=== PATIENT | male | born 1935 | race Caucasian/White ===

== ENCOUNTER 2020-04-18 10:30 | Inpatient (IN) | payer MEDICARE, SELFPAY ==
[2019-05-18 09:24] VITALS: BMI 32.9
[2020-04-18] VITALS (10 sets, daily range): BP systolic 137–149; BP diastolic 64–72; PULSE 61–100; RESP 16–27; TEMP 36.2–36.6; O2SAT 94–97; BMI 31.5; BMI 36.4
--- NOTE | 2020-04-18 10:53 | EKG12_ITS ---
Test Reason : GEN ILLNESS Blood Pressure : / mmHG Vent. Rate : 071 BPM Atrial Rate : 081 BPM P-R Int : 000 ms QRS Dur : 110 ms QT Int : 406 ms P-R-T Axes : 000 -23 107 degrees QTc Int : 441 ms Atrial Fibrillation with controlled rate Incomplete left bundle branch block T wave abnormality, consider lateral ischemia Abnormal ECG Confirmed by ADRI AVILA, PALMA ([id number]), news video editor GEE DUNCAN ([id number]) on 04/22/2020 9:07:53 AM Referred By: [facility] Confirmed By:PALMA RUSH MD
--- NOTE | 2020-04-18 10:55 | ED.DCSUM_ITS ---
History of Present Illness Informant: Patient Onset: Weeks Narrative: 84-year-old male with past medical history of hypertension, hyperlipidemia, Mobitz type I heart block, stage III chronic kidney disease presents with increased lower extremity swelling and shortness of breath. He states his legs have been swelling progressively over the last 3 weeks. Over the last several days he felt short of breath at rest and dyspneic on exertion. Denies orthopnea. States he has a mild dry cough. According to his medication list he stopped taking HCTZ in October 2019 and there are no other diuretics listed. Denies fevers, chills, nausea, vomiting, abdominal pain, diarrhea, or urinary symptoms. Denies chest, arm, jaw, or neck discomfort. Denies orthopnea, palpitations, lightheadedness, dizziness, near syncope, or syncopal episodes. <Xena Zimmer - Last Filed: 04/18/20 12:32> <Eric Franklin - Last Filed: 04/18/20 12:43> Chief Complaint: General Illness Past Medical History Past Medical History: - - Hypertension, hyperlipidemia, stage III chronic kidney disease Smoking Status: Never smoker <Xena Zimmer - Last Filed: 04/18/20 12:32> <rEic Franklin - Last Filed: 04/18/20 12:43> - Allergies and Home Meds Allergies/Adverse Reactions: Allergies pioglitazone [From Actos] Allergy (Verified 05/18/19 09:24) fatigue simvastatin [From Zocor] Allergy (Verified 05/18/19 09:24) myalgia sitagliptin [From Januvia] Allergy (Verified 05/18/19 09:24) unknown Review of Systems General: Denies: Chills, Fever, Sweats Eyes: Denies: Visual changes - bilaterally, Diplopia ENT: Denies: Rhinorrhea, Sore throat Cardiovascular: Denies: Chest pain, Palpitations Respiratory: Reports: Dyspnea, Cough, Dyspnea on exertion. Denies: Sputum, Orthopnea, Paroxysmal nocturnal dyspnea Gastrointestinal: Denies: Abdominal pain, Nausea, Vomiting, Diarrhea, Melena, Hematochezia Genitourinary: Denies: Dysuria, Hematuria, Frequency Musculoskeletal: Reports: Swelling. Denies: Back pain, Extremity Pain Skin: Denies: Rash, Wounds Neurological: Denies: Headache, Weakness, Numbness <Xena Zimmer - Last Filed: 04/18/20 12:32> Physical Exam Vital Signs/Narrative: Vital Signs Temp Pulse Resp BP Pulse Ox 04/18/20 10:31 97.1 F L 76 16 139/64 H 97 Inital Vital Signs reviewed: Yes General: Well nourished, Well developed, No Acute Distress Head: Normocephalic, Atraumatic Eyes: Perrl, EOMI ENT: Moist mucous membranes, No rhinorrhea Neck: Supple, Nontender Cardiovascular: Regular rate, Regular rhythm, No murmurs Respiratory: No distress, Chest nontender, - - crackles throughout lung meyers Abdomen: Soft, Nontender, Normal bowel sounds, - - Mild abdominal distention, soft with no guarding or rebound Back: Nontender, Normal Inspection Extremities: Nontender, - - 3+ pitting edema in bilateral lower extremities to the thighs, significant swelling of the scrotum. No overlying skin changes or warmth. Skin: Normal color, No rash Neurological: Alert, Oriented x3, Cranial nerves II-XII grossly intact, Normal Strength, Normal Sensation Psychological: Normal affect, Normal Mood <Xena Zimmer - Last Filed: 04/18/20 12:32> Vital Signs/Narrative: Vital Signs Temp Pulse Resp BP Pulse Ox 04/18/20 10:31 97.1 F L 76 16 139/64 H 97 <Eric Franklin - Last Filed: 04/18/20 12:43> Diagnostic/Tx/Re-eval Clinical Impression(s) from Imaging Studies Chest X-Ray 04/18/20 11:35 IMPRESSION: Pulmonary congestion/vascular crowding Mild atelectasis/scarring Electronically Signed: Earl Flynn DO at 11:48 EST Tel , Service support , Laboratory Data 04/18/20 04/18/20 11:20 11:20 WBC 12.8 H RBC 4.17 L Hgb 12.0 L Hct 36.8 L MCV 88.2 MCH 28.8 MCHC 32.6 RDW Std Deviation 49.7 H RDW Coeff of Frances 15.4 H Plt Count 153 MPV 12.6 H Immature Gran % (Auto) 0.600 Neut % (Auto) 86.7 H Lymph % (Auto) 3.0 L [place] % (Auto) 8.7 Eos % (Auto) 0.8 Baso % (Auto) 0.2 Absolute Neuts (auto) 11.1 H Absolute Lymphs (auto) 0.39 L Nucleated RBC % 0 Differential Comment SCANNED Sodium 136 Potassium 5.2 H Chloride 109 H Carbon Dioxide 18.0 L Anion Gap 9 BUN 88 H Creatinine 5.71 H Estim Creat Clear Calc 10.30 Est GFR (MDRD) Af Amer 12 L Est GFR (MDRD) Non-Af 10 L BUN/Creatinine Ratio 15.4 Glucose 83 Calcium 8.4 L Total Bilirubin 0.90 AST 30 ALT 67 H Alkaline Phosphatase 169 H Total Protein 6.9 Albumin 2.6 L Globulin 4.3 H Albumin/Globulin Ratio 0.6 L - Rhythm Strip Rhythm Strip: Sinus Rhythm Rate: 71 - 2nd degree AV block Ectopy: None - Medical Decision Making Patient presented with increased lower extremity swelling and shortness of breath x3 weeks. He appears well nontoxic. Vital signs within normal limits. O2 sat 97% on room air. He is in no respiratory distress. Heart is regular rate and rhythm. Lungs have diffuse crackles. He does have 3+ pitting edema in bilateral legs up both thighs with significant scrotal swelling and abdominal distention. Labs show mild leukocytosis and anemia. BUN/creatinine is 88/5.71. No previous labs for comparison. Mild hyperkalemia of 5.2. BNP unable to be obtained because machine is being repaired. EKG shows sinus rhythm with Mobitz 1 which is chronic and asymptomatic. No hyperkalemic changes. Chest x-ray shows pulmonary congestion. Echo from 11/17/2016 shows EF of 55% and no significant valvular abnormalities. He was given IV Lasix 20 mg. Case discussed with hospitalist who was agreeable to admission and he was transferred to the floor in stable condition. <Xena Zimmer - Last Filed: 04/18/20 12:32> - Medical Decision Making Independent history and physical was performed. Patient presents because of dyspnea, dyspnea on exertion, swelling of his extremities. He denies fever, chills night sweats. Patient reported no renal disease to me. 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 Patient has difficulty lying flat. He does report dyspnea on exertion. He denies chest discomfort with exertion. He denies black or maroon-colored stool. Vital signs noted. He appears tachypneic. He is not hypoxic. He has rales noted bilaterally. Heart is regular without murmur, gallop or rub. He has significant pitting edema/anasarca. EKG was obtained to rule out acute cardiac ischemia, appropriate labs. EKG reveals a Mobitz type I second-degree heart block. Chest x-ray reveals co ngestive heart failure/fluid overload state. Creatinine is elevated. Plan is admission to the hospital. <Eric Franklin - Last Filed: 04/18/20 12:43> ED Disposition <Xena Zimmer - Last Filed: 04/18/20 12:32> <Eric Franklin - Last Filed: 04/18/20 12:43> - Plan for ED Patient: Disposition: Acute Care Hospital [facility] Diagnosis: Acute on chronic renal failure, Swelling of both lower extremities, Hyperkalemia, Chronic kidney disease, stage III (moderate), Dyspnea
[2020-04-18 11:32] LABS: Absolute Lymphocyte Count 0.39 X10^3/uL (0.83-4.51); Absolute Neutrophil Count 11.1 X10^3/uL (2.0-7.7); Basophil# 0.02 X10^3/uL; Basophil% 0.2 % (0-1); Eosinophils% 0.8 % (0-5); Hematocrit 36.8 % (40-54); Lymphocyte # 0.39 X10^3/ul (4.0); Mean Corp Hgb Conc 32.6 g/dL (32-36); Mean Corpuscular Hgb 28.8 pg (27.0-32.0); Mean Corpuscular Volume 88.2 fL (80-94); Mean Platelet Vol. 12.6 fl (6.2-12.0); Monocyte# 1.11 X10^3/uL; Monocyte% 8.7 % (0-10); NRBC Flagged by Analyzer 0 % (0-5); Neutrophil # 11.13 X10^3/uL (2.7-7.7); Neutrophil % 86.7 % (47-70); POSITIVE DIFFERENTIAL YES; Platelet Count 153 K/mm3 (150-450); RBC Distribution Width CV 15.4 % (11.6-14.6); RBC Distribution Width SD 49.7 fl (35.1-43.9); Red Blood Count 4.17 M/mm3 (4.6-6.2); White Blood Count 12.8 K/mm3 (4.4-11.0)
[2020-04-18 11:34] LABS: Differential Indicated SCAN CRITERIA MET
--- NOTE | 2020-04-18 11:35 | RAD_ITS ---
STUDY: X-RAY CHEST REASON FOR EXAM: Male, 84 years old. CONCERNED FOR KIDENY AND HEART FAILURE. PT VAGUE ON SX OR DETAILS TECHNIQUE: Single AP portable view of the chest. COMPARISON: None. FINDINGS: Low lung volumes. Cardiac silhouette unremarkable. Pulmonary congestion/vascular crowding. Aorta unremarkable. No focal patchy airspace opacities. No pleural effusions. Mild atelectasis/scarring. Upper abdomen unremarkable. Osseous structures intact with degenerative changes. No pneumothorax. RAD/Chest 1 View (Portable) IMPRESSION: Pulmonary congestion/vascular crowding Mild atelectasis/scarring Electronically Signed: Earl Flynn DO at 11:48 EST Tel , Service support ,
[2020-04-18 11:47] LABS: ALB/GLOB Ratio 0.6 RATIO (0.9-2.4); AST(SGOT) 30 U/L (15-37); Alanine Aminotransfer ALT/SGPT 67 U/L (16-61); Albumin, Serum 2.6 g/dL (3.2-5.0); Alkaline Phosphatase 169 U/L (45-117); Anion Gap 9 (5-15); BUN 88 mg/dL (7-18); BUN/Creat Ratio 15.4 RATIO (10-20); Calcium,Total 8.4 mg/dL (8.5-10.1); Chloride 109 mmol/L (98-107); Creatinine, Serum 5.71 mg/dL (0.70-1.30); Differential Comment SCANNED; EST Glomerular Filtration Rate 10 mL/min (>60); Est Glom Filt Rate - Afr Amer 12 mL/min (>60); Globulin 4.3 g/dL (2.2-4.2); Glucose 83 mg/dL (74-106); Potassium 5.2 mmol/L (3.5-5.1); Protein, Total 6.9 g/dL (6.4-8.2); Sodium Level 136 mmol/L (136-145)
[2020-04-18 12:06] LABS: Mucous, Urine 0 SEEN /hpf (<or=2+); Red Blood Cells-Urine 0 SEEN /hpf (0-5); Squamous Epithelial Cells - UA 0 SEEN /hpf (0-5)
[2020-04-18 12:09] LABS: Color, Urine Straw (Yellow); Glucose, Dipstick Normal (Normal); Ketone-Dipstick Negative (Negative); Leukocyte Esterase-Dipstick 500 /ul (Negative); Nitrite-Dipstick Negative (Negative); Occult Blood-Urine 25 /ul (Negative); Protein-Dipstick 30 mg/dl (Negative); Urine Bilirubin Dipstick Negative (Negative); Urine Clarity Sl. Cloudy (Clear); Urine Urobilinogen Normal (Normal)
[2020-04-18 12:21] LABS: BNP,B-Type NATRIURETIC PEPTIDE 306.8 pg/mL (0-100)
[2020-04-18 12:31] LABS: White Blood Cells 10-25 SEEN /hpf (0-5)
[2020-04-18 12:32] LABS: Bacteria 3+ /hpf (None Seen)
--- NOTE | 2020-04-18 12:32 | HP.PCM_ITS ---
History of Present Illness Date of Admission: 04/18/20 Chief Complaint: generalised edema The patient is a 84 year old M with a PMH as outlined who was at the ED on 04/18/2020 with a complaint of generalized edema. Patient states he is noticed that his legs have been swollen for several days and was also short of breath. He said he could not lay flat and lay on his side. He denied any PND. He states he is making urine and he has not noticed any decrease in quantity of his urine. He denies any chest pain or pressure, palpitations, dizziness, nausea vomiting or diarrhea. He denied any fever or chills. Review of systems otherwise negative. Denies any previous history of heart disease or heart fail ure. In the ED, vitals show temperature of 91.1 with blood pressure of 137/70, pulse rate of 83 respiratory rate of 21. He was saturating at 95% on room air. Chemistry showed sodium of 136 with potassium of 5.2, bicarb of 18 and anion gap of 9. Creatinine was 5.71. BNP was 306.8 and ALP was 169. Troopnin was not checked. Chemistry showed hemoglobin of 12 with WBC of 12.8 and platelets of 15 3. X-ray showed pulmonary congestion and mild atelectasis and EKG showed no acute ST changes. He has been admitted to be managed for KITTY on CKD, and acute heart failure of unknown EF. [] Past Medical History Past Medical History (Chronic Problems): Chronic Problems (Last Reviewed 05/04/18 @ 09:[address] 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 Laron Bacon MD) High risk medication use (Chronic) Z79.899 HLD (hyperlipidemia) (Chronic) E78.5 HTN (hypertension) (Chronic) I10 Chronic kidney disease, stage III (moderate) (Chronic) N18.3 Left bundle-branch block (Chronic) I44.7 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 (Chronic) I44.1 Abnormal electrocardiogram (Chronic) R94.31 Allergies pioglitazone [From Actos] Allergy (Verified 05/18/19 09:24) fatigue simvastatin [From Zocor] Allergy (Verified 05/18/19 09:24) myalgia sitagliptin [From Januvia] Allergy (Verified 05/18/19 09:24) unknown Home Medications: Ambulatory Orders Medication Instructions Recorded amlodipine 10 mg tablet 10 mg PO QDAY 05/12/17 aspirin 81 mg tablet,delayed 81 mg PO QDAY 05/12/17 release insulin glargine 100 unit/mL (3 SC 75 Days #15 05/12/17 mL) subcutaneous pen lisinopril 40 mg tablet 40 mg PO QDAY 05/12/17 cholecalciferol (vitamin D3) 125 5,000 unit PO DAILY 05/04/18 mcg (5,000 unit) capsule glipizide 10 mg tablet 10 mg PO BID tab 05/18/19 Surgical History: Surgical History (Last Reviewed 05/04/18 @ 09:[address] Laron Bacon MD) History of appendectomy Z98.890, Z90.49 History of inguinal hernia repair Z98.890, Z87.19 1970s Psychiatric History: No pertinent psych hx Lives: Spouse/ Significant Other Smoking Status: Never smoker Tobacco Use: Non-smoker Alcohol: None Drugs: None - *Family History Maternal Family History: Family History (Last Reviewed 05/04/18 @ 09:[address] Laron Bacon MD) Mother Hypertension Father Diabetes Review of Systems Constitutional: Denies: Chills, Fever, Malaise, Weakness, Weight Change Eyes: Denies: Blurred vision HEENT: Denies: Head Aches, Sinus Congestion, Sinus Drainage Cardiovascular: Reports: Edema, Orthopnea, - - generalised edema. Denies: Chest Pain, Chest Pressure, Chest Tightness, Heaviness, Light Headedness, Palpitations, Paroxysmal Noc. Dyspnea, Syncope Respiratory: Reports: Shortness of Breath, Shortness of breath at rest, Shortness of breath upon exertion. Denies: Cough, Sputum production Gastrointestinal: Denies: Abdominal Pain, Nausea, Vomiting Genitourinary: Denies: Dysuria Musculoskeletal: Denies: Joint Pain, Joint Tenderness Skin: Denies: Rash, Wounds Neurological: Denies: Numbness, Tingling, Focal weakness Psychiatric: Denies: Anxiety, Depression, Homicidal Ideations, Suicidal Ideations Hematologic/ Lymphatic: Denies: Easy Bruising, Easy Bleeding VTE Information - Inpt Only VTE Present on Admission: No VTE Pharm Prophylaxis ordered?: Yes Patient Problems: Active and Suspected Problems (Last Reviewed 05/04/18 @ 09:[address] Laron Bacon MD) Swelling of both lower extremities (Acute) Hyperkalemia (Acute) Dyspnea (Acute) - Physical Exam Vitals/I&O's: Vital Signs Temp Pulse Resp BP Pulse Ox 97.1 F L 76 16 139/64 H 97 04/18/20 10:31 04/18/20 10:31 04/18/20 10:31 04/18/20 10:31 04/18/20 10:31 Oxygen Delivery Method Room Air Weight: 220 lb Body Mass Index (BMI) 31.5 General: Alert, Oriented x3, Cooperative, No apparent distress HEENT: Atraumatic, PERRLA, EOMI, Normocephalic Oral: Dry Mucosa Neck: Supple, No JVD, Negative Carotid Bruits Lungs: - - diminished breath sounds bibasally. Cardiovascular: Regular rate, Regular Rhythm, Normal S1, Normal S2, No murmurs Abdomen: Bowel Sounds Present, Soft, Non Tender, Non-Distended, No Hepato- splenomegaly, Obese Extremities: No clubbing, No cyanosis, Edema - 3+ pitting edema of both extremities Skin: No rashes, No breakdown Musculoskeletal: No Tenderness to Palpation of Joints or Extremities Lymphatic: No Cervical, Supraclavicular, or Inguinal Adenopathy Neurological: Cranial nerves II-XII grossly intact, Neuro grossly intact, Motor Exam 5/5 strength throughout Psych/Mental Status: Normal Affect, Appropriate, Alert and oriented to time, place, person, mood and affect Laboratory Results 04/18/20 11:20: WBC 12.8 H, RBC 4.17 L, Hgb 12.0 L, Hct 36.8 L, MCV 88.2, MCH 28.8, MCHC 32.6, RDW Std Deviation 49.7 H, RDW Coeff of Frances 15.4 H, Plt Count 153, MPV 12.6 H, Immature Gran % (Auto) 0.600, Neut % (Auto) 86.7 H, Lymph % (Auto) 3.0 L, [place] % (Auto) 8.7, Eos % (Auto) 0.8, Baso % (Auto) 0.2, Absolute Neuts (auto) 11.1 H, Absolute Lymphs (auto) 0.39 L, Nucleated RBC % 0, Differential Comment SCANNED 04/18/20 11:20: Sodium 136, Potassium 5.2 H, Chloride 109 H, Carbon Dioxide 18.0 L, Anion Gap 9, BUN 88 H, Creatinine 5.71 H, Estim Creat Clear Calc 10.30, Est GFR (MDRD) Af Amer 12 L, Est GFR (MDRD) Non-Af 10 L, BUN/Creatinine Ratio 15.4, Glucose 83, Calcium 8.4 L, Total Bilirubin 0.90, AST 30, ALT 67 H, Alkaline Phosphatase 169 H, Total Protein 6.9, Albumin 2.6 L, Globulin 4.3 H, Albumin/Globulin Ratio 0.6 L 04/18/20 11:20: B-Natriuretic Peptide 306.8 H 04/18/20 11:50: Urine Color Straw, Urine Clarity Sl. Cloudy, Urine pH 5.0, Ur Specific [place] 1.010, Urine Protein 30 H, Urine Glucose (UA) Normal, Urine Ketones Negative, Urine Occult Blood 25 H, Urine Nitrite Negative, Urine Bilirubin Negative, Urine Urobilinogen Normal, Ur Leukocyte Esterase 500 H, Urine RBC 0 SEEN, Urine WBC 10-25 SEEN, Ur Squamous Epith Cells 0 SEEN, Urine Bacteria 3+, Urine Mucus 0 SEEN Diagnostic Data Chest X-Ray 04/18/20 11:35 IMPRESSION: Pulmonary congestion/vascular crowding Mild atelectasis/scarring Electronically Signed: Earl Flynn DO at 11:48 EST Tel , Service support , Assessment/Plan All Active Problems (Last Reviewed 05/04/18 @ 09:[address] Laron Bacon MD) Swelling of both lower extremities (Acute) Hyperkalemia (Acute) Dyspnea (Acute) 84 y/o admitted with a complaint of shortness of breath and generalised edema # Acute heart failure with unknown EF * BNP is ~ 300 * CXR shows pulmonary vascular congestion. No 2D echo on file. * Patient given a dose of Lasix 20 mg in the ED. * Will start on Lasix drip on account of severe KITTY on CKD. Patient still making good urine. * Titrate oxygen to maintain saturation above 90%. * Intake and output chart. Fluid restriction thousand 500 cc daily. * 2D echo. * Check troponins and cycle. * covid test pending * #KITTY on CKD 3 * Creatinine is 5.71. No baseline creatinine in EMR although it is documented in the EMR that patient has CKD stage III. * Will check urine electrolytes. Check renal ultrasound * Consult nephrology. * #UTI: UA showed 3+ bacteria. Will start on IV ceftriaxone. WBC is 12.8. Get urine culture. #Hyperkalemia * Potassium is 5.2. This likely due to KITTY on CKD. Give Kayexalate and monitor. * #Non anion gap metabolic acidosis * Creatinine is 18. Anion gap is 9. This likely due to KITTY on CKD. Will monitor. * Should improve with improvement in kidney function. #Diabetes mellitus: ISS. Accuchecks ACHS and glipizide 10 mg twice daily. Also on lantus #Hypertension: Hold lisinopril on account of KITTY on CKD and hyperkalemia. IV hydralazine as needed DVT prophylaxis: Lovenox renally dosed CODE STATUS: Full code * Patient counseled extensively about different types of CODE STATUS including full code, DNR CCA and DNR CCA. Patient elects to be full code. Total rnir-do-rcys time 16 minutes. Inpatient E&M: 40334 Init Hosp L3 Procedures: 62462 Advncd Care Plan 30 Min
[2020-04-18] MEDS: Furosemide 20 MG/2 ML VIAL IV (12:56)
--- NOTE | 2020-04-18 13:52 | ED.RN ---
called pharmacy for an update on rocephin.
[2020-04-18] MEDS: Ceftriaxone 1 GM/50 ML BAG IV (13:56)
--- NOTE | 2020-04-18 15:20 | US_ITS ---
STUDY: RENAL ULTRASOUND - COMPLETE REASON FOR EXAM: Male, 84 years old. KITTY TECHNIQUE: Ultrasound evaluation of the kidneys was performed with real-time and static jackson-scale imaging. COMPARISON: None. FINDINGS: RIGHT KIDNEY: Normal location of the right kidney, which is normal in size. The right kidney measures 12.1 x 5.1 x 6.1 cm. There is a normal cortex of the right kidney. The renal cortex measures 2.1 cm. There is no right renal mass or cyst. There are no right renal calculi. There is no right hydronephrosis. DISTAL RIGHT URETER: There is non-visualization of the distal right ureter. There is no demonstrated right ureterovesical junction calculus. There is a visualized right ureteral jet. LEFT KIDNEY: Normal location of the left kidney, which is normal in size. The left kidney measures 11.9 x 5.6 x 6.8 cm. There is a normal cortex of the left kidney. The renal cortex measures 1.6 cm. There is a cyst measuring 2.6 x 2.5 x 2.1 cm. There are no left renal calculi. There is no left hydronephrosis. DISTAL LEFT URETER: There is non-visualization of the distal left ureter. There is no demonstrated left ureterovesical junction calculus. There is a visualized left ureteral jet. Diffusely increased cortical echoes consistent with nonspecific renal parenchymal disease BLADDER: The bladder is empty containing CHAMORRO catheter. US/Kidney and Bladder IMPRESSION: Nonspecific renal parenchymal disease. Small left renal cyst. Electronically Signed: Abhijeet Moya MD at 20:36 EST , Service support ,
--- NOTE | 2020-04-18 15:59 | PCM.HP.ID ---
Reason for Consult: covid Ag (+) Consulted by: Dr. Orozco History of Present Illness: The patient is a 84 year old M presented with several weeks of BLE edema, orthopnea, PND. Some back aches, but not out of the ordinary. Occasionally takes Aleve. No fever, no change in taste or smell, no headache, no n/v/d. No sick contacts, lives alone, does not go out. Came to ED, found to have KITTY, given ceftriaxone x1 and lasix. Covid Ag (+). Full ROS performed and neg except as noted above. - Medical History Past Medical History (Chronic Problems): Chronic Problems (Last Reviewed 05/04/18 @ 09:[address] Laron Bacon MD) Acute on chronic renal failure (Chronic) High risk medication use (Chronic) HLD (hyperlipidemia) (Chronic) HTN (hypertension) (Chronic) Chronic kidney disease, stage III (moderate) (Chronic) Left bundle-branch block (Chronic) 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 (Chronic) Abnormal electrocardiogram (Chronic) Allergies/Adverse Reactions: Allergies pioglitazone [From Actos] Allergy (Verified 05/18/19 09:24) fatigue simvastatin [From Zocor] Allergy (Verified 05/18/19 09:24) myalgia sitagliptin [From Januvia] Allergy (Verified 05/18/19 09:24) unknown Home Medications: Ambulatory Orders Medication Instructions Recorded amlodipine 10 mg tablet 10 mg PO QDAY 05/12/17 aspirin 81 mg tablet,delayed 81 mg PO QDAY 05/12/17 release lisinopril 40 mg tablet 40 mg PO QDAY 05/12/17 glipizide 10 mg tablet 10 mg PO BID tab 05/18/19 Insulin Glargine [Lantus (BKC)] 30 units SC DINNER 04/18/20 Metoprolol Tartrate 12.5 mg PO BID 04/18/20 - Social History Tobacco Use: non-smoker Vital Signs Temp Pulse Resp BP Pulse Ox 97.8 F 82 16 137/72 H 95 04/18/20 15:56 04/18/20 15:56 04/18/20 15:56 04/18/20 15:56 04/18/20 15:56 Oxygen Delivery Method Room Air Weight: 115.212 kg Body Mass Index (BMI) 36.4 Microbiology Past 72 Hours 04/18/20 13:05 SARS-CoV-2 Antigen (Rapid) - Final Mucosa - Nose SARS-CoV-2 (COVID 19) Laboratory Tests Past 24 Hrs 04/18/20 04/18/20 04/18/20 11:20 11:20 11:20 WBC 12.8 H RBC 4.17 L Hgb 12.0 L Hct 36.8 L MCV 88.2 MCH 28.8 MCHC 32.6 RDW Std Deviation 49.7 H RDW Coeff of Frances 15.4 H Plt Count 153 MPV 12.6 H Immature Gran % (Auto) 0.600 Neut % (Auto) 86.7 H Lymph % (Auto) 3.0 L [place] % (Auto) 8.7 Eos % (Auto) 0.8 Baso % (Auto) 0.2 Absolute Neuts (auto) 11.1 H Absolute Lymphs (auto) 0.39 L Nucleated RBC % 0 Differential Comment SCANNED Sodium 136 Potassium 5.2 H Chloride 109 H Carbon Dioxide 18.0 L Anion Gap 9 BUN 88 H Creatinine 5.71 H Estim Creat Clear Calc 10.30 Est GFR (MDRD) Af Amer 12 L Est GFR (MDRD) Non-Af 10 L BUN/Creatinine Ratio 15.4 Glucose 83 Calcium 8.4 L Total Bilirubin 0.90 AST 30 ALT 67 H Alkaline Phosphatase 169 H B-Natriuretic Peptide 306.8 H Total Protein 6.9 Albumin 2.6 L Globulin 4.3 H Albumin/Globulin Ratio 0.6 L Urine Color Urine Clarity Urine pH Ur Specific [place] Urine Protein Urine Glucose (UA) Urine Ketones Urine Occult Blood Urine Nitrite Urine Bilirubin Urine Urobilinogen Ur Leukocyte Esterase Urine RBC Urine WBC Ur Squamous Epith Cells Urine Bacteria Urine Mucus 04/18/20 11:50 WBC RBC Hgb Hct MCV MCH MCHC RDW Std Deviation RDW Coeff of Frances Plt Count MPV Immature Gran % (Auto) Neut % (Auto) Lymph % (Auto) [place] % (Auto) Eos % (Auto) Baso % (Auto) Absolute Neuts (auto) Absolute Lymphs (auto) Nucleated RBC % Differential Comment Sodium Potassium Chloride Carbon Dioxide Anion Gap BUN Creatinine Estim Creat Clear Calc Est GFR (MDRD) Af Amer Est GFR (MDRD) Non-Af BUN/Creatinine Ratio Glucose Calcium Total Bilirubin AST ALT Alkaline Phosphatase B-Natriuretic Peptide Total Protein Albumin Globulin Albumin/Globulin Ratio Urine Color Straw Urine Clarity Sl. Cloudy Urine pH 5.0 Ur Specific [place] 1.010 Urine Protein 30 H Urine Glucose (UA) Normal Urine Ketones Negative Urine Occult Blood 25 H Urine Nitrite Negative Urine Bilirubin Negative Urine Urobilinogen Normal Ur Leukocyte Esterase 500 H Urine RBC 0 SEEN Urine WBC 10-25 SEEN Ur Squamous Epith Cells 0 SEEN Urine Bacteria 3+ Urine Mucus 0 SEEN - Other Studies Radiology: [] reviewed Other Studies: [] Route of nutrition/ use of supplements: [] Nutritional Intake: [] IV Site: [] Lozano Catheter: [] - Physical Exam General: Alert, Oriented x3, Cooperative, No apparent distress HEENT: Atraumatic, PERRLA, EOMI Neck: Supple, No Nodes Lungs: Rales - dull in bases Cardiovascular: Regular rate, Regular Rhythm Abdomen: Soft, Non Tender, Non-Distended - edema Extremities: Edema Skin: No rashes IV Site: Peripheral, without redness Musculoskeletal: No Tenderness to Palpation of Joints or Extremities Neurological: Cranial nerves II-XII grossly intact - Assessment/Plan Antibiotics: [] Assessment/Plan: [] Active and Suspected Problems (Last Reviewed 05/04/18 @ 09:[address] Laron Bacon MD) Swelling of both lower extremities (Acute) Hyperkalemia (Acute) Dyspnea (Acute) KITTY, BLE edema, orthopnea - covid Ag (+), no clear exposure, no associated symptoms. Does have lymphopenia. Will check covid pcr; if neg, ok to stop isolation. Minimal wbc on UA, ucx pending, will monitor off of abx. Will follow, thank you, aidan Orozco.
[2020-04-18] MEDS: Furosemide 500 MG in Empty Viaflex 50 mL 1 EACH CONT INF (16:18)
--- NOTE | 2020-04-18 16:35 | NURSING ---
CHRISTIAN wraps applied.
--- NOTE | 2020-04-18 16:42 | NURSING ---
about 15 minutes ago blood glucose was 50 gave 2 containers of apple juice, blood glucose now is 82.
--- NOTE | 2020-04-18 16:44 | NURSING ---
dustin legs elevated on pillow
[2020-04-18 17:01] LABS: Bedside Glucose 50 mg/dL (70-110)
[2020-04-18 17:01] LABS: Bedside Glucose 82 mg/dL (70-110)
[2020-04-18 17:34] LABS: Urea Nitrogen, Urine 230 mg/dL (NO RANGE EST.)
[2020-04-18 18:06] LABS: Protein, Urine (Random) 23.9 mg/dL (<11.9); Protein:Creat Ratio 779 mg/g CRE (0-200)
[2020-04-18] MEDS: Sodium Polystyrene Sulfonate 15 GM/60 ML UDC PO (18:42)
--- NOTE | 2020-04-18 19:20 | NURSING ---
Pt denies taking Viagra or any other ED meds in the last 48 to 72 hours.
[2020-04-18 22:21] LABS: Bedside Glucose 103 mg/dL (70-110)
--- NOTE | 2020-04-18 22:53 | CON.PCM_ITS ---
Consultation - Renal 04/18/20 PCP/ Referring MD: Requesting physician: Dr. Orozco Primary care physician: Dr. Jean Yan MD Reason for Consultation:: KITTY on CKD - History of Present Illness History of Present Illness: The patient is a 84 year old M with past history of HTN, hyperlipidemia, and T2DM. The patient also has a history of CKD stage 3 although he is not followed by nephrology. The patient presents with a 2 weeks history of progressive SOB and LE edema. There is no chest pain, orthopnea, and PND. He denies urinary frequency, urgency or hesitancy. He denies gross hematuria. There is no incontinence. The patient denies diarrhea. He denies chronic nausea but has occasional dry heave. He denies chronic use of NSAID. The patient was on lisinopril prior to admission. The patient was found to have SCr of 5.71 mg/dL. There is no prior SCr on [facility] for comparison. - Allergies Allergies: Allergies pioglitazone [From Actos] Allergy (Verified 05/18/19 09:24) fatigue simvastatin [From Zocor] Allergy (Verified 05/18/19 09:24) myalgia sitagliptin [From Januvia] Allergy (Verified 05/18/19 09:24) unknown - Current Medications Current Medications: Current Medications Amlodipine Besylate (Amlodipine 10 Mg Tablet) 10 mg PO DAILY [facility] Aspirin (Aspirin E.C. 81 Mg Tablet) 81 mg PO DAILY [facility] Cholecalciferol (Cholecalciferol (Vit D3) 1,000 Unit (25mcg)) 5,000 unit PO DAILY [facility] Enoxaparin Sodium (Enoxaparin 30 Mg/0.3 Ml Syringe) 30 mg SC DAILY [facility] Glipizide (Glipizide 10 Mg Tablet) 10 mg PO BIDAC [facility] Last Admin: 04/18/20 16:19 Dose: Not Given Documented by: Furosemide 500 mg/ N/A 50 mls @ 1 mls/hr CONT INF .Q50H [facility] Last Admin: 04/18/20 16:18 Dose: 10 mg/hr, 1 mls/hr Documented by: Sodium Chloride () 250 mls @ 15 mls/hr IV .[id number] PRN PRN Reason: Saline Flush Last Infusion: 04/18/20 16:52 Dose: 0 mls/hr Documented by: Sodium Chloride () 250 mls @ 15 mls/hr IV .[id number] PRN PRN Reason: Additional IVPB Infusion Influenza Virus Vaccine Quadrival (Influenza Vaccine (6mos+)/Pf 0.5 Ml Syringe) 0.5 ml IM .ONCE ONE Stop: 04/19/20 10:01 Insulin Human Lispro (Insulin Lispro 100 Unit/Ml Insuln.Pen) 0 unit SC [facility]; Protocol Last Admin: 04/18/20 21:58 Dose: Not Given Documented by: Nitroglycerin (Nitroglycerin (Inpatient Use) 0.4 Mg Tab.Subl) 0.4 mg SUBLINGUAL Q5M PRN PRN Reason: CARDIAC/CHEST PAIN Ondansetron HCl (Ondansetron 4 Mg/2 Ml Vial) 4 mg IV Q8H PRN PRN PRN Reason: NAUSEA/VOMITING Sodium Chloride (0.9% Saline Lock 10 Ml Syringe) 2 - 6 ml IV UD PRN PRN Reason: Pediatric Saline Flush - Past Medical History Past Medical History (Chronic Problems): Chronic Problems (Last Reviewed 05/04/18 @ 09:[address] 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 Laron Bacon MD) Mother Hypertension Father Diabetes Review of Systems Constitutional: Reports: Malaise, Weakness. Denies: Anorexia, Chills, Fever Eyes: Denies: Blurred vision, Double vision, Pain, Redness, Vision Change HEENT: Denies: Difficulty Hearing, Difficulty Swallowing, Ear Pain, Eye Pain, Head Aches, Sinus Drainage, Sore Throat Cardiovascular: Reports: Edema. Denies: Chest Pain, Orthopnea, Palpitations, Paroxysmal Noc. Dyspnea Respiratory: Reports: Shortness of Breath, Shortness of breath at rest, Shortness of breath upon exertion. Denies: Cough, Hemoptysis Gastrointestinal: Reports: Constipation. Denies: Abdominal Pain, Diarrhea, Hematemesis, Hematochezia, Nausea, Melena, Vomiting Genitourinary: Denies: Dysuria, Frequency, Hematuria, Hesitancy, Incontinence, Retention, Urgency Musculoskeletal: Denies: Arm Pain, Joint Pain, Joint swelling, Joint Tenderness Skin: Denies: Rash, Wounds Neurological: Denies: Numbness, Tingling, Focal weakness Psychiatric: Denies: Anxiety, Depression, Homicidal Ideations, Suicidal Ideations Hematologic/ Lymphatic: Denies: Easy Bruising, Easy Bleeding Patient Problems: Active and Suspected Problems (Last Reviewed 05/04/18 @ 09:[address] Laron Bacon MD) Swelling of both lower extremities (Acute) Hyperkalemia (Acute) Dyspnea (Acute) - Physical Exam Vitals/I&O's: Vital Signs Temp Pulse Resp BP Pulse Ox 97.9 F 83 18 144/64 H 94 04/18/20 21:47 04/18/20 21:47 04/18/20 21:47 04/18/20 21:47 04/18/20 21:47 Oxygen Delivery Method Room Air Weight: 115.212 kg Body Mass Index (BMI) 36.4 Intake and Output for Last 24 Hours 04/16/20 04/17/20 04/18/20 23:59 23:59 23:59 Intake Total 358.75 / 358.75 Output Total 700 / 700 Balance -341.25 / -341.25 General: Alert, Oriented x3, Cooperative HEENT: Atraumatic, PERRLA, EOMI, Normocephalic Oral: Moist Mucosa Neck: Supple, No JVD Lungs: Diminished - breath sound at bases Cardiovascular: Regular rate, Normal S1, Normal S2 Abdomen: Bowel Sounds Present, Soft, Non Tender Extremities: No clubbing, No cyanosis, Edema - 3+ Skin: No rashes, No breakdown Musculoskeletal: No Tenderness to Palpation of Joints or Extremities Lymphatic: No Cervical, Supraclavicular, or Inguinal Adenopathy Neurological: Cranial nerves II-XII grossly intact Psych/Mental Status: Normal Affect Microbiology Past 72 Hours 04/18/20 13:05 Mucosa - Nose SARS-CoV-2 Antigen (Rapid) - Final SARS-CoV-2 (COVID 19) Laboratory Results 04/18/20 11:20: WBC 12.8 H, RBC 4.17 L, Hgb 12.0 L, Hct 36.8 L, MCV 88.2, MCH 28.8, MCHC 32.6, RDW Std Deviation 49.7 H, RDW Coeff of Frances 15.4 H, Plt Count 153, MPV 12.6 H, Immature Gran % (Auto) 0.600, Neut % (Auto) 86.7 H, Lymph % (Auto) 3.0 L, [place] % (Auto) 8.7, Eos % (Auto) 0.8, Baso % (Auto) 0.2, Absolute Neuts (auto) 11.1 H, Absolute Lymphs (auto) 0.39 L, Nucleated RBC % 0, Differential Comment SCANNED 04/18/20 11:20: Sodium 136, Potassium 5.2 H, Chloride 109 H, Carbon Dioxide 18.0 L, Anion Gap 9, BUN 88 H, Creatinine 5.71 H, Estim Creat Clear Calc 10.30, Est GFR (MDRD) Af Amer 12 L, Est GFR (MDRD) Non-Af 10 L, BUN/Creatinine Ratio 15.4, Glucose 83, Calcium 8.4 L, Total Bilirubin 0.90, AST 30, ALT 67 H, Alkaline Phosphatase 169 H, Total Protein 6.9, Albumin 2.6 L, Globulin 4.3 H, Albumin/Globulin Ratio 0.6 L 04/18/20 11:20: B-Natriuretic Peptide 306.8 H 04/18/20 11:50: Urine Color Straw, Urine Clarity Sl. Cloudy, Urine pH 5.0, Ur Specific [place] 1.010, Urine Protein 30 H, Urine Glucose (UA) Normal, Urine Ketones Negative, Urine Occult Blood 25 H, Urine Nitrite Negative, Urine Bilirubin Negative, Urine Urobilinogen Normal, Ur Leukocyte Esterase 500 H, Urine RBC 0 SEEN, Urine WBC 10-25 SEEN, Ur Squamous Epith Cells 0 SEEN, Urine Bacteria 3+, Urine Mucus 0 SEEN 04/18/20 16:00: Urine Creatinine 28.60, Urine Urea Nitrogen 230 04/18/20 16:00: U Random Total Protein 23.9 H, Urine Creatinine 30.70, Protein/Creatinin Ratio 779 H 04/18/20 16:10: COVID-19 (EZEKIEL) Not Detected 04/18/20 16:13: POC Glucose 50 L 04/18/20 16:39: POC Glucose 82 04/18/20 17:37: Troponin I 0.016 04/18/20 20:42: Troponin I 0.016 04/18/20 21:56: POC Glucose 103 Current Medications Amlodipine Besylate (Amlodipine 10 Mg Tablet) 10 mg PO DAILY [facility] Aspirin (Aspirin E.C. 81 Mg Tablet) 81 mg PO DAILY [facility] Cholecalciferol (Cholecalciferol (Vit D3) 1,000 Unit (25mcg)) 5,000 unit PO DAILY [facility] Enoxaparin Sodium (Enoxaparin 30 Mg/0.3 Ml Syringe) 30 mg SC DAILY [facility] Glipizide (Glipizide 10 Mg Tablet) 10 mg PO BIDAC [facility] Last Admin: 04/18/20 16:19 Dose: Not Given Documented by: Furosemide 500 mg/ N/A 50 mls @ 1 mls/hr CONT INF .Q50H [facility] Last Admin: 04/18/20 16:18 Dose: 10 mg/hr, 1 mls/hr Documented by: Sodium Chloride () 250 mls @ 15 mls/hr IV .[id number] PRN PRN Reason: Saline Flush Last Infusion: 04/18/20 16:52 Dose: 0 mls/hr Documented by: Sodium Chloride () 250 mls @ 15 mls/hr IV .[id number] PRN PRN Reason: Additional IVPB Infusion Influenza Virus Vaccine Quadrival (Influenza Vaccine (6mos+)/Pf 0.5 Ml Syringe) 0.5 ml IM .ONCE ONE Stop: 04/19/20 10:01 Insulin Human Lispro (Insulin Lispro 100 Unit/Ml Insuln.Pen) 0 unit SC [facility]; Protocol Last Admin: 04/18/20 21:58 Dose: Not Given Documented by: Nitroglycerin (Nitroglycerin (Inpatient Use) 0.4 Mg Tab.Subl) 0.4 mg SUBLINGUAL Q5M PRN PRN Reason: CARDIAC/CHEST PAIN Ondansetron HCl (Ondansetron 4 Mg/2 Ml Vial) 4 mg IV Q8H PRN PRN PRN Reason: NAUSEA/VOMITING Sodium Chloride (0.9% Saline Lock 10 Ml Syringe) 2 - 6 ml IV UD PRN PRN Reason: Pediatric Saline Flush Assessment/Plan All Active Problems (Last Reviewed 05/04/18 @ 09:[address] Laron Bacon MD) Swelling of both lower extremities (Acute) Hyperkalemia (Acute) Dyspnea (Acute) 1. Acute kidney injury on chronic kidney disease. The pt has CK stage 3 on history. Possible CKD from diabetic nephropathy. However, there is no older/recent SCr for comparison. Will try to get more recent SCr from Dr. Nielsen office on Tuesday. KITTY is likely due to cardiorenal syndrome. UA showed 1+ protein but no RBC. Will check UPCR. Agree with diuresing the pt since he is volume overloaded (edema, pulmonary vascular congestion on Xray, and diminished breath sound on exam). Await echocardiogram Will check renal ultrasound, urine indices. No urgent need for dialysis tonight. Recheck renal function in am. 2. Hyperkalemia. Mildly increased K at 5.2. Hyperkalemia is due to KITTY and prior use of ACEI. Agree with holding lisinopril. Recheck K in am. Renal diet. 3. Metabolic acidosis. Serum HCO3 is 18. Recheck in am. No need for naHCO3 at this point. 4. Volume overload. May be due to KITTY/CKD. owever, would check echocardiogram as well. Agree with diuresis. D/w Dr. Orozco.
[2020-04-19] VITALS (17 sets, daily range): BP systolic 96–142; BP diastolic 52–83; PULSE 48–115; RESP 17–24; TEMP 36.6–37.4; O2SAT 83–97
[2020-04-19 06:31] LABS: Bedside Glucose 91 mg/dL (70-110)
[2020-04-19 06:31] LABS: Bedside Glucose 95 mg/dL (70-110)
--- NOTE | 2020-04-19 07:43 | PCM.PN.HOSP ---
Patient Problems: Active and Suspected Problems (Last Reviewed 05/04/18 @ 09:[address] Laron Bacon MD) Swelling of both lower extremities (Acute) Hyperkalemia (Acute) Dyspnea (Acute) Subjective: Patient seen and examined. He was admitted with a complaint of shortness of breath and lower extremity edema. He is being managed for acute heart failure of unknown EF, and KITTY on CKD. COVID antigen test was initially positive; however, ID reviewed patient and felt there was low suspicion for COVID; COVID pcr was therefore ordered which was negative. Patient, per ID recommendations, will therefore be taken out of isolation. He has no complaints this morning. Shortness of breath is improving. Review of systems is otherwise negative. Vitals/I&O's: Vital Signs Temp Pulse Resp BP Pulse Ox 98.3 F 72 20 H 134/58 H 95 04/19/20 06:10 04/19/20 07:00 04/19/20 06:10 04/19/20 06:10 04/19/20 06:10 Oxygen Flow Rate (L/min) 2 Oxygen Delivery Method Nasal Cannula Weight: 254 lb Body Mass Index (BMI) 36.4 Intake and Output for Last 24 Hours 04/17/20 04/18/20 04/19/20 23:59 23:59 23:59 Intake Total 358.75 / 358.75 240 / 240 Output Total 700 / 700 425 / 425 Balance -341.25 / -341.25 -185 / -185 General: Alert, Oriented x3, Cooperative, No apparent distress HEENT: Atraumatic, PERRLA, EOMI, Normocephalic Oral: Dry Mucosa Neck: Supple, No JVD, Negative Carotid Bruits Lungs: - - diminished breath sounds bibasally. Cardiovascular: Regular rate, Regular Rhythm, Normal S1, Normal S2, No murmurs Abdomen: Bowel Sounds Present, Soft, Non Tender, Non-Distended, No Hepato-splenomegaly, Obese Extremities: No clubbing, No cyanosis, Edema - 3+ pitting edema of both extremities Skin: No rashes, No breakdown Musculoskeletal: No Tenderness to Palpation of Joints or Extremities Lymphatic: No Cervical, Supraclavicular, or Inguinal Adenopathy Neurological: Cranial nerves II-XII grossly intact, Neuro grossly intact, Motor Exam 5/5 strength throughout Psych/Mental Status: Normal Affect, Appropriate, Alert and oriented to time, place, person, mood and affect Microbiology Past 72 Hours 04/18/20 13:05 Mucosa - Nose SARS-CoV-2 Antigen (Rapid) - Final SARS-CoV-2 (COVID 19) Laboratory Results 04/18/20 11:20: WBC 12.8 H, RBC 4.17 L, Hgb 12.0 L, Hct 36.8 L, MCV 88.2, MCH 28.8, MCHC 32.6, RDW Std Deviation 49.7 H, RDW Coeff of Frances 15.4 H, Plt Count 153, MPV 12.6 H, Immature Gran % (Auto) 0.600, Neut % (Auto) 86.7 H, Lymph % (Auto) 3.0 L, [place] % (Auto) 8.7, Eos % (Auto) 0.8, Baso % (Auto) 0.2, Absolute Neuts (auto) 11.1 H, Absolute Lymphs (auto) 0.39 L, Nucleated RBC % 0, Differential Comment SCANNED 04/18/20 11:20: Sodium 136, Potassium 5.2 H, Chloride 109 H, Carbon Dioxide 18.0 L, Anion Gap 9, BUN 88 H, Creatinine 5.71 H, Estim Creat Clear Calc 10.30, Est GFR (MDRD) Af Amer 12 L, Est GFR (MDRD) Non-Af 10 L, BUN/Creatinine Ratio 15.4, Glucose 83, Calcium 8.4 L, Total Bilirubin 0.90, AST 30, ALT 67 H, Alkaline Phosphatase 169 H, Total Protein 6.9, Albumin 2.6 L, Globulin 4.3 H, Albumin/Globulin Ratio 0.6 L 04/18/20 11:20: B-Natriuretic Peptide 306.8 H 04/18/20 11:50: Urine Color Straw, Urine Clarity Sl. Cloudy, Urine pH 5.0, Ur Specific [place] 1.010, Urine Protein 30 H, Urine Glucose (UA) Normal, Urine Ketones Negative, Urine Occult Blood 25 H, Urine Nitrite Negative, Urine Bilirubin Negative, Urine Urobilinogen Normal, Ur Leukocyte Esterase 500 H, Urine RBC 0 SEEN, Urine WBC 10-25 SEEN, Ur Squamous Epith Cells 0 SEEN, Urine Bacteria 3+, Urine Mucus 0 SEEN 04/18/20 16:00: Urine Creatinine 28.60, Urine Urea Nitrogen 230 04/18/20 16:00: U Random Total Protein 23.9 H, Urine Creatinine 30.70, Protein/Creatinin Ratio 779 H 04/18/20 16:10: COVID-19 (EZEKIEL) Not Detected 04/18/20 16:13: POC Glucose 50 L 04/18/20 16:39: POC Glucose 82 04/18/20 17:37: Troponin I 0.016 04/18/20 20:42: Troponin I 0.016 04/18/20 21:56: POC Glucose 103 04/18/20 23:29: Troponin I 0.020 04/19/20 04:54: POC Glucose 95 04/19/20 05:31: POC Glucose 91 04/19/20 07:22: WBC Pending, RBC Pending, Hgb Pending, Hct Pending, MCV Pending, MCH Pending, MCHC Pending, RDW Std Deviation Pending, RDW Coeff of Frances Pending, Plt Count Pending, Neut % (Auto) Pending, Absolute Neuts (auto) Pending 04/19/20 07:22: Sodium Pending, Potassium Pending, Chloride Pending, Carbon Dioxide Pending, Anion Gap Pending, BUN Pending, Creatinine Pending, Est GFR (MDRD) Af Amer Pending, Est GFR (MDRD) Non-Af Pending, BUN/Creatinine Ratio Pending, Glucose Pending, Calcium Pending, TSH Pending Diagnostic Data Chest X-Ray 04/18/20 11:35 IMPRESSION: Pulmonary congestion/vascular crowding Mild atelectasis/scarring Electronically Signed: Earl Flynn DO at 11:48 EST Tel , Service support , Renal Ultrasound 04/18/20 15:20 IMPRESSION: Nonspecific renal parenchymal disease. Small left renal cyst. Electronically Signed: Abhijeet Moya MD at 20:36 EST , Service support , Current Medications Amlodipine Besylate (Amlodipine 10 Mg Tablet) 10 mg PO DAILY [facility] Aspirin (Aspirin E.C. 81 Mg Tablet) 81 mg PO DAILY [facility] Cholecalciferol (Cholecalciferol (Vit D3) 1,000 Unit (25mcg)) 5,000 unit PO DAILY [facility] Enoxaparin Sodium (Enoxaparin 30 Mg/0.3 Ml Syringe) 30 mg SC DAILY [facility] Glipizide (Glipizide 10 Mg Tablet) 10 mg PO BIDAC [facility] Last Admin: 04/18/20 16:19 Dose: Not Given Documented by: Furosemide 500 mg/ N/A 50 mls @ 1 mls/hr CONT INF .Q50H [facility] Last Admin: 04/18/20 16:18 Dose: 10 mg/hr, 1 mls/hr Documented by: Sodium Chloride () 250 mls @ 15 mls/hr IV .[id number] PRN PRN Reason: Saline Flush Last Infusion: 04/18/20 16:52 Dose: 0 mls/hr Documented by: Sodium Chloride () 250 mls @ 15 mls/hr IV .[id number] PRN PRN Reason: Additional IVPB Infusion Influenza Virus Vaccine Quadrival (Influenza Vaccine (6mos+)/Pf 0.5 Ml Syringe) 0.5 ml IM .ONCE ONE Stop: 04/19/20 10:01 Insulin Human Lispro (Insulin Lispro 100 Unit/Ml Insuln.Pen) 0 unit SC [facility]; Protocol Last Admin: 04/19/20 06:06 Dose: Not Given Documented by: Nitroglycerin (Nitroglycerin (Inpatient Use) 0.4 Mg Tab.Subl) 0.4 mg SUBLINGUAL Q5M PRN PRN Reason: CARDIAC/CHEST PAIN Ondansetron HCl (Ondansetron 4 Mg/2 Ml Vial) 4 mg IV Q8H PRN PRN PRN Reason: NAUSEA/VOMITING Sodium Chloride (0.9% Saline Lock 10 Ml Syringe) 2 - 6 ml IV UD PRN PRN Reason: Pediatric Saline Flush STROKE Vital Signs/Narrative: Vital Signs Temp Pulse Resp BP Pulse Ox 04/19/20 07:00 72 04/19/20 06:10 98.3 F 88 20 H 134/58 H 95 04/19/20 06:00 85 04/19/20 05:28 99.3 F H 98 24 H 138/83 H 94 04/19/20 05:14 98.3 F 97 24 H 142/78 H 95 04/19/20 05:01 98.0 F 109 H 22 H 123/52 H 94 04/19/20 04:45 98.5 F 115 H 83 Medical Necessity - Tobacco Use Smoking Status: Never smoker Tobacco Use: Non-smoker Assessment/Plan All Active Problems (Last Reviewed 05/04/18 @ 09:[address] Laron Bacon MD) Swelling of both lower extremities (Acute) Hyperkalemia (Acute) Dyspnea (Acute) # Acute heart failure with unknown EF BNP is ~ 300 CXR shows pulmonary vascular congestion. No 2D echo on file. on IV lasix drip o/a of severe KITTY on CKD 2D echo pending covid antigen was positive, but PCR was negative. troponins x 3 are negative. will consult cardiology fluid restriction to 1500cc daily. monitor intake and output #KITTY on CKD 3 Creatinine was 5.71 on admission. Cr is up to 5.85 today renal USG showed nonspecific renal parenchymal disese and small left renal cyst. . Will check urine electrolytes. nephrology on board; feel IKTTY is likely due to cardiorenal syndrome. #UTI: UA showed 3+ bacteria. ID recommends holding off on on bacteria o/a of minimal wbc on UA. Await urine culture. #Hyperkalemia Potassium is 5.2. This likely due to KITTY on CKD and CHRISTIAN inhibitor use. potassium is 4.9 todya #Non anion gap metabolic acidosis bicarb is 16 today. Likely due to worsening kidney disease. #Diabetes mellitus: ISS. Accuchecks ACHS and glipizide 10 mg twice daily. Also on lantus #Hypertension: Hold lisinopril on account of KITTY on CKD and hyperkalemia. IV hydralazine as needed DVT prophylaxis: Lovenox renally dosed CODE STATUS: Full code Inpatient E&M: 00402 Subs Hosp L3
[2020-04-19] MEDS: amLODIPine 10 MG Tablet PO (08:09)
[2020-04-19] MEDS: glipiZIDE 10 MG Tablet PO ×2 (08:09→15:50)
[2020-04-19] MEDS: Aspirin E.C. 81 MG Tablet PO (08:09)
[2020-04-19] MEDS: Enoxaparin 30 MG/0.3 ML Syringe SC (08:09)
[2020-04-19 08:26] LABS: Anion Gap 13 (5-15); BUN 98 mg/dL (7-18); BUN/Creat Ratio 16.8 RATIO (10-20); Calcium,Total 7.9 mg/dL (8.5-10.1); Chloride 106 mmol/L (98-107); Creatinine, Serum 5.85 mg/dL (0.70-1.30); EST Glomerular Filtration Rate 10 mL/min (>60); Est Glom Filt Rate - Afr Amer 12 mL/min (>60); Estimated Creatinine Clearance 10.05 ml/min; Glucose 140 mg/dL (74-106); Potassium 4.9 mmol/L (3.5-5.1); Sodium Level 135 mmol/L (136-145); Thyroid Stim Hormone (TSH) 0.34 uIU/mL (0.358-3.74)
--- NOTE | 2020-04-19 08:42 | NURSING ---
GLASSES BROUGHT IN FROM HOME PLACED IN PTS ROOM
[2020-04-19 08:43] LABS: Absolute Lymphocyte Count 0.12 X10^3/uL (0.83-4.51); Absolute Neutrophil Count 8.5 X10^3/uL (2.0-7.7); Basophil# 0.02 X10^3/uL; Basophil% 0.2 % (0-1); Eosinophil# 0.03 X10^3/uL; Eosinophils% 0.3 % (0-5); Hematocrit 33.9 % (40-54); Hemoglobin 10.7 g/dL (13.0-16.5); Lymphocyte # 0.12 X10^3/ul (4.0); Lymphocyte % 1.4 % (19-41); Mean Corp Hgb Conc 31.6 g/dL (32-36); Mean Corpuscular Hgb 28.2 pg (27.0-32.0); Mean Corpuscular Volume 89.2 fL (80-94); Mean Platelet Vol. 12.1 fl (6.2-12.0); Monocyte# 0.08 X10^3/uL; Monocyte% 0.9 % (0-10); NRBC Flagged by Analyzer 0 % (0-5); Neutrophil % 95.8 % (47-70); POSITIVE DIFFERENTIAL YES; Platelet Count 140 K/mm3 (150-450); RBC Distribution Width CV 15.6 % (11.6-14.6); RBC Distribution Width SD 51.3 fl (35.1-43.9); White Blood Count 8.9 K/mm3 (4.4-11.0)
[2020-04-19 09:08] LABS: Differential Indicated SCAN CRITERIA MET
[2020-04-19 09:53] LABS: Hypochromasia 1+; Platelet Estimate SLT DEC (ADEQ)
--- NOTE | 2020-04-19 10:10 | CASEMGMT ---
RN CM Face to Face with patient for initial transition planning/care coordination assessment. RN CM introduced self and role at [facility]. Patient lying in bed, alert and oriented. Patient willing to participate in assessment and is able to answer all questions appropriately. Care providers, pharmacy, and demographics verified. Patient wishes to discharge home, denies need for home health at this time. Patient states he has no further needs or concerns at this time. CM to follow for discharge planning needs that may arise. PCP: Yuriy Specialists: Arleen nurse specialist Preferred Pharmacy: [facility] Insurance: [employer] Prescription Benefit: yes Living Will/HPOA: none LNOK: daughter Living Arrangements: Patient lives alone in a single story home with ramp to enter the home. Patient states he is independent at home. Transportation: self/ son or daughter DME/HHC: Patient states he has cane, walker, and raised toilet at home. Patient would like [employer] if needs home oxygen. Disposition Plan: Patient to discharge home with family support and follow-up plans in place. Anne-Marie GARRISON, RN, CM
[2020-04-19 12:05] LABS: Bedside Glucose 145 mg/dL (70-110)
--- NOTE | 2020-04-19 14:41 | PN.RENAL_ITS ---
Patient Problems: Active and Suspected Problems (Last Reviewed 05/04/18 @ 09:[address] Laron Bacon MD) Swelling of both lower extremities (Acute) Hyperkalemia (Acute) Dyspnea (Acute) Subjective: SOB. No N/V/D - Physical Exam Vitals/I&O's: Vital Signs Temp Pulse Resp BP Pulse Ox 97.9 F 73 17 134/62 H 97 04/19/20 14:03 04/19/20 14:03 04/19/20 14:03 04/19/20 14:03 04/19/20 14:03 Oxygen Flow Rate (L/min) 2 Oxygen Delivery Method Nasal Cannula Weight: 115.212 kg Body Mass Index (BMI) 36.4 Intake and Output for Last 24 Hours 04/17/20 04/18/20 04/19/20 23:59 23:59 23:59 Intake Total 358.75 / 358.75 480 / 480 Output Total 700 / 700 575 / 575 Balance -341.25 / -341.25 -95 / -95 General: Alert, Oriented x3 HEENT: Atraumatic Oral: Moist Mucosa Neck: Supple, No JVD Lungs: - - decreased BS over both lungs baes Cardiovascular: Regular rate, Regular Rhythm, Normal S1, Normal S2 Abdomen: Bowel Sounds Present, Soft, Non Tender, Non-Distended Extremities: No clubbing, Edema - +3 edema of LE Musculoskeletal: No Tenderness to Palpation of Joints or Extremities Lymphatic: No Cervical, Supraclavicular, or Inguinal Adenopathy Neurological: Cranial nerves II-XII grossly intact, Neuro grossly intact Microbiology Past 72 Hours 04/18/20 11:50 Urine, Clean Catch Urine Culture - Preliminary GNR lactose side boss 04/18/20 13:05 Mucosa - Nose SARS-CoV-2 Antigen (Rapid) - Final SARS-CoV-2 (COVID 19) Laboratory Results 04/18/20 16:00: Urine Creatinine 28.60, Urine Urea Nitrogen 230 04/18/20 16:00: U Random Total Protein 23.9 H, Urine Creatinine 30.70, Protein/Creatinin Ratio 779 H 04/18/20 16:10: COVID-19 (EZEKIEL) Not Detected 04/18/20 16:13: POC Glucose 50 L 04/18/20 16:39: POC Glucose 82 04/18/20 17:37: Troponin I 0.016 04/18/20 20:42: Troponin I 0.016 04/18/20 21:56: POC Glucose 103 04/18/20 23:29: Troponin I 0.020 04/19/20 04:54: POC Glucose 95 04/19/20 05:31: POC Glucose 91 04/19/20 07:22: WBC 8.9, RBC 3.80 L, Hgb 10.7 L, Hct 33.9 L, MCV 89.2, MCH 28.2, MCHC 31.6 L, RDW Std Deviation 51.3 H, RDW Coeff of Frances 15.6 H, Plt Count 140 L, MPV 12.1 H, Immature Gran % (Auto) 1.400 H, Neut % (Auto) 95.8 H, Lymph % (Auto) 1.4 L, [place] % (Auto) 0.9, Eos % (Auto) 0.3, Baso % (Auto) 0.2, Absolute Neuts (auto) 8.5 H, Absolute Lymphs (auto) 0.12 L, Nucleated RBC % 0, Platelet Estimate SLT DEC, Hypochromasia 1+ 04/19/20 07:22: Sodium 135 L, Potassium 4.9, Chloride 106, Carbon Dioxide 16.0 L , Anion Gap 13, BUN 98 H, Creatinine 5.85 H, Estim Creat Clear Calc 10.05, Est GFR (MDRD) Af Amer 12 L, Est GFR (MDRD) Non-Af 10 L, BUN/Creatinine Ratio 16.8, Glucose 140 H, Calcium 7.9 L, TSH 0.34 L 04/19/20 11:03: POC Glucose 145 H Current Medications Amlodipine Besylate (Amlodipine 10 Mg Tablet) 10 mg PO DAILY [facility] Last Admin: 04/19/20 08:09 Dose: 10 mg Documented by: Aspirin (Aspirin E.C. 81 Mg Tablet) 81 mg PO DAILY [facility] Last Admin: 04/19/20 08:09 Dose: 81 mg Documented by: Cholecalciferol (Cholecalciferol (Vit D3) 1,000 Unit (25mcg)) 5,000 unit PO DAILY [facility] Last Admin: 04/19/20 08:09 Dose: 5,000 unit Documented by: Enoxaparin Sodium (Enoxaparin 30 Mg/0.3 Ml Syringe) 30 mg SC DAILY [facility] Last Admin: 04/19/20 08:09 Dose: 30 mg Documented by: Glipizide (Glipizide 10 Mg Tablet) 10 mg PO BIDAC [facility] Last Admin: 04/19/20 08:09 Dose: 10 mg Documented by: Furosemide 500 mg/ N/A 50 mls @ 1 mls/hr CONT INF .Q50H [facility] Last Admin: 04/18/20 16:18 Dose: 10 mg/hr, 1 mls/hr Documented by: Sodium Chloride () 250 mls @ 15 mls/hr IV .[id number] PRN PRN Reason: Saline Flush Last Infusion: 04/18/20 16:52 Dose: 0 mls/hr Documented by: Sodium Chloride () 250 mls @ 15 mls/hr IV .[id number] PRN PRN Reason: Additional IVPB Infusion Insulin Human Lispro (Insulin Lispro 100 Unit/Ml Insuln.Pen) [address] [facility]; Protocol Last Admin: 04/19/20 11:03 Dose: Not Given Documented by: Nitroglycerin (Nitroglycerin (Inpatient Use) 0.4 Mg Tab.Subl) 0.4 mg SUBLINGUAL Q5M PRN PRN Reason: CARDIAC/CHEST PAIN Ondansetron HCl (Ondansetron 4 Mg/2 Ml Vial) 4 mg IV Q8H PRN PRN PRN Reason: NAUSEA/VOMITING Sodium Chloride (0.9% Saline Lock 10 Ml Syringe) 2 - 6 ml IV UD PRN PRN Reason: Pediatric Saline Flush Medical Necessity - Tobacco Use Smoking Status: Never smoker Tobacco Use: Non-smoker Assessment/Plan All Active Problems (Last Reviewed 05/04/18 @ 09:[address] Laron Bacon MD) Swelling of both lower extremities (Acute) Hyperkalemia (Acute) Dyspnea (Acute) 1. Acute kidney injury on chronic kidney disease. The pt has CK stage 3 on history. Possible CKD from diabetic nephropathy. However, there is no recent SCr for comparison. W KITTY is likely due to cardiorenal syndrome. UA showed 1+ protein but no RBC. UPCR is 790 mg/g Cr is stable at 5.8 mg/dl Agree with diuresing the pt since he is volume overloaded . Will increase lasix dose to 20 mg /hour Await echocardiogram renal US showed no hydro No urgent need for dialysis tonight. Recheck renal function in am. 2. Hyperkalemia. Improved with diuresis Hyperkalemia is due to KITTY and prior use of ACEI. Agree with holding lisinopril. Recheck K in am. Renal diet. 3. Metabolic acidosis. Serum HCO3 is 16. Recheck in am. No need for naHCO3 at this point. 4. Volume overload. May be due to KITTY/CKD and also CHf, would check echocardiogram as well. Will increase lasix drip dose to 20 mg /hour. D/w Dr. Orozco.
[2020-04-19] MEDS: Furosemide 500 MG in Empty Viaflex 50 mL 1 EACH CONT INF (15:41)
[2020-04-19] MEDS: Insulin Lispro 100 UNIT/ML INSULN.PEN SC ×2 (15:49→21:34)
[2020-04-19 16:40] LABS: Bedside Glucose 172 mg/dL (70-110)
--- NOTE | 2020-04-19 19:13 | PCM.CONS.C ---
Reason for Consult Date of Consultation: 04/19/20 Reason for Consultation: Marked swelling of the lower extremities and possibly ascites History of Present Illness: The patient is a 84 year old M has been getting progressive swelling of the abdomen and lower extremities over for 3 weeks time. He denies any PND or orthopnea. He is more weaker than normal. He denies any chest pain. On admission patient was found to be in stage IV renal failure. The last echocardiogram was 2016 at that time there was mild concentric hypertrophy of the left ventricle. Ejection fraction of both left and right ventricles were normal. He is known to have hypertension, diabetes and hyperlipidemia. He is a non-smoker and nondrinker. He is not an excessive water compulsive drinker. There has been no history of myocardial infarct or CVA. He is known to have chronic left bundle branch block [] Past Medical History Allergies/Adverse Reactions: Allergies pioglitazone [From Actos] Allergy (Verified 05/18/19 09:24) fatigue simvastatin [From Zocor] Allergy (Verified 05/18/19 09:24) myalgia sitagliptin [From Januvia] Allergy (Verified 05/18/19 09:24) unknown Home Medications: Ambulatory Orders Medication Instructions Recorded amlodipine 10 mg tablet 10 mg PO QDAY 05/12/17 aspirin 81 mg tablet,delayed 81 mg PO QDAY 05/12/17 release lisinopril 40 mg tablet 40 mg PO QDAY 05/12/17 glipizide 10 mg tablet 10 mg PO BID tab 05/18/19 Insulin Glargine [Lantus (BKC)] 30 units SC DINNER 04/18/20 Metoprolol Tartrate 12.5 mg PO BID 04/18/20 Past Medical History (Chronic Problems): Chronic Problems (Last Reviewed 05/04/18 @ 09:[address] 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 Laron Bacon MD) Mother Hypertension Father Diabetes Lives: Spouse/ Significant Other Smoking Status: Never smoker Tobacco Use: Non-smoker Alcohol: None Drugs: None Review of Systems - Review of Systems General: Reports: Fatigue Cardiovascular: Reports: Shortness of Breath with Exertion. Denies: Chest Discomfort, Orthopnea, PND Respiratory: Reports: Shortness of Breath Gastrointestinal: Reports: - - Swelling of the abdomen Genitourinary: Denies: Dysuria, Hematuria Neurological: Denies: Dizziness Objective: Vital Signs Temp Pulse Resp BP Pulse Ox 97.9 F 48 L 17 134/62 H 97 04/19/20 14:03 04/19/20 14:59 04/19/20 14:03 04/19/20 14:03 04/19/20 14:03 Oxygen Flow Rate (L/min) 2 Oxygen Delivery Method Nasal Cannula Weight: 253 lb 15.983 oz Body Mass Index (BMI) 36.4 Intake and Output for Last 24 Hours 04/17/20 04/18/20 04/19/20 23:59 23:59 23:59 Intake Total 358.75 / 358.75 890 / 890 Output Total 700 / 700 825 / 825 Balance -341.25 / -341.25 65 / 65 General: Awake, Alert, Oriented x 3, Cooperative, No Acute Distress Neck: Supple, No JVD Lungs: Clear to auscultation Cardiovascular: Regular Rhythm, No Murmurs Abdomen: Non Tender, Distended, - - Possibly ascites Extremities: Bilaterel Edema +4 Neurological: No Focal Motor or Sensory Deficit Psych/Mental Status: Appropriate, Normal Affect 04/18/20 20:42: Troponin I 0.016 04/18/20 23:29: Troponin I 0.020 04/19/20 07:22: WBC 8.9, RBC 3.80 L, Hgb 10.7 L, Hct 33.9 L, MCV 89.2, MCH 28.2, MCHC 31.6 L, Plt Count 140 L, MPV 12.1 H, Immature Gran % (Auto) 1.400 H, Neut % (Auto) 95.8 H, Lymph % (Auto) 1.4 L, [place] % (Auto) 0.9, Eos % (Auto) 0.3, Baso % (Auto) 0.2, Absolute Neuts (auto) 8.5 H, Nucleated RBC % 0 04/19/20 07:22: Sodium 135 L, Potassium 4.9, Chloride 106, Carbon Dioxide 16.0 L, Anion Gap 13, BUN 98 H, Creatinine 5.85 H, Est GFR (MDRD) Af Amer 12 L, Est GFR (MDRD) Non-Af 10 L, BUN/Creatinine Ratio 16.8, Glucose 140 H, Calcium 7.9 L Rhythm: EKG: ECHO: Stress Test: Cardiac Cath: PCI: CT Surgery: Holter monitor: EPS: PPM: CXR: Chest CT Scan: Assessment/Plan #1 progressive swelling of the lower extremities with possibly ascites, differential diagnoses include biventricular failure especially right heart failure, liver disease, low albumin. Echocardiogram done 2017 with stress test were reported to be normal. Clinically there is no evidence of right heart failure. Echocardiogram will be performed. Ultrasound of the abdomen is recommended to assess the amount of ascites. Diureses is recommended with fluid restriction. Renal function is being followed carefully. #2 chronic left bundle branch block #3 stage IV renal insufficiency, being managed by [employer] source operations specialist #4 hypertension, diabetes and hyperlipidemia
[2020-04-19 22:06] LABS: Bedside Glucose 190 mg/dL (70-110)
[2020-04-20] VITALS (15 sets, daily range): BP systolic 106–128; BP diastolic 48–72; PULSE 50–101; RESP 15–24; TEMP 36.2–37.1; O2SAT 93–99
[2020-04-20] MEDS: Insulin Lispro 100 UNIT/ML INSULN.PEN SC ×2 (07:10→12:37)
[2020-04-20 07:26] LABS: Bedside Glucose 178 mg/dL (70-110)
--- NOTE | 2020-04-20 07:52 | PCM.PN.HOSP ---
Patient Problems: Active and Suspected Problems (Last Reviewed 05/04/18 @ 09:[address] Laron Bacon MD) Swelling of both lower extremities (Acute) Hyperkalemia (Acute) Dyspnea (Acute) Subjective: Patient seen and examined. He has no complaints this morning. He remains on lasix drip. Dose was increased yesterday. His urine output so far has only been about 825 mils yesterday and 450 mils of 5 today. He is in cumulative negative balance by 5 7 6 mL. Cardiology on board and nephrology also on board. Vitals/I&O's: Vital Signs Temp Pulse Resp BP Pulse Ox 97.2 F L 51 L 16 128/55 H 97 04/20/20 06:00 04/20/20 07:05 04/20/20 06:00 04/20/20 06:00 04/20/20 06:00 Oxygen Flow Rate (L/min) 2 Oxygen Delivery Method Nasal Cannula Weight: 253 lb 15.983 oz Body Mass Index (BMI) 36.4 Intake and Output for Last 24 Hours 04/18/20 04/19/20 04/20/20 23:59 23:59 23:59 Intake Total 358.75 / 358.75 890 / 940 150 / 150 Output Total 700 / 700 825 / 1075 450 / 450 Balance -341.25 / -341.25 65 / -135 -300 / -300 General: Alert, Oriented x3, Cooperative, No apparent distress HEENT: Atraumatic, PERRLA, EOMI, Normocephalic Oral: moist Mucosa Neck: Supple, No JVD, Negative Carotid Bruits Lungs: - - diminished breath sounds bibasally. Cardiovascular: Regular rate, Regular Rhythm, Normal S1, Normal S2, No murmurs Abdomen: Bowel Sounds Present, Soft, Non Tender, Non-Distended, No Hepato-splenomegaly, Obese Extremities: No clubbing, No cyanosis, Edema - 3+ pitting edema of both extremities Skin: No rashes, No breakdown Musculoskeletal: No Tenderness to Palpation of Joints or Extremities Lymphatic: No Cervical, Supraclavicular, or Inguinal Adenopathy Neurological: Cranial nerves II-XII grossly intact, Neuro grossly intact, Motor Exam 5/5 strength throughout Psych/Mental Status: Normal Affect, Appropriate, Alert and oriented to time, place, person, mood and affect Microbiology Past 72 Hours 04/18/20 11:50 Urine, Clean Catch Urine Culture - Final Escherichia coli 04/18/20 13:05 Mucosa - Nose SARS-CoV-2 Antigen (Rapid) - Final SARS-CoV-2 (COVID 19) Laboratory Results 04/19/20 07:22: WBC 8.9, RBC 3.80 L, Hgb 10.7 L, Hct 33.9 L, MCV 89.2, MCH 28.2, MCHC 31.6 L, RDW Std Deviation 51.3 H, RDW Coeff of Frances 15.6 H, Plt Count 140 L, MPV 12.1 H, Immature Gran % (Auto) 1.400 H, Neut % (Auto) 95.8 H, Lymph % (Auto) 1.4 L, [place] % (Auto) 0.9, Eos % (Auto) 0.3, Baso % (Auto) 0.2, Absolute Neuts (auto) 8.5 H, Absolute Lymphs (auto) 0.12 L, Nucleated RBC % 0, Platelet Estimate SLT DEC, Hypochromasia 1+ 04/19/20 07:22: Sodium 135 L, Potassium 4.9, Chloride 106, Carbon Dioxide 16.0 L, Anion Gap 13, BUN 98 H, Creatinine 5.85 H, Estim Creat Clear Calc 10.05, Est GFR (MDRD) Af Amer 12 L, Est GFR (MDRD) Non-Af 10 L, BUN/Creatinine Ratio 16.8, Glucose 140 H, Calcium 7.9 L, TSH 0.34 L 04/19/20 11:03: POC Glucose 145 H 04/19/20 15:45: POC Glucose 172 H 04/19/20 21:32: POC Glucose 190 H 04/20/20 07:06: POC Glucose 178 H Diagnostic Data Chest X-Ray 04/18/20 11:35 IMPRESSION: Pulmonary congestion/vascular crowding Mild atelectasis/scarring Electronically Signed: Earl Flynn DO at 11:48 EST Tel , Service support , Renal Ultrasound 04/18/20 15:20 IMPRESSION: Nonspecific renal parenchymal disease. Small left renal cyst. Electronically Signed: Abhijeet Moya MD at 20:36 EST , Service support , Current Medications Amlodipine Besylate (Amlodipine 10 Mg Tablet) 10 mg PO DAILY [facility] Last Admin: 04/19/20 08:09 Dose: 10 mg Documented by: Aspirin (Aspirin E.C. 81 Mg Tablet) 81 mg PO DAILY [facility] Last Admin: 04/19/20 08:09 Dose: 81 mg Documented by: Cholecalciferol (Cholecalciferol (Vit D3) 1,000 Unit (25mcg)) 5,000 unit PO DAILY [facility] Last Admin: 04/19/20 08:09 Dose: 5,000 unit Documented by: Enoxaparin Sodium (Enoxaparin 30 Mg/0.3 Ml Syringe) 30 mg SC DAILY [facility] Last Admin: 04/19/20 08:09 Dose: 30 mg Documented by: Glipizide (Glipizide 10 Mg Tablet) 10 mg PO BIDAC [facility] Last Admin: 04/19/20 15:50 Dose: 10 mg Documented by: Sodium Chloride () 250 mls @ 15 mls/hr IV .[id number] PRN PRN Reason: Saline Flush Last Infusion: 04/18/20 16:52 Dose: 0 mls/hr Documented by: Sodium Chloride () 250 mls @ 15 mls/hr IV .[id number] PRN PRN Reason: Additional IVPB Infusion Furosemide 500 mg/ N/A 50 mls @ 2 mls/hr CONT INF .Q25H [facility] Last Admin: 04/19/20 15:41 Dose: 20 mg/hr, 2 mls/hr Documented by: Insulin Human Lispro (Insulin Lispro 100 Unit/Ml Insuln.Pen) 0 unit SC ACHS [facility]; Protocol Last Admin: 04/20/20 07:10 Dose: 1 units Documented by: Nitroglycerin (Nitroglycerin (Inpatient Use) 0.4 Mg Tab.Subl) 0.4 mg SUBLINGUAL Q5M PRN PRN Reason: CARDIAC/CHEST PAIN Ondansetron HCl (Ondansetron 4 Mg/2 Ml Vial) 4 mg IV Q8H PRN PRN PRN Reason: NAUSEA/VOMITING Sodium Chloride (0.9% Saline Lock 10 Ml Syringe) 2 - 6 ml IV UD PRN PRN Reason: Pediatric Saline Flush STROKE Vital Signs/Narrative: Vital Signs Temp Pulse Resp BP Pulse Ox 04/20/20 07:05 51 L 04/20/20 06:00 97.2 F L 59 L 16 128/55 H 97 Medical Necessity - Tobacco Use Smoking Status: Never smoker Tobacco Use: Non-smoker Assessment/Plan All Active Problems (Last Reviewed 05/04/18 @ 09:[address] Laron Bacon MD) Swelling of both lower extremities (Acute) Hyperkalemia (Acute) Dyspnea (Acute) # Acute heart failure with unknown EF BNP is ~ 300 CXR shows pulmonary vascular congestion. No 2D echo on file. on IV lasix drip o/a of severe KITTY on CKD 2D echo still pending covid antigen was positive, but PCR was negative. troponins x 3 are negative. cardiology on board fluid restriction to 1500cc daily. monitor intake and output #KITTY on CKD 3 Cr up to 6.47 today. nephrology feels it is due to cardiorenal syndrome. renal USG showed nonspecific renal parenchymal disese and small left renal cyst. . discussed with nephrology; patient';s urine output is also not very impressive. consult general surgery for placement of dialysis catheter, so patient gets dialysis today. #UTI: UA showed 3+ bacteria. urine cultured E coli. Start on IV ceftriaxone #Hyperkalemia resolved #Non anion gap metabolic acidosis bicarb is still 16 today. Likely due to worsening kidney disease. #Diabetes mellitus: ISS. Accuchecks ACHS and glipizide 10 mg twice daily. Also on lantus #Hypertension: Hold lisinopril on account of KITTY on CKD and hyperkalemia. IV hydralazine as needed. BP has been well controlled. DVT prophylaxis: Lovenox renally dosed CODE STATUS: Full code Inpatient E&M: 16612 Subs Hosp L3
[2020-04-20 07:58] LABS: Absolute Lymphocyte Count 0.78 X10^3/uL (0.83-4.51); Absolute Neutrophil Count 10.9 X10^3/uL (2.0-7.7); Basophil# 0.03 X10^3/uL; Basophil% 0.2 % (0-1); Eosinophil# 0.06 X10^3/uL; Eosinophils% 0.5 % (0-5); Hematocrit 33.4 % (40-54); Hemoglobin 10.4 g/dL (13.0-16.5); Lymphocyte # 0.78 X10^3/ul (4.0); Lymphocyte % 6.1 % (19-41); Mean Corp Hgb Conc 31.1 g/dL (32-36); Mean Corpuscular Hgb 28.1 pg (27.0-32.0); Mean Corpuscular Volume 90.3 fL (80-94); Mean Platelet Vol. 12.4 fl (6.2-12.0); Monocyte# 0.92 X10^3/uL; Monocyte% 7.2 % (0-10); NRBC Flagged by Analyzer 0 % (0-5); Neutrophil # 10.93 X10^3/uL (2.7-7.7); Neutrophil % 85.1 % (47-70); Platelet Count 129 K/mm3 (150-450); RBC Distribution Width SD 53.1 fl (35.1-43.9); White Blood Count 12.8 K/mm3 (4.4-11.0)
[2020-04-20 08:24] LABS: Anion Gap 10 (5-15); BUN 105 mg/dL (7-18); BUN/Creat Ratio 16.2 RATIO (10-20); Chloride 106 mmol/L (98-107); Creatinine, Serum 6.49 mg/dL (0.70-1.30); EST Glomerular Filtration Rate 9 mL/min (>60); Est Glom Filt Rate - Afr Amer 11 mL/min (>60); Estimated Creatinine Clearance 9.06 ml/min; Glucose 186 mg/dL (74-106); Sodium Level 132 mmol/L (136-145)
[2020-04-20] MEDS: Enoxaparin 30 MG/0.3 ML Syringe SC (08:41)
[2020-04-20] MEDS: amLODIPine 10 MG Tablet PO (08:41)
[2020-04-20] MEDS: glipiZIDE 10 MG Tablet PO (08:41)
[2020-04-20] MEDS: Aspirin E.C. 81 MG Tablet PO (08:41)
--- NOTE | 2020-04-20 09:20 | PCM.CONS.GEN ---
Reason for Consult Date of Consultation: 04/20/20 History of Present Illness: The patient is a 84 year old M actually presented due to swelling in his arms and legs to the ER. Patient was found to be in acute on chronic kidney disease with a creatinine of 5 which did increase to 6 today. Request placed for temporary dialysis catheter. Patient was initially positive for the Covid antigen however patient's PCR for Covid was negative. Patient is currently getting Lasix IV. Past Medical History Past Medical History (Chronic Problems): Chronic Problems (Last Reviewed 05/04/18 @ 09:[address] 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 Laron Bacon MD) High risk medication use (Chronic) Z79.899 HLD (hyperlipidemia) (Chronic) E78.5 HTN (hypertension) (Chronic) I10 Chronic kidney disease, stage III (moderate) (Chronic) N18.3 Left bundle-branch block (Chronic) I44.7 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 (Chronic) I44.1 Abnormal electrocardiogram (Chronic) R94.31 Allergies pioglitazone [From Actos] Allergy (Verified 05/18/19 09:24) fatigue simvastatin [From Zocor] Allergy (Verified 05/18/19 09:24) myalgia sitagliptin [From Januvia] Allergy (Verified 05/18/19 09:24) unknown Home Medications: Ambulatory Orders Medication Instructions Recorded amlodipine 10 mg tablet 10 mg PO QDAY 05/12/17 aspirin 81 mg tablet,delayed 81 mg PO QDAY 05/12/17 release lisinopril 40 mg tablet 40 mg PO QDAY 05/12/17 glipizide 10 mg tablet 10 mg PO BID tab 05/18/19 Insulin Glargine [Lantus (BKC)] 30 units SC DINNER 04/18/20 Metoprolol Tartrate 12.5 mg PO BID 04/18/20 Surgical History: Surgical History (Last Reviewed 05/04/18 @ 09:[address] Laron Bacon MD) History of appendectomy Z98.890, Z90.49 History of inguinal hernia repair Z98.890, Z87.19 1970s Psychiatric History: No pertinent psych hx Lives: Spouse/ Significant Other Smoking Status: Never smoker Tobacco Use: Non-smoker Alcohol: None Drugs: None - *Family History Maternal Family History: Family History (Last Reviewed 05/04/18 @ 09:[address] Laron Bacon MD) Mother Hypertension Father Diabetes Review of Systems Constitutional: Denies: Fever Eyes: Denies: Blurred vision HEENT: Denies: Difficulty Swallowing Cardiovascular: Denies: Chest Pain Respiratory: Denies: Shortness of Breath Gastrointestinal: Denies: Abdominal Pain, Nausea, Vomiting Musculoskeletal: Reports: - - Swelling of extremities Skin: Denies: Rash Neurological: Denies: Slurred speech Psychiatric: Denies: Depression Hematologic/ Lymphatic: Denies: Easy Bleeding Patient Problems: Active and Suspected Problems (Last Reviewed 05/04/18 @ 09:[address] Laron Bacon MD) Swelling of both lower extremities (Acute) Hyperkalemia (Acute) Dyspnea (Acute) - Physical Exam Vitals/I&O's: Vital Signs Temp Pulse Resp BP Pulse Ox 97.4 F L 57 L 16 117/50 L 97 04/20/20 08:30 04/20/20 08:30 04/20/20 08:30 04/20/20 08:30 04/20/20 08:30 Oxygen Flow Rate (L/min) 2 Oxygen Delivery Method Nasal Cannula Weight: 253 lb 15.983 oz Body Mass Index (BMI) 36.4 Intake and Output for Last 24 Hours 04/18/20 04/19/20 04/20/20 23:59 23:59 23:59 Intake Total 358.75 / 358.75 890 / 940 150 / 150 Output Total 700 / 700 825 / 1075 450 / 450 Balance -341.25 / -341.25 65 / -135 -300 / -300 General: Alert, Oriented x3, Cooperative, No apparent distress HEENT: Atraumatic Lungs: Normal air movement Cardiovascular: Regular rate Abdomen: Soft, Non Tender, Non-Distended Extremities: Edema Neurological: Cranial nerves II-XII grossly intact Psych/Mental Status: Normal Affect Microbiology Past 72 Hours 04/18/20 11:50 Urine, Clean Catch Urine Culture - Final Escherichia coli 04/18/20 13:05 Mucosa - Nose SARS-CoV-2 Antigen (Rapid) - Final SARS-CoV-2 (COVID 19) Laboratory Results 04/19/20 07:22: Platelet Estimate SLT DEC, Hypochromasia 1+ 04/19/20 11:03: POC Glucose 145 H 04/19/20 15:45: POC Glucose 172 H 04/19/20 21:32: POC Glucose 190 H 04/20/20 07:06: POC Glucose 178 H 04/20/20 07:46: WBC 12.8 H, RBC 3.70 L, Hgb 10.4 L, Hct 33.4 L, MCV 90.3, MCH 28.1, MCHC 31.1 L, RDW Std Deviation 53.1 H, RDW Coeff of Frances 16.0 H, Plt Count 129 L, MPV 12.4 H, Immature Gran % (Auto) 0.900, Neut % (Auto) 85.1 H, Lymph % (Auto) 6.1 L, [place] % (Auto) 7.2, Eos % (Auto) 0.5, Baso % (Auto) 0.2, Absolute Neuts (auto) 10.9 H, Absolute Lymphs (auto) 0.78 L, Nucleated RBC % 0 04/20/20 07:46: Sodium 132 L, Potassium 5.0, Chloride 106, Carbon Dioxide 16.0 L, Anion Gap 10, BUN 105 H*, Creatinine 6.49 H, Estim Creat Clear Calc 9.06, Est GFR (MDRD) Af Amer 11 L, Est GFR (MDRD) Non-Af 9 L, BUN/Creatinine Ratio 16.2, Glucose 186 H, Calcium 8.0 L Current Medications Amlodipine Besylate (Amlodipine 10 Mg Tablet) 10 mg PO DAILY [facility] Last Admin: 04/20/20 08:41 Dose: 10 mg Documented by: Aspirin (Aspirin E.C. 81 Mg Tablet) 81 mg PO DAILY [facility] Last Admin: 04/20/20 08:41 Dose: 81 mg Documented by: Cholecalciferol (Cholecalciferol (Vit D3) 1,000 Unit (25mcg)) 5,000 unit PO DAILY [facility] Last Admin: 04/20/20 08:41 Dose: 5,000 unit Documented by: Glipizide (Glipizide 10 Mg Tablet) 10 mg PO BIDAC [facility] Last Admin: 04/20/20 08:41 Dose: 10 mg Documented by: Heparin Sodium (Porcine) (Heparin 10,000 Units/10 Ml Vial) 0 units IV X1 ONE Stop: 04/20/20 09:21 Sodium Chloride () 250 mls @ 15 mls/hr IV .[id number] PRN PRN Reason: Saline Flush Last Infusion: 04/18/20 16:52 Dose: 0 mls/hr Documented by: Sodium Chloride () 250 mls @ 15 mls/hr IV .[id number] PRN PRN Reason: Additional IVPB Infusion Furosemide 500 mg/ N/A 50 mls @ 2 mls/hr CONT INF .Q25H [facility] Last Admin: 04/19/20 15:41 Dose: 20 mg/hr, 2 mls/hr Documented by: Ceftriaxone Sodium (Rocephin) 1 gm in 50 mls @ 100 mls/hr IV Q24 [facility] Insulin Human Lispro (Insulin Lispro 100 Unit/Ml Insuln.Pen) 0 unit SC ACHS [facility]; Protocol Last Admin: 04/20/20 07:10 Dose: 1 units Documented by: Nitroglycerin (Nitroglycerin (Inpatient Use) 0.4 Mg Tab.Subl) 0.4 mg SUBLINGUAL Q5M PRN PRN Reason: CARDIAC/CHEST PAIN Ondansetron HCl (Ondansetron 4 Mg/2 Ml Vial) 4 mg IV Q8H PRN PRN PRN Reason: NAUSEA/VOMITING Sodium Chloride (0.9% Saline Lock 10 Ml Syringe) 2 - 6 ml IV UD PRN PRN Reason: Pediatric Saline Flush Sodium Chloride (0.9 % Nacl (Sterile) Posiflush 10 Ml) 30 ml IV X1 ONE Stop: 04/20/20 09:31 Assessment/Plan All Active Problems (Last Reviewed 05/04/18 @ 09:[address] Laron Bacon MD) Swelling of both lower extremities (Acute) Hyperkalemia (Acute) Dyspnea (Acute) 84-year-old male with acute on chronic kidney disease request for dialysis catheter Discussed with patient who is agreeable for placement of a temporary dialysis catheter. Discussed risk and benefits with patient and he elected to proceed. Patient also understands that he will need to get a tunneled dialysis catheter placed prior to discharge and is also agreeable currently. Patient no further questions this time. Tootie Franklin M.D. Pager: [phone] [facility] [address] [place] [address] [address] [place] [address] Office: [phone] Procedure Criteria Procedure Type: Elective COVID Risk Discussion: The surgeon/proceduralist and patient have discussed in detail the risk of exposure to and/or potential harm posed by the COVID-19 virus with having a surgery/procedure at this time versus the risk of delaying the surgery/procedure. It is not possible to know either the risk of delaying the surgery or procedure or chance of getting an infection with perfect accuracy, but a joint decision was made between the patient and the surgeon/proceduralist to proceed at this time with the scheduled surgery/procedure as indicated on the consent form. Inpatient E&M: 90695 Subs Hosp L2
[2020-04-20] MEDS: Heparin 10,000 UNITS/10 ML Vial IV ×2 (10:00→17:00)
[2020-04-20] MEDS: 0.9 % NaCl (Sterile) Posiflush 10 mL 30 ML IV (10:00)
--- NOTE | 2020-04-20 10:35 | CT_ITS ---
STUDY: CT CHEST WITHOUT CONTRAST REASON FOR EXAM: Male, 84 years old. ASSESS FOR ASCITES VOLUME/SOB/ASSESS PERICARDIAL THICKNESS. Hx of appendectomy, inguinal hernia repair, HLD, HTN and CKD stage 3. RADIATION DOSAGE (If Supplied By Facility): CTDIvol = ( 23.84 ) mGy, DLP = ( 2585.36 ) mGycm TECHNIQUE: Transaxial imaging was performed without the administration of intravenous contrast material. Individualized dose optimization techniques were used for this CT. COMPARISON: None. FINDINGS: Peripheral chronic interstitial markings are present predominantly within the right lung. Focal area of scarring within the right upper lobe anterior lateral segment abutting the pleura is noted. Similar appearance is noted within the right lower lobe abutting the pleura with likely a chronic appearing nodule measuring 7 mm abutting the fissure surface. There is no demonstrated pleural abnormality. There are calcifications of the coronary arteries. Scattered subcentimeter lymph nodes are noted within the paratracheal and subcarinal region none of which are pathologically enlarged. Normal hilar regions. Normal unenhanced pulmonary arteries. Normal aorta arch and descending thoracic aorta. There are multi-level degenerative changes of the thoracic spine. There is no demonstrated abnormality of the visualized upper abdomen. CT/Chest without Contrast IMPRESSION: 1. Chronic appearing right greater than left peripheral interstitial markings with peripheral areas of likely scarring changes with likely right main fissure 7 mm chronic appearing nodule adjacent to the pleural based scarring is noted. Recommend follow-up imaging in 6-12 months to document stability. Otherwise no evidence of acute focal airspace disease or acute process. Electronically Signed: [place] DO at 11:51 EST , Service support ,
--- NOTE | 2020-04-20 10:35 | CT_ITS ---
STUDY: CT ABDOMEN AND PELVIS WITHOUT CONTRAST REASON FOR EXAM: Male, 84 years old. ASSESS FOR ASCITES VOLUME/SOB/ASSESS PERICARDIAL THICKNESS. Hx of appendectomy, inguinal hernia repair, HLD, HTN and CKD stage 3. Additional axial images included through scrotum RADIATION DOSAGE (If Supplied By Facility): CTDIvol = ( 23.84 ) mGy, DLP = ( 2585.36 ) mGycm TECHNIQUE: Transaxial images were obtained from the dome of the diaphragm to the symphysis pubis without oral contrast, and without intravenous contrast. Sagittal and coronal images were reconstructed. Individualized dose optimization techniques were used for this CT. COMPARISON: None. FINDINGS: The visualized lung bases are unremarkable. The visualized portions of the heart are within normal limits. No evidence of pericardial effusion. Normal liver. Normal gallbladder and extrahepatic biliary system. Normal spleen. Normal pancreas. Normal bilateral adrenal glands. Chronic appearing right renal perinephric stranding is present. Left kidney demonstrates mild hydronephrosis and dilatation of the ureter with noted likely worsened perinephric stranding. Within the cortex of the left kidney is a ill-defined hypodensity laterally. Normal visualized stomach. Normal small intestine. Normal colon. There is non-visualization of the appendix. Normal abdominal aorta. Normal inferior vena cava. Normal retroperitoneum. There is contracted with CHAMORRO catheter in place. There is a right-sided inguinal hernia containing adipose tissue. There are diffuse degenerative changes of the visualized lumbar spine. CT/Abdomen/Pelvis without Cont IMPRESSION: 1. Left renal mild hydronephrosis and ureteral dilatation with perinephric stranding concerning for underlying pyelonephritis in the appropriate clinical setting. No definitive ureteral stone is evident. There is compounding chronic bilateral echogenic stranding. Ill-defined hypodensity of the left kidney is also noted likely consistent with cysts though too small to fully characterize. 2. No evidence of pericardial effusion or large intra-abdominal ascites. Electronically Signed: Javan Park DO at 11:46 EST , Service support ,
--- NOTE | 2020-04-20 10:35 | RAD_ITS ---
STUDY: X-RAY CHEST REASON FOR EXAM: Male, 84 years old. Dialysis catheter placement confirmation. TECHNIQUE: Single frontal view of the chest. COMPARISON: 04/18/2020 FINDINGS: Insertion of right internal jugular dialysis catheter with tip projected over the lower SVC. No complications. Low-volume inspiration with vascular crowding and atelectasis, relatively unchanged. There is no demonstrated pleural abnormality. Stable cardiomegaly. Normal mediastinum and tanya. Normal visualized pulmonary arteries. Normal visualized aortic arch and descending thoracic aorta. Normal visualized thoracic spine. Normal visualized ribs, clavicles, and shoulders. There is no demonstrated abnormality of the visualized soft tissue structures of the upper abdomen. RAD/Chest 1 View (Portable) IMPRESSION: Cardiomegaly with low volume inspiration is unchanged. Insertion of dialysis catheter with no complications. Electronically Signed: Ronnell Srivastava MD at 12:11 EST , Service support ,
--- NOTE | 2020-04-20 10:51 | PCM.OPRPT ---
Report of Operation Date of Procedure: 04/20/20 Pre-Operative Diagnosis: Acute on chronic kidney disease, need for dialysis catheter Post-Operative Diagnosis: Same Surgery/Procedure Performed:: Placement of right IJ temporary dialysis catheter. Use of the ultrasound Type of Anesthesia:: Local Estimated Blood Loss (mL): Normal Description of Procedure: Procedure: A time-out was completed to verify correct patient, indication, medication allergies, procedure, coagulation studies, informed consent signed, and equipment needed. The patient was placed in the supine position for a central line placement to the right IJ vein. The patients right neck was prepped using chlorhexidine and a full body sterile drape was applied. 1% lidocaine was used to anesthetize the surrounding skin. A Mahurkar Elite 12 [place] x16 cm (ref [id number] lot [id number]) introduced into the internal jugular vein using the modified Seldinger technique with the assistance of ultrasound. The site was dilated up twice in a stepwise fashion. The catheter was threaded smoothly over the guidewire, the guidewire was removed easily, nonpulsatile blood returned. All ports were aspirated of air and flushed with sterile saline Then flushed with 1:10,000 heparin 1.3 mL to each port. The catheter was sutured in place and covered with an occlusive dressing impregnated with chlorhexidine. Patient tolerated procedure well. Post procedure chest x-ray ordered. Chest x-ray showed good positioning of the catheter no pneumothorax Complications none Grafts/Implants Used: Mahurkar Elite 12 [place] x16 cm (ref [id number] lot [id number]) - Complications none
--- NOTE | 2020-04-20 10:57 | PCM.PN.CARD ---
Subjectve: Continuous deteriorations of renal function. Dialysis catheter inserted from the IJ today. Patient is ready for dialysis. Patient is known to have marked swelling of the lower extremities and possible ascites over 30 days time. Etiologies of this is unknown. Echocardiogram still pending Objective: Vital Signs Temp Pulse Resp BP Pulse Ox 97.4 F L 57 L 16 117/50 L 97 04/20/20 08:30 04/20/20 08:30 04/20/20 08:30 04/20/20 08:30 04/20/20 08:30 Oxygen Flow Rate (L/min) 2 Oxygen Delivery Method Nasal Cannula Weight: 253 lb 15.983 oz Body Mass Index (BMI) 36.4 Intake and Output for Last 24 Hours 04/18/20 04/19/20 04/20/20 23:59 23:59 23:59 Intake Total 358.75 / 358.75 890 / 940 150 / 150 Output Total 700 / 700 825 / 1075 450 / 450 Balance -341.25 / -341.25 65 / -135 -300 / -300 General: Awake, Alert, Oriented x 3, No Acute Distress Neck: Supple Lungs: Clear to auscultation Cardiovascular: Regular Rhythm, No Murmurs Abdomen: Distended, Ascites Extremities: Bilaterel Edema +4 Neurological: No Focal Motor or Sensory Deficit 04/20/20 07:46: WBC 12.8 H, RBC 3.70 L, Hgb 10.4 L, Hct 33.4 L, MCV 90.3, MCH 28.1, MCHC 31.1 L, Plt Count 129 L, MPV 12.4 H, Immature Gran % (Auto) 0.900, Neut % (Auto) 85.1 H, Lymph % (Auto) 6.1 L, [place] % (Auto) 7.2, Eos % (Auto) 0.5, Baso % (Auto) 0.2, Absolute Neuts (auto) 10.9 H, Nucleated RBC % 0 04/20/20 07:46: Sodium 132 L, Potassium 5.0, Chloride 106, Carbon Dioxide 16.0 L, Anion Gap 10, BUN 105 H*, Creatinine 6.49 H, Est GFR (MDRD) Af Amer 11 L, Est GFR (MDRD) Non-Af 9 L, BUN/Creatinine Ratio 16.2, Glucose 186 H, Calcium 8.0 L Rhythm: EKG: ECHO: Stress Test: Cardiac Cath: PCI: CT Surgery: Holter monitor: EPS: PPM: CXR: Chest CT Scan: Medical Necessity - Tobacco Use Smoking Status: Never smoker Tobacco Use: Non-smoker Assessment/Plan #1 progressive swelling of the lower extremities with possibly ascites, differential diagnoses include biventricular failure especially right heart failure, valvular heart disease, constrictive physiology, liver disease, low albumin. Echocardiogram done 2016 with stress test were reported to be normal. Clinically there is no evidence of right heart failure. Echocardiogram will be performed. CT of the chest without contrast and abdomen will be performed to assess thickness of the pericardium and intra-abdominal pathology and to assess ascites #2 chronic left bundle branch block #3 stage V renal insufficiency, being managed by lodging facilities attendant, for dialysis today #4 hypertension, diabetes and hyperlipidemia
--- NOTE | 2020-04-20 11:08 | ECHOD_ITS ---
Version 2 Reason For Study: HEART FAILURE Procedure This was a 2D Doppler, Color Flow transthoracic echocardiogram. Exam performed portable in patient room. Left Ventricle Normal LV size. Left ventricular systolic function is lower limits of normal. The estimated ejection fraction is 53 %. Stage 2 diastolic dysfunction. No regional wall motion abnormalities noted. Right Ventricle Normal RV size. Normal systolic function. Atria The left atrium is moderately enlarged. Normal right atrium. Mitral Valve Normal mitral valve. Tricuspid Valve Normal tricuspid valve. Unable to estimate RV systolic pressure due to inadequate jet, pulmonary artery pressure probably normal. Aortic Valve Trisinus/trileaflet aortic valve. Mild focal aortic valve calcification. Pulmonic Valve Normal pulmonic valve. Great Vessels Normal aortic root. The pulmonary artery is normal size. Normal inferior vena cava. Pericardium/Pleural No pericardial effusion. MMode/2D Measurements & Calculations LVIDd: 5.5 cm IVSd: 0.98 cm Ao root diam: 2.7 cm LVIDs: 3.9 cm LVPWd: 1.1 cm FS: 29.3 % LAV(MOD-bp): 78.9 ml LA A4 area: 23.7 cm2 LA dimension(2D): 3.9 cm LAV(MOD-bp) Indexed: 34.0 ml/m2 LAV(MOD-sp2): 77.6 ml LAV(MOD-sp4): 77.6 ml Doppler Measurements & Calculations MV E max dominique: 118.7 cm/sec Ao V2 max: 173.0 cm/sec LV V1 max: 103.2 cm/sec MV A max dominique: 62.3 cm/sec Ao max P.0 mmHg LV V1 max P.3 mmHg MV E/A: 1.9 PA V2 max: 124.0 cm/sec Interpretation Summary Normal LV size. Left ventricular systolic function is lower limits of normal. The estimated ejection fraction is 53 %. The left atrium is moderately enlarged. Stage 2 diastolic dysfunction. Unable to estimate RV systolic pressure due to inadequate jet, pulmonary artery pressure probably normal. Compared to previous study, the left ventricular systolic function is the same.. Ordering Physician: Earl Stahl Referring Physician: Umang Yan Performed By: Silvia Hernandez, SKY, RVT
[2020-04-20] MEDS: Ceftriaxone 1 GM/50 ML BAG IV (12:51)
[2020-04-20 13:11] LABS: Bedside Glucose 161 mg/dL (70-110)
--- NOTE | 2020-04-20 15:12 | PCM.PN.REN ---
Patient Problems: Active and Suspected Problems (Last Reviewed 05/04/18 @ 09:[address] Laron Bacon MD) Swelling of both lower extremities (Acute) Hyperkalemia (Acute) Dyspnea (Acute) Subjective: patient is complaining of more body tremor and no appetite No worsening breathing. No N/V Still with legs edema - Physical Exam Vitals/I&O's: Vital Signs Temp Pulse Resp BP Pulse Ox 97.4 F L 57 L 16 117/50 L 97 04/20/20 08:30 04/20/20 08:30 04/20/20 08:30 04/20/20 08:30 04/20/20 08:30 Oxygen Flow Rate (L/min) 2 Oxygen Delivery Method Nasal Cannula Weight: 115.212 kg Body Mass Index (BMI) 36.4 Intake and Output for Last 24 Hours 04/18/20 04/19/20 04/20/20 23:59 23:59 23:59 Intake Total 358.75 / 358.75 890 / 940 390 / 390 Output Total 700 / 700 825 / 1075 550 / 550 Balance -341.25 / -341.25 65 / -135 -160 / -160 General: Alert, Oriented x3 HEENT: Atraumatic Oral: Moist Mucosa Neck: Supple, No JVD Lungs: Normal air movement, - - decreased BS over lungs bases Cardiovascular: Regular rate, Regular Rhythm, Normal S1, Normal S2 Abdomen: Bowel Sounds Present, Soft, Non Tender, Non-Distended Extremities: No clubbing, No cyanosis, Edema - +2 edema Skin: No rashes Musculoskeletal: No Tenderness to Palpation of Joints or Extremities Lymphatic: Cervical Adenopathy Neurological: Cranial nerves II-XII grossly intact, Neuro grossly intact Psych/Mental Status: Appropriate Microbiology Past 72 Hours 04/18/20 11:50 Urine, Clean Catch Urine Culture - Final Escherichia coli 04/18/20 13:05 Mucosa - Nose SARS-CoV-2 Antigen (Rapid) - Final SARS-CoV-2 (COVID 19) Laboratory Results 04/19/20 15:45: POC Glucose 172 H 04/19/20 21:32: POC Glucose 190 H 04/20/20 07:06: POC Glucose 178 H 04/20/20 07:46: WBC 12.8 H, RBC 3.70 L, Hgb 10.4 L, Hct 33.4 L, MCV 90.3, MCH 28.1, MCHC 31.1 L, RDW Std Deviation 53.1 H, RDW Coeff of Frances 16.0 H, Plt Count 129 L, MPV 12.4 H, Immature Gran % (Auto) 0.900, Neut % (Auto) 85.1 H, Lymph % (Auto) 6.1 L, [place] % (Auto) 7.2, Eos % (Auto) 0.5, Baso % (Auto) 0.2, Absolute Neuts (auto) 10.9 H, Absolute Lymphs (auto) 0.78 L, Nucleated RBC % 0 04/20/20 07:46: Sodium 132 L, Potassium 5.0, Chloride 106, Carbon Dioxide 16.0 L, Anion Gap 10, BUN 105 H*, Creatinine 6.49 H, Estim Creat Clear Calc 9.06, Est GFR (MDRD) Af Amer 11 L, Est GFR (MDRD) Non-Af 9 L, BUN/Creatinine Ratio 16.2, Glucose 186 H, Calcium 8.0 L 04/20/20 11:55: POC Glucose 161 H Current Medications Amlodipine Besylate (Amlodipine 10 Mg Tablet) 10 mg PO DAILY [facility] Last Admin: 04/20/20 08:41 Dose: 10 mg Documented by: Aspirin (Aspirin E.C. 81 Mg Tablet) 81 mg PO DAILY [facility] Last Admin: 04/20/20 08:41 Dose: 81 mg Documented by: Cholecalciferol (Cholecalciferol (Vit D3) 1,000 Unit (25mcg)) 5,000 unit PO DAILY [facility] Last Admin: 04/20/20 08:41 Dose: 5,000 unit Documented by: Glipizide (Glipizide 10 Mg Tablet) 10 mg PO BIDAC [facility] Last Admin: 04/20/20 08:41 Dose: 10 mg Documented by: Sodium Chloride () 250 mls @ 15 mls/hr IV .[id number] PRN PRN Reason: Saline Flush Last Infusion: 04/18/20 16:52 Dose: 0 mls/hr Documented by: Sodium Chloride () 250 mls @ 15 mls/hr IV .[id number] PRN PRN Reason: Additional IVPB Infusion Furosemide 500 mg/ N/A 50 mls @ 2 mls/hr CONT INF .Q25H [facility] Last Admin: 04/19/20 15:41 Dose: 20 mg/hr, 2 mls/hr Documented by: Ceftriaxone Sodium (Rocephin) 1 gm in 50 mls @ 100 mls/hr IV Q24 [facility] Last Admin: 04/20/20 12:51 Dose: 100 mls/hr Documented by: Insulin Human Lispro (Insulin Lispro 100 Unit/Ml Insuln.Pen) 0 unit SC ACHS [facility]; Protocol Last Admin: 04/20/20 12:37 Dose: 1 units Documented by: Nitroglycerin (Nitroglycerin (Inpatient Use) 0.4 Mg Tab.Subl) 0.4 mg SUBLINGUAL Q5M PRN PRN Reason: CARDIAC/CHEST PAIN Ondansetron HCl (Ondansetron 4 Mg/2 Ml Vial) 4 mg IV Q8H PRN PRN PRN Reason: NAUSEA/VOMITING Sodium Chloride (0.9% Saline Lock 10 Ml Syringe) 2 - 6 ml IV UD PRN PRN Reason: Pediatric Saline Flush Medical Necessity - Tobacco Use Smoking Status: Never smoker Tobacco Use: Non-smoker Assessment/Plan All Active Problems (Last Reviewed 05/04/18 @ 09:[address] Laron Bacon MD) Swelling of both lower extremities (Acute) Hyperkalemia (Acute) Dyspnea (Acute) 1. Acute kidney injury on chronic kidney disease. The pt has CK stage 3 on history. Possible CKD from diabetic nephropathy. However, there is no recent SCr for comparison KITTY is likely due to cardiorenal syndrome.renal US showed no hydro UA showed 1+ protein but no RBC. UPCR is 790 mg/g Patient is not producing enough urine despite being on 20 mg/hour lasix drip Cr is ip up > 6 mg/dl and BUN > 100 Patient seems having uremia manifestation with body tremor and poor appetite [employer] is indicated. temp HD access placed today 1st HD session is arrange for today . BQ 250 DQ 500 UF 2L d/c lasix drip 2. Hyperkalemia. Improved with diuresis Hyperkalemia is due to KITTY and prior use of ACEI. Agree with holding lisinopril. should stabilized with HD Recheck K in am. Renal diet. 3. Metabolic acidosis. Serum HCO3 is 16.Likely from KITTY Should improve with HD 4. Volume overload. May be due to KITTY/CKD and also CHf, would check echocardiogram as well. HD session with with 2L D/w Dr. Orozco. Renal team will continue to follow. Please call if any question at [phone] Jamal Mcpherson MD
[2020-04-20 15:51] LABS: Bedside Glucose 135 mg/dL (70-110)
--- NOTE | 2020-04-20 17:07 | DIALYSIS ---
first hemodialysis tx completed x 2 hrs. Access via right neck temp HD cath. net fluid removal 2000ml. Pt laya well. See HD flowsheet on chart.
[2020-04-20 23:01] LABS: Bedside Glucose 138 mg/dL (70-110)
[2020-04-21] VITALS (12 sets, daily range): BP systolic 107–129; BP diastolic 48–69; PULSE 61–79; RESP 16–18; TEMP 36.4–36.9; O2SAT 95–97
[2020-04-21 05:03] LABS: Absolute Lymphocyte Count 0.59 X10^3/uL (0.83-4.51); Basophil# 0.03 X10^3/uL; Basophil% 0.2 % (0-1); Eosinophil# 0.02 X10^3/uL; Eosinophils% 0.1 % (0-5); Hematocrit 33.5 % (40-54); Hemoglobin 10.8 g/dL (13.0-16.5); Lymphocyte # 0.59 X10^3/ul (4.0); Lymphocyte % 3.1 % (19-41); Mean Corp Hgb Conc 32.2 g/dL (32-36); Mean Corpuscular Hgb 28.1 pg (27.0-32.0); Mean Platelet Vol. 12.2 fl (6.2-12.0); Monocyte# 1.06 X10^3/uL; Monocyte% 5.6 % (0-10); NRBC Flagged by Analyzer 0 % (0-5); Neutrophil # 17.02 X10^3/uL (2.7-7.7); POSITIVE DIFFERENTIAL YES; Platelet Count 124 K/mm3 (150-450); Red Blood Count 3.85 M/mm3 (4.6-6.2); White Blood Count 18.9 K/mm3 (4.4-11.0)
[2020-04-21 05:13] LABS: Differential Indicated SCAN CRITERIA MET
[2020-04-21 05:19] LABS: Anion Gap 11 (5-15); BUN 89 mg/dL (7-18); BUN/Creat Ratio 15.5 RATIO (10-20); Calcium,Total 7.9 mg/dL (8.5-10.1); Chloride 101 mmol/L (98-107); Creatinine, Serum 5.74 mg/dL (0.70-1.30); EST Glomerular Filtration Rate 10 mL/min (>60); Est Glom Filt Rate - Afr Amer 12 mL/min (>60); Estimated Creatinine Clearance 10.24 ml/min; Glucose 232 mg/dL (74-106); Potassium 4.9 mmol/L (3.5-5.1); Sodium Level 131 mmol/L (136-145)
[2020-04-21] MEDS: Insulin Lispro 100 UNIT/ML INSULN.PEN SC ×3 (06:37→21:33)
[2020-04-21 06:55] LABS: Bedside Glucose 205 mg/dL (70-110)
[2020-04-21] MEDS: glipiZIDE 10 MG Tablet PO ×2 (07:46→17:57)
[2020-04-21 07:51] LABS: T4 Free Direct 0.98 ng/dL (0.76-1.46)
--- NOTE | 2020-04-21 07:52 | PN_ITS ---
Patient Problems: Active and Suspected Problems (Last Reviewed 05/04/18 @ 09:[address] Laron Bacon MD) Swelling of both lower extremities (Acute) Hyperkalemia (Acute) Dyspnea (Acute) Subjective: Patient seen and examined. He has no complaints today. He had dialysis catheter inserted and he had dialysis yesterday with removal of 4 L of fluid. He has no other complaints today. He is on 2 L of oxygen. Creatinine is down to 5.74 today. Sodium is 131. Is up to 18.9. Vitals/I&O's: Vital Signs Temp Pulse Resp BP Pulse Ox 98.4 F 76 16 107/48 L 95 04/21/20 02:46 04/21/20 06:59 04/21/20 02:46 04/21/20 02:46 04/21/20 02:46 Oxygen Flow Rate (L/min) 2 Oxygen Delivery Method Nasal Cannula Weight: 253 lb 15.983 oz Body Mass Index (BMI) 36.4 Intake and Output for Last 24 Hours 04/19/20 04/20/20 04/21/20 23:59 23:59 23:59 Intake Total 890 / 940 730 / 730 Output Total 825 / 1075 4650 / 4700 50 / 50 Balance 65 / -135 -3920 / -3970 -50 / -50 General: Alert, Oriented x3, Cooperative, No apparent distress HEENT: Atraumatic, PERRLA, EOMI, Normocephalic Oral: moist Mucosa Neck: Supple, No JVD, Negative Carotid Bruits Lungs: - - diminished breath sounds bibasally. Cardiovascular: Regular rate, Regular Rhythm, Normal S1, Normal S2, No murmurs Abdomen: Bowel Sounds Present, Soft, Non Tender, Non-Distended, No Hepato- splenomegaly, Obese Extremities: No clubbing, No cyanosis, Edema - 3+ pitting edema of both extremities Skin: No rashes, No breakdown Musculoskeletal: No Tenderness to Palpation of Joints or Extremities Lymphatic: No Cervical, Supraclavicular, or Inguinal Adenopathy Neurological: Cranial nerves II-XII grossly intact, Neuro grossly intact, Motor Exam 5/5 strength throughout Psych/Mental Status: Normal Affect, Appropriate, Alert and oriented to time, place, person, mood and affect Microbiology Past 72 Hours 04/18/20 11:50 Urine, Clean Catch Urine Culture - Final Escherichia coli 04/18/20 13:05 Mucosa - Nose SARS-CoV-2 Antigen (Rapid) - Final SARS-CoV-2 (COVID 19) Laboratory Results 04/20/20 07:46: WBC 12.8 H, RBC 3.70 L, Hgb 10.4 L, Hct 33.4 L, MCV 90.3, MCH 28.1, MCHC 31.1 L, RDW Std Deviation 53.1 H, RDW Coeff of Frances 16.0 H, Plt Count 129 L, MPV 12.4 H, Immature Gran % (Auto) 0.900, Neut % (Auto) 85.1 H, Lymph % (Auto) 6.1 L, [place] % (Auto) 7.2, Eos % (Auto) 0.5, Baso % (Auto) 0.2, Absolute Neuts (auto) 10.9 H, Absolute Lymphs (auto) 0.78 L, Nucleated RBC % 0 04/20/20 07:46: Sodium 132 L, Potassium 5.0, Chloride 106, Carbon Dioxide 16.0 L , Anion Gap 10, BUN 105 H*, Creatinine 6.49 H, Estim Creat Clear Calc 9.06, Est GFR (MDRD) Af Amer 11 L, Est GFR (MDRD) Non-Af 9 L, BUN/Creatinine Ratio 16.2, Glucose 186 H, Calcium 8.0 L 04/20/20 11:55: POC Glucose 161 H 04/20/20 15:39: POC Glucose 135 H 04/20/20 16:00: Hep B Core Total Ab Pending 04/20/20 16:00: Hep Bs Antigen Pending, Hep Bs Antibody Pending 04/20/20 21:43: POC Glucose 138 H 04/21/20 04:50: WBC 18.9 H, RBC 3.85 L, Hgb 10.8 L, Hct 33.5 L, MCV 87.0, MCH 28.1, MCHC 32.2, RDW Std Deviation 51.0 H, RDW Coeff of Frances 16.0 H, Plt Count 124 L, MPV 12.2 H, Immature Gran % (Auto) 1.000 H, Neut % (Auto) 90.0 H, Lymph % (Auto) 3.1 L, [place] % (Auto) 5.6, Eos % (Auto) 0.1, Baso % (Auto) 0.2, Absolute Neuts (auto) 17.0 H, Absolute Lymphs (auto) 0.59 L, Nucleated RBC % 0 04/21/20 04:50: Sodium 131 L, Potassium 4.9, Chloride 101, Carbon Dioxide 19.0 L , Anion Gap 11, BUN 89 H, Creatinine 5.74 H, Estim Creat Clear Calc 10.24, Est GFR (MDRD) Af Amer 12 L, Est GFR (MDRD) Non-Af 10 L, BUN/Creatinine Ratio 15.5, Glucose 232 H, Calcium 7.9 L 04/21/20 04:50: Free T4 0.98 04/21/20 06:35: POC Glucose 205 H Diagnostic Data Renal Ultrasound 04/18/20 15:20 IMPRESSION: Nonspecific renal parenchymal disease. Small left renal cyst. Electronically Signed: Abhijeet Moya MD at 20:36 EST , Service support , Abdomen/Pelvis CT 04/20/20 10:35 IMPRESSION: 1. Left renal mild hydronephrosis and ureteral dilatation with perinephric stranding concerning for underlying pyelonephritis in the appropriate clinical setting. No definitive ureteral stone is evident. There is compounding chronic bilateral echogenic stranding. Ill-defined hypodensity of the left kidney is also noted likely consistent with cysts though too small to fully characterize. 2. No evidence of pericardial effusion or large intra-abdominal ascites. Electronically Signed: J[place] Park DO at 11:46 EST , Service support , Chest CT 04/20/20 10:35 IMPRESSION: 1. Chronic appearing right greater than left peripheral interstitial markings with peripheral areas of likely scarring changes with likely right main fissure 7 mm chronic appearing nodule adjacent to the pleural based scarring is noted. Recommend follow-up imaging in 6-12 months to document stability. Otherwise no evidence of acute focal airspace disease or acute process. Electronically Signed: Javan Park DO at 11:51 EST , Service support , Chest X-Ray 04/20/20 10:35 IMPRESSION: Cardiomegaly with low volume inspiration is unchanged. Insertion of dialysis catheter with no complications. Electronically Signed: Ronnell Srivastava MD at 12:11 EST , Service support , Current Medications Amlodipine Besylate (Amlodipine 10 Mg Tablet) 10 mg PO DAILY [facility] Last Admin: 04/20/20 08:41 Dose: 10 mg Documented by: Aspirin (Aspirin E.C. 81 Mg Tablet) 81 mg PO DAILY [facility] Last Admin: 04/20/20 08:41 Dose: 81 mg Documented by: Cholecalciferol (Cholecalciferol (Vit D3) 1,000 Unit (25mcg)) 5,000 unit PO DAILY [facility] Last Admin: 04/20/20 08:41 Dose: 5,000 unit Documented by: Glipizide (Glipizide 10 Mg Tablet) 10 mg PO BIDAC [facility] Last Admin: 04/21/20 07:46 Dose: 10 mg Documented by: Sodium Chloride () 250 mls @ 15 mls/hr IV .[id number] PRN PRN Reason: Saline Flush Last Infusion: 04/18/20 16:52 Dose: 0 mls/hr Documented by: Sodium Chloride () 250 mls @ 15 mls/hr IV .[id number] PRN PRN Reason: Additional IVPB Infusion Ceftriaxone Sodium (Rocephin) 1 gm in 50 mls @ 100 mls/hr IV Q24 [facility] Last Infusion: 04/20/20 13:25 Dose: Infused Documented by: Insulin Human Lispro (Insulin Lispro 100 Unit/Ml Insuln.Pen) 0 unit SC ACHS [facility]; Protocol Last Admin: 04/21/20 06:37 Dose: 2 units Documented by: Nitroglycerin (Nitroglycerin (Inpatient Use) 0.4 Mg Tab.Subl) 0.4 mg SUBLINGUAL Q5M PRN PRN Reason: CARDIAC/CHEST PAIN Ondansetron HCl (Ondansetron 4 Mg/2 Ml Vial) 4 mg IV Q8H PRN PRN PRN Reason: NAUSEA/VOMITING Sodium Chloride (0.9% Saline Lock 10 Ml Syringe) 2 - 6 ml IV UD PRN PRN Reason: Pediatric Saline Flush STROKE Vital Signs/Narrative: Vital Signs Pulse 04/21/20 06:59 76 04/21/20 04:37 71 Medical Necessity - Tobacco Use Smoking Status: Never smoker Tobacco Use: Non-smoker Assessment/Plan All Active Problems (Last Reviewed 05/04/18 @ 09:[address] Laron Bacon MD) Swelling of both lower extremities (Acute) Hyperkalemia (Acute) Dyspnea (Acute) # Acute heart failure with preserved EF * BNP is ~ 300 * CXR shows pulmonary vascular congestion. * 2D echo showed EF of 53%, with stage 2 diastolic dysfunction and no regional wall motion abnormalities. left atrium moderately enlarged * on IV lasix drip o/a of severe KITTY on CKD * had dialysis catheter inserted yesterday, with removal of 4L of fluid via dialysis * CT chest and abdomen requested per cardiology didnt show any evidence of constrictive pericarditis * covid antigen was positive, but PCR was negative. * troponins x 3 are negative. * cardiology on board * fluid restriction to 1500cc daily. * monitor intake and output * #KITTY on CKD 3 * renal USG showed nonspecific renal parenchymal disese and small left renal cyst. . * had dialysis with removal of 4L of fluid yesterday * nephrology on board * #UTI: UA showed 3+ bacteria. urine cultured E coli. on IV ceftriaxone #Hyperkalemia * resolved * #Non anion gap metabolic acidosis * bicarb is up to 19 today. due to KITTY on CKD 3 * #Diabetes mellitus: ISS. Accuchecks ACHS and glipizide 10 mg twice daily. Also on lantus #Hypertension: Hold lisinopril on account of KITTY on CKD and hyperkalemia. IV hydralazine as needed. BP has been well controlled. DVT prophylaxis: Lovenox renally dosed CODE STATUS: Full code * Inpatient E&M: 06551 Subs Hosp L3
--- NOTE | 2020-04-21 08:17 | PN.CARD_ITS ---
Subjectve: Patient seen and evaluated. Appears to be doing better. Underwent dialysis yesterday. Objective: Vital Signs Temp Pulse Resp BP Pulse Ox 98.4 F 76 16 107/48 L 95 04/21/20 02:46 04/21/20 06:59 04/21/20 02:46 04/21/20 02:46 04/21/20 02:46 Oxygen Flow Rate (L/min) 2 Oxygen Delivery Method Nasal Cannula Weight: 253 lb 15.983 oz Body Mass Index (BMI) 36.4 Intake and Output for Last 24 Hours 04/19/20 04/20/20 04/21/20 23:59 23:59 23:59 Intake Total 890 / 940 730 / 730 Output Total 825 / 1075 4650 / 4700 50 / 50 Balance 65 / -135 -3920 / -3970 -50 / -50 General: Awake, Alert, Oriented x 3 HEENT: PERRL, EOMI, Sclera Non Icteric Neck: Supple, Good ROM, No Lymph Node Enlargement Lungs: Diminished Wilfredo Bases Cardiovascular: Regular Rhythm, Normal S1, Normal S2, No Murmurs, No Rubs, No Gallops Vascular: No Carotid Bruits, Normal Femoral Pulses, Normal Radial Pulses, Normal Dorsalis Pedal Pulse, Normal Posterior Tibial Pulses Abdomen: Bowel Sounds Present, Soft, Non Tender, No HSM, No Organomegaly Extremities: No Cyanosis, No Clubbing, Bilateral Edema +2 Neurological: No Focal Motor or Sensory Deficit Psych/Mental Status: Appropriate 04/20/20 07:46: Sodium 132 L, Potassium 5.0, Chloride 106, Carbon Dioxide 16.0 L , Anion Gap 10, BUN 105 H*, Creatinine 6.49 H, Est GFR (MDRD) Af Amer 11 L, Est GFR (MDRD) Non-Af 9 L, BUN/Creatinine Ratio 16.2, Glucose 186 H, Calcium 8.0 L 04/21/20 04:50: WBC 18.9 H, RBC 3.85 L, Hgb 10.8 L, Hct 33.5 L, MCV 87.0, MCH 28.1, MCHC 32.2, Plt Count 124 L, MPV 12.2 H, Immature Gran % (Auto) 1.000 H, Neut % (Auto) 90.0 H, Lymph % (Auto) 3.1 L, [place] % (Auto) 5.6, Eos % (Auto) 0.1, Baso % (Auto) 0.2, Absolute Neuts (auto) 17.0 H, Nucleated RBC % 0 04/21/20 04:50: Sodium 131 L, Potassium 4.9, Chloride 101, Carbon Dioxide 19.0 L , Anion Gap 11, BUN 89 H, Creatinine 5.74 H, Est GFR (MDRD) Af Amer 12 L, Est GFR (MDRD) Non-Af 10 L, BUN/Creatinine Ratio 15.5, Glucose 232 H, Calcium 7.9 L Rhythm: EKG: ECHO: Stress Test: Cardiac Cath: PCI: CT Surgery: Holter monitor: EPS: PPM: CXR: Chest CT Scan: Medical Necessity - Tobacco Use Smoking Status: Never smoker Tobacco Use: Non-smoker Assessment/Plan 1. Congestive heart failure with preserved ejection fraction * His ejection fraction by echocardiographic yesterday was noted to be normal. Compared to the previous echocardiogram from 2017. He does not have any evidence of constrictive physiology and his CAT scan did not demonstrate any pericardial thickening. * My suspicion is that the fluid overload status is secondary to his worsening renal function. * He will continue with fluid removal through his renal dialysis. * 2. Hypertension * Good control continue current medical therapy * Would not recommend any other major changes * * Thank you for allowing me to participate in the care of your patient. Please don't hesitate to call if any issues arise.
[2020-04-21 09:05] LABS: Hepatitis B Surface Antibody Non-Reactive; Hepatitis B Surface Antigen Non-Reactive (Nonreactive)
[2020-04-21] MEDS: Ceftriaxone 1 GM/50 ML BAG IV (09:09)
[2020-04-21] MEDS: Acetaminophen 325 MG Tablet 650 MG PO (09:09)
[2020-04-21] MEDS: Aspirin E.C. 81 MG Tablet PO (09:10)
--- NOTE | 2020-04-21 11:04 | PCM.PN.SRG ---
Patient Problems: Active and Suspected Problems (Last Reviewed 05/04/18 @ 09:[address] Laron Bacon MD) Swelling of both lower extremities (Acute) Hyperkalemia (Acute) Dyspnea (Acute) Subjective: Patient tolerated dialysis with a temporary right IJ catheter, current white blood count is 18.9 he is on antibiotics for UTI - Physical Exam Vitals/I&O's: Vital Signs Temp Pulse Resp BP Pulse Ox 97.7 F L 76 18 111/54 L 97 04/21/20 08:45 04/21/20 08:45 04/21/20 08:45 04/21/20 08:45 04/21/20 08:45 Oxygen Flow Rate (L/min) 2 Oxygen Delivery Method Nasal Cannula Weight: 253 lb 15.983 oz Body Mass Index (BMI) 36.4 Intake and Output for Last 24 Hours 04/19/20 04/20/20 04/21/20 23:59 23:59 23:59 Intake Total 890 / 940 730 / 730 50 / 50 Output Total 825 / 1075 4650 / 4700 50 / 50 Balance 65 / -135 -3920 / -3970 0 / 0 General: Alert, Oriented x3, Cooperative, No apparent distress HEENT: Atraumatic, - - Right IJ dialysis catheter in place Lungs: Normal air movement Cardiovascular: Regular rate Abdomen: Soft, Non Tender, Non-Distended Extremities: Edema - With CHRISTIAN wraps on bilateral lower extremities Microbiology Past 72 Hours 04/18/20 11:50 Urine, Clean Catch Urine Culture - Final Escherichia coli 04/18/20 13:05 Mucosa - Nose SARS-CoV-2 Antigen (Rapid) - Final SARS-CoV-2 (COVID 19) Laboratory Results 04/20/20 11:55: POC Glucose 161 H 04/20/20 15:39: POC Glucose 135 H 04/20/20 16:00: Hep B Core Total Ab Pending 04/20/20 16:00: Hep Bs Antigen Non-Reactive, Hep Bs Antibody Non-Reactive 04/20/20 21:43: POC Glucose 138 H 04/21/20 04:50: WBC 18.9 H, RBC 3.85 L, Hgb 10.8 L, Hct 33.5 L, MCV 87.0, MCH 28.1, MCHC 32.2, RDW Std Deviation 51.0 H, RDW Coeff of Frances 16.0 H, Plt Count 124 L, MPV 12.2 H, Immature Gran % (Auto) 1.000 H, Neut % (Auto) 90.0 H, Lymph % (Auto) 3.1 L, [place] % (Auto) 5.6, Eos % (Auto) 0.1, Baso % (Auto) 0.2, Absolute Neuts (auto) 17.0 H, Absolute Lymphs (auto) 0.59 L, Nucleated RBC % 0 04/21/20 04:50: Sodium 131 L, Potassium 4.9, Chloride 101, Carbon Dioxide 19.0 L, Anion Gap 11, BUN 89 H, Creatinine 5.74 H, Estim Creat Clear Calc 10.24, Est GFR (MDRD) Af Amer 12 L, Est GFR (MDRD) Non-Af 10 L, BUN/Creatinine Ratio 15.5, Glucose 232 H, Calcium 7.9 L 04/21/20 04:50: Free T4 0.98 04/21/20 06:35: POC Glucose 205 H Current Medications Acetaminophen (Acetaminophen 325 Mg Tablet) 650 mg PO Q6H PRN PRN PRN Reason: Pain Score 1-10 Last Admin: 04/21/20 09:09 Dose: 650 mg Documented by: Amlodipine Besylate (Amlodipine 10 Mg Tablet) 10 mg PO DAILY [facility] Last Admin: 04/20/20 08:41 Dose: 10 mg Documented by: Aspirin (Aspirin E.C. 81 Mg Tablet) 81 mg PO DAILY [facility] Last Admin: 04/21/20 09:10 Dose: 81 mg Documented by: Cholecalciferol (Cholecalciferol (Vit D3) 1,000 Unit (25mcg)) 5,000 unit PO DAILY [facility] Last Admin: 04/21/20 09:10 Dose: 5,000 unit Documented by: Glipizide (Glipizide 10 Mg Tablet) 10 mg PO BIDAC [facility] Last Admin: 04/21/20 07:46 Dose: 10 mg Documented by: Sodium Chloride () 250 mls @ 15 mls/hr IV .[id number] PRN PRN Reason: Saline Flush Last Infusion: 04/18/20 16:52 Dose: 0 mls/hr Documented by: Sodium Chloride () 250 mls @ 15 mls/hr IV .[id number] PRN PRN Reason: Additional IVPB Infusion Ceftriaxone Sodium (Rocephin) 1 gm in 50 mls @ 100 mls/hr IV Q24 [facility] Last Infusion: 04/21/20 09:45 Dose: Infused Documented by: Insulin Human Lispro (Insulin Lispro 100 Unit/Ml Insuln.Pen) 0 unit SC ACHS [facility]; Protocol Last Admin: 04/21/20 10:59 Dose: 3 units Documented by: Nitroglycerin (Nitroglycerin (Inpatient Use) 0.4 Mg Tab.Subl) 0.4 mg SUBLINGUAL Q5M PRN PRN Reason: CARDIAC/CHEST PAIN Ondansetron HCl (Ondansetron 4 Mg/2 Ml Vial) 4 mg IV Q8H PRN PRN PRN Reason: NAUSEA/VOMITING Sodium Chloride (0.9% Saline Lock 10 Ml Syringe) 2 - 6 ml IV UD PRN PRN Reason: Pediatric Saline Flush Medical Necessity - Tobacco Use Smoking Status: Never smoker Tobacco Use: Non-smoker Assessment/Plan All Active Problems (Last Reviewed 05/04/18 @ 09:[address] Laron Bacon MD) Swelling of both lower extremities (Acute) Hyperkalemia (Acute) Dyspnea (Acute) 84-year-old male with acute on chronic kidney disease request for dialysis catheter We will plan to place tunneled dialysis catheter prior to patient discharge. Currently white blood count 18.9 we will continue to monitor possible schedule for Tuesday. Discussed with patient he had no further questions about the catheter. Tootie Franklin M.D. Pager: [phone] [facility] [address] [place] [address], [facility] [address] [place] [id number] Office: [phone] Inpatient E&M: 94724 [facility] Hosp L1
[2020-04-21 11:06] LABS: Bedside Glucose 244 mg/dL (70-110)
--- NOTE | 2020-04-21 16:18 | PN.RENAL_ITS ---
Patient Problems: Active and Suspected Problems (Last Reviewed 05/04/18 @ 09:[address] Laron Bacon MD) Swelling of both lower extremities (Acute) Hyperkalemia (Acute) Dyspnea (Acute) - Physical Exam Vitals/I&O's: Vital Signs Temp Pulse Resp BP Pulse Ox 97.6 F L 79 18 129/69 H 96 04/21/20 14:45 04/21/20 14:59 04/21/20 14:45 04/21/20 14:45 04/21/20 14:45 Oxygen Flow Rate (L/min) 2 Oxygen Delivery Method Nasal Cannula Weight: 115.212 kg Body Mass Index (BMI) 36.4 Intake and Output for Last 24 Hours 04/19/20 04/20/20 04/21/20 23:59 23:59 23:59 Intake Total 890 / 940 730 / 730 530 / 530 Output Total 825 / 1075 4650 / 4700 625 / 625 Balance 65 / -135 -3920 / -3970 -95 / -95 General: Alert, Cooperative HEENT: Atraumatic, Normocephalic Neck: Supple Lungs: Clear to auscultation, Normal air movement Cardiovascular: Regular rate, Regular Rhythm, Normal S1, Normal S2 Microbiology Past 72 Hours 04/18/20 11:50 Urine, Clean Catch Urine Culture - Final Escherichia coli 04/18/20 13:05 Mucosa - Nose SARS-CoV-2 Antigen (Rapid) - Final SARS-CoV-2 (COVID 19) Laboratory Results 04/20/20 16:00: Hep Bs Antigen Non-Reactive, Hep Bs Antibody Non-Reactive 04/20/20 21:43: POC Glucose 138 H 04/21/20 04:50: WBC 18.9 H, RBC 3.85 L, Hgb 10.8 L, Hct 33.5 L, MCV 87.0, MCH 28.1, MCHC 32.2, RDW Std Deviation 51.0 H, RDW Coeff of Frances 16.0 H, Plt Count 124 L, MPV 12.2 H, Immature Gran % (Auto) 1.000 H, Neut % (Auto) 90.0 H, Lymph % (Auto) 3.1 L, [place] % (Auto) 5.6, Eos % (Auto) 0.1, Baso % (Auto) 0.2, Absolute Neuts (auto) 17.0 H, Absolute Lymphs (auto) 0.59 L, Nucleated RBC % 0 04/21/20 04:50: Sodium 131 L, Potassium 4.9, Chloride 101, Carbon Dioxide 19.0 L , Anion Gap 11, BUN 89 H, Creatinine 5.74 H, Estim Creat Clear Calc 10.24, Est GFR (MDRD) Af Amer 12 L, Est GFR (MDRD) Non-Af 10 L, BUN/Creatinine Ratio 15.5, Glucose 232 H, Calcium 7.9 L 04/21/20 04:50: Free T4 0.98 04/21/20 06:35: POC Glucose 205 H 04/21/20 10:58: POC Glucose 244 H Current Medications Acetaminophen (Acetaminophen 325 Mg Tablet) 650 mg PO Q6H PRN PRN PRN Reason: Pain Score 1-10 Last Admin: 04/21/20 09:09 Dose: 650 mg Documented by: Amlodipine Besylate (Amlodipine 10 Mg Tablet) 10 mg PO DAILY [facility] Last Admin: 04/20/20 08:41 Dose: 10 mg Documented by: Aspirin (Aspirin E.C. 81 Mg Tablet) 81 mg PO DAILY [facility] Last Admin: 04/21/20 09:10 Dose: 81 mg Documented by: Cholecalciferol (Cholecalciferol (Vit D3) 1,000 Unit (25mcg)) 5,000 unit PO DAILY [facility] Last Admin: 04/21/20 09:10 Dose: 5,000 unit Documented by: Glipizide (Glipizide 10 Mg Tablet) 10 mg PO BIDAC [facility] Last Admin: 04/21/20 07:46 Dose: 10 mg Documented by: Sodium Chloride () 250 mls @ 15 mls/hr IV .[id number] PRN PRN Reason: Saline Flush Last Infusion: 04/18/20 16:52 Dose: 0 mls/hr Documented by: Sodium Chloride () 250 mls @ 15 mls/hr IV .[id number] PRN PRN Reason: Additional IVPB Infusion Ceftriaxone Sodium (Rocephin) 1 gm in 50 mls @ 100 mls/hr IV Q24 [facility] Last Infusion: 04/21/20 09:45 Dose: Infused Documented by: Insulin Glargine (Insulin Glargine 100 Units/Ml Pen) 30 units SC DINNER [facility] Insulin Human Lispro (Insulin Lispro 100 Unit/Ml Insuln.Pen) 0 unit SC ACHS [facility]; Protocol Last Admin: 04/21/20 10:59 Dose: 3 units Documented by: Metoprolol Tartrate (Metoprolol Tartrate 25 Mg Tablet) 12.5 mg PO BID [facility] Nitroglycerin (Nitroglycerin (Inpatient Use) 0.4 Mg Tab.Subl) 0.4 mg SUBLINGUAL Q5M PRN PRN Reason: CARDIAC/CHEST PAIN Ondansetron HCl (Ondansetron 4 Mg/2 Ml Vial) 4 mg IV Q8H PRN PRN PRN Reason: NAUSEA/VOMITING Sodium Chloride (0.9% Saline Lock 10 Ml Syringe) 2 - 6 ml IV UD PRN PRN Reason: Pediatric Saline Flush Medical Necessity - Tobacco Use Smoking Status: Never smoker Tobacco Use: Non-smoker Assessment/Plan All Active Problems (Last Reviewed 05/04/18 @ 09:[address] Laron Bacon MD) Swelling of both lower extremities (Acute) Hyperkalemia (Acute) Dyspnea (Acute) KITTY likely CRS CKD 3 Hypervolemia HFpEF HTN seen on HD tolerating well surgery f/u for TDC prior to d/c Has rij temporary catheter HD tomorrow bp ok monitor d/w CM for placement in HD unit
[2020-04-21 17:05] LABS: Bedside Glucose 140 mg/dL (70-110)
--- NOTE | 2020-04-21 17:43 | DIALYSIS ---
HD x 3 hours complete. Tolerated tx well. UF of 2000ml. Used right IJ catheter. Catheter closed with heparin per fill volume. Caps placed. Dressing is dry and intact. Report was given to ISABEL Yu.
[2020-04-21] MEDS: Heparin 10,000 UNITS/10 ML Vial IV (17:45)
[2020-04-21] MEDS: Metoprolol Tartrate 25 MG Tablet 12.5 MG PO (21:33)
[2020-04-21 22:05] LABS: Bedside Glucose 222 mg/dL (70-110)
[2020-04-22] VITALS (14 sets, daily range): BP systolic 92–124; BP diastolic 41–58; PULSE 53–97; RESP 16–20; TEMP 35.7–37.1; O2SAT 94–96
[2020-04-22 06:16] LABS: Bedside Glucose 166 mg/dL (70-110)
[2020-04-22] MEDS: Insulin Lispro 100 UNIT/ML INSULN.PEN SC ×3 (06:34→20:36)
--- NOTE | 2020-04-22 07:49 | PN_ITS ---
Patient Problems: Active and Suspected Problems (Last Reviewed 05/04/18 @ 09:[address] Laron Bacon MD) Swelling of both lower extremities (Acute) Hyperkalemia (Acute) Dyspnea (Acute) Subjective: Patient seen and examined. He complains of feeling dizzy and lightheaded this morning, and was also having some retching. He had dialysis yesterday with removal of 2 L of fluid. He has remained hemodynamically stable. Orthostatics checked today is negative. Vitals/I&O's: Vital Signs Temp Pulse Resp BP Pulse Ox 98.3 F 97 18 112/58 L 96 04/22/20 03:13 04/22/20 07:00 04/22/20 03:13 04/22/20 03:13 04/22/20 03:13 Oxygen Flow Rate (L/min) 2 Oxygen Delivery Method Nasal Cannula Weight: 253 lb 15.983 oz Body Mass Index (BMI) 36.4 Intake and Output for Last 24 Hours 04/20/20 04/21/20 04/22/20 23:59 23:59 23:59 Intake Total 730 / 730 890 / 990 300 / 300 Output Total 4650 / 4700 2675 / 2750 150 / 150 Balance -3920 / -3970 -1785 / -1760 150 / 150 General: Alert, Oriented x3, Cooperative, lethargic HEENT: Atraumatic, PERRLA, EOMI, Normocephalic Oral: moist Mucosa Neck: Supple, No JVD, Negative Carotid Bruits Lungs: - - diminished breath sounds bibasally. Cardiovascular: Regular rate, Regular Rhythm, Normal S1, Normal S2, No murmurs Abdomen: Bowel Sounds Present, Soft, Non Tender, Non-Distended, No Hepato- splenomegaly, Obese Extremities: No clubbing, No cyanosis, Edema - 3+ pitting edema of both extremities Skin: No rashes, No breakdown Musculoskeletal: No Tenderness to Palpation of Joints or Extremities; dialysis catheter in chest Lymphatic: No Cervical, Supraclavicular, or Inguinal Adenopathy Neurological: Cranial nerves II-XII grossly intact, Neuro grossly intact, Motor Exam 5/5 strength throughout Psych/Mental Status: Normal Affect, Appropriate, Alert and oriented to time, place, person, mood and affect Microbiology Past 72 Hours 04/18/20 11:50 Urine, Clean Catch Urine Culture - Final Escherichia coli Laboratory Results 04/20/20 16:00: Hep Bs Antigen Non-Reactive, Hep Bs Antibody Non-Reactive 04/21/20 04:50: Free T4 0.98 04/21/20 10:58: POC Glucose 244 H 04/21/20 17:03: POC Glucose 140 H 04/21/20 21:30: POC Glucose 222 H 04/22/20 06:08: POC Glucose 166 H Current Medications Acetaminophen (Acetaminophen 325 Mg Tablet) 650 mg PO Q6H PRN PRN PRN Reason: Pain Score 1-10 Last Admin: 04/21/20 09:09 Dose: 650 mg Documented by: Amlodipine Besylate (Amlodipine 10 Mg Tablet) 10 mg PO DAILY [facility] Last Admin: 04/21/20 17:56 Dose: Not Given Documented by: Aspirin (Aspirin E.C. 81 Mg Tablet) 81 mg PO DAILY [facility] Last Admin: 04/21/20 09:10 Dose: 81 mg Documented by: Cholecalciferol (Cholecalciferol (Vit D3) 1,000 Unit (25mcg)) 5,000 unit PO DAILY [facility] Last Admin: 04/21/20 09:10 Dose: 5,000 unit Documented by: Glipizide (Glipizide 10 Mg Tablet) 10 mg PO BIDAC [facility] Last Admin: 04/21/20 17:57 Dose: 10 mg Documented by: Sodium Chloride () 250 mls @ 15 mls/hr IV .[id number] PRN PRN Reason: Saline Flush Last Infusion: 04/18/20 16:52 Dose: 0 mls/hr Documented by: Sodium Chloride () 250 mls @ 15 mls/hr IV .[id number] PRN PRN Reason: Additional IVPB Infusion Ceftriaxone Sodium (Rocephin) 1 gm in 50 mls @ 100 mls/hr IV Q24 [facility] Last Infusion: 04/21/20 09:45 Dose: Infused Documented by: Insulin Glargine (Insulin Glargine 100 Units/Ml Pen) 30 units SC DINNER [facility] Last Admin: 04/21/20 17:58 Dose: 30 u Documented by: Insulin Human Lispro (Insulin Lispro 100 Unit/Ml Insuln.Pen) 0 unit SC ACHS [facility]; Protocol Last Admin: 04/22/20 06:34 Dose: 1 units Documented by: Metoprolol Tartrate (Metoprolol Tartrate 25 Mg Tablet) 12.5 mg PO BID [facility] Last Admin: 04/21/20 21:33 Dose: 12.5 mg Documented by: Nitroglycerin (Nitroglycerin (Inpatient Use) 0.4 Mg Tab.Subl) 0.4 mg SUBLINGUAL Q5M PRN PRN Reason: CARDIAC/CHEST PAIN Ondansetron HCl (Ondansetron 4 Mg/2 Ml Vial) 4 mg IV Q8H PRN PRN PRN Reason: NAUSEA/VOMITING Sodium Chloride (0.9% Saline Lock 10 Ml Syringe) 2 - 6 ml IV UD PRN PRN Reason: Pediatric Saline Flush STROKE Vital Signs/Narrative: Vital Signs Pulse 04/22/20 07:00 97 04/22/20 03:59 72 Medical Necessity - Tobacco Use Smoking Status: Never smoker Tobacco Use: Non-smoker Assessment/Plan All Active Problems (Last Reviewed 05/04/18 @ 09:[address] Laron Bacon MD) Swelling of both lower extremities (Acute) Hyperkalemia (Acute) Dyspnea (Acute) # Acute heart failure with preserved EF * CXR shows pulmonary vascular congestion. * 2D echo showed EF of 53%, with stage 2 diastolic dysfunction and no regional wall motion abnormalities. left atrium moderately enlarged * off lasix drip. has had 2 sessions of dialysis to help with removal of fluids * CT chest and abdomen requested per cardiology didnt show any evidence of constrictive pericarditis * covid antigen was positive, but PCR was negative., Patient not in isolation. * troponins x 3 are negative. * cardiology on board * fluid restriction to 1500cc daily. * monitor intake and output * For dialysis today. * #KITTY on CKD 3 * renal USG showed nonspecific renal parenchymal disese and small left renal cyst. . * had temporary dialysis catheter placed for dialysis. * has had 2 sessions of dialysis; for another session of dialysis today * nephrology on board * CR is down to 4.45 * #UTI: UA showed 3+ bacteria. urine cultured E coli. on IV ceftriaxone #Hyperkalemia * potassium today is 5.4. For dialysis today * #Non anion gap metabolic acidosis * stable.bicarb is up to 20 today * #Diabetes mellitus: ISS. Accuchecks ACHS and glipizide 10 mg twice daily. Also on lantus #Hypertension: Hold lisinopril on account of KITTY on CKD and hyperkalemia. IV hydralazine as needed. BP has been well controlled. DVT prophylaxis: Lovenox renally dosed CODE STATUS: Full code * Inpatient E&M: 72455 Subs Hosp L2
--- NOTE | 2020-04-22 08:07 | PN.CARD_ITS ---
Subjectve: Patient seen and evaluated. He says that he feels so-so. Not sure whether he feels any better. Objective: Vital Signs Temp Pulse Resp BP Pulse Ox 98.3 F 97 18 112/58 L 96 04/22/20 03:13 04/22/20 07:00 04/22/20 03:13 04/22/20 03:13 04/22/20 03:13 Oxygen Flow Rate (L/min) 2 Oxygen Delivery Method Nasal Cannula Weight: 253 lb 15.983 oz Body Mass Index (BMI) 36.4 Intake and Output for Last 24 Hours 04/20/20 04/21/20 04/22/20 23:59 23:59 23:59 Intake Total 730 / 730 890 / 990 300 / 300 Output Total 4650 / 4700 2675 / 2750 150 / 150 Balance -3920 / -3970 -1785 / -1760 150 / 150 General: Awake, Alert, Oriented x 3 HEENT: PERRL, EOMI, Sclera Non Icteric Neck: Supple, Good ROM, No Lymph Node Enlargement Lungs: Clear to auscultation Cardiovascular: Regular Rhythm, Normal S1, Normal S2, No Murmurs, No Rubs, No Gallops Vascular: No Carotid Bruits, Normal Femoral Pulses, Normal Radial Pulses, Normal Dorsalis Pedal Pulse, Normal Posterior Tibial Pulses Abdomen: Bowel Sounds Present, Soft, Non Tender, No HSM, No Organomegaly Extremities: No Cyanosis, No Clubbing Musculoskeletal: No Erythema Skin: No Rashes Neurological: No Focal Motor or Sensory Deficit Psych/Mental Status: Appropriate Rhythm: EKG: ECHO: Stress Test: Cardiac Cath: PCI: CT Surgery: Holter monitor: EPS: PPM: CXR: Chest CT Scan: Medical Necessity - Tobacco Use Smoking Status: Never smoker Tobacco Use: Non-smoker Assessment/Plan 1. Congestive heart failure with preserved ejection fraction * His ejection fraction by echocardiographic yesterday was noted to be normal. Compared to the previous echocardiogram from 2017. He does not have any evidence of constrictive physiology and his CAT scan did not demonstrate any pericardial thickening. * My suspicion is that the fluid overload status is secondary to his worsening renal function. * He will continue with fluid removal through his renal dialysis. * Probably made mild improvement overnight. * 2. Hypertension * Good control continue current medical therapy * Would not recommend any other major changes * * Thank you for allowing me to participate in the care of your patient. Please don't hesitate to call if any issues arise.
[2020-04-22 08:08] LABS: Absolute Lymphocyte Count 0.23 X10^3/uL (0.83-4.51); Absolute Neutrophil Count 8.7 X10^3/uL (2.0-7.7); Basophil# 0.04 X10^3/uL; Basophil% 0.4 % (0-1); Eosinophil# 0.15 X10^3/uL; Eosinophils% 1.6 % (0-5); Hematocrit 36.8 % (40-54); Hemoglobin 11.4 g/dL (13.0-16.5); Lymphocyte # 0.23 X10^3/ul (4.0); Lymphocyte % 2.5 % (19-41); Mean Corpuscular Hgb 27.6 pg (27.0-32.0); Mean Corpuscular Volume 89.1 fL (80-94); Mean Platelet Vol. 12.4 fl (6.2-12.0); Monocyte# 0.05 X10^3/uL; Monocyte% 0.5 % (0-10); NRBC Flagged by Analyzer 0 % (0-5); Neutrophil # 8.65 X10^3/uL (2.7-7.7); Neutrophil % 92.6 % (47-70); POSITIVE DIFFERENTIAL YES; Platelet Count 123 K/mm3 (150-450); RBC Distribution Width CV 15.9 % (11.6-14.6); RBC Distribution Width SD 52.3 fl (35.1-43.9); Red Blood Count 4.13 M/mm3 (4.6-6.2); White Blood Count 9.3 K/mm3 (4.4-11.0)
[2020-04-22 08:10] LABS: Differential Indicated SCAN CRITERIA MET
[2020-04-22 08:28] LABS: Anion Gap 8 (5-15); BUN 61 mg/dL (7-18); BUN/Creat Ratio 13.7 RATIO (10-20); Calcium,Total 7.8 mg/dL (8.5-10.1); Chloride 104 mmol/L (98-107); Creatinine, Serum 4.45 mg/dL (0.70-1.30); EST Glomerular Filtration Rate 14 mL/min (>60); Est Glom Filt Rate - Afr Amer 16 mL/min (>60); Estimated Creatinine Clearance 13.21 ml/min; Glucose 181 mg/dL (74-106); Potassium 5.4 mmol/L (3.5-5.1); Sodium Level 132 mmol/L (136-145)
[2020-04-22 08:34] LABS: Hepatitis B Core Ab Total Negative (Negative)
[2020-04-22] MEDS: Ondansetron 4 MG/2 ML Vial IV (08:45)
[2020-04-22] MEDS: 0.9% Saline Lock 10 ML Syringe IV (08:45)
[2020-04-22] MEDS: Acetaminophen 325 MG Tablet 650 MG PO (08:49)
--- NOTE | 2020-04-22 11:27 | PN.SURG_ITS ---
Patient Problems: Active and Suspected Problems (Last Reviewed 05/04/18 @ 09:[address] Laron Bacon MD) Swelling of both lower extremities (Acute) Hyperkalemia (Acute) Dyspnea (Acute) Subjective: Patient currently getting dialysis, 3rd day in a row?Patient tolerating - Physical Exam Vitals/I&O's: Vital Signs Temp Pulse Resp BP Pulse Ox 98.8 F 77 18 120/58 L 94 04/22/20 08:54 04/22/20 08:54 04/22/20 08:54 04/22/20 08:54 04/22/20 08:54 Oxygen Flow Rate (L/min) 2 Oxygen Delivery Method Nasal Cannula Weight: 253 lb 15.983 oz Body Mass Index (BMI) 36.4 Orthostatic Vital Signs Start: 04/22/20 09:19 Freq: q24h Status: Active Protocol: Activity Type Activity Date Activity User E-Sign Co-Sign Detail Recorded Client Recorded Date Recorded By Document 04/22/20 08:30 AMG [id number] 04/22/20 09:20 AMG 04/22/20 08:30 Orthostatic Vitals Standing -Blood Pressure (90/60-120/80) 107/53 L -Extremity Use Right Arm -Pulse Rate (60-100) 92 Sitting -Blood Pressure (90/60-120/80) 124/52 H -Extremity Use Right Arm -Pulse Rate (60-100) 90 Lying -Blood Pressure (90/60-120/80) 116/55 L -Extremity Use Right Arm -Pulse Rate (60-100) 88 Intake and Output for Last 24 Hours 04/20/20 04/21/20 04/22/20 23:59 23:59 23:59 Intake Total 730 / 730 890 / 990 300 / 300 Output Total 4650 / 4700 2675 / 2750 150 / 150 Balance -3920 / -3970 -1785 / -1760 150 / 150 General: Alert, Oriented x3, Cooperative, No apparent distress HEENT: Atraumatic Lungs: Normal air movement Cardiovascular: Regular rate Abdomen: Soft, Non Tender, Non-Distended Microbiology Past 72 Hours 04/18/20 11:50 Urine, Clean Catch Urine Culture - Final Escherichia coli Laboratory Results 04/20/20 16:00: Hep B Core Total Ab Negative 04/21/20 17:03: POC Glucose 140 H 04/21/20 21:30: POC Glucose 222 H 04/22/20 06:08: POC Glucose 166 H 04/22/20 07:15: WBC 9.3, RBC 4.13 L, Hgb 11.4 L, Hct 36.8 L, MCV 89.1, MCH 27.6, MCHC 31.0 L, RDW Std Deviation 52.3 H, RDW Coeff of Frances 15.9 H, Plt Count 123 L, MPV 12.4 H, Immature Gran % (Auto) 2.400 H, Neut % (Auto) 92.6 H, Lymph % (Auto) 2.5 L, Long % (Auto) 0.5, Eos % (Auto) 1.6, Baso % (Auto) 0.4, Absolute Neuts (auto) 8.7 H, Absolute Lymphs (auto) 0.23 L, Nucleated RBC % 0, Differential Comment COMMENT 04/22/20 07:15: Sodium 132 L, Potassium 5.4 H, Chloride 104, Carbon Dioxide 20.0 L, Anion Gap 8, BUN 61 H, Creatinine 4.45 H, Estim Creat Clear Calc 13.21, Est GFR (MDRD) Af Amer 16 L, Est GFR (MDRD) Non-Af 14 L, BUN/Creatinine Ratio 13.7, Glucose 181 H, Calcium 7.8 L Current Medications Acetaminophen (Acetaminophen 325 Mg Tablet) 650 mg PO Q6H PRN PRN PRN Reason: Pain Score 1-10 Last Admin: 04/22/20 08:49 Dose: 650 mg Documented by: Amlodipine Besylate (Amlodipine 10 Mg Tablet) 10 mg PO DAILY [facility] Last Admin: 04/21/20 17:56 Dose: Not Given Documented by: Aspirin (Aspirin E.C. 81 Mg Tablet) 81 mg PO DAILY [facility] Last Admin: 04/21/20 09:10 Dose: 81 mg Documented by: Cholecalciferol (Cholecalciferol (Vit D3) 1,000 Unit (25mcg)) 5,000 unit PO DAILY [facility] Last Admin: 04/21/20 09:10 Dose: 5,000 unit Documented by: Glipizide (Glipizide 10 Mg Tablet) 10 mg PO BIDAC [facility] Last Admin: 04/21/20 17:57 Dose: 10 mg Documented by: Sodium Chloride () 250 mls @ 15 mls/hr IV .[id number] PRN PRN Reason: Saline Flush Last Infusion: 04/18/20 16:52 Dose: 0 mls/hr Documented by: Sodium Chloride () 250 mls @ 15 mls/hr IV .[id number] PRN PRN Reason: Additional IVPB Infusion Ceftriaxone Sodium (Rocephin) 1 gm in 50 mls @ 100 mls/hr IV Q24 [facility] Last Infusion: 04/21/20 09:45 Dose: Infused Documented by: Insulin Glargine (Insulin Glargine 100 Units/Ml Pen) 30 units SC DINNER [facility] Last Admin: 04/21/20 17:58 Dose: 30 u Documented by: Insulin Human Lispro (Insulin Lispro 100 Unit/Ml Insuln.Pen) 0 unit SC ACHS [facility]; Protocol Last Admin: 04/22/20 06:34 Dose: 1 units Documented by: Metoprolol Tartrate (Metoprolol Tartrate 25 Mg Tablet) 12.5 mg PO BID [facility] Last Admin: 04/21/20 21:33 Dose: 12.5 mg Documented by: Nitroglycerin (Nitroglycerin (Inpatient Use) 0.4 Mg Tab.Subl) 0.4 mg SUBLINGUAL Q5M PRN PRN Reason: CARDIAC/CHEST PAIN Ondansetron HCl (Ondansetron 4 Mg/2 Ml Vial) 4 mg IV Q6H PRN PRN PRN Reason: NAUSEA/VOMITING Last Admin: 04/22/20 08:45 Dose: 4 mg Documented by: Sodium Chloride (0.9% Saline Lock 10 Ml Syringe) 10 - 40 ml IV UD PRN PRN Reason: SALINE FLUSH Last Admin: 04/22/20 08:45 Dose: 10 ml Documented by: Medical Necessity - Tobacco Use Smoking Status: Never smoker Tobacco Use: Non-smoker Assessment/Plan All Active Problems (Last Reviewed 05/04/18 @ 09:[address] Laron Bacon MD) Swelling of both lower extremities (Acute) Hyperkalemia (Acute) Dyspnea (Acute) 84-year-old male with acute on chronic kidney disease request for dialysis catheter We will tentatively plan to place a tunneled dialysis catheter on depending on patient's next dialysis will be Tootie Franklin M.D. Pager: [phone] [facility] [address] [place] [address], [facility], [address] [place] [address] Office: [phone] Inpatient E&M: 69054 Subs Hosp L1
[2020-04-22 12:06] LABS: Bedside Glucose 101 mg/dL (70-110)
--- NOTE | 2020-04-22 12:31 | PN.RENAL_ITS ---
Patient Problems: Active and Suspected Problems (Last Reviewed 05/04/18 @ 09:[address] Laron Bacon MD) Swelling of both lower extremities (Acute) Hyperkalemia (Acute) Dyspnea (Acute) Subjective: Denies shortness of breath or chest pain states he feels better. - Physical Exam Vitals/I&O's: Vital Signs Temp Pulse Resp BP Pulse Ox 97.3 F L 55 L 18 122/45 H 96 04/22/20 12:00 04/22/20 12:00 04/22/20 12:00 04/22/20 12:00 04/22/20 12:00 Oxygen Flow Rate (L/min) 2 Oxygen Delivery Method Nasal Cannula Weight: 115.212 kg Body Mass Index (BMI) 36.4 Orthostatic Vital Signs Start: 04/22/20 09:19 Freq: q24h Status: Active Protocol: Activity Type Activity Date Activity User E-Sign Co-Sign Detail Recorded Client Recorded Date Recorded By Document 04/22/20 08:30 AMG [id number] 04/22/20 09:20 AMG 04/22/20 08:30 Orthostatic Vitals Standing -Blood Pressure (90/60-120/80) 107/53 L -Extremity Use Right Arm -Pulse Rate (60-100) 92 Sitting -Blood Pressure (90/60-120/80) 124/52 H -Extremity Use Right Arm -Pulse Rate (60-100) 90 Lying -Blood Pressure (90/60-120/80) 116/55 L -Extremity Use Right Arm -Pulse Rate (60-100) 88 Intake and Output for Last 24 Hours 04/20/20 04/21/20 04/22/20 23:59 23:59 23:59 Intake Total 730 / 730 890 / 990 540 / 540 Output Total 4650 / 4700 2675 / 2750 175 / 175 Balance -3920 / -3970 -1785 / -1760 365 / 365 General: Alert, Cooperative HEENT: Normocephalic Oral: Moist Mucosa Neck: Supple, Trachea Midline Lungs: Clear to auscultation, Normal air movement, Rales Cardiovascular: Regular rate, Regular Rhythm, Normal S1, Normal S2 Abdomen: Bowel Sounds Present, Soft, Non Tender Extremities: No clubbing, No cyanosis Microbiology Past 72 Hours 04/18/20 11:50 Urine, Clean Catch Urine Culture - Final Escherichia coli Laboratory Results 04/20/20 16:00: Hep B Core Total Ab Negative 04/21/20 17:03: POC Glucose 140 H 04/21/20 21:30: POC Glucose 222 H 04/22/20 06:08: POC Glucose 166 H 04/22/20 07:15: WBC 9.3, RBC 4.13 L, Hgb 11.4 L, Hct 36.8 L, MCV 89.1, MCH 27.6, MCHC 31.0 L, RDW Std Deviation 52.3 H, RDW Coeff of Frances 15.9 H, Plt Count 123 L, MPV 12.4 H, Immature Gran % (Auto) 2.400 H, Neut % (Auto) 92.6 H, Lymph % (Auto) 2.5 L, Amelia % (Auto) 0.5, Eos % (Auto) 1.6, Baso % (Auto) 0.4, Absolute Neuts (auto) 8.7 H, Absolute Lymphs (auto) 0.23 L, Nucleated RBC % 0, Differential Comment COMMENT 04/22/20 07:15: Sodium 132 L, Potassium 5.4 H, Chloride 104, Carbon Dioxide 20.0 L, Anion Gap 8, BUN 61 H, Creatinine 4.45 H, Estim Creat Clear Calc 13.21, Est GFR (MDRD) Af Amer 16 L, Est GFR (MDRD) Non-Af 14 L, BUN/Creatinine Ratio 13.7, Glucose 181 H, Calcium 7.8 L 04/22/20 11:55: POC Glucose 101 Current Medications Acetaminophen (Acetaminophen 325 Mg Tablet) 650 mg PO Q6H PRN PRN PRN Reason: Pain Score 1-10 Last Admin: 04/22/20 08:49 Dose: 650 mg Documented by: Amlodipine Besylate (Amlodipine 10 Mg Tablet) 10 mg PO DAILY [facility] Last Admin: 04/21/20 17:56 Dose: Not Given Documented by: Aspirin (Aspirin E.C. 81 Mg Tablet) 81 mg PO DAILY [facility] Last Admin: 04/21/20 09:10 Dose: 81 mg Documented by: Cholecalciferol (Cholecalciferol (Vit D3) 1,000 Unit (25mcg)) 5,000 unit PO DAILY [facility] Last Admin: 04/21/20 09:10 Dose: 5,000 unit Documented by: Glipizide (Glipizide 10 Mg Tablet) 10 mg PO BIDAC [facility] Last Admin: 04/22/20 12:08 Dose: Not Given Documented by: Sodium Chloride () 250 mls @ 15 mls/hr IV .[id number] PRN PRN Reason: Saline Flush Last Infusion: 04/18/20 16:52 Dose: 0 mls/hr Documented by: Sodium Chloride () 250 mls @ 15 mls/hr IV .[id number] PRN PRN Reason: Additional IVPB Infusion Ceftriaxone Sodium (Rocephin) 1 gm in 50 mls @ 100 mls/hr IV Q24 [facility] Last Infusion: 04/21/20 09:45 Dose: Infused Documented by: Insulin Glargine (Insulin Glargine 100 Units/Ml Pen) 30 units SC DINNER [facility] Last Admin: 04/21/20 17:58 Dose: 30 u Documented by: Insulin Human Lispro (Insulin Lispro 100 Unit/Ml Insuln.Pen) 0 unit SC ACHS [facility]; Protocol Last Admin: 04/22/20 12:08 Dose: Not Given Documented by: Metoprolol Tartrate (Metoprolol Tartrate 25 Mg Tablet) 12.5 mg PO BID [facility] Last Admin: 04/21/20 21:33 Dose: 12.5 mg Documented by: Nitroglycerin (Nitroglycerin (Inpatient Use) 0.4 Mg Tab.Subl) 0.4 mg SUBLINGUAL Q5M PRN PRN Reason: CARDIAC/CHEST PAIN Ondansetron HCl (Ondansetron 4 Mg/2 Ml Vial) 4 mg IV Q6H PRN PRN PRN Reason: NAUSEA/VOMITING Last Admin: 04/22/20 08:45 Dose: 4 mg Documented by: Sodium Chloride (0.9% Saline Lock 10 Ml Syringe) 10 - 40 ml IV UD PRN PRN Reason: SALINE FLUSH Last Admin: 04/22/20 08:45 Dose: 10 ml Documented by: Medical Necessity - Tobacco Use Smoking Status: Never smoker Tobacco Use: Non-smoker Assessment/Plan All Active Problems (Last Reviewed 05/04/18 @ 09:[address] 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
--- NOTE | 2020-04-22 12:36 | DIALYSIS ---
Pt completed 4 hours hemodialysis via RIJ temporary CVC with 2.5 liters fluid removed. CVC lumens flushed with NS and locked with heparin per order. Pt tolerated dialysis without difficulty.
[2020-04-22] MEDS: Heparin 10,000 UNITS/10 ML Vial IV (12:45)
[2020-04-22] MEDS: Ceftriaxone 1 GM/50 ML BAG IV (12:49)
[2020-04-22] MEDS: Aspirin E.C. 81 MG Tablet PO (12:51)
[2020-04-22] MEDS: amLODIPine 10 MG Tablet PO (12:51)
--- NOTE | 2020-04-22 12:57 | NURSING ---
AM meds given late at this time due to dialysis treatment
--- NOTE | 2020-04-22 14:56 | CASEMGMT ---
RN CM Note: Referral entered into [facility] website and clinical information faxed. Letter received that first outpt dialysis in [place] would be Tuesday @ 6:30, so would need dialysis @ [facility] on . Schedule will be @ 6:30 am. - Per physicial therapist, patient may need SNF on discharge. He ambulated 5' with walker. SAURAV Easley updated that pt may need SNF referral. Will have PT/OT see pt in am and re-evaluate. If homegoing- will need to discuss HHC with pt. Maye GARRISON RN ACM
--- NOTE | 2020-04-22 15:47 | CASEMGMT ---
ISABEL Note: Call received from Javan @ [facility] [phone]. Referral reviewed with Javan. Date of first dialysis 04.20.20 corrected. No further information is needed. They are working on insurance approval and financial information. Chair time for Tuesday is dependent on approval. Maye GARRISON RN AC
[2020-04-22] MEDS: glipiZIDE 10 MG Tablet PO (16:32)
[2020-04-22 16:35] LABS: Bedside Glucose 263 mg/dL (70-110)
[2020-04-22 20:21] LABS: Bedside Glucose 239 mg/dL (70-110)
--- NOTE | 2020-04-22 23:09 | EKG12_ITS ---
Test Reason : BRADYCARDIA Blood Pressure : / mmHG Vent. Rate : 047 BPM Atrial Rate : 241 BPM P-R Int : 000 ms QRS Dur : 118 ms QT Int : 502 ms P-R-T Axes : 000 -11 077 degrees QTc Int : 444 ms Atrial fibrillation Incomplete left bundle branch block Abnormal ECG When compared with ECG of 18-APR-2020 11:15, Previous ECG has undetermined rhythm, needs review Confirmed by DAVID AVILA, BRADY ([id number]), production editor BYRON MACKAY ([id number]) on 04/25/2020 2:24:37 PM Referred By: ANNI Confirmed By:DIANE HERNANDEZ MD
--- NOTE | 2020-04-22 23:10 | PCM.PN.BLA ---
Progress Note Nurse reports that patient has bradycardia with heart rate in the 40s. Nurse report that patient was dizzy. Per nurse patient is sleeping at this time. Will get a stat EKG. Parameters placed on patient's beta-nicole. STROKE Vital Signs/Narrative: Vital Signs Temp Pulse Resp BP Pulse Ox 04/22/20 20:45 97.5 F L 53 L 16 93/42 L 96 04/22/20 20:39 53 L
[2020-04-23] VITALS (10 sets, daily range): BP systolic 91–113; BP diastolic 43–57; PULSE 43–59; RESP 16–18; TEMP 36.2–36.8; O2SAT 94–96
[2020-04-23 06:46] LABS: Bedside Glucose 126 mg/dL (70-110)
[2020-04-23 07:08] LABS: Absolute Lymphocyte Count 1.17 X10^3/uL (0.83-4.51); Absolute Neutrophil Count 21.3 X10^3/uL (2.0-7.7); Basophil# 0.07 X10^3/uL; Basophil% 0.3 % (0-1); Eosinophil# 0.15 X10^3/uL; Eosinophils% 0.6 % (0-5); Hematocrit 34.1 % (40-54); Hemoglobin 11.3 g/dL (13.0-16.5); Lymphocyte # 1.17 X10^3/ul (4.0); Lymphocyte % 4.7 % (19-41); Mean Corp Hgb Conc 33.1 g/dL (32-36); Mean Corpuscular Hgb 28.9 pg (27.0-32.0); Mean Corpuscular Volume 87.2 fL (80-94); Mean Platelet Vol. 13.2 fl (6.2-12.0); Monocyte# 1.69 X10^3/uL; Monocyte% 6.8 % (0-10); NRBC Flagged by Analyzer 0 % (0-5); Neutrophil # 21.34 X10^3/uL (2.7-7.7); Neutrophil % 85.8 % (47-70); POSITIVE DIFFERENTIAL YES; Platelet Count 113 K/mm3 (150-450); RBC Distribution Width CV 15.7 % (11.6-14.6); RBC Distribution Width SD 50.1 fl (35.1-43.9); Red Blood Count 3.91 M/mm3 (4.6-6.2); White Blood Count 24.9 K/mm3 (4.4-11.0)
[2020-04-23 07:09] LABS: Differential Indicated SCAN CRITERIA MET
[2020-04-23 07:31] LABS: Anion Gap 7 (5-15); BUN 43 mg/dL (7-18); BUN/Creat Ratio 12.1 RATIO (10-20); Calcium,Total 8.1 mg/dL (8.5-10.1); Chloride 99 mmol/L (98-107); Creatinine, Serum 3.54 mg/dL (0.70-1.30); EST Glomerular Filtration Rate 18 mL/min (>60); Est Glom Filt Rate - Afr Amer 21 mL/min (>60); Estimated Creatinine Clearance 16.61 ml/min; Glucose 121 mg/dL (74-106); Potassium 4.2 mmol/L (3.5-5.1); Sodium Level 133 mmol/L (136-145)
--- NOTE | 2020-04-23 08:49 | CASEMGMT ---
SW attempted to talk with patient about a d/c plan. He was sitting up in his chair and did not look like he was feeling well. When SW asked he said he is not doing well. SW introduced self and role at [facility] and he responded Whatever with his eyes closed. SW told him SW will leave him alone for now since he is not feeling well, but SW wanted him to know SW will help him with making plans for discharge. Amy VALDERRAMA MSW
--- NOTE | 2020-04-23 09:10 | PN.CARD_ITS ---
Subjectve: Patient seen and evaluated. Appears to be somewhat lethargic Objective: Vital Signs Temp Pulse Resp BP Pulse Ox 97.1 F L 43 L 16 99/47 L 94 04/23/20 05:35 04/23/20 06:48 04/23/20 05:35 04/23/20 05:35 04/23/20 05:35 Oxygen Flow Rate (L/min) 2 Oxygen Delivery Method Room Air Weight: 253 lb 15.983 oz Body Mass Index (BMI) 36.4 Orthostatic Vital Signs Start: 04/22/20 09:19 Freq: q24h Status: Active Protocol: Activity Type Activity Date Activity User E-Sign Co-Sign Detail Recorded Client Recorded Date Recorded By Document 04/22/20 08:30 AMG [id number] 04/22/20 09:20 AMG 04/22/20 08:30 Orthostatic Vitals Standing -Blood Pressure (90/60-120/80) 107/53 L -Extremity Use Right Arm -Pulse Rate (60-100) 92 Sitting -Blood Pressure (90/60-120/80) 124/52 H -Extremity Use Right Arm -Pulse Rate (60-100) 90 Lying -Blood Pressure (90/60-120/80) 116/55 L -Extremity Use Right Arm -Pulse Rate (60-100) 88 Intake and Output for Last 24 Hours 04/21/20 04/22/20 04/23/20 23:59 23:59 23:59 Intake Total 890 / 990 710 / 810 100 / 100 Output Total 2675 / 2750 5175 / 5200 45 / 45 Balance -1785 / -1760 -4465 / -4390 55 / 55 General: Awake, Alert, Oriented x 3 HEENT: PERRL, EOMI, Sclera Non Icteric Neck: Supple, Good ROM, No Lymph Node Enlargement Lungs: Clear to auscultation Cardiovascular: Regular Rhythm, Normal S1, Normal S2, No Murmurs, No Rubs, No Gallops Vascular: No Carotid Bruits, Normal Femoral Pulses, Normal Radial Pulses, Normal Dorsalis Pedal Pulse, Normal Posterior Tibial Pulses Abdomen: Bowel Sounds Present, Soft, Non Tender, No HSM, No Organomegaly Extremities: No Cyanosis, No Clubbing, No edema Neurological: No Focal Motor or Sensory Deficit 04/23/20 05:40: WBC 24.9 H, RBC 3.91 L, Hgb 11.3 L, Hct 34.1 L, MCV 87.2, MCH 28.9, MCHC 33.1 D, Plt Count 113 L, MPV 13.2 H, Immature Gran % (Auto) 1.800 H, Neut % (Auto) 85.8 H, Lymph % (Auto) 4.7 L, Owen % (Auto) 6.8, Eos % (Auto) 0.6, Baso % (Auto) 0.3, Absolute Neuts (auto) 21.3 H, Nucleated RBC % 0 04/23/20 05:40: Sodium 133 L, Potassium 4.2, Chloride 99, Carbon Dioxide 27.0, Anion Gap 7, BUN 43 H, Creatinine 3.54 H, Est GFR (MDRD) Af Amer 21 L, Est GFR (MDRD) Non-Af 18 L, BUN/Creatinine Ratio 12.1, Glucose 121 H, Calcium 8.1 L Rhythm: EKG: ECHO: Stress Test: Cardiac Cath: PCI: CT Surgery: Holter monitor: EPS: PPM: CXR: Chest CT Scan: Medical Necessity - Tobacco Use Smoking Status: Never smoker Tobacco Use: Non-smoker Assessment/Plan 1. Congestive heart failure with preserved ejection fraction * His ejection fraction by echocardiographic yesterday was noted to be normal. Compared to the previous echocardiogram from 2017. He does not have any evidence of constrictive physiology and his CAT scan did not demonstrate any pericardial thickening. * My suspicion is that the fluid overload status is secondary to his worsening renal function. * He will continue with fluid removal through his renal dialysis. * Probably made mild improvement overnight. * 2. Hypertension * Good control continue current medical therapy * Would not recommend any other major changes * * * Patient did experience some bradycardia last night. Would reduce the dose of the beta-nicole. * Thank you for allowing me to participate in the care of your patient. Please don't hesitate to call if any issues arise.
[2020-04-23] MEDS: Ceftriaxone 1 GM/50 ML BAG IV (09:33)
[2020-04-23] MEDS: Aspirin E.C. 81 MG Tablet PO (09:34)
[2020-04-23] MEDS: amLODIPine 10 MG Tablet PO (09:34)
[2020-04-23] MEDS: 0.9% Saline Lock 10 ML Syringe IV (09:34)
[2020-04-23] MEDS: Acetaminophen 325 MG Tablet 650 MG PO (09:40)
--- NOTE | 2020-04-23 09:41 | NURSING ---
Patient refused to do orthostatic vitals. Patient refusing to wear CHRISTIAN wraps and elevate extremities. Provided education and explanation to patient but he remains noncompliant
[2020-04-23 11:20] LABS: Bedside Glucose 139 mg/dL (70-110)
--- NOTE | 2020-04-23 12:16 | CASEMGMT ---
RN told SAURAV that patient's daughter would like a call from SAURAV regarding discharge planning. SAURAV went to patient's room and obtained his consent to talk with his daughter regarding discharge planning. SAURAV called patient's daughter and left her a voice mail with SAURAV's return number. Amy VALDERRAMA MSW
--- NOTE | 2020-04-23 12:33 | CASEMGMT ---
SAURAV received a return call from patient's daughter, Norah. SAURAV told her therapy is recommending he go somewhere fore rehab. SAURAV explained that him being on dialysis can make it a little more difficult to find a place as transportation is often an issue. SW went over the [facility], and [facility] facilities. She asked how long he would need to go to rehab. SAURAV told her it depends on how long he takes to bounce back. SAURAV told her generally speaking patient's are in rehab for 2-3 weeks. She said she wants to talk with her family and patient. SW gave her SW's number for her to call SAURAV back. Amy VALDERRAMA MSW
--- NOTE | 2020-04-23 12:52 | PCM.PN.REN ---
Patient Problems: Active and Suspected Problems (Last Reviewed 05/04/18 @ 09:[address] Laron Bacon MD) Swelling of both lower extremities (Acute) Hyperkalemia (Acute) Dyspnea (Acute) Subjective: no cp/sob still decreased appetite - Physical Exam Vitals/I&O's: Vital Signs Temp Pulse Resp BP Pulse Ox 97.7 F L 55 L 18 101/43 L 95 04/23/20 09:22 04/23/20 09:29 04/23/20 09:22 04/23/20 09:22 04/23/20 09:22 Oxygen Flow Rate (L/min) 2 Oxygen Delivery Method Room Air Weight: 115.212 kg Body Mass Index (BMI) 36.4 Orthostatic Vital Signs Start: 04/22/20 09:19 Freq: q24h Status: Active Protocol: Activity Type Activity Date Activity User E-Sign Co-Sign Detail Recorded Client Recorded Date Recorded By Document 04/22/20 08:30 AMG [id number] 04/22/20 09:20 AMG 04/22/20 08:30 Orthostatic Vitals Standing -Blood Pressure (90/60-120/80) 107/53 L -Extremity Use Right Arm -Pulse Rate (60-100) 92 Sitting -Blood Pressure (90/60-120/80) 124/52 H -Extremity Use Right Arm -Pulse Rate (60-100) 90 Lying -Blood Pressure (90/60-120/80) 116/55 L -Extremity Use Right Arm -Pulse Rate (60-100) 88 Intake and Output for Last 24 Hours 04/21/20 04/22/20 04/23/20 23:59 23:59 23:59 Intake Total 890 / 990 710 / 810 473.25 / 473.25 Output Total 2675 / 2750 5175 / 5200 45 / 45 Balance -1785 / -1760 -4465 / -4390 428.25 / 428.25 General: Alert, Cooperative HEENT: Atraumatic, Normocephalic Oral: Moist Mucosa Neck: Supple, Trachea Midline Lungs: Clear to auscultation, Normal air movement Cardiovascular: Regular rate, Regular Rhythm Abdomen: Bowel Sounds Present, Soft, Obese Extremities: Edema Laboratory Results 04/22/20 16:30: POC Glucose 263 H 04/22/20 19:57: POC Glucose 239 H 04/23/20 05:40: WBC 24.9 H, RBC 3.91 L, Hgb 11.3 L, Hct 34.1 L, MCV 87.2, MCH 28.9, MCHC 33.1 D, RDW Std Deviation 50.1 H, RDW Coeff of Frances 15.7 H, Plt Count 113 L, MPV 13.2 H, Immature Gran % (Auto) 1.800 H, Neut % (Auto) 85.8 H, Lymph % (Auto) 4.7 L, Laporte % (Auto) 6.8, Eos % (Auto) 0.6, Baso % (Auto) 0.3, Absolute Neuts (auto) 21.3 H, Absolute Lymphs (auto) 1.17, Nucleated RBC % 0, Diff Path Review September04/23/20 05:40: Sodium 133 L, Potassium 4.2, Chloride 99, Carbon Dioxide 27.0, Anion Gap 7, BUN 43 H, Creatinine 3.54 H, Estim Creat Clear Calc 16.61, Est GFR (MDRD) Af Amer 21 L, Est GFR (MDRD) Non-Af 18 L, BUN/Creatinine Ratio 12.1, Glucose 121 H, Calcium 8.1 L 04/23/20 06:41: POC Glucose 126 H 04/23/20 11:04: POC Glucose 139 H Current Medications Acetaminophen (Acetaminophen 325 Mg Tablet) 650 mg PO Q6H PRN PRN PRN Reason: Pain Score 1-10 Last Admin: 04/23/20 09:40 Dose: 650 mg Documented by: Amlodipine Besylate (Amlodipine 10 Mg Tablet) 10 mg PO DAILY [facility] Last Admin: 04/23/20 09:34 Dose: 10 mg Documented by: Aspirin (Aspirin E.C. 81 Mg Tablet) 81 mg PO DAILY [facility] Last Admin: 04/23/20 09:34 Dose: 81 mg Documented by: Cholecalciferol (Cholecalciferol (Vit D3) 1,000 Unit (25mcg)) 5,000 unit PO DAILY [facility] Last Admin: 04/23/20 09:34 Dose: 5,000 unit Documented by: Glipizide (Glipizide 10 Mg Tablet) 10 mg PO BIDAC [facility] Last Admin: 04/23/20 09:21 Dose: Not Given Documented by: Sodium Chloride () 250 mls @ 15 mls/hr IV .[id number] PRN PRN Reason: Saline Flush Last Infusion: 04/23/20 11:07 Dose: 0 mls/hr Documented by: Sodium Chloride () 250 mls @ 15 mls/hr IV .[id number] PRN PRN Reason: Additional IVPB Infusion Ceftriaxone Sodium (Rocephin) 1 gm in 50 mls @ 100 mls/hr IV Q24 CIRO Last Infusion: 04/23/20 10:03 Dose: Infused Documented by: Insulin Glargine (Insulin Glargine 100 Units/Ml Pen) 30 units SC DINNER [facility] Last Admin: 04/22/20 16:32 Dose: 30 u Documented by: Insulin Human Lispro (Insulin Lispro 100 Unit/Ml Insuln.Pen) 0 unit SC ACHS [facility]; Protocol Last Admin: 04/23/20 11:07 Dose: Not Given Documented by: Metoprolol Tartrate (Metoprolol Tartrate 25 Mg Tablet) 12.5 mg PO BID [facility] Last Admin: 04/23/20 09:29 Dose: Not Given Documented by: Nitroglycerin (Nitroglycerin (Inpatient Use) 0.4 Mg Tab.Subl) 0.4 mg SUBLINGUAL Q5M PRN PRN Reason: CARDIAC/CHEST PAIN Ondansetron HCl (Ondansetron 4 Mg/2 Ml Vial) 4 mg IV Q6H PRN PRN PRN Reason: NAUSEA/VOMITING Last Admin: 04/22/20 08:45 Dose: 4 mg Documented by: Sodium Chloride (0.9% Saline Lock 10 Ml Syringe) 10 - 40 ml IV UD PRN PRN Reason: SALINE FLUSH Last Admin: 04/23/20 09:34 Dose: 10 ml Documented by: Medical Necessity - Tobacco Use Smoking Status: Never smoker Tobacco Use: Non-smoker Assessment/Plan All Active Problems (Last Reviewed 05/04/18 @ 09:[address] Laron Bacon MD) Swelling of both lower extremities (Acute) Hyperkalemia (Acute) Dyspnea (Acute) KITTY likely CRS CKD 3 Hypervolemia HFpEF HTN for HD tomorrow.UF as tolerated surgery f/u for TDC prior to d/c Has rij temporary catheter bp ok monitor CM for placement in HD unit
--- NOTE | 2020-04-23 13:27 | PN_ITS ---
Progress Note Patient has dialysis is scheduled for tomorrow. We will plan to tentatively place tunneled dialysis catheter Tuesday morning in the OR depending on work-up for leukocytosis. Tootie Franklin M.D. Pager: [phone] [facility] [address] [place] [address], [address] [place] [id number] Office: [phone] STROKE Vital Signs/Narrative: Vital Signs Pulse 04/23/20 09:29 55 L
--- NOTE | 2020-04-23 13:27 | PCM.PN.BLA ---
Progress Note Patient has dialysis is scheduled for tomorrow. We will plan to tentatively place tunneled dialysis catheter Tuesday morning in the OR depending on work-up for leukocytosis. Tootie Franklin M.D. Pager: [phone] [facility] [address] [place] [address], [address] [place] [id number] Office: [phone] STROKE Vital Signs/Narrative: Vital Signs Pulse 04/23/20 09:29 55 L
[2020-04-23 13:50] LABS: Pathologist Review Reviewed
--- NOTE | 2020-04-23 14:08 | PN_ITS ---
Patient Problems: Active and Suspected Problems (Last Reviewed 05/04/18 @ 09:[address] Laron Bacon MD) Swelling of both lower extremities (Acute) Hyperkalemia (Acute) Dyspnea (Acute) Subjective: Patient seen and examined. He complained of feeling weak today. He denied any fever, chills, shortness of breath, chest pain, pain at site of dialysis catheter. He had no other complaints and review of systems otherwise negative. Patient noted to be bradycardic this morning. WBC has jumped to 24.9. Creatinine is down to 3.54. He is on 2 L of oxygen. Vitals/I&O's: Vital Signs Temp Pulse Resp BP Pulse Ox 97.7 F L 55 L 18 101/43 L 95 04/23/20 09:22 04/23/20 09:29 04/23/20 09:22 04/23/20 09:22 04/23/20 09:22 Oxygen Flow Rate (L/min) 2 Oxygen Delivery Method Room Air Weight: 253 lb 15.983 oz Body Mass Index (BMI) 36.4 Orthostatic Vital Signs Start: 04/22/20 09:19 Freq: q24h Status: Active Protocol: Activity Type Activity Date Activity User E-Sign Co-Sign Detail Recorded Client Recorded Date Recorded By Document 04/22/20 08:30 AMG [id number] 04/22/20 09:20 AMG 04/22/20 08:30 Orthostatic Vitals Standing -Blood Pressure (90/60-120/80 mm Hg) 107/53 L -Extremity Use Right Arm -Pulse Rate (60-100 beats/min) 92 Sitting -Blood Pressure (90/60-120/80 mm Hg) 124/52 H -Extremity Use Right Arm -Pulse Rate (60-100 beats/min) 90 Lying -Blood Pressure (90/60-120/80 mm Hg) 116/55 L -Extremity Use Right Arm -Pulse Rate (60-100 beats/min) 88 Intake and Output for Last 24 Hours 04/21/20 04/22/20 04/23/20 23:59 23:59 23:59 Intake Total 890 / 990 710 / 810 473.25 / 473.25 Output Total 2675 / 2750 5175 / 5200 45 / 45 Balance -1785 / -1760 -4465 / -4390 428.25 / 428.25 General: Alert, Oriented x3, Cooperative, lethargic HEENT: Atraumatic, PERRLA, EOMI, Normocephalic Oral: moist Mucosa Neck: Supple, No JVD, Negative Carotid Bruits Lungs: - - diminished breath sounds bibasally; on 2L of oxygen. Cardiovascular: Regular rate, Regular Rhythm, Normal S1, Normal S2, No murmurs Abdomen: Bowel Sounds Present, Soft, Non Tender, Non-Distended, No Hepato- splenomegaly, Obese Extremities: No clubbing, No cyanosis, Edema - 3+ pitting edema of both extremities Skin: No rashes, No breakdown Musculoskeletal: No Tenderness to Palpation of Joints or Extremities; dialysis catheter in chest Lymphatic: No Cervical, Supraclavicular, or Inguinal Adenopathy Neurological: Cranial nerves II-XII grossly intact, Neuro grossly intact, Motor Exam 5/5 strength throughout Psych/Mental Status: Normal Affect, Appropriate, Alert and oriented to time, place, person, mood and affect Laboratory Results 04/22/20 16:30: POC Glucose 263 H 04/22/20 19:57: POC Glucose 239 H 04/23/20 05:40: WBC 24.9 H, RBC 3.91 L, Hgb 11.3 L, Hct 34.1 L, MCV 87.2, MCH 28.9, MCHC 33.1 D, RDW Std Deviation 50.1 H, RDW Coeff of Frances 15.7 H, Plt Count 113 L, MPV 13.2 H, Immature Gran % (Auto) 1.800 H, Neut % (Auto) 85.8 H, Lymph % (Auto) 4.7 L, Robertson % (Auto) 6.8, Eos % (Auto) 0.6, Baso % (Auto) 0.3, Absolute Neuts (auto) 21.3 H, Absolute Lymphs (auto) 1.17, Nucleated RBC % 0, Diff Path Review Reviewed 04/23/20 05:40: Sodium 133 L, Potassium 4.2, Chloride 99, Carbon Dioxide 27.0, Anion Gap 7, BUN 43 H, Creatinine 3.54 H, Estim Creat Clear Calc 16.61, Est GFR (MDRD) Af Amer 21 L, Est GFR (MDRD) Non-Af 18 L, BUN/Creatinine Ratio 12.1, Glucose 121 H, Calcium 8.1 L 04/23/20 06:41: POC Glucose 126 H 04/23/20 11:04: POC Glucose 139 H Current Medications Acetaminophen (Acetaminophen 325 Mg Tablet) 650 mg PO Q6H PRN PRN PRN Reason: Pain Score 1-10 Last Admin: 04/23/20 09:40 Dose: 650 mg Documented by: Amlodipine Besylate (Amlodipine 10 Mg Tablet) 10 mg PO DAILY [facility] Last Admin: 04/23/20 09:34 Dose: 10 mg Documented by: Aspirin (Aspirin E.C. 81 Mg Tablet) 81 mg PO DAILY [facility] Last Admin: 04/23/20 09:34 Dose: 81 mg Documented by: Cholecalciferol (Cholecalciferol (Vit D3) 1,000 Unit (25mcg)) 5,000 unit PO DAILY [facility] Last Admin: 04/23/20 09:34 Dose: 5,000 unit Documented by: Glipizide (Glipizide 10 Mg Tablet) 10 mg PO BIDAC [facility] Last Admin: 04/23/20 09:21 Dose: Not Given Documented by: Sodium Chloride () 250 mls @ 15 mls/hr IV .[id number] PRN PRN Reason: Saline Flush Last Infusion: 04/23/20 11:07 Dose: 0 mls/hr Documented by: Sodium Chloride () 250 mls @ 15 mls/hr IV .[id number] PRN PRN Reason: Additional IVPB Infusion Ceftriaxone Sodium (Rocephin) 1 gm in 50 mls @ 100 mls/hr IV Q24 [facility] Last Infusion: 04/23/20 10:03 Dose: Infused Documented by: Insulin Glargine (Insulin Glargine 100 Units/Ml Pen) 30 units SC DINNER [facility] Last Admin: 04/22/20 16:32 Dose: 30 u Documented by: Insulin Human Lispro (Insulin Lispro 100 Unit/Ml Insuln.Pen) 0 unit SC ACHS [facility]; Protocol Last Admin: 04/23/20 11:07 Dose: Not Given Documented by: Metoprolol Tartrate (Metoprolol Tartrate 25 Mg Tablet) 12.5 mg PO BID [facility] Last Admin: 04/23/20 09:29 Dose: Not Given Documented by: Nitroglycerin (Nitroglycerin (Inpatient Use) 0.4 Mg Tab.Subl) 0.4 mg SUBLINGUAL Q5M PRN PRN Reason: CARDIAC/CHEST PAIN Ondansetron HCl (Ondansetron 4 Mg/2 Ml Vial) 4 mg IV Q6H PRN PRN PRN Reason: NAUSEA/VOMITING Last Admin: 04/22/20 08:45 Dose: 4 mg Documented by: Sodium Chloride (0.9% Saline Lock 10 Ml Syringe) 10 - 40 ml IV UD PRN PRN Reason: SALINE FLUSH Last Admin: 04/23/20 09:34 Dose: 10 ml Documented by: Medical Necessity - Tobacco Use Smoking Status: Never smoker Tobacco Use: Non-smoker Assessment/Plan All Active Problems (Last Reviewed 05/04/18 @ 09:[address] Laron Bacon MD) Swelling of both lower extremities (Acute) Hyperkalemia (Acute) Dyspnea (Acute) # Acute heart failure with preserved EF * CXR shows pulmonary vascular congestion. * 2D echo showed EF of 53%, with stage 2 diastolic dysfunction and no regional wall motion abnormalities. left atrium moderately enlarged * now on dialysis to help with removal of fluids. having dialysis today * CT chest and abdomen requested per cardiology didnt show any evidence of constrictive pericarditis * covid antigen was positive, but PCR was negative., Patient not in isolation. * troponins x 3 are negative. * cardiology on board * fluid restriction to 1500cc daily. * monitor intake and output * #KITTY on CKD 3 * renal USG showed nonspecific renal parenchymal disease and small left renal cyst. * had temporary dialysis catheter placed for dialysis. * has had 3 sessions of dialysis so far. For dialysis today too * nephrology on board * CR is down to 3.54 today * to have tunneled dialysis catheter placed on Tuesday, per general surgery #UTI: * UA showed 3+ bacteria. urine cultured E coli. on IV ceftriaxone * wbc is up to 24.9 today. Blood cultures ordered * continue IV ceftriaxone for now #Hyperkalemia * resolved. * #Non anion gap metabolic acidosis * resolved. * #Diabetes mellitus: ISS. Accuchecks ACHS and glipizide 10 mg twice daily. Also on lantus #Hypertension: Hold lisinopril on account of KITTY on CKD and hyperkalemia. IV hydralazine as needed. BP has been well controlled. DVT prophylaxis: Lovenox renally dosed CODE STATUS: Full code Disposition: will need placement * Inpatient E&M: 76479 Subs Hosp L2
[2020-04-23] MEDS: glipiZIDE 10 MG Tablet PO (16:46)
[2020-04-23 17:05] LABS: Bedside Glucose 149 mg/dL (70-110)
[2020-04-23] MEDS: Insulin Lispro 100 UNIT/ML INSULN.PEN SC (21:17)
[2020-04-23 22:31] LABS: Bedside Glucose 278 mg/dL (70-110)
[2020-04-24] VITALS (11 sets, daily range): BP systolic 120–135; BP diastolic 54–73; PULSE 51–63; RESP 14–18; TEMP 35.6–36.7; O2SAT 95–96
[2020-04-24 07:30] LABS: Bedside Glucose 226 mg/dL (70-110)
[2020-04-24 07:52] LABS: Absolute Lymphocyte Count 1.14 X10^3/uL (0.83-4.51); Absolute Neutrophil Count 22.7 X10^3/uL (2.0-7.7); Basophil# 0.12 X10^3/uL; Basophil% 0.5 % (0-1); Eosinophil# 0.21 X10^3/uL; Eosinophils% 0.8 % (0-5); Hematocrit 34.9 % (40-54); Hemoglobin 11.5 g/dL (13.0-16.5); Lymphocyte # 1.14 X10^3/ul (4.0); Lymphocyte % 4.3 % (19-41); Mean Corpuscular Hgb 28.6 pg (27.0-32.0); Mean Corpuscular Volume 86.8 fL (80-94); Mean Platelet Vol. 12.9 fl (6.2-12.0); Monocyte# 1.35 X10^3/uL; Monocyte% 5.1 % (0-10); NRBC Flagged by Analyzer 0 % (0-5); POSITIVE DIFFERENTIAL YES; Platelet Count 160 K/mm3 (150-450); RBC Distribution Width CV 15.3 % (11.6-14.6); RBC Distribution Width SD 49.1 fl (35.1-43.9); Red Blood Count 4.02 M/mm3 (4.6-6.2); White Blood Count 26.4 K/mm3 (4.4-11.0)
[2020-04-24 07:58] LABS: Differential Indicated SCAN CRITERIA MET
[2020-04-24] MEDS: glipiZIDE 10 MG Tablet PO ×2 (08:00→16:00)
[2020-04-24 08:17] LABS: ALB/GLOB Ratio 0.7 RATIO (0.9-2.4); AST(SGOT) 46 U/L (15-37); Alanine Aminotransfer ALT/SGPT 70 U/L (16-61); Albumin, Serum 2.3 g/dL (3.2-5.0); Alkaline Phosphatase 167 U/L (45-117); Anion Gap 11 (5-15); BUN 59 mg/dL (7-18); BUN/Creat Ratio 12.6 RATIO (10-20); Calcium,Total 7.5 mg/dL (8.5-10.1); Chloride 98 mmol/L (98-107); Creatinine, Serum 4.67 mg/dL (0.70-1.30); EST Glomerular Filtration Rate 13 mL/min (>60); Est Glom Filt Rate - Afr Amer 16 mL/min (>60); Estimated Creatinine Clearance 12.59 ml/min; Globulin 3.4 g/dL (2.2-4.2); Glucose 248 mg/dL (74-106); Potassium 4.1 mmol/L (3.5-5.1); Protein, Total 5.7 g/dL (6.4-8.2); Sodium Level 132 mmol/L (136-145)
[2020-04-24 08:29] LABS: Platelet Estimate ADEQUATE (ADEQ); Red Cell Morphology NORM C+C NORMAL (NORM C&C); Toxic Granulation 1+
[2020-04-24] MEDS: Aspirin E.C. 81 MG Tablet PO (09:00)
[2020-04-24] MEDS: amLODIPine 10 MG Tablet PO (09:00)
--- NOTE | 2020-04-24 09:02 | CASEMGMT ---
Addendum entered by Brennen Reeves 04/24/20 16:23: Call received back from Javan @ [facility]. He states medical clearance will be obtained once discharge date is known. ISABEL CHENG to fax discharge information to [facility] once it is available. Addendum entered by Brennen Reeves 04/24/20 12:10: Correction: Call placed back to [facility]. Tentative schedule is for //Tue, so tentative 1st OP dialysis treatment/start date would be : 04-29-20 @ 0630. Original Note: ISABEL CHENG NOTE: Call placed to [facility] and spoke w/Javan. He states they have received financial clearance, but medical clearance is still pending. Javan was notified that pt will not be ready for discharge until next week at the earliest. He states will move tentative start of 1st OP dialysis to Tue04-30-20. Layla GARRISON RN, CM
--- NOTE | 2020-04-24 09:41 | PCM.PN.SRG ---
Patient Problems: Active and Suspected Problems (Last Reviewed 05/04/18 @ 09:[address] Laron Bacon MD) Swelling of both lower extremities (Acute) Hyperkalemia (Acute) Dyspnea (Acute) Subjective: Pt getting dialysis, c/o some abd bloating-denies other pain, but is passing gas, WBC still elevated. - Physical Exam Vitals/I&O's: Vital Signs Temp Pulse Resp BP Pulse Ox 97.8 F 60 16 120/58 L 96 04/24/20 03:20 04/24/20 03:20 04/24/20 03:20 04/24/20 03:20 04/24/20 03:20 Oxygen Flow Rate (L/min) 2 Oxygen Delivery Method Room Air Weight: 253 lb 15.983 oz Body Mass Index (BMI) 36.4 Orthostatic Vital Signs Start: 04/22/20 09:19 Freq: q24h Status: Active Protocol: Activity Type Activity Date Activity User E-Sign Co-Sign Detail Recorded Client Recorded Date Recorded By Document 04/22/20 08:30 AMG [id number] 04/22/20 09:20 AMG 04/22/20 08:30 Orthostatic Vitals Standing -Blood Pressure (90/60-120/80) 107/53 L -Extremity Use Right Arm -Pulse Rate (60-100) 92 Sitting -Blood Pressure (90/60-120/80) 124/52 H -Extremity Use Right Arm -Pulse Rate (60-100) 90 Lying -Blood Pressure (90/60-120/80) 116/55 L -Extremity Use Right Arm -Pulse Rate (60-100) 88 Intake and Output for Last 24 Hours 04/22/20 04/23/20 04/24/20 23:59 23:59 23:59 Intake Total 710 / 810 1253.25 / 1253.25 240 / 240 Output Total 5175 / 5200 95 / 95 25 / 25 Balance -4465 / -4390 1158.25 / 1158.25 215 / 215 General: Alert, Oriented x3, Cooperative, No apparent distress Cardiovascular: Regular rate Abdomen: Soft, Non Tender, Non-Distended Extremities: Edema Laboratory Results 04/23/20 05:40: Diff Path Review Reviewed 04/23/20 11:04: POC Glucose 139 H 04/23/20 16:46: POC Glucose 149 H 04/23/20 21:11: POC Glucose 278 H 04/24/20 07:27: POC Glucose 226 H 04/24/20 07:45: WBC 26.4 H, RBC 4.02 L, Hgb 11.5 L, Hct 34.9 L, MCV 86.8, MCH 28.6, MCHC 33.0, RDW Std Deviation 49.1 H, RDW Coeff of Frances 15.3 H, Plt Count 160, MPV 12.9 H, Immature Gran % (Auto) 3.300 H, Neut % (Auto) 86.0 H, Lymph % (Auto) 4.3 L, [place] % (Auto) 5.1, Eos % (Auto) 0.8, Baso % (Auto) 0.5, Absolute Neuts (auto) 22.7 H, Absolute Lymphs (auto) 1.14, Nucleated RBC % 0, Toxic Granulation 1+, Platelet Estimate ADEQUATE, RBC Morphology NORM C+C 04/24/20 07:45: Sodium 132 L, Potassium 4.1, Chloride 98, Carbon Dioxide 23.0, Anion Gap 11, BUN 59 H, Creatinine 4.67 H, Estim Creat Clear Calc 12.59, Est GFR (MDRD) Af Amer 16 L, Est GFR (MDRD) Non-Af 13 L, BUN/Creatinine Ratio 12.6, Glucose 248 H, Calcium 7.5 L, Total Bilirubin 0.60, AST 46 H, ALT 70 H, Alkaline Phosphatase 167 H, Total Protein 5.7 L, Albumin 2.3 L, Globulin 3.4, Albumin/Globulin Ratio 0.7 L Current Medications Acetaminophen (Acetaminophen 325 Mg Tablet) 650 mg PO Q6H PRN PRN PRN Reason: Pain Score 1-10 Last Admin: 04/23/20 09:40 Dose: 650 mg Documented by: Amlodipine Besylate (Amlodipine 10 Mg Tablet) 10 mg PO DAILY [facility] Last Admin: 04/23/20 09:34 Dose: 10 mg Documented by: Aspirin (Aspirin E.C. 81 Mg Tablet) 81 mg PO DAILY [facility] Last Admin: 04/23/20 09:34 Dose: 81 mg Documented by: Cholecalciferol (Cholecalciferol (Vit D3) 1,000 Unit (25mcg)) 5,000 unit PO DAILY [facility] Last Admin: 04/23/20 09:34 Dose: 5,000 unit Documented by: Glipizide (Glipizide 10 Mg Tablet) 10 mg PO BIDAC [facility] Last Admin: 04/23/20 16:46 Dose: 10 mg Documented by: Sodium Chloride () 250 mls @ 15 mls/hr IV .[id number] PRN PRN Reason: Saline Flush Last Infusion: 04/23/20 11:07 Dose: 0 mls/hr Documented by: Sodium Chloride () 250 mls @ 15 mls/hr IV .[id number] PRN PRN Reason: Additional IVPB Infusion Ceftriaxone Sodium (Rocephin) 1 gm in 50 mls @ 100 mls/hr IV Q24 CIRO Last Infusion: 04/23/20 10:03 Dose: Infused Documented by: Insulin Glargine (Insulin Glargine 100 Units/Ml Pen) 30 units SC DINNER [facility] Last Admin: 04/23/20 17:16 Dose: Not Given Documented by: Insulin Human Lispro (Insulin Lispro 100 Unit/Ml Insuln.Pen) 0 unit SC ACHS [facility]; Protocol Last Admin: 04/23/20 21:17 Dose: 4 units Documented by: Metoprolol Tartrate (Metoprolol Tartrate 25 Mg Tablet) 12.5 mg PO BID [facility] Last Admin: 04/23/20 21:17 Dose: Not Given Documented by: Nitroglycerin (Nitroglycerin (Inpatient Use) 0.4 Mg Tab.Subl) 0.4 mg SUBLINGUAL Q5M PRN PRN Reason: CARDIAC/CHEST PAIN Ondansetron HCl (Ondansetron 4 Mg/2 Ml Vial) 4 mg IV Q6H PRN PRN PRN Reason: NAUSEA/VOMITING Last Admin: 04/22/20 08:45 Dose: 4 mg Documented by: Sodium Chloride (0.9% Saline Lock 10 Ml Syringe) 10 - 40 ml IV UD PRN PRN Reason: SALINE FLUSH Last Admin: 04/23/20 09:34 Dose: 10 ml Documented by: Medical Necessity - Tobacco Use Smoking Status: Never smoker Tobacco Use: Non-smoker Assessment/Plan All Active Problems (Last Reviewed 05/04/18 @ 09:[address] Laron Bacon MD) Swelling of both lower extremities (Acute) Hyperkalemia (Acute) Dyspnea (Acute) 84-year-old male with acute on chronic kidney disease request for dialysis catheter Canceled tunneled catheter for tomorrow due to WBC. Pt getting CT a/p today-look for possible source. Will continue to follow and plan to place prior to d/c Tootie Franklin M.D. Pager: [phone] [facility] [address] [place] [address], Outpatient [place], [address] [place] [address] Office: [phone] Inpatient E&M: 60303 Subs Hosp L2
--- NOTE | 2020-04-24 10:04 | PCM.PN.SRG ---
Patient Problems: Active and Suspected Problems (Last Reviewed 05/04/18 @ 09:[address] Laron Bacon MD) Swelling of both lower extremities (Acute) Hyperkalemia (Acute) Dyspnea (Acute) - Physical Exam Vitals/I&O's: Vital Signs Temp Pulse Resp BP Pulse Ox 97.8 F 60 16 120/58 L 96 04/24/20 03:20 04/24/20 03:20 04/24/20 03:20 04/24/20 03:20 04/24/20 03:20 Oxygen Flow Rate (L/min) 2 Oxygen Delivery Method Room Air Weight: 253 lb 15.983 oz Body Mass Index (BMI) 36.4 Orthostatic Vital Signs Start: 04/22/20 09:19 Freq: q24h Status: Active Protocol: Activity Type Activity Date Activity User E-Sign Co-Sign Detail Recorded Client Recorded Date Recorded By Document 04/22/20 08:30 AMG [id number] 04/22/20 09:20 AMG 04/22/20 08:30 Orthostatic Vitals Standing -Blood Pressure (90/60-120/80) 107/53 L -Extremity Use Right Arm -Pulse Rate (60-100) 92 Sitting -Blood Pressure (90/60-120/80) 124/52 H -Extremity Use Right Arm -Pulse Rate (60-100) 90 Lying -Blood Pressure (90/60-120/80) 116/55 L -Extremity Use Right Arm -Pulse Rate (60-100) 88 Intake and Output for Last 24 Hours 04/22/20 04/23/20 04/24/20 23:59 23:59 23:59 Intake Total 710 / 810 1253.25 / 1253.25 240 / 240 Output Total 5175 / 5200 95 / 95 25 / 25 Balance -4465 / -4390 1158.25 / 1158.25 215 / 215 Laboratory Results 04/23/20 05:40: Diff Path Review Reviewed 04/23/20 11:04: POC Glucose 139 H 04/23/20 16:46: POC Glucose 149 H 04/23/20 21:11: POC Glucose 278 H 04/24/20 07:27: POC Glucose 226 H 04/24/20 07:45: WBC 26.4 H, RBC 4.02 L, Hgb 11.5 L, Hct 34.9 L, MCV 86.8, MCH 28.6, MCHC 33.0, RDW Std Deviation 49.1 H, RDW Coeff of Frances 15.3 H, Plt Count 160, MPV 12.9 H, Immature Gran % (Auto) 3.300 H, Neut % (Auto) 86.0 H, Lymph % (Auto) 4.3 L, [place] % (Auto) 5.1, Eos % (Auto) 0.8, Baso % (Auto) 0.5, Absolute Neuts (auto) 22.7 H, Absolute Lymphs (auto) 1.14, Nucleated RBC % 0, Toxic Granulation 1+, Platelet Estimate ADEQUATE, RBC Morphology NORM C+C 04/24/20 07:45: Sodium 132 L, Potassium 4.1, Chloride 98, Carbon Dioxide 23.0, Anion Gap 11, BUN 59 H, Creatinine 4.67 H, Estim Creat Clear Calc 12.59, Est GFR (MDRD) Af Amer 16 L, Est GFR (MDRD) Non-Af 13 L, BUN/Creatinine Ratio 12.6, Glucose 248 H, Calcium 7.5 L, Total Bilirubin 0.60, AST 46 H, ALT 70 H, Alkaline Phosphatase 167 H, Total Protein 5.7 L, Albumin 2.3 L, Globulin 3.4, Albumin/Globulin Ratio 0.7 L Current Medications Acetaminophen (Acetaminophen 325 Mg Tablet) 650 mg PO Q6H PRN PRN PRN Reason: Pain Score 1-10 Last Admin: 04/23/20 09:40 Dose: 650 mg Documented by: Amlodipine Besylate (Amlodipine 10 Mg Tablet) 10 mg PO DAILY [facility] Last Admin: 04/23/20 09:34 Dose: 10 mg Documented by: Aspirin (Aspirin E.C. 81 Mg Tablet) 81 mg PO DAILY [facility] Last Admin: 04/23/20 09:34 Dose: 81 mg Documented by: Cholecalciferol (Cholecalciferol (Vit D3) 1,000 Unit (25mcg)) 5,000 unit PO DAILY [facility] Last Admin: 04/23/20 09:34 Dose: 5,000 unit Documented by: Glipizide (Glipizide 10 Mg Tablet) 10 mg PO BIDAC [facility] Last Admin: 04/23/20 16:46 Dose: 10 mg Documented by: Sodium Chloride () 250 mls @ 15 mls/hr IV .[id number] PRN PRN Reason: Saline Flush Last Infusion: 04/23/20 11:07 Dose: 0 mls/hr Documented by: Sodium Chloride () 250 mls @ 15 mls/hr IV .[id number] PRN PRN Reason: Additional IVPB Infusion Ceftriaxone Sodium (Rocephin) 1 gm in 50 mls @ 100 mls/hr IV Q24 CIRO Last Infusion: 04/23/20 10:03 Dose: Infused Documented by: Insulin Glargine (Insulin Glargine 100 Units/Ml Pen) 30 units SC DINNER [facility] Last Admin: 04/23/20 17:16 Dose: Not Given Documented by: Insulin Human Lispro (Insulin Lispro 100 Unit/Ml Insuln.Pen) 0 unit SC ACHS [facility]; Protocol Last Admin: 04/23/20 21:17 Dose: 4 units Documented by: Metoprolol Tartrate (Metoprolol Tartrate 25 Mg Tablet) 12.5 mg PO BID [facility] Last Admin: 04/23/20 21:17 Dose: Not Given Documented by: Nitroglycerin (Nitroglycerin (Inpatient Use) 0.4 Mg Tab.Subl) 0.4 mg SUBLINGUAL Q5M PRN PRN Reason: CARDIAC/CHEST PAIN Ondansetron HCl (Ondansetron 4 Mg/2 Ml Vial) 4 mg IV Q6H PRN PRN PRN Reason: NAUSEA/VOMITING Last Admin: 04/22/20 08:45 Dose: 4 mg Documented by: Sodium Chloride (0.9% Saline Lock 10 Ml Syringe) 10 - 40 ml IV UD PRN PRN Reason: SALINE FLUSH Last Admin: 04/23/20 09:34 Dose: 10 ml Documented by: Medical Necessity - Tobacco Use Smoking Status: Never smoker Tobacco Use: Non-smoker Assessment/Plan All Active Problems (Last Reviewed 05/04/18 @ 09:[address] Laron Bacon MD) Swelling of both lower extremities (Acute) Hyperkalemia (Acute) Dyspnea (Acute)
--- NOTE | 2020-04-24 10:51 | CT_ITS ---
STUDY: CT ABDOMEN AND PELVIS WITHOUT CONTRAST REASON FOR EXAM: Male, 84 years old. ABDOMINAL DISTENSION, ELEVATED WBC RADIATION DOSAGE (If Supplied By Facility): CTDIvol = ( 20.40 ) mGy, DLP = ( 1116.32 ) mGycm TECHNIQUE: Transaxial images were obtained from the dome of the diaphragm to the symphysis pubis without oral contrast, and without intravenous contrast. Sagittal and coronal images were reconstructed. Individualized dose optimization techniques were used for this CT. COMPARISON: Comparison is made with prior examination dated 04/20/2020. FINDINGS: Stable mild increased linear markings at the lung bases suggestive of linear scarring. Coronary artery calcification. Stable 1 cm ossified granuloma in the medial aspect of the right lobe of the liver at the level of the dome. Minimally dilated gallbladder. Normal spleen. Normal pancreas. There is a small, circumscribed, smooth, low attenuation right adrenal mass, consistent with an adrenal adenoma. This measures 2.2 cm. Normal left adrenal gland. Persistent increased bilateral perinephric stranding worse on the left side. There is mild degree of left hydronephrosis and left hydroureter down to the level of the urinary bladder. Normal visualized stomach. Normal small intestine. Normal colon. The appendix is visualized and appears normal. There is scattered atherosclerotic calcification of the abdominal aorta, without a demonstrated aneurysm. Normal inferior vena cava. Normal retroperitoneum. A CHAMORRO catheter is seen within the urinary bladder. There is diffuse thickening of the bladder wall. There is a right-sided inguinal hernia containing adipose tissue. There are diffuse degenerative changes of the visualized lumbar spine. CT/Abdomen/Pel W ORAL Cont Only IMPRESSION: Stable bilateral perinephric stranding worse on the left side with severe left hydronephrosis and hydroureter down to the insertion into the left side of bladder. There is diffuse bladder wall thickening although the bladder is empty. A CHAMORRO catheter is seen within the urinary bladder. Electronically Signed: Kareem Yao, at 14:27 EST , Service support ,
[2020-04-24] MEDS: Ceftriaxone 1 GM/50 ML BAG IV (11:00)
--- NOTE | 2020-04-24 11:21 | PN_ITS ---
Patient Problems: Active and Suspected Problems (Last Reviewed 05/04/18 @ 09:[address] Laron Bacon MD) Swelling of both lower extremities (Acute) Hyperkalemia (Acute) Dyspnea (Acute) Subjective: Patient seen and examined. He still complains of feeling weak and tired and just did not feel well. He denied any shortness of breath and was concerned that his legs were still swollen. He denied any chest pain, palpitations, dizziness, nausea or vomiting. Review of systems otherwise negative. Has remained hemodynamically stable. However WBC has trended up to 26 today. Creatinine is also up to 4.67. Vitals/I&O's: Vital Signs Temp Pulse Resp BP Pulse Ox 98.1 F 60 16 121/60 H 95 04/24/20 08:00 04/24/20 08:00 04/24/20 08:00 04/24/20 08:00 04/24/20 08:00 General: Alert, Oriented x3, Cooperative, lethargic HEENT: Atraumatic, PERRLA, EOMI, Normocephalic Oral: moist Mucosa Neck: Supple, No JVD, Negative Carotid Bruits Lungs: - - diminished breath sounds bibasally; on 2L of oxygen. Cardiovascular: Regular rate, Regular Rhythm, Normal S1, Normal S2, No murmurs Abdomen: Bowel Sounds Present, Soft, Non Tender, Non-Distended, No Hepato- splenomegaly, Obese Extremities: No clubbing, No cyanosis, Edema - 2+ pitting edema of both extremities Skin: No rashes, No breakdown Musculoskeletal: No Tenderness to Palpation of Joints or Extremities; dialysis catheter in chest Lymphatic: No Cervical, Supraclavicular, or Inguinal Adenopathy Neurological: Cranial nerves II-XII grossly intact, Neuro grossly intact, Motor Exam 5/5 strength throughout Psych/Mental Status: Normal Affect, Appropriate, Alert and oriented to time, place, person, mood and affect Laboratory Results 04/23/20 05:40: Diff Path Review Reviewed 04/23/20 16:46: POC Glucose 149 H 04/23/20 21:11: POC Glucose 278 H 04/24/20 07:27: POC Glucose 226 H 04/24/20 07:45: WBC 26.4 H, RBC 4.02 L, Hgb 11.5 L, Hct 34.9 L, MCV 86.8, MCH 28.6, MCHC 33.0, RDW Std Deviation 49.1 H, RDW Coeff of Frances 15.3 H, Plt Count 160, MPV 12.9 H, Immature Gran % (Auto) 3.300 H, Neut % (Auto) 86.0 H, Lymph % (Auto) 4.3 L, [place] % (Auto) 5.1, Eos % (Auto) 0.8, Baso % (Auto) 0.5, Absolute Neuts (auto) 22.7 H, Absolute Lymphs (auto) 1.14, Nucleated RBC % 0, Toxic Granulation 1+, Platelet Estimate ADEQUATE, RBC Morphology NORM C+C 04/24/20 07:45: Sodium 132 L, Potassium 4.1, Chloride 98, Carbon Dioxide 23.0, Anion Gap 11, BUN 59 H, Creatinine 4.67 H, Estim Creat Clear Calc 12.59, Est GFR (MDRD) Af Amer 16 L, Est GFR (MDRD) Non-Af 13 L, BUN/Creatinine Ratio 12.6, Glucose 248 H, Calcium 7.5 L, Total Bilirubin 0.60, AST 46 H, ALT 70 H, Alkaline Phosphatase 167 H, Total Protein 5.7 L, Albumin 2.3 L, Globulin 3.4, Albumin/Globulin Ratio 0.7 L Current Medications Acetaminophen (Acetaminophen 325 Mg Tablet) 650 mg PO Q6H PRN PRN PRN Reason: Pain Score 1-10 Last Admin: 04/23/20 09:40 Dose: 650 mg Documented by: Amlodipine Besylate (Amlodipine 10 Mg Tablet) 10 mg PO DAILY [facility] Last Admin: 04/23/20 09:34 Dose: 10 mg Documented by: Aspirin (Aspirin E.C. 81 Mg Tablet) 81 mg PO DAILY [facility] Last Admin: 04/23/20 09:34 Dose: 81 mg Documented by: Cholecalciferol (Cholecalciferol (Vit D3) 1,000 Unit (25mcg)) 5,000 unit PO DAILY [facility] Last Admin: 04/23/20 09:34 Dose: 5,000 unit Documented by: Glipizide (Glipizide 10 Mg Tablet) 10 mg PO BIDAC [facility] Last Admin: 04/23/20 16:46 Dose: 10 mg Documented by: Sodium Chloride () 250 mls @ 15 mls/hr IV .[id number] PRN PRN Reason: Saline Flush Last Infusion: 04/23/20 11:07 Dose: 0 mls/hr Documented by: Sodium Chloride () 250 mls @ 15 mls/hr IV .[id number] PRN PRN Reason: Additional IVPB Infusion Ceftriaxone Sodium (Rocephin) 1 gm in 50 mls @ 100 mls/hr IV Q24 CIRO Last Infusion: 04/23/20 10:03 Dose: Infused Documented by: Insulin Glargine (Insulin Glargine 100 Units/Ml Pen) 30 units SC DINNER [facility] Last Admin: 04/23/20 17:16 Dose: Not Given Documented by: Insulin Human Lispro (Insulin Lispro 100 Unit/Ml Insuln.Pen) 0 unit SC ACHS [facility]; Protocol Last Admin: 04/23/20 21:17 Dose: 4 units Documented by: Metoprolol Tartrate (Metoprolol Tartrate 25 Mg Tablet) 12.5 mg PO BID [facility] Last Admin: 04/23/20 21:17 Dose: Not Given Documented by: Nitroglycerin (Nitroglycerin (Inpatient Use) 0.4 Mg Tab.Subl) 0.4 mg SUBLINGUAL Q5M PRN PRN Reason: CARDIAC/CHEST PAIN Ondansetron HCl (Ondansetron 4 Mg/2 Ml Vial) 4 mg IV Q6H PRN PRN PRN Reason: NAUSEA/VOMITING Last Admin: 04/22/20 08:45 Dose: 4 mg Documented by: Sodium Chloride (0.9% Saline Lock 10 Ml Syringe) 10 - 40 ml IV UD PRN PRN Reason: SALINE FLUSH Last Admin: 04/23/20 09:34 Dose: 10 ml Documented by: STROKE Vital Signs/Narrative: Vital Signs Temp Pulse Resp BP Pulse Ox 04/24/20 08:00 98.1 F 60 16 121/60 H 95 Medical Necessity - Tobacco Use Smoking Status: Never smoker Tobacco Use: Non-smoker Assessment/Plan All Active Problems (Last Reviewed 05/04/18 @ 09:[address] Laron Bacon MD) Swelling of both lower extremities (Acute) Hyperkalemia (Acute) Dyspnea (Acute) # Acute heart failure with preserved EF. * 2D echo showed EF of 53%, with stage 2 diastolic dysfunction and no regional wall motion abnormalities. left atrium moderately enlarged * now on dialysis to help with removal of fluids. * CT chest and abdomen requested per cardiology didnt show any evidence of constrictive pericarditis * covid antigen was positive, but PCR was negative., Patient not in isolation. * troponins x 3 are negative. * cardiology on board * fluid restriction to 1500cc daily. * monitor intake and output * #KITTY on CKD 3 * renal USG showed nonspecific renal parenchymal disease and small left renal cyst. * had temporary dialysis catheter placed for dialysis. * having dialysis today. Cr has trended upwards to 4.57 * nephrology on board * placement of tunneled catheter on hold for now, as leucocytosis is being worked up * #Leucocytosis * wbc is up to 26 today. On IV ceftriaxone for UTI. * patient still feels weak * blood cultures pending; he did have a dialysis catheter inserted recently * CT of the abdomen and pelvis with oral contrast ordered to assess for any intraabdominal pathology\ * consult infectious diseases * #UTI: * UA showed 3+ bacteria. urine cultured E coli. on IV ceftriaxone; today is day 5 * wbc up to 26 today. * ID consulted in light of persistent leucocytosis * #Hyperkalemia * resolved. * #Non anion gap metabolic acidosis * resolved. * #Diabetes mellitus: ISS. Accuchecks ACHS and glipizide 10 mg twice daily. Also on lantus #Hypertension: Hold lisinopril on account of KITTY on CKD and hyperkalemia. IV hydralazine as needed. BP has been well controlled. DVT prophylaxis: Lovenox renally dosed CODE STATUS: Full code Disposition: will need placement * Inpatient E&M: [id number] [facility] L[facility]
[2020-04-24] MEDS: Insulin Lispro 100 UNIT/ML INSULN.PEN SC ×3 (12:00→22:05)
[2020-04-24] MEDS: Heparin 10,000 UNITS/10 ML Vial IV (12:06)
--- NOTE | 2020-04-24 12:26 | DIALYSIS ---
HD x 4 hours complete. Tolerated tx well. UF of 3000ml. Used Right IJ catheter. Catheter closed with heparin per fill volume. Caps placed. Dressing is intact. Report was given to ISABEL Magallanes.
--- NOTE | 2020-04-24 12:46 | CASEMGMT ---
Addendum entered by Amy Desir 04/24/20 14:59: SW received a call from Grecia at [facility] and they can take patient when he is ready. Patient's daughter said she was going to talk with patient about this. SW will also talk with patient to make sure he too is in agreement with plan. He did give SW permission yesterday to talk with his daughter about making d/c plans. Amy BERGMAN Original Note: SW received a call from patient's daughter. She said she spoke with the family and if patient is not able to walk he cannot go home by himself so he will need to go to a senior living. She said they would like SW to start the process to get him into [facility]. SAURAV told her SAURAV will start working on this and thank you for the return call. SAURAV faxed referral and will follow up with a phone call in a little bit. Amy BERGMAN
--- NOTE | 2020-04-24 13:36 | PN.RENAL_ITS ---
Patient Problems: Active and Suspected Problems (Last Reviewed 05/04/18 @ 09:[address] Laron Bacon MD) Swelling of both lower extremities (Acute) Hyperkalemia (Acute) Dyspnea (Acute) Subjective: no cp/sob no c/o - Physical Exam Vitals/I&O's: Vital Signs Temp Pulse Resp BP Pulse Ox 96.1 F L 51 L 18 122/54 H 96 04/24/20 12:25 04/24/20 12:25 04/24/20 12:25 04/24/20 12:25 04/24/20 12:25 Oxygen Flow Rate (L/min) 2 Oxygen Delivery Method Room Air Weight: 115.212 kg Body Mass Index (BMI) 36.4 Orthostatic Vital Signs Start: 04/22/20 09:19 Freq: q24h Status: Active Protocol: Activity Type Activity Date Activity User E-Sign Co-Sign Detail Recorded Client Recorded Date Recorded By Document 04/22/20 08:30 AMG [id number] 04/22/20 09:20 AMG 04/22/20 08:30 Orthostatic Vitals Standing -Blood Pressure (90/60-120/80) 107/53 L -Extremity Use Right Arm -Pulse Rate (60-100) 92 Sitting -Blood Pressure (90/60-120/80) 124/52 H -Extremity Use Right Arm -Pulse Rate (60-100) 90 Lying -Blood Pressure (90/60-120/80) 116/55 L -Extremity Use Right Arm -Pulse Rate (60-100) 88 Intake and Output for Last 24 Hours 04/22/20 04/23/20 04/24/20 23:59 23:59 23:59 Intake Total 710 / 810 1253.25 / 1253.25 240 / 240 Output Total 5175 / 5200 95 / 95 25 / 25 Balance -4465 / -4390 1158.25 / 1158.25 215 / 215 General: Alert, Cooperative HEENT: Atraumatic, Normocephalic Oral: Moist Mucosa Neck: Supple, Trachea Midline Lungs: Clear to auscultation, Normal air movement Cardiovascular: Regular rate, Regular Rhythm, Normal S1, Normal S2 Abdomen: Bowel Sounds Present, Soft, Non Tender Extremities: No edema Laboratory Results 04/23/20 05:40: Diff Path Review Reviewed 04/23/20 16:46: POC Glucose 149 H 04/23/20 21:11: POC Glucose 278 H 04/24/20 07:27: POC Glucose 226 H 04/24/20 07:45: WBC 26.4 H, RBC 4.02 L, Hgb 11.5 L, Hct 34.9 L, MCV 86.8, MCH 28.6, MCHC 33.0, RDW Std Deviation 49.1 H, RDW Coeff of Frances 15.3 H, Plt Count 160, MPV 12.9 H, Immature Gran % (Auto) 3.300 H, Neut % (Auto) 86.0 H, Lymph % (Auto) 4.3 L, Long % (Auto) 5.1, Eos % (Auto) 0.8, Baso % (Auto) 0.5, Absolute Neuts (auto) 22.7 H, Absolute Lymphs (auto) 1.14, Nucleated RBC % 0, Toxic Granulation 1+, Platelet Estimate ADEQUATE, RBC Morphology NORM C+C 04/24/20 07:45: Sodium 132 L, Potassium 4.1, Chloride 98, Carbon Dioxide 23.0, Anion Gap 11, BUN 59 H, Creatinine 4.67 H, Estim Creat Clear Calc 12.59, Est GFR (MDRD) Af Amer 16 L, Est GFR (MDRD) Non-Af 13 L, BUN/Creatinine Ratio 12.6, Glucose 248 H, Calcium 7.5 L, Total Bilirubin 0.60, AST 46 H, ALT 70 H, Alkaline Phosphatase 167 H, Total Protein 5.7 L, Albumin 2.3 L, Globulin 3.4, Albumin/Globulin Ratio 0.7 L Current Medications Acetaminophen (Acetaminophen 325 Mg Tablet) 650 mg PO Q6H PRN PRN PRN Reason: Pain Score 1-10 Last Admin: 04/23/20 09:40 Dose: 650 mg Documented by: Amlodipine Besylate (Amlodipine 10 Mg Tablet) 10 mg PO DAILY COUNT INCLUDES THE [facility] Last Admin: 04/24/20 09:00 Dose: 10 mg Documented by: Aspirin (Aspirin E.C. 81 Mg Tablet) 81 mg PO DAILY COUNT INCLUDES THE [facility] Last Admin: 04/24/20 09:00 Dose: 81 mg Documented by: Cholecalciferol (Cholecalciferol (Vit D3) 1,000 Unit (25mcg)) 5,000 unit PO DAILY COUNT INCLUDES THE [facility] Last Admin: 04/23/20 09:34 Dose: 5,000 unit Documented by: Glipizide (Glipizide 10 Mg Tablet) 10 mg PO BIDAC COUNT INCLUDES THE [facility] Last Admin: 04/24/20 08:00 Dose: 10 mg Documented by: Sodium Chloride () 250 mls @ 15 mls/hr IV .[id number] PRN PRN Reason: Saline Flush Last Infusion: 04/23/20 11:07 Dose: 0 mls/hr Documented by: Sodium Chloride () 250 mls @ 15 mls/hr IV .[id number] PRN PRN Reason: Additional IVPB Infusion Ceftriaxone Sodium (Rocephin) 1 gm in 50 mls @ 100 mls/hr IV Q24 COUNT INCLUDES THE [facility] Last Infusion: 04/23/20 10:03 Dose: Infused Documented by: Insulin Glargine (Insulin Glargine 100 Units/Ml Pen) 30 units SC DINNER COUNT INCLUDES THE [facility] Last Admin: 04/23/20 17:16 Dose: Not Given Documented by: Insulin Human Lispro (Insulin Lispro 100 Unit/Ml Insuln.Pen) 0 unit SC ACHS COUNT INCLUDES THE [facility]; Protocol Last Admin: 04/24/20 12:06 Dose: Not Given Documented by: Metoprolol Tartrate (Metoprolol Tartrate 25 Mg Tablet) 12.5 mg PO BID COUNT INCLUDES THE [facility] Last Admin: 04/24/20 12:08 Dose: Not Given Documented by: Nitroglycerin (Nitroglycerin (Inpatient Use) 0.4 Mg Tab.Subl) 0.4 mg SUBLINGUAL Q5M PRN PRN Reason: CARDIAC/CHEST PAIN Ondansetron HCl (Ondansetron 4 Mg/2 Ml Vial) 4 mg IV Q6H PRN PRN PRN Reason: NAUSEA/VOMITING Last Admin: 04/22/20 08:45 Dose: 4 mg Documented by: Sodium Chloride (0.9% Saline Lock 10 Ml Syringe) 10 - 40 ml IV UD PRN PRN Reason: SALINE FLUSH Last Admin: 04/23/20 09:34 Dose: 10 ml Documented by: Medical Necessity - Tobacco Use Smoking Status: Never smoker Tobacco Use: Non-smoker Assessment/Plan All Active Problems (Last Reviewed 05/04/18 @ 09:[address] Laron Bacon MD) Swelling of both lower extremities (Acute) Hyperkalemia (Acute) Dyspnea (Acute) KITTY likely CRS CKD 3 Hypervolemia HFpEF HTN for CT today with po contrast 3 L net UF isolated UF tomorrow still significant edema surgery f/u for TDC prior to d/c Has rij temporary catheter bp ok monitor CM for placement in HD unit
--- NOTE | 2020-04-24 13:39 | CON.PCM_ITS ---
Consultation - Renal 04/24/20 PCP/ Referring MD: Requesting physician: [] Primary care physician: Dr. Jean Yan MD Reason for Consultation:: esrd - History of Present Illness History of Present Illness: The patient is a 84 year old M with past medical history of uncontrolled hypertension ESRD on hemodialysis who presented to the emergency room with chief complaint of shortness of breath that started last night. His weight is 61 kg and his dry weight is 57 kg. Initially his pulse ox was 93% on room air but he developed worsening shortness of breath and his oxygen saturation dropped to 88% on 2 L of oxygen. He was given Lasix 60 mg IV in the emergency room. He has some dry cough with occasional clear sputum. There is no change in the cough pattern recently. He denies any chest pain fever chills hemoptysis nausea vomiting diarrhea abdominal pain discharge from the right IJ tunneled dialysis catheter. He was found to have pulmonary edema on the chest x-ray done in the emergency room. He has no other complaints. 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 - Allergies Allergies: Allergies pioglitazone [From Actos] Allergy (Verified 05/18/19 09:24) fatigue simvastatin [From Zocor] Allergy (Verified 05/18/19 09:24) myalgia sitagliptin [From Januvia] Allergy (Verified 05/18/19 09:24) unknown - Current Medications Current Medications: Current Medications Acetaminophen (Acetaminophen 325 Mg Tablet) 650 mg PO Q6H PRN PRN PRN Reason: Pain Score 1-10 Last Admin: 04/23/20 09:40 Dose: 650 mg Documented by: Amlodipine Besylate (Amlodipine 10 Mg Tablet) 10 mg PO DAILY [facility] Last Admin: 04/24/20 09:00 Dose: 10 mg Documented by: Aspirin (Aspirin E.C. 81 Mg Tablet) 81 mg PO DAILY [facility] Last Admin: 04/24/20 09:00 Dose: 81 mg Documented by: Cholecalciferol (Cholecalciferol (Vit D3) 1,000 Unit (25mcg)) 5,000 unit PO DAILY [facility] Last Admin: 04/23/20 09:34 Dose: 5,000 unit Documented by: Glipizide (Glipizide 10 Mg Tablet) 10 mg PO BIDAC [facility] Last Admin: 04/24/20 08:00 Dose: 10 mg Documented by: Sodium Chloride () 250 mls @ 15 mls/hr IV .[id number] PRN PRN Reason: Saline Flush Last Infusion: 04/23/20 11:07 Dose: 0 mls/hr Documented by: Sodium Chloride () 250 mls @ 15 mls/hr IV .[id number] PRN PRN Reason: Additional IVPB Infusion Ceftriaxone Sodium (Rocephin) 1 gm in 50 mls @ 100 mls/hr IV Q24 CIRO Last Infusion: 04/23/20 10:03 Dose: Infused Documented by: Insulin Glargine (Insulin Glargine 100 Units/Ml Pen) 30 units SC DINNER [facility] Last Admin: 04/23/20 17:16 Dose: Not Given Documented by: Insulin Human Lispro (Insulin Lispro 100 Unit/Ml Insuln.Pen) 0 unit SC ACHS [facility]; Protocol Last Admin: 04/24/20 12:06 Dose: Not Given Documented by: Metoprolol Tartrate (Metoprolol Tartrate 25 Mg Tablet) 12.5 mg PO BID [facility] Last Admin: 04/24/20 12:08 Dose: Not Given Documented by: Nitroglycerin (Nitroglycerin (Inpatient Use) 0.4 Mg Tab.Subl) 0.4 mg SUBLINGUAL Q5M PRN PRN Reason: CARDIAC/CHEST PAIN Ondansetron HCl (Ondansetron 4 Mg/2 Ml Vial) 4 mg IV Q6H PRN PRN PRN Reason: NAUSEA/VOMITING Last Admin: 04/22/20 08:45 Dose: 4 mg Documented by: Sodium Chloride (0.9% Saline Lock 10 Ml Syringe) 10 - 40 ml IV UD PRN PRN Reason: SALINE FLUSH Last Admin: 04/23/20 09:34 Dose: 10 ml Documented by: - Past Medical History Past Medical History (Chronic Problems): Chronic Problems (Last Reviewed 05/04/18 @ 09:[address] 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 Laron Bacon MD) Mother Hypertension Father Diabetes Review of Systems Eyes: Reports: - - The review of systems is otherwise negative unless noted in the HPI. Patient Problems: Active and Suspected Problems (Last Reviewed 05/04/18 @ 09:[address] Laron Bacon MD) Swelling of both lower extremities (Acute) Hyperkalemia (Acute) Dyspnea (Acute) - Physical Exam Vitals/I&O's: Vital Signs Temp Pulse Resp BP Pulse Ox 96.1 F L 51 L 18 122/54 H 96 04/24/20 12:25 04/24/20 12:25 04/24/20 12:25 04/24/20 12:25 04/24/20 12:25 Oxygen Flow Rate (L/min) 2 Oxygen Delivery Method Room Air Weight: 115.212 kg Body Mass Index (BMI) 36.4 Orthostatic Vital Signs Start: 04/22/20 09:19 Freq: q24h Status: Active Protocol: Activity Type Activity Date Activity User E-Sign Co-Sign Detail Recorded Client Recorded Date Recorded By Document 04/22/20 08:30 AMG [id number] 04/22/20 09:20 AMG 04/22/20 08:30 Orthostatic Vitals Standing -Blood Pressure (90/60-120/80) 107/53 L -Extremity Use Right Arm -Pulse Rate (60-100) 92 Sitting -Blood Pressure (90/60-120/80) 124/52 H -Extremity Use Right Arm -Pulse Rate (60-100) 90 Lying -Blood Pressure (90/60-120/80) 116/55 L -Extremity Use Right Arm -Pulse Rate (60-100) 88 Intake and Output for Last 24 Hours 04/22/20 04/23/20 04/24/20 23:59 23:59 23:59 Intake Total 710 / 810 1253.25 / 1253.25 240 / 240 Output Total 5175 / 5200 95 / 95 25 / 25 Balance -4465 / -4390 1158.25 / 1158.25 215 / 215 General: Alert, Cooperative HEENT: Atraumatic, Normocephalic Neck: Supple, Trachea Midline Lungs: Clear to auscultation, Normal air movement Cardiovascular: Regular rate, Regular Rhythm Abdomen: Bowel Sounds Present, Soft, Non Tender Extremities: No clubbing, No edema Laboratory Results 04/23/20 05:40: Diff Path Review Reviewed 04/23/20 16:46: POC Glucose 149 H 04/23/20 21:11: POC Glucose 278 H 04/24/20 07:27: POC Glucose 226 H 04/24/20 07:45: WBC 26.4 H, RBC 4.02 L, Hgb 11.5 L, Hct 34.9 L, MCV 86.8, MCH 28.6, MCHC 33.0, RDW Std Deviation 49.1 H, RDW Coeff of Frances 15.3 H, Plt Count 160, MPV 12.9 H, Immature Gran % (Auto) 3.300 H, Neut % (Auto) 86.0 H, Lymph % (Auto) 4.3 L, Petroleum % (Auto) 5.1, Eos % (Auto) 0.8, Baso % (Auto) 0.5, Absolute Neuts (auto) 22.7 H, Absolute Lymphs (auto) 1.14, Nucleated RBC % 0, Toxic Granulation 1+, Platelet Estimate ADEQUATE, RBC Morphology NORM C+C 04/24/20 07:45: Sodium 132 L, Potassium 4.1, Chloride 98, Carbon Dioxide 23.0, Anion Gap 11, BUN 59 H, Creatinine 4.67 H, Estim Creat Clear Calc 12.59, Est GFR (MDRD) Af Amer 16 L, Est GFR (MDRD) Non-Af 13 L, BUN/Creatinine Ratio 12.6, Glucose 248 H, Calcium 7.5 L, Total Bilirubin 0.60, AST 46 H, ALT 70 H, Alkaline Phosphatase 167 H, Total Protein 5.7 L, Albumin 2.3 L, Globulin 3.4, Albumin/Globulin Ratio 0.7 L Current Medications Acetaminophen (Acetaminophen 325 Mg Tablet) 650 mg PO Q6H PRN PRN PRN Reason: Pain Score 1-10 Last Admin: 04/23/20 09:40 Dose: 650 mg Documented by: Amlodipine Besylate (Amlodipine 10 Mg Tablet) 10 mg PO DAILY [facility] Last Admin: 04/24/20 09:00 Dose: 10 mg Documented by: Aspirin (Aspirin E.C. 81 Mg Tablet) 81 mg PO DAILY [facility] Last Admin: 04/24/20 09:00 Dose: 81 mg Documented by: Cholecalciferol (Cholecalciferol (Vit D3) 1,000 Unit (25mcg)) 5,000 unit PO DAILY [facility] Last Admin: 04/23/20 09:34 Dose: 5,000 unit Documented by: Glipizide (Glipizide 10 Mg Tablet) 10 mg PO BIDAC [facility] Last Admin: 04/24/20 08:00 Dose: 10 mg Documented by: Sodium Chloride () 250 mls @ 15 mls/hr IV .[id number] PRN PRN Reason: Saline Flush Last Infusion: 04/23/20 11:07 Dose: 0 mls/hr Documented by: Sodium Chloride () 250 mls @ 15 mls/hr IV .[id number] PRN PRN Reason: Additional IVPB Infusion Ceftriaxone Sodium (Rocephin) 1 gm in 50 mls @ 100 mls/hr IV Q24 [facility] Last Infusion: 04/23/20 10:03 Dose: Infused Documented by: Insulin Glargine (Insulin Glargine 100 Units/Ml Pen) 30 units SC DINNER [facility] Last Admin: 04/23/20 17:16 Dose: Not Given Documented by: Insulin Human Lispro (Insulin Lispro 100 Unit/Ml Insuln.Pen) 0 unit SC ACHS [facility]; Protocol Last Admin: 04/24/20 12:06 Dose: Not Given Documented by: Metoprolol Tartrate (Metoprolol Tartrate 25 Mg Tablet) 12.5 mg PO BID [facility] Last Admin: 04/24/20 12:08 Dose: Not Given Documented by: Nitroglycerin (Nitroglycerin (Inpatient Use) 0.4 Mg Tab.Subl) 0.4 mg SUBLINGUAL Q5M PRN PRN Reason: CARDIAC/CHEST PAIN Ondansetron HCl (Ondansetron 4 Mg/2 Ml Vial) 4 mg IV Q6H PRN PRN PRN Reason: NAUSEA/VOMITING Last Admin: 04/22/20 08:45 Dose: 4 mg Documented by: Sodium Chloride (0.9% Saline Lock 10 Ml Syringe) 10 - 40 ml IV UD PRN PRN Reason: SALINE FLUSH Last Admin: 04/23/20 09:34 Dose: 10 ml Documented by: Assessment/Plan All Active Problems (Last Reviewed 05/04/18 @ 09:[address] Laron Bacon MD) Swelling of both lower extremities (Acute) Hyperkalemia (Acute) Dyspnea (Acute) ESRD for dialysis today and tomorrow. UF as maximally tolerated. Dry weight is 57 kg.RIJ TDC. HTN resume home blood pressure meds UF as tolerated reevaluate after dialysis. Anemia of CKD start Epogen if prolonged hospital stay. Pulmonary edema UF as tolerated low-salt diet and fluid restriction reinforced. Above assessment and plan was discussed at length with the patient who voiced understanding and agrees to proceed with the plan as outlined above. He was given the opportunity to ask questions and stated that those were answered to his satisfaction. Thank you very much for allowing me to participate in the care of this patient. Please do not hesitate to call if you have any questions or concerns.
--- NOTE | 2020-04-24 15:31 | PCM.PN.ID ---
Patient Problems: Active and Suspected Problems (Last Reviewed 05/04/18 @ 09:[address] Laron Bacon MD) Swelling of both lower extremities (Acute) Hyperkalemia (Acute) Dyspnea (Acute) Subjective: Feeling ok this afternoon, just back from CT scan. No fever, no cough or SOB, no n/v/d, no abd pain. - Physical Exam Vitals/I&O's: Vital Signs Temp Pulse Resp BP Pulse Ox 97.8 F 53 L 14 135/73 H 96 04/24/20 16:34 04/24/20 15:00 04/24/20 14:35 04/24/20 14:35 04/24/20 16:09 Oxygen Flow Rate (L/min) 2 Oxygen Delivery Method Room Air Weight: 115.212 kg Body Mass Index (BMI) 36.4 Orthostatic Vital Signs Start: 04/22/20 09:19 Freq: q24h Status: Active Protocol: Activity Type Activity Date Activity User E-Sign Co-Sign Detail Recorded Client Recorded Date Recorded By Document 04/22/20 08:30 AMG [id number] 04/22/20 09:20 AMG 04/22/20 08:30 Orthostatic Vitals Standing -Blood Pressure (90/60-120/80) 107/53 L -Extremity Use Right Arm -Pulse Rate (60-100) 92 Sitting -Blood Pressure (90/60-120/80) 124/52 H -Extremity Use Right Arm -Pulse Rate (60-100) 90 Lying -Blood Pressure (90/60-120/80) 116/55 L -Extremity Use Right Arm -Pulse Rate (60-100) 88 Intake and Output for Last 24 Hours 04/22/20 04/23/20 04/24/20 23:59 23:59 23:59 Intake Total 710 / 810 1253.25 / 1253.25 390 / 390 Output Total 5175 / 5200 95 / 95 25 / 25 Balance -4465 / -4390 1158.25 / 1158.25 365 / 365 General: Alert, Cooperative, No apparent distress Lungs: Clear to auscultation, Normal air movement Cardiovascular: Regular rate, Regular Rhythm Abdomen: Soft, Non Tender, Non-Distended Skin: No rashes Laboratory Results 04/23/20 21:11: POC Glucose 278 H 04/24/20 07:27: POC Glucose 226 H 04/24/20 07:45: WBC 26.4 H, RBC 4.02 L, Hgb 11.5 L, Hct 34.9 L, MCV 86.8, MCH 28.6, MCHC 33.0, RDW Std Deviation 49.1 H, RDW Coeff of Frances 15.3 H, Plt Count 160, MPV 12.9 H, Immature Gran % (Auto) 3.300 H, Neut % (Auto) 86.0 H, Lymph % (Auto) 4.3 L, Mccracken % (Auto) 5.1, Eos % (Auto) 0.8, Baso % (Auto) 0.5, Absolute Neuts (auto) 22.7 H, Absolute Lymphs (auto) 1.14, Nucleated RBC % 0, Toxic Granulation 1+, Platelet Estimate ADEQUATE, RBC Morphology NORM C+C 04/24/20 07:45: Sodium 132 L, Potassium 4.1, Chloride 98, Carbon Dioxide 23.0, Anion Gap 11, BUN 59 H, Creatinine 4.67 H, Estim Creat Clear Calc 12.59, Est GFR (MDRD) Af Amer 16 L, Est GFR (MDRD) Non-Af 13 L, BUN/Creatinine Ratio 12.6, Glucose 248 H, Calcium 7.5 L, Total Bilirubin 0.60, AST 46 H, ALT 70 H, Alkaline Phosphatase 167 H, Total Protein 5.7 L, Albumin 2.3 L, Globulin 3.4, Albumin/Globulin Ratio 0.7 L Current Medications Acetaminophen (Acetaminophen 325 Mg Tablet) 650 mg PO Q6H PRN PRN PRN Reason: Pain Score 1-10 Last Admin: 04/23/20 09:40 Dose: 650 mg Documented by: Amlodipine Besylate (Amlodipine 10 Mg Tablet) 10 mg PO DAILY [facility] Last Admin: 04/24/20 09:00 Dose: 10 mg Documented by: Aspirin (Aspirin E.C. 81 Mg Tablet) 81 mg PO DAILY [facility] Last Admin: 04/24/20 09:00 Dose: 81 mg Documented by: Cholecalciferol (Cholecalciferol (Vit D3) 1,000 Unit (25mcg)) 5,000 unit PO DAILY [facility] Last Admin: 04/24/20 11:00 Dose: 5,000 unit Documented by: Glipizide (Glipizide 10 Mg Tablet) 10 mg PO BIDAC [facility] Last Admin: 04/24/20 16:00 Dose: 10 mg Documented by: Sodium Chloride () 250 mls @ 15 mls/hr IV .[id number] PRN PRN Reason: Saline Flush Last Infusion: 04/23/20 11:07 Dose: 0 mls/hr Documented by: Sodium Chloride () 250 mls @ 15 mls/hr IV .[id number] PRN PRN Reason: Additional IVPB Infusion Ceftriaxone Sodium (Rocephin) 1 gm in 50 mls @ 100 mls/hr IV Q24 CIRO Last Infusion: 04/24/20 15:56 Dose: Infused Documented by: Insulin Glargine (Insulin Glargine 100 Units/Ml Pen) 30 units SC DINNER [facility] Last Admin: 04/24/20 16:00 Dose: 30 u Documented by: Insulin Human Lispro (Insulin Lispro 100 Unit/Ml Insuln.Pen) 0 unit SC ACHS [facility]; Protocol Last Admin: 04/24/20 15:59 Dose: 1 units Documented by: Metoprolol Tartrate (Metoprolol Tartrate 25 Mg Tablet) 12.5 mg PO BID [facility] Last Admin: 04/24/20 12:08 Dose: Not Given Documented by: Nitroglycerin (Nitroglycerin (Inpatient Use) 0.4 Mg Tab.Subl) 0.4 mg SUBLINGUAL Q5M PRN PRN Reason: CARDIAC/CHEST PAIN Ondansetron HCl (Ondansetron 4 Mg/2 Ml Vial) 4 mg IV Q6H PRN PRN PRN Reason: NAUSEA/VOMITING Last Admin: 04/22/20 08:45 Dose: 4 mg Documented by: Sodium Chloride (0.9% Saline Lock 10 Ml Syringe) 10 - 40 ml IV UD PRN PRN Reason: SALINE FLUSH Last Admin: 04/23/20 09:34 Dose: 10 ml Documented by: Medical Necessity - Tobacco Use Smoking Status: Never smoker Tobacco Use: Non-smoker Route of nutrition/ use of supplements: [] Nutritional Intake: [] IV Site: [] Lozano Catheter: [] - Assessment/Plan Antibiotics: [] Assessment/Plan: [] Active and Suspected Problems (Last Reviewed 05/04/18 @ 09:[address] Laron Bacon MD) Swelling of both lower extremities (Acute) Hyperkalemia (Acute) Dyspnea (Acute) KITTY, BLE edema - now on HD. Had false (+) covid Ag on admit, pcr neg. Now with rising wbc, otherwise asymptomatic. Has been on ceftriaxone since admit 04/20, ucx with ecoli. CT with hydronephrosis, urology to see. Will follow, aidan Orozco.
--- NOTE | 2020-04-24 17:35 | PCM.CONS.U ---
Problem List (1) Acute on chronic renal failure Status: Chronic Qualifiers: Acute renal failure type: unspecified Reason for Consult Date of Consultation: 04/24/20 Reason for Consultation: Hydronephrosis on CAT scan History of Present Illness: The patient is a 84 year old male who presented to the hospital in acute renal failure with very low urine output initial ultrasound was done demonstrated no hydronephrosis in the left and right kidney. He denies having any prostate surgeries or procedures in the past denies having prostate cancer. No gross hematuria. No urinary tract infections. Just presented to the hospital with swollen legs. He was found to have renal insufficiency and acute kidney failure. Apparently has been started on dialysis he has a tunneled catheter in place at this point. Repeat CAT scan was done just recently I looked at the images right kidney is looks okay with no hydronephrosis the left kidney there is some mild stranding and some mild hydronephrosis of the left kidney and ureter but no blockage in the ureter. He has a catheter in place. Prostate is small. He denies any history of prostate cancer. No recent PSA on file. Past Medical History Past Medical History (Chronic Problems): Chronic Problems (Last Reviewed 05/04/18 @ 09:[address] 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 Laron Bacon MD) High risk medication use (Chronic) Z79.899 HLD (hyperlipidemia) (Chronic) E78.5 HTN (hypertension) (Chronic) I10 Chronic kidney disease, stage III (moderate) (Chronic) N18.3 Left bundle-branch block (Chronic) I44.7 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 (Chronic) I44.1 Abnormal electrocardiogram (Chronic) R94.31 Allergies pioglitazone [From Actos] Allergy (Verified 05/18/19 09:24) fatigue simvastatin [From Zocor] Allergy (Verified 05/18/19 09:24) myalgia sitagliptin [From Januvia] Allergy (Verified 05/18/19 09:24) unknown Home Medications: Ambulatory Orders Medication Instructions Recorded amlodipine 10 mg tablet 10 mg PO QDAY 05/12/17 aspirin 81 mg tablet,delayed 81 mg PO QDAY 05/12/17 release lisinopril 40 mg tablet 40 mg PO QDAY 05/12/17 glipizide 10 mg tablet 10 mg PO BID tab 05/18/19 Insulin Glargine [Lantus (BKC)] 30 units SC DINNER 04/18/20 Metoprolol Tartrate 12.5 mg PO BID 04/18/20 Surgical History: Surgical History (Last Reviewed 05/04/18 @ 09:[address] Laron Bacon MD) History of appendectomy Z98.890, Z90.49 History of inguinal hernia repair Z98.890, Z87.19 1970s Surgical History: no surgical history Psychiatric History: No pertinent psych hx Lives: Spouse/ Significant Other Smoking Status: Never smoker Tobacco Use: Non-smoker Alcohol: None Drugs: None - *Family History Maternal Family History: Family History (Last Reviewed 05/04/18 @ 09:[address] Laron Bacon MD) Mother Hypertension Father Diabetes Review of Systems Constitutional: Denies: Chills, Fever, Weight Change HEENT: Denies: Head Aches, Sinus Congestion, Sinus Drainage Cardiovascular: Denies: Chest Pain, Palpitations Respiratory: Denies: Cough, Shortness of breath at rest, Sputum production Gastrointestinal: Denies: Abdominal Pain, Nausea, Vomiting Genitourinary: Denies: Dysuria Musculoskeletal: Denies: Joint Pain, Joint Tenderness Skin: Denies: Rash, Wounds Neurological: Denies: Numbness, Tingling, Focal weakness Psychiatric: Denies: Anxiety, Depression, Homicidal Ideations, Suicidal Ideations Hematologic/ Lymphatic: Denies: Easy Bruising, Easy Bleeding Physical Exam - Physical Exam Vital Signs Temp 97.8 F 04/24/20 16:34 Pulse 53 L 04/24/20 15:00 Resp 14 04/24/20 14:35 BP 135/73 H 04/24/20 14:35 Pulse Ox 96 04/24/20 16:09 Intake & Output 04/22/20 04/23/20 04/24/20 23:59 23:59 23:59 Intake Total 710 / 810 1253.25 / 1253.25 290 / 290 Output Total 5175 / 5200 95 / 95 25 / 25 Balance -4465 / -4390 1158.25 / 1158.25 265 / 265 Weight: 115.212 kg 115.212 kg Intake: Oral 660 / 760 1180 / 1180 240 / 240 Intake, IV Amount 50 / 50 73.25 / 73.25 50 / 50 0.9% Normal Saline 250 ML @ 15 23.25 / 23.25 mls/hr IV .[id number] PRN Rx#: [id number] Rocephin 1 gm In 50 ml @ 100 50 / 50 50 / 50 50 / 50 mls/hr IV Q24 CIRO Rx#:[id number] Output: Urine 175 / 200 95 / 95 25 / 25 Dialysate 5000 / 5000 General: Alert HEENT: Atraumatic Oral: Moist Mucosa Neck: Supple Lungs: Normal air movement Cardiovascular: Regular rate Laboratory Tests Past 24 Hrs 04/24/20 04/24/20 07:45 07:45 WBC 26.4 H RBC 4.02 L Hgb 11.5 L Hct 34.9 L MCV 86.8 MCH 28.6 MCHC 33.0 RDW Std Deviation 49.1 H RDW Coeff of Frances 15.3 H Plt Count 160 MPV 12.9 H Immature Gran % (Auto) 3.300 H Neut % (Auto) 86.0 H Lymph % (Auto) 4.3 L [place] % (Auto) 5.1 Eos % (Auto) 0.8 Baso % (Auto) 0.5 Absolute Neuts (auto) 22.7 H Absolute Lymphs (auto) 1.14 Nucleated RBC % 0 Toxic Granulation 1+ Platelet Estimate ADEQUATE RBC Morphology NORM C+C Sodium 132 L Potassium 4.1 Chloride 98 Carbon Dioxide 23.0 Anion Gap 11 BUN 59 H Creatinine 4.67 H Estim Creat Clear Calc 12.59 Est GFR (MDRD) Af Amer 16 L Est GFR (MDRD) Non-Af 13 L BUN/Creatinine Ratio 12.6 Glucose 248 H Calcium 7.5 L Total Bilirubin 0.60 AST 46 H ALT 70 H Alkaline Phosphatase 167 H Total Protein 5.7 L Albumin 2.3 L Globulin 3.4 Albumin/Globulin Ratio 0.7 L Assessment/Plan All Active Problems (Last Reviewed 05/04/18 @ 09:[address] Laron Bacon MD) Swelling of both lower extremities (Acute) Hyperkalemia (Acute) Dyspnea (Acute) Pleasant elderly male with multiple medical problems whose recently started on dialysis for acute kidney failure. He has some mild hydronephrosis in the left side but I do not think this is enough to explain was causing his his kidney failure I do not think any intervention or stent or any procedures are necessary. Prostate feels small catheter is in place urine output is very low. My only question would be when to remove his catheter unless urine output to be monitored to see if it will improve. Prior to discharge I would remove the catheter. He did not have any problems urinating for he came in just had a low urine output from kidney failure. Only mild left hydronephrosis I think for now this does not explain his kidney failure recommend outpatient follow-up in my office once discharged from the hospital we could do another CAT scan to follow-up in the hydronephrosis possible retrograde pyelogram or intervention to further evaluate it but given the acuity situation and I can recommend any procedures at this point. Call me with questions.
[2020-04-24 22:15] LABS: Bedside Glucose 250 mg/dL (70-110)
[2020-04-24 23:41] LABS: Bacteria 0 SEEN /hpf (None Seen); Mucous, Urine 0 SEEN /hpf (<or=2+)
[2020-04-24 23:49] LABS: Color, Urine Yellow (Yellow); Glucose, Dipstick Normal (Normal); Ketone-Dipstick 5 mg/dl (Negative); Leukocyte Esterase-Dipstick 500 /ul (Negative); Nitrite-Dipstick Negative (Negative); Occult Blood-Urine 25 /ul (Negative); Protein-Dipstick 30 mg/dl (Negative); Urine Bilirubin Dipstick Negative (Negative); Urine Clarity Sl. Cloudy (Clear); Urine Urobilinogen 1 mg/dl (Normal)
[2020-04-25] VITALS (12 sets, daily range): BP systolic 125–142; BP diastolic 49–82; PULSE 42–71; RESP 16–18; TEMP 36.4–37; O2SAT 91–93
[2020-04-25 00:16] LABS: Red Blood Cells-Urine 5-10 SEEN /hpf (0-5); White Blood Cells >100 SEEN /hpf (0-5)
[2020-04-25 00:17] LABS: Squamous Epithelial Cells - UA 5-10 SEEN /hpf (0-5)
[2020-04-25 05:45] LABS: Hematocrit 33.6 % (40-54); Hemoglobin 10.8 g/dL (13.0-16.5); Mean Corp Hgb Conc 32.1 g/dL (32-36); Mean Corpuscular Hgb 28.1 pg (27.0-32.0); Mean Corpuscular Volume 87.3 fL (80-94); Mean Platelet Vol. 12.5 fl (6.2-12.0); Platelet Count 174 K/mm3 (150-450); RBC Distribution Width CV 14.8 % (11.6-14.6); RBC Distribution Width SD 47.8 fl (35.1-43.9); Red Blood Count 3.85 M/mm3 (4.6-6.2); White Blood Count 21.7 K/mm3 (4.4-11.0)
[2020-04-25 06:06] LABS: Anion Gap 8 (5-15); BUN 36 mg/dL (7-18); BUN/Creat Ratio 10.7 RATIO (10-20); Calcium,Total 7.8 mg/dL (8.5-10.1); Chloride 98 mmol/L (98-107); Creatinine, Serum 3.36 mg/dL (0.70-1.30); EST Glomerular Filtration Rate 19 mL/min (>60); Est Glom Filt Rate - Afr Amer 23 mL/min (>60); Glucose 195 mg/dL (74-106); Sodium Level 133 mmol/L (136-145)
[2020-04-25] MEDS: Insulin Lispro 100 UNIT/ML INSULN.PEN SC ×3 (06:45→17:36)
--- NOTE | 2020-04-25 06:46 | NURSING ---
Pt. declines 0730 glipizide at this time d/t it makes me thirsty and I can't drink, pt. is on FR 1500ml/day. Accepts SQ Humalog, see MAR. Pt. also refuses to have johnson removed at this time. Education regarding infection discussed.
[2020-04-25 07:00] LABS: Bedside Glucose 200 mg/dL (70-110)
[2020-04-25] MEDS: amLODIPine 10 MG Tablet PO (09:31)
[2020-04-25] MEDS: Aspirin E.C. 81 MG Tablet PO (09:31)
[2020-04-25] MEDS: 0.9% Saline Lock 10 ML Syringe IV (09:32)
--- NOTE | 2020-04-25 10:36 | CASEMGMT ---
SAURAV called [facility] and let them know patient will be here through the weekend. SAURAV asked if it is okay if he comes with a temporary dialysis cath and gets permanent one as an outpatient. They said that should not be a problem. SAURAV told them SW can touch base with them on Tuesday. SW will fax updates. Amy BERGMAN
--- NOTE | 2020-04-25 10:38 | CASEMGMT ---
ISABEL CHENG NOTE: Call received from Santos @ [facility]. Per Santos, he did not receive clinical info on pt and asked for H/P, labs/updated clinical info be faxed to him. He states once they receive this info, pt will have medical clearance. Faxed H/P, updated progress notes, and labs to him at this time. Santos confirms tentative start of OP dialysis @ [facility] is 04/29 @ 7200. Layla ROBLESN ISABEL CM
--- NOTE | 2020-04-25 10:42 | CASEMGMT ---
SW spoke with patient about a d/c plan. He seemed surprised that we feel he is too weak to go home at this time. SW told him that it is recommended he go to a custodial facility short term. He said, I don't know about that. He said his ex- usually makes meals for him and she can be there all the time if he prefers. He said he can walk around with the walker. SW told him that thinks can change and he will be here through the weekend. SW told him he will need to continue to work with therapy and show us he is stronger than what it appears. He thanked SAURAV for the update. SW to follow up on Tuesday. Amy VALDERRAMA MSW
--- NOTE | 2020-04-25 10:56 | PN_ITS ---
Patient Problems: Active and Suspected Problems (Last Reviewed 05/04/18 @ 09:[address] Laron Bacon MD) Swelling of both lower extremities (Acute) Hyperkalemia (Acute) Dyspnea (Acute) Subjective: Follow-up to consultation, CT scan reviewed, white count is elevated 26 coming down to 21 today consultation he does have a lot of stranding around his left kidney some mild hydronephrosis probably has pyelonephritis on the left side but there is no obstruction no stone no definite obstruction so I think conservative measures with IV antibiotics may be is all that is necessary however if it does not resolve we could consider placing a stent in the left side. Given all his comorbidities we will see if IV antibiotics will be sufficient we will follow with you. - Physical Exam Vitals/I&O's: Vital Signs Temp Pulse Resp BP Pulse Ox 97.5 F L 66 16 142/71 H 93 04/25/20 09:14 04/25/20 09:14 04/25/20 09:14 04/25/20 09:14 04/25/20 09:14 Oxygen Flow Rate (L/min) 2 Oxygen Delivery Method Room Air Weight: 115.212 kg Body Mass Index (BMI) 36.4 Orthostatic Vital Signs Start: 04/22/20 09:19 Freq: q24h Status: Active Protocol: Activity Type Activity Date Activity User E-Sign Co-Sign Detail Recorded Client Recorded Date Recorded By Document 04/25/20 06:26 [id number] 04/25/20 06:36 KK 04/25/20 06:26 Orthostatic Vitals Standing -Blood Pressure (90/60-120/80) 130/56 H -Extremity Use Left Arm -Pulse Rate (60-100) 71 Sitting -Blood Pressure (90/60-120/80) 141/82 H -Extremity Use Left Arm -Pulse Rate (60-100) 66 Lying -Blood Pressure (90/60-120/80) 137/67 H -Extremity Use Left Arm -Pulse Rate (60-100) 61 Intake and Output for Last 24 Hours 04/23/20 04/24/20 04/25/20 23:59 23:59 23:59 Intake Total 1253.25 / 1253.25 510 / 510 120 / 120 Output Total 95 / 95 225 / 225 175 / 175 Balance 1158.25 / 1158.25 285 / 285 -55 / -55 General: Alert, Oriented x3, Cooperative HEENT: Atraumatic, PERRLA, EOMI, Normocephalic Neck: Supple, No JVD, Negative Carotid Bruits Lungs: Clear to auscultation, Normal air movement Cardiovascular: Regular rate, No murmurs Abdomen: Bowel Sounds Present, Soft, Non Tender Extremities: No edema, Capillary Refill Less than 3 Seconds Skin: No rashes, No breakdown Musculoskeletal: No Tenderness to Palpation of Joints or Extremities Neurological: Cranial nerves II-XII grossly intact Psych/Mental Status: Normal Affect, Appropriate Microbiology Past 72 Hours 04/23/20 09:00 Blood Culture (Wb) - Left Hand Blood Culture - Preliminary No growth in 48 hours. 04/23/20 08:55 Blood Culture (Wb) - Left Forearm Blood Culture - Preliminary No growth in 48 hours. Laboratory Results 04/24/20 22:03: POC Glucose 250 H 04/24/20 23:36: Urine Color Yellow, Urine Clarity Sl. Cloudy, Urine pH 5.0, Ur Specific [place] 1.020, Urine Protein 30 H, Urine Glucose (UA) Normal, Urine Ketones 5 H, Urine Occult Blood 25 H, Urine Nitrite Negative, Urine Bilirubin Negative, Urine Urobilinogen 1 H, Ur Leukocyte Esterase 500 H, Urine RBC 5-10 SEEN, Urine WBC >100 SEEN, Ur Squamous Epith Cells 5-10 SEEN, Urine Bacteria 0 SEEN, Urine Mucus 0 SEEN 04/25/20 05:20: WBC 21.7 H, RBC 3.85 L, Hgb 10.8 L, Hct 33.6 L, MCV 87.3, MCH 28.1, MCHC 32.1, RDW Std Deviation 47.8 H, RDW Coeff of Frances 14.8 H, Plt Count 174, MPV 12.5 H 04/25/20 05:20: Sodium 133 L, Potassium 4.0, Chloride 98, Carbon Dioxide 27.0, Anion Gap 8, BUN 36 H, Creatinine 3.36 H, Estim Creat Clear Calc 17.50, Est GFR (MDRD) Af Amer 23 L, Est GFR (MDRD) Non-Af 19 L, BUN/Creatinine Ratio 10.7, Glucose 195 H, Calcium 7.8 L 04/25/20 06:43: POC Glucose 200 H Current Medications Acetaminophen (Acetaminophen 325 Mg Tablet) 650 mg PO Q6H PRN PRN PRN Reason: Pain Score 1-10 Last Admin: 04/23/20 09:40 Dose: 650 mg Documented by: Amlodipine Besylate (Amlodipine 10 Mg Tablet) 10 mg PO DAILY [facility] Last Admin: 04/25/20 09:31 Dose: 10 mg Documented by: Aspirin (Aspirin E.C. 81 Mg Tablet) 81 mg PO DAILY [facility] Last Admin: 04/25/20 09:31 Dose: 81 mg Documented by: Cholecalciferol (Cholecalciferol (Vit D3) 1,000 Unit (25mcg)) 5,000 unit PO DAILY [facility] Last Admin: 04/25/20 09:30 Dose: 5,000 unit Documented by: Glipizide (Glipizide 10 Mg Tablet) 10 mg PO BIDAC [facility] Last Admin: 04/25/20 06:46 Dose: Not Given Documented by: Sodium Chloride () 250 mls @ 15 mls/hr IV .[id number] PRN PRN Reason: Saline Flush Last Infusion: 04/23/20 11:07 Dose: 0 mls/hr Documented by: Sodium Chloride () 250 mls @ 15 mls/hr IV .[id number] PRN PRN Reason: Additional IVPB Infusion Ceftriaxone Sodium (Rocephin) 1 gm in 50 mls @ 100 mls/hr IV Q24 [facility] Last Infusion: 04/24/20 15:56 Dose: Infused Documented by: Insulin Glargine (Insulin Glargine 100 Units/Ml Pen) 30 units SC DINNER [facility] Last Admin: 04/24/20 16:00 Dose: 30 u Documented by: Insulin Human Lispro (Insulin Lispro 100 Unit/Ml Insuln.Pen) 0 unit SC ACHS [facility]; Protocol Last Admin: 04/25/20 06:45 Dose: 2 units Documented by: Metoprolol Tartrate (Metoprolol Tartrate 25 Mg Tablet) 12.5 mg PO BID [facility] Last Admin: 04/24/20 22:04 Dose: Not Given Documented by: Nitroglycerin (Nitroglycerin (Inpatient Use) 0.4 Mg Tab.Subl) 0.4 mg SUBLINGUAL Q5M PRN PRN Reason: CARDIAC/CHEST PAIN Ondansetron HCl (Ondansetron 4 Mg/2 Ml Vial) 4 mg IV Q6H PRN PRN PRN Reason: NAUSEA/VOMITING Last Admin: 04/22/20 08:45 Dose: 4 mg Documented by: Sodium Chloride (0.9% Saline Lock 10 Ml Syringe) 10 - 40 ml IV UD PRN PRN Reason: SALINE FLUSH Last Admin: 04/25/20 09:32 Dose: 10 ml Documented by: Medical Necessity - Tobacco Use Smoking Status: Never smoker Tobacco Use: Non-smoker Assessment/Plan All Active Problems (Last Reviewed 05/04/18 @ 09:[address] Laron Bacon MD) Swelling of both lower extremities (Acute) Hyperkalemia (Acute) Dyspnea (Acute) Continue to follow the patient he does have some mild left hydronephrosis some straining on the left kidney possible pyelonephritis continue with IV antibiotics cultures pending on the urine.
--- NOTE | 2020-04-25 12:27 | PCM.PN.REN ---
Patient Problems: Active and Suspected Problems (Last Reviewed 05/04/18 @ 09:[address] Laron Bacon MD) Swelling of both lower extremities (Acute) Hyperkalemia (Acute) Dyspnea (Acute) Subjective: no cp/sob no c/o today - Physical Exam Vitals/I&O's: Vital Signs Temp Pulse Resp BP Pulse Ox 97.5 F L 66 16 142/71 H 93 04/25/20 09:14 04/25/20 09:14 04/25/20 09:14 04/25/20 09:14 04/25/20 09:14 Oxygen Flow Rate (L/min) 2 Oxygen Delivery Method Room Air Weight: 115.212 kg Body Mass Index (BMI) 36.4 Orthostatic Vital Signs Start: 04/22/20 09:19 Freq: q24h Status: Active Protocol: Activity Type Activity Date Activity User E-Sign Co-Sign Detail Recorded Client Recorded Date Recorded By Document 04/25/20 06:26 MARQUISE [id number] 04/25/20 06:36 KK 04/25/20 06:26 Orthostatic Vitals Standing -Blood Pressure (90/60-120/80) 130/56 H -Extremity Use Left Arm -Pulse Rate (60-100) 71 Sitting -Blood Pressure (90/60-120/80) 141/82 H -Extremity Use Left Arm -Pulse Rate (60-100) 66 Lying -Blood Pressure (90/60-120/80) 137/67 H -Extremity Use Left Arm -Pulse Rate (60-100) 61 Intake and Output for Last 24 Hours 04/23/20 04/24/20 04/25/20 23:59 23:59 23:59 Intake Total 1253.25 / 1253.25 510 / 510 120 / 120 Output Total 95 / 95 225 / 225 175 / 175 Balance 1158.25 / 1158.25 285 / 285 -55 / -55 General: Alert, Cooperative HEENT: Atraumatic, Normocephalic Oral: Moist Mucosa Neck: Supple, Trachea Midline Lungs: Clear to auscultation, Normal air movement Cardiovascular: Regular rate, Regular Rhythm, Normal S1, Normal S2 Abdomen: Bowel Sounds Present, Soft, Obese Extremities: Edema Microbiology Past 72 Hours 04/23/20 09:00 Blood Culture (Wb) - Left Hand Blood Culture - Preliminary No growth in 48 hours. 04/23/20 08:55 Blood Culture (Wb) - Left Forearm Blood Culture - Preliminary No growth in 48 hours. Laboratory Results 04/24/20 22:03: POC Glucose 250 H 04/24/20 23:36: Urine Color Yellow, Urine Clarity Sl. Cloudy, Urine pH 5.0, Ur Specific [place] 1.020, Urine Protein 30 H, Urine Glucose (UA) Normal, Urine Ketones 5 H, Urine Occult Blood 25 H, Urine Nitrite Negative, Urine Bilirubin Negative, Urine Urobilinogen 1 H, Ur Leukocyte Esterase 500 H, Urine RBC 5-10 SEEN, Urine WBC >100 SEEN, Ur Squamous Epith Cells 5-10 SEEN, Urine Bacteria 0 SEEN, Urine Mucus 0 SEEN 04/25/20 05:20: WBC 21.7 H, RBC 3.85 L, Hgb 10.8 L, Hct 33.6 L, MCV 87.3, MCH 28.1, MCHC 32.1, RDW Std Deviation 47.8 H, RDW Coeff of Frances 14.8 H, Plt Count 174, MPV 12.5 H 04/25/20 05:20: Sodium 133 L, Potassium 4.0, Chloride 98, Carbon Dioxide 27.0, Anion Gap 8, BUN 36 H, Creatinine 3.36 H, Estim Creat Clear Calc 17.50, Est GFR (MDRD) Af Amer 23 L, Est GFR (MDRD) Non-Af 19 L, BUN/Creatinine Ratio 10.7, Glucose 195 H, Calcium 7.8 L 04/25/20 06:43: POC Glucose 200 H Current Medications Acetaminophen (Acetaminophen 325 Mg Tablet) 650 mg PO Q6H PRN PRN PRN Reason: Pain Score 1-10 Last Admin: 04/23/20 09:40 Dose: 650 mg Documented by: Amlodipine Besylate (Amlodipine 10 Mg Tablet) 10 mg PO DAILY [facility] Last Admin: 04/25/20 09:31 Dose: 10 mg Documented by: Aspirin (Aspirin E.C. 81 Mg Tablet) 81 mg PO DAILY [facility] Last Admin: 04/25/20 09:31 Dose: 81 mg Documented by: Cholecalciferol (Cholecalciferol (Vit D3) 1,000 Unit (25mcg)) 5,000 unit PO DAILY [facility] Last Admin: 04/25/20 09:30 Dose: 5,000 unit Documented by: Glipizide (Glipizide 10 Mg Tablet) 10 mg PO BIDAC [facility] Last Admin: 04/25/20 06:46 Dose: Not Given Documented by: Sodium Chloride () 250 mls @ 15 mls/hr IV .[id number] PRN PRN Reason: Saline Flush Last Infusion: 04/23/20 11:07 Dose: 0 mls/hr Documented by: Sodium Chloride () 250 mls @ 15 mls/hr IV .[id number] PRN PRN Reason: Additional IVPB Infusion Ceftriaxone Sodium (Rocephin) 1 gm in 50 mls @ 100 mls/hr IV Q24 CIRO Last Infusion: 04/24/20 15:56 Dose: Infused Documented by: Insulin Glargine (Insulin Glargine 100 Units/Ml Pen) 30 units SC DINNER [facility] Last Admin: 04/24/20 16:00 Dose: 30 u Documented by: Insulin Human Lispro (Insulin Lispro 100 Unit/Ml Insuln.Pen) 0 unit SC ACHS [facility]; Protocol Last Admin: 04/25/20 06:45 Dose: 2 units Documented by: Metoprolol Tartrate (Metoprolol Tartrate 25 Mg Tablet) 12.5 mg PO BID [facility] Last Admin: 04/24/20 22:04 Dose: Not Given Documented by: Nitroglycerin (Nitroglycerin (Inpatient Use) 0.4 Mg Tab.Subl) 0.4 mg SUBLINGUAL Q5M PRN PRN Reason: CARDIAC/CHEST PAIN Ondansetron HCl (Ondansetron 4 Mg/2 Ml Vial) 4 mg IV Q6H PRN PRN PRN Reason: NAUSEA/VOMITING Last Admin: 04/22/20 08:45 Dose: 4 mg Documented by: Sodium Chloride (0.9% Saline Lock 10 Ml Syringe) 10 - 40 ml IV UD PRN PRN Reason: SALINE FLUSH Last Admin: 04/25/20 09:32 Dose: 10 ml Documented by: Medical Necessity - Tobacco Use Smoking Status: Never smoker Tobacco Use: Non-smoker Assessment/Plan All Active Problems (Last Reviewed 05/04/18 @ 09:[address] 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
[2020-04-25] MEDS: Enoxaparin 30 MG/0.3 ML Syringe SC (14:12)
[2020-04-25] MEDS: Ceftriaxone 1 GM/50 ML BAG IV (14:12)
--- NOTE | 2020-04-25 14:34 | PN_ITS ---
Patient Problems: Active and Suspected Problems (Last Reviewed 05/04/18 @ 09:[address] Laron Bacon MD) Swelling of both lower extremities (Acute) Hyperkalemia (Acute) Dyspnea (Acute) Subjective: Patient seen and examined. He said he felt better today. Review of systems is otherwise negative. Remained hemodynamically stable. He was noted to be mildly bradycardic. Heart rate 56 this morning. Creatinine is 3.36 today. WBC is down to 21.7. Vitals/I&O's: Vital Signs Temp Pulse Resp BP Pulse Ox 97.5 F L 56 L 16 142/71 H 91 04/25/20 09:14 04/25/20 11:59 04/25/20 09:14 04/25/20 09:14 04/25/20 10:40 Oxygen Flow Rate (L/min) 2 Oxygen Delivery Method Room Air Weight: 253 lb 15.983 oz Body Mass Index (BMI) 36.4 Orthostatic Vital Signs Start: 04/22/20 09:19 Freq: q24h Status: Active Protocol: Activity Type Activity Date Activity User E-Sign Co-Sign Detail Recorded Client Recorded Date Recorded By Document 04/25/20 06:26 MARQUISE [id number] 04/25/20 06:36 KK 04/25/20 06:26 Orthostatic Vitals Standing -Blood Pressure (90/60-120/80) 130/56 H -Extremity Use Left Arm -Pulse Rate (60-100) 71 Sitting -Blood Pressure (90/60-120/80) 141/82 H -Extremity Use Left Arm -Pulse Rate (60-100) 66 Lying -Blood Pressure (90/60-120/80) 137/67 H -Extremity Use Left Arm -Pulse Rate (60-100) 61 Intake and Output for Last 24 Hours 04/23/20 04/24/20 04/25/20 23:59 23:59 23:59 Intake Total 1253.25 / 1253.25 510 / 510 320 / 320 Output Total 95 / 95 225 / 225 300 / 300 Balance 1158.25 / 1158.25 285 / 285 General: Alert, Oriented x3, Cooperative, HEENT: Atraumatic, PERRLA, EOMI, Normocephalic Oral: moist Mucosa Neck: Supple, No JVD, Negative Carotid Bruits Lungs: - - diminished breath sounds bibasally; on room air. Cardiovascular: Regular rate, Regular Rhythm, Normal S1, Normal S2, No murmurs Abdomen: Bowel Sounds Present, Soft, Non Tender, Non-Distended, No Hepato- splenomegaly, Obese Extremities: No clubbing, No cyanosis, Edema - 2+ pitting edema of both extremities Skin: No rashes, No breakdown Musculoskeletal: No Tenderness to Palpation of Joints or Extremities; dialysis catheter in chest Lymphatic: No Cervical, Supraclavicular, or Inguinal Adenopathy Neurological: Cranial nerves II-XII grossly intact, Neuro grossly intact, Motor Exam 5/5 strength throughout Psych/Mental Status: Normal Affect, Appropriate, Alert and oriented to time, place, person, mood and affect Microbiology Past 72 Hours 04/23/20 09:00 Blood Culture (Wb) - Left Hand Blood Culture - Preliminary No growth in 48 hours. 04/23/20 08:55 Blood Culture (Wb) - Left Forearm Blood Culture - Preliminary No growth in 48 hours. Laboratory Results 04/24/20 22:03: POC Glucose 250 H 04/24/20 23:36: Urine Color Yellow, Urine Clarity Sl. Cloudy, Urine pH 5.0, Ur Specific [place] 1.020, Urine Protein 30 H, Urine Glucose (UA) Normal, Urine Ketones 5 H, Urine Occult Blood 25 H, Urine Nitrite Negative, Urine Bilirubin Negative, Urine Urobilinogen 1 H, Ur Leukocyte Esterase 500 H, Urine RBC 5-10 SEEN, Urine WBC >100 SEEN, Ur Squamous Epith Cells 5-10 SEEN, Urine Bacteria 0 SEEN, Urine Mucus 0 SEEN 04/25/20 05:20: WBC 21.7 H, RBC 3.85 L, Hgb 10.8 L, Hct 33.6 L, MCV 87.3, MCH 28.1, MCHC 32.1, RDW Std Deviation 47.8 H, RDW Coeff of Frances 14.8 H, Plt Count 174, MPV 12.5 H 04/25/20 05:20: Sodium 133 L, Potassium 4.0, Chloride 98, Carbon Dioxide 27.0, Anion Gap 8, BUN 36 H, Creatinine 3.36 H, Estim Creat Clear Calc 17.50, Est GFR (MDRD) Af Amer 23 L, Est GFR (MDRD) Non-Af 19 L, BUN/Creatinine Ratio 10.7, Glucose 195 H, Calcium 7.8 L 04/25/20 06:43: POC Glucose 200 H Current Medications Acetaminophen (Acetaminophen 325 Mg Tablet) 650 mg PO Q6H PRN PRN PRN Reason: Pain Score 1-10 Last Admin: 04/23/20 09:40 Dose: 650 mg Documented by: Amlodipine Besylate (Amlodipine 10 Mg Tablet) 10 mg PO DAILY [facility] Last Admin: 04/25/20 09:31 Dose: 10 mg Documented by: Aspirin (Aspirin E.C. 81 Mg Tablet) 81 mg PO DAILY [facility] Last Admin: 04/25/20 09:31 Dose: 81 mg Documented by: Cholecalciferol (Cholecalciferol (Vit D3) 1,000 Unit (25mcg)) 5,000 unit PO DAILY [facility] Last Admin: 04/25/20 09:30 Dose: 5,000 unit Documented by: Enoxaparin Sodium (Enoxaparin 30 Mg/0.3 Ml Syringe) 30 mg SC DAILY [facility] Last Admin: 04/25/20 14:12 Dose: 30 mg Documented by: Glipizide (Glipizide 10 Mg Tablet) 10 mg PO BIDAC [facility] Last Admin: 04/25/20 06:46 Dose: Not Given Documented by: Sodium Chloride () 250 mls @ 15 mls/hr IV .[id number] PRN PRN Reason: Saline Flush Last Infusion: 04/23/20 11:07 Dose: 0 mls/hr Documented by: Sodium Chloride () 250 mls @ 15 mls/hr IV .[id number] PRN PRN Reason: Additional IVPB Infusion Ceftriaxone Sodium (Rocephin) 1 gm in 50 mls @ 100 mls/hr IV Q24 [facility] Last Admin: 04/25/20 14:12 Dose: 100 mls/hr Documented by: Insulin Glargine (Insulin Glargine 100 Units/Ml Pen) 30 units SC DINNER [facility] Last Admin: 04/24/20 16:00 Dose: 30 u Documented by: Insulin Human Lispro (Insulin Lispro 100 Unit/Ml Insuln.Pen) 0 unit SC ACHS [facility]; Protocol Last Admin: 04/25/20 14:15 Dose: 4 units Documented by: Nitroglycerin (Nitroglycerin (Inpatient Use) 0.4 Mg Tab.Subl) 0.4 mg SUBLINGUAL Q5M PRN PRN Reason: CARDIAC/CHEST PAIN Ondansetron HCl (Ondansetron 4 Mg/2 Ml Vial) 4 mg IV Q6H PRN PRN PRN Reason: NAUSEA/VOMITING Last Admin: 04/22/20 08:45 Dose: 4 mg Documented by: Sodium Chloride (0.9% Saline Lock 10 Ml Syringe) 10 - 40 ml IV UD PRN PRN Reason: SALINE FLUSH Last Admin: 04/25/20 09:32 Dose: 10 ml Documented by: STROKE Vital Signs/Narrative: Vital Signs Pulse Pulse Ox 04/25/20 11:59 56 L 04/25/20 10:40 91 Medical Necessity - Tobacco Use Smoking Status: Never smoker Tobacco Use: Non-smoker Assessment/Plan All Active Problems (Last Reviewed 05/04/18 @ 09:[address] Laron Bacon MD) Swelling of both lower extremities (Acute) Hyperkalemia (Acute) Dyspnea (Acute) # Acute heart failure with preserved EF. * 2D echo showed EF of 53%, with stage 2 diastolic dysfunction and no regional wall motion abnormalities. left atrium moderately enlarged * now on dialysis as diuresis wasnt helping much * CT chest and abdomen requested per cardiology didnt show any evidence of constrictive pericarditis * troponins x 3 are negative. * cardiology on board * fluid restriction to 1500cc daily. * monitor intake and output * #KITTY on CKD 3 * renal USG showed nonspecific renal parenchymal disease and small left renal cyst. * had temporary dialysis catheter placed for dialysis. * Cr today is 3.36 * nephrology on board * placement of tunneled catheter on hold for now, as leucocytosis is being worked up * #Right pyelonephritis * wbc is down to 21 today. * patient still feels weak * blood cultures pending; he did have a dialysis catheter inserted recently * CT of the abdomen and pelvis with oral contrast showed stable bilateral perinephric stranding worse on the left side with severe left hydronephrosis and hydroureter, with diffuse bladder wall thickening * Urology consulted: Urology reviewed patient and does not think that there is an indication for surgical intervention and advocates conservative management * ID on board * #Bradycardia * HR going down to the 40s. * patient is largely asymptomatic. Will get EKG and hold beta nicole. * * #UTI: * UA showed 3+ bacteria. urine cultured E coli. on IV ceftriaxone; * wbc up to 26 today. * ID consulted in light of persistent leucocytosis * #Diabetes mellitus: ISS. Accuchecks ACHS and glipizide 10 mg twice daily, as well as lantus #Hypertension: lisinopril on hold o/a of KITTY on CKD. BP well controlled. DVT prophylaxis: Lovenox renally dosed CODE STATUS: Full code Disposition: awaiting placement. * Inpatient E&M: 92457 Subs Hosp L2
[2020-04-25 15:25] LABS: Bedside Glucose 289 mg/dL (70-110)
--- NOTE | 2020-04-25 15:28 | PCM.PN.ID ---
Patient Problems: Active and Suspected Problems (Last Reviewed 05/04/18 @ 09:[address] Laron Bacon MD) Swelling of both lower extremities (Acute) Hyperkalemia (Acute) Dyspnea (Acute) Subjective: Feeling ok, no fever, no n/v. Mild diarrhea. No abd pain. - Physical Exam Vitals/I&O's: Vital Signs Temp Pulse Resp BP Pulse Ox 97.9 F 42 L 18 136/58 H 91 04/25/20 14:48 04/25/20 14:48 04/25/20 14:48 04/25/20 14:48 04/25/20 15:28 Oxygen Flow Rate (L/min) 2 Oxygen Delivery Method Room Air Weight: 115.212 kg Body Mass Index (BMI) 36.4 Orthostatic Vital Signs Start: 04/22/20 09:19 Freq: q24h Status: Active Protocol: Activity Type Activity Date Activity User E-Sign Co-Sign Detail Recorded Client Recorded Date Recorded By Document 04/25/20 06:26 MARQUISE [id number] 04/25/20 06:36 KK 04/25/20 06:26 Orthostatic Vitals Standing -Blood Pressure (90/60-120/80) 130/56 H -Extremity Use Left Arm -Pulse Rate (60-100) 71 Sitting -Blood Pressure (90/60-120/80) 141/82 H -Extremity Use Left Arm -Pulse Rate (60-100) 66 Lying -Blood Pressure (90/60-120/80) 137/67 H -Extremity Use Left Arm -Pulse Rate (60-100) 61 Intake and Output for Last 24 Hours 04/23/20 04/24/20 04/25/20 23:59 23:59 23:59 Intake Total 1253.25 / 1253.25 510 / 510 370 / 370 Output Total 95 / 95 225 / 225 300 / 300 Balance 1158.25 / 1158.25 285 / 285 70 / 70 General: Alert, Cooperative, No apparent distress Lungs: Clear to auscultation, Normal air movement Cardiovascular: Regular rate, Regular Rhythm Abdomen: Soft, Non Tender, Non-Distended Skin: No rashes Microbiology Past 72 Hours 04/23/20 09:00 Blood Culture (Wb) - Left Hand Blood Culture - Preliminary No growth in 48 hours. 04/23/20 08:55 Blood Culture (Wb) - Left Forearm Blood Culture - Preliminary No growth in 48 hours. Laboratory Results 04/24/20 22:03: POC Glucose 250 H 04/24/20 23:36: Urine Color Yellow, Urine Clarity Sl. Cloudy, Urine pH 5.0, Ur Specific [place] 1.020, Urine Protein 30 H, Urine Glucose (UA) Normal, Urine Ketones 5 H, Urine Occult Blood 25 H, Urine Nitrite Negative, Urine Bilirubin Negative, Urine Urobilinogen 1 H, Ur Leukocyte Esterase 500 H, Urine RBC 5-10 SEEN, Urine WBC >100 SEEN, Ur Squamous Epith Cells 5-10 SEEN, Urine Bacteria 0 SEEN, Urine Mucus 0 SEEN 04/25/20 05:20: WBC 21.7 H, RBC 3.85 L, Hgb 10.8 L, Hct 33.6 L, MCV 87.3, MCH 28.1, MCHC 32.1, RDW Std Deviation 47.8 H, RDW Coeff of Frances 14.8 H, Plt Count 174, MPV 12.5 H 04/25/20 05:20: Sodium 133 L, Potassium 4.0, Chloride 98, Carbon Dioxide 27.0, Anion Gap 8, BUN 36 H, Creatinine 3.36 H, Estim Creat Clear Calc 17.50, Est GFR (MDRD) Af Amer 23 L, Est GFR (MDRD) Non-Af 19 L, BUN/Creatinine Ratio 10.7, Glucose 195 H, Calcium 7.8 L 04/25/20 06:43: POC Glucose 200 H 04/25/20 14:14: POC Glucose 289 H Current Medications Acetaminophen (Acetaminophen 325 Mg Tablet) 650 mg PO Q6H PRN PRN PRN Reason: Pain Score 1-10 Last Admin: 04/23/20 09:40 Dose: 650 mg Documented by: Amlodipine Besylate (Amlodipine 10 Mg Tablet) 10 mg PO DAILY [facility] Last Admin: 04/25/20 09:31 Dose: 10 mg Documented by: Aspirin (Aspirin E.C. 81 Mg Tablet) 81 mg PO DAILY [facility] Last Admin: 04/25/20 09:31 Dose: 81 mg Documented by: Cholecalciferol (Cholecalciferol (Vit D3) 1,000 Unit (25mcg)) 5,000 unit PO DAILY [facility] Last Admin: 04/25/20 09:30 Dose: 5,000 unit Documented by: Enoxaparin Sodium (Enoxaparin 30 Mg/0.3 Ml Syringe) 30 mg SC DAILY [facility] Last Admin: 04/25/20 14:12 Dose: 30 mg Documented by: Glipizide (Glipizide 10 Mg Tablet) 10 mg PO BIDAC [facility] Last Admin: 04/25/20 06:46 Dose: Not Given Documented by: Sodium Chloride () 250 mls @ 15 mls/hr IV .[id number] PRN PRN Reason: Saline Flush Last Infusion: 04/23/20 11:07 Dose: 0 mls/hr Documented by: Sodium Chloride () 250 mls @ 15 mls/hr IV .[id number] PRN PRN Reason: Additional IVPB Infusion Ceftriaxone Sodium (Rocephin) 1 gm in 50 mls @ 100 mls/hr IV Q24 [facility] Last Infusion: 04/25/20 14:42 Dose: Infused Documented by: Insulin Glargine (Insulin Glargine 100 Units/Ml Pen) 30 units SC DINNER [facility] Last Admin: 04/24/20 16:00 Dose: 30 u Documented by: Insulin Human Lispro (Insulin Lispro 100 Unit/Ml Insuln.Pen) 0 unit SC ACHS [facility]; Protocol Last Admin: 04/25/20 14:15 Dose: 4 units Documented by: Nitroglycerin (Nitroglycerin (Inpatient Use) 0.4 Mg Tab.Subl) 0.4 mg SUBLINGUAL Q5M PRN PRN Reason: CARDIAC/CHEST PAIN Ondansetron HCl (Ondansetron 4 Mg/2 Ml Vial) 4 mg IV Q6H PRN PRN PRN Reason: NAUSEA/VOMITING Last Admin: 04/22/20 08:45 Dose: 4 mg Documented by: Sodium Chloride (0.9% Saline Lock 10 Ml Syringe) 10 - 40 ml IV UD PRN PRN Reason: SALINE FLUSH Last Admin: 04/25/20 09:32 Dose: 10 ml Documented by: Medical Necessity - Tobacco Use Smoking Status: Never smoker Tobacco Use: Non-smoker Route of nutrition/ use of supplements: [] Nutritional Intake: [] IV Site: [] Lozano Catheter: [] - Assessment/Plan Antibiotics: [] Assessment/Plan: [] Active and Suspected Problems (Last Reviewed 05/04/18 @ 09:[address] Laron Bacon MD) Swelling of both lower extremities (Acute) Hyperkalemia (Acute) Dyspnea (Acute) KITTY, BLE edema - now on HD. Had false (+) covid Ag on admit, pcr neg. Now with rising wbc, otherwise asymptomatic. Has been on ceftriaxone since admit 04/20, ucx with ecoli. CT with hydronephrosis, wbc improving, no plan for urologic procedure at this point per Dr. Carroll. Will follow
--- NOTE | 2020-04-25 15:30 | EKG12_ITS ---
Test Reason : MARCUS Blood Pressure : / mmHG Vent. Rate : 061 BPM Atrial Rate : 288 BPM P-R Int : 136 ms QRS Dur : 112 ms QT Int : 482 ms P-R-T Axes : 036 -08 074 degrees QTc Int : 485 ms Atrial Fibrillation/Flutter Incomplete left bundle branch block Nonspecific ST abnormality Prolonged QT Abnormal ECG Confirmed by RASHID AVILA, PETER ([id number]), fashion editor GEE DUNCAN ([id number]) on 04/30/2020 1:18:30 PM Referred By: DANIEL Confirmed By:PETER MIKE MD
[2020-04-25 18:16] LABS: Bedside Glucose 195 mg/dL (70-110)
[2020-04-25 23:11] LABS: Bedside Glucose 148 mg/dL (70-110)
[2020-04-26] VITALS (13 sets, daily range): BP systolic 108–134; BP diastolic 43–68; PULSE 49–78; RESP 17–19; TEMP 36.6–36.9; O2SAT 92–96
[2020-04-26 05:59] LABS: Hematocrit 33.8 % (40-54); Mean Corp Hgb Conc 32.5 g/dL (32-36); Mean Corpuscular Hgb 28.2 pg (27.0-32.0); Mean Corpuscular Volume 86.7 fL (80-94); Mean Platelet Vol. 12.3 fl (6.2-12.0); POSITIVE COUNT YES; POSITIVE MORPHOLOGY YES; Platelet Count 198 K/mm3 (150-450); RBC Distribution Width CV 14.3 % (11.6-14.6); RBC Distribution Width SD 45.4 fl (35.1-43.9); White Blood Count 20.5 K/mm3 (4.4-11.0)
[2020-04-26 06:01] LABS: Differential Indicated MANUAL DIFF
[2020-04-26 06:25] LABS: ALB/GLOB Ratio 0.6 RATIO (0.9-2.4); AST(SGOT) 24 U/L (15-37); Alanine Aminotransfer ALT/SGPT 48 U/L (16-61); Albumin, Serum 2.1 g/dL (3.2-5.0); Alkaline Phosphatase 128 U/L (45-117); Anion Gap 8 (5-15); BUN 46 mg/dL (7-18); BUN/Creat Ratio 11.5 RATIO (10-20); Calcium,Total 7.8 mg/dL (8.5-10.1); Chloride 98 mmol/L (98-107); Creatinine, Serum 3.99 mg/dL (0.70-1.30); EST Glomerular Filtration Rate 15 mL/min (>60); Est Glom Filt Rate - Afr Amer 19 mL/min (>60); Estimated Creatinine Clearance 14.74 ml/min; Globulin 3.7 g/dL (2.2-4.2); Glucose 95 mg/dL (74-106); Protein, Total 5.8 g/dL (6.4-8.2); Sodium Level 133 mmol/L (136-145)
[2020-04-26 06:53] LABS: Eosinophil 1 % (0-5); Lymphocyte 10 % (19-41); Metamyelocyte 2 % (0-1); Monocyte 7 % (0-10); Neutrophil-Band 1 % (0-5); Neutrophil-Segmented 79 % (47-70); Platelet Estimate ADEQUATE (ADEQ); Total Cells Counted 100 (MANUAL DIFF)
[2020-04-26 06:54] LABS: Hypochromasia 2+; Lymphocyte # 2.04 X10^3/ul (4.0); Red Cell Morphology N CYTIC NORMAL (NORM C&C)
[2020-04-26 06:55] LABS: Absolute Lymphocyte Count 2.04 X10^3/uL (0.83-4.51); Absolute Neutrophil Count 16.4 X10^3/uL (2.0-7.7); Neutrophil # 16.36 X10^3/uL (2.7-7.7)
[2020-04-26 07:06] LABS: Bedside Glucose 86 mg/dL (70-110)
[2020-04-26] MEDS: Enoxaparin 30 MG/0.3 ML Syringe SC (08:42)
[2020-04-26] MEDS: Aspirin E.C. 81 MG Tablet PO (08:42)
--- NOTE | 2020-04-26 09:21 | PN_ITS ---
Patient Problems: Active and Suspected Problems (Last Reviewed 05/04/18 @ 09:[address] Laron Bacon MD) Swelling of both lower extremities (Acute) Hyperkalemia (Acute) Dyspnea (Acute) Subjective: No real changes overnight, no abdominal pain, white blood count is down a little bit but still 20. He did have E. coli in the urine. Pansensitive. - Physical Exam Vitals/I&O's: Vital Signs Temp Pulse Resp BP Pulse Ox 98.3 F 61 18 133/49 H 92 04/26/20 08:28 04/26/20 08:28 04/26/20 08:28 04/26/20 08:28 04/26/20 08:28 Oxygen Flow Rate (L/min) 2 Oxygen Delivery Method Nasal Cannula Weight: 115.212 kg Body Mass Index (BMI) 36.4 Orthostatic Vital Signs Start: 04/22/20 09:19 Freq: q24h Status: Active Protocol: Activity Type Activity Date Activity User E-Sign Co-Sign Detail Recorded Client Recorded Date Recorded By Document 04/26/20 06:47 MARQUISE [id number] 04/26/20 06:48 KK 04/26/20 06:47 Orthostatic Vitals Standing -Blood Pressure (90/60-120/80) 116/61 -Extremity Use Right Arm -Pulse Rate (60-100) 78 Sitting -Blood Pressure (90/60-120/80) 109/53 L -Extremity Use Right Arm -Pulse Rate (60-100) 68 Lying -Blood Pressure (90/60-120/80) 111/45 L -Extremity Use Right Arm -Pulse Rate (60-100) 77 Intake and Output for Last 24 Hours 04/24/20 04/25/20 04/26/20 23:59 23:59 23:59 Intake Total 510 / 510 910 / 910 240 / 240 Output Total 225 / 225 550 / 550 400 / 400 Balance 285 / 285 360 / 360 -160 / -160 General: Alert, Oriented x3, Cooperative HEENT: Atraumatic, PERRLA, EOMI, Normocephalic Neck: Supple, No JVD, Negative Carotid Bruits Lungs: Clear to auscultation, Normal air movement Cardiovascular: Regular rate, No murmurs Abdomen: Bowel Sounds Present, Soft, Non Tender Extremities: No edema, Capillary Refill Less than 3 Seconds Skin: No rashes, No breakdown Musculoskeletal: No Tenderness to Palpation of Joints or Extremities Neurological: Cranial nerves II-XII grossly intact Psych/Mental Status: Normal Affect, Appropriate Microbiology Past 72 Hours 04/23/20 09:00 Blood Culture (Wb) - Left Hand Blood Culture - Preliminary No growth in 48 hours. 04/23/20 08:55 Blood Culture (Wb) - Left Forearm Blood Culture - Preliminary No growth in 48 hours. Laboratory Results 04/25/20 14:14: POC Glucose 289 H 04/25/20 17:35: POC Glucose 195 H 04/25/20 23:06: POC Glucose 148 H 04/26/20 05:35: WBC 20.5 H, RBC 3.90 L, Hgb 11.0 L, Hct 33.8 L, MCV 86.7, MCH 28.2, MCHC 32.5, RDW Std Deviation 45.4 H, RDW Coeff of Frances 14.3, Plt Count 198, MPV 12.3 H, Neut % (Auto) Not Reportable, Absolute Neuts (auto) 16.4 H, Absolute Lymphs (auto) 2.04, Total Counted 100, Neutrophils % (Manual) 79 H, Band Neutrophils % 1, Lymphocytes % (Manual) 10 L, Monocytes % (Manual) 7, Eosinophils % (Manual) 1, Metamyelocytes % 2 H, Diff Path Review September, Platelet Estimate ADEQUATE, RBC Morphology N CYTIC, Hypochromasia 2+ 04/26/20 05:35: Sodium 133 L, Potassium 4.0, Chloride 98, Carbon Dioxide 27.0, Anion Gap 8, BUN 46 H, Creatinine 3.99 H, Estim Creat Clear Calc 14.74, Est GFR (MDRD) Af Amer 19 L, Est GFR (MDRD) Non-Af 15 L, BUN/Creatinine Ratio 11.5, Gluc ose 95, Calcium 7.8 L, Total Bilirubin 0.60, AST 24, ALT 48, Alkaline Phosphatase 128 H, Total Protein 5.8 L, Albumin 2.1 L, Globulin 3.7, Albumin/Globulin Ratio 0.6 L 04/26/20 06:35: POC Glucose 86 Current Medications Acetaminophen (Acetaminophen 325 Mg Tablet) 650 mg PO Q6H PRN PRN PRN Reason: Pain Score 1-10 Last Admin: 04/23/20 09:40 Dose: 650 mg Documented by: Amlodipine Besylate (Amlodipine 10 Mg Tablet) 10 mg PO DAILY [facility] Last Admin: 04/26/20 08:41 Dose: Not Given Documented by: Aspirin (Aspirin E.C. 81 Mg Tablet) 81 mg PO DAILY [facility] Last Admin: 04/26/20 08:42 Dose: 81 mg Documented by: Cholecalciferol (Cholecalciferol (Vit D3) 1,000 Unit (25mcg)) 5,000 unit PO DAILY [facility] Last Admin: 04/26/20 08:42 Dose: 5,000 unit Documented by: Enoxaparin Sodium (Enoxaparin 30 Mg/0.3 Ml Syringe) 30 mg SC DAILY [facility] Last Admin: 04/26/20 08:42 Dose: 30 mg Documented by: Glipizide (Glipizide 10 Mg Tablet) 10 mg PO BIDAC [facility] Last Admin: 04/26/20 08:40 Dose: Not Given Documented by: Sodium Chloride () 250 mls @ 15 mls/hr IV .[id number] PRN PRN Reason: Saline Flush Last Infusion: 04/23/20 11:07 Dose: 0 mls/hr Documented by: Sodium Chloride () 250 mls @ 15 mls/hr IV .[id number] PRN PRN Reason: Additional IVPB Infusion Ceftriaxone Sodium (Rocephin) 1 gm in 50 mls @ 100 mls/hr IV Q24 [facility] Last Infusion: 04/25/20 14:42 Dose: Infused Documented by: Insulin Glargine (Insulin Glargine 100 Units/Ml Pen) 30 units SC DINNER [facility] Last Admin: 04/25/20 17:36 Dose: 30 u Documented by: Insulin Human Lispro (Insulin Lispro 100 Unit/Ml Insuln.Pen) 0 unit SC ACHS [facility]; Protocol Last Admin: 04/26/20 08:38 Dose: Not Given Documented by: Nitroglycerin (Nitroglycerin (Inpatient Use) 0.4 Mg Tab.Subl) 0.4 mg SUBLINGUAL Q5M PRN PRN Reason: CARDIAC/CHEST PAIN Ondansetron HCl (Ondansetron 4 Mg/2 Ml Vial) 4 mg IV Q6H PRN PRN PRN Reason: NAUSEA/VOMITING Last Admin: 04/22/20 08:45 Dose: 4 mg Documented by: Sodium Chloride (0.9% Saline Lock 10 Ml Syringe) 10 - 40 ml IV UD PRN PRN Reason: SALINE FLUSH Last Admin: 04/25/20 09:32 Dose: 10 ml Documented by: Medical Necessity - Tobacco Use Smoking Status: Never smoker Tobacco Use: Non-smoker Assessment/Plan All Active Problems (Last Reviewed 05/04/18 @ 09:[address] Laron Bacon MD) Swelling of both lower extremities (Acute) Hyperkalemia (Acute) Dyspnea (Acute) 84-year-old male with a urinary tract infection some slight hydronephrosis and swelling of the left kidney I think he may have a left pyelonephritis but there is no obstruction no stone no definitive point in the ureter with looks obstructed. If his white count does not improve I could consider placing the stent but not sure if that is necessary for now which is continue to monitor.
--- NOTE | 2020-04-26 10:38 | PCM.PN.SRG ---
Patient Problems: Active and Suspected Problems (Last Reviewed 05/04/18 @ 09:[address] Laron Bacon MD) Swelling of both lower extremities (Acute) Hyperkalemia (Acute) Dyspnea (Acute) Subjective: Patient white blood counts down to 20.5, blood cultures still negative patient is on the antibiotics. WBC may be due to pyelonephritis, patient still getting dialysis with his temporary right IJ - Physical Exam Vitals/I&O's: Vital Signs Temp Pulse Resp BP Pulse Ox 98.3 F 61 18 133/49 H 92 04/26/20 08:28 04/26/20 08:28 04/26/20 08:28 04/26/20 08:28 04/26/20 08:28 Oxygen Flow Rate (L/min) 2 Oxygen Delivery Method Nasal Cannula Weight: 253 lb 15.983 oz Body Mass Index (BMI) 36.4 Orthostatic Vital Signs Start: 04/22/20 09:19 Freq: q24h Status: Active Protocol: Activity Type Activity Date Activity User E-Sign Co-Sign Detail Recorded Client Recorded Date Recorded By Document 04/26/20 06:47 [id number] 04/26/20 06:48 KK 04/26/20 06:47 Orthostatic Vitals Standing -Blood Pressure (90/60-120/80) 116/61 -Extremity Use Right Arm -Pulse Rate (60-100) 78 Sitting -Blood Pressure (90/60-120/80) 109/53 L -Extremity Use Right Arm -Pulse Rate (60-100) 68 Lying -Blood Pressure (90/60-120/80) 111/45 L -Extremity Use Right Arm -Pulse Rate (60-100) 77 Intake and Output for Last 24 Hours 04/24/20 04/25/20 04/26/20 23:59 23:59 23:59 Intake Total 510 / 510 910 / 910 240 / 240 Output Total 225 / 225 550 / 550 400 / 400 Balance 285 / 285 360 / 360 -160 / -160 General: Alert, Oriented x3, Cooperative, No apparent distress HEENT: Atraumatic Neck: - - Right IJ dialysis catheter in place, no signs of infection Microbiology Past 72 Hours 04/23/20 09:00 Blood Culture (Wb) - Left Hand Blood Culture - Preliminary No growth in 48 hours. 04/23/20 08:55 Blood Culture (Wb) - Left Forearm Blood Culture - Preliminary No growth in 48 hours. Laboratory Results 04/25/20 14:14: POC Glucose 289 H 04/25/20 17:35: POC Glucose 195 H 04/25/20 23:06: POC Glucose 148 H 04/26/20 05:35: WBC 20.5 H, RBC 3.90 L, Hgb 11.0 L, Hct 33.8 L, MCV 86.7, MCH 28.2, MCHC 32.5, RDW Std Deviation 45.4 H, RDW Coeff of Frances 14.3, Plt Count 198, MPV 12.3 H, Neut % (Auto) Not Reportable, Absolute Neuts (auto) 16.4 H, Absolute Lymphs (auto) 2.04, Total Counted 100, Neutrophils % (Manual) 79 H, Band Neutrophils % 1, Lymphocytes % (Manual) 10 L, Monocytes % (Manual) 7, Eosinophils % (Manual) 1, Metamyelocytes % 2 H, Diff Path Review September, Platelet Estimate ADEQUATE, RBC Morphology N CYTIC, Hypochromasia 2+ 04/26/20 05:35: Sodium 133 L, Potassium 4.0, Chloride 98, Carbon Dioxide 27.0, Anion Gap 8, BUN 46 H, Creatinine 3.99 H, Estim Creat Clear Calc 14.74, Est GFR (MDRD) Af Amer 19 L, Est GFR (MDRD) Non-Af 15 L, BUN/Creatinine Ratio 11.5, Glucose 95, Calcium 7.8 L, Total Bilirubin 0.60, AST 24, ALT 48, Alkaline Phosphatase 128 H, Total Protein 5.8 L, Albumin 2.1 L, Globulin 3.7, Albumin/Globulin Ratio 0.6 L 04/26/20 06:35: POC Glucose 86 Current Medications Acetaminophen (Acetaminophen 325 Mg Tablet) 650 mg PO Q6H PRN PRN PRN Reason: Pain Score 1-10 Last Admin: 04/23/20 09:40 Dose: 650 mg Documented by: Amlodipine Besylate (Amlodipine 10 Mg Tablet) 10 mg PO DAILY [facility] Last Admin: 04/26/20 08:41 Dose: Not Given Documented by: Aspirin (Aspirin E.C. 81 Mg Tablet) 81 mg PO DAILY [facility] Last Admin: 04/26/20 08:42 Dose: 81 mg Documented by: Cholecalciferol (Cholecalciferol (Vit D3) 1,000 Unit (25mcg)) 5,000 unit PO DAILY [facility] Last Admin: 04/26/20 08:42 Dose: 5,000 unit Documented by: Enoxaparin Sodium (Enoxaparin 30 Mg/0.3 Ml Syringe) 30 mg SC DAILY [facility] Last Admin: 04/26/20 08:42 Dose: 30 mg Documented by: Glipizide (Glipizide 10 Mg Tablet) 10 mg PO BIDAC [facility] Last Admin: 04/26/20 08:40 Dose: Not Given Documented by: Sodium Chloride () 250 mls @ 15 mls/hr IV .[id number] PRN PRN Reason: Saline Flush Last Infusion: 04/23/20 11:07 Dose: 0 mls/hr Documented by: Sodium Chloride () 250 mls @ 15 mls/hr IV .[id number] PRN PRN Reason: Additional IVPB Infusion Ceftriaxone Sodium (Rocephin) 1 gm in 50 mls @ 100 mls/hr IV Q24 [facility] Last Infusion: 04/25/20 14:42 Dose: Infused Documented by: Insulin Glargine (Insulin Glargine 100 Units/Ml Pen) 30 units SC DINNER [facility] Last Admin: 04/25/20 17:36 Dose: 30 u Documented by: Insulin Human Lispro (Insulin Lispro 100 Unit/Ml Insuln.Pen) 0 unit SC ACHS [facility]; Protocol Last Admin: 04/26/20 08:38 Dose: Not Given Documented by: Nitroglycerin (Nitroglycerin (Inpatient Use) 0.4 Mg Tab.Subl) 0.4 mg SUBLINGUAL Q5M PRN PRN Reason: CARDIAC/CHEST PAIN Ondansetron HCl (Ondansetron 4 Mg/2 Ml Vial) 4 mg IV Q6H PRN PRN PRN Reason: NAUSEA/VOMITING Last Admin: 04/22/20 08:45 Dose: 4 mg Documented by: Sodium Chloride (0.9% Saline Lock 10 Ml Syringe) 10 - 40 ml IV UD PRN PRN Reason: SALINE FLUSH Last Admin: 04/25/20 09:32 Dose: 10 ml Documented by: Medical Necessity - Tobacco Use Smoking Status: Never smoker Tobacco Use: Non-smoker Assessment/Plan All Active Problems (Last Reviewed 05/04/18 @ 09:[address] Laron Bacon MD) Swelling of both lower extremities (Acute) Hyperkalemia (Acute) Dyspnea (Acute) 84-year-old male with acute on chronic kidney disease request for dialysis catheter, leukocytosis, UTI, possible pyelonephritis Patient tentatively on the schedule for tunneled dialysis catheter on Tuesday about 2 PM. However, I will continue to follow patient's white blood cell count to make sure it improves prior to surgery. Patient no further questions this time. Tootie Franklin M.D. Pager: [phone] [facility] [address] [place] [address], Outpatient [address], [address] [place] [address] Office: [phone] Inpatient E&M: 40836 Subs Hosp L2
[2020-04-26] MEDS: 0.9% Saline Lock 10 ML Syringe IV (11:42)
[2020-04-26] MEDS: Ceftriaxone 1 GM/50 ML BAG IV (11:42)
[2020-04-26] MEDS: Insulin Lispro 100 UNIT/ML INSULN.PEN SC ×3 (11:43→20:56)
[2020-04-26 11:50] LABS: Bedside Glucose 193 mg/dL (70-110)
--- NOTE | 2020-04-26 15:05 | PN_ITS ---
Patient Problems: Active and Suspected Problems (Last Reviewed 05/04/18 @ 09:[address] Laron Bacon MD) Swelling of both lower extremities (Acute) Hyperkalemia (Acute) Dyspnea (Acute) Subjective: Patient seen and examined. He has no complaints this morning. Review of systems is otherwise negative. He has remained hemodynamically stable. He is for dialysis today. Review of systems otherwise negative. wbc is 20.5 today. Vitals/I&O's: Vital Signs Temp Pulse Resp BP Pulse Ox 98.3 F 50 L 18 133/49 H 92 04/26/20 08:28 04/26/20 12:45 04/26/20 08:28 04/26/20 08:28 04/26/20 08:28 Oxygen Flow Rate (L/min) 2 Oxygen Delivery Method Nasal Cannula Weight: 253 lb 15.983 oz Body Mass Index (BMI) 36.4 Orthostatic Vital Signs Start: 04/22/20 09:19 Freq: q24h Status: Active Protocol: Activity Type Activity Date Activity User E-Sign Co-Sign Detail Recorded Client Recorded Date Recorded By Document 04/26/20 06:47 [id number] 04/26/20 06:48 MARQUISE 04/26/20 06:47 Orthostatic Vitals Standing -Blood Pressure (90/60-120/80) 116/61 -Extremity Use Right Arm -Pulse Rate (60-100) 78 Sitting -Blood Pressure (90/60-120/80) 109/53 L -Extremity Use Right Arm -Pulse Rate (60-100) 68 Lying -Blood Pressure (90/60-120/80) 111/45 L -Extremity Use Right Arm -Pulse Rate (60-100) 77 Intake and Output for Last 24 Hours 04/24/20 04/25/20 04/26/20 23:59 23:59 23:59 Intake Total 510 / 510 910 / 910 610 / 610 Output Total 225 / 225 550 / 550 650 / 650 Balance 285 / 285 360 / 360 -40 / -40 General: Alert, Oriented x3, Cooperative, HEENT: Atraumatic, PERRLA, EOMI, Normocephalic Oral: moist Mucosa Neck: Supple, No JVD, Negative Carotid Bruits Lungs: - - diminished breath sounds bibasally; on 2L of oxygen. Cardiovascular: Regular rate, Regular Rhythm, Normal S1, Normal S2, No murmurs Abdomen: Bowel Sounds Present, Soft, Non Tender, Non-Distended, No Hepato- splenomegaly, Obese Extremities: No clubbing, No cyanosis, Edema - 2+ pitting edema of both extremities Skin: No rashes, No breakdown Musculoskeletal: No Tenderness to Palpation of Joints or Extremities; dialysis catheter in chest Lymphatic: No Cervical, Supraclavicular, or Inguinal Adenopathy Neurological: Cranial nerves II-XII grossly intact, Neuro grossly intact, Motor Exam 5/5 strength throughout Psych/Mental Status: Normal Affect, Appropriate, Alert and oriented to time, place, person, mood and affect Microbiology Past 72 Hours 04/23/20 09:00 Blood Culture (Wb) - Left Hand Blood Culture - Preliminary No growth in 48 hours. 04/23/20 08:55 Blood Culture (Wb) - Left Forearm Blood Culture - Preliminary No growth in 48 hours. Laboratory Results 04/25/20 14:14: POC Glucose 289 H 04/25/20 17:35: POC Glucose 195 H 04/25/20 23:06: POC Glucose 148 H 04/26/20 05:35: WBC 20.5 H, RBC 3.90 L, Hgb 11.0 L, Hct 33.8 L, MCV 86.7, MCH 28.2, MCHC 32.5, RDW Std Deviation 45.4 H, RDW Coeff of Frances 14.3, Plt Count 198, MPV 12.3 H, Neut % (Auto) Not Reportable, Absolute Neuts (auto) 16.4 H, Absolute Lymphs (auto) 2.04, Total Counted 100, Neutrophils % (Manual) 79 H, Band Neutrophils % 1, Lymphocytes % (Manual) 10 L, Monocytes % (Manual) 7, Eosinophils % (Manual) 1, Metamyelocytes % 2 H, Diff Path Review September, Platelet Estimate ADEQUATE, RBC Morphology N CYTIC, Hypochromasia 2+ 04/26/20 05:35: Sodium 133 L, Potassium 4.0, Chloride 98, Carbon Dioxide 27.0, Anion Gap 8, BUN 46 H, Creatinine 3.99 H, Estim Creat Clear Calc 14.74, Est GFR (MDRD) Af Amer 19 L, Est GFR (MDRD) Non-Af 15 L, BUN/Creatinine Ratio 11.5, Glucose 95, Calcium 7.8 L, Total Bilirubin 0.60, AST 24, ALT 48, Alkaline Phosphatase 128 H, Total Protein 5.8 L, Albumin 2.1 L, Globulin 3.7, Albumin/Globulin Ratio 0.6 L 04/26/20 06:35: POC Glucose 86 04/26/20 11:38: POC Glucose 193 H Current Medications Acetaminophen (Acetaminophen 325 Mg Tablet) 650 mg PO Q6H PRN PRN PRN Reason: Pain Score 1-10 Last Admin: 04/23/20 09:40 Dose: 650 mg Documented by: Amlodipine Besylate (Amlodipine 10 Mg Tablet) 10 mg PO DAILY [facility] Last Admin: 04/26/20 08:41 Dose: Not Given Documented by: Aspirin (Aspirin E.C. 81 Mg Tablet) 81 mg PO DAILY [facility] Last Admin: 04/26/20 08:42 Dose: 81 mg Documented by: Cholecalciferol (Cholecalciferol (Vit D3) 1,000 Unit (25mcg)) 5,000 unit PO DAILY [facility] Last Admin: 04/26/20 08:42 Dose: 5,000 unit Documented by: Enoxaparin Sodium (Enoxaparin 30 Mg/0.3 Ml Syringe) 30 mg SC DAILY [facility] Last Admin: 04/26/20 08:42 Dose: 30 mg Documented by: Glipizide (Glipizide 10 Mg Tablet) 10 mg PO BIDAC [facility] Last Admin: 04/26/20 08:40 Dose: Not Given Documented by: Sodium Chloride () 250 mls @ 15 mls/hr IV .[id number] PRN PRN Reason: Saline Flush Last Infusion: 04/23/20 11:07 Dose: 0 mls/hr Documented by: Sodium Chloride () 250 mls @ 15 mls/hr IV .[id number] PRN PRN Reason: Additional IVPB Infusion Ceftriaxone Sodium (Rocephin) 1 gm in 50 mls @ 100 mls/hr IV Q24 [facility] Last Admin: 04/26/20 11:42 Dose: 100 mls/hr Documented by: Insulin Glargine (Insulin Glargine 100 Units/Ml Pen) 30 units SC DINNER [facility] Last Admin: 04/25/20 17:36 Dose: 30 u Documented by: Insulin Human Lispro (Insulin Lispro 100 Unit/Ml Insuln.Pen) 0 unit SC ACHS [facility]; Protocol Last Admin: 04/26/20 11:43 Dose: 2 units Documented by: Nitroglycerin (Nitroglycerin (Inpatient Use) 0.4 Mg Tab.Subl) 0.4 mg SUBLINGUAL Q5M PRN PRN Reason: CARDIAC/CHEST PAIN Ondansetron HCl (Ondansetron 4 Mg/2 Ml Vial) 4 mg IV Q6H PRN PRN PRN Reason: NAUSEA/VOMITING Last Admin: 04/22/20 08:45 Dose: 4 mg Documented by: Sodium Chloride (0.9% Saline Lock 10 Ml Syringe) 10 - 40 ml IV UD PRN PRN Reason: SALINE FLUSH Last Admin: 04/26/20 11:42 Dose: 10 ml Documented by: STROKE Vital Signs/Narrative: Vital Signs Pulse 04/26/20 12:45 50 L Medical Necessity - Tobacco Use Smoking Status: Never smoker Tobacco Use: Non-smoker Assessment/Plan All Active Problems (Last Reviewed 05/04/18 @ 09:[address] Laron Bacon MD) Swelling of both lower extremities (Acute) Hyperkalemia (Acute) Dyspnea (Acute) # Acute heart failure with preserved EF. * 2D echo showed EF of 53%, with stage 2 diastolic dysfunction and no regional wall motion abnormalities. left atrium moderately enlarged * now on dialysis as diuresis wasnt helping much * CT chest and abdomen requested per cardiology didnt show any evidence of constrictive pericarditis * troponins x 3 are negative. * cardiology on board * fluid restriction to 1500cc daily. * monitor intake and output * #KITTY on CKD 3 * renal USG showed nonspecific renal parenchymal disease and small left renal cyst. * had temporary dialysis catheter placed for dialysis. * Cr today is 3.99 * nephrology on board * placement of tunneled catheter on hold for now, as leucocytosis is being worked up * Scheduled for tunneled dialysis catheter insertion #Right pyelonephritis * wbc is 20.5 today * blood cultures showed no growth after 48 hours * CT of the abdomen and pelvis with oral contrast showed stable bilateral perinephric stranding worse on the left side with severe left hydronephrosis and hydroureter, with diffuse bladder wall thickening * Urology reviewed patient and does not think that there is an indication for surgical intervention and advocates conservative management * ID on board * #Bradycardia * stable, and asymptomatic * beta nicole on hold. * * #UTI: * UA showed 3+ bacteria. urine cultured E coli. on IV ceftriaxone; * #Diabetes mellitus: ISS. Accuchecks ACHS and glipizide 10 mg twice daily, as well as lantus #Hypertension: lisinopril on hold o/a of KITTY on CKD. BP well controlled. DVT prophylaxis: Lovenox renally dosed CODE STATUS: Full code Disposition: will need placement. * Inpatient E&M: 25172 Subs Hosp L2
--- NOTE | 2020-04-26 17:29 | DIALYSIS ---
Hemodialysis completed, 4 hours on a 3 K bath. Fluid removed was 3200 ml. Patient tolerated well.
--- NOTE | 2020-04-26 18:27 | PN.RENAL_ITS ---
Patient Problems: Active and Suspected Problems (Last Reviewed 05/04/18 @ 09:[address] Laron Bacon MD) Swelling of both lower extremities (Acute) Hyperkalemia (Acute) Dyspnea (Acute) Subjective: no sob/cp - Physical Exam Vitals/I&O's: Vital Signs Temp Pulse Resp BP Pulse Ox 98.1 F 51 L 17 126/57 H 95 04/26/20 17:30 04/26/20 17:30 04/26/20 17:30 04/26/20 17:30 04/26/20 17:30 Oxygen Flow Rate (L/min) 2 Oxygen Delivery Method Room Air Weight: 115.212 kg Body Mass Index (BMI) 36.4 Orthostatic Vital Signs Start: 04/22/20 09:19 Freq: q24h Status: Active Protocol: Activity Type Activity Date Activity User E-Sign Co-Sign Detail Recorded Client Recorded Date Recorded By Document 04/26/20 06:47 MARQUISE [id number] 04/26/20 06:48 MARQUISE 04/26/20 06:47 Orthostatic Vitals Standing -Blood Pressure (90/60-120/80) 116/61 -Extremity Use Right Arm -Pulse Rate (60-100) 78 Sitting -Blood Pressure (90/60-120/80) 109/53 L -Extremity Use Right Arm -Pulse Rate (60-100) 68 Lying -Blood Pressure (90/60-120/80) 111/45 L -Extremity Use Right Arm -Pulse Rate (60-100) 77 Intake and Output for Last 24 Hours 04/24/20 04/25/20 04/26/20 23:59 23:59 23:59 Intake Total 510 / 510 910 / 910 900 / 900 Output Total 225 / 225 550 / 550 3950 / 3950 Balance 285 / 285 360 / 360 -3050 / -3050 General: Alert, Cooperative HEENT: Atraumatic, Normocephalic Oral: Moist Mucosa Neck: Supple, Trachea Midline Lungs: Clear to auscultation, Normal air movement Cardiovascular: Regular rate, Regular Rhythm, Normal S1, Normal S2 Abdomen: Bowel Sounds Present, Obese Extremities: Edema Microbiology Past 72 Hours 04/23/20 09:00 Blood Culture (Wb) - Left Hand Blood Culture - Preliminary No growth in 48 hours. 04/23/20 08:55 Blood Culture (Wb) - Left Forearm Blood Culture - Preliminary No growth in 48 hours. Laboratory Results 04/25/20 23:06: POC Glucose 148 H 04/26/20 05:35: WBC 20.5 H, RBC 3.90 L, Hgb 11.0 L, Hct 33.8 L, MCV 86.7, MCH 28.2, MCHC 32.5, RDW Std Deviation 45.4 H, RDW Coeff of Frances 14.3, Plt Count 198, MPV 12.3 H, Neut % (Auto) Not Reportable, Absolute Neuts (auto) 16.4 H, Absolute Lymphs (auto) 2.04, Total Counted 100, Neutrophils % (Manual) 79 H, Band Neutrophils % 1, Lymphocytes % (Manual) 10 L, Monocytes % (Manual) 7, Eosinophils % (Manual) 1, Metamyelocytes % 2 H, Diff Path Review September, Platelet Estimate ADEQUATE, RBC Morphology N CYTIC, Hypochromasia 2+ 04/26/20 05:35: Sodium 133 L, Potassium 4.0, Chloride 98, Carbon Dioxide 27.0, Anion Gap 8, BUN 46 H, Creatinine 3.99 H, Estim Creat Clear Calc 14.74, Est GFR (MDRD) Af Amer 19 L, Est GFR (MDRD) Non-Af 15 L, BUN/Creatinine Ratio 11.5, Glucose 95, Calcium 7.8 L, Total Bilirubin 0.60, AST 24, ALT 48, Alkaline Phosphatase 128 H, Total Protein 5.8 L, Albumin 2.1 L, Globulin 3.7, Albumin/Globulin Ratio 0.6 L 04/26/20 06:35: POC Glucose 86 04/26/20 11:38: POC Glucose 193 H Current Medications Acetaminophen (Acetaminophen 325 Mg Tablet) 650 mg PO Q6H PRN PRN PRN Reason: Pain Score 1-10 Last Admin: 04/23/20 09:40 Dose: 650 mg Documented by: Amlodipine Besylate (Amlodipine 10 Mg Tablet) 10 mg PO DAILY [facility] Last Admin: 04/26/20 08:41 Dose: Not Given Documented by: Aspirin (Aspirin E.C. 81 Mg Tablet) 81 mg PO DAILY [facility] Last Admin: 04/26/20 08:42 Dose: 81 mg Documented by: Cholecalciferol (Cholecalciferol (Vit D3) 1,000 Unit (25mcg)) 5,000 unit PO DAILY [facility] Last Admin: 04/26/20 08:42 Dose: 5,000 unit Documented by: Enoxaparin Sodium (Enoxaparin 30 Mg/0.3 Ml Syringe) 30 mg SC DAILY [facility] Last Admin: 04/26/20 08:42 Dose: 30 mg Documented by: Glipizide (Glipizide 10 Mg Tablet) 10 mg PO BIDAC [facility] Last Admin: 04/26/20 08:40 Dose: Not Given Documented by: Sodium Chloride () 250 mls @ 15 mls/hr IV .[id number] PRN PRN Reason: Saline Flush Last Infusion: 04/23/20 11:07 Dose: 0 mls/hr Documented by: Sodium Chloride () 250 mls @ 15 mls/hr IV .[id number] PRN PRN Reason: Additional IVPB Infusion Ceftriaxone Sodium (Rocephin) 1 gm in 50 mls @ 100 mls/hr IV Q24 [facility] Last Infusion: 04/26/20 12:20 Dose: Infused Documented by: Insulin Glargine (Insulin Glargine 100 Units/Ml Pen) 30 units SC DINNER [facility] Last Admin: 04/25/20 17:36 Dose: 30 u Documented by: Insulin Human Lispro (Insulin Lispro 100 Unit/Ml Insuln.Pen) 0 unit SC ACHS [facility]; Protocol Last Admin: 04/26/20 11:43 Dose: 2 units Documented by: Nitroglycerin (Nitroglycerin (Inpatient Use) 0.4 Mg Tab.Subl) 0.4 mg SUBLINGUAL Q5M PRN PRN Reason: CARDIAC/CHEST PAIN Ondansetron HCl (Ondansetron 4 Mg/2 Ml Vial) 4 mg IV Q6H PRN PRN PRN Reason: NAUSEA/VOMITING Last Admin: 04/22/20 08:45 Dose: 4 mg Documented by: Sodium Chloride (0.9% Saline Lock 10 Ml Syringe) 10 - 40 ml IV UD PRN PRN Reason: SALINE FLUSH Last Admin: 04/26/20 11:42 Dose: 10 ml Documented by: Medical Necessity - Tobacco Use Smoking Status: Never smoker Tobacco Use: Non-smoker Assessment/Plan All Active Problems (Last Reviewed 05/04/18 @ 09:[address] 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
[2020-04-26] MEDS: glipiZIDE 10 MG Tablet PO (18:32)
[2020-04-26 18:41] LABS: Bedside Glucose 180 mg/dL (70-110)
[2020-04-26 21:50] LABS: Bedside Glucose 262 mg/dL (70-110)
[2020-04-27] VITALS (10 sets, daily range): BP systolic 117–149; BP diastolic 40–58; PULSE 46–66; RESP 16–18; TEMP 36.3–36.9; O2SAT 94–98
[2020-04-27 05:46] LABS: Hematocrit 34.5 % (40-54); Hemoglobin 10.7 g/dL (13.0-16.5); Mean Corpuscular Hgb 27.5 pg (27.0-32.0); Mean Corpuscular Volume 88.7 fL (80-94); Mean Platelet Vol. 12.2 fl (6.2-12.0); POSITIVE COUNT YES; POSITIVE MORPHOLOGY YES; Platelet Count 239 K/mm3 (150-450); RBC Distribution Width CV 14.4 % (11.6-14.6); RBC Distribution Width SD 46.5 fl (35.1-43.9); Red Blood Count 3.89 M/mm3 (4.6-6.2); White Blood Count 18.3 K/mm3 (4.4-11.0)
[2020-04-27 06:06] LABS: Differential Indicated MANUAL DIFF
[2020-04-27 06:08] LABS: ALB/GLOB Ratio 0.6 RATIO (0.9-2.4); AST(SGOT) 29 U/L (15-37); Alanine Aminotransfer ALT/SGPT 46 U/L (16-61); Albumin, Serum 2.2 g/dL (3.2-5.0); Alkaline Phosphatase 121 U/L (45-117); Anion Gap 6 (5-15); BUN 28 mg/dL (7-18); BUN/Creat Ratio 9.5 RATIO (10-20); Chloride 101 mmol/L (98-107); Creatinine, Serum 2.96 mg/dL (0.70-1.30); EST Glomerular Filtration Rate 22 mL/min (>60); Est Glom Filt Rate - Afr Amer 26 mL/min (>60); Estimated Creatinine Clearance 19.87 ml/min; Globulin 3.9 g/dL (2.2-4.2); Glucose 138 mg/dL (74-106); Protein, Total 6.1 g/dL (6.4-8.2); Sodium Level 134 mmol/L (136-145)
[2020-04-27 06:28] LABS: Neutrophil-Band 1 % (0-5); Neutrophil-Segmented 87 % (47-70); Total Cells Counted 100 (MANUAL DIFF)
[2020-04-27 06:29] LABS: Absolute Lymphocyte Count 0.92 X10^3/uL (0.83-4.51); Absolute Neutrophil Count 16.1 X10^3/uL (2.0-7.7); Basophil 1 % (0-1); Eosinophil 1 % (0-5); Lymphocyte 5 % (19-41); Lymphocyte # 0.92 X10^3/ul (4.0); Metamyelocyte 1 % (0-1); Monocyte 4 % (0-10); Neutrophil # 16.11 X10^3/uL (2.7-7.7); Platelet Estimate ADEQUATE (ADEQ); Red Cell Morphology NORM C+C NORMAL (NORM C&C)
[2020-04-27 07:00] LABS: Bedside Glucose 140 mg/dL (70-110)
[2020-04-27] MEDS: glipiZIDE 10 MG Tablet PO ×2 (08:57→16:38)
[2020-04-27] MEDS: Aspirin E.C. 81 MG Tablet PO (08:58)
[2020-04-27] MEDS: Enoxaparin 30 MG/0.3 ML Syringe SC (08:58)
--- NOTE | 2020-04-27 09:30 | PN.SURG_ITS ---
Patient Problems: Active and Suspected Problems (Last Reviewed 05/04/18 @ 09:[address] Laron Bacon MD) Swelling of both lower extremities (Acute) Hyperkalemia (Acute) Dyspnea (Acute) Subjective: Patient's white blood count still 18 continue antibiotics per primary - Physical Exam Vitals/I&O's: Vital Signs Temp Pulse Resp BP Pulse Ox 98.4 F 53 L 17 149/58 H 98 04/27/20 08:39 04/27/20 08:39 04/27/20 08:39 04/27/20 08:39 04/27/20 08:39 Oxygen Flow Rate (L/min) 2 Oxygen Delivery Method Nasal Cannula Weight: 236 lb 15.951 oz Body Mass Index (BMI) 36.4 Orthostatic Vital Signs Start: 04/22/20 09:19 Freq: q24h Status: Active Protocol: Activity Type Activity Date Activity User E-Sign Co-Sign Detail Recorded Client Recorded Date Recorded By Document 04/26/20 06:47 KK [id number] 04/26/20 06:48 KK 04/26/20 06:47 Orthostatic Vitals Standing -Blood Pressure (90/60-120/80) 116/61 -Extremity Use Right Arm -Pulse Rate (60-100) 78 Sitting -Blood Pressure (90/60-120/80) 109/53 L -Extremity Use Right Arm -Pulse Rate (60-100) 68 Lying -Blood Pressure (90/60-120/80) 111/45 L -Extremity Use Right Arm -Pulse Rate (60-100) 77 Intake and Output for Last 24 Hours 04/25/20 04/26/20 04/27/20 23:59 23:59 23:59 Intake Total 910 / 910 1120 / 1120 Output Total 550 / 550 3975 / 3975 150 / 150 Balance 360 / 360 -2855 / -2855 -150 / -150 Microbiology Past 72 Hours 04/23/20 09:00 Blood Culture (Wb) - Left Hand Blood Culture - Preliminary No growth in 48 hours. 04/23/20 08:55 Blood Culture (Wb) - Left Forearm Blood Culture - Preliminary No growth in 48 hours. Laboratory Results 04/26/20 11:38: POC Glucose 193 H 04/26/20 18:18: POC Glucose 180 H 04/26/20 20:51: POC Glucose 262 H 04/27/20 05:07: WBC 18.3 H, RBC 3.89 L, Hgb 10.7 L, Hct 34.5 L, MCV 88.7, MCH 27.5, MCHC 31.0 L, RDW Std Deviation 46.5 H, RDW Coeff of Frances 14.4, Plt Count 239, MPV 12.2 H, Neut % (Auto) Not Reportable, Absolute Neuts (auto) 16.1 H, Absolute Lymphs (auto) 0.92, Total Counted 100, Neutrophils % (Manual) 87 H, Band Neutrophils % 1, Lymphocytes % (Manual) 5 L, Monocytes % (Manual) 4, Eosinophils % (Manual) 1, Basophils % (Manual) 1, Metamyelocytes % 1, Diff Path Review September, Platelet Estimate ADEQUATE, RBC Morphology NORM C+C 04/27/20 05:07: Sodium 134 L, Potassium 4.0, Chloride 101, Carbon Dioxide 27.0, Anion Gap 6, BUN 28 H, Creatinine 2.96 H, Estim Creat Clear Calc 19.87, Est GFR (MDRD) Af Amer 26 L, Est GFR (MDRD) Non-Af 22 L, BUN/Creatinine Ratio 9.5 L, Glucose 138 H, Calcium 8.0 L, Total Bilirubin 0.50, AST 29, ALT 46, Alkaline Phosphatase 121 H, Total Protein 6.1 L, Albumin 2.2 L, Globulin 3.9, Albumin/Globulin Ratio 0.6 L 04/27/20 06:43: POC Glucose 140 H Current Medications Acetaminophen (Acetaminophen 325 Mg Tablet) 650 mg PO Q6H PRN PRN PRN Reason: Pain Score 1-10 Last Admin: 04/23/20 09:40 Dose: 650 mg Documented by: Amlodipine Besylate (Amlodipine 10 Mg Tablet) 10 mg PO DAILY [facility] Last Admin: 04/27/20 08:58 Dose: Not Given Documented by: Aspirin (Aspirin E.C. 81 Mg Tablet) 81 mg PO DAILY [facility] Last Admin: 04/27/20 08:58 Dose: 81 mg Documented by: Cholecalciferol (Cholecalciferol (Vit D3) 1,000 Unit (25mcg)) 5,000 unit PO DAILY [facility] Last Admin: 04/27/20 08:58 Dose: 5,000 unit Documented by: Enoxaparin Sodium (Enoxaparin 30 Mg/0.3 Ml Syringe) 30 mg SC DAILY [facility] Last Admin: 04/27/20 08:58 Dose: 30 mg Documented by: Glipizide (Glipizide 10 Mg Tablet) 10 mg PO BIDAC [facility] Last Admin: 04/27/20 08:57 Dose: 10 mg Documented by: Sodium Chloride () 250 mls @ 15 mls/hr IV .[id number] PRN PRN Reason: Saline Flush Last Infusion: 04/23/20 11:07 Dose: 0 mls/hr Documented by: Sodium Chloride () 250 mls @ 15 mls/hr IV .[id number] PRN PRN Reason: Additional IVPB Infusion Ceftriaxone Sodium (Rocephin) 1 gm in 50 mls @ 100 mls/hr IV Q24 [facility] Last Infusion: 04/26/20 12:20 Dose: Infused Documented by: Insulin Glargine (Insulin Glargine 100 Units/Ml Pen) 30 units SC DINNER [facility] Last Admin: 04/26/20 18:30 Dose: 30 u Documented by: Insulin Human Lispro (Insulin Lispro 100 Unit/Ml Insuln.Pen) 0 unit SC ACHS [facility]; Protocol Last Admin: 04/27/20 06:49 Dose: Not Given Documented by: Nitroglycerin (Nitroglycerin (Inpatient Use) 0.4 Mg Tab.Subl) 0.4 mg SUBLINGUAL Q5M PRN PRN Reason: CARDIAC/CHEST PAIN Ondansetron HCl (Ondansetron 4 Mg/2 Ml Vial) 4 mg IV Q6H PRN PRN PRN Reason: NAUSEA/VOMITING Last Admin: 04/22/20 08:45 Dose: 4 mg Documented by: Sodium Chloride (0.9% Saline Lock 10 Ml Syringe) 10 - 40 ml IV UD PRN PRN Reason: SALINE FLUSH Last Admin: 04/26/20 11:42 Dose: 10 ml Documented by: Medical Necessity - Tobacco Use Smoking Status: Never smoker Tobacco Use: Non-smoker Assessment/Plan All Active Problems (Last Reviewed 05/04/18 @ 09:[address] Laron Bacon MD) Swelling of both lower extremities (Acute) Hyperkalemia (Acute) Dyspnea (Acute) 84-year-old male with acute on chronic kidney disease request for dialysis catheter, leukocytosis, UTI, possible pyelonephritis Patient's white blood count still 18 will not plan to proceed on Tuesday with the tunneled dialysis catheter will check labs tomorrow to see if possible Tuesday or Tuesday. Tootie Franklin M.D. Pager: [phone] [facility] [address] [place] [address], [facility], [address] [place] [address] Office: [phone] Inpatient E&M: 62805 Subs Hosp L1
[2020-04-27] MEDS: Insulin Lispro 100 UNIT/ML INSULN.PEN SC ×3 (11:50→22:17)
[2020-04-27] MEDS: Ceftriaxone 1 GM/50 ML BAG IV (11:50)
--- NOTE | 2020-04-27 13:17 | PN_ITS ---
Patient Problems: Active and Suspected Problems (Last Reviewed 05/04/18 @ 09:[address] Laron Bacon MD) Swelling of both lower extremities (Acute) Hyperkalemia (Acute) Dyspnea (Acute) Subjective: Patient seen and examined. He complains of feeling tired and states dialysis really wore him out yesterday. He has no other complaints. Review of systems otherwise negative. He remains mildly bradycardic. Creatinine is down to 2.96 today. WBC is 18.3. Vitals/I&O's: Vital Signs Temp Pulse Resp BP Pulse Ox 98.4 F 53 L 17 149/58 H 98 04/27/20 08:39 04/27/20 08:39 04/27/20 08:39 04/27/20 08:39 04/27/20 08:39 Oxygen Flow Rate (L/min) 2 Oxygen Delivery Method Nasal Cannula Weight: 236 lb 15.951 oz Body Mass Index (BMI) 36.4 Orthostatic Vital Signs Start: 04/22/20 09:19 Freq: q24h Status: Active Protocol: Activity Type Activity Date Activity User E-Sign Co-Sign Detail Recorded Client Recorded Date Recorded By Document 04/26/20 06:47 KK [id number] 04/26/20 06:48 KK 04/26/20 06:47 Orthostatic Vitals Standing -Blood Pressure (90/60-120/80) 116/61 -Extremity Use Right Arm -Pulse Rate (60-100) 78 Sitting -Blood Pressure (90/60-120/80) 109/53 L -Extremity Use Right Arm -Pulse Rate (60-100) 68 Lying -Blood Pressure (90/60-120/80) 111/45 L -Extremity Use Right Arm -Pulse Rate (60-100) 77 Intake and Output for Last 24 Hours 04/25/20 04/26/20 04/27/20 23:59 23:59 23:59 Intake Total 910 / 910 1120 / 1120 250 / 250 Output Total 550 / 550 3975 / 3975 250 / 250 Balance 360 / 360 -2855 / -2855 0 / 0 General: Alert, Oriented x3, Cooperative, HEENT: Atraumatic, PERRLA, EOMI, Normocephalic Oral: moist Mucosa Neck: Supple, No JVD, Negative Carotid Bruits Lungs: - - diminished breath sounds bibasally; on 2L of oxygen. Cardiovascular: Regular rate, Regular Rhythm, Normal S1, Normal S2, No murmurs Abdomen: Bowel Sounds Present, Soft, Non Tender, Non-Distended, No Hepato- splenomegaly, Obese Extremities: No clubbing, No cyanosis, Edema - 2+ pitting edema of both extremities Skin: No rashes, No breakdown Musculoskeletal: No Tenderness to Palpation of Joints or Extremities; dialysis catheter in chest Lymphatic: No Cervical, Supraclavicular, or Inguinal Adenopathy Neurological: Cranial nerves II-XII grossly intact, Neuro grossly intact, Motor Exam 5/5 strength throughout Psych/Mental Status: Normal Affect, Appropriate, Alert and oriented to time, place, person, mood and affect Microbiology Past 72 Hours 04/23/20 09:00 Blood Culture (Wb) - Left Hand Blood Culture - Preliminary No growth in 48 hours. 04/23/20 08:55 Blood Culture (Wb) - Left Forearm Blood Culture - Preliminary No growth in 48 hours. Laboratory Results 04/26/20 18:18: POC Glucose 180 H 04/26/20 20:51: POC Glucose 262 H 04/27/20 05:07: WBC 18.3 H, RBC 3.89 L, Hgb 10.7 L, Hct 34.5 L, MCV 88.7, MCH 27.5, MCHC 31.0 L, RDW Std Deviation 46.5 H, RDW Coeff of Frances 14.4, Plt Count 239, MPV 12.2 H, Neut % (Auto) Not Reportable, Absolute Neuts (auto) 16.1 H, Absolute Lymphs (auto) 0.92, Total Counted 100, Neutrophils % (Manual) 87 H, Band Neutrophils % 1, Lymphocytes % (Manual) 5 L, Monocytes % (Manual) 4, Eosinophils % (Manual) 1, Basophils % (Manual) 1, Metamyelocytes % 1, Diff Path Review September, Platelet Estimate ADEQUATE, RBC Morphology NORM C+C 04/27/20 05:07: Sodium 134 L, Potassium 4.0, Chloride 101, Carbon Dioxide 27.0, Anion Gap 6, BUN 28 H, Creatinine 2.96 H, Estim Creat Clear Calc 19.87, Est GFR (MDRD) Af Amer 26 L, Est GFR (MDRD) Non-Af 22 L, BUN/Creatinine Ratio 9.5 L, Glucose 138 H, Calcium 8.0 L, Total Bilirubin 0.50, AST 29, ALT 46, Alkaline Phosphatase 121 H, Total Protein 6.1 L, Albumin 2.2 L, Globulin 3.9, Albumin/Globulin Ratio 0.6 L 04/27/20 06:43: POC Glucose 140 H Diagnostic Data Renal Ultrasound 04/18/20 15:20 IMPRESSION: Nonspecific renal parenchymal disease. Small left renal cyst. Electronically Signed: Abhijeet Moya MD at 20:36 EST , Service support , Abdomen/Pelvis CT 04/20/20 10:35 IMPRESSION: 1. Left renal mild hydronephrosis and ureteral dilatation with perinephric stranding concerning for underlying pyelonephritis in the appropriate clinical setting. No definitive ureteral stone is evident. There is compounding chronic bilateral echogenic stranding. Ill-defined hypodensity of the left kidney is also noted likely consistent with cysts though too small to fully characterize. 2. No evidence of pericardial effusion or large intra-abdominal ascites. Electronically Signed: Javan Park DO at 11:46 EST , Service support , Chest CT 04/20/20 10:35 IMPRESSION: 1. Chronic appearing right greater than left peripheral interstitial markings with peripheral areas of likely scarring changes with likely right main fissure 7 mm chronic appearing nodule adjacent to the pleural based scarring is noted. Recommend follow-up imaging in 6-12 months to document stability. Otherwise no evidence of acute focal airspace disease or acute process. Electronically Signed: Javan Park DO at 11:51 EST , Service support , Chest X-Ray 04/20/20 10:35 IMPRESSION: Cardiomegaly with low volume inspiration is unchanged. Insertion of dialysis catheter with no complications. Electronically Signed: Ronnell Srivastava MD at 12:11 EST , Service support , Abdomen CT 04/24/20 10:51 IMPRESSION: Stable bilateral perinephric stranding worse on the left side with severe left hydronephrosis and hydroureter down to the insertion into the left side of bladder. There is diffuse bladder wall thickening although the bladder is empty. A CHAMORRO catheter is seen within the urinary bladder. Electronically Signed: Kareem Yao, at 14:27 EST , Service support , Current Medications Acetaminophen (Acetaminophen 325 Mg Tablet) 650 mg PO Q6H PRN PRN PRN Reason: Pain Score 1-10 Last Admin: 04/23/20 09:40 Dose: 650 mg Documented by: Amlodipine Besylate (Amlodipine 10 Mg Tablet) 10 mg PO DAILY [facility] Last Admin: 04/27/20 08:58 Dose: Not Given Documented by: Aspirin (Aspirin E.C. 81 Mg Tablet) 81 mg PO DAILY [facility] Last Admin: 04/27/20 08:58 Dose: 81 mg Documented by: Cholecalciferol (Cholecalciferol (Vit D3) 1,000 Unit (25mcg)) 5,000 unit PO DAILY [facility] Last Admin: 04/27/20 08:58 Dose: 5,000 unit Documented by: Enoxaparin Sodium (Enoxaparin 30 Mg/0.3 Ml Syringe) 30 mg SC DAILY [facility] Last Admin: 04/27/20 08:58 Dose: 30 mg Documented by: Glipizide (Glipizide 10 Mg Tablet) 10 mg PO BIDAC [facility] Last Admin: 04/27/20 08:57 Dose: 10 mg Documented by: Sodium Chloride () 250 mls @ 15 mls/hr IV .[id number] PRN PRN Reason: Saline Flush Last Infusion: 04/23/20 11:07 Dose: 0 mls/hr Documented by: Sodium Chloride () 250 mls @ 15 mls/hr IV .[id number] PRN PRN Reason: Additional IVPB Infusion Ceftriaxone Sodium (Rocephin) 1 gm in 50 mls @ 100 mls/hr IV Q24 [facility] Last Admin: 04/27/20 11:50 Dose: 100 mls/hr Documented by: Insulin Glargine (Insulin Glargine 100 Units/Ml Pen) 30 units SC [facility] Last Admin: 04/26/20 18:30 Dose: 30 u Documented by: Insulin Human Lispro (Insulin Lispro 100 Unit/Ml Insuln.Pen) 0 unit SC ACHS [facility]; Protocol Last Admin: 04/27/20 11:50 Dose: 3 units Documented by: Nitroglycerin (Nitroglycerin (Inpatient Use) 0.4 Mg Tab.Subl) 0.4 mg SUBLINGUAL Q5M PRN PRN Reason: CARDIAC/CHEST PAIN Ondansetron HCl (Ondansetron 4 Mg/2 Ml Vial) 4 mg IV Q6H PRN PRN PRN Reason: NAUSEA/VOMITING Last Admin: 04/22/20 08:45 Dose: 4 mg Documented by: Sodium Chloride (0.9% Saline Lock 10 Ml Syringe) 10 - 40 ml IV UD PRN PRN Reason: SALINE FLUSH Last Admin: 04/26/20 11:42 Dose: 10 ml Documented by: Medical Necessity - Tobacco Use Smoking Status: Never smoker Tobacco Use: Non-smoker Assessment/Plan All Active Problems (Last Reviewed 05/04/18 @ 09:[address] Laron Bacon MD) Swelling of both lower extremities (Acute) Hyperkalemia (Acute) Dyspnea (Acute) # Acute heart failure with preserved EF. * 2D echo showed EF of 53%, with stage 2 diastolic dysfunction and no regional wall motion abnormalities. left atrium moderately enlarged * now on dialysis * troponins x 3 are negative. * cardiology on board * fluid restriction to 1500cc daily. * monitor intake and output * #KITTY on CKD 3 * renal USG showed nonspecific renal parenchymal disease and small left renal cyst. * Cr today is 3.99 * nephrology on board * placement of tunneled catheter on hold for now, as leucocytosis is being worked up * #Right pyelonephritis * wbc is 18 today * blood cultures showed no growth after 48 hours; urine cultured E coli * CT of the abdomen and pelvis with oral contrast showed stable bilateral perinephric stranding worse on the left side with severe left hydronephrosis and hydroureter, with diffuse bladder wall thickening * Urology reviewed patient and does not think that there is an indication for surgical intervention and advocates conservative management * ID on board * on IV ceftriaxone * #Bradycardia * stable, and asymptomatic * beta nicole on hold. #Diabetes mellitus: ISS. Accuchecks ACHS and glipizide 10 mg twice daily, as well as lantus 30 units qpm #Hypertension: lisinopril on hold o/a of KITTY on CKD. BP fairly well controlled DVT prophylaxis: Lovenox renally dosed CODE STATUS: Full code Disposition: will likely need placement once medically stable * Inpatient E&M: 36638 Subs Hosp L2
[2020-04-27 13:41] LABS: Bedside Glucose 233 mg/dL (70-110)
--- NOTE | 2020-04-27 15:56 | PCM.PN.REN ---
Patient Problems: Active and Suspected Problems (Last Reviewed 05/04/18 @ 09:[address] Laron Bacon MD) Swelling of both lower extremities (Acute) Hyperkalemia (Acute) Dyspnea (Acute) Subjective: no sob/cp no c/o - Physical Exam Vitals/I&O's: Vital Signs Temp Pulse Resp BP Pulse Ox 98.4 F 53 L 17 149/58 H 94 04/27/20 08:39 04/27/20 08:39 04/27/20 08:39 04/27/20 08:39 04/27/20 14:20 Oxygen Flow Rate (L/min) 1 Oxygen Delivery Method Nasal Cannula Weight: 107.5 kg Body Mass Index (BMI) 36.4 Orthostatic Vital Signs Start: 04/22/20 09:19 Freq: q24h Status: Active Protocol: Activity Type Activity Date Activity User E-Sign Co-Sign Detail Recorded Client Recorded Date Recorded By Document 04/26/20 06:47 KK [id number] 04/26/20 06:48 KK 04/26/20 06:47 Orthostatic Vitals Standing -Blood Pressure (90/60-120/80) 116/61 -Extremity Use Right Arm -Pulse Rate (60-100) 78 Sitting -Blood Pressure (90/60-120/80) 109/53 L -Extremity Use Right Arm -Pulse Rate (60-100) 68 Lying -Blood Pressure (90/60-120/80) 111/45 L -Extremity Use Right Arm -Pulse Rate (60-100) 77 Intake and Output for Last 24 Hours 04/25/20 04/26/20 04/27/20 23:59 23:59 23:59 Intake Total 910 / 910 1120 / 1120 250 / 250 Output Total 550 / 550 3975 / 3975 250 / 250 Balance 360 / 360 -2855 / -2855 0 / 0 General: Alert, Cooperative HEENT: Atraumatic, Normocephalic Oral: Moist Mucosa Neck: Supple, Trachea Midline Lungs: Clear to auscultation, Normal air movement Cardiovascular: Regular rate, Regular Rhythm Abdomen: Bowel Sounds Present, Soft, Non Tender, Obese Extremities: No cyanosis, Edema Microbiology Past 72 Hours 04/23/20 09:00 Blood Culture (Wb) - Left Hand Blood Culture - Preliminary No growth in 48 hours. 04/23/20 08:55 Blood Culture (Wb) - Left Forearm Blood Culture - Preliminary No growth in 48 hours. Laboratory Results 04/26/20 18:18: POC Glucose 180 H 04/26/20 20:51: POC Glucose 262 H 04/27/20 05:07: WBC 18.3 H, RBC 3.89 L, Hgb 10.7 L, Hct 34.5 L, MCV 88.7, MCH 27.5, MCHC 31.0 L, RDW Std Deviation 46.5 H, RDW Coeff of Frances 14.4, Plt Count 239, MPV 12.2 H, Neut % (Auto) Not Reportable, Absolute Neuts (auto) 16.1 H, Absolute Lymphs (auto) 0.92, Total Counted 100, Neutrophils % (Manual) 87 H, Band Neutrophils % 1, Lymphocytes % (Manual) 5 L, Monocytes % (Manual) 4, Eosinophils % (Manual) 1, Basophils % (Manual) 1, Metamyelocytes % 1, Diff Path Review September, Platelet Estimate ADEQUATE, RBC Morphology NORM C+C 04/27/20 05:07: Sodium 134 L, Potassium 4.0, Chloride 101, Carbon Dioxide 27.0, Anion Gap 6, BUN 28 H, Creatinine 2.96 H, Estim Creat Clear Calc 19.87, Est GFR (MDRD) Af Amer 26 L, Est GFR (MDRD) Non-Af 22 L, BUN/Creatinine Ratio 9.5 L, Glucose 138 H, Calcium 8.0 L, Total Bilirubin 0.50, AST 29, ALT 46, Alkaline Phosphatase 121 H, Total Protein 6.1 L, Albumin 2.2 L, Globulin 3.9, Albumin/Globulin Ratio 0.6 L 04/27/20 06:43: POC Glucose 140 H 04/27/20 11:42: POC Glucose 233 H Current Medications Acetaminophen (Acetaminophen 325 Mg Tablet) 650 mg PO Q6H PRN PRN PRN Reason: Pain Score 1-10 Last Admin: 04/23/20 09:40 Dose: 650 mg Documented by: Amlodipine Besylate (Amlodipine 10 Mg Tablet) 10 mg PO DAILY [facility] Last Admin: 04/27/20 08:58 Dose: Not Given Documented by: Aspirin (Aspirin E.C. 81 Mg Tablet) 81 mg PO DAILY [facility] Last Admin: 04/27/20 08:58 Dose: 81 mg Documented by: Cholecalciferol (Cholecalciferol (Vit D3) 1,000 Unit (25mcg)) 5,000 unit PO DAILY [facility] Last Admin: 04/27/20 08:58 Dose: 5,000 unit Documented by: Enoxaparin Sodium (Enoxaparin 30 Mg/0.3 Ml Syringe) 30 mg SC DAILY [facility] Last Admin: 04/27/20 08:58 Dose: 30 mg Documented by: Glipizide (Glipizide 10 Mg Tablet) 10 mg PO BIDAC [facility] Last Admin: 04/27/20 08:57 Dose: 10 mg Documented by: Sodium Chloride () 250 mls @ 15 mls/hr IV .[id number] PRN PRN Reason: Saline Flush Last Infusion: 04/23/20 11:07 Dose: 0 mls/hr Documented by: Sodium Chloride () 250 mls @ 15 mls/hr IV .[id number] PRN PRN Reason: Additional IVPB Infusion Ceftriaxone Sodium (Rocephin) 1 gm in 50 mls @ 100 mls/hr IV Q24 [facility] Last Admin: 04/27/20 11:50 Dose: 100 mls/hr Documented by: Insulin Glargine (Insulin Glargine 100 Units/Ml Pen) 30 units SC DINNER [facility] Last Admin: 04/26/20 18:30 Dose: 30 u Documented by: Insulin Human Lispro (Insulin Lispro 100 Unit/Ml Insuln.Pen) 0 unit SC ACHS [facility]; Protocol Last Admin: 04/27/20 11:50 Dose: 3 units Documented by: Nitroglycerin (Nitroglycerin (Inpatient Use) 0.4 Mg Tab.Subl) 0.4 mg SUBLINGUAL Q5M PRN PRN Reason: CARDIAC/CHEST PAIN Ondansetron HCl (Ondansetron 4 Mg/2 Ml Vial) 4 mg IV Q6H PRN PRN PRN Reason: NAUSEA/VOMITING Last Admin: 04/22/20 08:45 Dose: 4 mg Documented by: Sodium Chloride (0.9% Saline Lock 10 Ml Syringe) 10 - 40 ml IV UD PRN PRN Reason: SALINE FLUSH Last Admin: 04/26/20 11:42 Dose: 10 ml Documented by: Medical Necessity - Tobacco Use Smoking Status: Never smoker Tobacco Use: Non-smoker Assessment/Plan All Active Problems (Last Reviewed 05/04/18 @ 09:[address] 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
[2020-04-27 16:50] LABS: Bedside Glucose 231 mg/dL (70-110)
[2020-04-27] MEDS: 0.9% Saline Lock 10 ML Syringe IV (22:17)
[2020-04-27 22:31] LABS: Bedside Glucose 201 mg/dL (70-110)
[2020-04-28] VITALS (10 sets, daily range): BP systolic 113–137; BP diastolic 34–55; PULSE 47–76; RESP 14–24; TEMP 36.3–36.8; O2SAT 94–97
[2020-04-28 06:41] LABS: Bedside Glucose 134 mg/dL (70-110)
[2020-04-28 06:43] LABS: Absolute Lymphocyte Count 1.27 X10^3/uL (0.83-4.51); Absolute Neutrophil Count 13.2 X10^3/uL (2.0-7.7); Basophil# 0.09 X10^3/uL; Basophil% 0.5 % (0-1); Eosinophil# 0.26 X10^3/uL; Eosinophils% 1.5 % (0-5); Hemoglobin 11.2 g/dL (13.0-16.5); Lymphocyte # 1.27 X10^3/ul (4.0); Lymphocyte % 7.6 % (19-41); Mean Corp Hgb Conc 31.1 g/dL (32-36); Mean Corpuscular Hgb 27.8 pg (27.0-32.0); Mean Corpuscular Volume 89.3 fL (80-94); Mean Platelet Vol. 11.3 fl (6.2-12.0); Monocyte# 1.24 X10^3/uL; Monocyte% 7.4 % (0-10); NRBC Flagged by Analyzer 0 % (0-5); Neutrophil # 13.18 X10^3/uL (2.7-7.7); Neutrophil % 78.4 % (47-70); Platelet Count 305 K/mm3 (150-450); RBC Distribution Width CV 14.3 % (11.6-14.6); RBC Distribution Width SD 47.1 fl (35.1-43.9); Red Blood Count 4.03 M/mm3 (4.6-6.2); White Blood Count 16.8 K/mm3 (4.4-11.0)
[2020-04-28 07:22] LABS: ALB/GLOB Ratio 0.5 RATIO (0.9-2.4); AST(SGOT) 23 U/L (15-37); Alanine Aminotransfer ALT/SGPT 48 U/L (16-61); Albumin, Serum 2.3 g/dL (3.2-5.0); Alkaline Phosphatase 115 U/L (45-117); Anion Gap 7 (5-15); BUN 39 mg/dL (7-18); Calcium,Total 8.2 mg/dL (8.5-10.1); Chloride 100 mmol/L (98-107); Creatinine, Serum 3.89 mg/dL (0.70-1.30); EST Glomerular Filtration Rate 16 mL/min (>60); Est Glom Filt Rate - Afr Amer 19 mL/min (>60); Estimated Creatinine Clearance 15.12 ml/min; Globulin 4.3 g/dL (2.2-4.2); Glucose 140 mg/dL (74-106); Potassium 4.6 mmol/L (3.5-5.1); Protein, Total 6.6 g/dL (6.4-8.2); Sodium Level 133 mmol/L (136-145)
[2020-04-28] MEDS: Enoxaparin 30 MG/0.3 ML Syringe SC (09:15)
[2020-04-28] MEDS: amLODIPine 10 MG Tablet PO (09:15)
[2020-04-28] MEDS: Aspirin E.C. 81 MG Tablet PO (09:15)
[2020-04-28] MEDS: glipiZIDE 10 MG Tablet PO ×2 (09:15→16:33)
[2020-04-28] MEDS: Ceftriaxone 1 GM/50 ML BAG IV (09:21)
--- NOTE | 2020-04-28 10:53 | CASEMGMT ---
SW sent updates to [facility]. SW still following for possible d/c to SNF. Amy VALDERRAMA MSW
--- NOTE | 2020-04-28 11:23 | PN.RENAL_ITS ---
Patient Problems: Active and Suspected Problems (Last Reviewed 05/04/18 @ 09:[address] Laron Bacon MD) Swelling of both lower extremities (Acute) Hyperkalemia (Acute) Dyspnea (Acute) Subjective: no new complaints - Physical Exam Vitals/I&O's: Vital Signs Temp Pulse Resp BP Pulse Ox 97.5 F L 76 16 127/47 H 97 04/28/20 08:56 04/28/20 08:56 04/28/20 08:56 04/28/20 08:56 04/28/20 08:56 Oxygen Flow Rate (L/min) 1 Oxygen Delivery Method Room Air Weight: 107.5 kg Body Mass Index (BMI) 36.4 Orthostatic Vital Signs Start: 04/22/20 09:19 Freq: q24h Status: Active Protocol: Activity Type Activity Date Activity User E-Sign Co-Sign Detail Recorded Client Recorded Date Recorded By Document 04/26/20 06:47 MARQUISE [id number] 04/26/20 06:48 KK 04/26/20 06:47 Orthostatic Vitals Standing -Blood Pressure (90/60-120/80 mm Hg) 116/61 -Extremity Use Right Arm -Pulse Rate (60-100 beats/min) 78 Sitting -Blood Pressure (90/60-120/80 mm Hg) 109/53 L -Extremity Use Right Arm -Pulse Rate (60-100 beats/min) 68 Lying -Blood Pressure (90/60-120/80 mm Hg) 111/45 L -Extremity Use Right Arm -Pulse Rate (60-100 beats/min) 77 Intake and Output for Last 24 Hours 04/26/20 04/27/20 04/28/20 23:59 23:59 23:59 Intake Total 1120 / 1120 540 / 760 270 / 270 Output Total 3975 / 3975 350 / 450 150 / 150 Balance -2855 / -2855 190 / 310 120 / 120 General: Alert, Oriented x3, Cooperative HEENT: Atraumatic, PERRLA, EOMI, Normocephalic Neck: Supple, No JVD, Negative Carotid Bruits Lungs: Clear to auscultation, Normal air movement Cardiovascular: Regular rate, No murmurs Abdomen: Bowel Sounds Present, Soft, Non Tender Extremities: Capillary Refill Less than 3 Seconds, Edema Skin: No rashes, No breakdown Musculoskeletal: No Tenderness to Palpation of Joints or Extremities Neurological: Cranial nerves II-XII grossly intact Psych/Mental Status: Normal Affect, Appropriate Microbiology Past 72 Hours 04/23/20 08:55 Blood Culture (Wb) - Left Forearm Blood Culture - Final No growth in 5 days. 04/23/20 09:00 Blood Culture (Wb) - Left Hand Blood Culture - Final No growth in 5 days. Laboratory Results 04/27/20 11:42: POC Glucose 233 H 04/27/20 16:36: POC Glucose 231 H 04/27/20 22:14: POC Glucose 201 H 04/28/20 06:24: POC Glucose 134 H 04/28/20 06:35: WBC 16.8 H, RBC 4.03 L, Hgb 11.2 L, Hct 36.0 L, MCV 89.3, MCH 27.8, MCHC 31.1 L, RDW Std Deviation 47.1 H, RDW Coeff of Frances 14.3, Plt Count 305, MPV 11.3, Immature Gran % (Auto) 4.600 H, Neut % (Auto) 78.4 H, Lymph % (Auto) 7.6 L, [place] % (Auto) 7.4, Eos % (Auto) 1.5, Baso % (Auto) 0.5, Absolute Neuts (auto) 13.2 H, Absolute Lymphs (auto) 1.27, Nucleated RBC % 0 04/28/20 06:35: Sodium 133 L, Potassium 4.6, Chloride 100, Carbon Dioxide 26.0, Anion Gap 7, BUN 39 H, Creatinine 3.89 H, Estim Creat Clear Calc 15.12, Est GFR (MDRD) Af Amer 19 L, Est GFR (MDRD) Non-Af 16 L, BUN/Creatinine Ratio 10.0, Glucose 140 H, Calcium 8.2 L, Total Bilirubin 0.50, AST 23, ALT 48, Alkaline Phosphatase 115, Total Protein 6.6, Albumin 2.3 L, Globulin 4.3 H, Albumin/Globulin Ratio 0.5 L Current Medications Acetaminophen (Acetaminophen 325 Mg Tablet) 650 mg PO Q6H PRN PRN PRN Reason: Pain Score 1-10 Last Admin: 04/23/20 09:40 Dose: 650 mg Documented by: Amlodipine Besylate (Amlodipine 10 Mg Tablet) 10 mg PO DAILY [facility] Last Admin: 04/28/20 09:15 Dose: 10 mg Documented by: Aspirin (Aspirin E.C. 81 Mg Tablet) 81 mg PO DAILY [facility] Last Admin: 04/28/20 09:15 Dose: 81 mg Documented by: Cholecalciferol (Cholecalciferol (Vit D3) 1,000 Unit (25mcg)) 5,000 unit PO DA DIAMANTE [facility] Last Admin: 04/28/20 09:15 Dose: 5,000 unit Documented by: Enoxaparin Sodium (Enoxaparin 30 Mg/0.3 Ml Syringe) 30 mg SC DAILY [facility] Last Admin: 04/28/20 09:15 Dose: 30 mg Documented by: Glipizide (Glipizide 10 Mg Tablet) 10 mg PO BIDAC [facility] Last Admin: 04/28/20 09:15 Dose: 10 mg Documented by: Sodium Chloride () 250 mls @ 15 mls/hr IV .[id number] PRN PRN Reason: Saline Flush Last Infusion: 04/23/20 11:07 Dose: 0 mls/hr Documented by: Sodium Chloride () 250 mls @ 15 mls/hr IV .[id number] PRN PRN Reason: Additional IVPB Infusion Ceftriaxone Sodium (Rocephin) 1 gm in 50 mls @ 100 mls/hr IV Q24 [facility] Last Infusion: 04/28/20 10:28 Dose: Infused Documented by: Insulin Glargine (Insulin Glargine 100 Units/Ml Pen) 30 units SC DINNER [facility] Last Admin: 04/27/20 16:39 Dose: 30 u Documented by: Insulin Human Lispro (Insulin Lispro 100 Unit/Ml Insuln.Pen) 0 unit SC ACHS [facility]; Protocol Last Admin: 04/28/20 06:31 Dose: Not Given Documented by: Nitroglycerin (Nitroglycerin (Inpatient Use) 0.4 Mg Tab.Subl) 0.4 mg SUBLINGUAL Q5M PRN PRN Reason: CARDIAC/CHEST PAIN Ondansetron HCl (Ondansetron 4 Mg/2 Ml Vial) 4 mg IV Q6H PRN PRN PRN Reason: NAUSEA/VOMITING Last Admin: 04/22/20 08:45 Dose: 4 mg Documented by: Sodium Chloride (0.9% Saline Lock 10 Ml Syringe) 10 - 40 ml IV UD PRN PRN Reason: SALINE FLUSH Last Admin: 04/27/20 22:17 Dose: 10 ml Documented by: Medical Necessity - Tobacco Use Smoking Status: Never smoker Tobacco Use: Non-smoker Assessment/Plan All Active Problems (Last Reviewed 05/04/18 @ 09:[address] Laron Bacon MD) Swelling of both lower extremities (Acute) Hyperkalemia (Acute) Dyspnea (Acute) KITTY likely CRS CKD 3 Hypervolemia HFpEF HTN Leukocytosis Hydronephrosis reviewed records from PCP office baseline creatinine as of Jun this year is around 2.0 presented with severe renal failure and anasarca. started dialysis in house CT imaging noted. left sided hydronephrosis which is being treated conservatively for now UF today placement at dialysis unit WBC is high with findings of pyelo on CT. tunneled line postponed till tomorrow
--- NOTE | 2020-04-28 12:19 | PN.SURG_ITS ---
Patient Problems: Active and Suspected Problems (Last Reviewed 05/04/18 @ 09:[address] Laron Bacon MD) Swelling of both lower extremities (Acute) Hyperkalemia (Acute) Dyspnea (Acute) Subjective: White blood cell count improving still 16 - Physical Exam Vitals/I&O's: Vital Signs Temp Pulse Resp BP Pulse Ox 97.5 F L 76 16 127/47 H 97 04/28/20 08:56 04/28/20 08:56 04/28/20 08:56 04/28/20 08:56 04/28/20 08:56 Oxygen Flow Rate (L/min) 1 Oxygen Delivery Method Room Air Weight: 236 lb 15.951 oz Body Mass Index (BMI) 36.4 Orthostatic Vital Signs Start: 04/22/20 09:19 Freq: q24h Status: Active Protocol: Activity Type Activity Date Activity User E-Sign Co-Sign Detail Recorded Client Recorded Date Recorded By Document 04/26/20 06:47 MARQUISE [id number] 04/26/20 06:48 KK 04/26/20 06:47 Orthostatic Vitals Standing -Blood Pressure (90/60-120/80) 116/61 -Extremity Use Right Arm -Pulse Rate (60-100) 78 Sitting -Blood Pressure (90/60-120/80) 109/53 L -Extremity Use Right Arm -Pulse Rate (60-100) 68 Lying -Blood Pressure (90/60-120/80) 111/45 L -Extremity Use Right Arm -Pulse Rate (60-100) 77 Intake and Output for Last 24 Hours 04/26/20 04/27/20 04/28/20 23:59 23:59 23:59 Intake Total 1120 / 1120 540 / 760 270 / 270 Output Total 3975 / 3975 350 / 450 150 / 150 Balance -2855 / -2855 190 / 310 120 / 120 General: Alert, Oriented x3, Cooperative HEENT: Atraumatic Neck: - - Right IJ temporary catheter in place Lungs: Normal air movement Cardiovascular: Regular rate Abdomen: Soft, Non Tender, Non-Distended Microbiology Past 72 Hours 04/23/20 08:55 Blood Culture (Wb) - Left Forearm Blood Culture - Final No growth in 5 days. 04/23/20 09:00 Blood Culture (Wb) - Left Hand Blood Culture - Final No growth in 5 days. Laboratory Results 04/27/20 11:42: POC Glucose 233 H 04/27/20 16:36: POC Glucose 231 H 04/27/20 22:14: POC Glucose 201 H 04/28/20 06:24: POC Glucose 134 H 04/28/20 06:35: WBC 16.8 H, RBC 4.03 L, Hgb 11.2 L, Hct 36.0 L, MCV 89.3, MCH 27.8, MCHC 31.1 L, RDW Std Deviation 47.1 H, RDW Coeff of Frances 14.3, Plt Count 305, MPV 11.3, Immature Gran % (Auto) 4.600 H, Neut % (Auto) 78.4 H, Lymph % (Auto) 7.6 L, [place] % (Auto) 7.4, Eos % (Auto) 1.5, Baso % (Auto) 0.5, Absolute Neuts (auto) 13.2 H, Absolute Lymphs (auto) 1.27, Nucleated RBC % 0 04/28/20 06:35: Sodium 133 L, Potassium 4.6, Chloride 100, Carbon Dioxide 26.0, Anion Gap 7, BUN 39 H, Creatinine 3.89 H, Estim Creat Clear Calc 15.12, Est GFR (MDRD) Af Amer 19 L, Est GFR (MDRD) Non-Af 16 L, BUN/Creatinine Ratio 10.0, Glucose 140 H, Calcium 8.2 L, Total Bilirubin 0.50, AST 23, ALT 48, Alkaline Phosphatase 115, Total Protein 6.6, Albumin 2.3 L, Globulin 4.3 H, Albumin/Globulin Ratio 0.5 L Current Medications Acetaminophen (Acetaminophen 325 Mg Tablet) 650 mg PO Q6H PRN PRN PRN Reason: Pain Score 1-10 Last Admin: 04/23/20 09:40 Dose: 650 mg Documented by: Amlodipine Besylate (Amlodipine 10 Mg Tablet) 10 mg PO DAILY [facility] Last Admin: 04/28/20 09:15 Dose: 10 mg Documented by: Aspirin (Aspirin E.C. 81 Mg Tablet) 81 mg PO DAILY [facility] Last Admin: 04/28/20 09:15 Dose: 81 mg Documented by: Cholecalciferol (Cholecalciferol (Vit D3) 1,000 Unit (25mcg)) 5,000 unit PO DAILY [facility] Last Admin: 04/28/20 09:15 Dose: 5,000 unit Documented by: Enoxaparin Sodium (Enoxaparin 30 Mg/0.3 Ml Syringe) 30 mg SC DAILY [facility] Last Admin: 04/28/20 09:15 Dose: 30 mg Documented by: Glipizide (Glipizide 10 Mg Tablet) 10 mg PO BIDAC [facility] Last Admin: 04/28/20 09:15 Dose: 10 mg Documented by: Sodium Chloride () 250 mls @ 15 mls/hr IV .[id number] PRN PRN Reason: Saline Flush Last Infusion: 04/23/20 11:07 Dose: 0 mls/hr Documented by: Sodium Chloride () 250 mls @ 15 mls/hr IV .[id number] PRN PRN Reason: Additional IVPB Infusion Ceftriaxone Sodium (Rocephin) 1 gm in 50 mls @ 100 mls/hr IV Q24 [facility] Last Infusion: 04/28/20 10:28 Dose: Infused Documented by: Insulin Glargine (Insulin Glargine 100 Units/Ml Pen) 30 units SC DINNER [facility] Last Admin: 04/27/20 16:39 Dose: 30 u Documented by: Insulin Human Lispro (Insulin Lispro 100 Unit/Ml Insuln.Pen) 0 unit SC ACHS [facility]; Protocol Last Admin: 04/28/20 06:31 Dose: Not Given Documented by: Nitroglycerin (Nitroglycerin (Inpatient Use) 0.4 Mg Tab.Subl) 0.4 mg SUBLINGUAL Q5M PRN PRN Reason: CARDIAC/CHEST PAIN Ondansetron HCl (Ondansetron 4 Mg/2 Ml Vial) 4 mg IV Q6H PRN PRN PRN Reason: NAUSEA/VOMITING Last Admin: 04/22/20 08:45 Dose: 4 mg Documented by: Sodium Chloride (0.9% Saline Lock 10 Ml Syringe) 10 - 40 ml IV UD PRN PRN Reason: SALINE FLUSH Last Admin: 04/27/20 22:17 Dose: 10 ml Documented by: Medical Necessity - Tobacco Use Smoking Status: Never smoker Tobacco Use: Non-smoker Assessment/Plan All Active Problems (Last Reviewed 05/04/18 @ 09:[address] Laron Bacon MD) Swelling of both lower extremities (Acute) Hyperkalemia (Acute) Dyspnea (Acute) 84-year-old male with acute on chronic kidney disease request for dialysis catheter, leukocytosis, UTI, possible pyelonephritis Tentatively on the schedule for Tuesday about 1230 for a tunneled dialysis catheter if the white blood cell count continues to improve we will check the white blood cell count tomorrow to see if we will proceed on Tuesday or possibly even . Tootie Franklin M.D. Pager: [phone] [facility] [address] [place] [address], [facility], [address] [place] [address] Office: [phone] Inpatient E&M: 56151 Subs Hosp L1
--- NOTE | 2020-04-28 12:21 | NURSING ---
pt refused to allow this RN to check his blood sugar because he has already started eating his lunch
--- NOTE | 2020-04-28 13:27 | PN_ITS ---
Patient Problems: Active and Suspected Problems (Last Reviewed 05/04/18 @ 09:[address] Laron Bacon MD) Swelling of both lower extremities (Acute) Hyperkalemia (Acute) Dyspnea (Acute) Subjective: Doing well, no issues overnight. Continue be treated for his UTI and possible pyelonephritis. Plan for tunneled dialysis catheter on Tuesday blood cultures are negative. Vitals/I&O's: Vital Signs Temp Pulse Resp BP Pulse Ox 97.5 F L 76 16 127/47 H 97 04/28/20 08:56 04/28/20 08:56 04/28/20 08:56 04/28/20 08:56 04/28/20 08:56 Oxygen Flow Rate (L/min) 1 Oxygen Delivery Method Room Air Weight: 236 lb 15.951 oz Body Mass Index (BMI) 36.4 Orthostatic Vital Signs Start: 04/22/20 09:19 Freq: q24h Status: Active Protocol: Activity Type Activity Date Activity User E-Sign Co-Sign Detail Recorded Client Recorded Date Recorded By Document 04/26/20 06:47 MARQUISE [id number] 04/26/20 06:48 KK 04/26/20 06:47 Orthostatic Vitals Standing -Blood Pressure (90/60-120/80) 116/61 -Extremity Use Right Arm -Pulse Rate (60-100) 78 Sitting -Blood Pressure (90/60-120/80) 109/53 L -Extremity Use Right Arm -Pulse Rate (60-100) 68 Lying -Blood Pressure (90/60-120/80) 111/45 L -Extremity Use Right Arm -Pulse Rate (60-100) 77 Intake and Output for Last 24 Hours 04/26/20 04/27/20 04/28/20 23:59 23:59 23:59 Intake Total 1120 / 1120 540 / 760 270 / 270 Output Total 3975 / 3975 350 / 450 150 / 150 Balance -2855 / -2855 190 / 310 120 / 120 General: Alert, Oriented x3, Cooperative, No apparent distress HEENT: Atraumatic, PERRLA, EOMI, Normocephalic Oral: Moist Mucosa Neck: Supple, No JVD Lungs: Clear to auscultation, Normal air movement, No rhonchi, No wheeze, No rales, Diminished Cardiovascular: Regular rate, Regular Rhythm, Normal S1, Normal S2, No murmurs Abdomen: Soft, Non Tender, Non-Distended, No Hepato-splenomegaly Extremities: Capillary Refill Less than 3 Seconds, Edema - 3+ pitting bilateral Skin: No breakdown Neurological: Neuro grossly intact, Sensory exam intact to light touch and pain Psych/Mental Status: Normal Affect, Appropriate Microbiology Past 72 Hours 04/23/20 08:55 Blood Culture (Wb) - Left Forearm Blood Culture - Final No growth in 5 days. 04/23/20 09:00 Blood Culture (Wb) - Left Hand Blood Culture - Final No growth in 5 days. Laboratory Results 04/27/20 11:42: POC Glucose 233 H 04/27/20 16:36: POC Glucose 231 H 04/27/20 22:14: POC Glucose 201 H 04/28/20 06:24: POC Glucose 134 H 04/28/20 06:35: WBC 16.8 H, RBC 4.03 L, Hgb 11.2 L, Hct 36.0 L, MCV 89.3, MCH 27.8, MCHC 31.1 L, RDW Std Deviation 47.1 H, RDW Coeff of Frances 14.3, Plt Count 305, MPV 11.3, Immature Gran % (Auto) 4.600 H, Neut % (Auto) 78.4 H, Lymph % (Auto) 7.6 L, [place] % (Auto) 7.4, Eos % (Auto) 1.5, Baso % (Auto) 0.5, Absolute Neuts (auto) 13.2 H, Absolute Lymphs (auto) 1.27, Nucleated RBC % 0 04/28/20 06:35: Sodium 133 L, Potassium 4.6, Chloride 100, Carbon Dioxide 26.0, Anion Gap 7, BUN 39 H, Creatinine 3.89 H, Estim Creat Clear Calc 15.12, Est GFR (MDRD) Af Amer 19 L, Est GFR (MDRD) Non-Af 16 L, BUN/Creatinine Ratio 10.0, Glucose 140 H, Calcium 8.2 L, Total Bilirubin 0.50, AST 23, ALT 48, Alkaline Phosphatase 115, Total Protein 6.6, Albumin 2.3 L, Globulin 4.3 H, Albumin/Globulin Ratio 0.5 L Current Medications Acetaminophen (Acetaminophen 325 Mg Tablet) 650 mg PO Q6H PRN PRN PRN Reason: Pain Score 1-10 Last Admin: 04/23/20 09:40 Dose: 650 mg Documented by: Amlodipine Besylate (Amlodipine 10 Mg Tablet) 10 mg PO DAILY [facility] Last Admin: 04/28/20 09:15 Dose: 10 mg Documented by: Aspirin (Aspirin E.C. 81 Mg Tablet) 81 mg PO DAILY [facility] Last Admin: 04/28/20 09:15 Dose: 81 mg Documented by: Cholecalciferol (Cholecalciferol (Vit D3) 1,000 Unit (25mcg)) 5,000 unit PO DAILY [facility] Last Admin: 04/28/20 09:15 Dose: 5,000 unit Documented by: Enoxaparin Sodium (Enoxaparin 30 Mg/0.3 Ml Syringe) 30 mg SC DAILY [facility] Last Admin: 04/28/20 09:15 Dose: 30 mg Documented by: Glipizide (Glipizide 10 Mg Tablet) 10 mg PO BIDAC [facility] Last Admin: 04/28/20 09:15 Dose: 10 mg Documented by: Sodium Chloride () 250 mls @ 15 mls/hr IV .[id number] PRN PRN Reason: Saline Flush Last Infusion: 04/23/20 11:07 Dose: 0 mls/hr Documented by: Sodium Chloride () 250 mls @ 15 mls/hr IV .[id number] PRN PRN Reason: Additional IVPB Infusion Ceftriaxone Sodium (Rocephin) 1 gm in 50 mls @ 100 mls/hr IV Q24 [facility] Last Infusion: 04/28/20 10:28 Dose: Infused Documented by: Insulin Glargine (Insulin Glargine 100 Units/Ml Pen) 30 units SC DINNER [facility] Last Admin: 04/27/20 16:39 Dose: 30 u Documented by: Insulin Human Lispro (Insulin Lispro 100 Unit/Ml Insuln.Pen) 0 unit SC ACHS [facility]; Protocol Last Admin: 04/28/20 12:27 Dose: Not Given Documented by: Nitroglycerin (Nitroglycerin (Inpatient Use) 0.4 Mg Tab.Subl) 0.4 mg SUBLINGUAL Q5M PRN PRN Reason: CARDIAC/CHEST PAIN Ondansetron HCl (Ondansetron 4 Mg/2 Ml Vial) 4 mg IV Q6H PRN PRN PRN Reason: NAUSEA/VOMITING Last Admin: 04/22/20 08:45 Dose: 4 mg Documented by: Sodium Chloride (0.9% Saline Lock 10 Ml Syringe) 10 - 40 ml IV UD PRN PRN Reason: SALINE FLUSH Last Admin: 04/27/20 22:17 Dose: 10 ml Documented by: Medical Necessity - Tobacco Use Smoking Status: Never smoker Tobacco Use: Non-smoker Assessment/Plan All Active Problems (Last Reviewed 05/04/18 @ 09:[address] Laron Bacon MD) Swelling of both lower extremities (Acute) Hyperkalemia (Acute) Dyspnea (Acute) 1. Acute diastolic CHF/bradycardia/HTN -Echo with an EF of 53% and stage II diastolic dysfunction with no wall motion abnormalities -Opponents were negative x3 -Appreciate cardiology input, continue with 1500 cc fluid restriction -Continue with dialysis -Hold beta-nicole, will continue with Norvasc -Hold lisinopril secondary to KITTY 2. KITTY on CKD 3 -Appreciate nephrology assistance -We will place tunneled catheter on Tuesday 3. Right pyelonephritis -WBC improving -ID and urology following -Day 9 of Rocephin 4. DM 2 -Blood sugars are stable continue with insulin -Accu-Cheks AC at bedtime DVT: Lovenox Inpatient E&M: [id number] Subs Hosp L2
--- NOTE | 2020-04-28 13:47 | CASEMGMT ---
RN PROSPER NOTE: Call placed to [facility] and spoke w/Santos. She was made aware pt will not be discharged today. New tentative start date for OP dialysis Thurs: 05/01. Layla GARRISON RN CM
[2020-04-28 14:12] LABS: Pathologist Review Reviewed
[2020-04-28 14:18] LABS: Pathologist Review Reviewed
[2020-04-28] MEDS: Insulin Lispro 100 UNIT/ML INSULN.PEN SC ×2 (16:32→22:57)
[2020-04-28 16:40] LABS: Bedside Glucose 310 mg/dL (70-110)
--- NOTE | 2020-04-28 16:55 | PCM.PN.ID ---
Patient Problems: Active and Suspected Problems (Last Reviewed 05/04/18 @ 09:[address] Laron Bacon MD) Swelling of both lower extremities (Acute) Hyperkalemia (Acute) Dyspnea (Acute) Subjective: Feeling better, no fever, no abd pain - Physical Exam Vitals/I&O's: Vital Signs Temp Pulse Resp BP Pulse Ox 98.0 F 65 14 113/34 L 97 04/28/20 14:12 04/28/20 14:12 04/28/20 14:12 04/28/20 14:12 04/28/20 14:12 Oxygen Flow Rate (L/min) 1 Oxygen Delivery Method Room Air Weight: 107.5 kg Body Mass Index (BMI) 36.4 Orthostatic Vital Signs Start: 04/22/20 09:19 Freq: q24h Status: Active Protocol: Activity Type Activity Date Activity User E-Sign Co-Sign Detail Recorded Client Recorded Date Recorded By Document 04/26/20 06:47 MARQUISE [id number] 04/26/20 06:48 MARQUISE 04/26/20 06:47 Orthostatic Vitals Standing -Blood Pressure (90/60-120/80) 116/61 -Extremity Use Right Arm -Pulse Rate (60-100) 78 Sitting -Blood Pressure (90/60-120/80) 109/53 L -Extremity Use Right Arm -Pulse Rate (60-100) 68 Lying -Blood Pressure (90/60-120/80) 111/45 L -Extremity Use Right Arm -Pulse Rate (60-100) 77 Intake and Output for Last 24 Hours 04/26/20 04/27/20 04/28/20 23:59 23:59 23:59 Intake Total 1120 / 1120 540 / 760 270 / 270 Output Total 3975 / 3975 350 / 450 150 / 150 Balance -2855 / -2855 190 / 310 120 / 120 General: Alert, Cooperative, No apparent distress Lungs: Clear to auscultation, Normal air movement Cardiovascular: Regular rate, Regular Rhythm Abdomen: Soft, Non Tender, Non-Distended Extremities: Edema Skin: No rashes Microbiology Past 72 Hours 04/23/20 08:55 Blood Culture (Wb) - Left Forearm Blood Culture - Final No growth in 5 days. 04/23/20 09:00 Blood Culture (Wb) - Left Hand Blood Culture - Final No growth in 5 days. Laboratory Results 04/26/20 05:35: Diff Path Review Reviewed 04/27/20 05:07: Diff Path Review Reviewed 04/27/20 22:14: POC Glucose 201 H 04/28/20 06:24: POC Glucose 134 H 04/28/20 06:35: WBC 16.8 H, RBC 4.03 L, Hgb 11.2 L, Hct 36.0 L, MCV 89.3, MCH 27.8, MCHC 31.1 L, RDW Std Deviation 47.1 H, RDW Coeff of Frances 14.3, Plt Count 305, MPV 11.3, Immature Gran % (Auto) 4.600 H, Neut % (Auto) 78.4 H, Lymph % (Auto) 7.6 L, [place] % (Auto) 7.4, Eos % (Auto) 1.5, Baso % (Auto) 0.5, Absolute Neuts (auto) 13.2 H, Absolute Lymphs (auto) 1.27, Nucleated RBC % 0 04/28/20 06:35: Sodium 133 L, Potassium 4.6, Chloride 100, Carbon Dioxide 26.0, Anion Gap 7, BUN 39 H, Creatinine 3.89 H, Estim Creat Clear Calc 15.12, Est GFR (MDRD) Af Amer 19 L, Est GFR (MDRD) Non-Af 16 L, BUN/Creatinine Ratio 10.0, Glucose 140 H, Calcium 8.2 L, Total Bilirubin 0.50, AST 23, ALT 48, Alkaline Phosphatase 115, Total Protein 6.6, Albumin 2.3 L, Globulin 4.3 H, Albumin/Globulin Ratio 0.5 L 04/28/20 16:31: POC Glucose 310 H Current Medications Acetaminophen (Acetaminophen 325 Mg Tablet) 650 mg PO Q6H PRN PRN PRN Reason: Pain Score 1-10 Last Admin: 04/23/20 09:40 Dose: 650 mg Documented by: Amlodipine Besylate (Amlodipine 10 Mg Tablet) 10 mg PO DAILY [facility] Last Admin: 04/28/20 09:15 Dose: 10 mg Documented by: Aspirin (Aspirin E.C. 81 Mg Tablet) 81 mg PO DAILY [facility] Last Admin: 04/28/20 09:15 Dose: 81 mg Documented by: Cholecalciferol (Cholecalciferol (Vit D3) 1,000 Unit (25mcg)) 5,000 unit PO DAILY [facility] Last Admin: 04/28/20 09:15 Dose: 5,000 unit Documented by: Enoxaparin Sodium (Enoxaparin 30 Mg/0.3 Ml Syringe) 30 mg SC DAILY [facility] Last Admin: 04/28/20 09:15 Dose: 30 mg Documented by: Glipizide (Glipizide 10 Mg Tablet) 10 mg PO BIDAC [facility] Last Admin: 04/28/20 16:33 Dose: 10 mg Documented by: Sodium Chloride () 250 mls @ 15 mls/hr IV .[id number] PRN PRN Reason: Saline Flush Last Infusion: 04/23/20 11:07 Dose: 0 mls/hr Documented by: Sodium Chloride () 250 mls @ 15 mls/hr IV .[id number] PRN PRN Reason: Additional IVPB Infusion Ceftriaxone Sodium (Rocephin) 1 gm in 50 mls @ 100 mls/hr IV Q24 [facility] Last Infusion: 04/28/20 10:28 Dose: Infused Documented by: Insulin Glargine (Insulin Glargine 100 Units/Ml Pen) 30 units SC DINNER [facility] Last Admin: 04/28/20 16:33 Dose: 30 u Documented by: Insulin Human Lispro (Insulin Lispro 100 Unit/Ml Insuln.Pen) 0 unit SC ACHS [facility]; Protocol Last Admin: 04/28/20 16:32 Dose: 5 units Documented by: Nitroglycerin (Nitroglycerin (Inpatient Use) 0.4 Mg Tab.Subl) 0.4 mg SUBLINGUAL Q5M PRN PRN Reason: CARDIAC/CHEST PAIN Ondansetron HCl (Ondansetron 4 Mg/2 Ml Vial) 4 mg IV Q6H PRN PRN PRN Reason: NAUSEA/VOMITING Last Admin: 04/22/20 08:45 Dose: 4 mg Documented by: Sodium Chloride (0.9% Saline Lock 10 Ml Syringe) 10 - 40 ml IV UD PRN PRN Reason: SALINE FLUSH Last Admin: 04/27/20 22:17 Dose: 10 ml Documented by: Medical Necessity - Tobacco Use Smoking Status: Never smoker Tobacco Use: Non-smoker Route of nutrition/ use of supplements: [] Nutritional Intake: [] IV Site: [] Lozano Catheter: [] - Assessment/Plan Antibiotics: [] Assessment/Plan: [] Active and Suspected Problems (Last Reviewed 05/04/18 @ 09:[address] Laron Bacon MD) Swelling of both lower extremities (Acute) Hyperkalemia (Acute) Dyspnea (Acute) KITTY, BLE edema - now on HD. Had false (+) covid Ag on admit, pcr neg. Now with rising wbc, otherwise asymptomatic. Has been on ceftriaxone since admit 04/20, ucx with ecoli. CT with hydronephrosis, wbc improving, no plan for urologic procedure at this point per Dr. Carroll. Feeling better. Will follow
[2020-04-28 23:35] LABS: Bedside Glucose 240 mg/dL (70-110)
[2020-04-29] VITALS (14 sets, daily range): BP systolic 116–151; BP diastolic 41–67; PULSE 43–68; RESP 16–28; TEMP 36.7–37.6; O2SAT 92–97
[2020-04-29] MEDS: Insulin Lispro 100 UNIT/ML INSULN.PEN SC ×2 (06:57→22:51)
[2020-04-29 07:22] LABS: Absolute Lymphocyte Count 0.84 X10^3/uL (0.83-4.51); Absolute Neutrophil Count 14.3 X10^3/uL (2.0-7.7); Basophil# 0.09 X10^3/uL; Basophil% 0.5 % (0-1); Eosinophils% 1.7 % (0-5); Hematocrit 35.7 % (40-54); Lymphocyte # 0.84 X10^3/ul (4.0); Lymphocyte % 4.9 % (19-41); Mean Corp Hgb Conc 30.8 g/dL (32-36); Mean Corpuscular Hgb 27.6 pg (27.0-32.0); Mean Corpuscular Volume 89.5 fL (80-94); Mean Platelet Vol. 11.8 fl (6.2-12.0); Monocyte# 1.05 X10^3/uL; Monocyte% 6.1 % (0-10); NRBC Flagged by Analyzer 0 % (0-5); Neutrophil # 14.33 X10^3/uL (2.7-7.7); Platelet Count 351 K/mm3 (150-450); RBC Distribution Width CV 14.3 % (11.6-14.6); RBC Distribution Width SD 47.3 fl (35.1-43.9); Red Blood Count 3.99 M/mm3 (4.6-6.2); White Blood Count 17.3 K/mm3 (4.4-11.0)
--- NOTE | 2020-04-29 07:32 | CASEMGMT ---
ISABEL CM NOTE: Javan from [facility] made aware pt is not discharging today/anticipate may be ready for discharge tomorrow 04/30. Layla ROBLESN ISABEL CM
[2020-04-29 07:48] LABS: Anion Gap 9 (5-15); BUN 53 mg/dL (7-18); BUN/Creat Ratio 12.4 RATIO (10-20); Calcium,Total 8.3 mg/dL (8.5-10.1); Chloride 99 mmol/L (98-107); Creatinine, Serum 4.29 mg/dL (0.70-1.30); EST Glomerular Filtration Rate 14 mL/min (>60); Est Glom Filt Rate - Afr Amer 17 mL/min (>60); Estimated Creatinine Clearance 13.71 ml/min; Glucose 154 mg/dL (74-106); Potassium 4.6 mmol/L (3.5-5.1); Sodium Level 133 mmol/L (136-145)
[2020-04-29 08:40] LABS: Bedside Glucose 159 mg/dL (70-110)
--- NOTE | 2020-04-29 09:35 | PN_ITS ---
Progress Note WBC back up to 17 from 16-- will hold off on dialysis catheter tomorrow. Would like the white blood cell count to be 12 or less prior to placing tunneled dialysis catheter. Tootie Franklin M.D. Pager: [phone] [facility] [address] [place] [address], [facility], [address] [place] [address] Office: [phone] STROKE Vital Signs/Narrative: Vital Signs Temp Pulse Resp BP Pulse Ox 04/29/20 08:19 97 04/29/20 08:05 98.8 F 61 18 151/67 H 97 04/29/20 07:04 94 04/29/20 07:00 59 L
--- NOTE | 2020-04-29 09:35 | PCM.PN.BLA ---
Progress Note WBC back up to 17 from 16-- will hold off on dialysis catheter tomorrow. Would like the white blood cell count to be 12 or less prior to placing tunneled dialysis catheter. Tootie Franklin M.D. Pager: [phone] [facility] [address] [place] [address], [facility], [address] [place] [address] Office: [phone] STROKE Vital Signs/Narrative: Vital Signs Temp Pulse Resp BP Pulse Ox 04/29/20 08:19 97 04/29/20 08:05 98.8 F 61 18 151/67 H 97 04/29/20 07:04 94 04/29/20 07:00 59 L
--- NOTE | 2020-04-29 11:24 | PCM.PN.REN ---
Patient Problems: Active and Suspected Problems (Last Reviewed 05/04/18 @ 09:[address] Laron Bacon MD) Swelling of both lower extremities (Acute) Hyperkalemia (Acute) Dyspnea (Acute) Subjective: no new complaints - Physical Exam Vitals/I&O's: Vital Signs Temp Pulse Resp BP Pulse Ox 98.8 F 61 18 151/67 H 97 04/29/20 08:05 04/29/20 08:05 04/29/20 08:05 04/29/20 08:05 04/29/20 08:19 Oxygen Flow Rate (L/min) 1 Oxygen Delivery Method Room Air Weight: 107.5 kg Body Mass Index (BMI) 36.4 Orthostatic Vital Signs Start: 04/22/20 09:19 Freq: q24h Status: Active Protocol: Activity Type Activity Date Activity User E-Sign Co-Sign Detail Recorded Client Recorded Date Recorded By Document 04/26/20 06:47 KK [id number] 04/26/20 06:48 KK 04/26/20 06:47 Orthostatic Vitals Standing -Blood Pressure (90/60-120/80 mm Hg) 116/61 -Extremity Use Right Arm -Pulse Rate (60-100 beats/min) 78 Sitting -Blood Pressure (90/60-120/80 mm Hg) 109/53 L -Extremity Use Right Arm -Pulse Rate (60-100 beats/min) 68 Lying -Blood Pressure (90/60-120/80 mm Hg) 111/45 L -Extremity Use Right Arm -Pulse Rate (60-100 beats/min) 77 Intake and Output for Last 24 Hours 04/27/20 04/28/20 04/29/20 23:59 23:59 23:59 Intake Total 540 / 760 270 / 370 150 / 150 Output Total 350 / 450 150 / 150 Balance 190 / 310 120 / 220 150 / 150 General: Alert, Oriented x3, Cooperative HEENT: Atraumatic, PERRLA, EOMI, Normocephalic Neck: Supple, No JVD, Negative Carotid Bruits Lungs: Clear to auscultation, Normal air movement Cardiovascular: Regular rate, No murmurs Abdomen: Bowel Sounds Present, Soft, Non Tender Extremities: Capillary Refill Less than 3 Seconds, Edema Skin: No rashes, No breakdown Musculoskeletal: No Tenderness to Palpation of Joints or Extremities Neurological: Cranial nerves II-XII grossly intact Psych/Mental Status: Normal Affect, Appropriate Microbiology Past 72 Hours 04/23/20 08:55 Blood Culture (Wb) - Left Forearm Blood Culture - Final No growth in 5 days. 04/23/20 09:00 Blood Culture (Wb) - Left Hand Blood Culture - Final No growth in 5 days. Laboratory Results 04/26/20 05:35: Diff Path Review Reviewed 04/27/20 05:07: Diff Path Review Reviewed 04/28/20 16:31: POC Glucose 310 H 04/28/20 22:54: POC Glucose 240 H 04/29/20 05:30: WBC 17.3 H, RBC 3.99 L, Hgb 11.0 L, Hct 35.7 L, MCV 89.5, MCH 27.6, MCHC 30.8 L, RDW Std Deviation 47.3 H, RDW Coeff of Frances 14.3, Plt Count 351, MPV 11.8, Immature Gran % (Auto) 3.800 H, Neut % (Auto) 83.0 H, Lymph % (Auto) 4.9 L, [place] % (Auto) 6.1, Eos % (Auto) 1.7, Baso % (Auto) 0.5, Absolute Neuts (auto) 14.3 H, Absolute Lymphs (auto) 0.84, Nucleated RBC % 0 04/29/20 05:30: Sodium 133 L, Potassium 4.6, Chloride 99, Carbon Dioxide 25.0, Anion Gap 9, BUN 53 H, Creatinine 4.29 H, Estim Creat Clear Calc 13.71, Est GFR (MDRD) Af Amer 17 L, Est GFR (MDRD) Non-Af 14 L, BUN/Creatinine Ratio 12.4, Glucose 154 H, Calcium 8.3 L 04/29/20 06:54: POC Glucose 159 H Current Medications Acetaminophen (Acetaminophen 325 Mg Tablet) 650 mg PO Q6H PRN PRN PRN Reason: Pain Score 1-10 Last Admin: 04/23/20 09:40 Dose: 650 mg Documented by: Amlodipine Besylate (Amlodipine 10 Mg Tablet) 10 mg PO DAILY [facility] Last Admin: 04/28/20 09:15 Dose: 10 mg Documented by: Aspirin (Aspirin E.C. 81 Mg Tablet) 81 mg PO DAILY [facility] Last Admin: 04/28/20 09:15 Dose: 81 mg Documented by: Cholecalciferol (Cholecalciferol (Vit D3) 1,000 Unit (25mcg)) 5,000 unit PO DAILY [facility] Last Admin: 04/28/20 09:15 Dose: 5,000 unit Documented by: Enoxaparin Sodium (Enoxaparin 30 Mg/0.3 Ml Syringe) 30 mg SC DAILY [facility] Last Admin: 04/28/20 09:15 Dose: 30 mg Documented by: Glipizide (Glipizide 10 Mg Tablet) 10 mg PO BIDAC [facility] Last Admin: 04/28/20 16:33 Dose: 10 mg Documented by: Sodium Chloride () 250 mls @ 15 mls/hr IV .[id number] PRN PRN Reason: Saline Flush Last Infusion: 04/23/20 11:07 Dose: 0 mls/hr Documented by: Sodium Chloride () 250 mls @ 15 mls/hr IV .[id number] PRN PRN Reason: Additional IVPB Infusion Ceftriaxone Sodium (Rocephin) 1 gm in 50 mls @ 100 mls/hr IV Q24 [facility] Last Infusion: 04/28/20 10:28 Dose: Infused Documented by: Insulin Glargine (Insulin Glargine 100 Units/Ml Pen) 30 units SC DINNER [facility] Last Admin: 04/28/20 16:33 Dose: 30 u Documented by: Insulin Human Lispro (Insulin Lispro 100 Unit/Ml Insuln.Pen) 0 unit SC ACHS [facility]; Protocol Last Admin: 04/29/20 06:57 Dose: 1 units Documented by: Nitroglycerin (Nitroglycerin (Inpatient Use) 0.4 Mg Tab.Subl) 0.4 mg SUBLINGUAL Q5M PRN PRN Reason: CARDIAC/CHEST PAIN Ondansetron HCl (Ondansetron 4 Mg/2 Ml Vial) 4 mg IV Q6H PRN PRN PRN Reason: NAUSEA/VOMITING Last Admin: 04/22/20 08:45 Dose: 4 mg Documented by: Sodium Chloride (0.9% Saline Lock 10 Ml Syringe) 10 - 40 ml IV UD PRN PRN Reason: SALINE FLUSH Last Admin: 04/27/20 22:17 Dose: 10 ml Documented by: Medical Necessity - Tobacco Use Smoking Status: Never smoker Tobacco Use: Non-smoker Assessment/Plan All Active Problems (Last Reviewed 05/04/18 @ 09:[address] Laron Bacon MD) Swelling of both lower extremities (Acute) Hyperkalemia (Acute) Dyspnea (Acute) KITTY likely CRS CKD 3 Hypervolemia HFpEF HTN Leukocytosis Hydronephrosis reviewed records from PCP office baseline creatinine as of Jun this year is around 2.0 presented with severe renal failure and anasarca. started dialysis in house CT imaging noted. left sided hydronephrosis which is being treated conservatively for now placement at dialysis unit, has a confirmed TTS schedule first shift WBC is high with findings of pyelo on CT. tunneled line postponed for now seen on HD today. tolerating UF pretty well. HR is low
[2020-04-29 11:41] LABS: Bedside Glucose 136 mg/dL (70-110)
[2020-04-29] MEDS: Heparin 10,000 UNITS/10 ML Vial IV (12:20)
--- NOTE | 2020-04-29 12:49 | DIALYSIS ---
HD x 4 hours complete. Only able to remove 2800ml of fluid d/t bp dropping into 70's during tx. Bp stable post tx. Dr. Alva is aware. Used right IJ catheter. Catheter closed with heparin per fill volume. Caps placed. Dressing is dry and intact. See tx sheet for more details. Report was given to ISABEL Spencer
[2020-04-29] MEDS: amLODIPine 10 MG Tablet PO (12:51)
[2020-04-29] MEDS: Aspirin E.C. 81 MG Tablet PO (12:51)
[2020-04-29] MEDS: Enoxaparin 30 MG/0.3 ML Syringe SC (12:52)
[2020-04-29] MEDS: Ceftriaxone 1 GM/50 ML BAG IV (12:53)
--- NOTE | 2020-04-29 13:27 | PN_ITS ---
Patient Problems: Active and Suspected Problems (Last Reviewed 05/04/18 @ 09:[address] Laron Bacon MD) Swelling of both lower extremities (Acute) Hyperkalemia (Acute) Dyspnea (Acute) Subjective: Feels stable and about the same as yesterday. Vitals/I&O's: Vital Signs Temp Pulse Resp BP Pulse Ox 98.0 F 61 28 H 125/63 H 97 04/29/20 12:48 04/29/20 12:48 04/29/20 12:48 04/29/20 12:48 04/29/20 08:19 Oxygen Flow Rate (L/min) 1 Oxygen Delivery Method Room Air Weight: 236 lb 15.951 oz Body Mass Index (BMI) 36.4 Orthostatic Vital Signs Start: 04/22/20 09:19 Freq: q24h Status: Active Protocol: Activity Type Activity Date Activity User E-Sign Co-Sign Detail Recorded Client Recorded Date Recorded By Document 04/26/20 06:47 MARQUISE [id number] 04/26/20 06:48 MARQUISE 04/26/20 06:47 Orthostatic Vitals Standing -Blood Pressure (90/60-120/80) 116/61 -Extremity Use Right Arm -Pulse Rate (60-100) 78 Sitting -Blood Pressure (90/60-120/80) 109/53 L -Extremity Use Right Arm -Pulse Rate (60-100) 68 Lying -Blood Pressure (90/60-120/80) 111/45 L -Extremity Use Right Arm -Pulse Rate (60-100) 77 Intake and Output for Last 24 Hours 04/27/20 04/28/20 04/29/20 23:59 23:59 23:59 Intake Total 540 / 760 270 / 370 270 / 270 Output Total 350 / 450 150 / 150 2800 / 2800 Balance 190 / 310 120 / 220 -2530 / -2530 General: Alert, Oriented x3, Cooperative, No apparent distress HEENT: Atraumatic, PERRLA, EOMI, Normocephalic Oral: Moist Mucosa Neck: Supple, No JVD Lungs: Clear to auscultation, Normal air movement, No rhonchi, No wheeze, No rales, Diminished Cardiovascular: Regular rate, Regular Rhythm, Normal S1, Normal S2, No murmurs Abdomen: Soft, Non Tender, Non-Distended, No Hepato-splenomegaly Extremities: Capillary Refill Less than 3 Seconds, Edema - 3+ pitting bilateral Skin: No breakdown Neurological: Neuro grossly intact, Sensory exam intact to light touch and pain Psych/Mental Status: Normal Affect, Appropriate Microbiology Past 72 Hours 04/23/20 08:55 Blood Culture (Wb) - Left Forearm Blood Culture - Final No growth in 5 days. 04/23/20 09:00 Blood Culture (Wb) - Left Hand Blood Culture - Final No growth in 5 days. Laboratory Results 04/26/20 05:35: Diff Path Review Reviewed 04/27/20 05:07: Diff Path Review Reviewed 04/28/20 16:31: POC Glucose 310 H 04/28/20 22:54: POC Glucose 240 H 04/29/20 05:30: WBC 17.3 H, RBC 3.99 L, Hgb 11.0 L, Hct 35.7 L, MCV 89.5, MCH 27.6, MCHC 30.8 L, RDW Std Deviation 47.3 H, RDW Coeff of Fracnes 14.3, Plt Count 351, MPV 11.8, Immature Gran % (Auto) 3.800 H, Neut % (Auto) 83.0 H, Lymph % (Auto) 4.9 L, [place] % (Auto) 6.1, Eos % (Auto) 1.7, Baso % (Auto) 0.5, Absolute Neuts (auto) 14.3 H, Absolute Lymphs (auto) 0.84, Nucleated RBC % 0 04/29/20 05:30: Sodium 133 L, Potassium 4.6, Chloride 99, Carbon Dioxide 25.0, Anion Gap 9, BUN 53 H, Creatinine 4.29 H, Estim Creat Clear Calc 13.71, Est GFR (MDRD) Af Amer 17 L, Est GFR (MDRD) Non-Af 14 L, BUN/Creatinine Ratio 12.4, Glucose 154 H, Calcium 8.3 L 04/29/20 06:54: POC Glucose 159 H 04/29/20 11:33: POC Glucose 136 H Current Medications Acetaminophen (Acetaminophen 325 Mg Tablet) 650 mg PO Q6H PRN PRN PRN Reason: Pain Score 1-10 Last Admin: 04/23/20 09:40 Dose: 650 mg Documented by: Amlodipine Besylate (Amlodipine 10 Mg Tablet) 10 mg PO DAILY [facility] Last Admin: 04/29/20 12:51 Dose: 10 mg Documented by: Aspirin (Aspirin E.C. 81 Mg Tablet) 81 mg PO DAILY [facility] Last Admin: 04/29/20 12:51 Dose: 81 mg Documented by: Cholecalciferol (Cholecalciferol (Vit D3) 1,000 Unit (25mcg)) 5,000 unit PO DAILY [facility] Last Admin: 04/29/20 12:51 Dose: 5,000 unit Documented by: Enoxaparin Sodium (Enoxaparin 30 Mg/0.3 Ml Syringe) 30 mg SC DAILY [facility] Last Admin: 04/29/20 12:52 Dose: 30 mg Documented by: Glipizide (Glipizide 10 Mg Tablet) 10 mg PO BIDAC [facility] Last Admin: 04/29/20 12:45 Dose: Not Given Documented by: Sodium Chloride () 250 mls @ 15 mls/hr IV .[id number] PRN PRN Reason: Saline Flush Last Infusion: 04/23/20 11:07 Dose: 0 mls/hr Documented by: Sodium Chloride () 250 mls @ 15 mls/hr IV .[id number] PRN PRN Reason: Additional IVPB Infusion Ceftriaxone Sodium (Rocephin) 1 gm in 50 mls @ 100 mls/hr IV Q24 [facility] Last Admin: 04/29/20 12:53 Dose: 100 mls/hr Documented by: Insulin Glargine (Insulin Glargine 100 Units/Ml Pen) 30 units SC DINNER [facility] Last Admin: 04/28/20 16:33 Dose: 30 u Documented by: Insulin Human Lispro (Insulin Lispro 100 Unit/Ml Insuln.Pen) 0 unit SC ACHS [facility]; Protocol Last Admin: 04/29/20 12:44 Dose: Not Given Documented by: Nitroglycerin (Nitroglycerin (Inpatient Use) 0.4 Mg Tab.Subl) 0.4 mg SUBLINGUAL Q5M PRN PRN Reason: CARDIAC/CHEST PAIN Ondansetron HCl (Ondansetron 4 Mg/2 Ml Vial) 4 mg IV Q6H PRN PRN PRN Reason: NAUSEA/VOMITING Last Admin: 04/22/20 08:45 Dose: 4 mg Documented by: Sodium Chloride (0.9% Saline Lock 10 Ml Syringe) 10 - 40 ml IV UD PRN PRN Reason: SALINE FLUSH Last Admin: 04/27/20 22:17 Dose: 10 ml Documented by: STROKE Vital Signs/Narrative: Vital Signs Temp Pulse Resp BP 04/29/20 12:48 98.0 F 61 28 H 125/63 H Medical Necessity - Tobacco Use Smoking Status: Never smoker Tobacco Use: Non-smoker Assessment/Plan All Active Problems (Last Reviewed 05/04/18 @ 09:[address] Laron Bacon MD) Swelling of both lower extremities (Acute) Hyperkalemia (Acute) Dyspnea (Acute) 1. Acute diastolic CHF/bradycardia/HTN -Echo with an EF of 53% and stage II diastolic dysfunction with no wall motion abnormalities -Troponins were negative x3 -Appreciate cardiology input, continue with 1500 cc fluid restriction -Continue with dialysis -Hold beta-nicole, will continue with Norvasc -Hold lisinopril secondary to KITTY 2. KITTY on CKD 3 -Appreciate nephrology assistance -Plan was to place a dialysis catheter on Tuesday however surgery does not feel comfortable doing so given elevated white count. His white count is likely reactive, and he remains afebrile 3. Right pyelonephritis -WBC improving -ID and urology following -Day 10 of Rocephin 4. DM 2 -Blood sugars are stable continue with insulin -Accu-Cheks AC at bedtime DVT: Lovenox Inpatient E&M: 50795 Subs Hosp L2
[2020-04-29 17:00] LABS: Bedside Glucose 211 mg/dL (70-110)
[2020-04-29 23:06] LABS: Bedside Glucose 240 mg/dL (70-110)
[2020-04-30] VITALS (10 sets, daily range): BP systolic 120–141; BP diastolic 49–67; PULSE 53–63; RESP 14–18; TEMP 36.9–37.1; O2SAT 92–98
[2020-04-30 06:37] LABS: Absolute Lymphocyte Count 1.05 X10^3/uL (0.83-4.51); Basophil# 0.07 X10^3/uL; Basophil% 0.6 % (0-1); Eosinophil# 0.21 X10^3/uL; Eosinophils% 1.7 % (0-5); Hematocrit 33.7 % (40-54); Hemoglobin 10.7 g/dL (13.0-16.5); Lymphocyte # 1.05 X10^3/ul (4.0); Lymphocyte % 8.3 % (19-41); Mean Corp Hgb Conc 31.8 g/dL (32-36); Mean Corpuscular Hgb 28.5 pg (27.0-32.0); Mean Corpuscular Volume 89.9 fL (80-94); Mean Platelet Vol. 11.6 fl (6.2-12.0); Monocyte# 1.14 X10^3/uL; NRBC Flagged by Analyzer 0 % (0-5); Neutrophil # 9.98 X10^3/uL (2.7-7.7); Neutrophil % 78.3 % (47-70); Platelet Count 349 K/mm3 (150-450); RBC Distribution Width CV 14.3 % (11.6-14.6); RBC Distribution Width SD 47.4 fl (35.1-43.9); Red Blood Count 3.75 M/mm3 (4.6-6.2); White Blood Count 12.7 K/mm3 (4.4-11.0)
[2020-04-30] MEDS: Insulin Lispro 100 UNIT/ML INSULN.PEN SC ×4 (06:52→22:56)
[2020-04-30 07:05] LABS: Anion Gap 6 (5-15); BUN 31 mg/dL (7-18); BUN/Creat Ratio 9.1 RATIO (10-20); Calcium,Total 7.9 mg/dL (8.5-10.1); Chloride 99 mmol/L (98-107); Creatinine, Serum 3.42 mg/dL (0.70-1.30); EST Glomerular Filtration Rate 18 mL/min (>60); Est Glom Filt Rate - Afr Amer 22 mL/min (>60); Glucose 156 mg/dL (74-106); Potassium 4.3 mmol/L (3.5-5.1); Sodium Level 135 mmol/L (136-145)
[2020-04-30 07:16] LABS: Bedside Glucose 169 mg/dL (70-110)
--- NOTE | 2020-04-30 07:51 | PCM.PN.SRG ---
Patient Problems: Active and Suspected Problems (Last Reviewed 05/04/18 @ 09:[address] Laron Bacon MD) Swelling of both lower extremities (Acute) Hyperkalemia (Acute) Dyspnea (Acute) Subjective: Patient has no complaints - Physical Exam Vitals/I&O's: Vital Signs Temp Pulse Resp BP Pulse Ox 98.8 F 54 L 16 134/49 H 95 04/30/20 05:55 04/30/20 05:55 04/30/20 05:55 04/30/20 05:55 04/30/20 05:55 Oxygen Flow Rate (L/min) 1 Oxygen Delivery Method Room Air Weight: 236 lb 15.951 oz Body Mass Index (BMI) 36.4 Orthostatic Vital Signs Start: 04/22/20 09:19 Freq: q24h Status: Active Protocol: Activity Type Activity Date Activity User E-Sign Co-Sign Detail Recorded Client Recorded Date Recorded By Document 04/26/20 06:47 MARQUISE [id number] 04/26/20 06:48 MARQUISE 04/26/20 06:47 Orthostatic Vitals Standing -Blood Pressure (90/60-120/80) 116/61 -Extremity Use Right Arm -Pulse Rate (60-100) 78 Sitting -Blood Pressure (90/60-120/80) 109/53 L -Extremity Use Right Arm -Pulse Rate (60-100) 68 Lying -Blood Pressure (90/60-120/80) 111/45 L -Extremity Use Right Arm -Pulse Rate (60-100) 77 Intake and Output for Last 24 Hours 04/28/20 04/29/20 04/30/20 23:59 23:59 23:59 Intake Total 270 / 370 320 / 420 100 / 100 Output Total 150 / 150 2800 / 2800 0 / 0 Balance 120 / 220 -2480 / -2380 100 / 100 General: Alert, Oriented x3, Cooperative, No apparent distress HEENT: - - Right IJ dialysis catheter in place Lungs: Normal air movement Cardiovascular: Regular rate Abdomen: Soft, Non Tender, Non-Distended Extremities: Edema Microbiology Past 72 Hours 04/23/20 08:55 Blood Culture (Wb) - Left Forearm Blood Culture - Final No growth in 5 days. 04/23/20 09:00 Blood Culture (Wb) - Left Hand Blood Culture - Final No growth in 5 days. Laboratory Results 04/29/20 06:54: POC Glucose 159 H 04/29/20 11:33: POC Glucose 136 H 04/29/20 16:33: POC Glucose 211 H 04/29/20 22:43: POC Glucose 240 H 04/30/20 05:04: WBC 12.7 H, RBC 3.75 L, Hgb 10.7 L, Hct 33.7 L, MCV 89.9, MCH 28.5, MCHC 31.8 L, RDW Std Deviation 47.4 H, RDW Coeff of Frances 14.3, Plt Count 349, MPV 11.6, Immature Gran % (Auto) 2.100 H, Neut % (Auto) 78.3 H, Lymph % (Auto) 8.3 L, [place] % (Auto) 9.0, Eos % (Auto) 1.7, Baso % (Auto) 0.6, Absolute Neuts (auto) 10.0 H, Absolute Lymphs (auto) 1.05, Nucleated RBC % 0 04/30/20 05:04: Sodium 135 L, Potassium 4.3, Chloride 99, Carbon Dioxide 30.0, Anion Gap 6, BUN 31 H, Creatinine 3.42 H, Estim Creat Clear Calc 16.90, Est GFR (MDRD) Af Amer 22 L, Est GFR (MDRD) Non-Af 18 L, BUN/Creatinine Ratio 9.1 L, Glucose 156 H, Calcium 7.9 L 04/30/20 06:50: POC Glucose 169 H Current Medications Acetaminophen (Acetaminophen 325 Mg Tablet) 650 mg PO Q6H PRN PRN PRN Reason: Pain Score 1-10 Last Admin: 04/23/20 09:40 Dose: 650 mg Documented by: Amlodipine Besylate (Amlodipine 10 Mg Tablet) 10 mg PO DAILY [facility] Last Admin: 04/29/20 12:51 Dose: 10 mg Documented by: Aspirin (Aspirin E.C. 81 Mg Tablet) 81 mg PO DAILY [facility] Last Admin: 04/29/20 12:51 Dose: 81 mg Documented by: Cholecalciferol (Cholecalciferol (Vit D3) 1,000 Unit (25mcg)) 5,000 unit PO DAILY [facility] Last Admin: 04/29/20 12:51 Dose: 5,000 unit Documented by: Enoxaparin Sodium (Enoxaparin 30 Mg/0.3 Ml Syringe) 30 mg SC DAILY [facility] Last Admin: 04/29/20 12:52 Dose: 30 mg Documented by: Glipizide (Glipizide 10 Mg Tablet) 10 mg PO BIDAC [facility] Last Admin: 04/29/20 17:16 Dose: Not Given Documented by: Sodium Chloride () 250 mls @ 15 mls/hr IV .[id number] PRN PRN Reason: Saline Flush Last Infusion: 04/23/20 11:07 Dose: 0 mls/hr Documented by: Sodium Chloride () 250 mls @ 15 mls/hr IV .[id number] PRN PRN Reason: Additional IVPB Infusion Ceftriaxone Sodium (Rocephin) 1 gm in 50 mls @ 100 mls/hr IV Q24 [facility] Last Infusion: 04/29/20 13:25 Dose: Infused Documented by: Insulin Glargine (Insulin Glargine 100 Units/Ml Pen) 30 units SC DINNER [facility] Last Admin: 04/29/20 17:17 Dose: Not Given Documented by: Insulin Human Lispro (Insulin Lispro 100 Unit/Ml Insuln.Pen) 0 unit SC ACHS [facility]; Protocol Last Admin: 04/30/20 06:52 Dose: 1 units Documented by: Nitroglycerin (Nitroglycerin (Inpatient Use) 0.4 Mg Tab.Subl) 0.4 mg SUBLINGUAL Q5M PRN PRN Reason: CARDIAC/CHEST PAIN Ondansetron HCl (Ondansetron 4 Mg/2 Ml Vial) 4 mg IV Q6H PRN PRN PRN Reason: NAUSEA/VOMITING Last Admin: 04/22/20 08:45 Dose: 4 mg Documented by: Sodium Chloride (0.9% Saline Lock 10 Ml Syringe) 10 - 40 ml IV UD PRN PRN Reason: SALINE FLUSH Last Admin: 04/27/20 22:17 Dose: 10 ml Documented by: Medical Necessity - Tobacco Use Smoking Status: Never smoker Tobacco Use: Non-smoker Assessment/Plan All Active Problems (Last Reviewed 05/04/18 @ 09:[address] Laron Bacon MD) Swelling of both lower extremities (Acute) Hyperkalemia (Acute) Dyspnea (Acute) 84-year-old male with acute on chronic kidney disease request for dialysis catheter, leukocytosis, UTI, possible pyelonephritis Blood count down to 12.7 today we will plan for tunneled dialysis catheter tomorrow morning at 730. Remove dialysis catheter today.Patient no questions about the procedure insertion of right internal jugular dialysis catheter, possible left. Tootie Franklin M.D. Pager: [phone] [facility] [address] [place] [address], [facility], [address] [place] [address] Office: [phone] Inpatient E&M: [id number] Subs Hosp L2
--- NOTE | 2020-04-30 09:04 | CASEMGMT ---
SW spoke with patient and confirmed he is still in agreement with going to [facility]. He said he will do whatever is recommended. He requested a cup of ice. patient's RN said that is ok. SW gave patient a cup of ice. SW to follow for d/c to [facility] when medically ready and pending pre-cert. Amy VALDERRAMA MSW
[2020-04-30] MEDS: glipiZIDE 10 MG Tablet PO ×2 (09:34→16:26)
[2020-04-30] MEDS: Enoxaparin 30 MG/0.3 ML Syringe SC (09:34)
[2020-04-30] MEDS: amLODIPine 10 MG Tablet PO (09:34)
[2020-04-30] MEDS: Aspirin E.C. 81 MG Tablet PO (09:34)
[2020-04-30] MEDS: Ceftriaxone 1 GM/50 ML BAG IV (09:43)
--- NOTE | 2020-04-30 09:54 | PCM.PN.REN ---
Patient Problems: Active and Suspected Problems (Last Reviewed 05/04/18 @ 09:[address] Laron Bacon MD) Swelling of both lower extremities (Acute) Hyperkalemia (Acute) Dyspnea (Acute) Subjective: no new complaints - Physical Exam Vitals/I&O's: Vital Signs Temp Pulse Resp BP Pulse Ox 98.4 F 53 L 14 141/55 H 95 04/30/20 09:31 04/30/20 09:31 04/30/20 09:31 04/30/20 09:31 04/30/20 09:31 Oxygen Flow Rate (L/min) 1 Oxygen Delivery Method Room Air Weight: 107.5 kg Body Mass Index (BMI) 36.4 Intake and Output for Last 24 Hours 04/28/20 04/29/20 04/30/20 23:59 23:59 23:59 Intake Total 270 / 370 320 / 420 100 / 100 Output Total 150 / 150 2800 / 2800 0 / 0 Balance 120 / 220 -2480 / -2380 100 / 100 General: Alert, Oriented x3, Cooperative HEENT: Atraumatic, PERRLA, EOMI, Normocephalic Neck: Supple, No JVD, Negative Carotid Bruits Lungs: Clear to auscultation, Normal air movement Cardiovascular: Regular rate, No murmurs Abdomen: Bowel Sounds Present, Soft, Non Tender Extremities: No edema, Capillary Refill Less than 3 Seconds Skin: No rashes, No breakdown Musculoskeletal: No Tenderness to Palpation of Joints or Extremities Neurological: Cranial nerves II-XII grossly intact Psych/Mental Status: Normal Affect, Appropriate Microbiology Past 72 Hours 04/23/20 08:55 Blood Culture (Wb) - Left Forearm Blood Culture - Final No growth in 5 days. 04/23/20 09:00 Blood Culture (Wb) - Left Hand Blood Culture - Final No growth in 5 days. Laboratory Results 04/29/20 11:33: POC Glucose 136 H 04/29/20 16:33: POC Glucose 211 H 04/29/20 22:43: POC Glucose 240 H 04/30/20 05:04: WBC 12.7 H, RBC 3.75 L, Hgb 10.7 L, Hct 33.7 L, MCV 89.9, MCH 28.5, MCHC 31.8 L, RDW Std Deviation 47.4 H, RDW Coeff of Frances 14.3, Plt Count 349, MPV 11.6, Immature Gran % (Auto) 2.100 H, Neut % (Auto) 78.3 H, Lymph % (Auto) 8.3 L, [place] % (Auto) 9.0, Eos % (Auto) 1.7, Baso % (Auto) 0.6, Absolute Neuts (auto) 10.0 H, Absolute Lymphs (auto) 1.05, Nucleated RBC % 0 04/30/20 05:04: Sodium 135 L, Potassium 4.3, Chloride 99, Carbon Dioxide 30.0, Anion Gap 6, BUN 31 H, Creatinine 3.42 H, Estim Creat Clear Calc 16.90, Est GFR (MDRD) Af Amer 22 L, Est GFR (MDRD) Non-Af 18 L, BUN/Creatinine Ratio 9.1 L, Glucose 156 H, Calcium 7.9 L 04/30/20 06:50: POC Glucose 169 H Current Medications Acetaminophen (Acetaminophen 325 Mg Tablet) 650 mg PO Q6H PRN PRN PRN Reason: Pain Score 1-10 Last Admin: 04/23/20 09:40 Dose: 650 mg Documented by: Amlodipine Besylate (Amlodipine 10 Mg Tablet) 10 mg PO DAILY [facility] Last Admin: 04/30/20 09:34 Dose: 10 mg Documented by: Aspirin (Aspirin E.C. 81 Mg Tablet) 81 mg PO DAILY [facility] Last Admin: 04/30/20 09:34 Dose: 81 mg Documented by: Cholecalciferol (Cholecalciferol (Vit D3) 1,000 Unit (25mcg)) 5,000 unit PO DAILY [facility] Last Admin: 04/30/20 09:35 Dose: Not Given Documented by: Enoxaparin Sodium (Enoxaparin 30 Mg/0.3 Ml Syringe) 30 mg SC DAILY [facility] Last Admin: 04/30/20 09:34 Dose: 30 mg Documented by: Glipizide (Glipizide 10 Mg Tablet) 10 mg PO BIDAC [facility] Last Admin: 04/30/20 09:34 Dose: 10 mg Documented by: Sodium Chloride () 250 mls @ 15 mls/hr IV .[id number] PRN PRN Reason: Saline Flush Last Infusion: 04/23/20 11:07 Dose: 0 mls/hr Documented by: Sodium Chloride () 250 mls @ 15 mls/hr IV .[id number] PRN PRN Reason: Additional IVPB Infusion Ceftriaxone Sodium (Rocephin) 1 gm in 50 mls @ 100 mls/hr IV Q24 [facility] Last Admin: 04/30/20 09:43 Dose: 100 mls/hr Documented by: Insulin Glargine (Insulin Glargine 100 Units/Ml Pen) 30 units SC DINNER [facility] Last Admin: 04/29/20 17:17 Dose: Not Given Documented by: Insulin Human Lispro (Insulin Lispro 100 Unit/Ml Insuln.Pen) 0 unit SC ACHS [facility]; Protocol Last Admin: 04/30/20 06:52 Dose: 1 units Documented by: Nitroglycerin (Nitroglycerin (Inpatient Use) 0.4 Mg Tab.Subl) 0.4 mg SUBLINGUAL Q5M PRN PRN Reason: CARDIAC/CHEST PAIN Ondansetron HCl (Ondansetron 4 Mg/2 Ml Vial) 4 mg IV Q6H PRN PRN PRN Reason: NAUSEA/VOMITING Last Admin: 04/22/20 08:45 Dose: 4 mg Documented by: Sodium Chloride (0.9% Saline Lock 10 Ml Syringe) 10 - 40 ml IV UD PRN PRN Reason: SALINE FLUSH Last Admin: 04/27/20 22:17 Dose: 10 ml Documented by: Medical Necessity - Tobacco Use Smoking Status: Never smoker Tobacco Use: Non-smoker Assessment/Plan All Active Problems (Last Reviewed 05/04/18 @ 09:[address] Laron Bacon MD) Swelling of both lower extremities (Acute) Hyperkalemia (Acute) Dyspnea (Acute) KITTY likely CRS CKD 3 Hypervolemia HFpEF HTN Leukocytosis Hydronephrosis reviewed records from PCP office baseline creatinine as of Jun this year is around 2.0 presented with severe renal failure and anasarca. started dialysis in house CT imaging noted. left sided hydronephrosis which is being treated conservatively for now placement at dialysis unit, has a confirmed TTS schedule first shift WBC is high with findings of pyelo on CT. tunneled line tomorrow ok to dc after tunneled line HD tomorrow
--- NOTE | 2020-04-30 10:01 | CASEMGMT ---
RN CM NOTE: Per Dr Elise, plan is for pt to get tunnelled dialysis catheter tomorrow. Anticipate discharge on Tuesday. Call placed to [facility]. They were made aware of above. Tentative start date for dialysis is now Sat @ 0630. Call placed to [facility] and spoke w/Gracy. She was also made aware of above. Layla GARRISON RN CM
--- NOTE | 2020-04-30 10:37 | CASEMGMT ---
SAURAV called [facility] and left a voice mail letting her know that patient is getting dialysis catheter tomorrow (). He will likely be ready for discharge Tuesday. SAURAV then told her Tuesday would be the first day of outpatient dialysis that they would have to transport him to. SAURAV will fax updates to [facility]. Amy BERGMAN
[2020-04-30 12:01] LABS: Bedside Glucose 172 mg/dL (70-110)
--- NOTE | 2020-04-30 13:21 | DIALYSIS ---
Dressing removed from right IJ dialysis catheter. Used choloroprep to clean catheter exit site. Sutures removed. Catheter removed. Pressure applied x 10 minutes. Hemostasis achieved. Fresh gauze and tape applied. Pt denies complaints. Report was given to ISABEL Quesada. Prior to removal: bp:145/57, HR:55 Upon removal: bp:121/56, HR:60 15 min. post removal: bp:128/50, Hr:62
[2020-04-30 16:31] LABS: Bedside Glucose 238 mg/dL (70-110)
--- NOTE | 2020-04-30 16:37 | PCM.PN.ID ---
Patient Problems: Active and Suspected Problems (Last Reviewed 05/04/18 @ 09:[address] Laron Bacon MD) Swelling of both lower extremities (Acute) Hyperkalemia (Acute) Dyspnea (Acute) Subjective: Feeling better. No fever, no abd pain. - Physical Exam Vitals/I&O's: Vital Signs Temp Pulse Resp BP Pulse Ox 98.6 F 54 L 16 136/51 H 93 04/30/20 14:21 04/30/20 15:00 04/30/20 14:21 04/30/20 14:21 04/30/20 14:21 Oxygen Flow Rate (L/min) 1 Oxygen Delivery Method Room Air Weight: 107.5 kg Body Mass Index (BMI) 36.4 Intake and Output for Last 24 Hours 04/28/20 04/29/20 04/30/20 23:59 23:59 23:59 Intake Total 270 / 370 320 / 420 150 / 150 Output Total 150 / 150 2800 / 2800 0 / 0 Balance 120 / 220 -2480 / -2380 150 / 150 General: Alert, Cooperative, No apparent distress Lungs: Clear to auscultation, Normal air movement Cardiovascular: Regular rate, Regular Rhythm Abdomen: Soft, Non Tender, Non-Distended Skin: No rashes Microbiology Past 72 Hours 04/23/20 08:55 Blood Culture (Wb) - Left Forearm Blood Culture - Final No growth in 5 days. 04/23/20 09:00 Blood Culture (Wb) - Left Hand Blood Culture - Final No growth in 5 days. Laboratory Results 04/29/20 16:33: POC Glucose 211 H 04/29/20 22:43: POC Glucose 240 H 04/30/20 05:04: WBC 12.7 H, RBC 3.75 L, Hgb 10.7 L, Hct 33.7 L, MCV 89.9, MCH 28.5, MCHC 31.8 L, RDW Std Deviation 47.4 H, RDW Coeff of Frances 14.3, Plt Count 349, MPV 11.6, Immature Gran % (Auto) 2.100 H, Neut % (Auto) 78.3 H, Lymph % (Auto) 8.3 L, [place] % (Auto) 9.0, Eos % (Auto) 1.7, Baso % (Auto) 0.6, Absolute Neuts (auto) 10.0 H, Absolute Lymphs (auto) 1.05, Nucleated RBC % 0 04/30/20 05:04: Sodium 135 L, Potassium 4.3, Chloride 99, Carbon Dioxide 30.0, Anion Gap 6, BUN 31 H, Creatinine 3.42 H, Estim Creat Clear Calc 16.90, Est GFR (MDRD) Af Amer 22 L, Est GFR (MDRD) Non-Af 18 L, BUN/Creatinine Ratio 9.1 L, Glucose 156 H, Calcium 7.9 L 04/30/20 06:50: POC Glucose 169 H 04/30/20 11:34: POC Glucose 172 H 04/30/20 16:23: POC Glucose 238 H Current Medications Acetaminophen (Acetaminophen 325 Mg Tablet) 650 mg PO Q6H PRN PRN PRN Reason: Pain Score 1-10 Last Admin: 04/23/20 09:40 Dose: 650 mg Documented by: Amlodipine Besylate (Amlodipine 10 Mg Tablet) 10 mg PO DAILY [facility] Last Admin: 04/30/20 09:34 Dose: 10 mg Documented by: Aspirin (Aspirin E.C. 81 Mg Tablet) 81 mg PO DAILY [facility] Last Admin: 04/30/20 09:34 Dose: 81 mg Documented by: Cholecalciferol (Cholecalciferol (Vit D3) 1,000 Unit (25mcg)) 5,000 unit PO DAILY [facility] Last Admin: 04/30/20 09:35 Dose: Not Given Documented by: Enoxaparin Sodium (Enoxaparin 30 Mg/0.3 Ml Syringe) 30 mg SC DAILY [facility] Last Admin: 04/30/20 09:34 Dose: 30 mg Documented by: Glipizide (Glipizide 10 Mg Tablet) 10 mg PO BIDAC [facility] Last Admin: 04/30/20 16:26 Dose: 10 mg Documented by: Sodium Chloride () 250 mls @ 15 mls/hr IV .[id number] PRN PRN Reason: Saline Flush Last Infusion: 04/23/20 11:07 Dose: 0 mls/hr Documented by: Sodium Chloride () 250 mls @ 15 mls/hr IV .[id number] PRN PRN Reason: Additional IVPB Infusion Ceftriaxone Sodium (Rocephin) 1 gm in 50 mls @ 100 mls/hr IV Q24 [facility] Last Infusion: 04/30/20 11:30 Dose: Infused Documented by: Insulin Glargine (Insulin Glargine 100 Units/Ml Pen) 30 units SC [facility] Last Admin: 04/30/20 16:27 Dose: Not Given Documented by: Insulin Human Lispro (Insulin Lispro 100 Unit/Ml Insuln.Pen) 0 unit SC ACHS [facility]; Protocol Last Admin: 04/30/20 16:24 Dose: 3 units Documented by: Nitroglycerin (Nitroglycerin (Inpatient Use) 0.4 Mg Tab.Subl) 0.4 mg SUBLINGUAL Q5M PRN PRN Reason: CARDIAC/CHEST PAIN Ondansetron HCl (Ondansetron 4 Mg/2 Ml Vial) 4 mg IV Q6H PRN PRN PRN Reason: NAUSEA/VOMITING Last Admin: 04/22/20 08:45 Dose: 4 mg Documented by: Sodium Chloride (0.9% Saline Lock 10 Ml Syringe) 10 - 40 ml IV UD PRN PRN Reason: SALINE FLUSH Last Admin: 04/27/20 22:17 Dose: 10 ml Documented by: Medical Necessity - Tobacco Use Smoking Status: Never smoker Tobacco Use: Non-smoker Route of nutrition/ use of supplements: [] Nutritional Intake: [] IV Site: [] Lozano Catheter: [] - Assessment/Plan Antibiotics: [] Assessment/Plan: [] Active and Suspected Problems (Last Reviewed 05/04/18 @ 09:[address] Laron Bacon MD) Swelling of both lower extremities (Acute) Hyperkalemia (Acute) Dyspnea (Acute) KITTY, BLE edema - now on HD. Had false (+) covid Ag on admit, pcr neg. Has been on ceftriaxone since admit 04/20, ucx with ecoli. CT with hydronephrosis, wbc improving, no plan for urologic procedure at this point per Dr. Carroll. Feeling better. Will follow
--- NOTE | 2020-04-30 20:55 | PCM.PN.HOSP ---
Patient Problems: Active and Suspected Problems (Last Reviewed 05/04/18 @ 09:[address] Laron Bacon MD) Swelling of both lower extremities (Acute) Hyperkalemia (Acute) Dyspnea (Acute) Subjective: Feels better today, no issues overnight Vitals/I&O's: Vital Signs Temp Pulse Resp BP Pulse Ox 98.7 F 63 18 127/54 H 92 04/30/20 20:10 04/30/20 20:10 04/30/20 20:10 04/30/20 20:10 04/30/20 20:10 Oxygen Flow Rate (L/min) 1 Oxygen Delivery Method Room Air Weight: 236 lb 15.951 oz Body Mass Index (BMI) 36.4 Intake and Output for Last 24 Hours 04/28/20 04/29/20 04/30/20 23:59 23:59 23:59 Intake Total 270 / 370 320 / 420 150 / 150 Output Total 150 / 150 2800 / 2800 0 / 0 Balance 120 / 220 -2480 / -2380 150 / 150 General: Alert, Oriented x3, Cooperative, No apparent distress HEENT: Atraumatic, PERRLA, EOMI, Normocephalic Oral: Moist Mucosa Neck: Supple, No JVD Lungs: Clear to auscultation, Normal air movement, No rhonchi, No wheeze, No rales, Diminished Cardiovascular: Regular rate, Regular Rhythm, Normal S1, Normal S2, No murmurs Abdomen: Soft, Non Tender, Non-Distended, No Hepato-splenomegaly Extremities: Capillary Refill Less than 3 Seconds, Edema - 2+ pitting bilateral Skin: No breakdown Neurological: Neuro grossly intact, Sensory exam intact to light touch and pain Psych/Mental Status: Normal Affect, Appropriate Microbiology Past 72 Hours 04/23/20 08:55 Blood Culture (Wb) - Left Forearm Blood Culture - Final No growth in 5 days. 04/23/20 09:00 Blood Culture (Wb) - Left Hand Blood Culture - Final No growth in 5 days. Laboratory Results 04/29/20 22:43: POC Glucose 240 H 04/30/20 05:04: WBC 12.7 H, RBC 3.75 L, Hgb 10.7 L, Hct 33.7 L, MCV 89.9, MCH 28.5, MCHC 31.8 L, RDW Std Deviation 47.4 H, RDW Coeff of Frances 14.3, Plt Count 349, MPV 11.6, Immature Gran % (Auto) 2.100 H, Neut % (Auto) 78.3 H, Lymph % (Auto) 8.3 L, [place] % (Auto) 9.0, Eos % (Auto) 1.7, Baso % (Auto) 0.6, Absolute Neuts (auto) 10.0 H, Absolute Lymphs (auto) 1.05, Nucleated RBC % 0 04/30/20 05:04: Sodium 135 L, Potassium 4.3, Chloride 99, Carbon Dioxide 30.0, Anion Gap 6, BUN 31 H, Creatinine 3.42 H, Estim Creat Clear Calc 16.90, Est GFR (MDRD) Af Amer 22 L, Est GFR (MDRD) Non-Af 18 L, BUN/Creatinine Ratio 9.1 L, Glucose 156 H, Calcium 7.9 L 04/30/20 06:50: POC Glucose 169 H 04/30/20 11:34: POC Glucose 172 H 04/30/20 16:23: POC Glucose 238 H Current Medications Acetaminophen (Acetaminophen 325 Mg Tablet) 650 mg PO Q6H PRN PRN PRN Reason: Pain Score 1-10 Last Admin: 04/23/20 09:40 Dose: 650 mg Documented by: Amlodipine Besylate (Amlodipine 10 Mg Tablet) 10 mg PO DAILY [facility] Last Admin: 04/30/20 09:34 Dose: 10 mg Documented by: Aspirin (Aspirin E.C. 81 Mg Tablet) 81 mg PO DAILY [facility] Last Admin: 04/30/20 09:34 Dose: 81 mg Documented by: Cholecalciferol (Cholecalciferol (Vit D3) 1,000 Unit (25mcg)) 5,000 unit PO DAILY [facility] Last Admin: 04/30/20 09:35 Dose: Not Given Documented by: Enoxaparin Sodium (Enoxaparin 30 Mg/0.3 Ml Syringe) 30 mg SC DAILY [facility] Last Admin: 04/30/20 09:34 Dose: 30 mg Documented by: Glipizide (Glipizide 10 Mg Tablet) 10 mg PO BIDAC [facility] Last Admin: 04/30/20 16:26 Dose: 10 mg Documented by: Sodium Chloride () 250 mls @ 15 mls/hr IV .[id number] PRN PRN Reason: Saline Flush Last Infusion: 04/23/20 11:07 Dose: 0 mls/hr Documented by: Sodium Chloride () 250 mls @ 15 mls/hr IV .[id number] PRN PRN Reason: Additional IVPB Infusion Ceftriaxone Sodium (Rocephin) 1 gm in 50 mls @ 100 mls/hr IV Q24 [facility] Last Infusion: 04/30/20 11:30 Dose: Infused Documented by: Insulin Glargine (Insulin Glargine 100 Units/Ml Pen) 30 units SC DINNER [facility] Last Admin: 04/30/20 16:27 Dose: Not Given Documented by: Insulin Human Lispro (Insulin Lispro 100 Unit/Ml Insuln.Pen) 0 unit SC ACHS [facility]; Protocol Last Admin: 04/30/20 16:24 Dose: 3 units Documented by: Nitroglycerin (Nitroglycerin (Inpatient Use) 0.4 Mg Tab.Subl) 0.4 mg SUBLINGUAL Q5M PRN PRN Reason: CARDIAC/CHEST PAIN Ondansetron HCl (Ondansetron 4 Mg/2 Ml Vial) 4 mg IV Q6H PRN PRN PRN Reason: NAUSEA/VOMITING Last Admin: 04/22/20 08:45 Dose: 4 mg Documented by: Sodium Chloride (0.9% Saline Lock 10 Ml Syringe) 10 - 40 ml IV UD PRN PRN Reason: SALINE FLUSH Last Admin: 04/27/20 22:17 Dose: 10 ml Documented by: STROKE Vital Signs/Narrative: Vital Signs Temp Pulse Resp BP Pulse Ox 04/30/20 20:10 98.7 F 63 18 127/54 H 92 Medical Necessity - Tobacco Use Smoking Status: Never smoker Tobacco Use: Non-smoker Assessment/Plan All Active Problems (Last Reviewed 05/04/18 @ 09:[address] Laron Bacon MD) Swelling of both lower extremities (Acute) Hyperkalemia (Acute) Dyspnea (Acute) 1. Acute diastolic CHF/bradycardia/HTN -Echo with an EF of 53% and stage II diastolic dysfunction with no wall motion abnormalities -Troponins were negative x3 -Appreciate cardiology input, continue with 1500 cc fluid restriction -Continue with dialysis -Hold beta-nicole, will continue with Norvasc -Hold lisinopril secondary to KITTY 2. KITTY on CKD 3 -Appreciate nephrology assistance -Plan was to place a dialysis catheter on Tuesday however surgery does not feel comfortable doing so given elevated white count. His white count is likely reactive, and he remains afebrile 3. Left pyelonephritis -WBC improving -ID and urology following -Day 11 of Rocephin 4. DM 2 -Blood sugars are stable continue with insulin -Accu-Cheks AC at bedtime DVT: Lovenox Inpatient E&M: 97090 Subs Hosp L2
[2020-04-30 23:06] LABS: Bedside Glucose 231 mg/dL (70-110)
[2020-05-01] VITALS (22 sets, daily range): BP systolic 103–145; BP diastolic 44–67; PULSE 33–66; RESP 14–18; TEMP 36.2–37.2; O2SAT 92–98; BMI 33.6; BMI 36.4
[2020-05-01 05:50] LABS: Absolute Lymphocyte Count 0.98 X10^3/uL (0.83-4.51); Absolute Neutrophil Count 8.4 X10^3/uL (2.0-7.7); Basophil# 0.07 X10^3/uL; Basophil% 0.6 % (0-1); Eosinophil# 0.21 X10^3/uL; Eosinophils% 1.9 % (0-5); Hemoglobin 10.8 g/dL (13.0-16.5); Lymphocyte # 0.98 X10^3/ul (4.0); Mean Corp Hgb Conc 32.7 g/dL (32-36); Mean Corpuscular Hgb 29.3 pg (27.0-32.0); Mean Corpuscular Volume 89.4 fL (80-94); Mean Platelet Vol. 11.1 fl (6.2-12.0); Monocyte# 1.07 X10^3/uL; Monocyte% 9.8 % (0-10); NRBC Flagged by Analyzer 0 % (0-5); Neutrophil % 77.3 % (47-70); Platelet Count 327 K/mm3 (150-450); RBC Distribution Width CV 13.9 % (11.6-14.6); RBC Distribution Width SD 45.3 fl (35.1-43.9); Red Blood Count 3.69 M/mm3 (4.6-6.2); White Blood Count 10.9 K/mm3 (4.4-11.0)
[2020-05-01 06:05] LABS: Anion Gap 8 (5-15); BUN 43 mg/dL (7-18); BUN/Creat Ratio 10.3 RATIO (10-20); Calcium,Total 7.8 mg/dL (8.5-10.1); Chloride 98 mmol/L (98-107); Creatinine, Serum 4.19 mg/dL (0.70-1.30); EST Glomerular Filtration Rate 15 mL/min (>60); Est Glom Filt Rate - Afr Amer 18 mL/min (>60); Estimated Creatinine Clearance 13.79 ml/min; Glucose 171 mg/dL (74-106); Potassium 4.4 mmol/L (3.5-5.1); Sodium Level 134 mmol/L (136-145)
[2020-05-01 06:45] LABS: Bedside Glucose 161 mg/dL (70-110)
[2020-05-01] MEDS: Bupiv/Epi 0.25% 30 ML Vial (07:45)
[2020-05-01] MEDS: Lidocaine 1% (20 ml mdv) 20 ML Vial (07:45)
--- NOTE | 2020-05-01 07:47 | PCS.PANDOC ---
Addendum entered by Hui See 05/01/20 07:49: Correction Date: 04/28/2020 Time:2199 Original Note: PANDEMIC DOCUMENTATION INITIATED: Date: 05/01/2020 Time: 0700
[2020-05-01] MEDS: Heparin 10,000 UNITS/10 ML Vial 10000 UNITS (07:55)
--- NOTE | 2020-05-01 08:12 | PCM.OPRPT ---
Report of Operation Date of Procedure: 05/01/20 Pre-Operative Diagnosis: Acute on chronic kidney disease Post-Operative Diagnosis: Same Surgery/Procedure Performed:: Placement of right IJ tunneled dialysis catheter. Use of ultrasound. Use of fluoroscopy Type of Anesthesia:: Local MAC Anesthesiologist: Lauro Cat Special Medications: Patient on Rocephin continuously IV on the floor Estimated Blood Loss (mL): < 10 cc Fluids Replaced: 200 cc Description of Procedure: After informed consent was given, the patient was brought to the operating room and placed in the supine position. Appropriate time out protocol was followed. He was then given IV conscious sedation for anesthesia. The patient's right upper chest and neck were then prepped with a surgical skin preparation and sterile surgical drapes were placed. After proper landmarks were ascertained, the skin at the upper right chest area was then infiltrated with 1:1 mixture of 1% lidocaine with epinephrine and 0.5% maricaine. A needle trocar was then inserted into the right internal jugular vein with ultrasound guidance-multiple vessels were viewed with u/s and the right IJ was chosen-- and there was good aspiration of venous blood. A wire was then threaded into the needle trocar and this was visualized under fluoroscopy to ensure that the wire was in the superior vena cava. Once this was done, then the needle trocar was removed. A small incision was made with an 11 blade knife at the wire entrance site. The dilator x2 with the introducer sheath attached was then placed over the wire into the right internal jugular vein via the Seldinger technique and this was visualized under fluoroscopy. Next the introducer and sheath were in proper position as visualized by fluoroscopy. The location of the cuffed was estimated on the skin, an incision was made with a 15 blade scalpel. The 14.5 Fr x 19 cm Palindrome dual lumen (Lot [id number] reference [id number]) was tunneled from the chest incision to the right neck incision. The sheath was removed. The catheter was placed through the introducer and was positioned with its tip at the junction of the superior vena cava and the right atrium as visualized under fluoroscopy. The cuff of the catheter was in the subcutaneous tissue. The catheter flushed and kya well with saline. Catheter was also flushed with 1.6 cc of 1-10,000 of heparin. Hemostasis was assured. Silver dressing was placed at the catheter exit site. Catheter was sutured with 3-0 nylon sutures. The neck incision was sutured with interrupted 3-0 Vicryl interrupted sutures x2 and Steri-Strips were placed. A large OpSite was placed over the catheter site and a small OpSite over the neck incision. The patient tolerated the procedure well. Grafts/Implants Used: 14.5 Fr x 19 cm Palindrome dual lumen (Lot [id number] reference [id number] - Complications none
--- NOTE | 2020-05-01 08:20 | RAD_ITS ---
STUDY: X-RAY CHEST REASON FOR EXAM: Male, 85 years old. POST DIALYSIS CATH PLACEMENT TECHNIQUE: Single AP portable view of the chest. COMPARISON: Comparison is made with prior study dated 04/20/2020. FINDINGS: A right sided dialysis catheter has been placed with the tip at the junction of the superior vena cava and right atrium. EKG electrodes are seen. Mild increased markings at the left lung base suggestive of atelectasis. There is no demonstrated pleural abnormality. Normal size heart. Normal mediastinum and tanya. Normal visualized pulmonary arteries. Normal visualized aortic arch and descending thoracic aorta. There are degenerative changes of the visualized thoracic spine. Normal visualized ribs, clavicles, and shoulders. There is no demonstrated abnormality of the visualized soft tissue structures of the upper abdomen. RAD/CXR for Line Placement IMPRESSION: The tip of the right hemodialysis catheter is at the junction of the superior vena cava and right atrium. Minimal increased linear markings at the left lung base suggestive of atelectasis. Electronically Signed: Kareem Yao, at 9:32 EST , Service support ,
--- NOTE | 2020-05-01 11:26 | CASEMGMT ---
Tunnel cath note and CXR faxed to [facility] at this time. Ion HALL CM
[2020-05-01 12:05] LABS: Bedside Glucose 131 mg/dL (70-110)
--- NOTE | 2020-05-01 14:04 | PCM.PN.REN ---
Patient Problems: Active and Suspected Problems (Last Reviewed 05/04/18 @ 09:[address] Laron Bacon MD) Swelling of both lower extremities (Acute) Hyperkalemia (Acute) Dyspnea (Acute) Subjective: no new events - Physical Exam Vitals/I&O's: Vital Signs Temp Pulse Resp BP Pulse Ox 98 F 57 L 14 140/60 H 94 05/01/20 11:35 05/01/20 11:35 05/01/20 11:35 05/01/20 11:35 05/01/20 11:35 Oxygen Flow Rate (L/min) 3 Oxygen Delivery Method Room Air Weight: 106.4 kg Body Mass Index (BMI) 33.6 Intake and Output for Last 24 Hours 04/29/20 04/30/20 05/01/20 23:59 23:59 23:59 Intake Total 320 / 420 150 / 270 240 / 240 Output Total 2800 / 2800 0 / 0 0 / 0 Balance -2480 / -2380 150 / 270 240 / 240 General: Alert, Oriented x3, Cooperative HEENT: Atraumatic, PERRLA, EOMI, Normocephalic Neck: Supple, No JVD, Negative Carotid Bruits Lungs: Clear to auscultation, Normal air movement Cardiovascular: Regular rate, No murmurs Abdomen: Bowel Sounds Present, Soft, Non Tender Extremities: No edema, Capillary Refill Less than 3 Seconds Skin: No rashes, No breakdown Musculoskeletal: No Tenderness to Palpation of Joints or Extremities Neurological: Cranial nerves II-XII grossly intact Psych/Mental Status: Normal Affect, Appropriate Microbiology Past 72 Hours 04/23/20 08:55 Blood Culture (Wb) - Left Forearm Blood Culture - Final No growth in 5 days. 04/23/20 09:00 Blood Culture (Wb) - Left Hand Blood Culture - Final No growth in 5 days. Laboratory Results 04/30/20 16:23: POC Glucose 238 H 04/30/20 22:55: POC Glucose 231 H 05/01/20 05:30: WBC 10.9, RBC 3.69 L, Hgb 10.8 L, Hct 33.0 L, MCV 89.4, MCH 29.3, MCHC 32.7, RDW Std Deviation 45.3 H, RDW Coeff of Frances 13.9, Plt Count 327, MPV 11.1, Immature Gran % (Auto) 1.400 H, Neut % (Auto) 77.3 H, Lymph % (Auto) 9.0 L, [place] % (Auto) 9.8, Eos % (Auto) 1.9, Baso % (Auto) 0.6, Absolute Neuts (auto) 8.4 H, Absolute Lymphs (auto) 0.98, Nucleated RBC % 0 05/01/20 05:30: Sodium 134 L, Potassium 4.4, Chloride 98, Carbon Dioxide 28.0, Anion Gap 8, BUN 43 H, Creatinine 4.19 H, Estim Creat Clear Calc 13.79, Est GFR (MDRD) Af Amer 18 L, Est GFR (MDRD) Non-Af 15 L, BUN/Creatinine Ratio 10.3, Glucose 171 H, Calcium 7.8 L 05/01/20 06:38: POC Glucose 161 H 05/01/20 12:01: POC Glucose 131 H Current Medications Acetaminophen (Acetaminophen 325 Mg Tablet) 650 mg PO Q6H PRN PRN PRN Reason: Pain Score 1-10 Last Admin: 04/23/20 09:40 Dose: 650 mg Documented by: Amlodipine Besylate (Amlodipine 10 Mg Tablet) 10 mg PO DAILY [facility] Last Admin: 04/30/20 09:34 Dose: 10 mg Documented by: Aspirin (Aspirin E.C. 81 Mg Tablet) 81 mg PO DAILY [facility] Last Admin: 04/30/20 09:34 Dose: 81 mg Documented by: Cholecalciferol (Cholecalciferol (Vit D3) 1,000 Unit (25mcg)) 5,000 unit PO DAILY [facility] Last Admin: 04/30/20 09:35 Dose: Not Given Documented by: Enoxaparin Sodium (Enoxaparin 30 Mg/0.3 Ml Syringe) 30 mg SC DAILY [facility] Last Admin: 04/30/20 09:34 Dose: 30 mg Documented by: Glipizide (Glipizide 10 Mg Tablet) 10 mg PO BIDAC [facility] Last Admin: 04/30/20 16:26 Dose: 10 mg Documented by: Sodium Chloride () 250 mls @ 15 mls/hr IV .[id number] PRN PRN Reason: Saline Flush Last Infusion: 04/23/20 11:07 Dose: 0 mls/hr Documented by: Sodium Chloride () 250 mls @ 15 mls/hr IV .[id number] PRN PRN Reason: Additional IVPB Infusion Ceftriaxone Sodium (Rocephin) 1 gm in 50 mls @ 100 mls/hr IV Q24 [facility] [place] Last Infusion: 04/30/20 11:30 Dose: Infused Documented by: Insulin Glargine (Insulin Glargine 100 Units/Ml Pen) 30 units SC DINNER [facility] [place] Last Admin: 04/30/20 16:27 Dose: Not Given Documented by: Insulin Human Lispro (Insulin Lispro 100 Unit/Ml Insuln.Pen) 0 unit SC ACHS [facility]; Protocol Last Admin: 05/01/20 06:38 Dose: Not Given Documented by: Nitroglycerin (Nitroglycerin (Inpatient Use) 0.4 Mg Tab.Subl) 0.4 mg SUBLINGUAL Q5M PRN PRN Reason: CARDIAC/CHEST PAIN Ondansetron HCl (Ondansetron 4 Mg/2 Ml Vial) 4 mg IV Q6H PRN PRN PRN Reason: NAUSEA/VOMITING Last Admin: 04/22/20 08:45 Dose: 4 mg Documented by: Sodium Chloride (0.9% Saline Lock 10 Ml Syringe) 10 - 40 ml IV UD PRN PRN Reason: SALINE FLUSH Last Admin: 04/27/20 22:17 Dose: 10 ml Documented by: Medical Necessity - Tobacco Use Smoking Status: Never smoker Tobacco Use: Non-smoker Assessment/Plan All Active Problems (Last Reviewed 05/04/18 @ 09:[address] Laron Bacon MD) Swelling of both lower extremities (Acute) Hyperkalemia (Acute) Dyspnea (Acute) KITTY likely CRS CKD 3 Hypervolemia HFpEF HTN Leukocytosis Hydronephrosis reviewed records from PCP office baseline creatinine as of Jun this year is around 2.0 presented with severe renal failure and anasarca. started dialysis in house CT imaging noted. left sided hydronephrosis which is being treated conservatively for now placement at dialysis unit, has a confirmed TTS schedule first shift tunneled line placed today ok to dc from my end
[2020-05-01] MEDS: Heparin 10,000 UNITS/10 ML Vial IV (14:17)
--- NOTE | 2020-05-01 15:00 | DIALYSIS ---
Hemodialysis completed x 4hrs. -2800ml off today. bp started to drop toward end of tx. stable t/o. CVC closed with heparin. See HD Flowsheet for full tx details. Report to Marcia Ulloa RN
--- NOTE | 2020-05-01 15:30 | PN_ITS ---
Patient Problems: Active and Suspected Problems (Last Reviewed 05/04/18 @ 09:[address] Laron Bacon MD) Swelling of both lower extremities (Acute) Hyperkalemia (Acute) Dyspnea (Acute) Subjective: Tolerated the insertion of his tunneled catheters today. His white count was normal. He was seen while receiving dialysis. I discussed with him the need to go to a fdc facility, he is now hesitating about going I did explain to him that it is much riskier to go home and that he would like to return to the hospital within a week or 2 meeting placed at that time. We will need to follow-up with him as well as social work and case management about his decision. Vitals/I&O's: Vital Signs Temp Pulse Resp BP Pulse Ox 98.1 F 55 L 16 114/50 L 92 05/01/20 14:32 05/01/20 14:32 05/01/20 14:32 05/01/20 14:32 05/01/20 13:45 Oxygen Flow Rate (L/min) 3 Oxygen Delivery Method Room Air Weight: 234 lb 9.149 oz Body Mass Index (BMI) 33.6 Intake and Output for Last 24 Hours 04/29/20 04/30/20 05/01/20 23:59 23:59 23:59 Intake Total 320 / 420 150 / 270 240 / 240 Output Total 2800 / 2800 0 / 0 2800 / 2800 Balance -2480 / -2380 150 / 270 -2560 / -2560 General: Alert, Oriented x3, Cooperative, No apparent distress HEENT: Atraumatic, PERRLA, EOMI, Normocephalic Oral: Moist Mucosa Neck: Supple, No JVD Lungs: Clear to auscultation, Normal air movement, No rhonchi, No wheeze, No rales, Diminished Cardiovascular: Regular rate, Regular Rhythm, Normal S1, Normal S2, No murmurs Abdomen: Soft, Non Tender, Non-Distended, No Hepato-splenomegaly Extremities: Capillary Refill Less than 3 Seconds, Edema - 2+ pitting bilateral Skin: No breakdown Neurological: Neuro grossly intact, Sensory exam intact to light touch and pain Psych/Mental Status: Normal Affect, Appropriate Laboratory Results 04/30/20 16:23: POC Glucose 238 H 04/30/20 22:55: POC Glucose 231 H 05/01/20 05:30: WBC 10.9, RBC 3.69 L, Hgb 10.8 L, Hct 33.0 L, MCV 89.4, MCH 29.3, MCHC 32.7, RDW Std Deviation 45.3 H, RDW Coeff of Frances 13.9, Plt Count 327, MPV 11.1, Immature Gran % (Auto) 1.400 H, Neut % (Auto) 77.3 H, Lymph % (Auto) 9.0 L, [place] % (Auto) 9.8, Eos % (Auto) 1.9, Baso % (Auto) 0.6, Absolute Neuts (auto) 8.4 H, Absolute Lymphs (auto) 0.98, Nucleated RBC % 0 05/01/20 05:30: Sodium 134 L, Potassium 4.4, Chloride 98, Carbon Dioxide 28.0, Anion Gap 8, BUN 43 H, Creatinine 4.19 H, Estim Creat Clear Calc 13.79, Est GFR (MDRD) Af Amer 18 L, Est GFR (MDRD) Non-Af 15 L, BUN/Creatinine Ratio 10.3, Glucose 171 H, Calcium 7.8 L 05/01/20 06:38: POC Glucose 161 H 05/01/20 12:01: POC Glucose 131 H Current Medications Acetaminophen (Acetaminophen 325 Mg Tablet) 650 mg PO Q6H PRN PRN PRN Reason: Pain Score 1-10 Last Admin: 04/23/20 09:40 Dose: 650 mg Documented by: Amlodipine Besylate (Amlodipine 10 Mg Tablet) 10 mg PO DAILY [facility] Last Admin: 04/30/20 09:34 Dose: 10 mg Documented by: Aspirin (Aspirin E.C. 81 Mg Tablet) 81 mg PO DAILY [facility] Last Admin: 04/30/20 09:34 Dose: 81 mg Documented by: Cholecalciferol (Cholecalciferol (Vit D3) 1,000 Unit (25mcg)) 5,000 unit PO DAILY [facility] Last Admin: 04/30/20 09:35 Dose: Not Given Documented by: Enoxaparin Sodium (Enoxaparin 30 Mg/0.3 Ml Syringe) 30 mg SC DAILY [facility] Last Admin: 04/30/20 09:34 Dose: 30 mg Documented by: Glipizide (Glipizide 10 Mg Tablet) 10 mg PO BIDAC [facility] Last Admin: 12/09/20 16:26 Dose: 10 mg Documented by: Sodium Chloride () 250 mls @ 15 mls/hr IV .[id number] PRN PRN Reason: Saline Flush Last Infusion: 04/23/20 11:07 Dose: 0 mls/hr Documented by: Sodium Chloride () 250 mls @ 15 mls/hr IV .[id number] PRN PRN Reason: Additional IVPB Infusion Ceftriaxone Sodium (Rocephin) 1 gm in 50 mls @ 100 mls/hr IV Q24 [facility] Last Infusion: 04/30/20 11:30 Dose: Infused Documented by: Insulin Glargine (Insulin Glargine 100 Units/Ml Pen) 30 units SC DINNER [facility] Last Admin: 04/30/20 16:27 Dose: Not Given Documented by: Insulin Human Lispro (Insulin Lispro 100 Unit/Ml Insuln.Pen) 0 unit SC ACHS [facility]; Protocol Last Admin: 05/01/20 06:38 Dose: Not Given Documented by: Nitroglycerin (Nitroglycerin (Inpatient Use) 0.4 Mg Tab.Subl) 0.4 mg SUBLINGUAL Q5M PRN PRN Reason: CARDIAC/CHEST PAIN Ondansetron HCl (Ondansetron 4 Mg/2 Ml Vial) 4 mg IV Q6H PRN PRN PRN Reason: NAUSEA/VOMITING Last Admin: 04/22/20 08:45 Dose: 4 mg Documented by: Sodium Chloride (0.9% Saline Lock 10 Ml Syringe) 10 - 40 ml IV UD PRN PRN Reason: SALINE FLUSH Last Admin: 04/27/20 22:17 Dose: 10 ml Documented by: STROKE Vital Signs/Narrative: Vital Signs Temp Pulse Resp BP Pulse Ox 05/01/20 14:32 98.1 F 55 L 16 114/50 L 05/01/20 13:45 98 F 56 L 15 111/49 L 92 05/01/20 11:35 98 F 57 L 14 140/60 H 94 Medical Necessity - Tobacco Use Smoking Status: Never smoker Tobacco Use: Non-smoker Assessment/Plan All Active Problems (Last Reviewed 05/04/18 @ 09:[address] Laron Bacon MD) Swelling of both lower extremities (Acute) Hyperkalemia (Acute) Dyspnea (Acute) 1. Acute diastolic CHF/bradycardia/HTN -Echo with an EF of 53% and stage II diastolic dysfunction with no wall motion abnormalities -Troponins were negative x3 -Appreciate cardiology input, continue with 1500 cc fluid restriction -Continue with dialysis -Hold beta-nicole, will continue with Norvasc -Discontinue lisinopril 2. Acute renal failure on CKD 3 with anasarca -Appreciate nephrology assistance -He received a tunneled catheter today. He is dialysis sessions will be Tuesday, , Tuesday. We will attempt to discharge him to a fdc facility tomorrow so he can go to his outpatient dialysis on Tuesday 3. Left pyelonephritis -WBC normalized -ID and urology following -Day 12 of Rocephin 4. DM 2 -Blood sugars are stable continue with insulin -Accu-Cheks AC at bedtime DVT: Lovenox Inpatient E&M: 94383 Subs Hosp L2
--- NOTE | 2020-05-01 15:34 | NURSING ---
Pt post op HD cath placement. Morning meds late d/t dialysis treatment.
[2020-05-01] MEDS: Ceftriaxone 1 GM/50 ML BAG IV (15:43)
[2020-05-01] MEDS: Insulin Lispro 100 UNIT/ML INSULN.PEN SC ×2 (16:41→22:10)
[2020-05-01] MEDS: glipiZIDE 10 MG Tablet PO (16:42)
[2020-05-01 16:51] LABS: Bedside Glucose 221 mg/dL (70-110)
[2020-05-01 22:20] LABS: Bedside Glucose 264 mg/dL (70-110)
[2020-05-02] VITALS (7 sets, daily range): BP systolic 102–115; BP diastolic 44–51; PULSE 48–60; RESP 16; TEMP 36.6–36.9; O2SAT 96; BMI 36.4
[2020-05-02 06:56] LABS: Bedside Glucose 126 mg/dL (70-110)
[2020-05-02] MEDS: glipiZIDE 10 MG Tablet PO (07:45)
--- NOTE | 2020-05-02 08:07 | PCM.PN.REN ---
Patient Problems: Active and Suspected Problems (Last Reviewed 05/04/18 @ 09:[address] Laron Bacon MD) Swelling of both lower extremities (Acute) Hyperkalemia (Acute) Dyspnea (Acute) Subjective: no new events - Physical Exam Vitals/I&O's: Vital Signs Temp Pulse Resp BP Pulse Ox 97.9 F 48 L 16 102/44 L 96 05/02/20 03:20 05/02/20 04:03 05/02/20 03:20 05/02/20 03:20 05/02/20 03:20 Oxygen Flow Rate (L/min) 3 Oxygen Delivery Method Room Air Weight: 106.4 kg Body Mass Index (BMI) 33.6 Intake and Output for Last 24 Hours 04/30/20 05/01/20 05/02/20 23:59 23:59 23:59 Intake Total 150 / 270 530 / 530 250 / 250 Output Total 0 / 0 2800 / 2800 0 / 0 Balance 150 / 270 -2270 / -2270 250 / 250 General: Alert, Oriented x3, Cooperative HEENT: Atraumatic, PERRLA, EOMI, Normocephalic Neck: Supple, No JVD, Negative Carotid Bruits Lungs: Clear to auscultation, Normal air movement Cardiovascular: Regular rate, No murmurs Abdomen: Bowel Sounds Present, Soft, Non Tender Extremities: No edema, Capillary Refill Less than 3 Seconds Skin: No rashes, No breakdown Musculoskeletal: No Tenderness to Palpation of Joints or Extremities Neurological: Cranial nerves II-XII grossly intact Psych/Mental Status: Normal Affect, Appropriate Laboratory Results 05/01/20 12:01: POC Glucose 131 H 05/01/20 16:38: POC Glucose 221 H 05/01/20 22:06: POC Glucose 264 H 05/02/20 06:49: POC Glucose 126 H Current Medications Acetaminophen (Acetaminophen 325 Mg Tablet) 650 mg PO Q6H PRN PRN PRN Reason: Pain Score 1-10 Last Admin: 04/23/20 09:40 Dose: 650 mg Documented by: Aspirin (Aspirin E.C. 81 Mg Tablet) 81 mg PO DAILY [facility] Last Admin: 05/01/20 15:33 Dose: Not Given Documented by: Cholecalciferol (Cholecalciferol (Vit D3) 1,000 Unit (25mcg)) 5,000 unit PO DAILY [facility] Last Admin: 05/01/20 15:45 Dose: Not Given Documented by: Enoxaparin Sodium (Enoxaparin 30 Mg/0.3 Ml Syringe) 30 mg SC DAILY [facility] Last Admin: 05/01/20 15:33 Dose: Not Given Documented by: Glipizide (Glipizide 10 Mg Tablet) 10 mg PO BIDAC [facility] Last Admin: 05/02/20 07:45 Dose: 10 mg Documented by: Sodium Chloride () 250 mls @ 15 mls/hr IV .[id number] PRN PRN Reason: Saline Flush Last Infusion: 04/23/20 11:07 Dose: 0 mls/hr Documented by: Sodium Chloride () 250 mls @ 15 mls/hr IV .[id number] PRN PRN Reason: Additional IVPB Infusion Ceftriaxone Sodium (Rocephin) 1 gm in 50 mls @ 100 mls/hr IV Q24 [facility] Last Infusion: 05/01/20 16:17 Dose: Infused Documented by: Insulin Glargine (Insulin Glargine 100 Units/Ml Pen) 30 units SC DINNER [facility] Last Admin: 05/01/20 16:40 Dose: 30 u Documented by: Insulin Human Lispro (Insulin Lispro 100 Unit/Ml Insuln.Pen) 0 unit SC [facility]; Protocol Last Admin: 05/02/20 06:54 Dose: Not Given Documented by: Nitroglycerin (Nitroglycerin (Inpatient Use) 0.4 Mg Tab.Subl) 0.4 mg SUBLINGUAL Q5M PRN PRN Reason: CARDIAC/CHEST PAIN Ondansetron HCl (Ondansetron 4 Mg/2 Ml Vial) 4 mg IV Q6H PRN PRN PRN Reason: NAUSEA/VOMITING Last Admin: 04/22/20 08:45 Dose: 4 mg Documented by: Sodium Chloride (0.9% Saline Lock 10 Ml Syringe) 10 - 40 ml IV UD PRN PRN Reason: SALINE FLUSH Last Admin: 04/27/20 22:17 Dose: 10 ml Documented by: Medical Necessity - Tobacco Use Smoking Status: Never smoker Tobacco Use: Non-smoker Assessment/Plan All Active Problems (Last Reviewed 05/04/18 @ 09:[address] Laron Bacon MD) Swelling of both lower extremities (Acute) Hyperkalemia (Acute) Dyspnea (Acute) KITTY likely CRS CKD 3 Hypervolemia HFpEF HTN Leukocytosis Hydronephrosis reviewed records from PCP office baseline creatinine as of Jun this year is around 2.0 presented with severe renal failure and anasarca. started dialysis in house CT imaging noted. left sided hydronephrosis which is being treated conservatively for now placement at dialysis unit, has a confirmed TTS schedule first shift tunneled line in place BP is low. dc amlodipine ok to dc from my end
--- NOTE | 2020-05-02 08:39 | CASEMGMT ---
SAURAV spoke with therapy this am and patient would be fine if he went home instead of the SNF. SAURAV met with patient and he of course said he would prefer to go home. SAURAV asked if he would have transportation to dialysis. He said he would. SAURAV told him his schedule T,Th, and Sat 630a. He was surprised it was so early. SAURAV told him as other times open up he may be able to switch times. SAURAV asked him about home health and he declined. SAURAV asked if SW could call and talk with his daughter to let her know what the plan is now. He said that is fine. SAURAV called patient's daughter, Hilaria and let her know the plan and that therapy said he is okay for home. She said they can transport him to dialysis. SAURAV told her the schedule. She was made aware he will likely be discharged today. SAURAV called Andressa at [facility] and let her know patient is now going home. Plan[facility] T[facility]TH, Sat at 630a. Amy VALDERRAMA MSW
[2020-05-02] MEDS: Aspirin E.C. 81 MG Tablet PO (10:02)
[2020-05-02] MEDS: Enoxaparin 30 MG/0.3 ML Syringe SC (10:02)
--- NOTE | 2020-05-02 10:55 | DCINST_ITS ---
- Discharge Diagnoses Current Active Problems: Current Active and Chronic Problems (Last Reviewed 05/04/18 @ 09:[address] Laron Bacon MD) Acute on chronic renal failure (Chronic) Swelling of both lower extremities (Acute) Hyperkalemia (Acute) Dyspnea (Acute) Chronic kidney disease, stage III (moderate) (Chronic) You will use the following diet at home:: Calorie/Carbohydrate Controlled (specify 1200, 1400, etc), Renal (restricted protein/sodium) Your food should be the consistency of: Regular Your liquids should be the consistency of: Regular/Thin Discharge Activity: Return to Normal Activity Call your doctor if you observe: Fever of 101 or Higher, Shortness of breath, Dizziness, Fainting spells, Swelling in the ankles, Chest pain, Increased palpitations (irregular heartbeat) Additional Instructions: I held all of your blood pressure medications that you were taking because of the dialysis and your blood pressure was below 120 systolic while here. Follow- up with your PCP in 3 to 5 days for monitoring as well as with nephrology as an outpatient. Allergies/Adverse Reactions: Allergies pioglitazone [From Actos] Allergy (Verified 05/18/19 09:24) fatigue simvastatin [From Zocor] Allergy (Verified 05/18/19 09:24) myalgia sitagliptin [From Januvia] Allergy (Verified 05/18/19 09:24) unknown Medications to take at Discharge aspirin 81 mg tablet,delayed release 81 mg PO QDAY 05/12/17 glipizide 10 mg tablet 10 mg PO BID tab 05/18/19 Insulin Glargine [Lantus SoloStar Pen] 30 units SC DINNER 04/18/20 Cholecalciferol (VIT D3) [Vitamin D3] 5,000 unit PO DAILY #30 tab 05/02/20 The following prescriptions were given: Cholecalciferol (VIT D3) [Vitamin D3] 5,000 unit PO DAILY #30 tab Transmission Status: Pending to [facility] Mail Delivery Primary Care Physician: Jean Yan MD [Primary Care Provider] - Please follow up with your Primary Care Physician in: 3-5 days Test Results: Test results from this visit will be discussed in further detail at your follow- up appointment, if applicable.
[2020-05-02] MEDS: Ceftriaxone 1 GM/50 ML BAG IV (11:00)
[2020-05-02 11:35] LABS: Bedside Glucose 194 mg/dL (70-110)
--- NOTE | 2020-05-02 11:49 | PHA.DC.MR ---
Pharmacy Service has performed discharge medication reconciliation for this patient. The patient's discharge medication list was reviewed for discrepancies and discrepancies were resolved. Home Medications aspirin 81 mg tablet,delayed release 81 mg PO QDAY 05/12/17 glipizide 10 mg tablet 10 mg PO BID tab 05/18/19 Insulin Glargine [Lantus SoloStar Pen] 30 units SC DINNER 04/18/20 Cholecalciferol (VIT D3) [Vitamin D3] 5,000 unit PO DAILY #30 tab 05/02/20
[2020-05-02] MEDS: Insulin Lispro 100 UNIT/ML INSULN.PEN SC (12:06)
--- NOTE | 2020-05-02 13:33 | CASEMGMT ---
Santos at [facility] updated that pt will be going home now and will be there for OP treatment tomorrow, voice understanding at this time. Ion HALL CM
--- NOTE | 2020-05-02 19:57 | PCM.DC.SUM ---
Discharge Date and Diagnosis - Problem List Patient Problems: Active and Suspected Problems (Last Reviewed 05/04/18 @ 09:[address] Laron Bacon MD) Swelling of both lower extremities (Acute) Hyperkalemia (Acute) Dyspnea (Acute) Date of Admission: 04/18/20 Date of Discharge: 05/02/20 - Primary Discharge Diagnosis Acute Problems: Active Problems (Last Reviewed 05/04/18 @ 09:[address] Laron Bacon MD) Swelling of both lower extremities (Acute) Hyperkalemia (Acute) Dyspnea (Acute) - Secondary Discharge Diagnosis Chronic Problems: Chronic Problems (Last Reviewed 05/04/18 @ 09:[address] 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 Small left renal cyst. Electronically Signed: Abhijeet Moya MD at 20:36 EST , Service support , Abdomen/Pelvis CT 04/20/20 10:35 IMPRESSION: 1. Left renal mild hydronephrosis and ureteral dilatation with perinephric stranding concerning for underlying pyelonephritis in the appropriate clinical setting. No definitive ureteral stone is evident. There is compounding chronic bilateral echogenic stranding. Ill-defined hypodensity of the left kidney is also noted likely consistent with cysts though too small to fully characterize. 2. No evidence of pericardial effusion or large intra-abdominal ascites. Electronically Signed: Javan Park DO at 11:46 EST , Service support , Chest CT 04/20/20 10:35 IMPRESSION: 1. Chronic appearing right greater than left peripheral interstitial markings with peripheral areas of likely scarring changes with likely right main fissure 7 mm chronic appearing nodule adjacent to the pleural based scarring is noted. Recommend follow-up imaging in 6-12 months to document stability. Otherwise no evidence of acute focal airspace disease or acute process. Electronically Signed: Javan Park DO at 11:51 EST , Service support , Chest X-Ray 04/20/20 10:35 IMPRESSION: Cardiomegaly with low volume inspiration is unchanged. Insertion of dialysis catheter with no complications. Electronically Signed: Ronnell Srivastava MD at 12:11 EST , Service support , Abdomen CT 04/24/20 10:51 IMPRESSION: Stable bilateral perinephric stranding worse on the left side with severe left hydronephrosis and hydroureter down to the insertion into the left side of bladder. There is diffuse bladder wall thickening although the bladder is empty. A CHAMORRO catheter is seen within the urinary bladder. Electronically Signed: Kareem Yao, at 14:27 EST , Service support , Chest X-Ray 05/01/20 08:20 IMPRESSION: The tip of the right hemodialysis catheter is at the junction of the superior vena cava and right atrium. Minimal increased linear markings at the left lung base suggestive of atelectasis. Electronically Signed: Kareem Yao, at 9:32 EST , Service support , Date of Procedure: 05/01/20 Pre-Operative Diagnosis: Acute on chronic kidney disease Post-Operative Diagnosis: Same Surgery/Procedure Performed:: Placement of right IJ tunneled dialysis catheter. Use of ultrasound. Use of fluoroscopy Type of Anesthesia:: Local MAC Anesthesiologist: Lauro Cat Special Medications: Patient on Rocephin continuously IV on the floor Estimated Blood Loss (mL): < 10 cc Fluids Replaced: 200 cc Echo: Interpretation Summary Normal LV size. Left ventricular systolic function is lower limits of normal. The estimated ejection fraction is 53 %. The left atrium is moderately enlarged. Stage 2 diastolic dysfunction. Unable to estimate RV systolic pressure due to inadequate jet, pulmonary artery pressure probably normal. Compared to previous study, the left ventricular systolic function is the same.. Consults: General Surgery ID Nephrology Urology Cardiology Procedures: Central line placement, Dialysis Summary of Care Provided: Per HPI: The patient is a 84 year old M with a PMH as outlined who was at the ED on 04/18/2020 with a complaint of generalized edema. Patient states he is noticed that his legs have been swollen for several days and was also short of breath. He said he could not lay flat and lay on his side. He denied any PND. He states he is making urine and he has not noticed any decrease in quantity of his urine. He denies any chest pain or pressure, palpitations, dizziness, nausea vomiting or diarrhea. He denied any fever or chills. Review of systems otherwise negative. Denies any previous history of heart disease or heart failure. In the ED, vitals show temperature of 91.1 with blood pressure of 137/70, pulse rate of 83 respiratory rate of 21. He was saturating at 95% on room air. Chemistry showed sodium of 136 with potassium of 5.2, bicarb of 18 and anion gap of 9. Creatinine was 5.71. BNP was 306.8 and ALP was 169. Troopnin was not checked. Chemistry showed hemoglobin of 12 with WBC of 12.8 and platelets of 153. X-ray showed pulmonary congestion and mild atelectasis and EKG showed no acute ST changes. He has been admitted to be managed for KITTY on CKD, and acute heart failure of unknown EF. Hospital Course: 1. Acute diastolic CHF/bradycardia/HTN -Echo with an EF of 53% and stage II diastolic dysfunction with no wall motion abnormalities -Troponins were negative x3 -Appreciate cardiology input, continue with 1500 cc fluid restriction -Continue with dialysis -We will discontinue all his blood pressure medication secondary to lower than his normal blood pressure. This is likely secondary to his dialysis and has been receiving. I would recommend that he follow-up as an outpatient with nephrology and his primary care doctor, if necessary to adjust his blood pressure medications. -I discussed with him the possibility for discharge today. He expressed understanding the risk and benefits of going home. I had discussed with him the potential benefit of going to a long-term facility however he refused and decided to go home 2. Acute renal failure on CKD 3 with anasarca -Appreciate nephrology assistance -He received a tunneled catheter yesterday. His dialysis sessions will be Tuesday, , Tuesday. 3. Left pyelonephritis -WBC normalized -ID and urology following -He completed almost 2 weeks of Rocephin and blood cultures remain negative. The E. coli causing the pyelonephritis was pansensitive 4. DM 2 -Blood sugars are stable continue with insulin -Accu-Cheks AC at bedtime Patient Problems: Active and Suspected Problems (Last Reviewed 05/04/18 @ 09:[address] Laron Bacon MD) Swelling of both lower extremities (Acute) Hyperkalemia (Acute) Dyspnea (Acute) - Physical Exam Vitals/I&O's: Vital Signs Temp Pulse Resp BP Pulse Ox 98.5 F 55 L 16 115/51 L 96 05/02/20 09:15 05/02/20 11:00 05/02/20 09:15 05/02/20 09:15 05/02/20 09:15 Oxygen Flow Rate (L/min) 3 Oxygen Delivery Method Room Air Weight: 234 lb 9.149 oz Body Mass Index (BMI) 33.6 Intake and Output for Last 24 Hours 04/30/20 05/01/20 05/02/20 23:59 23:59 23:59 Intake Total 150 / 270 530 / 530 780 / 780 Output Total 0 / 0 2800 / 2800 0 / 0 Balance 150 / 270 -2270 / -2270 780 / 780 General: Alert, Oriented x3, Cooperative, No apparent distress HEENT: Atraumatic, PERRLA, EOMI, Normocephalic Oral: Moist Mucosa Neck: Supple, No JVD Lungs: Clear to auscultation, Normal air movement, No rhonchi, No wheeze, No rales, Diminished Cardiovascular: Regular rate, Regular Rhythm, Normal S1, Normal S2, No murmurs Abdomen: Soft, Non Tender, Non-Distended, No Hepato-splenomegaly Extremities: Capillary Refill Less than 3 Seconds, Edema - 1+ pitting bilateral Skin: No breakdown Neurological: Neuro grossly intact, Sensory exam intact to light touch and pain Psych/Mental Status: Normal Affect, Appropriate Laboratory Results 05/01/20 22:06: POC Glucose 264 H 05/02/20 06:49: POC Glucose 126 H 05/02/20 11:04: POC Glucose 194 H Discharge Activity: Return to Normal Activity Call your doctor if you observe: Fever of 101 or Higher, Shortness of breath, Dizziness, Fainting spells, Swelling in the ankles, Chest pain, Increased palpitations (irregular heartbeat) Home Medications: Medications to take at Discharge aspirin 81 mg tablet,delayed release 81 mg PO QDAY 05/12/17 glipizide 10 mg tablet 10 mg PO BID tab 05/18/19 Insulin Glargine [Lantus SoloStar Pen] 30 units SC DINNER 04/18/20 Cholecalciferol (VIT D3) [Vitamin D3] 5,000 unit PO DAILY #30 tab 05/02/20 Following Prescriptions Were Given to Patient: Cholecalciferol (VIT D3) [Vitamin D3] 5,000 unit PO DAILY #30 tab Transmission Status: Received by [facility] Mail Delivery Primary Care Physician: Jean Yan MD [Primary Care Provider] - Please follow up with your Primary Care Physician in: 3-5 days Please Follow Up With: Jean Yan MD Disposition: Home Minutes spent on discharge:: 35 Patient Condition:: Stable Medical Necessity - Tobacco Use Smoking Status: Never smoker Tobacco Use: Non-smoker Meaningful Use Info Meaningful Use Diagnoses (Choose all that apply): None applicable Inpatient E&M: 93127 Disch Hosp
--- NOTE | 2020-05-05 14:43 | CASEMGMT ---
ISAB[facility] CM DISCHARGE PHONE CALL DC DATE: 05/02/2020 DC DISPOSITION: Home with outpt dialysis DC DIAGNOSIS: Swelling of both lower extremities, hyperkalemia, dypsnea Attempted call to phone. no answer. Maye ROBLESN RN ACM
== END 2020-05-02 13:36 | disposition home or self-care (01) | DRG 673 ==
LOC: ED 12:22 → PCU 12:42 → MS2 15:02 → PCU 04-19 09:31
PROVIDERS: Hospitalist; Internal Medicine Infectious Disease; Internal Medicine Nephrology; Surgery; Admitting Provider Student in an Organized Health Care Education/Training Program; Emergency Provider Physician Assistant; PCP Family Medicine; Visit Provider Family Medicine
PROC: 0JH60XZ Insertion of Tunneled Vascular Access Device into Chest Subcutaneous Tissue and Fascia, Open Approach (ICD-10-PCS; principal; 2020-05-01 07:15)
DX: N17.9 Acute kidney failure, unspecified (principal); I50.31 Acute diastolic (congestive) heart failure; E87.2 Acidosis; I13.0 Hypertensive heart and chronic kidney disease with heart failure and stage 1 through stage 4 chronic kidney disease, or unspecified chronic kidney disease; N18.30 Chronic kidney disease, stage 3 unspecified; E11.22 Type 2 diabetes mellitus with diabetic chronic kidney disease; N13.6 Pyonephrosis; E87.5 Hyperkalemia; Z79.4 Long term (current) use of insulin; Z79.899 Other long term (current) drug therapy; I44.7 Left bundle-branch block, unspecified; E78.5 Hyperlipidemia, unspecified; B96.20 Unspecified Escherichia coli [E. coli] as the cause of diseases classified elsewhere; D72.829 Elevated white blood cell count, unspecified; R00.1 Bradycardia, unspecified; Z23 Encounter for immunization
CPT/HCPCS: 36415; 71045; 71250; 74176; 76000; 76770; 80048; 80053; 81001; 82570; 82962; 83880; 84156; 84439; 84443; 84484; 84540; 85025; 85027; 86704; 86706; 87040; 87077; 87086; 87088; 87186; 87340; 87426; 87635; 90937; 93005; 93306; 97110; 97116; 97162; 97165; 97530; 97535; 97802; 97803; 99285; G0008; J7030; J7040; J7050; Q9957; 90686; A4216; C1750; C1752; G0257; J1940; J2405; U0002

== ENCOUNTER → 2020-06-18 10:24 | Outpatient (CLI) | payer MEDICARE, SELFPAY | PROVIDERS: PCP Family Medicine; Referring Provider Internal Medicine Cardiovascular Disease; Visit Provider Internal Medicine Cardiovascular Disease | DX: R94.31 Abnormal electrocardiogram [ECG] [EKG] (principal); E78.5 Hyperlipidemia, unspecified; E87.5 Hyperkalemia; I44.1 Atrioventricular block, second degree; I44.7 Left bundle-branch block, unspecified; M79.89 Other specified soft tissue disorders; N17.9 Acute kidney failure, unspecified; R06.00 Dyspnea, unspecified; I12.9 Hypertensive chronic kidney disease with stage 1 through stage 4 chronic kidney disease, or unspecified chronic kidney disease; N18.30 Chronic kidney disease, stage 3 unspecified; Z79.899 Other long term (current) drug therapy | CPT/HCPCS: 93225; 93226 ==

== ENCOUNTER → 2020-08-27 09:55 | Outpatient (CLI) | payer MEDICARE, SELFPAY ==
--- NOTE | 2020-08-27 09:59 | VDUE_ITS ---
Reason For Study: Pre op Right Arm Left Arm Right Cephalic Vein at the wrist measures Left Cephalic Vein at the wrist measures 0.21 x 0.22 cm. 0.29 x 0.30 cm. Right Cephalic Vein in the forearm measures Left Cephalic Vein in the forearm measures 0.24 x 0.24 cm. 0.34 x 0.30 cm. Right Cephalic Vein below antecub measures Left Cephalic Vein below antecub measures 0.26 x 0.26 cm. 0.33 x 0.32 cm. Branch below antecube 0.17 x 0.17 cm. Left Cephalic Vein above antecub measures Branch above antecube 0.21 x 0.23 cm. 0.36 x 0.37 cm. Right Cephalic Vein above antecub measures Left Cephalic Vein at mid bicep measures 0.48 x 0.46 cm. 0.37 x 0.35 cm. Right Cephalic Vein mid bicep measures 0.40 Branch at mid bicep 0.21 x 0.21 cm. x 0.40 cm. Left Cephalic Vein at the shoulder measures Right Cephalic Vein at the shoulder measures 0.33 x 0.34 cm. 0.37 x 0.40 cm. Basilic vein at origin measures 0.43 x 0.45 Right Basilic Vein at the origin measures cm. 0.77 x 0.83 cm. Basilic vein at bicep measures 0.49 x 0.47 Right Basilic Vein mid bicep measures 0.49 x cm. 0.50 cm. Basilic vein above antecub measures 0.54 x Right Basilic Vein above antecub measures 0.53 cm. 0.41 x 0.42 cm. Left Brachial artery measures 0.50 x 0.50 cm Right Brachial artery measures 0.53 x 0.51 with a velocity of 80.3 cm/sec. cm with a velocity of 88.2 cm/sec. Left Radial artery measures 0.23 x 0.23 cm Right Radial artery measures 0.22 x 0.22 cm with a velocity of 73.8 cm/sec. with a velocity of 77.7 cm/sec. VL/Saphenous Vein Mapping, Bilat Interpretation Summary Patent, compressible bilateral cephalic and basilic veins with dimensions as no henry. Normal diameter and flow bilateral radial and brachial arteries. Ordering Physician: Randal Macias Referring Physician: Umang Yan Performed By: Anne-Marie Monzon RVT ?
== END ==
PROVIDERS: PCP Family Medicine; Referring Provider Surgery; Visit Provider Surgery
DX: Z01.818 Encounter for other preprocedural examination (principal); N18.6 End stage renal disease
CPT/HCPCS: 93970; 93985

== ENCOUNTER 2020-08-28 11:06 | Emergency (ER) | payer MEDICARE, SELFPAY ==
[2020-08-28] VITALS (11 sets, daily range): BP systolic 118–176; BP diastolic 48–91; PULSE 41–48; RESP 16–17; TEMP 36–36.8; O2SAT 92–99; BMI 33.4; BMI 32.5
--- NOTE | 2020-08-28 11:25 | EKG12_ITS ---
Test Reason : PRE-OP Blood Pressure : / mmHG Vent. Rate : 040 BPM Atrial Rate : 078 BPM P-R Int : 324 ms QRS Dur : 120 ms QT Int : 506 ms P-R-T Axes : 039 -09 079 degrees QTc Int : 412 ms Sinus rhythm with 2nd degree A-V block with 2:1 A-V conduction Left ventricular hypertrophy with QRS widening and repolarization abnormality Abnormal ECG Confirmed by ADRI AVILA, PALMA ([id number]), video tape editor BYRON MACKAY ([id number]) on 09/01/2020 2:12:01 PM Referred By: SAM Confirmed By:PALMA RUSH MD
--- NOTE | 2020-08-28 11:34 | ED.DCSUM_ITS ---
- ER Visit Summary Date of Service: 08/28/20 Chief Complaint: [Need for new dialysis catheter and dialysis access] History of Present Illness: The patient is a 85 M [presents to the emergency department for evaluation of his dialysis catheter which has been an issue for several weeks. Patient states that he was at dialysis today and was only able to get about an hour in before it stopped working. Patient states that at times it is positional and will intermittently stop functioning. I was made aware that would see patient for placement of new dialysis catheter. Patient denies any fever or recent illness. He denies chest pain or abdominal pain. Patient has history of diabetes, hypertension, and history of chronic renal failure. Patient is currently being evaluated for a fistula.] Patient has been on dialysis since April 2020 Physical Examination: [HEENT-PERRLA, EOMI. Cranial nerves II through XII grossly intact. TMs clear. Mucous membranes moist. No adenopathy. Cardiovascular-regular and bradycardic. No murmurs auscultated. Chest wall-patient has a dialysis catheter noted in the right chest wall. Lungs-clear to auscultation, chest wall stable without crepitus or subcu emphysema Abdomen-normoactive bowel sounds, soft, nontender, no rebound or rigidity, no peritoneal signs. Extremities-intact ?4, normal range of motion, normal pulses, atraumatic] Test Results: [EKG obtained arrival shows sinus bradycardia with a ventricular rate of 41 bpm with a first-degree AV block and left ventricular hypertrophy noted. CBC with differential showed a white count 7.6, hemoglobin 12, hematocrit 39, plates 185. Chemistries unremarkable. BUN 53 and creatinine 3.43. INR was 1.2 and PTT was 28.7. Rapid COVID-19 test ordered and pending] Emergency Department Course and Treatment: [IV line established on arrival.] Treatment Plan: [Patient will be sent to the OR for emergent placement of dialysis catheter] Disposition: [Admit to operating room] Impression: [Dialysis catheter replacement] This note was generated with [employer] dictation software. It may contain incorrect words, spelling, and punctuation that were not noted in review of the chart prior to signing ED Disposition - Plan for ED Patient: Referrals: Jean Yan MD [Primary Care Provider] -
[2020-08-28 11:46] LABS: Absolute Lymphocyte Count 1.46 X10^3/uL (0.83-4.51); Absolute Neutrophil Count 5.1 X10^3/uL (2.0-7.7); Basophil# 0.04 X10^3/uL; Basophil% 0.5 % (0-1); Eosinophil# 0.21 X10^3/uL; Eosinophils% 2.8 % (0-5); Hematocrit 38.8 % (40-54); Hemoglobin 12.3 g/dL (13.0-16.5); Lymphocyte # 1.46 X10^3/ul (4.0); Lymphocyte % 19.2 % (19-41); Mean Corp Hgb Conc 31.7 g/dL (32-36); Mean Corpuscular Hgb 29.7 pg (27.0-32.0); Mean Corpuscular Volume 93.7 fL (80-94); Mean Platelet Vol. 11.2 fl (6.2-12.0); Monocyte# 0.75 X10^3/uL; Monocyte% 9.9 % (0-10); NRBC Flagged by Analyzer 0 % (0-5); Neutrophil # 5.09 X10^3/uL (2.7-7.7); Neutrophil % 67.1 % (47-70); Platelet Count 185 K/mm3 (150-450); RBC Distribution Width CV 13.2 % (11.6-14.6); RBC Distribution Width SD 44.8 fl (35.1-43.9); Red Blood Count 4.14 M/mm3 (4.6-6.2); White Blood Count 7.6 K/mm3 (4.4-11.0)
[2020-08-28 11:56] LABS: International Normalized Ratio 1.2; Partial Thromboplast Time 28.7 Seconds (24.1-36.2); Prothrombin Time (Protime)PT. 14.1 SECONDS (11.7-14.9)
[2020-08-28 11:59] LABS: Anion Gap 5 (5-15); BUN 53 mg/dL (7-18); BUN/Creat Ratio 15.5 RATIO (10-20); Calcium,Total 8.8 mg/dL (8.5-10.1); Chloride 102 mmol/L (98-107); Creatinine, Serum 3.43 mg/dL (0.70-1.30); EST Glomerular Filtration Rate 18 mL/min (>60); Est Glom Filt Rate - Afr Amer 22 mL/min (>60); Estimated Creatinine Clearance 15.79 ml/min; Glucose 202 mg/dL (74-106); Potassium 4.5 mmol/L (3.5-5.1); Sodium Level 137 mmol/L (136-145)
--- NOTE | 2020-08-28 12:11 | PCM.HP.STD ---
Problem List (1) Chronic kidney disease, stage V requiring chronic dialysis Status: Acute History of Present Illness Date of Admission: 08/28/20 Chief Complaint: Right chest tunneled dialysis catheter malfunction The patient is a 85 year old M who presents to the ED with malfunctioning right chest tunneled dialysis catheter. Patient states over the last 2-3 weeks dialysis has noted a gradual decline in function of the chest catheter. He has had to stop his dialysis treatments numerous times early due to the catheter stopped working. He notes on Tuesday the dialysis center placed cathflo in the chest catheter and did not further attempt to dialyze him. He states he returned to dialysis today and was dialyzing for 1 hour and then the catheter stopped working. Patient denies pain/discomfort at the catheter site. He denies cardiac history. He denies pacemaker/defibrillator stroke, blood clots. He is maintained on a daily 81 mg aspirin. He is scheduled for a consultation for fistula placement with Dr. Macias on 09/12. Patient had right tunneled dialysis catheter placed during a hospitalization in April by Dr. Franklin. 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) Left bundle-branch block (Chronic) Essential (primary) hypertension (Chronic) HLD (hyperlipidemia) (Chronic) Type 2 diabetes mellitus (Chronic) Medical History: Medical History (Last Reviewed 08/28/20 @ 12:23 by LEANDRO DiazC) Paroxysmal atrial fibrillation (Chronic) I48.0 Chronic diastolic (congestive) heart failure (Chronic) Onset Date: 04/18/20 I50.32 Sinus bradycardia (Chronic) R00.1 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 (Chronic) I44.1 Left bundle-branch block (Chronic) I44.7 Essential (primary) hypertension (Chronic) I10 HLD (hyperlipidemia) (Chronic) E78.5 Type 2 diabetes mellitus (Chronic) E11.9 Chronic kidney disease, stage III (moderate) N18.3 Hyperkalemia (Resolved) E87.5 Swelling of both lower extremities (Resolved) M79.89 Abnormal electrocardiogram (Inactive) R94.31 Allergies pioglitazone [From Actos] Allergy (Verified 08/28/20 11:07) fatigue simvastatin [From Zocor] Allergy (Verified 08/28/20 11:07) myalgia sitagliptin [From Januvia] Allergy (Verified 08/28/20 11:07) unknown Home Medications: Ambulatory Orders Medication Instructions Recorded glipizide 10 mg tablet 10 mg PO BID tab 05/18/19 Insulin Glargine [Lantus SoloStar 26 units SC DINNER 04/18/20 Pen] Cholecalciferol (VIT D3) [Vitamin 5,000 unit PO DAILY #30 tab 05/02/20 D3] aspirin 81 mg tablet,delayed 81 mg PO DAILY 07/01/20 release Surgical History: Surgical History (Last Reviewed 08/28/20 @ 12:23 by KRISTOFER Diaz-C) History of appendectomy Z98.890, Z90.49 History of inguinal hernia repair Z98.890, Z87.19 1970s Surgical History: no surgical history Psychiatric History: No pertinent psych hx Lives: Spouse/ Significant Other Smoking Status: Former smoker - *Family History Maternal Family History: Family History (Last Reviewed 08/28/20 @ 12:23 by LEANDRO DiazC) Mother Hypertension Father Diabetes History Items: No pertinent history Paternal Family History: Family History (Last Reviewed 08/28/20 @ 12:23 by LEANDRO DiazC) Mother Hypertension Father Diabetes Review of Systems Constitutional: Denies: Chills, Fever, Weight Change HEENT: Denies: Head Aches, Sinus Congestion, Sinus Drainage Cardiovascular: Denies: Chest Pain, Palpitations Respiratory: Denies: Cough, Shortness of breath at rest, Sputum production Gastrointestinal: Denies: Abdominal Pain, Nausea, Vomiting Genitourinary: Denies: Dysuria Musculoskeletal: Denies: Joint Pain, Joint Tenderness Skin: Denies: Rash, Wounds Neurological: Denies: Numbness, Tingling, Focal weakness Psychiatric: Denies: Anxiety, Depression, Homicidal Ideations, Suicidal Ideations Hematologic/ Lymphatic: Reports: Anemia. Denies: Easy Bruising, Easy Bleeding VTE Information - Inpt Only VTE Present on Admission: Yes VTE Mechan Device Prophylaxis: SCD's Patient Problems: Active and Suspected Problems (Last Reviewed 08/28/20 @ 12:23 by Catalina MINER PA-C) Chronic kidney disease, stage V requiring chronic dialysis (Acute) - Physical Exam Vitals/I&O's: Vital Signs Temp Pulse Resp BP Pulse Ox 96.8 F L 41 L 17 147/64 H 97 08/28/20 11:08 08/28/20 11:10 08/28/20 11:10 08/28/20 11:10 08/28/20 11:10 Oxygen Delivery Method Room Air Weight: 220 lb Body Mass Index (BMI) 33.4 General: Alert, Oriented x3, Cooperative HEENT: Atraumatic, PERRLA, EOMI, Normocephalic Neck: Supple, No JVD, Negative Carotid Bruits, - - right chest tunneled dialysis catheter, non-infected Lungs: Clear to auscultation, Normal air movement Cardiovascular: Bradycardic Abdomen: Bowel Sounds Present, Soft, Non Tender Extremities: No edema, Capillary Refill Less than 3 Seconds Skin: No rashes, No breakdown Musculoskeletal: No Tenderness to Palpation of Joints or Extremities Neurological: Neuro grossly intact Psych/Mental Status: Normal Affect, Appropriate Microbiology Past 72 Hours 08/28/20 11:34 Mucosa - Nose SARS-CoV-2 Antigen (Rapid) - Final Laboratory Results 08/28/20 11:35: WBC 7.6, RBC 4.14 L, Hgb 12.3 L, Hct 38.8 L, MCV 93.7, MCH 29.7, MCHC 31.7 L, RDW Std Deviation 44.8 H, RDW Coeff of Frances 13.2, Plt Count 185, MPV 11.2, Immature Gran % (Auto) 0.500, Neut % (Auto) 67.1, Lymph % (Auto) 19.2, [place] % (Auto) 9.9, Eos % (Auto) 2.8, Baso % (Auto) 0.5, Absolute Neuts (auto) 5.1, Absolute Lymphs (auto) 1.46, Nucleated RBC % 0 08/28/20 11:35: PT 14.1, INR 1.2, APTT 28.7 08/28/20 11:35: Sodium 137, Potassium 4.5, Chloride 102, Carbon Dioxide 30.0, Anion Gap 5, BUN 53 H, Creatinine 3.43 H, Estim Creat Clear Calc 15.79, Est GFR (MDRD) Af Amer 22 L, Est GFR (MDRD) Non-Af 18 L, BUN/Creatinine Ratio 15.5, Glucose 202 H, Calcium 8.8 Current Medications Cefazolin Sodium 2 gm/ Sodium (Chloride) 110 mls @ 150 mls/hr IV PREOP ONE Stop: 08/28/20 12:43 Assessment/Plan All Active Problems (Last Reviewed 08/28/20 @ 12:23 by Catalina MINER, PA-C) Chronic kidney disease, stage V requiring chronic dialysis (Acute) Acute on chronic renal failure (Resolved) Dyspnea (Resolved) Hyperkalemia (Resolved) Swelling of both lower extremities (Resolved) I am seeing this patient in conjunction with Dr. Kaur. He will independently evaluate this patient. Impression: Malfunctioning right tunneled chest catheter. In need of replacement catheter. Plan: Discussed patient with Dr. Kaur. Dr. Kaur will plan to perform a removal of the right chest tunneled dialysis catheter. Right possible left chest tunneled dialysis catheter placement. Procedure details, risks and benefits have been explained to the patient. Patient and his have had the opportunity to ask and have questions answered. Patient verbally understands and agrees with the plan. Post-op CXR will be obtained for placement. Patient will be discharged to home following the procedure. Thank you for allowing us to participate in this patient's care. OBSV E&M: [id number] Observ/hosp same date L1
[2020-08-28] MEDS: Cefazolin 2 GM in 0.9% Normal Saline 100 ML IV (15:51)
[2020-08-28] MEDS: Lidocaine 1% /Epi 1:100 (20ml) 20 ML Vial (16:10)
[2020-08-28] MEDS: Heparin 10,000 UNITS/10 ML Vial 10000 UNITS (16:30)
--- NOTE | 2020-08-28 16:58 | OP.PCM_ITS ---
Problem List (1) Peritoneal dialysis catheter dysfunction Status: Acute Qualifiers: Encounter type: initial encounter Qualified Code(s): T85.611A - Breakdown (mechanical) of intraperitoneal dialysis catheter, initial encounter Report of Operation Date of Procedure: 08/28/20 Pre-Operative Diagnosis: Nonworking right tunneled dialysis catheter. Chronic kidney disease on dialysis Post-Operative Diagnosis: Same Surgery/Procedure Performed:: 1. Removal of tunneled right chest dialysis catheter. 2. Placement of left chest tunneled dialysis catheter utilizing left IJ with ultrasound and fluoroscopy guidance. Description of Procedure: The patient was taken the operating room and the right chest and neck were prepped and draped in the usual sterile fashion. The prior catheter was prepped into the field. The area overlying the cuff was injected with local anesthetic. A counterincision was made over the cuff and the cuff was dissected free. The catheter was able to be removed. A Steri-Strip was placed over the counter incision and a bandage was placed over both the exit site and the counterincision. Patient tolerated this well with no bleeding. Next the left chest and neck were prepped in usual sterile fashion. Ultrasound was used to localize the left IJ. The skin overlying left IJ was injected with local anesthetic and a counterincision left chest was identified and marked and injected with local anesthetic. A scalpel was used to make a small incision overlying the IJ and then under ultrasound guidance a needle was used to access the left IJ. The guidewire was placed into the superior vena cava under fluoroscopic guidance without any resistance. The needle was removed from the guidewire and serial dilators and then the peel-away sheath were placed over the guidewire. The guidewire was removed. The catheter was then tunneled from the chest incision to the neck incision. The catheter was placed through the peel- away sheath and the peel-away sheath was removed. Good placement into the superior vena cava was confirmed using fluoroscopy. Both catheters were aspirated and flushed. Both kya and flushed easily. Each catheter was instilled with 1.9 cc of heparinized saline. Each of them were clamped and capped. The neck incision was closed with interrupted 3-0 Vicryl suture. The catheter was sutured to the skin using 3-0 nylon. Dressings were applied and patient was taken to PACU in stable condition. Grafts/Implants Used: Palindrome curved dialysis catheter - Admit VTE Documentation VTE Mechan Device Prophylaxis: SCD's
--- NOTE | 2020-08-28 17:00 | RAD_ITS ---
STUDY: X-RAY CHEST REASON FOR EXAM: Male, 85 years old. pacu TECHNIQUE: Frontal view of the chest COMPARISON: X-ray chest 05/01/2020 FINDINGS: There is a left chest tunneled catheter terminating at the cavoatrial junction. Left base atelectasis and/or small infiltrate is present. Lungs are otherwise clear. There are no pleural effusions. There is no pneumothorax. The heart is normal in size. The visualized osseous structures are within normal limits. RAD/CXR for Line Placement IMPRESSION: Left lung base atelectasis and/or small infiltrate. Otherwise, clear lungs. Left chest tunneled catheter placement terminating at the cavoatrial junction. Electronically Signed: Abhijeet Vieira MD at 17:32 EDT Tel , Service support ,
--- NOTE | 2020-08-28 17:03 | DCINST_ITS ---
Discharge Diet: No Restrictions - Pain medication may cause nausea. You should typically eat light foods as you take your pain medication. Discharge Activity: Return to Normal Activity Lifting Restrictions: 10 lbs for 1 weeks Call your doctor if your incision/area has: Continuous Slow Oozing, Sudden Increased Bleeding, Increased Pain/ Swelling, Increased Redness Call your doctor if you observe: Fever of 101 or Higher Remove Dressing in (days):: 3 Allergies/Adverse Reactions: Allergies pioglitazone [From Actos] Allergy (Verified 08/28/20 11:07) fatigue simvastatin [From Zocor] Allergy (Verified 08/28/20 11:07) myalgia sitagliptin [From Januvia] Allergy (Verified 08/28/20 11:07) unknown Medications to take at Discharge glipizide 10 mg tablet 10 mg PO BID tab 05/18/19 Insulin Glargine [Lantus SoloStar Pen] 26 units SC DINNER 04/18/20 Cholecalciferol (VIT D3) [Vitamin D3] 5,000 unit PO DAILY #30 tab 05/02/20 aspirin 81 mg tablet,delayed release 81 mg PO DAILY 07/01/20 Primary Care Physician: Jean Yan MD [Primary Care Provider] - Test Results: Test results from this visit will be discussed in further detail at your follow- up appointment, if applicable. Please Follow Up With: Randal Macias MD When: as scheduled
[2020-08-29 07:56] LABS: Bedside Glucose 207 mg/dL (70-110)
== END 2020-08-28 17:45 | disposition home or self-care (01) ==
LOC: ED 11:48
PROVIDERS: Emergency Provider Emergency Medicine; PCP Family Medicine; Visit Provider Surgery
PROC: (CPT 36558; principal; 2020-08-28 16:15)
DX: I13.2 Hypertensive heart and chronic kidney disease with heart failure and with stage 5 chronic kidney disease, or end stage renal disease (principal); E11.22 Type 2 diabetes mellitus with diabetic chronic kidney disease; N18.5 Chronic kidney disease, stage 5; I50.32 Chronic diastolic (congestive) heart failure; Z99.2 Dependence on renal dialysis; Z79.4 Long term (current) use of insulin; Z79.899 Other long term (current) drug therapy; Z87.891 Personal history of nicotine dependence
CPT/HCPCS: 36558; 36590; 71045; 76000; 80048; 82962; 85025; 85610; 85730; 87426; 93005; 99282; J7030; J7040; A4216

== ENCOUNTER 2020-10-01 07:22 | Day surgery (SDC) | payer MEDICARE, SELFPAY ==
[2020-09-12 13:07] VITALS: BMI 33.4
--- NOTE | 2020-09-29 10:21 | EKG12_ITS ---
Test Reason : PRE OP Blood Pressure : / mmHG Vent. Rate : 045 BPM Atrial Rate : 045 BPM P-R Int : 350 ms QRS Dur : 118 ms QT Int : 510 ms P-R-T Axes : 058 006 087 degrees QTc Int : 441 ms Sinus bradycardia with 1st degree A-V block Incomplete left bundle branch block Borderline ECG Confirmed by ADRI AVILA, PALMA ([id number]), industrial editor GEE DUNCAN ([id number]) on 09/30/2020 8:36:21 AM Referred By: Randal Macias Confirmed By:PALMA RUSH MD
[2020-09-29 11:22] LABS: Hematocrit 39.4 % (40-54); Hemoglobin 12.7 g/dL (13.0-16.5); Mean Corp Hgb Conc 32.2 g/dL (32-36); Mean Corpuscular Hgb 30.2 pg (27.0-32.0); Mean Corpuscular Volume 93.8 fL (80-94); Mean Platelet Vol. 11.6 fl (6.2-12.0); Platelet Count 212 K/mm3 (150-450); RBC Distribution Width CV 12.9 % (11.6-14.6); RBC Distribution Width SD 44.1 fl (35.1-43.9); White Blood Count 8.2 K/mm3 (4.4-11.0)
[2020-09-29 11:48] LABS: Anion Gap 10 (5-15); BUN 57 mg/dL (7-18); BUN/Creat Ratio 12.1 RATIO (10-20); Calcium,Total 8.8 mg/dL (8.5-10.1); Chloride 95 mmol/L (98-107); Creatinine, Serum 4.72 mg/dL (0.70-1.30); EST Glomerular Filtration Rate 13 mL/min (>60); Est Glom Filt Rate - Afr Amer 15 mL/min (>60); Glucose 244 mg/dL (74-106); Potassium 4.1 mmol/L (3.5-5.1); Sodium Level 136 mmol/L (136-145)
[2020-10-01 07:45] VITALS: BP 155/66; PULSE 44; RESP 18; TEMP 36.8; O2SAT 100; BMI 33.0
[2020-10-01 08:25] LABS: Bedside Glucose 193 mg/dL (70-110)
--- NOTE | 2020-10-01 09:19 | PCM.HP.BLA ---
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: No Is patient in pain?: No Allergies pioglitazone [From Actos] Allergy (Verified 09/12/20 13:09) fatigue simvastatin [From Zocor] Allergy (Verified 09/12/20 13:09) myalgia sitagliptin [From Januvia] Allergy (Verified 09/12/20 13:09) unknown Medications glipizide 10 mg tablet 10 mg PO BID tablet 05/18/19 [History Confirmed 09/12/20] Insulin Glargine [Lantus SoloStar Pen] 26 units SC DINNER 04/18/20 [History Confirmed 09/12/20] Cholecalciferol (VIT D3) [Vitamin D3] 5,000 unit PO DAILY #30 tablet 05/02/20 [Rx Confirmed 09/12/20] aspirin 81 mg tablet,delayed release 81 mg PO DAILY 07/01/20 [History Confirmed 09/12/20] [facility] Medical History Paroxysmal atrial fibrillation (Chronic) Chronic diastolic (congestive) heart failure (Chronic 04/18/20) Sinus bradycardia (Chronic) 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 Randal Macias MD) Smoking Status: Former smoker alcohol intake: current substance use type: does not use caffeine: Yes what type of physical activity do you participate in: none seatbelt use: always do you feel safe at home: Yes HPI HPI HPI: PERLA LUBIN, is a 85 M who presents to the office today for surgical consultation regarding creation of arteriovenous hemodialysis fistula. Dr. Rudolph Kaur has assisted him initially with placement of a right internal jugular tunneled dialysis catheter with then conversion on August 28 to the left internal jugular tunneled dialysis catheter. The patient is right arm dominant. He has had bilateral upper extremity vein mapping as noted below. He has been a type II diabetic for approximately 19 years. Report of Operation Date of Procedure: 08/28/20 Pre-Operative Diagnosis: Nonworking right tunneled dialysis catheter. Chronic kidney disease on dialysis Post-Operative Diagnosis: Same Surgery/Procedure Performed:: 1. Removal of tunneled right chest dialysis catheter. 2. Placement of left chest tunneled dialysis catheter utilizing left IJ with ultrasound and fluoroscopy guidance. Saphenous Venous Mapping [facility] [address] [place] [address]. [place] [address] Saphenous Vein Mapping, Bilat 08/27/20 1013 MR#: [id number] Name: PERLA LUBIN [facility] #:[id number] : 1935 85From: Randal Macias MD Attending Dr: OVIDIO Luciotatus: REG CLI Ordering Dr: Randal Macias MDDate: 08/27/20 Location:CVSSex: Admitted: Reason For Study: Pre op Right Arm Left Arm Right Cephalic Vein at the wrist measures Left Cephalic Vein at the wrist measures 0.21 x 0.22 cm. 0.29 x 0.30 cm. Right Cephalic Vein in the forearm measures Left Cephalic Vein in the forearm measures 0.24 x 0.24 cm. 0.34 x 0.30 cm. Right Cephalic Vein below antecub measures Left Cephalic Vein below antecub measures 0.26 x 0.26 cm. 0.33 x 0.32 cm. Branch below antecube 0.17 x 0.17 cm. Left Cephalic Vein above antecub measures Branch above antecube 0.21 x 0.23 cm. 0.36 x 0.37 cm. Right Cephalic Vein above antecub measures Left Cephalic Vein at mid bicep measures 0.48 x 0.46 cm. 0.37 x 0.35 cm. Right Cephalic Vein mid bicep measures 0.40 Branch at mid bicep 0.21 x 0.21 cm. x 0.40 cm. Left Cephalic Vein at the shoulder measures Right Cephalic Vein at the shoulder measures 0.33 x 0.34 cm. 0.37 x 0.40 cm. Basilic vein at origin measures 0.43 x 0.45 Right Basilic Vein at the origin measures cm. 0.77 x 0.83 cm. Basilic vein at bicep measures 0.49 x 0.47 Right Basilic Vein mid bicep measures 0.49 x cm. 0.50 cm. Basilic vein above antecub measures 0.54 x Right Basilic Vein above antecub measures 0.53 cm. 0.41 x 0.42 cm. Left Brachial artery measures 0.50 x 0.50 cm Right Brachial artery measures 0.53 x 0.51 with a velocity of 80.3 cm/sec. cm with a velocity of 88.2 cm/sec. Left Radial artery measures 0.23 x 0.23 cm Right Radial artery measures 0.22 x 0.22 cm with a velocity of 73.8 cm/sec. with a velocity of 77.7 cm/sec. VL/Saphenous Vein Mapping, Bilat Interpretation Summary Patent, compressible bilateral cephalic and basilic veins with dimensions as noted. Normal diameter and flow bilateral radial and brachial arteries. Ordering Physician: Randal Macias Referring Physician: Umang Yan Performed By: Anne-Marie Monzon RVT ? 08/27/201815 Date Randal Macias MD HPI HPI HPI: PERLA LUBIN, is a 85 M who presents to the office today for ROS General General: No weight change, appetite, fatigue, colon cancer, breast cancer or weakness HEENT HEENT: No difficulty swallowing, eye injury, eye surgery, swollen glands or hoarseness Endo Endocrine: Yes diabetes mellitus; no thyroid disease, thyroid cancer, Hair loss, heat intolerance or cold intolerance Skin Skin: No rash or changing moles Breast Breast: No left breast lump, right breast lump, nipple discharge, breast pain, abnormal mammogram, abnormal US or breast enlargement Musc Musculoskeletal: Yes arthritis; no back problems, rheumatoid arthritis, gout or joint pain Cardio Cardiovascular: Yes heart disease, atrial fibrillation and high blood pressure; no murmur, pacemaker, heart attack, heart stent, palpitations, shortness of breat with exertion or chest pain Psych Psychiatric: No depression, anxiety or hearing voices Resp Respiratory: No shortness of breath, No sleep apnea, No cough, No COPD, No asthma, No emphysema, No wheezing Gastro Gastrointestinal: No abdominal pain, No nausea or vomiting, No diarrhea, No constipation, No blood in stool, No acid reflux, No hemorrhoids, No ulcers, No gallbladder problem, No black,tarry stools Asa Hematologic: No blood thinners, No blood disorders, No bleeding, No anemia, No blood clots Neuro Neurologic: Yes numbness, Yes tingling, No weakness Exam Const General: cooperative, comfortable, no acute distress Nutritional Appearance: overweight Orientation: alert, awake [facility] Head: normal to inspection Eyes General: appearance normal, both eyes and all related structures Chest Breast Palpation: No nipple discharge Resp Effort & Inspection: normal respiratory effort Other: Bibasilar dry rales Cardio Rate: regular rate Rhythm: regular rhythm Heart Sounds: no murmurs GI Other: Overweight, no hepatosplenomegaly Skin General: no rashes or lesions noted Neuro Cognition: normal cognition Extrem General: no calf tenderness Other: Mild bilateral extremity edema Left upper extremity has a visible cephalic vein at the forearm and wrist. On ultrasound inspection it appears to be patent and of adequate caliber. Left radial pulses 2+. Roderick test demonstrates good left ulnar flow Psych Affect: normal affect Assessment & Plan Problems 1. Chronic kidney disease, stage V requiring chronic dialysis N18.6; Z99.2 Plan I recommend to the patient a left forearm radiocephalic arteriovenous hemodialysis fistula creation. He is a long-term diabetic and the radial artery on palpation is somewhat disease. On duplex ultrasound it appears to be of appropriate caliber. I have discussed with him technique, benefit, risk, alternatives. No guarantees of success have been offered. He has had an opportunity to ask and have questions answered. He is comfortable with the plans and we will schedule and proceed as noted. I very much appreciate the kind opportunity of assisting with his surgical care. Copy: Dr. Umang Nielsen and Dr.Jayaprakas Artie Macias M.D., F.A.C.S. Coding Level of Care Code Off vis,new,level 3 Diagnoses Chronic kidney disease, stage V requiring chronic dialysis N18.6; Z99. I have re-examined the patient. There are no clinical changes since date of exam.
--- NOTE | 2020-10-01 09:19 | EX.PCM.DISCH ---
Discharge Instructions Procedure Fistula Diet Discharge Diet: Renal Diet Activity Discharge Activity: May Not Drive (for 2-3 days or while taking narcotic pain medications.), May Shower and May Take a Tub Bath (in 5 days.) Lifting Restrictions: 5 pounds Keep extremity elevated above heart level: - (Keep arm elevated above the heart level for 3 days.) Dressing / Incision Call your doctor if your incision/area has: Continuous Slow Oozing, Sudden Increased Bleeding (apply pressure and call your doctor.), Increased Pain/ Swelling, Increased Redness and Foul Smelling Discharge Call your doctor if you observe: Fever of 101 or Higher Suture Line Care: Avoid Pulling/Pushing and Avoid Pinching/Bending Cleanse incision/area with: Keep Dressing Clean & Dry Additional Dressing/Incision Instructions:: Change or remove dressing in one day. May protect with a gauze bandaid. Follow Up Care Please Follow Up With: Randal Macias MD When: Call [phone] to make an appointment for suture removal and follow up in 1 week. Test Results: Test results from this visit will be discussed in further detail at your follow-up appointment, if applicable. Discharge Plan Admission Attending Provider: Randal Macias Primary Care Provider: Jean Yan Discharge Orders/Prescriptions Prescriptions: No Action glipizide 10 mg tablet 10 mg PO BID RF: 0 insulin glargine 100 UNITS/ML insulin pen 26 units SC DINNER RF: 0 cholecalciferol (vitamin D3) 1,000 UNIT tablet 5,000 unit PO DAILY Qty: 30 RF: 0 aspirin [Adult Aspirin Regimen] 81 mg tablet,delayed release (DR/EC) 81 mg PO DAILY RF: 0
[2020-10-01] MEDS: Heparin Injection (Vial) 5,000 UNIT/ML VIAL 5000 UNIT (09:31)
[2020-10-01] MEDS: Lidocaine 1% (30 ml sdv) 30 ML Vial (09:31)
[2020-10-01] MEDS: Bupivacaine Mpf 0.5% 30 ML VIAL (09:31)
--- NOTE | 2020-10-01 10:59 | OP.PCM_ITS ---
Problems Associated Problem List Diagnoses (1) Chronic kidney disease, stage V requiring chronic dialysis: Report of Operation Date of Procedure: 10/01/20 Pre-Operative Diagnosis: Stage V chronic renal insufficiency in need of arteriovenous hemodialysis access Post-Operative Diagnosis: Same Surgery/Procedure Performed:: Left forearm radiocephalic arteriovenous hemodialysis fistula creation Description of Surgical Findings:: Timeout and informed consent was obtained. 85-year-old gentleman was taken the operating placed on the table underwent monitored anesthesia care. Ancef 2 g were given intravenously. The left upper extremity was sterilely prepped and draped. 1% lidocaine mixed 50-50 with 0.5% Marcaine was used as a local anesthetic. A total of 9 cc was used. Preoperat ively I used ultrasound to map the course of the cephalic vein. The radial artery is noted to be quite calcified. Local was instilled. An oblique incision was created. Sharp and blunt dissection was used to harvest the cephalic vein. It was inked marked. Then sharp and blunt dissection was used to elevate the left radial artery. After complete mobilization the patient received 9000 minutes of heparin intravenously. The vein was ligated distally with hemoclips. The vein was irrigated was appropriate size it was spatulated. Peripheral vascular clamps were placed on the radial artery a longitudinal arteriotomy was made with an 11 blade and extended with Aburto scissors. The artery was very calcific. I initially attempted to suture to it but found that not possible so I did a small endarterectomy of the calcific plaque right at the anastomotic area. I was then able to perform a end-to-side venous to arterial anastomosis with the spatulated vein. Prior to completion I used a 2 Solomon dilator and then a 2.5 Solomon dilator proximally through the very diseased calcific radial artery. I was able to get good inflow. The anastomosis was completed. A couple repair sutures of 7-0 Prolene were required. At the completion the vein appeared to have a good positional lie. It appeared to have good flow. Doppler was used to identify quite nice signals. Hemostasis was intact. The wound was closed with a deep layer of interrupted 3- 0 Vicryl. Skin edges proximal and running septic or 4 Monocryl. Steri-Strips Telfa OpSite dressing applied. Sponge and instrument and needle counts were reported to the surgeon to be correct. Specimens none. Drains none. Blood loss 100 cc. The patient had a viable hand at the completion. Hand was pink. It was a good ulnar signal. Randal Macias M.D., F.A.C.S. Type of Anesthesia: Local and MAC Anesthesiologist: Wali Bui
[2020-10-01] MEDS: Bacitracin 500 UNITS/GM PACKET (11:02)
[2020-10-01 11:10] VITALS: BP 132/58; BP 155/66; PULSE 48; RESP 16; TEMP 36.1; O2SAT 97
[2020-10-01 11:15] VITALS: BP 128/59; BP 155/66; PULSE 48; RESP 16; O2SAT 96
[2020-10-01 11:20] VITALS: BP 128/62; BP 155/66; PULSE 47; RESP 16; O2SAT 98
[2020-10-01 11:25] VITALS: BP 133/58; BP 155/66; PULSE 46; RESP 16; TEMP 35.7; O2SAT 94
[2020-10-01 12:16] VITALS: BP 143/53; BP 155/66; PULSE 47; RESP 16; TEMP 36; O2SAT 100
== END 2020-10-01 12:22 | disposition home or self-care (01) ==
LOC: SDC 07:22 → AC 07:23
PROVIDERS: PCP Family Medicine; Referring Provider Surgery; Visit Provider Surgery
PROC: (CPT 36821; principal; 2020-10-01 09:15)
DX: I13.2 Hypertensive heart and chronic kidney disease with heart failure and with stage 5 chronic kidney disease, or end stage renal disease (principal); E11.22 Type 2 diabetes mellitus with diabetic chronic kidney disease; N18.5 Chronic kidney disease, stage 5; I50.32 Chronic diastolic (congestive) heart failure; E78.5 Hyperlipidemia, unspecified; Z99.2 Dependence on renal dialysis; Z79.82 Long term (current) use of aspirin; Z79.4 Long term (current) use of insulin; Z87.891 Personal history of nicotine dependence
CPT/HCPCS: 01844; 36821; 36415; 80048; 82962; 85027; 93005; J7040

== ENCOUNTER 2020-11-27 06:29 | Day surgery (SDC) | payer MEDICARE, SELFPAY ==
[2020-11-17 08:15] VITALS: BMI 32.5
[2020-11-25 11:43] LABS: Hematocrit 39.9 % (40-54); Mean Corp Hgb Conc 32.6 g/dL (32-36); Mean Corpuscular Hgb 30.7 pg (27.0-32.0); Mean Corpuscular Volume 94.3 fL (80-94); Mean Platelet Vol. 11.4 fl (6.2-12.0); Platelet Count 204 K/mm3 (150-450); RBC Distribution Width CV 12.7 % (11.6-14.6); Red Blood Count 4.23 M/mm3 (4.6-6.2); White Blood Count 8.3 K/mm3 (4.4-11.0)
[2020-11-25 12:05] LABS: Anion Gap 6 (5-15); BUN 24 mg/dL (7-18); BUN/Creat Ratio 9.4 RATIO (10-20); Calcium,Total 8.4 mg/dL (8.5-10.1); Chloride 97 mmol/L (98-107); Creatinine, Serum 2.56 mg/dL (0.70-1.30); EST Glomerular Filtration Rate 26 mL/min (>60); Est Glom Filt Rate - Afr Amer 31 mL/min (>60); Glucose 136 mg/dL (74-106); Potassium 3.7 mmol/L (3.5-5.1); Sodium Level 137 mmol/L (136-145)
[2020-11-26 09:11] VITALS: BMI 32.5
--- NOTE | 2020-11-27 07:50 | HP.PCM_ITS ---
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 Is patient in pain?: No Allergies pioglitazone [From Actos] Allergy (Verified 11/17/20 08:14) fatigue simvastatin [From Zocor] Allergy (Verified 11/17/20 08:14) myalgia sitagliptin [From Januvia] Allergy (Verified 11/17/20 08:14) unknown Medications glipizide 10 mg tablet 10 mg PO BID tablet 05/18/19 [History Confirmed 10/27/20] insulin glargine 26 units SC DINNER 04/18/20 [History Confirmed 10/27/20] cholecalciferol (vitamin D3) 5,000 unit PO DAILY #30 tablet 05/02/20 [Rx Confirmed 10/27/20] aspirin 81 mg tablet,delayed release 81 mg PO DAILY 07/01/20 [History Confirmed 10/27/20] [facility] Medical History Abnormal electrocardiogram Cancer Chronic diastolic (congestive) heart failure (04/18/20) Chronic kidney disease, stage III (moderate) Dialysis patient Edema Essential (primary) hypertension HLD (hyperlipidemia) Hyperkalemia Hypertension Kidney disease Left bundle-branch block Loose, teeth 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 Non-smoker Paroxysmal atrial fibrillation Peritoneal dialysis catheter in place Sinus bradycardia Swelling of both lower extremities Syncope Type 2 diabetes mellitus Wears glasses Surgical History History of appendectomy History of arteriovenostomy for renal dialysis History of inguinal hernia repair Family History Mother Hypertension Father Diabetes COPD (chronic obstructive pulmonary disease) Social History Smoking Status: Never smoker alcohol intake: current substance use type: does not use caffeine: Yes what type of physical activity do you participate in: none seatbelt use: always do you feel safe at home: Yes HPI HPI HPI: PERLA LUBIN, is a 85 M who presents to the office today for ongoing surgical follow-up regarding a left forearm radiocephalic arteriovenous hemodialysis fistula that was created by myself on 10/01/2020. ROS General General: Yes fatigue; No weight change, appetite, colon cancer, breast cancer or weakness HEENT HEENT: No difficulty swallowing, eye injury, eye surgery, swollen glands or ho arseness Endo Endocrine: Yes diabetes mellitus; No thyroid disease, thyroid cancer, Hair loss, heat intolerance or cold intolerance Skin Skin: No rash or changing moles Breast Breast: No left breast lump, right breast lump, nipple discharge, breast pain, abnormal mammogram, abnormal US or breast enlargement Musc Musculoskeletal: No back problems, arthritis, rheumatoid arthritis, gout or joint pain Cardio Cardiovascular: Yes heart disease, atrial fibrillation and high blood pressure; No murmur, pacemaker, heart attack, heart stent, palpitations, shortness of breat with exertion or chest pain Psych Psychiatric: No depression, anxiety or hearing voices Resp Respiratory: No shortness of breath, No sleep apnea, No cough, No COPD, No asthma, No emphysema and No wheezing Gastro Gastrointestinal: No abdominal pain, No nausea or vomiting, No diarrhea, No constipation, No blood in stool, No acid reflux, No hemorrhoids, No ulcers, No gallbladder problem and No black,tarry stools Asa Hematologic: No blood thinners, No blood disorders, No bleeding, No anemia and No blood clots Neuro Neurologic: No system reviewed and no additional complaints, except as documented, No as per HPI, No abnormal gait, No abnormal hearing, No abnormal movements, No abnormal speech, No behavioral changes, No burning sensations, No confusion, No convulsions, No disequilibrium, No dizziness, No localized weakness, No frequent falls, No headache(s), No lack of coordination, No loss of vision, No memory loss, No numbness, No other visual disturbances, No radicular pain, No restless legs, No sensory deficit, No syncope, No tingling, No tremor(s), No weakness and No other Exam Const General: cooperative and healthy appearing [facility] Head: normal to inspection Resp Effort & Inspection: normal respiratory effort Auscultation: clear to auscultation bilaterally Cardio Rate: regular rate Rhythm: regular rhythm Extrem Other: Left forearm radiocephalic arteriovenous hemodialysis fistula quite small throughout. High-pitched bruit at the wrist. COVID (Procedure Consent) Procedure Criteria Procedure Criteria: Yes Elective The surgeon/proceduralist and patient have discussed in detail the risk of exposure to and/or potential harm posed by the COVID-19 virus with having a surgery/procedure at this time versus the risk of delaying the surgery/procedure. It is not possible to know either the risk of delaying the surgery or procedure or chance of getting an infection with perfect accuracy, but a joint decision was made between the patient and the surgeon/proceduralist to proceed at this time with the scheduled surgery/procedure as indicated on the consent form. Assessment and Plan Assessment and Plan (1) Problem with dialysis access: Status: Acute Qualifiers: Encounter type: initial encounter Qualified Code(s): T82.898A - Other specified complication of vascular prosthetic devices, implants and grafts, initial encounter Plan Details Additional Comments: Failure to mature left forearm radiocephalic arteriovenous hemodialysis fistula. I propose for him a retrograde left forearm fistulogram with anticipated endovascular intervention. He is aware of the technique, benefit, risk and alternatives. This is a rather new fistula created for him on 10/01/2020. He is already on hemodialysis via tunneled catheters. He is aware of the technique, benefit, risk, alternatives. He has had an opportunity to ask and have questions answered. We will proceed as noted. Randal Macias M.D., F.A.C.S. Coding Level of Care Code Global Post Op Exam Problem Focused Diagnoses Problem with dialysis access T82.898A Encounter type: initial encounter I have re-examined the patient. There are no clinical changes since date of exam.
--- NOTE | 2020-11-27 08:58 | OP.PCM_ITS ---
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 85-year-old gentleman was taken to the special procedures lab placed on the table. The left upper extremity was sterilely prepped and draped. Ultrasound was used to identify the course of the left forearm cephalic vein. In the proximal third of the forearm local was instilled under ultrasound guidance and then a micropuncture needle was inserted retrograde with flow. Micropuncture wire inserted. 6 [place] short sheath catheter inserted. The patient received 5000 and's of heparin. Using a 4 [place] glide cath and 035 Glidewire I was not able to get proximal access to the radial artery at the anastomosis. I was able to get distally so then I placed a 4 x 20 mm Powerflex balloon and performed balloon angioplasty of the distal arenas of the graft in the distal radial artery. He tolerated that well. Then using the 4 [place] angled glide cath and Glidewire I was then able to manipulate the wire into the proximal renal artery. Interesting enough the glide cath would not advance. I then placed a 3 x 40 mm Powerflex balloon perform balloon angioplasty of the radial artery 3 cm proximal to the anastomosis and included the anastomosis. I then replaced the 4 x 20 mm Powerflex balloon perform balloon angioplasty just of the anastomotic area and radial artery supplying it. He tolerated all that well. Completion views now demonstrated dramatic improvement. I finished the fistulogram of the upper extremity. A balloons and wires were removed. Sheath was removed. A new suture of 4-0 nylon was placed. LEENA stasis was intact. There was markedly improved inflow. No apparent complication blood loss minimal. Imaging demonstrates initial imaging that there appears to be lack of significant arterial inflow from the radial artery proximal to the anastomosis. The cephalic vein appears to be of adequate diameter. There are 2 major side branches of the cephalic vein in the mid to distal left forearm. There is good cephalic and basilic vein outflow and good central venous outflow. Subsequent to the angioplasty now there is markedly improved radial artery flow providing inflow to the fistula and markedly improved anastomotic diameter. Randal Macias M.D., F.A.C.S. Surgeon: Randal Macias
== END 2020-11-27 10:05 | disposition home or self-care (01) ==
LOC: CLSP 06:30
PROVIDERS: PCP Family Medicine; Referring Provider Surgery; Visit Provider Surgery
DX: T82.898A Other specified complication of vascular prosthetic devices, implants and grafts, initial encounter (principal); I12.9 Hypertensive chronic kidney disease with stage 1 through stage 4 chronic kidney disease, or unspecified chronic kidney disease; E11.22 Type 2 diabetes mellitus with diabetic chronic kidney disease; N18.30 Chronic kidney disease, stage 3 unspecified; E78.5 Hyperlipidemia, unspecified; Z99.2 Dependence on renal dialysis; Z79.4 Long term (current) use of insulin; Z79.899 Other long term (current) drug therapy
CPT/HCPCS: 36415; 36902; 76937; 80048; 85027; Q9967; C1725; C1769

== ENCOUNTER 2021-11-06 09:01 | Day surgery (SDC) | payer MEDICARE, SELFPAY ==
[2021-11-05 09:04] VITALS: BMI 32.5
[2021-11-06 09:14] LABS: Hematocrit 35.6 % (40-54); Hemoglobin 11.4 g/dL (13.0-16.5); Mean Corpuscular Hgb 30.4 pg (27.0-32.0); Mean Corpuscular Volume 94.9 fL (80-94); Mean Platelet Vol. 11.2 fl (6.2-12.0); Platelet Count 160 K/mm3 (150-450); RBC Distribution Width CV 12.4 % (11.6-14.6); Red Blood Count 3.75 M/mm3 (4.6-6.2); White Blood Count 8.1 K/mm3 (4.4-11.0)
[2021-11-06 09:27] LABS: Anion Gap 5 (5-15); BUN 54 mg/dL (7-18); BUN/Creat Ratio 12.6 RATIO (10-20); Chloride 103 mmol/L (98-107); EST Glomerular Filtration Rate 14 mL/min (>60); Est Glom Filt Rate - Afr Amer 17 mL/min (>60); Estimated Creatinine Clearance 12.37 ml/min; Glucose 263 mg/dL (74-106); Potassium 4.3 mmol/L (3.5-5.1); Sodium Level 138 mmol/L (136-145)
--- NOTE | 2021-11-06 09:57 | PCM.HP.BLA ---
History and Physical Date of Admission: 11/06/21 isit Reasons:?L ARM DIALYSIS CATH LOW ADEQUECY LOW ACCESS FLOW Chief Complaint: Check fistula Liquefaction And Regasification Helper Required: No Is patient in pain?: No Allergies pioglitazone [From Actos] Allergy (Verified 10/21/21 13:55) fatiguesimvastatin [From Zocor] Allergy (Verified 10/21/21 13:55) myalgiasitagliptin [From Januvia] Allergy (Verified 10/21/21 13:55) unknown Medications glipizide 10 mg tablet 10 mg PO BID? tablet 05/18/19 [History Confirmed 06/15/21] cholecalciferol (vitamin D3) 5,000 unit PO DAILY #30 tablet 05/02/20 [Rx Confirmed 06/15/21] aspirin 81 mg tablet,delayed release 81 mg PO DAILY 07/01/20 [History Confirmed 06/15/21] insulin glargine 100 unit/mL (3 mL) subcutaneous pen 22 unit SC DINNER? ml 02/18/21 [History Confirmed 06/15/21] vitamin B12 500 mcg-folic acid 400 mcg tablet 1 tab PO DAILY 10/21/21 [History Confirmed 10/21/21] PFSH Medical History? Abnormal electrocardiogram Cancer Chronic diastolic (congestive) heart failure (04/18/20) Dialysis patient Edema Essential (primary) hypertension HLD (hyperlipidemia) Hyperkalemia Kidney disease Left bundle-branch block Loose, teeth 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 Non-smoker Paroxysmal atrial fibrillation Peritoneal dialysis catheter in place Pre-op testing Sinus bradycardia Swelling of both lower extremities Syncope Type 2 diabetes mellitus Wears glasses Surgical History? History of appendectomy History of arteriovenostomy for renal dialysis History of inguinal hernia repair History of ligation of vein Family History? Mother HypertensionFather Diabetes COPD (chronic obstructive pulmonary disease) Social History? Smoking Status:? Never smoker alcohol intake:? current substance use type:? does not use caffeine:? Yes what type of physical activity do you participate in:? none seatbelt use:? always do you feel safe at home:? Yes HPI HPI HPI: PERLA LUBIN, is a 86 M who presents to the office today for decreased adequacyand decreased access flows. Patient states he is running well without any issues. He is unsure why he presents today. Our office has received a referral due to decrease in adequacy at 1.13 and 1.14. Access flows have been less than 400. Patient's last fistulogram was completed on 11/27/20 due to failure to mature. Findings at that time included anastomotic and proximal left radial artery stenosis. A 3 x 40 mm angioplasty to the left radial artery and 4 x 2 Powerflex angioplasty to the left cephalic vein and radial artery anastomosis. Patient dialyzes currently on T,Th and Sat. He is maintained on daily aspirin. He also has a history of 2 side branch ligations on 12/05/20. ROS General General: Yes fatigue; No weight change, appetite, colon cancer, breast cancer or weakness HEENT HEENT: No difficulty swallowing, eye injury, eye surgery, swollen glands or hoarseness Endo Endocrine: Yes diabetes mellitus; No thyroid disease, thyroid cancer, Hair loss, heat intolerance or cold intolerance Skin Skin: No rash or changing moles Breast Breast: No left breast lump, right breast lump, nipple discharge, breast pain, abnormal mammogram, abnormal US or breast enlargement Musc Musculoskeletal: No back problems, arthritis, rheumatoid arthritis, gout or joint pain Cardio Cardiovascular: Yes heart disease, atrial fibrillation and high blood pressure; No murmur, pacemaker, heart attack, heart stent, palpitations, shortness of breat with exertion or chest pain Psych Psychiatric: No depression, anxiety or hearing voices Resp Respiratory: No shortness of breath, No sleep apnea, No cough, No COPD, No asthma, No emphysema and No wheezing Gastro Gastrointestinal: No abdominal pain, No nausea or vomiting, No diarrhea, No constipation, No blood in stool, No acid reflux, No hemorrhoids, No ulcers, No gallbladder problem and No black,tarry stools Asa Hematologic: No blood thinners, No blood disorders, No bleeding, No anemia and No blood clots Neuro Neurologic: No system reviewed and no additional complaints, except as documented, No as per HPI, No abnormal gait, No abnormal hearing, No abnormal movements, No abnormal speech, No behavioral changes, No burning sensations, No confusion, No convulsions, No disequilibrium, No dizziness, No localized weakness, No frequent falls, No headache(s), No lack of coordination, No loss of vision, No memory loss, No numbness, No other visual disturbances, No radicular pain, No restless legs, No sensory deficit, No syncope, No tingling, No tremor(s), No weakness and No other Exam Const General: cooperative, healthy appearing, comfortable and no acute distress Other: Presents in a wheel chair [facility] Head: normal to inspection Eyes General: appearance normal, both eyes and all related structures Neck Neck: normal visual inspection Chest Chest palpation & inspection: normal inspection of the chest Resp Effort & Inspection: normal respiratory effort Auscultation: clear to auscultation bilaterally Cardio Rate: bradycardic Heart Sounds: murmur GI Inspection: normal to inspection and obesity Palpation: soft Musc Cervical Spine: normal cervical lordosis Skin General: no rashes or lesions noted Neuro General: no focal motor deficits and CN's II-XI intact bilaterally Extrem Other: Left forearm radial to cephalic arteriovenous fistula- diminished pulse, bruit and thrill. Psych Appearance: grossly normal Affect: normal affect Assessment and Plan Assessment and Plan (1) Problem with dialysis access: ?Status:?Acute ?Qualifiers: ?Encounter type:?initial encounter? Qualified Code(s):?T82.898A - Other specified complication of vascular prosthetic devices, implants and grafts, initial encounter ?Plan - Catalina MINER PA-C: Dr. Macias will plan to perform a non-urgent left forearm arteriovenous fistulogram. Procedure details, risks and benefits have been explained to the patient and his daughter. Patient verbally understands and agrees with the plan. He may continue on his aspirin for the procedure. Coding Level of Care Code Off vis,est,level 3 Diagnoses Problem with dialysis access? T82.898A ? ? ? Encounter type: initial encounter 10/22/21 1449 <Electronically signed by Catalina MINER PA-C> Date Catalina MINER PA-C I have re-examined the patient. There are no clinical changes since date of exam. Randal Macias M.D., F.A.C.S.
--- NOTE | 2021-11-06 11:00 | OP.PCM_ITS ---
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 86-year-old gentleman was taken to the special procedures lab. He was placed upon the table. He ate today so no sedative was provided. Under ultrasound guidance after prepping the left upper extremity identify the cephalic vein closer to the antecubital space and used 2% lidocaine and then a micropuncture needle to get retrograde access to the cephalic vein micropuncture wire 6 [place] short sheath dilator. I was able to advance a 035 angled Glidewire with a 4 [place] angled glide cath into the radial artery proximal to the anastomosis. Fistulogram was obtained. This demonstrated patency of the anastomosis with a 2 cm length of normal cephalic vein followed by a very high-grade greater than 90% focal area over approximately a centimeter stenosis. Was then able to get a SV 5 wire. I placed a 6 x 2 cutting balloon and approximately 6 different insufflations of the cutting balloon was required to resolve the area of stenosis. I withdrew the balloon just slightly and there was an additional area of slight defect that was treated. I then exchanged out the cutting balloon for the 4 [place] glide cath and obtained a completion fistulogram at that area demonstrated now complete resolution of the area of stenosis. Through the sheath I completed the fistulogram of the left upper arm. 19 cc of Isovue was utilized. This sheath was removed and a U suture of 4-0 nylon was placed. There was good flow noted no apparent complication blood loss was minimal. Images demonstrate a left forearm radiocephalic arteriovenous hemodialysis fistula with a widely patent radial artery and proximal anastomosis and then a high-grade 90% focal area of stenosis within the proximal fistula. There was resolution of this subsequent to Cutting Balloon angioplasty. Good upper arm cephalic and basilic vein outflow and good central venous outflow Randal Macias M.D., F.A.C.S. Surgeon: Randal Macias Type of Anesthesia: Local
== END 2021-11-06 12:05 | disposition home or self-care (01) ==
PROVIDERS: PCP Family Medicine; Referring Provider Surgery; Visit Provider Surgery
DX: T82.898A Other specified complication of vascular prosthetic devices, implants and grafts, initial encounter (principal); Z79.4 Long term (current) use of insulin; E11.9 Type 2 diabetes mellitus without complications; Z79.82 Long term (current) use of aspirin; Z79.899 Other long term (current) drug therapy; X58.XXXA Exposure to other specified factors, initial encounter
CPT/HCPCS: 36415; 36902; 76937; 80048; 85027; C1725; Q9967; C1769

== ENCOUNTER 2024-04-14 10:27 | Inpatient (IN) | payer MEDICARE, SELFPAY ==
[2024-04-14] VITALS (7 sets, daily range): BP systolic 120–139; BP diastolic 61–78; PULSE 50–89; RESP 14–18; TEMP 36.4–37.1; O2SAT 95–99; BMI 30.8; BMI 31.8
--- NOTE | 2024-04-14 10:53 | EDS_ITS ---
HPI History of Present Illness Chief Complaint: Wound Informant: patient and family (Daughter) Narrative Narrative: 88-year-old male diabetic brought by his daughter because she just found out that he has what appears to be a terrible infection bottom of his right foot. Patient is very poor historian. He lives alone but family is in and out frequently according to the daughter. He has been having some memory issues and is no more confused than usual but has been complaining of feeling achy all over and just feeling poorly in general, although he denies feeling poorly at this time. He has some numbness in both of his feet. Daughter states that doctors follow-ups when they checked for neuropathy he for the most part can feel pinpricks in the bottom of his foot. He states his foot has been hurting him at times but is not hurting right now. He denies any discharge on his socks that he knows of. His legs are grossly asymmetric in appearance, when asked if he notices that he states yes he can appreciate that and when asked how long it has been like that, he states he has no idea. [facility] Medical History Pre-op testing Loose, teeth Wears glasses Cancer Dialysis patient Kidney disease Non-smoker Edema Syncope Peritoneal dialysis catheter in place Chronic diastolic (congestive) heart failure (04/18/20) Paroxysmal atrial fibrillation Sinus bradycardia Type 2 diabetes mellitus Essential (primary) hypertension Hyperkalemia Swelling of both lower extremities HLD (hyperlipidemia) Left bundle-branch block 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 Abnormal electrocardiogram Home Medications ?Medication ?Instructions ?Recorded ?Last Taken ?Type cholecalciferol (vitamin D3) 25 5,000 unit PO DAILY #30 tabs 05/02/20 11/06/21 Rx mcg (1,000 unit) tablet aspirin 81 mg tablet,delayed 81 mg PO DAILY 07/01/20 11/06/21 History release (Adult Aspirin Regimen) cyanocobalamin (vitamin B-12) 1,000 mcg PO .qod 10/07/23 Unknown History 1,000 mcg tablet (Vitamin B-12) insulin glargine 100 unit/mL (3 37 unit subcut DINNER diabetes 10/07/23 Unknown History mL) subcutaneous pen torsemide 100 mg tablet 100 mg PO 04/14/24 Unknown History Allergy/AdvReac Type Severity Reaction Status Date / Time pioglitazone (From Actos) Allergy fatigue Verified 04/14/24 10:28 simvastatin (From Zocor) Allergy myalgia Verified 04/14/24 10:28 sitagliptin (From Januvia) Allergy unknown Verified 04/14/24 10:28 Family History Mother Hypertension Father Diabetes COPD (chronic obstructive pulmonary disease) Surgical History History of cataract extraction History of ligation of vein History of arteriovenostomy for renal dialysis History of inguinal hernia repair History of appendectomy Social History Smoking Status: Never smoker alcohol intake: never substance use type: does not use caffeine: Yes Type: coffee Number of servings: 1 what type of physical activity do you participate in: none seatbelt use: always do you feel safe at home: Yes ROS ROS ED Constitutional Constitutional ED: Reports body ache(s) and fatigue; Denies chills or fever(s) Eyes Eyes: Denies change in vision or diplopia ENT ENT ED: Denies rhinorrhea or sore throat Cardiovascular Cardiovascular: Denies chest pain or palpitations Respiratory/Chest Respiratory/Chest: Denies cough or dyspnea Gastrointestinal Gastrointestinal: Denies abdominal pain, diarrhea, nausea or vomiting Genitourinary Genitourinary ED: Denies dysuria or hematuria Musculoskeletal Musculoskeletal: Denies back pain or neck pain Integumentary Reports as per HPI and wounds; Denies abscess or rash Neurologic Neurologic: Reports paresthesias RLE and LLE; Denies headache(s) or weakness Psychiatric Psychiatric: Denies anxiety or suicidal thoughts EXAM Physical Exam Const Vital Signs: 04/14/24 10:29 04/14/24 10:31 04/14/24 11:31 Temperature 98.3 F 98.7 F 98.6 F Temperature Source Temporal Oral Oral Pulse Rate 53 L 56 L 61 Respiratory Rate 14 18 16 Blood Pressure 121/67 H 124/78 H 129/64 H Blood Pressure Mean 85 93 85 Pulse Ox 96 97 95 Oxygen Delivery Method Room Air Room Air Room Air 04/14/24 12:18 04/14/24 12:46 Temperature 97.8 F 97.6 F L Temperature Source Oral Pulse Rate 89 54 L Respiratory Rate 16 18 Blood Pressure 124/78 H 120/61 Blood Pressure Mean 93 80 Pulse Ox 98 99 Oxygen Delivery Method Room Air Positive well nourished and well developed General Appearance ED: well developed and NAD HEENT Reports moist mucous membranes normocephalic and atraumatic Eyes PERRL and EOMs intact bilaterally Neck full ROM and supple Resp normal respiratory effort and clear to auscultation bilaterally Cardio regular rate, regular rhythm and no murmurs Cardio Narrative: Left forearm AV fistula good thrill and distal pulse GI non-tender and non-distended Auscultation: normoactive bowel sounds Palpation: soft Back/Spine no CVA tenderness General Back: other FROM Extremity Extremity Narrative: Right foot and lower leg cellulitic to the mid lower leg. There is mild tenderness in the erythema. At the plantar aspect of the right foot, there is a closed wound, there is some early signs of some necrotic tissue, and there is fluctuance and it feels like there is fluid within it. There is no subcutaneous emphysema away from this, but the cellulitis appears to emanate from this area at the plantar aspect. There are no other wounds on the foot. The contralateral foot is without any erythema and has no wounds but there is lots of flaking epidermis between the toes and the plantar aspect of the feet. General Extremety ED: Yes edema and tenderness; Negative for pulses abnormal General Extremity: edema bilateral lower extremity Details: mild; Negative for pulses abnormal Neuro oriented x3 and CN's II-XII intact bilaterally Neuro Narrative: No focal motor deficits Decree sensation distal both feet, nontender on wound that is clearly infected plantar aspect right forefoot Sensorium / Orientation: awake and alert Psych mental status grossly normal Skin no rashes or lesions noted Skin Narrative: Wound with possible abscess plantar aspect of the right foot along with surrou nding cellulitis emanating senior living up the lower leg see above no other wounds MDM MDM MDM Narrative Medical decision making narrative: Obtained a septic workup and also sent a culture from the wound, see the procedure note. It appeared to be an abscess but after the procedure it was evident that it is more likely to be necrotic tissue and not abscess. His labs are noted, he has an associated leukocytosis, he is ESR and CRP are elevated, and 3 view x-ray my interpretation does show localized subcutaneous air that not necessarily tracking proximally, but may be associated with early osteomyelitis changes at the distal first metatarsal (radiology said no to this). I see no other acute abnormalities. Empiric vancomycin was started after obtaining blood cultures, his lactic acid is within normal limits and clinically and hemodynamically he is well-appearing and not septic, but I think this infection is advanced enough to require admission, IV antibiotics, and podiatry consultation. I spoke with Dr. Mendoza who will see the patient and request that an MRI be obtained of the right foot. He agrees there may be early osteomyelitis. Patient is a hemodialysis patient. He gets hemodialysis Tuesday, , Tuesday, and his last dialysis was this morning before coming here, Tuesday. Lab Data Attestation: I reviewed the patient's lab results. Labs: Laboratory Results - last 24 hr 04/14/24 11:20 WBC 14.0 H RBC 3.71 L Hgb 11.3 L Hct 35.3 L MCV 95.1 H MCH 30.5 MCHC 32.0 RDW Std Deviation 52.1 H RDW Coeff of Frances 15.1 H Plt Count 255 MPV 10.8 Immature Gran % (Auto) 0.600 Neut % (Auto) 80.5 H Lymph % (Auto) 9.7 L [place] % (Auto) 8.6 Eos % (Auto) 0.3 Baso % (Auto) 0.3 Absolute Neuts (auto) 11.3 H Absolute Lymphs (auto) 1.36 Nucleated RBC % 0 ESR 87 H Sodium 136 Potassium 3.7 Chloride 96 L Carbon Dioxide 32.0 Anion Gap 8 BUN 27 H Creatinine 2.84 H Estim Creat Clear Calc 21.22 Est GFR (MDRD) Af Amer 27 L Est GFR (MDRD) Non-Af 23 L BUN/Creatinine Ratio 9.5 L Glucose 130 H Lactic Acid 1.6 Calcium 8.6 Total Bilirubin 0.50 AST 15 ALT 11 L Alkaline Phosphatase 62 C-React Prot Ext Range 267.00 H Total Protein 8.0 Albumin 2.7 L Globulin 5.3 H Albumin/Globulin Ratio 0.5 L Radiography Diagnostic Testing: Clinical Impression(s) from Imaging Studies Foot X-Ray 04/14/24 11:45 IMPRESSION: Soft tissue gas suggestive of infection. No evidence of osteomyelitis. Electronically Signed: Jerome Blanchard MD at 12:44 EST , Management Discussion w/another healthcare provider: Hospitalist and Ammonia Nitrate Operator (emily podiatry) Procedures Other Procedures Procedure(s): Wound/abscess aspiration: After verbal consent from the patient and family, I swabbed the wound with chlorhexidine sterilizing it, there is no spontaneous discharge but it feels fluctuant. I inserted a sterile 18-gauge needle into the lateral aspect of it, redirecting it in multiple different locations but there was no liquid to aspirate except for a scant drop of serosanguineous foul-smelling liquid from inside the wound that I was able to swab with a culture swab and sent for culture. The patient had zero pain with any of the 18-gauge needle probing, likely due to neuropathy. Tolerated well without complications. After performing this procedure it is evident that this is not an abscess, and more likely necrotic tissue. Discharge Plan Dx/Rx/DC Orders Clinical Impression: Cellulitis of right lower limb, Diabetic infection of right foot, Chronic kidney disease, stage V requiring chronic dialysis Disposition Disposition: [facility]
[2024-04-14 11:33] LABS: Absolute Lymphocyte Count 1.36 X10^3/uL (0.83-4.51); Absolute Neutrophil Count 11.3 X10^3/uL (2.0-7.7); Basophil# 0.04 X10^3/uL; Basophil% 0.3 % (0-1); Eosinophil# 0.04 X10^3/uL; Eosinophils% 0.3 % (0-5); Hematocrit 35.3 % (40-54); Hemoglobin 11.3 g/dL (13.0-16.5); Lymphocyte # 1.36 X10^3/ul (0.83-4.51); Lymphocyte % 9.7 % (19-41); Mean Corpuscular Hgb 30.5 pg (27.0-32.0); Mean Corpuscular Volume 95.1 fL (80-94); Mean Platelet Vol. 10.8 fl (6.2-12.0); Monocyte# 1.21 X10^3/uL; Monocyte% 8.6 % (0-10); NRBC Flagged by Analyzer 0 % (0-5); Neutrophil # 11.28 X10^3/uL (2.7-7.7); Neutrophil % 80.5 % (47-70); Platelet Count 255 K/mm3 (150-450); RBC Distribution Width CV 15.1 % (11.6-14.6); RBC Distribution Width SD 52.1 fl (35.1-43.9); Red Blood Count 3.71 M/mm3 (4.6-6.2)
--- NOTE | 2024-04-14 11:45 | RAD_ITS ---
EXAM: XR RIGHT FOOT COMPLETE, 3 OR MORE VIEWS CLINICAL INDICATION: infection TECHNIQUE: Frontal, lateral and oblique views of the right foot. COMPARISON: No relevant prior studies available. FINDINGS: BONES/JOINTS: No acute fracture or subluxation. No discrete evidence of osteomyelitis. Prominent diffuse arterial calcification. SOFT TISSUES: Soft tissue gas located along the plantar surface of the foot at the level of the distal half of the first metatarsal which may represent soft tissue infection. There is diffuse soft tissue swelling. No radiopaque foreign body. RAD/Foot min 3 Views IMPRESSION: Soft tissue gas suggestive of infection. No evidence of osteomyelitis. Electronically Signed: Jerome Blanchard MD at 12:44 EST ,
[2024-04-14 11:53] LABS: ALB/GLOB Ratio 0.5 RATIO (0.9-2.4); AST(SGOT) 15 U/L (15-37); Alanine Aminotransfer ALT/SGPT 11 U/L (16-61); Albumin, Serum 2.7 g/dL (3.2-5.0); Alkaline Phosphatase 62 U/L (45-117); Anion Gap 8 (5-15); BUN 27 mg/dL (7-18); BUN/Creat Ratio 9.5 RATIO (10-20); Calcium,Total 8.6 mg/dL (8.5-10.1); Chloride 96 mmol/L (98-107); Creatinine, Serum 2.84 mg/dL (0.70-1.30); EST Glomerular Filtration Rate 23 mL/min (>60); Est Glom Filt Rate - Afr Amer 27 mL/min (>60); Estimated Creatinine Clearance 21.22 ml/min; Globulin 5.3 g/dL (2.2-4.2); Glucose 130 mg/dL (74-106); Potassium 3.7 mmol/L (3.5-5.1); Sodium Level 136 mmol/L (136-145)
[2024-04-14 11:55] LABS: Lactic Acid 1.6 mmol/L (0.4-1.9)
[2024-04-14] MEDS: Vancomycin HCl 1,500 MG in 0.9% Normal Saline (500mL Bag) 500 ML 250 MG IV (11:56)
[2024-04-14 12:09] LABS: Erythrocyte Sedimentation Rate 87 mm/hr (0-20)
--- NOTE | 2024-04-14 13:20 | HP.PCM.HOS_ITS ---
HPI - General General Date of Admission: 04/14/24 Date of Service: 04/14/24 Chief Complaint: RLE cellulitis HPI Narrative PERLA LUBIN, is a 88-year-old male history of end-stage renal disease on hemodialysis, diabetes, heart failure preserved ejection fraction presented [facility] ED 04/14/2024 with a right foot infection. Feeling achy all over and is poor in general, has some chronic numbness in both feet. Daughter noticed today that he appeared to have an infection so she brought him to the ED, patient does not know how long it has been there. Patient with elevated white blood cell count, ESR, CRP. Foot x-ray obtained in the ED still awaiting read. ER doc was able to get a small amount of fluid out with needle aspiration to send for culture and podiatry contacted who recommended admission with MRI and they will see in consultation. Hospitalist contacted for admission. Patient evaluated with family member at bedside, reportedly patient's been having some pain in his right foot off-and-on for the past couple of weeks and has been having some increasing weakness generalized around the same length of time, also was just started on a diuretic on the ninth of this month for bilateral lower extremity swelling but nobody knew that he had an infection there and patient said he does not know how long it has been going on. Daughter today discover the infection brought patient to the ED. Patient denies any fevers or chills, does not feel much pain in the feet and has chronic neuropathy, denies any other new acute complaints. [facility] Medical History Pre-op testing Loose, teeth Wears glasses Cancer Dialysis patient Kidney disease Non-smoker Edema Syncope Peritoneal dialysis catheter in place Chronic diastolic (congestive) heart failure (04/18/20) Paroxysmal atrial fibrillation Sinus bradycardia Type 2 diabetes mellitus Essential (primary) hypertension Hyperkalemia Swelling of both lower extremities HLD (hyperlipidemia) Left bundle-branch block 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 Abnormal electrocardiogram Home Medications ?Medication ?Instructions ?Recorded ?Last Taken ?Type cholecalciferol (vitamin D3) 25 5,000 unit PO DAILY #30 tabs 05/02/20 11/06/21 Rx mcg (1,000 unit) tablet aspirin 81 mg tablet,delayed 81 mg PO DAILY 07/01/20 11/06/21 History release (Adult Aspirin Regimen) cyanocobalamin (vitamin B-12) 1,000 mcg PO .qod 10/07/23 Unknown History 1,000 mcg tablet (Vitamin B-12) insulin glargine 100 unit/mL (3 37 unit subcut DINNER diabetes 10/07/23 Unknown History mL) subcutaneous pen torsemide 100 mg tablet 100 mg PO 04/14/24 Unknown History Allergy/AdvReac Type Severity Reaction Status Date / Time pioglitazone (From Actos) Allergy fatigue Verified 04/14/24 10:28 simvastatin (From Zocor) Allergy myalgia Verified 04/14/24 10:28 sitagliptin (From Januvia) Allergy unknown Verified 04/14/24 10:28 Family History Mother Hypertension Father Diabetes COPD (chronic obstructive pulmonary disease) Surgical History History of appendectomy History of arteriovenostomy for renal dialysis History of cataract extraction History of inguinal hernia repair History of ligation of vein Social History Smoking Status: Never smoker alcohol intake: never substance use type: does not use caffeine: Yes Type: coffee Number of servings: 1 what type of physical activity do you participate in: none seatbelt use: always do you feel safe at home: Yes ROS ROS Narrative General: Denies fever/chills HENT: Denies headache, denies stuffy nose, denies sore throat EYES: Denies changes in vision Resp: Denies cough, denies shortness of breath Cardiac: Denies chest pain, does have some swelling in lower extremities GI: Denies abdominal pain, denies changes in bowel, denies nausea/vomiting : Denies changes in urination Extremity: Denies swelling MSK: Some generalized weakness Neuro: Denies any numbness/tingling Heme: Denies any bleeding or bruising Skin: Wound on bottom of right foot Psychiatric: No complaints voiced Vital Signs Vital Signs Vital Signs: 04/14/24 10:29 04/14/24 10:31 04/14/24 11:31 Temperature 98.3 F 98.7 F 98.6 F Temperature Source Temporal Oral Oral Pulse Rate 53 L 56 L 61 Respiratory Rate 14 18 16 Blood Pressure 121/67 H 124/78 H 129/64 H Blood Pressure Mean 85 93 85 Pulse Ox 96 97 95 Oxygen Delivery Method Room Air Room Air Room Air 04/14/24 12:18 04/14/24 12:46 Temperature 97.8 F 97.6 F L Temperature Source Oral Pulse Rate 89 54 L Respiratory Rate 16 18 Blood Pressure 124/78 H 120/61 Blood Pressure Mean 93 80 Pulse Ox 98 99 Oxygen Delivery Method Room Air Weight Weight: 94.8 kg Body Mass Index (BMI) 30.8 Physical Exam Narrative General: Alert, no apparent distress HEENT: Atraumatic, normocephalic Eyes: Anicteric, normal conjunctiva, extraocular movements grossly intact Neck: Supple Respiratory: Clear to auscultation bilaterally, normal respiratory effort Cardiovascular: Regular rate and rhythm GI: Soft, nontender, nondistended Extremities: 2+ bilateral lower extremity pitting edema, slight wrinkles on the left Musculoskeletal: Moving all extremities Neuro: No overt focal neurological deficits Skin: Right lower extremity erythematous with cellulitic appearance and black eschar at the base of the first metatarsal Psych: Cooperative Results Lab / Micro Data 04/14/24 11:20 04/14/24 11:20 Labs: Laboratory Results - last 24 hr 04/14/24 11:20: WBC 14.0 H, RBC 3.71 L, Hgb 11.3 L, Hct 35.3 L, MCV 95.1 H, MCH 30.5, MCHC 32.0, RDW Std Deviation 52.1 H, RDW Coeff of Frances 15.1 H, Plt Count 255, MPV 10.8, Immature Gran % (Auto) 0.600, Neut % (Auto) 80.5 H, Lymph % (Auto) 9.7 L, Oldham % (Auto) 8.6, Eos % (Auto) 0.3, Baso % (Auto) 0.3, Absolute Neuts (auto) 11.3 H, Absolute Lymphs (auto) 1.36, Nucleated RBC % 0, ESR 87 H, Sodium 136, Potassium 3.7, Chloride 96 L, Carbon Dioxide 32.0, Anion Gap 8, BUN 27 H, Creatinine 2.84 H, Estim Creat Clear Calc 21.22, Est GFR (MDRD) Af Amer 27 L, Est GFR (MDRD) Non-Af 23 L, BUN/Creatinine Ratio 9.5 L, Glucose 130 H, Lactic Acid 1.6, Calcium 8.6, Total Bilirubin 0.50, AST 15, ALT 11 L, Alkaline Phosphatase 62, C-React Prot Ext Range 267.00 H, Total Protein 8.0, Albumin 2.7 L, Globulin 5.3 H, Albumin/Globulin Ratio 0.5 L Imaging Radiology Impression Foot X-Ray 04/14/24 11:45 IMPRESSION: Soft tissue gas suggestive of infection. No evidence of osteomyelitis. Electronically Signed: Jerome Blanchard MD at 12:44 EST Reading Location ID and State: [facility] / [place] Tel , Service support , Assessment & Plan Assessment/Plan (1) Cellulitis of right lower limb: PLAN: Plan #Right lower extremity cellulitis with concern for foot osteomyelitis - small amount of fluid aspirated in ED and sent for culture from base of 1st MTP -Await culture - patient does have elevated white blood cell count of 14 and was noted to have CRP of 267 and an ESR of 87 but is vitally stable - x-ray of foot suggestive of infection - IV antibiotics, given this is a diabetic foot infection will place on Zosyn and vancomycin -Elevate extremities - MRI ordered - podiatry consult, discussed with podiatry, further dispo pending MRI -Will need vascular studies and potentially vascular involvement moving forward -Wound care consult #Type 2 diabetes mellitus -Glucose checks and sliding scale insulin -Will decrease long-acting insulin and uptitrate pending glucoses especially given his unclear what patient's n.p.o. status will be, want to avoid hypoglycemia #ESRD on HD - Tuesday, , Tuesday with most recent dialysis this a.m. - patient has AV fistula, not due again until Tuesday -Consult nephrology -Renal diet -Daily weights, I's and O's # History of chronic heart failure preserved ejection fraction - follows with cardiology - being managed with hemodialysis -Also had torsemide started on the for lower extremity edema on nondialysis days -Will continue this -Daily weights, I's and O's #DVT ppx: SCDs Jayla Osuna MD Charges/Coding Visit Charges Inpatient E&M: 09622 Init Hosp L2
--- NOTE | 2024-04-14 13:38 | ART_ITS ---
Reason For Study: Diabetic foot infection Procedure A bilateral lower extremity continuous wave Doppler with analog waveform analysis and ankle brachial indexes. Left Segmental Pressures Left posterior tibial artery = 98mmHg. Left dorsalis pedis artery = >254mmHg. Left digit = 67 mmHg. The left dorsalis pedis waveforms are monophasic. The left posterior tibial artery waveforms are monophasic. Right Segmental Pressures Right brachial= 153mmHg. Right posterior tibial artery = >254mmHg. Right dorsalis pedis artery = >254mmHg. The right dorsalis pedis waveforms are monophasic. The right posterior tibial artery waveforms are monophasic. Indices The right ankle brachial index by the dorsalis pedis is NC. The right ankle brachial index by the posterior tibial artery is NC. The left ankle brachial index by the dorsalis pedis is 0.64. VL/Ankle Brachial Index Interpretation Summary Right RAN not able to be obtained due to non-compressible vessels. Doppler/PVR waveforms of the right ankle moderately diminished at rest. TBI and digit waveforms not obtained . Left RAN 0.64, moderate arterial insufficiency. Doppler/PVR waveforms of the le ft ankle moderately diminished at rest. Ordering Physician: Jayla Osuna Referring Physician: Umang Yan Performed By: Anne-Marie Monzon RVT
[2024-04-14] MEDS: Piperacil/Tazobactam 4.5 GM in 0.9% Normal Saline (100mL MB+) 100 ML IV (15:50)
[2024-04-14] MEDS: 0.9% Saline Lock 10 ML Syringe IV (15:51)
--- NOTE | 2024-04-14 16:30 | PCM.RX.CS ---
Consult Antibiotic Management Pharmacy has been consulted to manage selected antibiotic: Vancomycin Type of Intervention Type of Consult: New start Suspected Infection Suspected Infection: Skin/Soft tissue Labs Labs: Sodium 136 mmol/L (136-145) 04/14/24 11:20 Potassium 3.7 mmol/L (3.5-5.1) 04/14/24 11:20 Chloride 96 mmol/L (98-107) L 04/14/24 11:20 Carbon Dioxide 32.0 mmol/L (21.0-32.0) 04/14/24 11:20 Anion Gap 8 (5-15) 04/14/24 11:20 BUN 27 mg/dL (7-18) H 04/14/24 11:20 Creatinine 2.84 mg/dL (0.70-1.30) H 04/14/24 11:20 Est GFR (MDRD) Af Amer 27 mL/min (>60) L 04/14/24 11:20 Est GFR (MDRD) Non-Af 23 mL/min (>60) L 04/14/24 11:20 BUN/Creatinine Ratio 9.5 RATIO (10-20) L 04/14/24 11:20 Glucose 130 mg/dL (74-106) H 04/14/24 11:20 Pharmacy Plan for Drug Dosing Pharmacy Plan for Drug Dosing: NEW START IV VANCOMYCIN Consulting Physician: Enrrique Indication: cellulitis Goal Trough: 15-20 mg/dl SrCr: HD CrCl: HD Comments: received 1500mg dose in ER 04/14 @ 1156, last HD AM of 04/14/24 [facility]comycin Dose: [facility] session this AM. Will schedule 750mg x1 after next HD (04/17) and get a pre-HD random level prior to following HD session (04/19) per policy. Pending Level: 04/19/24 @ 0600 - random, pre-HD Pharmacy Service will continue to monitor and adjust dosing as required.
[2024-04-14] MEDS: Glucerna Shake 120 ML LIQUID PO (17:27)
[2024-04-14] MEDS: Insulin Lispro 100 UNIT/ML INSULN.PEN SC ×2 (17:27→21:51)
[2024-04-14] MEDS: Insulin Glargine-YFGN 100 UNIT/ML Pen 25 UNIT SC (17:28)
[2024-04-14 17:41] LABS: Bedside Glucose 190 mg/dL (74-106)
[2024-04-14] MEDS: Piperacil/Tazobactam 3.375 GM in 0.9% Normal Saline (50mL MB+) 50 ML IV (21:52)
[2024-04-14 22:38] LABS: Bedside Glucose 310 mg/dL (74-106)
[2024-04-15 02:00] VITALS: BP 138/51; PULSE 65; RESP 18; TEMP 37.6; O2SAT 94
[2024-04-15 03:43] VITALS: BMI 32.0
[2024-04-15 04:39] LABS: Absolute Lymphocyte Count 1.56 X10^3/uL (0.83-4.51); Absolute Neutrophil Count 9.4 X10^3/uL (2.0-7.7); Basophil# 0.02 X10^3/uL; Basophil% 0.2 % (0-1); Eosinophil# 0.04 X10^3/uL; Eosinophils% 0.3 % (0-5); Hematocrit 31.9 % (40-54); Hemoglobin 9.8 g/dL (13.0-16.5); Lymphocyte # 1.56 X10^3/ul (0.83-4.51); Lymphocyte % 12.7 % (19-41); Mean Corp Hgb Conc 30.7 g/dL (32-36); Mean Corpuscular Hgb 29.8 pg (27.0-32.0); Mean Platelet Vol. 11.1 fl (6.2-12.0); Monocyte# 1.17 X10^3/uL; Monocyte% 9.6 % (0-10); NRBC Flagged by Analyzer 0 % (0-5); Neutrophil # 9.39 X10^3/uL (2.7-7.7); Neutrophil % 76.7 % (47-70); Platelet Count 238 K/mm3 (150-450); RBC Distribution Width SD 52.9 fl (35.1-43.9); Red Blood Count 3.29 M/mm3 (4.6-6.2); White Blood Count 12.2 K/mm3 (4.4-11.0)
[2024-04-15 05:20] LABS: International Normalized Ratio 1.4; Prothrombin Time (Protime)PT. 16.7 SECONDS (11.7-14.9)
[2024-04-15 05:48] LABS: ALB/GLOB Ratio 0.5 RATIO (0.9-2.4); AST(SGOT) 9 U/L (15-37); Alanine Aminotransfer ALT/SGPT 13 U/L (16-61); Albumin, Serum 2.3 g/dL (3.2-5.0); Alkaline Phosphatase 49 U/L (45-117); Anion Gap 10 (5-15); BUN 40 mg/dL (7-18); BUN/Creat Ratio 10.6 RATIO (10-20); Calcium,Total 8.4 mg/dL (8.5-10.1); Chloride 97 mmol/L (98-107); Creatinine, Serum 3.79 mg/dL (0.70-1.30); EST Glomerular Filtration Rate 16 mL/min (>60); Est Glom Filt Rate - Afr Amer 20 mL/min (>60); Estimated Creatinine Clearance 16.15 ml/min; Globulin 4.7 g/dL (2.2-4.2); Glucose 124 mg/dL (74-106); Potassium 3.8 mmol/L (3.5-5.1); Sodium Level 135 mmol/L (136-145); Thyroid Stim Hormone (TSH) 0.665 uIU/mL (0.358-3.740)
[2024-04-15] MEDS: Acetaminophen 325 MG Tablet 650 MG PO (06:38)
[2024-04-15 07:06] LABS: Bedside Glucose 117 mg/dL (74-106)
[2024-04-15 08:24] VITALS: BP 125/40; PULSE 50; RESP 16; TEMP 37.1; O2SAT 91
--- NOTE | 2024-04-15 08:39 | PCM.PN.HOSP ---
Reason for Visit Reason for Visit: Diagnoses Cellulitis of right lower limb (04/14/24) Subjective Subjective Patient reports he thinks his foot is feeling a little bit better today, has no other new or acute complaints. Objective Data Objective Data Vital Signs: Vital Signs Temp Pulse Resp BP Pulse Ox O2 Del Method 98.8 F 50 L 16 125/40 H 91 Room Air 04/15/24 08:24 04/15/24 08:24 04/15/24 08:24 04/15/24 08:24 04/15/24 08:24 04/15/24 08:24 Oxygen Delivery Method Room Air Weight: 98.02 kg Body Mass Index (BMI) 32.0 Intake & Output: Intake and Output for Last 24 Hours 04/13/24 04/14/24 04/15/24 23:59 23:59 23:59 Intake Total 1080 / 1080 50 / 50 Output Total 0 / 0 Balance 1080 / 1080 50 / 50 Lab / Micro Data 04/15/24 04:15 04/15/24 04:15 Labs: Laboratory Results - last 24 hr 04/14/24 11:20: WBC 14.0 H, RBC 3.71 L, Hgb 11.3 L, Hct 35.3 L, MCV 95.1 H, MCH 30.5, MCHC 32.0, RDW Std Deviation 52.1 H, RDW Coeff of Frances 15.1 H, Plt Count 255, MPV 10.8, Immature Gran % (Auto) 0.600, Neut % (Auto) 80.5 H, Lymph % (Auto) 9.7 L, Armstrong % (Auto) 8.6, Eos % (Auto) 0.3, Baso % (Auto) 0.3, Absolute Neuts (auto) 11.3 H, Absolute Lymphs (auto) 1.36, Nucleated RBC % 0, ESR 87 H, Sodium 136, Potassium 3.7, Chloride 96 L, Carbon Dioxide 32.0, Anion Gap 8, BUN 27 H, Creatinine 2.84 H, Estim Creat Clear Calc 21.22, Est GFR (MDRD) Af Amer 27 L, Est GFR (MDRD) Non-Af 23 L, BUN/Creatinine Ratio 9.5 L, Glucose 130 H, Lactic Acid 1.6, Calcium 8.6, Total Bilirubin 0.50, AST 15, ALT 11 L, Alkaline Phosphatase 62, C-React Prot Ext Range 267.00 H, Total Protein 8.0, Albumin 2.7 L, Globulin 5.3 H, Albumin/Globulin Ratio 0.5 L 04/14/24 17:22: POC Glucose 190 H 04/14/24 21:48: POC Glucose 310 H 04/15/24 04:15: WBC 12.2 H, RBC 3.29 L, Hgb 9.8 L, Hct 31.9 L, MCV 97.0 H, MCH 29.8, MCHC 30.7 L, RDW Std Deviation 52.9 H, RDW Coeff of Frances 15.0 H, Plt Count 238, MPV 11.1, Immature Gran % (Auto) 0.500, Neut % (Auto) 76.7 H, Lymph % (Auto) 12.7 L, Armstrong % (Auto) 9.6, Eos % (Auto) 0.3, Baso % (Auto) 0.2, Absolute Neuts (auto) 9.4 H, Absolute Lymphs (auto) 1.56, Nucleated RBC % 0, PT 16.7 H, INR 1.4, Sodium 135 L, Potassium 3.8, Chloride 97 L, Carbon Dioxide 28.0, Anion Gap 10, BUN 40 H, Creatinine 3.79 H, Estim Creat Clear Calc 16.15, Est GFR (MDRD) Af Amer 20 L, Est GFR (MDRD) Non-Af 16 L, BUN/Creatinine Ratio 10.6, Glucose 124 H, Calcium 8.4 L, Total Bilirubin 0.50, AST 9 L, ALT 13 L, Alkaline Phosphatase 49, Total Protein 7.0, Albumin 2.3 L, Globulin 4.7 H, Albumin/Globulin Ratio 0.5 L, TSH 0.665 04/15/24 06:34: POC Glucose 117 H Micro: Microbiology 04/15/24 05:30 Wound - Right Foot Skin and Soft Tissue MRSA/MSSA (PCR - Final Radiography Diagnostic Testing: Radiology Impression Foot X-Ray 04/14/24 11:45 IMPRESSION: Soft tissue gas suggestive of infection. No evidence of osteomyelitis. Electronically Signed: Jerome Blanchard MD at 12:44 EST , Physical Exam Narrative General: Alert, no apparent distress HEENT: Atraumatic, normocephalic Eyes: Anicteric, normal conjunctiva, extraocular movements grossly intact Neck: Supple Respiratory: Clear to auscultation bilaterally, normal respiratory effort Cardiovascular: Regular rate and rhythm GI: Soft, nontender, nondistended Extremities: 2+ bilateral lower extremity pitting edema, slight wrinkles on both sides now Musculoskeletal: Moving all extremities Neuro: No overt focal neurological deficits Skin: Right lower extremity erythematous with cellulitic appearance, still cellulitic but appears slightly improved, does have some tenderness in the foot, patient not distressed Psych: Cooperative Assessment & Plan Assessment/Plan (1) Cellulitis of right lower limb: PLAN: Plan #Right lower extremity cellulitis with concern for foot osteomyelitis - small amount of fluid aspirated in ED and sent for culture from base of 1st MTP -Await culture - patient does have elevated white blood cell count of 14 and was noted to have CRP of 267 and an ESR of 87 but is vitally stable - x-ray of foot suggestive of infection - IV antibiotics, given this is a diabetic foot infection will place on Zosyn and vancomycin -Elevate extremities - MRI ordered - podiatry consult, discussed with podiatry, further dispo pending MRI -Will need vascular studies and potentially vascular involvement moving forward -Wound care consult -04/15: Continue IV antibiotics. No culture data yet available, ultimately may need ID consultation, podiatry consultation, MRI ordered but not yet completed, continue local wound care. Arterial duplex of lower extremities also ordered #Type 2 diabetes mellitus -Glucose checks and sliding scale insulin -Will decrease long-acting insulin and uptitrate pending glucoses especially given his unclear what patient's n.p.o. status will be, want to avoid hypoglycemia -04/15: Glucose only 117 this morning, will continue to monitor and adjust insulin as indicated #ESRD on HD - Tuesday, , Tuesday with most recent dialysis this a.m. - patient has AV fistula, not due again until Tuesday -Consult nephrology -Renal diet -Daily weights, I's and O's -04/15: Nephrology consulted # History of chronic heart failure preserved ejection fraction - follows with cardiology - being managed with hemodialysis -Also had torsemide started on the for lower extremity edema on nondialysis days -Will continue this -Daily weights, I's and O's -04/15: Continue to monitor volume status, reportedly weight was 94.8 kg at 11 AM yesterday and then 98 at 2 PM, suspect that the 94 may not have been accurate but will continue to monitor weights, continue torsemide. Patient does report he makes urine usually # Intermittent bradycardia -Long-term problem for patient, follows with cardiology for this, no rate limiting medications #DVT ppx: SCDs Jayla Osuna MD Time spent in the patient's overall evaluation,decision-making process, review of diagnostic data, adjustment of management, discussion with other providers, nursing nursing and ancillary staff involved in patient's care documentation, 36 Minutes Charges/Coding Visit Charges Inpatient E&M: 87363 Subs Hosp L2
[2024-04-15 09:22] LABS: Erythrocyte Sedimentation Rate 68 mm/hr (0-20)
[2024-04-15] MEDS: Piperacil/Tazobactam 3.375 GM in 0.9% Normal Saline (50mL MB+) 50 ML IV ×2 (10:13→23:01)
[2024-04-15] MEDS: Torsemide 100 MG Tablet PO (10:15)
[2024-04-15 11:16] LABS: Bedside Glucose 114 mg/dL (74-106)
[2024-04-15 14:00] VITALS: BP 126/67; PULSE 50; RESP 18; TEMP 36.9; O2SAT 95
[2024-04-15] MEDS: Insulin Lispro 100 UNIT/ML INSULN.PEN SC ×2 (16:44→23:02)
[2024-04-15 17:03] LABS: Bedside Glucose 188 mg/dL (74-106)
[2024-04-15] MEDS: Glucerna Shake 120 ML LIQUID PO (17:53)
[2024-04-15] MEDS: Insulin Glargine-YFGN 100 UNIT/ML Pen 25 UNIT SC (17:54)
[2024-04-15] MEDS: Juven (unflavored) Packet 1 PACKET PO (17:55)
[2024-04-15 20:00] VITALS: BP 141/56; PULSE 61; RESP 18; TEMP 36.7; O2SAT 93
[2024-04-15] MEDS: Nystatin Powder 15gm Bottle 1 APPLIC TOPICAL (23:02)
[2024-04-15] MEDS: Menthol/Lanolin/Calamine/Znox 113 GM Tube 1 APPLIC TOPICAL (23:02)
[2024-04-15 23:26] LABS: Bedside Glucose 262 mg/dL (74-106)
[2024-04-16] VITALS (12 sets, daily range): BP systolic 130–275; BP diastolic 49–75; PULSE 48–69; RESP 15–18; TEMP 36.7–37.3; O2SAT 93–98; BMI 32.0; BMI 31.0
[2024-04-16 05:41] LABS: Absolute Lymphocyte Count 1.44 X10^3/uL (0.83-4.51); Absolute Neutrophil Count 10.4 X10^3/uL (2.0-7.7); Basophil# 0.03 X10^3/uL; Basophil% 0.2 % (0-1); Eosinophil# 0.07 X10^3/uL; Eosinophils% 0.5 % (0-5); Hematocrit 32.4 % (40-54); Lymphocyte # 1.44 X10^3/ul (0.83-4.51); Lymphocyte % 10.9 % (19-41); Mean Corp Hgb Conc 30.9 g/dL (32-36); Mean Corpuscular Hgb 29.9 pg (27.0-32.0); Mean Platelet Vol. 11.1 fl (6.2-12.0); Monocyte# 1.27 X10^3/uL; Monocyte% 9.6 % (0-10); NRBC Flagged by Analyzer 0 % (0-5); Neutrophil # 10.39 X10^3/uL (2.7-7.7); Neutrophil % 78.4 % (47-70); Platelet Count 223 K/mm3 (150-450); RBC Distribution Width CV 14.9 % (11.6-14.6); RBC Distribution Width SD 52.6 fl (35.1-43.9); Red Blood Count 3.34 M/mm3 (4.6-6.2); White Blood Count 13.3 K/mm3 (4.4-11.0)
--- NOTE | 2024-04-16 06:00 | EKG12_ITS ---
Test Reason : PRE-OP Blood Pressure : */* mmHG Vent. Rate : 64 BPM Atrial Rate : 64 BPM P-R Int : 128 ms QRS Dur : 110 ms QT Int : 442 ms P-R-T Axes : 42 -1 103 degrees QTcB Int : 455 ms Probable atypical A Flutter with 4:1 conduction Incomplete left bundle branch block Nonspecific ST and T wave abnormality Abnormal ECG Confirmed by Warren Jackson ([id number]), editorial manager GEE DUNCAN ([id number]) on 04/16/2024 9:56:42 AM Referred By: YO Confirmed By: Warren Jackson
[2024-04-16 06:04] LABS: Anion Gap 9 (5-15); BUN 57 mg/dL (7-18); Calcium,Total 8.6 mg/dL (8.5-10.1); Chloride 96 mmol/L (98-107); Creatinine, Serum 4.76 mg/dL (0.70-1.30); EST Glomerular Filtration Rate 12 mL/min (>60); Est Glom Filt Rate - Afr Amer 15 mL/min (>60); Estimated Creatinine Clearance 12.86 ml/min; Glucose 148 mg/dL (74-106); Potassium 4.1 mmol/L (3.5-5.1); Sodium Level 133 mmol/L (136-145)
[2024-04-16] MEDS: Nystatin Powder 15gm Bottle 1 APPLIC TOPICAL ×3 (06:19→21:05)
[2024-04-16] MEDS: Menthol/Lanolin/Calamine/Znox 113 GM Tube 1 APPLIC TOPICAL ×3 (06:19→21:06)
[2024-04-16 06:39] LABS: Bedside Glucose 142 mg/dL (74-106)
--- NOTE | 2024-04-16 07:53 | CON.PCM_ITS ---
Assessment & Plan Assessment/Plan (1) Cellulitis of right lower limb: (2) Neuropathic ulcer of right foot with fat layer exposed: (3) Diabetes mellitus with diabetic polyneuropathy: (4) Type 2 diabetes mellitus with foot ulcer: (5) Diabetic infection of right foot: PLAN: Plan Patient seen and evaluated Right foot: There is an ulceration plantar to the first metatarsal head with necrotic eschar with slight bogginess to palpation. There is some ecchymosis secondary to tissue destruction along the medial aspect of the first metatarsal head secondary to infection. There is erythema and cellulitic like appearance of the foot extending proximally to the proximal tibia, this has improved on IV antibiotic with decreasing erythema. Predebridement ulceration measures 1.4 cm x 1.4 cm with unstageable depth secondary to eschar. Postdebridement ulceration measures 1.5 cm x 1.5 cm x 0.3 cm. Underlying the fibrotic there is no purulent drainage but there is malodor with dense, thickened, yellow and brown nonviable fibrotic tissue. There is some tunneling of the ulceration 0.3 cm at the 3 o'clock position, 0.3 cm at the 9 o'clock position and 0.6 cm at the 6 o'clock position. No purulent drainage expressible. WBC 13.3, decreased from 14; ESR 87; CRP 267; lactic acid 1.6 HgbA1c 9% on 04/16/2024 Cultures: MRSA PCR negative; Staph aureus protein A PCR negative; wound swab demonstrating strep anginosus Radiograph right foot: There is some soft tissue gas possibly correlating to infection plantar first metatarsal, negative for osteomyelitis. MRI was ordered for further evaluation of right foot demonstrating: Soft tissue cellulitis and myositis. There is some soft tissue air about the ulceration secondary to prior debridement. No abscess formation. No evidence of osteomyelitis. LEAS performed 04/16/2024: Left lower extremity demonstrates monophasic DP and PT pulses. PT indices 0.64, DP noncompressible, digit 0.44. Moderate arterial disease. Right lower extremity demonstrates monophasic DP and PT pulses. PT indices noncompressible, DP noncompressible. Following verbal permission right foot was cleansed with Betadine about the ulcerative site and site did undergo sharp excisional debridement down to the level of the subcutaneous tissue utilizing a #15 blade and forceps. 100% of the ulceration was debrided. Debridement consisted of removal of necrotic tissue/eschar, fibrous, devitalized subcutaneous, biofilm, slough. No purulent drainage was encountered during debridement nor expressible. There was some malodor during debridement noted of the tissue. Swab cultures anaerobic and aerobic obtained. Tissue cultures also obtained. No local anesthetic utilized secondary to diabetic peripheral polyneuropathy. There was minimal bleeding of the tissue during debridement. Site was copiously irrigated including the undermining pockets at the positions noted above with a 20 mL syringe with an 18-gauge needle for a total of 250 mL normal sterile saline. Postdebridement ulceration measured 1.5 cm x 1.5 cm x 0.3 cm. Dakin's wet to dry dressing applied to ulcerative site. Dressing to be changed daily. He is to remain nonweightbearing to the right lower extremity with the assistance of walker/wheelchair. If weightbearing status poses problem he will be permitted to bear weight within a short CAM boot to the right foot with offloading padding about the first metatarsal head. Medicine following for medical management, they are greatly appreciated Infectious disease following for antibiotic management Vascular consulted to optimize blood flow to aid in healing of right foot ulceration. Plan for possible angio Tuesday per vascular. Wound nurse following for assistance in dressing changes Patient's MRI was negative for osteomyelitis and thus we will continue with additional bedside debridement under local anesthetic Tuesday. Following angio patient may be discharged with continued follow in the wound care center with me. I will continue to follow while patient is in-house. Jr. Luisito ArriolaM. [facility] [phone] HPI Consult Data Date of Consult: 04/16/24 HPI Narrative Reason for Consultation: Right foot ulceration with cellulits HPI Narrative: PERLA LUBIN, is a 88 M who presents to [facility] afternoon of 04/14/[address] his daughter who is concerned for worsening right foot infection. He has PMHx of DM type II with peripheral polyneuropathy, PVD, end- stage renal disease on hemodialysis, and heart failure. Patient did finish dialysis prior to arrival to the hospital. Daughter states that he has been complaining of left foot pain over the last 3 weeks and also usually has socks on up to the knee. Patient states that he started to feel ill at daughter removed the sock and noticed cellulitis of the right lower extremity with ulceration to the plantar aspect of the first metatarsal head. Patient is unsure of how long the ulceration has been present. Patient is noted to be poor historian. In ED he did undergo radiograph of the right foot demonstrating some soft tissue gas with likely possible infection, and negative for osteomyelitis. Vascular calcifications were noted on radiograph. WBC 14.0, lactic acid 1.6, ESR 87, CRP 267. He also underwent needle aspiration which was negative for purulent drainage or fluid. He denies N/V/F/Chills. Denies Trauma. He was consulted to podiatry for further evaluation of his right foot ulceration. 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 Abnormal electrocardiogram Home Medications ?Medication ?Instructions ?Recorded ?Last Taken ?Type cholecalciferol (vitamin D3) 25 5,000 unit PO DAILY #30 tabs 05/02/20 11/06/21 Rx mcg (1,000 unit) tablet aspirin 81 mg tablet,delayed 81 mg PO DAILY 07/01/20 11/06/21 History release (Adult Aspirin Regimen) cyanocobalamin (vitamin B-12) 1,000 mcg PO .SUMOWEDFR supplement 10/07/23 Unknown History 1,000 mcg tablet (Vitamin B-12) insulin glargine 100 unit/mL (3 37 unit subcut DINNER diabetes 10/07/23 Unknown History mL) subcutaneous pen torsemide 100 mg tablet 100 mg PO MOWEFR water pill 04/14/24 Unknown History Allergy/AdvReac Type Severity Reaction Status Date / Time pioglitazone (From Actos) Allergy fatigue Verified 04/14/24 10:28 simvastatin (From Zocor) Allergy myalgia Verified 04/14/24 10:28 sitagliptin (From Januvia) Allergy unknown Verified 04/14/24 10:28 Family History Mother Hypertension Father Diabetes COPD (chronic obstructive pulmonary disease) Surgical History History of cataract extraction History of ligation of vein History of arteriovenostomy for renal dialysis History of inguinal hernia repair History of appendectomy Social History Smoking Status: Never smoker alcohol intake: never substance use type: does not use caffeine: Yes Type: coffee Number of servings: 1 what type of physical activity do you participate in: none seatbelt use: always do you feel safe at home: Yes ROS Constitutional Constitutional: Reports malaise; Denies anorexia, body ache(s), chills or fever(s) Eyes Eyes: Denies diplopia, erythema or loss of vision ENT HEENT: Denies dysphagia, nasal congestion, rhinorrhea or sore throat Cardiovascular Cardiovascular: Denies chest pain, claudication or palpitations Respiratory/Chest Respiratory/Chest: Denies cough, dyspnea or shortness of breath at rest Gastrointestinal Gastrointestinal: Denies abdominal pain, constipation, diarrhea, nausea or vomiting Genitourinary Genitourinary: Denies dysuria, hematuria or urinary urgency Musculoskeletal Musculoskeletal: Denies joint pain, joint stiffness or joint swelling Integumentary Integumentary: Denies jaundice, lesions, pruritus or rash Neurologic Neurologic: Denies dizziness, numbness or seizures Psychiatric Psychiatric: Denies anxiety or depression Endocrine Endocrinology: Denies cold intolerance, heat intolerance, polydipsia or polyphagia Hematologic/Lymphatic Hematologic/Lymphatic: Denies easy bleeding or easy bruising Allergic/Immunologic Allergic/Immunologic: Denies wheezing Physical Exam Const alert, oriented x3 and no apparent distress Constitutional Narrative: Nontoxic-appearing General Appearance: cooperative HEENT normocephalic Eyes General Eye: normal appearance of both eyes Neck General: normal visual inspection Lymph Lymphatic: no lymphadenopathy noted and no lymphedema noted Resp normal respiratory effort Cardio regular rate and regular rhythm Extremity no calf tenderness Extremity Narrative: Left lower extremity: Vascular: DP and PT pulses nonpalpable. CFT is greater than 5 seconds/delayed to digits. Normal temperature gradient. Hair growth is absent to digits/foot. Neurologic: Gross sensation intact. Protective sensation absent secondary to diabetic peripheral polyneuropathy Musculoskeletal: Muscle strength 5 of 5 age-appropriate. Decreased range of motion of the first metatarsophalangeal joint dorsiflexion without pain or crepitus. Decreased range of motion of the ankle joint in dorsiflexion with the knee extended without pain or crepitus. No pain to palpation about the calf. Dermatologic: Skin is mildly xerotic secondary to peripheral vascular disease with likely autonomic neuropathy. Skin otherwise unremarkable. Right lower extremity: Vascular: DP and PT pulses nonpalpable. CFT is greater than 5 seconds/delayed to digits. Normal temperature gradient. Hair growth absent to digits/foot. Neurologic: Gross sensation intact. Protective sensation absent secondary to diabetic peripheral polyneuropathy Musculoskeletal: Muscle strength 5 of 5 age-appropriate. Decreased range of motion of the first metatarsophalangeal joint in dorsiflexion without pain or crepitus. Decreased range of motion of the ankle joint dorsiflexion with the knee extended without pain or crepitus. No pain to palpation about the calf. Dermatological: There is an ulceration plantar to the first metatarsal head with necrotic eschar with slight bogginess to palpation. There is some ecchymosis secondary to tissue destruction along the medial aspect of the first metatarsal head secondary to infection. There is erythema and cellulitic like appearance of the foot extending proximally to the proximal tibia, this has improved on IV antibiotic with decreasing erythema. Predebridement ulceration measures 1.4 cm x 1.4 cm with unstageable depth secondary to eschar. Postdebridement ulceration measures 1.5 cm x 1.5 cm x 0.3 cm. Underlying the fibrotic there is no purulent drainage but there is malodor with dense, thickened, yellow and brown nonviable fibrotic tissue. There is some tunneling of the ulceration 0.3 cm at the 3 o'clock position, 0.3 cm at the 9 o'clock position and 0.6 cm at the 6 o'clock position. No purulent drainage expressible. Skin no rashes or lesions noted, skin turgor normal and no jaundice Neuro moves all extremities Lab / Micro Data 04/16/24 05:26 04/16/24 05:26 Labs: Laboratory Results - last 24 hr 04/15/24 04:15: ESR 68 H, C-React Prot Ext Range 232.00 H 04/15/24 10:57: POC Glucose 114 H 04/15/24 16:43: POC Glucose 188 H 04/15/24 23:00: POC Glucose 262 H 04/16/24 05:26: WBC 13.3 H, RBC 3.34 L, Hgb 10.0 L, Hct 32.4 L, MCV 97.0 H, MCH 29.9, MCHC 30.9 L, RDW Std Deviation 52.6 H, RDW Coeff of Frances 14.9 H, Plt Count 223, MPV 11.1, Immature Gran % (Auto) 0.400, Neut % (Auto) 78.4 H, Lymph % (Auto) 10.9 L, Mcdowell % (Auto) 9.6, Eos % (Auto) 0.5, Baso % (Auto) 0.2, Absolute Neuts (auto) 10.4 H, Absolute Lymphs (auto) 1.44, Nucleated RBC % 0, Sodium 133 L, Potassium 4.1, Chloride 96 L, Carbon Dioxide 28.0, Anion Gap 9, BUN 57 H, C reatinine 4.76 H, Estim Creat Clear Calc 12.86, Est GFR (MDRD) Af Amer 15 L, Est GFR (MDRD) Non-Af 12 L, BUN/Creatinine Ratio 12.0, Glucose 148 H, Calcium 8.6 04/16/24 06:18: POC Glucose 142 H Micro: Microbiology 04/14/24 11:10 Wound - Right Foot Gram Stain - Final 04/14/24 11:10 Wound - Right Foot Wound Culture - Preliminary GPC Poss Enterococcus sp 04/15/24 05:30 Wound - Right Foot Skin and Soft Tissue MRSA/MSSA (PCR - Final
[2024-04-16] MEDS: 0.9% Normal Saline 1,000 ML IV.SOLN. 1000 ML OPERA.SITE (07:59)
[2024-04-16] MEDS: PureFlow B 3K Dialysis Soln 1 BAG 6 BAG PF (08:03)
--- NOTE | 2024-04-16 08:38 | WOUNDNOTE ---
wound photo: right foot
--- NOTE | 2024-04-16 09:15 | MRI_ITS ---
HISTORY: Active infection, concerning for osteomyelitis TECHNIQUE: Multiplanar and multisequence MR images of the right foot were obtained without contrast. 212 images. COMPARISON: XR 04/14/2024. FINDINGS: BONE: No acute fracture, cortical erosion, or confluent T1 signal abnormality identified. JOINT: Mild degenerative change. No significant joint effusion. LIGAMENTS: Intact Lisfranc ligament. TENDONS: No significant extensor or flexor synovitis. SOFT TISSUES: 1.5 cm ulceration at the plantar aspect of the first metatarsal head with mild air in the soft tissues. Extensive subcutaneous and intramuscular edema without drainable fluid collection identified.. MRI/Lower Ext/No Jt/w/o IMPRESSION: No evidence of osteomyelitis. Ulceration plantar to the first metatarsal head with mild air in the plantar soft tissues. Extensive cellulitis and myositis of the right foot. Electronically Signed: Zulma Alatorre MD at 15:54 EST ,
[2024-04-16] MEDS: Aspirin E.C. 81 MG Tablet PO (12:46)
[2024-04-16] MEDS: DAKIN'S SOL HALF STRENGTH (=0.25%) TOPICAL (12:47)
[2024-04-16] MEDS: Juven (unflavored) Packet 1 PACKET PO ×2 (12:47→16:39)
--- NOTE | 2024-04-16 13:03 | CASEMGMT ---
ISABEL CHENG Assessment Face to Face with patient for initial transition planning/care coordination assessment. ISABEL CHENG introduced self and role at [facility], pt voices understanding. Pt is A&Ox4 and is resting comfortably in bed and is calm. Care providers, pharmacy, and demographics verified. Admitting dx: RLE Cellulitis, Concern for Osteo LACE Strata: 3 PCP: Umang Yan Specialists: Denies Preferred Pharmacy:[facility] Insurance: [email or web address] [facility] Prescription Benefit: Yes LNOK: Hilaria Hunt (Carmela), Jie Obregon (XW) Living Arrangements: Pt lives alone in a single story home with a ramp to enter ADLs/IADLs: Reports ind at baseline Transportation: Self, daughter, son, XW. Denies concerns DME: Functioning [employer] and supplies. Pt states that he takes insulin and has sufficient supplies. Pt also has a cane and walker. HHC/SNF: Denies history OP HD: Pt states that he attends OP HD through [facility] in [place] every T//Sat at 0600. Wound: Pt states that this is new for him and that he does not have any supplies at home to tend to this Pt?s goal: Return to PLOF Plan: TBD. Anticipate SNF vs Home with HH and potential IV ATBs. Pt is scheduled for an MRI today to r/o osteo. 6-Click is 12. PT is ordered and pending. At this time, the pt does not deny SNF or HH. If the pt were to go home and would benefit from HH, pt denies wanting to review a list of local in network HHC companies and would like to go through [facility] HH. Pt was also provided with a verbal list of in-network infusion companies and states that he would like to go though [facility]. PROSPER and SW to follow. Report given to ELLY HALL CM. Too Pierson RN, CM
--- NOTE | 2024-04-16 13:40 | CON.PCM.ID_ITS ---
Assessment & Plan Assessment/Plan (1) Diabetic infection of right foot: PLAN: MRI pending, cont vanc/zosyn. Will follow, thank you (2) Chronic kidney disease, stage V requiring chronic dialysis: HPI Consult Data Date of Consult: 04/16/24 HPI Narrative Reason for Consultation: foot infection HPI Narrative: PERLA LUBIN, is a 88 M with ESRD, DM, presented with several days aches, fatigue, worsened redness/pain/ulceration on R foot. No fever. Admitted here 04/14 on vanc/zosyn, feeling ok today. No n/v/d. Full ROS performed and neg except as noted above. 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 Abnormal electrocardiogram Home Medications ?Medication ?Instructions ?Recorded ?Last Taken ?Type cholecalciferol (vitamin D3) 25 5,000 unit PO DAILY #30 tabs 05/02/20 11/06/21 Rx mcg (1,000 unit) tablet aspirin 81 mg tablet,delayed 81 mg PO DAILY 07/01/20 11/06/21 History release (Adult Aspirin Regimen) cyanocobalamin (vitamin B-12) 1,000 mcg PO .SUMOWEDFR supplement 10/07/23 Unknown History 1,000 mcg tablet (Vitamin B-12) insulin glargine 100 unit/mL (3 37 unit subcut DINNER diabetes 10/07/23 Unknown History mL) subcutaneous pen torsemide 100 mg tablet 100 mg PO MOWEFR water pill 04/14/24 Unknown History Allergy/AdvReac Type Severity Reaction Status Date / Time pioglitazone (From Actos) Allergy fatigue Verified 04/14/24 10:28 simvastatin (From Zocor) Allergy myalgia Verified 04/14/24 10:28 sitagliptin (From Januvia) Allergy unknown Verified 04/14/24 10:28 Family History Mother Hypertension Father Diabetes COPD (chronic obstructive pulmonary disease) Surgical History History of cataract extraction History of ligation of vein History of arteriovenostomy for renal dialysis History of inguinal hernia repair History of appendectomy Social History Smoking Status: Never smoker alcohol intake: never substance use type: does not use caffeine: Yes Type: coffee Number of servings: 1 what type of physical activity do you participate in: none seatbelt use: always do you feel safe at home: Yes Physical Exam Const alert and no apparent distress General Appearance: cooperative and lethargic HEENT normocephalic and head/scalp atraumatic Eyes PERRL and EOMs intact bilaterally Neck supple and No nodes Resp normal air movement and clear to auscultation bilaterally Cardio regular rate and regular rhythm GI soft to palpation, non-tender and non-distended Extremity General Extremity: edema Skin Skin Narrative: foot wrapped, reviewed photos Neuro CN's II-XII intact bilaterally Lab / Micro Data Attestation: I reviewed the patient's lab results. 04/16/24 05:26 04/16/24 05:26 Labs: Laboratory Results - last 24 hr 04/15/24 16:43: POC Glucose 188 H 04/15/24 23:00: POC Glucose 262 H 04/16/24 05:26: WBC 13.3 H, RBC 3.34 L, Hgb 10.0 L, Hct 32.4 L, MCV 97.0 H, MCH 29.9, MCHC 30.9 L, RDW Std Deviation 52.6 H, RDW Coeff of Frances 14.9 H, Plt Count 223, MPV 11.1, Immature Gran % (Auto) 0.400, Neut % (Auto) 78.4 H, Lymph % (Auto) 10.9 L, Kimble % (Auto) 9.6, Eos % (Auto) 0.5, Baso % (Auto) 0.2, Absolute Neuts (auto) 10.4 H, Absolute Lymphs (auto) 1.44, Nucleated RBC % 0, Sodium 133 L, Potassium 4.1, Chloride 96 L, Carbon Dioxide 28.0, Anion Gap 9, BUN 57 H, C reatinine 4.76 H, Estim Creat Clear Calc 12.86, Est GFR (MDRD) Af Amer 15 L, Est GFR (MDRD) Non-Af 12 L, BUN/Creatinine Ratio 12.0, Glucose 148 H, Hemoglobin A1c 9.0 H, Calcium 8.6 04/16/24 06:18: POC Glucose 142 H Micro: Microbiology 04/14/24 11:20 Blood Culture (Wb) - Anticubital Right Blood Culture - Preliminary No growth in 48 hours. 04/16/24 07:30 Wound - Right Foot Gram Stain - Final 04/16/24 07:30 Tissue - Right Foot Gram Stain - Final 04/14/24 11:10 Wound - Right Foot Gram Stain - Final 04/14/24 11:10 Wound - Right Foot Wound Culture - Preliminary Strep anginosus
[2024-04-16] MEDS: Piperacil/Tazobactam 3.375 GM in 0.9% Normal Saline (50mL MB+) 50 ML IV ×2 (14:43→21:05)
--- NOTE | 2024-04-16 16:17 | PCM.CONS.R ---
Assessment & Plan Assessment/Plan (1) ESRD (end stage renal disease): PLAN: on HD. HD today. see orders/flowsheets. RLE wound. cellulitis vs osteo. ID on consult HPI Consult Data Date of Consult: 04/16/24 HPI Narrative Reason for Consultation: ESRD HPI Narrative: PERLA LUBIN, is a 88 M who presents to the hospital with RLE foor infection- cellulitis vs osteo. has been seen by Podiatry and ID service. well known to us from office. ESRD on HD TTS schedule. currently seen on floor. other than pain at infection site denies any complications. 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 Abnormal electrocardiogram Home Medications ?Medication ?Instructions ?Recorded ?Last Taken ?Type cholecalciferol (vitamin D3) 25 5,000 unit PO DAILY #30 tabs 05/02/20 11/06/21 Rx mcg (1,000 unit) tablet aspirin 81 mg tablet,delayed 81 mg PO DAILY 07/01/20 11/06/21 History release (Adult Aspirin Regimen) cyanocobalamin (vitamin B-12) 1,000 mcg PO .SUMOWEDFR supplement 10/07/23 Unknown History 1,000 mcg tablet (Vitamin B-12) insulin glargine 100 unit/mL (3 37 unit subcut DINNER diabetes 10/07/23 Unknown History mL) subcutaneous pen torsemide 100 mg tablet 100 mg PO MOWEFR water pill 04/14/24 Unknown History Allergy/AdvReac Type Severity Reaction Status Date / Time pioglitazone (From Actos) Allergy fatigue Verified 04/14/24 10:28 simvastatin (From Zocor) Allergy myalgia Verified 04/14/24 10:28 sitagliptin (From Januvia) Allergy unknown Verified 04/14/24 10:28 Family History Mother Hypertension Father Diabetes COPD (chronic obstructive pulmonary disease) Surgical History History of cataract extraction History of ligation of vein History of arteriovenostomy for renal dialysis History of inguinal hernia repair History of appendectomy Social History Smoking Status: Never smoker alcohol intake: never substance use type: does not use caffeine: Yes Type: coffee Number of servings: 1 what type of physical activity do you participate in: none seatbelt use: always do you feel safe at home: Yes ROS ROS Narrative negative except above Physical Exam Narrative AAO3 pallor s1s2 clear abdomen soft RLE wound Lab / Micro Data 04/16/24 05:26 04/16/24 05:26 Labs: Laboratory Results - last 24 hr 04/15/24 16:43: POC Glucose 188 H 04/15/24 23:00: POC Glucose 262 H 04/16/24 05:26: WBC 13.3 H, RBC 3.34 L, Hgb 10.0 L, Hct 32.4 L, MCV 97.0 H, MCH 29.9, MCHC 30.9 L, RDW Std Deviation 52.6 H, RDW Coeff of Frances 14.9 H, Plt Count 223, MPV 11.1, Immature Gran % (Auto) 0.400, Neut % (Auto) 78.4 H, Lymph % (Auto) 10.9 L, Elk % (Auto) 9.6, Eos % (Auto) 0.5, Baso % (Auto) 0.2, Absolute Neuts (auto) 10.4 H, Absolute Lymphs (auto) 1.44, Nucleated RBC % 0, Sodium 133 L, Potassium 4.1, Chloride 96 L, Carbon Dioxide 28.0, Anion Gap 9, BUN 57 H, Creatinine 4.76 H, Estim Creat Clear Calc 12.86, Est GFR (MDRD) Af Amer 15 L, Est GFR (MDRD) Non-Af 12 L, BUN/Creatinine Ratio 12.0, Glucose 148 H, Hemoglobin A1c 9.0 H, Calcium 8.6 04/16/24 06:18: POC Glucose 142 H Micro: Microbiology 04/14/24 11:20 Blood Culture (Wb) - Anticubital Right Blood Culture - Preliminary No growth in 48 hours. 04/16/24 07:30 Wound - Right Foot Gram Stain - Final 04/16/24 07:30 Tissue - Right Foot Gram Stain - Final 04/14/24 11:10 Wound - Right Foot Gram Stain - Final 04/14/24 11:10 Wound - Right Foot Wound Culture - Preliminary Strep anginosus Imaging Radiology Impression Ankle Brachial Index 04/14/24 13:38 Interpretation Summary Right RAN not able to be obtained due to non-compressible vessels. Doppler/PVR waveforms of the right ankle moderately diminished at rest. TBI and digit waveforms not obtained. Left RAN 0.64, moderate arterial insufficiency. Doppler/PVR waveforms of the left ankle moderately diminished at rest. Ordering Physician: Jayla Osuna Referring Physician: Umang Yan Performed By: Anne-Marie Monzon RVT Lower Extremity MRI 04/16/24 09:15 IMPRESSION: No evidence of osteomyelitis. Ulceration plantar to the first metatarsal head with mild air in the plantar soft tissues. Extensive cellulitis and myositis of the right foot. Electronically Signed: Zulma Alatorre MD at 15:54 EST ,
[2024-04-16] MEDS: Insulin Lispro 100 UNIT/ML INSULN.PEN SC ×2 (16:33→21:06)
[2024-04-16] MEDS: Insulin Glargine-YFGN 100 UNIT/ML Pen 25 UNIT SC (16:35)
[2024-04-16] MEDS: Vancomycin HCl 750 MG in 0.9% Normal Saline (250mL Bag) 250 ML 265 MG IV (16:35)
[2024-04-16 17:03] LABS: Bedside Glucose 266 mg/dL (74-106)
--- NOTE | 2024-04-16 17:26 | CON.PCM.SX_ITS ---
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 Wound only recently developed with no prior wounds at this location. History of DM and does visit podiatry for foot care though has been a while. No prior arterial interventions, no prior digit wounds/amputations. A few weeks before wound developed he changed his shoes ESRD on HD for 4 years via left rad-ceph fistula. DM for about 10 years, mostly well controlled as far as he knows. 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 Abnormal electrocardiogram Home Medications ?Medication ?Instructions ?Recorded ?Last Taken ?Type cholecalciferol (vitamin D3) 25 5,000 unit PO DAILY #30 tabs 05/02/20 11/06/21 Rx mcg (1,000 unit) tablet aspirin 81 mg tablet,delayed 81 mg PO DAILY 07/01/20 11/06/21 History release (Adult Aspirin Regimen) cyanocobalamin (vitamin B-12) 1,000 mcg PO .SUMOWEDFR supplement 10/07/23 Unknown History 1,000 mcg tablet (Vitamin B-12) insulin glargine 100 unit/mL (3 37 unit subcut DINNER diabetes 10/07/23 Unknown History mL) subcutaneous pen torsemide 100 mg tablet 100 mg PO MOWEFR water pill 04/14/24 Unknown History Allergy/AdvReac Type Severity Reaction Status Date / Time pioglitazone (From Actos) Allergy fatigue Verified 04/14/24 10:28 simvastatin (From Zocor) Allergy myalgia Verified 04/14/24 10:28 sitagliptin (From Januvia) Allergy unknown Verified 04/14/24 10:28 Family History Mother Hypertension Father Diabetes COPD (chronic obstructive pulmonary disease) Surgical History History of cataract extraction History of ligation of vein History of arteriovenostomy for renal dialysis History of inguinal hernia repair History of appendectomy Social History Smoking Status: Never smoker alcohol intake: never substance use type: does not use caffeine: Yes Type: coffee Number of servings: 1 what type of physical activity do you participate in: none seatbelt use: always do you feel safe at home: Yes ROS Constitutional Constitutional: Denies chills, fever(s), frequent falls, lethargy or weakness Eyes Eyes: Denies blind spots, change in vision or loss of vision ENT HEENT: Denies bleeding gums, hoarseness or sore throat Cardiovascular Cardiovascular: Denies abdominal pain, bluish discoloration of hand/feet, chest pain with activity, claudication, cold extremities, cyanosis, dyspnea on exertion, erythema on extremities, irregular heart rhythm, leg edema, leg ulcers, numbness in extremities or weakness in extremities Respiratory/Chest Respiratory/Chest: Denies cough, excessive phlegm production, shortness of breath at rest, shortness of breath with exertion or wheezing Gastrointestinal Gastrointestinal: Denies anorexia, change in stool character, constipation, diarrhea, melena or rectal bleeding Genitourinary Genitourinary: Denies dysuria or hematuria Musculoskeletal Musculoskeletal: Denies abnormal gait Integumentary Integumentary: Reports other Details: ; Denies erythema, non-healing lesions or wounds Neurologic Neurologic: Denies abnormal speech, focal weakness, headache(s), loss of vision, numbness, paresthesias or sensory deficit Hematologic/Lymphatic Hematologic/Lymphatic: Denies easy bleeding, easy bruising or lymphadenopathy Physical Exam Const alert, oriented x3, no apparent distress and healthy appearing General Appearance: cooperative; Negative for combative or lethargic Orientation / Consciousness: awake Exam Limitations: no limitations HEENT Head and Scalp: normocephalic and atraumatic Eyes EOMs intact bilaterally General Eye: normal appearance of both eyes Neck full ROM and no lymphadenopathy General: trachea midline; Negative for lymphadenopathy Resp normal respiratory effort and no use of accessory muscles Effort and Inspection: Negative for labored, stridor or audible wheezes Cardio regular rate, regular rhythm and no murmurs Peripheral Pulses: brachial pulses present, radial pulses present, femoral pulses present and popliteal pulses present Back/Spine Cervical Spine: cervical ROM normal Extremity full ROM, normal capillary refill and no clubbing, cyanosis or edema Skin no rashes or lesions noted Neuro oriented x3, CN's II-XII intact bilaterally, no focal motor deficits and no sensory deficits noted Psych thought process normal, cooperative, affect normal, speech normal and activity/motor behavior normal Lab / Micro Data 04/16/24 05:26 04/16/24 05:26 Labs: Laboratory Results - last 24 hr 04/15/24 23:00: POC Glucose 262 H 04/16/24 05:26: WBC 13.3 H, RBC 3.34 L, Hgb 10.0 L, Hct 32.4 L, MCV 97.0 H, MCH 29.9, MCHC 30.9 L, RDW Std Deviation 52.6 H, RDW Coeff of Frances 14.9 H, Plt Count 223, MPV 11.1, Immature Gran % (Auto) 0.400, Neut % (Auto) 78.4 H, Lymph % (Auto) 10.9 L, [place] % (Auto) 9.6, Eos % (Auto) 0.5, Baso % (Auto) 0.2, Absolute Neuts (auto) 10.4 H, Absolute Lymphs (auto) 1.44, Nucleated RBC % 0, Sodium 133 L, Potassium 4.1, Chloride 96 L, Carbon Dioxide 28.0, Anion Gap 9, BUN 57 H, C reatinine 4.76 H, Estim Creat Clear Calc 12.86, Est GFR (MDRD) Af Amer 15 L, Est GFR (MDRD) Non-Af 12 L, BUN/Creatinine Ratio 12.0, Glucose 148 H, Hemoglobin A1c 9.0 H, Calcium 8.6 04/16/24 06:18: POC Glucose 142 H 04/16/24 16:25: POC Glucose 266 H Micro: Microbiology 04/14/24 11:20 Blood Culture (Wb) - Anticubital Right Blood Culture - Preliminary No growth in 48 hours. 04/16/24 07:30 Wound - Right Foot Gram Stain - Final 04/16/24 07:30 Tissue - Right Foot Gram Stain - Final 04/14/24 11:10 Wound - Right Foot Gram Stain - Final 04/14/24 11:10 Wound - Right Foot Wound Culture - Preliminary Strep anginosus Imaging Radiology Impression Ankle Brachial Index 04/14/24 13:38 Interpretation Summary Right RAN not able to be obtained due to non-compressible vessels. Doppler/PVR waveforms of the right ankle moderately diminished at rest. TBI and digit waveforms not obtained. Left RAN 0.64, moderate arterial insufficiency. Doppler/PVR waveforms of the left ankle moderately diminished at rest. Ordering Physician: Jayla Osuna Referring Physician: Umang Yan Performed By: Anne-Marie Monzon Logan Lower Extremity MRI 04/16/24 09:15 IMPRESSION: No evidence of osteomyelitis. Ulceration plantar to the first metatarsal head with mild air in the plantar soft tissues. Extensive cellulitis and myositis of the right foot. Electronically Signed: Zulma Alatorre MD at 15:54 EST , Charges/Coding Visit Charges Inpatient E&M: 56150 Init Hosp L3
--- NOTE | 2024-04-16 17:40 | PCM.PN.HOSP ---
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 I did talk with podiatry by phone, they stated they would be gone the latter part of the week and they do not anticipate doing any surgery on the patient's foot. Patient's MRI was pending, they had a space for him to go undergo an MRI today but he was eating lunch and did not want to go down for his MRI and instead opted to eat lunch. Patient was seen by infectious diseases who recommended continuing vancomycin and Zosyn. MRI of the right foot showed no evidence of osteomyelitis, there is an ulceration in the plantar surface of the first metatarsal head with mild air in the plantar soft tissues. Extensive cellulitis and myositis of the right foot was noted. I talked briefly with infectious diseases, they prefer to wait for his final culture to return before making a decision whether he needs IV antibiotics or oral antibiotics. Objective Data Objective Data Vital Signs: Vital Signs Temp Pulse Resp BP Pulse Ox O2 Del Method 98.4 F 63 16 130/50 H 96 Room Air 04/16/24 14:19 04/16/24 14:19 04/16/24 14:19 04/16/24 14:19 04/16/24 14:19 04/16/24 14:19 Oxygen Delivery Method Room Air Weight: 95 kg Body Mass Index (BMI) 31.0 Intake & Output: Intake and Output for Last 24 Hours 04/14/24 04/15/24 04/16/24 23:59 23:59 23:59 Intake Total 1080 / 1080 1000 / 1350 423.33 / 423.33 Output Total 0 / 0 3000 / 3000 Balance 1080 / 1080 1000 / 1350 -2576.67 / -2576.67 Lab / Micro Data 04/17/24 06:23 04/17/24 06:23 Labs: Laboratory Results - last 24 hr 04/15/24 23:00: POC Glucose 262 H 04/16/24 05:26: WBC 13.3 H, RBC 3.34 L, Hgb 10.0 L, Hct 32.4 L, MCV 97.0 H, MCH 29.9, MCHC 30.9 L, RDW Std Deviation 52.6 H, RDW Coeff of Frances 14.9 H, Plt Count 223, MPV 11.1, Immature Gran % (Auto) 0.400, Neut % (Auto) 78.4 H, Lymph % (Auto) 10.9 L, [place] % (Auto) 9.6, Eos % (Auto) 0.5, Baso % (Auto) 0.2, Absolute Neuts (auto) 10.4 H, Absolute Lymphs (auto) 1.44, Nucleated RBC % 0, Sodium 133 L, Potassium 4.1, Chloride 96 L, Carbon Dioxide 28.0, Anion Gap 9, BUN 57 H, Creatinine 4.76 H, Estim Creat Clear Calc 12.86, Est GFR (MDRD) Af Amer 15 L, Est GFR (MDRD) Non-Af 12 L, BUN/Creatinine Ratio 12.0, Glucose 148 H, Hemoglobin A1c 9.0 H, Calcium 8.6 04/16/24 06:18: POC Glucose 142 H 04/16/24 16:25: POC Glucose 266 H Micro: Microbiology 04/14/24 11:20 Blood Culture (Wb) - Anticubital Right Blood Culture - Preliminary No growth in 48 hours. 04/16/24 07:30 Wound - Right Foot Gram Stain - Final 04/16/24 07:30 Tissue - Right Foot Gram Stain - Final 04/14/24 11:10 Wound - Right Foot Gram Stain - Final 04/14/24 11:10 Wound - Right Foot Wound Culture - Preliminary Strep anginosus 04/15/24 05:30 Wound - Right Foot Skin and Soft Tissue MRSA/MSSA (PCR - Final Radiography Diagnostic Testing: Radiology Impression Ankle Brachial Index 04/14/24 13:38 Interpretation Summary Right ARN not able to be obtained due to non-compressible vessels. Doppler/PVR waveforms of the right ankle moderately diminished at rest. TBI and digit waveforms not obtained. Left RAN 0.64, moderate arterial insufficiency. Doppler/PVR waveforms of the left ankle moderately diminished at rest. Ordering Physician: Jayla Osuna Referring Physician: Umang Yan Performed By: Anne-Marie Monzon RVT Lower Extremity MRI 04/16/24 09:15 IMPRESSION: No evidence of osteomyelitis. Ulceration plantar to the first metatarsal head with mild air in the plantar soft tissues. Extensive cellulitis and myositis of the right foot. Electronically Signed: Zulma Alatorre MD at 15:54 EST Reading Location ID and State: [address] [place] [address] Tel , Service support , Physical Exam Const alert, oriented x3 and no apparent distress General Appearance: cooperative, well kempt and well developed Orientation / Consciousness: awake, oriented to person, oriented to place and oriented to time HEENT normocephalic, head/scalp atraumatic and moist oral mucous membranes Eyes PERRL, EOMs intact bilaterally and conjunctivae normal Neck supple, no JVD, thyroid normal and no carotid bruits General: trachea midline Resp normal respiratory effort, no retractions, no use of accessory muscles and clear to auscultation bilaterally Auscultation: Negative for rales, rhonchi or wheezes Cardio regular rate, regular rhythm, S1 normal heart sound, S2 normal heart sound, no murmurs, no rub and no gallops GI normal to inspection, nondistended, normoactive bowel sounds, soft to palpation, non-tender and non-distended Extremity Extremity Narrative: Patient's right foot is bandaged with surgical dressing, this was not removed for examination of the foot Skin no rashes or lesions noted General Skin Exam: no breakdown Neuro oriented x3, CN's II-XII intact bilaterally, moves all extremities and no focal motor deficits Sensorium / Orientation: awake and alert Speech: speech normal Psych affect normal Assessment & Plan Assessment/Plan (1) Cellulitis of right lower limb: PLAN: Plan 1. 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-again podiatry feels that the patient does not need surgery at this time, he will be followed up as an outpatient #3 type 2 diabetes under poor control-patient's A1c was 9, complicates care, management, recovery, and prognosis, blood sugars would be monitored and sliding scale insulin will be administered as needed #4 end-stage renal disease on dialysis-patient will undergo dialysis tomorrow, nephrology participating in his care #5 diabetic neuropathy-complicates care, management, recovery, and prognosis Total clinical time spent by myself addressing the patient's medical issues, reviewing all of his data, and collaborating with patient's care team: 35-minute Charges/Coding Visit Charges Inpatient E&M: 38959 Subs Hosp L2
[2024-04-16 22:04] LABS: Bedside Glucose 273 mg/dL (74-106)
[2024-04-16] MEDS: Acetaminophen 325 MG Tablet 650 MG PO (23:13)
[2024-04-17 06:00] VITALS: BMI 31.0
[2024-04-17 06:12] VITALS: BP 123/49; PULSE 65; RESP 18; TEMP 36.8; O2SAT 92
[2024-04-17] MEDS: Nystatin Powder 15gm Bottle 1 APPLIC TOPICAL ×3 (06:18→22:00)
[2024-04-17] MEDS: Menthol/Lanolin/Calamine/Znox 113 GM Tube 1 APPLIC TOPICAL ×3 (06:19→22:01)
[2024-04-17 07:17] LABS: Absolute Lymphocyte Count 2.01 X10^3/uL (0.83-4.51); Absolute Neutrophil Count 11.4 X10^3/uL (2.0-7.7); Basophil# 0.03 X10^3/uL; Basophil% 0.2 % (0-1); Eosinophil# 0.13 X10^3/uL; Eosinophils% 0.9 % (0-5); Hematocrit 32.2 % (40-54); Hemoglobin 9.7 g/dL (13.0-16.5); Lymphocyte # 2.01 X10^3/ul (0.83-4.51); Lymphocyte % 13.4 % (19-41); Mean Corp Hgb Conc 30.1 g/dL (32-36); Mean Corpuscular Hgb 29.6 pg (27.0-32.0); Mean Corpuscular Volume 98.2 fL (80-94); Mean Platelet Vol. 11.7 fl (6.2-12.0); Monocyte# 1.39 X10^3/uL; Monocyte% 9.3 % (0-10); NRBC Flagged by Analyzer 0 % (0-5); Neutrophil # 11.39 X10^3/uL (2.7-7.7); Neutrophil % 75.7 % (47-70); Platelet Count 232 K/mm3 (150-450); RBC Distribution Width CV 14.8 % (11.6-14.6); RBC Distribution Width SD 53.6 fl (35.1-43.9); Red Blood Count 3.28 M/mm3 (4.6-6.2)
[2024-04-17 07:18] LABS: Bedside Glucose 139 mg/dL (74-106)
[2024-04-17 07:45] LABS: Anion Gap 8 (5-15); BUN 58 mg/dL (7-18); BUN/Creat Ratio 14.9 RATIO (10-20); Calcium,Total 8.7 mg/dL (8.5-10.1); Chloride 99 mmol/L (98-107); Creatinine, Serum 3.88 mg/dL (0.70-1.30); EST Glomerular Filtration Rate 16 mL/min (>60); Est Glom Filt Rate - Afr Amer 19 mL/min (>60); Estimated Creatinine Clearance 15.55 ml/min; Glucose 139 mg/dL (74-106); Sodium Level 133 mmol/L (136-145)
[2024-04-17] MEDS: Aspirin E.C. 81 MG Tablet PO (09:11)
[2024-04-17] MEDS: DAKIN'S SOL HALF STRENGTH (=0.25%) TOPICAL (09:11)
[2024-04-17] MEDS: Juven (unflavored) Packet 1 PACKET PO ×2 (09:11→16:54)
--- NOTE | 2024-04-17 09:23 | PCM.PN.SRG ---
Subjective Subjective I saw Mr. Thompson resting comfortably in bed this morning. No specific complaints. RLE is wrapped, dressings are clean and dry. Objective Data Objective Data Vital Signs: Vital Signs Temp Pulse Resp BP Pulse Ox O2 Del Method 98.2 F 65 18 123/49 H 92 Room Air 04/17/24 06:12 04/17/24 06:12 04/17/24 06:12 04/17/24 06:12 04/17/24 06:12 04/17/24 06:12 Oxygen Delivery Method Room Air Weight: 209 lb 10.554 oz Body Mass Index (BMI) 31.0 Intake & Output: Intake and Output for Last 24 Hours 04/15/24 04/16/24 04/17/24 23:59 23:59 23:59 Intake Total 1000 / 1350 1038.33 / 1038.33 550 / 550 Output Total 0 / 0 3000 / 3000 Balance 1000 / 1350 -1961.67 / -1961.67 550 / 550 Lab / Micro Data 04/17/24 06:23 04/17/24 06:23 Labs: Laboratory Results - last 24 hr 04/16/24 16:25: POC Glucose 266 H 04/16/24 21:04: POC Glucose 273 H 04/17/24 06:16: POC Glucose 139 H 04/17/24 06:23: WBC 15.0 H, RBC 3.28 L, Hgb 9.7 L, Hct 32.2 L, MCV 98.2 H, MCH 29.6, MCHC 30.1 L, RDW Std Deviation 53.6 H, RDW Coeff of Frances 14.8 H, Plt Count 232, MPV 11.7, Immature Gran % (Auto) 0.500, Neut % (Auto) 75.7 H, Lymph % (Auto) 13.4 L, [place] % (Auto) 9.3, Eos % (Auto) 0.9, Baso % (Auto) 0.2, Absolute Neuts (auto) 11.4 H, Absolute Lymphs (auto) 2.01, Nucleated RBC % 0, Sodium 133 L, Potassium 4.0, Chloride 99, Carbon Dioxide 27.0, Anion Gap 8, BUN 58 H, Creatinine 3.88 H, Estim Creat Clear Calc 15.55, Est GFR (MDRD) Af Amer 19 L, Est GFR (MDRD) Non-Af 16 L, BUN/Creatinine Ratio 14.9, Glucose 139 H, Calcium 8.7 Micro: Microbiology 04/16/24 07:30 Wound - Right Foot Gram Stain - Final 04/16/24 07:30 Wound - Right Foot Wound Culture - Preliminary GPC Poss Enterococcus sp 04/16/24 07:30 Tissue - Right Foot Gram Stain - Final 04/16/24 07:30 Tissue - Right Foot Wound Culture - Preliminary GPC Poss Enterococcus sp 04/14/24 11:20 Blood Culture (Wb) - Anticubital Right Blood Culture - Preliminary No growth in 48 hours. 04/14/24 11:10 Wound - Right Foot Gram Stain - Final 04/14/24 11:10 Wound - Right Foot Wound Culture - Preliminary Strep anginosus 04/15/24 05:30 Wound - Right Foot Skin and Soft Tissue MRSA/MSSA (PCR - Final Radiography Diagnostic Testing: Radiology Impression Ankle Brachial Index 04/14/24 13:38 Interpretation Summary Right RAN not able to be obtained due to non-compressible vessels. Doppler/PVR waveforms of the right ankle moderately diminished at rest. TBI and digit waveforms not obtained. Left RAN 0.64, moderate arterial insufficiency. Doppler/PVR waveforms of the left ankle moderately diminished at rest. Ordering Physician: Jayla Osuna Referring Physician: Umang Yan Performed By: Anne-Marie Monzon RVT Lower Extremity MRI 04/16/24 09:15 IMPRESSION: No evidence of osteomyelitis. Ulceration plantar to the first metatarsal head with mild air in the plantar soft tissues. Extensive cellulitis and myositis of the right foot. Electronically Signed: Zulma Alatorre MD at 15:54 EST , Physical Exam Const alert, oriented x3 and no apparent distress General Appearance: cooperative HEENT Head and Scalp: normocephalic and atraumatic Eyes EOMs intact bilaterally General Eye: normal appearance of both eyes Neck full ROM General: trachea midline Resp normal respiratory effort and no use of accessory muscles Effort and Inspection: Negative for labored, stridor or audible wheezes Cardio regular rate and regular rhythm Peripheral Pulses: brachial pulses present, radial pulses present, femoral pulses present and popliteal pulses present Back/Spine Cervical Spine: cervical ROM normal Extremity full ROM, normal capillary refill and no clubbing, cyanosis or edema Skin no rashes or lesions noted Neuro oriented x3, CN's II-XII intact bilaterally, no focal motor deficits and no sensory deficits noted Psych thought process normal, cooperative, affect normal, speech normal and activity/motor behavior normal Assessment & Plan Assessment/Plan (1) 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 I discussed with him angiogram procedure details including risks, benefits, and recovery. He is agreeable to proceed. 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 Continue ASA, no need to hold for procedure. NPO after midnight. Charges/Coding Visit Charges Inpatient E&M: 71782 Subs Hosp L1
[2024-04-17] MEDS: Piperacil/Tazobactam 3.375 GM in 0.9% Normal Saline (50mL MB+) 50 ML IV ×2 (09:31→22:01)
[2024-04-17 09:53] VITALS: BP 135/60; PULSE 64; RESP 12; TEMP 36.9; O2SAT 93
--- NOTE | 2024-04-17 10:27 | PCM.PN.ID ---
Physical Exam Narrative Feeling better, mild pain in foot, no fever Const alert and no apparent distress General Appearance: cooperative Resp normal air movement and clear to auscultation bilaterally Cardio regular rate and regular rhythm GI soft to palpation, non-tender and non-distended Skin Skin Narrative: R foot wrapped ID ID: Route of nutrition/ use of supplements: [] Nutritional Intake: [] IV Site: [] Lozano Catheter: [] Assessment & Plan Assessment/Plan (1) Diabetic infection of right foot: PLAN: MRI showed no osteo, narrow to vanc/unasyn. Plan on discharge on 10 days po doxy 100mg bid and augmentin 250mg bid. Final plan may change depending on further cx data. Will follow, d/w primary (2) Chronic kidney disease, stage V requiring chronic dialysis:
--- NOTE | 2024-04-17 10:34 | CASEMGMT ---
Discharge Planning A list of?SNF providers including quality and resource use data and consistent with the patient's preferred geographic region, medical needs, and insurance network was created in [employer] Guide.? This list was provided to the SW. Alanna Gaston Discharge Planning Asst.
--- NOTE | 2024-04-17 10:48 | PN.RENAL_ITS ---
Subjective Subjective Resting in bed. No complaints. No overnight events. Objective Data Objective Data Vital Signs: Vital Signs Temp Pulse Resp BP Pulse Ox O2 Del Method 98.4 F 64 12 135/60 H 93 Room Air 04/17/24 09:53 04/17/24 09:53 04/17/24 09:53 04/17/24 09:53 04/17/24 09:53 04/17/24 09:53 Oxygen Delivery Method Room Air Weight: 95.1 kg Body Mass Index (BMI) 31.0 Intake & Output: Intake and Output for Last 24 Hours 04/15/24 04/16/24 04/17/24 23:59 23:59 23:59 Intake Total 1000 / 1350 1038.33 / 1038.33 550 / 550 Output Total 0 / 0 3000 / 3000 Balance 1000 / 1350 -1961.67 / -1961.67 550 / 550 Lab / Micro Data 04/17/24 06:23 04/17/24 06:23 Labs: Laboratory Results - last 24 hr 04/16/24 16:25: POC Glucose 266 H 04/16/24 21:04: POC Glucose 273 H 04/17/24 06:16: POC Glucose 139 H 04/17/24 06:23: WBC 15.0 H, RBC 3.28 L, Hgb 9.7 L, Hct 32.2 L, MCV 98.2 H, MCH 29.6, MCHC 30.1 L, RDW Std Deviation 53.6 H, RDW Coeff of Frances 14.8 H, Plt Count 232, MPV 11.7, Immature Gran % (Auto) 0.500, Neut % (Auto) 75.7 H, Lymph % (Auto) 13.4 L, [place] % (Auto) 9.3, Eos % (Auto) 0.9, Baso % (Auto) 0.2, Absolute Neuts (auto) 11.4 H, Absolute Lymphs (auto) 2.01, Nucleated RBC % 0, Sodium 133 L, Potassium 4.0, Chloride 99, Carbon Dioxide 27.0, Anion Gap 8, BUN 58 H, C reatinine 3.88 H, Estim Creat Clear Calc 15.55, Est GFR (MDRD) Af Amer 19 L, Est GFR (MDRD) Non-Af 16 L, BUN/Creatinine Ratio 14.9, Glucose 139 H, Calcium 8.7 Micro: Microbiology 04/16/24 07:30 Wound - Right Foot Gram Stain - Final 04/16/24 07:30 Wound - Right Foot Wound Culture - Preliminary GPC Poss Enterococcus sp 04/16/24 07:30 Tissue - Right Foot Gram Stain - Final 04/16/24 07:30 Tissue - Right Foot Wound Culture - Preliminary GPC Poss Enterococcus sp 04/14/24 11:20 Blood Culture (Wb) - Anticubital Right Blood Culture - Preliminary No growth in 48 hours. 04/14/24 11:10 Wound - Right Foot Gram Stain - Final 04/14/24 11:10 Wound - Right Foot Wound Culture - Preliminary Strep anginosus 04/15/24 05:30 Wound - Right Foot Skin and Soft Tissue MRSA/MSSA (PCR - Final Radiography Diagnostic Testing: Radiology Impression Ankle Brachial Index 04/14/24 13:38 Interpretation Summary Right RAN not able to be obtained due to non-compressible vessels. Doppler/PVR waveforms of the right ankle moderately diminished at rest. TBI and digit waveforms not obtained. Left RAN 0.64, moderate arterial insufficiency. Doppler/PVR waveforms of the left ankle moderately diminished at rest. Ordering Physician: Jayla Osuna Referring Physician: Umang Yan Performed By: Anne-Marie Monzon RVT Lower Extremity MRI 04/16/24 09:15 IMPRESSION: No evidence of osteomyelitis. Ulceration plantar to the first metatarsal head with mild air in the plantar soft tissues. Extensive cellulitis and myositis of the right foot. Electronically Signed: Zulma Alatorre MD at 15:54 EST , Physical Exam Narrative AAO3 s1s2, RRR Lung sounds clear. No wheezes, rhonchi or rales noted abdomen soft, nontender Edema to bilateral lower legs AV fistula left forearm positive thrill and bruit Assessment & Plan Assessment/Plan (1) ESRD (end stage renal disease): PLAN: - ESRD; on hemodialysis 3 days weekly. Outpatient hemodialysis schedule is Tuesday. Schedule rearranged this week due to holiday. Patient dialyzed yesterday. 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 Patient tolerated 3 L fluid off with dialysis yesterday. Will attempt to remove fluid with dialysis again tomorrow. -Right foot ulcer/cellulitis. Had debridement of right foot. ID following for antibiotics. MRI no evidence of osteo. Vascular following as well, scheduled for angiogram tomorrow. -Anemia of chronic disease; will follow hemoglobin trends patient receives CRYSTAL and iron at [facility]
--- NOTE | 2024-04-17 11:50 | CASEMGMT ---
Discharge Planning A list of HH providers including quality and resource use data and consistent with the patient's preferred geographic region, medical needs, and insurance network was created in [employer].? This list was provided to the RN PROSPER. Alanna Gaston, Discharge Planning Asst
[2024-04-17] MEDS: Insulin Lispro 100 UNIT/ML INSULN.PEN SC ×3 (12:34→22:00)
[2024-04-17] MEDS: Ensure Clear 120 ML Liquid PO ×2 (12:37→16:53)
[2024-04-17 12:56] LABS: Bedside Glucose 219 mg/dL (74-106)
[2024-04-17] MEDS: Acetaminophen 325 MG Tablet 650 MG PO (14:48)
[2024-04-17] MEDS: oxyCODONE 5 MG Tablet 2.5 MG PO (16:51)
[2024-04-17] MEDS: Insulin Glargine-YFGN 100 UNIT/ML Pen 25 UNIT SC (16:52)
[2024-04-17 17:01] VITALS: BP 136/60; PULSE 53; RESP 14; TEMP 37.3; O2SAT 95
--- NOTE | 2024-04-17 18:27 | PN.HOSP_ITS ---
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) Type 2 diabetes mellitus with foot ulcer (04/14/24) Type 2 diabetes mellitus with other skin complications (04/14/24) Atherosclerosis of [place] arteries of right leg with ulceration of other part of foot (04/14/24) Atherosclerosis of [place] arteries of other extremities with ulceration (04/14/24) Cellulitis of right lower limb (04/14/24) Local infection of the skin and subcutaneous tissue, unspecified (04/14/24) Non-pressure chronic ulcer of other part of unspecified foot with unspecified severity (04/14/24) Non-pressure chronic ulcer of other part of right foot with fat layer exposed (04/14/24) End stage renal disease (04/14/24) Dependence on renal dialysis (04/14/24) Subjective Subjective Patient was seen and examined today, he is scheduled to have a lower extremity arteriogram performed tomorrow on his right leg. Patient has no complaints to this examiner today Objective Data Objective Data Vital Signs: Vital Signs Temp Pulse Resp BP Pulse Ox O2 Del Method 99.1 F 53 L 14 136/60 H 95 Room Air 04/17/24 17:01 04/17/24 17:01 04/17/24 17:01 04/17/24 17:01 04/17/24 17:01 04/17/24 17:01 Oxygen Delivery Method Room Air Weight: 95.1 kg Body Mass Index (BMI) 31.0 Intake & Output: Intake and Output for Last 24 Hours 04/15/24 04/16/24 04/17/24 23:59 23:59 23:59 Intake Total 1000 / 1350 1038.33 / 1038.33 1040 / 1040 Output Total 0 / 0 3000 / 3000 Balance 1000 / 1350 -1961.67 / -1961.67 1040 / 1040 Lab / Micro Data 04/17/24 06:23 04/17/24 06:23 Labs: Laboratory Results - last 24 hr 04/16/24 21:04: POC Glucose 273 H 04/17/24 06:16: POC Glucose 139 H 04/17/24 06:23: WBC 15.0 H, RBC 3.28 L, Hgb 9.7 L, Hct 32.2 L, MCV 98.2 H, MCH 29.6, MCHC 30.1 L, RDW Std Deviation 53.6 H, RDW Coeff of Frances 14.8 H, Plt Count 232, MPV 11.7, Immature Gran % (Auto) 0.500, Neut % (Auto) 75.7 H, Lymph % (Auto) 13.4 L, [place] % (Auto) 9.3, Eos % (Auto) 0.9, Baso % (Auto) 0.2, Absolute Neuts (auto) 11.4 H, Absolute Lymphs (auto) 2.01, Nucleated RBC % 0, Sodium 133 L, Potassium 4.0, Chloride 99, Carbon Dioxide 27.0, Anion Gap 8, BUN 58 H, C reatinine 3.88 H, Estim Creat Clear Calc 15.55, Est GFR (MDRD) Af Amer 19 L, Est GFR (MDRD) Non-Af 16 L, BUN/Creatinine Ratio 14.9, Glucose 139 H, Calcium 8.7 04/17/24 12:33: POC Glucose 219 H Micro: Microbiology 04/16/24 07:30 Wound - Right Foot Gram Stain - Final 04/16/24 07:30 Wound - Right Foot Wound Culture - Preliminary GPC Poss Enterococcus sp 04/16/24 07:30 Tissue - Right Foot Gram Stain - Final 04/16/24 07:30 Tissue - Right Foot Wound Culture - Preliminary GPC Poss Enterococcus sp 04/14/24 11:20 Blood Culture (Wb) - Anticubital Right Blood Culture - Preliminary No growth in 48 hours. 04/14/24 11:10 Wound - Right Foot Gram Stain - Final 04/14/24 11:10 Wound - Right Foot Wound Culture - Preliminary Strep anginosus 04/15/24 05:30 Wound - Right Foot Skin and Soft Tissue MRSA/MSSA (PCR - Final Physical Exam Narrative alert, oriented x3 and no apparent distress General Appearance: cooperative, well kempt and well developed Orientation / Consciousness: awake, oriented to person, oriented to place and oriented to time HEENT normocephalic, head/scalp atraumatic and moist oral mucous membranes Eyes PERRL, EOMs intact bilaterally and conjunctivae normal Neck supple, no JVD, thyroid normal and no carotid bruits General: trachea midline Resp normal respiratory effort, no retractions, no use of accessory muscles and clear to auscultation bilaterally Auscultation: Negative for rales, rhonchi or wheezes Cardio regular rate, regular rhythm, S1 normal heart sound, S2 normal heart sound, no murmurs, no rub and no gallops GI normal to inspection, nondistended, normoactive bowel sounds, soft to palpation, non-tender and non-distended Extremity Extremity Narrative: Patient's right foot is bandaged with surgical dressing, this was not removed for examination of the foot Skin no rashes or lesions noted General Skin Exam: no breakdown Neuro oriented x3, CN's II-XII intact bilaterally, moves all extremities and no focal motor deficits Sensorium / Orientation: awake and alert Speech: speech normal Psych affect normal Assessment & Plan Assessment/Plan (1) Neuropathic ulcer of right foot with fat layer exposed: (2) Cellulitis of right lower limb: PLAN: Plan 1. Right foot cellulitis-cultures are pending at this time, infectious diseases is participating in his care, podiatry is participating in his care, patient will undergo a right lower extremity angiogram tomorrow, it appears the patient may be able to be discharged on oral antibiotics when he goes home. #2 neuropathic ulcer of the right foot-again podiatry feels that the patient does not need surgery at this time, he will be followed up as an outpatient #3 type 2 diabetes under poor control-patient's A1c was 9, complicates care, management, recovery, and prognosis, blood sugars would be monitored and sliding scale insulin will be administered as needed #4 end-stage renal disease on dialysis-patient will undergo dialysis tomorrow, nephrology participating in his care #5 diabetic neuropathy-complicates care, management, recovery, and prognosis Total clinical time spent by myself addressing the patient's medical issues, reviewing all of his data, and collaborating with patient's care team: 35-minute Charges/Coding Visit Charges Inpatient E&M: 92560 Subs Hosp L2
[2024-04-17 21:41] VITALS: BP 161/54; PULSE 54; RESP 18; TEMP 37.2; O2SAT 96
[2024-04-17 22:34] LABS: Bedside Glucose 337 mg/dL (74-106)
[2024-04-18] VITALS (23 sets, daily range): BP systolic 105–291; BP diastolic 40–82; PULSE 49–74; RESP 12–18; TEMP 36.1–37.6; O2SAT 92–96; BMI 33.0; BMI 31.8; BMI 31.7
[2024-04-18 00:18] LABS: Bedside Glucose 313 mg/dL (74-106)
[2024-04-18] MEDS: Acetaminophen 325 MG Tablet 650 MG PO (04:39)
[2024-04-18] MEDS: Menthol/Lanolin/Calamine/Znox 113 GM Tube 1 APPLIC TOPICAL ×2 (06:29→22:10)
[2024-04-18] MEDS: Nystatin Powder 15gm Bottle 1 APPLIC TOPICAL ×2 (06:29→22:10)
[2024-04-18 06:47] LABS: Bedside Glucose 132 mg/dL (74-106)
[2024-04-18] MEDS: Vancomycin Trough/Random Due 1 LAB MC (07:00)
[2024-04-18] MEDS: 0.9% Normal Saline 1,000 ML IV.SOLN. 1000 ML OPERA.SITE (07:38)
[2024-04-18] MEDS: PureFlow B 3K Dialysis Soln 1 BAG 6 BAG PF (07:39)
[2024-04-18 07:41] LABS: Absolute Lymphocyte Count 1.73 X10^3/uL (0.83-4.51); Absolute Neutrophil Count 11.4 X10^3/uL (2.0-7.7); Basophil# 0.05 X10^3/uL; Basophil% 0.3 % (0-1); Eosinophil# 0.21 X10^3/uL; Eosinophils% 1.4 % (0-5); Hematocrit 30.8 % (40-54); Hemoglobin 9.5 g/dL (13.0-16.5); Lymphocyte # 1.73 X10^3/ul (0.83-4.51); Lymphocyte % 11.7 % (19-41); Mean Corp Hgb Conc 30.8 g/dL (32-36); Mean Corpuscular Hgb 29.8 pg (27.0-32.0); Mean Corpuscular Volume 96.6 fL (80-94); Mean Platelet Vol. 11.7 fl (6.2-12.0); Monocyte# 1.24 X10^3/uL; Monocyte% 8.4 % (0-10); NRBC Flagged by Analyzer 0 % (0-5); Neutrophil # 11.38 X10^3/uL (2.7-7.7); Neutrophil % 77.3 % (47-70); Platelet Count 250 K/mm3 (150-450); RBC Distribution Width CV 14.8 % (11.6-14.6); RBC Distribution Width SD 51.9 fl (35.1-43.9); Red Blood Count 3.19 M/mm3 (4.6-6.2); White Blood Count 14.7 K/mm3 (4.4-11.0)
--- NOTE | 2024-04-18 07:46 | PN_ITS ---
Subjective Subjective Patient seen early this a.m. resting in bed. Wound nurse present for assistance in dressing change. Nursing staff states he will be going for angio this afternoon. Patient states overall he is feeling well. Continues to deny pain to the foot. Denies further complaints. Objective Data Objective Data Vital Signs: Vital Signs Temp Pulse Resp BP Pulse Ox O2 Del Method 99.6 F H 49 L 18 154/58 H 93 Room Air 04/18/24 04:32 04/18/24 04:32 04/18/24 04:32 04/18/24 04:32 04/18/24 04:32 04/18/24 04:32 Oxygen Delivery Method Room Air Weight: 101.1 kg Body Mass Index (BMI) 33.0 Intake & Output: Intake and Output for Last 24 Hours 04/16/24 04/17/24 04/18/24 23:59 23:59 23:59 Intake Total 1038.33 / 1038.33 1400 / 1800 450 / 450 Output Total 3000 / 3000 2 / 2 Balance -1.67 / -1.67 1398 / 1798 450 / 450 Lab / Micro Data 04/18/24 06:13 04/17/24 06:23 Labs: Laboratory Results - last 24 hr 04/17/24 12:33: POC Glucose 219 H 04/17/24 16:39: POC Glucose 313 H 04/17/24 21:59: POC Glucose 337 H 04/18/24 06:13: WBC 14.7 H, RBC 3.19 L, Hgb 9.5 L, Hct 30.8 L, MCV 96.6 H, MCH 29.8, MCHC 30.8 L, RDW Std Deviation 51.9 H, RDW Coeff of Frances 14.8 H, Plt Count 250, MPV 11.7, Immature Gran % (Auto) 0.900, Neut % (Auto) 77.3 H, Lymph % (Auto) 11.7 L, [place] % (Auto) 8.4, Eos % (Auto) 1.4, Baso % (Auto) 0.3, Absolute Neuts (auto) 11.4 H, Absolute Lymphs (auto) 1.73, Nucleated RBC % 0 04/18/24 06:28: POC Glucose 132 H Micro: Microbiology 04/16/24 07:30 Wound - Right Foot Gram Stain - Final 04/16/24 07:30 Wound - Right Foot Wound Culture - Preliminary GPC Poss Enterococcus sp 04/16/24 07:30 Tissue - Right Foot Gram Stain - Final 04/16/24 07:30 Tissue - Right Foot Wound Culture - Preliminary GPC Poss Enterococcus sp 04/14/24 11:20 Blood Culture (Wb) - Anticubital Right Blood Culture - Preliminary No growth in 48 hours. 04/14/24 11:10 Wound - Right Foot Gram Stain - Final 04/14/24 11:10 Wound - Right Foot Wound Culture - Preliminary Strep anginosus 04/15/24 05:30 Wound - Right Foot Skin and Soft Tissue MRSA/MSSA (PCR - Final Physical Exam Const alert, oriented x3 and no apparent distress Constitutional Narrative: Nontoxic-appearing General Appearance: cooperative HEENT normocephalic Eyes General Eye: normal appearance of both eyes Neck General: normal visual inspection Lymph Lymphatic: no lymphadenopathy noted and no lymphedema noted Resp normal respiratory effort Cardio regular rate and regular rhythm Extremity no calf tenderness Extremity Narrative: Left lower extremity: Vascular: DP and PT pulses nonpalpable. CFT is greater than 5 seconds/delayed to digits. Normal temperature gradient. Hair growth is absent to digits/foot. Neurologic: Gross sensation intact. Protective sensation absent secondary to diabetic peripheral polyneuropathy Musculoskeletal: Muscle strength 5 of 5 age-appropriate. Decreased range of motion of the first metatarsophalangeal joint dorsiflexion without pain or crepitus. Decreased range of motion of the ankle joint in dorsiflexion with the knee extended without pain or crepitus. No pain to palpation about the calf. Dermatologic: Skin is mildly xerotic secondary to peripheral vascular disease with likely autonomic neuropathy. Skin otherwise unremarkable. Right lower extremity: Vascular: DP and PT pulses nonpalpable. CFT is greater than 5 seconds/delayed to digits. Normal temperature gradient. Hair growth absent to digits/foot. Neurologic: Gross sensation intact. Protective sensation absent secondary to diabetic peripheral polyneuropathy Musculoskeletal: Muscle strength 5 of 5 age-appropriate. Decreased range of motion of the first metatarsophalangeal joint in dorsiflexion without pain or crepitus. Decreased range of motion of the ankle joint dorsiflexion with the knee extended without pain or crepitus. No pain to palpation about the calf. Dermatological: There is an ulceration plantar to the first metatarsal head with necrotic eschar and dense yellow fibrotic tissue. There is some eschar secondary to tissue destruction along the medial aspect of the first metatarsal head secondary to infection and ischemia. There is erythema and cellulitic like appearance of the foot with improvement/receding of erythema on IV antibiotic. Predebridement ulceration measures 3.0 cm x 1.7 cm with dense yellow fibrotic tissue and some surrounding eschar secondary to infection and ischemic tissue . Postdebridement ulceration measures 3.1 cm x 1.8 cm x 0.3 cm. Underlying the fibrotic tissue there is no purulent drainage but there is malodor with dense, thickened, yellow nonviable fibrotic tissue. There is some tunneling of the ulceration 0.3 cm at the 3 o'clock position, 0.3 cm at the 9 o'clock position and 0.6 cm at the 6 o'clock position. No purulent drainage expressible. Skin no rashes or lesions noted, skin turgor normal and no jaundice Neuro moves all extremities Assessment & Plan Assessment/Plan (1) Cellulitis of right lower limb: (2) Neuropathic ulcer of right foot with fat layer exposed: (3) Diabetes mellitus with diabetic polyneuropathy: (4) Type 2 diabetes mellitus with foot ulcer: (5) Diabetic infection of right foot: PLAN: Plan Patient seen and evaluated Right foot: There is an ulceration plantar to the first metatarsal head with necrotic eschar and dense yellow fibrotic tissue. There is some eschar secondary to tissue destruction along the medial aspect of the first metatarsal head secondary to infection and ischemia. There is erythema and cellulitic like appearance of the foot with improvement/receding of erythema on IV antibiotic. Predebridement ulceration measures 3.0 cm x 1.7 cm with dense yellow fibrotic tissue and some surrounding eschar secondary to infection and ischemic tissue . Postdebridement ulceration measures 3.1 cm x 1.8 cm x 0.3 cm. Underlying the fibrotic tissue there is no purulent drainage but there is malodor with dense, thickened, yellow nonviable fibrotic tissue. There is some tunneling of the ulceration 0.3 cm at the 3 o'clock position, 0.3 cm at the 9 o'clock position and 0.6 cm at the 6 o'clock position. No purulent drainage expressible. WBC currently 14.7 Currently on IV Vanco/Unasyn HgbA1c 9% on 04/16/2024 Cultures: MRSA PCR negative; Staph aureus protein A PCR negative; blood culture negative; wound swab demonstrating strep anginosus; tissue culture demonstrating possible Enterococcus sp Radiograph right foot: There is some soft tissue gas possibly correlating to infection plantar first metatarsal, negative for osteomyelitis. MRI was ordered for further evaluation of right foot demonstrating: Soft tissue cellulitis and myositis. There is some soft tissue air about the ulceration secondary to prior debridement. No abscess formation. No evidence of osteomyelitis. LEAS performed 04/16/2024: Left lower extremity demonstrates monophasic DP and PT pulses. PT indices 0.64, DP noncompressible, digit 0.44. Moderate arterial disease. Right lower extremity demonstrates monophasic DP and PT pulses. PT indices noncompressible, DP noncompressible. Following verbal permission right foot was cleansed with Betadine about the ulcerative site and site did undergo sharp excisional debridement down to the level of the subcutaneous tissue utilizing a #15 blade and forceps. 100% of the ulceration was debrided. Debridement consisted of removal of necrotic tissue/eschar, fibrous, devitalized subcutaneous, biofilm, slough. No purulent drainage was encountered during debridement nor expressible. There was some malodor during debridement noted of the tissue. No local anesthetic utilized secondary to diabetic peripheral polyneuropathy. There was minimal bleeding of the tissue during debridement. Site was copiously irrigated with 60 mL Dakin's including the undermining pockets at the positions noted above with a 20 mL syringe with an 18-gauge needle followed by an additional irrigation of 250 mL normal sterile saline. Postdebridement ulceration measured 3.1 cm x 1.8 cm x 0.3 cm. Dakin's wet to dry dressing applied to ulcerative site. Dressing to be changed daily. He is to remain nonweightbearing to the right lower extremity with the assistance of walker/wheelchair. If weightbearing status poses problem he will be permitted to bear weight within a short CAM boot to the right foot with offloading padding about the first metatarsal head. Medicine following for medical management, they are greatly appreciated Infectious disease following for antibiotic management. Plan to DC with oral doxycycline 100 mg twice daily and Augmentin 250 mg twice daily x 10 days per ID Vascular consulted to optimize blood flow to aid in healing of right foot ulceration. Plan for angio Tuesday per vascular. Wound nurse following for assistance in dressing changes Patient's MRI was negative for osteomyelitis. Following angio patient may be discharged with continued follow in the wound care center with me for additional debridement and applications of advanced wound care product. Warren Mendoza Jr. D.P.M. [facility] [phone]
[2024-04-18 08:38] LABS: Vancomycin, Random Level 16.5 ug/mL (0.0-15.0)
[2024-04-18 08:42] LABS: Anion Gap 10 (5-15); BUN 83 mg/dL (7-18); BUN/Creat Ratio 16.6 RATIO (10-20); Calcium,Total 8.5 mg/dL (8.5-10.1); Chloride 98 mmol/L (98-107); EST Glomerular Filtration Rate 12 mL/min (>60); Est Glom Filt Rate - Afr Amer 14 mL/min (>60); Estimated Creatinine Clearance 12.43 ml/min; Glucose 136 mg/dL (74-106); Potassium 4.1 mmol/L (3.5-5.1); Sodium Level 132 mmol/L (136-145)
--- NOTE | 2024-04-18 11:29 | PN.RENAL_ITS ---
Subjective Subjective Seen on dialysis today. No new complaints. For angiogram later today. Objective Data Objective Data Vital Signs: Vital Signs Temp Pulse Resp BP Pulse Ox O2 Del Method 98.3 F 67 15 105/72 94 Room Air 04/18/24 07:21 04/18/24 10:51 04/18/24 10:51 04/18/24 10:51 04/18/24 07:21 04/18/24 10:51 Oxygen Delivery Method Room Air Weight: 101.1 kg Body Mass Index (BMI) 33.0 Intake & Output: Intake and Output for Last 24 Hours 04/16/24 04/17/24 04/18/24 23:59 23:59 23:59 Intake Total 1038.33 / 1038.33 1400 / 1800 450 / 450 Output Total 3000 / 3000 2 / 2 Balance -1960. / - 1398 / 1798 450 / 450 Lab / Micro Data 04/18/24 06:13 04/18/24 06:13 Labs: Laboratory Results - last 24 hr 04/17/24 12:33: POC Glucose 219 H 04/17/24 16:39: POC Glucose 313 H 04/17/24 21:59: POC Glucose 337 H 04/18/24 06:13: WBC 14.7 H, RBC 3.19 L, Hgb 9.5 L, Hct 30.8 L, MCV 96.6 H, MCH 29.8, MCHC 30.8 L, RDW Std Deviation 51.9 H, RDW Coeff of Frances 14.8 H, Plt Count 250, MPV 11.7, Immature Gran % (Auto) 0.900, Neut % (Auto) 77.3 H, Lymph % (Auto) 11.7 L, [place] % (Auto) 8.4, Eos % (Auto) 1.4, Baso % (Auto) 0.3, Absolute Neuts (auto) 11.4 H, Absolute Lymphs (auto) 1.73, Nucleated RBC % 0, Sodium 132 L, Potassium 4.1, Chloride 98, Carbon Dioxide 24.0, Anion Gap 10, BUN 83 H, C reatinine 5.00 H, Estim Creat Clear Calc 12.43, Est GFR (MDRD) Af Amer 14 L, Est GFR (MDRD) Non-Af 12 L, BUN/Creatinine Ratio 16.6, Glucose 136 H, Calcium 8.5, R andom Vancomycin 16.5 H 04/18/24 06:28: POC Glucose 132 H Micro: Microbiology 04/14/24 11:10 Wound - Right Foot Gram Stain - Final 04/14/24 11:10 Wound - Right Foot Wound Culture - Preliminary Strep anginosus 04/16/24 07:30 Wound - Right Foot Gram Stain - Final 04/16/24 07:30 Wound - Right Foot Wound Culture - Preliminary Strep anginosus 04/16/24 07:30 Tissue - Right Foot Gram Stain - Final 04/16/24 07:30 Tissue - Right Foot Wound Culture - Preliminary Strep anginosus 04/14/24 11:20 Blood Culture (Wb) - Anticubital Right Blood Culture - Preliminary No growth in 48 hours. 04/15/24 05:30 Wound - Right Foot Skin and Soft Tissue MRSA/MSSA (PCR - Final Physical Exam Narrative AAO3 s1s2, RRR Lung sounds clear. No wheezes, rhonchi or rales noted abdomen soft, nontender Edema to bilateral lower legs AV fistula left forearm positive thrill and bruit Assessment & Plan Assessment/Plan (1) ESRD (end stage renal disease): PLAN: - ESRD; on hemodialysis 3 days weekly. Outpatient hemodialysis schedule is Tuesday. Schedule rearranged this week due to holiday. HD today. see orders -Right foot ulcer/cellulitis. Had debridement of right foot. ID following for antibiotics. MRI no evidence of osteo. Vascular following as well, scheduled for angiogram -Anemia of chronic disease; will follow hemoglobin trends patient receives CRYSTAL and iron at kidney center. now 9.7 dw staff
[2024-04-18] MEDS: Piperacil/Tazobactam 3.375 GM in 0.9% Normal Saline (50mL MB+) 50 ML IV ×2 (11:40→23:03)
[2024-04-18] MEDS: DAKIN'S SOL HALF STRENGTH (=0.25%) TOPICAL (11:46)
[2024-04-18 12:38] LABS: BUN 39 mg/dL (7-18); Creatinine, Serum 2.45 mg/dL (0.70-1.30); EST Glomerular Filtration Rate 27 mL/min (>60); Est Glom Filt Rate - Afr Amer 32 mL/min (>60); Estimated Creatinine Clearance 24.91 ml/min
--- NOTE | 2024-04-18 13:11 | PHA.PHARE_ITS ---
Consult Antibiotic Management Pharmacy has been consulted to manage selected antibiotic: Vancomycin Type of Intervention Type of Consult: Follow-up Suspected Infection Suspected Infection: Skin/Soft tissue Prior Doses of Antibiotics Prior Doses of Antibiotics Received/Current Regimen: the most recent dose was 750mg IV x1 after HD on 04/16/24 Labs Labs: Sodium 132 mmol/L (136-145) L 04/18/24 06:13 Potassium 4.1 mmol/L (3.5-5.1) 04/18/24 06:13 Chloride 98 mmol/L (98-107) 04/18/24 06:13 Carbon Dioxide 24.0 mmol/L (21.0-32.0) 04/18/24 06:13 Anion Gap 10 (5-15) 04/18/24 06:13 BUN 39 mg/dL (7-18) H 04/18/24 11:15 Creatinine 2.45 mg/dL (0.70-1.30) H 04/18/24 11:15 Est GFR (MDRD) Af Amer 32 mL/min (>60) L 04/18/24 11:15 Est GFR (MDRD) Non-Af 27 mL/min (>60) L 04/18/24 11:15 BUN/Creatinine Ratio 16.6 RATIO (10-20) 04/18/24 06:13 Glucose 136 mg/dL (74-106) H 04/18/24 06:13 Random Vancomycin 16.5 ug/mL (0.0-15.0) H 04/18/24 06:13 Microbiology Microbiology: Microbiology 04/14/24 11:10 Wound - Right Foot Gram Stain - Final 04/14/24 11:10 Wound - Right Foot Wound Culture - Preliminary Strep anginosus 04/16/24 07:30 Wound - Right Foot Gram Stain - Final 04/16/24 07:30 Wound - Right Foot Wound Culture - Preliminary Strep anginosus 04/16/24 07:30 Tissue - Right Foot Gram Stain - Final 04/16/24 07:30 Tissue - Right Foot Wound Culture - Preliminary Strep anginosus 04/14/24 11:20 Blood Culture (Wb) - Anticubital Right Blood Culture - Preliminary No growth in 48 hours. 04/15/24 05:30 Wound - Right Foot Skin and Soft Tissue MRSA/MSSA (PCR - Final Dosing Weight Weight used for dosin.4 kg Estimated Creatinine Clearance Estimated Creatinine Clearance: on HD Goal Trough Goal Trough: 15-20 mcg/mL Pharmacy Plan for Drug Dosing Pharmacy Plan for Drug Dosing: The vanc random level drawn prior to HD today was 16.5. Since this is between 15-20, per [facility] protocol in dosing vanc in dialysis patients, will give a dose of 500mg IV x1 after HD today. The next expected HD session after today is Tuesday so will schedule a vanc random level to be drawn pre-dialysis on that date. Pharmacy Service will continue to monitor and adjust dosing as required. Follow-Up Labs Follow-Up Labs: Trough: Vancomycin (random pre-HD) Date/Time Labs Ordered Labs to be done on [date and time ordered]: 04/21 0600
[2024-04-18] MEDS: Aspirin E.C. 81 MG Tablet PO (13:17)
--- NOTE | 2024-04-18 14:15 | CASEMGMT ---
Addendum entered by Natalie Quinn 04/18/24 15:34: Per hospitalist, to bring in boot today for pt. Hospitalist spoke with therapy who will work with pt tomorrow. If pt able to ambulate, pt can dc home. Pt is currently not on the floor. Will request in handoff for HHC to be set up Tuesday should pt dc on . Original Note: ISABEL CHENG attempted to meet with pt, pt nurse present in room and pt now taken for angiogram. Noted in therapy notes pt unable to maintain NWB status. Spoke with hospitalist regarding pt care. Will need to meet with pt for plans upon dc.
--- NOTE | 2024-04-18 16:00 | PCM.OPRPT ---
Operative Report (Standard) Operative Information Surgery/Procedure Performed: aortogram right lower extremity runoff ivus AT, TP trunk, popliteal angioplasty AT Surgeon: Earl White Date of Procedure: 04/18/24 Procedure Start Time: 14:30 Procedure Stop Time: 16:00 Pre-Operative Diagnosis: atherosclerosis with ulcer right lower extremity Post-Operative Diagnosis: same Select all DRAINS/GRAFTS/IMPLANTS that apply: None Type of Anesthesia: Local and Sedation,Conscious Estimated Blood Loss: 5 Specimen collected: No Description of surgery: HPI: Patient is an 88-year-old male with recent development of a right medial foot wound with soft tissue infection. He has been debrided at bedside and noninvasive vascular studies revealed infrapopliteal disease. This was consistent with his physical exam which revealed normal popliteal pulse. He is taken now for angiogram with possible intervention. Description of procedure: Upon obtaining form consent and verification correct patient procedure site patient was taken to the Family Physician he was positioned prepped and draped in usual sterile fashion. Time was performed with 5 sedation administered Versed and fentanyl. Skin overlying the left common femoral arteries anesthetized 1% lidocaine the vessel accessed with micropuncture needle wire under ultrasound guidance. This was exchanged for micropuncture sheath through which injection iliofemoral angiogram was performed revealing satisfactory positioning with no extravasation or dissection. Through the micropuncture sheath Bentson wire was advanced into abdominal aorta and the micropuncture sheath exchanged for short 6 Tristanian sheath. Through the 6 Tristanian sheath and Omni Flush catheter was advanced into the abdominal aorta and digital subtraction aortogram pelvic angiogram was performed. This revealed normal caliber aorta with no significant atherosclerosis on the mild diffuse calcification. The left common, internal, external iliac arteries were widely patent with no significant atherosclerosis or stenosis. The right common, internal, external iliac arteries are widely patent with atherosclerosis or stenosis. Using the Bentson wire and an LEENA catheter we navigated the contralateral iliac system and positioned the catheter in the distal external iliac artery. From this position sequential subtraction angiography the right lower extremity was performed. This revealed widely patent common femoral artery, profundofemoral artery, superficial femoral artery with diffuse calcification but no significant atherosclerotic burden or stenosis. Distally the popliteal artery was widely patent with similar diffuse calcification but no significant atherosclerotic burden or stenosis. The anterior tibial artery was patent large caliber vessel with a stenosis of greater than 75% just beyond its origin with return to normal caliber and continuous flow to the foot where it gave rise to the dorsalis pedal artery and the predominant perfusion to the pedal arch. The tibioperoneal trunk was widely patent with calcification but no stenosis. The peroneal artery was widely patent large caliber vessel with no significant atherosclerosis or stenosis and normal terminus in the distal lower leg. The posterior tibial artery was large caliber vessel with diffuse calcification and moderate stenosis in the distal third of the vessel followed by abrupt occlusion at the medial malleolus. There is no significant reconstitution of the lateral plantar artery from this vessel antegrade. It was felt that both the anterior tibial artery and the posterior tibial artery lesions could potentially be treated and improve the perfusion and aid in wound healing. A glide advantage wire was then advanced into the distal popliteal artery and the catheter and short 6 Tristanian sheath exchanged for a 6 Tristanian Rabie sheath 90 cm long which was advanced into the distal popliteal artery. The patient was in heparinized allowed to circulate for 3 minutes. Using a command 14 wire and a quick cross catheter we navigated into the posterior tibial artery advancing our wire and catheter to the distal third of the vessel. This position we engaged the top Of the occlusion which was very firm and consistent with chronic total occlusion and significant calcification. After multiple efforts were made to initiate crossing the lesion without success we felt that further damage could be created in our efforts so we abandon the posterior tibial lesion. We then withdrew our wire and catheter into the popliteal artery and navigated into the anterior tibial artery traversing the high-grade stenosis advancing the wire and catheter into the mid anterior tibial artery. The wire was withdrawn and hand-injection subtraction angiography confirmed position within the true lumen. The wire was again advanced and the catheter withdrawn. Intravascular ultrasound probe was advanced over the wire and attempted to traverse the lesion without success. The catheter was then withdrawn and a quick cross catheter readvanced and the command 14 wire exchanged for a [place] core wire. The catheter withdrawn and intravascular [place] probe was then readvanced successfully traversing the lesion. Recorded pullback was performed of the anterior tibial artery, popliteal artery. This confirmed greater than 75% stenosis of the anterior tibial artery with otherwise normal caliber vessel proximal and distal with no evidence of dissection. A 3 mm [employer] angio sculpt balloon was then advanced over the wire and inflated to nominal for 2 inflations centered on the lesion. The balloon was then withdrawn and repeat angiography revealed satisfactory resolution of the anterior tibial stenosis with no extravasation or dissection mild brisk unimpeded blood flow across the proximal portion of the vessel. The long 6 Tristanian sheath then exchanged for a short 6 Tristanian sheath and a minx closure device deployed. After deployment there was hematoma submental pressure held for a prolonged period of time until satisfactory stasis was noted. The patient was then taken to the PCU for bedrest prior to return to the [facility] floor. Surgical Findings: See above. 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
[2024-04-18 16:02] LABS: ACT Activated Clotting Time 222 sec (74-137)
[2024-04-18] MEDS: Vancomycin IV 500 MG/100 ML BAG 100 MG IV (16:57)
[2024-04-18] MEDS: Insulin Glargine-YFGN 100 UNIT/ML Pen 25 UNIT SC (16:57)
[2024-04-18 17:11] LABS: Bedside Glucose 123 mg/dL (74-106)
--- NOTE | 2024-04-18 18:03 | PN.HOSP_ITS ---
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 of other part of foot (04/14/24) Atherosclerosis of [place] arteries of other extremities with ulceration (04/14/24) Cellulitis of right lower limb (04/14/24) Local infection of the skin and subcutaneous tissue, unspecified (04/14/24) Non-pressure chronic ulcer of other part of unspecified foot with unspecified severity (04/14/24) Non-pressure chronic ulcer of other part of right foot with fat layer exposed (04/14/24) End stage renal disease (04/14/24) Dependence on renal dialysis (04/14/24) Subjective Subjective Patient was seen and examined today, podiatry recommended the patient be nonweightbearing on his right foot, if this is not able to be done, patient could have a boot with some offloading-I called podiatry today and they will come in this afternoon and give the patient a walking boot, physical therapy will then walk the patient tomorrow to see if he is capable of going home. That the patient is not capable of going home, he will need placement in a jail facility which could be difficult to obtain this week. Patient had a vascular procedure done today-an aortogram of the right lower extremity was performed with an angioplasty. Objective Data Objective Data Vital Signs: Vital Signs Temp Pulse Resp BP Pulse Ox O2 Del Method 97.0 F L 65 18 147/60 H 95 Room Air 04/18/24 13:12 04/18/24 17:40 04/18/24 17:40 04/18/24 17:40 04/18/24 17:40 04/18/24 17:40 Oxygen Delivery Method Room Air Weight: 97.4 kg Body Mass Index (BMI) 31.7 Intake & Output: Intake and Output for Last 24 Hours 04/16/24 04/17/24 04/18/24 23:59 23:59 23:59 Intake Total 1038.33 / 1038.33 1400 / 1800 500 / 500 Output Total 3000 / 3000 2 / 2 3700 / 3700 Balance -1961.67 / -196.67 1398 / 1798 -3200 / -3200 Lab / Micro Data 04/18/24 06:13 04/18/24 11:15 Labs: Laboratory Results - last 24 hr 04/17/24 16:39: POC Glucose 313 H 04/17/24 21:59: POC Glucose 337 H 04/18/24 06:13: WBC 14.7 H, RBC 3.19 L, Hgb 9.5 L, Hct 30.8 L, MCV 96.6 H, MCH 29.8, MCHC 30.8 L, RDW Std Deviation 51.9 H, RDW Coeff of Frances 14.8 H, Plt Count 250, MPV 11.7, Immature Gran % (Auto) 0.900, Neut % (Auto) 77.3 H, Lymph % (Auto) 11.7 L, Saline % (Auto) 8.4, Eos % (Auto) 1.4, Baso % (Auto) 0.3, Absolute Neuts (auto) 11.4 H, Absolute Lymphs (auto) 1.73, Nucleated RBC % 0, Sodium 132 L, Potassium 4.1, Chloride 98, Carbon Dioxide 24.0, Anion Gap 10, BUN 83 H, C reatinine 5.00 H, Estim Creat Clear Calc 12.43, Est GFR (MDRD) Af Amer 14 L, Est GFR (MDRD) Non-Af 12 L, BUN/Creatinine Ratio 16.6, Glucose 136 H, Calcium 8.5, R andom Vancomycin 16.5 H 04/18/24 06:28: POC Glucose 132 H 04/18/24 11:15: BUN 39 H, Creatinine 2.45 H, Estim Creat Clear Calc 24.91, Est GFR (MDRD) Af Amer 32 L, Est GFR (MDRD) Non-Af 27 L 04/18/24 15:33: Activated Clotting Time 222 H 04/18/24 16:45: POC Glucose 123 H Micro: Microbiology 04/16/24 07:30 Tissue - Right Foot Gram Stain - Final 04/16/24 07:30 Tissue - Right Foot Wound Culture - Preliminary Strep anginosus 04/16/24 07:30 Tissue - Right Foot Anaerobic Culture - Preliminary 04/14/24 11:10 Wound - Right Foot Gram Stain - Final 04/14/24 11:10 Wound - Right Foot Wound Culture - Preliminary Strep anginosus 11/25/24 07:30 Wound - Right Foot Gram Stain - Final 04/16/24 07:30 Wound - Right Foot Wound Culture - Preliminary Strep anginosus 04/14/24 11:20 Blood Culture (Wb) - Anticubital Right Blood Culture - Preliminary No growth in 48 hours. 04/15/24 05:30 Wound - Right Foot Skin and Soft Tissue MRSA/MSSA (PCR - Final Physical Exam Narrative alert, oriented x3 and no apparent distress General Appearance: cooperative, well kempt and well developed Orientation / Consciousness: awake, oriented to person, oriented to place and oriented to time HEENT normocephalic, head/scalp atraumatic and moist oral mucous membranes Eyes PERRL, EOMs intact bilaterally and conjunctivae normal Neck supple, no JVD, thyroid normal and no carotid bruits General: trachea midline Resp normal respiratory effort, no retractions, no use of accessory muscles and clear to auscultation bilaterally Auscultation: Negative for rales, rhonchi or wheezes Cardio regular rate, regular rhythm, S1 normal heart sound, S2 normal heart sound, no murmurs, no rub and no gallops GI normal to inspection, nondistended, normoactive bowel sounds, soft to palpation, non-tender and non-distended Extremity Extremity Narrative: Patient's right foot is bandaged with surgical dressing, this was not removed for examination of the foot Skin no rashes or lesions noted General Skin Exam: no breakdown Neuro oriented x3, CN's II-XII intact bilaterally, moves all extremities and no focal motor deficits Sensorium / Orientation: awake and alert Speech: speech normal Psych affect normal Assessment & Plan Assessment/Plan (1) Neuropathic ulcer of right foot with fat layer exposed: (2) Cellulitis of right lower limb: PLAN: Plan 1. Right foot cellulitis-cultures were positive for strep anginosus, infectious diseases is participating in his care, podiatry is participating in his care, #2 neuropathic ulcer of the right foot-patient's right foot was debrided today by podiatry, they do not feel the patient needs an inpatient surgery at this time, again podiatry will come in today to provide a walking boot for the patient, physical therapy will see the patient tomorrow and determine whether he is safe to go home #3 type 2 diabetes under poor control-patient's A1c was 9, complicates care, management, recovery, and prognosis, blood sugars would be monitored and sliding scale insulin will be administered as needed #4 end-stage renal disease on dialysis-patient underwent dialysis today #5 diabetic neuropathy-complicates care, management, recovery, and prognosis Total clinical time spent by myself addressing the patient's medical issues, reviewing all of his data, and collaborating with patient's care team: 35- minutes Charges/Coding Visit Charges Inpatient E&M: 69875 Subs Hosp L2
[2024-04-18 19:33] LABS: Bedside Glucose 106 mg/dL (74-106)
[2024-04-18] MEDS: Insulin Lispro 100 UNIT/ML INSULN.PEN SC (22:11)
[2024-04-18 22:31] LABS: Bedside Glucose 289 mg/dL (74-106)
[2024-04-19 02:00] VITALS: BP 134/59; PULSE 57; RESP 16; TEMP 37.1; O2SAT 95
[2024-04-19 04:21] VITALS: BMI 31.6
[2024-04-19 06:15] LABS: Absolute Lymphocyte Count 1.63 X10^3/uL (0.83-4.51); Absolute Neutrophil Count 11.4 X10^3/uL (2.0-7.7); Basophil# 0.05 X10^3/uL; Basophil% 0.3 % (0-1); Eosinophil# 0.16 X10^3/uL; Eosinophils% 1.1 % (0-5); Hematocrit 30.5 % (40-54); Hemoglobin 9.4 g/dL (13.0-16.5); Lymphocyte # 1.63 X10^3/ul (0.83-4.51); Lymphocyte % 11.1 % (19-41); Mean Corp Hgb Conc 30.8 g/dL (32-36); Mean Corpuscular Hgb 29.8 pg (27.0-32.0); Mean Corpuscular Volume 96.8 fL (80-94); Mean Platelet Vol. 11.4 fl (6.2-12.0); Monocyte% 8.9 % (0-10); NRBC Flagged by Analyzer 0 % (0-5); Neutrophil # 11.35 X10^3/uL (2.7-7.7); Neutrophil % 77.7 % (47-70); Platelet Count 253 K/mm3 (150-450); RBC Distribution Width SD 52.9 fl (35.1-43.9); Red Blood Count 3.15 M/mm3 (4.6-6.2); White Blood Count 14.6 K/mm3 (4.4-11.0)
[2024-04-19] MEDS: Nystatin Powder 15gm Bottle 1 APPLIC TOPICAL (06:45)
[2024-04-19] MEDS: Menthol/Lanolin/Calamine/Znox 113 GM Tube 1 APPLIC TOPICAL (06:46)
[2024-04-19] MEDS: Insulin Lispro 100 UNIT/ML INSULN.PEN SC ×4 (06:47→22:00)
[2024-04-19 07:13] LABS: Bedside Glucose 247 mg/dL (74-106)
[2024-04-19 07:24] LABS: Anion Gap 9 (5-15); BUN 60 mg/dL (7-18); BUN/Creat Ratio 14.5 RATIO (10-20); Calcium,Total 8.4 mg/dL (8.5-10.1); Chloride 100 mmol/L (98-107); Creatinine, Serum 4.13 mg/dL (0.70-1.30); EST Glomerular Filtration Rate 15 mL/min (>60); Est Glom Filt Rate - Afr Amer 18 mL/min (>60); Estimated Creatinine Clearance 14.76 ml/min; Glucose 272 mg/dL (74-106); Potassium 4.2 mmol/L (3.5-5.1); Sodium Level 134 mmol/L (136-145)
[2024-04-19 08:00] VITALS: BP 130/60; PULSE 62; RESP 14; TEMP 36.8; O2SAT 95
--- NOTE | 2024-04-19 08:22 | PN.HOSP_ITS ---
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 No new complaints. Objective Data Objective Data Vital Signs: Vital Signs Temp Pulse Resp BP Pulse Ox O2 Del Method 37.1 C 57 L 16 134/59 H 95 Room Air 04/19/24 02:00 04/19/24 02:00 04/19/24 02:00 04/19/24 02:00 04/19/24 02:00 04/19/24 02:00 Oxygen Delivery Method Room Air Weight: 97.2 kg Body Mass Index (BMI) 31.6 Intake & Output: Intake and Output for Last 24 Hours 04/17/24 04/18/24 04/19/24 23:59 23:59 23:59 Intake Total 1400 / 1800 600 / 600 50 / 50 Output Total 2 / 2 3700 / 3700 200 / 200 Balance 1398 / 1798 -3100 / -3100 -150 / -150 Lab / Micro Data 04/19/24 05:45 04/19/24 05:45 Labs: Laboratory Results - last 24 hr 04/18/24 06:13: Sodium 132 L, Potassium 4.1, Chloride 98, Carbon Dioxide 24.0, Anion Gap 10, BUN 83 H, Creatinine 5.00 H, Estim Creat Clear Calc 12.43, Est GFR (MDRD) Af Amer 14 L, Est GFR (MDRD) Non-Af 12 L, BUN/Creatinine Ratio 16.6, G lucose 136 H, Calcium 8.5, Random Vancomycin 16.5 H 04/18/24 11:15: BUN 39 H, Creatinine 2.45 H, Estim Creat Clear Calc 24.91, Est GFR (MDRD) Af Amer 32 L, Est GFR (MDRD) Non-Af 27 L 04/18/24 11:38: POC Glucose 106 04/18/24 15:33: Activated Clotting Time 222 H 04/18/24 16:45: POC Glucose 123 H 04/18/24 22:09: POC Glucose 289 H 04/19/24 05:45: WBC 14.6 H, RBC 3.15 L, Hgb 9.4 L, Hct 30.5 L, MCV 96.8 H, MCH 29.8, MCHC 30.8 L, RDW Std Deviation 52.9 H, RDW Coeff of Frances 15.0 H, Plt Count 253, MPV 11.4, Immature Gran % (Auto) 0.900, Neut % (Auto) 77.7 H, Lymph % (Auto) 11.1 L, [place] % (Auto) 8.9, Eos % (Auto) 1.1, Baso % (Auto) 0.3, Absolute Neuts (auto) 11.4 H, Absolute Lymphs (auto) 1.63, Nucleated RBC % 0, Sodium 134 L, Potassium 4.2, Chloride 100, Carbon Dioxide 25.0, Anion Gap 9, BUN 60 H, C reatinine 4.13 H, Estim Creat Clear Calc 14.76, Est GFR (MDRD) Af Amer 18 L, Est GFR (MDRD) Non-Af 15 L, BUN/Creatinine Ratio 14.5, Glucose 272 H, Calcium 8.4 L 04/19/24 06:43: POC Glucose 247 H Micro: Microbiology 04/16/24 07:30 Tissue - Right Foot Gram Stain - Final 04/16/24 07:30 Tissue - Right Foot Wound Culture - Preliminary Strep anginosus 04/16/24 07:30 Tissue - Right Foot Anaerobic Culture - Preliminary 04/14/24 11:10 Wound - Right Foot Gram Stain - Final 04/14/24 11:10 Wound - Right Foot Wound Culture - Preliminary Strep anginosus 04/16/24 07:30 Wound - Right Foot Gram Stain - Final 04/16/24 07:30 Wound - Right Foot Wound Culture - Preliminary Strep anginosus 04/14/24 11:20 Blood Culture (Wb) - Anticubital Right Blood Culture - Preliminary No growth in 48 hours. 04/15/24 05:30 Wound - Right Foot Skin and Soft Tissue MRSA/MSSA (PCR - Final Physical Exam Const alert and no apparent distress Constitutional Narrative: lying in bed. nontoxic. afebrile. HEENT head/scalp atraumatic and moist oral mucous membranes Resp normal respiratory effort, no retractions, no use of accessory muscles and clear to auscultation bilaterally Cardio regular rate, regular rhythm, S1 normal heart sound and S2 normal heart sound GI normal to inspection, nondistended, normoactive bowel sounds, soft to palpation and non-tender Extremity normal to inspection Extremity Narrative: left foot wrapped--did not remove. Neuro Sensorium / Orientation: awake and alert Assessment & Plan Assessment/Plan (1) Neuropathic ulcer of right foot with fat layer exposed: (2) Cellulitis of right lower limb: PLAN: Plan Right foot cellulitis * abx with vanc and pip/tazo * wound culture with Strep anginosus PAD * s/p aortogram RLE with angioplasty anterior tibial artery * followup with vascular surgery. * continue ASA, clopidogrel. Statin intolerance Chronic conditions: * ESRD: on HD T,,. 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 Nephrology following. * DM2: uncontrolled. a1c 9. Will increase glargine to 25 BID. VTE prophylaxis: SQ heparin Charges/Coding Visit Charges Inpatient E&M: 27528 Subs Hosp L2
[2024-04-19] MEDS: Aspirin E.C. 81 MG Tablet PO (09:06)
[2024-04-19] MEDS: Juven (unflavored) Packet 1 PACKET PO ×2 (09:06→16:33)
[2024-04-19] MEDS: Clopidogrel Bisulfate 75 MG Tablet PO (09:09)
[2024-04-19] MEDS: Heparin Injection (Vial) 5,000 UNIT/ML VIAL 5000 UNIT SC ×2 (09:09→22:02)
[2024-04-19] MEDS: Piperacil/Tazobactam 3.375 GM in 0.9% Normal Saline (50mL MB+) 50 ML IV ×2 (09:09→22:05)
[2024-04-19] MEDS: DAKIN'S SOL HALF STRENGTH (=0.25%) TOPICAL (09:10)
[2024-04-19] MEDS: Insulin Glargine-YFGN 100 UNIT/ML Pen 25 UNIT SC ×2 (09:10→22:01)
[2024-04-19 09:36] VITALS: O2SAT 95
[2024-04-19 11:57] LABS: Bedside Glucose 298 mg/dL (74-106)
[2024-04-19 13:45] VITALS: BP 132/56; PULSE 64; RESP 16; TEMP 36.8; O2SAT 95
[2024-04-19 16:49] LABS: Bedside Glucose 292 mg/dL (74-106)
[2024-04-19 17:46] VITALS: BP 124/72; PULSE 60; RESP 14; TEMP 36.9; O2SAT 95
[2024-04-19 19:48] VITALS: BP 138/48; PULSE 59; RESP 16; TEMP 36.7; O2SAT 91
[2024-04-19] MEDS: 0.9% Saline Lock 10 ML Syringe IV (22:03)
[2024-04-19 22:29] LABS: Bedside Glucose 261 mg/dL (74-106)
[2024-04-19] MEDS: BENZOCAINE/MENTHOL 1 LOZENGE MUCOUS MEM (23:59)
[2024-04-20 04:07] VITALS: BMI 32.1
[2024-04-20] MEDS: Insulin Lispro 100 UNIT/ML INSULN.PEN SC ×4 (05:49→21:14)
[2024-04-20 05:51] LABS: Absolute Lymphocyte Count 1.78 X10^3/uL (0.83-4.51); Absolute Neutrophil Count 10.4 X10^3/uL (2.0-7.7); Basophil# 0.06 X10^3/uL; Basophil% 0.4 % (0-1); Eosinophil# 0.31 X10^3/uL; Eosinophils% 2.2 % (0-5); Hematocrit 30.3 % (40-54); Hemoglobin 9.6 g/dL (13.0-16.5); Lymphocyte # 1.78 X10^3/ul (0.83-4.51); Lymphocyte % 12.8 % (19-41); Mean Corp Hgb Conc 31.7 g/dL (32-36); Mean Corpuscular Hgb 30.3 pg (27.0-32.0); Mean Corpuscular Volume 95.6 fL (80-94); Mean Platelet Vol. 11.2 fl (6.2-12.0); Monocyte# 1.18 X10^3/uL; Monocyte% 8.5 % (0-10); NRBC Flagged by Analyzer 0 % (0-5); Neutrophil % 74.7 % (47-70); Platelet Count 260 K/mm3 (150-450); RBC Distribution Width CV 14.8 % (11.6-14.6); RBC Distribution Width SD 51.7 fl (35.1-43.9); Red Blood Count 3.17 M/mm3 (4.6-6.2); White Blood Count 13.9 K/mm3 (4.4-11.0)
[2024-04-20 06:00] VITALS: BP 123/48; PULSE 58; RESP 14; TEMP 36.6; O2SAT 93
[2024-04-20 06:13] LABS: Bedside Glucose 254 mg/dL (74-106)
[2024-04-20 06:19] LABS: Anion Gap 10 (5-15); BUN 75 mg/dL (7-18); BUN/Creat Ratio 14.3 RATIO (10-20); Calcium,Total 8.6 mg/dL (8.5-10.1); Chloride 98 mmol/L (98-107); Creatinine, Serum 5.23 mg/dL (0.70-1.30); EST Glomerular Filtration Rate 11 mL/min (>60); Est Glom Filt Rate - Afr Amer 14 mL/min (>60); Estimated Creatinine Clearance 11.74 ml/min; Glucose 264 mg/dL (74-106); Potassium 4.4 mmol/L (3.5-5.1); Sodium Level 131 mmol/L (136-145)
[2024-04-20 08:44] VITALS: BP 149/65; PULSE 65; RESP 18; TEMP 36; O2SAT 95
[2024-04-20] MEDS: Insulin Glargine-YFGN 100 UNIT/ML Pen 25 UNIT SC ×2 (09:18→21:14)
[2024-04-20] MEDS: Clopidogrel Bisulfate 75 MG Tablet PO (09:19)
[2024-04-20] MEDS: Heparin Injection (Vial) 5,000 UNIT/ML VIAL 5000 UNIT SC ×2 (09:19→21:03)
[2024-04-20] MEDS: Torsemide 100 MG Tablet PO (09:19)
[2024-04-20] MEDS: Juven (unflavored) Packet 1 PACKET PO ×2 (09:19→16:29)
[2024-04-20] MEDS: Aspirin E.C. 81 MG Tablet PO (09:19)
[2024-04-20] MEDS: Piperacil/Tazobactam 3.375 GM in 0.9% Normal Saline (50mL MB+) 50 ML IV ×2 (09:20→21:02)
--- NOTE | 2024-04-20 09:24 | PN.RENAL_ITS ---
Subjective Subjective Following for ESRD. The patient complains of fatigue. He denies chest pain, shortness of breath, or nausea. Objective Data Objective Data Vital Signs: Vital Signs Temp Pulse Resp BP Pulse Ox O2 Del Method 96.8 F L 65 18 149/65 H 95 Room Air 04/20/24 08:44 04/20/24 08:44 04/20/24 08:44 04/20/24 08:44 04/20/24 08:44 04/20/24 08:45 Oxygen Delivery Method Room Air Weight: 98.7 kg Body Mass Index (BMI) 32.1 Intake & Output: Intake and Output for Last 24 Hours 04/18/24 04/19/24 04/20/24 23:59 23:59 23:59 Intake Total 600 / 600 900 / 900 50 / 50 Output Total 3700 / 3700 500 / 900 400 / 400 Balance -3100 / -3100 400 / 0 -350 / -350 Lab / Micro Data 04/20/24 05:00 04/20/24 05:00 Labs: Laboratory Results - last 24 hr 04/19/24 11:36: POC Glucose 298 H 04/19/24 16:22: POC Glucose 292 H 04/19/24 22:00: POC Glucose 261 H 04/20/24 05:00: WBC 13.9 H, RBC 3.17 L, Hgb 9.6 L, Hct 30.3 L, MCV 95.6 H, MCH 30.3, MCHC 31.7 L, RDW Std Deviation 51.7 H, RDW Coeff of Frances 14.8 H, Plt Count 260, MPV 11.2, Immature Gran % (Auto) 1.400 H, Neut % (Auto) 74.7 H, Lymph % (Auto) 12.8 L, [place] % (Auto) 8.5, Eos % (Auto) 2.2, Baso % (Auto) 0.4, Absolute Neuts (auto) 10.4 H, Absolute Lymphs (auto) 1.78, Nucleated RBC % 0, Sodium 131 L, Potassium 4.4, Chloride 98, Carbon Dioxide 23.0, Anion Gap 10, BUN 75 H, C reatinine 5.23 H, Estim Creat Clear Calc 11.74, Est GFR (MDRD) Af Amer 14 L, Est GFR (MDRD) Non-Af 11 L, BUN/Creatinine Ratio 14.3, Glucose 264 H, Calcium 8.6 04/20/24 05:49: POC Glucose 254 H Micro: Microbiology 04/14/24 11:10 Wound - Right Foot Gram Stain - Final 04/14/24 11:10 Wound - Right Foot Wound Culture - Preliminary Strep anginosus 04/14/24 11:20 Blood Culture (Wb) - Anticubital Right Blood Culture - Final No growth in 5 days. 04/16/24 07:30 Tissue - Right Foot Gram Stain - Final 04/16/24 07:30 Tissue - Right Foot Wound Culture - Preliminary Strep anginosus 04/16/24 07:30 Tissue - Right Foot Anaerobic Culture - Preliminary 04/16/24 07:30 Wound - Right Foot Gram Stain - Final 04/16/24 07:30 Wound - Right Foot Wound Culture - Preliminary Strep anginosus 04/15/24 05:30 Wound - Right Foot Skin and Soft Tissue MRSA/MSSA (PCR - Final Physical Exam Narrative AAO3 s1s2, RRR Lung sounds clear. No wheezes, rhonchi or rales noted abdomen soft, nontender 1+ edema to bilateral lower legs AV fistula left forearm positive thrill and bruit Assessment & Plan Assessment/Plan (1) ESRD (end stage renal disease): PLAN: Impression/Plan: The patient is a 88-year-old male with past history of ESRD, type 2 diabetes mellitus, hypertension, PAD, peripheral neuropathy, HFpEF, paroxysmal atrial fibrillation not on OAC, and hyperlipidemia. Patient presented to hospital on 04/14/2024 with generalized weakness, myalgia, and numbness of bilateral feet. The patient was diagnosed with right lower extremity cellulitis with right diabetic foot ulcer. Patient was found to have streptococcal anginosus infection on wound culture. Patient is also status post aortogram with right lower extremity runoff on 04/18/2024 which revealed diffuse calcification of right posterior tibial artery with moderate stenosis of the distal third of artery with occlusion at the medial malleolus level. Nephrology is following for ESRD and dialysis management. ESRD. Patient dialyzes on TTS schedule at [facility]. The patient was dialyzed on 04/18/2024 because of holiday schedule. There is no need for hemodialysis today. Next hemodialysis will be scheduled for tomorrow on 04/21/2024. Hypertension. BP controlled without scheduled antihypertensives. Continue current target weight on dialysis. Will continue to monitor BP. Anemia in CKD. Hemoglobin has been stable during this admission. Continue CRYSTAL with hemodialysis as outpatient.
--- NOTE | 2024-04-20 09:31 | CASEMGMT ---
ISABEL CHENG in to discuss discharge planning with patient. Patient did not ambulate with therapy yesterday. ISABEL CHENG educated patient on the importance of ambulating with therapy to determine if patient is safe to return home. Patient is agreeable work with therapy today. ISABEL CHENG updated therapy regarding concerns regarding patient discharging home and to help determine if patient can safely ambulate to return home. CM will continue to follow this patient and plan for a safe discharge.
[2024-04-20] MEDS: DAKIN'S SOL HALF STRENGTH (=0.25%) TOPICAL (09:41)
[2024-04-20 11:36] LABS: Bedside Glucose 306 mg/dL (74-106)
--- NOTE | 2024-04-20 12:22 | CASEMGMT ---
Discharge Planning A list of?SNF providers including quality and resource use data and consistent with the patient's preferred geographic region, medical needs, and insurance network was created in [facility] Guide.? This list was provided to the RN PROSPER. Alanna Gaston, Discharge Planning Asst.
--- NOTE | 2024-04-20 12:33 | PN.HOSP_ITS ---
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) Type 2 diabetes mellitus with foot ulcer (04/14/24) Type 2 diabetes mellitus with other skin complications (04/14/24) Atherosclerosis of [place] arteries of right leg with ulceration of other part of foot (04/14/24) Atherosclerosis of [place] arteries of other extremities with ulceration (04/14/24) Cellulitis of right lower limb (04/14/24) Local infection of the skin and subcutaneous tissue, unspecified (04/14/24) Non-pressure chronic ulcer of other part of unspecified foot with unspecified severity (04/14/24) Non-pressure chronic ulcer of other part of right foot with fat layer exposed (04/14/24) End stage renal disease (04/14/24) Dependence on renal dialysis (04/14/24) Subjective Subjective Feeling groggy today. Did not work with therapy yesterday. Objective Data Objective Data Vital Signs: Vital Signs Temp Pulse Resp BP Pulse Ox O2 Del Method 36.0 C L 65 18 149/65 H 95 Room Air 04/20/24 08:44 04/20/24 08:44 04/20/24 08:44 04/20/24 08:44 04/20/24 08:44 04/20/24 08:45 Oxygen Delivery Method Room Air Weight: 98.7 kg Body Mass Index (BMI) 32.1 Intake & Output: Intake and Output for Last 24 Hours 04/18/24 04/19/24 04/20/24 23:59 23:59 23:59 Intake Total 600 / 600 900 / 900 50 / 50 Output Total 3700 / 3700 500 / 900 400 / 400 Balance -3100 / -3100 400 / 0 -350 / -350 Lab / Micro Data 04/20/24 05:00 04/20/24 05:00 Labs: Laboratory Results - last 24 hr 04/19/24 16:22: POC Glucose 292 H 04/19/24 22:00: POC Glucose 261 H 04/20/24 05:00: WBC 13.9 H, RBC 3.17 L, Hgb 9.6 L, Hct 30.3 L, MCV 95.6 H, MCH 30.3, MCHC 31.7 L, RDW Std Deviation 51.7 H, RDW Coeff of Frances 14.8 H, Plt Count 260, MPV 11.2, Immature Gran % (Auto) 1.400 H, Neut % (Auto) 74.7 H, Lymph % (Auto) 12.8 L, Charles % (Auto) 8.5, Eos % (Auto) 2.2, Baso % (Auto) 0.4, Absolute Neuts (auto) 10.4 H, Absolute Lymphs (auto) 1.78, Nucleated RBC % 0, Sodium 131 L, Potassium 4.4, Chloride 98, Carbon Dioxide 23.0, Anion Gap 10, BUN 75 H, C reatinine 5.23 H, Estim Creat Clear Calc 11.74, Est GFR (MDRD) Af Amer 14 L, Est GFR (MDRD) Non-Af 11 L, BUN/Creatinine Ratio 14.3, Glucose 264 H, Calcium 8.6 04/20/24 05:49: POC Glucose 254 H 04/20/24 11:15: POC Glucose 306 H Micro: Microbiology 04/16/24 07:30 Wound - Right Foot Gram Stain - Final 04/16/24 07:30 Wound - Right Foot Wound Culture - Preliminary Strep anginosus 04/16/24 07:30 Tissue - Right Foot Gram Stain - Final 04/16/24 07:30 Tissue - Right Foot Wound Culture - Preliminary Strep anginosus 04/16/24 07:30 Tissue - Right Foot Anaerobic Culture - Preliminary Anaerobic cocci Gram negative yessy 04/14/24 11:10 Wound - Right Foot Gram Stain - Final 04/14/24 11:10 Wound - Right Foot Wound Culture - Preliminary Strep anginosus 04/14/24 11:20 Blood Culture (Wb) - Anticubital Right Blood Culture - Final No growth in 5 days. 04/15/24 05:30 Wound - Right Foot Skin and Soft Tissue MRSA/MSSA (PCR - Final Physical Exam Const alert and no apparent distress HEENT head/scalp atraumatic and moist oral mucous membranes Resp normal respiratory effort, no retractions, no use of accessory muscles and clear to auscultation bilaterally Cardio regular rate, regular rhythm, S1 normal heart sound and S2 normal heart sound GI normal to inspection, nondistended, normoactive bowel sounds, soft to palpation, non-tender and non-distended Extremity Extremity Narrative: right foot wrapped--did not remove. Neuro Sensorium / Orientation: awake and alert Assessment & Plan Assessment/Plan (1) Neuropathic ulcer of right foot with fat layer exposed: (2) Cellulitis of right lower limb: PLAN: Plan Right foot cellulitis * abx with vanc and pip/tazo * wound culture with Strep anginosus, anaerobic cocci, GNR PAD * s/p aortogram RLE with angioplasty anterior tibial artery * followup with vascular surgery. * continue ASA, clopidogrel. Statin intolerance Debility * PT OT * encouraged pt to work with therapy. Chronic conditions: * ESRD: on HD ,,. 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 Nephrology following. * DM2: uncontrolled. a1c 9. Will increase glargine to 25 BID. VTE prophylaxis: SQ heparin Charges/Coding Visit Charges Inpatient E&M: 14360 Subs Hosp L2
--- NOTE | 2024-04-20 12:35 | WOUNDNOTE ---
wound photo: right foot
--- NOTE | 2024-04-20 12:36 | WOUNDNOTE ---
wound photo: right foot
[2024-04-20 14:47] VITALS: BP 132/49; PULSE 67; RESP 18; TEMP 37.4; O2SAT 93
--- NOTE | 2024-04-20 15:42 | CASEMGMT ---
Discharge Planning Referral sent via [facility] to [facility] and [facility]. Alanna Gaston DC Planning Asst.
[2024-04-20 16:49] LABS: Bedside Glucose 317 mg/dL (74-106)
[2024-04-20 21:00] VITALS: BP 144/49; PULSE 55; RESP 18; TEMP 36.6; O2SAT 93
[2024-04-20] MEDS: Menthol/Lanolin/Calamine/Znox 113 GM Tube 1 APPLIC TOPICAL (21:04)
[2024-04-20] MEDS: Nystatin Powder 15gm Bottle 1 APPLIC TOPICAL (21:04)
[2024-04-20 23:17] VITALS: PULSE 55; RESP 18; O2SAT 93
[2024-04-21] VITALS (13 sets, daily range): BP systolic 127–286; BP diastolic 48–73; PULSE 54–73; RESP 14–18; TEMP 36.2–37.2; O2SAT 93–98; BMI 32.1; BMI 30.9
[2024-04-21] MEDS: Vancomycin Trough/Random Due 1 LAB MC (06:36)
[2024-04-21 06:44] LABS: Absolute Lymphocyte Count 2.21 X10^3/uL (0.83-4.51); Absolute Neutrophil Count 10.9 X10^3/uL (2.0-7.7); Basophil# 0.05 X10^3/uL; Basophil% 0.3 % (0-1); Eosinophil# 0.32 X10^3/uL; Eosinophils% 2.1 % (0-5); Hematocrit 31.2 % (40-54); Hemoglobin 9.4 g/dL (13.0-16.5); Lymphocyte # 2.21 X10^3/ul (0.83-4.51); Lymphocyte % 14.7 % (19-41); Mean Corp Hgb Conc 30.1 g/dL (32-36); Mean Corpuscular Hgb 29.1 pg (27.0-32.0); Mean Corpuscular Volume 96.6 fL (80-94); Mean Platelet Vol. 10.8 fl (6.2-12.0); Monocyte% 8.6 % (0-10); NRBC Flagged by Analyzer 0 % (0-5); Neutrophil % 72.6 % (47-70); Platelet Count 285 K/mm3 (150-450); RBC Distribution Width CV 14.9 % (11.6-14.6); RBC Distribution Width SD 51.8 fl (35.1-43.9); Red Blood Count 3.23 M/mm3 (4.6-6.2)
[2024-04-21 06:50] LABS: Bedside Glucose 103 mg/dL (74-106)
[2024-04-21 07:27] LABS: Vancomycin, Random Level 15.6 ug/mL (0.0-15.0)
[2024-04-21 07:27] LABS: Anion Gap 9 (5-15); BUN 91 mg/dL (7-18); BUN/Creat Ratio 14.8 RATIO (10-20); Calcium,Total 8.6 mg/dL (8.5-10.1); Chloride 98 mmol/L (98-107); Creatinine, Serum 6.13 mg/dL (0.70-1.30); EST Glomerular Filtration Rate 9 mL/min (>60); Est Glom Filt Rate - Afr Amer 11 mL/min (>60); Estimated Creatinine Clearance 10.02 ml/min; Glucose 123 mg/dL (74-106); Potassium 4.4 mmol/L (3.5-5.1); Sodium Level 132 mmol/L (136-145)
--- NOTE | 2024-04-21 07:37 | PN.HOSP_ITS ---
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) Type 2 diabetes mellitus with foot ulcer (04/14/24) Type 2 diabetes mellitus with other skin complications (04/14/24) Atherosclerosis of [place] arteries of right leg with ulceration of other part of foot (04/14/24) Atherosclerosis of [place] arteries of other extremities with ulceration (04/14/24) Cellulitis of right lower limb (04/14/24) Local infection of the skin and subcutaneous tissue, unspecified (04/14/24) Non-pressure chronic ulcer of other part of unspecified foot with unspecified severity (04/14/24) Non-pressure chronic ulcer of other part of right foot with fat layer exposed (04/14/24) End stage renal disease (04/14/24) Dependence on renal dialysis (04/14/24) Subjective Subjective Not feeling groggy today. Objective Data Objective Data Vital Signs: Vital Signs Temp Pulse Resp BP Pulse Ox O2 Del Method 36.2 C L 55 L 18 139/56 H 93 Room Air 04/21/24 03:00 04/21/24 06:00 04/21/24 03:00 04/21/24 03:00 04/21/24 03:00 04/21/24 03:00 Oxygen Delivery Method Room Air Weight: 98.6 kg Body Mass Index (BMI) 32.1 Intake & Output: Intake and Output for Last 24 Hours 04/19/24 04/20/24 04/21/24 23:59 23:59 23:59 Intake Total 900 / 900 100 / 300 250 / 250 Output Total 500 / 900 400 / 400 0 / 0 Balance 400 / 0 -300 / -100 250 / 250 Lab / Micro Data 04/21/24 06:15 04/21/24 06:15 Labs: Laboratory Results - last 24 hr 04/20/24 11:15: POC Glucose 306 H 04/20/24 16:29: POC Glucose 317 H 04/21/24 06:00: Random Vancomycin 15.6 H 04/21/24 06:15: WBC 15.0 H, RBC 3.23 L, Hgb 9.4 L, Hct 31.2 L, MCV 96.6 H, MCH 29.1, MCHC 30.1 L D, RDW Std Deviation 51.8 H, RDW Coeff of Frances 14.9 H, Plt Count 285, MPV 10.8, Immature Gran % (Auto) 1.700 H, Neut % (Auto) 72.6 H, Lymph % (Auto) 14.7 L, [place] % (Auto) 8.6, Eos % (Auto) 2.1, Baso % (Auto) 0.3, A bsolute Neuts (auto) 10.9 H, Absolute Lymphs (auto) 2.21, Nucleated RBC % 0, S odium 132 L, Potassium 4.4, Chloride 98, Carbon Dioxide 25.0, Anion Gap 9, BUN 91 H, Creatinine 6.13 H, Estim Creat Clear Calc 10.02, Est GFR (MDRD) Af Amer 11 L, Est GFR (MDRD) Non-Af 9 L, BUN/Creatinine Ratio 14.8, Glucose 123 H, Calcium 8.6 04/21/24 06:32: POC Glucose 103 Micro: Microbiology 04/16/24 07:30 Tissue - Right Foot Gram Stain - Final 04/16/24 07:30 Tissue - Right Foot Wound Culture - Preliminary Strep anginosus 04/16/24 07:30 Tissue - Right Foot Anaerobic Culture - Final Anaerobic cocci Bacteroides fragilis 04/16/24 07:30 Wound - Right Foot Gram Stain - Final 04/16/24 07:30 Wound - Right Foot Wound Culture - Preliminary Strep anginosus 04/14/24 11:10 Wound - Right Foot Gram Stain - Final 04/14/24 11:10 Wound - Right Foot Wound Culture - Preliminary Strep anginosus 04/14/24 11:20 Blood Culture (Wb) - Anticubital Right Blood Culture - Final No growth in 5 days. 04/15/24 05:30 Wound - Right Foot Skin and Soft Tissue MRSA/MSSA (PCR - Final Physical Exam Const alert and no apparent distress HEENT head/scalp atraumatic and moist oral mucous membranes Resp normal respiratory effort, no retractions, no use of accessory muscles and clear to auscultation bilaterally Cardio regular rate, regular rhythm, S1 normal heart sound and S2 normal heart sound GI normal to inspection, nondistended, normoactive bowel sounds, soft to palpation, non-tender and non-distended Extremity normal to inspection Extremity Narrative: right foot wrapped--did not remove. (pictures from wound care on the reviewed which showed an eschar over right 1st MTP. Neuro Sensorium / Orientation: awake and alert Assessment & Plan Assessment/Plan (1) Neuropathic ulcer of right foot with fat layer exposed: (2) Cellulitis of right lower limb: PLAN: Plan Right foot cellulitis * abx with vanc and pip/tazo * wound culture with Strep anginosus, anaerobic cocci, Bacteroides fragilis * Last seen by ID on the and discharge plan was for 10 days of doxycycline 100 BID and Augmentin 250 BID. PAD * s/p aortogram RLE with angioplasty anterior tibial artery * followup with vascular surgery. * continue ASA, clopidogrel. Statin intolerance, so no statins ordered. Debility * PT OT * encouraged pt to work with therapy. * Plan is for SNF upon discharge Chronic conditions: * ESRD: on HD . 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 Nephrology following. * DM2: uncontrolled. a1c 9. Will increase glargine to 25 BID. VTE prophylaxis: SQ heparin Disposition: plan for SNF with either [facility] or [facility]. Referrals sent 04/20. Awaiting on acceptance and insurance approval. No discharge until next week. DW patient's son at bedside. Charges/Coding Visit Charges Inpatient E&M: 84809 Subs Hosp L2
[2024-04-21] MEDS: 0.9% Normal Saline 1,000 ML IV.SOLN. 1000 ML OPERA.SITE (07:42)
[2024-04-21] MEDS: PureFlow B 2K Dialysis Soln 1 BAG 6 BAG PF (07:43)
[2024-04-21 08:58] LABS: Bedside Glucose 312 mg/dL (74-106)
[2024-04-21] MEDS: Piperacil/Tazobactam 3.375 GM in 0.9% Normal Saline (50mL MB+) 50 ML IV ×2 (11:07→22:25)
[2024-04-21] MEDS: 0.9% Saline Lock 10 ML Syringe IV ×2 (11:09→22:21)
[2024-04-21] MEDS: Juven (unflavored) Packet 1 PACKET PO (11:10)
[2024-04-21] MEDS: Clopidogrel Bisulfate 75 MG Tablet PO (11:11)
[2024-04-21] MEDS: Heparin Injection (Vial) 5,000 UNIT/ML VIAL 5000 UNIT SC ×2 (11:12→22:21)
[2024-04-21] MEDS: Aspirin E.C. 81 MG Tablet PO (11:12)
[2024-04-21] MEDS: Insulin Glargine-YFGN 100 UNIT/ML Pen 25 UNIT SC ×2 (11:14→22:32)
--- NOTE | 2024-04-21 11:16 | CASEMGMT ---
Social Work- SW met with pt to follow up on SNF list. Pt reports that he has not had the opprotunity to review with family. Pt lives between [place] and [place] and has one family member in [place] and one towards [place]; he would like to discuss with them whether to go to [place] or [place] facility. Pt will attempt to reach out after dialysis today or tomorrow. SW encouraged pt to make choices as soon as possible and provided education on referral process and placement process. SW to follow up with pt on choices following discussion. TERRI Keating
--- NOTE | 2024-04-21 11:50 | PHA.PHARE_ITS ---
Consult Antibiotic Management Pharmacy has been consulted to manage selected antibiotic: Vancomycin Type of Intervention Type of Consult: Follow-up Prior Doses of Antibiotics Prior Doses of Antibiotics Received/Current Regimen: The most recent dose was 500mg IV x1 after dialysis on 04/18/24 at 16:57 Labs Labs: Sodium 132 mmol/L (136-145) L 04/21/24 06:15 Potassium 4.4 mmol/L (3.5-5.1) 04/21/24 06:15 Chloride 98 mmol/L (98-107) 04/21/24 06:15 Carbon Dioxide 25.0 mmol/L (21.0-32.0) 04/21/24 06:15 Anion Gap 9 (5-15) 04/21/24 06:15 BUN 91 mg/dL (7-18) H 04/21/24 06:15 Creatinine 6.13 mg/dL (0.70-1.30) H 04/21/24 06:15 Est GFR (MDRD) Af Amer 11 mL/min (>60) L 04/21/24 06:15 Est GFR (MDRD) Non-Af 9 mL/min (>60) L 04/21/24 06:15 BUN/Creatinine Ratio 14.8 RATIO (10-20) 04/21/24 06:15 Glucose 123 mg/dL (74-106) H 04/21/24 06:15 Random Vancomycin 15.6 ug/mL (0.0-15.0) H 04/21/24 06:00 Microbiology Microbiology: Microbiology 04/16/24 07:30 Tissue - Right Foot Gram Stain - Final 04/16/24 07:30 Tissue - Right Foot Wound Culture - Preliminary Strep anginosus 04/16/24 07:30 Tissue - Right Foot Anaerobic Culture - Final Anaerobic cocci Bacteroides fragilis 04/16/24 07:30 Wound - Right Foot Gram Stain - Final 04/16/24 07:30 Wound - Right Foot Wound Culture - Preliminary Strep anginosus 04/14/24 11:10 Wound - Right Foot Gram Stain - Final 04/14/24 11:10 Wound - Right Foot Wound Culture - Preliminary Strep anginosus 04/14/24 11:20 Blood Culture (Wb) - Anticubital Right Blood Culture - Final No growth in 5 days. 04/15/24 05:30 Wound - Right Foot Skin and Soft Tissue MRSA/MSSA (PCR - Final Dosing Weight Weight used for dosin.1 kg Goal Trough Goal Trough: 15-20 mcg/mL Pharmacy Plan for Drug Dosing Pharmacy Plan for Drug Dosing: The vanc random level drawn prior to HD today was 15.6. Per [facility] dosing protocol, since this is between 15-20, will give another 500mg IV x1 after HD later today. Repeat another random level prior to the next dialysis session which will most likely be Tuesday since the patient's usual schedule is . Pharmacy Service will continue to monitor and adjust dosing as required. Follow-Up Labs Follow-Up Labs: Trough: Vancomycin (random pre-HD) Date/Time Labs Ordered Labs to be done on [date and time ordered]: prior to next HD session (most likely 04/24/24)
[2024-04-21] MEDS: DAKIN'S SOL HALF STRENGTH (=0.25%) TOPICAL (15:41)
[2024-04-21] MEDS: Vancomycin IV 500 MG/100 ML BAG 100 MG IV (15:42)
[2024-04-21] MEDS: 0.9% Normal Saline (500mL Bag) 500 ML 15 ML IV (15:43)
[2024-04-21] MEDS: Acetaminophen 325 MG Tablet 650 MG PO (15:44)
[2024-04-21] MEDS: Insulin Lispro 100 UNIT/ML INSULN.PEN SC ×2 (17:06→22:32)
[2024-04-21 17:28] LABS: Bedside Glucose 173 mg/dL (74-106)
[2024-04-21 22:55] LABS: Bedside Glucose 158 mg/dL (74-106)
[2024-04-22] MEDS: Acetaminophen 325 MG Tablet 650 MG PO (03:51)
[2024-04-22 03:56] VITALS: BP 145/59; PULSE 52; RESP 18; TEMP 37; O2SAT 93
[2024-04-22 07:03] LABS: Absolute Lymphocyte Count 2.51 X10^3/uL (0.83-4.51); Absolute Neutrophil Count 11.4 X10^3/uL (2.0-7.7); Basophil# 0.08 X10^3/uL; Basophil% 0.5 % (0-1); Eosinophil# 0.35 X10^3/uL; Eosinophils% 2.2 % (0-5); Hematocrit 30.1 % (40-54); Hemoglobin 9.4 g/dL (13.0-16.5); Lymphocyte # 2.51 X10^3/ul (0.83-4.51); Lymphocyte % 15.8 % (19-41); Mean Corp Hgb Conc 31.2 g/dL (32-36); Mean Corpuscular Hgb 30.1 pg (27.0-32.0); Mean Corpuscular Volume 96.5 fL (80-94); Mean Platelet Vol. 11.2 fl (6.2-12.0); Monocyte# 1.35 X10^3/uL; Monocyte% 8.5 % (0-10); NRBC Flagged by Analyzer 0 % (0-5); Neutrophil # 11.36 X10^3/uL (2.7-7.7); Neutrophil % 71.3 % (47-70); Platelet Count 303 K/mm3 (150-450); RBC Distribution Width CV 14.9 % (11.6-14.6); RBC Distribution Width SD 52.3 fl (35.1-43.9); Red Blood Count 3.12 M/mm3 (4.6-6.2); White Blood Count 15.9 K/mm3 (4.4-11.0)
[2024-04-22 07:07] VITALS: O2SAT 94
[2024-04-22 07:14] LABS: Bedside Glucose 72 mg/dL (74-106)
[2024-04-22 07:14] LABS: Bedside Glucose 54 mg/dL (74-106)
--- NOTE | 2024-04-22 07:54 | PN.HOSP_ITS ---
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) Type 2 diabetes mellitus with foot ulcer (04/14/24) Type 2 diabetes mellitus with other skin complications (04/14/24) Atherosclerosis of [place] arteries of right leg with ulceration of other part of foot (04/14/24) Atherosclerosis of [place] arteries of other extremities with ulceration (04/14/24) Cellulitis of right lower limb (04/14/24) Local infection of the skin and subcutaneous tissue, unspecified (04/14/24) Non-pressure chronic ulcer of other part of unspecified foot with unspecified severity (04/14/24) Non-pressure chronic ulcer of other part of right foot with fat layer exposed (04/14/24) End stage renal disease (04/14/24) Dependence on renal dialysis (04/14/24) Subjective Subjective Feeling well. No events overnight. Objective Data Objective Data Vital Signs: Vital Signs Temp Pulse Resp BP Pulse Ox O2 Del Method 37.0 C 52 L 18 145/59 H 94 Room Air 04/22/24 03:56 04/22/24 03:56 04/22/24 03:56 04/22/24 03:56 04/22/24 07:07 04/22/24 07:07 Oxygen Delivery Method Room Air Weight: 95.1 kg Body Mass Index (BMI) 30.9 Intake & Output: Intake and Output for Last 24 Hours 04/20/24 04/21/24 04/22/24 23:59 23:59 23:59 Intake Total 100 / 300 727.75 / 727.75 50 / 50 Output Total 400 / 400 3400 / 3400 Balance -300 / -100 -2672.25 / -2672.25 50 / 50 Lab / Micro Data 04/22/24 05:45 04/22/24 05:45 Labs: Laboratory Results - last 24 hr 04/20/24 21:13: POC Glucose 312 H 04/21/24 17:05: POC Glucose 173 H 04/21/24 22:31: POC Glucose 158 H 04/22/24 05:45: WBC 15.9 H, RBC 3.12 L, Hgb 9.4 L, Hct 30.1 L, MCV 96.5 H, MCH 30.1, MCHC 31.2 L, RDW Std Deviation 52.3 H, RDW Coeff of Frances 14.9 H, Plt Count 303, MPV 11.2, Immature Gran % (Auto) 1.700 H, Neut % (Auto) 71.3 H, Lymph % (Auto) 15.8 L, [place] % (Auto) 8.5, Eos % (Auto) 2.2, Baso % (Auto) 0.5, Absolute Neuts (auto) 11.4 H, Absolute Lymphs (auto) 2.51, Nucleated RBC % 0 04/22/24 06:33: POC Glucose 54 L 04/22/24 06:55: POC Glucose 72 L Micro: Microbiology 04/16/24 07:30 Tissue - Right Foot Gram Stain - Final 04/16/24 07:30 Tissue - Right Foot Wound Culture - Preliminary Strep anginosus 04/16/24 07:30 Tissue - Right Foot Anaerobic Culture - Final Anaerobic cocci Bacteroides fragilis 04/16/24 07:30 Wound - Right Foot Gram Stain - Final 04/16/24 07:30 Wound - Right Foot Wound Culture - Preliminary Strep anginosus 04/14/24 11:10 Wound - Right Foot Gram Stain - Final 04/14/24 11:10 Wound - Right Foot Wound Culture - Preliminary Strep anginosus 04/14/24 11:20 Blood Culture (Wb) - Anticubital Right Blood Culture - Final No growth in 5 days. 04/15/24 05:30 Wound - Right Foot Skin and Soft Tissue MRSA/MSSA (PCR - Final Physical Exam Const alert and no apparent distress HEENT head/scalp atraumatic and moist oral mucous membranes Neck no lymphadenopathy and supple Resp normal respiratory effort, no retractions, no use of accessory muscles and clear to auscultation bilaterally Cardio regular rate, regular rhythm, S1 normal heart sound and S2 normal heart sound Assessment & Plan Assessment/Plan (1) Neuropathic ulcer of right foot with fat layer exposed: (2) Cellulitis of right lower limb: PLAN: Plan Right foot cellulitis * abx with vanc and pip/tazo * wound culture with Strep anginosus, anaerobic cocci, Bacteroides fragilis * Last seen by ID on the and discharge plan was for 10 days of doxycycline 100 BID and Augmentin 250 BID. PAD * s/p aortogram RLE with angioplasty anterior tibial artery * followup with vascular surgery. * continue ASA, clopidogrel. Statin intolerance, so no statins ordered. Debility * PT OT * Plan is for SNF upon discharge Chronic conditions: * ESRD: on HD ,. * DM2: uncontrolled. a1c 9. Will increase glargine to 25 BID. VTE prophylaxis: SQ heparin Disposition: plan for SNF with either [facility] or [facility]. Referrals sent 04/20. Awaiting on acceptance and insurance approval. No discharge until next week. Charges/Coding Visit Charges Inpatient E&M: 52524 Subs Hosp L2
[2024-04-22 08:03] LABS: Anion Gap 10 (5-15); BUN 66 mg/dL (7-18); BUN/Creat Ratio 13.8 RATIO (10-20); Calcium,Total 8.5 mg/dL (8.5-10.1); Chloride 100 mmol/L (98-107); EST Glomerular Filtration Rate 12 mL/min (>60); Est Glom Filt Rate - Afr Amer 15 mL/min (>60); Estimated Creatinine Clearance 12.57 ml/min; Glucose 66 mg/dL (74-106); Potassium 4.1 mmol/L (3.5-5.1); Sodium Level 135 mmol/L (136-145)
[2024-04-22] MEDS: Piperacil/Tazobactam 3.375 GM in 0.9% Normal Saline (50mL MB+) 50 ML IV ×2 (09:31→21:45)
[2024-04-22] MEDS: Juven (unflavored) Packet 1 PACKET PO ×2 (09:34→16:52)
[2024-04-22] MEDS: Ensure Clear 120 ML Liquid PO (09:38)
[2024-04-22 09:41] VITALS: BP 152/56; PULSE 62; RESP 17; TEMP 36.6; O2SAT 95
[2024-04-22] MEDS: Clopidogrel Bisulfate 75 MG Tablet PO (09:43)
[2024-04-22] MEDS: Aspirin E.C. 81 MG Tablet PO (09:43)
[2024-04-22] MEDS: Torsemide 100 MG Tablet PO (09:43)
[2024-04-22] MEDS: Heparin Injection (Vial) 5,000 UNIT/ML VIAL 5000 UNIT SC ×2 (10:53→21:46)
[2024-04-22] MEDS: Insulin Lispro 100 UNIT/ML INSULN.PEN SC ×3 (11:39→21:49)
[2024-04-22] MEDS: DAKIN'S SOL HALF STRENGTH (=0.25%) TOPICAL (11:40)
[2024-04-22 11:58] LABS: Bedside Glucose 191 mg/dL (74-106)
[2024-04-22 15:40] VITALS: BP 145/61; PULSE 54; RESP 18; TEMP 37.1; O2SAT 93
[2024-04-22] MEDS: 0.9% Saline Lock 10 ML Syringe IV ×2 (16:56→21:45)
[2024-04-22 17:15] LABS: Bedside Glucose 220 mg/dL (74-106)
[2024-04-22 21:42] VITALS: BP 158/75; PULSE 57; RESP 18; TEMP 36.4; O2SAT 93
[2024-04-22] MEDS: Insulin Glargine-YFGN 100 UNIT/ML Pen 25 UNIT SC (21:50)
[2024-04-22 22:44] LABS: Bedside Glucose 290 mg/dL (74-106)
[2024-04-23 03:36] VITALS: BP 149/88; PULSE 52; RESP 18; TEMP 36.4; O2SAT 92
[2024-04-23 03:55] VITALS: BMI 30.9
[2024-04-23] MEDS: Insulin Lispro 100 UNIT/ML INSULN.PEN SC ×4 (06:23→23:01)
[2024-04-23 06:42] LABS: Bedside Glucose 173 mg/dL (74-106)
--- NOTE | 2024-04-23 08:04 | PN.HOSP_ITS ---
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) Type 2 diabetes mellitus with foot ulcer (04/14/24) Type 2 diabetes mellitus with other skin complications (04/14/24) Atherosclerosis of [place] arteries of right leg with ulceration of other part of foot (04/14/24) Atherosclerosis of [place] arteries of other extremities with ulceration (04/14/24) Cellulitis of right lower limb (04/14/24) Local infection of the skin and subcutaneous tissue, unspecified (04/14/24) Non-pressure chronic ulcer of other part of unspecified foot with unspecified severity (04/14/24) Non-pressure chronic ulcer of other part of right foot with fat layer exposed (04/14/24) End stage renal disease (04/14/24) Dependence on renal dialysis (04/14/24) Objective Data Objective Data Vital Signs: Vital Signs Temp Pulse Resp BP Pulse Ox O2 Del Method 97.5 F L 52 L 18 149/88 H 92 Room Air 04/23/24 03:36 04/23/24 03:36 04/23/24 03:36 04/23/24 03:36 04/23/24 03:36 04/23/24 03:55 Oxygen Delivery Method Room Air Weight: 209 lb 10.554 oz Body Mass Index (BMI) 30.9 Intake & Output: Intake and Output for Last 24 Hours 04/21/24 04/22/24 04/23/24 23:59 23:59 23:59 Intake Total 727.75 / 727.75 942.5 / 942.5 50 / 50 Output Total 3400 / 3400 Balance -2672.25 / -2672.25 942.5 / 942.5 50 / 50 Lab / Micro Data 04/22/24 05:45 04/22/24 05:45 Labs: Laboratory Results - last 24 hr 04/22/24 11:38: POC Glucose 191 H 04/22/24 16:49: POC Glucose 220 H 04/22/24 21:48: POC Glucose 290 H 04/23/24 06:22: POC Glucose 173 H Micro: Microbiology 04/16/24 07:30 Wound - Right Foot Gram Stain - Final 04/16/24 07:30 Wound - Right Foot Wound Culture - Preliminary Strep anginosus Coag Negative Staph 04/16/24 07:30 Tissue - Right Foot Gram Stain - Final 04/16/24 07:30 Tissue - Right Foot Wound Culture - Preliminary Strep anginosus 04/16/24 07:30 Tissue - Right Foot Anaerobic Culture - Final Anaerobic cocci Bacteroides fragilis 04/14/24 11:10 Wound - Right Foot Gram Stain - Final 04/14/24 11:10 Wound - Right Foot Wound Culture - Final Strep anginosus 04/14/24 11:20 Blood Culture (Wb) - Anticubital Right Blood Culture - Final No growth in 5 days. 04/15/24 05:30 Wound - Right Foot Skin and Soft Tissue MRSA/MSSA (PCR - Final Physical Exam Narrative Seen and examined. Patient does not remember about RLE angiogram. No acute issues. Physical exam General: Alert, Oriented x3, Cooperative HEENT: Atraumatic, PERRLA, EOMI, Normocephalic Oral: No Gingival or Mucosal Lesions/ Ulcerations Neck: Supple, No JVD, Negative Carotid Bruits Chest wall/Lungs: Air entry diminished in bilateral lung bases. No crepitation/rhonchi Cardiovascular: Bradycardia, Normal S1, Normal S2, No M/G/R Abdomen: Bowel Sounds Present, Soft, Non Tender, Non-Distended : On hemodialysis. No renal angle tenderness. No suprapubic tenderness. Extremities: No edema, Capillary Refill Less than 3 Seconds Skin: Ulcer on the right foot/first MTP. Dry and wrinkled skin, loss of hair. Musculoskeletal: No Tenderness to Palpation of Joints or Extremities. ROM restricted Neurological: Cranial nerves II-XII grossly intact, DTR 2+/4. No acute focal neurological deficit. Psych/Mental Status: Flat affect. Dementia Assessment & Plan Assessment/Plan (1) Neuropathic ulcer of right foot with fat layer exposed: (2) Cellulitis of right lower limb: PLAN: Plan 88-year-old gentleman with CAD with cellulitis of right foot and lower leg with history of PAD. Right foot cellulitis * abx with vanc and pip/tazo * wound culture with Strep anginosus, anaerobic cocci, Bacteroides fragilis * Last seen by ID on the and discharge plan was for 10 days of doxycycline 100 BID and Augmentin 250 BID. 04/23: IV vancomycin and Zosyn discontinued and started on doxycycline and Augmentin as recommended by ID as mentioned above PAD * s/p aortogram RLE with angioplasty anterior tibial artery * followup with vascular surgery. * continue ASA, clopidogrel. Statin intolerance, so no statins ordered. Debility * PT OT * Plan is for SNF upon discharge Chronic conditions: * ESRD: on HD ,,. * DM2: uncontrolled. a1c 9. glargine to 25 BID. 04/23: Glucose is still high therefore started on Humalog 10 units 3 times daily with meals. VTE prophylaxis: SQ heparin Disposition: plan for SNF with either [facility] or [facility]. Referrals sent 04/20. Awaiting on acceptance and insurance approval. No discharge until next week. Charges/Coding Visit Charges Inpatient E&M: 97955 Subs Hosp L2
[2024-04-23 09:00] VITALS: BP 136/55; PULSE 53; RESP 18; TEMP 36.6; O2SAT 94
[2024-04-23] MEDS: Clopidogrel Bisulfate 75 MG Tablet PO (09:03)
[2024-04-23] MEDS: Juven (unflavored) Packet 1 PACKET PO (09:03)
[2024-04-23] MEDS: Heparin Injection (Vial) 5,000 UNIT/ML VIAL 5000 UNIT SC ×2 (09:03→23:03)
[2024-04-23] MEDS: Aspirin E.C. 81 MG Tablet PO (09:03)
[2024-04-23] MEDS: Torsemide 100 MG Tablet PO (09:03)
[2024-04-23] MEDS: Insulin Glargine-YFGN 100 UNIT/ML Pen 25 UNIT SC ×2 (09:04→23:03)
[2024-04-23] MEDS: DAKIN'S SOL HALF STRENGTH (=0.25%) TOPICAL (09:04)
--- NOTE | 2024-04-23 09:07 | CASEMGMT ---
Addendum entered by Alanna Gaston 04/23/24 12:08: Call rec'd from [facility]. They are unable to accept (accepted on [facility]port in error). SW updated. Alanna Gaston DC Planning Asst. Original Note: Discharge Planning Updates sent to [facility] and [facility]. Alanna Gaston DC Planning Asst.
[2024-04-23] MEDS: Piperacil/Tazobactam 3.375 GM in 0.9% Normal Saline (50mL MB+) 50 ML IV (09:43)
[2024-04-23] MEDS: 0.9% Saline Lock 10 ML Syringe IV (09:44)
[2024-04-23] MEDS: Acetaminophen 325 MG Tablet 650 MG PO ×2 (10:55→16:59)
[2024-04-23 11:00] VITALS: O2SAT 93
--- NOTE | 2024-04-23 12:13 | CASEMGMT ---
SAURAV noted in [facility] accepted. SW called patient's daughter Hilaria and let her know that [facility] can take patient. SW then received notification that [facility] cannot take patient. SAURAV called Hilaria back and let her know this information. Still waiting on CC to respond. SAURAV did tell Hilaria that family would need to transport if [facility] can take patient. SAURAV asked for another choice in case [facility] cannot take patient. The next choice is [facility]. Amy Desir SET UP / OPERATOR JANNIE
[2024-04-23 12:39] LABS: Bedside Glucose 252 mg/dL (74-106)
--- NOTE | 2024-04-23 12:40 | CASEMGMT ---
Discharge Planning [facility] has accepted and will submit for precert. SW updated. Alanna Gaston DC Planning asst.
--- NOTE | 2024-04-23 12:45 | CASEMGMT ---
SW called patient's daughter and let her know that [facility] has accepted patient with the understanding that family will transport patient to and from dialysis. SW explained insurance will need to approve before patient can be discharged. Plan: d/c to [facility] pending insurance approval. Amy VALDERRAMA
--- NOTE | 2024-04-23 13:53 | WOUNDNOTE ---
wound photo: right foot
--- NOTE | 2024-04-23 13:54 | WOUNDNOTE ---
wound photo: right foot
--- NOTE | 2024-04-23 13:54 | WOUNDNOTE ---
wound photo: right foot
[2024-04-23 14:00] VITALS: BP 142/50; PULSE 50; RESP 18; TEMP 37; O2SAT 97
--- NOTE | 2024-04-23 14:39 | PCM.PN.ID ---
Physical Exam Narrative Feeling better, foot improved, no fever Const alert and no apparent distress General Appearance: cooperative Resp normal air movement Auscultation: wheezes Cardio regular rate and regular rhythm GI soft to palpation, non-tender and non-distended Extremity General Extremity: Negative for edema Skin Skin Narrative: foot wrapped ID ID: Route of nutrition/ use of supplements: [] Nutritional Intake: [] IV Site: [] Lozano Catheter: [] Assessment & Plan Assessment/Plan (1) Diabetic infection of right foot: PLAN: MRI showed no osteo. Ok for home with 7 days po doxy 100mg bid and augmentin 250mg bid. Will follow prn (2) Chronic kidney disease, stage V requiring chronic dialysis:
--- NOTE | 2024-04-23 15:29 | CASEMGMT ---
SAURAV spoke with patient's daughter in law letting her know patient will be going to [facility]. SAURAV also explained patient cannot go until insurance approves him. SW explained that as of now insurance has not given an answer. Plan: d/c to [facility] pending insurance approval. Amy VALDERRAMA
[2024-04-23] MEDS: Insulin Lispro 100 UNIT/ML INSULN.PEN 10 UNIT SC (16:50)
[2024-04-23] MEDS: oxyCODONE 5 MG Tablet 2.5 MG PO (16:59)
[2024-04-23 17:27] LABS: Bedside Glucose 311 mg/dL (74-106)
--- NOTE | 2024-04-23 17:59 | PCM.PN.REN ---
Subjective Subjective no new complaints Objective Data Objective Data Vital Signs: Vital Signs Temp Pulse Resp BP Pulse Ox O2 Del Method 98.6 F 50 L 18 142/50 H 97 Room Air 04/23/24 14:00 04/23/24 14:00 04/23/24 14:00 04/23/24 14:00 04/23/24 14:00 04/23/24 14:00 Oxygen Delivery Method Room Air Weight: 95.1 kg Body Mass Index (BMI) 30.9 Intake & Output: Intake and Output for Last 24 Hours 04/21/24 04/22/24 04/23/24 23:59 23:59 23:59 Intake Total 727.75 / 727.75 942.5 / 942.5 340 / 340 Output Total 3400 / 3400 Balance -2672.25 / -2672.25 942.5 / 942.5 340 / 340 Lab / Micro Data 04/22/24 05:45 04/22/24 05:45 Labs: Laboratory Results - last 24 hr 04/22/24 21:48: POC Glucose 290 H 04/23/24 06:22: POC Glucose 173 H 04/23/24 11:56: POC Glucose 252 H 04/23/24 16:48: POC Glucose 311 H Micro: Microbiology 04/16/24 07:30 Tissue - Right Foot Gram Stain - Final 04/16/24 07:30 Tissue - Right Foot Wound Culture - Preliminary Strep anginosus 04/16/24 07:30 Tissue - Right Foot Anaerobic Culture - Final Anaerobic cocci Bacteroides fragilis 04/16/24 07:30 Wound - Right Foot Gram Stain - Final 04/16/24 07:30 Wound - Right Foot Wound Culture - Preliminary Strep anginosus Staphylococcus cohnii urealyti 04/14/24 11:10 Wound - Right Foot Gram Stain - Final 04/14/24 11:10 Wound - Right Foot Wound Culture - Final Strep anginosus 04/14/24 11:20 Blood Culture (Wb) - Anticubital Right Blood Culture - Final No growth in 5 days. 04/15/24 05:30 Wound - Right Foot Skin and Soft Tissue MRSA/MSSA (PCR - Final Physical Exam Narrative AAO3 s1s2, RRR Lung sounds clear. No wheezes, rhonchi or rales noted abdomen soft, nontender 1+ edema to bilateral lower legs AV fistula left forearm positive thrill and bruit Assessment & Plan Assessment/Plan (1) ESRD (end stage renal disease): PLAN: Impression/Plan: The patient is a 88-year-old male with past history of ESRD, type 2 diabetes mellitus, hypertension, PAD, peripheral neuropathy, HFpEF, paroxysmal atrial fibrillation not on OAC, and hyperlipidemia. Patient presented to hospital on 04/14/2024 with generalized weakness, myalgia, and numbness of bilateral feet. The patient was diagnosed with right lower extremity cellulitis with right diabetic foot ulcer. Patient was found to have streptococcal anginosus infection on wound culture. Patient is also status post aortogram with right lower extremity runoff on 04/18/2024 which revealed diffuse calcification of right posterior tibial artery with moderate stenosis of the distal third of artery with occlusion at the medial malleolus level. Nephrology is following for ESRD and dialysis management. ESRD. Patient dialyzes on TTS schedule at [facility]. continue as per schedule Hypertension. BP controlled Anemia in CKD. Hemoglobin has been stable during this admission. Continue [facility] with hemodialysis as outpatient.
--- NOTE | 2024-04-23 19:03 | PN_ITS ---
Subjective Subjective Patient seen resting bedside in [place] chair with feet elevated. States that he is about to watch the [place]. Denies constitutional symptoms. States he feels pretty good. Denies pain to the foot. Denies further complaints. Objective Data Objective Data Vital Signs: Vital Signs Temp Pulse Resp BP Pulse Ox O2 Del Method 98.6 F 50 L 18 142/50 H 97 Room Air 04/23/24 14:00 04/23/24 14:00 04/23/24 14:00 04/23/24 14:00 04/23/24 14:00 04/23/24 14:00 Oxygen Delivery Method Room Air Weight: 95.1 kg Body Mass Index (BMI) 30.9 Intake & Output: Intake and Output for Last 24 Hours 04/21/24 04/22/24 04/23/24 23:59 23:59 23:59 Intake Total 727.75 / 727.75 942.5 / 942.5 340 / 340 Output Total 3400 / 3400 Balance -2672.25 / -2672.25 942.5 / 942.5 340 / 340 Lab / Micro Data 04/22/24 05:45 04/22/24 05:45 Labs: Laboratory Results - last 24 hr 04/22/24 21:48: POC Glucose 290 H 04/23/24 06:22: POC Glucose 173 H 04/23/24 11:56: POC Glucose 252 H 04/23/24 16:48: POC Glucose 311 H Micro: Microbiology 04/16/24 07:30 Tissue - Right Foot Gram Stain - Final 04/16/24 07:30 Tissue - Right Foot Wound Culture - Preliminary Strep anginosus 04/16/24 07:30 Tissue - Right Foot Anaerobic Culture - Final Anaerobic cocci Bacteroides fragilis 04/16/24 07:30 Wound - Right Foot Gram Stain - Final 04/16/24 07:30 Wound - Right Foot Wound Culture - Preliminary Strep anginosus Staphylococcus cohnii urealyti 04/14/24 11:10 Wound - Right Foot Gram Stain - Final 04/14/24 11:10 Wound - Right Foot Wound Culture - Final Strep anginosus 04/14/24 11:20 Blood Culture (Wb) - Anticubital Right Blood Culture - Final No growth in 5 days. 04/15/24 05:30 Wound - Right Foot Skin and Soft Tissue MRSA/MSSA (PCR - Final Physical Exam Const alert, oriented x3 and no apparent distress Constitutional Narrative: Nontoxic-appearing General Appearance: cooperative HEENT normocephalic Eyes General Eye: normal appearance of both eyes Neck General: normal visual inspection Lymph Lymphatic: no lymphadenopathy noted and no lymphedema noted Resp normal respiratory effort Cardio regular rate and regular rhythm Extremity no calf tenderness Extremity Narrative: Left lower extremity: Vascular: DP and PT pulses nonpalpable. CFT is greater than 5 seconds/delayed to digits. Normal temperature gradient. Hair growth is absent to digits/foot. Neurologic: Gross sensation intact. Protective sensation absent secondary to diabetic peripheral polyneuropathy Musculoskeletal: Muscle strength 5 of 5 age-appropriate. Decreased range of motion of the first metatarsophalangeal joint dorsiflexion without pain or crepitus. Decreased range of motion of the ankle joint in dorsiflexion with the knee extended without pain or crepitus. No pain to palpation about the calf. Dermatologic: Skin is mildly xerotic secondary to peripheral vascular disease with likely autonomic neuropathy. Skin otherwise unremarkable. Right lower extremity: Vascular: DP and PT pulses nonpalpable. CFT is greater than 5 seconds/delayed to digits. Normal temperature gradient. Hair growth absent to digits/foot. Neurologic: Gross sensation intact. Protective sensation absent secondary to diabetic peripheral polyneuropathy Musculoskeletal: Muscle strength 5 of 5 age-appropriate. Decreased range of motion of the first metatarsophalangeal joint in dorsiflexion without pain or crepitus. Decreased range of motion of the ankle joint dorsiflexion with the knee extended without pain or crepitus. No pain to palpation about the calf. Dermatological: There is an ulceration plantar to the first metatarsal head with necrotic eschar and dense yellow fibrotic tissue. There is some eschar secondary to tissue destruction along the medial aspect of the first metatarsal head secondary to infection and ischemia. There is erythema and cellulitic like appearance of the foot with improvement/receding of erythema on IV antibiotic. Predebridement ulceration measures 3.1 cm x 1.8 cm with dense yellow fibrotic tissue and some surrounding eschar secondary to infection and ischemic tissue . Postdebridement ulceration measures 3.2 cm x 1.9 cm x 0.3 cm. Underlying the fibrotic tissue there is no purulent drainage but there is malodor with dense, thickened, yellow nonviable fibrotic tissue. There is close proximity to the joint capsule of the first MTPJ post removal of necrotic tissue. There is some tunneling of the ulceration 0.3 cm at the 3 o'clock position, 0.3 cm at the 9 o'clock position and 0.6 cm at the 6 o'clock position. No purulent drainage expressible. Skin no rashes or lesions noted, skin turgor normal and no jaundice Neuro moves all extremities Assessment & Plan Assessment/Plan (1) Cellulitis of right lower limb: (2) Neuropathic ulcer of right foot with fat layer exposed: (3) Diabetes mellitus with diabetic polyneuropathy: (4) Type 2 diabetes mellitus with foot ulcer: (5) Diabetic infection of right foot: PLAN: Plan Patient seen and evaluated Right foot: There is an ulceration plantar to the first metatarsal head with necrotic eschar and dense yellow fibrotic tissue. There is some eschar secondary to tissue destruction along the medial aspect of the first metatarsal head secondary to infection and ischemia. There is erythema and cellulitic like appearance of the foot with improvement/receding of erythema on IV antibiotic. Predebridement ulceration measures 3.1 cm x 1.8 cm with dense yellow fibrotic tissue and some surrounding eschar secondary to infection and ischemic tissue . Postdebridement ulceration measures 3.2 cm x 1.9 cm x 0.3 cm. Underlying the fibrotic tissue there is no purulent drainage but there is malodor with dense, thickened, yellow nonviable fibrotic tissue. There is close proximity to the joint capsule of the first MTPJ post removal of necrotic tissue. There is some tunneling of the ulceration 0.3 cm at the 3 o'clock position, 0.3 cm at the 9 o'clock position and 0.6 cm at the 6 o'clock position. No purulent drainage expressible. WBC currently 15.9 Currently on IV Doxycycline/Augmentin HgbA1c 9% on 04/16/2024 Cultures: MRSA PCR negative; Staph aureus protein A PCR negative; blood culture negative; wound swab demonstrating strep anginosus; tissue culture demonstrating possible Enterococcus sp Radiograph right foot: There is some soft tissue gas possibly correlating to infection plantar first metatarsal, negative for osteomyelitis. MRI was ordered for further evaluation of right foot demonstrating: Soft tissue cellulitis and myositis. There is some soft tissue air about the ulceration secondary to prior debridement. No abscess formation. No evidence of osteomyelitis. LEAS performed 04/16/2024: Left lower extremity demonstrates monophasic DP and PT pulses. PT indices 0.64, DP noncompressible, digit 0.44. Moderate arterial disease. Right lower extremity demonstrates monophasic DP and PT pulses. PT indices noncompressible, DP noncompressible. Patient underwent angio with Dr. White 05/18/2024. Following verbal permission right foot was cleansed with Betadine about the ulcerative site and site did undergo sharp excisional debridement down to the level of the muscle/joint capsule utilizing a #15 blade and forceps this evening 04/23/24. 100% of the ulceration was debrided. Debridement consisted of removal of necrotic tissue/eschar, fibrous, devitalized subcutaneous, biofilm, slough. No purulent drainage was encountered during debridement nor expressible. There was some malodor during debridement noted of the necrotic eschar tissue. No local anesthetic utilized secondary to diabetic peripheral polyneuropathy. There was minimal bleeding of the tissue during debridement. Site was copiously irrigated with 60 mL Dakin's including the undermining pockets at the positions noted above with a 20 mL syringe with an 18-gauge needle followed by an additional irrigation of 250 mL normal sterile saline. Postdebridement ulceration measured 3.2 cm x 1.9 cm x 0.3 cm. Dakin's wet to dry dressing applied to ulcerative site. Dressing to be changed daily. He is to remain nonweightbearing to the right lower extremity with the assistance of walker/wheelchair. If weightbearing status poses problem he will be permitted to bear weight within a short CAM boot to the right foot with offloading padding about the first metatarsal head. Patient does have boot bedside. Medicine following for medical management, they are greatly appreciated Infectious disease following for antibiotic management. Plan to DC with oral doxycycline 100 mg twice daily and Augmentin 250 mg twice daily x 10 days per ID Vascular consulted to optimize blood flow to aid in healing of right foot ulceration. Plan for angio Tuesday per vascular. Wound nurse following for assistance in dressing changes Patient's MRI was negative for osteomyelitis. Following debridement this evening discussed continued follow as patient may require additional debridement and washout in OR setting. Patient is understanding of this. Jr. Boo Arriola.P.M. [facility] [phone]
[2024-04-23 23:00] VITALS: BP 154/63; PULSE 58; RESP 18; TEMP 36.2; O2SAT 98
[2024-04-23] MEDS: Doxycycline 100 MG CAPSULE PO (23:03)
[2024-04-23] MEDS: Nystatin Powder 15gm Bottle 1 APPLIC TOPICAL (23:44)
[2024-04-24] VITALS (11 sets, daily range): BP systolic 141–295; BP diastolic 50–83; PULSE 56–66; RESP 14–18; TEMP 36.5–37.1; O2SAT 93–98; BMI 32.4; BMI 31.5
[2024-04-24 00:09] LABS: Bedside Glucose 250 mg/dL (74-106)
[2024-04-24] MEDS: Nystatin Powder 15gm Bottle 1 APPLIC TOPICAL ×2 (06:25→15:16)
[2024-04-24] MEDS: 0.9% Normal Saline 1,000 ML IV.SOLN. 1000 ML OPERA.SITE (07:47)
[2024-04-24] MEDS: PureFlow B 3K Dialysis Soln 1 BAG 6 BAG PF (07:47)
[2024-04-24 08:13] LABS: Bedside Glucose 153 mg/dL (74-106)
[2024-04-24] MEDS: Clopidogrel Bisulfate 75 MG Tablet PO (11:33)
[2024-04-24] MEDS: Heparin Injection (Vial) 5,000 UNIT/ML VIAL 5000 UNIT SC (11:33)
[2024-04-24] MEDS: Aspirin E.C. 81 MG Tablet PO (11:33)
[2024-04-24] MEDS: Doxycycline 100 MG CAPSULE PO (11:33)
[2024-04-24] MEDS: Insulin Glargine-YFGN 100 UNIT/ML Pen 25 UNIT SC (11:34)
[2024-04-24] MEDS: DAKIN'S SOL HALF STRENGTH (=0.25%) TOPICAL (11:35)
[2024-04-24] MEDS: Insulin Lispro 100 UNIT/ML INSULN.PEN 10 UNIT SC ×2 (11:36→16:35)
[2024-04-24 12:02] LABS: Bedside Glucose 139 mg/dL (74-106)
--- NOTE | 2024-04-24 14:07 | PN.RENAL_ITS ---
Subjective Subjective seen on HD today. Hb same. WBC remains high Objective Data Objective Data Vital Signs: Vital Signs Temp Pulse Resp BP Pulse Ox O2 Del Method 98.1 F 63 14 156/78 H 97 Room Air 04/24/24 10:52 04/24/24 10:52 04/24/24 10:52 04/24/24 10:52 04/24/24 10:52 04/24/24 10:52 Oxygen Delivery Method Room Air Weight: 96.8 kg Body Mass Index (BMI) 31.5 Intake & Output: Intake and Output for Last 24 Hours 04/22/24 04/23/24 04/24/24 23:59 23:59 23:59 Intake Total 942.5 / 942.5 340 / 340 Output Total 2800 / 2800 Balance 942.5 / 942.5 340 / 340 -2800 / -2800 Lab / Micro Data 04/22/24 05:45 04/22/24 05:45 Labs: Laboratory Results - last 24 hr 04/23/24 16:48: POC Glucose 311 H 04/23/24 22:59: POC Glucose 250 H 04/24/24 07:55: POC Glucose 153 H 04/24/24 11:28: POC Glucose 139 H Micro: Microbiology 04/16/24 07:30 Tissue - Right Foot Gram Stain - Final 04/16/24 07:30 Tissue - Right Foot Wound Culture - Preliminary Strep anginosus 04/16/24 07:30 Tissue - Right Foot Anaerobic Culture - Final Anaerobic cocci Bacteroides fragilis 04/16/24 07:30 Wound - Right Foot Gram Stain - Final 04/16/24 07:30 Wound - Right Foot Wound Culture - Preliminary Strep anginosus Staphylococcus cohnii urealyti 04/14/24 11:10 Wound - Right Foot Gram Stain - Final 04/14/24 11:10 Wound - Right Foot Wound Culture - Final Strep anginosus 04/14/24 11:20 Blood Culture (Wb) - Anticubital Right Blood Culture - Final No growth in 5 days. 04/15/24 05:30 Wound - Right Foot Skin and Soft Tissue MRSA/MSSA (PCR - Final Physical Exam Narrative AAO3 s1s2, RRR Lung sounds clear. No wheezes, rhonchi or rales noted abdomen soft, nontender 1+ edema to bilateral lower legs AV fistula left forearm positive thrill and bruit Assessment & Plan Assessment/Plan (1) ESRD (end stage renal disease): PLAN: Impression/Plan: The patient is a 88-year-old male with past history of ESRD, type 2 diabetes mellitus, hypertension, PAD, peripheral neuropathy, HFpEF, paroxysmal atrial fibrillation not on OAC, and hyperlipidemia. Patient presented to hospital on 04/14/2024 with generalized weakness, myalgia, and numbness of bilateral feet. The patient was diagnosed with right lower extremity cellulitis with right diabetic foot ulcer. Patient was found to have streptococcal anginosus infection on wound culture. Patient is also status post aortogram with right lower extremity runoff on 04/18/2024 which revealed diffuse calcification of right posterior tibial artery with moderate stenosis of the distal third of artery with occlusion at the medial malleolus level. Nephrology is following for ESRD and dialysis management. ESRD. Patient dialyzes on TTS schedule at [facility]. HD today. seen on HD. see orders/flowsheets Hypertension. BP controlled Anemia in CKD. Hemoglobin has been stable during this admission. Continue [facility] with hemodialysis as outpatient.
--- NOTE | 2024-04-24 14:34 | PN.HOSP_ITS ---
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 leg with ulceration of other part of foot (04/14/24) Atherosclerosis of [place] arteries of other extremities with ulceration (04/14/24) Cellulitis of right lower limb (04/14/24) Local infection of the skin and subcutaneous tissue, unspecified (04/14/24) Non-pressure chronic ulcer of other part of unspecified foot with unspecified severity (04/14/24) Non-pressure chronic ulcer of other part of right foot with fat layer exposed (04/14/24) End stage renal disease (04/14/24) Dependence on renal dialysis (04/14/24) Objective Data Objective Data Vital Signs: Vital Signs Temp Pulse Resp BP Pulse Ox O2 Del Method 98.1 F 63 14 156/78 H 97 Room Air 04/24/24 10:52 04/24/24 10:52 04/24/24 10:52 04/24/24 10:52 04/24/24 10:52 04/24/24 10:52 Oxygen Delivery Method Room Air Weight: 213 lb 6.519 oz Body Mass Index (BMI) 31.5 Intake & Output: Intake and Output for Last 24 Hours 04/22/24 04/23/24 04/24/24 23:59 23:59 23:59 Intake Total 942.5 / 942.5 340 / 340 Output Total 2800 / 2800 Balance 942.5 / 942.5 340 / 340 -2800 / -2800 Lab / Micro Data 04/22/24 05:45 04/22/24 05:45 Labs: Laboratory Results - last 24 hr 04/23/24 16:48: POC Glucose 311 H 04/23/24 22:59: POC Glucose 250 H 04/24/24 07:55: POC Glucose 153 H 04/24/24 11:28: POC Glucose 139 H Micro: Microbiology 04/16/24 07:30 Tissue - Right Foot Gram Stain - Final 04/16/24 07:30 Tissue - Right Foot Wound Culture - Preliminary Strep anginosus 04/16/24 07:30 Tissue - Right Foot Anaerobic Culture - Final Anaerobic cocci Bacteroides fragilis 04/16/24 07:30 Wound - Right Foot Gram Stain - Final 04/16/24 07:30 Wound - Right Foot Wound Culture - Preliminary Strep anginosus Staphylococcus cohnii urealyti 04/14/24 11:10 Wound - Right Foot Gram Stain - Final 04/14/24 11:10 Wound - Right Foot Wound Culture - Final Strep anginosus 04/14/24 11:20 Blood Culture (Wb) - Anticubital Right Blood Culture - Final No growth in 5 days. 04/15/24 05:30 Wound - Right Foot Skin and Soft Tissue MRSA/MSSA (PCR - Final Physical Exam Narrative Seen and examined. No acute issues. Physical exam General: Alert, Oriented x3, Cooperative HEENT: Atraumatic, PERRLA, EOMI, Normocephalic Oral: No Gingival or Mucosal Lesions/ Ulcerations Neck: Supple, No JVD, Negative Carotid Bruits Chest wall/Lungs: Air entry diminished in bilateral lung bases. No crepitation/rhonchi Cardiovascular: Bradycardia, Normal S1, Normal S2, No M/G/R Abdomen: Bowel Sounds Present, Soft, Non Tender, Non-Distended : On hemodialysis. No renal angle tenderness. No suprapubic tenderness. Extremities: No edema, Capillary Refill Less than 3 Seconds Skin: Ulcer on the right foot/first MTP. Dry and wrinkled skin, loss of hair. Round with peripheral activity and central clearing suspicious of tinea cruris on right upper thigh Musculoskeletal: No Tenderness to Palpation of Joints or Extremities. ROM restricted Neurological: Cranial nerves II-XII grossly intact, DTR 2+/4. No acute focal neurological deficit. Psych/Mental Status: Flat affect. Dementia Assessment & Plan Assessment/Plan (1) Neuropathic ulcer of right foot with fat layer exposed: (2) Cellulitis of right lower limb: PLAN: Plan 88-year-old gentleman with CAD with cellulitis of right foot and lower leg with history of PAD. Right foot cellulitis * abx with vanc and pip/tazo * wound culture with Strep anginosus, anaerobic cocci, Bacteroides fragilis * Last seen by ID on the and discharge plan was for 10 days of doxycycline 100 BID and Augmentin 250 BID. 04/23: IV vancomycin and Zosyn discontinued and started on doxycycline and Augmentin as recommended by ID as mentioned above 04/24: Right upper thigh tinea cruris: Started on miconazole topical cream. Rest antibiotics to continue PAD * s/p aortogram RLE with angioplasty anterior tibial artery * followup with vascular surgery. * continue ASA, clopidogrel. Statin intolerance, so no statins ordered. Debility * PT OT * Plan is for SNF upon discharge Chronic conditions: * ESRD: on HD T,,Sa. * DM2: uncontrolled. a1c 9. glargine to 25 BID. 04/23: Glucose is still high therefore started on Humalog 10 units 3 times daily with meals. VTE prophylaxis: SQ heparin Disposition: plan for SNF with either [facility] or [facility]. Referrals sent 04/20. Awaiting on acceptance and insurance approval. No discharge until next week. Charges/Coding Visit Charges Inpatient E&M: 64439 Subs Hosp L2
--- NOTE | 2024-04-24 15:14 | CASEMGMT ---
Discharge Planning [facility] has obtained auth to admit. SW updated. Alanna Gaston DC Planning Asst.
--- NOTE | 2024-04-24 15:17 | PCM.TXEXTCAR ---
Diet Diet Order/Speech Therapy: 04/18/24 16:35 Diet: Renal - ConsCHO - Wade Cont Type of Dietary Supplement:: Dustin Diet Comments: fruit punch bid w/ Breakfast and Dinner How many daily calories?: 1999 calorie Routine Orders/Code Status Suppository Type: Dulcolax 10mg Suppository Frequency: Daily PRN DC O2, CPAP, BIPAP needs Additional Home O2 Discharge instructions: No Wound(s) foot: Wound Type: Neuropathic/Diabetic Foot Ulcer left buttox: Wound Type: Pressure Injury left inner buttox: Wound Type: Pressure Injury right foot: Wound Type: Neuropathic/Diabetic Foot Ulcer Dressing Change: Dakins moistened gauze left groin, angio site: Wound Type: Puncture Therapies Extremity Affected:: Bilateral Lower Physical Therapy: Eval and Treat Occupational Therapy: Eval and Treat Speech Therapy: Eval and Treat Problem/Diagnosis (1) Neuropathic ulcer of right foot with fat layer exposed: Status: Acute Code(s): L97.512 - Non-pressure chronic ulcer of other part of right foot with fat layer exposed (2) Cellulitis of right lower limb: Status: Acute Code(s): L03.115 - Cellulitis of right lower limb Plan 88-year-old gentleman with CAD with cellulitis of right foot and lower leg with history of PAD. Right foot cellulitis abx with vanc and pip/tazo wound culture with Strep anginosus, anaerobic cocci, Bacteroides fragilis Last seen by ID on the and discharge plan was for 10 days of doxycycline 100 BID and Augmentin 250 BID. 04/23: IV vancomycin and Zosyn discontinued and started on doxycycline and Augmentin as recommended by ID as mentioned above 04/24: Right upper thigh tinea cruris: Started on miconazole topical cream. Rest antibiotics to continue PAD s/p aortogram RLE with angioplasty anterior tibial artery followup with vascular surgery. continue ASA, clopidogrel. Statin intolerance, so no statins ordered. Debility PT OT Plan is for SNF upon discharge Chronic conditions: ESRD: on HD ,. DM2: uncontrolled. a1c 9. glargine to 25 BID. 04/23: Glucose is still high therefore started on Humalog 10 units 3 times daily with meals. VTE prophylaxis: SQ heparin Disposition: plan for SNF with either [facility] or [facility]. Referrals sent 04/20. Awaiting on acceptance and insurance approval. No discharge until next week. Allergies/Procedures Done in Hospital Allergies pioglitazone (From Actos) Allergy (Verified 04/14/24 10:28) fatigue simvastatin (From Zocor) Allergy (Verified 04/14/24 10:28) myalgia sitagliptin (From Januvia) Allergy (Verified 04/14/24 10:28) unknown Type of Care/Length of Stay Estimated LOS: Convalescent Care Less Than 30 days Type of Care Needed: Skilled Rehab Potential: Good Prognosis: Good Additional Orders/Day of Discharge Day of Discharge: 04/24/24 Dietary and Speech Recommendations Dietitian Recommendations/Changes: Continue Renal - Consistent Carb: Calorie-Controlled 2000kcal diet. Will d/c Dustin with medpass and will order fruit punch Dustin BID w/ breakfast and dinner per pt request. Will d/c ensure clear TID with medpass. Will continue to follow, monitor oral intakes and modify nutrition interventions as needed. Reviewed and approved by Heike Billingsley, VY, LD. Discharge Plan Admission Admit Date/Time: 04/14/24 13:21 Attending Provider: Juan Antonio Holden Primary Care Provider: Jean Yan Consulting Providers: Warren Mendoza; Manuel Alva; Jayla Osuna; Randal Shore; Earl White; Jarvis Oliveros; Earl Mora Discharge Orders/Prescriptions Prescriptions: New acetaminophen 325 mg Tablet 650 mg PO Q6H PRN PRN (Reason: Pain 1-10 Or Fever >100.7) Qty: 0 0RF amoxicillin-pot clavulanate 250-125 mg Tablet 1 tab PO BIDCM 6 Days Qty: 12 0RF clopidogrel 75 mg Tablet 75 mg PO DAILY 30 Days Qty: 30 2RF insulin lispro [Humalog KwikPen Insulin] 100 unit/mL Insulin Pen 10 unit subcut TIDAC Qty: 0 0RF Rx Instructions: Hold if glucose less than 130 mg/dl miconazole nitrate 2 % Cream 1 applic topical BID 14 Days Qty: 0 0RF Protocol: *Topical Application Instructions APPLICATION INSTRUCTIONS: right thigh, ring worm Rx Instructions: On right upper thigh groin site insulin lispro [Humalog KwikPen Insulin] 100 unit/mL Insulin Pen See Protocol subcut ACHS Qty: 0 0RF Protocol: 3. Sliding Scale Insulin Med Dosing Condition: 150-189 mg/dl = 1 unit Condition: 190-229 mg/dl = 2 units Condition: 230-269 mg/dl = 3 units Condition: 270-309 mg/dl = 4 units Condition: 310-349 mg/dl = 5 units Condition: 350-399 mg/dl = 6 units Condition: 400-449 mg/dl = 7 units Condition: Greater than 449 call physician Protocol Text: Suggested for: - Patients on Total Daily Insulin Dose of 37-55 units - Obese, infected, or steroid patients MEDIUM DOSING ALGORITHIM sennosides-docusate sodium [Stimulant Laxative Plus] 8.6-50 mg Tablet 2 tab PO BID PRN PRN (Reason: Constipation) Qty: 0 0RF doxycycline monohydrate 100 mg Capsule 100 mg PO BID 6 Days Qty: 0 0RF Continued cyanocobalamin (vitamin B-12) [Vitamin B-12] 1,000 mcg tablet 1,000 mcg PO .SUMOWEDFR cholecalciferol (vitamin D3) 1,000 UNIT tablet 5,000 unit PO DAILY Qty: 30 0RF torsemide 100 mg tablet 100 mg PO MOWEFR Patient Comments: on non-dialysis days aspirin [Adult Aspirin Regimen] 81 mg tablet,delayed release (DR/EC) 81 mg PO DAILY Changed insulin glargine 100 unit/mL (3 mL) insulin pen 20 unit SC DINNER 30 Days Qty: 0 0RF Rx Instructions: Hold if glucose less than 130 mg/dl Referrals / Follow Up: Jean Yan MD [Primary Care Provider] - Earl White MD [Med Staff - Active Staff] - Within 1 Month Manuel Alva MD [Med Staff - Consulting] - In 1 Week Warren Mendoza DPM [Med Staff - Active Staff] - See Referral Note (On 04/25/2024) Randal Shore MD [Med Staff - Active Staff] - Within 1 Month Disposition Disposition (needs filled in before D/C Order can be placed): [facility]
[2024-04-24] MEDS: Miconazole Nitrate Cream 1 APPLIC TOPICAL (15:25)
--- NOTE | 2024-04-24 15:29 | PCM.DC.SUM ---
Providers Date of Admission: 04/14/24 Date of Discharge: 04/24/24 Primary Care Physician: Dr. 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 Routine Comment: Reason for Consult:: Right foot wound Consult: Podiatry Routine Consulting Provider: Warren Mendoza Reason for Consult: R foot infection, concern for osteo EMERGENT Consult: No MD Notified: Yes Date Notified: 04/14/24 Time Notified: 13:32 Method of Notification: Verbal 04/16/24 10:10 Consult: Infectious Disease Routine Consulting Provider: Randal Shore Reason for Consult: De-escalate antibiotic coverage if possible EMERGENT Consult: No MD Notified: Yes Date Notified: 04/16/24 Time Notified: 11:05 Method of Notification: Text 04/16/24 12:40 Consult: Vascular Surgery Routine Consulting Provider: Earl White Reason for Consult: Ulceration with Arterial disease Left foot EMERGENT Consult: No MD Notified: Yes Date Notified: 04/16/24 Time Notified: 12:55 Method of Notification: office Reason For Visit: RLE CELLULITIS, CONCERN FOR OSTEO; RLE ANGIO Diagnosis Discharge Diagnosis (1) Neuropathic ulcer of right foot with fat layer exposed: Status: Acute Code(s): L97.512 - Non-pressure chronic ulcer of other part of right foot with fat layer exposed (2) Cellulitis of right lower limb: Status: Acute Code(s): L03.115 - Cellulitis of right lower limb Plan 88-year-old gentleman with CAD with cellulitis of right foot and lower leg with history of PAD. Right foot cellulitis abx with vanc and pip/tazo wound culture with Strep anginosus, anaerobic cocci, Bacteroides fragilis Last seen by ID on the and discharge plan was for 10 days of doxycycline 100 BID and Augmentin 250 BID. 2: IV vancomycin and Zosyn discontinued and started on doxycycline and Augmentin as recommended by ID as mentioned above 12/3: Right upper thigh tinea cruris: Started on miconazole topical cream. Rest antibiotics to continue. Patient got the pre-CERT. 6 more days of Augmentin and doxycycline prescribed as per ID recommendation. PAD s/p aortogram RLE with angioplasty anterior tibial artery followup with vascular surgery. continue ASA, clopidogrel. Statin intolerance, so no statins ordered. 04/24: Follow-up vascular surgery Dr. White in the office. Debility PT OT Plan is for SNF upon discharge Chronic conditions: ESRD: on HD ,,. DM2: uncontrolled. a1c 9. glargine to 25 BID. 04/23: Glucose is still high therefore started on Humalog 10 units 3 times daily with meals. 04/24: Morning glucose was low 66 in the morning, hypoglycemia. On hypoglycemia protocol. Lantus insulin dose decreased to 20 units twice daily. Humalog insulin 10 units 3 times daily AC. Continue Accu-Chek before meals and at bedtime with Humalog sliding scale coverage and hypoglycemia protocol. VTE prophylaxis: SQ heparin Discharge medication reconciliation done. Discharge follow-up instructions completed. Discharge process discussed with the patient and all questions were answered to patient's satisfaction. Follow with PCP in 1 to 2 weeks Total time spent, exact 35 minutes on discharge meds reconciliation, examination, coordination of care with nurses and ancillary staff, review of imaging and blood test and discussion with the patient on follow-up instructions. Medications at Discharge Home Medications cholecalciferol (vitamin D3) 25 mcg (1,000 unit) tablet 5,000 unit PO DAILY #30 tabs 05/02/20 aspirin 81 mg tablet,delayed release (Adult Aspirin Regimen) 81 mg PO DAILY 07/01/20 cyanocobalamin (vitamin B-12) 1,000 mcg tablet (Vitamin B-12) 1,000 mcg PO .SUMOWEDFR supplement 10/07/23 torsemide 100 mg tablet 100 mg PO MOWEFR water pill 04/14/24 acetaminophen 325 mg tablet 650 mg (2 x 325 mg) PO Q6H PRN PRN Pain 1-10 Or Fever >100.7 #0 tabs 04/24/24 amoxicillin 250 mg-potassium clavulanate 125 mg tablet 1 tab PO BIDCM 6 days #12 tabs 04/24/24 clopidogrel 75 mg tablet 75 mg PO DAILY 30 days #30 tabs 04/24/24 doxycycline monohydrate 100 mg capsule 100 mg PO BID 6 days #0 caps 04/24/24 insulin glargine 100 unit/mL (3 mL) subcutaneous pen 20 unit (0.2 mL) subcut DINNER diabetes 30 days #0 mL 04/24/24 insulin lispro 100 unit/mL subcutaneous pen (Humalog KwikPen (U-100) Insulin) 10 unit (0.1 mL) subcut TIDAC #0 mL 04/24/24 insulin lispro 100 unit/mL subcutaneous pen (Humalog KwikPen (U-100) Insulin) See Protocol subcut ACHS #0 mL 04/24/24 miconazole nitrate 2 % topical cream 1 applic topical BID 14 days #0 grams 04/24/24 sennosides 8.6 mg-docusate sodium 50 mg tablet (Stimulant Laxative Plus) 2 tab PO BID PRN PRN Constipation #0 tabs 04/24/24 Physical Exam Narrative Please see progress note on the same day Weight / BMI Weight Weight: 213 lb 6.519 oz Body Mass Index (BMI) 31.5 ABG / Lab / Microbiology Data 04/22/24 05:45 04/22/24 05:45 Laboratory: Laboratory Results - last 24 hr 04/23/24 16:48: POC Glucose 311 H 04/23/24 22:59: POC Glucose 250 H 04/24/24 07:55: POC Glucose 153 H 04/24/24 11:28: POC Glucose 139 H Microbiology: Microbiology 04/16/24 07:30 Wound - Right Foot Gram Stain - Final 04/16/24 07:30 Wound - Right Foot Wound Culture - Preliminary Strep anginosus Staphylococcus cohnii urealyti 04/16/24 07:30 Tissue - Right Foot Gram Stain - Final 04/16/24 07:30 Tissue - Right Foot Wound Culture - Preliminary Strep anginosus 04/16/24 07:30 Tissue - Right Foot Anaerobic Culture - Final Anaerobic cocci Bacteroides fragilis 04/14/24 11:10 Wound - Right Foot Gram Stain - Final 04/14/24 11:10 Wound - Right Foot Wound Culture - Final Strep anginosus 04/14/24 11:20 Blood Culture (Wb) - Anticubital Right Blood Culture - Final No growth in 5 days. 04/15/24 05:30 Wound - Right Foot Skin and Soft Tissue MRSA/MSSA (PCR - Final D/C Instructions DC O2, CPAP, BIPAP Needs Additional Home O2 Discharge instructions: No DC home with Oxygen: No Meaningful Use Info Meaningful Use Meaningful Use Diagnoses (Choose all that apply): None applicable Ischemic Stroke Statin Dosing Therapy Reference: STATIN DOSE THERAPY REFERENCE: * Patients > 75 years receive moderate or high dose statin therapy. * Patients 75 years or YOUNGER should receive HIGH intensity statin dose unless contraindicated. You will be required to document reason for non-treatment if statin daily dose does not meet guidelines. HIGH DOSE STATIN THERAPY DAILY Atorvastatin > than or = to 40 mg Rosuvastatin > than or = to 20 mg Amlodipine + Atorvastatin > than or = to 2.5/40 mg Ezetimibe + Simvastatin 10/80 mg Simvastatin 80mg Discharge Plan Admission Admit Date/Time: 04/14/24 13:21 Attending Provider: Juan Antonio Holden Primary Care Provider: Jean Yan Consulting Providers: Warren Mendoza; Manuel Alva; Jayla Osuna; Randal Shore; Earl White; Jarvis Oliveros; Earl Mora Discharge Orders/Prescriptions Prescriptions: New acetaminophen 325 mg Tablet 650 mg PO Q6H PRN PRN (Reason: Pain 1-10 Or Fever >100.7) Qty: 0 0RF amoxicillin-pot clavulanate 250-125 mg Tablet 1 tab PO BIDCM 6 Days Qty: 12 0RF clopidogrel 75 mg Tablet 75 mg PO DAILY 30 Days Qty: 30 2RF insulin lispro [Humalog KwikPen Insulin] 100 unit/mL Insulin Pen 10 unit subcut TIDAC Qty: 0 0RF Rx Instructions: Hold if glucose less than 130 mg/dl miconazole nitrate 2 % Cream 1 applic topical BID 14 Days Qty: 0 0RF Protocol: *Topical Application Instructions APPLICATION INSTRUCTIONS: right thigh, ring worm Rx Instructions: On right upper thigh groin site insulin lispro [Humalog KwikPen Insulin] 100 unit/mL Insulin Pen See Protocol subcut ACHS Qty: 0 0RF Protocol: 3. Sliding Scale Insulin Med Dosing Condition: 150-189 mg/dl = 1 unit Condition: 190-229 mg/dl = 2 units Condition: 230-269 mg/dl = 3 units Condition: 270-309 mg/dl = 4 units Condition: 310-349 mg/dl = 5 units Condition: 350-399 mg/dl = 6 units Condition: 400-449 mg/dl = 7 units Condition: Greater than 449 call physician Protocol Text: Suggested for: - Patients on Total Daily Insulin Dose of 37-55 units - Obese, infected, or steroid patients MEDIUM DOSING ALGORITHIM sennosides-docusate sodium [Stimulant Laxative Plus] 8.6-50 mg Tablet 2 tab PO BID PRN PRN (Reason: Constipation) Qty: 0 0RF doxycycline monohydrate 100 mg Capsule 100 mg PO BID 6 Days Qty: 0 0RF Continued cyanocobalamin (vitamin B-12) [Vitamin B-12] 1,000 mcg tablet 1,000 mcg PO .SUMOWEDFR cholecalciferol (vitamin D3) 1,000 UNIT tablet 5,000 unit PO DAILY Qty: 30 0RF torsemide 100 mg tablet 100 mg PO MOWEFR Patient Comments: on non-dialysis days aspirin [Adult Aspirin Regimen] 81 mg tablet,delayed release (DR/EC) 81 mg PO DAILY Changed insulin glargine 100 unit/mL (3 mL) insulin pen 20 unit SC DINNER 30 Days Qty: 0 0RF Rx Instructions: Hold if glucose less than 130 mg/dl Referrals / Follow Up: Jean Yan MD [Primary Care Provider] - Earl White MD [Med Staff - Active Staff] - Within 1 Month Manuel Alva MD [Med Staff - Consulting] - In 1 Week Warren Mendoza DPM [Med Staff - Active Staff] - See Referral Note (On 04/25/2024) Randal Shore MD [Med Staff - Active Staff] - Within 1 Month Disposition Disposition (needs filled in before D/C Order can be placed): [facility] Facility Charges/Coding Addendum Addendum: Please cancel the billing charge of the progress note on the same date. Visit Charges Inpatient E&M: 37806 Disch Hosp >30min
--- NOTE | 2024-04-24 16:21 | CASEMGMT ---
Patient is ready for discharge to [facility]. SW completed a 7000 in HENS system. Family will transport patient as transport was not available before 7p. There was some confusion with an appt with Dr Mendoza at the wound center. Family was notified to call the wound center tomorrow to schedule an appt with Dr Mendoza on . Plan: d/c to [facility] under skilled level of care on a convalescent stay. Physicians will transport patient. Amy VALDERRAMA
--- NOTE | 2024-04-24 16:24 | CASEMGMT ---
Discharge Planning Discharge orders, signed med list, and transport time faxed to [facility] (fax confirmation rec'd). Call also placed to Demetra @ [facility] with transport time. Family will transport patient, arriving to pick him up between 5:15-5:30ish. Nursing and SW updated. Alanna Gaston DC Planning Asst.
[2024-04-24] MEDS: Insulin Lispro 100 UNIT/ML INSULN.PEN SC (16:34)
--- NOTE | 2024-04-24 16:37 | PHA.DC.MR.R ---
Pharmacy [place] Med Reconciliation Pharmacy Service has performed discharge medication reconciliation for this patient. The patient's discharge medication list was reviewed for discrepancies and discrepancies were resolved. Medications at Discharge Home Medications cholecalciferol (vitamin D3) 25 mcg (1,000 unit) tablet 5,000 unit PO DAILY #30 tabs 05/02/20 aspirin 81 mg tablet,delayed release (Adult Aspirin Regimen) 81 mg PO DAILY 07/01/20 cyanocobalamin (vitamin B-12) 1,000 mcg tablet (Vitamin B-12) 1,000 mcg PO .SUMOWEDFR supplement 10/07/23 torsemide 100 mg tablet 100 mg PO MOWEFR water pill 04/14/24 acetaminophen 325 mg tablet 650 mg (2 x 325 mg) PO Q6H PRN PRN Pain 1-10 Or Fever >100.7 #0 tabs 04/24/24 amoxicillin 250 mg-potassium clavulanate 125 mg tablet 1 tab PO BIDCM 6 days #12 tabs 04/24/24 clopidogrel 75 mg tablet 75 mg PO DAILY 30 days #30 tabs 04/24/24 doxycycline monohydrate 100 mg capsule 100 mg PO BID 6 days #0 caps 04/24/24 insulin glargine 100 unit/mL (3 mL) subcutaneous pen 20 unit (0.2 mL) subcut DINNER diabetes 30 days #0 mL 04/24/24 insulin lispro 100 unit/mL subcutaneous pen (Humalog KwikPen (U-100) Insulin) 10 unit (0.1 mL) subcut TIDAC #0 mL 04/24/24 insulin lispro 100 unit/mL subcutaneous pen (Humalog KwikPen (U-100) Insulin) See Protocol subcut ACHS #0 mL 04/24/24 miconazole nitrate 2 % topical cream 1 applic topical BID 14 days #0 grams 04/24/24 sennosides 8.6 mg-docusate sodium 50 mg tablet (Stimulant Laxative Plus) 2 tab PO BID PRN PRN Constipation #0 tabs 04/24/24
[2024-04-24 17:06] LABS: Bedside Glucose 202 mg/dL (74-106)
--- NOTE | 2024-04-24 17:27 | NURSING ---
Report called to NIKIA Gerardo at this time at [facility].
== END 2024-04-24 18:06 | disposition skilled nursing facility (03) | DRG 299 ==
LOC: ED 11:12 → MS3 13:52 → PCU 04-18 16:22
PROVIDERS: Anesthesiology; Internal Medicine; Internal Medicine Infectious Disease; Internal Medicine Nephrology; Admitting Provider Internal Medicine; Emergency Provider Emergency Medicine; PCP Family Medicine; Visit Provider Internal Medicine
DX: E11.51 Type 2 diabetes mellitus with diabetic peripheral angiopathy without gangrene (principal); N18.6 End stage renal disease; I13.2 Hypertensive heart and chronic kidney disease with heart failure and with stage 5 chronic kidney disease, or end stage renal disease; I50.32 Chronic diastolic (congestive) heart failure; L03.115 Cellulitis of right lower limb; E11.621 Type 2 diabetes mellitus with foot ulcer; D63.1 Anemia in chronic kidney disease; I70.219 Atherosclerosis of native arteries of extremities with intermittent claudication, unspecified extremity; Z79.4 Long term (current) use of insulin; Z99.2 Dependence on renal dialysis; E78.5 Hyperlipidemia, unspecified; E11.22 Type 2 diabetes mellitus with diabetic chronic kidney disease; M60.9 Myositis, unspecified; E11.42 Type 2 diabetes mellitus with diabetic polyneuropathy; I25.10 Atherosclerotic heart disease of native coronary artery without angina pectoris; E11.65 Type 2 diabetes mellitus with hyperglycemia; L97.512 Non-pressure chronic ulcer of other part of right foot with fat layer exposed; B35.6 Tinea cruris; Z79.82 Long term (current) use of aspirin; Z79.2 Long term (current) use of antibiotics; Z79.84 Long term (current) use of oral hypoglycemic drugs; Z79.02 Long term (current) use of antithrombotics/antiplatelets
CPT/HCPCS: 36200; 36245; 36415; 37228; 37252; 37253; 73630; 73718; 75625; 75710; 76937; 80048; 80053; 80202; 82565; 82962; 83036; 83605; 84443; 84520; 85025; 85347; 85610; 85652; 86140; 87040; 87070; 87075; 87077; 87186; 87205; 87640; 90937; 93005; 93922; 94762; 97110; 97116; 97162; 97166; 97530; 97535; 97802; 97803; 99152; 99153; 99285; C1725; C1753; C1760; C1769; C1887; C1894; J7030; J7040; J7050; Q9967; A4216; G0257

== ENCOUNTER 2024-05-04 09:45 | Inpatient (IN) | payer MEDICARE, SELFPAY ==
[2024-05-04] VITALS (10 sets, daily range): BP systolic 123–158; BP diastolic 44–67; PULSE 41–64; RESP 16–22; TEMP 36.6–36.9; O2SAT 93–100; BMI 31.3; BMI 32.1
--- NOTE | 2024-05-04 09:59 | ED.RN ---
PT RECENTLY ADMITTED HERE AT [facility]. ON MDS3 AND THEN MOVED TO PCU. PT WENT FOR A FOLLOW UP AND THE PHYSICIAN ADVISE FAMILY TO BRING HIM INTO THE ED.
--- NOTE | 2024-05-04 10:25 | EKG12_ITS ---
Test Reason : Blood Pressure : */* mmHG Vent. Rate : 48 BPM Atrial Rate : * BPM P-R Int : * ms QRS Dur : 118 ms QT Int : 536 ms P-R-T Axes : * -2 118 degrees QTcB Int : 478 ms Atrial fibrillation with slow ventricular response Cannot rule out Anterior infarct , age undetermined ST & T wave abnormality, consider lateral ischemia Abnormal ECG Confirmed by DAVID AVILA, BRADY ([id number]), acquisitions editor GEE DUNCAN ([id number]) on 05/09/2024 1:31:35 P M Referred By: Confirmed By: BRADY HERNANDEZ MD
--- NOTE | 2024-05-04 10:30 | RAD_ITS ---
STUDY: X-RAY - RIGHT FOOT CLINICAL: Male, 89 years old. Wound TECHNIQUE: 3 view(s) of the foot. COMPARISON: None. FINDINGS: There is demineralization of the rear and midfoot bones. There is a plantar spur of the calcaneus. Normal visualized subtalar, talonavicular, calcaneocuboid, tarsal and tarsometatarsal articulations. Normal metatarsi. There is mild degenerative arthrosis of the metatarsophalangeal joint of the hallux . Normal tibial and fibular sesamoid bones. Normal interphalangeal joint of the great toe. Normal phalanges of the great toe. Normal second through fifth metatarsophalangeal joints. Normal interphalangeal joints and phalanges of the lesser toes. There are vascular calcifications. There is no fracture. There is no cortical destruction. RAD/Foot min 3 Views IMPRESSION: Arthritic change with heel spur. Vascular calcifications. No focal destruction seen. Electronically Signed: Chung Dove MD at 10:42 EST ,
--- NOTE | 2024-05-04 10:31 | ED.VIS.LOWEX ---
HPI History of Present Illness Chief Complaint: Wound Informant: patient and family Narrative Narrative: 89-year-old male who recently had a stay here in the hospital for his right foot. He had a wound as well as some cellulitis around it, he was evaluated by podiatry and a debridement was done, infectious disease, vascular and he had an angioplasty done in one of the infrapopliteal arteries, and [facility] for the past week or so. He has been followed by the nurses and Dr. Pierson there. According to the family, they are seeing the wound for the first time, but the correction staff told them that it is getting worse and not better despite being on doxycycline and Augmentin, and they fear there is tissue that is getting worse. The patient denies having any pain, systemic symptoms, he states he feels fine. 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 Abnormal electrocardiogram Home Medications ?Medication ?Instructions ?Recorded ?Last Taken ?Type cholecalciferol (vitamin D3) 25 5,000 unit PO DAILY #30 tabs 05/02/20 11/06/21 Rx mcg (1,000 unit) tablet aspirin 81 mg tablet,delayed 81 mg PO DAILY 07/01/20 11/06/21 History release (Adult Aspirin Regimen) cyanocobalamin (vitamin B-12) 1,000 mcg PO .SUMOWEDFR supplement 10/07/23 Unknown History 1,000 mcg tablet (Vitamin B-12) torsemide 100 mg tablet 100 mg PO MOWEFR water pill 04/14/24 05/03/24 History acetaminophen 325 mg tablet 650 mg (2 x 325 mg) PO Q6H PRN PRN 04/24/24 Unknown Rx Pain 1-10 Or Fever >100.7 #0 tabs amoxicillin 250 mg-potassium 1 tab PO BIDCM 6 days #12 tabs 04/24/24 Unknown Rx clavulanate 125 mg tablet clopidogrel 75 mg tablet 75 mg PO DAILY 30 days #30 tabs 04/24/24 Unknown Rx doxycycline monohydrate 100 mg 100 mg PO BID 6 days #0 caps 04/24/24 Unknown Rx capsule insulin glargine 100 unit/mL (3 20 unit (0.2 mL) subcut DINNER 04/24/24 Unknown Rx mL) subcutaneous pen diabetes 30 days #0 mL insulin lispro 100 unit/mL 10 unit (0.1 mL) subcut TIDAC #0 mL 04/24/24 Unknown Rx subcutaneous pen (Humalog KwikPen (U-100) Insulin) insulin lispro 100 unit/mL See Protocol subcut ACHS #0 mL 04/24/24 Unknown Rx subcutaneous pen (Humalog KwikPen (U-100) Insulin) miconazole nitrate 2 % topical 1 applic topical BID 14 days #0 04/24/24 Unknown Rx cream grams sennosides 8.6 mg-docusate sodium 2 tab PO BID PRN PRN Constipation 04/24/24 Unknown Rx 50 mg tablet (Stimulant Laxative #0 tabs Plus) Allergy/AdvReac Type Severity Reaction Status Date / Time pioglitazone (From Actos) Allergy fatigue Verified 05/04/24 09:46 simvastatin (From Zocor) Allergy myalgia Verified 05/04/24 09:46 sitagliptin (From Januvia) Allergy unknown Verified 05/04/24 09:46 Family History Mother Hypertension Father Diabetes COPD (chronic obstructive pulmonary disease) Surgical History History of cataract extraction History of ligation of vein History of arteriovenostomy for renal dialysis History of inguinal hernia repair History of appendectomy Social History Smoking Status: Never smoker alcohol intake: never substance use type: does not use caffeine: Yes Type: coffee Number of servings: 1 what type of physical activity do you participate in: none seatbelt use: always do you feel safe at home: Yes ROS ROS ED Constitutional Constitutional ED: Denies chills or fever(s) Cardiovascular Cardiovascular: Denies chest pain or palpitations Respiratory/Chest Respiratory/Chest: Denies cough or dyspnea Gastrointestinal Gastrointestinal: Denies abdominal pain Musculoskeletal Musculoskeletal: Denies extremity pain or neck pain Integumentary Reports wounds; Denies Abrasions or rash Neurologic Neurologic: Denies paresthesias or weakness EXAM Physical Exam Const Vital Signs: 05/04/24 09:46 05/04/24 09:47 05/04/24 10:47 Temperature 98.2 F 98.1 F 97.9 F Temperature Source Oral Oral Oral Pulse Rate 43 L 56 L 41 L Respiratory Rate 18 21 H 21 H Blood Pressure 148/56 H 140/62 H 127/47 H Blood Pressure Mean 86 88 73 Pulse Ox 99 93 100 Oxygen Delivery Method Room Air Room Air Room Air 05/04/24 11:00 05/04/24 11:45 05/04/24 12:00 Temperature 98.2 F 98.4 F Temperature Source Oral Oral Pulse Rate 41 L 47 L 45 L Respiratory Rate 20 H 20 H 22 H Blood Pressure 127/44 H 148/51 H 138/55 H Blood Pressure Mean 71 83 82 Pulse Ox 99 96 96 Oxygen Delivery Method Room Air Room Air Room Air Positive well nourished and well developed General Appearance ED: well developed and NAD Neck full ROM and supple Resp normal respiratory effort, no retractions and clear to auscultation bilaterally Cardio Rate: Negative for bradycardia or tachycardic Rhythm: abnormal rhythm irregularly irregular GI non-tender and non-distended Auscultation: normoactive bowel sounds Palpation: soft Back/Spine normal ROM and normal to inspection Extremity Extremity Narrative: Edema both legs. No wounds on the left foot, cap refill 3 seconds. On the right foot there is an ulcerated wound plantar aspect of the foot just proximal to the first metatarsal head, appears to have been debrided there is some eschar in part of it, no bone exposed. The right toe distal to this is completely ischemic and insensate. None of this area is tender. There is erythema throughout the plantar aspect of the foot, nontender. Very faint erythema up the leg that is nontender. Cap refill is 3-4 seconds in the toes that appear to be perfused. Neuro oriented x3, no focal motor deficits and no sensory deficits noted Sensorium / Orientation: alert Psych mental status grossly normal and thought process normal Skin Skin Narrative: Right foot wounds see above no other wounds or rashes Rashes: no rashes MDM MDM MDM Narrative Medical decision making narrative: I reviewed multiple documents from the patient's recent inpatient stay. It appears most of this is probably ischemic, and after the angioplasty they were hoping that his wounds would heal, however it does not appear that is the case, and his great toe is ischemic. He may need an amputation. Discussed with hospitalist for admission. History & Record Review Additional record(s) reviewed:: Prior inpatient record and Other ([facility] records, of limited value except for medication list and confirming DNR CCA status) Lab Data Attestation: I reviewed the patient's lab results. Labs: Laboratory Results - last 24 hr 05/04/24 10:00 WBC 9.2 RBC 3.86 L Hgb 11.3 L Hct 36.7 L MCV 95.1 H MCH 29.3 MCHC 30.8 L RDW Std Deviation 53.0 H RDW Coeff of Frances 15.4 H Plt Count 288 MPV 11.4 Immature Gran % (Auto) 0.800 Neut % (Auto) 63.1 Lymph % (Auto) 22.5 [place] % (Auto) 10.2 H Eos % (Auto) 2.4 Baso % (Auto) 1.0 Absolute Neuts (auto) 5.8 Absolute Lymphs (auto) 2.08 Nucleated RBC % 0 ESR 81 H Sodium 133 L Potassium 3.7 Chloride 94 L Carbon Dioxide 31.0 Anion Gap 7 BUN 31 H Creatinine 4.58 H Estim Creat Clear Calc 13.00 Est GFR (MDRD) Af Amer 16 L Est GFR (MDRD) Non-Af 13 L BUN/Creatinine Ratio 6.8 L Glucose 297 H Calcium 9.4 C-React Prot Ext Range 72.90 H Radiography Diagnostic Testing: Clinical Impression(s) from Imaging Studies Foot X-Ray 05/04/24 10:30 IMPRESSION: Arthritic change with heel spur. Vascular calcifications. No focal destruction seen. Electronically Signed: Chung Dove MD at 10:42 EST , Three-view x-ray right foot no bony erosions on my interpretation Rhythm Strip Rhythm Strip: A-fib Rate: 55 Ectopy: None EKG Initial EKG: Attestation: I personally reviewed and interpreted this EKG as follows: Interpretation: No Acute Injury Pattern and Atrial Fibrillation Prior EKG tracings: available for review Prior: Unchanged Management Discussion w/another healthcare provider: Hospitalist and Resident Programs Assistant (vascular, podiatry) Discharge Plan Dx/Rx/DC Orders Clinical Impression: Ischemic ulcer of toe of right foot, Chronic kidney disease, stage V requiring chronic dialysis, Diabetes mellitus with diabetic polyneuropathy, Ischemic toe Disposition Disposition: Acute Care Hospital [facility]
[2024-05-04 10:53] LABS: Erythrocyte Sedimentation Rate 81 mm/hr (0-20)
[2024-05-04 10:54] LABS: Anion Gap 7 (5-15); BUN 31 mg/dL (7-18); BUN/Creat Ratio 6.8 RATIO (10-20); Calcium,Total 9.4 mg/dL (8.5-10.1); Chloride 94 mmol/L (98-107); Creatinine, Serum 4.58 mg/dL (0.70-1.30); EST Glomerular Filtration Rate 13 mL/min (>60); Est Glom Filt Rate - Afr Amer 16 mL/min (>60); Glucose 297 mg/dL (74-106); Potassium 3.7 mmol/L (3.5-5.1); Sodium Level 133 mmol/L (136-145)
[2024-05-04 10:55] LABS: Absolute Lymphocyte Count 2.08 X10^3/uL (0.83-4.51); Absolute Neutrophil Count 5.8 X10^3/uL (2.0-7.7); Basophil# 0.09 X10^3/uL; Eosinophil# 0.22 X10^3/uL; Eosinophils% 2.4 % (0-5); Hematocrit 36.7 % (40-54); Hemoglobin 11.3 g/dL (13.0-16.5); Lymphocyte # 2.08 X10^3/ul (0.83-4.51); Lymphocyte % 22.5 % (19-41); Mean Corp Hgb Conc 30.8 g/dL (32-36); Mean Corpuscular Hgb 29.3 pg (27.0-32.0); Mean Corpuscular Volume 95.1 fL (80-94); Mean Platelet Vol. 11.4 fl (6.2-12.0); Monocyte# 0.94 X10^3/uL; Monocyte% 10.2 % (0-10); NRBC Flagged by Analyzer 0 % (0-5); Neutrophil # 5.83 X10^3/uL (2.7-7.7); Neutrophil % 63.1 % (47-70); Platelet Count 288 K/mm3 (150-450); RBC Distribution Width CV 15.4 % (11.6-14.6); Red Blood Count 3.86 M/mm3 (4.6-6.2); White Blood Count 9.2 K/mm3 (4.4-11.0)
--- NOTE | 2024-05-04 10:58 | ED.RN ---
PT IS ON DIALYSIS AND RECEIVES IT ON , , AND TUE. FAMILY CONCERNED IF ADMITTED THAT WE MAKE SURE HE GETS HIS DIALYSIS
--- NOTE | 2024-05-04 13:55 | ADUL_ITS ---
Reason For Study: S/P Right AT angioplasty Right Velocities Ext. Iliac Artery, dist = 46.5 cm./sec. Common Femoral Artery, mid = 93 cm./sec. Supf Femoral Artery, prox = 85.7 cm./sec. Supf Femoral Artery, mid = 43.9 cm./sec. Supf Femoral Artery, dist. = 55.9 cm./sec. Profunda Femoral Artery = 52.7 cm./sec. Popliteal Artery, mid = 68 cm./sec. Post. Tibial Artery, prox = 39.2 cm./sec. Post. Tibial Artery, mid = 50.5 cm./sec. Post. Tibial Artery, dist = 23.4 cm./sec. Ant. Tibial Artery, prox = 65.8 cm./sec. Ant. Tibial Artery, mid = 78.7 cm./sec. Ant. Tibial Artery, dist = 94.2 cm./sec. Peroneal artery, No flow. Procedure Exam performed portable in patient room. /US Art Duplex Unilat Lower Ext Interpretation Summary Right SFA/popliteal artery patent with no stenosis. Right anterior tibial artery, posterior tibial artery patent with no stenosis Right peroneal artery occluded Ordering Physician: Salma Cervantes Referring Physician: Kiran Yan Performed By: Anne-Marie Monzon RVT
--- NOTE | 2024-05-04 13:56 | ART_ITS ---
Reason For Study: S/P RLE AT ANGIO Procedure A bilateral lower extremity continuous wave Doppler with analog waveform analysis and ankle brachial indexes. Left Segmental Pressures Unable to acquire Lt Brachial BP due to AVF. Left posterior tibial artery = >254mmHg. Left dorsalis pedis artery = >254mmHg. Left digit = 65 mmHg. The left posterior tibial artery waveforms are biphasic. The left dorsalis pedis waveforms are monophasic. Right Segmental Pressures Right brachial= 157mmHg. Right posterior tibial artery = >254mmHg. Right dorsalis pedis artery = >254mmHg. The right posterior tibial artery waveforms are biphasic. The right dorsalis pedis waveforms are biphasic. Indices The right ankle brachial index by the posterior tibial artery is N/C. The right ankle brachial index by the dorsalis pedis is N/C. Unable to acquire toe pressure due to wound/necrosis. The left ankle brachial index by the posterior tibial artery is N/C. The left ankle brachial index by the dorsalis pedis is N/C. The left digital-brachial index is 0.41. VL/Ankle Brachial Index Interpretation Summary Right RAN not able to be obtained due to non-compressible vessels. Doppler/PVR waveforms of the right ankle moderately diminished at rest. TBI and digit waveforms not obtained . Left RAN not able to be obtained due to non-compressible vessels. Doppler/PVR w aveforms of the left ankle moderately diminished at rest. TBI diminished consistent with disease. Ordering Physician: Salma Cervantes Referring Physician: Umang Yan Performed By: Wali Tam RVT
--- NOTE | 2024-05-04 15:14 | PCM.CONS.GEN ---
Assessment & Plan Assessment/Plan (1) Other acute osteomyelitis, right ankle and foot: PLAN: Exam performed. Radiographs, vital signs, lab work reviewed. Patient has nonhealing wound with worsening chronic ischemia. Recommended vascular evaluation and will await their recommendation but my plan at current is to perform a right foot partial first ray amputation on 05/07/2024 at 11 AM. Recommend empiric antibiotic Recommend nonweightbearing to right foot Recommend daily Betadine dressings Will plan for surgical intervention on Tuesday unless vascular feels they require additional intervention prior to definitive amputation (2) Non-pressure chronic ulcer of other part of right foot with necrosis of bone: (3) Type 2 diabetes mellitus with diabetic polyneuropathy: HPI Consult Data Date of Consult: 05/04/24 HPI Narrative HPI Narrative: PERLA LUBIN, is a 89 M who presents with history of diabetes and chronic ulceration of right foot patient. Patient had recent angioplasty per Dr. White. Patient notes that he is increased swelling redness as well as degeneration of the tissue of the right great toe. [facility] due to concerning breakdown of the right foot with redness spreading from the foot into the leg. Patient denies any constitutional symptoms Dems or any intractable pain at current. No other complaints. 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 Abnormal electrocardiogram Home Medications ?Medication ?Instructions ?Recorded ?Last Taken ?Type cholecalciferol (vitamin D3) 25 5,000 unit PO DAILY supplement #30 05/02/20 11/06/21 Rx mcg (1,000 unit) tablet tabs aspirin 81 mg tablet,delayed 81 mg PO DAILY heart health 07/01/20 11/06/21 History release (Adult Aspirin Regimen) cyanocobalamin (vitamin B-12) 1,000 mcg PO .SUMOWEDFR supplement 10/07/23 Unknown History 1,000 mcg tablet (Vitamin B-12) torsemide 100 mg tablet 100 mg PO MOWEFR water pill 04/14/24 05/03/24 History acetaminophen 325 mg tablet 650 mg (2 x 325 mg) PO Q6H PRN PRN 04/24/24 Unknown Rx Pain 1-10 Or Fever >100.7 #0 tabs clopidogrel 75 mg tablet 75 mg PO DAILY 30 days #30 tabs 04/24/24 Unknown Rx insulin glargine 100 unit/mL (3 20 unit (0.2 mL) subcut DINNER 04/24/24 Unknown Rx mL) subcutaneous pen diabetes 30 days #0 mL insulin lispro 100 unit/mL 10 unit (0.1 mL) subcut TIDAC #0 mL 04/24/24 Unknown Rx subcutaneous pen (Humalog KwikPen (U-100) Insulin) miconazole nitrate 2 % topical 1 applic topical BID ring worm 14 04/24/24 Unknown Rx cream days #0 grams sennosides 8.6 mg-docusate sodium 2 tab PO BID PRN PRN Constipation 04/24/24 Unknown Rx 50 mg tablet (Stimulant Laxative #0 tabs Plus) insulin lispro 100 unit/mL See Protocol subcut ACHS dm 05/04/24 Unknown History subcutaneous pen (Humalog KwikPen (U-100) Insulin) Allergy/AdvReac Type Severity Reaction Status Date / Time pioglitazone (From Actos) Allergy fatigue Verified 05/04/24 09:46 simvastatin (From Zocor) Allergy myalgia Verified 05/04/24 09:46 sitagliptin (From Januvia) Allergy unknown Verified 05/04/24 09:46 Family History Mother Hypertension Father Diabetes COPD (chronic obstructive pulmonary disease) Surgical History History of cataract extraction History of ligation of vein History of arteriovenostomy for renal dialysis History of inguinal hernia repair History of appendectomy Social History Smoking Status: Never smoker alcohol intake: never substance use type: does not use caffeine: Yes Type: coffee Number of servings: 1 what type of physical activity do you participate in: none seatbelt use: always do you feel safe at home: Yes ROS Constitutional Constitutional: Reports weakness; Denies headache(s), increased appetite or stops breathing during sleep Eyes Eyes: Denies acute decrease in peripheral vision, blindness, blurry vision, change in vision, puffy eyes or requires corrective lenses ENT HEENT: Denies none, abnormal hearing or disequillibrium Cardiovascular Cardiovascular: Denies none, abdominal bloating or arrhythmia on telemetry Respiratory/Chest Respiratory/Chest: Denies change in mental status, chest tightness or cough Gastrointestinal Gastrointestinal: Denies abdominal pain, anorexia or change in stool character Physical Exam Narrative Vascular: Dorsalis pedis posterior tibial pulses diminished over the right foot. Atrophic skin changes noted foot is warm to palpation. Some edema and warmth noted. Absent digital hair growth noted. Necrosis to right great toe and plantar first MPJ. Neurologic: Absent light touch protective sensation to right foot and left foot. Dermatologic: Dry necrosis to the distal aspect of the hallux as well as the plantar aspect of the first MPJ with periwound erythema edema and warmth extending into the midfoot. Musculoskeletal: No gross deformity contributing to wound formation. No sign DVT. Muscular strength diminished 4 out of 5 to bilateral lower extremity compartments Lab / Micro Data 05/04/24 10:00 05/04/24 10:00 Labs: Laboratory Results - last 24 hr 05/04/24 10:00: WBC 9.2, RBC 3.86 L, Hgb 11.3 L, Hct 36.7 L, MCV 95.1 H, MCH 29.3, MCHC 30.8 L, RDW Std Deviation 53.0 H, RDW Coeff of Frances 15.4 H, Plt Count 288, MPV 11.4, Immature Gran % (Auto) 0.800, Neut % (Auto) 63.1, Lymph % (Auto) 22.5, [place] % (Auto) 10.2 H, Eos % (Auto) 2.4, Baso % (Auto) 1.0, Absolute Neuts (auto) 5.8, Absolute Lymphs (auto) 2.08, Nucleated RBC % 0, ESR 81 H, Sodium 133 L, Potassium 3.7, Chloride 94 L, Carbon Dioxide 31.0, Anion Gap 7, BUN 31 H, Creatinine 4.58 H, Estim Creat Clear Calc 13.00, Est GFR (MDRD) Af Amer 16 L, Est GFR (MDRD) Non-Af 13 L, BUN/Creatinine Ratio 6.8 L, Glucose 297 H, Calcium 9.4, C-React Prot Ext Range 72.90 H Rhythm Strip Rhythm Strip: A-fib Rate: 55 Ectopy: None Imaging Radiology Impression Foot X-Ray 05/04/24 10:30 IMPRESSION: Arthritic change with heel spur. Vascular calcifications. No focal destruction seen. Electronically Signed: Chung Dove MD at 10:42 EST ,
--- NOTE | 2024-05-04 15:30 | WOUNDNOTE ---
wound photo: right foot
--- NOTE | 2024-05-04 15:30 | WOUNDNOTE ---
wound photo: right foot
[2024-05-04] MEDS: Insulin Lispro 100 UNIT/ML INSULN.PEN 10 UNIT SC (15:35)
[2024-05-04] MEDS: Insulin Lispro 100 UNIT/ML INSULN.PEN SC ×2 (15:35→22:38)
[2024-05-04 15:49] LABS: Bedside Glucose 342 mg/dL (74-106)
--- NOTE | 2024-05-04 16:18 | HP.PCM.HOS_ITS ---
HPI - General General Date of Admission: 05/04/24 HPI Narrative PERLA LUBIN, is a 89 M who presents to the hospital from the care home because of worsening wound on his right foot. He was recently admitted a couple of weeks ago for diabetic foot ulcer that was infected. He did complete antibiotics at the care home. He comes back in because the wound per the care home is worse in the ED physician who took care of him this time had also seen him previously and concurs that it looks worse and is different. No signs of infection but his right great toe is necrotic with a clean line of demarcation he also has a necrotic ball of his foot as well. He did have a stent placed in his right anterior tibial artery by vascular surgery, and he has heavy calcifications in his arterial system on the right. He has decree sensation on all of his digits on his right foot but does have more sensation in his midfoot. He has been taking his aspirin and Plavix as prescribed. In the ER, he is denying any pain and says that he feels well otherwise, no fevers or chills, no leukocytosis. 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 Abnormal electrocardiogram Home Medications ?Medication ?Instructions ?Recorded ?Last Taken ?Type cholecalciferol (vitamin D3) 25 5,000 unit PO DAILY supplement #30 05/02/20 11/06/21 Rx mcg (1,000 unit) tablet tabs aspirin 81 mg tablet,delayed 81 mg PO DAILY heart health 07/01/20 11/06/21 History release (Adult Aspirin Regimen) cyanocobalamin (vitamin B-12) 1,000 mcg PO .SUMOWEDFR supplement 10/07/23 Unknown History 1,000 mcg tablet (Vitamin B-12) torsemide 100 mg tablet 100 mg PO MOWEFR water pill 04/14/24 05/03/24 History acetaminophen 325 mg tablet 650 mg (2 x 325 mg) PO Q6H PRN PRN 04/24/24 Unknown Rx Pain 1-10 Or Fever >100.7 #0 tabs clopidogrel 75 mg tablet 75 mg PO DAILY 30 days #30 tabs 04/24/24 Unknown Rx insulin glargine 100 unit/mL (3 20 unit (0.2 mL) subcut DINNER 04/24/24 Unknown Rx mL) subcutaneous pen diabetes 30 days #0 mL insulin lispro 100 unit/mL 10 unit (0.1 mL) subcut TIDAC #0 mL 04/24/24 Unknown Rx subcutaneous pen (Humalog KwikPen (U-100) Insulin) miconazole nitrate 2 % topical 1 applic topical BID ring worm 14 04/24/24 Unknown Rx cream days #0 grams sennosides 8.6 mg-docusate sodium 2 tab PO BID PRN PRN Constipation 04/24/24 Unknown Rx 50 mg tablet (Stimulant Laxative #0 tabs Plus) insulin lispro 100 unit/mL See Protocol subcut ACHS dm 05/04/24 Unknown History subcutaneous pen (Humalog KwikPen (U-100) Insulin) Allergy/AdvReac Type Severity Reaction Status Date / Time pioglitazone (From Actos) Allergy fatigue Verified 05/04/24 09:46 simvastatin (From Zocor) Allergy myalgia Verified 05/04/24 09:46 sitagliptin (From Januvia) Allergy unknown Verified 05/04/24 09:46 Family History Mother Hypertension Father Diabetes COPD (chronic obstructive pulmonary disease) Surgical History History of cataract extraction History of ligation of vein History of arteriovenostomy for renal dialysis History of inguinal hernia repair History of appendectomy Social History Smoking Status: Never smoker alcohol intake: never substance use type: does not use caffeine: Yes Type: coffee Number of servings: 1 what type of physical activity do you participate in: none seatbelt use: always do you feel safe at home: Yes ROS Constitutional Constitutional: Denies chills, fatigue, fever(s) or malaise Eyes Eyes: Denies blurry vision ENT HEENT: Denies headache(s) or nasal discharge Cardiovascular Cardiovascular: Denies chest pain, dyspnea on exertion or syncope Respiratory/Chest Respiratory/Chest: Denies cough, shortness of breath at rest or shortness of breath with exertion Gastrointestinal Gastrointestinal: Denies constipation, diarrhea, nausea or vomiting Genitourinary Genitourinary: Denies dysuria Integumentary Integumentary: Reports wounds Neurologic Neurologic: Denies focal weakness, numbness or tremor(s) Psychiatric Psychiatric: Denies anxiety or depression Vital Signs Vital Signs Vital Signs: 05/04/24 09:46 05/04/24 09:47 05/04/24 10:47 Temperature 98.2 F 98.1 F 97.9 F Temperature Source Oral Oral Oral Pulse Rate 43 L 56 L 41 L Respiratory Rate 18 21 H 21 H Respiratory Effort Respiratory Depth Respiratory Pattern Blood Pressure 148/56 H 140/62 H 127/47 H Blood Pressure Mean 86 88 73 Blood Pressure Source Blood Pressure Position Blood Pressure Location Pulse Ox 99 93 100 Oxygen Delivery Method Room Air Room Air Room Air 05/04/24 11:00 05/04/24 11:45 05/04/24 12:00 Temperature 98.2 F 98.4 F Temperature Source Oral Oral Pulse Rate 41 L 47 L 45 L Respiratory Rate 20 H 20 H 22 H Respiratory Effort Respiratory Depth Respiratory Pattern Blood Pressure 127/44 H 148/51 H 138/55 H Blood Pressure Mean 71 83 82 Blood Pressure Source Blood Pressure Position Blood Pressure Location Pulse Ox 99 96 96 Oxygen Delivery Method Room Air Room Air Room Air 05/04/24 12:55 05/04/24 13:43 05/04/24 13:43 Temperature 98.4 F 97.8 F Temperature Source Oral Pulse Rate 42 L 59 L Respiratory Rate 21 H 16 Respiratory Effort Normal Respiratory Depth Normal Respiratory Pattern Normal Blood Pressure 139/59 H 158/67 H Blood Pressure Mean 85 97 Blood Pressure Source Monitor Blood Pressure Position Semi-Fowlers Blood Pressure Location Right Arm Pulse Ox 96 100 Oxygen Delivery Method Room Air Room Air 05/04/24 14:00 Temperature 97.8 F Temperature Source Oral Pulse Rate 59 L Respiratory Rate 16 Respiratory Effort Respiratory Depth Respiratory Pattern Blood Pressure 158/67 H Blood Pressure Mean 97 Blood Pressure Source Blood Pressure Position Blood Pressure Location Pulse Ox 100 Oxygen Delivery Method Room Air Weight Weight: 204 lb 15.984 oz Body Mass Index (BMI) 32.1 Physical Exam Narrative General: Alert, Oriented x3, Cooperative, No apparent distress HEENT: Atraumatic, PERRLA, EOMI, Normocephalic Oral: Moist Mucosa Neck: Supple, No JVD Lungs: Clear to auscultation, Normal air movement, No rhonchi, No wheeze, No rales Cardiovascular: Regular rate, Regular Rhythm, Normal S1, Normal S2, No murmurs Abdomen: Soft, Non Tender, Non-Distended, No Hepato-splenomegaly Extremities: Edema, Capillary Refill Less than 3 Seconds Skin: No rashes, No breakdown, no cellulitis Musculoskeletal: Necrotic right great toe with a clean line of demarcation, necrosis on the ball of his right foot on the medial aspect Neurological: No focal neurological deficits, Motor Exam 5/5 strength throughout, significantly diminished sensation in his right foot most significant past midfoot on his digits Psych/Mental Status: Normal Affect, Appropriate Results Lab / Micro Data 05/04/24 10:00 05/04/24 10:00 Labs: Laboratory Results - last 24 hr 05/04/24 10:00: WBC 9.2, RBC 3.86 L, Hgb 11.3 L, Hct 36.7 L, MCV 95.1 H, MCH 29.3, MCHC 30.8 L, RDW Std Deviation 53.0 H, RDW Coeff of Frances 15.4 H, Plt Count 288, MPV 11.4, Immature Gran % (Auto) 0.800, Neut % (Auto) 63.1, Lymph % (Auto) 22.5, [place] % (Auto) 10.2 H, Eos % (Auto) 2.4, Baso % (Auto) 1.0, Absolute Neuts (auto) 5.8, Absolute Lymphs (auto) 2.08, Nucleated RBC % 0, ESR 81 H, Sodium 133 L, Potassium 3.7, Chloride 94 L, Carbon Dioxide 31.0, Anion Gap 7, BUN 31 H, C reatinine 4.58 H, Estim Creat Clear Calc 13.00, Est GFR (MDRD) Af Amer 16 L, Est GFR (MDRD) Non-Af 13 L, BUN/Creatinine Ratio 6.8 L, Glucose 297 H, Calcium 9.4, C-React Prot Ext Range 72.90 H 05/04/24 15:30: POC Glucose 342 H Rhythm Strip Rhythm Strip: A-fib Rate: 55 Ectopy: None Imaging Radiology Impression Foot X-Ray 05/04/24 10:30 IMPRESSION: Arthritic change with heel spur. Vascular calcifications. No focal destruction seen. Electronically Signed: Chung Dove MD at 10:42 EST , Assessment & Plan Assessment/Plan (1) Ischemic toe: PLAN: Plan 1. Peripheral vascular disease status post right anterior tibial stent with a new right ischemic great toe ? Will continue with vascular surgery consult as well as podiatry consult ? He is not having any pain so will not order any pain medications at this time ? Does not appear infected so no antibiotics at this time ? Will continue with aspirin and Plavix 2. 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 Continue with his home insulin ? Will monitor make adjustments as necessary ? Accu-Cheks ACHS ? Will consult nephrology for dialysis DVT: Heparin 75 minutes was spent on direct patient care, including documentation as well as chart review and collaboration with colleagues Charges/Coding Visit Charges Inpatient E&M: 16507 Init Hosp L3
--- NOTE | 2024-05-04 16:34 | CASEMGMT ---
Social Work- SW met with pt, pt son, Jack, pt dtr Hilaria, and pt's [id number] to discuss pt son concerns. Pt son reports that there have been billing issues from last visit; they received a bill for the entire visit last admission. Jack reports that he is working with financial services to resolve. Jack also had questions in regards to a bed hold at [facility] while hospitalized. SW encouraged Jack to call [facility], Jack called and they will hold bed three days at no charge and will have a meeting on Tuesday with family to discuss any additional hold days. Pt family reports that ED physician shared that pt will be NWB following surgery and are concerned about their ability to continue to provide transportation to dialysis and are interested in exploring other facilities that could provide transportation. Pt has dialysis through [facility] 6[facility]. SW provided a list of facilities that provide transportation or in-house dialysis. A list of SNF providers including quality and resource use data and consistent with the patient?s preferred geographic region, medical needs, and insurance network were provided from the [facility] Guide. Pt family will look over facilities. SW printed wheelchair transportation list; SW will provide when family returns to room. SW remains available to follow. TERRI Keating
--- NOTE | 2024-05-04 16:55 | CON.PCM.SX_ITS ---
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 Prior AT intervention remains patent and his overall inflow appears improved with now biphasic signals. Reasonable to proceed with amputation Tuesday as planned. If poor bleeding is noted at the time of the amputation, then would plan for repeat angiogram possible intervention. Continue Plavix and ASA. HPI Consult Data Date of Consult: 05/04/24 HPI Narrative HPI Narrative: PERLA LUBIN, is a 89 M who presented to the ER today from SNF with worsened appearance of his R great toe with concern for associated cellulitis. He was recently admitted to [facility] from 04/14-04/24 with infected R diabetic foot wound at the base of his R first metatarsal. He was treated with IV antibiotics. Podiatry performed bedside debridement. He had arterial study showing noncompressible vessels and monophasic waveforms throughout. On 04/18/24, Dr. White performed angiogram showing: PT occluded at the medial malleolus and stenosed through the distal third but could not successfully cross the lesion to intervene; peroneal at that time was noted to be widely patent; AT was patent large caliber vessel with a stenosis of greater than 75% just beyond its origin with return to normal caliber and continuous flow to the foot where it gave rise to the dorsalis pedal artery and the predominant perfusion to the pedal arch. He performed successful AT angioplasty. He presents today with persistence of the wound at the plantar base of the R 1st MT, but now also with gangrene/ischemic tissue damage to the entirety of the R 1st toe. Podiatry is planning for R 1st toe amputation. Ordered repeat arterial study today which showed: Patent AT intervention; now occluded peroneal; RAN not obtainable due to noncompressible vessels, improved biphasic waveforms through the RLE. 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 Abnormal electrocardiogram Home Medications ?Medication ?Instructions ?Recorded ?Last Taken ?Type cholecalciferol (vitamin D3) 25 5,000 unit PO DAILY supplement #30 05/02/20 11/06/21 Rx mcg (1,000 unit) tablet tabs aspirin 81 mg tablet,delayed 81 mg PO DAILY heart health 07/01/20 11/06/21 History release (Adult Aspirin Regimen) cyanocobalamin (vitamin B-12) 1,000 mcg PO .SUMOWEDFR supplement 10/07/23 Unknown History 1,000 mcg tablet (Vitamin B-12) torsemide 100 mg tablet 100 mg PO MOWEFR water pill 04/14/24 05/03/24 History acetaminophen 325 mg tablet 650 mg (2 x 325 mg) PO Q6H PRN PRN 04/24/24 Unknown Rx Pain 1-10 Or Fever >100.7 #0 tabs clopidogrel 75 mg tablet 75 mg PO DAILY 30 days #30 tabs 04/24/24 Unknown Rx insulin glargine 100 unit/mL (3 20 unit (0.2 mL) subcut DINNER 04/24/24 Unknown Rx mL) subcutaneous pen diabetes 30 days #0 mL insulin lispro 100 unit/mL 10 unit (0.1 mL) subcut TIDAC #0 mL 04/24/24 Unknown Rx subcutaneous pen (Humalog KwikPen (U-100) Insulin) miconazole nitrate 2 % topical 1 applic topical BID ring worm 14 04/24/24 Unknown Rx cream days #0 grams sennosides 8.6 mg-docusate sodium 2 tab PO BID PRN PRN Constipation 04/24/24 Unknown Rx 50 mg tablet (Stimulant Laxative #0 tabs Plus) insulin lispro 100 unit/mL See Protocol subcut ACHS dm 05/04/24 Unknown History subcutaneous pen (Humalog KwikPen (U-100) Insulin) Allergy/AdvReac Type Severity Reaction Status Date / Time pioglitazone (From Actos) Allergy fatigue Verified 05/04/24 09:46 simvastatin (From Zocor) Allergy myalgia Verified 05/04/24 09:46 sitagliptin (From Januvia) Allergy unknown Verified 05/04/24 09:46 Family History Mother Hypertension Father Diabetes COPD (chronic obstructive pulmonary disease) Surgical History History of cataract extraction History of ligation of vein History of arteriovenostomy for renal dialysis History of inguinal hernia repair History of appendectomy Social History Smoking Status: Never smoker alcohol intake: never substance use type: does not use caffeine: Yes Type: coffee Number of servings: 1 what type of physical activity do you participate in: none seatbelt use: always do you feel safe at home: Yes Physical Exam Const alert, oriented x3, no apparent distress and healthy appearing General Appearance: cooperative; Negative for combative or lethargic Orientation / Consciousness: awake Exam Limitations: no limitations HEENT Head and Scalp: normocephalic and atraumatic Eyes EOMs intact bilaterally General Eye: normal appearance of both eyes Neck full ROM and no lymphadenopathy General: trachea midline; Negative for lymphadenopathy Resp normal respiratory effort and no use of accessory muscles Effort and Inspection: Negative for labored, stridor or audible wheezes Cardio regular rate, regular rhythm and no murmurs Peripheral Pulses: brachial pulses present, radial pulses present, femoral pulses present and popliteal pulses present Extremity no clubbing, cyanosis or edema Skin Wound Narrative: Wound pictures reviewed, R medial foot ulceration at base of the 1st metatarsal with overlying eschar; R 1st toe with eschar on the plantar aspect, cyanotic distally. Neuro oriented x3, CN's II-XII intact bilaterally, no focal motor deficits and no sensory deficits noted Psych thought process normal, cooperative, affect normal, speech normal and activity/motor behavior normal Lab / Micro Data 05/04/24 10:00 05/04/24 10:00 Labs: Laboratory Results - last 24 hr 05/04/24 10:00: WBC 9.2, RBC 3.86 L, Hgb 11.3 L, Hct 36.7 L, MCV 95.1 H, MCH 29.3, MCHC 30.8 L, RDW Std Deviation 53.0 H, RDW Coeff of Frances 15.4 H, Plt Count 288, MPV 11.4, Immature Gran % (Auto) 0.800, Neut % (Auto) 63.1, Lymph % (Auto) 22.5, [place] % (Auto) 10.2 H, Eos % (Auto) 2.4, Baso % (Auto) 1.0, Absolute Neuts (auto) 5.8, Absolute Lymphs (auto) 2.08, Nucleated RBC % 0, ESR 81 H, Sodium 133 L, Potassium 3.7, Chloride 94 L, Carbon Dioxide 31.0, Anion Gap 7, BUN 31 H, C reatinine 4.58 H, Estim Creat Clear Calc 13.00, Est GFR (MDRD) Af Amer 16 L, Est GFR (MDRD) Non-Af 13 L, BUN/Creatinine Ratio 6.8 L, Glucose 297 H, Calcium 9.4, C-React Prot Ext Range 72.90 H 05/04/24 15:30: POC Glucose 342 H Rhythm Strip Rhythm Strip: A-fib Rate: 55 Ectopy: None Imaging Radiology Impression Foot X-Ray 05/04/24 10:30 IMPRESSION: Arthritic change with heel spur. Vascular calcifications. No focal destruction seen. Electronically Signed: Chung Dove MD at 10:42 EST , Charges/Coding Visit Charges Inpatient E&M: 82221 Init Hosp L1
[2024-05-04] MEDS: Insulin Glargine-YFGN 100 UNIT/ML Pen 20 UNIT SC (17:32)
[2024-05-04] MEDS: Glucerna Shake 120 ML LIQUID PO (17:33)
[2024-05-04] MEDS: Heparin Injection (Vial) 5,000 UNIT/ML VIAL 5000 UNIT SC (22:34)
[2024-05-05] VITALS (12 sets, daily range): BP systolic 120–221; BP diastolic 41–74; PULSE 41–82; RESP 16–18; TEMP 36.3–37.2; O2SAT 91–96; BMI 32.7; BMI 32.0
[2024-05-05 00:42] LABS: Bedside Glucose 171 mg/dL (74-106)
[2024-05-05 05:49] LABS: Absolute Lymphocyte Count 2.35 X10^3/uL (0.83-4.51); Absolute Neutrophil Count 6.8 X10^3/uL (2.0-7.7); Basophil# 0.08 X10^3/uL; Basophil% 0.8 % (0-1); Eosinophil# 0.33 X10^3/uL; Eosinophils% 3.1 % (0-5); Hematocrit 31.1 % (40-54); Hemoglobin 9.4 g/dL (13.0-16.5); Lymphocyte # 2.35 X10^3/ul (0.83-4.51); Lymphocyte % 22.1 % (19-41); Mean Corp Hgb Conc 30.2 g/dL (32-36); Mean Corpuscular Hgb 28.8 pg (27.0-32.0); Mean Corpuscular Volume 95.4 fL (80-94); Mean Platelet Vol. 11.2 fl (6.2-12.0); Monocyte# 0.98 X10^3/uL; Monocyte% 9.2 % (0-10); NRBC Flagged by Analyzer 0 % (0-5); Neutrophil # 6.82 X10^3/uL (2.7-7.7); Neutrophil % 64.2 % (47-70); Platelet Count 263 K/mm3 (150-450); RBC Distribution Width CV 15.1 % (11.6-14.6); RBC Distribution Width SD 52.6 fl (35.1-43.9); Red Blood Count 3.26 M/mm3 (4.6-6.2); White Blood Count 10.6 K/mm3 (4.4-11.0)
[2024-05-05 06:05] LABS: Anion Gap 11 (5-15); BUN 49 mg/dL (7-18); BUN/Creat Ratio 9.2 RATIO (10-20); Calcium,Total 8.9 mg/dL (8.5-10.1); Chloride 95 mmol/L (98-107); Creatinine, Serum 5.32 mg/dL (0.70-1.30); EST Glomerular Filtration Rate 11 mL/min (>60); Est Glom Filt Rate - Afr Amer 13 mL/min (>60); Estimated Creatinine Clearance 10.63 ml/min; Glucose 111 mg/dL (74-106); Potassium 3.9 mmol/L (3.5-5.1); Sodium Level 135 mmol/L (136-145)
[2024-05-05 08:01] LABS: Bedside Glucose 136 mg/dL (74-106)
[2024-05-05] MEDS: 0.9% Normal Saline 1,000 ML IV.SOLN. 200 ML IV (08:39)
[2024-05-05] MEDS: PureFlow B 3K Dialysis Soln 1 BAG 6 BAG PF (08:40)
--- NOTE | 2024-05-05 09:49 | CASEMGMT ---
Addendum entered by Monserrat Thibodeaux 05/05/24 14:17: Social Work SW met with pt's son in law Jey and discussed transportation options for dialysis. Transportation options discussed and written information provided. Family to meet with CC on Tuesday to determine plan going forward. SW to follow up. TERRI Zapata Original Note: Social Work Transportation information left in pt room for family in the event family needs to secure transportation to dialysis from SNF. TERRI Zapata
[2024-05-05] MEDS: 0.9% Saline Lock 10 ML Syringe IV ×2 (11:23→12:39)
--- NOTE | 2024-05-05 11:44 | PCM.PN.HOSP ---
Reason for Visit Reason for Visit: Diagnoses Type 2 diabetes mellitus with diabetic polyneuropathy (05/04/24) Other disorder of circulatory system (05/04/24) Non-pressure chronic ulcer of other part of right foot with necrosis of bone (05/04/24) Other acute osteomyelitis, right ankle and foot (05/04/24) Subjective Subjective Saw patient at bedside this morning. Sitting up comfortably in bed, conversing normally, no acute distress. Denies any right foot pain or discomfort. Right great toe does have significant eschar noted. Patient also has streaking erythema noted into the foot and into the low ankle area. Patient denies any fevers or chills. No other acute concerns morning. Objective Data Objective Data Vital Signs: Vital Signs Temp Pulse Resp BP Pulse Ox O2 Del Method 97.4 F L 52 L 18 130/62 H 94 Room Air 05/05/24 08:06 05/05/24 11:30 05/05/24 11:30 05/05/24 11:30 05/05/24 11:30 05/05/24 11:30 Oxygen Delivery Method Room Air Weight: 94.619 kg Body Mass Index (BMI) 32.7 Intake & Output: Intake and Output for Last 24 Hours 05/03/24 05/04/24 05/05/24 23:59 23:59 23:59 Intake Total 300 / 300 550 / 550 Balance 300 / 300 550 / 550 Lab / Micro Data 05/05/24 04:50 05/05/24 04:50 Labs: Laboratory Results - last 24 hr 05/04/24 15:30: POC Glucose 342 H 05/04/24 22:36: POC Glucose 171 H 05/05/24 04:50: WBC 10.6, RBC 3.26 L, Hgb 9.4 L, Hct 31.1 L, MCV 95.4 H, MCH 28.8, MCHC 30.2 L, RDW Std Deviation 52.6 H, RDW Coeff of Frances 15.1 H, Plt Count 263, MPV 11.2, Immature Gran % (Auto) 0.600, Neut % (Auto) 64.2, Lymph % (Auto) 22.1, [place] % (Auto) 9.2, Eos % (Auto) 3.1, Baso % (Auto) 0.8, Absolute Neuts (auto) 6.8, Absolute Lymphs (auto) 2.35, Nucleated RBC % 0, Sodium 135 L, Potassium 3.9, Chloride 95 L, Carbon Dioxide 30.0, Anion Gap 11, BUN 49 H, Creatinine 5.32 H, Estim Creat Clear Calc 10.63, Est GFR (MDRD) Af Amer 13 L, Est GFR (MDRD) Non-Af 11 L, BUN/Creatinine Ratio 9.2 L, Glucose 111 H, Calcium 8.9 05/05/24 07:41: POC Glucose 136 H Rhythm Strip Rhythm Strip: A-fib Rate: 55 Ectopy: None Physical Exam Const alert, oriented x3 and no apparent distress Constitutional Narrative: Elderly male, class I obesity, mildly fatigued appearing, otherwise sitting up comfortably in bed, conversing normally, no acute distress. General Appearance: cooperative and comfortable HEENT normocephalic, head/scalp atraumatic, hearing grossly normal bilaterally, nasal mucous membranes and turbinates normal and moist oral mucous membranes Eyes PERRL, EOMs intact bilaterally and conjunctivae normal Neck full ROM Chest inspection of chest normal Resp normal respiratory effort, normal air movement, no use of accessory muscles and clear to auscultation bilaterally Cardio regular rate, regular rhythm, no murmurs and peripheral pulses 2+ throughout GI normal to inspection, nondistended, normoactive bowel sounds, soft to palpation, non-tender and non-distended Back/Spine normal ROM Extremity Extremity Narrative: Eschar noted on right great toe down to just below base of toe. Streaking erythema noted on foot and up to low ankle with warmth and mild tenderness on palpation noted. Neuro moves all extremities Psych mental status grossly normal Assessment & Plan Assessment/Plan (1) Ischemic ulcer of toe of right foot: PLAN: Plan Patient is an 89-year-old male who presented [facility] ED on 05/04/2024 with worsening right foot wound. 1. Peripheral vascular disease s/p right anterior tibial stent with new right ischemic great toe with suspected osteomyelitis ? Podiatry and vascular surgery following. Infectious disease consulted. PT/OT/case management consulted. Patient with nonhealing right great toe wound with worsening chronic ischemia and concern for osteomyelitis. Planning for right foot partial first ray amputation on Tuesday with podiatry. Cleared for this procedure by vascular surgery. ID followed during previous admission and patient was on vancomycin and Unasyn until discharge on p.o. antibiotics. Will treat with vancomycin and Unasyn for now. N.p.o. at midnight on 05/06 in preparation for procedure. Continue home aspirin and Plavix. 2. ESRD on HD ? Nephrology consulted. Continue HD Tuesday schedule. Monitor daily BMP. 3. Type 2 diabetes mellitus ? Will treat with reduced doses from home of Lantus 15 units at dinner and 5 units with meals plus sliding scale insulin, adjust as needed. 4. Sinus bradycardia ? Known history of sinus bradycardia at baseline. 5. Class I obesity ? BMI 32 on admit. Complicates hospital course, care and prognosis. DVT prophylaxis: Heparin subcu CODE STATUS: Full code, verified Expected disposition: TBD Total clinical time spent by myself addressing the patient's medical issues, reviewing all the data, and collaborating with patient's care team: 35 minutes. Charges/Coding Visit Charges Inpatient E&M: 34369 Subs Hosp L2
[2024-05-05] MEDS: Heparin Injection (Vial) 5,000 UNIT/ML VIAL 5000 UNIT SC ×2 (12:24→21:25)
[2024-05-05] MEDS: Aspirin E.C. 81 MG Tablet PO (12:24)
[2024-05-05] MEDS: Clopidogrel Bisulfate 75 MG Tablet PO (12:24)
[2024-05-05] MEDS: Insulin Lispro 100 UNIT/ML INSULN.PEN SC ×5 (12:25→21:25)
[2024-05-05] MEDS: Glucerna Shake 120 ML LIQUID PO ×2 (12:28→16:34)
[2024-05-05] MEDS: Ampicillin/Sulbactam 3 GM in 0.9% Normal Saline (100mL MB+) 100 ML IV (12:38)
[2024-05-05 12:57] LABS: Bedside Glucose 202 mg/dL (74-106)
[2024-05-05] MEDS: Vancomycin HCl 2,000 MG in 0.9% Normal Saline (500mL Bag) 500 ML 250 MG IV (13:53)
--- NOTE | 2024-05-05 14:35 | PCM.RX.CS ---
Consult Antibiotic Management Pharmacy has been consulted to manage selected antibiotic: Vancomycin Type of Intervention Type of Consult: New start Suspected Infection Suspected Infection: Osteomyelitis Labs Labs: Sodium 135 mmol/L (136-145) L 05/05/24 04:50 Potassium 3.9 mmol/L (3.5-5.1) 05/05/24 04:50 Chloride 95 mmol/L (98-107) L 05/05/24 04:50 Carbon Dioxide 30.0 mmol/L (21.0-32.0) 05/05/24 04:50 Anion Gap 11 (5-15) 05/05/24 04:50 BUN 49 mg/dL (7-18) H 05/05/24 04:50 Creatinine 5.32 mg/dL (0.70-1.30) H 05/05/24 04:50 Est GFR (MDRD) Af Amer 13 mL/min (>60) L 05/05/24 04:50 Est GFR (MDRD) Non-Af 11 mL/min (>60) L 05/05/24 04:50 BUN/Creatinine Ratio 9.2 RATIO (10-20) L 05/05/24 04:50 Glucose 111 mg/dL (74-106) H 05/05/24 04:50 Dosing Weight Weight used for dosin.6 kg Estimated Creatinine Clearance Estimated Creatinine Clearance: on HD Goal Trough Goal Trough: 15-20 mcg/mL Pharmacy Plan for Drug Dosing Pharmacy Plan for Drug Dosing: Give vanc 2000mg IV x1 after HD today. Then after the next HD on Tuesday a 2nd dose of 750mg x1 will be entered to be given per [facility] dosing in HD patients. The patient gets dialysis on a scheduled. Subsequent dosing after that will be guided by pre-HD random vanc levels. Pharmacy Service will continue to monitor and adjust dosing as required. Follow-Up Labs Follow-Up Labs: Trough: Vancomycin (random pre-HD) Date/Time Labs Ordered Labs to be done on [date and time ordered]: 05/10/24 0600
[2024-05-05 15:42] LABS: Bedside Glucose 210 mg/dL (74-106)
--- NOTE | 2024-05-05 16:08 | PCM.CONS.R ---
Assessment & Plan Assessment/Plan (1) ESRD (end stage renal disease): PLAN: End-stage renal disease on hemodialysis Tuesday -Had hemodialysis today -Electrolytes and volume are stable, will be okay with giving back some volume if becomes hypotensive -Hemoglobin is close to goal -Maintain Tuesday dialysis schedule Discussed with RN Please call [phone] with any concerns HPI Consult Data Date of Consult: 05/05/24 HPI Narrative Reason for Consultation: End-stage renal disease HPI Narrative: PERLA LUBIN, is a 89 M well-known to our service. Underlying history of end-stage renal disease on hemodialysis Tuesday. Recently discharged from the hospital On April 24, 2024. He presented back to the hospital on May 04, 2024 due to worsening right foot wound. Patient been seen by both podiatry and vascular surgery. Nephrology is consulted for evaluation and management of end-stage renal disease. 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 Pre-op testing Loose, teeth Wears glasses Cancer Dialysis patient Kidney disease Non-smoker Edema Syncope Chronic diastolic (congestive) heart failure (04/18/20) Paroxysmal atrial fibrillation Sinus bradycardia Type 2 diabetes mellitus Hyperkalemia Swelling of both lower extremities HLD (hyperlipidemia) Left bundle-branch block 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 Abnormal electrocardiogram Home Medications ?Medication ?Instructions ?Recorded ?Last Taken ?Type cholecalciferol (vitamin D3) 25 5,000 unit PO DAILY supplement #30 05/02/20 11/06/21 Rx mcg (1,000 unit) tablet tabs aspirin 81 mg tablet,delayed 81 mg PO DAILY heart health 07/01/20 11/06/21 History release (Adult Aspirin Regimen) cyanocobalamin (vitamin B-12) 1,000 mcg PO .SUMOWEDFR supplement 10/07/23 Unknown History 1,000 mcg tablet (Vitamin B-12) torsemide 100 mg tablet 100 mg PO MOWEFR water pill 04/14/24 05/03/24 History acetaminophen 325 mg tablet 650 mg (2 x 325 mg) PO Q6H PRN PRN 04/24/24 Unknown Rx Pain 1-10 Or Fever >100.7 #0 tabs clopidogrel 75 mg tablet 75 mg PO DAILY 30 days #30 tabs 04/24/24 Unknown Rx insulin glargine 100 unit/mL (3 20 unit (0.2 mL) subcut DINNER 04/24/24 Unknown Rx mL) subcutaneous pen diabetes 30 days #0 mL insulin lispro 100 unit/mL 10 unit (0.1 mL) subcut TIDAC #0 mL 04/24/24 Unknown Rx subcutaneous pen (Humalog KwikPen (U-100) Insulin) miconazole nitrate 2 % topical 1 applic topical BID ring worm 14 04/24/24 Unknown Rx cream days #0 grams sennosides 8.6 mg-docusate sodium 2 tab PO BID PRN PRN Constipation 04/24/24 Unknown Rx 50 mg tablet (Stimulant Laxative #0 tabs Plus) insulin lispro 100 unit/mL See Protocol subcut ACHS dm 05/04/24 Unknown History subcutaneous pen (Humalog KwikPen (U-100) Insulin) Allergy/AdvReac Type Severity Reaction Status Date / Time pioglitazone (From Actos) Allergy fatigue Verified 05/04/24 09:46 simvastatin (From Zocor) Allergy myalgia Verified 05/04/24 09:46 sitagliptin (From Januvia) Allergy unknown Verified 05/04/24 09:46 Family History Mother Hypertension Father Diabetes COPD (chronic obstructive pulmonary disease) Surgical History History of cataract extraction History of ligation of vein History of arteriovenostomy for renal dialysis History of inguinal hernia repair History of appendectomy Social History Smoking Status: Never smoker alcohol intake: never substance use type: does not use caffeine: Yes Type: coffee Number of servings: 1 what type of physical activity do you participate in: none seatbelt use: always do you feel safe at home: Yes ROS ROS Narrative 10 review of systems negative other than stated above Physical Exam Narrative Currently resting comfortably Normocephalic atraumatic Oral mucosas dry Neck is supple S1-S2 regular Breath sounds equal anteriorly Left forearm AV fistula Abdomen is nontender No significant peripheral edema Lab / Micro Data 05/05/24 04:50 05/05/24 04:50 Labs: Laboratory Results - last 24 hr 05/04/24 22:36: POC Glucose 171 H 05/05/24 04:50: WBC 10.6, RBC 3.26 L, Hgb 9.4 L, Hct 31.1 L, MCV 95.4 H, MCH 28.8, MCHC 30.2 L, RDW Std Deviation 52.6 H, RDW Coeff of Frances 15.1 H, Plt Count 263, MPV 11.2, Immature Gran % (Auto) 0.600, Neut % (Auto) 64.2, Lymph % (Auto) 22.1, [place] % (Auto) 9.2, Eos % (Auto) 3.1, Baso % (Auto) 0.8, Absolute Neuts (auto) 6.8, Absolute Lymphs (auto) 2.35, Nucleated RBC % 0, Sodium 135 L, Potassium 3.9, Chloride 95 L, Carbon Dioxide 30.0, Anion Gap 11, BUN 49 H, Creatinine 5.32 H, Estim Creat Clear Calc 10.63, Est GFR (MDRD) Af Amer 13 L, Est GFR (MDRD) Non-Af 11 L, BUN/Creatinine Ratio 9.2 L, Glucose 111 H, Calcium 8.9 05/05/24 07:41: POC Glucose 136 H 05/05/24 12:21: POC Glucose 202 H 05/05/24 15:24: POC Glucose 210 H Rhythm Strip Rhythm Strip: A-fib Rate: 55 Ectopy: None
[2024-05-05] MEDS: 0.9% Normal Saline (500mL Bag) 500 ML 999 ML IV (16:34)
[2024-05-05] MEDS: Insulin Glargine-YFGN 100 UNIT/ML Pen 15 UNIT SC (16:36)
[2024-05-05 21:46] LABS: Bedside Glucose 155 mg/dL (74-106)
[2024-05-06 02:50] VITALS: BP 153/96; PULSE 57; RESP 16; TEMP 37; O2SAT 97
[2024-05-06 06:22] LABS: Hematocrit 32.3 % (40-54); Hemoglobin 9.7 g/dL (13.0-16.5); Mean Corpuscular Hgb 29.2 pg (27.0-32.0); Mean Corpuscular Volume 97.3 fL (80-94); Mean Platelet Vol. 11.1 fl (6.2-12.0); Platelet Count 238 K/mm3 (150-450); RBC Distribution Width CV 15.1 % (11.6-14.6); RBC Distribution Width SD 54.1 fl (35.1-43.9); Red Blood Count 3.32 M/mm3 (4.6-6.2); White Blood Count 8.5 K/mm3 (4.4-11.0)
[2024-05-06 06:52] LABS: Anion Gap 7 (5-15); BUN 48 mg/dL (7-18); BUN/Creat Ratio 11.3 RATIO (10-20); Calcium,Total 8.9 mg/dL (8.5-10.1); Chloride 99 mmol/L (98-107); Creatinine, Serum 4.26 mg/dL (0.70-1.30); EST Glomerular Filtration Rate 14 mL/min (>60); Est Glom Filt Rate - Afr Amer 17 mL/min (>60); Estimated Creatinine Clearance 13.25 ml/min; Glucose 181 mg/dL (74-106); Potassium 4.3 mmol/L (3.5-5.1); Sodium Level 133 mmol/L (136-145)
[2024-05-06] MEDS: Aspirin E.C. 81 MG Tablet PO (08:20)
[2024-05-06] MEDS: Clopidogrel Bisulfate 75 MG Tablet PO (08:20)
[2024-05-06] MEDS: Insulin Lispro 100 UNIT/ML INSULN.PEN SC ×6 (08:23→21:12)
--- NOTE | 2024-05-06 09:47 | PN_ITS ---
Subjective Subjective No changes overnight. Objective Data Objective Data Vital Signs: Vital Signs Temp Pulse Resp BP Pulse Ox O2 Del Method 98.6 F 57 L 16 153/96 H 97 Room Air 05/06/24 02:50 05/06/24 02:50 05/06/24 02:50 05/06/24 02:50 05/06/24 02:50 05/06/24 08:00 Oxygen Delivery Method Room Air Weight: 92.533 kg Body Mass Index (BMI) 32.0 Intake & Output: Intake and Output for Last 24 Hours 05/04/24 05/05/24 05/06/24 23:59 23:59 23:59 Intake Total 300 / 300 2202 / 2452 250 / 250 Output Total 2730 / 5460 2730 / 2730 Balance 300 / 300 -528 / -3008 -2480 / -2480 Lab / Micro Data 05/06/24 05:50 05/06/24 05:50 Labs: Laboratory Results - last 24 hr 05/05/24 12:21: POC Glucose 202 H 05/05/24 15:24: POC Glucose 210 H 05/05/24 21:24: POC Glucose 155 H 05/06/24 05:50: WBC 8.5, RBC 3.32 L, Hgb 9.7 L, Hct 32.3 L, MCV 97.3 H, MCH 29.2, MCHC 30.0 L, RDW Std Deviation 54.1 H, RDW Coeff of Frances 15.1 H, Plt Count 238, MPV 11.1, Sodium 133 L, Potassium 4.3, Chloride 99, Carbon Dioxide 27.0, Anion Gap 7, BUN 48 H, Creatinine 4.26 H, Estim Creat Clear Calc 13.25, Est GFR (MDRD) Af Amer 17 L, Est GFR (MDRD) Non-Af 14 L, BUN/Creatinine Ratio 11.3, G lucose 181 H, Calcium 8.9 Rhythm Strip Rhythm Strip: A-fib Rate: 55 Ectopy: None Physical Exam Narrative Vascular: Dorsalis pedis posterior tibial pulses diminished over the right foot. Atrophic skin changes noted foot is warm to palpation. Some edema and warmth noted. Absent digital hair growth noted. Necrosis to right great toe and plantar first MPJ. Neurologic: Absent light touch protective sensation to right foot and left foot. Dermatologic: Dry necrosis to the distal aspect of the hallux as well as the plantar aspect of the first MPJ with periwound erythema edema and warmth extending into the midfoot. Musculoskeletal: No gross deformity contributing to wound formation. No sign DVT. Muscular strength diminished 4 out of 5 to bilateral lower extremity compartments Assessment & Plan Assessment/Plan (1) Other acute osteomyelitis, right ankle and foot: PLAN: Exam performed. Lab work evaluated, vital signs stable Patient receiving IV antibiotics. Vascular surgery evaluated patient. Patient had initially two-vessel runoff but vascular surgery notes that the peroneal artery is now reoccluded. I do recommend continuing with amputation if there are any issues with bleeding intraoperatively or with postoperative healing distal repeat intervention. Plan for partial first ray amputation tomorrow 05/07/2024 at 11 AM (2) Non-pressure chronic ulcer of other part of right foot with necrosis of bone: (3) Type 2 diabetes mellitus with diabetic polyneuropathy:
--- NOTE | 2024-05-06 11:06 | PCM.PN.HOSP ---
Reason for Visit Reason for Visit: Diagnoses Type 2 diabetes mellitus with diabetic polyneuropathy (05/04/24) Other disorder of circulatory system (05/04/24) Non-pressure chronic ulcer of other part of right foot with necrosis of bone (05/04/24) Non-pressure chronic ulcer of other part of right foot with unspecified severity (05/04/24) Other acute osteomyelitis, right ankle and foot (05/04/24) End stage renal disease (05/04/24) Subjective Subjective Saw patient at bedside this morning. Patient was resting comfortably in bed, appeared similar to yesterday. Denied any fevers or chills today. No other new concerns today. Objective Data Objective Data Vital Signs: Vital Signs Temp Pulse Resp BP Pulse Ox O2 Del Method 98.6 F 57 L 16 153/96 H 97 Room Air 05/06/24 02:50 05/06/24 02:50 05/06/24 02:50 05/06/24 02:50 05/06/24 02:50 05/06/24 08:00 Oxygen Delivery Method Room Air Weight: 92.533 kg Body Mass Index (BMI) 32.0 Intake & Output: Intake and Output for Last 24 Hours 05/04/24 05/05/24 05/06/24 23:59 23:59 23:59 Intake Total 300 / 300 2202 / 2452 250 / 250 Output Total 2730 / 5460 2730 / 2730 Balance 300 / 300 -528 / -3008 -2480 / -2480 Lab / Micro Data 05/06/24 05:50 05/06/24 05:50 Labs: Laboratory Results - last 24 hr 05/05/24 12:21: POC Glucose 202 H 05/05/24 15:24: POC Glucose 210 H 05/05/24 21:24: POC Glucose 155 H 05/06/24 05:50: WBC 8.5, RBC 3.32 L, Hgb 9.7 L, Hct 32.3 L, MCV 97.3 H, MCH 29.2, MCHC 30.0 L, RDW Std Deviation 54.1 H, RDW Coeff of Frances 15.1 H, Plt Count 238, MPV 11.1, Sodium 133 L, Potassium 4.3, Chloride 99, Carbon Dioxide 27.0, Anion Gap 7, BUN 48 H, Creatinine 4.26 H, Estim Creat Clear Calc 13.25, Est GFR (MDRD) Af Amer 17 L, Est GFR (MDRD) Non-Af 14 L, BUN/Creatinine Ratio 11.3, Glucose 181 H, Calcium 8.9 Rhythm Strip Rhythm Strip: A-fib Rate: 55 Ectopy: None Physical Exam Const alert, oriented x3 and no apparent distress Constitutional Narrative: Elderly male, class I obesity, mildly fatigued appearing, otherwise sitting up comfortably in bed, conversing normally, no acute distress. Stable. General Appearance: cooperative and comfortable HEENT normocephalic, head/scalp atraumatic, hearing grossly normal bilaterally, nasal mucous membranes and turbinates normal and moist oral mucous membranes Eyes PERRL, EOMs intact bilaterally and conjunctivae normal Neck full ROM Chest inspection of chest normal Resp normal respiratory effort, normal air movement, no use of accessory muscles and clear to auscultation bilaterally Cardio regular rate, regular rhythm, no murmurs and peripheral pulses 2+ throughout GI normal to inspection, nondistended, normoactive bowel sounds, soft to palpation, non-tender and non-distended Back/Spine normal ROM Extremity Extremity Narrative: Eschar noted on right great toe down to just below base of toe. Streaking erythema noted on foot and up to low ankle with warmth and mild tenderness on palpation noted. Stable. Neuro moves all extremities Psych mental status grossly normal Assessment & Plan Assessment/Plan (1) Ischemic ulcer of toe of right foot: PLAN: Plan Patient is an 89-year-old male who presented [facility] ED on 05/04/2024 with worsening right foot wound. 1. Peripheral vascular disease s/p right anterior tibial stent with new right ischemic great toe and right foot cellulitis ? Podiatry and vascular surgery following. Infectious disease consulted. PT/OT/case management following. Patient with nonhealing right great toe wound with worsening chronic ischemia and concern for right foot cellulitis. Planning for right foot partial first ray amputation on Tuesday with podiatry. Cleared for this procedure by vascular surgery. ID followed during previous admission and patient was on vancomycin and Unasyn until discharge on p.o. antibiotics. Notably had MRI done during previous admission that ruled out osteomyelitis. Will treat with vancomycin and Unasyn for now. N.p.o. at midnight on 05/06 in preparation for procedure. Continue home aspirin and Plavix. 2. ESRD on HD ? Nephrology following. Continue HD Tuesday schedule. Monitor daily BMP. 3. Type 2 diabetes mellitus ? Treating with reduced doses from home of Lantus 15 units at dinner and 5 units with meals plus sliding scale insulin, adjust as needed. 4. Sinus bradycardia ? Known history of sinus bradycardia at baseline. 5. Class I obesity ? BMI 32 on admit. Complicates hospital course, care and prognosis. DVT prophylaxis: Heparin subcu CODE STATUS: Full code, verified Expected disposition: TBD Total clinical time spent by myself addressing the patient's medical issues, reviewing all the data, and collaborating with patient's care team: 35 minutes. Charges/Coding Visit Charges Inpatient E&M: 35008 Subs Hosp L2
[2024-05-06 12:11] LABS: Bedside Glucose 228 mg/dL (74-106)
[2024-05-06 14:00] VITALS: BP 143/59; PULSE 57; RESP 16; TEMP 36.8; O2SAT 96
[2024-05-06] MEDS: Ampicillin/Sulbactam 3 GM in 0.9% Normal Saline (100mL MB+) 100 ML IV (14:36)
[2024-05-06 15:00] VITALS: BP 143/59; PULSE 57; RESP 16; TEMP 36.8; O2SAT 98
[2024-05-06 16:58] LABS: Bedside Glucose 142 mg/dL (74-106)
[2024-05-06] MEDS: Insulin Glargine-YFGN 100 UNIT/ML Pen 15 UNIT SC (17:06)
[2024-05-06 20:15] VITALS: BP 150/68; PULSE 57; RESP 16; TEMP 37.2; O2SAT 96
[2024-05-06] MEDS: Menthol/Lanolin/Calamine/Znox 113 GM Tube 1 APPLIC TOPICAL (21:15)
[2024-05-06 21:32] LABS: Bedside Glucose 215 mg/dL (74-106)
[2024-05-07] VITALS (12 sets, daily range): BP systolic 117–161; BP diastolic 51–64; PULSE 48–57; RESP 16–18; TEMP 36.4–36.8; O2SAT 93–100; BMI 32.0; BMI 31.9
[2024-05-07] MEDS: Menthol/Lanolin/Calamine/Znox 113 GM Tube 1 APPLIC TOPICAL ×3 (05:57→22:08)
[2024-05-07 06:49] LABS: Hematocrit 29.8 % (40-54); Hemoglobin 9.1 g/dL (13.0-16.5); Mean Corp Hgb Conc 30.5 g/dL (32-36); Mean Corpuscular Hgb 29.6 pg (27.0-32.0); Mean Corpuscular Volume 97.1 fL (80-94); Platelet Count 223 K/mm3 (150-450); RBC Distribution Width SD 53.1 fl (35.1-43.9); Red Blood Count 3.07 M/mm3 (4.6-6.2); White Blood Count 8.1 K/mm3 (4.4-11.0)
[2024-05-07 07:18] LABS: Anion Gap 6 (5-15); BUN 67 mg/dL (7-18); BUN/Creat Ratio 12.3 RATIO (10-20); Calcium,Total 8.7 mg/dL (8.5-10.1); Chloride 100 mmol/L (98-107); Creatinine, Serum 5.45 mg/dL (0.70-1.30); EST Glomerular Filtration Rate 11 mL/min (>60); Est Glom Filt Rate - Afr Amer 13 mL/min (>60); Estimated Creatinine Clearance 10.36 ml/min; Glucose 131 mg/dL (74-106); Potassium 4.6 mmol/L (3.5-5.1); Sodium Level 134 mmol/L (136-145)
--- NOTE | 2024-05-07 08:23 | CASEMGMT ---
Social Work- Pt has directives naming ivonne Manriquer, as primary agent and Jack, son, as alternate agent on chart. TERRI Keating
--- NOTE | 2024-05-07 09:17 | NURSING ---
This RN called daughter Hilaria Hunt and informed her that peanut picker time for her fathers surgery today is 0945 this morning.
--- NOTE | 2024-05-07 09:21 | CASEMGMT ---
Addendum entered by Alanna Gaston 05/09/24 08:27: Msg sent via [facility] to check on status of referral. Alanna Gaston DC Planning Asst. Addendum entered by Alanna Gaston 05/08/24 16:02: Updates sent to [facility]. Awaiting response for acceptance. Alanna Gaston DC Planning Asst. Addendum entered by Alanna Gaston 05/07/24 09:41: [facility] has declined d/t no bed availability. Alanna Gaston DC Planning Asst. Original Note: Discharge Planning Referral sent via [facility] to [facility] and [facility]. Alanna Gaston DC Planning Asst.
--- NOTE | 2024-05-07 09:47 | WOUNDNOTE ---
Pt going down for surgery today. will continue to follow post op.
--- NOTE | 2024-05-07 10:25 | PN.HOSP_ITS ---
Reason for Visit Reason for Visit: Diagnoses Type 2 diabetes mellitus with diabetic polyneuropathy (05/04/24) Other disorder of circulatory system (05/04/24) Non-pressure chronic ulcer of other part of right foot with necrosis of bone (05/04/24) Non-pressure chronic ulcer of other part of right foot with unspecified severity (05/04/24) Other acute osteomyelitis, right ankle and foot (05/04/24) End stage renal disease (05/04/24) Subjective Subjective Saw patient at bedside this morning. Was sleeping when I arrived to the room. Denied any acute concerns this morning. Objective Data Objective Data Vital Signs: Vital Signs Temp Pulse Resp BP Pulse Ox O2 Del Method 98.0 F 57 L 16 145/58 H 96 Room Air 05/07/24 09:09 05/07/24 09:09 05/07/24 09:09 05/07/24 09:09 05/07/24 09:09 05/07/24 09:09 Oxygen Delivery Method Room Air Weight: 92.533 kg Body Mass Index (BMI) 31.9 Intake & Output: Intake and Output for Last 24 Hours 05/05/24 05/06/24 05/07/24 23:59 23:59 23:59 Intake Total 2202 / 2452 1262 / 1262 Output Total 2730 / 5460 5460 / 5460 0 / 0 Balance -528 / -3008 -4198 / -4198 0 / 0 Lab / Micro Data 05/07/24 06:14 05/07/24 06:14 Labs: Laboratory Results - last 24 hr 05/06/24 11:49: POC Glucose 228 H 05/06/24 16:39: POC Glucose 142 H 05/06/24 21:11: POC Glucose 215 H 05/07/24 06:14: WBC 8.1, RBC 3.07 L, Hgb 9.1 L, Hct 29.8 L, MCV 97.1 H, MCH 29.6, MCHC 30.5 L, RDW Std Deviation 53.1 H, RDW Coeff of Frances 15.0 H, Plt Count 223, MPV 11.0, Sodium 134 L, Potassium 4.6, Chloride 100, Carbon Dioxide 28.0, Anion Gap 6, BUN 67 H, Creatinine 5.45 H, Estim Creat Clear Calc 10.36, Est GFR (MDRD) Af Amer 13 L, Est GFR (MDRD) Non-Af 11 L, BUN/Creatinine Ratio 12.3, G lucose 131 H, Calcium 8.7 Rhythm Strip Rhythm Strip: A-fib Rate: 55 Ectopy: None Physical Exam Const alert, oriented x3 and no apparent distress Constitutional Narrative: Elderly male, class I obesity, mildly fatigued appearing, otherwise sitting up comfortably in bed, conversing normally, no acute distress. Stable. General Appearance: cooperative and comfortable HEENT normocephalic, head/scalp atraumatic, hearing grossly normal bilaterally, nasal mucous membranes and turbinates normal and moist oral mucous membranes Eyes PERRL, EOMs intact bilaterally and conjunctivae normal Neck full ROM Chest inspection of chest normal Resp normal respiratory effort, normal air movement, no use of accessory muscles and clear to auscultation bilaterally Cardio regular rate, regular rhythm, no murmurs and peripheral pulses 2+ throughout GI normal to inspection, nondistended, normoactive bowel sounds, soft to palpation, non-tender and non-distended Back/Spine normal ROM Extremity Extremity Narrative: Eschar noted on right great toe down to just below base of toe. Streaking erythema noted on foot and up to low ankle with warmth and mild tenderness on palpation noted. Stable. Neuro moves all extremities Psych mental status grossly normal Assessment & Plan Assessment/Plan (1) Ischemic ulcer of toe of right foot: PLAN: Plan Patient is an 89-year-old male who presented [facility] ED on 05/04/2024 with worsening right foot wound. 1. Peripheral vascular disease s/p right anterior tibial stent with new right ischemic great toe and right foot cellulitis ? Podiatry and vascular surgery following. Infectious disease consulted. PT/OT/case management following. Patient with nonhealing right great toe wound with worsening chronic ischemia and concern for right foot cellulitis. Planning for right foot partial first ray amputation today with podiatry. Cleared for this procedure by vascular surgery. ID followed during previous admission and patient was on vancomycin and Unasyn until discharge on p.o. antibiotics. Notably had MRI done during previous admission that ruled out osteomyelitis. Will treat with vancomycin and Unasyn for now. Continue home aspirin and Plavix. 2. ESRD on HD ? Nephrology following. Continue HD Tuesday schedule. Monitor daily BMP. 3. Type 2 diabetes mellitus ? Treating with reduced doses from home of Lantus 15 units at dinner and 5 units with meals plus sliding scale insulin, adjust as needed. 4. Sinus bradycardia ? Known history of sinus bradycardia at baseline. 5. Class I obesity ? BMI 32 on admit. Complicates hospital course, care and prognosis. 6. Chronic normocytic anemia ? Hemoglobin has been stable at baseline 9-10 since admission. Follow-up CBC tomorrow postoperatively. DVT prophylaxis: Heparin subcu CODE STATUS: Full code, verified Expected disposition: TBD Total clinical time spent by myself addressing the patient's medical issues, reviewing all the data, and collaborating with patient's care team: 35 minutes. Charges/Coding Visit Charges Inpatient E&M: 93553 Subs Hosp L2
[2024-05-07 10:58] LABS: Bedside Glucose 120 mg/dL (74-106)
--- NOTE | 2024-05-07 11:00 | AMP_PTH ---
PATIENT: PERLA LUBIN LOC: MS3 U#:[id number] AGE/SX: 89/M ROOM: [facility] RE05/04/[address]: Dr. Deni Shields DO : 1935 BED: 1 DIS: 05/10/2024 SPEC #: [id number] RECD: 05/07/24 15:09 STATUS: VANE RESepideh #: [id number] ALEXY: 05/07/24 11:[address]: Des Ruelas DEPT: SURGICAL PATHOLOGY RECD BY: Ana Laura Neal ENTERED: 05/08/24 07:10 SP TYPE: Amputation OTHR DR: DO Dr. Jean Romero MD Dr. Eric Turney, MD Dr. Nicholas F Kotsonis, MD Dr. Natthavat Tanphaichitr, MD Dr. Robert Leininger, MD Tissues: Toe, NOS Procedures: Decalcification bone/plaque Surgery Specimen Level IV HEADER OPERATION: Amputation toe/foot, partial 1st ray PRE-OP DIAGNOSIS: Acute osteomyelitis, chronic foot ulcer TISSUE SUBMITTED: Right hallux and 1st metatarsal MICROSCOPIC DIAGNOSIS 1st metatarsal, right hallux, excision: Soft tissue with ulceration and associated acute inflammation. Bone with acute osteomyelitis. . 05/11/2024 MICROSCOPIC DESCRIPTION Slides are reviewed. GROSS DESCRIPTION Received in fixative is one container labeled with the patient's name and designated Right hallux and right metatarsal. The specimen consists of a piece of bone with attached soft tissue measuring 4.5 x 3.0 x 2.5cm. Tube Pusher sections are submitted in three cassettes as follows: 1- attached pieces of soft tissue, 2&3- bone after decalcification . 05/08/2024 TC:2 CPT:61511,76182
--- NOTE | 2024-05-07 11:17 | NURSING ---
Left the floor via bed to go to surgery. Daughter walked down with her father.
--- NOTE | 2024-05-07 12:06 | PCM.PRE.AN2 ---
ASA Classification* ASA Classification ASA Classification: 3 Assessment & Plan Anesthesia* Anesthesia Assessment Anesthesia Assessment: Discussed sedation and/or anesthesia options, risks, benefits, and alternatives with patient/parents/legal guardian/POA. Questions invited. The patient/parents/legal guardian/POA seems to understand and agrees to proceed with anesthesia plan. Reviewed the physical assessment, medical history, allergy history and patient home medications list prior to surgery/procedure/anesthetic and documented any changes. Performed airway and anesthesia risk assessments. Anesthesia Type Anesthesia Type: MAC Anesthesia Focused Assessment* Temperature: 98.0 F Pulse Rate: 57 Blood Pressure: 145/58 Respiratory Rate: 16 Pulse Ox: 96 Airway Assessment Mouth opens: >3 cm Mallampati Score: II Focused Labs Anesthesia Preop lab: CBC WBC 8.1 K/mm3 (4.4-11.0) 05/07/24 06:14 RBC 3.07 M/mm3 (4.6-6.2) L 05/07/24 06:14 Hgb 9.1 g/dL (13.0-16.5) L 05/07/24 06:14 Hct 29.8 % (40-54) L 05/07/24 06:14 Plt Count 223 K/mm3 (150-450) 05/07/24 06:14 CHEMISTRY Potassium 4.6 mmol/L (3.5-5.1) 05/07/24 06:14 Sodium 134 mmol/L (136-145) L 05/07/24 06:14 BUN 67 mg/dL (7-18) H 05/07/24 06:14 Creatinine 5.45 mg/dL (0.70-1.30) H 05/07/24 06:14 Glucose 131 mg/dL (74-106) H 05/07/24 06:14 POC Glucose 120 mg/dL (74-106) H 05/07/24 10:38 TSH 0.665 uIU/mL (0.358-3.740) 04/15/24 04:15 COAG PT 16.7 SECONDS (11.7-14.9) H 04/15/24 04:15 Pre-Assessment Diagnosis/Proposed Procedure Planned Operative Procedure(s): amputation first ray Toe Right Anesthesia History Anesthesia History - wiring technician: Anesthesia History - wiring technician Hx Hospitalization Yes: edema legs 09/26/20 11:23 Any Problems With Anesthesia No 05/07/24 09:13 Cholinesterase deficiency No 05/07/24 09:13 You/Your Family Experience No 05/07/24 09:13 fever (hyperthermia) with Relationship Recent Exposure to Contagious No 05/07/24 09:13 Disease Does patient have nerve No 05/07/24 09:13 stimulator Patient instructed to have No 05/07/24 09:13 device shut off --Does patient have Pacemaker No 05/07/24 09:09 or ICD? When Was Last Pacemaker Check QUESTION #4 FULL TEXT: You/Your Family Experience fever (hyperthermia) with Anesthesia Last Oral Intake Last Oral intake: Last Oral Intake NPO since 00:00 05/07/24 09:09 Meds taken in AM with sips of No 05/07/24 09:09 water? Meds patient instructed to take am of surgery PONV PONV - wiring technician: PONV - wiring technician Female HX of Motion Sickness HX of N/V After Surgery Non-Smoker Duration of Surgery greater than 60 minutes Number of Risk Factors PONV Score Height & Weight Height & Weight: Anesthesia: Height & Weight Height 5 ft 7 in 05/07/24 09:09 Weight: 92.533 kg 05/07/24 09:09 Body Mass Index (BMI) 31.9 05/07/24 09:09 Respiratory Assessment Respiratory Assessment - wiring technician: Respiratory Tract Infection Hx - wiring technician Hx Respiratory Tract Infection No 05/07/24 09:13 STOP Sleep Apnea STOP Sleep Apnea - wiring technician: STOP Sleep Apnea - wiring technician Hx Hypertension No 05/04/24 13:24 Hx Sleep Apnea No 05/04/24 13:24 CPAP No 05/04/24 13:24 BIPAP No 05/04/24 13:24 Do you snore loudly (louder No 05/04/24 13:24 than talking or can be heard Do you often feel tired/ No 05/04/24 13:24 fatigued/ sleepy during daytime? Has anyone observed you stop No 05/04/24 13:24 breathing during sleep? STOP Results Negative 05/04/24 13:24 QUESTION #5 FULL TEXT : Do you snore loudly (louder than talking or can be heard through closed doors)? Tobacco Use History Tobacco Use History - wiring technician: Tobacco Use History - wiring technician Tobacco Use Non-smoker 09/26/20 11:23 Smoking Status Never smoker 05/04/24 13:24 Hx Tobacco Use No 05/04/24 13:24 Years Smoking Packs Smoked per Day Smoking Cessation Date was within the last 15 years Hx Smoking Cessation Date Hx Smoking Cessation Counseling Hematologic Medial History Hematologic Hx - wiring technician: Hematologic Medical Hx - lead java programmer Hx of Blood Transfusion No 05/04/24 13:24 Hx of Transfusion in last 3 No 05/04/24 13:24 Months Date of Last Transfusion (if within last 3 months) Ever experience any problems No 05/04/24 13:24 with transfusion(s)? Specify any problems Hx of Preganancy in last 3 N/A 05/04/24 13:24 Months Nurse Filling Out Transfusion TWOLF 05/04/24 13:24 & Questions: Date: 05/04/24 05/04/24 13:24 Time: 13:26 05/04/24 13:24 Patient unable to answer at this time (ie. confused, unrespo /Reproduction History /Reproductive History - wiring technician: /Reproductive Hx- wiring technician Hx Now No 05/07/24 02:36 Gestational Age (in weeks): EDC: Hx Hx Para Hx Section SAB No 05/07/24 02:36 Active Medications Active Medications: Current Medications Generic Name Dose Route Start Last Admin Trade Name Freq PRN Reason Stop Dose Admin Acetaminophen 650 mg 05/04/24 13:21 Acetaminophen 325 Mg Tablet PO Q6H PRN PRN Pain 1-10 Or Fever >100.7 Aspirin 81 mg 05/05/24 08:00 05/06/24 08:20 Aspirin E.C. 81 Mg Tablet PO 81 mg DAILYCM CIRO Administration Calamine/Phenol 1 applic 05/06/24 22:00 05/07/24 05:57 Menthol/Lanolin/Calamine/Znox 113 Gm Tube TOPICAL 1 applic TID CIRO Administration Protocol Clopidogrel Bisulfate 75 mg 05/05/24 10:00 05/06/24 08:20 Clopidogrel Bisulfate 75 Mg Tablet PO 75 mg DAILY CIRO Administration Glucagon 1 mg 05/04/24 13:21 Glucagon 1 Mg/Ml Syringe IM X1 PRN HYPOGLYCEMIA Protocol Heparin Sodium (Porcine) 5,000 unit 05/04/24 22:00 05/05/24 21:25 Heparin Injection (Vial) 5,000 Unit/Ml Vial SC 5,000 unit Q12 CIRO Administration Dextrose 250 mls @ 0 mls/hr 05/04/24 13:21 Dextrose 10%-Water IV .Q0M PRN HYPOGLYCEMIA Protocol As Directed Sodium Chloride 100 mls @ 15 mls/hr 05/04/24 13:32 IV .Q6H40M PRN Saline Flush Sodium Chloride 100 mls @ 15 mls/hr 05/04/24 13:32 IV .Q6H40M PRN Additional IVPB Infusion Vancomycin IV-PHARMACY TO DOSE 500 mls @ 250 mls/hr 05/05/24 10:40 1 each/ Sodium Chloride IV X1 PRN Rx to Dose Protocol Ampicillin Sodium/Sulbactam 112 mls @ 150 mls/hr 05/05/24 14:00 05/06/24 15:25 Sodium 3 gm/ Sodium Chloride IV Infused DAILY@1400 CIRO Infusion Vancomycin HCl 750 mg/ Sodium 265 mls @ 250 mls/hr 05/08/24 15:00 Chloride IV 05/08/24 16:03 X1 ONE Insulin Glargine 15 unit 05/05/24 17:00 05/06/24 17:06 Insulin Glargine-Yfgn 100 Unit/Ml Pen SC 15 unit DINNER [facility] Administration Insulin Human Lispro 0 unit 05/04/24 16:00 05/07/24 11:11 Insulin Lispro 100 Unit/Ml Insuln.Pen SC Not Given ACHS [facility] Protocol Insulin Human Lispro 5 unit 05/05/24 11:00 05/07/24 11:11 Insulin Lispro 100 Unit/Ml Insuln.Pen SC Not Given TIDAC [facility] Nutritional Formula (Lactose Free) 120 ml 05/04/24 17:00 05/07/24 11:11 Glucerna Shake 120 Ml Liquid PO Not Given TIDCM CIRO Senna/Docusate Sodium 2 tablet 05/04/24 13:21 Senna/Docusate Sodium 1 Tablet PO BID PRN PRN Constipation Sodium Chloride 10 - 40 ml 05/04/24 13:32 05/05/24 12:39 0.9% Saline Lock 10 Ml Syringe IV 10 ml UD PRN Administration SALINE FLUSH Torsemide 100 mg 05/07/24 10:00 05/07/24 07:51 Torsemide 100 Mg Tablet PO Not Given [id number] [facility] Vancomycin Protocol 1 lab 05/10/24 04:00 Vancomycin Trough/Random Due 05/10/24 08:00 DAILY [facility] Medical History 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 Neuropathic ulcer of right foot with fat layer exposed Pre-op testing Loose, teeth Wears glasses Cancer Dialysis patient Kidney disease Non-smoker Edema Syncope Chronic diastolic (congestive) heart failure (04/18/20) Paroxysmal atrial fibrillation Sinus bradycardia Type 2 diabetes mellitus Hyperkalemia Swelling of both lower extremities HLD (hyperlipidemia) Left bundle-branch block 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 Abnormal electrocardiogram Home Medications ?Medication ?Instructions ?Recorded ?Last Taken ?Type cholecalciferol (vitamin D3) 25 5,000 unit PO DAILY supplement #30 05/02/20 11/06/21 Rx mcg (1,000 unit) tablet tabs aspirin 81 mg tablet,delayed 81 mg PO DAILY heart health 07/01/20 11/06/21 History release (Adult Aspirin Regimen) cyanocobalamin (vitamin B-12) 1,000 mcg PO .SUMOWEDFR supplement 10/07/23 Unknown History 1,000 mcg tablet (Vitamin B-12) torsemide 100 mg tablet 100 mg PO MOWEFR water pill 04/14/24 05/03/24 History acetaminophen 325 mg tablet 650 mg (2 x 325 mg) PO Q6H PRN PRN 04/24/24 Unknown Rx Pain 1-10 Or Fever >100.7 #0 tabs clopidogrel 75 mg tablet 75 mg PO DAILY 30 days #30 tabs 04/24/24 Unknown Rx insulin glargine 100 unit/mL (3 20 unit (0.2 mL) subcut DINNER 04/24/24 Unknown Rx mL) subcutaneous pen diabetes 30 days #0 mL insulin lispro 100 unit/mL 10 unit (0.1 mL) subcut TIDAC #0 mL 04/24/24 Unknown Rx subcutaneous pen (Humalog KwikPen (U-100) Insulin) miconazole nitrate 2 % topical 1 applic topical BID ring worm 14 04/24/24 Unknown Rx cream days #0 grams sennosides 8.6 mg-docusate sodium 2 tab PO BID PRN PRN Constipation 04/24/24 Unknown Rx 50 mg tablet (Stimulant Laxative #0 tabs Plus) insulin lispro 100 unit/mL See Protocol subcut ACHS dm 05/04/24 Unknown History subcutaneous pen (Humalog KwikPen (U-100) Insulin) Allergy/AdvReac Type Severity Reaction Status Date / Time pioglitazone (From Actos) Allergy fatigue Verified 05/04/24 09:46 simvastatin (From Zocor) Allergy myalgia Verified 05/04/24 09:46 sitagliptin (From Januvia) Allergy unknown Verified 05/04/24 09:46 Family History Mother Hypertension Father Diabetes COPD (chronic obstructive pulmonary disease) Surgical History History of cataract extraction History of ligation of vein History of arteriovenostomy for renal dialysis History of inguinal hernia repair History of appendectomy Social History Smoking Status: Never smoker alcohol intake: never substance use type: does not use caffeine: Yes Type: coffee Number of servings: 1 what type of physical activity do you participate in: none seatbelt use: always do you feel safe at home: Yes Review of Systems (Anesthesia) ROS Narrative System reviewed and no additional complaints, except as documented.
--- NOTE | 2024-05-07 12:19 | PN_ITS ---
Objective Data Objective Data Vital Signs: Vital Signs Temp Pulse Resp BP Pulse Ox O2 Del Method 98.0 F 57 L 16 145/58 H 96 Room Air 05/07/24 12:07 05/07/24 12:07 05/07/24 12:07 05/07/24 12:07 05/07/24 12:07 05/07/24 09:20 Oxygen Delivery Method Room Air Weight: 92.533 kg Body Mass Index (BMI) 31.9 Intake & Output: Intake and Output for Last 24 Hours 05/05/24 05/06/24 05/07/24 23:59 23:59 23:59 Intake Total 2202 / 2452 1262 / 1262 Output Total 2730 / 5460 5460 / 5460 0 / 0 Balance -528 / -3008 -4198 / -4198 0 / 0 Lab / Micro Data 05/07/24 06:14 05/07/24 06:14 Labs: Laboratory Results - last 24 hr 05/06/24 16:39: POC Glucose 142 H 05/06/24 21:11: POC Glucose 215 H 05/07/24 06:14: WBC 8.1, RBC 3.07 L, Hgb 9.1 L, Hct 29.8 L, MCV 97.1 H, MCH 29.6, MCHC 30.5 L, RDW Std Deviation 53.1 H, RDW Coeff of Frances 15.0 H, Plt Count 223, MPV 11.0, Sodium 134 L, Potassium 4.6, Chloride 100, Carbon Dioxide 28.0, Anion Gap 6, BUN 67 H, Creatinine 5.45 H, Estim Creat Clear Calc 10.36, Est GFR (MDRD) Af Amer 13 L, Est GFR (MDRD) Non-Af 11 L, BUN/Creatinine Ratio 12.3, G lucose 131 H, Calcium 8.7 05/07/24 10:38: POC Glucose 120 H Rhythm Strip Rhythm Strip: A-fib Rate: 55 Ectopy: None Physical Exam Narrative Vascular: Dorsalis pedis posterior tibial pulses diminished over the right foot. Atrophic skin changes noted foot is warm to palpation. Some edema and warmth noted. Absent digital hair growth noted. Necrosis to right great toe and plantar first MPJ. Neurologic: Absent light touch protective sensation to right foot and left foot. Dermatologic: Dry necrosis to the distal aspect of the hallux as well as the plantar aspect of the first MPJ with periwound erythema edema and warmth extending into the midfoot. Musculoskeletal: No gross deformity contributing to wound formation. No sign DVT. Muscular strength diminished 4 out of 5 to bilateral lower extremity compartments Assessment & Plan Assessment/Plan (1) Other acute osteomyelitis, right ankle and foot: PLAN: Exam performed. Lab work evaluated, vital signs stable Patient receiving IV antibiotics. Vascular surgery evaluated patient. Patient had initially two-vessel runoff but vascular surgery notes that the peroneal artery is now reoccluded. I do recommend continuing with amputation if there are any issues with bleeding intraoperatively or with postoperative healing distal repeat intervention. Plan for partial first ray amputation today (2) Non-pressure chronic ulcer of other part of right foot with necrosis of bone: (3) Type 2 diabetes mellitus with diabetic polyneuropathy:
--- NOTE | 2024-05-07 12:27 | CASEMGMT ---
Addendum entered by Jacqui Arora 05/07/24 14:51: Pt son-in-law, Jey, reports that pt has unlimited transport through [employer], however, the transport company contracted with insurance is changing and cannot schedule new appointments until they take over in May. Pt son-in-law states that he also called [facility] to discuss changing chair times, as transport previously declined pt because of the chair times. SAURAV will follow up when [facility] offeres a decision on referral. Jey contact is [phone]. SAURAV remains available to follow. TERRI Keating Original Note: Social Work- SW met with pt son to discuss discharge planning. Pt family met with [facility] this morning to discuss placement at d/c. SW updated that [facility] declined referral d/t lack of beds. Referral to [facility] remains pending. Pt son reports that he has been checking into transportation options. SW will remain available to follow. TERRI Keating
[2024-05-07] MEDS: Bupivacaine Mpf 0.5% 30 ML VIAL (14:06)
[2024-05-07] MEDS: Ampicillin/Sulbactam 3 GM in 0.9% Normal Saline (100mL MB+) 100 ML IV (14:20)
--- NOTE | 2024-05-07 15:05 | PCM.POST.ANE ---
Anesthesia: Postop Eval I Current Vital Signs Temperature: 97.7 F Pulse Rate: 56 Blood Pressure: 127/51 Respiratory Rate: 16 Pulse Ox: 100 Oxygen Delivery Method: Room Air Assessment Airway patent: Yes Spontaneous unlabored respirations: Yes Mental status: Awake and Calm nausea: No Vomiting: No Anesthesia Complication: No Fluid Hydration Crystalloid volume administer (ml): 50 (half of antibiotic, still infusing) Total IV fluid infused: 50 Progress Note Anesthesia document: Postop Eval 1 completed: Yes
--- NOTE | 2024-05-07 15:09 | OP.PCM_ITS ---
Problems Associated Problem List Diagnoses (1) Other acute osteomyelitis, right ankle and foot: (2) Non-pressure chronic ulcer of other part of right foot with necrosis of bone: Operative Report (Standard) Operative Information Date of Procedure: 05/07/24 Pre-Operative Diagnosis: 1) Right foot Dry gangrene with underlying osteomyelitis 2) Full Thickness wound down to bone right hallux and 1st metatarsal head Post-Operative Diagnosis: same Surgery/Procedure Performed: 1) Right partial first ray amputation 2) Advancement flap for wound coverage, right partial first ray coordinator volunteer services: No Type of Anesthesia: Local MAC RN Documented Start/Stop Times: Operation Date: 05/07/24 11:00 Case Time Into Pre-Op 05/07/24 11:26 Anesthesia Start 05/07/24 13:54 Into Room 05/07/24 13:54 Procedure Start 05/07/24 14:15 Procedure End 05/07/24 14:54 Anesthesia End 05/07/24 14:59 Out of Room 05/07/24 14:59 Into Recovery 05/07/24 15:03 Procedure Start Time: 02:00 Procedure Stop Time: 15:13 Select all DRAINS/GRAFTS/IMPLANTS that apply: None Special Medications: 30cc 0.5% marcaine plain Estimated Blood Loss: 50cc Specimen collected: Yes Description of specimen(s) removed: right hallux and 1st ray for path/micro Description of surgery: Patient developed dry gangrene with osteomyelitis right hallux after vascular intervention. After vascular intervention patient did had two-vessel runoff runoff to right foot Right peroneal artery has reoccluded and patient has one-vessel runoff to right foot. Due to acute infection vascular surgery recommended proceeding with amputation of the right knee delays in healing they will repeat intervention Patient was brought back into the operating room and placed comfortably in the supine position on the operating room table. Patient induced under MAC anesthesia. Well-padded right ankle tourniquet applied. 20 cc half percent Marcaine plain were injected aseptically using a Barry block technique. Right lower extremity scrubbed prepped and draped using typical aseptic fashion. Once cleared by anesthesia right lower extremity was elevated exsanguinated tourniquet was inflated to 250 mmHg. An elliptical incision was made to excise the necrosis to the plantar first metatarsal head and the tip of the hallux. This incision was made full- thickness with a #15 blade through epidermis there is down to level of bone. Any bleeders identified cauterized at this time. The first hallux was removed at the level of the metatarsal phalangeal joint as well as first metatarsal excision at the base using a sagittal saw. Any additional necrotic tissue including the FHL FHP EHL EHB tendons were excised from the wound bed. There is noted be a bleeder plantarly and dorsally this was tied using 3-0 Vicryl. Additional electrocautery was performed to some small bleeders to the periwound area. Site was flushed with copious amounts normal sterile saline. There was noted to be a wound defect along the distal aspect of the incision at which time a Burow's ankle flap would be created with a 15 blade mobilizing tissue to allow for adequate soft tissue coverage. This flap was undermined and advanced however incomplete coverage of the distal wound was noted. Residual wound was noted be 1.5 x 1.5 x 0.5 cm. Without flap closure of the wound would be significantly larger. The flap demonstrated adequate blanching upon letting down the tourniquet. No residual necrotic nonviable or deep infected tissue no henry. Tourniquet was let down. Hemostasis was noted. Total tourniquet time was 16 minutes. Incisional site was closed with horizontal mattress and simple interrupted 3-0 Prolene. Additional 10 cc of half percent Marcaine plain was injected in a Barry block technique. Sites were dressed with Betadine Adaptic 4 x 4's Kerlix ABD pads Kerlix and an Alessandro. Patient was transported to PACU with vital signs stable and vascular status intact all dated for further monitoring prior to transfer back to the floor. Patient tolerated procedure and anesthesia well in apparent satisfactory condition. Adequate bleeding noted throughout the case suggestive of good healing potential No residual nonviable or infected tissue noted to the wound base No complications noted Surgical Findings: As dictated above Complications Complications: No
--- NOTE | 2024-05-07 15:40 | RAD_ITS ---
STUDY: X-RAY - RIGHT FOOT CLINICAL: Male, 89 years old. right foot surgery TECHNIQUE: 2 view(s) of the foot. COMPARISON: 05/04/2024. FINDINGS: Since 3 days prior, patient had amputation of the first ray, just distal to the base of the first metatarsal. Soft tissue deformity and subcutaneous gas seen consistent with the recent surgery. No other changes or acute abnormalities. No definite destructive osseous lesions. Prominent calcification of the vessels in the foot consistent with advanced atherosclerosis. RAD/Foot 2 Views IMPRESSION: Status post amputation of the first ray, through the proximal metaphysis with no other definite change or acute abnormality. Electronically Signed: Tripp Bradley MD at 16:12 EST ,
--- NOTE | 2024-05-07 15:51 | NURSING ---
back in room via bed from surgery.
[2024-05-07] MEDS: Insulin Glargine-YFGN 100 UNIT/ML Pen 15 UNIT SC (16:15)
[2024-05-07] MEDS: Torsemide 100 MG Tablet PO (16:15)
[2024-05-07 16:54] LABS: Bedside Glucose 102 mg/dL (74-106)
--- NOTE | 2024-05-07 17:14 | POSTOPAN2_ITS ---
Anesthesia Postop Eval I Sum Postop Eval Completion status Anesthesia document: Postop Eval 1 completed: Yes Anesthesia Postop Eval I Summary Anesthesia Postop Eval I Summary: Anesthesia Postop Eval I: Assessment Summary Airway patent Yes 05/07/24 15:06 MANAGEMENT SUPERVISOR.HUMBLEOBMike Spontaneous unlabored Yes 05/07/24 15:06 MANAGEMENT SUPERVISOR.ASIF respirations Mental status Awake,Calm 05/07/24 15:06 MANAGEMENT SUPERVISOR.HUMBLEOBMike nausea No 05/07/24 15:06 MANAGEMENT SUPERVISOR.HUMBLEOBMike Vomiting No 05/07/24 15:06 MANAGEMENT SUPERVISOR.HUMBLEOBMike Anesthesia Postop Eval I: Fluid Summary Crystalloid volume administer 50 - half of 05/07/24 15:06 MANAGEMENT SUPERVISOR.SKOBY (ml) antibiotic, still infusing Colloids volume administered ( ml) Blood Product volume administered (ml) Total IV fluid infused 50 05/07/24 15:06 MANAGEMENT SUPERVISOR.ASIF Anesthesia Postop Eval I: Summary Notes Anesthesia Complication No 05/07/24 15:06 MANAGEMENT SUPERVISORESSIE Anesthesia Complication Comment: Post-operative progress note Anesthesia: Postop Eval II Evaluation Mental status: Awake Pain Level: 0 nausea: No Vomiting: No
--- NOTE | 2024-05-07 17:14 | PCM.POSTANE2 ---
Anesthesia Postop Eval I Sum Postop Eval Completion status Anesthesia document: Postop Eval 1 completed: Yes Anesthesia Postop Eval I Summary Anesthesia Postop Eval I Summary: Anesthesia Postop Eval I: Assessment Summary Airway patent Yes 05/07/24 15:06 SOLUTION PROFESSIONAL.HUMBLEOBMike Spontaneous unlabored Yes 05/07/24 15:06 SOLUTION PROFESSIONAL.ASIF respirations Mental status Awake,Calm 05/07/24 15:06 SOLUTION PROFESSIONAL.HUMBLEOBMike nausea No 05/07/24 15:06 SOLUTION PROFESSIONAL.HUMBLEOBMike Vomiting No 05/07/24 15:06 SOLUTION PROFESSIONAL.HUMBLEOBMike Anesthesia Postop Eval I: Fluid Summary Crystalloid volume administer 50 - half of 05/07/24 15:06 SOLUTION PROFESSIONAL.SKOBY (ml) antibiotic, still infusing Colloids volume administered ( ml) Blood Product volume administered (ml) Total IV fluid infused 50 05/07/24 15:06 SOLUTION PROFESSIONAL.ASIF Anesthesia Postop Eval I: Summary Notes Anesthesia Complication No 05/07/24 15:06 SOLUTION PROFESSIONALESSIE Anesthesia Complication Comment: Post-operative progress note Anesthesia: Postop Eval II Evaluation Mental status: Awake Pain Level: 0 nausea: No Vomiting: No
[2024-05-07] MEDS: 0.9% Saline Lock 10 ML Syringe IV (22:08)
[2024-05-07 23:48] LABS: Bedside Glucose 148 mg/dL (74-106)
[2024-05-08] VITALS (15 sets, daily range): BP systolic 109–222; BP diastolic 44–79; PULSE 43–67; RESP 12–16; TEMP 36.4–37.2; O2SAT 91–96; BMI 32.0; BMI 31.2
[2024-05-08] MEDS: Menthol/Lanolin/Calamine/Znox 113 GM Tube 1 APPLIC TOPICAL ×3 (06:04→21:47)
[2024-05-08 06:59] LABS: Hematocrit 29.5 % (40-54); Hemoglobin 8.8 g/dL (13.0-16.5); Mean Corp Hgb Conc 29.8 g/dL (32-36); Mean Corpuscular Hgb 28.9 pg (27.0-32.0); Mean Platelet Vol. 11.3 fl (6.2-12.0); Platelet Count 210 K/mm3 (150-450); RBC Distribution Width CV 14.9 % (11.6-14.6); RBC Distribution Width SD 52.8 fl (35.1-43.9); Red Blood Count 3.04 M/mm3 (4.6-6.2); White Blood Count 9.7 K/mm3 (4.4-11.0)
[2024-05-08 07:47] LABS: Anion Gap 7 (5-15); BUN 75 mg/dL (7-18); Calcium,Total 8.5 mg/dL (8.5-10.1); Chloride 99 mmol/L (98-107); Creatinine, Serum 6.26 mg/dL (0.70-1.30); EST Glomerular Filtration Rate 9 mL/min (>60); Est Glom Filt Rate - Afr Amer 11 mL/min (>60); Estimated Creatinine Clearance 9.02 ml/min; Glucose 198 mg/dL (74-106); Potassium 4.9 mmol/L (3.5-5.1); Sodium Level 133 mmol/L (136-145)
--- NOTE | 2024-05-08 09:40 | WOUNDNOTE ---
wound photo: right foot
--- NOTE | 2024-05-08 09:41 | WOUNDNOTE ---
wound photo: right foot
--- NOTE | 2024-05-08 09:41 | WOUNDNOTE ---
wound photo: right foot
--- NOTE | 2024-05-08 09:52 | PCM.CONS.GEN ---
Assessment & Plan Assessment/Plan (1) Other acute osteomyelitis, right ankle and foot: PLAN: R foot gangrene, now s/p partial 1st ray resection by Dr. Ruelas 05/07/24. Cont vanc/unasyn. Will follow, thank you (2) Diabetes mellitus with diabetic polyneuropathy: (3) ESRD (end stage renal disease): HPI Consult Data Date of Consult: 05/08/24 HPI Narrative Reason for Consultation: osteo HPI Narrative: PERLA LUBIN, is a 89 M with ESRD, DM with neuropathy, recently admitted with R foot myositis and cellulitis. Completed abx, developed new necrosis, admitted 05/04. Taken to OR 05/[address] Ruelas for R partial 1st ray resection. Denies pain, no fever, no n/v/d. Full ROS performed and neg except as noted above. 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 Pre-op testing Loose, teeth Wears glasses Cancer Dialysis patient Kidney disease Non-smoker Edema Syncope Chronic diastolic (congestive) heart failure (04/18/20) Paroxysmal atrial fibrillation Sinus bradycardia Type 2 diabetes mellitus Hyperkalemia Swelling of both lower extremities HLD (hyperlipidemia) Left bundle-branch block 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 Abnormal electrocardiogram Home Medications ?Medication ?Instructions ?Recorded ?Last Taken ?Type cholecalciferol (vitamin D3) 25 5,000 unit PO DAILY supplement #30 05/02/20 11/06/21 Rx mcg (1,000 unit) tablet tabs aspirin 81 mg tablet,delayed 81 mg PO DAILY heart health 07/01/20 11/06/21 History release (Adult Aspirin Regimen) cyanocobalamin (vitamin B-12) 1,000 mcg PO .SUMOWEDFR supplement 10/07/23 Unknown History 1,000 mcg tablet (Vitamin B-12) torsemide 100 mg tablet 100 mg PO MOWEFR water pill 04/14/24 05/03/24 History acetaminophen 325 mg tablet 650 mg (2 x 325 mg) PO Q6H PRN PRN 04/24/24 Unknown Rx Pain 1-10 Or Fever >100.7 #0 tabs clopidogrel 75 mg tablet 75 mg PO DAILY 30 days #30 tabs 04/24/24 Unknown Rx insulin glargine 100 unit/mL (3 20 unit (0.2 mL) subcut DINNER 04/24/24 Unknown Rx mL) subcutaneous pen diabetes 30 days #0 mL insulin lispro 100 unit/mL 10 unit (0.1 mL) subcut TIDAC #0 mL 04/24/24 Unknown Rx subcutaneous pen (Humalog KwikPen (U-100) Insulin) miconazole nitrate 2 % topical 1 applic topical BID ring worm 14 04/24/24 Unknown Rx cream days #0 grams sennosides 8.6 mg-docusate sodium 2 tab PO BID PRN PRN Constipation 04/24/24 Unknown Rx 50 mg tablet (Stimulant Laxative #0 tabs Plus) insulin lispro 100 unit/mL See Protocol subcut ACHS dm 05/04/24 Unknown History subcutaneous pen (Humalog KwikPen (U-100) Insulin) Allergy/AdvReac Type Severity Reaction Status Date / Time pioglitazone (From Actos) Allergy fatigue Verified 05/04/24 09:46 simvastatin (From Zocor) Allergy myalgia Verified 05/04/24 09:46 sitagliptin (From Januvia) Allergy unknown Verified 05/04/24 09:46 Family History Mother Hypertension Father Diabetes COPD (chronic obstructive pulmonary disease) Surgical History History of cataract extraction History of ligation of vein History of arteriovenostomy for renal dialysis History of inguinal hernia repair History of appendectomy Social History Smoking Status: Never smoker alcohol intake: never substance use type: does not use caffeine: Yes Type: coffee Number of servings: 1 what type of physical activity do you participate in: none seatbelt use: always do you feel safe at home: Yes Physical Exam Const alert, oriented x3 and no apparent distress General Appearance: cooperative HEENT normocephalic and head/scalp atraumatic Eyes PERRL and EOMs intact bilaterally Neck supple and No nodes Resp normal air movement and clear to auscultation bilaterally Cardio regular rate and regular rhythm GI soft to palpation, non-tender and non-distended Extremity General Extremity: Negative for edema Skin Skin Narrative: reviewed wound photos Neuro CN's II-XII intact bilaterally Lab / Micro Data Attestation: I reviewed the patient's lab results. 05/08/24 06:06 05/08/24 06:06 Labs: Laboratory Results - last 24 hr 05/07/24 10:38: POC Glucose 120 H 05/07/24 16:13: POC Glucose 102 05/07/24 22:07: POC Glucose 148 H 05/08/24 06:06: WBC 9.7, RBC 3.04 L, Hgb 8.8 L, Hct 29.5 L, MCV 97.0 H, MCH 28.9, MCHC 29.8 L, RDW Std Deviation 52.8 H, RDW Coeff of Frances 14.9 H, Plt Count 210, MPV 11.3, Sodium 133 L, Potassium 4.9, Chloride 99, Carbon Dioxide 27.0, Anion Gap 7, BUN 75 H, Creatinine 6.26 H, Estim Creat Clear Calc 9.02, Est GFR (MDRD) Af Amer 11 L, Est GFR (MDRD) Non-Af 9 L, BUN/Creatinine Ratio 12.0, Glucose 198 H, Calcium 8.5 Rhythm Strip Rhythm Strip: A-fib Rate: 55 Ectopy: None Imaging Radiology Impression Duplex Scan Lower Extremity Artery 05/04/24 13:55 Interpretation Summary Right SFA/popliteal artery patent with no stenosis. Right anterior tibial artery, posterior tibial artery patent with no stenosis Right peroneal artery occluded Ordering Physician: Salma Cervantes Referring Physician: Kiran Yan Performed By: Anne-Marie Monzon RVT Ankle Brachial Index 05/04/24 13:56 Interpretation Summary Right RAN not able to be obtained due to non-compressible vessels. Doppler/PVR waveforms of the right ankle moderately diminished at rest. TBI and digit waveforms not obtained. Left RAN not able to be obtained due to non-compressible vessels. Doppler/PVR waveforms of the left ankle moderately diminished at rest. TBI diminished consistent with disease. Ordering Physician: Salma Cervantes Referring Physician: Umang Yan Performed By: Wali Tam, T Foot X-Ray 05/07/24 15:40 IMPRESSION: Status post amputation of the first ray, through the proximal metaphysis with no other definite change or acute abnormality. Electronically Signed: Tripp Bradley MD at 16:12 EST ,
--- NOTE | 2024-05-08 11:05 | PN.HOSP_ITS ---
Reason for Visit Reason for Visit: Diagnoses Type 2 diabetes mellitus with diabetic polyneuropathy (05/04/24) Other disorder of circulatory system (05/04/24) Non-pressure chronic ulcer of other part of right foot with necrosis of bone (05/04/24) Non-pressure chronic ulcer of other part of right foot with unspecified severity (05/04/24) Other acute osteomyelitis, right ankle and foot (05/04/24) End stage renal disease (05/04/24) Subjective Subjective Saw patient at bedside this morning. Patient was having dialysis done when I saw him. He tolerated the procedure well yesterday. Denied any acute pain or discomfort this morning. No new concerns. Objective Data Objective Data Vital Signs: Vital Signs Temp Pulse Resp BP Pulse Ox O2 Del Method 97.5 F L 59 L 16 133/61 H 92 Room Air 05/08/24 08:27 05/08/24 11:00 05/08/24 09:30 05/08/24 11:00 05/08/24 09:30 05/08/24 09:30 Oxygen Delivery Method Room Air Weight: 92.533 kg Body Mass Index (BMI) 32.0 Intake & Output: Intake and Output for Last 24 Hours 05/06/24 05/07/24 05/08/24 23:59 23:59 23:59 Intake Total 1262 / 1262 472 / 572 300 / 300 Output Total 5460 / 5460 0 / 10 Balance -4198 / -4198 472 / 562 290 / 290 Lab / Micro Data 05/08/24 06:06 05/08/24 06:06 Labs: Laboratory Results - last 24 hr 05/07/24 16:13: POC Glucose 102 05/07/24 22:07: POC Glucose 148 H 05/08/24 06:06: WBC 9.7, RBC 3.04 L, Hgb 8.8 L, Hct 29.5 L, MCV 97.0 H, MCH 28.9, MCHC 29.8 L, RDW Std Deviation 52.8 H, RDW Coeff of Frances 14.9 H, Plt Count 210, MPV 11.3, Sodium 133 L, Potassium 4.9, Chloride 99, Carbon Dioxide 27.0, Anion Gap 7, BUN 75 H, Creatinine 6.26 H, Estim Creat Clear Calc 9.02, Est GFR (MDRD) Af Amer 11 L, Est GFR (MDRD) Non-Af 9 L, BUN/Creatinine Ratio 12.0, G lucose 198 H, Calcium 8.5 Micro: Microbiology 05/07/24 11:00 Bone - Right Foot Wound Culture - Preliminary Alpha hemolytic organism Radiography Diagnostic Testing: Radiology Impression Duplex Scan Lower Extremity Artery 05/04/24 13:55 Interpretation Summary Right SFA/popliteal artery patent with no stenosis. Right anterior tibial artery, posterior tibial artery patent with no stenosis Right peroneal artery occluded Ordering Physician: Salma Cervantes Referring Physician: Kiran Yan Performed By: Anne-Marie Monzon RVT Ankle Brachial Index 05/04/24 13:56 Interpretation Summary Right RAN not able to be obtained due to non-compressible vessels. Doppler/PVR waveforms of the right ankle moderately diminished at rest. TBI and digit waveforms not obtained. Left RAN not able to be obtained due to non-compressible vessels. Doppler/PVR waveforms of the left ankle moderately diminished at rest. TBI diminished consistent with disease. Ordering Physician: Salma Cervantes Referring Physician: Umang Yan Performed By: Wali Tam RVT Foot X-Ray 05/07/24 15:40 IMPRESSION: Status post amputation of the first ray, through the proximal metaphysis with no other definite change or acute abnormality. Electronically Signed: Tripp Bradley MD at 16:12 EST , Rhythm Strip Rhythm Strip: A-fib Rate: 55 Ectopy: None Physical Exam Const alert, oriented x3 and no apparent distress Constitutional Narrative: Elderly male, class I obesity, mildly fatigued appearing, otherwise sitting up comfortably in bed, conversing normally, no acute distress. Stable. General Appearance: cooperative and comfortable HEENT normocephalic, head/scalp atraumatic, hearing grossly normal bilaterally, nasal mucous membranes and turbinates normal and moist oral mucous membranes Eyes PERRL, EOMs intact bilaterally and conjunctivae normal Neck full ROM Chest inspection of chest normal Resp normal respiratory effort, normal air movement, no use of accessory muscles and clear to auscultation bilaterally Cardio regular rate, regular rhythm, no murmurs and peripheral pulses 2+ throughout GI normal to inspection, nondistended, normoactive bowel sounds, soft to palpation, non-tender and non-distended Back/Spine normal ROM Extremity Extremity Narrative: Status post right first toe amputation with dressing in place. Reviewed wound photos. Neuro moves all extremities Psych mental status grossly normal Assessment & Plan Assessment/Plan (1) Ischemic ulcer of toe of right foot: PLAN: Plan Patient is an 89-year-old male who presented [facility] ED on 05/04/2024 with worsening right foot wound. 1. Peripheral vascular disease s/p right anterior tibial stent with new right ischemic great toe and right foot cellulitis ? Podiatry, vascular surgery and infectious disease following. PT/OT/case management following. Patient with nonhealing right great toe wound with worsening chronic ischemia and concern for right foot cellulitis. S/p right foot partial first ray amputation on 05/07 with podiatry. Noted to have adequate bleeding throughout the case suggestive of good healing potential. Postoperative vascular studies completed with reads pending. Will continue IV vancomycin and Unasyn for now. Continue home aspirin and Plavix. Planning for SNF placement on discharge. Appreciate further specialist recs. 2. ESRD on HD ? Nephrology following. Continue HD Tuesday schedule. Monitor daily BMP. 3. Type 2 diabetes mellitus ? Treating with reduced doses from home of Lantus 15 units at dinner and 5 units with meals plus sliding scale insulin, adjust as needed. 4. Sinus bradycardia ? Known history of sinus bradycardia at baseline. 5. Class I obesity ? BMI 32 on admit. Complicates hospital course, care and prognosis. 6. Chronic normocytic anemia ? Hemoglobin has been stable at baseline 9-10 since admission. Follow-up CBC tomorrow postoperatively. DVT prophylaxis: Heparin subcu CODE STATUS: Full code, verified Expected disposition: SNF, D Total clinical time spent by myself addressing the patient's medical issues, reviewing all the data, and collaborating with patient's care team: 35 minutes. Charges/Coding Visit Charges Inpatient E&M: 71746 Subs Hosp L2
[2024-05-08] MEDS: Insulin Lispro 100 UNIT/ML INSULN.PEN SC ×5 (11:18→21:48)
[2024-05-08 11:41] LABS: Bedside Glucose 194 mg/dL (74-106)
--- NOTE | 2024-05-08 12:15 | CASEMGMT ---
Social Work- SAURAV met with Jey, to provide updates and support and review information. Pt family continues to be very proactive and anxious about timeliness of discharge and discharge plans due to prior incident. SAURAV continues to collaborate with family to coordinate care and discharge plans. Pt therapies on hold until dialysis completion. SAURAV advised DCA that therapy documentation will be available after 13:00. SAURAV remains available to follow. TERRI Keating
[2024-05-08] MEDS: 0.9% Normal Saline 1,000 ML IV.SOLN. 1000 ML OPERA.SITE (13:13)
[2024-05-08] MEDS: PureFlow B 2K Dialysis Soln 1 BAG 6 BAG PF (13:14)
--- NOTE | 2024-05-08 13:15 | PCM.PN.REN ---
Subjective Subjective Seen at end of HD session. No complaints. Tolerated dialysis well today. Objective Data Objective Data Vital Signs: Vital Signs Temp Pulse Resp BP Pulse Ox O2 Del Method 97.8 F 56 L 12 139/44 H 93 Room Air 05/08/24 12:57 05/08/24 12:57 05/08/24 12:57 05/08/24 12:57 05/08/24 12:57 05/08/24 12:57 Oxygen Delivery Method Room Air Weight: 90.3 kg Body Mass Index (BMI) 31.2 Intake & Output: Intake and Output for Last 24 Hours 05/06/24 05/07/24 05/08/24 23:59 23:59 23:59 Intake Total 1262 / 1262 472 / 572 300 / 300 Output Total 5460 / 5460 0 / 10 2210 / 2210 Balance -4198 / -4198 472 / 562 -1910 / -1910 Lab / Micro Data 05/08/24 06:06 05/08/24 06:06 Labs: Laboratory Results - last 24 hr 05/07/24 16:13: POC Glucose 102 05/07/24 22:07: POC Glucose 148 H 05/08/24 06:06: WBC 9.7, RBC 3.04 L, Hgb 8.8 L, Hct 29.5 L, MCV 97.0 H, MCH 28.9, MCHC 29.8 L, RDW Std Deviation 52.8 H, RDW Coeff of Frances 14.9 H, Plt Count 210, MPV 11.3, Sodium 133 L, Potassium 4.9, Chloride 99, Carbon Dioxide 27.0, Anion Gap 7, BUN 75 H, Creatinine 6.26 H, Estim Creat Clear Calc 9.02, Est GFR (MDRD) Af Amer 11 L, Est GFR (MDRD) Non-Af 9 L, BUN/Creatinine Ratio 12.0, Glucose 198 H, Calcium 8.5 05/08/24 11:16: POC Glucose 194 H Micro: Microbiology 05/07/24 11:00 Bone - Right Foot Wound Culture - Preliminary Alpha hemolytic organism Radiography Diagnostic Testing: Radiology Impression Duplex Scan Lower Extremity Artery 05/04/24 13:55 Interpretation Summary Right SFA/popliteal artery patent with no stenosis. Right anterior tibial artery, posterior tibial artery patent with no stenosis Right peroneal artery occluded Ordering Physician: Salma Cervantes Referring Physician: Kiran Yan Performed By: Anne-Marie Monzon, RVT Ankle Brachial Index 05/04/24 13:56 Interpretation Summary Right RAN not able to be obtained due to non-compressible vessels. Doppler/PVR waveforms of the right ankle moderately diminished at rest. TBI and digit waveforms not obtained. Left RAN not able to be obtained due to non-compressible vessels. Doppler/PVR waveforms of the left ankle moderately diminished at rest. TBI diminished consistent with disease. Ordering Physician: Salma Cervantes Referring Physician: Umang Yan Performed By: Wali Tam, RVLogan Foot X-Ray 05/07/24 15:40 IMPRESSION: Status post amputation of the first ray, through the proximal metaphysis with no other definite change or acute abnormality. Electronically Signed: Tripp Bradley MD at 16:12 EST , Rhythm Strip Rhythm Strip: A-fib Rate: 55 Ectopy: None Physical Exam Narrative Currently resting comfortably S1-S2 regular Breath sounds equal anteriorly Left forearm AV fistula Abdomen is nontender No significant peripheral edema Assessment & Plan Assessment/Plan (1) ESRD (end stage renal disease): PLAN: - End-stage renal disease on hemodialysis [facility] Thursday Saturday at [facility] [place]. Dialysis today over 4 hours and removed ~2.2L. Likely plan for next dialysis on . -Anemia of chronic disease; receives long-acting CRYSTAL and iron at kidney center. Will monitor hemoglobin trends -Osteomyelitis right foot status post partial first ray resection 05/07. On antibiotics per ID, vancomycin and Unasyn.
[2024-05-08] MEDS: Ampicillin/Sulbactam 3 GM in 0.9% Normal Saline (100mL MB+) 100 ML IV (15:27)
[2024-05-08] MEDS: Insulin Glargine-YFGN 100 UNIT/ML Pen 15 UNIT SC (17:27)
[2024-05-08] MEDS: Vancomycin HCl 750 MG in 0.9% Normal Saline (250mL Bag) 250 ML 250 MG IV (17:32)
--- NOTE | 2024-05-08 18:25 | PCM.PN.SRG ---
Subjective Subjective Mr. Thompson was seen resting in the bedside chair with family member at bedside. He had R 1st toe amputation by Dr. Ruelas yesterday. He reports his pain is well-controlled. He had no complaints. Objective Data Objective Data Vital Signs: Vital Signs Temp Pulse Resp BP Pulse Ox O2 Del Method 97.8 F 56 L 12 139/44 H 93 Room Air 05/08/24 12:57 05/08/24 12:57 05/08/24 12:57 05/08/24 12:57 05/08/24 12:57 05/08/24 12:57 Oxygen Delivery Method Room Air Weight: 199 lb 1.239 oz Body Mass Index (BMI) 31.2 Intake & Output: Intake and Output for Last 24 Hours 05/06/24 05/07/24 05/08/24 23:59 23:59 23:59 Intake Total 1262 / 1262 472 / 572 652 / 652 Output Total 5460 / 5460 0 / 10 4410 / 4410 Balance -4198 / -4198 472 / 562 -3758 / -3758 Lab / Micro Data 05/08/24 06:06 05/08/24 06:06 Labs: Laboratory Results - last 24 hr 05/07/24 22:07: POC Glucose 148 H 05/08/24 06:06: WBC 9.7, RBC 3.04 L, Hgb 8.8 L, Hct 29.5 L, MCV 97.0 H, MCH 28.9, MCHC 29.8 L, RDW Std Deviation 52.8 H, RDW Coeff of Frances 14.9 H, Plt Count 210, MPV 11.3, Sodium 133 L, Potassium 4.9, Chloride 99, Carbon Dioxide 27.0, Anion Gap 7, BUN 75 H, Creatinine 6.26 H, Estim Creat Clear Calc 9.02, Est GFR (MDRD) Af Amer 11 L, Est GFR (MDRD) Non-Af 9 L, BUN/Creatinine Ratio 12.0, Glucose 198 H, Calcium 8.5 05/08/24 11:16: POC Glucose 194 H Micro: Microbiology 05/07/24 11:00 Bone - Right Foot Gram Stain - Final 05/07/24 11:00 Bone - Right Foot Wound Culture - Preliminary Alpha hemolytic organism Radiography Diagnostic Testing: Radiology Impression Duplex Scan Lower Extremity Artery 05/04/24 13:55 Interpretation Summary Right SFA/popliteal artery patent with no stenosis. Right anterior tibial artery, posterior tibial artery patent with no stenosis Right peroneal artery occluded Ordering Physician: Salma Cervantes Referring Physician: Kiran Yan Performed By: Anne-Marie Monzon, RVT Ankle Brachial Index 05/04/24 13:56 Interpretation Summary Right RAN not able to be obtained due to non-compressible vessels. Doppler/PVR waveforms of the right ankle moderately diminished at rest. TBI and digit waveforms not obtained. Left RAN not able to be obtained due to non-compressible vessels. Doppler/PVR waveforms of the left ankle moderately diminished at rest. TBI diminished consistent with disease. Ordering Physician: Salma Cervantes Referring Physician: Umang Yan Performed By: Wali Tam RVLogan Rhythm Strip Rhythm Strip: A-fib Rate: 55 Ectopy: None Physical Exam Const alert, oriented x3, no apparent distress and healthy appearing General Appearance: cooperative; Negative for combative or lethargic Orientation / Consciousness: awake Exam Limitations: no limitations HEENT Head and Scalp: normocephalic and atraumatic Eyes EOMs intact bilaterally General Eye: normal appearance of both eyes Neck full ROM and no lymphadenopathy General: trachea midline; Negative for lymphadenopathy Resp normal respiratory effort and no use of accessory muscles Effort and Inspection: Negative for labored, stridor or audible wheezes Cardio regular rate, regular rhythm and no murmurs Peripheral Pulses: brachial pulses present, radial pulses present, femoral pulses present and popliteal pulses present Extremity no clubbing, cyanosis or edema Skin Wound Narrative: Wound pictures reviewed s/p R 1st toe amputation. Skin edges all appear viable. The small portion of the incision which remains open has pink tissue at the base. Other toes visible through the dressings are pink, no ischemic changes. 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 Ruelas, he noted adequate bleeding at the time of surgery which appeared sufficient to heal. So far, wound edges appear viable. As noted, his AT is his dominant inflow to the pedal arch and his AT intervention remains patent. No further intervention indicated at this time. Will continue to follow along while he is inpatient, will plan for outpatient follow-up approximately 2 weeks from discharge. Continue Plavix and ASA. Charges/Coding Visit Charges Inpatient E&M: 11151 Subs Hosp L1
[2024-05-08 23:09] LABS: Bedside Glucose 212 mg/dL (74-106)
[2024-05-08 23:18] LABS: Bedside Glucose 154 mg/dL (74-106)
[2024-05-09] VITALS (7 sets, daily range): BP systolic 113–123; BP diastolic 49–58; PULSE 57–59; RESP 15–18; TEMP 36.7–37.2; O2SAT 95–98
[2024-05-09] MEDS: Menthol/Lanolin/Calamine/Znox 113 GM Tube 1 APPLIC TOPICAL ×3 (05:59→22:00)
[2024-05-09 07:50] LABS: Hematocrit 29.4 % (40-54); Hemoglobin 8.7 g/dL (13.0-16.5); Mean Corp Hgb Conc 29.6 g/dL (32-36); Mean Corpuscular Hgb 28.5 pg (27.0-32.0); Mean Corpuscular Volume 96.4 fL (80-94); Mean Platelet Vol. 11.5 fl (6.2-12.0); Platelet Count 206 K/mm3 (150-450); RBC Distribution Width CV 15.1 % (11.6-14.6); RBC Distribution Width SD 53.7 fl (35.1-43.9); Red Blood Count 3.05 M/mm3 (4.6-6.2); White Blood Count 10.1 K/mm3 (4.4-11.0)
[2024-05-09 08:02] LABS: Anion Gap 6 (5-15); BUN 47 mg/dL (7-18); BUN/Creat Ratio 9.9 RATIO (10-20); Calcium,Total 8.8 mg/dL (8.5-10.1); Chloride 102 mmol/L (98-107); Creatinine, Serum 4.74 mg/dL (0.70-1.30); EST Glomerular Filtration Rate 13 mL/min (>60); Est Glom Filt Rate - Afr Amer 15 mL/min (>60); Estimated Creatinine Clearance 11.77 ml/min; Glucose 105 mg/dL (74-106); Potassium 4.2 mmol/L (3.5-5.1); Sodium Level 135 mmol/L (136-145)
[2024-05-09] MEDS: Torsemide 100 MG Tablet PO (08:07)
[2024-05-09 08:31] LABS: Bedside Glucose 90 mg/dL (74-106)
--- NOTE | 2024-05-09 10:35 | WOUNDNOTE ---
wound photo: right foot
--- NOTE | 2024-05-09 10:36 | WOUNDNOTE ---
wound photo: right foot
--- NOTE | 2024-05-09 10:36 | WOUNDNOTE ---
wound photo: right foot
--- NOTE | 2024-05-09 11:17 | CASEMGMT ---
Discharge Planning [facility] has accepted and will submit for precert. SW updated. Alanna Gaston DC Planning Asst.
--- NOTE | 2024-05-09 11:31 | CASEMGMT ---
Social Work SW let pt know that [facility] accepted pt and they will start precert. SW also called daughter Hilaria and let her know [facility] accepted pt and they will start precert. Hilaria in agreement w/plan. KIM Carrion
[2024-05-09] MEDS: Insulin Lispro 100 UNIT/ML INSULN.PEN SC ×4 (11:40→17:12)
--- NOTE | 2024-05-09 11:43 | PCM.PN.HOSP ---
Reason for Visit Reason for Visit: Diagnoses Type 2 diabetes mellitus with diabetic polyneuropathy (05/04/24) Atherosclerosis of [place] arteries of right leg with ulceration of other part of foot (05/04/24) Other disorder of circulatory system (05/04/24) Non-pressure chronic ulcer of other part of right foot with necrosis of bone (05/04/24) Non-pressure chronic ulcer of other part of right foot with unspecified severity (05/04/24) Other acute osteomyelitis, right ankle and foot (05/04/24) End stage renal disease (05/04/24) Subjective Subjective Saw patient at bedside this morning. Patient was sitting up comfortably in bedside chair, in no acute distress. Appeared to have a bit more energy today compared to yesterday. Denied any foot pain or discomfort. No other new concerns today. Objective Data Objective Data Vital Signs: Vital Signs Temp Pulse Resp BP Pulse Ox O2 Del Method 98.4 F 58 L 16 123/52 H 97 Room Air 05/09/24 08:00 05/09/24 08:00 05/09/24 08:00 05/09/24 08:00 05/09/24 08:00 05/09/24 08:00 Oxygen Delivery Method Room Air Weight: 90.3 kg Body Mass Index (BMI) 31.2 Intake & Output: Intake and Output for Last 24 Hours 05/07/24 05/08/24 05/09/24 23:59 23:59 23:59 Intake Total 472 / 572 1857 / 1857 400 / 400 Output Total 0 / 10 4410 / 4410 Balance 472 / 562 -2553 / -2553 400 / 400 Lab / Micro Data 05/09/24 06:30 05/09/24 06:30 Labs: Laboratory Results - last 24 hr 05/08/24 17:25: POC Glucose 212 H 05/08/24 21:34: POC Glucose 154 H 05/09/24 06:30: WBC 10.1, RBC 3.05 L, Hgb 8.7 L, Hct 29.4 L, MCV 96.4 H, MCH 28.5, MCHC 29.6 L, RDW Std Deviation 53.7 H, RDW Coeff of Frances 15.1 H, Plt Count 206, MPV 11.5, Sodium 135 L, Potassium 4.2, Chloride 102, Carbon Dioxide 27.0, Anion Gap 6, BUN 47 H, Creatinine 4.74 H, Estim Creat Clear Calc 11.77, Est GFR (MDRD) Af Amer 15 L, Est GFR (MDRD) Non-Af 13 L, BUN/Creatinine Ratio 9.9 L, Glucose 105, Calcium 8.8 05/09/24 08:02: POC Glucose 90 Micro: Microbiology 05/07/24 11:00 Bone - Right Foot Gram Stain - Final 05/07/24 11:00 Bone - Right Foot Wound Culture - Preliminary Alpha hemolytic organism 05/07/24 11:00 Bone - Right Foot Anaerobic Culture - Preliminary Checking for anaerobes, further studies to follow. Rhythm Strip Rhythm Strip: A-fib Rate: 55 Ectopy: None Physical Exam Const alert, oriented x3 and no apparent distress Constitutional Narrative: Elderly male, class I obesity, mildly fatigued appearing, otherwise sitting up comfortably in bed, conversing normally, no acute distress. Stable. General Appearance: cooperative and comfortable HEENT normocephalic, head/scalp atraumatic, hearing grossly normal bilaterally, nasal mucous membranes and turbinates normal and moist oral mucous membranes Eyes PERRL, EOMs intact bilaterally and conjunctivae normal Neck full ROM Chest inspection of chest normal Resp normal respiratory effort, normal air movement, no use of accessory muscles and clear to auscultation bilaterally Cardio regular rate, regular rhythm, no murmurs and peripheral pulses 2+ throughout GI normal to inspection, nondistended, normoactive bowel sounds, soft to palpation, non-tender and non-distended Back/Spine normal ROM Extremity Extremity Narrative: Status post right first toe amputation with dressing in place. Reviewed wound photos. Neuro moves all extremities Psych mental status grossly normal Assessment & Plan Assessment/Plan (1) Ischemic ulcer of toe of right foot: PLAN: Plan Patient is an 89-year-old male who presented [facility] ED on 05/04/2024 with worsening right foot wound. 1. Peripheral vascular disease s/p right anterior tibial stent with new right ischemic great toe and right foot cellulitis ? Podiatry, vascular surgery and infectious disease following. PT/OT/case management following. Patient with nonhealing right great toe wound with worsening chronic ischemia and concern for right foot cellulitis. S/p right foot partial first ray amputation on 05/07 with podiatry. Noted to have adequate bleeding throughout the case suggestive of good healing potential. Postoperative vascular studies completed and vascular surgery noted no need for any further intervention at this time. Surgical cultures thus far with strep like organisms, per ID if surgical margins are clear of any residual osteo will not need long course of antibiotics on discharge. Will continue IV vancomycin and Unasyn for now. Continue home aspirin and Plavix. Planning for SNF placement on discharge, accepted at [place] and pre-CERT is pending. Hopeful for discharge there in the next 1 to 2 days. 2. ESRD on HD ? Nephrology following. Continue HD Tuesday schedule. Monitor daily BMP. 3. Type 2 diabetes mellitus ? Treating with reduced doses from home of Lantus 15 units at dinner and 5 units with meals plus sliding scale insulin, adjust as needed. 4. Sinus bradycardia ? Known history of sinus bradycardia at baseline. 5. Class I obesity ? BMI 32 on admit. Complicates hospital course, care and prognosis. 6. Chronic normocytic anemia ? Hemoglobin has been stable at baseline around 9 since admission. DVT prophylaxis: Heparin subcu CODE STATUS: Full code, verified Expected disposition: SNF, 1 to 2 days Total clinical time spent by myself addressing the patient's medical issues, reviewing all the data, and collaborating with patient's care team: 35 minutes. Charges/Coding Visit Charges Inpatient E&M: 12492 Subs Hosp L2
[2024-05-09 12:01] LABS: Bedside Glucose 264 mg/dL (74-106)
--- NOTE | 2024-05-09 12:16 | PCM.PROGNOTE ---
Subjective Subjective 89-year-old male seen bedside 2 days postop. Notes some fatigue today. Denies any other constitutional symptoms. No pain to surgical site. No other complaints. Objective Data Objective Data Vital Signs: Vital Signs Temp Pulse Resp BP Pulse Ox O2 Del Method 98.4 F 58 L 16 123/52 H 97 Room Air 05/09/24 08:00 05/09/24 08:00 05/09/24 08:00 05/09/24 08:00 05/09/24 08:00 05/09/24 08:00 Oxygen Delivery Method Room Air Weight: 90.3 kg Body Mass Index (BMI) 31.2 Intake & Output: Intake and Output for Last 24 Hours 05/07/24 05/08/24 05/09/24 23:59 23:59 23:59 Intake Total 472 / 572 1857 / 1857 400 / 400 Output Total 0 / 10 4410 / 4410 Balance 472 / 562 -2553 / -2553 400 / 400 Lab / Micro Data 05/09/24 06:30 05/09/24 06:30 Labs: Laboratory Results - last 24 hr 05/08/24 17:25: POC Glucose 212 H 05/08/24 21:34: POC Glucose 154 H 05/09/24 06:30: WBC 10.1, RBC 3.05 L, Hgb 8.7 L, Hct 29.4 L, MCV 96.4 H, MCH 28.5, MCHC 29.6 L, RDW Std Deviation 53.7 H, RDW Coeff of Frances 15.1 H, Plt Count 206, MPV 11.5, Sodium 135 L, Potassium 4.2, Chloride 102, Carbon Dioxide 27.0, Anion Gap 6, BUN 47 H, Creatinine 4.74 H, Estim Creat Clear Calc 11.77, Est GFR (MDRD) Af Amer 15 L, Est GFR (MDRD) Non-Af 13 L, BUN/Creatinine Ratio 9.9 L, Glucose 105, Calcium 8.8 05/09/24 08:02: POC Glucose 90 05/09/24 11:39: POC Glucose 264 H Micro: Microbiology 05/07/24 11:00 Bone - Right Foot Gram Stain - Final 05/07/24 11:00 Bone - Right Foot Wound Culture - Preliminary Alpha hemolytic organism 05/07/24 11:00 Bone - Right Foot Anaerobic Culture - Preliminary Checking for anaerobes, further studies to follow. Rhythm Strip Rhythm Strip: A-fib Rate: 55 Ectopy: None Physical Exam Narrative Neurovascular status unchanged No strikethrough to dressing the right foot No evidence DVT bilaterally Assessment & Plan Assessment/Plan (1) Other acute osteomyelitis, right ankle and foot: PLAN: Exam performed. Infectious disease on board -intraoperative cultures pending Vascular surgery on board, planning follow-up in 2 weeks will observe wound site if there is any further breakdown will consider repeat intervention Patient will keep dressing clean dry and intact for 1 week at this time to right foot Patient should maintain nonweightbearing status to right foot Patient to follow-up in my office 1 week postop
--- NOTE | 2024-05-09 13:40 | CASEMGMT ---
Social Work Pt's son in law Jey Hunt([phone]), here, asked to speak w/SW. SW met w/Jey in the [facility] waiting room. Jey has been in touch with [facility] already. He is aware pt accepted and precert was started. He inquired when pt is ready for discharge if they will have some notice. SAURAV explained that we can give them a couple of hours notice. 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 Jey spoke about pt's transport to dialysis, he is in touch w/Kehinde Zhao about this. Plan continues to be for pt to go to [facility] when medically ready and we have precert. KIM Carrion
--- NOTE | 2024-05-09 13:48 | PCM.PN.ID ---
Physical Exam Narrative Feeling better, no pain in foot, no fever, no n/v/d Const alert and no apparent distress General Appearance: cooperative Resp normal air movement and clear to auscultation bilaterally Cardio regular rate and regular rhythm GI soft to palpation, non-tender and non-distended Skin Skin Narrative: no new rash, foot wrapped ID ID: Route of nutrition/ use of supplements: [] Nutritional Intake: [] IV Site: [] Lozano Catheter: [] Assessment & Plan Assessment/Plan (1) Other acute osteomyelitis, right ankle and foot: PLAN: R foot gangrene, now s/p partial 1st ray resection by Dr. Ruelas 05/07/24. Cont vanc/unasyn. Surg cx so far with strep-like. If surg margins are clear of any residual osteo, will not need long course of abx at discharge. Will follow (2) Diabetes mellitus with diabetic polyneuropathy: (3) ESRD (end stage renal disease):
[2024-05-09] MEDS: Ampicillin/Sulbactam 3 GM in 0.9% Normal Saline (100mL MB+) 100 ML IV (13:56)
[2024-05-09 16:46] LABS: Bedside Glucose 176 mg/dL (74-106)
[2024-05-09] MEDS: Acetaminophen 325 MG Tablet 650 MG PO (17:11)
[2024-05-09] MEDS: Insulin Glargine-YFGN 100 UNIT/ML Pen 15 UNIT SC (17:12)
[2024-05-10] VITALS (13 sets, daily range): BP systolic 124–268; BP diastolic 49–66; PULSE 45–65; RESP 13–18; TEMP 36.6–36.8; O2SAT 95–97; BMI 31.2; BMI 30.3
[2024-05-10 00:02] LABS: Bedside Glucose 115 mg/dL (74-106)
[2024-05-10 06:10] LABS: Hematocrit 29.9 % (40-54); Hemoglobin 9.2 g/dL (13.0-16.5); Mean Corp Hgb Conc 30.8 g/dL (32-36); Mean Corpuscular Hgb 29.3 pg (27.0-32.0); Mean Corpuscular Volume 95.2 fL (80-94); Mean Platelet Vol. 10.5 fl (6.2-12.0); Platelet Count 205 K/mm3 (150-450); RBC Distribution Width SD 51.8 fl (35.1-43.9); Red Blood Count 3.14 M/mm3 (4.6-6.2); White Blood Count 8.2 K/mm3 (4.4-11.0)
[2024-05-10] MEDS: Menthol/Lanolin/Calamine/Znox 113 GM Tube 1 APPLIC TOPICAL ×2 (06:39→13:52)
[2024-05-10 06:41] LABS: Anion Gap 8 (5-15); BUN 56 mg/dL (7-18); BUN/Creat Ratio 9.4 RATIO (10-20); Calcium,Total 8.8 mg/dL (8.5-10.1); Chloride 102 mmol/L (98-107); Creatinine, Serum 5.98 mg/dL (0.70-1.30); EST Glomerular Filtration Rate 10 mL/min (>60); Est Glom Filt Rate - Afr Amer 12 mL/min (>60); Estimated Creatinine Clearance 9.33 ml/min; Glucose 141 mg/dL (74-106); Potassium 4.2 mmol/L (3.5-5.1); Sodium Level 135 mmol/L (136-145)
[2024-05-10 06:42] LABS: Vancomycin, Random Level 21.6 ug/mL (0.0-15.0)
--- NOTE | 2024-05-10 06:48 | PCM.RX.CS ---
Consult Antibiotic Management Pharmacy has been consulted to manage selected antibiotic: Vancomycin Type of Intervention Type of Consult: Follow-up Suspected Infection Suspected Infection: Osteomyelitis Labs Labs: Sodium 135 mmol/L (136-145) L 05/10/24 06:02 Potassium 4.2 mmol/L (3.5-5.1) 05/10/24 06:02 Chloride 102 mmol/L (98-107) 05/10/24 06:02 Carbon Dioxide 25.0 mmol/L (21.0-32.0) 05/10/24 06:02 Anion Gap 8 (5-15) 05/10/24 06:02 BUN 56 mg/dL (7-18) H 05/10/24 06:02 Creatinine 5.98 mg/dL (0.70-1.30) H 05/10/24 06:02 Est GFR (MDRD) Af Amer 12 mL/min (>60) L 05/10/24 06:02 Est GFR (MDRD) Non-Af 10 mL/min (>60) L 05/10/24 06:02 BUN/Creatinine Ratio 9.4 RATIO (10-20) L 05/10/24 06:02 Glucose 141 mg/dL (74-106) H 05/10/24 06:02 Random Vancomycin 21.6 ug/mL (0.0-15.0) H 05/10/24 06:02 Microbiology Microbiology: Microbiology 05/07/24 11:00 Bone - Right Foot Gram Stain - Final 05/07/24 11:00 Bone - Right Foot Wound Culture - Preliminary Alpha hemolytic organism 05/07/24 11:00 Bone - Right Foot Anaerobic Culture - Preliminary Checking for anaerobes, further studies to follow. Goal Trough Goal Trough: 15-20 mcg/mL Pharmacy Plan for Drug Dosing Pharmacy Plan for Drug Dosing: VANCOMYCIN LEVEL RECEIVED Current Vancomycin Dose: by pre-HD level Number of Doses Received: 2000mg x1, 750mg x1 Vancomycin Level: 21.6 Renal Function: ESRD HD Tue/Thur/Sat Lab/Micro: surgical cx pending strep-like Vancomycin Plan/Comments: HOLD Vancomycin for now Pending Level: Random Vancomycin level @ 0600 05/12/24 prior to next scheduled HD session Pharmacy Service will continue to monitor and adjust dosing as required. Follow-Up Labs Follow-Up Labs: Trough: Vancomycin (05/12/24 @ 06:00 prior to next HD session)
[2024-05-10] MEDS: PureFlow B 3K Dialysis Soln 1 BAG 6 BAG PF (08:22)
[2024-05-10] MEDS: 0.9% Normal Saline 1,000 ML IV.SOLN. 1000 ML OPERA.SITE (08:22)
--- NOTE | 2024-05-10 08:55 | CASEMGMT ---
Discharge Planning [id number] sent via [facility] to [facility]. Alanna Gaston DC Planning Asst.
--- NOTE | 2024-05-10 10:02 | PN.ID_ITS ---
Physical Exam Narrative Sleeping on HD this AM, no fever Const no apparent distress Resp normal air movement and clear to auscultation bilaterally Cardio regular rate and regular rhythm GI soft to palpation, non-tender and non-distended Skin Skin Narrative: foot wrapped ID ID: Route of nutrition/ use of supplements: [] Nutritional Intake: [] IV Site: [] Lozano Catheter: [] Assessment & Plan Assessment/Plan (1) Other acute osteomyelitis, right ankle and foot: PLAN: R foot gangrene, now s/p partial 1st ray resection by Dr. Ruelas 1 07/08/23. On vanc/unasyn. Surg cx so far with strep-like. If surg margins are clear of any residual osteo, ok for 10 days po doxy and augmentin at discharge. Will follow prn, d/w Dr. Shields (2) Diabetes mellitus with diabetic polyneuropathy: (3) ESRD (end stage renal disease):
--- NOTE | 2024-05-10 11:04 | PCM.PN.REN ---
Subjective Subjective Seen on dialysis today Objective Data Objective Data Vital Signs: Vital Signs Temp Pulse Resp BP Pulse Ox O2 Del Method 98.3 F 58 L 14 146/52 H 96 Room Air 05/10/24 07:35 05/10/24 10:54 05/10/24 10:54 05/10/24 10:54 05/10/24 07:35 05/10/24 10:54 Oxygen Delivery Method Room Air Weight: 90.3 kg Body Mass Index (BMI) 31.2 Intake & Output: Intake and Output for Last 24 Hours 05/08/24 05/09/24 05/10/24 23:59 23:59 23:59 Intake Total 1857 / 1857 512 / 712 450 / 450 Output Total 4410 / 4410 Balance -2553 / -2553 512 / 712 450 / 450 Lab / Micro Data 05/10/24 06:02 05/10/24 06:02 Labs: Laboratory Results - last 24 hr 05/09/24 11:39: POC Glucose 264 H 05/09/24 16:25: POC Glucose 176 H 05/09/24 21:58: POC Glucose 115 H 05/10/24 06:02: WBC 8.2, RBC 3.14 L, Hgb 9.2 L, Hct 29.9 L, MCV 95.2 H, MCH 29.3, MCHC 30.8 L, RDW Std Deviation 51.8 H, RDW Coeff of Frances 15.0 H, Plt Count 205, MPV 10.5, Sodium 135 L, Potassium 4.2, Chloride 102, Carbon Dioxide 25.0, Anion Gap 8, BUN 56 H, Creatinine 5.98 H, Estim Creat Clear Calc 9.33, Est GFR (MDRD) Af Amer 12 L, Est GFR (MDRD) Non-Af 10 L, BUN/Creatinine Ratio 9.4 L, Glucose 141 H, Calcium 8.8, Random Vancomycin 21.6 H Micro: Microbiology 05/07/24 11:00 Bone - Right Foot Gram Stain - Final 05/07/24 11:00 Bone - Right Foot Wound Culture - Preliminary Alpha hemolytic organism 05/07/24 11:00 Bone - Right Foot Anaerobic Culture - Final No anaerobic bacteria isolated. Rhythm Strip Rhythm Strip: A-fib Rate: 55 Ectopy: None Physical Exam Narrative Currently resting comfortably S1-S2 regular Breath sounds equal anteriorly Left forearm AV fistula Abdomen is nontender No significant peripheral edema Assessment & Plan Assessment/Plan (1) ESRD (end stage renal disease): PLAN: - End-stage renal disease on hemodialysis Tuesday at [facility]. Seen on dialysis today -Anemia of chronic disease; receives long-acting CRYSTAL and iron at kidney center. Will monitor hemoglobin trends -Osteomyelitis right foot status post partial first ray resection 05/07. On antibiotics per ID
[2024-05-10 11:44] LABS: Bedside Glucose 165 mg/dL (74-106)
[2024-05-10] MEDS: Insulin Lispro 100 UNIT/ML INSULN.PEN SC ×4 (12:07→16:54)
--- NOTE | 2024-05-10 12:10 | CASEMGMT ---
Social Work- SW received a call from pt son-in-law, Jey, to provide updates. SW updated that precert remains pending & SW will continue to follow and update as soon as new information is available. SW updated that physician feels pt is medically ready and can discharge when precet is obtained. Plan: LOLA; pend precert TERRI Keating
--- NOTE | 2024-05-10 13:10 | PN.HOSP_ITS ---
Reason for Visit Reason for Visit: Diagnoses Type 2 diabetes mellitus with diabetic polyneuropathy (05/04/24) Atherosclerosis of [place] arteries of right leg with ulceration of other part of foot (05/04/24) Other disorder of circulatory system (05/04/24) Non-pressure chronic ulcer of other part of right foot with necrosis of bone (05/04/24) Non-pressure chronic ulcer of other part of right foot with unspecified severity (05/04/24) Other acute osteomyelitis, right ankle and foot (05/04/24) End stage renal disease (05/04/24) Subjective Subjective Saw patient at bedside this morning. Was having hemodialysis done when I saw him. Feeling well, denied any new concerns this morning. Objective Data Objective Data Vital Signs: Vital Signs Temp Pulse Resp BP Pulse Ox O2 Del Method 97.9 F 64 13 137/66 H 97 Room Air 05/10/24 12:02 05/10/24 12:02 05/10/24 12:02 05/10/24 12:02 05/10/24 12:02 05/10/24 12:02 Oxygen Delivery Method Room Air Weight: 87.6 kg Body Mass Index (BMI) 30.3 Intake & Output: Intake and Output for Last 24 Hours 05/08/24 05/09/24 05/10/24 23:59 23:59 23:59 Intake Total 1857 / 1857 512 / 712 450 / 450 Output Total 4410 / 4410 2900 / 2900 Balance -2553 / -2553 512 / 712 -2450 / -2450 Lab / Micro Data 05/10/24 06:02 05/10/24 06:02 Labs: Laboratory Results - last 24 hr 05/09/24 16:25: POC Glucose 176 H 05/09/24 21:58: POC Glucose 115 H 05/10/24 06:02: WBC 8.2, RBC 3.14 L, Hgb 9.2 L, Hct 29.9 L, MCV 95.2 H, MCH 29.3, MCHC 30.8 L, RDW Std Deviation 51.8 H, RDW Coeff of Frances 15.0 H, Plt Count 205, MPV 10.5, Sodium 135 L, Potassium 4.2, Chloride 102, Carbon Dioxide 25.0, Anion Gap 8, BUN 56 H, Creatinine 5.98 H, Estim Creat Clear Calc 9.33, Est GFR (MDRD) Af Amer 12 L, Est GFR (MDRD) Non-Af 10 L, BUN/Creatinine Ratio 9.4 L, G lucose 141 H, Calcium 8.8, Random Vancomycin 21.6 H 05/10/24 11:27: POC Glucose 165 H Micro: Microbiology 05/07/24 11:00 Bone - Right Foot Gram Stain - Final 05/07/24 11:00 Bone - Right Foot Wound Culture - Preliminary Alpha hemolytic organism 05/07/24 11:00 Bone - Right Foot Anaerobic Culture - Final No anaerobic bacteria isolated. Rhythm Strip Rhythm Strip: A-fib Rate: 55 Ectopy: None Physical Exam Const alert, oriented x3 and no apparent distress Constitutional Narrative: Elderly male, class I obesity, mildly fatigued appearing, otherwise sitting up comfortably in bed, conversing normally, no acute distress. Stable. General Appearance: cooperative and comfortable HEENT normocephalic, head/scalp atraumatic, hearing grossly normal bilaterally, nasal mucous membranes and turbinates normal and moist oral mucous membranes Eyes PERRL, EOMs intact bilaterally and conjunctivae normal Neck full ROM Chest inspection of chest normal Resp normal respiratory effort, normal air movement, no use of accessory muscles and clear to auscultation bilaterally Cardio regular rate, regular rhythm, no murmurs and peripheral pulses 2+ throughout GI normal to inspection, nondistended, normoactive bowel sounds, soft to palpation, non-tender and non-distended Back/Spine normal ROM Extremity Extremity Narrative: Status post right first toe amputation with dressing in place. Reviewed wound photos. Neuro moves all extremities Psych mental status grossly normal Assessment & Plan Assessment/Plan (1) Ischemic ulcer of toe of right foot: PLAN: Plan Patient is an 89-year-old male who presented [facility] ED on 05/04/2024 with worsening right foot wound. 1. Peripheral vascular disease s/p right anterior tibial stent with new right ischemic great toe and right foot cellulitis ? Podiatry, vascular surgery and infectious disease following. PT/OT/case management following. Patient with nonhealing right great toe wound with worsening chronic ischemia and concern for right foot cellulitis. S/p right foot partial first ray amputation on 05/07 with podiatry. Noted to have adequate bleeding throughout the case suggestive of good healing potential. Postoperative vascular studies completed and vascular surgery noted no need for any further intervention at this time. Surgical cultures thus far with strep like organisms, per ID if surgical margins are clear of any residual osteo will plan for 10-day course of p.o. antibiotics on discharge. Will continue IV vancomycin and Unasyn for now. Continue home aspirin and Plavix. Medically stable for discharge on 05/10. Awaiting SNF placement. 2. ESRD on HD ? Nephrology following. Continue HD Tuesday schedule. 3. Type 2 diabetes mellitus ? Treating with reduced doses from home of Lantus 15 units at dinner and 5 units with meals plus sliding scale insulin, adjust as needed. 4. Sinus bradycardia ? Known history of sinus bradycardia at baseline. 5. Class I obesity ? BMI 32 on admit. Complicates hospital course, care and prognosis. 6. Chronic normocytic anemia ? Hemoglobin has been stable at baseline around 9 since admission. DVT prophylaxis: Heparin subcu CODE STATUS: Full code, verified Expected disposition: SNF, medically ready for discharge on 05/10, awaiting placement Total clinical time spent by myself addressing the patient's medical issues, reviewing all the data, and collaborating with patient's care team: 35 minutes. Charges/Coding Visit Charges Inpatient E&M: 07323 Subs Hosp L2
[2024-05-10] MEDS: Ampicillin/Sulbactam 3 GM in 0.9% Normal Saline (100mL MB+) 100 ML IV (13:51)
--- NOTE | 2024-05-10 15:28 | CASEMGMT ---
Discharge Planning [facility] has obtained auth to admit. SW and physician updated. Alanna Gaston DC Planning Asst.
--- NOTE | 2024-05-10 15:36 | TREXTCAR_ITS ---
Diet Diet Order/Speech Therapy: 05/07/24 15:50 Diet: Renal - General Diet Comments: okay for sips and chips Routine Orders/Code Status Code Status: Full Code DC O2, CPAP, BIPAP needs Home O2 Discharge instructions: No Wound(s) RIGHT FOOT: Wound Type: neuropathic/ischemic wound Dressing Change: betadine/Adaptic Therapies Weight Bearing: Non weight bearing (To right foot) Physical Therapy: Eval and Treat Occupational Therapy: Eval and Treat Problem/Diagnosis (1) Ischemic ulcer of toe of right foot: Status: Acute Code(s): L97.519 - Non-pressure chronic ulcer of other part of right foot with unspecified severity Plan Patient is an 89-year-old male who presented [facility] ED on 05/04/2024 with worsening right foot wound. Hospital course as noted below. Patient discharged to SNF in stable condition on 05/10. 1. Peripheral vascular disease s/p right anterior tibial stent with new right ischemic great toe and right foot cellulitis ? Podiatry, vascular surgery and infectious disease followed. PT/OT/case management followed. Patient with nonhealing right great toe wound with worsening chronic ischemia and concern for right foot cellulitis. S/p right foot partial first ray amputation on 05/07 with podiatry. Noted to have adequate bleeding throughout the case suggestive of good healing potential. Postoperative vascular studies completed and vascular surgery noted no need for any further intervention at this time. Surgical cultures thus far with strep like organisms and surgical margins clear of residual osteo. Treated with IV vancomycin and Unasyn while inpatient, discharged on 10-day course of p.o. doxycycline and Augmentin. Continue home aspirin and Plavix. Discharged to SNF in stable condition on 05/10. 2. ESRD on HD ? Nephrology followed. Continue HD Tuesday schedule. 3. Type 2 diabetes mellitus ? Treated with reduced doses from home of Lantus 15 units at dinner and 5 units with meals plus sliding scale insulin while inpatient. Okay to resume home regimen on discharge. 4. Sinus bradycardia ? Known history of sinus bradycardia at baseline. 5. Class I obesity ? BMI 32 on admit. Complicated hospital course, care and prognosis. 6. Chronic normocytic anemia ? Hemoglobin has been stable at baseline around 9 since admission. Total clinical time spent by myself addressing the patient's medical issues, reviewing all the data, and collaborating with patient's care team: 35 minutes. Allergies/Procedures Done in Hospital Allergies pioglitazone (From Actos) Allergy (Verified 05/04/24 09:46) fatigue simvastatin (From Zocor) Allergy (Verified 05/04/24 09:46) myalgia sitagliptin (From Januvia) Allergy (Verified 05/04/24 09:46) unknown Procedures: Dialysis, EKG and - (Right partial first ray amputation with advancement flap for wound coverage, LE arterial study, foot x-ray x 2, RAN) Type of Care/Length of Stay Estimated LOS: Convalescent Care Less Than 30 days Type of Care Needed: Skilled Rehab Potential: Fair Prognosis: Fair Additional Orders/Day of Discharge H&P will serve as current which was dated: 05/04/24 Day of Discharge: 05/10/24 Dietary and Speech Recommendations Dietitian Recommendations/Changes: Renal, 2000 calorie controlled/consistent carbohydrate diet. Dustin BID with breakfast and dinner to promote wound healing. Discharge Plan Admission Admit Date/Time: 05/04/24 12:08 Primary Reason for Your Visit: Right foot wound Attending Provider: Deni Shields Primary Care Provider: Jean Yan Consulting Providers: Jaswant Montgomery; Randal Shore; Bee Hernandez; Des Ruelas; Earl White Discharge Orders/Prescriptions Prescriptions: New doxycycline hyclate 100 mg capsule 100 mg PO BID Qty: 20 0RF amoxicillin-pot clavulanate 250-125 mg tablet 1 tab PO BID Qty: 20 0RF Continued cyanocobalamin (vitamin B-12) [Vitamin B-12] 1,000 mcg tablet 1,000 mcg PO .SUMOWEDFR cholecalciferol (vitamin D3) 1,000 UNIT tablet 5,000 unit PO DAILY Qty: 30 0RF torsemide 100 mg tablet 100 mg PO MOWEFR Patient Comments: on non-dialysis days acetaminophen 325 mg Tablet 650 mg PO Q6H PRN PRN (Reason: Pain 1-10 Or Fever >100.7) Qty: 0 0RF clopidogrel 75 mg Tablet 75 mg PO DAILY 30 Days Qty: 30 2RF insulin lispro [Humalog KwikPen Insulin] 100 unit/mL Insulin Pen 10 unit subcut TIDAC Qty: 0 0RF Rx Instructions: Hold if glucose less than 130 mg/dl sennosides-docusate sodium [Stimulant Laxative Plus] 8.6-50 mg Tablet 2 tab PO BID PRN PRN (Reason: Constipation) Qty: 0 0RF insulin glargine 100 unit/mL (3 mL) insulin pen 20 unit SC DINNER 30 Days Qty: 0 0RF Rx Instructions: Hold if glucose less than 130 mg/dl insulin lispro [Humalog KwikPen Insulin] 100 unit/mL Insulin Pen See Protocol subcut [facility] Protocol: 3. Sliding Scale Insulin Med Dosing Condition: 150-189 mg/dl = 1 unit Condition: 190-229 mg/dl = 2 units Condition: 230-269 mg/dl = 3 units Condition: 270-309 mg/dl = 4 units Condition: 310-349 mg/dl = 5 units Condition: 350-399 mg/dl = 6 units Condition: 400-449 mg/dl = 7 units Condition: Greater than 449 call physician Protocol Text: Suggested for: - Patients on Total Daily Insulin Dose of 37-55 units - Obese, infected, or steroid patients MEDIUM DOSING ALGORITHIM Rx Instructions: 150-189 1 unit,190-229 2 unit, 230-269 3 unit, 270-309 4 unit, 310-349 5 unit, 350-399 6 unit, 400-449 7 unit, 450-500 call physicion aspirin [Adult Aspirin Regimen] 81 mg tablet,delayed release (DR/EC) 81 mg PO DAILY Discontinued miconazole nitrate 2 % Cream 1 applic topical BID 14 Days Qty: 0 0RF Protocol: *Topical Application Instructions APPLICATION INSTRUCTIONS: right thigh, ring worm Rx Instructions: On right upper thigh groin site Referrals / Follow Up: Jean Yan MD [Primary Care Provider] - Des Ruelas DPM [Med Staff - Active Staff] - Disposition Disposition (needs filled in before D/C Order can be placed): [facility] Facility
--- NOTE | 2024-05-10 15:43 | PCM.DC.SUM ---
Providers Date of Admission: 05/04/24 Date of Discharge: 05/10/24 Primary Care Physician: Dr. Jean Yan MD Consultations 05/04/24 13:21 Consult: Nephrology Routine Consulting Provider: Bee Hernandez Reason for Consult: dialysis EMERGENT Consult: No Notified: Yes Date Notified: 05/04/24 Time Notified: 12:12 Method of Notification: Answering Service Consult: Onc/Wound/research director Routine Comment: Consult: Podiatry Routine Consulting Provider: Des Ruelas Reason for Consult: Ischemic toe EMERGENT Consult: No Notified: Yes Date Notified: 05/04/24 Time Notified: 12:13 Method of Notification: ED Physician Initiated Consult: Vascular Surgery Routine Consulting Provider: Earl White Reason for Consult: Ischemic toe EMERGENT Consult: No Notified: Yes Date Notified: 05/04/24 Time Notified: 12:14 Method of Notification: ED Physician Initiated 05/06/24 07:16 Consult: Infectious Disease Routine Consulting Provider: Randal Shore Reason for Consult: DM R foot infection w/ ischemic toe EMERGENT Consult: No Notified: Yes Date Notified: 05/06/24 Time Notified: 07:16 Method of Notification: Text Reason For Visit: ISCHEMIC TOE Diagnosis Discharge Diagnosis (1) Ischemic ulcer of toe of right foot: Status: Acute Code(s): L97.519 - Non-pressure chronic ulcer of other part of right foot with unspecified severity Medications at Discharge Home Medications cholecalciferol (vitamin D3) 25 mcg (1,000 unit) tablet 5,000 unit PO DAILY supplement #30 tabs 05/02/20 aspirin 81 mg tablet,delayed release (Adult Aspirin Regimen) 81 mg PO DAILY heart health 07/01/20 cyanocobalamin (vitamin B-12) 1,000 mcg tablet (Vitamin B-12) 1,000 mcg PO .SUMOWEDFR supplement 10/07/23 torsemide 100 mg tablet 100 mg PO MOWEFR water pill 04/14/24 acetaminophen 325 mg tablet 650 mg (2 x 325 mg) PO Q6H PRN PRN Pain 1-10 Or Fever >100.7 #0 tabs 04/24/24 clopidogrel 75 mg tablet 75 mg PO DAILY 30 days #30 tabs 04/24/24 insulin glargine 100 unit/mL (3 mL) subcutaneous pen 20 unit (0.2 mL) subcut DINNER diabetes 30 days #0 mL 04/24/24 insulin lispro 100 unit/mL subcutaneous pen (Humalog KwikPen (U-100) Insulin) 10 unit (0.1 mL) subcut TIDAC #0 mL 04/24/24 sennosides 8.6 mg-docusate sodium 50 mg tablet (Stimulant Laxative Plus) 2 tab PO BID PRN PRN Constipation #0 tabs 04/24/24 insulin lispro 100 unit/mL subcutaneous pen (Humalog KwikPen (U-100) Insulin) See Protocol subcut ACHS dm 05/04/24 amoxicillin 250 mg-potassium clavulanate 125 mg tablet 1 tab PO BID #20 tabs 05/10/24 doxycycline hyclate 100 mg capsule 100 mg PO BID #20 caps 05/10/24 Hospital Course Operations - (Right partial first ray amputation with advancement flap for wound coverage) Procedures Dialysis, EKG and - (Foot x-ray x 2, LE arterial study, RAN) Summary of Care Provided Minutes Spent on Discharge: 35 Hospital Course: Patient is an 89-year-old male who presented [facility] ED on 05/04/2024 with worsening right foot wound. Hospital course as noted below. Patient discharged to SNF in stable condition on 05/10. 1. Peripheral vascular disease s/p right anterior tibial stent with new right ischemic great toe and right foot cellulitis ? Podiatry, vascular surgery and infectious disease followed. PT/OT/case management followed. Patient with nonhealing right great toe wound with worsening chronic ischemia and concern for right foot cellulitis. S/p right foot partial first ray amputation on 05/07 with podiatry. Noted to have adequate bleeding throughout the case suggestive of good healing potential. Postoperative vascular studies completed and vascular surgery noted no need for any further intervention at this time. Surgical cultures thus far with strep like organisms and surgical margins clear of residual osteo. Treated with IV vancomycin and Unasyn while inpatient, discharged on 10-day course of p.o. doxycycline and Augmentin. Continue home aspirin and Plavix. Discharged to SNF in stable condition on 05/10. 2. ESRD on HD ? Nephrology followed. Continue HD Tuesday schedule. 3. Type 2 diabetes mellitus ? Treated with reduced doses from home of Lantus 15 units at dinner and 5 units with meals plus sliding scale insulin while inpatient. Okay to resume home regimen on discharge. 4. Sinus bradycardia ? Known history of sinus bradycardia at baseline. 5. Class I obesity ? BMI 32 on admit. Complicated hospital course, care and prognosis. 6. Chronic normocytic anemia ? Hemoglobin has been stable at baseline around 9 since admission. Total clinical time spent by myself addressing the patient's medical issues, reviewing all the data, and collaborating with patient's care team: 35 minutes. Physical Exam Const alert, oriented x3 and no apparent distress Constitutional Narrative: Elderly male, class I obesity, mildly fatigued appearing, otherwise sitting up comfortably in bed, conversing normally, no acute distress. Stable. General Appearance: cooperative and comfortable HEENT normocephalic, head/scalp atraumatic, hearing grossly normal bilaterally, nasal mucous membranes and turbinates normal and moist oral mucous membranes Eyes PERRL, EOMs intact bilaterally and conjunctivae normal Neck full ROM Chest inspection of chest normal Resp normal respiratory effort, normal air movement, no use of accessory muscles and clear to auscultation bilaterally Cardio regular rate, regular rhythm, no murmurs and peripheral pulses 2+ throughout GI normal to inspection, nondistended, normoactive bowel sounds, soft to palpation, non-tender and non-distended Back/Spine normal ROM Extremity Extremity Narrative: Status post right first toe amputation with dressing in place. Reviewed wound photos. Neuro moves all extremities Psych mental status grossly normal Weight / BMI Weight Weight: 87.6 kg Body Mass Index (BMI) 30.3 ABG / Lab / Microbiology Data 05/10/24 06:02 05/10/24 06:02 Laboratory: Laboratory Results - last 24 hr 05/09/24 16:25: POC Glucose 176 H 05/09/24 21:58: POC Glucose 115 H 05/10/24 06:02: WBC 8.2, RBC 3.14 L, Hgb 9.2 L, Hct 29.9 L, MCV 95.2 H, MCH 29.3, MCHC 30.8 L, RDW Std Deviation 51.8 H, RDW Coeff of Frances 15.0 H, Plt Count 205, MPV 10.5, Sodium 135 L, Potassium 4.2, Chloride 102, Carbon Dioxide 25.0, Anion Gap 8, BUN 56 H, Creatinine 5.98 H, Estim Creat Clear Calc 9.33, Est GFR (MDRD) Af Amer 12 L, Est GFR (MDRD) Non-Af 10 L, BUN/Creatinine Ratio 9.4 L, Glucose 141 H, Calcium 8.8, Random Vancomycin 21.6 H 05/10/24 11:27: POC Glucose 165 H Microbiology: Microbiology 05/07/24 11:00 Bone - Right Foot Gram Stain - Final 05/07/24 11:00 Bone - Right Foot Wound Culture - Preliminary Alpha hemolytic organism 05/07/24 11:00 Bone - Right Foot Anaerobic Culture - Final No anaerobic bacteria isolated. D/C Instructions DC O2, CPAP, BIPAP Needs Home O2 Discharge instructions: No Meaningful Use Info Meaningful Use Meaningful Use Diagnoses (Choose all that apply): None applicable Ischemic Stroke Statin Dosing Therapy Reference: STATIN DOSE THERAPY REFERENCE: * Patients > 75 years receive moderate or high dose statin therapy. * Patients 75 years or YOUNGER should receive HIGH intensity statin dose unless contraindicated. You will be required to document reason for non-treatment if statin daily dose does not meet guidelines. HIGH DOSE STATIN THERAPY DAILY Atorvastatin > than or = to 40 mg Rosuvastatin > than or = to 20 mg Amlodipine + Atorvastatin > than or = to 2.5/40 mg Ezetimibe + Simvastatin 10/80 mg Simvastatin 80mg Discharge Plan Admission Admit Date/Time: 05/04/24 12:08 Primary Reason for Your Visit: Right foot wound Attending Provider: Deni Shields Primary Care Provider: Jean Yan Consulting Providers: Jaswant Montgomery; Randal Shore; Bee Hernandez; Des Ruelas; Earl White Discharge Orders/Prescriptions Prescriptions: New doxycycline hyclate 100 mg capsule 100 mg PO BID Qty: 20 0RF amoxicillin-pot clavulanate 250-125 mg tablet 1 tab PO BID Qty: 20 0RF Continued cyanocobalamin (vitamin B-12) [Vitamin B-12] 1,000 mcg tablet 1,000 mcg PO .SUMOWEDFR cholecalciferol (vitamin D3) 1,000 UNIT tablet 5,000 unit PO DAILY Qty: 30 0RF torsemide 100 mg tablet 100 mg PO MOWEFR Patient Comments: on non-dialysis days acetaminophen 325 mg Tablet 650 mg PO Q6H PRN PRN (Reason: Pain 1-10 Or Fever >100.7) Qty: 0 0RF clopidogrel 75 mg Tablet 75 mg PO DAILY 30 Days Qty: 30 2RF insulin lispro [Humalog KwikPen Insulin] 100 unit/mL Insulin Pen 10 unit subcut TIDAC Qty: 0 0RF Rx Instructions: Hold if glucose less than 130 mg/dl sennosides-docusate sodium [Stimulant Laxative Plus] 8.6-50 mg Tablet 2 tab PO BID PRN PRN (Reason: Constipation) Qty: 0 0RF insulin glargine 100 unit/mL (3 mL) insulin pen 20 unit SC DINNER 30 Days Qty: 0 0RF Rx Instructions: Hold if glucose less than 130 mg/dl insulin lispro [Humalog KwikPen Insulin] 100 unit/mL Insulin Pen See Protocol subcut [facility] Protocol: 3. Sliding Scale Insulin Med Dosing Condition: 150-189 mg/dl = 1 unit Condition: 190-229 mg/dl = 2 units Condition: 230-269 mg/dl = 3 units Condition: 270-309 mg/dl = 4 units Condition: 310-349 mg/dl = 5 units Condition: 350-399 mg/dl = 6 units Condition: 400-449 mg/dl = 7 units Condition: Greater than 449 call physician Protocol Text: Suggested for: - Patients on Total Daily Insulin Dose of 37-55 units - Obese, infected, or steroid patients MEDIUM DOSING ALGORITHIM Rx Instructions: 150-189 1 unit,190-229 2 unit, 230-269 3 unit, 270-309 4 unit, 310-349 5 unit, 350-399 6 unit, 400-449 7 unit, 450-500 call physicion aspirin [Adult Aspirin Regimen] 81 mg tablet,delayed release (DR/EC) 81 mg PO DAILY Discontinued miconazole nitrate 2 % Cream 1 applic topical BID 14 Days Qty: 0 0RF Protocol: *Topical Application Instructions APPLICATION INSTRUCTIONS: right thigh, ring worm Rx Instructions: On right upper thigh groin site Referrals / Follow Up: Jean Yan MD [Primary Care Provider] - Des Ruelas DPM [Med Staff - Active Staff] - Disposition Disposition (needs filled in before D/C Order can be placed): [facility] Facility Charges/Coding Visit Charges Inpatient E&M: 50283 Disch Hosp >30min
[2024-05-10] MEDS: Insulin Glargine-YFGN 100 UNIT/ML Pen 15 UNIT SC (16:54)
--- NOTE | 2024-05-10 16:59 | CASEMGMT ---
Addendum entered by Jacqui Arora 05/10/24 17:21: Social Work- SW called Jey to advise of a 7pm transport time. TERRI Keating Original Note: Social Work Precert has been obtained.? Physician updated and pt is ready for discharge today.? [facility] convalescent form completed in [facility]. [facility] and bedside nurse notified of discharge time.Pt son-in-law advised of pt discharge. Pt son-in-law had hoped that pt would stay for dialysis tomorrow; SAURAV reiterated from prior conversation today that pt is medically ready and can be discharged per physician. SAURAV shared that [facility] was contacted and has pt chair time available on Tuesday and [facility] was contacted and reports that they are able to provide transport. SAURAV shared that [facility] will call with transport time once scheduled. Disposition:[facility], skilled level of care under convalescent stay. TERRI Keating
[2024-05-10 17:16] LABS: Bedside Glucose 188 mg/dL (74-106)
--- NOTE | 2024-05-10 17:26 | CASEMGMT ---
Discharge Planning Discharge orders, signed med list, and transport time sent to [facility] via [facility]. Physicians will transport patient by wheelchair at 7p. Nursing and SW updated. Alanna Gaston DC Planning Asst.
== END 2024-05-10 20:00 | disposition skilled nursing facility (03) | DRG 617 ==
LOC: ED 12:41 → MS3 12:48
PROVIDERS: Podiatrist; Admitting Provider Family Medicine; Emergency Provider Emergency Medicine; PCP Family Medicine; Visit Provider Hospitalist
PROC: 0Y6M0Z9 Detachment at Right Foot, Partial 1st Ray, Open Approach (ICD-10-PCS; principal; 2024-05-07 10:45)
DX: E11.621 Type 2 diabetes mellitus with foot ulcer (principal); I13.2 Hypertensive heart and chronic kidney disease with heart failure and with stage 5 chronic kidney disease, or end stage renal disease; I96 Gangrene, not elsewhere classified; E11.52 Type 2 diabetes mellitus with diabetic peripheral angiopathy with gangrene; I50.32 Chronic diastolic (congestive) heart failure; M86.171 Other acute osteomyelitis, right ankle and foot; L03.115 Cellulitis of right lower limb; N18.6 End stage renal disease; D63.1 Anemia in chronic kidney disease; D56.0 Alpha thalassemia; Z68.32 Body mass index [BMI] 32.0-32.9, adult; L97.514 Non-pressure chronic ulcer of other part of right foot with necrosis of bone; E11.42 Type 2 diabetes mellitus with diabetic polyneuropathy; E11.22 Type 2 diabetes mellitus with diabetic chronic kidney disease; Z79.4 Long term (current) use of insulin; E78.5 Hyperlipidemia, unspecified; Z99.2 Dependence on renal dialysis; R00.1 Bradycardia, unspecified; E11.69 Type 2 diabetes mellitus with other specified complication; I44.7 Left bundle-branch block, unspecified; Z79.02 Long term (current) use of antithrombotics/antiplatelets; Z79.82 Long term (current) use of aspirin; E66.811 Obesity, class 1; Z79.85 Long-term (current) use of injectable non-insulin antidiabetic drugs; B95.61 Methicillin susceptible Staphylococcus aureus infection as the cause of diseases classified elsewhere; B96.6 Bacteroides fragilis [B. fragilis] as the cause of diseases classified elsewhere; B96.89 Other specified bacterial agents as the cause of diseases classified elsewhere
CPT/HCPCS: 36415; 73620; 73630; 80048; 80202; 82962; 85025; 85027; 85652; 86140; 87070; 87075; 87077; 87186; 87205; 88305; 88311; 90937; 93005; 93922; 93926; 94668; 97162; 97166; 97530; 97802; 99285; A4216; G0257; J0295; J2405

== ENCOUNTER 2024-05-17 14:30 | Outpatient (RCR) | payer MEDICARE, SELFPAY ==
[2024-05-17 14:59] VITALS: BP 125/44; PULSE 57; RESP 18; TEMP 36; BMI 31.9
--- NOTE | 2024-05-17 17:19 | PCM.WC.HP ---
History of Present Illness Date of Service: 05/17/24 Chief Complaint: R 1st digit amputation site, R 2nd toe ulceration History of Wound: He was admitted to [facility] from 04/14-04/24 with infected R diabetic foot wound at the base of his R first metatarsal. He was treated with IV antibiotics. Podiatry performed bedside debridement. He had arterial study showing noncompressible vessels and monophasic waveforms throughout. On 04/18/24, Dr. White performed angiogram showing: PT occluded at the medial malleolus and stenosed through the distal third but could not successfully cross the lesion to intervene; peroneal at that time was noted to be widely patent; AT was patent large caliber vessel with a stenosis of greater than 75% just beyond its origin with return to normal caliber and continuous flow to the foot where it gave rise to the dorsalis pedal artery and the predominant perfusion to the pedal arch. He performed successful AT angioplasty. He then re-presented to [facility] ER with persistence of the wound at the plantar base of the R 1st MT, but now also with gangrene/ischemic tissue damage to the entirety of the R 1st toe. He was admitted for further management. Repeat arterial study today which showed: Patent AT intervention; now occluded peroneal; RAN not obtainable due to noncompressible vessels, improved biphasic waveforms through the RLE. The patent AT provided dominant inflow to the pedal arch and his overall inflow appeared improved with now biphasic signals so it was felt to be reasonable to proceed with amputation 1st digit amputation by podiatry. Dr. Ruelas performed R 1st digit amputation 05/07/24 and adequate bleeding was noted at that time. Most of the incision site was closed with a flap, but a small portion of the distal aspect was not able to be closed. He has not yet followed up with podiatry since his surgery on 05/07. He resides at [facility] currently. He is on dialysis , , Sat at [facility]. He is diabetic, last A1c 8.8. 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 Pre-op testing Loose, teeth Wears glasses Cancer Dialysis patient Kidney disease Non-smoker Edema Syncope Chronic diastolic (congestive) heart failure (04/18/20) Paroxysmal atrial fibrillation Sinus bradycardia Type 2 diabetes mellitus Hyperkalemia Swelling of both lower extremities HLD (hyperlipidemia) Left bundle-branch block 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 Abnormal electrocardiogram Home Medications ?Medication ?Instructions ?Recorded ?Last Taken ?Type cholecalciferol (vitamin D3) 25 5,000 unit PO DAILY supplement #30 05/02/20 11/06/21 Rx mcg (1,000 unit) tablet tabs aspirin 81 mg tablet,delayed 81 mg PO DAILY heart health 07/01/20 11/06/21 History release (Adult Aspirin Regimen) cyanocobalamin (vitamin B-12) 1,000 mcg PO .SUMOWEDFR supplement 10/07/23 Unknown History 1,000 mcg tablet (Vitamin B-12) torsemide 100 mg tablet 100 mg PO MOWEFR water pill 04/14/24 05/03/24 History acetaminophen 325 mg tablet 650 mg (2 x 325 mg) PO Q6H PRN PRN 04/24/24 Unknown Rx Pain 1-10 Or Fever >100.7 #0 tabs clopidogrel 75 mg tablet 75 mg PO DAILY 30 days #30 tabs 04/24/24 Unknown Rx insulin glargine 100 unit/mL (3 20 unit (0.2 mL) subcut DINNER 04/24/24 Unknown Rx mL) subcutaneous pen diabetes 30 days #0 mL insulin lispro 100 unit/mL 10 unit (0.1 mL) subcut TIDAC #0 mL 04/24/24 Unknown Rx subcutaneous pen (Humalog KwikPen (U-100) Insulin) sennosides 8.6 mg-docusate sodium 2 tab PO BID PRN PRN Constipation 04/24/24 Unknown Rx 50 mg tablet (Stimulant Laxative #0 tabs Plus) insulin lispro 100 unit/mL See Protocol subcut ACHS dm 05/04/24 Unknown History subcutaneous pen (Humalog KwikPen (U-100) Insulin) amoxicillin 250 mg-potassium 1 tab PO BID #20 tabs 05/10/24 Unknown Rx clavulanate 125 mg tablet doxycycline hyclate 100 mg capsule 100 mg PO BID #20 caps 05/10/24 Unknown Rx Allergy/AdvReac Type Severity Reaction Status Date / Time pioglitazone (From Actos) Allergy fatigue Verified 05/17/24 15:23 simvastatin (From Zocor) Allergy myalgia Verified 05/17/24 15:23 sitagliptin (From Januvia) Allergy unknown Verified 05/17/24 15:23 Family History Mother Hypertension Father Diabetes COPD (chronic obstructive pulmonary disease) Surgical History History of cataract extraction History of ligation of vein History of arteriovenostomy for renal dialysis History of inguinal hernia repair History of appendectomy Social History Smoking Status: Never smoker alcohol intake: never substance use type: does not use caffeine: Yes Type: coffee Number of servings: 1 what type of physical activity do you participate in: none seatbelt use: always do you feel safe at home: Yes Vital Signs Vital Signs Vital Signs: 05/17/24 14:59 Temperature 96.8 F L Temperature Source Temporal Pulse Rate 57 L Respiratory Rate 18 Blood Pressure 125/44 H Blood Pressure Mean 71 Blood Pressure Source Monitor Blood Pressure Position Semi-Fowlers Blood Pressure Location Left Arm Oxygen Delivery Method Room Air Weight Weight: 204 lb Body Mass Index (BMI) 31.9 Physical Exam Const alert, oriented x3 and no apparent distress General Appearance: cooperative and comfortable HEENT normocephalic, head/scalp atraumatic, hearing grossly normal bilaterally and external ears normal Eyes EOMs intact bilaterally General Eye: normal appearance of both eyes Neck General: normal visual inspection Resp normal respiratory effort, normal air movement, no retractions and no use of accessory muscles Effort and Inspection: able to speak in complete sentences Cardio regular rate and regular rhythm Extremity Extremity Narrative: 1+ RLE edema R AT pulse multiphasic, strong; R PT and peroneal signals monophasic Skin Wounds: wounds noted Wound Narrative: R 1st digit amputation with sutures intact but some superficial dehiscence/tension; The open portion of the wound has overlying eschar. Wound edges are dusky appearing. R 2nd toe has superficial ulceration and dusky appearance, slightly cooler to touch compared to other digits. Neuro oriented x3, CN's II-XII intact bilaterally, moves all extremities and no focal motor deficits Speech: speech normal Psych mental status grossly normal, cooperative, affect normal and speech normal Appearance: grossly normal Debridement Note Debridement Note No debridement was completed: No debridement was completed today Post-Debridement Measurements and Additional Note: Post-Debridement Measurements/Treatment WC - Nurse 1 - General Ulcer Assessment Start: 05/17/24 14:49 Freq: Status: Active Protocol: FREEMAN Activity Type Activity Date Activity User E-sign Co-sign Detail Recorded Client Recorded Date Recorded By Document 05/17/24 14:59 KW [id number] 05/17/24 15:16 KW 05/17/24 14:59 WC - Today's Visit Information Type of service Initial Visit Arrival Mode Wheelchair Accompanied by family Patient Identification Verified (Name & Yes ) Height and Weight Height 5 ft 7 in Weight 204 lb Weight in Pounds 204.0 lbs Weight Measurement Method Estimated by Patient Body Mass Index (BMI) 31.9 BMI Classification Obese BSA - Megan 2.04 Vital Signs Temperature (97.8 F-99.1 F) 96.8 F L Temperature Source Temporal Pulse Rate (60-100) 57 L Pulse Location Monitor Respiratory Rate (12-18) 18 Respiratory rate source Observation Oxygen Delivery Method Room Air Blood Pressure (90/60-120/80) 125/44 H Blood Pressure Mean 71 Source Monitor Position Semi-Fowlers Blood Pressure Location Left Arm History Since Last Visit- (Skip if this is Patient's initial visit) Left Footwear Slipper Right Footwear No Footwear Pain Scale: 0-10 Numeric Is Patient Pain Free? No Rt Foot -Intensity 7 -Alleviating Factors/Interventions Medication, Medicate when due,Inactivity/ Resting Communication Assessment Preferred language Macedonian Pharmacy Helper Required No Able to Read Yes Able to Write Yes Communication Tools None Caregiver Communication Skills No Impairment Impairment Right Hearing Abillity Normal Left Hearing Abillity Normal Visual Assistive Devices Glasses Teaching Assessment Preferences Verbal,Written, Demonstration Barriers to Learning None Readiness To Learn Excellent Willingness to Engage in Self Management High Activies Readiness to Engage in Self Management High Activities Anxiety Level Calm Cooperation Cooperative Perception Coherent Interest in Health Problem Asks Questions Education Importance Acknowledges Need Does Patient Smoke tobacco or other No substances Smoking Status Never smoker Is Patient Diabetic Yes Functional Assessment Recent Decline in Ability to Perform Ambulation, Bathing,Lower Body Dressing, Toileting, Transferring Culture/Orthodox/Hydraulic And Plumbing Installer Cultural/Orthodox Needs that may affect No Treatment Plan Would you allow our hospital helpdesk analyst to No meet you for the purpose of spiritual/ emotional support? Hydraulic And Plumbing Installer to contact place of lutheran No WC - Nurse 1 - General Ulcer Measurement Start: 05/17/24 14:49 Freq: Status: Active Protocol: Activity Type Activity Date Activity User E-sign Co-sign Detail Recorded Client Recorded Date Recorded By Document 05/17/24 14:59 KW [id number] 05/17/24 15:16 KW 05/17/24 14:59 Wound Center Nurse 1 #1 RT FT POST-OP -Current Size (cm) - Length 2 -Current Size (cm) - Width 2 -Current Size (cm) - Depth 0.2 -Total Square Cm 4 -Date of Last Picture (Recall this 05/17/24 field) -Exudate Amt None Present -Wound Margin Indistinct, Non -Visible -Granulation Amt None Present (0 %) -Necrosis Amt Large (67-100%) -Necrotic Tissue Type Eschar -Texture (Apurva-wound Skin Appearance) Assessed -Moisture (Apurva-wound Skin Appearance) Assessed -Color (Apurva-wound Skin Appearance) Assessed, Ecchymosis, Erythema, Hemosiderin Staining -Temperature (Apurva-wound Skin No Abnormality Appearance) (Pt Warm) -Ulcer Cleansing Soap and Water -Foul Odor after Cleansing No -Anesthetic Used 4% Lidocaine Solution Right Calf (cm) 37.5 Right Ankle (cm) 26 WC - Nurse 2 - General Ulcer CM Notes Start: 05/17/24 14:49 Freq: Status: Active Protocol: Activity Type Activity Date Activity User E-sign Co-sign Detail Recorded Client Recorded Date Recorded By Document 05/17/24 15:34 GM [id number] 05/17/24 15:36 GM Edit Result 05/17/24 15:34 GM (1) [id number] 05/17/24 15:46 GM (1) #1 RT FT POST-OP - Wound Comment(s) sutures intact => sutures intact => incision is 8.0 x 0.4 => open area is 2.2 x 2.4 05/17/24 15:34 Wound Center Nurse 2 #1 RT FT POST-OP -Time 15:34 -Correct Patient Yes -Correct Side, Site, Position Yes -Correct Procedure No -Procedure Performed No -Tunneling No -Undermining/Tunneling No -Circular Undermining No -Wound/Ulcer Outcome Not Healed -Foul Odor after Cleansing No -Bioengineered Tissue No -Bleeding Controlled with NA -Offloading No -Debridement - Open, 1st 20sq cm No -Debridement - Subq, 1st 20sq cm No -Debridement - Muscle / Fascia, 1st No 20sq cm -Debridement - Bone, 1st 20sq cm No -Wound Comment(s) sutures intact incision is 8.0 x 0.4 open area is 2. 2 x 2.4 Pain Scale: 0-10 Numeric Is Patient Pain Free? Yes WC - Nurse 3 - General Ulcer D/C NN Start: 05/17/24 14:49 Freq: Status: Active Protocol: Activity Type Activity Date Activity User E-sign Co-sign Detail Recorded Client Recorded Date Recorded By Document 05/17/24 15:52 DS [id number] 05/17/24 16:01 DS 05/17/24 15:52 Wound Care Center Nurse 3 #1 RT FT POST-OP -Ulcer Cleansing Rinsed/ Irrigated with Saline -Primary Dressing Applied NonAdherent Contact Layer, Other -Other Dressing betadine,abd, kerlix and chase wrap -Primary Dressing Covered/Secured with Secured with Tape Pain Scale: 0-10 Numeric Is Patient Pain Free? 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: CODE(S): I70.25 - Atherosclerosis of [place] arteries of other extremities with ulceration QUALIFIERS: Peripheral atherosclerosis location: lower extremity Laterality: right Lower extremity ulceration location: other part of foot Qualified Code(s): I70.235 - Atherosclerosis of [place] arteries of right leg with ulceration of other part of foot (2) Non-pressure chronic ulcer of other part of right foot with necrosis of bone: CODE(S): L97.514 - Non-pressure chronic ulcer of other part of right foot with necrosis of bone (3) Ischemic toe: CODE(S): I99.8 - Other disorder of circulatory system (4) Type 2 diabetes mellitus: CODE(S): E11.9 - Type 2 diabetes mellitus without complications (5) Chronic diastolic (congestive) heart failure: CODE(S): I50.32 - Chronic diastolic (congestive) heart failure (6) Chronic kidney disease, stage V requiring chronic dialysis: CODE(S): N18.6 - End stage renal disease; Z99.2 - Dependence on renal dialysis PLAN: Plan Will continue with wound care as per podiatry recommendations at discharge: Apply betadine followed by adaptic and dry dressing, change daily or more often as needed to keep clean and dry. She needs podiatry follow-up, unable to coordinate for visit with podiatry here at the wound center next week so our junior legal secretary called and spoke to their office to arrange f/u with Dr. Ruelas there next week. His AT intervention appears to remain patent on exam today; however, amputation site and now 2nd toe appearance consistent with ischemia today. Will plan for repeat RLE angiogram possible intervention with Dr. White, scheduling will be coordinated through the vascular office. Ongoing follow-up with me will be through the vascular office. Ongoing wound care will be with podiatry in their clinic for now.
--- NOTE | 2024-05-28 11:53 | WC ---
PHOTO 05/17/24 RIGHT FOOT POST OP
== END 2024-05-22 23:59 | disposition home or self-care (01) ==
LOC: WC 14:30
PROVIDERS: PCP Family Medicine; Referring Provider Student in an Organized Health Care Education/Training Program; Visit Provider Student in an Organized Health Care Education/Training Program
DX: I70.235 Atherosclerosis of native arteries of right leg with ulceration of other part of foot (principal); L97.514 Non-pressure chronic ulcer of other part of right foot with necrosis of bone; N18.6 End stage renal disease; E11.621 Type 2 diabetes mellitus with foot ulcer; I50.32 Chronic diastolic (congestive) heart failure; Z79.4 Long term (current) use of insulin; E11.42 Type 2 diabetes mellitus with diabetic polyneuropathy; E11.22 Type 2 diabetes mellitus with diabetic chronic kidney disease; E11.628 Type 2 diabetes mellitus with other skin complications; Z79.02 Long term (current) use of antithrombotics/antiplatelets; Z99.2 Dependence on renal dialysis; Z79.84 Long term (current) use of oral hypoglycemic drugs; E78.5 Hyperlipidemia, unspecified; I99.8 Other disorder of circulatory system
CPT/HCPCS: 99213; G0463

== ENCOUNTER 2024-05-22 09:39 | Day surgery (SDC) | payer MEDICARE, SELFPAY ==
[2024-05-21 08:47] VITALS: BMI 31.9
--- NOTE | 2024-05-22 16:33 | OP.PCM_ITS ---
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 Post-Operative Diagnosis: Same Surgery/Procedure Performed: Aortogram, right lower extremity runoff Intravascular ultrasound right anterior tibial artery, popliteal artery Angioplasty and stent right anterior tibial artery bonsai tender: No Type of Anesthesia: Local and Sedation,Conscious Procedure Start Time: 11:00 Procedure Stop Time: 12:30 Select all DRAINS/GRAFTS/IMPLANTS that apply: Implanted device Implanted device details: Crews Esprit Bio-absorbable Scaffold, 3 x 28 Estimated Blood Loss: 7 Specimen collected: No Description of surgery: HPI: Patient is an 89-year-old male with right lower extremity ulceration which required first digit amputation. Prior to this he underwent angiogram with angioplasty of the anterior tibial artery which provided the dominant perfusion to the forefoot and had a significant stenosis proximally with otherwise patent vessel. His wound initially did well however it has developed surrounding necrotic tissue and his second digit is now appearing more ischemic. Duplex suggested patent anterior tibial artery and prior intervention with new occlusion of the peroneal artery. He presents now for angiogram with possible intervention. Description of procedure: Upon obtaining form consent and verification correct patient procedure site the patient was taken to Facilities Maintenance Engineer where he was positioned prepped and draped in usual sterile fashion. Timeouts performed conscious sedation administered Versed and fentanyl. Skin overlying the left common femoral artery was anesthetized 1% lidocaine the vessel accessed with ultrasound guidance with a micropuncture needle wire. This was exchanged for micropuncture sheath through which a hand-injection iliofemoral angiogram was performed revealing satisfactory positioning with no extravasation or dissection. Through the micropuncture sheath Bentson wire was advanced into the abdominal aorta the micropuncture sheath exchanged for a short 5 [place] sheath. Through this an Omni Flush catheter was advanced into the abdominal aorta and a digital subtraction aortogram pelvic angiogram was performed. This revealed normal caliber aorta and bilateral common and external iliac arteries with no significant atherosclerosis or stenosis. He did navigate into the contralateral iliac system with the Bentson wire and Omni Flush catheter advancing her catheter into the distal external iliac artery. This position sequential subtraction angiography of the right lower extremity was performed. The Bentson wire and angled glide catheter were then used to navigate into the superficial femoral artery advancing a wire and catheter into the distal popliteal. From this position further imaging of the infrapopliteal vessels were performed. Imaging revealed no significant atherosclerosis or stenosis though there was dense calcification of the common femoral artery, profundofemoral artery, supe rficial femoral artery and popliteal artery. The anterior tibial artery remained the dominant runoff to the foot and there was recurrence of the proximal segment stenosis that was greater than 50%. The tibioperoneal trunk was widely patent with diffuse calcification but no significant stenosis. The posterior tibial artery was patent proximally with moderate diffuse calcification with occlusion at the ankle. The peroneal artery was patent with diffuse calcification but no significant stenosis and termination at the ankle into multiple terminal branches. Given that there was recurrence of the anterior tibial artery lesion no new occlusion of the peroneal artery is felt that this was the only opportunity to improve his perfusion and effort to salvage his foot. The patient was then heparinized allowed to circulate for 3 minutes. Bentson wires then readvanced and the catheter withdrawn and the short 5 [place] sheath exchanged for a 5 [place] 90 Rabie sheath which is advanced into the distal popliteal artery. Using a command 14 wire and the angled glide catheter we navigated into the anterior tibial artery traversing the lesion. The catheter was then withdrawn and intravascular ultrasound probe advanced recorded pullback performed of the anterior tibial artery in the distal popliteal artery. This confirmed position within the true lumen and revealed that there was in fact a 75% stenosis at the area of prior intervention. This also revealed the lesion to be truly focal with less than 2 cm of total plaque burden and otherwise normal caliber vessel proximal and distal. Given that this lesion recurred in the fairly short interval it was felt that angioplasty and bioabsorbable scaffold was appropriate. A 3 mm x 20 koby angioplasty balloon was then advanced and centered at the lesion and then inflated to nominal for 2 minutes and then deflated. It was then repositioned and again inflated nominal for 2 minutes centering more distal on the lesion. The balloon was then deflated withdrawn and repeat angiogram revealed satisfactory response with some residual stenosis of approximately 30% but no extravasation or dissection. An Crews Esprit bioabsorbable scaffold 3 mm x 28 mm was then advanced into position centered on the lesion. Balloon was then inflated to nominal for 2 minutes and then deflated and withdrawn. Repeat angiogram revealed satisfactory stent positioning with resolution of the area of residual stenosis with brisk contrast transit and no extravasation or dissection. The runoff of the anterior tibial, peroneal, posterior tibial arteries was unchanged. Wire and stent delivery system were then withdrawn and Bentson wire advanced through the long 5 [place] sheath. This was then exchanged for a short 5 [place] sheath and a minx closure device deployed followed by 5 minutes of manual pressure with satisfactory stasis noted. The patient was then taken to the recovery area for bedrest prior to discharge to his [facility]CF. Surgical Findings: Recurrence right proximal anterior tibial artery stenosis at site of prior intervention. Resolved after angioplasty and stent. Patent peroneal artery with continuous inline flow to the ankle where the vessel terminates with multiple branches. Unchanged distal occlusion of the posterior tibial artery at the ankle with patent vessel proximally Complications Complications: No
== END 2024-05-22 15:40 | disposition home or self-care (01) ==
PROVIDERS: PCP Family Medicine; Referring Provider Surgery Trauma Surgery; Visit Provider Surgery Trauma Surgery
DX: I70.234 Atherosclerosis of native arteries of right leg with ulceration of heel and midfoot (principal); I96 Gangrene, not elsewhere classified; E11.621 Type 2 diabetes mellitus with foot ulcer; L97.512 Non-pressure chronic ulcer of other part of right foot with fat layer exposed; M86.171 Other acute osteomyelitis, right ankle and foot; I50.32 Chronic diastolic (congestive) heart failure; E11.69 Type 2 diabetes mellitus with other specified complication; E78.5 Hyperlipidemia, unspecified; I77.1 Stricture of artery; Z79.02 Long term (current) use of antithrombotics/antiplatelets; Z89.411 Acquired absence of right great toe
CPT/HCPCS: 36200; 36245; 37230; 37252; 37253; 75625; 75710; 76937; 99152; 99153; C1725; C1753; C1760; C1769; C1874; C1894; Q9967

== ENCOUNTER → 2024-06-04 06:00 | Outpatient (REF) | payer MEDICARE, SELFPAY ==
[2024-06-04 08:49] LABS: Absolute Lymphocyte Count 2.63 X10^3/uL (0.83-4.51); Absolute Neutrophil Count 5.1 X10^3/uL (2.0-7.7); Basophil# 0.05 X10^3/uL; Basophil% 0.5 % (0-1); Eosinophil# 0.32 X10^3/uL; Eosinophils% 3.5 % (0-5); Hematocrit 32.6 % (40-54); Hemoglobin 9.6 g/dL (13.0-16.5); Lymphocyte # 2.63 X10^3/ul (0.83-4.51); Lymphocyte % 28.9 % (19-41); Mean Corp Hgb Conc 29.4 g/dL (32-36); Mean Corpuscular Hgb 28.4 pg (27.0-32.0); Mean Corpuscular Volume 96.4 fL (80-94); Monocyte# 0.98 X10^3/uL; Monocyte% 10.8 % (0-10); NRBC Flagged by Analyzer 0 % (0-5); Neutrophil # 5.08 X10^3/uL (2.7-7.7); Neutrophil % 55.9 % (47-70); Platelet Count 244 K/mm3 (150-450); RBC Distribution Width CV 15.2 % (11.6-14.6); RBC Distribution Width SD 53.4 fl (35.1-43.9); Red Blood Count 3.38 M/mm3 (4.6-6.2); White Blood Count 9.1 K/mm3 (4.4-11.0)
[2024-06-04 09:01] LABS: Anion Gap 10 (5-15); BUN 51 mg/dL (7-18); BUN/Creat Ratio 9.1 RATIO (10-20); Calcium,Total 9.3 mg/dL (8.5-10.1); Chloride 96 mmol/L (98-107); Creatinine, Serum 5.61 mg/dL (0.70-1.30); EST Glomerular Filtration Rate 10 mL/min (>60); Est Glom Filt Rate - Afr Amer 12 mL/min (>60); Glucose 130 mg/dL (74-106); Potassium 4.7 mmol/L (3.5-5.1); Sodium Level 135 mmol/L (136-145)
== END ==
LOC: OLS.WHLTCC 06:00
PROVIDERS: PCP Family Medicine; Visit Provider Internal Medicine
DX: R41.82 Altered mental status, unspecified (principal); M86.171 Other acute osteomyelitis, right ankle and foot; L03.031 Cellulitis of right toe; M62.561 Muscle wasting and atrophy, not elsewhere classified, right lower leg; Z89.411 Acquired absence of right great toe
CPT/HCPCS: 36415; 80048; 85025

== ENCOUNTER 2024-06-06 05:57 | Day surgery (SDC) | payer MEDICARE, SELFPAY ==
--- NOTE | 2024-05-29 12:07 | HP.PCM_ITS ---
History of Present Illness Date of Service: 05/29/24 Chief Complaint: R 1st digit amputation site, R 2nd toe ulceration History of Wound: He was admitted to [facility] from 04/14-04/24 with infected R diabetic foot wound at the base of his R first metatarsal. He was treated with IV antibiotics. Podiatry performed bedside debridement. He had arterial study showing noncompressible vessels and monophasic waveforms throughout. On 04/18/24, Dr. White performed angiogram showing: PT occluded at the medial mall eolus and stenosed through the distal third but could not successfully cross the lesion to intervene; peroneal at that time was noted to be widely patent; AT was patent large caliber vessel with a stenosis of greater than 75% just beyond its origin with return to normal caliber and continuous flow to the foot where it gave rise to the dorsalis pedal artery and the predominant perfusion to the peda l arch. He performed successful AT angioplasty. He then re-presented to [facility] ER with persistence of the wound at the plantar base of the R 1st MT, but now also with gangrene/ischemic tissue damage to the entirety of the R 1st toe. He was admitted for further management. Repeat arterial study today which showed: Patent AT intervention; now occluded peroneal; RAN not obtainable due to noncompressible vessels, improved biphasic waveforms through the RLE. The patent AT provided dominant inflow to the pedal arch and his overall inflow appeared improved with now biphasic signals so it was felt to be reasonable to proceed with amputation 1st digit amputation by podiatry. Dr. Ruelas performed R 1st digit amputation 05/07/24 and adequate bleeding was noted at that time. Most of the incision site was closed with a flap, but a small portion of the distal aspect was not able to be closed. He has not yet followed up with podiatry since his surgery on 05/07. He resides at [facility] currently. He is on dialysis , , [facility] He is diabetic, last A1c 8.8. Progress of Wound: Patient underwent right lower extremity stenting per Dr. White Patient has had increased necrosis to the right partial first ray amputation site as well as the second digit with discoloration noted to his third and fourth digits. Patient denies any constitutional symptoms or acute pain due to his neuropathy. 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 Pre-op testing Loose, teeth Wears glasses Cancer Dialysis patient Kidney disease Non-smoker Edema Syncope Chronic diastolic (congestive) heart failure (04/18/20) Paroxysmal atrial fibrillation Sinus bradycardia Type 2 diabetes mellitus Hyperkalemia Swelling of both lower extremities HLD (hyperlipidemia) Left bundle-branch block 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 Abnormal electrocardiogram Home Medications ?Medication ?Instructions ?Recorded ?Last Taken ?Type cholecalciferol (vitamin D3) 25 5,000 unit PO DAILY supplement #30 05/02/20 11/06/21 Rx mcg (1,000 unit) tablet tabs aspirin 81 mg tablet,delayed 81 mg PO DAILY heart health 07/01/20 11/06/21 History release (Adult Aspirin Regimen) cyanocobalamin (vitamin B-12) 1,000 mcg PO .SUMOWEDFR supplement 10/07/23 Unknown History 1,000 mcg tablet (Vitamin B-12) torsemide 100 mg tablet 100 mg PO MOWEFR water pill 04/14/24 05/03/24 History acetaminophen 325 mg tablet 650 mg (2 x 325 mg) PO Q6H PRN PRN 04/24/24 Unknown Rx Pain 1-10 Or Fever >100.7 #0 tabs clopidogrel 75 mg tablet 75 mg PO DAILY 30 days #30 tabs 04/24/24 Unknown Rx insulin glargine 100 unit/mL (3 20 unit (0.2 mL) subcut DINNER 04/24/24 Unknown Rx mL) subcutaneous pen diabetes 30 days #0 mL insulin lispro 100 unit/mL 10 unit (0.1 mL) subcut TIDAC #0 mL 04/24/24 Unknown Rx subcutaneous pen (Humalog KwikPen (U-100) Insulin) sennosides 8.6 mg-docusate sodium 2 tab PO BID PRN PRN Constipation 04/24/24 Unknown Rx 50 mg tablet (Stimulant Laxative #0 tabs Plus) insulin lispro 100 unit/mL See Protocol subcut ACHS dm 05/04/24 Unknown History subcutaneous pen (Humalog KwikPen (U-100) Insulin) arginine 7 gram-glutamine 7 ea PO BID 05/22/24 Unknown History gram-calcium HMB 1.5 gram oral powder pack (Dustin) nystatin 100,000 unit/gram topical 1 applic topical BID 05/22/24 Unknown History cream Allergy/AdvReac Type Severity Reaction Status Date / Time pioglitazone (From Actos) Allergy fatigue Verified 05/17/24 15:23 simvastatin (From Zocor) Allergy myalgia Verified 05/17/24 15:23 sitagliptin (From Januvia) Allergy unknown Verified 05/17/24 15:23 Family History Mother Hypertension Father Diabetes COPD (chronic obstructive pulmonary disease) Surgical History History of cataract extraction History of ligation of vein History of arteriovenostomy for renal dialysis History of inguinal hernia repair History of appendectomy Social History Smoking Status: Never smoker alcohol intake: never substance use type: does not use caffeine: Yes Type: coffee Number of servings: 1 what type of physical activity do you participate in: none seatbelt use: always do you feel safe at home: Yes Physical Exam Narrative Vascular: Dorsalis pedis posterior tibial pulses palpable 1 L4 to block to the right lower extremity. Atrophic skin changes with shiny taut, dry appearance. Nonblanching noted to the second and third toes as well as the fourth toe on the right foot. The plantar skin adjacent to the partial first ray amputation site does halie with capillary fill approximately less than 3 seconds. Neurologic: Absent light touch protective sensation to bilateral feet and lower extremities extending into the thigh. Dermatologic: Medial incision to the right partial first ray amputation appears intact proximally but distally there is necrosis that extends into the second digit encompassing the entire second digit. This appears dry and stable without any acute signs of infection at current. There is concern for breakdown of the right third and fourth digit as well with violaceous discoloration and noncompliance ability. Musculoskeletal: Absent first ray right foot. No acute signs of DVT. Assessment/Plan Assessment/Plan (1) Other specified peripheral vascular diseases: CODE(S): I73.89 - Other specified peripheral vascular diseases PLAN: Exam performed Detailed discussion performed with patient and patient's son in law Due to patient's condition he would likely be best served with a transmetatarsal amputation for limb sparing procedure. Did discuss below-knee amputation with patient he does not wish to proceed with this at this time. I did discuss that this would likely have a better chance of healing. But they wish to try and salvage as much of the limb as possible. Will plan for daily Betadine dressings and observation for acute signs of infection. At this time the wound is stable and still demarcating from reperfusion injury to right lower extremity. Will continue nonweightbearing to right lower extremity. No debridement performed today. Follow-up weekly if there are any changes or worsening's we will plan for inpatient care for management of transmetatarsal amputation right foot. (2) Other acute osteomyelitis, right ankle and foot: CODE(S): M86.171 - Other acute osteomyelitis, right ankle and foot
--- NOTE | 2024-06-04 14:38 | PAT.ANE_ITS ---
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 When Was Last Pacemaker Check QUESTION #4 FULL TEXT: You/Your Family Experience fever (hyperthermia) with Anesthesia Last Oral Intake Last Oral intake: Last Oral Intake NPO since Meds taken in AM with sips of water? Meds patient instructed to take am of surgery PONV PONV - automobile relocation engineer: PONV - automobile relocation engineer Female No 06/04/24 13:32 HX of Motion Sickness No 06/04/24 13:32 HX of N/V After Surgery No 06/04/24 13:32 Non-Smoker Yes 06/04/24 13:32 Duration of Surgery greater Yes 06/04/24 13:32 than 60 minutes Number of Risk Factors 2 06/04/24 13:32 PONV Score Moderate Risk 06/04/24 13:32 Height & Weight Height & Weight: Anesthesia: Height & Weight Height 5 ft 7 in 05/22/24 10:29 Respiratory Assessment Respiratory Assessment - automobile relocation engineer: Respiratory Tract Infection Hx - automobile relocation engineer Hx Respiratory Tract Infection No 06/04/24 13:32 STOP Sleep Apnea STOP Sleep Apnea - automobile relocation engineer: STOP Sleep Apnea - automobile relocation engineer Hx Hypertension No 06/04/24 13:32 Hx Sleep Apnea No 06/04/24 13:32 CPAP No 06/04/24 13:32 BIPAP No 06/04/24 13:32 Do you snore loudly (louder No 06/04/24 13:32 than talking or can be heard Do you often feel tired/ No 06/04/24 13:32 fatigued/ sleepy during daytime? Has anyone observed you stop No 06/04/24 13:32 breathing during sleep? STOP Results Negative 06/04/24 13:32 QUESTION #5 FULL TEXT : Do you snore loudly (louder than talking or can be heard through closed doors)? Tobacco Use History Tobacco Use History - automobile relocation engineer: Tobacco Use History - automobile relocation engineer Tobacco Use Non-smoker 09/26/20 11:23 Smoking Status Never smoker 06/04/24 13:32 Hx Tobacco Use No 06/04/24 13:32 Years Smoking Packs Smoked per Day Smoking Cessation Date was within the last 15 years Hx Smoking Cessation Date Hx Smoking Cessation Counseling Hematologic Medial History Hematologic Hx - automobile relocation engineer: Hematologic Medical Hx - french comber Hx of Blood Transfusion No 06/04/24 13:32 Hx of Transfusion in last 3 No 06/04/24 13:32 Months Date of Last Transfusion (if within last 3 months) Ever experience any problems No 06/04/24 13:32 with transfusion(s)? Specify any problems Hx of Preganancy in last 3 N/A 06/04/24 13:32 Months Nurse Filling Out Transfusion DSCHRIBER 06/04/24 13:32 & Questions: Date: 06/04/24 06/04/24 13:32 Time: 13:36 06/04/24 13:32 Patient unable to answer at this time (ie. 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 ESRD (end stage renal disease) Type 2 diabetes mellitus with foot ulcer Diabetes mellitus with diabetic 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 Pre-op testing Loose, teeth Wears glasses Cancer Dialysis patient Kidney disease Non-smoker Edema Syncope Chronic diastolic (congestive) heart failure (04/18/20) Paroxysmal atrial fibrillation Sinus bradycardia Type 2 diabetes mellitus Hyperkalemia Swelling of both lower extremities HLD (hyperlipidemia) Left bundle-branch block 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 Abnormal electrocardiogram Home Medications ?Medication ?Instructions ?Recorded ?Last Taken ?Type cholecalciferol (vitamin D3) 25 5,000 unit PO DAILY supplement #30 05/02/20 11/06/21 Rx mcg (1,000 unit) tablet tabs aspirin 81 mg tablet,delayed 81 mg PO DAILY heart health 07/01/20 11/06/21 History release (Adult Aspirin Regimen) torsemide 100 mg tablet 100 mg PO MOWEFR water pill 04/14/24 05/03/24 History acetaminophen 325 mg tablet 650 mg (2 x 325 mg) PO Q6H PRN PRN 04/24/24 Unknown Rx Pain 1-10 Or Fever >100.7 #0 tabs insulin glargine 100 unit/mL (3 20 unit (0.2 mL) subcut DINNER 04/24/24 Unknown Rx mL) subcutaneous pen diabetes 30 days #0 mL insulin lispro 100 unit/mL 10 unit (0.1 mL) subcut TIDAC #0 mL 04/24/24 Unknown Rx subcutaneous pen (Humalog KwikPen (U-100) Insulin) insulin lispro 100 unit/mL See Protocol subcut ACHS dm 05/04/24 Unknown History subcutaneous pen (Humalog KwikPen (U-100) Insulin) arginine 7 gram-glutamine 7 1 ea PO BID 05/22/24 Unknown History gram-calcium HMB 1.5 gram oral powder pack (Dustin) nystatin 100,000 unit/gram topical 1 applic topical DAILY 05/22/24 Unknown History cream nut.tx.gluc.intol,lac-free,soy 240 ml PO DAILY 06/04/24 Unknown History (Glucerna oral liquid) sennosides 8.6 mg-docusate sodium 1 tab-cap PO BID PRN PRN 06/04/24 Unknown History 50 mg tablet (Stimulant Laxative Constipation Plus) Allergy/AdvReac Type Severity Reaction Status Date / Time pioglitazone (From Actos) Allergy fatigue Verified 06/04/24 13:19 simvastatin (From Zocor) Allergy myalgia Verified 06/04/24 13:19 sitagliptin (From Januvia) Allergy unknown Verified 06/04/24 13:19 Family History Mother Hypertension Father Diabetes COPD (chronic obstructive pulmonary disease) Surgical History (Updated 06/04/24 @ 13:41 by Holley Gr) Hx of foot surgery History of cataract extraction History of ligation of vein History of arteriovenostomy for renal dialysis History of inguinal hernia repair History of appendectomy Social History Smoking Status: Never smoker alcohol intake: never substance use type: does not use caffeine: Yes Type: coffee Number of servings: 1 what type of physical activity do you participate in: none seatbelt use: always do you feel safe at home: Yes Audit: Pertinent Findings Pertinent Findings EKG Perinent findings: 05/04/2024 atrial fibrillation 48 bpm cannot rule out anterior infarct ST and T wave abnormality consider lateral ischemia atrial flutter 4-1 conduction incomplete left bundle branch block 04/14/2024 Echo (EF%) pertinent findings: 04/20/2020 EF 53% Consult pertinent findings: Cardiology 10/07/2023 hypertension continue current medications chronic diastolic congestive heart failure chronic continue with dialysis therapy sinus bradycardia chronic Additional pertinent findings: Not listening cardiology note but known paroxysmal atrial fibrillation creatinine 5.61 hemoglobin 9.6 Recommendation Anesthesia Recommendation Anesthesia recommendation: OPTIMIZED for anesthesia
[2024-06-06] VITALS (8 sets, daily range): BP systolic 96–131; BP diastolic 49–67; PULSE 68–87; RESP 16–20; TEMP 36.1–36.6; O2SAT 95–99; BMI 33.6
[2024-06-06] MEDS: 0.9% Normal Saline (1000mL) 1,000 ML 15 ML IV (06:56)
[2024-06-06 07:14] LABS: Bedside Glucose 102 mg/dL (74-106)
--- NOTE | 2024-06-06 07:30 | AMP_PTH ---
PATIENT: PERLA LUBIN LOC: [facility] [place] U#:[id number] AGE/SX: 89/M ROOM: RE06/06/[address]: Dr. Des Ruelas DPM : 1935 BED: DIS: 06/06/2024 SPEC #: [id number] RECD: 06/06/24 10:40 STATUS: VANE GRAYSON #: [id number] ALEXY: 06/06/24 07:[address]: Des Ruelas DEPT: SURGICAL PATHOLOGY RECD BY: Jeannine Altamirano ENTERED: 06/06/24 11:23 SP TYPE: Amputation OTHR DR: Dr. Jean Yan MD Tissues: Foot, NOS Procedures: Decalcification bone/plaque Surgery Specimen Level V HEADER OPERATION: Right foot transmetatarsal amputation PRE-OP DIAGNOSIS: Osteomyelitis, dry gangrene, right foot, type 2 diabetes, open wound TISSUE SUBMITTED: Right forefoot MICROSCOPIC DIAGNOSIS Right forefoot: Portion of foot with focal gangrenous necrosis. Bone showing focal degenerative changes, no evidence of acute osteomyelitis. PW. 06/11/2024 MICROSCOPIC DESCRIPTION Slides are reviewed. GROSS DESCRIPTION Received in fixative is one container labeled with the patient's name and designated Right forefoot. The specimen consists of a portion of foot containing only four toes. Great toe is absent. The specimen measures 11.0 x 8.0 x 4.0cm. Skin of second, third, and fourth toe shows brown-blackish discoloration consisting of gangrene. Nail appears also dystrophic. All nails also involve by brownish discoloration and necrotic changes. Focal area of ulceration is also noted at the lateral surface of the skin of the foot measuring 1.0cm in greatest dimension. Lateral surface of skin of the foot in addition to the toe also shows brownish-black gangrenous changes. Also present in the container is a piece of tissue with four metatarsal bones measuring in aggregate 7.0 x 4.0 x 2.0cm. Also present in the container are six detached pieces of bone measuring in aggregate 6.5 x 5.5 x 1.5cm. Multiple sutures are also noted at the area of ulceration on the lateral and medial surfaces of the foot. Shelter Supervisor sections are submitted in four cassettes as follows: 1- gangrenous and ulcerated areas, 2-4- bone from toes and detached pieces of bone after decalcification. KAREEM. 06/06/2024 TC:5 CPT:78140,98268
--- NOTE | 2024-06-06 07:37 | PCM.PRE.AN2 ---
ASA Classification* ASA Classification ASA Classification: 3 Assessment & Plan Anesthesia* Anesthesia Assessment Anesthesia Assessment: Discussed sedation and/or anesthesia options, risks, benefits, and alternatives with patient/parents/legal guardian/POA. Questions invited. The patient/parents/legal guardian/POA seems to understand and agrees to proceed with anesthesia plan. Reviewed the physical assessment, medical history, allergy history and patient home medications list prior to surgery/procedure/anesthetic and documented any changes. Performed airway and anesthesia risk assessments. Anesthesia Type Anesthesia Type: General Anesthesia Focused Assessment* Temperature: 97.8 F Pulse Rate: 68 Blood Pressure: 131/49 Respiratory Rate: 18 Pulse Ox: 97 Airway Assessment Mouth opens: >3 cm Mallampati Score: II Focused Labs Anesthesia Preop lab: CBC WBC 9.1 K/mm3 (4.4-11.0) 06/04/24 06:00 RBC 3.38 M/mm3 (4.6-6.2) L 06/04/24 06:00 Hgb 9.6 g/dL (13.0-16.5) L 06/04/24 06:00 Hct 32.6 % (40-54) L 06/04/24 06:00 Plt Count 244 K/mm3 (150-450) 06/04/24 06:00 CHEMISTRY Potassium 4.7 mmol/L (3.5-5.1) 06/04/24 06:00 Sodium 135 mmol/L (136-145) L 06/04/24 06:00 BUN 51 mg/dL (7-18) H 06/04/24 06:00 Creatinine 5.61 mg/dL (0.70-1.30) H 06/04/24 06:00 Glucose 130 mg/dL (74-106) H 06/04/24 06:00 POC Glucose 102 mg/dL (74-106) 06/06/24 06:39 TSH 1.080 uIU/mL (0.358-3.740) 05/15/24 05:05 COAG PT 16.7 SECONDS (11.7-14.9) H 04/15/24 04:15 Pre-Assessment Diagnosis/Proposed Procedure Planned Operative Procedure(s): RIGHT FOOT TRANSMETATARSAL AMPUTATION Anesthesia History Anesthesia History - engine lathe set up operator tool: Anesthesia History - engine lathe set up operator tool Hx Hospitalization No 06/04/24 13:32 Any Problems With Anesthesia No 06/04/24 13:32 Cholinesterase deficiency No 06/04/24 13:32 You/Your Family Experience No 06/04/24 13:32 fever (hyperthermia) with Relationship Recent Exposure to Contagious No 06/06/24 06:39 Disease Does patient have nerve No 06/04/24 13:32 stimulator Patient instructed to have device shut off --Does patient have Pacemaker No 06/06/24 06:39 or ICD? When Was Last Pacemaker Check QUESTION #4 FULL TEXT: You/Your Family Experience fever (hyperthermia) with Anesthesia Last Oral Intake Last Oral intake: Last Oral Intake NPO since 20:00 06/06/24 06:39 Meds taken in AM with sips of Yes 06/06/24 06:39 water? Meds patient instructed to SHOULD HAVE HAD 1/2 DOSE 06/06/24 06:39 take am of surgery LANTUS AT BEDTIME PONV PONV - engine lathe set up operator tool: PONV - engine lathe set up operator tool Female No 06/04/24 13:32 HX of Motion Sickness No 06/04/24 13:32 HX of N/V After Surgery No 06/04/24 13:32 Non-Smoker Yes 06/04/24 13:32 Duration of Surgery greater Yes 06/04/24 13:32 than 60 minutes Number of Risk Factors 2 06/04/24 13:32 PONV Score Moderate Risk 06/04/24 13:32 Height & Weight Height & Weight: Anesthesia: Height & Weight Height 5 ft 7 in 06/06/24 06:39 Weight: 97.522 kg 06/06/24 06:39 Body Mass Index (BMI) 33.6 06/06/24 06:39 Respiratory Assessment Respiratory Assessment - engine lathe set up operator tool: Respiratory Tract Infection Hx - engine lathe set up operator tool Hx Respiratory Tract Infection No 06/04/24 13:32 STOP Sleep Apnea STOP Sleep Apnea - engine lathe set up operator tool: STOP Sleep Apnea - engine lathe set up operator tool Hx Hypertension No 06/04/24 13:32 Hx Sleep Apnea No 06/04/24 13:32 CPAP No 06/04/24 13:32 BIPAP No 06/04/24 13:32 Do you snore loudly (louder No 06/04/24 13:32 than talking or can be heard Do you often feel tired/ No 06/04/24 13:32 fatigued/ sleepy during daytime? Has anyone observed you stop No 06/04/24 13:32 breathing during sleep? STOP Results Negative 06/04/24 13:32 QUESTION #5 FULL TEXT : Do you snore loudly (louder than talking or can be heard through closed doors)? Tobacco Use History Tobacco Use History - engine lathe set up operator tool: Tobacco Use History - engine lathe set up operator tool Tobacco Use Non-smoker 09/26/20 11:23 Smoking Status Never smoker 06/04/24 13:32 Hx Tobacco Use No 06/04/24 13:32 Years Smoking Packs Smoked per Day Smoking Cessation Date was within the last 15 years Hx Smoking Cessation Date Hx Smoking Cessation Counseling Hematologic Medial History Hematologic Hx - engine lathe set up operator tool: Hematologic Medical Hx - lever miller Hx of Blood Transfusion No 06/04/24 13:32 Hx of Transfusion in last 3 No 06/04/24 13:32 Months Date of Last Transfusion (if within last 3 months) Ever experience any problems No 06/04/24 13:32 with transfusion(s)? Specify any problems Hx of Preganancy in last 3 N/A 06/04/24 13:32 Months Nurse Filling Out Transfusion [email or web address] 06/04/24 13:32 & Questions: Date: 06/04/24 06/04/24 13:32 Time: 13:36 06/04/24 13:32 Patient unable to answer at this time (ie. confused, unrespo /Reproduction History /Reproductive History - engine lathe set up operator tool: /Reproductive Hx- engine lathe set up operator tool Hx Now Gestational Age (in weeks): EDC: Hx Hx Para Hx Section SAB No 06/04/24 13:32 Active Medications Active Medications: Current Medications Generic Name Dose Route Start Last Admin Trade Name Freq PRN Reason Stop Dose Admin Sodium Chloride 1,000 mls @ 15 mls/hr 06/06/24 06:15 06/06/24 06:56 IV 06/11/24 19:34 15 mls/hr .Q48H CIRO Administration Protocol PFSH Medical History (Updated 06/04/24 @ 13:41 by Holley Gr) Open wound [facility] in [facility] Dietary restriction History of stress test History of echocardiogram Cardiology follow-up encounter History of atrial fibrillation 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 ESRD (end stage renal disease) Type 2 diabetes mellitus with foot ulcer Diabetes mellitus with diabetic 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 Pre-op testing Loose, teeth Wears glasses Cancer Dialysis patient Kidney disease Non-smoker Edema Syncope Chronic diastolic (congestive) heart failure (04/18/20) Paroxysmal atrial fibrillation Sinus bradycardia Type 2 diabetes mellitus Hyperkalemia Swelling of both lower extremities HLD (hyperlipidemia) Left bundle-branch block 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 Abnormal electrocardiogram Home Medications ?Medication ?Instructions ?Recorded ?Last Taken ?Type cholecalciferol (vitamin D3) 25 5,000 unit PO DAILY supplement #30 05/02/20 06/05/24 Rx mcg (1,000 unit) tablet tabs aspirin 81 mg tablet,delayed 81 mg PO DAILY heart health 07/01/20 06/05/24 History release (Adult Aspirin Regimen) torsemide 100 mg tablet 100 mg PO MOWEFR water pill 04/14/24 06/04/24 History acetaminophen 325 mg tablet 650 mg (2 x 325 mg) PO Q6H PRN PRN 04/24/24 Unknown Rx Pain 1-10 Or Fever >100.7 #0 tabs insulin glargine 100 unit/mL (3 20 unit (0.2 mL) subcut DINNER 04/24/24 06/05/24 Rx mL) subcutaneous pen diabetes 30 days #0 mL insulin lispro 100 unit/mL 10 unit (0.1 mL) subcut TIDAC #0 mL 04/24/24 Unknown Rx subcutaneous pen (Humalog KwikPen (U-100) Insulin) insulin lispro 100 unit/mL See Protocol subcut ACHS dm 05/04/24 Unknown History subcutaneous pen (Humalog KwikPen (U-100) Insulin) arginine 7 gram-glutamine 7 1 ea PO BID 05/22/24 06/05/24 History gram-calcium HMB 1.5 gram oral powder pack (Dustin) nystatin 100,000 unit/gram topical 1 applic topical DAILY 05/22/24 06/05/24 History cream nut.tx.gluc.intol,lac-free,soy 240 ml PO DAILY 06/04/24 06/05/24 History (Glucerna oral liquid) sennosides 8.6 mg-docusate sodium 1 tab-cap PO BID PRN PRN 06/04/24 06/05/24 History 50 mg tablet (Stimulant Laxative Constipation Plus) Allergy/AdvReac Type Severity Reaction Status Date / Time pioglitazone (From Actos) Allergy fatigue Verified 06/04/24 13:19 simvastatin (From Zocor) Allergy myalgia Verified 06/04/24 13:19 sitagliptin (From Januvia) Allergy unknown Verified 06/04/24 13:19 Family History Mother Hypertension Father Diabetes COPD (chronic obstructive pulmonary disease) Surgical History (Updated 06/04/24 @ 13:41 by Holley Gr) Hx of foot surgery History of cataract extraction History of ligation of vein History of arteriovenostomy for renal dialysis History of inguinal hernia repair History of appendectomy Social History Smoking Status: Never smoker alcohol intake: never substance use type: does not use caffeine: Yes Type: coffee Number of servings: 1 what type of physical activity do you participate in: none seatbelt use: always do you feel safe at home: Yes Review of Systems (Anesthesia) ROS Narrative System reviewed and no additional complaints, except as documented.
[2024-06-06] MEDS: Cefazolin 2 GM in Syringe IV (08:05)
[2024-06-06] MEDS: Bupivacaine Mpf 0.5% 30 ML VIAL (09:12)
--- NOTE | 2024-06-06 09:32 | OP.PCM_ITS ---
Problems Associated Problem List Diagnoses (1) Other acute postprocedural pain: (2) Other specified peripheral vascular diseases: (3) Other acute osteomyelitis, right ankle and foot: Operative Report (Standard) Operative Information Date of Procedure: 06/06/24 Pre-Operative Diagnosis: 1) osteomyelitis right foot Post-Operative Diagnosis: Same Surgery/Procedure Performed: Transmetatarsal amputation right foot with advancement flap right foot translator interpreter: No Type of Anesthesia: General RN Documented Start/Stop Times: Operation Date: 06/06/24 07:30 Case Time Into Pre-Op 06/06/24 06:10 Out of Pre-Op 06/06/24 07:43 Anesthesia Start 06/06/24 07:47 Into Room 06/06/24 07:47 Procedure Start 06/06/24 08:12 Procedure End 06/06/24 09:19 Anesthesia End 06/06/24 09:28 Out of Room 06/06/24 09:28 Into Recovery 06/06/24 09:30 Procedure Start Time: 08:12 Procedure Stop Time: 09:20 Select all DRAINS/GRAFTS/IMPLANTS that apply: None Special Medications: 30cc 0.5% marcaine plain Estimated Blood Loss: 100 cc Specimen collected: Yes Description of specimen(s) removed: right forefoot for culture and pathology Description of surgery: Patient brought back the operating placed complete in the supine position on the operating room table. Patient induced under general anesthesia. Well-padded right ankle tourniquet applied. Right lower extremity scrubbed prepped and draped using aseptic fashion. No tourniquet used throughout the case. [place] incision was drawn and made full-thickness with a #10 blade through epidermis dermis down to's level of bone to digits 1 through 5 were disarticulated at the metatarsophalangeal joint the first ray was already gone due to previous amputation. A flap was undermined and mobilized dorsally exposing the metatarsals all the way back to the bases the same process was repeated plantarly this was to allow for advancement of the dorsal and plantar flaps allow for large wound closure upon excision of the second third fourth and fifth metatarsal shafts down to the level of base 2nd through 5th metatarsals were excised using a sagittal saw and passed the back table. Additional resection performed at the first ray to allow for adequate soft tissue closure under minimal tension. All tendinous and nonviable tissue were debrided from the dorsal and plantar flaps using combination of 15 blade and baby Metzenbaum scissors. These were excised to allow for mobilization of the flap as well as adequate vascularization to that flap. Site was flushed with copious amounts of normal sterile saline. There is noted to be tension-free apposition of the dorsal and plantar flap. Closure performed with simple interrupted buried 2-0 Vicryl. Skin closure performed with hola. Site dressed with Betadine Adaptic 4 x 4's Kerlix ABD pads and a lightly wrapped Alessandro. Patient was transported PACU vital signs stable vascular status intact all digits for further monitoring prior to discharge. Patient tolerated procedure and anesthesia well apparent satisfactory condition. No complications. Adequate bleeding noted to surgical site suggestive of healing potential. Despite that there was some nonbloody debility due to noted to the plantar flap. Will observe in postoperative setting is possible patient may require more proximal amputation in future if transmetatarsal amputation does not heal. Pathologic specimens right forefoot bone and tissue for culture and pathology Surgical Findings: As dictated above Complications Complications: No
--- NOTE | 2024-06-06 09:42 | PCM.POST.ANE ---
Anesthesia: Postop Eval I Current Vital Signs Temperature: 97.8 F Pulse Rate: 82 Blood Pressure: 108/52 Respiratory Rate: 20 Pulse Ox: 99 Assessment Airway patent: Yes Spontaneous unlabored respirations: Yes nausea: No Vomiting: No Anesthesia Complication: No Fluid Hydration Crystalloid volume administer (ml): 400 Total IV fluid infused: 400 Progress Note Anesthesia document: Postop Eval 1 completed: Yes
--- NOTE | 2024-06-06 09:50 | RAD_ITS ---
STUDY: X-RAY - RIGHT FOOT CLINICAL: Male, 89 years old. Transmetatarsal amputation TECHNIQUE: 3 view(s) of the foot. COMPARISON: Comparison is made with prior study dated February 06, 2024. FINDINGS: The patient is status post transmetatarsal amputation of all 5 metatarsals. Diffuse persistent soft tissue swelling. Vascular calcification. RAD/Foot min 3 Views IMPRESSION: Transmetatarsal amputation. Postoperative soft tissue changes. Electronically Signed: Kareem Yao MD at 10:30 EST ,
--- NOTE | 2024-06-06 10:50 | SUR.PHASEII ---
THIS NURSE CALLED P TO [facility] AND SPOKE WITH PTS NURSE NASREEN. VERBALIZED THE D/C INSTRUCTIONS OF WOUND CARE AND WEIGHTBEARING STATUS AND WHAT THINGS NEED TO BE REPORTED TO THE DOCTORS OFFICE ALL OF WHICH IS OUTLINED ON THE D/C INSTRUCTIONS WHICH WERE PRINTED AND SENT WITH THE PT'S FAMILY TO GO BACK TO THE FACILITY. PT TO BE D/C BACK TO SNF.
--- NOTE | 2024-06-06 12:58 | POSTOPAN2_ITS ---
Anesthesia Postop Eval I Sum Postop Eval Completion status Anesthesia document: Postop Eval 1 completed: Yes Anesthesia Postop Eval I Summary Anesthesia Postop Eval I Summary: Anesthesia Postop Eval I: Assessment Summary Airway patent Yes 06/06/24 09:42 PRIMARY SCHOOL [email or web address] Spontaneous unlabored Yes 06/06/24 09:42 PRIMARY SCHOOL TEACHER.[email or web address] respirations Mental status nausea No 06/06/24 09:42 PRIMARY SCHOOL TEACHER.[email or web address] Vomiting No 06/06/24 09:42 PRIMARY SCHOOL TEACHER.[email or web address] Anesthesia Postop Eval I: Fluid Summary Crystalloid volume administer 400 06/06/24 09:42 PRIMARY SCHOOL TEACHER.[email or web address] (ml) Colloids volume administered ( ml) Blood Product volume administered (ml) Total IV fluid infused 400 06/06/24 09:42 PRIMARY SCHOOL [email or web address].[email or web address] Anesthesia Postop Eval I: Summary Notes Anesthesia Complication No 06/06/24 09:42 PRIMARY SCHOOL [email or web address].[email or web address] Anesthesia Complication Comment: Post-operative progress note Anesthesia: Postop Eval II Evaluation Mental status: Awake Pain Level: 0 nausea: No Vomiting: No
--- NOTE | 2024-06-06 12:58 | PCM.POSTANE2 ---
Anesthesia Postop Eval I Sum Postop Eval Completion status Anesthesia document: Postop Eval 1 completed: Yes Anesthesia Postop Eval I Summary Anesthesia Postop Eval I Summary: Anesthesia Postop Eval I: Assessment Summary Airway patent Yes 06/06/24 09:42 VENDING MACHINE [email or web address] Spontaneous unlabored Yes 06/06/24 09:42 VENDING MACHINE [email or web address].[email or web address] respirations Mental status nausea No 06/06/24 09:42 VENDING MACHINE [email or web address].[email or web address] Vomiting No 06/06/24 09:42 VENDING MACHINE [email or web address] Anesthesia Postop Eval I: Fluid Summary Crystalloid volume administer 400 06/06/24 09:42 VENDING MACHINE [email or web address] (ml) Colloids volume administered ( ml) Blood Product volume administered (ml) Total IV fluid infused 400 06/06/24 09:42 VENDING MACHINE [email or web address] Anesthesia Postop Eval I: Summary Notes Anesthesia Complication No 06/06/24 09:42 VENDING MACHINE [email or web address] Anesthesia Complication Comment: Post-operative progress note Anesthesia: Postop Eval II Evaluation Mental status: Awake Pain Level: 0 nausea: No Vomiting: No
== END 2024-06-06 10:54 | disposition home or self-care (01) ==
LOC: SDC 06:01 → AC 06:03
PROVIDERS: PCP Family Medicine; Referring Provider Podiatrist; Visit Provider Podiatrist
PROC: (CPT 28805; principal; 2024-06-06 07:15)
DX: E11.52 Type 2 diabetes mellitus with diabetic peripheral angiopathy with gangrene (principal); I70.261 Atherosclerosis of native arteries of extremities with gangrene, right leg; E11.621 Type 2 diabetes mellitus with foot ulcer; L97.512 Non-pressure chronic ulcer of other part of right foot with fat layer exposed; M86.171 Other acute osteomyelitis, right ankle and foot; I50.32 Chronic diastolic (congestive) heart failure; I48.0 Paroxysmal atrial fibrillation; E11.69 Type 2 diabetes mellitus with other specified complication; Z79.4 Long term (current) use of insulin; E11.42 Type 2 diabetes mellitus with diabetic polyneuropathy; E11.22 Type 2 diabetes mellitus with diabetic chronic kidney disease; G89.18 Other acute postprocedural pain; E78.5 Hyperlipidemia, unspecified; Z99.2 Dependence on renal dialysis; Z79.02 Long term (current) use of antithrombotics/antiplatelets; Z79.82 Long term (current) use of aspirin; Z79.84 Long term (current) use of oral hypoglycemic drugs; Z95.820 Peripheral vascular angioplasty status with implants and grafts; Z89.411 Acquired absence of right great toe
CPT/HCPCS: 28805; 14040; 01480; 36415; 73630; 80076; 82962; 83036; 87015; 87070; 87075; 87102; 87116; 87205; 87206; 88307; 88311; J2405

== ENCOUNTER → 2024-06-06 | Outpatient (REF) | payer MEDICARE, SELFPAY ==
[2024-06-06 07:25] LABS: AST(SGOT) 13 U/L (15-37); Alanine Aminotransfer ALT/SGPT 18 U/L (16-61); Albumin, Serum 2.4 g/dL (3.2-5.0); Alkaline Phosphatase 68 U/L (45-117); Bilirubin, Direct 0.12 mg/dL (0.00-0.30); Globulin 5.1 g/dL (2.2-4.2); Protein, Total 7.5 g/dL (6.4-8.2)
== END ==
LOC: OLS.WHLTCC 05:00
PROVIDERS: PCP Family Medicine; Visit Provider Internal Medicine
DX: E11.628 Type 2 diabetes mellitus with other skin complications (principal); L03.031 Cellulitis of right toe; M62.561 Muscle wasting and atrophy, not elsewhere classified, right lower leg; M86.171 Other acute osteomyelitis, right ankle and foot
CPT/HCPCS: 36415; 80076; 83036

== ENCOUNTER → 2024-06-08 05:00 | Outpatient (REF) | payer MEDICARE, SELFPAY ==
[2024-06-08 08:58] LABS: AST(SGOT) 14 U/L (15-37); Alanine Aminotransfer ALT/SGPT 7 U/L (16-61); Albumin, Serum 2.2 g/dL (3.2-5.0); Alkaline Phosphatase 56 U/L (45-117); Bilirubin, Direct 0.14 mg/dL (0.00-0.30); Globulin 4.4 g/dL (2.2-4.2); Protein, Total 6.6 g/dL (6.4-8.2)
[2024-06-08 09:44] LABS: Hemoglobin A1c 7.7 % (3.8-5.6)
== END ==
LOC: OLS.WHLTCC 05:00
PROVIDERS: PCP Family Medicine; Visit Provider Internal Medicine
DX: E11.628 Type 2 diabetes mellitus with other skin complications (principal)
CPT/HCPCS: 36415; 80076; 83036

== ENCOUNTER → 2024-06-11 05:00 | Outpatient (REF) | payer MEDICARE, SELFPAY ==
[2024-06-11 10:07] LABS: Absolute Neutrophil Count 4.8 X10^3/uL (2.0-7.7); Basophil# 0.05 X10^3/uL; Basophil% 0.6 % (0-1); Eosinophil# 0.21 X10^3/uL; Eosinophils% 2.7 % (0-5); Hemoglobin 8.1 g/dL (13.0-16.5); Lymphocyte % 25.4 % (19-41); Mean Corpuscular Hgb 28.4 pg (27.0-32.0); Mean Corpuscular Volume 94.7 fL (80-94); Monocyte# 0.76 X10^3/uL; Monocyte% 9.7 % (0-10); NRBC Flagged by Analyzer 0 % (0-5); Neutrophil # 4.81 X10^3/uL (2.7-7.7); Neutrophil % 61.1 % (47-70); Platelet Count 295 K/mm3 (150-450); RBC Distribution Width CV 14.6 % (11.6-14.6); RBC Distribution Width SD 50.4 fl (35.1-43.9); Red Blood Count 2.85 M/mm3 (4.6-6.2); White Blood Count 7.9 K/mm3 (4.4-11.0)
[2024-06-11 10:13] LABS: Anion Gap 7 (5-15); BUN 69 mg/dL (7-18); Calcium,Total 9.1 mg/dL (8.5-10.1); Chloride 94 mmol/L (98-107); Creatinine, Serum 5.75 mg/dL (0.70-1.30); EST Glomerular Filtration Rate 10 mL/min (>60); Est Glom Filt Rate - Afr Amer 12 mL/min (>60); Glucose 222 mg/dL (74-106); Potassium 5.1 mmol/L (3.5-5.1); Sodium Level 131 mmol/L (136-145)
== END ==
LOC: OLS.WHLTCC 05:00
PROVIDERS: PCP Family Medicine; Visit Provider Internal Medicine
DX: M86.171 Other acute osteomyelitis, right ankle and foot (principal); Z47.81 Encounter for orthopedic aftercare following surgical amputation; Z89.411 Acquired absence of right great toe; L03.031 Cellulitis of right toe; M62.561 Muscle wasting and atrophy, not elsewhere classified, right lower leg
CPT/HCPCS: 36415; 80048; 85025

== ENCOUNTER 2024-06-19 11:15 | Outpatient (RCR) | payer MEDICARE, SELFPAY ==
[2024-05-23 00:51] VITALS: BP 125/44; PULSE 57; RESP 18; TEMP 36; BMI 31.9
[2024-05-29 10:49] VITALS: BP 111/31; PULSE 58; RESP 18; TEMP 36.2; BMI 31.9
--- NOTE | 2024-05-31 12:07 | WC ---
PHOTO 05/29/24 RIGHT FOOT POST OP
[2024-06-12 11:21] VITALS: RESP 18; TEMP 35.9; BMI 31.9
--- NOTE | 2024-06-12 12:08 | PN.PCM_ITS ---
History of Present Illness Date of Service: 06/12/24 Chief Complaint: R 1st digit amputation site, R 2nd toe ulceration Progress of Wound: Patient postop from a right transmetatarsal amputation this was performed on 06/08/2024. Patient denies any constitutional symptoms. Patient denies any acute pain but patient does have significant peripheral neuropathy. Patient has no other complaints. [facility] in a [facility] facility is maintaining nonweightbearing to right lower extremity. Objective Data Objective Data Vital Signs: Vital Signs Temp Pulse Resp BP 96.7 F L 58 L 18 111/31 L 06/12/24 11:21 05/29/24 10:49 06/12/24 11:21 05/29/24 10:49 Weight: 92.533 kg Body Mass Index (BMI) 31.9 Physical Exam Narrative Neurovascular status unchanged. There is some slight distal central necrosis of the incisional site. There is 2 ulcerations to the plantar lateral heel. These demonstrate necrotic base. No acute signs of infection. [place] are intact to transmetatarsal incisional s ite. No sign DVT to bilateral lower extremity. Debridement Note Debridement Note Post-Debridement Measurements and Additional Note: Post-Debridement Measurements/Treatment - Nurse 1 - General Ulcer Assessment Start: 05/29/24 10:49 Freq: Status: Active Protocol: FREEMAN Activity Type Activity Date Activity User E-sign Co-sign Detail Recorded Client Recorded Date Recorded By Document 05/29/24 10:49 RB [id number] 05/29/24 11:01 RB Document 06/12/24 11:21 RB [id number] 06/12/24 11:36 RB 05/29/24 06/12/24 10:49 11:21 - Today's Visit Information Type of service Follow-up Visit Follow-up Visit (Physician/SENIOR PLANNER (Physician/SENIOR PLANNER ) ) Arrival Mode Wheelchair Ambulatory Transfer Assistance None None Patient Identification Verified (Name & Yes Yes ) Patient Requires Transmission-Based No No Precautions Safety Precautions NA Height and Weight Body Mass Index (BMI) 31.9 31.9 BMI Classification Obese Obese Vital Signs Temperature (97.8 F-99.1 F) 97.2 F L 96.7 F L Temperature Source Temporal Temporal Pulse Rate (60-100) 58 L Pulse Location Monitor Monitor Respiratory Rate (12-18) 18 18 Respiratory rate source Observation Observation Blood Pressure (90/60-120/80) 111/31 L Blood Pressure Mean (mm Hg) 57 Source Monitor Monitor Position Sitting Semi-Fowlers Blood Pressure Location Left Arm Left Arm History Since Last Visit- (Skip if this is Patient's initial visit) Have you changed medications since your No No last visit? Any new allergies or adverse reactions No No Had a fall/change in ADL's that may No No increase risk of falls Signs or symptoms of abuse and/or No No neglect since last visit Have you been in the hospital since your No Yes last visit? Has dressing in place as prescribed Yes Yes Has compression in place as prescribed No Yes Has offloadiing in place as prescribed No No Experienced any changes in pain level or No No management Left Footwear Slipper Right Footwear Multipodus Splint/Boot Pain Scale: 0-10 Numeric Is Patient Pain Free? Yes Yes Rt Foot -Description Aching -Pain Behavior Withdrawal from Touch -Pain Aggravating Factors Exercise/ Activity -Alleviating Factors/Interventions Medication -Effectiveness of Alleviating Factor/ Moderately Intervention effective WC - Nurse 1 - General Ulcer Measurement Start: 05/29/24 10:49 Freq: Status: Active Protocol: Activity Type Activity Date Activity User E-sign Co-sign Detail Recorded Client Recorded Date Recorded By Document 05/29/24 10:49 RB [id number] 05/29/24 11:01 RB Document 06/12/24 11:21 RB [id number] 06/12/24 11:36 RB Edit Result 06/12/24 11:21 RB (1) [id number] 06/12/24 11:38 RB (1) #1 RT FT POST-OP - Wound Comment(s) INCINSION WELL APPPROXIMATED AND JEWELL INTACT => INCINSION WELL APPPROXIMATED AND JEWELL INTACT => TWO AREAS NOTED ON RIGHT HEEL PRESSURE RELATED AND ON DORSAL OF LEFT FOOT 05/29/24 06/12/24 10:49 11:21 Wound Center Nurse 1 #1 RT FT POST-OP -Combined with other wound No No -Current Size (cm) - Length 0.1 0.1 -Current Size (cm) - Width 0.1 0.1 -Current Size (cm) - Depth 0.1 0.1 -Total Square Cm 0.01 0.01 -Photo Taken Yes Yes -Tunneling No No -Undermining/Tunneling No No -Circular Undermining No No -Exudate Amt Small Large -Exudate Type Serosanguineous Serosanguineous -Wound Margin Distinct, Distinct, Outline Outline Attached Attached -Granulation Amt None Present (0 Medium (34-66%) %) -Granulation Quality [place] -Slough/Fibrin Yes Yes -Necrosis Amt Large (67-100%) Small (1-33%) -Necrotic Tissue Type Eschar Adherent Slough -Structure Exposed N/A N/A -Texture ([place]ur[place]-wound Skin Appearance) Assessed Scarring -Moisture (Apurva-wound Skin Appearance) Assessed,Dry/ Assessed Scaly -Color (Apurva-wound Skin Appearance) Assessed Assessed -Temperature (Apurva-wound Skin No Abnormality No Abnormality Appearance) (Pt Warm) (Pt Warm) -Tenderness on Palpation (Apurva-wound No No Skin Appearance) -Ulcer Cleansing Wound Cleanser Wound Cleanser -Foul Odor after Cleansing No No -Wound Comment(s) Right foot INCINSION WELL incision well APPPROXIMATED approximated AND JEWELL sutures intact INTACT . 3 pressure TWO AREAS NOTED areas eschar ON RIGHT HEEL noted on PRESSURE lateral right RELATED AND ON foot . right DORSAL OF LEFT 2nd toe FOOT necrotic . WC - Nurse 2 - General Ulcer CM Notes Start: 05/29/24 10:49 Freq: Status: Active Protocol: Activity Type Activity Date Activity User E-sign Co-sign Detail Recorded Client Recorded Date Recorded By Document 05/29/24 11:12 FISH [id number] 05/29/24 11:19 Document 06/12/24 11:44 FISH [id number] 06/12/24 11:45 05/29/24 06/12/24 11:12 11:44 Wound Center Nurse 2 #1 RT FT POST-OP -Correct Patient Yes No -Correct Side, Site, Position No No -Correct Procedure No No -Procedure Performed No No -Wound/Ulcer Outcome Amputation Not Healed Anticipated Pain Scale: 0-10 Numeric Is Patient Pain Free? Yes Yes WC - Nurse 3 - General Ulcer D/C NN Start: 05/29/24 10:49 Freq: Status: Active Protocol: Activity Type Activity Date Activity User E-sign Co-sign Detail Recorded Client Recorded Date Recorded By Document 05/29/24 11:50 KW [id number] 05/29/24 11:50 KW Document 06/12/24 12:07 RB [id number] 06/12/24 12:08 RB 05/29/24 06/12/24 11:50 12:07 Wound Care Center Nurse 3 #1 RT FT POST-OP -Ulcer Cleansing Rinsed/ Irrigated with Saline -Primary Dressing Applied NonAdherent Contact Layer -Other Dressing betadine BACTRACIN painted to ulcers -Primary Dressing Covered/Secured with Dry Gauze & Dry Gauze,Dry Roll Gauze, Gauze & Roll Secured with Gauze,Secured Tape with Tape -Other Covering abd Treatment Response Procedure Tolerated Well Pain Scale: 0-10 Numeric Is Patient Pain Free? Yes Yes WC - Visit Discharge Discharge Condition Stable Stable Ambulatory Status Wheelchair Wheelchair Transportation Private Auto Medication Reconcilliation completed & No No provided to patient/care provider Clinical Summary of Care Provided Yes Yes Assessment/Plan Assessment/Plan (1) Other acute osteomyelitis, right ankle and foot: CODE(S): M86.171 - Other acute osteomyelitis, right ankle and foot PLAN: Exam performed. Some breakdown to amputation site. Some necrosis to the lateral right foot wound. Patient following with vascular surgery closely. Patient maintain nonweightbearing to right lower extremity. Redressed surgical site with antibiotic ointment Adaptic 4 x 4's Kerlix and dry sterile dressing. Discussed dependency and avoidance of compression to allow for adequate blood flow to the area. Discussed that patient will likely require local wound care to allow for definitive healing moving forward however this time we are letting everything demarcate and stabilize before we perform any formal debridements. Patient will follow-up on a weekly basis. (2) Other specified peripheral vascular diseases: CODE(S): I73.89 - Other specified peripheral vascular diseases
[2024-06-19 11:43] VITALS: RESP 18; BMI 31.9
--- NOTE | 2024-06-19 12:09 | PN.PCM_ITS ---
History of Present Illness Date of Service: 06/19/24 Chief Complaint: R 1st digit amputation site, R 2nd toe ulceration History of Wound: He was admitted to [facility] from 04/14-04/24 with infected R diabetic foot wound at the base of his R first metatarsal. He was treated with IV antibiotics. Podiatry performed bedside debridement. He had arterial study showing noncompressible vessels and monophasic waveforms throughout. On 04/18/24, Dr. White performed angiogram showing: PT occluded at the medial mall eolus and stenosed through the distal third but could not successfully cross the lesion to intervene; peroneal at that time was noted to be widely patent; AT was patent large caliber vessel with a stenosis of greater than 75% just beyond its origin with return to normal caliber and continuous flow to the foot where it gave rise to the dorsalis pedal artery and the predominant perfusion to the peda l arch. He performed successful AT angioplasty. He then re-presented to [facility] ER with persistence of the wound at the plantar base of the R 1st MT, but now also with gangrene/ischemic tissue damage to the entirety of the R 1st toe. He was admitted for further management. Repeat arterial study today which showed: Patent AT intervention; now occluded peroneal; RAN not obtainable due to noncompressible vessels, improved biphasic waveforms through the RLE. The patent AT provided dominant inflow to the pedal arch and his overall inflow appeared improved with now biphasic signals so it was felt to be reasonable to proceed with amputation 1st digit amputation by podiatry. Dr. Ruelas performed R 1st digit amputation 05/07/24 and adequate bleeding was noted at that time. Most of the incision site was closed with a flap, but a small portion of the distal aspect was not able to be closed. He has not yet followed up with podiatry since his surgery on 05/07. He resides at [facility] currently. [facility] is on [facility] , [facility] He is diabetic, last A1c 8.8. Progress of Wound: Patient postop from a right transmetatarsal amputation this was performed on 06/08/2024. Patient denies any constitutional symptoms. Patient denies any acute pain but patient does have significant peripheral neuropathy. Patient has no other complaints. Patient is in a senior care facility is maintaining nonweightbearing to right lower extremity. Objective Data Objective Data Vital Signs: Vital Signs Temp Pulse Resp BP 96.7 F L 58 L 18 111/31 L 06/12/24 11:21 05/29/24 10:49 06/12/24 11:21 05/29/24 10:49 Weight: 92.533 kg Body Mass Index (BMI) 31.9 Physical Exam Narrative Neurovascular status unchanged. There is some slight distal central necrosis of the incisional site. There is 2 ulcerations to the plantar lateral heel. These demonstrate necrotic base. No acute signs of infection. [place] are intact to transmetatarsal incisional site. No sign DVT to bilateral lower extremity. Debridement Note Debridement Note Post-Debridement Measurements and Additional Note: Post-Debridement Measurements/Treatment - Nurse 1 - General Ulcer Assessment Start: 05/29/24 10:49 Freq: Status: Active Protocol: .LOWEXT Activity Type Activity Date Activity User E-sign Co-sign Detail Recorded Client Recorded Date Recorded By Document 05/29/24 10:49 [id number] 05/29/24 11:01 RB Document 06/12/24 11:21 RB [id number] 06/12/24 11:36 RB 05/29/24 06/12/24 10:49 11:21 - Today's Visit Information Type of service Follow-up Visit Follow-up Visit (Physician/PROJECT ADMINISTRATIVE ASSISTANT (Physician/PROJECT ADMINISTRATIVE ASSISTANT ) ) Arrival Mode Wheelchair Ambulatory Transfer Assistance None None Patient Identification Verified (Name & Yes Yes ) Patient Requires Transmission-Based No No Precautions Safety Precautions NA Height and Weight Body Mass Index (BMI) 31.9 31.9 BMI Classification Obese Obese Vital Signs Temperature (97.8 F-99.1 F) 97.2 F L 96.7 F L Temperature Source Temporal Temporal Pulse Rate (60-100) 58 L Pulse Location Monitor Monitor Respiratory Rate (12-18) 18 18 Respiratory rate source Observation Observation Blood Pressure (90/60-120/80) 111/31 L Blood Pressure Mean (mm Hg) 57 Source Monitor Monitor Position Sitting Semi-Fowlers Blood Pressure Location Left Arm Left Arm History Since Last Visit- (Skip if this is Patient's initial visit) Have you changed medications since your No No last visit? Any new allergies or adverse reactions No No Had a fall/change in ADL's that may No No increase risk of falls Signs or symptoms of abuse and/or No No neglect since last visit Have you been in the hospital since your No Yes last visit? Has dressing in place as prescribed Yes Yes Has compression in place as prescribed No Yes Has offloadiing in place as prescribed No No Experienced any changes in pain level or No No management Left Footwear Slipper Right Footwear Multipodus Splint/Boot Pain Scale: 0-10 Numeric Is Patient Pain Free? Yes Yes Rt Foot -Description Aching -Pain Behavior Withdrawal from Touch -Pain Aggravating Factors Exercise/ Activity -Alleviating Factors/Interventions Medication -Effectiveness of Alleviating Factor/ Moderately Intervention effective WC - Nurse 1 - General Ulcer Measurement Start: 05/29/24 10:49 Freq: Status: Active Protocol: Activity Type Activity Date Activity User E-sign Co-sign Detail Recorded Client Recorded Date Recorded By Document 05/29/24 10:49 RB [id number] 05/29/24 11:01 RB Document 06/12/24 11:21 RB [id number] 06/12/24 11:36 RB Edit Result 06/12/24 11:21 RB (1) [id number] 06/12/24 11:38 RB (1) #1 RT FT POST-OP - Wound Comment(s) INCINSION WELL APPPROXIMATED AND JEWELL INTACT => INCINSION WELL APPPROXIMATED AND JEWELL INTACT => TWO AREAS NOTED ON RIGHT HEEL PRESSURE RELATED AND ON DORSAL OF LEFT FOOT 05/29/24 06/12/24 10:49 11:21 Wound Center Nurse 1 #1 RT FT POST-OP -Combined with other wound No No -Current Size (cm) - Length 0.1 0.1 -Current Size (cm) - Width 0.1 0.1 -Current Size (cm) - Depth 0.1 0.1 -Total Square Cm 0.01 0.01 -Photo Taken Yes Yes -Tunneling No No -Undermining/Tunneling No No -Circular Undermining No No -Exudate Amt Small Large -Exudate Type Serosanguineous Serosanguineous -Wound Margin Distinct, Distinct, Outline Outline Attached Attached -Granulation Amt None Present (0 Medium (34-66%) %) -Granulation Quality [place] -Slough/Fibrin Yes Yes -Necrosis Amt Large (67-100%) Small (1-33%) -Necrotic Tissue Type Eschar Adherent Slough -Structure Exposed N/A N/A -Texture (Apurva-wound Skin Appearance) Assessed Scarring -Moisture (Apurva-wound Skin Appearance) Assessed,Dry/ Assessed Scaly -Color (Apurva-wound Skin Appearance) Assessed Assessed -Temperature (Apurva-wound Skin No Abnormality No Abnormality Appearance) (Pt Warm) (Pt Warm) -Tenderness on Palpation (Apurva-wound No No Skin Appearance) -Ulcer Cleansing Wound Cleanser Wound Cleanser -Foul Odor after Cleansing No No -Wound Comment(s) Right foot INCINSION WELL incision well APPPROXIMATED approximated AND JEWELL sutures intact INTACT . 3 pressure TWO AREAS NOTED areas eschar ON RIGHT HEEL noted on PRESSURE lateral right RELATED AND ON foot . right DORSAL OF LEFT 2nd toe FOOT necrotic . WC - Nurse 2 - General Ulcer CM Notes Start: 05/29/24 10:49 Freq: Status: Active Protocol: Activity Type Activity Date Activity User E-sign Co-sign Detail Recorded Client Recorded Date Recorded By Document 05/29/24 11:12 [id number] 05/29/24 11:19 Document 06/12/24 11:44 [id number] 06/12/24 11:45 Document 06/19/24 12:04 [id number] 06/19/24 12:05 05/29/24 06/12/24 06/19/24 11:12 11:44 12:04 Wound Center Nurse 2 #1 RT FT POST-OP -Correct Patient Yes No No -Correct Side, Site, Position No No No -Correct Procedure No No No -Procedure Performed No No No -Wound/Ulcer Outcome Amputation Not Healed Not Healed Anticipated -Debridement - Subq, 1st 20sq cm No Pain Scale: 0-10 Numeric Is Patient Pain Free? Yes Yes Yes - Nurse 3 - General Ulcer D/C NN Start: 05/29/24 10:49 Freq: Status: Active Protocol: Activity Type Activity Date Activity User E-sign Co-sign Detail Recorded Client Recorded Date Recorded By Document 05/29/24 11:50 KW [id number] 05/29/24 11:50 KW Document 06/12/24 12:07 RB [id number] 06/12/24 12:08 RB Edit Result 06/12/24 12:07 RB (1) [id number] 06/12/24 12:24 RB (1) #1 RT FT POST-OP - Wound Comment(s) => nurses hat to heels bilat 05/29/24 06/12/24 11:50 12:07 Wound Care Center Nurse 3 #1 RT FT POST-OP -Ulcer Cleansing Rinsed/ Irrigated with Saline -Primary Dressing Applied NonAdherent Contact Layer -Other Dressing betadine BACTRACIN painted to ulcers -Primary Dressing Covered/Secured with Dry Gauze & Dry Gauze,Dry Roll Gauze, Gauze & Roll Secured with Gauze,Secured Tape with Tape -Other Covering abd -Wound Comment(s) nurses hat to heels bilat Treatment Response Procedure Tolerated Well Pain Scale: 0-10 Numeric Is Patient Pain Free? Yes Yes WC - Visit Discharge Discharge Condition Stable Stable Ambulatory Status Wheelchair Wheelchair Transportation Private Auto Medication Reconcilliation completed & No No provided to patient/care provider Clinical Summary of Care Provided Yes Yes Assessment/Plan Assessment/Plan (1) Other acute osteomyelitis, right ankle and foot: CODE(S): M86.171 - Other acute osteomyelitis, right ankle and foot PLAN: Exam performed. Jewell removed today. Full-thickness necrosis noted to the central aspect of the plantar flap distally. No debridement performed. Still awaiting demarcation as there is some erythema along the plantar flap. Some necrosis to the lateral right foot wound. Dry, stable. Patient following with vascular surgery closely. Patient maintain nonweightbearing to right lower extremity. Redressed surgical site with antibiotic ointment Adaptic 4 x 4's Kerlix and dry sterile dressing. Discussed dependency and avoidance of compression to allow for adequate blood flow to the area. Discussed that patient will likely require local wound care to allow for definitive healing moving forward however this time we are letting everything demarcate and stabilize before we perform any formal debridements. Patient will follow-up on a weekly basis. (2) Other specified peripheral vascular diseases: CODE(S): I73.89 - Other specified peripheral vascular diseases
== END 2024-06-22 23:59 | disposition home or self-care (01) ==
LOC: WC 11:15
PROVIDERS: PCP Family Medicine; Referring Provider Student in an Organized Health Care Education/Training Program; Visit Provider Podiatrist
DX: E11.69 Type 2 diabetes mellitus with other specified complication (principal); L97.409 Non-pressure chronic ulcer of unspecified heel and midfoot with unspecified severity; M86.171 Other acute osteomyelitis, right ankle and foot; E11.42 Type 2 diabetes mellitus with diabetic polyneuropathy; Z89.421 Acquired absence of other right toe(s); I73.89 Other specified peripheral vascular diseases; Z99.2 Dependence on renal dialysis
CPT/HCPCS: 99214; G0463

== ENCOUNTER 2024-07-02 10:53 | Observation (INO) | payer MEDICARE, SELFPAY ==
[2024-07-02] VITALS (8 sets, daily range): BP systolic 115–259; BP diastolic 47–56; PULSE 50–58; RESP 14–24; TEMP 36.6–37.1; O2SAT 94–98; BMI 35.9; BMI 33.0; BMI 32.9; BMI 32.5
--- NOTE | 2024-07-02 11:37 | EKG12_ITS ---
Test Reason : GENERAL Blood Pressure : */* mmHG Vent. Rate : 46 BPM Atrial Rate : * BPM P-R Int : * ms QRS Dur : 108 ms QT Int : 462 ms P-R-T Axes : * 4 82 degrees QTcB Int : 404 ms Atrial fibrillation with slow ventricular response Cannot rule out Anterior infarct , age undetermined Abnormal ECG Confirmed by Warren Jackson ([id number]), sound editor GEE DUNCAN ([id number]) on 07/03/2024 10:06:49 AM Referred By: Confirmed By: Warren Jackson
--- NOTE | 2024-07-02 11:41 | EDS_ITS ---
HPI History of Present Illness Chief Complaint: Abn Labs Informant: patient, family and PCP Narrative Narrative: 89-year-old male [facility] abnormal labs and missed dialysis. Patient typically receives dialysis Tuesday, , Tuesday. He missed dialysis on Tuesday due to trouble with his Shirley lift. He was seen by nurse practitioner this morning and labs were obtained. He has a potassium of 5.9. He was hypotensive per nurse practitioner this morning. He denies shortness of breath. Nurse practitioner attempted to get him dialysis at his typical facility today and they are unable to get him in today. 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 ESRD (end stage renal disease) Type 2 diabetes mellitus with foot ulcer Diabetes mellitus with diabetic 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 Pre-op testing Loose, teeth Wears glasses Cancer Dialysis patient Kidney disease Non-smoker Edema Syncope Chronic diastolic (congestive) heart failure (04/18/20) Paroxysmal atrial fibrillation Sinus bradycardia Type 2 diabetes mellitus Hyperkalemia Swelling of both lower extremities HLD (hyperlipidemia) Left bundle-branch block 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 Abnormal electrocardiogram Home Medications ?Medication ?Instructions ?Recorded ?Last Taken ?Type cholecalciferol (vitamin D3) 25 5,000 unit PO DAILY gibson pplement #30 05/02/20 06/05/24 Rx mcg (1,000 unit) tablet tabs aspirin 81 mg tablet,delayed 81 mg PO DAILY heart heal th 07/01/20 06/05/24 History release (Adult Aspirin Regimen) torsemide 100 mg tablet 100 mg PO MOWEFR water pill 04/14/24 06/04/24 History acetaminophen 325 mg tablet 650 mg (2 x 325 mg) PO Q6H PRN PRN 04/24/24 Unknown Rx Pain 1-10 Or Fever >100.7 #0 tabs insulin glargine 100 unit/mL (3 20 unit (0.2 mL) subcu t DINNER 04/24/24 06/05/24 Rx mL) subcutaneous pen diabetes 30 days #0 mL insulin lispro 100 unit/mL 10 unit (0.1 mL) subcut TID AC #0 mL 04/24/24 Unknown Rx subcutaneous pen (Humalog KwikPen (U-100) Insulin) insulin lispro 100 unit/mL See Protocol subcut ACHS dm 05/04/24 Unknown History subcutaneous pen (Humalog KwikPen (U-100) Insulin) arginine 7 gram-glutamine 7 1 ea PO BID 05/22/2406/05 History gram-calcium HMB 1.5 gram oral powder pack (Dustin) nystatin 100,000 unit/gram topical 1 applic topical DA DIAMANTE 05/22/24 06/05/24 His tory cream nut.tx.gluc.intol,lac-free,soy 240 ml PO DAILY 5 06/05/24 History (Glucerna oral liquid) sennosides 8.6 mg-docusate sodium 1 tab-cap PO BID PRN PRN 06/04/24 06/05/24 History 50 mg tablet (Stimulant Laxative Constipation Plus) oxycodone-acetaminophen 2.5 mg-325 1 tab PO Q8H PRN pa in 7 days #20 06/08/24 Unknown Rx mg tablet (Percocet) tabs clopidogrel 75 mg tablet 75 mg PO DAILY 07/02/24 Unkn own History Allergy/AdvReac Type Severity Reaction Status Date / Time pioglitazone (From Actos) Allergy fatigue Verified 07/02/24 11:03 simvastatin (From Zocor) Allergy myalgia Verified 07/02/24 11:03 sitagliptin (From Januvia) Allergy unknown Verified 07/02/24 11:03 Family History Mother Hypertension Father Diabetes COPD (chronic obstructive pulmonary disease) Surgical History Hx of foot surgery History of cataract extraction History of ligation of vein History of arteriovenostomy for renal dialysis History of inguinal hernia repair History of appendectomy Social History Smoking Status: Never smoker alcohol intake: never substance use type: does not use caffeine: Yes Type: coffee Number of servings: 1 what type of physical activity do you participate in: none seatbelt use: always do you feel safe at home: Yes ROS ROS ED Constitutional Constitutional ED: Denies fever(s) Eyes Eyes: Denies change in vision ENT ENT ED: Denies rhinorrhea or sore throat Cardiovascular Cardiovascular: Denies chest pain or palpitations Respiratory/Chest Respiratory/Chest: Denies cough or dyspnea Gastrointestinal Gastrointestinal: Denies abdominal pain, diarrhea, nausea or vomiting Genitourinary Genitourinary ED: Denies dysuria Musculoskeletal Musculoskeletal: Denies myalgias Integumentary Denies rash Neurologic Neurologic: Denies headache(s) Psychiatric Psychiatric: Denies suicidal thoughts EXAM Physical Exam Const Vital Signs: 07/02/24 10:54 Temperature 98.7 F Temperature Source Temporal Pulse Rate 58 L Respiratory Rate 20 H Blood Pressure 133/48 H Blood Pressure Mean 76 Pulse Ox 94 Oxygen Delivery Method Room Air Positive well nourished and well developed General Appearance ED: well developed HEENT Reports normocephalic and head/scalp atraumatic Eyes PERRL and EOMs intact bilaterally Neck supple General: Negative for tenderness Chest Wall inspection of chest normal Resp normal respiratory effort and clear to auscultation bilaterally Cardio regular rate and regular rhythm GI non-tender and non-distended Palpation: soft; Negative for guarding or rebound tenderness present no CVA tenderness Extremity normal to inspection Extremity Narrative: Fistula left upper extremity. Right partial foot amputation, dressing intact Neuro oriented x3 Sensorium / Orientation: alert Psych mental status grossly normal MDM MDM MDM Narrative Medical decision making narrative: 89-year-old male presenting due to abnormal labs and missed dialysis. CBC shows hemoglobin of 8.0, at his baseline. Chemistries show potassium 5.9, sodium 130. BUN 126, creatinine 7.24. Glucose 134. EKG shows atrial fibrillation with slow ventricular response, rate of 46. Family states that his heart rate runs low at baseline. Discussed with hospitalist for observation for dialysis. History & Record Review Discussion w/independent historian: Patient and Family Additional record(s) reviewed:: Prior inpatient record EKG Initial EKG: Attestation: I personally reviewed and interpreted this EKG as follows: Interpretation: Atrial Fibrillation Management Discussion w/another healthcare provider: Hospitalist Discharge Plan Triage Chief Complaint: Abn Labs ED Provider: Modesta Cano Dx/Rx/DC Orders Clinical Impression: Acute hyperkalemia, End stage renal disease Prescriptions: No Action cholecalciferol (vitamin D3) 1,000 UNIT tablet 5,000 unit PO DAILY Qty: 30 0RF torsemide 100 mg tablet 100 mg PO MOWEFR Patient Comments: on non-dialysis days acetaminophen 325 mg Tablet 650 mg PO Q6H PRN PRN (Reason: Pain 1-10 Or Fever >100.7) Qty: 0 0RF insulin lispro [Humalog KwikPen Insulin] 100 unit/mL Insulin Pen 10 unit subcut TIDAC Qty: 0 0RF Rx Instructions: Hold if glucose less than 130 mg/dl insulin glargine 100 unit/mL (3 mL) insulin pen 20 unit SC DINNER 30 Days Qty: 0 0RF Rx Instructions: Hold if glucose less than 130 mg/dl Dustin 7-7-1.5 gram powder in packet 1 ea PO BID nystatin 100,000 unit/gram cream 1 applic topical DAILY clopidogrel 75 mg tablet 75 mg PO DAILY Patient Comments: [NO ORIGINAL SIG] insulin lispro [Humalog KwikPen Insulin] 100 unit/mL Insulin Pen See Protocol subcut ACHS Protocol: 3. Sliding Scale Insulin Med Dosing Condition: 150-189 mg/dl = 1 unit Condition: 190-229 mg/dl = 2 units Condition: 230-269 mg/dl = 3 units Condition: 270-309 mg/dl = 4 units Condition: 310-349 mg/dl = 5 units Condition: 350-399 mg/dl = 6 units Condition: 400-449 mg/dl = 7 units Condition: Greater than 449 call physician Protocol Text: Suggested for: - Patients on Total Daily Insulin Dose of 37-55 units - Obese, infected, or steroid patients MEDIUM DOSING ALGORITHIM Rx Instructions: 150-189 1 unit,190-229 2 unit, 230-269 3 unit, 270-309 4 unit, 310-349 5 unit, 350-399 6 unit, 400-449 7 unit, 450-500 call physicion Glucerna Liquid 240 ml PO DAILY sennosides-docusate sodium [Stimulant Laxative Plus] 8.6-50 mg Tablet 1 tab-cap PO BID PRN PRN (Reason: Constipation) aspirin [Adult Aspirin Regimen] 81 mg tablet,delayed release (DR/EC) 81 mg PO DAILY oxycodone-acetaminophen [Percocet] 2.5-325 mg tablet 1 tab PO Q8H PRN (Reason: pain) 7 Days Qty: 20 0RF Primary Care Provider: Nando Wiggins Referrals: Nando Wiggins MD [Primary Care Provider] - Print Language: Turkish Disposition Disposition: Acute Care Hospital [facility]
--- NOTE | 2024-07-02 13:58 | CASEMGMT ---
Patient is from [facility]. Per physician the plan is to dialyze patient and then discharge him back to the snf. SW sent ED physician note to [facility] via [facility] and let them know the plan is to send patient back today after dialysis. Plan: d/c back to [facility]. Amy VALDERRAMA
[2024-07-02] MEDS: PureFlow B 2K Dialysis Soln 1 BAG 6 BAG PF (14:14)
[2024-07-02] MEDS: 0.9% Normal Saline 1,000 ML IV.SOLN. 1000 ML OPERA.SITE (14:14)
--- NOTE | 2024-07-02 15:12 | PCM.HP.STD ---
HPI - General General Date of Admission: 07/02/24 Date of Service: 07/02/24 Chief Complaint: Abnormal labs HPI Narrative PERLA LUBIN, is a 89 M who presents to the emergency room at [facility] after being sent in from a local extended care facility at which he resides due to abnormal labs. He is a chronic dialysis patient and was not able to undergo dialysis on Tuesday due to a faulty Shirley pad which was [facility] with the patient from the prison to help the patient transfer to a dialysis bed at the dialysis facility. Due to this fact, patient was not dialyzed and his next dialysis day is tomorrow. 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 Labs obtained in the emergency room included a CBC which was abnormal for hemoglobin of 8, patient's sodium was 130, BUN was 126, creatinine was 7.24 and potassium was 5.9. An effort was made to send the patient to the dialysis clinic today from the emergency room but the patient did not have a Shirley pad and so the patient had to be placed in observation status and dialyzed in the hospital today. 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 ESRD (end stage renal disease) Type 2 diabetes mellitus with foot ulcer Diabetes mellitus with diabetic 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 Pre-op testing Loose, teeth Wears glasses Cancer Dialysis patient Kidney disease Non-smoker Edema Syncope Chronic diastolic (congestive) heart failure (04/18/20) Paroxysmal atrial fibrillation Sinus bradycardia Type 2 diabetes mellitus Hyperkalemia Swelling of both lower extremities HLD (hyperlipidemia) Left bundle-branch block 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 Abnormal electrocardiogram Home Medications ?Medication ?Instructions ?Recorded ?Last Taken ?Type cholecalciferol (vitamin D3) 25 5,000 unit PO DAILY supplement #30 05/02/20 06/05/24 Rx mcg (1,000 unit) tablet tabs aspirin 81 mg tablet,delayed 81 mg PO DAILY heart health 07/01/20 06/05/24 History release (Adult Aspirin Regimen) torsemide 100 mg tablet 100 mg PO MOWEFR water pill 04/14/24 06/04/24 History acetaminophen 325 mg tablet 650 mg (2 x 325 mg) PO Q6H PRN PRN 04/24/24 Unknown Rx Pain 1-10 Or Fever >100.7 #0 tabs insulin glargine 100 unit/mL (3 20 unit (0.2 mL) subcut DINNER 04/24/24 06/05/24 Rx mL) subcutaneous pen diabetes 30 days #0 mL insulin lispro 100 unit/mL 10 unit (0.1 mL) subcut TIDAC #0 mL 04/24/24 Unknown Rx subcutaneous pen (Humalog KwikPen (U-100) Insulin) insulin lispro 100 unit/mL See Protocol subcut ACHS dm 05/04/24 Unknown History subcutaneous pen (Humalog KwikPen (U-100) Insulin) arginine 7 gram-glutamine 7 1 ea PO BID 05/22/24 06/05/24 History gram-calcium HMB 1.5 gram oral powder pack (Dustin) nystatin 100,000 unit/gram topical 1 applic topical DAILY 05/22/24 06/05/24 History cream nut.tx.gluc.intol,lac-free,soy 240 ml PO DAILY 06/04/24 06/05/24 History (Glucerna oral liquid) sennosides 8.6 mg-docusate sodium 1 tab-cap PO BID PRN PRN 06/04/24 06/05/24 History 50 mg tablet (Stimulant Laxative Constipation Plus) oxycodone-acetaminophen 2.5 mg-325 1 tab PO Q8H PRN pain 7 days #20 06/08/24 Unknown Rx mg tablet (Percocet) tabs clopidogrel 75 mg tablet 75 mg PO DAILY 07/02/24 Unknown History Allergy/AdvReac Type Severity Reaction Status Date / Time pioglitazone (From Actos) Allergy fatigue Verified 07/02/24 11:03 simvastatin (From Zocor) Allergy myalgia Verified 07/02/24 11:03 sitagliptin (From Januvia) Allergy unknown Verified 07/02/24 11:03 Family History Mother Hypertension Father Diabetes COPD (chronic obstructive pulmonary disease) Surgical History Hx of foot surgery History of cataract extraction History of ligation of vein History of arteriovenostomy for renal dialysis History of inguinal hernia repair History of appendectomy Social History Smoking Status: Never smoker alcohol intake: never substance use type: does not use caffeine: Yes Type: coffee Number of servings: 1 what type of physical activity do you participate in: none seatbelt use: always do you feel safe at home: Yes ROS Constitutional Constitutional: Denies anorexia, change in weight, chills, fatigue, fever(s), malaise, night sweats or weakness Eyes Eyes: Denies blurry vision, change in vision, discharge from eye(s) or eye pain Cardiovascular Cardiovascular: Denies chest pain, claudication, dyspnea on exertion, edema or palpitations Respiratory/Chest Respiratory/Chest: Denies cough, hemoptysis, shortness of breath at rest or shortness of breath with exertion Gastrointestinal Gastrointestinal: Denies abdominal pain, constipation, diarrhea, hematemesis, hematochezia, melena, nausea or vomiting Genitourinary Genitourinary: Denies dysuria, hematuria, urinary frequency, urinary hesitancy, urinary incontinence or urinary urgency Musculoskeletal Musculoskeletal: Denies back pain, joint pain, joint stiffness, joint swelling, myalgias or neck pain Neurologic Neurologic: Denies abnormal gait, abnormal speech, dizziness, focal weakness, headache(s), loss of vision, numbness, other visual disturbances, paresthesias, syncope or tingling Psychiatric Psychiatric: Denies anxiety, cognitive impairment, depression, irritability, mood swings or suicidal ideation Endocrine Endocrinology: Denies change in body appearance, cold intolerance, excessive sweating, heat intolerance, polydipsia or polyuria Hematologic/Lymphatic Hematologic/Lymphatic: Denies none, anemia, easy bleeding, easy bruising or lymphadenopathy Allergic/Immunologic Allergic/Immunologic: Denies rhinitis, urticaria, eczemia or asthma Vital Signs Vital Signs Vital Signs: 07/02/24 10:54 07/02/24 12:55 07/02/24 13:47 Temperature 98.7 F 98.4 F 97.8 F Temperature Source Temporal Temporal Pulse Rate 58 L 50 L 53 L Respiratory Rate 20 H 24 H 15 Respiratory Effort Normal Non-Labored Blood Pressure 133/48 H 132/55 H 135/53 H Blood Pressure Mean 76 80 80 Blood Pressure Source Monitor Blood Pressure Position Semi-Fowlers Blood Pressure Location Right Arm Pulse Ox 94 98 97 Oxygen Delivery Method Room Air Room Air 07/02/24 14:16 07/02/24 14:47 Temperature Temperature Source Pulse Rate 54 L 56 L Respiratory Rate 15 15 Respiratory Effort Blood Pressure 146/55 H 147/56 H Blood Pressure Mean 85 86 Blood Pressure Source Monitor Monitor Blood Pressure Position Semi-Fowlers Semi-Fowlers Blood Pressure Location Right Arm Right Arm Pulse Ox Oxygen Delivery Method Room Air Room Air Weight Weight: 95.4 kg Body Mass Index (BMI) 32.9 Physical Exam Const alert, oriented x3 and no apparent distress General Appearance: cooperative, well kempt and well developed Orientation / Consciousness: awake, oriented to person, oriented to place and oriented to time HEENT normocephalic, head/scalp atraumatic and moist oral mucous membranes Eyes PERRL, EOMs intact bilaterally and conjunctivae normal Neck supple, no JVD, thyroid normal and no carotid bruits General: trachea midline Resp normal respiratory effort, no retractions, no use of accessory muscles and clear to auscultation bilaterally Auscultation: Negative for rales, rhonchi or wheezes Cardio regular rate, regular rhythm, S1 normal heart sound, S2 normal heart sound, no murmurs, no rub and no gallops GI normal to inspection, nondistended, normoactive bowel sounds, soft to palpation, non-tender and non-distended Extremity Extremity Narrative: Right foot is wrapped with surgical dressing at this time, this was not removed for examination of the foot Neuro oriented x3, CN's II-XII intact bilaterally and no focal motor deficits Sensorium / Orientation: awake and alert Speech: speech normal Psych affect normal Assessment & Plan Assessment/Plan (1) End stage renal disease: PLAN: Plan 1. Hyperkalemia-patient will be placed in observation status and undergo dialysis today, BMP will be repeated after dialysis #2 end-stage renal disease currently on dialysis-patient will be dialyzed today, he will undergo dialysis tomorrow at the dialysis center #3 peripheral arterial disease-complicates care, management, recovery, and prognosis #4 type 2 diabetes-blood sugars will be monitored, sliding scale insulin will be given as needed #5 recent right transmetatarsal amputation-patient is being followed by podiatry Total clinical time spent by myself addressing the patient's medical issues, reviewing all of his data, and collaborating with patient's care team: 55 minutes Charges/Coding Visit Charges Inpatient E&M: 11687 Init Hosp L2
[2024-07-02] MEDS: Insulin Glargine-YFGN 100 UNIT/ML Pen 20 UNIT SC (17:13)
[2024-07-02] MEDS: Insulin Lispro 100 UNIT/ML INSULN.PEN SC (17:21)
[2024-07-02] MEDS: Insulin Lispro 100 UNIT/ML INSULN.PEN 10 UNIT SC (17:22)
[2024-07-02 17:31] LABS: Anion Gap 9 (5-15); BUN 84 mg/dL (7-18); BUN/Creat Ratio 18.1 RATIO (10-20); Calcium,Total 9.1 mg/dL (8.5-10.1); Chloride 98 mmol/L (98-107); Creatinine, Serum 4.63 mg/dL (0.70-1.30); EST Glomerular Filtration Rate 13 mL/min (>60); Est Glom Filt Rate - Afr Amer 16 mL/min (>60); Glucose 134 mg/dL (74-106); Potassium 4.3 mmol/L (3.5-5.1); Sodium Level 133 mmol/L (136-145)
[2024-07-02 17:43] LABS: Bedside Glucose 230 mg/dL (74-106)
--- NOTE | 2024-07-02 18:34 | PCM.TXEXTCAR ---
Diet Diet Order/Speech Therapy: 07/02/24 13:39 Diet: Cardiac: Calorie-Controlled Food consistency:: Regular Liquid Consistency:: Regular/Thin How many daily calories?: 1800 calorie Routine Orders/Code Status Routine Lab Work: - (Maintain fingerstick blood sugars with sliding scale insulin as before) DC O2, CPAP, BIPAP needs Home O2 Discharge instructions: No Therapies Weight Bearing: Non weight bearing (Right foot) Physical Therapy: Eval and Treat Occupational Therapy: Eval and Treat Problem/Diagnosis (1) End stage renal disease: Status: Acute Code(s): N18.6 - End stage renal disease Plan 1. Hyperkalemia-patient will be placed in observation status and undergo dialysis today, BMP will be repeated after dialysis #2 end-stage renal disease currently on dialysis-patient will be dialyzed today, he will undergo dialysis tomorrow at the dialysis center #3 peripheral arterial disease-complicates care, management, recovery, and prognosis #4 type 2 diabetes-blood sugars will be monitored, sliding scale insulin will be given as needed #5 recent right transmetatarsal amputation-patient is being followed by podiatry Total clinical time spent by myself addressing the patient's medical issues, reviewing all of his data, and collaborating with patient's care team: 55 minutes Allergies/Procedures Done in Hospital Allergies pioglitazone (From Actos) Allergy (Verified 07/02/24 11:03) fatigue simvastatin (From Zocor) Allergy (Verified 07/02/24 11:03) myalgia sitagliptin (From Januvia) Allergy (Verified 07/02/24 11:03) unknown Procedures: Dialysis Type of Care/Length of Stay Estimated LOS: Convalescent Care Less Than 30 days Type of Care Needed: Skilled Rehab Potential: Fair Prognosis: Fair Additional Orders/Day of Discharge Additional Orders: Continue wound care as before H&P will serve as current which was dated: 07/02/24 Day of Discharge: 07/02/24 Discharge Plan Admission Admit Date/Time: 07/02/24 12:56 Primary Reason for Your Visit: Hyperkalemia, end-stage renal disease requiring dialysis Attending Provider: Jarvis Oliveros Primary Care Provider: Nando Wiggins Consulting Providers: Manuel Alva Discharge Orders/Prescriptions Prescriptions: Continued cholecalciferol (vitamin D3) 1,000 UNIT tablet 5,000 unit PO DAILY Qty: 30 0RF torsemide 100 mg tablet 100 mg PO MOWEFR Patient Comments: on non-dialysis days acetaminophen 325 mg Tablet 650 mg PO Q6H PRN PRN (Reason: Pain 1-10 Or Fever >100.7) Qty: 0 0RF insulin lispro [Humalog KwikPen Insulin] 100 unit/mL Insulin Pen 10 unit subcut TIDAC Qty: 0 0RF Rx Instructions: Hold if glucose less than 130 mg/dl insulin glargine 100 unit/mL (3 mL) insulin pen 20 unit SC DINNER 30 Days Qty: 0 0RF Rx Instructions: Hold if glucose less than 130 mg/dl Dustin 7-7-1.5 gram powder in packet 1 ea PO BID nystatin 100,000 unit/gram cream 1 applic topical DAILY clopidogrel 75 mg tablet 75 mg PO DAILY Patient Comments: [NO ORIGINAL SIG] insulin lispro [Humalog KwikPen Insulin] 100 unit/mL Insulin Pen See Protocol subcut ACHS Protocol: 3. Sliding Scale Insulin Med Dosing Condition: 150-189 mg/dl = 1 unit Condition: 190-229 mg/dl = 2 units Condition: 230-269 mg/dl = 3 units Condition: 270-309 mg/dl = 4 units Condition: 310-349 mg/dl = 5 units Condition: 350-399 mg/dl = 6 units Condition: 400-449 mg/dl = 7 units Condition: Greater than 449 call physician Protocol Text: Suggested for: - Patients on Total Daily Insulin Dose of 37-55 units - Obese, infected, or steroid patients MEDIUM DOSING ALGORITHIM Rx Instructions: 150-189 1 unit,190-229 2 unit, 230-269 3 unit, 270-309 4 unit, 310-349 5 unit, 350-399 6 unit, 400-449 7 unit, 450-500 call physicion Glucerna Liquid 240 ml PO DAILY sennosides-docusate sodium [Stimulant Laxative Plus] 8.6-50 mg Tablet 1 tab-cap PO BID PRN PRN (Reason: Constipation) aspirin [Adult Aspirin Regimen] 81 mg tablet,delayed release (DR/EC) 81 mg PO DAILY oxycodone-acetaminophen [Percocet] 2.5-325 mg tablet 1 tab PO Q8H PRN (Reason: pain) 7 Days Qty: 20 0RF Referrals / Follow Up: Nando Wiggins MD [Primary Care Provider] - Disposition Disposition (needs filled in before D/C Order can be placed): Senior Living Facility
--- NOTE | 2024-07-02 18:48 | DS.PCM_ITS ---
Providers Date of Admission: 07/02/24 Date of Discharge: 07/02/24 Primary Care Physician: Dr. Nando Wiggins MD Consultations 07/02/24 13:39 Consult: Nephrology Routine Consulting Provider: Manuel Alva Reason for Consult: esrd EMERGENT Consult: No MD Notified: Yes Date Notified: 07/02/24 Time Notified: 13:00 Method of Notification: Verbal Reason For Visit: RENAL FAILURE, HYPERKALEMIA Diagnosis Discharge Diagnosis (1) End stage renal disease: Status: Acute Code(s): N18.6 - End stage renal disease Plan 1. Hyperkalemia-patient will be placed in observation status and undergo dialysis today, BMP will be repeated after dialysis #2 end-stage renal disease currently on dialysis-patient will be dialyzed today, he will undergo dialysis tomorrow at the dialysis center #3 peripheral arterial disease-complicates care, management, recovery, and prognosis #4 type 2 diabetes-blood sugars will be monitored, sliding scale insulin will be given as needed #5 recent right transmetatarsal amputation-patient is being followed by podiatry Total clinical time spent by myself addressing the patient's medical issues, reviewing all of his data, and collaborating with patient's care team: 55 minutes Medications at Discharge Home Medications cholecalciferol (vitamin D3) 25 mcg (1,000 unit) tablet 5,000 unit PO DAILY supplement #30 tabs 05/02/20 aspirin 81 mg tablet,delayed release (Adult Aspirin Regimen) 81 mg PO DAILY heart health 07/01/20 torsemide 100 mg tablet 100 mg PO MOWEFR water pill 04/14/24 acetaminophen 325 mg tablet 650 mg (2 x 325 mg) PO Q6H PRN PRN Pain 1-10 Or Fever >100.7 #0 tabs 04/24/24 insulin glargine 100 unit/mL (3 mL) subcutaneous pen 20 unit (0.2 mL) subcut DINNER diabetes 30 days #0 mL 04/24/24 insulin lispro 100 unit/mL subcutaneous pen (Humalog KwikPen (U-100) Insulin) 10 unit (0.1 mL) subcut TIDAC #0 mL 04/24/24 insulin lispro 100 unit/mL subcutaneous pen (Humalog KwikPen (U-100) Insulin) See Protocol subcut ACHS dm 05/04/24 arginine 7 gram-glutamine 7 gram-calcium HMB 1.5 gram oral powder pack (Dustin) 1 ea PO BID 05/22/24 nystatin 100,000 unit/gram topical cream 1 applic topical DAILY 05/22/24 nut.tx.gluc.intol,lac-free,soy (Glucerna oral liquid) 240 ml PO DAILY 06/04/24 sennosides 8.6 mg-docusate sodium 50 mg tablet (Stimulant Laxative Plus) 1 tab- cap PO BID PRN PRN Constipation 06/04/24 oxycodone-acetaminophen 2.5 mg-325 mg tablet (Percocet) 1 tab PO Q8H PRN pain 7 days #20 tabs 06/08/24 clopidogrel 75 mg tablet 75 mg PO DAILY 07/02/24 Hospital Course Operations None Procedures Dialysis Summary of Care Provided Minutes Spent on Discharge: 70 Hospital Course: This 89-year-old white male was seen in the emergency room at [facility] after being sent in from a local extended care facility at which he is located getting skilled services due to abnormal lab work. Patient was supposed under go to dialysis 48 hours ago but due to a lack of a Shirley lift pad was not able to be dialyzed on 06/30/2024 and was returned to the intermediate without dialysis. Labs were drawn this morning at the intermediate which were abnormal and he was sent in for evaluation. Labs in the emergency room showed an elevated creatinine BUN and potassium, patient was in no respiratory distress, initially arrangements were made for the patient to go to presenting his dialysis center but there was not a Shirley lift transported with him to the emergency room so he could not undergo dialysis as an outpatient that day and had to be placed in observation status in the hospital. Patient was transferred to PCU and underwent dialysis, after dialysis was finished the patient was able to return to the extended care facility for further services. On 07/02/2024, patient was seen and examined: On examination he appeared in good health and spirits. Vital signs as documented. Skin warm and dry and without overt rashes. Neck without JVD, neck was supple, trachea midline, thyroid was normal. Lungs clear bilaterally, normal air movement was noted. Heart exam notable for regular rhythm, normal sounds and absence of murmurs, rubs or gallops. Abdomen unremarkable and without evidence of organomegaly, masses, or abdominal aortic enlargement. Bowel sounds are present, abdomen is not distended. Extremities nonedematous, no cyanosis was noted, no clubbing was noted. Neuro: Cranial nerves II through XII are grossly intact, no focal motor deficits were noted, sensation to light touch and pinprick intact, motor exam 5/5 throughout. Psych: Patient is alert and oriented x3, he does not appear anxious or depressed, he does not appear agitated. Patient was discharged to the extended care facility on 06/29/2024 in stable condition Weight / BMI Weight Weight: 94.2 kg Body Mass Index (BMI) 32.5 ABG / Lab / Microbiology Data 07/02/24 16:07 Laboratory: Laboratory Results - last 24 hr 07/02/24 16:07: Sodium 133 L, Potassium 4.3, Chloride 98, Carbon Dioxide 26.0, Anion Gap 9, BUN 84 H, Creatinine 4.63 H, Estim Creat Clear Calc 12.30, Est GFR (MDRD) Af Amer 16 L, Est GFR (MDRD) Non-Af 13 L, BUN/Creatinine Ratio 18.1, G lucose 134 H, Calcium 9.1 07/02/24 17:01: POC Glucose 230 H D/C Instructions DC O2, CPAP, BIPAP Needs Home O2 Discharge instructions: No Meaningful Use Info Meaningful Use Meaningful Use Diagnoses (Choose all that apply): None applicable Ischemic Stroke Statin Dosing Therapy Reference: STATIN DOSE THERAPY REFERENCE: * Patients > 75 years receive moderate or high dose statin therapy. * Patients 75 years or YOUNGER should receive HIGH intensity statin dose unless contraindicated. You will be required to document reason for non-treatment if statin daily dose does not meet guidelines. HIGH DOSE STATIN THERAPY DAILY Atorvastatin > than or = to 40 mg Rosuvastatin > than or = to 20 mg Amlodipine + Atorvastatin > than or = to 2.5/40 mg Ezetimibe + Simvastatin 10/80 mg Simvastatin 80mg Discharge Plan Admission Admit Date/Time: 07/02/24 12:56 Primary Reason for Your Visit: Hyperkalemia, end-stage renal disease requiring dialysis Attending Provider: Jarvis Oliveros Primary Care Provider: Nando Wiggins Consulting Providers: Manuel Alva Discharge Orders/Prescriptions Prescriptions: Continued cholecalciferol (vitamin D3) 1,000 UNIT tablet 5,000 unit PO DAILY Qty: 30 0RF torsemide 100 mg tablet 100 mg PO MOWEFR Patient Comments: on non-dialysis days acetaminophen 325 mg Tablet 650 mg PO Q6H PRN PRN (Reason: Pain 1-10 Or Fever >100.7) Qty: 0 0RF insulin lispro [Humalog KwikPen Insulin] 100 unit/mL Insulin Pen 10 unit subcut TIDAC Qty: 0 0RF Rx Instructions: Hold if glucose less than 130 mg/dl insulin glargine 100 unit/mL (3 mL) insulin pen 20 unit SC DINNER 30 Days Qty: 0 0RF Rx Instructions: Hold if glucose less than 130 mg/dl Dustin 7-7-1.5 gram powder in packet 1 ea PO BID nystatin 100,000 unit/gram cream 1 applic topical DAILY clopidogrel 75 mg tablet 75 mg PO DAILY Patient Comments: [NO ORIGINAL SIG] insulin lispro [Humalog KwikPen Insulin] 100 unit/mL Insulin Pen See Protocol subcut ACHS Protocol: 3. Sliding Scale Insulin Med Dosing Condition: 150-189 mg/dl = 1 unit Condition: 190-229 mg/dl = 2 units Condition: 230-269 mg/dl = 3 units Condition: 270-309 mg/dl = 4 units Condition: 310-349 mg/dl = 5 units Condition: 350-399 mg/dl = 6 units Condition: 400-449 mg/dl = 7 units Condition: Greater than 449 call physician Protocol Text: Suggested for: - Patients on Total Daily Insulin Dose of 37-55 units - Obese, infected, or steroid patients MEDIUM DOSING ALGORITHIM Rx Instructions: 150-189 1 unit,190-229 2 unit, 230-269 3 unit, 270-309 4 unit, 310-349 5 unit, 350-399 6 unit, 400-449 7 unit, 450-500 call physicion Glucerna Liquid 240 ml PO DAILY sennosides-docusate sodium [Stimulant Laxative Plus] 8.6-50 mg Tablet 1 tab-cap PO BID PRN PRN (Reason: Constipation) aspirin [Adult Aspirin Regimen] 81 mg tablet,delayed release (DR/EC) 81 mg PO DAILY oxycodone-acetaminophen [Percocet] 2.5-325 mg tablet 1 tab PO Q8H PRN (Reason: pain) 7 Days Qty: 20 0RF Referrals / Follow Up: Nando Wiggins MD [Primary Care Provider] - Disposition Disposition (needs filled in before D/C Order can be placed): Half-Way Facility Charges/Coding Visit Charges OBSV E&M: 43743 Observ/hosp same date L2
--- NOTE | 2024-07-02 19:47 | NURSING ---
4 calls placed to [facility] unit to give report on returning pt. Attempts unsuccessful, all callls went to a voice mail
--- NOTE | 2024-07-02 21:17 | NURSING ---
Attempted to call Ashley Pires @ 19:58,20:01,20:05, and 20:31 to give report- no answer. After pt.'s son-in-law contacted facility, nurse Xena called back and i was able to give report.
== END 2024-07-02 21:00 | disposition skilled nursing facility (03) ==
LOC: ED 12:23 → PCU 13:07
PROVIDERS: Admitting Provider Internal Medicine; Emergency Provider Emergency Medicine; PCP Internal Medicine; Visit Provider Internal Medicine
DX: E87.5 Hyperkalemia (principal); N18.6 End stage renal disease; I50.32 Chronic diastolic (congestive) heart failure; I48.91 Unspecified atrial fibrillation; I48.0 Paroxysmal atrial fibrillation; E11.22 Type 2 diabetes mellitus with diabetic chronic kidney disease; Z79.4 Long term (current) use of insulin; E11.42 Type 2 diabetes mellitus with diabetic polyneuropathy; E11.51 Type 2 diabetes mellitus with diabetic peripheral angiopathy without gangrene; Z99.2 Dependence on renal dialysis; E78.5 Hyperlipidemia, unspecified; I25.10 Atherosclerotic heart disease of native coronary artery without angina pectoris; Z79.899 Other long term (current) drug therapy; Z79.82 Long term (current) use of aspirin; Z79.02 Long term (current) use of antithrombotics/antiplatelets; Z89.421 Acquired absence of other right toe(s)
CPT/HCPCS: 80048; 82962; 90937; 93005; 99221; 99284; A4216; G0257; G0378

== ENCOUNTER 2024-07-03 12:44 | Emergency (ER) | payer MEDICARE, SELFPAY ==
[2024-07-03 12:45] VITALS: BP 113/42; PULSE 59; RESP 17; TEMP 37.1; O2SAT 94; BMI 37.7
[2024-07-03 14:03] LABS: Absolute Lymphocyte Count 1.08 X10^3/uL (0.83-4.51); Absolute Neutrophil Count 6.2 X10^3/uL (2.0-7.7); Basophil# 0.02 X10^3/uL; Basophil% 0.2 % (0-1); Eosinophil# 0.03 X10^3/uL; Eosinophils% 0.3 % (0-5); Hematocrit 25.7 % (40-54); Hemoglobin 8.1 g/dL (13.0-16.5); Lymphocyte # 1.08 X10^3/ul (0.83-4.51); Lymphocyte % 12.6 % (19-41); Mean Corp Hgb Conc 31.5 g/dL (32-36); Mean Corpuscular Hgb 29.5 pg (27.0-32.0); Mean Corpuscular Volume 93.5 fL (80-94); Mean Platelet Vol. 11.1 fl (6.2-12.0); Monocyte# 1.24 X10^3/uL; Monocyte% 14.5 % (0-10); NRBC Flagged by Analyzer 0 % (0-5); Neutrophil # 6.15 X10^3/uL (2.7-7.7); Neutrophil % 71.7 % (47-70); Platelet Count 194 K/mm3 (150-450); RBC Distribution Width CV 17.2 % (11.6-14.6); RBC Distribution Width SD 56.7 fl (35.1-43.9); Red Blood Count 2.75 M/mm3 (4.6-6.2); White Blood Count 8.6 K/mm3 (4.4-11.0)
--- NOTE | 2024-07-03 14:17 | EDS_ITS ---
HPI History of Present Illness Chief Complaint: Weakness Detail of Chief Complaint: Sent to ER for weakness and low blood pressure. Informant: patient Onset/Context/Timing Onset: Today Context: Sudden Onset Timing: Intermittent Quality: Patient with hypotensive at dialysis. Location: Dialysis Current Severity: Mild Worsened by: Occurred after dialysis Relieved by: Possibly after receiving fluid bolus, 450 mL Associated Symptoms Associated Symptoms: Generalized weakness and hypotension Narrative Narrative: Patient presents from dialysis because of low blood pressure. He did receive fluid bolus. Blood pressure has improved. Patient was seen in May by podiatry and underwent surgery for acute osteomyelitis. Patient had a midfoot amputation. Patient's dressing was last changed July 01. She states they come out. Does not know when they are scheduled to come out again. He denies any symptoms. He denies fever, chills night sweats. Denies headache, visual, ocular auditory symptoms. He denies chest pain, pressure tightness or heaviness. He denies shortness of breath or orthopnea. He denies abdominal pain, nausea, vomit or diarrhea. 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 ESRD (end stage renal disease) Type 2 diabetes mellitus with foot ulcer Diabetes mellitus with diabetic 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 Pre-op testing Loose, teeth Wears glasses Cancer Dialysis patient Kidney disease Non-smoker Edema Syncope Chronic diastolic (congestive) heart failure (04/18/20) Paroxysmal atrial fibrillation Sinus bradycardia Type 2 diabetes mellitus Hyperkalemia Swelling of both lower extremities HLD (hyperlipidemia) Left bundle-branch block 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 Abnormal electrocardiogram Home Medications ?Medication ?Instructions ?Recorded ?Last Taken ?Type cholecalciferol (vitamin D3) 25 5,000 unit PO DAILY gibson pplement #30 05/02/20 06/05/24 Rx mcg (1,000 unit) tablet tabs aspirin 81 mg tablet,delayed 81 mg PO DAILY heart heal th 07/01/20 06/05/24 History release (Adult Aspirin Regimen) torsemide 100 mg tablet 100 mg PO MOWEFR water pill 04/14/24 06/04/24 History acetaminophen 325 mg tablet 650 mg (2 x 325 mg) PO Q6H PRN PRN 04/24/24 Unknown Rx Pain 1-10 Or Fever >100.7 #0 tabs insulin glargine 100 unit/mL (3 20 unit (0.2 mL) subcu t DINNER 04/24/24 06/05/24 Rx mL) subcutaneous pen diabetes 30 days #0 mL insulin lispro 100 unit/mL 10 unit (0.1 mL) subcut TID AC #0 mL 04/24/24 Unknown Rx subcutaneous pen (Humalog KwikPen (U-100) Insulin) insulin lispro 100 unit/mL See Protocol subcut ACHS dm 05/04/24 Unknown History subcutaneous pen (Humalog KwikPen (U-100) Insulin) arginine 7 gram-glutamine 7 1 ea PO BID 05/22/2406/05 History gram-calcium HMB 1.5 gram oral powder pack (Dustin) nystatin 100,000 unit/gram topical 1 applic topical DA DIAMANTE 05/22/24 06/05/24 History cream nut.tx.gluc.intol,lac-free,soy 240 ml PO DAILY 5 06/05/24 History (Glucerna oral liquid) sennosides 8.6 mg-docusate sodium 1 tab-cap PO BID PRN PRN 06/04/24 06/05/24 History 50 mg tablet (Stimulant Laxative Constipation Plus) oxycodone-acetaminophen 2.5 mg-325 1 tab PO Q8H PRN pa in 7 days #20 06/08/24 Unknown Rx mg tablet (Percocet) tabs clopidogrel 75 mg tablet 75 mg PO DAILY 07/02/24 Unkn own History Allergy/AdvReac Type Severity Reaction Status Date / Time pioglitazone (From Actos) Allergy fatigue Verified 07/03/24 12:48 simvastatin (From Zocor) Allergy myalgia Verified 07/03/24 12:48 sitagliptin (From Januvia) Allergy unknown Verified 07/03/24 12:48 Family History Mother Hypertension Father Diabetes COPD (chronic obstructive pulmonary disease) Surgical History Hx of foot surgery History of cataract extraction History of ligation of vein History of arteriovenostomy for renal dialysis History of inguinal hernia repair History of appendectomy Social History Smoking Status: Never smoker alcohol intake: never substance use type: does not use caffeine: Yes Type: coffee Number of servings: 1 what type of physical activity do you participate in: none seatbelt use: always do you feel safe at home: Yes ROS ROS ED Constitutional Constitutional ED: Reports chills; Denies fever(s), subjective, sweats or weight loss Eyes Eyes: Denies blurry vision or change in vision ENT ENT ED: Denies ear pain, rhinorrhea or sore throat Cardiovascular Cardiovascular: Denies chest pain or palpitations Respiratory/Chest Respiratory/Chest: Denies cough, dyspnea or dyspnea on exertion Gastrointestinal Gastrointestinal: Denies abdominal pain, diarrhea, nausea or vomiting Musculoskeletal Musculoskeletal: Denies arthralgias, back pain or myalgias Integumentary Reports other Details: Foot wound with drainage that is bloody and has an odor Neurologic Neurologic: Reports weakness; Denies headache(s) Hematologic/Lymphatic Hematologic/Lymphatic: Reports systems reviewed and no addt'l complaints, except as documented EXAM Physical Exam Const Vital Signs: 07/03/24 12:45 07/03/24 12:49 07/03/24 14:47 Temperature 98.7 F Temperature Source Oral Pulse Rate 59 L 59 L Respiratory Rate 17 22 H Respiratory Pattern Normal Blood Pressure 113/42 L 110/76 Blood Pressure Mean 65 87 Pulse Ox 94 91 Oxygen Delivery Method Room Air 07/03/24 16:00 Temperature Temperature Source Pulse Rate 59 L Respiratory Rate Respiratory Pattern Blood Pressure 113/47 L Blood Pressure Mean 69 Pulse Ox Oxygen Delivery Method Positive well nourished and well developed General Appearance ED: well developed and NAD HEENT Reports moist mucous membranes Negative for trauma Eyes PERRL and EOMs intact bilaterally General Eye ED: Yes pale conjunctiva; Negative for scleral icterus Neck no lymphadenopathy, supple and no JVD Resp normal respiratory effort and clear to auscultation bilaterally Cardio regular rate, regular rhythm, S1 normal heart sound, S2 normal heart sound and no murmurs GI normal to inspection, nondistended, normoactive bowel sounds, non-tender, non- distended and no masses; Negative for hepatosplenomegaly Back/Spine no CVA tenderness Extremity Extremity Narrative: Dressing was removed. Patient has a wound healing by secondary intention without evidence infection. Will have nurse redress the wound. Neuro oriented x3 and CN's II-XII intact bilaterally Sensorium / Orientation: alert Psych mental status grossly normal Skin Skin Narrative: Foot wound is healing without evidence of infection. MDM MDM MDM Narrative Medical decision making narrative: Suspect patient's hypotension is due to too much volume taken off. However with the recent osteomyelitis open wound that has an odor even though it does not appear infected will obtain CBC to assess white count differential as well as H&H compared to prior. He appears anemic. Also obtain a comprehensive metabolic panel to see if any evidence of any endorgan dysfunction. If none suspect that the hypotension was due to too much fluid removal at dialysis. History & Record Review Additional record(s) reviewed:: Prior inpatient record (Inpatient record and operative note by Dr. Ruelas for osteomyelitis of right foot.) and Prior ED visit Lab Data Attestation: I reviewed the patient's lab results. Lab results narrative: CBC is remarkable for anemia. H&H is approximately patient's baseline. There is slight elevation of neutrophils. Competence metabolic panel with glucose of 161 with a normal CO2 and gap. BUN and creatinine are 37 and 3.04 which is not unexpected since he is a dialysis patient. Labs: Laboratory Results - last 24 hr 07/03/24 13:00 WBC 8.6 RBC 2.75 L Hgb 8.1 L Hct 25.7 L MCV 93.5 MCH 29.5 MCHC 31.5 L RDW Std Deviation 56.7 H RDW Coeff of Frances 17.2 H Plt Count 194 MPV 11.1 Immature Gran % (Auto) 0.700 Neut % (Auto) 71.7 H Lymph % (Auto) 12.6 L [place] % (Auto) 14.5 H Eos % (Auto) 0.3 Baso % (Auto) 0.2 Absolute Neuts (auto) 6.2 Absolute Lymphs (auto) 1.08 Nucleated RBC % 0 Sodium 134 L Potassium 4.2 Chloride 96 L Carbon Dioxide 27.0 Anion Gap 11 BUN 37 H Creatinine 3.04 H Estim Creat Clear Calc 20.19 Est GFR (MDRD) Af Amer 25 L Est GFR (MDRD) Non-Af 21 L BUN/Creatinine Ratio 12.2 Glucose 161 H Calcium 8.1 L Total Bilirubin 0.60 AST 26 ALT 13 L Alkaline Phosphatase 63 Total Protein 7.1 Albumin 2.4 L Globulin 4.7 H Albumin/Globulin Ratio 0.5 L Treatment and Re-Evaluation :: Since his wound does not appear infected he is not febrile and there is no leukocytosis or change in his H&H and his blood pressure has improved with the fluid bolus suspect this was due to hypovolemia. Patient and family have been informed of results and plan for discharge. They had no questions Discharge Plan Triage Chief Complaint: Weakness ED Provider: Eric Franklin Dx/Rx/DC Orders Clinical Impression: Hypotension due to hypovolemia, Essential (primary) hypertension, Type 2 diabetes mellitus, Paroxysmal atrial fibrillation, PAD (peripheral artery di sease), End-stage renal disease on hemodialysis, Open wound of right foot Instructions: ED Low Blood Pressure, All Causes Prescriptions: No Action cholecalciferol (vitamin D3) 1,000 UNIT tablet 5,000 unit PO DAILY Qty: 30 0RF torsemide 100 mg tablet 100 mg PO MOWEFR Patient Comments: on non-dialysis days acetaminophen 325 mg Tablet 650 mg PO Q6H PRN PRN (Reason: Pain 1-10 Or Fever >100.7) Qty: 0 0RF insulin lispro [Humalog KwikPen Insulin] 100 unit/mL Insulin Pen 10 unit subcut TIDAC Qty: 0 0RF Rx Instructions: Hold if glucose less than 130 mg/dl insulin glargine 100 unit/mL (3 mL) insulin pen 20 unit SC DINNER 30 Days Qty: 0 0RF Rx Instructions: Hold if glucose less than 130 mg/dl Dustin 7-7-1.5 gram powder in packet 1 ea PO BID nystatin 100,000 unit/gram cream 1 applic topical DAILY clopidogrel 75 mg tablet 75 mg PO DAILY Patient Comments: [NO ORIGINAL SIG] insulin lispro [Humalog KwikPen Insulin] 100 unit/mL Insulin Pen See Protocol subcut ACHS Protocol: 3. Sliding Scale Insulin Med Dosing Condition: 150-189 mg/dl = 1 unit Condition: 190-229 mg/dl = 2 units Condition: 230-269 mg/dl = 3 units Condition: 270-309 mg/dl = 4 units Condition: 310-349 mg/dl = 5 units Condition: 350-399 mg/dl = 6 units Condition: 400-449 mg/dl = 7 units Condition: Greater than 449 call physician Protocol Text: Suggested for: - Patients on Total Daily Insulin Dose of 37-55 units - Obese, infected, or steroid patients MEDIUM DOSING ALGORITHIM Rx Instructions: 150-189 1 unit,190-229 2 unit, 230-269 3 unit, 270-309 4 unit, 310-349 5 unit, 350-399 6 unit, 400-449 7 unit, 450-500 call physicion Glucerna Liquid 240 ml PO DAILY sennosides-docusate sodium [Stimulant Laxative Plus] 8.6-50 mg Tablet 1 tab-cap PO BID PRN PRN (Reason: Constipation) aspirin [Adult Aspirin Regimen] 81 mg tablet,delayed release (DR/EC) 81 mg PO DAILY oxycodone-acetaminophen [Percocet] 2.5-325 mg tablet 1 tab PO Q8H PRN (Reason: pain) 7 Days Qty: 20 0RF Primary Care Provider: Nando Wiggins Referrals: Nando Wiggins MD [Primary Care Provider] - As Needed Print Language: Egyptian Disposition Disposition: Home, Self Care
[2024-07-03 14:47] VITALS: BP 110/76; PULSE 59; RESP 22; O2SAT 91
[2024-07-03 15:56] LABS: ALB/GLOB Ratio 0.5 RATIO (0.9-2.4); AST(SGOT) 26 U/L (15-37); Alanine Aminotransfer ALT/SGPT 13 U/L (16-61); Albumin, Serum 2.4 g/dL (3.2-5.0); Alkaline Phosphatase 63 U/L (45-117); Anion Gap 11 (5-15); BUN 37 mg/dL (7-18); BUN/Creat Ratio 12.2 RATIO (10-20); Calcium,Total 8.1 mg/dL (8.5-10.1); Chloride 96 mmol/L (98-107); Creatinine, Serum 3.04 mg/dL (0.70-1.30); EST Glomerular Filtration Rate 21 mL/min (>60); Est Glom Filt Rate - Afr Amer 25 mL/min (>60); Estimated Creatinine Clearance 20.19 ml/min; Globulin 4.7 g/dL (2.2-4.2); Glucose 161 mg/dL (74-106); Potassium 4.2 mmol/L (3.5-5.1); Protein, Total 7.1 g/dL (6.4-8.2); Sodium Level 134 mmol/L (136-145)
[2024-07-03 16:00] VITALS: BP 113/47; PULSE 59
--- NOTE | 2024-07-03 16:09 | ED.RN ---
Pt family updated as to why a squad was called to bring pt. here. Family states is level of alert and orientation is per normal. They would like to be discharged home.
--- NOTE | 2024-07-03 16:34 | CM.ED ---
Social work Reason for referral: validation of advance directives Referral source: case find This SW identified patient's need to have advance directives validated. This SW entered patient's room, introducing self and role at [facility]. Patient accepted SW visit. Patient's daughter, Hilaria, and son, Marquis, present at bedside. Patient confirmed having the advance directives on file as accurate. Patient's HCPOA's are as follows: Hilaria Hunt, daughter (primary) and Jack Thompson, son (secondary). Patient denied further needs at this time. Modesta Wynn, DATA CENTER PROJECT MANAGER, ASSESSMENT ANALYST
--- NOTE | 2024-07-03 16:37 | CM.ED ---
Social work Reason for referral: validation of advance directives Referral source: case find This SW identified patient's need to have advance directives validated. This SW entered patient's room, introducing self and role at [facility]. Patient accepted SW visit. Patient's daughter, Hilaria, and son, Marquis, present at bedside. Patient confirmed having the advance directives on file as accurate. Patient's HCPOA's are as follows: Hilaria Hunt, daughter (primary) and Jack Thompson, son (secondary). Patient denied further needs at this time. Modesta Wynn, COUNCILPERSON, MEDICAL TRANSCRIPTIONIST
[2024-07-03 17:24] VITALS: BP 109/43; PULSE 54; PULSE 59; RESP 16; TEMP 36.6; O2SAT 98
== END 2024-07-03 18:36 | disposition home or self-care (01) ==
PROVIDERS: Emergency Provider Emergency Medicine; PCP Internal Medicine; Visit Provider Emergency Medicine
DX: I95.3 Hypotension of hemodialysis (principal); I13.2 Hypertensive heart and chronic kidney disease with heart failure and with stage 5 chronic kidney disease, or end stage renal disease; N18.6 End stage renal disease; E11.621 Type 2 diabetes mellitus with foot ulcer; L97.512 Non-pressure chronic ulcer of other part of right foot with fat layer exposed; I50.32 Chronic diastolic (congestive) heart failure; I48.0 Paroxysmal atrial fibrillation; E11.51 Type 2 diabetes mellitus with diabetic peripheral angiopathy without gangrene; E11.22 Type 2 diabetes mellitus with diabetic chronic kidney disease; E11.42 Type 2 diabetes mellitus with diabetic polyneuropathy; E86.1 Hypovolemia; Z99.2 Dependence on renal dialysis; E78.5 Hyperlipidemia, unspecified; Z79.02 Long term (current) use of antithrombotics/antiplatelets
CPT/HCPCS: 80053; 85025; 99285; A4216

== ENCOUNTER 2024-07-07 17:34 | Emergency (ER) | payer MEDICARE, SELFPAY ==
[2024-07-07 17:34] VITALS: BP 119/46; PULSE 76; RESP 25; O2SAT 92
[2024-07-07 17:35] VITALS: BP 117/49; PULSE 58; RESP 18; TEMP 37.3; O2SAT 93; BMI 33.7
--- NOTE | 2024-07-07 18:07 | EKG12_ITS ---
Test Reason : DIZZINESS Blood Pressure : */* mmHG Vent. Rate : 69 BPM Atrial Rate : * BPM P-R Int : * ms QRS Dur : 112 ms QT Int : 434 ms P-R-T Axes : * 0 95 degrees QTcB Int : 465 ms Atrial fibrillation with premature ventricular or aberrantly conducted complexes Nonspecific ST and T wave abnormality Abnormal ECG Confirmed by DAVID AVILA, BRADY ([id number]), social media editor GEE DUNCAN ([id number]) on 07/09/2024 8:22:44 AM Referred By: Confirmed By: BRADY HERNANDEZ MD
--- NOTE | 2024-07-07 18:08 | EDS_ITS ---
HPI History of Present Illness Chief Complaint: Dizziness Detail of Chief Complaint: Dizziness Informant: patient Narrative Narrative: Patient presents from assisted via EMS for complaint of dizziness. Patient apparently did go to dialysis today and apparently complained of dizziness but he denies that to me. He is a poor historian. He denies fever. He has had a slight cough. Denies chest pain or abdominal pain. He does have a wound VAC on his right foot and has had prior resection of the toes of the foot. Patient has complaint of pain in his right heel but no other significant complaints. 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 ESRD (end stage renal disease) Type 2 diabetes mellitus with foot ulcer Diabetes mellitus with diabetic 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 Pre-op testing Loose, teeth Wears glasses Cancer Dialysis patient Kidney disease Non-smoker Edema Syncope Chronic diastolic (congestive) heart failure (04/18/20) Paroxysmal atrial fibrillation Sinus bradycardia Type 2 diabetes mellitus Hyperkalemia Swelling of both lower extremities HLD (hyperlipidemia) Left bundle-branch block 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 Abnormal electrocardiogram Home Medications ?Medication ?Instructions ?Recorded ?Last Taken ?Type cholecalciferol (vitamin D3) 25 5,000 unit PO DAILY gibson pplement #30 05/02/20 06/05/24 Rx mcg (1,000 unit) tablet tabs aspirin 81 mg tablet,delayed 81 mg PO DAILY heart heal th 07/01/20 06/05/24 H istory release (Adult Aspirin Regimen) torsemide 100 mg tablet 100 mg PO MOWEFR water pill 04/14/24 06/04/24 History acetaminophen 325 mg tablet 650 mg (2 x 325 mg) PO Q6H PRN PRN 04/24/24 Unknown Rx Pain 1-10 Or Fever >100.7 #0 tabs insulin glargine 100 unit/mL (3 20 unit (0.2 mL) subcu t DINNER 04/24/24 06/05/24 Rx mL) subcutaneous pen diabetes 30 days #0 mL insulin lispro 100 unit/mL 10 unit (0.1 mL) subcut TID AC #0 mL 04/24/24 Unknown Rx subcutaneous pen (Humalog KwikPen (U-100) Insulin) insulin lispro 100 unit/mL See Protocol subcut ACHS dm 05/04/24 Unknown History subcutaneous pen (Humalog KwikPen (U-100) Insulin) arginine 7 gram-glutamine 7 1 ea PO BID 05/22/2406/05 History gram-calcium HMB 1.5 gram oral powder pack (Dustin) nystatin 100,000 unit/gram topical 1 applic topical DA DIAMANTE 05/22/24 06/05/24 History cream nut.tx.gluc.intol,lac-free,soy 240 ml PO DAILY 5 06/05/24 History (Glucerna oral liquid) sennosides 8.6 mg-docusate sodium 1 tab-cap PO BID PRN PRN 06/04/24 06/05/24 History 50 mg tablet (Stimulant Laxative Constipation Plus) oxycodone-acetaminophen 2.5 mg-325 1 tab PO Q8H PRN pa in 7 days #20 06/08/24 Unknown Rx mg tablet (Percocet) tabs clopidogrel 75 mg tablet 75 mg PO DAILY 07/02/24 Unkn own History Allergy/AdvReac Type Severity Reaction Status Date / Time pioglitazone (From Actos) Allergy fatigue Verified 07/07/24 17:40 simvastatin (From Zocor) Allergy myalgia Verified 07/07/24 17:40 sitagliptin (From Januvia) Allergy unknown Verified 07/07/24 17:40 Family History Mother Hypertension Father Diabetes COPD (chronic obstructive pulmonary disease) Surgical History Hx of foot surgery History of cataract extraction History of ligation of vein History of arteriovenostomy for renal dialysis History of inguinal hernia repair History of appendectomy Social History Smoking Status: Never smoker alcohol intake: never substance use type: does not use caffeine: Yes Type: coffee Number of servings: 1 what type of physical activity do you participate in: none seatbelt use: always do you feel safe at home: Yes ROS ROS ED Review of Systems ROS Unobtainable: other Constitutional Constitutional ED: Reports lethargy; Denies chills, fever(s), sweats or weight loss Eyes Eyes: Denies blurry vision, change in vision or diplopia ENT ENT ED: Denies rhinorrhea or sore throat Cardiovascular Cardiovascular: Reports chest pain and racing heartbeat; Denies orthopnea Respiratory/Chest Respiratory/Chest: Reports cough, dyspnea and dyspnea on exertion; Denies orthopnea or sputum Gastrointestinal Gastrointestinal: Denies abdominal pain, diarrhea, nausea or vomiting Genitourinary Genitourinary ED: Denies dysuria, hematuria or urinary frequency Musculoskeletal Musculoskeletal: Denies arthralgias, back pain, myalgias or neck pain Integumentary Denies abscess, Abrasions or rash Neurologic Neurologic: Reports other Details: Dizziness ; Denies headache(s) or weakness Psychiatric Psychiatric: Denies anxiety, depression or suicidal thoughts Endocrine Endocrinology: Denies polydipsia, polyphagia or polyuria Hematologic/Lymphatic Hematologic/Lymphatic: Denies easy bleeding, easy bruising or lymphadenopathy Allergic/Immunologic Allergic/Immunologic ED: Denies mouth swelling, tongue swelling or urticaria EXAM Physical Exam Const Vital Signs: 07/07/24 17:34 07/07/24 17:35 07/07/24 19:34 Temperature 99.2 F H Temperature Source Oral Pulse Rate 76 58 L 72 Respiratory Rate 25 H 18 20 H Blood Pressure 119/46 L 117/49 L 128/46 H Blood Pressure Mean 70 71 73 Pulse Ox 92 93 93 Oxygen Delivery Method Room Air Room Air Room Air 07/07/24 21:00 Temperature Temperature Source Pulse Rate 69 Respiratory Rate 18 Blood Pressure 109/46 L Blood Pressure Mean 67 Pulse Ox 92 Oxygen Delivery Method Room Air Positive well nourished and well developed General Appearance ED: well developed and NAD HEENT Reports TM's clear and moist mucous membranes normocephalic and atraumatic; Negative for trauma or tenderness Tympanic Membrane ED: Yes TM's clear Eyes PERRL and EOMs intact bilaterally General Eye ED: Negative for pale conjunctiva or scleral icterus Neck no lymphadenopathy, supple and no JVD General: Negative for tenderness Chest Wall inspection of chest normal and palpation of chest normal Chest: Negative for tenderness Resp normal respiratory effort and clear to auscultation bilaterally Effort and Inspection: Negative for respiratory distress or pain with movement Auscultation: Negative for rhonchi, wheezes or diminished lung sounds Cardio regular rate, regular rhythm, S1 normal heart sound, S2 normal heart sound and no murmurs Peripheral Pulses: pulses 2+ throughout GI normal to inspection, nondistended, normoactive bowel sounds, soft to palpation, non-tender, non-distended and no masses Back/Spine no CVA tenderness and no thoracic nor lumbar tenderness Extremity Extremity Narrative: Right foot-patient has a wound VAC involving the right foot. Peers he has had resection of his toes. He has diffuse tenderness over the heel. No obvious drainage noted. There are some faint erythema to the heel. General Extremety ED: Negative for edema General Extremity: Negative for edema Neuro oriented x3, CN's II-XII intact bilaterally, no sensory deficits noted and gait normal Sensorium / Orientation: awake, alert, oriented to person, oriented to place and oriented to time Motor Exam: strength 5/5 throughout and strength abnormal Psych mental status grossly normal Skin no rashes or lesions noted and no wounds MDM MDM MDM Narrative Medical decision making narrative: Patient brought to the emergency department for concern about low pulse ox as well as some increased confusion and complaint of dizziness. He had dialysis today. To me the patient denies any sick's. Family members did arrive and were able to give history that typically on dialysis days he does have some increased confusion. There is confusion at baseline with the patient. Apparently he was in the emergency department twice this week for concerns about low diastolic blood pressure and some hypotension issues. He was discharged back to the assisted both times. Patient currently being treated for a osteomyelitis of the right foot and sees podiatry every Tuesday or Tuesday. He does have some odor noted to the wound and he has a wound VAC in place. There is no drainage that I appreciate. In reading the prior ED doc note there was a similar presentation to her during his last visit. Once again patient's white blood cell count is normal at 9.0 and his hemoglobin is stable at 8.1. Platelet count 211. Chemistries unremarkable. EKG obtained arrival showed atrial fibrillation with ventricular rate of [address] changes. COVID flu and RSV testing was negative. Urinalysis without signs of infection. CT scan of the brain without contrast unremarkable. 1 view chest x-ray showed poor inspiratory volume but no evidence of infiltrate or other acute process. Patient clinically feels well his vital signs are stable and family state that he is at his baseline. He has not been hypoxic for us. Will discharge to home and advised to follow-up with podiatry during his next appointment. Lab Data Attestation: I reviewed the patient's lab results. Labs: Laboratory Results - last 24 hr 07/07/24 07/07/24 18:30 19:50 WBC 9.0 RBC 2.85 L Hgb 8.1 L Hct 27.0 L MCV 94.7 H MCH 28.4 MCHC 30.0 L RDW Std Deviation 56.3 H RDW Coeff of Frances 16.6 H Plt Count 211 MPV 10.7 Immature Gran % (Auto) 0.300 Neut % (Auto) 74.8 H Lymph % (Auto) 13.1 L Traill % (Auto) 11.4 H Eos % (Auto) 0.1 Baso % (Auto) 0.3 Absolute Neuts (auto) 6.7 Absolute Lymphs (auto) 1.18 Nucleated RBC % 0 Sodium 132 L Potassium 3.4 L Chloride 91 L Carbon Dioxide 33.0 H Anion Gap 8 BUN 33 H Creatinine 3.01 H Estim Creat Clear Calc 19.28 Est GFR (MDRD) Af Amer 26 L Est GFR (MDRD) Non-Af 21 L BUN/Creatinine Ratio 11.0 Glucose 157 H Calcium 8.5 Troponin I High Sens 62 Urine Color Lilia Urine Clarity Clear Urine pH 5.0 Ur Specific [place] 1.015 Urine Protein 100 H Urine Glucose (UA) 50 H Urine Ketones 5 H Urine Occult Blood 10 H Urine Nitrite Negative Urine Bilirubin 1 H Urine Urobilinogen Normal Ur Leukocyte Esterase 25 H Urine RBC 0 SEEN Urine WBC 0-5 SEEN Ur Squamous Epith Cells 0 SEEN Urine Bacteria 0 SEEN Urine Mucus 0 SEEN Radiography Diagnostic Testing: Clinical Impression(s) from Imaging Studies Brain CT 07/07/24 19:07 IMPRESSION: 1. No acute intracranial abnormality. 2. Chronic sinusitis. Reading Location: [facility] Chest X-Ray 07/07/24 20:25 IMPRESSION: 1. No acute cardiopulmonary process. 2. Crowding due to low inspiratory volumes. Reading Location: [facility] Discharge Plan Triage Chief Complaint: Dizziness ED Provider: Alicia Loo Dx/Rx/DC Orders Clinical Impression: Dizziness, Atrial fibrillation, Chronic renal failure, Chronic osteomyelitis of right foot Instructions: ED AFIB, ED Chronic Kidney Disease (CKD), ED Dizziness, Uncertain Cause Prescriptions: No Action cholecalciferol (vitamin D3) 1,000 UNIT tablet 5,000 unit PO DAILY Qty: 30 0RF torsemide 100 mg tablet 100 mg PO MOWEFR Patient Comments: on non-dialysis days acetaminophen 325 mg Tablet 650 mg PO Q6H PRN PRN (Reason: Pain 1-10 Or Fever >100.7) Qty: 0 0RF insulin lispro [Humalog KwikPen Insulin] 100 unit/mL Insulin Pen 10 unit subcut TIDAC Qty: 0 0RF Rx Instructions: Hold if glucose less than 130 mg/dl insulin glargine 100 unit/mL (3 mL) insulin pen 20 unit SC DINNER 30 Days Qty: 0 0RF Rx Instructions: Hold if glucose less than 130 mg/dl Dustin 7-7-1.5 gram powder in packet 1 ea PO BID nystatin 100,000 unit/gram cream 1 applic topical DAILY clopidogrel 75 mg tablet 75 mg PO DAILY Patient Comments: [NO ORIGINAL SIG] insulin lispro [Humalog KwikPen Insulin] 100 unit/mL Insulin Pen See Protocol subcut ACHS Protocol: 3. Sliding Scale Insulin Med Dosing Condition: 150-189 mg/dl = 1 unit Condition: 190-229 mg/dl = 2 units Condition: 230-269 mg/dl = 3 units Condition: 270-309 mg/dl = 4 units Condition: 310-349 mg/dl = 5 units Condition: 350-399 mg/dl = 6 units Condition: 400-449 mg/dl = 7 units Condition: Greater than 449 call physician Protocol Text: Suggested for: - Patients on Total Daily Insulin Dose of 37-55 units - Obese, infected, or steroid patients MEDIUM DOSING ALGORITHIM Rx Instructions: 150-189 1 unit,190-229 2 unit, 230-269 3 unit, 270-309 4 unit, 310-349 5 unit, 350-399 6 unit, 400-449 7 unit, 450-500 call physicion Glucerna Liquid 240 ml PO DAILY sennosides-docusate sodium [Stimulant Laxative Plus] 8.6-50 mg Tablet 1 tab-cap PO BID PRN PRN (Reason: Constipation) aspirin [Adult Aspirin Regimen] 81 mg tablet,delayed release (DR/EC) 81 mg PO DAILY oxycodone-acetaminophen [Percocet] 2.5-325 mg tablet 1 tab PO Q8H PRN (Reason: pain) 7 Days Qty: 20 0RF Primary Care Provider: Nando Wiggins Referrals: Nando Wiggins MD [Primary Care Provider] - 3-5 Days Print Language: Bahamian Disposition Disposition: Home, Self Care
[2024-07-07 18:36] LABS: Absolute Lymphocyte Count 1.18 X10^3/uL (0.83-4.51); Absolute Neutrophil Count 6.7 X10^3/uL (2.0-7.7); Basophil# 0.03 X10^3/uL; Basophil% 0.3 % (0-1); Eosinophil# 0.01 X10^3/uL; Eosinophils% 0.1 % (0-5); Hemoglobin 8.1 g/dL (13.0-16.5); Lymphocyte # 1.18 X10^3/ul (0.83-4.51); Lymphocyte % 13.1 % (19-41); Mean Corpuscular Hgb 28.4 pg (27.0-32.0); Mean Corpuscular Volume 94.7 fL (80-94); Mean Platelet Vol. 10.7 fl (6.2-12.0); Monocyte# 1.03 X10^3/uL; Monocyte% 11.4 % (0-10); NRBC Flagged by Analyzer 0 % (0-5); Neutrophil # 6.72 X10^3/uL (2.7-7.7); Neutrophil % 74.8 % (47-70); Platelet Count 211 K/mm3 (150-450); RBC Distribution Width CV 16.6 % (11.6-14.6); RBC Distribution Width SD 56.3 fl (35.1-43.9); Red Blood Count 2.85 M/mm3 (4.6-6.2)
[2024-07-07 19:04] LABS: Anion Gap 8 (5-15); BUN 33 mg/dL (7-18); Calcium,Total 8.5 mg/dL (8.5-10.1); Chloride 91 mmol/L (98-107); Creatinine, Serum 3.01 mg/dL (0.70-1.30); EST Glomerular Filtration Rate 21 mL/min (>60); Est Glom Filt Rate - Afr Amer 26 mL/min (>60); Estimated Creatinine Clearance 19.28 ml/min; Glucose 157 mg/dL (74-106); Potassium 3.4 mmol/L (3.5-5.1); Sodium Level 132 mmol/L (136-145); Troponin-I HS 62 pg/mL (3.0-78.0)
--- NOTE | 2024-07-07 19:07 | CT_ITS ---
EXAM: BRAIN/HEAD WITHOUT CONTRAST CLINICAL HISTORY: Mental status change COMPARISON: None. TECHNIQUE: Noncontrast images of the head with multiplanar reconstructions. Dose reduction techniques were used including intermediate exposure control (AEC),iterative reconstruction technique, and/or mA and/or KV dose adjustments based on patient's size. FINDINGS: No acute intracranial hemorrhage. 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 The osseous structures are unremarkable. No soft tissue abnormality identified. There is mucosal thickening in the paranasal sinuses. A mucous retention cyst or polyp is present in the right maxillary sinus. CT/Brain/Head without Contrast IMPRESSION: 1. No acute intracranial abnormality. 2. Chronic sinusitis. Reading Location: [facility]
[2024-07-07 19:34] VITALS: BP 128/46; PULSE 72; RESP 20; O2SAT 93
[2024-07-07 20:10] LABS: Bacteria 0 SEEN /hpf (None Seen); Mucous, Urine 0 SEEN /hpf (<or=2+); Squamous Epithelial Cells - UA 0 SEEN /hpf (0-5)
[2024-07-07 20:11] LABS: Color, Urine Amber (Yellow); Glucose, Dipstick 50 mg/dl (Normal); Ketone-Dipstick 5 mg/dl (Negative); Leukocyte Esterase-Dipstick 25 /ul (Negative); Nitrite-Dipstick Negative (Negative); Occult Blood-Urine 10 /ul (Negative); Protein-Dipstick 100 mg/dl (Negative); Specific Gravity, Urine 1.015 (1.002-1.030); Urine Clarity Clear (Clear); Urine Urobilinogen Normal (Normal)
[2024-07-07 20:19] LABS: Urine Bilirubin Dipstick 1 mg/dL (Negative)
--- NOTE | 2024-07-07 20:25 | RAD_ITS ---
PROCEDURE: CHEST 1 VIEW (PORTABLE) REASON FOR EXAM: Cough TECHNIQUE: Frontal view of the chest. COMPARISON: 08/28/2020 FINDINGS: Low inspiratory volumes with crowding of the bronchovascular markings. No acute pulmonary consolidation. No pleural effusion or pneumothorax. The cardiomediastinal silhouette is unremarkable. No acute osseous or soft tissue abnormality. RAD/Chest 1 View (Portable) IMPRESSION: 1. No acute cardiopulmonary process. 2. Crowding due to low inspiratory volumes. Reading Location: [facility]
[2024-07-07 20:30] LABS: Red Blood Cells-Urine 0 SEEN /hpf (0-5); White Blood Cells 0-5 SEEN /hpf (0-5)
[2024-07-07 21:00] VITALS: BP 109/46; PULSE 69; RESP 18; O2SAT 92
--- NOTE | 2024-07-07 21:44 | ED.RN ---
CALLED [facility], SPOKE WITH CAREY. ETA IS 90 MIN-2 HOURS ([id number])
[2024-07-07 22:04] VITALS: BP 119/61; PULSE 74; RESP 19; TEMP 36.6; O2SAT 94
--- NOTE | 2024-07-07 22:12 | ED.RN ---
Nurse to nurse report called to [place] at [place]. All questions answered.
== END 2024-07-07 23:08 | disposition home or self-care (01) ==
PROVIDERS: Emergency Provider Emergency Medicine; PCP Internal Medicine; Visit Provider Emergency Medicine
DX: R42 Dizziness and giddiness (principal); N18.6 End stage renal disease; M86.671 Other chronic osteomyelitis, right ankle and foot; I50.32 Chronic diastolic (congestive) heart failure; I48.91 Unspecified atrial fibrillation; E11.22 Type 2 diabetes mellitus with diabetic chronic kidney disease; E11.42 Type 2 diabetes mellitus with diabetic polyneuropathy; E11.69 Type 2 diabetes mellitus with other specified complication; E78.5 Hyperlipidemia, unspecified; Z99.2 Dependence on renal dialysis; R41.0 Disorientation, unspecified; I25.10 Atherosclerotic heart disease of native coronary artery without angina pectoris; Z79.02 Long term (current) use of antithrombotics/antiplatelets; R06.09 Other forms of dyspnea; R07.9 Chest pain, unspecified
CPT/HCPCS: 70450; 71045; 80048; 81001; 84484; 85025; 87631; 93005; 99285; P9612; A4216

== ENCOUNTER 2024-07-11 10:30 | Outpatient (RCR) | payer MEDICARE, SELFPAY ==
[2024-06-23 02:27] VITALS: BP 111/31; PULSE 58; RESP 18; TEMP 35.9; BMI 31.9
[2024-06-26 11:09] VITALS: BMI 31.9
--- NOTE | 2024-06-26 12:09 | PCM.WC.PN ---
History of Present Illness Date of Service: 06/26/24 Chief Complaint: R 1st digit amputation site, R 2nd toe ulceration History of Wound: Patient presents for follow-up status post right foot transmetatarsal amputation. Patient denies constitutional symptoms. Patient denies pain. Patient is maintain nonweightbearing in a SNF has been compliant with treatment thus far. No other complaints. Objective Data Objective Data Vital Signs: Vital Signs Temp Pulse Resp BP 96.7 F L 58 L 18 111/31 L 06/23/24 02:27 06/23/24 02:27 06/23/24 02:27 06/23/24 02:27 Weight: 92.533 kg Body Mass Index (BMI) 31.9 Physical Exam Narrative Neurovascular status unchanged. Stable eschar noted to the distal central transmetatarsal amputation site on the right foot extending medially and laterally. This was debrided. Exposed lesser metatarsals noted along the lateral aspect of the incision. Superior inferior margin of the wound appeared granular and bleeding. No acute signs of infection. Debridement Note Debridement Note Post-Debridement Measurements and Additional Note: Post-Debridement Measurements/Treatment - Nurse 1 - General Ulcer Assessment Start: 06/26/24 10:58 Freq: Status: Active Protocol: FREEMAN Activity Type Activity Date Activity User E-sign Co-sign Detail Recorded Client Recorded Date Recorded By Document 06/26/24 11:09 Patient Feed [id number] 06/26/24 11:20 KW 06/26/24 11:09 - Today's Visit Information Type of service Follow-up Visit (Physician/WORKERS COMPENSATION SPECIALIST ) Arrival Mode Wheelchair Transfer Assistance Shirley Lift Accompanied by son in law Patient Identification Verified (Name & Yes ) Height and Weight Body Mass Index (BMI) 31.9 BMI Classification Obese Vital Signs Temperature Source Temporal Pain Scale: 0-10 Numeric Is Patient Pain Free? Yes - Nurse 1 - General Ulcer Measurement Start: 06/26/24 10:58 Freq: Status: Active Protocol: Activity Type Activity Date Activity User E-sign Co-sign Detail Recorded Client Recorded Date Recorded By Document 06/26/24 11:09 Patient Feed [id number] 06/26/24 11:20 KW 06/26/24 11:09 Wound Center Nurse 1 #2 LT HEEL -Current Size (cm) - Length 1.4 -Current Size (cm) - Width 1.2 -Current Size (cm) - Depth 0.1 -Total Square Cm 1.68 -Date of Last Picture (Recall this 06/26/24 field) -Exudate Amt None Present -Granulation Amt None Present (0 %) -Necrosis Amt Large (67-100%) -Necrotic Tissue Type Eschar -Texture (Apurva-wound Skin Appearance) Assessed -Moisture (Apurva-wound Skin Appearance) Assessed,Dry/ Scaly -Color (Apurva-wound Skin Appearance) Assessed -Temperature (Apurva-wound Skin No Abnormality Appearance) (Pt Warm) -Tenderness on Palpation (Apurva-wound No Skin Appearance) -Ulcer Cleansing Soap and Water -Foul Odor after Cleansing No -Anesthetic Used 4% Lidocaine Solution #1 RT FT POST-OP -Current Size (cm) - Length 0.6 -Current Size (cm) - Width 17 -Current Size (cm) - Depth 0.3 -Total Square Cm 10.2 -Date of Last Picture (Recall this 06/26/24 field) -Exudate Amt None Present -Wound Margin Distinct, Outline Attached -Granulation Amt Small (1-33%) -Granulation Quality Red -Necrosis Amt Large (67-100%) -Necrotic Tissue Type Eschar -Texture (Apurva-wound Skin Appearance) Assessed -Moisture (Apurva-wound Skin Appearance) Assessed,Dry/ Scaly -Color (Apurva-wound Skin Appearance) Assessed -Temperature (Apurva-wound Skin No Abnormality Appearance) (Pt Warm) -Tenderness on Palpation (Apurva-wound No Skin Appearance) -Ulcer Cleansing Soap and Water -Foul Odor after Cleansing No -Anesthetic Used 4% Lidocaine Solution WC - Nurse 2 - General Ulcer CM Notes Start: 06/26/24 10:58 Freq: Status: Active Protocol: Activity Type Activity Date Activity User E-sign Co-sign Detail Recorded Client Recorded Date Recorded By Document 06/26/24 11:41 FISH [id number] 06/26/24 11:45 FISH 06/26/24 11:41 Wound Center Nurse 2 #2 LT HEEL -Time 11:41 -Correct Patient Yes -Correct Side, Site, Position Yes -Correct Procedure Yes -Procedure Performed Yes -Type of Procedure Debridement -Clinical Debridement Subcutaneous -Tissue Removed Subcutaneous -Post Debridement (cm) - Length 1.5 -Post Debridement (cm) - Width 1.5 -Post Debridement (cm) - Depth 0.2 -Total Square (Post) (cm) 2.25 -Area of Debridement (cm) - Length 1.5 -Area of Debridement (cm) - Width 1.5 -Total Square (Area) (cm) 2.25 -Tunneling No -Undermining/Tunneling No -Circular Undermining No -Wound/Ulcer Outcome Not Healed -Ulcer Cleansing Rinsed/ Irrigated with Saline -Foul Odor after Cleansing No -Bioengineered Tissue No -Bleeding Controlled with Pressure -Treatment Response Procedure Tolerated Well -Offloading No -Debridement - Subq, 1st 20sq cm Yes #1 RT FT POST-OP -Time 11:41 -Correct Patient Yes -Correct Side, Site, Position Yes -Correct Procedure Yes -Procedure Performed Yes -Type of Procedure Debridement -Clinical Debridement Muscle / Fascia -Tissue Removed Non-viable tissue -Post Debridement (cm) - Length 4 -Post Debridement (cm) - Width 15 -Post Debridement (cm) - Depth 3 -Total Square (Post) (cm) 60 -Area of Debridement (cm) - Length 4 -Area of Debridement (cm) - Width 15 -Total Square (Area) (cm) 60 -Tunneling No -Undermining/Tunneling No -Circular Undermining No -Wound/Ulcer Outcome Not Healed -Ulcer Cleansing Rinsed/ Irrigated with Saline -Foul Odor after Cleansing No -Bleeding Controlled with Pressure,Silver Nitrate -Treatment Response Procedure Tolerated Well -Debridement - Muscle / Fascia, 1st Yes 20sq cm -Debridement, Muscle/Fascia, ea addt'l 2 20sq cm or part thereof Pain Scale: 0-10 Numeric Is Patient Pain Free? Yes WC - Nurse 3 - General Ulcer D/C NN Start: 06/26/24 10:58 Freq: Status: Active Protocol: Activity Type Activity Date Activity User E-sign Co-sign Detail Recorded Client Recorded Date Recorded By Document 06/26/24 11:59 KW [id number] 06/26/24 12:01 KW 06/26/24 11:59 Wound Care Center Nurse 3 #2 LT HEEL -Primary Dressing Applied Hysept ($) -Primary Dressing Covered/Secured with Dry Gauze & Roll Gauze, Secured with Tape #1 RT FT POST-OP -Primary Dressing Applied Optilok 6.5x10 -Other Dressing DAKINS -Primary Dressing Covered/Secured with Dry Gauze, Secured with Tape -Optilok 6.5x10 1 Left -Tubular Bandage Single Layer -Size of Tubigrip Used Size F -Size F ($) 1 Pain Scale: 0-10 Numeric Is Patient Pain Free? Yes WC - Visit Discharge Discharge Condition Stable Ambulatory Status Wheelchair Medication Reconcilliation completed & No provided to patient/care provider Clinical Summary of Care Provided Yes Assessment/Plan Assessment/Plan (1) Other acute osteomyelitis, right ankle and foot: CODE(S): M86.171 - Other acute osteomyelitis, right ankle and foot PLAN: Exam performed. Patient has significant peripheral neuropathy and peripheral arterial disease in the setting of diabetes. Patient underwent revascularization per Dr. White twice. Patient is to follow-up for limb flow study with Dr. Kaleb Frye for further intervention. Due to central necrosis of the flap we will plan for debridement today followed by packing with Dakin Dakin soaked gauze, followed by negative pressure wound therapy via wound VAC until granulation noted to surface and will plan for application of skin substitute grafts If there are any degeneration in the wound or acute onset of infection we will consider below-knee amputation or more proximal amputation as determined at that time Today right foot wound was excisionally debrided down to including level of muscle of all nonviable tissue using pickups and #15 blade. Hemostasis obtained with silver nitrate. Topical anesthesia was used. Pre and postdebridement measurements documented nursing notes. Patient tolerated procedure well. Plan for Dakin's wet-to-dry dressings on a daily basis with Tubigrip for compression, consider negative pressure wound therapy on follow-up appointment Follow-up weekly Continue right foot nonweightbearing Recommend Dustin supplementation Recommend diabetes control (2) Other specified peripheral vascular diseases: CODE(S): I73.89 - Other specified peripheral vascular diseases
--- NOTE | 2024-06-27 12:21 | WC ---
PHOTO 06/26/24 RIGHT FOOT POST OP
--- NOTE | 2024-06-27 12:21 | WC ---
PHOTO 06/26/24 RIGHT FOOT POST OP
--- NOTE | 2024-06-27 12:22 | WC ---
PHOTO 06/26/24 RIGHT HEEL
[2024-07-04 09:53] VITALS: BP 109/32; RESP 14; TEMP 36.3; BMI 31.9
[2024-07-04 10:43] LABS: Bedside Glucose 114 mg/dL (74-106)
--- NOTE | 2024-07-04 14:28 | PN.PCM_ITS ---
History of Present Illness Date of Service: 07/04/24 Chief Complaint: R 1st digit amputation site, R 2nd toe ulceration History of Wound: Patient presents for follow-up status post right foot transmetatarsal amputation. Patient denies constitutional symptoms. Patient denies pain. Patient is maintain nonweightbearing in a SNF has been compliant with treatment thus far. No other complaints. Progress of Wound: Full-thickness wound to the right lower extremity transmetatarsal amputation site. Wound base is necrotic but stable. Subjective Subjective Mr. Thompson is a 89-year-old male presented with [facility] today follow-up evaluation of full-thickness wound to the transmetatarsal amputation site to the right lower extremity. He also has a dry eschar to the right heel. The left h eel wound is now healed. He is nonambulatory. He is in a wheelchair. He is awaiting approval for his VAC. Patient is a patient of Dr. Ruelas who is out of town and being covered by myself. Patient is doing well with dressing changes at the snf facility. He denies any pain to the right leg. He is still waiting to see if he is approved for limb flow study/treatment. Denies trauma. Denies constitutional symptoms. No pedal complaints at this time. Objective Data Objective Data Vital Signs: Vital Signs Temp Pulse Resp BP 97.3 F L 58 L 14 109/32 L 07/04/24 09:53 06/23/24 02:27 07/04/24 09:53 07/04/24 09:53 Weight: 92.533 kg Body Mass Index (BMI) 31.9 Lab / Micro Data Labs: Laboratory Results - last 24 hr 07/04/24 10:23: POC Glucose 114 H Physical Exam Narrative Neurovascular status unchanged. Stable eschar noted to the distal central transmetatarsal amputation site on the right foot extending medially and laterally. Full-thickness wound to the sandoval smetatarsal amputation site measures 4.3 x 13.2 x 2.8 cm. Exposed lesser metatarsals noted along the lateral aspect of the incision. Superior inferior margin of the wound appeared granular and bleeding. Evidence of dry eschar to the heel stable with no sign of infection. No acute signs of infection. No pain with calf pressure. Excisional debridement down to including subcutaneous tissue, fascia, muscle and bone to the right foot full-thickness wound transmetatarsal amputation site with a number 5 mm dermal curette without incident. Predebridement regiment is 4.0 x 13.0 x 2.5 cm. Postdebridement measurement is 4.3 x 13.2 x 2.8 cm. Debridement Note Debridement Note Debridement Free Text: Excisional debridement down to including subcutaneous tissue, fascia, muscle and bone to the right foot full-thickness wound transmetatarsal amputation site with a number 5 mm dermal curette without incident. Predebridement regiment is 4.0 x 13.0 x 2.5 cm. Postdebridement measurement is 4.3 x 13.2 x 2.8 cm. Post-Debridement Measurements and Additional Note: Post-Debridement Measurements/Treatment WC - Nurse 1 - General Ulcer Assessment Start: 06/26/24 10:58 Freq: Status: Active Protocol: WC.LOWEXT Activity Type Activity Date Activity User E-sign Co-sign Detail Recorded Client Recorded Date Recorded By Document 06/26/24 11:09 KW [id number] 06/26/24 11:20 KW Document 07/04/24 09:53 ML [id number] 07/04/24 10:02 ML 06/26/24 07/04/24 11:09 09:53 WC - Today's Visit Information Type of service Follow-up Visit Follow-up Visit (Physician/COMMERCIAL COLLECTOR (Physician/COMMERCIAL COLLECTOR ) ) Arrival Mode Wheelchair Wheelchair Transfer Assistance Shirley Lift Accompanied by son in law Patient Identification Verified (Name & Yes Yes ) Patient Requires Transmission-Based No Precautions Height and Weight Body Mass Index (BMI) 31.9 31.9 BMI Classification Obese Obese Vital Signs Temperature (97.8 F-99.1 F) 97.3 F L Temperature Source Temporal Temporal Respiratory Rate (12-18) 14 Respiratory rate source Observation Blood Pressure (90/60-120/80) 109/32 L Blood Pressure Mean (mm Hg) 57 Source Monitor Position Sitting History Since Last Visit- (Skip if this is Patient's initial visit) Have you changed medications since your No last visit? Any new allergies or adverse reactions No Had a fall/change in ADL's that may No increase risk of falls Signs or symptoms of abuse and/or No neglect since last visit Have you been in the hospital since your Yes last visit? Has dressing in place as prescribed Yes Has compression in place as prescribed N/A Has offloadiing in place as prescribed N/A Experienced any changes in pain level or No management Pain Scale: 0-10 Numeric Is Patient Pain Free? Yes Yes WC - Nurse 1 - General Ulcer Measurement Start: 06/26/24 10:58 Freq: Status: Active Protocol: Activity Type Activity Date Activity User E-sign Co-sign Detail Recorded Client Recorded Date Recorded By Document 06/26/24 11:09 KW [id number] 06/26/24 11:20 KW Document 07/04/24 09:53 ML [id number] 07/04/24 10:02 ML Edit Result 07/04/24 09:53 ML (1) [id number] 07/04/24 10:04 ML (1) #1 RT FT POST-OP - Combined with other wound => No - Current Size (cm) - Length => 3 - Current Size (cm) - Width => 15 - Current Size (cm) - Depth => 2 - Total Square Cm => 45 06/26/24 07/04/24 11:09 09:53 Wound Center Nurse 1 #2 LT HEEL -Current Size (cm) - Length 1.4 0.1 -Current Size (cm) - Width 1.2 0.1 -Current Size (cm) - Depth 0.1 0.1 -Total Square Cm 1.68 0.01 -Date of Last Picture (Recall this 06/26/24 field) -Exudate Amt None Present None Present -Granulation Amt None Present (0 None Present (0 %) %) -Slough/Fibrin No -Necrosis Amt Large (67-100%) None Present (0 %) -Necrotic Tissue Type Eschar -Texture (Apurva-wound Skin Appearance) Assessed No Abnormality -Moisture (Apurva-wound Skin Appearance) Assessed,Dry/ No Abnormality Scaly -Color (Apurva-wound Skin Appearance) Assessed No Abnormality -Temperature (Apurva-wound Skin No Abnormality No Abnormality Appearance) (Pt Warm) (Pt Warm) -Tenderness on Palpation (Apurva-wound No No Skin Appearance) -Ulcer Cleansing Soap and Water Soap and Water -Foul Odor after Cleansing No No -Anesthetic Used 4% Lidocaine 5% Lidocaine Solution Gel #1 RT FT POST-OP -Combined with other wound No -Current Size (cm) - Length 0.6 3 -Current Size (cm) - Width 17 15 -Current Size (cm) - Depth 0.3 2 -Total Square Cm 10.2 45 -Date of Last Picture (Recall this 06/26/24 field) -Exudate Amt None Present Large -Exudate Type Yellow/Green -Wound Margin Distinct, Distinct, Outline Outline Attached Attached -Granulation Amt Small (1-33%) -Granulation Quality Red -Slough/Fibrin Yes -Necrosis Amt Large (67-100%) Large (67-100%) -Necrotic Tissue Type Eschar Adherent Slough -Texture (Apurva-wound Skin Appearance) Assessed Assessed -Moisture (Apurva-wound Skin Appearance) Assessed,Dry/ Dry/Scaly Scaly -Color (Apurva-wound Skin Appearance) Assessed Assessed, Hemosiderin Staining -Temperature (Apurva-wound Skin No Abnormality No Abnormality Appearance) (Pt Warm) (Pt Warm) -Tenderness on Palpation (Apurva-wound No No Skin Appearance) -Ulcer Cleansing Soap and Water Soap and Water -Foul Odor after Cleansing No No -Anesthetic Used 4% Lidocaine 5% Lidocaine Solution Gel WC - Nurse 2 - General Ulcer CM Notes Start: 06/26/24 10:58 Freq: Status: Active Protocol: Activity Type Activity Date Activity User E-sign Co-sign Detail Recorded Client Recorded Date Recorded By Document 06/26/24 11:41 [id number] 06/26/24 11:45 Document 07/04/24 10:43 [facility] [id number] 07/04/24 10:58 [facility] 06/26/24 07/04/24 11:41 10:43 Wound Center Nurse 2 #2 LT HEEL -Time 11:41 10:51 -Correct Patient Yes -Correct Side, Site, Position Yes -Correct Procedure Yes -Procedure Performed Yes -Type of Procedure Debridement -Clinical Debridement Subcutaneous -Tissue Removed Subcutaneous -Post Debridement (cm) - Length 1.5 0 -Post Debridement (cm) - Width 1.5 0 -Post Debridement (cm) - Depth 0.2 0 -Total Square (Post) (cm) 2.25 0 -Area of Debridement (cm) - Length 1.5 0 -Area of Debridement (cm) - Width 1.5 0 -Total Square (Area) (cm) 2.25 0 -Tunneling No -Undermining/Tunneling No -Circular Undermining No -Wound/Ulcer Outcome Not Healed -Ulcer Cleansing Rinsed/ Irrigated with Saline -Foul Odor after Cleansing No -Bioengineered Tissue No -Bleeding Controlled with Pressure -Treatment Response Procedure Tolerated Well -Offloading No -Debridement - Subq, 1st 20sq cm Yes #1 RT FT POST-OP -Time 11:41 10:46 -Correct Patient Yes Yes -Correct Side, Site, Position Yes Yes -Correct Procedure Yes Yes -Procedure Performed Yes Yes -Type of Procedure Debridement Debridement -Clinical Debridement Muscle / Fascia Bone -Tissue Removed Non-viable tissue -Post Debridement (cm) - Length 4 4.3 -Post Debridement (cm) - Width 15 13.2 -Post Debridement (cm) - Depth 3 2.8 -Total Square (Post) (cm) 60 56.76 -Area of Debridement (cm) - Length 4 4.3 -Area of Debridement (cm) - Width 15 13.2 -Total Square (Area) (cm) 60 56.76 -Tunneling No No -Undermining/Tunneling No No -Circular Undermining No No -Wound/Ulcer Outcome Not Healed Not Healed -Ulcer Cleansing Rinsed/ Rinsed/ Irrigated with Irrigated with Saline Saline -Foul Odor after Cleansing No No -Bioengineered Tissue No -Bleeding Controlled with Pressure,Silver Pressure Nitrate -Treatment Response Procedure Procedure Tolerated Well Tolerated Well -Debridement - Muscle / Fascia, 1st Yes 20sq cm -Debridement, Muscle/Fascia, ea addt'l 2 20sq cm or part thereof -Debridement - Bone, 1st 20sq cm Yes -Debridement, Bone, ea addt'l 20sq cm 2 or part thereof Pain Scale: 0-10 Numeric Is Patient Pain Free? Yes Yes WC - Nurse 3 - General Ulcer D/C NN Start: 06/26/24 10:58 Freq: Status: Active Protocol: Activity Type Activity Date Activity User E-sign Co-sign Detail Recorded Client Recorded Date Recorded By Document 06/26/24 11:59 KW [id number] 06/26/24 12:01 KW Document 07/04/24 11:16 DL [id number] 07/04/24 11:18 DL 06/26/24 07/04/24 11:59 11:16 Wound Care Center Nurse 3 #2 LT HEEL -Primary Dressing Applied Hysept ($) -Primary Dressing Covered/Secured with Dry Gauze & Roll Gauze, Secured with Tape #1 RT FT POST-OP -Ulcer Cleansing Soap and Water -Foul Odor after Cleansing No -Primary Dressing Applied Optilok 6.5x10 -Other Dressing DAKINS DAKINS -Primary Dressing Covered/Secured with Dry Gauze, Dry Gauze, Secured with Secured with Tape Tape -Optilok 6.5x10 1 Left -Tubular Bandage Single Layer Single Layer -Size of Tubigrip Used Size F Size F -Size F ($) 1 1 Treatment Response Procedure Tolerated Well Pain Scale: 0-10 Numeric Is Patient Pain Free? Yes Yes WC - Visit Discharge Discharge Condition Stable Stable Ambulatory Status Wheelchair Wheelchair Transportation ECF tRANS Medication Reconcilliation completed & No provided to patient/care provider Clinical Summary of Care Provided Yes Facility Type [facility] Protection Associate Care Facility Orders Sent Yes Assessment/Plan Assessment/Plan (1) Other acute osteomyelitis, right ankle and foot: CODE(S): M86.171 - Other acute osteomyelitis, right ankle and foot PLAN: Patient was examined and evaluated. All findings were discussed with the patient. All questions were answered to the patient's satisfaction. Excisional debridement down to including subcutaneous tissue, fascia, muscle and bone to the right foot full-thickness wound transmetatarsal amputation site with a number 5 mm dermal curette without incident. Predebridement regiment is 4.0 x 13.0 x 2.5 cm. Postdebridement measurement is 4.3 x 13.2 x 2.8 cm. The right lower extremities were cleaned and patted dry. Stable eschar was dressed with Betadine paint and the full-thickness wound was dressed with Dakin soaked gauze for packing dry sterile dressing and light compression bandage was donned to right lower extremity. The patient's left heel wound is now healed. New order will be given for the patient SNF for a wound VAC application to the right lower extremity full-thickness wound. It is to be changed every other day at a setting of 125 mmHg. Educated the patient to reach out to vascular surgery and to see if the patient will be approved for limb flow study/intervention at [facility]. Risk and benefits of the surgery were discussed with the patient in great detail. Educated the patient continue strict blood sugar control and supplementation. Follow-up at the wound care center with Dr. Garcia in 1 week. (2) Other specified peripheral vascular diseases: CODE(S): I73.89 - Other specified peripheral vascular diseases
[2024-07-11 10:27] VITALS: BP 119/45; PULSE 60; RESP 18; TEMP 35.9; BMI 31.9
--- NOTE | 2024-07-11 12:03 | PN.PCM_ITS ---
History of Present Illness Date of Service: 07/11/24 Chief Complaint: R 1st digit amputation site, R 2nd toe ulceration History of Wound: Patient presents for follow-up status post right foot transmetatarsal amputation. Patient denies constitutional symptoms. Patient denies pain. Patient is maintain nonweightbearing in a SNF has been compliant with treatment thus far. No other complaints. Progress of Wound: Full-thickness wound to the right lower extremity transmetatarsal amputation site. Wound base is necrotic but stable. Subjective Subjective Mr. Hawkins is a 89-year-old male presenting to wound care center today for follow-up evaluation of full-thickness wound to the transmetatarsal amputation site to the right lower extremity. He has been getting his wound VAC applied at his halfway facility. He admits to some mild to moderate pain with the wound VAC. He resides in a wheelchair and elevates when he can. He denies trauma. Denies constitutional symptoms. No other pedal complaints at this time. Objective Data Objective Data Vital Signs: Vital Signs Temp Pulse Resp BP O2 Del Method 96.7 F L 60 18 119/45 L Room Air 07/11/24 10:27 07/11/24 10:27 07/11/24 10:27 07/11/24 10:27 07/11/24 10:27 Oxygen Delivery Method Room Air Weight: 92.533 kg Body Mass Index (BMI) 31.9 Physical Exam Narrative Neurovascular status unchanged. Stable eschar noted to the distal central transmetatarsal amputation site on the right foot extending medially and laterally. Full-thickness wound to the transmetatarsal amputation site measures 3.2 x 11.5 x 2.8 cm. Exposed lesser metatarsals noted along the lateral aspect of the incision. Superior inferior margin of the wound appeared granular and bleeding. Evidence of dry eschar to the heel stable with no sign of infection. No acute signs of infection. No pain with calf pressure. Excisional debridement down to including subcutaneous tissue, fascia, muscle and bone to the right foot full-thickness wound transmetatarsal amputation site with a number 5 mm dermal curette without incident. Predebridement regiment is 3.0 x 11.2 x 2.5 cm. Postdebridement measurement is 3.2 x 11.5 x 2.8 cm. Debridement Note Debridement Note Debridement Free Text: Excisional debridement down to including subcutaneous tissue, fascia, muscle and bone to the right foot full-thickness wound transmetatarsal amputation site with a number 5 mm dermal curette without incident. Predebridement regiment is 3.0 x 11.2 x 2.5 cm. Postdebridement measurement is 3.2 x 11.5 x 2.8 cm. Post-Debridement Measurements and Additional Note: Post-Debridement Measurements/Treatment - Nurse 1 - General Ulcer Assessment Start: 06/26/24 10:58 Freq: Status: Active Protocol: [email or web address].LOWEXT Activity Type Activity Date Activity User E-sign Co-sign Detail Recorded Client Recorded Date Recorded By Document 06/26/24 11:09 KW [id number] 06/26/24 11:20 KW Document 07/04/24 09:53 ML [id number] 07/04/24 10:02 ML Document 07/11/24 10:27 KW [id number] 07/11/24 10:37 KW 06/26/24 07/04/24 07/11/24 11:09 09:53 10:27 - Today's Visit Information Type of service Follow-up Visit Follow-up Visit Follow-up Visit (Physician/FUR JOINER (Physician/FUR JOINER (Physician/FUR JOINER ) ) ) Arrival Mode Wheelchair Wheelchair Wheelchair Transfer Assistance Shirley Lift Accompanied by son in law son in law Patient Identification Verified (Name & Yes Yes Yes ) Patient Requires Transmission-Based No Precautions Height and Weight Body Mass Index (BMI) 31.9 31.9 31.9 BMI Classification Obese Obese Obese Vital Signs Temperature (97.8 F-99.1 F) 97.3 F L 96.7 F L Temperature Source Temporal Temporal Temporal Pulse Rate (60-100) 60 Pulse Location Monitor Respiratory Rate (12-18) 14 18 Respiratory rate source Observation Observation Oxygen Delivery Method Room Air Blood Pressure (90/60-120/80) 109/32 L 119/45 L Blood Pressure Mean (mm Hg) 57 69 Source Monitor Monitor Position Sitting Semi-Fowlers Blood Pressure Location Left Arm History Since Last Visit- (Skip if this is Patient's initial visit) Have you changed medications since your No No last visit? Any new allergies or adverse reactions No No Had a fall/change in ADL's that may No No increase risk of falls Signs or symptoms of abuse and/or No No neglect since last visit Have you been in the hospital since your Yes No last visit? Has dressing in place as prescribed Yes Yes Has compression in place as prescribed N/A Yes Has offloadiing in place as prescribed N/A Yes Experienced any changes in pain level or No No management Left Footwear No Footwear Right Footwear Slipper Pain Scale: 0-10 Numeric Is Patient Pain Free? Yes Yes Yes Rt Foot -Description Sharp,Burning, Aching -Intensity 10 -Alleviating Factors/Interventions Medication, Medicate when due WC - Nurse 1 - General Ulcer Measurement Start: 06/26/24 10:58 Freq: Status: Active Protocol: Activity Type Activity Date Activity User E-sign Co-sign Detail Recorded Client Recorded Date Recorded By Document 06/26/24 11:09 KW [id number] 06/26/24 11:20 KW Document 07/04/24 09:53 ML [id number] 07/04/24 10:02 ML Edit Result 07/04/24 09:53 ML (1) [id number] 07/04/24 10:04 ML Document 07/11/24 10:27 KW [id number] 07/11/24 10:37 KW (1) #1 RT FT POST-OP - Combined with other wound => No - Current Size (cm) - Length => 3 - Current Size (cm) - Width => 15 - Current Size (cm) - Depth => 2 - Total Square Cm => 45 06/26/24 07/04/24 07/11/24 11:09 09:53 10:27 Wound Center Nurse 1 #2 LT HEEL -Current Size (cm) - Length 1.4 0.1 -Current Size (cm) - Width 1.2 0.1 -Current Size (cm) - Depth 0.1 0.1 -Total Square Cm 1.68 0.01 -Date of Last Picture (Recall this 06/26/24 field) -Exudate Amt None Present None Present -Granulation Amt None Present (0 None Present (0 %) %) -Slough/Fibrin No -Necrosis Amt Large (67-100%) None Present (0 %) -Necrotic Tissue Type Eschar -Texture (Apurva-wound Skin Appearance) Assessed No Abnormality -Moisture (Apurva-wound Skin Appearance) Assessed,Dry/ No Abnormality Scaly -Color (Apurva-wound Skin Appearance) Assessed No Abnormality -Temperature (Apurva-wound Skin No Abnormality No Abnormality Appearance) (Pt Warm) (Pt Warm) -Tenderness on Palpation (Apurva-wound No No Skin Appearance) -Ulcer Cleansing Soap and Water Soap and Water -Foul Odor after Cleansing No No -Anesthetic Used 4% Lidocaine 5% Lidocaine Solution Gel #1 RT FT POST-OP -Combined with other wound No -Current Size (cm) - Length 0.6 3 3.5 -Current Size (cm) - Width 17 15 11.5 -Current Size (cm) - Depth 0.3 2 1.5 -Total Square Cm 10.2 45 40.25 -Date of Last Picture (Recall this 06/26/24 07/11/24 field) -Undermining/Tunneling Yes -Undermining/Tunneling Starts (O'clock 10 ) -Undermining/Tunneling Ends (O'clock) 2 -Maximum Distance (cm) 2 -Exudate Amt None Present Large None Present -Exudate Type Yellow/Green -Wound Margin Distinct, Distinct, Thickened & Outline Outline Rolled Under Attached Attached -Granulation Amt Small (1-33%) Small (1-33%) -Granulation Quality [place],Red -Slough/Fibrin Yes -Necrosis Amt Large (67-100%) Large (67-100%) Large (67-100%) -Necrotic Tissue Type Eschar Adherent Slough Eschar -Texture (Apurva-wound Skin Appearance) Assessed Assessed Assessed -Moisture (Apurva-wound Skin Appearance) Assessed,Dry/ Dry/Scaly Assessed,Dry/ Scaly Scaly -Color (Apurva-wound Skin Appearance) Assessed Assessed, Assessed Hemosiderin Staining -Temperature (Apurva-wound Skin No Abnormality No Abnormality No Abnormality Appearance) (Pt Warm) (Pt Warm) (Pt Warm) -Tenderness on Palpation (Apurva-wound No No Yes Skin Appearance) -Ulcer Cleansing Soap and Water Soap and Water Soap and Water -Foul Odor after Cleansing No No No -Anesthetic Used 4% Lidocaine 5% Lidocaine 4% Lidocaine Solution Gel Solution Right Calf (cm) 42.5 Right Ankle (cm) 24 WC - Nurse 2 - General Ulcer CM Notes Start: 06/26/24 10:58 Freq: Status: Active Protocol: Activity Type Activity Date Activity User E-sign Co-sign Detail Recorded Client Recorded Date Recorded By Document 06/26/24 11:41 [id number] 06/26/24 11:45 Document 07/04/24 10:43 [facility] [id number] 07/04/24 10:58 [facility] Document 07/11/24 10:58 [id number] 07/11/24 11:04 06/26/24 07/04/24 07/11/24 11:41 10:43 10:58 Wound Center Nurse 2 #2 LT HEEL -Time 11:41 10:51 -Correct Patient Yes -Correct Side, Site, Position Yes -Correct Procedure Yes -Procedure Performed Yes -Type of Procedure Debridement -Clinical Debridement Subcutaneous -Tissue Removed Subcutaneous -Post Debridement (cm) - Length 1.5 0 -Post Debridement (cm) - Width 1.5 0 -Post Debridement (cm) - Depth 0.2 0 -Total Square (Post) (cm) 2.25 0 -Area of Debridement (cm) - Length 1.5 0 -Area of Debridement (cm) - Width 1.5 0 -Total Square (Area) (cm) 2.25 0 -Tunneling No -Undermining/Tunneling No -Circular Undermining No -Wound/Ulcer Outcome Not Healed -Ulcer Cleansing Rinsed/ Irrigated with Saline -Foul Odor after Cleansing No -Bioengineered Tissue No -Bleeding Controlled with Pressure -Treatment Response Procedure Tolerated Well -Offloading No -Debridement - Subq, 1st 20sq cm Yes #1 RT FT POST-OP -Time 11:41 10:46 10:58 -Correct Patient Yes Yes Yes -Correct Side, Site, Position Yes Yes Yes -Correct Procedure Yes Yes Yes -Procedure Performed Yes Yes Yes -Type of Procedure Debridement Debridement Debridement -Clinical Debridement Muscle / Fascia Bone Bone -Tissue Removed Non-viable Non-viable tissue tissue -Post Debridement (cm) - Length 4 4.3 3.2 -Post Debridement (cm) - Width 15 13.2 11.5 -Post Debridement (cm) - Depth 3 2.8 2.8 -Total Square (Post) (cm) 60 56.76 36.80 -Area of Debridement (cm) - Length 4 4.3 3.2 -Area of Debridement (cm) - Width 15 13.2 11.5 -Total Square (Area) (cm) 60 56.76 36.80 -Tunneling No No No -Undermining/Tunneling No No No -Circular Undermining No No No -Wound/Ulcer Outcome Not Healed Not Healed Not Healed -Ulcer Cleansing Rinsed/ Rinsed/ Rinsed/ Irrigated with Irrigated with Irrigated with Saline Saline Saline -Foul Odor after Cleansing No No No -Bioengineered Tissue No No -Bleeding Controlled with Pressure,Silver Pressure Pressure Nitrate -Treatment Response Procedure Procedure Procedure Tolerated Well Tolerated Well Tolerated Well -Offloading Yes -Type of Offloading Other -Other Type of Offloading foam boot -Assistive Device(s) Wheelchair -Debridement - Muscle / Fascia, 1st Yes 20sq cm -Debridement, Muscle/Fascia, ea addt'l 2 20sq cm or part thereof -Debridement - Bone, 1st 20sq cm Yes Yes -Debridement, Bone, ea addt'l 20sq cm 2 1 or part thereof Pain Scale: 0-10 Numeric Is Patient Pain Free? Yes Yes Yes WC - Nurse 3 - General Ulcer D/C NN Start: 06/26/24 10:58 Freq: Status: Active Protocol: Activity Type Activity Date Activity User E-sign Co-sign Detail Recorded Client Recorded Date Recorded By Document 06/26/24 11:59 KW [id number] 06/26/24 12:01 KW Document 07/04/24 11:16 DL [id number] 07/04/24 11:18 DL Document 07/11/24 11:31 KW [id number] 07/11/24 11:32 KW 06/26/24 07/04/24 07/11/24 11:59 11:16 11:31 Wound Care Center Nurse 3 #2 LT HEEL -Primary Dressing Applied Hysept -Primary Dressing Covered/Secured with Dry Gauze & Roll Gauze, Secured with Tape #1 RT FT POST-OP -Ulcer Cleansing Soap and Water -Foul Odor after Cleansing No -Negative Pressure Wound Therapy Continue -Setting (mmHg) 125 -Negative Pressure is Continuous -Primary Dressing Applied Optilok 6.5x10 -Other Dressing DAKINS DAKINS pad tubing -Primary Dressing Covered/Secured with Dry Gauze, Dry Gauze, Dry Gauze Secured with Secured with Tape Tape -NPWT Application Charge NPWT & Debridement (nc ) -Optilok 6.5x10 1 Left -Tubular Bandage Single Layer Single Layer Single Layer -Size of Tubigrip Used Size F Size F Size F -Size F ($) 1 1 1 Treatment Response Procedure Tolerated Well Pain Scale: 0-10 Numeric Is Patient Pain Free? Yes Yes Yes WC - Visit Discharge Discharge Condition Stable Stable Stable Ambulatory Status Wheelchair Wheelchair Wheelchair Transportation ECF tRANS Medication Reconcilliation completed & No No provided to patient/care provider Clinical Summary of Care Provided Yes Yes Facility Type Customer Technical Services Manager Care Facility Orders Sent Yes Assessment/Plan Assessment/Plan (1) Other acute osteomyelitis, right ankle and foot: CODE(S): M86.171 - Other acute osteomyelitis, right ankle and foot PLAN: Patient was examined and evaluated. All findings were discussed with the patient. All questions were answered to the patient's satisfaction. Excisional debridement down to including subcutaneous tissue, fascia, muscle and bone to the right foot full-thickness wound transmetatarsal amputation site with a number 5 mm dermal curette without incident. Predebridement regiment is 3.0 x 11.2 x 2.5 cm. Postdebridement measurement is 3.2 x 11.5 x 2.8 cm. The right lower extremities were cleaned and patted dry. Stable eschar was dressed with Betadine paint and the full-thickness wound was dressed with negative pressure wound VAC per the supervisor sheet manufacturing's recommendation and set 125 mmHg. Every other day dressing changes with the wound VAC will be performed by nursing staff at a halfway facility. Educated the patient to reach out to vascular surgery and to see if the patient will be approved for limb flow study[facility]intervention at [facility]. Risk and benefits of the surgery were discussed with the patient in great detail. Educated the patient continue strict blood sugar control and supplementation. Follow-up at the wound care center with Dr. Garcia in 1 week. (2) Other specified peripheral vascular diseases: CODE(S): I73.89 - Other specified peripheral vascular diseases
--- NOTE | 2024-07-11 14:22 | NURSING ---
PHOTO 07/11/24 Right Foot Post-Op
== END 2024-07-20 23:59 | disposition home or self-care (01) ==
LOC: WC 10:30
PROVIDERS: Podiatrist; PCP Internal Medicine; Referring Provider Student in an Organized Health Care Education/Training Program; Visit Provider Surgery Plastic and Reconstructive Surgery
DX: E11.51 Type 2 diabetes mellitus with diabetic peripheral angiopathy without gangrene (principal); T87.89 Other complications of amputation stump; M86.171 Other acute osteomyelitis, right ankle and foot; E11.69 Type 2 diabetes mellitus with other specified complication; E11.42 Type 2 diabetes mellitus with diabetic polyneuropathy; Y83.5 Amputation of limb(s) as the cause of abnormal reaction of the patient, or of later complication, without mention of misadventure at the time of the procedure; S91.301A Unspecified open wound, right foot, initial encounter; X58.XXXA Exposure to other specified factors, initial encounter
CPT/HCPCS: 11042; 11043; 11044; 11046; 11047; 82962

== ENCOUNTER 2024-07-13 13:58 | Inpatient (IN) | payer MEDICARE, SELFPAY ==
[2024-07-13] VITALS (9 sets, daily range): BP systolic 114–134; BP diastolic 42–82; PULSE 50–89; RESP 14–24; TEMP 36.4–37.1; O2SAT 90–99; BMI 32.5; BMI 31.1
--- NOTE | 2024-07-13 14:25 | ED.VIS.LOWEX ---
HPI History of Present Illness Chief Complaint: Wound Informant: patient and family Narrative Narrative: Patient is [facility] from [facility] for evaluation of his right foot for possible infection. He has peripheral arterial disease of the blood vessels in his right lower leg, which led to ischemic toes and amputation of the great toe in April, and subsequently had amputation of the rest of his toes and forefoot this past month in May. He has been in longterm and for the past week he has had a wound VAC that gets changed 3 times weekly, and he has had weekly debridements by podiatry, the last 1 was performed 2 days ago. The nurse practitioner and new wound nurse at the longterm were concerned about the appearance of the wound today. The son, however, states that the erythema in the right lower leg and foot is much improved and less extensive than it was when he saw it 2 days ago when he saw and evaluated it along with the java lead developer, Dr. Garcia. Patient states he has no pain and he is doing well otherwise. The son states that often his blood pressure is low and his resting heart rate is low at baseline. 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 ESRD (end stage renal disease) Type 2 diabetes mellitus with foot ulcer Diabetes mellitus with diabetic 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 Pre-op testing Loose, teeth Wears glasses Cancer Dialysis patient Kidney disease Non-smoker Edema Syncope Chronic diastolic (congestive) heart failure (04/18/20) Paroxysmal atrial fibrillation Sinus bradycardia Type 2 diabetes mellitus Hyperkalemia Swelling of both lower extremities HLD (hyperlipidemia) Left bundle-branch block 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 Abnormal electrocardiogram Home Medications ?Medication ?Instructions ?Recorded ?Last Taken ?Type cholecalciferol (vitamin D3) 25 5,000 unit PO DAILY supplement #30 05/02/20 06/05/24 Rx mcg (1,000 unit) tablet tabs aspirin 81 mg tablet,delayed 81 mg PO DAILY heart health 07/01/20 06/05/24 History release (Adult Aspirin Regimen) torsemide 100 mg tablet 100 mg PO MOWEFR water pill 04/14/24 06/04/24 History acetaminophen 325 mg tablet 650 mg (2 x 325 mg) PO Q6H PRN PRN 04/24/24 Unknown Rx Pain 1-10 Or Fever >100.7 #0 tabs insulin glargine 100 unit/mL (3 20 unit (0.2 mL) subcut DINNER 04/24/24 06/05/24 Rx mL) subcutaneous pen diabetes 30 days #0 mL insulin lispro 100 unit/mL 10 unit (0.1 mL) subcut TIDAC #0 mL 04/24/24 Unknown Rx subcutaneous pen (Humalog KwikPen (U-100) Insulin) insulin lispro 100 unit/mL See Protocol subcut ACHS dm 05/04/24 Unknown History subcutaneous pen (Humalog KwikPen (U-100) Insulin) arginine 7 gram-glutamine 7 1 ea PO BID 05/22/24 06/05/24 History gram-calcium HMB 1.5 gram oral powder pack (Dustin) nystatin 100,000 unit/gram topical 1 applic topical DAILY 05/22/24 06/05/24 History cream nut.tx.gluc.intol,lac-free,soy 240 ml PO DAILY 06/04/24 06/05/24 History (Glucerna oral liquid) sennosides 8.6 mg-docusate sodium 1 tab-cap PO BID PRN PRN 06/04/24 06/05/24 History 50 mg tablet (Stimulant Laxative Constipation Plus) clopidogrel 75 mg tablet 75 mg PO DAILY 07/02/24 Unknown History oxycodone 5 mg tablet 2.5 mg (1/2 x 5 mg) PO Q6H PRN 07/10/24 Unknown Rx pain 20 days #20 tabs oxycodone 5 mg tablet 2.5 mg (1/2 x 5 mg) PO QDAY pain 07/10/24 Unknown Rx 30 days #15 tabs Allergy/AdvReac Type Severity Reaction Status Date / Time pioglitazone (From Actos) Allergy fatigue Verified 07/13/24 14:00 simvastatin (From Zocor) Allergy myalgia Verified 07/13/24 14:00 sitagliptin (From Januvia) Allergy unknown Verified 07/13/24 14:00 Family History Mother Hypertension Father Diabetes COPD (chronic obstructive pulmonary disease) Surgical History Hx of foot surgery History of cataract extraction History of ligation of vein History of arteriovenostomy for renal dialysis History of inguinal hernia repair History of appendectomy Social History Smoking Status: Never smoker alcohol intake: never substance use type: does not use caffeine: Yes Type: coffee Number of servings: 1 what type of physical activity do you participate in: none seatbelt use: always do you feel safe at home: Yes ROS ROS ED Constitutional Constitutional ED: Denies chills or fever(s) Eyes Eyes: Denies change in vision or diplopia ENT ENT ED: Denies rhinorrhea or sore throat Cardiovascular Cardiovascular: Denies chest pain or palpitations Respiratory/Chest Respiratory/Chest: Denies cough or dyspnea Gastrointestinal Gastrointestinal: Denies abdominal pain, diarrhea, nausea or vomiting Genitourinary Genitourinary ED: Reports other Details: Dialysis patient Musculoskeletal Musculoskeletal: Denies back pain or neck pain Integumentary Reports wounds; Denies abscess or rash Neurologic Neurologic: Denies headache(s), paresthesias or weakness EXAM Physical Exam Const Vital Signs: 07/13/24 13:58 07/13/24 14:05 07/13/24 15:05 Temperature 98.6 F 98.7 F 98.7 F Temperature Source Oral Oral Oral Pulse Rate 65 89 78 Respiratory Rate 18 18 16 Blood Pressure 117/42 L 117/82 H 134/78 H Blood Pressure Mean 67 93 96 Pulse Ox 94 93 98 Oxygen Delivery Method Room Air Room Air Room Air Positive well nourished and well developed General Appearance ED: well developed and NAD HEENT Reports moist mucous membranes normocephalic and atraumatic Eyes PERRL and EOMs intact bilaterally Neck full ROM and supple Resp normal respiratory effort and clear to auscultation bilaterally Cardio regular rate and regular rhythm GI non-tender and non-distended Auscultation: normoactive bowel sounds Palpation: soft Back/Spine no CVA tenderness General Back: other FROM Extremity Extremity Narrative: Right forefoot wound with wound VAC in place. There is some medial plantar foot erythema that is nontender. There is some tenderness and some more densely erythematous tissue right around the wound at the peroneal distal aspect. There is what appears to be a scabbed ulcer plantar aspect of the heel that is nontender. He does have sensation. Cap refill is 3-4 seconds throughout the foot. There is no erythema proximal to the foot. All compartments of the lower leg are soft and nondistended. Wound VAC on the right foot appears to have a good seal, there is a sponge within it and no significant discharge in the tubing or air within the sponge. Clinically, the erythema looks better than recent pictures that the son shows me on his cell phone, and the area around the peroneal distal aspect of the foot/wound VAC appears similar. General Extremety ED: Negative for edema, pulses abnormal or tenderness General Extremity: Negative for edema or pulses abnormal Neuro oriented x3, CN's II-XII intact bilaterally and no sensory deficits noted Sensorium / Orientation: awake and alert Motor Exam: general weakness Skin no rashes or lesions noted and no wounds MDM MDM MDM Narrative Medical decision making narrative: Clinically the patient looks relatively good and his vital signs are normal, at the time of evaluation his systolic blood pressure is 120. He is not septic, and although I am seeing his foot just this 1 time, it does not appear grossly infected. I obtained CBC, chemistry panel, ESR, and CRP as well as obtaining three-view x-ray series of the right foot which on my interpretation shows no tracking subcutaneous emphysema to suggest a necrotizing infection. It does show a lot of chronic bony changes and calcified vessels which is stable. Labs are noted has a significant leukocytosis and his CRP is 301. I did look at his sacral decubitus wound, along with nursing. It is stage I and looks healthy, the skin is intact there is no tenderness or sign of infection there. The family states that he has had an occasional cough and he has been fatigued, but this has been present for 1 or 2 weeks. Therefore I added on a two-view chest x-ray which shows no pneumonia on my interpretation, as well as a viral swab. I ordered a urinalysis but the patient ordered very little urine, he had a catheter last week and it was very uncomfortable and does not want that again which I think is reasonable. Discussed with Dr. Garcia. He came evaluated patient took down the wound VAC, and states he is concerned about some of the worsening redness on the peroneal aspect of the plantar foot, but states that the tissues on the inside of the wound actually looked good and better. There is a little bit of fluid draining from this part of the wound, so Dr. Garcia did a deep wound culture which I ordered, advised that we admit him on IV antibiotics, and he will see the patient tomorrow possibly with an operative debridement and washout being planned. At this time he advised that we do a Betadine or Dakins solution dressing along with a bulky gauze dressing over it, and leave the wound VAC off. Discussed with nursing and hospitalist. Lab Data Attestation: I reviewed the patient's lab results. Labs: Laboratory Results - last 24 hr 07/13/24 14:30 WBC 19.9 H RBC 2.89 L Hgb 8.2 L Hct 27.2 L MCV 94.1 H MCH 28.4 MCHC 30.1 L RDW Std Deviation 60.5 H RDW Coeff of Frances 17.8 H Plt Count 354 MPV 10.4 Immature Gran % (Auto) 3.500 H Neut % (Auto) 77.8 H Lymph % (Auto) 10.1 L [place] % (Auto) 7.9 Eos % (Auto) 0.4 Baso % (Auto) 0.3 Absolute Neuts (auto) 15.5 H Absolute Lymphs (auto) 2.00 Nucleated RBC % 0.1 Sodium 133 L Potassium 3.7 Chloride 93 L Carbon Dioxide 32.0 Anion Gap 8 BUN 37 H Creatinine 4.35 H Estim Creat Clear Calc 13.09 Est GFR (MDRD) Af Amer 17 L Est GFR (MDRD) Non-Af 14 L BUN/Creatinine Ratio 8.5 L Glucose 132 H Calcium 8.9 C-React Prot Ext Range 301.00 H Radiography Diagnostic Testing: Clinical Impression(s) from Imaging Studies Foot X-Ray 07/13/24 14:45 IMPRESSION: Soft tissue swelling with small amount of air within the soft tissues. Infection should be ruled out. 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 Reading Location: [place] [id number] Management Discussion w/another healthcare provider: Hospitalist and Environmental Compliance Inspector (Podiatry) Discharge Plan Triage Chief Complaint: Wound ED Provider: Chung Humphreys Dx/Rx/DC Orders Clinical Impression: Diabetic infection of right foot, Chronic kidney disease, stage V requiring chronic dialysis, Status post transmetatarsal amputation of right foot, PAD (peripheral artery disease) Prescriptions: No Action cholecalciferol (vitamin D3) 1,000 UNIT tablet 5,000 unit PO DAILY Qty: 30 0RF torsemide 100 mg tablet 100 mg PO MOWEFR Patient Comments: on non-dialysis days acetaminophen 325 mg Tablet 650 mg PO Q6H PRN PRN (Reason: Pain 1-10 Or Fever >100.7) Qty: 0 0RF insulin lispro [Humalog KwikPen Insulin] 100 unit/mL Insulin Pen 10 unit subcut TIDAC Qty: 0 0RF Rx Instructions: Hold if glucose less than 130 mg/dl insulin glargine 100 unit/mL (3 mL) insulin pen 20 unit SC DINNER 30 Days Qty: 0 0RF Rx Instructions: Hold if glucose less than 130 mg/dl Dustin 7-7-1.5 gram powder in packet 1 ea PO BID nystatin 100,000 unit/gram cream 1 applic topical DAILY clopidogrel 75 mg tablet 75 mg PO DAILY Patient Comments: [NO ORIGINAL SIG] insulin lispro [Humalog KwikPen Insulin] 100 unit/mL Insulin Pen See Protocol subcut ACHS Protocol: 3. Sliding Scale Insulin Med Dosing Condition: 150-189 mg/dl = 1 unit Condition: 190-229 mg/dl = 2 units Condition: 230-269 mg/dl = 3 units Condition: 270-309 mg/dl = 4 units Condition: 310-349 mg/dl = 5 units Condition: 350-399 mg/dl = 6 units Condition: 400-449 mg/dl = 7 units Condition: Greater than 449 call physician Protocol Text: Suggested for: - Patients on Total Daily Insulin Dose of 37-55 units - Obese, infected, or steroid patients MEDIUM DOSING ALGORITHIM Rx Instructions: 150-189 1 unit,190-229 2 unit, 230-269 3 unit, 270-309 4 unit, 310-349 5 unit, 350-399 6 unit, 400-449 7 unit, 450-500 call physicion Glucerna Liquid 240 ml PO DAILY sennosides-docusate sodium [Stimulant Laxative Plus] 8.6-50 mg Tablet 1 tab-cap PO BID PRN PRN (Reason: Constipation) aspirin [Adult Aspirin Regimen] 81 mg tablet,delayed release (DR/EC) 81 mg PO DAILY oxycodone 5 mg tablet 2.5 mg PO QDAY 30 Days Qty: 15 0RF oxycodone 5 mg tablet 2.5 mg PO Q6H PRN (Reason: pain) 20 Days Qty: 20 0RF Primary Care Provider: Nando Wiggins Referrals: Nando Wiggins MD [Primary Care Provider] - Print Language: Slovenian Disposition Disposition: Acute Care Hospital [facility]
[2024-07-13 14:44] LABS: Absolute Neutrophil Count 15.5 X10^3/uL (2.0-7.7); Basophil# 0.06 X10^3/uL; Basophil% 0.3 % (0-1); Eosinophil# 0.07 X10^3/uL; Eosinophils% 0.4 % (0-5); Hematocrit 27.2 % (40-54); Hemoglobin 8.2 g/dL (13.0-16.5); Lymphocyte % 10.1 % (19-41); Mean Corp Hgb Conc 30.1 g/dL (32-36); Mean Corpuscular Hgb 28.4 pg (27.0-32.0); Mean Corpuscular Volume 94.1 fL (80-94); Mean Platelet Vol. 10.4 fl (6.2-12.0); Monocyte# 1.56 X10^3/uL; Monocyte% 7.9 % (0-10); NRBC Flagged by Analyzer 0.1 % (0-5); Neutrophil # 15.46 X10^3/uL (2.7-7.7); Neutrophil % 77.8 % (47-70); POSITIVE DIFFERENTIAL YES; Platelet Count 354 K/mm3 (150-450); RBC Distribution Width CV 17.8 % (11.6-14.6); RBC Distribution Width SD 60.5 fl (35.1-43.9); Red Blood Count 2.89 M/mm3 (4.6-6.2); White Blood Count 19.9 K/mm3 (4.4-11.0)
--- NOTE | 2024-07-13 14:45 | RAD_ITS ---
PROCEDURE: FOOT MIN 3 VIEWS REASON FOR EXAM: Prior transmetatarsal amputation. Soft tissue erythema. Recent debridement. TECHNIQUE: 3 view(s) of each foot COMPARISON: Comparison is made with prior study dated June 06, 2024. FINDINGS: RIGHT FOOT: Once again, the patient is status post transmetatarsal amputation. Persistent soft tissue swelling. Possible ulceration overlying the distal aspect of the foot. 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 RAD/Foot min 3 Views IMPRESSION: Soft tissue swelling with small amount of air within the soft tissues. Infecti on should be ruled out. Lucency seen in the visualized bony structures suggestive of possible disuse os teoporosis. Reading Location: [facility]-
[2024-07-13 15:07] LABS: Differential Indicated SCAN CRITERIA MET
[2024-07-13 15:09] LABS: Anion Gap 8 (5-15); BUN 37 mg/dL (7-18); BUN/Creat Ratio 8.5 RATIO (10-20); Calcium,Total 8.9 mg/dL (8.5-10.1); Chloride 93 mmol/L (98-107); Creatinine, Serum 4.35 mg/dL (0.70-1.30); EST Glomerular Filtration Rate 14 mL/min (>60); Est Glom Filt Rate - Afr Amer 17 mL/min (>60); Estimated Creatinine Clearance 13.09 ml/min; Glucose 132 mg/dL (74-106); Potassium 3.7 mmol/L (3.5-5.1); Sodium Level 133 mmol/L (136-145)
--- NOTE | 2024-07-13 16:02 | CON.PCM_ITS ---
Assessment & Plan Assessment/Plan (1) Chronic osteomyelitis of right foot: PLAN: Patient was examined and evaluated. All findings were discussed with the patient. All questions were answered to the patient satisfaction. Right lower extremity radiographs: Bone stock shows evidence of disuse osteopenia with status post transmetatarsal amputation. Evidence of soft tissue defect to the distal lateral aspect of the transmetatarsal amputation site. Evidence of calcified vessels. Evidence of soft tissue air. No emphysema appreciated. Patient was seen by podiatry in the emergency room department today for evaluation of worsening infection to the right lower extremity transmetatarsal amputation site. Recommended admission under medicine for IV antibiotics and nursing wound care. Podiatry will continue to follow the patient while in house and will determine after the next 24 to 48 hours if it is necessary to take the patient back to the operating room for washout and removal of some of the necrotic tissue and bones. The right lower extremity was dressed with Betadine soaked gauze, dry sterile dressing and light compression wrap to the right lower extremity. Wound Cx: pending WBC: 19.9 ESR: Pending CRP: 301.0 Glucose: 132 HbA1c: 7.7 (06/08/2024) ED: Evaluated. Plan for admission under medicine. IV vancomycin and meropenem Medicine: Pending Podiatry will continue to follow while patient is in house. If there are any questions or concerns please reach out to Dr. Garcia Thank you for the consultation and letting me be involved in the patient care. (2) Cellulitis of right lower limb: (3) Pain in right foot: (4) Other specified peripheral vascular diseases: HPI Consult Data Date of Consult: 07/13/24 HPI Narrative Reason for Consultation: Right foot osteomyelitis and cellulitis. HPI Narrative: PERLA LUBIN, is a 89 M who presents to the emergency room department with [facility] for concerns of worsening infection to the right foot transmetatarsal amputation site with wound VAC application. Patient has a past medical history of peripheral arterial disease of the right lower extremity which eventually led to ischemic toes and amputation of the great toe in April and then subsequently had amputation of the rest of the foot via transmetatarsal amputation in May. Patient currently resides in prison facility and during his wound VAC changed today, the wound care nurse and wound team was concerned for worsening infection to the right lower extremity. Patient has gone under multiple surgical attempts for limb salvage to right lower extremity and currently has an open transmetatarsal amputation due to surgical wound dehiscence and being treated at the wound care center with myself as well as with Dr. Ruelas for weekly excisional debridements and application of negative pressure wound VAC. The patient presented today at the emergency room with worsening right leg pain and blanchable cellulitis to the right lower extremity. Due to the patient's age and comorbidities recommended admission under medicine for IV antibiotics with podiatry to follow. If the patient shows worsening symptoms will recommend operating room washout and debridement. Will plan for wound VAC holiday at this time. The transmetatarsal amputation site of the right lower extremity will be dressed with Betadine soaked gauze, dry sterile dressing and light compression wrap to right lower extremity. 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 ESRD (end stage renal disease) Type 2 diabetes mellitus with foot ulcer Diabetes mellitus with diabetic 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 Pre-op testing Loose, teeth Wears glasses Cancer Dialysis patient Kidney disease Non-smoker Edema Syncope Chronic diastolic (congestive) heart failure (04/18/20) Paroxysmal atrial fibrillation Sinus bradycardia Type 2 diabetes mellitus Hyperkalemia Swelling of both lower extremities HLD (hyperlipidemia) Left bundle-branch block 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 Abnormal electrocardiogram Home Medications ?Medication ?Instructions ?Recorded ?Last Taken ?Type cholecalciferol (vitamin D3) 25 5,000 unit PO DAILY gibson pplement #30 05/02/20 06/05/24 Rx mcg (1,000 unit) tablet tabs aspirin 81 mg tablet,delayed 81 mg PO DAILY heart heal th 07/01/20 06/05/24 History release (Adult Aspirin Regimen) torsemide 100 mg tablet 100 mg PO MOWEFR water pill 04/14/24 06/04/24 History acetaminophen 325 mg tablet 650 mg (2 x 325 mg) PO Q6H PRN PRN 04/24/24 Unknown Rx Pain 1-10 Or Fever >100.7 #0 tabs insulin glargine 100 unit/mL (3 20 unit (0.2 mL) subcu t DINNER 04/24/24 06/05/24 Rx mL) subcutaneous pen diabetes 30 days #0 mL insulin lispro 100 unit/mL 10 unit (0.1 mL) subcut TID AC #0 mL 04/24/24 Unknown Rx subcutaneous pen (Humalog KwikPen (U-100) Insulin) insulin lispro 100 unit/mL See Protocol subcut ACHS dm 05/04/24 Unknown History subcutaneous pen (Humalog KwikPen (U-100) Insulin) arginine 7 gram-glutamine 7 1 ea PO BID 05/22/2406/05 History gram-calcium HMB 1.5 gram oral powder pack (Dustin) nystatin 100,000 unit/gram topical 1 applic topical DA DIAMANTE 05/22/24 06/05/24 History cream nut.tx.gluc.intol,lac-free,soy 240 ml PO DAILY 5 06/05/24 History (Glucerna oral liquid) sennosides 8.6 mg-docusate sodium 1 tab-cap PO BID PRN PRN 06/04/24 06/05/24 History 50 mg tablet (Stimulant Laxative Constipation Plus) clopidogrel 75 mg tablet 75 mg PO DAILY 07/02/24 Unkn own History oxycodone 5 mg tablet 2.5 mg (1/2 x 5 mg) PO Q6H P RN 07/10/24 Unknown Rx pain 20 days #20 tabs oxycodone 5 mg tablet 2.5 mg (1/2 x 5 mg) PO QDAY pain 07/10/24 Unknown Rx 30 days #15 tabs Allergy/AdvReac Type Severity Reaction Status Date / Time pioglitazone (From Actos) Allergy fatigue Verified 07/13/24 14:00 simvastatin (From Zocor) Allergy myalgia Verified 07/13/24 14:00 sitagliptin (From Januvia) Allergy unknown Verified 07/13/24 14:00 Family History Mother Hypertension Father Diabetes COPD (chronic obstructive pulmonary disease) Surgical History Hx of foot surgery History of cataract extraction History of ligation of vein History of arteriovenostomy for renal dialysis History of inguinal hernia repair History of appendectomy Social History Smoking Status: Never smoker alcohol intake: never substance use type: does not use caffeine: Yes Type: coffee Number of servings: 1 what type of physical activity do you participate in: none seatbelt use: always do you feel safe at home: Yes Physical Exam Narrative Neurovascular status unchanged. Evidence of right lower extremity lateral erythema extending to about the ankle. No active purulent drainage. Slight malodor is appreciated. Stable eschars noted to the distal central transmetatarsal amputation site on the right foot extending medially and laterally. Full-thickness wound to the transmetatarsal amputation site measures 3.2 x 11.5 x 2.8 cm. Exposed lesser metatarsals noted along the lateral aspect of the incision. Superior inferior margin of the wound appeared granular with some necrosis. Evidence of dry eschar to the heel stable. Mild to moderate pain with palpation to the erythematous area to the right lower extremity heel. No pain with calf pressure. Const alert, oriented x3 and no apparent distress Lab / Micro Data 07/13/24 14:30 07/13/24 14:30 Labs: Laboratory Results - last 24 hr 07/13/24 14:30: WBC 19.9 H, RBC 2.89 L, Hgb 8.2 L, Hct 27.2 L, MCV 94.1 H, MCH 28.4, MCHC 30.1 L, RDW Std Deviation 60.5 H, RDW Coeff of Frances 17.8 H, Plt Count 354, MPV 10.4, Immature Gran % (Auto) 3.500 H, Neut % (Auto) 77.8 H, Lymph % (Auto) 10.1 L, [place] % (Auto) 7.9, Eos % (Auto) 0.4, Baso % (Auto) 0.3, Absolute Neuts (auto) 15.5 H, Absolute Lymphs (auto) 2.00, Nucleated RBC % 0.1, Sodium 133 L, Potassium 3.7, Chloride 93 L, Carbon Dioxide 32.0, Anion Gap 8, BUN 37 H, Creatinine 4.35 H, Estim Creat Clear Calc 13.09, Est GFR (MDRD) Af Amer 17 L, E st GFR (MDRD) Non-Af 14 L, BUN/Creatinine Ratio 8.5 L, Glucose 132 H, Calcium 8.9, C-React Prot Ext Range 301.00 H Imaging Radiology Impression Foot X-Ray 07/13/24 14:45 IMPRESSION: Soft tissue swelling with small amount of air within the soft tissues. Infection should be ruled out. 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 Reading Location: [place] [id number]
[2024-07-13 16:05] LABS: Anisocytosis 1+; Hypochromasia RARE; Macrocytosis 1+; Platelet Estimate ADEQUATE (ADEQ); Red Cell Morphology N CHROM NORMAL (NORM C&C)
[2024-07-13 16:13] LABS: Erythrocyte Sedimentation Rate 53 mm/hr (0-20)
--- NOTE | 2024-07-13 16:20 | RAD_ITS ---
PROCEDURE: AP UPRIGHT AND LATERAL REASON FOR EXAM: Shortness of breath. Cough. TECHNIQUE: Frontal and lateral views of the chest. COMPARISON: 07/07/2024. FINDINGS: Diminished inspiratory effort. The heart size is normal. The mediastinal contour is unremarkable. The lungs are clear. The bones are unremarkable. RAD/Chest PA and Lateral IMPRESSION: No active cardiopulmonary disease. No significant interval change since 2024. Reading Location: [facility]
[2024-07-13] MEDS: Meropenem 2 GM in 0.9% Normal Saline (100mL Bag) 100 ML IV (16:53)
[2024-07-13] MEDS: Vancomycin HCl 1,500 MG in 0.9% Normal Saline (500mL Bag) 500 ML 250 MG IV (17:47)
--- NOTE | 2024-07-13 17:48 | HP.PCM.HOS_ITS ---
HPI - General General Date of Admission: 07/13/24 Date of Service: 07/13/24 Chief Complaint: concern for R foot infection HPI Narrative PERLA LUBIN, is a 89-year-old male history of A-fib, diabetes, heart failure with preserved ejection fraction, end-stage renal disease, PAD presented [facility] ED 07/13/2024 due to possible infection of his right foot. Pt has PAD in right lower extremity which led to ischemic toes and amputation of the great toe in April, the following month in May required amputation of the rest of his toes and has been in a residential for the past week with a wound VAC that gets changed 3 times weekly. He has had podiatry debridement weekly with the last one 2 days ago. Nurse practitioner and wound nurse were concerned about the appearance of the wound today so he sent to the ED. In the ED patient afebrile and vitally stable however white blood cell count 19.9, CRP 301, and foot x-ray with soft tissue swelling with small amount of air within the soft tissues and lucency visualized in the bony structures suggestive of possible diffuse osteoporosis. Podiatry contacted in the ED and evaluated, recommended admission for IV antibiotics with podiatry consult. Hospitalist contacted for admission. Patient evaluated with son at bedside, patient possibly had a fever earlier in the week x 1 but has not had one again, also has had a little bit of a dry cough that is been persistent but aside from that no new complaints. His right foot has a wound VAC in [address] Garcia evaluated, debrided, and wound VAC was replaced. Today new wound care nurse was concerned so patient was brought to the ED. Patient has no other new or acute complaints. 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 ESRD (end stage renal disease) Type 2 diabetes mellitus with foot ulcer Diabetes mellitus with diabetic 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 Pre-op testing Loose, teeth Wears glasses Cancer Dialysis patient Kidney disease Non-smoker Edema Syncope Chronic diastolic (congestive) heart failure (04/18/20) Paroxysmal atrial fibrillation Sinus bradycardia Type 2 diabetes mellitus Hyperkalemia Swelling of both lower extremities HLD (hyperlipidemia) Left bundle-branch block 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 Abnormal electrocardiogram Home Medications ?Medication ?Instructions ?Recorded ?Last Taken ?Type aspirin 81 mg tablet,delayed 81 mg PO DAILY heart heal th 07/01/20 06/05/24 History release (Adult Aspirin Regimen) torsemide 100 mg tablet 100 mg PO MOWEFR water pill 04/14/24 06/04/24 History insulin glargine 100 unit/mL (3 20 unit (0.2 mL) subcu t DINNER 04/24/24 06/05/24 Rx mL) subcutaneous pen diabetes 30 days #0 mL insulin lispro 100 unit/mL See Protocol subcut ACHS dm 05/04/24 Unknown History subcutaneous pen (Humalog KwikPen (U-100) Insulin) arginine 7 gram-glutamine 7 1 ea PO BID 05/22/2406/05 History gram-calcium HMB 1.5 gram oral powder pack (Dustin) nystatin 100,000 unit/gram topical 1 applic topical DA DIAMANTE 05/22/24 06/05/24 History cream nut.tx.gluc.intol,lac-free,soy 240 ml PO DAILY 5 06/05/24 History (Glucerna oral liquid) sennosides 8.6 mg-docusate sodium 1 tab-cap PO BID PRN PRN 06/04/24 06/05/24 History 50 mg tablet (Stimulant Laxative Constipation Plus) clopidogrel 75 mg tablet 75 mg PO QHS 07/02/24 Unknow n History acetaminophen 325 mg tablet 650 mg PO Q8H PRN PRN Pain 1-10 Or 07/13/24 Unknown History Fever >100.7 cholecalciferol (vitamin D3) 125 125 mcg PO DAILY 06/24 06/16 Unknown History mcg (5,000 unit) capsule insulin lispro 100 unit/mL 10 unit subcut TID 07/13/24 Unknown History subcutaneous pen insulin lispro 100 unit/mL 10 unit subcut DAILY Unknown History subcutaneous pen (Humalog KwikPen (U-100) Insulin) oxycodone 5 mg tablet 2.5 mg PO DAILY PRN pain Unknown History oxycodone 5 mg tablet 2.5 mg PO Q6H PRN pain 07/13 Unknown History oxycodone-acetaminophen 2.5 mg-325 1 tab PO Q8H Unknown History mg tablet (Endocet) Allergy/AdvReac Type Severity Reaction Status Date / Time pioglitazone (From Actos) Allergy fatigue Verified 07/13/24 14:00 simvastatin (From Zocor) Allergy myalgia Verified 07/13/24 14:00 sitagliptin (From Januvia) Allergy unknown Verified 07/13/24 14:00 Family History Mother Hypertension Father Diabetes COPD (chronic obstructive pulmonary disease) Surgical History Hx of foot surgery History of cataract extraction History of ligation of vein History of arteriovenostomy for renal dialysis History of inguinal hernia repair History of appendectomy Social History Smoking Status: Never smoker alcohol intake: never substance use type: does not use caffeine: Yes Type: coffee Number of servings: 1 what type of physical activity do you participate in: none seatbelt use: always do you feel safe at home: Yes ROS ROS Narrative General: Reportedly had a fever earlier this week but none since HENT: Denies headache, denies stuffy nose, denies sore throat EYES: Denies changes in vision Resp: Has had a little bit of a dry cough, denies shortness of breath Cardiac: Denies chest pain GI: Denies abdominal pain, denies changes in bowel, denies nausea/vomiting : Does not make much urine Extremity: Denies any new swelling MSK: Denies weakness Neuro: Denies any numbness/tingling Heme: Denies any bleeding or bruising Skin: Denies rashes, right lower extremity wrapped at this time Psychiatric: No complaints voiced Vital Signs Vital Signs Vital Signs: 07/13/24 13:58 07/13/24 14:05 07/13/24 15:05 Temperature 98.6 F 98.7 F 98.7 F Temperature Source Oral Oral Oral Pulse Rate 65 89 78 Respiratory Rate 18 18 16 Blood Pressure 117/42 L 117/82 H 134/78 H Blood Pressure Mean 67 93 96 Pulse Ox 94 93 98 Oxygen Delivery Method Room Air Room Air Room Air 07/13/24 16:15 07/13/24 17:07 07/13/24 17:07 Temperature 97.5 F L 98 F 98 F Temperature Source Temporal Oral Pulse Rate 50 L 63 65 Respiratory Rate 16 16 16 Blood Pressure 122/78 H 125/52 H 125/52 H Blood Pressure Mean 92 76 76 Pulse Ox 96 99 98 Oxygen Delivery Method Room Air Room Air Weight Weight: 94.3 kg Body Mass Index (BMI) 32.5 Physical Exam Narrative General: Alert, no apparent distress HEENT: Atraumatic, normocephalic Eyes: Anicteric, normal conjunctiva, extraocular movements grossly intact Neck: Supple Respiratory: Clear to auscultation bilaterally, normal respiratory effort Cardiovascular: Regular rate GI: Soft, nontender, nondistended Extremities: No edema Musculoskeletal: Moving all extremities Neuro: No overt focal neurological deficits Skin: No rashes appreciated, right lower extremity wrapped, no drainage on the dressing Psych: Cooperative Results Lab / Micro Data 07/13/24 14:30 07/13/24 14:30 Labs: Laboratory Results - last 24 hr 07/13/24 14:30: WBC 19.9 H, RBC 2.89 L, Hgb 8.2 L, Hct 27.2 L, MCV 94.1 H, MCH 28.4, MCHC 30.1 L, RDW Std Deviation 60.5 H, RDW Coeff of Frances 17.8 H, Plt Count 354, MPV 10.4, Immature Gran % (Auto) 3.500 H, Neut % (Auto) 77.8 H, Lymph % (Auto) 10.1 L, [place] % (Auto) 7.9, Eos % (Auto) 0.4, Baso % (Auto) 0.3, Absolute Neuts (auto) 15.5 H, Absolute Lymphs (auto) 2.00, Nucleated RBC % 0.1, Differential Comment SEE COMMENT, Diff Path Review September, Platelet Estimate ADEQUATE, RBC Morphology N CHROM, Hypochromasia RARE, Anisocytosis 1+, Macrocytosis 1+, ESR 53 H, Sodium 133 L, Potassium 3.7, Chloride 93 L, Carbon Dioxide 32.0, Anion Gap 8, BUN 37 H, Creatinine 4.35 H, Estim Creat Clear Calc 13.09, Est GFR (MDRD) Af Amer 17 L, Est GFR (MDRD) Non-Af 14 L, BUN/Creatinine Ratio 8.5 L, Glucose 132 H, Calcium 8.9, C-React Prot Ext Range 301.00 H Micro: Microbiology 07/13/24 15:50 Mucosa - Nose SARS-CoV-2, Influenza & RSV (PCR) - Final Imaging Radiology Impression Foot X-Ray 07/13/24 14:45 IMPRESSION: Soft tissue swelling with small amount of air within the soft tissues. Infection should be ruled out. 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 Reading Location: [facility]-IR-1 Chest X-Ray 07/13/24 16:20 IMPRESSION: No active cardiopulmonary disease. No significant interval change since 07/07/2024. Reading Location: [facility] Assessment & Plan Assessment/Plan (1) Diabetic infection of right foot: PLAN: Plan # Concern for right foot infection in setting of recent amputations and wound VAC -Patient with history of multiple toe amputations with wound VAC placement following with podiatry -Patient afebrile and vitally stable however white blood cell count 19.9, CRP 301, and foot x-ray with soft tissue swelling with small amount of air within the soft tissues -Patient evaluated in the ED by podiatry who recommend admission and they will evaluate again tomorrow and follow the event patient does need further intervention -Obtain cultures -IV antibiotics -Podiatry consult -Wound nurse consult -Ultimately may need infectious disease involvement but presently no culture data available #ESRD on HD -Consult nephrology -Renal diet -Daily weights, I's and O's #Type 2 diabetes mellitus -Glucose checks and sliding scale insulin -Will decrease long-acting as glucose is only 132 and want to avoid hypoglycemia, unsure if patient will need to be n.p.o. # History of PAD -Complicates presenting problem -Patient chronically on aspirin and Plavix # History of chronic heart failure preserved ejection fraction -Given patient's vital stability we will hold off on any excessive IV fluids -Monitor daily weights and I's and O's -Continue home torsemide #DVT ppx: SCDs Jayla Osuna MD Charges/Coding Visit Charges Inpatient E&M: 46047 Init Hosp L2
--- NOTE | 2024-07-13 20:12 | PCM.RX.CS ---
Consult Antibiotic Management Pharmacy has been consulted to manage selected antibiotic: Vancomycin Type of Intervention Type of Consult: New start Suspected Infection Suspected Infection: Other (diabetic foot infection) Labs Labs: Sodium 133 mmol/L (136-145) L 07/13/24 14:30 Potassium 3.7 mmol/L (3.5-5.1) 07/13/24 14:30 Chloride 93 mmol/L (98-107) L 07/13/24 14:30 Carbon Dioxide 32.0 mmol/L (21.0-32.0) 07/13/24 14:30 Anion Gap 8 (5-15) 07/13/24 14:30 BUN 37 mg/dL (7-18) H 07/13/24 14:30 Creatinine 4.35 mg/dL (0.70-1.30) H 07/13/24 14:30 Est GFR (MDRD) Af Amer 17 mL/min (>60) L 07/13/24 14:30 Est GFR (MDRD) Non-Af 14 mL/min (>60) L 07/13/24 14:30 BUN/Creatinine Ratio 8.5 RATIO (10-20) L 07/13/24 14:30 Glucose 132 mg/dL (74-106) H 07/13/24 14:30 Microbiology Microbiology: Microbiology 07/13/24 15:50 Mucosa - Nose SARS-CoV-2, Influenza & RSV (PCR) - Final Pharmacy Plan for Drug Dosing Pharmacy Plan for Drug Dosing: NEW IV VANCOMYCIN Consulting Physician: Enrrique Indication: diabetic foot infection Goal Trough: 15-20 mg/dL SrCr: HD - MWF schedule CrCl: HD Comments: received initial dose of 1500mg 07/13 @ 1663 Vancomycin Dose: Nurse confirmed with patient he is a MWF HD schedule but did not have HD today. Will enter a random level for tomorrow AM as I am unsure what his schedule will be. No further doses entered until HD schedule for admission is clear. Pending Level: 07/14/24 - 0600 random, pre-HD Pharmacy Service will continue to monitor and adjust dosing as required.
[2024-07-13] MEDS: Juven (unflavored) Packet 1 PACKET PO (22:47)
[2024-07-13] MEDS: Clopidogrel Bisulfate 75 MG Tablet PO (22:47)
[2024-07-13] MEDS: Insulin Lispro 100 UNIT/ML INSULN.PEN SC (22:52)
[2024-07-13 23:58] LABS: Bedside Glucose 231 mg/dL (74-106)
[2024-07-14] VITALS (12 sets, daily range): BP systolic 92–205; BP diastolic 44–68; PULSE 57–84; RESP 15–17; TEMP 36.4–36.9; O2SAT 93–96; BMI 31.1; BMI 33.5
[2024-07-14] MEDS: Insulin Lispro 100 UNIT/ML INSULN.PEN SC ×3 (06:22→22:02)
[2024-07-14] MEDS: Vancomycin Trough/Random Due 1 LAB MC (06:23)
[2024-07-14 06:32] LABS: Absolute Lymphocyte Count 1.49 X10^3/uL (0.83-4.51); Absolute Neutrophil Count 14.7 X10^3/uL (2.0-7.7); Basophil# 0.04 X10^3/uL; Basophil% 0.2 % (0-1); Eosinophil# 0.17 X10^3/uL; Eosinophils% 0.9 % (0-5); Hematocrit 25.3 % (40-54); Hemoglobin 7.8 g/dL (13.0-16.5); Lymphocyte # 1.49 X10^3/ul (0.83-4.51); Lymphocyte % 8.2 % (19-41); Mean Corp Hgb Conc 30.8 g/dL (32-36); Mean Corpuscular Hgb 28.8 pg (27.0-32.0); Mean Corpuscular Volume 93.4 fL (80-94); Mean Platelet Vol. 10.6 fl (6.2-12.0); Monocyte# 1.32 X10^3/uL; Monocyte% 7.2 % (0-10); NRBC Flagged by Analyzer 0 % (0-5); Neutrophil # 14.65 X10^3/uL (2.7-7.7); Neutrophil % 80.2 % (47-70); Platelet Count 346 K/mm3 (150-450); RBC Distribution Width CV 17.6 % (11.6-14.6); RBC Distribution Width SD 59.7 fl (35.1-43.9); Red Blood Count 2.71 M/mm3 (4.6-6.2); White Blood Count 18.3 K/mm3 (4.4-11.0)
[2024-07-14 06:54] LABS: Anion Gap 8 (5-15); BUN 53 mg/dL (7-18); Calcium,Total 8.6 mg/dL (8.5-10.1); Chloride 94 mmol/L (98-107); Creatinine, Serum 4.84 mg/dL (0.70-1.30); EST Glomerular Filtration Rate 12 mL/min (>60); Est Glom Filt Rate - Afr Amer 15 mL/min (>60); Estimated Creatinine Clearance 11.51 ml/min; Glucose 244 mg/dL (74-106); Potassium 3.4 mmol/L (3.5-5.1); Sodium Level 132 mmol/L (136-145)
[2024-07-14 06:57] LABS: Vancomycin, Random Level 15.3 ug/mL (0.0-15.0)
[2024-07-14 07:22] LABS: Bedside Glucose 239 mg/dL (74-106)
--- NOTE | 2024-07-14 08:55 | PCM.PN.HOSP ---
Reason for Visit Reason for Visit: Diagnoses Type 2 diabetes mellitus with other skin complications (07/13/24) Other specified peripheral vascular diseases (07/13/24) Cellulitis of right lower limb (07/13/24) Local infection of the skin and subcutaneous tissue, unspecified (07/13/24) Pain in right foot (07/13/24) Other chronic osteomyelitis, right ankle and foot (07/13/24) Objective Data Objective Data Vital Signs: Vital Signs Temp Pulse Resp BP Pulse Ox O2 Del Method O2 Flow Rate 98.1 F 57 L 16 117/46 L 94 Room Air 2 07/14/24 03:40 07/14/24 03:40 07/14/24 03:40 07/14/24 06:18 07/14/24 03:40 07/14/24 03:40 07/13/24 23:13 Oxygen Flow Rate (L/min) 2 Oxygen Delivery Method Room Air Weight: 198 lb 10.184 oz Body Mass Index (BMI) 31.1 Intake & Output: Intake and Output for Last 24 Hours 07/12/24 07/13/24 07/14/24 23:59 23:59 23:59 Intake Total 670 / 920 400 / 400 Balance 670 / 920 400 / 400 Lab / Micro Data 07/14/24 06:05 07/14/24 06:05 Labs: Laboratory Results - last 24 hr 07/13/24 14:30: WBC 19.9 H, RBC 2.89 L, Hgb 8.2 L, Hct 27.2 L, MCV 94.1 H, MCH 28.4, MCHC 30.1 L, RDW Std Deviation 60.5 H, RDW Coeff of Frances 17.8 H, Plt Count 354, MPV 10.4, Immature Gran % (Auto) 3.500 H, Neut % (Auto) 77.8 H, Lymph % (Auto) 10.1 L, [place] % (Auto) 7.9, Eos % (Auto) 0.4, Baso % (Auto) 0.3, Absolute Neuts (auto) 15.5 H, Absolute Lymphs (auto) 2.00, Nucleated RBC % 0.1, Differential Comment SEE COMMENT, Diff Path Review May foll, Platelet Estimate ADEQUATE, RBC Morphology N CHROM, Hypochromasia RARE, Anisocytosis 1+, Macrocytosis 1+, ESR 53 H, Sodium 133 L, Potassium 3.7, Chloride 93 L, Carbon Dioxide 32.0, Anion Gap 8, BUN 37 H, Creatinine 4.35 H, Estim Creat Clear Calc 13.09, Est GFR (MDRD) Af Amer 17 L, Est GFR (MDRD) Non-Af 14 L, BUN/Creatinine Ratio 8.5 L, Glucose 132 H, Calcium 8.9, C-React Prot Ext Range 301.00 H 07/13/24 22:48: POC Glucose 231 H 07/14/24 06:05: WBC 18.3 H, RBC 2.71 L, Hgb 7.8 L, Hct 25.3 L, MCV 93.4, MCH 28.8, MCHC 30.8 L, RDW Std Deviation 59.7 H, RDW Coeff of Frances 17.6 H, Plt Count 346, MPV 10.6, Immature Gran % (Auto) 3.300 H, Neut % (Auto) 80.2 H, Lymph % (Auto) 8.2 L, [place] % (Auto) 7.2, Eos % (Auto) 0.9, Baso % (Auto) 0.2, Absolute Neuts (auto) 14.7 H, Absolute Lymphs (auto) 1.49, Nucleated RBC % 0, Sodium 132 L, Potassium 3.4 L, Chloride 94 L, Carbon Dioxide 30.0, Anion Gap 8, BUN 53 H, Creatinine 4.84 H, Estim Creat Clear Calc 11.51, Est GFR (MDRD) Af Amer 15 L, Est GFR (MDRD) Non-Af 12 L, BUN/Creatinine Ratio 11.0, Glucose 244 H, Calcium 8.6, Random Vancomycin 15.3 H 07/14/24 06:18: POC Glucose 239 H Micro: Microbiology 07/13/24 16:38 Blood Culture (Wb) - Right Hand Blood Culture - Preliminary 07/13/24 16:38 Blood Culture (Wb) - Arm Right Blood Culture - Preliminary 07/13/24 15:50 Mucosa - Nose SARS-CoV-2, Influenza & RSV (PCR) - Final Radiography Diagnostic Testing: Radiology Impression Foot X-Ray 07/13/24 14:45 IMPRESSION: Soft tissue swelling with small amount of air within the soft tissues. Infection should be ruled out. 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 Reading Location: [facility] Chest X-Ray 07/13/24 16:20 IMPRESSION: No active cardiopulmonary disease. No significant interval change since 07/07/2024. Reading Location: [facility] Physical Exam Narrative Seen and examined. Patient has history of diabetic ulcer on the right foot status post transmetatarsal amputation. Osteomyelitis of right foot. Physical exam General: Alert, Oriented x3, Cooperative HEENT: Atraumatic, PERRLA, EOMI, Normocephalic Oral: No Gingival or Mucosal Lesions/ Ulcerations Neck: Supple, No JVD, Negative Carotid Bruits Chest wall/Lungs: Air entry diminished in bilateral lung bases. No crepitation/rhonchi Cardiovascular: Regular rate, Regular Rhythm, Normal S1, Normal S2, No M/G/R. PAD Abdomen: Bowel Sounds Present, Soft, Non Tender, Non-Distended : On hemodialysis. Little urine output. No dysuria. No renal angle tenderness. No suprapubic tenderness. Extremities: No edema, Capillary Refill Less than 3 Seconds Skin: Ulcer over right transmetatarsal amputation stump. Had transmetatarsal amputation on 06/06/2024. Musculoskeletal: Right foot toes have thick sebum deposits and thickened skin. No Tenderness to Palpation of Joints or Extremities Neurological: Cranial nerves II-XII grossly intact, DTR 2+/4. No acute focal neurological deficit. Psych/Mental Status: Normal Affect, Appropriate. Assessment & Plan Assessment/Plan (1) Diabetic infection of right foot: PLAN: Plan 89-year-old gentleman was admitted for evaluation of right foot infection/osteomyelitis from the custodial. Has peripheral arterial disease of right lower leg, ischemic toes and had transmitted amputation on June 06, 2024 and then # Concern for right foot infection in setting of recent amputations and wound VAC: Patient also had excisional debridement in podiatry office and during previous hospitalization in June 2024. 07/14: both blood cultures x 2 prelim shows GPC in clusters, later identified MRSA.. Patient on IV vancomycin and meropenem. Foot x-ray shows soft tissue swelling with small amount of air within it. Lucency in the visualized bony structures suggestive of diffuse osteoporosis. Discussed with the handwriting expert.ID and 2D echo ordered. Patient afebrile. #ESRD on HD: Technical Mgr is consulted. Patient had hemodialysis today #Type 2 diabetes mellitus, uncontrolled hyperglycemia: Glucose in BMP is 244 and average around 1 85-240. Lantus insulin dose increased 15 units twice daily and started on scheduled Humalog 10 units 3 times daily. Patient also had blood sugar 132 yesterday. Recent A1c on June 08, 2024, 7.7% # History of PAD -Complicates presenting problem -Patient chronically on aspirin and Plavix # History of chronic heart failure preserved ejection fraction -Given patient's vital stability we will hold off on any excessive IV fluids -Monitor daily weights and I's and O's -Continue home torsemide #DVT ppx: SCDs Charges/Coding Visit Charges Inpatient E&M: 00160 Subs Hosp L2
[2024-07-14] MEDS: 0.9% Normal Saline 1,000 ML IV.SOLN. 1000 ML OPERA.SITE (10:18)
--- NOTE | 2024-07-14 11:02 | CASEMGMT ---
Social Work Pt is admitted from [facility]. SW met with pt who confirms plans to return to [facility]. Phone call to pts dgt/HCPOA who confirms pt is intermediate care at [facility] and plans are to return. Clinical updates sent to [facility] via [employer]. Plan: Return to [facility], when medically ready TERRI Zapata
--- NOTE | 2024-07-14 11:18 | PHA.PHARE_ITS ---
Consult Antibiotic Management Pharmacy has been consulted to manage selected antibiotic: Vancomycin Type of Intervention Type of Consult: Follow-up Prior Doses of Antibiotics Prior Doses of Antibiotics Received/Current Regimen: received vanc 1500mg IV x1 last night at 17:47 Labs Labs: Sodium 132 mmol/L (136-145) L 07/14/24 06:05 Potassium 3.4 mmol/L (3.5-5.1) L 07/14/24 06:05 Chloride 94 mmol/L (98-107) L 07/14/24 06:05 Carbon Dioxide 30.0 mmol/L (21.0-32.0) 07/14/24 06:05 Anion Gap 8 (5-15) 07/14/24 06:05 BUN 53 mg/dL (7-18) H 07/14/24 06:05 Creatinine 4.84 mg/dL (0.70-1.30) H 07/14/24 06:05 Est GFR (MDRD) Af Amer 15 mL/min (>60) L 07/14/24 06:05 Est GFR (MDRD) Non-Af 12 mL/min (>60) L 07/14/24 06:05 BUN/Creatinine Ratio 11.0 RATIO (10-20) 07/14/24 06:05 Glucose 244 mg/dL (74-106) H 07/14/24 06:05 Random Vancomycin 15.3 ug/mL (0.0-15.0) H 07/14/24 06:05 Microbiology Microbiology: Microbiology 07/13/24 16:24 Wound - Right Foot Wound Culture - Preliminary Staphylococcus aureus 07/13/24 16:38 Blood Culture (Wb) - Right Hand Blood Culture - Preliminary 07/13/24 16:38 Blood Culture (Wb) - Arm Right Blood Culture - Preliminary 07/13/24 15:50 Mucosa - Nose SARS-CoV-2, Influenza & RSV (PCR) - Final Dosing Weight Weight used for dosin lb 13.574 oz Estimated Creatinine Clearance Estimated Creatinine Clearance: on HD Goal Trough Goal Trough: 15-20 mcg/mL Pharmacy Plan for Drug Dosing Pharmacy Plan for Drug Dosing: The vanc random level drawn prior to HD today was 15.3. Per [facility] protocol in dosing vanc in dialysis patients, since the level is between 15-20 mg/L, will re-dose with 500mg IV x1 after HD today. Repeat a random level prior to the next HD which will be Tuesday since the patient is on a schedule. Pharmacy Service will continue to monitor and adjust dosing as required. Follow-Up Labs Follow-Up Labs: Trough: Vancomycin (random pre-HD) Date/Time Labs Ordered Labs to be done on [date and time ordered]: 07/17/24 0600
--- NOTE | 2024-07-14 11:19 | CASEMGMT ---
Social Work Pt is admitted from [facility]. SW met with pt who confirms plans to return to [place]. Phone call to pts dgt/JEOVANNY Manrique who confirms pt is at [place] under skilled level of care and plans are to return. Clinical updates sent to [place] via [employer]. Plan: Return to [place], New precert will be needed prior to return TERRI Zapata
[2024-07-14] MEDS: Menthol/Lanolin/Calamine/Znox 113 GM Tube 1 APPLIC TOPICAL ×2 (12:05→21:44)
[2024-07-14] MEDS: Juven (unflavored) Packet 1 PACKET PO ×2 (12:05→21:44)
[2024-07-14] MEDS: Insulin Glargine-YFGN 100 UNIT/ML Pen 15 UNIT SC ×2 (12:06→22:01)
[2024-07-14] MEDS: Insulin Lispro 100 UNIT/ML INSULN.PEN 10 UNIT SC (12:12)
--- NOTE | 2024-07-14 12:15 | PN.SURG_ITS ---
Subjective Subjective Ms. Thompson is a 89-year-old diabetic male seen at bedside today for right lower extremity infection. Patient was getting dialysis at the time of interview today. He denies any pain except with touch to the right lower extremity. No acute events overnight. Denies constitutional symptoms. No other pedal complaints at this time. Objective Data Objective Data Vital Signs: Vital Signs Temp Pulse Resp BP Pulse Ox O2 Del Method O2 Flow Rate 97.7 F L 61 16 126/53 H 95 Room Air 2 07/14/24 12:00 07/14/24 12:00 07/14/24 12:00 07/14/24 12:00 07/14/24 11:30 07/14/24 12:00 07/13/24 23:13 Oxygen Flow Rate (L/min) 2 Oxygen Delivery Method Room Air Weight: 97 kg Body Mass Index (BMI) 33.5 Intake & Output: Intake and Output for Last 24 Hours 07/12/24 07/13/24 07/14/24 23:59 23:59 23:59 Intake Total 670 / 920 400 / 400 Balance 670 / 920 400 / 400 Lab / Micro Data 07/14/24 06:05 07/14/24 06:05 Labs: Laboratory Results - last 24 hr 07/13/24 14:30: WBC 19.9 H, RBC 2.89 L, Hgb 8.2 L, Hct 27.2 L, MCV 94.1 H, MCH 28.4, MCHC 30.1 L, RDW Std Deviation 60.5 H, RDW Coeff of Frances 17.8 H, Plt Count 354, MPV 10.4, Immature Gran % (Auto) 3.500 H, Neut % (Auto) 77.8 H, Lymph % (Auto) 10.1 L, Chicot % (Auto) 7.9, Eos % (Auto) 0.4, Baso % (Auto) 0.3, Absolute Neuts (auto) 15.5 H, Absolute Lymphs (auto) 2.00, Nucleated RBC % 0.1, Differential Comment SEE COMMENT, Diff Path Review May , Platelet Estimate ADEQUATE, RBC Morphology N CHROM, Hypochromasia RARE, Anisocytosis 1+, Macrocytosis 1+, ESR 53 H, Sodium 133 L, Potassium 3.7, Chloride 93 L, Carbon Dioxide 32.0, Anion Gap 8, BUN 37 H, Creatinine 4.35 H, Estim Creat Clear Calc 13.09, Est GFR (MDRD) Af Amer 17 L, Est GFR (MDRD) Non-Af 14 L, BUN/Creatinine Ratio 8.5 L, Glucose 132 H, Calcium 8.9, C-React Prot Ext Range 301.00 H 07/13/24 22:48: POC Glucose 231 H 07/14/24 06:05: WBC 18.3 H, RBC 2.71 L, Hgb 7.8 L, Hct 25.3 L, MCV 93.4, MCH 28.8, MCHC 30.8 L, RDW Std Deviation 59.7 H, RDW Coeff of Frances 17.6 H, Plt Count 346, MPV 10.6, Immature Gran % (Auto) 3.300 H, Neut % (Auto) 80.2 H, Lymph % (Auto) 8.2 L, Chicot % (Auto) 7.2, Eos % (Auto) 0.9, Baso % (Auto) 0.2, Absolute Neuts (auto) 14.7 H, Absolute Lymphs (auto) 1.49, Nucleated RBC % 0, Sodium 132 L, Potassium 3.4 L, Chloride 94 L, Carbon Dioxide 30.0, Anion Gap 8, BUN 53 H, C reatinine 4.84 H, Estim Creat Clear Calc 11.51, Est GFR (MDRD) Af Amer 15 L, Est GFR (MDRD) Non-Af 12 L, BUN/Creatinine Ratio 11.0, Glucose 244 H, Calcium 8.6, R andom Vancomycin 15.3 H 07/14/24 06:18: POC Glucose 239 H Micro: Microbiology 07/13/24 16:38 Blood Culture (Wb) - Arm Right Bacteria Detection (PCR) - Final Meth. resistant Staph. aureus 07/13/24 16:38 Blood Culture (Wb) - Arm Right Blood Culture - Preliminary 07/13/24 16:24 Wound - Right Foot Wound Culture - Preliminary Staphylococcus aureus 07/13/24 16:38 Blood Culture (Wb) - Right Hand Blood Culture - Preliminary 07/13/24 15:50 Mucosa - Nose SARS-CoV-2, Influenza & RSV (PCR) - Final Radiography Diagnostic Testing: Radiology Impression Foot X-Ray 07/13/24 14:45 IMPRESSION: Soft tissue swelling with small amount of air within the soft tissues. Infection should be ruled out. 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 Reading Location: [facility] Chest X-Ray 07/13/24 16:20 IMPRESSION: No active cardiopulmonary disease. No significant interval change since 07/07/2024. Reading Location: [facility] Physical Exam Narrative Vascular: DP and PT pulses are monophasic on Doppler. CFT is less than 5 seconds. Blanchable erythema to the right lower extremity and improving. Skin temp gradient warm to warm from proximal ankle to distal transmetatarsal amputation stump. Neurological: Light touch is intact. Protective station is diminished. Patient does respond to painful stimuli. Dermatological. Full-thickness ulceration to the distal aspect of right transmetatarsal amputation stump, measurin.5 x 3.0 x 3.0. Positive probe to bone secondary to wound dehiscence. Necrotic metatarsals are appreciated to the lateral aspect of the stump site. Malodor present but improved. Positive probe to bone. Excisional debridement down to including subcutaneous tissue, fascia, muscle and bone to the right transmetatarsal amputation stump with a number 7 mm dermal curette without incident. Predebridement measurement was 2.8 x 10.3 x 2.8 cm. Post right measurement was 3.0 x 10.5 x 3.0 cm. Musculoskeletal: Mild pain on palpation to the right lower extremity at the level of the heel and transmetatarsal amputation stump. No pain with calf pressure. Const oriented x3 and no apparent distress Assessment & Plan Assessment/Plan (1) Chronic osteomyelitis of right foot: PLAN: Patient was examined and evaluated. All findings were discussed with the patient. All questions were answered to the patient satisfaction. 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 Evidence of soft tissue defect to the distal lateral aspect of the transmetatarsal amputation site. Evidence of calcified vessels. Evidence of soft tissue air. No emphysema appreciated. Excisional debridement down to including subcutaneous tissue, fascia, muscle and bone to the right transmetatarsal amputation stump with a number 7 mm dermal curette without incident. Predebridement measurement was 2.8 x 10.3 x 2.8 cm. Post right measurement was 3.0 x 10.5 x 3.0 cm. Full-thickness wound was flushed with copious normal saline. The areas were cleaned and patted dry. The open incision was dressed with Betadine soaked gauze, dry sterile dressing and a light Alessandro bandage was wrapped. Plan will be to take the patient to the operating room on 07/16/2024 in the afternoon, depending on OR availability. Surgical plan: Incision and drainage, incision bone cortex, delayed primary closure, right lower extremity please clear the patient medically with recommendations. Will plan to do this under either straight local or under monitored anesthesia care with local block. Wound Cx: S aureus Blood culture: MRSA WBC: 19.9 -> 18.3 ESR: 53 CRP: 301.0 Glucose: 244 HbA1c: 7.7 (06/08/2024) Medicine: On board, medical management, IV vancomycin Podiatry will continue to follow while patient is in house. If there are any questions or concerns please reach out to Dr. Garcia Thank you for the consultation and letting me be involved in the patient care. (2) Cellulitis of right lower limb: (3) Pain in right foot: (4) Other specified peripheral vascular diseases:
[2024-07-14] MEDS: Meropenem 1 GM in 0.9% Normal Saline (100mL MB+) 100 ML IV (14:09)
--- NOTE | 2024-07-14 14:11 | ECHOD_ITS ---
Reason For Study Reason For Study: MRSA BACTEREMIA Procedure This was a 2D Doppler, Color Flow transthoracic echocardiogram. Exam performed portable in patient room. Left Ventricle Normal LV size. The estimated ejection fraction is 60 %. Unable to assess diastolic dysfunction. No regional wall motion abnormalities noted. Right Ventricle Normal RV size. Normal systolic function. Atria The left atrium is mildly enlarged. Normal right atrium. No doppler evidence for ASD. Mitral Valve There is moderate mitral annular calcification. There is no mitral valve stenosis. Trivial mitral valve insufficiency. Tricuspid Valve There is no tricuspid stenosis. Trivial tricuspid valve insufficiency. Pulmonary artery systolic pressure is 50 mmHg. Aortic Valve Trisinus/trileaflet aortic valve. There is no aortic stenosis. No aortic valve insufficiency. Pulmonic Valve There is no pulmonic valvular stenosis. No pulmonic valve insufficiency. Great Vessels Normal sized aortic root. Pericardium/Pleural No pericardial effusion. MMode/2D Measurements & Calculations LVIDd: 4.5 cm IVSd: 1.3 cm Ao root diam: 2.7 cm LVIDs: 3.1 cm LVPWd: 1.7 cm FS: 31.9 % LAV(MOD-bp): 80.6 ml LVAd ap4: 28.8 cm2 SV(MOD-sp4): 40.5 ml LAV(MOD-bp) Indexed: 39.2 ml/m2 LVLd ap4: 7.6 cm SI(MOD-sp4): 19.7 ml/m2 LAV(MOD-sp2): 66.3 ml EDV(MOD-sp4): 87.9 ml LAV(MOD-sp4): 79.4 ml EDV(sp4-el): 92.8 ml LVAs ap4: 18.3 cm2 LVLs ap4: 6.2 cm ESV(MOD-sp4): 47.4 ml ESV(sp4-el): 45.8 ml EF(MOD-sp4): 46.0 % EF(sp4-el): 50.6 % SV(sp4-el): 47.0 ml LA A4 area: 24.0 cm2 LA dimension(2D): 4.4 cm RA A4 area: 15.9 cm2 Time Measurements MV dec time: 0.16 sec Doppler Measurements & Calculations MV E max ryan: 122.2 cm/sec Lat Peak E' Ryan: 15.1 cm/sec Med Peak E' Ryan: 8.6 cm/sec MV A max ryan: 56.8 cm/sec E/E' lat: 8.1 E/E' med: 14.2 MV E/A: 2.1 MV V2 max: 176.2 cm/sec Ao V2 max: 175.4 cm/sec MV max P.4 mmHg MV dec slope: 750.3 cm/sec2 Ao max P.3 mmHg MV V2 mean: 90.7 cm/sec Ao V2 mean: 119.2 cm/sec MV mean P.1 mmHg Ao mean P.6 mmHg MV V2 VTI: 41.7 cm Ao V2 VTI: 42.6 cm AV (velocity ratio): 1.0 LV V1 max: 173.4 cm/sec PA V2 max: 109.8 cm/sec TR max ryan: 321.9 cm/sec LV V1 max P.0 mmHg PA V2 mean: 64.7 cm/sec TR max P.4 mmHg LV V1 mean P.2 mmHg LV V1 mean: 111.7 cm/sec LV V1 VTI: 43.4 cm ECHO/Echo Complete Interpretation Summary The estimated ejection fraction is 60 %. Unable to assess diastolic dysfunction. The left atrium is mildly enlarged. Trivial mitral valve insufficiency. Ordering Physician: Juan Antonio Holden Referring Physician: Chung Humphreys Performed By: Rosy Araiza RCS
[2024-07-14] MEDS: Aspirin E.C. 81 MG Tablet PO (14:16)
[2024-07-14 14:48] LABS: Bedside Glucose 183 mg/dL (74-106)
[2024-07-14] MEDS: Vancomycin IV 500 MG/100 ML BAG 100 MG IV (16:44)
[2024-07-14 17:50] LABS: Bedside Glucose 103 mg/dL (74-106)
[2024-07-14] MEDS: Clopidogrel Bisulfate 75 MG Tablet PO (21:44)
[2024-07-14 22:18] LABS: Bedside Glucose 196 mg/dL (74-106)
[2024-07-14] MEDS: Acetaminophen 325 MG Tablet 650 MG PO (22:46)
[2024-07-14] MEDS: oxyCODONE 5 MG Tablet 2.5 MG PO (22:46)
[2024-07-15] VITALS (7 sets, daily range): BP systolic 103–135; BP diastolic 41–70; PULSE 58–65; RESP 18–24; TEMP 36.4–36.6; O2SAT 95–99; BMI 34.0
[2024-07-15] MEDS: Insulin Lispro 100 UNIT/ML INSULN.PEN SC (06:22)
[2024-07-15 06:51] LABS: Absolute Lymphocyte Count 2.18 X10^3/uL (0.83-4.51); Absolute Neutrophil Count 14.1 X10^3/uL (2.0-7.7); Basophil# 0.04 X10^3/uL; Basophil% 0.2 % (0-1); Eosinophil# 0.22 X10^3/uL; Eosinophils% 1.2 % (0-5); Hematocrit 26.7 % (40-54); Hemoglobin 7.8 g/dL (13.0-16.5); Lymphocyte # 2.18 X10^3/ul (0.83-4.51); Lymphocyte % 11.9 % (19-41); Mean Corp Hgb Conc 29.2 g/dL (32-36); Mean Corpuscular Hgb 27.9 pg (27.0-32.0); Mean Corpuscular Volume 95.4 fL (80-94); Mean Platelet Vol. 10.7 fl (6.2-12.0); Monocyte% 7.1 % (0-10); NRBC Flagged by Analyzer 0 % (0-5); Neutrophil # 14.13 X10^3/uL (2.7-7.7); Neutrophil % 77.1 % (47-70); Platelet Count 361 K/mm3 (150-450); RBC Distribution Width CV 17.6 % (11.6-14.6); RBC Distribution Width SD 61.1 fl (35.1-43.9); White Blood Count 18.3 K/mm3 (4.4-11.0)
[2024-07-15 07:01] LABS: Bedside Glucose 214 mg/dL (74-106)
[2024-07-15 07:31] LABS: Anion Gap 9 (5-15); BUN 55 mg/dL (7-18); BUN/Creat Ratio 13.9 RATIO (10-20); Calcium,Total 8.8 mg/dL (8.5-10.1); Chloride 98 mmol/L (98-107); Creatinine, Serum 3.97 mg/dL (0.70-1.30); EST Glomerular Filtration Rate 15 mL/min (>60); Est Glom Filt Rate - Afr Amer 19 mL/min (>60); Estimated Creatinine Clearance 14.64 ml/min; Glucose 204 mg/dL (74-106); Potassium 3.5 mmol/L (3.5-5.1); Sodium Level 133 mmol/L (136-145)
[2024-07-15] MEDS: Aspirin E.C. 81 MG Tablet PO (09:08)
[2024-07-15] MEDS: Insulin Lispro 100 UNIT/ML INSULN.PEN 10 UNIT SC ×2 (09:09→12:47)
[2024-07-15] MEDS: Menthol/Lanolin/Calamine/Znox 113 GM Tube 1 APPLIC TOPICAL ×2 (12:39→21:46)
[2024-07-15] MEDS: Insulin Glargine-YFGN 100 UNIT/ML Pen 15 UNIT SC ×2 (12:49→21:47)
--- NOTE | 2024-07-15 13:02 | PCM.PN.HOSP ---
Reason for Visit Reason for Visit: Diagnoses Type 2 diabetes mellitus with other skin complications (07/13/24) Other specified peripheral vascular diseases (07/13/24) Cellulitis of right lower limb (07/13/24) Local infection of the skin and subcutaneous tissue, unspecified (07/13/24) Pain in right foot (07/13/24) Other chronic osteomyelitis, right ankle and foot (07/13/24) Objective Data Objective Data Vital Signs: Vital Signs Temp Pulse Resp BP Pulse Ox O2 Del Method O2 Flow Rate 98 F 60 18 115/60 95 Room Air 2 07/15/24 10:00 07/15/24 10:30 07/15/24 10:30 07/15/24 10:00 07/15/24 10:30 07/15/24 10:30 07/13/24 23:13 Oxygen Flow Rate (L/min) 2 Oxygen Delivery Method Room Air Weight: 216 lb 11.43 oz Body Mass Index (BMI) 34.0 Intake & Output: Intake and Output for Last 24 Hours 07/13/24 07/14/24 07/15/24 23:59 23:59 23:59 Intake Total 670 / 920 870 / 1120 700 / 700 Output Total 1999 Balance 670 / 920 -1130 / -880 700 / 700 Lab / Micro Data 07/15/24 05:55 07/15/24 05:55 Labs: Laboratory Results - last 24 hr 07/14/24 12:09: POC Glucose 183 H 07/14/24 16:46: POC Glucose 103 07/14/24 22:00: POC Glucose 196 H 07/15/24 05:55: WBC 18.3 H, RBC 2.80 L, Hgb 7.8 L, Hct 26.7 L, MCV 95.4 H, MCH 27.9, MCHC 29.2 L D, RDW Std Deviation 61.1 H, RDW Coeff of Frances 17.6 H, Plt Count 361, MPV 10.7, Immature Gran % (Auto) 2.500 H, Neut % (Auto) 77.1 H, Lymph % (Auto) 11.9 L, Dougherty % (Auto) 7.1, Eos % (Auto) 1.2, Baso % (Auto) 0.2, Absolute Neuts (auto) 14.1 H, Absolute Lymphs (auto) 2.18, Nucleated RBC % 0, Sodium 133 L, Potassium 3.5, Chloride 98, Carbon Dioxide 27.0, Anion Gap 9, BUN 55 H, Creatinine 3.97 H, Estim Creat Clear Calc 14.64, Est GFR (MDRD) Af Amer 19 L, Est GFR (MDRD) Non-Af 15 L, BUN/Creatinine Ratio 13.9, Glucose 204 H, Calcium 8.8 07/15/24 06:21: POC Glucose 214 H Micro: Microbiology 07/13/24 16:38 Blood Culture (Wb) - Right Hand Blood Culture - Preliminary Staphylococcus aureus 07/13/24 16:38 Blood Culture (Wb) - Arm Right Bacteria Detection (PCR) - Final Meth. resistant Staph. aureus 07/13/24 16:38 Blood Culture (Wb) - Arm Right Blood Culture - Preliminary Staphylococcus aureus 07/13/24 16:24 Wound - Right Foot Gram Stain - Final 07/13/24 16:24 Wound - Right Foot Wound Culture - Final Meth. resistant Staph. aureus 07/13/24 15:50 Mucosa - Nose SARS-CoV-2, Influenza & RSV (PCR) - Final Physical Exam Narrative Seen and examined. Patient has history of diabetic ulcer on the right foot status post transmetatarsal amputation. Osteomyelitis of right foot. Blood cultures x 2 positive of MRSA as well as wound culture. Had bowel movement yesterday. Physical exam General: Alert, Oriented x3, Cooperative HEENT: Atraumatic, PERRLA, EOMI, Normocephalic Oral: No Gingival or Mucosal Lesions/ Ulcerations Neck: Supple, No JVD, Negative Carotid Bruits Chest wall/Lungs: Air entry diminished in bilateral lung bases. No crepitation/rhonchi Cardiovascular: Regular rate, Regular Rhythm, Normal S1, Normal S2, No M/G/R. PAD Abdomen: Bowel Sounds Present, Soft, Non Tender, Non-Distended : On hemodialysis. Little urine output. No dysuria. No renal angle tenderness. No suprapubic tenderness. Extremities: No edema, Capillary Refill Less than 3 Seconds Skin: Ulcer over right transmetatarsal amputation stump. Had transmetatarsal amputation on 06/06/2024. Musculoskeletal: Right foot toes have thick sebum deposits and thickened skin. No Tenderness to Palpation of Joints or Extremities Neurological: Cranial nerves II-XII grossly intact, DTR 2+/4. No acute focal neurological deficit. Psych/Mental Status: Normal Affect, Appropriate. Assessment & Plan Assessment/Plan (1) Diabetic infection of right foot: PLAN: Plan 89-year-old gentleman was admitted for evaluation of right foot infection/osteomyelitis from the group home. Has peripheral arterial disease of right lower leg, ischemic toes and had transmitted amputation on June 06, 2024 and then # Concern for right foot infection in setting of recent amputations and wound VAC: Patient also had excisional debridement in podiatry office and during previous hospitalization in June 2024. 07/14: both blood cultures x 2 prelim shows GPC in clusters, later identified MRSA.. Patient on IV vancomycin and meropenem. Foot x-ray shows soft tissue swelling with small amount of air within it. Lucency in the visualized bony structures suggestive of diffuse osteoporosis. Discussed with the gis manager.ID and 2D echo ordered. Patient afebrile. 07/15: There is proposed surgery of right foot debridement tomorrow AM. Continue IV antibiotic vancomycin and meropenem. 2D echo is ordered. ID consult #ESRD on HD: Pipe Line Repairer is consulted. Patient had hemodialysis today 07/15: Hemodialysis as per schedule #Type 2 diabetes mellitus, uncontrolled hyperglycemia: Glucose in BMP is 244 and average around 1 85-240. Lantus insulin dose increased 15 units twice daily and started on scheduled Humalog 10 units 3 times daily. Patient also had blood sugar 132 yesterday. Recent A1c on June 08, 2024, 7.7% # History of PAD -Complicates presenting problem -Patient chronically on aspirin and Plavix # History of chronic heart failure preserved ejection fraction -Given patient's vital stability we will hold off on any excessive IV fluids -Monitor daily weights and I's and O's -Continue home torsemide Chronic severe anemia: Patient hemoglobin is between 7 to 8 g. On baseline. Normocytic normochromic anemia. Platelet count normal. #DVT ppx: SCDs Microbiology Past 72 Hours 07/13/24 16:38 Blood Culture (Wb) - Right Hand Blood Culture - Preliminary Staphylococcus aureus 07/13/24 16:38 Blood Culture (Wb) - Arm Right Bacteria Detection (PCR) - Final Meth. resistant Staph. aureus 07/13/24 16:38 Blood Culture (Wb) - Arm Right Blood Culture - Preliminary Staphylococcus aureus 07/13/24 16:24 Wound - Right Foot Gram Stain - Final 07/13/24 16:24 Wound - Right Foot Wound Culture - Final Meth. resistant Staph. aureus 07/13/24 15:50 Mucosa - Nose SARS-CoV-2, Influenza & RSV (PCR) - Final Laboratory Results 07/14/24 12:09: POC Glucose 183 H 07/14/24 16:46: POC Glucose 103 07/14/24 22:00: POC Glucose 196 H 07/15/24 05:55: WBC 18.3 H, RBC 2.80 L, Hgb 7.8 L, Hct 26.7 L, MCV 95.4 H, MCH 27.9, MCHC 29.2 L D, RDW Std Deviation 61.1 H, RDW Coeff of Frances 17.6 H, Plt Count 361, MPV 10.7, Immature Gran % (Auto) 2.500 H, Neut % (Auto) 77.1 H, Lymph % (Auto) 11.9 L, Dougherty % (Auto) 7.1, Eos % (Auto) 1.2, Baso % (Auto) 0.2, Absolute Neuts (auto) 14.1 H, Absolute Lymphs (auto) 2.18, Nucleated RBC % 0, Sodium 133 L, Potassium 3.5, Chloride 98, Carbon Dioxide 27.0, Anion Gap 9, BUN 55 H, Creatinine 3.97 H, Estim Creat Clear Calc 14.64, Est GFR (MDRD) Af Amer 19 L, Est GFR (MDRD) Non-Af 15 L, BUN/Creatinine Ratio 13.9, Glucose 204 H, Calcium 8.8 07/15/24 06:21: POC Glucose 214 H Charges/Coding Visit Charges Inpatient E&M: 35018 Subs Hosp L2
[2024-07-15 13:13] LABS: Bedside Glucose 141 mg/dL (74-106)
--- NOTE | 2024-07-15 13:15 | RAD_ITS ---
PROCEDURE: FOOT MIN 3 VIEWS REASON FOR EXAM: Rule out gas infection, right foot TECHNIQUE: Three views of the right foot COMPARISON: None. FINDINGS: RIGHT FOOT: Transmetatarsal amputation.. No suspicious bone lesion. No osseous erosions. Degenerative changes in the tarsals and calcaneus No abnormal foci of air in the soft tissues RAD/Foot min 3 Views IMPRESSION: No radiographic evidence of bony erosions or abnormal gas to suggest osteomyeli tis or infection Reading Location: [facility]
[2024-07-15] MEDS: Meropenem 1 GM in 0.9% Normal Saline (100mL MB+) 100 ML IV (15:11)
[2024-07-15 17:25] LABS: Bedside Glucose 57 mg/dL (74-106)
[2024-07-15] MEDS: Clopidogrel Bisulfate 75 MG Tablet PO (21:47)
[2024-07-15] MEDS: Juven (unflavored) Packet 1 PACKET PO (21:47)
[2024-07-15] MEDS: oxyCODONE 5 MG Tablet 2.5 MG PO (21:54)
[2024-07-15] MEDS: Acetaminophen 325 MG Tablet 650 MG PO (21:54)
[2024-07-15] MEDS: BENZOCAINE/MENTHOL 1 LOZENGE 2 LOZENGE MUCOUS MEM (22:15)
[2024-07-15 22:49] LABS: Bedside Glucose 138 mg/dL (74-106)
[2024-07-16] VITALS (14 sets, daily range): BP systolic 98–134; BP diastolic 38–64; PULSE 56–76; RESP 16–20; TEMP 36.5–37.1; O2SAT 93–99; BMI 32.7
[2024-07-16] MEDS: oxyCODONE 5 MG Tablet 2.5 MG PO (02:42)
--- NOTE | 2024-07-16 05:55 | EKG12_ITS ---
Test Reason : PRE-OP Blood Pressure : */* mmHG Vent. Rate : 46 BPM Atrial Rate : * BPM P-R Int : * ms QRS Dur : 106 ms QT Int : 468 ms P-R-T Axes : * -8 90 degrees QTcB Int : 409 ms Atrial fibrillation with slow ventricular response Abnormal ECG When compared with ECG of 07-Jul-2024 18:32, Vent. rate has decreased by 23 bpm QT has shortened Reconfirmed by Warren Jackson ([id number]), editor trade journal EVENS KEVIN ([id number]) on 07/16/2024 10:40:01 AM Referred By: Chung Humphreys Confirmed By: Warren Jackson
[2024-07-16 07:01] LABS: Bedside Glucose 122 mg/dL (74-106)
[2024-07-16 07:20] LABS: Absolute Lymphocyte Count 2.43 X10^3/uL (0.83-4.51); Absolute Neutrophil Count 12.8 X10^3/uL (2.0-7.7); Basophil# 0.04 X10^3/uL; Basophil% 0.2 % (0-1); Eosinophil# 0.27 X10^3/uL; Eosinophils% 1.6 % (0-5); Hematocrit 25.2 % (40-54); Hemoglobin 7.5 g/dL (13.0-16.5); Lymphocyte # 2.43 X10^3/ul (0.83-4.51); Mean Corp Hgb Conc 29.8 g/dL (32-36); Mean Corpuscular Hgb 28.2 pg (27.0-32.0); Mean Corpuscular Volume 94.7 fL (80-94); Mean Platelet Vol. 10.6 fl (6.2-12.0); Monocyte% 7.5 % (0-10); NRBC Flagged by Analyzer 0 % (0-5); Neutrophil # 12.79 X10^3/uL (2.7-7.7); Neutrophil % 73.5 % (47-70); Platelet Count 378 K/mm3 (150-450); RBC Distribution Width CV 17.7 % (11.6-14.6); RBC Distribution Width SD 60.4 fl (35.1-43.9); Red Blood Count 2.66 M/mm3 (4.6-6.2); White Blood Count 17.4 K/mm3 (4.4-11.0)
[2024-07-16 07:37] LABS: Anion Gap 11 (5-15); BUN 71 mg/dL (7-18); BUN/Creat Ratio 13.8 RATIO (10-20); Calcium,Total 8.7 mg/dL (8.5-10.1); Chloride 97 mmol/L (98-107); Creatinine, Serum 5.13 mg/dL (0.70-1.30); EST Glomerular Filtration Rate 11 mL/min (>60); Est Glom Filt Rate - Afr Amer 14 mL/min (>60); Estimated Creatinine Clearance 11.13 ml/min; Glucose 127 mg/dL (74-106); Potassium 4.3 mmol/L (3.5-5.1); Sodium Level 134 mmol/L (136-145)
--- NOTE | 2024-07-16 08:08 | WOUNDNOTE ---
wound photo: right foot
--- NOTE | 2024-07-16 08:08 | WOUNDNOTE ---
wound photo: right foot
[2024-07-16 08:19] LABS: International Normalized Ratio 1.3; Prothrombin Time (Protime)PT. 16.8 SECONDS (11.7-14.9)
[2024-07-16 08:20] LABS: Partial Thromboplast Time 39.7 Seconds (24.1-36.2)
[2024-07-16] MEDS: Menthol/Lanolin/Calamine/Znox 113 GM Tube 1 APPLIC TOPICAL ×2 (08:33→23:27)
--- NOTE | 2024-07-16 09:13 | CASEMGMT ---
Discharge Planning Updates sent to [facility]. Asked if precert is needed and if pt can return while waiting on precert. Awaiting response. Alanna Gaston DC Planning Asst.
--- NOTE | 2024-07-16 09:47 | PN.HOSP_ITS ---
Reason for Visit Reason for Visit: Diagnoses Type 2 diabetes mellitus with other skin complications (07/13/24) Other specified peripheral vascular diseases (07/13/24) Cellulitis of right lower limb (07/13/24) Local infection of the skin and subcutaneous tissue, unspecified (07/13/24) Pain in right foot (07/13/24) Other chronic osteomyelitis, right ankle and foot (07/13/24) Subjective Subjective Patient sitting up in bed, patient for debridement today, denies any new or acute complaints Objective Data Objective Data Vital Signs: Vital Signs Temp Pulse Resp BP Pulse Ox O2 Del Method O2 Flow Rate 98.3 F 76 18 116/45 L 97 Room Air 2 07/16/24 08:35 07/16/24 08:35 07/16/24 08:39 07/16/24 08:35 07/16/24 08:39 07/16/24 08:39 07/13/24 23:13 Oxygen Flow Rate (L/min) 2 Oxygen Delivery Method Room Air Weight: 94.7 kg Body Mass Index (BMI) 32.7 Intake & Output: Intake and Output for Last 24 Hours 07/14/24 07/15/24 07/16/24 23:59 23:59 23:59 Intake Total 870 / 1120 1220 / 1420 200 / 200 Output Total 1999 / 1999 Balance -1130 / -880 1220 / 1420 200 / 200 Lab / Micro Data 07/16/24 06:45 07/16/24 06:45 Labs: Laboratory Results - last 24 hr 07/15/24 12:37: POC Glucose 141 H 07/15/24 17:03: POC Glucose 57 L 07/15/24 21:30: POC Glucose 138 H 07/16/24 06:27: POC Glucose 122 H 07/16/24 06:45: WBC 17.4 H, RBC 2.66 L, Hgb 7.5 L, Hct 25.2 L, MCV 94.7 H, MCH 28.2, MCHC 29.8 L, RDW Std Deviation 60.4 H, RDW Coeff of Frances 17.7 H, Plt Count 378, MPV 10.6, Immature Gran % (Auto) 3.200 H, Neut % (Auto) 73.5 H, Lymph % (Auto) 14.0 L, [place] % (Auto) 7.5, Eos % (Auto) 1.6, Baso % (Auto) 0.2, Absolute Neuts (auto) 12.8 H, Absolute Lymphs (auto) 2.43, Nucleated RBC % 0, PT 16.8 H, INR 1.3, APTT 39.7 H, Sodium 134 L, Potassium 4.3, Chloride 97 L, Carbon Dioxide 26.0, Anion Gap 11, BUN 71 H, Creatinine 5.13 H, Estim Creat Clear Calc 11.13, E st GFR (MDRD) Af Amer 14 L, Est GFR (MDRD) Non-Af 11 L, BUN/Creatinine Ratio 13.8, Glucose 127 H, Hemoglobin A1c 6.0 H, Calcium 8.7 Micro: Microbiology 07/13/24 16:38 Blood Culture (Wb) - Right Hand Blood Culture - Final Meth. resistant Staph. aureus 07/13/24 16:38 Blood Culture (Wb) - Arm Right Bacteria Detection (PCR) - Final Meth. resistant Staph. aureus 07/13/24 16:38 Blood Culture (Wb) - Arm Right Blood Culture - Final Meth. resistant Staph. aureus 07/13/24 16:24 Wound - Right Foot Gram Stain - Final 07/13/24 16:24 Wound - Right Foot Wound Culture - Final Meth. resistant Staph. aureus 07/13/24 15:50 Mucosa - Nose SARS-CoV-2, Influenza & RSV (PCR) - Final Radiography Diagnostic Testing: Radiology Impression Foot X-Ray 07/15/24 13:15 IMPRESSION: No radiographic evidence of bony erosions or abnormal gas to suggest osteomyelitis or infection Reading Location: [facility] Physical Exam Narrative General: Alert, no apparent distress HEENT: Atraumatic, normocephalic Eyes: Anicteric, normal conjunctiva, extraocular movements grossly intact Neck: Supple Respiratory: Clear to auscultation bilaterally, normal respiratory effort Cardiovascular: Regular rate GI: Soft, nontender, nondistended Extremities: No edema Musculoskeletal: Moving all extremities Neuro: No overt focal neurological deficits Skin: No rashes appreciated, right lower extremity wrapped, no drainage on the dressing Psych: Cooperative Assessment & Plan Assessment/Plan (1) Diabetic infection of right foot: PLAN: Plan # Right foot infection secondary to MRSA in setting of recent amputations and wound VAC -Patient was a nursing facility with wound VAC being followed by podiatry and wound care -In the ED white blood cell count 19.9 with a CRP of 301 and foot x-ray with swelling -Podiatry evaluated at the time and recommended admission with cultures, antibiotics and they would follow -Patient found to have MRSA both in foot and blood -Patient on IV antibiotics -ID consult -Wound nurse consult -Podiatry to take patient 07/16/2024 for debridement # MRSA bacteremia -Secondary to right foot infection -Will repeat cultures -Echo ordered -ID consult -Continue vancomycin #ESRD on HD -Consult nephrology -Renal diet -Daily weights, I's and O's #Type 2 diabetes mellitus -Glucose checks and sliding scale insulin -Patient presently on 15 units twice daily of long-acting insulin with lispro 10 3 times daily and sliding scale -Glucose only 122 this a.m. and yesterday he had a glucose of 50 7 in the evening, will decrease insulin dosing to avoid further hypoglycemia # History of PAD -Complicates presenting problem -Patient chronically on aspirin and Plavix # History of chronic heart failure preserved ejection fraction -Given patient's vital stability we will hold off on any excessive IV fluids -Monitor daily weights and I's and O's -Continue home torsemide #DVT ppx: SCDs Jayla Osuna MD Charges/Coding Visit Charges Inpatient E&M: 75564 Subs Hosp L2
--- NOTE | 2024-07-16 11:05 | PCM.CONS.GEN ---
Assessment & Plan Assessment/Plan (1) Diabetic infection of right foot: (2) End stage renal disease: (3) MRSA bacteremia: PLAN: Due to R foot infection. Dr. Garcia following. OR planned. Will repeat bcx and check TTE. Cont vanc/juancarlos. Will follow, thank you HPI Consult Data Date of Consult: 07/16/24 HPI Narrative Reason for Consultation: bacteremia HPI Narrative: PERLA LUBIN, is a 89 M with ESRD, LUE fistula, prior R foot TMA, presented 07/13 with acute worsening R foot wound. Denies fever or chills, no pain in foot, no issues with fistula. Found to have necrotic R foot wound. Podiatry consulted. On vanc/juancarlos, feeling a little better. Full ROS performed and neg except as noted above. 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 ESRD (end stage renal disease) Type 2 diabetes mellitus with foot ulcer Diabetes mellitus with diabetic 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 Pre-op testing Loose, teeth Wears glasses Cancer Dialysis patient Kidney disease Non-smoker Edema Syncope Chronic diastolic (congestive) heart failure (04/18/20) Paroxysmal atrial fibrillation Sinus bradycardia Type 2 diabetes mellitus Hyperkalemia Swelling of both lower extremities HLD (hyperlipidemia) Left bundle-branch block 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 Abnormal electrocardiogram Home Medications ?Medication ?Instructions ?Recorded ?Last Taken ?Type aspirin 81 mg tablet,delayed 81 mg PO DAILY heart health 07/01/20 06/05/24 History release (Adult Aspirin Regimen) torsemide 100 mg tablet 100 mg PO MOWEFR water pill 04/14/24 06/04/24 History insulin glargine 100 unit/mL (3 20 unit (0.2 mL) subcut DINNER 04/24/24 06/05/24 Rx mL) subcutaneous pen diabetes 30 days #0 mL insulin lispro 100 unit/mL See Protocol subcut ACHS dm 05/04/24 Unknown History subcutaneous pen (Humalog KwikPen (U-100) Insulin) arginine 7 gram-glutamine 7 1 ea PO BID 05/22/24 06/05/24 History gram-calcium HMB 1.5 gram oral powder pack (Dustin) nystatin 100,000 unit/gram topical 1 applic topical DAILY 05/22/24 06/05/24 History cream nut.tx.gluc.intol,lac-free,soy 240 ml PO DAILY 06/04/24 06/05/24 History (Glucerna oral liquid) sennosides 8.6 mg-docusate sodium 1 tab-cap PO BID PRN PRN 06/04/24 06/05/24 History 50 mg tablet (Stimulant Laxative Constipation Plus) clopidogrel 75 mg tablet 75 mg PO QHS 07/02/24 Unknown History acetaminophen 325 mg tablet 650 mg PO Q8H PRN PRN Pain 1-10 Or 07/13/24 Unknown History Fever >100.7 cholecalciferol (vitamin D3) 125 125 mcg PO DAILY 07/13/24 Unknown History mcg (5,000 unit) capsule insulin lispro 100 unit/mL 10 unit subcut TID 07/13/24 Unknown History subcutaneous pen insulin lispro 100 unit/mL 10 unit subcut DAILY 07/13/24 Unknown History subcutaneous pen (Humalog KwikPen (U-100) Insulin) oxycodone 5 mg tablet 2.5 mg PO DAILY PRN pain 07/13/24 Unknown History oxycodone 5 mg tablet 2.5 mg PO Q6H PRN pain 07/13/24 Unknown History oxycodone-acetaminophen 2.5 mg-325 1 tab PO Q8H 07/13/24 Unknown History mg tablet (Endocet) Allergy/AdvReac Type Severity Reaction Status Date / Time pioglitazone (From Actos) Allergy fatigue Verified 07/13/24 14:00 simvastatin (From Zocor) Allergy myalgia Verified 07/13/24 14:00 sitagliptin (From Januvia) Allergy unknown Verified 07/13/24 14:00 Family History Mother Hypertension Father Diabetes COPD (chronic obstructive pulmonary disease) Surgical History Hx of foot surgery History of cataract extraction History of ligation of vein History of arteriovenostomy for renal dialysis History of inguinal hernia repair History of appendectomy Social History Smoking Status: Never smoker alcohol intake: never substance use type: does not use caffeine: Yes Type: coffee Number of servings: 1 what type of physical activity do you participate in: none seatbelt use: always do you feel safe at home: Yes Physical Exam Const alert and no apparent distress General Appearance: cooperative HEENT normocephalic and head/scalp atraumatic Eyes PERRL and EOMs intact bilaterally Neck supple and No nodes Resp normal air movement and clear to auscultation bilaterally Cardio regular rate, regular rhythm and no murmurs GI soft to palpation, non-tender and non-distended Extremity General Extremity: edema Skin Skin Narrative: R foot s/p TMA with necrotic wound. L thumb splinter hemorrhage. Neuro CN's II-XII intact bilaterally Lab / Micro Data Attestation: I reviewed the patient's lab results. 07/16/24 06:45 07/16/24 06:45 Labs: Laboratory Results - last 24 hr 07/15/24 12:37: POC Glucose 141 H 07/15/24 17:03: POC Glucose 57 L 07/15/24 21:30: POC Glucose 138 H 07/16/24 06:27: POC Glucose 122 H 07/16/24 06:45: WBC 17.4 H, RBC 2.66 L, Hgb 7.5 L, Hct 25.2 L, MCV 94.7 H, MCH 28.2, MCHC 29.8 L, RDW Std Deviation 60.4 H, RDW Coeff of Frances 17.7 H, Plt Count 378, MPV 10.6, Immature Gran % (Auto) 3.200 H, Neut % (Auto) 73.5 H, Lymph % (Auto) 14.0 L, [place] % (Auto) 7.5, Eos % (Auto) 1.6, Baso % (Auto) 0.2, Absolute Neuts (auto) 12.8 H, Absolute Lymphs (auto) 2.43, Nucleated RBC % 0, PT 16.8 H, INR 1.3, APTT 39.7 H, Sodium 134 L, Potassium 4.3, Chloride 97 L, Carbon Dioxide 26.0, Anion Gap 11, BUN 71 H, Creatinine 5.13 H, Estim Creat Clear Calc 11.13, Est GFR (MDRD) Af Amer 14 L, Est GFR (MDRD) Non-Af 11 L, BUN/Creatinine Ratio 13.8, Glucose 127 H, Hemoglobin A1c 6.0 H, Calcium 8.7 Micro: Microbiology 07/13/24 16:24 Wound - Right Foot Gram Stain - Final 07/13/24 16:24 Wound - Right Foot Wound Culture - Final Meth. resistant Staph. aureus 07/13/24 16:24 Wound - Right Foot Anaerobic Culture - Preliminary Checking for anaerobes, further studies to follow. 07/13/24 16:38 Blood Culture (Wb) - Right Hand Blood Culture - Final Meth. resistant Staph. aureus 07/13/24 16:38 Blood Culture (Wb) - Arm Right Bacteria Detection (PCR) - Final Meth. resistant Staph. aureus 07/13/24 16:38 Blood Culture (Wb) - Arm Right Blood Culture - Final Meth. resistant Staph. aureus Imaging Radiology Impression Foot X-Ray 07/15/24 13:15 IMPRESSION: No radiographic evidence of bony erosions or abnormal gas to suggest osteomyelitis or infection Reading Location: [facility]
--- NOTE | 2024-07-16 11:16 | CASEMGMT ---
Social Work- SW met with pt son-in-law to discuss plans for pt to return to [facility] under skilled level of care. Pt son-in-law reports that he does not want pt to be transported at midnight like a previous stay and expressed concern about discharge planning. SW provided education and support. SW remains available to follow. Plan: [facility]; skilled level of care TERRI Keating
[2024-07-16 11:26] LABS: Bedside Glucose 118 mg/dL (74-106)
--- NOTE | 2024-07-16 13:13 | PCM.CONS.R ---
Assessment & Plan Assessment/Plan (1) End stage renal disease: PLAN: On hemodialysis Tuesday, , Tuesday schedule. Last dialysis was Tuesday, uneventful. Next dialysis tomorrow. Foot osteomyelitis with bacteremia. ID on consult. HPI Consult Data Date of Consult: 07/16/24 HPI Narrative Reason for Consultation: ESRD HPI Narrative: PERLA LUBIN, is a 89 M who presents To the hospital with worsening foot infection. He was recently admitted here with foot osteomyelitis, status post amputation. He was in a rehab and being followed by wound care and podiatry. Admitted for worsening infection of lower extremity. He is also MRSA positive in blood. Nephrology on consultation in view of ESRD. On hemodialysis Tuesday, , Tuesday. Last dialysis was Tuesday. Uneventful. Currently denies any complaints. 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 ESRD (end stage renal disease) Type 2 diabetes mellitus with foot ulcer Diabetes mellitus with diabetic 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 Pre-op testing Loose, teeth Wears glasses Cancer Dialysis patient Kidney disease Non-smoker Edema Syncope Chronic diastolic (congestive) heart failure (04/18/20) Paroxysmal atrial fibrillation Sinus bradycardia Type 2 diabetes mellitus Hyperkalemia Swelling of both lower extremities HLD (hyperlipidemia) Left bundle-branch block 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 Abnormal electrocardiogram Home Medications ?Medication ?Instructions ?Recorded ?Last Taken ?Type aspirin 81 mg tablet,delayed 81 mg PO DAILY heart health 07/01/20 06/05/24 History release (Adult Aspirin Regimen) torsemide 100 mg tablet 100 mg PO MOWEFR water pill 04/14/24 06/04/24 History insulin glargine 100 unit/mL (3 20 unit (0.2 mL) subcut DINNER 04/24/24 06/05/24 Rx mL) subcutaneous pen diabetes 30 days #0 mL insulin lispro 100 unit/mL See Protocol subcut ACHS dm 05/04/24 Unknown History subcutaneous pen (Humalog KwikPen (U-100) Insulin) arginine 7 gram-glutamine 7 1 ea PO BID 05/22/24 06/05/24 History gram-calcium HMB 1.5 gram oral powder pack (Dustin) nystatin 100,000 unit/gram topical 1 applic topical DAILY 05/22/24 06/05/24 History cream nut.tx.gluc.intol,lac-free,soy 240 ml PO DAILY 06/04/24 06/05/24 History (Glucerna oral liquid) sennosides 8.6 mg-docusate sodium 1 tab-cap PO BID PRN PRN 06/04/24 06/05/24 History 50 mg tablet (Stimulant Laxative Constipation Plus) clopidogrel 75 mg tablet 75 mg PO QHS 07/02/24 Unknown History acetaminophen 325 mg tablet 650 mg PO Q8H PRN PRN Pain 1-10 Or 07/13/24 Unknown History Fever >100.7 cholecalciferol (vitamin D3) 125 125 mcg PO DAILY 07/13/24 Unknown History mcg (5,000 unit) capsule insulin lispro 100 unit/mL 10 unit subcut TID 07/13/24 Unknown History subcutaneous pen insulin lispro 100 unit/mL 10 unit subcut DAILY 07/13/24 Unknown History subcutaneous pen (Humalog KwikPen (U-100) Insulin) oxycodone 5 mg tablet 2.5 mg PO DAILY PRN pain 07/13/24 Unknown History oxycodone 5 mg tablet 2.5 mg PO Q6H PRN pain 07/13/24 Unknown History oxycodone-acetaminophen 2.5 mg-325 1 tab PO Q8H 07/13/24 Unknown History mg tablet (Endocet) Allergy/AdvReac Type Severity Reaction Status Date / Time pioglitazone (From Actos) Allergy fatigue Verified 07/13/24 14:00 simvastatin (From Zocor) Allergy myalgia Verified 07/13/24 14:00 sitagliptin (From Januvia) Allergy unknown Verified 07/13/24 14:00 Family History Mother Hypertension Father Diabetes COPD (chronic obstructive pulmonary disease) Surgical History Hx of foot surgery History of cataract extraction History of ligation of vein History of arteriovenostomy for renal dialysis History of inguinal hernia repair History of appendectomy Social History Smoking Status: Never smoker alcohol intake: never substance use type: does not use caffeine: Yes Type: coffee Number of servings: 1 what type of physical activity do you participate in: none seatbelt use: always do you feel safe at home: Yes ROS ROS Narrative negative except above Physical Exam Narrative Alert awake oriented x 3 no obvious distress no pallor no icterus no JVD s1s2 no murmurs lungs clear abdomen soft no organomegaly no edema no cyanosis Lab / Micro Data 07/16/24 06:45 07/16/24 06:45 Labs: Laboratory Results - last 24 hr 07/15/24 12:37: POC Glucose 141 H 07/15/24 17:03: POC Glucose 57 L 07/15/24 21:30: POC Glucose 138 H 07/16/24 06:27: POC Glucose 122 H 07/16/24 06:45: WBC 17.4 H, RBC 2.66 L, Hgb 7.5 L, Hct 25.2 L, MCV 94.7 H, MCH 28.2, MCHC 29.8 L, RDW Std Deviation 60.4 H, RDW Coeff of Frances 17.7 H, Plt Count 378, MPV 10.6, Immature Gran % (Auto) 3.200 H, Neut % (Auto) 73.5 H, Lymph % (Auto) 14.0 L, [place] % (Auto) 7.5, Eos % (Auto) 1.6, Baso % (Auto) 0.2, Absolute Neuts (auto) 12.8 H, Absolute Lymphs (auto) 2.43, Nucleated RBC % 0, PT 16.8 H, INR 1.3, APTT 39.7 H, Sodium 134 L, Potassium 4.3, Chloride 97 L, Carbon Dioxide 26.0, Anion Gap 11, BUN 71 H, Creatinine 5.13 H, Estim Creat Clear Calc 11.13, Est GFR (MDRD) Af Amer 14 L, Est GFR (MDRD) Non-Af 11 L, BUN/Creatinine Ratio 13.8, Glucose 127 H, Hemoglobin A1c 6.0 H, Calcium 8.7 07/16/24 10:56: POC Glucose 118 H Micro: Microbiology 07/13/24 16:24 Wound - Right Foot Gram Stain - Final 07/13/24 16:24 Wound - Right Foot Wound Culture - Final Meth. resistant Staph. aureus 07/13/24 16:24 Wound - Right Foot Anaerobic Culture - Preliminary Checking for anaerobes, further studies to follow. 07/13/24 16:38 Blood Culture (Wb) - Right Hand Blood Culture - Final Meth. resistant Staph. aureus 07/13/24 16:38 Blood Culture (Wb) - Arm Right Bacteria Detection (PCR) - Final Meth. resistant Staph. aureus 07/13/24 16:38 Blood Culture (Wb) - Arm Right Blood Culture - Final Meth. resistant Staph. aureus Imaging Radiology Impression Foot X-Ray 07/15/24 13:15 IMPRESSION: No radiographic evidence of bony erosions or abnormal gas to suggest osteomyelitis or infection Reading Location: [id number]
[2024-07-16] MEDS: Meropenem 1 GM in 0.9% Normal Saline (100mL MB+) 100 ML IV (13:54)
[2024-07-16 14:06] LABS: Pathologist Review Reviewed
--- NOTE | 2024-07-16 15:03 | RAD_ITS ---
PROCEDURE: Fluoroscopy use. REASON FOR EXAM: Pain. Incision, drainage procedure TECHNIQUE: A single C-arm spot image was obtained. COMPARISON: None. FINDINGS: A single C-arm spot image was obtained during incision/drainage procedure of the right foot. 10 seconds of fluoroscopic time was utilized. There appears to have been prior forefoot amputation. RAD/Foot 2 Views IMPRESSION: Documentation of fluoroscopy use during surgical procedure of the right foot. Please see the operative note for details. Reading Location: [facility]
--- NOTE | 2024-07-16 15:13 | PCM.PRE.AN2 ---
ASA Classification* ASA Classification ASA Classification: 4 Assessment & Plan Anesthesia* Anesthesia Assessment Anesthesia Assessment: Discussed sedation and/or anesthesia options, risks, benefits, and alternatives with patient/parents/legal guardian/POA. Questions invited. The patient/parents/legal guardian/POA seems to understand and agrees to proceed with anesthesia plan. Reviewed the physical assessment, medical history, allergy history and patient home medications list prior to surgery/procedure/anesthetic and documented any changes. Performed airway and anesthesia risk assessments. Anesthesia Type Anesthesia Type: General History Source History Obtained from:: Patient, Chart, Poor Historian and - (son in law at bedside) Anesthesia Focused Assessment* Temperature: 98.1 F Pulse Rate: 59 Blood Pressure: 133/64 Respiratory Rate: 18 Pulse Ox: 99 Oxygen Delivery Method: Nasal Cannula Oxygen Flow Rate (L/min): 2 Airway Assessment Mouth opens: >3 cm Mallampati Score: II Teeth Condition: Dentures, Full, Lower and Upper Neck Range of motion (ROM): Full ROM Focused Labs Anesthesia Preop lab: CBC WBC 17.4 K/mm3 (4.4-11.0) H 07/16/24 06:45 07/16/24 RBC 2.66 M/mm3 (4.6-6.2) L 07/16/24 06:45 07/16/24 Hgb 7.5 g/dL (13.0-16.5) L 07/16/24 06:45 07/16/24 Hct 25.2 % (40-54) L 07/16/24 06:45 07/16/24 Plt Count 378 K/mm3 (150-450) 07/16/24 06:45 07/16/24 CHEMISTRY Potassium 4.3 mmol/L (3.5-5.1) 07/16/24 06:45 07/16/24 Sodium 134 mmol/L (136-145) L 07/16/24 06:45 07/16/24 BUN 71 mg/dL (7-18) H 07/16/24 06:45 07/16/24 Creatinine 5.13 mg/dL (0.70-1.30) H 07/16/24 06:45 07/16/24 Glucose 127 mg/dL (74-106) H 07/16/24 06:45 07/16/24 POC Glucose 118 mg/dL (74-106) H 07/16/24 10:56 07/16/24 TSH 1.080 uIU/mL (0.358-3.740) 05/15/24 05:05 05/15/24 COAG PT 16.8 SECONDS (11.7-14.9) H 07/16/24 06:45 07/16/24 Lab additional comments: last dialyzed on tuesday (schedule is ) Pre-Assessment Diagnosis/Proposed Procedure Planned Operative Procedure(s): Incision and Drainage, Incision Bone Cortex, Delayed Primary Closure of Right Lower Extremity Anesthesia History 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 When Was Last Pacemaker Check QUESTION #4 FULL TEXT: You/Your Family Experience fever (hyperthermia) with Anesthesia Last Oral Intake Last Oral intake: Last Oral Intake NPO since Meds taken in AM with sips of water? Meds patient instructed to take am of surgery Any additional information?: Yes NPO since: 23:00 PONV PONV - mine motor operator: PONV - mine motor operator Female HX of Motion Sickness HX of N/V After Surgery Non-Smoker Duration of Surgery greater than 60 minutes Number of Risk Factors PONV Score Any additional information?: Yes Female: No HX of Motion Sickness: No HX of N/V After Surgery: No Non-Smoker: Yes Duration of Surgery greater than 60 minutes: Yes Number of Risk Factors: 2 PONV Score: Moderate Risk Height & Weight Height & Weight: Anesthesia: Height & Weight Height 5 ft 7 in 07/15/24 09:58 Weight: 94.7 kg 07/16/24 03:43 Body Mass Index (BMI) 32.7 07/16/24 03:43 Respiratory Assessment Respiratory Assessment - mine motor operator: Respiratory Tract Infection Hx - mine motor operator Hx Respiratory Tract Infection No 06/04/24 13:32 STOP Sleep Apnea STOP Sleep Apnea - mine motor operator: STOP Sleep Apnea - mine motor operator Hx Hypertension No 07/15/24 09:25 Hx Sleep Apnea No 07/13/24 18:33 CPAP No 06/06/24 09:35 BIPAP No 06/04/24 13:32 Do you snore loudly (louder Yes 07/13/24 18:33 than talking or can be heard Do you often feel tired/ Yes 07/13/24 18:33 fatigued/ sleepy during daytime? Has anyone observed you stop No 07/13/24 18:33 breathing during sleep? STOP Results Positive 07/13/24 18:33 QUESTION #5 FULL TEXT : Do you snore loudly (louder than talking or can be heard through closed doors)? Tobacco Use History Tobacco Use History - mine motor operator: Tobacco Use History - mine motor operator Tobacco Use Non-smoker 09/26/20 11:23 Smoking Status Never smoker 07/13/24 18:33 Hx Tobacco Use No 07/13/24 18:33 Years Smoking Packs Smoked per Day Smoking Cessation Date was within the last 15 years Hx Smoking Cessation Date Hx Smoking Cessation Counseling Hematologic Medial History Hematologic Hx - mine motor operator: Hematologic Medical Hx - manager division Hx of Blood Transfusion No 07/13/24 18:33 Hx of Transfusion in last 3 No 07/13/24 18:33 Months Date of Last Transfusion (if within last 3 months) Ever experience any problems No 07/13/24 18:33 with transfusion(s)? Specify any problems Hx of Preganancy in last 3 N/A 07/13/24 18:33 Months Nurse Filling Out Transfusion [email or web address] 07/13/24 18:33 & Questions: Date: 07/13/24 07/13/24 18:33 Time: 18:44 07/13/24 18:33 Patient unable to answer at this time (ie. confused, unrespo /Reproduction History /Reproductive History - mine motor operator: /Reproductive Hx- mine motor operator Hx Now Gestational Age (in weeks): EDC: Hx Hx Para Hx Section SAB No 06/04/24 13:32 Active Medications Active Medications: Current Medications Generic Name Dose Route Start Last Admin Trade Name Freq PRN Reason Stop Dose Admin Acetaminophen 650 mg 07/13/24 18:39 07/15/24 21:54 Acetaminophen 325 Mg Tablet PO 650 mg Q6H PRN PRN Administration Pain 1-10 Or Fever >100.7 Albuterol Sulfate 2.5 mg 07/13/24 18:39 Albuterol 2.5 Mg/3 Ml Vial.Neb. INHALATION Q2H PRN PRN SOB &/OR WHEEZING Aspirin 81 mg 07/14/24 08:00 07/16/24 08:05 Aspirin E.C. 81 Mg Tablet PO Not Given BREAKFAST [facility] Calamine/Phenol 1 applic 07/14/24 10:00 07/16/24 08:33 Menthol/Lanolin/Calamine/Znox 113 Gm Tube TOPICAL 1 applic BID [facility] Administration Protocol Clopidogrel Bisulfate 75 mg 07/13/24 22:00 07/15/24 21:47 Clopidogrel Bisulfate 75 Mg Tablet PO 75 mg QHS CIRO Administration Glucagon 1 mg 07/13/24 18:39 Glucagon 1 Mg/Ml Syringe IM X1 PRN HYPOGLYCEMIA Protocol Dextrose 250 mls @ 0 mls/hr 07/13/24 18:39 Dextrose 10%-Water IV .Q0M PRN HYPOGLYCEMIA Protocol As Directed Meropenem 1 gm/ Sodium 120 mls @ 33 mls/hr 07/14/24 14:00 07/16/24 13:54 Chloride IV 33 mls/hr 1400 [facility] Administration Vancomycin IV-PHARMACY TO DOSE 500 mls @ 250 mls/hr 07/14/24 10:00 1 each/ Sodium Chloride IV DAILY PRN RX TO DOSE Protocol Insulin Glargine 10 unit 07/16/24 10:00 07/16/24 09:59 Insulin Glargine-Yfgn 100 Unit/Ml Pen SC Not Given BID [facility] Insulin Human Lispro 0 unit 07/13/24 22:00 07/16/24 11:01 Insulin Lispro 100 Unit/Ml Insuln.Pen SC Not Given ACHS [facility] Protocol Insulin Human Lispro 7 unit 07/16/24 11:00 07/16/24 11:01 Insulin Lispro 100 Unit/Ml Insuln.Pen SC Not Given TIDAC [facility] L-Arginine/L-Glutamine/Calcium HMB 1 packet 07/13/24 22:00 07/16/24 08:05 Dustin (Unflavored) Packet PO Not Given BID [facility] Melatonin 3 mg 07/13/24 18:39 Melatonin 3 Mg Tablet PO QHS PRN PRN INSOMNIA Ondansetron HCl 4 mg 07/13/24 18:39 Ondansetron 4 Mg/2 Ml Vial IV Q8H PRN PRN NAUSEA/VOMITING Oxycodone HCl 2.5 mg 07/13/24 18:39 07/16/24 02:42 Oxycodone 5 Mg Tablet PO 2.5 mg Q4H PRN PRN Administration Pain Score 4-10 Senna/Docusate Sodium 2 tablet 07/13/24 18:39 Senna/Docusate Sodium 1 Tablet PO BID PRN PRN Constipation Throat Lozenges 2 lozenge 07/15/24 21:55 07/15/24 22:15 Benzocaine/Menthol 1 Lozenge MUCOUS MEM 2 lozenge Q2H PRN PRN Administration sore throat Torsemide 100 mg 07/16/24 10:00 07/16/24 08:05 Torsemide 100 Mg Tablet PO Not Given MoWeFr@1000 [facility] Vancomycin Protocol 1 lab 07/17/24 04:00 Vancomycin Trough/Random Due 07/17/24 08:00 DAILY [facility] Medical History Acute hyperkalemia Open wound Lives in [facility] Dietary restriction History of stress test History of echocardiogram Cardiology follow-up encounter History of atrial fibrillation 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 ESRD (end stage renal disease) Type 2 diabetes mellitus with foot ulcer Diabetes mellitus with diabetic 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 Pre-op testing Loose, teeth Wears glasses Cancer Dialysis patient Kidney disease Non-smoker Edema Syncope Chronic diastolic (congestive) heart failure (04/18/20) Paroxysmal atrial fibrillation Sinus bradycardia Type 2 diabetes mellitus Hyperkalemia Swelling of both lower extremities HLD (hyperlipidemia) Left bundle-branch block 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 Abnormal electrocardiogram Home Medications ?Medication ?Instructions ?Recorded ?Last Taken ?Type aspirin 81 mg tablet,delayed 81 mg PO DAILY heart health 07/01/20 06/05/24 History release (Adult Aspirin Regimen) torsemide 100 mg tablet 100 mg PO MOWEFR water pill 04/14/24 06/04/24 History insulin glargine 100 unit/mL (3 20 unit (0.2 mL) subcut DINNER 04/24/24 06/05/24 Rx mL) subcutaneous pen diabetes 30 days #0 mL insulin lispro 100 unit/mL See Protocol subcut ACHS dm 05/04/24 Unknown History subcutaneous pen (Humalog KwikPen (U-100) Insulin) arginine 7 gram-glutamine 7 1 ea PO BID 05/22/24 06/05/24 History gram-calcium HMB 1.5 gram oral powder pack (Dustin) nystatin 100,000 unit/gram topical 1 applic topical DAILY 05/22/24 06/05/24 History cream nut.tx.gluc.intol,lac-free,soy 240 ml PO DAILY 06/04/24 06/05/24 History (Glucerna oral liquid) sennosides 8.6 mg-docusate sodium 1 tab-cap PO BID PRN PRN 06/04/24 06/05/24 History 50 mg tablet (Stimulant Laxative Constipation Plus) clopidogrel 75 mg tablet 75 mg PO QHS 07/02/24 Unknown History acetaminophen 325 mg tablet 650 mg PO Q8H PRN PRN Pain 1-10 Or 07/13/24 Unknown History Fever >100.7 cholecalciferol (vitamin D3) 125 125 mcg PO DAILY 07/13/24 Unknown History mcg (5,000 unit) capsule insulin lispro 100 unit/mL 10 unit subcut TID 07/13/24 Unknown History subcutaneous pen insulin lispro 100 unit/mL 10 unit subcut DAILY 07/13/24 Unknown History subcutaneous pen (Humalog KwikPen (U-100) Insulin) oxycodone 5 mg tablet 2.5 mg PO DAILY PRN pain 07/13/24 Unknown History oxycodone 5 mg tablet 2.5 mg PO Q6H PRN pain 07/13/24 Unknown History oxycodone-acetaminophen 2.5 mg-325 1 tab PO Q8H 07/13/24 Unknown History mg tablet (Endocet) Allergy/AdvReac Type Severity Reaction Status Date / Time pioglitazone (From Actos) Allergy fatigue Verified 07/13/24 14:00 simvastatin (From Zocor) Allergy myalgia Verified 07/13/24 14:00 sitagliptin (From Januvia) Allergy unknown Verified 07/13/24 14:00 Family History Mother Hypertension Father Diabetes COPD (chronic obstructive pulmonary disease) Surgical History Hx of foot surgery History of cataract extraction History of ligation of vein History of arteriovenostomy for renal dialysis History of inguinal hernia repair History of appendectomy Social History Smoking Status: Never smoker alcohol intake: never substance use type: does not use caffeine: Yes Type: coffee Number of servings: 1 what type of physical activity do you participate in: none seatbelt use: always do you feel safe at home: Yes Review of Systems (Anesthesia) ROS Narrative System reviewed and no additional complaints, except as documented. Physical Exam Narrative awake, o2 via NC LUE fistula RLE leg in chase wrap lungs CTAB RRR no signifciant peripheral edema noted in LLE
[2024-07-16] MEDS: Bupivacaine Mpf 0.5% 30 ML VIAL (16:00)
--- NOTE | 2024-07-16 16:52 | PCM.POST.ANE ---
Anesthesia: Postop Eval I Current Vital Signs Temperature: 98 F Pulse Rate: 66 Blood Pressure: 98/57 Respiratory Rate: 20 Pulse Ox: 95 Assessment Airway patent: Yes Spontaneous unlabored respirations: Yes nausea: No Vomiting: No Anesthesia Complication: No Fluid Hydration Crystalloid volume administer (ml): 5 Total IV fluid infused: 5 Progress Note Anesthesia document: Postop Eval 1 completed: Yes
--- NOTE | 2024-07-16 16:54 | PCM.OPRPT ---
Problems Associated Problem List Diagnoses (1) Osteomyelitis of right foot: (2) Cellulitis of right foot: (3) Cutaneous abscess of right foot: Operative Report (Standard) Operative Information Date of Procedure: 07/16/24 Pre-Operative Diagnosis: 1. Osteomyelitis, right foot 2. Cellulitis, right foot 3. Cutaneous abscess, right foot Post-Operative Diagnosis: Same as preoperative diagnosis Surgery/Procedure Performed: Procedure #1: Incision and drainage, right foot Procedure #2: Incision of bone cortex, right foot nozzle and sleeve worker: No Type of Anesthesia: Local and MAC RN Documented Start/Stop Times: Operation Date: 07/16/24 10:20 Case Time Into Pre-Op 07/16/24 14:45 Out of Pre-Op 07/16/24 15:30 Anesthesia Start 07/16/24 15:37 Into Room 07/16/24 15:37 Procedure Start 07/16/24 15:59 Procedure End 07/16/24 16:42 Anesthesia End 07/16/24 16:45 Out of Room 07/16/24 16:45 Into Recovery 07/16/24 16:47 Procedure Start Time: 15:59 Procedure Stop Time: 16:42 Select all DRAINS/GRAFTS/IMPLANTS that apply: None Special Medications: Per anesthesia Estimated Blood Loss: 50 mL Fluids Replaced: Per anesthesia Specimen collected: Yes Description of specimen(s) removed: 1. Prelavage cultures, right foot 2. Post lavage cultures, right foot 3. Incision of bone cortex, right foot Description of surgery: Indications For Operation: Mr. Thompson is a 89-year-old diabetic male who was admitted to [facility] for right lower extremity cellulitis and osteomyelitis of the right foot. Patient is well-known to the practice that has been seen by Dr. Ruelas at the wound care center as well as myself. Patient was seen in the emergency room approximately 2 days ago where he was diagnosed with a deep tissue infection and admitted for IV antibiotics and observation. Patient did get a plain film radiograph that showed no evidence of emphysema on x-ray but showed evidence of necrosis of the lesser metatarsals of the right lower extremity secondary to transmetatarsal amputation with wound dehiscence. Patient showed evidence of a CRP elevated to 300 and a ESR of 53. Due to the patient's leukocytosis with concern of deep tissue abscess, it was deemed necessary at this time to take the patient to the operating room to perform above procedures to help decrease the likelihood of below-knee amputation and to rid his open wound of deep tissue infection. Chart review consent signed. The nature of the problem, anticipated procedures, postop recovery/convalences and risk/complications include but not limited to infection, wound healing complications, digital amputation, hypertrophic scarring, numbness, tingling, chronic pain, CRPS, over and under correction, recurrence of deformity, DVT and or PE and the need for further surgery have been discussed in great detail with the patient. All questions have been answered to the patient's satisfaction. There are no guarantees given as to the outcome of the procedure. Description of Procedure: Under mild sedation, the patient was brought into the operating room and placed on the operating table in supine position. Once the patient was under monitored anesthesia care anesthesia, the right lower extremity was blocked using approximately 20 cc 0.5% Marcaine plain. No tourniquet was used for this case. Next, the right lower extremity was prepped and draped in normal aseptic manner. Next, a timeout was then undertaken verifying the correct patient, extremity, visibility of preoperative markings, availability of the equipment. Procedure #1: Incision and drainage, right foot Next, attention was directed to the full-thickness wound on the right lower extremity at the level of the transmetatarsal amputation. Using a figueroa elevator, incision and drainae down to level of bone was carried out at the dorsal, dorsal lateral and plantar central locations on the right lower extremity. There showed evidence of scant purulent drainage with continued blunt dissection. Prelavage cultures were taken and passed back table to be sent off for microbiology culture and sensitivity. Next, the 3 locations were pulsed via pulse lavage of 6000 mL. Next the [employer] ultrasonic debrider was used to clean out all necrotic tissue in the right lower extremity. Once the pulse lavage as well as the ultrasonic debrider were completed there showed evidence of healthy granular tissue into all 3 locations of the right lower extremity. Next, attention was directed to the plantar aspect of the right heel, using a rongeur, incision and drainage down to bone was carried out which showed evidence of positive probe to periosteum. An additional 1000 mL of pulse lavage was used to clean out the full-thickness wound to the plantar aspect of the right heel. Next, postlavage cultures were taken and passed the back table to be sent off for microbiology cultures and sensitivity. Procedure #2: Incision of bone cortex, right foot Next, attention was directed to the necrotic bone remaining metatarsals. Using the sagittal saw on #101 blade, incision bone cortex was performed on the metatarsals which were eventually removed via blunt and sharp dissection and passed the back table to be sent off for microbiology culture and sensitivity. The right lower extremity full-thickness wounds were flushed with copious normal saline. The transmetatarsal amputation site was packed with Betadine soaked gauze, the full-thickness wound to the right heel was packed with Betadine soaked gauze followed by dry sterile dressing, ABDs, dry sterile dressing, 2 layers of cast padding followed by two 4 inch Alessandro bandages lightly wrapped. The patient tolerated the procedure and anesthesia well and apparent satisfactory condition and was transported to the PACU for further monitoring prior to discharge back to the floor. Vital signs stable and vascular status intact to all digits bilateral. Post Operative Plan: Weightbearing: Partial weightbearing to heel with transfer to right lower extremity. Full weightbearing to left lower extremity. Antibiotics: Vancomycin and meropenem on the floor DVT Prophylaxis: Per medicine Lozano: None Dressing: Betadine soaked gauze, 4 x 4's, ABD pads, dry sterile dressing, cast padding, 4 inch Alessandro wrap slightly wrapped X-Rays: Post-operative films taken on the operating room. Pain Medication: Per medicine Follow-up: Once the patient's leukocytosis has resolved the patient can be cleared for discharge from a podiatric standpoint. Plan for hemodialysis on Tuesday. I do recommend PICC line IV antibiotics at this time at time of discharge. Surgical Findings: 1. Osseous necrosis appreciated to the remaining metatarsals of the right foot, which were removed. 2. No evidence of softening of the proximal midfoot bones. 3. Evidence of tunneling appreciated to the dorsal, dorsal lateral and plantar medial foot with scant clear drainage that was removed. 4. Evidence of full-thickness wound to the right plantar heel with probe to periosteum of the calcaneus Complications Complications: No Admit VTE Documentation VTE Present on Admission: No VTE Mechan Device Prophylaxis: SCD's VTE Pharm Prophylaxis ordered?: Yes
[2024-07-16 18:08] LABS: Bedside Glucose 105 mg/dL (74-106)
[2024-07-16] MEDS: Ondansetron 4 MG/2 ML Vial IV (18:26)
[2024-07-16] MEDS: 0.9% Saline Lock 10 ML Syringe IV (18:34)
--- NOTE | 2024-07-16 18:49 | POSTOPAN2_ITS ---
Anesthesia Postop Eval I Sum Postop Eval Completion status Anesthesia document: Postop Eval 1 completed: Yes Anesthesia Postop Eval I Summary Anesthesia Postop Eval I Summary: Anesthesia Postop Eval I: Assessment Summary Airway patent Yes 07/16/24 16:52 TRANSITIONS RN CARE COORDINATOR.[email or web address] Spontaneous unlabored Yes 07/16/24 16:52 TRANSITIONS RN CARE COORDINATOR.OS respirations Mental status nausea No 07/16/24 16:52 TRANSITIONS RN CARE COORDINATOR.BHOS Vomiting No 07/16/24 16:52 TRANSITIONS RN CARE COORDINATOR.OS Anesthesia Postop Eval I: Fluid Summary Crystalloid volume administer 5 07/16/24 16:52 TRANSITIONS RN CARE COORDINATOR.BHOS (ml) Colloids volume administered ( ml) Blood Product volume administered (ml) Total IV fluid infused 5 07/16/24 16:52 TRANSITIONS RN CARE COORDINATOR.OS Anesthesia Postop Eval I: Summary Notes Anesthesia Complication No 07/16/24 16:52 TRANSITIONS RN CARE COORDINATOR.[facility] Anesthesia Complication Comment: Post-operative progress note Anesthesia: Postop Eval II Evaluation Mental status: Awake and Calm Pain Level: 3 nausea: No Vomiting: No Complications Anesthesia Complication: No
--- NOTE | 2024-07-16 18:49 | PCM.POSTANE2 ---
Anesthesia Postop Eval I Sum Postop Eval Completion status Anesthesia document: Postop Eval 1 completed: Yes Anesthesia Postop Eval I Summary Anesthesia Postop Eval I Summary: Anesthesia Postop Eval I: Assessment Summary Airway patent Yes 07/16/24 16:52 BOTANY TEACHER.BHOS Spontaneous unlabored Yes 07/16/24 16:52 BOTANY TEACHER.OS respirations Mental status nausea No 07/16/24 16:52 BOTANY TEACHER.BHOS Vomiting No 07/16/24 16:52 BOTANY TEACHER.OS Anesthesia Postop Eval I: Fluid Summary Crystalloid volume administer 5 07/16/24 16:52 BOTANY TEACHER.BHOS (ml) Colloids volume administered ( ml) Blood Product volume administered (ml) Total IV fluid infused 5 07/16/24 16:52 BOTANY TEACHER.OS Anesthesia Postop Eval I: Summary Notes Anesthesia Complication No 07/16/24 16:52 BOTANY TEACHER.[facility] Anesthesia Complication Comment: Post-operative progress note Anesthesia: Postop Eval II Evaluation Mental status: Awake and Calm Pain Level: 3 nausea: No Vomiting: No Complications Anesthesia Complication: No
[2024-07-16] MEDS: Insulin Lispro 100 UNIT/ML INSULN.PEN SC (23:28)
[2024-07-16] MEDS: Juven (unflavored) Packet 1 PACKET PO (23:29)
[2024-07-16] MEDS: Insulin Glargine-YFGN 100 UNIT/ML Pen 10 UNIT SC (23:29)
[2024-07-16] MEDS: Clopidogrel Bisulfate 75 MG Tablet PO (23:30)
[2024-07-17] VITALS (12 sets, daily range): BP systolic 98–262; BP diastolic 35–58; PULSE 46–89; RESP 14–16; TEMP 36.4–37.2; O2SAT 94–98; BMI 33.0; BMI 32.3
[2024-07-17 00:52] LABS: Bedside Glucose 208 mg/dL (74-106)
[2024-07-17] MEDS: Acetaminophen 325 MG Tablet 650 MG PO ×2 (03:15→22:50)
[2024-07-17 07:17] LABS: Absolute Lymphocyte Count 2.11 X10^3/uL (0.83-4.51); Basophil# 0.06 X10^3/uL; Basophil% 0.3 % (0-1); Eosinophil# 0.12 X10^3/uL; Eosinophils% 0.6 % (0-5); Hematocrit 23.7 % (40-54); Hemoglobin 7.1 g/dL (13.0-16.5); Lymphocyte # 2.11 X10^3/ul (0.83-4.51); Lymphocyte % 9.9 % (19-41); Mean Corpuscular Hgb 27.8 pg (27.0-32.0); Mean Corpuscular Volume 92.9 fL (80-94); Mean Platelet Vol. 10.7 fl (6.2-12.0); Monocyte# 1.39 X10^3/uL; Monocyte% 6.6 % (0-10); NRBC Flagged by Analyzer 0 % (0-5); Neutrophil # 16.95 X10^3/uL (2.7-7.7); Neutrophil % 79.8 % (47-70); Platelet Count 378 K/mm3 (150-450); RBC Distribution Width CV 17.7 % (11.6-14.6); RBC Distribution Width SD 60.7 fl (35.1-43.9); Red Blood Count 2.55 M/mm3 (4.6-6.2); White Blood Count 21.2 K/mm3 (4.4-11.0)
[2024-07-17 07:46] LABS: Anion Gap 8 (5-15); BUN 82 mg/dL (7-18); BUN/Creat Ratio 13.3 RATIO (10-20); Calcium,Total 8.3 mg/dL (8.5-10.1); Chloride 97 mmol/L (98-107); Creatinine, Serum 6.15 mg/dL (0.70-1.30); EST Glomerular Filtration Rate 9 mL/min (>60); Est Glom Filt Rate - Afr Amer 11 mL/min (>60); Estimated Creatinine Clearance 9.33 ml/min; Glucose 213 mg/dL (74-106); Potassium 5.1 mmol/L (3.5-5.1); Sodium Level 130 mmol/L (136-145)
[2024-07-17 07:56] LABS: Vancomycin, Random Level 13.2 ug/mL (0.0-15.0)
--- NOTE | 2024-07-17 08:25 | PHA.PHARE_ITS ---
Consult Antibiotic Management Pharmacy has been consulted to manage selected antibiotic: Vancomycin Type of Intervention Type of Consult: Follow-up Labs Labs: Sodium 130 mmol/L (136-145) L 07/17/24 06:20 Potassium 5.1 mmol/L (3.5-5.1) 07/17/24 06:20 Chloride 97 mmol/L (98-107) L 07/17/24 06:20 Carbon Dioxide 25.0 mmol/L (21.0-32.0) 07/17/24 06:20 Anion Gap 8 (5-15) 07/17/24 06:20 BUN 82 mg/dL (7-18) H 07/17/24 06:20 Creatinine 6.15 mg/dL (0.70-1.30) H 07/17/24 06:20 Est GFR (MDRD) Af Amer 11 mL/min (>60) L 07/17/24 06:20 Est GFR (MDRD) Non-Af 9 mL/min (>60) L 07/17/24 06:20 BUN/Creatinine Ratio 13.3 RATIO (10-20) 07/17/24 06:20 Glucose 213 mg/dL (74-106) H 07/17/24 06:20 Random Vancomycin 13.2 ug/mL (0.0-15.0) 07/17/24 06:20 Microbiology Microbiology: Microbiology 07/16/24 16:55 Tissue - Right Foot Gram Stain - Final 07/16/24 16:55 Tissue - Right Foot Gram Stain - Final 07/16/24 16:55 Tissue - Right Foot Gram Stain - Final 07/13/24 16:24 Wound - Right Foot Gram Stain - Final 07/13/24 16:24 Wound - Right Foot Wound Culture - Final Meth. resistant Staph. aureus 07/13/24 16:24 Wound - Right Foot Anaerobic Culture - Preliminary Checking for anaerobes, further studies to follow. 07/13/24 16:38 Blood Culture (Wb) - Right Hand Blood Culture - Final Meth. resistant Staph. aureus 07/13/24 16:38 Blood Culture (Wb) - Arm Right Bacteria Detection (PCR) - Final Meth. resistant Staph. aureus 07/13/24 16:38 Blood Culture (Wb) - Arm Right Blood Culture - Final Meth. resistant Staph. aureus 07/13/24 15:50 Mucosa - Nose SARS-CoV-2, Influenza & RSV (PCR) - Final Goal Trough Goal Trough: 15-20 mcg/mL Pharmacy Plan for Drug Dosing Pharmacy Plan for Drug Dosing: VANCOMYCIN LEVEL RECEIVED Current Vancomycin Dose: DOSE PER PRE-HD LEVELS Number of Doses Received: LAST DOSE 500MG IV X1 PRE-HD Vancomycin Level: 13.2 Hours Since Last Dose: N/A Renal Function: ON HEMODIALYSIS. PT HD SCHEDULE IS // PER NEPHROLOGY NOTES Renal Function Trend: N/A Lab/Micro: BLOOD CULTURES POSITIVE FOR MRSA, SENSITIVE TO VANCOMYCIN Vancomycin Plan/Comments: Patient had a pre-HD level drawn which resulted in a value of 13.2. Will schedule a dose of vancomycin 750mg IV x1 to be given post- HD treatment today. Pending Level: *RANDOM* pre-HD level scheduled 07/19/24 with AM labs Pharmacy Service will continue to monitor and adjust dosing as required.
[2024-07-17 08:44] LABS: Bedside Glucose 203 mg/dL (74-106)
[2024-07-17] MEDS: Insulin Lispro 100 UNIT/ML INSULN.PEN SC ×3 (09:02→22:56)
[2024-07-17] MEDS: Aspirin E.C. 81 MG Tablet PO (09:06)
[2024-07-17] MEDS: Insulin Lispro 100 UNIT/ML INSULN.PEN 7 UNIT SC ×2 (09:07→11:50)
--- NOTE | 2024-07-17 09:12 | PN.HOSP_ITS ---
Reason for Visit Reason for Visit: Diagnoses Methicillin resistant Staphylococcus aureus infection as the cause of diseases classified elsewhere (07/13/24) Type 2 diabetes mellitus with other skin complications (07/13/24) Other specified peripheral vascular diseases (07/13/24) Cutaneous abscess of right foot (07/13/24) Cellulitis of right lower limb (07/13/24) Local infection of the skin and subcutaneous tissue, unspecified (07/13/24) Pain in right foot (07/13/24) Other chronic osteomyelitis, right ankle and foot (07/13/24) Osteomyelitis, unspecified (07/13/24) End stage renal disease (07/13/24) Bacteremia (07/13/24) Subjective Subjective Patient sitting in bed, no acute distress, denies any pain or shortness of breath Objective Data Objective Data Vital Signs: Vital Signs Temp Pulse Resp BP Pulse Ox O2 Del Method O2 Flow Rate 98.6 F 58 L 16 98/58 L 97 Room Air 2 07/17/24 03:24 07/17/24 03:24 07/17/24 03:24 07/17/24 03:24 07/17/24 03:24 07/17/24 03:28 07/16/24 15:18 Oxygen Flow Rate (L/min) 2 Oxygen Delivery Method Room Air Weight: 95.7 kg Body Mass Index (BMI) 33.0 Intake & Output: Intake and Output for Last 24 Hours 07/15/24 07/16/24 07/17/24 23:59 23:59 23:59 Intake Total 1220 / 1420 745 / 745 Balance 1220 / 1420 745 / 745 Lab / Micro Data 07/17/24 06:20 07/17/24 06:20 Labs: Laboratory Results - last 24 hr 07/13/24 14:30: Diff Path Review Reviewed 07/16/24 10:56: POC Glucose 118 H 07/16/24 17:41: POC Glucose 105 07/16/24 23:26: POC Glucose 208 H 07/17/24 06:20: WBC 21.2 H, RBC 2.55 L, Hgb 7.1 L, Hct 23.7 L, MCV 92.9, MCH 27.8, MCHC 30.0 L, RDW Std Deviation 60.7 H, RDW Coeff of Frances 17.7 H, Plt Count 378, MPV 10.7, Immature Gran % (Auto) 2.800 H, Neut % (Auto) 79.8 H, Lymph % (Auto) 9.9 L, [place] % (Auto) 6.6, Eos % (Auto) 0.6, Baso % (Auto) 0.3, Absolute Neuts (auto) 17.0 H, Absolute Lymphs (auto) 2.11, Nucleated RBC % 0, Sodium 130 L, Potassium 5.1, Chloride 97 L, Carbon Dioxide 25.0, Anion Gap 8, BUN 82 H, C reatinine 6.15 H, Estim Creat Clear Calc 9.33, Est GFR (MDRD) Af Amer 11 L, Est GFR (MDRD) Non-Af 9 L, BUN/Creatinine Ratio 13.3, Glucose 213 H, Calcium 8.3 L, Random Vancomycin 13.2 07/17/24 08:25: POC Glucose 203 H Micro: Microbiology 07/16/24 16:55 Tissue - Right Foot Gram Stain - Final 07/16/24 16:55 Tissue - Right Foot Tissue Culture - Preliminary Staphylococcus aureus 07/16/24 16:55 Tissue - Right Foot Gram Stain - Final 07/16/24 16:55 Tissue - Right Foot Wound Culture - Preliminary Staphylococcus aureus 07/16/24 16:55 Tissue - Right Foot Gram Stain - Final 07/16/24 16:55 Tissue - Right Foot Wound Culture - Preliminary Staphylococcus aureus 07/13/24 16:24 Wound - Right Foot Gram Stain - Final 07/13/24 16:24 Wound - Right Foot Wound Culture - Final Meth. resistant Staph. aureus 07/13/24 16:24 Wound - Right Foot Anaerobic Culture - Preliminary Checking for anaerobes, further studies to follow. 07/13/24 16:38 Blood Culture (Wb) - Right Hand Blood Culture - Final Meth. resistant Staph. aureus 07/13/24 16:38 Blood Culture (Wb) - Arm Right Bacteria Detection (PCR) - Final Meth. resistant Staph. aureus 07/13/24 16:38 Blood Culture (Wb) - Arm Right Blood Culture - Final Meth. resistant Staph. aureus 07/13/24 15:50 Mucosa - Nose SARS-CoV-2, Influenza & RSV (PCR) - Final Radiography Diagnostic Testing: Radiology Impression Echocardiogram 07/14/24 14:11 Interpretation Summary The estimated ejection fraction is 60 %. Unable to assess diastolic dysfunction. The left atrium is mildly enlarged. Trivial mitral valve insufficiency. Ordering Physician: Juan Antonio Holden Referring Physician: Chung Humphreys Performed By: Rosy Araiza RCS Foot X-Ray 07/16/24 15:03 IMPRESSION: Documentation of fluoroscopy use during surgical procedure of the right foot. Please see the operative note for details. Reading Location: [facility] Physical Exam Narrative General: Alert, no apparent distress HEENT: Atraumatic, normocephalic Eyes: Anicteric, normal conjunctiva, extraocular movements grossly intact Neck: Supple Respiratory: Clear to auscultation bilaterally, normal respiratory effort Cardiovascular: Regular rate GI: Soft, nontender, nondistended Extremities: No edema Musculoskeletal: Moving all extremities Neuro: No overt focal neurological deficits Skin: No rashes appreciated, right lower extremity wrapped, no drainage on the dressing Psych: Cooperative Assessment & Plan Assessment/Plan (1) Diabetic infection of right foot: PLAN: Plan # Right foot infection secondary to MRSA in setting of recent amputations and wound VAC -Patient was a nursing facility with wound VAC being followed by podiatry and wound care -In the ED white blood cell count 19.9 with a CRP of 301 and foot x-ray with swelling -Podiatry evaluated at the time and recommended admission with cultures, antibiotics and they would follow -Patient found to have MRSA both in foot and blood -Patient on IV antibiotics -ID consult -Wound nurse consult -Podiatry to take patient 07/16/2024 for debridement -07/17: Patient underwent incision and drainage of right foot with incision of bone cortex and right foot, IntraOp cultures growing Staph aureus # MRSA bacteremia -Secondary to right foot infection -Will repeat cultures -Echo ordered -ID consult -Continue vancomycin -07/17: Echo does not appear to have acute abnormalities, repeat blood culture ordered, ID following, continue vancomycin #ESRD on HD -Consult nephrology -Renal diet -Daily weights, I's and O's -07/17: Nephrology following for hemodialysis #Type 2 diabetes mellitus -Glucose checks and sliding scale insulin -Patient presently on 15 units twice daily of long-acting insulin with lispro 10 3 times daily and sliding scale -Glucose only 122 this a.m. and yesterday he had a glucose of 50 7 in the evening, will decrease insulin dosing to avoid further hypoglycemia -07/17: Patient with glucose of 203 this a.m., continue further insulin dosing and uptitrate as tolerated # History of PAD -Complicates presenting problem -Patient chronically on aspirin and Plavix -07/17: Remains on aspirin and Plavix # History of chronic heart failure preserved ejection fraction -Given patient's vital stability we will hold off on any excessive IV fluids -Monitor daily weights and I's and O's -Continue home torsemide -07/17: Tolerating home torsemide #DVT ppx: SCDs Jayla Osuna MD Charges/Coding Visit Charges Inpatient E&M: 23084 Subs Hosp L2
--- NOTE | 2024-07-17 10:02 | WOUNDNOTE ---
wound photo: right foot
--- NOTE | 2024-07-17 10:07 | WOUNDNOTE ---
wound photo: right foot
--- NOTE | 2024-07-17 10:08 | WOUNDNOTE ---
wound photo: right foot
--- NOTE | 2024-07-17 10:26 | PCM.PN.ID ---
Physical Exam Narrative Feeling ok, foot a little sore, no fever, no n/v/d. Const alert and no apparent distress General Appearance: cooperative Resp normal air movement and clear to auscultation bilaterally Cardio regular rate and regular rhythm GI soft to palpation, non-tender and non-distended Skin Skin Narrative: R foot wrapped ID ID: Route of nutrition/ use of supplements: [] Nutritional Intake: [] IV Site: [] Lozano Catheter: [] Assessment & Plan Assessment/Plan (1) Diabetic infection of right foot: (2) End stage renal disease: (3) MRSA bacteremia: PLAN: Due to R foot infection. OR 07/16/24 for I&D with Dr. Garcia. Will repeat bcx. No veg seen on TTE. Cont vanc/juancarlos. Will follow
[2024-07-17] MEDS: Menthol/Lanolin/Calamine/Znox 113 GM Tube 1 APPLIC TOPICAL ×2 (11:48→22:50)
[2024-07-17] MEDS: Insulin Glargine-YFGN 100 UNIT/ML Pen 10 UNIT SC ×2 (11:48→22:56)
[2024-07-17] MEDS: Juven (unflavored) Packet 1 PACKET PO ×2 (11:50→22:57)
[2024-07-17 12:30] LABS: Bedside Glucose 226 mg/dL (74-106)
--- NOTE | 2024-07-17 13:00 | PCM.PN.REN ---
Subjective Subjective no new events Objective Data Objective Data Vital Signs: Vital Signs Temp Pulse Resp BP Pulse Ox O2 Del Method O2 Flow Rate 97.7 F L 87 14 127/45 H 98 Room Air 2 07/17/24 12:30 07/17/24 12:30 07/17/24 12:30 07/17/24 12:30 07/17/24 12:30 07/17/24 12:30 07/16/24 15:18 Oxygen Flow Rate (L/min) 2 Oxygen Delivery Method Room Air Weight: 95.7 kg Body Mass Index (BMI) 33.0 Intake & Output: Intake and Output for Last 24 Hours 07/15/24 07/16/24 07/17/24 23:59 23:59 23:59 Intake Total 1220 / 1420 745 / 745 Balance 1220 / 1420 745 / 745 Lab / Micro Data 07/17/24 06:20 07/17/24 06:20 Labs: Laboratory Results - last 24 hr 07/13/24 14:30: Diff Path Review Reviewed 07/16/24 17:41: POC Glucose 105 07/16/24 23:26: POC Glucose 208 H 07/17/24 06:20: WBC 21.2 H, RBC 2.55 L, Hgb 7.1 L, Hct 23.7 L, MCV 92.9, MCH 27.8, MCHC 30.0 L, RDW Std Deviation 60.7 H, RDW Coeff of Frances 17.7 H, Plt Count 378, MPV 10.7, Immature Gran % (Auto) 2.800 H, Neut % (Auto) 79.8 H, Lymph % (Auto) 9.9 L, [place] % (Auto) 6.6, Eos % (Auto) 0.6, Baso % (Auto) 0.3, Absolute Neuts (auto) 17.0 H, Absolute Lymphs (auto) 2.11, Nucleated RBC % 0, Sodium 130 L, Potassium 5.1, Chloride 97 L, Carbon Dioxide 25.0, Anion Gap 8, BUN 82 H, Creatinine 6.15 H, Estim Creat Clear Calc 9.33, Est GFR (MDRD) Af Amer 11 L, Est GFR (MDRD) Non-Af 9 L, BUN/Creatinine Ratio 13.3, Glucose 213 H, Calcium 8.3 L, Random Vancomycin 13.2 07/17/24 08:25: POC Glucose 203 H 07/17/24 11:47: POC Glucose 226 H Micro: Microbiology 07/13/24 16:24 Wound - Right Foot Gram Stain - Final 07/13/24 16:24 Wound - Right Foot Wound Culture - Final Meth. resistant Staph. aureus 07/13/24 16:24 Wound - Right Foot Anaerobic Culture - Preliminary Gram positive yessy 07/16/24 16:55 Tissue - Right Foot Gram Stain - Final 07/16/24 16:55 Tissue - Right Foot Tissue Culture - Preliminary Staphylococcus aureus 07/16/24 16:55 Tissue - Right Foot Gram Stain - Final 07/16/24 16:55 Tissue - Right Foot Wound Culture - Preliminary Staphylococcus aureus 07/16/24 16:55 Tissue - Right Foot Gram Stain - Final 07/16/24 16:55 Tissue - Right Foot Wound Culture - Preliminary Staphylococcus aureus 07/13/24 16:38 Blood Culture (Wb) - Right Hand Blood Culture - Final Meth. resistant Staph. aureus 07/13/24 16:38 Blood Culture (Wb) - Arm Right Bacteria Detection (PCR) - Final Meth. resistant Staph. aureus 07/13/24 16:38 Blood Culture (Wb) - Arm Right Blood Culture - Final Meth. resistant Staph. aureus 07/13/24 15:50 Mucosa - Nose SARS-CoV-2, Influenza & RSV (PCR) - Final Radiography Diagnostic Testing: Radiology Impression Echocardiogram 07/14/24 14:11 Interpretation Summary The estimated ejection fraction is 60 %. Unable to assess diastolic dysfunction. The left atrium is mildly enlarged. Trivial mitral valve insufficiency. Ordering Physician: Juan Antonio Holden Referring Physician: Chung Humphreys Performed By: Rosy Araiza RCS Foot X-Ray 07/16/24 15:03 IMPRESSION: Documentation of fluoroscopy use during surgical procedure of the right foot. Please see the operative note for details. Reading Location: [facility] Physical Exam Narrative Alert awake oriented x 3 no obvious distress no pallor no icterus no JVD s1s2 no murmurs lungs clear abdomen soft no organomegaly no edema no cyanosis Assessment & Plan Assessment/Plan (1) End stage renal disease: PLAN: On hemodialysis Tuesday, , Tuesday schedule. Last dialysis was Tuesday, uneventful. HD today. see orders. Foot osteomyelitis with bacteremia. ID on consult.
[2024-07-17] MEDS: PureFlow B 2K Dialysis Soln 1 BAG 6 BAG PF (15:56)
[2024-07-17] MEDS: 0.9% Normal Saline 1,000 ML IV.SOLN. 1000 ML OPERA.SITE (15:56)
[2024-07-17] MEDS: Meropenem 1 GM in 0.9% Normal Saline (100mL MB+) 100 ML IV (16:20)
[2024-07-17] MEDS: 0.9% Saline Lock 10 ML Syringe IV (16:21)
[2024-07-17 17:17] LABS: Bedside Glucose 119 mg/dL (74-106)
--- NOTE | 2024-07-17 17:26 | PCM.PN.SRG ---
Subjective Subjective Mr. Bueno is a 89-year-old diabetic male status post incision and drainage and incision bone cortex of the right lower extremity. DOS: 07/16/2024. Seen at bedside today dressing intact with no strikethrough. No pain to the right lower extremity. Denies constitutional symptoms. Eating well. No other pedal complaints at this time. Objective Data Objective Data Vital Signs: Vital Signs Temp Pulse Resp BP Pulse Ox O2 Del Method O2 Flow Rate 97.6 F L 75 14 118/48 L 98 Room Air 2 07/17/24 15:45 07/17/24 15:45 07/17/24 15:45 07/17/24 15:45 07/17/24 15:45 07/17/24 16:28 07/16/24 15:18 Oxygen Flow Rate (L/min) 2 Oxygen Delivery Method Room Air Weight: 93.5 kg Body Mass Index (BMI) 32.3 Intake & Output: Intake and Output for Last 24 Hours 07/15/24 07/16/24 07/17/24 23:59 23:59 23:59 Intake Total 1220 / 1420 745 / 745 Output Total 2170 / 2170 Balance 1220 / 1420 745 / 745 -2170 / -2170 Lab / Micro Data 07/17/24 06:20 07/17/24 06:20 Labs: Laboratory Results - last 24 hr 07/16/24 17:41: POC Glucose 105 07/16/24 23:26: POC Glucose 208 H 07/17/24 06:20: WBC 21.2 H, RBC 2.55 L, Hgb 7.1 L, Hct 23.7 L, MCV 92.9, MCH 27.8, MCHC 30.0 L, RDW Std Deviation 60.7 H, RDW Coeff of Frances 17.7 H, Plt Count 378, MPV 10.7, Immature Gran % (Auto) 2.800 H, Neut % (Auto) 79.8 H, Lymph % (Auto) 9.9 L, [place] % (Auto) 6.6, Eos % (Auto) 0.6, Baso % (Auto) 0.3, Absolute Neuts (auto) 17.0 H, Absolute Lymphs (auto) 2.11, Nucleated RBC % 0, Sodium 130 L, Potassium 5.1, Chloride 97 L, Carbon Dioxide 25.0, Anion Gap 8, BUN 82 H, Creatinine 6.15 H, Estim Creat Clear Calc 9.33, Est GFR (MDRD) Af Amer 11 L, Est GFR (MDRD) Non-Af 9 L, BUN/Creatinine Ratio 13.3, Glucose 213 H, Calcium 8.3 L, Random Vancomycin 13.2 07/17/24 08:25: POC Glucose 203 H 07/17/24 11:47: POC Glucose 226 H 07/17/24 16:27: POC Glucose 119 H Micro: Microbiology 07/13/24 16:24 Wound - Right Foot Gram Stain - Final 07/13/24 16:24 Wound - Right Foot Wound Culture - Final Meth. resistant Staph. aureus 07/13/24 16:24 Wound - Right Foot Anaerobic Culture - Preliminary Gram positive yessy 07/16/24 16:55 Tissue - Right Foot Gram Stain - Final 07/16/24 16:55 Tissue - Right Foot Tissue Culture - Preliminary Staphylococcus aureus 07/16/24 16:55 Tissue - Right Foot Gram Stain - Final 07/16/24 16:55 Tissue - Right Foot Wound Culture - Preliminary Staphylococcus aureus 07/16/24 16:55 Tissue - Right Foot Gram Stain - Final 07/16/24 16:55 Tissue - Right Foot Wound Culture - Preliminary Staphylococcus aureus 07/13/24 16:38 Blood Culture (Wb) - Right Hand Blood Culture - Final Meth. resistant Staph. aureus 07/13/24 16:38 Blood Culture (Wb) - Arm Right Bacteria Detection (PCR) - Final Meth. resistant Staph. aureus 07/13/24 16:38 Blood Culture (Wb) - Arm Right Blood Culture - Final Meth. resistant Staph. aureus 07/13/24 15:50 Mucosa - Nose SARS-CoV-2, Influenza & RSV (PCR) - Final Radiography Diagnostic Testing: Radiology Impression Foot X-Ray 07/16/24 15:03 IMPRESSION: Documentation of fluoroscopy use during surgical procedure of the right foot. Please see the operative note for details. Reading Location: [facility] Physical Exam Narrative Neurovascular status is unchanged. Right lower extremity dressing is donned clean dry and intact. No evidence of strikethrough. No pain to palpation over the dressing to the full-thickness wound over the TMA or right plantar heel. No pain with calf pressure. Const oriented x3 and no apparent distress Assessment & Plan Assessment/Plan (1) Osteomyelitis of right foot: QUALIFIERS: Osteomyelitis type: other chronic Qualified Code(s): M86.671 - Other chronic osteomyelitis, right ankle and foot PLAN: Patient was examined evaluated. All findings were discussed with the patient. All questions were answered to the patient satisfaction. Surgical pre-/post lavage cultures: Staph aureus Surgical bone cultures: Staph aureus Repeat blood cultures, 07/17/2024: Pending WBC: 17.4 -> 21.2 Glucose: 213 -> 119 Medicine: On board, medical management Nephrology: On board, , Hemodialysis Tuesday, and Tuesday scheduled. Infectious disease: On board, IV antibiotics vancomycin and meropenem. No vegetation seen on TTE. Recommend either PICC line and IV antibiotics versus antibiotics with hemodialysis as scheduled on Tuesday, and Tuesday. The patient is doing well after his right lower extremity surgery. Wound care nurse is doing daily dressing changes and will switch to Dakin's solution starting tomorrow. I also discussed with the patient as well as the [id number] that due to the severity and chronicity of the bacterial infection and bone infection in the right lower extremity I do recommend below-knee amputation at this time. However, family would like to move forward with limflow procedure consultation at [facility]. I did discuss with him that this is a good intervention for improved vascular flow to the right lower extremity as the patient has already undergone 2 interventions by vascular surgery at [facility]. I did discuss with the [id number] as well as the patient that if the additional vascular procedure was unsuccessful I would have to recommend below-knee amputation to the right lower extremity because wound care would be out of the question at that time. The patient had a [id number] were understanding of this. The patient is cleared from a podiatry perspective to discharge back to SNF once cleared by medicine and infectious disease team. The patient will follow back with Dr. Ruelas at the wound care center on Tuesdays. All wound care orders are in discharge. Please reach out to Dr. Garcia or Dr. Ruelas with any questions or concerns. Wound care nurse on board for dressing changes, will switch to Dakin's starting tomorrow. Thank you for letting me be involved in patient care. (2) Cellulitis of right foot: (3) Cutaneous abscess of right foot:
--- NOTE | 2024-07-17 17:53 | ART_ITS ---
Reason For Study Reason For Study: Poor Blood Flow Procedure A bilateral lower extremity continuous wave Doppler with analog waveform analysis and ankle brachial indexes. Left Segmental Pressures Left posterior tibial artery = >254mmHg. Left dorsalis pedis artery = >254mmHg. Left digit = 72 mmHg. Right Segmental Pressures Right brachial= 120mmHg. Right posterior tibial artery = >254mmHg. Right dorsalis pedis artery = >254mmHg. Indices The right ankle brachial index by the posterior tibial artery is NC. The right ankle brachial index by the dorsalis pedis is NC. The left ankle brachial index by the posterior tibial artery is NC. The left ankle brachial index by the dorsalis pedis is NC. The left digital-brachial index is 0.60. VL/Ankle Brachial Index Interpretation Summary Right RAN not able to be obtained due to non-compressible vessels. Doppler/PVR waveforms of the right ankle mildly diminished at rest. Left RAN not able to be obtained due to non-compressible vessels. TBI and Doppl er/PVR waveforms of the left ankle mildly diminished at rest. Ordering Physician: Jayla Osuna Referring Physician: Nando Wiggins Performed By: Demetra Tong RDCS/RVT
--- NOTE | 2024-07-17 17:53 | ADU_ITS ---
Reason For Study Reason For Study: PVD / HX RLE Amputation Right Velocities Left Velocities Ext. Iliac Artery, dist = 90.4 cm./sec. Ext Iliac Artery, dist = 84.7 cm./sec. Common Femoral Artery, mid = 69.5 cm./sec. Common Femoral Artery, mid = 89.1 cm./sec. Supf Femoral Artery, prox = 80.6 cm./sec. Supf. Femoral Artery, prox = 86.9 cm./sec. Supf Femoral Artery, mid = 76.9 cm./sec. Supf. Femoral Artery, mid = 73.8 cm./sec. Supf Femoral Artery, dist. = 73.2 cm./sec. Supf. Femoral Artery, dist = 69.4 cm./sec. Profunda Femoral Artery = 75.6 cm./sec. Profunda Femoral Artery = 43.8 cm./sec. Popliteal Artery, mid = 60.9 cm./sec. Popliteal Artery, mid = 51.8 cm./sec. Post. Tibial Artery, prox = 33.9 cm./sec. Post. Tibial Artery, prox = 135.2 cm./sec. Post. Tibial Artery, mid = 49.9 cm./sec. Post Tibial Artery, mid = 49.6 cm./sec. Peroneal Artery, prox = 46.2 cm./sec. Post Tibial Artery, dist. = 38.6 cm./sec. Ant. Tibial Artery, prox = 107.6 cm./sec. Peroneal Artery, mid = 58.4 cm./sec. Ant. Tibial Artery, mid = 73.8 cm./sec. Ant.Tibial Artery, prox = 29.0 cm./sec. Ant. Tibial Artery, dist = 89.1 cm./sec. Ant Tibial Artery, mid = 89.1 cm./sec. Unable to visualize Dist [employer] REPRESENTATIVE and Mid / Dist Cassandra A due to Ant. Tibial Artery, distal = 35.1 cm./sec. wounds and bandages. Unable to visualize Prox and Distal Cassandra A. Procedure Limited views obtained due to Patient positioning and intolerance to probe pressure. Exam performed portable in patient room. VL/US Art Duplex Bilat Lower Ext Interpretation Summary RIght lower extremity arteries patent with no focal stenosis/occlusion identifi ed. Unable to visualize distal PT/peroneal artery due to dressings. Left lower extremity arteries patent with no focal stenosis/occlusion identifie d. Unable to visualize proximal and distal peroneal artery Ordering Physician: Jayla Osuna Referring Physician: Nando Wiggins Performed By: Wali Tam RVT
[2024-07-17] MEDS: Vancomycin HCl 750 MG in 0.9% Normal Saline (250mL Bag) 250 ML 250 MG IV (20:38)
[2024-07-17] MEDS: Clopidogrel Bisulfate 75 MG Tablet PO (22:57)
[2024-07-18 00:35] VITALS: BP 112/62; PULSE 62; RESP 16; TEMP 36.6; O2SAT 98
[2024-07-18] MEDS: oxyCODONE 5 MG Tablet 2.5 MG PO (00:40)
[2024-07-18 02:31] LABS: Bedside Glucose 229 mg/dL (74-106)
[2024-07-18 04:40] VITALS: BP 113/45; PULSE 61; RESP 16; TEMP 37.2; O2SAT 96
[2024-07-18 05:15] VITALS: BMI 32.5
[2024-07-18 07:30] LABS: Absolute Lymphocyte Count 2.11 X10^3/uL (0.83-4.51); Absolute Neutrophil Count 13.9 X10^3/uL (2.0-7.7); Basophil# 0.06 X10^3/uL; Basophil% 0.3 % (0-1); Eosinophils% 1.6 % (0-5); Hematocrit 25.1 % (40-54); Hemoglobin 7.6 g/dL (13.0-16.5); Lymphocyte # 2.11 X10^3/ul (0.83-4.51); Lymphocyte % 11.4 % (19-41); Mean Corp Hgb Conc 30.3 g/dL (32-36); Mean Corpuscular Hgb 28.1 pg (27.0-32.0); Mean Platelet Vol. 10.5 fl (6.2-12.0); Monocyte# 1.56 X10^3/uL; Monocyte% 8.4 % (0-10); NRBC Flagged by Analyzer 0.1 % (0-5); Neutrophil # 13.85 X10^3/uL (2.7-7.7); Neutrophil % 75.1 % (47-70); POSITIVE DIFFERENTIAL YES; Platelet Count 402 K/mm3 (150-450); RBC Distribution Width CV 17.8 % (11.6-14.6); RBC Distribution Width SD 60.3 fl (35.1-43.9); White Blood Count 18.5 K/mm3 (4.4-11.0)
[2024-07-18 07:31] LABS: Differential Indicated SCAN CRITERIA MET
[2024-07-18 07:38] VITALS: BP 106/38; PULSE 56; RESP 16; TEMP 36.6; O2SAT 97
[2024-07-18] MEDS: Aspirin E.C. 81 MG Tablet PO (07:50)
[2024-07-18] MEDS: Juven (unflavored) Packet 1 PACKET PO ×2 (07:50→22:19)
[2024-07-18] MEDS: Acetaminophen 325 MG Tablet 650 MG PO (07:51)
[2024-07-18] MEDS: Insulin Lispro 100 UNIT/ML INSULN.PEN 7 UNIT SC ×3 (07:51→17:36)
[2024-07-18] MEDS: Insulin Lispro 100 UNIT/ML INSULN.PEN SC ×2 (07:51→17:35)
[2024-07-18] MEDS: Senna/Docusate Sodium 1 Tablet 2 TABLET PO (07:51)
[2024-07-18] MEDS: Insulin Glargine-YFGN 100 UNIT/ML Pen 10 UNIT SC (07:52)
[2024-07-18] MEDS: Menthol/Lanolin/Calamine/Znox 113 GM Tube 1 APPLIC TOPICAL ×2 (07:53→22:19)
[2024-07-18] MEDS: Torsemide 100 MG Tablet PO (07:53)
[2024-07-18 08:04] LABS: Bedside Glucose 155 mg/dL (74-106)
--- NOTE | 2024-07-18 08:20 | PN.HOSP_ITS ---
Reason for Visit Reason for Visit: Right foot wound Subjective Subjective Patient has no complaints today states he is feeling well. Wants to take a nap. Denies any significant pain. Objective Data Objective Data Vital Signs: Vital Signs Temp Pulse Resp BP Pulse Ox O2 Del Method O2 Flow Rate 97.9 F 56 L 16 106/38 L 97 Room Air 2 07/18/24 07:38 07/18/24 07:38 07/18/24 07:38 07/18/24 07:38 07/18/24 07:38 07/18/24 07:38 07/16/24 15:18 Oxygen Flow Rate (L/min) 2 Oxygen Delivery Method Room Air Weight: 94.2 kg Body Mass Index (BMI) 32.5 Intake & Output: Intake and Output for Last 24 Hours 07/16/24 07/17/24 07/18/24 23:59 23:59 23:59 Intake Total 745 / 745 385 / 585 200 / 200 Output Total 2170 / 2170 Balance 745 / 745 -1785 / -1585 200 / 200 Lab / Micro Data 07/18/24 07:09 07/18/24 07:09 Labs: Laboratory Results - last 24 hr 07/17/24 08:25: POC Glucose 203 H 07/17/24 11:47: POC Glucose 226 H 07/17/24 16:27: POC Glucose 119 H 07/17/24 22:55: POC Glucose 229 H 07/18/24 07:09: WBC 18.5 H, RBC 2.70 L, Hgb 7.6 L, Hct 25.1 L, MCV 93.0, MCH 28.1, MCHC 30.3 L, RDW Std Deviation 60.3 H, RDW Coeff of Frances 17.8 H, Plt Count 402, MPV 10.5, Immature Gran % (Auto) 3.200 H, Neut % (Auto) 75.1 H, Lymph % (Auto) 11.4 L, [place] % (Auto) 8.4, Eos % (Auto) 1.6, Baso % (Auto) 0.3, Absolute Neuts (auto) 13.9 H, Absolute Lymphs (auto) 2.11, Nucleated RBC % 0.1, Diff Path Review September07/18/24 07:36: POC Glucose 155 H Micro: Microbiology 07/13/24 16:24 Wound - Right Foot Gram Stain - Final 07/13/24 16:24 Wound - Right Foot Wound Culture - Final Meth. resistant Staph. aureus 07/13/24 16:24 Wound - Right Foot Anaerobic Culture - Final Clostridium perfringens 07/16/24 16:55 Tissue - Right Foot Gram Stain - Final 07/16/24 16:55 Tissue - Right Foot Tissue Culture - Final Meth. resistant Staph. aureus 07/16/24 16:55 Tissue - Right Foot Gram Stain - Final 07/16/24 16:55 Tissue - Right Foot Wound Culture - Final Meth. resistant Staph. aureus 07/16/24 16:55 Tissue - Right Foot Gram Stain - Final 07/16/24 16:55 Tissue - Right Foot Wound Culture - Final Meth. resistant Staph. aureus 07/16/24 08:32 Blood Culture (Wb) - Anticubital Right Blood Culture - Preliminary No growth in 48 hours. 07/13/24 16:38 Blood Culture (Wb) - Right Hand Blood Culture - Final Meth. resistant Staph. aureus 07/13/24 16:38 Blood Culture (Wb) - Arm Right Bacteria Detection (PCR) - Final Meth. resistant Staph. aureus 07/13/24 16:38 Blood Culture (Wb) - Arm Right Blood Culture - Final Meth. resistant Staph. aureus 07/13/24 15:50 Mucosa - Nose SARS-CoV-2, Influenza & RSV (PCR) - Final Physical Exam Const alert, oriented x3, no apparent distress and well nourished; Negative for average body habitus or healthy appearing Constitutional Narrative: Obese, elderly, white male, lying in bed, appears comfortable, does not appear toxic HEENT head/scalp atraumatic and moist oral mucous membranes Head and Scalp: normocephalic Resp normal respiratory effort, no retractions, no use of accessory muscles and clear to auscultation bilaterally Auscultation: Negative for rales, rhonchi or wheezes Cardio regular rate, regular rhythm, S1 normal heart sound, S2 normal heart sound, no murmurs, no rub, no gallops and no clicks GI normal to inspection, nondistended, normoactive bowel sounds, soft to palpation and non-tender Extremity Extremity Narrative: Right lower extremity with postoperative dressing in place, no cyanosis or clubbing Neuro oriented x3 and moves all extremities Speech: speech normal Psych affect normal Psych Narrative: Interacts appropriately Assessment & Plan Assessment/Plan (1) Cutaneous abscess of right foot: (2) Osteomyelitis of right foot: QUALIFIERS: Osteomyelitis type: other chronic Qualified Code(s): M86.671 - Other chronic osteomyelitis, right ankle and foot (3) MRSA bacteremia: PLAN: Plan Right foot infection (cellulitis/osteomyelitis) secondary to MRSA -Patient went to nursing facility with a wound VAC -Was being followed by podiatry and wound care -Cultures show MRSA -ID is following with repeat blood cultures thus far no growth to date -Continue vancomycin and meropenem -Current plan for discharge with 6 weeks of IV vancomycin dosed with dialysis MRSA bacteremia -Echocardiogram was unremarkable -Repeat blood cultures were no growth to date at 48 hours -Current plan for discharge is 6 weeks of IV vancomycin dosed with dialysis Leukocytosis -Persistent -Repeat blood cultures are negative -ID is following -repeat CBC in the a.m. Chronic anemia secondary to end-stage renal disease -Hemoglobin between 7 and 8 at baseline -Repeat CBC in a.m. End-stage renal disease-HD dependent -Nephrology is following -Continue renal diet DM-2 -Continue subcu insulin 10 units twice daily -Continue prandial insulin as ordered -Continue SSI -Accu-Cheks as ordered History of peripheral vascular disease -Continue aspirin and Plavix Chronic HFpEF -Remains compensated -Continue daily weights -Continue I's and O's -Continue home torsemide Obesity -BMI is 32.5 -Recommend weight loss -Complicates treatment, prognosis, outcomes DVT prophylaxis -With operative management done will start heparin 3 times daily CODE STATUS Full code Charges/Coding Visit Charges Inpatient E&M: 20417 Subs Hosp L2
--- NOTE | 2024-07-18 09:38 | CASEMGMT ---
Discharge Planning Requested updates sent to [facility]. Alanna Gaston DC Planning Asst.
--- NOTE | 2024-07-18 10:28 | WOUNDNOTE ---
wound photo: right foot
--- NOTE | 2024-07-18 10:29 | WOUNDNOTE ---
wound photo: right foot
--- NOTE | 2024-07-18 10:39 | CASEMGMT ---
Social Work- SW received a call from pt son-in-law who was checking in on vascular study, ID recommendations, and discharge. SW relayed that discharge will be dependent on when ID feels they have completed work-up. SW coordinated with bedside nurse and asked her to call pt son regarding medical questions. SW remains available to follow. Plan: [facility]; pend precert TERRI Keating
[2024-07-18 11:47] LABS: Bedside Glucose 139 mg/dL (74-106)
--- NOTE | 2024-07-18 13:17 | PCM.PN.REN ---
Subjective Subjective no new events Objective Data Objective Data Vital Signs: Vital Signs Temp Pulse Resp BP Pulse Ox O2 Del Method O2 Flow Rate 97.9 F 56 L 16 106/38 L 97 Room Air 2 07/18/24 07:38 07/18/24 07:38 07/18/24 07:38 07/18/24 07:38 07/18/24 07:38 07/18/24 07:38 07/16/24 15:18 Oxygen Flow Rate (L/min) 2 Oxygen Delivery Method Room Air Weight: 94.2 kg Body Mass Index (BMI) 32.5 Intake & Output: Intake and Output for Last 24 Hours 07/16/24 07/17/24 07/18/24 23:59 23:59 23:59 Intake Total 745 / 745 385 / 585 200 / 200 Output Total 2170 / 2170 Balance 745 / 745 -1785 / -1585 200 / 200 Lab / Micro Data 07/18/24 07:09 07/18/24 07:09 Labs: Laboratory Results - last 24 hr 07/17/24 16:27: POC Glucose 119 H 07/17/24 22:55: POC Glucose 229 H 07/18/24 07:09: WBC 18.5 H, RBC 2.70 L, Hgb 7.6 L, Hct 25.1 L, MCV 93.0, MCH 28.1, MCHC 30.3 L, RDW Std Deviation 60.3 H, RDW Coeff of Frances 17.8 H, Plt Count 402, MPV 10.5, Immature Gran % (Auto) 3.200 H, Neut % (Auto) 75.1 H, Lymph % (Auto) 11.4 L, [place] % (Auto) 8.4, Eos % (Auto) 1.6, Baso % (Auto) 0.3, Absolute Neuts (auto) 13.9 H, Absolute Lymphs (auto) 2.11, Nucleated RBC % 0.1, Diff Path Review September, BUN 60 H, Creatinine 4.5 H, Estim Creat Clear Calc 12.65, Est GFR (MDRD) Non-Af 12 L, BUN/Creatinine Ratio 13.5, Glucose 157 H 07/18/24 07:36: POC Glucose 155 H 07/18/24 11:29: POC Glucose 139 H Micro: Microbiology 07/13/24 16:24 Wound - Right Foot Gram Stain - Final 07/13/24 16:24 Wound - Right Foot Wound Culture - Final Meth. resistant Staph. aureus 07/13/24 16:24 Wound - Right Foot Anaerobic Culture - Final Clostridium perfringens 07/16/24 16:55 Tissue - Right Foot Gram Stain - Final 07/16/24 16:55 Tissue - Right Foot Tissue Culture - Final Meth. resistant Staph. aureus 07/16/24 16:55 Tissue - Right Foot Gram Stain - Final 07/16/24 16:55 Tissue - Right Foot Wound Culture - Final Meth. resistant Staph. aureus 07/16/24 16:55 Tissue - Right Foot Gram Stain - Final 07/16/24 16:55 Tissue - Right Foot Wound Culture - Final Meth. resistant Staph. aureus 07/16/24 08:32 Blood Culture (Wb) - Anticubital Right Blood Culture - Preliminary No growth in 48 hours. 07/13/24 16:38 Blood Culture (Wb) - Right Hand Blood Culture - Final Meth. resistant Staph. aureus 07/13/24 16:38 Blood Culture (Wb) - Arm Right Bacteria Detection (PCR) - Final Meth. resistant Staph. aureus 07/13/24 16:38 Blood Culture (Wb) - Arm Right Blood Culture - Final Meth. resistant Staph. aureus 07/13/24 15:50 Mucosa - Nose SARS-CoV-2, Influenza & RSV (PCR) - Final Physical Exam Narrative Alert awake oriented x 3 no obvious distress no pallor no icterus no JVD s1s2 no murmurs lungs clear abdomen soft no organomegaly no edema no cyanosis Assessment & Plan Assessment/Plan (1) End stage renal disease: PLAN: On hemodialysis Tuesday, , Tuesday schedule. continue as per schedule Foot osteomyelitis with bacteremia. ID on consult.
[2024-07-18 13:35] LABS: Pathologist Review Reviewed
--- NOTE | 2024-07-18 14:17 | PCM.PN.ID ---
Physical Exam Narrative Feeling better, no fever, no n/v/d. Const alert and no apparent distress Resp normal air movement and clear to auscultation bilaterally Cardio regular rate and regular rhythm GI soft to palpation, non-tender and non-distended Skin Skin Narrative: foot wrapped ID ID: Route of nutrition/ use of supplements: [] Nutritional Intake: [] IV Site: [] Lozano Catheter: [] Assessment & Plan Assessment/Plan (1) Diabetic infection of right foot: (2) End stage renal disease: (3) MRSA bacteremia: PLAN: Due to R foot infection. OR 07/16/24 for I&D with Dr. Garcia. Repeat bcx ngtd at 48h. No veg seen on TTE. Cont vanc/juancarlos. Plan on 6 weeks iv vanc dosed with HD at discharge. Will follow
[2024-07-18 14:44] VITALS: BP 125/32; PULSE 54; RESP 16; TEMP 36.6; O2SAT 96
[2024-07-18] MEDS: Meropenem 1 GM in 0.9% Normal Saline (100mL MB+) 100 ML IV (14:49)
[2024-07-18] MEDS: 0.9% Saline Lock 10 ML Syringe IV ×2 (14:50→22:27)
--- NOTE | 2024-07-18 15:01 | CASEMGMT ---
Addendum entered by Natalie Quinn 07/18/24 15:43: TC to [facility], spoke with Briana, she states they can dose vancomycin after HD and this is a med they have in stock. The order will need faxed at dc to them at [phone]. Original Note: Negar from [facility] called requesting update on pt dc plan, gave update at this time.
[2024-07-18 16:34] LABS: Bedside Glucose 156 mg/dL (74-106)
[2024-07-18] MEDS: 0.9% Normal Saline (100mL Bag) 100 ML 15 ML IV (18:30)
[2024-07-18 20:23] VITALS: BP 125/43; PULSE 59; RESP 15; TEMP 36.4; O2SAT 99
[2024-07-18] MEDS: Heparin Injection (Vial) 5,000 UNIT/ML VIAL 5000 UNIT SC (22:19)
[2024-07-18] MEDS: Clopidogrel Bisulfate 75 MG Tablet PO (22:19)
[2024-07-18 23:00] LABS: Bedside Glucose 110 mg/dL (74-106)
[2024-07-19] VITALS (13 sets, daily range): BP systolic 111–228; BP diastolic 40–74; PULSE 57–93; RESP 13–16; TEMP 36.3–37; O2SAT 97–99; BMI 32.7; BMI 31.8
[2024-07-19] MEDS: BENZOCAINE/MENTHOL 1 LOZENGE 2 LOZENGE MUCOUS MEM (03:26)
[2024-07-19] MEDS: Heparin Injection (Vial) 5,000 UNIT/ML VIAL 5000 UNIT SC ×3 (05:28→21:13)
[2024-07-19 06:22] LABS: Absolute Lymphocyte Count 2.07 X10^3/uL (0.83-4.51); Absolute Neutrophil Count 13.1 X10^3/uL (2.0-7.7); Basophil# 0.08 X10^3/uL; Basophil% 0.5 % (0-1); Eosinophil# 0.28 X10^3/uL; Eosinophils% 1.6 % (0-5); Hematocrit 25.5 % (40-54); Hemoglobin 7.7 g/dL (13.0-16.5); Lymphocyte # 2.07 X10^3/ul (0.83-4.51); Lymphocyte % 12.1 % (19-41); Mean Corp Hgb Conc 30.2 g/dL (32-36); Mean Corpuscular Hgb 28.1 pg (27.0-32.0); Mean Corpuscular Volume 93.1 fL (80-94); Mean Platelet Vol. 10.6 fl (6.2-12.0); Monocyte# 1.22 X10^3/uL; Monocyte% 7.1 % (0-10); NRBC Flagged by Analyzer 0 % (0-5); Neutrophil # 13.13 X10^3/uL (2.7-7.7); Neutrophil % 76.4 % (47-70); Platelet Count 467 K/mm3 (150-450); RBC Distribution Width CV 17.7 % (11.6-14.6); RBC Distribution Width SD 59.6 fl (35.1-43.9); Red Blood Count 2.74 M/mm3 (4.6-6.2); White Blood Count 17.2 K/mm3 (4.4-11.0)
[2024-07-19 06:56] LABS: Vancomycin, Random Level 16.7 ug/mL (0.0-15.0)
[2024-07-19] MEDS: DAKIN'S SOL HALF STRENGTH (=0.25%) TOPICAL (08:01)
--- NOTE | 2024-07-19 08:26 | PCM.RX.CS ---
Consult Antibiotic Management Pharmacy has been consulted to manage selected antibiotic: Vancomycin Type of Intervention Type of Consult: Follow-up Labs Labs: BUN 83 mg/dL (4-19) H 07/19/24 06:13 Creatinine 5.5 mg/dL (0.8-1.3) H 07/19/24 06:13 Est GFR (MDRD) Non-Af 9 (>60) L 07/19/24 06:13 BUN/Creatinine Ratio 15.2 RATIO (10-20) 07/19/24 06:13 Glucose 173 mg/dL (70-99) H 07/19/24 06:13 Random Vancomycin 16.7 ug/mL (0.0-15.0) H 07/19/24 05:59 Microbiology Microbiology: Microbiology 07/17/24 08:50 Blood Culture (Wb) - Right Hand Blood Culture - Preliminary No growth in 48 hours. 07/13/24 16:24 Wound - Right Foot Gram Stain - Final 07/13/24 16:24 Wound - Right Foot Wound Culture - Final Meth. resistant Staph. aureus 07/13/24 16:24 Wound - Right Foot Anaerobic Culture - Final Clostridium perfringens 07/16/24 16:55 Tissue - Right Foot Gram Stain - Final 07/16/24 16:55 Tissue - Right Foot Tissue Culture - Final Meth. resistant Staph. aureus 07/16/24 16:55 Tissue - Right Foot Gram Stain - Final 07/16/24 16:55 Tissue - Right Foot Wound Culture - Final Meth. resistant Staph. aureus 07/16/24 16:55 Tissue - Right Foot Gram Stain - Final 07/16/24 16:55 Tissue - Right Foot Wound Culture - Final Meth. resistant Staph. aureus 07/16/24 08:32 Blood Culture (Wb) - Anticubital Right Blood Culture - Preliminary No growth in 48 hours. 07/13/24 16:38 Blood Culture (Wb) - Right Hand Blood Culture - Final Meth. resistant Staph. aureus 07/13/24 16:38 Blood Culture (Wb) - Arm Right Bacteria Detection (PCR) - Final Meth. resistant Staph. aureus 07/13/24 16:38 Blood Culture (Wb) - Arm Right Blood Culture - Final Meth. resistant Staph. aureus 07/13/24 15:50 Mucosa - Nose SARS-CoV-2, Influenza & RSV (PCR) - Final Goal Trough Goal Trough: 15-20 mcg/mL Pharmacy Plan for Drug Dosing Pharmacy Plan for Drug Dosing: VANCOMYCIN LEVEL RECEIVED Current Vancomycin Dose: Dosing per pre-HD levels Number of Doses Received: 3 Vancomycin Level: 16.7 Hours Since Last Dose: n/a Renal Function: on Hemodialysis- schedule is // Renal Function Trend: on HD Lab/Micro: Cultures growing MRSA, sensitive to vancomycin Vancomycin Plan/Comments: Patient had a pre-HD level drawn which resulted in a value of 16.7. Patient does have dialysis scheduled for today. Will plan to give 500mg IV x1 post-HD today. Pending Level: Pre-HD level 07/21/24 with AM labs Pharmacy Service will continue to monitor and adjust dosing as required.
--- NOTE | 2024-07-19 08:54 | CASEMGMT ---
Discharge Planning Updates sent to [facility] with note to submit for precert. Alanna Gaston DC Planning Asst.
[2024-07-19] MEDS: PureFlow B 2K Dialysis Soln 1 BAG 6 BAG PF (09:02)
[2024-07-19] MEDS: 0.9% Normal Saline 1,000 ML IV.SOLN. 1000 ML OPERA.SITE (09:02)
[2024-07-19] MEDS: Insulin Lispro 100 UNIT/ML INSULN.PEN SC ×2 (09:12→16:23)
[2024-07-19] MEDS: Insulin Lispro 100 UNIT/ML INSULN.PEN 7 UNIT SC ×2 (09:13→16:23)
[2024-07-19] MEDS: Insulin Glargine-YFGN 100 UNIT/ML Pen 10 UNIT SC ×2 (09:14→21:19)
--- NOTE | 2024-07-19 10:29 | PCM.PN.ID ---
Physical Exam Narrative HD this AM, sleeping, no fever Const no apparent distress Resp normal air movement and clear to auscultation bilaterally Cardio regular rate and regular rhythm GI soft to palpation, non-tender and non-distended Skin Skin Narrative: foot wrapped ID ID: Route of nutrition/ use of supplements: [] Nutritional Intake: [] IV Site: [] Lozano Catheter: [] Assessment & Plan Assessment/Plan (1) Diabetic infection of right foot: (2) End stage renal disease: (3) MRSA bacteremia: PLAN: Due to R foot infection. OR 07/16/24 for I&D with Dr. Garcia. Repeat bcx ngtd at over 48h. No veg seen on TTE. Cont vanc. Plan on 6 weeks iv vanc dosed with HD at discharge, 750mg qTTS, stop date 08/27/24. Will follow, ID followup 2 weeks, d/w telephonic case manager
--- NOTE | 2024-07-19 11:54 | CASEMGMT ---
Addendum entered by Natalie Quinn 07/19/24 12:39: Received tc from [facility], she states that will follow pt for this atb. ISABEL CHENG to notify when pt dc's from the hospital, otherwise they do not need anything else to administer the medication. Original Note: Faxed IV atb rx to [facility]. TC to [facility], she received the fax, she is aware that we are awaiting precert for pt to go back to [facility] and the earliest this will be needed is Tuesday. She states she emailed her boss to verify they can do this. Made her aware that this was confirmed yesterday. ISABEL CHENG to follow.
[2024-07-19 12:46] LABS: Bedside Glucose 120 mg/dL (74-106)
--- NOTE | 2024-07-19 13:04 | PN.RENAL_ITS ---
Subjective Subjective seen on HD today Objective Data Objective Data Vital Signs: Vital Signs Temp Pulse Resp BP Pulse Ox O2 Del Method O2 Flow Rate 97.4 F L 57 L 14 140/45 H 97 Room Air 2 07/19/24 12:24 07/19/24 12:24 07/19/24 12:24 07/19/24 12:24 07/19/24 12:24 07/19/24 12:24 07/16/24 15:18 Oxygen Flow Rate (L/min) 2 Oxygen Delivery Method Room Air Weight: 92.2 kg Body Mass Index (BMI) 31.8 Intake & Output: Intake and Output for Last 24 Hours 07/17/24 07/18/24 07/19/24 23:59 23:59 23:59 Intake Total 385 / 585 673.25 / 673.25 250 / 250 Output Total 2170 / 2170 2500 / 2500 Balance -1785 / -1585 673.25 / 673.25 -2250 / -2250 Lab / Micro Data 07/19/24 06:13 07/19/24 06:13 Labs: Laboratory Results - last 24 hr 07/18/24 07:09: Diff Path Review Reviewed, BUN 63 H, Creatinine 4.6 H, Estim Creat Clear Calc 12.41, BUN/Creatinine Ratio 13.7, Glucose 130 H 07/18/24 16:15: POC Glucose 156 H 07/18/24 22:24: POC Glucose 110 H 07/19/24 05:59: Random Vancomycin 16.7 H 07/19/24 06:13: WBC 17.2 H, RBC 2.74 L, Hgb 7.7 L, Hct 25.5 L, MCV 93.1, MCH 28.1, MCHC 30.2 L, RDW Std Deviation 59.6 H, RDW Coeff of Frances 17.7 H, Plt Count 467 H, MPV 10.6, Immature Gran % (Auto) 2.300 H, Neut % (Auto) 76.4 H, Lymph % (Auto) 12.1 L, [place] % (Auto) 7.1, Eos % (Auto) 1.6, Baso % (Auto) 0.5, Absolute Neuts (auto) 13.1 H, Absolute Lymphs (auto) 2.07, Nucleated RBC % 0, BUN 84 H, C reatinine 5.5 H, Estim Creat Clear Calc 10.38, Est GFR (MDRD) Non-Af 9 L, BUN/Creatinine Ratio 15.2, Glucose 165 H 07/19/24 12:26: POC Glucose 120 H Micro: Microbiology 07/16/24 16:55 Tissue - Right Foot Gram Stain - Final 07/16/24 16:55 Tissue - Right Foot Tissue Culture - Final Meth. resistant Staph. aureus 07/16/24 16:55 Tissue - Right Foot Anaerobic Culture - Preliminary 07/16/24 16:55 Tissue - Right Foot Gram Stain - Final 07/16/24 16:55 Tissue - Right Foot Wound Culture - Final Meth. resistant Staph. aureus 07/16/24 16:55 Tissue - Right Foot Anaerobic Culture - Preliminary 07/16/24 16:55 Tissue - Right Foot Gram Stain - Final 07/16/24 16:55 Tissue - Right Foot Wound Culture - Final Meth. resistant Staph. aureus 07/16/24 16:55 Tissue - Right Foot Anaerobic Culture - Preliminary 07/17/24 08:50 Blood Culture (Wb) - Right Hand Blood Culture - Preliminary No growth in 48 hours. 07/13/24 16:24 Wound - Right Foot Gram Stain - Final 07/13/24 16:24 Wound - Right Foot Wound Culture - Final Meth. resistant Staph. aureus 07/13/24 16:24 Wound - Right Foot Anaerobic Culture - Final Clostridium perfringens 07/16/24 08:32 Blood Culture (Wb) - Anticubital Right Blood Culture - Preliminary No growth in 48 hours. 07/13/24 16:38 Blood Culture (Wb) - Right Hand Blood Culture - Final Meth. resistant Staph. aureus 07/13/24 16:38 Blood Culture (Wb) - Arm Right Bacteria Detection (PCR) - Final Meth. resistant Staph. aureus 07/13/24 16:38 Blood Culture (Wb) - Arm Right Blood Culture - Final Meth. resistant Staph. aureus 07/13/24 15:50 Mucosa - Nose SARS-CoV-2, Influenza & RSV (PCR) - Final Radiography Diagnostic Testing: Radiology Impression Duplex Scan Lower Extremity Artery 07/17/24 17:53 Interpretation Summary RIght lower extremity arteries patent with no focal stenosis/occlusion identified. Unable to visualize distal PT/peroneal artery due to dressings. Left lower extremity arteries patent with no focal stenosis/occlusion identified. Unable to visualize proximal and distal peroneal artery Ordering Physician: Jayla Osuna Referring Physician: Nando Wiggins Performed By: Wali Tam RVT Physical Exam Narrative Alert awake oriented x 3 no obvious distress no pallor no icterus no JVD s1s2 no murmurs lungs clear abdomen soft no organomegaly no edema no cyanosis Assessment & Plan Assessment/Plan (1) End stage renal disease: PLAN: On hemodialysis Tuesday, , Tuesday schedule. continue as per schedule. HD today. see orders. Foot osteomyelitis with bacteremia. ID on consult. vancomycin with HD. called and spoke to HD unit, confirmed 750 mg as per ID recs
--- NOTE | 2024-07-19 13:37 | CASEMGMT ---
Social Work SW met with pt son in law per his request. SW informed that clinicals faxed to [facility] this morning and requested precert be started. Also updated that IV ATB will be administered at dialysis. Nurse updated that [facility] is requesting medical update. Plan: [facility], pending precert TERRI Zapata
[2024-07-19 13:40] LABS: Carbon Dioxide 22.7 mmol/L (22.0-29.0); Chloride 97 mmol/L (96-108); Sodium Level 133 mmol/L (133-145)
[2024-07-19 13:43] LABS: BUN 63 mg/dL (4-19); BUN/Creat Ratio 13.7 RATIO (10-20); Calcium 8.9 mg/dL (7.6-11.0); Creatinine, Serum 4.6 mg/dL (0.8-1.3); Glucose 130 mg/dL (70-99)
[2024-07-19] MEDS: Aspirin E.C. 81 MG Tablet PO (14:04)
[2024-07-19] MEDS: Menthol/Lanolin/Calamine/Znox 113 GM Tube 1 APPLIC TOPICAL (14:04)
[2024-07-19] MEDS: Juven (unflavored) Packet 1 PACKET PO ×2 (14:04→21:13)
[2024-07-19 14:35] LABS: EST Glomerular Filtration Rate 12 (>60)
[2024-07-19 14:36] LABS: Estimated Creatinine Clearance 12.41 ml/min
[2024-07-19 14:37] LABS: Anion Gap 13 (5-15)
--- NOTE | 2024-07-19 15:29 | CASEMGMT ---
Discharge Planning Updated therapy notes sent to [facility]. Alanna Gaston DC Planning Asst.
[2024-07-19 16:21] LABS: Bedside Glucose 227 mg/dL (74-106)
--- NOTE | 2024-07-19 16:52 | CASEMGMT ---
[facility] has obtained auth to admit. SW updated. Alanna Gaston DC Planning Asst.
[2024-07-19] MEDS: Vancomycin IV 500 MG/100 ML BAG 100 MG IV (17:08)
--- NOTE | 2024-07-19 18:33 | PN.HOSP_ITS ---
Reason for Visit Reason for Visit: Right foot wound Subjective Subjective No issues overnight. Patient currently on dialysis. Awaiting pre-CERT. Objective Data Objective Data Vital Signs: Vital Signs Temp Pulse Resp BP Pulse Ox O2 Del Method O2 Flow Rate 97.3 F L 65 16 140/74 H 97 Room Air 2 07/19/24 14:30 07/19/24 14:30 07/19/24 14:30 07/19/24 14:30 07/19/24 12:24 07/19/24 14:30 07/16/24 15:18 Oxygen Flow Rate (L/min) 2 Oxygen Delivery Method Room Air Weight: 92.2 kg Body Mass Index (BMI) 31.8 Intake & Output: Intake and Output for Last 24 Hours 07/17/24 07/18/24 07/19/24 23:59 23:59 23:59 Intake Total 385 / 585 673.25 / 673.25 353.25 / 353.25 Output Total 2170 / 2170 2500 / 2500 Balance -1785 / -1585 673.25 / 673.25 -2146.75 / -2146.75 Lab / Micro Data 07/19/24 06:13 07/19/24 06:13 Labs: Laboratory Results - last 24 hr 07/18/24 07:09: Sodium Cancelled 07/18/24 07:09: Sodium 133, Potassium Cancelled 07/18/24 07:09: Potassium 5.0, Chloride Cancelled, Chloride Direct 97, Carbon Dioxide Cancelled 07/18/24 07:09: Carbon Dioxide 22.7, Anion Gap Cancelled 07/18/24 07:09: Anion Gap 13, BUN Cancelled 07/18/24 07:09: BUN 63 H, Creatinine Cancelled 07/18/24 07:09: Creatinine 4.6 H, Estim Creat Clear Calc Cancelled 07/18/24 07:09: Estim Creat Clear Calc 12.41, Est GFR (MDRD) Af Amer Cancelled, Est GFR (MDRD) Non-Af Cancelled 07/18/24 07:09: Est GFR (MDRD) Non-Af 12 L, BUN/Creatinine Ratio Cancelled 07/18/24 07:09: BUN/Creatinine Ratio 13.7, Glucose Cancelled 07/18/24 07:09: Glucose 130 H, Calcium Cancelled 07/18/24 07:09: Calcium 8.9 07/18/24 22:24: POC Glucose 110 H 07/19/24 05:59: Random Vancomycin 16.7 H 07/19/24 06:13: WBC 17.2 H, RBC 2.74 L, Hgb 7.7 L, Hct 25.5 L, MCV 93.1, MCH 28.1, MCHC 30.2 L, RDW Std Deviation 59.6 H, RDW Coeff of Frances 17.7 H, Plt Count 467 H, MPV 10.6, Immature Gran % (Auto) 2.300 H, Neut % (Auto) 76.4 H, Lymph % (Auto) 12.1 L, [place] % (Auto) 7.1, Eos % (Auto) 1.6, Baso % (Auto) 0.5, Absolute Neuts (auto) 13.1 H, Absolute Lymphs (auto) 2.07, Nucleated RBC % 0, BUN 84 H, C reatinine 5.5 H, Estim Creat Clear Calc 10.38, Est GFR (MDRD) Non-Af 9 L, BUN/Creatinine Ratio 15.2, Glucose 165 H 07/19/24 12:26: POC Glucose 120 H 07/19/24 16:03: POC Glucose 227 H Micro: Microbiology 07/16/24 16:55 Tissue - Right Foot Gram Stain - Final 07/16/24 16:55 Tissue - Right Foot Tissue Culture - Final Meth. resistant Staph. aureus 07/16/24 16:55 Tissue - Right Foot Anaerobic Culture - Preliminary 07/16/24 16:55 Tissue - Right Foot Gram Stain - Final 07/16/24 16:55 Tissue - Right Foot Wound Culture - Final Meth. resistant Staph. aureus 07/16/24 16:55 Tissue - Right Foot Anaerobic Culture - Preliminary 07/16/24 16:55 Tissue - Right Foot Gram Stain - Final 07/16/24 16:55 Tissue - Right Foot Wound Culture - Final Meth. resistant Staph. aureus 07/16/24 16:55 Tissue - Right Foot Anaerobic Culture - Preliminary 07/17/24 08:50 Blood Culture (Wb) - Right Hand Blood Culture - Preliminary No growth in 48 hours. 07/13/24 16:24 Wound - Right Foot Gram Stain - Final 07/13/24 16:24 Wound - Right Foot Wound Culture - Final Meth. resistant Staph. aureus 07/13/24 16:24 Wound - Right Foot Anaerobic Culture - Final Clostridium perfringens 07/16/24 08:32 Blood Culture (Wb) - Anticubital Right Blood Culture - Preliminary No growth in 48 hours. 07/13/24 16:38 Blood Culture (Wb) - Right Hand Blood Culture - Final Meth. resistant Staph. aureus 07/13/24 16:38 Blood Culture (Wb) - Arm Right Bacteria Detection (PCR) - Final Meth. resistant Staph. aureus 07/13/24 16:38 Blood Culture (Wb) - Arm Right Blood Culture - Final Meth. resistant Staph. aureus 07/13/24 15:50 Mucosa - Nose SARS-CoV-2, Influenza & RSV (PCR) - Final Physical Exam Const alert, oriented x3, no apparent distress and well nourished; Negative for average body habitus or healthy appearing Constitutional Narrative: Obese, elderly, white male, lying in bed, appears comfortable, does not appear toxic, currently on dialysis with dialysis nurse at bedside Neuro Neuro Narrative: Patient sleeping Psych Psych Narrative: Unable to assess as patient was sleeping Assessment & Plan Assessment/Plan (1) Cutaneous abscess of right foot: (2) Osteomyelitis of right foot: QUALIFIERS: Osteomyelitis type: other chronic Qualified Code(s): M86.671 - Other chronic osteomyelitis, right ankle and foot (3) MRSA bacteremia: PLAN: Plan Right foot infection (cellulitis/osteomyelitis) secondary to MRSA -Patient went to nursing facility with a wound VAC -Was being followed by podiatry and wound care -Cultures show MRSA -ID is following with repeat blood cultures thus far no growth to date -Continue vancomycin -Current plan for discharge with 6 weeks of IV vancomycin dosed with dialysis MRSA bacteremia -Echocardiogram was unremarkable -Repeat blood cultures were no growth to date at 48 hours -Current plan for discharge is 6 weeks of IV vancomycin dosed with dialysis Leukocytosis -Persistent but slowly trending down -Repeat blood cultures are negative -ID is following -repeat CBC in the a.m. Chronic anemia secondary to end-stage renal disease -Hemoglobin between 7 and 8 at baseline -Hemoglobin remained stable -Repeat CBC in a.m. End-stage renal disease-HD dependent -Nephrology is following -HD T/T/S -Continue renal diet DM-2 -Continue subcu insulin 10 units twice daily -Fasting blood sugar this morning 165 -Hemoglobin A1c on 07/16/2024 was 6.0 -Continue prandial insulin as ordered -Continue SSI -Accu-Cheks as ordered History of peripheral vascular disease -Continue aspirin and Plavix Chronic HFpEF -Remains compensated -Continue daily weights -Continue I's and O's -Continue home torsemide Obesity -BMI is 31.8 -Recommend weight loss -Complicates treatment, prognosis, outcomes DVT prophylaxis -Continue heparin 3 times daily CODE STATUS Full code Charges/Coding Visit Charges Inpatient E&M: 61525 Subs Hosp L1
[2024-07-19] MEDS: Clopidogrel Bisulfate 75 MG Tablet PO (21:13)
[2024-07-19] MEDS: 0.9% Saline Lock 10 ML Syringe IV (21:20)
[2024-07-19 21:59] LABS: Bedside Glucose 135 mg/dL (74-106)
[2024-07-19] MEDS: Acetaminophen 325 MG Tablet 650 MG PO (23:09)
[2024-07-19] MEDS: oxyCODONE 5 MG Tablet 2.5 MG PO (23:09)
[2024-07-19 23:38] LABS: Anion Gap 17 (5-15); BUN 80 mg/dL (4-19); BUN/Creat Ratio 14.3 RATIO (10-20); Calcium 8.7 mg/dL (7.6-11.0); Carbon Dioxide 19.8 mmol/L (22.0-29.0); Chloride 95 mmol/L (96-108); EST Glomerular Filtration Rate 9 (>60); Estimated Creatinine Clearance 10.06 ml/min; Glucose 153 mg/dL (70-99); Potassium 5.9 mmol/L (3.3-5.1); Sodium Level 131 mmol/L (133-145)
[2024-07-20 01:55] VITALS: BP 125/51; PULSE 59; RESP 16; TEMP 36.8; O2SAT 96
[2024-07-20 05:46] VITALS: BMI 31.8
[2024-07-20] MEDS: Heparin Injection (Vial) 5,000 UNIT/ML VIAL 5000 UNIT SC ×3 (05:50→20:43)
[2024-07-20 08:00] VITALS: PULSE 80
[2024-07-20 08:13] VITALS: BP 118/36; PULSE 58; RESP 16; TEMP 37.1; O2SAT 95
[2024-07-20 08:27] LABS: Bedside Glucose 156 mg/dL (74-106)
[2024-07-20 08:35] LABS: Absolute Lymphocyte Count 1.89 X10^3/uL (0.83-4.51); Absolute Neutrophil Count 9.3 X10^3/uL (2.0-7.7); Basophil# 0.05 X10^3/uL; Basophil% 0.4 % (0-1); Eosinophil# 0.21 X10^3/uL; Eosinophils% 1.7 % (0-5); Hematocrit 25.2 % (40-54); Hemoglobin 7.6 g/dL (13.0-16.5); Lymphocyte # 1.89 X10^3/ul (0.83-4.51); Lymphocyte % 14.9 % (19-41); Mean Corp Hgb Conc 30.2 g/dL (32-36); Mean Corpuscular Hgb 28.1 pg (27.0-32.0); Mean Corpuscular Volume 93.3 fL (80-94); Mean Platelet Vol. 10.4 fl (6.2-12.0); Monocyte# 0.96 X10^3/uL; Monocyte% 7.6 % (0-10); NRBC Flagged by Analyzer 0 % (0-5); Neutrophil # 9.25 X10^3/uL (2.7-7.7); Neutrophil % 73.1 % (47-70); Platelet Count 438 K/mm3 (150-450); RBC Distribution Width CV 17.6 % (11.6-14.6); RBC Distribution Width SD 60.7 fl (35.1-43.9); White Blood Count 12.7 K/mm3 (4.4-11.0)
[2024-07-20] MEDS: Insulin Lispro 100 UNIT/ML INSULN.PEN SC ×2 (08:49→12:53)
[2024-07-20] MEDS: Insulin Lispro 100 UNIT/ML INSULN.PEN 7 UNIT SC ×3 (08:50→16:54)
[2024-07-20] MEDS: Menthol/Lanolin/Calamine/Znox 113 GM Tube 1 APPLIC TOPICAL ×2 (08:52→20:42)
[2024-07-20] MEDS: Aspirin E.C. 81 MG Tablet PO (08:52)
[2024-07-20] MEDS: Torsemide 100 MG Tablet PO (08:53)
[2024-07-20] MEDS: Insulin Glargine-YFGN 100 UNIT/ML Pen 10 UNIT SC (08:54)
[2024-07-20] MEDS: Juven (unflavored) Packet 1 PACKET PO ×2 (08:55→20:44)
--- NOTE | 2024-07-20 10:19 | CASEMGMT ---
ISABEL CHENG spoke with pt son and gave details regarding IV atb at dialysis. He denies further questions at this time.
[2024-07-20] MEDS: DAKIN'S SOL HALF STRENGTH (=0.25%) TOPICAL (10:30)
[2024-07-20 11:25] LABS: Anion Gap 12 (5-15); BUN 68 mg/dL (4-19); BUN/Creat Ratio 16.1 RATIO (10-20); Calcium 8.7 mg/dL (7.6-11.0); Chloride 97 mmol/L (96-108); Creatinine, Serum 4.24 mg/dL (0.70-1.20); EST Glomerular Filtration Rate 13 (>60); Estimated Creatinine Clearance 13.28 ml/min; Glucose 153 mg/dL (70-99); Potassium 5.5 mmol/L (3.3-5.1); Sodium Level 131 mmol/L (133-145)
--- NOTE | 2024-07-20 11:34 | NURSING ---
meteorologist in charge in room to change right foot dressing-spoke w/pt and son-in- law at length about probable need for amputation of foot (minimally), pt and son-in -law voiced understanding
[2024-07-20 11:37] LABS: Bedside Glucose 159 mg/dL (74-106)
[2024-07-20 13:07] VITALS: BP 146/55; PULSE 57; RESP 18; TEMP 36.7; O2SAT 99
--- NOTE | 2024-07-20 13:14 | NURSING ---
pt turned to back, hob up 30, attempt to off load right heel with pillow and pt refused
--- NOTE | 2024-07-20 14:14 | DS.PCM_ITS ---
Providers Date of Admission: 07/13/24 Date of Discharge: 07/20/24 Primary Care Physician: Dr. Nando Wiggins MD Consultations 07/13/24 18:39 Consult: Nephrology Routine Consulting Provider: Manuel lAva Reason for Consult: ESRD on HD, due for hd 07/14 EMERGENT Consult: No MD Notified: Yes Date Notified: 07/13/24 Time Notified: 21:50 Method of Notification: Answering Service Consult: Onc/Wound/slat basket top maker Routine Comment: Reason for Consult:: RLE foot wound Consult: Podiatry Routine Consulting Provider: Josef Garcia Reason for Consult: r foot ?infection EMERGENT Consult: No Notified: Yes Date Notified: 07/13/24 Time Notified: 17:58 Method of Notification: ED Physician Initiated 07/14/24 14:11 Consult: Infectious Disease Routine Consulting Provider: Randal Shore Reason for Consult: MRSA bacteremia, right foot diabetic ulcer EMERGENT Consult: No MD Notified: Yes Date Notified: 07/14/24 Time Notified: 14:11 Method of Notification: Text Reason For Visit: CONCERN FOR R FOOT INFECTION Diagnosis Discharge Diagnosis (1) Cutaneous abscess of right foot: Status: Acute Code(s): L02.611 - Cutaneous abscess of right foot (2) Osteomyelitis of right foot: Status: Acute Code(s): M86.9 - Osteomyelitis, unspecified Qualifiers: Osteomyelitis type: other chronic Qualified Code(s): M86.671 - Other chronic osteomyelitis, right ankle and foot (3) MRSA bacteremia: Status: Acute Code(s): R78.81 - Bacteremia; B95.62 - Methicillin resistant Staphylococcus aureus infection as the cause of diseases classified elsewhere Medications at Discharge Home Medications aspirin 81 mg tablet,delayed release (Adult Aspirin Regimen) 81 mg PO DAILY [facility] 07/01/20 torsemide 100 mg tablet 100 mg PO MOWEFR water pill 04/14/24 insulin glargine 100 unit/mL (3 mL) subcutaneous pen 20 unit (0.2 mL) subcut DINNER diabetes 30 days #0 mL 04/24/24 insulin lispro 100 unit/mL subcutaneous pen (Humalog KwikPen (U-100) Insulin) See Protocol subcut ACHS dm 05/04/24 arginine 7 gram-glutamine 7 gram-calcium HMB 1.5 gram oral powder pack (Dustin) 1 ea PO BID 05/22/24 nystatin 100,000 unit/gram topical cream 1 applic topical DAILY 05/22/24 nut.tx.gluc.intol,lac-free,soy (Glucerna oral liquid) 240 ml PO DAILY 06/04/24 sennosides 8.6 mg-docusate sodium 50 mg tablet (Stimulant Laxative Plus) 1 tab- cap PO BID PRN PRN Constipation 06/04/24 clopidogrel 75 mg tablet 75 mg PO QHS 07/02/24 acetaminophen 325 mg tablet 650 mg PO Q8H PRN PRN Pain 1-10 Or Fever >100.7 07/13/24 cholecalciferol (vitamin D3) 125 mcg (5,000 unit) capsule 125 mcg PO DAILY 07/13/24 insulin lispro 100 unit/mL subcutaneous pen 10 unit subcut TID 07/13/24 vancomycin 750 mg intravenous solution 750 mg IV .see below 38 days #16 ea 07/19/24 albuterol sulfate 2.5 mg/3 mL (0.083 %) solution for nebulization 2.5 mg (3 mL) inhalation Q2H PRN PRN SOB &/OR WHEEZING #0 mL 07/20/24 benzocaine 15 mg-menthol 3.6 mg lozenges (Sore Throat (benzocaine with menthol)) 2 mariaa mucous membrane Q2H PRN PRN sore throat #0 ea 07/20/24 heparin (porcine) 5,000 unit/mL injection solution 5,000 unit subcut Q8 #0 mL 07/20/24 menthol 0.44 %-zinc oxide 20.6 % topical ointment (Calmoseptine) 1 applic topical BID #0 grams 07/20/24 oxycodone 5 mg tablet 2.5 mg (1/2 x 5 mg) PO Q4H PRN PRN Pain Score 4-10 1 day #6 tabs 07/20/24 sodium hypochlorite 0.25 % solution (HySept) See Protocol topical DAILY #0 mL 07/20/24 Hospital Course Operations - (Incision and drainage, right foot, Incision of bone cortex, right foot) Procedures 2-D Echocardiogram, EKG and - (Vascular studies lower extremity/foot x-ray/chest x-ray) Summary of Care Provided Minutes Spent on Discharge: 38 Hospital Course: Patient is an 89-year-old white male who presents emergency department [facility] on 07/13/2024 with concern of a right foot infection. Patient has known peripheral arterial disease and has end-stage renal disease on hemodialysis. His peripheral arterial disease led to ischemic toes which resulted in amputation of the great toe in April. In May he required amputation of the rest of his toes and had been in [facility] with a wound VAC since discharge. Wound VAC has been getting changed 3 times weekly. Podiatry debridement has been performed weekly with the last one doing 2 days prior to presentation. Nurse practitioner at the nursing facility was concerned about the appearance of the wound so he was sent to the emergency department. Vital signs on presentation were unremarkable. His CBC showed a markedly elevated white count at 19.9 and his CRP was 301. Foot x-ray was performed and showed soft tissue swelling with a small amount of air in the soft tissues as well as a lucency visualized in the bony structures suggestive of possible osteopenia. Podiatry was contacted by the emergency department and they recommended admission for IV antibiotics and podiatry consult. He was evaluated by podiatry and a bedside excisional debridement was performed on 07/14/2024 with surgical plan made for I&D later on the hospitalization. Infectious disease and nephrology were consulted while he was hospitalized. An echocardiogram was done preoperatively on 07/16/2024 and showed an EF of 60%, left atrial enlargement that was mild and trivial mitral valve insufficiency. He was taken to the OR on 07/16/2024 at which time he had Incision and drainage, right foot and incision of bone cortex, right foot. Postoperative weightbearing status was partial weightbearing to the heel with transfers to the right lower extremity and full weightbearing to left lower extremity. He was maintained on antibiotics with vancomycin and meropenem and Betadine soaked gauze were ordered for his dressing changes. Culture showed MRSA and plan at the time of discharge with 6 weeks of IV antibiotics with vancomycin dosed with dialysis. He also was found to MRSA bacteremia. Echocardiogram was unremarkable and repeat cultures were obtained with no growth to date on first set. Clinically he did well and was able to return back to the assisted facility on 07/20/2024 in stable condition. He is to follow-up with podiatry at the wound center and infectious disease in 2 weeks. He will continue on dialysis as previous. Discharge diagnoses: Right foot infection (cellulitis/osteomyelitis) secondary to MRSA MRSA bacteremia Leukocytosis Chronic anemia secondary to end-stage renal disease End-stage renal disease DM-2 History of peripheral vascular disease Chronic HFpEF Obesity Physical Exam Const alert, oriented x3, no apparent distress and well nourished; Negative for average body habitus or healthy appearing Constitutional Narrative: Obese, elderly, white male, lying in bed, appears comfortable, does not appear toxic, dozing off in bed but awakens easily General Appearance: cooperative, comfortable, well kempt and well developed Exam Limitations: no limitations Nutritional Appearance: obese HEENT normocephalic, head/scalp atraumatic and moist oral mucous membranes HEENT Narrative: Dentition is poor, Mallampati is 2-3, no thrush Eyes EOMs intact bilaterally; Negative for conjunctivae normal Eyes Narrative: Conjunctival pallor bilaterally, no scleral icterus Neck supple Neck Narrative: Trachea midline Resp normal respiratory effort, no retractions, no use of accessory muscles and clear to auscultation bilaterally Resp Narrative: Diminished but clear Auscultation: Negative for rales, rhonchi or wheezes Cardio regular rate, regular rhythm, S1 normal heart sound, S2 normal heart sound, no murmurs, no rub, no gallops and no clicks GI normal to inspection, nondistended, normoactive bowel sounds, soft to palpation and non-tender Extremity Extremity Narrative: Right lower extremity with postoperative dressing in place, no cyanosis or clubbing Skin skin turgor normal and no jaundice Skin Narrative: Left upper extremity fistula in place with positive bruit and thrill, right lower extremity postoperative dressing in place Neuro oriented x3 and moves all extremities Neuro Narrative: Patient sleeping Speech: speech normal Psych affect normal Psych Narrative: Unable to assess as patient was sleeping Weight / BMI Weight Weight: 92.1 kg Body Mass Index (BMI) 31.8 ABG / Lab / Microbiology Data 07/20/24 08:14 07/20/24 07:20 Laboratory: Laboratory Results - last 24 hr 07/18/24 07:09: Sodium 133, Potassium 5.0, Chloride Direct 97, Carbon Dioxide 22.7, Anion Gap 13, BUN 63 H, Creatinine 4.6 H, Estim Creat Clear Calc 12.41, E st GFR (MDRD) Non-Af 12 L, BUN/Creatinine Ratio 13.7, Glucose 130 H, Calcium 8.9 07/19/24 06:13: Sodium Cancelled 07/19/24 06:13: Sodium 131 L, Potassium Cancelled 07/19/24 06:13: Potassium 5.9 H, Chloride Cancelled, Chloride Direct 95 L, Carbon Dioxide Cancelled 07/19/24 06:13: Carbon Dioxide 19.8 L, Anion Gap Cancelled 07/19/24 06:13: Anion Gap 17 H, BUN Cancelled 07/19/24 06:13: BUN 80 H, Creatinine Cancelled 07/19/24 06:13: Creatinine 5.60 H, Estim Creat Clear Calc Cancelled 07/19/24 06:13: Estim Creat Clear Calc 10.06, Est GFR (MDRD) Af Amer Cancelled, Est GFR (MDRD) Non-Af Cancelled 07/19/24 06:13: Est GFR (MDRD) Non-Af 9 L, BUN/Creatinine Ratio Cancelled 07/19/24 06:13: BUN/Creatinine Ratio 14.3, Glucose Cancelled 07/19/24 06:13: Glucose 153 H, Calcium Cancelled 07/19/24 06:13: Calcium 8.7 07/19/24 16:03: POC Glucose 227 H 07/19/24 21:18: POC Glucose 135 H 07/20/24 07:20: Sodium 131 L, Potassium 5.5 H, Chloride Direct 97, Carbon Dioxide 22.0, Anion Gap 12, BUN 68 H, Creatinine 4.24 H, Estim Creat Clear Calc 13.28, Est GFR (MDRD) Non-Af 13 L, BUN/Creatinine Ratio 16.1, Glucose 153 H, Calcium 8.7 07/20/24 08:09: POC Glucose 156 H 07/20/24 08:14: WBC 12.7 H, RBC 2.70 L, Hgb 7.6 L, Hct 25.2 L, MCV 93.3, MCH 28.1, MCHC 30.2 L, RDW Std Deviation 60.7 H, RDW Coeff of Frances 17.6 H, Plt Count 438, MPV 10.4, Immature Gran % (Auto) 2.300 H, Neut % (Auto) 73.1 H, Lymph % (Auto) 14.9 L, [place] % (Auto) 7.6, Eos % (Auto) 1.7, Baso % (Auto) 0.4, Absolute Neuts (auto) 9.3 H, Absolute Lymphs (auto) 1.89, Nucleated RBC % 0, Sodium Cancelled, Potassium Cancelled, Chloride Cancelled, Carbon Dioxide Cancelled, Anion Gap Cancelled, BUN Cancelled, Creatinine Cancelled, Estim Creat Clear Calc Cancelled, Est GFR (MDRD) Af Amer Cancelled, Est GFR (MDRD) Non-Af Cancelled, BUN/Creatinine Ratio Cancelled, Glucose Cancelled, Calcium Cancelled 07/20/24 11:18: POC Glucose 159 H Microbiology: Microbiology 07/17/24 08:50 Blood Culture (Wb) - Right Hand Blood Culture - Final No growth in 5 days. 07/16/24 16:55 Tissue - Right Foot Gram Stain - Final 07/16/24 16:55 Tissue - Right Foot Wound Culture - Final Meth. resistant Staph. aureus 07/16/24 16:55 Tissue - Right Foot Anaerobic Culture - Final No anaerobic bacteria isolated. 07/16/24 16:55 Tissue - Right Foot Gram Stain - Final 07/16/24 16:55 Tissue - Right Foot Wound Culture - Final Meth. resistant Staph. aureus 07/16/24 16:55 Tissue - Right Foot Anaerobic Culture - Final No anaerobic bacteria isolated. 07/16/24 08:32 Blood Culture (Wb) - Anticubital Right Blood Culture - Final No growth in 5 days. 07/16/24 16:55 Tissue - Right Foot Gram Stain - Final 07/16/24 16:55 Tissue - Right Foot Tissue Culture - Final Meth. resistant Staph. aureus 07/16/24 16:55 Tissue - Right Foot Anaerobic Culture - Preliminary 07/13/24 16:24 Wound - Right Foot Gram Stain - Final 07/13/24 16:24 Wound - Right Foot Wound Culture - Final Meth. resistant Staph. aureus 07/13/24 16:24 Wound - Right Foot Anaerobic Culture - Final Clostridium perfringens 07/13/24 16:38 Blood Culture (Wb) - Right Hand Blood Culture - Final Meth. resistant Staph. aureus 07/13/24 16:38 Blood Culture (Wb) - Arm Right Bacteria Detection (PCR) - Final Meth. resistant Staph. aureus 07/13/24 16:38 Blood Culture (Wb) - Arm Right Blood Culture - Final Meth. resistant Staph. aureus 07/13/24 15:50 Mucosa - Nose SARS-CoV-2, Influenza & RSV (PCR) - Final Radiography Diagnostic Testing: Radiology Impression Ankle Brachial Index 07/17/24 17:53 Interpretation Summary Right RAN not able to be obtained due to non-compressible vessels. Doppler/PVR waveforms of the right ankle mildly diminished at rest. Left RAN not able to be obtained due to non-compressible vessels. TBI and Doppler/PVR waveforms of the left ankle mildly diminished at rest. Ordering Physician: Jayla Osuna Referring Physician: Nando Wiggins Performed By: Demetra Tong RDCS/RVT D/C Instructions Discharge Diet: Low fat / Low cholesterol and Renal Diet DC O2, CPAP, BIPAP Needs Home O2 Discharge instructions: No Meaningful Use Info Meaningful Use Meaningful Use Diagnoses (Choose all that apply): None applicable Ischemic Stroke Statin Dosing Therapy Reference: STATIN DOSE THERAPY REFERENCE: * Patients > 75 years receive moderate or high dose statin therapy. * Patients 75 years or YOUNGER should receive HIGH intensity statin dose unless contraindicated. You will be required to document reason for non-treatment if statin daily dose does not meet guidelines. HIGH DOSE STATIN THERAPY DAILY Atorvastatin > than or = to 40 mg Rosuvastatin > than or = to 20 mg Amlodipine + Atorvastatin > than or = to 2.5/40 mg Ezetimibe + Simvastatin 10/80 mg Simvastatin 80mg Discharge Plan Admission Admit Date/Time: 07/13/24 17:48 Primary Reason for Your Visit: Right foot wound Attending Provider: Margarette Godinez Primary Care Provider: Nando Wiggins Consulting Providers: Jayla Osuna; Juan Antonio Holden; Randal Shore; Manuel Alva; Josef Garcia Instructions Additional Instructions / Restrictions: Right lower extremity wound care: (Dressing changes) 1. Remove all dressing and packing 2. Apply Dakin's soaked 4 x 4's to full-thickness wound to the TMA site as well as plantar wound, right foot 3. Covered with dry sterile dressing 4. Wrap with cast padding 5. Applied 4 inch Alessandro bandages lightly wrapped Wound care center follow-up: Follow-up with Dr. Ruelas next Tuesday at the wound care center. Appointment is made and please make sure that the patient has a ride from the assisted facility. Discharge Orders/Prescriptions Prescriptions: New vancomycin 750 mg recon soln 750 mg IV .see below 38 Days Qty: 16 0RF Rx Instructions: 750mg iv vanc dosed with HD sessions qTu-Pam-Sat. Dx: osteomyelitis. Stop date 08/27/24. Weekly bmp, cbc, vanc trough, and ESR. Fax to [phone]. albuterol sulfate 2.5 mg /3 mL (0.083 %) Solution For Nebulization 2.5 mg inhalation Q2H PRN PRN (Reason: SOB &/OR WHEEZING) Qty: 0 0RF heparin (porcine) 5,000 unit/mL Solution 5,000 unit subcut Q8 Qty: 0 0RF oxycodone 5 mg Tablet 2.5 mg PO Q4H PRN PRN (Reason: Pain Score 4-10) 1 Days Qty: 6 0RF Sore Throat (benzocaine-menth) 15-3.6 mg Lozenge 2 mariaa mucous membrane Q2H PRN PRN (Reason: sore throat) Qty: 0 0RF HySept 0.25 % Solution See Protocol topical DAILY Qty: 0 0RF Protocol: *Topical Application Instructions APPLICATION INSTRUCTIONS: right foot menthol-zinc oxide [Calmoseptine] 0.44-20.6 % Ointment 1 applic topical BID Qty: 0 0RF Protocol: *Topical Application Instructions APPLICATION INSTRUCTIONS: apply to buttocks Continued torsemide 100 mg tablet 100 mg PO MOWEFR Patient Comments: on non-dialysis days insulin glargine 100 unit/mL (3 mL) insulin pen 20 unit SC DINNER 30 Days Qty: 0 0RF Rx Instructions: Hold if glucose less than 130 mg/dl Dustin 7-7-1.5 gram powder in packet 1 ea PO BID nystatin 100,000 unit/gram cream 1 applic topical DAILY clopidogrel 75 mg tablet 75 mg PO QHS Patient Comments: [NO ORIGINAL SIG] cholecalciferol (vitamin D3) 125 mcg (5,000 unit) capsule 125 mcg PO DAILY insulin lispro 100 unit/mL insulin pen 10 unit subcut TID Patient Comments: BEFORE MEALS acetaminophen 325 mg Tablet 650 mg PO Q8H PRN PRN (Reason: Pain 1-10 Or Fever >100.7) insulin lispro [Humalog KwikPen Insulin] 100 unit/mL Insulin Pen See Protocol subcut [facility] Protocol: 3. Sliding Scale Insulin Med Dosing Condition: 150-189 mg/dl = 1 unit Condition: 190-229 mg/dl = 2 units Condition: 230-269 mg/dl = 3 units Condition: 270-309 mg/dl = 4 units Condition: 310-349 mg/dl = 5 units Condition: 350-399 mg/dl = 6 units Condition: 400-449 mg/dl = 7 units Condition: Greater than 449 call physician Protocol Text: Suggested for: - Patients on Total Daily Insulin Dose of 37-55 units - Obese, infected, or steroid patients MEDIUM DOSING ALGORITHIM Rx Instructions: 150-189 1 unit,190-229 2 unit, 230-269 3 unit, 270-309 4 unit, 310-349 5 unit, 350-399 6 unit, 400-449 7 unit, 450-500 call physicion Glucerna Liquid 240 ml PO DAILY sennosides-docusate sodium [Stimulant Laxative Plus] 8.6-50 mg Tablet 1 tab-cap PO BID PRN PRN (Reason: Constipation) aspirin [Adult Aspirin Regimen] 81 mg tablet,delayed release (DR/EC) 81 mg PO DAILY Discontinued oxycodone-acetaminophen [Endocet] 2.5-325 mg tablet 1 tab PO Q8H oxycodone 5 mg tablet 2.5 mg PO DAILY PRN (Reason: pain) oxycodone 5 mg tablet 2.5 mg PO Q6H PRN (Reason: pain) insulin lispro [Humalog KwikPen Insulin] 100 unit/mL Insulin Pen 10 unit subcut DAILY Rx Instructions: Hold if glucose less than 130 mg/dl Other Ambulatory Orders: Wound Care Referral (Routine) Timeframe: 20240724 Facility: [facility] - Location: Wound Healing Center Ordered By: Dr. Margarette Godinez Referrals / Follow Up: Nando Wiggins MD [Primary Care Provider] - In 1 Week (After discharge from assisted facility) Josef Garcia DPM [Med Staff - Active Staff] - See Referral Note (Wound Center) Randal Shore MD [Med Staff - Active Staff] - Within 2 Weeks Disposition Disposition (needs filled in before D/C Order can be placed): [facility] Facility Charges/Coding Visit Charges Inpatient E&M: 71837 SNF Disch >30 Min
[2024-07-20 14:22] VITALS: BP 139/56; PULSE 60; RESP 18; TEMP 36.7; O2SAT 99
--- NOTE | 2024-07-20 14:38 | PCM.TXEXTCAR ---
Diet Diet Order/Speech Therapy: 07/16/24 17:37 Diet: Cardiac - Heart Healthy Dietary Modifications:: Cardiac / Heart Healthy Type of Dietary Supplement:: Nepro Diet Comments: 120mL Nepro w/ breakfast and dinner tray Routine Orders/Code Status Suppository Frequency: Daily PRN Routine Lab Work: CBC (1 week) and BMP (1 week) Code Status: Full Code DC O2, CPAP, BIPAP needs Home O2 Discharge instructions: No Wound(s) RT FOOT: Wound Type: nonhealing wound TMA Dressing Change: Dakins moistened gauze right plantar/lateral heel: Wound Type: Neuropathic/Diabetic Foot Ulcer Dressing Change: Dakins moistened gauze coccyx: Wound Type: Pressure Injury Suggestions for Active Care Change Position every (hours): 2 Hours to sit in a chair: 3 Times a day to sit in chair: 2 Therapies Weight Bearing: Non weight bearing Extremity Affected:: Right Lower Physical Therapy: Eval and Treat Occupational Therapy: Eval and Treat Problem/Diagnosis (1) Cutaneous abscess of right foot: Status: Acute Code(s): L02.611 - Cutaneous abscess of right foot (2) Osteomyelitis of right foot: Status: Acute Code(s): M86.9 - Osteomyelitis, unspecified (3) MRSA bacteremia: Status: Acute Code(s): R78.81 - Bacteremia; B95.62 - Methicillin resistant Staphylococcus aureus infection as the cause of diseases classified elsewhere Allergies/Procedures Done in Hospital Allergies pioglitazone (From Actos) Allergy (Verified 07/13/24 14:00) fatigue simvastatin (From Zocor) Allergy (Verified 07/13/24 14:00) myalgia sitagliptin (From Januvia) Allergy (Verified 07/13/24 14:00) unknown Type of Care/Length of Stay Estimated LOS: Convalescent Care Less Than 30 days Type of Care Needed: Skilled Rehab Potential: Fair Prognosis: Fair Additional Orders/Day of Discharge Day of Discharge: 07/20/24 Dietary and Speech Recommendations Dietitian Recommendations/Changes: Will adjust diet to 1800 calorie, consistent carbohydrate/Renal general. Will continue Dustin BID as ordered to support wound healing. Will add 120mL PO Nepro BID w/ breakfast and dinner trays. Discharge Plan Admission Admit Date/Time: 07/13/24 17:48 Primary Reason for Your Visit: Right foot wound Attending Provider: Margarette Godinez Primary Care Provider: Nando Wiggins Consulting Providers: Jayla Osuna; Juan Antonio Holden; Randal Shore; Manuel Alva; Josef Garcia Instructions Additional Instructions / Restrictions: Right lower extremity wound care: (Dressing changes) 1. Remove all dressing and packing 2. Apply Dakin's soaked 4 x 4's to full-thickness wound to the TMA site as well as plantar wound, right foot 3. Covered with dry sterile dressing 4. Wrap with cast padding 5. Applied 4 inch Alessandro bandages lightly wrapped Wound care center follow-up: Follow-up with Dr. Ruelas next Tuesday at the wound care center. Appointment is made and please make sure that the patient has a ride from the fdc facility. Discharge Orders/Prescriptions Prescriptions: New vancomycin 750 mg recon soln 750 mg IV .see below 38 Days Qty: 16 0RF Rx Instructions: 750mg iv vanc dosed with HD sessions qTu-Pam-Sat. Dx: osteomyelitis. Stop date 08/27/24. Weekly bmp, cbc, vanc trough, and ESR. Fax to [phone]. albuterol sulfate 2.5 mg /3 mL (0.083 %) Solution For Nebulization 2.5 mg inhalation Q2H PRN PRN (Reason: SOB &/OR WHEEZING) Qty: 0 0RF heparin (porcine) 5,000 unit/mL Solution 5,000 unit subcut Q8 Qty: 0 0RF oxycodone 5 mg Tablet 2.5 mg PO Q4H PRN PRN (Reason: Pain Score 4-10) 1 Days Qty: 6 0RF Sore Throat (benzocaine-menth) 15-3.6 mg Lozenge 2 mariaa mucous membrane Q2H PRN PRN (Reason: sore throat) Qty: 0 0RF HySept 0.25 % Solution See Protocol topical DAILY Qty: 0 0RF Protocol: *Topical Application Instructions APPLICATION INSTRUCTIONS: right foot menthol-zinc oxide [Calmoseptine] 0.44-20.6 % Ointment 1 applic topical BID Qty: 0 0RF Protocol: *Topical Application Instructions APPLICATION INSTRUCTIONS: apply to buttocks Continued torsemide 100 mg tablet 100 mg PO MOWEFR Patient Comments: on non-dialysis days insulin glargine 100 unit/mL (3 mL) insulin pen 20 unit SC DINNER 30 Days Qty: 0 0RF Rx Instructions: Hold if glucose less than 130 mg/dl Dustin 7-7-1.5 gram powder in packet 1 ea PO BID nystatin 100,000 unit/gram cream 1 applic topical DAILY clopidogrel 75 mg tablet 75 mg PO QHS Patient Comments: [NO ORIGINAL SIG] cholecalciferol (vitamin D3) 125 mcg (5,000 unit) capsule 125 mcg PO DAILY insulin lispro 100 unit/mL insulin pen 10 unit subcut TID Patient Comments: BEFORE MEALS acetaminophen 325 mg Tablet 650 mg PO Q8H PRN PRN (Reason: Pain 1-10 Or Fever >100.7) insulin lispro [Humalog KwikPen Insulin] 100 unit/mL Insulin Pen See Protocol subcut ACHS Protocol: 3. Sliding Scale Insulin Med Dosing Condition: 150-189 mg/dl = 1 unit Condition: 190-229 mg/dl = 2 units Condition: 230-269 mg/dl = 3 units Condition: 270-309 mg/dl = 4 units Condition: 310-349 mg/dl = 5 units Condition: 350-399 mg/dl = 6 units Condition: 400-449 mg/dl = 7 units Condition: Greater than 449 call physician Protocol Text: Suggested for: - Patients on Total Daily Insulin Dose of 37-55 units - Obese, infected, or steroid patients MEDIUM DOSING ALGORITHIM Rx Instructions: 150-189 1 unit,190-229 2 unit, 230-269 3 unit, 270-309 4 unit, 310-349 5 unit, 350-399 6 unit, 400-449 7 unit, 450-500 call physicion Glucerna Liquid 240 ml PO DAILY sennosides-docusate sodium [Stimulant Laxative Plus] 8.6-50 mg Tablet 1 tab-cap PO BID PRN PRN (Reason: Constipation) aspirin [Adult Aspirin Regimen] 81 mg tablet,delayed release (DR/EC) 81 mg PO DAILY Discontinued oxycodone-acetaminophen [Endocet] 2.5-325 mg tablet 1 tab PO Q8H oxycodone 5 mg tablet 2.5 mg PO DAILY PRN (Reason: pain) oxycodone 5 mg tablet 2.5 mg PO Q6H PRN (Reason: pain) insulin lispro [Humalog KwikPen Insulin] 100 unit/mL Insulin Pen 10 unit subcut DAILY Rx Instructions: Hold if glucose less than 130 mg/dl Other Ambulatory Orders: Wound Care Referral (Routine) Timeframe: 20240724 Facility: [facility] - Location: [facility] Ordered By: Dr. Margarette Godinez Referrals / Follow Up: Nando Wiggins MD [Primary Care Provider] - In 1 Week (After discharge from fdc facility) Josef Garcia DPM [Med Staff - Active Staff] - See Referral Note (Wound Center) Randal Shore MD [Med Staff - Active Staff] - Within 2 Weeks Disposition Disposition (needs filled in before D/C Order can be placed): [facility] (2) Osteomyelitis of right foot Qualifiers: Osteomyelitis type: other chronic Qualified Code(s): M86.671 - Other chronic osteomyelitis, right ankle and foot
--- NOTE | 2024-07-20 15:14 | CASEMGMT ---
Social Work Precert has been obtained for pt to return to [facility]. Physician notified and pt is ready for discharge today. DC surgical first assistant updated and to complete dc. Disposition: Return to [facility], skilled level of care TERRI Zapata
--- NOTE | 2024-07-20 15:35 | PCM.PN.REN ---
Subjective Subjective no new events Objective Data Objective Data Vital Signs: Vital Signs Temp Pulse Resp BP Pulse Ox O2 Del Method O2 Flow Rate 98.1 F 57 L 18 146/55 H 99 Room Air 2 07/20/24 13:07 07/20/24 13:07 07/20/24 13:07 07/20/24 13:07 07/20/24 13:07 07/20/24 13:07 07/16/24 15:18 Oxygen Flow Rate (L/min) 2 Oxygen Delivery Method Room Air Weight: 92.1 kg Body Mass Index (BMI) 31.8 Intake & Output: Intake and Output for Last 24 Hours 07/18/24 07/19/24 07/20/24 23:59 23:59 23:59 Intake Total 673.25 / 673.25 853.25 / 853.25 650 / 650 Output Total 2500 / 2500 Balance 673.25 / 673.25 -1646.75 / -1646.75 650 / 650 Lab / Micro Data 07/20/24 08:14 07/20/24 07:20 Labs: Laboratory Results - last 24 hr 07/19/24 06:13: Sodium Cancelled 07/19/24 06:13: Sodium 131 L, Potassium Cancelled 07/19/24 06:13: Potassium 5.9 H, Chloride Cancelled, Chloride Direct 95 L, Carbon Dioxide Cancelled 07/19/24 06:13: Carbon Dioxide 19.8 L, Anion Gap Cancelled 07/19/24 06:13: Anion Gap 17 H, BUN Cancelled 07/19/24 06:13: BUN 80 H, Creatinine Cancelled 07/19/24 06:13: Creatinine 5.60 H, Estim Creat Clear Calc Cancelled 07/19/24 06:13: Estim Creat Clear Calc 10.06, Est GFR (MDRD) Af Amer Cancelled, Est GFR (MDRD) Non-Af Cancelled 07/19/24 06:13: Est GFR (MDRD) Non-Af 9 L, BUN/Creatinine Ratio Cancelled 07/19/24 06:13: BUN/Creatinine Ratio 14.3, Glucose Cancelled 07/19/24 06:13: Glucose 153 H, Calcium Cancelled 07/19/24 06:13: Calcium 8.7 07/19/24 16:03: POC Glucose 227 H 07/19/24 21:18: POC Glucose 135 H 07/20/24 07:20: Sodium 131 L, Potassium 5.5 H, Chloride Direct 97, Carbon Dioxide 22.0, Anion Gap 12, BUN 68 H, Creatinine 4.24 H, Estim Creat Clear Calc 13.28, Est GFR (MDRD) Non-Af 13 L, BUN/Creatinine Ratio 16.1, Glucose 153 H, Calcium 8.7 07/20/24 08:09: POC Glucose 156 H 07/20/24 08:14: WBC 12.7 H, RBC 2.70 L, Hgb 7.6 L, Hct 25.2 L, MCV 93.3, MCH 28.1, MCHC 30.2 L, RDW Std Deviation 60.7 H, RDW Coeff of Frances 17.6 H, Plt Count 438, MPV 10.4, Immature Gran % (Auto) 2.300 H, Neut % (Auto) 73.1 H, Lymph % (Auto) 14.9 L, [place] % (Auto) 7.6, Eos % (Auto) 1.7, Baso % (Auto) 0.4, Absolute Neuts (auto) 9.3 H, Absolute Lymphs (auto) 1.89, Nucleated RBC % 0, Sodium Cancelled, Potassium Cancelled, Chloride Cancelled, Carbon Dioxide Cancelled, Anion Gap Cancelled, BUN Cancelled, Creatinine Cancelled, Estim Creat Clear Calc Cancelled, Est GFR (MDRD) Af Amer Cancelled, Est GFR (MDRD) Non-Af Cancelled, BUN/Creatinine Ratio Cancelled, Glucose Cancelled, Calcium Cancelled 07/20/24 11:18: POC Glucose 159 H Micro: Microbiology 07/16/24 16:55 Tissue - Right Foot Gram Stain - Final 07/16/24 16:55 Tissue - Right Foot Tissue Culture - Final Meth. resistant Staph. aureus 07/16/24 16:55 Tissue - Right Foot Anaerobic Culture - Preliminary 07/16/24 16:55 Tissue - Right Foot Gram Stain - Final 07/16/24 16:55 Tissue - Right Foot Wound Culture - Final Meth. resistant Staph. aureus 07/16/24 16:55 Tissue - Right Foot Anaerobic Culture - Preliminary 07/16/24 16:55 Tissue - Right Foot Gram Stain - Final 07/16/24 16:55 Tissue - Right Foot Wound Culture - Final Meth. resistant Staph. aureus 07/16/24 16:55 Tissue - Right Foot Anaerobic Culture - Preliminary 07/17/24 08:50 Blood Culture (Wb) - Right Hand Blood Culture - Preliminary No growth in 48 hours. 07/13/24 16:24 Wound - Right Foot Gram Stain - Final 07/13/24 16:24 Wound - Right Foot Wound Culture - Final Meth. resistant Staph. aureus 07/13/24 16:24 Wound - Right Foot Anaerobic Culture - Final Clostridium perfringens 07/16/24 08:32 Blood Culture (Wb) - Anticubital Right Blood Culture - Preliminary No growth in 48 hours. 07/13/24 16:38 Blood Culture (Wb) - Right Hand Blood Culture - Final Meth. resistant Staph. aureus 07/13/24 16:38 Blood Culture (Wb) - Arm Right Bacteria Detection (PCR) - Final Meth. resistant Staph. aureus 07/13/24 16:38 Blood Culture (Wb) - Arm Right Blood Culture - Final Meth. resistant Staph. aureus 07/13/24 15:50 Mucosa - Nose SARS-CoV-2, Influenza & RSV (PCR) - Final Physical Exam Narrative Alert awake oriented x 3 no obvious distress no pallor no icterus no JVD s1s2 no murmurs lungs clear abdomen soft no organomegaly no edema no cyanosis Assessment & Plan Assessment/Plan (1) End stage renal disease: PLAN: On hemodialysis Tuesday, , Tuesday schedule. Foot osteomyelitis with bacteremia. ID on consult. vancomycin with HD. called and spoke to HD unit, confirmed 750 mg as per ID recs
--- NOTE | 2024-07-20 16:07 | CASEMGMT ---
Discharge Planning Discharge orders, signed med list, and transport time sent to [facility]. Physicians will transport pt by wheelchair at 7:30p. Nursing, SW, pt, and his ARNOL (Jey) updated. Alanna Gaston DC Planning Asst.
[2024-07-20 17:12] LABS: Bedside Glucose 98 mg/dL (74-106)
--- NOTE | 2024-07-20 17:45 | NURSING ---
report called to Katarina @ [facility]
[2024-07-20 20:26] VITALS: BP 143/47; PULSE 56; RESP 18; TEMP 36.7; O2SAT 97
[2024-07-20] MEDS: Clopidogrel Bisulfate 75 MG Tablet PO (20:45)
[2024-07-20 21:10] LABS: Bedside Glucose 91 mg/dL (74-106)
== END 2024-07-20 21:15 | disposition skilled nursing facility (03) | DRG 628 ==
LOC: ED 16:13 → MS3 17:45
PROVIDERS: Anesthesiology; Internal Medicine; Podiatrist Foot & Ankle Surgery; Admitting Provider Internal Medicine; Emergency Provider Emergency Medicine; PCP Internal Medicine; Referring Provider Emergency Medicine; Visit Provider Internal Medicine
PROC: 0QBN0ZX Excision of Right Metatarsal, Open Approach, Diagnostic (ICD-10-PCS; principal; 2024-07-16 10:10)
DX: E11.69 Type 2 diabetes mellitus with other specified complication (principal); A41.02 Sepsis due to Methicillin resistant Staphylococcus aureus; I13.2 Hypertensive heart and chronic kidney disease with heart failure and with stage 5 chronic kidney disease, or end stage renal disease; I96 Gangrene, not elsewhere classified; L97.414 Non-pressure chronic ulcer of right heel and midfoot with necrosis of bone; M86.671 Other chronic osteomyelitis, right ankle and foot; T87.43 Infection of amputation stump, right lower extremity; I50.32 Chronic diastolic (congestive) heart failure; L97.412 Non-pressure chronic ulcer of right heel and midfoot with fat layer exposed; L03.115 Cellulitis of right lower limb; L02.611 Cutaneous abscess of right foot; L89.610 Pressure ulcer of right heel, unstageable; L89.151 Pressure ulcer of sacral region, stage 1; D63.1 Anemia in chronic kidney disease; I44.1 Atrioventricular block, second degree; E11.51 Type 2 diabetes mellitus with diabetic peripheral angiopathy without gangrene; I70.209 Unspecified atherosclerosis of native arteries of extremities, unspecified extremity; I34.0 Nonrheumatic mitral (valve) insufficiency; E66.9 Obesity, unspecified; I48.0 Paroxysmal atrial fibrillation; N18.6 End stage renal disease; E11.628 Type 2 diabetes mellitus with other skin complications; E11.22 Type 2 diabetes mellitus with diabetic chronic kidney disease; Z99.2 Dependence on renal dialysis; E11.42 Type 2 diabetes mellitus with diabetic polyneuropathy; Z79.4 Long term (current) use of insulin; E11.65 Type 2 diabetes mellitus with hyperglycemia; E78.5 Hyperlipidemia, unspecified; E11.621 Type 2 diabetes mellitus with foot ulcer; M62.561 Muscle wasting and atrophy, not elsewhere classified, right lower leg; S91.301A Unspecified open wound, right foot, initial encounter; I44.7 Left bundle-branch block, unspecified; D72.829 Elevated white blood cell count, unspecified; T87.89 Other complications of amputation stump; Z79.2 Long term (current) use of antibiotics; Z79.82 Long term (current) use of aspirin; Z68.32 Body mass index [BMI] 32.0-32.9, adult; Z79.02 Long term (current) use of antithrombotics/antiplatelets; Z79.01 Long term (current) use of anticoagulants; M85.871 Other specified disorders of bone density and structure, right ankle and foot; Z88.8 Allergy status to other drugs, medicaments and biological substances; Z98.890 Other specified postprocedural states; X58.XXXA Exposure to other specified factors, initial encounter; Y69 Unspecified misadventure during surgical and medical care; Y83.5 Amputation of limb(s) as the cause of abnormal reaction of the patient, or of later complication, without mention of misadventure at the time of the procedure
CPT/HCPCS: 11044; 11047; 36415; 71046; 73620; 73630; 76000; 80048; 80202; 82962; 83036; 85025; 85610; 85652; 85730; 86140; 87040; 87070; 87075; 87077; 87149; 87186; 87205; 87631; 90937; 93005; 93306; 93922; 93925; 97110; 97162; 97166; 97530; 97535; 99285; J2185; A4216; G0257; J2405

== ENCOUNTER 2024-08-01 12:45 | Emergency (ER) | payer MEDICARE, SELFPAY ==
[2024-08-01] VITALS (7 sets, daily range): BP systolic 113–159; BP diastolic 42–56; PULSE 43–47; RESP 15–19; TEMP 36–36.7; O2SAT 95–99
--- NOTE | 2024-08-01 13:43 | EDS_ITS ---
HPI History of Present Illness Chief Complaint: Wound Informant: patient and EMS Narrative Narrative: 89[facility]-old male [facility] presenting with wound to the right foot. Patient is status post transmetatarsal amputation of the right foot. He has known diabetes and peripheral artery disease. He also has a history of paroxysmal atrial fibrillation congestive heart failure. He has been seen by podiatry and wound center. He is currently receiving vancomycin. It was recommended that he have a amputation but was reportedly wanting to see [facility] for evaluation. It was reported to me that the patient was sent to the emergency room for possible worsening of the wound. Patient really cannot tell me much in the terms of his care plan of care. He states he does not feel any different. No reported fevers. Reportedly he is receiving subcutaneous heparin. Patient was seen by Dr. Damico on the . 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 ESRD (end stage renal disease) Type 2 diabetes mellitus with foot ulcer Diabetes mellitus with diabetic 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 Pre-op testing Loose, teeth Wears glasses Cancer Dialysis patient Kidney disease Non-smoker Edema Syncope Chronic diastolic (congestive) heart failure (04/18/20) Paroxysmal atrial fibrillation Sinus bradycardia Type 2 diabetes mellitus Hyperkalemia Swelling of both lower extremities HLD (hyperlipidemia) Left bundle-branch block 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 Abnormal electrocardiogram Home Medications ?Medication ?Instructions ?Recorded ?Last Taken ?Type aspirin 81 mg tablet,delayed 81 mg PO DAILY heart heal th 07/01/20 06/05/24 History release (Adult Aspirin Regimen) torsemide 100 mg tablet 100 mg PO MOWEFR water pill 04/14/24 06/04/24 History insulin glargine 100 unit/mL (3 20 unit (0.2 mL) subcu t DINNER 04/24/24 06/05/24 Rx mL) subcutaneous pen diabetes 30 days #0 mL insulin lispro 100 unit/mL See Protocol subcut ACHS dm 05/04/24 Unknown History subcutaneous pen (Humalog KwikPen (U-100) Insulin) arginine 7 gram-glutamine 7 1 ea PO BID 05/22/2406/05 History gram-calcium HMB 1.5 gram oral powder pack (Dustin) nystatin 100,000 unit/gram topical 1 applic topical DA DIAMANTE 05/22/24 06/05/24 History cream nut.tx.gluc.intol,lac-free,soy 240 ml PO DAILY 5 06/05/24 History (Glucerna oral liquid) sennosides 8.6 mg-docusate sodium 1 tab-cap PO BID PRN PRN 06/04/24 06/05/24 History 50 mg tablet (Stimulant Laxative Constipation Plus) clopidogrel 75 mg tablet 75 mg PO QHS 07/02/24 Unknow n History acetaminophen 325 mg tablet 650 mg PO Q8H PRN PRN Pain 1-10 Or 07/13/24 Unknown History Fever >100.7 cholecalciferol (vitamin D3) 125 125 mcg PO DAILY 06/24 06/16 Unknown History mcg (5,000 unit) capsule insulin lispro 100 unit/mL 10 unit subcut TID 07/13/24 Unknown History subcutaneous pen vancomycin 750 mg intravenous 750 mg IV .see below 38 days #16 ea 07/19/24 Unknown Rx solution albuterol sulfate 2.5 mg/3 mL 2.5 mg (3 mL) inhalation Q2H PRN 07/20/24 Unknown Rx (0.083 %) solution for nebulization PRN SOB &/OR WHEEZ ING #0 mL benzocaine 15 mg-menthol 3.6 mg 2 mariaa mucous membrane Q2H PRN PRN 07/20/24 Unknown Rx lozenges (Sore Throat (benzocaine sore throat #0 ea with menthol)) heparin (porcine) 5,000 unit/mL 5,000 unit subcut Q8 # 0 mL 07/20/24 Unknown Rx injection solution menthol 0.44 %-zinc oxide 20.6 % 1 applic topical BID #0 grams 07/20/24 Unknown Rx topical ointment (Calmoseptine) oxycodone 5 mg tablet 2.5 mg (1/2 x 5 mg) PO Q4H P RN PRN 07/20/24 Unknown Rx Pain Score 4-10 1 day #6 tabs sodium hypochlorite 0.25 % See Protocol topical DAILY #0 mL 07/20/24 Unknown Rx solution (HySept) Allergy/AdvReac Type Severity Reaction Status Date / Time pioglitazone (From Actos) Allergy fatigue Verified 08/01/24 12:54 simvastatin (From Zocor) Allergy myalgia Verified 08/01/24 12:54 sitagliptin (From Januvia) Allergy unknown Verified 08/01/24 12:54 Family History Mother Hypertension Father Diabetes COPD (chronic obstructive pulmonary disease) Surgical History Hx of foot surgery History of cataract extraction History of ligation of vein History of arteriovenostomy for renal dialysis History of inguinal hernia repair History of appendectomy Social History housing: longterm current occupational status: retired Smoking Status: Never smoker alcohol intake: never substance use type: does not use caffeine: Yes Type: coffee Number of servings: 1 what type of physical activity do you participate in: none seatbelt use: always do you feel safe at home: Yes ROS ROS ED Constitutional Constitutional ED: Denies chills, fever(s) or weight loss Eyes Eyes: Denies change in vision or diplopia ENT ENT ED: Denies ear pain, rhinorrhea or sore throat Cardiovascular Cardiovascular: Denies chest pain, orthopnea, palpitations or racing heartbeat Respiratory/Chest Respiratory/Chest: Denies cough, dyspnea or orthopnea Gastrointestinal Gastrointestinal: Denies abdominal pain, diarrhea, nausea or vomiting Genitourinary Genitourinary ED: Denies dysuria, hematuria or urinary frequency Musculoskeletal Musculoskeletal: Denies arthralgias or myalgias Integumentary Reports other Details: Chronic wound right foot ; Denies abscess or rash Neurologic Neurologic: Denies headache(s) or weakness Psychiatric Psychiatric: Denies anxiety, depression, suicidal ideation or suicidal thoughts Endocrine Endocrinology: Denies polydipsia, polyphagia or polyuria Allergic/Immunologic Allergic/Immunologic ED: Denies mouth swelling, tongue swelling or urticaria EXAM Physical Exam Const Vital Signs: 08/01/24 12:47 08/01/24 13:47 Temperature 96.8 F L Temperature Source Temporal Pulse Rate 46 L Respiratory Rate 15 Blood Pressure 115/42 L Blood Pressure Mean 66 Pulse Ox 97 Oxygen Delivery Method Room Air Positive well nourished and well developed General Appearance ED: well developed and NAD HEENT Reports normocephalic, head/scalp atraumatic and moist mucous membranes Eyes PERRL and EOMs intact bilaterally Neck no lymphadenopathy, supple and no JVD Resp normal respiratory effort and clear to auscultation bilaterally Cardio regular rate, regular rhythm and no murmurs GI normal to inspection, nondistended, normoactive bowel sounds and non-tender Palpation: soft Back/Spine no CVA tenderness and normal ROM Extremity normal to inspection General Extremety ED: Negative for edema General Extremity: Negative for edema Neuro oriented x3 and CN's II-XII intact bilaterally Sensorium / Orientation: alert Motor Exam: strength 5/5 throughout Psych mental status grossly normal Mood & Affect: Negative for depressed or tearful Skin no rashes or lesions noted Skin Narrative: The right foot shows transtarsal amputation. The distal end is open. There is no foul smell. There is no significant erythema or streaking. There is swelling of the legs. MDM MDM MDM Narrative Medical decision making narrative: Differential diagnosis includes acute on chronic osteomyelitis cellulitis sepsis DVT peripheral artery disease Patient clinically appears well. He is without fever. There is no foul smell from the wound or drainage. No significant erythema. My independent interpretation of the plain film shows transmetatarsal amputation some soft ti ssue swelling and probably chronic osteomyelitis. I do not see significant gas formation. I spoke with Dr. Damico remembers the patient. Nursing spoke with the patient's family. We obtained a CBC shows a white count of 8.6 with no left shift. The patient can be discharged back to longterm with follow-up at for further delineation of long-term plan but at this point I do not see a strong need for admission. History & Record Review Discussion w/independent historian: Patient Additional record(s) reviewed:: Prior outpatient record Lab Data Attestation: I reviewed the patient's lab results. Labs: Laboratory Results - last 24 hr 08/01/24 14:48 WBC 8.6 RBC 2.95 L Hgb 8.1 L Hct 27.6 L MCV 93.6 MCH 27.5 MCHC 29.3 L RDW Std Deviation 57.8 H RDW Coeff of Frances 16.9 H Plt Count 290 MPV 10.6 Immature Gran % (Auto) 0.500 Neut % (Auto) 61.7 Lymph % (Auto) 20.9 [place] % (Auto) 12.3 H Eos % (Auto) 3.9 Baso % (Auto) 0.7 Absolute Neuts (auto) 5.3 Absolute Lymphs (auto) 1.79 Nucleated RBC % 0 Radiography Diagnostic Testing: Clinical Impression(s) from Imaging Studies Foot X-Ray 08/01/24 14:20 IMPRESSION: Status post TMA. Soft tissue swelling. Surgical margin shows haziness, best demonstrated on the lateral view. Osteomyelitis can not be excluded. Reading Location: [facility] Management Discussion w/another healthcare provider: Electron Microprobe Operator (Dr. Damico) Discharge Plan Triage Chief Complaint: Wound ED Provider: Des Garcia Dx/Rx/DC Orders Prescriptions: No Action torsemide 100 mg tablet 100 mg PO MOWEFR Patient Comments: on non-dialysis days insulin glargine 100 unit/mL (3 mL) insulin pen 20 unit SC DINNER 30 Days Qty: 0 0RF Rx Instructions: Hold if glucose less than 130 mg/dl Dustin 7-7-1.5 gram powder in packet 1 ea PO BID nystatin 100,000 unit/gram cream 1 applic topical DAILY clopidogrel 75 mg tablet 75 mg PO QHS Patient Comments: [NO ORIGINAL SIG] cholecalciferol (vitamin D3) 125 mcg (5,000 unit) capsule 125 mcg PO DAILY insulin lispro 100 unit/mL insulin pen 10 unit subcut TID Patient Comments: BEFORE MEALS acetaminophen 325 mg Tablet 650 mg PO Q8H PRN PRN (Reason: Pain 1-10 Or Fever >100.7) vancomycin 750 mg recon soln 750 mg IV .see below 38 Days Qty: 16 0RF Rx Instructions: 750mg iv vanc dosed with HD sessions qTu-Pam-Sat. Dx: osteomyelitis. Stop date 08/27/24. Weekly bmp, cbc, vanc trough, and ESR. Fax to [phone]. albuterol sulfate 2.5 mg /3 mL (0.083 %) Solution For Nebulization 2.5 mg inhalation Q2H PRN PRN (Reason: SOB &/OR WHEEZING) Qty: 0 0RF heparin (porcine) 5,000 unit/mL Solution 5,000 unit subcut Q8 Qty: 0 0RF oxycodone 5 mg Tablet 2.5 mg PO Q4H PRN PRN (Reason: Pain Score 4-10) 1 Days Qty: 6 0RF Sore Throat (benzocaine-menth) 15-3.6 mg Lozenge 2 mariaa mucous membrane Q2H PRN PRN (Reason: sore throat) Qty: 0 0RF HySept 0.25 % Solution See Protocol topical DAILY Qty: 0 0RF Protocol: *Topical Application Instructions APPLICATION INSTRUCTIONS: right foot menthol-zinc oxide [Calmoseptine] 0.44-20.6 % Ointment 1 applic topical BID Qty: 0 0RF Protocol: *Topical Application Instructions APPLICATION INSTRUCTIONS: apply to buttocks insulin lispro [Humalog KwikPen Insulin] 100 unit/mL Insulin Pen See Protocol subcut ACHS Protocol: 3. Sliding Scale Insulin Med Dosing Condition: 150-189 mg/dl = 1 unit Condition: 190-229 mg/dl = 2 units Condition: 230-269 mg/dl = 3 units Condition: 270-309 mg/dl = 4 units Condition: 310-349 mg/dl = 5 units Condition: 350-399 mg/dl = 6 units Condition: 400-449 mg/dl = 7 units Condition: Greater than 449 call physician Protocol Text: Suggested for: - Patients on Total Daily Insulin Dose of 37-55 units - Obese, infected, or steroid patients MEDIUM DOSING ALGORITHIM Rx Instructions: 150-189 1 unit,190-229 2 unit, 230-269 3 unit, 270-309 4 unit, 310-349 5 unit, 350-399 6 unit, 400-449 7 unit, 450-500 call physicion Glucerna Liquid 240 ml PO DAILY sennosides-docusate sodium [Stimulant Laxative Plus] 8.6-50 mg Tablet 1 tab-cap PO BID PRN PRN (Reason: Constipation) aspirin [Adult Aspirin Regimen] 81 mg tablet,delayed release (DR/EC) 81 mg PO DAILY Primary Care Provider: Nando Wiggins Referrals: Nando Wiggins MD [Primary Care Provider] - Print Language: Yakut
--- NOTE | 2024-08-01 14:20 | RAD_ITS ---
EXAM: XR Right Foot Complete, 3 or More Views CLINICAL INDICATION: INFECTION TECHNIQUE: Frontal, lateral and oblique views of the right foot. COMPARISON: No relevant prior studies available. FINDINGS: BONES/JOINTS: See below. SOFT TISSUES: Status post TMA. Soft tissue swelling. Surgical margin shows haziness, best demonstrated on the lateral view. Osteomyelitis can not be excluded. RAD/Foot min 3 Views IMPRESSION: Status post TMA. Soft tissue swelling. Surgical margin shows haziness, best d emonstrated on the lateral view. Osteomyelitis can not be excluded. Reading Location[facility]
--- NOTE | 2024-08-01 14:21 | ED.RN ---
ROBERTA DAVILA to call the ER for a report.
[2024-08-01 15:00] LABS: Absolute Lymphocyte Count 1.79 X10^3/uL (0.83-4.51); Absolute Neutrophil Count 5.3 X10^3/uL (2.0-7.7); Basophil# 0.06 X10^3/uL; Basophil% 0.7 % (0-1); Eosinophil# 0.33 X10^3/uL; Eosinophils% 3.9 % (0-5); Hematocrit 27.6 % (40-54); Hemoglobin 8.1 g/dL (13.0-16.5); Lymphocyte # 1.79 X10^3/ul (0.83-4.51); Lymphocyte % 20.9 % (19-41); Mean Corp Hgb Conc 29.3 g/dL (32-36); Mean Corpuscular Hgb 27.5 pg (27.0-32.0); Mean Corpuscular Volume 93.6 fL (80-94); Mean Platelet Vol. 10.6 fl (6.2-12.0); Monocyte# 1.05 X10^3/uL; Monocyte% 12.3 % (0-10); NRBC Flagged by Analyzer 0 % (0-5); Neutrophil % 61.7 % (47-70); Platelet Count 290 K/mm3 (150-450); RBC Distribution Width CV 16.9 % (11.6-14.6); RBC Distribution Width SD 57.8 fl (35.1-43.9); Red Blood Count 2.95 M/mm3 (4.6-6.2); White Blood Count 8.6 K/mm3 (4.4-11.0)
--- NOTE | 2024-08-01 15:24 | ED.RN ---
ATTEMPTED TO CALL REPORT TO [place] W/ NO ANSWER
--- NOTE | 2024-08-01 15:41 | ED.RN ---
ATTEMPTED TO CALL REPORT TO [facility]. NO ANSWER AT THIS TIME.
== END 2024-08-01 19:59 | disposition home or self-care (01) ==
PROVIDERS: Emergency Provider Emergency Medicine; PCP Internal Medicine; Visit Provider Emergency Medicine
DX: Z48.00 Encounter for change or removal of nonsurgical wound dressing (principal); N18.6 End stage renal disease; M86.671 Other chronic osteomyelitis, right ankle and foot; I50.32 Chronic diastolic (congestive) heart failure; E11.51 Type 2 diabetes mellitus with diabetic peripheral angiopathy without gangrene; E11.42 Type 2 diabetes mellitus with diabetic polyneuropathy; E11.22 Type 2 diabetes mellitus with diabetic chronic kidney disease; E11.69 Type 2 diabetes mellitus with other specified complication; Z89.421 Acquired absence of other right toe(s); E78.5 Hyperlipidemia, unspecified; Z98.890 Other specified postprocedural states; M79.89 Other specified soft tissue disorders
CPT/HCPCS: 73630; 85025; 99285; A4216

== ENCOUNTER → 2024-08-13 | Outpatient (REF) | payer MEDICARE, SELFPAY ==
[2024-08-13 09:05] LABS: Absolute Neutrophil Count 5.1 X10^3/uL (2.0-7.7); Basophil# 0.04 X10^3/uL; Basophil% 0.5 % (0-1); Eosinophil# 0.21 X10^3/uL; Eosinophils% 2.6 % (0-5); Hematocrit 28.8 % (40-54); Hemoglobin 8.6 g/dL (13.0-16.5); Lymphocyte % 22.5 % (19-41); Mean Corp Hgb Conc 29.9 g/dL (32-36); Mean Corpuscular Hgb 28.2 pg (27.0-32.0); Mean Corpuscular Volume 94.4 fL (80-94); Mean Platelet Vol. 10.9 fl (6.2-12.0); Monocyte# 0.86 X10^3/uL; Monocyte% 10.7 % (0-10); NRBC Flagged by Analyzer 0 % (0-5); Neutrophil # 5.07 X10^3/uL (2.7-7.7); Neutrophil % 63.3 % (47-70); Platelet Count 265 K/mm3 (150-450); RBC Distribution Width CV 16.8 % (11.6-14.6); RBC Distribution Width SD 57.7 fl (35.1-43.9); Red Blood Count 3.05 M/mm3 (4.6-6.2)
[2024-08-13 23:56] LABS: Vitamin B12 782 pg/mL (180-914); Vitamin D,25 Hydroxy 44.6 ng/mL (30-100)
[2024-08-14 00:14] LABS: AST(SGOT) 18 U/L (<=37); Alanine Aminotransfer ALT/SGPT 8 U/L (<=46); Albumin, Serum 2.8 g/dL (3.4-4.8); Alkaline Phosphatase 56 U/L (40-129); Anion Gap 15 (5-15); BUN 38 mg/dL (4-19); BUN/Creat Ratio 8.8 RATIO (10-20); Bilirubin, Direct < 0.08 mg/dL (0.00-0.30); Carbon Dioxide 25.2 mmol/L (21.0-32.0); Chloride 94 mmol/L (98-108); Creatinine, Serum 4.28 mg/dL (0.70-1.20); EST Glomerular Filtration Rate 13 (>60); Globulin 3.8 g/dL (2.2-4.2); Glucose 96 mg/dL (70-99); Potassium 3.9 mmol/L (3.3-5.1); Protein, Total 6.6 g/dL (5.9-8.4); Sodium Level 134 mmol/L (133-145); Total Bilirubin 0.25 mg/dL (0.00-1.30)
[2024-08-14 20:50] LABS: Hemoglobin A1c 6.1 % (<=5.6)
== END ==
LOC: OLS.WHLEAS 05:00
PROVIDERS: PCP Internal Medicine; Visit Provider Internal Medicine
DX: R41.82 Altered mental status, unspecified (principal); M86.171 Other acute osteomyelitis, right ankle and foot; L03.031 Cellulitis of right toe; M62.561 Muscle wasting and atrophy, not elsewhere classified, right lower leg
CPT/HCPCS: 36415; 80048; 80076; 82306; 82607; 83036; 85025

== ENCOUNTER 2024-08-20 10:30 | Outpatient (RCR) | payer MEDICARE, SELFPAY ==
[2024-07-21 02:32] VITALS: BP 119/45; PULSE 60; RESP 18; TEMP 35.9; BMI 31.9
[2024-07-23 09:39] VITALS: BP 126/42; PULSE 56; RESP 18; TEMP 36.1; BMI 31.9
--- NOTE | 2024-07-23 13:12 | PCM.WC.HP ---
History of Present Illness Date of Service: 07/23/24 Chief Complaint: R 1st digit amputation site, R 2nd toe ulceration History of Wound: Rohit Marvin is an 89-year-old male with complicated past medical history including severe type 2 diabetes that is better controlled now with hemoglobin A1c of 6 as well as peripheral vascular disease status post right lower extremity vascular interventions for nonhealing right foot wounds. 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 He was recently admitted for cellulitis/infection this past week, and missed a referral appointment to a vascular surgeon at to discuss arch flow improvement as his posterior tibial artery stops at the ankle and the peroneal and anterior tibial arteries do not perfuse the location where he needs flow. Patient denies constitutional symptoms. Patient denies pain. Patient has been maintaining nonweightbearing status at his SNF has been compliant with treatment thus far. No other complaints. 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 ESRD (end stage renal disease) Type 2 diabetes mellitus with foot ulcer Diabetes mellitus with diabetic 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 Pre-op testing Loose, teeth Wears glasses Cancer Dialysis patient Kidney disease Non-smoker Edema Syncope Chronic diastolic (congestive) heart failure (04/18/20) Paroxysmal atrial fibrillation Sinus bradycardia Type 2 diabetes mellitus Hyperkalemia Swelling of both lower extremities HLD (hyperlipidemia) Left bundle-branch block 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 Abnormal electrocardiogram Home Medications ?Medication ?Instructions ?Recorded ?Last Taken ?Type aspirin 81 mg tablet,delayed 81 mg PO DAILY heart health 07/01/20 06/05/24 History release (Adult Aspirin Regimen) torsemide 100 mg tablet 100 mg PO MOWEFR water pill 04/14/24 06/04/24 History insulin glargine 100 unit/mL (3 20 unit (0.2 mL) subcut DINNER 04/24/24 06/05/24 Rx mL) subcutaneous pen diabetes 30 days #0 mL insulin lispro 100 unit/mL See Protocol subcut ACHS dm 05/04/24 Unknown History subcutaneous pen (Humalog KwikPen (U-100) Insulin) arginine 7 gram-glutamine 7 1 ea PO BID 05/22/24 06/05/24 History gram-calcium HMB 1.5 gram oral powder pack (Dustin) nystatin 100,000 unit/gram topical 1 applic topical DAILY 05/22/24 06/05/24 History cream nut.tx.gluc.intol,lac-free,soy 240 ml PO DAILY 06/04/24 06/05/24 History (Glucerna oral liquid) sennosides 8.6 mg-docusate sodium 1 tab-cap PO BID PRN PRN 06/04/24 06/05/24 History 50 mg tablet (Stimulant Laxative Constipation Plus) clopidogrel 75 mg tablet 75 mg PO QHS 07/02/24 Unknown History acetaminophen 325 mg tablet 650 mg PO Q8H PRN PRN Pain 1-10 Or 07/13/24 Unknown History Fever >100.7 cholecalciferol (vitamin D3) 125 125 mcg PO DAILY 07/13/24 Unknown History mcg (5,000 unit) capsule insulin lispro 100 unit/mL 10 unit subcut TID 07/13/24 Unknown History subcutaneous pen vancomycin 750 mg intravenous 750 mg IV .see below 38 days #16 ea 07/19/24 Unknown Rx solution albuterol sulfate 2.5 mg/3 mL 2.5 mg (3 mL) inhalation Q2H PRN 07/20/24 Unknown Rx (0.083 %) solution for nebulization PRN SOB &/OR WHEEZING #0 mL benzocaine 15 mg-menthol 3.6 mg 2 mariaa mucous membrane Q2H PRN PRN 07/20/24 Unknown Rx lozenges (Sore Throat (benzocaine sore throat #0 ea with menthol)) heparin (porcine) 5,000 unit/mL 5,000 unit subcut Q8 #0 mL 07/20/24 Unknown Rx injection solution menthol 0.44 %-zinc oxide 20.6 % 1 applic topical BID #0 grams 07/20/24 Unknown Rx topical ointment (Calmoseptine) oxycodone 5 mg tablet 2.5 mg (1/2 x 5 mg) PO Q4H PRN PRN 07/20/24 Unknown Rx Pain Score 4-10 1 day #6 tabs sodium hypochlorite 0.25 % See Protocol topical DAILY #0 mL 07/20/24 Unknown Rx solution (HySept) Allergy/AdvReac Type Severity Reaction Status Date / Time pioglitazone (From Actos) Allergy fatigue Verified 07/13/24 14:00 simvastatin (From Zocor) Allergy myalgia Verified 07/13/24 14:00 sitagliptin (From Januvia) Allergy unknown Verified 07/13/24 14:00 Family History Mother Hypertension Father Diabetes COPD (chronic obstructive pulmonary disease) Surgical History Hx of foot surgery History of cataract extraction History of ligation of vein History of arteriovenostomy for renal dialysis History of inguinal hernia repair History of appendectomy Social History Smoking Status: Never smoker alcohol intake: never substance use type: does not use caffeine: Yes Type: coffee Number of servings: 1 what type of physical activity do you participate in: none seatbelt use: always do you feel safe at home: Yes Vital Signs Vital Signs Vital Signs: 07/23/24 09:39 Temperature 96.9 F L Temperature Source Temporal Pulse Rate 56 L Respiratory Rate 18 Blood Pressure 126/42 H Blood Pressure Mean 70 Blood Pressure Source Monitor Blood Pressure Position Semi-Fowlers Blood Pressure Location Left Arm Oxygen Delivery Method Room Air Weight Weight: 204 lb Body Mass Index (BMI) 31.9 Physical Exam Narrative Right lower extremity RIGHT LOWER Extremity Inspection: Open TMA wound with exposed tarsal bones at the base with minimal granulation tissue. No purulent drainage. There is also a likely full-thickness wound as evidenced by an eschar over the lateral calcaneus. Wound is 6.7 x 8.5 cm and is 2.6 cm deep Palpation: No palpable fluid collections Motor: He is able to flex and dorsiflex his ankle slightly with minimal strength Sensory: Intact to light touch on the plantar surface of the foot Vascular: I cannot palpate pulses, but skin edges appear warm. Const alert and oriented x3 Eyes EOMs intact bilaterally Resp normal respiratory effort and clear to auscultation bilaterally Cardio regular rate Cardio Narrative: I heard a systolic murmur between S1 and S2 Debridement Note Debridement Note Wound debrided: Right lower extremity transmetatarsal amputation wound Laterality: Right Wound Grade/Stage: For Type of Debridement: Excisional debridement Anesthesia Used: 4% Lidocaine Solution and - (Scissors and a pickup as well) Depth: to bone Percentage of wound debrided: 100 Instrument Used: 7mm curette Severity: Necrosis of Bone Amount of bleeding with debridement: Mild Bleeding Controlled with: Pressure Patient tolerated procedure: Patient tolerated procedure well Post-Debridement Measurements and Additional Note: Post-Debridement Measurements/Treatment - Nurse 1 - General Ulcer Assessment Start: 07/23/24 09:39 Freq: Status: Active Protocol: FREEMAN Activity Type Activity Date Activity User E-sign Co-sign Detail Recorded Client Recorded Date Recorded By Document 07/23/24 09:39 KW [id number] 07/23/24 09:48 KW 07/23/24 09:39 WC - Today's Visit Information Type of service Follow-up Visit (Physician/DIRECTOR TELEVISION ) Arrival Mode Wheelchair Accompanied by son in law and son Patient Identification Verified (Name & Yes ) Height and Weight Body Mass Index (BMI) 31.9 BMI Classification Obese Vital Signs Temperature (97.8 F-99.1 F) 96.9 F L Temperature Source Temporal Pulse Rate (60-100) 56 L Pulse Location Monitor Respiratory Rate (12-18) 18 Respiratory rate source Observation Oxygen Delivery Method Room Air Blood Pressure (90/60-120/80) 126/42 H Blood Pressure Mean 70 Source Monitor Position Semi-Fowlers Blood Pressure Location Left Arm History Since Last Visit- (Skip if this is Patient's initial visit) Have you changed medications since your No last visit? Any new allergies or adverse reactions No Had a fall/change in ADL's that may No increase risk of falls Signs or symptoms of abuse and/or No neglect since last visit Have you been in the hospital since your No last visit? Has dressing in place as prescribed Yes Has compression in place as prescribed N/A Has offloadiing in place as prescribed N/A Experienced any changes in pain level or No management Left Footwear Slipper Right Footwear Slipper Pain Scale: 0-10 Numeric Is Patient Pain Free? Yes [facility] Nurse 1 - General Ulcer Measurement Start: 07/23/24 09:39 Freq: Status: Active Protocol: Activity Type Activity Date Activity User E-sign Co-sign Detail Recorded Client Recorded Date Recorded By Document 07/23/24 09:39 KW [id number] 07/23/24 09:48 KW 07/23/24 09:39 Wound Center Nurse 1 #2 rt HEEL -Current Size (cm) - Length 1.8 -Current Size (cm) - Width 1.5 -Current Size (cm) - Depth 0.5 -Total Square Cm 2.70 -Date of Last Picture (Recall this 07/23/24 field) -Exudate Amt None Present -Wound Margin Distinct, Outline Attached -Necrosis Amt Large (67-100%) -Necrotic Tissue Type Eschar -Texture (Apurva-wound Skin Appearance) Assessed -Moisture (Apurva-wound Skin Appearance) Assessed -Color (Apurva-wound Skin Appearance) Assessed, Erythema -Temperature (Apurva-wound Skin No Abnormality Appearance) (Pt Warm) -Tenderness on Palpation (Apurva-wound No Skin Appearance) -Ulcer Cleansing Soap and Water -Foul Odor after Cleansing No -Anesthetic Used 4% Lidocaine Solution #1 RT FT POST-OP -Current Size (cm) - Length 6 -Current Size (cm) - Width 10.9 -Current Size (cm) - Depth 2.1 -Total Square Cm 65.4 -Date of Last Picture (Recall this 07/23/24 field) -Exudate Amt Small -Exudate Type Serosanguineous -Wound Margin Thickened & Rolled Under -Granulation Amt Small (1-33%) -Granulation Quality [place] -Necrosis Amt Large (67-100%) -Necrotic Tissue Type Eschar -Structure Exposed Bone -Texture (Apurva-wound Skin Appearance) Assessed -Moisture (Apurva-wound Skin Appearance) Assessed -Color (Apurva-wound Skin Appearance) Assessed -Temperature (Apurva-wound Skin No Abnormality Appearance) (Pt Warm) -Tenderness on Palpation (Apurva-wound No Skin Appearance) -Ulcer Cleansing Soap and Water -Foul Odor after Cleansing No -Anesthetic Used 4% Lidocaine Solution WC - Nurse 2 - General Ulcer CM Notes Start: 07/23/24 09:39 Freq: Status: Active Protocol: Activity Type Activity Date Activity User E-sign Co-sign Detail Recorded Client Recorded Date Recorded By Document 07/23/24 10:32 DS [id number] 07/23/24 10:42 DS Edit Result 07/23/24 10:32 DS (1) [id number] 07/23/24 11:49 DS (1) #2 rt HEEL - Time => 10:32 - Correct Patient => Yes - Procedure Performed => No #1 RT FT POST-OP - Injectable Lidocaine (%) => 20 07/23/24 10:32 Wound Center Nurse 2 #2 rt HEEL -Time 10:32 -Correct Patient Yes -Procedure Performed No #1 RT FT POST-OP -Time 10:32 -Correct Patient Yes -Correct Side, Site, Position Yes -Correct Procedure Yes -Procedure Performed Yes -Type of Procedure Debridement -Clinical Debridement Bone -Tissue Removed Muscle,Fascia -Post Debridement (cm) - Length 6.7 -Post Debridement (cm) - Width 8.5 -Post Debridement (cm) - Depth 2.6 -Total Square (Post) (cm) 56.95 -Area of Debridement (cm) - Length 6.7 -Area of Debridement (cm) - Width 8.5 -Total Square (Area) (cm) 56.95 -Tunneling No -Undermining/Tunneling No -Circular Undermining No -Wound/Ulcer Outcome Not Healed -Ulcer Cleansing Rinsed/ Irrigated with Saline -Foul Odor after Cleansing No -Bioengineered Tissue No -Injectable Lidocaine (%) 20 -Bleeding Controlled with Pressure -Treatment Response Procedure Tolerated Well -Debridement - Bone, 1st 20sq cm Yes -Debridement, Bone, ea addt'l 20sq cm 2 or part thereof Pain Scale: 0-10 Numeric Is Patient Pain Free? Yes WC - Nurse 3 - General Ulcer D/C NN Start: 07/23/24 09:39 Freq: Status: Active Protocol: Activity Type Activity Date Activity User E-sign Co-sign Detail Recorded Client Recorded Date Recorded By Document 07/23/24 10:46 [facility] [id number] 07/23/24 10:47 [facility] 07/23/24 10:46 Wound Care Center Nurse 3 #2 rt HEEL -Ulcer Cleansing Rinsed/ Irrigated with Saline -Foul Odor after Cleansing No -Other Dressing betadine paint per jf rn -Primary Dressing Covered/Secured with Dry Gauze & Roll Gauze, Secured with Tape -Other Covering heel hat #1 RT FT POST-OP -Ulcer Cleansing Rinsed/ Irrigated with Saline -Foul Odor after Cleansing No -Other Dressing dakins moist gauze -Primary Dressing Covered/Secured with Dry Gauze & Roll Gauze, Secured with Tape -Other Covering drsg per lois rn Treatment Response Procedure Tolerated Well Pain Scale: 0-10 Numeric Is Patient Pain Free? Yes WC - Visit Discharge Discharge Condition Stable Ambulatory Status Wheelchair Transportation ecf Facility Type Alf Care Facility Lab / Micro Data Attestation: I reviewed the patient's lab results. Lab results narrative: I also reviewed the recent echocardiogram which demonstrated no aortic stenosis and an ejection fraction of approximately 60% Charges/Coding Visit Charges Office Visits / Consults: 33233 OV L5 New 60min Procedures Integumentary [id number]: [id number] Emilie bone 20 sq cm/< (25 modifier ) Add On Codes: 69025 Emilie bone add-on (x 1 unit ) Assessment/Plan Assessment/Plan (1) PAD (peripheral artery disease): CODE(S): I73.9 - Peripheral vascular disease, unspecified (2) Osteomyelitis of right foot: CODE(S): M86.9 - Osteomyelitis, unspecified QUALIFIERS: Osteomyelitis type: other chronic Qualified Code(s): M86.671 - Other chronic osteomyelitis, right ankle and foot (3) Diabetic infection of right foot: CODE(S): E11.628 - Type 2 diabetes mellitus with other skin complications; L08.9 - Local infection of the skin and subcutaneous tissue, unspecified (4) Wound, open, foot: CODE(S): S91.309A - Unspecified open wound, unspecified foot, initial encounter PLAN: Plan I talked to the patient and his adult son and angelon extensively about the condition of the right lower extremity and the residual foot status post transmetatarsal amputation by podiatry. I had a discussion today with vascular surgery (Dr. White, [facility]). He recommended that they do reschedule their appointment with vascular surgery to evaluate arch interventions to the foot to improve blood flow and healing. Dr. White does feel that at this point he could heal a BKA well. We talked extensively about the options of continued limb salvage versus amputation. I talked to Mr. Thompson and his adult sons about the increase in energy expenditure with an amputation, and how salvaging his foot, regardless the condition of the foot as long as it is healed, is likely better for him than an attempted amputation and a prosthetic. 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 I talked him about the issues with wound healing. I talked about the options of another debridement with vera flow wound VAC therapy, followed by further attempts at reconstruction once better blood flow is reestablished. Plan to follow-up with me following vascular surgery consultation at Continue Dakin's wet-to-dry dressings twice daily
--- NOTE | 2024-07-25 14:17 | WC ---
PHOTO 07/23/24 RIGHT FOOT POST OP
--- NOTE | 2024-07-25 14:22 | WC ---
PHOTO 07/23/24 LEFT HEEL
[2024-07-30 14:33] VITALS: BP 129/68; PULSE 45; RESP 16; TEMP 36.2; BMI 31.9
--- NOTE | 2024-07-30 16:14 | WC ---
PHOTO 07/30/24 RIGHT FOOT POST-OP
--- NOTE | 2024-07-30 16:14 | WC ---
PHOTO 07/30/24 RIGHT HEEL
--- NOTE | 2024-07-30 16:47 | PCM.WC.PN ---
History of Present Illness Date of Service: 07/30/24 Chief Complaint: R 1st digit amputation site, R 2nd toe ulceration History of Wound: Rohit Marvin is an 89-year-old male with complicated past medical history including severe type 2 diabetes that is better controlled now with hemoglobin A1c of 6 as well as peripheral vascular disease status post right lower extremity vascular interventions for nonhealing right foot wounds. 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 He was recently admitted for cellulitis/infection this past week, and missed a referral appointment to a vascular surgeon at to discuss arch flow improvement as his posterior tibial artery stops at the ankle and the peroneal and anterior tibial arteries do not perfuse the location where he needs flow. Patient denies constitutional symptoms. Patient denies pain. Patient has been maintaining nonweightbearing status at his SNF has been compliant with treatment thus far. No other complaints. Endorses good dressing changes. Subjective Subjective Current Encounter, 31 July 2024: Here for follow of right TMA wound. They have been having difficulty coordinating appointment with vascular surgery at [facility] for the pedal arch consultation as the dialysis schedule of Tuesday makes this a challenge. They are continuing wet-to-dry dressings twice daily as well as Betadine paint to the eschar on the heel. Patient and his sons report adequate pressure offloading. Objective Data Objective Data Vital Signs: Vital Signs Temp Pulse Resp BP O2 Del Method 97.1 F L 45 L 16 129/68 H Room Air 07/30/24 14:33 07/30/24 14:33 07/30/24 14:33 07/30/24 14:33 07/30/24 14:33 Oxygen Delivery Method Room Air Weight: 204 lb Body Mass Index (BMI) 31.9 Charges/Coding Procedures Integumentary 111xxx-113xx: 47095 Emilie bone 20 sq cm/< Add On Codes: 17359 Emilie bone add-on (x 2 units ) Physical Exam Narrative RIGHT LOWER Extremity Inspection: Persistent necrotic tissue and bone at the base of the TMA wound with exposed tarsal bones that have minimal granulation tissue. No purulent drainage. There is also a likely full-thickness wound as evidenced by an eschar over the lateral calcaneus. Wound is 9.5 x 5.5 m and is 2.5 cm deep Palpation: No palpable fluid collections Motor: He is able to flex and dorsiflex his ankle slightly with minimal strength Sensory: Intact to light touch on the plantar surface of the foot Vascular: I cannot palpate pulses, but skin edges appear warm. Const alert and oriented x3 Eyes EOMs intact bilaterally Resp normal respiratory effort and clear to auscultation bilaterally Cardio regular rate Cardio Narrative: I heard a systolic murmur between S1 and S2 Debridement Note Debridement Note Wound debrided: Right lower extremity transmetatarsal amputation wound Laterality: Right Wound Grade/Stage: Stage IV with exposed bone Type of Debridement: Excisional debridement Anesthesia Used: 4% Lidocaine Solution Depth: to bone Percentage of wound debrided: 100 Instrument Used: 7mm curette and - (Scissors and pickup for sharp excision) Severity: Necrosis of Bone (Necrotic tarsal bone/sequestrum was excised at the base of the wound by scraping with a curette Down to healthy bleeding medullary bone. Necrotic fascia and fat was also excised) Amount of bleeding with debridement: Moderate Bleeding Controlled with: Compression and gauze and Silver Nitrate Patient tolerated procedure: Patient tolerated procedure well Post-Debridement Measurements and Additional Note: Post-Debridement Measurements/Treatment - Nurse 1 - General Ulcer Assessment Start: 07/23/24 09:39 Freq: Status: Active Protocol: .NICOLE Activity Type Activity Date Activity User E-sign Co-sign Detail Recorded Client Recorded Date Recorded By Document 07/23/24 09:39 KW [id number] 07/23/24 09:48 KW Document 07/30/24 14:33 KW [id number] 07/30/24 14:45 KW 07/23/24 07/30/24 09:39 14:33 - Today's Visit Information Type of service Follow-up Visit Follow-up Visit (Physician/APPLICATIONS CONSULTANT (Physician/APPLICATIONS CONSULTANT ) ) Arrival Mode Wheelchair Wheelchair Accompanied by son in law and sons son Patient Identification Verified (Name & Yes Yes ) Height and Weight Body Mass Index (BMI) 31.9 31.9 BMI Classification Obese Obese Vital Signs Temperature (97.8 F-99.1 F) 96.9 F L 97.1 F L Temperature Source Temporal Temporal Pulse Rate (60-100) 56 L 45 L Pulse Location Monitor Monitor Respiratory Rate (12-18) 18 16 Respiratory rate source Observation Observation Oxygen Delivery Method Room Air Room Air Blood Pressure (90/60-120/80) 126/42 H 129/68 H Blood Pressure Mean (mm Hg) 70 88 Source Monitor Monitor Position Semi-Fowlers Sitting Blood Pressure Location Left Arm Right Arm History Since Last Visit- (Skip if this is Patient's initial visit) Have you changed medications since your No No last visit? Any new allergies or adverse reactions No No Had a fall/change in ADL's that may No No increase risk of falls Signs or symptoms of abuse and/or No No neglect since last visit Have you been in the hospital since your No No last visit? Has dressing in place as prescribed Yes Yes Has compression in place as prescribed N/A Yes Has offloadiing in place as prescribed N/A Yes Experienced any changes in pain level or No No management Left Footwear Slipper Regular Shoe Right Footwear Slipper No Footwear Pain Scale: 0-10 Numeric Is Patient Pain Free? Yes No Rt Foot -Comments tingling WC - Nurse 1 - General Ulcer Measurement Start: 07/23/24 09:39 Freq: Status: Active Protocol: Activity Type Activity Date Activity User E-sign Co-sign Detail Recorded Client Recorded Date Recorded By Document 07/23/24 09:39 KW [id number] 07/23/24 09:48 KW Document 07/30/24 14:33 KW [id number] 07/30/24 14:45 KW 07/23/24 07/30/24 09:39 14:33 Wound Center Nurse 1 #2 rt HEEL -Current Size (cm) - Length 1.8 2.7 -Current Size (cm) - Width 1.5 1.4 -Current Size (cm) - Depth 0.5 1.5 -Total Square Cm 2.70 3.78 -Date of Last Picture (Recall this 07/23/24 07/30/24 field) -Exudate Amt None Present Small -Exudate Type Serosanguineous -Wound Margin Distinct, Thickened Outline Attached -Granulation Amt None Present (0 %) -Necrosis Amt Large (67-100%) Large (67-100%) -Necrotic Tissue Type Eschar Eschar -Texture (Apurva-wound Skin Appearance) Assessed Assessed -Moisture (Apurva-wound Skin Appearance) Assessed Assessed -Color (Apurva-wound Skin Appearance) Assessed, Assessed, Erythema Erythema -Temperature (Apurva-wound Skin No Abnormality No Abnormality Appearance) (Pt Warm) (Pt Warm) -Tenderness on Palpation (Apurva-wound No No Skin Appearance) -Ulcer Cleansing Soap and Water Soap and Water -Foul Odor after Cleansing No No -Anesthetic Used 4% Lidocaine 5% Lidocaine Solution Gel #1 RT FT POST-OP -Current Size (cm) - Length 6 5.2 -Current Size (cm) - Width 10.9 9.5 -Current Size (cm) - Depth 2.1 2.6 -Total Square Cm 65.4 49.40 -Date of Last Picture (Recall this 07/23/24 07/30/24 field) -Exudate Amt Small Small -Exudate Type Serosanguineous Serosanguineous -Wound Margin Thickened & Thickened Rolled Under -Granulation Amt Small (1-33%) Small (1-33%) -Granulation Quality [place] -Necrosis Amt Large (67-100%) Large (67-100%) -Necrotic Tissue Type Eschar Eschar -Structure Exposed Bone -Texture (Apurva-wound Skin Appearance) Assessed Assessed -Moisture (Apurva-wound Skin Appearance) Assessed Assessed -Color (Apurva-wound Skin Appearance) Assessed Assessed, Erythema -Temperature (Apurva-wound Skin No Abnormality No Abnormality Appearance) (Pt Warm) (Pt Warm) -Tenderness on Palpation (Apurva-wound No No Skin Appearance) -Ulcer Cleansing Soap and Water Soap and Water -Foul Odor after Cleansing No No -Anesthetic Used 4% Lidocaine 4% Lidocaine Solution Solution WC - Nurse 2 - General Ulcer CM Notes Start: 07/23/24 09:39 Freq: Status: Active Protocol: Activity Type Activity Date Activity User E-sign Co-sign Detail Recorded Client Recorded Date Recorded By Document 07/23/24 10:32 DS [id number] 07/23/24 10:42 DS Edit Result 07/23/24 10:32 DS (1) [id number] 07/23/24 11:49 DS Document 07/30/24 15:01 JF [id number] 07/30/24 15:09 JF Edit Result 07/30/24 15:01 JF (2) [id number] 07/30/24 15:11 JF (1) #2 rt HEEL - Time => 10:32 - Correct Patient => Yes - Procedure Performed => No #1 RT FT POST-OP - Injectable Lidocaine (%) => 20 (2) #1 RT FT POST-OP - Post Debridement (cm) - Length => 5.5 - Post Debridement (cm) - Width => 9.5 - Post Debridement (cm) - Depth => 2.6 - Total Square (Post) (cm) => 52.25 - Area of Debridement (cm) - Length => 5.5 - Area of Debridement (cm) - Width => 9.5 - Total Square (Area) (cm) => 52.25 - Debridement, Bone, ea addt'l 20sq cm => 2 or part thereof 07/23/24 07/30/24 10:32 15:01 Wound Center Nurse 2 #2 rt HEEL -Time 10:32 -Correct Patient Yes No -Correct Side, Site, Position No -Correct Procedure No -Procedure Performed No No -Wound/Ulcer Outcome Not Healed #1 RT FT POST-OP -Time 10:32 15:01 -Correct Patient Yes Yes -Correct Side, Site, Position Yes Yes -Correct Procedure Yes Yes -Procedure Performed Yes Yes -Type of Procedure Debridement Debridement -Clinical Debridement Bone Bone -Tissue Removed Muscle,Fascia Non-viable tissue -Post Debridement (cm) - Length 6.7 5.5 -Post Debridement (cm) - Width 8.5 9.5 -Post Debridement (cm) - Depth 2.6 2.6 -Total Square (Post) (cm) 56.95 52.25 -Area of Debridement (cm) - Length 6.7 5.5 -Area of Debridement (cm) - Width 8.5 9.5 -Total Square (Area) (cm) 56.95 52.25 -Tunneling No No -Undermining/Tunneling No No -Circular Undermining No No -Wound/Ulcer Outcome Not Healed Not Healed -Ulcer Cleansing Rinsed/ Rinsed/ Irrigated with Irrigated with Saline Saline -Foul Odor after Cleansing No No -Bioengineered Tissue No No -Injectable Lidocaine (%) 20 -Bleeding Controlled with Pressure Pressure -Treatment Response Procedure Procedure Tolerated Well Tolerated Well -Offloading No -Debridement - Bone, 1st 20sq cm Yes Yes -Debridement, Bone, ea addt'l 20sq cm 2 2 or part thereof Pain Scale: 0-10 Numeric Is Patient Pain Free? Yes Yes WC - Nurse 3 - General Ulcer D/C NN Start: 07/23/24 09:39 Freq: Status: Active Protocol: Activity Type Activity Date Activity User E-sign Co-sign Detail Recorded Client Recorded Date Recorded By Document 07/23/24 10:46 [facility] [id number] 07/23/24 10:47 [facility] Document 07/30/24 15:34 [facility] [id number] 07/30/24 15:35 F 07/23/24 07/30/24 10:46 15:34 Wound Care Center Nurse 3 #2 rt HEEL -Ulcer Cleansing Rinsed/ Soap and Water Irrigated with Saline -Foul Odor after Cleansing No No -Other Dressing betadine paint betadine moist per lois rn gauze -Primary Dressing Covered/Secured with Dry Gauze & Dry Gauze & Roll Gauze, Roll Gauze, Secured with Secured with Tape Tape -Other Covering heel hat heel hat #1 RT FT POST-OP -Ulcer Cleansing Rinsed/ Soap and Water Irrigated with Saline -Foul Odor after Cleansing No No -Other Dressing dakins moist dakins moist gauze gauze -Primary Dressing Covered/Secured with Dry Gauze & Dry Gauze & Roll Gauze, Roll Gauze, Secured with Secured with Tape Tape -Other Covering drsg per lois rn abd Treatment Response Procedure Procedure Tolerated Well Tolerated Well Pain Scale: 0-10 Numeric Is Patient Pain Free? Yes Yes WC - Visit Discharge Discharge Condition Stable Stable Ambulatory Status Wheelchair Ambulatory, Wheelchair Transportation ecf Private Auto Accompanied by son and son in law Facility Type Edm Operator Care [facility] Operator Care Facility Facility Assessment/Plan Assessment/Plan (1) PAD (peripheral artery disease): CODE(S): I73.9 - Peripheral vascular disease, unspecified (2) Osteomyelitis of right foot: CODE(S): M86.9 - Osteomyelitis, unspecified QUALIFIERS: Osteomyelitis type: other chronic Qualified Code(s): M86.671 - Other chronic osteomyelitis, right ankle and foot (3) Diabetic infection of right foot: CODE(S): E11.628 - Type 2 diabetes mellitus with other skin complications; L08.9 - Local infection of the skin and subcutaneous tissue, unspecified (4) Wound, open, foot: CODE(S): S91.309A - Unspecified open wound, unspecified foot, initial encounter PLAN: Plan I talked to the patient and his adult son and dee extensively about the condition of the right lower extremity and the residual foot status post transmetatarsal amputation by podiatry. I had a discussion today with vascular surgery (Dr. White, [facility]). He recommended that they do reschedule their appointment with vascular surgery to evaluate arch interventions to the foot to improve blood flow and healing. Dr. White does feel that at this point he could heal a BKA well. We talked extensively about the options of continued limb salvage versus amputation. I talked to Mr. Thompson and his adult sons about the increase in energy expenditure with an amputation, and how salvaging his foot, regardless the condition of the foot as long as it is healed, is likely better for him than an attempted amputation and a prosthetic. 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 I talked him about the issues with wound healing. I talked about the options of another debridement with vera flow wound VAC therapy, followed by further attempts at reconstruction once better blood flow is reestablished. Plan to follow-up with me following vascular surgery consultation at Continue [facility] wet-to-dry dressings twice daily PLAN FROM 31 July 2024: We talked again today about limb salvage v amputation v palliative care options. I had a conversation with vascular surgery at [facility] who recommended that the patient see vascular surgery at (for pedal arch interventions) before any amputation. The family and patient are adamant that they do not want to do amputation at this time and would like to continue attempts at salvage and meet with vascular surgery before considering other options such as below-knee amputation. I offered/suggested for them to see podiatry for wound care until the vascular surgeons finalize there plan, and they wanted to continue to come to plastics for wound care. Plan to follow-up with me next week for wound care/check on wound and prevent/monitor for acute infection developing. Continue [facility] wet-to-dry dressings twice daily. Betadine paint to the calf wound eschar to keep dry twice daily Discussed concerning signs/symptoms of acute/ascending infection (and wet gangrene) with the family and the patient, discussing return precautions/what to look for that would signal a need for ED evaluation.
--- NOTE | 2024-08-06 10:12 | PCM.WC.PN ---
History of Present Illness Date of Service: 08/06/24 Chief Complaint: R 1st digit amputation site, R 2nd toe ulceration History of Wound: Rohit Marvin is an 89-year-old male with complicated past medical history including severe type 2 diabetes that is better controlled now with hemoglobin A1c of 6 as well as peripheral vascular disease status post right lower extremity vascular interventions for nonhealing right foot wounds. 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 He was recently admitted for cellulitis/infection this past week, and missed a referral appointment to a vascular surgeon at to discuss arch flow improvement as his posterior tibial artery stops at the ankle and the peroneal and anterior tibial arteries do not perfuse the location where he needs flow. Patient denies constitutional symptoms. Patient denies pain. Patient has been maintaining nonweightbearing status at his SNF has been compliant with treatment thus far. No other complaints. Endorses good dressing changes. Subjective Subjective 31 July 2024: Here for follow of right TMA wound. They have been having difficulty coordinating appointment with vascular surgery at [facility] for the pedal arch consultation as the dialysis schedule of Tuesday makes this a challenge. They are continuing wet-to-dry dressings twice daily as well as Betadine paint to the eschar on the heel. Patient and his sons report adequate pressure offloading. Current Encounter, 06 August 2024: Here for follow up of the wound. Family and the patient still adamant about attempt at limb salvage (coordinating appointment with vascular surgery). He was sent to [facility] ED last on Tue for a wound check and was prompletly sent back to the SNF. Objective Data Objective Data Vital Signs: Vital Signs Temp Pulse Resp BP O2 Del Method 97.1 F L 45 L 16 129/68 H Room Air 07/30/24 14:33 07/30/24 14:33 07/30/24 14:33 07/30/24 14:33 07/30/24 14:33 Oxygen Delivery Method Room Air Weight: 204 lb Body Mass Index (BMI) 31.9 Charges/Coding Procedures Integumentary 111xxx-113xx: [id number] Emilie bone 20 sq cm/< Add On Codes: 07693 Emilie bone add-on (x2) Physical Exam Narrative RIGHT LOWER Extremity Inspection: Persistent necrotic tissue and bone at the base of the TMA wound with exposed tarsal bones that have minimal granulation tissue. This wound measures 9 x 4.5 cm and is 2.6 cm deep. No purulent drainage. There is also a full-thickness 1 x 1.5 cm lateral calcaneus wound that is now open and without drainage but with a depth of 1 cm. Palpation: No palpable fluid collections Motor: He is able to flex and dorsiflex his ankle slightly with minimal strength Sensory: Intact to light touch on the plantar surface of the foot Vascular: I cannot palpate pulses, but skin edges appear warm. Const alert and oriented x3 Eyes EOMs intact bilaterally Resp normal respiratory effort and clear to auscultation bilaterally Cardio regular rate Cardio Narrative: I heard a systolic murmur between S1 and S2 Debridement Note Debridement Note Wound debrided: Right transmetatarsal amputation wound Laterality: Right Wound Grade/Stage: Stage IV with exposed tarsal bones Type of Debridement: Excisional debridement Anesthesia Used: 4% Lidocaine Solution and - (10 cc of 1% lidocaine with 1-200,000 epinephrine) Depth: to bone (There is necrotic bone at the base of the wound with necrotic bone chips and sequestrum since the wound is full-thickness down to the bone) Percentage of wound debrided: 100 (The entire wound was excised, which included excision of the necrotic bone and fascia at the base of the wound) Instrument Used: 7mm curette and - (Also scalpel, scissors and pickup for sharp excision) Tissue Removed: Necrotic bone, fascia, and necrotic skin Severity: Necrosis of Bone Amount of bleeding with debridement: Moderate Bleeding Controlled with: Compression and gauze and - (Also used 1% lidocaine with epinephrine for hemostasis) Patient tolerated procedure: Patient tolerated procedure well Operative Diagnosis: Severe transmetatarsal amputation wound in setting of poor foot blood flow Post-Debridement Measurements and Additional Note: Post-Debridement Measurements/Treatment TARA - Nurse 1 - General Ulcer Assessment Start: 07/23/24 09:39 Freq: Status: Active Protocol: FREEMAN Activity Type Activity Date Activity User E-sign Co-sign Detail Recorded Client Recorded Date Recorded By Document 07/23/24 09:39 KW [id number] 07/23/24 09:48 KW Document 07/30/24 14:33 KW [id number] 07/30/24 14:45 KW 07/23/24 07/30/24 09:39 14:33 WC - Today's Visit Information Type of service Follow-up Visit Follow-up Visit (Physician/ENGINEERING OFFICER (Physician/ENGINEERING OFFICER ) ) Arrival Mode Wheelchair Wheelchair Accompanied by son in law and sons son Patient Identification Verified (Name & Yes Yes ) Height and Weight Body Mass Index (BMI) 31.9 31.9 BMI Classification Obese Obese Vital Signs Temperature (97.8 F-99.1 F) 96.9 F L 97.1 F L Temperature Source Temporal Temporal Pulse Rate (60-100) 56 L 45 L Pulse Location Monitor Monitor Respiratory Rate (12-18) 18 16 Respiratory rate source Observation Observation Oxygen Delivery Method Room Air Room Air Blood Pressure (90/60-120/80) 126/42 H 129/68 H Blood Pressure Mean (mm Hg) 70 88 Source Monitor Monitor Position Semi-Fowlers Sitting Blood Pressure Location Left Arm Right Arm History Since Last Visit- (Skip if this is Patient's initial visit) Have you changed medications since your No No last visit? Any new allergies or adverse reactions No No Had a fall/change in ADL's that may No No increase risk of falls Signs or symptoms of abuse and/or No No neglect since last visit Have you been in the hospital since your No No last visit? Has dressing in place as prescribed Yes Yes Has compression in place as prescribed N/A Yes Has offloadiing in place as prescribed N/A Yes Experienced any changes in pain level or No No management Left Footwear Slipper Regular Shoe Right Footwear Slipper No Footwear Pain Scale: 0-10 Numeric Is Patient Pain Free? Yes No Rt Foot -Comments tingling - Nurse 1 - General Ulcer Measurement Start: 07/23/24 09:39 Freq: Status: Active Protocol: Activity Type Activity Date Activity User E-sign Co-sign Detail Recorded Client Recorded Date Recorded By Document 07/23/24 09:39 KW [id number] 07/23/24 09:48 KW Document 07/30/24 14:33 KW [id number] 07/30/24 14:45 KW 07/23/24 07/30/24 09:39 14:33 Wound Center Nurse 1 #2 rt HEEL -Current Size (cm) - Length 1.8 2.7 -Current Size (cm) - Width 1.5 1.4 -Current Size (cm) - Depth 0.5 1.5 -Total Square Cm 2.70 3.78 -Date of Last Picture (Recall this 07/23/24 07/30/24 field) -Exudate Amt None Present Small -Exudate Type Serosanguineous -Wound Margin Distinct, Thickened Outline Attached -Granulation Amt None Present (0 %) -Necrosis Amt Large (67-100%) Large (67-100%) -Necrotic Tissue Type Eschar Eschar -Texture (Apurva-wound Skin Appearance) Assessed Assessed -Moisture (Apurva-wound Skin Appearance) Assessed Assessed -Color (Apurva-wound Skin Appearance) Assessed, Assessed, Erythema Erythema -Temperature (Apurva-wound Skin No Abnormality No Abnormality Appearance) (Pt Warm) (Pt Warm) -Tenderness on Palpation (Apurva-wound No No Skin Appearance) -Ulcer Cleansing Soap and Water Soap and Water -Foul Odor after Cleansing No No -Anesthetic Used 4% Lidocaine 5% Lidocaine Solution Gel #1 RT FT POST-OP -Current Size (cm) - Length 6 5.2 -Current Size (cm) - Width 10.9 9.5 -Current Size (cm) - Depth 2.1 2.6 -Total Square Cm 65.4 49.40 -Date of Last Picture (Recall this 07/23/24 07/30/24 field) -Exudate Amt Small Small -Exudate Type Serosanguineous Serosanguineous -Wound Margin Thickened & Thickened Rolled Under -Granulation Amt Small (1-33%) Small (1-33%) -Granulation Quality Olla Olla -Necrosis Amt Large (67-100%) Large (67-100%) -Necrotic Tissue Type Eschar Eschar -Structure Exposed Bone -Texture (Apurva-wound Skin Appearance) Assessed Assessed -Moisture (Apurva-wound Skin Appearance) Assessed Assessed -Color (Apurva-wound Skin Appearance) Assessed Assessed, Erythema -Temperature (Apurva-wound Skin No Abnormality No Abnormality Appearance) (Pt Warm) (Pt Warm) -Tenderness on Palpation (Apurva-wound No No Skin Appearance) -Ulcer Cleansing Soap and Water Soap and Water -Foul Odor after Cleansing No No -Anesthetic Used 4% Lidocaine 4% Lidocaine Solution Solution WC - Nurse 2 - General Ulcer CM Notes Start: 07/23/24 09:39 Freq: Status: Active Protocol: Activity Type Activity Date Activity User E-sign Co-sign Detail Recorded Client Recorded Date Recorded By Document 07/23/24 10:32 DS [id number] 07/23/24 10:42 DS Edit Result 07/23/24 10:32 DS (1) [id number] 07/23/24 11:49 DS Document 07/30/24 15:01 JF [id number] 07/30/24 15:09 JF Edit Result 07/30/24 15:01 JF (2) [id number] 07/30/24 15:11 JF (1) #2 rt HEEL - Time => 10:32 - Correct Patient => Yes - Procedure Performed => No #1 RT FT POST-OP - Injectable Lidocaine (%) => 20 (2) #1 RT FT POST-OP - Post Debridement (cm) - Length => 5.5 - Post Debridement (cm) - Width => 9.5 - Post Debridement (cm) - Depth => 2.6 - Total Square (Post) (cm) => 52.25 - Area of Debridement (cm) - Length => 5.5 - Area of Debridement (cm) - Width => 9.5 - Total Square (Area) (cm) => 52.25 - Debridement, Bone, ea addt'l 20sq cm => 2 or part thereof 07/23/24 07/30/24 10:32 15:01 Wound Center Nurse 2 #2 rt HEEL -Time 10:32 -Correct Patient Yes No -Correct Side, Site, Position No -Correct Procedure No -Procedure Performed No No -Wound/Ulcer Outcome Not Healed #1 RT FT POST-OP -Time 10:32 15:01 -Correct Patient Yes Yes -Correct Side, Site, Position Yes Yes -Correct Procedure Yes Yes -Procedure Performed Yes Yes -Type of Procedure Debridement Debridement -Clinical Debridement Bone Bone -Tissue Removed Muscle,Fascia Non-viable tissue -Post Debridement (cm) - Length 6.7 5.5 -Post Debridement (cm) - Width 8.5 9.5 -Post Debridement (cm) - Depth 2.6 2.6 -Total Square (Post) (cm) 56.95 52.25 -Area of Debridement (cm) - Length 6.7 5.5 -Area of Debridement (cm) - Width 8.5 9.5 -Total Square (Area) (cm) 56.95 52.25 -Tunneling No No -Undermining/Tunneling No No -Circular Undermining No No -Wound/Ulcer Outcome Not Healed Not Healed -Ulcer Cleansing Rinsed/ Rinsed/ Irrigated with Irrigated with Saline Saline -Foul Odor after Cleansing No No -Bioengineered Tissue No No -Injectable Lidocaine (%) 20 -Bleeding Controlled with Pressure Pressure -Treatment Response Procedure Procedure Tolerated Well Tolerated Well -Offloading No -Debridement - Bone, 1st 20sq cm Yes Yes -Debridement, Bone, ea addt'l 20sq cm 2 2 or part thereof Pain Scale: 0-10 Numeric Is Patient Pain Free? Yes Yes - Nurse 3 - General Ulcer D/C NN Start: 07/23/24 09:39 Freq: Status: Active Protocol: Activity Type Activity Date Activity User E-sign Co-sign Detail Recorded Client Recorded Date Recorded By Document 07/23/24 10:46 [facility] [id number] 07/23/24 10:47 [facility] Document 07/30/24 15:34 [facility] [id number] 07/30/24 15:35 [facility] 07/23/24 07/30/24 10:46 15:34 Wound Care Center Nurse 3 #2 rt HEEL -Ulcer Cleansing Rinsed/ Soap and Water Irrigated with Saline -Foul Odor after Cleansing No No -Other Dressing betadine paint betadine moist per lois nance gauze -Primary Dressing Covered/Secured with Dry Gauze & Dry Gauze & Roll Gauze, Roll Gauze, Secured with Secured with Tape Tape -Other Covering heel hat heel hat #1 RT FT POST-OP -Ulcer Cleansing Rinsed/ Soap and Water Irrigated with Saline -Foul Odor after Cleansing No No -Other Dressing dakins moist dakins moist gauze gauze -Primary Dressing Covered/Secured with Dry Gauze & Dry Gauze & Roll Gauze, Roll Gauze, Secured with Secured with Tape Tape -Other Covering drsg per lois rn abd Treatment Response Procedure Procedure Tolerated Well Tolerated Well Pain Scale: 0-10 Numeric Is Patient Pain Free? Yes Yes WC - Visit Discharge Discharge Condition Stable Stable Ambulatory Status Wheelchair Ambulatory, Wheelchair Transportation ecf Private Auto Accompanied by son and son in law Facility Type [facility] Facility Facility Assessment/Plan Assessment/Plan (1) PAD (peripheral artery disease): CODE(S): I73.9 - Peripheral vascular disease, unspecified (2) Osteomyelitis of right foot: CODE(S): M86.9 - Osteomyelitis, unspecified QUALIFIERS: Osteomyelitis type: other chronic Qualified Code(s): M86.671 - Other chronic osteomyelitis, right ankle and foot (3) Diabetic infection of right foot: CODE(S): E11.628 - Type 2 diabetes mellitus with other skin complications; L08.9 - Local infection of the skin and subcutaneous tissue, unspecified (4) Wound, open, foot: CODE(S): S91.309A - Unspecified open wound, unspecified foot, initial encounter PLAN: Plan I talked to the patient and his adult son and angelon extensively about the condition of the right lower extremity and the residual foot status post transmetatarsal amputation by podiatry. I had a discussion today with vascular surgery (Dr. White, [facility]). He recommended that they do reschedule their appointment with vascular surgery to evaluate arch interventions to the foot to improve blood flow and healing. Dr. White does feel that at this point he could heal a BKA well. We talked extensively about the options of continued limb salvage versus amputation. I talked to Mr. Thompson and his adult sons about the increase in energy expenditure with an amputation, and how salvaging his foot, regardless the condition of the foot as long as it is healed, is likely better for him than an attempted amputation and a prosthetic. 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 I talked him about the issues with wound healing. I talked about the options of another debridement with vera flow wound VAC therapy, followed by further attempts at reconstruction once better blood flow is reestablished. Plan to follow-up with me following vascular surgery consultation at Continue Dakin's wet-to-dry dressings twice daily PLAN FROM 31 July 2024: We talked again today about limb salvage v amputation v palliative care options. I had a conversation with vascular surgery at [facility] who recommended that the patient see vascular surgery at (for pedal arch interventions) before any amputation. The family and patient are adamant that they do not want to do amputation at this time and would like to continue attempts at salvage and meet with vascular surgery before considering other options such as below-knee amputation. I offered/suggested for them to see podiatry for wound care until the vascular surgeons finalize there plan, and they wanted to continue to come to plastics for wound care. Plan to follow-up with me next week for wound care/check on wound and prevent/monitor for acute infection developing. Continue Dakin's wet-to-dry dressings twice daily. Betadine paint to the calf wound eschar to keep dry twice daily Discussed concerning signs/symptoms of acute/ascending infection (and wet gangrene) with the family and the patient, discussing return precautions/what to look for that would signal a need for ED evaluation. Plan from 06 August 2024: Reiterated above risks, benefits, and alternatives to continued limb salvage. I discussed with the patient and his sons that today would be reasonable stopping limb salvage (if they wanted a below-knee amputation today, I think it would be reasonable to schedule). They are adamant about continued limb salvage and would like to keep their appointment with vascular surgery for potential improvement of pedal arch flow, which is scheduled for early August. Patient and his sons happy with plan to follow-up in the wound care center weekly for wound checks and debridement as needed so as to prevent a severe foot infection from developing. Follow-up in 1 week
[2024-08-06 10:16] VITALS: BP 110/50; PULSE 60; RESP 18; TEMP 36.6; BMI 31.9
--- NOTE | 2024-08-07 09:39 | WC ---
08/06/24 RT FOOT POST OP
[2024-08-13 10:32] VITALS: BP 130/52; PULSE 43; RESP 18; TEMP 35.9; BMI 31.9
--- NOTE | 2024-08-13 21:02 | PCM.WC.PN ---
History of Present Illness Date of Service: 08/13/24 Chief Complaint: R 1st digit amputation site, R 2nd toe ulceration History of Wound: Rohit Marvin is an 89-year-old male with complicated past medical history including severe type 2 diabetes that is better controlled now with hemoglobin A1c of 6 as well as peripheral vascular disease status post right lower extremity vascular interventions for nonhealing right foot wounds. 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 He was recently admitted for cellulitis/infection this past week, and missed a referral appointment to a vascular surgeon at to discuss arch flow improvement as his posterior tibial artery stops at the ankle and the peroneal and anterior tibial arteries do not perfuse the location where he needs flow. Patient denies constitutional symptoms. Patient denies pain. Patient has been maintaining nonweightbearing status at his SNF has been compliant with treatment thus far. No other complaints. Endorses good dressing changes. Subjective Subjective 31 July 2024: Here for follow of right TMA wound. They have been having difficulty coordinating appointment with vascular surgery at [facility] for the pedal arch consultation as the dialysis schedule of Tuesday makes this a challenge. They are continuing wet-to-dry dressings twice daily as well as Betadine paint to the eschar on the heel. Patient and his sons report adequate pressure offloading. 06 August 2024: Here for follow up of the wound. Family and the patient still adamant about attempt at limb salvage (coordinating appointment with vascular surgery). He was sent to [facility] ED last on Tue for a wound check and was promptly sent back to the SNF. Current encounter, 13 August 2024: No significant changes. Has appointment with vascular surgery on 22 August 2024 (next week). Objective Data Objective Data Vital Signs: Vital Signs Temp Pulse Resp BP O2 Del Method 96.7 F L 43 L 18 130/52 H Room Air 08/13/24 10:32 08/13/24 10:32 08/13/24 10:32 08/13/24 10:32 08/13/24 10:32 Oxygen Delivery Method Room Air Weight: 204 lb Body Mass Index (BMI) 31.9 Charges/Coding Procedures Integumentary 111xxx-113xx: 04263 Emilie bone 20 sq cm/< Add On Codes: 43170 Emilie bone add-on Physical Exam Narrative RIGHT LOWER Extremity Inspection: Persistent necrotic tissue and bone at the base of the TMA wound with exposed tarsal bones that have minimal granulation tissue. This wound measures 9.6 x 5.9 cm and is 3.7 cm deep. No purulent drainage. There is also a full-thickness 2.5 x 1.9 cm and 1.5 cm deep lateral calcaneus wound that is now open and without drainage. Palpation: No palpable fluid collections Motor: He is able to flex and dorsiflex his ankle slightly with minimal strength Sensory: Intact to light touch on the plantar surface of the foot Vascular: I cannot palpate pulses, but skin edges appear warm. Const alert and oriented x3 Eyes EOMs intact bilaterally Resp normal respiratory effort and clear to auscultation bilaterally Cardio regular rate Cardio Narrative: I heard a systolic murmur between S1 and S2 Debridement Note Debridement Note Wound debrided: Right foot TMA wound Laterality: Right Wound Grade/Stage: 4 Type of Debridement: Excisional debridement Anesthesia Used: 4% Lidocaine Solution and - (10 cc of 1% lidocaine with 1:200,000 epinephrine) Depth: to bone Percentage of wound debrided: 100 Instrument Used: 7mm curette, #15 blade, Forceps and - (scissors ) Tissue Removed: necrotic bone (sequestrum) over metatarsals, necrotic foot fascia, fat/skin Severity: Necrosis of Bone Amount of bleeding with debridement: Moderate Bleeding Controlled with: Pressure and - (epinephrine in the local solution ) Patient tolerated procedure: Patient tolerated procedure well Post-Debridement Measurements and Additional Note: Post-Debridement Measurements/Treatment - Nurse 1 - General Ulcer Assessment Start: 07/23/24 09:39 Freq: Status: Active Protocol: FREEMAN Activity Type Activity Date Activity User E-sign Co-sign Detail Recorded Client Recorded Date Recorded By Document 07/23/24 09:39 KW [id number] 07/23/24 09:48 KW Document 07/30/24 14:33 KW [id number] 07/30/24 14:45 KW Document 08/06/24 10:16 DL [id number] 08/06/24 10:26 DL Document 08/13/24 10:32 KW [id number] 08/13/24 10:39 KW 07/23/24 07/30/24 08/06/24 09:39 14:33 10:16 - Today's Visit Information Type of service Follow-up Visit Follow-up Visit Follow-up Visit (Physician/PHOTOVOLTAIC INSTALLATION TECHNICIAN (Physician/PHOTOVOLTAIC INSTALLATION TECHNICIAN (Physician/PHOTOVOLTAIC INSTALLATION TECHNICIAN ) ) ) Arrival Mode Wheelchair Wheelchair Wheelchair Transfer Assistance None Accompanied by son in law and sons son Patient Identification Verified (Name & Yes Yes Yes ) Patient Requires Transmission-Based No Precautions Height and Weight Body Mass Index (BMI) 31.9 31.9 31.9 BMI Classification Obese Obese Obese Vital Signs Temperature (97.8 F-99.1 F) 96.9 F L 97.1 F L 97.8 F Temperature Source Temporal Temporal Temporal Pulse Rate (60-100) 56 L 45 L 60 Pulse Location Monitor Monitor Monitor Respiratory Rate (12-18) 18 16 18 Respiratory rate source Observation Observation Observation Oxygen Delivery Method Room Air Room Air Blood Pressure (90/60-120/80) 126/42 H 129/68 H 110/50 L Blood Pressure Mean (mm Hg) 70 88 70 Source Monitor Monitor Monitor Position Semi-Fowlers Sitting Blood Pressure Location Left Arm Right Arm History Since Last Visit- (Skip if this is Patient's initial visit) Have you changed medications since your No No No last visit? Any new allergies or adverse reactions No No No Had a fall/change in ADL's that may No No No increase risk of falls Signs or symptoms of abuse and/or No No No neglect since last visit Have you been in the hospital since your No No No last visit? Has dressing in place as prescribed Yes Yes Yes Has compression in place as prescribed N/A Yes Yes Has offloadiing in place as prescribed N/A Yes Yes Experienced any changes in pain level or No No No management Left Footwear Slipper Regular Shoe Slipper Right Footwear Slipper No Footwear No Footwear Pain Scale: 0-10 Numeric Is Patient Pain Free? Yes No Yes Rt Foot -Comments tingling 08/13/24 10:32 - Today's Visit Information Type of service Follow-up Visit (Physician/PHOTOVOLTAIC INSTALLATION TECHNICIAN ) Arrival Mode Wheelchair Transfer Assistance Accompanied by SON IN LAW AND SON Patient Identification Verified (Name & Yes ) Patient Requires Transmission-Based Precautions Height and Weight Body Mass Index (BMI) 31.9 BMI Classification Obese Vital Signs Temperature (97.8 F-99.1 F) 96.7 F L Temperature Source Temporal Pulse Rate (60-100) 43 L Pulse Location Monitor Respiratory Rate (12-18) 18 Respiratory rate source Observation Oxygen Delivery Method Room Air Blood Pressure (90/60-120/80) 130/52 H Blood Pressure Mean (mm Hg) 78 Source Monitor Position Sitting Blood Pressure Location Left Arm History Since Last Visit- (Skip if this is Patient's initial visit) Have you changed medications since your No last visit? Any new allergies or adverse reactions No Had a fall/change in ADL's that may No increase risk of falls Signs or symptoms of abuse and/or No neglect since last visit Have you been in the hospital since your No last visit? Has dressing in place as prescribed Yes Has compression in place as prescribed Yes Has offloadiing in place as prescribed N/A Experienced any changes in pain level or No management Left Footwear Regular Shoe Right Footwear Regular Shoe Pain Scale: 0-10 Numeric Is Patient Pain Free? Yes Rt Foot -Comments WC - Nurse 1 - General Ulcer Measurement Start: 07/23/24 09:39 Freq: Status: Active Protocol: Activity Type Activity Date Activity User E-sign Co-sign Detail Recorded Client Recorded Date Recorded By Document 07/23/24 09:39 KW [id number] 07/23/24 09:48 KW Document 07/30/24 14:33 KW [id number] 07/30/24 14:45 KW Document 08/06/24 10:16 DL [id number] 08/06/24 10:26 DL Document 08/13/24 10:32 KW [id number] 08/13/24 10:39 KW 07/23/24 07/30/24 08/06/24 09:39 14:33 10:16 Wound Center Nurse 1 #2 rt HEEL -Current Size (cm) - Length 1.8 2.7 2.1 -Current Size (cm) - Width 1.5 1.4 1.6 -Current Size (cm) - Depth 0.5 1.5 1.1 -Total Square Cm 2.70 3.78 3.36 -Date of Last Picture (Recall this 07/23/24 07/30/24 field) -Photo Taken Yes -Exudate Amt None Present Small Medium -Exudate Type Serosanguineous Serosanguineous -Wound Margin Distinct, Thickened Distinct, Outline Outline Attached Attached -Granulation Amt None Present (0 None Present (0 %) %) -Necrosis Amt Large (67-100%) Large (67-100%) Large (67-100%) -Necrotic Tissue Type Eschar Eschar Adherent Slough -Structure Exposed N/A -Texture (Apurva-wound Skin Appearance) Assessed Assessed Localized Edema ,Scarring -Moisture (Apurva-wound Skin Appearance) Assessed Assessed No Abnormality -Color (Apurva-wound Skin Appearance) Assessed, Assessed, No Abnormality Erythema Erythema -Temperature (Apurva-wound Skin No Abnormality No Abnormality No Abnormality Appearance) (Pt Warm) (Pt Warm) (Pt Warm) -Tenderness on Palpation (Apurva-wound No No No Skin Appearance) -Ulcer Cleansing Soap and Water Soap and Water Soap and Water -Foul Odor after Cleansing No No No -Anesthetic Used 4% Lidocaine 5% Lidocaine 4% Lidocaine Solution Gel Solution #1 RT FT POST-OP -Current Size (cm) - Length 6 5.2 5.3 -Current Size (cm) - Width 10.9 9.5 10 -Current Size (cm) - Depth 2.1 2.6 4.1 -Total Square Cm 65.4 49.40 53.0 -Date of Last Picture (Recall this 07/23/24 07/30/24 field) -Photo Taken Yes -Exudate Amt Small Small Medium -Exudate Type Serosanguineous Serosanguineous Serosanguineous -Wound Margin Thickened & Thickened Distinct, Rolled Under Outline Attached -Granulation Amt Small (1-33%) Small (1-33%) None Present (0 %) -Granulation Quality [place] -Necrosis Amt Large (67-100%) Large (67-100%) Large (67-100%) -Necrotic Tissue Type Eschar Eschar Adherent Slough -Structure Exposed Bone N/A -Texture (Apurva-wound Skin Appearance) Assessed Assessed Localized Edema ,Scarring -Moisture (Apurva-wound Skin Appearance) Assessed Assessed No Abnormality -Color (Apurva-wound Skin Appearance) Assessed Assessed, Erythema Erythema -Temperature (Apurva-wound Skin No Abnormality No Abnormality No Abnormality Appearance) (Pt Warm) (Pt Warm) (Pt Warm) -Tenderness on Palpation (Apurva-wound No No No Skin Appearance) -Ulcer Cleansing Soap and Water Soap and Water Soap and Water -Foul Odor after Cleansing No No No -Anesthetic Used 4% Lidocaine 4% Lidocaine 4% Lidocaine Solution Solution Solution 08/13/24 10:32 Wound Center Nurse 1 #2 rt HEEL -Current Size (cm) - Length 2.5 -Current Size (cm) - Width 1.9 -Current Size (cm) - Depth 1.5 -Total Square Cm 4.75 -Date of Last Picture (Recall this 08/13/24 field) -Photo Taken -Exudate Amt None Present -Exudate Type -Wound Margin Indistinct, Non -Visible -Granulation Amt None Present (0 %) -Necrosis Amt Large (67-100%) -Necrotic Tissue Type Eschar -Structure Exposed -Texture (Apurva-wound Skin Appearance) Assessed -Moisture (Apurva-wound Skin Appearance) Assessed -Color (Apurva-wound Skin Appearance) Assessed, Erythema -Temperature (Apurva-wound Skin No Abnormality Appearance) (Pt Warm) -Tenderness on Palpation (Apurva-wound No Skin Appearance) -Ulcer Cleansing Soap and Water -Foul Odor after Cleansing No -Anesthetic Used 5% Lidocaine Gel #1 RT FT POST-OP -Current Size (cm) - Length 5.9 -Current Size (cm) - Width 9.6 -Current Size (cm) - Depth 3.7 -Total Square Cm 56.64 -Date of Last Picture (Recall this 08/13/24 field) -Photo Taken -Exudate Amt Small -Exudate Type Serosanguineous -Wound Margin Distinct, Outline Attached -Granulation Amt Small (1-33%) -Granulation Quality [place] -Necrosis Amt Large (67-100%) -Necrotic Tissue Type Adherent Slough -Structure Exposed -Texture (Apurva-wound Skin Appearance) Assessed -Moisture (Apurva-wound Skin Appearance) Assessed -Color (Apurva-wound Skin Appearance) Assessed, Erythema -Temperature (Apurva-wound Skin No Abnormality Appearance) (Pt Warm) -Tenderness on Palpation (Apurva-wound No Skin Appearance) -Ulcer Cleansing Soap and Water -Foul Odor after Cleansing No -Anesthetic Used 5% Lidocaine Gel WC - Nurse 2 - General Ulcer CM Notes Start: 07/23/24 09:39 Freq: Status: Active Protocol: Activity Type Activity Date Activity User E-sign Co-sign Detail Recorded Client Recorded Date Recorded By Document 07/23/24 10:32 DS [id number] 07/23/24 10:42 DS Edit Result 07/23/24 10:32 DS (1) [id number] 07/23/24 11:49 DS Document 07/30/24 15:01 JF [id number] 07/30/24 15:09 JF Edit Result 07/30/24 15:01 JF (2) [id number] 07/30/24 15:11 JF Document 08/06/24 11:00 JF [id number] 08/06/24 11:02 JF Document 08/13/24 11:21 JF [id number] 08/13/24 11:23 JF (1) #2 rt HEEL - Time => 10:32 - Correct Patient => Yes - Procedure Performed => No #1 RT FT POST-OP - Injectable Lidocaine (%) => 20 (2) #1 RT FT POST-OP - Post Debridement (cm) - Length => 5.5 - Post Debridement (cm) - Width => 9.5 - Post Debridement (cm) - Depth => 2.6 - Total Square (Post) (cm) => 52.25 - Area of Debridement (cm) - Length => 5.5 - Area of Debridement (cm) - Width => 9.5 - Total Square (Area) (cm) => 52.25 - Debridement, Bone, ea addt'l 20sq cm => 2 or part thereof 07/23/24 07/30/24 08/06/24 10:32 15:01 11:00 Wound Center Nurse 2 #2 rt HEEL -Time 10:32 11:00 -Correct Patient Yes No Yes -Correct Side, Site, Position No Yes -Correct Procedure No Yes -Procedure Performed No No Yes -Type of Procedure Debridement -Clinical Debridement Bone -Tissue Removed Non-viable tissue -Post Debridement (cm) - Length 1.5 -Post Debridement (cm) - Width 1.0 -Post Debridement (cm) - Depth 1.0 -Total Square (Post) (cm) 1.50 -Area of Debridement (cm) - Length 1.5 -Area of Debridement (cm) - Width 1.0 -Total Square (Area) (cm) 1.50 -Tunneling No -Undermining/Tunneling No -Circular Undermining No -Wound/Ulcer Outcome Not Healed Not Healed -Ulcer Cleansing Rinsed/ Irrigated with Saline -Foul Odor after Cleansing No -Bioengineered Tissue No -Bleeding Controlled with Pressure -Treatment Response Procedure Tolerated Well -Offloading No -Debridement - Bone, 1st 20sq cm No #1 RT FT POST-OP -Time 10:32 15:01 11:00 -Correct Patient Yes Yes Yes -Correct Side, Site, Position Yes Yes Yes -Correct Procedure Yes Yes Yes -Procedure Performed Yes Yes Yes -Type of Procedure Debridement Debridement Debridement -Clinical Debridement Bone Bone Bone -Tissue Removed Muscle,Fascia Non-viable Non-viable tissue tissue -Post Debridement (cm) - Length 6.7 5.5 9.0 -Post Debridement (cm) - Width 8.5 9.5 4.5 -Post Debridement (cm) - Depth 2.6 2.6 2.6 -Total Square (Post) (cm) 56.95 52.25 40.50 -Area of Debridement (cm) - Length 6.7 5.5 9.0 -Area of Debridement (cm) - Width 8.5 9.5 4.5 -Total Square (Area) (cm) 56.95 52.25 40.50 -Tunneling No No No -Undermining/Tunneling No No No -Circular Undermining No No No -Wound/Ulcer Outcome Not Healed Not Healed Not Healed -Ulcer Cleansing Rinsed/ Rinsed/ Rinsed/ Irrigated with Irrigated with Irrigated with Saline Saline Saline -Foul Odor after Cleansing No No No -Bioengineered Tissue No No No -Injectable Lidocaine (%) 20 -Bleeding Controlled with Pressure Pressure Pressure -Treatment Response Procedure Procedure Procedure Tolerated Well Tolerated Well Tolerated Well -Offloading No No -Debridement - Bone, 1st 20sq cm Yes Yes Yes -Debridement, Bone, ea addt'l 20sq cm 2 2 2 or part thereof Pain Scale: 0-10 Numeric Is Patient Pain Free? Yes Yes Yes 08/13/24 11:21 Wound Center Nurse 2 #2 rt HEEL -Time 11:22 -Correct Patient Yes -Correct Side, Site, Position Yes -Correct Procedure Yes -Procedure Performed Yes -Type of Procedure Debridement -Clinical Debridement Bone -Tissue Removed Non-viable tissue -Post Debridement (cm) - Length 2.5 -Post Debridement (cm) - Width 2 -Post Debridement (cm) - Depth 1.5 -Total Square (Post) (cm) 5.0 -Area of Debridement (cm) - Length 2.5 -Area of Debridement (cm) - Width 2 -Total Square (Area) (cm) 5.0 -Tunneling No -Undermining/Tunneling No -Circular Undermining No -Wound/Ulcer Outcome Not Healed -Ulcer Cleansing Rinsed/ Irrigated with Saline -Foul Odor after Cleansing No -Bioengineered Tissue No -Bleeding Controlled with Pressure -Treatment Response Procedure Tolerated Well -Offloading No -Debridement - Bone, 1st 20sq cm No #1 RT FT POST-OP -Time 11:22 -Correct Patient Yes -Correct Side, Site, Position Yes -Correct Procedure Yes -Procedure Performed Yes -Type of Procedure Debridement -Clinical Debridement Bone -Tissue Removed Non-viable tissue -Post Debridement (cm) - Length 6 -Post Debridement (cm) - Width 9.6 -Post Debridement (cm) - Depth 3.8 -Total Square (Post) (cm) 57.6 -Area of Debridement (cm) - Length 6.0 -Area of Debridement (cm) - Width 9.6 -Total Square (Area) (cm) 57.60 -Tunneling No -Undermining/Tunneling No -Circular Undermining No -Wound/Ulcer Outcome Not Healed -Ulcer Cleansing Rinsed/ Irrigated with Saline -Foul Odor after Cleansing No -Bioengineered Tissue No -Injectable Lidocaine (%) -Bleeding Controlled with Pressure -Treatment Response Procedure Tolerated Well -Offloading No -Debridement - Bone, 1st 20sq cm Yes -Debridement, Bone, ea addt'l 20sq cm 3 or part thereof Pain Scale: 0-10 Numeric Is Patient Pain Free? Yes WC - Nurse 3 - General Ulcer D/C NN Start: 07/23/24 09:39 Freq: Status: Active Protocol: Activity Type Activity Date Activity User E-sign Co-sign Detail Recorded Client Recorded Date Recorded By Document 07/23/24 10:46 [facility] [id number] 07/23/24 10:47 BMF Document 07/30/24 15:34 BMF [id number] 07/30/24 15:35 BMF Document 08/06/24 11:21 DL [id number] 08/06/24 11:23 DL Document 08/13/24 11:35 BMF [id number] 08/13/24 11:36 BMF 07/23/24 07/30/24 08/06/24 10:46 15:34 11:21 Wound Care Center Nurse 3 #2 rt HEEL -Ulcer Cleansing Rinsed/ Soap and Water Soap and Water Irrigated with Saline -Foul Odor after Cleansing No No No -Other Dressing betadine paint betadine moist dakins per lois rn gauze -Primary Dressing Covered/Secured with Dry Gauze & Dry Gauze & Dry Gauze & Roll Gauze, Roll Gauze, Roll Gauze, Secured with Secured with Secured with Tape Tape Tape -Other Covering heel hat heel hat #1 RT FT POST-OP -Ulcer Cleansing Rinsed/ Soap and Water Soap and Water Irrigated with Saline -Foul Odor after Cleansing No No No -Other Dressing dakins moist dakins moist dakins gauze gauze -Primary Dressing Covered/Secured with Dry Gauze & Dry Gauze & Dry Gauze & Roll Gauze, Roll Gauze, Roll Gauze, Secured with Secured with Secured with Tape Tape Tape -Other Covering drsg per lois rn abd Treatment Response Procedure Procedure Procedure Tolerated Well Tolerated Well Tolerated Well Pain Scale: 0-10 Numeric Is Patient Pain Free? Yes Yes Yes WC - Visit Discharge Discharge Condition Stable Stable Stable Ambulatory Status Wheelchair Ambulatory, Wheelchair Wheelchair Transportation ecf Private Auto Private Auto Accompanied by son and son in law Facility Type Environmental Services Worker Care Environmental Services Worker Care Shelter Care Facility Facility Facility Orders Sent Yes 08/13/24 11:35 Wound Care Center Nurse 3 #2 rt HEEL -Ulcer Cleansing Soap and Water -Foul Odor after Cleansing No -Other Dressing dakins, heel hat -Primary Dressing Covered/Secured with Dry Gauze & Roll Gauze, Secured with Tape -Other Covering #1 RT FT POST-OP -Ulcer Cleansing Soap and Water -Foul Odor after Cleansing No -Other Dressing dakins, abd, -Primary Dressing Covered/Secured with Dry Gauze & Roll Gauze, Secured with Tape -Other Covering Treatment Response Pain Scale: 0-10 Numeric Is Patient Pain Free? Yes WC - Visit Discharge Discharge Condition Stable Ambulatory Status Wheelchair Transportation Accompanied by son and son in law Facility Type Environmental Services Worker Care Facility Orders Sent Assessment/Plan Assessment/Plan (1) PAD (peripheral artery disease): CODE(S): I73.9 - Peripheral vascular disease, unspecified (2) Osteomyelitis of right foot: CODE(S): M86.9 - Osteomyelitis, unspecified QUALIFIERS: Osteomyelitis type: other chronic Qualified Code(s): M86.671 - Other chronic osteomyelitis, right ankle and foot (3) Diabetic infection of right foot: CODE(S): E11.628 - Type 2 diabetes mellitus with other skin complications; L08.9 - Local infection of the skin and subcutaneous tissue, unspecified (4) Wound, open, foot: CODE(S): S91.309A - Unspecified open wound, unspecified foot, initial encounter PLAN: Plan I talked to the patient and his adult son and dee extensively about the condition of the right lower extremity and the residual foot status post transmetatarsal amputation by podiatry. I had a discussion today with vascular surgery (Dr. White, [facility]). He recommended that they do reschedule their appointment with vascular surgery to evaluate arch interventions to the foot to improve blood flow and healing. Dr. White does feel that at this point he could heal a BKA well. We talked extensively about the options of continued limb salvage versus amputation. I talked to Mr. Thompson and his adult sons about the increase in energy expenditure with an amputation, and how salvaging his foot, regardless the condition of the foot as long as it is healed, is likely better for him than an attempted amputation and a prosthetic. 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 I talked him about the issues with wound healing. I talked about the options of another debridement with vera flow wound VAC therapy, followed by further attempts at reconstruction once better blood flow is reestablished. Plan to follow-up with me following vascular surgery consultation at Continue Dakin's wet-to-dry dressings twice daily PLAN FROM 31 July 2024: We talked again today about limb salvage v amputation v palliative care options. I had a conversation with vascular surgery at [facility] who recommended that the patient see vascular surgery at (for pedal arch interventions) before any amputation. The family and patient are adamant that they do not want to do amputation at this time and would like to continue attempts at salvage and meet with vascular surgery before considering other options such as below-knee amputation. I offered/suggested for them to see podiatry for wound care until the vascular surgeons finalize there plan, and they wanted to continue to come to plastics for wound care. Plan to follow-up with me next week for wound care/check on wound and prevent/monitor for acute infection developing. Continue Dakin's wet-to-dry dressings twice daily. Betadine paint to the calf wound eschar to keep dry twice daily Discussed concerning signs/symptoms of acute/ascending infection (and wet gangrene) with the family and the patient, discussing return precautions/what to look for that would signal a need for ED evaluation. Plan from 06 August 2024: Reiterated above risks, benefits, and alternatives to continued limb salvage. I discussed with the patient and his sons that today would be reasonable stopping limb salvage (if they wanted a below-knee amputation today, I think it would be reasonable to schedule). They are adamant about continued limb salvage and would like to keep their appointment with vascular surgery for potential improvement of pedal arch flow, which is scheduled for early August. Patient and his sons happy with plan to follow-up in the wound care center weekly for wound checks and debridement as needed so as to prevent a severe foot infection from developing. Follow-up in 1 week Plan from 13 August 2024: Again discussed with them risks, benefits, and alteratives to limb salvage, and discussed how now would be an acceptable stopping point (amputation), but that since the patient and family are desiring consult with vascular, seems reasonable to see what they say next week to see if there are options. I offered to see Mr. Thompson in 2 weeks (since they're seeing vascular next week, and seems like a lot to coordinate given dialysis schedule), but they would like to see us for continuity of care and wound check on Tuesday. F/u in 1 week. Continue current wound care regimen.
[2024-08-20 10:36] VITALS: BP 123/39; PULSE 42; RESP 16; TEMP 36.3; BMI 31.9
--- NOTE | 2024-08-20 13:59 | PCM.WC.PN ---
History of Present Illness Date of Service: 08/20/24 Chief Complaint: R 1st digit amputation site, R 2nd toe ulceration History of Wound: Rohit Marvin is an 89-year-old male with complicated past medical history including severe type 2 diabetes that is better controlled now with hemoglobin A1c of 6 as well as peripheral vascular disease status post right lower extremity vascular interventions for nonhealing right foot wounds. 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 He was recently admitted for cellulitis/infection this past week, and missed a referral appointment to a vascular surgeon at to discuss arch flow improvement as his posterior tibial artery stops at the ankle and the peroneal and anterior tibial arteries do not perfuse the location where he needs flow. Patient denies constitutional symptoms. Patient denies pain. Patient has been maintaining nonweightbearing status at his SNF has been compliant with treatment thus far. No other complaints. Endorses good dressing changes. Subjective Subjective 31 July 2024: Here for follow of right TMA wound. They have been having difficulty coordinating appointment with vascular surgery at [facility] for the pedal arch consultation as the dialysis schedule of Tuesday makes this a challenge. They are continuing wet-to-dry dressings twice daily as well as Betadine paint to the eschar on the heel. Patient and his sons report adequate pressure offloading. 06 August 2024: Here for follow up of the wound. Family and the patient still adamant about attempt at limb salvage (coordinating appointment with vascular surgery). He was sent to [facility] last on Tue for a wound check and was promptly sent back to the SNF. 13 August 2024: No significant changes. Has appointment with vascular surgery on 22 August 2024 (next week). Current encounter, 20 August 2024: No significant changes in the wound since last seen in the wound care center. Patient has been doing well with dressing changes. Patient's adult sons here with the patient at today's visit. Patient and his sons report that they have had a family meeting. They have decided to cancel their appointment with the vascular surgery team and would like to pursue amputation. Patient, Mr. Thompson, is adamant that this is what he wants (that is, definitive management with a right lower extremity amputation). Objective Data Objective Data Vital Signs: Vital Signs Temp Pulse Resp BP O2 Del Method 97.4 F L 42 L 16 123/39 H Room Air 08/20/24 10:36 08/20/24 10:36 08/20/24 10:36 08/20/24 10:36 08/13/24 10:32 Oxygen Delivery Method Room Air Weight: 204 lb Body Mass Index (BMI) 31.9 Charges/Coding Procedures Integumentary 111xxx-113xx: [id number] Emilie bone 20 sq cm/< Add On Codes: 44674 Emilie bone add-on (x 2 units ) Physical Exam Narrative RIGHT LOWER Extremity Inspection: Persistent necrotic tissue and bone at the base of the right lower extremity transmetatarsal amputation wound with exposed tarsal bones that have minimal granulation tissue. This wound measures 9.5 x 5.5 cm and is 3 cm deep. No purulent drainage. There is also a full-thickness 2x 2 cm and 1.5 cm deep lateral calcaneus wound that is now open and without drainage. These are my personal measurements (other measurements of this document may have been taken by nursing staff, and vary based on subtle differences in orientation). Palpation: No palpable fluid collections Motor: He is able to flex and dorsiflex his ankle slightly with minimal strength Sensory: Intact to light touch on the plantar surface of the foot Vascular: I cannot palpate pulses, but skin edges appear warm and blood with debridement. Const alert and oriented x3 Eyes EOMs intact bilaterally Resp normal respiratory effort and clear to auscultation bilaterally Cardio regular rate Cardio Narrative: I heard a systolic murmur between S1 and S2 Debridement Note Debridement Note Wound debrided: Right lower extremity transmetatarsal amputation wound Laterality: Right Wound Grade/Stage: Stage IV down to tarsal bones Type of Debridement: Excisional debridement Anesthesia Used: 4% Lidocaine Solution and - (1% lidocaine with 1-200,000 epinephrine, 10 cc total) Depth: to bone (Necrotic bone was at the base of the wound (necrotic sequestrum and bone fragments from the tarsal bones)) Percentage of wound debrided: 100 Instrument Used: 7mm curette, Forceps and - (And scissors for sharp excision) Tissue Removed: Necrotic plantar fascia and necrotic tendon. Necrotic bone/sequestrum Severity: Necrosis of Bone (See above. Active osteomyelitis) Amount of bleeding with debridement: Moderate Bleeding Controlled with: Pressure and - (Local solution with epinephrine) Patient tolerated procedure: Patient tolerated procedure well Debridement Free Text: Additional wound was debrided today as well Right plantar wound, 2 x 2 cm Excised with scissors and forceps for sharp excision down to healthy bleeding tissue. There is necrotic plantar fascia. This tissue was down to the calcaneal bone. Patient tolerated the procedure well. Hemostasis was obtained with pressure and the 1% lidocaine with 1-200,000 epinephrine solution as noted above. Post-Debridement Measurements and Additional Note: Post-Debridement Measurements/Treatment - Nurse 1 - General Ulcer Assessment Start: 07/23/24 09:39 Freq: Status: Active Protocol: [employer] Activity Type Activity Date Activity User E-sign Co-sign Detail Recorded Client Recorded Date Recorded By Document 07/23/24 09:39 KW [id number] 07/23/24 09:48 KW Document 07/30/24 14:33 KW [id number] 07/30/24 14:45 KW Document 08/06/24 10:16 DL [id number] 08/06/24 10:26 DL Document 08/13/24 10:32 KW [id number] 08/13/24 10:39 KW Document 08/20/24 10:36 DL [id number] 08/20/24 10:41 DL 07/23/24 07/30/24 08/06/24 09:39 14:33 10:16 - Today's Visit Information Type of service Follow-up Visit Follow-up Visit Follow-up Visit (Physician/SHEET METAL SMITH (Physician/SHEET METAL SMITH (Physician/SHEET METAL SMITH ) ) ) Arrival Mode Wheelchair Wheelchair Wheelchair Transfer Assistance None Accompanied by son in law and sons son Patient Identification Verified (Name & Yes Yes Yes ) Patient Requires Transmission-Based No Precautions Height and Weight Body Mass Index (BMI) 31.9 31.9 31.9 BMI Classification Obese Obese Obese Vital Signs Temperature (97.8 F-99.1 F) 96.9 F L 97.1 F L 97.8 F Temperature Source Temporal Temporal Temporal Pulse Rate (60-100) 56 L 45 L 60 Pulse Location Monitor Monitor Monitor Respiratory Rate (12-18) 18 16 18 Respiratory rate source Observation Observation Observation Oxygen Delivery Method Room Air Room Air Blood Pressure (90/60-120/80) 126/42 H 129/68 H 110/50 L Blood Pressure Mean (mm Hg) 70 88 70 Source Monitor Monitor Monitor Position Semi-Fowlers Sitting Blood Pressure Location Left Arm Right Arm History Since Last Visit- (Skip if this is Patient's initial visit) Have you changed medications since your No No No last visit? Any new allergies or adverse reactions No No No Had a fall/change in ADL's that may No No No increase risk of falls Signs or symptoms of abuse and/or No No No neglect since last visit Have you been in the hospital since your No No No last visit? Has dressing in place as prescribed Yes Yes Yes Has compression in place as prescribed N/A Yes Yes Has offloadiing in place as prescribed N/A Yes Yes Experienced any changes in pain level or No No No management Left Footwear Slipper Regular Shoe Slipper Right Footwear Slipper No Footwear No Footwear Pain Scale: 0-10 Numeric Is Patient Pain Free? Yes No Yes Rt Foot -Comments tingling 08/13/24 08/20/24 10:32 10:36 WC - Today's Visit Information Type of service Follow-up Visit Follow-up Visit (Physician/SHEET METAL SMITH (Physician/SHEET METAL SMITH ) ) Arrival Mode Wheelchair Wheelchair Transfer Assistance None Accompanied by SON IN LAW AND SON Patient Identification Verified (Name & Yes Yes ) Patient Requires Transmission-Based No Precautions Height and Weight Body Mass Index (BMI) 31.9 31.9 BMI Classification Obese Obese Vital Signs Temperature (97.8 F-99.1 F) 96.7 F L 97.4 F L Temperature Source Temporal Temporal Pulse Rate (60-100) 43 L 42 L Pulse Location Monitor Monitor Respiratory Rate (12-18) 18 16 Respiratory rate source Observation Observation Oxygen Delivery Method Room Air Blood Pressure (90/60-120/80) 130/52 H 123/39 H Blood Pressure Mean (mm Hg) 78 67 Source Monitor Position Sitting Blood Pressure Location Left Arm History Since Last Visit- (Skip if this is Patient's initial visit) Have you changed medications since your No No last visit? Any new allergies or adverse reactions No No Had a fall/change in ADL's that may No No increase risk of falls Signs or symptoms of abuse and/or No No neglect since last visit Have you been in the hospital since your No No last visit? Has dressing in place as prescribed Yes Yes Has compression in place as prescribed Yes N/A Has offloadiing in place as prescribed N/A Yes Experienced any changes in pain level or No No management Left Footwear Regular Shoe Right Footwear Regular Shoe Pain Scale: 0-10 Numeric Is Patient Pain Free? Yes Yes Rt Foot -Comments WC - Nurse 1 - General Ulcer Measurement Start: 07/23/24 09:39 Freq: Status: Active Protocol: Activity Type Activity Date Activity User E-sign Co-sign Detail Recorded Client Recorded Date Recorded By Document 07/23/24 09:39 KW [id number] 07/23/24 09:48 KW Document 07/30/24 14:33 KW [id number] 07/30/24 14:45 KW Document 08/06/24 10:16 DL [id number] 08/06/24 10:26 DL Document 08/13/24 10:32 KW [id number] 08/13/24 10:39 KW Document 08/20/24 10:36 DL [id number] 08/20/24 10:41 DL 07/23/24 07/30/24 08/06/24 09:39 14:33 10:16 Wound Center Nurse 1 #2 rt HEEL -Current Size (cm) - Length 1.8 2.7 2.1 -Current Size (cm) - Width 1.5 1.4 1.6 -Current Size (cm) - Depth 0.5 1.5 1.1 -Total Square Cm 2.70 3.78 3.36 -Date of Last Picture (Recall this 07/23/24 07/30/24 field) -Photo Taken Yes -Exudate Amt None Present Small Medium -Exudate Type Serosanguineous Serosanguineous -Wound Margin Distinct, Thickened Distinct, Outline Outline Attached Attached -Granulation Amt None Present (0 None Present (0 %) %) -Necrosis Amt Large (67-100%) Large (67-100%) Large (67-100%) -Necrotic Tissue Type Eschar Eschar Adherent Slough -Structure Exposed N/A -Texture (Apurva-wound Skin Appearance) Assessed Assessed Localized Edema ,Scarring -Moisture (Apurva-wound Skin Appearance) Assessed Assessed No Abnormality -Color (Apurva-wound Skin Appearance) Assessed, Assessed, No Abnormality Erythema Erythema -Temperature (Apurva-wound Skin No Abnormality No Abnormality No Abnormality Appearance) (Pt Warm) (Pt Warm) (Pt Warm) -Tenderness on Palpation (Apurva-wound No No No Skin Appearance) -Ulcer Cleansing Soap and Water Soap and Water Soap and Water -Foul Odor after Cleansing No No No -Anesthetic Used 4% Lidocaine 5% Lidocaine 4% Lidocaine Solution Gel Solution #1 RT FT POST-OP -Current Size (cm) - Length 6 5.2 5.3 -Current Size (cm) - Width 10.9 9.5 10 -Current Size (cm) - Depth 2.1 2.6 4.1 -Total Square Cm 65.4 49.40 53.0 -Date of Last Picture (Recall this 07/23/24 07/30/24 field) -Photo Taken Yes -Exudate Amt Small Small Medium -Exudate Type Serosanguineous Serosanguineous Serosanguineous -Wound Margin Thickened & Thickened Distinct, Rolled Under Outline Attached -Granulation Amt Small (1-33%) Small (1-33%) None Present (0 %) -Granulation Quality [place] -Necrosis Amt Large (67-100%) Large (67-100%) Large (67-100%) -Necrotic Tissue Type Eschar Eschar Adherent Slough -Structure Exposed Bone N/A -Texture (Apurva-wound Skin Appearance) Assessed Assessed Localized Edema ,Scarring -Moisture (Apurva-wound Skin Appearance) Assessed Assessed No Abnormality -Color (Apurva-wound Skin Appearance) Assessed Assessed, Erythema Erythema -Temperature (Apurva-wound Skin No Abnormality No Abnormality No Abnormality Appearance) (Pt Warm) (Pt Warm) (Pt Warm) -Tenderness on Palpation (Apurva-wound No No No Skin Appearance) -Ulcer Cleansing Soap and Water Soap and Water Soap and Water -Foul Odor after Cleansing No No No -Anesthetic Used 4% Lidocaine 4% Lidocaine 4% Lidocaine Solution Solution Solution 08/13/24 08/20/24 10:32 10:36 Wound Center Nurse 1 #2 rt HEEL -Current Size (cm) - Length 2.5 2.4 -Current Size (cm) - Width 1.9 2 -Current Size (cm) - Depth 1.5 1.5 -Total Square Cm 4.75 4.8 -Date of Last Picture (Recall this 08/13/24 field) -Photo Taken Yes -Exudate Amt None Present None Present -Exudate Type -Wound Margin Indistinct, Non Thickened -Visible -Granulation Amt None Present (0 None Present (0 %) %) -Necrosis Amt Large (67-100%) Large (67-100%) -Necrotic Tissue Type Eschar Eschar -Structure Exposed N/A -Texture (Apurva-wound Skin Appearance) Assessed Localized Edema ,Scarring -Moisture (Apurva-wound Skin Appearance) Assessed No Abnormality -Color (Apurva-wound Skin Appearance) Assessed, Erythema Erythema -Temperature (Apurva-wound Skin No Abnormality No Abnormality Appearance) (Pt Warm) (Pt Warm) -Tenderness on Palpation (Apurva-wound No No Skin Appearance) -Ulcer Cleansing Soap and Water Soap and Water -Foul Odor after Cleansing No No -Anesthetic Used 5% Lidocaine 4% Lidocaine Gel Solution #1 RT FT POST-OP -Current Size (cm) - Length 5.9 5 -Current Size (cm) - Width 9.6 9.5 -Current Size (cm) - Depth 3.7 3.9 -Total Square Cm 56.64 47.5 -Date of Last Picture (Recall this 08/13/24 field) -Photo Taken Yes -Exudate Amt Small Medium -Exudate Type Serosanguineous Serosanguineous -Wound Margin Distinct, Distinct, Outline Outline Attached Attached -Granulation Amt Small (1-33%) None Present (0 %) -Granulation Quality [place] -Necrosis Amt Large (67-100%) Large (67-100%) -Necrotic Tissue Type Adherent Slough Adherent Slough -Structure Exposed N/A -Texture (Apurva-wound Skin Appearance) Assessed Localized Edema ,Scarring -Moisture (Apurva-wound Skin Appearance) Assessed No Abnormality -Color (Apurva-wound Skin Appearance) Assessed, Erythema,Rubor Erythema -Temperature (Apurva-wound Skin No Abnormality No Abnormality Appearance) (Pt Warm) (Pt Warm) -Tenderness on Palpation (Apurva-wound No No Skin Appearance) -Ulcer Cleansing Soap and Water Soap and Water -Foul Odor after Cleansing No No -Anesthetic Used 5% Lidocaine 4% Lidocaine Gel Solution WC - Nurse 2 - General Ulcer CM Notes Start: 07/23/24 09:39 Freq: Status: Active Protocol: Activity Type Activity Date Activity User E-sign Co-sign Detail Recorded Client Recorded Date Recorded By Document 07/23/24 10:32 DS [id number] 07/23/24 10:42 DS Edit Result 07/23/24 10:32 DS (1) [id number] 07/23/24 11:49 DS Document 07/30/24 15:01 JF [id number] 07/30/24 15:09 JF Edit Result 07/30/24 15:01 JF (2) [id number] 07/30/24 15:11 JF Document 08/06/24 11:00 JF [id number] 08/06/24 11:02 JF Document 08/13/24 11:21 JF [id number] 08/13/24 11:23 JF Document 08/20/24 11:22 DS [id number] 08/20/24 11:38 DS (1) #2 rt HEEL - Time => 10:32 - Correct Patient => Yes - Procedure Performed => No #1 RT FT POST-OP - Injectable Lidocaine (%) => 20 (2) #1 RT FT POST-OP - Post Debridement (cm) - Length => 5.5 - Post Debridement (cm) - Width => 9.5 - Post Debridement (cm) - Depth => 2.6 - Total Square (Post) (cm) => 52.25 - Area of Debridement (cm) - Length => 5.5 - Area of Debridement (cm) - Width => 9.5 - Total Square (Area) (cm) => 52.25 - Debridement, Bone, ea addt'l 20sq cm => 2 or part thereof 07/23/24 07/30/24 08/06/24 10:32 15:01 11:00 Wound Center Nurse 2 #2 rt HEEL -Time 10:32 11:00 -Correct Patient Yes No Yes -Correct Side, Site, Position No Yes -Correct Procedure No Yes -Procedure Performed No No Yes -Type of Procedure Debridement -Clinical Debridement Bone -Tissue Removed Non-viable tissue -Post Debridement (cm) - Length 1.5 -Post Debridement (cm) - Width 1.0 -Post Debridement (cm) - Depth 1.0 -Total Square (Post) (cm) 1.50 -Area of Debridement (cm) - Length 1.5 -Area of Debridement (cm) - Width 1.0 -Total Square (Area) (cm) 1.50 -Tunneling No -Undermining/Tunneling No -Circular Undermining No -Wound/Ulcer Outcome Not Healed Not Healed -Ulcer Cleansing Rinsed/ Irrigated with Saline -Foul Odor after Cleansing No -Bioengineered Tissue No -Bleeding Controlled with Pressure -Treatment Response Procedure Tolerated Well -Offloading No -Debridement - Bone, 1st 20sq cm No -Debridement, Bone, ea addt'l 20sq cm or part thereof #1 RT FT POST-OP -Time 10:32 15:01 11:00 -Correct Patient Yes Yes Yes -Correct Side, Site, Position Yes Yes Yes -Correct Procedure Yes Yes Yes -Procedure Performed Yes Yes Yes -Type of Procedure Debridement Debridement Debridement -Clinical Debridement Bone Bone Bone -Tissue Removed Muscle,Fascia Non-viable Non-viable tissue tissue -Post Debridement (cm) - Length 6.7 5.5 9.0 -Post Debridement (cm) - Width 8.5 9.5 4.5 -Post Debridement (cm) - Depth 2.6 2.6 2.6 -Total Square (Post) (cm) 56.95 52.25 40.50 -Area of Debridement (cm) - Length 6.7 5.5 9.0 -Area of Debridement (cm) - Width 8.5 9.5 4.5 -Total Square (Area) (cm) 56.95 52.25 40.50 -Tunneling No No No -Undermining/Tunneling No No No -Circular Undermining No No No -Wound/Ulcer Outcome Not Healed Not Healed Not Healed -Ulcer Cleansing Rinsed/ Rinsed/ Rinsed/ Irrigated with Irrigated with Irrigated with Saline Saline Saline -Foul Odor after Cleansing No No No -Bioengineered Tissue No No No -Injectable Lidocaine (%) 20 -Injectable Lidocaine w/ Epi (%) -Injectable Lidocaine w/ Epi (mls) -Bleeding Controlled with Pressure Pressure Pressure -Treatment Response Procedure Procedure Procedure Tolerated Well Tolerated Well Tolerated Well -Offloading No No -Debridement - Bone, 1st 20sq cm Yes Yes Yes -Debridement, Bone, ea addt'l 20sq cm 2 2 2 or part thereof Pain Scale: 0-10 Numeric Is Patient Pain Free? Yes Yes Yes 08/13/24 08/20/24 11:21 11:22 Wound Center Nurse 2 #2 rt HEEL -Time 11:22 11:22 -Correct Patient Yes Yes -Correct Side, Site, Position Yes Yes -Correct Procedure Yes Yes -Procedure Performed Yes Yes -Type of Procedure Debridement Debridement -Clinical Debridement Bone Bone -Tissue Removed Non-viable Subcutaneous, tissue Fascia -Post Debridement (cm) - Length 2.5 3.0 -Post Debridement (cm) - Width 2 2.0 -Post Debridement (cm) - Depth 1.5 0.1 -Total Square (Post) (cm) 5.0 6.00 -Area of Debridement (cm) - Length 2.5 3.0 -Area of Debridement (cm) - Width 2 2.0 -Total Square (Area) (cm) 5.0 6.00 -Tunneling No -Undermining/Tunneling No -Circular Undermining No -Wound/Ulcer Outcome Not Healed Not Healed -Ulcer Cleansing Rinsed/ Rinsed/ Irrigated with Irrigated with Saline Saline -Foul Odor after Cleansing No No -Bioengineered Tissue No No -Bleeding Controlled with Pressure Pressure -Treatment Response Procedure Procedure Tolerated Well Tolerated Well -Offloading No -Debridement - Bone, 1st 20sq cm No Yes -Debridement, Bone, ea addt'l 20sq cm 2 or part thereof #1 RT FT POST-OP -Time 11:22 11:22 -Correct Patient Yes Yes -Correct Side, Site, Position Yes Yes -Correct Procedure Yes Yes -Procedure Performed Yes Yes -Type of Procedure Debridement Debridement -Clinical Debridement Bone Bone -Tissue Removed Non-viable Subcutaneous, tissue Fascia -Post Debridement (cm) - Length 6 5.5 -Post Debridement (cm) - Width 9.6 9.5 -Post Debridement (cm) - Depth 3.8 0.1 -Total Square (Post) (cm) 57.6 52.25 -Area of Debridement (cm) - Length 6.0 5.5 -Area of Debridement (cm) - Width 9.6 9.5 -Total Square (Area) (cm) 57.60 52.25 -Tunneling No -Undermining/Tunneling No -Circular Undermining No -Wound/Ulcer Outcome Not Healed Not Healed -Ulcer Cleansing Rinsed/ Rinsed/ Irrigated with Irrigated with Saline Saline -Foul Odor after Cleansing No No -Bioengineered Tissue No No -Injectable Lidocaine (%) -Injectable Lidocaine w/ Epi (%) 1 -Injectable Lidocaine w/ Epi (mls) 10 -Bleeding Controlled with Pressure Pressure -Treatment Response Procedure Procedure Tolerated Well Tolerated Well -Offloading No -Debridement - Bone, 1st 20sq cm Yes No -Debridement, Bone, ea addt'l 20sq cm 3 or part thereof Pain Scale: 0-10 Numeric Is Patient Pain Free? Yes Yes WC - Nurse 3 - General Ulcer D/C NN Start: 07/23/24 09:39 Freq: Status: Active Protocol: Activity Type Activity Date Activity User E-sign Co-sign Detail Recorded Client Recorded Date Recorded By Document 07/23/24 10:46 BMF [id number] 07/23/24 10:47 BMF Document 07/30/24 15:34 BMF [id number] 07/30/24 15:35 BMF Document 08/06/24 11:21 DL [id number] 08/06/24 11:23 DL Document 08/13/24 11:35 BMF [id number] 08/13/24 11:36 BMF Document 08/20/24 11:39 KW [id number] 08/20/24 11:40 KW 07/23/24 07/30/24 08/06/24 10:46 15:34 11:21 Wound Care Center Nurse 3 #2 rt HEEL -Ulcer Cleansing Rinsed/ Soap and Water Soap and Water Irrigated with Saline -Foul Odor after Cleansing No No No -Other Dressing betadine paint betadine moist dakins per lois rn gauze -Primary Dressing Covered/Secured with Dry Gauze & Dry Gauze & Dry Gauze & Roll Gauze, Roll Gauze, Roll Gauze, Secured with Secured with Secured with Tape Tape Tape -Other Covering heel hat heel hat #1 RT FT POST-OP -Ulcer Cleansing Rinsed/ Soap and Water Soap and Water Irrigated with Saline -Foul Odor after Cleansing No No No -Other Dressing dakins moist dakins moist dakins gauze gauze -Primary Dressing Covered/Secured with Dry Gauze & Dry Gauze & Dry Gauze & Roll Gauze, Roll Gauze, Roll Gauze, Secured with Secured with Secured with Tape Tape Tape -Other Covering drsg per lois rn abd Treatment Response Procedure Procedure Procedure Tolerated Well Tolerated Well Tolerated Well Pain Scale: 0-10 Numeric Is Patient Pain Free? Yes Yes Yes WC - Visit Discharge Discharge Condition Stable Stable Stable Ambulatory Status Wheelchair Ambulatory, Wheelchair Wheelchair Transportation ecf Private Auto Private Auto Accompanied by son and son in law Medication Reconcilliation completed & provided to patient/care provider Clinical Summary of Care Provided [facility] Facility Facility Orders Sent Yes 08/13/24 08/20/24 11:35 11:39 Wound Care Center Nurse 3 #2 rt HEEL -Ulcer Cleansing Soap and Water -Foul Odor after Cleansing No -Other Dressing dakins, heel dakins hat -Primary Dressing Covered/Secured with Dry Gauze & Dry Gauze & Roll Gauze, Roll Gauze, Secured with Secured with Tape Tape -Other Covering #1 RT FT POST-OP -Ulcer Cleansing Soap and Water -Foul Odor after Cleansing No -Other Dressing dakins, abd, dakins -Primary Dressing Covered/Secured with Dry Gauze & Dry Gauze Roll Gauze, Secured with Tape -Other Covering Treatment Response Pain Scale: 0-10 Numeric Is Patient Pain Free? Yes Yes WC - Visit Discharge Discharge Condition Stable Stable Ambulatory Status Wheelchair Wheelchair Transportation Accompanied by son and son in law Medication Reconcilliation completed & No provided to patient/care provider Clinical Summary of Care Provided Yes Facility Type [facility] Facility Orders Sent Assessment/Plan Assessment/Plan (1) PAD (peripheral artery disease): CODE(S): I73.9 - Peripheral vascular disease, unspecified (2) Osteomyelitis of right foot: CODE(S): M86.9 - Osteomyelitis, unspecified QUALIFIERS: Osteomyelitis type: other chronic Qualified Code(s): M86.671 - Other chronic osteomyelitis, right ankle and foot (3) Diabetic infection of right foot: CODE(S): E11.628 - Type 2 diabetes mellitus with other skin complications; L08.9 - Local infection of the skin and subcutaneous tissue, unspecified (4) Wound, open, foot: CODE(S): S91.309A - Unspecified open wound, unspecified foot, initial encounter PLAN: Plan I talked to the patient and his adult son and angelon extensively about the condition of the right lower extremity and the residual foot status post transmetatarsal amputation by podiatry. I had a discussion today with vascular surgery (Dr. White, [facility]). He recommended that they do reschedule their appointment with vascular surgery to evaluate arch interventions to the foot to improve blood flow and healing. Dr. White does feel that at this point he could heal a BKA well. We talked extensively about the options of continued limb salvage versus amputation. I talked to Mr. Thompson and his adult sons about the increase in energy expenditure with an amputation, and how salvaging his foot, regardless the condition of the foot as long as it is healed, is likely better for him than an attempted amputation and a prosthetic. 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 I talked him about the issues with wound healing. I talked about the options of another debridement with vera flow wound VAC therapy, followed by further attempts at reconstruction once better blood flow is reestablished. Plan to follow-up with me following vascular surgery consultation at Continue Dakin's wet-to-dry dressings twice daily PLAN FROM 31 July 2024: We talked again today about limb salvage v amputation v palliative care options. I had a conversation with vascular surgery at [facility] who recommended that the patient see vascular surgery at (for pedal arch interventions) before any amputation. The family and patient are adamant that they do not want to do amputation at this time and would like to continue attempts at salvage and meet with vascular surgery before considering other options such as below-knee amputation. I offered/suggested for them to see podiatry for wound care until the vascular surgeons finalize there plan, and they wanted to continue to come to plastics for wound care. Plan to follow-up with me next week for wound care/check on wound and prevent/monitor for acute infection developing. Continue Dakin's wet-to-dry dressings twice daily. Betadine paint to the calf wound eschar to keep dry twice daily Discussed concerning signs/symptoms of acute/ascending infection (and wet gangrene) with the family and the patient, discussing return precautions/what to look for that would signal a need for ED evaluation. Plan from 06 August 2024: Reiterated above risks, benefits, and alternatives to continued limb salvage. I discussed with the patient and his sons that today would be reasonable stopping limb salvage (if they wanted a below-knee amputation today, I think it would be reasonable to schedule). They are adamant about continued limb salvage and would like to keep their appointment with vascular surgery for potential improvement of pedal arch flow, which is scheduled for early August. Patient and his sons happy with plan to follow-up in the wound care center weekly for wound checks and debridement as needed so as to prevent a severe foot infection from developing. Follow-up in 1 week Plan from 13 August 2024: Again discussed with them risks, benefits, and alteratives to limb salvage, and discussed how now would be an acceptable stopping point (amputation), but that since the patient and family are desiring consult with vascular, seems reasonable to see what they say next week to see if there are options. I offered to see Mr. Thompson in 2 weeks (since they're seeing vascular next week, and seems like a lot to coordinate given dialysis schedule), but they would like to see us for continuity of care and wound check on Tuesday. F/u in 1 week. Continue current wound care regimen. PLAN FROM 20 AUGUST 2024: Discussed with the patient and his family extensively the risks, benefits, and alternatives to limb salvage versus amputation and they are in agreement that amputation is the best next step. I have spoken with Dr. Earl White on the phone from vascular surgery and we will perform the amputation together, with him as the primary surgeon and he is assisting surgeon. I spoke with the patient and his family extensively in previous visits about increased energy expenditure from amputations and the effect that this can have on overall physiology and the patient's heart. They understand this and are in agreement. They understand that it may be difficult for the patient to walk with a prosthetic. I talked to the patient and his family about residual nerve pain and phantom nerve pain as risks of lower extremity amputation. I talked to them about targeted muscle reinnervation versus regenerative peripheral nerve interface as a modality to prevent these problems. I talked to them about there being no guarantees that this will prevent this, but studies have shown that it can help; however, I talked to them about limited data concerning variables such as diabetic peripheral neuropathy and vascular disease and how these may influence the outcomes. I spoke to them about risks of increased operative time and the risk of anesthesia including stroke and . They understand these risks. We will likely try to limit OR time and perform these interventions of possible in a very timely manner to limit the amount of anesthesia time given the patient's comorbidities. Furthermore we talked about the risks of bleeding, infection, damage to surrounding structures, perioperative complications from electrolyte abnormalities, wound healing problems following the amputation, and again the complications of anesthesia. I have contacted anesthesia ahead of time (Dr. Itz Mahan) about this case and we will coordinate so as to optimize the patient preoperativel for an elective right lower extremity below-knee amputation. Plan for Dakin's wet-to-dry dressings twice daily with pressure offloading until then. We will schedule for right lower extremity amputation (below-knee amputation)
--- NOTE | 2024-08-21 11:29 | WC ---
PHOTO 08/20/24 RIGHT FOOT POST OP
--- NOTE | 2024-08-21 11:30 | WC ---
PHOTO 08/20/24 RIGHT HEEL
--- NOTE | 2024-08-21 11:31 | WC ---
PHOTO 08/20/24 RIGHT HEEL
== END 2024-08-20 23:59 | disposition skilled nursing facility (03) ==
LOC: WC 10:30
PROVIDERS: PCP Internal Medicine; Referring Provider Student in an Organized Health Care Education/Training Program; Visit Provider Surgery Plastic and Reconstructive Surgery
DX: E11.69 Type 2 diabetes mellitus with other specified complication (principal); N18.6 End stage renal disease; T87.89 Other complications of amputation stump; M86.671 Other chronic osteomyelitis, right ankle and foot; E11.51 Type 2 diabetes mellitus with diabetic peripheral angiopathy without gangrene; E11.42 Type 2 diabetes mellitus with diabetic polyneuropathy; Z79.4 Long term (current) use of insulin; E11.628 Type 2 diabetes mellitus with other skin complications; E11.22 Type 2 diabetes mellitus with diabetic chronic kidney disease; Z83.3 Family history of diabetes mellitus; E78.5 Hyperlipidemia, unspecified; Z89.421 Acquired absence of other right toe(s); L08.9 Local infection of the skin and subcutaneous tissue, unspecified; Y83.5 Amputation of limb(s) as the cause of abnormal reaction of the patient, or of later complication, without mention of misadventure at the time of the procedure; X58.XXXA Exposure to other specified factors, initial encounter; Z86.14 Personal history of Methicillin resistant Staphylococcus aureus infection
CPT/HCPCS: 11044; 11047; 99213; G0463

== ENCOUNTER 2024-08-27 08:23 | Outpatient (RCR) | payer MEDICARE, SELFPAY ==
[2024-08-21 00:56] VITALS: BP 123/39; PULSE 42; RESP 16; TEMP 36.3; BMI 31.9
[2024-08-27 08:54] VITALS: BP 100/61; PULSE 66; RESP 16; BMI 31.9
--- NOTE | 2024-08-27 09:27 | PCM.WC.PN ---
History of Present Illness Date of Service: 08/27/24 Chief Complaint: R 1st digit amputation site, R 2nd toe ulceration History of Wound: Rohit Marvin is an 89-year-old male with complicated past medical history including severe type 2 diabetes that is better controlled now with hemoglobin A1c of 6 as well as peripheral vascular disease status post right lower extremity vascular interventions for nonhealing right foot wounds. 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 He was recently admitted for cellulitis/infection this past week, and missed a referral appointment to a vascular surgeon at to discuss arch flow improvement as his posterior tibial artery stops at the ankle and the peroneal and anterior tibial arteries do not perfuse the location where he needs flow. Patient denies constitutional symptoms. Patient denies pain. Patient has been maintaining nonweightbearing status at his SNF has been compliant with treatment thus far. No other complaints. Endorses good dressing changes. Subjective Subjective 31 July 2024: Here for follow of right TMA wound. They have been having difficulty coordinating appointment with vascular surgery at [facility] for the pedal arch consultation as the dialysis schedule of Tuesday makes this a challenge. They are continuing wet-to-dry dressings twice daily as well as Betadine paint to the eschar on the heel. Patient and his sons report adequate pressure offloading. 06 August 2024: Here for follow up of the wound. Family and the patient still adamant about attempt at limb salvage (coordinating appointment with vascular surgery). He was sent to [place] ED last on Tue for a wound check and was promptly sent back to the SNF. 13 August 2024: No significant changes. Has appointment with vascular surgery on 22 August 2024 (next week). 20 August 2024: No significant changes in the wound since last seen in the wound care center. Patient has been doing well with dressing changes. Patient's adult sons here with the patient at today's visit. Patient and his sons report that they have had a family meeting. They have decided to cancel their appointment with the vascular surgery team and would like to pursue amputation. Patient, Mr. Thompson, is adamant that this is what he wants (that is, definitive management with a right lower extremity amputation). Current encounter, 27 August 2024: Doing well overall. No fevers or chills. He is on the schedule for amputation on 29 August 2024. Objective Data Objective Data Vital Signs: Vital Signs Temp Pulse Resp BP O2 Del Method 97.4 F L 66 16 100/61 Room Air 08/21/24 00:56 08/27/24 08:54 08/27/24 08:54 08/27/24 08:54 08/27/24 08:54 Oxygen Delivery Method Room Air Weight: 204 lb Body Mass Index (BMI) 31.9 Charges/Coding Multi Select Codes Visit Charges Office Visit/Consults: 07306 OV L4 Est 30min (extensive counseling, examined wound and redressed wound ) Physical Exam Narrative RIGHT LOWER Extremity Inspection: Persistent necrotic tissue and bone at the base of the right lower extremity transmetatarsal amputation wound with exposed tarsal bones that have minimal granulation tissue. This wound measures 9.5 x 5.5 cm and is 3 cm deep. No purulent drainage. There is also a full-thickness 2x 2 cm and 1.5 cm deep lateral calcaneus wound that is now open and without drainage. These are my personal measurements (other measurements of this document may have been taken by nursing staff, and vary based on subtle differences in orientation). Palpation: No palpable fluid collections Motor: He is able to flex and dorsiflex his ankle slightly with minimal strength Sensory: Intact to light touch on the plantar surface of the foot Vascular: I cannot palpate pulses, but skin edges appear warm and blood with debridement. Const alert and oriented x3 Eyes EOMs intact bilaterally Resp normal respiratory effort and clear to auscultation bilaterally Cardio regular rate Cardio Narrative: I heard a systolic murmur between S1 and S2 Debridement Note Debridement Note No debridement was completed: No debridement was completed today Post-Debridement Measurements and Additional Note: Post-Debridement Measurements/Treatment - Nurse 1 - General Ulcer Assessment Start: 08/27/24 08:54 Freq: Status: Active Protocol: FREEMAN Activity Type Activity Date Activity User E-sign Co-sign Detail Recorded Client Recorded Date Recorded By Document 08/27/24 08:54 [facility] [id number] 08/27/24 08:57 [facility] 08/27/24 08:54 - Today's Visit Information Type of service Follow-up Visit (Physician/[employer]UIT [employer]PERATOR ) Arrival Mode Wheelchair Transfer Assistance None Accompanied by son in law Patient Identification Verified (Name & Yes ) Patient Requires Transmission-Based No Precautions Height and Weight Body Mass Index (BMI) 31.9 BMI Classification Obese Vital Signs Pulse Rate (60-100) 66 Pulse Location Monitor Respiratory Rate (12-18) 16 Respiratory rate source Observation Oxygen Delivery Method Room Air Blood Pressure (90/60-120/80) 100/61 Blood Pressure Mean (mm Hg) 74 Source Monitor Position Sitting Blood Pressure Location Right Forearm History Since Last Visit- (Skip if this is Patient's initial visit) Have you changed medications since your No last visit? Any new allergies or adverse reactions No Had a fall/change in ADL's that may No increase risk of falls Signs or symptoms of abuse and/or No neglect since last visit Have you been in the hospital since your No last visit? Has dressing in place as prescribed Yes Has compression in place as prescribed N/A Has offloadiing in place as prescribed N/A Experienced any changes in pain level or No management Other Footwear l foot sock; r foot no footwear Pain Scale: 0-10 Numeric Is Patient Pain Free? Yes - Nurse 1 - General Ulcer Measurement Start: 08/27/24 08:54 Freq: Status: Active Protocol: Activity Type Activity Date Activity User E-sign Co-sign Detail Recorded Client Recorded Date Recorded By Document 08/27/24 08:54 [facility] [id number] 08/27/24 08:57 [facility] 08/27/24 08:54 Wound Center Nurse 1 #2 rt HEEL -Combined with other wound No -Current Size (cm) - Length 1.5 -Current Size (cm) - Width 1.5 -Current Size (cm) - Depth 1.5 -Total Square Cm 2.25 -Exudate Amt None Present -Wound Margin Distinct, Outline Attached -Granulation Amt None Present (0 %) -Slough/Fibrin Yes -Necrosis Amt Large (67-100%) -Necrotic Tissue Type Eschar -Texture (Apurva-wound Skin Appearance) Assessed, Scarring -Moisture (Apurva-wound Skin Appearance) Assessed -Color (Apurva-wound Skin Appearance) Assessed -Temperature (Apurva-wound Skin No Abnormality Appearance) (Pt Warm) -Tenderness on Palpation (Apurva-wound No Skin Appearance) -Ulcer Cleansing Soap and Water -Foul Odor after Cleansing No -Anesthetic Used 5% Lidocaine Gel #1 RT FT POST-OP -Combined with other wound No -Current Size (cm) - Length 5 -Current Size (cm) - Width 9.2 -Current Size (cm) - Depth 2.1 -Total Square Cm 46.0 -Epithelialization None Present -Exudate Amt Large -Exudate Type Serosanguineous -Wound Margin Distinct, Outline Attached -Granulation Amt Small (1-33%) -Granulation Quality Red -Slough/Fibrin Yes -Necrosis Amt Large (67-100%) -Necrotic Tissue Type Adherent Slough -Texture (Apurva-wound Skin Appearance) Assessed, Scarring -Moisture (Apurva-wound Skin Appearance) Assessed -Color (Apurva-wound Skin Appearance) Assessed -Temperature (Apurva-wound Skin No Abnormality Appearance) (Pt Warm) -Tenderness on Palpation (Apurva-wound No Skin Appearance) -Ulcer Cleansing Soap and Water -Foul Odor after Cleansing No -Anesthetic Used 5% Lidocaine Gel WC - Nurse 2 - General Ulcer CM Notes Start: 08/27/24 08:54 Freq: Status: Active Protocol: Activity Type Activity Date Activity User E-sign Co-sign Detail Recorded Client Recorded Date Recorded By Document 08/27/24 09:11 DS [id number] 08/27/24 09:11 DS 08/27/24 09:11 Wound Center Nurse 2 #2 rt HEEL -Time 09:11 -Correct Patient Yes -Correct Side, Site, Position Yes -Procedure Performed No -Wound/Ulcer Outcome Not Healed #1 RT FT POST-OP -Time 09:11 -Correct Patient Yes -Correct Side, Site, Position Yes -Procedure Performed No -Wound/Ulcer Outcome Not Healed Pain Scale: 0-10 Numeric Is Patient Pain Free? Yes Assessment/Plan Assessment/Plan (1) PAD (peripheral artery disease): CODE(S): I73.9 - Peripheral vascular disease, unspecified (2) Osteomyelitis of right foot: CODE(S): M86.9 - Osteomyelitis, unspecified QUALIFIERS: Osteomyelitis type: other chronic Qualified Code(s): M86.671 - Other chronic osteomyelitis, right ankle and foot (3) Diabetic infection of right foot: CODE(S): E11.628 - Type 2 diabetes mellitus with other skin complications; L08.9 - Local infection of the skin and subcutaneous tissue, unspecified (4) Wound, open, foot: CODE(S): S90.309A - Unspecified open wound, unspecified foot, initial encounter PLAN: Plan I talked to the patient and his adult son and dee extensively about the condition of the right lower extremity and the residual foot status post transmetatarsal amputation by podiatry. I had a discussion today with vascular surgery (Dr. White, [facility]). He recommended that they do reschedule their appointment with vascular surgery to evaluate arch interventions to the foot to improve blood flow and healing. Dr. White does feel that at this point he could heal a BKA well. We talked extensively about the options of continued limb salvage versus amputation. I talked to Mr. Thompson and his adult sons about the increase in energy expenditure with an amputation, and how salvaging his foot, regardless the condition of the foot as long as it is healed, is likely better for him than an attempted amputation and a prosthetic. 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 I talked him about the issues with wound healing. I talked about the options of another debridement with vera flow wound VAC therapy, followed by further attempts at reconstruction once better blood flow is reestablished. Plan to follow-up with me following vascular surgery consultation at Continue Dakin's wet-to-dry dressings twice daily PLAN FROM 31 July 2024: We talked again today about limb salvage v amputation v palliative care options. I had a conversation with vascular surgery at [place] who recommended that the patient see vascular surgery at (for pedal arch interventions) before any amputation. The family and patient are adamant that they do not want to do amputation at this time and would like to continue attempts at salvage and meet with vascular surgery before considering other options such as below-knee amputation. I offered/suggested for them to see podiatry for wound care until the vascular surgeons finalize there plan, and they wanted to continue to come to plastics for wound care. Plan to follow-up with me next week for wound care/check on wound and prevent/monitor for acute infection developing. Continue Dakin's wet-to-dry dressings twice daily. Betadine paint to the calf wound eschar to keep dry twice daily Discussed concerning signs/symptoms of acute/ascending infection (and wet gangrene) with the family and the patient, discussing return precautions/what to look for that would signal a need for ED evaluation. Plan from 06 August 2024: Reiterated above risks, benefits, and alternatives to continued limb salvage. I discussed with the patient and his sons that today would be reasonable stopping limb salvage (if they wanted a below-knee amputation today, I think it would be reasonable to schedule). They are adamant about continued limb salvage and would like to keep their appointment with vascular surgery for potential improvement of pedal arch flow, which is scheduled for early August. Patient and his sons happy with plan to follow-up in the wound care center weekly for wound checks and debridement as needed so as to prevent a severe foot infection from developing. Follow-up in 1 week Plan from 13 August 2024: Again discussed with them risks, benefits, and alteratives to limb salvage, and discussed how now would be an acceptable stopping point (amputation), but that since the patient and family are desiring consult with vascular, seems reasonable to see what they say next week to see if there are options. I offered to see Mr. Thompson in 2 weeks (since they're seeing vascular next week, and seems like a lot to coordinate given dialysis schedule), but they would like to see us for continuity of care and wound check on Tuesday. F/u in 1 week. Continue current wound care regimen. PLAN FROM 20 AUGUST 2024: Discussed with the patient and his family extensively the risks, benefits, and alternatives to limb salvage versus amputation and they are in agreement that amputation is the best next step. I have spoken with Dr. Earl White on the phone from vascular surgery and we will perform the amputation together, with him as the primary surgeon and he is assisting surgeon. I spoke with the patient and his family extensively in previous visits about increased energy expenditure from amputations and the effect that this can have on overall physiology and the patient's heart. They understand this and are in agreement. They understand that it may be difficult for the patient to walk with a prosthetic. I talked to the patient and his family about residual nerve pain and phantom nerve pain as risks of lower extremity amputation. I talked to them about targeted muscle reinnervation versus regenerative peripheral nerve interface as a modality to prevent these problems. I talked to them about there being no guarantees that this will prevent this, but studies have shown that it can help; however, I talked to them about limited data concerning variables such as diabetic peripheral neuropathy and vascular disease and how these may influence the outcomes. I spoke to them about risks of increased operative time and the risk of anesthesia including stroke and . They understand these risks. We will likely try to limit OR time and perform these interventions of possible in a very timely manner to limit the amount of anesthesia time given the patient's comorbidities. Furthermore we talked about the risks of bleeding, infection, damage to surrounding structures, perioperative complications from electrolyte abnormalities, wound healing problems following the amputation, and again the complications of anesthesia. I have contacted anesthesia ahead of time (Dr. Itz Mahan) about this case and we will coordinate so as to optimize the patient preoperativel for an elective right lower extremity below-knee amputation. Plan for Dakin's wet-to-dry dressings twice daily with pressure offloading until then. We will schedule for right lower extremity amputation (below-knee amputation) Plan from 27 August 2024: I talked to the patient extensively, as well as his adult son, about the risks of surgery including hypertension during anesthesia, stroke, heart failure, and . These are all risk related anesthesia, as well as are below-knee amputation. He understands that there are significant comorbidities that make this procedure dangerous, although it appears to be necessary as he is at risk for infection especially in the setting of the developing diabetic heel wound. They understand the benefits of the procedure as well as the alternatives (continued wound care, vascular surgery consultation, or palliative care). I talked him about the risks benefits and alternatives to targeted muscle reinnervation versus regenerative peripheral nerve interface in an attempt to prevent phantom limb pain or residual limb pain from neuromas. He understands the risks of these conditions and understands that there is no guarantee that these will be prevented. He understands the risk of increased operative time and risk of infection (especially with the free muscle grafts). They would like to proceed. Plan to hold Plavix tonight and tomorrow (48 hours before surgery per vascular surgery discussion). Okay to continue aspirin. Plan for right lower extremity below-knee amputation on 29 August 2024 with likely regenerative peripheral nerve interfaces (vascular surgery and plastic surgery joint case). Anticipate overnight admission and dialysis on , 30 August 2024.
== END 2024-09-19 23:59 | disposition skilled nursing facility (03) ==
LOC: WC 08:23
PROVIDERS: PCP Internal Medicine; Referring Provider Student in an Organized Health Care Education/Training Program; Visit Provider Surgery Plastic and Reconstructive Surgery
DX: E11.51 Type 2 diabetes mellitus with diabetic peripheral angiopathy without gangrene (principal); T87.89 Other complications of amputation stump; M86.671 Other chronic osteomyelitis, right ankle and foot; E11.69 Type 2 diabetes mellitus with other specified complication; E11.628 Type 2 diabetes mellitus with other skin complications; L08.9 Local infection of the skin and subcutaneous tissue, unspecified; S91.301A Unspecified open wound, right foot, initial encounter; Z89.421 Acquired absence of other right toe(s); Y83.5 Amputation of limb(s) as the cause of abnormal reaction of the patient, or of later complication, without mention of misadventure at the time of the procedure; Z86.14 Personal history of Methicillin resistant Staphylococcus aureus infection; X58.XXXA Exposure to other specified factors, initial encounter
CPT/HCPCS: 99214; G0463

== ENCOUNTER → 2024-08-27 | Outpatient (REF) | payer MEDICARE, SELFPAY ==
[2024-08-27 09:36] LABS: Absolute Lymphocyte Count 1.45 X10^3/uL (0.83-4.51); Absolute Neutrophil Count 6.3 X10^3/uL (2.0-7.7); Basophil# 0.05 X10^3/uL; Basophil% 0.6 % (0-1); Eosinophil# 0.21 X10^3/uL; Eosinophils% 2.3 % (0-5); Hematocrit 30.4 % (40-54); Lymphocyte # 1.45 X10^3/ul (0.83-4.51); Mean Corp Hgb Conc 29.6 g/dL (32-36); Mean Corpuscular Volume 91.3 fL (80-94); Mean Platelet Vol. 10.7 fl (6.2-12.0); Monocyte# 0.97 X10^3/uL; Monocyte% 10.7 % (0-10); NRBC Flagged by Analyzer 0 % (0-5); Neutrophil % 69.7 % (47-70); Platelet Count 300 K/mm3 (150-450); RBC Distribution Width CV 16.3 % (11.6-14.6); RBC Distribution Width SD 54.3 fl (35.1-43.9); Red Blood Count 3.33 M/mm3 (4.6-6.2)
[2024-08-27 09:56] LABS: Anion Gap 15 (5-15); BUN 55 mg/dL (4-19); BUN/Creat Ratio 10.5 RATIO (10-20); Calcium,Total 8.8 mg/dL (7.6-11.0); Carbon Dioxide 26.5 mmol/L (21.0-32.0); Chloride 94 mmol/L (98-108); Creatinine, Serum 5.29 mg/dL (0.70-1.20); EST Glomerular Filtration Rate 10 (>60); Glucose 261 mg/dL (70-99); Potassium 3.7 mmol/L (3.3-5.1); Sodium Level 135 mmol/L (133-145)
== END ==
LOC: OLS.WHLEAS 04:00
PROVIDERS: PCP Internal Medicine; Referring Provider Internal Medicine; Visit Provider Internal Medicine
DX: R41.82 Altered mental status, unspecified (principal); M86.171 Other acute osteomyelitis, right ankle and foot; L03.031 Cellulitis of right toe; M62.561 Muscle wasting and atrophy, not elsewhere classified, right lower leg
CPT/HCPCS: 36415; 80048; 85025

== ENCOUNTER 2024-08-29 13:06 | Inpatient (IN) | payer MEDICARE, SELFPAY ==
[2024-08-28 08:39] LABS: Hematocrit 30.6 % (40-54); Hemoglobin 9.1 g/dL (13.0-16.5); Mean Corp Hgb Conc 29.7 g/dL (32-36); Mean Corpuscular Hgb 26.9 pg (27.0-32.0); Mean Corpuscular Volume 90.5 fL (80-94); Mean Platelet Vol. 10.5 fl (6.2-12.0); Platelet Count 321 K/mm3 (150-450); RBC Distribution Width CV 16.2 % (11.6-14.6); RBC Distribution Width SD 53.1 fl (35.1-43.9); Red Blood Count 3.38 M/mm3 (4.6-6.2); White Blood Count 9.5 K/mm3 (4.4-11.0)
[2024-08-28 08:52] LABS: Anion Gap 16 (5-15); BUN 76 mg/dL (4-19); BUN/Creat Ratio 13.2 RATIO (10-20); Carbon Dioxide 24.9 mmol/L (21.0-32.0); Chloride 93 mmol/L (98-108); Creatinine, Serum 5.77 mg/dL (0.70-1.20); EST Glomerular Filtration Rate 9 (>60); Glucose 93 mg/dL (70-99); Potassium 4.4 mmol/L (3.3-5.1); Sodium Level 134 mmol/L (133-145)
--- NOTE | 2024-08-28 12:38 | PAT.ANESEVAL ---
Pre-Assessment Diagnosis/Proposed Procedure Planned Operative Procedure(s): RIGHT BELOW KNEE AMPUTATION Anesthesia History Anesthesia History - detention deputy: Anesthesia History - detention deputy Hx Hospitalization Yes 08/28/24 08:57 Any Problems With Anesthesia No 08/28/24 08:57 Cholinesterase deficiency No 08/28/24 08:57 You/Your Family Experience No 08/28/24 08:57 fever (hyperthermia) with Relationship Recent Exposure to Contagious No 06/06/24 06:39 Disease Does patient have nerve No 08/28/24 08:57 stimulator Patient instructed to have device shut off --Does patient have Pacemaker or ICD? When Was Last Pacemaker Check QUESTION #4 FULL TEXT: You/Your Family Experience fever (hyperthermia) with Anesthesia Last Oral Intake Last Oral intake: Last Oral Intake NPO since Meds taken in AM with sips of water? Meds patient instructed to take am of surgery PONV PONV - detention deputy: PONV - detention deputy Female No 08/28/24 08:57 HX of Motion Sickness No 08/28/24 08:57 HX of N/V After Surgery No 08/28/24 08:57 Non-Smoker Yes 08/28/24 08:57 Duration of Surgery greater Yes 08/28/24 08:57 than 60 minutes Number of Risk Factors 2 08/28/24 08:57 PONV Score Moderate Risk 08/28/24 08:57 Height & Weight Height & Weight: Anesthesia: Height & Weight Height 5 ft 7 in 08/01/24 12:47 Respiratory Assessment Respiratory Assessment - detention deputy: Respiratory Tract Infection Hx - detention deputy Hx Respiratory Tract Infection No 08/28/24 08:57 STOP Sleep Apnea STOP Sleep Apnea - detention deputy: STOP Sleep Apnea - detention deputy Hx Hypertension No 08/28/24 08:57 Hx Sleep Apnea No 08/28/24 08:57 CPAP No 08/28/24 08:57 BIPAP No 08/28/24 08:57 Do you snore loudly (louder No 08/28/24 08:57 than talking or can be heard Do you often feel tired/ No 08/28/24 08:57 fatigued/ sleepy during daytime? Has anyone observed you stop No 08/28/24 08:57 breathing during sleep? STOP Results Negative 08/28/24 08:57 QUESTION #5 FULL TEXT : Do you snore loudly (louder than talking or can be heard through closed doors)? 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 Specify any problems Hx of Preganancy in last 3 N/A 08/28/24 08:57 Months Nurse Filling Out Transfusion VCHRISTIN 08/28/24 08:57 & Questions: Date: 08/28/24 08/28/24 08:57 Time: 08:59 08/28/24 08:57 Patient unable to answer at this time (ie. confused, unrespo /Reproduction History /Reproductive History - detention deputy: /Reproductive Hx- detention deputy Hx Now No 08/28/24 08:57 Gestational Age (in weeks): EDC: Hx Hx Para Hx Section SAB No 08/28/24 08:57 Active Medications Active Medications: Current Medications Generic Name Dose Route Start Last Admin Trade Name Freq PRN Reason Stop Dose Admin Cefazolin Sodium 2 gm/ N/A 20 mls @ 400 mls/hr 08/29/24 10:30 IV 08/29/24 10:32 PREOP [facility] Medical History (Updated 08/28/24 @ 08:56 by Guerline Bettencourt) MRSA (methicillin resistant staph aureus) culture positive Cutaneous abscess of right foot Diabetic infection of right foot End stage renal disease Acute hyperkalemia Open wound Lives in senior living Dietary restriction History of stress test History of echocardiogram Cardiology follow-up encounter History of atrial fibrillation Insulin dependent diabetes mellitus Other specified peripheral vascular diseases 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 ESRD (end stage renal disease) Type 2 diabetes mellitus with foot ulcer Diabetes mellitus with diabetic 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 Pre-op testing Loose, teeth Wears glasses Cancer Dialysis patient Kidney disease Non-smoker Edema Syncope Chronic diastolic (congestive) heart failure (04/18/20) Paroxysmal atrial fibrillation Sinus bradycardia Type 2 diabetes mellitus Hyperkalemia Swelling of both lower extremities HLD (hyperlipidemia) Left bundle-branch block 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 Abnormal electrocardiogram Home Medications ?Medication ?Instructions ?Recorded ?Last Taken ?Type aspirin 81 mg tablet,delayed 81 mg PO DAILY heart health 07/01/20 06/05/24 History release (Adult Aspirin Regimen) torsemide 100 mg tablet 100 mg PO MOWEFR water pill 04/14/24 06/04/24 History insulin glargine 100 unit/mL (3 20 unit (0.2 mL) subcut DINNER 04/24/24 06/05/24 Rx mL) subcutaneous pen diabetes 30 days #0 mL insulin lispro 100 unit/mL See Protocol subcut ACHS dm 05/04/24 Unknown History subcutaneous pen (Humalog KwikPen (U-100) Insulin) arginine 7 gram-glutamine 7 1 ea PO BID SUPPLEMENT 05/22/24 06/05/24 History gram-calcium HMB 1.5 gram oral powder pack (Dustin) nut.tx.gluc.intol,lac-free,soy 240 ml PO DAILY SUPPLEMENT 06/04/24 06/05/24 History (Glucerna oral liquid) sennosides 8.6 mg-docusate sodium 1 tab-cap PO BID PRN PRN 06/04/24 06/05/24 History 50 mg tablet (Stimulant Laxative Constipation Plus) clopidogrel 75 mg tablet 75 mg PO QHS BLOOD THINNER 07/02/24 08/26/24 History acetaminophen 325 mg tablet 650 mg PO Q8H PRN PRN Pain 1-10 Or 07/13/24 Unknown History Fever >100.7 cholecalciferol (vitamin D3) 125 125 mcg PO DAILY SUPPLEMENT 07/13/24 Unknown History mcg (5,000 unit) capsule insulin lispro 100 unit/mL 10 unit subcut TID DIABETES 07/13/24 Unknown History subcutaneous pen albuterol sulfate 2.5 mg/3 mL 2.5 mg (3 mL) inhalation Q2H PRN 07/20/24 Unknown Rx (0.083 %) solution for nebulization PRN SOB &/OR WHEEZING #0 mL benzocaine 15 mg-menthol 3.6 mg 2 mariaa mucous membrane Q2H PRN PRN 07/20/24 Unknown Rx lozenges (Sore Throat (benzocaine sore throat #0 ea with menthol)) heparin (porcine) 5,000 unit/mL 5,000 unit subcut Q8 ON HOLD #0 mL 07/20/24 Unknown Rx injection solution menthol 0.44 %-zinc oxide 20.6 % 1 applic topical BID SKIN 07/20/24 Unknown Rx topical ointment (Calmoseptine) IRRITATION #0 grams oxycodone 5 mg tablet 2.5 mg (1/2 x 5 mg) PO Q4H PRN PRN 08/15/24 Unknown Rx Pain Score 4-10 30 days #60 tabs oxycodone 5 mg tablet 2.5 mg (1/2 x 5 mg) PO DAILY pain 08/22/24 Unknown Rx 30 days #15 tabs oxycodone 5 mg tablet 2.5 mg (1/2 x 5 mg) PO Q4H PRN 08/22/24 Unknown Rx pain 30 days #60 tabs sodium hypochlorite 0.25 % 1 applic topical DAILY TOPICAL 08/28/24 Unknown History solution (HySept) Allergy/AdvReac Type Severity Reaction Status Date / Time pioglitazone (From Actos) Allergy fatigue Verified 08/28/24 08:43 simvastatin (From Zocor) Allergy myalgia Verified 08/28/24 08:43 sitagliptin (From Januvia) Allergy unknown Verified 08/28/24 08:43 Family History Mother Hypertension Father Diabetes COPD (chronic obstructive pulmonary disease) Surgical History (Updated 08/28/24 @ 08:56 by Guerline Bettencourt) Hx of amputation History of incision and drainage Hx of foot surgery History of cataract extraction History of ligation of vein History of arteriovenostomy for renal dialysis History of inguinal hernia repair History of appendectomy Social History housing: senior living current occupational status: retired Smoking Status: Never smoker alcohol intake: never substance use type: does not use caffeine: Yes Type: coffee Number of servings: 1 what type of physical activity do you participate in: none seatbelt use: always do you feel safe at home: Yes Audit: Pertinent Findings Pertinent Findings EKG Perinent findings: July 16, 2024. Atrial fibrillation with slow ventricular response. Compared to July 07, 2024, the ventricular rate has decreased by 23 bpm. The QT has shortened. Echo (EF%) pertinent findings: July 16, 2024. Ejection fraction 60%. PA systolic pressure is 50 mmHg. No aortic stenosis. Consult pertinent findings: October 07, 2023. Alycia SUPPLEMENTAL MANAGERMary AnneC. 1. Hypertension?chronic-blood pressure is elevated in the office. Patient states that he is better controlled at home. Will continue current medications including amlodipine and monitor. 2. Chronic diastolic congestive heart failure-patient to continue with dialysis therapy. Does not appear to be in fluid volume overload on exam. 3. Sinus [id number] on rate limiting medications. No obvious secondary symptoms. Continue to monitor. Recommendation Anesthesia Recommendation Anesthesia recommendation: OPTIMIZED for anesthesia
[2024-08-29] VITALS (20 sets, daily range): BP systolic 95–125; BP diastolic 33–58; PULSE 61–80; RESP 14–22; TEMP 36.2–37.3; O2SAT 63–98; BMI 32.1
--- NOTE | 2024-08-29 08:59 | PCM.PRE.AN2 ---
ASA Classification* ASA Classification ASA Classification: 3 Assessment & Plan Anesthesia* Anesthesia Assessment Anesthesia Assessment: Discussed sedation and/or anesthesia options, risks, benefits, and alternatives with patient/parents/legal guardian/POA. Questions invited. The patient/parents/legal guardian/POA seems to understand and agrees to proceed with anesthesia plan. Reviewed the physical assessment, medical history, allergy history and patient home medications list prior to surgery/procedure/anesthetic and documented any changes. Performed airway and anesthesia risk assessments. Anesthesia Type Anesthesia Type: General Anesthesia Focused Assessment* Airway Assessment Mouth opens: >3 cm Mallampati Score: II Focused Labs Anesthesia Preop lab: CBC WBC 9.5 K/mm3 (4.4-11.0) 08/28/24 06:40 08/28/24 RBC 3.38 M/mm3 (4.6-6.2) L 08/28/24 06:40 08/28/24 Hgb 9.1 g/dL (13.0-16.5) L 08/28/24 06:40 08/28/24 Hct 30.6 % (40-54) L 08/28/24 06:40 08/28/24 Plt Count 321 K/mm3 (150-450) 08/28/24 06:40 08/28/24 CHEMISTRY Potassium 4.4 mmol/L (3.3-5.1) 08/28/24 06:40 08/28/24 Sodium 134 mmol/L (133-145) 08/28/24 06:40 08/28/24 BUN 76 mg/dL (4-19) H 08/28/24 06:40 08/28/24 Creatinine 5.77 mg/dL (0.70-1.20) H 08/28/24 06:40 08/28/24 Glucose 93 mg/dL (70-99) 08/28/24 06:40 08/28/24 POC Glucose 91 mg/dL (74-106) 07/20/24 20:38 07/20/24 TSH 1.080 uIU/mL (0.358-3.740) 05/15/24 05:05 05/15/24 COAG PT 16.8 SECONDS (11.7-14.9) H 07/16/24 06:45 07/16/24 Pre-Assessment Diagnosis/Proposed Procedure Planned Operative Procedure(s): RIGHT BELOW KNEE AMPUTATION Anesthesia History Anesthesia History - adult neurologist: Anesthesia History - adult neurologist Hx Hospitalization Yes 08/28/24 08:57 Any Problems With Anesthesia No 08/28/24 08:57 Cholinesterase deficiency No 08/28/24 08:57 You/Your Family Experience No 08/28/24 08:57 fever (hyperthermia) with Relationship Recent Exposure to Contagious No 06/06/24 06:39 Disease Does patient have nerve No 08/28/24 08:57 stimulator Patient instructed to have device shut off --Does patient have Pacemaker or ICD? When Was Last Pacemaker Check QUESTION #4 FULL TEXT: You/Your Family Experience fever (hyperthermia) with Anesthesia Last Oral Intake Last Oral intake: Last Oral Intake NPO since Meds taken in AM with sips of water? Meds patient instructed to take am of surgery PONV PONV - adult neurologist: PONV - adult neurologist Female No 08/28/24 08:57 HX of Motion Sickness No 08/28/24 08:57 HX of N/V After Surgery No 08/28/24 08:57 Non-Smoker Yes 08/28/24 08:57 Duration of Surgery greater Yes 08/28/24 08:57 than 60 minutes Number of Risk Factors 2 08/28/24 08:57 PONV Score Moderate Risk 08/28/24 08:57 Height & Weight Height & Weight: Anesthesia: Height & Weight Height 5 ft 7 in 08/01/24 12:47 Respiratory Assessment Respiratory Assessment - adult neurologist: Respiratory Tract Infection Hx - adult neurologist Hx Respiratory Tract Infection No 08/28/24 08:57 STOP Sleep Apnea STOP Sleep Apnea - adult neurologist: STOP Sleep Apnea - adult neurologist Hx Hypertension No 08/28/24 08:57 Hx Sleep Apnea No 08/28/24 08:57 CPAP No 08/28/24 08:57 BIPAP No 08/28/24 08:57 Do you snore loudly (louder No 08/28/24 08:57 than talking or can be heard Do you often feel tired/ No 08/28/24 08:57 fatigued/ sleepy during daytime? Has anyone observed you stop No 08/28/24 08:57 breathing during sleep? STOP Results Negative 08/28/24 08:57 QUESTION #5 FULL TEXT : Do you snore loudly (louder than talking or can be heard through closed doors)? 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 Specify any problems Hx of Preganancy in last 3 N/A 08/28/24 08:57 Months Nurse Filling Out Transfusion VCHRISTIN 08/28/24 08:57 & Questions: Date: 08/28/24 08/28/24 08:57 Time: 08:59 08/28/24 08:57 Patient unable to answer at this time (ie. confused, unrespo /Reproduction History /Reproductive History - adult neurologist: /Reproductive Hx- adult neurologist Hx Now No 08/28/24 08:57 Gestational Age (in weeks): EDC: Hx Hx Para Hx Section SAB No 08/28/24 08:57 Active Medications Active Medications: Current Medications Generic Name Dose Route Start Last Admin Trade Name Freq PRN Reason Stop Dose Admin Cefazolin Sodium 2 gm/ N/A 20 mls @ 400 mls/hr 08/29/24 10:30 IV 08/29/24 10:32 PREOP ONE Sodium Chloride 1,000 mls @ 15 mls/hr 08/29/24 08:45 IV .Q48H CIRO PFSH Medical History MRSA (methicillin resistant staph aureus) culture positive Cutaneous abscess of right foot Diabetic infection of right foot End stage renal disease Acute hyperkalemia Open wound Lives in senior living Dietary restriction History of stress test History of echocardiogram Cardiology follow-up encounter History of atrial fibrillation Insulin dependent diabetes mellitus Other specified peripheral vascular diseases 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 ESRD (end stage renal disease) Type 2 diabetes mellitus with foot ulcer Diabetes mellitus with diabetic 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 Pre-op testing Loose, teeth Wears glasses Cancer Dialysis patient Kidney disease Non-smoker Edema Syncope Chronic diastolic (congestive) heart failure (04/18/20) Paroxysmal atrial fibrillation Sinus bradycardia Type 2 diabetes mellitus Hyperkalemia Swelling of both lower extremities HLD (hyperlipidemia) Left bundle-branch block 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 Abnormal electrocardiogram Home Medications ?Medication ?Instructions ?Recorded ?Last Taken ?Type aspirin 81 mg tablet,delayed 81 mg PO DAILY heart health 07/01/20 06/05/24 History release (Adult Aspirin Regimen) torsemide 100 mg tablet 100 mg PO MOWEFR water pill 04/14/24 06/04/24 History insulin glargine 100 unit/mL (3 20 unit (0.2 mL) subcut DINNER 04/24/24 06/05/24 Rx mL) subcutaneous pen diabetes 30 days #0 mL insulin lispro 100 unit/mL See Protocol subcut ACHS dm 05/04/24 Unknown History subcutaneous pen (Humalog KwikPen (U-100) Insulin) arginine 7 gram-glutamine 7 1 ea PO BID SUPPLEMENT 05/22/24 06/05/24 History gram-calcium HMB 1.5 gram oral powder pack (Dustin) nut.tx.gluc.intol,lac-free,soy 240 ml PO DAILY SUPPLEMENT 06/04/24 06/05/24 History (Glucerna oral liquid) sennosides 8.6 mg-docusate sodium 1 tab-cap PO BID PRN PRN 06/04/24 06/05/24 History 50 mg tablet (Stimulant Laxative Constipation Plus) clopidogrel 75 mg tablet 75 mg PO QHS BLOOD THINNER 07/02/24 08/26/24 History acetaminophen 325 mg tablet 650 mg PO Q8H PRN PRN Pain 1-10 Or 07/13/24 Unknown History Fever >100.7 cholecalciferol (vitamin D3) 125 125 mcg PO DAILY SUPPLEMENT 07/13/24 Unknown History mcg (5,000 unit) capsule insulin lispro 100 unit/mL 10 unit subcut TID DIABETES 07/13/24 Unknown History subcutaneous pen albuterol sulfate 2.5 mg/3 mL 2.5 mg (3 mL) inhalation Q2H PRN 07/20/24 Unknown Rx (0.083 %) solution for nebulization PRN SOB &/OR WHEEZING #0 mL benzocaine 15 mg-menthol 3.6 mg 2 mariaa mucous membrane Q2H PRN PRN 07/20/24 Unknown Rx lozenges (Sore Throat (benzocaine sore throat #0 ea with menthol)) heparin (porcine) 5,000 unit/mL 5,000 unit subcut Q8 ON HOLD #0 mL 07/20/24 Unknown Rx injection solution menthol 0.44 %-zinc oxide 20.6 % 1 applic topical BID SKIN 07/20/24 Unknown Rx topical ointment (Calmoseptine) IRRITATION #0 grams oxycodone 5 mg tablet 2.5 mg (1/2 x 5 mg) PO Q4H PRN PRN 08/15/24 Unknown Rx Pain Score 4-10 30 days #60 tabs oxycodone 5 mg tablet 2.5 mg (1/2 x 5 mg) PO DAILY pain 08/22/24 Unknown Rx 30 days #15 tabs oxycodone 5 mg tablet 2.5 mg (1/2 x 5 mg) PO Q4H PRN 08/22/24 Unknown Rx pain 30 days #60 tabs sodium hypochlorite 0.25 % 1 applic topical DAILY TOPICAL 08/28/24 Unknown History solution (HySept) Allergy/AdvReac Type Severity Reaction Status Date / Time pioglitazone (From Actos) Allergy fatigue Verified 08/28/24 08:43 simvastatin (From Zocor) Allergy myalgia Verified 08/28/24 08:43 sitagliptin (From Januvia) Allergy unknown Verified 08/28/24 08:43 Family History Mother Hypertension Father Diabetes COPD (chronic obstructive pulmonary disease) Surgical History Hx of amputation History of incision and drainage Hx of foot surgery History of cataract extraction History of ligation of vein History of arteriovenostomy for renal dialysis History of inguinal hernia repair History of appendectomy Social History housing: senior living current occupational status: retired Smoking Status: Never smoker alcohol intake: never substance use type: does not use caffeine: Yes Type: coffee Number of servings: 1 what type of physical activity do you participate in: none seatbelt use: always do you feel safe at home: Yes Review of Systems (Anesthesia) ROS Narrative System reviewed and no additional complaints, except as documented.
[2024-08-29] MEDS: 0.9% Normal Saline (1000mL) 1,000 ML 15 ML IV (09:27)
--- NOTE | 2024-08-29 10:24 | HP.PCM.SX_ITS ---
HPI - General General Date of Admission: 08/29/24 HPI Narrative Date of Service: 08/27/24 Chief Complaint: R 1st digit amputation site, R 2nd toe ulceration History of Wound: Rohit Marvin is an 89-year-old male with complicated past medical history including severe type 2 diabetes that is better controlled now with hemoglobin A1c of 6 as well as peripheral vascular disease status post right lower extremity vascular interventions for nonhealing right foot wounds. 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 He was recently admitted for cellulitis/infection this past week, and missed a referral appointment to a vascular surgeon at to discuss arch flow improvement as his posterior tibial artery stops at the ankle and the peroneal and anterior tibial arteries do not perfuse the location where he needs flow. Patient denies constitutional symptoms. Patient denies pain. Patient has been maintaining nonweightbearing status at his SNF has been compliant with treatment thus far. No other complaints. Endorses good dressing changes. Subjective Subjective 31 July 2024: Here for follow of right TMA wound. They have been having difficulty coordinating appointment with vascular surgery at [facility] for the pedal arch consultation as the dialysis schedule of Tuesday makes this a challenge. They are continuing wet-to-dry dressings twice daily as well as Betadine paint to the eschar on the heel. Patient and his sons report adequate pressure offloading. 06 August 2024: Here for follow up of the wound. Family and the patient still adamant about attempt at limb salvage (coordinating appointment with vascular surgery). He was sent to [facility] ED last on Tue for a wound check and was promptly sent back to the SNF. 13 August 2024: No significant changes. Has appointment with vascular surgery on 22 August 2024 (next week). 20 August 2024: No significant changes in the wound since last seen in the wound care center. Patient has been doing well with dressing changes. Patient's adult sons here with the patient at today's visit. Patient and his sons report that they have had a family meeting. They have decided to cancel their appointment with the vascular surgery team and would like to pursue amputation. Patient, Mr. Thompson, is adamant that this is what he wants (that is, definitive management with a right lower extremity amputation). 27 August 2024: Doing well overall. No fevers or chills. He is on the schedule for amputation on 29 August 2024. Current Encounter (DATE OF SURGERY H&P UPDATE): I saw and examined the patient this morning in pre-operative holding. We discussed risks and benefits of today's surgery and they would like to proceed. NO CHANGE in health history since last seen and evaluated. Ready to proceed with surgery. Had dialysis yesterday. 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 ESRD (end stage renal disease) Type 2 diabetes mellitus with foot ulcer Diabetes mellitus with diabetic 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 Pre-op testing Loose, teeth Wears glasses Cancer Dialysis patient Kidney disease Non-smoker Edema Syncope Chronic diastolic (congestive) heart failure (04/18/20) Paroxysmal atrial fibrillation Sinus bradycardia Type 2 diabetes mellitus Hyperkalemia Swelling of both lower extremities HLD (hyperlipidemia) Left bundle-branch block 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 Abnormal electrocardiogram Home Medications ?Medication ?Instructions ?Recorded ?Last Taken ?Type aspirin 81 mg tablet,delayed 81 mg PO DAILY heart heal th 07/01/20 08/28/24 History release (Adult Aspirin Regimen) torsemide 100 mg tablet 100 mg PO MOWEFR water pill 04/14/24 08/27/24 History insulin glargine 100 unit/mL (3 20 unit (0.2 mL) subcu t DINNER 04/24/24 08/28/24 Rx mL) subcutaneous pen diabetes 30 days #0 mL insulin lispro 100 unit/mL See Protocol subcut ACHS dm 05/04/24 08/28/24 History subcutaneous pen (Humalog KwikPen (U-100) Insulin) nut.tx.gluc.intol,lac-free,soy 240 ml PO DAILY SUPPLEM ENT 06/04/24 06/05/24 History (Glucerna oral liquid) sennosides 8.6 mg-docusate sodium 1 tab-cap PO BID PRN PRN 06/04/24 06/05/24 History 50 mg tablet (Stimulant Laxative Constipation Plus) clopidogrel 75 mg tablet 75 mg PO QHS BLOOD THINNER 0 07/02/24 08/26/24 History acetaminophen 325 mg tablet 650 mg PO Q8H PRN PRN Pain 1-10 Or 07/13/24 Unknown History Fever >100.7 cholecalciferol (vitamin D3) 125 125 mcg PO DAILY SUPP LEMENT 07/13/24 08/28/24 History mcg (5,000 unit) capsule insulin lispro 100 unit/mL 10 unit subcut TID DIABETES 07/13/24 08/28/24 History subcutaneous pen albuterol sulfate 2.5 mg/3 mL 2.5 mg (3 mL) inhalation Q2H PRN 07/20/24 Unknown Rx (0.083 %) solution for nebulization PRN SOB &/OR WHEEZ ING #0 mL benzocaine 15 mg-menthol 3.6 mg 2 mariaa mucous membrane Q2H PRN PRN 07/20/24 Unknown Rx lozenges (Sore Throat (benzocaine sore throat #0 ea with menthol)) heparin (porcine) 5,000 unit/mL 5,000 unit subcut Q8 O N HOLD #0 mL 07/20/24 08/28/24 Rx injection solution menthol 0.44 %-zinc oxide 20.6 % 1 applic topical BID SKIN 07/20/24 08/28/24 Rx topical ointment (Calmoseptine) IRRITATION #0 grams oxycodone 5 mg tablet 2.5 mg (1/2 x 5 mg) PO Q4H P RN PRN 08/15/24 08/28/24 Rx Pain Score 4-10 30 days #60 tabs oxycodone 5 mg tablet 2.5 mg (1/2 x 5 mg) PO DAILY pain 08/22/24 08/28/24 Rx 30 days #15 tabs sodium hypochlorite 0.25 % 1 applic topical DAILY TOPI MARIAH 08/28/24 Unknown History solution (HySept) arginine 7 gram-glutam 7 1 packet PO BID cellulitis 0 08/29/24 08/28/24 History gram-CaHMB 1.5 tooz-xevcl-rv-min oral pwd pkt (Dustin (with collagen)) vancomycin 750 mg intravenous 750 mg IV .COMPLEX done at dialysis 08/29/24 08/25/24 History solution Allergy/AdvReac Type Severity Reaction Status Date / Time pioglitazone (From Actos) Allergy fatigue Verified 08/29/24 09:15 simvastatin (From Zocor) Allergy myalgia Verified 08/29/24 09:15 sitagliptin (From Januvia) Allergy unknown Verified 08/29/24 09:15 Family History Mother Hypertension Father Diabetes COPD (chronic obstructive pulmonary disease) Surgical History Hx of amputation History of incision and drainage Hx of foot surgery History of cataract extraction History of ligation of vein History of arteriovenostomy for renal dialysis History of inguinal hernia repair History of appendectomy Social History housing: jail current occupational status: retired Smoking Status: Never smoker alcohol intake: never substance use type: does not use caffeine: Yes Type: coffee Number of servings: 1 what type of physical activity do you participate in: none seatbelt use: always do you feel safe at home: Yes Vital Signs Vital Signs Vital Signs: 08/29/24 09:16 08/29/24 09:16 Temperature 97.1 F L Temperature Source Temporal Pulse Rate 64 Respiratory Rate 20 H Respiratory Pattern Normal Blood Pressure 125/48 H Blood Pressure Mean 73 Blood Pressure Source Monitor Blood Pressure Position Semi-Fowlers Blood Pressure Location Left Arm Pulse Ox 93 Oxygen Delivery Method Room Air Weight Weight: 205 lb 6.548 oz Body Mass Index (BMI) 32.1 Physical Exam Narrative RIGHT LOWER Extremity Marked for amputation.No signs of ascending infection. Severe open TMA wound with exposed bone Resp normal respiratory effort Cardio regular rate Results Lab / Micro Data 08/28/24 06:40 08/28/24 06:40 Labs: Laboratory Results - last 24 hr 08/28/24 06:40: Blood Type A POSITIVE, Antibody Screen NEGATIVE, Crossmatch See Detail Assessment & Plan Assessment/Plan (1) Wound, open, foot: PLAN: Plan I talked to the patient extensively, as well as his adult son, about the risks of surgery including hypertension during anesthesia, stroke, heart failure, and . These are all risk related anesthesia, as well as are below-knee amputation. He understands that there are significant comorbidities that make this procedure dangerous, although it appears to be necessary as he is at risk for infection especially in the setting of the developing diabetic heel wound. They understand the benefits of the procedure as well as the alternatives (continued wound care, vascular surgery consultation, or palliative care). I talked him about the risks benefits and alternatives to targeted muscle reinnervation versus regenerative peripheral nerve interface in an attempt to prevent phantom limb pain or residual limb pain from neuromas. He understands the risks of these conditions and understands that there is no guarantee that these will be prevented. He understands the risk of increased operative time and risk of infection (especially with the free muscle grafts). They would like to proceed. Patient has been holding Plavix x 48 hours Plan for right lower extremity below-knee amputation today, 29 August 2024, with likely regenerative peripheral nerve interfaces (vascular surgery and plastic surgery joint case). Anticipate overnight admission and dialysis on , 30 August 2024.
--- NOTE | 2024-08-29 10:30 | AMP_PTH ---
PATIENT: PERLA LUBIN LOC: MS3 U#:[id number] AGE/SX: 89/M ROOM: [facility] RE08/29/[address]: Dr. Earl White MD : [id number] BED: 1 DIS: 09/04/2024 SPEC #: [id number] RECD: 08/29/24 13:42 STATUS: VANE REQ #: [id number] ALEXY: 08/29/24 10:[address]: Earl White DEPT: SURGICAL PATHOLOGY RECD BY: Yovani Jesus ENTERED: 08/29/24 13:42 SP TYPE: Amputation OTHR DR: MD Dr. 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 Right lower leg, amputation: * Cutaneous ulcer with gangrenous necrosis * Bone with focally increased plasma cells suggestive of chronic osteomyelitis * Anterior and posterior tibial arteries with calcifying occlusion 30-40% * Skin, soft tissue resection margins and bone marrow reamings, negative for inflammation * Focus of vascular calcifications in the subcutaneous tissue at the soft tissue resection edge MICROSCOPIC DESCRIPTION Slides are reviewed. GROSS DESCRIPTION A. Received fresh in a bag labeled with the patient's name, date of , and right lower leg is a white-kim, right below the knee amputation. The attached right foot exhibits a previous transmetatarsal amputation. The leg is 27 x 10 x 7 cm, and the attached foot is 13 x 9.5 x 8 cm. The soft tissue resection margin appears grossly viable. The tibia and fibula resection margins are smooth and firm measuring 4 cm and 1.7 cm in diameter, respectively. The skin at the transmetatarsal stump is notable for an 8.2 x 4.5 cm green-pink, ulcerated wound with exposed firm kim-yellow bone. Sectioning reveals softened dacosta-brown surfaces. The underlying bone is firm. Additionally, at the plantar aspect of the heel are 3 black and ulcerated wounds ranging from 0.3 x 0.3 cm to 3.8 x 2.6 cm. Sectioning reveals firm, black-dacosta surfaces with firm underlying bone. All the wounds are situated greater than 15 cm from the soft tissue resection margin. No other lesions are grossly noted. The anterior tibial artery is tagged with a black suture and is calcified at the margin. The posterior tibial artery is completely calcified at the margin. Possible dorsalis pedis is identified with a patent, 0.2 cm lumen. Shearing Machine Operator sections:A1. Soft tissue resection marginA2. Sampled woundsA3. Bone underlying wounds, following decalcificationA4. Anterior and posterior vascular bundles with possible dorsalis pedis following decalcificationA5. Reamings at bone margins following decalcification [facility] 08-29-2024 CPT:69307,88120
--- NOTE | 2024-08-29 10:32 | HP.PCM_ITS ---
HPI - General General Date of Admission: 08/29/24 HPI Narrative PERLA LUBIN, is a 89 M who presents with right foot non-heealing forefoot amputation. He has significant pedal level vascular compromise and despite optimizing flow to ankle the wounds have worsened. 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 ESRD (end stage renal disease) Type 2 diabetes mellitus with foot ulcer Diabetes mellitus with diabetic 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 Pre-op testing Loose, teeth Wears glasses Cancer Dialysis patient Kidney disease Non-smoker Edema Syncope Chronic diastolic (congestive) heart failure (04/18/20) Paroxysmal atrial fibrillation Sinus bradycardia Type 2 diabetes mellitus Hyperkalemia Swelling of both lower extremities HLD (hyperlipidemia) Left bundle-branch block 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 Abnormal electrocardiogram Home Medications ?Medication ?Instructions ?Recorded ?Last Taken ?Type aspirin 81 mg tablet,delayed 81 mg PO DAILY heart heal th 07/01/20 08/28/24 History release (Adult Aspirin Regimen) torsemide 100 mg tablet 100 mg PO MOWEFR water pill 04/14/24 08/27/24 History insulin glargine 100 unit/mL (3 20 unit (0.2 mL) subcu t DINNER 04/24/24 08/28/24 Rx mL) subcutaneous pen diabetes 30 days #0 mL insulin lispro 100 unit/mL See Protocol subcut ACHS dm 05/04/24 08/28/24 History subcutaneous pen (Humalog KwikPen (U-100) Insulin) nut.tx.gluc.intol,lac-free,soy 240 ml PO DAILY SUPPLEM ENT 06/04/24 06/05/24 History (Glucerna oral liquid) sennosides 8.6 mg-docusate sodium 1 tab-cap PO BID PRN PRN 06/04/24 06/05/24 History 50 mg tablet (Stimulant Laxative Constipation Plus) clopidogrel 75 mg tablet 75 mg PO QHS BLOOD THINNER 0 07/02/24 08/26/24 History acetaminophen 325 mg tablet 650 mg PO Q8H PRN PRN Pain 1-10 Or 07/13/24 Unknown History Fever >100.7 cholecalciferol (vitamin D3) 125 125 mcg PO DAILY SUPP LEMENT 07/13/24 08/28/24 History mcg (5,000 unit) capsule insulin lispro 100 unit/mL 10 unit subcut TID DIABETES 07/13/24 08/28/24 History subcutaneous pen albuterol sulfate 2.5 mg/3 mL 2.5 mg (3 mL) inhalation Q2H PRN 07/20/24 Unknown Rx (0.083 %) solution for nebulization PRN SOB &/OR WHEEZ ING #0 mL benzocaine 15 mg-menthol 3.6 mg 2 mariaa mucous membrane Q2H PRN PRN 07/20/24 Unknown Rx lozenges (Sore Throat (benzocaine sore throat #0 ea with menthol)) heparin (porcine) 5,000 unit/mL 5,000 unit subcut Q8 O N HOLD #0 mL 07/20/24 08/28/24 Rx injection solution menthol 0.44 %-zinc oxide 20.6 % 1 applic topical BID SKIN 07/20/24 08/28/24 Rx topical ointment (Calmoseptine) IRRITATION #0 grams oxycodone 5 mg tablet 2.5 mg (1/2 x 5 mg) PO Q4H P RN PRN 08/15/24 08/28/24 Rx Pain Score 4-10 30 days #60 tabs oxycodone 5 mg tablet 2.5 mg (1/2 x 5 mg) PO DAILY pain 08/22/24 08/28/24 Rx 30 days #15 tabs sodium hypochlorite 0.25 % 1 applic topical DAILY TOPI MARIAH 08/28/24 Unknown History solution (HySept) arginine 7 gram-glutam 7 1 packet PO BID cellulitis 0 08/29/24 08/28/24 History gram-CaHMB 1.5 oyef-qjmfc-rh-min oral pwd pkt (Dustin (with collagen)) vancomycin 750 mg intravenous 750 mg IV .COMPLEX done at dialysis 08/29/24 08/25/24 History solution Allergy/AdvReac Type Severity Reaction Status Date / Time pioglitazone (From Actos) Allergy fatigue Verified 08/29/24 09:15 simvastatin (From Zocor) Allergy myalgia Verified 08/29/24 09:15 sitagliptin (From Januvia) Allergy unknown Verified 08/29/24 09:15 Family History Mother Hypertension Father Diabetes COPD (chronic obstructive pulmonary disease) Surgical History Hx of amputation History of incision and drainage Hx of foot surgery History of cataract extraction History of ligation of vein History of arteriovenostomy for renal dialysis History of inguinal hernia repair History of appendectomy Social History housing: half-way current occupational status: retired Smoking Status: Never smoker alcohol intake: never substance use type: does not use caffeine: Yes Type: coffee Number of servings: 1 what type of physical activity do you participate in: none seatbelt use: always do you feel safe at home: Yes ROS Constitutional Constitutional: Denies chills, fever(s), frequent falls, lethargy or weakness Eyes Eyes: Denies blind spots, change in vision or loss of vision ENT HEENT: Denies bleeding gums, hoarseness or sore throat Cardiovascular Cardiovascular: Denies abdominal pain, bluish discoloration of hand/feet, chest pain with activity, claudication, cold extremities, cyanosis, dyspnea on exertion, erythema on extremities, irregular heart rhythm, leg edema, leg ulcers, numbness in extremities or weakness in extremities Respiratory/Chest Respiratory/Chest: Denies cough, excessive phlegm production, shortness of breath at rest, shortness of breath with exertion or wheezing Gastrointestinal Gastrointestinal: Denies anorexia, change in stool character, constipation, diarrhea, melena or rectal bleeding Genitourinary Genitourinary: Denies dysuria or hematuria Musculoskeletal Musculoskeletal: Denies abnormal gait Integumentary Integumentary: Reports other Details: ; Denies erythema, non-healing lesions or wounds Neurologic Neurologic: Denies abnormal speech, focal weakness, headache(s), loss of vision, numbness, paresthesias or sensory deficit Hematologic/Lymphatic Hematologic/Lymphatic: Denies easy bleeding, easy bruising or lymphadenopathy Vital Signs Vital Signs Vital Signs: 08/29/24 09:16 08/29/24 09:16 Temperature 97.1 F L Temperature Source Temporal Pulse Rate 64 Respiratory Rate 20 H Respiratory Pattern Normal Blood Pressure 125/48 H Blood Pressure Mean 73 Blood Pressure Source Monitor Blood Pressure Position Semi-Fowlers Blood Pressure Location Left Arm Pulse Ox 93 Oxygen Delivery Method Room Air Weight Weight: 205 lb 6.548 oz Body Mass Index (BMI) 32.1 Physical Exam Const alert, oriented x3, no apparent distress and healthy appearing General Appearance: cooperative; Negative for combative or lethargic Orientation / Consciousness: awake Exam Limitations: no limitations HEENT Head and Scalp: normocephalic and atraumatic Eyes EOMs intact bilaterally General Eye: normal appearance of both eyes Neck full ROM General: trachea midline Resp normal respiratory effort and no use of accessory muscles Effort and Inspection: Negative for labored, stridor or audible wheezes Cardio regular rate and regular rhythm Back/Spine Cervical Spine: cervical ROM normal Extremity full ROM, normal capillary refill and no clubbing, cyanosis or edema Skin no rashes or lesions noted and no wounds Neuro oriented x3, CN's II-XII intact bilaterally, no focal motor deficits and no sensory deficits noted Psych thought process normal, cooperative, affect normal, speech normal and activity/motor behavior normal Results Lab / Micro Data 08/28/24 06:40 08/28/24 06:40 Labs: Laboratory Results - last 24 hr 08/28/24 06:40: Blood Type A POSITIVE, Antibody Screen NEGATIVE, Crossmatch See Detail Assessment & Plan Assessment/Plan (1) 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
[2024-08-29] MEDS: Cefazolin 2 GM in Syringe IV (10:47)
[2024-08-29 11:07] LABS: Bedside Glucose 175 mg/dL (74-106)
--- NOTE | 2024-08-29 13:37 | PCM.POST.ANE ---
Anesthesia: Postop Eval I Current Vital Signs Temperature: 99.1 F Pulse Rate: 63 Blood Pressure: 104/58 Respiratory Rate: 14 Pulse Ox: 96 Oxygen Delivery Method: Simple Mask Oxygen Flow Rate (L/min): 8 Assessment Airway patent: Yes Spontaneous unlabored respirations: Yes Mental status: Awake and Calm nausea: No Vomiting: No Anesthesia Complication: No Fluid Hydration Crystalloid volume administer (ml): 500 Total IV fluid infused: 500 Progress Note Anesthesia document: Postop Eval 1 completed: Yes
--- NOTE | 2024-08-29 14:33 | POSTOPAN2_ITS ---
Anesthesia Postop Eval I Sum Postop Eval Completion status Anesthesia document: Postop Eval 1 completed: Yes Anesthesia Postop Eval I Summary Anesthesia Postop Eval I Summary: Anesthesia Postop Eval I: Assessment Summary Airway patent Yes 08/29/24 13:37 KIDNEY [email or web address] Spontaneous unlabored Yes 08/29/24 13:37 KIDNEY [email or web address] respirations Mental status Awake,Calm 08/29/24 13:37 KIDNEY [email or web address] nausea No 08/29/24 13:37 KIDNEY [email or web address].[email or web address] Vomiting No 08/29/24 13:37 KIDNEY [email or web address].[email or web address] Anesthesia Postop Eval I: Fluid Summary Crystalloid volume administer 500 08/29/24 13:37 KIDNEY [email or web address].GDOTT (ml) Colloids volume administered ( ml) Blood Product volume administered (ml) Total IV fluid infused 500 08/29/24 13:37 KIDNEY [email or web address].[email or web address] Anesthesia Postop Eval I: Summary Notes Anesthesia Complication No 08/29/24 13:37 KIDNEY [email or web address].[email or web address] Anesthesia Complication Comment: Post-operative progress note Anesthesia: Postop Eval II Evaluation Mental status: Awake Pain Level: 0 nausea: No Vomiting: No
--- NOTE | 2024-08-29 14:33 | PCM.POSTANE2 ---
Anesthesia Postop Eval I Sum Postop Eval Completion status Anesthesia document: Postop Eval 1 completed: Yes Anesthesia Postop Eval I Summary Anesthesia Postop Eval I Summary: Anesthesia Postop Eval I: Assessment Summary Airway patent Yes 08/29/24 13:37 FISHERIES ENFORCEMENT [email or web address].[email or web address] Spontaneous unlabored Yes 08/29/24 13:37 FISHERIES ENFORCEMENT OFFICER.[email or web address] respirations Mental status Awake,Calm 08/29/24 13:37 FISHERIES ENFORCEMENT OFFICER.GDOTT nausea No 08/29/24 13:37 FISHERIES ENFORCEMENT OFFICER.GDOTT Vomiting No 08/29/24 13:37 FISHERIES ENFORCEMENT OFFICER.GDOTT Anesthesia Postop Eval I: Fluid Summary Crystalloid volume administer 500 08/29/24 13:37 FISHERIES ENFORCEMENT OFFICER.GDOTT (ml) Colloids volume administered ( ml) Blood Product volume administered (ml) Total IV fluid infused 500 08/29/24 13:37 FISHERIES ENFORCEMENT OFFICER.GDOTT Anesthesia Postop Eval I: Summary Notes Anesthesia Complication No 08/29/24 13:37 FISHERIES ENFORCEMENT OFFICER.GDOTT Anesthesia Complication Comment: Post-operative progress note Anesthesia: Postop Eval II Evaluation Mental status: Awake Pain Level: 0 nausea: No Vomiting: No
--- NOTE | 2024-08-29 15:15 | OP.PCM_ITS ---
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 (exposed bone from transmetatarsal amputation dehiscence) Post-Operative Diagnosis: Same Surgery/Procedure Performed: 1) Right tibial nerve Regenerative Peripheral Nerve Interface (RPNI), CPT Codes: 56192 (muscle harvest for tissue graft) and 00850 (implantation of nerve into muscle) 2) Right superficial peroneal nerve Regenerative Peripheral Nerve Interface (RPNI), CPT Codes: 40479 (muscle harvest for tissue graft) and 91104 (implantation of nerve into muscle) 3) Right deep peroneal nerve Regenerative Peripheral Nerve Interface (RPNI), CPT Codes: 32453 (muscle harvest for tissue graft) and 46257 (implantation of nerve into muscle) parts and service manager: No Type of Anesthesia: General RN Documented Start/Stop Times: Operation Date: 08/29/24 10:30 Case Time Into Pre-Op 08/29/24 08:44 Out of Pre-Op 08/29/24 10:34 Anesthesia Start 08/29/24 10:38 Into Room 08/29/24 10:38 Procedure Start 08/29/24 11:18 Procedure End 08/29/24 13:23 Anesthesia End 08/29/24 13:29 Out of Room 08/29/24 13:29 Into Recovery 08/29/24 13:32 Procedure Start Time: 12:30 Procedure Stop Time: 12:50 Select all DRAINS/GRAFTS/IMPLANTS that apply: None Estimated Blood Loss: Minimal Specimen collected: No Description of surgery: INDICATIONS: Rohit Thompson is an 89-year-old male with past medical history of right lower extremity wound who presents today for amputation below the knee with vascular and plastic surgery. The risks and benefits were discussed with the patient and they were in agreement with proceeding to surgery. I marked the limb with the patient in preop holding and they were in agreement that we were removing the correct leg. We discussed in particular bleeding, infection, wound problems with need for repeat surgeries (possible limb shortening), and phantom limb pain/neuroma pain/residual limb pain (and no guarantees that interventions on the nerves will prevent these problems). They also understood the risk of increased operative time. They elected to proceed. OPERATIVE DETAILS: Patient was correctly identified in preoperative holding and taken back to the operating room where a timeout was performed. They were administered general anesthesia and the right leg was prepped and draped in sterile fashion with a stockinette placed over the foot. Care was taken to pad all bony prominences and protect the peripheral nerves for safe surgery. I was the promotional advertising assistant surgeon for the below-knee amputation (assisted Dr. Earl White from vascular surgery). Please see his separate operative note for this portion of the case. Following removal of the leg and control the vessels, the tibial, superficial peroneal, and deep peroneal nerves had also been identified and tagged. While the patient was doing well from a hemodynamics standpoint and tolerating anesthesia well, we decided to not prolong the operation for targeted muscle reinnervation given the patient's multiple comorbidities. We decided to perform our RPNI procedures instead (which was the plan for the operation as discussed with the family and the patient preoperatively). Several small muscle grafts from the long axis of the tibialis posterior muscle in line with the fibers were created with sharp dissection using scissors. These grafts measured 1 x 3 cm and were 0.5 cm thick. The above nerves were inserted into the middle of the muscle grafts using a 7-0 Prolene suture under loupe magnification to suture the epineureum to the fascia. The muscle grafts were then wrapped around the stump with a 3-0 Vicryl suture, and the nerves were implanted deep within the below knee amputation wound (at the base of the wound) so as not to rest in a pressure location and be posterior to the bony prominences. At this point sharp bony edges were filed with a rasp, eliminating any bony prominences over the anterior aspect of the tibia. Further hemostasis was obtained with Bovie electrocautery. The fascia of the anterior and posterior muscle flaps were approximated with interrupted 0 PDS [id number] sutures. The skin was approximated with 3-0 PDS deep dermal sutures followed by hola. An incisional wound VAC was then placed. The patient was placed in a knee immobilizer to keep the knee straight. The patient tolerated the procedure well. All counts were correct at the end of the case. They were taken to the PACU in stable condition. Surgical Findings: * We are able to identify the major nerves of the lower extremity and perform RPNI * Wound from vascular surgery amputation was closed by plastic surgery without significant tension with good padding over the tibia and the fibula. Complications Complications: No Admit VTE Documentation VTE Mechan Device Prophylaxis: SCD's
[2024-08-29 16:01] LABS: Bedside Glucose 220 mg/dL (74-106)
[2024-08-29 17:40] LABS: Bedside Glucose 236 mg/dL (74-106)
[2024-08-29] MEDS: HYDROmorphone Inj 0.2 MG/ML SYRINGE IV (17:49)
[2024-08-29] MEDS: 0.9% Saline Lock 10 ML Syringe IV ×2 (17:50→19:06)
[2024-08-29] MEDS: Menthol/Lanolin/Calamine/Znox 113 GM Tube 1 APPLIC TOPICAL ×2 (17:53→21:31)
[2024-08-29] MEDS: Heparin Injection (Vial) 5,000 UNIT/ML VIAL 5000 UNIT SC ×2 (17:53→21:31)
[2024-08-29] MEDS: Insulin Lispro 100 UNIT/ML INSULN.PEN SC ×2 (17:54→21:31)
--- NOTE | 2024-08-29 18:18 | PCM.RX.CS ---
Consult Antibiotic Management Pharmacy has been consulted to manage selected antibiotic: Vancomycin Type of Intervention Type of Consult: New start Suspected Infection Suspected Infection: Skin/Soft tissue Labs Labs: Sodium 134 mmol/L (133-145) 08/28/24 06:40 Potassium 4.4 mmol/L (3.3-5.1) 08/28/24 06:40 Chloride 93 mmol/L (98-108) L 08/28/24 06:40 Carbon Dioxide 24.9 mmol/L (21.0-32.0) 08/28/24 06:40 Anion Gap 16 (5-15) H 08/28/24 06:40 BUN 76 mg/dL (4-19) H 08/28/24 06:40 Creatinine 5.77 mg/dL (0.70-1.20) H 08/28/24 06:40 Est GFR (MDRD) Non-Af 9 (>60) L 08/28/24 06:40 BUN/Creatinine Ratio 13.2 RATIO (10-20) 08/28/24 06:40 Glucose 93 mg/dL (70-99) 08/28/24 06:40 Pharmacy Plan for Drug Dosing Pharmacy Plan for Drug Dosing: NEW START IV VANCOMYCIN Consulting Physician: Dr. White Indication: Wound infection- Continuing outpatient antibiotics from home prior to admission Goal Trough: 15-20 SrCr: patient on HD- gets treatments // CrCl: n/a Comments: Patient had vancomycin continued from home upon admission. Patient is a dialysis patient who gets HD // and a dose of 750mg of vancomycin with each HD treatment. Vancomycin Dose: Will dose patient based on pre-HD levels. Per EMR, patient's next HD session is , 08/30/24. Will order a random vancomycin trough with AM labs to determine post-HD dose tomorrow. Further dosing will be dependent on pre-HD levels. Pending Level: *RANDOM* level 08/30/24 with AM labs Pharmacy Service will continue to monitor and adjust dosing as required.
--- NOTE | 2024-08-29 19:00 | OP.PCM_ITS ---
Operative Report (Standard) Operative Information Date of Procedure: 08/29/24 Pre-Operative Diagnosis: Atherosclerosis with nonhealing right forefoot amputation Post-Operative Diagnosis: Same Surgery/Procedure Performed: Right below the knee amputation school laboratory technician: No Type of Anesthesia: General RN Documented Start/Stop Times: Operation Date: 08/29/24 10:30 Case Time Into Pre-Op 08/29/24 08:44 Out of Pre-Op 08/29/24 10:34 Anesthesia Start 08/29/24 10:38 Into Room 08/29/24 10:38 Procedure Start 08/29/24 11:18 Procedure End 08/29/24 13:23 Anesthesia End 08/29/24 13:29 Out of Room 08/29/24 13:29 Into Recovery 08/29/24 13:32 Out of Recovery 08/29/24 16:00 Into Phase II Recovery 08/29/24 16:01 Out of Phase II 08/29/24 16:50 Procedure Start Time: 11:20 Procedure Stop Time: 13:20 Select all DRAINS/GRAFTS/IMPLANTS that apply: None Estimated Blood Loss: 500 Specimen collected: Yes Description of specimen(s) removed: Right lower leg and foot Description of surgery: HPI: Patient is an 89-year-old male with nonhealing right foot amputation despite revascularization efforts. He has decided that further limb salvage efforts should not be undertaken so he presents now for below the knee amputation. Procedure will be performed in conjunction with Dr. Damico who will perform a regenerative peripheral nerve interface which he will dictate independently. Description of procedure: Upon obtaining form consent and verification correct patient procedure today patient was taken to the operating was placed under anesthesia. He was positioned prepped and draped in usual sterile fashion a timeout is performed. Skin incision was marked with posterior flap configuration and incision made with 10 blade. Bovie electrocautery was used dissect down to the subcutaneous tissue level the fascia which was then incised along the anterior aspect of the lower leg over both the posterior superficial and the anterior and lateral compartments. Muscle of the anterior and lateral compartments and divided with Bovie dissection carried down to the neurovascular bundle. The anterior tibial artery and vein were then ligated with silk ties and medium clips and then divided. These had to be further reinforced with suture ligation as the vessels were significantly calcified and difficult to compress and occlude. The appropriate nerves were identified by Dr. Damico intact for his planned RPNI. Further dissection was then carried along the medial aspect of the lower leg dividing the fascia of the posterior compartment distally and freeing the musculature from the medial aspect of the tibia as well as the muscle of the anterior compartment from the lateral aspect of the tibia. Blunt dissection was dissected the posterior aspect the tibia and all connective tissue mobilized with a periosteal elevator. The tibia was then divided with a reciprocating saw with an anterior bevel and the bone edges smoothed with a joesph p. Bovie dissection and blunt dissection were then used to free connective tissue from the fibula and a periosteal elevator utilized to further mobilize the tissue. This was then divided with a reciprocating saw and then further trimmed with a rongeur. An amputation knife was then used to leave the posterior flap and remove the specimen from the remaining lamina. The posterior tibial and peroneal arteries and veins were then clamped to obtain hemostasis. These vessels were then dissected free more proximally and ligated with silk ties, and suture-ligated. Again the nerves were identified and tagged by Dr. Dmaico. The soleus muscle was trimmed to allow better flap tension-free closure. It was then inspected for hemostasis after which Dr. Damico performed the RPNI which he will dictate independently. The incision was then closed with PDS followed by Vicryl and hola for the skin. A Prevena wound VAC was then applied followed by a knee immobilizer. The patient was then taken the recovery area with anticipate admission to the [facility]. Surgical Findings: See above Complications Complications: No
[2024-08-29] MEDS: HYDROmorphone 0.5 MG/0.5 ML SYRINGE IV ×2 (19:05→21:40)
[2024-08-29] MEDS: Clopidogrel Bisulfate 75 MG Tablet PO (21:32)
[2024-08-29] MEDS: Acetaminophen 500 MG Tablet 1000 MG PO (21:32)
[2024-08-29] MEDS: Juven (unflavored) Packet 1 PACKET PO (21:32)
[2024-08-29] MEDS: MELATONIN 3 MG TABLET PO (21:41)
[2024-08-29 23:30] LABS: Bedside Glucose 218 mg/dL (74-106)
[2024-08-30] VITALS (18 sets, daily range): BP systolic 104–201; BP diastolic 39–74; PULSE 48–84; RESP 13–24; TEMP 36.3–37.1; O2SAT 84–100
[2024-08-30] MEDS: HYDROmorphone 0.5 MG/0.5 ML SYRINGE IV ×2 (03:53→06:13)
[2024-08-30] MEDS: 0.9% Saline Lock 10 ML Syringe IV ×3 (03:53→21:03)
[2024-08-30] MEDS: Heparin Injection (Vial) 5,000 UNIT/ML VIAL 5000 UNIT SC ×3 (06:19→21:03)
[2024-08-30] MEDS: Insulin Lispro 100 UNIT/ML INSULN.PEN SC ×4 (06:20→21:04)
[2024-08-30] MEDS: Acetaminophen 500 MG Tablet 1000 MG PO ×3 (06:20→21:03)
[2024-08-30 06:41] LABS: Absolute Lymphocyte Count 1.31 X10^3/uL (0.83-4.51); Absolute Neutrophil Count 7.1 X10^3/uL (2.0-7.7); Basophil# 0.05 X10^3/uL; Basophil% 0.5 % (0-1); Eosinophil# 0.09 X10^3/uL; Eosinophils% 0.9 % (0-5); Hematocrit 26.9 % (40-54); Hemoglobin 7.9 g/dL (13.0-16.5); Lymphocyte # 1.31 X10^3/ul (0.83-4.51); Lymphocyte % 13.4 % (19-41); Mean Corp Hgb Conc 29.4 g/dL (32-36); Mean Corpuscular Hgb 26.8 pg (27.0-32.0); Mean Corpuscular Volume 91.2 fL (80-94); Mean Platelet Vol. 10.7 fl (6.2-12.0); Monocyte# 1.19 X10^3/uL; Monocyte% 12.2 % (0-10); NRBC Flagged by Analyzer 0 % (0-5); Neutrophil # 7.08 X10^3/uL (2.7-7.7); Neutrophil % 72.4 % (47-70); Platelet Count 279 K/mm3 (150-450); RBC Distribution Width CV 16.3 % (11.6-14.6); RBC Distribution Width SD 54.3 fl (35.1-43.9); Red Blood Count 2.95 M/mm3 (4.6-6.2); White Blood Count 9.8 K/mm3 (4.4-11.0)
[2024-08-30 06:59] LABS: Anion Gap 14 (5-15); BUN 60 mg/dL (4-19); Calcium,Total 8.7 mg/dL (7.6-11.0); Carbon Dioxide 27.5 mmol/L (21.0-32.0); Chloride 92 mmol/L (98-108); Creatinine, Serum 5.42 mg/dL (0.70-1.20); EST Glomerular Filtration Rate 10 (>60); Estimated Creatinine Clearance 12.64 ml/min (50-250); Glucose 196 mg/dL (70-99); Potassium 5.2 mmol/L (3.3-5.1); Sodium Level 134 mmol/L (133-145)
[2024-08-30 07:00] LABS: Bedside Glucose 195 mg/dL (74-106)
[2024-08-30 07:01] LABS: Vancomycin, Random Level 12.3 ug/mL (0.0-15.0)
[2024-08-30] MEDS: Aspirin E.C. 81 MG Tablet PO (07:34)
[2024-08-30] MEDS: Juven (unflavored) Packet 1 PACKET PO (07:34)
[2024-08-30] MEDS: Cholecalciferol (Vit D3) 125 MCG CAPSULE (5,000 UNITS) PO (07:35)
--- NOTE | 2024-08-30 08:09 | PCM.RX.CS ---
Consult Antibiotic Management Pharmacy has been consulted to manage selected antibiotic: Vancomycin Type of Intervention Type of Consult: Follow-up Suspected Infection Suspected Infection: Skin/Soft tissue Prior Doses of Antibiotics Prior Doses of Antibiotics Received/Current Regimen: Vancomycin has been continued from outpatient therapy 08/30/24 @ 1800 Vancomycin 750mg after dialysis Labs Labs: Sodium 134 mmol/L (133-145) 08/30/24 05:47 Potassium 5.2 mmol/L (3.3-5.1) H 08/30/24 05:47 Chloride 92 mmol/L (98-108) L 08/30/24 05:47 Carbon Dioxide 27.5 mmol/L (21.0-32.0) 08/30/24 05:47 Anion Gap 14 (5-15) 08/30/24 05:47 BUN 60 mg/dL (4-19) H 08/30/24 05:47 Creatinine 5.42 mg/dL (0.70-1.20) H 08/30/24 05:47 Est GFR (MDRD) Non-Af 10 (>60) L 08/30/24 05:47 BUN/Creatinine Ratio 11.0 RATIO (10-20) 08/30/24 05:47 Glucose 196 mg/dL (70-99) H 08/30/24 05:47 Random Vancomycin 12.3 ug/mL (0.0-15.0) 08/30/24 05:47 Dosing Weight Weight used for dosin kg Estimated Creatinine Clearance Estimated Creatinine Clearance: 12 Goal Trough Goal Trough: 15-20 mcg/mL Pharmacy Plan for Drug Dosing Pharmacy Plan for Drug Dosing: Vancomycin 750mg x1 after dialysis on 08/30/24 Random Vancomycin level ordered for 0600 on 09/01/24 Pharmacy Service will continue to monitor and adjust dosing as required. Follow-Up Labs Follow-Up Labs: Trough: Other Date/Time Labs Ordered Labs to be done on [date and time ordered]: 09/01/24 @ random level of Vancomycin
--- NOTE | 2024-08-30 08:49 | PN.SURG_ITS ---
Subjective Subjective Doing well postop day 1. He had some initial pain in the PACU that was managed with a femoral nerve block which improved his pain greatly and now he is in minimal pain and eating breakfast on rounds. Vital signs are stable and his hemoglobin was 7.9 this morning Objective Data Objective Data Vital Signs: Vital Signs Temp Pulse Resp BP Pulse Ox O2 Del Method O2 Flow Rate 98.7 F 54 L 20 H 114/61 90 Nasal Cannula 2 08/30/24 06:09 08/30/24 06:09 08/30/24 06:09 08/30/24 06:09 08/30/24 07:33 08/30/24 07:33 08/30/24 07:33 Oxygen Flow Rate (L/min) 2 Oxygen Delivery Method Nasal Cannula Weight: 205 lb 4.006 oz Body Mass Index (BMI) 0.0 Intake & Output: Intake and Output for Last 24 Hours 08/28/24 08/29/24 08/30/24 23:59 23:59 23:59 Intake Total 1120 / 1120 375 / 375 Balance 1120 / 1120 375 / 375 Lab / Micro Data 08/30/24 05:47 08/30/24 05:47 Labs: Laboratory Results - last 24 hr 08/29/24 09:07: POC Glucose 175 H 08/29/24 15:43: POC Glucose 220 H 08/29/24 17:21: POC Glucose 236 H 08/29/24 21:29: POC Glucose 218 H 08/30/24 05:47: WBC 9.8, RBC 2.95 L, Hgb 7.9 L, Hct 26.9 L, MCV 91.2, MCH 26.8 L , MCHC 29.4 L, RDW Std Deviation 54.3 H, RDW Coeff of Frances 16.3 H, Plt Count 279, MPV 10.7, Immature Gran % (Auto) 0.600, Neut % (Auto) 72.4 H, Lymph % (Auto) 13.4 L, [place] % (Auto) 12.2 H, Eos % (Auto) 0.9, Baso % (Auto) 0.5, Absolute Neuts (auto) 7.1, Absolute Lymphs (auto) 1.31, Nucleated RBC % 0, Sodium 134, P otassium 5.2 H, Chloride 92 L, Carbon Dioxide 27.5, Anion Gap 14, BUN 60 H, C reatinine 5.42 H, Estim Creat Clear Calc 12.64 L, Est GFR (MDRD) Non-Af 10 L, BUN/Creatinine Ratio 11.0, Glucose 196 H, Calcium 8.7, Random Vancomycin 12.3 08/30/24 06:18: POC Glucose 195 H Physical Exam Narrative Right lower extremity: Knee immobilizer in place. No signs of bleeding or compromise of the stump site. Left lower extremity: No swelling in the calf. Discussed with nursing placing an SCD Const alert and oriented x3 Resp normal respiratory effort Cardio Rate: regular rate Assessment & Plan Assessment/Plan (1) Amputation of right lower extremity below knee: PLAN: Doing well postop day 1 Expected course Getting dialysis Dispo plan for patient per vascular surgery team Plan to be evaluated by Mahendra team today for custom splint Follow-up with me at the wound care center on Tuesday, 03 September 2024. Incisional VAC should stay until then. Charges/Coding Procedures Integumentary [id number]: [id number] Global Visit
[2024-08-30] MEDS: oxyCODONE 5 MG Tablet PO ×3 (08:51→21:02)
[2024-08-30] MEDS: 0.9% Normal Saline 1,000 ML IV.SOLN. 1000 ML OPERA.SITE (09:33)
[2024-08-30] MEDS: PureFlow B 2K Dialysis Soln 1 BAG 6 BAG PF (09:33)
[2024-08-30] MEDS: Epoetin Alfa epbx 10,000 UNIT/ML 20000 UNIT IV (09:49)
--- NOTE | 2024-08-30 10:51 | PCM.CONS.R ---
Assessment & Plan Assessment/Plan (1) End stage renal disease: (2) Anemia of chronic disease: PLAN: Plan Patient has history of ESRD and is on hemodialysis Tuesday at [facility], patient last dialyzed Tuesday. Patient is compliant with dialysis. We will plan for dialysis today over 4 hours on 2K bath attempting fluid removal as patient/blood pressure tolerates. Outpatient EDW was 91 kg. Likely EDW will be lowered by time of hospital discharge. Patient has history of anemia of chronic disease. Will monitor hemoglobin trends. Patient will receive CRYSTAL with dialysis today. Assessment and plan reviewed with Dr. Alva. HPI Consult Data Date of Consult: 08/30/24 HPI Narrative HPI Narrative: PERLA LUBIN, is a 89 M who has history of nonhealing right foot wound and peripheral vascular disease of right lower extremity who was directly admitted to the hospital to undergo right BKA. Nephrology consulted as patient has history of ESRD and is on hemodialysis. Patient currently dialyzes at [facility] Tuesday to Tuesday schedule. Last dialysis was Tuesday. Patient is currently undergoing hemodialysis. He denies any complaints. Patient is alert and oriented. 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 ESRD (end stage renal disease) Type 2 diabetes mellitus with foot ulcer Diabetes mellitus with diabetic 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 Pre-op testing Loose, teeth Wears glasses Cancer Dialysis patient Kidney disease Non-smoker Edema Syncope Chronic diastolic (congestive) heart failure (04/18/20) Paroxysmal atrial fibrillation Sinus bradycardia Type 2 diabetes mellitus Hyperkalemia Swelling of both lower extremities HLD (hyperlipidemia) Left bundle-branch block 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 Abnormal electrocardiogram Home Medications ?Medication ?Instructions ?Recorded ?Last Taken ?Type aspirin 81 mg tablet,delayed 81 mg PO DAILY heart [facility] 07/01/20 08/28/24 History release (Adult Aspirin Regimen) torsemide 100 mg tablet 100 mg PO MOWEFR water pill 04/14/24 08/27/24 History insulin glargine 100 unit/mL (3 20 unit (0.2 mL) subcut DINNER 04/24/24 08/28/24 Rx mL) subcutaneous pen diabetes 30 days #0 mL insulin lispro 100 unit/mL See Protocol subcut ACHS dm 05/04/24 08/28/24 History subcutaneous pen (Humalog KwikPen (U-100) Insulin) nut.tx.gluc.intol,lac-free,soy 240 ml PO DAILY SUPPLEMENT 06/04/24 06/05/24 History (Glucerna oral liquid) sennosides 8.6 mg-docusate sodium 1 tab-cap PO BID PRN PRN 06/04/24 06/05/24 History 50 mg tablet (Stimulant Laxative Constipation Plus) clopidogrel 75 mg tablet 75 mg PO QHS BLOOD THINNER 07/02/24 08/26/24 History acetaminophen 325 mg tablet 650 mg PO Q8H PRN PRN Pain 1-10 Or 07/13/24 Unknown History Fever >100.7 cholecalciferol (vitamin D3) 125 125 mcg PO DAILY SUPPLEMENT 07/13/24 08/28/24 History mcg (5,000 unit) capsule insulin lispro 100 unit/mL 10 unit subcut TID DIABETES 07/13/24 08/28/24 History subcutaneous pen albuterol sulfate 2.5 mg/3 mL 2.5 mg (3 mL) inhalation Q2H PRN 07/20/24 Unknown Rx (0.083 %) solution for nebulization PRN SOB &/OR WHEEZING #0 mL benzocaine 15 mg-menthol 3.6 mg 2 mariaa mucous membrane Q2H PRN PRN 07/20/24 Unknown Rx lozenges (Sore Throat (benzocaine sore throat #0 ea with menthol)) heparin (porcine) 5,000 unit/mL 5,000 unit subcut Q8 ON HOLD #0 mL 07/20/24 08/28/24 Rx injection solution menthol 0.44 %-zinc oxide 20.6 % 1 applic topical BID SKIN 07/20/24 08/28/24 Rx topical ointment (Calmoseptine) IRRITATION #0 grams oxycodone 5 mg tablet 2.5 mg (1/2 x 5 mg) PO Q4H PRN PRN 08/15/24 08/28/24 Rx Pain Score 4-10 30 days #60 tabs oxycodone 5 mg tablet 2.5 mg (1/2 x 5 mg) PO DAILY pain 08/22/24 08/28/24 Rx 30 days #15 tabs sodium hypochlorite 0.25 % 1 applic topical DAILY TOPICAL 08/28/24 Unknown History solution (HySept) arginine 7 gram-glutam 7 1 packet PO BID cellulitis 08/29/24 08/28/24 History gram-CaHMB 1.5 niig-qyrej-cv-min oral pwd pkt (Dustin (with collagen)) vancomycin 750 mg intravenous 750 mg IV .COMPLEX done at dialysis 08/29/24 08/25/24 History solution Allergy/AdvReac Type Severity Reaction Status Date / Time pioglitazone (From Actos) Allergy fatigue Verified 08/29/24 09:15 simvastatin (From Zocor) Allergy myalgia Verified 08/29/24 09:15 sitagliptin (From Januvia) Allergy unknown Verified 08/29/24 09:15 Family History Mother Hypertension Father Diabetes COPD (chronic obstructive pulmonary disease) Surgical History Hx of amputation History of incision and drainage Hx of foot surgery History of cataract extraction History of ligation of vein History of arteriovenostomy for renal dialysis History of inguinal hernia repair History of appendectomy Social History housing: senior care current occupational status: retired Smoking Status: Never smoker alcohol intake: never substance use type: does not use caffeine: Yes Type: coffee Number of servings: 1 what type of physical activity do you participate in: none seatbelt use: always do you feel safe at home: Yes ROS ROS Narrative As in HPI Physical Exam Narrative Alert and oriented x 3, no apparent distress S1, S2, RRR Lungs sound clear Abdomen soft Brace to right knee/leg. Edema to left lower leg Left forearm AV fistula accessed for hemodialysis Lab / Micro Data 08/30/24 05:47 08/30/24 05:47 Labs: Laboratory Results - last 24 hr 08/29/24 09:07: POC Glucose 175 H 08/29/24 15:43: POC Glucose 220 H 08/29/24 17:21: POC Glucose 236 H 08/29/24 21:29: POC Glucose 218 H 08/30/24 05:47: WBC 9.8, RBC 2.95 L, Hgb 7.9 L, Hct 26.9 L, MCV 91.2, MCH 26.8 L, MCHC 29.4 L, RDW Std Deviation 54.3 H, RDW Coeff of Frances 16.3 H, Plt Count 279, MPV 10.7, Immature Gran % (Auto) 0.600, Neut % (Auto) 72.4 H, Lymph % (Auto) 13.4 L, [place] % (Auto) 12.2 H, Eos % (Auto) 0.9, Baso % (Auto) 0.5, Absolute Neuts (auto) 7.1, Absolute Lymphs (auto) 1.31, Nucleated RBC % 0, Sodium 134, Potassium 5.2 H, Chloride 92 L, Carbon Dioxide 27.5, Anion Gap 14, BUN 60 H, Creatinine 5.42 H, Estim Creat Clear Calc 12.64 L, Est GFR (MDRD) Non-Af 10 L, BUN/Creatinine Ratio 11.0, Glucose 196 H, Calcium 8.7, Random Vancomycin 12.3 08/30/24 06:18: POC Glucose 195 H
--- NOTE | 2024-08-30 11:37 | CASEMGMT ---
Addendum entered by Alanna Gaston 08/30/24 14:54: Updates sent to [facility]. Alanna Gaston DC Planning Asst. Original Note: Discharge Planning Pt resides at [facility] and wishes to return (per pt and his ARNOL Jey). Jey has several concerns regarding [facility] (pickup times and billing). Concerns forwarded to Xena Raymundo. Pt also has an appt scheduled with an elder law tax associate attorney @ on 08/31. This tax associate attorney can meet pt here or at [facility]. SW updated. Alanna Gaston DC Planning Asst.
[2024-08-30 11:40] LABS: Bedside Glucose 192 mg/dL (74-106)
--- NOTE | 2024-08-30 12:57 | PN.SURG_ITS ---
Subjective Subjective I saw Mr. Thompson lying in bed near the end of dialysis. He reports his pain is well controlled at this time; phantom sensations but not painful. Incision site with Prevena dressing intact and maintaining seal, no drainage output. Objective Data Objective Data Vital Signs: Vital Signs Temp Pulse Resp BP Pulse Ox O2 Del Method O2 Flow Rate 98.2 F 57 L 14 118/56 L 95 Room Air 3 08/30/24 11:00 08/30/24 12:28 08/30/24 12:28 08/30/24 12:28 08/30/24 11:00 08/30/24 12:28 08/30/24 11:00 Oxygen Flow Rate (L/min) 3 Oxygen Delivery Method Room Air Weight: 205 lb 4.006 oz Body Mass Index (BMI) 0.0 Intake & Output: Intake and Output for Last 24 Hours 08/28/24 08/29/24 08/30/24 23:59 23:59 23:59 Intake Total 1120 / 1120 675 / 675 Balance 1120 / 1120 675 / 675 Lab / Micro Data 08/30/24 05:47 08/30/24 05:47 Labs: Laboratory Results - last 24 hr 08/29/24 15:43: POC Glucose 220 H 08/29/24 17:21: POC Glucose 236 H 08/29/24 21:29: POC Glucose 218 H 08/30/24 05:47: WBC 9.8, RBC 2.95 L, Hgb 7.9 L, Hct 26.9 L, MCV 91.2, MCH 26.8 L , MCHC 29.4 L, RDW Std Deviation 54.3 H, RDW Coeff of Frances 16.3 H, Plt Count 279, MPV 10.7, Immature Gran % (Auto) 0.600, Neut % (Auto) 72.4 H, Lymph % (Auto) 13.4 L, [place] % (Auto) 12.2 H, Eos % (Auto) 0.9, Baso % (Auto) 0.5, Absolute Neuts (auto) 7.1, Absolute Lymphs (auto) 1.31, Nucleated RBC % 0, Sodium 134, P otassium 5.2 H, Chloride 92 L, Carbon Dioxide 27.5, Anion Gap 14, BUN 60 H, C reatinine 5.42 H, Estim Creat Clear Calc 12.64 L, Est GFR (MDRD) Non-Af 10 L, BUN/Creatinine Ratio 11.0, Glucose 196 H, Calcium 8.7, Random Vancomycin 12.3 08/30/24 06:18: POC Glucose 195 H 08/30/24 11:23: POC Glucose 192 H Physical Exam Const alert, oriented x3 and no apparent distress General Appearance: cooperative and comfortable HEENT normocephalic, hearing grossly normal bilaterally, external ears normal and external nose normal Nose: external nose normal Eyes EOMs intact bilaterally General Eye: normal appearance of both eyes Neck General: normal visual inspection and trachea midline Resp normal respiratory effort, normal air movement, no retractions and no use of accessory muscles Effort and Inspection: able to speak in complete sentences Cardio regular rate and regular rhythm Extremity Extremity Narrative: R BKA site with Prevena dressing intact, maintaining seal. No drainage in the cannister. No focal edema/hematoma. Amputation stump soft to palpation throughout. Visible skin viable with no evidence of ischemia. Neuro oriented x3, moves all extremities and no focal motor deficits Psych mental status grossly normal Appearance: grossly normal Attitude: calm and engaged Activity / Motor Behavior: appropriate eye contact Speech: normal speech Judgement: judgement good Assessment & Plan Assessment/Plan (1) Amputation of right lower extremity below knee: PLAN: Plan Incision site satisfactory in appearance; knee immobilizer in place; Prevena maintaining seal. Stationary Engineer Supervisor to come this afternoon or tomorrow morning to apply rigid protective device with extension (order scanned to chart). Expected decrease in hgb following surgery; has chronic anemia with usual baseline ~9; Hgb this morning 7.9; will continue to monitor. Anticipate discharge tomorrow.
[2024-08-30] MEDS: Menthol/Lanolin/Calamine/Znox 113 GM Tube 1 APPLIC TOPICAL ×2 (14:50→21:08)
[2024-08-30 16:49] LABS: Bedside Glucose 287 mg/dL (74-106)
[2024-08-30] MEDS: Vancomycin HCl 750 MG in 0.9% Normal Saline (250mL Bag) 250 ML 250 MG IV (18:06)
[2024-08-30] MEDS: MELATONIN 3 MG TABLET PO (21:03)
[2024-08-30] MEDS: Clopidogrel Bisulfate 75 MG Tablet PO (21:08)
[2024-08-30 22:31] LABS: Bedside Glucose 285 mg/dL (74-106)
[2024-08-31] VITALS (7 sets, daily range): BP systolic 108–122; BP diastolic 41–55; PULSE 46–87; RESP 16–18; TEMP 36.3–36.8; O2SAT 95–97
[2024-08-31] MEDS: oxyCODONE 5 MG Tablet PO ×3 (01:02→21:38)
[2024-08-31] MEDS: Heparin Injection (Vial) 5,000 UNIT/ML VIAL 5000 UNIT SC ×3 (06:10→21:33)
[2024-08-31] MEDS: Acetaminophen 500 MG Tablet 1000 MG PO ×3 (06:10→21:32)
[2024-08-31] MEDS: Insulin Lispro 100 UNIT/ML INSULN.PEN SC ×4 (06:14→21:34)
[2024-08-31 06:43] LABS: Bedside Glucose 189 mg/dL (74-106)
[2024-08-31] MEDS: Cholecalciferol (Vit D3) 125 MCG CAPSULE (5,000 UNITS) PO (08:18)
[2024-08-31] MEDS: Torsemide 100 MG Tablet PO (08:18)
[2024-08-31] MEDS: Aspirin E.C. 81 MG Tablet PO (08:18)
[2024-08-31 08:23] LABS: Absolute Lymphocyte Count 1.13 X10^3/uL (0.83-4.51); Absolute Neutrophil Count 5.3 X10^3/uL (2.0-7.7); Basophil# 0.05 X10^3/uL; Basophil% 0.6 % (0-1); Eosinophil# 0.24 X10^3/uL; Eosinophils% 3.1 % (0-5); Hematocrit 26.1 % (40-54); Hemoglobin 7.7 g/dL (13.0-16.5); Lymphocyte # 1.13 X10^3/ul (0.83-4.51); Lymphocyte % 14.5 % (19-41); Mean Corp Hgb Conc 29.5 g/dL (32-36); Mean Corpuscular Volume 91.6 fL (80-94); Mean Platelet Vol. 10.5 fl (6.2-12.0); Monocyte% 12.9 % (0-10); NRBC Flagged by Analyzer 0 % (0-5); Neutrophil # 5.32 X10^3/uL (2.7-7.7); Neutrophil % 68.4 % (47-70); Platelet Count 234 K/mm3 (150-450); RBC Distribution Width CV 16.1 % (11.6-14.6); RBC Distribution Width SD 53.4 fl (35.1-43.9); Red Blood Count 2.85 M/mm3 (4.6-6.2); White Blood Count 7.8 K/mm3 (4.4-11.0)
--- NOTE | 2024-08-31 08:28 | PCM.PN.SRG ---
Subjective Subjective I saw Mr Thompson this morning, he was sitting up in bed. He reports to feeling well. He states that if he is not moving his leg, he has no pain; with movement he notices pain but tolerable with current pain management regimen. He has the protector in place; he has some swelling, the straps are digging into his thigh a bit. No output from the Prevena vac. Objective Data Objective Data Vital Signs: Vital Signs Temp Pulse Resp BP Pulse Ox O2 Del Method O2 Flow Rate 97.3 F L 49 L 16 122/52 H 96 Room Air 2 08/31/24 06:23 08/31/24 06:23 08/31/24 06:23 08/31/24 06:23 08/31/24 06:23 08/31/24 06:23 08/30/24 21:37 Oxygen Flow Rate (L/min) 2 Oxygen Delivery Method Room Air Weight: 198 lb 13.711 oz Body Mass Index (BMI) 0.0 Intake & Output: Intake and Output for Last 24 Hours 08/29/24 08/30/24 08/31/24 23:59 23:59 23:59 Intake Total 1120 / 1120 1140 / 1140 Output Total 2400 / 2400 Balance 1120 / 1120 -1260 / -1260 Lab / Micro Data 08/31/24 08:02 08/30/24 05:47 Labs: Laboratory Results - last 24 hr 08/30/24 11:23: POC Glucose 192 H 08/30/24 16:32: POC Glucose 287 H 08/30/24 20:58: POC Glucose 285 H 08/31/24 06:13: POC Glucose 189 H 08/31/24 08:02: WBC 7.8, RBC 2.85 L, Hgb 7.7 L, Hct 26.1 L, MCV 91.6, MCH 27.0, MCHC 29.5 L, RDW Std Deviation 53.4 H, RDW Coeff of Frances 16.1 H, Plt Count 234, MPV 10.5, Immature Gran % (Auto) 0.500, Neut % (Auto) 68.4, Lymph % (Auto) 14.5 L, [place] % (Auto) 12.9 H, Eos % (Auto) 3.1, Baso % (Auto) 0.6, Absolute Neuts (auto) 5.3, Absolute Lymphs (auto) 1.13, Nucleated RBC % 0 Physical Exam Const alert, oriented x3 and no apparent distress General Appearance: cooperative and comfortable HEENT normocephalic, hearing grossly normal bilaterally, external ears normal and external nose normal Nose: external nose normal Eyes EOMs intact bilaterally General Eye: normal appearance of both eyes Neck General: normal visual inspection and trachea midline Resp normal respiratory effort, normal air movement, no retractions and no use of accessory muscles Effort and Inspection: able to speak in complete sentences Cardio regular rate and regular rhythm Extremity Extremity Narrative: R BKA site with Prevena dressing intact, maintaining seal. No drainage in the cannister. Generalized moderate edema, soft to palpation, no apparent ecchymosis. Amputation stump soft to palpation throughout. Visible skin viable with no evidence of ischemia. Neuro oriented x3, moves all extremities and no focal motor deficits Psych mental status grossly normal Appearance: grossly normal Attitude: calm and engaged Activity / Motor Behavior: appropriate eye contact Speech: normal speech Judgement: judgement good Assessment & Plan Assessment/Plan (1) Amputation of right lower extremity below knee: PLAN: Plan Wrapped the stump with CHRISTIAN bandaged, reapplied protective device, and elevated his leg on a few pillows. Continue with CHRISTIAN wrap and elevation to manage edema. Protector should be in place most of the time, removed for wound care/hygeine and PT as needed. Incision site satisfactory in appearance with Prevena vac in place. This will remain in place until his follow-up at the wound center on 09/03. His pain is well-controlled on current regimen. He had dialysis yesterday and tolerated this well. Hgb stable. Notified that he had some prolonged bleeding after decannulation from dialysis yesterday and some increased swelling in his LUE; per dialysis nurse concern for possible fistula stenosis contributing to these. While is here, will see if we can get AV fistula duplex. Would plan for fistulogram as needed on outpatient basis. He is stable for discharge back to [facility] today. I will see him in the vascular office as an outpatient in 3-4 weeks to evaluate and possibly begin staple removal, sooner as needed if any concerns arise. As of this afternoon, precert still pending for discharge back to [facility]
--- NOTE | 2024-08-31 08:30 | CASEMGMT ---
Social Work SAURAV spoke with KRISTOFER Marsh who states pt is doing well and can return to [place] today. SAURAV requested DC assistant reading teacher request precert be started for return to [facility]. Phone call with pt son in law Jey. Pt has a meeting with an Elder Law Wine Cellar Worker today at 3pm. SAURAV advised Ejy that pt will not be back to [facility] by 3pm today. Jey appreciative of information and states the meeting will be held here to day at 3. Nursing updated. Plan: Pt to return to [facility] when precert obtained. TERRI Zapata
--- NOTE | 2024-08-31 08:34 | PCM.DC.SUM ---
Providers Date of Admission: 08/29/24 Date of Discharge: 09/04/24 Primary Care Physician: Dr. Nando Wiggins MD Consultations 08/30/24 07:25 Consult: Nephrology Routine Consulting Provider: Manuel Alva Reason for Consult: Chronic HD EMERGENT Consult: No MD Notified: Yes Date Notified: 08/30/24 Time Notified: 07:25 Method of Notification: Answering Service Diagnosis Discharge Diagnosis (1) Amputation of right lower extremity below knee: Status: Acute Code(s): S88.111A - Complete traumatic amputation at level between knee and ankle, right lower leg, initial encounter Medications at Discharge Home Medications aspirin 81 mg tablet,delayed release (Adult Aspirin Regimen) 81 mg PO DAILY heart health 07/01/20 torsemide 100 mg tablet 100 mg PO MOWEFR water pill 04/14/24 insulin glargine 100 unit/mL (3 mL) subcutaneous pen 20 unit (0.2 mL) subcut DINNER diabetes 30 days #0 mL 04/24/24 insulin lispro 100 unit/mL subcutaneous pen (Humalog KwikPen (U-100) Insulin) See Protocol subcut ACHS dm 05/04/24 nut.tx.gluc.intol,lac-free,soy (Glucerna oral liquid) 240 ml PO DAILY SUPPLEMENT 06/04/24 sennosides 8.6 mg-docusate sodium 50 mg tablet (Stimulant Laxative Plus) 1 tab-cap PO BID PRN PRN Constipation 06/04/24 clopidogrel 75 mg tablet 75 mg PO QHS BLOOD THINNER 07/02/24 acetaminophen 325 mg tablet 650 mg PO Q8H PRN PRN Pain 1-10 Or Fever >100.7 07/13/24 cholecalciferol (vitamin D3) 125 mcg (5,000 unit) capsule 125 mcg PO DAILY SUPPLEMENT 07/13/24 insulin lispro 100 unit/mL subcutaneous pen 10 unit subcut TID DIABETES 07/13/24 albuterol sulfate 2.5 mg/3 mL (0.083 %) solution for nebulization 2.5 mg (3 mL) inhalation Q2H PRN PRN SOB &/OR WHEEZING #0 mL 07/20/24 benzocaine 15 mg-menthol 3.6 mg lozenges (Sore Throat (benzocaine with menthol)) 2 mariaa mucous membrane Q2H PRN PRN sore throat #0 ea 07/20/24 heparin (porcine) 5,000 unit/mL injection solution 5,000 unit subcut Q8 ON HOLD #0 mL 07/20/24 menthol 0.44 %-zinc oxide 20.6 % topical ointment (Calmoseptine) 1 applic topical BID SKIN IRRITATION #0 grams 07/20/24 oxycodone 5 mg tablet 2.5 mg (1/2 x 5 mg) PO Q4H PRN PRN Pain Score 4-10 30 days #60 tabs 08/15/24 oxycodone 5 mg tablet 2.5 mg (1/2 x 5 mg) PO DAILY pain 30 days #15 tabs 08/22/24 arginine 7 gram-glutam 7 gram-CaHMB 1.5 [id number]-min oral pwd pkt (Dustin (with collagen)) 1 packet PO BID cellulitis 08/29/24 Hospital Course Summary of Care Provided Hospital Course: Mr. Rohit Thompson is an 89 y/o male who underwent R BKA 08/29/2024. He tolerated surgery well. The amputation site has been satisfactory in appearance. He has had expected postoperative pain well controlled on oral pain management regimen. He has not had significant phantom pain to this point. Slate Cutter Operator placed rigid protective device with extension to the R BKA stump. He has received dialysis while here, there was some edema noted in his LUE so fistula duplex was obtained while inpatient and will plan for further outpatient evaluation in this regard as needed. He has been medically stable for discharge since 08/31/2024 but had been pending insurance approval to return to [facility]; this ultimately was denied and appeal initiated but [facility] able to accept patient back as appeal is processed. He is discharged back to [facility] today. Plan is for follow-up with Dr. Damico at the wound center next Tuesday and follow-up in the vascular surgery office on 09/21/24. Physical Exam Const alert, oriented x3 and no apparent distress General Appearance: cooperative and comfortable HEENT normocephalic, hearing grossly normal bilaterally, external ears normal and external nose normal Nose: external nose normal Eyes EOMs intact bilaterally General Eye: normal appearance of both eyes Neck General: normal visual inspection and trachea midline Resp normal respiratory effort, normal air movement, no retractions and no use of accessory muscles Effort and Inspection: able to speak in complete sentences Cardio regular rate and regular rhythm Extremity Extremity Narrative: R BKA site with dry dressing intact, no bleed-through. Still with mild edema, soft to palpation, no apparent ecchymosis. Amputation stump soft to palpation throughout. Visible skin viable with no evidence of ischemia. No erythema/excess warmth. Neuro oriented x3, moves all extremities and no focal motor deficits Psych mental status grossly normal Appearance: grossly normal Attitude: calm and engaged Activity / Motor Behavior: appropriate eye contact Speech: normal speech Judgement: judgement good Weight / BMI Weight Weight: 195 lb 12.328 oz Body Mass Index (BMI) 30.7 ABG / Lab / Microbiology Data 09/03/24 05:33 09/02/24 05:44 Laboratory: Laboratory Results - last 24 hr 09/03/24 16:37: POC Glucose 212 H 09/03/24 22:21: POC Glucose 219 H 09/04/24 06:43: POC Glucose 151 H 09/04/24 11:10: POC Glucose 214 H Radiography Diagnostic Testing: Radiology Impression A/V Fistula Ultrasound 08/31/24 12:22 Interpretation Summary 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 Small caliber vessel at distal outflow. Ordering Physician: Salma Cervantes Referring Physician: Nando Wiggins Performed By: Anne-Marie Monzon RVT D/C Instructions Discharge Diet: Carb Control Diet Keep extremity elevated above heart level: Operative Extremity (R BKA ) Call your doctor if your incision/area has: Sudden Increased Bleeding and Foul Smelling Discharge Call your doctor if you observe: Fever of 101 or Higher and Uncontrolled pain Additional Dressing/Incision Instructions: The incision site is closed with hola. For care: Apply Xeroform to the staple line and then cover with dry dressing. Change dressing daily or more often as needed to keep clean and dry. Apply CHRISTIAN wrap for gentle compression to the BKA stump to manage edema; keep elevated on pillows to manage edema. An amputation stump protector was fitted by Slate Cutter Operator; this may be removed as needed for PT/OT and hygiene but otherwise should remain in place. Showers are OK; gently pat the incision site dry. No baths/submerging the site until healed (4-6 weeks). DC O2, CPAP, BIPAP Needs Home O2 Discharge instructions: No Please Follow Up With: Salma Cervantes PA When: 09/21/24 Meaningful Use Info Meaningful Use Meaningful Use Diagnoses (Choose all that apply): None applicable Ischemic Stroke Statin Dosing Therapy Reference: STATIN DOSE THERAPY REFERENCE: * Patients > 75 years receive moderate or high dose statin therapy. * Patients 75 years or YOUNGER should receive HIGH intensity statin dose unless contraindicated. You will be required to document reason for non-treatment if statin daily dose does not meet guidelines. HIGH DOSE STATIN THERAPY DAILY Atorvastatin > than or = to 40 mg Rosuvastatin > than or = to 20 mg Amlodipine + Atorvastatin > than or = to 2.5/40 mg Ezetimibe + Simvastatin 10/80 mg Simvastatin 80mg Discharge Plan Admission Admit Date/Time: 08/29/24 13:06 Attending Provider: Earl White Primary Care Provider: Nando Wiggins Consulting Providers: Randal Damico; Manuel Alva Instructions Additional Instructions / Restrictions: The incision site is closed with hola. For care: Apply Xeroform to the staple line and then cover with dry dressing. Change dressing daily or more often as needed to keep clean and dry. Apply CHRISTIAN wrap for gentle compression to the BKA stump to manage edema; keep elevated on pillows to manage edema. An amputation stump protector was fitted by Slate Cutter Operator; this may be removed as needed for PT/OT and hygiene but otherwise should remain in place. Showers are OK; gently pat the incision site dry. No baths/submerging the site until healed (4-6 weeks). Discharge Orders/Prescriptions Prescriptions: Continued torsemide 100 mg tablet 100 mg PO MOWEFR Patient Comments: on non-dialysis days insulin glargine 100 unit/mL (3 mL) insulin pen 20 unit SC DINNER 30 Days Qty: 0 0RF Rx Instructions: Hold if glucose less than 130 mg/dl clopidogrel 75 mg tablet 75 mg PO QHS Patient Comments: [NO ORIGINAL SIG] cholecalciferol (vitamin D3) 125 mcg (5,000 unit) capsule 125 mcg PO DAILY insulin lispro 100 unit/mL insulin pen 10 unit subcut TID Patient Comments: BEFORE MEALS acetaminophen 325 mg Tablet 650 mg PO Q8H PRN PRN (Reason: Pain 1-10 Or Fever >100.7) albuterol sulfate 2.5 mg /3 mL (0.083 %) Solution For Nebulization 2.5 mg inhalation Q2H PRN PRN (Reason: SOB &/OR WHEEZING) Qty: 0 0RF heparin (porcine) 5,000 unit/mL Solution 5,000 unit subcut Q8 Qty: 0 0RF Sore Throat (benzocaine-menth) 15-3.6 mg Lozenge 2 mariaa mucous membrane Q2H PRN PRN (Reason: sore throat) Qty: 0 0RF menthol-zinc oxide [Calmoseptine] 0.44-20.6 % Ointment 1 applic topical BID Qty: 0 0RF Protocol: *Topical Application Instructions APPLICATION INSTRUCTIONS: apply to buttocks Dustin (with collagen) 7-7-1.5 gram powder in packet 1 packet PO BID Rx Instructions: mix 1 packet with 8-10 oz liquid insulin lispro [Humalog KwikPen Insulin] 100 unit/mL Insulin Pen See Protocol subcut ACHS Protocol: 3. Sliding Scale Insulin Med Dosing Condition: 150-189 mg/dl = 1 unit Condition: 190-229 mg/dl = 2 units Condition: 230-269 mg/dl = 3 units Condition: 270-309 mg/dl = 4 units Condition: 310-349 mg/dl = 5 units Condition: 350-399 mg/dl = 6 units Condition: 400-449 mg/dl = 7 units Condition: Greater than 449 call physician Protocol Text: Suggested for: - Patients on Total Daily Insulin Dose of 37-55 units - Obese, infected, or steroid patients MEDIUM DOSING ALGORITHIM Rx Instructions: 150-189 1 unit,190-229 2 unit, 230-269 3 unit, 270-309 4 unit, 310-349 5 unit, 350-399 6 unit, 400-449 7 unit, 450-500 call physicion Glucerna Liquid 240 ml PO DAILY sennosides-docusate sodium [Stimulant Laxative Plus] 8.6-50 mg Tablet 1 tab-cap PO BID PRN PRN (Reason: Constipation) aspirin [Adult Aspirin Regimen] 81 mg tablet,delayed release (DR/EC) 81 mg PO DAILY oxycodone 5 mg tablet 2.5 mg PO Q4H PRN PRN (Reason: Pain Score 4-10) 30 Days Qty: 60 0RF oxycodone 5 mg tablet 2.5 mg PO DAILY 30 Days Qty: 15 0RF Discontinued HySept 0.25 % Solution 1 applic topical DAILY Protocol: *Topical Application Instructions APPLICATION INSTRUCTIONS: right foot vancomycin 750 mg recon soln 750 mg IV .COMPLEX Rx Instructions: 750 mg intravenously send to [facility] Thurs, Sat; Referrals / Follow Up: Nando Wiggins MD [Primary Care Provider] - Disposition Disposition (needs filled in before D/C Order can be placed): Assisted Facility Charges/Coding Procedures Integumentary [id number]: [id number] Global Visit
--- NOTE | 2024-08-31 08:34 | PCM.TXEXTCAR ---
Diet Diet Order/Speech Therapy: 09/03/24 14:28 Diet: Renal - General Food consistency:: Regular Liquid Consistency:: Regular/Thin Dietary Modifications:: Consistent Carbohydrate Type of Dietary Supplement:: Dustin Diet Comments: orange Dustin with breakfast and dinner DC O2, CPAP, BIPAP needs Home O2 Discharge instructions: No Wound(s) RIGHT BELOW THE KNEE STUMP: Wound Type: Surgical Incision (R BKA incision site is closed with hola. For care: Apply Xeroform to the staple line and then cover with dry dressing. Change dressing daily or more often as needed to keep clean and dry.) Therapies Extremity Affected:: Right Lower Physical Therapy: Eval and Treat Occupational Therapy: Eval and Treat Problem/Diagnosis (1) Amputation of right lower extremity below knee: Status: Acute Code(s): S88.111A - Complete traumatic amputation at level between knee and ankle, right lower leg, initial encounter Plan Wrapped the stump with CHRISTIAN bandaged, reapplied protective device, and elevated his leg on a few pillows. Continue with CHRISTIAN wrap and elevation to manage edema. Protector should be in place most of the time, removed for wound care/hygeine and PT as needed. Prevena vac removed 09/03/24 and incision site satisfactory in appearance. His pain is well-controlled on current regimen. He had dialysis yesterday and tolerated this well. Hgb stable. He is stable for discharge back to [facility] today. I will see him in the vascular office as an outpatient in 3-4 weeks to evaluate and possibly begin staple removal, sooner as needed if any concerns arise. Allergies/Procedures Done in Hospital Allergies pioglitazone (From Actos) Allergy (Verified 08/29/24 09:15) fatigue simvastatin (From Zocor) Allergy (Verified 08/29/24 09:15) myalgia sitagliptin (From Januvia) Allergy (Verified 08/29/24 09:15) unknown Procedures: - (R Below Knee Amputation) Type of Care/Length of Stay Estimated LOS: More Than 30 Days Type of Care Needed: Skilled Rehab Potential: Fair Prognosis: Fair Additional Orders/Day of Discharge Day of Discharge: 09/04/24 Dietary and Speech Recommendations Dietitian Recommendations/Changes: Advance diet as tolerated to CCD/Renal High Protein diet to manage medical conditions. Will order orange Dustin BID with meals to promote wound healing and will discontinue Dustin with medpass Follow Up Care Please Follow Up With: Randal Damico MD When: 1 week Please Follow Up With: Salma Cervantes PA When: 09/21/24 Discharge Plan Admission Admit Date/Time: 08/29/24 13:06 Attending Provider: Earl White Primary Care Provider: Nando Wiggins Consulting Providers: Randal Damico; Manuel Alva Instructions Additional Instructions / Restrictions: The incision site is closed with hola. For care: Apply Xeroform to the staple line and then cover with dry dressing. Change dressing daily or more often as needed to keep clean and dry. Apply CHRISTIAN wrap for gentle compression to the BKA stump to manage edema; keep elevated on pillows to manage edema. An amputation stump protector was fitted by Machine Stripper Cutter; this may be removed as needed for PT/OT and hygiene but otherwise should remain in place. Showers are OK; gently pat the incision site dry. No baths/submerging the site until healed (4-6 weeks). Discharge Orders/Prescriptions Prescriptions: Continued torsemide 100 mg tablet 100 mg PO MOWEFR Patient Comments: on non-dialysis days insulin glargine 100 unit/mL (3 mL) insulin pen 20 unit SC DINNER 30 Days Qty: 0 0RF Rx Instructions: Hold if glucose less than 130 mg/dl clopidogrel 75 mg tablet 75 mg PO QHS Patient Comments: [NO ORIGINAL SIG] cholecalciferol (vitamin D3) 125 mcg (5,000 unit) capsule 125 mcg PO DAILY insulin lispro 100 unit/mL insulin pen 10 unit subcut TID Patient Comments: BEFORE MEALS acetaminophen 325 mg Tablet 650 mg PO Q8H PRN PRN (Reason: Pain 1-10 Or Fever >100.7) albuterol sulfate 2.5 mg /3 mL (0.083 %) Solution For Nebulization 2.5 mg inhalation Q2H PRN PRN (Reason: SOB &/OR WHEEZING) Qty: 0 0RF heparin (porcine) 5,000 unit/mL Solution 5,000 unit subcut Q8 Qty: 0 0RF Sore Throat (benzocaine-menth) 15-3.6 mg Lozenge 2 mariaa mucous membrane Q2H PRN PRN (Reason: sore throat) Qty: 0 0RF menthol-zinc oxide [Calmoseptine] 0.44-20.6 % Ointment 1 applic topical BID Qty: 0 0RF Protocol: *Topical Application Instructions APPLICATION INSTRUCTIONS: apply to buttocks Dustin (with collagen) 7-7-1.5 gram powder in packet 1 packet PO BID Rx Instructions: mix 1 packet with 8-10 oz liquid insulin lispro [Humalog KwikPen Insulin] 100 unit/mL Insulin Pen See Protocol subcut [facility] Protocol: 3. Sliding Scale Insulin Med Dosing Condition: 150-189 mg/dl = 1 unit Condition: 190-229 mg/dl = 2 units Condition: 230-269 mg/dl = 3 units Condition: 270-309 mg/dl = 4 units Condition: 310-349 mg/dl = 5 units Condition: 350-399 mg/dl = 6 units Condition: 400-449 mg/dl = 7 units Condition: Greater than 449 call physician Protocol Text: Suggested for: - Patients on Total Daily Insulin Dose of 37-55 units - Obese, infected, or steroid patients MEDIUM DOSING ALGORITHIM Rx Instructions: 150-189 1 unit,190-229 2 unit, 230-269 3 unit, 270-309 4 unit, 310-349 5 unit, 350-399 6 unit, 400-449 7 unit, 450-500 call physicion Glucerna Liquid 240 ml PO DAILY sennosides-docusate sodium [Stimulant Laxative Plus] 8.6-50 mg Tablet 1 tab-cap PO BID PRN PRN (Reason: Constipation) aspirin [Adult Aspirin Regimen] 81 mg tablet,delayed release (DR/EC) 81 mg PO DAILY oxycodone 5 mg tablet 2.5 mg PO Q4H PRN PRN (Reason: Pain Score 4-10) 30 Days Qty: 60 0RF oxycodone 5 mg tablet 2.5 mg PO DAILY 30 Days Qty: 15 0RF Discontinued HySept 0.25 % Solution 1 applic topical DAILY Protocol: *Topical Application Instructions APPLICATION INSTRUCTIONS: right foot vancomycin 750 mg recon soln 750 mg IV .COMPLEX Rx Instructions: 750 mg intravenously send to [facility] Thurs, Sat; Referrals / Follow Up: Nando Wiggins MD [Primary Care Provider] - Disposition Disposition (needs filled in before D/C Order can be placed): [facility] Charges/Coding Procedures Integumentary [id number]: [id number] Global Visit
[2024-08-31 11:24] LABS: Bedside Glucose 162 mg/dL (74-106)
--- NOTE | 2024-08-31 12:22 | AVDS_ITS ---
Reason For Study Reason For Study: Prolonged bleeding after dialysis LEFT Inflow, 256.8/110.4 cm/sec. Inflow, 121.9 ml/min. Prox anastamosis, 302.9/87.2 cm/sec. Prox anastamosis, 1356 ml/min. Prox graft, 79.4/27.8 cm/sec. Prox graft, 488.4 ml/min. Mid graft, 81.8/25.4 cm/sec. Mid graft, 1349 ml/min. Distal graft, 75.7/24.1 cm/sec. Distal graft, 1092 ml/min. Outflow, 53.5/25.2 cm/sec. Outflow, 463 ml/min. Preliminary report given to Salma MINER. VL/AV Fistula/Dialysis Graft Scan Interpretation Summary 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 Small caliber vessel at distal outflow. Ordering Physician: Salma Cervantes Referring Physician: Nando Wiggins Performed By: Anne-Marie Monzon RVT
--- NOTE | 2024-08-31 14:46 | PN.SURG_ITS ---
Subjective Subjective Doing well. No phantom limb pain. Pain controlled. Objective Data Objective Data Vital Signs: Vital Signs Temp Pulse Resp BP Pulse Ox O2 Del Method O2 Flow Rate 97.5 F L 46 L 18 111/55 L 97 Room Air 2 08/31/24 08:10 08/31/24 08:10 08/31/24 08:10 08/31/24 08:10 08/31/24 08:10 08/31/24 08:15 08/30/24 21:37 Oxygen Flow Rate (L/min) 2 Oxygen Delivery Method Room Air Weight: 198 lb 13.711 oz Body Mass Index (BMI) 0.0 Intake & Output: Intake and Output for Last 24 Hours 08/29/24 08/30/24 08/31/24 23:59 23:59 23:59 Intake Total 1120 / 1120 1140 / 1140 Output Total 2400 / 2400 Balance 1120 / 1120 -1260 / -1260 Lab / Micro Data 08/31/24 08:02 08/30/24 05:47 Labs: Laboratory Results - last 24 hr 08/30/24 16:32: POC Glucose 287 H 08/30/24 20:58: POC Glucose 285 H 08/31/24 06:13: POC Glucose 189 H 08/31/24 08:02: WBC 7.8, RBC 2.85 L, Hgb 7.7 L, Hct 26.1 L, MCV 91.6, MCH 27.0, MCHC 29.5 L, RDW Std Deviation 53.4 H, RDW Coeff of Frances 16.1 H, Plt Count 234, MPV 10.5, Immature Gran % (Auto) 0.500, Neut % (Auto) 68.4, Lymph % (Auto) 14.5 L, [place] % (Auto) 12.9 H, Eos % (Auto) 3.1, Baso % (Auto) 0.6, Absolute Neuts (auto) 5.3, Absolute Lymphs (auto) 1.13, Nucleated RBC % 0 08/31/24 11:05: POC Glucose 162 H Physical Exam Narrative Right lower extremity: Knee immobilizer in place (Charge Out Clerk). No signs of bleeding or compromise of the stump site. Left lower extremity: No swelling in the calf. Discussed with nursing placing an SCD Const alert and oriented x3 Resp normal respiratory effort Cardio Rate: regular rate Assessment & Plan Assessment/Plan (1) Amputation of right lower extremity below knee: PLAN: Doing well postop day 2 Expected course Dispo plan for patient per vascular surgery team Follow-up with me at the wound care center on Tuesday, 03 September 2024. Incisional VAC should stay until then. Charges/Coding Procedures Integumentary [id number]: [id number] Global Visit
--- NOTE | 2024-08-31 15:54 | PN.RENAL_ITS ---
Subjective Subjective no new complaints Objective Data Objective Data Vital Signs: Vital Signs Temp Pulse Resp BP Pulse Ox O2 Del Method O2 Flow Rate 97.9 F 87 18 108/41 L 96 Room Air 2 08/31/24 14:05 08/31/24 14:05 08/31/24 14:05 08/31/24 14:05 08/31/24 14:05 08/31/24 14:05 08/30/24 21:37 Oxygen Flow Rate (L/min) 2 Oxygen Delivery Method Room Air Weight: 90.2 kg Body Mass Index (BMI) 0.0 Intake & Output: Intake and Output for Last 24 Hours 08/29/24 08/30/24 08/31/24 23:59 23:59 23:59 Intake Total 1120 / 1120 1140 / 1140 Output Total 2400 / 2400 Balance 1120 / 1120 -1260 / -1260 Lab / Micro Data 08/31/24 08:02 08/30/24 05:47 Labs: Laboratory Results - last 24 hr 08/30/24 16:32: POC Glucose 287 H 08/30/24 20:58: POC Glucose 285 H 08/31/24 06:13: POC Glucose 189 H 08/31/24 08:02: WBC 7.8, RBC 2.85 L, Hgb 7.7 L, Hct 26.1 L, MCV 91.6, MCH 27.0, MCHC 29.5 L, RDW Std Deviation 53.4 H, RDW Coeff of Frances 16.1 H, Plt Count 234, MPV 10.5, Immature Gran % (Auto) 0.500, Neut % (Auto) 68.4, Lymph % (Auto) 14.5 L, [place] % (Auto) 12.9 H, Eos % (Auto) 3.1, Baso % (Auto) 0.6, Absolute Neuts (auto) 5.3, Absolute Lymphs (auto) 1.13, Nucleated RBC % 0 08/31/24 11:05: POC Glucose 162 H Physical Exam Narrative Alert and oriented x 3, no apparent distress S1, S2, RRR Lungs sound clear Abdomen soft Brace to right knee/leg. Edema to left lower leg Left forearm AV fistula accessed for hemodialysis Assessment & Plan Assessment/Plan (1) End stage renal disease: (2) Anemia of chronic disease: PLAN: Plan Patient has history of ESRD and is on hemodialysis Tuesday at [facility], patient last dialyzed Tuesday. Patient is compliant with dialysis. We will plan for dialysis today over 4 hours on 2K bath attempting fluid removal as patient/blood pressure tolerates. Outpatient EDW was 91 kg. Likely EDW will be lowered by time of hospital discharge. Patient has history of anemia of chronic disease. Will monitor hemoglobin trends. Patient will receive CRYSTAL with dialysis today. Assessment and plan reviewed with Dr. Alva. 08/31/24. HD tomorrow if still here. noted borderline K.
[2024-08-31 16:43] LABS: Bedside Glucose 207 mg/dL (74-106)
--- NOTE | 2024-08-31 17:30 | CASEMGMT ---
CM Director: This Director met with pt face to face this afternoon at 1400 to discuss previous shared concerned regarding transportation. Pt states he has been fine with his late transports and is without concern. Pt's ARNOL Khanna was not available in the room at the time. This Director returned to pt's room at 1700, ARNOL Khanna was present and was agreeable to discussing his concerns. Concerns shared regarding previous late transportations delayed from original pickup time. Reassurance provided to ARNOL Khanna that this issue is being addressed with the ambulance company and an apology was offered for his previous experience. ARNOL Khanna expressed a secondary concern regarding ambulance billing but states he can take care of those concerns independently. ARNOL Khanna denied any further concerns at this time. Fidelia Marie RN [facility]
--- NOTE | 2024-08-31 18:02 | CASEMGMT ---
Social Work Precert has not been obtained for readmission to [facility]. Pt son in law and physician notified that precert has not be obtained. Green sheet on the chart to facilitate a weekend discharge in the event [facility] calls the unit with precert. Plan: [facility], pending precert TERRI Zapata
[2024-08-31] MEDS: Menthol/Lanolin/Calamine/Znox 113 GM Tube 1 APPLIC TOPICAL (21:33)
[2024-08-31] MEDS: Clopidogrel Bisulfate 75 MG Tablet PO (21:38)
[2024-08-31] MEDS: MELATONIN 3 MG TABLET PO (21:51)
[2024-08-31 22:48] LABS: Bedside Glucose 169 mg/dL (74-106)
[2024-09-01] VITALS (17 sets, daily range): BP systolic 103–247; BP diastolic 34–82; PULSE 40–56; RESP 14–20; TEMP 36.2–36.8; O2SAT 93–99; BMI 31.1; BMI 30.7
[2024-09-01] MEDS: oxyCODONE 5 MG Tablet PO ×2 (03:02→20:39)
[2024-09-01 06:34] LABS: Bedside Glucose 216 mg/dL (74-106)
[2024-09-01] MEDS: Heparin Injection (Vial) 5,000 UNIT/ML VIAL 5000 UNIT SC ×3 (07:00→22:01)
[2024-09-01] MEDS: Acetaminophen 500 MG Tablet 1000 MG PO ×3 (07:00→22:01)
[2024-09-01] MEDS: Insulin Lispro 100 UNIT/ML INSULN.PEN SC ×3 (07:01→21:55)
[2024-09-01 08:20] LABS: Vancomycin, Random Level 14.1 ug/mL (0.0-15.0)
[2024-09-01] MEDS: PureFlow B 2K Dialysis Soln 1 BAG 6 BAG PF (09:17)
[2024-09-01] MEDS: 0.9% Normal Saline 1,000 ML IV.SOLN. 1000 ML OPERA.SITE (09:17)
--- NOTE | 2024-09-01 10:50 | PCM.RX.CS ---
Consult Antibiotic Management Pharmacy has been consulted to manage selected antibiotic: Vancomycin Type of Intervention Type of Consult: Follow-up Labs Labs: Sodium 134 mmol/L (133-145) 08/30/24 05:47 Potassium 5.2 mmol/L (3.3-5.1) H 08/30/24 05:47 Chloride 92 mmol/L (98-108) L 08/30/24 05:47 Carbon Dioxide 27.5 mmol/L (21.0-32.0) 08/30/24 05:47 Anion Gap 14 (5-15) 08/30/24 05:47 BUN 60 mg/dL (4-19) H 08/30/24 05:47 Creatinine 5.42 mg/dL (0.70-1.20) H 08/30/24 05:47 Est GFR (MDRD) Non-Af 10 (>60) L 08/30/24 05:47 BUN/Creatinine Ratio 11.0 RATIO (10-20) 08/30/24 05:47 Glucose 196 mg/dL (70-99) H 08/30/24 05:47 Random Vancomycin 14.1 ug/mL (0.0-15.0) 09/01/24 05:55 Pharmacy Plan for Drug Dosing Pharmacy Plan for Drug Dosing: VANCOMYCIN LEVEL RECEIVED Current Vancomycin Dose: Dose per Pre-HD levels Number of Doses Received: Several (continued from home) Vancomycin Level: 14.1 Hours Since Last Dose: n/a Renal Function: on HD- gets HD // Renal Function Trend: HD Lab/Micro: no new data- continuation from home Vancomycin Plan/Comments: Patient had a pre-HD level drawn which resulted in a value of 14.1. Will give a x1 dose of vancomycin 750mg post HD treatment today Pending Level: *RANDOM* pre-HD level 09/04/24 with AM labs Pharmacy Service will continue to monitor and adjust dosing as required.
--- NOTE | 2024-09-01 11:26 | CASEMGMT ---
Social Work Pt's son in law had asked material handler 2nd shift RN for an update. SW checked [employer], there are no updates from [place] regarding precert. SW called son in law Jey, let him know that we do not have precert. SAURAV explained should we get precert pt would be d/c on the weekend, however this does not happen very often. Jey states understanding. Green sheet is on the chart in the event precert is attained on the weekend. KIM Carrion
[2024-09-01] MEDS: Cholecalciferol (Vit D3) 125 MCG CAPSULE (5,000 UNITS) PO (12:17)
[2024-09-01] MEDS: Aspirin E.C. 81 MG Tablet PO (12:24)
[2024-09-01] MEDS: Menthol/Lanolin/Calamine/Znox 113 GM Tube 1 APPLIC TOPICAL ×2 (12:24→21:55)
[2024-09-01 12:26] LABS: Bedside Glucose 103 mg/dL (74-106)
--- NOTE | 2024-09-01 13:04 | PN.SURG_ITS ---
Subjective Subjective I saw patient this afternoon, he was eating lunch. He voiced pain at the incision site and some phantom pain, worse with movement. He had no other complaints. He had dialysis this morning, was bradycardic during dialysis but this has improved since dialysis was completed. He was asymptomatic with the bradycardia; he was also bradycardic with dialysis to a lesser degree. He otherwise tolerated dialysis well. Precert is still pending for return to [facility]. Objective Data Objective Data Vital Signs: Vital Signs Temp Pulse Resp BP Pulse Ox O2 Del Method O2 Flow Rate 97.8 F 56 L 18 110/42 L 95 Room Air 2 09/01/24 12:02 09/01/24 12:02 09/01/24 12:02 09/01/24 12:02 09/01/24 12:02 09/01/24 12:04 08/30/24 21:37 Oxygen Flow Rate (L/min) 2 Oxygen Delivery Method Room Air Weight: 195 lb 12.328 oz Body Mass Index (BMI) 30.7 Intake & Output: Intake and Output for Last 24 Hours 08/30/24 08/31/24 09/01/24 23:59 23:59 23:59 Intake Total 1140 / 1140 50 / 50 Output Total 2400 / 2400 1360 / 1360 Balance -1260 / -1260 -1310 / -1310 Lab / Micro Data 08/31/24 08:02 08/30/24 05:47 Labs: Laboratory Results - last 24 hr 08/28/24 06:40: Crossmatch See Detail 08/31/24 16:14: POC Glucose 207 H 08/31/24 21:30: POC Glucose 169 H 09/01/24 05:55: Random Vancomycin 14.1 09/01/24 06:09: POC Glucose 216 H 09/01/24 11:50: POC Glucose 103 Physical Exam Const alert, oriented x3 and no apparent distress General Appearance: cooperative and comfortable HEENT normocephalic, hearing grossly normal bilaterally, external ears normal and external nose normal Nose: external nose normal Eyes EOMs intact bilaterally General Eye: normal appearance of both eyes Neck General: normal visual inspection and trachea midline Resp normal respiratory effort, normal air movement, no retractions and no use of accessory muscles Effort and Inspection: able to speak in complete sentences Cardio regular rate and regular rhythm Extremity Extremity Narrative: R BKA site with Prevena dressing intact, maintaining seal. No drainage in the cannister. Generalized moderate edema, soft to palpation, no apparent ecchymosis. Amputation stump soft to palpation throughout. Visible skin viable with no evidence of ischemia. No erythema/excess warmth. Neuro oriented x3, moves all extremities and no focal motor deficits Psych mental status grossly normal Appearance: grossly normal Attitude: calm and engaged Activity / Motor Behavior: appropriate eye contact Speech: normal speech Judgement: judgement good Assessment & Plan Assessment/Plan (1) Amputation of right lower extremity below knee: PLAN: Plan Amputation site satisfactory in appearance; Prevena in place, maintaining seal, no drainage. Continue with CHRISTIAN wrap and elevation to manage edema. Protector should be in place most of the time, removed for wound care/hygeine and PT as needed. Prevena vac dressing will remain in place until 09/03. HR back to his usual baseline following dialysis. Vancomycin had been initiated during last hospital admission in early July with plan for 6 week course which he has completed. He has also had definitive amputation for infection source clearance. WBC stable 7.8. Will discontinue at this time. Discharge is pending precert for return to [facility]; at this point unlikely to receive this weekend so likely d/c Tuesday.
[2024-09-01] MEDS: 0.9% Saline Lock 10 ML Syringe IV (13:28)
[2024-09-01 16:52] LABS: Bedside Glucose 230 mg/dL (74-106)
[2024-09-01] MEDS: Clopidogrel Bisulfate 75 MG Tablet PO (22:01)
[2024-09-01 22:13] LABS: Bedside Glucose 183 mg/dL (74-106)
[2024-09-02] VITALS (8 sets, daily range): BP systolic 100–131; BP diastolic 47–60; PULSE 54–65; RESP 16–18; TEMP 36.2–36.6; O2SAT 92–98
[2024-09-02] MEDS: Acetaminophen 500 MG Tablet 1000 MG PO ×3 (05:50→21:34)
[2024-09-02] MEDS: Heparin Injection (Vial) 5,000 UNIT/ML VIAL 5000 UNIT SC ×3 (05:50→21:35)
[2024-09-02 06:06] LABS: Absolute Lymphocyte Count 1.42 X10^3/uL (0.83-4.51); Absolute Neutrophil Count 4.8 X10^3/uL (2.0-7.7); Basophil# 0.03 X10^3/uL; Basophil% 0.4 % (0-1); Eosinophil# 0.23 X10^3/uL; Eosinophils% 3.2 % (0-5); Hematocrit 25.8 % (40-54); Hemoglobin 7.8 g/dL (13.0-16.5); Lymphocyte # 1.42 X10^3/ul (0.83-4.51); Lymphocyte % 19.9 % (19-41); Mean Corp Hgb Conc 30.2 g/dL (32-36); Mean Corpuscular Hgb 27.2 pg (27.0-32.0); Mean Corpuscular Volume 89.9 fL (80-94); Mean Platelet Vol. 10.6 fl (6.2-12.0); Monocyte# 0.65 X10^3/uL; Monocyte% 9.1 % (0-10); NRBC Flagged by Analyzer 0 % (0-5); Neutrophil # 4.79 X10^3/uL (2.7-7.7); Platelet Count 284 K/mm3 (150-450); RBC Distribution Width SD 52.3 fl (35.1-43.9); Red Blood Count 2.87 M/mm3 (4.6-6.2); White Blood Count 7.2 K/mm3 (4.4-11.0)
[2024-09-02] MEDS: Insulin Lispro 100 UNIT/ML INSULN.PEN SC ×4 (06:40→21:33)
[2024-09-02 06:56] LABS: Anion Gap 12 (5-15); BUN 57 mg/dL (4-19); BUN/Creat Ratio 13.7 RATIO (10-20); Calcium,Total 8.7 mg/dL (7.6-11.0); Carbon Dioxide 23.2 mmol/L (21.0-32.0); Chloride 96 mmol/L (98-108); Creatinine, Serum 4.19 mg/dL (0.70-1.20); EST Glomerular Filtration Rate 13 (>60); Estimated Creatinine Clearance 13.21 ml/min (50-250); Glucose 186 mg/dL (70-99); Potassium 4.8 mmol/L (3.3-5.1); Sodium Level 131 mmol/L (133-145)
[2024-09-02 07:00] LABS: Bedside Glucose 177 mg/dL (74-106)
[2024-09-02] MEDS: Menthol/Lanolin/Calamine/Znox 113 GM Tube 1 APPLIC TOPICAL ×2 (09:30→21:36)
[2024-09-02] MEDS: Cholecalciferol (Vit D3) 125 MCG CAPSULE (5,000 UNITS) PO (09:30)
[2024-09-02] MEDS: Aspirin E.C. 81 MG Tablet PO (09:30)
--- NOTE | 2024-09-02 12:21 | PN.SURG_ITS ---
Subjective Subjective I saw Mr. Thompson sitting up at the bedside chair eating lunch. He reports pain at the amputation site, but reports tolerable with current pain management regimen. He voiced no other complaints/concerns. His HR has remained to his usual baseline following bradycardic episode with dialysis yesterday. Hgb is stable. WBC stable. Objective Data Objective Data Vital Signs: Vital Signs Temp Pulse Resp BP Pulse Ox O2 Del Method O2 Flow Rate 98 F 60 18 100/60 98 Room Air 2 09/02/24 09:30 09/02/24 09:33 09/02/24 09:33 09/02/24 09:30 09/02/24 09:33 09/02/24 09:33 08/30/24 21:37 Oxygen Flow Rate (L/min) 2 Oxygen Delivery Method Room Air Weight: 195 lb 12.328 oz Body Mass Index (BMI) 30.7 Intake & Output: Intake and Output for Last 24 Hours 08/31/24 09/01/24 09/02/24 23:59 23:59 23:59 Intake Total 50 / 50 900 / 900 Output Total 2610 / 2610 0 / 0 Balance -2560 / -2560 900 / 900 Lab / Micro Data 09/02/24 05:44 09/02/24 05:44 Labs: Laboratory Results - last 24 hr 09/01/24 11:50: POC Glucose 103 09/01/24 16:33: POC Glucose 230 H 09/01/24 21:52: POC Glucose 183 H 09/02/24 05:44: WBC 7.2, RBC 2.87 L, Hgb 7.8 L, Hct 25.8 L, MCV 89.9, MCH 27.2, MCHC 30.2 L, RDW Std Deviation 52.3 H, RDW Coeff of Frances 16.0 H, Plt Count 284, MPV 10.6, Immature Gran % (Auto) 0.400, Neut % (Auto) 67.0, Lymph % (Auto) 19.9, [place] % (Auto) 9.1, Eos % (Auto) 3.2, Baso % (Auto) 0.4, Absolute Neuts (auto) 4.8, Absolute Lymphs (auto) 1.42, Nucleated RBC % 0, Sodium 131 L, Potassium 4.8, Chloride 96 L, Carbon Dioxide 23.2, Anion Gap 12, BUN 57 H, Creatinine 4.19 H, Estim Creat Clear Calc 13.21 L, Est GFR (MDRD) Non-Af 13 L, BUN/Creatinine Ratio 13.7, Glucose 186 H, Calcium 8.7 09/02/24 06:39: POC Glucose 177 H Physical Exam Const alert, oriented x3 and no apparent distress General Appearance: cooperative and comfortable HEENT normocephalic, hearing grossly normal bilaterally, external ears normal and external nose normal Nose: external nose normal Eyes EOMs intact bilaterally General Eye: normal appearance of both eyes Neck General: normal visual inspection and trachea midline Resp normal respiratory effort, normal air movement, no retractions and no use of accessory muscles Effort and Inspection: able to speak in complete sentences Cardio regular rate and regular rhythm Extremity Extremity Narrative: R BKA site with Prevena dressing intact, maintaining seal. No drainage in the cannister. Generalized moderate edema, improved with elevation, soft to palpation, no apparent ecchymosis. Amputation stump soft to palpation throughout. Visible skin viable with no evidence of ischemia. No erythema/excess warmth. Neuro oriented x3, moves all extremities and no focal motor deficits Psych mental status grossly normal Appearance: grossly normal Attitude: calm and engaged Activity / Motor Behavior: appropriate eye contact Speech: normal speech Judgement: judgement good Assessment & Plan Assessment/Plan (1) Amputation of right lower extremity below knee: PLAN: Plan Amputation site satisfactory in appearance; Prevena in place, maintaining seal, no drainage. Continue with CHRISTIAN wrap and elevation to manage edema. Protector should be in place most of the time, removed for wound care/hygeine and PT as needed. Prevena vac dressing will remain in place until 09/03. Discharge is pending precert for return to [facility]; hopefully discharge tomorrow. Charges/Coding Procedures Integumentary [id number]: [id number] Global Visit
[2024-09-02 12:57] LABS: Bedside Glucose 219 mg/dL (74-106)
[2024-09-02 17:28] LABS: Bedside Glucose 183 mg/dL (74-106)
[2024-09-02] MEDS: Clopidogrel Bisulfate 75 MG Tablet PO (21:35)
[2024-09-02 22:01] LABS: Bedside Glucose 212 mg/dL (74-106)
[2024-09-03 03:20] VITALS: BP 100/56; PULSE 53; RESP 16; TEMP 36.6; O2SAT 95
[2024-09-03 03:23] VITALS: RESP 16; O2SAT 95
[2024-09-03 06:13] LABS: Absolute Lymphocyte Count 1.48 X10^3/uL (0.83-4.51); Absolute Neutrophil Count 5.2 X10^3/uL (2.0-7.7); Basophil# 0.04 X10^3/uL; Basophil% 0.5 % (0-1); Eosinophil# 0.21 X10^3/uL; Eosinophils% 2.7 % (0-5); Hematocrit 24.8 % (40-54); Hemoglobin 7.4 g/dL (13.0-16.5); Lymphocyte # 1.48 X10^3/ul (0.83-4.51); Lymphocyte % 19.3 % (19-41); Mean Corp Hgb Conc 29.8 g/dL (32-36); Mean Corpuscular Hgb 26.6 pg (27.0-32.0); Mean Corpuscular Volume 89.2 fL (80-94); Mean Platelet Vol. 10.9 fl (6.2-12.0); Monocyte# 0.74 X10^3/uL; Monocyte% 9.7 % (0-10); NRBC Flagged by Analyzer 0 % (0-5); Neutrophil # 5.15 X10^3/uL (2.7-7.7); Neutrophil % 67.3 % (47-70); Platelet Count 305 K/mm3 (150-450); RBC Distribution Width CV 16.3 % (11.6-14.6); RBC Distribution Width SD 53.4 fl (35.1-43.9); Red Blood Count 2.78 M/mm3 (4.6-6.2); White Blood Count 7.7 K/mm3 (4.4-11.0)
--- NOTE | 2024-09-03 06:21 | PCM.PN.SRG ---
Subjective Subjective Doing well. No phantom limb pain. Pain controlled. Objective Data Objective Data Vital Signs: Vital Signs Temp Pulse Resp BP Pulse Ox O2 Del Method O2 Flow Rate 97.9 F 53 L 16 100/56 L 95 Room Air 2 09/03/24 03:20 09/03/24 03:20 09/03/24 03:23 09/03/24 03:20 09/03/24 03:23 09/03/24 03:23 08/30/24 21:37 Oxygen Flow Rate (L/min) 2 Oxygen Delivery Method Room Air Weight: 195 lb 12.328 oz Body Mass Index (BMI) 30.7 Intake & Output: Intake and Output for Last 24 Hours 09/01/24 09/02/24 09/03/24 23:59 23:59 23:59 Intake Total 50 / 50 1300 / 1600 500 / 500 Output Total 2610 / 2610 0 / 0 Balance -2560 / -2560 1300 / 1600 500 / 500 Lab / Micro Data 09/03/24 05:33 09/02/24 05:44 Labs: Laboratory Results - last 24 hr 09/02/24 05:44: Sodium 131 L, Potassium 4.8, Chloride 96 L, Carbon Dioxide 23.2, Anion Gap 12, BUN 57 H, Creatinine 4.19 H, Estim Creat Clear Calc 13.21 L, Est GFR (MDRD) Non-Af 13 L, BUN/Creatinine Ratio 13.7, Glucose 186 H, Calcium 8.7 09/02/24 06:39: POC Glucose 177 H 09/02/24 12:32: POC Glucose 219 H 09/02/24 17:04: POC Glucose 183 H 09/02/24 21:31: POC Glucose 212 H 09/03/24 05:33: WBC 7.7, RBC 2.78 L, Hgb 7.4 L, Hct 24.8 L, MCV 89.2, MCH 26.6 L, MCHC 29.8 L, RDW Std Deviation 53.4 H, RDW Coeff of Frances 16.3 H, Plt Count 305, MPV 10.9, Immature Gran % (Auto) 0.500, Neut % (Auto) 67.3, Lymph % (Auto) 19.3, [place] % (Auto) 9.7, Eos % (Auto) 2.7, Baso % (Auto) 0.5, Absolute Neuts (auto) 5.2, Absolute Lymphs (auto) 1.48, Nucleated RBC % 0 Physical Exam Narrative Right lower extremity: Knee immobilizer in place (Maintenance Clerk). No signs of bleeding or compromise of the stump site. VAC removed and suture line C/D/I with hola in place. Left lower extremity: No swelling in the calf. Discussed with nursing placing an SCD Const alert and oriented x3 Resp normal respiratory effort Cardio Rate: regular rate Assessment & Plan Assessment/Plan (1) Amputation of right lower extremity below knee: PLAN: Doing well postop day 5 Expected course Xeroform, ABD, CHRISTIAN/agriculture specialist to the stump. XF to be changed daily. Dispo plan for patient per vascular surgery team Charges/Coding Procedures Integumentary [id number]: [id number] Global Visit
[2024-09-03] MEDS: oxyCODONE 5 MG Tablet PO ×3 (06:53→17:14)
[2024-09-03] MEDS: Heparin Injection (Vial) 5,000 UNIT/ML VIAL 5000 UNIT SC ×3 (06:54→22:10)
[2024-09-03] MEDS: Acetaminophen 500 MG Tablet 1000 MG PO ×3 (06:55→22:11)
[2024-09-03] MEDS: Insulin Lispro 100 UNIT/ML INSULN.PEN SC ×4 (06:57→22:24)
[2024-09-03 07:19] LABS: Bedside Glucose 175 mg/dL (74-106)
[2024-09-03 08:17] VITALS: BP 122/51; PULSE 54; RESP 16; TEMP 36.4; O2SAT 98
[2024-09-03] MEDS: Torsemide 100 MG Tablet PO (08:24)
[2024-09-03] MEDS: Aspirin E.C. 81 MG Tablet PO (08:24)
[2024-09-03] MEDS: Cholecalciferol (Vit D3) 125 MCG CAPSULE (5,000 UNITS) PO (08:24)
[2024-09-03] MEDS: Menthol/Lanolin/Calamine/Znox 113 GM Tube 1 APPLIC TOPICAL ×2 (08:25→22:09)
--- NOTE | 2024-09-03 09:23 | CASEMGMT ---
Social Work- SAURAV received a call from [place] at [facility] re: pt appointment today and a call from pt son-in-law. SAURAV provided education on pt status. The wound center will plan to resume pt weekly appointments next Tuesday. TERRI Keating
--- NOTE | 2024-09-03 11:00 | CASEMGMT ---
[facility] has not obtained auth to admit but sent a note stating that pt can return while they are waiting on it. SW updated. Alanna Gaston DC Planning Asst.
--- NOTE | 2024-09-03 11:12 | CASEMGMT ---
Addendum entered by Jacqui Arora 09/03/24 16:10: SAURAV spoke with Dr White who reports that he will complete the appeal for pt tomorrow. SAURAV updated son-in-law Jey on pt status with dialysis and physician appeal. SAURAV updated DCA that pt will not d/c today. TERRI Keating Addendum entered by Jacqui Arora 09/03/24 15:20: SAURAV received fax with peer to peer information and reached out to Dr White. Dr White reports that he is in surgery all day and cannot complete goac-kg-imef today. SAURAV provided education on 14:00 deadline and [place]/private pay vs skilled/coverage by insurance. reiterated that he cannot complete htsd-tf-vyni today, but that Modesta MINER would be the one to speak with regarding vtfr-vr-psnw. SAURAV called [facility] to advise that qduz-cu-cfni could not be completed today d/t scheduling. Tyler at [facility] reports that she will speak with her supervisor sample preparation to see if an exception can be made. Tyler called SAURAV back and reports that as long as the veyu-bm-zdsn is scheduled by 14:[address] can complete bdob-av-pzao tomorrow. SAURAV called Sridevi at vascular office who reports that Modesta is off today, but offered to reach out to Modesta for an open time tomorrow in which to schedule the peer to peer. [facility] the [facility] to peer for tomorrow. SAURAV spoke with Tk who reports that cannot be scheduled, as the meeting needs to be completed today. SAURAV shared previous conversation with Tyler. Tk spoke with her lodging facilities manager who upheld the need for yamg-fu-vvxl to be completed today by 2. Tk reports that a formal denial will be issued and the physician can appeal tomorrow. SAURAV updated Sridevi at vascular office. SAURAV updated pt son-in-law, who requests that an appeal be completed. Pt son-in-law reports that he would like SW to check with dialysis to insure that pt will receive a full dialysis treatment tomorrow. SAURAV called Dialysis coordinator to confirm. SAURAV updated hospice case manager. DCA updated. SAURAV remains available to follow. TERRI Keating Original Note: Social Work- SAURAV received a voicemail from Renae at [facility] regarding pt denial and offer of peer to peer. Renae requested a fax number to send the information to. SAURAV returned call and left a voicemail with fax number. SAURAV reached out to care management director for update, as well as updated DCA. SAURAV remains available to follow. TERRI Keating
[2024-09-03 11:24] LABS: Bedside Glucose 172 mg/dL (74-106)
[2024-09-03 14:00] VITALS: BP 111/48; PULSE 54; RESP 16; TEMP 36.3; O2SAT 97
[2024-09-03 16:55] LABS: Bedside Glucose 212 mg/dL (74-106)
--- NOTE | 2024-09-03 17:45 | PCM.PN.SRG ---
Subjective Subjective Resting comfortably. No overnight issues awaiting insurance for dispo. Objective Data Objective Data Sleeping comfortably, NAD RRR Resp non labored RLE dressing C/D/I Vital Signs: Vital Signs Temp Pulse Resp BP Pulse Ox O2 Del Method O2 Flow Rate 97.4 F L 54 L 16 111/48 L 97 Room Air 2 09/03/24 14:00 09/03/24 14:00 09/03/24 14:00 09/03/24 14:00 09/03/24 14:00 09/03/24 14:00 08/30/24 21:37 Oxygen Flow Rate (L/min) 2 Oxygen Delivery Method Room Air Weight: 195 lb 12.328 oz Body Mass Index (BMI) 30.7 Intake & Output: Intake and Output for Last 24 Hours 09/01/24 09/02/24 09/03/24 23:59 23:59 23:59 Intake Total 50 / 50 1300 / 1600 500 / 500 Output Total 2610 / 2610 0 / 0 Balance -2560 / -2560 1300 / 1600 500 / 500 Lab / Micro Data 09/03/24 05:33 09/02/24 05:44 Labs: Laboratory Results - last 24 hr 09/02/24 21:31: POC Glucose 212 H 09/03/24 05:33: WBC 7.7, RBC 2.78 L, Hgb 7.4 L, Hct 24.8 L, MCV 89.2, MCH 26.6 L, MCHC 29.8 L, RDW Std Deviation 53.4 H, RDW Coeff of Frances 16.3 H, Plt Count 305, MPV 10.9, Immature Gran % (Auto) 0.500, Neut % (Auto) 67.3, Lymph % (Auto) 19.3, Stevens % (Auto) 9.7, Eos % (Auto) 2.7, Baso % (Auto) 0.5, Absolute Neuts (auto) 5.2, Absolute Lymphs (auto) 1.48, Nucleated RBC % 0 09/03/24 06:56: POC Glucose 175 H 09/03/24 11:02: POC Glucose 172 H 09/03/24 16:37: POC Glucose 212 H Radiography Diagnostic Testing: Radiology Impression A/V Fistula Ultrasound 08/31/24 12:22 Interpretation Summary 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 Small caliber vessel at distal outflow. Ordering Physician: Salma Cervantes Referring Physician: Nando Wiggins Performed By: Anne-Marie Monzon RVT Assessment & Plan Assessment/Plan (1) Amputation of right lower extremity below knee: QUALIFIERS: Encounter type: subsequent encounter Qualified Code(s): S88.111D - Complete traumatic amputation at level between knee and ankle, right lower leg, subsequent encounter PLAN: -insurance denied authorization; they would not elaborate to the protective services social worker -will contact tomorrow to ascertain reasoning
[2024-09-03] MEDS: Clopidogrel Bisulfate 75 MG Tablet PO (22:11)
[2024-09-03 22:45] VITALS: BP 113/58; PULSE 52; RESP 16; TEMP 36.4; O2SAT 97
[2024-09-03 23:01] LABS: Bedside Glucose 219 mg/dL (74-106)
[2024-09-04] VITALS (11 sets, daily range): BP systolic 99–191; BP diastolic 42–64; PULSE 43–77; RESP 12–16; TEMP 36.1–36.7; O2SAT 94–98; BMI 31.2; BMI 30.7; BMI 29.9
[2024-09-04] MEDS: Insulin Lispro 100 UNIT/ML INSULN.PEN SC ×2 (06:44→12:37)
[2024-09-04] MEDS: Acetaminophen 500 MG Tablet 1000 MG PO ×2 (06:44→14:17)
[2024-09-04] MEDS: Heparin Injection (Vial) 5,000 UNIT/ML VIAL 5000 UNIT SC ×2 (06:44→14:17)
[2024-09-04 07:10] LABS: Bedside Glucose 151 mg/dL (74-106)
[2024-09-04] MEDS: Aspirin E.C. 81 MG Tablet PO (07:38)
[2024-09-04] MEDS: Cholecalciferol (Vit D3) 125 MCG CAPSULE (5,000 UNITS) PO (07:38)
[2024-09-04] MEDS: 0.9% Normal Saline 1,000 ML IV.SOLN. 1000 ML OPERA.SITE (09:16)
[2024-09-04] MEDS: PureFlow B 2K Dialysis Soln 1 BAG 6 BAG PF (09:17)
--- NOTE | 2024-09-04 10:58 | CASEMGMT ---
Addendum entered by Jacqui Arora 09/04/24 13:27: SW called [employer] and spoke with Tena to confirm that discharging pt to [facility] would not invalidate or impact appeal process. Tena reports that it would not impact the appeal process, but cautioned that if denied, pt would be responsible for cost incurred. SW relayed this information to pt son-in-law Jey. SW faxed medical documentation to [facility] after having pt sign appointment of licensing representative form. SW remains available to follow. TERRI Keating Original Note: Social Work- SW initiated calls to Human regarding pt appeal due to denial of SNF. SW initiated calls at 8:22 and concluded at 10:08. SW spoke with Tiera who reports that SW needs to call the appeal line at [phone] option 3 for expedited appeal. SW then called that number and spoke with Melodie who took pt information, but reported that SW needed to transfer back to the tuhq-nz-rmvo line ([phone] option 1). SW called the gpys-nt-rfch line and spoke with Norah who reports that she cannot assist SW and is uncertain as to why SW was told to call that line. Norah suggested SW call the appeal line again, as she sees the denial has already been issued and she cannot provide any assistance. SW called the appeal line and spoke with Dia who reports that she does not handle group policies and transferred SW to someone who does handle group policies. Alejandra Lawler provided a number of [phone] in which to speak to someone regarding group policy appeals. This number is not a working number, as it just rang. SAURAV was also provided with a fax number of [phone] to fax medical records to. SW spoke with Daphney at the appeal line after being unable to utilize the number provided by Dia. Daphney reports that she does not do [place] policies and that was the incorrect number provided by Dia. Daphney sugested I call the main appeal line again. SAURAV called the appeal line and spoke with Bernarda, who reports that she is not the correct person either, but offered to provide assistance. Bernarda attempted to do a warm handoff to the extension listed in her employee list as a provider appeal line, however, the individual she spoke with at that line reported that it was not the correct line. Bernarda reported that she spoke with her seafood team member that confirmed it as the correct line and Bernarda again attempted to provide a warm handoff, but was again refused. Bernarda offered to transfer SAURAV to the appeal line. SAURAV then spoke with a gentleman, name unknown, who was able to assist SAURAV and start the appeal. This gentleman directed SAURVA to the appointment of licensing representative form. Gentleman reported that he started the appeal, but it would not be officially started until medical records are received. . SAURAV completed form and called son-in-law, Jey to request signature. SAURAV will then fax medical records. SAURAV provided education on appeal process and timeline. SAURAV shared that [facility] has 72 hours to complete determination. SAURAV spoke with Jey regarding potential for discharge while awaiting determination. 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 Jey reports that if pt has had dialysis, he would like pt to return to [facility] during 72 hr appeal process and is understanding that if appeal does not overturn denial, that pt would be private pay from the date of admission to SNF. SAURAV collaborated with Vascular PA regarding discharge request. PA agreeable to pt d/c. SAURAV notified DCA to verify that [facility] would accept pt to facility while determination is being completed. DCA verified that [facility] would accept pt back while appeal is pending. SAURAV updated SAURAV supervisor travel trailer on status of pt case. SAURAV remains available to follow. TERRI Keating
--- NOTE | 2024-09-04 11:00 | PCM.PN.REN ---
Subjective Subjective Seen during dialysis, tolerating treatment well. No complaints. Objective Data Objective Data Vital Signs: Vital Signs Temp Pulse Resp BP Pulse Ox O2 Del Method O2 Flow Rate 97 F L 43 L 12 105/49 L 94 Room Air 2 09/04/24 08:15 09/04/24 10:31 09/04/24 08:15 09/04/24 10:31 09/04/24 10:04 09/04/24 10:04 08/30/24 21:37 Oxygen Flow Rate (L/min) 2 Oxygen Delivery Method Room Air Weight: 88.8 kg Body Mass Index (BMI) 30.7 Intake & Output: Intake and Output for Last 24 Hours 09/02/24 09/03/24 09/04/24 23:59 23:59 23:59 Intake Total 1300 / 1600 500 / 500 Output Total 0 / 0 Balance 1300 / 1600 500 / 500 Lab / Micro Data 09/03/24 05:33 09/02/24 05:44 Labs: Laboratory Results - last 24 hr 09/03/24 11:02: POC Glucose 172 H 09/03/24 16:37: POC Glucose 212 H 09/03/24 22:21: POC Glucose 219 H 09/04/24 06:43: POC Glucose 151 H Radiography Diagnostic Testing: Radiology Impression A/V Fistula Ultrasound 08/31/24 12:22 Interpretation Summary 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 Small caliber vessel at distal outflow. Ordering Physician: Salma Cervantes Referring Physician: Nando Wiggins Performed By: Anne-Marie Monzon RVT Physical Exam Narrative Alert and oriented x 3, no apparent distress S1, S2, RRR Lungs sound clear Abdomen soft Brace to right knee/leg. Edema to left lower leg Left forearm AV fistula accessed for hemodialysis Assessment & Plan Assessment/Plan (1) End stage renal disease: (2) Anemia of chronic disease: PLAN: Plan ESRD on hemodialysis Tuesday. Patient undergoing hemodialysis today over 4 hours, 2K bath and attempting fluid removal as patient/blood pressure tolerates. Discharge plans in progress. Assessment and plan reviewed with Dr. Alva.
[2024-09-04] MEDS: Epoetin Alfa epbx 10,000 UNIT/ML 20000 UNIT IV (11:15)
--- NOTE | 2024-09-04 11:16 | PCM.PN.SRG ---
Subjective Subjective I saw Mr. Thompson during dialysis this morning. He is tolerating well so far. He reports tolerable pain at the amputation site. There has been difficulty with insurance auth to return to [facility]; there was denial and had very short period of time yesterday to complete P2P during which Dr. White was in surgery and I was off so not able to be completed so this was denied. [facility] has initiated appeal process. [facility] has confirmed with [facility] that patient can return to [facility] during the appeal process. Objective Data Objective Data Vital Signs: Vital Signs Temp Pulse Resp BP Pulse Ox O2 Del Method O2 Flow Rate 97 F L 52 L 12 110/51 L 94 Room Air 2 09/04/24 08:15 09/04/24 11:01 09/04/24 08:15 09/04/24 11:01 09/04/24 10:04 09/04/24 10:04 08/30/24 21:37 Oxygen Flow Rate (L/min) 2 Oxygen Delivery Method Room Air Weight: 195 lb 12.328 oz Body Mass Index (BMI) 30.7 Intake & Output: Intake and Output for Last 24 Hours 09/02/24 09/03/24 09/04/24 23:59 23:59 23:59 Intake Total 1300 / 1600 500 / 500 Output Total 0 / 0 Balance 1300 / 1600 500 / 500 Lab / Micro Data 09/03/24 05:33 09/02/24 05:44 Labs: Laboratory Results - last 24 hr 09/03/24 11:02: POC Glucose 172 H 09/03/24 16:37: POC Glucose 212 H 09/03/24 22:21: POC Glucose 219 H 09/04/24 06:43: POC Glucose 151 H Radiography Diagnostic Testing: Radiology Impression A/V Fistula Ultrasound 08/31/24 12:22 Interpretation Summary 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 Small caliber vessel at distal outflow. Ordering Physician: Cervantes, Salma Referring Physician: Nando Wiggins Performed By: Anne-Marie Monzon RVT Physical Exam Const alert, oriented x3 and no apparent distress General Appearance: cooperative and comfortable HEENT normocephalic, hearing grossly normal bilaterally, external ears normal and external nose normal Nose: external nose normal Eyes EOMs intact bilaterally General Eye: normal appearance of both eyes Neck General: normal visual inspection and trachea midline Resp normal respiratory effort, normal air movement, no retractions and no use of accessory muscles Effort and Inspection: able to speak in complete sentences Cardio regular rate and regular rhythm Extremity Extremity Narrative: R BKA site with dry dressing intact, no bleed-through. Still with mild edema, soft to palpation, no apparent ecchymosis. Amputation stump soft to palpation throughout. Visible skin viable with no evidence of ischemia. No erythema/excess warmth. Neuro oriented x3, moves all extremities and no focal motor deficits Psych mental status grossly normal Appearance: grossly normal Attitude: calm and engaged Activity / Motor Behavior: appropriate eye contact Speech: normal speech Judgement: judgement good Assessment & Plan Assessment/Plan (1) Amputation of right lower extremity below knee: QUALIFIERS: Encounter type: subsequent encounter Qualified Code(s): S88.111D - Complete traumatic amputation at level between knee and ankle, right lower leg, subsequent encounter PLAN: Plan Amputation site satisfactory in appearance; Prevena removed yesterday, now with dry dressing. Continue with CHRISTIAN wrap and elevation to manage edema. Protector should be in place most of the time, removed for wound care/hygiene and PT as needed. He is stable for discharge and [facility] able to accept while appeal process proceeds with insurance; will discharge this afternoon.
[2024-09-04 11:28] LABS: Bedside Glucose 214 mg/dL (74-106)
--- NOTE | 2024-09-04 11:58 | PHA.DC_ITS ---
Pharmacy SD Med Reconciliation Pharmacy Service has performed discharge medication reconciliation for this patient. The patient's discharge medication list was reviewed for discrepancies and discrepancies were resolved. Medications at Discharge Home Medications aspirin 81 mg tablet,delayed release (Adult Aspirin Regimen) 81 mg PO DAILY heart health 07/01/20 torsemide 100 mg tablet 100 mg PO MOWEFR water pill 04/14/24 insulin glargine 100 unit/mL (3 mL) subcutaneous pen 20 unit (0.2 mL) subcut DINNER diabetes 30 days #0 mL 04/24/24 insulin lispro 100 unit/mL subcutaneous pen (Humalog KwikPen (U-100) Insulin) See Protocol subcut ACHS dm 05/04/24 nut.tx.gluc.intol,lac-free,soy (Glucerna oral liquid) 240 ml PO DAILY SUPPLEMENT 06/04/24 sennosides 8.6 mg-docusate sodium 50 mg tablet (Stimulant Laxative Plus) 1 tab- cap PO BID PRN PRN Constipation 06/04/24 clopidogrel 75 mg tablet 75 mg PO QHS BLOOD THINNER 07/02/24 acetaminophen 325 mg tablet 650 mg PO Q8H PRN PRN Pain 1-10 Or Fever >100.7 07/13/24 cholecalciferol (vitamin D3) 125 mcg (5,000 unit) capsule 125 mcg PO DAILY SUPP LEMENT 07/13/24 insulin lispro 100 unit/mL subcutaneous pen 10 unit subcut TID DIABETES 07/13/24 albuterol sulfate 2.5 mg/3 mL (0.083 %) solution for nebulization 2.5 mg (3 mL) inhalation Q2H PRN PRN SOB &/OR WHEEZING #0 mL 07/20/24 benzocaine 15 mg-menthol 3.6 mg lozenges (Sore Throat (benzocaine with menthol)) 2 mariaa mucous membrane Q2H PRN PRN sore throat #0 ea 07/20/24 heparin (porcine) 5,000 unit/mL injection solution 5,000 unit subcut Q8 ON HOLD #0 mL 07/20/24 menthol 0.44 %-zinc oxide 20.6 % topical ointment (Calmoseptine) 1 applic topical BID SKIN IRRITATION #0 grams 07/20/24 oxycodone 5 mg tablet 2.5 mg (1/2 x 5 mg) PO Q4H PRN PRN Pain Score 4-10 30 days #60 tabs 08/15/24 oxycodone 5 mg tablet 2.5 mg (1/2 x 5 mg) PO DAILY pain 30 days #15 tabs 08/22/24 arginine 7 gram-glutam 7 gram-CaHMB 1.5 hydu-kndmm-pe-min oral pwd pkt (Dustin (with collagen)) 1 packet PO BID cellulitis 08/29/24
[2024-09-04] MEDS: Menthol/Lanolin/Calamine/Znox 113 GM Tube 1 APPLIC TOPICAL (12:38)
--- NOTE | 2024-09-04 12:47 | CASEMGMT ---
Discharge Planning Discharge orders, signed med list, and transport time sent to [facility]. Physicians will transport pt by cot at 2p. Nursing, SW, and pts ARNOL (Jey) updated. Alanna Gaston DC Planning Asst.
--- NOTE | 2024-09-04 13:04 | NURSING ---
physician's ambulance dispatched called stating they had to move hop picker time to 15:00-15:30
--- NOTE | 2024-09-04 13:47 | CASEMGMT ---
Social Work Physician updated and pt is ready for discharge today.?SW met with pt and they are agreeable to discharge plan as stated above.? DCA and bedside nurse notified of discharge. DCA to complete final notifications and arrangements Disposition:[facility], skilled level of care TERRI Keating
--- NOTE | 2024-09-04 13:48 | CASEMGMT ---
Social Work- SW received notice that pt transport time had been delayed by Physicians from 14:00 to 15:30. SAURAV updated care management associate. TERRI Keating
--- NOTE | 2024-09-05 16:43 | CASEMGMT ---
Social Work- SW re-faxed appointment of personal financial representative sheet to [employer] per [employer] request. TERRI Keating
--- NOTE | 2024-09-06 11:57 | CASEMGMT ---
Social Work- SW recieved a call from Mariel at [facility] confirming fax and reporting that they are actively working on the appeal. TERRI Kaeting
--- NOTE | 2024-09-07 17:21 | CASEMGMT ---
Social Work- Mariel from [facility] reports that appeal was approved. TERRI Keating
== END 2024-09-04 14:45 | disposition skilled nursing facility (03) | DRG 239 ==
PROVIDERS: Physician Assistant; Surgery Plastic and Reconstructive Surgery; Admitting Provider Surgery Trauma Surgery; PCP Internal Medicine; Referring Provider Surgery Trauma Surgery; Visit Provider Surgery Trauma Surgery
PROC: 0Y6H0Z2 Detachment at Right Lower Leg, Mid, Open Approach (ICD-10-PCS; principal; 2024-08-29 10:15)
DX: E11.51 Type 2 diabetes mellitus with diabetic peripheral angiopathy without gangrene (principal); N18.6 End stage renal disease; I50.32 Chronic diastolic (congestive) heart failure; D63.1 Anemia in chronic kidney disease; S91.309A Unspecified open wound, unspecified foot, initial encounter; E11.42 Type 2 diabetes mellitus with diabetic polyneuropathy; Z89.511 Acquired absence of right leg below knee; Z79.4 Long term (current) use of insulin; E78.5 Hyperlipidemia, unspecified; E11.22 Type 2 diabetes mellitus with diabetic chronic kidney disease; Z99.2 Dependence on renal dialysis; S89.91XA Unspecified injury of right lower leg, initial encounter; Z79.84 Long term (current) use of oral hypoglycemic drugs; Z79.01 Long term (current) use of anticoagulants; Z83.3 Family history of diabetes mellitus; X58.XXXA Exposure to other specified factors, initial encounter
CPT/HCPCS: 36415; 80048; 80202; 82962; 85025; 85027; 86850; 86900; 86901; 88304; 88311; 90937; 93990; 94668; 97162; 97166; 97530; 99214; 99252; A4648; A4216; G0257; G0463; J2405; Q5106

== ENCOUNTER → 2024-09-12 | Outpatient (REF) | payer MEDICARE, SELFPAY ==
[2024-09-12 08:48] LABS: Hemoglobin A1c 6.1 % (<=5.6)
[2024-09-12 09:26] LABS: AST(SGOT) 16 U/L (<=37); Alanine Aminotransfer ALT/SGPT < 5 U/L (<=46); Albumin, Serum 2.8 g/dL (3.4-4.8); Alkaline Phosphatase 55 U/L (40-129); Bilirubin, Direct 0.11 mg/dL (0.00-0.30); Globulin 3.3 g/dL (2.2-4.2); Total Bilirubin 0.25 mg/dL (0.00-1.30); Vitamin B12 717 pg/mL (180-914)
== END ==
LOC: OLS.WHLEAS 05:00
PROVIDERS: PCP Internal Medicine; Visit Provider Internal Medicine
DX: E11.22 Type 2 diabetes mellitus with diabetic chronic kidney disease (principal); N18.6 End stage renal disease; M62.561 Muscle wasting and atrophy, not elsewhere classified, right lower leg
CPT/HCPCS: 36415; 80076; 82306; 82607; 83036

== ENCOUNTER → 2024-09-17 | Outpatient (REF) | payer MEDICARE, SELFPAY ==
[2024-09-17 09:21] LABS: Absolute Lymphocyte Count 1.93 X10^3/uL (0.83-4.51); Basophil# 0.07 X10^3/uL; Basophil% 0.7 % (0-1); Eosinophil# 0.24 X10^3/uL; Eosinophils% 2.3 % (0-5); Hematocrit 32.9 % (40-54); Hemoglobin 9.7 g/dL (13.0-16.5); Lymphocyte # 1.93 X10^3/ul (0.83-4.51); Lymphocyte % 18.7 % (19-41); Mean Corp Hgb Conc 29.5 g/dL (32-36); Mean Corpuscular Hgb 27.1 pg (27.0-32.0); Mean Corpuscular Volume 91.9 fL (80-94); Mean Platelet Vol. 10.8 fl (6.2-12.0); Monocyte# 1.05 X10^3/uL; Monocyte% 10.2 % (0-10); NRBC Flagged by Analyzer 0 % (0-5); Neutrophil # 6.98 X10^3/uL (2.7-7.7); Neutrophil % 67.7 % (47-70); Platelet Count 275 K/mm3 (150-450); RBC Distribution Width CV 17.6 % (11.6-14.6); RBC Distribution Width SD 59.3 fl (35.1-43.9); Red Blood Count 3.58 M/mm3 (4.6-6.2); White Blood Count 10.3 K/mm3 (4.4-11.0)
[2024-09-17 09:52] LABS: Anion Gap 13 (5-15); BUN 52 mg/dL (4-19); BUN/Creat Ratio 12.3 RATIO (10-20); Calcium,Total 8.7 mg/dL (7.6-11.0); Carbon Dioxide 27.5 mmol/L (21.0-32.0); Chloride 93 mmol/L (98-108); Creatinine, Serum 4.25 mg/dL (0.70-1.20); EST Glomerular Filtration Rate 13 (>60); Glucose 151 mg/dL (70-99); Potassium 3.3 mmol/L (3.3-5.1); Sodium Level 134 mmol/L (133-145)
== END ==
LOC: OLS.WHLEAS 04:00
PROVIDERS: PCP Internal Medicine; Referring Provider Internal Medicine; Visit Provider Internal Medicine
DX: N18.6 End stage renal disease (principal)
CPT/HCPCS: 36415; 80048; 85025

== ENCOUNTER 2024-09-24 09:58 | Outpatient (RCR) | payer MEDICARE, SELFPAY ==
[2024-09-20 00:41] VITALS: BP 100/61; PULSE 66; RESP 16; TEMP 36.3; BMI 31.9
[2024-09-24 10:09] VITALS: BP 121/40; PULSE 44; RESP 16; TEMP 35.6; BMI 31.9
--- NOTE | 2024-09-24 11:01 | PN.SURG_ITS ---
Subjective Subjective Doing well. Here with son in law. No residual nerve pain or phantom limb pain in the RLE s/p amputation 1 month ago. Objective Data Objective Data Vital Signs: Vital Signs Temp Pulse Resp BP 96.0 F L 44 L 16 121/40 H 09/24/24 10:09 09/24/24 10:09 09/24/24 10:09 09/24/24 10:09 Weight: 204 lb Body Mass Index (BMI) 31.9 Physical Exam Narrative Right lower extremity Suture line clean dry and intact with hola in place/no induration or fluid collections Assessment & Plan Assessment/Plan (1) Amputation of right lower extremity below knee: QUALIFIERS: Encounter type: subsequent encounter Qualified Code(s): S88.111D - Complete traumatic amputation at level between knee and ankle, right lower leg, subsequent encounter PLAN: Continue ABD for padding Continue Analysis Engineer splint for knee extension and plan for stump forming with Analysis Engineer and eventual prosthesis at likely 3 months Plan from vascular is to follow-up in 2 weeks for staple removal. Agree with plan. Patient is not having any residual limb pain or phantom limb pain. Follow-up as needed. Charges/Coding Procedures Integumentary [id number]: [id number] Global Visit
--- NOTE | 2024-09-24 14:35 | WC ---
PHOTO 09/24/24 RIGHT AMELIA
== END 2024-10-18 14:31 | disposition home or self-care (01) ==
LOC: WC 09:58
PROVIDERS: PCP Internal Medicine; Referring Provider Student in an Organized Health Care Education/Training Program; Visit Provider Surgery Plastic and Reconstructive Surgery
DX: S88.111D Complete traumatic amputation at level between knee and ankle, right lower leg, subsequent encounter (principal)
CPT/HCPCS: 99213; G0463

== ENCOUNTER → 2024-09-24 | Outpatient (REF) | payer MEDICARE, SELFPAY ==
[2024-09-24 08:41] LABS: Absolute Lymphocyte Count 1.75 X10^3/uL (0.83-4.51); Basophil# 0.05 X10^3/uL; Basophil% 0.7 % (0-1); Eosinophil# 0.18 X10^3/uL; Eosinophils% 2.7 % (0-5); Hematocrit 34.6 % (40-54); Hemoglobin 10.3 g/dL (13.0-16.5); Lymphocyte # 1.75 X10^3/ul (0.83-4.51); Lymphocyte % 25.8 % (19-41); Mean Corp Hgb Conc 29.8 g/dL (32-36); Mean Corpuscular Volume 90.8 fL (80-94); Mean Platelet Vol. 11.2 fl (6.2-12.0); Monocyte% 11.8 % (0-10); NRBC Flagged by Analyzer 0 % (0-5); Neutrophil # 3.97 X10^3/uL (2.7-7.7); Neutrophil % 58.6 % (47-70); Platelet Count 209 K/mm3 (150-450); RBC Distribution Width CV 17.2 % (11.6-14.6); Red Blood Count 3.81 M/mm3 (4.6-6.2); White Blood Count 6.8 K/mm3 (4.4-11.0)
[2024-09-24 09:06] LABS: Anion Gap 14 (5-15); BUN 55 mg/dL (4-19); BUN/Creat Ratio 12.6 RATIO (10-20); Carbon Dioxide 26.2 mmol/L (21.0-32.0); Chloride 93 mmol/L (98-108); Creatinine, Serum 4.34 mg/dL (0.70-1.20); EST Glomerular Filtration Rate 13 (>60); Glucose 241 mg/dL (70-99); Potassium 3.4 mmol/L (3.3-5.1); Sodium Level 134 mmol/L (133-145)
== END ==
LOC: OLS.WHLEAS 05:00
PROVIDERS: PCP Internal Medicine; Visit Provider Internal Medicine
DX: N18.6 End stage renal disease (principal)
CPT/HCPCS: 36415; 80048; 85025

== ENCOUNTER → 2024-10-02 | Outpatient (REF) | payer MEDICARE, SELFPAY ==
[2024-10-02 07:57] LABS: Absolute Lymphocyte Count 1.76 X10^3/uL (0.83-4.51); Absolute Neutrophil Count 4.1 X10^3/uL (2.0-7.7); Basophil# 0.07 X10^3/uL; Eosinophil# 0.17 X10^3/uL; Eosinophils% 2.5 % (0-5); Hematocrit 35.1 % (40-54); Hemoglobin 10.5 g/dL (13.0-16.5); Lymphocyte # 1.76 X10^3/ul (0.83-4.51); Lymphocyte % 25.6 % (19-41); Mean Corp Hgb Conc 29.9 g/dL (32-36); Mean Corpuscular Hgb 27.3 pg (27.0-32.0); Mean Corpuscular Volume 91.4 fL (80-94); Mean Platelet Vol. 12.4 fl (6.2-12.0); Monocyte# 0.72 X10^3/uL; Monocyte% 10.5 % (0-10); NRBC Flagged by Analyzer 0 % (0-5); Neutrophil # 4.13 X10^3/uL (2.7-7.7); Neutrophil % 60.1 % (47-70); Platelet Count 158 K/mm3 (150-450); RBC Distribution Width CV 16.2 % (11.6-14.6); RBC Distribution Width SD 54.6 fl (35.1-43.9); Red Blood Count 3.84 M/mm3 (4.6-6.2); White Blood Count 6.9 K/mm3 (4.4-11.0)
[2024-10-02 08:07] LABS: Anion Gap 14 (5-15); BUN 91 mg/dL (4-19); BUN/Creat Ratio 17.4 RATIO (10-20); Carbon Dioxide 26.5 mmol/L (21.0-32.0); Chloride 90 mmol/L (98-108); Creatinine, Serum 5.22 mg/dL (0.70-1.20); EST Glomerular Filtration Rate 10 (>60); Glucose 346 mg/dL (70-99); Potassium 4.3 mmol/L (3.3-5.1); Sodium Level 131 mmol/L (133-145)
== END ==
LOC: OLS.WHLEAS 05:00
PROVIDERS: PCP Internal Medicine; Visit Provider Internal Medicine
DX: N18.6 End stage renal disease (principal)
CPT/HCPCS: 36415; 80048; 85025

== ENCOUNTER → 2024-10-08 04:00 | Outpatient (REF) | payer MEDICARE, SELFPAY ==
[2024-10-08 07:42] LABS: Absolute Lymphocyte Count 1.87 X10^3/uL (0.83-4.51); Absolute Neutrophil Count 4.1 X10^3/uL (2.0-7.7); Basophil# 0.07 X10^3/uL; Eosinophils% 2.9 % (0-5); Hematocrit 35.5 % (40-54); Hemoglobin 10.7 g/dL (13.0-16.5); Lymphocyte # 1.87 X10^3/ul (0.83-4.51); Lymphocyte % 27.5 % (19-41); Mean Corp Hgb Conc 30.1 g/dL (32-36); Mean Corpuscular Hgb 27.4 pg (27.0-32.0); Mean Platelet Vol. 12.2 fl (6.2-12.0); Monocyte# 0.56 X10^3/uL; Monocyte% 8.2 % (0-10); NRBC Flagged by Analyzer 0 % (0-5); Neutrophil # 4.08 X10^3/uL (2.7-7.7); Platelet Count 164 K/mm3 (150-450); RBC Distribution Width SD 54.2 fl (35.1-43.9); White Blood Count 6.8 K/mm3 (4.4-11.0)
[2024-10-08 07:49] LABS: Anion Gap 13 (5-15); BUN 59 mg/dL (4-19); BUN/Creat Ratio 13.2 RATIO (10-20); Calcium,Total 9.2 mg/dL (7.6-11.0); Carbon Dioxide 26.7 mmol/L (21.0-32.0); Chloride 95 mmol/L (98-108); Creatinine, Serum 4.42 mg/dL (0.70-1.20); EST Glomerular Filtration Rate 12 (>60); Glucose 177 mg/dL (70-99); Potassium 4.1 mmol/L (3.3-5.1); Sodium Level 135 mmol/L (133-145)
== END ==
LOC: OLS.WHLEAS 04:00
PROVIDERS: PCP Internal Medicine; Referring Provider Internal Medicine; Visit Provider Internal Medicine
DX: N18.6 End stage renal disease (principal)
CPT/HCPCS: 36415; 80048; 85025

== ENCOUNTER → 2024-10-16 05:00 | Outpatient (REF) | payer MEDICARE, SELFPAY ==
[2024-10-16 07:32] LABS: Absolute Neutrophil Count 6.3 X10^3/uL (2.0-7.7); Basophil# 0.06 X10^3/uL; Basophil% 0.7 % (0-1); Eosinophil# 0.24 X10^3/uL; Eosinophils% 2.7 % (0-5); Hemoglobin 10.4 g/dL (13.0-16.5); Lymphocyte % 15.9 % (19-41); Mean Corp Hgb Conc 30.6 g/dL (32-36); Mean Corpuscular Hgb 27.6 pg (27.0-32.0); Mean Corpuscular Volume 90.2 fL (80-94); Mean Platelet Vol. 12.1 fl (6.2-12.0); Monocyte# 0.82 X10^3/uL; Monocyte% 9.3 % (0-10); NRBC Flagged by Analyzer 0 % (0-5); Neutrophil # 6.26 X10^3/uL (2.7-7.7); Neutrophil % 71.1 % (47-70); Platelet Count 152 K/mm3 (150-450); RBC Distribution Width CV 15.8 % (11.6-14.6); RBC Distribution Width SD 52.2 fl (35.1-43.9); Red Blood Count 3.77 M/mm3 (4.6-6.2); White Blood Count 8.8 K/mm3 (4.4-11.0)
[2024-10-16 07:44] LABS: Anion Gap 14 (5-15); BUN 78 mg/dL (4-19); BUN/Creat Ratio 13.8 RATIO (10-20); Calcium,Total 8.9 mg/dL (7.6-11.0); Carbon Dioxide 27.7 mmol/L (21.0-32.0); Chloride 93 mmol/L (98-108); Creatinine, Serum 5.65 mg/dL (0.70-1.20); EST Glomerular Filtration Rate 9 (>60); Glucose 169 mg/dL (70-99); Potassium 4.6 mmol/L (3.3-5.1); Sodium Level 135 mmol/L (133-145)
== END ==
LOC: OLS.WHLEAS 05:00
PROVIDERS: PCP Internal Medicine; Visit Provider Internal Medicine
DX: N18.6 End stage renal disease (principal); Z89.511 Acquired absence of right leg below knee; M62.561 Muscle wasting and atrophy, not elsewhere classified, right lower leg
CPT/HCPCS: 36415; 80048; 85025

== ENCOUNTER → 2024-10-22 05:00 | Outpatient (REF) | payer MEDICARE, SELFPAY ==
[2024-10-22 08:00] LABS: Absolute Lymphocyte Count 1.76 X10^3/uL (0.83-4.51); Absolute Neutrophil Count 5.9 X10^3/uL (2.0-7.7); Basophil# 0.05 X10^3/uL; Basophil% 0.6 % (0-1); Eosinophil# 0.27 X10^3/uL; Hematocrit 35.6 % (40-54); Hemoglobin 10.7 g/dL (13.0-16.5); Lymphocyte # 1.76 X10^3/ul (0.83-4.51); Lymphocyte % 19.8 % (19-41); Mean Corp Hgb Conc 30.1 g/dL (32-36); Mean Corpuscular Hgb 27.2 pg (27.0-32.0); Mean Corpuscular Volume 90.6 fL (80-94); Mean Platelet Vol. 11.9 fl (6.2-12.0); Monocyte% 10.1 % (0-10); NRBC Flagged by Analyzer 0 % (0-5); Neutrophil # 5.88 X10^3/uL (2.7-7.7); Neutrophil % 66.1 % (47-70); Platelet Count 167 K/mm3 (150-450); RBC Distribution Width CV 15.9 % (11.6-14.6); RBC Distribution Width SD 53.1 fl (35.1-43.9); Red Blood Count 3.93 M/mm3 (4.6-6.2); White Blood Count 8.9 K/mm3 (4.4-11.0)
[2024-10-22 08:19] LABS: Anion Gap 16 (5-15); BUN 56 mg/dL (4-19); BUN/Creat Ratio 12.2 RATIO (10-20); Calcium,Total 9.1 mg/dL (7.6-11.0); Carbon Dioxide 27.2 mmol/L (21.0-32.0); Chloride 91 mmol/L (98-108); Creatinine, Serum 4.58 mg/dL (0.70-1.20); EST Glomerular Filtration Rate 12 (>60); Glucose 131 mg/dL (70-99); Potassium 4.1 mmol/L (3.3-5.1); Sodium Level 134 mmol/L (133-145)
== END ==
LOC: OLS.WHLEAS 05:00
PROVIDERS: PCP Internal Medicine; Visit Provider Internal Medicine
DX: N18.6 End stage renal disease (principal); M62.561 Muscle wasting and atrophy, not elsewhere classified, right lower leg; Z89.511 Acquired absence of right leg below knee
CPT/HCPCS: 36415; 80048; 85025

== ENCOUNTER → 2024-10-29 04:00 | Outpatient (REF) | payer MEDICARE, SELFPAY ==
[2024-10-29 07:52] LABS: Absolute Neutrophil Count 4.5 X10^3/uL (2.0-7.7); Basophil# 0.07 X10^3/uL; Basophil% 0.9 % (0-1); Eosinophil# 0.39 X10^3/uL; Eosinophils% 4.8 % (0-5); Hematocrit 37.8 % (40-54); Hemoglobin 11.6 g/dL (13.0-16.5); Lymphocyte % 27.2 % (19-41); Mean Corp Hgb Conc 30.7 g/dL (32-36); Mean Corpuscular Hgb 27.4 pg (27.0-32.0); Mean Corpuscular Volume 89.2 fL (80-94); Mean Platelet Vol. 11.1 fl (6.2-12.0); Monocyte% 11.1 % (0-10); NRBC Flagged by Analyzer 0 % (0-5); Neutrophil % 55.8 % (47-70); Platelet Count 219 K/mm3 (150-450); RBC Distribution Width CV 16.9 % (11.6-14.6); RBC Distribution Width SD 53.9 fl (35.1-43.9); Red Blood Count 4.24 M/mm3 (4.6-6.2); White Blood Count 8.1 K/mm3 (4.4-11.0)
[2024-10-29 08:08] LABS: Anion Gap 16 (5-15); BUN 53 mg/dL (4-19); BUN/Creat Ratio 9.4 RATIO (10-20); Calcium,Total 9.5 mg/dL (7.6-11.0); Carbon Dioxide 25.6 mmol/L (21.0-32.0); Chloride 93 mmol/L (98-108); Creatinine, Serum 5.65 mg/dL (0.70-1.20); EST Glomerular Filtration Rate 9 (>60); Glucose 86 mg/dL (70-99); Potassium 4.4 mmol/L (3.3-5.1); Sodium Level 135 mmol/L (133-145)
== END ==
LOC: OLS.WHLEAS 04:00
PROVIDERS: PCP Internal Medicine; Referring Provider Internal Medicine; Visit Provider Internal Medicine
DX: N18.6 End stage renal disease (principal)
CPT/HCPCS: 36415; 80048; 85025

== ENCOUNTER → 2024-11-05 | Outpatient (REF) | payer MEDICARE, SELFPAY ==
--- OUTSIDE RECORDS SUMMARY | 2024-11-05 04:32 | XMS RPT_ITS | CCD ---
Author Organization [employer] [facility] Care Team Providers Care Janitor Head Name Role Phone Patricia HALL, Alanna Jacobson Unavailable Unavailable Carmen Hurt Unavailable Unavailable ISABEL Kraus, Bernarda Raymundo Unavailable Unavailhoward Gomez RN, Alanna Jacobson Unavailable Unavailable Carmen Hurt Unavailable Unavailable Justyn West Y Unavailable Unavailable Carmen Hurt Unavailable Unavailable Husam Yan MD Primary Care Provider Dr. Jean Yan Primary Care Provider [phone] Dr. Jean Yan Referring Provider EMILY Foley Attending Provider Dr. Randal Macias Attending Provider Dr. Randal Macias Referring Provider Dr. Randal Macias Other Provider Husam Yan MD Primary Care Provider Husam Yan MD Primary Care Provider Husam Yan MD Primary Care Provider SCHUYLER ARREAGA MD, JEAN PIERRE Attending UnavailJERMAINE Benavides MD Consulting Unavailable GARY HOWARD MD Consulting Unavailable uHsam Yan MD Primary Care Provider Podlogar SURGICAL ASSISTANT.Lauren ESCOBAR Unavailable HUSAM YAN Primary Care Unavailab le PODLAUREN TIWARI Attending Unavailable DANILO MARTINES Referring Unavailable HUSAM YAN Primary Care Unavailab le PODLOGAR, LAUREN Attending Unavailable HUSAM YAN Primary Care Unavailab le PODLOGAR, LAUREN Referring Unavailable HUSAM YAN Primary Care Unavailab sean Yan MD, Dr. Pena Primary Care Provider Nando Wiggins MD Attending Provider Unavailuzma Ruelas DPM, Dr. Nunes Attending Provider Suraj NIETO, Dr. Nunes Referring Provider Rosalie AVILA, Dr. Collier Primary Care Provider Paola SMELTER LINER-C, Meredith Attending Provider Nando Wiggins MD Referring Provider Unavailuzma Mendoza DPM, Dr. Kelley Referring Provider Yuriy AVILA, Dr. Pena Referring Provider Salma Dugan Attending Provider Jerome AVILA, Dr. Byers Emergency Provider Arlin DIEZ, Dr. Conley Admit Provider Arlin DIEZ, Dr. Conley Attending Provider Artie AVILA, Dr. Jackson Other Provider Arlin DIEZ, Dr. Colney Other Provider Rigoberto AVILA, Dr. Reyes Attending Provider Rigoberto AVILA, Dr. Reyes Emergency Provider Eze DIEZ, Dr. Vargas Attending Provider Eze DIEZ, Dr. Vargas Emergency Provider Mookie AVILA, Dr. Tee Attending Provider Juliann AVILA, Dr. Wilkes Referring Provider Juliann AVILA, Dr. Wilkes Emergency Provider Enrrique AVILA, Dr. Dickerson Admit Provider Enrrique AVILA, Dr. Dickerson Other Provider Navin AVILA, Dr. Romano Other Provider Silviano AVILA, Dr. Tee Other Provider Jose NIETO, Dr. Bahena Other Provider Herbert DIEZ, Dr. Pfeiffer Attending Provider Navin AVILA, Dr. Romano Attending Provider Enrrique AVILA, Dr. Dickerson Attending Provider Kenneth AVILA, Dr. Estevez Attending Provider Herbert DIEZ, Dr. Pfeiffer Other Provider Christopher AVILA, Dr. Elliott Attending Provider Enrrique AVILA, Dr. Dickerson Referring Provider Mookie AVILA, Dr. Tee Other Provider Radha DIEZ, Dr. Nunes Attending Provider Radha DIEZ, Dr. Nunes Emergency Provider Mookie AVILA, Dr. Tee Referring Provider Rosalie AVILA, Dr. Collier Attending Provider Christopher AVILA, Dr. Elliott Admit Provider Dr. Earl White MD Referring Provider Dr. Earl White MD Other Provider Salma Dugan Referring Provider Dr. Nando Wiggins MD Referring Provider [phone] Dr. Nando Wiggins MD Primary Care Provider Nando Wiggins MD Attending Provider Ag Guevara NP-Meredith Cooley Attending Provider Reji NIETO, Dr. Kelley Referring Provider Nando Wiggins MD Referring Provider Ag Wiggins MD, Dr. Collier Primary Care Provider Salma Dugan Attending Provider Nando Mejia Attending Unavailabl e Oleghe, Efewongbe Primary Care Unavailable Oleghe OLS, Efewongbe Attending Unavailabl e Oleghe, Efewongbe Primary Care Unavailable Oleghe OLS, Efewongbe Attending Unavailabl e Oleghe, Efewongbe Primary Care Unavailable Des Ruelas Attending Unavailable Des Ruelas Referring Unavailable Bursley, Jean Primary Care Unavailable Christopher, Earl Attending Unavailable Frederick, Earl Referring Unavailable Christopher, Earl Admitting Unavailable Oleghe, Efewongbe Primary Care Unavailable Siska, Randal Consulting Unavailable Christopher, Earl Consulting Unavailable Siska Randal Attending Unavailable Christopher, Earl Admitting Unavailable Salma Cervantes Attending Unavailable Frederick, Earl Referring Unavailable Mookie Randal Consulting Unavailable Oleghe, Efewongbe Primary Care Unavailable Artie, Jayaprakas Consulting Unavailable Christopher, Earl Consulting Unavailable Christopher, Earl Attending Unavailable Christopher, Earl Attending Unavailable Frederick, Earl Referring Unavailable Christopher, Earl Admitting Unavailable Mookie, Randal Consulting Unavailable Oleghe, Efewongbe Primary Care Unavailable Artie, Jayaprakas Consulting Unavailable Warren Mendoza Attending Unavailable Warren Mendoza Referring Unavailable Bursley, Jean Primary Care Unavailable Des Ruelas Attending Unavailable Warren Mendoza Referring Unavailable Bursley, Jean Primary Care Unavailable Christopher, Earl Attending Unavailable Christopher, Earl Referring Unavailable Bursley, Jean Primary Care Unavailable Oleghe, Efewongbe Primary Care Unavailable Alicia Loo Attending Unavailable Oleghe, Efewongbe Primary Care Unavailable Eric Franklin Attending Unavailable Warren Mendoza Referring Unavailable Randal Damico Attending Unavailable Oleghe, Efewongbe Primary Care Unavailable Oleghe, Efewongbe Primary Care Unavailable Bursley, Jean Referring Unavailable Salma Cervantes Attending Unavailable Jayla Osuna Consulting Unavailable Jayla Osuna Admitting Unavailable Margarette Godinez Attending Unavailable Oleghe, Efewongbe Primary Care Unavailable Chung Humphreys Referring Unavailable Juan Antonio Holden Consulting Unavailable Randal Shore Consulting Unavailable Artie, Jayaprakas Consulting Unavailable Josef Garcia Consulting Unavailable Margarette Godinez Consulting Unavailable Warren Mendoza Consulting Unavailable Jayla Osuna Admitting Unavailable Juan Antonio Holden Attending Unavailable Bursley, Jean Primary Care Unavailable Artie, Jayaprakas Consulting Unavailable Jayla Osuna Consulting Unavailable Randal Shore Consulting Unavailable Frederick, Earl Consulting Unavailable Arlin, Fernando Consulting Unavailable Earl Mora Consulting Unavailable Jayla Osuna Attending Unavailable Earl White Attending Unavailable Warren Mendoza Consulting Unavailable Jayla Osuna Admitting Unavailable Bursley, Jean Primary Care Unavailable Artie, Jayaprakas Consulting Unavailable Enrrique, Jayla Consulting Unavailable Randal Shore Consulting Unavailable Christopher, Earl Consulting Unavailable Fernando Oliveros Consulting Unavailable Oleghe, Efewongbe Attending Unavailable Bursley, Jean Primary Care Unavailable Oleghe, Efewongbe Attending Unavailable Oleghe, Efewongbe Primary Care Unavailable Oleghe, Efewongbe Primary Care Unavailable Tickton SMELTER LINER, Meredith Attending Unavailable Oleghe, Efewongbe Primary Care Unavailable Tickton SMELTER LINER, Meredith Attending Unavailable Tickton SMELTER LINER, Meredith Attending Unavailable Oleghe, Efewongbe Primary Care Unavailable Suellenton SMELTER LINER, Meredith Attending Unavailable Oleghe, Efewongbe Primary Care Unavailable Suellenton SMELTER LINER, Meredith Attending Unavailable Oleghe, Efewongbe Primary Care Unavailable Juan Antonio Holden Attending Unavailable Jaswant Montgomery Admitting Unavailable Jaswant Montgomery Attending Unavailable Des Ruelas Consulting Unavailable Bursley, Jean Primary Care Unavailable Earl White Consulting Unavailable Tanphaichikenny Natthavat Consulting Unavaila ble Jaswant Montgomery Consulting Unavailable Artie, Jayaprakas Consulting Unavailable Oleghe, Efewongbe Primary Care Unavailable Fernando Oliveros Admitting Unavailable Fernando Oliveros Attending Unavailable Fernando Oliveros Consulting Unavailable Bursley, Jean Primary Care Unavailable Tickton SMELTER LINER, Meredith Attending Unavailable Tickton SMELTER LINER, Meredith Attending Unavailable Oleghe, Efewongbe Primary Care Unavailable Tickton SMELTER LINER, Meredith Attending Unavailable Oleghe, Efewongbe Primary Care Unavailable Oleghe, Efewongbe Primary Care Unavailable Des Garcia Attending Unavailable Oleghe, Efewongbe Primary Care Unavailable Oleghe OLS, Efewongbe Attending Unavailabl e Oleghe OLS, Efewongbe Attending Unavailabl e Oleghe, Efewongbe Primary Care Unavailable Warren Mendoza Referring Unavailable Randal Damico Attending Unavailable Oleghe, Efewongbe Primary Care Unavailable Salma Cervantes Attending Unavailable Oleghe, Efewongbe Primary Care Unavailable Salma Cervantes Referring Unavailable Oleghe OLS, Efewongbe Attending Unavailabl e Bursley, Jean Primary Care Unavailable Oleghe OLS, Efewongbe Attending Unavailabl e Bursley, Jean Primary Care Unavailable Enrrique Jayla Admitting Unavailable Enrrique Jayla Consulting Unavailable Margarette Godinez Attending Unavailable Chung Humphreys Referring Unavailable Oleghe, Efewongbe Primary Care Unavailable Juan Antonio Holden Consulting Unavailable Randal Shore Consulting Unavailable Manuel Alva Consulting Unavailable Josef Garcia Unavailable Oleghe OLS, Efewongbe Attending Unavailabl e Bursley, Jean Primary Care Unavailable Oleghe OLS, Efewongbe Attending Unavailabl e Bursley, Jean Primary Care Unavailable Oleghe OLS, Efewongbe Attending Unavailabl e Bursley, Jean Primary Care Unavailable Oleghe OLS, Efewongbe Attending Unavailabl e Oleghe, Efewongbe Primary Care Unavailable Oleghe OLS, Efewongbe Attending Unavailabl e Oleghe OLS, Efewongbe Referring Unavailabl e Bursley, Jean Primary Care Unavailable Salma Cervantes Attending Unavailable Deni Shields Referring Unavailable Randal Shore Consulting Unavailable Deni Shields Consulting Unavailable Enrrique, Jayla Consulting Unavailable Enrrique Jayla Admitting Unavailable Jayla Osuna Attending Unavailable Chung Humphreys Referring Unavailable Oleghe, Efewongbe Primary Care Unavailable Earl White Attending Unavailable Enrrique, Jayla Referring Unavailable Oleghe, Efewongbe Primary Care Unavailable Earl White Attending Unavailable Osuna, Jayla Referring Unavailable Oleghe, Efewongbe Primary Care Unavailable Oleghe, Efewongbe Primary Care Unavailable Zenaida Cooper Attending Unavailabl e Randal Damico Consulting Unavailable Sisdhaval Randal Attending Unavailable Siska, Randal Referring Unavailable Oleghe, Efewongbe Primary Care Unavailable Warren Mendoza Referring Unavailable SisRandal puentes Consulting Unavailable Sisdhaval Randal Attending Unavailable Oleghe, Efewongbe Primary Care Unavailable Warren Mendoza Referring Unavailable Sisdhaval Randal Consulting Unavailable Sisdhaval Randal Attending Unavailable Oleghe, Efewongbe Primary Care Unavailable Christopher Earl Attending Unavailable Frederick, Earl Referring Unavailable Frederick, Earl Consulting Unavailable Bursley, Jean Primary Care Unavailable Warren Mendoza Consulting Unavailable Warren Mendoza Referring Unavailable Salma Cervantes Attending Unavailable Bursley, Jean Primary Care Unavailable Siska, Randal Consulting Unavailable Sisdhaval, Randal Attending Unavailable Siska, Randal Referring Unavailable Oleghe, Efewongbe Primary Care Unavailable Warren Mendoza Referring Unavailable Siska, Randal Consulting Unavailable Siska, Randal Attending Unavailable Oleghe, Efewongbe Primary Care Unavailable Siska, Randal Consulting Unavailable Siska, Randal Attending Unavailable Siska, Randal Referring Unavailable Oleghe, Efewongbe Primary Care Unavailable Wes Cervantesison Attending Unavailable Oleghe, Efewongbe Referring Unavailable Oleghe, Efewongbe Primary Care Unavailable Oleghe, Efewongbe Primary Care Unavailable Meredith Guevara NP Attending Unavailable Salma Cervantes Attending Unavailable Oleghe, Efewongbe Primary Care Unavailable Oleghe, Efewongbe Referring Unavailable Oleghe OLS, Efewongbe Attending Unavailabl e Oleghe, Efewongbe Primary Care Unavailable Oleghe OLS, Efewongbe Attending Unavailabl e Bursley, Jean Primary Care Unavailable Yunior Davey Attending Unavailable Bursley, Jean Primary Care Unavailable Oleghe OLS, Efewongbe Referring Unavailabl e Oleghe OLS, Efewongbe Attending Unavailabl e Oleghe, Efewongbe Primary Care Unavailable Warren Mendoza Referring Unavailable Randal Damico Attending Unavailable Oleghe, Efewongbe Primary Care Unavailable Oleghe OLS, Efewongbe Attending Unavailabl e Oleghe, Efewongbe Primary Care Unavailable Oleghe OLS, Efewongbe Referring Unavailabl e Oleghe OLS, Efewongbe Attending Unavailabl e Oleghe, Efewongbe Primary Care Unavailable Earl Mora Attending Unavailable Earl Mora Consulting Unavailable Fernando Oliveros Attending Unavailable Deni Shields Attending Unavailable Oleghe, Efewongbe Primary Care Unavailable Bursley, Jean Referring Unavailable Pooja Ruano NP Attending Unavailable Oleghe OLS, Efewongbe Attending Unavailabl e Oleghe, Efewongbe Primary Care Unavailable Oleghe OLS, Efewongbe Attending Unavailabl e Oleghe, Efewongbe Primary Care Unavailable Oleghe OLS, Efewongbe Attending Unavailabl e Oleghe, Efewongbe Primary Care Unavailable Oleghe OLS, Efewongbe Attending Unavailabl e Oleghe, Efewongbe Primary Care Unavailable Oleghe OLS, Efewongbe Attending Unavailabl e Oleghe, Efewongbe Primary Care Unavailable Oleghe OLS, Efewongbe Attending Unavailabl e Bursley, Jean Primary Care Unavailable Salma Cervantes Attending Unavailable Deni Shields Referring Unavailable Bursley, Jean Primary Care Unavailable Earl White Attending Unavailable Salma Cervantes Referring Unavailable Oleghe, Efewongbe Primary Care Unavailable Earl White Attending Unavailable Jayla Osuna Referring Unavailable Bursley, Jean Primary Care Unavailable Warren Jackson Attending Unavailable Bursley, Jean Primary Care Unavailable Itz Mahan Referring Unavailable Salma Cervantes Attending Unavailable Oleghe, Efewongbe Primary Care Unavailable Oleghe, Efewongbe Referring Unavailable Earl White Attending Unavailable Wes Cervantesison Referring Unavailable Bursley, Jean Primary Care Unavailable Warren Mendoza Referring Unavailable Randal Damico Consulting Unavailable Randal Damico Attending Unavailable Oleghe, Efewongbe Primary Care Unavailable Randal Damico Attending Unavailable Artie, Jayaprakas Consulting Unavailable Oleghe OLS, Efewongbe Referring Unavailabl e Oleghe OLS, Efewongbe Attending Unavailabl e Oleghe, Efewongbe Primary Care Unavailable Randal Damico Attending Unavailable Warren Mendoza Referring Unavailable Oleghe, Efewongbe Primary Care Unavailable Artie, Jayaprakas Consulting Unavailable Oleghe, Efewongbe Primary Care Unavailable Fernando Oliveros Admitting Unavailable Fernando Oliveros Attending Unavailable Deni Shields Attending Unavailable Jaswant Montgomery Consulting Unavailable Jaswant Montgomery Admitting Unavailable Randal Shore Consulting Unavailable Tanphaichitr, Natthavat Consulting Unavaila Des Mcintyre Consulting Unavailable Earl White Consulting Unavailable Jayla Osuna Attending Unavailable Jayla Osuna Attending Unavailable Bursley, Jean Primary Care Unavailable Juan Antonio Holden Attending Unavailable Juan Antonio Holden Consulting Unavailable Salma Cervantes Attending Unavailable Fernando Oliveros Referring Unavailable Oleghe OLS, Efewongbe Attending Unavailabl e Oleghe, Efewongbe Primary Care Unavailable Nando Mejia Attending Nando Damian Primary Care Unavailable Nando Mejia Attending Nando Damian Primary Care Unavailable Allergies Allergy Classification Reported Allergen(s) Allergy Type Date of Onset Reaction(s) Facility (20 sources) atenolol; Translations: [ATENOLOL] allergy to substance 0 GI Upset [facility] Work Phone: (17 sources) pioglitazone drug allergy 7 fatigue [facility] Work Phone: (12 sources) simvastatin drug allergy 7 myalgia [facility] Work Phone: (12 sources) SITagliptin drug allergy 7 [facility] Work Phone: (20 sources) pioglitazone; Translations: [PIOGLITAZONE HCL] Drug Allergy 7 Other: See Comments [facility] Work Phone: (20 sources) Simvastatin; Translations: [SIMVASTATIN] Drug Allergy 7 myalgia [facility] Work Phone: (20 sources) SITagliptin; Translations: [SITAGLIPTIN] Drug Allergy 4 Other: See Comments [facility] (5 sources) pioglitazone Drug Allergy 2 fatigue [facility] (12 sources) semaglutide; Translations: [SEMAGLUTIDE] Drug Allergy 4 GI Upset [facility] (1 source) pioglitazone Drug Allergy 5 [facility] (1 source) Simvastatin Drug Allergy 5 [facility] (1 source) SITagliptin Drug Allergy 5 [facility] Medications Current Medications Medication Drug Class(es) Dates Sig (Normalized) Sig (Original) 0.25 MG, 0.5 MG Dose 3 ML semaglutide 0.68 MG/ML Pen Injector [Ozempic] (1 source) Start: 09-07-2023 Ozempic 2 mg/3 mL (0.25 mg or 0.5 mg dose) subcutaneous solution Dose : 0.5 mg =, Subcutaneous, Tuesday, rotate injection sites, 0 Refill(s) Start Date: 09/07/23 Status: Ordered acetaminophen 325 mg oral tablet (8 sources) Start: 04-24-2024 End: 07-13-2024 albuterol 0.83 mg/ml inhalation solution (4 sources) beta2-Adrenergic Agonist Start: 07-20-2024 aspirin 81 mg delayed release oral tablet (20 sources) Nonsteroidal Anti-inflammatory Drug Start: 07-01-2020 Start: 05-12-2017 End: 06-24-2020 Start: 10-26-2016 take 1 tablet by davin th once daily ASPIRIN EC 81 MG TBEC One tablet by mouth daily ASPIRIN [id number] Bernarda Kraus RN Start: 04-06-2013 take 1 tablet by davin th once daily at mealtime Aspirin 81 mg tab Take 1 tablet by mouth once daily. Take with food. 30 tablet 04/06/2013 Active Comment on above: Take 1 tablet by davin th once daily. Take with food. benzocaine 15 mg / menthol 3.6 mg oral lozenge (4 sources) Standardized Chemical Allergen Start: 07-20-2024 Blood-Glucose Meter misc (20 sources) Start: 08-30-2016 Blood-Glucose Meter misc Dispense 1 kit. Dx: E11.65 1 Each 08/30/2016 Active Start: 08-30-2016 Blood-Glucose Meter misc Dispense 1 kit. Dx: E11.65 1 Each 0 08/30/2016 Active Comment on above: Dispense 1 kit. Dx: E11.65 brimonidine tartrate 2 mg/ml ophthalmic solution (1 source) alpha-Adrenergic Agonist Start: 09-07-2023 brimonidine 0.2% ophthalmic solution Dose = 1 drop(s), Eye, right, BID, 0 Refill(s) Start Date: 09/07/23 Status: Ordered cholecalciferol 0.125 mg oral capsule (20 sources) Vitamin D Start: 07-13-2024 Start: 05-02-2020 End: 07-13-2024 Start: 10-27-2016 take 1 tablet by davin th once daily EQL VITAMIN D3 CAPS One tablet by mouth daily CHOLECALCIFEROL CAPS [id number] Laron Bacon MD take 1 tablet by davin th once daily cholecalciferol (VITAMIN D3) 5,000 unit tab Take 5,000 Units by mouth once daily. Active Comment on above: Take 5,000 Units by mouth once daily. clotrimazole 10 mg/ml topical cream (2 sources) Azole Antifungal Start: 09-06-2023 End: 09-20-2023 clotrimazole (LOTRIMIN) 1 % cream Apply to affected area two times a day for 14 days. 28 g 1 09/06/2023 09/20/2023 Active Start: 02-21-2023 End: 03-07-2023 clotrimazole (LOTRIMIN) 1 % cream Indications: Tinea pedis of both feet , Thickened nails Apply to affected area two times a day for 14 days. 28 g 1 02/21/2023 03/07/2023 Active Comment on above: Apply to affected ar ea two times a day for 14 days. COMPOUNDED PRESCRIPTION (20 sources) Start: 04-06-2013 COMPOUNDED PRESCRIPTION Crill Oil, Take 1 tablet daily. 0 04/06/2013 Active Start: 06-23-2005 COMPOUNDED PRE SCRIPTION robin msm take two in morning 0 06/23/2005 Active Comment on above: robin msm take two in morning Crill Oil, Take 1 ta blet daily. docusate sodium 50 mg / sennosides, long term 8.6 mg oral tablet (8 sources) Start: 04-24-2024 End: 06-04-2024 flash glucose scanning reader (FREESTYLE GELACIO 14 DAY READER) (17 sources) Start: 06-08-2023 flash glucose scanning reade r (FREESTYLE GELACIO 14 DAY READER) Indications: 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 edema, with long-term current use of insulin (HCC) 1 Units four times daily. 1 Each 06/08/2023 Active Start: 06-08-2023 flash glucose scanning reader (FREESTYLE GELACIO 14 DAY READER) Indications: 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 edema, with long-term current use of insulin (HCC) 1 Units four times daily. 1 Each 0 06/08/2023 Active Comment on above: 1 Units four times d aily. flash glucose sensor (FREESTYLE GELACIO 2 SENSOR) kit (14 sources) Start: 01-06-2024 flash glucose sensor (FREESTYLE GELACIO 2 SENSOR) kit Indications: 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 edema, with long-term current use of insulin (HCC) 2 Each four times daily. 6 Kit 1 01/06/2024 Active Start: 08-08-2023 End: 01-06-2024 flash glucose sensor (FREEST YLE GELACIO 2 SENSOR) kit 2 Each four times daily. 6 Kit 1 08/08/2023 01/06/2024 Discontinued Start: 08-08-2023 flash glucose sensor (FREESTYLE GELACIO 2 SENSOR) kit 2 Each four times daily. 6 Kit 1 08/08/2023 Active Comment on above: 2 Each four times da pratima. FreeStyle Gelacio 14 Day Sensor kit (1 source) Start: 09-07-19 FreeStyle Gelacio 14 Day Sensor kit FreeStyle Gelacio 14 Day Sensor kit, CHANGE APPLIANCE EVERY 14 DAYS, 0 Refill(s) Start Date: 09/07/23 Status: Ordered ketorolac tromethamine 5 mg/ml ophthalmic solution (1 source) Nonsteroidal Anti-inflammatory Drug, Cyclooxygenase Inhibitor Start: 09-07-19 ketorolac 0.5% ophthalmic solution Dose = 1 drop(s), Eye, right, QID, 0 Refill(s) Start Date: 09/07/23 Status: Ordered latanoprostene bunod 0.24 mg/ml ophthalmic solution (1 source) Start: 09-07-19 Vyzulta 0.024% ophthalmic solution Dose = 1 drop(s), Eyes, both, qHS, # 5 mL, 0 Refill(s) Start Date: 09/07/23 Status: Ordered mecobalamin (20 sources) take 1 tablet by mouth every other day mecobalamin (B12 ACTIVE ORAL) Take 1 tablet by mouth once daily. Every other day Active take 1 tablet by mouth every oth er day mecobalamin (B12 ACTIVE ORAL) Take 1 tablet by mouth once daily. Every other day 0 Active take 1 tablet by mouth once leeroy y mecobalamin (B12 ACTIVE ORAL) Take 1 tablet by mouth once daily. 0 Active Comment on above: Take 1 tablet by davin th once daily. Take 1 tablet by davin th once daily. Every other day ofloxacin 3 mg/ml ophthalmic solution (1 source) Quinolone Antimicrobial Start: 09-07-2023 ofloxacin 0.3% ophthalmic solution Dose = 1 drop(s), Eye, right, QID, # 10 mL, 0 Refill(s) Start Date: 09/07/23 Status: Ordered 12 hr timolol 5 mg/ml ophthalmic solution (1 source) beta-Adrenergic Prakash Start: 09-07-2023 timolol maleate 0.5% ophthalmic solution Dose = 1 drop(s), Eye, right, BID, # 10 mL, 0 Refill(s) Start Date: 09/07/23 Status: Ordered torsemide 100 mg oral tablet (10 sources) Loop Diuretic Start: 03-28-2024 Vitamin D3 25 mcg (1000 intl units) oral capsule (1 source) Start: 09-07-2023 Vitamin D3 25 mcg (1000 intl units) oral capsule Dose : 25 mcg = 1 cap(s), Oral, Daily, 0 Refill(s) Start Date: 09/07/23 Status: Ordered (16 sources) Start: 08-29-2024 Start: 07-20-2024 Start: 06-04-2024 Start: 09-24-2022 End: 10-07-2023 Completed/Discontinued Medications Medication Drug Class(es) Dates Sig (Normalized) Sig (Original) acetaminophen 325 mg / oxyCODONE hydrochloride 2.5 mg oral tablet (16 sources) Opioid Agonist Start: 07-13-2024 End: 07-20-2024 Start: 06-08-2024 End: 07-10-2024 Start: 06-06-2024 End: 06-06-2024 Start: 06-06-2024 End: 06-08-2024 amLODIPine 5 mg oral tablet (16 sources) Dihydropyridine Calcium Channel Prakash Start: 09-24-2022 End: 10-07-2023 Start: 05-12-2017 End: 05-02-2020 Start: 10-26-2016 take 1 tablet by davin th once daily AMLODIPINE BESYLATE 10 MG TABS One tablet by mouth daily AMLODIPINE BESYLATE [id number] Bernarda Kraus RN amoxicillin 250 mg / clavula chase 125 mg oral tablet (8 sources) Penicillin-class Antibacterial Start: 05-10-2024 End: 05-22-2024 Start: 04-24-2024 End: 05-04-2024 apixaban 2.5 mg oral tablet (12 sources) Factor Xa Inhibitor Start: 10-17-2024 Start: 06-24-2020 End: 07-05-2020 atenolol 50 mg oral tablet (12 sources) beta-Adrenergic Prakash Start: 10-26-2016 End: 10-27-2016 take 1 tablet by mouth once daily ATENOLOL 50 MG TABS One tablet by mouth daily ATENOLOL [id number] Bernarda Kraus RN B COMPLEX VITAMINS (2 sources) Start: 10-27-2016 take 1 tablet by mouth once daily B COMPLEX-B12 TABS One tablet by mouth daily B COMPLEX VITAMINS [id number] Laron Bacon MD B COMPLEX VITAMINS (3 sources) Start: 10-27-2016 take 1 tablet by mouth once daily B COMPLEX-B12 TABS One tablet by mouth daily B COMPLEX VITAMINS [id number] Laron Bacon MD cephalexin 500 mg oral capsule (5 sources) Cephalosporin Antibacterial Start: 10-13-2020 End: 10-18-2020 cinnamon bark 500 mg oral capsule (7 sources) Start: 10-26-2016 take 1 tablet by mouth once daily CINNAMON 500 MG CAPS One tablet by mouth daily CINNAMON [id number] Bernarda Kraus RN clopidogrel 75 mg oral tablet (8 sources) [id number] Platelet Inhibitor Start: 07-02-2024 End: 10-17-2024 Start: 04-24-2024 End: 06-04-2024 doxycycline hyclate 100 mg o ral capsule (8 sources) Tetracycline-class Drug Start: 05-10-2024 End: 05-22-2024 Start: 04-24-2024 End: 05-04-2024 flash glucose sensor (FREESTYLE GELACIO 14 DAY SENSOR) kit (6 sources) Start: 07-28-2023 End: 08-08-2023 flash glucose sensor (FREEST YLE GELACIO 14 DAY SENSOR) kit Indications: 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 edema, with long-term current use of insulin (HCC) 2 Each four times daily. 2 Kit 4 07/28/2023 08/08/2023 Discontinued Start: 07-28-2023 flash glucose sensor (FREESTYLE GELACIO 14 DAY SENSOR) kit Indications: 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 edema, with long-term current use of insulin (HCC) 2 Each four times daily. 2 Kit 4 07/28/2023 Active Start: 06-08-2023 End: 07-28-2023 flash glucose sensor (FREEST YLE GELACIO 14 DAY SENSOR) kit Indications: 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 edema, with long-term current use of insulin (HCC) 2 Each four times daily. 2 Kit 4 06/08/2023 07/28/2023 Discontinued Start: 06-08-2023 flash glucose sensor (FREESTYLE GELACIO 14 DAY SENSOR) kit Indications: 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 edema, with long-term current use of insulin (HCC) 2 Each four times daily. 2 Kit 4 06/08/2023 Active Comment on above: 2 Each four times da pratima. folic acid 0.4 mg / vitamin b12 0.5 mg oral tablet (5 sources) Vitamin B12 Start: 10-21-2021 End: 11-18-2021 Start: 10-21-2021 take 1 tablet by davin th once daily Vitamin D36-Rlyth Acid Active 1 TABLET PO DAILY October 21, 2021 12:00am administer with a meal glipiZIDE 10 mg oral tablet (20 sources) Sulfonylurea Start: 05-12-2017 End: 09-24-2022 Start: 05-12-2017 End: 05-18-2019 take 10 mg by mouth once daily Glipizide Discontinued 10 MG PO daily May 12, 2017 1:00am May 18, 2019 10:54am Start: 10-26-2016 take 1 tablet by davin th once daily GLIPIZIDE 10 MG TABS One tablet by mouth daily GLIPIZIDE [id number] Bernarda Kraus RN Comment on above: Take 1 tablet by davin th twice daily before meals. heparin sodium, porcine 5000 unt/ml injectable solution (4 sources) Unfractionated Heparin, Anti-coagulant Start: 07-20-2024 End: 10-17-2024 hydroCHLOROthiazide 25 mg or al tablet (15 sources) Thiazide Diuretic Start: 05-12-2017 End: 12-03-2018 Start: 10-27-2016 take 1 tablet by davin th once daily HYDROCHLOROTHIAZIDE 25 MG TABS One tablet by mouth daily HYDROCHLOROTHIAZIDE [id number] Laron Bacon MD sodium hypochlorite 2.5 mg/m l topical solution (8 sources) Start: 07-20-2024 End: 09-02-2024 3 ml insulin glargine 100 un t/ml pen injector (20 sources) Insulin Analog Start: 10-07-2023 End: 04-24-2024 Start: 09-07-2023 Lantus Solosta r Pen 100 units/mL 3 mL Pen Dose : 25 unit(s) =, Subcutaneous, acSupper, # 3 mL, 0 Refill(s) Start Date: 09/07/23 Status: Ordered Start: 12-07-2022 End: 05-27-2023 insulin glargine (LANTUS WAYNE OSTAR U-100 INSULIN) 100 unit/mL (3 mL) Indications: 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, without long-term current use of insulin (HCC) Inject 20 Units subcutaneously once daily. 18 mL 1 12/07/2022 05/27/2023 Discontinued Start: 06-07-2022 End: 06-05-2023 insulin glargine (LANTUS WAYNE OSTAR U-100 INSULIN) 100 unit/mL (3 mL) Indications: 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, without long-term current use of insulin (HCC) Inject 20 Units subcutaneously once daily. 18 mL 1 12/07/2022 06/05/2023 Active Start: 02-08-2022 End: 06-07-2022 insulin glargine (LANTUS WAYNE OSTAR U-100 INSULIN) 100 unit/mL (3 mL) Indications: 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 edema, without long-term current use of insulin (HCC) Inject 18 Units subcutaneously once daily. 5 Each 0 02/08/2022 06/07/2022 Discontinued Start: 09-02-2021 End: 08-07-2022 insulin glargine (LANTUS WAYNE OSTAR U-100 INSULIN) 100 unit/mL (3 mL) Indications: 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 edema, without long-term current use of insulin (HCC) Inject 18 Units subcutaneously once daily. 5 Each 0 02/08/2022 08/07/2022 Active Start: 03-04-2021 End: 09-02-2021 insulin glargine (LANTUS WAYNE OSTAR U-100 INSULIN) 100 unit/mL (3 mL) Indications: 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 edema, without long-term current use of insulin (HCC) Inject 22 Units subcutaneously once daily. 5 Pen 2 03/04/2021 09/02/2021 Discontinued Start: 02-18-2021 Insulin Glargi ne Active 22 UNIT SC WITH DINNER February 18, 2021 9:14am Start: 04-18-2020 End: 06-13-2024 Start: 04-18-2020 End: 09-24-2024 Start: 04-18-2020 End: 10-03-2024 Start: 04-18-2020 End: 01-06-2025 Start: 04-18-2020 End: 02-18-2021 Insulin Glargine Discontinue d 26 UNITS SC WITH DINNER April 18, 2020 1:00am February 18, 2021 9:15am Comment on above: Inject 18 Units subc utaneously once daily. Inject 20 Units subc utaneously once daily. Inject 25 Units subc utaneously once daily. 3 ml insulin lispro 100 unt/ml pen injector (20 sources) Insulin Analog Start: 4 End: 5 krill oil (5 sources) Start: 7 take 1 tablet by mouth once daily HM MEGAKRILL CAPS One tablet by mouth daily KRILL OIL CAPS [id number] Laron Bacon MD 3 ml liraglutide 6 mg/ml pen injector (12 sources) GLP-1 Receptor Agonist Start: 7 End: 8 Start: 05-12-2017 End: 05-04-2018 Liraglutide Discontinued SC 6 60 May 12, 2017 1:00am May 04, 2018 10:45am Start: 10-26-2016 NICOLE aldana LIRAGLUTIDE SOLHaim [id number] Bernarda Kraus RN lisinopril 40 mg oral tablet (12 sources) Angiotensin Converting Enzyme Inhibitor Start: 05-12-2017 End: 05-02-2020 Start: 10-26-2016 take 1 tablet by davin th once daily ZESTRIL 40 MG TABS One tablet by mouth daily LISINOPRIL [id number] Bernarda Kraus RN methylsulfonylmethane (5 sources) Start: 10-27-2016 take 1 tablet by mouth once daily [facility] MSM CAPS One tablet by mouth daily METHYLSULFONYLMETHANE CAPS [id number] Laron Bacon MD metoprolol tartrate 25 mg oral tablet (5 sources) beta-Adrenergi c Prakash Start: 04-18-2020 End: 05-02-2020 miconazole nitrate 20 mg/ml topical cream (4 sources) Azole Antifungal Start: 04-24-2024 End: 05-10-2024 nystatin [id number] unt/ml topical cream (4 sources) Polyene Antifungal Start: 05-22-2024 End: 08-28-2024 oxyCODONE hydrochloride 5 mg oral tablet (20 sources) Opioid Agonist Start: 07-10-2024 End: 09-21-2024 0.25 mg, 0.5 mg dose 1.5 ml semaglutide 1.34 mg/ml pen injector (20 sources) Start: 01-04-2023 End: 07-12-2024 semaglutide (OZEMPIC) 0.25 mg or 0.5 mg(2 mg/1.5 mL) pen Indications: 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, without long-term current use of insulin (HCC) Inject 0.5 mg subcutaneously one time a week. 1 Each 07/13/2023 01/06/2024 Discontinued (Discontinued by Patient) Start: 06-07-2022 End: 02-11-2023 inject 0.25 mg by subcutaneous injection every week, then inject 0.5 mg by subcutaneous injection every week semaglutide (OZEMPIC) 0.25 mg or 0.5 mg(2 mg/1.5 mL) pen Indications: 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, without long-term current use of insulin (HCC) Inject 0.25 mg subcutaneously one time a week for 28 days, THEN 0.5 mg one time a week. 4 mL 0 12/07/2022 01/04/2023 Discontinued Comment on above: Inject 0.25 mg subcu taneously one time a week for 28 days, THEN 0.5 mg one time a week. Inject 0.5 mg subcut aneously one time a week for 14 days. Inject 0.5 mg subcut aneously one time a week. vancomycin 750 mg injection (8 sources) Glycopeptide Antibacterial Start: 07-19-2024 End: 09-02-2024 vitamin b12 1 mg oral tablet (8 sources) Vitamin B12 Start: 11-18-2021 End: 06-04-2024 Problems Active Problems Problem Classification Problem Date Documented Date Episodic/Chronic Acute and unspecified renal failure (5 sources) [id number] renal failure; Translations: [Acute kidney failure, unspecified] 06-23-2020 Episodic Cardiac dysrhythmias (9 sources) Paroxysmal atrial fibrillation; Translations: [Paroxysmal atrial fibrillation] 07-15-2024 Chronic Cardiac dysrhythmias (6 sources) Sinus bradycardia; Translations: [Bradycardia, unspecified] Episodic Chronic kidney disease (20 sources) Chronic kidney disease stage 3; Translations: [Chronic kidney disease (CKD), stage III (moderate)] Onset: 7 Resolved: 3 10-26-2016 Chronic Chronic ulcer of skin (17 sources) Non-pressure chronic ulcer of other part of right foot with necrosis of bone; Translations: [Non-pressure chronic ulcer of other part of right foot with necrosis of bone] Onset: 4 05-18-2024 Chronic Complication of device; implant or graft (7 sources) Dialysis finding; Translations: [Other specified complication of vascular prosthetic devices, implants and grafts, initial encounter] Chronic Complication of device; implant or graft (5 sources) Malfunction of peritoneal dialysis catheter; Translations: [Breakdown (mechanical) of intraperitoneal dialysis catheter, initial encounter] 08-28-2020 Episodic Conduction disorders (20 sources) Mobitz type I incomplete atrioventricular block; Translations: [Left bundle branch block] Onset: 7 10-26-2016 Chronic Congestive heart failure; nonhypertensive (20 sources) Chronic diastolic heart failure; Translations: [Chronic diastolic (congestive) heart failure] Onset: 0 03-04-2021 Chronic Deficiency and other anemia (8 sources) Anemia of chronic disease; Translations: [Anemia in other chronic diseases classified elsewhere] 08-30-2024 Chronic Deficiency and other anemia (2 sources) Anemia in other chronic diseases classified elsewhere; Translations: [Anemia in other chronic diseases classified elsewhere] Onset: 5 Chronic Diabetes mellitus with complications (20 sources) Type 2 diabetes mellitus; Translations: [Type 2 diabetes mellitus with mild nonproliferative diabetic retinopathy with macular edema, bilateral] Onset: 6 Resolved: 6 02-28-2020 Chronic Diabetes mellitus without complication (2 sources) Type 2 diabetes mellitus without complications; Translations: [Type 2 diabetes mellitus without complications] Onset: 5 Chronic Disorders of lipid metabolism (20 sources) Hyperlipidemia; Translations: [Mixed hyperlipidemia] Onset: 6 10-26-2016 Chronic Essential hypertension (20 sources) Hypertensive disorder; Translations: [Essential hypertension] Onset: 5 10-26-2016 Chronic Gangrene (9 sources) Atherosclerosis of [place] arteries of extremities with gangrene, right leg; Translations: [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] Onset: 5 09-12-2024 Chronic Hypertension with complications and secondary hypertension (20 sources) Hypertensive heart AND chronic kidney disease with congestive heart failure; Translations: [Hypertensive heart and chronic kidney disease with heart failure and with stage 5 chronic kidney disease, or end stage renal disease] Onset: 3 Chronic Immunizations and screening for infectious disease (1 source) Vaccination needed; Translations: [Encounter for immunization] Episodic Infective arthritis and osteomyelitis (except that caused by tuberculosis or sexually transmitted disease) (20 sources) Acute osteomyelitis of ankle and/or foot; Translations: [Other acute osteomyelitis, right ankle and foot] Onset: 5 05-04-2024 Chronic Open wounds of extremities (20 sources) Amputated right lower limb below knee; Translations: [Complete traumatic amputation at level between knee and ankle, right lower leg, initial encounter] Onset: 5 09-03-2024 Chronic Open wounds of extremities (20 sources) Open wound of right foot; Translations: [Unspecified open wound, right foot, initial encounter] Onset: 5 07-11-2024 Episodic Other acquired deformities (1 source) Deformity of foot; Translations: [Unspecified acquired deformity of right lower leg] 03-04-2021 Episodic Other aftercare (4 sources) Surgical follow-up; Translations: [Encounter for surgical aftercare following surgery on the circulatory system] 06-20-2024 Episodic Other aftercare (2 sources) Encounter for orthopedic aftercare following surgical amputation; Translations: [Encounter for orthopedic aftercare following surgical amputation] Onset: Episodic Other aftercare (1 source) Encounter for change or removal of nonsurgical wound dressing; Translations: [Encounter for change or removal of nonsurgical wound dressing] Onset: Episodic Other bone disease and musculoskeletal deformities (7 sources) History of amputation of right foot; Translations: [Acquired absence of right foot] 06-20-2024 Chronic Other bone disease and musculoskeletal deformities (2 sources) Acquired absence of right leg below knee; 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] Onset: Chronic Other bone disease and musculoskeletal deformities (1 source) Acquired absence of right great toe; Translations: [Acquired absence of right great toe] Onset: Chronic Other circulatory disease (4 sources) Arteriovenous fistula; Translations: [Arteriovenous fistula, acquired] 10-17-2024 Chronic Other circulatory disease (2 sources) Other specified peripheral vascular diseases; Translations: [Other specified peripheral vascular diseases] Onset: Chronic Other circulatory disease (12 sources) Electrocardiogram abnormal; Translations: [Abnormal electrocardiogram [ECG] [EKG]] Onset: 7 10-26-2016 Episodic Other circulatory disease (4 sources) Ischemic toe; Translations: [Other disorder of circulatory system] 05-18-2024 Episodic Other circulatory disease (2 sources) Other disorder of circulatory system; Translations: [Other disorder of circulatory system] Onset: 5 Episodic Other connective tissue disease (5 sources) Swelling of bilateral lower limbs; Translations: [Other specified soft tissue disorders] 04-14-2024 Episodic Other connective tissue disease (1 source) Pain in left foot; Translations: [Pain in left foot] 06-27-2023 Episodic Other connective tissue disease (1 source) Pain in right foot; Translations: [Pain in right foot] 06-27-2023 Episodic Other connective tissue disease (8 sources) Foot pain; Translations: [Pain in right foot] 07-28-2024 Episodic Other connective tissue disease (2 sources) Muscle wasting and atrophy, not elsewhere classified, right lower leg; Translations: [Muscle wasting and atrophy, not elsewhere classified, right lower leg] Onset: 5 Episodic Other diseases of kidney and ureters (20 sources) Hyperparathyroidism due to renal insufficiency; 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] Onset: 3 02-21-2023 Chronic Other injuries and conditions due to external causes (1 source) At high risk for fall; Translations: [History of falling] 12-06-2022 Episodic Other lower respiratory disease (5 sources) Dyspnea; Translations: [Dyspnea, unspecified] 06-23-2020 Episodic Other nervous system disorders (6 sources) Acute postoperative pain; Translations: [Other acute postprocedural pain] 06-06-2024 Episodic Other nutritional; endocrine; and metabolic disorders (7 sources) Obesity; Translations: [Obesity, unspecified] Onset: 7 10-26-2016 Chronic Peripheral and visceral atherosclerosis (20 sources) Peripheral vascular disease; Translations: [Peripheral vascular disease, unspecified] Onset: 5 08-09-2024 Chronic Residual codes; unclassified (20 sources) Edema of lower extremity; Translations: [Localized edema] Onset: 0 Resolved: 0 07-25-2017 Episodic Residual codes; unclassified (5 sources) H/O: major vascular surgery; Translations: [Other specified postprocedural states] 12-26-2020 Episodic Residual codes; unclassified (2 sources) Altered mental status, unspecified; Translations: [Altered mental status, unspecified] Onset: Episodic Skin and subcutaneous tissue infections (20 sources) Infection of foot; Translations: [Local infection of the skin and subcutaneous tissue, unspecified] Onset: 5 04-14-2024 Episodic Unclassified (4 sources) Long-term drug therapy; Translations: [Other predatory animal exterminator (current) drug therapy] Onset: 7 10-26-2016 Past or Other Problems Problem Classification Problem Date Documented Date Episodic/Chronic Bacterial infection; unspecified site (10 sources) Bacteremia due to Methicillin resistant Staphylococcus aureus; Translations: [Bacteremia] Onset: 07-22-2024 07-16-2024 Episodic Conditions associated with dizziness or vertigo (5 sources) Dizziness; Translations: [Dizziness and giddiness] Onset: 07-19-2024 07-15-2024 Episodic Fluid and electrolyte disorders (18 sources) Hyperkalemia; Translations: [Hyperkalemia] Onset: 07-18-2024 07-11-2024 Episodic Genitourinary symptoms and ill-defined conditions (20 sources) Nocturia; Translations: [Nocturia] Onset: 06-21-2005 06-21-2005 Episodic Malaise and fatigue (1 source) Weakness; Translations: [Weakness] Onset: 07-17-2024 Episodic Melanomas of skin (13 sources) Lentigo maligna; 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, unspecified] Onset: 09-26-2014 Resolved: 02-28-2020 02-28-2020 Chronic Mycoses (20 sources) Onychomycosis; Translations: [Tinea unguium] Onset: 09-22-2011 Resolved: 11-18-2016 09-22-2011 Episodic Other aftercare (3 sources) Other predatory animal exterminator (current) drug therapy; Translations: [Other assisted (current) drug therapy] Onset: 10-26-2016 10-26-2016 Episodic Other aftercare (1 source) terminal gauger (current) use of insulin; Translations: [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 edema, with long-term current use of insulin (HCC)] Onset: 02-28-2020 Episodic Other connective tissue disease (1 source) Pain in right foot; Translations: [Pain in right foot] Onset: 07-22-2024 Episodic Residual codes; unclassified (20 sources) Noncompliance with dietary regimen; Translations: [Patient's noncompliance with dietary regimen] Onset: 07-07-2015 07-07-2015 Episodic Residual codes; unclassified (13 sources) Noncompliance with therapeutic regimen; Translations: [Noncompliance with diet and medication regimen] Onset: 04-17-2013 Resolved: 11-18-2016 11-18-2016 Episodic Residual codes; unclassified (1 source) Localized edema; Translations: [Lower extremity edema] Onset: 07-25-2017 Episodic Results Test Name Value Interpretation Reference Range Facility Cardiology Visit Reporton Cardiology Visit Report Normal [facility] Surgery Visit Reporton 10-17 Surgery Visit Report Normal [facility] Absolute lymphocyte countOrd ered By: Nando Wiggins on 10-16-2024 Lymphocytes Auto (Unsp spec) [#/Vol] 1.40 10*3/uL 0.83-4.51 [facility] Anion gap in Serum or Plasma Ordered By: Nando Wiggins on 10-16-2024 Anion gap [Moles/Vol] 14 mmol/L 5-15 [facility] Automated lymphocyte count a s percentage of total leukocytesOrdered By: Nando Wiggins on 10-16-2024 Lymphocytes/100 WBC Auto (Unsp spec) 15.9 % Low 19-41 [facility] BUN/creatinine ratioOrdered By: Nando Wiggins on 10-16-2024 Urea nitrogen/Creatinine [Mass ratio] 13.8 mg/mg 10-20 [facility] Basophil percentageOrdered B y: Nando Wiggins on 10-16-2024 Basophils/100 WBC (Bld) 0.7 % 0-1 [facility] Carbon dioxide, total [Moles /volume] in Central venous bloodOrdered By: Nando Wiggins on 10-16-2024 CO2 [Moles/Vol] 27.7 mmol/L 21.0-32.0 [facility] Chloride assayOrdered By: Kathie Wiggins on 10-16-2024 Chloride [Moles/Vol] 93 mmol/L Low 98-108 [facility] Eosinophil percentageOrdered By: Nando Wiggins on 10-16-2024 Eosinophils/100 WBC (Bld) 2.7 % 0-5 [facility] Erythrocyte distribution wid th ratioOrdered By: Nando Wiggins on 10-16-2024 Erythrocyte distribution width (RBC) [Ratio] 15.8 % High 11.6-14.6 [facility] Erythrocyte distribution wid th standard deviationOrdered By: Nando Wiggins on 10-16-2024 Erythrocyte distribution width (RBC) [Ratio] 52.2 fl High 35.1-43.9 [facility] Glomerular filtration rate ( GFR) estimation/1.73 sq m using serum, plasma, or whole bOrdered By: Nando Wiggins on 10-16-2024 GFR/1.73 sq M.predicted among non-blacks MDRD (S/P/Bld) [Vol rate/Area] 9 mL/min/{1.73_m2} Low >60 [facility] Hematocrit Auto (Bld) [Volum e fraction]Ordered By: Nando Wiggins on 10-16-2024 Hematocrit (Bld) [Volume fraction] 34.0 % Low 40-54 [facility] Hemoglobin measurementOrdere d By: Nando Wiggins on 10-16-2024 Hemoglobin (Bld) [Mass/Vol] 10.4 g/dL Low 13.0-16.5 [facility] Immature granulocytes/100 WB C Auto (Bld)Ordered By: Nando Wiggins on 10-16-2024 Immature granulocytes/100 WBC (Bld) 0.300 % 0.0-0.9 [facility] MCV (mean corpuscular volume ) determinationOrdered By: Nando Wiggins on 10-16-2024 MCV (RBC) [Entitic vol] 90.2 fL 80-94 [facility] Mean corpuscular hemoglobin (MCH) determinationOrdered By: biancaissuewolf Wiggins on 10-16-2024 MCH (RBC) [Entitic mass] 27.6 pg 27.0-32.0 [facility] Monocyte percentageOrdered B y: Nando Wiggins on 10-16-2024 Monocytes/100 WBC (Bld) 9.3 % 0-10 [facility] Neutrophil percentageOrdered By: Nando Wiggins on 10-16-2024 Neutrophils/100 WBC (Bld) 71.1 % High 47-70 [facility] Platelet countOrdered By: Kathie Wiggins on 10-16-2024 Platelets (Bld) [#/Vol] 152 10*3/uL 150-450 [facility] Potassium measurement (mass/ volume)Ordered By: Nando Wiggins on 10-16-2024 Potassium (Unsp spec) [Mass/Vol] 4.6 mmol/L 3.3-5.1 [facility] RBC Auto (Bld) [#/Vol]Ordere d By: Nando Wiggins on 10-16-2024 RBC (Bld) [#/Vol] 3.77 10*6/uL Low 4.6-6.2 [facility] Serum creatinine measurement (mass/volume)Ordered By: Nando Wiggins on 10-16-2024 Creatinine [Mass/Vol] 5.65 mg/dL High 0.70-1.20 [facility] Serum glucose measurement (m ass/volume)Ordered By: Nando Wiggins on 10-16-2024 Glucose [Mass/Vol] 169 mg/dL High 70-99 [facility] Serum or plasma calcium lilli urement (mass/volume)Ordered By: Nando Wiggins on 10-16-2024 Calcium [Mass/Vol] 8.9 mg/dL 7.6-11.0 [facility] Serum or plasma urea nitroge n measurement (mass/volume)Ordered By: Nando Wiggins on 10-16-2024 Urea nitrogen [Mass/Vol] 78 mg/dL High 4-19 [facility] Sodium levelOrdered By: Deb Wiggins on 10-16-2024 Sodium [Moles/Vol] 135 mmol/L 133-145 [facility] White blood cell (WBC) count Ordered By: Nando Wiggins on 10-16-2024 WBC (Bld) [#/Vol] 8.8 10*3/uL 4.4-11.0 [facility] Absolute lymphocyte countOrd ered By: Nando Wiggins on 10-08-2024 Lymphocytes Auto (Unsp spec) [#/Vol] 1.87 10*3/uL 0.83-4.51 [facility] Anion gap in Serum or Plasma Ordered By: Nando Wiggins on 10-08-2024 Anion gap [Moles/Vol] 13 mmol/L 5-15 [facility] Automated lymphocyte count a s percentage of total leukocytesOrdered By: Nando Wiggins on 10-08-2024 Lymphocytes/100 WBC Auto (Unsp spec) 27.5 % 19- [facility] BUN/creatinine ratioOrdered By: biancaissuewolf Wiggins on 10-08-2024 Urea nitrogen/Creatinine [Mass ratio] 13.2 mg/mg 10- [facility] Basophil percentageOrdered B y: Nando Wiggins on 10-08-2024 Basophils/100 WBC (Bld) 1.0 % 0-1 [facility] Carbon dioxide, total [Moles /volume] in Central venous bloodOrdered By: Nando Wiggins on 10-08-2024 CO2 [Moles/Vol] 26.7 mmol/L 21.0-32.0 [facility] Chloride assayOrdered By: Kathie Wiggins on 10-08-2024 Chloride [Moles/Vol] 95 mmol/L Low 98-108 [facility] Eosinophil percentageOrdered By: fili Wiggins on 10-08-2024 Eosinophils/100 WBC (Bld) 2.9 % 0-5 [facility] Erythrocyte distribution wid th ratioOrdered By: Nando Wiggins on 10-08-2024 Erythrocyte distribution width (RBC) [Ratio] 16.0 % High 11.6-14.6 [facility] Erythrocyte distribution wid th standard deviationOrdered By: Nando Wiggins on 10-08-2024 Erythrocyte distribution width (RBC) [Ratio] 54.2 fl High 35.1-43.9 [facility] Glomerular filtration rate ( GFR) estimation/1.73 sq m using serum, plasma, or whole bOrdered By: Nando Wiggins on 10-08-2024 GFR/1.73 sq M.predicted among non-blacks MDRD (S/P/Bld) [Vol rate/Area] 12 mL/min/{1.73_m2} Low >60 [facility] Hematocrit Auto (Bld) [Volum e fraction]Ordered By: Nando Wiggins on 10-08-2024 Hematocrit (Bld) [Volume fraction] 35.5 % Low 40-54 [facility] Hemoglobin measurementOrdere d By: Nando Wiggins on 10-08-2024 Hemoglobin (Bld) [Mass/Vol] 10.7 g/dL Low 13.0-16.5 [facility] Immature granulocytes/100 WB C Auto (Bld)Ordered By: Nando Wiggins on 10-08-2024 Immature granulocytes/100 WBC (Bld) 0.400 % 0.0-0.9 [facility] MCV (mean corpuscular volume ) determinationOrdered By: Nando Wiggins on 10-08-2024 MCV (RBC) [Entitic vol] 91.0 fL 80-94 [facility] Mean corpuscular hemoglobin (MCH) determinationOrdered By: biancaissuewolf Wiggins on 10-08-2024 MCH (RBC) [Entitic mass] 27.4 pg 27.0-32.0 [facility] Monocyte percentageOrdered B y: Nando Wiggins on 10-08-2024 Monocytes/100 WBC (Bld) 8.2 % 0-10 [facility] Neutrophil percentageOrdered By: biancaissuewolf Wiggins on 10-08-2024 Neutrophils/100 WBC (Bld) 60.0 % 47-70 [facility] Platelet countOrdered By: Kathie Wiggins on 10-08-2024 Platelets (Bld) [#/Vol] 164 10*3/uL 150-450 [facility] Potassium measurement (mass/ volume)Ordered By: Nando Wiggins on 10-08-2024 Potassium (Unsp spec) [Mass/Vol] 4.1 mmol/L 3.3-5.1 [facility] RBC Auto (Bld) [#/Vol]Ordere d By: Nando Wiggins on 10-08-2024 RBC (Bld) [#/Vol] 3.90 10*6/uL Low 4.6-6.2 [facility] Serum creatinine measurement (mass/volume)Ordered By: Nando Wiggins on 10-08-2024 Creatinine [Mass/Vol] 4.42 mg/dL High 0.70-1.20 [facility] Serum glucose measurement (m ass/volume)Ordered By: Nando Wiggins on 10-08-2024 Glucose [Mass/Vol] 177 mg/dL High 70-99 [facility] Serum or plasma calcium lilli urement (mass/volume)Ordered By: Nando Wiggins on 10-08-2024 Calcium [Mass/Vol] 9.2 mg/dL 7.6-11.0 [facility] Serum or plasma urea nitroge n measurement (mass/volume)Ordered By: Nando Wiggins on 10-08-2024 Urea nitrogen [Mass/Vol] 59 mg/dL High 4-19 [facility] Sodium levelOrdered By: Deb Wiggins on 10-08-2024 Sodium [Moles/Vol] 135 mmol/L 133-145 [facility] White blood cell (WBC) count Ordered By: Nando Wiggins on 10-08-2024 WBC (Bld) [#/Vol] 6.8 10*3/uL 4.4-11.0 [facility] Surgery Visit Reporton 10-03 Surgery Visit Report Normal [facility] Absolute lymphocyte countOrd ered By: Nando Wiggins on 10-02-2024 Lymphocytes Auto (Unsp spec) [#/Vol] 1.76 10*3/uL 0.83-4.51 [facility] Anion gap in Serum or Plasma Ordered By: Nando Wiggins on 10-02-2024 Anion gap [Moles/Vol] 14 mmol/L 5-15 [facility] Automated lymphocyte count a s percentage of total leukocytesOrdered By: Nando Wiggins on 10-02-2024 Lymphocytes/100 WBC Auto (Unsp spec) 25.6 % 19-41 [facility] BUN/creatinine ratioOrdered By: Nando Wiggins on 10-02-2024 Urea nitrogen/Creatinine [Mass ratio] 17.4 mg/mg 10-20 [facility] Basophil percentageOrdered B y: Nando Wiggins on 10-02-2024 Basophils/100 WBC (Bld) 1.0 % 0-1 [facility] Carbon dioxide, total [Moles /volume] in Central venous bloodOrdered By: Nando Meekcheko on 10-02-2024 CO2 [Moles/Vol] 26.5 mmol/L 21.0-32.0 [facility] Chloride assayOrdered By: fili Meeklakshminereida on 10-02-2024 Chloride [Moles/Vol] 90 mmol/L Low 98-108 [facility] Eosinophil percentageOrdered By: Nando Meekcheko on 10-02-2024 Eosinophils/100 WBC (Bld) 2.5 % 0-5 [facility] Erythrocyte distribution wid th ratioOrdered By: Nando Meeklakshminereida on 10-02-2024 Erythrocyte distribution width (RBC) [Ratio] 16.2 % High 11.6-14.6 [facility] Erythrocyte distribution wid th standard deviationOrdered By: Nando Meekcheko on 10-02-2024 Erythrocyte distribution width (RBC) [Ratio] 54.6 fl High 35.1-43.9 [facility] Glomerular filtration rate ( GFR) estimation/1.73 sq m using serum, plasma, or whole bOrdered By: Nando Meekcheko on 10-02-2024 GFR/1.73 sq M.predicted among non-blacks MDRD (S/P/Bld) [Vol rate/Area] 10 mL/min/{1.73_m2} Low >60 [facility] Hematocrit Auto (Bld) [Volum e fraction]Ordered By: Nando Wiggins on 10-02-2024 Hematocrit (Bld) [Volume fraction] 35.1 % Low 40-54 [facility] Hemoglobin measurementOrdere d By: Debsrinathwolf Edenlakshminereida on 10-02-2024 Hemoglobin (Bld) [Mass/Vol] 10.5 g/dL Low 13.0-16.5 [facility] Immature granulocytes/100 WB C Auto (Bld)Ordered By: Nando Wiggins on 10-02-2024 Immature granulocytes/100 WBC (Bld) 0.300 % 0.0-0.9 [facility] MCV (mean corpuscular volume ) determinationOrdered By: Nando Wiggins on 10-02-2024 MCV (RBC) [Entitic vol] 91.4 fL 80-94 [facility] Mean corpuscular hemoglobin (MCH) determinationOrdered By: Nando Wiggins on 10-02-2024 MCH (RBC) [Entitic mass] 27.3 pg 27.0-32.0 [facility] Monocyte percentageOrdered B y: Nando Wiggins on 10-02-2024 Monocytes/100 WBC (Bld) 10.5 % High 0-10 [facility] Neutrophil percentageOrdered By: Nando Wiggins on 10-02-2024 Neutrophils/100 WBC (Bld) 60.1 % 47-70 [facility] Platelet countOrdered By: Kathie biancalilian Wiggins on 10-02-2024 Platelets (Bld) [#/Vol] 158 10*3/uL 150-450 [facility] Potassium measurement (mass/ volume)Ordered By: Nando Wiggins on 10-02-2024 Potassium (Unsp spec) [Mass/Vol] 4.3 mmol/L 3.3-5.1 [facility] RBC Auto (Bld) [#/Vol]Ordere d By: Nando Wiggins on 10-02-2024 RBC (Bld) [#/Vol] 3.84 10*6/uL Low 4.6-6.2 [facility] Serum creatinine measurement (mass/volume)Ordered By: Nando Wiggins on 10-02-2024 Creatinine [Mass/Vol] 5.22 mg/dL High 0.70-1.20 [facility] Serum glucose measurement (m ass/volume)Ordered By: Nando Wiggins on 10-02-2024 Glucose [Mass/Vol] 346 mg/dL High 70-99 [facility] Serum or plasma calcium lilli urement (mass/volume)Ordered By: Nando Wiggins on 10-02-2024 Calcium [Mass/Vol] 9.0 mg/dL 7.6-11.0 [facility] Serum or plasma urea nitroge n measurement (mass/volume)Ordered By: Nando Wiggins on 10-02-2024 Urea nitrogen [Mass/Vol] 91 mg/dL High 4-19 [facility] Sodium levelOrdered By: Deb rosejeremie Rosalie on 10-02-2024 Sodium [Moles/Vol] 131 mmol/L Low 133-145 [facility] White blood cell (WBC) count Ordered By: Nando Wiggins on 10-02-2024 WBC (Bld) [#/Vol] 6.9 10*3/uL 4.4-11.0 [facility] Absolute lymphocyte countOrd ered By: Nando Wiggins on 09-24-2024 Lymphocytes Auto (Unsp spec) [#/Vol] 1.75 10*3/uL 0.83-4.51 [facility] Anion gap in Serum or Plasma Ordered By: Nando Wiggins on 09-24-2024 Anion gap [Moles/Vol] 14 mmol/L 5-15 [facility] Automated lymphocyte count a s percentage of total leukocytesOrdered By: Nando Wiggins on 09-24-2024 Lymphocytes/100 WBC Auto (Unsp spec) 25.8 % 19-41 [facility] BUN/creatinine ratioOrdered By: Nando Wiggins on 09-24-2024 Urea nitrogen/Creatinine [Mass ratio] 12.6 mg/mg 10-20 [facility] Basophil percentageOrdered B y: Nando Wiggins on 09-24-2024 Basophils/100 WBC (Bld) 0.7 % 0-1 [facility] Carbon dioxide, total [Moles /volume] in Central venous bloodOrdered By: Nando Wiggins on 09-24-2024 CO2 [Moles/Vol] 26.2 mmol/L 21.0-32.0 [facility] Chloride assayOrdered By: Kathie Wiggins on 09-24-2024 Chloride [Moles/Vol] 93 mmol/L Low 98-108 [facility] Eosinophil percentageOrdered By: Nando Wiggins on 09-24-2024 Eosinophils/100 WBC (Bld) 2.7 % 0-5 [facility] Erythrocyte distribution wid th ratioOrdered By: Nando Wiggins on 09-24-2024 Erythrocyte distribution width (RBC) [Ratio] 17.2 % High 11.6-14.6 [facility] Erythrocyte distribution wid th standard deviationOrdered By: fili Wiggins on 09-24-2024 Erythrocyte distribution width (RBC) [Ratio] 58.0 fl High 35.1-43.9 [facility] Glomerular filtration rate ( GFR) estimation/1.73 sq m using serum, plasma, or whole bOrdered By: biancaissuewolf Wiggins on 09-24-2024 GFR/1.73 sq M.predicted among non-blacks MDRD (S/P/Bld) [Vol rate/Area] 13 mL/min/{1.73_m2} Low >60 [facility] Hematocrit Auto (Bld) [Volum e fraction]Ordered By: Nando Wiggins on 09-24-2024 Hematocrit (Bld) [Volume fraction] 34.6 % Low 40-54 [facility] Hemoglobin measurementOrdere d By: biancaissuewolf Wiggins on 09-24-2024 Hemoglobin (Bld) [Mass/Vol] 10.3 g/dL Low 13.0-16.5 [facility] Immature granulocytes/100 WB C Auto (Bld)Ordered By: Nando Wiggins on 09-24-2024 Immature granulocytes/100 WBC (Bld) 0.400 % 0.0-0.9 [facility] MCV (mean corpuscular volume ) determinationOrdered By: Nando Wiggins on 09-24-2024 MCV (RBC) [Entitic vol] 90.8 fL 80-94 [facility] Mean corpuscular hemoglobin (MCH) determinationOrdered By: biancaissuewolf Wiggins on 09-24-2024 MCH (RBC) [Entitic mass] 27.0 pg 27.0-32.0 [facility] Monocyte percentageOrdered B y: Nando Wiggins on 09-24-2024 Monocytes/100 WBC (Bld) 11.8 % High 0-10 [facility] Neutrophil percentageOrdered By: Nando Wiggins on 09-24-2024 Neutrophils/100 WBC (Bld) 58.6 % 47-70 [facility] Platelet countOrdered By: Kathie Wiggins on 09-24-2024 Platelets (Bld) [#/Vol] 209 10*3/uL 150-450 [facility] Potassium measurement (mass/ volume)Ordered By: Nando Wiggins on 09-24-2024 Potassium (Unsp spec) [Mass/Vol] 3.4 mmol/L 3.3-5.1 [facility] RBC Auto (Bld) [#/Vol]Ordere d By: Nando Wiggins on 09-24-2024 RBC (Bld) [#/Vol] 3.81 10*6/uL Low 4.6-6.2 [facility] Serum creatinine measurement (mass/volume)Ordered By: Nando Wiggins on 09-24-2024 Creatinine [Mass/Vol] 4.34 mg/dL High 0.70-1.20 [facility] Serum glucose measurement (m ass/volume)Ordered By: Nando Wiggins on 09-24-2024 Glucose [Mass/Vol] 241 mg/dL High 70-99 [facility] Serum or plasma calcium lilli urement (mass/volume)Ordered By: Nando Wiggins on 09-24-2024 Calcium [Mass/Vol] 9.0 mg/dL 7.6-11.0 [facility] Serum or plasma urea nitroge n measurement (mass/volume)Ordered By: Nando Wiggins on 09-24-2024 Urea nitrogen [Mass/Vol] 55 mg/dL High 4-19 [facility] Sodium levelOrdered By: Deb Wiggins on 09-24-2024 Sodium [Moles/Vol] 134 mmol/L 133-145 [facility] White blood cell (WBC) count Ordered By: Nando Wiggins on 09-24-2024 WBC (Bld) [#/Vol] 6.8 10*3/uL 4.4-11.0 [facility] Absolute lymphocyte countOrd ered By: Nando Wiggins on 09-17-2024 Lymphocytes Auto (Unsp spec) [#/Vol] 1.93 10*3/uL 0.83-4.51 [facility] Anion gap in Serum or Plasma Ordered By: Nando Wiggins on 09-17-2024 Anion gap [Moles/Vol] 13 mmol/L 5-15 [facility] Automated lymphocyte count a s percentage of total leukocytesOrdered By: Nando Wiggins on 09-17-2024 Lymphocytes/100 WBC Auto (Unsp spec) 18.7 % Low 19-41 [facility] BUN/creatinine ratioOrdered By: fili Wiggins on 09-17-2024 Urea nitrogen/Creatinine [Mass ratio] 12.3 mg/mg 10-20 [facility] Basophil percentageOrdered B y: Nando Wiggins on 09-17-2024 Basophils/100 WBC (Bld) 0.7 % 0-1 [facility] Carbon dioxide, total [Moles /volume] in Central venous bloodOrdered By: Nando Wiggins on 09-17-2024 CO2 [Moles/Vol] 27.5 mmol/L 21.0-32.0 [facility] Chloride assayOrdered By: Kathie Wiggins on 09-17-2024 Chloride [Moles/Vol] 93 mmol/L Low 98-108 [facility] Eosinophil percentageOrdered By: Nando Wiggins on 09-17-2024 Eosinophils/100 WBC (Bld) 2.3 % 0-5 [facility] Erythrocyte distribution wid th ratioOrdered By: Nando Wiggins on 09-17-2024 Erythrocyte distribution width (RBC) [Ratio] 17.6 % High 11.6-14.6 [facility] Erythrocyte distribution wid th standard deviationOrdered By: fili Wiggins on 09-17-2024 Erythrocyte distribution width (RBC) [Ratio] 59.3 fl High 35.1-43.9 [facility] Glomerular filtration rate ( GFR) estimation/1.73 sq m using serum, plasma, or whole bOrdered By: Nando Wiggins on 09-17-2024 GFR/1.73 sq M.predicted among non-blacks MDRD (S/P/Bld) [Vol rate/Area] 13 mL/min/{1.73_m2} Low >60 [facility] Hematocrit Auto (Bld) [Volum e fraction]Ordered By: Nando Edenlakshminereida on 09-17-2024 Hematocrit (Bld) [Volume fraction] 32.9 % Low 40-54 [facility] Hemoglobin measurementOrdere d By: Deblilian Meeklakshminereida on 09-17-2024 Hemoglobin (Bld) [Mass/Vol] 9.7 g/dL Low 13.0-16.5 [facility] Immature granulocytes/100 WB C Auto (Bld)Ordered By: Nando Edenlakshminereida on 09-17-2024 Immature granulocytes/100 WBC (Bld) 0.400 % 0.0-0.9 [facility] MCV (mean corpuscular volume ) determinationOrdered By: Nando Wiggins on 09-17-2024 MCV (RBC) [Entitic vol] 91.9 fL 80-94 [facility] Mean corpuscular hemoglobin (MCH) determinationOrdered By: biancaissuewolf Edenlakshminereida on 09-17-2024 MCH (RBC) [Entitic mass] 27.1 pg 27.0-32.0 [facility] Monocyte percentageOrdered B y: Nando Edenlakshminereida on 09-17-2024 Monocytes/100 WBC (Bld) 10.2 % High 0-10 [facility] Neutrophil percentageOrdered By: biancaissuewolf Wiggins on 09-17-2024 Neutrophils/100 WBC (Bld) 67.7 % 47-70 [facility] Platelet countOrdered By: Kathie fili Meeklakshminereida on 09-17-2024 Platelets (Bld) [#/Vol] 275 10*3/uL 150-450 [facility] Potassium measurement (mass/ volume)Ordered By: Kathiefili Edenlakshminereida 09-17-2024 Potassium (Unsp spec) [Mass/Vol] 3.3 mmol/L 3.3-5.1 [facility] RBC Auto (Bld) [#/Vol]Ordere d By: Debsrinathwolf Edenlakshminereida on 09-17-2024 RBC (Bld) [#/Vol] 3.58 10*6/uL Low 4.6-6.2 [facility] Serum creatinine measurement (mass/volume)Ordered By: Nando Wiggins on 09-17-2024 Creatinine [Mass/Vol] 4.25 mg/dL High 0.70-1.20 [facility] Serum glucose measurement (m ass/volume)Ordered By: Nando Wiggins on 09-17-2024 Glucose [Mass/Vol] 151 mg/dL High 70-99 [facility] Serum or plasma calcium lilli urement (mass/volume)Ordered By: Nando Wiggins on 09-17-2024 Calcium [Mass/Vol] 8.7 mg/dL 7.6-11.0 [facility] Serum or plasma urea nitroge n measurement (mass/volume)Ordered By: Nando Wiggins on 09-17-2024 Urea nitrogen [Mass/Vol] 52 mg/dL High 4-19 [facility] Sodium levelOrdered By: Deb Wiggins on 09-17-2024 Sodium [Moles/Vol] 134 mmol/L 133-145 [facility] White blood cell (WBC) count Ordered By: Nando Wiggins on 09-17-2024 WBC (Bld) [#/Vol] 10.3 10*3/uL 4.4-11.0 [facility] Bilirubin directOrdered By: Nando Wiggins on 09-12-2024 Bilirubin.direct [Mass/Vol] 0.11 mg/dL 0.00-0.30 [facility] Bilirubin, totalOrdered By: Nando Wiggins on 09-12-2024 Bilirubin [Mass/Vol] 0.25 mg/dL 0.00-1.30 [facility] Hemoglobin A1c percentageOrd ered By: Nando Wiggins on 09-12-2024 HbA1c (Bld) [Mass fraction] 6.1 % High <5.7 [facility] No Panel InformationOrdered By: Nando Wiggins on 09-12-2024 16 U/L <38 [facility] Serum globulin measurementOr dered By: Nando Wiggins on 09-12-2024 Globulin (S) [Mass/Vol] 3.3 g/dL 2.2-4.2 [facility] Serum or plasma alanine hawkins otransferase (ALT) measurementOrdered By: Nando Meekcheko on 09-12-2024 ALT [Catalytic activity/Vol] U/L <47 [facility] Serum or plasma albumin lilli urement (mass/volume)Ordered By: Nando Meekcheko on 09-12-2024 Albumin [Mass/Vol] 2.8 g/dL Low 3.4-4.8 [facility] Serum or plasma alkaline penelope sphatase measurementOrdered By: Nando Meekcheko on 09-12-2024 ALP [Catalytic activity/Vol] 55 U/L 40-129 [facility] Total proteinOrdered By: Sinan Wiggins on 09-12-2024 Protein [Mass/Vol] 6.0 g/dL 5.9-8.4 [facility] Vitamin B12 ser/plasOrdered By: Nando Meekcheko on 09-12-2024 Cobalamin (Vitamin B12) [Mass/Vol] 717 pg/mL 180-914 [facility] Absolute lymphocyte countOrd ered By: Nando Wiggins on 09-10-2024 Lymphocytes Auto (Unsp spec) [#/Vol] 1.78 10*3/uL 0.83-4.51 [facility] Anion gap in Serum or Plasma Ordered By: Nando Meekcheko on 09-10-2024 Anion gap [Moles/Vol] 12 mmol/L 5-15 [facility] Automated lymphocyte count a s percentage of total leukocytesOrdered By: Nando Meeklakshminereida on 09-10-2024 Lymphocytes/100 WBC Auto (Unsp spec) 21.1 % 19-41 [facility] BUN/creatinine ratioOrdered By: Nando Wiggins on 09-10-2024 Urea nitrogen/Creatinine [Mass ratio] 11.1 mg/mg 10-20 [facility] Basophil percentageOrdered B y: Nando Meekcheko on 09-10-2024 Basophils/100 WBC (Bld) 0.7 % 0-1 [facility] Carbon dioxide, total [Moles /volume] in Central venous bloodOrdered By: Nando Wiggins on 09-10-2024 CO2 [Moles/Vol] 27.1 mmol/L 21.0-32.0 [facility] Chloride assayOrdered By: Kathie Wiggins on 09-10-2024 Chloride [Moles/Vol] 94 mmol/L Low 98-108 [facility] Eosinophil percentageOrdered By: Nando Wiggins 09-10-2024 Eosinophils/100 WBC (Bld) 1.8 % 0-5 [facility] Erythrocyte distribution wid th ratioOrdered By: [facility] Hospital[facility] W[facility] on 09-10-2024 Erythrocyte distribution width (RBC) [Ratio] 17.3 % High 11.6-14.6 [facility] Erythrocyte distribution wid th standard deviationOrdered By: [facility] Hospital[facility] Wigg[facility] on 09-10-2024 Erythrocyte distribution width (RBC) [Ratio] 56.1 fl High 35.1-43.9 [facility] Glomerular filtration rate ( GFR) estimation/1.73 sq m using serum, plasma, or whole bOrdered By: fili Wiggins on 09-10-2024 GFR/1.73 sq M.predicted among non-blacks MDRD (S/P/Bld) [Vol rate/Area] 14 mL/min/{1.73_m2} Low >60 [facility] Hematocrit Auto (Bld) [Volum e fraction]Ordered By: fili Wiggins 09-10-2024 Hematocrit (Bld) [Volume fraction] 29.7 % Low 40-54 [facility] Hemoglobin measurementOrdere d By: Nando Wiggins 09-10-2024 Hemoglobin (Bld) [Mass/Vol] 9.1 g/dL Low 13.0-16.5 [facility] Immature granulocytes/100 WB C Auto (Bld)Ordered By: Nando Wiggins 09-10-2024 Immature granulocytes/100 WBC (Bld) 1.200 % High 0.0-0.9 [facility] MCV (mean corpuscular volume ) determinationOrdered By: Nando Wiggins 09-10-2024 MCV (RBC) [Entitic vol] 88.9 fL 80-94 [facility] Mean corpuscular hemoglobin (MCH) determinationOrdered By: Kathiefili Wiggins on 09-10-2024 MCH (RBC) [Entitic mass] 27.2 pg 27.0-32.0 [facility] Monocyte percentageOrdered B y: Debsrinathwolf Edenlakshminereida on 09-10-2024 Monocytes/100 WBC (Bld) 11.2 % High 0-10 [facility] Neutrophil percentageOrdered By: Kathiebiancasrinathwolf Edenlakshminereida on 09-10-2024 Neutrophils/100 WBC (Bld) 64.0 % 47-70 [facility] Platelet countOrdered By: Kathie rehanwolf Edenlakshminereida on 09-10-2024 Platelets (Bld) [#/Vol] 305 10*3/uL 150-450 [facility] Potassium measurement (mass/ volume)Ordered By: Nando Wiggins on 09-10-2024 Potassium (Unsp spec) [Mass/Vol] 3.9 mmol/L 3.3-5.1 [facility] RBC Auto (Bld) [#/Vol]Ordere d By: Deblilian Meeklakshminereida on 09-10-2024 RBC (Bld) [#/Vol] 3.34 10*6/uL Low 4.6-6.2 [facility] Serum creatinine measurement (mass/volume)Ordered By: Nando Wiggins on 09-10-2024 Creatinine [Mass/Vol] 3.98 mg/dL High 0.70-1.20 [facility] Serum glucose measurement (m ass/volume)Ordered By: Nando Wiggins on 09-10-2024 Glucose [Mass/Vol] 117 mg/dL High 70-99 [facility] Serum or plasma calcium lilli urement (mass/volume)Ordered By: Nando Wiggins on 09-10-2024 Calcium [Mass/Vol] 8.9 mg/dL 7.6-11.0 [facility] Serum or plasma urea nitroge n measurement (mass/volume)Ordered By: Nando Wiggins on 09-10-2024 Urea nitrogen [Mass/Vol] 44 mg/dL High 4-19 [facility] Sodium levelOrdered By: Deb Wiggins on 09-10-2024 Sodium [Moles/Vol] 133 mmol/L 133-145 [facility] White blood cell (WBC) count Ordered By: Nando Wiggins on 09-10-2024 WBC (Bld) [#/Vol] 8.5 10*3/uL 4.4-11.0 [facility] Bedside Glucoseon 09-04-2024 FINGERSTICK GLU 214 mg/dL High 74-106 [facility] Comment on above: Result Comment: FANG GEMENT OF PATIENT CARE PER NURSING PROTOCOL Performed By: #### L 501.080 ####[facility] [id number] [place], [address] FINGERSTICK GLU 151 mg/dL High 74-106 [facility] Comment on above: Result Comment: FANG GEMENT OF PATIENT CARE PER NURSING PROTOCOL Performed By: #### L 501.080 ####[facility] [id number] [place], [address] Gl[facility] measurement at [facility] deOrdered By: Earl White on 09-04-2024 Glucose [Mass/Vol] 214 mg/dL High 74-106 [facility] Absolute lymphocyte countOrd ered By: Salma Cervantes on 09-03-2024 Lymphocytes Auto (Unsp spec) [#/Vol] 1.48 10*3/uL 0.83-4.51 [facility] Automated lymphocyte count a s percentage of total leukocytesOrdered By: Salma Cervantes on 09-03-2024 Lymphocytes/100 WBC Auto (Unsp spec) 19.3 % 19-41 [facility] Basophil percentageOrdered B y: Salma Cervantes on 09-03-2024 Basophils/100 WBC (Bld) 0.5 % 0-1 [facility] Bedside Glucoseon 09-03-2024 FINGERSTICK GLU 219 mg/dL High 74-106 [facility] Comment on above: Result Comment: FANG GEMENT OF PATIENT CARE PER NURSING PROTOCOL Performed By: #### L 501.080 ####[facility] [address] [place], [address] FINGERSTICK GLU 212 mg/dL High 74-106 [facility] Comment on above: Result Comment: FANG GEMENT OF PATIENT CARE PER NURSING PROTOCOL Performed By: #### L 501.080 ####[facility] [address] [place], [address] FINGERSTICK GLU 172 mg/dL High 74-106 [facility] Comment on above: Result Comment: FANG GEMENT OF PATIENT CARE PER NURSING PROTOCOL Performed By: #### L 501.080 ####[facility] [address] [place], [address] FINGERSTICK GLU 175 mg/dL High 74-106 [facility] Comment on above: Result Comment: FANG GEMENT OF PATIENT CARE PER NURSING PROTOCOL Performed By: #### L 501.080 ####[facility] [address] [place], [address] CBC W/Diff, Automatedon - Absolute Lymph 1.48 X10 3/uL Normal 0.83-4.51 [facility] Comment on above: Performed By: #### L 100.0100 ####[facility] [address] [place], [address] Absolute Neut 5.2 X10 3/uL Normal 2.0-7.7 [facility] Comment on above: Performed By: #### L 100.0100 ####[facility] [address] [place], [address] Basophils/100 WBC (Bld) 0.5 % Normal 0-1 [facility] Comment on above: Performed By: #### L 100.0100 ####[facility] [address] [place], [address] Eosinophils/100 WBC (Bld) 2.7 % Normal 0-5 [facility] Comment on above: Performed By: #### L 100.0100 ####[facility] [address] [place], [address] Erythrocyte distribution width (RBC) [Ratio] 16.3 % High 11.6-14.6 [facility] Comment on above: Performed By: #### L 100.0100 ####[facility] [address] [place], [address] Hematocrit (Bld) [Volume fraction] 24.8 % Low 40-54 [facility] Comment on above: Performed By: #### L 100.0100 ####[facility] [address] [place], [address] Hemoglobin (Bld) [Mass/Vol] 7.4 g/dL Low 13.0-16.5 [facility] Comment on above: Performed By: #### L 100.0100 ####[facility] [address] [place], [address] IG% 0.500 Normal 0.0-0.9 [facility] Comment on above: Result Comment: IG% - Immature Granulocytes (promyelocytes, myelocytes andmetamyelocytes) > 1% indicates that a LEFT SHIFT is Present. Performed By: #### L 100.0100 ####[facility] [address] [place], [address] Lymphocytes/100 WBC (Bld) 19.3 % Normal 19-41 [facility] Comment on above: Performed By: #### L 100.0100 ####[facility] [address] [place], [address] MCH (RBC) [Entitic mass] 26.6 pg Low 27.0-32.0 [facility] Comment on above: Performed By: #### L 100.0100 ####[facility] [address] [place], [address] MCHC (RBC) [Mass/Vol] 29.8 g/dL Low 32-36 [facility] Comment on above: Performed By: #### L 100.0100 ####[facility] [address] [place], [address] MCV (RBC) [Entitic vol] 89.2 fL Normal 80-94 [facility] Comment on above: Performed By: #### L 100.0100 ####[facility] [address] [place], [address] Monocytes/100 WBC (Bld) 9.7 % Normal 0-10 [facility] Comment on above: Performed By: #### L 100.0100 ####[facility] [address] [place], [address] Neutrophils/100 WBC (Bld) 67.3 % Normal 47-70 [facility] Comment on above: Performed By: #### L 100.0100 ####[facility] [address] [place], [address] Nucleated RBC (Bld) [#/Vol] 0 10*3/uL Normal 0-5 [facility] Comment on above: Performed By: #### L 100.0100 ####[facility] [address] [place], [address] Platelet mean volume (Bld) [Entitic vol] 10.9 fL Normal 6.2-12.0 [facility] Comment on above: Performed By: #### L 100.0100 ####[facility] [address] [place], [address] Platelets (Bld) [#/Vol] 305 10*3/uL Normal 150-450 [facility] Comment on above: Performed By: #### L 100.0100 ####[facility] [address] [place], [address] RBC (Bld) [#/Vol] 2.78 10*6/uL Low 4.6-6.2 [facility] Comment on above: Performed By: #### L 100.0100 ####[facility] [address] [place], [address] RDW SD 53.4 fl High 35.1-43.9 [facility] Comment on above: Performed By: #### L 100.0100 ####[facility] [address] [place], [address] WBC (Bld) [#/Vol] 7.7 10*3/uL Normal 4.4-11.0 [facility] Comment on above: Performed By: #### L 100.0100 ####[facility] [address] [place], [address] Eosinophil percentageOrdered By: Salma Cervantes on 09-03-2024 Eosinophils/100 WBC (Bld) 2.7 % 0-5 [facility] Erythrocyte distribution wid th ratioOrdered By: Salma Cervantes on 09-03-2024 Erythrocyte distribution width (RBC) [Ratio] 16.3 % High 11.6-14.6 [facility] Erythrocyte distribution wid th standard deviationOrdered By: Salma Cervantes 09-03-2024 Erythrocyte distribution width (RBC) [Ratio] 53.4 fl High 35.1-43.9 [facility] Hematocrit Auto (Bld) [Volum e fraction]Ordered By: Salma Cervantes 09-03-2024 Hematocrit (Bld) [Volume fraction] 24.8 % Low 40-54 [facility] Hemoglobin measurementOrdere d By: Salma Cervantes on 09-03-2024 Hemoglobin (Bld) [Mass/Vol] 7.4 g/dL Low 13.0-16.5 [facility] Immature granulocytes/100 WB C Auto (Bld)Ordered By: Salma Cervantes 09-03-2024 Immature granulocytes/100 WBC (Bld) 0.500 % 0.0-0.9 [facility] MCV (mean corpuscular volume ) determinationOrdered By: Salma Cervantes 09-03-2024 MCV (RBC) [Entitic vol] 89.2 fL 80-94 [facility] Mean corpuscular hemoglobin (MCH) determinationOrdered By: Salma Billy on 09-03-2024 MCH (RBC) [Entitic mass] 26.6 pg Low 27.0-32.0 [facility] Monocyte percentageOrdered B y: Salma Billy on 09-03-2024 Monocytes/100 WBC (Bld) 9.7 % 0-10 [facility] Neutrophil percentageOrdered By: Salma Billy on 09-03-2024 Neutrophils/100 WBC (Bld) 67.3 % 47-70 [facility] Platelet countOrdered By: Xavier clement Billy on 09-03-2024 Platelets (Bld) [#/Vol] 305 10*3/uL 150-450 [facility] RBC Auto (Bld) [#/Vol]Ordere d By: Salma Cervantes on 09-03-2024 RBC (Bld) [#/Vol] 2.78 10*6/uL Low 4.6-6.2 [facility] White blood cell (WBC) count Ordered By: Salma Cervantes on 09-03-2024 WBC (Bld) [#/Vol] 7.7 10*3/uL 4.4-11.0 [facility] Anion gap in Serum or Plasma Ordered By: Salma Cervantes on 09-02-2024 Anion gap [Moles/Vol] 12 mmol/L - [facility] BUN/creatinine ratioOrdered By: Salma Cervantes on 09-02-2024 Urea nitrogen/Creatinine [Mass ratio] 13.7 mg/mg - [facility] Basic Metabolic Profile (BMP )on 09-02-2024 BUN/CRE 13.7 RATIO Normal - [facility] Comment on above: Performed By: #### L 500.2500 ####[facility] [address] [place], [place], [address] Calcium [Mass/Vol] 8.7 mg/dL Normal 7.6-11.0 [facility] Comment on above: Performed By: #### L 500.2500 ####[facility] [address] [place], [address] Chloride [Moles/Vol] 96 mmol/L Low 98-108 [facility] Comment on above: Performed By: #### L 500.2500 ####[facility] [address] [place], [address] CO2 [Moles/Vol] 23.2 mmol/L Normal 21.0-32.0 [facility] Comment on above: Performed By: #### L 500.2500 ####[facility] [address] [place], [address] Creatinine [Mass/Vol] 4.19 mg/dL High 0.70-1.20 [facility] Comment on above: Performed By: #### L 500.2500 ####[facility] [address] [place], [address] ECRCL 13.21 ml/min Low 50-250 [facility] Comment on above: Performed By: #### L 500.2500 ####[facility] [address] [place], [address] GAP 12 Normal 5-15 [facility] Comment on above: Performed By: #### L 500.2500 ####[facility] [address] [place], [address] GFR/1.73 sq M.predicted among non-blacks MDRD (S/P/Bld) [Vol rate/Area] 13 mL/min/{1.73_m2} Low >60 [facility] Comment on above: Result Comment: mL/m in/1.73m2 CKD-EPI Creatinine Equation (2020) Performed By: #### L 500.2500 ####[facility] [address] [place], [address] Glucose [Mass/Vol] 186 mg/dL High 70-99 [facility] Comment on above: Performed By: #### L 500.2500 ####[facility] [address] [place], [address] Potassium [Moles/Vol] 4.8 mmol/L Normal 3.3-5.1 [facility] Comment on above: Performed By: #### L 500.2500 ####[facility] [address] [place], [address] Sodium [Moles/Vol] 131 mmol/L Low 133-145 [facility] Comment on above: Performed By: #### L 500.2500 ####[facility] [address] [place], [address] Urea nitrogen [Mass/Vol] 57 mg/dL High 4-19 [facility] Comment on above: Performed By: #### L 500.2500 ####[facility] [address] [place], [address] Bedside Glucoseon 09-02-2024 FINGERSTICK GLU 212 mg/dL High 74-106 [facility] Comment on above: Result Comment: FANG GEMENT OF PATIENT CARE PER NURSING PROTOCOL Performed By: #### L 501.080 ####[facility] [address] [place], [address] FINGERSTICK GLU 183 mg/dL High 74-106 [facility] Comment on above: Result Comment: FANG GEMENT OF PATIENT CARE PER NURSING PROTOCOL Performed By: #### L 501.080 ####[facility] [address] [place], [address] FINGERSTICK GLU 219 mg/dL High 74-106 [facility] Comment on above: Result Comment: FANG GEMENT OF PATIENT CARE PER NURSING PROTOCOL Performed By: #### L 501.080 ####[facility] [address] [place], [address] FINGERSTICK GLU 177 mg/dL High 74-106 [facility] Comment on above: Result Comment: FANG GEMENT OF PATIENT CARE PER NURSING PROTOCOL Performed By: #### L 501.080 ####[facility] [address] [place], [address] CBC W/Diff, Automatedon 04-05 25-2024 Absolute Lymph 1.42 X10 3/uL Normal 0.83-4.51 [facility] Comment on above: Performed By: #### L 100.0100 ####[facility] [address] [place], [address] Absolute Neut 4.8 X10 3/uL Normal 2.0-7.7 [facility] Comment on above: Performed By: #### L 100.0100 ####[facility] [address] [place], [address] Basophils/100 WBC (Bld) 0.4 % Normal 0-1 [facility] Comment on above: Performed By: #### L 100.0100 ####[facility] [address] [place], [address] Eosinophils/100 WBC (Bld) 3.2 % Normal 0-5 [facility] Comment on above: Performed By: #### L 100.0100 ####[facility] [address] [place], [address] Erythrocyte distribution width (RBC) [Ratio] 16.0 % High 11.6-14.6 [facility] Comment on above: Performed By: #### L 100.0100 ####[facility] [address] [place], [address] Hematocrit (Bld) [Volume fraction] 25.8 % Low 40-54 [facility] Comment on above: Performed By: #### L 100.0100 ####[facility] [address] [place], [address] Hemoglobin (Bld) [Mass/Vol] 7.8 g/dL Low 13.0-16.5 [facility] Comment on above: Performed By: #### L 100.0100 ####[facility] [address] [place], [address] IG% 0.400 Normal 0.0-0.9 [facility] Comment on above: Result Comment: IG% - Immature Granulocytes (promyelocytes, myelocytes andmetamyelocytes) > 1% indicates that a LEFT SHIFT is Present. Performed By: #### L 100.0100 ####[facility] [address] [place], [address] Lymphocytes/100 WBC (Bld) 19.9 % Normal 19-41 [facility] Comment on above: Performed By: #### L 100.0100 ####[facility] [address] [place], [address] MCH (RBC) [Entitic mass] 27.2 pg Normal 27.0-32.0 [facility] Comment on above: Performed By: #### L 100.0100 ####[facility] [address] [place], [address] MCHC (RBC) [Mass/Vol] 30.2 g/dL Low 32-36 [facility] Comment on above: Performed By: #### L 100.0100 ####[facility] [address] [place], [address] MCV (RBC) [Entitic vol] 89.9 fL Normal 80-94 [facility] Comment on above: Performed By: #### L 100.0100 ####[facility] [address] [place], [address] Monocytes/100 WBC (Bld) 9.1 % Normal 0-10 [facility] Comment on above: Performed By: #### L 100.0100 ####[facility] [address] [place], [address] Neutrophils/100 WBC (Bld) 67.0 % Normal 47-70 [facility] Comment on above: Performed By: #### L 100.0100 ####[facility] [address] [place], [address] Nucleated RBC (Bld) [#/Vol] 0 10*3/uL Normal 0-5 [facility] Comment on above: Performed By: #### L 100.0100 ####[facility] [address] [place], [address] Platelet mean volume (Bld) [Entitic vol] 10.6 fL Normal 6.2-12.0 [facility] Comment on above: Performed By: #### L 100.0100 ####[facility] [address] [place], [address] Platelets (Bld) [#/Vol] 284 10*3/uL Normal 150-450 [facility] Comment on above: Performed By: #### L 100.0100 ####[facility] [address] [place], [address] RBC (Bld) [#/Vol] 2.87 10*6/uL Low 4.6-6.2 [facility] Comment on above: Performed By: #### L 100.0100 ####[facility] [address] [place], [address] RDW SD 52.3 fl High 35.1-43.9 [facility] Comment on above: Performed By: #### L 100.0100 ####[facility] [address] [place], [address] WBC (Bld) [#/Vol] 7.2 10*3/uL Normal 4.4-11.0 [facility] Comment on above: Performed By: #### L 100.0100 ####[facility] [address] [place], [address] Carbon dioxide, total [Moles /volume] in Central venous bloodOrdered By: Salma Cervantes on 09-02-2024 CO2 [Moles/Vol] 23.2 mmol/L 21.0-32.0 [facility] Chloride assayOrdered By: Xavier paulamilton Cervantes on 09-02-2024 Chloride [Moles/Vol] 96 mmol/L Low 98-108 [facility] Glomerular filtration rate ( GFR) estimation/1.73 sq m using serum, plasma, or whole bOrdered By: Salma Cervantes on 09-02-2024 GFR/1.73 sq M.predicted among non-blacks MDRD (S/P/Bld) [Vol rate/Area] 13 mL/min/{1.73_m2} Low >60 [facility] Potassium measurement (mass/ volume)Ordered By: Salma Cervantes on 09-02-2024 Potassium (Unsp spec) [Mass/Vol] 4.8 mmol/L 3.3-5.1 [facility] Serum creatinine measurement (mass/volume)Ordered By: Salma Cervantes on 09-02-2024 Creatinine [Mass/Vol] 4.19 mg/dL High 0.70-1.20 [facility] Serum glucose measurement (m ass/volume)Ordered By: Salma Cervantes on 09-02-2024 Glucose [Mass/Vol] 186 mg/dL High 70-99 [facility] Serum or plasma calcium lilli urement (mass/volume)Ordered By: Salma Cervantes on 09-02-2024 Calcium [Mass/Vol] 8.7 mg/dL 7.6-11.0 [facility] Serum or plasma urea nitroge n measurement (mass/volume)Ordered By: Salma Cervantes on 09-02-2024 Urea nitrogen [Mass/Vol] 57 mg/dL High 4-19 [facility] Sodium levelOrdered By: Juan Cervantes on 09-02-2024 Sodium [Moles/Vol] 131 mmol/L Low 133-145 [facility] Bedside Glucoseon 09-01-2024 FINGERSTICK GLU 183 mg/dL High 74-106 [facility] Comment on above: Result Comment: FANG VAZQUEZ OF PATIENT CARE PER NURSING PROTOCOL Performed By: #### L 501.080 ####[facility] [address] [place], [address] FINGERSTICK GLU 230 mg/dL High 74-106 [facility] Comment on above: Result Comment: FANG GEMENT OF PATIENT CARE PER NURSING PROTOCOL Performed By: #### L 501.080 ####[facility] [address] [place], [address] FINGERSTICK GLU 103 mg/dL Normal 74-106 [facility] Comment on above: Result Comment: FANG GEMENT OF PATIENT CARE PER NURSING PROTOCOL Performed By: #### L 501.080 ####[facility] [address] [place], [address] FINGERSTICK GLU 216 mg/dL High -106 [facility] Comment on above: Result Comment: FANG GEMENT OF PATIENT CARE PER NURSING PROTOCOL Performed By: #### L 501.080 ####[facility] [address] [place], [address] Serum or plasma vancomycin m easurement (mass/volume)Ordered By: Earl White on 09-01-2024 Vancomycin [Mass/Vol] 14.1 ug/mL 0.0-15.0 [facility] Vancomycin, Random Levelon 0 09-01-2024 VANCO, RANDOM 14.1 ug/mL Normal 0.0-15.0 [facility] Comment on above: Result Comment: VANC OMYCIN STANDARD DRUG THERAPY: CRITICAL VALUE IS > 15.0 mg/LVANCOMYCIN HIGH INTENSITY THERAPY: CRITICAL VALUE IS > 20.0 mg/LPLEASE CONTACT PHARMACY SERVICES (#4794) FOR INTERPRETATIONOF RESULTS. THIS RESULT DOES NOT REPRESENT A PEAK OR TROUGHLEVEL FOR THIS DRUG. Performed By: #### L 501.8850 ####[facility] [address] [place], [address] AV Fistula/Dialysis Graft Sc anon 08-31-2024 AV Fistula/Dialysis Graft Scan Normal [facility] Bedside Glucoseon 08-31-2024 FINGERSTICK GLU 169 mg/dL High 74-106 [facility] Comment on above: Result Comment: FANG GEMENT OF PATIENT CARE PER NURSING PROTOCOL Performed By: #### L 501.080 ####[facility] [address] [place], [address] FINGERSTICK GLU 207 mg/dL High 74-106 [facility] Comment on above: Result Comment: FANG GEMENT OF PATIENT CARE PER NURSING PROTOCOL Performed By: #### L 501.080 ####[facility] [address] [place], [address] FINGERSTICK GLU 162 mg/dL High 74-106 [facility] Comment on above: Result Comment: FANG GEMENT OF PATIENT CARE PER NURSING PROTOCOL Performed By: #### L 501.080 ####[facility] [address] [place], [address] FINGERSTICK GLU 189 mg/dL High 74-106 [facility] Comment on above: Result Comment: FANG GEMENT OF PATIENT CARE PER NURSING PROTOCOL Performed By: #### L 501.080 ####[facility] [address] [place], [address] CBC W/Diff, Automatedon 04- Absolute Lymph 1.13 X10 3/uL Normal 0.83-4.51 [facility] Comment on above: Performed By: #### L 100.0100 ####[facility] [address] [place], [address] Absolute Neut 5.3 X10 3/uL Normal 2.0-7.7 [facility] Comment on above: Performed By: #### L 100.0100 ####[facility] [address] [place], [address] Basophils/100 WBC (Bld) 0.6 % Normal 0-1 [facility] Comment on above: Performed By: #### L 100.0100 ####[facility] [address] [place], [address] Eosinophils/100 WBC (Bld) 3.1 % Normal 0-5 [facility] Comment on above: Performed By: #### L 100.0100 ####[facility] [address] [place], [address] Erythrocyte distribution width (RBC) [Ratio] 16.1 % High 11.6-14.6 [facility] Comment on above: Performed By: #### L 100.0100 ####[facility] [address] [place], [address] Hematocrit (Bld) [Volume fraction] 26.1 % Low 40-54 [facility] Comment on above: Performed By: #### L 100.0100 ####[facility] [address] [place], [address] Hemoglobin (Bld) [Mass/Vol] 7.7 g/dL Low 13.0-16.5 [facility] Comment on above: Performed By: #### L 100.0100 ####[facility] [address] [place], [address] IG% 0.500 Normal 0.0-0.9 [facility] Comment on above: Result Comment: IG% - Immature Granulocytes (promyelocytes, myelocytes andmetamyelocytes) > 1% indicates that a LEFT SHIFT is Present. Performed By: #### L 100.0100 ####[facility] [address] [place], [address] Lymphocytes/100 WBC (Bld) 14.5 % Low 19-41 [facility] Comment on above: Performed By: #### L 100.0100 ####[facility] [address] [place], [address] MCH (RBC) [Entitic mass] 27.0 pg Normal 27.0-32.0 [facility] Comment on above: Performed By: #### L 100.0100 ####[facility] [address] [place], [address] MCHC (RBC) [Mass/Vol] 29.5 g/dL Low 32-36 [facility] Comment on above: Performed By: #### L 100.0100 ####[facility] [address] [place], [address] MCV (RBC) [Entitic vol] 91.6 fL Normal 80-94 [facility] Comment on above: Performed By: #### L 100.0100 ####[facility] [address] [place], [address] Monocytes/100 WBC (Bld) 12.9 % High 0-10 [facility] Comment on above: Performed By: #### L 100.0100 ####[facility] [address] [place], [address] Neutrophils/100 WBC (Bld) 68.4 % Normal 47-70 [facility] Comment on above: Performed By: #### L 100.0100 ####[facility] [address] [place], [address] Nucleated RBC (Bld) [#/Vol] 0 10*3/uL Normal 0-5 [facility] Comment on above: Performed By: #### L 100.0100 ####[facility] [address] [place], [address] Platelet mean volume (Bld) [Entitic vol] 10.5 fL Normal 6.2-12.0 [facility] Comment on above: Performed By: #### L 100.0100 ####[facility] [address] [place], [address] Platelets (Bld) [#/Vol] 234 10*3/uL Normal 150-450 [facility] Comment on above: Performed By: #### L 100.0100 ####[facility] [address] [place], [address] RBC (Bld) [#/Vol] 2.85 10*6/uL Low 4.6-6.2 [facility] Comment on above: Performed By: #### L 100.0100 ####[facility] [address] [place], [address] RDW SD 53.4 fl High 35.1-43.9 [facility] Comment on above: Performed By: #### L 100.0100 ####[facility] [address] [place], [address] WBC (Bld) [#/Vol] 7.8 10*3/uL Normal 4.4-11.0 [facility] Comment on above: Performed By: #### L 100.0100 ####[facility] [address] [place], [address] Basic Metabolic Profile (BMP )on 08-30-2024 BUN/CRE 11.0 RATIO Normal 10-20 [facility] Comment on above: Performed By: #### L 500.2500, L100.0100 ####[facility] [facility] [address] [place], [address] Calcium [Mass/Vol] 8.7 mg/dL Normal 7.6-11.0 [facility] Comment on above: Performed By: #### L 500.2500, L100.0100 ####[facility] [address] [place], [address] Chloride [Moles/Vol] 92 mmol/L Low 98-108 [facility] Comment on above: Performed By: #### L 500.2500, L100.0100 ####[facility] [address] [place], [address] CO2 [Moles/Vol] 27.5 mmol/L Normal 21.0-32.0 [facility] Comment on above: Performed By: #### L 500.2500, L100.0100 ####[facility] [address] [place], [address] Creatinine [Mass/Vol] 5.42 mg/dL High 0.70-1.20 [facility] Comment on above: Performed By: #### L 500.2500, L100.0100 ####[facility] [address] [place], [address] ECRCL 12.64 ml/min Low 50-250 [facility] Comment on above: Performed By: #### L 500.2500, L100.0100 ####[facility] [address] [place], [address] GAP 14 Normal 5-15 [facility] Comment on above: Performed By: #### L 500.2500, L100.0100 ####[facility] [address] [place], [address] GFR/1.73 sq M.predicted among non-blacks MDRD (S/P/Bld) [Vol rate/Area] 10 mL/min/{1.73_m2} Low >60 [facility] Comment on above: Result Comment: mL/m in/1.73m2 CKD-EPI Creatinine Equation (2020) Performed By: #### L 500.2500, L100.0100 ####[facility] [address] [place], [address] Glucose [Mass/Vol] 196 mg/dL High 70-99 [facility] Comment on above: Performed By: #### L 500.2500, L100.0100 ####[facility] [address] [place], [address] Potassium [Moles/Vol] 5.2 mmol/L High 3.3-5.1 [facility] Comment on above: Performed By: #### L 500.2500, L100.0100 ####[facility] [address] [place], [address] Sodium [Moles/Vol] 134 mmol/L Normal 133-145 [facility] Comment on above: Performed By: #### L 500.2500, L100.0100 ####[facility] [address] [place], [address] Urea nitrogen [Mass/Vol] 60 mg/dL High 4-19 [facility] Comment on above: Performed By: #### L 500.2500, L100.0100 ####[facility] [address] [place], [address] Bedside Glucoseon 08-30-2024 FINGERSTICK GLU 285 mg/dL High 74-106 [facility] Comment on above: Result Comment: FANG GEMENT OF PATIENT CARE PER NURSING PROTOCOL Performed By: #### L 501.080 ####[facility] [address] [place], [address] FINGERSTICK GLU 287 mg/dL High 74-106 [facility] Comment on above: Result Comment: FANG GEMENT OF PATIENT CARE PER NURSING PROTOCOL Performed By: #### L 501.080 ####[facility] [address] [place], [address] FINGERSTICK GLU 192 mg/dL High 74-106 [facility] Comment on above: Result Comment: FANG GEMENT OF PATIENT CARE PER NURSING PROTOCOL Performed By: #### L 501.080 ####[facility] [address] [place], [address] FINGERSTICK GLU 195 mg/dL High 74-106 [facility] Comment on above: Result Comment: FANG GEMENT OF PATIENT CARE PER NURSING PROTOCOL Performed By: #### L 501.080 ####[facility] [address] [place], [address] CBC W/Diff, Automatedon 04- 0 Absolute Lymph 1.31 X10 3/uL Normal 0.83-4.51 [facility] Comment on above: Performed By: #### L 500.2500, L100.0100 ####[facility] [address] [place], [address] Absolute Neut 7.1 X10 3/uL Normal 2.0-7.7 [facility] Comment on above: Performed By: #### L 500.2500, L100.0100 ####[facility] [address] [place], [address] Basophils/100 WBC (Bld) 0.5 % Normal 0-1 [facility] Comment on above: Performed By: #### L 500.2500, L100.0100 ####[facility] [address] [place], [address] Eosinophils/100 WBC (Bld) 0.9 % Normal 0-5 [facility] Comment on above: Performed By: #### L 500.2500, L100.0100 ####[facility] [address] [place], [address] Erythrocyte distribution width (RBC) [Ratio] 16.3 % High 11.6-14.6 [facility] Comment on above: Performed By: #### L 500.2500, L100.0100 ####[facility] [address] [place], [address] Hematocrit (Bld) [Volume fraction] 26.9 % Low 40-54 [facility] Comment on above: Performed By: #### L 500.2500, L100.0100 ####[facility] [address] [place], [address] Hemoglobin (Bld) [Mass/Vol] 7.9 g/dL Low 13.0-16.5 [facility] Comment on above: Performed By: #### L 500.2500, L100.0100 ####[facility] [address] [place], [address] IG% 0.600 Normal 0.0-0.9 [facility] Comment on above: Result Comment: IG% - Immature Granulocytes (promyelocytes, myelocytes andmetamyelocytes) > 1% indicates that a LEFT SHIFT is Present. Performed By: #### L 500.2500, L100.0100 ####[facility] [address] [place], [address] Lymphocytes/100 WBC (Bld) 13.4 % Low 19-41 [facility] Comment on above: Performed By: #### L 500.2500, L100.0100 ####[facility] [address] [place], [address] MCH (RBC) [Entitic mass] 26.8 pg Low 27.0-32.0 [facility] Comment on above: Performed By: #### L 500.2500, L100.0100 ####[facility] [address] [place], [address] MCHC (RBC) [Mass/Vol] 29.4 g/dL Low 32-36 [facility] Comment on above: Performed By: #### L 500.2500, L100.0100 ####[facility] [address] [place], [address] MCV (RBC) [Entitic vol] 91.2 fL Normal 80-94 [facility] Comment on above: Performed By: #### L 500.2500, L100.0100 ####[facility] [address] [place], [address] Monocytes/100 WBC (Bld) 12.2 % High 0-10 [facility] Comment on above: Performed By: #### L 500.2500, L100.0100 ####[facility] [address] [place], [address] Neutrophils/100 WBC (Bld) 72.4 % High 47-70 [facility] Comment on above: Performed By: #### L 500.2500, L100.0100 ####[facility] [address] [place], [address] Nucleated RBC (Bld) [#/Vol] 0 10*3/uL Normal 0-5 [facility] Comment on above: Performed By: #### L 500.2500, L100.0100 ####[facility] [address] [place], [address] Platelet mean volume (Bld) [Entitic vol] 10.7 fL Normal 6.2-12.0 [facility] Comment on above: Performed By: #### L 500.2500, L100.0100 ####[facility] [address] [place], [address] Platelets (Bld) [#/Vol] 279 10*3/uL Normal 150-450 [facility] Comment on above: Performed By: #### L 500.2500, L100.0100 ####[facility] [address] [place], [address] RBC (Bld) [#/Vol] 2.95 10*6/uL Low 4.6-6.2 [facility] Comment on above: Performed By: #### L 500.2500, L100.0100 ####[facility] [address] [place], [address] RDW SD 54.3 fl High 35.1-43.9 [facility] Comment on above: Performed By: #### L 500.2500, L100.0100 ####[facility] [address] [place], [address] WBC (Bld) [#/Vol] 9.8 10*3/uL Normal 4.4-11.0 [facility] Comment on above: Performed By: #### L 500.2500, L100.0100 ####[facility] [address] [place], [address] Consultation - Nephrologyon 08-30-2024 Consultation - Nephrology Normal [facility] Vancomycin, Random Levelon 0 08-30-2024 VANCO, RANDOM 12.3 ug/mL Normal 0.0-15.0 [facility] Comment on above: Result Comment: VANC OMYCIN STANDARD DRUG THERAPY: CRITICAL VALUE IS > 15.0 mg/LVANCOMYCIN HIGH INTENSITY THERAPY: CRITICAL VALUE IS > 20.0 mg/LPLEASE CONTACT PHARMACY SERVICES (#2345) FOR INTERPRETATIONOF RESULTS. THIS RESULT DOES NOT REPRESENT A PEAK OR TROUGHLEVEL FOR THIS DRUG. Performed By: #### L 501.8850 ####[facility] [address] [place], [address] Bedside Glucoseon 08-29-2024 FINGERSTICK GLU 218 mg/dL High 74-106 [facility] Comment on above: Result Comment: FANG GEMENT OF PATIENT CARE PER NURSING PROTOCOL Performed By: #### L 501.080 ####[facility] [address] [place], [address] FINGERSTICK GLU 236 mg/dL High [facility]106 [facility] Comment on above: Result Comment: FANG GEMENT OF PATIENT CARE PER NURSING PROTOCOL Performed By: #### L 501.080 ####[facility] [address] [place], [address] FINGERSTICK GLU 220 mg/dL High [facility]106 [facility] Comment on above: Result Comment: FANG GEMENT OF PATIENT CARE PER NURSING PROTOCOL Performed By: #### L 501.080 ####[facility] [address] [place], [address] FINGERSTICK GLU 175 mg/dL High [facility]106 [facility] Comment on above: Result Comment: FANG GEMENT OF PATIENT CARE PER NURSING PROTOCOL Performed By: #### L 501.080 ####[facility] [address] [place], [address] Decalcification bone/plaqueo n 08-29-2024 Decalcification bone/plaque Normal [facility] Comment on above: Performed By: #### P DEC ####[facility] [address] [place], [address] H AND P Exam - Surgicalon H&P Exam - Surgical Normal [facility] MR/POSTOP.ANEon 08-29-2024 MR/POSTOP.ANE Normal [facility] MR/TGIVKGNO1zg 08-29-2024 MR/POSTOPAN2 Normal [facility] Operative Reporton Operative Report Normal [facility] BRCon 08-28-2024 RC Normal [facility] Comment on above: Result Comment: [id number] RC XM COMPATIBLE Performed By: #### B TSPAT, L500.2500, BRC, L100.0500 ####[facility] [address] 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, [address] Chloride [Moles/Vol] 93 mmol/L Low 98-108 [facility] Comment on above: Order Comment: 400.1 Amputation Below Knee (Right) Performed By: #### B TSPAT, L500.2500, BRC, L100.0500 ####[facility] [address] [place], [address] CO2 [Moles/Vol] 24.9 mmol/L Normal 21.0-32.0 [facility] Comment on above: Order Comment: 400.1 Amputation Below Knee (Right) Performed By: #### B TSPAT, L500.2500, BRC, L100.0500 ####[facility] [address] [place], [address] Creatinine [Mass/Vol] 5.77 mg/dL High 0.70-1.20 [facility] Comment on above: Order Comment: 400.1 Amputation Below Knee (Right) Performed By: #### B TSPAT, L500.2500, BRC, L100.0500 ####[facility] [address] [place], [address] GAP 16 High 5-15 [facility] Comment on above: Order Comment: 400.1 Amputation Below Knee (Right) Performed By: #### B TSPAT, L500.2500, BRC, L100.0500 ####[facility] [address] 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, [address] Sodium [Moles/Vol] 134 mmol/L Normal 133-145 [facility] Comment on above: Order Comment: 400.1 Amputation Below Knee (Right) Performed By: #### B TSPAT, L500.2500, [facility], L100.0500 ####[facility] [address] 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, [address] CBC-Complete Blood Cnt No Di ffon 08-28-2024 Erythrocyte distribution width (RBC) [Ratio] 16.2 % High 11.6-14.6 [facility] Comment on above: Order Comment: 400.1 Performed By: #### B TSPAT, L500.2500, [facility], L100.0500 ####[facility] [address] [place], [address] Hematocrit (Bld) [Volume fraction] 30.6 % Low 40-54 [facility] Comment on above: Order Comment: 400.1 Performed By: #### B TSPAT, L500.2500, [facility], L100.0500 ####[facility] [address] [place], [address] Hemoglobin (Bld) [Mass/Vol] 9.1 g/dL Low 13.0-16.5 [facility] Comment on above: Order Comment: 400.1 Performed By: #### B TSPAT, L500.2500, BRC, L100.0500 ####[facility] [address] [place], [address] MCH (RBC) [Entitic mass] 26.9 pg Low 27.0-32.0 [facility] Comment on above: Order Comment: 400.1 Performed By: #### B TSPAT, L500.2500, BR[facility], L100.0500 ####[facility] [address] [place], [address] MCHC (RBC) [Mass/Vol] 29.7 g/dL Low 32-36 [facility] Comment on above: Order Comment: 400.1 Performed By: #### B TSPAT, L500.2500, [facility], L100.0500 ####[facility] [address] [place], [address] MCV (RBC) [Entitic vol] 90.5 fL Normal 80-94 [facility] Comment on above: Order Comment: 400.1 Performed By: #### B TSPAT, L500.2500, BR[facility], L100.0500 ####[facility] [address] [place], [address] Platelet mean volume (Bld) [Entitic vol] 10.5 fL Normal 6.2-12.0 [facility] Comment on above: Order Comment: 400.1 Performed By: #### B TSPAT, L500.2500, BRC, L100.0500 ####[facility] [address] [place], [address] Platelets (Bld) [#/Vol] 321 10*3/uL Normal 150-450 [facility] Comment on above: Order Comment: 400.1 Performed By: #### B TSPAT, L500.2500, BR[facility], L100.0500 ####[facility] [address] [place], [address] RBC (Bld) [#/Vol] 3.38 10*6/uL Low 4.6-6.2 [facility] Comment on above: Order Comment: 400.1 Performed By: #### B TSPAT, L500.2500, [facility], L100.0500 ####[facility] [address] [place], [address] RDW SD 53.1 fl High 35.1-43.9 [facility] Comment on above: Order Comment: 400.1 Performed By: #### B TSPAT, L500.2500, [facility], L100.0500 ####[facility] [address] [place], [address] WBC (Bld) [#/Vol] 9.5 10*3/uL Normal 4.4-11.0 [facility] Comment on above: Order Comment: 400.1 Performed By: #### B TSPAT, L500.2500, [facility], L100.0500 ####[facility] [address] [place], [address] MR/PAT.ANEon 08-28-2024 MR/PAT.ANE Normal [facility] Type AND Screen - PAT ONLYon 08-28-2024 Ab SCREEN GEL Negative Normal [facility] Comment on above: Order Comment: SURGE RY DATE 08/29/2024 Amputation Below Knee (Right)[id number] Below Knee (Right)[id number] Below Knee (Right)TURNEYOTHER Performed By: #### B TSPAT, L500.2500, [facility], L100.0500 ####[facility] [address] [place], [address] Absolute lymphocyte countOrd ered By: Nando Wiggins on 08-27-2024 Lymphocytes Auto (Unsp spec) [#/Vol] 1.45 10*3/uL 0.83-4.51 [facility] Anion gap in Serum or Plasma Ordered By: Nando Wiggins on 08-27-2024 Anion gap [Moles/Vol] 15 mmol/L 5-15 [facility] Automated lymphocyte count a s percentage of total leukocytesOrdered By: Nando Wiggins on 08-27-2024 Lymphocytes/100 WBC Auto (Unsp spec) 16.0 % Low 19-41 [facility] BUN/creatinine ratioOrdered By: biancaissuewolf Wiggins on 08-27-2024 Urea nitrogen/Creatinine [Mass ratio] 10.5 mg/mg 10-20 [facility] Basophil percentageOrdered B y: Nando Wiggins on 08-27-2024 Basophils/100 WBC (Bld) 0.6 % 0-1 [facility] Carbon dioxide, total [Moles /volume] in Central venous bloodOrdered By: Debissuewolf Wiggins on 08-27-2024 CO2 [Moles/Vol] 26.5 mmol/L 21.0-32.0 [facility] Chloride assayOrdered By: Kathie Wiggins on 08-27-2024 Chloride [Moles/Vol] 94 mmol/L Low 98-108 [facility] Eosinophil percentageOrdered By: fili Wiggins on 08-27-2024 Eosinophils/100 WBC (Bld) 2.3 % 0-5 [facility] Erythrocyte distribution wid th ratioOrdered By: Nando Wiggins on 08-27-2024 Erythrocyte distribution width (RBC) [Ratio] 16.3 % High 11.6-14.6 [facility] Erythrocyte distribution wid th standard deviationOrdered By: biancaissuewolf Wiggins on 08-27-2024 Erythrocyte distribution width (RBC) [Ratio] 54.3 fl High 35.1-43.9 [facility] Glomerular filtration rate ( GFR) estimation/1.73 sq m using serum, plasma, or whole bOrdered By: Nando Wiggins on 08-27-2024 GFR/1.73 sq M.predicted among non-blacks MDRD (S/P/Bld) [Vol rate/Area] 10 mL/min/{1.73_m2} Low >60 [facility] Hematocrit Auto (Bld) [Volum e fraction]Ordered By: Nando Wiggins on 08-27-2024 Hematocrit (Bld) [Volume fraction] 30.4 % Low 40-54 [facility] Hemoglobin measurementOrdere d By: Nando Wiggins on 08-27-2024 Hemoglobin (Bld) [Mass/Vol] 9.0 g/dL Low 13.0-16.5 [facility] Immature granulocytes/100 WB C Auto (Bld)Ordered By: Nando Wiggins on 08-27-2024 Immature granulocytes/100 WBC (Bld) 0.700 % 0.0-0.9 [facility] MCV (mean corpuscular volume ) determinationOrdered By: Nanod Wiggins on 08-27-2024 MCV (RBC) [Entitic vol] 91.3 fL 80-94 [facility] Mean corpuscular hemoglobin (MCH) determinationOrdered By: Nando Wiggins on 08-27-2024 MCH (RBC) [Entitic mass] 27.0 pg 27.0-32.0 [facility] Monocyte percentageOrdered B y: Nando Wiggins on 08-27-2024 Monocytes/100 WBC (Bld) 10.7 % High 0-10 [facility] Neutrophil percentageOrdered By: fili Wiggins on 08-27-2024 Neutrophils/100 WBC (Bld) 69.7 % 47-70 [facility] Platelet countOrdered By: Kathie rehanwolf Wiggins on 08-27-2024 Platelets (Bld) [#/Vol] 300 10*3/uL 150-450 [facility] Potassium measurement (mass/ volume)Ordered By: Nando Wiggins on 08-27-2024 Potassium (Unsp spec) [Mass/Vol] 3.7 mmol/L 3.3-5.1 [facility] RBC Auto (Bld) [#/Vol]Ordere d By: Nando Wiggins on 08-27-2024 RBC (Bld) [#/Vol] 3.33 10*6/uL Low 4.6-6.2 [facility] Serum creatinine measurement (mass/volume)Ordered By: Nando Wiggins on 08-27-2024 Creatinine [Mass/Vol] 5.29 mg/dL High 0.70-1.20 [facility] Serum glucose measurement (m ass/volume)Ordered By: Nando Wiggins on 08-27-2024 Glucose [Mass/Vol] 261 mg/dL High 70-99 [facility] Serum or plasma calcium lilli urement (mass/volume)Ordered By: Nando Wiggins on 08-27-2024 Calcium [Mass/Vol] 8.8 mg/dL 7.6-11.0 [facility] Serum or plasma urea nitroge n measurement (mass/volume)Ordered By: Nando Wiggins on 08-27-2024 Urea nitrogen [Mass/Vol] 55 mg/dL High 4-19 [facility] Sodium levelOrdered By: Deb Wiggins on 08-27-2024 Sodium [Moles/Vol] 135 mmol/L 133-145 [facility] White blood cell (WBC) count Ordered By: Nando Wiggins on 08-27-2024 WBC (Bld) [#/Vol] 9.0 10*3/uL 4.4-11.0 [facility] Absolute lymphocyte countOrd ered By: Nando Wiggins on 08-20-2024 Lymphocytes Auto (Unsp spec) [#/Vol] 2.15 10*3/uL 0.83-4.51 [facility] Anion gap in Serum or Plasma Ordered By: Nando Wiggins on 08-20-2024 Anion gap [Moles/Vol] 15 mmol/L 5-15 [facility] Automated lymphocyte count a s percentage of total leukocytesOrdered By: Nando Wiggins on 08-20-2024 Lymphocytes/100 WBC Auto (Unsp spec) 25.2 % 19-41 [facility] BUN/creatinine ratioOrdered By: Nando Wiggins on 08-20-2024 Urea nitrogen/Creatinine [Mass ratio] 12.6 mg/mg 10-20 [facility] Basophil percentageOrdered B y: Nando Wiggins on 08-20-2024 Basophils/100 WBC (Bld) 0.8 % 0-1 [facility] Carbon dioxide, total [Moles /volume] in Central venous bloodOrdered By: Nando Wiggins on 08-20-2024 CO2 [Moles/Vol] 26.9 mmol/L 21.0-32.0 [facility] Chloride assayOrdered By: Kathie Wiggins on 08-20-2024 Chloride [Moles/Vol] 93 mmol/L Low 98-108 [facility] Eosinophil percentageOrdered By: Nando Wiggins on 08-20-2024 Eosinophils/100 WBC (Bld) 2.2 % 0-5 [facility] Erythrocyte distribution wid th ratioOrdered By: Nando Wiggins on 08-20-2024 Erythrocyte distribution width (RBC) [Ratio] 16.0 % High 11.6-14.6 [facility] Erythrocyte distribution wid th standard deviationOrdered By: Nando Wiggins on 08-20-2024 Erythrocyte distribution width (RBC) [Ratio] 54.5 fl High 35.1-43.9 [facility] Glomerular filtration rate ( GFR) estimation/1.73 sq m using serum, plasma, or whole bOrdered By: Nando Wiggins on 08-20-2024 GFR/1.73 sq M.predicted among non-blacks MDRD (S/P/Bld) [Vol rate/Area] 12 mL/min/{1.73_m2} Low >60 [facility] Hematocrit Auto (Bld) [Volum e fraction]Ordered By: Nando Wiggins on 08-20-2024 Hematocrit (Bld) [Volume fraction] 30.9 % Low 40-54 [facility] Hemoglobin measurementOrdere d By: Nando Wiggins on 08-20-2024 Hemoglobin (Bld) [Mass/Vol] 9.2 g/dL Low 13.0-16.5 [facility] Immature granulocytes/100 WB C Auto (Bld)Ordered By: Nando Wiggins on 08-20-2024 Immature granulocytes/100 WBC (Bld) 0.800 % 0.0-0.9 [facility] MCV (mean corpuscular volume ) determinationOrdered By: Nando Wiggins on 08-20-2024 MCV (RBC) [Entitic vol] 92.2 fL 80-94 [facility] Mean corpuscular hemoglobin (MCH) determinationOrdered By: Nando Wiggins on 08-20-2024 MCH (RBC) [Entitic mass] 27.5 pg 27.0-32.0 [facility] Monocyte percentageOrdered B y: Nando Wiggins on 08-20-2024 Monocytes/100 WBC (Bld) 8.3 % 0-10 [facility] Neutrophil percentageOrdered By: Nando Wiggins on 08-20-2024 Neutrophils/100 WBC (Bld) 62.7 % 47-70 [facility] Platelet countOrdered By: Kathie Wiggins on 08-20-2024 Platelets (Bld) [#/Vol] 321 10*3/uL 150-450 [facility] Potassium measurement (mass/ volume)Ordered By: Nando Wiggins on 08-20-2024 Potassium (Unsp spec) [Mass/Vol] 4.1 mmol/L 3.3-5.1 [facility] RBC Auto (Bld) [#/Vol]Ordere d By: Nando Wiggins on 08-20-2024 RBC (Bld) [#/Vol] 3.35 10*6/uL Low 4.6-6.2 [facility] Serum creatinine measurement (mass/volume)Ordered By: Nando Wiggins on 08-20-2024 Creatinine [Mass/Vol] 4.37 mg/dL High 0.70-1.20 [facility] Serum glucose measurement (m ass/volume)Ordered By: Nando Wiggins on 08-20-2024 Glucose [Mass/Vol] 85 mg/dL 70-99 [facility] Serum or plasma calcium lilli urement (mass/volume)Ordered By: Nando Wiggins on 08-20-2024 Calcium [Mass/Vol] 9.3 mg/dL 7.6-11.0 [facility] Serum or plasma urea nitroge n measurement (mass/volume)Ordered By: Nando Wiggins on 08-20-2024 Urea nitrogen [Mass/Vol] 55 mg/dL High 4-19 [facility] Sodium levelOrdered By: Deb burknereida Rosalie on 08-20-2024 Sodium [Moles/Vol] 134 mmol/L 133-145 [facility] White blood cell (WBC) count Ordered By: Nando Wiggins on 08-20-2024 WBC (Bld) [#/Vol] 8.5 10*3/uL 4.4-11.0 [facility] Absolute lymphocyte countOrd ered By: Nando Wiggins on 08-13-2024 Lymphocytes Auto (Unsp spec) [#/Vol] 1.80 10*3/uL 0.83-4.51 [facility] Anion gap in Serum or Plasma Ordered By: Nando Wiggins on 08-13-2024 Anion gap [Moles/Vol] 15 mmol/L 5-15 [facility] Automated lymphocyte count a s percentage of total leukocytesOrdered By: Nando Wiggins on 08-13-2024 Lymphocytes/100 WBC Auto (Unsp spec) 22.5 % 19-41 [facility] BUN/creatinine ratioOrdered By: Nando Wiggins on 08-13-2024 Urea nitrogen/Creatinine [Mass ratio] 8.8 mg/mg Low 10-20 [facility] Basophil percentageOrdered B y: Nando Wiggins on 08-13-2024 Basophils/100 WBC (Bld) 0.5 % 0-1 [facility] Bilirubin directOrdered By: Nando Wiggins on 08-13-2024 Bilirubin.direct [Mass/Vol] mg/dL 0.00-0.30 [facility] Bilirubin, totalOrdered By: Nando Wiggins on 08-13-2024 Bilirubin [Mass/Vol] 0.25 mg/dL 0.00-1.30 [facility] Carbon dioxide, total [Moles /volume] in Central venous bloodOrdered By: Nando Wiggins on 08-13-2024 CO2 [Moles/Vol] 25.2 mmol/L 21.0-32.0 [facility] Chloride assayOrdered By: Kathie Wiggins on 08-13-2024 Chloride [Moles/Vol] 94 mmol/L Low 98-108 [facility] Eosinophil percentageOrdered By: Nando Wiggins on 08-13-2024 Eosinophils/100 WBC (Bld) 2.6 % 0-5 [facility] Erythrocyte distribution wid th ratioOrdered By: Nando Wiggins on 08-13-2024 Erythrocyte distribution width (RBC) [Ratio] 16.8 % High 11.6-14.6 [facility] Erythrocyte distribution wid th standard deviationOrdered By: Nando Wiggins on 08-13-2024 Erythrocyte distribution width (RBC) [Ratio] 57.7 fl High 35.1-43.9 [facility] Glomerular filtration rate ( GFR) estimation/1.73 sq m using serum, plasma, or whole bOrdered By: Nando Wiggins on 08-13-2024 GFR/1.73 sq M.predicted among non-blacks MDRD (S/P/Bld) [Vol rate/Area] 13 mL/min/{1.73_m2} Low >60 [facility] Hematocrit Auto (Bld) [Volum e fraction]Ordered By: Nando Wiggins on 08-13-2024 Hematocrit (Bld) [Volume fraction] 28.8 % Low 40-54 [facility] Hemoglobin A1c percentageOrd ered By: Nando Wiggins on 08-13-2024 HbA1c (Bld) [Mass fraction] 6.1 % >5.7 [facility] Hemoglobin measurementOrdere d By: Nando Wiggins on 08-13-2024 Hemoglobin (Bld) [Mass/Vol] 8.6 g/dL Low 13.0-16.5 [facility] Immature granulocytes/100 WB C Auto (Bld)Ordered By: Nando Wiggins on 08-13-2024 Immature granulocytes/100 WBC (Bld) 0.400 % 0.0-0.9 [facility] MCV (mean corpuscular volume ) determinationOrdered By: Nando Wiggins on 08-13-2024 MCV (RBC) [Entitic vol] 94.4 fL High 80-94 [facility] Mean corpuscular hemoglobin (MCH) determinationOrdered By: Nando Wiggins on 08-13-2024 MCH (RBC) [Entitic mass] 28.2 pg 27.0-32.0 [facility] Monocyte percentageOrdered B y: Nando Wiggins on 08-13-2024 Monocytes/100 WBC (Bld) 10.7 % High 0-10 [facility] Neutrophil percentageOrdered By: Nando Wiggins on 08-13-2024 Neutrophils/100 WBC (Bld) 63.3 % 47-70 [facility] No Panel InformationOrdered By: Nando Wiggins on 08-13-2024 18 U/L <38 [facility] Platelet countOrdered By: Kathie Wiggins on 08-13-2024 Platelets (Bld) [#/Vol] 265 10*3/uL 150-450 [facility] Potassium measurement (mass/ volume)Ordered By: Nando Wiggins on 08-13-2024 Potassium (Unsp spec) [Mass/Vol] 3.9 mmol/L 3.3-5.1 [facility] RBC Auto (Bld) [#/Vol]Ordere d By: Nando Wiggins on 08-13-2024 RBC (Bld) [#/Vol] 3.05 10*6/uL Low 4.6-6.2 [facility] Serum creatinine measurement (mass/volume)Ordered By: Nando Wiggins on 08-13-2024 Creatinine [Mass/Vol] 4.28 mg/dL High 0.70-1.20 [facility] Serum globulin measurementOr dered By: Nando Wiggins on 08-13-2024 Globulin (S) [Mass/Vol] 3.8 g/dL 2.2-4.2 [facility] Serum glucose measurement (m ass/volume)Ordered By: Nando Wiggins on 08-13-2024 Glucose [Mass/Vol] 96 mg/dL 70-99 [facility] Serum or plasma alanine hawkins otransferase (ALT) measurementOrdered By: Nando Wiggins on 08-13-2024 ALT [Catalytic activity/Vol] 8 U/L <47 [facility] Serum or plasma albumin lilli urement (mass/volume)Ordered By: Nando Wiggins on 08-13-2024 Albumin [Mass/Vol] 2.8 g/dL Low 3.4-4.8 [facility] Serum or plasma alkaline penelope sphatase measurementOrdered By: Nando Wiggins on 08-13-2024 ALP [Catalytic activity/Vol] 56 U/L 40-129 [facility] Serum or plasma calcium lilli urement (mass/volume)Ordered By: Nando Wiggins on 08-13-2024 Calcium [Mass/Vol] 9.0 mg/dL 7.6-11.0 [facility] Serum or plasma urea nitroge n measurement (mass/volume)Ordered By: Nando Wiggins on 08-13-2024 Urea nitrogen [Mass/Vol] 38 mg/dL High 4-19 [facility] Sodium levelOrdered By: Deb Wiggins on 08-13-2024 Sodium [Moles/Vol] 134 mmol/L 133-145 [facility] Total proteinOrdered By: Sinan Wiggins on 08-13-2024 Protein [Mass/Vol] 6.6 g/dL 5.9-8.4 [facility] Vitamin B12 ser/plasOrdered By: Nando Wiggins on 08-13-2024 Cobalamin (Vitamin B12) [Mass/Vol] 782 pg/mL 180-914 [facility] White blood cell (WBC) count Ordered By: Nando Wiggins on 08-13-2024 WBC (Bld) [#/Vol] 8.0 10*3/uL 4.4-11.0 [facility] Absolute lymphocyte countOrd ered By: Nando Wiggins on 08-06-2024 Lymphocytes Auto (Unsp spec) [#/Vol] 1.82 10*3/uL 0.83-4.51 [facility] Anion gap in Serum or Plasma Ordered By: Nando Wiggins on 08-06-2024 Anion gap [Moles/Vol] 14 mmol/L 5-15 [facility] Automated lymphocyte count a s percentage of total leukocytesOrdered By: Nando Wiggins on 08-06-2024 Lymphocytes/100 WBC Auto (Unsp spec) 19.7 % 19-41 [facility] BUN/creatinine ratioOrdered By: Nando Wiggins on 08-06-2024 Urea nitrogen/Creatinine [Mass ratio] 11.0 mg/mg 10-20 [facility] Basophil percentageOrdered B y: Nando Wiggins on 08-06-2024 Basophils/100 WBC (Bld) 0.4 % 0-1 [facility] Carbon dioxide, total [Moles /volume] in Central venous bloodOrdered By: Nando Wiggins on 08-06-2024 CO2 [Moles/Vol] 26.0 mmol/L 21.0-32.0 [facility] Chloride assayOrdered By: Kathie Wiggins on 08-06-2024 Chloride [Moles/Vol] 92 mmol/L Low 98-108 [facility] Eosinophil percentageOrdered By: Nando Wiggins on 08-06-2024 Eosinophils/100 WBC (Bld) 2.6 % 0-5 [facility] Erythrocyte distribution wid th ratioOrdered By: Nando Wiggins on 08-06-2024 Erythrocyte distribution width (RBC) [Ratio] 16.6 % High 11.6-14.6 [facility] Erythrocyte distribution wid th standard deviationOrdered By: Nando Wiggins on 08-06-2024 Erythrocyte distribution width (RBC) [Ratio] 56.6 fl High 35.1-43.9 [facility] Glomerular filtration rate ( GFR) estimation/1.73 sq m using serum, plasma, or whole bOrdered By: Nando Wiggisn on 08-06-2024 GFR/1.73 sq M.predicted among non-blacks MDRD (S/P/Bld) [Vol rate/Area] 12 mL/min/{1.73_m2} Low >60 [facility] Hematocrit Auto (Bld) [Volum e fraction]Ordered By: Nando Wiggins on 08-06-2024 Hematocrit (Bld) [Volume fraction] 27.3 % Low 40-54 [facility] Hemoglobin measurementOrdere d By: Nando Wiggins on 08-06-2024 Hemoglobin (Bld) [Mass/Vol] 8.1 g/dL Low 13.0-16.5 [facility] Immature granulocytes/100 WB C Auto (Bld)Ordered By: Nando Brownenereida on 08-06-2024 Immature granulocytes/100 WBC (Bld) 1.000 % High 0.0-0.9 [facility] MCV (mean corpuscular volume ) determinationOrdered By: Kathiebiancasrinathwofl Edenlakshminereida on 08-06-2024 MCV (RBC) [Entitic vol] 93.5 fL 80-94 [facility] Mean corpuscular hemoglobin (MCH) determinationOrdered By: Kathiebiancasrinathwolf Edenlakshminereida on 08-06-2024 MCH (RBC) [Entitic mass] 27.7 pg 27.0-32.0 [facility] Monocyte percentageOrdered B y: Brianwolf Edenlakshminereida on 08-06-2024 Monocytes/100 WBC (Bld) 12.1 % High 0-10 [facility] Neutrophil percentageOrdered By: Kathiebiancalilian Meeklakshminereida on 08-06-2024 Neutrophils/100 WBC (Bld) 64.2 % 47-70 [facility] Platelet countOrdered By: Kathie Wiggins on 08-06-2024 Platelets (Bld) [#/Vol] 263 10*3/uL 150-450 [facility] Potassium measurement (mass/ volume)Ordered By: Kathiebiancasrinathwolf Edenlakshminereida on 08-06-2024 Potassium (Unsp spec) [Mass/Vol] 3.4 mmol/L 3.3-5.1 [facility] RBC Auto (Bld) [#/Vol]Ordere d By: Nando Brownenereida on 08-06-2024 RBC (Bld) [#/Vol] 2.92 10*6/uL Low 4.6-6.2 [facility] Serum creatinine measurement (mass/volume)Ordered By: Kathiebiancasrinathwolf Edenlakshminereida on 08-06-2024 Creatinine [Mass/Vol] 4.43 mg/dL High 0.70-1.20 [facility] Serum glucose measurement (m ass/volume)Ordered By: Kathiebiancasrinathwolf Edenlakshminereida on 08-06-2024 Glucose [Mass/Vol] 318 mg/dL High 70-99 [facility] Serum or plasma calcium lilli urement (mass/volume)Ordered By: Nando Wiggins on 08-06-2024 Calcium [Mass/Vol] 8.7 mg/dL 7.6-11.0 [facility] Serum or plasma urea nitroge n measurement (mass/volume)Ordered By: Nando Wiggins on 08-06-2024 Urea nitrogen [Mass/Vol] 49 mg/dL High 4-19 [facility] Sodium levelOrdered By: Deb Wiggins on 08-06-2024 Sodium [Moles/Vol] 131 mmol/L Low 133-145 [facility] White blood cell (WBC) count Ordered By: Kathiebiancasrinathwolf Edenlakshminereida on 08-06-2024 WBC (Bld) [#/Vol] 9.3 10*3/uL 4.4-11.0 [facility] Absolute lymphocyte countOrd ered By: Des Garcia on 08-01-2024 Lymphocytes Auto (Unsp spec) [#/Vol] 1.79 10*3/uL 0.83-4.51 [facility] Automated blood erythrocyte countOrdered By: Des Garcia on 08-01-2024 RBC (Bld) [#/Vol] 2.95 10*6/uL Low 4.6-6.2 [facility] Comment on above: Performed By: #### L 100.0100 ####[facility] [address] [place], [place], [id number] Automated blood hematocrit ( percentage)Ordered By: Des Garcia on 08-01-2024 Hematocrit (Bld) [Volume fraction] 27.6 % Low 40-54 [facility] Comment on above: Performed By: #### L 100.0100 ####[facility] [address] [facility]. [place], [place], [id number] Automated lymphocyte count a s percentage of total leukocytesOrdered By: Des Garcia on 08-01-2024 Lymphocytes/100 WBC Auto (Unsp spec) 20.9 % 19-41 [facility] Basophil percentageOrdered B y: Des Garcia on 08-01-2024 Basophils/100 WBC (Bld) 0.7 % Normal 0-1 [facility] Comment on above: Performed By: #### L 100.0100 ####[facility] [address] [place], [address] CBC W/Diff, Automatedon 07-21 Absolute Lymph 1.79 X10 3/uL Normal 0.83-4.51 [facility] Comment on above: Performed By: #### L 100.0100 ####[facility] [address] [place], [address] Absolute Neut 5.3 X10 3/uL Normal 2.0-7.7 [facility] Comment on above: Performed By: #### L 100.0100 ####[facility] [address] [place], [address] IG% 0.500 Normal 0.0-0.9 [facility] Comment on above: Result Comment: IG% - Immature Granulocytes (promyelocytes, myelocytes andmetamyelocytes) > 1% indicates that a LEFT SHIFT is Present. Performed By: #### L 100.0100 ####[facility] [address] [place], [address] Lymphocytes/100 WBC (Bld) 20.9 % Normal 19-41 [facility] Comment on above: Performed By: #### L 100.0100 ####[facility] [address] [place], [address] MCHC (RBC) [Mass/Vol] 29.3 g/dL Low 32-36 [facility] Comment on above: Performed By: #### L 100.0100 ####[facility] [address] [place], [address] Nucleated RBC (Bld) [#/Vol] 0 10*3/uL Normal 0-5 [facility] Comment on above: Performed By: #### L 100.0100 ####[facility] [address] [place], [place], [id number] Platelet mean volume (Bld) [Entitic vol] 10.6 fL Normal 6.2-12.0 [facility] Comment on above: Performed By: #### L 100.0100 ####[facility] [address] [place], [place], [phone] RDW SD 57.8 fl High 35.1-43.9 [facility] Comment on above: Performed By: #### L 100.0100 ####[facility] [address] [place], [address] Emergency Department Summary on 08-01-2024 Emergency Department Summary Normal [facility] Eosinophil percentageOrdered By: Des Garcia on 08-01-2024 Eosinophils/100 WBC (Bld) 3.9 % Normal 0-5 [facility] Comment on above: Performed By: #### L 100.0100 ####[facility] [address] [place], [place], [phone] Erythrocyte distribution wid th ratioOrdered By: Des Garcia on 08-01-2024 Erythrocyte distribution width (RBC) [Ratio] 16.9 % High 11.6-14.6 [facility] Comment on above: Performed By: #### L 100.0100 ####[facility] [address] [place], [place], [id number] Erythrocyte distribution wid th standard deviationOrdered By: Des Garcia on 08-01-2024 Erythrocyte distribution width (RBC) [Ratio] 57.8 fl High 35.1-43.9 [facility] Foot min 3 Viewson 5 Foot min 3 Views Normal [facility] Hemoglobin measurementOrdere d By: Des Garcia on 08-01-2024 Hemoglobin (Bld) [Mass/Vol] 8.1 g/dL Low 13.0-16.5 [facility] Comment on above: Performed By: #### L 100.0100 ####[facility] [address] [place], [address] Immature granulocytes/100 WB C Auto (Bld)Ordered By: Des Garcia on 08-01-2024 Immature granulocytes/100 WBC (Bld) 0.500 % 0.0-0.9 [facility] MCV (mean corpuscular volume ) determinationOrdered By: Des Garcia on 08-01-2024 MCV (RBC) [Entitic vol] 93.6 fL Normal 80-94 [facility] Comment on above: Performed By: #### L 100.0100 ####[facility] [address] [place], [address] Mean corpuscular hemoglobin (MCH) determinationOrdered By: Des Garcia on 08-01-2024 MCH (RBC) [Entitic mass] 27.5 pg Normal 27.0-32.0 [facility] Comment on above: Performed By: #### L 100.0100 ####[facility] [address] [place], [address] Monocyte percentageOrdered B y: Des Garcia on 08-01-2024 Monocytes/100 WBC (Bld) 12.3 % High 0-10 [facility] Comment on above: Performed By: #### L 100.0100 ####[facility] [address] [place], [address] Neutrophil percentageOrdered By: Des Garcia on 08-01-2024 Neutrophils/100 WBC (Bld) 61.7 % Normal 47-70 [facility] Comment on above: Performed By: #### L 100.0100 ####[facility] [address] [place], [address] Platelet countOrdered By: Kana Garcia on 08-01-2024 Platelets (Bld) [#/Vol] 290 10*3/uL Normal 150-450 [facility] Comment on above: Performed By: #### L 100.0100 ####[facility] [address] [place], [place], [phone] White blood cell (WBC) count Ordered By: Des Garcia on 08-01-2024 WBC (Bld) [#/Vol] 8.6 10*3/uL Normal 4.4-11.0 [facility] Comment on above: Performed By: #### L 100.0100 ####[facility] [address] [place], [address] Absolute lymphocyte countOrd ered By: Nando Wiggins on 07-30-2024 Lymphocytes Auto (Unsp spec) [#/Vol] 1.74 10*3/uL 0.83-4.51 [facility] Anion gap in Serum or Plasma Ordered By: Nando Wiggins on 07-30-2024 Anion gap [Moles/Vol] 16 mmol/L High 5-15 [facility] Automated lymphocyte count a s percentage of total leukocytesOrdered By: Nando Wiggins on 07-30-2024 Lymphocytes/100 WBC Auto (Unsp spec) 19.2 % 19-41 [facility] BUN/creatinine ratioOrdered By: Nando Wiggins on 07-30-2024 Urea nitrogen/Creatinine [Mass ratio] 8.4 mg/mg Low 10-20 [facility] Basophil percentageOrdered B y: Nando Wiggins on 07-30-2024 Basophils/100 WBC (Bld) 0.6 % 0-1 [facility] Carbon dioxide, total [Moles /volume] in Central venous bloodOrdered By: Nando Wiggins on 07-30-2024 CO2 [Moles/Vol] 26.4 mmol/L 21.0-32.0 [facility] Chloride assayOrdered By: Kathie Wiggins on 07-30-2024 Chloride [Moles/Vol] 91 mmol/L Low 98-108 [facility] Eosinophil percentageOrdered By: Nando Wiggins on 07-30-2024 Eosinophils/100 WBC (Bld) 2.8 % 0-5 [facility] Erythrocyte distribution wid th ratioOrdered By: Nando Wiggins on 07-30-2024 Erythrocyte distribution width (RBC) [Ratio] 17.2 % High 11.6-14.6 [facility] Erythrocyte distribution wid th standard deviationOrdered By: Nando Wiggins on 07-30-2024 Erythrocyte distribution width (RBC) [Ratio] 58.1 fl High 35.1-43.9 [facility] Glomerular filtration rate ( GFR) estimation/1.73 sq m using serum, plasma, or whole bOrdered By: Nando Wiggins on 07-30-2024 GFR/1.73 sq M.predicted among non-blacks MDRD (S/P/Bld) [Vol rate/Area] 13 mL/min/{1.73_m2} Low >60 [facility] Hematocrit Auto (Bld) [Volum e fraction]Ordered By: Nando Wiggins on 07-30-2024 Hematocrit (Bld) [Volume fraction] 26.5 % Low 40-54 [facility] Hemoglobin measurementOrdere d By: Nando Wiggins on 07-30-2024 Hemoglobin (Bld) [Mass/Vol] 8.1 g/dL Low 13.0-16.5 [facility] Immature granulocytes/100 WB C Auto (Bld)Ordered By: Nando Wiggins on 07-30-2024 Immature granulocytes/100 WBC (Bld) 0.800 % 0.0-0.9 [facility] MCV (mean corpuscular volume ) determinationOrdered By: Nando Wiggins on 07-30-2024 MCV (RBC) [Entitic vol] 92.3 fL 80-94 [facility] Mean corpuscular hemoglobin (MCH) determinationOrdered By: Nando Wiggins on 07-30-2024 MCH (RBC) [Entitic mass] 28.2 pg 27.0-32.0 [facility] Monocyte percentageOrdered B y: Nando Wiggins on 07-30-2024 Monocytes/100 WBC (Bld) 9.2 % 0-10 [facility] Neutrophil percentageOrdered By: Nando Wiggins on 07-30-2024 Neutrophils/100 WBC (Bld) 67.4 % 47-70 [facility] Platelet countOrdered By: Kathie fili Meekcheko on 07-30-2024 Platelets (Bld) [#/Vol] 334 10*3/uL 150-450 [facility] Potassium measurement (mass/ volume)Ordered By: Kathiebiancasrinathwolf Edenlakshminereida on 07-30-2024 Potassium (Unsp spec) [Mass/Vol] 3.6 mmol/L 3.3-5.1 [facility] RBC Auto (Bld) [#/Vol]Ordere d By: Nando Meekcheko on 07-30-2024 RBC (Bld) [#/Vol] 2.87 10*6/uL Low 4.6-6.2 [facility] Serum creatinine measurement (mass/volume)Ordered By: Kathiebiancasrinathwolf Edenlakshminereida on 07-30-2024 Creatinine [Mass/Vol] 4.20 mg/dL High 0.70-1.20 [facility] Serum glucose measurement (m ass/volume)Ordered By: Kathiebiancasrinathwolf Edenlakshminereida on 07-30-2024 Glucose [Mass/Vol] 173 mg/dL High 70-99 [facility] Serum or plasma calcium lilli urement (mass/volume)Ordered By: Kathiebiancasrinathwolf dEenlakshminereida on 07-30-2024 Calcium [Mass/Vol] 8.5 mg/dL 7.6-11.0 [facility] Serum or plasma urea nitroge n measurement (mass/volume)Ordered By: Nando Edenlakshminereida on 07-30-2024 Urea nitrogen [Mass/Vol] 35 mg/dL High 4-19 [facility] Sodium levelOrdered By: Deb quintana Meeklakshminereida on 07-30-2024 Sodium [Moles/Vol] 133 mmol/L 133-145 [facility] White blood cell (WBC) count Ordered By: Kathiefili Edenlakshminereida on 07-30-2024 WBC (Bld) [#/Vol] 9.1 10*3/uL 4.4-11.0 [facility] Acid Fast Bacillus Cultureon 07-25-2024 tAFBC Normal [facility] Comment on above: Performed By: #### M 600.2200, M300.2000, M100.4001, M300.3000, M100.2000, M100.3000, M600.2000 ####[facility] [address] [place], [address] Acid Fast Bacillus Smear/Flu oron 07-25-2024 tafb Normal [facility] Comment on above: Performed By: #### M 600.2200, M300.2000, M100.4001, M300.3000, M100.2000, M100.3000, M600.2000 ####[facility] [address] [place], [address] Culture, Fungus 8482on 07-25 CUF Normal [facility] Comment on above: Performed By: #### M 600.2200, M300.2000, M100.4001, M300.3000, M100.2000, M100.3000, M600.2000 ####[facility] [address] [place], [address] Fungus Stain 8136on 07-26-19 25 FUNST Normal [facility] Comment on above: Performed By: #### M 600.2200, M300.2000, M100.4001, M300.3000, M100.2000, M100.3000, M600.2000 ####[facility] [address] [place], [address] Absolute lymphocyte countOrd ered By: Nando Wiggins on 07-23-2024 Lymphocytes Auto (Unsp spec) [#/Vol] 2.13 10*3/uL 0.83-4.51 [facility] Automated lymphocyte count a s percentage of total leukocytesOrdered By: Nando Wiggins on 07-23-2024 Lymphocytes/100 WBC Auto (Unsp spec) 17.3 % Low 19-41 [facility] BUN/creatinine ratioOrdered By: Nando Wiggins on 07-23-2024 Urea nitrogen/Creatinine [Mass ratio] 14.6 mg/mg 10-20 [facility] Basic Metabolic Profile (BMP )on 07-23-2024 BUN Normal 7-18 [facility] Comment on above: Result Comment: Canc elled via OM: Order cancelled - Patient discharged Performed By: #### L 100.0100, L500.2500 ####[facility] [address] [place], [address] BUN/CRE Normal 10-20 [facility] Comment on above: Result Comment: Canc elled via OM: Order cancelled - Patient discharged Performed By: #### L 100.0100, L500.2500 ####[facility] [address] [place], [address] Calcium Normal 8.5-10.1 [facility] Comment on above: Result Comment: Canc elled via OM: Order cancelled - Patient discharged Performed By: #### L 100.0100, L500.2500 ####[facility] [address] [place], [address] CL Normal 98-107 [facility] Comment on above: Result Comment: Canc elled via OM: Order cancelled - Patient discharged Performed By: #### L 100.0100, L500.2500 ####[facility] [address] [place], [address] CO2 Normal 21.0-32.0 [facility] Comment on above: Result Comment: Canc elled via OM: Order cancelled - Patient discharged Performed By: #### L 100.0100, L500.2500 ####[facility] [address] [place], [address] CREAT,SERUM Normal 0.70-1.30 [facility] Comment on above: Result Comment: Canc elled via OM: Order cancelled - Patient discharged Performed By: #### L 100.0100, L500.2500 ####[facility] [address] [place], [address] eGFR Normal >60 [facility] Comment on above: Result Comment: Canc elled via OM: Order cancelled - Patient discharged Performed By: #### L 100.0100, L500.2500 ####[facility] [address] [place], [address] EST GFR - AA Normal >60 [facility] Comment on above: Result Comment: Canc elled via OM: Order cancelled - Patient discharged Performed By: #### L 100.0100, L500.2500 ####[facility] [address] [place], [address] GAP Normal 5-15 [facility] Comment on above: Result Comment: Canc elled via OM: Order cancelled - Patient discharged Performed By: #### L 100.0100, L500.2500 ####[facility] [address] [place], [address] GLU Normal 74-106 [facility] Comment on above: Result Comment: Canc elled via OM: Order cancelled - Patient discharged Performed By: #### L 100.0100, L500.2500 ####[facility] [address] [place], [address] Potassium Normal 3.5-5.1 [facility] Comment on above: Result Comment: Canc elled via OM: Order cancelled - Patient discharged Performed By: #### L 100.0100, L500.2500 ####[facility] [address] [place], [address] Basic Metabolic Profile (BMP) Normal 136-145 [facility] Comment on above: Result Comment: Canc elled via OM: Order cancelled - Patient discharged Performed By: #### L 100.0100, L500.2500 ####[facility] [address] [place], [address] Basophil percentageOrdered B y: Nando Wiggins on 07-23-2024 Basophils/100 WBC (Bld) 0.7 % 0-1 [facility] CBC W/Diff, Automatedon 03-0 Absolute Neut Normal 2.0-7.7 [facility] Comment on above: Result Comment: Canc elled via OM: Order cancelled - Patient discharged Performed By: #### L 100.0100, L500.2500 ####[facility] [address] [place], [address] HCT Normal 40-54 [facility] Comment on above: Result Comment: Canc elled via OM: Order cancelled - Patient discharged Performed By: #### L 100.0100, L500.2500 ####[facility] [address] [place], [address] HGB Normal 13.0-16.5 [facility] Comment on above: Result Comment: Canc elled via OM: Order cancelled - Patient discharged Performed By: #### L 100.0100, L500.2500 ####[facility] [address] [place], [address] MCH Normal 27.0-32.0 [facility] Comment on above: Result Comment: Canc elled via OM: Order cancelled - Patient discharged Performed By: #### L 100.0100, L500.2500 ####[facility] [address] [place], [address] MCHC Normal 32-36 [facility] Comment on above: Result Comment: Canc elled via OM: Order cancelled - Patient discharged Performed By: #### L 100.0100, L500.2500 ####[facility] [address] [place], [address] MCV Normal 80-94 [facility] Comment on above: Result Comment: Canc elled via OM: Order cancelled - Patient discharged Performed By: #### L 100.0100, L500.2500 ####[facility] [address] [place], [address] NEUT% Normal 47-70 [facility] Comment on above: Result Comment: Canc elled via OM: Order cancelled - Patient discharged Performed By: #### L 100.0100, L500.2500 ####[facility] [address] [place], [address] PLT Normal 150-450 [facility] Comment on above: Result Comment: Canc elled via OM: Order cancelled - Patient discharged Performed By: #### L 100.0100, L500.2500 ####[facility] [address] [place], [address] RBC Normal 4.6-6.2 [facility] Comment on above: Result Comment: Canc elled via OM: Order cancelled - Patient discharged Performed By: #### L 100.0100, L500.2500 ####[facility] [address] [place], [address] RDW CV Normal 11.6-14.6 [facility] Comment on above: Result Comment: Canc elled via OM: Order cancelled - Patient discharged Performed By: #### L 100.0100, L500.2500 ####[facility] [address] [place], [address] RDW SD Normal 35.1-43.9 [facility] Comment on above: Result Comment: Canc elled via OM: Order cancelled - Patient discharged Performed By: #### L 100.0100, L500.2500 ####[facility] [address] [place], [address] WBC Normal 4.4-11.0 [facility] Comment on above: Result Comment: Canc elled via OM: Order cancelled - Patient discharged Performed By: #### L 100.0100, L500.2500 ####[facility] [address] [place], [address] Carbon dioxide measurementOr dered By: Nando Wiggins on 07-23-2024 CO2 [Moles/Vol] 27.0 mmol/L 22.0-29.0 [facility] Chloride measurementOrdered By: Nando Wiggins on 07-23-2024 Chloride [Moles/Vol] 95 mmol/L Low 96-108 [facility] Comprehensive Metabolic Prof ilon 07-23-2024 ALB Normal 3.4-4.8 [facility] Comment on above: Result Comment: NOT DRAWN PATIENT DIDN'T COME TO LAB Performed By: #### L 500.4050 ####[facility] [address] [place], [address] ALK PHOS Normal 40-129 [facility] Comment on above: Result Comment: NOT DRAWN PATIENT DIDN'T COME TO LAB Performed By: #### L 500.4050 ####[facility] [address] [place], [address] ALT Normal <=46 [facility] Comment on above: Result Comment: NOT DRAWN PATIENT DIDN'T COME TO LAB Performed By: #### L 500.4050 ####[facility] [address] [place], [address] Anion Gap Normal 5-15 [facility] Comment on above: Result Comment: NOT DRAWN PATIENT DIDN'T COME TO LAB Performed By: #### L 500.4050 ####[facility] [address] [place], [address] AST Normal <=37 [facility] Comment on above: Result Comment: NOT DRAWN PATIENT DIDN'T COME TO LAB Performed By: #### L 500.4050 ####[facility] [address] [place], [address] Chloride Normal 96-108 [facility] Comment on above: Result Comment: NOT DRAWN PATIENT DIDN'T COME TO LAB Performed By: #### L 500.4050 ####[facility] [address] [place], [address] Sodium Normal 133-145 [facility] Comment on above: Result Comment: NOT DRAWN PATIENT DIDN'T COME TO LAB Performed By: #### L 500.4050 ####[facility] [address] [place], [address] T BILI Normal 0.00-1.30 [facility] Comment on above: Result Comment: NOT DRAWN PATIENT DIDN'T COME TO LAB Performed By: #### L 500.4050 ####[facility] [address] [place], [address] T PROT Normal 5.9-8.4 [facility] Comment on above: Result Comment: NOT DRAWN PATIENT DIDN'T COME TO LAB Performed By: #### L 500.4050 ####[facility] [address] [place], [address] Culture, Anaerobic Any Sourc reed 07-23-2024 CUAN Normal [facility] Comment on above: Performed By: #### M 100.2910, M100.4001, M100.2000 ####[facility] [address] [place], [address] Eosinophil percentageOrdered By: Nando Wiggins on 07-23-2024 Eosinophils/100 WBC (Bld) 1.3 % 0-5 [facility] Erythrocyte distribution wid th ratioOrdered By: Nando Wiggins on 07-23-2024 Erythrocyte distribution width (RBC) [Ratio] 17.1 % High 11.6-14.6 [facility] Erythrocyte distribution wid th standard deviationOrdered By: Nando Wiggins on 07-23-2024 Erythrocyte distribution width (RBC) [Ratio] 58.3 fl High 35.1-43.9 [facility] Glomerular filtration rate ( GFR) estimation/1.73 sq m using serum, plasma, or whole bOrdered By: Nando Wiggins on 07-23-2024 GFR/1.73 sq M.predicted among non-blacks MDRD (S/P/Bld) [Vol rate/Area] 13 mL/min/{1.73_m2} Low >60 [facility] Hematocrit Auto (Bld) [Volum e fraction]Ordered By: Nando Wiggins on 07-23-2024 Hematocrit (Bld) [Volume fraction] 26.1 % Low 40-54 [facility] Hemoglobin measurementOrdere d By: Nando Wiggins on 07-23-2024 Hemoglobin (Bld) [Mass/Vol] 7.8 g/dL Low 13.0-16.5 [facility] Immature granulocytes/100 WB C Auto (Bld)Ordered By: Nando Wiggins on 07-23-2024 Immature granulocytes/100 WBC (Bld) 2.100 % High 0.0-0.9 [facility] MCV (mean corpuscular volume ) determinationOrdered By: Nando Wiggins on 07-23-2024 MCV (RBC) [Entitic vol] 93.5 fL 80-94 [facility] Mean corpuscular hemoglobin (MCH) determinationOrdered By: Nando Wiggins on 07-23-2024 MCH (RBC) [Entitic mass] 28.0 pg 27.0-32.0 [facility] Monocyte percentageOrdered B y: Nando Wiggins on 07-23-2024 Monocytes/100 WBC (Bld) 7.7 % 0-10 [facility] Neutrophil percentageOrdered By: Nando Wiggins on 07-23-2024 Neutrophils/100 WBC (Bld) 70.9 % High 47-70 [facility] Platelet countOrdered By: Kathie Wiggins on 07-23-2024 Platelets (Bld) [#/Vol] 451 10*3/uL High 150-450 [facility] RBC Auto (Bld) [#/Vol]Ordere d By: Nando Wiggins on 07-23-2024 RBC (Bld) [#/Vol] 2.79 10*6/uL Low 4.6-6.2 [facility] Serum creatinine measurement (mass/volume)Ordered By: Nando Wiggins on 07-23-2024 Creatinine [Mass/Vol] 4.11 mg/dL High 0.70-1.20 [facility] Serum glucose measurement (m ass/volume)Ordered By: Nando Wiggins on 07-23-2024 Glucose [Mass/Vol] 147 mg/dL High 70-99 [facility] Serum or plasma anion gap de termination (moles/volume)Ordered By: Nando Wiggins on 07-23-2024 Anion gap [Moles/Vol] 12 mmol/L 5-15 [facility] Serum or plasma calcium lilli urement (mass/volume)Ordered By: Nando Wiggins on 07-23-2024 Calcium [Mass/Vol] 8.4 mg/dL 7.6-11.0 [facility] Serum or plasma potassium me asurementOrdered By: Nando Wiggins on 07-23-2024 Potassium [Moles/Vol] 5.0 mmol/L 3.3-5.1 [facility] Serum or plasma sodium measu rement (moles/volume)Ordered By: Nando Wiggins on 07-23-2024 Sodium [Moles/Vol] 134 mmol/L 133-145 [facility] Serum or plasma urea nitroge n measurement (mass/volume)Ordered By: Nando Wiggins on 07-23-2024 Urea nitrogen [Mass/Vol] 60 mg/dL High 4-19 [facility] White blood cell (WBC) count Ordered By: Nando Wiggins on 07-23-2024 WBC (Bld) [#/Vol] 12.3 10*3/uL High 4.4-11.0 [facility] Wound Ctr History AND Physic ariella 07-23-2024 Wound Ctr History & Physical Normal [facility] Basic Metabolic Profile (BMP )on 07-22-2024 CL Normal 98-107 [facility] Comment on above: Result Comment: Canc elled via OM: Order cancelled - Patient discharged Performed By: #### L 100.0100, L500.2500 ####[facility] [address] [place], [address] EST GFR - AA Normal >60 [facility] Comment on above: Result Comment: Canc elled via OM: Order cancelled - Patient discharged Performed By: #### L 100.0100, L500.2500 ####[facility] [address] [place], [address] GAP Normal 5-15 [facility] Comment on above: Result Comment: Canc elled via OM: Order cancelled - Patient discharged Performed By: #### L 100.0100, L500.2500 ####[facility] [address] [place], [address] Basic Metabolic Profile (BMP) Normal 136-145 [facility] Comment on above: Result Comment: Canc elled via OM: Order cancelled - Patient discharged Performed By: #### L 100.0100, L500.2500 ####[facility] [address] [place], [address] CBC W/Diff, Automatedon 03-0 -2024 Absolute Neut Normal 2.0-7.7 [facility] Comment on above: Result Comment: Canc elled via OM: Order cancelled - Patient discharged Performed By: #### L 100.0100, L500.2500 ####[facility] [address] [place], [address] HCT Normal 40-54 [facility] Comment on above: Result Comment: Canc elled via OM: Order cancelled - Patient discharged Performed By: #### L 100.0100, L500.2500 ####[facility] [address] [place], [address] HGB Normal 13.0-16.5 [facility] Comment on above: Result Comment: Canc elled via OM: Order cancelled - Patient discharged Performed By: #### L 100.0100, L500.2500 ####[facility] [address] [place], [address] MCH Normal 27.0-32.0 [facility] Comment on above: Result Comment: Canc elled via OM: Order cancelled - Patient discharged Performed By: #### L 100.0100, L500.2500 ####[facility] [address] [place], [address] MCHC Normal 32-36 [facility] Comment on above: Result Comment: Canc elled via OM: Order cancelled - Patient discharged Performed By: #### L 100.0100, L500.2500 ####[facility] [address] [place], [address] MCV Normal 80-94 [facility] Comment on above: Result Comment: Canc elled via OM: Order cancelled - Patient discharged Performed By: #### L 100.0100, L500.2500 ####[facility] [address] [place], [address] NEUT% Normal 47-70 [facility] Comment on above: Result Comment: Canc elled via OM: Order cancelled - Patient discharged Performed By: #### L 100.0100, L500.2500 ####[facility] [address] [place], [address] PLT Normal 150-450 [facility] Comment on above: Result Comment: Canc elled via OM: Order cancelled - Patient discharged Performed By: #### L 100.0100, L500.2500 ####[facility] [address] [place], [address] RBC Normal 4.6-6.2 [facility] Comment on above: Result Comment: Canc elled via OM: Order cancelled - Patient discharged Performed By: #### L 100.0100, L500.2500 ####[facility] [address] [place], [address] RDW CV Normal 11.6-14.6 [facility] Comment on above: Result Comment: Canc elled via OM: Order cancelled - Patient discharged Performed By: #### L 100.0100, L500.2500 ####[facility] [address] [place], [address] RDW SD Normal 35.1-43.9 [facility] Comment on above: Result Comment: Canc elled via OM: Order cancelled - Patient discharged Performed By: #### L 100.0100, L500.2500 ####[facility] [address] [place], [address] WBC Normal 4.4-11.0 [facility] Comment on above: Result Comment: Canc elled via OM: Order cancelled - Patient discharged Performed By: #### L 100.0100, L500.2500 ####[facility] [address] [place], [address] Comprehensive Metabolic Prof ilon 07-22-2024 BUN Normal 7-18 [facility] Comment on above: Result Comment: NOT DRAWN PATIENT DIDN'T COME TO LAB Performed By: #### L 500.4050 ####[facility] [address] [place], [address] Result Comment: Canc elled via OM: Order cancelled - Patient discharged Performed By: #### L 100.0100, L500.2500 ####[facility] [address] [place], [address] BUN/CRE Normal 10-20 [facility] Comment on above: Result Comment: NOT DRAWN PATIENT DIDN'T COME TO LAB Performed By: #### L 500.4050 ####[facility] [address] [place], [address] Result Comment: Canc elled via OM: Order cancelled - Patient discharged Performed By: #### L 100.0100, L500.2500 ####[facility] [address] [place], [address] Calcium Normal 8.5-10.1 [facility] Comment on above: Result Comment: NOT DRAWN PATIENT DIDN'T COME TO LAB Performed By: #### L 500.4050 ####[facility] [address] [place], [address] Result Comment: Canc elled via OM: Order cancelled - Patient discharged Performed By: #### L 100.0100, L500.2500 ####[facility] [address] [place], [address] CO2 Normal 21.0-32.0 [facility] Comment on above: Result Comment: NOT DRAWN PATIENT DIDN'T COME TO LAB Performed By: #### L 500.4050 ####[facility] [address] [place], [address] Result Comment: Canc elled via OM: Order cancelled - Patient discharged Performed By: #### L 100.0100, L500.2500 ####[facility] [address] [place], [address] CREAT,SERUM Normal 0.70-1.30 [facility] Comment on above: Result Comment: NOT DRAWN PATIENT DIDN'T COME TO LAB Performed By: #### L 500.4050 ####[facility] [address] [place], [address] Result Comment: Canc elled via OM: Order cancelled - Patient discharged Performed By: #### L 100.0100, L500.2500 ####[facility] [address] [place], [address] eGFR Normal >60 [facility] Comment on above: Result Comment: NOT DRAWN PATIENT DIDN'T COME TO LAB Performed By: #### L 500.4050 ####[facility] [address] [place], [address] Result Comment: Canc elled via OM: Order cancelled - Patient discharged Performed By: #### L 100.0100, L500.2500 ####[facility] [address] [place], [address] GLU Normal 74-106 [facility] Comment on above: Result Comment: NOT DRAWN PATIENT DIDN'T COME TO LAB Performed By: #### L 500.4050 ####[facility] [address] [place], [address] Result Comment: Canc elled via OM: Order cancelled - Patient discharged Performed By: #### L 100.0100, L500.2500 ####[facility] [address] [place], [address] Potassium Normal 3.5-5.1 [facility] Comment on above: Result Comment: NOT DRAWN PATIENT DIDN'T COME TO LAB Performed By: #### L 500.4050 ####[facility] [address] [place], [address] Result Comment: Canc elled via OM: Order cancelled - Patient discharged Performed By: #### L 100.0100, L500.2500 ####[facility] [address] [place], [address] Culture, Blood (WB)on 2024 CUB No growth in 5 days. Normal [facility] Comment on above: Performed By: #### M 200.1000 ####[facility] [address] [place], [address] Basic Metabolic Profile (BMP )on 07-21-2024 BUN Normal 7-18 [facility] Comment on above: Result Comment: Canc elled via OM: Order cancelled - Patient discharged Performed By: #### L 100.0100, L500.2500 ####[facility] [address] [place], [address] BUN/CRE Normal 10-20 [facility] Comment on above: Result Comment: Canc elled via OM: Order cancelled - Patient discharged Performed By: #### L 100.0100, L500.2500 ####[facility] [address] [place], [address] Calcium Normal 8.5-10.1 [facility] Comment on above: Result Comment: Canc elled via OM: Order cancelled - Patient discharged Performed By: #### L 100.0100, L500.2500 ####[facility] [address] [place], [address] CL Normal 98-107 [facility] Comment on above: Result Comment: Canc elled via OM: Order cancelled - Patient discharged Performed By: #### L 100.0100, L500.2500 ####[facility] [address] [place], [address] CO2 Normal 21.0-32.0 [facility] Comment on above: Result Comment: Canc elled via OM: Order cancelled - Patient discharged Performed By: #### L 100.0100, L500.2500 ####[facility] [address] [place], [address] CREAT,SERUM Normal 0.70-1.30 [facility] Comment on above: Result Comment: Canc elled via OM: Order cancelled - Patient discharged Performed By: #### L 100.0100, L500.2500 ####[facility] [address] [place], [address] eGFR Normal >60 [facility] Comment on above: Result Comment: Canc elled via OM: Order cancelled - Patient discharged Performed By: #### L 100.0100, L500.2500 ####[facility] [address] [place], [address] EST GFR - AA Normal >60 [facility] Comment on above: Result Comment: Canc elled via OM: Order cancelled - Patient discharged Performed By: #### L 100.0100, L500.2500 ####[facility] [address] [place], [address] GAP Normal 5-15 [facility] Comment on above: Result Comment: Canc elled via OM: Order cancelled - Patient discharged Performed By: #### L 100.0100, L500.2500 ####[facility] [address] [place], [address] GLU Normal 74-106 [facility] Comment on above: Result Comment: Canc elled via OM: Order cancelled - Patient discharged Performed By: #### L 100.0100, L500.2500 ####[facility] [address] [place], [address] Potassium Normal 3.5-5.1 [facility] Comment on above: Result Comment: Canc elled via OM: Order cancelled - Patient discharged Performed By: #### L 100.0100, L500.2500 ####[facility] [address] [place], [address] Basic Metabolic Profile (BMP) Normal 136-145 [facility] Comment on above: Result Comment: Canc elled via OM: Order cancelled - Patient discharged Performed By: #### L 100.0100, L500.2500 ####[facility] [address] [place], [address] CBC W/Diff, Automatedon 03-0 Absolute Neut Normal 2.0-7.7 [facility] Comment on above: Result Comment: Canc elled via OM: Order cancelled - Patient discharged Performed By: #### L 100.0100, L500.2500 ####[facility] [address] [place], [address] HCT Normal 40-54 [facility] Comment on above: Result Comment: Canc elled via OM: Order cancelled - Patient discharged Performed By: #### L 100.0100, L500.2500 ####[facility] [address] [place], [address] HGB Normal 13.0-16.5 [facility] Comment on above: Result Comment: Canc elled via OM: Order cancelled - Patient discharged Performed By: #### L 100.0100, L500.2500 ####[facility] [address] [place], [address] MCH Normal 27.0-32.0 [facility] [facility] Comment on above: Result Comment: Canc elled via OM: Order cancelled - Patient discharged Performed By: #### L 100.0100, L500.2500 ####[facility] [address] [place], [address] MCHC Normal 32-36 [facility] Comment on above: Result Comment: Canc elled via OM: Order cancelled - Patient discharged Performed By: #### L 100.0100, L500.2500 ####[facility] [address] [place], [address] MCV Normal 80-94 [facility] Comment on above: Result Comment: Canc elled via OM: Order cancelled - Patient discharged Performed By: #### L 100.0100, L500.2500 ####[facility] [address] [place], [address] NEUT% Normal 47-70 [facility] Comment on above: Result Comment: Canc elled via OM: Order cancelled - Patient discharged Performed By: #### L 100.0100, L500.2500 ####[facility] [address] [place], [address] PLT Normal 150-450 [facility] Comment on above: Result Comment: Canc elled via OM: Order cancelled - Patient discharged Performed By: #### L 100.0100, L500.2500 ####[facility] [address] [place], [address] RBC Normal 4.6-6.2 [facility] Comment on above: Result Comment: Canc elled via OM: Order cancelled - Patient discharged Performed By: #### L 100.0100, L500.2500 ####[facility] [address] [place], [address] RDW CV Normal 11.6-14.6 [facility] Comment on above: Result Comment: Canc elled via OM: Order cancelled - Patient discharged Performed By: #### L 100.0100, L500.2500 ####[facility] [address] [place], [address] RDW SD Normal 35.1-43.9 [facility] Comment on above: Result Comment: Canc elled via OM: Order cancelled - Patient discharged Performed By: #### L 100.0100, L500.2500 ####[facility] [address] [place], [address] WBC Normal 4.4-11.0 [facility] Comment on above: Result Comment: Canc elled via OM: Order cancelled - Patient discharged Performed By: #### L 100.0100, L500.2500 ####[facility] [address] [place], [address] Culture, Anaerobic Any Sourc reed 07-21-2024 CUAN UNK UNK Post-lavage Right lower extremity No anaerobic bacteria isolated. [facility] Comment on above: Performed By: #### M 100.2000, M100.3000, M100.4001 ####[facility] [address] [place], [address] CUAN UNK UNK Pre-lavage right lower extremity - collected in [place] No anaerobic bacteria isolated. Normal [facility] Comment on above: Performed By: #### M 100.4001, M100.3000, M100.2000 ####[facility] [address] [place], [address] Culture, Blood (WB)on 2024 CUB No growth in 5 days. Normal [facility] Comment on above: Performed By: #### M 200.1000 ####[facility] [address] [place], [address] Absolute lymphocyte countOrd ered By: Jayla Osuna on 07-20-2024 Lymphocytes Auto (Unsp spec) [#/Vol] 1.89 10*3/uL 0.83-4.51 [facility] Automated lymphocyte count a s percentage of total leukocytesOrdered By: Jayla Osuna on 07-20-2024 Lymphocytes/100 WBC Auto (Unsp spec) 14.9 % Low 19-41 [facility] BUN/creatinine ratioOrdered By: Margarette Godniez on 07-20-2024 Urea nitrogen/Creatinine [Mass ratio] 16.1 mg/mg 10-20 [facility] Basic Metabolic Profile (BMP )on 07-20-2024 Anion gap [Moles/Vol] 12 mmol/L Normal 5-15 [facility] Comment on above: Performed By: #### L 500.2500 ####[facility] [address] [place], [address] BUN/CRE 16.1 RATIO Normal 10-20 [facility] Comment on above: Performed By: #### L 500.2500 ####[facility] [address] [place], [address] Calcium [Mass/Vol] 8.7 mg/dL Normal 7.6-11.0 [facility] Comment on above: Performed By: #### L 500.2500 ####[facility] [address] [place], [address] Chloride [Moles/Vol] 97 mmol/L Normal 96-108 [facility] Comment on above: Performed By: #### L 500.2500 ####[facility] [address] [place], [address] CO2 [Moles/Vol] 22.0 mmol/L Normal 22.0-29.0 [facility] Comment on above: Performed By: #### L 500.2500 ####[facility] [address] [place], [address] Creatinine [Mass/Vol] 4.24 mg/dL High 0.70-1.20 [facility] Comment on above: Performed By: #### L 500.2500 ####[facility] [address] [place], [address] ECRCL 13.28 ml/min Normal [facility] Comment on above: Performed By: #### L 500.2500 ####[facility] [address] [place], [address] GFR/1.73 sq M.predicted among non-blacks MDRD (S/P/Bld) [Vol rate/Area] 13 mL/min/{1.73_m2} Low >60 [facility] Comment on above: Result Comment: mL/m in/1.73m2 CKD-EPI Creatinine Equation (2020) Performed By: #### L 500.2500 ####[facility] [address] [place], [address] Glucose [Mass/Vol] 153 mg/dL High 70-99 [facility] Comment on above: Performed By: #### L 500.2500 ####[facility] [address] [place], [address] Potassium [Moles/Vol] 5.5 mmol/L High 3.3-5.1 [facility] Comment on above: Performed By: #### L 500.2500 ####[facility] [address] [place], [address] Sodium [Moles/Vol] 131 mmol/L Low 133-145 [facility] Comment on above: Performed By: #### L 500.2500 ####[facility] [address] [place], [address] Urea nitrogen [Mass/Vol] 68 mg/dL High 4-19 [facility] Comment on above: Performed By: #### L 500.2500 ####[facility] [address] [place], [address] BUN/CRE 16.1 RATIO Normal 10-20 [facility] Comment on above: Result Comment: WILL REORDER Performed By: #### L 500.2500, L100.0100 ####[facility] [address] [place], [address] Creatinine [Mass/Vol] 4.15 mg/dL High 0.70-1.20 [facility] Comment on above: Result Comment: WILL REORDER Performed By: #### L 500.2500, L100.0100 ####[facility] [address] [place], [address] ECRCL 13.57 ml/min Normal [facility] Comment on above: Result Comment: WILL REORDER Performed By: #### L 500.2500, L100.0100 ####[facility] [address] [place], [address] GFR/1.73 sq M.predicted among non-blacks MDRD (S/P/Bld) [Vol rate/Area] 13 mL/min/{1.73_m2} Low >60 [facility] Comment on above: Result Comment: WILL REORDERmL/min/1.73m2 CKD-EPI Creatinine Equation (2020) Performed By: #### L 500.2500, L100.0100 ####[facility] [address] [place], [address] Glucose [Mass/Vol] 155 mg/dL High 70-99 [facility] Comment on above: Result Comment: WILL REORDER Performed By: #### L 500.2500, L100.0100 ####[facility] [address] [place], [address] Urea nitrogen [Mass/Vol] 67 mg/dL High 4-19 [facility] Comment on above: Result Comment: WILL REORDER Performed By: #### L 500.2500, L100.0100 ####[facility] [address] [place], [address] Calcium Normal 8.5-10.1 [facility] Comment on above: Result Comment: WILL REORDER Performed By: #### L 500.2500, L100.0100 ####[facility] [address] [place], [address] CL Normal 98-107 [facility] Comment on above: Result Comment: WILL REORDER Performed By: #### L 500.2500, L100.0100 ####[facility] [address] [place], [address] CO2 Normal 21.0-32.0 [facility] Comment on above: Result Comment: WILL REORDER Performed By: #### L 500.2500, L100.0100 ####[facility] [address] [place], [address] EST GFR - AA Normal >60 [facility] Comment on above: Result Comment: WILL REORDER Performed By: #### L 500.2500, L100.0100 ####[facility] [address] [place], [address] GAP Normal 5-15 [facility] Comment on above: Result Comment: WILL REORDER Performed By: #### L 500.2500, L100.0100 ####[facility] [address] [place], [address] Potassium Normal 3.5-5.1 [facility] Comment on above: Result Comment: WILL REORDER Performed By: #### L 500.2500, L100.0100 ####[facility] [address] [place], [address] Basic Metabolic Profile (BMP) Normal 136-145 [facility] Comment on above: Result Comment: WILL REORDER Performed By: #### L 500.2500, L100.0100 ####[facility] [address] [place], [address] Basophil percentageOrdered B y: Jayla Osuna on 07-20-2024 Basophils/100 WBC (Bld) 0.4 % 0-1 [facility] Bedside Glucoseon 07-20-2024 FINGERSTICK GLU 91 mg/dL Normal 74-106 [facility] Comment on above: Result Comment: FANG GEMENT OF PATIENT CARE PER NURSING PROTOCOL Performed By: #### L 501.080 ####[facility] [address] [place], [address] FINGERSTICK GLU 98 mg/dL Normal 74-106 [facility] Comment on above: Result Comment: FANG GEMENT OF PATIENT CARE PER NURSING PROTOCOL Performed By: #### L 501.080 ####[facility] [address] [place], [address] FINGERSTICK GLU 159 mg/dL High 74-106 [facility] Comment on above: Result Comment: FANG GEMENT OF PATIENT CARE PER NURSING PROTOCOL Performed By: #### L 501.080 ####[facility] [address] [place], [address] FINGERSTICK GLU 156 mg/dL High 74-106 [facility] Comment on above: Result Comment: FANG GEMENT OF PATIENT CARE PER NURSING PROTOCOL Performed By: #### L 501.080 ####[facility] [address] [place], [address] CBC W/Diff, Automatedon 06-24 Absolute Lymph 1.89 X10 3/uL Normal 0.83-4.51 [facility] Comment on above: Performed By: #### L 500.2500, L100.0100 ####[facility] [address] [place], [address] Absolute Neut 9.3 X10 3/uL High 2.0-7.7 [facility] Comment on above: Performed By: #### L 500.2500, L100.0100 ####[facility] [address] [place], [address] Basophils/100 WBC (Bld) 0.4 % Normal 0-1 [facility] Comment on above: Performed By: #### L 500.2500, L100.0100 ####[facility] [address] [place], [address] Eosinophils/100 WBC (Bld) 1.7 % Normal 0-5 [facility] Comment on above: Performed By: #### L 500.2500, L100.0100 ####[facility] [address] [place], [address] Erythrocyte distribution width (RBC) [Ratio] 17.6 % High 11.6-14.6 [facility] Comment on above: Performed By: #### L 500.2500, L100.0100 ####[facility] [address] [place], [address] Hematocrit (Bld) [Volume fraction] 25.2 % Low 40-54 [facility] Comment on above: Performed By: #### L 500.2500, L100.0100 ####[facility] [address] [place], [address] Hemoglobin (Bld) [Mass/Vol] 7.6 g/dL Low 13.0-16.5 [facility] Comment on above: Performed By: #### L 500.2500, L100.0100 ####[facility] [address] [place], [address] IG% 2.300 High 0.0-0.9 [facility] Comment on above: Result Comment: IG% - Immature Granulocytes (promyelocytes, myelocytes andmetamyelocytes) > 1% indicates that a LEFT SHIFT is Present. Performed By: #### L 500.2500, L100.0100 ####[facility] [address] [place], [address] Lymphocytes/100 WBC (Bld) 14.9 % Low 19-41 [facility] Comment on above: Performed By: #### L 500.2500, L100.0100 ####[facility] [address] [place], [address] MCH (RBC) [Entitic mass] 28.1 pg Normal 27.0-32.0 [facility] Comment on above: Performed By: #### L 500.2500, L100.0100 ####[facility] [address] [place], [address] MCHC (RBC) [Mass/Vol] 30.2 g/dL Low 32-36 [facility] Comment on above: Performed By: #### L 500.2500, L100.0100 ####[facility] [address] [place], [address] MCV (RBC) [Entitic vol] 93.3 fL Normal 80-94 [facility] Comment on above: Performed By: #### L 500.2500, L100.0100 ####[facility] [address] [place], [address] Monocytes/100 WBC (Bld) 7.6 % Normal 0-10 [facility] Comment on above: Performed By: #### L 500.2500, L100.0100 ####[facility] [address] [place], [address] Neutrophils/100 WBC (Bld) 73.1 % High 47-70 [facility] Comment on above: Performed By: #### L 500.2500, L100.0100 ####[facility] [address] [place], [address] Nucleated RBC (Bld) [#/Vol] 0 10*3/uL Normal 0-5 [facility] Comment on above: Performed By: #### L 500.2500, L100.0100 ####[facility] [address] [place], [address] Platelet mean volume (Bld) [Entitic vol] 10.4 fL Normal 6.2-12.0 [facility] Comment on above: Performed By: #### L 500.2500, L100.0100 ####[facility] [address] [place], [address] Platelets (Bld) [#/Vol] 438 10*3/uL Normal 150-450 [facility] Comment on above: Performed By: #### L 500.2500, L100.0100 ####[facility] [address] [place], [address] RBC (Bld) [#/Vol] 2.70 10*6/uL Low 4.6-6.2 [facility] Comment on above: Performed By: #### L 500.2500, L100.0100 ####[facility] [address] [place], [address] RDW SD 60.7 fl High 35.1-43.9 [facility] Comment on above: Performed By: #### L 500.2500, L100.0100 ####[facility] [address] [place], [address] WBC (Bld) [#/Vol] 12.7 10*3/uL High 4.4-11.0 [facility] Comment on above: Performed By: #### L 500.2500, L100.0100 ####[facility] [address] [place], [address] Carbon dioxide measurementOr dered By: Margarette Godinez on 07-20-2024 CO2 [Moles/Vol] 22.0 mmol/L 22.0-29.0 [facility] Chloride measurementOrdered By: Margarette Godinez on 07-20-2024 Chloride [Moles/Vol] 97 mmol/L 96-108 [facility] Eosinophil percentageOrdered By: Jayla Ousna on 07-20-2024 Eosinophils/100 WBC (Bld) 1.7 % 0-5 [facility] Erythrocyte distribution wid th ratioOrdered By: Jayla Osuna on 07-20-2024 Erythrocyte distribution width (RBC) [Ratio] 17.6 % High 11.6-14.6 [facility] Erythrocyte distribution wid th standard deviationOrdered By: Jayla Osuna on 07-20-2024 Erythrocyte distribution width (RBC) [Ratio] 60.7 fl High 35.1-43.9 [facility] Glomerular filtration rate ( GFR) estimation/1.73 sq m using serum, plasma, or whole bOrdered By: Margarette Godinez on 07-20-2024 GFR/1.73 sq M.predicted among non-blacks MDRD (S/P/Bld) [Vol rate/Area] 13 mL/min/{1.73_m2} Low >60 [facility] Gl[facility] at [facility] deOrdered By: Margarette Godinez on 07-20-2024 Glucose [Mass/Vol] 91 mg/dL 74-106 [facility] Hematocrit Auto (Bld) [Volum e fraction]Ordered By: Jayla Osuna on 07-20-2024 Hematocrit (Bld) [Volume fraction] 25.2 % Low 40-54 [facility] Hemoglobin measurementOrdere d By: Jayla Osuna on 07-20-2024 Hemoglobin (Bld) [Mass/Vol] 7.6 g/dL Low 13.0-16.5 [facility] Immature granulocytes/100 WB C Auto (Bld)Ordered By: Jayla Osuna on 07-20-2024 Immature granulocytes/100 WBC (Bld) 2.300 % High 0.0-0.9 [facility] MCV (mean corpuscular volume ) determinationOrdered By: Jayla Osuna on 07-20-2024 MCV (RBC) [Entitic vol] 93.3 fL 80-94 [facility] Mean corpuscular hemoglobin (MCH) determinationOrdered By: Jayla Osuna on 07-20-2024 MCH (RBC) [Entitic mass] 28.1 pg 27.0-32.0 [facility] Monocyte percentageOrdered B y: Jayla Osuna on 07-20-2024 Monocytes/100 WBC (Bld) 7.6 % 0-10 [facility] Neutrophil percentageOrdered By: Jayla Osuna on 07-20-2024 Neutrophils/100 WBC (Bld) 73.1 % High 47-70 [facility] Platelet countOrdered By: Kristofer Osuna on 07-20-2024 Platelets (Bld) [#/Vol] 438 10*3/uL 150-450 [facility] RBC Auto (Bld) [#/Vol]Ordere d By: Jayla Osuna on 07-20-2024 RBC (Bld) [#/Vol] 2.70 10*6/uL Low 4.6-6.2 [facility] Serum creatinine measurement (mass/volume)Ordered By: Margarette Godinez on 07-20-2024 Creatinine [Mass/Vol] 4.24 mg/dL High 0.70-1.20 [facility] Serum glucose measurement (m ass/volume)Ordered By: Margarette Godinez on 07-20-2024 Glucose [Mass/Vol] 153 mg/dL High 70-99 [facility] Serum or plasma anion gap de termination (moles/volume)Ordered By: Margarette Godinez on 07-20-2024 Anion gap [Moles/Vol] 12 mmol/L 5-15 [facility] Serum or plasma calcium lilli urement (mass/volume)Ordered By: Margarette Godinez on 07-20-2024 Calcium [Mass/Vol] 8.7 mg/dL 7.6-11.0 [facility] Serum or plasma potassium me asurementOrdered By: Margarette Godinez on 07-20-2024 Potassium [Moles/Vol] 5.5 mmol/L High 3.3-5.1 [facility] Serum or plasma sodium measu rement (moles/volume)Ordered By: Margarette Godinez on 07-20-2024 Sodium [Moles/Vol] 131 mmol/L Low 133-145 [facility] Serum or plasma urea nitroge n measurement (mass/volume)Ordered By: Margarette Godinez on 07-20-2024 Urea nitrogen [Mass/Vol] 68 mg/dL High 4-19 [facility] White blood cell (WBC) count Ordered By: Jayla Osuna on 07-20-2024 WBC (Bld) [#/Vol] 12.7 10*3/uL High 4.4-11.0 [facility] Basic Metabolic Profile (BMP )on 07-19-2024 Anion gap [Moles/Vol] 17 mmol/L High 5-15 [facility] Comment on above: Performed By: #### L 500.2500 ####[facility] [address] [place], [address] BUN/CRE 14.3 RATIO Normal 10-20 [facility] Comment on above: Performed By: #### L 500.2500 ####[facility] [address] [place], [address] Calcium [Mass/Vol] 8.7 mg/dL Normal 7.6-11.0 [facility] Comment on above: Performed By: #### L 500.2500 ####[facility] [address] [place], [address] Chloride [Moles/Vol] 95 mmol/L Low 96-108 [facility] Comment on above: Performed By: #### L 500.2500 ####[facility] [address] [place], [address] CO2 [Moles/Vol] 19.8 mmol/L Low 22.0-29.0 [facility] Comment on above: Performed By: #### L 500.2500 ####[facility] [address] [place], [address] Creatinine [Mass/Vol] 5.60 mg/dL High 0.70-1.20 [facility] Comment on above: Performed By: #### L 500.2500 ####[facility] [address] [place], [address] ECRCL 10.06 ml/min Normal [facility] Comment on above: Performed By: #### L 500.2500 ####[facility] [address] [place], [address] GFR/1.73 sq M.predicted among non-blacks MDRD (S/P/Bld) [Vol rate/Area] 9 mL/min/{1.73_m2} Low >60 [facility] Comment on above: Result Comment: mL/m in/1.73m2 CKD-EPI Creatinine Equation (2020) Performed By: #### L 500.2500 ####[facility] [address] [place], [address] Glucose [Mass/Vol] 153 mg/dL High 70-99 [facility] Comment on above: Performed By: #### L 500.2500 ####[facility] [address] [place], [address] Potassium [Moles/Vol] 5.9 mmol/L High 3.3-5.1 [facility] Comment on above: Performed By: #### L 500.2500 ####[facility] [address] [place], [address] Sodium [Moles/Vol] 131 mmol/L Low 133-145 [facility] Comment on above: Performed By: #### L 500.2500 ####[facility] [address] [place], [address] Urea nitrogen [Mass/Vol] 80 mg/dL High 4-19 [facility] Comment on above: Performed By: #### L 500.2500 ####[facility] [address] [place], [address] Anion gap [Moles/Vol] 13 mmol/L Normal 5-15 [facility] Comment on above: Performed By: #### L 500.2500 ####[facility] [address] [place], [address] ECRCL 12.41 ml/min Normal [facility] Comment on above: Performed By: #### L 500.2500 ####[facility] [address] [place], [address] GFR/1.73 sq M.predicted among non-blacks MDRD (S/P/Bld) [Vol rate/Area] 12 mL/min/{1.73_m2} Low >60 [facility] Comment on above: Performed By: #### L 500.2500 ####[facility] [address] [place], [address] BUN/CRE 13.7 RATIO Normal 10-20 [facility] Comment on above: Performed By: #### L 500.2500 ####[facility] [address] [place], [address] Calcium [Mass/Vol] 8.9 mg/dL Normal 7.6-11.0 [facility] Comment on above: Performed By: #### L 500.2500 ####[facility] [address] [place], [address] Creatinine [Mass/Vol] 4.6 mg/dL High 0.8-1.3 [facility] Comment on above: Performed By: #### L 500.2500 ####[facility] [address] [place], [address] Glucose [Mass/Vol] 130 mg/dL High 70-99 [facility] Comment on above: Performed By: #### L 500.2500 ####[facility] [address] [place], [address] Urea nitrogen [Mass/Vol] 63 mg/dL High 4-19 [facility] Comment on above: Performed By: #### L 500.2500 ####[facility] [address] [place], [address] Chloride [Moles/Vol] 97 mmol/L Normal 96-108 [facility] Comment on above: Performed By: #### L 500.2500 ####[facility] [address] [place], [address] CO2 [Moles/Vol] 22.7 mmol/L Normal 22.0-29.0 [facility] Comment on above: Performed By: #### L 500.2500 ####[facility] [address] [place], [address] Potassium [Moles/Vol] 5.0 mmol/L Normal 3.3-5.1 [facility] Comment on above: Performed By: #### L 500.2500 ####[facility] [address] [place], [address] Sodium [Moles/Vol] 133 mmol/L Normal 133-145 [facility] Comment on above: Performed By: #### L 500.2500 ####[facility] [address] [place], [address] Glucose [Mass/Vol] 165 mg/dL High 70-99 [facility] Comment on above: Order Comment: THERESA LIMA Result Comment: MARIS RAYA AMENDED REPORT 07/19/24 1223 GLU previously reported as: 173 H mg/dL Performed By: #### L 100.0100, L500.2500 ####[facility] [address] [place], [address] Urea nitrogen [Mass/Vol] 84 mg/dL High 4-19 [facility] Comment on above: Order Comment: THERESA EREBoo Result Comment: MARIS RAYA AMENDED REPORT 07/19/24 1223 BUN previously reported as: 83 H mg/dL Performed By: #### L 100.0100, L500.2500 ####[facility] [address] [place], [address] BUN/CRE 13.7 RATIO Normal 10-20 [facility] Comment on above: Order Comment: WILL REORDER Result Comment: WILL REORDER AMENDED REPORT 07/19/24 1106 BUN/CRE previously reported as: 13.5 RATIO Performed By: #### L 100.0100, L500.2500 ####[facility] [address] [place], [address] Creatinine [Mass/Vol] 4.6 mg/dL High 0.8-1.3 [facility] Comment on above: Order Comment: WILL REORDER Result Comment: WILL REORDER AMENDED REPORT 07/19/24 1106 CREAT,SERUM previously reported as: 4.5 H mg/dL Performed By: #### L 100.0100, L500.2500 ####[facility] [address] [place], [address] ECRCL 12.41 ml/min Normal [facility] Comment on above: Order Comment: WILL REORDER Result Comment: WILL REORDER AMENDED REPORT 07/19/246 Estimated CRCL previously reported as: 12.65 ml/min Performed By: #### L 100.0100, L500.2500 ####[facility] [address] [place], [address] Glucose [Mass/Vol] 130 mg/dL High 70-99 [facility] Comment on above: Order Comment: WILL REORDER Result Comment: WILL REORDER AMENDED REPORT 07/19/246 GLU previously reported as: 157 H mg/dL Performed By: #### L 100.0100, L500.2500 ####[facility] [address] [place], [address] Urea nitrogen [Mass/Vol] 63 mg/dL High 4-19 [facility] Comment on above: Order Comment: WILL REORDER Result Comment: WILL REORDER AMENDED REPORT 07/19/24 1106 BUN previously reported as: 60 H mg/dL Performed By: #### L 100.0100, L500.2500 ####[facility] [address] [place], [address] BUN/CRE 15.2 RATIO Normal 10-20 [facility] Comment on above: Order Comment: REORD ERED Result Comment: REOR DERED Performed By: #### L 100.0100, L500.2500 ####[facility] [address] [place], [address] Creatinine [Mass/Vol] 5.5 mg/dL High 0.8-1.3 [facility] Comment on above: Order Comment: REORD ERED Result Comment: REOR DERED Performed By: #### L 100.0100, L500.2500 ####[facility] [address] [place], [address] ECRCL 10.38 ml/min Normal [facility] Comment on above: Order Comment: REORD ERED Result Comment: REOR DERED Performed By: #### L 100.0100, L500.2500 ####[facility] [address] [place], [address] GFR/1.73 sq M.predicted among non-blacks MDRD (S/P/Bld) [Vol rate/Area] 9 mL/min/{1.73_m2} Low >60 [facility] Comment on above: Order Comment: REORD ERED Result Comment: REOR DEREDmL/min/1.73m2 CKD-EPI Creatinine Equation (2020) Performed By: #### L 100.0100, L500.2500 ####[facility] [address] [place], [address] Calcium Normal 8.5-10.1 [facility] Comment on above: Order Comment: REORD ERED Result Comment: REOR DERED Performed By: #### L 100.0100, L500.2500 ####[facility] [address] [place], [address] CL Normal 98-107 [facility] Comment on above: Order Comment: REORD ERED Result Comment: REOR DERED Performed By: #### L 100.0100, L500.2500 ####[facility] [address] [place], [address] CO2 Normal 21.0-32.0 [facility] Comment on above: Order Comment: REORD ERED Result Comment: REOR DERED Performed By: #### L 100.0100, L500.2500 ####[facility] [address] [place], [address] EST GFR - AA Normal >60 [facility] Comment on above: Order Comment: REORD ERED Result Comment: REOR DERED Performed By: #### L 100.0100, L500.2500 ####[facility] [address] [place], [address] GAP Normal 5-15 [facility] Comment on above: Order Comment: REORD ERED Result Comment: REOR DERED Performed By: #### L 100.0100, L500.2500 ####[facility] [address] [place], [address] Potassium Normal 3.5-5.1 [facility] Comment on above: Order Comment: REORD ERED Result Comment: REOR DERED Performed By: #### L 100.0100, L500.2500 ####[facility] [address] [place], [address] Basic Metabolic Profile (BMP) Normal 136-145 [facility] Comment on above: Order Comment: REORD ERED Result Comment: REOR DERED Performed By: #### L 100.0100, L500.2500 ####[facility] [address] [place], [address] Bedside Glucoseon 07-19-2024 FINGERSTICK GLU 135 mg/dL High 74-106 [facility] Comment on above: Result Comment: FANG VAZQUEZ OF PATIENT CARE PER NURSING PROTOCOL Performed By: #### L 501.080 ####[facility] [address] [place], [address] FINGERSTICK GLU 227 mg/dL High 74-106 [facility] Comment on above: Result Comment: FANG GEMENT OF PATIENT CARE PER NURSING PROTOCOL Performed By: #### L 501.080 ####[facility] [address] [place], [address] FINGERSTICK GLU 120 mg/dL High 74-106 [facility] Comment on above: Result Comment: FANG GEMENT OF PATIENT CARE PER NURSING PROTOCOL Performed By: #### L 501.080 ####[facility] [address] [place], [address] CBC W/Diff, Automatedon 06-24 Absolute Lymph 2.07 X10 3/uL Normal 0.83-4.51 [facility] Comment on above: Performed By: #### L 100.0100, L500.2500 ####[facility] [address] [place], [address] Absolute Neut 13.1 X10 3/uL High 2.0-7.7 [facility] Comment on above: Performed By: #### L 100.0100, L500.2500 ####[facility] [address] [place], [address] Basophils/100 WBC (Bld) 0.5 % Normal 0-1 [facility] Comment on above: Performed By: #### L 100.0100, L500.2500 ####[facility] [address] [place], [address] Eosinophils/100 WBC (Bld) 1.6 % Normal 0-5 [facility] Comment on above: Performed By: #### L 100.0100, L500.2500 ####[facility] [address] [place], [address] Erythrocyte distribution width (RBC) [Ratio] 17.7 % High 11.6-14.6 [facility] Comment on above: Performed By: #### L 100.0100, L500.2500 ####[facility] [address] [place], [address] Hematocrit (Bld) [Volume fraction] 25.5 % Low 40-54 [facility] Comment on above: Performed By: #### L 100.0100, L500.2500 ####[facility] [address] [place], [address] Hemoglobin (Bld) [Mass/Vol] 7.7 g/dL Low 13.0-16.5 [facility] Comment on above: Performed By: #### L 100.0100, L500.2500 ####[facility] [address] [place], [address] IG% 2.300 High 0.0-0.9 [facility] Comment on above: Result Comment: IG% - Immature Granulocytes (promyelocytes, myelocytes andmetamyelocytes) > 1% indicates that a LEFT SHIFT is Present. Performed By: #### L 100.0100, L500.2500 ####[facility] [address] [place], [address] Lymphocytes/100 WBC (Bld) 12.1 % Low 19-41 [facility] Comment on above: Performed By: #### L 100.0100, L500.2500 ####[facility] [address] [place], [address] MCH (RBC) [Entitic mass] 28.1 pg Normal 27.0-32.0 [facility] Comment on above: Performed By: #### L 100.0100, L500.2500 ####[facility] [address] [place], [address] MCHC (RBC) [Mass/Vol] 30.2 g/dL Low 32-36 [facility] Comment on above: Performed By: #### L 100.0100, L500.2500 ####[facility] [address] [place], [address] MCV (RBC) [Entitic vol] 93.1 fL Normal 80-94 [facility] Comment on above: Performed By: #### L 100.0100, L500.2500 ####[facility] [address] [place], [address] Monocytes/100 WBC (Bld) 7.1 % Normal 0-10 [facility] Comment on above: Performed By: #### L 100.0100, L500.2500 ####[facility] [address] [place], [address] Neutrophils/100 WBC (Bld) 76.4 % High 47-70 [facility] Comment on above: Performed By: #### L 100.0100, L500.2500 ####[facility] [address] [place], [address] Nucleated RBC (Bld) [#/Vol] 0 10*3/uL Normal 0-5 [facility] Comment on above: Performed By: #### L 100.0100, L500.2500 ####[facility] [address] [place], [address] Platelet mean volume (Bld) [Entitic vol] 10.6 fL Normal 6.2-12.0 [facility] Comment on above: Performed By: #### L 100.0100, L500.2500 ####[facility] [address] [place], [address] Platelets (Bld) [#/Vol] 467 10*3/uL High 150-450 [facility] Comment on above: Performed By: #### L 100.0100, L500.2500 ####[facility] [address] [place], [address] RBC (Bld) [#/Vol] 2.74 10*6/uL Low 4.6-6.2 [facility] Comment on above: Performed By: #### L 100.0100, L500.2500 ####[facility] [address] [place], [address] RDW SD 59.6 fl High 35.1-43.9 [facility] Comment on above: Performed By: #### L 100.0100, L500.2500 ####[facility] [address] [place], [address] WBC (Bld) [#/Vol] 17.2 10*3/uL High 4.4-11.0 [facility] Comment on above: Performed By: #### L 100.0100, L500.2500 ####[facility] [address] [place], [address] Serum or plasma vancomycin m easurement (mass/volume)Ordered By: Jayla Osuna on 07-19-2024 Vancomycin [Mass/Vol] 16.7 ug/mL High 0.0-15.0 [facility] Vancomycin, Random Levelon 0 07-19-2024 VANCO, RANDOM 16.7 ug/mL High 0.0-15.0 [facility] Comment on above: Result Comment: VANC OMYCIN STANDARD DRUG THERAPY: CRITICAL VALUE IS > 15.0 mg/LVANCOMYCIN HIGH INTENSITY THERAPY: CRITICAL VALUE IS > 20.0 mg/LPLEASE CONTACT PHARMACY SERVICES (#8581) FOR INTERPRETATIONOF RESULTS. THIS RESULT DOES NOT REPRESENT A PEAK OR TROUGHLEVEL FOR THIS DRUG. Performed By: #### L 501.8850 ####[facility] [address] [place], [address] Basic Metabolic Profile (BMP )on 07-18-2024 GFR/1.73 sq M.predicted among non-blacks MDRD (S/P/Bld) [Vol rate/Area] 12 mL/min/{1.73_m2} Low >60 [facility] Comment on above: Order Comment: WILL REORDER Result Comment: WILL REORDERmL/min/1.73m2 CKD-EPI Creatinine Equation (2020) Performed By: #### L 100.0100, L500.2500 ####[facility] [address] [place], [address] Calcium Normal 8.5-10.1 [facility] Comment on above: Order Comment: WILL REORDER Result Comment: WILL REORDER Performed By: #### L 100.0100, L500.2500 ####[facility] [address] [place], [address] CL Normal 98-107 [facility] Comment on above: Order Comment: WILL REORDER Result Comment: WILL REORDER Performed By: #### L 100.0100, L500.2500 ####[facility] [address] [place], [address] CO2 Normal 21.0-32.0 [facility] Comment on above: Order Comment: WILL REORDER Result Comment: WILL REORDER Performed By: #### L 100.0100, L500.2500 ####[facility] [address] [place], [address] EST GFR - AA Normal >60 [facility] Comment on above: Order Comment: WILL REORDER Result Comment: WILL REORDER Performed By: #### L 100.0100, L500.2500 ####[facility] [address] [place], [address] GAP Normal 5-15 [facility] Comment on above: Order Comment: WILL REORDER Result Comment: WILL REORDER Performed By: #### L 100.0100, L500.2500 ####[facility] [address] [place], [address] Potassium Normal 3.5-5.1 [facility] Comment on above: Order Comment: WILL REORDER Result Comment: WILL REORDER Performed By: #### L 100.0100, L500.2500 ####[facility] [address] [place], [address] Basic Metabolic Profile (BMP) Normal 136-145 [facility] Comment on above: Order Comment: WILL REORDER Result Comment: WILL REORDER Performed By: #### L 100.0100, L500.2500 ####[facility] [address] [place], [address] Bedside Glucoseon 07-18-2024 FINGERSTICK GLU 110 mg/dL High 74-106 [facility] Comment on above: Result Comment: FANG GEMENT OF PATIENT CARE PER NURSING PROTOCOL Performed By: #### L 501.080 ####[facility] [address] [place], [address] FINGERSTICK GLU 156 mg/dL High -106 [facility] Comment on above: Result Comment: FANG GEMENT OF PATIENT CARE PER NURSING PROTOCOL Performed By: #### L 501.080 ####[facility] [address] [place], [address] FINGERSTICK GLU 139 mg/dL High 74-106 [facility] Comment on above: Result Comment: FANG GEMENT OF PATIENT CARE PER NURSING PROTOCOL Performed By: #### L 501.080 ####[facility] [address] [place], [address] FINGERSTICK GLU 155 mg/dL High -106 [facility] Comment on above: Result Comment: FANG GEMENT OF PATIENT CARE PER NURSING PROTOCOL Performed By: #### L 501.080 ####[facility] [address] [place], [address] FINGERSTICK GLU 229 mg/dL High 74-106 [facility] Comment on above: Result Comment: FANG GEMENT OF PATIENT CARE PER NURSING PROTOCOL Performed By: #### L 501.080 ####[facility] [address] [place], [address] Body Tissue Cultureon 2024 BTC Normal [facility] Comment on above: Performed By: #### M 100.2910, M100.4001, M100.2000 ####[facility] [address] [place], [address] CBC W/Diff, Automatedon 06-24 PATH REV Reviewed Normal [facility] Comment on above: Result Comment: Neut rophilic leukocytosis with left shift.Normocytic anemia.Clinical correlation necessary.Jose Souza M.D. 07/18/24 AMENDED REPORT 07/18/24 1335 PATH REV previously reported as: September nitesh Performed By: #### L 100.0100, L500.2500 ####[facility] [address] [place], [address] Culture, Anaerobic Any Sourc reed 07-18-2024 CUAN Normal [facility] Comment on above: Performed By: #### M 100.4001, M100.2000, M100.3000 ####[facility] [address] [place], [address] Review by pathologistOrdered By: Jayla Osuna on 07-18-2024 Pathologist review Jeff (Unsp spec) [Interp] Reviewed [facility] Wound Cultureon 07-18-2024 WC Normal [facility] Comment on above: Performed By: #### M 100.4001, M100.3000, M100.2000 ####[facility] [address] [place], [address] WC Normal [facility] Comment on above: Performed By: #### M 100.2000, M100.3000, M100.4001 ####[facility] [address] [place], [address] Ankle Brachial Indexon 07-17 Ankle Brachial Index Normal [facility] Basic Metabolic Profile (BMP )on 07-17-2024 BUN/CRE 13.3 RATIO Normal 10-20 [facility] Comment on above: Performed By: #### L 500.2500, L100.0100 ####[facility] [address] [place], [address] CA,Total 8.3 mg/dL Low 8.5-10.1 [facility] Comment on above: Performed By: #### L 500.2500, L100.0100 ####[facility] [address] [place], [address] Chloride [Moles/Vol] 97 mmol/L Low 98-107 [facility] Comment on above: Performed By: #### L 500.2500, L100.0100 ####[facility] [address] [place], [address] CO2 [Moles/Vol] 25.0 mmol/L Normal 21.0-32.0 [facility] Comment on above: Performed By: #### L 500.2500, L100.0100 ####[facility] [address] [place], [address] Creatinine [Mass/Vol] 6.15 mg/dL High 0.70-1.30 [facility] Comment on above: Result Comment: The validity of the calculated GFR GFRAA in patients over70 years has not been determined. Clinical correlation isessential. Performed By: #### L 500.2500, L100.0100 ####[facility] [address] [place], [address] ECRCL 9.33 ml/min Normal [facility] Comment on above: Performed By: #### L 500.2500, L100.0100 ####[facility] [address] [place], [address] EST GFR - AA 11 mL/min Low >60 [facility] Comment on above: Result Comment: Afri can [place] GFR Calc Performed By: #### L 500.2500, L100.0100 ####[facility] [address] [place], [address] GAP 8 Normal 5-15 [facility] Comment on above: Performed By: #### L 500.2500, L100.0100 ####[facility] [address] [place], [address] GFR/1.73 sq M.predicted among non-blacks MDRD (S/P/Bld) [Vol rate/Area] 9 mL/min/{1.73_m2} Low >60 [facility] Comment on above: Result Comment: Non- GFR Calc Performed By: #### L 500.2500, L100.0100 ####[facility] [address] [place], [address] Glucose [Mass/Vol] 213 mg/dL High 74-106 [facility] Comment on above: Result Comment: Gluc ose result greater than or equal to 200 mg/dLsuggests DIABETES MELLITUS per A.D.A. criteria. Performed By: #### L 500.2500, L100.0100 ####[facility] [address] [place], [address] Potassium [Moles/Vol] 5.1 mmol/L Normal 3.5-5.1 [facility] Comment on above: Performed By: #### L 500.2500, L100.0100 ####[facility] [address] [place], [address] Sodium [Moles/Vol] 130 mmol/L Low 136-145 [facility] Comment on above: Performed By: #### L 500.2500, L100.0100 ####[facility] [address] [place], [address] Urea nitrogen [Mass/Vol] 82 mg/dL High 7-18 [facility] Comment on above: Performed By: #### L 500.2500, L100.0100 ####[facility] [address] [place], [address] Bedside Glucoseon 07-17-2024 FINGERSTICK GLU 119 mg/dL High 74-106 [facility] Comment on above: Result Comment: FANG GEMENT OF PATIENT CARE PER NURSING PROTOCOL Performed By: #### L 501.080 ####[facility] [address] [place], [address] FINGERSTICK GLU 226 mg/dL High 74-106 [facility] Comment on above: Result Comment: FANG GEMENT OF PATIENT CARE PER NURSING PROTOCOL Performed By: #### L 501.080 ####[facility] [address] [place], [address] FINGERSTICK GLU 203 mg/dL High 74-106 [facility] Comment on above: Result Comment: FANG GEMENT OF PATIENT CARE PER NURSING PROTOCOL Performed By: #### L 501.080 ####[facility] [address] [place], [address] FINGERSTICK GLU 208 mg/dL High 74-106 [facility] Comment on above: Result Comment: FANG GEMENT OF PATIENT CARE PER NURSING PROTOCOL Performed By: #### L 501.080 ####[facility] [address] [place], [address] Blood cultureOrdered By: Rosales Shore on 07-17-2024 Bacteria identified Cx Nom (Bld) No growth in 5 days. [facility] CBC W/Diff, Automatedon 06-24 Absolute Lymph 2.11 X10 3/uL Normal 0.83-4.51 [facility] Comment on above: Performed By: #### L 500.2500, L100.0100 ####[facility] [address] [place], [address] Absolute Neut 17.0 X10 3/uL High 2.0-7.7 [facility] Comment on above: Performed By: #### L 500.2500, L100.0100 ####[facility] [address] [place], [address] Basophils/100 WBC (Bld) 0.3 % Normal 0-1 [facility] Comment on above: Performed By: #### L 500.2500, L100.0100 ####[facility] [address] [place], [address] Eosinophils/100 WBC (Bld) 0.6 % Normal 0-5 [facility] Comment on above: Performed By: #### L 500.2500, L100.0100 ####[facility] [address] [place], [address] Erythrocyte distribution width (RBC) [Ratio] 17.7 % High 11.6-14.6 [facility] Comment on above: Performed By: #### L 500.2500, L100.0100 ####[facility] [address] [place], [address] Hematocrit (Bld) [Volume fraction] 23.7 % Low 40-54 [facility] Comment on above: Performed By: #### L 500.2500, L100.0100 ####[facility] [address] [place], [address] Hemoglobin (Bld) [Mass/Vol] 7.1 g/dL Low 13.0-16.5 [facility] Comment on above: Performed By: #### L 500.2500, L100.0100 ####[facility] [address] [place], [address] IG% 2.800 High 0.0-0.9 [facility] Comment on above: Result Comment: IG% - Immature Granulocytes (promyelocytes, myelocytes andmetamyelocytes) > 1% indicates that a LEFT SHIFT is Present. Performed By: #### L 500.2500, L100.0100 ####[facility] [address] [place], [address] Lymphocytes/100 WBC (Bld) 9.9 % Low 19-41 [facility] Comment on above: Performed By: #### L 500.2500, L100.0100 ####[facility] [address] [place], [address] MCH (RBC) [Entitic mass] 27.8 pg Normal 27.0-32.0 [facility] Comment on above: Performed By: #### L 500.2500, L100.0100 ####[facility] [address] [place], [address] MCHC (RBC) [Mass/Vol] 30.0 g/dL Low 32-36 [facility] Comment on above: Performed By: #### L 500.2500, L100.0100 ####[facility] [address] [place], [address] MCV (RBC) [Entitic vol] 92.9 fL Normal 80-94 [facility] Comment on above: Performed By: #### L 500.2500, L100.0100 ####[facility] [address] [place], [address] Monocytes/100 WBC (Bld) 6.6 % Normal 0-10 [facility] Comment on above: Performed By: #### L 500.2500, L100.0100 ####[facility] [address] [place], [address] Neutrophils/100 WBC (Bld) 79.8 % High 47-70 [facility] Comment on above: Performed By: #### L 500.2500, L100.0100 ####[facility] [address] [place], [address] Nucleated RBC (Bld) [#/Vol] 0 10*3/uL Normal 0-5 [facility] Comment on above: Performed By: #### L 500.2500, L100.0100 ####[facility] [address] [place], [address] Platelet mean volume (Bld) [Entitic vol] 10.7 fL Normal 6.2-12.0 [facility] Comment on above: Performed By: #### L 500.2500, L100.0100 ####[facility] [address] [place], [address] Platelets (Bld) [#/Vol] 378 10*3/uL Normal 150-450 [facility] Comment on above: Performed By: #### L 500.2500, L100.0100 ####[facility] [address] [place], [address] RBC (Bld) [#/Vol] 2.55 10*6/uL Low 4.6-6.2 [facility] Comment on above: Performed By: #### L 500.2500, L100.0100 ####[facility] [address] [place], [address] RDW SD 60.7 fl High 35.1-43.9 [facility] Comment on above: Performed By: #### L 500.2500, L100.0100 ####[facility] [address] [place], [address] WBC (Bld) [#/Vol] 21.2 10*3/uL High 4.4-11.0 [facility] Comment on above: Performed By: #### L 500.2500, L100.0100 ####[facility] [address] [place], [address] Chloride measurementOrdered By: Jayla Osuna on 07-17-2024 Chloride [Moles/Vol] 97 mmol/L Low 98-107 [facility] Gram Stainon 07-17-2024 GS UNK UNK Post-lavage Right lower extremity Gram Stain 3+ Gram positive cocci Rare White Blood Cells Normal [facility] Comment on above: Performed By: #### M 100.2000, M100.3000, M100.4001 ####[facility] [address] [place], [address] GS UNK UNK Pre-lavage right lower extremity - collected in [place] Gram Stain Rare White Blood Cells 3+ Red Blood Cells Rare Gram positive cocci Normal [facility] Comment on above: Performed By: #### M 100.4001, M100.3000, ####[facility] [address] [place], [address] GS Reason for Exam: Infection of right lower extremity Bone cortex right lower extremity Gram Stain 4+ Gram positive cocci Rare Gram negative rods No White Blood Cells Normal [facility] Comment on above: Performed By: #### M 100.2910, M100.4001, M1.1999 ####[facility] [address] [place], [address] US Art Duplex Bilat Lower Ex ton 07-17-2024 US Art Duplex Bilat Lower Ext Normal [facility] Vancomycin, Random Levelon 0 07-17-2024 VANCO, RANDOM 13.2 ug/mL Normal 0.0-15.0 [facility] Comment on above: Result Comment: VANC OMYCIN STANDARD DRUG THERAPY: CRITICAL VALUE IS > 15.0 mg/LVANCOMYCIN HIGH INTENSITY THERAPY: CRITICAL VALUE IS > 20.0 mg/LPLEASE CONTACT PHARMACY SERVICES (#[id number]) FOR INTERPRETATIONOF RESULTS. THIS RESULT DOES NOT REPRESENT A PEAK OR TROUGHLEVEL FOR THIS DRUG. Performed By: #### L 501.8850 ####[facility] [address] [place], [address] 12 Lead EKGon 07-16-2024 12 Lead EKG Normal [facility] Activated partial thrombopla stin time (aPTT) in platelet poor plasma by coagulation aOrdered By: Flavio Young on 07-16-2024 aPTT Coag (PPP) [Time] 39.7 s High 24.1-36.2 [facility] Anaerobic cultureOrdered By: Josef Garcia on 07-16-2024 Bacteria identified Anaer cx Nom (Unsp spec) Clostridium cadaveris Abnormal [facility] Bacteria identified Anaer cx Nom (Unsp spec) No anaerobic bacteria isolated. [facility] Bacterial tissue aerobic cul tureOrdered By: Josef Garcia on 07-16-2024 Bacteria identified Aer cx Nom (Tiss) Meth. resistant Staph. aureus Abnormal [facility] Basic Metabolic Profile (BMP )on 07-16-2024 BUN/CRE 13.8 RATIO Normal 10-20 [facility] Comment on above: Performed By: #### L 100.0100, L500.2500 ####[facility] [address] [place], [address] CA,Total 8.7 mg/dL Normal 8.5-10.1 [facility] Comment on above: Performed By: #### L 100.0100, L500.2500 ####[facility] [address] [place], [address] Chloride [Moles/Vol] 97 mmol/L Low 98-107 [facility] Comment on above: Performed By: #### L 100.0100, L500.2500 ####[facility] [address] [place], [address] CO2 [Moles/Vol] 26.0 mmol/L Normal 21.0-32.0 [facility] Comment on above: Performed By: #### L 100.0100, L500.2500 ####[facility] [address] [place], [address] Creatinine [Mass/Vol] 5.13 mg/dL High 0.70-1.30 [facility] Comment on above: Result Comment: The validity of the calculated GFR GFRAA in patients over70 years has not been determined. Clinical correlation isessential. Performed By: #### L 100.0100, L500.2500 ####[facility] [address] [place], [address] ECRCL 11.13 ml/min Normal [facility] Comment on above: Performed By: #### L 100.0100, L500.2500 ####[facility] [address] [place], [address] EST GFR - AA 14 mL/min Low >60 [facility] Comment on above: Result Comment: Afri can Mauritanian GFR Calc Performed By: #### L 100.0100, L500.2500 ####[facility] [address] [place], [address] GAP 11 Normal 5-15 [facility] Comment on above: Performed By: #### L 100.0100, L500.2500 ####[facility] [address] [place], [address] GFR/1.73 sq M.predicted among non-blacks MDRD (S/P/Bld) [Vol rate/Area] 11 mL/min/{1.73_m2} Low >60 [facility] Comment on above: Result Comment: Non- GFR Calc Performed By: #### L 100.0100, L500.2500 ####[facility] [address] [place], [address] Glucose [Mass/Vol] 127 mg/dL High 74-106 [facility] Comment on above: Result Comment: Fast ing Glucose result greater than or equal to 126 mg/dLsuggests DIABETES MELLITUS per A.D.A. criteria. Performed By: #### L 100.0100, L500.2500 ####[facility] [address] [place], [address] Potassium [Moles/Vol] 4.3 mmol/L Normal 3.5-5.1 [facility] Comment on above: Performed By: #### L 100.0100, L500.2500 ####[facility] [address] [place], [address] Sodium [Moles/Vol] 134 mmol/L Low 136-145 [facility] Comment on above: Performed By: #### L 100.0100, L500.2500 ####[facility] [address] [place], [address] Urea nitrogen [Mass/Vol] 71 mg/dL High 7-18 [facility] Comment on above: Performed By: #### L 100.0100, L500.2500 ####[facility] [address] [place], [address] Bedside Glucoseon 07-16-2024 FINGERSTICK GLU 105 mg/dL Normal 74-106 [facility] Comment on above: Result Comment: FANG GEMENT OF PATIENT CARE PER NURSING PROTOCOL Performed By: #### L 501.080 ####[facility] [address] [place], [address] FINGERSTICK GLU 118 mg/dL High 74-106 [facility] Comment on above: Result Comment: FANG GEMENT OF PATIENT CARE PER NURSING PROTOCOL Performed By: #### L 501.080 ####[facility] [address] [place], [address] FINGERSTICK GLU 122 mg/dL High 74-106 [facility] Comment on above: Result Comment: FANG GEMENT OF PATIENT CARE PER NURSING PROTOCOL Performed By: #### L 501.080 ####[facility] [address] [place], [address] Blood cultureOrdered By: Rosales Shore on 07-16-2024 Bacteria identified Cx Nom (Bld) No growth in 5 days. [facility] CBC W/Diff, Automatedon 06-24 PATH REV Reviewed Normal [facility] Comment on above: Result Comment: Neut rophilic leukocytosis with left shift.Normocytic anemia.Clinical correlation necessary.Jose Souza M.D. 07/16/24 AMENDED REPORT 07/16/24 1406 PATH REV previously reported as: Michelle dowling Performed By: #### L 101.9900, L501.6710, L500.2500, L100.0100 ####[facility] [address] [place], [address] Absolute Lymph 2.43 X10 3/uL Normal 0.83-4.51 [facility] Comment on above: Performed By: #### L 100.0100, L500.2500 ####[facility] [address] [place], [address] Absolute Neut 12.8 X10 3/uL High 2.0-7.7 [facility] Comment on above: Performed By: #### L 100.0100, L500.2500 ####[facility] [address] [place], [address] Basophils/100 WBC (Bld) 0.2 % Normal 0-1 [facility] Comment on above: Performed By: #### L 100.0100, L500.2500 ####[facility] [address] [place], [address] Eosinophils/100 WBC (Bld) 1.6 % Normal 0-5 [facility] Comment on above: Performed By: #### L 100.0100, L500.2500 ####[facility] [address] [place], [address] Erythrocyte distribution width (RBC) [Ratio] 17.7 % High 11.6-14.6 [facility] Comment on above: Performed By: #### L 100.0100, L500.2500 ####[facility] [address] [place], [address] Hematocrit (Bld) [Volume fraction] 25.2 % Low 40-54 [facility] Comment on above: Performed By: #### L 100.0100, L500.2500 ####[facility] [address] [place], [address] Hemoglobin (Bld) [Mass/Vol] 7.5 g/dL Low 13.0-16.5 [facility] Comment on above: Performed By: #### L 100.0100, L500.2500 ####[facility] [address] [place], [address] IG% 3.200 High 0.0-0.9 [facility] Comment on above: Result Comment: IG% - Immature Granulocytes (promyelocytes, myelocytes andmetamyelocytes) > 1% indicates that a LEFT SHIFT is Present. Performed By: #### L 100.0100, L500.2500 ####[facility] [address] [place], [address] Lymphocytes/100 WBC (Bld) 14.0 % Low 19-41 [facility] Comment on above: Performed By: #### L 100.0100, L500.2500 ####[facility] [address] [place], [address] MCH (RBC) [Entitic mass] 28.2 pg Normal 27.0-32.0 [facility] Comment on above: Performed By: #### L 100.0100, L500.2500 ####[facility] [address] [place], [address] MCHC (RBC) [Mass/Vol] 29.8 g/dL Low 32-36 [facility] Comment on above: Performed By: #### L 100.0100, L500.2500 ####[facility] [address] [place], [address] MCV (RBC) [Entitic vol] 94.7 fL High 80-94 [facility] Comment on above: Performed By: #### L 100.0100, L500.2500 ####[facility] [address] [place], [address] Monocytes/100 WBC (Bld) 7.5 % Normal 0-10 [facility] Comment on above: Performed By: #### L 100.0100, L500.2500 ####[facility] [address] [place], [address] Neutrophils/100 WBC (Bld) 73.5 % High 47-70 [facility] Comment on above: Performed By: #### L 100.0100, L500.2500 ####[facility] [address] [place], [address] Nucleated RBC (Bld) [#/Vol] 0 10*3/uL Normal 0-5 [facility] Comment on above: Performed By: #### L 100.0100, L500.2500 ####[facility] [address] [place], [address] Platelet mean volume (Bld) [Entitic vol] 10.6 fL Normal 6.2-12.0 [facility] Comment on above: Performed By: #### L 100.0100, L500.2500 ####[facility] [address] [place], [address] Platelets (Bld) [#/Vol] 378 10*3/uL Normal 150-450 [facility] Comment on above: Performed By: #### L 100.0100, L500.2500 ####[facility] [address] [place], [address] RBC (Bld) [#/Vol] 2.66 10*6/uL Low 4.6-6.2 [facility] Comment on above: Performed By: #### L 100.0100, L500.2500 ####[facility] [address] [place], [address] RDW SD 60.4 fl High 35.1-43.9 [facility] Comment on above: Performed By: #### L 100.0100, L500.2500 ####[facility] [address] [place], [address] WBC (Bld) [#/Vol] 17.4 10*3/uL High 4.4-11.0 [facility] Comment on above: Performed By: #### L 100.0100, L500.2500 ####[facility] [address] [place], [address] Consultation - Infectious Dx on 07-16-2024 Consultation - Infectious Dx Normal [facility] Consultation - Nephrologyon 07-16-2024 Consultation - Nephrology Normal [facility] Culture, Blood (WB)on 2024 CUB Normal [facility] Comment on above: Performed By: #### M 200.1000, M100.636 ####[facility] [address] [place], [address] Foot 2 Viewson 07-16-2024 Foot 2 Views Normal [facility] Gram stainOrdered By: Kesha Garcia on 07-16-2024 Microscopic observation Gram stain Nom (Unsp spec) [facility] Hemoglobin A1con 07-16-2024 HbA1c (Bld) [Mass fraction] 6.0 % High 3.8-5.6 [facility] Comment on above: Order Comment: Comme nts: Pre-operative Result Comment: Norm al < 5.7 % Prediabetic 5.7 - 6.4 % Diabetic >or= 6.5 % Please note range changes. Performed By: #### L 300.3900, L501.9985, L300.4310 ####[facility] [address] [place], [address] Hemoglobin A1c percentageOrd ered By: Flavio Young on 07-16-2024 HbA1c (Bld) [Mass fraction] 6.0 % High 3.8-5.6 [facility] MR/POSTOP.ANEon 07-16-2024 MR/POSTOP.ANE Normal [facility] MR/JSVNCRBY0bd 07-16-2024 MR/POSTOPAN2 Normal [facility] Operative Reporton Operative Report Normal [facility] Partial Thromboplast Timeon 07-16-2024 aPTT Coag (Bld) [Time] 39.7 s High 24.1-36.2 [facility] Comment on above: Order Comment: Comme nts: Pre-operative Performed By: #### L 300.3900, L501.9985, L300.4310 ####[facility] [address] [place], [address] Prothrombin Time w/INRon INR Coag (PPP) [Relative time] 1.3 {INR} Normal [facility] Comment on above: Order Comment: Comme nts: Pre-operative Performed By: #### L 300.3900, L501.9985, L300.4310 ####[facility] [address] [place], [address] PT Coag (PPP) [Time] 16.8 s High 11.7-14.9 [facility] Comment on above: Order Comment: Comme nts: Pre-operative Performed By: #### L 300.3900, L501.9985, L300.4310 ####[facility] [address] [place], [address] Prothrombin timeOrdered By: Flavio Young on 07-16-2024 PT Coag (PPP) [Time] 16.8 s High 11.7-14.9 [facility] Routine wound cultureOrdered By: Josef Garcia on 07-16-2024 Microbial culture, routine Meth. resistant Staph. aureus Abnormal [facility] Basic Metabolic Profile (BMP )on 07-15-2024 BUN/CRE 13.9 RATIO Normal 10-20 [facility] Comment on above: Performed By: #### L 500.2500, L100.0100 ####[facility] [address] [place], [address] CA,Total 8.8 mg/dL Normal 8.5-10.1 [facility] Comment on above: Performed By: #### L 500.2500, L100.0100 ####[facility] [address] [place], [address] Chloride [Moles/Vol] 98 mmol/L Normal 98-107 [facility] Comment on above: Performed By: #### L 500.2500, L100.0100 ####[facility] [address] [place], [address] CO2 [Moles/Vol] 27.0 mmol/L Normal 21.0-32.0 [facility] Comment on above: Performed By: #### L 500.2500, L100.0100 ####[facility] [address] [place], [address] Creatinine [Mass/Vol] 3.97 mg/dL High 0.70-1.30 [facility] Comment on above: Result Comment: The validity of the calculated GFR GFRAA in patients over70 years has not been determined. Clinical correlation isessential. Performed By: #### L 500.2500, L100.0100 ####[facility] [address] [place], [address] ECRCL 14.64 ml/min Normal [facility] Comment on above: Performed By: #### L 500.2500, L100.0100 ####[facility] [address] [place], [address] EST GFR - AA 19 mL/min Low >60 [facility] Comment on above: Result Comment: Afri can [place] GFR Calc Performed By: #### L 500.2500, L100.0100 ####[facility] [address] [place], [address] GAP 9 Normal 5-15 [facility] Comment on above: Performed By: #### L 500.2500, L100.0100 ####[facility] [address] [place], [address] GFR/1.73 sq M.predicted among non-blacks MDRD (S/P/Bld) [Vol rate/Area] 15 mL/min/{1.73_m2} Low >60 [facility] Comment on above: Result Comment: Non- GFR Calc Performed By: #### L 500.2500, L100.0100 ####[facility] [address] [place], [address] Glucose [Mass/Vol] 204 mg/dL High 74-106 [facility] Comment on above: Result Comment: Gluc ose result greater than or equal to 200 mg/dLsuggests DIABETES MELLITUS per A.D.A. criteria. Performed By: #### L 500.2500, L100.0100 ####[facility] [address] [place], [address] Potassium [Moles/Vol] 3.5 mmol/L Normal 3.5-5.1 [facility] Comment on above: Performed By: #### L 500.2500, L100.0100 ####[facility] [address] [place], [address] Sodium [Moles/Vol] 133 mmol/L Low 136-145 [facility] Comment on above: Performed By: #### L 500.2500, L100.0100 ####[facility] [address] [place], [address] Urea nitrogen [Mass/Vol] 55 mg/dL High 7-18 [facility] Comment on above: Performed By: #### L 500.2500, L100.0100 ####[facility] [address] [place], [address] Bedside Glucoseon 07-15-2024 FINGERSTICK GLU 138 mg/dL High 74-106 [facility] Comment on above: Result Comment: FANG GEMENT OF PATIENT CARE PER NURSING PROTOCOL Performed By: #### L 501.080 ####[facility] [address] [place], [address] FINGERSTICK GLU 57 mg/dL Low 74-106 [facility] Comment on above: Result Comment: FANG GEMENT OF PATIENT CARE PER NURSING PROTOCOL Performed By: #### L 501.080 ####[facility] [address] [place], [address] FINGERSTICK GLU 141 mg/dL High 74-106 [facility] Comment on above: Result Comment: FANG GEMENT OF PATIENT CARE PER NURSING PROTOCOL Performed By: #### L 501.080 ####[facility] [address] [place], [address] FINGERSTICK GLU 214 mg/dL High 74-106 [facility] Comment on above: Result Comment: FANG GEMENT OF PATIENT CARE PER NURSING PROTOCOL Performed By: #### L 501.080 ####[facility] [address] [place], [address] CBC W/Diff, Automatedon 02-06 25-2024 Absolute Lymph 2.18 X10 3/uL Normal 0.83-4.51 [facility] Comment on above: Performed By: #### L 500.2500, L100.0100 ####[facility] [address] [place], [address] Absolute Neut 14.1 X10 3/uL High 2.0-7.7 [facility] Comment on above: Performed By: #### L 500.2500, L100.0100 ####[facility] [address] [place], [address] Basophils/100 WBC (Bld) 0.2 % Normal 0-1 [facility] Comment on above: Performed By: #### L 500.2500, L100.0100 ####[facility] [address] [place], [address] Eosinophils/100 WBC (Bld) 1.2 % Normal 0-5 [facility] Comment on above: Performed By: #### L 500.2500, L100.0100 ####[facility] [address] [place], [address] Erythrocyte distribution width (RBC) [Ratio] 17.6 % High 11.6-14.6 [facility] Comment on above: Performed By: #### L 500.2500, L100.0100 ####[facility] [address] [place], [address] Hematocrit (Bld) [Volume fraction] 26.7 % Low 40-54 [facility] Comment on above: Performed By: #### L 500.2500, L100.0100 ####[facility] [address] [place], [address] Hemoglobin (Bld) [Mass/Vol] 7.8 g/dL Low 13.0-16.5 [facility] Comment on above: Performed By: #### L 500.2500, L100.0100 ####[facility] [address] [place], [address] IG% 2.500 High 0.0-0.9 [facility] Comment on above: Result Comment: IG% - Immature Granulocytes (promyelocytes, myelocytes andmetamyelocytes) > 1% indicates that a LEFT SHIFT is Present. Performed By: #### L 500.2500, L100.0100 ####[facility] [address] [place], [address] Lymphocytes/100 WBC (Bld) 11.9 % Low 19-41 [facility] Comment on above: Performed By: #### L 500.2500, L100.0100 ####[facility] [address] [place], [address] MCH (RBC) [Entitic mass] 27.9 pg Normal 27.0-32.0 [facility] Comment on above: Performed By: #### L 500.2500, L100.0100 ####[facility] [address] [place], [address] MCHC (RBC) [Mass/Vol] 29.2 g/dL Low 32-36 [facility] Comment on above: Performed By: #### L 500.2500, L100.0100 ####[facility] [address] [place], [address] MCV (RBC) [Entitic vol] 95.4 fL High 80-94 [facility] Comment on above: Performed By: #### L 500.2500, L100.0100 ####[facility] [address] [place], [address] Monocytes/100 WBC (Bld) 7.1 % Normal 0-10 [facility] Comment on above: Performed By: #### L 500.2500, L100.0100 ####[facility] [address] [place], [address] Neutrophils/100 WBC (Bld) 77.1 % High 47-70 [facility] Comment on above: Performed By: #### L 500.2500, L100.0100 ####[facility] [address] [place], [address] Nucleated RBC (Bld) [#/Vol] 0 10*3/uL Normal 0-5 [facility] Comment on above: Performed By: #### L 500.2500, L100.0100 ####[facility] [address] [place], [address] Platelet mean volume (Bld) [Entitic vol] 10.7 fL Normal 6.2-12.0 [facility] Comment on above: Performed By: #### L 500.2500, L100.0100 ####[facility] [address] [place], [address] Platelets (Bld) [#/Vol] 361 10*3/uL Normal 150-450 [facility] Comment on above: Performed By: #### L 500.2500, L100.0100 ####[facility] [address] [place], [address] RBC (Bld) [#/Vol] 2.80 10*6/uL Low 4.6-6.2 [facility] Comment on above: Performed By: #### L 500.2500, L100.0100 ####[facility] [address] [place], [address] RDW SD 61.1 fl High 35.1-43.9 [facility] Comment on above: Performed By: #### L 500.2500, L100.0100 ####[facility] [address] [place], [address] WBC (Bld) [#/Vol] 18.3 10*3/uL High 4.4-11.0 [facility] Comment on above: Performed By: #### L 500.2500, L100.0100 ####[facility] [address] [place], [address] Foot min 3 Viewson 5 Foot min 3 Views Normal [facility] Wound Cultureon 07-15-2024 WC Normal [facility] Comment on above: Performed By: #### M 100.4001, M100.2000, M100.3000 ####[facility] [address] [place], [address] BC GPC IDon 07-14-2024 BC GPC ID Normal [facility] Comment on above: Performed By: #### M 200.1000, M100.636 ####[facility] [address] [place], [address] Basic Metabolic Profile (BMP )on 07-14-2024 BUN/CRE 11.0 RATIO Normal 10-20 [facility] Comment on above: Performed By: #### L 500.2500, L100.0100 ####[facility] [address] [place], [address] CA,Total 8.6 mg/dL Normal 8.5-10.1 [facility] Comment on above: Performed By: #### L 500.2500, L100.0100 ####[facility] [address] [place], [address] Chloride [Moles/Vol] 94 mmol/L Low 98-107 [facility] Comment on above: Performed By: #### L 500.2500, L100.0100 ####[facility] [address] [place], [address] CO2 [Moles/Vol] 30.0 mmol/L Normal 21.0-32.0 [facility] Comment on above: Performed By: #### L 500.2500, L100.0100 ####[facility] [address] [place], [address] Creatinine [Mass/Vol] 4.84 mg/dL High 0.70-1.30 [facility] Comment on above: Result Comment: The validity of the calculated GFR GFRAA in patients over70 years has not been determined. Clinical correlation isessential. Performed By: #### L 500.2500, L100.0100 ####[facility] [address] [place], [address] ECRCL 11.51 ml/min Normal [facility] Comment on above: Performed By: #### L 500.2500, L100.0100 ####[facility] [address] [place], [address] EST GFR - AA 15 mL/min Low >60 [facility] Comment on above: Result Comment: Afri can Mauritanian GFR Calc Performed By: #### L 500.2500, L100.0100 ####[facility] [address] [place], [address] GAP 8 Normal 5-15 [facility] Comment on above: Performed By: #### L 500.2500, L100.0100 ####[facility] [address] [place], [address] GFR/1.73 sq M.predicted among non-blacks MDRD (S/P/Bld) [Vol rate/Area] 12 mL/min/{1.73_m2} Low >60 [facility] Comment on above: Result Comment: Non- GFR Calc Performed By: #### L 500.2500, L100.0100 ####[facility] [address] [place], [address] Glucose [Mass/Vol] 244 mg/dL High 74-106 [facility] Comment on above: Result Comment: Gluc ose result greater than or equal to 200 mg/dLsuggests DIABETES MELLITUS per A.D.A. criteria. Performed By: #### L 500.2500, L100.0100 ####[facility] [address] [place], [address] Potassium [Moles/Vol] 3.4 mmol/L Low 3.5-5.1 [facility] Comment on above: Performed By: #### L 500.2500, L100.0100 ####[facility] [address] [place], [address] Sodium [Moles/Vol] 132 mmol/L Low 136-145 [facility] Comment on above: Performed By: #### L 500.2500, L100.0100 ####[facility] [address] [place], [address] Urea nitrogen [Mass/Vol] 53 mg/dL High 7-18 [facility] Comment on above: Performed By: #### L 500.2500, L100.0100 ####[facility] [address] [place], [address] Bedside Glucoseon 07-14-2024 FINGERSTICK GLU 196 mg/dL High 74-106 [facility] Comment on above: Result Comment: FANG VAZQUEZ OF PATIENT CARE PER NURSING PROTOCOL Performed By: #### L 501.080 ####[facility] [address] [place], [address] FINGERSTICK GLU 103 mg/dL Normal 74-106 [facility] Comment on above: Result Comment: FANG GEMENT OF PATIENT CARE PER NURSING PROTOCOL Performed By: #### L 501.080 ####[facility] [address] [place], [address] FINGERSTICK GLU 183 mg/dL High 74-106 [facility] Comment on above: Result Comment: FANG GEMENT OF PATIENT CARE PER NURSING PROTOCOL Performed By: #### L 501.080 ####[facility] [address] [place], [address] FINGERSTICK GLU 239 mg/dL High 74-106 [facility] Comment on above: Result Comment: FANG GEMENT OF PATIENT CARE PER NURSING PROTOCOL Performed By: #### L 501.080 ####[facility] [address] [place], [address] CBC W/Diff, Automatedon 02-06 24-2024 Absolute Lymph 1.49 X10 3/uL Normal 0.83-4.51 [facility] Comment on above: Performed By: #### L 500.2500, L100.0100 ####[facility] [address] [place], [address] Absolute Neut 14.7 X10 3/uL High 2.0-7.7 [facility] Comment on above: Performed By: #### L 500.2500, L100.0100 ####[facility] [address] [place], [address] Basophils/100 WBC (Bld) 0.2 % Normal 0-1 [facility] Comment on above: Performed By: #### L 500.2500, L100.0100 ####[facility] [address] [place], [address] Eosinophils/100 WBC (Bld) 0.9 % Normal 0-5 [facility] Comment on above: Performed By: #### L 500.2500, L100.0100 ####[facility] [address] [place], [address] Erythrocyte distribution width (RBC) [Ratio] 17.6 % High 11.6-14.6 [facility] Comment on above: Performed By: #### L 500.2500, L100.0100 ####[facility] [address] [place], [address] Hematocrit (Bld) [Volume fraction] 25.3 % Low 40-54 [facility] Comment on above: Performed By: #### L 500.2500, L100.0100 ####[facility] [address] [place], [address] Hemoglobin (Bld) [Mass/Vol] 7.8 g/dL Low 13.0-16.5 [facility] Comment on above: Performed By: #### L 500.2500, L100.0100 ####[facility] [address] [place], [address] IG% 3.300 High 0.0-0.9 [facility] Comment on above: Result Comment: IG% - Immature Granulocytes (promyelocytes, myelocytes andmetamyelocytes) > 1% indicates that a LEFT SHIFT is Present. Performed By: #### L 500.2500, L100.0100 ####[facility] [address] [place], [address] Lymphocytes/100 WBC (Bld) 8.2 % Low 19-41 [facility] Comment on above: Performed By: #### L 500.2500, L100.0100 ####[facility] [address] [place], [address] MCH (RBC) [Entitic mass] 28.8 pg Normal 27.0-32.0 [facility] Comment on above: Performed By: #### L 500.2500, L100.0100 ####[facility] [address] [place], [address] MCHC (RBC) [Mass/Vol] 30.8 g/dL Low 32-36 [facility] Comment on above: Performed By: #### L 500.2500, L100.0100 ####[facility] [address] [place], [address] MCV (RBC) [Entitic vol] 93.4 fL Normal 80-94 [facility] Comment on above: Performed By: #### L 500.2500, L100.0100 ####[facility] [address] [place], [address] Monocytes/100 WBC (Bld) 7.2 % Normal 0-10 [facility] Comment on above: Performed By: #### L 500.2500, L100.0100 ####[facility] [address] [place], [address] Neutrophils/100 WBC (Bld) 80.2 % High 47-70 [facility] Comment on above: Performed By: #### L 500.2500, L100.0100 ####[facility] [address] [place], [address] Nucleated RBC (Bld) [#/Vol] 0 10*3/uL Normal 0-5 [facility] Comment on above: Performed By: #### L 500.2500, L100.0100 ####[facility] [address] [place], [address] Platelet mean volume (Bld) [Entitic vol] 10.6 fL Normal 6.2-12.0 [facility] Comment on above: Performed By: #### L 500.2500, L100.0100 ####[facility] [address] [place], [address] Platelets (Bld) [#/Vol] 346 10*3/uL Normal 150-450 [facility] Comment on above: Performed By: #### L 500.2500, L100.0100 ####[facility] [address] [place], [address] RBC (Bld) [#/Vol] 2.71 10*6/uL Low 4.6-6.2 [facility] Comment on above: Performed By: #### L 500.2500, L100.0100 ####[facility] [address] [place], [address] RDW SD 59.7 fl High 35.1-43.9 [facility] Comment on above: Performed By: #### L 500.2500, L100.0100 ####[facility] [address] [place], [address] WBC (Bld) [#/Vol] 18.3 10*3/uL High 4.4-11.0 [facility] Comment on above: Performed By: #### L 500.2500, L100.0100 ####[facility] [address] [place], [address] Echo Completeon 07-14-2024 Echo Complete Normal [facility] Gram Stainon 07-14-2024 GS Gram Stain 1+ Gram positive rods 4+ Gram positive cocci Rare White Blood Cells No Epithelial cells Normal [facility] Comment on above: Performed By: #### M 100.4001, M100.2000, M100.3000 ####[facility] [address] [place], [address] Vancomycin, Random Levelon 0 07-14-2024 VANCO, RANDOM 15.3 ug/mL High 0.0-15.0 [facility] Comment on above: Order Comment: Comme nts: please draw with AM labs Result Comment: VANC OMYCIN STANDARD DRUG THERAPY: CRITICAL VALUE IS > 15.0 mg/LVANCOMYCIN HIGH INTENSITY THERAPY: CRITICAL VALUE IS > 20.0 mg/LPLEASE CONTACT PHARMACY SERVICES (#8167) FOR INTERPRETATIONOF RESULTS. THIS RESULT DOES NOT REPRESENT A PEAK OR TROUGHLEVEL FOR THIS DRUG. Performed By: #### L 501.8850 ####[facility] [address] [place], [address] Anaerobic cultureOrdered By: Chung Humphreys on 07-13-2024 Bacteria identified Anaer cx Nom (Unsp spec) Clostridium perfringens Abnormal [facility] Basic Metabolic Profile (BMP )on 07-13-2024 BUN/CRE 8.5 RATIO Low 10-20 [facility] Comment on above: Performed By: #### L 101.9900, L501.6710, L500.2500, L100.0100 ####[facility] [address] [place], [address] CA,Total 8.9 mg/dL Normal 8.5-10.1 [facility] Comment on above: Performed By: #### L 101.9900, L501.6710, L500.2500, L100.0100 ####[facility] [address] [place], [address] Chloride [Moles/Vol] 93 mmol/L Low 98-107 [facility] Comment on above: Performed By: #### L 101.9900, L501.6710, L500.2500, L100.0100 ####[facility] [address] [place], [address] CO2 [Moles/Vol] 32.0 mmol/L Normal 21.0-32.0 [facility] Comment on above: Performed By: #### L 101.9900, L501.6710, L500.2500, L100.0100 ####[facility] [address] [place], [address] Creatinine [Mass/Vol] 4.35 mg/dL High 0.70-1.30 [facility] Comment on above: Result Comment: The validity of the calculated GFR GFRAA in patients over70 years has not been determined. Clinical correlation isessential. Performed By: #### L 101.9900, L501.6710, L500.2500, L100.0100 ####[facility] [address] [place], [address] ECRCL 13.09 ml/min Normal [facility] Comment on above: Performed By: #### L 101.9900, L501.6710, L500.2500, L100.0100 ####[facility] [address] [place], [address] EST GFR - AA 17 mL/min Low >60 [facility] Comment on above: Result Comment: Afri can [place] GFR Calc Performed By: #### L 101.9900, L501.6710, L500.2500, L100.0100 ####[facility] [address] [place], [address] GAP 8 Normal 5-15 [facility] Comment on above: Performed By: #### L 101.9900, L501.6710, L500.2500, L100.0100 ####[facility] [address] [place], [address] GFR/1.73 sq M.predicted among non-blacks MDRD (S/P/Bld) [Vol rate/Area] 14 mL/min/{1.73_m2} Low >60 [facility] Comment on above: Result Comment: Non- GFR Calc Performed By: #### L 101.9900, L501.6710, L500.2500, L100.0100 ####[facility] [address] [place], [address] Glucose [Mass/Vol] 132 mg/dL High 74-106 [facility] Comment on above: Result Comment: Fast ing Glucose result greater than or equal to 126 mg/dLsuggests DIABETES MELLITUS per A.D.A. criteria. Performed By: #### L 101.9900, L501.6710, L500.2500, L100.0100 ####[facility] [address] [place], [address] Potassium [Moles/Vol] 3.7 mmol/L Normal 3.5-5.1 [facility] Comment on above: Result Comment: Slig ht Hemolysis, Result may be falsely increased. Performed By: #### L 101.9900, L501.6710, L500.2500, L100.0100 ####[facility] [address] [place], [address] Sodium [Moles/Vol] 133 mmol/L Low 136-145 [facility] Comment on above: Performed By: #### L 101.9900, L501.6710, L500.2500, L100.0100 ####[facility] [address] [place], [address] Urea nitrogen [Mass/Vol] 37 mg/dL High 7-18 [facility] Comment on above: Performed By: #### L 101.9900, L501.6710, L500.2500, L100.0100 ####[facility] [address] [place], [address] Bedside Glucoseon 07-13-2024 FINGERSTICK GLU 231 mg/dL High 74-106 [facility] Comment on above: Result Comment: FANG GEMENT OF PATIENT CARE PER NURSING PROTOCOL Performed By: #### L 501.080 ####[facility] [address] [place], [address] Blood cultureOrdered By: Noelle Humphreys on 07-13-2024 Bacteria identified Cx Nom (Bld) Meth. resistant Staph. aureus Abnormal [facility] Blood manual differential co mment interpretation (narrative result)Ordered By: Chung Humphreys on 07-13-2024 Manual differential comment Jeff (Bld) [Interp] SEE COMMENT [facility] C-reactive protein measureme nt by high sensitivity methodOrdered By: Chung Humphreys on 07-13-2024 C-reactive protein measurement by high sensitivity method 301.00 mg/L High 0.0-3.0 [facility] CRPon 07-13-2024 C-REACTIVE PROT 301.00 mg/L High 0.0-3.0 [facility] Comment on above: Result Comment: C-Re active Protein (CRP) provides useful information for thediagnosis, therapy and monitoring of inflammatory processesand associated diseases. For the evaluation of Relative Riskfor Cardiovascular Disease, a High Sensitivity CRP (HSCRP)should be ordered. Performed By: #### L 101.9900, L501.6710, L500.2500, L100.0100 ####[facility] [address] [place], [place], [address] Chest PA and Lateralon 07-13 Chest PA and Lateral Normal [facility] Emergency Department Summary on 07-13-2024 Emergency Department Summary Normal [facility] Erythrocyte Sed Rateon 07-13 SED RATE 53 mm/hr High 0-20 [facility] Comment on above: Performed By: #### L 101.9900, L501.6710, L500.2500, L100.0100 ####[facility] [address] [place], [place], [address] Erythrocyte morphology asses smentOrdered By: Chung Humphreys on 07-13-2024 RBC morphology finding Nom (Bld) N CHROM NORMAL NORM C&C [facility] Erythrocyte sedimentation ra teOrdered By: Chung Humphreys on 07-13-2024 ESR (Bld) [Velocity] 53 mm/h High 0-20 [facility] Foot min 3 Viewson 5 Foot min 3 Views Normal [facility] Gram stainOrdered By: Kevin Humphreys on 07-13-2024 Microscopic observation Gram stain Nom (Unsp spec) [facility] H AND P Exam - Hospitaliston 07-13-2024 H&P Exam - Hospitalist Normal [facility] Hypochromatic red blood cell detectionOrdered By: Chung Humphreys on 07-13-2024 Hypochromia Ql (Bld) RARE [facility] Influenza virus A and B and SARS-CoV-2 (COVID-19) and Respiratory syncytial virus RNAOrdered By: Chung Humphreys on 07-13-2024 SARS-CoV-2 (COVID-19) RNA EZEKIEL+probe Ql (Unsp spec) [facility] M100.678on 07-13-2024 M100.678 SARS-CoV-2 (COVID 19 ) Negative INFLUENZA A Negative INFLUENZA B Negative RSV PCR Negative Normal [facility] Comment on above: Performed By: #### M 100.678 ####[facility] [address] [place], [place], [id number] Macrocytes detectionOrdered By: Chung Humphreys on 07-13-2024 Macrocytes Ql (Bld) 1+ [facility] No Panel InformationOrdered By: Chung Humphreys on 07-13-2024 1+ [facility] Organism identificationOrder ed By: Chung Humphreys on 07-13-2024 Microorganism identified Cx Nom (Unsp spec) Meth. resistant Staph. aureus Abnormal [facility] Platelet estimateOrdered By: Chung Humphreys on 07-13-2024 Platelets LM Ql (Bld) ADEQUATE ADEQ [facility] Routine wound cultureOrdered By: Chung Humphreys on 07-13-2024 Microbial culture, routine Meth. resistant Staph. aureus Abnormal [facility] Urinalysis, Completeon 07-13 BACTERIA Normal None Seen [facility] Comment on above: Order Comment: SENT LABEL TO MS3 TO COLLECTCOLLECTOR TO SPECIFY Result Comment: JAYY ENT DISCHARGED Performed By: #### L 400.0001 ####[facility] [address] [facility] [address] [place], [place], [id number] BILIRUBIN URINE Normal Negative [facility] Comment on above: Order Comment: SENT LABEL TO MS3 TO COLLECTCOLLECTOR TO SPECIFY Result Comment: JAYY ENT DISCHARGED Performed By: #### L 400.0001 ####[facility] [address] [place], [place], [id number] Clarity (U) Normal Clear [facility] Comment on above: Order Comment: SENT LABEL TO MS3 TO COLLECTCOLLECTOR TO SPECIFY Result Comment: JAYY ENT DISCHARGED Performed By: #### L 400.0001 ####[facility] [address] [place], [address] Color (U) Normal Yellow [facility] Comment on above: Order Comment: SENT LABEL TO MS3 TO COLLECTCOLLECTOR TO SPECIFY Result Comment: JAYY ENT DISCHARGED Performed By: #### L 400.0001 ####[facility] [address] [place], [address] EPI,SQUAMOUS Normal 0-5 [facility] Comment on above: Order Comment: SENT LABEL TO MS3 TO COLLECTCOLLECTOR TO SPECIFY Result Comment: JAYY ENT DISCHARGED Performed By: #### L 400.0001 ####[facility] [address] [place], [address] GLUCOSE, UR Normal Normal [facility] Comment on above: Order Comment: SENT LABEL TO MS3 TO COLLECTCOLLECTOR TO SPECIFY Result Comment: JAYY ENT DISCHARGED Performed By: #### L 400.0001 ####[facility] [address] [place], [address] KETONE UR Normal Negative [facility] Comment on above: Order Comment: SENT LABEL TO MS3 TO COLLECTCOLLECTOR TO SPECIFY Result Comment: JAYY ENT DISCHARGED Performed By: #### L 400.0001 ####[facility] [address] [place], [address] LEUK ESTERASE Normal Negative [facility] Comment on above: Order Comment: SENT LABEL TO MS3 TO COLLECTCOLLECTOR TO SPECIFY Result Comment: JAYY ENT DISCHARGED Performed By: #### L 400.0001 ####[facility] [address] [place], [address] Mucus Ql (Urine sed) Normal [facility] Comment on above: Order Comment: SENT LABEL TO MS3 TO COLLECTCOLLECTOR TO SPECIFY Result Comment: JAYY ENT DISCHARGED Performed By: #### L 400.0001 ####[facility] [address] [place], [address] Nitrite Ql (U) Normal Negative [facility] Comment on above: Order Comment: SENT LABEL TO MS3 TO COLLECTCOLLECTOR TO SPECIFY Result Comment: JAYY ENT DISCHARGED Performed By: #### L 400.0001 ####[facility] [address] [place], [address] OCCULT BLOOD-UR Normal Negative [facility] Comment on above: Order Comment: SENT LABEL TO MS3 TO COLLECTCOLLECTOR TO SPECIFY Result Comment: JAYY ENT DISCHARGED Performed By: #### L 400.0001 ####[facility] [address] [place], [address] pH UR Normal 5.0 - 8.0 [facility] Comment on above: Order Comment: SENT LABEL TO MS3 TO COLLECTCOLLECTOR TO SPECIFY Result Comment: JAYY ENT DISCHARGED Performed By: #### L 400.0001 ####[facility] [address] [place], [address] PROT DIPSTX Normal Negative [facility] Comment on above: Order Comment: SENT LABEL TO MS3 TO COLLECTCOLLECTOR TO SPECIFY Result Comment: JAYY ENT DISCHARGED Performed By: #### L 400.0001 ####[facility] [address] [place], [address] RBC Normal 0-5 [facility] Comment on above: Order Comment: SENT LABEL TO MS3 TO COLLECTCOLLECTOR TO SPECIFY Result Comment: JAYY ENT DISCHARGED Performed By: #### L 400.0001 ####[facility] [address] [place], [address] SP.GR. DIPSTX Normal 1.002-1.030 [facility] Comment on above: Order Comment: SENT LABEL TO MS3 TO COLLECTCOLLECTOR TO SPECIFY Result Comment: JAYY ENT DISCHARGED Performed By: #### L 400.0001 ####[facility] [address] [place], [address] UR Preservative Normal [facility] Comment on above: Order Comment: SENT LABEL TO MS3 TO COLLECTCOLLECTOR TO SPECIFY Result Comment: JAYY ENT DISCHARGED Performed By: #### L 400.0001 ####[facility] [address] [place], [place], [id number] UROBILI Normal Normal [facility] Comment on above: Order Comment: SENT LABEL TO MS3 TO COLLECTCOLLECTOR TO SPECIFY Result Comment: JAYY ENT DISCHARGED Performed By: #### L 400.0001 ####[facility] [address] [place], [address] WBC Normal 0-5 [facility] Comment on above: Order Comment: SENT LABEL TO MS3 TO COLLECTCOLLECTOR TO SPECIFY Result Comment: JAYY ENT DISCHARGED Performed By: #### L 400.0001 ####[facility] [address] [place], [address] Absolute lymphocyte countOrd ered By: Nando Wiggins on 07-09-2024 Lymphocytes Auto (Unsp spec) [#/Vol] 1.88 10*3/uL 0.83-4.51 [facility] Automated lymphocyte count a s percentage of total leukocytesOrdered By: Nando Wiggins on 07-09-2024 Lymphocytes/100 WBC Auto (Unsp spec) 12.0 % Low 19-41 [facility] Basophil percentageOrdered B y: Nando Wiggins on 07-09-2024 Basophils/100 WBC (Bld) 0.2 % 0-1 [facility] Carbon dioxide measurementOr dered By: Nando Wiggins on 07-09-2024 CO2 [Moles/Vol] 29.0 mmol/L 21.0-32.0 [facility] Chloride measurementOrdered By: Nando Wiggins on 07-09-2024 Chloride [Moles/Vol] 89 mmol/L Low 98-107 [facility] Eosinophil percentageOrdered By: Nando Wiggins on 07-09-2024 Eosinophils/100 WBC (Bld) 0.4 % 0-5 [facility] Erythrocyte distribution wid th ratioOrdered By: Nando Wiggins on 07-09-2024 Erythrocyte distribution width (RBC) [Ratio] 16.9 % High 11.6-14.6 [facility] Erythrocyte distribution wid th standard deviationOrdered By: Kathiefili Wiggins on 07-09-2024 Erythrocyte distribution width (RBC) [Ratio] 57.9 fl High 35.1-43.9 [facility] Glomerular filtration rate ( GFR) estimationOrdered By: fili Wiggins on 07-09-2024 GFR/1.73 sq M.predicted among non-blacks MDRD (S/P/Bld) [Vol rate/Area] 11 mL/min/{1.73_m2} Low >60 [facility] Glucose measurementOrdered B y: Brianwolf Wiggins on 07-09-2024 Glucose [Mass/Vol] 131 mg/dL High 74-106 [facility] Hematocrit Auto (Bld) [Volum e fraction]Ordered By: fili Wiggins on 07-09-2024 Hematocrit (Bld) [Volume fraction] 26.0 % Low 40-54 [facility] Hemoglobin measurementOrdere d By: Debsrinathwolf Wiggins on 07-09-2024 Hemoglobin (Bld) [Mass/Vol] 7.7 g/dL Low 13.0-16.5 [facility] Immature granulocytes/100 WB C Auto (Bld)Ordered By: Nando Wiggins on 07-09-2024 Immature granulocytes/100 WBC (Bld) 0.600 % 0.0-0.9 [facility] MCV (mean corpuscular volume ) determinationOrdered By: Nando Wiggins on 07-09-2024 MCV (RBC) [Entitic vol] 94.9 fL High 80-94 [facility] Mean corpuscular hemoglobin (MCH) determinationOrdered By: biancaissuewolf Wiggins on 07-09-2024 MCH (RBC) [Entitic mass] 28.1 pg 27.0-32.0 [facility] Monocyte percentageOrdered B y: Kathiebiancasrinathwolf Wiggins on 07-09-2024 Monocytes/100 WBC (Bld) 7.0 % 0-10 [facility] Neutrophil percentageOrdered By: Kathiefili Wiggins on 07-09-2024 Neutrophils/100 WBC (Bld) 79.8 % High 47-70 [facility] Platelet countOrdered By: Kathie Wiggins on 07-09-2024 Platelets (Bld) [#/Vol] 258 10*3/uL 150-450 [facility] Potassium measurementOrdered By: Nando Meeklakshminereida on 07-09-2024 Potassium [Moles/Vol] 3.6 mmol/L 3.5-5.1 [facility] RBC Auto (Bld) [#/Vol]Ordere d By: Nando Meekcheko on 07-09-2024 RBC (Bld) [#/Vol] 2.74 10*6/uL Low 4.6-6.2 [facility] Serum or plasma calcium lilli urement (mass/volume)Ordered By: Kathiebiancasrinathwolf Edenlakshminereida on 07-09-2024 Calcium [Mass/Vol] 9.2 mg/dL 8.5-10.1 [facility] Serum or plasma creatinine m easurement (mass/volume)Ordered By: Nando Meeklakshminereida on 07-09-2024 Creatinine [Mass/Vol] 5.11 mg/dL High 0.70-1.30 [facility] Serum or plasma urea nitroge n measurement (mass/volume)Ordered By: Nando Meekcheko on 07-09-2024 Urea nitrogen [Mass/Vol] 61 mg/dL High 7-18 [facility] Sodium levelOrdered By: Deb quintana Meeklakshminereida on 07-09-2024 Sodium [Moles/Vol] 129 mmol/L Low 136-145 [facility] White blood cell (WBC) count Ordered By: Kathiefili Edenlakshminereida on 07-09-2024 WBC (Bld) [#/Vol] 15.7 10*3/uL High 4.4-11.0 [facility] 12 Lead EKGon 07-07-2024 12 Lead EKG Normal [facility] Absolute lymphocyte countOrd ered By: Alicia Loo on 07-07-2024 Lymphocytes Auto (Unsp spec) [#/Vol] 1.18 10*3/uL 0.83-4.51 [facility] Automated lymphocyte count a s percentage of total leukocytesOrdered By: Alicia Loo on 07-07-2024 Lymphocytes/100 WBC Auto (Unsp spec) 13.1 % Low 19-41 [facility] Basic Metabolic Profile (BMP )on 07-07-2024 BUN/CRE 11.0 RATIO Normal 10-20 [facility] Comment on above: Order Comment: 'TROP ' Serial specimen #1, #2 or #3: 1 Performed By: #### L 500.2500, L100.0100, L501.4020 ####[facility] [address] [place], [address] CA,Total 8.5 mg/dL Normal 8.5-10.1 [facility] Comment on above: Order Comment: 'TROP ' Serial specimen #1, #2 or #3: 1 Performed By: #### L 500.2500, L100.0100, L501.4020 ####[facility] [address] [place], [address] Chloride [Moles/Vol] 91 mmol/L Low 98-107 [facility] Comment on above: Order Comment: 'TROP ' Serial specimen #1, #2 or #3: 1 Performed By: #### L 500.2500, L100.0100, L501.4020 ####[facility] [address] [place], [address] CO2 [Moles/Vol] 33.0 mmol/L High 21.0-32.0 [facility] Comment on above: Order Comment: 'TROP ' Serial specimen #1, #2 or #3: 1 Performed By: #### L 500.2500, L100.0100, L501.4020 ####[facility] [address] [place], [address] Creatinine [Mass/Vol] 3.01 mg/dL High 0.70-1.30 [facility] Comment on above: Order Comment: 'TROP ' Serial specimen #1, #2 or #3: 1 Result Comment: The validity of the calculated GFR GFRAA in patients over70 years has not been determined. Clinical correlation isessential. Performed By: #### L 500.2500, L100.0100, L501.4020 ####[facility] [address] [place], [address] ECRCL 19.28 ml/min Normal [facility] Comment on above: Order Comment: 'TROP ' Serial specimen #1, #2 or #3: 1 Performed By: #### L 500.2500, L100.0100, L501.4020 ####[facility] [address] [place], [address] EST GFR - AA 26 mL/min Low >60 [facility] Comment on above: Order Comment: 'TROP ' Serial specimen #1, #2 or #3: 1 Result Comment: Afri can [place] GFR Calc Performed By: #### L 500.2500, L100.0100, L501.4020 ####[facility] [address] [place], [address] GAP 8 Normal 5-15 [facility] Comment on above: Order Comment: 'TROP ' Serial specimen #1, #2 or #3: 1 Performed By: #### L 500.2500, L100.0100, L501.4020 ####[facility] [address] [place], [address] GFR/1.73 sq M.predicted among non-blacks MDRD (S/P/Bld) [Vol rate/Area] 21 mL/min/{1.73_m2} Low >60 [facility] Comment on above: Order Comment: 'TROP ' Serial specimen #1, #2 or #3: 1 Result Comment: Non- GFR Calc Performed By: #### L 500.2500, L100.0100, L501.4020 ####[facility] [address] [place], [address] Glucose [Mass/Vol] 157 mg/dL High 74-106 [facility] Comment on above: Order Comment: 'TROP ' Serial specimen #1, #2 or #3: 1 Result Comment: Fast ing Glucose result greater than or equal to 126 mg/dLsuggests DIABETES MELLITUS per A.D.A. criteria. Performed By: #### L 500.2500, L100.0100, L501.4020 ####[facility] [address] [place], [address] Potassium [Moles/Vol] 3.4 mmol/L Low 3.5-5.1 [facility] Comment on above: Order Comment: 'TROP ' Serial specimen #1, #2 or #3: 1 Performed By: #### L 500.2500, L100.0100, L501.4020 ####[facility] [address] [place], [address] Sodium [Moles/Vol] 132 mmol/L Low 136-145 [facility] Comment on above: Order Comment: 'TROP ' Serial specimen #1, #2 or #3: 1 Performed By: #### L 500.2500, L100.0100, L501.4020 ####[facility] [address] [place], [address] Urea nitrogen [Mass/Vol] 33 mg/dL High 7-18 [facility] Comment on above: Order Comment: 'TROP ' Serial specimen #1, #2 or #3: 1 Performed By: #### L 500.2500, L100.0100, L501.4020 ####[facility] [address] [place], [address] Basophil percentageOrdered B y: Remus Ungur on 07-07-2024 Basophils/100 WBC (Bld) 0.3 % 0-1 [facility] Bilirubin Test strip Ql (U)O rdered By: Remus Ungur on 07-07-2024 Bilirubin Ql (U) 1 mg/dL High Negative [facility] Brain/Head without Contrasto n 07-07-2024 Brain/Head without Contrast Normal [facility] CBC W/Diff, Automatedon 06-23 Absolute Lymph 1.18 X10 3/uL Normal 0.83-4.51 [facility] Comment on above: Performed By: #### L 500.2500, L100.0100, L501.4020 ####[facility] [address] [place], [address] Absolute Neut 6.7 X10 3/uL Normal 2.0-7.7 [facility] Comment on above: Performed By: #### L 500.2500, L100.0100, L501.4020 ####[facility] [address] [place], [address] Basophils/100 WBC (Bld) 0.3 % Normal 0-1 [facility] Comment on above: Performed By: #### L 500.2500, L100.0100, L501.4020 ####[facility] [address] [place], [address] Eosinophils/100 WBC (Bld) 0.1 % Normal 0-5 [facility] Comment on above: Performed By: #### L 500.2500, L100.0100, L501.4020 ####[facility] [address] [place], [address] Erythrocyte distribution width (RBC) [Ratio] 16.6 % High 11.6-14.6 [facility] Comment on above: Performed By: #### L 500.2500, L100.0100, L501.4020 ####[facility] [address] [place], [address] Hematocrit (Bld) [Volume fraction] 27.0 % Low 40-54 [facility] Comment on above: Performed By: #### L 500.2500, L100.0100, L501.4020 ####[facility] [address] [place], [address] Hemoglobin (Bld) [Mass/Vol] 8.1 g/dL Low 13.0-16.5 [facility] Comment on above: Performed By: #### L 500.2500, L100.0100, L501.4020 ####[facility] [address] [place], [address] IG% 0.300 Normal 0.0-0.9 [facility] Comment on above: Result Comment: IG% - Immature Granulocytes (promyelocytes, myelocytes andmetamyelocytes) > 1% indicates that a LEFT SHIFT is Present. Performed By: #### L 500.2500, L100.0100, L501.4020 ####[facility] [address] [place], [address] Lymphocytes/100 WBC (Bld) 13.1 % Low 19-41 [facility] Comment on above: Performed By: #### L 500.2500, L100.0100, L501.4020 ####[facility] [address] [place], [address] MCH (RBC) [Entitic mass] 28.4 pg Normal 27.0-32.0 [facility] Comment on above: Performed By: #### L 500.2500, L100.0100, L501.4020 ####[facility] [address] [place], [address] MCHC (RBC) [Mass/Vol] 30.0 g/dL Low 32-36 [facility] Comment on above: Performed By: #### L 500.2500, L100.0100, L501.4020 ####[facility] [address] [place], [address] MCV (RBC) [Entitic vol] 94.7 fL High 80-94 [facility] Comment on above: Performed By: #### L 500.2500, L100.0100, L501.4020 ####[facility] [address] [place], [address] Monocytes/100 WBC (Bld) 11.4 % High 0-10 [facility] Comment on above: Performed By: #### L 500.2500, L100.0100, L501.4020 ####[facility] [address] [place], [address] Neutrophils/100 WBC (Bld) 74.8 % High 47-70 [facility] Comment on above: Performed By: #### L 500.2500, L100.0100, L501.4020 ####[facility] [address] [place], [address] Nucleated RBC (Bld) [#/Vol] 0 10*3/uL Normal 0-5 [facility] Comment on above: Performed By: #### L 500.2500, L100.0100, L501.4020 ####[facility] [address] [place], [address] Platelet mean volume (Bld) [Entitic vol] 10.7 fL Normal 6.2-12.0 [facility] Comment on above: Performed By: #### L 500.2500, L100.0100, L501.4020 ####[facility] [address] [place], [address] Platelets (Bld) [#/Vol] 211 10*3/uL Normal 150-450 [facility] Comment on above: Performed By: #### L 500.2500, L100.0100, L501.4020 ####[facility] [address] [place], [address] RBC (Bld) [#/Vol] 2.85 10*6/uL Low 4.6-6.2 [facility] Comment on above: Performed By: #### L 500.2500, L100.0100, L501.4020 ####[facility] [address] [place], [address] RDW SD 56.3 fl High 35.1-43.9 [facility] Comment on above: Performed By: #### L 500.2500, L100.0100, L501.4020 ####[facility] [address] [place], [address] WBC (Bld) [#/Vol] 9.0 10*3/uL Normal 4.4-11.0 [facility] Comment on above: Performed By: #### L 500.2500, L100.0100, L501.4020 ####[facility] [address] [place], [address] Carbon dioxide measurementOr dered By: Alicia Loo on 07-07-2024 CO2 [Moles/Vol] 33.0 mmol/L High 21.0-32.0 [facility] Chest 1 View (Portable)on Chest 1 View (Portable) Normal [facility] Chloride measurementOrdered By: Alicia Loo on 07-07-2024 Chloride [Moles/Vol] 91 mmol/L Low 98-107 [facility] Emergency Department Summary on 07-07-2024 Emergency Department Summary Normal [facility] Eosinophil percentageOrdered By: Alicia Loo on 07-07-2024 Eosinophils/100 WBC (Bld) 0.1 % 0-5 [facility] Erythrocyte distribution wid th ratioOrdered By: Alicia Loo on 07-07-2024 Erythrocyte distribution width (RBC) [Ratio] 16.6 % High 11.6-14.6 [facility] Erythrocyte distribution wid th standard deviationOrdered By: Alicia Loo on 07-07-2024 Erythrocyte distribution width (RBC) [Ratio] 56.3 fl High 35.1-43.9 [facility] Glomerular filtration rate ( GFR) estimationOrdered By: Alicia Loo on 07-07-2024 GFR/1.73 sq M.predicted among non-blacks MDRD (S/P/Bld) [Vol rate/Area] 21 mL/min/{1.73_m2} Low >60 [facility] Glucose measurementOrdered B y: Alicia Loo on 07-07-2024 Glucose [Mass/Vol] 157 mg/dL High 74-106 [facility] Hematocrit Auto (Bld) [Volum e fraction]Ordered By: Alicia Loo on 07-07-2024 Hematocrit (Bld) [Volume fraction] 27.0 % Low 40-54 [facility] Hemoglobin measurementOrdere d By: Alicia Loo on 07-07-2024 Hemoglobin (Bld) [Mass/Vol] 8.1 g/dL Low 13.0-16.5 [facility] Immature granulocytes/100 WB C Auto (Bld)Ordered By: Alicia Loo on 07-07-2024 Immature granulocytes/100 WBC (Bld) 0.300 % 0.0-0.9 [facility] Influenza virus A and B and SARS-CoV-2 (COVID-19) and Respiratory syncytial virus RNAOrdered By: Alicia Loo on 07-07-2024 SARS-CoV-2 (COVID-19) RNA EZEKIEL+probe Ql (Unsp spec) [facility] Ketones Test strip Ql (U)Ord ered By: Alicia Loo on 07-07-2024 Ketones Ql (U) 5 mg/dl High Negative [facility] L501.4020on 07-07-2024 TROPONIN-I HS 62 pg/mL Normal 3.0-78.0 [facility] Comment on above: Order Comment: 'TROP ' Serial specimen #1, #2 or #3: 1 Result Comment: Zoë mazariegos Note: New Test Units and Gender Specific Reference Ranges. For more information see Policy Stat Procedure [place] High Sensitivity Troponin (TNIH) and attachments. Performed By: #### L 500.2500, L100.0100, L501.4020 ####[facility] [address] [place], [address] M100.678on 07-07-2024 M100.678 Pending SARS-CoV-2 (COVID 19) Negative INFLUENZA A Negative INFLUENZA B Negative RSV PCR Negative Normal [facility] Comment on above: Performed By: #### M 100.678 ####[facility] [address] [place], [address] MCV (mean corpuscular volume ) determinationOrdered By: Alicia Loo on 07-07-2024 MCV (RBC) [Entitic vol] 94.7 fL High 80-94 [facility] Mean corpuscular hemoglobin (MCH) determinationOrdered By: Alicia Loo on 07-07-2024 MCH (RBC) [Entitic mass] 28.4 pg 27.0-32.0 [facility] Monocyte percentageOrdered B y: Alicia Loo on 07-07-2024 Monocytes/100 WBC (Bld) 11.4 % High 0-10 [facility] Mucus LM Ql (Urine sed)Order ed By: Alicia Loo on 07-07-2024 Mucus Ql (Urine sed) 0 SEEN /hpf [facility] Neutrophil percentageOrdered By: Alicia Loo on 07-07-2024 Neutrophils/100 WBC (Bld) 74.8 % High 47-70 [facility] Nitrite Test strip Ql (U)Ord ered By: Alicia Loo on 07-07-2024 Nitrite Ql (U) Negative Negative [facility] Platelet countOrdered By: Sowmya Loo on 07-07-2024 Platelets (Bld) [#/Vol] 211 10*3/uL 150-450 [facility] Potassium measurementOrdered By: Alicia Loo on 07-07-2024 Potassium [Moles/Vol] 3.4 mmol/L Low 3.5-5.1 [facility] Protein Test strip Ql (U)Ord ered By: Alicia Loo on 07-07-2024 Protein Ql (U) 100 mg/dl High Negative [facility] RBC Auto (Bld) [#/Vol]Ordere d By: Alicia Loo on 07-07-2024 RBC (Bld) [#/Vol] 2.85 10*6/uL Low 4.6-6.2 [facility] Serum or plasma calcium lilli urement (mass/volume)Ordered By: Alicia Loo on 07-07-2024 Calcium [Mass/Vol] 8.5 mg/dL 8.5-10.1 [facility] Serum or plasma creatinine m easurement (mass/volume)Ordered By: Alicia Loo on 07-07-2024 Creatinine [Mass/Vol] 3.01 mg/dL High 0.70-1.30 [facility] Serum or plasma urea nitroge n measurement (mass/volume)Ordered By: Alicia Loo on 07-07-2024 Urea nitrogen [Mass/Vol] 33 mg/dL High 7-18 [facility] Sodium levelOrdered By: Michael Loo on 07-07-2024 Sodium [Moles/Vol] 132 mmol/L Low 136-145 [facility] Squamous epithelial cells de tection in urine sediment by light microscopyOrdered By: Alicia Loo on 07-07-2024 Epithelial cells.squamous LM Ql (Urine sed) 0 SEEN /hpf 0-5 [facility] Troponin IOrdered By: Alicia Loo on 07-07-2024 Troponin I 62 pg/mL 3.0-78.0 [facility] Urinalysis, Completeon 07-07 RBC 0 SEEN Normal 0-5 [facility] Comment on above: Order Comment: COLOR OF URINE MAY AFFECT DIPSTICK RESULTS.CLEAN CATCH Performed By: #### L 400.0001 ####[facility] [address] [place], [address] WBC 0-5 SEEN Normal 0-5 [facility] Comment on above: Order Comment: COLOR OF URINE MAY AFFECT DIPSTICK RESULTS.CLEAN CATCH Performed By: #### L 400.0001 ####[facility] [address] [place], [address] BACTERIA 0 SEEN Normal None Seen [facility] Comment on above: Order Comment: COLOR OF URINE MAY AFFECT DIPSTICK RESULTS.CLEAN CATCH Performed By: #### L 400.0001 ####[facility] [address] [place], [address] EPI,SQUAMOUS 0 SEEN Normal 0-5 [facility] Comment on above: Order Comment: COLOR OF URINE MAY AFFECT DIPSTICK RESULTS.CLEAN CATCH Performed By: #### L 400.0001 ####[facility] [address] [place], [address] Mucus Ql (Urine sed) 0 SEEN Normal [facility] Comment on above: Order Comment: COLOR OF URINE MAY AFFECT DIPSTICK RESULTS.CLEAN CATCH Performed By: #### L 400.0001 ####[facility] [address] [place], [address] Urine clarityOrdered By: Kae Loo on 07-07-2024 Clarity (U) Clear Clear [facility] Urine color determinationOrd ered By: Alicia Loo on 07-07-2024 Color (U) Lilia Yellow [facility] Urine glucose detectionOrder ed By: Alicia Loo on 07-07-2024 Glucose Ql (U) 50 mg/dl High Normal [facility] Urine leukocyte esterase det ection by dipstickOrdered By: Alicia Loo on 07-07-2024 Leukocyte esterase Test strip Ql (U) 25 /ul High Negative [facility] Urine pHOrdered By: Alicia Un gur on 07-07-2024 pH (U) 5.0 [pH] 5.0 - 8.0 [facility] Urine sediment bacteria coun t by microscopy (number/high power field)Ordered By: Alicia Loo on 07-07-2024 Bacteria LM.HPF (Urine sed) [#/Area] 0 /[HPF] None Seen [facility] Urine specific gravity measu rementOrdered By: Alicia Loo on 07-07-2024 Specific gravity (U) [Rel density] 1.015 1.002-1.030 [facility] Urine urobilinogen measureme ntOrdered By: Alicia Loo on 07-07-2024 Urobilinogen Ql (U) Normal mg/dl Normal [facility] White blood cell (WBC) count Ordered By: Alicia Loo on 07-07-2024 WBC (Bld) [#/Vol] 9.0 10*3/uL 4.4-11.0 [facility] White blood cell countOrdere d By: Alicia Loo on 07-07-2024 White blood cell count 0-5 SEEN /hpf 0-5 [facility] Bedside Glucoseon 07-04-2024 FINGERSTICK GLU 114 mg/dL High 74-106 [facility] Comment on above: Result Comment: FANG VAZQUEZ OF PATIENT CARE PER NURSING PROTOCOL Performed By: #### L 501.080 ####[facility] [address] [place], [address] [facility] deOrdered By: Des Ruelas on 07-04-2024 Glucose [Mass/Vol] 114 mg/dL High 74-106 [facility] Absolute lymphocyte countOrd ered By: Eric Franklin on 07-03-2024 Lymphocytes Auto (Unsp spec) [#/Vol] 1.08 10*3/uL 0.83-4.51 [facility] Automated blood erythrocyte countOrdered By: Eric Franklin on 07-03-2024 RBC (Bld) [#/Vol] 2.75 10*6/uL Low 4.6-6.2 [facility] Comment on above: Performed By: #### L 100.0100, L500.4050 ####[facility] [address] [place], [address] Automated blood hematocrit ( percentage)Ordered By: Eric Franklin on 07-03-2024 Hematocrit (Bld) [Volume fraction] 25.7 % Low 40-54 [facility] Comment on above: Performed By: #### L 100.0100, L500.4050 ####[facility] [address] [place], [address] Automated lymphocyte count a s percentage of total leukocytesOrdered By: Eric Franklin on 07-03-2024 Lymphocytes/100 WBC Auto (Unsp spec) 12.6 % Low 19-41 [facility] Basophil percentageOrdered B y: Eric Franklin on 07-03-2024 Basophils/100 WBC (Bld) 0.2 % Normal 0-1 [facility] Comment on above: Performed By: #### L 100.0100, L500.4050 ####[facility] [address] [place], [address] Bilirubin, totalOrdered By: Eric Franklin on 07-03-2024 Bilirubin [Mass/Vol] 0.60 mg/dL Normal 0.20-1.00 [facility] Comment on above: Result Comment: For patients on eltrombopag therapy, use of Dimension [place] TBIL is not recommended. Performed By: #### L 100.0100, L500.4050 ####[facility] [address] [place], [address] CBC W/Diff, Automatedon 06-23 Absolute Lymph 1.08 X10 3/uL Normal 0.83-4.51 [facility] Comment on above: Performed By: #### L 100.0100, L500.4050 ####[facility] [address] [place], [address] Absolute Neut 6.2 X10 3/uL Normal 2.0-7.7 [facility] Comment on above: Performed By: #### L 100.0100, L500.4050 ####[facility] [address] [place], [address] IG% 0.700 Normal 0.0-0.9 [facility] Comment on above: Result Comment: IG% - Immature Granulocytes (promyelocytes, myelocytes andmetamyelocytes) > 1% indicates that a LEFT SHIFT is Present. Performed By: #### L 100.0100, L500.4050 ####[facility] [address] [place], [address] Lymphocytes/100 WBC (Bld) 12.6 % Low 19-41 [facility] Comment on above: Performed By: #### L 100.0100, L500.4050 ####[facility] [address] [place], [address] MCHC (RBC) [Mass/Vol] 31.5 g/dL Low 32-36 [facility] Comment on above: Performed By: #### L 100.0100, L500.4050 ####[facility] [address] [place], [address] Nucleated RBC (Bld) [#/Vol] 0 10*3/uL Normal 0-5 [facility] Comment on above: Performed By: #### L 100.0100, L500.4050 ####[facility] [address] [place], [address] Platelet mean volume (Bld) [Entitic vol] 11.1 fL Normal 6.2-12.0 [facility] Comment on above: Performed By: #### L 100.0100, L500.4050 ####[facility] [address] [place], [address] RDW SD 56.7 fl High 35.1-43.9 [facility] Comment on above: Performed By: #### L 100.0100, L500.4050 ####[facility] [address] [place], [address] Carbon dioxide measurementOr dered By: Eric Franklin on 07-03-2024 CO2 [Moles/Vol] 27.0 mmol/L Normal 21.0-32.0 [facility] Comment on above: Performed By: #### L 100.0100, L500.4050 ####[facility] [address] [place], [address] Chloride measurementOrdered By: Eric Franklin on 07-03-2024 Chloride [Moles/Vol] 96 mmol/L Low 98-107 [facility] Comment on above: Performed By: #### L 100.0100, L500.4050 ####[facility] [address] [place], [address] Comprehensive Metabolic Prof ilon 07-03-2024 Albumin/Globulin [Mass ratio] 0.5 {ratio} Low 0.9-2.4 [facility] Comment on above: Performed By: #### L 100.0100, L500.4050 ####[facility] [address] [place], [address] ALK P 63 U/L Normal 45-117 [facility] Comment on above: Performed By: #### L 100.0100, L500.4050 ####[facility] [address] [place], [address] AST [Catalytic activity/Vol] 26 U/L Normal 15-37 [facility] Comment on above: Result Comment: Mode rate Hemolysis, Result may be falsely increased. Performed By: #### L 100.0100, L500.4050 ####[facility] [address] [place], [address] BUN/CRE 12.2 RATIO Normal 10-20 [facility] Comment on above: Performed By: #### L 100.0100, L500.4050 ####[facility] [address] [place], [address] CA,Total 8.1 mg/dL Low 8.5-10.1 [facility] Comment on above: Performed By: #### L 100.0100, L500.4050 ####[facility] [address] [place], [address] ECRCL 20.19 ml/min Normal [facility] Comment on above: Performed By: #### L 100.0100, L500.4050 ####[facility] [address] [place], [address] EST GFR - AA 25 mL/min Low >60 [facility] Comment on above: Result Comment: Afri can Mauritanian GFR Calc Performed By: #### L 100.0100, L500.4050 ####[facility] [address] [place], [address] GAP 11 Normal 5-15 [facility] Comment on above: Performed By: #### L 100.0100, L500.4050 ####[facility] [address] [place], [address] T PROT 7.1 g/dL Normal 6.4-8.2 [facility] Comment on above: Performed By: #### L 100.0100, L500.4050 ####[facility] [address] [place], [address] Emergency Department Summary on 07-03-2024 Emergency Department Summary Normal [facility] Eosinophil percentageOrdered By: Eric Franklin on 07-03-2024 Eosinophils/100 WBC (Bld) 0.3 % Normal 0-5 [facility] Comment on above: Performed By: #### L 100.0100, L500.4050 ####[facility] [address] [place], [address] Erythrocyte distribution wid th ratioOrdered By: Eric Franklin on 07-03-2024 Erythrocyte distribution width (RBC) [Ratio] 17.2 % High 11.6-14.6 [facility] Comment on above: Performed By: #### L 100.0100, L500.4050 ####[facility] [address] [place], [address] Erythrocyte distribution wid th standard deviationOrdered By: Eric Franklin on 07-03-2024 Erythrocyte distribution width (RBC) [Ratio] 56.7 fl High 35.1-43.9 [facility] Glomerular filtration rate ( GFR) estimationOrdered By: Eric Franklin on 07-03-2024 GFR/1.73 sq M.predicted among non-blacks MDRD (S/P/Bld) [Vol rate/Area] 21 mL/min/{1.73_m2} Low >60 [facility] Comment on above: Result Comment: Non- GFR Calc Performed By: #### L 100.0100, L500.4050 ####[facility] [address] [place], [address] Glucose measurementOrdered B y: Eric Franklin on 07-03-2024 Glucose [Mass/Vol] 161 mg/dL High 74-106 [facility] Comment on above: Result Comment: Fast ing Glucose result greater than or equal to 126 mg/dLsuggests DIABETES MELLITUS per A.D.A. criteria. Performed By: #### L 100.0100, L500.4050 ####[facility] [address] [place], [address] Hemoglobin measurementOrdere d By: Eric Franklin on 07-03-2024 Hemoglobin (Bld) [Mass/Vol] 8.1 g/dL Low 13.0-16.5 [facility] Comment on above: Performed By: #### L 100.0100, L500.4050 ####[facility] [address] [place], [address] Immature granulocytes/100 WB C Auto (Bld)Ordered By: Eric Franklin on 07-03-2024 Immature granulocytes/100 WBC (Bld) 0.700 % 0.0-0.9 [facility] MCV (mean corpuscular volume ) determinationOrdered By: Ericjorge Franklin on 07-03-2024 MCV (RBC) [Entitic vol] 93.5 fL Normal 80-94 [facility] Comment on above: Performed By: #### L 100.0100, L500.4050 ####[facility] [address] [place], [address] Mean corpuscular hemoglobin (MCH) determinationOrdered By: Ericjorge Franklin on 07-03-2024 MCH (RBC) [Entitic mass] 29.5 pg Normal 27.0-32.0 [facility] Comment on above: Performed By: #### L 100.0100, L500.4050 ####[facility] [address] [place], [address] Monocyte percentageOrdered B y: Eric Franklin on 07-03-2024 Monocytes/100 WBC (Bld) 14.5 % High 0-10 [facility] Comment on above: Performed By: #### L 100.0100, L500.4050 ####[facility] [address] [place], [address] Neutrophil percentageOrdered By: Eric Lechugao on 07-03-2024 Neutrophils/100 WBC (Bld) 71.7 % High 47-70 [facility] Comment on above: Performed By: #### L 100.0100, L500.4050 ####[facility] [address] [place], [address] No Panel InformationOrdered By: Eric Lechugao on 07-03-2024 26 U/L 15-37 [facility] Platelet countOrdered By: [facility] Franklin on 07-03-2024 Platelets (Bld) [#/Vol] 194 10*3/uL Normal 150-450 [facility] Comment on above: Performed By: #### L 100.0100, L500.4050 ####[facility] [address] [place], [address] Potassium measurementOrdered By: Eric Lechugao on 07-03-2024 Potassium [Moles/Vol] 4.2 mmol/L Normal 3.5-5.1 [facility] Comment on above: Result Comment: Mode rate Hemolysis, Result may be falsely increased. Performed By: #### L 100.0100, L500.4050 ####[facility] [address] [place], [address] Serum globulin measurementOr dered By: Eric Franklin on 07-03-2024 Globulin (S) [Mass/Vol] 4.7 g/dL High 2.2-4.2 [facility] Comment on above: Performed By: #### L 100.0100, L500.4050 ####[facility] [address] [place], [address] Serum or plasma alanine hawkins otransferase (ALT) measurementOrdered By: Ericjorge Lechugao on 07-03-2024 ALT [Catalytic activity/Vol] 13 U/L Low 16-61 [facility] Comment on above: Performed By: #### L 100.0100, L500.4050 ####[facility] [address] [place], [address] Serum or plasma albumin lilli urement (mass/volume)Ordered By: Eric Franklin on 07-03-2024 Albumin [Mass/Vol] 2.4 g/dL Low 3.2-5.0 [facility] Comment on above: Performed By: #### L 100.0100, L500.4050 ####[facility] [address] [place], [address] Serum or plasma alkaline penelope sphatase measurementOrdered By: Eric Franklin on 07-03-2024 ALP [Catalytic activity/Vol] 63 U/L 45-117 [facility] Serum or plasma calcium lilli urement (mass/volume)Ordered By: Eric Franklin on 07-03-2024 Calcium [Mass/Vol] 8.1 mg/dL Low 8.5-10.1 [facility] Serum or plasma creatinine m easurement (mass/volume)Ordered By: Eric Franklin on 07-03-2024 Creatinine [Mass/Vol] 3.04 mg/dL High 0.70-1.30 [facility] Comment on above: Result Comment: The validity of the calculated GFR GFRAA in patients over70 years has not been determined. Clinical correlation isessential. Performed By: #### L 100.0100, L500.4050 ####[facility] [address] [place], [address] Serum or plasma urea nitroge n measurement (mass/volume)Ordered By: Eric Franklin on 07-03-2024 Urea nitrogen [Mass/Vol] 37 mg/dL High 7-18 [facility] Comment on above: Performed By: #### L 100.0100, L500.4050 ####[facility] [address] [place], [address] Sodium levelOrdered By: Eric Franklin on 07-03-2024 Sodium [Moles/Vol] 134 mmol/L Low 136-145 [facility] Comment on above: Performed By: #### L 100.0100, L500.4050 ####[facility] [address] [place], [address] Total proteinOrdered By: Eric Franklin on 07-03-2024 Protein [Mass/Vol] 7.1 g/dL 6.4-8.2 [facility] White blood cell (WBC) count Ordered By: Eric Franklin on 07-03-2024 WBC (Bld) [#/Vol] 8.6 10*3/uL Normal 4.4-11.0 [facility] Comment on above: Performed By: #### L 100.0100, L500.4050 ####[facility] [address] [place], [address] 12 Lead EKGon 07-02-2024 12 Lead EKG Normal [facility] Absolute lymphocyte countOrd ered By: Nando Wiggins on 07-02-2024 Lymphocytes Auto (Unsp spec) [#/Vol] 1.88 10*3/uL 0.83-4.51 [facility] Automated lymphocyte count a s percentage of total leukocytesOrdered By: Nando Wiggins on 07-02-2024 Lymphocytes/100 WBC Auto (Unsp spec) 20.3 % 19-41 [facility] Basic Metabolic Profile (BMP )on 07-02-2024 BUN/CRE 18.1 RATIO Normal 10-20 [facility] Comment on above: Performed By: #### L 500.2500 ####[facility] [address] [place], [address] CA,Total 9.1 mg/dL Normal 8.5-10.1 [facility] Comment on above: Performed By: #### L 500.2500 ####[facility] [address] [place], [address] Chloride [Moles/Vol] 98 mmol/L Normal 98-107 [facility] Comment on above: Performed By: #### L 500.2500 ####[facility] [address] [place], [address] CO2 [Moles/Vol] 26.0 mmol/L Normal 21.0-32.0 [facility] Comment on above: Performed By: #### L 500.2500 ####[facility] [address] [place], [address] Creatinine [Mass/Vol] 4.63 mg/dL High 0.70-1.30 [facility] Comment on above: Result Comment: The validity of the calculated GFR GFRAA in patients over70 years has not been determined. Clinical correlation isessential. Performed By: #### L 500.2500 ####[facility] [address] [place], [address] ECRCL 12.30 ml/min Normal [facility] Comment on above: Performed By: #### L 500.2500 ####[facility] [address] [place], [address] EST GFR - AA 16 mL/min Low >60 [facility] Comment on above: Result Comment: Afri can Mauritanian GFR Calc Performed By: #### L 500.2500 ####[facility] [address] [place], [address] GAP 9 Normal 5-15 [facility] Comment on above: Performed By: #### L 500.2500 ####[facility] [address] [place], [address] GFR/1.73 sq M.predicted among non-blacks MDRD (S/P/Bld) [Vol rate/Area] 13 mL/min/{1.73_m2} Low >60 [facility] Comment on above: Result Comment: Non- GFR Calc Performed By: #### L 500.2500 ####[facility] [address] [place], [address] Glucose [Mass/Vol] 134 mg/dL High 74-106 [facility] Comment on above: Result Comment: Fast ing Glucose result greater than or equal to 126 mg/dLsuggests DIABETES MELLITUS per A.D.A. criteria. Performed By: #### L 500.2500 ####[facility] [address] [place], [place], [phone]) Potassium [Moles/Vol] 4.3 mmol/L Normal 3.5-5.1 [facility] Comment on above: Performed By: #### L 500.2500 ####[facility] [address] [place], [address] Sodium [Moles/Vol] 133 mmol/L Low 136-145 [facility] Comment on above: Performed By: #### L 500.2500 ####[facility] [address] [place], [place], [phone]) Urea nitrogen [Mass/Vol] 84 mg/dL High 7-18 [facility] Comment on above: Performed By: #### L 500.2500 ####[facility] [address] [place], [place], [phone]) Basophil percentageOrdered B y: Nando Wiggins on 07-02-2024 Basophils/100 WBC (Bld) 0.3 % 0-1 [facility] Bedside Glucoseon 07-02-2024 FINGERSTICK GLU 230 mg/dL High 74-106 [facility] Comment on above: Result Comment: FANG VAZQUEZ OF PATIENT CARE PER NURSING PROTOCOL Performed By: #### L 501.080 ####[facility] [address] [place], [place], [phone] Carbon dioxide measurementOr dered By: Fernando Oliveros on 07-02-2024 CO2 [Moles/Vol] 26.0 mmol/L 21.0-32.0 [facility] Carbon dioxide measurementOr dered By: Nando Wiggins on 07-02-2024 CO2 [Moles/Vol] 25.0 mmol/L 21.0-32.0 [facility] Chloride measurementOrdered By: Fernando Oliveros on 07-02-2024 Chloride [Moles/Vol] 98 mmol/L 98-107 [facility] Chloride measurementOrdered By: Nando Wiggins on 07-02-2024 Chloride [Moles/Vol] 96 mmol/L Low 98-107 [facility] Emergency Department Summary on 07-02-2024 Emergency Department Summary Normal [facility] Eosinophil percentageOrdered By: Debongwolf Wiggins on 07-02-2024 Eosinophils/100 WBC (Bld) 3.0 % 0-5 [facility] Erythrocyte distribution wid th ratioOrdered By: Nando Wiggins on 07-02-2024 Erythrocyte distribution width (RBC) [Ratio] 17.2 % High 11.6-14.6 [facility] Erythrocyte distribution wid th standard deviationOrdered By: Nando Wiggins on 07-02-2024 Erythrocyte distribution width (RBC) [Ratio] 58.0 fl High 35.1-43.9 [facility] Glomerular filtration rate ( GFR) estimationOrdered By: Fernando Oliveros on 07-02-2024 GFR/1.73 sq M.predicted among non-blacks MDRD (S/P/Bld) [Vol rate/Area] 13 mL/min/{1.73_m2} Low >60 [facility] Glomerular filtration rate ( GFR) estimationOrdered By: Nando Wiggins on 07-02-2024 GFR/1.73 sq M.predicted among non-blacks MDRD (S/P/Bld) [Vol rate/Area] 8 mL/min/{1.73_m2} Low >60 [facility] Glucose measurementOrdered B y: Fernando Oliveros on 07-02-2024 Glucose [Mass/Vol] 134 mg/dL High 74-106 [facility] Glucose measurementOrdered B y: Nando Wiggins on 07-02-2024 Glucose [Mass/Vol] 134 mg/dL High 74-106 [facility] By: Fernando Oliveros on 07-02-2024 Glucose [Mass/Vol] 230 mg/dL High 74-106 [facility] H AND P Exam - Hospitaliston 07-02-2024 H&P Exam - Hospitalist Normal [facility] Hematocrit Auto (Bld) [Volum e fraction]Ordered By: Nando Wiggins on 07-02-2024 Hematocrit (Bld) [Volume fraction] 25.7 % Low 40-54 [facility] Hemoglobin measurementOrdere d By: Nando Wiggins on 07-02-2024 Hemoglobin (Bld) [Mass/Vol] 8.0 g/dL Low 13.0-16.5 [facility] Immature granulocytes/100 WB C Auto (Bld)Ordered By: Nando Wiggins on 07-02-2024 Immature granulocytes/100 WBC (Bld) 0.500 % 0.0-0.9 [facility] MCV (mean corpuscular volume ) determinationOrdered By: Nando Wiggins on 07-02-2024 MCV (RBC) [Entitic vol] 96.3 fL High 80-94 [facility] Mean corpuscular hemoglobin (MCH) determinationOrdered By: Nando Wiggins on 07-02-2024 MCH (RBC) [Entitic mass] 30.0 pg 27.0-32.0 [facility] Monocyte percentageOrdered B y: Nando Wiggins on 07-02-2024 Monocytes/100 WBC (Bld) 11.7 % High 0-10 [facility] Neutrophil percentageOrdered By: Nando Wiggins on 07-02-2024 Neutrophils/100 WBC (Bld) 64.2 % 47-70 [facility] Platelet countOrdered By: Kathie Wiggins on 07-02-2024 Platelets (Bld) [#/Vol] 198 10*3/uL 150-450 [facility] Potassium measurementOrdered By: Fernando Oliveros on 07-02-2024 Potassium [Moles/Vol] 4.3 mmol/L 3.5-5.1 [facility] Potassium measurementOrdered By: Nando Wiggins on 07-02-2024 Potassium [Moles/Vol] 5.9 mmol/L High 3.5-5.1 [facility] RBC Auto (Bld) [#/Vol]Ordere d By: Nando Wiggins on 07-02-2024 RBC (Bld) [#/Vol] 2.67 10*6/uL Low 4.6-6.2 [facility] Serum or plasma calcium lilli urement (mass/volume)Ordered By: Fernando Oliveros on 07-02-2024 Calcium [Mass/Vol] 9.1 mg/dL 8.5-10.1 [facility] Serum or plasma calcium lilli urement (mass/volume)Ordered By: Nando Wiggins on 07-02-2024 Calcium [Mass/Vol] 8.1 mg/dL Low 8.5-10.1 [facility] Serum or plasma creatinine m easurement (mass/volume)Ordered By: Fernando Oliveros on 07-02-2024 Creatinine [Mass/Vol] 4.63 mg/dL High 0.70-1.30 [facility] Serum or plasma creatinine m easurement (mass/volume)Ordered By: Nando Wiggins on 07-02-2024 Creatinine [Mass/Vol] 7.24 mg/dL High 0.70-1.30 [facility] Serum or plasma urea nitroge n measurement (mass/volume)Ordered By: Fernando Oliveros on 07-02-2024 Urea nitrogen [Mass/Vol] 84 mg/dL High 7-18 [facility] Serum or plasma urea nitroge n measurement (mass/volume)Ordered By: Nando Wiggins on 07-02-2024 Urea nitrogen [Mass/Vol] 126 mg/dL High 7-18 [facility] Sodium levelOrdered By: Fernando Oliveros on 07-02-2024 Sodium [Moles/Vol] 133 mmol/L Low 136-145 [facility] Sodium levelOrdered By: Deb Wiggins on 07-02-2024 Sodium [Moles/Vol] 130 mmol/L Low 136-145 [facility] White blood cell (WBC) count Ordered By: Nando Wiggins on 07-02-2024 WBC (Bld) [#/Vol] 9.3 10*3/uL 4.4-11.0 [facility] Absolute lymphocyte countOrd ered By: Nando Wiggins on 06-25-2024 Lymphocytes Auto (Unsp spec) [#/Vol] 2.51 10*3/uL 0.83-4.51 [facility] Automated lymphocyte count a s percentage of total leukocytesOrdered By: Nando Wiggins on 06-25-2024 Lymphocytes/100 WBC Auto (Unsp spec) 29.7 % 19-41 [facility] Basophil percentageOrdered B y: Nando Wiggins on 06-25-2024 Basophils/100 WBC (Bld) 0.6 % 0-1 [facility] Carbon dioxide measurementOr dered By: Nando Wiggins on 06-25-2024 CO2 [Moles/Vol] 27.0 mmol/L 21.0-32.0 [facility] Chloride measurementOrdered By: Nando Wiggins on 06-25-2024 Chloride [Moles/Vol] 96 mmol/L Low 98-107 [facility] Eosinophil percentageOrdered By: Nando Wiggins on 06-25-2024 Eosinophils/100 WBC (Bld) 3.5 % 0-5 [facility] Erythrocyte distribution wid th ratioOrdered By: [facility] Wigg[facility] on 06-25-2024 Erythrocyte distribution width (RBC) [Ratio] 15.1 % High 11.6-14.6 [facility] Erythrocyte distribution wid th standard deviationOrdered By: Debissuewolf Wiggins on 06-25-2024 Erythrocyte distribution width (RBC) [Ratio] 52.1 fl High 35.1-43.9 [facility] Glomerular filtration rate ( GFR) estimationOrdered By: Nando Wiggins on 06-25-2024 GFR/1.73 sq M.predicted among non-blacks MDRD (S/P/Bld) [Vol rate/Area] 11 mL/min/{1.73_m2} Low >60 [facility] Glucose measurementOrdered B y: Nando Wiggins on 06-25-2024 Glucose [Mass/Vol] 136 mg/dL High 74-106 [facility] Hematocrit Auto (Bld) [Volum e fraction]Ordered By: Nando Wiggins on 06-25-2024 Hematocrit (Bld) [Volume fraction] 27.3 % Low 40-54 [facility] Hemoglobin measurementOrdere d By: Debsrinathwolf Edenlakshminereida on 06-25-2024 Hemoglobin (Bld) [Mass/Vol] 8.0 g/dL Low 13.0-16.5 [facility] Immature granulocytes/100 WB C Auto (Bld)Ordered By: Nando Wiggins on 06-25-2024 Immature granulocytes/100 WBC (Bld) 1.500 % High 0.0-0.9 [facility] MCV (mean corpuscular volume ) determinationOrdered By: Nando Wiggins on 06-25-2024 MCV (RBC) [Entitic vol] 95.5 fL High 80-94 [facility] Mean corpuscular hemoglobin (MCH) determinationOrdered By: Nando Wiggins on 06-25-2024 MCH (RBC) [Entitic mass] 28.0 pg 27.0-32.0 [facility] Monocyte percentageOrdered B y: Nando Wiggins on 06-25-2024 Monocytes/100 WBC (Bld) 8.3 % 0-10 [facility] Neutrophil percentageOrdered By: Nando Wiggins on 06-25-2024 Neutrophils/100 WBC (Bld) 56.4 % 47-70 [facility] Platelet countOrdered By: Kathie biancalilian Wiggins on 06-25-2024 Platelets (Bld) [#/Vol] 210 10*3/uL 150-450 [facility] Potassium measurementOrdered By: Nando Wiggins on 06-25-2024 Potassium [Moles/Vol] 4.2 mmol/L 3.5-5.1 [facility] RBC Auto (Bld) [#/Vol]Ordere d By: Debsrinathwolf Edenlakshminereida on 06-25-2024 RBC (Bld) [#/Vol] 2.86 10*6/uL Low 4.6-6.2 [facility] Serum or plasma calcium lilli urement (mass/volume)Ordered By: Nando Wiggins on 06-25-2024 Calcium [Mass/Vol] 9.0 mg/dL 8.5-10.1 [facility] Serum or plasma creatinine m easurement (mass/volume)Ordered By: Nando Wiggins on 06-25-2024 Creatinine [Mass/Vol] 5.23 mg/dL High 0.70-1.30 [facility] Serum or plasma urea nitroge n measurement (mass/volume)Ordered By: Nnado Wiggins on 06-25-2024 Urea nitrogen [Mass/Vol] 72 mg/dL High 7-18 [facility] Sodium levelOrdered By: Deb Wiggins on 06-25-2024 Sodium [Moles/Vol] 134 mmol/L Low 136-145 [facility] White blood cell (WBC) count Ordered By: Nando Wiggins on 06-25-2024 WBC (Bld) [#/Vol] 8.5 10*3/uL 4.4-11.0 [facility] MR/BMS.BVSon 06-20-2024 MR/BMS.BVS Normal [facility] Absolute lymphocyte countOrd ered By: Nando Wiggins on 06-18-2024 Lymphocytes Auto (Unsp spec) [#/Vol] 2.74 10*3/uL 0.83-4.51 [facility] Automated lymphocyte count a s percentage of total leukocytesOrdered By: Nando Wiggins on 06-18-2024 Lymphocytes/100 WBC Auto (Unsp spec) 31.0 % 19-41 [facility] Basophil percentageOrdered B y: Nando Wiggins on 06-18-2024 Basophils/100 WBC (Bld) 0.6 % 0-1 [facility] Carbon dioxide measurementOr dered By: Nando Wiggins on 06-18-2024 CO2 [Moles/Vol] 32.0 mmol/L 21.0-32.0 [facility] Chloride measurementOrdered By: Nando Wiggins on 06-18-2024 Chloride [Moles/Vol] 95 mmol/L Low 98-107 [facility] Eosinophil percentageOrdered By: Nando Wiggins on 06-18-2024 Eosinophils/100 WBC (Bld) 3.1 % 0-5 [facility] Erythrocyte distribution wid th ratioOrdered By: Nando Wiggins on 06-18-2024 Erythrocyte distribution width (RBC) [Ratio] 14.6 % 11.6-14.6 [facility] Erythrocyte distribution wid th standard deviationOrdered By: Kathiebiancasrinathwolf Edenlakshminereida on 06-18-2024 Erythrocyte distribution width (RBC) [Ratio] 50.6 fl High 35.1-43.9 [facility] Glomerular filtration rate ( GFR) estimationOrdered By: Nando Wiggins on 06-18-2024 GFR/1.73 sq M.predicted among non-blacks MDRD (S/P/Bld) [Vol rate/Area] 12 mL/min/{1.73_m2} Low >60 [facility] Glucose measurementOrdered B y: Debsrinathwolf Edenlakshminereida on 06-18-2024 Glucose [Mass/Vol] 81 mg/dL 74-106 [facility] Hematocrit Auto (Bld) [Volum e fraction]Ordered By: Nando Wiggins on 06-18-2024 Hematocrit (Bld) [Volume fraction] 28.6 % Low 40-54 [facility] Hemoglobin measurementOrdere d By: Nando Edenlakshminereida on 06-18-2024 Hemoglobin (Bld) [Mass/Vol] 8.4 g/dL Low 13.0-16.5 [facility] Immature granulocytes/100 WB C Auto (Bld)Ordered By: Nando Wiggins on 06-18-2024 Immature granulocytes/100 WBC (Bld) 0.300 % 0.0-0.9 [facility] MCV (mean corpuscular volume ) determinationOrdered By: Nando Wiggins on 06-18-2024 MCV (RBC) [Entitic vol] 95.0 fL High 80-94 [facility] Mean corpuscular hemoglobin (MCH) determinationOrdered By: Nando Wiggins on 06-18-2024 MCH (RBC) [Entitic mass] 27.9 pg 27.0-32.0 [facility] Monocyte percentageOrdered B y: Nando Wiggins on 06-18-2024 Monocytes/100 WBC (Bld) 8.3 % 0-10 [facility] Neutrophil percentageOrdered By: Nando Wiggins on 06-18-2024 Neutrophils/100 WBC (Bld) 56.7 % 47-70 [facility] Platelet countOrdered By: Kathie Wiggins on 06-18-2024 Platelets (Bld) [#/Vol] 301 10*3/uL 150-450 [facility] Potassium measurementOrdered By: Nando Wiggins on 06-18-2024 Potassium [Moles/Vol] 4.7 mmol/L 3.5-5.1 [facility] RBC Auto (Bld) [#/Vol]Ordere d By: Nando Wiggins on 06-18-2024 RBC (Bld) [#/Vol] 3.01 10*6/uL Low 4.6-6.2 [facility] Serum or plasma calcium lilli urement (mass/volume)Ordered By: Nando Wiggins on 06-18-2024 Calcium [Mass/Vol] 9.5 mg/dL 8.5-10.1 [facility] Serum or plasma creatinine m easurement (mass/volume)Ordered By: Nando Wiggins on 06-18-2024 Creatinine [Mass/Vol] 5.06 mg/dL High 0.70-1.30 [facility] Serum or plasma urea nitroge n measurement (mass/volume)Ordered By: Nando Wiggins on 06-18-2024 Urea nitrogen [Mass/Vol] 69 mg/dL High 7-18 [facility] Sodium levelOrdered By: Deb rosetirsonereida Wiggins on 06-18-2024 Sodium [Moles/Vol] 134 mmol/L Low 136-145 [facility] White blood cell (WBC) count Ordered By: Nando Wiggins on 06-18-2024 WBC (Bld) [#/Vol] 8.8 10*3/uL 4.4-11.0 [facility] Absolute lymphocyte countOrd ered By: Nando Wiggins on 06-11-2024 Lymphocytes Auto (Unsp spec) [#/Vol] 2.00 10*3/uL 0.83-4.51 [facility] Automated lymphocyte count a s percentage of total leukocytesOrdered By: Nando Wiggins on 06-11-2024 Lymphocytes/100 WBC Auto (Unsp spec) 25.4 % 19-41 [facility] Basophil percentageOrdered B y: Debsrinathwolf Edencheko on 06-11-2024 Basophils/100 WBC (Bld) 0.6 % 0-1 [facility] Carbon dioxide measurementOr dered By: Nando Wiggins on 06-11-2024 CO2 [Moles/Vol] 30.0 mmol/L 21.0-32.0 [facility] Chloride measurementOrdered By: Nando Wiggins on 06-11-2024 Chloride [Moles/Vol] 94 mmol/L Low 98-107 [facility] Culture, Anaerobic Any Sourc reed 06-11-2024 CUAN Right Forefoot No growth in 5 days. Normal [facility] Comment on above: Performed By: #### M 600.2200, M300.2000, M100.4001, M300.3000, M100.2000, M100.3000, M600.2000 ####[facility] [address] [place], [address] Eosinophil percentageOrdered By: Nando Wiggins on 06-11-2024 Eosinophils/100 WBC (Bld) 2.7 % 0-5 [facility] Erythrocyte distribution wid th ratioOrdered By: Nando Wiggins on 06-11-2024 Erythrocyte distribution width (RBC) [Ratio] 14.6 % 11.6-14.6 [facility] Erythrocyte distribution wid th standard deviationOrdered By: Nando Wiggins on 06-11-2024 Erythrocyte distribution width (RBC) [Ratio] 50.4 fl High 35.1-43.9 [facility] Glomerular filtration rate ( GFR) estimationOrdered By: Nando Wiggins on 06-11-2024 GFR/1.73 sq M.predicted among non-blacks MDRD (S/P/Bld) [Vol rate/Area] 10 mL/min/{1.73_m2} Low >60 [facility] Glucose measurementOrdered B y: Nando Wiggins on 06-11-2024 Glucose [Mass/Vol] 222 mg/dL High 74-106 [facility] Hematocrit Auto (Bld) [Volum e fraction]Ordered By: Nando Wiggins on 06-11-2024 Hematocrit (Bld) [Volume fraction] 27.0 % Low 40-54 [facility] Hemoglobin measurementOrdere d By: Nando Wiggins on 06-11-2024 Hemoglobin (Bld) [Mass/Vol] 8.1 g/dL Low 13.0-16.5 [facility] Immature granulocytes/100 WB C Auto (Bld)Ordered By: Nando Wiggins on 06-11-2024 Immature granulocytes/100 WBC (Bld) 0.500 % 0.0-0.9 [facility] MCV (mean corpuscular volume ) determinationOrdered By: Nando Wiggins on 06-11-2024 MCV (RBC) [Entitic vol] 94.7 fL High 80-94 [facility] Mean corpuscular hemoglobin (MCH) determinationOrdered By: Nando Wiggins on 06-11-2024 MCH (RBC) [Entitic mass] 28.4 pg 27.0-32.0 [facility] Monocyte percentageOrdered B y: Nando Wiggins on 06-11-2024 Monocytes/100 WBC (Bld) 9.7 % 0-10 [facility] Neutrophil percentageOrdered By: Nando Wiggins on 06-11-2024 Neutrophils/100 WBC (Bld) 61.1 % 47-70 [facility] Platelet countOrdered By: Kathie Wiggins on 06-11-2024 Platelets (Bld) [#/Vol] 295 10*3/uL 150-450 [facility] Potassium measurementOrdered By: Nando Wiggins on 06-11-2024 Potassium [Moles/Vol] 5.1 mmol/L 3.5-5.1 [facility] RBC Auto (Bld) [#/Vol]Ordere d By: Nando Wiggins on 06-11-2024 RBC (Bld) [#/Vol] 2.85 10*6/uL Low 4.6-6.2 [facility] Serum or plasma calcium lilli urement (mass/volume)Ordered By: Nando Wiggins on 06-11-2024 Calcium [Mass/Vol] 9.1 mg/dL 8.5-10.1 [facility] Serum or plasma creatinine m easurement (mass/volume)Ordered By: Nando Wiggins on 06-11-2024 Creatinine [Mass/Vol] 5.75 mg/dL High 0.70-1.30 [facility] Serum or plasma urea nitroge n measurement (mass/volume)Ordered By: Nando Wiggins on 06-11-2024 Urea nitrogen [Mass/Vol] 69 mg/dL High 7-18 [facility] Sodium levelOrdered By: Deb Wiggins on 06-11-2024 Sodium [Moles/Vol] 131 mmol/L Low 136-145 [facility] White blood cell (WBC) count Ordered By: Nando Wiggins on 06-11-2024 WBC (Bld) [#/Vol] 7.9 10*3/uL 4.4-11.0 [facility] Bilirubin directOrdered By: Nando Wiggins on 06-08-2024 Bilirubin.direct [Mass/Vol] 0.14 mg/dL 0.00-0.30 [facility] Bilirubin, totalOrdered By: Nando Wiggins on 06-08-2024 Bilirubin [Mass/Vol] 0.40 mg/dL 0.20-1.00 [facility] Hemoglobin A1c percentageOrd ered By: Nando Wiggins on 06-08-2024 HbA1c (Bld) [Mass fraction] 7.7 % High 3.8-5.6 [facility] No Panel InformationOrdered By: Nando Wiggins on 06-08-2024 14 U/L Low 15-37 [facility] Serum globulin measurementOr dered By: Nando Wiggins on 06-08-2024 Globulin (S) [Mass/Vol] 4.4 g/dL High 2.2-4.2 [facility] Serum or plasma alanine hawkins otransferase (ALT) measurementOrdered By: Nando Wiggins on 06-08-2024 ALT [Catalytic activity/Vol] 7 U/L Low 16-61 [facility] Serum or plasma albumin lilli urement (mass/volume)Ordered By: Nando Wiggins on 06-08-2024 Albumin [Mass/Vol] 2.2 g/dL Low 3.2-5.0 [facility] Serum or plasma alkaline penelope sphatase measurementOrdered By: Nando Wiggins on 06-08-2024 ALP [Catalytic activity/Vol] 56 U/L 45-117 [facility] Total proteinOrdered By: Sinan Wiggins on 06-08-2024 Protein [Mass/Vol] 6.6 g/dL 6.4-8.2 [facility] Wound Cultureon 06-08-2024 WC Right Forefoot No growth aerobically. Normal [facility] Comment on above: Performed By: #### M 600.2200, M300.2000, M100.4001, M300.3000, M100.2000, M100.3000, M600.2000 ####[facility] [address] [place], [place], [id number] Acid fast bacillus (AFB) cul tureOrdered By: Des Ruelas on 06-06-2024 Mycobacterium sp identified Org specific cx Nom (Unsp spec) [facility] Anaerobic cultureOrdered By: Des Ruelas on 06-06-2024 Bacteria identified Anaer cx Nom (Unsp spec) No growth in 5 days. [facility] Bedside Glucoseon 06-06-2024 FINGERSTICK GLU 102 mg/dL Normal 74-106 [facility] Comment on above: Result Comment: FANG ROLANDOENT OF PATIENT CARE PER NURSING PROTOCOL Performed By: #### L 501.080 ####[facility] [address] [place], [address] Bilirubin directOrdered By: Nando Wiggins on 06-06-2024 Bilirubin.direct [Mass/Vol] 0.12 mg/dL 0.00-0.30 [facility] Bilirubin, totalOrdered By: Nando Wiggins on 06-06-2024 Bilirubin [Mass/Vol] 0.30 mg/dL 0.20-1.00 [facility] Decalcification bone/plaqueo n 06-06-2024 Decalcification bone/plaque Normal [facility] Comment on above: Performed By: #### P DEC ####[facility] [address] [place], [place], [address] Foot min 3 Viewson 5 Foot min 3 Views Normal [facility] Fungus cultureOrdered By: Kana Ruelas on 06-06-2024 Fungus identified Cx Nom (Unsp spec) [facility] Fungus stainOrdered By: Juve Ruelas on 06-06-2024 Fungus identified Fungus stain Nom (Unsp spec) [facility] Gl[facility] deOrdered By: Des Ruelas on 06-06-2024 Glucose [Mass/Vol] 102 mg/dL 74-106 [facility] Gram Stainon 06-06-2024 GS Right Forefoot Gram Stain 4+ Red Blood Cells 1+ White Blood Cells No organisms seen Normal [facility] Comment on above: Performed By: #### M 600.2200, M300.2000, M100.4001, M300.3000, M100.2000, M100.3000, M600.2000 ####[facility] [address] [place], [address] Gram stainOrdered By: Des Ruelas on 06-06-2024 Microscopic observation Gram stain Nom (Unsp spec) [facility] Hemoglobin A1c percentageOrd ered By: Nando Wiggins on 06-06-2024 HbA1c (Bld) [Mass fraction] 8.0 % High 3.8-5.6 [facility] MR/POSTOP.ANEon 06-06-2024 MR/POSTOP.ANE Normal [facility] MR/NBOHEETB0jj 06-06-2024 MR/POSTOPAN2 Normal [facility] No Panel InformationOrdered By: Nando Wiggins on 06-06-2024 13 U/L Low 15-37 [facility] Operative Reporton 5 Operative Report Normal [facility] Serum globulin measurementOr dered By: Nando Wiggins on 06-06-2024 Globulin (S) [Mass/Vol] 5.1 g/dL High 2.2-4.2 [facility] Serum or plasma alanine hawkins otransferase (ALT) measurementOrdered By: Nando Wiggins on 06-06-2024 ALT [Catalytic activity/Vol] 18 U/L 16-61 [facility] Serum or plasma albumin lilli urement (mass/volume)Ordered By: Nando Wiggins on 06-06-2024 Albumin [Mass/Vol] 2.4 g/dL Low 3.2-5.0 [facility] Serum or plasma alkaline penelope sphatase measurementOrdered By: [facility] Hospital[facility] W[facility] on 06-06-2024 ALP [Catalytic activity/Vol] 68 U/L 45-117 [facility] Total proteinOrdered By: Sinan schmidt Meekcheko on 06-06-2024 Protein [Mass/Vol] 7.5 g/dL 6.4-8.2 [facility] Wound Cultureon 06-05-2024 [facility] Comment on above: Performed By: #### M 100.2000, M100.3000, M100.4001 ####[facility] [address] [place], [place], [address] MR/ANEmilton 06-04-2024 /[facility] CNPNon 05-30-2024 [facility] PERLA THOMPS[facility] ([id number]) 1935 M Date Time Provider Department 05/30/24 [facility] During your visit today, we recorded the following information about you: Catalina Ruth, RN 05/30/2024 10:41 AM Signed Jey Pts son in law called in and reports Pt is now in a [facility] facility. He states [facility] big toe and the ball of his foot in April at the ER. He states they want to remove the rest of the toes as soon as they can, but they don't want to have to do it in the ER. He states that surgical clinical reviewer for this provider is going to be sending over a surgical release for for the providers office to sign. Pt was last seen by Lauren Podlogar SMELTER LINER on 03/28/24, he had an A1C and CMP done. I don't know if Pt would been to come in and be seen again before forms could be signed. Forms are going to be sent to office Attn: Alanna and Deborah. Please call and advise if anything else will need to be done. Alanna Veloz LPN 05/30/2024 11:02 AM Signed Phoned patients sonJey back to advise if patient is at [facility] and on a skilled unit under Dr Wiggins's care we recommend she fill the clearance form out. Jey explained that Dr Wiggins rounds on Tuesdays when patient is at the wound clinic for his weekly debridments. Explained to son that we typically need to obtain labs and EKG and patient would need to be seen in office. He stated patient has a home care aide and wondered if they sign off if Dr Yan could order appropriate labs and if ok then sign off on surgical clearance? They are struggling to keep patient in skilled care due to Andrea reports as it shows patient isnt getting enough hours but patient is out frequently due to dialysis 3 days per week in additions to wound clinic and other procedures. They are trying to avaoid using the ER for amputation but hand riveter has advised that would be easier than getting the clearance. Please advise. NIKIA Brito Christopher B, MD 05/30/2024 11:13 AM Signed If he is a resident at the skilled nursing, it would be most convenient for the patient to have Dr. Wiggins do his pre op there. If they are unable or unwilling, he would need OV with us before I could clear him. Deborah Bedoya LPN 05/30/2024 1:57 PM Signed Telephone call placed to patients son in law Jey. Made aware patient would need to be seen in office or could utilize nursing homes Dr. Voices understanding. NIKIA Seay Michelle, LPN 05/30/2024 5:55 PM Signed Son in law calling in to advise office that Cardiology Dr. Yunior Tong from the [facility] has signed off on medical clearance and will be faxing forms to Dr. Cat office for review for clearance(He also faxed these to the [facility] clinic). Son in law Jey made aware that POA paperwork is still not in the computer and needs to be brought in to discuss patients medical. Jey will drop off tomorrow. Paperwork received, placed on PCP desk for review. Jey requesting call back tomorrow from Alanna after PCP reviews paperwork. NIKIA Seay Heather, LPN 05/31/2024 11:41 AM Signed Son dropped off copies of POA and Living Will forms at this time. NIKIA Gomez Christopher B, MD 05/31/2024 12:44 PM Signed He will still need physical exam and possibly labs before I would be able to clear him. If he is in the skilled nursing with Dr. Wiggins, they should have access to his labs and might be easier for them to see and clear him. If unable or unwilling, I would need to see him in our office. Alanna Veloz LPN 05/31/2024 2:33 PM Signed Phoned son-in-law, Jey, and explained to him we will still need patient to call in and give permission to speak to he or patient's daughter unless patient is deemed legally or medically unable to make decisions for himself in regards to medical info/access records. Also advised of PCP's message below he voiced understanding. He stated he will have patient and patient's daughter daughter call in and give triage nurse the ok/information. NIKIA Brito Amanda, ISABEL 06/05/2024 3:26 PM Signed Closing encounter as Pt and family have not called back in. If they do we can open a new TE. Allergies As of Date: 05/30/2024 Noted Allergy Reaction ACTOS (PIOGLITAZONE HCL) 10/04/2016 14 - Other: See Comments Comments: fatigue ATENOLOL 05/18/2010 8 - GI Upset Comments: 100 mg causes nausea JANUVIA (SITAGLIPTIN) 09/18/2013 14 - Other: See Comments Comments: Januvia 100mg dizziness, can tolerate 50mg OZEMPIC (SEMAGLUTIDE) 01/06/2024 8 - GI Upset Comments: Diarrhea ZOCOR (SIMVASTATIN) 01/02/2007 Comments: myalgias Date Reviewed: 04/14/2024 Reviewed by: Jordana Kramer MA - Fully Assessed Reason for Visit: Patient Update [1234] Fill out Surgical R (more content not included)... Normal [facility] Wound Ctr History AND Physic ariella 05-29-2024 Wound Ctr History & Physical Normal [facility] Operative Reporton Operative Report Normal [facility] Wound Ctr History AND Physic ariella 05-17-2024 Wound Ctr History & Physical Normal [facility] Basic Metabolic Profile (BMP )on 05-14-2024 BUN Normal 7-18 [facility] Comment on above: Result Comment: Canc elled via OM: Order cancelled - Patient discharged Performed By: #### L 500.2500 ####[facility] [address] [place], [address] Result Comment: Canc elled via OM: MD Ordered Performed By: #### L 100.0500, L500.2500 ####[facility] [address] [place], [address] BUN/CRE Normal 10-20 [facility] Comment on above: Result Comment: Canc elled via OM: Order cancelled - Patient discharged Performed By: #### L 500.2500 ####[facility] [address] [place], [address] Result Comment: Canc elled via OM: MD Ordered Performed By: #### L 100.0500, L500.2500 ####[facility] [address] [place], [address] CA,Total Normal 8.5-10.1 [facility] Comment on above: Result Comment: Canc elled via OM: Order cancelled - Patient discharged Performed By: #### L 500.2500 ####[facility] [address] [place], [address] Result Comment: Canc elled via OM: MD Ordered Performed By: #### L 100.0500, L500.2500 ####[facility] [address] [place], [address] CL Normal 98-107 [facility] Comment on above: Result Comment: Canc elled via OM: Order cancelled - Patient discharged Performed By: #### L 500.2500 ####[facility] [address] [place], [address] Result Comment: Canc elled via OM: MD Ordered Performed By: #### L 100.0500, L500.2500 ####[facility] [address] [place], [address] CO2 Normal 21.0-32.0 [facility] Comment on above: Result Comment: Canc elled via OM: Order cancelled - Patient discharged Performed By: #### L 500.2500 ####[facility] [address] [place], [address] Result Comment: Canc elled via OM: MD Ordered Performed By: #### L 100.0500, L500.2500 ####[facility] [address] [place], [address] CREAT,SERUM Normal 0.70-1.30 [facility] Comment on above: Result Comment: Canc elled via OM: Order cancelled - Patient discharged Performed By: #### L 500.2500 ####[facility] [address] [place], [address] Result Comment: Canc elled via OM: MD Ordered Performed By: #### L 100.0500, L500.2500 ####[facility] [address] [place], [address] EST GFR Normal >60 [facility] Comment on above: Result Comment: Canc elled via OM: Order cancelled - Patient discharged Performed By: #### L 500.2500 ####[facility] [address] [place], [address] Result Comment: Canc elled via OM: MD Ordered Performed By: #### L 100.0500, L500.2500 ####[facility] [address] [place], [address] EST GFR - AA Normal >60 [facility] Comment on above: Result Comment: Canc elled via OM: Order cancelled - Patient discharged Performed By: #### L 500.2500 ####[facility] [address] [place], [address] Result Comment: Canc elled via OM: MD Ordered Performed By: #### L 100.0500, L500.2500 ####[facility] [address] [place], [address] GAP Normal 5-15 [facility] Comment on above: Result Comment: Canc elled via OM: Order cancelled - Patient discharged Performed By: #### L 500.2500 ####[facility] [address] [place], [address] Result Comment: Canc elled via OM: MD Ordered Performed By: #### L 100.0500, L500.2500 ####[facility] [address] [place], [address] GLU Normal 74-106 [facility] Comment on above: Result Comment: Canc elled via OM: Order cancelled - Patient discharged Performed By: #### L 500.2500 ####[facility] [address] [place], [address] Result Comment: Canc elled via OM: MD Ordered Performed By: #### L 100.0500, L500.2500 ####[facility] [address] [place], [address] Potassium Normal 3.5-5.1 [facility] Comment on above: Result Comment: Canc elled via OM: Order cancelled - Patient discharged Performed By: #### L 500.2500 ####[facility] [address] [place], [address] Result Comment: Canc elled via OM: MD Ordered Performed By: #### L 100.0500, L500.2500 ####[facility] [address] [place], [address] Basic Metabolic Profile (BMP) Normal 136-145 [facility] Comment on above: Result Comment: Canc elled via OM: Order cancelled - Patient discharged Performed By: #### L 500.2500 ####[facility] [address] [place], [address] Result Comment: Canc elled via OM: MD Ordered Performed By: #### L 100.0500, L500.2500 ####[facility] [address] [place], [address] CBC-Complete Blood Cnt No Di ffon 05-14-2024 HCT Normal 40-54 [facility] Comment on above: Result Comment: Canc elled via OM: Order cancelled - Patient discharged Performed By: #### L 100.0500 ####[facility] [address] [place], [address] HGB Normal 13.0-16.5 [facility] Comment on above: Result Comment: Canc elled via OM: Order cancelled - Patient discharged Performed By: #### L 100.0500 ####[facility] [address] [place], [address] MCH Normal 27.0-32.0 [facility] Comment on above: Result Comment: Canc elled via OM: Order cancelled - Patient discharged Performed By: #### L 100.0500 ####[facility] [address] [place], [address] MCHC Normal 32-36 [facility] Comment on above: Result Comment: Canc elled via OM: Order cancelled - Patient discharged Performed By: #### L 100.0500 ####[facility] [address] [place], [address] MCV Normal 80-94 [facility] Comment on above: Result Comment: Canc elled via OM: Order cancelled - Patient discharged Performed By: #### L 100.0500 ####[facility] [address] [place], [address] PLT Normal 150-450 [facility] Comment on above: Result Comment: Canc elled via OM: Order cancelled - Patient discharged Performed By: #### L 100.0500 ####[facility] [address] [place], [address] RBC Normal 4.6-6.2 [facility] Comment on above: Result Comment: Canc elled via OM: Order cancelled - Patient discharged Performed By: #### L 100.0500 ####[facility] [address] [place], [address] RDW CV Normal 11.6-14.6 [facility] Comment on above: Result Comment: Canc elled via OM: Order cancelled - Patient discharged Performed By: #### L 100.0500 ####[facility] [address] [place], [address] RDW SD Normal 35.1-43.9 [facility] Comment on above: Result Comment: Canc elled via OM: Order cancelled - Patient discharged Performed By: #### L 100.0500 ####[facility] [address] [place], [address] WBC Normal 4.4-11.0 [facility] Comment on above: Result Comment: Canc elled via OM: Order cancelled - Patient discharged Performed By: #### L 100.0500 ####[facility] [address] [place], [address] HCT Normal 40-54 [facility] Comment on above: Result Comment: Canc elled via OM: MD Ordered Performed By: #### L 100.0500, L500.2500 ####[facility] [address] [place], [address] HGB Normal 13.0-16.5 [facility] Comment on above: Result Comment: Canc elled via OM: MD Ordered Performed By: #### L 100.0500, L500.2500 ####[facility] [address] [place], [address] MCH Normal 27.0-32.0 [facility] Comment on above: Result Comment: Canc elled via OM: MD Ordered Performed By: #### L 100.0500, L500.2500 ####[facility] [address] [place], [address] MCHC Normal 32-36 [facility] Comment on above: Result Comment: Canc elled via OM: MD Ordered Performed By: #### L 100.0500, L500.2500 ####[facility] [address] [place], [address] MCV Normal 80-94 [facility] Comment on above: Result Comment: Canc elled via OM: MD Ordered Performed By: #### L 100.0500, L500.2500 ####[facility] [address] [place], [address] PLT Normal 150-450 [facility] Comment on above: Result Comment: Canc elled via OM: MD Ordered Performed By: #### L 100.0500, L500.2500 ####[facility] [address] [place], [address] RBC Normal 4.6-6.2 [facility] Comment on above: Result Comment: Canc elled via OM: MD Ordered Performed By: #### L 100.0500, L500.2500 ####[facility] [address] [place], [address] RDW CV Normal 11.6-14.6 [facility] Comment on above: Result Comment: Canc elled via OM: MD Ordered Performed By: #### L 100.0500, L500.2500 ####[facility] [address] [place], [address] RDW SD Normal 35.1-43.9 [facility] Comment on above: Result Comment: Canc elled via OM: MD Ordered Performed By: #### L 100.0500, L500.2500 ####[facility] [address] [place], [address] WBC Normal 4.4-11.0 [facility] Comment on above: Result Comment: Canc elled via OM: MD Ordered Performed By: #### L 100.0500, L500.2500 ####[facility] [address] [place], [address] Basic Metabolic Profile (BMP )on 05-13-2024 BUN Normal 7-18 [facility] Comment on above: Result Comment: Canc elled via OM: MD Ordered Performed By: #### L 500.2500, L100.0500 ####[facility] [address] [place], [address] BUN/CRE Normal 10-20 [facility] Comment on above: Result Comment: Canc elled via OM: MD Ordered Performed By: #### L 500.2500, L100.0500 ####[facility] [address] [place], [address] CA,Total Normal 8.5-10.1 [facility] Comment on above: Result Comment: Canc elled via OM: MD Ordered Performed By: #### L 500.2500, L100.0500 ####[facility] [address] [place], [address] CL Normal 98-107 [facility] Comment on above: Result Comment: Canc elled via OM: MD Ordered Performed By: #### L 500.2500, L100.0500 ####[facility] [address] [place], [address] CO2 Normal 21.0-32.0 [facility] Comment on above: Result Comment: Canc elled via OM: MD Ordered Performed By: #### L 500.2500, L100.0500 ####[facility] [address] [place], [address] CREAT,SERUM Normal 0.70-1.30 [facility] Comment on above: Result Comment: Canc elled via OM: MD Ordered Performed By: #### L 500.2500, L100.0500 ####[facility] [address] [place], [address] EST GFR Normal >60 [facility] Comment on above: Result Comment: Canc elled via OM: MD Ordered Performed By: #### L 500.2500, L100.0500 ####[facility] [address] [place], [address] EST GFR - AA Normal >60 [facility] Comment on above: Result Comment: Canc elled via OM: MD Ordered Performed By: #### L 500.2500, L100.0500 ####[facility] [address] [place], [address] GAP Normal 5-15 [facility] Comment on above: Result Comment: Canc elled via OM: MD Ordered Performed By: #### L 500.2500, L100.0500 ####[facility] [address] [place], [address] GLU Normal 74-106 [facility] Comment on above: Result Comment: Canc elled via OM: MD Ordered Performed By: #### L 500.2500, L100.0500 ####[facility] [address] [place], [address] Potassium Normal 3.5-5.1 [facility] Comment on above: Result Comment: Canc elled via OM: MD Ordered Performed By: #### L 500.2500, L100.0500 ####[facility] [address] [place], [address] Basic Metabolic Profile (BMP) Normal 136-145 [facility] Comment on above: Result Comment: Canc elled via OM: MD Ordered Performed By: #### L 500.2500, L100.0500 ####[facility] [address] [place], [address] CBC-Complete Blood Cnt No Di ffon 05-13-2024 HCT Normal 40-54 [facility] Comment on above: Result Comment: Canc elled via OM: MD Ordered Performed By: #### L 500.2500, L100.0500 ####[facility] [address] [place], [address] HGB Normal 13.0-16.5 [facility] Comment on above: Result Comment: Canc elled via OM: MD Ordered Performed By: #### L 500.2500, L100.0500 ####[facility] [address] [place], [address] MCH Normal 27.0-32.0 [facility] Comment on above: Result Comment: Canc elled via OM: MD Ordered Performed By: #### L 500.2500, L100.0500 ####[facility] [address] [place], [address] MCHC Normal 32-36 [facility] Comment on above: Result Comment: Canc elled via OM: MD Ordered Performed By: #### L 500.2500, L100.0500 ####[facility] [address] [place], [address] MCV Normal 80-94 [facility] Comment on above: Result Comment: Canc elled via OM: MD Ordered Performed By: #### L 500.2500, L100.0500 ####[facility] [address] [place], [address] PLT Normal 150-450 [facility] Comment on above: Result Comment: Canc elled via OM: MD Ordered Performed By: #### L 500.2500, L100.0500 ####[facility] [address] [place], [address] RBC Normal 4.6-6.2 [facility] Comment on above: Result Comment: Canc elled via OM: MD Ordered Performed By: #### L 500.2500, L100.0500 ####[facility] [address] [place], [address] RDW CV Normal 11.6-14.6 [facility] Comment on above: Result Comment: Canc elled via OM: MD Ordered Performed By: #### L 500.2500, L100.0500 ####[facility] [address] [place], [address] RDW SD Normal 35.1-43.9 [facility] Comment on above: Result Comment: Canc elled via OM: MD Ordered Performed By: #### L 500.2500, L100.0500 ####[facility] [address] [place], [address] WBC Normal 4.4-11.0 [facility] Comment on above: Result Comment: Canc elled via OM: MD Ordered Performed By: #### L 500.2500, L100.0500 ####[facility] [address] [place], [address] Basic Metabolic Profile (BMP )on 05-12-2024 BUN Normal 7-18 [facility] Comment on above: Result Comment: Canc elled via OM: MD Ordered Performed By: #### L 500.2500, L100.0500 ####[facility] [address] [place], [address] Result Comment: Canc elled via OM: Order cancelled - Patient discharged Performed By: #### L 500.2500 ####[facility] [address] [place], [address] BUN/CRE Normal 10-20 [facility] Comment on above: Result Comment: Canc elled via OM: MD Ordered Performed By: #### L 500.2500, L100.0500 ####[facility] [address] [place], [address] Result Comment: Canc elled via OM: Order cancelled - Patient discharged Performed By: #### L 500.2500 ####[facility] [address] [place], [address] CA,Total Normal 8.5-10.1 [facility] Comment on above: Result Comment: Canc elled via OM: MD Ordered Performed By: #### L 500.2500, L100.0500 ####[facility] [address] [place], [address] Result Comment: Canc elled via OM: Order cancelled - Patient discharged Performed By: #### L 500.2500 ####[facility] [address] [place], [address] CL Normal 98-107 [facility] Comment on above: Result Comment: Canc elled via OM: MD Ordered Performed By: #### L 500.2500, L100.0500 ####[facility] [address] [place], [address] Result Comment: Canc elled via OM: Order cancelled - Patient discharged Performed By: #### L 500.2500 ####[facility] [address] [place], [address] CO2 Normal 21.0-32.0 [facility] Comment on above: Result Comment: Canc elled via OM: MD Ordered Performed By: #### L 500.2500, L100.0500 ####[facility] [address] [place], [address] Result Comment: Canc elled via OM: Order cancelled - Patient discharged Performed By: #### L 500.2500 ####[facility] [address] [place], [address] CREAT,SERUM Normal 0.70-1.30 [facility] Comment on above: Result Comment: Canc elled via OM: MD Ordered Performed By: #### L 500.2500, L100.0500 ####[facility] [address] [place], [address] Result Comment: Canc elled via OM: Order cancelled - Patient discharged Performed By: #### L 500.2500 ####[facility] [address] [place], [address] EST GFR Normal >60 [facility] Comment on above: Result Comment: Canc elled via OM: MD Ordered Performed By: #### L 500.2500, L100.0500 ####[facility] [address] [place], [address] Result Comment: Canc elled via OM: Order cancelled - Patient discharged Performed By: #### L 500.2500 ####[facility] [address] [place], [address] EST GFR - AA Normal >60 [facility] Comment on above: Result Comment: Canc elled via OM: MD Ordered Performed By: #### L 500.2500, L100.0500 ####[facility] [address] [place], [address] Result Comment: Canc elled via OM: Order cancelled - Patient discharged Performed By: #### L 500.2500 ####[facility] [address] [place], [address] GAP Normal 5-15 [facility] Comment on above: Result Comment: Canc elled via OM: MD Ordered Performed By: #### L 500.2500, L100.0500 ####[facility] [address] [place], [address] Result Comment: Canc elled via OM: Order cancelled - Patient discharged Performed By: #### L 500.2500 ####[facility] [address] [place], [address] GLU Normal 74-106 [facility] Comment on above: Result Comment: Canc elled via OM: MD Ordered Performed By: #### L 500.2500, L100.0500 ####[facility] [address] [place], [address] Result Comment: Canc elled via OM: Order cancelled - Patient discharged Performed By: #### L 500.2500 ####[facility] [address] [place], [address] Potassium Normal 3.5-5.1 [facility] Comment on above: Result Comment: Canc elled via OM: MD Ordered Performed By: #### L 500.2500, L100.0500 ####[facility] [address] [place], [address] Result Comment: Canc elled via OM: Order cancelled - Patient discharged Performed By: #### L 500.2500 ####[facility] [address] [place], [address] Basic Metabolic Profile (BMP) Normal 136-145 [facility] Comment on above: Result Comment: Canc elled via OM: MD Ordered Performed By: #### L 500.2500, L100.0500 ####[facility] [address] [place], [address] Result Comment: Canc elled via OM: Order cancelled - Patient discharged Performed By: #### L 500.2500 ####[facility] [address] [place], [address] CBC-Complete Blood Cnt No Di ffon 05-12-2024 HCT Normal 40-54 [facility] Comment on above: Result Comment: Canc elled via OM: Order cancelled - Patient discharged Performed By: #### L 100.0500 ####[facility] [address] [place], [address] HGB Normal 13.0-16.5 [facility] Comment on above: Result Comment: Canc elled via OM: Order cancelled - Patient discharged Performed By: #### L 100.0500 ####[facility] [address] [place], [address] MCH Normal 27.0-32.0 [facility] Comment on above: Result Comment: Canc elled via OM: Order cancelled - Patient discharged Performed By: #### L 100.0500 ####[facility] [address] [place], [address] MCHC Normal 32-36 [facility] Comment on above: Result Comment: Canc elled via OM: Order cancelled - Patient discharged Performed By: #### L 100.0500 ####[facility] [address] [place], [address] MCV Normal 80-94 [facility] Comment on above: Result Comment: Canc elled via OM: Order cancelled - Patient discharged Performed By: #### L 100.0500 ####[facility] [address] [place], [address] PLT Normal 150-450 [facility] Comment on above: Result Comment: Canc elled via OM: Order cancelled - Patient discharged Performed By: #### L 100.0500 ####[facility] [address] [place], [address] RBC Normal 4.6-6.2 [facility] Comment on above: Result Comment: Canc elled via OM: Order cancelled - Patient discharged Performed By: #### L 100.0500 ####[facility] [address] [place], [address] RDW CV Normal 11.6-14.6 [facility] Comment on above: Result Comment: Canc elled via OM: Order cancelled - Patient discharged Performed By: #### L 100.0500 ####[facility] [address] [place], [address] RDW SD Normal 35.1-43.9 [facility] Comment on above: Result Comment: Canc elled via OM: Order cancelled - Patient discharged Performed By: #### L 100.0500 ####[facility] [address] [place], [address] WBC Normal 4.4-11.0 [facility] Comment on above: Result Comment: Canc elled via OM: Order cancelled - Patient discharged Performed By: #### L 100.0500 ####[facility] [address] [place], [address] HCT Normal 40-54 [facility] Comment on above: Result Comment: Canc elled via OM: MD Ordered Performed By: #### L 500.2500, L100.0500 ####[facility] [address] [place], [address] HGB Normal 13.0-16.5 [facility] Comment on above: Result Comment: Canc elled via OM: MD Ordered Performed By: #### L 500.2500, L100.0500 ####[facility] [address] [place], [address] MCH Normal 27.0-32.0 [facility] Comment on above: Result Comment: Canc elled via OM: MD Ordered Performed By: #### L 500.2500, L100.0500 ####[facility] [address] [place], [address] MCHC Normal 32-36 [facility] Comment on above: Result Comment: Canc elled via OM: MD Ordered Performed By: #### L 500.2500, L100.0500 ####[facility] [address] [place], [address] MCV Normal 80-94 [facility] Comment on above: Result Comment: Canc elled via OM: MD Ordered Performed By: #### L 500.2500, L100.0500 ####[facility] [address] [place], [address] PLT Normal 150-450 [facility] Comment on above: Result Comment: Canc elled via OM: MD Ordered Performed By: #### L 500.2500, L100.0500 ####[facility] [address] [place], [address] RBC Normal 4.6-6.2 [facility] Comment on above: Result Comment: Canc elled via OM: MD Ordered Performed By: #### L 500.2500, L100.0500 ####[facility] [address] [place], [address] RDW CV Normal 11.6-14.6 [facility] Comment on above: Result Comment: Canc elled via OM: MD Ordered Performed By: #### L 500.2500, L100.0500 ####[facility] [address] [place], [address] RDW SD Normal 35.1-43.9 [facility] Comment on above: Result Comment: Canc elled via OM: MD Ordered Performed By: #### L 500.2500, L100.0500 ####[facility] [address] [place], [address] WBC Normal 4.4-11.0 [facility] Comment on above: Result Comment: Canc elled via OM: MD Ordered Performed By: #### L 500.2500, L100.0500 ####[facility] [address] [place], [address] Basic Metabolic Profile (BMP )on 05-11-2024 BUN Normal - [facility] Comment on above: Result Comment: Canc elled via OM: MD Ordered Performed By: #### L 500.2500, L100.0500 ####[facility] [address] [place], [address] BUN/CRE Normal - [facility] Comment on above: Result Comment: Canc elled via OM: MD Ordered Performed By: #### L 500.2500, L100.0500 ####[facility] [address] [place], [address] CA,Total Normal 8.5-10.1 [facility] Comment on above: Result Comment: Canc elled via OM: MD Ordered Performed By: #### L 500.2500, L100.0500 ####[facility] [address] [place], [address] CL Normal 98-107 [facility] Comment on above: Result Comment: Canc elled via OM: MD Ordered Performed By: #### L 500.2500, L100.0500 ####[facility] [address] [place], [address] CO2 Normal 21.0-32.0 [facility] Comment on above: Result Comment: Canc elled via OM: MD Ordered Performed By: #### L 500.2500, L100.0500 ####[facility] [address] [place], [address] CREAT,SERUM Normal 0.70-1.30 [facility] Comment on above: Result Comment: Canc elled via OM: MD Ordered Performed By: #### L 500.2500, L100.0500 ####[facility] [address] [place], [address] EST GFR Normal >60 [facility] Comment on above: Result Comment: Canc elled via OM: MD Ordered Performed By: #### L 500.2500, L100.0500 ####[facility] [address] [place], [address] EST GFR - AA Normal >60 [facility] Comment on above: Result Comment: Canc elled via OM: MD Ordered Performed By: #### L 500.2500, L100.0500 ####[facility] [address] [place], [address] GAP Normal 5-15 [facility] Comment on above: Result Comment: Canc elled via OM: MD Ordered Performed By: #### L 500.2500, L100.0500 ####[facility] [address] [place], [address] GLU Normal 74-106 [facility] Comment on above: Result Comment: Canc elled via OM: MD Ordered Performed By: #### L 500.2500, L100.0500 ####[facility] [address] [place], [address] Potassium Normal 3.5-5.1 [facility] Comment on above: Result Comment: Canc elled via OM: MD Ordered Performed By: #### L 500.2500, L100.0500 ####[facility] [address] [place], [address] Basic Metabolic Profile (BMP) Normal 136-145 [facility] Comment on above: Result Comment: Canc elled via OM: MD Ordered Performed By: #### L 500.2500, L100.0500 ####[facility] [address] [place], [address] CBC-Complete Blood Cnt No Di ffon 05-11-2024 HCT Normal 40-54 [facility] Comment on above: Result Comment: Canc elled via OM: MD Ordered Performed By: #### L 500.2500, L100.0500 ####[facility] [address] [place], [address] HGB Normal 13.0-16.5 [facility] Comment on above: Result Comment: Canc elled via OM: MD Ordered Performed By: #### L 500.2500, L100.0500 ####[facility] [address] [place], [address] MCH Normal 27.0-32.0 [facility] Comment on above: Result Comment: Canc elled via OM: MD Ordered Performed By: #### L 500.2500, L100.0500 ####[facility] [address] [place], [address] MCHC Normal 32-36 [facility] Comment on above: Result Comment: Canc elled via OM: MD Ordered Performed By: #### L 500.2500, L100.0500 ####[facility] [address] [place], [address] MCV Normal 80-94 [facility] Comment on above: Result Comment: Canc elled via OM: MD Ordered Performed By: #### L 500.2500, L100.0500 ####[facility] [address] [place], [address] PLT Normal 150-450 [facility] Comment on above: Result Comment: Canc elled via OM: MD Ordered Performed By: #### L 500.2500, L100.0500 ####[facility] [address] [place], [address] RBC Normal 4.6-6.2 [facility] Comment on above: Result Comment: Canc elled via OM: MD Ordered Performed By: #### L 500.2500, L100.0500 ####[facility] [address] [place], [address] RDW CV Normal 11.6-14.6 [facility] Comment on above: Result Comment: Canc elled via OM: MD Ordered Performed By: #### L 500.2500, L100.0500 ####[facility] [address] [place], [address] RDW SD Normal 35.1-43.9 [facility] Comment on above: Result Comment: Canc elled via OM: MD Ordered Performed By: #### L 500.2500, L100.0500 ####[facility] [address] [place], [address] WBC Normal 4.4-11.0 [facility] Comment on above: Result Comment: Canc elled via OM: MD Ordered Performed By: #### L 500.2500, L100.0500 ####[facility] [address] [place], [address] Basic Metabolic Profile (BMP )on 05-10-2024 BUN/CRE 9.4 RATIO Low 10-20 [facility] Comment on above: Performed By: #### L 500.2500, L100.0500 ####[facility] [address] [place], [address] CA,Total 8.8 mg/dL Normal 8.5-10.1 [facility] Comment on above: Performed By: #### L 500.2500, L100.0500 ####[facility] [address] [place], [address] Chloride [Moles/Vol] 102 mmol/L Normal 98-107 [facility] Comment on above: Performed By: #### L 500.2500, L100.0500 ####[facility] [address] [place], [address] CO2 [Moles/Vol] 25.0 mmol/L Normal 21.0-32.0 [facility] Comment on above: Performed By: #### L 500.2500, L100.0500 ####[facility] [address] [place], [address] Creatinine [Mass/Vol] 5.98 mg/dL High 0.70-1.30 [facility] Comment on above: Result Comment: The validity of the calculated GFR GFRAA in patients over70 years has not been determined. Clinical correlation isessential. Performed By: #### L 500.2500, L100.0500 ####[facility] [address] [place], [address] ECRCL 9.33 ml/min Normal [facility] Comment on above: Performed By: #### L 500.2500, L100.0500 ####[facility] [address] [place], [address] EST GFR - AA 12 mL/min Low >60 [facility] Comment on above: Result Comment: Afri can [place] GFR Calc Performed By: #### L 500.2500, L100.0500 ####[facility] [address] [place], [address] GAP 8 Normal 5-15 [facility] Comment on above: Performed By: #### L 500.2500, L100.0500 ####[facility] [address] [place], [address] GFR/1.73 sq M.predicted among non-blacks MDRD (S/P/Bld) [Vol rate/Area] 10 mL/min/{1.73_m2} Low >60 [facility] Comment on above: Result Comment: Non- GFR Calc Performed By: #### L 500.2500, L100.0500 ####[facility] [address] [place], [address] Glucose [Mass/Vol] 141 mg/dL High 74-106 [facility] Comment on above: Result Comment: Fast ing Glucose result greater than or equal to 126 mg/dLsuggests DIABETES MELLITUS per A.D.A. criteria. Performed By: #### L 500.2500, L100.0500 ####[facility] [address] [place], [address] Potassium [Moles/Vol] 4.2 mmol/L Normal 3.5-5.1 [facility] Comment on above: Performed By: #### L 500.2500, L100.0500 ####[facility] [address] [place], [address] Sodium [Moles/Vol] 135 mmol/L Low 136-145 [facility] Comment on above: Performed By: #### L 500.2500, L100.0500 ####[facility] [address] [place], [address] Urea nitrogen [Mass/Vol] 56 mg/dL High 7-18 [facility] Comment on above: Performed By: #### L 500.2500, L100.0500 ####[facility] [address] [place], [address] Bedside Glucoseon 05-10-2024 FINGERSTICK GLU 188 mg/dL High 74-106 [facility] Comment on above: Result Comment: FANG VAZQUEZ OF PATIENT CARE PER NURSING PROTOCOL Performed By: #### L 501.080 ####[facility] [address] [place], [address] FINGERSTICK GLU 165 mg/dL High 74-106 [facility] Comment on above: Result Comment: FANG GEMENT OF PATIENT CARE PER NURSING PROTOCOL Performed By: #### L 501.080 ####[facility] [address] [place], [address] FINGERSTICK GLU 115 mg/dL High 74-106 [facility] Comment on above: Result Comment: FANG GEMENT OF PATIENT CARE PER NURSING PROTOCOL Performed By: #### L 501.080 ####[facility] [address] [place], [address] CBC-Complete Blood Cnt No Di ffon 05-10-2024 Erythrocyte distribution width (RBC) [Ratio] 15.0 % High 11.6-14.6 [facility] Comment on above: Performed By: #### L 500.2500, L100.0500 ####[facility] [address] [place], [address] Hematocrit (Bld) [Volume fraction] 29.9 % Low 40-54 [facility] Comment on above: Performed By: #### L 500.2500, L100.0500 ####[facility] [address] [place], [address] Hemoglobin (Bld) [Mass/Vol] 9.2 g/dL Low 13.0-16.5 [facility] Comment on above: Performed By: #### L 500.2500, L100.0500 ####[facility] [address] [place], [address] MCH (RBC) [Entitic mass] 29.3 pg Normal 27.0-32.0 [facility] Comment on above: Performed By: #### L 500.2500, L100.0500 ####[facility] [address] [place], [address] MCHC (RBC) [Mass/Vol] 30.8 g/dL Low 32-36 [facility] Comment on above: Performed By: #### L 500.2500, L100.0500 ####[facility] [address] [place], [address] MCV (RBC) [Entitic vol] 95.2 fL High 80-94 [facility] Comment on above: Performed By: #### L 500.2500, L100.0500 ####[facility] [address] [place], [address] Platelet mean volume (Bld) [Entitic vol] 10.5 fL Normal 6.2-12.0 [facility] Comment on above: Performed By: #### L 500.2500, L100.0500 ####[facility] [address] [place], [address] Platelets (Bld) [#/Vol] 205 10*3/uL Normal 150-450 [facility] Comment on above: Performed By: #### L 500.2500, L100.0500 ####[facility] [address] [place], [address] RBC (Bld) [#/Vol] 3.14 10*6/uL Low 4.6-6.2 [facility] Comment on above: Performed By: #### L 500.2500, L100.0500 ####[facility] [address] [place], [address] RDW SD 51.8 fl High 35.1-43.9 [facility] Comment on above: Performed By: #### L 500.2500, L100.0500 ####[facility] [address] [place], [address] WBC (Bld) [#/Vol] 8.2 10*3/uL Normal 4.4-11.0 [facility] Comment on above: Performed By: #### L 500.2500, L100.0500 ####[facility] [address] [place], [address] Culture, Anaerobic Any Sourc reed 05-10-2024 CUAN COLLECTED IN OR RIGH T HALLUX AND 1ST METATARSAL No anaerobic bacteria isolated. Normal [facility] Comment on above: Performed By: #### M 100.2000, M100.3000, M100.4001 ####[facility] [address] [place], [address] Vancomycin, Random Levelon 1 07-11-2023 VANCO, RANDOM 21.6 ug/mL High 0.0-15.0 [facility] Comment on above: Order Comment: Comme nts: PLEASE DRAW PRE-DIALYSIS Result Comment: VANC OMYCIN STANDARD DRUG THERAPY: CRITICAL VALUE IS > 15.0 mg/LVANCOMYCIN HIGH INTENSITY THERAPY: CRITICAL VALUE IS > 20.0 mg/LPLEASE CONTACT PHARMACY SERVICES (#[id number]) FOR INTERPRETATIONOF RESULTS. THIS RESULT DOES NOT REPRESENT A PEAK OR TROUGHLEVEL FOR THIS DRUG. Performed By: #### L 501.8850 ####[facility] [address] [place], [address] Basic Metabolic Profile (BMP )on 05-09-2024 BUN/CRE 9.9 RATIO Low 10-20 [facility] Comment on above: Performed By: #### L 100.0500, L500.2500 ####[facility] [address] [place], [address] CA,Total 8.8 mg/dL Normal 8.5-10.1 [facility] Comment on above: Performed By: #### L 100.0500, L500.2500 ####[facility] [address] [place], [address] Chloride [Moles/Vol] 102 mmol/L Normal 98-107 [facility] Comment on above: Performed By: #### L 100.0500, L500.2500 ####[facility] [address] [place], [address] CO2 [Moles/Vol] 27.0 mmol/L Normal 21.0-32.0 [facility] Comment on above: Performed By: #### L 100.0500, L500.2500 ####[facility] [address] [place], [address] Creatinine [Mass/Vol] 4.74 mg/dL High 0.70-1.30 [facility] Comment on above: Result Comment: The validity of the calculated GFR GFRAA in patients over70 years has not been determined. Clinical correlation isessential. Performed By: #### L 100.0500, L500.2500 ####[facility] [address] [place], [address] ECRCL 11.77 ml/min Normal [facility] Comment on above: Performed By: #### L 100.0500, L500.2500 ####[facility] [address] [place], [address] EST GFR - AA 15 mL/min Low >60 [facility] Comment on above: Result Comment: Afri can Mauritanian GFR Calc Performed By: #### L 100.0500, L500.2500 ####[facility] [address] [place], [address] GAP 6 Normal 5-15 [facility] Comment on above: Performed By: #### L 100.0500, L500.2500 ####[facility] [address] [place], [address] GFR/1.73 sq M.predicted among non-blacks MDRD (S/P/Bld) [Vol rate/Area] 13 mL/min/{1.73_m2} Low >60 [facility] Comment on above: Result Comment: Non- GFR Calc Performed By: #### L 100.0500, L500.2500 ####[facility] [address] [place], [address] Glucose [Mass/Vol] 105 mg/dL Normal 74-106 [facility] Comment on above: Result Comment: Fast ing Glucose result from 100 to 125 mg/dLsuggests IMPAIRED HOMEOSTASIS per A.D.A. criteria. Performed By: #### L 100.0500, L500.2500 ####[facility] [address] [place], [address] Potassium [Moles/Vol] 4.2 mmol/L Normal 3.5-5.1 [facility] Comment on above: Performed By: #### L 100.0500, L500.2500 ####[facility] [address] [place], [address] Sodium [Moles/Vol] 135 mmol/L Low 136-145 [facility] Comment on above: Performed By: #### L 100.0500, L500.2500 ####[facility] [address] [place], [address] Urea nitrogen [Mass/Vol] 47 mg/dL High 7-18 [facility] Comment on above: Performed By: #### L 100.0500, L500.2500 ####[facility] [address] [place], [address] Bedside Glucoseon 05-09-2024 FINGERSTICK GLU 176 mg/dL High 74-106 [facility] Comment on above: Result Comment: FANG GEMENT OF PATIENT CARE PER NURSING PROTOCOL Performed By: #### L 501.080 ####[facility] [address] [place], [address] FINGERSTICK GLU 264 mg/dL High 74-106 [facility] Comment on above: Result Comment: FANG GEMENT OF PATIENT CARE PER NURSING PROTOCOL Performed By: #### L 501.080 ####[facility] [address] [place], [address] FINGERSTICK GLU 90 mg/dL Normal 74-106 [facility] Comment on above: Result Comment: FANG GEMENT OF PATIENT CARE PER NURSING PROTOCOL Performed By: #### L 501.080 ####[facility] [address] [place], [address] CBC-Complete Blood Cnt No Di ffon 05-09-2024 Erythrocyte distribution width (RBC) [Ratio] 15.1 % High 11.6-14.6 [facility] Comment on above: Performed By: #### L 100.0500, L500.2500 ####[facility] [address] [place], [address] Hematocrit (Bld) [Volume fraction] 29.4 % Low 40-54 [facility] Comment on above: Performed By: #### L 100.0500, L500.2500 ####[facility] [address] [place], [address] Hemoglobin (Bld) [Mass/Vol] 8.7 g/dL Low 13.0-16.5 [facility] Comment on above: Performed By: #### L 100.0500, L500.2500 ####[facility] [address] [place], [address] MCH (RBC) [Entitic mass] 28.5 pg Normal 27.0-32.0 [facility] Comment on above: Performed By: #### L 100.0500, L500.2500 ####[facility] [address] [place], [address] MCHC (RBC) [Mass/Vol] 29.6 g/dL Low 32-36 [facility] Comment on above: Performed By: #### L 100.0500, L500.2500 ####[facility] [address] [place], [address] MCV (RBC) [Entitic vol] 96.4 fL High 80-94 [facility] Comment on above: Performed By: #### L 100.0500, L500.2500 ####[facility] [address] [place], [address] Platelet mean volume (Bld) [Entitic vol] 11.5 fL Normal 6.2-12.0 [facility] Comment on above: Performed By: #### L 100.0500, L500.2500 ####[facility] [address] [place], [address] Platelets (Bld) [#/Vol] 206 10*3/uL Normal 150-450 [facility] Comment on above: Performed By: #### L 100.0500, L500.2500 ####[facility] [address] [place], [address] RBC (Bld) [#/Vol] 3.05 10*6/uL Low 4.6-6.2 [facility] Comment on above: Performed By: #### L 100.0500, L500.2500 ####[facility] [address] [place], [address] RDW SD 53.7 fl High 35.1-43.9 [facility] Comment on above: Performed By: #### L 100.0500, L500.2500 ####[facility] [address] [place], [address] WBC (Bld) [#/Vol] 10.1 10*3/uL Normal 4.4-11.0 [facility] Comment on above: Performed By: #### L 100.0500, L500.2500 ####[facility] [address] [place], [address] Basic Metabolic Profile (BMP )on 05-08-2024 BUN/CRE 12.0 RATIO Normal 10-20 [facility] Comment on above: Performed By: #### L 500.2500, L100.0500 ####[facility] [address] [place], [address] CA,Total 8.5 mg/dL Normal 8.5-10.1 [facility] Comment on above: Performed By: #### L 500.2500, L100.0500 ####[facility] [address] [place], [address] Chloride [Moles/Vol] 99 mmol/L Normal 98-107 [facility] Comment on above: Performed By: #### L 500.2500, L100.0500 ####[facility] [address] [place], [address] CO2 [Moles/Vol] 27.0 mmol/L Normal 21.0-32.0 [facility] Comment on above: Performed By: #### L 500.2500, L100.0500 ####[facility] [address] [place], [address] Creatinine [Mass/Vol] 6.26 mg/dL High 0.70-1.30 [facility] Comment on above: Result Comment: The validity of the calculated GFR GFRAA in patients over70 years has not been determined. Clinical correlation isessential. Performed By: #### L 500.2500, L100.0500 ####[facility] [address] [place], [address] ECRCL 9.02 ml/min Normal [facility] Comment on above: Performed By: #### L 500.2500, L100.0500 ####[facility] [address] [place], [address] EST GFR - AA 11 mL/min Low >60 [facility] Comment on above: Result Comment: Afri can [place]ian GFR Calc Performed By: #### L 500.2500, L100.0500 ####[facility] [address] [place], [address] GAP 7 Normal 5-15 [facility] Comment on above: Performed By: #### L 500.2500, L100.0500 ####[facility] [address] [place], [address] GFR/1.73 sq M.predicted among non-blacks MDRD (S/P/Bld) [Vol rate/Area] 9 mL/min/{1.73_m2} Low >60 [facility] Comment on above: Result Comment: Non- GFR Calc Performed By: #### L 500.2500, L100.0500 ####[facility] [address] [place], [address] Glucose [Mass/Vol] 198 mg/dL High 74-106 [facility] Comment on above: Result Comment: Fast ing Glucose result greater than or equal to 126 mg/dLsuggests DIABETES MELLITUS per A.D.A. criteria. Performed By: #### L 500.2500, L100.0500 ####[facility] [address] [place], [address] Potassium [Moles/Vol] 4.9 mmol/L Normal 3.5-5.1 [facility] Comment on above: Performed By: #### L 500.2500, L100.0500 ####[facility] [address] [place], [address] Sodium [Moles/Vol] 133 mmol/L Low 136-145 [facility] Comment on above: Performed By: #### L 500.2500, L100.0500 ####[facility] [address] [place], [address] Urea nitrogen [Mass/Vol] 75 mg/dL High 7-18 [facility] Comment on above: Performed By: #### L 500.2500, L100.0500 ####[facility] [address] [place], [address] Bedside Glucoseon 05-08-2024 FINGERSTICK GLU 154 mg/dL High 74-106 [facility] Comment on above: Result Comment: FANG TAYLOR OF PATIENT CARE PER NURSING PROTOCOL Performed By: #### L 501.080 ####[facility] [address] [place], [address] FINGERSTICK GLU 212 mg/dL High 74-106 [facility] Comment on above: Result Comment: FANG GEMENT OF PATIENT CARE PER NURSING PROTOCOL Performed By: #### L 501.080 ####[facility] [address] [place], [address] FINGERSTICK GLU 194 mg/dL High 74-106 [facility] Comment on above: Result Comment: FANG GEMENT OF PATIENT CARE PER NURSING PROTOCOL Performed By: #### L 501.080 ####[facility] [address] [place], [address] CBC-Complete Blood Cnt No Di ffon 05-08-2024 Erythrocyte distribution width (RBC) [Ratio] 14.9 % High 11.6-14.6 [facility] Comment on above: Performed By: #### L 500.2500, L100.0500 ####[facility] [address] [place], [address] Hematocrit (Bld) [Volume fraction] 29.5 % Low 40-54 [facility] Comment on above: Performed By: #### L 500.2500, L100.0500 ####[facility] [address] [place], [address] Hemoglobin (Bld) [Mass/Vol] 8.8 g/dL Low 13.0-16.5 [facility] Comment on above: Performed By: #### L 500.2500, L100.0500 ####[facility] [address] [place], [address] MCH (RBC) [Entitic mass] 28.9 pg Normal 27.0-32.0 [facility] Comment on above: Performed By: #### L 500.2500, L100.0500 ####[facility] [address] [place], [address] MCHC (RBC) [Mass/Vol] 29.8 g/dL Low 32-36 [facility] Comment on above: Performed By: #### L 500.2500, L100.0500 ####[facility] [address] [place], [address] MCV (RBC) [Entitic vol] 97.0 fL High 80-94 [facility] Comment on above: Performed By: #### L 500.2500, L100.0500 ####[facility] [address] [place], [address] Platelet mean volume (Bld) [Entitic vol] 11.3 fL Normal 6.2-12.0 [facility] Comment on above: Performed By: #### L 500.2500, L100.0500 ####[facility] [address] [place], [address] Platelets (Bld) [#/Vol] 210 10*3/uL Normal 150-450 [facility] Comment on above: Performed By: #### L 500.2500, L100.0500 ####[facility] [address] [place], [address] RBC (Bld) [#/Vol] 3.04 10*6/uL Low 4.6-6.2 [facility] Comment on above: Performed By: #### L 500.2500, L100.0500 ####[facility] [address] [place], [address] RDW SD 52.8 fl High 35.1-43.9 [facility] Comment on above: Performed By: #### L 500.2500, L100.0500 ####[facility] [address] [place], [address] WBC (Bld) [#/Vol] 9.7 10*3/uL Normal 4.4-11.0 [facility] Comment on above: Performed By: #### L 500.2500, L100.0500 ####[facility] [address] [place], [address] Consultation - Infectious Dx on 05-08-2024 Consultation - Infectious Dx Normal [facility] Gram Stainon 05-08-2024 GS COLLECTED IN OR RIGH T HALLUX AND 1ST METATARSAL Gram Stain Rare White Blood Cells Rare Gram positive cocci No Epithelial cells Normal [facility] Comment on above: Performed By: #### M 100.2000, M100.3000, M100.4001 ####[facility] [address] [place], [address] Basic Metabolic Profile (BMP )on 05-07-2024 BUN/CRE 12.3 RATIO Normal 10-20 [facility] Comment on above: Performed By: #### L 500.2500, L100.0500 ####[facility] [address] [place], [address] CA,Total 8.7 mg/dL Normal 8.5-10.1 [facility] Comment on above: Performed By: #### L 500.2500, L100.0500 ####[facility] [address] [place], [address] Chloride [Moles/Vol] 100 mmol/L Normal 98-107 [facility] Comment on above: Performed By: #### L 500.2500, L100.0500 ####[facility] [address] [place], [address] CO2 [Moles/Vol] 28.0 mmol/L Normal 21.0-32.0 [facility] Comment on above: Performed By: #### L 500.2500, L100.0500 ####[facility] [address] [place], [address] Creatinine [Mass/Vol] 5.45 mg/dL High 0.70-1.30 [facility] Comment on above: Result Comment: The validity of the calculated GFR GFRAA in patients over70 years has not been determined. Clinical correlation isessential. Performed By: #### L 500.2500, L100.0500 ####[facility] [address] [place], [address] ECRCL 10.36 ml/min Normal [facility] Comment on above: Performed By: #### L 500.2500, L100.0500 ####[facility] [address] [place], [address] EST GFR - AA 13 mL/min Low >60 [facility] Comment on above: Result Comment: Afri can [place]ian GFR Calc Performed By: #### L 500.2500, L100.0500 ####[facility] [address] [place], [address] GAP 6 Normal 5-15 [facility] Comment on above: Performed By: #### L 500.2500, L100.0500 ####[facility] [address] [place], [address] GFR/1.73 sq M.predicted among non-blacks MDRD (S/P/Bld) [Vol rate/Area] 11 mL/min/{1.73_m2} Low >60 [facility] Comment on above: Result Comment: Non- GFR Calc Performed By: #### L 500.2500, L100.0500 ####[facility] [address] [place], [address] Glucose [Mass/Vol] 131 mg/dL High 74-106 [facility] Comment on above: Result Comment: Fast ing Glucose result greater than or equal to 126 mg/dLsuggests DIABETES MELLITUS per A.D.A. criteria. Performed By: #### L 500.2500, L100.0500 ####[facility] [address] [place], [address] Potassium [Moles/Vol] 4.6 mmol/L Normal 3.5-5.1 [facility] Comment on above: Performed By: #### L 500.2500, L100.0500 ####[facility] [address] [place], [address] Sodium [Moles/Vol] 134 mmol/L Low 136-145 [facility] Comment on above: Performed By: #### L 500.2500, L100.0500 ####[facility] [address] [place], [address] Urea nitrogen [Mass/Vol] 67 mg/dL High 7-18 [facility] Comment on above: Performed By: #### L 500.2500, L100.0500 ####[facility] [address] [place], [address] Bedside Glucoseon 05-07-2024 FINGERSTICK GLU 148 mg/dL High 74-106 [facility] Comment on above: Result Comment: FANG GEMENT OF PATIENT CARE PER NURSING PROTOCOL Performed By: #### L 501.080 ####[facility] [address] [place], [address] FINGERSTICK GLU 102 mg/dL Normal 74-106 [facility] Comment on above: Result Comment: FANG GEMENT OF PATIENT CARE PER NURSING PROTOCOL Performed By: #### L 501.080 ####[facility] [address] [place], [address] FINGERSTICK GLU 120 mg/dL High 74-106 [facility] Comment on above: Result Comment: FANG GEMENT OF PATIENT CARE PER NURSING PROTOCOL Performed By: #### L 501.080 ####[facility] [address] [place], [address] CBC-Complete Blood Cnt No Di ffon 05-07-2024 Erythrocyte distribution width (RBC) [Ratio] 15.0 % High 11.6-14.6 [facility] Comment on above: Performed By: #### L 500.2500, L100.0500 ####[facility] [address] [place], [address] Hematocrit (Bld) [Volume fraction] 29.8 % Low 40-54 [facility] Comment on above: Performed By: #### L 500.2500, L100.0500 ####[facility] [address] [place], [address] Hemoglobin (Bld) [Mass/Vol] 9.1 g/dL Low 13.0-16.5 [facility] Comment on above: Performed By: #### L 500.2500, L100.0500 ####[facility] [address] [place], [address] MCH (RBC) [Entitic mass] 29.6 pg Normal 27.0-32.0 [facility] Comment on above: Performed By: #### L 500.2500, L100.0500 ####[facility] [address] [place], [address] MCHC (RBC) [Mass/Vol] 30.5 g/dL Low 32-36 [facility] Comment on above: Performed By: #### L 500.2500, L100.0500 ####[facility] [address] [place], [address] MCV (RBC) [Entitic vol] 97.1 fL High 80-94 [facility] Comment on above: Performed By: #### L 500.2500, L100.0500 ####[facility] [address] [place], [address] Platelet mean volume (Bld) [Entitic vol] 11.0 fL Normal 6.2-12.0 [facility] Comment on above: Performed By: #### L 500.2500, L100.0500 ####[facility] [address] [place], [address] Platelets (Bld) [#/Vol] 223 10*3/uL Normal 150-450 [facility] Comment on above: Performed By: #### L 500.2500, L100.0500 ####[facility] [address] [place], [address] RBC (Bld) [#/Vol] 3.07 10*6/uL Low 4.6-6.2 [facility] [facility] Comment on above: Performed By: #### L 500.2500, L100.0500 ####[facility] [address] [place], [address] RDW SD 53.1 fl High 35.1-43.9 [facility] Comment on above: Performed By: #### L 500.2500, L100.0500 ####[facility] [address] [place], [address] WBC (Bld) [#/Vol] 8.1 10*3/uL Normal 4.4-11.0 [facility] Comment on above: Performed By: #### L 500.2500, L100.0500 ####[facility] [address] [place], [address] Decalcification bone/plaqueo n 05-07-2024 Decalcification bone/plaque Normal [facility] Comment on above: Performed By: #### P DEC ####[facility] [address] [place], [address] Foot 2 Viewson 05-07-2024 Foot 2 Views Normal [facility] MR/POSTOP.ANEon 05-07-2024 MR/POSTOP.ANE Normal [facility] MR/[id number] 05-07-2024 MR/POSTOPAN2 Normal [facility] Operative Reporton Operative Report Normal [facility] Basic Metabolic Profile (BMP )on 05-06-2024 BUN/CRE 11.3 RATIO Normal 10-20 [facility] Comment on above: Performed By: #### L 100.0500, L500.2500 ####[facility] [address] [place], [address] CA,Total 8.9 mg/dL Normal 8.5-10.1 [facility] Comment on above: Performed By: #### L 100.0500, L500.2500 ####[facility] [address] [place], [address] Chloride [Moles/Vol] 99 mmol/L Normal 98-107 [facility] Comment on above: Performed By: #### L 100.0500, L500.2500 ####[facility] [address] [place], [address] CO2 [Moles/Vol] 27.0 mmol/L Normal 21.0-32.0 [facility] Comment on above: Performed By: #### L 100.0500, L500.2500 ####[facility] [address] [place], [address] Creatinine [Mass/Vol] 4.26 mg/dL High 0.70-1.30 [facility] Comment on above: Result Comment: The validity of the calculated GFR GFRAA in patients over70 years has not been determined. Clinical correlation isessential. Performed By: #### L 100.0500, L500.2500 ####[facility] [address] [place], [address] ECRCL 13.25 ml/min Normal [facility] Comment on above: Performed By: #### L 100.0500, L500.2500 ####[facility] [address] [place], [address] EST GFR - AA 17 mL/min Low >60 [facility] Comment on above: Result Comment: Afri can Maur[place]ian GFR Calc Performed By: #### L 100.0500, L500.2500 ####[facility] [address] [place], [address] GAP 7 Normal 5-15 [facility] Comment on above: Performed By: #### L 100.0500, L500.2500 ####[facility] [address] [place], [address] GFR/1.73 sq M.predicted among non-blacks MDRD (S/P/Bld) [Vol rate/Area] 14 mL/min/{1.73_m2} Low >60 [facility] Comment on above: Result Comment: Non- GFR Calc Performed By: #### L 100.0500, L500.2500 ####[facility] [address] [place], [address] Glucose [Mass/Vol] 181 mg/dL High 74-106 [facility] Comment on above: Result Comment: Fast ing Glucose result greater than or equal to 126 mg/dLsuggests DIABETES MELLITUS per A.D.A. criteria. Performed By: #### L 100.0500, L500.2500 ####[facility] [address] [place], [address] Potassium [Moles/Vol] 4.3 mmol/L Normal 3.5-5.1 [facility] Comment on above: Performed By: #### L 100.0500, L500.2500 ####[facility] [address] [place], [address] Sodium [Moles/Vol] 133 mmol/L Low 136-145 [facility] Comment on above: Performed By: #### L 100.0500, L500.2500 ####[facility] [address] [place], [address] Urea nitrogen [Mass/Vol] 48 mg/dL High 7-18 [facility] Comment on above: Performed By: #### L 100.0500, L500.2500 ####[facility] [address] [place], [address] Bedside Glucoseon 05-06-2024 FINGERSTICK GLU 215 mg/dL High 74-106 [facility] Comment on above: Result Comment: FANG GEMENT OF PATIENT CARE PER NURSING PROTOCOL Performed By: #### L 501.080 ####[facility] [address] [place], [address] FINGERSTICK GLU 142 mg/dL High 74-106 [facility] Comment on above: Result Comment: FANG GEMENT OF PATIENT CARE PER NURSING PROTOCOL Performed By: #### L 501.080 ####[facility] [address] [place], [address] FINGERSTICK GLU 228 mg/dL High 74-106 [facility] Comment on above: Result Comment: FANG GEMENT OF PATIENT CARE PER NURSING PROTOCOL Performed By: #### L 501.080 ####[facility] [address] [place], [address] CBC-Complete Blood Cnt No Di ffon 05-06-2024 Erythrocyte distribution width (RBC) [Ratio] 15.1 % High 11.6-14.6 [facility] Comment on above: Performed By: #### L 100.0500, L500.2500 ####[facility] [address] [place], [address] Hematocrit (Bld) [Volume fraction] 32.3 % Low 40-54 [facility] Comment on above: Performed By: #### L 100.0500, L500.2500 ####[facility] [address] [place], [address] Hemoglobin (Bld) [Mass/Vol] 9.7 g/dL Low 13.0-16.5 [facility] Comment on above: Performed By: #### L 100.0500, L500.2500 ####[facility] [address] [place], [address] MCH (RBC) [Entitic mass] 29.2 pg Normal 27.0-32.0 [facility] Comment on above: Performed By: #### L 100.0500, L500.2500 ####[facility] [address] [place], [address] MCHC (RBC) [Mass/Vol] 30.0 g/dL Low 32-36 [facility] Comment on above: Performed By: #### L 100.0500, L500.2500 ####[facility] [address] [place], [address] MCV (RBC) [Entitic vol] 97.3 fL High 80-94 [facility] Comment on above: Performed By: #### L 100.0500, L500.2500 ####[facility] [address] [place], [address] Platelet mean volume (Bld) [Entitic vol] 11.1 fL Normal 6.2-12.0 [facility] Comment on above: Performed By: #### L 100.0500, L500.2500 ####[facility] [address] [place], [address] Platelets (Bld) [#/Vol] 238 10*3/uL Normal 150-450 [facility] Comment on above: Performed By: #### L 100.0500, L500.2500 ####[facility] [address] [place], [address] RBC (Bld) [#/Vol] 3.32 10*6/uL Low 4.6-6.2 [facility] Comment on above: Performed By: #### L 100.0500, L500.2500 ####[facility] [address] [place], [address] RDW SD 54.1 fl High 35.1-43.9 [facility] Comment on above: Performed By: #### L 100.0500, L500.2500 ####[facility] [address] [place], [address] WBC (Bld) [#/Vol] 8.5 10*3/uL Normal 4.4-11.0 [facility] Comment on above: Performed By: #### L 100.0500, L500.2500 ####[facility] [address] [place], [address] Basic Metabolic Profile (BMP )on 05-05-2024 BUN/CRE 9.2 RATIO Low 10-20 [facility] Comment on above: Performed By: #### L 100.0100, L500.2500 ####[facility] [address] [place], [address] CA,Total 8.9 mg/dL Normal 8.5-10.1 [facility] Comment on above: Performed By: #### L 100.0100, L500.2500 ####[facility] [address] [place], [address] Chloride [Moles/Vol] 95 mmol/L Low 98-107 [facility] Comment on above: Performed By: #### L 100.0100, L500.2500 ####[facility] [address] [place], [address] CO2 [Moles/Vol] 30.0 mmol/L Normal 21.0-32.0 [facility] Comment on above: Performed By: #### L 100.0100, L500.2500 ####[facility] [address] [place], [address] Creatinine [Mass/Vol] 5.32 mg/dL High 0.70-1.30 [facility] Comment on above: Result Comment: The validity of the calculated GFR GFRAA in patients over70 years has not been determined. Clinical correlation isessential. Performed By: #### L 100.0100, L500.2500 ####[facility] [address] [place], [address] ECRCL 10.63 ml/min Normal [facility] Comment on above: Performed By: #### L 100.0100, L500.2500 ####[facility] [address] [place], [address] EST GFR - AA 13 mL/min Low >60 [facility] Comment on above: Result Comment: Afri can [place] GFR Calc Performed By: #### L 100.0100, L500.2500 ####[facility] [address] [place], [address] GAP 11 Normal 5-15 [facility] Comment on above: Performed By: #### L 100.0100, L500.2500 ####[facility] [address] [place], [address] GFR/1.73 sq M.predicted among non-blacks MDRD (S/P/Bld) [Vol rate/Area] 11 mL/min/{1.73_m2} Low >60 [facility] Comment on above: Result Comment: Non- GFR Calc Performed By: #### L 100.0100, L500.2500 ####[facility] [address] [place], [address] Glucose [Mass/Vol] 111 mg/dL High 74-106 [facility] Comment on above: Result Comment: Fast ing Glucose result from 100 to 125 mg/dLsuggests IMPAIRED HOMEOSTASIS per A.D.A. criteria. Performed By: #### L 100.0100, L500.2500 ####[facility] [address] [place], [address] Potassium [Moles/Vol] 3.9 mmol/L Normal 3.5-5.1 [facility] Comment on above: Performed By: #### L 100.0100, L500.2500 ####[facility] [address] [place], [address] Sodium [Moles/Vol] 135 mmol/L Low 136-145 [facility] Comment on above: Performed By: #### L 100.0100, L500.2500 ####[facility] [address] [place], [address] Urea nitrogen [Mass/Vol] 49 mg/dL High 7-18 [facility] Comment on above: Performed By: #### L 100.0100, L500.2500 ####[facility] [address] [place], [address] Bedside Glucoseon 05-05-2024 FINGERSTICK GLU 155 mg/dL High 74-106 [facility] Comment on above: Result Comment: FANG GEMENT OF PATIENT CARE PER NURSING PROTOCOL Performed By: #### L 501.080 ####[facility] [address] [place], [address] FINGERSTICK GLU 210 mg/dL High 74-106 [facility] Comment on above: Result Comment: FANG GEMENT OF PATIENT CARE PER NURSING PROTOCOL Performed By: #### L 501.080 ####[facility] [address] [place], [address] FINGERSTICK GLU 202 mg/dL High 74-106 [facility] Comment on above: Result Comment: FANG GEMENT OF PATIENT CARE PER NURSING PROTOCOL Performed By: #### L 501.080 ####[facility] [address] [place], [address] FINGERSTICK GLU 136 mg/dL High 74-106 [facility] Comment on above: Result Comment: FANG GEMENT OF PATIENT CARE PER NURSING PROTOCOL Performed By: #### L 501.080 ####[facility] [address] [place], [address] FINGERSTICK GLU 171 mg/dL High 74-106 [facility] Comment on above: Result Comment: FANG GEMENT OF PATIENT CARE PER NURSING PROTOCOL Performed By: #### L 501.080 ####[facility] [address] [place], [address] CBC W/Diff, Automatedon 12 Absolute Lymph 2.35 X10 3/uL Normal 0.83-4.51 [facility] Comment on above: Performed By: #### L 100.0100, L500.2500 ####[facility] [address] [place], [address] Absolute Neut 6.8 X10 3/uL Normal 2.0-7.7 [facility] Comment on above: Performed By: #### L 100.0100, L500.2500 ####[facility] [address] [place], [address] Basophils/100 WBC (Bld) 0.8 % Normal 0-1 [facility] Comment on above: Performed By: #### L 100.0100, L500.2500 ####[facility] [address] [place], [address] Eosinophils/100 WBC (Bld) 3.1 % Normal 0-5 [facility] Comment on above: Performed By: #### L 100.0100, L500.2500 ####[facility] [address] [place], [address] Erythrocyte distribution width (RBC) [Ratio] 15.1 % High 11.6-14.6 [facility] Comment on above: Performed By: #### L 100.0100, L500.2500 ####[facility] [address] [place], [address] Hematocrit (Bld) [Volume fraction] 31.1 % Low 40-54 [facility] Comment on above: Performed By: #### L 100.0100, L500.2500 ####[facility] [address] [place], [address] Hemoglobin (Bld) [Mass/Vol] 9.4 g/dL Low 13.0-16.5 [facility] Comment on above: Performed By: #### L 100.0100, L500.2500 ####[facility] [address] [place], [address] IG% 0.600 Normal 0.0-0.9 [facility] Comment on above: Result Comment: IG% - Immature Granulocytes (promyelocytes, myelocytes andmetamyelocytes) > 1% indicates that a LEFT SHIFT is Present. Performed By: #### L 100.0100, L500.2500 ####[facility] [address] [place], [address] Lymphocytes/100 WBC (Bld) 22.1 % Normal 19-41 [facility] Comment on above: Performed By: #### L 100.0100, L500.2500 ####[facility] [address] [place], [address] MCH (RBC) [Entitic mass] 28.8 pg Normal 27.0-32.0 [facility] Comment on above: Performed By: #### L 100.0100, L500.2500 ####[facility] [address] [place], [address] MCHC (RBC) [Mass/Vol] 30.2 g/dL Low 32-36 [facility] Comment on above: Performed By: #### L 100.0100, L500.2500 ####[facility] [address] [place], [address] MCV (RBC) [Entitic vol] 95.4 fL High 80-94 [facility] Comment on above: Performed By: #### L 100.0100, L500.2500 ####[facility] [address] [place], [address] Monocytes/100 WBC (Bld) 9.2 % Normal 0-10 [facility] Comment on above: Performed By: #### L 100.0100, L500.2500 ####[facility] [address] [place], [address] Neutrophils/100 WBC (Bld) 64.2 % Normal 47-70 [facility] Comment on above: Performed By: #### L 100.0100, L500.2500 ####[facility] [address] [place], [address] Nucleated RBC (Bld) [#/Vol] 0 10*3/uL Normal 0-5 [facility] Comment on above: Performed By: #### L 100.0100, L500.2500 ####[facility] [address] [place], [address] Platelet mean volume (Bld) [Entitic vol] 11.2 fL Normal 6.2-12.0 [facility] Comment on above: Performed By: #### L 100.0100, L500.2500 ####[facility] [address] [place], [address] Platelets (Bld) [#/Vol] 263 10*3/uL Normal 150-450 [facility] Comment on above: Performed By: #### L 100.0100, L500.2500 ####[facility] [address] [place], [address] RBC (Bld) [#/Vol] 3.26 10*6/uL Low 4.6-6.2 [facility] Comment on above: Performed By: #### L 100.0100, L500.2500 ####[facility] [address] [place], [address] RDW SD 52.6 fl High 35.1-43.9 [facility] Comment on above: Performed By: #### L 100.0100, L500.2500 ####[facility] [address] [place], [address] WBC (Bld) [#/Vol] 10.6 10*3/uL Normal 4.4-11.0 [facility] Comment on above: Performed By: #### L 100.0100, L500.2500 ####[facility] [address] [place], [address] Consultation - Nephrologyon 05-05-2024 Consultation - Nephrology Normal [facility] 12 Lead EKGon 05-04-2024 12 Lead EKG Normal [facility] Ankle Brachial Indexon 05-04 Ankle Brachial Index Normal [facility] Basic Metabolic Profile (BMP )on 05-04-2024 BUN/CRE 6.8 RATIO Low 10-20 [facility] Comment on above: Performed By: #### L 100.0100, L501.6710, L101.9900, L500.2500 ####[facility] [address] [place], [address] CA,Total 9.4 mg/dL Normal 8.5-10.1 [facility] Comment on above: Performed By: #### L 100.0100, L501.6710, L101.9900, L500.2500 ####[facility] [address] [place], [address] Chloride [Moles/Vol] 94 mmol/L Low 98-107 [facility] Comment on above: Performed By: #### L 100.0100, L501.6710, L101.9900, L500.2500 ####[facility] [address] [place], [address] CO2 [Moles/Vol] 31.0 mmol/L Normal 21.0-32.0 [facility] Comment on above: Performed By: #### L 100.0100, L501.6710, L101.9900, L500.2500 ####[facility] [address] [place], [address] Creatinine [Mass/Vol] 4.58 mg/dL High 0.70-1.30 [facility] Comment on above: Result Comment: The validity of the calculated GFR GFRAA in patients over70 years has not been determined. Clinical correlation isessential. Performed By: #### L 100.0100, L501.6710, L101.9900, L500.2500 ####[facility] [address] [place], [address] ECRCL 13.00 ml/min Normal [facility] Comment on above: Performed By: #### L 100.0100, L501.6710, L101.9900, L500.2500 ####[facility] [address] [place], [address] EST GFR - AA 16 mL/min Low >60 [facility] Comment on above: Result Comment: Afri can [place] GFR Calc Performed By: #### L 100.0100, L501.6710, L101.9900, L500.2500 ####[facility] [address] [place], [address] GAP 7 Normal 5-15 [facility] Comment on above: Performed By: #### L 100.0100, L501.6710, L101.9900, L500.2500 ####[facility] [address] [place], [address] GFR/1.73 sq M.predicted among non-blacks MDRD (S/P/Bld) [Vol rate/Area] 13 mL/min/{1.73_m2} Low >60 [facility] Comment on above: Result Comment: Non- GFR Calc Performed By: #### L 100.0100, L501.6710, L101.9900, L500.2500 ####[facility] [address] [place], [address] Glucose [Mass/Vol] 297 mg/dL High 74-106 [facility] Comment on above: Result Comment: Gluc ose result greater than or equal to 200 mg/dLsuggests DIABETES MELLITUS per A.D.A. criteria. Performed By: #### L 100.0100, L501.6710, L101.9900, L500.2500 ####[facility] [address] [place], [address] Potassium [Moles/Vol] 3.7 mmol/L Normal 3.5-5.1 [facility] Comment on above: Performed By: #### L 100.0100, L501.6710, L101.9900, L500.2500 ####[facility] [address] [place], [address] Sodium [Moles/Vol] 133 mmol/L Low 136-145 [facility] Comment on above: Performed By: #### L 100.0100, L501.6710, L101.9900, L500.2500 ####[facility] [address] [place], [address] Urea nitrogen [Mass/Vol] 31 mg/dL High 7-18 [facility] Comment on above: Performed By: #### L 100.0100, L501.6710, L101.9900, L500.2500 ####[facility] [address] [place], [address] Bedside Glucoseon 05-04-2024 FINGERSTICK GLU 342 mg/dL High 74-106 [facility] Comment on above: Result Comment: FANG VAZQUEZ OF PATIENT CARE PER NURSING PROTOCOL Performed By: #### L 501.080 ####[facility] [address] [place], [address] CBC W/Diff, Automatedon 04-22 Absolute Lymph 2.08 X10 3/uL Normal 0.83-4.51 [facility] Comment on above: Performed By: #### L 100.0100, L501.6710, L101.9900, L500.2500 ####[facility] [address] [place], [address] Absolute Neut 5.8 X10 3/uL Normal 2.0-7.7 [facility] Comment on above: Performed By: #### L 100.0100, L501.6710, L101.9900, L500.2500 ####[facility] [address] [place], [address] Basophils/100 WBC (Bld) 1.0 % Normal 0-1 [facility] Comment on above: Performed By: #### L 100.0100, L501.6710, L101.9900, L500.2500 ####[facility] [address] [place], [address] Eosinophils/100 WBC (Bld) 2.4 % Normal 0-5 [facility] Comment on above: Performed By: #### L 100.0100, L501.6710, L101.9900, L500.2500 ####[facility] [address] [place], [address] Erythrocyte distribution width (RBC) [Ratio] 15.4 % High 11.6-14.6 [facility] Comment on above: Performed By: #### L 100.0100, L501.6710, L101.9900, L500.2500 ####[facility] [address] [place], [address] Hematocrit (Bld) [Volume fraction] 36.7 % Low 40-54 [facility] Comment on above: Performed By: #### L 100.0100, L501.6710, L101.9900, L500.2500 ####[facility] [address] [place], [address] Hemoglobin (Bld) [Mass/Vol] 11.3 g/dL Low 13.0-16.5 [facility] Comment on above: Performed By: #### L 100.0100, L501.6710, L101.9900, L500.2500 ####[facility] [address] [place], [address] IG% 0.800 Normal 0.0-0.9 [facility] Comment on above: Result Comment: IG% - Immature Granulocytes (promyelocytes, myelocytes andmetamyelocytes) > 1% indicates that a LEFT SHIFT is Present. Performed By: #### L 100.0100, L501.6710, L101.9900, L500.2500 ####[facility] [address] [place], [address] Lymphocytes/100 WBC (Bld) 22.5 % Normal 19-41 [facility] Comment on above: Performed By: #### L 100.0100, L501.6710, L101.9900, L500.2500 ####[facility] [address] [place], [address] MCH (RBC) [Entitic mass] 29.3 pg Normal 27.0-32.0 [facility] Comment on above: Performed By: #### L 100.0100, L501.6710, L101.9900, L500.2500 ####[facility] [address] [place], [address] MCHC (RBC) [Mass/Vol] 30.8 g/dL Low 32-36 [facility] Comment on above: Performed By: #### L 100.0100, L501.6710, L101.9900, L500.2500 ####[facility] [address] [place], [address] MCV (RBC) [Entitic vol] 95.1 fL High 80-94 [facility] Comment on above: Performed By: #### L 100.0100, L501.6710, L101.9900, L500.2500 ####[facility] [address] [place], [address] Monocytes/100 WBC (Bld) 10.2 % High 0-10 [facility] Comment on above: Performed By: #### L 100.0100, L501.6710, L101.9900, L500.2500 ####[facility] [address] [place], [address] Neutrophils/100 WBC (Bld) 63.1 % Normal 47-70 [facility] Comment on above: Performed By: #### L 100.0100, L501.6710, L101.9900, L500.2500 ####[facility] [address] [place], [address] Nucleated RBC (Bld) [#/Vol] 0 10*3/uL Normal 0-5 [facility] Comment on above: Performed By: #### L 100.0100, L501.6710, L101.9900, L500.2500 ####[facility] [address] [place], [address] Platelet mean volume (Bld) [Entitic vol] 11.4 fL Normal 6.2-12.0 [facility] Comment on above: Performed By: #### L 100.0100, L501.6710, L101.9900, L500.2500 ####[facility] [address] [place], [address] Platelets (Bld) [#/Vol] 288 10*3/uL Normal 150-450 [facility] Comment on above: Performed By: #### L 100.0100, L501.6710, L101.9900, L500.2500 ####[facility] [address] [place], [address] RBC (Bld) [#/Vol] 3.86 10*6/uL Low 4.6-6.2 [facility] Comment on above: Performed By: #### L 100.0100, L501.6710, L101.9900, L500.2500 ####[facility] [address] [place], [address] RDW SD 53.0 fl High 35.1-43.9 [facility] Comment on above: Performed By: #### L 100.0100, L501.6710, L101.9900, L500.2500 ####[facility] [address] [place], [address] WBC (Bld) [#/Vol] 9.2 10*3/uL Normal 4.4-11.0 [facility] Comment on above: Performed By: #### L 100.0100, L501.6710, L101.9900, L500.2500 ####[facility] [address] [place], [address] CRPon 05-04-2024 C-REACTIVE PROT 72.90 mg/L High 0.0-3.0 [facility] Comment on above: Result Comment: C-Re active Protein (CRP) provides useful information for thediagnosis, therapy and monitoring of inflammatory processesand associated diseases. For the evaluation of Relative Riskfor Cardiovascular Disease, a High Sensitivity CRP (HSCRP)should be ordered. Performed By: #### L 100.0100, L501.6710, L101.9900, L500.2500 ####[facility] [address] [place], [address] Consultation - Surgicalon Consultation - Surgical Normal [facility] Emergency Department Summary on 05-04-2024 Emergency Department Summary Normal [facility] Erythrocyte Sed Rateon 05-04 SED RATE 81 mm/hr High 0-20 [facility] Comment on above: Performed By: #### L 100.0100, L501.6710, L101.9900, L500.2500 ####[facility] [address] [place], [address] Foot min 3 Viewson 4 Foot min 3 Views Normal [facility] H AND P Exam - Hospitaliston 05-04-2024 H&P Exam - Hospitalist Normal [facility] US Art Duplex Unilat Lower E xton 05-04-2024 US Art Duplex Unilat Lower Ext Normal [facility] Basic Metabolic Profile (BMP )on 05-02-2024 BUN/CRE 6.9 RATIO Low 10-20 [facility] Comment on above: Order Comment: 107.2 Performed By: #### L 100.0500, L500.2500 ####[facility] [address] [place], [address] CA,Total 8.8 mg/dL Normal 8.5-10.1 [facility] Comment on above: Order Comment: 107.2 Performed By: #### L 100.0500, L500.2500 ####[facility] [address] [place], [address] Chloride [Moles/Vol] 96 mmol/L Low 98-107 [facility] Comment on above: Order Comment: 107.2 Performed By: #### L 100.0500, L500.2500 ####[facility] [address] [place], [address] CO2 [Moles/Vol] 30.0 mmol/L Normal 21.0-32.0 [facility] Comment on above: Order Comment: 107.2 Performed By: #### L 100.0500, L500.2500 ####[facility] [address] [place], [address] Creatinine [Mass/Vol] 4.34 mg/dL High 0.70-1.30 [facility] Comment on above: Order Comment: 107.2 Result Comment: The validity of the calculated GFR GFRAA in patients over70 years has not been determined. Clinical correlation isessential. Performed By: #### L 100.0500, L500.2500 ####[facility] [address] [place], [address] EST GFR - AA 17 mL/min Low >60 [facility] Comment on above: Order Comment: 107.2 Result Comment: Afri can Mauritanian GFR Calc Performed By: #### L 100.0500, L500.2500 ####[facility] [address] [place], [address] GAP 7 Normal 5-15 [facility] Comment on above: Order Comment: 107.2 Performed By: #### L 100.0500, L500.2500 ####[facility] [address] [place], [address] GFR/1.73 sq M.predicted among non-blacks MDRD (S/P/Bld) [Vol rate/Area] 14 mL/min/{1.73_m2} Low >60 [facility] Comment on above: Order Comment: 107.2 Result Comment: Non- GFR Calc Performed By: #### L 100.0500, L500.2500 ####[facility] [address] [place], [address] Glucose [Mass/Vol] 138 mg/dL High 74-106 [facility] Comment on above: Order Comment: 107.2 Result Comment: Fast ing Glucose result greater than or equal to 126 mg/dLsuggests DIABETES MELLITUS per A.D.A. criteria. Performed By: #### L 100.0500, L500.2500 ####[facility] [address] [place], [address] Potassium [Moles/Vol] 3.6 mmol/L Normal 3.5-5.1 [facility] Comment on above: Order Comment: 107.2 Performed By: #### L 100.0500, L500.2500 ####[facility] [address] [place], [address] Sodium [Moles/Vol] 133 mmol/L Low 136-145 [facility] Comment on above: Order Comment: 107.2 Performed By: #### L 100.0500, L500.2500 ####[facility] [address] [place], [address] Urea nitrogen [Mass/Vol] 30 mg/dL High 7-18 [facility] Comment on above: Order Comment: 107.2 Performed By: #### L 100.0500, L500.2500 ####[facility] [address] [place], [address] CBC-Complete Blood Cnt No Di ffon 05-02-2024 Erythrocyte distribution width (RBC) [Ratio] 15.1 % High 11.6-14.6 [facility] Comment on above: Order Comment: 107.2 Performed By: #### L 100.0500, L500.2500 ####[facility] [address] [place], [address] Hematocrit (Bld) [Volume fraction] 29.9 % Low 40-54 [facility] Comment on above: Order Comment: 107.2 Performed By: #### L 100.0500, L500.2500 ####[facility] [address] [place], [address] Hemoglobin (Bld) [Mass/Vol] 9.6 g/dL Low 13.0-16.5 [facility] Comment on above: Order Comment: 107.2 Performed By: #### L 100.0500, L500.2500 ####[facility] [address] [place], [address] MCH (RBC) [Entitic mass] 30.2 pg Normal 27.0-32.0 [facility] Comment on above: Order Comment: 107.2 Performed By: #### L 100.0500, L500.2500 ####[facility] [address] [place], [address] MCHC (RBC) [Mass/Vol] 32.1 g/dL Normal 32-36 [facility] Comment on above: Order Comment: 107.2 Performed By: #### L 100.0500, L500.2500 ####[facility] [address] [place], [address] MCV (RBC) [Entitic vol] 94.0 fL Normal 80-94 [facility] Comment on above: Order Comment: 107.2 Performed By: #### L 100.0500, L500.2500 ####[facility] [address] [place], [address] Platelet mean volume (Bld) [Entitic vol] 10.9 fL Normal 6.2-12.0 [facility] Comment on above: Order Comment: 107.2 Performed By: #### L 100.0500, L500.2500 ####[facility] [address] [place], [address] Platelets (Bld) [#/Vol] 275 10*3/uL Normal 150-450 [facility] Comment on above: Order Comment: 107.2 Performed By: #### L 100.0500, L500.2500 ####[facility] [address] [place], [address] RBC (Bld) [#/Vol] 3.18 10*6/uL Low 4.6-6.2 [facility] Comment on above: Order Comment: 107.2 Performed By: #### L 100.0500, L500.2500 ####[facility] [address] [place], [address] RDW SD 52.3 fl High 35.1-43.9 [facility] Comment on above: Order Comment: 107.2 Performed By: #### L 100.0500, L500.2500 ####[facility] [address] [place], [address] WBC (Bld) [#/Vol] 8.9 10*3/uL Normal 4.4-11.0 [facility] Comment on above: Order Comment: 107.2 Performed By: #### L 100.0500, L500.2500 ####[facility] [address] [place], [address] Wound Cultureon 05-01-2024 WC Normal [facility] Comment on above: Performed By: #### M 100.4001, M100.2000, M100.3000 ####[facility] [address] [place], [address] Bedside Glucoseon 04-24-2024 FINGERSTICK GLU 202 mg/dL High [address] [place] [address] Comment on above: Result Comment: FANG GEMENT OF PATIENT CARE PER NURSING PROTOCOL Performed By: #### L 501.080 ####[facility] [address] [place], [address] FINGERSTICK GLU 139 mg/dL [address] Comment on above: Result Comment: FANG GEMENT OF PATIENT CARE PER NURSING PROTOCOL Performed By: #### L 501.080 ####[facility] [address] [place], [address] FINGERSTICK GLU 153 mg/dL High [address] [place] [address] Comment on above: Result Comment: FANG GEMENT OF PATIENT CARE PER NURSING PROTOCOL Performed By: #### L 501.080 ####[facility] [address] [place], [address] FINGERSTICK GLU 250 mg/dL [address] Comment on above: Result Comment: FANG GEMENT OF PATIENT CARE PER NURSING PROTOCOL Performed By: #### L 501.080 ####[facility] [address] [place], [address] Bedside Glucoseon 04-23-2024 FINGERSTICK GLU 311 mg/dL [address] Comment on above: Result Comment: FANG GEMENT OF PATIENT CARE PER NURSING PROTOCOL Performed By: #### L 501.080 ####[facility] [address] [place], [address] FINGERSTICK GLU 252 mg/dL High [address] [place] [address] Comment on above: Result Comment: FANG GEMENT OF PATIENT CARE PER NURSING PROTOCOL Performed By: #### L 501.080 ####[facility] [address] [place], [address] FINGERSTICK GLU 173 mg/dL High 74-106 [facility] Comment on above: Result Comment: FANG GEMENT OF PATIENT CARE PER NURSING PROTOCOL Performed By: #### L 501.080 ####[facility] [address] [place], [address] Basic Metabolic Profile (BMP )on 04-22-2024 BUN/CRE 13.8 RATIO Normal 10-20 [facility] Comment on above: Performed By: #### L 100.0100, L500.2500 ####[facility] [address] [place], [address] CA,Total 8.5 mg/dL Normal 8.5-10.1 [facility] Comment on above: Performed By: #### L 100.0100, L500.2500 ####[facility] [address] [place], [address] Chloride [Moles/Vol] 100 mmol/L Normal 98-107 [facility] Comment on above: Performed By: #### L 100.0100, L500.2500 ####[facility] [address] [place], [address] CO2 [Moles/Vol] 25.0 mmol/L Normal 21.0-32.0 [facility] Comment on above: Performed By: #### L 100.0100, L500.2500 ####[facility] [address] [place], [address] Creatinine [Mass/Vol] 4.80 mg/dL High 0.70-1.30 [facility] Comment on above: Result Comment: The validity of the calculated GFR GFRAA in patients over70 years has not been determined. Clinical correlation isessential. Performed By: #### L 100.0100, L500.2500 ####[facility] [address] [place], [address] ECRCL 12.57 ml/min Normal [facility] Comment on above: Performed By: #### L 100.0100, L500.2500 ####[facility] [address] [place], [address] EST GFR - AA 15 mL/min Low >60 [facility] Comment on above: Result Comment: Afri can Mauritanian GFR Calc Performed By: #### L 100.0100, L500.2500 ####[facility] [address] [place], [address] GAP 10 Normal 5-15 [facility] Comment on above: Performed By: #### L 100.0100, L500.2500 ####[facility] [address] [place], [address] GFR/1.73 sq M.predicted among non-blacks MDRD (S/P/Bld) [Vol rate/Area] 12 mL/min/{1.73_m2} Low >60 [facility] Comment on above: Result Comment: Non- GFR Calc Performed By: #### L 100.0100, L500.2500 ####[facility] [address] [place], [address] Glucose [Mass/Vol] 66 mg/dL Low 74-106 [facility] Comment on above: Performed By: #### L 100.0100, L500.2500 ####[facility] [address] [place], [address] Potassium [Moles/Vol] 4.1 mmol/L Normal 3.5-5.1 [facility] Comment on above: Performed By: #### L 100.0100, L500.2500 ####[facility] [address] [place], [address] Sodium [Moles/Vol] 135 mmol/L Low 136-145 [facility] Comment on above: Performed By: #### L 100.0100, L500.2500 ####[facility] [address] [place], [address] Urea nitrogen [Mass/Vol] 66 mg/dL High 7-18 [facility] Comment on above: Performed By: #### L 100.0100, L500.2500 ####[facility] [address] [place], [address] Bedside Glucoseon 04-22-2024 FINGERSTICK GLU 290 mg/dL High 74-106 [facility] Comment on above: Result Comment: FANG GEMENT OF PATIENT CARE PER NURSING PROTOCOL Performed By: #### L 501.080 ####[facility] [address] [place], [address] FINGERSTICK GLU 220 mg/dL High 74-106 [facility] Comment on above: Result Comment: FANG GEMENT OF PATIENT CARE PER NURSING PROTOCOL Performed By: #### L 501.080 ####[facility] [address] [place], [address] FINGERSTICK GLU 191 mg/dL High 74-106 [facility] Comment on above: Result Comment: FANG GEMENT OF PATIENT CARE PER NURSING PROTOCOL Performed By: #### L 501.080 ####[facility] [address] [place], [address] FINGERSTICK GLU 54 mg/dL Low 74-106 [facility] Comment on above: Result Comment: FANG GEMENT OF PATIENT CARE PER NURSING PROTOCOL Performed By: #### L 501.080 ####[facility] [address] [place], [address] FINGERSTICK GLU 72 mg/dL Low 74-106 [facility] Comment on above: Result Comment: FANG GEMENT OF PATIENT CARE PER NURSING PROTOCOL Performed By: #### L 501.080 ####[facility] [address] [place], [address] CBC W/Diff, Automatedon 12-0 -2023 Absolute Lymph 2.51 X10 3/uL Normal 0.83-4.51 [facility] Comment on above: Performed By: #### L 100.0100, L500.2500 ####[facility] [address] [place], [address] Absolute Neut 11.4 X10 3/uL High 2.0-7.7 [facility] Comment on above: Performed By: #### L 100.0100, L500.2500 ####[facility] [address] [place], [address] Basophils/100 WBC (Bld) 0.5 % Normal 0-1 [facility] Comment on above: Performed By: #### L 100.0100, L500.2500 ####[facility] [address] [place], [address] Eosinophils/100 WBC (Bld) 2.2 % Normal 0-5 [facility] Comment on above: Performed By: #### L 100.0100, L500.2500 ####[facility] [address] [place], [address] Erythrocyte distribution width (RBC) [Ratio] 14.9 % High 11.6-14.6 [facility] Comment on above: Performed By: #### L 100.0100, L500.2500 ####[facility] [address] [place], [address] Hematocrit (Bld) [Volume fraction] 30.1 % Low 40-54 [facility] Comment on above: Performed By: #### L 100.0100, L500.2500 ####[facility] [address] [place], [address] Hemoglobin (Bld) [Mass/Vol] 9.4 g/dL Low 13.0-16.5 [facility] Comment on above: Performed By: #### L 100.0100, L500.2500 ####[facility] [address] [place], [address] IG% 1.700 High 0.0-0.9 [facility] Comment on above: Result Comment: IG% - Immature Granulocytes (promyelocytes, myelocytes andmetamyelocytes) > 1% indicates that a LEFT SHIFT is Present. Performed By: #### L 100.0100, L500.2500 ####[facility] [address] [place], [address] Lymphocytes/100 WBC (Bld) 15.8 % Low 19-41 [facility] Comment on above: Performed By: #### L 100.0100, L500.2500 ####[facility] [address] [place], [address] MCH (RBC) [Entitic mass] 30.1 pg Normal 27.0-32.0 [facility] Comment on above: Performed By: #### L 100.0100, L500.2500 ####[facility] [address] [place], [address] MCHC (RBC) [Mass/Vol] 31.2 g/dL Low 32-36 [facility] Comment on above: Performed By: #### L 100.0100, L500.2500 ####[facility] [address] [place], [address] MCV (RBC) [Entitic vol] 96.5 fL High 80-94 [facility] Comment on above: Performed By: #### L 100.0100, L500.2500 ####[facility] [address] [place], [address] Monocytes/100 WBC (Bld) 8.5 % Normal 0-10 [facility] Comment on above: Performed By: #### L 100.0100, L500.2500 ####[facility] [address] [place], [address] Neutrophils/100 WBC (Bld) 71.3 % High 47-70 [facility] Comment on above: Performed By: #### L 100.0100, L500.2500 ####[facility] [address] [place], [address] Nucleated RBC (Bld) [#/Vol] 0 10*3/uL Normal 0-5 [facility] Comment on above: Performed By: #### L 100.0100, L500.2500 ####[facility] [address] [place], [address] Platelet mean volume (Bld) [Entitic vol] 11.2 fL Normal 6.2-12.0 [facility] Comment on above: Performed By: #### L 100.0100, L500.2500 ####[facility] [address] [place], [address] Platelets (Bld) [#/Vol] 303 10*3/uL Normal 150-450 [facility] Comment on above: Performed By: #### L 100.0100, L500.2500 ####[facility] [address] [place], [address] RBC (Bld) [#/Vol] 3.12 10*6/uL Low 4.6-6.2 [facility] Comment on above: Performed By: #### L 100.0100, L500.2500 ####[facility] [address] [place], [address] RDW SD 52.3 fl High 35.1-43.9 [facility] Comment on above: Performed By: #### L 100.0100, L500.2500 ####[facility] [address] [place], [address] WBC (Bld) [#/Vol] 15.9 10*3/uL High 4.4-11.0 [facility] Comment on above: Performed By: #### L 100.0100, L500.2500 ####[facility] [address] [place], [address] Wound Cultureon 04-22-2024 WC Normal [facility] Comment on above: Performed By: #### M 100.2000, M100.3000 ####[facility] [address] [place], [address] Basic Metabolic Profile (BMP )on 04-21-2024 BUN/CRE 14.8 RATIO Normal 10-20 [facility] Comment on above: Performed By: #### L 500.2500, L100.0100 ####[facility] [address] [place], [address] CA,Total 8.6 mg/dL Normal 8.5-10.1 [facility] Comment on above: Performed By: #### L 500.2500, L100.0100 ####[facility] [address] [place], [address] Chloride [Moles/Vol] 98 mmol/L Normal 98-107 [facility] Comment on above: Performed By: #### L 500.2500, L100.0100 ####[facility] [address] [place], [address] CO2 [Moles/Vol] 25.0 mmol/L Normal 21.0-32.0 [facility] Comment on above: Performed By: #### L 500.2500, L100.0100 ####[facility] [address] [place], [address] Creatinine [Mass/Vol] 6.13 mg/dL High 0.70-1.30 [facility] Comment on above: Result Comment: The validity of the calculated GFR GFRAA in patients over70 years has not been determined. Clinical correlation isessential. Performed By: #### L 500.2500, L100.0100 ####[facility] [address] [place], [address] ECRCL 10.02 ml/min Normal [facility] Comment on above: Performed By: #### L 500.2500, L100.0100 ####[facility] [address] [place], [address] EST GFR - AA 11 mL/min Low >60 [facility] Comment on above: Result Comment: Afri can Mauritanian GFR Calc Performed By: #### L 500.2500, L100.0100 ####[facility] [address] [place], [address] GAP 9 Normal 5-15 [facility] Comment on above: Performed By: #### L 500.2500, L100.0100 ####[facility] [address] [place], [address] GFR/1.73 sq M.predicted among non-blacks MDRD (S/P/Bld) [Vol rate/Area] 9 mL/min/{1.73_m2} Low >60 [facility] Comment on above: Result Comment: Non- GFR Calc Performed By: #### L 500.2500, L100.0100 ####[facility] [address] [place], [address] Glucose [Mass/Vol] 123 mg/dL High 74-106 [facility] Comment on above: Result Comment: Fast ing Glucose result from 100 to 125 mg/dLsuggests IMPAIRED HOMEOSTASIS per A.D.A. criteria. Performed By: #### L 500.2500, L100.0100 ####[facility] [address] [place], [address] Potassium [Moles/Vol] 4.4 mmol/L Normal 3.5-5.1 [facility] Comment on above: Performed By: #### L 500.2500, L100.0100 ####[facility] [address] [place], [address] Sodium [Moles/Vol] 132 mmol/L Low 136-145 [facility] Comment on above: Performed By: #### L 500.2500, L100.0100 ####[facility] [address] [place], [address] Urea nitrogen [Mass/Vol] 91 mg/dL High 7-18 [facility] Comment on above: Performed By: #### L 500.2500, L100.0100 ####[facility] [address] [place], [address] Bedside Glucoseon 04-21-2024 FINGERSTICK GLU 158 mg/dL High 74-106 [facility] Comment on above: Result Comment: FANG GEMENT OF PATIENT CARE PER NURSING PROTOCOL Performed By: #### L 501.080 ####[facility] [address] [place], [address] FINGERSTICK GLU 173 mg/dL High 74-106 [facility] Comment on above: Result Comment: FANG GEMENT OF PATIENT CARE PER NURSING PROTOCOL Performed By: #### L 501.080 ####[facility] [address] [place], [address] FINGERSTICK GLU 312 mg/dL High 74-106 [facility] Comment on above: Result Comment: FANG GEMENT OF PATIENT CARE PER NURSING PROTOCOL Performed By: #### L 501.080 ####[facility] [address] [place], [address] FINGERSTICK GLU 103 mg/dL Normal 74-106 [facility] Comment on above: Result Comment: FANG GEMENT OF PATIENT CARE PER NURSING PROTOCOL Performed By: #### L 501.080 ####[facility] [address] [place], [address] CBC W/Diff, Automatedon 11-3 0-2024 Absolute Lymph 2.21 X10 3/uL Normal 0.83-4.51 [facility] Comment on above: Performed By: #### L 500.2500, L100.0100 ####[facility] [address] [place], [address] Absolute Neut 10.9 X10 3/uL High 2.0-7.7 [facility] [facility] Comment on above: Performed By: #### L 500.2500, L100.0100 ####[facility] [address] [place], [address] Basophils/100 WBC (Bld) 0.3 % Normal 0-1 [facility] Comment on above: Performed By: #### L 500.2500, L100.0100 ####[facility] [address] [place], [address] Eosinophils/100 WBC (Bld) 2.1 % Normal 0-5 [facility] Comment on above: Performed By: #### L 500.2500, L100.0100 ####[facility] [address] [place], [address] Erythrocyte distribution width (RBC) [Ratio] 14.9 % High 11.6-14.6 [facility] Comment on above: Performed By: #### L 500.2500, L100.0100 ####[facility] [address] [place], [address] Hematocrit (Bld) [Volume fraction] 31.2 % Low 40-54 [facility] Comment on above: Performed By: #### L 500.2500, L100.0100 ####[facility] [address] [place], [address] Hemoglobin (Bld) [Mass/Vol] 9.4 g/dL Low 13.0-16.5 [facility] Comment on above: Performed By: #### L 500.2500, L100.0100 ####[facility] [address] [place], [address] IG% 1.700 High 0.0-0.9 [facility] Comment on above: Result Comment: IG% - Immature Granulocytes (promyelocytes, myelocytes andmetamyelocytes) > 1% indicates that a LEFT SHIFT is Present. Performed By: #### L 500.2500, L100.0100 ####[facility] [address] [place], [address] Lymphocytes/100 WBC (Bld) 14.7 % Low 19-41 [facility] Comment on above: Performed By: #### L 500.2500, L100.0100 ####[facility] [address] [place], [address] MCH (RBC) [Entitic mass] 29.1 pg Normal 27.0-32.0 [facility] Comment on above: Performed By: #### L 500.2500, L100.0100 ####[facility] [address] [place], [address] MCHC (RBC) [Mass/Vol] 30.1 g/dL Low 32-36 [facility] Comment on above: Performed By: #### L 500.2500, L100.0100 ####[facility] [address] [place], [address] MCV (RBC) [Entitic vol] 96.6 fL High 80-94 [facility] Comment on above: Performed By: #### L 500.2500, L100.0100 ####[facility] [address] [place], [address] Monocytes/100 WBC (Bld) 8.6 % Normal 0-10 [facility] Comment on above: Performed By: #### L 500.2500, L100.0100 ####[facility] [address] [place], [address] Neutrophils/100 WBC (Bld) 72.6 % High 47-70 [facility] Comment on above: Performed By: #### L 500.2500, L100.0100 ####[facility] [address] [place], [address] Nucleated RBC (Bld) [#/Vol] 0 10*3/uL Normal 0-5 [facility] Comment on above: Performed By: #### L 500.2500, L100.0100 ####[facility] [address] [place], [address] Platelet mean volume (Bld) [Entitic vol] 10.8 fL Normal 6.2-12.0 [facility] Comment on above: Performed By: #### L 500.2500, L100.0100 ####[facility] [address] [place], [address] Platelets (Bld) [#/Vol] 285 10*3/uL Normal 150-450 [facility] Comment on above: Performed By: #### L 500.2500, L100.0100 ####[facility] [address] [place], [address] RBC (Bld) [#/Vol] 3.23 10*6/uL Low 4.6-6.2 [facility] Comment on above: Performed By: #### L 500.2500, L100.0100 ####[facility] [address] [place], [address] RDW SD 51.8 fl High 35.1-43.9 [facility] Comment on above: Performed By: #### L 500.2500, L100.0100 ####[facility] [address] [place], [address] WBC (Bld) [#/Vol] 15.0 10*3/uL High 4.4-11.0 [facility] Comment on above: Performed By: #### L 500.2500, L100.0100 ####[facility] [address] [place], [address] Culture, Anaerobic Any Sourc reed 04-21-2024 CUAN Normal [facility] Comment on above: Performed By: #### M 100.4001, M100.2000, M100.3000 ####[facility] [address] [place], [address] Vancomycin, Random Levelon 1 06-21-2023 VANCO, RANDOM 15.6 ug/mL High 0.0-15.0 [facility] Comment on above: Result Comment: VANC OMYCIN STANDARD DRUG THERAPY: CRITICAL VALUE IS > 15.0 mg/LVANCOMYCIN HIGH INTENSITY THERAPY: CRITICAL VALUE IS > 20.0 mg/LPLEASE CONTACT PHARMACY SERVICES (#3347) FOR INTERPRETATIONOF RESULTS. THIS RESULT DOES NOT REPRESENT A PEAK OR TROUGHLEVEL FOR THIS DRUG. Performed By: #### L 501.8850 ####[facility] [address] [place], [address] Basic Metabolic Profile (BMP )on 04-20-2024 BUN/CRE 14.3 RATIO Normal 10-20 [facility] Comment on above: Performed By: #### L 100.0100, L500.2500 ####[facility] [address] [place], [address] CA,Total 8.6 mg/dL Normal 8.5-10.1 [facility] Comment on above: Performed By: #### L 100.0100, L500.2500 ####[facility] [address] [place], [address] Chloride [Moles/Vol] 98 mmol/L Normal 98-107 [facility] Comment on above: Performed By: #### L 100.0100, L500.2500 ####[facility] [address] [place], [address] CO2 [Moles/Vol] 23.0 mmol/L Normal 21.0-32.0 [facility] Comment on above: Performed By: #### L 100.0100, L500.2500 ####[facility] [address] [place], [address] Creatinine [Mass/Vol] 5.23 mg/dL High 0.70-1.30 [facility] Comment on above: Result Comment: The validity of the calculated GFR GFRAA in patients over70 years has not been determined. Clinical correlation isessential. Performed By: #### L 100.0100, L500.2500 ####[facility] [address] [place], [address] ECRCL 11.74 ml/min Normal [facility] Comment on above: Performed By: #### L 100.0100, L500.2500 ####[facility] [address] [place], [address] EST GFR - AA 14 mL/min Low >60 [facility] Comment on above: Result Comment: Afri can Maur[place] GFR Calc Performed By: #### L 100.0100, L500.2500 ####[facility] [address] [place], [address] GAP 10 Normal 5-15 [facility] Comment on above: Performed By: #### L 100.0100, L500.2500 ####[facility] [address] [place], [address] GFR/1.73 sq M.predicted among non-blacks MDRD (S/P/Bld) [Vol rate/Area] 11 mL/min/{1.73_m2} Low >60 [facility] Comment on above: Result Comment: Non- GFR Calc Performed By: #### L 100.0100, L500.2500 ####[facility] [address] [place], [address] Glucose [Mass/Vol] 264 mg/dL High 74-106 [facility] Comment on above: Result Comment: Gluc ose result greater than or equal to 200 mg/dLsuggests DIABETES MELLITUS per A.D.A. criteria. Performed By: #### L 100.0100, L500.2500 ####[facility] [address] [place], [address] Potassium [Moles/Vol] 4.4 mmol/L Normal 3.5-5.1 [facility] Comment on above: Performed By: #### L 100.0100, L500.2500 ####[facility] [address] [place], [address] Sodium [Moles/Vol] 131 mmol/L Low 136-145 [facility] Comment on above: Performed By: #### L 100.0100, L500.2500 ####[facility] [address] [place], [address] Urea nitrogen [Mass/Vol] 75 mg/dL High 7-18 [facility] Comment on above: Performed By: #### L 100.0100, L500.2500 ####[facility] [address] [place], [address] Bedside Glucoseon 04-20-2024 FINGERSTICK GLU 317 mg/dL High 74-106 [facility] Comment on above: Result Comment: FANG GEMENT OF PATIENT CARE PER NURSING PROTOCOL Performed By: #### L 501.080 ####[facility] [address] [place], [address] FINGERSTICK GLU 306 mg/dL High [address] [place] [address] Comment on above: Result Comment: FANG GEMENT OF PATIENT CARE PER NURSING PROTOCOL Performed By: #### L 501.080 ####[facility] [address] [place], [address] FINGERSTICK GLU 254 mg/dL High 74-106 [facility] Comment on above: Result Comment: FANG VAZQUEZ OF PATIENT CARE PER NURSING PROTOCOL Performed By: #### L 501.080 ####[facility] [address] [place], [address] CBC W/Diff, Automatedon 11-2 Absolute Lymph 1.78 X10 3/uL Normal 0.83-4.51 [facility] Comment on above: Performed By: #### L 100.0100, L500.2500 ####[facility] [address] [place], [address] Absolute Neut 10.4 X10 3/uL High 2.0-7.7 [facility] Comment on above: Performed By: #### L 100.0100, L500.2500 ####[facility] [address] [place], [address] Basophils/100 WBC (Bld) 0.4 % Normal 0-1 [facility] Comment on above: Performed By: #### L 100.0100, L500.2500 ####[facility] [address] [place], [address] Eosinophils/100 WBC (Bld) 2.2 % Normal 0-5 [facility] Comment on above: Performed By: #### L 100.0100, L500.2500 ####[facility] [address] [place], [address] Erythrocyte distribution width (RBC) [Ratio] 14.8 % High 11.6-14.6 [facility] Comment on above: Performed By: #### L 100.0100, L500.2500 ####[facility] [address] [place], [address] Hematocrit (Bld) [Volume fraction] 30.3 % Low 40-54 [facility] Comment on above: Performed By: #### L 100.0100, L500.2500 ####[facility] [address] [place], [address] Hemoglobin (Bld) [Mass/Vol] 9.6 g/dL Low 13.0-16.5 [facility] Comment on above: Performed By: #### L 100.0100, L500.2500 ####[facility] [address] [place], [address] IG% 1.400 High 0.0-0.9 [facility] Comment on above: Result Comment: IG% - Immature Granulocytes (promyelocytes, myelocytes andmetamyelocytes) > 1% indicates that a LEFT SHIFT is Present. Performed By: #### L 100.0100, L500.2500 ####[facility] [address] [place], [address] Lymphocytes/100 WBC (Bld) 12.8 % Low 19-41 [facility] Comment on above: Performed By: #### L 100.0100, L500.2500 ####[facility] [address] [place], [address] MCH (RBC) [Entitic mass] 30.3 pg Normal 27.0-32.0 [facility] Comment on above: Performed By: #### L 100.0100, L500.2500 ####[facility] [address] [place], [address] MCHC (RBC) [Mass/Vol] 31.7 g/dL Low 32-36 [facility] Comment on above: Performed By: #### L 100.0100, L500.2500 ####[facility] [address] [place], [address] MCV (RBC) [Entitic vol] 95.6 fL High 80-94 [facility] Comment on above: Performed By: #### L 100.0100, L500.2500 ####[facility] [address] [place], [address] Monocytes/100 WBC (Bld) 8.5 % Normal 0-10 [facility] Comment on above: Performed By: #### L 100.0100, L500.2500 ####[facility] [address] [place], [address] Neutrophils/100 WBC (Bld) 74.7 % High 47-70 [facility] Comment on above: Performed By: #### L 100.0100, L500.2500 ####[facility] [address] [place], [address] Nucleated RBC (Bld) [#/Vol] 0 10*3/uL Normal 0-5 [facility] Comment on above: Performed By: #### L 100.0100, L500.2500 ####[facility] [address] [place], [address] Platelet mean volume (Bld) [Entitic vol] 11.2 fL Normal 6.2-12.0 [facility] Comment on above: Performed By: #### L 100.0100, L500.2500 ####[facility] [address] [place], [address] Platelets (Bld) [#/Vol] 260 10*3/uL Normal 150-450 [facility] Comment on above: Performed By: #### L 100.0100, L500.2500 ####[facility] [address] [place], [address] RBC (Bld) [#/Vol] 3.17 10*6/uL Low 4.6-6.2 [facility] Comment on above: Performed By: #### L 100.0100, L500.2500 ####[facility] [address] [place], [address] RDW SD 51.7 fl High 35.1-43.9 [facility] Comment on above: Performed By: #### L 100.0100, L500.2500 ####[facility] [facility] [address] [place], [address] WBC (Bld) [#/Vol] 13.9 10*3/uL High 4.4-11.0 [facility] Comment on above: Performed By: #### L 100.0100, L500.2500 ####[facility] [address] [place], [address] Basic Metabolic Profile (BMP )on 04-19-2024 BUN/CRE 14.5 RATIO Normal 10-20 [facility] Comment on above: Performed By: #### L 500.2500, L100.0100 ####[facility] [address] [place], [address] CA,Total 8.4 mg/dL Low 8.5-10.1 [facility] Comment on above: Performed By: #### L 500.2500, L100.0100 ####[facility] [address] [place], [address] Chloride [Moles/Vol] 100 mmol/L Normal 98-107 [facility] Comment on above: Performed By: #### L 500.2500, L100.0100 ####[facility] [address] [place], [address] CO2 [Moles/Vol] 25.0 mmol/L Normal 21.0-32.0 [facility] Comment on above: Performed By: #### L 500.2500, L100.0100 ####[facility] [address] [place], [address] Creatinine [Mass/Vol] 4.13 mg/dL High 0.70-1.30 [facility] Comment on above: Result Comment: The validity of the calculated GFR GFRAA in patients over70 years has not been determined. Clinical correlation isessential. Performed By: #### L 500.2500, L100.0100 ####[facility] [address] [place], [address] ECRCL 14.76 ml/min Normal [facility] Comment on above: Performed By: #### L 500.2500, L100.0100 ####[facility] [address] [place], [address] EST GFR - AA 18 mL/min Low >60 [facility] Comment on above: Result Comment: Afri can [place] GFR Calc Performed By: #### L 500.2500, L100.0100 ####[facility] [address] [place], [address] GAP 9 Normal 5-15 [facility] Comment on above: Performed By: #### L 500.2500, L100.0100 ####[facility] [address] [place], [address] GFR/1.73 sq M.predicted among non-blacks MDRD (S/P/Bld) [Vol rate/Area] 15 mL/min/{1.73_m2} Low >60 [facility] Comment on above: Result Comment: Non- GFR Calc Performed By: #### L 500.2500, L100.0100 ####[facility] [address] [place], [address] Glucose [Mass/Vol] 272 mg/dL High 74-106 [facility] Comment on above: Result Comment: Gluc ose result greater than or equal to 200 mg/dLsuggests DIABETES MELLITUS per A.D.A. criteria. Performed By: #### L 500.2500, L100.0100 ####[facility] [address] [place], [address] Potassium [Moles/Vol] 4.2 mmol/L Normal 3.5-5.1 [facility] Comment on above: Performed By: #### L 500.2500, L100.0100 ####[facility] [address] [place], [address] Sodium [Moles/Vol] 134 mmol/L Low 136-145 [facility] Comment on above: Performed By: #### L 500.2500, L100.0100 ####[facility] [address] [place], [address] Urea nitrogen [Mass/Vol] 60 mg/dL High 7-18 [facility] Comment on above: Performed By: #### L 500.2500, L100.0100 ####[facility] [address] [place], [address] Bedside Glucoseon 04-19-2024 FINGERSTICK GLU 261 mg/dL High 74-106 [facility] Comment on above: Result Comment: FANG GEMENT OF PATIENT CARE PER NURSING PROTOCOL Performed By: #### L 501.080 ####[facility] [address] [place], [address] FINGERSTICK GLU 292 mg/dL High 74-106 [facility] Comment on above: Result Comment: FANG GEMENT OF PATIENT CARE PER NURSING PROTOCOL Performed By: #### L 501.080 ####[facility] [address] [place], [address] FINGERSTICK GLU 298 mg/dL High 74-106 [facility] Comment on above: Result Comment: FANG GEMENT OF PATIENT CARE PER NURSING PROTOCOL Performed By: #### L 501.080 ####[facility] [address] [place], [address] FINGERSTICK GLU 247 mg/dL High 74-106 [facility] Comment on above: Result Comment: FANG GEMENT OF PATIENT CARE PER NURSING PROTOCOL Performed By: #### L 501.080 ####[facility] [address] [place], [address] CBC W/Diff, Automatedon 11-2 Absolute Lymph 1.63 X10 3/uL Normal 0.83-4.51 [facility] Comment on above: Performed By: #### L 500.2500, L100.0100 ####[facility] [address] [place], [address] Absolute Neut 11.4 X10 3/uL High 2.0-7.7 [facility] Comment on above: Performed By: #### L 500.2500, L100.0100 ####[facility] [address] [place], [address] Basophils/100 WBC (Bld) 0.3 % Normal 0-1 [facility] Comment on above: Performed By: #### L 500.2500, L100.0100 ####[facility] [address] [place], [address] Eosinophils/100 WBC (Bld) 1.1 % Normal 0-5 [facility] Comment on above: Performed By: #### L 500.2500, L100.0100 ####[facility] [address] [place], [address] Erythrocyte distribution width (RBC) [Ratio] 15.0 % High 11.6-14.6 [facility] Comment on above: Performed By: #### L 500.2500, L100.0100 ####[facility] [address] [place], [address] Hematocrit (Bld) [Volume fraction] 30.5 % Low 40-54 [facility] Comment on above: Performed By: #### L 500.2500, L100.0100 ####[facility] [address] [place], [address] Hemoglobin (Bld) [Mass/Vol] 9.4 g/dL Low 13.0-16.5 [facility] Comment on above: Performed By: #### L 500.2500, L100.0100 ####[facility] [address] [place], [address] IG% 0.900 Normal 0.0-0.9 [facility] Comment on above: Result Comment: IG% - Immature Granulocytes (promyelocytes, myelocytes andmetamyelocytes) > 1% indicates that a LEFT SHIFT is Present. Performed By: #### L 500.2500, L100.0100 ####[facility] [address] [place], [address] Lymphocytes/100 WBC (Bld) 11.1 % Low 19-41 [facility] Comment on above: Performed By: #### L 500.2500, L100.0100 ####[facility] [address] [place], [address] MCH (RBC) [Entitic mass] 29.8 pg Normal 27.0-32.0 [facility] Comment on above: Performed By: #### L 500.2500, L100.0100 ####[facility] [address] [place], [address] MCHC (RBC) [Mass/Vol] 30.8 g/dL Low 32-36 [facility] Comment on above: Performed By: #### L 500.2500, L100.0100 ####[facility] [address] [place], [address] MCV (RBC) [Entitic vol] 96.8 fL High 80-94 [facility] Comment on above: Performed By: #### L 500.2500, L100.0100 ####[facility] [address] [place], [address] Monocytes/100 WBC (Bld) 8.9 % Normal 0-10 [facility] Comment on above: Performed By: #### L 500.2500, L100.0100 ####[facility] [address] [place], [address] Neutrophils/100 WBC (Bld) 77.7 % High 47-70 [facility] Comment on above: Performed By: #### L 500.2500, L100.0100 ####[facility] [address] [place], [address] Nucleated RBC (Bld) [#/Vol] 0 10*3/uL Normal 0-5 [facility] Comment on above: Performed By: #### L 500.2500, L100.0100 ####[facility] [address] [place], [address] Platelet mean volume (Bld) [Entitic vol] 11.4 fL Normal 6.2-12.0 [facility] Comment on above: Performed By: #### L 500.2500, L100.0100 ####[facility] [address] [place], [address] Platelets (Bld) [#/Vol] 253 10*3/uL Normal 150-450 [facility] Comment on above: Performed By: #### L 500.2500, L100.0100 ####[facility] [address] [place], [address] RBC (Bld) [#/Vol] 3.15 10*6/uL Low 4.6-6.2 [facility] Comment on above: Performed By: #### L 500.2500, L100.0100 ####[facility] [address] [place], [address] RDW SD 52.9 fl High 35.1-43.9 [facility] Comment on above: Performed By: #### L 500.2500, L100.0100 ####[facility] [address] [place], [address] WBC (Bld) [#/Vol] 14.6 10*3/uL High 4.4-11.0 [facility] Comment on above: Performed By: #### L 500.2500, L100.0100 ####[facility] [address] [place], [address] Culture, Blood (WB)on 2023 CUB Blood cultures x2 fr om two different sites No growth in 5 days. Normal [facility] Comment on above: Performed By: #### M 200.1000 ####[facility] [address] [place], [address] ACT Activated Clotting Timeo n 04-18-2024 ACTk CLOT TIME 222 sec High 74-137 [facility] Comment on above: Performed By: #### L 9100.0100 ####[facility] [address] [place], [address] BUNon 04-18-2024 Urea nitrogen [Mass/Vol] 39 mg/dL High 7-18 [facility] Comment on above: Performed By: #### L 501.1105, L501.1000 ####[facility] [address] [place], [address] Basic Metabolic Profile (BMP )on 04-18-2024 BUN/CRE 16.6 RATIO Normal 10-20 [facility] Comment on above: Performed By: #### L 500.2500, L100.0100 ####[facility] [address] [place], [address] CA,Total 8.5 mg/dL Normal 8.5-10.1 [facility] Comment on above: Performed By: #### L 500.2500, L100.0100 ####[facility] [address] [place], [address] Chloride [Moles/Vol] 98 mmol/L Normal 98-107 [facility] Comment on above: Performed By: #### L 500.2500, L100.0100 ####[facility] [address] [place], [address] CO2 [Moles/Vol] 24.0 mmol/L Normal 21.0-32.0 [facility] Comment on above: Performed By: #### L 500.2500, L100.0100 ####[facility] [address] [place], [address] Creatinine [Mass/Vol] 5.00 mg/dL High 0.70-1.30 [facility] Comment on above: Result Comment: The validity of the calculated GFR GFRAA in patients over70 years has not been determined. Clinical correlation isessential. Performed By: #### L 500.2500, L100.0100 ####[facility] [address] [place], [address] ECRCL 12.43 ml/min Normal [facility] Comment on above: Performed By: #### L 500.2500, L100.0100 ####[facility] [address] [place], [address] EST GFR - AA 14 mL/min Low >60 [facility] Comment on above: Result Comment: Afri can Mauritanian GFR Calc Performed By: #### L 500.2500, L100.0100 ####[facility] [address] [place], [address] GAP 10 Normal 5-15 [facility] Comment on above: Performed By: #### L 500.2500, L100.0100 ####[facility] [address] [place], [address] GFR/1.73 sq M.predicted among non-blacks MDRD (S/P/Bld) [Vol rate/Area] 12 mL/min/{1.73_m2} Low >60 [facility] Comment on above: Result Comment: Non- GFR Calc Performed By: #### L 500.2500, L100.0100 ####[facility] [address] [place], [address] Glucose [Mass/Vol] 136 mg/dL High 74-106 [facility] Comment on above: Result Comment: Fast ing Glucose result greater than or equal to 126 mg/dLsuggests DIABETES MELLITUS per A.D.A. criteria. Performed By: #### L 500.2500, L100.0100 ####[facility] [address] [place], [address] Potassium [Moles/Vol] 4.1 mmol/L Normal 3.5-5.1 [facility] Comment on above: Performed By: #### L 500.2500, L100.0100 ####[facility] [address] [place], [address] Sodium [Moles/Vol] 132 mmol/L Low 136-145 [facility] Comment on above: Performed By: #### L 500.2500, L100.0100 ####[facility] [address] [place], [address] Urea nitrogen [Mass/Vol] 83 mg/dL High 7-18 [facility] Comment on above: Performed By: #### L 500.2500, L100.0100 ####[facility] [address] [place], [address] Bedside Glucoseon 04-18-2024 FINGERSTICK GLU 289 mg/dL High 74-106 [facility] Comment on above: Result Comment: FANG GEMENT OF PATIENT CARE PER NURSING PROTOCOL Performed By: #### L 501.080 ####[facility] [address] [place], [address] FINGERSTICK GLU 106 mg/dL Normal 74-106 [facility] Comment on above: Result Comment: FANG GEMENT OF PATIENT CARE PER NURSING PROTOCOL Performed By: #### L 501.080 ####[facility] [address] [place], [address] FINGERSTICK GLU 123 mg/dL High 74-106 [facility] Comment on above: Result Comment: FANG GEMENT OF PATIENT CARE PER NURSING PROTOCOL Performed By: #### L 501.080 ####[facility] [address] [place], [address] FINGERSTICK GLU 132 mg/dL High 74-106 [facility] Comment on above: Result Comment: FANG GEMENT OF PATIENT CARE PER NURSING PROTOCOL Performed By: #### L 501.080 ####[facility] [address] [place], [address] FINGERSTICK GLU 313 mg/dL High 74-106 [facility] Comment on above: Result Comment: FANG GEMENT OF PATIENT CARE PER NURSING PROTOCOL Performed By: #### L 501.080 ####[facility] [address] [place], [address] CBC W/Diff, Automatedon 03-24 Absolute Lymph 1.73 X10 3/uL Normal 0.83-4.51 [facility] Comment on above: Performed By: #### L 500.2500, L100.0100 ####[facility] [address] [place], [address] Absolute Neut 11.4 X10 3/uL High 2.0-7.7 [facility] Comment on above: Performed By: #### L 500.2500, L100.0100 ####[facility] [address] [place], [address] Basophils/100 WBC (Bld) 0.3 % Normal 0-1 [facility] Comment on above: Performed By: #### L 500.2500, L100.0100 ####[facility] [address] [place], [address] Eosinophils/100 WBC (Bld) 1.4 % Normal 0-5 [facility] Comment on above: Performed By: #### L 500.2500, L100.0100 ####[facility] [address] [place], [address] Erythrocyte distribution width (RBC) [Ratio] 14.8 % High 11.6-14.6 [facility] Comment on above: Performed By: #### L 500.2500, L100.0100 ####[facility] [address] [place], [address] Hematocrit (Bld) [Volume fraction] 30.8 % Low 40-54 [facility] Comment on above: Performed By: #### L 500.2500, L100.0100 ####[facility] [address] [place], [address] Hemoglobin (Bld) [Mass/Vol] 9.5 g/dL Low 13.0-16.5 [facility] Comment on above: Performed By: #### L 500.2500, L100.0100 ####[facility] [address] [place], [address] IG% 0.900 Normal 0.0-0.9 [facility] Comment on above: Result Comment: IG% - Immature Granulocytes (promyelocytes, myelocytes andmetamyelocytes) > 1% indicates that a LEFT SHIFT is Present. Performed By: #### L 500.2500, L100.0100 ####[facility] [address] [place], [address] Lymphocytes/100 WBC (Bld) 11.7 % Low 19-41 [facility] Comment on above: Performed By: #### L 500.2500, L100.0100 ####[facility] [address] [place], [address] MCH (RBC) [Entitic mass] 29.8 pg Normal 27.0-32.0 [facility] Comment on above: Performed By: #### L 500.2500, L100.0100 ####[facility] [address] [place], [address] MCHC (RBC) [Mass/Vol] 30.8 g/dL Low 32-36 [facility] Comment on above: Performed By: #### L 500.2500, L100.0100 ####[facility] [address] [place], [address] MCV (RBC) [Entitic vol] 96.6 fL High 80-94 [facility] Comment on above: Performed By: #### L 500.2500, L100.0100 ####[facility] [address] [place], [address] Monocytes/100 WBC (Bld) 8.4 % Normal 0-10 [facility] Comment on above: Performed By: #### L 500.2500, L100.0100 ####[facility] [address] [place], [address] Neutrophils/100 WBC (Bld) 77.3 % High 47-70 [facility] Comment on above: Performed By: #### L 500.2500, L100.0100 ####[facility] [address] [place], [address] Nucleated RBC (Bld) [#/Vol] 0 10*3/uL Normal 0-5 [facility] Comment on above: Performed By: #### L 500.2500, L100.0100 ####[facility] [address] [place], [address] Platelet mean volume (Bld) [Entitic vol] 11.7 fL Normal 6.2-12.0 [facility] Comment on above: Performed By: #### L 500.2500, L100.0100 ####[facility] [address] [place], [address] Platelets (Bld) [#/Vol] 250 10*3/uL Normal 150-450 [facility] Comment on above: Performed By: #### L 500.2500, L100.0100 ####[facility] [address] [place], [address] RBC (Bld) [#/Vol] 3.19 10*6/uL Low 4.6-6.2 [facility] Comment on above: Performed By: #### L 500.2500, L100.0100 ####[facility] [address] [place], [address] RDW SD 51.9 fl High 35.1-43.9 [facility] Comment on above: Performed By: #### L 500.2500, L100.0100 ####[facility] [address] [place], [address] WBC (Bld) [#/Vol] 14.7 10*3/uL High 4.4-11.0 [facility] Comment on above: Performed By: #### L 500.2500, L100.0100 ####[facility] [address] [place], [address] Operative Reporton 4 Operative Report Normal [facility] Serum Creatinine AND GFRon 1 06-18-2023 Creatinine [Mass/Vol] 2.45 mg/dL High 0.70-1.30 [facility] Comment on above: Result Comment: The validity of the calculated GFR GFRAA in patients over70 years has not been determined. Clinical correlation isessential. Performed By: #### L 501.1105, L501.1000 ####[facility] [address] [place], [address] ECRCL 24.91 ml/min Normal [facility] Comment on above: Performed By: #### L 501.1105, L501.1000 ####[facility] [address] [place], [address] EST GFR - AA 32 mL/min Low >60 [facility] Comment on above: Result Comment: Afri can [place]itanian GFR Calc Performed By: #### L 501.1105, L501.1000 ####[facility] [address] [place], [address] GFR/1.73 sq M.predicted among non-blacks MDRD (S/P/Bld) [Vol rate/Area] 27 mL/min/{1.73_m2} Low >60 [facility] Comment on above: Result Comment: Non- GFR Calc Performed By: #### L 501.1105, L501.1000 ####[facility] [address] [place], [address] Vancomycin, Random Levelon 1 06-18-2023 VANCO, RANDOM 16.5 ug/mL High 0.0-15.0 [facility] Comment on above: Order Comment: Comme nts: WITH AM LABS PLEASE, PRIOR TO HD Result Comment: VANC OMYCIN STANDARD DRUG THERAPY: CRITICAL VALUE IS > 15.0 mg/LVANCOMYCIN HIGH INTENSITY THERAPY: CRITICAL VALUE IS > 20.0 mg/LPLEASE CONTACT PHARMACY SERVICES (#[id number]) FOR INTERPRETATIONOF RESULTS. THIS RESULT DOES NOT REPRESENT A PEAK OR TROUGHLEVEL FOR THIS DRUG. Performed By: #### L 501.8850 ####[facility] [address] [place], [address] Basic Metabolic Profile (BMP )on 04-17-2024 BUN/CRE 14.9 RATIO Normal 10-20 [facility] Comment on above: Performed By: #### L 100.0100, L500.2500 ####[facility] [address] [place], [address] CA,Total 8.7 mg/dL Normal 8.5-10.1 [facility] Comment on above: Performed By: #### L 100.0100, L500.2500 ####[facility] [address] [place], [address] Chloride [Moles/Vol] 99 mmol/L Normal 98-107 [facility] Comment on above: Performed By: #### L 100.0100, L500.2500 ####[facility] [address] [place], [address] CO2 [Moles/Vol] 27.0 mmol/L Normal 21.0-32.0 [facility] Comment on above: Performed By: #### L 100.0100, L500.2500 ####[facility] [address] [place], [address] Creatinine [Mass/Vol] 3.88 mg/dL High 0.70-1.30 [facility] Comment on above: Result Comment: The validity of the calculated GFR GFRAA in patients over70 years has not been determined. Clinical correlation isessential. Performed By: #### L 100.0100, L500.2500 ####[facility] [address] [place], [address] ECRCL 15.55 ml/min Normal [facility] Comment on above: Performed By: #### L 100.0100, L500.2500 ####[facility] [address] [place], [address] EST GFR - AA 19 mL/min Low >60 [facility] Comment on above: Result Comment: Afri can [place]ian GFR Calc Performed By: #### L 100.0100, L500.2500 ####[facility] [address] [place], [address] GAP 8 Normal 5-15 [facility] Comment on above: Performed By: #### L 100.0100, L500.2500 ####[facility] [address] [place], [address] GFR/1.73 sq M.predicted among non-blacks MDRD (S/P/Bld) [Vol rate/Area] 16 mL/min/{1.73_m2} Low >60 [facility] Comment on above: Result Comment: Non- GFR Calc Performed By: #### L 100.0100, L500.2500 ####[facility] [address] [place], [address] Glucose [Mass/Vol] 139 mg/dL High 74-106 [facility] Comment on above: Result Comment: Fast ing Glucose result greater than or equal to 126 mg/dLsuggests DIABETES MELLITUS per A.D.A. criteria. Performed By: #### L 100.0100, L500.2500 ####[facility] [address] [place], [address] Potassium [Moles/Vol] 4.0 mmol/L Normal 3.5-5.1 [facility] Comment on above: Performed By: #### L 100.0100, L500.2500 ####[facility] [address] [place], [address] Sodium [Moles/Vol] 133 mmol/L Low 136-145 [facility] Comment on above: Performed By: #### L 100.0100, L500.2500 ####[facility] [address] [place], [address] Urea nitrogen [Mass/Vol] 58 mg/dL High 7-18 [facility] Comment on above: Performed By: #### L 100.0100, L500.2500 ####[facility] [address] [place], [address] Bedside Glucoseon 04-17-2024 FINGERSTICK GLU 337 mg/dL High [address] [facility] Comment on above: Result Comment: FANG GEMENT OF PATIENT CARE PER NURSING PROTOCOL Performed By: #### L 501.080 ####[facility] [address] [place], [address] FINGERSTICK GLU 219 mg/dL High [address] [place] [address] Comment on above: Result Comment: FANG GEMENT OF PATIENT CARE PER NURSING PROTOCOL Performed By: #### L 501.080 ####[facility] [address] [place], [address] FINGERSTICK GLU 139 mg/dL High 74-106 [facility] Comment on above: Result Comment: FANG GEMENT OF PATIENT CARE PER NURSING PROTOCOL Performed By: #### L 501.080 ####[facility] [address] [place], [address] CBC W/Diff, Automatedon 11-2 -2023 Absolute Lymph 2.01 X10 3/uL Normal 0.83-4.51 [facility] Comment on above: Performed By: #### L 100.0100, L500.2500 ####[facility] [address] [place], [address] Absolute Neut 11.4 X10 3/uL High 2.0-7.7 [facility] Comment on above: Performed By: #### L 100.0100, L500.2500 ####[facility] [address] [place], [address] Basophils/100 WBC (Bld) 0.2 % Normal 0-1 [facility] Comment on above: Performed By: #### L 100.0100, L500.2500 ####[facility] [address] [place], [address] Eosinophils/100 WBC (Bld) 0.9 % Normal 0-5 [facility] Comment on above: Performed By: #### L 100.0100, L500.2500 ####[facility] [address] [place], [address] Erythrocyte distribution width (RBC) [Ratio] 14.8 % High 11.6-14.6 [facility] Comment on above: Performed By: #### L 100.0100, L500.2500 ####[facility] [address] [place], [address] Hematocrit (Bld) [Volume fraction] 32.2 % Low 40-54 [facility] Comment on above: Performed By: #### L 100.0100, L500.2500 ####[facility] [address] [place], [address] Hemoglobin (Bld) [Mass/Vol] 9.7 g/dL Low 13.0-16.5 [facility] Comment on above: Performed By: #### L 100.0100, L500.2500 ####[facility] [address] [place], [address] IG% 0.500 Normal 0.0-0.9 [facility] Comment on above: Result Comment: IG% - Immature Granulocytes (promyelocytes, myelocytes andmetamyelocytes) > 1% indicates that a LEFT SHIFT is Present. Performed By: #### L 100.0100, L500.2500 ####[facility] [address] [place], [address] Lymphocytes/100 WBC (Bld) 13.4 % Low 19-41 [facility] Comment on above: Performed By: #### L 100.0100, L500.2500 ####[facility] [address] [place], [address] MCH (RBC) [Entitic mass] 29.6 pg Normal 27.0-32.0 [facility] Comment on above: Performed By: #### L 100.0100, L500.2500 ####[facility] [address] [place], [address] MCHC (RBC) [Mass/Vol] 30.1 g/dL Low 32-36 [facility] Comment on above: Performed By: #### L 100.0100, L500.2500 ####[facility] [address] [place], [address] MCV (RBC) [Entitic vol] 98.2 fL High 80-94 [facility] Comment on above: Performed By: #### L 100.0100, L500.2500 ####[facility] [address] [place], [address] Monocytes/100 WBC (Bld) 9.3 % Normal 0-10 [facility] Comment on above: Performed By: #### L 100.0100, L500.2500 ####[facility] [address] [place], [address] Neutrophils/100 WBC (Bld) 75.7 % High 47-70 [facility] Comment on above: Performed By: #### L 100.0100, L500.2500 ####[facility] [address] [place], [address] Nucleated RBC (Bld) [#/Vol] 0 10*3/uL Normal 0-5 [facility] Comment on above: Performed By: #### L 100.0100, L500.2500 ####[facility] [address] [place], [address] Platelet mean volume (Bld) [Entitic vol] 11.7 fL Normal 6.2-12.0 [facility] Comment on above: Performed By: #### L 100.0100, L500.2500 ####[facility] [address] [place], [address] Platelets (Bld) [#/Vol] 232 10*3/uL Normal 150-450 [facility] Comment on above: Performed By: #### L 100.0100, L500.2500 ####[facility] [address] [place], [address] RBC (Bld) [#/Vol] 3.28 10*6/uL Low 4.6-6.2 [facility] Comment on above: Performed By: #### L 100.0100, L500.2500 ####[facility] [address] [place], [address] RDW SD 53.6 fl High 35.1-43.9 [facility] Comment on above: Performed By: #### L 100.0100, L500.2500 ####[facility] [address] [place], [address] WBC (Bld) [#/Vol] 15.0 10*3/uL High 4.4-11.0 [facility] Comment on above: Performed By: #### L 100.0100, L500.2500 ####[facility] [address] [place], [address] 12 Lead EKGon 04-16-2024 12 Lead EKG Normal [facility] Basic Metabolic Profile (BMP )on 04-16-2024 BUN/CRE 12.0 RATIO Normal 10-20 [facility] Comment on above: Performed By: #### L 100.0100, L500.2500 ####[facility] [address] [place], [address] CA,Total 8.6 mg/dL Normal 8.5-10.1 [facility] Comment on above: Performed By: #### L 100.0100, L500.2500 ####[facility] [address] [place], [address] Chloride [Moles/Vol] 96 mmol/L Low 98-107 [facility] Comment on above: Performed By: #### L 100.0100, L500.2500 ####[facility] [address] [place], [address] CO2 [Moles/Vol] 28.0 mmol/L Normal 21.0-32.0 [facility] Comment on above: Performed By: #### L 100.0100, L500.2500 ####[facility] [address] [place], [address] Creatinine [Mass/Vol] 4.76 mg/dL High 0.70-1.30 [facility] Comment on above: Result Comment: The validity of the calculated GFR GFRAA in patients over70 years has not been determined. Clinical correlation isessential. Performed By: #### L 100.0100, L500.2500 ####[facility] [address] [place], [address] ECRCL 12.86 ml/min Normal [facility] Comment on above: Performed By: #### L 100.0100, L500.2500 ####[facility] [address] [place], [address] EST GFR - AA 15 mL/min Low >60 [facility] Comment on above: Result Comment: Afri can Mauritanian GFR Calc Performed By: #### L 100.0100, L500.2500 ####[facility] [address] [place], [address] GAP 9 Normal 5-15 [facility] Comment on above: Performed By: #### L 100.0100, L500.2500 ####[facility] [address] [place], [address] GFR/1.73 sq M.predicted among non-blacks MDRD (S/P/Bld) [Vol rate/Area] 12 mL/min/{1.73_m2} Low >60 [facility] Comment on above: Result Comment: Non- GFR Calc Performed By: #### L 100.0100, L500.2500 ####[facility] [address] [place], [address] Glucose [Mass/Vol] 148 mg/dL High 74-106 [facility] Comment on above: Result Comment: Fast ing Glucose result greater than or equal to 126 mg/dLsuggests DIABETES MELLITUS per A.D.A. criteria. Performed By: #### L 100.0100, L500.2500 ####[facility] [address] [place], [address] Potassium [Moles/Vol] 4.1 mmol/L Normal 3.5-5.1 [facility] Comment on above: Performed By: #### L 100.0100, L500.2500 ####[facility] [address] [place], [address] Sodium [Moles/Vol] 133 mmol/L Low 136-145 [facility] Comment on above: Performed By: #### L 100.0100, L500.2500 ####[facility] [address] [place], [address] Urea nitrogen [Mass/Vol] 57 mg/dL High 7-18 [facility] Comment on above: Performed By: #### L 100.0100, L500.2500 ####[facility] [address] [place], [address] Bedside Glucoseon 04-16-2024 FINGERSTICK GLU 273 mg/dL High 74-106 [facility] Comment on above: Result Comment: FANG GEMENT OF PATIENT CARE PER NURSING PROTOCOL Performed By: #### L 501.080 ####[facility] [address] [place], [address] FINGERSTICK GLU 266 mg/dL High 74-106 [facility] Comment on above: Result Comment: FANG GEMENT OF PATIENT CARE PER NURSING PROTOCOL Performed By: #### L 501.080 ####[facility] [address] [place], [address] FINGERSTICK GLU 142 mg/dL High 74-106 [facility] Comment on above: Result Comment: FANG GEMENT OF PATIENT CARE PER NURSING PROTOCOL Performed By: #### L 501.080 ####[facility] [address] [place], [address] CBC W/Diff, Automatedon - Absolute Lymph 1.44 X10 3/uL Normal 0.83-4.51 [facility] Comment on above: Performed By: #### L 100.0100, L500.2500 ####[facility] [address] [place], [address] Absolute Neut 10.4 X10 3/uL High 2.0-7.7 [facility] Comment on above: Performed By: #### L 100.0100, L500.2500 ####[facility] [address] [place], [address] Basophils/100 WBC (Bld) 0.2 % Normal 0-1 [facility] Comment on above: Performed By: #### L 100.0100, L500.2500 ####[facility] [address] [place], [address] Eosinophils/100 WBC (Bld) 0.5 % Normal 0-5 [facility] Comment on above: Performed By: #### L 100.0100, L500.2500 ####[facility] [address] [place], [address] Erythrocyte distribution width (RBC) [Ratio] 14.9 % High 11.6-14.6 [facility] Comment on above: Performed By: #### L 100.0100, L500.2500 ####[facility] [address] [place], [address] Hematocrit (Bld) [Volume fraction] 32.4 % Low 40-54 [facility] Comment on above: Performed By: #### L 100.0100, L500.2500 ####[facility] [address] [place], [address] Hemoglobin (Bld) [Mass/Vol] 10.0 g/dL Low 13.0-16.5 [facility] Comment on above: Performed By: #### L 100.0100, L500.2500 ####[facility] [address] [place], [address] IG% 0.400 Normal 0.0-0.9 [facility] Comment on above: Result Comment: IG% - Immature Granulocytes (promyelocytes, myelocytes andmetamyelocytes) > 1% indicates that a LEFT SHIFT is Present. Performed By: #### L 100.0100, L500.2500 ####[facility] [address] [place], [address] Lymphocytes/100 WBC (Bld) 10.9 % Low 19-41 [facility] Comment on above: Performed By: #### L 100.0100, L500.2500 ####[facility] [address] [place], [address] MCH (RBC) [Entitic mass] 29.9 pg Normal 27.0-32.0 [facility] Comment on above: Performed By: #### L 100.0100, L500.2500 ####[facility] [address] [place], [address] MCHC (RBC) [Mass/Vol] 30.9 g/dL Low 32-36 [facility] Comment on above: Performed By: #### L 100.0100, L500.2500 ####[facility] [address] [place], [address] MCV (RBC) [Entitic vol] 97.0 fL High 80-94 [facility] Comment on above: Performed By: #### L 100.0100, L500.2500 ####[facility] [address] [place], [address] Monocytes/100 WBC (Bld) 9.6 % Normal 0-10 [facility] Comment on above: Performed By: #### L 100.0100, L500.2500 ####[facility] [address] [place], [address] Neutrophils/100 WBC (Bld) 78.4 % High 47-70 [facility] Comment on above: Performed By: #### L 100.0100, L500.2500 ####[facility] [address] [place], [address] Nucleated RBC (Bld) [#/Vol] 0 10*3/uL Normal 0-5 [facility] Comment on above: Performed By: #### L 100.0100, L500.2500 ####[facility] [address] [place], [address] Platelet mean volume (Bld) [Entitic vol] 11.1 fL Normal 6.2-12.0 [facility] Comment on above: Performed By: #### L 100.0100, L500.2500 ####[facility] [address] [place], [address] Platelets (Bld) [#/Vol] 223 10*3/uL Normal 150-450 [facility] Comment on above: Performed By: #### L 100.0100, L500.2500 ####[facility] [address] [place], [address] RBC (Bld) [#/Vol] 3.34 10*6/uL Low 4.6-6.2 [facility] Comment on above: Performed By: #### L 100.0100, L500.2500 ####[facility] [address] [place], [address] RDW SD 52.6 fl High 35.1-43.9 [facility] Comment on above: Performed By: #### L 100.0100, L500.2500 ####[facility] [address] [place], [address] WBC (Bld) [#/Vol] 13.3 10*3/uL High 4.4-11.0 [facility] Comment on above: Performed By: #### L 100.0100, L500.2500 ####[facility] [address] [place], [address] Consultation - Infectious Dx on 04-16-2024 Consultation - Infectious Dx Normal [facility] Consultation - Nephrologyon 04-16-2024 Consultation - Nephrology Normal [facility] Consultation - Surgicalon Consultation - Surgical Normal [facility] Gram Stainon 04-16-2024 GS Gram Stain 2+ Gram positive cocci 2+ Red Blood Cells 2+ Gram variable yessy No Epithelial cells Normal [facility] Comment on above: Performed By: #### M 100.4001, M100.2000, M100.3000 ####[facility] [address] [place], [address] Hemoglobin A1con 04-16-2024 HbA1c (Bld) [Mass fraction] 9.0 % High 3.8-5.6 [facility] Comment on above: Result Comment: Norm al < 5.7 % Prediabetic 5.7 - 6.4 % Diabetic >or= 6.5 % Please note range changes. Performed By: #### L 501.9985 ####[facility] [address] [place], [address] Lower Ext/No Jt/w/oon 2023 Lower Ext/No Jt/w/o Normal [facility] Bedside Glucoseon 04-15-2024 FINGERSTICK GLU 262 mg/dL High 74-106 [facility] Comment on above: Result Comment: FANG GEMENT OF PATIENT CARE PER NURSING PROTOCOL Performed By: #### L 501.080 ####[facility] [address] [place], [address] FINGERSTICK GLU 188 mg/dL High 74-106 [facility] Comment on above: Result Comment: FANG GEMENT OF PATIENT CARE PER NURSING PROTOCOL Performed By: #### L 501.080 ####[facility] [address] [place], [address] FINGERSTICK GLU 114 mg/dL High 74-106 [facility] Comment on above: Result Comment: FANG GEMENT OF PATIENT CARE PER NURSING PROTOCOL Performed By: #### L 501.080 ####[facility] [address] [place], [address] FINGERSTICK GLU 117 mg/dL High 74-106 [facility] Comment on above: Result Comment: FANG VAZQUEZ OF PATIENT CARE PER NURSING PROTOCOL Performed By: #### L 501.080 ####[facility] [address] [place], [address] CBC W/Diff, Automatedon 11-2 Absolute Lymph 1.56 X10 3/uL Normal 0.83-4.51 [facility] Comment on above: Performed By: #### L 500.4050, L501.9520, L300.3900, L100.0100 ####[facility] [address] [place], [address] Absolute Neut 9.4 X10 3/uL High 2.0-7.7 [facility] Comment on above: Performed By: #### L 500.4050, L501.9520, L300.3900, L100.0100 ####[facility] [address] [place], [address] Basophils/100 WBC (Bld) 0.2 % Normal 0-1 [facility] Comment on above: Performed By: #### L 500.4050, L501.9520, L300.3900, L100.0100 ####[facility] [address] [place], [address] Eosinophils/100 WBC (Bld) 0.3 % Normal 0-5 [facility] Comment on above: Performed By: #### L 500.4050, L501.9520, L300.3900, L100.0100 ####[facility] [address] [place], [address] Erythrocyte distribution width (RBC) [Ratio] 15.0 % High 11.6-14.6 [facility] Comment on above: Performed By: #### L 500.4050, L501.9520, L300.3900, L100.0100 ####[facility] [address] [place], [address] Hematocrit (Bld) [Volume fraction] 31.9 % Low 40-54 [facility] Comment on above: Performed By: #### L 500.4050, L501.9520, L300.3900, L100.0100 ####[facility] [address] [place], [address] Hemoglobin (Bld) [Mass/Vol] 9.8 g/dL Low 13.0-16.5 [facility] Comment on above: Performed By: #### L 500.4050, L501.9520, L300.3900, L100.0100 ####[facility] [address] [place], [address] IG% 0.500 Normal 0.0-0.9 [facility] Comment on above: Result Comment: IG% - Immature Granulocytes (promyelocytes, myelocytes andmetamyelocytes) > 1% indicates that a LEFT SHIFT is Present. Performed By: #### L 500.4050, L501.9520, L300.3900, L100.0100 ####[facility] [address] [place], [address] Lymphocytes/100 WBC (Bld) 12.7 % Low 19-41 [facility] Comment on above: Performed By: #### L 500.4050, L501.9520, L300.3900, L100.0100 ####[facility] [address] [place], [address] MCH (RBC) [Entitic mass] 29.8 pg Normal 27.0-32.0 [facility] Comment on above: Performed By: #### L 500.4050, L501.9520, L300.3900, L100.0100 ####[facility] [address] [place], [address] MCHC (RBC) [Mass/Vol] 30.7 g/dL Low 32-36 [facility] Comment on above: Performed By: #### L 500.4050, L501.9520, L300.3900, L100.0100 ####[facility] [address] [place], [address] MCV (RBC) [Entitic vol] 97.0 fL High 80-94 [facility] Comment on above: Performed By: #### L 500.4050, L501.9520, L300.3900, L100.0100 ####[facility] [address] [place], [address] Monocytes/100 WBC (Bld) 9.6 % Normal 0-10 [facility] Comment on above: Performed By: #### L 500.4050, L501.9520, L300.3900, L100.0100 ####[facility] [address] [place], [address] Neutrophils/100 WBC (Bld) 76.7 % High 47-70 [facility] Comment on above: Performed By: #### L 500.4050, L501.9520, L300.3900, L100.0100 ####[facility] [address] [place], [address] Nucleated RBC (Bld) [#/Vol] 0 10*3/uL Normal 0-5 [facility] Comment on above: Performed By: #### L 500.4050, L501.9520, L300.3900, L100.0100 ####[facility] [address] [place], [address] Platelet mean volume (Bld) [Entitic vol] 11.1 fL Normal 6.2-12.0 [facility] Comment on above: Performed By: #### L 500.4050, L501.9520, L300.3900, L100.0100 ####[facility] [address] [place], [address] Platelets (Bld) [#/Vol] 238 10*3/uL Normal 150-450 [facility] Comment on above: Performed By: #### L 500.4050, L501.9520, L300.3900, L100.0100 ####[facility] [address] [place], [address] RBC (Bld) [#/Vol] 3.29 10*6/uL Low 4.6-6.2 [facility] Comment on above: Performed By: #### L 500.4050, L501.9520, L300.3900, L100.0100 ####[facility] [address] [place], [address] RDW SD 52.9 fl High 35.1-43.9 [facility] Comment on above: Performed By: #### L 500.4050, L501.9520, L300.3900, L100.0100 ####[facility] [address] [place], [address] WBC (Bld) [#/Vol] 12.2 10*3/uL High 4.4-11.0 [facility] Comment on above: Performed By: #### L 500.4050, L501.9520, L300.3900, L100.0100 ####[facility] [address] [place], [address] CRPon 04-15-2024 C-REACTIVE PROT 232.00 mg/L High 0.0-3.0 [facility] Comment on above: Order Comment: Comme nts: Add onto previous labs if possible Result Comment: C-Re active Protein (CRP) provides useful information for thediagnosis, therapy and monitoring of inflammatory processesand associated diseases. For the evaluation of Relative Riskfor Cardiovascular Disease, a High Sensitivity CRP (HSCRP)should be ordered. Performed By: #### L 501.6710, L101.9900 ####[facility] [address] [place], [address] Comprehensive Metabolic Prof ilon 04-15-2024 Albumin [Mass/Vol] 2.3 g/dL Low 3.2-5.0 [facility] Comment on above: Performed By: #### L 500.4050, L501.9520, L300.3900, L100.0100 ####[facility] [address] [place], [address] Albumin/Globulin [Mass ratio] 0.5 {ratio} Low 0.9-2.4 [facility] Comment on above: Performed By: #### L 500.4050, L501.9520, L300.3900, L100.0100 ####[facility] [address] [place], [address] ALK P 49 U/L Normal 45-117 [facility] Comment on above: Performed By: #### L 500.4050, L501.9520, L300.3900, L100.0100 ####[facility] [address] [place], [address] ALT [Catalytic activity/Vol] 13 U/L Low 16-61 [facility] Comment on above: Performed By: #### L 500.4050, L501.9520, L300.3900, L100.0100 ####[facility] [address] [place], [address] AST [Catalytic activity/Vol] 9 U/L Low 15-37 [facility] Comment on above: Performed By: #### L 500.4050, L501.9520, L300.3900, L100.0100 ####[facility] [address] [place], [address] Bilirubin [Mass/Vol] 0.50 mg/dL Normal 0.20-1.00 [facility] Comment on above: Result Comment: For patients on eltrombopag therapy, use of Dimension [place] TBIL is not recommended. Performed By: #### L 500.4050, L501.9520, L300.3900, L100.0100 ####[facility] [address] [place], [address] BUN/CRE 10.6 RATIO Normal 10-20 [facility] Comment on above: Performed By: #### L 500.4050, L501.9520, L300.3900, L100.0100 ####[facility] [address] [place], [address] CA,Total 8.4 mg/dL Low 8.5-10.1 [facility] Comment on above: Performed By: #### L 500.4050, L501.9520, L300.3900, L100.0100 ####[facility] [address] [place], [address] Chloride [Moles/Vol] 97 mmol/L Low 98-107 [facility] Comment on above: Performed By: #### L 500.4050, L501.9520, L300.3900, L100.0100 ####[facility] [address] [place], [address] CO2 [Moles/Vol] 28.0 mmol/L Normal 21.0-32.0 [facility] Comment on above: Performed By: #### L 500.4050, L501.9520, L300.3900, L100.0100 ####[facility] [address] [place], [address] Creatinine [Mass/Vol] 3.79 mg/dL High 0.70-1.30 [facility] Comment on above: Result Comment: The validity of the calculated GFR GFRAA in patients over70 years has not been determined. Clinical correlation isessential. Performed By: #### L 500.4050, L501.9520, L300.3900, L100.0100 ####[facility] [address] [place], [address] ECRCL 16.15 ml/min Normal [facility] Comment on above: Performed By: #### L 500.4050, L501.9520, L300.3900, L100.0100 ####[facility] [address] [place], [address] EST GFR - AA 20 mL/min Low >60 [facility] Comment on above: Result Comment: Afri can [place] GFR Calc Performed By: #### L 500.4050, L501.9520, L300.3900, L100.0100 ####[facility] [address] [place], [address] GAP 10 Normal 5-15 [facility] Comment on above: Performed By: #### L 500.4050, L501.9520, L300.3900, L100.0100 ####[facility] [address] [place], [address] GFR/1.73 sq M.predicted among non-blacks MDRD (S/P/Bld) [Vol rate/Area] 16 mL/min/{1.73_m2} Low >60 [facility] Comment on above: Result Comment: Non- GFR Calc Performed By: #### L 500.4050, L501.9520, L300.3900, L100.0100 ####[facility] [address] [place], [address] Globulin (S) [Mass/Vol] 4.7 g/dL High 2.2-4.2 [facility] Comment on above: Performed By: #### L 500.4050, L501.9520, L300.3900, L100.0100 ####[facility] [address] [place], [address] Glucose [Mass/Vol] 124 mg/dL High 74-106 [facility] Comment on above: Result Comment: Fast ing Glucose result from 100 to 125 mg/dLsuggests IMPAIRED HOMEOSTASIS per A.D.A. criteria. Performed By: #### L 500.4050, L501.9520, L300.3900, L100.0100 ####[facility] [address] [place], [address] Potassium [Moles/Vol] 3.8 mmol/L Normal 3.5-5.1 [facility] Comment on above: Performed By: #### L 500.4050, L501.9520, L300.3900, L100.0100 ####[facility] [address] [place], [address] Sodium [Moles/Vol] 135 mmol/L Low 136-145 [facility] Comment on above: Performed By: #### L 500.4050, L501.9520, L300.3900, L100.0100 ####[facility] [address] [place], [address] T PROT 7.0 g/dL Normal 6.4-8.2 [facility] Comment on above: Performed By: #### L 500.4050, L501.9520, L300.3900, L100.0100 ####[facility] [address] [place], [address] Urea nitrogen [Mass/Vol] 40 mg/dL High 7-18 [facility] Comment on above: Performed By: #### L 500.4050, L501.9520, L300.3900, L100.0100 ####[facility] [address] [place], [address] Erythrocyte Sed Rateon 04-15 SED RATE 68 mm/hr High 0-20 [facility] Comment on above: Order Comment: Comme nts: Add onto previous labs if possible Performed By: #### L 501.6710, L101.9900 ####[facility] [address] [place], [address] Gram Stainon 04-15-2024 GS Positive Normal [facility] Comment on above: Performed By: #### M 100.2000, M100.3000 ####[facility] [address] [place], [address] M8200.1075on 04-15-2024 M8200.1075 Pending MRSA PCR MRSA NEGATIVE STAPH. AUREUS PCR STAPH. AUREUS NEGATIVE Normal [facility] Comment on above: Performed By: #### M 8200.1075 ####[facility] [address] [place], [address] Prothrombin Time w/INRon INR Coag (PPP) [Relative time] 1.4 {INR} Normal [facility] Comment on above: Performed By: #### L 500.4050, L501.9520, L300.3900, L100.0100 ####[facility] [address] [place], [address] PT Coag (PPP) [Time] 16.7 s High 11.7-14.9 [facility] Comment on above: Performed By: #### L 500.4050, L501.9520, L300.3900, L100.0100 ####[facility] [address] [place], [address] Thyroid Stim Hormone (TSH)on 04-15-2024 TSH 0.665 uIU/mL Normal 0.358-3.740 [facility] Comment on above: Performed By: #### L 500.4050, L501.9520, L300.3900, L100.0100 ####[facility] [address] [place], [address] Ankle Brachial Indexon 04-14 Ankle Brachial Index Normal [facility] Bedside Glucoseon 04-14-2024 FINGERSTICK GLU 310 mg/dL High 74-106 [facility] Comment on above: Result Comment: FANG GEMENT OF PATIENT CARE PER NURSING PROTOCOL Performed By: #### L 501.080 ####[facility] [address] [place], [address] FINGERSTICK GLU 190 mg/dL High 74-106 [facility] Comment on above: Result Comment: FANG GEMENT OF PATIENT CARE PER NURSING PROTOCOL Performed By: #### L 501.080 ####[facility] [address] [place], [address] CBC W/Diff, Automatedon 03-24 Absolute Lymph 1.36 X10 3/uL Normal 0.83-4.51 [facility] Comment on above: Performed By: #### L 503.6005, L100.0100, L500.4050 ####[facility] [address] [place], [address] Absolute Neut 11.3 X10 3/uL High 2.0-7.7 [facility] Comment on above: Performed By: #### L 503.6005, L100.0100, L500.4050 ####[facility] [address] [place], [address] Basophils/100 WBC (Bld) 0.3 % Normal 0-1 [facility] Comment on above: Performed By: #### L 503.6005, L100.0100, L500.4050 ####[facility] [address] [place], [address] Eosinophils/100 WBC (Bld) 0.3 % Normal 0-5 [facility] Comment on above: Performed By: #### L 503.6005, L100.0100, L500.4050 ####[facility] [address] [place], [address] Erythrocyte distribution width (RBC) [Ratio] 15.1 % High 11.6-14.6 [facility] Comment on above: Performed By: #### L 503.6005, L100.0100, L500.4050 ####[facility] [address] [place], [address] Hematocrit (Bld) [Volume fraction] 35.3 % Low 40-54 [facility] Comment on above: Performed By: #### L 503.6005, L100.0100, L500.4050 ####[facility] [address] [place], [address] Hemoglobin (Bld) [Mass/Vol] 11.3 g/dL Low 13.0-16.5 [facility] Comment on above: Performed By: #### L 503.6005, L100.0100, L500.4050 ####[facility] [address] [place], [address] IG% 0.600 Normal 0.0-0.9 [facility] Comment on above: Result Comment: IG% - Immature Granulocytes (promyelocytes, myelocytes andmetamyelocytes) > 1% indicates that a LEFT SHIFT is Present. Performed By: #### L 503.6005, L100.0100, L500.4050 ####[facility] [address] [place], [address] Lymphocytes/100 WBC (Bld) 9.7 % Low 19-41 [facility] Comment on above: Performed By: #### L 503.6005, L100.0100, L500.4050 ####[facility] [address] [place], [address] MCH (RBC) [Entitic mass] 30.5 pg Normal 27.0-32.0 [facility] Comment on above: Performed By: #### L 503.6005, L100.0100, L500.4050 ####[facility] [address] [place], [address] MCHC (RBC) [Mass/Vol] 32.0 g/dL Normal 32-36 [facility] Comment on above: Performed By: #### L 503.6005, L100.0100, L500.4050 ####[facility] [address] [place], [address] MCV (RBC) [Entitic vol] 95.1 fL High 80-94 [facility] Comment on above: Performed By: #### L 503.6005, L100.0100, L500.4050 ####[facility] [address] [place], [address] Monocytes/100 WBC (Bld) 8.6 % Normal 0-10 [facility] Comment on above: Performed By: #### L 503.6005, L100.0100, L500.4050 ####[facility] [address] [place], [address] Neutrophils/100 WBC (Bld) 80.5 % High 47-70 [facility] Comment on above: Performed By: #### L 503.6005, L100.0100, L500.4050 ####[facility] [address] [place], [address] Nucleated RBC (Bld) [#/Vol] 0 10*3/uL Normal 0-5 [facility] Comment on above: Performed By: #### L 503.6005, L100.0100, L500.4050 ####[facility] [address] [place], [address] Platelet mean volume (Bld) [Entitic vol] 10.8 fL Normal 6.2-12.0 [facility] Comment on above: Performed By: #### L 503.6005, L100.0100, L500.4050 ####[facility] [address] [place], [address] Platelets (Bld) [#/Vol] 255 10*3/uL Normal 150-450 [facility] Comment on above: Performed By: #### L 503.6005, L100.0100, L500.4050 ####[facility] [address] [place], [address] RBC (Bld) [#/Vol] 3.71 10*6/uL Low 4.6-6.2 [facility] Comment on above: Performed By: #### L 503.6005, L100.0100, L500.4050 ####[facility] [address] [place], [address] RDW SD 52.1 fl High 35.1-43.9 [facility] Comment on above: Performed By: #### L 503.6005, L100.0100, L500.4050 ####[facility] [address] [place], [address] WBC (Bld) [#/Vol] 14.0 10*3/uL High 4.4-11.0 [facility] Comment on above: Performed By: #### L 503.6005, L100.0100, L500.4050 ####[facility] [address] [place], [address] CNOVon 04-14-2024 CNOV Office Visit (UCWSTR ) PERLA THOMPSON ([id number]) 1935 M Date Time Provider Department 04/14/24 10:15 AM [facility]DA [facility] During your visit today, we recorded the following information about you: Temperature Pulse Respiration Blood pressure 99.1 degrees 76/minute 16/minute 124/60 Yolanda Jain APRN.CNP 04/14/2024 10:18 AM Signed Family brings the patient for evaluation of a red swollen right foot and leg which has been ongoing for the last several weeks. On initial evaluation patient also has an open wound over the first MTP joint of the right foot. Based on patient's presentation, the level of erythema and swelling combined with open wound I am concerned for osteomyelitis versus severe cellulitis and recommended ER evaluation to which the family was agreeable. Patient is in no acute distress and family will self transport to [place] emergency department Allergies As of Date: 04/14/2024 Noted Allergy Reaction ACTOS (PIOGLITAZONE HCL) 10/04/2016 14 - Other: See Comments Comments: fatigue ATENOLOL 05/18/2010 8 - GI Upset Comments: 100 mg causes nausea JANUVIA (SITAGLIPTIN) 09/18/2013 14 - Other: See Comments Comments: Januvia 100mg dizziness, can tolerate 50mg OZEMPIC (SEMAGLUTIDE) 01/06/2024 8 - GI Upset Comments: Diarrhea ZOCOR (SIMVASTATIN) 01/02/2007 Comments: myalgias Date Reviewed: 04/14/2024 Reviewed by: Jordana Kramer MA - Fully Assessed Reason for Visit: Pain (foot) [760] Cmt: right x 2 weeks, red and swelling Primary Visit Diagnosis:Right foot infection [L08.9] Prescriptions as of 04/14/2024 - torsemide (DEMADEX) 100 mg tablet TAKE 1 TABLET BY MOUTH ON NON DIALYSIS DAYS - insulin glargine (LANTUS SOLOSTAR U-100 INSULIN) 100 unit/mL (3 mL) Inject 37 Units subcutaneously once daily. - flash glucose sensor (FREESTYLE GELACIO 2 SENSOR) kit 2 Each four times daily. - flash glucose scanning reader (FREESTYLE GELACIO 14 DAY READER) 1 Units four times daily. - blood sugar diagnostic (BLOOD GLUCOSE TEST) test strip Test blood sugar(s) 2 times daily. Dx: Type 2 DM -E11.65 Insulin: No - blood sugar diagnostic (ACCU-CHEK LISA PLUS TEST STRP) test strip Test blood sugar(s) 2x daily. Dx E11.65. Insulin: No. - mecobalamin (B12 ACTIVE ORAL) Take 1 tablet by mouth once daily. Every other day - Insulin Perryman, Disposable, (BD ULTRA-FINE SHAHEEN PEN NEEDLE) 32 gauge x " Use one needle for each dose. 1x/day. - lancets (FREESTYLE LANCETS) 28 gauge 1 Each once daily. - blood sugar diagnostic (BLOOD GLUCOSE TEST) test strip Test blood sugar(s) 2x daily. Dx: E11.65. Insulin: No - COMPOUNDED PRESCRIPTION True Metrix Test Strips. Test blood sugar(s) 2x daily. Dx: E11.65. Insulin: No - COMPOUNDED PRESCRIPTION True Metrix Lancets. Test blood sugar(s) 2x daily. Dx: E11.65. Insulin: No - cholecalciferol (VITAMIN D3) 5,000 unit tab Take 5,000 Units by mouth once daily. - Blood-Glucose Meter [facility] Dispense 1 kit. Dx: E11.65 - Aspirin 81 mg tab Take 1 tablet by mouth once daily. Take with food. - COMPOUNDED PRESCRIPTION Crill Oil, Take 1 tablet daily. 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] 09/26/2014 02/28/2020 Noncompliance of patient with dietary regimen [*07/07/2015 Type 2 diabetes mellitus with mild nonprolifera* 6 04/26/2016 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/26/2016 Chronic kidney disease (CKD), stage III (modera* 06/03/2022 LBBB (left bundle branch block) [I44.7] Mobitz (type) I (Wenckebach's) atrioventricular* Lower extremity edema [R60.0] 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* Chronic diastolic heart failure (HCC) [I50.32] 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 For the evaluation of Relative Riskfor Cardiovascular Disease, a High Sensitivity CRP (HSCRP)should be ordered. Performed By: #### L 101.9900, L501.6710 ####[facility] [address] [place], [address] Comprehensive Metabolic Prof ilon 04-14-2024 Albumin [Mass/Vol] 2.7 g/dL Low 3.2-5.0 [facility] Comment on above: Performed By: #### L 503.6005, L100.0100, L500.4050 ####[facility] [address] [place], [address] Albumin/Globulin [Mass ratio] 0.5 {ratio} Low 0.9-2.4 [facility] Comment on above: Performed By: #### L 503.6005, L100.0100, L500.4050 ####[facility] [address] [place], [address] ALK P 62 U/L Normal 45-117 [facility] Comment on above: Performed By: #### L 503.6005, L100.0100, L500.4050 ####[facility] [address] [place], [address] ALT [Catalytic activity/Vol] 11 U/L Low 16-61 [facility] Comment on above: Performed By: #### L 503.6005, L100.0100, L500.4050 ####[facility] [address] [place], [address] AST [Catalytic activity/Vol] 15 U/L Normal 15-37 [facility] Comment on above: Performed By: #### L 503.6005, L100.0100, L500.4050 ####[facility] [address] [place], [address] Bilirubin [Mass/Vol] 0.50 mg/dL Normal 0.20-1.00 [facility] Comment on above: Result Comment: For patients on eltrombopag therapy, use of Dimension [place] TBIL is not recommended. Performed By: #### L 503.6005, L100.0100, L500.4050 ####[facility] [address] [place], [address] BUN/CRE 9.5 RATIO Low 10-20 [facility] Comment on above: Performed By: #### L 503.6005, L100.0100, L500.4050 ####[facility] [address] [place], [address] CA,Total 8.6 mg/dL Normal 8.5-10.1 [facility] Comment on above: Performed By: #### L 503.6005, L100.0100, L500.4050 ####[facility] [address] [place], [address] Chloride [Moles/Vol] 96 mmol/L Low 98-107 [facility] Comment on above: Performed By: #### L 503.6005, L100.0100, L500.4050 ####[facility] [address] [place], [address] CO2 [Moles/Vol] 32.0 mmol/L Normal 21.0-32.0 [facility] Comment on above: Performed By: #### L 503.6005, L100.0100, L500.4050 ####[facility] [address] [place], [address] Creatinine [Mass/Vol] 2.84 mg/dL High 0.70-1.30 [facility] Comment on above: Result Comment: The validity of the calculated GFR GFRAA in patients over70 years has not been determined. Clinical correlation isessential. Performed By: #### L 503.6005, L100.0100, L500.4050 ####[facility] [address] [place], [address] ECRCL 21.22 ml/min Normal [facility] Comment on above: Performed By: #### L 503.6005, L100.0100, L500.4050 ####[facility] [address] [place], [address] EST GFR - AA 27 mL/min Low >60 [facility] Comment on above: Result Comment: Afri can [place]ian GFR Calc Performed By: #### L 503.6005, L100.0100, L500.4050 ####[facility] [address] [place], [address] GAP 8 Normal 5-15 [facility] Comment on above: Performed By: #### L 503.6005, L100.0100, L500.4050 ####[facility] [address] [place], [address] GFR/1.73 sq M.predicted among non-blacks MDRD (S/P/Bld) [Vol rate/Area] 23 mL/min/{1.73_m2} Low >60 [facility] Comment on above: Result Comment: Non- GFR Calc Performed By: #### L 503.6005, L100.0100, L500.4050 ####[facility] [address] [place], [address] Globulin (S) [Mass/Vol] 5.3 g/dL High 2.2-4.2 [facility] Comment on above: Performed By: #### L 503.6005, L100.0100, L500.4050 ####[facility] [address] [place], [address] Glucose [Mass/Vol] 130 mg/dL High 74-106 [facility] Comment on above: Result Comment: Fast ing Glucose result greater than or equal to 126 mg/dLsuggests DIABETES MELLITUS per A.D.A. criteria. Performed By: #### L 503.6005, L100.0100, L500.4050 ####[facility] [address] [place], [address] Potassium [Moles/Vol] 3.7 mmol/L Normal 3.5-5.1 [facility] Comment on above: Performed By: #### L 503.6005, L100.0100, L500.4050 ####[facility] [address] [place], [address] Sodium [Moles/Vol] 136 mmol/L Normal 136-145 [facility] Comment on above: Performed By: #### L 503.6005, L100.0100, L500.4050 ####[facility] [address] [place], [address] T PROT 8.0 g/dL Normal 6.4-8.2 [facility] Comment on above: Performed By: #### L 503.6005, L100.0100, L500.4050 ####[facility] [address] [place], [address] Urea nitrogen [Mass/Vol] 27 mg/dL High 7-18 [facility] Comment on above: Performed By: #### L 503.6005, L100.0100, L500.4050 ####[facility] [address] [place], [address] Emergency Department Summary on 04-14-2024 Emergency Department Summary Normal [facility] Erythrocyte Sed Rateon 04-14 SED RATE 87 mm/hr High 0-20 [facility] Comment on above: Performed By: #### L 101.9900, L501.6717 ####[facility] [address] [place], [address] Foot min 3 Viewson 4 Foot min 3 Views Normal [facility] H AND P Exam - Hospitaliston 04-14-2024 H&P Exam - Hospitalist Normal [facility] Lactic Acidon 04-14-2024 Lactate [Moles/Vol] 1.6 mmol/L Normal 0.4-1.9 [facility] Comment on above: Order Comment: Y Performed By: #### L 503.6005, L100.0100, L500.4058 ####[facility] [address] [place], [address] [facility] LUZN [facility] (HENNY) PERLA THOMPSON ([id number]) 1935 M Date Time Provider Department 04/13/24 LAUREN ARZOLA During your visit today, we recorded the following information about you: Mayela Hopson LPN 04/13/2024 2:33 PM Signed Patient daughter Norah calling fathers blood sugar average is 306. She said he is not very active, his activity is going to dialysis 3 times a week. His Lantus is 33 units daily. Please advise Lauren Arzola APRN.MANAGER OUTREACH 04/13/2024 2:37 PM Signed Increase Lantus to 37 units daily. Would he be willing to talk with our clinical pharmacist to help with managing his diabetic medications as it doesn't seem we are getting much better. Lauren Arzola APRN.Mayela Dominiuqe LPN 04/13/2024 2:49 PM Signed Phoned daughter Norah and went over notes from Lauren Xielogerick SMELTER LINER with understanding. Norah said father would not like to see pharmacist, she will try the increase in Lantus. Lauren Arzola APRN.CNP 04/16/2024 7:08 AM Addendum Update me Tuesday with readings. KIKE Gamez Beth, LPN 04/16/2024 9:09 AM Signed Phoned Norah and went over notes below. She said her father is in [facility] with a fott infection right now. She will update you when she can. Lauren Arzola APRN.CNP 04/16/2024 9:19 AM Signed Okay. Possible why his sugars have bee elevated as well. Lauren Arzola APRN.Mayela Dominique LPN 04/17/2024 12:52 PM Signed noted. Allergies As of Date: 04/13/2024 Noted Allergy Reaction ACTOS (PIOGLITAZONE HCL) 10/04/2016 14 - Other: See Comments Comments: fatigue ATENOLOL 05/18/2010 8 - GI Upset Comments: 100 mg causes nausea JANUVIA (SITAGLIPTIN) 09/18/2013 14 - Other: See Comments Comments: Januvia 100mg dizziness, can tolerate 50mg OZEMPIC (SEMAGLUTIDE) 01/06/2024 8 - GI Upset Comments: Diarrhea ZOCOR (SIMVASTATIN) 01/02/2007 Comments: myalgias Date Reviewed: 03/28/2024 Reviewed by: Deborah Bedoya LPN - Fully Assessed Reason for Visit: blood sugar reading average [Other] Visit Diagnosis: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, without long-term current use of insulin (HCC) [E11.3313] Order(s):insulin glargine (LANTUS SOLOSTAR U-100 INSULIN) 100 unit/mL (3 mL)Inject 37 Units subcutaneously once daily.Disp: 24 mLRfl: 1 Prescriptions as of 04/17/2024 - torsemide (DEMADEX) 100 mg tablet TAKE 1 TABLET BY MOUTH ON NON DIALYSIS DAYS - insulin glargine (LANTUS SOLOSTAR U-100 INSULIN) 100 unit/mL (3 mL) Inject 37 Units subcutaneously once daily. - flash glucose sensor (FREESTYLE GELACIO 2 SENSOR) kit 2 Each four times daily. - flash glucose scanning reader (FREESTYLE GELACIO 14 DAY READER) 1 Units four times daily. - blood sugar diagnostic (BLOOD GLUCOSE TEST) test strip Test blood sugar(s) 2 times daily. Dx: Type 2 DM -E11.65 Insulin: No - blood sugar diagnostic (ACCU-CHEK LISA PLUS TEST STRP) test strip Test blood sugar(s) 2x daily. Dx E11.65. Insulin: No. - mecobalamin (B12 ACTIVE ORAL) Take 1 tablet by mouth once daily. Every other day - Insulin Perryman, Disposable, (BD ULTRA-FINE SHAHEEN PEN NEEDLE) 32 gauge x 5/32" Use one needle for each dose. 1x/day. - lancets (FREESTYLE LANCETS) 28 gauge 1 Each once daily. - blood sugar diagnostic (BLOOD GLUCOSE TEST) test strip Test blood sugar(s) 2x daily. Dx: E11.65. Insulin: No - COMPOUNDED PRESCRIPTION True Metrix Test Strips. Test blood sugar(s) 2x daily. Dx: E11.65. Insulin: No - COMPOUNDED PRESCRIPTION True Metrix Lancets. Test blood sugar(s) 2x daily. Dx: E11.65. Insulin: No - cholecalciferol (VITAMIN D3) 5,000 unit tab Take 5,000 Units by mouth once daily. - Blood-Glucose Meter [facility] Dispense 1 kit. Dx: E11.65 - Aspirin 81 mg tab Take 1 tablet by mouth once daily. Take with food. - COMPOUNDED PRESCRIPTION Crill Oil, Take 1 tablet daily. 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 [facility] NICA [facility] (HENNY) PERLA THOMPSON ([id number]) 1935 M Date Time Provider Department 04/05/24 LAUREN ARZOLA During your visit today, we recorded the following information about you: Mayela Hopson LPN 04/05/2024 11:23 AM Signed Patient daughter Norah calling to give SMELTER LINER her father blood sugar average since increased Lantus insulin to 29 units. She is not sure what date he increased his dose of Lantus, and if he is taking it daily. She said he is getting more forgetful. He usually takes his Lantus dose late afternoon. His freestyle Gelacio reader gives an average blood sugar at 327. She said it does not give her dates with separate readings. Lauren Arzola APRN.MANAGER OUTREACH 04/06/2024 6:49 AM Signed Increase Lantus to 33 units. I would recommend office appointment to discuss increasing forgetfulness. Would he be interested in talking to clinical pharmacist to see if she can help get better control of blood sugars? Update me in 5 days with blood sugar reading or average, sooner if getting lows. Lauren Xielogar, SURGICAL ASSISTANT.Deborah Paul LPN 04/06/2024 8:19 AM Signed Patients daughter Norah telephoned, she is medical POA and will be bringing in paperwork. Providers recommendations below given. Voices understanding. Deborah Bedoya LPN Allergies As of Date: 04/05/2024 Noted Allergy Reaction ACTOS (PIOGLITAZONE HCL) 10/04/2016 14 - Other: See Comments Comments: fatigue ATENOLOL 05/18/2010 8 - GI Upset Comments: 100 mg causes nausea JANUVIA (SITAGLIPTIN) 09/18/2013 14 - Other: See Comments Comments: Januvia 100mg dizziness, can tolerate 50mg OZEMPIC (SEMAGLUTIDE) 01/06/2024 8 - GI Upset Comments: Diarrhea ZOCOR (SIMVASTATIN) 01/02/2007 Comments: myalgias Date Reviewed: 03/28/2024 Reviewed by: Deborah Bedoya LPN - Fully Assessed Reason for Visit: blood sugar average [Other] Visit Diagnosis: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, without long-term current use of insulin (HCC) [E11.3313] Order(s):insulin glargine (LANTUS SOLOSTAR U-100 INSULIN) 100 unit/mL (3 mL)Inject 33 Units subcutaneously once daily.Disp: 24 mLRfl: 1 Prescriptions as of 04/06/2024 - insulin glargine (LANTUS SOLOSTAR U-100 INSULIN) 100 unit/mL (3 mL) Inject 33 Units subcutaneously once daily. - flash glucose sensor (FREESTYLE GELACIO 2 SENSOR) kit 2 Each four times daily. - flash glucose scanning reader (FREESTYLE GELACIO 14 DAY READER) 1 Units four times daily. - blood sugar diagnostic (BLOOD GLUCOSE TEST) test strip Test blood sugar(s) 2 times daily. Dx: Type 2 DM -E11.65 Insulin: No - blood sugar diagnostic (ACCU-CHEK LISA PLUS TEST STRP) test strip Test blood sugar(s) 2x daily. Dx E11.65. Insulin: No. - mecobalamin (B12 ACTIVE ORAL) Take 1 tablet by mouth once daily. Every other day - Insulin Perryman, Disposable, (BD ULTRA-FINE SHAHEEN PEN NEEDLE) 32 gauge x " Use one needle for each dose. 1x/day. - lancets (FREESTYLE LANCETS) 28 gauge 1 Each once daily. - blood sugar diagnostic (BLOOD GLUCOSE TEST) test strip Test blood sugar(s) 2x daily. Dx: E11.65. Insulin: No - COMPOUNDED PRESCRIPTION True Metrix Test Strips. Test blood sugar(s) 2x daily. Dx: E11.65. Insulin: No - COMPOUNDED PRESCRIPTION True Metrix Lancets. Test blood sugar(s) 2x daily. Dx: E11.65. Insulin: No - cholecalciferol (VITAMIN D3) 5,000 unit tab Take 5,000 Units by mouth once daily. - Blood-Glucose Meter [facility] Dispense 1 kit. Dx: E11.65 - Aspirin 81 mg tab Take 1 tablet by mouth once daily. Take with food. - COMPOUNDED PRESCRIPTION Crill Oil, Take 1 tablet daily. 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] 09/26/2014 02/28/2020 Noncompliance of patient with dietary regimen [*07/07/2015 Type 2 diabetes mellitus with mild nonprolifera* 6 04/26/2016 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/26/2016 Chronic kidney disease (CKD), stage III (modera* 06/03/2022 LBBB (left bundle branch block) [I44.7] Mobitz (type) I (Wenckebach's) atrioventricular* Lower extremity edema [R60.0] 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* Chronic diastolic heart failure ([facility]) [I50.32] 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 Normal [facility] CNOVon 03-28-2024 CNOV Office Visit (FAMPWS ) PERLA THOMPSON ([id number]) 1935 M Date Time Provider Department 03/28/24 1:00 PM LAUREN ARZOLA During your visit today, we recorded the following information about you: Pulse Respiration Blood pressure Weight 47/minute 18/minute 118/48 99.2 kg Lauren Arzola APRN.LUZ 03/28/2024 1:22 PM Signed 03/28/2024 Patient presents with: Fluid retention : and increased blood sugars, with sugars over 300s Has dialysis 3x week; sees nephrology monthly and saw him yesterday at dialysis, dr ordered him a diuretic but no call from pharmacy yet SUBJECTIVE: This is a 88 year old, accompanied by daughter, that is here today for Above Complaints. Reports increased blood sugars. Checks blood sugars daily 200-300. Has CGM unsure of what the average is. Denies visual changes, polyuria or polydipsia. Daughter concerned about hand grinder giving him a diuretic She reports he was at dialysis yesterday and they told him they were calling medication due to excess fluids. She is not sure what medication it is PAST MEDICAL HISTORY Diagnosis Date Chronic diastolic heart failure (HCC) Dr. Bacon ESRD (end stage renal disease) on dialysis ([facility]) Thai Moreno, Tiburcio Glaucoma Dr Jimenez LBBB (left bundle branch block) Dr. 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 Jimenez Type II or unspecified type diabetes mellitus without mention of complication, not stated as uncontrolled Unspecified essential hypertension ALLERGIES Actos [Pioglitazone Hcl], Atenolol, Januvia [Sitagliptin], Ozempic [Semaglutide], and Zocor [Simvastatin] MEDICATIONS Current Outpatient Medications Medication Sig flash glucose sensor (JoGuruSTYLE GELACIO 2 SENSOR) kit 2 Each four times daily. insulin glargine (LANTUS SOLOSTAR U-100 INSULIN) 100 unit/mL (3 mL) Inject 25 Units subcutaneously once daily. flash glucose scanning reader (JoGuruSTYLE GELACIO 14 DAY READER) 1 Units four times daily. blood sugar diagnostic (BLOOD GLUCOSE TEST) test strip Test blood sugar(s) 2 times daily. Dx: Type 2 DM -E11 Insulin: No blood sugar diagnostic (ACCU-CHEK LISA PLUS TEST STRP) test strip Test blood sugar(s) 2x daily. Dx E11.65. Insulin: No. mecobalamin (B12 ACTIVE ORAL) Take 1 tablet by mouth once daily. Every other day Insulin Perryman, Disposable, (BD ULTRA-FINE SHAHEEN PEN NEEDLE) 32 gauge x 5/32" Use one needle for each dose. 1x/day. lancets (FREESTYLE LANCETS) 28 gauge 1 Each once daily. blood sugar diagnostic (BLOOD GLUCOSE TEST) test strip Test blood sugar(s) 2x daily. Dx: E11.65. Insulin: No COMPOUNDED PRESCRIPTION True Metrix Test Strips. Test blood sugar(s) 2x daily. Dx: E11.65. Insulin: No COMPOUNDED PRESCRIPTION True Metrix Lancets. Test blood sugar(s) 2x daily. Dx: E11.65. Insulin: No cholecalciferol (VITAMIN D3) 5,000 unit tab Take 5,000 Units by mouth once daily. Blood-Glucose Meter [facility] Dispense 1 kit. Dx: E11.65 Aspirin 81 mg tab Take 1 tablet by mouth once daily. Take with food. COMPOUNDED PRESCRIPTION Crill Oil, Take 1 tablet daily. COMPOUNDED PRESCRIPTION robin msm take two in morning No current facility-administered medications for this visit. Medications and allergies reviewed by this provider. SOCIAL HISTORY Social History Tobacco Use Smoking status: Former Types: Cigars Smokeless tobacco: Never Vaping Use Vaping status: Never Used Substance Use Topics Alcohol use: Yes Comment: rarely Drug use: No REVIEW OF SYSTEMS All other reviewed and negative other than HPI. OBJECTIVE: BP (!) 118/48 Pulse (!) 47 Resp 18 Wt 99.2 kg (218 lb 11.1 oz) SpO2 98% BMI 34.25 kg/m? . Vital signs reviewed by this provider. APPEARANCE Well appearing, alert, in no acute distress, well-hydrated, well nourished. EYES PERRLA, conjunctiva and sclera normal. HEART RRR with normal S1 and S2, no murmurs, no gallops, no JVD appreciated LUNG clear to auscultation. No wheezes, rhonchi or rales SKIN Skin color, texture, turgor normal, no suspicious rashes or lesions to exposed skin Depression Screening Never done Anxiety Screening Never done Shingrix Vaccine(1 of 2) Never done RSV Vaccine(1 - 1-dose 75+ series) Never done Advance Directive Discussion Never done Hepatitis B Vaccine(9 of 9 - Risk Dialysis Recombivax 3-dose series) due on 07/06/2023 HbA1C due on 08/24/2023 Covid-19 Vaccine( season) due on 01/22/2024 Diabetic Foot Exam due on 02/22/2024 Dilated Retinal Exam due on 04/27/2024 LDL Cholesterol due on 05/25/2024 DTaP,Tdap,Td Vaccine(3 - Td or Tdap) due on 04/26/2028 Influenza Vaccine Completed Pn (more content not included)... Normal [facility] Comprehensive metabolic 2000 panelon 03-28-2024 Albumin [Mass/Vol] 3.2 g/dL Low 3.9-4.9 [facility] Comment on above: Order Comment: Speci men Type: BLOOD SPECIMENOrdering Facility: [facility] Address: [address] [place] [address] Performed By: #### 2 4323-8 ####[facility] LABCLIA [id number] [id number], [place] [address] [place] [Catalytic activity/Vol] 65 U/L Normal 38-113 [facility] Comment on above: Order Comment: Speci men Type: BLOOD SPECIMENOrdering Facility: [facility] Address: [address] [place] [address] Performed By: #### 2 4323-8 ####[facility] LABCLIA [id number] [place] [address] [place] OF CAR ALT [Catalytic activity/Vol] 10 U/L Normal 10-54 [facility] Comment on above: Order Comment: Speci men Type: BLOOD SPECIMENOrdering Facility: [facility] Address: [address] [place] [address] Performed By: #### 2 4323-8 ####[facility] LABCLIA [id number] [place] [address] [place] Anion gap [Moles/Vol] 12 mmol/L Normal 8-15 [facility] Comment on above: Order Comment: Speci men Type: BLOOD SPECIMENOrdering Facility: [facility] Address: [address] [place] [address] Performed By: #### 2 4323-8 ####[facility] LABCLIA [id number] [place] [address] [place] AST [Catalytic activity/Vol] 12 U/L Low 14-40 [facility] Comment on above: Order Comment: Speci men Type: BLOOD SPECIMENOrdering Facility: [facility] Address: [address] [place] [address] Performed By: #### 2 4323-8 ####[facility] LABCLIA [id number] [place] [address] [place] Bilirubin [Mass/Vol] 0.2 mg/dL Normal 0.2-1.3 [facility] Comment on above: Order Comment: Speci men Type: BLOOD SPECIMENOrdering Facility: [facility] Address: [address] [place] [address] Performed By: #### 2 4323-8 ####[facility] LABCLIA [id number] [place] [address] [place] Calcium [Mass/Vol] 8.9 mg/dL Normal 8.5-10.2 [facility] Comment on above: Order Comment: Speci men Type: BLOOD SPECIMENOrdering Facility: [facility] Address: [address] [place] [address] Performed By: #### 2 4323-8 ####[facility] LABCLIA [id number] [place] [address] [place] Chloride [Moles/Vol] 93 mmol/L Low 98-107 [facility] Comment on above: Order Comment: Speci men Type: BLOOD SPECIMENOrdering Facility: [facility] Address: [address] [place] [address] Performed By: #### 2 4323-8 ####[facility] LABCLIA [id number] [place] [address] [place] CO2 [Moles/Vol] 28 mmol/L Normal 22-30 [facility] Comment on above: Order Comment: Speci men Type: BLOOD SPECIMENOrdering Facility: [facility] Address: [address] [place] [address] Performed By: #### 2 4323-8 ####[facility] LABCLIA [id number] [place] [address] [place] Creatinine [Mass/Vol] 4.23 mg/dL High 0.73-1.22 [facility] Comment on above: Order Comment: Speci men Type: BLOOD SPECIMENOrdering Facility: [facility] Address: [address] [place] [address] Performed By: #### 2 4323-8 ####[facility] LABCLIA [id number] [place] [address] [place] Creatinine and Glomerular filtration rate.predicted panel (S/P/Bld) 13 mL/min/1.73m??? Low >=60 [facility] Comment on above: Order Comment: Lesvia aleman Type: BLOOD SPECIMENOrdering Facility: [facility] Address: [address] [place] [address] Result Comment: Tessa mated Glomerular Filtration Rate (eGFR) is calculated using the 2020 CKD-EPI creatinine equation. This equation utilizes serum creatinine, sex, and age as parameters. The creatinine assay has traceable calibration to isotope dilution-mass spectrometry. Refer to KDIGO guidelines for clinical interpretation. In patients with unstable renal function, e.g. those with acute kidney injury, the eGFR may not accurately reflect actual GFR. Performed By: #### 2 4323-8 ####[facility] LABIA [id number] [place] [address] [place] Glucose [Mass/Vol] 371 mg/dL High 74-99 [facility] Comment on above: Order Comment: Lesvia aleman Type: BLOOD SPECIMENOrdering Facility: [facility] Address: [address] [place] [address] Result Comment: The [place] Diabetes Association (ADA) provides guidance for cutoff values for fasting glucose and random glucose. The ADA defines fasting as no caloric intake for at least 8 hours. Fasting plasma glucose results between 100 to 125 mg/dL indicate increased risk for diabetes (prediabetes). Fasting plasma glucose results greater than or equal to 126 mg/dL meet the criteria for diagnosis of diabetes. In the absence of unequivocal hyperglycemia, results should be confirmed by repeat testing. In a patient with classic symptoms of hyperglycemia or hyperglycemic crisis, random plasma glucose results greater than or equal to 200 mg/dL meet the criteria for diagnosis of diabetes. Reference: Standards of Medical Care in Diabetes 2016, [place] Diabetes Association. Diabetes Care. 2016.39(Suppl 1). Performed By: #### 2 4323-8 ####[facility] LABIA [id number] [place] [address] [place] Potassium [Moles/Vol] 5.0 mmol/L Normal 3.7-5.1 [facility] Comment on above: Order Comment: Speci men Type: BLOOD SPECIMENOrdering Facility: [facility] Address: [address] [place] [address] Performed By: #### 2 4323-8 ####[facility] LABCLIA [id number] [place] [address] [place] Protein [Mass/Vol] 6.5 g/dL Normal 6.3-8.0 [facility] Comment on above: Order Comment: Speci men Type: BLOOD SPECIMENOrdering Facility: [facility] Address: [address] [place] [address] Performed By: #### 2 4323-8 ####[facility] LABCLIA [id number] [place] [address] [place] Sodium [Moles/Vol] 133 mmol/L Low 136-144 [facility] Comment on above: Order Comment: Speci men Type: BLOOD SPECIMENOrdering Facility: [facility] Address: [address] [place] [address] Performed By: #### 2 4323-8 ####[facility] LABCLIA [id number] [place] [address] [place] Urea nitrogen [Mass/Vol] 37 mg/dL High 9-24 [facility] Comment on above: Order Comment: Speci men Type: BLOOD SPECIMENOrdering Facility: [facility] Address: [address] [place] [address] Performed By: #### 2 4323-8 ####[facility] LABCLIA [id number] [place] [address] [place] HbA1c (Bld)on 03-28-2024 Average glucose Estimated from glycated hemoglobin (Bld) [Mass/Vol] 206 mg/dL Normal [facility] Comment on above: Order Comment: Speci men Type: BLOOD SPECIMENOrdering Facility: [facility] Address: [address] [place] [address] Result Comment: eAG: (Estimated average glucose) is a calculated value from HgbA1c and is livestock sales representative of the average blood glucose level in the last 2-3 month period. Performed By: #### 5 5454-3 ####[facility] LABIA [id number] [place] [address] [place] HbA1c (Bld) [Mass fraction] 8.8 % High 4.3-5.6 [facility] Comment on above: Order Comment: Speci men Type: BLOOD SPECIMENOrdering Facility: [facility] Address: [address] [place] [address] Result Comment: [place] Diabetes Association guidelines indicate that patients with HgbA1c in the range 5.7-6.4% are at increased risk for development of diabetes, and intervention by lifestyle modification may be beneficial. HgbA1c greater or equal to 6.5% is considered diagnostic of diabetes. Performed By: #### 5 5454-3 ####[facility] LABIA [id number] [address] [place] CNOVon 01-06-2024 CNOV Office Visit (HENNY ) PERLA THOMPSON ([id number]) 1935 M Date Time Provider Department 01/06/24 9:40 AM LAUREN ARZOLA During your visit today, we recorded the following information about you: Pulse Respiration Blood pressure Weight 58/minute 16/minute 128/58 95.6 kg Lauren Arzola APRN.MANAGER OUTREACH 01/06/2024 9:59 AM Signed 01/04/2024 Patient presents with: 4 month follow up SUBJECTIVE: This is a 88 year old, accompanied by daughter, that is here today for Above Complaints. Since last office visit hs been in good health without ER visits or hospitalizations. DIABETES MELLITUS: Since our last visit he denies excessive thirst or increased frequency of urination, chest pain or dyspnea , numbness, tingling or pain in extremities, new or unusual visual symptoms, low sugar/hypoglycemic reactions, weight loss/gain, lightheadedness/dizzin ess, and bowel changes/loose stools. Follows a diabetic diet most of the time. He is not compliant with medication(s) due to side effects of diarrhea. He reports checking his glucose on a four times a day schedule with sugars in the less than 200 range Patient's last HgA1C was Hemoglobin A1C (%) Date Value 05/25/2023 8.1 02/25/2021 7.2 06/14/2019 8.0 Hemoglobin A1C (POCT) (%) Date Value 12/06/2022 8.1 09/06/2022 8.4 ) Last Ophthalmology exam was within the past 12 months Stopped Ozempic in August due to gastric upset CKD: continues with dialysis three days a week. Follows with Dr. Faria Follows with [facility] cardiology for hx of Mobitz Type I and CHF with last appointment on 10/07/2023. No medication changes made at that time.Has scheduled follow-up for next year. Denies SOB, dyspnea, orthopnea, chest pain or palpitations. Wears compression hose for bilateral leg swelling- no worsening per his report PAST MEDICAL HISTORY No date: Chronic diastolic heart failure (HCC) Comment: Dr. 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 Jimenez No date: Type II or unspecified type diabetes mellitus without mention of complication, not stated as uncontrolled No date: Unspecified essential hypertension ALLERGIES Actos [Pioglitazone Hcl], Atenolol, Januvia [Sitagliptin], and Zocor [Simvastatin] MEDICATIONS Current Outpatient Medications Medication Sig insulin glargine (LANTUS SOLOSTAR U-100 INSULIN) 100 unit/mL (3 mL) Inject 25 Units subcutaneously once daily. flash glucose sensor (FREESTYLE GELACIO 2 SENSOR) kit 2 Each four times daily. semaglutide (OZEMPIC) 0.25 mg or 0.5 mg(2 mg/1.5 mL) pen Inject 0.5 mg subcutaneously one time a week. semaglutide (OZEMPIC) 0.25 mg or 0.5 mg(2 mg/1.5 mL) pen Inject 0.5 mg subcutaneously one time a week. flash glucose scanning reader (FREESTYLE GELACIO 14 DAY READER) 1 Units four times daily. blood sugar diagnostic (BLOOD GLUCOSE TEST) test strip Test blood sugar(s) 2 times daily. Dx: Type 2 DM -E11.65 Insulin: No blood sugar diagnostic (ACCU-CHEK LISA PLUS TEST STRP) test strip Test blood sugar(s) 2x daily. Dx E11.65. Insulin: No. mecobalamin (B12 ACTIVE ORAL) Take 1 tablet by mouth once daily. Every other day Insulin Perryman, Disposable, (BD ULTRA-FINE SHAHEEN PEN NEEDLE) 32 gauge x 5/32" Use one needle for each dose. 1x/day. lancets (FREESTYLE LANCETS) 28 gauge 1 Each once daily. blood sugar diagnostic (BLOOD GLUCOSE TEST) test strip Test blood sugar(s) 2x daily. Dx: E11.65. Insulin: No COMPOUNDED PRESCRIPTION True Metrix Test Strips. Test blood sugar(s) 2x daily. Dx: E11.65. Insulin: No COMPOUNDED PRESCRIPTION True Metrix Lancets. Test blood sugar(s) 2x daily. Dx: E11.65. Insulin: No cholecalciferol (VITAMIN D3) 5,000 unit tab Take 5,000 Units by mouth once daily. Blood-Glucose Meter [facility] Dispense 1 kit. Dx: E11.65 Aspirin 81 mg tab Take 1 tablet by mouth once daily. Take with food. COMPOUNDED PRESCRIPTION Crill Oil, Take 1 tablet daily. COMPOUNDED PRESCRIPTION robin msm take two in morning No current facility-administered medications for this visit. Medications and allergies reviewed by this provider. SOCIAL HISTORY Social History Tobacco Use Smoking status: Former Types: Cigars Smokeless tobacco: Never Vaping Use Vaping Use: Never used Substance Use Topics Alcohol use: Yes Comment: rarely Drug use: No REVIEW OF SYSTEMS All other reviewed and negative other than HPI. (more content not included)... [facility] Potassium [Moles/Vol] 3.7 mmol/L Normal 3.5-5.0 [facility] ([place]) Comment on above: Performed By: #### K OR #### [facility] [address] [place] [address] LABORATORYOrdered By: Miguelina Ramirez on 09-08-2023 Blood Glucose Testing Reason Routine (09/08/23 2:30 PM) [facility] Work Phone: Glucose [Mass/Vol] 111 mg/dL Normal 82 - 115 mg/dL [facility] Work Phone: LABORATORYOrdered By: Nelli Gar on 09-08-2023 Potassium [Moles/Vol] 3.7 mmol/L Normal 3.5 - 5.0 mEq/L Main [facility] LABORATORYOrdered By: Kailey Sanchez on 09-08-2023 Glucose [Mass/Vol] 147 mg/dL High 82 - 115 mg/dL [facility] Work Phone: CNPNon 09-06-2023 [place] Telephone (FAMPWS) PERLA THOMPSON ([id number]) 1935 M Date Time Provider Department 09/06/23 HUSAM YANJOAQUINA During your visit today, we recorded the following information about you: Mayela Hopson LPN 09/06/2023 4:59 PM Signed Patient daughter Norah calling father uses depends and is having irritated skin in groin and scrotal area. He has been using AAND D ointment. She can not bring him in for an appt had surgery yesterday. Asking for a rx to be sent to [facility] please. Please advise Husam Yan MD 09/06/2023 5:04 PM Signed Has the patient had any fever or chills with this rash? Any pus drainage or swelling? Pain or itching? What surgery did he have yesterday? Alanna Veloz LPN 09/06/2023 5:56 PM Signed Phoned patient's daughter and reviewed message with her. She stated that no fever or chills with rash. No pus, drainage or swelling. She stated he is painful as the skin is irritated/raw and starting to break open. Patient had cataract surgery and daughter reports it did not go well at all and patient has to return for additional surgeries. Husam Yan MD 09/06/2023 6:04 PM Signed It sounds like it may be fungal rash like jock itch. I will call in a antifungal cream to use 2 times daily for at least 2 weeks. If he is having pain and skin is breaking open, he may have a secondary bacterial infection. He would need to come in to our office or UC for appointment to confirm this and get an antibiotic. Alanna Veloz LPN 09/06/2023 6:42 PM Signed Phoned daughter and advised RX sent and advised if area doesn't resolve patient will need to be seen to address as may need alt treatment. She voiced understanding. Allergies As of Date: 09/06/2023 Noted Allergy Reaction ACTOS (PIOGLITAZONE HCL) 10/04/2016 14 - Other: See Comments Comments: fatigue ATENOLOL 05/18/2010 8 - GI Upset Comments: 100 mg causes nausea JANUVIA (SITAGLIPTIN) 09/18/2013 14 - Other: See Comments Comments: Januvia 100mg dizziness, can tolerate 50mg ZOCOR (SIMVASTATIN) 01/02/2007 Comments: myalgias Date Reviewed: 06/27/2023 Reviewed by: Catalina Ng, ISABEL - Fully Assessed Reason for Visit: Medication Request [138] Order(s):clotrimazole (LOTRIMIN) 1 % creamApply to affected area two times a day for 14 days.Disp: 28 gRfl: 1 Prescriptions as of 09/06/2023 - clotrimazole (LOTRIMIN) 1 % cream Apply to affected area two times a day for 14 days. - flash glucose sensor (FREESTYLE GELACIO 2 SENSOR) kit 2 Each four times daily. - semaglutide (OZEMPIC) 0.25 mg or 0.5 mg(2 mg/1.5 mL) pen Inject 0.5 mg subcutaneously one time a week. - semaglutide (OZEMPIC) 0.25 mg or 0.5 mg(2 mg/1.5 mL) pen Inject 0.5 mg subcutaneously one time a week. - insulin glargine (LANTUS SOLOSTAR U-100 INSULIN) 100 unit/mL (3 mL) Inject 25 Units subcutaneously once daily. - flash glucose scanning reader (FREESTYLE GELACIO 14 DAY READER) 1 Units four times daily. - blood sugar diagnostic (BLOOD GLUCOSE TEST) test strip Test blood sugar(s) 2 times daily. Dx: Type 2 DM -E11.65 Insulin: No - blood sugar diagnostic (ACCU-CHEK LISA PLUS TEST STRP) test strip Test blood sugar(s) 2x daily. Dx E11.65. Insulin: No. - mecobalamin (B12 ACTIVE ORAL) Take 1 tablet by mouth once daily. Every other day - Insulin Perryman, Disposable, (BD ULTRA-FINE SHAHEEN PEN NEEDLE) 32 gauge x 5/32" Use one needle for each dose. 1x/day. - lancets (FREESTYLE LANCETS) 28 gauge 1 Each once daily. - blood sugar diagnostic (BLOOD GLUCOSE TEST) test strip Test blood sugar(s) 2x daily. Dx: E11.65. Insulin: No - COMPOUNDED PRESCRIPTION True Metrix Test Strips. Test blood sugar(s) 2x daily. Dx: E11.65. Insulin: No - COMPOUNDED PRESCRIPTION True Metrix Lancets. Test blood sugar(s) 2x daily. Dx: E11.65. Insulin: No - cholecalciferol (VITAMIN D3) 5,000 unit tab Take 5,000 Units by mouth once daily. - Blood-Glucose Meter [facility] Dispense 1 kit. Dx: E11.65 - Aspirin 81 mg tab Take 1 tablet by mouth once daily. Take with food. - COMPOUNDED PRESCRIPTION Crill Oil, Take 1 tablet daily. 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 Normal [facility] CNPNon 08-08-2023 CNPN Telephone (FAMPWS) PERLA THOMPSON ([id number]) 1935 M Date Time Provider Department 08/08/23 HUSAM YAN During your visit today, we recorded the following information about you: Demetra Lopez 08/08/2023 8:32 AM Eric Bee is calling Husam Yan MD today to request Medication Problem (Freestyle gelacio 14 day sensor kit - patient's sensor reader is a gelacio 2 and the sensors ordered by our office are incompatible with his reader )please correct this and send the correct sensor kit to the patient as he is not able to use these sensors with his current CGM. Patient has been identified by name and birthdate. Duration of symptoms: N/A Person calling: self Call patient at: at home [phone] (home) [phone] (cell) Was an appointment scheduled: No Closing statement: Results or non-symptom based questions: Thank you for calling [facility], your call will be returned within the next business day. Husam Anderson MD 08/08/2023 9:37 AM Signed Rx sent. Deborah Bedoya LPN 08/08/2023 10:10 AM Signed Patient daughter Norah called and notified of rx sent. Deborah Bedoya LPN Allergies As of Date: 08/08/2023 Noted Allergy Reaction ACTOS (PIOGLITAZONE HCL) 10/04/2016 14 - Other: See Comments Comments: fatigue ATENOLOL 05/18/2010 8 - GI Upset Comments: 100 mg causes nausea JANUVIA (SITAGLIPTIN) 09/18/2013 14 - Other: See Comments Comments: Januvia 100mg dizziness, can tolerate 50mg ZOCOR (SIMVASTATIN) 01/02/2007 Comments: myalgias Date Reviewed: 06/27/2023 Reviewed by: Catalina Ng RN - Fully Assessed Reason for Visit: Medication Problem [65] Cmt: Freestyle gelacio 14 day sensor kit - patient's sensor reader is a gelacio 2 and the sensors ordered by our office are incompatible with his reader Visit Diagnosis: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 edema, with long-term current use of insulin ([facility]) [E11.3213, Z79.4] Order(s):flash glucose sensor (FREESTYLE GELACIO 2 SENSOR) kit2 Each four times daily.Disp: 6 KitRfl: 1 Prescriptions as of 08/08/2023 - flash glucose sensor (FREESTYLE GELACIO 2 SENSOR) kit 2 Each four times daily. - semaglutide (OZEMPIC) 0.25 mg or 0.5 mg(2 mg/1.5 mL) pen Inject 0.5 mg subcutaneously one time a week. - semaglutide (OZEMPIC) 0.25 mg or 0.5 mg(2 mg/1.5 mL) pen Inject 0.5 mg subcutaneously one time a week. - insulin glargine (LANTUS SOLOSTAR U-100 INSULIN) 100 unit/mL (3 mL) Inject 25 Units subcutaneously once daily. - flash glucose scanning reader (JoGuruSTYLE GELACIO 14 DAY READER) 1 Units four times daily. - semaglutide (OZEMPIC) 0.25 mg or 0.5 mg(2 mg/1.5 mL) pen Inject 0.5 mg subcutaneously one time a week. - blood sugar diagnostic (BLOOD GLUCOSE TEST) test strip Test blood sugar(s) 2 times daily. Dx: Type 2 DM -E11.65 Insulin: No - blood sugar diagnostic (ACCU-CHEK LISA PLUS TEST STRP) test strip Test blood sugar(s) 2x daily. Dx E11.65. Insulin: No. - mecobalamin (B12 ACTIVE ORAL) Take 1 tablet by mouth once daily. Every other day - Insulin Perryman, Disposable, (BD ULTRA-FINE SHAHEEN PEN NEEDLE) 32 gauge x " Use one needle for each dose. 1x/day. - lancets (FREESTYLE LANCETS) 28 gauge 1 Each once daily. - blood sugar diagnostic (BLOOD GLUCOSE TEST) test strip Test blood sugar(s) 2x daily. Dx: E11.65. Insulin: No - COMPOUNDED PRESCRIPTION True Metrix Test Strips. Test blood sugar(s) 2x daily. Dx: E11.65. Insulin: No - COMPOUNDED PRESCRIPTION True Metrix Lancets. Test blood sugar(s) 2x daily. Dx: E11.65. Insulin: No - cholecalciferol (VITAMIN D3) 5,000 unit tab Take 5,000 Units by mouth once daily. - Blood-Glucose Meter [facility] Dispense 1 kit. Dx: E11.65 - Aspirin 81 mg tab Take 1 tablet by mouth once daily. Take with food. - COMPOUNDED PRESCRIPTION Crill Oil, Take 1 tablet daily. 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 Normal [facility] HEMOGLOBIN A1C (POC)on 12-06 HbA1c (Bld) [Mass fraction] 8.1 % Abnormal 4.2 - 5.6 % [facility] HEMOGLOBIN A1C (POC)on 09-06 HbA1c (Bld) [Mass fraction] 8.4 % Abnormal 4.2 - 5.6 % [facility] Comprehensive metabolic 2000 panelon 03-06-2022 Albumin [Mass/Vol] 3.9 g/dL 3.9 - 4.9 g/dL [facility] ALP [Catalytic activity/Vol] 56 U/L 38 - 113 U/L [facility] ALT [Catalytic activity/Vol] 17 U/L 10 - 54 U/L [facility] Anion gap [Moles/Vol] 13 mmol/L 9 - 18 mmol/L [facility] AST [Catalytic activity/Vol] 13 U/L Low 14 - 40 U/L [facility] Bilirubin [Mass/Vol] 0.4 mg/dL 0.2 - 1 .3 mg/dL [facility] Calcium [Mass/Vol] 9.1 mg/dL 8.5 - 10. 2 mg/dL [facility] Chloride [Moles/Vol] 95 mmol/L Low 97 - 10 5 mmol/L [facility] CO2 [Moles/Vol] 30 mmol/L 22 - 30 mmol/L [facility] Creatinine [Mass/Vol] 4.13 mg/dL High 0.73 - 1.22 mg/dL [facility] Estimated Glomerular Filtration Rate 14 mL/min/1.73m Low >=60 mL/min/1.73 m [facility] Glucose [Mass/Vol] 239 mg/dL High 74 - 99 mg/dL [facility] Potassium [Moles/Vol] 4.9 mmol/L 3.7 - 5.1 mmol/L [facility] Protein [Mass/Vol] 7.2 g/dL 6.3 - 8.0 g/dL [facility] Sodium [Moles/Vol] 138 mmol/L 136 - 144 mmol/L [facility] Urea nitrogen [Mass/Vol] 49 mg/dL High 9 - 24 mg/dL [facility] LIPID PANEL, NONFASTINGon Cholesterol [Mass/Vol] 146 mg/dL <200 mg/dL [facility] HDL Cholesterol, Nonfasting 46 mg/dL >39 mg/dL [facility] LDL Cholesterol, Nonfasting 89 mg/dL <100 mg/dL [facility] LDL/HDL Ratio, Nonfasting 1.93 mg/dL <2.54 mg/dL [facility] Non HDL Cholesterol, Nonfasting 100 mg/dL <130 mg/dL [facility] Total Chol/HDL Ratio, Nonfasting 3.17 mg/dL <5.10 mg/dL [facility] Triglycerides, Nonfasting 55 mg/dL <150 mg/dL [facility] VLDL Cholesterol, Nonfasting 11 mg/dL <30 mg/dL [facility] HbA1c (Bld)on 03-05-2022 Average glucose Estimated from glycated hemoglobin (Bld) [Mass/Vol] 209 mg/dL [facility] HbA1c (Bld) [Mass fraction] 8.9 % High 4.3 - 5.6 % [facility] Basophil percentageon 2021 Chloride [Moles/Vol] 103 mmol/L 98-107 [facility] Work Phone: Glucose [Mass/Vol] 263 mg/dL 74-106 [facility] Work Phone: Comment on above: Glucose result great er than or equal to 200 mg/dLsuggests DIABETES MELLITUS per A.D.A. criteria. Potassium [Moles/Vol] 4.3 mmol/L 3.5-5.1 [facility] Work [facility]: Sodium [Moles/Vol] 138 mmol/L 136-145 [facility] Work Phone: WBC (Bld) [#/Vol] 8.1 10*3/uL 4.4-11.0 [facility] Work Phone: [phone] Blood erythrocytes count (nu mber/volume)on 11-06-2021 RBC (Bld) [#/Vol] 3.75 10*6/uL 4.6-6.2 [facility] Work Phone: [phone] Blood hemoglobin measurement (mass/volume)on 11-06-2021 Hemoglobin (Bld) [Mass/Vol] 11.4 g/dL 13.0-16.5 [facility] Work Phone: [phone] Blood platelet mean volumeon 11-06-2021 Platelet mean volume (Bld) [Entitic vol] 11.2 fL 6.2-12.0 [facility] Work Phone: [phone] Determination of erythrocyte mean corpuscular volume (MCV)on 11-06-2021 MCV (RBC) [Entitic vol] 94.9 fL 80-94 [facility] Work Phone: [phone] Hematocrit Auto (Bld) [Volum e fraction]on 11-06-2021 Hematocrit (Bld) [Volume fraction] 35.6 % 40-54 [facility] Work Phone: Laboratory - Chemistry and C hemistry - challengeon 11-06-2021 CO2 [Moles/Vol] 30.0 mmol/L 21.0-32.0 [facility] Work Phone: [phone] Urea nitrogen/Creatinine [Mass ratio] 12.6 mg/mg 10-20 [facility] Work Phone: [phone] Laboratory - Hematology and Cell countson 11-06-2021 Erythrocyte distribution width (RBC) [Entitic vol] 43.0 fL 35.1-43.9 [facility] Work Phone: [phone] Erythrocyte distribution width (RBC) [Ratio] 12.4 % 11.6-14.6 [facility] Work Phone: [phone] MCH (RBC) [Entitic mass] 30.4 pg 27.0-32.0 [facility] Work Phone: [phone] MCHC Auto (RBC) [Mass/Vol]on 11-06-2021 MCHC (RBC) [Mass/Vol] 32.0 g/dL 32-36 [facility] Work Phone: No Panel Informationon 11-06 Estimated Creatinine Clearance Calc 12.37 ml/min [facility] Work Phone: Estimated GFR (MDRD) Amer 17 mL/min >60 [facility] Work Phone: Comment on above: GFR Calc Estimated GFR (MDRD) Non-Af Amer 14 mL/min >60 [facility] Work Phone: Comment on above: Non- GFR Calc Platelets bldon 11-06-2021 Platelets (Bld) [#/Vol] 160 10*3/uL 150-450 [facility] Work Phone: Serum or plasma calcium lilli urement (mass/volume)on 11-06-2021 Calcium [Mass/Vol] 9.0 mg/dL 8.5-10.1 [facility] Work Phone: Serum or plasma creatinine m easurement (mass/volume)on 11-06-2021 Creatinine [Mass/Vol] 4.30 mg/dL 0.70-1.30 [facility] Work Phone: Comment on above: The validity of the calculated GFR & GFRAA in patients over 70 years has not been determined. Clinical correlation is essential. Serum or plasma urea nitroge n measurement (mass/volume)on 11-06-2021 Urea nitrogen [Mass/Vol] 54 mg/dL 7-18 [facility] Work Phone: Thin prep Papanicolaou smear with manual screeningon 11-06-2021 Thin prep Papanicolaou smear with manual screening 5 5-15 [facility] Work Phone: XR Foot - bilateral AP and L ateral and obliqueon 03-04-2021 IMPRESSION: No acute bony finding. 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 Has no pain in feet and no inj TECHNIQUE: Images: XR FOOT 3V AP/LAT/OBL ODALYS Comparison: None. RESULT: Findings: Nonweight-bearing views of each foot were obtained. No fracture, bony destruction, or subluxation. Joint spaces are unremarkable. Bilateral small calcaneal plantar enthesophytes. There is bilateral vascular calcification. 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 Has no pain in feet and no inj TECHNIQUE: Images: XR FOOT 3V AP/LAT/OBL ODALYS Comparison: None. RESULT: Findings: Nonweight-bearing views of each foot were obtained. No fracture, bony destruction, or subluxation. Joint spaces are unremarkable. Bilateral small calcaneal plantar enthesophytes. There is bilateral vascular calcification. No findings suggestive of pes planus on these nonweightbearing views IMPRESSION IMPRESSION: No acute bony finding. Plantar spurs Parboiler: PSCB Transcribe Date/Time: Mar 04 2021 12:13P Dictated by : FERNANDO JANE MD This examination was interpreted and the report reviewed and electronically signed by: FERNANDO JANE MD on Mar 04 2021 12:15PM EST [facility] Radiology Study observation (narrative) [facility] XR Foot - bilateral AP and L ateral and obliqueOrdered By: Cc Provider on 03-04-2021 [facility] Office Visiton 10-27-2016 Documentation of current medications (procedure) Done Invalid Interpretation Code [employer] Work Phone: Fall risk assessment No Invalid Interpretation Code [employer] Work Phone: Protein mass conc Done [employer] Work Phone: Replaced Document: Eileen LORENZO Observationson 10-27-2016 EKG QRS axis -23 deg [employer] Work Phone: electrocardiogram interpretation Possible atrial fibrillation - Nonspecific T-abnormality. ABNORMAL Invalid Interpretation Code [employer] Work Phone: GE use only - for [employer] import when terms are not otherwise specified 431 ms Invalid Interpretation Code [facility] Work Phone: Interpretation Possible atrial fibrillation - Nonspecific T-abnormality. ABNORMAL [facility] Work Phone: P Teague 1 deg [employer] Work Phone: P wave axis, electrocardiogram 1 deg Invalid Interpretation Code [employer] Work Phone: AK Interval 0 ms [employer] Work Phone: AK interval, electrocardiogram 0 ms Invalid Interpretation Code [employer] Work Phone: Pulse (Heart Rate) 69 /min Invalid Interpretation Code [employer] Work Phone: QRS axis, electrocardiogram -23 deg Invalid Interpretation Code [employer] Work Phone: QRS Duration 114 ms [employer] Work Phone: QRS duration, electrocardiogram 114 ms Invalid Interpretation Code [employer] Work Phone: QT Interval new path ms [employer] Work Phone: QT interval, electrocardiogram new path ms Invalid Interpretation Code [employer] Work Phone: QTc Liriano 431 ms [employer] Work Phone: T Teague 90 deg [employer] Work Phone: T wave axis, electrocardiogram 90 deg Invalid Interpretation Code [employer] Work Phone: Clinical Lists Update: Prelo peer counselor 10-26-2016 Tobacco smoking status NHIS Never smoker [facility] Work Phone: [phone] Tobacco use CPHS Never smoker Invalid Interpretation Code [facility] Work Phone: [phone] Clinical Lists Update: 10-14-2016 Anion gap 14 mmol/L Invalid Interpretation Code [facility] Work Phone: [phone] Anion gap [Moles/Vol] 14 mmol/L [facility] Work Phone: [phone] Calcium 9.8 mg/dL Invalid Interpretation Code [facility] Work Phone: [phone] Chloride 97 mmol/L Invalid Interpretation Code [facility] Work Phone: [phone] CO2 25 mmol/L Invalid Interpretation Code [facility] Work Phone: [phone] CO2 (BldV) [Partial pressure] 25 mmol/L [facility] Work Phone: [phone] Creatinine 1.69 mg/dL High [facility] Work Phone: [phone] Glucose 264 mg/dL High [facility] Work Phone: [phone] Glucose [Mass/Vol] 264 mg/dL [facility] Work Phone: [phone] Potassium 4.5 mmol/L Invalid Interpretation Code [facility] Work Phone: [phone] Sodium 136 mmol/L Invalid Interpretation Code [facility] Work Phone: [phone] Thyroid stimulating hormone (TSH) 1.29 u[iU]/mL Invalid Interpretation Code [facility] Work Phone: [phone] Urea nitrogen 21 mg/dL Invalid Interpretation Code [facility] Work Phone: [phone] Clinical Lists Update: 08-27-2016 Cholesterol 216 mg/dL Invalid Interpretation Code [facility] Work Phone: [phone] HDL Cholesterol 46 mg/dL Invalid Interpretation Code [facility] Work Phone: [phone] LDL Cholesterol 129 mg/dL Invalid Interpretation Code [facility] Work Phone: [phone] Triglyceride 206 mg/dL Invalid Interpretation Code [facility] Work Phone: [phone] Vital Signs Date Time Vital Sign Value Performing Clinician Faci lity 10-17-2024 10:25-0400 Body temperature 98.6 [degF] Dr. Jean Yan MD Work Phone: 0(597)302-300694 [place] [address] 10-17-2024 10:25-0400 Diastolic blood pressure 72 mm[Hg] Dr. Jean Yan MD Work Phone: 6(902)017-697294 [place] [address] 10-17-2024 10:25-0400 Heart rate 56 /min Dr. Jean Yan MD Work Phone: 9(860)020-791294 [place] [address] 10-17-2024 10:25-0400 Respiratory rate 16 /min Dr. Jean Yan MD Work Phone: 8(214)164-649894 [place] [address] 10-17-2024 10:25-0400 SaO2% (BldA) [Mass fraction] 93 % Dr. Jean Yan MD Work Phone: 9(381)627-719994 [place] [address] 10-17-2024 10:25-0400 Systolic blood pressure 135 mm[Hg] Dr. Jean Yan MD Work Phone: 6(027)582-052094 [place] [address] 10-03-2024 09:08-0400 Body temperature 98 [degF] Dr. Jean Yan MD Work Phone: 8(985)119-256694 [place] [address] 10-03-2024 09:08-0400 Diastolic blood pressure 54 mm[Hg] Dr. Jean Yan MD Work Phone: 9(510)209-247794 [place] [address] 10-03-2024 09:08-0400 Heart rate 48 /min Dr. Jean Yan MD Work Phone: 7(865)169-143194 [place] [address] 10-03-2024 09:08-0400 Respiratory rate 14 /min Dr. Jean Yan MD Work Phone: 2(233)738-230294 [place] [address] 10-03-2024 09:08-0400 SaO2% (BldA) [Mass fraction] 94 % Dr. Jean Yan MD Work Phone: 9(199)899-556894 [place] [address] 10-03-2024 09:08-0400 Systolic blood pressure 132 mm[Hg] Dr. Jean Yan MD Work Phone: 4(403)529-813894 [place] [address] 09-24-2024 10:09-0400 Body mass index (BMI) [Ratio] 31.9 kg/m2 Dr. Jean Yan MD Work Phone: 4(956)067-746994 [place] [address] 09-24-2024 10:09-0400 Body temperature 96 [degF] Dr. Jean Yan MD Work Phone: 2(460)318-143194 [place] [address] 09-24-2024 10:09-0400 Diastolic blood pressure 40 mm[Hg] Dr. Jean Yan MD Work Phone: 4(615)363-522494 [place] [address] 09-24-2024 10:09-0400 Heart rate 44 /min Dr. Jean Yan MD Work Phone: 4(616)983-182794 [place] [address] 09-24-2024 10:09-0400 Respiratory rate 16 /min Dr. Jean Yan MD Work Phone: 1(845)133-306194 [place] [address] 09-24-2024 10:09-0400 Systolic blood pressure 121 mm[Hg] Dr. Jean Yan MD Work Phone: 5(285)557-378694 [place] [address] 09-20-2024 00:41-0400 Body weight 92.[address] Jean Yan MD Work Phone: 0(223)723-473294 [place] [address] 09-04-2024 12:16-0400 Body mass index (BMI) [Ratio] 29.9 kg/m2 Dr. Jean Yan MD Work Phone: 2(696)730-318494 [place] [address] 09-04-2024 12:16-0400 Body temperature 97.2 [degF] Dr. Jean Yan MD Work Phone: 5(254)859-900394 [place] [address] 09-04-2024 12:16-0400 Body weight 86.[address] Jean Yan MD Work Phone: 2(604)470-091594 [place] [address] 09-04-2024 12:16-0400 Diastolic blood pressure 59 mm[Hg] Dr. Jean Yan MD Work Phone: 3(674)536-688194 [place] [address] 09-04-2024 12:16-0400 Heart rate 53 /min Dr. Jean Yan MD Work Phone: 9(048)098-192394 [place] [address] 09-04-2024 12:16-0400 Respiratory rate 14 /min Dr. Jean Yan MD Work Phone: 7(119)618-399794 [place] [address] 09-04-2024 12:16-0400 SaO2% (BldA) [Mass fraction] 96 % Dr. Jean Yan MD Work Phone: 6(649)618-829794 [place] [address] 09-04-2024 12:16-0400 Systolic blood pressure 108 mm[Hg] Dr. Jean Yan MD Work Phone: 1(777)509-211594 [place] [address] 09-03-2024 14:19-0400 Body height 170.[address] Jean Yan MD Work Phone: 3(388)505-172094 [place] [address] 08-30-2024 21:37-0400 Inhaled oxygen flow rate 2 L/min Dr. Jean Yan MD Work Phone: 8(004)677-465094 [place] [address] 08-27-2024 08:54-0400 Body mass index (BMI) [Ratio] 31.9 kg/m2 Dr. Jean Yan MD Work Phone: 4(329)955-638794 [place] [address] 08-27-2024 08:54-0400 Diastolic blood pressure 61 mm[Hg] Dr. Jean Yan MD Work Phone: 4(033)298-557894 [place] [address] 08-27-2024 08:54-0400 Heart rate 66 /min Dr. Jean Yan MD Work Phone: 1(129)772-907594 [place] [address] 08-27-2024 08:54-0400 Respiratory rate 16 /min Dr. Jean Yan MD Work Phone: 5(038)732-087694 [place] [address] 08-27-2024 08:54-0400 Systolic blood pressure 100 mm[Hg] Dr. Jean Yan MD Work Phone: 5(367)822-358194 [place] [address] 08-21-2024 00:56-0400 Body temperature 97.4 [degF] Dr. Jean Yan MD Work Phone: 3(129)609-009094 [place] [address] 08-21-2024 00:56-0400 Body weight 92.[address] Jean Yan MD Work Phone: 7(695)574-288194 [place] [address] 08-20-2024 10:36-0400 Body mass index (BMI) [Ratio] 31.9 kg/m2 Dr. Jean Yan MD Work Phone: 7(918)973-730894 [place] [address] 08-20-2024 10:36-0400 Body temperature 97.4 [degF] Dr. Jean Yan MD Work Phone: 0(464)526-179594 [place] [address] 08-20-2024 10:36-0400 Diastolic blood pressure 39 mm[Hg] Dr. Jean Yan MD Work Phone: 3(305)672-448294 [place] [address] 08-20-2024 10:36-0400 Heart rate 42 /min Dr. Jean Yan MD Work Phone: 6(883)669-408194 [place] [address] 08-20-2024 10:36-0400 Respiratory rate 16 /min Dr. Jean Yan MD Work Phone: 7(625)288-066894 [place] [address] 08-20-2024 10:36-0400 Systolic blood pressure 123 mm[Hg] Dr. Jean Yan MD Work Phone: 1(656)199-729394 [place] [address] 08-01-2024 19:00-0400 Diastolic blood pressure 46 mm[Hg] Dr. Jean Yan MD Work Phone: 3(361)333-589994 [place] [address] 08-01-2024 19:00-0400 Heart rate 47 /min Dr. Jean Yan MD Work Phone: 7(885)684-162194 [place] [address] 08-01-2024 19:00-0400 Respiratory rate 18 /min Dr. Jean Yan MD Work Phone: 8(171)422-903094 [place] [address] 08-01-2024 19:00-0400 SaO2% (BldA) [Mass fraction] 98 % Dr. Jean Yan MD Work Phone: 7(354)366-653794 [place] [address] 08-01-2024 19:00-0400 Systolic blood pressure 113 mm[Hg] Dr. Jean Yan MD Work Phone: 9(062)431-645894 [place] [address] 08-01-2024 15:00-0400 Body temperature 98.1 [degF] Dr. Jean Yan MD Work Phone: 3(910)319-300094 [place] [address] 07-21-2024 02:32-0500 Body weight 92.[address] Jean Yan MD Work Phone: 2(614)913-597894 [place] [address] 07-20-2024 20:26-0500 Body temperature 98.1 [degF] Dr. Jean Yan MD Work Phone: 6(845)487-022294 [place] [address] 07-20-2024 20:26-0500 Diastolic blood pressure 47 mm[Hg] Dr. Jean Yan MD Work Phone: 5(287)158-496294 [place] [address] 07-20-2024 20:26-0500 Heart rate 56 /min Dr. Jean Yan MD Work Phone: 9(918)187-865894 [place] [address] 07-20-2024 20:26-0500 Respiratory rate 18 /min Dr. Jean Yan MD Work Phone: 0(761)021-960194 [place] [address] 07-20-2024 20:26-0500 SaO2% (BldA) [Mass fraction] 97 % Dr. Jean Yan MD Work Phone: 9(725)616-185194 [place] [address] 07-20-2024 20:26-0500 Systolic blood pressure 143 mm[Hg] Dr. Jean Yan MD Work Phone: 7(944)568-654594 [place] [address] 07-20-2024 05:46-0500 Body mass index (BMI) [Ratio] 31.8 kg/m2 Dr. Jean Yan MD Work Phone: 3(062)463-504294 [place] [address] 07-20-2024 05:46-0500 Body weight 92.[address] Jean Yan MD Work Phone: 8(545)872-496994 [place] [address] 07-16-2024 15:18-0500 Inhaled oxygen flow rate 2 L/min Dr. Jean Yan MD Work Phone: 3(789)013-201394 [place] [address] 07-11-2024 10:27-0500 Body mass index (BMI) [Ratio] 31.9 kg/m2 Dr. Jean Yan MD Work Phone: 0(599)827-541594 [place] [address] 07-11-2024 10:27-0500 Body temperature 96.7 [degF] Dr. Jean Yan MD Work Phone: 5(213)174-055594 [place] [address] 07-11-2024 10:27-0500 Diastolic blood pressure 45 mm[Hg] Dr. Jean Yan MD Work Phone: 6(320)561-225294 [place] [address] 07-11-2024 10:27-0500 Heart rate 60 /min Dr. Jean Yan MD Work Phone: 1(350)366-014994 [place] [address] 07-11-2024 10:27-0500 Respiratory rate 18 /min Dr. Jean Yan MD Work Phone: 7(697)481-148294 [place] [address] 07-11-2024 10:27-0500 Systolic blood pressure 119 mm[Hg] Dr. Jean Yan MD Work Phone: 4(191)319-599994 [place] [address] 07-07-2024 22:04-0500 Body temperature 97.8 [degF] Dr. Jean Yan MD Work Phone: 0(904)040-780994 [place] [address] 07-07-2024 22:04-0500 Diastolic blood pressure 61 mm[Hg] Dr. Jean Yan MD Work Phone: 6(263)181-127494 [place] [address] 07-07-2024 22:04-0500 Heart rate 74 /min Dr. Jean Yan MD Work Phone: 5(655)328-225094 [place] [address] 07-07-2024 22:04-0500 Respiratory rate 19 /min Dr. Jean Yan MD Work Phone: 6(881)790-752994 [place] [address] 07-07-2024 22:04-0500 SaO2% (BldA) [Mass fraction] 94 % Dr. Jean Yan MD Work Phone: 9(961)554-065494 [place] [address] 07-07-2024 22:04-0500 Systolic blood pressure 119 mm[Hg] Dr. Jean Yan MD Work Phone: 2(490)819-386594 [place] [address] 07-07-2024 17:35-0500 Body mass index (BMI) [Ratio] 33.7 kg/m2 Dr. Jean Yan MD Work Phone: 6(605)035-539694 [place] [address] 07-07-2024 17:35-0500 Body weight 97.[address] Jean Yan MD Work Phone: 2(724)753-354194 [place] [address] 07-03-2024 17:24-0500 Body temperature 97.8 [degF] Dr. Jean Yan MD Work Phone: 6(220)511-309494 [place] [address] 07-03-2024 17:24-0500 Diastolic blood pressure 43 mm[Hg] Dr. Jean Yan MD Work Phone: 7(006)432-688494 [place] [address] 07-03-2024 17:24-0500 Heart rate 59 /min Dr. Jean Yan MD Work Phone: 3(116)649-896194 [place] [address] 07-03-2024 17:24-0500 Respiratory rate 16 /min Dr. Jean Yan MD Work Phone: 3(665)793-874194 [place] [address] 07-03-2024 17:24-0500 SaO2% (BldA) [Mass fraction] 98 % Dr. Jean Yan MD Work Phone: 4(801)608-485294 [place] [address] 07-03-2024 17:24-0500 Systolic blood pressure 109 mm[Hg] Dr. Jean Yan MD Work Phone: 3(064)333-775994 [place] [address] 07-03-2024 12:45-0500 Body mass index (BMI) [Ratio] 37.7 kg/m2 Dr. Jean Yan MD Work Phone: 8(532)791-973194 [place] [address] 07-03-2024 12:45-0500 Body weight 109.[address] Jean Yan MD Work Phone: 0(633)535-980294 [place] [address] 07-02-2024 20:15-0500 Body temperature 98 [degF] Dr. Jean Yan MD Work Phone: 7(337)752-381394 [place] [address] 07-02-2024 20:15-0500 Diastolic blood pressure 47 mm[Hg] Dr. Jean Yan MD Work Phone: 2(410)312-508794 [place] [address] 07-02-2024 20:15-0500 Heart rate 56 /min Dr. Jean Yan MD Work Phone: 0(364)142-505594 [place] [address] 07-02-2024 20:15-0500 Respiratory rate 18 /min Dr. Jean Yan MD Work Phone: 8(600)454-491994 [place] [address] 07-02-2024 20:15-0500 SaO2% (BldA) [Mass fraction] 97 % Dr. Jean Yan MD Work Phone: 0(661)585-129094 [place] [address] 07-02-2024 20:15-0500 Systolic blood pressure 115 mm[Hg] Dr. Jean Yan MD Work Phone: 7(965)614-458794 [place] [address] 07-02-2024 16:22-0500 Body mass index (BMI) [Ratio] 32.5 kg/m2 Dr. Jean Yan MD Work Phone: 4(999)182-051094 [place] [address] 07-02-2024 16:22-0500 Body weight 94.[address] Jean Yan MD Work Phone: 4(483)835-376694 [place] [address] 06-23-2024 02:27-0500 Body weight 92.[address] Jean Yan MD Work Phone: 8(785)690-555594 [place] [address] 06-20-2024 08:47-0500 Body temperature 97.5 [degF] Dr. Jean Yan MD Work Phone: 9(031)642-890594 [place] [address] 06-20-2024 08:47-0500 Body weight 96.[address] Jean Yan MD Work Phone: 7(056)859-308594 [place] [address] 06-20-2024 08:47-0500 Diastolic blood pressure 55 mm[Hg] Dr. Jean Yan MD Work Phone: 0(721)699-354894 [place] [address] 06-20-2024 08:47-0500 Heart rate 57 /min Dr. Jean Yan MD Work Phone: 5(657)595-499994 [place] [address] 06-20-2024 08:47-0500 Respiratory rate 14 /min Dr. Jean Yan MD Work Phone: 8(659)398-553894 [place] [address] 06-20-2024 08:47-0500 Systolic blood pressure 135 mm[Hg] Dr. Jean Yan MD Work Phone: 5(830)321-350494 [place] [address] 06-19-2024 11:43-0500 Body mass index (BMI) [Ratio] 31.9 kg/m2 Dr. Jean Yan MD Work Phone: 9(898)274-271494 [place] [address] 06-19-2024 11:43-0500 Respiratory rate 18 /min Dr. Jean Yan MD Work Phone: 5(676)195-531294 [place] [address] 06-12-2024 11:21-0500 Body temperature 96.7 [degF] Dr. Jean Yan MD Work Phone: 2(997)709-124994 [place] [address] 06-06-2024 10:00-0500 Body temperature 97 [degF] Dr. Jean Yan MD Work Phone: 5(797)091-565294 [place] [address] 06-06-2024 10:00-0500 Diastolic blood pressure 67 mm[Hg] Dr. Jean Yan MD Work Phone: 2(208)588-426294 [place] [address] 06-06-2024 10:00-0500 Heart rate 84 /min Dr. Jean Yan MD Work Phone: 1(333)338-016394 [place] [address] 06-06-2024 10:00-0500 Respiratory rate 16 /min Dr. Jean Yan MD Work Phone: 3(388)836-080294 [place] [address] 06-06-2024 10:00-0500 SaO2% (BldA) [Mass fraction] 95 % Dr. Jean Yan MD Work Phone: 2(262)159-280094 [place] [address] 06-06-2024 10:00-0500 Systolic blood pressure 101 mm[Hg] Dr. Jean Yan MD Work Phone: 3(292)360-932294 [place] [address] 06-06-2024 06:39-0500 Body mass index (BMI) [Ratio] 33.6 kg/m2 Dr. Jean Yan MD Work Phone: [facility] 06-06-2024 06:39-0500 Body weight 97.[address] Jean Yan MD Work Phone: [facility] 05-29-2024 10:49-0500 Diastolic blood pressure 31 mm[Hg] Dr. Jean Yan MD Work Phone: [facility] 05-29-2024 10:49-0500 Heart rate 58 /min Dr. Jean Yan MD Work Phone: [facility] 05-29-2024 10:49-0500 Systolic blood pressure 111 mm[Hg] Dr. Jean Yan MD Work Phone: [facility] 05-23-2024 00:51-0500 Body weight 92.[address] Jean Yan MD Work Phone: [facility] 04-14-2024 10:11-0500 Body temperature 99.1 [degF] Yolanda Moomaw SURGICAL ASSISTANT.MANAGER OUTREACH Work Phone: [facility] 04-14-2024 10:11-0500 Diastolic blood pressure 60 mm[Hg] Yolanda Moomaw SURGICAL ASSISTANT.MANAGER OUTREACH Work Phone: [facility] 04-14-2024 10:11-0500 Heart rate 76 /min Yolanda Moomaw SURGICAL ASSISTANT.MANAGER OUTREACH Work Phone: [facility] 04-14-2024 10:11-0500 Respiratory rate 16 /min Yolanda Moomaw SURGICAL ASSISTANT.MANAGER OUTREACH Work Phone: [facility] 04-14-2024 10:11-0500 SaO2% (BldA) [Mass fraction] 94 % Yolanda Moomaw SURGICAL ASSISTANT.MANAGER OUTREACH Work Phone: [facility] 04-14-2024 10:11-0500 Systolic blood pressure 124 mm[Hg] Yolanda Moomaw SURGICAL ASSISTANT.MANAGER OUTREACH Work Phone: [facility] 03-28-2024 12:54-0500 Body mass index (BMI) [Ratio] 34.25 kg/m2 Lauren Podlogar SURGICAL ASSISTANT.MANAGER OUTREACH Work Phone: [facility] 03-28-2024 12:54-0500 Body weight 99.2 kg Lauren Podlogar SURGICAL ASSISTANT.MANAGER OUTREACH Work Phone: [facility] 03-28-2024 12:54-0500 Diastolic blood pressure 48 mm[Hg] Lauren Podlogar SURGICAL ASSISTANT.MANAGER OUTREACH Work Phone: [facility] 03-28-2024 12:54-0500 Heart rate 47 /min Lauren Podlogar SURGICAL ASSISTANT.MANAGER OUTREACH Work Phone: [facility] 03-28-2024 12:54-0500 Respiratory rate 18 /min Lauren Podlogar SURGICAL ASSISTANT.MANAGER OUTREACH Work Phone: [facility] 03-28-2024 12:54-0500 SaO2% (BldA) [Mass fraction] 98 % Lauren Podlogar SURGICAL ASSISTANT.MANAGER OUTREACH Work Phone: [facility] 03-28-2024 12:54-0500 Systolic blood pressure 118 mm[Hg] Lauren Podlogar SURGICAL ASSISTANT.MANAGER OUTREACH Work Phone: [facility] 01-06-2024 09:36-0400 Body mass index (BMI) [Ratio] 33.01 kg/m2 Lauren Podlogar SURGICAL ASSISTANT.MANAGER OUTREACH Work Phone: [facility] 01-06-2024 09:36-0400 Body weight 95.6 kg Lauren Podlogar SURGICAL ASSISTANT.MANAGER OUTREACH Work Phone: [facility] 01-06-2024 09:36-0400 Diastolic blood pressure 58 mm[Hg] Lauren Podlogar SURGICAL ASSISTANT.MANAGER OUTREACH Work Phone: [facility] 01-06-2024 09:36-0400 Heart rate 58 /min Lauren Podlogar SURGICAL ASSISTANT.MANAGER OUTREACH Work Phone: [facility] 01-06-2024 09:36-0400 Respiratory rate 16 /min Lauren Podlogar SURGICAL ASSISTANT.MANAGER OUTREACH Work Phone: [facility] 01-06-2024 09:36-0400 SaO2% (BldA) [Mass fraction] 97 % Lauren Podlogar SURGICAL ASSISTANT.MANAGER OUTREACH Work Phone: [facility] 01-06-2024 09:36-0400 Systolic blood pressure 128 mm[Hg] Lauren Podlogar SURGICAL ASSISTANT.MANAGER OUTREACH Work Phone: [facility] 09-08-2023 14:30-0400 Body temperature 96.62 [degF] JEAN PIERRE ARREAGA MD [address] [place] [id number] 09-08-2023 14:30-0400 Diastolic Blood Pressure Non-Invasive 50 mm[Hg] JEAN PIERRE ARREAGA MD [address] [place] [id number] 09-08-2023 14:30-0400 Heart rate 53 /min JEAN PIERRE ARREAGA MD [address] [place] [id number] 09-08-2023 14:30-0400 Respiratory rate 16 /min JEAN PIERRE ARREAGA MD [address] [place] [id number] 09-08-2023 14:30-0400 Systolic Blood Pressure Non-Invasive 140 mm[Hg] JEAN PIERRE ARREAGA MD [address] [place] [address] 09-08-2023 14:13-0400 Body temperature 96.98 [degF] JEAN PIERRE ARREAGA MD [address] [place] [address] 09-08-2023 14:13-0400 Diastolic Blood Pressure Non-Invasive 49 mm[Hg] JEAN PIERRE ARREAGA MD [address] [place] [address] 09-08-2023 14:13-0400 Heart rate 51 /min JEAN PIERRE ARREAGA MD [address] [place] [address] 09-08-2023 14:13-0400 Mean blood pressure 74 mm[Hg] JEAN PIERRE ARREAGA MD [address] [place] [id number] 09-08-2023 14:13-0400 Respiratory rate 16 /min JEAN PIERRE ARREAGA MD [address] [place] [id number] 09-08-2023 14:13-0400 Systolic Blood Pressure Non-Invasive 134 mm[Hg] JEAN PIERRE ARREAGA MD [address] [place] [address] 09-08-2023 13:58-0400 Diastolic Blood Pressure Non-Invasive 49 mm[Hg] JEAN PIERRE ARREAGA MD [address] [place] [address] 09-08-2023 13:58-0400 Heart rate 45 /min JEAN PIERRE ARREAGA MD [address] [place] [address] 09-08-2023 13:58-0400 Mean blood pressure 74 mm[Hg] JEAN PIERRE ARREAGA MD [address] 09-08-2023 13:58-0400 Respiratory rate 16 /min JEAN PIERRE ARREAGA MD [address] 09-08-2023 13:58-0400 Systolic Blood Pressure Non-Invasive 130 mm[Hg] JEAN PIERRE ARREAGA MD [address] 09-08-2023 13:43-0400 Body temperature 96.98 [degF] JEAN PIERRE ARREAGA MD [address] [place] [address] 09-08-2023 13:43-0400 Heart rate 44 /min JEAN PIERRE ARREAGA MD [address] [place] [address] 09-08-2023 13:43-0400 Mean blood pressure 73 mm[Hg] JEAN PIERRE ARREAGA MD [address] 09-08-2023 13:35-0400 Body temperature 95.05 [degF] JEAN PIERRE ARREAGA MD [address] [place] [address] 09-08-2023 13:35-0400 Respiratory Rate - Anes 23 br/min JEAN PIERRE ARREAGA MD [address] [place] [id number] 09-08-2023 13:30-0400 Body temperature 94.95 [degF] JEAN PIERRE ARREAGA MD [facility] 09-08-2023 13:30-0400 Respiratory Rate - Anes 21 br/min JEAN PIERRE ARREAGA MD [facility] 09-08-2023 13:25-0400 Body temperature 94.75 [degF] JEAN PIERRE ARREAGA MD [facility] 09-08-2023 13:25-0400 Respiratory Rate - Anes 11 br/min JEAN PIERRE ARREAGA MD [facility] 09-08-2023 11:18-0400 Body height 170.2 cm JEAN PIERRE ARREAGA MD [facility] 09-08-2023 11:18-0400 Body weight 98.7 kg JEAN PIERRE ARREAGA MD [facility] 09-08-2023 10:55-0400 Heart rate 56 /min JEAN PIERRE ARREAGA MD [facility] 12-06-2022 09:18-0400 Body weight 97.98 kg Lauren Podlogar SURGICAL ASSISTANT.MANAGER OUTREACH Work Phone: [facility] 12-06-2022 09:18-0400 Diastolic blood pressure 60 mm[Hg] Lauren Podlogar SURGICAL ASSISTANT.MANAGER OUTREACH Work Phone: [facility] 12-06-2022 09:18-0400 Heart rate 50 /min Lauren Podlogar SURGICAL ASSISTANT.MANAGER OUTREACH Work Phone: [facility] 12-06-2022 09:18-0400 Respiratory rate 16 /min Lauren Podlogar SURGICAL ASSISTANT.MANAGER OUTREACH Work Phone: [facility] 12-06-2022 09:18-0400 SaO2% (BldA) [Mass fraction] 96 % Lauren Podlogar SURGICAL ASSISTANT.MANAGER OUTREACH Work Phone: [facility] 12-06-2022 09:18-0400 Systolic blood pressure 128 mm[Hg] Lauren Podlogar SURGICAL ASSISTANT.MANAGER OUTREACH Work Phone: [facility] 09-06-2022 09:54-0400 Body weight 99.52 kg Lauren Podlogar SURGICAL ASSISTANT.MANAGER OUTREACH Work Phone: [facility] 09-06-2022 09:54-0400 Diastolic blood pressure 62 mm[Hg] Lauren Podlogar SURGICAL ASSISTANT.MANAGER OUTREACH Work Phone: [facility] 09-06-2022 09:54-0400 Heart rate 58 /min Lauren Podlogar SURGICAL ASSISTANT.MANAGER OUTREACH Work Phone: [facility] 09-06-2022 09:54-0400 Respiratory rate 18 /min Lauren Podlogar SURGICAL ASSISTANT.MANAGER OUTREACH Work Phone: [facility] 09-06-2022 09:54-0400 SaO2% (BldA) [Mass fraction] 93 % Lauren Podlogar SURGICAL ASSISTANT.MANAGER OUTREACH Work Phone: [facility] 09-06-2022 09:54-0400 Systolic blood pressure 138 mm[Hg] Lauren Podlogar SURGICAL ASSISTANT.MANAGER OUTREACH Work Phone: [facility] 06-07-2022 11:12-0500 Diastolic blood pressure 62 mm[Hg] Husam Yan MD Work Phone: [facility] 06-07-2022 11:12-0500 Systolic blood pressure 144 mm[Hg] Husam Yan MD Work Phone: [facility] 06-07-2022 10:29-0500 Body weight 98.7 kg Husam Yan MD Work Phone: [facility] 06-07-2022 10:29-0500 Heart rate 58 /min Husam Yan MD Work Phone: [facility] 06-07-2022 10:29-0500 Respiratory rate 16 /min Husam Yan MD Work Phone: [facility] 06-07-2022 10:29-0500 SaO2% (BldA) [Mass fraction] 96 % Husam Yan MD Work Phone: [facility] 03-05-2022 09:46-0400 Body weight 98.16 kg Husam Yan MD Work Phone: [facility] 03-05-2022 09:46-0400 Diastolic blood pressure 60 mm[Hg] Husam Yan MD Work Phone: [facility] 03-05-2022 09:46-0400 Heart rate 58 /min Husam Yan MD Work Phone: [facility] 03-05-2022 09:46-0400 Respiratory rate 16 /min Husam Yan MD Work Phone: [facility] 03-05-2022 09:46-0400 Systolic blood pressure 136 mm[Hg] Husam Yan MD Work Phone: [facility] 11-06-2021 09:22-0400 Body height 172.[address] Jean Yan Work Phone: [facility] Work Phone: 11-06-2021 09:22-0400 Body weight 97.[address] Jean Yan Work Phone: [facility] Work Phone: 11-05-2021 09:04-0400 Body mass index (BMI) [Ratio] 32.5 kg/m2 Dr. Jean Yan Work Phone: [facility] Work Phone: 10-21-2021 14:22-0400 Body mass index (BMI) [Ratio] 32.5 kg/m2 Dr. Jean Yan Work Phone: [facility] Work Phone: 10-21-2021 14:22-0400 Body temperature 98 [degF] Dr. Jean Yan Work Phone: [facility] Work Phone: 10-21-2021 14:22-0400 Body weight 97.[address] Jean Yan Work Phone: [facility] Work Phone: 10-21-2021 14:22-0400 Diastolic blood pressure 75 mm[Hg] Dr. Jean Yan Work Phone: [facility] Work Phone: 10-21-2021 14:22-0400 Heart rate 43 /min Dr. Jean Yan Work Phone: [facility] Work Phone: 10-21-2021 14:22-0400 Respiratory rate 16 /min Dr. Jean Yan Work Phone: [facility] Work Phone: 10-21-2021 14:22-0400 SaO2% (BldA) [Mass fraction] 93 % Dr. Jean Yan Work Phone: [facility] Work Phone: 10-21-2021 14:22-0400 Systolic blood pressure 166 mm[Hg] Dr. Jean Yan Work Phone: [facility] Work Phone: 10-27-2016 15:34-0400 Heart rate 69 /min [facility] Work Phone: 10-27-2016 15:09-0400 BMI (Body Mass Index) 33.15 kg/m2 [facility] Work Phone: 10-27-2016 15:09-0400 Body weight 101.83 kg [facility] Work Phone: 10-27-2016 15:09-0400 BP Diastolic 70 mm[Hg] [facility] Work Phone: 10-27-2016 15:09-0400 BP Systolic 152 mm[Hg] [facility] Work Phone: 10-27-2016 15:040 Height 175.26 cm [facility] Work Phone: 10-27-2016 15:040 Pulse (Heart Rate) 64 /min [facility] Work Phone: 10-27-2016 15:040 Respiratory Rate 20 /min [facility] Work Phone: 10-27-2016 15:040 Weight 101.83 kg [facility] Work Phone: Encounters Encounter Date Encounter Type Care Provider Facility Start: 10-29-2024 End: 10-29-2024 ambulatory Nando Wiggins Facility:[facility] Start: 10-22-2024 ambulatory Efrehanbe Holliee OLS Fa cility:[facility] Start: 10-17-2024 End: 10-17-[address] [facility] Work Phone: Start: 10-17-2024 End: 10-17-2024 ambulatory Salma Cervantes Facility:[facility] Start: 10-16-2024 ambulatory Effili Brownee OLS Fa cility:[facility] Start: 10-16-2024 [facility] Start: 10-08-2024 ambulatory Efewongbe Holliee OLS Fa cility:[facility] Start: 10-08-2024 [facility] Start: 10-03-2024 End: 10-03-[address] [facility] Work Phone: Start: 10-03-2024 End: 10-03-[address] Jean Yan MD Work Phone: [facility] Work Phone: Start: 10-02-2024 End: 10-02-[address] Nando Wiggins MD Work Phone: [facility] Work Phone: Start: 10-02-2024 End: 10-02-2024 Nando Wiggins MD [facility] Start: 10-02-2024 End: 10-02-2024 ambulatory Effili Wiggins OLS Facility:[facility] Start: 09-24-2024 ambulatory Warren Mendoza Julianne ty:[facility] Start: 09-24-2024 Dr. Randal Damico MD -[facility] Start: 09-24-2024 End: 10-18-[address] Jean Yan MD Work Phone: [facility] Work Phone: Start: 09-24-2024 End: 10-18-2024 Dr. Randal [facility] Work Phone: Start: 09-24-2024 End: 09-24-2024 ambulatory Nando SHERWOOD Facility:[facility] Start: 09-21-2024 ambulatory Salma Cervantes [facility] Start: 09-17-2024 [facility] Start: 09-17-2024 End: 09-17-2024 ambulatory Effili Wiggins OLS Facility:[facility] Start: 09-12-2024 End: 09-12-[address] Jean Yan MD Work Phone: [facility] Work Phone: Start: 09-12-2024 End: 09-12-2024 [facility] Start: 09-12-2024 End: 09-12-2024 ambulatory Effili Wiggins OLS Facility:[facility] Start: 09-10-2024 ambulatory Effili Wiggins OLS Fa cility:[facility] Start: 09-10-2024 Nando Wiggins MD [facility] Start: 09-05-2024 End: 09-05-2024 ambulatory Effili Wiggins Facility:[facility] Start: 09-05-2024 End: 09-05-2024 Meredith STEWART -[facility] Work Phone: Start: 09-04-2024 Salma [facility] Start: 09-03-2024 Dr. [facility] Start: 09-03-2024 Dr. Randal Damico MD -[facility] Start: 09-02-2024 Salma [facility] Start: 09-01-2024 Salma MINER [facility] Start: 08-31-2024 ambulatory [facility] Start: 08-31-2024 Dr. Randal Damico MD -[facility] Start: 08-31-2024 Salma MIN[facility] Start: 08-30-2024 Salma [facility] Start: 08-30-2024 Dr. Randal Damico MD [facility] Start: 08-29-2024 ambulatory [facility] Start: 08-29-2024 End: 09-04-2024 Evaluation and management of inpatient [facility] Facility:[facility] Start: 08-29-2024 End: 09-04-2024 Dr. Earl White MD -Medical Surgical 3 Work Phone: Start: 08-29-2024 Dr. Earl White MD -[facility] Start: 08-29-2024 ambulatory [facility] Start: 08-28-2024 ambulatory Nando Whitaker ty:[facility] Start: 08-28-2024 Nando Wiggins MD -[facility] Start: 08-27-2024 ambulatory Warren Whitaker ty:[facility] Start: 08-27-2024 Dr. Randal Damico MD [facility] Start: 08-27-2024 End: 09-19-2024 ambulatory Randal Damico Facility:[facility] Start: 08-27-2024 End: 09-19-2024 Dr. Randal [facility] Work Phone: Start: 08-27-2024 End: 08-27-2024 ambulatory Efbiancaongbe Holliee OLS Facility:[facility] Start: 08-20-2024 ambulatory Randal Ayaladhaval Facility:[facility] Start: 08-20-2024 Dr. Randal Damico MD - [facility] Start: 08-20-2024 End: 08-20-2024 ambulatory Warren Mendoza Facility:[facility] Start: 08-20-2024 End: 08-20-2024 Dr. Randal Damico [facility] Work Phone: Start: 08-17-2024 ambulatory Salma Cervantes [facility] Start: 08-14-2024 End: 08-14-2024 ambulatory [facility] Facility:[facility] Start: 08-14-2024 End: 08-14-2024 Dr. Nando Wiggins MD -[facility] Work Phone: Start: 08-13-2024 ambulatory Randal Damico Facility:[facility] Start: 08-13-2024 End: 08-13-2024 Dr. Randal Damico MD -[facility] Start: 08-13-2024 End: 08-13-2024 ambulatory Debissuewolf Wiggins OLS Facility:[facility] Start: 08-06-2024 ambulatory Randal Damico Facility:[facility] Start: 08-06-2024 Dr. Randal Damico MD - [facility] Start: 08-01-2024 End: 08-01-2024 Emergency department patient visit [facility] Facility:[facility] Start: 08-01-2024 End: 08-01-2024 ambulatory [facility] Facility:[facility] Start: 08-01-2024 End: 08-01-2024 Dr. Des Garcia DO -Emergency Departdc nt Work Phone: Start: 07-31-2024 End: 07-31-2024 [facility] Start: 07-31-2024 End: 07-31-2024 Meredith MEZAC -[facility] Work Phone: Start: 07-30-2024 ambulatory Warren Mendoza Facili ty:[facility] Start: 07-30-2024 Dr. Randal Damico MD [facility] Start: 07-23-2024 ambulatory Warren Reji Whitaker ty:[facility] Start: 07-23-2024 Dr. Randal Damico MD [facility] Start: 07-20-2024 Dr. Margarette Godinez DO [facility] Work Phone: Start: 07-20-2024 [facility] Start: 07-20-2024 Dr. Earl White MD [facility] Start: 07-19-2024 Dr. Margarette Godinez DO [facility] Work Phone: Start: 07-18-2024 ambulatory [facility] Facility:[facility] Start: 07-18-2024 Dr. Earl White MD [facility] Start: 07-18-2024 Dr. [facility] Work Phone: Start: 07-17-2024 Dr. Jayla Osuna MD [facility] Work Phone: Start: 07-16-2024 ambulatory Nando Wiggins Koffii ty:[facility] Start: 07-16-2024 Dr. Zenaida Cooper MD [facility] Start: 07-15-2024 Dr. Juan Antonio Holden MD [facility] Work Phone: Start: 07-14-2024 Dr. Juan Antonio Holden MD [facility] Work Phone: Start: 07-13-2024 End: 07-20-2024 Evaluation and management of inpatient Jayla Osuna Facility:[facility] Start: 07-13-2024 End: 07-20-2024 Dr. Margarette Godinez DO [facility] 3 Work Phone: Start: 07-13-2024 ambulatory Jayla Osuna [facility] Start: 07-13-2024 End: 07-13-2024 ambulatory Meredith Guevara [employer] Facility:[facility] Start: 07-13-2024 End: 07-13-2024 Meredith Guevara [employer]-C -[facility] Work Phone: Start: 07-11-2024 End: 07-12-2024 Patient encounter procedure Pérez Walker MA [facility] Comment on above: Population Health Na vigation Outreach [facility] Start: 07-11-2024 End: 07-20-2024 ambulatory Pérez Walker MA [facility] Start: 07-11-2024 End: 07-20-2024 Dr. Randal Damico MD [facility] Work Phone: Start: 07-10-2024 End: 07-10-2024 ambulatory Meredith Guevara [employer] Facility:[facility] Start: 07-10-2024 End: 07-10-2024 Meredith Guevara [employer]-C -[facility] Work Phone: Start: 07-09-2024 End: 07-10-2024 Refill [facility] Comment on above: Refill Request Start: 07-09-2024 Nando Wiggins MD -[facility] Start: 07-07-2024 End: 07-07-2024 Dr. Alicia Loo DO -Emergency Departmen t Work Phone: Start: 07-07-2024 End: 07-07-2024 Emergency department patient visit [facility] Facility:[facility] Start: 07-03-2024 End: 07-03-2024 Dr. Eric Franklin MD -Emergency Departmen t Work Phone: Start: 07-03-2024 End: 07-03-2024 Emergency department patient visit [facility] Facility:[facility] Start: 07-02-2024 Dr. Fernando stein DO -[facility] Work Phone: Start: 07-02-2024 End: 07-02-2024 ambulatory Manuel Alva Facility:[facility] Start: 07-02-2024 End: 07-02-2024 Dr. Fernando Oliveros DO -Progressive Care Unit Work Phone: Start: 06-25-2024 ambulatory Brianwolf Rosalie OLS Fa cility:[facility] Start: 06-25-2024 Nando Bravo Start: 06-20-2024 End: 06-20-2024 [facility] Work [facility]: Start: 06-20-2024 End: 06-20-2024 ambulatory Nando Wiggins Facility:[facility] Start: 06-19-2024 End: 06-22-2024 ambulatory Des Ruelas Facility:[facility] Start: 06-19-2024 End: 06-22-2024 Dr. Des Ruelas DPBreanne -[facility] Work Phone: Start: 06-18-2024 ambulatory Nando Wiggins KAELA Fa cility:[facility] Start: 06-18-2024 Nando Bravo Start: 06-11-2024 End: 06-11-2024 Patient encounter procedure Danilo Butterfield MA [facility] Comment on above: Population Health Na vigation Outreach ([facility]) Start: 06-11-2024 End: 06-11-2024 ambulatory Danilo Butterfield MA [facility] Start: 06-11-2024 Nando Bravo Start: 06-08-2024 ambulatory Nando SHERWOOD Fa cility:[facility] Start: 06-08-2024 Nando Bravo Start: 06-06-2024 End: 06-06-2024 ambulatory Meredith Guevara NP Facility:[facility] Start: 06-06-2024 End: 06-06-2024 Meredith Guevara [employer]- -[facility] Work Phone: Start: 06-06-2024 End: 06-06-2024 ambulatory Des Ruelas Facility:[facility] Start: 06-06-2024 End: 06-06-2024 Dr. Des Ruelas DPBreanne -Surgical Day Care Start: 06-06-2024 End: 06-06-2024 ambulatory Nando SHERWOOD Facility:[facility] Start: 06-04-2024 End: 06-04-2024 ambulatory Meredith Guevara NP Facility:[facility] Start: 05-30-2024 End: 06-05-2024 Telephone encounter Husam Yan MD Work Phone: [facility] Comment on above: Patient Update; Fill out Surgical Release Forms Start: 05-28-2024 ambulatory Nando SHERWOOD Fa cility:[facility] Start: 05-22-2024 ambulatory Earl White Facility:[facility] Start: 05-22-2024 End: 05-22-2024 ambulatory Earl Frederick Facility:[facility] Start: 05-21-2024 ambulatory Nando SHERWOOD Fa cility:[facility] Start: 05-17-2024 ambulatory Warren Raini ty:[facility] Start: 05-17-2024 End: 05-22-2024 ambulatory Warren Mendoza Facility:[facility] Start: 05-15-2024 End: 05-15-2024 ambulatory Nando Wiggins Facility:[facility] Start: 05-11-2024 End: 05-11-2024 ambulatory Jean Yan Facility:[facility] Start: 05-04-2024 ambulatory Salma Cervantes [facility] Start: 05-04-2024 End: 05-10-2024 ambulatory Earl White Facility:[facility] Start: 05-04-2024 End: 05-10-2024 Evaluation and management of inpatient Deni Shields Facility:[facility] Start: 05-02-2024 ambulatory Yunior Ross Dangelo SHERWOOD Facil ity:[facility] Start: 04-23-2024 End: 04-23-2024 ambulatory [facility] Start: 04-23-2024 End: 04-23-2024 Patient encounter [facility] Comment on above: Population Health Na vigation Outreach ([employer] ) Start: 04-16-2024 ambulatory Earl White [facility] Start: 04-16-2024 End: 04-16-2024 ambulatory Warren Jackson Facility:[facility] Start: 04-14-2024 End: 04-24-2024 Evaluation and management of inpatient Warren Mendoza Facility:[facility] Start: 04-14-2024 ambulatory Earl Frederick [facility] Start: 04-14-2024 End: 04-14-2024 ambulatory HUSAM YAN Facility:[facility] Start: 04-14-2024 End: 04-14-2024 Patient encounter procedure Yolanda Jain SURGICAL ASSISTANT.MANAGER OUTREACH Work Phone: [facility] Comment on above: Right foot infection (Primary Dx) Start: 04-13-2024 End: 04-17-2024 Telephone encounter Lauren Arzola APRN.MANAGER OUTREACH Work Phone: [facility] Comment on above: blood sugar reading average Start: 04-05-2024 End: 04-06-2024 Telephone encounter Lauren Arzola APRN.MANAGER OUTREACH Work Phone: [facility] Comment on above: blood sugar average Start: 03-28-2024 End: 03-28-2024 Patient encounter procedure Lauren Arzola SURGICAL ASSISTANT.MANAGER OUTREACH Work Phone: [facility] Comment on above: 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, without long-term current use of insulin (HCC) (Primary Dx); 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) Start: 03-28-2024 End: 03-28-2024 ambulatory LAUREN XIELOGERICK Facility:[facility] Start: 01-06-2024 End: 01-06-2024 Patient encounter procedure Lauren Xielogerick SURGICAL ASSISTANT.MANAGER OUTREACH Work Phone: [facility] Comment on above: 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, with long-term current use of insulin (HCC) (Primary Dx); 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); Chronic diastolic heart failure (HCC); Mobitz (type) I (Wenckebach's) atrioventricular block; Lower extremity edema; Essential hypertension; Mixed hyperlipidemia Start: 01-06-2024 End: 01-06-2024 ambulatory LAUREN PODLOGAR Facility:[facility] Start: 12-15-2023 End: 02-02-2024 Refill Husam Yan MD Work Phone: [facility] [place] Comment on above: Refill Request (See Rx notes) Start: 09-08-2023 End: 09-08-2023 ambulatory JEAN PIERRE ARREAGA MD Facility:A Start: 09-08-2023 End: 09-08-2023 SAME DAY STAY JEAN PIERRE ARREAGA MD [facility] Start: 09-06-2023 Telephone encounter Jean Yan MD Work Phone: [facility] [place] Comment on above: Medication Request Start: 08-08-2023 Telephone encounter Jean Yan MD Work Phone: [facility] [place] Comment on above: Medication Problem ( Freestyle gelacio 14 day sensor kit - patient's sensor reader is a gelacio 2 and the sensors ordered by our office are incompatible with his reader ) Start: 07-28-2023 Refill Husam Yan MD Work Phone: [facility] [place] Comment on above: Refill Request Start: 07-12-2023 Refill Husam Yan MD Work Phone: [facility] [place] Comment on above: Refill Request Start: 07-11-2023 Refill Husam Yan MD Work Phone: [facility] Comment on above: Refill Request Start: 06-27-2023 End: 06-27-2023 Patient encounter procedure Danilo Bobbi Work Phone: Podiatry Comment on above: 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, without long-term current use of insulin (HCC) (Primary Dx); Onychomycosis; Left foot pain; Right foot pain Start: 03-15-2023 Telephone encounter Jean Yan MD Work Phone: [facility] [place] Comment on above: [facility] requesting records Start: 03-08-2023 Telephone encounter Jean Yan MD Work Phone: [facility] [place] Comment on above: Medication Problem Start: 02-23-2023 Telephone encounter Jean Yan MD Work Phone: [facility] [place] Comment on above: Insurance Authorizat ion Start: 01-04-2023 Refill Husam Yan MD Work Phone: [facility] [place] Start: 12-06-2022 End: 12-06-2022 Patient encounter procedure Lauren Arzola SURGICAL ASSISTANT.MANAGER OUTREACH Work Phone: [facility] [place] Comment on above: 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, without long-term current use of insulin (HCC) (Primary Dx); Lower extremity edema; 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); Chronic diastolic heart failure (HCC); Essential hypertension; Mobitz (type) I (Wenckebach's) atrioventricular block; At high risk for falls Start: 11-15-2022 Refill Husam Yan MD Work Phone: [facility] Comment on above: Refill Request Start: 11-04-2022 Refill Husam Yan MD Work Phone: [facility] Comment on above: Refill Request Start: 10-27-2022 Refill Husam Yan MD Work Phone: [facility] Comment on above: Refill Request Start: 09-06-2022 End: 09-06-2022 Patient encounter procedure Lauren Arzola APRN.MANAGER OUTREACH Work Phone: [facility] Comment on above: 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, without long-term current use of insulin (HCC) (Primary Dx); 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); Chronic diastolic heart failure (HCC) Start: 08-19-2022 Refill Husam Yan MD Work Phone: [facility] Comment on above: Refill Request Start: 06-08-2022 Telephone encounter Jean Yan MD Work Phone: [facility] Comment on above: Results Start: 06-07-2022 End: 06-07-2022 Patient encounter procedure Husam Yan MD Work Phone: [facility] Comment on above: 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, without long-term current use of insulin (HCC) (Primary Dx); Essential hypertension; Mixed hyperlipidemia; 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); Chronic diastolic heart failure (HCC); Bradycardia; Lower extremity edema; Noncompliance of patient with dietary regimen; 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); 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 edema, with long-term current use of insulin (HCC) Start: 03-09-2022 Telephone encounter Jean Yan MD Work Phone: [facility] Comment on above: Results Start: 03-05-2022 End: 03-05-2022 Patient encounter procedure Husam Yan MD Work Phone: [facility] Comment on above: 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, without long-term current use of insulin (HCC) (Primary Dx); Essential hypertension; Mixed hyperlipidemia; ESRD (end stage renal disease) on dialysis ([facility]); Need for COVID-19 vaccine Start: 02-03-2022 Telephone encounter Jean Yan MD Work Phone: [facility] Comment on above: Insurance Authorizat ion (Information on Glargine) Start: 02-02-2022 Refill Husam Yan MD Work Phone: [facility] Comment on above: Refill Request Start: 01-26-2022 Refill Husam Yan MD Work Phone: [facility] Comment on above: Refill Request Start: 12-14-2021 Refill Husam Yan MD Work Phone: [facility] Comment on above: Refill Request Start: 11-06-2021 Non-patient / Non-visit Dr. Mike Yan Work Phone: [facility] Start: 11-06-2021 End: 11-06-2021 Admission to same day surgery center Dr. Jean Yan Work Phone: [facility] Start: 10-21-2021 End: 10-21-[address] 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 Yasir Yan Work Phone: [facility] Procedures Date Procedure Procedure Detail Performing Clinician Start: 10-16-2024 Blood count smear mc rscp w/mnl difrntl wbc count Dr. Jean Yan MD Work Phone: Start: 10-16-2024 Mean corpuscular hemoglobin concentration determination Dr. Jean Yan MD Work Phone: Start: 10-16-2024 Nucleated red blood cell count procedure Dr. Jean Yan MD Work Phone: Start: 10-16-2024 Platelet mean volume determination Dr. Jean Yan MD Work Phone: Start: 10-08-2024 Blood count smear mc rscp w/mnl difrntl wbc count Dr. Jean Yan MD Work Phone: Start: 10-08-2024 Mean corpuscular hemoglobin concentration determination Dr. Jean Yan MD Work Phone: Start: 10-08-2024 Nucleated red blood cell count procedure Dr. Jean Yan MD Work Phone: Start: 10-08-2024 Platelet mean volume determination Dr. Jean Yan MD Work Phone: Start: 10-02-2024 Blood count smear mc rscp w/mnl difrntl wbc count Dr. Jean Yan MD Work Phone: Start: 10-02-2024 Mean corpuscular hemoglobin concentration determination Dr. Jean Yan MD Work Phone: Start: 10-02-2024 Nucleated red blood cell count procedure Dr. Jean Yan MD Work Phone: Start: 10-02-2024 Platelet mean volume determination Dr. Jean Yan MD Work Phone: Start: 09-24-2024 Blood count smear mc rscp w/mnl difrntl wbc count Dr. Jean Yan MD Work Phone: Start: 09-24-2024 Mean corpuscular hemoglobin concentration determination Dr. Jean Yan MD Work Phone: Start: 09-24-2024 Nucleated red blood cell count procedure Dr. Jean Yan MD Work Phone: Start: 09-24-2024 Platelet mean volume determination Dr. Jean Yan MD Work Phone: Start: 09-17-2024 Blood count smear mc rscp w/mnl difrntl wbc count Dr. Jean Yan MD Work Phone: Start: 09-17-2024 Mean corpuscular hemoglobin concentration determination Dr. Jean Yan MD Work Phone: Start: 09-17-2024 Nucleated red blood cell count procedure Dr. Jean Yan MD Work Phone: Start: 09-17-2024 Platelet mean volume determination Dr. Jean Yan MD Work Phone: Start: 09-12-2024 Vitamin D, 25-hydrox y measurement Dr. Jean Yan MD Work Phone: Start: 09-10-2024 Blood count smear mc rscp w/mnl difrntl wbc count Dr. Jean Yan MD Work Phone: Start: 09-10-2024 Mean corpuscular hemoglobin concentration determination Dr. Jean Yan MD Work Phone: Start: 09-10-2024 Nucleated red blood cell count procedure Dr. Jean Yan MD Work Phone: Start: 09-10-2024 Platelet mean volume determination Dr. Jean Yan MD Work Phone: Start: 09-03-2024 Blood count smear mc rscp w/mnl difrntl wbc count Dr. Jean Yan MD Work Phone: Start: 09-03-2024 Mean corpuscular hemoglobin concentration determination Dr. Jean Yan MD Work Phone: Start: 09-03-2024 Nucleated red blood cell count procedure Dr. Jean Yan MD Work Phone: Start: 09-03-2024 Platelet mean volume determination Dr. Jean Yan MD Work Phone: Start: 09-02-[address] Jean Yan MD Work Phone: Start: 08-29-2024 Amputation of lower limb Dr. Jean Yan MD Work Phone: Start: 08-29-2024 Dr. Bi Yan MD Work Phone: Start: 08-27-2024 Blood count smear mc rscp w/mnl difrntl wbc count Dr. Jean Yan MD Work Phone: Start: 08-27-2024 Mean corpuscular hemoglobin concentration determination Dr. Jean Yan MD Work Phone: Start: 08-27-2024 Nucleated red blood cell count procedure Dr. Jean Yan MD Work Phone: Start: 08-27-2024 Platelet mean volume determination Dr. Jean Yan MD Work Phone: Start: 08-20-2024 Blood count smear mc rscp w/mnl difrntl wbc count Dr. Jean Yan MD Work Phone: Start: 08-20-2024 Mean corpuscular hemoglobin concentration determination Dr. Jean Yan MD Work Phone: Start: 08-20-2024 Nucleated red blood cell count procedure Dr. Jean Yan MD Work Phone: Start: 08-20-2024 Platelet mean volume determination Dr. Jean Yan MD Work Phone: Start: 08-13-2024 Blood count smear mc rscp w/mnl difrntl wbc count Dr. Jean Yan MD Work Phone: Start: 08-13-2024 Mean corpuscular hemoglobin concentration determination Dr. Jean Yan MD Work Phone: Start: 08-13-2024 Nucleated red blood cell count procedure Dr. Jean Yan MD Work Phone: Start: 08-13-2024 Platelet mean volume determination Dr. Jean Yan MD Work Phone: Start: 08-13-2024 Vitamin D, 25-hydrox y measurement Dr. Jean Yan MD Work Phone: Start: 08-06-2024 Blood count smear mc rscp w/mnl difrntl wbc count Dr. Jean Yan MD Work Phone: Start: 08-06-2024 Mean corpuscular hemoglobin concentration determination Dr. Jean Yan MD Work Phone: Start: 08-06-2024 Nucleated red blood cell count procedure Dr. Jean Yan MD Work Phone: Start: 08-06-2024 Platelet mean volume determination Dr. Jean Yan MD Work Phone: Start: 08-01-2024 Blood count smear mc rscp w/mnl difrntl wbc count Dr. Jean Yan MD Work Phone: Start: 08-01-2024 Mean corpuscular hemoglobin concentration determination Dr. Jean Yan MD Work Phone: Start: 08-01-2024 Nucleated red blood cell count procedure Dr. Jean Yan MD Work Phone: Start: 08-01-2024 Platelet mean volume determination Dr. Jean Yan MD Work Phone: Start: 08-01-2024 X-ray of foot, three or more views Dr. Jean Yan MD Work Phone: Start: 07-30-2024 Blood count smear mc rscp w/mnl difrntl wbc count Dr. Jean Yan MD Work Phone: Start: 07-30-2024 Mean corpuscular hemoglobin concentration determination Dr. Jean Yan MD Work Phone: Start: 07-30-2024 Nucleated red blood cell count procedure Dr. Jean Yan MD Work Phone: Start: 07-30-2024 Platelet mean volume determination Dr. Jean Yan MD Work Phone: Start: 07-23-2024 Blood count smear mc rscp w/mnl difrntl wbc count Dr. Jean Yan MD Work Phone: Start: 07-23-2024 Mean corpuscular hemoglobin concentration determination Dr. Jean Yan MD Work Phone: Start: 07-23-2024 Nucleated red blood cell count procedure Dr. Jean Yan MD Work Phone: Start: 07-23-2024 Platelet mean volume determination Dr. Jean Yna MD Work Phone: Start: 07-20-2024 Blood count smear mc rscp w/mnl difrntl wbc count Dr. Jean Yan MD Work Phone: Start: 07-20-2024 Mean corpuscular hemoglobin concentration determination Dr. Jean Yan MD Work Phone: Start: 07-20-2024 Nucleated red blood cell count procedure Dr. Jean Yan MD Work Phone: Start: 07-20-2024 Platelet mean volume determination Dr. Jean Yan MD Work Phone: Start: 07-20-[address] Jean Yan MD Work Phone: Start: 07-17-[address] Gil Yan MD Work Phone: Start: 07-17-2024 Measurement of renal function Dr. Jean Yan MD Work Phone: Start: 07-16-2024 Fluoroscopic guidance Boo Yan MD Work Phone: Start: 07-16-2024 X-ray of foot, two views Dr. Jean Yan MD Work Phone: Start: 07-16-[address] Jean Yan MD Work Phone: Start: 07-16-[address] Jean Yan MD Work Phone: Start: 07-16-[address] Gil Yan MD Work Phone: Start: 07-16-2024 Gram stain microscopy Boo Yan MD Work Phone: Start: 07-16-2024 Microbial culture, routine Dr. Jean Yan MD Work Phone: Start: 07-16-2024 Wound microscopy, cu lture and sensitivities Dr. Jean Yan MD Work Phone: Start: 07-16-2024 Incision and drainag e of abscess Dr. Jean Yan MD Work Phone: Start: 07-16-2024 Calculation of international normalized ratio Dr. Jean Yan MD Work Phone: Start: 07-15-2024 X-ray of foot, three or more views Dr. Jean Yan MD Work Phone: Start: 07-13-2024 X-ray of chest, PA a nd lateral views Dr. Jean Yan MD Work Phone: Start: 07-13-2024 X-ray of foot, three or more views Dr. Jean Yan MD Work Phone: Start: 07-13-[address] Jean Yan MD Work Phone: Start: 07-13-[address] Gil Yan MD Work Phone: Start: 07-13-2024 Gram stain microscopy Boo Yan MD Work Phone: Start: 07-13-2024 Identification proce elizabeth for living organism Dr. Jean Yan MD Work Phone: Start: 07-13-2024 Microbial culture, routine Dr. Jean Yan MD Work Phone: Start: 07-13-2024 Dr. Bi Yan MD Work Phone: Start: 07-09-2024 Anion gap measurement Boo Yan MD Work Phone: Start: 07-09-2024 Blood count smear mc rscp w/mnl difrntl wbc count Dr. Jean Yan MD Work Phone: Start: 07-09-2024 BUN/Creatinine ratio Dr Chucho Yan MD Work Phone: Start: 07-09-2024 Mean corpuscular hemoglobin concentration determination Dr. Jean Yan MD Work Phone: Start: 07-09-2024 Measurement of renal function Dr. Jean Yan MD Work Phone: Start: 07-09-2024 Nucleated red blood cell count procedure Dr. Jean Yan MD Work Phone: Start: 07-09-2024 Platelet mean volume determination Dr. Jean Yan MD Work Phone: Start: 07-07-2024 Plain chest X-ray Dr. Yasir Yan MD Work Phone: Start: 07-07-2024 Urine microscopy: re d cells Dr. Jean Yan MD Work Phone: Start: 07-07-2024 Urnls dip stick/tabl et reagent auto microscopy Dr. Jean Yan MD Work Phone: Start: 07-07-2024 CT of head without contrast Dr. Jean Yan MD Work Phone: Start: 07-07-2024 Anion gap measurement Boo Yan MD Work Phone: Start: 07-07-2024 Blood count smear mc rscp w/mnl difrntl wbc count Dr. Jean Yan MD Work Phone: Start: 07-07-2024 BUN/Creatinine ratio Dr Chucho Yan MD Work Phone: Start: 07-07-[address] Jean Yan MD Work Phone: Start: 07-07-2024 Mean corpuscular hemoglobin concentration determination Dr. Jean Yan MD Work Phone: Start: 07-07-2024 Measurement of renal function Dr. Jean Yan MD Work Phone: Start: 07-07-2024 Nucleated red blood cell count procedure Dr. Jean Yan MD Work Phone: Start: 07-07-2024 Platelet mean volume determination Dr. Jean Yan MD Work Phone: Start: 07-07-2024 Dr. Bi Yan MD Work Phone: Start: 07-03-2024 Albumin/Globulin ratio Dr. Jean Yan MD Work Phone: Start: 07-03-2024 Anion gap measurement Boo Yan MD Work Phone: Start: 07-03-2024 Blood count smear mc rscp w/mnl difrntl wbc count Dr. Jean Yan MD Work Phone: Start: 07-03-2024 BUN/Creatinine ratio Dr Chucho Yan MD Work Phone: Start: 07-03-[address] Jean Yan MD Work Phone: Start: 07-03-2024 Mean corpuscular hemoglobin concentration determination Dr. Jean Yan MD Work Phone: Start: 07-03-2024 Measurement of renal function Dr. Jean Yan MD Work Phone: Start: 07-03-2024 Nucleated red blood cell count procedure Dr. Jean Yan MD Work Phone: Start: 07-03-2024 Platelet mean volume determination Dr. Jean Yan MD Work Phone: Start: 07-02-2024 Anion gap measurement Boo Yan MD Work Phone: Start: 07-02-2024 BUN/Creatinine ratio Dr Chucho Yan MD Work Phone: Start: 07-02-[address] Jean Yan MD Work Phone: Start: 07-02-2024 Measurement of renal function Dr. Jean Yan MD Work Phone: Start: 07-02-2024 Anion gap measurement Boo Yan MD Work Phone: Start: 07-02-2024 Blood count smear mc rscp w/mnl difrntl wbc count Dr. Jean Yan MD Work Phone: Start: 07-02-2024 BUN/Creatinine ratio Dr Chucho Yan MD Work Phone: Start: 07-02-2024 Mean corpuscular hemoglobin concentration determination Dr. Jean Yan MD Work Phone: Start: 07-02-2024 Measurement of renal function Dr. Jean Yan MD Work Phone: Start: 07-02-2024 Nucleated red blood cell count procedure Dr. Jean Yan MD Work Phone: Start: 07-02-2024 Platelet mean volume determination Dr. Jean Yan MD Work Phone: Start: 06-25-2024 Anion gap measurement Boo Yan MD Work Phone: Start: 06-25-2024 Blood count smear mc rscp w/mnl difrntl wbc count Dr. Jean Yan MD Work Phone: Start: 06-25-2024 BUN/Creatinine ratio Dr Chucho Yan MD Work Phone: Start: 06-25-2024 Mean corpuscular hemoglobin concentration determination Dr. Jean Yan MD Work Phone: Start: 06-25-2024 Measurement of renal function Dr. Jean Yan MD Work Phone: Start: 06-25-2024 Nucleated red blood cell count procedure Dr. Jean Yan MD Work Phone: Start: 06-25-2024 Platelet mean volume determination Dr. Jean Yan MD Work Phone: Start: 06-18-2024 Anion gap measurement Boo Yan MD Work Phone: Start: 06-18-2024 Blood count smear mc rscp w/mnl difrntl wbc count Dr. Jean Yan MD Work Phone: Start: 06-18-2024 BUN/Creatinine ratio Dr Chucho Yan MD Work Phone: Start: 06-18-2024 Mean corpuscular hemoglobin concentration determination Dr. Jean Yan MD Work Phone: Start: 06-18-2024 Measurement of renal function Dr. Jean Yan MD Work Phone: Start: 06-18-2024 Nucleated red blood cell count procedure Dr. Jean Yan MD Work Phone: Start: 06-18-2024 Platelet mean volume determination Dr. Jean Yan MD Work Phone: Start: 06-11-2024 Anion gap measurement Boo Yan MD Work Phone: Start: 06-11-2024 Blood count smear mc rscp w/mnl difrntl wbc count Dr. Jean Yan MD Work Phone: Start: 06-11-2024 BUN/Creatinine ratio Dr Chucho Yan MD Work Phone: Start: 06-11-2024 Mean corpuscular hemoglobin concentration determination Dr. Jean Yan MD Work Phone: Start: 06-11-2024 Measurement of renal function Dr. Jean Yan MD Work Phone: Start: 06-11-2024 Nucleated red blood cell count procedure Dr. Jean Yan MD Work Phone: Start: 06-11-2024 Platelet mean volume determination Dr. Jean Yan MD Work Phone: Start: 06-06-2024 End: 06-06-[address]24 Acid fast bacilli culture Dr. Jean Yan MD Work Phone: Start: 06-06-[address] Jean Yan MD Work Phone: Start: 06-06-[address] Jean Yan MD Work Phone: Start: 06-06-2024 Gram stain microscopy Boo Yan MD Work Phone: Start: 06-06-2024 End: 06-06-2024 Microbial culture, routine Dr. Marco A Yan MD Work Phone: Start: 06-06-[address] Mike Yan MD Work Phone: Start: 06-06-2024 X-ray of foot, three or more views Dr. Jean Yan MD Work Phone: Start: 09-05-2023 Cataract extraction and insertion of intraocular lens JEAN PIERRE ARREAGA MD Comment on above: RIGHT EYE Start: 12-06-2022 Hemoglobin A1c/Hemoglobin.total in Blood Lauren Podlogar SURGICAL ASSISTANT.MANAGER OUTREACH Work Phone: Start: 09-06-2022 Hemoglobin A1c/Hemoglobin.total in Blood Lauren Podlogar SURGICAL ASSISTANT.MANAGER OUTREACH Work Phone: Start: 03-05-2022 [employer] COVI D-19 BIVALENT BOOSTER VACCINE, AGE 12+ YR Husam Yan MD Work Phone: Start: 05-23-2021 Angioplasty of blood vessel JEAN PIERRE ARREAGA MD Comment on above: LEFT UPPER EXTREMITY FISTULOGRA IWTH CUTTING BALLON ANGIOPLASTY Start: 03-04-2021 Radex foot complete minimum 3 views Husam Yan MD Work Phone: Start: 11-17-2016 End: 11-17-2016 Echocardiography Laron Bacon MD Start: 11-17-2016 End: 11-17-2016 Nuclear stress test -Lexiscan Laron Bacon MD Start: 10-27-2016 End: 10-27-2016 Documentation of current medications Carmen Hurt Start: 10-27-2016 End: 10-27-2016 Electrocardiogram, complete Laron Bacon MD Start: 10-27-2016 End: 10-27-2016 Follow Up Appt 6 months Breanne Robbins Start: 10-27-2016 End: 10-27-2016 ROSA Bacon MD Arteriovenous fistul a (morphologic abnormality) JEAN PIERRE ARREAGA MD Comment on above: LEFT ARM History of appendectomy History of appendectomy Dr. Jean Yan Work Phone: History of repair of inguinal hernia History of inguinal hernia repair Dr. Jean Yan Work Phone: Repair of inguinal hernia BA KEYUR ARREAGA MD Comment on above: UNSURE OF LATERALITY , HAD IN THE LATE S OR EARLY Tooth extraction JEAN PIERRE ARREAGA MD Comment on above: ALL TEETH REMOVED Plan of Treatment Date Care Activity Detail Author Start: 04-26-2028 Urine microalbumin profile [facility] Start: 09-04-2024 Patient discharge [facility] Start: 09-04-2024 End: 09-04-2024 [facility] Start: 09-04-2024 Hemodialysis care [facility] Start: 09-03-2024 Application of intermittent pneumatic compression device [facility] Start: 09-03-2024 Wound care [facility] Start: 09-03-2024 [facility] Start: 09-01-2024 End: 09-01-2024 [facility] Start: 09-01-2024 Hemodialysis care [facility] Start: 09-01-2024 Inhalation therapy procedure [facility] Start: 08-30-2024 Following clinical pathway protocol [facility] Start: 08-30-2024 [facility] Start: 08-30-2024 End: 08-30-2024 [facility] Start: 08-30-2024 Hemodialysis care [facility] Start: 08-30-2024 Referral to hand grinder [facility] Start: 08-29-2024 Following clinical pathway protocol [facility] Start: 08-29-2024 Assessment of risk of venous thromboembolism [facility] Start: 08-29-2024 Care regimes management [facility] Start: 08-29-2024 Insertion of catheter into peripheral vein [facility] Start: 08-29-2024 Notification of physician [facility] Start: 08-29-2024 Providing care according to standard [facility] Start: 08-29-2024 Referral to occupational therapist [facility] Start: 08-29-2024 Referral to service [facility] Start: 08-29-2024 End: 08-29-2024 [facility] Start: 08-29-2024 Admission procedure [facility] Start: 08-01-2024 [facility] Start: 07-20-2024 Patient discharge [facility] Start: 07-19-2024 End: 07-19-2024 [facility] Start: 07-19-2024 Hemodialysis care [facility] Start: 07-17-2024 End: 07-17-2024 [facility] Start: 07-17-2024 Hemodialysis care [facility] Start: 07-17-2024 Wound care [facility] Start: 07-16-2024 Following clinical pathway protocol [facility] Start: 07-16-2024 Inhalation therapy procedure [facility] Start: 07-14-2024 [facility] Start: 07-14-2024 Consultation [facility] Start: 07-14-2024 End: 07-14-2024 [facility] Start: 07-14-2024 Hemodialysis care [facility] Start: 07-13-2024 Application of intermittent pneumatic compression device [facility] Start: 07-13-2024 Assessment of risk of venous thromboembolism [facility] Start: 07-13-2024 Care regimes management [facility] Start: 07-13-2024 Consultation for treatment [facility] Start: 07-13-2024 Insertion of catheter into peripheral vein [facility] Start: 07-13-2024 Measuring intake and output [facility] Start: 07-13-2024 Notification of physician [facility] Start: 07-13-2024 Providing care according to standard [facility] Start: 07-13-2024 Provision of activity privileges [facility] Start: 07-13-2024 Referral to hand grinder [facility] Start: 07-13-2024 Referral to occupational therapist [facility] Start: 07-13-2024 Referral to hand riveter [facility] Start: 07-13-2024 Referral to service [facility] Start: 07-13-2024 End: 07-13-2024 [facility] Start: 07-13-2024 Admission procedure [facility] Start: 07-09-2024 End: 07-09-2024 Patient encounter procedure 07/09/2024 9:40 AM EST Office Visit Family [facility] [address] [place] [address] Husam Yan MD [address] [place] [address] 6 month follow up [facility] Comment on above: 6 month follow up Start: 07-07-2024 [facility] Start: 07-03-2024 [facility] Start: 07-02-2024 Patient discharge [facility] Start: 07-02-2024 End: 07-02-2024 [facility] Start: 07-02-2024 Hemodialysis care [facility] Start: 07-02-2024 Assessment of risk of venous thromboembolism [facility] Start: 07-02-2024 Catheterization of vein [facility] Start: 07-02-2024 Insertion of catheter into peripheral vein [facility] Start: 07-02-2024 Measuring intake and output [facility] Start: 07-02-2024 Providing care according to standard [facility] Start: 07-02-2024 Referral to hand grinder [facility] Start: 07-02-2024 Admission procedure [facility] Start: 06-28-2024 Hemoglobin A1c measurement HbA1C [facility] Start: 06-06-2024 Adjt tis trns/reargmt f/c/c/m/n/a/g/h/f 10sqcm/< [facility] Start: 06-06-2024 Amputation foot transmetarsal [facility] Start: 06-06-2024 Anes open proc bones lower leg/ankle/foot nos [facility] Start: 06-06-2024 Catheterization of vein [facility] Start: 06-06-2024 Neurovascular assessment [facility] Start: 06-06-2024 Patient discharge [facility] Start: 06-06-2024 Procedure discontinued [facility] Start: 06-06-2024 Vital signs measurements [facility] Start: 06-06-2024 [facility] Start: 05-25-2024 Hepatitis B surface antibody level LDL Cholesterol [facility] Start: 05-23-2024 Advance Directive Discussion Advance Directive Discussion [facility] Start: 04-27-2024 Glaucoma screening Dilated Retinal Exam [facility] Start: 02-22-2024 3 comp foot exam completed Diabetic Foot Exam [facility] Start: 02-22-2024 Diabetic foot examination Diabetic Foot Exam [facility] Start: 02-10-2024 End: 02-10-2024 Patient encounter procedure 02/10/2024 11:30 AM EDT Office Visit Podiatry [address] [place], [place] [id number] Danilo Martines [address] [place], [place] [id number] 3 month follow up nail care Podiatry Comment on above: 3 month follow up nail care Start: 01-22-2024 Covid-19 Vaccine ( season) Covid-19 Vaccine ( season) [facility] Start: 01-22-2024 Covid-19 Vaccine ( season) Covid-19 Vaccine ( season) [facility] Start: 01-22-2024 Influenza vaccination Influenza Vaccine (#1) [facility] Start: 01-06-2024 End: 04-06-2024 Comprehensive metabolic 2000 panel - Serum or Plasma COMPREHENSIVE METABOLIC PANEL Lab Routine 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 edema, with long-term current use of insulin (HCC) Expected: 01/06/2024, Expires: 04/06/2024 [facility] Work Phone: Comment on above: Expected: 01/06/2024, Expires: Start: 01-06-2024 End: 04-06-2024 Hemoglobin A1c in Blood HEMOGLOBIN A1C Lab Routine 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 edema, with long-term current use of insulin (HCC) Expected: 01/06/2024, Expires: 04/06/2024 [facility] Comment on above: Expected: 01/06/2024, Expires: Start: 11-04-2023 End: 11-04-2023 Patient encounter procedure Podiatry Comment on above: 3 month follow up nail care 4 month follow up Start: 08-24-2023 Hemoglobin A1c measurement HbA1C [facility] Start: 07-06-2023 Hepatitis B Vaccine (9 of 9 - Risk Dialysis Recombivax 3-dose series) Hepatitis B Vaccine (9 of 9 - Risk Dialysis Recombivax 3-dose series) [facility] Start: 06-24-2023 Covid-19 Vaccine (4 - Additional dose for Len series) Covid-19 Vaccine (4 - Additional dose for Len series) [facility] Start: 06-24-2023 Covid-19 Vaccine (2022- season) Covid-19 Vaccine ( season) [facility] Start: 06-07-2023 SHINGRIX VACCINE (1 of 2) SHINGRIX VACCINE (1 of 2) [facility] Comment on above: Postponed from 1954 (Declined at t his time) Postponed from 04/30 (Declined at this time) Start: 05-23-2023 Advance Directive Discussion Advance Directive Discussion [facility] Start: 05-23-2023 Behavioral Health Screening Behavioral Health Screening [facility] Start: 03-08-2023 Hemoglobin A1c/Hemoglobin.total in Blood HBA1C [facility] Start: 03-05-2023 Hepatitis B surface antibody level LDL CHOLESTEROL [facility] Start: 03-04-2023 Hepatitis B Vaccine (6 of 6 - Risk Dialysis Recombivax 3-dose series) Hepatitis B Vaccine (6 of 6 - Risk Dialysis Recombivax 3-dose series) [facility] Start: 02-08-2023 Hepatitis C antibody, confirmatory test DILATED RETINAL EXAM [facility] Start: 01-21-2023 Influenza vaccination INFLUENZA (#1) [facility] Start: 12-06-2022 Hemoglobin A1c/Hemoglobin.total in Blood HBA1C [facility] Start: 09-06-2022 End: 11-06-2022 Hemoglobin A1c in Blood HGB A1C Lab Routine 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, without long-term current use of insulin (HCC) Expected: 09/06/2022, Expires: 11/06/2022 [facility] Work Phone: Comment on above: Expected: 09/06/2022, Expires: 3 Start: 09-05-2022 Hemoglobin A1c/Hemoglobin.total in Blood HBA1C [facility] Start: 09-02-2022 3 comp foot exam completed DIABETIC FOOT EXAM [facility] Start: 07-06-2022 COVID-19 VACCINE (4 - Additional dose for Len series) COVID-19 VACCINE (4 - Additional dose for Len series) [facility] Start: 06-07-2022 End: 08-07-2022 Comprehensive metabolic 2000 panel - Serum or Plasma [facility] Work Phone: Comment on above: Expected: 06/07/2022, Expires: 3 Start: 06-07-2022 End: 08-07-2022 Hemoglobin A1c in Blood [facility] Work Phone: Comment on above: Expected: 06/07/2022, Expires: 3 Start: 06-05-2022 Hemoglobin A1c/Hemoglobin.total in Blood HBA1C [facility] Start: 05-23-2022 ADVANCE DIRECTIVE DISCUSSION ADVANCE DIRECTIVE DISCUSSION [facility] Start: 02-25-2022 Hepatitis B surface antibody level LDL CHOLESTEROL [facility] Start: 01-21-2022 Influenza vaccination INFLUENZA (#1) [facility] Start: 12-05-2021 Hepatitis C antibody, confirmatory test DILATED RETINAL EXAM [facility] Start: 12-02-2021 Hemoglobin A1c/Hemoglobin.total in Blood HBA1C [facility] Start: 07-24-2021 COVID-19 VACCINE (3 - Booster for Len series) COVID-19 VACCINE (3 - Booster for Len series) [facility] Start: 05-23-2021 ADVANCE DIRECTIVE DISCUSSION ADVANCE DIRECTIVE DISCUSSION [facility] Start: 05-23-2021 DEPRESSION ASSESSMENT DEPRESSION ASSESSMENT [facility] Start: 05-21-2021 COVID-19 VACCINE (3 - Booster for Len series) COVID-19 VACCINE (3 - Booster for Len series) [facility] Start: 05-12-2017 End: 05-12-2017 Appointment Appointment [facility] Work Phone: Start: 10-27-2016 End: 10-27-2016 Appointment Appointment [facility] Work Phone: Start: 10-27-2016 End: 10-27-2016 Echocardiography Echocardiogram (complete) [facility] Work Phone: Start: 10-27-2016 End: 10-27-2016 Electrocardiogram, complete EKG (In office) [facility] Work Phone: Start: 10-27-2016 End: 10-27-2016 Follow Up Appt 6 months Follow Up Appt 6 months [facility] Work Phone: Start: 10-27-2016 End: 10-27-2016 MMM MMM [facility] Work Phone: Start: 10-27-2016 End: 10-27-2016 Nuclear stress test -Lexiscan Nuclear stress test -Lexiscan [facility] Work Phone: Start: 2012 RSV Vaccine (1 - 1-dose 75+ series) RSV Vaccine (1 - 1-dose 75+ series) [facility] Start: 1997 RSV Vaccine (1 - 1-dose 60+ series) RSV Vaccine (1 - 1-dose 60+ series) [facility] Start: 1987 SHINGRIX VACCINE (1 of 2) SHINGRIX VACCINE (1 of 2) [facility] Start: 1956 SHINGRIX VACCINE (1 of 2) SHINGRIX VACCINE (1 of 2) [facility] Start: 1955 Anxiety Screening Anxiety Screening [facility] Start: 1955 Depression Screening Depression Screening [facility] Patient Education [facility] Work Phone: Patient referral [facility] Work Phone: Referral for further care [facility] Immunizations Immunization Date Immunization Notes Care Provider David granger 03-15-2024 influenza, injectabl e, quadrivalent, preservative free Dr. Jean Yan MD Work Phone: [facility] 02-21-2023 COVID-19 vaccine, ag e 12+ yr, season (PFIZER-BIONTECH) Husam Yan MD Work Phone: [facility] 02-21-2023 influenza (HD-IIV4) vaccine, age 65+ yr, high dose, quadrivalent, PF (FLUZONE HIGH-DOSE) Husam Yan MD Work Phone: [facility] 02-21-2023 influenza virus vaccine, unspecified formulation JEAN PIERRE ARREAGA MD [facility] 02-21-2023 SARS-CoV-2 (COVID-19 ) [id number] JEAN PIERRE ARREAGA MD [facility] Comment on above: Result Comment: 2023: [id number] 03-05-2022 COVID-19 booster vaccine, age 12+ yr, bivalent (PFIZER-BIONTECH) Husam Yan MD Work Phone: [facility] 03-04-2022 Hepatitis B vaccine (recombinant), CpG adjuvanted Husam Yan MD Work Phone: [facility] Work Phone: 02-25-2022 influenza, high-dose , quadrivalent vaccine (FLUZONE HIGH DOSE QUADRIVALENT) Husam Yan MD Work Phone: [facility] Work Phone: 03-26-2021 SARS-CoV-2 (COVID-19 ) mRNA-1273 vaccine JEAN PIERRE ARREAGA MD [facility] 02-17-2021 influenza, high-dose , quadrivalent vaccine (FLUZONE HIGH DOSE QUADRIVALENT) Husam Yan MD Work Phone: [facility] 12-30-2020 Hepatitis B vaccine (recombinant), CpG adjuvanted Husam Yna MD Work Phone: [facility] 10-02-2020 Hepatitis B vaccine (recombinant), CpG adjuvanted Husam Yan MD Work Phone: [facility] 07-31-2020 COVID-19 vaccine (LEN) Husam Yan MD Work Phone: [facility] Comment on above: Result Comment: 2023: [id number] 07-01-2020 hepatitis B vaccine, adult dosage Husam Yan MD Work Phone: [facility] 06-03-2020 hepatitis B vaccine, adult dosage Husam Yan MD Work Phone: [facility] 04-19-2020 influenza virus vaccine, unspecified formulation JEAN PIERRE ARREAGA MD [facility] 04-19-2020 influenza, injectabl e, quadrivalent, preservative free Dr. Jean Yan MD Work Phone: [facility] 04-19-2020 influenza, seasonal, injectable Dr. Jean Yan Work Phone: [facility] Work Phone: 04-19-2020 influenza, seasonal, injectable, preservative free Husam Yan MD Work Phone: [facility] Work Phone: 02-28-2019 influenza virus vaccine, unspecified formulation JEAN PIERRE ARREAGA MD [facility] 02-28-2019 influenza, high dose seasonal, preservative-free Husam Yan MD Work Phone: [facility] 06-12-2014 pneumococcal conjuga te vaccine, 13 valent Husam Yan MD Work Phone: [facility] 02-20-2011 influenza virus vaccine, unspecified formulation Husam Yan MD Work Phone: [facility] Work Phone: 02-14-2009 influenza virus vaccine, unspecified formulation Husam Yan MD Work Phone: [facility] Work Phone: 11-01-2007 diphtheria and tetan us toxoids, adsorbed for pediatric use Husam Yan MD Work Phone: [facility] Work Phone: 05-08-2007 influenza virus vaccine, unspecified formulation Husam Yan MD Work Phone: [facility] Work Phone: 03-28-2006 influenza virus vaccine, unspecified formulation Husam Yan MD Work Phone: [facility] 03-04-2006 pneumococcal polysaccharide vaccine, 23 valent Husam Yan MD Work Phone: [facility] Work Phone: Payers Date Payer Category Payer Self-pay [id number] 2021 Medicare HUMANA MEDICARE HUMANA MEDICARE PPO [id number] 2021-Present [phone] [id number] 2017 Medicare [id number] 2017 Medicare (Managed Care) HUMANA M EDICARE [id number] 2012 Medicare [id number] 1935 Unknown [id number] 2.16.840.1.132150.3.579. 2.627 Unknown SELF PAY INSURANCE [id number] Unknown [id number] 2.16.840.1.157757.3.579. 2.462 Unknown [id number] 2.16.840.1.383899.3.579. 2.462 Unknown [id number] 2.16.840.1.571934.3.579. 2.462 Unknown [id number] 2.16.840.1.864267.3.579. 2.462 Unknown [id number] 2.16.840.1.781001.3.579. 2.462 Unknown [id number] 2.16.840.1.334893.3.579. 2.462 Unknown [id number] 2.16.840.1.575378.3.579. 2.462 Unknown [id number] 2.16.840.1.320972.3.579. 2.462 Unknown [id number] 2.16.840.1.077664.3.579. 2.462 Unknown [id number] 2.16.840.1.720641.3.579. 2.462 Unknown [id number] 2.16.840.1.697403.3.579. 2.462 Unknown [id number] 2.16.840.1.892713.3.579. 2.462 Unknown [id number] 2.16.840.1.791287.3.579. 2.462 Unknown [id number] 2.16.840.1.404429.3.579. 2.462 Unknown [id number] 2.16.840.1.105312.3.579. 2.462 Unknown [id number] 2.16.840.1.566480.3.579. 2.462 Unknown [id number] 2.16.840.1.247992.3.579. 2.462 Unknown [id number] 2.16.840.1.426829.3.579. 2.462 Unknown [id number] 2.16.840.1.829268.3.579. 2.462 Unknown [id number] 2.840.1.214729.3.579. 2.462 Unknown [id number] 2.840.1.905267.3.579. 2.462 Unknown [id number] 2.840.1.532352.3.579. 2.462 Unknown [id number] 2.840.1.569034.3.579. 2.462 Unknown [id number] 2.840.1.928080.3.579. 2.462 Unknown [id number] 2.840.1.809315.3.579. 2.462 Unknown [id number] 2.840.1.009744.3.579. 2.462 Unknown [id number] 2.840.1.597988.3.579. 2.462 Unknown [id number] 2.840.1.403628.3.579. 2.462 Unknown [id number] 2.840.1.030503.3.579. 2.462 Unknown [id number] 2.840.1.834749.3.579. 2.462 Unknown [id number] 2.840.1.791780.3.579. 2.462 Unknown [id number] 2.840.1.830573.3.579. 2.462 Unknown [id number] 2.16.840.1.706495.3.579. 2.462 Unknown [id number] 2.16.840.1.437475.3.579. 2.462 Unknown [id number] 2.16.840.1.039014.3.579. 2.462 Unknown [id number] 2.16.840.1.792656.3.579. 2.462 Unknown [id number] 2.16.840.1.676505.3.579. 2.462 Unknown [id number] 2.16.840.1.566740.3.579. 2.462 Unknown [id number] 2.16.840.1.712301.3.579. 2.462 Unknown [id number] 2.16.840.1.868579.3.579. 2.462 Unknown [id number] 2.16.840.1.061626.3.579. 2.462 Unknown [id number] 2.16.840.1.211943.3.579. 2.462 Unknown [id number] 2.16.840.1.950198.3.579. 2.462 Unknown [id number] 2.16.840.1.903749.3.579. 2.462 Unknown [id number] 2.16.840.1.389676.3.579. 2.462 Unknown [id number] 2.16.840.1.285039.3.579. 2.462 Unknown [id number] 2.16.840.1.812949.3.579. 2.462 Unknown [id number] 2.16.840.1.183217.3.579. 2.462 Unknown [id number] 2.16.840.1.255106.3.579. 2.462 Unknown [id number] 2.16.840.1.058079.3.579. 2.462 Unknown [id number] 2.16.840.1.659888.3.579. 2.462 Unknown [id number] 2.16.840.1.247510.3.579. 2.462 Unknown [id number] 2.16.840.1.014968.3.579. 2.462 Unknown [id number] 2.16.840.1.307632.3.579. 2.462 Unknown [id number] 2.16.840.1.426041.3.579. 2.462 Unknown [id number] 2.16.840.1.331363.3.579. 2.462 Unknown [id number] 2.16.840.1.105992.3.579. 2.462 Unknown [id number] 2.16.840.1.199051.3.579. 2.462 Unknown [id number] 2.16.840.1.605973.3.579. 2.462 Unknown [id number] 2.16.840.1.133716.3.579. 2.462 Unknown [id number] 2.16.840.1.654455.3.579. 2.462 Unknown [id number] 2.16.840.1.773042.3.579. 2.462 Unknown [id number] 2.16.840.1.894127.3.579. 2.462 Unknown [id number] 2.16.840.1.299015.3.579. 2.462 Unknown [id number] 2.16.840.1.040889.3.579. 2.462 Unknown [id number] 2.16.840.1.191594.3.579. 2.462 Unknown [id number] 2.16.840.1.418117.3.579. 2.462 Unknown [id number] 2.16.840.1.697426.3.579. 2.462 Unknown [id number] 2.16.840.1.526807.3.579. 2.462 Unknown [id number] 2.16.840.1.413845.3.579. 2.462 Unknown [id number] 2.16.840.1.645832.3.579. 2.462 Unknown [id number] 2.16.840.1.700645.3.579. 2.462 Unknown [id number] 2.16.840.1.970642.3.579. 2.462 Unknown [id number] 2.16.840.1.871729.3.579. 2.462 Unknown [id number] 2.16.840.1.958609.3.579. 2.462 Unknown [id number] 2.16.840.1.935331.3.579. 2.462 Unknown [id number] 2.16.840.1.058400.3.579. 2.462 Unknown [id number] 2.16.840.1.201684.3.579. 2.462 Unknown [id number] 2.16.840.1.285262.3.579. 2.462 Unknown [id number] 2.16.840.1.975508.3.579. 2.462 Unknown [id number] 2.16.840.1.277673.3.579. 2.462 Unknown [id number] 2.16.840.1.662584.3.579. 2.462 Unknown [id number] 2.16.840.1.786692.3.579. 2.462 Unknown [id number] 2.16.840.1.121453.3.579. 2.462 Unknown [id number] 2.16.840.1.475090.3.579. 2.462 Unknown [id number] 2.16.840.1.711782.3.579. 2.462 Unknown [id number] 2.16.840.1.548005.3.579. 2.462 Unknown [id number] 2.16.840.1.315457.3.579. 2.462 Unknown [id number] 2.16.840.1.978857.3.579. 2.462 Unknown [id number] 2.16.840.1.807444.3.579. 2.462 Unknown [id number] 2.16.840.1.947259.3.579. 2.462 Unknown [id number] 2.16.840.1.442018.3.579. 2.462 Unknown [id number] 2.16.840.1.270345.3.579. 2.462 Unknown [id number] 2.16.840.1.790825.3.579. 2.462 Unknown [id number] 2.16840.1.570375.3.579. 2.462 Unknown [id number] 2.16.840.1.473343.3.579. 2.462 Unknown [id number] 2.840.1.110483.3.579. 2.462 Unknown [id number] 2.16840.1.402623.3.579. 2.462 Unknown [id number] 2.16840.1.685098.3.579. 2.462 Unknown [id number] 2.16.840.1.197409.3.579. 2.462 Unknown [id number] 2.16840.1.515921.3.579. 2.462 Unknown [id number] 2.16840.1.333229.3.579. 2.462 Unknown [id number] 2.16.840.1.971327.3.579. 2.462 Unknown [id number] 2.16.840.1.541694.3.579. 2.462 Unknown [id number] 2.16.840.1.301026.3.579. 2.462 Unknown [id number] 2.16.840.1.798242.3.579. 2.462 Unknown [id number] 2.16840.1.932432.3.579. 2.462 Unknown [id number] 2.16.840.1.360952.3.579. 2.462 Unknown [id number] 2.16.840.1.529802.3.579. 2.462 Unknown [id number] 2.16.840.1.045747.3.579. 2.462 Unknown [id number] 2.16.840.1.936071.3.579. 2.462 Unknown [id number] 2.16.840.1.226103.3.579. 2.462 Unknown [id number] 2.16.840.1.758623.3.579. 2.462 Unknown [id number] 2.16.840.1.218217.3.579. 2.462 Social History Date Type Detail Facility Start: 07-25-2017 End: 03-05-2022 Tobacco smoking status NHIS Ex-smoker [facility] History of tobacco use Cigar Smoker [facility] Start: 07-25-2017 End: 03-05-2022 Tobacco use and exposure Smokeless tobacco non-user [facility] Start: 07-15-2021 End: 04-14-2024 Alcohol intake Current drinker of alcohol (finding) [facility] Start: 07-15-2021 End: 12-06-2022 Alcohol intake [facility] Work Phone: Start: 11-18-2016 History SDOH Alcohol Comment rarely [facility] Start: 04-28-2017 Tobacco Comment [facility]asionally [facility] Start: 1935 Sex Assigned At Not on file C [facility] Start: 02-02-2021 End: 03-05-2022 Exposure to SARS-CoV-2 (event) Not sure [facility] Start: 11-06-2021 Tobacco smoking stat [facility] Unknown if ever smoked [facility] Work Phone: Start: 04-18-2020 None [facility] Start: 08-28-2020 Spouse/ Signif icant Other [facility] Start: 09-26-2020 Non-smoker [facility] Start: 1935 Sex Assigned At Male A [facility] History of tobacco use Current smoker [facility] Start: 12-06-2022 End: 05-25-2023 Tobacco use panel [facility] Work Phone: Adult Depression Screening Assessment 0 [facility] Work Phone: Start: 08-28-2024 Tobacco smoking stat us WVIS Never smoked tobacco (finding) [facility] Medical Equipment Procedure Code Equipment Code Equipment Original Text Equipment Identifier Dates Insertion, catheter, hemodialysis CATHETER, CVD PLNDRME 19CM FDA Start: 05-01-2020 Insertion, catheter, hemodialysis CATHETER,CVD PLNDRME 23CM FDA Start: 08-28-2020 Insertion, catheter, hemodialysis FDA Start: 05-01-2020 Insertion, catheter, hemodialysis FDA Start: 08-28-2020 Insertion, catheter, hemodialysis FDA Start: 05-01-2020 Insertion, catheter, hemodialysis FDA Start: 08-28-2020 Insertion, catheter, hemodialysis FDA Start: 05-01-2020 Insertion, catheter, hemodialysis FDA Start: 08-28-2020 Insertion, catheter, hemodialysis FDA Start: 05-01-2020 Insertion, catheter, hemodialysis FDA Start: 08-28-2020 Creation, AV fistula SUTURE,LIGA CLIP MED [id number] FDA Start: 10-01-2020 Creation, AV fistula SUTURE,LIGA CLIP SM [id number]-100 FDA Start: 10-01-2020 Creation, AV fistula SUTURE,LIGA CLIP SM [id number] FDA Start: 10-01-2020 Creation, AV fistula SUTURE,LIGA CLIP SM [id number]-100 FDA Start: 10-01-2020 Creation, AV fistula FDA Star t: 10-01-2020 Creation, AV fistula FDA Star t: 10-01-2020 Creation, AV fistula FDA Star t: 10-01-2020 Creation, AV fistula FDA Star t: 10-01-2020 Creation, AV fistula FDA Star t: 10-01-2020 Creation, AV fistula FDA Star t: 10-01-2020 Creation, AV fistula FDA Star t: 10-01-2020 Creation, AV fistula FDA Star t: 10-01-2020 Creation, AV fistula FDA Star t: 10-01-2020 Creation, AV fistula FDA Star t: 10-01-2020 Creation, AV fistula FDA Star t: 10-01-2020 Creation, AV fistula FDA Star t: 10-01-2020 Creation, AV fistula FDA Star t: 10-01-2020 Creation, AV fistula FDA Star t: 10-01-2020 Creation, AV fistula FDA Star t: 10-01-2020 Creation, AV fistula FDA Star t: 10-01-2020 Amputation, above or below knee FDA Start: 08-29-2024 Amputation, above or below knee FDA Start: 08-29-2024 Amputation, above or below knee FDA Start: 08-29-2024 Amputation, above or below knee FDA Start: 08-29-2024 Amputation, above or below knee FDA Start: 08-29-2024 Amputation, above or below knee FDA Start: 08-29-2024 Amputation, above or below knee FDA Start: 08-29-2024 Amputation, above or below knee FDA Start: 08-29-2024 Amputation, above or below knee FDA Start: 08-29-2024 Amputation, above or below knee FDA Start: 08-29-2024 Amputation, above or below knee FDA Start: 08-29-2024 Amputation, above or below knee FDA Start: 08-29-2024 Amputation, above or below knee FDA Start: 08-29-2024 Amputation, above or below knee FDA Start: 08-29-2024 Amputation, above or below knee FDA Start: 08-29-2024 Amputation, above or below knee FDA Start: 08-29-2024 [id number], [id number], [id number], [id number], [id number], [id number], [id number], [id number] Start: 09-06-2011 End: 10-27-2022 Comment on above: Test blood sugar(s) 2x daily. Dx E11.65. Insulin: No. Test blood sugar(s) 2x daily. Dx: E11.65. Insulin: No Use one needle for e ach dose. 1x/day. 1 Each once daily. Test blood sugar(s) 2 times daily. Dx: Type 2 DM -E11.65 Insulin: No [id number], [id number], [id number] FDA Start: 04-28-2017 Comment on above: True Metrix Lancets. Test blood sugar(s) 2x daily. Dx: E11.65. Insulin: No True Metrix Test Str ips. Test blood sugar(s) 2x daily. Dx: E11.65. Insulin: No Goals Date Patient Goal Desired Activity /State Functional Status Date Assessment Result Facility 09-04-2024 Functional status Bedrest [facility] Work Phone: 09-03-2024 Functional status Well [facility] Work Phone: 07-20-2024 Functional status Bedrest [facility] Work Phone: 07-02-2024 Functional status Independent [facility] Work Phone: 09-08-2023 Functional Status Other: eye shield [facility] 09-08-2023 Functional Status Maintained [facility] 09-07-2023 Functional Status [facility] 09-26-2014 Are you deaf, or do you have serious difficulty hearing No 09/26/2014 8:15 AM Pooja Goins RN [facility] 09-26-2014 Are you blind, or do you have serious difficulty seeing, even when wearing glasses No 09/26/2014 8:15 AM Pooja Goins RN [facility] 09-26-2014 Do you have serious difficulty walking or climbing stairs No 09/26/2014 8:15 AM Pooja Goins RN [facility] 09-26-2014 Do you have difficul ty dressing or bathing No 09/26/2014 8:15 AM Pooja Goins RN [facility] 09-26-2014 Because of a physica l, mental, or emotional condition, do you have difficulty doing errands alone such as visiting a physician's office or shopping No 09/26/2014 8:15 AM Pooja Goins RN No [facility] Mental Status Date Assessment Result Facility 09-04-2024 Cognitive function Voice/Name [facility] Work Phone: 07-20-2024 Cognitive function Voice/Name [facility] Work Phone: 07-07-2024 Cognitive function Voice/Name [facility] Work Phone: 07-03-2024 Cognitive function Follows Commands;Drows y [facility] Work Phone: 07-02-2024 Cognitive function Appropriate;Cooperativ e [facility] Work Phone: 06-06-2024 Cognitive function Drowsy [facility] Work Phone: 06-06-2024 Cognitive function Voice/Name [facility] Work Phone: 09-08-2023 Mental Status Oriented x [facility] 09-26-2014 Because of a physica l, mental, or emotional condition, do you have serious difficulty concentrating, remembering, or making decisions No 09/26/2014 8:15 AM EDT Pooja Rai, ISABEL No [facility] Clinical Notes 12-19-2015 to 09-24-2024 Note Date & Type Note Facility 09-24-2024 Progress note Note Date/Time September 24, 2024 11:03a [facility] Medical Records Department [address] [place] [address] Progress Note - Surgery 09/24/24 1101 MR#: [id number] Acct: [id number] Name: PERLA THOMPSON Rep #:[id number] : 1935 89 From: Randal Damico MD PCP: Dr. Nando Wiggins MD Status:R EG RCR Location: Subjective Subjective Doing well. Here with son in law. No residual nerve pain or phantom limb pain inthe RLE s/p amputation 1 month ago. Objective Data Objective Data Vital Signs: Vital Signs Temp Pulse Resp BP 96.0 F L 44 L 16 121/40 H 09/24/24 10:09 09/24/24 10:09 09/24/24 10:09 09/24/24 10:09 Weight: 204 lb Body Mass Index (BMI) 31.9 Physical Exam Narrative Right lower extremity Suture line clean dry and intact with hola in place/no induration or fluid collections Assessment & Plan Assessment/Plan (1) Amputation of right lower extremity below knee: QUALIFIERS: Encounter type: subsequent encounter Qualified Code(s): S88.111D - Complete traumatic amputation at level between knee and ankle, right lower leg, subsequent encounter PLAN: Continue ABD for padding Continue Mirror Painter splint for knee extension and plan for stump forming with [place] eventual prosthesis at likely 3 months Plan from vascular is to follow-up in 2 weeks for staple removal. Agree with plan. Patient is not having any residual limb pain or phantom limb pain. Follow-up asneeded. Charges/Coding Procedures Integumentary 111xxx-113xx: 15330 Global Visit 09/24/24 1103 <Electronically signed by Randal Damico MD> Cosigner Signature (if applicable): CC: ~ Signed [facility] Work Phone: 1(517) 437-771604-11-2025 [facility]04-09-2025 [facility]02-28-2025 [facility] 07-13-2024 [facility]02-19-2025 NoteHNO ID: [id number] Author: HUSAM YAN MD Service: ? Author Type: Physician Type: Progress Notes Filed: 07/11/2024 14:47 Note Text: I am sorry to hear this. Thank you for the update. Let us know when discharged and we will see him back in the office 1-2 weeks after.[facility]02-19-2025 History of Present illness Narrative* Husam Yan MD - 07/11/2024 2:47 PM EST I am sorry to hear this. Thank you for the update. Let us know when discharged and we will see him back in the office 1-2 weeks after. * Pérez Walker MA - 07/11/2024 2:35 PM EST POPULATION HEALTH NAVIGATION OUTREACH Action/FYI spoke to pt's daughter to schedule wellness, follow up, hcc gap closure, diabetic retinal eye exam,ked/ uacr and hgba1c- not pended. Daughter declined scheduling she said that the patient is in a skilled nursing and that is why he hasn't come in- he had an amputation of his foot. msg sent to pcp to make him aware that he is in a skilled nursing Reason for Outreach Care Gap/HCC or Scheduling Wellness Visits Care Gaps due: Medicare Annual Wellness Visit Follow-up Appointment Diabetic Eye Exam HBA1C KED Patient Contacted: Spoke to patient/parent/or legal guardian Patient identified by name and : Yes Care Gap/HCC/Scheduling Wellness actions taken: Patient declined: Sent message to PCP office HCC related Navigation Signature: Pérez Walker MA July 11, 2024 2:35 PM [facility]25 NoteHNO ID: [id number] Author: PÉREZ WALKER MA Service: ? Author Type: Gis Application Developer Type: Progress Notes Filed: 07/12/2024 10:30 Note Text: POPULATION HEALTH NAVIGATION OUTREACH Action/FYI spoke to pt's daughter to schedule wellness, follow up, hcc gap closure, diabetic retinal eye exam, ked/ uacr and hgba1c- not pended. Daughter declined scheduling she said that the patient is in a skilled nursing and that is why he hasn't come in- he had an amputation of his foot. msg sent to pcp to make him aware that he is in a skilled nursing Reason for Outreach Care Gap/HCC or Scheduling Wellness Visits Care Gaps due: Medicare Annual Wellness Visit Follow-up Appointment Diabetic Eye Exam HBA1C KED Patient Contacted: Spoke to patient/parent/or legal guardian Patient identified by name and : Yes Care Gap/HCC/Scheduling Wellness actions taken: Patient declined: Sent message to PCP office HCC related Navigation Signature: Pérez Walker MA July 11, 2024 2:35 [facility]02-19-2025 NotePatient Outreach (NETNAV) PERLA THOMPSON ([id number]) 1935 M Date Time Provider Department 07/11/24 PÉREZ WALKERV During your visit today, we recorded the following information about you: Pérez Walker SHAHEEN 07/12/2024 10:30 AM Signed POPULATION HEALTH NAVIGATION OUTREACH Action/FYI spoke to pt's daughter to schedule wellness, follow up, hcc gap closure, diabetic retinal eye exam, ked/ uacr and hgba1c- not pended. Daughter declined scheduling she said that the patient is in a skilled nursing and that is why he hasn't come in- he had an amputation of his foot. msg sent to pcp to make him aware that he is in a skilled nursing Reason for Outreach Care Gap/HCC or Scheduling Wellness Visits Care Gaps due: Medicare Annual Wellness Visit Follow-up Appointment Diabetic Eye Exam HBA1C KED Patient Contacted: Spoke to patient/parent/or legal guardian Patient identified by name and : Yes Care Gap/HCC/Scheduling Wellness actions taken: Patient declined: Sent message to PCP office HCC related Navigation Signature: Pérezdeyanira Walker MA July 11, 2024 2:35 PM Husam Yan MD 07/11/2024 2:47 PM Signed I am sorry to hear this. Thank you for the update. Let us know when discharged and we will see him back in the office 1-2 weeks after. Allergies As of Date: 07/11/2024 Noted Allergy Reaction ACTOS (PIOGLITAZONE HCL) 10/04/2016 14 - Other: See Comments Comments: fatigue ATENOLOL 05/18/2010 8 - GI Upset Comments: 100 mg causes nausea JANUVIA (SITAGLIPTIN) 09/18/2013 14 - Other: See Comments Comments: Januvia 100mg dizziness, can tolerate 50mg OZEMPIC (SEMAGLUTIDE) 01/06/2024 8 - GI Upset Comments: Diarrhea ZOCOR (SIMVASTATIN) 01/02/2007 Comments: myalgias Date Reviewed: 04/14/2024 Reviewed by: Jordana Kramer MA - Fully Assessed Reason for Visit: Population Health Navigation Outreach [3910] Cmt: gabriele malagon Prescriptions as of 07/12/2024 - insulin glargine (LANTUS SOLOSTAR U-100 INSULIN) 100 unit/mL (3 mL) Inject 37 Units subcutaneously once daily. - torsemide (DEMADEX) 100 mg tablet TAKE 1 TABLET BY MOUTH ON NON DIALYSIS DAYS - flash glucose sensor (FREESTYLE GELACIO 2 SENSOR) kit 2 Each four times daily. - flash glucose scanning reader (FREESTYLE GELACIO 14 DAY READER) 1 Units four times daily. - blood sugar diagnostic (BLOOD GLUCOSE TEST) test strip Test blood sugar(s) 2 times daily. Dx: Type 2 DM -E11.65 Insulin: No - blood sugar diagnostic (ACCU-CHEK LISA PLUS TEST STRP) test strip Test blood sugar(s) 2x daily. Dx E11.65. Insulin: No. - mecobalamin (B12 ACTIVE ORAL) Take 1 tablet by mouth once daily. Every other day - Insulin [place], Disposable, (BD ULTRA-FINE SHAHEEN PEN NEEDLE) 32 gauge x " Use one needle for each dose. 1x/day. - lancets (FREESTYLE LANCETS) 28 gauge 1 Each once daily. - blood sugar diagnostic (BLOOD GLUCOSE TEST) test strip Test blood sugar(s) 2x daily. Dx: E11.65. Insulin: No - COMPOUNDED PRESCRIPTION True Metrix Test Strips. Test blood sugar(s) 2x daily. Dx: E11.65. Insulin: No - COMPOUNDED PRESCRIPTION True Metrix Lancets. Test blood sugar(s) 2x daily. Dx: E11.65. Insulin: No - cholecalciferol (VITAMIN D3) 5,000 unit tab Take 5,000 Units by mouth once daily. - Blood-Glucose Meter [facility] Dispense 1 kit. Dx: E11.65 - Aspirin 81 mg tab Take 1 tablet by mouth once daily. Take with food. - COMPOUNDED PRESCRIPTION Crill Oil, Take 1 tablet daily. 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] 09/26/2014 02/28/2020 Noncompliance of patient with dietary regimen [*07/07/2015 Type 2 diabetes mellitus with mild nonprolifera*12/19/2015 04/26/2016 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/26/2016 Chronic kidney disease (CKD), stage III (modera* 06/03/2022 LBBB (left bundle branch block) [I44.7] Mobitz (type) I (Wenckebach's) atrioventricular* Lower extremity edema [R60.0] 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* Chronic diastolic heart failure (HCC) [I50.32] 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 Secondary hyperparathyroidism of renal origin (*02/21/2023 Encounter Status:Closed by PÉREZ WALKER on 07/12/24[facility] 07-09-2024 Telephone encounter Note* Telephone Encounter - Radha Howe PSS - 07/09/2024 11:49 AM EST Prescription Refill Information The patient has been identified by name and date of : Yes Caregiver verified no other encounters exist for this prescription request: Yes Caregiver confirmed with patient/requestor that no other refills are due, in the near future, with this provider at this time: Yes The last office visit in the department: 03/28/2024 Does the patient have a future office visit with this provider/department: No Requested Prescriptions Pending Prescriptions Disp Refills insulin glargine (LANTUS SOLOSTAR U-100 INSULIN) 100 unit/mL (3 mL) 24 mL 1 Sig: Inject 37 Units subcutaneously once daily. RAY Roach July 09, 2024 11:51 AM [facility]02-17-2025 Miscellaneous Notes* Telephone Encounter - Radha Howe PSS - 07/09/2024 11:49 AM EST Prescription Refill Information The patient has been identified by name and date of : Yes Caregiver verified no other encounters exist for this prescription request: Yes Caregiver confirmed with patient/requestor that no other refills are due, in the near future, with this provider at this time: Yes The last office visit in the department: 03/28/2024 Does the patient have a future office visit with this provider/department: No Requested Prescriptions Pending Prescriptions Disp Refills insulin glargine (LANTUS SOLOSTAR U-100 INSULIN) 100 unit/mL (3 mL) 24 mL 1 Sig: Inject 37 Units subcutaneously once daily. RAY Roach July 09, 2024 11:51 AM documented in [facility]2025 [facility]02-10-2025 Evaluation note* Diagnosis Onset Date Resolution Status Admit Date End stage renal disease acute F ebruary 2024 12:56pm Acute hyperkalemia inactive 2024 12:56pm Other acute osteomyelitis, right ankle and foot acute July 112024 10:30am Other specified peripheral vascular diseases inactive July 11, 2024 10:30am End stage renal disease acute F ebruary 2024 5:48pm MRSA bacteremia acute July 13, 2024 5:48pm Cellulitis of right foot resolved July 13, 2024 5:48pm Cellulitis of right lower limb resol manish July 13, 2024 5:48pm Diabetic infection of right foot inactive July 13, 025 5:48pm Osteomyelitis of right foot resolved July 13, 2024 5:48pm Pain in right foot resolved 2024 5:48pm 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 July 13, 025 5:48pm Cutaneous abscess of right foot inac tive July 13, 2024 5:48pm Other specified peripheral vascular diseases inactive July 13, 2024 5:48pm PAD (peripheral artery disease) acut e August 20, 2024 10:30am Diabetic infection of right foot resolved August 20, 2024 10:30am Osteomyelitis of right foot resolved August 20, 2024 10:30am Wound, open, foot inactive July 232024 10:30am PAD (peripheral artery disease) acut e August 27, 2024 8:23am Diabetic infection of right foot resolved August 27, 2024 8:23am Osteomyelitis of right foot resolved August 27, 2024 8:23am Wound, open, foot inactive August 272024 8:23am Amputation of right lower extremity below knee acute August 29, 2024 1:06pm End stage renal disease acute A pril 2024 1:06pm Anemia of chronic disease chronic August 29, 2024 1:06pm 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 inactive August 29, 2024 1:06pm Wound, open, foot inactive August 292024 1:06pm Amputation of right lower extremity below knee acute September 24 9:58am Amputation of right lower extremity below knee acute October 03, 2 025 8:55am End stage renal disease acute M ay 2024 8:55am Amputation of right lower extremity below knee acute October 17, 2 025 10:05am AV fistula acute October 17, 2024 10:05am [facility] Work Phone: 1(304) 163-823301-29-2025 Evaluation note* Diagnosis Onset Date Resolution Status Admit Date Diabetic ulcer of left foot acute June 20, 2024 8:25am PAD (peripheral artery disease) acute June 20 8:25am Status post transmetatarsal amputation of right foot acute June 20, 2024 8:25am Diabetic ulcer of right foot noneact jer[place]o June 20, 2024 8:25am End stage renal disease acute F 2024 12:56pm Acute hyperkalemia inactive 2024 12:56pm Other acute osteomyelitis, right ankle and foot acute July 112024 10:30am Other specified peripheral vascular diseases inactive July 11, 2024 10:30am End stage renal disease acute F 2024 5:48pm MRSA bacteremia acute July 13, 2024 5:48pm Cellulitis of right foot resolved July 13, 2024 5:48pm Cellulitis of right lower limb resol manish July 13, 2024 5:48pm Diabetic infection of right foot inactive July 13, 025 5:48pm Osteomyelitis of right foot resolved July 13, 2024 5:48pm Pain in right foot resolved 2024 5:48pm 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 July 13, 2 025 5:48pm Cutaneous abscess of right foot inactive July 13, 2 025 5:48pm Other specified peripheral vascular diseases inactive July 13, 2024 5:48pm PAD (peripheral artery disease) acute August 20, 2024 10:30am Diabetic infection of right foot resolved August 20, 2024 10:30am Osteomyelitis of right foot resolved August 20, 2024 10:30am Wound, open, foot inactive July 232024 10:30am PAD (peripheral artery disease) acute August 27, 2024 8:23am Diabetic infection of right foot resolved August 27, 2024 8:23am Osteomyelitis of right foot resolved August 27, 2024 8:23am Wound, open, foot inactive August 272024 8:23am Amputation of right lower extremity below knee acute August 29, 2024 1:06pm End stage renal disease acute A pril 2024 1:06pm Anemia of chronic disease chronic August 29, 2024 1:06pm 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 Author Type: Gis Application Developer Type: Progress Notes Filed: 06/11/2024 13:49 Note Text: POPULATION HEALTH NAVIGATION OUTREACH Action/FYI Care gaps due: AWV DIABETIC RETINAL EXAM No answer, lvm. Reason for Outreach Care Gap/HCC or Scheduling Wellness Visits Care Gaps due: Medicare Annual Wellness Visit Diabetic Eye Exam Patient Contacted: Unable or unnecessary to reach patient: Left message HCC related Navigation Signature: Danilo Butterfield MA June 11, 2024 1:49 [facility]01-20-2025 History of Present illness Narrative* Danilo Butterfield MA - 06/11/2024 1:49 PM EST POPULATION HEALTH NAVIGATION OUTREACH Action/FYI Care gaps due: AWV DIABETIC RETINAL EXAM No answer, lvm. Reason for Outreach Care Gap/HCC or Scheduling Wellness Visits Care Gaps due: Medicare Annual Wellness Visit Diabetic Eye Exam Patient Contacted: Unable or unnecessary to reach patient: Left message [facility] related Navigation Signature: Danilo Butterfield MA June 11, 2024 1:49 PM documented in this encounterHighland [facility] Hospital01-[facility]-2025 NotePatient Outreach (NETNAV) PERLA THOMPSON ([id number]) 1935 M Date Time Provider Department 06/11/24 DANILO BUTTERFIELD NETPIERREV During your visit today, we recorded the following information about you: Danilo Butterfield MA 06/11/2024 1:49 PM Signed POPULATION HEALTH NAVIGATION OUTREACH Action/FYI Care gaps due: AWV DIABETIC RETINAL EXAM No answer, lvm. Reason for Outreach Care Gap/HCC or Scheduling Wellness Visits Care Gaps due: Medicare Annual Wellness Visit Diabetic Eye Exam Patient Contacted: Unable or unnecessary to reach patient: Left message [facility] related Navigation Signature: Danilo Butterfield MA June 11, 2024 1:49 PM Allergies As of Date: 06/11/2024 Noted Allergy Reaction ACTOS (PIOGLITAZONE HCL) 10/04/2016 14 - Other: See Comments Comments: fatigue ATENOLOL 05/18/2010 8 - GI Upset Comments: 100 mg causes nausea JANUVIA (SITAGLIPTIN) 09/18/2013 14 - Other: See Comments Comments: Januvia 100mg dizziness, can tolerate 50mg OZEMPIC (SEMAGLUTIDE) 01/06/2024 8 - GI Upset Comments: Diarrhea ZOCOR (SIMVASTATIN) 01/02/2007 Comments: myalgias Date Reviewed: 04/14/2024 Reviewed by: Jordana Kramer MA - Fully Assessed Reason for Visit: Population Health Navigation Outreach [3910] Cmt: Gabriele malagon Prescriptions as of 06/11/2024 - torsemide (DEMADEX) 100 mg tablet TAKE 1 TABLET BY MOUTH ON NON DIALYSIS DAYS - insulin glargine (LANTUS SOLOSTAR U-100 INSULIN) 100 unit/mL (3 mL) Inject 37 Units subcutaneously once daily. - flash glucose sensor (FREESTYLE GELACIO 2 SENSOR) kit 2 Each four times daily. - flash glucose scanning reader (FREESTYLE GELACIO 14 DAY READER) 1 Units four times daily. - blood sugar diagnostic (BLOOD GLUCOSE TEST) test strip Test blood sugar(s) 2 times daily. Dx: Type 2 DM -E11.65 Insulin: No - blood sugar diagnostic (ACCU-CHEK LISA PLUS TEST STRP) test strip Test blood sugar(s) 2x daily. Dx E11.65. Insulin: No. - mecobalamin (B12 ACTIVE ORAL) Take 1 tablet by mouth once daily. Every other day - Insulin Perryman, Disposable, (BD ULTRA-FINE SHAHEEN PEN NEEDLE) 32 gauge x 532" Use one needle for each dose. 1x/day. - lancets (FREESTYLE LANCETS) 28 gauge 1 Each once daily. - blood sugar diagnostic (BLOOD GLUCOSE TEST) test strip Test blood sugar(s) 2x daily. Dx: E11.65. Insulin: No - COMPOUNDED PRESCRIPTION True Metrix Test Strips. Test blood sugar(s) 2x daily. Dx: E11.65. Insulin: No - COMPOUNDED PRESCRIPTION True Metrix Lancets. Test blood sugar(s) 2x daily. Dx: E11.65. Insulin: No - cholecalciferol (VITAMIN D3) 5,000 unit tab Take 5,000 Units by mouth once daily. - Blood-Glucose Meter [facility] Dispense 1 kit. Dx: E11.65 - Aspirin 81 mg tab Take 1 tablet by mouth once daily. Take with food. - COMPOUNDED PRESCRIPTION Crill Oil, Take 1 tablet daily. 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] 09/26/2014 02/28/2020 Noncompliance of patient with dietary regimen [*07/07/2015 Type 2 diabetes mellitus with mild nonprolifera*12/19/2015 04/26/2016 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/26/2016 Chronic kidney disease (CKD), stage III (modera* 06/03/2022 LBBB (left bundle branch block) [I44.7] Mobitz (type) I (Wenckebach's) atrioventricular* Lower extremity edema [R60.0] 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* Chronic diastolic heart failure (HCC) [I50.32] 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 Secondary hyperparathyroidism of renal origin (*02/21/2023 Encounter Status:Closed by DANILO BUTTERFIELD on 06/11/24[facility] 06-06-2024 Evaluation note* Diagnosis Onset Date Resolution Status Admit Date Other acute osteomyelitis, right ankle and foot acute May 5:57am Other acute postprocedural pain acute June 06 5:57am Other specified peripheral vascular diseases inactive June 06, 2024 5:57am Other acute osteomyelitis, right ankle and foot acute May 11:15am Other specified peripheral vascular diseases inactive June 19, 2024 11:15am Diabetic ulcer of left foot acute June 20, 2024 8:25am PAD (peripheral artery disease) acute June 20 8:25am Status post transmetatarsal amputation of right foot acute June 20, 2024 8:25am Diabetic ulcer of right foot noneact [place] June 20, 2024 8:25am End stage renal disease acute F ebruary 2024 12:56pm Acute hyperkalemia inactive 2024 12:56pm Other acute osteomyelitis, right ankle and foot acute July 112024 10:30am Other specified peripheral vascular diseases inactive July 11, 2024 10:30am End stage renal disease acute F ebruary 2024 5:48pm MRSA bacteremia acute July 13, 2024 5:48pm Cellulitis of right foot resolved July 13, 2024 5:48pm Cellulitis of right lower limb resol manish July 13, 2024 5:48pm Diabetic infection of right foot inactive July 13, 025 5:48pm Osteomyelitis of right foot resolved July 13, 2024 5:48pm Pain in right foot resolved 2024 5:48pm 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 July 13, 025 5:48pm Cutaneous abscess of right foot inactive July 13, 025 5:48pm Other specified peripheral vascular diseases inactive July 13, 2024 5:48pm PAD (peripheral artery disease) acute August 20, 2024 10:30am Diabetic infection of right foot resolved August 20, 2024 10:30am Osteomyelitis of right foot resolved August 20, 2024 10:30am Wound, open, foot inactive July 232024 10:30am PAD (peripheral artery disease) acute August 27, 2024 8:23am Diabetic infection of right foot resolved August 27, 2024 8:23am Osteomyelitis of right foot resolved August 27, 2024 8:23am Wound, open, foot inactive August 272024 8:23am Amputation of right lower extremity below knee acute August 29, 2024 1:06pm End stage renal disease acute A pril 2024 1:06pm Anemia of chronic disease chronic August 29, 2024 1:06pm 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 inactive August 29, 2024 1:06pm Wound, open, foot inactive August 292024 1:06pm Amputation of right lower extremity below knee acute September 24 9:58am [facility] Work Phone: 1(920) 167-283301-15-2025 Evaluation note* Diagnosis Onset Date Resolution Status Admit Date Other acute osteomyelitis, right ankle and foot acute May 5:57am Other acute postprocedural pain acute June 06 5:57am Other specified peripheral vascular diseases inactive June 06, 2024 5:57am Other acute osteomyelitis, right ankle and foot acute May 11:15am Other specified peripheral vascular diseases inactive June 19, 2024 11:15am Diabetic ulcer of left foot acute June 20, 2024 8:25am PAD (peripheral artery disease) acute June 20 8:25am Status post transmetatarsal amputation of right foot acute June 20, 2024 8:25am Diabetic ulcer of right foot noneact [place] June 20, 2024 8:25am End stage renal disease acute F 2024 12:56pm Acute hyperkalemia inactive 2024 12:56pm Other acute osteomyelitis, right ankle and foot acute July 112024 10:30am Other specified peripheral vascular diseases inactive July 11, 2024 10:30am End stage renal disease acute F ebary 2024 5:48pm MRSA bacteremia acute July 13, 2024 5:48pm Cellulitis of right foot resolved July 13, 2024 5:48pm Cellulitis of right lower limb resol manish July 13, 2024 5:48pm Diabetic infection of right foot inactive July 13, 2 025 5:48pm Osteomyelitis of right foot resolved July 13, 2024 5:48pm Pain in right foot resolved 2024 5:48pm 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 July 13, 2 025 5:48pm Cutaneous abscess of right foot inactive July 13, 2 025 5:48pm Other specified peripheral vascular diseases inactive July 13, 2024 5:48pm PAD (peripheral artery disease) acute August 20, 2024 10:30am Diabetic infection of right foot resolved August 20, 2024 10:30am Osteomyelitis of right foot resolved August 20, 2024 10:30am Wound, open, foot inactive July 232024 10:30am PAD (peripheral artery disease) acute August 27, 2024 8:23am Diabetic infection of right foot resolved August 27, 2024 8:23am Osteomyelitis of right foot resolved August 27, 2024 8:23am Wound, open, foot inactive August 272024 8:23am Amputation of right lower extremity below knee acute August 29, 2024 1:06pm End stage renal disease acute A pril 2024 1:06pm Anemia of chronic disease chronic August 29, 2024 1:06pm 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 If they do we can open a new TE. [facility]01-14-2025 Miscellaneous Notes* Telephone Encounter - aCtalina Ruth RN - 06/05/2024 3:25 PM EST Closing encounter as Pt and family have not called back in. If they do we can open a new TE. * Telephone Encounter - Alanna Veloz LPN - 05/31/2024 2:18 PM EST Phoned son-in-law, Jey, and explained to him we will still need patient to call in and give permission to speak to he or patient's daughter unless patient is deemed legally or medically unable to make decisions for himself in regards to medical info/access records. Also advised of PCP's message below he voiced understanding. He stated he will have patient and patient's daughter daughter call in and give triage nurse the ok/information. Alanna Veloz LPN * Telephone Encounter - Husam Yan MD - 05/31/2024 12:42 PM EST He will still need physical exam and possibly labs before I would be able to clear him. If he is inthe skilled nursing with Dr. Wiggins, they should have access to his labs and might be easier for them to see and clear him. If unable or unwilling, I would need to see him in our office. * Telephone Encounter - Mary Hodges LPN - 05/31/2024 11:41 AM EST Son dropped off copies of POA and Living Will forms at this time. Mary Hodges LPN * Telephone Encounter - Deborah Bedoya LPN - 05/30/2024 4:52 PM EST Son in law calling in to advise office that Cardiology Dr. Yunior Tong from the [facility] has signed off on medical clearance and will be faxing forms to Dr. Cat office for review for clearance(He also faxed these to the [facility]). Son in law Jey made aware that POA paperwork is still not in the computer and needs to be brought in to discuss patients medical. Jey will drop off tomorrow. Paperwork received, placed on PCP desk for review. Jey requesting call back tomorrow from [facility] after PCP reviews paperwork. Deborah Bedoya LPN * Telephone Encounter - Deborah Bedoya LPN - 05/30/2024 1:51 PM EST Telephone call placed to patients son in law Jey. Made aware patient would need to be seen in office or could utilize nursing homes Dr. Mauricio understanding. Deborah Bedoya LPN * Telephone Encounter - Husam Yan MD - 05/30/2024 11:13 AM EST If he is a resident at the skilled nursing, it would be most convenient for the patient to have Dr. Wiggins do his pre op there. If they are unable or unwilling, he would need OV with us before I could clear him. * Telephone Encounter - Alanna Veloz LPN - 05/30/2024 10:55 AM EST Phoned patients son, Jey back to advise if patient is at [facility] and on a skilled unit under Dr Wiggins's care we recommend she fill the clearance form out. Jey explained that Dr Wiggins rounds on Tuesdays when patient is at the wound clinic for his weekly debridments. Explained to son that wetypically need to obtain labs and EKG and patient would need to be seen in office. He stated patient has a home care aide and wondered if they sign off if Dr Yan could order appropriate labs and ifok then sign off on surgical clearance? They are struggling to keep patient in skilled care due to Andrea reports as it shows patient isnt getting enough hours but patient is out frequently due to dialysis 3 days per week in additions to wound clinic and other procedures. They are trying to avaoid using the ER for amputation but hand riveter has advised that would be easier than getting the clearance. Please advise. Alanna Veloz LPN * Telephone Encounter - Catalina Ruth RN - 05/30/2024 10:35 AM EST Jey Pts son in law called in and reports Pt is now in a [facility]. He [facility] big toe and the ball of his foot in April at the ER. He states they want to remove the rest of the toes as soon as they can, but they don't want to have to do it in the ER. He states that surgical clinical reviewer for this provider is going to be sending over a surgical release for for the providers office to sign. Pt was last seen by Lauren Podlogar SMELTER LINER on 03/28/24, he had an A1C and CMP done. I don't know if Pt would been to come in and be seen again before forms could be signed. Forms are going to be sent to office Attn: Alanna and Deborah. Please call and advise if anything else will need to be done. [facility] Telephone encounter Note * Telephone Encounter - Alanna Veloz LPN - 05/31/2024 2:18 PM EST Phoned son-in-law, Jey, and explained to him we will still need patient to call in and give permission to speak to he or patient's daughter unless patient is deemed legally or medically unable to make decisions for himself in regards to medical info/access records. Also advised of PCP's message below he voiced understanding. He stated he will have patient and patient's daughter daughter call in and give triage nurse the ok/information. Alanna Veloz LPN [facility]01-09-2025 Telephone encounter Note* Telephone Encounter - Husam Yan MD - 05/31/2024 12:42 PM EST He will still need physical exam and possibly labs before I would be able to clear him. If he is inthe skilled nursing with Dr. Wiggins, they should have access to his labs and might be easier for them to see and clear him. If unable or unwilling, I would need to see him in our office. [facility]01-09-2025 Telephone encounter Note* Telephone Encounter - Mary Hodges LPN - 05/31/2024 11:41 AM EST Son dropped off copies of POA and Living Will forms at this time. Mary Hodges LPN [facility]01-08-2025 Telephone encounter Note* Telephone Encounter - Deborah Bedoya LPN - 05/30/2024 4:52 PM EST Son in law calling in to advise office that Cardiology Dr. Yuniro Tong from the [facility] has signed off on medical clearance and will be faxing forms to Dr. Cat office for review for clearance(He also faxed these to the foot and ankle clinic). Son in law Jey made aware that POA paperwork is still not in the computer and needs to be brought in to discuss patients medical. Jey will drop off tomorrow. Paperwork received, placed on PCP desk for review. Jey requesting call back tomorrow from Alanna after PCP reviews paperwork. Deborah Bedoya LPN [facility]01-08-2025 Telephone encounter Note* Telephone Encounter - Deborah Bedoya LPN - 05/30/2024 1:51 PM EST Telephone call placed to patients son in law Jey. Made aware patient would need to be seen in office or could utilize nursing homes Dr. Hang elias. Deborah Bedoya LPN [facility]01-08-2025 Telephone encounter Note* Telephone Encounter - Husam Yan MD - 05/30/2024 11:13 AM EST If he is a resident at the skilled nursing, it would be most convenient for the patient to have Dr. Wiggins do his pre op there. If they are unable or unwilling, he would need OV with us before I could clear him. [facility]01-08-2025 Telephone encounter Note* Telephone Encounter - Alanna Veloz LPN - 05/30/2024 10:55 AM EST Phoned patients son, Jey back to advise if patient is at [facility] and on a skilled unit under Dr Wiggins's care we recommend she fill the clearance form out. Jey explained that Dr Wiggins rounds on Tuesday mornings when patient is at the wound clinic for his weekly debridments. Explained to son that wetypically need to obtain labs and EKG and patient would need to be seen in office. He stated patient has a home care aide and wondered if they sign off if Dr Yan could order appropriate labs and ifok then sign off on surgical clearance? They are struggling to keep patient in skilled care due to Andrea reports as it shows patient isnt getting enough hours but patient is out frequently due to dialysis 3 days per week in additions to wound clinic and other procedures. They are trying to avaoid using the ER for amputation but hand riveter has advised that would be easier than getting the clearance. Please advise. Alanna Veloz LPN [facility]01-08-2025 Telephone encounter Note* Telephone Encounter - Catalina Ruth RN - 05/30/2024 10:35 AM EST Jey Pts son in law called in and reports Pt is now in a [facility]iary facility. He states [facility] his big toe and the ball of his foot in April at the ER. He states they want to remove the rest of the toes as soon as they can, but they don't want to have to do it in the ER. He states that surgical clinical reviewer for this provider is going to be sending over a surgical release for for the providers office to sign. Pt was last seen by Lauren Podlogar SMELTER LINER on 03/28/24, he had an A1C and CMP done. I don't know if Pt would been to come in and be seen again before forms could be signed. Forms are going to be sent to office Attn: Marilia. Please call and advise if anything else will need to be done. [facility]12-19-2024 [facility]12-13-2024 [facility]12-03-2024 [facility]12-02-2024 NoteHNO ID: [id number] Author: SRIDEVI MILLER MA Service: ? Author Type: Gis Application Developer Type: Progress Notes Filed: 04/23/2024 15:02 Note Text: POPULATION HEALTH NAVIGATION OUTREACH Action/FYI Contacted patient to schedule [employer] Annual Wellness Visit and care gaps 1st attempt: Left message with my direct number Topic Due (Y or N) Comments Medicare Wellness Y 2023 and 2024 PCP Follow up Mammogram Colorectal Cancer Screening A1C Due in 2024 Controlling BP Dilated Retinal Exam (ALICIA) Y Due 04/27/2024 KED (UACR and eGFR) HCC Y Flu Vaccine Reason for Outreach Care Gap/HCC or Scheduling Wellness Visits Care Gaps due: Medicare Annual Wellness Visit Diabetic Eye Exam Patient Contacted: Unable or unnecessary to reach patient: Left message HCC related Updated appointment notes Navigation Signature: Sridevi Miller MA April 23, 2024 2:[facility] History of Present illness Narrative* Sridevi Miller MA - 04/23/2024 2:35 PM EST POPULATION HEALTH NAVIGATION OUTREACH Action/FYI Contacted patient to schedule [employer] Annual Wellness Visit and care gaps 1st attempt: Left message with my direct number Topic Due (Y or N) Comments Medicare Wellness Y 2023 and 2024 PCP Follow up Mammogram Colorectal Cancer Screening A1C Due in 2024 Controlling BP Dilated Retinal Exam (ALICIA) Y Due 04/27/2024 KED (UACR and eGFR) HCC Y Flu Vaccine Reason for Outreach Care Gap/HCC or Scheduling Wellness Visits Care Gaps due: Medicare Annual Wellness Visit Diabetic Eye Exam Patient Contacted: Unable or unnecessary to reach patient: Left message HCC related Updated appointment notes Navigation Signature: Sridevi Miller MA April 23, 2024 2:35 PM documented in this encounterHigh[facility]12-[facility]-2024 NotePatient Outreach (NETNAV) PERLA THOMPSON ([id number]) 1935 M Date Time Provider Department 04/23/24 SRIDEVI MILLER During your visit today, we recorded the following information about you: Sridevi Miller MA 04/23/2024 3:02 PM Addendum POPULATION HEALTH NAVIGATION OUTREACH Action/FYI Contacted patient to schedule [employer] Annual Wellness Visit and care gaps 1st attempt: Left message with my direct number Topic Due (Y or N) Comments Medicare Wellness Y 2023 and 2024 PCP Follow up Mammogram Colorectal Cancer Screening A1C Due in 2024 Controlling BP Dilated Retinal Exam (ALICIA) Y Due 04/27/2024 KED (UACR and eGFR) HCC Y Flu Vaccine Reason for Outreach Care Gap/HCC or Scheduling Wellness Visits Care Gaps due: Medicare Annual Wellness Visit Diabetic Eye Exam Patient Contacted: Unable or unnecessary to reach patient: Left message HCC related Updated appointment notes Navigation Signature: Sridevi Miller MA April 23, 2024 2:35 PM Allergies As of Date: 04/23/2024 Noted Allergy Reaction ACTOS (PIOGLITAZONE HCL) 10/04/2016 14 - Other: See Comments Comments: fatigue ATENOLOL 05/18/2010 8 - GI Upset Comments: 100 mg causes nausea JANUVIA (SITAGLIPTIN) 09/18/2013 14 - Other: See Comments Comments: Januvia 100mg dizziness, can tolerate 50mg OZEMPIC (SEMAGLUTIDE) 01/06/2024 8 - GI Upset Comments: Diarrhea ZOCOR (SIMVASTATIN) 01/02/2007 Comments: myalgias Date Reviewed: 04/14/2024 Reviewed by: Jordana Kramer MA - Fully Assessed Reason for Visit: Population Health Navigation Outreach [3910] Cmt: [employer] Prescriptions as of 04/23/2024 - torsemide (DEMADEX) 100 mg tablet TAKE 1 TABLET BY MOUTH ON NON DIALYSIS DAYS - insulin glargine (LANTUS SOLOSTAR U-100 INSULIN) 100 unit/mL (3 mL) Inject 37 Units subcutaneously once daily. - flash glucose sensor (FREESTYLE GELACIO 2 SENSOR) kit 2 Each four times daily. - flash glucose scanning reader (FREESTYLE GELACIO 14 DAY READER) 1 Units four times daily. - blood sugar diagnostic (BLOOD GLUCOSE TEST) test strip Test blood sugar(s) 2 times daily. Dx: Type 2 DM -E11.65 Insulin: No - blood sugar diagnostic (ACCU-CHEK LISA PLUS TEST STRP) test strip Test blood sugar(s) 2x daily. Dx E11.65. Insulin: No. - mecobalamin (B12 ACTIVE ORAL) Take 1 tablet by mouth once daily. Every other day - Insulin Perryman, Disposable, (BD ULTRA-FINE SHAHEEN PEN NEEDLE) 32 gauge x " Use one needle for each dose. 1x/day. - lancets (FREESTYLE LANCETS) 28 gauge 1 Each once daily. - blood sugar diagnostic (BLOOD GLUCOSE TEST) test strip Test blood sugar(s) 2x daily. Dx: E11.65. Insulin: No - COMPOUNDED PRESCRIPTION True Metrix Test Strips. Test blood sugar(s) 2x daily. Dx: E11.65. Insulin: No - COMPOUNDED PRESCRIPTION True Metrix Lancets. Test blood sugar(s) 2x daily. Dx: E11.65. Insulin: No - cholecalciferol (VITAMIN D3) 5,000 unit tab Take 5,000 Units by mouth once daily. - Blood-Glucose Meter [facility] Dispense 1 kit. Dx: E11.65 - Aspirin 81 mg tab Take 1 tablet by mouth once daily. Take with food. - COMPOUNDED PRESCRIPTION Crill Oil, Take 1 tablet daily. 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] 09/26/2014 02/28/2020 Noncompliance of patient with dietary regimen [*07/07/2015 Type 2 diabetes mellitus with mild nonprolifera*12/19/2015 04/26/2016 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/26/2016 Chronic kidney disease (CKD), stage III (modera* 06/03/2022 LBBB (left bundle branch block) [I44.7] Mobitz (type) I (Wenckebach's) atrioventricular* Lower extremity edema [R60.0] 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* Chronic diastolic heart failure (HCC) [I50.32] 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 [facility]11-26-2024 Miscellaneous Notes* Telephone Encounter - Mayela Hopson LPN - 04/17/2024 12:51 PM EST noted. * Telephone Encounter - Lauren Arzola APRN.CNP - 04/16/2024 9:19 AM EST Okay. Possible why his sugars have bee elevated as well. Lauren Arzola APRN.CNP * Telephone Encounter - Mayela Hopson LPN - 04/16/2024 9:08 AM EST Phoned Norah and went over notes below. She said her father is in [facility] with a fott infection right now. She will update you when she can. * Telephone Encounter - Lauren Arzola APRN.CNP - 04/16/2024 7:08 AM EST Update me Tuesday with readings. Lauren Arzola APRN.CNP * Telephone Encounter - Mayela Hopson LPN - 04/13/2024 2:47 PM EST Phoned daughter Norah and went over notes from Lauren Arzola SMELTER [employer]ER with understanding. Norah said father would not like to see pharmacist, she will try the increase in Lantus. * Telephone Encounter - Lauren Arzola APRN.CNP - 04/13/2024 2:36 PM EST Increase Lantus to 37 units daily. Would he be willing to talk with our clinical pharmacist to helpwith managing his diabetic medications as it doesn't seem we are getting much better. Lauren Arzola APRN.CNP * Telephone Encounter - Mayela Hopson LPN - 04/13/2024 2:31 PM EST Patient daughter Norah calling fathers blood sugar average is 306. She said he is not very active, his activity is going to dialysis 3 times a week. His Lantus is 33 units daily. Please advise documented in [facility] encounterHigh[facility]11-25-2024 Telephone encounter Note * Telephone Encounter - Lauren Arzola APRN.CNP - 04/16/2024 9:19 AM EST Okay. Possible why his sugars have bee elevated as well. Lauren Arzola APRN.CNP [facility]11-25-2024 Telephone encounter Note* Telephone Encounter - Mayela Hopson LPN - 04/16/2024 9:08 AM EST Phoned Norah and went over notes below. She said her father is in [facility] with a fott infection right now. She will update you when she can. [facility]11-25-2024 [facility]11-25-2024 Telephone encounter Note* Telephone Encounter - Lauren Arzola APRN.CNP - 04/16/2024 7:08 AM EST Update me Tuesday with readings. Lauren Arzola APRN.LUZ [facility]11-23-2024 NoteHNO ID: [id number] Author: YOLANDA JAIN APRN.LUZ Service: ? Author Type: Nurse Practitioner Type: Progress Notes Filed: 04/14/2024 10:18 Note Text: Family brings the patient for evaluation of a red swollen right foot and leg which has been ongoing for the last several weeks. On initial evaluation patient also has an open wound over the first MTP joint of the right foot. Based on patient's presentation, the level of erythema and swelling combined with open wound I am concerned for osteomyelitis versus severe cellulitis and recommended ER evaluation to which the family was agreeable. Patient is in no acute distress and family will self transport to [facility] emergency [facility]11-23-2024 History of Present illness Narrative* Yolanda Jain APRN.CNP - 04/14/2024 10:15 AM EST Family brings the patient for evaluation of a red swollen right foot and leg which has been ongoingfor the last several weeks. On initial evaluation patient also has an open wound over the first MTPjoint of the right foot. Based on patient's presentation, the level of erythema and swelling combined with open wound I am concerned for osteomyelitis versus severe cellulitis and recommended ER evaluation to which the family was agreeable. Patient is in no acute distress and family will self transport to [facility] emergency [facility] documented in [facility] encounterHigh[facility]11-22-2024 Telephone encounter Note * Telephone Encounter - Mayela Hopson LPN - 04/13/2024 2:47 PM EST Phoned daughter Noarh and went over notes from Lauren Arzola SMELTER [employer]ER with understanding. Norah said father would not like to see pharmacist, she will try the increase in Lantus. [facility]11-22-2024 Telephone encounter Note* Telephone Encounter - Lauren Arzola APRN.CNP - 04/13/2024 2:36 PM EST Increase Lantus to 37 units daily. Would he be willing to talk with our clinical pharmacist to helpwith managing his diabetic medications as it doesn't seem we are getting much better. Lauren Arzola APRN.LUZ [facility]11-22-2024 Telephone encounter Note* Telephone Encounter - Mayela Hopson LPN - 04/13/2024 2:31 PM EST Patient daughter Norah calling fathers blood sugar average is 306. She said he is not very active, his activity is going to dialysis 3 times a week. His Lantus is 33 units daily. Please advise [facility]11-15-2024 Telephone encounter Note* Telephone Encounter - Deborah Bedoya LPN - 04/06/2024 8:18 AM EST Patients daughter Norah telephoned, she is medical POA and will be bringing in paperwork. Providers recommendations below given. Voices understanding. Deborah Bedoya LPN [facility]11-15-2024 Miscellaneous Notes* Telephone Encounter - Deborah Bedoya LPN - 04/06/2024 8:18 AM EST Patients daughter Norah telephoned, she is medical POA and will be bringing in paperwork. Providers recommendations below given. Voices understanding. Deborah Bedoya LPN * Telephone Encounter - Lauren Arzola APRN.LUZ - 04/06/2024 6:44 AM EST Increase Lantus to 33 units. I would recommend office appointment to discuss increasing forgetfulness. Would he be interested in talking to clinical pharmacist to see if she can help get better control of blood sugars? Update me in 5 days with blood sugar reading or average, sooner if getting lows. Lauren Azrola APRN.LUZ * Telephone Encounter - Mayela Hopson LPN - 04/05/2024 11:15 AM EST Patient daughter Norah calling to give SMELTER LINER her father blood sugar average since increased Lantus insulin to 29 units. She is not sure what date he increased his dose of Lantus, and if he is taking it daily. She said he is getting more forgetful. He usually takes his Lantus dose late afternoon. His freestyle Gelacio reader gives an average blood sugar at 327. She said it does not give her dates with separate readings. [facility] Telephone encounter Note * Telephone Encounter - Lauren Arzola APRN.CNP - 04/06/2024 6:44 AM EST Increase Lantus to 33 units. I would recommend office appointment to discuss increasing forgetfulness. Would he be interested in talking to clinical pharmacist to see if she can help get better control of blood sugars? Update me in 5 days with blood sugar reading or average, sooner if getting lows. Lauren Arzola APRN.CNP [facility]11-14-2024 Telephone encounter Note* Telephone Encounter - Mayela Hopson LPN - 04/05/2024 11:15 AM EST Patient daughter Norah calling to give SMELTER LINER her father blood sugar average since increased Lantus insulin to 29 units. She is not sure what date he increased his dose of Lantus, and if he is taking it daily. She said he is getting more forgetful. He usually takes his Lantus dose late afternoon. His freestyle Gelacio reader gives an average blood sugar at 327. She said it does not give her dates with separate readings. [facility]11-06-2024 Instructions* Patient Instructions* Lauren Arzola APRN.CNP - 03/28/2024 1:09 PM EST Check blood sugars three times a day and as needed- update me in one week with readings, sooner if needed documented in [facility] encounterHigh[facility]24 NoteHNO ID: [id number] Author: LAUREN ARZOLA APRN.CNP Service: ? Author Type: Nurse Practitioner Type: Progress Notes Filed: 03/28/2024 13:22 Note Text: 03/28/2024 Patient presents with: Fluid retention : and increased blood sugars, with sugars over 300s Has dialysis 3x week; sees nephrology monthly and saw him yesterday at dialysis, dr ordered him a diuretic but no call from pharmacy yet SUBJECTIVE: This is a 88 year old, accompanied by daughter, that is here today for Above Complaints. Reports increased blood sugars. Checks blood sugars daily 200-300. Has CGM unsure of what the average is. Denies visual changes, polyuria or polydipsia. Daughter concerned about hand grinder giving him a diuretic She reports he was at dialysis yesterday and they told him they were calling medication due to excess fluids. She is not sure what medication it is PAST MEDICAL HISTORY Diagnosis Date Chronic diastolic heart failure (HCC) Dr. Bacon ESRD (end stage renal disease) on dialysis ([facility]) Tues, Thurs, Sat Glaucoma Dr Jimneez LBBB (left bundle branch block) Dr. 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 Jimenez Type II or unspecified type diabetes mellitus without mention of complication, not stated as uncontrolled Unspecified essential hypertension ALLERGIES Actos [Pioglitazone Hcl], Atenolol, Januvia [Sitagliptin], Ozempic [Semaglutide], and Zocor [Simvastatin] MEDICATIONS Current Outpatient Medications Medication Sig flash glucose sensor (JoGuruSTYLE GELACIO 2 SENSOR) kit 2 Each four times daily. insulin glargine (LANTUS SOLOSTAR U-100 INSULIN) 100 unit/mL (3 mL) Inject 25 Units subcutaneously once daily. flash glucose scanning reader (JoGuruSTYLE GELACIO 14 DAY READER) 1 Units four times daily. blood sugar diagnostic (BLOOD GLUCOSE TEST) test strip Test blood sugar(s) 2 times daily. Dx: Type 2 DM -E11.65 Insulin: No blood sugar diagnostic (ACCU-CHEK LISA PLUS TEST STRP) test strip Test blood sugar(s) 2x daily. Dx E11.65. Insulin: No. mecobalamin (B12 ACTIVE ORAL) Take 1 tablet by mouth once daily. Every other day Insulin Perryman, Disposable, (BD ULTRA-FINE SHAHEEN PEN NEEDLE) 32 gauge x 5/32" Use one needle for each dose. 1x/day. lancets (FREESTYLE LANCETS) 28 gauge 1 Each once daily. blood sugar diagnostic (BLOOD GLUCOSE TEST) test strip Test blood sugar(s) 2x daily. Dx: E11.65. Insulin: No COMPOUNDED PRESCRIPTION True Metrix Test Strips. Test blood sugar(s) 2x daily. Dx: E11.65. Insulin: No COMPOUNDED PRESCRIPTION True Metrix Lancets. Test blood sugar(s) 2x daily. Dx: E11.65. Insulin: No cholecalciferol (VITAMIN D3) 5,000 unit tab Take 5,000 Units by mouth once daily. Blood-Glucose Meter [facility] Dispense 1 kit. Dx: E11.65 Aspirin 81 mg tab Take 1 tablet by mouth once daily. Take with food. COMPOUNDED PRESCRIPTION Crill Oil, Take 1 tablet daily. COMPOUNDED PRESCRIPTION robin msm take two in morning No current facility-administered medications for this visit. Medications and allergies reviewed by this provider. SOCIAL HISTORY Social History Tobacco Use Smoking status: Former Types: Cigars Smokeless tobacco: Never Vaping Use Vaping status: Never Used Substance Use Topics Alcohol use: Yes Comment: rarely Drug use: No REVIEW OF SYSTEMS All other reviewed and negative other than HPI. OBJECTIVE: BP (!) 118/48 Pulse (!) 47 Resp 18 Wt 99.2 kg (218 lb 11.1 oz) SpO2 98% BMI 34.25 kg/m? . Vital signs reviewed by this provider. APPEARANCE Well appearing, alert, in no acute distress, well-hydrated, well nourished. EYES PERRLA, conjunctiva and sclera normal. HEART RRR with normal S1 and S2, no murmurs, no gallops, no JVD appreciated LUNG clear to auscultation. No wheezes, rhonchi or rales SKIN Skin color, texture, turgor normal, no suspicious rashes or lesions to exposed skin Depression Screening Never done Anxiety Screening Never done Shingrix Vaccine(1 of 2) Never done RSV Vaccine(1 - 1-dose 75+ series) Never done Advance Directive Discussion Never done Hepatitis B Vaccine(9 of 9 - Risk Dialysis Recombivax 3-dose series) due on 07/06/2023 HbA1C due on 08/24/2023 Covid-19 Vaccine( season) due on 01/22/2024 Diabetic Foot Exam due on 02/22/2024 Dilated Retinal Exam due on 04/27/2024 LDL Cholesterol due on 05/25/2024 DTaP,Tdap,Td Vaccine(3 - Td or Tdap) due on 04/26/2028 Influenza Vaccine Completed Pneumococcal Vaccine: 65+ Completed ASSESSMENT/PLAN: 1. 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, without long-term current use of insulin (HCC) - ICD9: 250.50, 362.05, 362.07, ICD10: E11. (more content not included)... [facility]11-06-2024 History of Present illness Narrative* PodlogarLauren APRN.MANAGER OUTREACH - 03/28/2024 12:55 PM EST 03/28/2024 Patient presents with: Fluid retention : and increased blood sugars, with sugars over 300s Has dialysis 3x week; sees nephrology monthly and saw him yesterday at dialysis, dr ordered him a diuretic but no call from pharmacy yet SUBJECTIVE: This is a 88 year old, accompanied by daughter, that is here today for Above Complaints. Reports increased blood sugars. Checks blood sugars daily 200-300. Has CGM unsure of what the average is. Denies visual changes, polyuria or polydipsia. Daughter concerned about hand grinder giving him a diuretic She reports he was at dialysis yesterday and they told him they were calling medication due to excess fluids. She is not sure what medication it is PAST MEDICAL HISTORY Diagnosis Date Chronic diastolic heart failure (HCC) Dr. 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 Jimenez Type II or unspecified type diabetes mellitus without mention of complication, not stated as uncontrolled Unspecified essential hypertension ALLERGIES Actos [Pioglitazone Hcl], Atenolol, Januvia [Sitagliptin], Ozempic [Semaglutide], and Zocor [Simvastatin] MEDICATIONS Current Outpatient Medications Medication Sig flash glucose sensor (JoGuruSTYLE GELACIO 2 SENSOR) kit 2 Each four times daily. insulin glargine (LANTUS SOLOSTAR U-100 INSULIN) 100 unit/mL (3 mL) Inject 25 Units subcutaneously once daily. flash glucose scanning reader (FREESTYLE GELACIO 14 DAY READER) 1 Units four times daily. blood sugar diagnostic (BLOOD GLUCOSE TEST) test strip Test blood sugar(s) 2 times daily. Dx: Type 2 DM -E11.65 Insulin: No blood sugar diagnostic (ACCU-CHEK LISA PLUS TEST STRP) test strip Test blood sugar(s) 2x daily. DxE11.65. Insulin: No. mecobalamin (B12 ACTIVE ORAL) Take 1 tablet by mouth once daily. Every other day Insulin Perryman, Disposable, (BD ULTRA-FINE SHAHEEN PEN NEEDLE) 32 gauge x 5/32" Use one needle for each dose. 1x/day. lancets (FREESTYLE LANCETS) 28 gauge 1 Each once daily. blood sugar diagnostic (BLOOD GLUCOSE TEST) test strip Test blood sugar(s) 2x daily. Dx: E11.65. Insulin: No COMPOUNDED PRESCRIPTION True Metrix Test Strips. Test blood sugar(s) 2x daily. Dx: E11.65. Insulin:No COMPOUNDED PRESCRIPTION True Metrix Lancets. Test blood sugar(s) 2x daily. Dx: E11.65. Insulin: No cholecalciferol (VITAMIN D3) 5,000 unit tab Take 5,000 Units by mouth once daily. Blood-Glucose Meter [facility] [place] Dispense 1 kit. Dx: E11.65 Aspirin 81 mg tab Take 1 tablet by mouth once daily. Take with food. COMPOUNDED PRESCRIPTION Crill Oil, Take 1 tablet daily. COMPOUNDED PRESCRIPTION robin msm take two in morning No current facility-administered medications for this visit. Medications and allergies reviewed by this provider. SOCIAL HISTORY Social History Tobacco Use Smoking status: Former Types: Cigars Smokeless tobacco: Never Vaping Use Vaping status: Never Used Substance Use Topics Alcohol use: Yes Comment: rarely Drug use: No REVIEW OF SYSTEMS All other reviewed and negative other than HPI. OBJECTIVE: BP (!) 118/48 Pulse (!) 47 Resp 18 Wt 99.2 kg (218 lb 11.1 oz) SpO2 98% BMI 34.25 kg/m . Vital signs reviewed by this provider. APPEARANCE Well appearing, alert, in no acute distress, well-hydrated, well nourished. EYES PERRLA, conjunctiva and sclera normal. HEART RRR with normal S1 and S2, no murmurs, no gallops, no JVD appreciated LUNG clear to auscultation. No wheezes, rhonchi or rales SKIN Skin color, texture, turgor normal, no suspicious rashes or lesions to exposed skin Depression Screening Never done Anxiety Screening Never done Shingrix Vaccine(1 of 2) Never done RSV Vaccine(1 - 1-dose 75+ series) Never done Advance Directive Discussion Never done Hepatitis B Vaccine(9 of 9 - Risk Dialysis Recombivax 3-dose series) due on 07/06/2023 HbA1C due on 08/24/2023 Covid-19 Vaccine( season) due on 01/22/2024 Diabetic Foot Exam due on 02/22/2024 Dilated Retinal Exam due on 04/27/2024 LDL Cholesterol due on 05/25/2024 DTaP,Tdap,Td Vaccine(3 - Td or Tdap) due on 04/26/2028 Influenza Vaccine Completed Pneumococcal Vaccine: 65+ Completed ASSESSMENT/PLAN: 1. 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, without long-term current use of insulin ([facility]) - ICD9: 250.50, 362.05, 362.07, ICD10: E11.3313 - uncontrolled - increase Lantus to 29 units - update me next week with blood sugar readings, sooner if develops lows - eat low carbohydrate diet - obtain labs today - LANTUS SOLOSTAR U-100 INSULIN 100 UNIT/ML (3 ML) SUBCUTANEOUS PEN 2. ESRD (end stage renal disease) on dialysis ([facility]) - ICD9: 585.6, V45.11, ICD10: N18.6, Z99.2 (primary diagnosis) - discussed with daughter they need to discuss concerns with hand grinder, verbalizes understanding Lauren Arzola APRN.CNP Prescription instructions reviewed with patient as applicable. Patient advised if symptoms do not improve or if symptoms worsen sooner, to contact their primary care physician. Potential red flag symptoms discussed with the patient. Reviewed appropriate action plan to take if red flag symptoms occur. Patient agreeable to treatment plan. Medical Decision Making: Problems: Moderate: 1+ chronic illnesses with change Risk: Moderate: Drug management and Moderate risk from testing/treatment Medical Decision Making Level: 4 - Moderate documented in [facility]High[facility] History of Present illness Narrative* Podlogar, KIKE Aguilar - 01/06/2024 9:40 AM EDT 01/04/2024 Patient presents with: 4 month follow up SUBJECTIVE: This is a 88 year old, accompanied by daughter, that is here today for Above Complaints. Since last office visit hs been in good health without ER visits or hospitalizations. DIABETES MELLITUS: Since our last visit he denies excessive thirst or increased frequency of urination, chest pain or dyspnea , numbness, tingling or pain in extremities, new or unusual visual symptoms, low sugar/hypoglycemic reactions, weight loss/gain, lightheadedness/dizziness, and bowel changes/loose stools. Follows a diabetic diet most of the time. He is not compliant with medication(s) due to side effects of diarrhea. He reports checking his glucose on a four times a day schedule with sugars in the less than 200 range Patient's last HgA1C was Hemoglobin A1C (%) Date Value 05/25/2023 8.1 02/25/2021 7.2 06/14/2019 8.0 Hemoglobin A1C (POCT) (%) Date Value 12/06/2022 8.1 09/06/2022 8.4 ) Last Ophthalmology exam was within the past 12 months Stopped Ozempic in August due to gastric upset CKD: continues with dialysis three days a week. Follows with Dr. Faria Follows with [facility] cardiology for hx of Mobitz Type I and CHF with last appointment on 10/07/2023. Nomedication changes made at that time.Has scheduled follow-up for next year. Denies SOB, dyspnea, orthopnea, chest pain or palpitations. Wears compression hose for bilateral leg swelling- no worseningper his report PAST MEDICAL HISTORY No date: Chronic diastolic heart failure (HCC) Comment: Dr. Bacon No date: 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) Comment: Tues, Th, Sat No date: Glaucoma Comment: Dr Jimenez No date: LBBB (left bundle branch block) Comment: Dr. 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 Jimenez No date: Type II or unspecified type diabetes mellitus without mention of complication, not stated as uncontrolled No date: Unspecified essential hypertension ALLERGIES Actos [Pioglitazone Hcl], Atenolol, Januvia [Sitagliptin], and Zocor [Simvastatin] MEDICATIONS Current Outpatient Medications Medication Sig insulin glargine (LANTUS SOLOSTAR U-100 INSULIN) 100 unit/mL (3 mL) Inject 25 Units subcutaneously once daily. flash glucose sensor (JoGuruSTYLE GELACIO 2 SENSOR) kit 2 Each four times daily. semaglutide (OZEMPIC) 0.25 mg or 0.5 mg(2 mg/1.5 mL) pen Inject 0.5 mg subcutaneously one time a week. semaglutide (OZEMPIC) 0.25 mg or 0.5 mg(2 mg/1.5 mL) pen Inject 0.5 mg subcutaneously one time a week. flash glucose scanning reader (JoGuruSTYLE GELACIO 14 DAY READER) 1 Units four times daily. blood sugar diagnostic (BLOOD GLUCOSE TEST) test strip Test blood sugar(s) 2 times daily. Dx: Type 2 DM - Insulin: No blood sugar diagnostic (ACCU-CHEK LISA PLUS TEST STRP) test strip Test blood sugar(s) 2x daily. DxE11.65. Insulin: No. mecobalamin (B12 ACTIVE ORAL) Take 1 tablet by mouth once daily. Every other day Insulin Perryman, Disposable, (BD ULTRA-FINE SHAHEEN PEN NEEDLE) 32 gauge x 5/32" Use one needle for each dose. 1x/day. lancets (FREESTYLE LANCETS) 28 gauge 1 Each once daily. blood sugar diagnostic (BLOOD GLUCOSE TEST) test strip Test blood sugar(s) 2x daily. Dx: E11. Insulin: No COMPOUNDED PRESCRIPTION True Metrix Test Strips. Test blood sugar(s) 2x daily. Dx: . Insulin:No COMPOUNDED PRESCRIPTION True Metrix Lancets. Test blood sugar(s) 2x daily. Dx: E11.. Insulin: No cholecalciferol (VITAMIN D3) 5,000 unit tab Take 5,000 Units by mouth once daily. Blood-Glucose Meter [facility] Dispense 1 kit. Dx: E11.65 Aspirin 81 mg tab Take 1 tablet by mouth once daily. Take with food. COMPOUNDED PRESCRIPTION Crill Oil, Take 1 tablet daily. COMPOUNDED PRESCRIPTION robin msm take two in morning No current facility-administered medications for this visit. Medications and allergies reviewed by this provider. SOCIAL HISTORY Social History Tobacco Use Smoking status: Former Types: Cigars Smokeless tobacco: Never Vaping Use Vaping Use: Never used Substance Use Topics Alcohol use: Yes Comment: rarely Drug use: No REVIEW OF SYSTEMS All other reviewed and negative other than HPI. OBJECTIVE: BP 128/58 Pulse (!) 58 Resp 16 Wt 95.6 kg (210 lb 12.2 oz) SpO2 97% BMI 33.01 kg/m . Vital signs reviewed by this provider. APPEARANCE Well appearing, alert, in no acute distress, well-hydrated, well nourished. EYES conjunctiva and sclera normal. HEART RRR with normal S1 and S2, no murmurs, no gallops, no JVD appreciated LUNG clear to auscultation. No wheezes, rhonchi or rales EXTREMITIES Bilateral compression hose intact SKIN Skin color, texture, turgor normal, no suspicious rashes or lesions to exposed skin Latest Ref Rng 05/25/2023 Total Cholesterol, Nonfasting <200 mg/dL 150 Triglycerides, Nonfasting <150 mg/dL 73 HDL Cholesterol, Nonfasting >39 mg/dL 43 LDL Cholesterol, Nonfasting <100 mg/dL 92 Non HDL Cholesterol, Nonfasting <130 mg/dL 107 VLDL Cholesterol, Nonfasting <30 mg/dL 15 Total Chol/HDL Ratio, Nonfasting <5.10 mg/dL 3.49 LDL/HDL Ratio, Nonfasting <2.54 mg/dL 2.14 Hemoglobin A1C 4.3 - 5.6 % 8.1 (H) Estimated Average Glucose mg/dL 186 Legend: (H) High Depression Screening Never done Anxiety Screening Never done Shingrix Vaccine(1 of 2) Never done RSV Vaccine(1 - 1-dose 60+ series) Never done Advance Directive Discussion Never done Covid-19 Vaccine(2022- season) due on 06/24/2023 Hepatitis B Vaccine(9 of 9 - Risk Dialysis Recombivax 3-dose series) due on 07/06/2023 HbA1C due on 08/24/2023 Influenza Vaccine(1) due on 01/22/2024 Diabetic Foot Exam due on 02/22/2024 Dilated Retinal Exam due on 04/27/2024 LDL Cholesterol due on 05/25/2024 DTaP,Tdap,Td Vaccine(3 - Td or Tdap) due on 04/26/2028 Pneumococcal Vaccine: 65+ Completed ASSESSMENT/PLAN: 1. 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) - ICD9: 585.6, V45.11, ICD10: N18.6, Z99.2 - eGFR: Stable - Counseled on avoiding NSAIDs, adequate hydration - Counseled on low sodium diet - Follow up with kidney medicine 3. Chronic diastolic heart failure (HCC) - ICD9: 428.32, ICD10: I50.32 - Continue current medications - Encouraged sodium restriction - Encouraged daily weights - Recommend regular aerobic exercise - Call if 5 lbs gained in 7 days 4. Mobitz (type) I (Wenckebach's) atrioventricular block - ICD9: 426.13, ICD10: I44.1 - stable - continue current medications and follow-up with cardiology as scheduled 5. Lower extremity edema - ICD9: 782.3, ICD10: R60.0 -stable - continue compression hose - low salt diet - elevated legs when sitting 6. Essential hypertension - ICD9: 401.9, ICD10: I10 - Controlled - Continue current medications - Recommend home blood pressure monitoring, to bring results to next visit - Encouraged sodium restriction, DASH or Mediterranean diet - Recommend regular aerobic exercise - Discussed need for and benefit of weight loss. BMI 33.01 kg/(m^2) - Follow up in 6 months for hypertension visit 7. Mixed hyperlipidemia - ICD9: 272.2, ICD10: E78.2 - Controlled - Counseled on healthy diet and regular exercise - Discussed need for and benefit of weight loss. BMI 33.01 kg/(m^2) - Follow up in 6 months, sooner should any other issues arise. Lauren Arzola APRN.LUZ Prescription instructions reviewed with patient as applicable. Patient advised if symptoms do not improve or if symptoms worsen sooner, to contact their primary care physician. Potential red flag symptoms discussed with the patient. Reviewed appropriate action plan to take if red flag symptoms occur. Patient agreeable to treatment plan. Medical Decision Making: Problems: Moderate: 2+ stable chronic illnesses Data: Unique test(s) ordered: 2 Risk: Moderate: Moderate risk from testing/treatment Medical Decision Making Level: 4 - Moderate documented in this encounterHigh[facility]08-[facility]24 NoteHNO ID: [id number] Author: LAUREN ARZOLA APRN.CNP Service: ? Author Type: Nurse Practitioner Type: Progress Notes Filed: 01/06/2024 09:59 Note Text: 01/04/2024 Patient presents with: 4 month follow up SUBJECTIVE: This is a 88 year old, accompanied by daughter, that is here today for Above Complaints. Since last office visit hs been in good health without ER visits or hospitalizations. DIABETES MELLITUS: Since our last visit he denies excessive thirst or increased frequency of urination, chest pain or dyspnea , numbness, tingling or pain in extremities, new or unusual visual symptoms, low sugar/hypoglycemic reactions, weight loss/gain, lightheadedness/dizziness, and bowel changes/loose stools. Follows a diabetic diet most of the time. He is not compliant with medication(s) due to side effects of diarrhea. He reports checking his glucose on a four times a day schedule with sugars in the less than 200 range Patient's last HgA1C was Hemoglobin A1C (%) Date Value 05/25/2023 8.1 02/25/2021 7.2 06/14/2019 8.0 Hemoglobin A1C (POCT) (%) Date Value 12/06/2022 8.1 09/06/2022 8.4 ) Last Ophthalmology exam was within the past 12 months Stopped Ozempic in August due to gastric upset CKD: continues with dialysis three days a week. Follows with Dr. Faria Follows with [facility] cardiology for hx of Mobitz Type I and CHF with last appointment on 10/07/2023. No medication changes made at that time.Has scheduled follow-up for next year. Denies SOB, dyspnea, orthopnea, chest pain or palpitations. Wears compression hose for bilateral leg swelling- no worsening per his report PAST MEDICAL HISTORY No date: Chronic diastolic heart failure (HCC) Comment: Dr. Bacon No date: 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) Comment: es, Th, Sat No date: Glaucoma Comment: Dr Jimenez No date: LBBB (left bundle branch block) Comment: Dr. 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 Jimenez No date: Type II or unspecified type diabetes mellitus without mention of complication, not stated as uncontrolled No date: Unspecified essential hypertension ALLERGIES Actos [Pioglitazone Hcl], Atenolol, Januvia [Sitagliptin], and Zocor [Simvastatin] MEDICATIONS Current Outpatient Medications Medication Sig insulin glargine (LANTUS SOLOSTAR U-100 INSULIN) 100 unit/mL (3 mL) Inject 25 Units subcutaneously once daily. flash glucose sensor (JoGuruSTYLE GELACIO 2 SENSOR) kit 2 Each four times daily. semaglutide (OZEMPIC) 0.25 mg or 0.5 mg(2 mg/1.5 mL) pen Inject 0.5 mg subcutaneously one time a week. semaglutide (OZEMPIC) 0.25 mg or 0.5 mg(2 mg/1.5 mL) pen Inject 0.5 mg subcutaneously one time a week. flash glucose scanning reader (FREESTYLE GELACIO 14 DAY READER) 1 Units four times daily. blood sugar diagnostic (BLOOD GLUCOSE TEST) test strip Test blood sugar(s) 2 times daily. Dx: Type 2 DM -E11.65 Insulin: No blood sugar diagnostic (ACCU-CHEK LISA PLUS TEST STRP) test strip Test blood sugar(s) 2x daily. Dx E11.65. Insulin: No. mecobalamin (B12 ACTIVE ORAL) Take 1 tablet by mouth once daily. Every other day Insulin Perryman, Disposable, (BD ULTRA-FINE SHAHEEN PEN NEEDLE) 32 gauge x 5/32" Use one needle for each dose. 1x/day. lancets (FREESTYLE LANCETS) 28 gauge 1 Each once daily. blood sugar diagnostic (BLOOD GLUCOSE TEST) test strip Test blood sugar(s) 2x daily. Dx: E11.65. Insulin: No COMPOUNDED PRESCRIPTION True Metrix Test Strips. Test blood sugar(s) 2x daily. Dx: E11.65. Insulin: No COMPOUNDED PRESCRIPTION True Metrix Lancets. Test blood sugar(s) 2x daily. Dx: E11.65. Insulin: No cholecalciferol (VITAMIN D3) 5,000 unit tab Take 5,000 Units by mouth once daily. Blood-Glucose Meter [facility] Dispense 1 kit. Dx: E11.65 Aspirin 81 mg tab Take 1 tablet by mouth once daily. Take with food. COMPOUNDED PRESCRIPTION Crill Oil, Take 1 tablet daily. COMPOUNDED PRESCRIPTION robin msm take two in morning No current facility-administered medications for this visit. Medications and allergies reviewed by this provider. SOCIAL HISTORY Social History Tobacco Use Smoking status: Former Types: Cigars Smokeless tobacco: Never Vaping Use Vaping Use: Never used Substance Use Topics Alcohol use: Yes Comment: rarely Drug use: No REVIEW OF SYSTEMS All other reviewed and negative other than HPI. OBJECTIVE: BP 128/58 Pulse (!) 58 Resp 16 Wt 95.6 kg (210 lb 12.2 oz) SpO2 97% BMI 33.01 kg/m? . Vital signs reviewed by this provider. APPEARANCE Well appearing, alert, in no acute distress, well-hydrated, well nourished. EYES conjunctiva (more content not included)...[facility] 12-15-2023 Telephone encounter Note* Telephone Encounter - Linwood Concepcion Hughes - 12/15/2023 4:28 PM EDT Prescription Refill Information The patient has been identified by name and date of : Yes Caregiver verified no other encounters exist for this prescription request: Yes Caregiver confirmed with patient/requestor that no other refills are due, in the near future, with this provider at this time: Yes The last office visit in the department: 05/25/23 Does the patient have a future office visit with this provider/department: Yes, 01/06/24 Requested Prescriptions Pending Prescriptions Disp Refills insulin glargine (LANTUS SOLOSTAR U-100 INSULIN) 100 unit/mL (3 mL) 24 mL 1 Sig: Inject 25 Units subcutaneously once daily. Per DaughterEd told her father has no refills. It appears this prescription is good untilOctober. Please call francisco Almazan Concepcion Hughes December 15, 2023 4:29 PM [facility]07-25-2024 Miscellaneous Notes* Telephone Encounter - Concepcion Contreras - 12/15/2023 4:28 PM EDT Prescription Refill Information The patient has been identified by name and date of : Yes Caregiver verified no other encounters exist for this prescription request: Yes Caregiver confirmed with patient/requestor that no other refills are due, in the near future, with this provider at this time: Yes The last office visit in the department: 05/25/23 Does the patient have a future office visit with this provider/department: Yes, 01/06/24 Requested Prescriptions Pending Prescriptions Disp Refills insulin glargine (LANTUS SOLOSTAR U-100 INSULIN) 100 unit/mL (3 mL) 24 mL 1 Sig: Inject 25 Units subcutaneously once daily. Per DaughterEd told her father has no refills. It appears this prescription is good untilOctober. Please call francisco Almazan Concepcion [facility] December 15, 2023 4:29 PM [facility] Discharge instructions Patient Education 09/08/2023 14:39:24 Vitrectomy, Care After Vitrectomy, Care After This sheet gives you information about how to care for yourself after your procedure. Your health care provider may also give you more specific instructions. If you have problems or questions, contact your health care provider. What can I expect after the procedure? After the procedure, it is common to have: A spot that looks like a bubble blocking your field of vision. This goes away over time. A feeling like there is something in your eye. Very blurry vision in the affected eye. A dilated pupil. Light sensitivity. Difficulty seeing things up close. Follow these instructions at home: Eye care Keep the area around your eye clean and dry. If you were given an eye patch or eye shield, wear it as told by your health care provider. If you were prescribed antibiotic eye drops, use them as told by your health care provider. Do not stop using the antibiotic even if your condition improves. Wear sunglasses if your eyes are sensitive to light. Do not use contact lenses until your health care provider approves. Activity You may be told to stay in a certain position for a period of time, such as sitting up or lying on your back or on your stomach. Make sure you do this as told by your health care provider. Rest as told by your health care provider. Avoid strenuous physical activity for as long as told by your health care provider. This includes bending over, lifting anything that is heavier than 5 lb (2.3 kg) or the limit that you are told by your health care provider, and straining. Ask your health care provider when you may have sex. Do not drive until your health care provider approves. Do not ride in an airplane until your health care provider approves. General instructions Take or apply xboh-ntp-ujgjkiy and prescription medicines only as told by your health care provider. This includes any eye drops. Keep all follow-up visits as told by your health care provider. This is important. Contact a health care provider if: Your eye becomes very red and painful. You have any pus or discharge coming from your eye. You have chills. Your eyelid on either eye becomes swollen or stuck shut. Get help right away if: You have a fever. You have severe pain. You see small, drifting specks in front of your vision. Part of your vision is covered by what looks like a black curtain that you cannot see through. You have a sudden loss of vision. Summary After the procedure, it is common to have a spot that looks like a bubble blocking your field of vision. This goes away over time. If you were given an eye patch or eye shield, wear it as told by your health care provider. You may be told to stay in a certain position for a period of time, such as sitting up or lying on your back or on your stomach. Make sure you do this as told by your health care provider. Take or apply czqm-zsa-afrghgp and prescription medicines only as told by your health care provider. This includes any eye drops. This information is not intended to replace advice given to you by your health care provider. Make sure you discuss any questions you have with your health care provider. Document Released: 01/25/2012 Document Revised: 05/25/2019 Document Reviewed: 05/28/2019 Elsevier Patient Education 2020 [employer] Follow Up Care 09/06/2023 10:35:24 With:JEAN PIERRE ZIEGLER MD, [facility] Address: [address] [facility] [place] [address]- [phone] When: Unknown Comments:Follow-up as scheduled [facility] 04-18-2024 Summary of episode note Discharge Instructions Thank you for allowing [facility] to assist you with your healthcare needs. The following is importantdischarge information regarding your hospital visit. What to do next Follow Up Appointments Follow Up with JEAN PIERRE ZIEGLER MD, [facility] When Why: Follow-up as scheduled Where: [facility] [address] [facility] [place] [address] [phone] The Following Activity and Diet Have Been Ordered for You Discharge Activity - Ordered -- Follow the post-operative/post-procedure activity instructions provided by your physician's office., 09/08/23 14:37:00 EDT Discharge Diet - Ordered -- Follow the post-operative/post-procedure diet instructions provided by your physician's office.,09/08/23 14:37:00 EDT The Following Equipment Has Been Ordered for You Discharge Home Equipment Discharge Wound Care - Ordered -- Follow the post-operative/post-procedure wound care instructions provided by your physician's office., 09/08/23 14:37:00 EDT Allergies NKA Medications Please ask your primary doctor or pharmacist before taking any other medication not listed, including over the counter drugs, herbal medications, vitamins and or supplements as they may interact withyour home medications. What How Much When Instructions Last Dose Unchanged brimonidine ophthalmic (brimonidine 0.2% ophthalmic solution) 1 Drops Right eye Two (2) times a day Unchanged cholecalciferol (Vitamin D3 25 mcg (1000 intl units) oral capsule) 1 cap by mouth Every day Unchanged insulin glargine (Lantus Solostar Pen 100 units/ mL 3 mL Pen) 25 unit(s) Subcutaneous Daily before supper Unchanged ketorolac ophthalmic (ketorolac 0.5% ophthalmic solution) 1 Drops Right eye Four (4) times a day Unchanged latanoprostene bunod ophthalmic (Vyzulta 0.024% ophthalmic solution) 1 Drops Both eyes Daily at bedtime Unchanged Misc Medication (FreeStyle Gelacio 14 Day Sensor kit) CHANGE APPLIANCE EVERY 14 DAYS Unchanged ofloxacin ophthalmic (ofloxacin 0.3% ophthalmic solution) 1 Drops Right eye Four (4) times a day Unchanged semaglutide (Ozempic 2 mg/ 3 mL (0.25 mg or 0.5 mg dose) subcutaneous solution) 0.5 Milligram Subcutaneous Every Tuesday rotate injection sites Unchanged timolol ophthalmic (timolol maleate 0.5% ophthalmic solution) 1 Drops Right eye Two (2) times a day Please take this list to your next doctor s visit. Bring all medications you take, including over the counter medications, herbals and other supplements with you to your doctor s visit. Patients and families are reminded to discard old lists and to update any records with all medication providers or retail pharmacies. Education Materials Vitrectomy, Care After This sheet gives you information about how to care for yourself after your procedure. Your health care provider may also give you more specific instructions. If you have problems or questions, contact your health care provider. What can I expect after the procedure? After the procedure, it is common to have: A spot that looks like a bubble blocking your field of vision. This goes away over time. A feeling like there is something in your eye. Very blurry vision in the affected eye. A dilated pupil. Light sensitivity. Difficulty seeing things up close. Follow these instructions at home: Eye care Keep the area around your eye clean and dry. If you were given an eye patch or eye shield, wear it as told by your health care provider. If you were prescribed antibiotic eye drops, use them as told by your health care provider. Do not stop using the antibiotic even if your condition improves. Wear sunglasses if your eyes are sensitive to light. Do not use contact lenses until your health care provider approves. Activity You may be told to stay in a certain position for a period of time, such as sitting up or lying on your back or on your stomach. Make sure you do this as told by your health care provider. Rest as told by your health care provider. Avoid strenuous physical activity for as long as told by your health care provider. This includes bending over, lifting anything that is heavier than 5 lb (2.3 kg) or the limit that you are told by your health care provider, and straining. Ask your health care provider when you may have sex. Do not drive until your health care provider approves. Do not ride in an airplane until your health care provider approves. General instructions Take or apply oblo-xua-nxafset and prescription medicines only as told by your health care provider. This includes any eye drops. Keep all follow-up visits as told by your health care provider. This is important. Contact a health care provider if: Your eye becomes very red and painful. You have any pus or discharge coming from your eye. You have chills. Your eyelid on either eye becomes swollen or stuck shut. Get help right away if: You have a fever. You have severe pain. You see small, drifting specks in front of your vision. Part of your vision is covered by what looks like a black curtain that you cannot see through. You have a sudden loss of vision. Summary After the procedure, it is common to have a spot that looks like a bubble blocking your field of vision. This goes away over time. If you were given an eye patch or eye shield, wear it as told by your health care provider. You may be told to stay in a certain position for a period of time, such as sitting up or lying on your back or on your stomach. Make sure you do this as told by your health care provider. Take or apply zjbn-gtc-fmkegjp and prescription medicines only as told by your health care provider. This includes any eye drops. This information is not intended to replace advice given to you by your health care provider. Make sure you discuss any questions you have with your health care provider. Document Released: 01/25/2012 Document Revised: 05/25/2019 Document Reviewed: 05/28/2019 Elsevier Patient Education 2020 [employer] Additional Information VACCINATE! IT SAVES LIVES! Members of the community who have not yet received the COVID-19 vaccine and would like to receive it can visit one of [facility] vaccine clinics. There are many vaccine clinic locations within the [facility]. For locations and available times, please visit [email or web address].coronavirus.[place].gov/. It is important to note that some COVID mobile vaccine clinics are held outdoors and may be canceled in rainy or stormy conditions. To learn more about pediatric vaccinations (ages 5-11), we invite you to visit the [facility] webpage. [email or web address] learn more about the COVID-19 vaccine, we invite you to visit the CDC website for a list of frequently asked questions.https://www.cdc.gov/coronavirus/2019-ncov/vaccines/faq.html [facility] Patient Portal Access Instructions: Stay connected with your healthcare team and access your personal medical information anytime with the [facility] Patient Portal. Please follow the directions below to create your [facility] account: 1.Access the email account you provided upon registration to the hospital/physician office.2.Look for an invitation email from [facility].3.Open the email and access the invitation link: AcceptInvitation to Take[facility].4.Fill in the required meyers to create your account. To access your account, visit [email or web address]. Click the blue button labeled "Access Patient Portal" and then log in with the username and password that you created in the steps above. You will be able to view your test results, lab results, a summary of your visits, upcoming appointments and more. There is also a convenient messaging option where you can send secure messages to your p rovider. In addition, you will have the ability to download any documents or summaries to your computer and/or send the information securely to a physician. Remember that your healthcare information is confidential, so carefully consider who you will allowto register on the [facility] Patient Portal for access to your information. You can also access the [facility] Patient Portal on the [facility] aramis. Simply click on "Patient Portal" and then log into your account. If you would like to receive a full copy of your medical records, please contact the [facility] Medical Records Department by calling [phone], Tuesday through Tuesday between 8 a.m. and 4:30 p.m. HOW TO SAFELY DISPOSE OF PRESCRIPTION MEDICATIONS Please use one of the following methods to safely dispose of your unused medications. 1.Use a drug disposal kit: the drug disposal pouch allows you to safely discard your old and unuseddrugs. Ask your nurse to give you one when you are discharged.2.Visit a local take-back location: Many local pharmacies and police departments have programs that collect old and unwanted prescriptiondrugs. Call your local pharmacy or go to http://[email or web address]/[email or web address] to find one close to you.3.Make use of household items: Use cat litter or old coffee grounds to dispose medications if other options arenot available. Mix your drugs with these household products, seal them in an airtight container andthrow it into the garbage. Call [facility]: [phone] to be sure your drugs can be disposed of in this way. Some medicines may require a different approach.4.Never flush your medications down the toilet. IF YOU HAVE BEEN PRESCRIBED AN OPIOID FOR PAIN If you have been prescribed an opioid (such as hydrocodone, oxycodone or morphine), it is critical to understand the possible side effects and risks of opioid pain medications. Even when taken as directed, opioids can have several side effects including: Tolerance, meaning you might need to take more of a medication for the same pain relief. Nausea, vomiting and/or constipation. Sleepiness, dizziness, dry mouth, confusion, depression or itching. Physical dependence, meaning you have withdrawal symptoms when a medication is stopped, can develop within a few days. KNOW YOUR RESPONSIBILITIES It is important to know exactly how much and how often to take the opioid pain medications you are prescribed. Never take opioids in higher amounts or more often than prescribed. Do not combine opioids with alcohol or other drugs that cause drowsiness, such as benzodiazepines, also known as benzos, including diazepam and alprazolam, muscle relaxants or sleep aids. Never sell or share prescription opioids. This is illegal. Store opioids in a secure place and out of reach of others (including children, family, friends and visitors). The last page of this document has been signed and retained as a CHART COPY. Signatures Patient Education Materials Vitrectomy, Care After Medication Leaflets My discharge plan and instructions have been reviewed and explained to me and I,PERLA THOMPSON understand my current condition and have read and understand these discharge instructions. I have receiveda written copy of the plan/instructions. If I have questions, I am aware that I should contact my do ctor. Patient/Resistor Tester Signature: Date/Time: Relationship to Patient: Witness Name/Signature: Date[facility]: [id number] Anesthesiology Consult note Patient: PERLA THOMPSON Age: 88 years Sex: Male : 1935 Associated Diagnoses: None Author: NIKKY AVENDANO MD Postoperative Information Patient has been doing well in the PACU. They have been hemodynamically stable, oxygenating well, the pain and nausea are under control. Pt's hydration status appears to be adequate and at baseline. Given the patient's stability, I feel they are appropriately recovered from anesthesia and in a stable condition to be discharged from PACU. Assessment Postanesthesia assessment Vitals: Vital signs from flowsheet : Vital Signs 09/08/2023 14:13 EDT Temperature Temporal Artery 36.1 DegC Heart Rate Monitored 51 bpm LOW Respiratory Rate 16 br/min Systolic Blood Pressure Non-Invasive 134 mmHg Diastolic Blood Pressure Non-Invasive 49 mmHg Mean Arterial Pressure (NBP) 74 mmHg 09/08/2023 13:58 EDT Heart Rate Monitored 45 bpm LOW Respiratory Rate 16 br/min Systolic Blood Pressure Non-Invasive 130 mmHg Diastolic Blood Pressure Non-Invasive 49 mmHg Mean Arterial Pressure (NBP) 74 mmHg 09/08/2023 13:43 EDT Temperature Temporal Artery 36.1 DegC Heart Rate Monitored 44 bpm LOW Respiratory Rate 16 br/min Systolic Blood Pressure Non-Invasive 124 mmHg Diastolic Blood Pressure Non-Invasive 54 mmHg LOW Mean Arterial Pressure (NBP) 73 mmHg 09/08/2023 13:38 EDT Systolic Blood Pressure Non-Invasive 114 mmHg mmHg Diastolic Blood Pressure Non-Invasive 101 mmHg mmHg 09/08/2023 13:35 EDT Temperature (Route Not Specified) 35.03 DegC DegC Heart Rate Monitored 35 bpm bpm Respiratory Rate - Anes 23 br/min br/min Systolic Blood Pressure Non-Invasive 116 mmHg mmHg Diastolic Blood Pressure Non-Invasive 56 mmHg mmHg 09/08/2023 13:32 EDT Systolic Blood Pressure Non-Invasive 117 mmHg mmHg Diastolic Blood Pressure Non-Invasive 54 mmHg mmHg 09/08/2023 13:30 EDT Temperature (Route Not Specified) 34.97 DegC DegC Heart Rate Monitored 43 bpm bpm Respiratory Rate - Anes 21 br/min br/min 09/08/2023 13:29 EDT Systolic Blood Pressure Non-Invasive 84 mmHg mmHg Diastolic Blood Pressure Non-Invasive 52 mmHg mmHg 09/08/2023 13:26 EDT Systolic Blood Pressure Non-Invasive 97 mmHg mmHg Diastolic Blood Pressure Non-Invasive 55 mmHg mmHg 09/08/2023 13:25 EDT Temperature (Route Not Specified) 34.86 DegC DegC Heart Rate Monitored 42 bpm bpm Respiratory Rate - Anes 11 br/min br/min 09/08/2023 13:23 EDT Systolic Blood Pressure Non-Invasive 106 mmHg mmHg Diastolic Blood Pressure Non-Invasive 55 mmHg mmHg 09/08/2023 13:20 EDT Temperature (Route Not Specified) 34.87 DegC DegC Heart Rate Monitored 42 bpm bpm Respiratory Rate - Anes 10 br/min br/min Systolic Blood Pressure Non-Invasive 110 mmHg mmHg Diastolic Blood Pressure Non-Invasive 56 mmHg mmHg 09/08/2023 13:17 EDT Systolic Blood Pressure Non-Invasive 132 mmHg mmHg Diastolic Blood Pressure Non-Invasive 58 mmHg mmHg 09/08/2023 13:15 EDT Temperature (Route Not Specified) 34.85 DegC DegC Heart Rate Monitored 47 bpm bpm Respiratory Rate - Anes 10 br/min br/min 09/08/2023 13:14 EDT Systolic Blood Pressure Non-Invasive 151 mmHg mmHg Diastolic Blood Pressure Non-Invasive 66 mmHg mmHg 09/08/2023 13:11 EDT Systolic Blood Pressure Non-Invasive 127 mmHg mmHg Diastolic Blood Pressure Non-Invasive 57 mmHg mmHg 09/08/2023 13:10 EDT Temperature (Route Not Specified) 34.54 DegC DegC Heart Rate Monitored 54 bpm bpm Respiratory Rate - Anes 10 br/min br/min 09/08/2023 13:08 EDT Systolic Blood Pressure Non-Invasive 110 mmHg mmHg Diastolic Blood Pressure Non-Invasive 52 mmHg mmHg 09/08/2023 13:05 EDT Temperature (Route Not Specified) 34.17 DegC DegC Heart Rate Monitored 40 bpm bpm Respiratory Rate - Anes 10 br/min br/min Systolic Blood Pressure Non-Invasive 110 mmHg mmHg Diastolic Blood Pressure Non-Invasive 58 mmHg mmHg 09/08/2023 13:02 EDT Systolic Blood Pressure Non-Invasive 160 mmHg mmHg Diastolic Blood Pressure Non-Invasive 60 mmHg mmHg 09/08/2023 13:00 EDT Heart Rate Monitored 60 bpm bpm Respiratory Rate - Anes 4 br/min br/min 09/08/2023 12:59 EDT Systolic Blood Pressure Non-Invasive 145 mmHg mmHg Diastolic Blood Pressure Non-Invasive 53 mmHg mmHg 09/08/2023 10:55 EDT Temperature Temporal Artery 35.6 DegC Peripheral Pulse Rate 56 bpm LOW Respiratory Rate 18 br/min Systolic Blood Pressure Non-Invasive 152 mmHg HI Diastolic Blood Pressure Non-Invasive 65 mmHg . Digitally Signed by NIKKY AVENDANO MD on 09/08/2023 02:22 PM [facility] [id number] Anesthesiology Consult note Patient: PERLA THOMPSON Age: 88 years Sex: Male : 1935 Associated Diagnoses: None Author: JERMAINE SWANSON MD Preoperative Information NPO >8 hours Anesthesia history Patient's history: negative. History of Present Illness 88yoM with PMH DM, ESRD on HD T, T, S, HTN, CHF (EF 53% on last echo) presenting for vitrectomy. Denies CP, SOB, fever, recent cough, cold or congestion; >4 METS, no GERD sx, N or V today however pt in on ozempic-- discussed this with surgeon who states this case must proceed as he has a retained lens. Will proceed with RSI after labs return. Health Status Allergies: Allergic Reactions (Selected) NKA, Allergies (1) ActiveReaction NKANone Documented Current medications: (Selected) Inpatient Medications Ordered Ciloxan 0.3% ophthalmic solution: 1 drop(s), Operative eye(s), PREOP pharm NS 1,000 mL: 75 mL/hr, Intravenous, Stop: 09/08/23 23:59:00 EDT Pred Forte 1% ophthalmic suspension: 1 drop(s), Ophthalmic, PREOP pharm Sensorcaine-MPF 37.5 mg + lidocaine 200 m.5 mg, 5 mL, mL/hr, Ophthalmic, PREOP pharm Documented Medications Documented [employer] Gen[employer]se 14 Day Sensor kit: CHANGE APPLIANCE EVERY 14 DAYS, 0 Refill(s) Lantus Solostar Pen 100 units/mL 3 mL Pen: 25 unit(s), Subcutaneous, acSupper, 3 mL, 0 Refill(s) Ozempic 2 mg/3 mL (0.25 mg or 0.5 mg dose) subcutaneous solution: 0.5 mg, Subcutaneous, Tuesday, rotate injection sites, 0 Refill(s) Vitamin D3 25 mcg (1000 intl units) oral capsule: 25 mcg, 1 cap(s), Oral, Daily, 0 Refill(s) Vyzulta 0.024% ophthalmic solution: 1 drop(s), Eyes, both, qHS, 5 mL, 0 Refill(s) brimonidine 0.2% ophthalmic solution: 1 drop(s), Eye, right, BID, 0 Refill(s) ketorolac 0.5% ophthalmic solution: 1 drop(s), Eye, right, QID, 0 Refill(s) ofloxacin 0.3% ophthalmic solution: 1 drop(s), Eye, right, QID, 10 mL, 0 Refill(s) timolol maleate 0.5% ophthalmic solution: 1 drop(s), Eye, right, BID, 10 mL, 0 Refill(s), Medications (4) Active Scheduled: (3) bupivacaine 0.75% 37.5 mg + lidocaine 4% 200 mg 37.5 mg 5 mL, Ophthalmic, PREOP pharm ciprofloxacin 0.3% ophthalmic soln bottle 1 drop(s), Operative eye(s), PREOP pharm prednisoLONE acetate ophthalmic 1% Suspension 5 mL 1 drop(s), Ophthalmic, PREOP pharm Continuous: (1) NS (0.9% nacl) 1,000 mL 1,000 mL, Intravenous, 75 mL/hr PRN: (0) Problem list: Active Problems (15) AV fistula Bradycardia Cataract Diabetes mellitus type 2 Dialysis patient Difficulty chewing ESRD (end stage renal disease) Glasses Glaucoma Heart failure High blood pressure Presence of dental prosthetic device Rash Retained lens material Uses self-applied continuous glucose monitoring device Histories Past Medical History: No active or resolved past medical history items have been selected or recorded. Procedure history: Cataract extraction and implantation of intraocular lens ([id number]) on 09/05/2023 at 88 Years. Comments: 09/07/2023 8:24 ISABEL Marte RIGHT EYE Angioplasty ([id number]) in 2021 at 87 Years. Comments: 09/07/2023 10:11 ISABEL Marte LEFT UPPER EXTREMITY FISTULOGRA IWTH CUTTING BALLON ANGIOPLASTY Repair of inguinal hernia ([id number]). Comments: 09/07/2023 8:23 ISABEL Marte UNSURE OF LATERALITY, HAD IN THE LATE 1960'S OR EARLY 1970'S Extn - Extraction of tooth ([id number]). Comments: 09/07/2023 8:23 ISABEL Marte ALL TEETH REMOVED AV - Arteriovenous fistula ([id number]). Comments: 09/07/2023 10:06 ISABEL Marte LEFT ARM Social History Social & Psychosocial Habits Alcohol 09/07/2023 Use: Never Substance Abuse 09/07/2023 Use: Never Tobacco 09/07/2023 Tobacco Use: Former smoker, quit more Type: Cigars Stopped at age: 68 Years Home/Environment 09/07/2023 Living situation: Home with assistance Domestic Concerns None Lives In Single level home Current Home Treatments Blood Glucose monitoring Special Services and Community Resources None Nutrition/Health 09/07/2023 Type of diet: Regular Caffeine intake amount: 1-2 SERVINGS COFFEE PER DAY Appetite Poor Eating Difficulties Chewing, DENTURES, No teeth . Physical Examination Vital Signs(last 24 hrs) Last Charted SBPH 152mmHg (SEP 07 10:55) DBP65 mmHg (SEP 07 10:55) Measurements from flowsheet : Measurements 09/08/2023 11:18 EDT Height 170.2 cm Admission Weight 98.7 kg [place] Body Weight 66.12 kg Type of Scale Used Standing General: Alert and oriented, No acute distress. Airway: Normal mouth, Normal neck range of motion. Mallampati classification: II (soft palate, fauces, uvula visible). Dentition Evaluation: No teeth. Neck: Supple. Respiratory: Lungs are clear to auscultation, Respirations are non-labored. Cardiovascular: Normal rate, Regular rhythm. Heart Sounds: Normal. Neurologic: Alert, Oriented. Review / Management Results review: No qualifying data available . Documentation reviewed: Current records. Assessment and Plan [place] [employer] Anesthesiologists (ASA) physical status classification: Class III. Anesthetic Preoperative Plan Premedication: intravenous. Anesthetic technique: General. Induction: intravenously. Maintenance airway: Oral endotracheal tube, RSI. Postoperative pain management: Per surgeon. Risks discussed: nausea, vomiting, headache, sore throat, dental injury, hypotension, allergic reaction, serious complications. Informed consent: signed by patient. Digitally Signed by JERMAINE SWANSON MD on 09/08/2023 12:14 PM [id number] Miscellaneous Notes* Telephone Encounter - Alanna Veloz LPN - 09/06/2023 6:41 PM EDT Phoned daughter and advised RX sent and advised if area doesn't resolve patient will need to be seen to address as may need alt treatment. She voiced understanding. * Telephone Encounter - Husam Yan MD - 09/06/2023 6:03 PM EDT It sounds like it may be fungal rash like jock itch. I will call in a antifungal cream to use 2 times daily for at least 2 weeks. If he is having pain and skin is breaking open, he may have a secondary bacterial infection. He would need to come in to our office or for appointment to confirm thisand get an antibiotic. * Telephone Encounter - Alanna Veloz LPN - 09/06/2023 5:54 PM EDT Phoned patient's daughter and reviewed message with her. She stated that no fever or chills with rash. No pus, drainage or swelling. She stated he is painful as the skin is irritated/raw and startingto break open. Patient had cataract surgery and daughter reports it did not go well at all and patient has to return for additional surgeries. * Telephone Encounter - Husam Yan MD - 09/06/2023 5:03 PM EDT Has the patient had any fever or chills with this rash? Any pus drainage or swelling? Pain or itching? What surgery did he have yesterday? * Telephone Encounter - Mayela Hopson LPN - 09/06/2023 4:57 PM EDT Patient daughter Norah calling father uses depends and is having irritated skin in groin and scrotal area. He has been using A& D ointment. She can not bring him in for an appt had surgery yesterday. Asking for a rx to be sent to [facility] please. Please advise documented [facility]24 Miscellaneous Notes* Telephone Encounter - Deborah Bedoya LPN - 08/08/2023 10:10 AM EDT Patient daughter Norah called and notified of rx sent. Deborah Bedoya LPN * Telephone Encounter - Husam Yan MD - 08/08/2023 9:36 AM EDT Rx sent. * Telephone Encounter - Demetra Lopez - 08/08/2023 8:27 AM EDT Perla is calling Husam Yan MD today to request Medication Problem (Freestyle gelacio 14 day sensor kit - patient's sensor reader is a gelacio 2 and the sensors ordered by our office are incompatible with his reader )please correct this and send the correct sensor kit to the patient as he is not able to use these sensors with his current CGM. Patient has been identified by name and birthdate. Duration of symptoms: N/A Person calling: self Call patient at: at home [phone] (home) [phone] (cell) Was an appointment scheduled: No Closing statement: Results or non-symptom based questions: Thank you for calling [facility], your call will be returned within the next business day. Demetra Hughes documented in this encounterHighland [facility]03-07-2024 Miscellaneous Notes* Telephone Encounter - Meredith Gonzalez RN - 07/28/2023 8:45 AM EST Date of last office visit in primary care: 05/25/2023 Date of next office visit in primary care: 09/23/2023 * Telephone Encounter - Demetra Lopez - 07/28/2023 8:02 AM EST Patient asking to have this sent to his mail order please advise. Patient has been identified by name and date of : Yes Requested Prescriptions Pending Prescriptions Disp Refills flash glucose sensor (FREESTYLE GELACIO 14 DAY SENSOR) kit 2 Kit 4 Si Each four times daily. RX INSTRUCTIONS: Patient aware RX escripted to mail away pharmacy. No need to notify patient. Demetra Hughes documented in this encounterHigh[facility]02-21-2024 Miscellaneous Notes* Telephone Encounter - Valerie Burris LPN - 07/13/2023 8:14 AM EST Spoke to Norah, daughter and message given that short term prescription was sent to the pharmacy. Valerie Burris LPN * Telephone Encounter - Lauren Arzola APRN.LUZ - 07/13/2023 6:58 AM EST New prescription sent to [facility] Blake Arzola APRN.MANAGER OUTREACH * Telephone Encounter - Heike Lainez - 07/12/2023 8:44 AM EST Patient's daughter, Norah, said a mail order rx for Ozempic was sent in yesterday for this patient. Said patient is completely out of medication. Wants to know if a short term refill can be sent to [facility] in [place]. Do not cancel mail order rx. * Telephone Encounter - Heike Lainez - 07/12/2023 8:43 AM EST Patient has been identified by name and date of : Yes, Provider Yuriy DaughterNorah phones for refill(s): Requested Prescriptions Pending Prescriptions Disp Refills semaglutide (OZEMPIC) 0.25 mg or 0.5 mg(2 mg/1.5 mL) pen Sig: Inject 0.5 mg subcutaneously one time a week. Date of last office visit in primary care: 05/25/2023 Date of next office visit in primary care: 09/23/2023 Please advise. Thank you. Heike Hughes. documented in this encounterHighland [facility] Hospital02-19-2024 Miscellaneous Notes* Telephone Encounter - Marina Huffman - 07/11/2023 8:44 AM EST Patient has been identified by name and date of : Yes, Provider Husam Yan MD Date 07/11/2023 Time 8:47 am Patient phones for refill(s): Requested Prescriptions Pending Prescriptions Disp Refills semaglutide (OZEMPIC) 0.25 mg or 0.5 mg(2 mg/1.5 mL) pen 5 mL 0 Sig: Inject 0.5 mg subcutaneously one time a week. Date of last office visit in primary care: 05/25/2023 Date of next office visit in primary care: 09/23/2023 Patient using [facility] mail order please send new RX to mail order Per [facility] patient has no refills Please advise. Thank you. Marina Anguiano. documented in this encounterHighland [facility] Hospital02-05-2024 History of Present illness Narrative* Danilo Martines - 06/27/2023 11:34 AM EST Last saw pcp: 05/25/23 Subjective: Patient presents to clinic c/o painful toenails. They state that the nails are especially painful with shoe gear and pressure. Patient states that nails 1-5 b/l are painful. He tried cutting his nails himself and cut the 2nd nail too short. Patient admits to being diabetic. No other pedal complaints at this time. Patient states no change in medications or medical history since last visit. Objective: Patient presents to clinic ambulating in nike Vasc: DP and PT pulses are nonpalpable bilateral. CFT is less than 5 seconds bilateral. Skin temperature is warm to cool proximal to distal bilateral. There is moderate edema or varicosities noted. Neuro: Protective sensation is absent to the foot and toes when tested with the 5.07 SWM bilateral.Vibratory sensation is absent at the hallux IPJ bilateral. The hallux is downgoing bilateral. Derm: Nails 1-5 b/l are painful, discolored-yellow, thick, crumbly, dystrophic and with subungal debris. Right 2nd nail is bleeding. Skin is severely dry and hair growth is absent bilateral. There are no hyperkeratosis, ulcerations, scars, verruca or other lesions noted. Ortho: Muscle strength is 5/5 for all pedal groups tested. Ankle joint DF is decreased with the knee extended with no pain or crepitus noted. 1st MPJ ROM is decreased bilateral. Assessment: (E11.3213) 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 edema, without long-term current use of insulin ([facility]) (primary encounter diagnosis) (B35.1) Onychomycosis (M79.672) Left foot pain (M79.671) Right foot pain xerosis Plan: Patient was seen and evaluated. Nails 1-5 bilateral were debrided in length and thickness. Discussed bleeding of right 2nd nail. Noinfection present. Offered antibiotic. He declined. He will apply topical antibiotic on until healed Skin is severely dry. Recommend lotion to feet daily. Patient was instructed on the continued importance of diabetic foot care along with proper diet andkeeping their blood sugar under control to prevent complications. Patient is to RTC in 3-4 months. Danilo Martines DPM * Catalina Ng RN - 06/27/2023 11:09 AM EST Patient presents with: Left Foot - Established Patient, Follow Up, Diabetic Foot Care Right Foot - Established Patient, Follow Up, Diabetic Foot Care Patient presents for diabetic foot care. ZITA- 2/. Patient tried cutting some of his toenails last week. Clipped 1st and 2nd toe. Swelling to bilateral legs, using zip up compression stockings. documented in this encounterHighland [facility] Hospital02-05-2024 Instructions* Patient Instructions* Danilo Martines - 06/27/2023 11:34 AM EST Diabetes Foot Care Instructions When you have diabetes, proper foot care is very important. Poor foot care may lead to amputation of a foot or leg. As a person with diabetes, you are more vulnerable to foot problems, because diabetes can damage your nerves and reduce blood flow to your feet. Here are some diabetes foot care tips to follow: Wash and Dry Your Feet Daily Use mild soaps Use warm water Pat your skin dry; do not rub. Thoroughly dry your feet. After washing, use lotion on your feet to prevent cracking. Do not put lotion between your toes. Examine Your Feet Each Day Check the tops and bottoms of your feet. Have someone else look at your feet if you cannot see them. Check for dry, cracked skin. Look for blisters, cuts, scratches, or other sores. Check for redness, increased warmth, or tenderness when touching any area of your feet. Check for ingrown toenails, corns, and calluses. If you get a blister or sore from your shoes, do not "pop" it. Apply a bandage and wear a differentpair of shoes. Take Care of Your Toenails Cut toenails after bathing, when they are soft. Cut toenails straight across and smooth with a nail file. Avoid cutting into the corners of toes. Do not cut cuticles. If you have neuropathy (or decreased sensation in your feet) a hand riveter should always cut your toenails. Be Careful When Exercising Walk and exercise in comfortable shoes. Do not exercise when you have open sores on your feet. Protect Your Feet With Shoes and Socks Never go barefoot. Always protect your feet by wearing shoes or hard-soled slippers or footwear. Avoid shoes with high heels and pointed toes. Avoid shoes that expose your toes or heels (such as open-toed shoes or sandals). These types of shoes increase your risk for injury and potential infections. Try on new footwear with the type of socks you usually wear. Do not wear new shoes for more than an hour at a time. Change your socks daily. Look and feel inside your shoes before putting them on to make sure there are no foreign objects orrough areas. Avoid tight socks. Wear natural-fiber socks (cotton, wool, or a cotton-wool blend). Wear special shoes if your health care provider recommends them. Wear shoes/boots that will protect your feet from various weather conditions (cold, moisture, etc.). Make sure your shoes fit properly. If you have neuropathy (nerve damage), you may not notice that your shoes are too tight. Perform the "footwear test" described below. Footwear Test Use this simple test to see if your shoes fit correctly: Stand on a piece of paper. (Make sure you are standing and not sitting, because your foot changes shape when you stand.) Trace the outline of your foot. Trace the outline of your shoe. Compare the tracings: Is the shoe too narrow? Is your foot crammed into the shoe? The shoe should be at least 1/2 inch longer than your longest toe and as wide as your foot. Proper Shoe Choices The following types of shoes are best for people with diabetes Closed toes and heels Leather uppers without a seam inside At least 1/2 inch extra space at the end of your longest toe Inside of shoe should be soft with no rough areas Outer sole should be made of stiff material Shoes should be at least as wide as your feet Tips for Foot Care in Diabetes Don't wait to treat a minor foot problem if you have diabetes. Follow your health care provider's guidelines and first aid guidelines. Report foot injuries and infections to your health care provider immediately. Check water temperature with your elbow, not your foot. Do not use a heating pad on your feet. Do not cross your legs. Do not self-treat your corns, calluses, or other foot problems. Go to your health care provider or hand riveter to treat these conditions. documented in this encounterHighland [facility] Hospital10-24-2023 Miscellaneous Notes* Telephone Encounter - Mayela Hopson LPN - 03/15/2023 9:56 AM EDT [facility] from [facility] requesting copy of immunization record for flu shot information be faxed to [phone]. Printed and faxed as requested. documented in this encounterHighland District Hospital10-17-2023 Miscellaneous Notes* Telephone Encounter - Mayela Hopson LPN - 03/08/2023 9:13 AM EDT Phoned patient daughter Norah and aware rx sent to pharmacy from PCP. * Telephone Encounter - Husam Yan MD - 03/08/2023 8:55 AM EDT Rx sent * Telephone Encounter - Maite Ribeiro - 03/08/2023 8:22 AM EDT Patient's daughter calling and states that the medication Ozempic was not called into patient's mail order pharmacy. [facility]. documented in this encounterHighland District Hospital10-05-2023 Miscellaneous Notes* Telephone Encounter - Margret Linares LPN - 02/24/2023 1:12 PM EDT Called the pharmacy and this was billed through insurance and picked up in 02/22/23. * Telephone Encounter - Margret Linares LPN - 02/24/2023 1:09 PM EDT PERLA THOMPSON (Mixon: [id number]) Rx #: [id number] Ozempic (0.25 or 0.5 MG/DOSE) 2MG/3ML pen-injectors Form [employer] Form Created 3 days ago Sent to Plan 20 hours ago Plan Response 20 hours ago Submit Clinical Questions 20 hours ago Determination Favorable 1 hour ago Message from Plan PA Case: [id number], Status: Approved, Coverage Starts on: 02/24/2023 12:15:13 PM, Coverage Ends on: 02/24/2023 12:15:13 PM. Questions? Contact . documented in this encounterHighland District Hospital08-15-2023 Telephone encounter Note * Telephone Encounter - Magaly Bhakta - 01/04/2023 11:36 AM EDT Patient has been identified by name and date of : Yes Last office visit in this department: 12/06/2022 RX INSTRUCTIONS: Patient aware RX will be sent to pharmacy. No need to notify patient. Patient phones requesting refills as follows: Requested Prescriptions Pending Prescriptions Disp Refills semaglutide (OZEMPIC) 0.25 mg or 0.5 mg(2 mg/1.5 mL) pen 4 mL 0 Sig: Inject 0.25 mg subcutaneously one time a week for 28 days, THEN 0.5 mg one time a week. Please review and advise. Magaly Bhkata [facility]08-15-2023 Miscellaneous Notes* Telephone Encounter - Magaly Bhakta - 01/04/2023 11:36 AM EDT Patient has been identified by name and date of : Yes Last office visit in this department: 12/06/2022 RX INSTRUCTIONS: Patient aware RX will be sent to pharmacy. No need to notify patient. Patient phones requesting refills as follows: Requested Prescriptions Pending Prescriptions Disp Refills semaglutide (OZEMPIC) 0.25 mg or 0.5 mg(2 mg/1.5 mL) pen 4 mL 0 Sig: Inject 0.25 mg subcutaneously one time a week for 28 days, THEN 0.5 mg one time a week. Please review and advise. Magaly Bhakta documented in this encounterHighland District Hospital07-17-2023 Instructions* Patient Instructions* Lauren Arzola APRN.MANAGER OUTREACH - 12/06/2022 9:40 AM EDT WHAT YOU CAN DO TO PREVENT FALLS Many falls can be prevented. By making some changes, you can lower your chances of falling. Four things YOU can do to prevent falls for you* and your caregiver 1. Begin a regular exercise program Exercise is one of the most important ways to lower your chances of falling. It makes you stronger and helps you feel better. Exercises that improve balance and coordination (like Roberto Chi) are the most helpful. Lack of exercise leads to weakness and increases your chances of falling. Ask your doctor or health care provider about the best type of exercise program for you. 2. Have your health care provider review your medicines Have your doctor or pharmacist review all the medicines you take, even [id number]-[id number] medicines. As you get older, the way medicines work in your body can change. Some medicines, or combinations of medicines, can make you sleepy or dizzy andcan cause you to fall. 3. Have your vision checked Have your eyes checked by an eye doctor at least once a year. You may be wearing the wrong glasses or have a condition like glaucoma or cataracts that limits your vision. Poor vision can increase your chances of falling. 4. Make your home safer About half of all falls happen at home. To make your home safer: Remove things you can trip over (like papers, books, clothes, and shoes) from stairs and places where you walk. Remove small throw rugs or use double-sided tape to keep the rugs from slipping. Keep items you use often in cabinets you can reach easily without using a step stool. Have grab bars put in next to your toilet and in the tub or shower. Use non-slip mats in the bathtub and on shower floors. Improve the lighting in your home. As you get older, you need brighter lights to see well. Hang light-weight curtains or shades to reduce glare. Have handrails and lights put in on all staircases. Wear shoes both inside and outside the house. Avoid going barefoot or wearing slippers. For more information, contact: Centers for Disease Control and Prevention www.cdc.gov/injury * This information may not apply if you have certain medical conditions. documented in this encounterHighland District Hospital07-17-2023 History of Present illness Narrative* Lauren Arzola APRN.CNP - 12/06/2022 9:09 AM EDT 12/06/2022 Patient presents with: Follow Up: 3 month SUBJECTIVE: This is a 87 year old, accompanied by daughter, that is here today for Above Complaints. Since last office visit has been in good health without ER visits or hospitalizations. Admits to two falls in the last years. Once he fell back onto his bed. Was not seen for falls or had significant injuries. Using cane. Reports he has bad knees. DIABETES MELLITUS: Mr. Thompson was last seen on 09/06/2022. Since our last visit he denies excessive thirst or increased frequency of urination, chest pain or dyspnea , numbness, tingling or pain in extremities, new or unusual visual symptoms, low sugar/hypoglycemic reactions, weight loss/gain, lighth eadedness/dizziness, and bowel changes/loose stools. Follows a diabetic diet most of the time. He is compliant with medication(s) and is tolerating med(s) without any side effects. He reports checking his glucose on a once a day schedule with sugars in the <150 range. Patient's last HgA1C was Hemoglobin A1C (%) Date Value 06/07/2022 10.3 03/05/2022 8.9 02/25/2021 7.2 06/14/2019 8.0 Hemoglobin A1C (POCT) (%) Date Value 09/06/2022 8.4 ) Last Ophthalmology exam was within the past 12 months CKD: Follows up with Dr. Khoury [facility]. Has dialysis three times a week. Tolerating well. Follows with cardiology for hx of CHF and Mobitz type I AV block. Last office visit was 09/24/2022.Norvasc 5 mg three days a week on non dialysis days added- patient reports he is not taking as it made him dizzy. Wearing compression hose. Denies SOB, dyspnea, cough, chest pain, palpitations or increased swelling from base line PAST MEDICAL HISTORY Diagnosis Date Chronic diastolic heart failure (HCC) Dr. 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 Jimenez Type II or unspecified type diabetes mellitus without mention of complication, not stated as uncontrolled Unspecified essential hypertension ALLERGIES Actos [Pioglitazone Hcl], Atenolol, Januvia [Sitagliptin], and Zocor [Simvastatin] MEDICATIONS Current Outpatient Medications Medication Sig insulin glargine (LANTUS SOLOSTAR U-100 INSULIN) 100 unit/mL (3 mL) Inject 20 Units subcutaneously once daily. semaglutide (OZEMPIC) 0.25 mg or 0.5 mg(2 mg/1.5 mL) pen Inject 0.25 mg subcutaneously one time a week for 28 days, THEN 0.5 mg one time a week. blood sugar diagnostic (BLOOD GLUCOSE TEST) test strip Test blood sugar(s) 2 times daily. Dx: Type 2 DM -E11.65 Insulin: No blood sugar diagnostic (ACCU-CHEK LISA PLUS TEST STRP) test strip Test blood sugar(s) 2x daily. DxE11.65. Insulin: No. mecobalamin (B12 ACTIVE ORAL) Take 1 tablet by mouth once daily. Insulin Perryman, Disposable, (BD ULTRA-FINE SHAHEEN PEN NEEDLE) 32 gauge x 5/32" Use one needle for each dose. 1x/day. lancets (FREESTYLE LANCETS) 28 gauge 1 Each once daily. blood sugar diagnostic (BLOOD GLUCOSE TEST) test strip Test blood sugar(s) 2x daily. Dx: E11.65. Insulin: No COMPOUNDED PRESCRIPTION True Metrix Test Strips. Test blood sugar(s) 2x daily. Dx: E11.65. Insulin:No COMPOUNDED PRESCRIPTION True Metrix Lancets. Test blood sugar(s) 2x daily. Dx: E11.65. Insulin: No cholecalciferol (VITAMIN D3) 5,000 unit tab Take 5,000 Units by mouth once daily. Blood-Glucose Meter [facility] [place] Dispense 1 kit. Dx: E11.65 Aspirin 81 mg tab Take 1 tablet by mouth once daily. Take with food. COMPOUNDED PRESCRIPTION Crill Oil, Take 1 tablet daily. COMPOUNDED PRESCRIPTION robin msm take two in morning No current facility-administered medications for this visit. Medications and allergies reviewed by this provider. SOCIAL HISTORY Social History Tobacco Use Smoking status: Former Types: Cigars Smokeless tobacco: Never Substance Use Topics Alcohol use: Yes Alcohol/week: 1.7 standard drinks of alcohol Comment: rarely Drug use: No REVIEW OF SYSTEMS All other reviewed and negative other than HPI. OBJECTIVE: BP 128/60 Pulse (!) 50 Resp 16 Wt 98 kg (216 lb) SpO2 96% BMI 33.83 kg/m . Vital signs reviewed by this provider. APPEARANCE Well appearing, alert, in no acute distress, well-hydrated, well nourished. EYES conjunctiva and sclera normal. HEART RRR with normal S1 and S2, no murmurs, no gallops, no JVD appreciated LUNG clear to auscultation. No wheezes, rhonchi or rales EXTREMITIES Extremities normal, No deformities, No skin discoloration, and Normal pulses bilaterally. Trace edema bilateral ankles SKIN Skin color, texture, turgor normal, no suspicious rashes or lesions to exposed skin ADVANCE DIRECTIVE DISCUSSION Never done COVID-19 VACCINE(4 - Additional dose for Len series) due on 07/06/2022 DIABETIC FOOT EXAM due on 09/02/2022 SHINGRIX VACCINE(1 of 2) due on 06/07/2023 INFLUENZA(1) due on 01/21/2023 DILATED RETINAL EXAM due on 02/08/2023 LDL CHOLESTEROL due on 03/05/2023 HBA1C due on 03/08/2023 DTAP,TDAP,TD(3 - Td or Tdap) due on 04/26/2028 DEPRESSION ASSESSMENT Completed PNEUMOCOCCAL: 65+ Completed ASSESSMENT/PLAN: 1. 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, without long-term current use of insulin (HCC) - ICD9: 250.50, 362.05, 362.07, ICD10: E11.3313 (primary diagnosis) - does not want to increase Lantus or ozempic - discussed better control of diabetes helps preserve the kidney function he has- verbalizes understanding- still declining increasing medication - work on lower carbohydrate diet and exercise - close to goal of less than 8.0% - HEMOGLOBIN A1C (POC) - follow-up in 3 months, sooner if needed 2. Lower extremity edema - ICD9: 782.3, ICD10: R60.0 - continue with compression hose on in the AM off in PM 3. 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 Chronic diastolic heart failure (HCC) - ICD9: 428.32, ICD10: I50.32 - stable - follow-up with cardiology as recommended 5. Essential hypertension - ICD9: 401.9, ICD10: I10 - Controlled - Continue current medications - Recommend home blood pressure monitoring, to bring results to next visit - Encouraged sodium restriction, DASH or Mediterranean diet - Recommend regular aerobic exercise - Discussed need for and benefit of weight loss. BMI 33.83 kg/(m^2) - Follow up in 3 months for hypertension visit 6. Mobitz (type) I (Wenckebach's) atrioventricular block - ICD9: 426.13, ICD10: I44.1 - plan as in #4 7. At high risk for falls - ICD9: V15.88, ICD10: Z91.81 FALLS RISK PLAN: Overall, he is doing very well. Appropriate for community-based exercise programs.List of local resources and falls prevention materials provided. - continue to use kostas Arzola APRN.CNP Prescription instructions reviewed with patient as applicable. Patient advised if symptoms do not improve or if symptoms worsen sooner, to contact their primary care physician. Potential red flag symptoms discussed with the patient. Reviewed appropriate action plan to take if red flag symptoms occur. Patient agreeable to treatment plan. I spent a total of 30 minutes on the date of the service which included preparing to see the patient, [id number] patient care, completing clinical documentation, obtaining and/or reviewing separately obtained history, performing a medically appropriate examination, counseling and educating the pat ient/family/caregiver, and ordering medications, tests, or procedures. documented in this encounterHigh[facility]06-26-2023 Miscellaneous Notes* Telephone Encounter - Liza Johnson RN - 11/15/2022 11:58 AM EDT Patient's daughter calls and states that patient needs refills on Lantus and Ozempic. Daughter alsoreports that local pharmacy is not able to fill testing strips due to wrong strips being sent out previously. Daughter had sent back wrong testing strips to pharmacy and now is waiting for it to be credited back to account and insurance. Daughter states that pharmacy would refill prescription of office calls them. Last Office Visit: 09/06/2022 Future Office Visit: 12/06/2022 Requested Prescriptions Pending Prescriptions Disp Refills insulin glargine (LANTUS SOLOSTAR U-100 INSULIN) 100 unit/mL (3 mL) 18 mL 1 Sig: Inject 20 Units subcutaneously once daily. semaglutide (OZEMPIC) 0.25 mg or 0.5 mg(2 mg/1.5 mL) pen 4 mL 0 Sig: Inject 0.25 mg subcutaneously one time a week for 28 days, THEN 0.5 mg one time a week. Date of Last Labs: 09/06/2022 documented in this encounterHighland [facility] Hospital06-15-2023 Miscellaneous Notes* Telephone Encounter - RAY Ruvalcaba - 11/04/2022 11:15 AM EDT Patient's daughter called back in, the test strips are called True Metrix, they would like these sent to [facility] in [place]. Please review. RAY Ruvalcaba November 04, 2022 11:16 AM * Telephone Encounter - Liza Johnson RN - 11/04/2022 11:01 AM EDT Patient's daughter call and states that wrong testing strips prescription was sent to pharmacy. Testing strips were also sent to mail order pharmacy and not local pharmacy. Testing strips do not fit into current glucometer. Unsure the name of glucometer. Asking for orders for right testing strips to be sent to [facility] [place]. Please review and advise, Liza Johnson RN documented in this encounterHighland [facility] Hospital06-07-2023 Miscellaneous Notes* Telephone Encounter - Harper Fisher - 10/27/2022 2:29 PM EDT Patient has been identified by name and date of : Yes Last office visit in this department: 09/06/2022 RX INSTRUCTIONS: Patient aware RX will be sent to pharmacy. No need to notify patient. Patient phones requesting refills as follows: Requested Prescriptions Pending Prescriptions Disp Refills blood sugar diagnostic (ACCU-CHEK LISA PLUS TEST STRP) test strip 200 Strip 3 Sig: Test blood sugar(s) 2x daily. Dx E11.65. Insulin: No. Please review and advise. Harper Fisher documented in this encounterHighland [facility] Hospital04-17-2023 History of Present illness Narrative* Lauren Arzola, SURGICAL ASSISTANT.MANAGER OUTREACH - 09/06/2022 9:50 AM EDT 09/06/2022 Patient presents with: F/U 3 Month SUBJECTIVE: This is a 87 year old that is here today for Above Complaints. DIABETES MELLITUS: Mr. Thompson was last seen on 06/07/2022. Since his last visit he denies excessive thirst or increased frequency of urination, chest pain or dyspnea , numbness, tingling or pain in extremities, new or unusual visual symptoms, low sugar/hypoglycemic reactions, weight loss/gain, lighth eadedness/dizziness, and bowel changes/loose stools. Patient admits to have low sugar/hypoglycemic reactions less than once a week. Follows a diabetic diet most of the time. He is compliant with medication(s) and is tolerating med(s) without any side effects. He reports checking his glucose on a once a day schedule with sugars in the fasting 150 range. Patient's last HgA1C was Hemoglobin A1C (%) Date Value 06/07/2022 10.3 03/05/2022 8.9 02/25/2021 7.2 06/14/2019 8.0 ) Component Latest Ref Rng & Units 09/06/2022 Hemoglobin A1C (POCT) 4.2 - 5.6 % 8.4 (A) Last Ophthalmology exam was within the past 12 months Last Podiatry exam: See Dr. Martines yearly. Patient reports they check his feet three times a weekat dialysis CKD: Follows up with Dr. Khoury [facility]. Has dialysis three times a week. Tolerating well. Follows with cardiology for hx of CHF and Mobitz type I AV block. Last office visit was 05/19/2022.No medications changes at that time. Has follow-up with cardiology in October. Wearing compression hose. Denies SOB, dyspnea, cough, chest pain, palpitations or increased swelling from base line PAST MEDICAL HISTORY Diagnosis Date Chronic diastolic heart failure (HCC) Dr. 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 Jimenez Type II or unspecified type diabetes mellitus without mention of complication, not stated as uncontrolled Unspecified essential hypertension ALLERGIES Actos [Pioglitazone Hcl], Atenolol, Januvia [Sitagliptin], and Zocor [Simvastatin] MEDICATIONS Current Outpatient Medications Medication Sig semaglutide (OZEMPIC) 0.25 mg or 0.5 mg(2 mg/1.5 mL) pen Inject 0.25 mg subcutaneously one time a week for 28 days, THEN 0.5 mg one time a week. insulin glargine (LANTUS SOLOSTAR U-100 INSULIN) 100 unit/mL (3 mL) Inject 20 Units subcutaneously once daily. mecobalamin (B12 ACTIVE ORAL) Take 1 tablet by mouth once daily. blood sugar diagnostic (ACCU-CHEK LISA PLUS TEST STRP) test strip Test blood sugar(s) 2x daily. DxE11.65. Insulin: No. Insulin Perryman, Disposable, (BD ULTRA-FINE SHAHEEN PEN NEEDLE) 32 gauge x 532" Use one needle for each dose. 1x/day. lancets (FREESTYLE LANCETS) 28 gauge 1 Each once daily. blood sugar diagnostic (BLOOD GLUCOSE TEST) test strip Test blood sugar(s) 2x daily. Dx: E11.65. Insulin: No COMPOUNDED PRESCRIPTION True Metrix Test Strips. Test blood sugar(s) 2x daily. Dx: E11.65. Insulin:No COMPOUNDED PRESCRIPTION True Metrix Lancets. Test blood sugar(s) 2x daily. Dx: E11.65. Insulin: No cholecalciferol (VITAMIN D3) 5,000 unit tab Take 5,000 Units by mouth once daily. Blood-Glucose Meter [facility] Dispense 1 kit. Dx: E11.65 Aspirin 81 mg tab Take 1 tablet by mouth once daily. Take with food. COMPOUNDED PRESCRIPTION Crill Oil, Take 1 tablet daily. COMPOUNDED PRESCRIPTION robin msm take two in morning No current facility-administered medications for this visit. Medications and allergies reviewed by this provider. SOCIAL HISTORY Social History Tobacco Use Smoking status: Former Types: Cigars Smokeless tobacco: Never Substance Use Topics Alcohol use: Yes Alcohol/week: 1.7 standard drinks Comment: rarely Drug use: No REVIEW OF SYSTEMS All other reviewed and negative other than HPI. OBJECTIVE: BP 138/62 Pulse (!) 58 Resp 18 Wt 99.5 kg (219 lb 6.4 oz) SpO2 93% BMI 34.36 kg/m . Vitalsigns reviewed by this provider. APPEARANCE Well appearing, alert, in no acute distress, well-hydrated, well nourished. EYES PERRLA, conjunctiva and sclera normal. HEART RRR with normal S1 and S2, no murmurs, no gallops, no JVD appreciated LUNG clear to auscultation EXTREMITIES Extremities normal, No deformities. Compression hose intact SKIN Skin color, texture, turgor normal, no suspicious rashes or lesions Component Latest Ref Rng & Units 06/07/2022 Protein, Total 6.3 - 8.0 g/dL 7.3 Albumin 3.9 - 4.9 g/dL 3.9 Calcium 8.5 - 10.2 mg/dL 9.9 Bilirubin, Total 0.2 - 1.3 mg/dL 0.3 Alkaline Phosphatase 38 - 113 U/L 64 AST 14 - 40 U/L 14 ALT 10 - 54 U/L 12 Glucose 74 - 99 mg/dL 311 (H) BUN 9 - 24 mg/dL 60 (H) Creatinine 0.73 - 1.22 mg/dL 5.01 (H) Sodium 136 - 144 mmol/L 137 Potassium 3.7 - 5.1 mmol/L 4.9 Chloride 97 - 105 mmol/L 94 (L) CO2 22 - 30 mmol/L 27 Anion Gap 9 - 18 mmol/L 16 eGFR >=60 mL/min/1.73m 11 (L) Hemoglobin A1C 4.3 - 5.6 % 10.3 (H) Estimated Average Glucose mg/dL 249 Component Latest Ref Rng & Units 03/05/2022 Total Cholesterol, Nonfasting <200 mg/dL 146 Triglycerides, Nonfasting <150 mg/dL 55 HDL Cholesterol, Nonfasting >39 mg/dL 46 LDL Cholesterol, Nonfasting <100 mg/dL 89 Non HDL Cholesterol, Nonfasting <130 mg/dL 100 VLDL Cholesterol, Nonfasting <30 mg/dL 11 Total Chol/HDL Ratio, Nonfasting <5.10 mg/dL 3.17 LDL/HDL Ratio, Nonfasting <2.54 mg/dL 1.93 ADVANCE DIRECTIVE DISCUSSION Never done DIABETIC FOOT EXAM due on 09/02/2022 SHINGRIX VACCINE(1 of 2) due on 06/07/2023 HBA1C due on 12/06/2022 DILATED RETINAL EXAM due on 02/08/2023 LDL CHOLESTEROL due on 03/05/2023 DTAP,TDAP,TD(3 - Td or Tdap) due on 04/26/2028 INFLUENZA Completed DEPRESSION ASSESSMENT Completed COVID-19 VACCINE Completed PNEUMOCOCCAL: 65+ Completed ASSESSMENT/PLAN: 1. 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, without long-term current use of insulin (HCC) - ICD9: 250.50, 362.05, 362.07, ICD10: E11.3313 (primary diagnosis) - getting close to goal - patient wants to work in diet and exercise - will continue Lantus and ozempic - check blood sugars twice a day - HGB A1C - HEMOGLOBIN A1C (POC) - follow-up in 3 months if not at [place] increase ozempic 2. 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) - ICD9: 585.6, V45.11, ICD10: N18.6, Z99.2 - continue current medications and follow-up with nephrology and dialysis as scheduled 3. Chronic diastolic heart failure (HCC) - ICD9: 428.32, ICD10: I50.32 - stable - continue current medications - follow-up with cardiology as scheduled Lauren Podlogar, SURGICAL ASSISTANT.MANAGER OUTREACH Prescription instructions reviewed with patient as applicable. Patient advised if symptoms do not improve or if symptoms worsen sooner, to contact their primary care physician. Potential red flag symptoms discussed with the patient. Reviewed appropriate action plan to take if red flag symptoms occur. Patient agreeable to treatment plan. I spent a total of 25 minutes on the date of the service which included preparing to see the patient, [id number] patient care, completing clinical documentation, obtaining and/or reviewing separately obtained history, performing a medically appropriate examination, counseling and educating the pat ient/family/caregiver, and ordering medications, tests, or procedures. documented in this encounterHighland [facility] Hospital03-30-2023 Miscellaneous Notes* Telephone Encounter - Aimee Nicole - 08/19/2022 10:15 AM EDT Patient has been identified by name and date of : Yes, Provider YURIY Patient phones for refill(s): Requested Prescriptions Pending Prescriptions Disp Refills semaglutide (OZEMPIC) 0.25 mg or 0.5 mg(2 mg/1.5 mL) pen 4 mL 0 Sig: Inject 0.25 mg subcutaneously one time a week for 28 days, THEN 0.5 mg one time a week. Date of last office visit in primary care: 06/07/22 Labs-06/07/22 NOV-09/06/22 med filled 06/07/22 Last 2 Encounter Wt Readings: Date: Wt: 06/07/2022 98.7 kg (217 lb 9.6 oz) 03/05/2022 98.2 kg (216 lb 6.4 oz) Previous labs/tests for medication: Not applicable Please advise. Thank you. Aimee Nicole documented in this encounterHighland [facility] Hospital01-17-2023 Miscellaneous Notes* Telephone Encounter - Lauren Arzola APRN.CNP - 06/08/2022 10:10 AM EST Ozempic sent to mail order. Lauren Arzola APRN.CNP * Telephone Encounter - Deborah Bedoya LPN - 06/08/2022 10:00 AM EST Patients daughter telephoned and notified of results and recommendations. Voices understanding. [facility] stated they wont have the ozempic until sometime in Jun. Could you send rx to patients mail order pharmacy. Patients daughter will talk with patient about the pharmacy and diabetes structured program but thinks patient will decline. Deborah Bedoya LPN * Telephone Encounter - Deborah Bedoya LPN - 06/08/2022 9:59 AM EST ----- Message from Husam Yan MD sent at 06/08/2022 8:13 AM EST ----- Patient's diabetes remains poorly controlled with worsening A1c up to 10.3. sugar 311 yesterday. Kidney function remains in ESRD range. Recommend patient start the Ozempic as discussed and continue his Lantus. Would also recommend he follow up with diabetes structured program or pharmD to help manage his poorly controlled DM. If agreeable, will place referral order. documented in this encounterHighland District Hospital01-16-2023 History of Present illness Narrative* Husam Yan MD - 06/07/2022 10:31 AM EST Chief Complaint Patient presents with: Follow Up: 3 month HPI Perla Thompson is a 87 year old male who presents here today for Above Complaints. Accompanied todayby daughter. Has been in good health without recent falls, hospitalizations or ER visits. DIABETES MELLITUS: Mr. Thompson was last seen 3 months ago. At last OV, patient was getting hypoglycemia on his Lantus at 20 units daily and we recommended adding on meal time insulin which he refused. He was directed to take 18 units of his Lantus, but is back to taking 20 units. He wanted to work ondiabetic diet instead of adding on meal time insulin, but he has not been compliant with this. . Since our last visit he denies numbness, tingling or pain in extremities, new or unusual visual symptoms, and low sugar/hypoglycemic reactions. Admits to increased thirst with hyperglycemia. Follows a diabetic diet generally not very much. Only taking his Lantus. Not taking his Glipizide because he feels it makes him urinate. He reports checking his glucose on a once a day schedule with sugars in the fasting 120-180 range typically. Since tank has been getting readings in the high 200 to low 300's from eating too much candy. Patient's last HgA1C was Hemoglobin A1C (%) Date Value 03/05/2022 8.9 09/02/2021 8.4 02/25/2021 7.2 06/14/2019 8.0 ) Last Ophthalmology exam was within the past 12 months-Moderate DM retinopathy bilaterally in January 2022. Last Podiatry exam was within the past 12 months. States that dialysis checks his feet 3 times per week. Due for f/u with podiatry. BP elevated on initial check today. States that his BP has been low after dialysis and they have not made any changes to his regimen. No changes to regimen at his OV with Dr. Bacon last month. BP elevated there, but with his low BP after dialysis, they recommended he f/u with nephrology. Same with LE edema. PHQ-2 / Depression screen He in the past two weeks denies having felt down, depressed, hopeless or with little interest or pleasure in doing things. Influenza vaccine administered at dialysis. Past medical history, appointments, medications, allergies reviewed. Previous Medical History PAST MEDICAL HISTORY Diagnosis Date Chronic diastolic heart failure (HCC) Dr. Bacon 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) Josh, Thalex, Sat Glaucoma Dr Jimenez LBBB (left bundle branch block) Dr. 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 Jimenez Type II or unspecified type diabetes mellitus without mention of complication, not stated as uncontrolled Unspecified essential hypertension Previous Surgical History PAST SURGICAL HISTORY Procedure Laterality Date APPENDECTOMY PAST SURGICAL HISTORY OF Left 11/27/2020 upper extremity fistulogram with left radial artery angioplasty and left cephalic vein to radial artery anastomotic 08/22 powerflex angioplasty PAST SURGICAL HISTORY OF Bilateral 01/2022 laser surgery for glaucoma RPR 1ST INGUN HRNA AGE 7 YRS/> REDUCIBLE left Hernia repair, inguinal Family History FAMILY HISTORY Problem Relation Age of Onset Hypertension Mother Diabetes Father Patient Allergies ALLERGIES Allergen Reactions Actos [Pioglitazone* Other: See Comments fatigue Atenolol GI Upset 100 mg causes nausea Januvia [Sitaglipti* Other: See Comments Januvia 100mg dizziness, can tolerate 50mg Zocor [Simvastatin] myalgias Current Medications Current Outpatient Medications on File Prior to Visit Medication Sig mecobalamin (B12 ACTIVE ORAL) Take 1 tablet by mouth once daily. insulin glargine (LANTUS SOLOSTAR U-100 INSULIN) 100 unit/mL (3 mL) Inject 18 Units subcutaneously once daily. (Patient taking differently: Inject 20 Units subcutaneously once daily.) glipiZIDE (GLUCOTROL) 10 mg tablet Take 1 tablet by mouth twice daily before meals. blood sugar diagnostic (ACCU-CHEK LISA PLUS TEST STRP) test strip Test blood sugar(s) 2x daily. DxE11.65. Insulin: No. Insulin Perryman, Disposable, (BD ULTRA-FINE SHAHEEN PEN NEEDLE) 32 gauge x 5/32" Use one needle for each dose. 1x/day. lancets (FREESTYLE LANCETS) 28 gauge 1 Each once daily. blood sugar diagnostic (BLOOD GLUCOSE TEST) test strip Test blood sugar(s) 2x daily. Dx: E11.65. Insulin: No COMPOUNDED PRESCRIPTION True Metrix Test Strips. Test blood sugar(s) 2x daily. Dx: E11.65. Insulin:No cholecalciferol (VITAMIN D3) 5,000 unit tab Take 5,000 Units by mouth once daily. Blood-Glucose Meter [facility] [place] Dispense 1 kit. Dx: E11.65 Aspirin 81 mg tab Take 1 tablet by mouth once daily. Take with food. COMPOUNDED PRESCRIPTION Crill Oil, Take 1 tablet daily. COMPOUNDED PRESCRIPTION robin msm take two in morning COMPOUNDED PRESCRIPTION True Metrix Lancets. Test blood sugar(s) 2x daily. Dx: E11.65. Insulin: No No current facility-administered medications on file prior to visit. Social History Social History Tobacco Use Smoking status: Former Types: Cigars Smokeless tobacco: Never Substance Use Topics Alcohol use: Yes Alcohol/week: 1.7 standard drinks Comment: rarely Drug use: No Review of Symptoms REVIEW OF SYSTEMS GENERAL: No weight loss, malaise or fevers RESPIRATORY: Negative for cough, hemoptysis, wheezing, COPD, dyspnea or shortness of breath CARDIOVASCULAR: Negative for chest pain, leg swelling, hypertension, CHF or palpitations GI: No nausea, vomiting, or diarrhea SKIN: Negative for lesions, rash, and itching EXAM: BP 150/60 Pulse (!) 58 Resp 16 Wt 98.7 kg (217 lb 9.6 oz) SpO2 96% BMI 34.08 kg/m General Appearance: Well appearing, alert, in no acute distress, well-hydrated, well nourished.. Skin: Skin color, texture, turgor normal, no suspicious rashes or lesions. Lungs: Lungs clear to auscultation. No wheezing, rhonchi, rales.. Heart: Negative findings: no murmurs, rubs, clicks or gallops, Positive findings: bradycardia. Abdomen: Normal abdominal exam, Abdomen soft, non-tender. Bowel sounds normal. No masses, organomegaly. Extremities: Trace edema to knees bilaterally with compression stockings in place. Health Maintenance List SHINGRIX VACCINE(1 of 2) Never done INFLUENZA(1) due on 01/21/2022 ADVANCE DIRECTIVE DISCUSSION Never done DEPRESSION ASSESSMENT Never done HBA1C due on 06/05/2022 DIABETIC FOOT EXAM due on 09/02/2022 DILATED RETINAL EXAM due on 02/08/2023 LDL CHOLESTEROL due on 03/05/2023 DTAP,TDAP,TD(3 - Td or Tdap) due on 04/26/2028 COVID-19 VACCINE Completed PNEUMOCOCCAL: 65+ Completed Data reviewed Component Latest Ref Rng & Units 09/02/2021 03/05/2022 Protein, Total 6.3 - 8.0 g/dL 7.3 7.2 Albumin 3.9 - 4.9 g/dL 3.9 3.9 Calcium 8.5 - 10.2 mg/dL 9.3 9.1 Bilirubin, Total 0.2 - 1.3 mg/dL 0.2 0.4 Alkaline Phosphatase 38 - 113 U/L 63 56 AST 14 - 40 U/L 15 13 (L) ALT 10 - 54 U/L 11 17 Glucose 74 - 99 mg/dL 236 (H) 239 (H) BUN 9 - 24 mg/dL 54 (H) 49 (H) Creatinine 0.73 - 1.22 mg/dL 4.70 (H) 4.13 (H) Sodium 136 - 144 mmol/L 138 138 Potassium 3.7 - 5.1 mmol/L 5.0 4.9 Chloride 97 - 105 mmol/L 95 (L) 95 (L) CO2 22 - 30 mmol/L 29 30 Anion Gap 9 - 18 mmol/L 14 13 eGFR >=60 mL/min/1.73m 12 (L) 14 (L) WBC 3.70 - 11.00 k/uL 8.66 RBC 4.20 - 6.00 m/uL 3.89 (L) Hemoglobin 13.0 - 17.0 g/dL 11.7 (L) Hematocrit 39.0 - 51.0 % 37.3 (L) MCV 80.0 - 100.0 fL 95.9 MCH 26.0 - 34.0 pg 30.1 MCHC 30.5 - 36.0 g/dL 31.4 RDW-CV 11.5 - 15.0 % 12.6 Platelet Count 150 - 400 k/uL 186 MPV 9.0 - 12.7 fL 12.1 Absolute nRBC <0.01 k/uL <0.01 Total Cholesterol, Nonfasting <200 mg/dL 146 Triglycerides, Nonfasting <150 mg/dL 55 HDL Cholesterol, Nonfasting >39 mg/dL 46 LDL Cholesterol, Nonfasting <100 mg/dL 89 Non HDL Cholesterol, Nonfasting <130 mg/dL 100 VLDL Cholesterol, Nonfasting <30 mg/dL 11 Total Chol/HDL Ratio, Nonfasting <5.10 mg/dL 3.17 LDL/HDL Ratio, Nonfasting <2.54 mg/dL 1.93 Hemoglobin A1C 4.3 - 5.6 % 8.4 (H) 8.9 (H) Estimated Average Glucose mg/dL 194 209 ASSESSMENT/PLAN: 1. 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, without long-term current use of insulin ([facility]) - ICD9: 250.50, 362.05, 362.07, ICD10: E11.3313 (primary diagnosis) Poorly controlled on current regimen. Has refused mealtime insulin in the past. A1c high previouslydespite getting hypoglycemia with lantus. Discussed addition of GLP 1 which would also benefit him due to his heart disease. Patient agreeable to try if insurance will cover. Rx sent to local pharmacy. Continue daily glucose checks and f/u in 3 months. Due for f/u with podiatry. Continue daily footchecks at home and call with any concerns. - HGB A1C - COMP METABOLIC PANEL - OZEMPIC 0.25 MG OR 0.5 MG (2 MG/1.5 ML) SUBCUTANEOUS PEN INJECTOR - INSULIN GLARGINE (U-100) 100 UNIT/ML (3 ML) SUBCUTANEOUS PEN - OZEMPIC 0.25 MG OR 0.5 MG (2 MG/1.5 ML) SUBCUTANEOUS PEN INJECTOR 2. Essential hypertension - ICD9: 401.9, ICD10: I10 - poor control on non dialysis day. - Continue current medication(s) and will have patient f/u with nephrology and dialysis 3 days per week. - Encouraged dietary sodium restriction/DASH diet - Recommended regular aerobic exercise. - Reviewed risks of HTN and principles of treatment - Goal of BP <130/80 3. Mixed hyperlipidemia - ICD9: 272.2, ICD10: E78.2 - good control - Continue current medication. - Encouraged following a low fat, low cholesterol diet. - Discussed the benefits of regular aerobic exercise and weight loss. 4. 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) - ICD9: 585.6, V45.11, ICD10: N18.6, Z99.2 Recommendations per nephrology. Continue dialysis 3 days per week. 5. Chronic diastolic heart failure (HCC) - ICD9: 428.32, ICD10: I50.32 No change to regimen per last OV with cardiology. Denies new/worsening symptoms of CHF. Red flags for re-assessment reviewed with patient in detail. 6. Bradycardia - ICD9: 427.89, ICD10: R00.1 Stable, will monitor. F/u with cardiology. 7. Lower extremity edema - ICD9: 782.3, ICD10: R60.0 Improved with dialysis and compression stockings. 8. Noncompliance of patient with dietary regimen - ICD9: V15.81, ICD10: Z91.119 Discussed importance of low carb diet. Husam Yan MD documented in this encounterHigh[facility]10-24-2022 Miscellaneous Notes* Telephone Encounter - Yamel Roe Ma - 03/15/2022 11:00 AM EDT Call to daughterNorah notified her of message below, verbalized understanding. Yamel Roe Ma * Telephone Encounter - Husam Yan MD - 03/15/2022 10:19 AM EDT Reviewed. Would recommend checking his sugars when fasting and before bed and bring in readings to next OV. * Telephone Encounter - Breanne Carvalho RN - 03/15/2022 10:12 AM EDT DaughterNorah, phoned to let pcp know, patient declined to add novolog. Patient plans to continuetaking lantus as ordered and work to better manage meals and diet instead. * Telephone Encounter - Deborah Bedoya LPN - 03/09/2022 2:52 PM EDT Patient telephoned but line busy. Daughter Norah telephoned. Results and recommendations below given. Norah states she will talk with her father and then get back with the office. Deborah Bedoya LPN * Telephone Encounter - Deborah Bedoya LPN - 03/09/2022 2:49 PM EDT ----- Message from Husam Yan MD sent at 03/09/2022 11:03 AM EDT ----- Diabetes control is worsening with A1c up to 8.9 from 8.4. with his fasting hypoglycemia on Lantus,would recommend adding on meal time insulin to help control his sugars after eating. Patient would need to check sugars before each meal and before bed with this new regimen. If agreeable, will call in Novolog/Traackr to his pharmacy. Kidney function in ESRD range. Continue with dialysis. Cholesterol looks good. documented in this encounterHighland [facility]10-14-2022 History of Present illness Narrative* Husam Yan MD - 03/05/2022 9:49 AM EDT Chief Complaint Patient presents with: Follow Up: 6 month HPI Perla Thompson is a 86 year old male who presents here today for 6 month follow up. Accompanied today by daughter Norah. No recent hospitalizations, ER visits, or falls. DIABETES MELLITUS: Mr. Thompson was last seen 6 months ago. Since our last visit he denies excessive thirst or increased frequency of urination, numbness, tingling or pain in extremities, and new or unusual visual symptoms. Follows a diabetic diet most of the time. Taking 20 units of Lantus instead of18 units. Not taking his glipizide the night before and morning of his dialysis because he urinates more after taking it. He reports checking his glucose on a once a day schedule with sugars in the fasting <150 range. Has had total of 3 episodes of hypoglycemia into the 70's in the last month. Has hard time getting out of bed, shaking, dizzy, blurred vision with these episodes. Takes glucose tablets which works well. Patient's last HgA1C was Hemoglobin A1C (%) Date Value 09/02/2021 8.4 02/25/2021 7.2 06/14/2019 8.0 ) Last Ophthalmology exam was within the past 12 months-Dr. Jimenez with several visits. Had laser surgery for intraocular pressure 2/2 glaucoma. Has follow up around June. Non compliant with eye drops. Last Podiatry exam was within the past 12 months Following [facility] as directed. albumin was low on his last check. Has not made change to his diet. BP well controlled without medication. Got his flu shot at dialysis. Plans to get COVID booster at dialysis. Past medical history, appointments, medications, allergies reviewed. Previous Medical History PAST MEDICAL HISTORY Diagnosis Date Chronic diastolic heart failure (HCC) Dr. Bacon 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) Thai Moreno, Sat Glaucoma Dr Jimenez LBBB (left bundle branch block) Dr. Bacon Lower extremity edema Mobitz (type) I (Wenckebach's) atrioventricular block Onychomycosis Osteoarthritis knees Other and unspecified hyperlipidemia Proliferative diabetic retinopathy of both eyes with macular edema associated with type 2 diabetes mellitus ([facility]) moderate, left macular edema-Dr. Jimenez Type II or unspecified type diabetes mellitus without mention of complication, not stated as uncontrolled Unspecified essential hypertension Previous Surgical History PAST SURGICAL HISTORY Procedure Laterality Date APPENDECTOMY PAST SURGICAL HISTORY OF Left 11/27/2020 upper extremity fistulogram with left radial artery angioplasty and left cephalic vein to radial artery anastomotic 08/22 powerflex angioplasty RPR 1ST INGUN HRNA AGE 7 YRS/> REDUCIBLE left Hernia repair, inguinal Family History FAMILY HISTORY Problem Relation Age of Onset Hypertension Mother Diabetes Father Patient Allergies ALLERGIES Allergen Reactions Actos [Pioglitazone* Other: See Comments fatigue Atenolol GI Upset 100 mg causes nausea Januvia [Sitaglipti* Other: See Comments Januvia 100mg dizziness, can tolerate 50mg Zocor [Simvastatin] myalgias Current Medications Current Outpatient Medications on File Prior to Visit Medication Sig mecobalamin (B12 ACTIVE ORAL) Take 1 tablet by mouth once daily. insulin glargine (LANTUS SOLOSTAR U-100 INSULIN) 100 unit/mL (3 mL) Inject 18 Units subcutaneously once daily. (Patient taking differently: Inject 20 Units subcutaneously once daily.) glipiZIDE (GLUCOTROL) 10 mg tablet Take 1 tablet by mouth twice daily before meals. blood sugar diagnostic (ACCU-CHEK LISA PLUS TEST STRP) test strip Test blood sugar(s) 2x daily. DxE11.65. Insulin: No. Insulin Perryman, Disposable, (BD ULTRA-FINE SHAHEEN PEN NEEDLE) 32 gauge x 5/32" Use one needle for each dose. 1x/day. lancets (FREESTYLE LANCETS) 28 gauge 1 Each once daily. blood sugar diagnostic (BLOOD GLUCOSE TEST) test strip Test blood sugar(s) 2x daily. Dx: E11.65. Insulin: No COMPOUNDED PRESCRIPTION True Metrix Test Strips. Test blood sugar(s) 2x daily. Dx: E11.65. Insulin:No COMPOUNDED PRESCRIPTION True Metrix Lancets. Test blood sugar(s) 2x daily. Dx: E11.65. Insulin: No cholecalciferol (VITAMIN D3) 5,000 unit tab Take 5,000 Units by mouth once daily. Blood-Glucose Meter [facility] Dispense 1 kit. Dx: E11.65 Aspirin 81 mg tab Take 1 tablet by mouth once daily. Take with food. COMPOUNDED PRESCRIPTION Crill Oil, Take 1 tablet daily. COMPOUNDED PRESCRIPTION robin msm take two in morning No current facility-administered medications on file prior to visit. Social History Social History Tobacco Use Smoking status: Former Types: Cigars Smokeless tobacco: Never Substance Use Topics Alcohol use: Yes Alcohol/week: 1.7 standard drinks Comment: rarely Drug use: No Review of Symptoms REVIEW OF SYSTEMS GENERAL: No weight loss, malaise or fevers RESPIRATORY: Negative for cough, hemoptysis, wheezing, COPD, dyspnea or shortness of breath CARDIOVASCULAR: Negative for chest pain, leg swelling, hypertension, CHF or palpitations GI: No nausea, vomiting, or diarrhea SKIN: Negative for lesions, rash, and itching EXAM: BP 136/60 Pulse (!) 58 Resp 16 Wt 98.2 kg (216 lb 6.4 oz) BMI 33.89 kg/m General Appearance: Well appearing, alert, in no acute distress, well-hydrated, well nourished.. Skin: Skin color, texture, turgor normal, no suspicious rashes or lesions. Lungs: Lungs clear to auscultation. No wheezing, rhonchi, rales.. Heart: RRR without murmur, gallop, or rubs. No ectopy. Abdomen: Normal abdominal exam, Abdomen soft, non-tender. Bowel sounds normal. No masses, organomegaly. Extremities: No deformities, edema, skin discoloration, clubbing or cyanosis. Good capillary refill. . Health Maintenance List SHINGRIX VACCINE(1 of 2) Never done COVID-19 VACCINE(3 - Booster for Len series) due on 05/21/2021 ADVANCE DIRECTIVE DISCUSSION Never done DEPRESSION ASSESSMENT Never done HBA1C due on 12/02/2021 DILATED RETINAL EXAM due on 12/05/2021 INFLUENZA(1) due on 01/21/2022 LDL CHOLESTEROL due on 02/25/2022 DIABETIC FOOT EXAM due on 09/02/2022 DTAP,TDAP,TD(3 - Td or Tdap) due on 04/26/2028 PNEUMOCOCCAL: 65+ Completed Data reviewed Component Latest Ref Rng & Units 09/02/2021 Protein, Total 6.3 - 8.0 g/dL 7.3 Albumin 3.9 - 4.9 g/dL 3.9 Calcium 8.5 - 10.2 mg/dL 9.3 Bilirubin, Total 0.2 - 1.3 mg/dL 0.2 Alkaline Phosphatase 38 - 113 U/L 63 AST 14 - 40 U/L 15 ALT 10 - 54 U/L 11 Glucose 74 - 99 mg/dL 236 (H) BUN 9 - 24 mg/dL 54 (H) Creatinine 0.73 - 1.22 mg/dL 4.70 (H) Sodium 136 - 144 mmol/L 138 Potassium 3.7 - 5.1 mmol/L 5.0 Chloride 97 - 105 mmol/L 95 (L) CO2 22 - 30 mmol/L 29 Anion Gap 9 - 18 mmol/L 14 eGFR >=60 mL/min/1.73m 12 (L) WBC 3.70 - 11.00 k/uL 8.66 RBC 4.20 - 6.00 m/uL 3.89 (L) Hemoglobin 13.0 - 17.0 g/dL 11.7 (L) Hematocrit 39.0 - 51.0 % 37.3 (L) MCV 80.0 - 100.0 fL 95.9 MCH 26.0 - 34.0 pg 30.1 MCHC 30.5 - 36.0 g/dL 31.4 RDW-CV 11.5 - 15.0 % 12.6 Platelet Count 150 - 400 k/uL 186 MPV 9.0 - 12.7 fL 12.1 Absolute nRBC <0.01 k/uL <0.01 Hemoglobin A1C 4.3 - 5.6 % 8.4 (H) Estimated Average Glucose mg/dL 194 ASSESSMENT/PLAN: 1. 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 edema, without long-term current use of insulin ([facility]) - ICD9: 250.50, 362.04, 362.07, ICD10: E11.3213 (primary diagnosis) Patient has not been compliant with medications and continues to get fasting hypoglycemia despite reducing his long acting insulin. Discussed we may need to start him on meal time insulin if his A1C continues to be high and have him check sugars 4 times per day. Reduce his Lantus to 18 units QHS. Obtain labs and will call with results. - COMP METABOLIC PANEL - HGB A1C - ALBUMIN/CREAT RATIO RND UR - LIPID PANEL, NONFASTING 2. Essential hypertension - ICD9: 401.9, ICD10: I10 - good control - Continue current medication(s) - Encouraged dietary sodium restriction/DASH diet - Recommended regular aerobic exercise. - Reviewed risks of HTN and principles of treatment - Goal of BP <140/90 3. Mixed hyperlipidemia - ICD9: 272.2, ICD10: E78.2 - to be determined upon return of lab results - Continue current medication. - Encouraged following a low fat, low cholesterol diet. - Discussed the benefits of regular aerobic exercise and weight loss. 4. 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 F/u nephrology recommendations. 5. Need for COVID-19 vaccine - ICD9: V04.89, ICD10: Z23 - [employer] COVID-19 BIVALENT BOOSTER VACCINE, AGE 12+ YR Husam Yan MD documented in this encounterHighland [facility] Hospital09-19-2022 Miscellaneous Notes* Telephone Encounter - Deborah Bedoya LPN - 02/08/2022 9:58 AM EDT Daughter Norah notified. Voices understanding. Deborah Bedoya LPN * Telephone Encounter - Lauren Arzola APRN.CNP - 02/08/2022 9:30 AM EDT He may take the tresiba as ordered- it is a long acting insulin. I will sent another prescription as requested by [facility]. Lauren Arzola APRN.LUZ * Telephone Encounter - Valerie Burris LPN - 02/08/2022 8:35 AM EDT Bernarda [facility] called and they do cover Lantus and to send new rx to them today so they can fill for pt. Per Bernarda Pt was given a Generic from [facility]. Spoke with [facility] Pharmacist and Tresiba was given to the pt. Please advise daughter Norah on what to do till medication Lantus is received. The pharmacist states if pt wants to bring back they will take it back. Patient has been identified by name and date of : Yes Pharmacy phones for refill(s): Requested Prescriptions Pending Prescriptions Disp Refills insulin glargine (LANTUS SOLOSTAR U-100 INSULIN) 100 unit/mL (3 mL) 5 Each 0 Sig: Inject 18 Units subcutaneously once daily. Date of last office visit in primary care: 09/02/21 next apt 03/05/22. Last 2 Encounter Wt Readings: Date: Wt: 09/02/2021 97.1 kg (214 lb) 03/04/2021 96.6 kg (213 lb) Previous labs/tests for medication: Diabetes: Hemoglobin A1C (%) Date Value 09/02/2021 8.4 02/25/2021 7.2 06/14/2019 8.0 Please advise. Thank you. Valerie Burrsi LPN * Telephone Encounter - Lauren Arzola APRN.CNP - 02/08/2022 8:21 AM EDT Please call and ask them what long acting insulin do they cover for this patient. Hehas been on Lantus. Have they changed what they cover? Please let daughter know [facility]. What insulin did they receive from [facility]. Thanks, Lauren Arzola APRN.LUZ * Telephone Encounter - Concepcion Hughes - 02/08/2022 8:09 AM EDT Daughter Norah is calling and she stated she needs to know what is going on because this was supposed to arrive from [facility]. Then a prescription went to [facility] and they filled something but it was not Lantus; patient is afraid to take the insulin because he does not know what it is. Patient is out of medication. Please call Norah, ; she needs to know what is going on. * Telephone Encounter - Catalina Ruth RN - 02/03/2022 9:06 AM EDT Madhuri with [facility] called in and is going to fax over PA information on the Glargine U100 to fax # [phone]. She is asking to have it faxed back to them. documented in this encounterHighland [facility] Hospital09-13-2022 Miscellaneous Notes* Telephone Encounter - Alanna Veloz LPN - 02/02/2022 1:53 PM EDT ZITA 09/02/21 NOV 03/05/22 * Telephone Encounter - Marina Dee [facility] - 02/02/2022 12:36 PM EDT Patient has been identified by name and date of : Yes Requested Prescriptions Pending Prescriptions Disp Refills insulin glargine (LANTUS SOLOSTAR U-100 INSULIN) 100 unit/mL (3 mL) 5 Each 0 Sig: Inject 18 Units subcutaneously once daily. RX INSTRUCTIONS: NOTE; PATIENT HAS NOT RECEIVED THE MAIL ORDER RX REQUESTED ON 01/26/2022 FOR HIS [facility],PLEASE FILL THIS SOON POSSIBLE Patient aware RX will be sent to pharmacy. No need to notify patient. Marina [facility] documented in this encounterHighland District Hospital09-06-2022 Miscellaneous Notes* Telephone Encounter - Harper Hughes - 01/26/2022 12:47 PM EDT Pharmacy verified in Epic Patient has been identified by name and date of : Yes Patient aware RX will be sent to pharmacy. No need to notify patient. Daughter phones for refill(s): Requested Prescriptions Pending Prescriptions Disp Refills insulin glargine (LANTUS SOLOSTAR U-100 INSULIN) 100 unit/mL (3 mL) 5 Each 2 Sig: Inject 18 Units subcutaneously once daily. Date of last office visit : 09/02/2021 Date of next office visit : 03/05/2022 Last 2 Encounter Wt Readings: Date: Wt: 09/02/2021 97.1 kg (214 lb) 03/04/2021 96.6 kg (213 lb) Please advise. Harper García Pss documented in this encounterHighland District Hospital07-25-2022 Miscellaneous Notes* Telephone Encounter - Amirah Bee MA - 12/14/2021 4:36 PM EDT Patient has been identified by name and date of : Yes Pending Prescriptions Disp Refills GLIPIZIDE 10 MG TABLET 180 tablet 3 Sig: Take 1 tablet by mouth twice daily before meals. RENETTA: No RX INSTRUCTIONS: Patient aware RX will be sent to pharmacy. No need to notify patient. Amirah Bee MA Zita: 08/2021 Nov: 02/2022 Last refill: 02/2021 documented in this encounterHighland District Hospital05-06-2022 Miscellaneous Notes* Telephone Encounter - Husam Yan MD - 09/25/2021 12:56 PM EDT Reviewed. * Telephone Encounter - Breanne Carvalho RN - 09/25/2021 12:42 PM EDT Daughter, Norah, returned call from pcp office. Reports patient received call also, but he won't return calls. Given provider's message below with verbalized understanding. Reports she will try to get patient to see hand grinder, but doesn't think he will. Reports patient has been on dialysis 3 days/week since getting out of hospital in Apr 2020, for kidney failure. She will ask patient to check his BS's before meals, and report readings in one week. Reports he normally checks his BS's once/day. * Telephone Encounter - Alanna Veloz LPN - 09/24/2021 9:33 AM EDT Phoned patient and message left for patient to return call and speak to a nurse for lab results andPCP's recommendations/orders. * Telephone Encounter - Deborah Bedoya LPN - 09/22/2021 5:16 PM EDT Patient and daughter both called. Messages left to call back for update. Deborah Bedoya LPN * Telephone Encounter - Deborah Bedoya LPN - 09/16/2021 12:49 PM EDT ----- Message from Husam Yan MD sent at 09/15/2021 5:35 PM EDT ----- Mild anemia with end stage kidney disease. Recommend follow up with nephrology for dialysis and anemia. Diabetes poorly controlled with A1C up from 7.2 to 8.4. We decreased his Lantus due to low sugars <70 in the morning. He may need meal time insulin. Please have the patient start checking his sugars before each meal and call in 1 week with his readings. documented in this encounterHighland District Hospital10-13-2021 History of Present illness Narrative* Suzanne Vigil RT(R) - 03/04/2021 9:30 AM EDT Radiology Service Progress Note PATIENT NAME: Perla Thompson DATE OF SERVICE: March 04, 2021 TIME: 9:34 AM PATIENT IDENTITY VERIFICATION COMPLETED USING TWO (2) IDENTIFIERS: Name and Date of confirmedby patient verbally. FALL SCREENING: Has the patient had 2 falls in the last year or 1 fall with injury or currently using an Ambulatory Assistive Device (Walker, Cane, Wheelchair, Crutches, etc.)? Yes, Patient High Riskfor Falls What interventions were put in place to prevent falls during this visit? 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 12/19/2015 04/26/2016 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 02/28/2020 Noncompliance with diet and medication regimen 1 06/17/2012 11/18/2016 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 04/07/2013 11/18/2016 Leg edema 07/14/2009 02/28/2020 documented as of this encounter (statuses as of 10/07/2021) [facility] of Past illness Narrative* Problem Noted Date Resolved Date 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 12/19/2015 04/26/2016 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 02/28/2020 Noncompliance with diet and medication regimen 1 06/17/2012 11/18/2016 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 04/07/2013 11/18/2016 Leg edema 07/14/2009 02/28/2020 documented as of this encounter (statuses as of 12/14/2021) [facility] of Past illness Narrative* Problem Noted Date Resolved Date 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 12/19/2015 04/26/2016 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 02/28/2020 Noncompliance with diet and medication regimen 1 06/17/2012 11/18/2016 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 04/07/2013 11/18/2016 Leg edema 07/14/2009 02/28/2020 documented as of this encounter (statuses as of 02/02/2022) [facility] of Past illness Narrative* Problem Noted Date Resolved Date 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 12/19/2015 04/26/2016 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 02/28/2020 Noncompliance with diet and medication regimen 1 06/17/2012 11/18/2016 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 04/07/2013 11/18/2016 Leg edema 07/14/2009 02/28/2020 documented as of this encounter (statuses as of 02/08/2022) [facility] of Past illness Narrative* Problem Noted Date Resolved Date 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 12/19/2015 04/26/2016 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 02/28/2020 Noncompliance with diet and medication regimen 1 06/17/2012 11/18/2016 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 04/07/2013 11/18/2016 Leg edema 07/14/2009 02/28/2020 documented as of this encounter (statuses as of 02/19/2022) [facility] of Past illness Narrative* Problem Noted Date Resolved Date 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 12/19/2015 04/26/2016 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 02/28/2020 Noncompliance with diet and medication regimen 1 06/17/2012 11/18/2016 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 04/07/2013 11/18/2016 Leg edema 07/14/2009 02/28/2020 documented as of this encounter (statuses as of 03/10/2022) [facility] History of Past illness Narrative* Problem Noted Date Resolved Date 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 12/19/2015 04/26/2016 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 02/28/2020 Noncompliance with diet and medication regimen 1 06/17/2012 11/18/2016 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 04/07/2013 11/18/2016 Leg edema 07/14/2009 02/28/2020 documented as of this encounter (statuses as of 03/15/2022) [facility] History of Past illness Narrative* Problem Noted Date Resolved Date 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 12/19/2015 04/26/2016 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 02/28/2020 Noncompliance with diet and medication regimen 1 06/17/2012 11/18/2016 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 04/07/2013 11/18/2016 Leg edema 07/14/2009 02/28/2020 Chronic kidney disease (CKD), stage III (moderat e) 06/03/2022 documented as of this encounter (statuses as of 06/07/2022) [facility] History of Past illness Narrative* Problem Noted Date Resolved Date 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 12/19/2015 04/26/2016 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 02/28/2020 Noncompliance with diet and medication regimen 1 06/17/2012 11/18/2016 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 04/07/2013 11/18/2016 Leg edema 07/14/2009 02/28/2020 Chronic kidney disease (CKD), stage III (moderat e) 06/03/2022 documented as of this encounter (statuses as of 06/08/2022) [facility] History of Past illness Narrative* Problem Noted Date Resolved Date 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 12/19/2015 04/26/2016 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 02/28/2020 Noncompliance with diet and medication regimen 1 06/17/2012 11/18/2016 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 04/07/2013 11/18/2016 Leg edema 07/14/2009 02/28/2020 Chronic kidney disease (CKD), stage III (moderat e) 06/03/2022 documented as of this encounter (statuses as of 08/19/2022) [facility] History of Past illness Narrative* Problem Noted Date Resolved Date 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 12/19/2015 04/26/2016 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 02/28/2020 Noncompliance with diet and medication regimen 1 06/17/2012 11/18/2016 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 04/07/2013 11/18/2016 Leg edema 07/14/2009 02/28/2020 Chronic kidney disease (CKD), stage III (moderat e) 06/03/2022 documented as of this encounter (statuses as of 09/06/2022) [facility] History of Past illness Narrative* Problem Noted Date Resolved Date 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 12/19/2015 04/26/2016 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 02/28/2020 Noncompliance with diet and medication regimen 1 06/17/2012 11/18/2016 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 04/07/2013 11/18/2016 Leg edema 07/14/2009 02/28/2020 Chronic kidney disease (CKD), stage III (moderat e) 06/03/2022 documented as of this encounter (statuses as of 10/28/2022) [facility] History of Past illness Narrative* Problem Noted Date Resolved Date 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 12/19/2015 04/26/2016 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 02/28/2020 Noncompliance with diet and medication regimen 1 06/17/2012 11/18/2016 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 04/07/2013 11/18/2016 Leg edema 07/14/2009 02/28/2020 Chronic kidney disease (CKD), stage III (moderat e) 06/03/2022 documented as of this encounter (statuses as of 11/04/2022) [facility] History of Past illness Narrative* Problem Noted Date Resolved Date 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 12/19/2015 04/26/2016 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 02/28/2020 Noncompliance with diet and medication regimen 1 06/17/2012 11/18/2016 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 04/07/2013 11/18/2016 Leg edema 07/14/2009 02/28/2020 Chronic kidney disease (CKD), stage III (moderat e) 06/03/2022 documented as of this encounter (statuses as of 11/15/2022) [facility] History of Past illness Narrative* Problem Noted Date Diagnosed Date Resolved Date 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 12/19/2015 04/26/2016 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 02/28/2020 Noncompliance with diet and medication regimen 04/17/2013 11/18/2016 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 04/07/2013 11/18/2016 Leg edema 07/14/2009 02/28/2020 Chronic kidney disease (CKD) , stage III (moderate) 06/03/2022 documented as of this encounter (statuses as of 12/06/2022) [facility] History of Past illness Narrative* Problem Noted Date Diagnosed Date Resolved Date 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 12/19/2015 04/26/2016 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 02/28/2020 Noncompliance with diet and medication regimen 04/17/2013 11/18/2016 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 04/07/2013 11/18/2016 Leg edema 07/14/2009 02/28/2020 Chronic kidney disease (CKD) , stage III (moderate) 06/03/2022 documented as of this encounter (statuses as of 02/26/2023) [facility] History of Past illness Narrative* Problem Noted Date Diagnosed Date Resolved Date 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 12/19/2015 04/26/2016 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 02/28/2020 Noncompliance with diet and medication regimen 04/17/2013 11/18/2016 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 04/07/2013 11/18/2016 Leg edema 07/14/2009 02/28/2020 Chronic kidney disease (CKD) , stage III (moderate) 06/03/2022 documented as of this encounter (statuses as of 03/08/2023) [facility] History of Past illness Narrative* Problem Noted Date Diagnosed Date Resolved Date 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 12/19/2015 04/26/2016 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 02/28/2020 Noncompliance with diet and medication regimen 04/17/2013 11/18/2016 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 04/07/2013 11/18/2016 Leg edema 07/14/2009 02/28/2020 Chronic kidney disease (CKD) , stage III (moderate) 06/03/2022 documented as of this encounter (statuses as of 03/15/2023) [facility] History of Past illness Narrative* Problem Noted Date Diagnosed Date Resolved Date 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 12/19/2015 04/26/2016 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 02/28/2020 Noncompliance with diet and medication regimen 04/17/2013 11/18/2016 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 04/07/2013 11/18/2016 Leg edema 07/14/2009 02/28/2020 Chronic kidney disease (CKD) , stage III (moderate) 06/03/2022 documented as of this encounter (statuses as of 06/27/2023) [facility] History of Past illness Narrative* Problem Noted Date Diagnosed Date Resolved Date 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 12/19/2015 04/26/2016 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 02/28/2020 Noncompliance with diet and medication regimen 04/17/2013 11/18/2016 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 04/07/2013 11/18/2016 Leg edema 07/14/2009 02/28/2020 Chronic kidney disease (CKD) , stage III (moderate) 06/03/2022 documented as of this encounter (statuses as of 07/11/2023) [facility] History of Past illness Narrative* Problem Noted Date Diagnosed Date Resolved Date 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 12/19/2015 04/26/2016 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 02/28/2020 Noncompliance with diet and medication regimen 04/17/2013 11/18/2016 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 04/07/2013 11/18/2016 Leg edema 07/14/2009 02/28/2020 Chronic kidney disease (CKD) , stage III (moderate) 06/03/2022 documented as of this encounter (statuses as of 07/13/2023) [facility] History of Past illness Narrative* Problem Noted Date Diagnosed Date Resolved Date 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 12/19/2015 04/26/2016 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 02/28/2020 Noncompliance with diet and medication regimen 04/17/2013 11/18/2016 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 04/07/2013 11/18/2016 Leg edema 07/14/2009 02/28/2020 Chronic kidney disease (CKD) , stage III (moderate) 06/03/2022 documented as of this encounter (statuses as of 07/28/2023) [facility] History of Past illness Narrative* Problem Noted Date Diagnosed Date Resolved Date 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 12/19/2015 04/26/2016 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 02/28/2020 Noncompliance with diet and medication regimen 04/17/2013 11/18/2016 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 04/07/2013 11/18/2016 Leg edema 07/14/2009 02/28/2020 Chronic kidney disease (CKD) , stage III (moderate) 06/03/2022 documented as of this encounter (statuses as of 08/08/2023) [facility] History of Past illness Narrative* Problem Noted Date Diagnosed Date Resolved Date 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 12/19/2015 04/26/2016 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 02/28/2020 Noncompliance with diet and medication regimen 04/17/2013 11/18/2016 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 04/07/2013 11/18/2016 Leg edema 07/14/2009 02/28/2020 Chronic kidney disease (CKD) , stage III (moderate) 06/03/2022 documented as of this encounter (statuses as of 09/07/2023) [facility] No data available for this section [facility] Evaluation note* Diagnosis Onset Date Resolution Status Problem with dialysis access acute Problem with dialysis access acute [facility] Work Phone: Evaluation note* Diagnosis 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 edema, without long-term current use of insulin ([facility]) documented in this encounter [facility] note* Diagnosis 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 edema, without long-term current use of insulin ([facility]) documented in this encounter [facility] note* Diagnosis 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 edema, without long-term current use of insulin ([facility]) documented in this encounter [facility] note* Diagnosis 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 edema, without long-term current use of insulin ([facility]) documented in this encounter [facility] note* Diagnosis 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 edema, without long-term current use of insulin ([facility])- Primary Essential hypertension Unspecified essential hypertension Mixed hyperlipidemia 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) End stage renal disease Need for COVID-19 vaccine documented in this encounter [facility] note* Diagnosis 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, without long-term current use of insulin ([facility])- Primary Essential hypertension Unspecified essential hypertension Mixed hyperlipidemia 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) End stage renal disease Chronic diastolic heart failure (HCC) Chronic diastolic heart failure Bradycardia Other specified cardiac dysrhythmias Lower extremity edema Edema Noncompliance of patient with dietary regimen Personal history of noncompliance with medical treatment, presenting hazards to health 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 edema, with long-term current use of insulin ([facility]) [facility] Diagnosis 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, without long-term current use of insulin ([facility]) documented [facility] this encounter [facility]* Diagnosis 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, without long-term current use of insulin ([facility]) documented [facility] this encounter [facility]* Diagnosis 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, without long-term current use of insulin ([facility])- Primary 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) End stage renal disease Chronic diastolic heart failure (HCC) Chronic diastolic heart failure [facility] Diagnosis 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 edema, without long-term current use of insulin ([facility]) [facility] Diagnosis 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, without long-term current use of insulin ([facility]) [facility] Diagnosis 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, without long-term current use of insulin ([facility])- Primary Lower extremity edema Edema 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) End stage renal disease Chronic diastolic heart failure (HCC) Chronic diastolic heart failure Essential hypertension Unspecified essential hypertension 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 At high risk for falls Personal history of fall documented in this encounter [facility]* Diagnosis 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, without long-term current use of insulin ([facility]) [facility] Diagnosis 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 edema, without long-term current use of insulin ([facility])- Primary Onychomycosis Dermatophytosis of nail Left foot pain Pain in limb Right foot pain Pain in limb [facility]* Diagnosis 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, without long-term current use of insulin ([facility]) [facility] Diagnosis 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, without long-term current use of insulin ([facility]) documented in this encounter [facility] note* Diagnosis 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 edema, with long-term current use of insulin ([facility]) documented in this encounter [facility] note* Diagnosis 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, without long-term current use of insulin ([facility]) documented in this encounter [facility] note* Diagnosis 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 edema, with long-term current use of insulin ([facility])- Primary ESRD (end stage renal disease) on dialysis ([facility]) End stage renal disease Chronic diastolic heart failure (HCC) Chronic diastolic heart failure 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 Lower extremity edema Edema Essential hypertension Unspecified essential hypertension Mixed hyperlipidemia [facility]* Diagnosis 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, without long-term current use of insulin ([facility]) [facility]* Diagnosis 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, acquired [facility] Diagnosis 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, without long-term current use of insulin ([facility])- Primary ESRD (end stage renal disease) on dialysis ([facility]) End stage renal disease [facility]* Diagnosis Right foot infection- Primary Unspecified local infection of skin and subcutaneous tissue [facility]* Diagnosis 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, without long-term current use of insulin ([facility]) documented in this encounter [facility] for referral (narrative)* Diagnostic Procedure Only (Routine) - Closed Specialty Diagnoses / Procedures Referred By Contac t Referred To Contact XR IMAGING Diagnoses Deformity of both feet Procedures XR FOOT GENERAL 3V AP/LAT/OBL BILAT X-RAY FOOT MINIMUM 3 VIEWS Husam Yan MD [address] [place] [address] [place] [address] Referral ID Status Reason Start Date Expiration Date V isits Requested Visits Authorized Closed Auto-Generate d Referral 03/04/2021 04/03/2022 1 1 [facility] for visit Narrative* Diagnostic Procedure Only (Routine) - Closed Specialty Diagnoses / Procedures Referred By Contac t Referred To Contact XR IMAGING Diagnoses Deformity of both feet Procedures XR FOOT GENERAL 3V AP/LAT/OBL BILAT X-RAY FOOT MINIMUM 3 VIEWS Husam Yan MD [address] [place] [address] [place] [address] Referral ID Status Reason Start Date Expiration Date V isits Requested Visits Authorized Closed Auto-Generate d Referral 03/04/2021 04/03/2022 1 1 [facility] Chief Complaint and Reason for Visit Chief Complaint L ARM DIALYSIS CATH LOW ADEQUECY LOW ACCESS FLOW DIALYSIS ACCESS COMPLICATION DIALYSIS ACCESS COMPLICATION Reason for Visit Problem with dialysi s access Problem with dialysis access Chief Complaint Admit Date [facility] June 06, 2024 5:00am 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 June 06, 2024 5:57am POST-OP EXAM June 06, 2024 2 :32pm LABWORK June 08, 2024 5 :00am [facility] June 11, 2024 5:00am LAB WORK June 18, 2024 4 :00am WOUND June 19, 2024 1 1:15am Post RLE Angiogram FU June 20, 2024 8:25am LAB WORK June 25, 2024 5 :00am LABWORK July 02, 2024 5:00am RENAL FAILURE, HYPERKALEMIA June 12:56pm ACUTE CARE EXAM July 02, 2024 1:07pm RENAL FAILURE, HYPERKALEMIA June 3:12pm WEAKNESS July 03, 2024 12:44pm DIZZINESS July 07, 2024 5:34pm LAB WORK July 09, 2024 5:00am NEW CONCERN July 10, 2024 5:48pm WOUND July 11, 2024 10:30am NEW CONCERN July 13, 2024 2:43pm CONCERN FOR R FOOT INFECTION July 132024 5:48pm CONCERN FOR R FOOT INFECTION July 142024 8:55am CONCERN FOR R FOOT INFECTION July 152024 1:02pm CONCERN FOR R FOOT INFECTION July 162024 9:47am CONCERN FOR R FOOT INFECTION July 172024 9:12am CONCERN FOR R FOOT INFECTION July 182024 8:20am CONCERN FOR R FOOT INFECTION July 192024 6:33pm CONCERN FOR R FOOT INFECTION July 202024 2:38pm LABWORK July 23, 2024 5:00 am WOUND July 23, 2024 1:12 pm LABWORK July 30, 2024 5:0 0am WOUND July 30, 2024 4:4 7pm NEW CONCERN July 31, 2024 1:0 0pm NEW CONCERN August 01, 2024 12: 18pm WOUND August 01, 2024 12: 45pm LABWORK August 06, 2024 5:0 0am WOUND August 06, 2024 10: 12am LABWORK August 13, 2024 5:0 0am WOUND August 13, 2024 9:0 2pm MONTHLY EXAM August 14, 2024 9:4 8pm LAB WORK August 20, 2024 5:0 0am WOUND August 20, 2024 10: 30am WOUND August 20, 2024 1:5 9pm [facility] WORK August 27, 2024 4: 00am WOUND August 27, 2024 8:23 am WOUND August 27, 2024 9:27 am LABWORK September 10, 2024 5:0 0am WOUND September 24, 2024 9:58am WOUND September 24, 2024 11:01a m Remove hola/Amp 08/29/2024 October 03, 2 025 8:55am Reason for Visit Admit Date Other acute osteomyelitis, right ankle a nd foot June 06, 2024 5:57am Other acute postprocedural pain June 06, 2024 5:57am Other specified peripheral vascular dise ases June 06, 2024 5:57am Other acute osteomyelitis, right ankle a nd foot June 19, 2024 11:15am Other specified peripheral vascular dise ases June 19, 2024 11:15am Diabetic ulcer of left foot May 8:25am PAD (peripheral artery disease) June 20, 2024 8:25am Status post transmetatarsal amputation o f right foot June 20, 2024 8:25am Diabetic ulcer of right foot May 8:25am End stage renal disease July 02 12:56pm Acute hyperkalemia July 02, 2024 12:56pm Other acute osteomyelitis, right ankle a nd foot July 11, 2024 10:30am Other specified peripheral vascular dise ases July 11, 2024 10:30am End stage renal disease July 13 5:48pm MRSA bacteremia July 13, 2024 5:48pm Cellulitis of right foot July 13, 2024 5:48pm Cellulitis of right lower limb July 13, 2024 5:48pm Diabetic infection of right foot uar y 2024 5:48pm Osteomyelitis of right foot June 5:48pm Pain in right foot July 13, 2024 5:48pm Chronic osteomyelitis of right foot [id number] 5:48pm Cutaneous abscess of right foot July 13, 2024 5:48pm Other specified peripheral vascular dise ases July 13, 2024 5:48pm PAD (peripheral artery disease) August 202024 10:30am Diabetic infection of right foot July 232024 10:30am Osteomyelitis of right foot August 20, 2024 10:30am Wound, open, foot August 20, 2024 10: 30am PAD (peripheral artery disease) August 8:23am Diabetic infection of right foot August 272024 8:23am Osteomyelitis of right foot August 27 025 8:23am Wound, open, foot August 27, 2024 8:23 am 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 August 29, 2024 1:06pm End stage renal disease August 29, 2024 1:06pm Anemia of chronic disease August 29 1:06pm 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 August 29, 2024 1:06pm Wound, open, foot August 29, 2024 1:06 pm 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 September 24, 2024 9:58am Chief Complaint Admit Date [facility] WORK June 06, 2024 5:00am 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 June 06, 2024 5:57am POST-OP EXAM June 06, 2024 2 :32pm LABWORK June 08, 2024 5 :00am [facility] WORK June 11, 2024 5:00am LAB WORK June 18, 2024 4 :00am WOUND June 19, 2024 1 1:15am Post RLE Angiogram FU June 20, 2024 8:25am LAB WORK June 25, 2024 5 :00am LABWORK July 02, 2024 5:00am RENAL FAILURE, HYPERKALEMIA June 12:56pm ACUTE CARE EXAM July 02, 2024 1:07pm RENAL FAILURE, HYPERKALEMIA June 3:12pm WEAKNESS July 03, 2024 12:44pm DIZZINESS July 07, 2024 5:34pm LAB WORK July 09, 2024 5:00am NEW CONCERN July 10, 2024 5:48pm WOUND July 11, 2024 10:30am NEW CONCERN July 13, 2024 2:43pm CONCERN FOR R FOOT INFECTION July 132024 5:48pm CONCERN FOR R FOOT INFECTION July 142024 8:55am CONCERN FOR R FOOT INFECTION July 152024 1:02pm CONCERN FOR R FOOT INFECTION July 162024 9:47am CONCERN FOR R FOOT INFECTION July 172024 9:12am CONCERN FOR R FOOT INFECTION July 182024 8:20am CONCERN FOR R FOOT INFECTION July 192024 6:33pm CONCERN FOR R FOOT INFECTION July 202024 2:38pm LABWORK July 23, 2024 5:00 am WOUND July 23, 2024 1:12 pm LABWORK July 30, 2024 5:0 0am WOUND July 30, 2024 4:4 7pm NEW CONCERN July 31, 2024 1:0 0pm NEW CONCERN August 01, 2024 12: 18pm WOUND August 01, 2024 12: 45pm LABWORK August 06, 2024 5:0 0am WOUND August 06, 2024 10: 12am LABWORK August 13, 2024 5:0 0am WOUND August 13, 2024 9:0 2pm MONTHLY EXAM August 14, 2024 9:4 8pm LAB WORK August 20, 2024 5:0 0am WOUND August 20, 2024 10: 30am WOUND August 20, 2024 1:5 9pm SHELTER LAB WORK August 27, 2024 4: 00am WOUND August 27, 2024 8:23 am WOUND August 27, 2024 9:27 am LABWORK September 10, 2024 5:0 0am LABWORK September 12, 2024 5:0 0am WOUND September 24, 2024 9:58am WOUND September 24, 2024 11:01a m Remove hola/Amp 08/29/2024 October 03, 025 8:55am Reason for Visit Admit Date Other acute osteomyelitis, right ankle a nd foot June 06, 2024 5:57am Other acute postprocedural pain June 06, 2024 5:57am Other specified peripheral vascular dise ases June 06, 2024 5:57am Other acute osteomyelitis, right ankle a nd foot June 19, 2024 11:15am Other specified peripheral vascular dise ases June 19, 2024 11:15am Diabetic ulcer of left foot May 8:25am PAD (peripheral artery disease) June 20, 2024 8:25am Status post transmetatarsal amputation o f right foot June 20, 2024 8:25am Diabetic ulcer of right foot May 8:25am End stage renal disease July 02 12:56pm Acute hyperkalemia July 02, 2024 12:56pm Other acute osteomyelitis, right ankle a nd foot July 11, 2024 10:30am Other specified peripheral vascular dise ases July 11, 2024 10:30am End stage renal disease July 13 025 5:48pm MRSA bacteremia July 13, 2024 5:48pm Cellulitis of right foot July 13, 2024 5:48pm Cellulitis of right lower limb July 13, 2024 5:48pm Diabetic infection of right foot uar 2024 5:48pm Osteomyelitis of right foot June 5:48pm Pain in right foot July 13, 2024 5:48pm Chronic osteomyelitis of right foot Febr uary 2024 5:48pm Cutaneous abscess of right foot July 13, 2024 5:48pm Other specified peripheral vascular dise ases July 13, 2024 5:48pm PAD (peripheral artery disease) August 202024 10:30am Diabetic infection of right foot July 232024 10:30am Osteomyelitis of right foot August 20, 2024 10:30am Wound, open, foot August 20, 2024 10: 30am PAD (peripheral artery disease) August 8:23am Diabetic infection of right foot August 272024 8:23am Osteomyelitis of right foot August 27 8:23am Wound, open, foot August 27, 2024 8:23 am 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 August 29, 2024 1:06pm End stage renal disease August 29, 2024 1:06pm Anemia of chronic disease August 29 1:06pm 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 August 29, 2024 1:06pm Wound, open, foot August 29, 2024 1:06 pm 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 September 24, 2024 9:58am 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 October 03, 2024 8:55am End stage renal disease October 03, 2024 8 :55am Chief Complaint Admit Date Post RLE Angiogram FU June 20, 2024 8:25am LAB WORK June 25, 2024 5 :00am LABWORK July 02, 2024 5:00am RENAL FAILURE, HYPERKALEMIA June 12:56pm ACUTE CARE EXAM July 02, 2024 1:07pm RENAL FAILURE, HYPERKALEMIA June 3:12pm WEAKNESS July 03, 2024 12:44pm DIZZINESS July 07, 2024 5:34pm LAB WORK July 09, 2024 5:00am NEW CONCERN July 10, 2024 5:48pm WOUND July 11, 2024 10:30am NEW CONCERN July 13, 2024 2:43pm CONCERN FOR R FOOT INFECTION July 132024 5:48pm CONCERN FOR R FOOT INFECTION July 142024 8:55am CONCERN FOR R FOOT INFECTION July 152024 1:02pm CONCERN FOR R FOOT INFECTION July 162024 9:47am CONCERN FOR R FOOT INFECTION July 172024 9:12am CONCERN FOR R FOOT INFECTION July 182024 8:20am CONCERN FOR R FOOT INFECTION July 192024 6:33pm CONCERN FOR R FOOT INFECTION July 202024 2:38pm LABWORK July 23, 2024 5:00 am WOUND July 23, 2024 1:12 pm LABWORK July 30, 2024 5:0 0am WOUND July 30, 2024 4:4 7pm NEW CONCERN July 31, 2024 1:0 0pm NEW CONCERN August 01, 2024 12: 18pm WOUND August 01, 2024 12: 45pm LABWORK August 06, 2024 5:0 0am WOUND August 06, 2024 10: 12am LABWORK August 13, 2024 5:0 0am WOUND August 13, 2024 9:0 2pm MONTHLY EXAM August 14, 2024 9:4 8pm LAB WORK August 20, 2024 5:0 0am WOUND August 20, 2024 10: 30am WOUND August 20, 2024 1:5 9pm SHELTER LAB WORK August 27, 2024 4: 00am WOUND August 27, 2024 8:23 am WOUND August 27, 2024 9:27 am RE-ADMISSION EXAM September 05, 2024 5:4 0pm LABWORK September 10, 2024 5:0 0am LABWORK September 12, 2024 5:0 0am LABWORK September 24, 2024 5:00am WOUND September 24, 2024 9:58am WOUND September 24, 2024 11:01a m Remove hola/Amp 08/29/2024 October 03, 2 025 8:55am 2 WK FU October 17, 2024 10:05 am Reason for Visit Admit Date Diabetic ulcer of left foot May 8:25am PAD (peripheral artery disease) June 20, 2024 8:25am Status post transmetatarsal amputation o f right foot June 20, 2024 8:25am Diabetic ulcer of right foot May 8:25am End stage renal disease July 02 2 025 12:56pm Acute hyperkalemia July 02, 2024 12:56pm Other acute osteomyelitis, right ankle a nd foot July 11, 2024 10:30am Other specified peripheral vascular dise ases July 11, 2024 10:30am End stage renal disease July 13, 2 025 5:48pm MRSA bacteremia July 13, 2024 5:48pm Cellulitis of right foot July 13, 2024 5:48pm Cellulitis of right lower limb July 13, 2024 5:48pm Diabetic infection of right foot uar y 2024 5:48pm Osteomyelitis of right foot June 5:48pm Pain in right foot July 13, 2024 5:48pm Chronic osteomyelitis of right foot Febr uary 2024 5:48pm Cutaneous abscess of right foot July 13, 2024 5:48pm Other specified peripheral vascular dise ases July 13, 2024 5:48pm PAD (peripheral artery disease) August 202024 10:30am Diabetic infection of right foot July 232024 10:30am Osteomyelitis of right foot August 20, 2024 10:30am Wound, open, foot August 20, 2024 10: 30am PAD (peripheral artery disease) August 8:23am Diabetic infection of right foot August 272024 8:23am Osteomyelitis of right foot August 27, 025 8:23am Wound, open, foot August 27, 2024 8:23 am 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 August 29, 2024 1:06pm End stage renal disease August 29, 2024 1:06pm Anemia of chronic disease August 29 1:06pm 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 August 29, 2024 1:06pm Wound, open, foot August 29, 2024 1:06 pm 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 September 24, 2024 9:58am 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 October 03, 2024 8:55am End stage renal disease October 03, 2024 8 :55am 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 October 17, 2024 10:05am AV fistula October 17, 2024 10:05 am Chief Complaint Admit Date LAB WORK June 25, 2024 5 :00am LABWORK July 02, 2024 5:00am RENAL FAILURE, HYPERKALEMIA June 12:56pm ACUTE CARE EXAM July 02, 2024 1:07pm RENAL FAILURE, HYPERKALEMIA June 3:12pm WEAKNESS July 03, 2024 12:44pm DIZZINESS July 07, 2024 5:34pm LAB WORK July 09, 2024 5:00am NEW CONCERN July 10, 2024 5:48pm WOUND July 11, 2024 10:30am NEW CONCERN July 13, 2024 2:43pm CONCERN FOR R FOOT INFECTION July 132024 5:48pm CONCERN FOR R FOOT INFECTION July 142024 8:55am CONCERN FOR R FOOT INFECTION July 152024 1:02pm CONCERN FOR R FOOT INFECTION July 162024 9:47am CONCERN FOR R FOOT INFECTION July 172024 9:12am CONCERN FOR R FOOT INFECTION July 182024 8:20am CONCERN FOR R FOOT INFECTION July 192024 6:33pm CONCERN FOR R FOOT INFECTION July 202024 2:38pm LABWORK July 23, 2024 5:00 am WOUND July 23, 2024 1:12 pm LABWORK July 30, 2024 5:0 0am WOUND July 30, 2024 4:4 7pm NEW CONCERN July 31, 2024 1:0 0pm NEW CONCERN August 01, 2024 12: 18pm WOUND August 01, 2024 12: 45pm LABWORK August 06, 2024 5:0 0am WOUND August 06, 2024 10: 12am LABWORK August 13, 2024 5:0 0am WOUND August 13, 2024 9:0 2pm MONTHLY EXAM August 14, 2024 9:4 8pm LAB WORK August 20, 2024 5:0 0am WOUND August 20, 2024 10: 30am WOUND August 20, 2024 1:5 9pm SHELTER LAB WORK August 27, 2024 4: 00am WOUND August 27, 2024 8:23 am WOUND August 27, 2024 9:27 am RE-ADMISSION EXAM September 05, 2024 5:4 0pm LABWORK September 10, 2024 5:0 0am LABWORK September 12, 2024 5:0 0am LABWORK September 24, 2024 5:00am WOUND September 24, 2024 9:58am WOUND September 24, 2024 11:01a m LABWORK October 02, 2024 5:00a m Remove hola/Amp 08/29/2024 October 03, 2 025 8:55am 2 WK FU October 17, 2024 10:05 am Reason for Visit Admit Date End stage renal disease July 02 12:56pm Acute hyperkalemia July 02, 2024 12:56pm Other acute osteomyelitis, right ankle a nd foot July 11, 2024 10:30am Other specified peripheral vascular dise ases July 11, 2024 10:30am End stage renal disease July 13 025 5:48pm MRSA bacteremia July 13, 2024 5:48pm Cellulitis of right foot July 13, 2024 5:48pm Cellulitis of right lower limb July 13, 2024 5:48pm Diabetic infection of right foot uar y 2024 5:48pm Osteomyelitis of right foot June 5:48pm Pain in right foot July 13, 2024 5:48pm Chronic osteomyelitis of right foot ua2024 5:48pm Cutaneous abscess of right foot July 13, 2024 5:48pm Other specified peripheral vascular dise ases July 13, 2024 5:48pm PAD (peripheral artery disease) August 202024 10:30am Diabetic infection of right foot July 232024 10:30am Osteomyelitis of right foot August 20, 2024 10:30am Wound, open, foot August 20, 2024 10: 30am PAD (peripheral artery disease) August 8:23am Diabetic infection of right foot August 272024 8:23am Osteomyelitis of right foot August 27 8:23am Wound, open, foot August 27, 2024 8:23 am 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 August 29, 2024 1:06pm End stage renal disease August 29, 2024 1:06pm Anemia of chronic disease August 29 1:06pm 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 August 29, 2024 1:06pm Wound, open, foot August 29, 2024 1:06 pm 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 September 24, 2024 9:58am 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 October 03, 2024 8:55am End stage renal disease October 03, 2024 8 :55am 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 October 17, 2024 10:05am AV fistula October 17, 2024 10:05 am Family History No Family History Records Found Relationship Condition Age at Onset Recorded Date/T laila mother Hypertension Unknown father Diabetes mellitus Unknown Chronic obstructive pulmonary disease Unk nown Advance Directives No Advanced Directives Records Found Advance Directive Response Recorded Date/ Time Advance Directives on File No November 06, 2021 9:22am Name of Medical Power of Developer Programmer Arian Thompson November 06, 2021 9:22am Advance Directives Yes November 06 9:22am Living Will Yes November 06, 2021 9:22am Power of Developer Programmer Yes November 06 9:22am Documents on File Type Date Recorded Patient Resistor Tester Expl anation Advance Directive(s) 07/03/2024 11:50 AM Advance Directive Response Recorded Date/ Time Living Will Yes July 02 025 2:52pm Do you have a Healthcare Pow er of Developer Programmer? Yes July 02, 2024 2:52pm Name of Medical Power of Developer Programmer NORAH GATES July 02, 2024 2:52pm Living Will Yes July 03 025 3:50pm Do you have a Healthcare Pow er of Developer Programmer? Yes July 03, 2024 3:50pm Name of Medical Power of Developer Programmer jacinda gates July 03, 2024 3:50pm Living Will Yes July 07 025 7:28pm Do you have a Healthcare Pow er of Developer Programmer? Yes July 07, 2024 7:28pm Name of Medical Power of Developer Programmer maurice gates- daughter July 07, 2024 7:28pm Living Will Yes July 13 025 7:33pm Do you have a Healthcare Pow er of Developer Programmer? Yes July 13, 2024 7:33pm Name of Medical Power of Developer Programmer Jacinda Jeremy avila July 13, 2024 7:33pm Living Will Yes August 28, 2024 8:57am Do you have a Healthcare Pow er of Developer Programmer? Yes August 28, 2024 8:57am Name of Medical Power of Developer Programmer NORAH GATES August 28, 2024 8:57am Living Will No June 04 2:32pm Do you have a Healthcare Pow er of Developer Programmer? No June 04, 2024 2:32pm Living Will Yes August 01, 2024 1:12pm Do you have a Healthcare Pow er of Developer Programmer? Yes August 01, 2024 1:12pm Name of Medical Power of Developer Programmer Jacinda Gates - seble August 01, 2024 1:12pm Advance Directives Yes April 11:29am Advance Directive Response Recorded Date/ Time Living Will Yes July 02, 2 025 2:52pm Do you have a Healthcare Pow er of Developer Programmer? Yes July 02, 2024 2:52pm Name of Medical Power of Developer Programmer NORAH GATES July 02, 2024 2:52pm Living Will Yes July 03, 2 025 3:50pm Do you have a Healthcare Pow er of Developer Programmer? Yes July 03, 2024 3:50pm Name of Medical Power of Developer Programmer jacinda gates July 03, 2024 3:50pm Living Will Yes July 07, 2 025 7:28pm Do you have a Healthcare Pow er of Developer Programmer? Yes July 07, 2024 7:28pm Name of Medical Power of Developer Programmer maurice gates- daughter July 07, 2024 7:28pm Living Will Yes July 13, 025 7:33pm Do you have a Healthcare Pow er of Developer Programmer? Yes July 13, 2024 7:33pm Name of Medical Power of Developer Programmer Jacinda avila July 13, 2024 7:33pm Living Will Yes August 28, 2024 8:57am Do you have a Healthcare Pow er of Developer Programmer? Yes August 28, 2024 8:57am Name of Medical Power of Developer Programmer NORAH GATES August 28, 2024 8:57am Living Will Yes August 01, 2024 1:12pm Do you have a Healthcare Pow er of Developer Programmer? Yes August 01, 2024 1:12pm Name of Medical Power of Developer Programmer Jacinda pruett August 01, 2024 1:12pm Advance Directives Yes April 11:29am Reason for Referral Specialty Diagnoses / Procedures Referred By Tay aguilar Referred To Contact Diagnoses 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 edema, without long-term current use of insulin (HCC) Podlogar, Lauren, SURGICAL ASSISTANT.MANAGER OUTREACH [address] [place] [address] Referral ID Status Reason Start Date Expiration Date V isits Requested Visits Authorized [id number] Pending Review 1 1 Referral ID Status Reason Start Date Expiration Date Visits Re quested Visits Authorized [id number] Closed 1 1 Specialty Diagnoses / Procedures Referred By Contac t Referred To Contact Diagnoses 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, without long-term current use of insulin (HCC) Podlogerick, Lauren, SURGICAL ASSISTANT.MANAGER OUTREACH [address] [place] [address] Referral ID Status Reason Start Date Expiration Date V isits Requested Visits Authorized [id number] Authorized 1 1 Summary Purpose Additional Source Comments Source Comments (unrecognize d section and content) In the event this informatio n is protected by the Federal Confidentiality of Alcohol and Drug Abuse Patient Records regulations: The Federal rules restrict any use of the information to criminally investigate or prosecute any alcohol or drug abuse patient.[facility] the event this information is protected by the Federal Confidentiality of Alcohol and Drug Abuse Patient Records regulations: The Federal rules restrict any use of the information to criminally investigate or prosecute any alcohol or drug abuse patient.[facility]In the event this information is protected by the Federal Confidentiality of Alcohol and Drug Abuse Patient Records regulations: The Federal rules restrict any use of the information to criminally investigate or prosecute any alcohol or drug abuse patient.[facility]In the event this information is protected by the Federal Confidentiality of Alcohol and Drug Abuse Patient Records regulations: The Federal rules restrict any use of the information to criminally investigate or prosecute any alcohol or drug abuse patient.[facility]In the event this information is protected by the Federal Confidentiality of Alcohol and Drug Abuse Patient Records regulations: The Federal rules restrict any use of the information to criminally investigate or prosecute any alcohol or drug abuse patient.[facility]In the event this information is protected by the Federal Confidentiality of Alcohol and Drug Abuse Patient Records regulations: The Federal rules restrict any use of the information to criminally investigate or prosecute any alcohol or drug abuse patient.[facility]In the event this information is protected by the Federal Confidentiality of Alcohol and Drug Abuse Patient Records regulations: The Federal rules restrict any use of the information to criminally investigate or prosecute any alcohol or drug abuse patient.[facility]In the event this information is protected by the Federal Confidentiality of Alcohol and Drug Abuse Patient Records regulations: The Federal rules restrict any use of the information to criminally investigate or prosecute any alcohol or drug abuse patient.[facility]In the event this information is protected by the Federal Confidentiality of Alcohol and Drug Abuse Patient Records regulations: The Federal rules restrict any use of the information to criminally investigate or prosecute any alcohol or drug abuse patient.[facility]In the event this information is protected by the Federal Confidentiality of Alcohol and Drug Abuse Patient Records regulations: The Federal rules restrict any use of the information to criminally investigate or prosecute any alcohol or drug abuse patient.[facility]In the event this information is protected by the Federal Confidentiality of Alcohol and Drug Abuse Patient Records regulations: The Federal rules restrict any use of the information to criminally investigate or prosecute any alcohol or drug abuse patient.[facility]In the event this information is protected by the Federal Confidentiality of Alcohol and Drug Abuse Patient Records regulations: The Federal rules restrict any use of the information to criminally investigate or prosecute any alcohol or drug abuse patient.[facility] HospitalIn the event this information is protected by the Federal Confidentiality of Alcohol and Drug Abuse Patient Records regulations: The Federal rules restrict any use of the information to criminally investigate or prosecute any alcohol or drug abuse patient.[facility]In the event this information is protected by the Federal Confidentiality of Alcohol and Drug Abuse Patient Records regulations: The Federal rules restrict any use of the information to criminally investigate or prosecute any alcohol or drug abuse patient.[facility]In the event this information is protected by the Federal Confidentiality of Alcohol and Drug Abuse Patient Records regulations: The Federal rules restrict any use of the information to criminally investigate or prosecute any alcohol or drug abuse patient.[facility] HospitalIn the event this information is protected by the Federal Confidentiality of Alcohol and Drug Abuse Patient Records regulations: The Federal rules restrict any use of the information to criminally investigate or prosecute any alcohol or drug abuse patient.[facility] HospitalIn the event this information is protected by the Federal Confidentiality of Alcohol and Drug Abuse Patient Records regulations: The Federal rules restrict any use of the information to criminally investigate or prosecute any alcohol or drug abuse patient.[facility] HospitalIn the event this information is protected by the Federal Confidentiality of Alcohol and Drug Abuse Patient Records regulations: The Federal rules restrict any use of the information to criminally investigate or prosecute any alcohol or drug abuse patient.[facility] HospitalIn the event this information is protected by the Federal Confidentiality of Alcohol and Drug Abuse Patient Records regulations: The Federal rules restrict any use of the information to criminally investigate or prosecute any alcohol or drug abuse patient.[facility] HospitalIn the event this information is protected by the Federal Confidentiality of Alcohol and Drug Abuse Patient Records regulations: The Federal rules restrict any use of the information to criminally investigate or prosecute any alcohol or drug abuse patient.[facility] HospitalIn the event this information is protected by the Federal Confidentiality of Alcohol and Drug Abuse Patient Records regulations: The Federal rules restrict any use of the information to criminally investigate or prosecute any alcohol or drug abuse patient.[facility] HospitalIn the event this information is protected by the Federal Confidentiality of Alcohol and Drug Abuse Patient Records regulations: The Federal rules restrict any use of the information to criminally investigate or prosecute any alcohol or drug abuse patient.[facility] HospitalIn the event this information is protected by the Federal Confidentiality of Alcohol and Drug Abuse Patient Records regulations: The Federal rules restrict any use of the information to criminally investigate or prosecute any alcohol or drug abuse patient.[facility] HospitalIn the event this information is protected by the Federal Confidentiality of Alcohol and Drug Abuse Patient Records regulations: The Federal rules restrict any use of the information to criminally investigate or prosecute any alcohol or drug abuse patient.[facility] HospitalIn the event this information is protected by the Federal Confidentiality of Alcohol and Drug Abuse Patient Records regulations: The Federal rules restrict any use of the information to criminally investigate or prosecute any alcohol or drug abuse patient.[facility] HospitalIn the event this information is protected by the Federal Confidentiality of Alcohol and Drug Abuse Patient Records regulations: The Federal rules restrict any use of the information to criminally investigate or prosecute any alcohol or drug abuse patient.[facility] HospitalIn the event this information is protected by the Federal Confidentiality of Alcohol and Drug Abuse Patient Records regulations: The Federal rules restrict any use of the information to criminally investigate or prosecute any alcohol or drug abuse patient.[facility] HospitalIn the event this information is protected by the Federal Confidentiality of Alcohol and Drug Abuse Patient Records regulations: The Federal rules restrict any use of the information to criminally investigate or prosecute any alcohol or drug abuse patient.[facility] HospitalIn the event this information is protected by the Federal Confidentiality of Alcohol and Drug Abuse Patient Records regulations: The Federal rules restrict any use of the information to criminally investigate or prosecute any alcohol or drug abuse patient.[facility] HospitalIn the event this information is protected by the Federal Confidentiality of Alcohol and Drug Abuse Patient Records regulations: The Federal rules restrict any use of the information to criminally investigate or prosecute any alcohol or drug abuse patient.[facility] HospitalIn the event this information is protected by the Federal Confidentiality of Alcohol and Drug Abuse Patient Records regulations: The Federal rules restrict any use of the information to criminally investigate or prosecute any alcohol or drug abuse patient.[facility] HospitalIn the event this information is protected by the Federal Confidentiality of Alcohol and Drug Abuse Patient Records regulations: The Federal rules restrict any use of the information to criminally investigate or prosecute any alcohol or drug abuse patient.[facility] the event this information is protected by the Federal Confidentiality of Alcohol and Drug Abuse Patient Records regulations: The Federal rules restrict any use of the information to criminally investigate or prosecute any alcohol or drug abuse patient.[facility] the event this information is protected by the Federal Confidentiality of Alcohol and Drug Abuse Patient Records regulations: The Federal rules restrict any use of the information to criminally investigate or prosecute any alcohol or drug abuse patient.[facility] the event this information is protected by the Federal Confidentiality of Alcohol and Drug Abuse Patient Records regulations: The Federal rules restrict any use of the information to criminally investigate or prosecute any alcohol or drug abuse patient.[facility] the event this information is protected by the Federal Confidentiality of Alcohol and Drug Abuse Patient Records regulations: The Federal rules restrict any use of the information to criminally investigate or prosecute any alcohol or drug abuse patient.[facility] the event this information is protected by the Federal Confidentiality of Alcohol and Drug Abuse Patient Records regulations: The Federal rules restrict any use of the information to criminally investigate or prosecute any alcohol or drug abuse patient.[facility] Reason for Visit (unrecogniz ed section and content) Reason Comments Results Reason Onset Date Comments Refill Request 12/14/2021 Reason Comments Refill Request Reason Comments Insurance Authorization Information on Mauricio bueno Reason Onset Date Comments Refill Request 01/26/2022 Reason Comments Follow Up 6 month Reason Comments Follow Up 3 month Reason Onset Date Comments Refill Request 08/19/2022 Reason Comments F/U 3 Month Reason Comments Refill Request Reason Onset Date Comments Refill Request 11/04/2022 Reason Onset Date Comments Refill Request 11/15/2022 Reason Comments Insurance Authorization Reason Comments Medication Problem Reason Comments [facility] Kidney diggs requesting recor ds Reason Comments Established Patient Follow Up Diabetic Foot Care Reason Onset Date Comments Refill Request 07/12/2023 Reason Onset Date Comments Refill Request 07/28/2023 Reason Comments Medication Problem Freestyle gelacio 14 d ay sensor kit - patient's sensor reader is a gelacio 2 and the sensors ordered by our office are incompatible with his reader Reason Comments Medication Request Reason Comments 4 month follow up Reason Onset Date Comments Refill Request 12/15/2023 See Rx notes Reason Comments Fluid retention and increased blood sugars, with sugars over 300sHas dialysis 3x week; sees nephrology monthly and saw him yesterday at dialysis, dr ordered him a diuretic but no call from pharmacy yet Reason Comments blood sugar average Reason Comments Pain (foot) right x 2 weeks, red and swelling Reason Comments blood sugar reading average Reason Onset Date Comments Population Health Navigation Outreach 04/23/2024 [employer]/Workbench/[place] Reason Comments Patient Update Fill out Surgical Release Forms Reason Onset Date Comments Population Health Navigation Outreach 06/11/2024 [employer] workbench [place] Reason Onset Date Comments Refill Request 07/09/2024 Reason Onset Date Comments Population Health Navigation Outreach 07/11/2024 [employer] workbedarlinh [place] Care Teams (unrecognized sec tion and content) Team Status: Active Member Role Status Dates Dr. Nando Wiggins MD Primary Care Provider Active Team Status: Active Member Role Status Dates Dr. Nando Wiggins MD Primary Care Provider Active Start: June 25, 2024 Nando SHERWOOD MD Attending Provider Active Start: June 25, 2024 Team Status: Active Member Role Status Dates Dr. Nando Wiggins MD Primary Care Provider Active Start: July 02, 2024 Nando SHERWOOD MD Attending Provider Active Start: July 02, 2024 Team Status: Inactive Member Role Status Dates Dr. Nando Wiggins MD Primary Care Provider Active Start: July 02, 2024 End: July 02, 2024 Dr. Modesta Cano MD Emergency Provider Active Start: July 02, 2024 End: July 02, 2024 Dr. Fernando Oliveros DO Admit Provider Active S tart: July 02, 2024 End: July 02, 2024 Dr. Fernando Oliveros DO Attending Provider Active Start: July 02, 2024 End: July 02, 2024 Dr. Manuel Alva MD Other Provider Active Start: July 02, 2024 End: July 02, 2024 Team Status: Inactive Member Role Status Dates Dr. Nando Wiggins MD Primary Care Provider Active Start: July 02, 2024 End: July 02, 2024 Meredith Guevara NP, [employer]-C Attending Provider Active Start: July 02, 2024 End: July 02, 2024 Team Status: Active Member Role Status Dates Dr. Nando Wiggins MD Primary Care Provider Active Start: July 02, 2024 Dr. Modesta Cano MD Emergency Provider Active Start: July 02, 2024 Dr. Fernando Oliveros DO Admit Provider Active S tart: July 02, 2024 Dr. Fernando Oliveros DO Attending Provider Active Start: July 02, 2024 Dr. Fernando Oliveros DO Other Provider Active S tart: July 02, 2024 Dr. Manuel Alva MD Other Provider Active Start: July 02, 2024 Team Status: Inactive Member Role Status Dates Dr. Nando Wiggins MD Primary Care Provider Active Start: July 03, 2024 End: July 03, 2024 Dr. Eric Franklin MD Attending Provider Active Sta rt: July 03, 2024 End: July 03, 2024 Dr. Eric Franklin MD Emergency Provider Active Sta rt: July 03, 2024 End: July 03, 2024 Team Status: Inactive Member Role Status Dates Dr. Nando Wiggins MD Primary Care Provider Active Start: July 07, 2024 End: July 07, 2024 Dr. Alicia Loo DO Attending Provider Active S tart: July 07, 2024 End: July 07, 2024 Dr. Alicia Loo DO Emergency Provider Active S tart: July 07, 2024 End: July 07, 2024 Team Status: Active Member Role Status Dates Dr. Nando Wiggins MD Primary Care Provider Active Start: July 09, 2024 Nando SHERWOOD MD Attending Provider Active Start: July 09, 2024 Team Status: Inactive Member Role Status Dates Dr. Nando Wiggins MD Primary Care Provider Active Start: July 10, 2024 End: July 10, 2024 Meredith Guevara SMELTER LINER, [employer]ER-C Attending Provider Active Start: July 10, 2024 End: July 10, 2024 Team Status: Inactive Member Role Status Dates Dr. Warren Mendoza DPM Referring Provider Active Start: July 11, 2024 End: July 20, 2024 Dr. Nando Wiggins MD Primary Care Provider Active Start: July 11, 2024 End: July 20, 2024 Dr. Randal Damico MD Attending Provider Active Start: July 11, 2024 End: July 20, 2024 Team Status: Inactive Member Role Status Dates Dr. Nando Wiggins MD Primary Care Provider Active Start: July 13, 2024 End: July 13, 2024 Meredith Guevara NP, [employer]-C Attending Provider Active Start: July 13, 2024 End: July 13, 2024 Team Status: Inactive Member Role Status Dates Dr. Nando Wiggins MD Primary Care Provider Active Start: July 13, 2024 End: July 20, 2024 Dr. Chung Humphreys MD Referring Provider Active Start: July 13, 2024 End: July 20, 2024 Dr. Chung Humphreys MD Emergency Provider Active Start: July 13, 2024 End: July 20, 2024 Dr. Jayla Osuna MD Admit Provider Active Star t: July 13, 2024 End: July 20, 2024 Dr. Jayla Osuna MD Other Provider Active Star t: July 13, 2024 End: July 20, 2024 Dr. Juan Antonio Holden MD Other Provider Active Sta rt: July 13, 2024 End: July 20, 2024 Dr. Randal Shore MD Other Provider Active Start: July 13, 2024 End: July 20, 2024 Dr. Manuel Alva MD Other Provider Active Start: July 13, 2024 End: July 20, 2024 Dr. Josef Garcia DPM Other Provider Active St art: July 13, 2024 End: July 20, 2024 Dr. Margarette Godinez DO Attending Provider Active S tart: July 13, 2024 End: July 20, 2024 Team Status: Active Member Role Status Dates Dr. Nando Wiggins MD Primary Care Provider Active Start: July 14, 2024 Dr. Chung Humphreys MD Emergency Provider Active Start: July 14, 2024 Dr. Jayla Osuna MD Admit Provider Active Star t: July 14, 2024 Dr. Jayla Osuna MD Other Provider Active Star t: July 14, 2024 Dr. Josef Garcia DPM Other Provider Active St art: July 14, 2024 Dr. Manuel Alva MD Other Provider Active Start: July 14, 2024 Dr. Juan Antonio Holden MD Attending Provider Active Start: July 14, 2024 Dr. Juan Antonio Holden MD Other Provider Active Sta rt: July 14, 2024 Dr. Randal Shore MD Other Provider Active Start: July 14, 2024 Team Status: Active Member Role Status Dates Dr. Nando Wiggins MD Primary Care Provider Active Start: July 15, 2024 Dr. Chung Humphreys MD Emergency Provider Active Start: July 15, 2024 Dr. Jayla Osuna MD Admit Provider Active Star t: July 15, 2024 Dr. Jayla Osuna MD Other Provider Active Star t: July 15, 2024 Dr. Josef Garcia DPM Other Provider Active St art: July 15, 2024 Dr. Manuel Alva MD Other Provider Active Start: July 15, 2024 Dr. Juan Antonio Holden MD Attending Provider Active Start: July 15, 2024 Dr. Juan Antonio Holden MD Other Provider Active Sta rt: July 15, 2024 Dr. Randal Shore MD Other Provider Active Start: July 15, 2024 Team Status: Active Member Role Status Dates Dr. Nando Wiggins MD Primary Care Provider Active Start: July 16, 2024 Dr. Chung Humphreys MD Emergency Provider Active Start: July 16, 2024 Dr. Jayla Osuna MD Admit Provider Active Star t: July 16, 2024 Dr. Jayla Osuna MD Attending Provider Active Start: July 16, 2024 Dr. Jayla Osuna MD Other Provider Active Star t: July 16, 2024 Dr. Josef Garcia DPM Other Provider Active St art: July 16, 2024 Dr. Manuel Alva MD Other Provider Active Start: July 16, 2024 Dr. Randal Shore MD Other Provider Active Start: July 16, 2024 Dr. Juan Antonio Holden MD Other Provider Active Sta rt: July 16, 2024 Team Status: Active Member Role Status Dates Dr. Nando Wiggins MD Primary Care Provider Active Start: July 16, 2024 Dr. Zenaida Cooper MD Attending Provider Activ e Start: July 16, 2024 Team Status: Active Member Role Status Dates Dr. Nando Wiggins MD Primary Care Provider Active Start: July 17, 2024 Dr. Chung Humphreys MD Emergency Provider Active Start: July 17, 2024 Dr. Jayla Osuna MD Admit Provider Active Star t: July 17, 2024 Dr. Jayla Osuna MD Attending Provider Active Start: July 17, 2024 Dr. Jayla Osuna MD Other Provider Active Star t: July 17, 2024 Dr. Juan Antonio Holden MD Other Provider Active Sta rt: July 17, 2024 Dr. Randal Shore MD Other Provider Active Start: July 17, 2024 Dr. Manuel Alva MD Other Provider Active Start: July 17, 2024 Dr. Josef Garcia DPM Other Provider Active St art: July 17, 2024 Team Status: Active Member Role Status Dates Dr. Nando Wiggins MD Primary Care Provider Active Start: July 18, 2024 Dr. Chung Humphreys MD Emergency Provider Active Start: July 18, 2024 Dr. Jayla Osuna MD Admit Provider Active Star t: July 18, 2024 Dr. Jayla Osuna MD Other Provider Active Star t: July 18, 2024 Dr. Juan Antonio Holden MD Other Provider Active Sta rt: July 18, 2024 Dr. Randal Shore MD Other Provider Active Start: July 18, 2024 Dr. Manuel Alva MD Other Provider Active Start: July 18, 2024 Dr. Josef Garcia DPM Other Provider Active St art: July 18, 2024 Dr. Margarette Godinez DO Attending Provider Active S tart: July 18, 2024 Dr. Margarette Godinez DO Other Provider Active Start : July 18, 2024 Team Status: Active Member Role Status Dates Dr. Nando Wiggins MD Primary Care Provider Active Start: July 18, 2024 Dr. Earl White MD Attending Provider Active S tart: July 18, 2024 Dr. Jayla Osuna MD Referring Provider Active Start: July 18, 2024 Team Status: Active Member Role Status Dates Dr. Nando Wiggins MD Primary Care Provider Active Start: July 19, 2024 Dr. Chung Humphreys MD Emergency Provider Active Start: July 19, 2024 Dr. Jayla Osuna MD Admit Provider Active Star t: July 19, 2024 Dr. Jayla Osuna MD Other Provider Active Star t: July 19, 2024 Dr. Juan Antonio Holden MD Other Provider Active Sta rt: July 19, 2024 Dr. Randal Shore MD Other Provider Active Start: July 19, 2024 Dr. Manuel Alva MD Other Provider Active Start: July 19, 2024 Dr. Josef Garcia DPM Other Provider Active St art: July 19, 2024 Dr. Margarette Godinez DO Attending Provider Active S tart: July 19, 2024 Dr. Margarette Godinez DO Other Provider Active Start : July 19, 2024 Team Status: Active Member Role Status Dates Dr. Nando Wiggins MD Primary Care Provider Active Start: July 20, 2024 Dr. Earl White MD Attending Provider Active S tart: July 20, 2024 Dr. Jayla Osuna MD Referring Provider Active Start: July 20, 2024 Team Status: Active Member Role Status Dates Dr. Nando Wiggins MD Primary Care Provider Active Start: July 20, 2024 Dr. Chung Humphreys MD Emergency Provider Active Start: July 20, 2024 Dr. Jayla Osuna MD Admit Provider Active Star t: July 20, 2024 Dr. Jayla Osuna MD Other Provider Active Star t: July 20, 2024 Dr. Juan Antonio Holden MD Other Provider Active Sta rt: July 20, 2024 Dr. Randal Shore MD Other Provider Active Start: July 20, 2024 Dr. Manuel Alva MD Other Provider Active Start: July 20, 2024 Dr. Josef Garcia DPM Other Provider Active St art: July 20, 2024 Dr. Margarette Godinez DO Attending Provider Active S tart: July 20, 2024 Dr. Margarette Godinez DO Other Provider Active Start : July 20, 2024 Team Status: Active Member Role Status Dates Dr. Nando Wiggins MD Primary Care Provider Active Start: July 23, 2024 Nando SHERWOOD MD Attending Provider Active Start: July 23, 2024 Team Status: Active Member Role Status Dates Dr. Warren Mendoza DPM Referring Provider Active Start: July 23, 2024 Dr. Nando Wiggins MD Primary Care Provider Active Start: July 23, 2024 Dr. Randal Damico MD Attending Provider Active Start: July 23, 2024 Dr. Randal Damico MD Other Provider Active Star t: July 23, 2024 Team Status: Active Member Role Status Dates Dr. Nando Wiggins MD Primary Care Provider Active Start: July 30, 2024 Nando SHERWOOD MD Attending Provider Active Start: July 30, 2024 Team Status: Active Member Role Status Dates Dr. Warren Mendoza DPM Referring Provider Active Start: July 30, 2024 Dr. Nando Wiggins MD Primary Care Provider Active Start: July 30, 2024 Dr. Randal Damico MD Attending Provider Active Start: July 30, 2024 Dr. Randal Damico MD Other Provider Active Star t: July 30, 2024 Team Status: Inactive Member Role Status Dates Dr. Nando Wiggins MD Primary Care Provider Active Start: July 31, 2024 End: July 31, 2024 Meredith Guevara SMELTER [employer]ER, [employer]ER-C Attending Provider Active Start: July 31, 2024 End: July 31, 2024 Team Status: Inactive Member Role Status Dates Dr. Nando Wiggins MD Primary Care Provider Active Start: August 01, 2024 End: August 01, 2024 Meredith Guevara SMEL[employer]ER, [employer]-C Attending Provider Active Start: August 01, 2024 End: August 01, 2024 Team Status: Inactive Member Role Status Dates Dr. Nando Wiggins MD Primary Care Provider Active Start: August 01, 2024 End: August 01, 2024 Dr. Des Garcia DO Attending Provider Active Start: August 01, 2024 End: August 01, 2024 Dr. Des Garcia DO Emergency Provider Active Start: August 01, 2024 End: August 01, 2024 Team Status: Active Member Role Status Dates Dr. Nando Wiggins MD Primary Care Provider Active Start: August 06, 2024 Nando SHERWOOD MD Attending Provider Active Start: August 06, 2024 Team Status: Active Member Role Status Dates Dr. Nando Wiggins MD Primary Care Provider Active Start: August 06, 2024 Dr. Randal Damico MD Attending Provider Active Start: August 06, 2024 Dr. Randal Damico MD Referring Provider Active Start: August 06, 2024 Dr. Randal Damico MD Other Provider Active Star t: August 06, 2024 Team Status: Inactive Member Role Status Dates Dr. Nando Wiggins MD Primary Care Provider Active Start: August 13, 2024 End: August 13, 2024 Nando SHERWOOD MD Attending Provider Active Start: August 13, 2024 End: August 13, 2024 Team Status: Active Member Role Status Dates Dr. Nando Wiggins MD Primary Care Provider Active Start: August 13, 2024 Dr. Randal Damico MD Attending Provider Active Start: August 13, 2024 Dr. Randal Damico MD Referring Provider Active Start: August 13, 2024 Dr. Randal Damico MD Other Provider Active Star t: August 13, 2024 Team Status: Inactive Member Role Status Dates Dr. Nando Wiggins MD Primary Care Provider Active Start: August 14, 2024 End: August 14, 2024 Dr. Nando Wiggins MD Attending Provider Active Start: August 14, 2024 End: August 14, 2024 Team Status: Active Member Role Status Dates Dr. Nando Wiggins MD Primary Care Provider Active Start: August 20, 2024 Nando SHERWOOD MD Attending Provider Active Start: August 20, 2024 Team Status: Inactive Member Role Status Dates Dr. Warren Mendoza DPM Referring Provider Active Start: August 20, 2024 End: August 20, 2024 Dr. Nando Wiggins MD Primary Care Provider Active Start: August 20, 2024 End: August 20, 2024 Dr. Randal Damico MD Attending Provider Active Start: August 20, 2024 End: August 20, 2024 Team Status: Active Member Role Status Dates Dr. Nando Wiggins MD Primary Care Provider Active Start: August 20, 2024 Dr. Randal Damico MD Attending Provider Active Start: August 20, 2024 Dr. Randal Damico MD Referring Provider Active Start: August 20, 2024 Dr. Randal Damico MD Other Provider Active Star t: August 20, 2024 Team Status: Inactive Member Role Status Dates Dr. Nando Wiggins MD Primary Care Provider Active Start: August 27, 2024 End: August 27, 2024 Nando SHERWOOD MD Attending Provider Active Start: August 27, 2024 End: August 27, 2024 Nando SHERWOOD MD Referring Provider Active Start: August 27, 2024 End: August 27, 2024 Team Status: Inactive Member Role Status Dates Dr. Warren Mendoza DPM Referring Provider Active Start: August 27, 2024 End: September 19, 2024 Dr. Nando Wiggins MD Primary Care Provider Active Start: August 27, 2024 End: September 19, 2024 Dr. Randal Damico MD Attending Provider Active Start: August 27, 2024 End: September 19, 2024 Team Status: Active Member Role Status Dates Dr. Warren Mendoza DPM Referring Provider Active Start: August 27, 2024 Dr. Nando Wiggins MD Primary Care Provider Active Start: August 27, 2024 Dr. Randal Damico MD Attending Provider Active Start: August 27, 2024 Dr. Randal Damico MD Other Provider Active Star t: August 27, 2024 Team Status: Active Member Role Status Dates Dr. Nando Wiggins MD Primary Care Provider Active Start: August 28, 2024 Nando SHERWOOD MD Attending Provider Active Start: August 28, 2024 Team Status: Active Member Role Status Dates Dr. Nando Wiggins MD Primary Care Provider Active Start: August 29, 2024 Dr. Earl White MD Admit Provider Active Start : August 29, 2024 Dr. Earl White MD Referring Provider Active S tart: August 29, 2024 Dr. Earl White MD Other Provider Active Start : August 29, 2024 Dr. Randal Damico MD Attending Provider Active Start: August 29, 2024 Dr. Randal Damico MD Other Provider Active Star t: August 29, 2024 Team Status: Active Member Role Status Dates Dr. Nando Wiggins MD Primary Care Provider Active Start: August 29, 2024 Dr. Earl White MD Admit Provider Active Start : August 29, 2024 Dr. Earl White MD Attending Provider Active S tart: August 29, 2024 Dr. Earl White MD Referring Provider Active S tart: August 29, 2024 Dr. Earl White MD Other Provider Active Start : August 29, 2024 Dr. Randal Damico MD Other Provider Active Star t: August 29, 2024 Team Status: Inactive Member Role Status Dates Dr. Nando Wiggins MD Primary Care Provider Active Start: August 29, 2024 End: September 04, 2024 Dr. Earl White MD Admit Provider Active Start : August 29, 2024 End: September 04, 2024 Dr. Earl White MD Attending Provider Active S tart: August 29, 2024 End: September 04, 2024 Dr. Earl White MD Referring Provider Active S tart: August 29, 2024 End: September 04, 2024 Dr. Randal Damico MD Other Provider Active Star t: August 29, 2024 End: September 04, 2024 Dr. Manuel Alva MD Other Provider Active Start: August 29, 2024 End: September 04, 2024 Team Status: Active Member Role Status Dates Dr. Nando Wiggins MD Primary Care Provider Active Start: August 30, 2024 Dr. Earl White MD Admit Provider Active Start : August 30, 2024 Dr. Earl White MD Referring Provider Active S tart: August 30, 2024 Dr. Earl White MD Other Provider Active Start : August 30, 2024 Dr. Randal Damico MD Attending Provider Active Start: August 30, 2024 Dr. Randal Damico MD Other Provider Active Star t: August 30, 2024 Dr. Manuel Alva MD Other Provider Active Start: August 30, 2024 Team Status: Active Member Role Status Dates Dr. Nando Wiggins MD Primary Care Provider Active Start: August 30, 2024 Dr. Earl White MD Admit Provider Active Start : August 30, 2024 Dr. Earl White MD Referring Provider Active S tart: August 30, 2024 Dr. Earl White MD Other Provider Active Start : August 30, 2024 Dr. Randal Damico MD Other Provider Active Star t: August 30, 2024 Dr. Manuel Alva MD Other Provider Active Start: August 30, 2024 KRISTOFER Hernández Attending Provider Active Star t: August 30, 2024 Team Status: Active Member Role Status Dates Dr. Nando Wiggins MD Primary Care Provider Active Start: August 31, 2024 Dr. Earl White MD Admit Provider Active Start : August 31, 2024 Dr. Earl White MD Referring Provider Active S tart: August 31, 2024 Dr. Earl White MD Other Provider Active Start : August 31, 2024 Dr. Randal Damico MD Other Provider Active Star t: August 31, 2024 Dr. Manuel Alva MD Other Provider Active Start: August 31, 2024 KRISTOFER Hernández Attending Provider Active Star t: August 31, 2024 Team Status: Active Member Role Status Dates Dr. Nando Wiggins MD Primary Care Provider Active Start: August 31, 2024 Dr. Earl White MD Attending Provider Active S tart: August 31, 2024 KRISTOFER Hernández Referring Provider Active Star t: August 31, 2024 Team Status: Active Member Role Status Dates Dr. Nando Wiggins MD Primary Care Provider Active Start: August 31, 2024 Dr. Earl White MD Admit Provider Active Start : August 31, 2024 Dr. Earl White MD Referring Provider Active S tart: August 31, 2024 Dr. Earl White MD Other Provider Active Start : August 31, 2024 Dr. Randal Damico MD Attending Provider Active Start: August 31, 2024 Dr. Randal Damico MD Other Provider Active Star t: August 31, 2024 Dr. Manuel Alva MD Other Provider Active Start: August 31, 2024 Team Status: Active Member Role Status Dates Dr. Nando Wiggins MD Primary Care Provider Active Start: September 01, 2024 Dr. Earl White MD Admit Provider Active Start : September 01, 2024 Dr. Earl White MD Referring Provider Active S tart: September 01, 2024 Dr. Earl White MD Other Provider Active Start : September 01, 2024 Dr. Randal Damico MD Other Provider Active Star t: September 01, 2024 Dr. Manuel Alva MD Other Provider Active Start: September 01, 2024 KRISTOFER Hernández Attending Provider Active Star t: September 01, 2024 Team Status: Active Member Role Status Dates Dr. Nando Wiggins MD Primary Care Provider Active Start: September 02, 2024 Dr. Earl White MD Admit Provider Active Start : September 02, 2024 Dr. Earl White MD Referring Provider Active S tart: September 02, 2024 Dr. Earl White MD Other Provider Active Start : September 02, 2024 Dr. Randal Damico MD Other Provider Active Star t: September 02, 2024 Dr. Manuel Alva MD Other Provider Active Start: September 02, 2024 KRISTOFER Hernández Attending Provider Active Star t: September 02, 2024 Team Status: Active Member Role Status Dates Dr. Nando Wiggins MD Primary Care Provider Active Start: September 03, 2024 Dr. Earl White MD Admit Provider Active Start : September 03, 2024 Dr. Earl White MD Referring Provider Active S tart: September 03, 2024 Dr. Earl White MD Other Provider Active Start : September 03, 2024 Dr. Randal Damico MD Attending Provider Active Start: September 03, 2024 Dr. Randal Damico MD Other Provider Active Star t: September 03, 2024 Dr. Manuel Alva MD Other Provider Active Start: September 03, 2024 Team Status: Active Member Role Status Dates Dr. Nando Wiggins MD Primary Care Provider Active Start: September 03, 2024 Dr. Earl White MD Admit Provider Active Start : September 03, 2024 Dr. Earl White MD Attending Provider Active S tart: September 03, 2024 Dr. Earl White MD Referring Provider Active S tart: September 03, 2024 Dr. Earl White MD Other Provider Active Start : September 03, 2024 Dr. Randal Damico MD Other Provider Active Star t: September 03, 2024 Dr. Manuel Alva MD Other Provider Active Start: September 03, 2024 Team Status: Active Member Role Status Dates Dr. Nando Wiggins MD Primary Care Provider Active Start: September 04, 2024 Dr. Earl White MD Admit Provider Active Start : September 04, 2024 Dr. Earl White MD Referring Provider Active S tart: September 04, 2024 Dr. Earl White MD Other Provider Active Start : September 04, 2024 Dr. Randal Damico MD Other Provider Active Star t: September 04, 2024 Dr. Manuel Alva MD Other Provider Active Start: September 04, 2024 KRISTOFER Hernández Attending Provider Active Star t: September 04, 2024 Team Status: Inactive Member Role Status Dates Dr. Nando Wiggins MD Primary Care Provider Active Start: September 05, 2024 End: September 05, 2024 Meredith Guevara NP, SMELTER LINER-C Attending Provider Active Start: September 05, 2024 End: September 05, 2024 Team Status: Active Member Role Status Dates Dr. Nando Wiggins MD Primary Care Provider Active Start: September 10, 2024 Nando SHERWOOD MD Attending Provider Active Start: September 10, 2024 Team Status: Inactive Member Role Status Dates Dr. Nando iWggins MD Primary Care Provider Active Start: September 12, 2024 End: September 12, 2024 Nando SHERWOOD MD Attending Provider Active Start: September 12, 2024 End: September 12, 2024 Team Status: Active Member Role Status Dates Dr. Nando Wiggins MD Primary Care Provider Active Start: September 17, 2024 Nando SHERWOOD MD Attending Provider Active Start: September 17, 2024 Team Status: Inactive Member Role Status Dates Dr. Nando Wiggins MD Primary Care Provider Active Start: September 24, 2024 End: September 24, 2024 Nando SHERWOOD MD Attending Provider Active Start: September 24, 2024 End: September 24, 2024 Team Status: Inactive Member Role Status Dates Dr. Warren Mendoza DPM Referring Provider Active Start: September 24, 2024 End: October 18, 2024 Dr. Nando Wiggins MD Primary Care Provider Active Start: September 24, 2024 End: October 18, 2024 Dr. Randal Damico MD Attending Provider Active Start: September 24, 2024 End: October 18, 2024 Team Status: Active Member Role Status Dates Dr. Warren Mendoza DPM Referring Provider Active Start: September 24, 2024 Dr. Nando Wiggins MD Primary Care Provider Active Start: September 24, 2024 Dr. Randal Damico MD Attending Provider Active Start: September 24, 2024 Dr. Randal Damico MD Other Provider Active Star t: September 24, 2024 Team Status: Inactive Member Role Status Dates Dr. Nando Wiggins MD Primary Care Provider Active Start: October 02, 2024 End: October 02, 2024 Nando SHERWOOD MD Attending Provider Active Start: October 02, 2024 End: October 02, 2024 Team Status: Inactive Member Role Status Dates Dr. Nando Wiggins MD Primary Care Provider Active Start: October 03, 2024 End: October 03, 2024 Dr. Nando Wiggins MD Referring Provider Active Start: October 03, 2024 End: October 03, 2024 KRISTOFER Hernández Attending Provider Active Star t: October 03, 2024 End: October 03, 2024 Team Status: Active Member Role Status Dates Dr. Nando Wiggins MD Primary Care Provider Active Start: October 08, 2024 Nando SHERWOOD MD Attending Provider Active Start: October 08, 2024 Team Status: Active Member Role Status Dates Dr. Nando Wiggins MD Primary Care Provider Active Start: October 16, 2024 Nando SHERWOOD MD Attending Provider Active Start: October 16, 2024 Team Status: Inactive Member Role Status Dates Dr. Nando Wiggins MD Primary Care Provider Active Start: October 17, 2024 End: October 17, 2024 Dr. Nando Wiggins MD Referring Provider Active Start: October 17, 2024 End: October 17, 2024 KRISTOFER Hernández Attending Provider Active Star t: October 17, 2024 End: October 17, 2024 Janitor Head Relationship Specialty Start Date End Date Husam Yan MD [address] [place], [place] [address] PCP - General Family Practice 10/14/16 Janitor Head Relationship Specialty Start Date End Date Husam Yan MD [address] [place], [place] [id number] PCP - General Family Practice 10/14/16 Janitor Head Relationship Specialty Start Date End Date Husam Yan MD [address] [place], [place] [address] PCP - General Family Practice 10/14/16 Janitor Head Relationship Specialty Start Date End Date Husam Yan MD [address] [place], [place] [address] PCP - General Family Practice 10/14/16 Janitor Head Relationship Specialty Start Date End Date Husam Yan MD [address] [place] [address] PCP - General Family Medicine 10/14/16 Janitor Head Relationship Specialty Start Date End Date Husam Yan MD [address] [place] [address] PCP - General Family Medicine 10/14/16 Janitor Head Relationship Specialty Start Date End Date Husam Yan MD [address] [place] [address] PCP - General Family Medicine 10/14/16 Janitor Head Relationship Specialty Start Date End Date Husam Yan MD [address] [place] [address] PCP - General Family Medicine 10/14/16 Janitor Head Relationship Specialty Start Date End Date Husam Yan MD [address] [place] [address] PCP - General Family Medicine 10/14/16 Janitor Head Relationship Specialty Start Date End Date Husam Yan MD [address] [place] [address] PCP - General Family Medicine 10/14/16 Janitor Head Relationship Specialty Start Date End Date Husam Yan MD [address] [place] [address] PCP - General Family Medicine 10/14/16 Janitor Head Relationship Specialty Start Date End Date Husam Yan MD [address] [place] [address] PCP - General Family Medicine 10/14/16 Janitor Head Relationship Specialty Start Date End Date Husam Yan MD [address] [place] [address] PCP - General Family Medicine 10/14/16 Janitor Head Relationship Specialty Start Date End Date Husam Yan MD [address] [place] [address] PCP - General Family Medicine 10/14/16 Janitor Head Relationship Specialty Start Date End Date Husam Yan MD [address] [place] [address] PCP - General Family Medicine 10/14/16 Janitor Head Relationship Specialty Start Date End Date Husam Yan MD [address] [place] [address] PCP - General Family Medicine 10/14/16 Janitor Head Relationship Specialty Start Date End Date Husam Yan MD [address] [place] [address] PCP - General Family Medicine 10/14/16 Janitor Head Relationship Specialty Start Date End Date Husam Yan MD [address] [place] [address] PCP - General Family Medicine 10/14/16 Janitor Head Relationship Specialty Start Date End Date Husam Yan MD [address] [place] [address] PCP - General Family Medicine 10/14/16 Janitor Head Relationship Specialty Start Date End Date Husam Yan MD [address] [place] [address] PCP - General Family Medicine 10/14/16 Janitor Head Relationship Specialty Start Date End Date Husam Yan MD [address] [place] [address] PCP - General Family Medicine 10/14/16 Janitor Head Relationship Specialty Start Date End Date Husam Yan MD [address] [place] [address] PCP - General Family Medicine 10/14/16 Janitor Head Relationship Specialty Start Date End Date Husam Yan MD [address] [place] [address] PCP - General Family Medicine 10/14/16 Janitor Head Relationship Specialty Start Date End Date Husam Yan MD [address] [place] [address] PCP - General Family Medicine 10/14/16 Janitor Head Relationship Specialty Start Date End Date Husam Yan MD [address] [place] [address] PCP - General Family Medicine 10/14/16 PodlogarLauren APRN.MANAGER OUTREACH [address] [place] [address] [employer] 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 Jean Yan MD Primary Care Provider Acti ve Start: June 06, 2024 End: June 06, 2024 Nando SHERWOOD MD Attending Provider Active Start: June 06, 2024 End: June 06, 2024 Team Status: Inactive Member Role Status Dates Dr. Jean Yan MD Primary Care Provider Acti ve Start: June 06, 2024 End: June 06, 2024 Dr. Des Ruelas DPM Attending Provider Active Start: June 06, 2024 End: June 06, 2024 Dr. Des Ruelas DPM Referring Provider Active Start: June 06, 2024 End: June 06, 2024 Team Status: Inactive Member Role Status Dates Dr. Nando Wiggins MD Primary Care Provider Active Start: June 06, 2024 End: June 06, 2024 Meredith Guevara SMELTER LINER, SMELTER LINER-C Attending Provider Active Start: June 06, 2024 End: June 06, 2024 Team Status: Active Member Role Status Dates Dr. Jean Yan MD Primary Care Provider Acti ve Start: June 08, 2024 Nando SHERWOOD MD Attending Provider Active Start: June 08, 2024 Team Status: Active Member Role Status Dates Dr. Jena Yan MD Primary Care Provider Acti ve Start: June 11, 2024 Nando SHERWOOD MD Attending Provider Active Start: June 11, 2024 Team Status: Active Member Role Status Dates Dr. Jean Yan MD Primary Care Provider Acti ve Start: June 18, 2024 Nando SHERWOOD MD Attending Provider Active Start: June 18, 2024 Nando SHERWOOD MD Referring Provider Active Start: June 18, 2024 Team Status: Inactive Member Role Status Dates Dr. Jean Yan MD Primary Care Provider Acti ve Start: June 19, 2024 End: June 22, 2024 Dr. Warren Mendoza DPM Referring Provider Active Start: June 19, 2024 End: June 22, 2024 Dr. Des Ruelas DPM Attending Provider Active Start: June 19, 2024 End: June 22, 2024 Team Status: Inactive Member Role Status Dates Dr. Jean Yan MD Referring Provider Active Start: June 20, 2024 End: June 20, 2024 KRISTOFER Hernández Attending Provider Active Star t: June 20, 2024 End: June 20, 2024 Dr. Nando Wiggins MD Primary Care Provider Active Start: June 20, 2024 End: June 20, 2024 Team Status: Active Member Role Status Dates Dr. Nando Wiggins MD Primary Care Provider Active Start: September 12, 2024 Nando SHERWOOD MD Attending Provider Active Start: September 12, 2024 Team Status: Active Member Role Status Dates Dr. Nando Wiggins MD Primary Care Provider Active Start: September 24, 2024 Nando SHERWOOD MD Attending Provider Active Start: September 24, 2024 Team Status: Active Member Role Status Dates Dr. Warren Mendoza DPM Referring Provider Active Start: September 24, 2024 Dr. Nando Wiggins MD Primary Care Provider Active Start: September 24, 2024 Dr. Randal Damico MD Attending Provider Active Start: September 24, 2024 Team Status: Active Member Role Status Dates Dr. Nando Wiggins MD Primary Care Provider Active Start: October 02, 2024 Nando SHERWOOD MD Attending Provider Active Start: October 02, 2024 Goals (unrecognized section and content) Goals may be documented in a n alternate section No data available for this section (unrecognized sect ion and content) No Status Records FoundNo Status Records FoundNo Status Records Found INFORMATION SOURCE (unrecogn ized section and content) DATE CREATED AUTHOR 09/16/2023 [facility] ([place]) DATE CREATED AUTHOR AUTHOR'S ORGANIZ ATION 07/13/2024 [facility] DATE CREATED AUTHOR AUTHOR'S ORGANIZ ATION 10/29/2024 [facility] FOR RECORDS PERTAINING TO PATIENTS WHO ARE OR HAVE BEEN ENROLLED IN A CHEMICAL DEPENDENCY/SUBSTANCEABUSE PROGRAM, SOME INFORMATION MAY BE OMITTED. This clinical summary was aggregated from multiple sources. Caution should be exercised in using it in the provision of clinical care. This summary normalizes information from multiple sources, and as a consequence, information in this document may materially change the coding, format and clinical context of patient data. In addition, data may be omitted in some cases. CLINICAL DECISIONS SHOULD BE BASED ON THE PRIMARY CLINICAL RECORDS. [employer] provides no warranty or guarantee of the accuracy or completeness of information in this document.
[2024-11-05 08:55] LABS: Absolute Lymphocyte Count 1.94 X10^3/uL (0.83-4.51); Absolute Neutrophil Count 4.4 X10^3/uL (2.0-7.7); Basophil# 0.05 X10^3/uL; Basophil% 0.7 % (0-1); Eosinophil# 0.29 X10^3/uL; Eosinophils% 3.8 % (0-5); Hematocrit 37.4 % (40-54); Hemoglobin 11.7 g/dL (13.0-16.5); Lymphocyte # 1.94 X10^3/ul (0.83-4.51); Lymphocyte % 25.6 % (19-41); Mean Corp Hgb Conc 31.3 g/dL (32-36); Mean Corpuscular Hgb 27.9 pg (27.0-32.0); Mean Corpuscular Volume 89.3 fL (80-94); Monocyte# 0.93 X10^3/uL; Monocyte% 12.3 % (0-10); NRBC Flagged by Analyzer 0 % (0-5); Neutrophil # 4.35 X10^3/uL (2.7-7.7); Neutrophil % 57.2 % (47-70); Platelet Count 188 K/mm3 (150-450); RBC Distribution Width CV 16.2 % (11.6-14.6); RBC Distribution Width SD 52.6 fl (35.1-43.9); Red Blood Count 4.19 M/mm3 (4.6-6.2); White Blood Count 7.6 K/mm3 (4.4-11.0)
[2024-11-05 09:00] LABS: Anion Gap 16 (5-15); BUN 63 mg/dL (4-19); BUN/Creat Ratio 12.4 RATIO (10-20); Calcium,Total 9.1 mg/dL (7.6-11.0); Carbon Dioxide 24.7 mmol/L (21.0-32.0); Chloride 90 mmol/L (98-108); EST Glomerular Filtration Rate 10 (>60); Glucose 81 mg/dL (70-99); Potassium 4.4 mmol/L (3.3-5.1); Sodium Level 131 mmol/L (133-145)
== END ==
LOC: OLS.WHLEAS 05:00
PROVIDERS: PCP Internal Medicine; Visit Provider Internal Medicine
DX: N18.6 End stage renal disease (principal)
CPT/HCPCS: 36415; 80048; 85025

== ENCOUNTER 2024-11-08 19:35 | Emergency (ER) | payer MEDICARE, MEDICAID, SELFPAY ==
[2024-11-08 19:36] VITALS: BP 113/67; PULSE 54; RESP 16; TEMP 37; O2SAT 98; BMI 32.5
[2024-11-08 19:39] VITALS: O2SAT 96
--- NOTE | 2024-11-08 19:51 | CT_ITS ---
PROCEDURE: BRAIN/HEAD WITHOUT CONTRAST 11/08/2024 REASON FOR EXAM: HEAD INJURY TECHNIQUE: BRAIN/HEAD WITHOUT CONTRAST Coronal and Sagittal reconstruction series were provided. One or more dose reduction techniques were used (e.g., Automated exposure control, adjustment of the mA and/or kV according to patient size, use of iterative reconstruction technique. RADIATION DOSE SUMMARY: CTDlvol: 44.99 mGy DLP: 880.47 mGycm COMPARISON: 07/07/2024. FINDINGS: Moderate global parenchymal atrophy. Chronic microvascular ischemia. No evidence of acute hemorrhage or infarction. No extra-axial blood or fluid collections. The paranasal sinuses and mastoid air cells are clear. The calvarial vault and skull base are intact. CT/Brain/Head without Contrast IMPRESSION: No acute intracranial abnormalities. Reading Location: [place] [address]
--- NOTE | 2024-11-08 19:54 | EDS_ITS ---
HPI <KRISTOFER Taylor - Last Filed: 11/08/24 22:12> HPI - Fall History of Present Illness Chief Complaint: Fall Narrative Narrative: 89-year-old male with PMH of DM2, ESRD on HD, A-fib on Eliquis, right BKA presents after a fall at his [facility]. He leaned forward and fell out of his wheelchair and struck his head on the ground. No LOC. He has a laceration on his nose and reports pain in the nose and eyebrow area. He states he does not really remember what happened but he feels fine now. No nausea or vomiting. No vision changes. Denies other injuries. 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 Wound, open, foot End stage renal disease MRSA (methicillin resistant staph aureus) culture positive Cutaneous abscess of right foot Diabetic infection of right foot Acute hyperkalemia Open wound Lives in [facility] Dietary restriction History of stress test History of echocardiogram Cardiology follow-up encounter History of atrial fibrillation Insulin dependent diabetes mellitus Other specified peripheral vascular diseases Type 2 diabetes mellitus with diabetic polyneuropathy Atherosclerosis of [place] artery of extremity with ulceration ESRD (end stage renal disease) Type 2 diabetes mellitus with foot ulcer Diabetes mellitus with diabetic 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 Pre-op testing Loose, teeth Wears glasses Cancer Dialysis patient Kidney disease Non-smoker Edema Syncope Chronic diastolic (congestive) heart failure (04/18/20) Paroxysmal atrial fibrillation Sinus bradycardia Type 2 diabetes mellitus Hyperkalemia Swelling of both lower extremities HLD (hyperlipidemia) Left bundle-branch block 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 Abnormal electrocardiogram Home Medications ?Medication ?Instructions ?Recorded ?Last Taken ?Type aspirin 81 mg tablet,delayed 81 mg PO DAILY heart heal th 07/01/20 08/28/24 History release (Adult Aspirin Regimen) torsemide 100 mg tablet 100 mg PO MOWEFR water pill 04/14/24 08/27/24 History insulin glargine 100 unit/mL (3 20 unit (0.2 mL) subcu t DINNER 04/24/24 08/28/24 Rx mL) subcutaneous pen diabetes 30 days #0 mL insulin lispro 100 unit/mL See Protocol subcut ACHS dm 05/04/24 08/28/24 History subcutaneous pen (Humalog KwikPen (U-100) Insulin) sennosides 8.6 mg-docusate sodium 1 tab-cap PO BID PRN PRN 06/04/24 06/05/24 History 50 mg tablet (Stimulant Laxative Constipation Plus) acetaminophen 325 mg tablet 650 mg PO Q8H PRN PRN Pain 1-10 Or 07/13/24 Unknown History Fever >100.7 cholecalciferol (vitamin D3) 125 125 mcg PO DAILY SUPP LEMENT 07/13/24 08/28/24 History mcg (5,000 unit) capsule insulin lispro 100 unit/mL 10 unit subcut TID DIABETES 07/13/24 08/28/24 History subcutaneous pen albuterol sulfate 2.5 mg/3 mL 2.5 mg (3 mL) inhalation Q2H PRN 07/20/24 Unknown Rx (0.083 %) solution for nebulization PRN SOB &/OR WHEEZ ING #0 mL benzocaine 15 mg-menthol 3.6 mg 2 mariaa mucous membrane Q2H PRN PRN 07/20/24 Unknown Rx lozenges (Sore Throat (benzocaine sore throat #0 ea with menthol)) menthol 0.44 %-zinc oxide 20.6 % 1 applic topical BID SKIN 07/20/24 08/28/24 Rx topical ointment (Calmoseptine) IRRITATION #0 grams nut.tx.gluc.intol,lac-free,soy 240 ml PO DAILY PRN SUP PLEMENT 10/29/24 Unknown History (Glucerna oral liquid) apixaban 2.5 mg tablet (Eliquis) 2.5 mg PO BID #180 ta bs 10/30/24 Unknown Rx Allergy/AdvReac Type Severity Reaction Status Date / Time pioglitazone (From Actos) Allergy fatigue Verified 11/08/24 19:39 simvastatin (From Zocor) Allergy myalgia Verified 11/08/24 19:39 sitagliptin (From Januvia) Allergy unknown Verified 11/08/24 19:39 Family History Mother Hypertension Father Diabetes COPD (chronic obstructive pulmonary disease) Surgical History (Reviewed 10/29/24 @ 11:00 by Pooja Ruano LCAC RADAR OPERATOR/NAVIGATOR, LCAC RADAR OPERATOR/NAVIGATOR-C) Hx of amputation History of incision and drainage Hx of foot surgery History of cataract extraction History of ligation of vein History of arteriovenostomy for renal dialysis History of inguinal hernia repair History of appendectomy Social History housing: [facility] current occupational status: retired Smoking Status: Never smoker alcohol intake: never substance use type: does not use caffeine: Yes Type: coffee Number of servings: 1 what type of physical activity do you participate in: none seatbelt use: always do you feel safe at home: Yes ROS <KRISTOFER Taylor - Last Filed: 11/08/24 22:12> ROS ED ROS Narrative Constitutional: Negative for fever, chills, malaise. CVS: Negative for chest pain, syncope. Respiratory: Negative for shortness of breath. GI: Negative for nausea, vomiting. Neuro: Negative for headache. EXAM <KRISTOFER Taylor - Last Filed: 11/08/24 22:12> Physical Exam Narrative Exam Narrative: CONST: Patient sitting in no acute distress. EYES: Normal inspection. PERRL, EOMI. HEAD: 1 cm horizontal superficial laceration on the top of the bridge of the nose with no active bleeding. No deformity or crepitus. No raccoon eyes or [place] sign, no nasal hematoma or epistaxis, no hemotympanum, no CSF otorrhea or rhinorrhea. NECK: Normal inspection. No midline spinal tenderness, no step off or crepitus. RESP: No respiratory distress, CTAB. Chest wall nontender. CVS: Regular rate and rhythm, no murmur, no gallop. ABD: Soft and nontender, no guarding or rebound, nondistended. EXTREMITIES: Normal appearance, small skin tear right hand between the 4th and 5th finger. Right leg amputation below the knee. NEURO: Alert to self, place, year and situation. Answers questions appropriately. PSYCH: Normal affect. Const Vital Signs: 11/08/24 19:36 11/08/24 19:39 11/08/24 21:36 Temperature 98.6 F Temperature Source Oral Pulse Rate 54 L 70 Respiratory Rate 16 18 Respiratory Effort Normal Non-Labored Respiratory Depth Normal Respiratory Pattern Normal Blood Pressure 113/67 138/74 H Blood Pressure Mean 82 95 Pulse Ox 98 96 98 Oxygen Delivery Method Room Air Room Air 11/08/24 22:11 11/08/24 23:00 Temperature 97.6 F L Temperature Source Pulse Rate 70 51 L Respiratory Rate 18 Respiratory Effort Respiratory Depth Respiratory Pattern Blood Pressure 138/74 H 101/38 L Blood Pressure Mean 95 59 Pulse Ox 98 94 Oxygen Delivery Method Room Air <Dr. Max Roberts DO - Last Filed: 11/08/24 23:39> Physical Exam Const Vital Signs: 11/08/24 19:36 11/08/24 19:39 11/08/24 21:36 Temperature 98.6 F Temperature Source Oral Pulse Rate 54 L 70 Respiratory Rate 16 18 Respiratory Effort Normal Non-Labored Respiratory Depth Normal Respiratory Pattern Normal Blood Pressure 113/67 138/74 H Blood Pressure Mean 82 95 Pulse Ox 98 96 98 Oxygen Delivery Method Room Air Room Air 11/08/24 22:11 11/08/24 23:00 Temperature 97.6 F L Temperature Source Pulse Rate 70 51 L Respiratory Rate 18 Respiratory Effort Respiratory Depth Respiratory Pattern Blood Pressure 138/74 H 101/38 L Blood Pressure Mean 95 59 Pulse Ox 98 94 Oxygen Delivery Method Room Air MDM <KRISTOFER Taylor - Last Filed: 11/08/24 22:12> [facility] Narrative Medical decision making narrative: History gathered from: Patient, EMS, family Differential includes closed head injury, intracranial hemorrhage, skull fracture 89-year-old male fell forward out of his wheelchair at his SNF and struck his head on the ground. No LOC. He has history of A-fib and is on Eliquis 2.5 mg twice daily. He is awake alert no distress. GCS 15. Vital stable. There is a superficial laceration on the bridge of his nose. He has no bony tenderness or deformity or crepitus. No nasal septal hematoma or epistaxis or signs of basilar skull fracture. Chest pain CT scan of the brain is negative. The attending reevaluated the patient after negative CT scan results. Family is at bedside and states he complained of left foot pain so an x-ray was obtained and is negative. His small wounds on the nasal bridge and right hand do not require repair and were cleansed and dressed. He he was discharged back to his SNF in stable condition. History & Record Review Discussion w/independent historian: Patient and Family Radiography Diagnostic Testing: Clinical Impression(s) from Imaging Studies Brain CT 11/08/24 19:51 IMPRESSION: No acute intracranial abnormalities. Reading Location: [id number] Foot X-Ray 11/08/24 21:20 IMPRESSION: No acute fracture is appreciated. Other abnormalities as detailed above. Reading Location: [facility] ED attending interpretation of left foot shows no acute fracture or dislocation. <Dr. Max Roberts, DO - Last Filed: 11/08/24 23:39> MDM Radiography Diagnostic Testing: Clinical Impression(s) from Imaging Studies Brain CT 11/08/24 19:51 IMPRESSION: No acute intracranial abnormalities. Reading Location: [id number] Foot X-Ray 11/08/24 21:20 IMPRESSION: No acute fracture is appreciated. Other abnormalities as detailed above. Reading Location: [facility] Treatment and Re-Evaluation Narrative: Attending note: I have personally performed a face to face assessment of the patient and have reviewed the MANI note. I personally made/approved the management plan and take responsibility for the patient management. I performed a substantive portion of the visit including all aspects of the following. My figueroa findings include: Sent from [facility] facility fall out of his recliner. Normally wheelchair-bound. On Eliquis for paroxysmal A-fib from paperwork. Family presents baseline. Exam GCS 15 abrasion to his nasal no active bleeding there is dried blood. Skin tear to his right hand with no bony pain. Left foot tenderness midfoot area skin was intact. Initial CT brain negative. X-ray added to his foot tenderness also negative. Abrasions was cleansed by nursing and dressing placed. Patient discharged back to facility. Discharge Plan Triage Chief Complaint: Fall ED Midlevel Provider: Xena Zimmer ED Provider: Max Roberts Dx/Rx/DC Orders Clinical Impression: Fall, Closed head injury, Laceration of nose, Skin tear of right hand without complication Instructions: ED Head Injury (Adult) Prescriptions: No Action torsemide 100 mg tablet 100 mg PO MOWEFR Patient Comments: on non-dialysis days insulin glargine 100 unit/mL (3 mL) insulin pen 20 unit SC DINNER 30 Days Qty: 0 0RF Rx Instructions: Hold if glucose less than 130 mg/dl cholecalciferol (vitamin D3) 125 mcg (5,000 unit) capsule 125 mcg PO DAILY insulin lispro 100 unit/mL insulin pen 10 unit subcut TID Patient Comments: BEFORE MEALS acetaminophen 325 mg Tablet 650 mg PO Q8H PRN PRN (Reason: Pain 1-10 Or Fever >100.7) albuterol sulfate 2.5 mg /3 mL (0.083 %) Solution For Nebulization 2.5 mg inhalation Q2H PRN PRN (Reason: SOB &/OR WHEEZING) Qty: 0 0RF Sore Throat (benzocaine-menth) 15-3.6 mg Lozenge 2 mariaa mucous membrane Q2H PRN PRN (Reason: sore throat) Qty: 0 0RF menthol-zinc oxide [Calmoseptine] 0.44-20.6 % Ointment 1 applic topical BID Qty: 0 0RF Protocol: *Topical Application Instructions APPLICATION INSTRUCTIONS: apply to buttocks insulin lispro [Humalog KwikPen Insulin] 100 unit/mL Insulin Pen See Protocol subcut ACHS Protocol: 3. Sliding Scale Insulin Med Dosing Condition: 150-189 mg/dl = 1 unit Condition: 190-229 mg/dl = 2 units Condition: 230-269 mg/dl = 3 units Condition: 270-309 mg/dl = 4 units Condition: 310-349 mg/dl = 5 units Condition: 350-399 mg/dl = 6 units Condition: 400-449 mg/dl = 7 units Condition: Greater than 449 call physician Protocol Text: Suggested for: - Patients on Total Daily Insulin Dose of 37-55 units - Obese, infected, or steroid patients MEDIUM DOSING ALGORITHIM Rx Instructions: 150-189 1 unit,190-229 2 unit, 230-269 3 unit, 270-309 4 unit, 310-349 5 unit, 350-399 6 unit, 400-449 7 unit, 450-500 call physicion sennosides-docusate sodium [Stimulant Laxative Plus] 8.6-50 mg Tablet 1 tab-cap PO BID PRN PRN (Reason: Constipation) Glucerna Liquid 240 ml PO DAILY PRN (Reason: SUPPLEMENT) aspirin [Adult Aspirin Regimen] 81 mg tablet,delayed release (DR/EC) 81 mg PO DAILY Eliquis 2.5 mg tablet 2.5 mg PO BID Qty: 180 3RF Primary Care Provider: Nando Wiggins Referrals: Nando Wiggins MD [Primary Care Provider] - Activity Restrictions/Additional Instructions: CT scan of the brain showed no broken bones or internal bleeding. Give Tylenol as needed. Keep the small nasal wound clean. If symptoms worsen such as a severe headache, vomiting, confusion please return to the ER. Print Language: Citizen Of [place] Disposition Disposition: Home, Self Care
[2024-11-08] MEDS: Acetaminophen 325 MG Tablet 650 MG PO (19:56)
--- OUTSIDE RECORDS SUMMARY | 2024-11-08 20:24 | XMS RPT_ITS | CCD ---
Author Organization [place] [facility] Care Team Providers Care Social Economist Name Role Phone Patricia HALL, Alanna Jacobson Unavailable Unavailable Carmen Hurt Unavailable Unavailable ISABEL Kraus, Bernarda Raymundo Unavailable Unavailhoward Gomez RN, Alanna Jacobson Unavailable Unavailable Carmen Hurt Unavailable Unavailable Justyn West Y Unavailable Unavailable Carmen Hurt Unavailable Unavailable Husam Yan MD Primary Care Provider Dr. Jean Yan Primary Care Provider [phone] Dr. Jean Yan Referring Provider EMILY Foley Attending Provider Dr. Randal Macias Attending Provider Dr. Randal Macias Referring Provider Dr. 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 Collier Primary Care Provider Paola MANAGER MASSAGE DEPARTMENT-C, Meredith Attending Provider Nando Wiggins MD Referring Provider Unavailuzma Mendoza DPM, Dr. Kelley Referring Provider Yuriy AVILA, Dr. Pena Referring Provider Salma Dugan Attending Provider Jerome AVILA, Dr. Byers Emergency Provider Arlin DIEZ, Dr. Conley Admit Provider Arlin DIEZ, Dr. Conley Attending Provider Artie AVILA, Dr. Jackson Other Provider Arlin DIEZ, Dr. Conley Other Provider Rigoberto AVILA, Dr. Reyes Attending [...] Referring Provider Nando Wiggins MD Referring Provider Unavailuzma Wiggins MD, Dr. Collier Primary Care Provider Salma Dugan Attending Provider Nando Mejia Referring Unavailabl e Oleghe OLS, Efewongbe Attending Unavailabl e Bursley, Jean Primary Care Unavailable Oleghe OLS, Efewongbe Attending Unavailabl e Oleghe, Efewongbe Primary Care Unavailable Oleghe OLS, Efewongbe Attending Unavailabl e Oleghe, Efewongbe Primary Care Unavailable Des Ruelas Attending Unavailable Des Ruelas Referring Unavailable Bursley, Jean Primary Care Unavailable Christopher, Earl Admitting Unavailable Rockham, Earl Referring Unavailable Randal Damico Consulting Unavailable Randal Damico Attending Unavailable Oleghe, Efewongbe Primary Care Unavailable Artie, Jayaprakas Consulting Unavailable Christopher, Earl Consulting Unavailable Sulaiman Whiteic Attending Unavailable Salma Cervantes Attending Unavailable Warren Mendoza Consulting Unavailable Jayla Osuna Admitting Unavailable Bursley, Jean Primary Care Unavailable Earl Mora Attending Unavailable Artie, Jayaprakas Consulting Unavailable Jayla Osuna Consulting Unavailable Randal Shore Consulting Unavailable Earl White Consulting Unavailable Fernando Oliveros Consulting Unavailable Earl Mora Consulting Unavailable Oleghe OLS, Efewongbe Attending Unavailabl e Oleghe, Efewongbe Primary Care Unavailable ChristopherSulaimanic Attending Unavailable Christopher, Ealr Referring Unavailable Bursley, Jean Primary Care Unavailable Des Ruelas Attending Unavailable Warren Mendoza Referring Unavailable Bursley, Jean Primary Care Unavailable Warren Mendoza Referring Unavailable Randal Damico Attending Unavailable Oleghe, Efewongbe Primary Care Unavailable Oleghe, Efewongbe Primary Care Unavailable Alicia Loo Attending Unavailable Oleghe, Efewongbe Primary Care Unavailable Des Garcia Attending Unavailable Warren Mendoza Attending Unavailable Warren Mendoza Referring Unavailable Bursley, Jean Primary Care Unavailable Earl White Attending Unavailable Meredith Guevara NP Attending Unavailable Oleghe, Efewongbe Primary Care Unavailable Deni Shields Referring Unavailable Jaswant Montgomery Consulting Unavailable Jaswant Montgomery Admitting Unavailable Salma Cervantes Attending Unavailable Bursley, Jean Primary Care Unavailable Randal Shore Consulting Unavailable Tanphaichitr, Natthavat Consulting Unavaila Des Mcintyre Consulting Unavailable Earl White Consulting Unavailable Deni Shields Consulting Unavailable Deni Shields Attending Unavailable Jaswant Montgomery Consulting Unavailable Jaswant Montgomery F Admitting Unavailable Bursley, Jean Primary Care Unavailable Randal Shore Consulting Unavailable Bee Hernandez Consulting UnavailDes Mccauley Consulting Unavailable Earl White Consulting Unavailable Oleghe, Efewongbe Primary Care Unavailable Paola MANAGER MASSAGE DEPARTMENT, Meredith Attending Unavailable Oleghe, Efewongbe Primary Care Unavailable Paola MANAGER MASSAGE DEPARTMENT, Meredith Attending Unavailable Oleghe, Efewongbe Attending Unavailable Oleghe, Efewongbe Primary Care Unavailable Oleghe, Efewongbe Primary Care Unavailable Bursley, Jean Referring Unavailable Salma Cervantes Attending Unavailable Oleghe, Efewongbe Attending Unavailable Bursley, Jean Primary Care Unavailable Bursley, Jean Primary Care Unavailable Paola MANAGER MASSAGE DEPARTMENT, Meredith Attending Unavailable Paola MANAGER MASSAGE DEPARTMENT, Meredith Attending Unavailable Oleghe, Efewongbe Primary Care Unavailable Paola MANAGER MASSAGE DEPARTMENT, Meredith Attending Unavailable Oleghe, Efewongbe Primary Care Unavailable Jayla Osuna Consulting Unavailable Jayla Osuna Admitting Unavailable Jayla Osuna Attending Unavailable Chung Humphreys Referring Unavailable Oleghe, Efewongbe Primary Care Unavailable Jayla Osuna Admitting Unavailable Josef Garcia Consulting Unavailable Chung Humphreys Referring Unavailable Juan Antonio Holden Attending Unavailable Oleghe, Efewongbe Primary Care Unavailable Manuel Alva Consulting Unavailable Jayla Osuna Consulting Unavailable Randal Shore Consulting Unavailable Juan Antonio Holden Consulting Unavailable Paola MANAGER MASSAGE DEPARTMENT, Meredith Attending Unavailable Oleghe, Efewongbe Primary Care Unavailable Paola MANAGER MASSAGE DEPARTMENT, Meredith Attending Unavailable Oleghe, Efewongbe Primary Care Unavailable Jayla Osuna Attending Unavailable Oleghe, Efewongbe Primary Care Unavailable Franklin, Eric Attending Unavailable Oleghe OLS, Efewongbe Attending Unavailabl e Oleghe, Efewongbe Primary Care Unavailable Oleghe OLS, Efewongbe Attending Unavailabl e Bursley, Jean Primary Care Unavailable Oleghe OLS, Efewongbe Attending Unavailabl e Bursley, Jean Primary Care Unavailable Salma Cervantes Attending Unavailable Salma Cervantes Referring Unavailable Oleghe, Efewongbe Primary Care Unavailable Warren Mendoza Referring Unavailable Randal Damico Attending Unavailable Oleghe, Efewongbe Primary Care Unavailable Oleghe, Efewongbe Primary Care Unavailable Oleghe OLS, Efewongbe Attending Unavailabl e Artie, Jayaprakas Consulting Unavailable Oleghe, Efewongbe Primary Care Unavailable Fernando Oliveros Admitting Unavailable Fernando Oliveros Attending Unavailable Oleghe OLS, Efewongbe Referring Unavailabl e Oleghe OLS, Efewongbe Attending Unavailabl e Oleghe, Efewongbe Primary Care Unavailable Oleghe OLS, Efewongbe Attending Unavailabl e Bursley, Jean Primary Care Unavailable Rockham, Earl Attending Unavailable Christopher, Earl Referring Unavailable Christopher, Earl Admitting Unavailable Sisdhaval, Randal Consulting Unavailable Oleghe, Efewongbe Primary Care Unavailable Artie, Jayaprakas Consulting Unavailable Oleghe OLS, Efewongbe Attending Unavailabl e Oleghe, Efewongbe Primary Care Unavailable Margarette Godinez Attending Unavailable Margarette Godinez Consulting Unavailable Oleghe OLS, Efewongbe Attending Unavailabl e Bursley, Jean Primary Care Unavailable Siska, Randal Consulting Unavailable Siska, Randal Attending Unavailable Siska, Randal Referring Unavailable Oleghe, Efewongbe Primary Care Unavailable Oleghe, Efewongbe Primary Care Unavailable Zenaida Cooper Attending Unavailabl e Rockham, Earl Attending Unavailable Jayla Osuna Referring Unavailable Oleghe, Efewongbe Primary Care Unavailable Christopher, Earl Attending Unavailable Enrrique Jayla Referring Unavailable Oleghe, Efewongbe Primary Care Unavailable Warren Mendoza Consulting Unavailable Warren Mendoza Referring Unavailable Bursley, Jean Primary Care Unavailable Salma Cervantes Attending Unavailable Rockham, Earl Referring Unavailable Rockham, Earl Consulting Unavailable Rockham, Earl Attending Unavailable Bursley, Jean Primary Care Unavailable Warren [...] Oleghe, Efewongbe Primary Care Unavailable Randal Damico Consulting Unavailable Randal Damico Attending Unavailable Randal Damico Referring Unavailable Oleghe, Efewongbe Primary Care Unavailable Deni Shields Attending Unavailable Salma Cervantes Attending Unavailable Oleghe, Efewongbe Referring Unavailable Oleghe, Efewongbe Primary Care Unavailable Oleghe, Efewongbe Primary Care Unavailable Yuriy, Jean Referring Unavailable Pooja Ruano NP Attending Unavailable Fernando Oliveros Attending Unavailable Oleghe OLS, Efewongbe Attending Unavailabl e Bursley, Jean Primary Care Unavailable Oleghe OLS, Efewongbe Attending Unavailabl e Bursley, Jean Primary Care Unavailable Warren Mendoza Referring Unavailable Randal Damico Attending Unavailable Oleghe, Efewongbe Primary Care Unavailable Oleghe OLS, Efewongbe Attending Unavailabl e Oleghe, Efewongbe Primary Care Unavailable Oleghe OLS, Efewongbe Attending Unavailabl e Oleghe, Efewongbe Primary Care Unavailable Oleghe OLS, Efewongbe Attending Unavailabl e Oleghe, Efewongbe Primary Care Unavailable Salma Cervantes Attending Unavailable Fernando Oliveros Referring Unavailable Salma Cervantes Attending Unavailable Oleghe, Efewongbe Primary Care Unavailable Oleghe, Efewongbe Referring Unavailable Oleghe, Efewongbe Primary Care Unavailable Meredith Guevara NP Attending Unavailable Oleghe OLS, Efewongbe Attending [...] Unavailabl e Oleghe, Efewongbe Primary Care Unavailable Pierson OLS, Yunior K Attending Unavailable Bursley, Jean Primary Care Unavailable Bursley, Jean Primary Care Unavailable Itz Mahan Referring Unavailable Warren Jackson Attending Unavailable Jayla Osuna Referring Unavailable RockhamEarl hightower Attending Unavailable Bursley, Jean Primary Care Unavailable Christopher, Earl Attending Unavailable Cervantes, Salma Referring Unavailable Oleghe, Efewongbe Primary Care Unavailable Deni Shields Referring Unavailable Cervantes, Salma Attending Unavailable Bursley, Jean Primary Care Unavailable Christopher, Earl Attending Unavailable Cervantes, Salma Referring Unavailable Cervantes, Salma Attending Unavailable Oleghe, Efewongbe Primary Care Unavailable Oleghe, Efewongbe Referring Unavailable Warren Mendoza Referring Unavailable Randal Damico Consulting Unavailable Randal Damico Attending Unavailable Oleghe, Efewongbe Primary Care Unavailable Christopher Earl Referring Unavailable Christopher Earl Admitting Unavailable Oleghe, Efewongbe Primary Care Unavailable Mookie Randal Consulting Unavailable Randal Damico Attending Unavailable Sulaiman Whiteic Consulting Unavailable Earl White Attending Unavailable Artie, Jayaprakas Consulting Unavailable Randal Damico Attending Unavailable Warren Mendoza Referring Unavailable Oleghe, Efewongbe Primary Care Unavailable Jayla Osuna Admitting Unavailable Jayla Osuna Consulting Unavailable Margarette Godinez Attending Unavailable Chung Humphreys Referring Unavailable Oleghe, Efewongbe Primary Care Unavailable Navin, Juan Antonio Consulting Unavailable Randal Shore Consulting Unavailable Artie, Jayaprakas Consulting Unavailable Josef Garcia Consulting Unavailable Warren Mendoza Consulting Unavailable Jayla Osuna Admitting Unavailable Juan Antonio Holden Attending Unavailable Bursley, Jean Primary Care Unavailable Artie, Jayaprakas Consulting Unavailable Jayla Osuna Consulting Unavailable Randal Shore Consulting Unavailable Christopher Earl Consulting Unavailable Fernando Oliveros Consulting Unavailable Earl Mora Consulting Unavailable Jaswant Montgomery Attending Unavailable Artie, Jayaprakas Consulting Unavailable Oleghe, Efewongbe Primary Care Unavailable Fernando Oliveros Admitting Unavailable Fernando Oliveros Attending Unavailable Fernando Oliveros Consulting Unavailable Juan Antonio Holden Attending Unavailable Navin, Juan Antonio Consulting Unavailable Jayla Osuna Attending Unavailable Bursley, Jean Primary Care Unavailable Jayla Osuna Attending Unavailable Oleghe OLS, Efewongbe Attending Unavailabl e Holliee, Efewongbe Primary Care Unavailable Rosalie KAELA Efbiancaongbe Attending Unavailabl e Holliee, Efewongbe Primary Care Unavailable Rosalie KAELA Efbiancaongbe Attending Unavailabl e Meekghe, Efewongbe Primary Care Unavailable Rosalie KAELA Debongbe Attending UnavailJean Agudelo Primary Care Unavailable Allergies Allergy Classification Reported Allergen(s) Allergy Type Date of Onset Reaction(s) Facility (20 sources) atenolol; Translations: [ATENOLOL] allergy to substance 0 GI Upset [facility] Work Phone: (17 sources) pioglitazone drug allergy 7 fatigue [facility] Work Phone: (12 sources) simvastatin drug allergy 7 myalgia [facility] Work Phone: (12 sources) SITagliptin drug allergy 7 [facility] Work Phone: (20 sources) pioglitazone; Translations: [PIOGLITAZONE HCL] Drug Allergy 7 Other: See Comments [facility] Work Phone: (20 sources) Simvastatin; Translations: [SIMVASTATIN] Drug Allergy 7 myalgia [facility] Work Phone: (20 sources) SITagliptin; Translations: [SITAGLIPTIN] Drug Allergy 4 Other: See Comments [facility] (5 sources) pioglitazone Drug Allergy 2 fatigue [facility] (12 sources) semaglutide; Translations: [SEMAGLUTIDE] Drug Allergy 4 GI Upset [facility] (1 source) pioglitazone Drug Allergy 5 [facility] (1 source) Simvastatin Drug Allergy 5 [facility] (1 source) SITagliptin Drug Allergy 5 [facility] Medications Current Medications Medication Drug Class(es) Dates Sig (Normalized) Sig (Original) 0.25 MG, 0.5 MG Dose 3 ML semaglutide 0.68 MG/ML Pen Injector [Ozempic] (1 source) Start: 04-17-2024 Ozempic 2 mg/3 mL (0.25 mg or [...] TBEC One tablet by mouth daily ASPIRIN [id number] Bernarda Kraus RN Start: 04-06-2013 take 1 tablet by davin th once daily at mealtime Aspirin 81 mg tab Take 1 tablet by mouth once daily. Take with food. 30 tablet 11 04/06/2013 Active Comment on above: Take 1 [...] One tablet by mouth daily CHOLECALCIFEROL CAPS [id number] Laron Bacon MD take 1 tablet by [...] daily. docusate sodium 50 mg / sennosides, fpc 8.6 mg oral tablet (8 sources) Start: [...] edema, with long-term current use of insulin ([facility]) 1 Units four times daily. 1 Each [...] One tablet by mouth daily AMLODIPINE BESYLATE [id number] Bernarda Kraus RN amoxicillin 250 mg / [...] TABS One tablet by mouth daily ATENOLOL [id number] Bernarda Kraus RN B COMPLEX VITAMINS (2 sources) Start: 10-27-2016 take 1 tablet by mouth once daily B COMPLEX-B12 TABS One tablet by mouth daily B COMPLEX VITAMINS [id number] Laron Bacon MD B COMPLEX VITAMINS (3 sources) Start: 10-27-2016 take 1 tablet by mouth once daily B COMPLEX-B12 TABS One tablet by mouth daily B COMPLEX VITAMINS [id number] Laron Bacon MD cephalexin 500 mg oral capsule (5 sources) Cephalosporin Antibacterial Start: 10-13-2020 End: 10-18-2020 cinnamon bark 500 mg oral capsule (7 sources) Start: 10-26-2016 take 1 tablet by mouth once daily CINNAMON 500 MG CAPS One tablet by mouth daily CINNAMON [id number] Bernarda Kraus RN clopidogrel 75 mg oral [...] tablet by davin th once daily Vitamin C51-Diets Acid Active 1 TABLET PO DAILY October [...] TABS One tablet by mouth daily GLIPIZIDE [id number] Bernarda Kraus RN Comment on above: Take [...] TABS One tablet by mouth daily HYDROCHLOROTHIAZIDE [id number] Laron Bacon MD sodium hypochlorite 2.5 mg/m [...] edema, without long-term current use of insulin ([facility]) Inject 20 Units subcutaneously once daily. 18 [...] edema, without long-term current use of insulin ([facility]) Inject 18 Units subcutaneously once daily. 5 Each 0 02/08/2022 06/07/2022 Discontinued Start: 09-02-2021 End: 08-07-2022 insulin glargine ([facility] U-100 INSULIN) 100 unit/mL (3 mL) Indications: 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 edema, without long-term current use of insulin ([facility]) Inject 18 Units subcutaneously once daily. 5 Each 0 02/08/2022 08/07/2022 Active Start: 03-04-2021 End: 09-02-2021 insulin glargine (L[facility] [facility] OSTAR U-100 INSULIN) 100 unit/mL (3 mL) Indications: 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 edema, without long-term current use of insulin ([facility]) Inject 22 Units subcutaneously once daily. 5 [...] pen injector (20 sources) Insulin Analog Start: End: 5 krill oil (5 sources) Start: 7 take 1 tablet by mouth once daily HM MEGAKRILL CAPS One tablet by mouth daily KRILL OIL CAPS [id number] Laron Bacon MD 3 ml liraglutide 6 mg/ml pen injector (12 sources) GLP-1 Receptor Agonist Start: 7 End: 8 Start: 05-12-2017 End: 05-04-2018 Liraglutide Discontinued SC 6 60 May 12, 2017 1:00am May 04, 2018 10:45am Start: 10-26-2016 NICOLE novoa directed LIRAGLUTIDE SOLN [id number] Bernarda Kraus RN lisinopril 40 mg oral tablet (12 sources) Angiotensin Converting Enzyme Inhibitor Start: 05-12-2017 End: 05-02-2020 Start: 10-26-2016 take 1 tablet by davin th once daily ZESTRIL 40 MG TABS One tablet by mouth daily LISINOPRIL [id number] Bernarda Kraus RN methylsulfonylmethane (5 sources) Start: 10-27-2016 take 1 tablet by mouth once daily [facility] MSM CAPS One tablet by mouth daily METHYLSULFONYLMETHANE CAPS [id number] Laron Bacon MD metoprolol tartrate 25 mg oral tablet (5 sources) beta-Adrenergi c Prakash Start: 04-18-2020 End: 05-02-2020 miconazole nitrate 20 mg/ml topical cream (4 sources) Azole Antifungal Start: 04-24-2024 End: 05-10-2024 nystatin [id number] unt/ml topical cream (4 sources) Polyene Antifungal [...] Acute and unspecified renal failure (5 sources) [id number] renal failure; Translations: [Acute kidney failure, unspecified] [...] 10-26-2016 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, right leg; Translations: [Atherosclerosis of [place] artery of right leg with gangrene] Onset: [...] Translations: [Other specified peripheral vascular diseases] Onset: 5 Chronic Other circulatory disease (12 sources) Electrocardiogram [...] (4 sources) Long-term drug therapy; Translations: [Other shelter (current) drug therapy] Onset: 7 10-26-2016 Past [...] 09-22-2011 Episodic Other aftercare (3 sources) 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; Translations: [Other shelter (current) drug therapy] Onset: 10-26-2016 10-26-2016 Episodic Other aftercare (1 source) care home (current) use of insulin; Translations: [Type 2 [...] Visit Reporton Cardiology Visit Report Normal [facility] Surgery Visit Reporton 10-17 Surgery Visit Report Normal [facility] Absolute lymphocyte countOrd ered By: Nando Wiggins on 10-16-2024 Lymphocytes Auto (Unsp spec) [#/Vol] 1.40 10*3/uL 0.83-4.51 [facility] Anion gap in Serum or Plasma Ordered By: Nando Wiggins on 10-16-2024 Anion gap [Moles/Vol] 14 mmol/L 5-15 [facility] Automated lymphocyte count a s percentage of total leukocytesOrdered By: Nando Wiggins on 10-16-2024 Lymphocytes/100 WBC Auto (Unsp spec) 15.9 % Low 19-41 [facility] BUN/creatinine ratioOrdered By: Nando Wiggins on 10-16-2024 Urea nitrogen/Creatinine [Mass ratio] 13.8 mg/mg 10-20 [facility] Basophil percentageOrdered B y: Nando Wiggins on 10-16-2024 Basophils/100 WBC (Bld) 0.7 % 0-1 [facility] Carbon dioxide, total [Moles /volume] in Central venous bloodOrdered By: Nando Wiggins on 10-16-2024 CO2 [Moles/Vol] 27.7 mmol/L 21.0-32.0 [facility] Chloride assayOrdered By: Kathie Wiggins on 10-16-2024 Chloride [Moles/Vol] 93 mmol/L Low 98-108 [facility] Eosinophil percentageOrdered By: Nando Wiggins on 10-16-2024 Eosinophils/100 WBC (Bld) 2.7 % 0-5 [facility] Erythrocyte distribution wid th ratioOrdered By: Nando Wiggins on 10-16-2024 Erythrocyte distribution width (RBC) [Ratio] 15.8 % High 11.6-14.6 [facility] Erythrocyte distribution wid th standard deviationOrdered By: Nando Wiggins on 10-16-2024 Erythrocyte distribution width (RBC) [Ratio] 52.2 fl High 35.1-43.9 [facility] Glomerular filtration rate ( GFR) estimation/1.73 sq m using serum, plasma, or whole bOrdered By: Nando Wiggins on 10-16-2024 GFR/1.73 sq M.predicted among non-blacks MDRD (S/P/Bld) [Vol rate/Area] 9 mL/min/{1.73_m2} Low >60 [facility] Hematocrit Auto (Bld) [Volum e fraction]Ordered By: Nando Wiggins on 10-16-2024 Hematocrit (Bld) [Volume fraction] 34.0 % Low 40-54 [facility] Hemoglobin measurementOrdere d By: Nando Wiggins on 10-16-2024 Hemoglobin (Bld) [Mass/Vol] 10.4 g/dL Low 13.0-16.5 [facility] Immature granulocytes/100 WB C Auto (Bld)Ordered By: Nando Wiggins on 10-16-2024 Immature granulocytes/100 WBC (Bld) 0.300 % 0.0-0.9 [facility] MCV (mean corpuscular volume ) determinationOrdered By: Nando Wiggins on 10-16-2024 MCV (RBC) [Entitic vol] 90.2 fL 80-94 [facility] Mean corpuscular hemoglobin (MCH) determinationOrdered By: Nando Wiggins on 10-16-2024 MCH (RBC) [Entitic mass] 27.6 pg 27.0-32.0 [facility] Monocyte percentageOrdered B y: Nando Wiggins on 10-16-2024 Monocytes/100 WBC (Bld) 9.3 % 0-10 [facility] Neutrophil percentageOrdered By: Nando Wiggins on 10-16-2024 Neutrophils/100 WBC (Bld) 71.1 % High 47-70 [facility] Platelet countOrdered By: Kathie Wiggins on 10-16-2024 Platelets (Bld) [#/Vol] 152 10*3/uL 150-450 [facility] Potassium measurement (mass/ volume)Ordered By: Nando Wiggins on 10-16-2024 Potassium (Unsp spec) [Mass/Vol] 4.6 mmol/L 3.3-5.1 [facility] RBC Auto (Bld) [#/Vol]Ordere d By: Nando Wiggins on 10-16-2024 RBC (Bld) [#/Vol] 3.77 10*6/uL Low 4.6-6.2 [facility] Serum creatinine measurement (mass/volume)Ordered By: Nando Wiggins on 10-16-2024 Creatinine [Mass/Vol] 5.65 mg/dL High 0.70-1.20 [facility] Serum glucose measurement (m ass/volume)Ordered By: Nando Wiggins on 10-16-2024 Glucose [Mass/Vol] 169 mg/dL High 70-99 [facility] Serum or plasma calcium lilli urement (mass/volume)Ordered By: Nando Wiggins on 10-16-2024 Calcium [Mass/Vol] 8.9 mg/dL 7.6-11.0 [facility] Serum or plasma urea nitroge n measurement (mass/volume)Ordered By: Nando Wiggins on 10-16-2024 Urea nitrogen [Mass/Vol] 78 mg/dL High 4-19 [facility] Sodium levelOrdered By: Deb Wiggins on 10-16-2024 Sodium [Moles/Vol] 135 mmol/L 133-145 [facility] White blood cell (WBC) count Ordered By: Nando Meekcheko on 10-16-2024 WBC (Bld) [#/Vol] 8.8 10*3/uL 4.4-11.0 [facility] Absolute lymphocyte countOrd ered By: Deblilian Wiggins on 10-08-2024 Lymphocytes Auto (Unsp spec) [#/Vol] 1.87 10*3/uL 0.83-4.51 [facility] Anion gap in Serum or Plasma Ordered By: Nando Wiggins on 10-08-2024 Anion gap [Moles/Vol] 13 mmol/L 5-15 [facility] Automated lymphocyte count a s percentage of total leukocytesOrdered By: Nando Wiggins on 10-08-2024 Lymphocytes/100 WBC Auto (Unsp spec) 27.5 % - [facility] BUN/creatinine ratioOrdered By: Nando Edenlakshminereida on 10-08-2024 Urea nitrogen/Creatinine [Mass ratio] 13.2 mg/mg 10-20 [facility] Basophil percentageOrdered B y: Nando Edenlakshminereida on 10-08-2024 Basophils/100 WBC (Bld) 1.0 % 0-1 [facility] Carbon dioxide, total [Moles /volume] in Central venous bloodOrdered By: Nando Edenlakshminereida on 10-08-2024 CO2 [Moles/Vol] 26.7 mmol/L 21.0-32.0 [facility] Chloride assayOrdered By: Kathie Wiggins on 10-08-2024 Chloride [Moles/Vol] 95 mmol/L Low 98-108 [facility] Eosinophil percentageOrdered By: Nando Edenlakshminereida on 10-08-2024 Eosinophils/100 WBC (Bld) 2.9 % 0-5 [facility] Erythrocyte distribution wid th ratioOrdered By: Deblilian Meeklakshminereida on 10-08-2024 Erythrocyte distribution width (RBC) [Ratio] 16.0 % High 11.6-14.6 [facility] Erythrocyte distribution wid th standard deviationOrdered By: Nando Edenlakshminereida on 10-08-2024 Erythrocyte distribution width (RBC) [Ratio] 54.2 fl High 35.1-43.9 [facility] Glomerular filtration rate ( GFR) estimation/1.73 sq m using serum, plasma, or whole bOrdered By: Nando Wiggins on 10-08-2024 GFR/1.73 sq M.predicted among non-blacks MDRD (S/P/Bld) [Vol rate/Area] 12 mL/min/{1.73_m2} Low >60 [facility] Hematocrit Auto (Bld) [Volum e fraction]Ordered By: Nando Wiggins on 10-08-2024 Hematocrit (Bld) [Volume fraction] 35.5 % Low 40-54 [facility] Hemoglobin measurementOrdere d By: Nando Wiggins on 10-08-2024 Hemoglobin (Bld) [Mass/Vol] 10.7 g/dL Low 13.0-16.5 [facility] Immature granulocytes/100 WB C Auto (Bld)Ordered By: Nando Wiggins on 10-08-2024 Immature granulocytes/100 WBC (Bld) 0.400 % 0.0-0.9 [facility] MCV (mean corpuscular volume ) determinationOrdered By: Nando Wiggins on 10-08-2024 MCV (RBC) [Entitic vol] 91.0 fL 80-94 [facility] Mean corpuscular hemoglobin (MCH) determinationOrdered By: fili Wiggins on 10-08-2024 MCH (RBC) [Entitic mass] 27.4 pg 27.0-32.0 [facility] Monocyte percentageOrdered B y: Nando Wiggins on 10-08-2024 Monocytes/100 WBC (Bld) 8.2 % 0-10 [facility] Neutrophil percentageOrdered By: biancasalinaswolf Wiggins on 10-08-2024 Neutrophils/100 WBC (Bld) 60.0 % 47-70 [facility] Platelet countOrdered By: Kathie Wiggins on 10-08-2024 Platelets (Bld) [#/Vol] 164 10*3/uL 150-450 [facility] Potassium measurement (mass/ volume)Ordered By: fili Wiggins on 10-08-2024 Potassium (Unsp spec) [Mass/Vol] 4.1 mmol/L 3.3-5.1 [facility] RBC Auto (Bld) [#/Vol]Ordere d By: Nando Wiggins on 10-08-2024 RBC (Bld) [#/Vol] 3.90 10*6/uL Low 4.6-6.2 [facility] Serum creatinine measurement (mass/volume)Ordered By: Nando Wiggins on 10-08-2024 Creatinine [Mass/Vol] 4.42 mg/dL High 0.70-1.20 [facility] Serum glucose measurement (m ass/volume)Ordered By: Nando Wiggins on 10-08-2024 Glucose [Mass/Vol] 177 mg/dL High 70-99 [facility] Serum or plasma calcium lilli urement (mass/volume)Ordered By: Nando Wiggins on 10-08-2024 Calcium [Mass/Vol] 9.2 mg/dL 7.6-11.0 [facility] Serum or plasma urea nitroge n measurement (mass/volume)Ordered By: Nando Wiggins on 10-08-2024 Urea nitrogen [Mass/Vol] 59 mg/dL High 4-19 [facility] Sodium levelOrdered By: Deb lilian Rosalie on 10-08-2024 Sodium [Moles/Vol] 135 mmol/L 133-145 [facility] White blood cell (WBC) count Ordered By: Nando Wiggins on 10-08-2024 WBC (Bld) [#/Vol] 6.8 10*3/uL 4.4-11.0 [facility] Surgery Visit Reporton 10-03 Surgery Visit Report Normal [facility] Absolute lymphocyte countOrd ered By: Nando Wiggins on 10-02-2024 Lymphocytes Auto (Unsp spec) [#/Vol] 1.76 10*3/uL 0.83-4.51 [facility] Anion gap in Serum or Plasma Ordered By: Nando Wiggins on 10-02-2024 Anion gap [Moles/Vol] 14 mmol/L - [facility] Automated lymphocyte count a s percentage of total leukocytesOrdered By: Nando Wiggins on 10-02-2024 Lymphocytes/100 WBC Auto (Unsp spec) 25.6 % - [facility] BUN/creatinine ratioOrdered By: Nando Wiggins on 10-02-2024 Urea nitrogen/Creatinine [Mass ratio] 17.4 mg/mg 10-20 [facility] Basophil percentageOrdered B y: Nando Wiggins on 10-02-2024 Basophils/100 WBC (Bld) 1.0 % 0-1 [facility] Carbon dioxide, total [Moles /volume] in Central venous bloodOrdered By: Nando Wiggins on 10-02-2024 CO2 [Moles/Vol] 26.5 mmol/L 21.0-32.0 [facility] Chloride assayOrdered By: Kathie Wiggins on 10-02-2024 Chloride [Moles/Vol] 90 mmol/L Low 98-108 [facility] Eosinophil percentageOrdered By: fili Wiggins on 10-02-2024 Eosinophils/100 WBC (Bld) 2.5 % 0-5 [facility] Erythrocyte distribution wid th ratioOrdered By: Nando Wiggins on 10-02-2024 Erythrocyte distribution width (RBC) [Ratio] 16.2 % High 11.6-14.6 [facility] Erythrocyte distribution wid th standard deviationOrdered By: Nando Wiggins on 10-02-2024 Erythrocyte distribution width (RBC) [Ratio] 54.6 fl High 35.1-43.9 [facility] Glomerular filtration rate ( GFR) estimation/1.73 sq m using serum, plasma, or whole bOrdered By: Nando Wiggins on 10-02-2024 GFR/1.73 sq M.predicted among non-blacks MDRD (S/P/Bld) [Vol rate/Area] 10 mL/min/{1.73_m2} Low >60 [facility] Hematocrit Auto (Bld) [Volum e fraction]Ordered By: Nando Wiggins on 10-02-2024 Hematocrit (Bld) [Volume fraction] 35.1 % Low 40-54 [facility] Hemoglobin measurementOrdere d By: Nando Wiggins 10-02-2024 Hemoglobin (Bld) [Mass/Vol] 10.5 g/dL Low 13.0-16.5 [facility] Immature granulocytes/100 WB C Auto (Bld)Ordered By: Kathiebiancalilian Meeklakshminereida on 10-02-2024 Immature granulocytes/100 WBC (Bld) 0.300 % 0.0-0.9 [facility] MCV (mean corpuscular volume ) determinationOrdered By: Kathiefili Wiggins on 10-02-2024 MCV (RBC) [Entitic vol] 91.4 fL 80-94 [facility] Mean corpuscular hemoglobin (MCH) determinationOrdered By: Kathiefili Edenlakshminereida on 10-02-2024 MCH (RBC) [Entitic mass] 27.3 pg 27.0-32.0 [facility] Monocyte percentageOrdered B y: Brianwolf Edenlakshminereida on 10-02-2024 Monocytes/100 WBC (Bld) 10.5 % High 0-10 [facility] Neutrophil percentageOrdered By: Debsalinaswolf Edenlakshminereida on 10-02-2024 Neutrophils/100 WBC (Bld) 60.1 % 47-70 [facility] Platelet countOrdered By: Kathie fili Meeklakshminereida on 10-02-2024 Platelets (Bld) [#/Vol] 158 10*3/uL 150-450 [facility] Potassium measurement (mass/ volume)Ordered By: Nando Wiggins on 10-02-2024 Potassium (Unsp spec) [Mass/Vol] 4.3 mmol/L 3.3-5.1 [facility] RBC Auto (Bld) [#/Vol]Ordere d By: Debsrinathwolf Edenlakshminereida on 10-02-2024 RBC (Bld) [#/Vol] 3.84 10*6/uL Low 4.6-6.2 [facility] Serum creatinine measurement (mass/volume)Ordered By: Nando Wiggins on 10-02-2024 Creatinine [Mass/Vol] 5.22 mg/dL High 0.70-1.20 [facility] Serum glucose measurement (m ass/volume)Ordered By: Nando Wiggins on 10-02-2024 Glucose [Mass/Vol] 346 mg/dL High 70-99 [facility] Serum or plasma calcium lilli urement (mass/volume)Ordered By: Nando Wiggins on 10-02-2024 Calcium [Mass/Vol] 9.0 mg/dL 7.6-11.0 [facility] Serum or plasma urea nitroge n measurement (mass/volume)Ordered By: Kathiebiancasrinathwolf Edenlakshminereida on 10-02-2024 Urea nitrogen [Mass/Vol] 91 mg/dL High 4-19 [facility] Sodium levelOrdered By: Deb quintana Meeklakshminereida on 10-02-2024 Sodium [Moles/Vol] 131 mmol/L Low 133-145 [facility] White blood cell (WBC) count Ordered By: Debsrinathwolf Edenlakshminereida on 10-02-2024 WBC (Bld) [#/Vol] 6.9 10*3/uL 4.4-11.0 [facility] Absolute lymphocyte countOrd ered By: Debsrinathwolf Edenlakshminereida on 09-24-2024 Lymphocytes Auto (Unsp spec) [#/Vol] 1.75 10*3/uL 0.83-4.51 [facility] Anion gap in Serum or Plasma Ordered By: Nando Wiggins on 09-24-2024 Anion gap [Moles/Vol] 14 mmol/L 5-15 [facility] Automated lymphocyte count a s percentage of total leukocytesOrdered By: Debsrinathwolf Edenlakshminereida on 09-24-2024 Lymphocytes/100 WBC Auto (Unsp spec) 25.8 % 19-41 [facility] BUN/creatinine ratioOrdered By: Nando Wiggins on 09-24-2024 Urea nitrogen/Creatinine [Mass ratio] 12.6 mg/mg 10-20 [facility] Basophil percentageOrdered B y: Debsrinathwolf Edenlakshminereida on 09-24-2024 Basophils/100 WBC (Bld) 0.7 % 0-1 [facility] Carbon dioxide, total [Moles /volume] in Central venous bloodOrdered By: Kathiebiancasrinathwolf Edenlakshminereida on 09-24-2024 CO2 [Moles/Vol] 26.2 mmol/L 21.0-32.0 [facility] Chloride assayOrdered By: Kathie biancalilian Wiggins on 09-24-2024 Chloride [Moles/Vol] 93 mmol/L Low 98-108 [facility] Eosinophil percentageOrdered By: Nando Wiggins on 09-24-2024 Eosinophils/100 WBC (Bld) 2.7 % 0-5 [facility] Erythrocyte distribution wid th ratioOrdered By: fili Wiggins on 09-24-2024 Erythrocyte distribution width (RBC) [Ratio] 17.2 % High 11.6-14.6 [facility] Erythrocyte distribution wid th standard deviationOrdered By: Nando Wiggins on 09-24-2024 Erythrocyte distribution width (RBC) [Ratio] 58.0 fl High 35.1-43.9 [facility] Glomerular filtration rate ( GFR) estimation/1.73 sq m using serum, plasma, or whole bOrdered By: Nando Wiggins on 09-24-2024 GFR/1.73 sq M.predicted among non-blacks MDRD (S/P/Bld) [Vol rate/Area] 13 mL/min/{1.73_m2} Low >60 [facility] Hematocrit Auto (Bld) [Volum e fraction]Ordered By: Nando Wiggins on 09-24-2024 Hematocrit (Bld) [Volume fraction] 34.6 % Low 40-54 [facility] Hemoglobin measurementOrdere d By: Nando Wiggins on 09-24-2024 Hemoglobin (Bld) [Mass/Vol] 10.3 g/dL Low 13.0-16.5 [facility] Immature granulocytes/100 WB C Auto (Bld)Ordered By: Nando Wiggins on 09-24-2024 Immature granulocytes/100 WBC (Bld) 0.400 % 0.0-0.9 [facility] MCV (mean corpuscular volume ) determinationOrdered By: Nando Wiggins on 09-24-2024 MCV (RBC) [Entitic vol] 90.8 fL 80-94 [facility] Mean corpuscular hemoglobin (MCH) determinationOrdered By: Nando Wiggins on 09-24-2024 MCH (RBC) [Entitic mass] 27.0 pg 27.0-32.0 [facility] Monocyte percentageOrdered B y: Nando Wiggins on 09-24-2024 Monocytes/100 WBC (Bld) 11.8 % High 0-10 [facility] Neutrophil percentageOrdered By: Nando Meeklakshminereida on 09-24-2024 Neutrophils/100 WBC (Bld) 58.6 % 47-70 [facility] Platelet countOrdered By: Kathie fili Meeklakshminereida on 09-24-2024 Platelets (Bld) [#/Vol] 209 10*3/uL 150-450 [facility] Potassium measurement (mass/ volume)Ordered By: Nando Wiggins on 09-24-2024 Potassium (Unsp spec) [Mass/Vol] 3.4 mmol/L 3.3-5.1 [facility] RBC Auto (Bld) [#/Vol]Ordere d By: Kathiebiancasrinathwolf Wiggins on 09-24-2024 RBC (Bld) [#/Vol] 3.81 10*6/uL Low 4.6-6.2 [facility] Serum creatinine measurement (mass/volume)Ordered By: Debsrinathwolf Wiggins on 09-24-2024 Creatinine [Mass/Vol] 4.34 mg/dL High 0.70-1.20 [facility] Serum glucose measurement (m ass/volume)Ordered By: Kathiebiancasrinathwolf Wiggins on 09-24-2024 Glucose [Mass/Vol] 241 mg/dL High 70-99 [facility] Serum or plasma calcium lilli urement (mass/volume)Ordered By: Kathiebiancasrinathwolf Wiggins 09-24-2024 Calcium [Mass/Vol] 9.0 mg/dL 7.6-11.0 [facility] Serum or plasma urea nitroge n measurement (mass/volume)Ordered By: Nando Wiggins on 09-24-2024 Urea nitrogen [Mass/Vol] 55 mg/dL High 4-19 [facility] Sodium levelOrdered By: Kathiebianca lilian Meeklakshminereida on 09-24-2024 Sodium [Moles/Vol] 134 mmol/L 133-145 [facility] White blood cell (WBC) count Ordered By: Nando Wiggins 09-24-2024 WBC (Bld) [#/Vol] 6.8 10*3/uL 4.4-11.0 [facility] Absolute lymphocyte countOrd ered By: Nando Edenlakshminereida on 09-17-2024 Lymphocytes Auto (Unsp spec) [#/Vol] 1.93 10*3/uL 0.83-4.51 [facility] Anion gap in Serum or Plasma Ordered By: Nando Wiggins on 09-17-2024 Anion gap [Moles/Vol] 13 mmol/L 5-15 [facility] Automated lymphocyte count a s percentage of total leukocytesOrdered By: Nadno Wiggins on 09-17-2024 Lymphocytes/100 WBC Auto (Unsp spec) 18.7 % Low 19-41 [facility] BUN/creatinine ratioOrdered By: Nando Wiggins on 09-17-2024 Urea nitrogen/Creatinine [Mass ratio] 12.3 mg/mg 10-20 [facility] Basophil percentageOrdered B y: Nando Wiggins on 09-17-2024 Basophils/100 WBC (Bld) 0.7 % 0-1 [facility] Carbon dioxide, total [Moles /volume] in Central venous bloodOrdered By: Nando Wiggins on 09-17-2024 CO2 [Moles/Vol] 27.5 mmol/L 21.0-32.0 [facility] Chloride assayOrdered By: Kathie Wiggins on 09-17-2024 Chloride [Moles/Vol] 93 mmol/L Low 98-108 [facility] Eosinophil percentageOrdered By: Nando Wiggins on 09-17-2024 Eosinophils/100 WBC (Bld) 2.3 % 0-5 [facility] Erythrocyte distribution wid th ratioOrdered By: Nando Wiggins on 09-17-2024 Erythrocyte distribution width (RBC) [Ratio] 17.6 % High 11.6-14.6 [facility] Erythrocyte distribution wid th standard deviationOrdered By: fili Wiggins on 09-17-2024 Erythrocyte distribution width (RBC) [Ratio] 59.3 fl High 35.1-43.9 [facility] Glomerular filtration rate ( GFR) estimation/1.73 sq m using serum, plasma, or whole bOrdered By: Nando Wiggins on 09-17-2024 GFR/1.73 sq M.predicted among non-blacks MDRD (S/P/Bld) [Vol rate/Area] 13 mL/min/{1.73_m2} Low >60 [facility] Hematocrit Auto (Bld) [Volum e fraction]Ordered By: Nando Wiggins on 09-17-2024 Hematocrit (Bld) [Volume fraction] 32.9 % Low 40-54 [facility] Hemoglobin measurementOrdere d By: Nando Wiggins on 09-17-2024 Hemoglobin (Bld) [Mass/Vol] 9.7 g/dL Low 13.0-16.5 [facility] Immature granulocytes/100 WB C Auto (Bld)Ordered By: Nando Wiggins on 09-17-2024 Immature granulocytes/100 WBC (Bld) 0.400 % 0.0-0.9 [facility] MCV (mean corpuscular volume ) determinationOrdered By: Nando Wiggins on 09-17-2024 MCV (RBC) [Entitic vol] 91.9 fL 80-94 [facility] Mean corpuscular hemoglobin (MCH) determinationOrdered By: Nando Wiggins on 09-17-2024 MCH (RBC) [Entitic mass] 27.1 pg 27.0-32.0 [facility] Monocyte percentageOrdered B y: Nando Wiggins on 09-17-2024 Monocytes/100 WBC (Bld) 10.2 % High 0-10 [facility] Neutrophil percentageOrdered By: biancasalinaswolf Wiggins on 09-17-2024 Neutrophils/100 WBC (Bld) 67.7 % 47-70 [facility] Platelet countOrdered By: Kathie biancalilian Wiggins on 09-17-2024 Platelets (Bld) [#/Vol] 275 10*3/uL 150-450 [facility] Potassium measurement (mass/ volume)Ordered By: Nando Wiggins on 09-17-2024 Potassium (Unsp spec) [Mass/Vol] 3.3 mmol/L 3.3-5.1 [facility] RBC Auto (Bld) [#/Vol]Ordere d By: Nando Wiggins on 09-17-2024 RBC (Bld) [#/Vol] 3.58 10*6/uL Low 4.6-6.2 [facility] Serum creatinine measurement (mass/volume)Ordered By: Nando Wiggins on 09-17-2024 Creatinine [Mass/Vol] 4.25 mg/dL High 0.70-1.20 [facility] Serum glucose measurement (m ass/volume)Ordered By: Nando Wiggins on 09-17-2024 Glucose [Mass/Vol] 151 mg/dL High 70-99 [facility] Serum or plasma calcium lilli urement (mass/volume)Ordered By: Nando Wiggins on 09-17-2024 Calcium [Mass/Vol] 8.7 mg/dL 7.6-11.0 [facility] Serum or plasma urea nitroge n measurement (mass/volume)Ordered By: Nando Wiggins on 09-17-2024 Urea nitrogen [Mass/Vol] 52 mg/dL High 4-19 [facility] Sodium levelOrdered By: Deb Wiggins on 09-17-2024 Sodium [Moles/Vol] 134 mmol/L 133-145 [facility] White blood cell (WBC) count Ordered By: Nando Wiggins on 09-17-2024 WBC (Bld) [#/Vol] 10.3 10*3/uL 4.4-11.0 [facility] Bilirubin directOrdered By: Nando Wiggins on 09-12-2024 Bilirubin.direct [Mass/Vol] 0.11 mg/dL 0.00-0.30 [facility] Bilirubin, totalOrdered By: Nando Wiggins on 09-12-2024 Bilirubin [Mass/Vol] 0.25 mg/dL 0.00-1.30 [facility] Hemoglobin A1c percentageOrd ered By: Nando Wiggins on 09-12-2024 HbA1c (Bld) [Mass fraction] 6.1 % High <5.7 [facility] No Panel InformationOrdered By: Nando Wiggins on 09-12-2024 16 U/L <38 [facility] Serum globulin measurementOr dered By: Nando Wiggins on 09-12-2024 Globulin (S) [Mass/Vol] 3.3 g/dL 2.2-4.2 [facility] Serum or plasma alanine hawkins otransferase (ALT) measurementOrdered By: Nando Wiggins on 09-12-2024 ALT [Catalytic activity/Vol] U/L <47 [facility] Serum or plasma albumin lilli urement (mass/volume)Ordered By: Nando Wiggins on 09-12-2024 Albumin [Mass/Vol] 2.8 g/dL Low 3.4-4.8 [facility] Serum or plasma alkaline penelope sphatase measurementOrdered By: Nando Wiggins on 09-12-2024 ALP [Catalytic activity/Vol] 55 U/L 40-129 [facility] Total proteinOrdered By: Sinan Wiggins on 09-12-2024 Protein [Mass/Vol] 6.0 g/dL 5.9-8.4 [facility] Vitamin B12 ser/plasOrdered By: Nando Wiggins on 09-12-2024 Cobalamin (Vitamin B12) [Mass/Vol] 717 pg/mL 180-914 [facility] Absolute lymphocyte countOrd ered By: Nando Wiggins on 09-10-2024 Lymphocytes Auto (Unsp spec) [#/Vol] 1.78 10*3/uL 0.83-4.51 [facility] Anion gap in Serum or Plasma Ordered By: Nadno Wiggins on 09-10-2024 Anion gap [Moles/Vol] 12 mmol/L 5-15 [facility] Automated lymphocyte count a s percentage of total leukocytesOrdered By: Nando Wiggins on 09-10-2024 Lymphocytes/100 WBC Auto (Unsp spec) 21.1 % 19-41 [facility] BUN/creatinine ratioOrdered By: Nando Wiggins on 09-10-2024 Urea nitrogen/Creatinine [Mass ratio] 11.1 mg/mg 10-20 [facility] Basophil percentageOrdered B y: Nando Wiggins on 09-10-2024 Basophils/100 WBC (Bld) 0.7 % 0-1 [facility] Carbon dioxide, total [Moles /volume] in Central venous bloodOrdered By: Nando Wiggins on 09-10-2024 CO2 [Moles/Vol] 27.1 mmol/L 21.0-32.0 [facility] Chloride assayOrdered By: Kathie Wiggins on 09-10-2024 Chloride [Moles/Vol] 94 mmol/L Low 98-108 [facility] Eosinophil percentageOrdered By: Nando Wiggins on 09-10-2024 Eosinophils/100 WBC (Bld) 1.8 % 0-5 [facility] Erythrocyte distribution wid th ratioOrdered By: Nando Wiggins on 09-10-2024 Erythrocyte distribution width (RBC) [Ratio] 17.3 % High 11.6-14.6 [facility] Erythrocyte distribution wid th standard deviationOrdered By: Nando Wiggins on 09-10-2024 Erythrocyte distribution width (RBC) [Ratio] 56.1 fl High 35.1-43.9 [facility] Glomerular filtration rate ( GFR) estimation/1.73 sq m using serum, plasma, or whole bOrdered By: Nando Wiggins on 09-10-2024 GFR/1.73 sq M.predicted among non-blacks MDRD (S/P/Bld) [Vol rate/Area] 14 mL/min/{1.73_m2} Low >60 [facility] Hematocrit Auto (Bld) [Volum e fraction]Ordered By: Nando Wiggins on 09-10-2024 Hematocrit (Bld) [Volume fraction] 29.7 % Low 40-54 [facility] Hemoglobin measurementOrdere d By: Nando Wiggins on 09-10-2024 Hemoglobin (Bld) [Mass/Vol] 9.1 g/dL Low 13.0-16.5 [facility] Immature granulocytes/100 WB C Auto (Bld)Ordered By: Nando Wiggins on 09-10-2024 Immature granulocytes/100 WBC (Bld) 1.200 % High 0.0-0.9 [facility] MCV (mean corpuscular volume ) determinationOrdered By: Nando Wiggins on 09-10-2024 MCV (RBC) [Entitic vol] 88.9 fL 80-94 [facility] Mean corpuscular hemoglobin (MCH) determinationOrdered By: Kathiefili Edenlakshminereida on 09-10-2024 MCH (RBC) [Entitic mass] 27.2 pg 27.0-32.0 [facility] Monocyte percentageOrdered B y: Nando Wiggins on 09-10-2024 Monocytes/100 WBC (Bld) 11.2 % High 0-10 [facility] Neutrophil percentageOrdered By: Kathiefili Wiggins on 09-10-2024 Neutrophils/100 WBC (Bld) 64.0 % 47-70 [facility] Platelet countOrdered By: Kathie biancalilian Wiggins on 09-10-2024 Platelets (Bld) [#/Vol] 305 10*3/uL 150-450 [facility] Potassium measurement (mass/ volume)Ordered By: Nando Wiggins on 09-10-2024 Potassium (Unsp spec) [Mass/Vol] 3.9 mmol/L 3.3-5.1 [facility] RBC Auto (Bld) [#/Vol]Ordere d By: Deblilian Rosalie on 09-10-2024 RBC (Bld) [#/Vol] 3.34 10*6/uL Low 4.6-6.2 [facility] Serum creatinine measurement (mass/volume)Ordered By: Nando Wiggins on 09-10-2024 Creatinine [Mass/Vol] 3.98 mg/dL High 0.70-1.20 [facility] Serum glucose measurement (m ass/volume)Ordered By: Nando Wiggins on 09-10-2024 Glucose [Mass/Vol] 117 mg/dL High 70-99 [facility] Serum or plasma calcium lilli urement (mass/volume)Ordered By: Nando Wiggins on 09-10-2024 Calcium [Mass/Vol] 8.9 mg/dL 7.6-11.0 [facility] Serum or plasma urea nitroge n measurement (mass/volume)Ordered By: Nando Wiggins on 09-10-2024 Urea nitrogen [Mass/Vol] 44 mg/dL High 4-19 [facility] Sodium levelOrdered By: Deb Wiggins on 09-10-2024 Sodium [Moles/Vol] 133 mmol/L 133-145 [facility] White blood cell (WBC) count Ordered By: Nando Wiggins on 09-10-2024 WBC (Bld) [#/Vol] 8.5 10*3/uL 4.4-11.0 [facility] Bedside Glucoseon 09-04-2024 FINGERSTICK GLU 214 mg/dL High 74-106 [facility] Comment on above: Result Comment: FANG GEMENT OF PATIENT CARE PER NURSING PROTOCOL Performed By: #### L 501.080 ####[facility] [id number] [place], [place], [phone]) FINGERSTICK GLU 151 mg/dL High 74-106 [facility] Comment on above: Result Comment: FANG GEMENT OF PATIENT CARE PER NURSING PROTOCOL Performed By: #### L 501.080 ####[facility] [id number] [place], [address] Gl[facility] at [facility] deOrdered By: Earl White on 09-04-2024 Glucose [Mass/Vol] 214 mg/dL High 74-106 [facility] Absolute lymphocyte countOrd ered By: Salma Cervantes on 09-03-2024 Lymphocytes Auto (Unsp spec) [#/Vol] 1.48 10*3/uL 0.83-4.51 [facility] Automated lymphocyte count a s percentage of total leukocytesOrdered By: Salma Cervantes on 09-03-2024 Lymphocytes/100 WBC Auto (Unsp spec) 19.3 % 19-41 [facility] Basophil percentageOrdered B y: Salma Cervantes on 09-03-2024 Basophils/100 WBC (Bld) 0.5 % 0-1 [facility] Bedside Glucoseon 09-03-2024 FINGERSTICK GLU 219 mg/dL High 74-106 [facility] Comment on above: Result Comment: FANG GEMENT OF PATIENT CARE PER NURSING PROTOCOL Performed By: #### L 501.080 ####[facility] [id number] [place], [address] FINGERSTICK GLU 212 mg/dL High 74-106 [facility] Comment on above: Result Comment: FANG GEMENT OF PATIENT CARE PER NURSING PROTOCOL Performed By: #### L 501.080 ####[facility] [id number] [place], [address] FINGERSTICK GLU 172 mg/dL High 74-106 [facility] Comment on above: Result Comment: FANG GEMENT OF PATIENT CARE PER NURSING PROTOCOL Performed By: #### L 501.080 ####[facility] [address] [place], [address] FINGERSTICK GLU 175 mg/dL High 74-106 [facility] Comment on above: Result Comment: FANG GEMENT OF PATIENT CARE PER NURSING PROTOCOL Performed By: #### L 501.080 ####[facility] [address] [place], [address] CBC W/Diff, Automatedon 04-05 26-2024 Absolute Lymph 1.48 X10 3/uL Normal 0.83-4.51 [facility] Comment on above: Performed By: #### L 100.0100 ####[facility] [address] [place], [address] Absolute Neut 5.2 X10 3/uL Normal 2.0-7.7 [facility] Comment on above: Performed By: #### L 100.0100 ####[facility] [address] [place], [address] Basophils/100 WBC (Bld) 0.5 % Normal 0-1 [facility] Comment on above: Performed By: #### L 100.0100 ####[facility] [address] [place], [address] Eosinophils/100 WBC (Bld) 2.7 % Normal 0-5 [facility] Comment on above: Performed By: #### L 100.0100 ####[facility] [address] [place], [address] Erythrocyte distribution width (RBC) [Ratio] 16.3 % High 11.6-14.6 [facility] Comment on above: Performed By: #### L 100.0100 ####[facility] [address] [place], [address] Hematocrit (Bld) [Volume fraction] 24.8 % Low 40-54 [facility] Comment on above: Performed By: #### L 100.0100 ####[facility] [address] [place], [address] Hemoglobin (Bld) [Mass/Vol] 7.4 g/dL Low 13.0-16.5 [facility] Comment on above: Performed By: #### L 100.0100 ####[facility] [address] [place], [address] IG% 0.500 Normal 0.0-0.9 [facility] Comment on above: Result Comment: IG% - Immature Granulocytes (promyelocytes, myelocytes andmetamyelocytes) > 1% indicates that a LEFT SHIFT is Present. Performed By: #### L 100.0100 ####[facility] [address] [place], [address] Lymphocytes/100 WBC (Bld) 19.3 % Normal 19-41 [facility] Comment on above: Performed By: #### L 100.0100 ####[facility] [address] [place], [address] MCH (RBC) [Entitic mass] 26.6 pg Low 27.0-32.0 [facility] Comment on above: Performed By: #### L 100.0100 ####[facility] [address] [place], [address] MCHC (RBC) [Mass/Vol] 29.8 g/dL Low 32-36 [facility] Comment on above: Performed By: #### L 100.0100 ####[facility] [address] [place], [address] MCV (RBC) [Entitic vol] 89.2 fL Normal 80-94 [facility] Comment on above: Performed By: #### L 100.0100 ####[facility] [address] [place], [address] Monocytes/100 WBC (Bld) 9.7 % Normal 0-10 [facility] Comment on above: Performed By: #### L 100.0100 ####[facility] [address] [place], [address] Neutrophils/100 WBC (Bld) 67.3 % Normal 47-70 [facility] Comment on above: Performed By: #### L 100.0100 ####[facility] [address] [place], [address] Nucleated RBC (Bld) [#/Vol] 0 10*3/uL Normal 0-5 [facility] Comment on above: Performed By: #### L 100.0100 ####[facility] [address] [place], [address] Platelet mean volume (Bld) [Entitic vol] 10.9 fL Normal 6.2-12.0 [facility] Comment on above: Performed By: #### L 100.0100 ####[facility] [address] [place], [address] Platelets (Bld) [#/Vol] 305 10*3/uL Normal 150-450 [facility] Comment on above: Performed By: #### L 100.0100 ####[facility] [address] [place], [address] RBC (Bld) [#/Vol] 2.78 10*6/uL Low 4.6-6.2 [facility] Comment on above: Performed By: #### L 100.0100 ####[facility] [address] [place], [address] RDW SD 53.4 fl High 35.1-43.9 [facility] Comment on above: Performed By: #### L 100.0100 ####[facility] [address] [place], [address] WBC (Bld) [#/Vol] 7.7 10*3/uL Normal 4.4-11.0 [facility] Comment on above: Performed By: #### L 100.0100 ####[facility] [address] [place], [address] Eosinophil percentageOrdered By: Salma Cervantes on 09-03-2024 Eosinophils/100 WBC (Bld) 2.7 % 0-5 [facility] Erythrocyte distribution wid th ratioOrdered By: Salma Cervantes on 09-03-2024 Erythrocyte distribution width (RBC) [Ratio] 16.3 % High 11.6-14.6 [facility] Erythrocyte distribution wid th standard deviationOrdered By: Salma Cervantes on 09-03-2024 Erythrocyte distribution width (RBC) [Ratio] 53.4 fl High 35.1-43.9 [facility] Hematocrit Auto (Bld) [Volum e fraction]Ordered By: Salma Cervantes on 09-03-2024 Hematocrit (Bld) [Volume fraction] 24.8 % Low 40-54 [facility] Hemoglobin measurementOrdere d By: Salma Cervantes on 09-03-2024 Hemoglobin (Bld) [Mass/Vol] 7.4 g/dL Low 13.0-16.5 [facility] Immature granulocytes/100 WB C Auto (Bld)Ordered By: Salma Cervantes on 09-03-2024 Immature granulocytes/100 WBC (Bld) 0.500 % 0.0-0.9 [facility] MCV (mean corpuscular volume ) determinationOrdered By: Salma Cervantes on 09-03-2024 MCV (RBC) [Entitic vol] 89.2 fL 80-94 [facility] Mean corpuscular hemoglobin (MCH) determinationOrdered By: Salma Cervantes on 09-03-2024 MCH (RBC) [Entitic mass] 26.6 pg Low 27.0-32.0 [facility] Monocyte percentageOrdered B y: Salma Cervantes on 09-03-2024 Monocytes/100 WBC (Bld) 9.7 % 0-10 [facility] Neutrophil percentageOrdered By: Salma Cervantes on 09-03-2024 Neutrophils/100 WBC (Bld) 67.3 % 47-70 [facility] Platelet countOrdered By: Xavier Cervantes on 09-03-2024 Platelets (Bld) [#/Vol] 305 10*3/uL 150-450 [facility] RBC Auto (Bld) [#/Vol]Ordere d By: Salma Cervantes on 09-03-2024 RBC (Bld) [#/Vol] 2.78 10*6/uL Low 4.6-6.2 [facility] White blood cell (WBC) count Ordered By: Salma Cervantes on 09-03-2024 WBC (Bld) [#/Vol] 7.7 10*3/uL 4.4-11.0 [facility] Anion gap in Serum or Plasma Ordered By: Salma Cervantes on 09-02-2024 Anion gap [Moles/Vol] 12 mmol/L - [facility] BUN/creatinine ratioOrdered By: Salma Cervantes on 09-02-2024 Urea nitrogen/Creatinine [Mass ratio] 13.7 mg/mg - [facility] Basic Metabolic Profile (BMP )on 09-02-2024 BUN/CRE 13.7 RATIO Normal - [facility] Comment on above: Performed By: #### L 500.2500 ####[facility] [address] [place], [address] Calcium [Mass/Vol] 8.7 mg/dL Normal 7.6-11.0 [facility] Comment on above: Performed By: #### L 500.2500 ####[facility] [address] [place], [address] Chloride [Moles/Vol] 96 mmol/L Low 98-108 [facility] Comment on above: Performed By: #### L 500.2500 ####[facility] [address] [place], [address] CO2 [Moles/Vol] 23.2 mmol/L Normal 21.0-32.0 [facility] Comment on above: Performed By: #### L 500.2500 ####[facility] [address] [place], [address] Creatinine [Mass/Vol] 4.19 mg/dL High 0.70-1.20 [facility] Comment on above: Performed By: #### L 500.2500 ####[facility] [address] [place], [address] ECRCL 13.21 ml/min Low 50-250 [facility] Comment on above: Performed By: #### L 500.2500 ####[facility] [address] [place], [address] GAP 12 Normal 5-15 [facility] Comment on above: Performed By: #### L 500.2500 ####[facility] [address] [place], [address] GFR/1.73 sq M.predicted among non-blacks MDRD (S/P/Bld) [Vol rate/Area] 13 mL/min/{1.73_m2} Low >60 [facility] Comment on above: Result Comment: mL/m in/1.73m2 CKD-EPI Creatinine Equation (2020) Performed By: #### L 500.2500 ####[facility] [address] [place], [address] Glucose [Mass/Vol] 186 mg/dL High 70-99 [facility] Comment on above: Performed By: #### L 500.2500 ####[facility] [address] [place], [address] Potassium [Moles/Vol] 4.8 mmol/L Normal 3.3-5.1 [facility] Comment on above: Performed By: #### L 500.2500 ####[facility] [address] [place], [address] Sodium [Moles/Vol] 131 mmol/L Low 133-145 [facility] Comment on above: Performed By: #### L 500.2500 ####[facility] [address] [place], [address] Urea nitrogen [Mass/Vol] 57 mg/dL High 4-19 [facility] Comment on above: Performed By: #### L 500.2500 ####[facility] [address] [place], [address] Bedside Glucoseon 09-02-2024 FINGERSTICK GLU 212 mg/dL High 74-106 [facility] Comment on above: Result Comment: FANG GEMENT OF PATIENT CARE PER NURSING PROTOCOL Performed By: #### L 501.080 ####[facility] [address] [place], [address] FINGERSTICK GLU 183 mg/dL High 74-106 [facility] Comment on above: Result Comment: FANG GEMENT OF PATIENT CARE PER NURSING PROTOCOL Performed By: #### L 501.080 ####[facility] [address] [place], [address] FINGERSTICK GLU 219 mg/dL High 74-106 [facility] Comment on above: Result Comment: FANG GEMENT OF PATIENT CARE PER NURSING PROTOCOL Performed By: #### L 501.080 ####[facility] [address] [place], [address] FINGERSTICK GLU 177 mg/dL High 74-106 [facility] Comment on above: Result Comment: FANG GEMENT OF PATIENT CARE PER NURSING PROTOCOL Performed By: #### L 501.080 ####[facility] [address] [place], [address] CBC W/Diff, Automatedon 04-05 25-2024 Absolute Lymph 1.42 X10 3/uL Normal 0.83-4.51 [facility] Comment on above: Performed By: #### L 100.0100 ####[facility] [address] [place], [address] Absolute Neut 4.8 X10 3/uL Normal 2.0-7.7 [facility] Comment on above: Performed By: #### L 100.0100 ####[facility] [address] [place], [address] Basophils/100 WBC (Bld) 0.4 % Normal 0-1 [facility] Comment on above: Performed By: #### L 100.0100 ####[facility] [address] [place], [address] Eosinophils/100 WBC (Bld) 3.2 % Normal 0-5 [facility] Comment on above: Performed By: #### L 100.0100 ####[facility] [address] [place], [address] Erythrocyte distribution width (RBC) [Ratio] 16.0 % High 11.6-14.6 [facility] Comment on above: Performed By: #### L 100.0100 ####[facility] [address] [place], [address] Hematocrit (Bld) [Volume fraction] 25.8 % Low 40-54 [facility] Comment on above: Performed By: #### L 100.0100 ####[facility] [address] [place], [address] Hemoglobin (Bld) [Mass/Vol] 7.8 g/dL Low 13.0-16.5 [facility] Comment on above: Performed By: #### L 100.0100 ####[facility] [address] [place], [address] IG% 0.400 Normal 0.0-0.9 [facility] Comment on above: Result Comment: IG% - Immature Granulocytes (promyelocytes, myelocytes andmetamyelocytes) > 1% indicates that a LEFT SHIFT is Present. Performed By: #### L 100.0100 ####[facility] [address] [place], [address] Lymphocytes/100 WBC (Bld) 19.9 % Normal 19-41 [facility] Comment on above: Performed By: #### L 100.0100 ####[facility] [address] [place], [address] MCH (RBC) [Entitic mass] 27.2 pg Normal 27.0-32.0 [facility] Comment on above: Performed By: #### L 100.0100 ####[facility] [address] [place], [address] MCHC (RBC) [Mass/Vol] 30.2 g/dL Low 32-36 [facility] Comment on above: Performed By: #### L 100.0100 ####[facility] [address] [place], [address] MCV (RBC) [Entitic vol] 89.9 fL Normal 80-94 [facility] Comment on above: Performed By: #### L 100.0100 ####[facility] [address] [place], [address] Monocytes/100 WBC (Bld) 9.1 % Normal 0-10 [facility] Comment on above: Performed By: #### L 100.0100 ####[facility] [address] [place], [address] Neutrophils/100 WBC (Bld) 67.0 % Normal 47-70 [facility] Comment on above: Performed By: #### L 100.0100 ####[facility] [address] [place], [address] Nucleated RBC (Bld) [#/Vol] 0 10*3/uL Normal 0-5 [facility] Comment on above: Performed By: #### L 100.0100 ####[facility] [address] [place], [address] Platelet mean volume (Bld) [Entitic vol] 10.6 fL Normal 6.2-12.0 [facility] Comment on above: Performed By: #### L 100.0100 ####[facility] [address] [place], [address] Platelets (Bld) [#/Vol] 284 10*3/uL Normal 150-450 [facility] Comment on above: Performed By: #### L 100.0100 ####[facility] [address] [place], [address] RBC (Bld) [#/Vol] 2.87 10*6/uL Low 4.6-6.2 [facility] Comment on above: Performed By: #### L 100.0100 ####[facility] [address] [place], [address] RDW SD 52.3 fl High 35.1-43.9 [facility] Comment on above: Performed By: #### L 100.0100 ####[facility] [address] [place], [address] WBC (Bld) [#/Vol] 7.2 10*3/uL Normal 4.4-11.0 [facility] Comment on above: Performed By: #### L 100.0100 ####[facility] [address] [place], [address] Carbon dioxide, total [Moles /volume] in Central venous bloodOrdered By: Salma Cervantes on 09-02-2024 CO2 [Moles/Vol] 23.2 mmol/L 21.0-32.0 [facility] Chloride assayOrdered By: Xavier Cervantes on 09-02-2024 Chloride [Moles/Vol] 96 mmol/L Low 98-108 [facility] Glomerular filtration rate ( GFR) estimation/1.73 sq m using serum, plasma, or whole bOrdered By: Salma Cervantes on 09-02-2024 GFR/1.73 sq M.predicted among non-blacks MDRD (S/P/Bld) [Vol rate/Area] 13 mL/min/{1.73_m2} Low >60 [facility] Potassium measurement (mass/ volume)Ordered By: Salma Cervantes on 09-02-2024 Potassium (Unsp spec) [Mass/Vol] 4.8 mmol/L 3.3-5.1 [facility] Serum creatinine measurement (mass/volume)Ordered By: Salma Cervantes on 09-02-2024 Creatinine [Mass/Vol] 4.19 mg/dL High 0.70-1.20 [facility] Serum glucose measurement (m ass/volume)Ordered By: Salma Cervantes on 09-02-2024 Glucose [Mass/Vol] 186 mg/dL High 70-99 [facility] Serum or plasma calcium lilli urement (mass/volume)Ordered By: Salma Cervantes on 09-02-2024 Calcium [Mass/Vol] 8.7 mg/dL 7.6-11.0 [facility] Serum or plasma urea nitroge n measurement (mass/volume)Ordered By: Salma Cervantes on 09-02-2024 Urea nitrogen [Mass/Vol] 57 mg/dL High 4-19 [facility] Sodium levelOrdered By: Juan Cervantes on 09-02-2024 Sodium [Moles/Vol] 131 mmol/L Low 133-145 [facility] Bedside Glucoseon 09-01-2024 FINGERSTICK GLU 183 mg/dL High 74-106 [facility] Comment on above: Result Comment: FANG VAZQUEZ OF PATIENT CARE PER NURSING PROTOCOL Performed By: #### L 505.08 ####[facility] [address] [facility] [address] FINGERSTICK GLU 230 mg/dL High 74-106 [facility] Comment on above: Result Comment: FANG GEMENT OF PATIENT CARE PER NURSING PROTOCOL Performed By: #### L 501.080 ####[facility] [address] [place], [address] FINGERSTICK GLU 103 mg/dL Normal 74-106 [facility] Comment on above: Result Comment: FANG GEMENT OF PATIENT CARE PER NURSING PROTOCOL Performed By: #### L 501.080 ####[facility] [address] [facility] [address] FINGERSTICK GLU 216 mg/dL High 74-106 [facility] Comment on above: Result Comment: FAGN GEMENT OF PATIENT CARE PER NURSING PROTOCOL Performed By: #### L 501.080 ####[facility] [address] [facility] [address] Serum or plasma vancomycin m easurement (mass/volume)Ordered By: Earl White on 09-01-2024 Vancomycin [Mass/Vol] 14.1 ug/mL 0.0-15.0 [facility] Vancomycin, Random Levelon 0 09-01-2024 VANCO, RANDOM 14.1 ug/mL Normal 0.0-15.0 [facility] Comment on above: Result Comment: VANC OMYCIN STANDARD DRUG THERAPY: CRITICAL VALUE IS > 15.0 mg/LVANCOMYCIN HIGH INTENSITY THERAPY: CRITICAL VALUE IS > 20.0 mg/LPLEASE CONTACT PHARMACY SERVICES (#7450) FOR INTERPRETATIONOF RESULTS. THIS RESULT DOES NOT REPRESENT A PEAK OR TROUGHLEVEL FOR THIS DRUG. Performed By: #### L 501.8850 ####[facility] [address] [place], [address] AV Fistula/Dialysis Graft Sc anon 08-31-2024 AV Fistula/Dialysis Graft Scan Normal [facility] Bedside Glucoseon 08-31-2024 FINGERSTICK GLU 169 mg/dL High 74-106 [facility] Comment on above: Result Comment: FANG GEMENT OF PATIENT CARE PER NURSING PROTOCOL Performed By: #### L 501.080 ####[facility] [address] [place], [address] FINGERSTICK GLU 207 mg/dL High 74-106 [facility] Comment on above: Result Comment: FANG GEMENT OF PATIENT CARE PER NURSING PROTOCOL Performed By: #### L 501.080 ####[facility] [address] [place], [address] FINGERSTICK GLU 162 mg/dL High 74-106 [facility] Comment on above: Result Comment: FANG GEMENT OF PATIENT CARE PER NURSING PROTOCOL Performed By: #### L 501.080 ####[facility] [address] [place], [address] FINGERSTICK GLU 189 mg/dL High -106 [facility] Comment on above: Result Comment: FANG GEMENT OF PATIENT CARE PER NURSING PROTOCOL Performed By: #### L 501.080 ####[facility] [address] [place], [address] CBC W/Diff, Automatedon 04- Absolute Lymph 1.13 X10 3/uL Normal 0.83-4.51 [facility] Comment on above: Performed By: #### L 100.0100 ####[facility] [address] [place], [address] Absolute Neut 5.3 X10 3/uL Normal 2.0-7.7 [facility] Comment on above: Performed By: #### L 100.0100 ####[facility] [address] [place], [address] Basophils/100 WBC (Bld) 0.6 % Normal 0-1 [facility] Comment on above: Performed By: #### L 100.0100 ####[facility] [address] [place], [address] Eosinophils/100 WBC (Bld) 3.1 % Normal 0-5 [facility] Comment on above: Performed By: #### L 100.0100 ####[facility] [address] [place], [address] Erythrocyte distribution width (RBC) [Ratio] 16.1 % High 11.6-14.6 [facility] Comment on above: Performed By: #### L 100.0100 ####[facility] [address] [place], [address] Hematocrit (Bld) [Volume fraction] 26.1 % Low 40-54 [facility] Comment on above: Performed By: #### L 100.0100 ####[facility] [address] [place], [address] Hemoglobin (Bld) [Mass/Vol] 7.7 g/dL Low 13.0-16.5 [facility] Comment on above: Performed By: #### L 100.0100 ####[facility] [address] [place], [address] IG% 0.500 Normal 0.0-0.9 [facility] Comment on above: Result Comment: IG% - Immature Granulocytes (promyelocytes, myelocytes andmetamyelocytes) > 1% indicates that a LEFT SHIFT is Present. Performed By: #### L 100.0100 ####[facility] [address] [place], [address] Lymphocytes/100 WBC (Bld) 14.5 % Low 19-41 [facility] Comment on above: Performed By: #### L 100.0100 ####[facility] [address] [place], [address] MCH (RBC) [Entitic mass] 27.0 pg Normal 27.0-32.0 [facility] Comment on above: Performed By: #### L 100.0100 ####[facility] [address] [place], [id number] MCHC (RBC) [Mass/Vol] 29.5 g/dL Low 32-36 [facility] Comment on above: Performed By: #### L 100.0100 ####[facility] [address] [place], [address] MCV (RBC) [Entitic vol] 91.6 fL Normal 80-94 [facility] Comment on above: Performed By: #### L 100.0100 ####[facility] [address] [place], [address] Monocytes/100 WBC (Bld) 12.9 % High 0-10 [facility] Comment on above: Performed By: #### L 100.0100 ####[facility] [address] [place], [address] Neutrophils/100 WBC (Bld) 68.4 % Normal 47-70 [facility] Comment on above: Performed By: #### L 100.0100 ####[facility] [address] [place], [address] Nucleated RBC (Bld) [#/Vol] 0 10*3/uL Normal 0-5 [facility] Comment on above: Performed By: #### L 100.0100 ####[facility] [address] [place], [address] Platelet mean volume (Bld) [Entitic vol] 10.5 fL Normal 6.2-12.0 [facility] Comment on above: Performed By: #### L 100.0100 ####[facility] [address] [place], [address] Platelets (Bld) [#/Vol] 234 10*3/uL Normal 150-450 [facility] Comment on above: Performed By: #### L 100.0100 ####[facility] [address] [place], [address] RBC (Bld) [#/Vol] 2.85 10*6/uL Low 4.6-6.2 [facility] Comment on above: Performed By: #### L 100.0100 ####[facility] [address] [place], [address] RDW SD 53.4 fl High 35.1-43.9 [facility] Comment on above: Performed By: #### L 100.0100 ####[facility] [address] [place], [address] WBC (Bld) [#/Vol] 7.8 10*3/uL Normal 4.4-11.0 [facility] Comment on above: Performed By: #### L 100.0100 ####[facility] [address] [place], [address] Basic Metabolic Profile (BMP )on 08-30-2024 BUN/CRE 11.0 RATIO Normal 10-20 [facility] Comment on above: Performed By: #### L 500.2500, L100.0100 ####[facility] [address] [place], [address] Calcium [Mass/Vol] 8.7 mg/dL Normal 7.6-11.0 [facility] Comment on above: Performed By: #### L 500.2500, L100.0100 ####[facility] [address] [place], [address] Chloride [Moles/Vol] 92 mmol/L Low 98-108 [facility] Comment on above: Performed By: #### L 500.2500, L100.0100 ####[facility] [address] [place], [address] CO2 [Moles/Vol] 27.5 mmol/L Normal 21.0-32.0 [facility] Comment on above: Performed By: #### L 500.2500, L100.0100 ####[facility] [address] [place], [address] Creatinine [Mass/Vol] 5.42 mg/dL High 0.70-1.20 [facility] Comment on above: Performed By: #### L 500.2500, L100.0100 ####[facility] [address] [place], [address] ECRCL 12.64 ml/min Low 50-250 [facility] Comment on above: Performed By: #### L 500.2500, L100.0100 ####[facility] [address] [place], [address] GAP 14 Normal 5-15 [facility] Comment on above: Performed By: #### L 500.2500, L100.0100 ####[facility] [address] [place], [address] GFR/1.73 sq M.predicted among non-blacks MDRD (S/P/Bld) [Vol rate/Area] 10 mL/min/{1.73_m2} Low >60 [facility] Comment on above: Result Comment: mL/m in/1.73m2 CKD-EPI Creatinine Equation (2020) Performed By: #### L 500.2500, L100.0100 ####[facility] [address] [place], [address] Glucose [Mass/Vol] 196 mg/dL High 70-99 [facility] Comment on above: Performed By: #### L 500.2500, L100.0100 ####[facility] [address] [place], [address] Potassium [Moles/Vol] 5.2 mmol/L High 3.3-5.1 [facility] Comment on above: Performed By: #### L 500.2500, L100.0100 ####[facility] [address] [place], [address] Sodium [Moles/Vol] 134 mmol/L Normal 133-145 [facility] Comment on above: Performed By: #### L 500.2500, L100.0100 ####[facility] [address] [place], [address] Urea nitrogen [Mass/Vol] 60 mg/dL High 4-19 [facility] Comment on above: Performed By: #### L 500.2500, L100.0100 ####[facility] [address] [place], [address] Bedside Glucoseon 08-30-2024 FINGERSTICK GLU 285 mg/dL High 74-106 [facility] Comment on above: Result Comment: FANG GEMENT OF PATIENT CARE PER NURSING PROTOCOL Performed By: #### L 501.080 ####[facility] [address] [place], [address] FINGERSTICK GLU 287 mg/dL High 74-106 [facility] Comment on above: Result Comment: FANG GEMENT OF PATIENT CARE PER NURSING PROTOCOL Performed By: #### L 501.080 ####[facility] [address] [place], [address] FINGERSTICK GLU 192 mg/dL High 74-106 [facility] Comment on above: Result Comment: FANG GEMENT OF PATIENT CARE PER NURSING PROTOCOL Performed By: #### L 501.080 ####[facility] [address] [place], [address] FINGERSTICK GLU 195 mg/dL High 74-106 [facility] Comment on above: Result Comment: FANG GEMENT OF PATIENT CARE PER NURSING PROTOCOL Performed By: #### L 501.080 ####[facility] [address] [place], [address] CBC W/Diff, Automatedon 08-21 Absolute Lymph 1.31 X10 3/uL Normal 0.83-4.51 [facility] Comment on above: Performed By: #### L 500.2500, L100.0100 ####[facility] [address] [place], [address] Absolute Neut 7.1 X10 3/uL Normal 2.0-7.7 [facility] Comment on above: Performed By: #### L 500.2500, L100.0100 ####[facility] [address] [place], [address] Basophils/100 WBC (Bld) 0.5 % Normal 0-1 [facility] Comment on above: Performed By: #### L 500.2500, L100.0100 ####[facility] [address] [place], [address] Eosinophils/100 WBC (Bld) 0.9 % Normal 0-5 [facility] Comment on above: Performed By: #### L 500.2500, L100.0100 ####[facility] [address] [place], [address] Erythrocyte distribution width (RBC) [Ratio] 16.3 % High 11.6-14.6 [facility] Comment on above: Performed By: #### L 500.2500, L100.0100 ####[facility] [address] [place], [address] Hematocrit (Bld) [Volume fraction] 26.9 % Low 40-54 [facility] Comment on above: Performed By: #### L 500.2500, L100.0100 ####[facility] [address] [place], [address] Hemoglobin (Bld) [Mass/Vol] 7.9 g/dL Low 13.0-16.5 [facility] Comment on above: Performed By: #### L 500.2500, L100.0100 ####[facility] [address] [place], [address] IG% 0.600 Normal 0.0-0.9 [facility] Comment on above: Result Comment: IG% - Immature Granulocytes (promyelocytes, myelocytes andmetamyelocytes) > 1% indicates that a LEFT SHIFT is Present. Performed By: #### L 500.2500, L100.0100 ####[facility] [address] [place], [address] Lymphocytes/100 WBC (Bld) 13.4 % Low 19-41 [facility] Comment on above: Performed By: #### L 500.2500, L100.0100 ####[facility] [address] [place], [address] MCH (RBC) [Entitic mass] 26.8 pg Low 27.0-32.0 [facility] Comment on above: Performed By: #### L 500.2500, L100.0100 ####[facility] [address] [place], [address] MCHC (RBC) [Mass/Vol] 29.4 g/dL Low 32-36 [facility] Comment on above: Performed By: #### L 500.2500, L100.0100 ####[facility] [address] [place], [address] MCV (RBC) [Entitic vol] 91.2 fL Normal 80-94 [facility] Comment on above: Performed By: #### L 500.2500, L100.0100 ####[facility] [address] [place], [address] Monocytes/100 WBC (Bld) 12.2 % High 0-10 [facility] Comment on above: Performed By: #### L 500.2500, L100.0100 ####[facility] [address] [place], [address] Neutrophils/100 WBC (Bld) 72.4 % High 47-70 [facility] Comment on above: Performed By: #### L 500.2500, L100.0100 ####[facility] [address] [place], [address] Nucleated RBC (Bld) [#/Vol] 0 10*3/uL Normal 0-5 [facility] Comment on above: Performed By: #### L 500.2500, L100.0100 ####[facility] [address] [place], [address] Platelet mean volume (Bld) [Entitic vol] 10.7 fL Normal 6.2-12.0 [facility] Comment on above: Performed By: #### L 500.2500, L100.0100 ####[facility] [address] [place], [address] Platelets (Bld) [#/Vol] 279 10*3/uL Normal 150-450 [facility] Comment on above: Performed By: #### L 500.2500, L100.0100 ####[facility] [address] [place], [address] RBC (Bld) [#/Vol] 2.95 10*6/uL Low 4.6-6.2 [facility] Comment on above: Performed By: #### L 500.2500, L100.0100 ####[facility] [address] [place], [address] RDW SD 54.3 fl High 35.1-43.9 [facility] Comment on above: Performed By: #### L 500.2500, L100.0100 ####[facility] [address] [place], [address] WBC (Bld) [#/Vol] 9.8 10*3/uL Normal 4.4-11.0 [facility] Comment on above: Performed By: #### L 500.2500, L100.0100 ####[facility] [address] [place], [address] Consultation - Nephrologyon 08-30-2024 Consultation - Nephrology Normal [facility] Vancomycin, Random Levelon 0 08-30-2024 VANCO, RANDOM 12.3 ug/mL Normal 0.0-15.0 [facility] Comment on above: Result Comment: VANC OMYCIN STANDARD DRUG THERAPY: CRITICAL VALUE IS > 15.0 mg/LVANCOMYCIN HIGH INTENSITY THERAPY: CRITICAL VALUE IS > 20.0 mg/LPLEASE CONTACT PHARMACY SERVICES (#4869) FOR INTERPRETATIONOF RESULTS. THIS RESULT DOES NOT REPRESENT A PEAK OR TROUGHLEVEL FOR THIS DRUG. Performed By: #### L 501.8850 ####[facility] [address] [place], [address] Bedside Glucoseon 08-29-2024 FINGERSTICK GLU 218 mg/dL High 74-106 [facility] Comment on above: Result Comment: FANG GEMENT OF PATIENT CARE PER NURSING PROTOCOL Performed By: #### L 501.080 ####[facility] [address] [place], [address] FINGERSTICK GLU 236 mg/dL High 74-106 [facility] Comment on above: Result Comment: FANG GEMENT OF PATIENT CARE PER NURSING PROTOCOL Performed By: #### L 501.080 ####[facility] [address] [place], [address] FINGERSTICK GLU 220 mg/dL High 74-106 [facility] Comment on above: Result Comment: FANG GEMENT OF PATIENT CARE PER NURSING PROTOCOL Performed By: #### L 501.080 ####[facility] [address] [place], [address] FINGERSTICK GLU 175 mg/dL High 74-106 [facility] Comment on above: Result Comment: FANG GEMENT OF PATIENT CARE PER NURSING PROTOCOL Performed By: #### L 501.080 ####[facility] [address] [place], [address] Decalcification bone/plaqueo n 08-29-2024 Decalcification bone/plaque Normal [facility] Comment on above: Performed By: #### P DEC ####[facility] [address] [place], [address] H AND P Exam - Surgicalon H&P Exam - Surgical Normal [facility] MR/POSTOP.ANEon 08-29-2024 MR/POSTOP.ANE Normal [facility] MR/RUOCEWQW1tb 08-29-2024 MR/POSTOPAN2 Normal [facility] Operative Reporton Operative Report Normal [facility] BRCon 08-28-2024 RC Normal [facility] Comment on above: Result Comment: [id number] AP RC XM COMPATIBLE Performed By: #### B TSPAT, L500.2500, [facility], L100.0500 ####[facility] [address] 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, [address] CO2 [Moles/Vol] 24.9 mmol/L Normal 21.0-32.0 [facility] Comment on above: Order Comment: 400.1 Amputation Below Knee (Right) Performed By: #### B TSPAT, L500.2500, [facility], L100.0500 ####[facility] [address] [place], [address] Creatinine [Mass/Vol] 5.77 mg/dL High 0.70-1.20 [facility] Comment on above: Order Comment: 400.1 Amputation Below Knee (Right) Performed By: #### B TSPAT, L500.2500, [facility], L100.0500 ####[facility] [address] [place], [address] GAP 16 High 5-15 [facility] Comment on above: Order Comment: 400.1 Amputation Below Knee (Right) Performed By: #### B TSPAT, L500.2500, [facility], L100.0500 ####[facility] [address] [place], [address] GFR/1.73 sq M.predicted among non-blacks MDRD (S/P/Bld) [Vol rate/Area] 9 mL/min/{1.73_m2} Low >60 [facility] Comment on above: Order Comment: 400.1 Amputation Below Knee (Right) Result Comment: mL/m in/1.73m2 CKD-EPI Creatinine Equation (2020) Performed By: #### B TSPAT, L500.2500, [facility], L100.0500 ####[facility] [address] [place], [address] Glucose [Mass/Vol] 93 mg/dL Normal 70-99 [facility] Comment on above: Order Comment: 400.1 Amputation Below Knee (Right) Performed By: #### B TSPAT, L500.2500, BR, L100.0500 ####[facility] [address] [place], [address] Potassium [Moles/Vol] 4.4 mmol/L Normal 3.3-5.1 [facility] Comment on above: Order Comment: 400.1 Amputation Below Knee (Right) Performed By: #### B TSPAT, L500.2500, [facility], L100.0500 ####[facility] [address] [place], [address] Sodium [Moles/Vol] 134 mmol/L Normal 133-145 [facility] Comment on above: Order Comment: 400.1 Amputation Below Knee (Right) Performed By: #### B TSPAT, L500.2500, [facility], L100.0500 ####[facility] [address] [place], [address] Urea nitrogen [Mass/Vol] 76 mg/dL High 4-19 [facility] Comment on above: Order Comment: 400.1 Amputation Below Knee (Right) Performed By: #### B TSPAT, L500.2500, [facility], L100.0500 ####[facility] [address] [place], [address] CBC-Complete Blood Cnt No Di ffon 08-28-2024 Erythrocyte distribution width (RBC) [Ratio] 16.2 % High 11.6-14.6 [facility] Comment on above: Order Comment: 400.1 Performed By: #### B TSPAT, L500.2500, [facility], L100.0500 ####[facility] [address] [place], [address] Hematocrit (Bld) [Volume fraction] 30.6 % Low 40-54 [facility] Comment on above: Order Comment: 400.1 Performed By: #### B TSPAT, L500.2500, BR, L100.0500 ####[facility] [address] [place], [address] Hemoglobin (Bld) [Mass/Vol] 9.1 g/dL Low 13.0-16.5 [facility] Comment on above: Order Comment: 400.1 Performed By: #### B TSPAT, L500.2500, [facility], L100.0500 ####[facility] [address] [place], [address] MCH (RBC) [Entitic mass] 26.9 pg Low 27.0-32.0 [facility] Comment on above: Order Comment: 400.1 Performed By: #### B TSPAT, L500.2500, [facility], L100.0500 ####[facility] [address] [place], [address] MCHC (RBC) [Mass/Vol] 29.7 g/dL Low 32-36 [facility] Comment on above: Order Comment: 400.1 Performed By: #### B TSPAT, L500.2500, [facility], L100.0500 ####[facility] [address] [place], [address] MCV (RBC) [Entitic vol] 90.5 fL Normal 80-94 [facility] Comment on above: Order Comment: 400.1 Performed By: #### B TSPAT, L500.2500, [facility], L100.0500 ####[facility] [address] [place], [address] Platelet mean volume (Bld) [Entitic vol] 10.5 fL Normal 6.2-12.0 [facility] Comment on above: Order Comment: 400.1 Performed By: #### B TSPAT, L500.2500, [facility], L100.0500 ####[facility] [address] [place], [address] Platelets (Bld) [#/Vol] 321 10*3/uL Normal 150-450 [facility] Comment on above: Order Comment: 400.1 Performed By: #### B TSPAT, L500.2500, BR, L100.0500 ####[facility] [address] [place], [address] RBC (Bld) [#/Vol] 3.38 10*6/uL Low 4.6-6.2 [facility] Comment on above: Order Comment: 400.1 Performed By: #### B TSPAT, L500.2500, [facility], L100.0500 ####[facility] [address] [place], [address] RDW SD 53.1 fl High 35.1-43.9 [facility] Comment on above: Order Comment: 400.1 Performed By: #### B TSPAT, L500.2500, [facility], L100.0500 ####[facility] [address] [place], [address] WBC (Bld) [#/Vol] 9.5 10*3/uL Normal 4.4-11.0 [facility] Comment on above: Order Comment: 400.1 Performed By: #### B TSPAT, L500.2500, [facility], L100.0500 ####[facility] [address] [place], [address] MR/PAT.ANEon 08-28-2024 MR/PAT.ANE Normal [facility] Type AND Screen - PAT ONLYon 08-28-2024 Ab SCREEN GEL Negative Normal [facility] Comment on above: Order Comment: SURGE RY DATE 08/29/2024 Amputation Below Knee (Right)[id number] Below Knee (Right)[id number] Below Knee (Right)TURNEYOTHER Performed By: #### B TSPAT, L500.2500, [facility], L100.0500 ####[facility] [address] [place], [address] Absolute lymphocyte countOrd ered By: Nando Wiggins on 08-27-2024 Lymphocytes Auto (Unsp spec) [#/Vol] 1.45 10*3/uL 0.83-4.51 [facility] Anion gap in Serum or Plasma Ordered By: Nando Wiggins on 08-27-2024 Anion gap [Moles/Vol] 15 mmol/L 5-15 [facility] Automated lymphocyte count a s percentage of total leukocytesOrdered By: Nando Wiggins on 08-27-2024 Lymphocytes/100 WBC Auto (Unsp spec) 16.0 % Low 19-41 [facility] BUN/creatinine ratioOrdered By: fili Wiggins on 08-27-2024 Urea nitrogen/Creatinine [Mass ratio] 10.5 mg/mg 10-20 [facility] Basophil percentageOrdered B y: Nando Wiggins on 08-27-2024 Basophils/100 WBC (Bld) 0.6 % 0-1 [facility] Carbon dioxide, total [Moles /volume] in Central venous bloodOrdered By: Nando Wiggins on 08-27-2024 CO2 [Moles/Vol] 26.5 mmol/L 21.0-32.0 [facility] Chloride assayOrdered By: Kathie Wiggins on 08-27-2024 Chloride [Moles/Vol] 94 mmol/L Low 98-108 [facility] Eosinophil percentageOrdered By: Nando Wiggins on 08-27-2024 Eosinophils/100 WBC (Bld) 2.3 % 0-5 [facility] Erythrocyte distribution wid th ratioOrdered By: Nando Wiggins on 08-27-2024 Erythrocyte distribution width (RBC) [Ratio] 16.3 % High 11.6-14.6 [facility] Erythrocyte distribution wid th standard deviationOrdered By: fili Wiggins on 08-27-2024 Erythrocyte distribution width (RBC) [Ratio] 54.3 fl High 35.1-43.9 [facility] Glomerular filtration rate ( GFR) estimation/1.73 sq m using serum, plasma, or whole bOrdered By: Nando Wiggins on 08-27-2024 GFR/1.73 sq M.predicted among non-blacks MDRD (S/P/Bld) [Vol rate/Area] 10 mL/min/{1.73_m2} Low >60 [facility] Hematocrit Auto (Bld) [Volum e fraction]Ordered By: Nando Wiggins on 08-27-2024 Hematocrit (Bld) [Volume fraction] 30.4 % Low 40-54 [facility] Hemoglobin measurementOrdere d By: Nando Wiggins on 08-27-2024 Hemoglobin (Bld) [Mass/Vol] 9.0 g/dL Low 13.0-16.5 [facility] Immature granulocytes/100 WB C Auto (Bld)Ordered By: Nando Wiggins on 08-27-2024 Immature granulocytes/100 WBC (Bld) 0.700 % 0.0-0.9 [facility] MCV (mean corpuscular volume ) determinationOrdered By: Nando Wiggins on 08-27-2024 MCV (RBC) [Entitic vol] 91.3 fL 80-94 [facility] Mean corpuscular hemoglobin (MCH) determinationOrdered By: fili Wiggins on 08-27-2024 MCH (RBC) [Entitic mass] 27.0 pg 27.0-32.0 [facility] Monocyte percentageOrdered B y: Nando Wiggins on 08-27-2024 Monocytes/100 WBC (Bld) 10.7 % High 0-10 [facility] Neutrophil percentageOrdered By: biancasalinaswolf Wiggins on 08-27-2024 Neutrophils/100 WBC (Bld) 69.7 % 47-70 [facility] Platelet countOrdered By: Kathie biancalilian Wiggins on 08-27-2024 Platelets (Bld) [#/Vol] 300 10*3/uL 150-450 [facility] Potassium measurement (mass/ volume)Ordered By: Nando Wiggins on 08-27-2024 Potassium (Unsp spec) [Mass/Vol] 3.7 mmol/L 3.3-5.1 [facility] RBC Auto (Bld) [#/Vol]Ordere d By: Nando Wiggins on 08-27-2024 RBC (Bld) [#/Vol] 3.33 10*6/uL Low 4.6-6.2 [facility] Serum creatinine measurement (mass/volume)Ordered By: Nando Wiggins on 08-27-2024 Creatinine [Mass/Vol] 5.29 mg/dL High 0.70-1.20 [facility] Serum glucose measurement (m ass/volume)Ordered By: Nando Wiggins on 08-27-2024 Glucose [Mass/Vol] 261 mg/dL High 70-99 [facility] Serum or plasma calcium lilli urement (mass/volume)Ordered By: Nando Wiggins on 08-27-2024 Calcium [Mass/Vol] 8.8 mg/dL 7.6-11.0 [facility] Serum or plasma urea nitroge n measurement (mass/volume)Ordered By: Nando Wiggins on 08-27-2024 Urea nitrogen [Mass/Vol] 55 mg/dL High 4-19 [facility] Sodium levelOrdered By: Deb Wiggins on 08-27-2024 Sodium [Moles/Vol] 135 mmol/L 133-145 [facility] White blood cell (WBC) count Ordered By: Nando Wiggins on 08-27-2024 WBC (Bld) [#/Vol] 9.0 10*3/uL 4.4-11.0 [facility] Absolute lymphocyte countOrd ered By: Nando Wiggins on 08-20-2024 Lymphocytes Auto (Unsp spec) [#/Vol] 2.15 10*3/uL 0.83-4.51 [facility] Anion gap in Serum or Plasma Ordered By: Nando Wiggins on 08-20-2024 Anion gap [Moles/Vol] 15 mmol/L 5-15 [facility] Automated lymphocyte count a s percentage of total leukocytesOrdered By: Nando Wiggins on 08-20-2024 Lymphocytes/100 WBC Auto (Unsp spec) 25.2 % 19-41 [facility] BUN/creatinine ratioOrdered By: Nando Wiggins on 08-20-2024 Urea nitrogen/Creatinine [Mass ratio] 12.6 mg/mg 10-20 [facility] Basophil percentageOrdered B y: Debsrinathwolf Wiggins on 08-20-2024 Basophils/100 WBC (Bld) 0.8 % 0-1 [facility] Carbon dioxide, total [Moles /volume] in Central venous bloodOrdered By: Nando Wiggins on 08-20-2024 CO2 [Moles/Vol] 26.9 mmol/L 21.0-32.0 [facility] Chloride assayOrdered By: Kathie rehanwolf Wiggins on 08-20-2024 Chloride [Moles/Vol] 93 mmol/L Low 98-108 [facility] Eosinophil percentageOrdered By: aNndo Edenlakshminereida on 08-20-2024 Eosinophils/100 WBC (Bld) 2.2 % 0-5 [facility] Erythrocyte distribution wid th ratioOrdered By: biancasalinaswolf Wiggins on 08-20-2024 Erythrocyte distribution width (RBC) [Ratio] 16.0 % High 11.6-14.6 [facility] Erythrocyte distribution wid th standard deviationOrdered By: Nando Wiggins on 08-20-2024 Erythrocyte distribution width (RBC) [Ratio] 54.5 fl High 35.1-43.9 [facility] Glomerular filtration rate ( GFR) estimation/1.73 sq m using serum, plasma, or whole bOrdered By: Nando Wiggins on 08-20-2024 GFR/1.73 sq M.predicted among non-blacks MDRD (S/P/Bld) [Vol rate/Area] 12 mL/min/{1.73_m2} Low >60 [facility] Hematocrit Auto (Bld) [Volum e fraction]Ordered By: Nando Wiggins on 08-20-2024 Hematocrit (Bld) [Volume fraction] 30.9 % Low 40-54 [facility] Hemoglobin measurementOrdere d By: Nando Wiggins on 08-20-2024 Hemoglobin (Bld) [Mass/Vol] 9.2 g/dL Low 13.0-16.5 [facility] Immature granulocytes/100 WB C Auto (Bld)Ordered By: Nando Wiggins on 08-20-2024 Immature granulocytes/100 WBC (Bld) 0.800 % 0.0-0.9 [facility] MCV (mean corpuscular volume ) determinationOrdered By: Kathiebiancasrinathwolf Edenlakshminereida on 08-20-2024 MCV (RBC) [Entitic vol] 92.2 fL 80-94 [facility] Mean corpuscular hemoglobin (MCH) determinationOrdered By: Nando Wiggins on 08-20-2024 MCH (RBC) [Entitic mass] 27.5 pg 27.0-32.0 [facility] Monocyte percentageOrdered B y: Nando Meekcheko on 08-20-2024 Monocytes/100 WBC (Bld) 8.3 % 0-10 [facility] Neutrophil percentageOrdered By: biancasalinaswolf Meekcheko on 08-20-2024 Neutrophils/100 WBC (Bld) 62.7 % 47-70 [facility] Platelet countOrdered By: Kathie fili Meekcheko on 08-20-2024 Platelets (Bld) [#/Vol] 321 10*3/uL 150-450 [facility] Potassium measurement (mass/ volume)Ordered By: Kathiefili Edenlakshminereida on 08-20-2024 Potassium (Unsp spec) [Mass/Vol] 4.1 mmol/L 3.3-5.1 [facility] RBC Auto (Bld) [#/Vol]Ordere d By: Nando Meekcheko on 08-20-2024 RBC (Bld) [#/Vol] 3.35 10*6/uL Low 4.6-6.2 [facility] Serum creatinine measurement (mass/volume)Ordered By: Nando Wiggins on 08-20-2024 Creatinine [Mass/Vol] 4.37 mg/dL High 0.70-1.20 [facility] Serum glucose measurement (m ass/volume)Ordered By: Kathiebiancasrinathwolf Wiggins on 08-20-2024 Glucose [Mass/Vol] 85 mg/dL 70-99 [facility] Serum or plasma calcium lilli urement (mass/volume)Ordered By: Kathiefili Wiggins on 08-20-2024 Calcium [Mass/Vol] 9.3 mg/dL 7.6-11.0 [facility] Serum or plasma urea nitroge n measurement (mass/volume)Ordered By: Nando Wiggins on 08-20-2024 Urea nitrogen [Mass/Vol] 55 mg/dL High 4-19 [facility] Sodium levelOrdered By: Deb lilian Rosalie on 08-20-2024 Sodium [Moles/Vol] 134 mmol/L 133-145 [facility] White blood cell (WBC) count Ordered By: Nando Wiggins on 08-20-2024 WBC (Bld) [#/Vol] 8.5 10*3/uL 4.4-11.0 [facility] Absolute lymphocyte countOrd ered By: Nando Wiggins on 08-13-2024 Lymphocytes Auto (Unsp spec) [#/Vol] 1.80 10*3/uL 0.83-4.51 [facility] Anion gap in Serum or Plasma Ordered By: Nando Wiggins on 08-13-2024 Anion gap [Moles/Vol] 15 mmol/L 5-15 [facility] Automated lymphocyte count a s percentage of total leukocytesOrdered By: Nando Wiggins on 08-13-2024 Lymphocytes/100 WBC Auto (Unsp spec) 22.5 % 19-41 [facility] BUN/creatinine ratioOrdered By: Nando Wiggins on 08-13-2024 Urea nitrogen/Creatinine [Mass ratio] 8.8 mg/mg Low 10-20 [facility] Basophil percentageOrdered B y: Nando Wiggins on 08-13-2024 Basophils/100 WBC (Bld) 0.5 % 0-1 [facility] Bilirubin directOrdered By: Nando Wiggins on 08-13-2024 Bilirubin.direct [Mass/Vol] mg/dL 0.00-0.30 [facility] Bilirubin, totalOrdered By: Nando Wiggins on 08-13-2024 Bilirubin [Mass/Vol] 0.25 mg/dL 0.00-1.30 [facility] Carbon dioxide, total [Moles /volume] in Central venous bloodOrdered By: Nando Wiggins on 08-13-2024 CO2 [Moles/Vol] 25.2 mmol/L 21.0-32.0 [facility] Chloride assayOrdered By: Kathie Wiggins on 08-13-2024 Chloride [Moles/Vol] 94 mmol/L Low 98-108 [facility] Eosinophil percentageOrdered By: Nando Wiggins on 08-13-2024 Eosinophils/100 WBC (Bld) 2.6 % 0-5 [facility] Erythrocyte distribution wid th ratioOrdered By: Nando Wiggins on 08-13-2024 Erythrocyte distribution width (RBC) [Ratio] 16.8 % High 11.6-14.6 [facility] Erythrocyte distribution wid th standard deviationOrdered By: Nando Wiggins on 08-13-2024 Erythrocyte distribution width (RBC) [Ratio] 57.7 fl High 35.1-43.9 [facility] Glomerular filtration rate ( GFR) estimation/1.73 sq m using serum, plasma, or whole bOrdered By: Nando Wiggins on 08-13-2024 GFR/1.73 sq M.predicted among non-blacks MDRD (S/P/Bld) [Vol rate/Area] 13 mL/min/{1.73_m2} Low >60 [facility] Hematocrit Auto (Bld) [Volum e fraction]Ordered By: Nando Wiggins on 08-13-2024 Hematocrit (Bld) [Volume fraction] 28.8 % Low 40-54 [facility] Hemoglobin A1c percentageOrd ered By: Nando Wiggins on 08-13-2024 HbA1c (Bld) [Mass fraction] 6.1 % >5.7 [facility] Hemoglobin measurementOrdere d By: Nando Wiggins on 08-13-2024 Hemoglobin (Bld) [Mass/Vol] 8.6 g/dL Low 13.0-16.5 [facility] Immature granulocytes/100 WB C Auto (Bld)Ordered By: Nando Wiggins on 08-13-2024 Immature granulocytes/100 WBC (Bld) 0.400 % 0.0-0.9 [facility] MCV (mean corpuscular volume ) determinationOrdered By: Nando Wiggins on 08-13-2024 MCV (RBC) [Entitic vol] 94.4 fL High 80-94 [facility] Mean corpuscular hemoglobin (MCH) determinationOrdered By: Nando Wiggins on 08-13-2024 MCH (RBC) [Entitic mass] 28.2 pg 27.0-32.0 [facility] Monocyte percentageOrdered B y: Nando Wiggins on 08-13-2024 Monocytes/100 WBC (Bld) 10.7 % High 0-10 [facility] Neutrophil percentageOrdered By: Nando Wiggins on 08-13-2024 Neutrophils/100 WBC (Bld) 63.3 % 47-70 [facility] No Panel InformationOrdered By: Nando Wiggins on 08-13-2024 18 U/L <38 [facility] Platelet countOrdered By: Kathie Wiggins on 08-13-2024 Platelets (Bld) [#/Vol] 265 10*3/uL 150-450 [facility] Potassium measurement (mass/ volume)Ordered By: Nando Wiggins on 08-13-2024 Potassium (Unsp spec) [Mass/Vol] 3.9 mmol/L 3.3-5.1 [facility] RBC Auto (Bld) [#/Vol]Ordere d By: Nando Wiggins on 08-13-2024 RBC (Bld) [#/Vol] 3.05 10*6/uL Low 4.6-6.2 [facility] Serum creatinine measurement (mass/volume)Ordered By: Nando Wiggins on 08-13-2024 Creatinine [Mass/Vol] 4.28 mg/dL High 0.70-1.20 [facility] Serum globulin measurementOr dered By: Nando Wiggins on 08-13-2024 Globulin (S) [Mass/Vol] 3.8 g/dL 2.2-4.2 [facility] Serum glucose measurement (m ass/volume)Ordered By: Nando Wiggins on 08-13-2024 Glucose [Mass/Vol] 96 mg/dL 70-99 [facility] Serum or plasma alanine hawkins otransferase (ALT) measurementOrdered By: Nando Wiggins on 08-13-2024 ALT [Catalytic activity/Vol] 8 U/L <47 [facility] Serum or plasma albumin lilli urement (mass/volume)Ordered By: Nando Wiggins on 08-13-2024 Albumin [Mass/Vol] 2.8 g/dL Low 3.4-4.8 [facility] Serum or plasma alkaline penelope sphatase measurementOrdered By: Nando Wiggins on 08-13-2024 ALP [Catalytic activity/Vol] 56 U/L 40-129 [facility] Serum or plasma calcium lilli urement (mass/volume)Ordered By: Nando Wiggins on 08-13-2024 Calcium [Mass/Vol] 9.0 mg/dL 7.6-11.0 [facility] Serum or plasma urea nitroge n measurement (mass/volume)Ordered By: Nando Wiggins on 08-13-2024 Urea nitrogen [Mass/Vol] 38 mg/dL High 4-19 [facility] Sodium levelOrdered By: Deb lilian Rosalie on 08-13-2024 Sodium [Moles/Vol] 134 mmol/L 133-145 [facility] Total proteinOrdered By: Sinan kermitwolf Wiggins on 08-13-2024 Protein [Mass/Vol] 6.6 g/dL 5.9-8.4 [facility] Vitamin B12 ser/plasOrdered By: Nando Wiggins on 08-13-2024 Cobalamin (Vitamin B12) [Mass/Vol] 782 pg/mL 180-914 [facility] White blood cell (WBC) count Ordered By: Nando Wiggins on 08-13-2024 WBC (Bld) [#/Vol] 8.0 10*3/uL 4.4-11.0 [facility] Absolute lymphocyte countOrd ered By: Nando Wiggins on 08-06-2024 Lymphocytes Auto (Unsp spec) [#/Vol] 1.82 10*3/uL 0.83-4.51 [facility] Anion gap in Serum or Plasma Ordered By: Nando Wgigins on 08-06-2024 Anion gap [Moles/Vol] 14 mmol/L 5-15 [facility] Automated lymphocyte count a s percentage of total leukocytesOrdered By: Nando Wiggins on 08-06-2024 Lymphocytes/100 WBC Auto (Unsp spec) 19.7 % 19-41 [facility] BUN/creatinine ratioOrdered By: Nando Wiggins on 08-06-2024 Urea nitrogen/Creatinine [Mass ratio] 11.0 mg/mg 10-20 [facility] Basophil percentageOrdered B y: Nando Wiggins on 08-06-2024 Basophils/100 WBC (Bld) 0.4 % 0-1 [facility] Carbon dioxide, total [Moles /volume] in Central venous bloodOrdered By: Nando Wiggins on 08-06-2024 CO2 [Moles/Vol] 26.0 mmol/L 21.0-32.0 [facility] Chloride assayOrdered By: Kathie biancalilian Wiggins on 08-06-2024 Chloride [Moles/Vol] 92 mmol/L Low 98-108 [facility] Eosinophil percentageOrdered By: Nando Wiggins on 08-06-2024 Eosinophils/100 WBC (Bld) 2.6 % 0-5 [facility] Erythrocyte distribution wid th ratioOrdered By: Nando Wiggins on 08-06-2024 Erythrocyte distribution width (RBC) [Ratio] 16.6 % High 11.6-14.6 [facility] Erythrocyte distribution wid th standard deviationOrdered By: Debsalinaswolf Wiggins on 08-06-2024 Erythrocyte distribution width (RBC) [Ratio] 56.6 fl High 35.1-43.9 [facility] Glomerular filtration rate ( GFR) estimation/1.73 sq m using serum, plasma, or whole bOrdered By: Nando Wiggins on 08-06-2024 GFR/1.73 sq M.predicted among non-blacks MDRD (S/P/Bld) [Vol rate/Area] 12 mL/min/{1.73_m2} Low >60 [facility] Hematocrit Auto (Bld) [Volum e fraction]Ordered By: Nando Wiggins on 08-06-2024 Hematocrit (Bld) [Volume fraction] 27.3 % Low 40-54 [facility] Hemoglobin measurementOrdere d By: Nando Brownenereida on 08-06-2024 Hemoglobin (Bld) [Mass/Vol] 8.1 g/dL Low 13.0-16.5 [facility] Immature granulocytes/100 WB C Auto (Bld)Ordered By: Kathiebiancalilian Meeklakshminereida on 08-06-2024 Immature granulocytes/100 WBC (Bld) 1.000 % High 0.0-0.9 [facility] MCV (mean corpuscular volume ) determinationOrdered By: Kathiebiancasrinathwolf Edenlakshminereida on 08-06-2024 MCV (RBC) [Entitic vol] 93.5 fL 80-94 [facility] Mean corpuscular hemoglobin (MCH) determinationOrdered By: Kathiefili Edenlakshminereida on 08-06-2024 MCH (RBC) [Entitic mass] 27.7 pg 27.0-32.0 [facility] Monocyte percentageOrdered B y: Nando Meeklakshminereida on 08-06-2024 Monocytes/100 WBC (Bld) 12.1 % High 0-10 [facility] Neutrophil percentageOrdered By: biancasalinaswolf Meeklakshminereida on 08-06-2024 Neutrophils/100 WBC (Bld) 64.2 % 47-70 [facility] Platelet countOrdered By: Kathie fili Meeklakshminereida on 08-06-2024 Platelets (Bld) [#/Vol] 263 10*3/uL 150-450 [facility] Potassium measurement (mass/ volume)Ordered By: Kathiebiancasrinathwolf Edenlakshminereida on 08-06-2024 Potassium (Unsp spec) [Mass/Vol] 3.4 mmol/L 3.3-5.1 [facility] RBC Auto (Bld) [#/Vol]Ordere d By: Nando Meeklakshminereida on 08-06-2024 RBC (Bld) [#/Vol] 2.92 10*6/uL Low 4.6-6.2 [facility] Serum creatinine measurement (mass/volume)Ordered By: Kathiefili Edenlakshminereida on 08-06-2024 Creatinine [Mass/Vol] 4.43 mg/dL High 0.70-1.20 [facility] Serum glucose measurement (m ass/volume)Ordered By: Kathiebiancasrinathwolf Wiggins on 08-06-2024 Glucose [Mass/Vol] 318 mg/dL High 70-99 [facility] Serum or plasma calcium lilli urement (mass/volume)Ordered By: Kathiebiancasrinathwolf Edenlakshminereida on 08-06-2024 Calcium [Mass/Vol] 8.7 mg/dL 7.6-11.0 [facility] Serum or plasma urea nitroge n measurement (mass/volume)Ordered By: Kathiebiancasalinaswolf Wiggins on 08-06-2024 Urea nitrogen [Mass/Vol] 49 mg/dL High 4-19 [facility] Sodium levelOrdered By: Deb quintana Meeklakshminereida on 08-06-2024 Sodium [Moles/Vol] 131 mmol/L Low 133-145 [facility] White blood cell (WBC) count Ordered By: Nando Wiggins on 08-06-2024 WBC (Bld) [#/Vol] 9.3 10*3/uL 4.4-11.0 [facility] Absolute lymphocyte countOrd ered By: Des Garcia on 08-01-2024 Lymphocytes Auto (Unsp spec) [#/Vol] 1.79 10*3/uL 0.83-4.51 [facility] Automated blood erythrocyte countOrdered By: Des Garcia on 08-01-2024 RBC (Bld) [#/Vol] 2.95 10*6/uL Low 4.6-6.2 [facility] Comment on above: Performed By: #### L 100.0100 ####[facility] [address] [facility] [place], [place], [id number] Automated blood hematocrit ( percentage)Ordered By: Des Garcia on 08-01-2024 Hematocrit (Bld) [Volume fraction] 27.6 % Low 40-54 [facility] Comment on above: Performed By: #### L 100.0100 ####[facility] [address] [place], [place], [id number] Automated lymphocyte count a s percentage of total leukocytesOrdered By: Des Garcia on 08-01-2024 Lymphocytes/100 WBC Auto (Unsp spec) 20.9 % - [facility] Basophil percentageOrdered B y: Des Garcia on 08-01-2024 Basophils/100 WBC (Bld) 0.7 % Normal 0-1 [facility] Comment on above: Performed By: #### L 100.0100 ####[facility] [address] [place], [address] CBC W/Diff, Automatedon 07-21 Absolute Lymph 1.79 X10 3/uL Normal 0.83-4.51 [facility] Comment on above: Performed By: #### L 100.0100 ####[facility] [address] [place], [address] Absolute Neut 5.3 X10 3/uL Normal 2.0-7.7 [facility] Comment on above: Performed By: #### L 100.0100 ####[facility] [address] [place], [address] IG% 0.500 Normal 0.0-0.9 [facility] Comment on above: Result Comment: IG% - Immature Granulocytes (promyelocytes, myelocytes andmetamyelocytes) > 1% indicates that a LEFT SHIFT is Present. Performed By: #### L 100.0100 ####[facility] [address] [place], [address] Lymphocytes/100 WBC (Bld) 20.9 % Normal - [facility] Comment on above: Performed By: #### L 100.0100 ####[facility] [address] [place], [address] MCHC (RBC) [Mass/Vol] 29.3 g/dL Low 32-36 [facility] Comment on above: Performed By: #### L 100.0100 ####[facility] [address] [place], [address] Nucleated RBC (Bld) [#/Vol] 0 10*3/uL Normal 0-5 [facility] Comment on above: Performed By: #### L 100.0100 ####[facility] [address] [place], [address] Platelet mean volume (Bld) [Entitic vol] 10.6 fL Normal 6.2-12.0 [facility] Comment on above: Performed By: #### L 100.0100 ####[facility] [address] [place], [address] RDW SD 57.8 fl High 35.1-43.9 [facility] Comment on above: Performed By: #### L 100.0100 ####[facility] [address] [place], [place], [id number] Emergency Department Summary on 08-01-2024 Emergency Department Summary Normal [facility] Eosinophil percentageOrdered By: Des Garcia on 08-01-2024 Eosinophils/100 WBC (Bld) 3.9 % Normal 0-5 [facility] Comment on above: Performed By: #### L 100.0100 ####[facility] [address] [place], [address] Erythrocyte distribution wid th ratioOrdered By: Des Garcia on 08-01-2024 Erythrocyte distribution width (RBC) [Ratio] 16.9 % High 11.6-14.6 [facility] Comment on above: Performed By: #### L 100.0100 ####[facility] [address] [place], [address] Erythrocyte distribution wid th standard deviationOrdered By: Des Garcia on 08-01-2024 Erythrocyte distribution width (RBC) [Ratio] 57.8 fl High 35.1-43.9 [facility] Foot min 3 Viewson 5 Foot min 3 Views Normal [facility] Hemoglobin measurementOrdere d By: Des Garcia on 08-01-2024 Hemoglobin (Bld) [Mass/Vol] 8.1 g/dL Low 13.0-16.5 [facility] Comment on above: Performed By: #### L 100.0100 ####[facility] [address] [place], [address] Immature granulocytes/100 WB C Auto (Bld)Ordered By: Des Garcia on 08-01-2024 Immature granulocytes/100 WBC (Bld) 0.500 % 0.0-0.9 [facility] MCV (mean corpuscular volume ) determinationOrdered By: Des Garcia on 08-01-2024 MCV (RBC) [Entitic vol] 93.6 fL Normal 80-94 [facility] Comment on above: Performed By: #### L 100.0100 ####[facility] [address] [place], [address] Mean corpuscular hemoglobin (MCH) determinationOrdered By: Des Garcia on 08-01-2024 MCH (RBC) [Entitic mass] 27.5 pg Normal 27.0-32.0 [facility] Comment on above: Performed By: #### L 100.0100 ####[facility] [address] [place], [address] Monocyte percentageOrdered B y: Des Garcia on 08-01-2024 Monocytes/100 WBC (Bld) 12.3 % High 0-10 [facility] Comment on above: Performed By: #### L 100.0100 ####[facility] [address] [place], [address] Neutrophil percentageOrdered By: Des Garcia on 08-01-2024 Neutrophils/100 WBC (Bld) 61.7 % Normal 47-70 [facility] Comment on above: Performed By: #### L 100.0100 ####[facility] [address] [place], [address] Platelet countOrdered By: Kana Garcia on 08-01-2024 Platelets (Bld) [#/Vol] 290 10*3/uL Normal 150-450 [facility] Comment on above: Performed By: #### L 100.0100 ####[facility] [address] [place], [place], [id number] White blood cell (WBC) count Ordered By: Des Garcia on 08-01-2024 WBC (Bld) [#/Vol] 8.6 10*3/uL Normal 4.4-11.0 [facility] Comment on above: Performed By: #### L 100.0100 ####[facility] [address] [place], [place], [address] Absolute lymphocyte countOrd ered By: Nando Wiggins on 07-30-2024 Lymphocytes Auto (Unsp spec) [#/Vol] 1.74 10*3/uL 0.83-4.51 [facility] Anion gap in Serum or Plasma Ordered By: Nando Wiggins on 07-30-2024 Anion gap [Moles/Vol] 16 mmol/L High 5-15 [facility] Automated lymphocyte count a s percentage of total leukocytesOrdered By: Nando Wiggins on 07-30-2024 Lymphocytes/100 WBC Auto (Unsp spec) 19.2 % 19-41 [facility] BUN/creatinine ratioOrdered By: Nando Wiggins on 07-30-2024 Urea nitrogen/Creatinine [Mass ratio] 8.4 mg/mg Low 10-20 [facility] Basophil percentageOrdered B y: Nando Wiggins on 07-30-2024 Basophils/100 WBC (Bld) 0.6 % 0-1 [facility] Carbon dioxide, total [Moles /volume] in Central venous bloodOrdered By: Nando Wiggins on 07-30-2024 CO2 [Moles/Vol] 26.4 mmol/L 21.0-32.0 [facility] Chloride assayOrdered By: Kathie Wiggins on 07-30-2024 Chloride [Moles/Vol] 91 mmol/L Low 98-108 [facility] Eosinophil percentageOrdered By: Nando Wiggins on 07-30-2024 Eosinophils/100 WBC (Bld) 2.8 % 0-5 [facility] Erythrocyte distribution wid th ratioOrdered By: Nando Wiggins on 07-30-2024 Erythrocyte distribution width (RBC) [Ratio] 17.2 % High 11.6-14.6 [facility] Erythrocyte distribution wid th standard deviationOrdered By: Nando Wiggins on 07-30-2024 Erythrocyte distribution width (RBC) [Ratio] 58.1 fl High 35.1-43.9 [facility] Glomerular filtration rate ( GFR) estimation/1.73 sq m using serum, plasma, or whole bOrdered By: Nando Wiggins on 07-30-2024 GFR/1.73 sq M.predicted among non-blacks MDRD (S/P/Bld) [Vol rate/Area] 13 mL/min/{1.73_m2} Low >60 [facility] Hematocrit Auto (Bld) [Volum e fraction]Ordered By: Nando Wiggins on 07-30-2024 Hematocrit (Bld) [Volume fraction] 26.5 % Low 40-54 [facility] Hemoglobin measurementOrdere d By: Nando Wiggins on 07-30-2024 Hemoglobin (Bld) [Mass/Vol] 8.1 g/dL Low 13.0-16.5 [facility] Immature granulocytes/100 WB C Auto (Bld)Ordered By: Nando Wiggins on 07-30-2024 Immature granulocytes/100 WBC (Bld) 0.800 % 0.0-0.9 [facility] MCV (mean corpuscular volume ) determinationOrdered By: Nando Wiggins on 07-30-2024 MCV (RBC) [Entitic vol] 92.3 fL 80-94 [facility] Mean corpuscular hemoglobin (MCH) determinationOrdered By: Nando Wiggins on 07-30-2024 MCH (RBC) [Entitic mass] 28.2 pg 27.0-32.0 [facility] Monocyte percentageOrdered B y: Nando Wiggins on 07-30-2024 Monocytes/100 WBC (Bld) 9.2 % 0-10 [facility] Neutrophil percentageOrdered By: Nando Wiggins on 07-30-2024 Neutrophils/100 WBC (Bld) 67.4 % 47-70 [facility] Platelet countOrdered By: Kathie biancalilian Wiggins on 07-30-2024 Platelets (Bld) [#/Vol] 334 10*3/uL 150-450 [facility] Potassium measurement (mass/ volume)Ordered By: Nando Wiggins on 07-30-2024 Potassium (Unsp spec) [Mass/Vol] 3.6 mmol/L 3.3-5.1 [facility] RBC Auto (Bld) [#/Vol]Ordere d By: Nando Wiggins on 07-30-2024 RBC (Bld) [#/Vol] 2.87 10*6/uL Low 4.6-6.2 [facility] Serum creatinine measurement (mass/volume)Ordered By: Nando Wiggins on 07-30-2024 Creatinine [Mass/Vol] 4.20 mg/dL High 0.70-1.20 [facility] Serum glucose measurement (m ass/volume)Ordered By: Nando Wiggins on 07-30-2024 Glucose [Mass/Vol] 173 mg/dL High 70-99 [facility] Serum or plasma calcium lilli urement (mass/volume)Ordered By: Nando Wiggins on 07-30-2024 Calcium [Mass/Vol] 8.5 mg/dL 7.6-11.0 [facility] Serum or plasma urea nitroge n measurement (mass/volume)Ordered By: Nando Wiggins on 07-30-2024 Urea nitrogen [Mass/Vol] 35 mg/dL High 4-19 [facility] Sodium levelOrdered By: Deb rosejeremie Rosalie on 07-30-2024 Sodium [Moles/Vol] 133 mmol/L 133-145 [facility] White blood cell (WBC) count Ordered By: Nando Wiggins on 07-30-2024 WBC (Bld) [#/Vol] 9.1 10*3/uL 4.4-11.0 [facility] Acid Fast Bacillus Cultureon 07-25-2024 tAFBC [facility] Comment on above: Performed By: #### M 600.2200, M300.2000, M100.4001, M300.3000, M100.2000, M100.3000, M600.2000 ####[facility] [address] [place], [address] Acid Fast Bacillus Smear/Flu oron 07-25-2024 tafb [facility] Comment on above: Performed By: #### M 600.2200, M300.2000, M100.4001, M300.3000, M100.2000, M100.3000, M600.2000 ####[facility] [address] [place], [address] Culture, Fungus 8482on 07-25 CUF [facility] Comment on above: Performed By: #### M 600.2200, M300.2000, M100.4001, M300.3000, M100.2000, M100.3000, M600.2000 ####[facility] [address] [place], [place], [address] Fungus Stain 8136on 07-26-19 25 FUNST [facility] Comment on above: Performed By: #### M 600.2200, M300.2000, M100.4001, M300.3000, M100.2000, M100.3000, M600.2000 ####[facility] [address] [place], [address] Absolute lymphocyte countOrd ered By: Nando Wiggins on 07-23-2024 Lymphocytes Auto (Unsp spec) [#/Vol] 2.13 10*3/uL 0.83-4.51 [facility] Automated lymphocyte count a s percentage of total leukocytesOrdered By: Nando Wiggins on 07-23-2024 Lymphocytes/100 WBC Auto (Unsp spec) 17.3 % Low 19-41 [facility] BUN/creatinine ratioOrdered By: Nando Wiggins on 07-23-2024 Urea nitrogen/Creatinine [Mass ratio] 14.6 mg/mg 10-20 [facility] Basic Metabolic Profile (BMP )on 07-23-2024 BUN Normal 7-18 [facility] Comment on above: Result Comment: Canc elled via OM: Order cancelled - Patient discharged Performed By: #### L 100.0100, L500.2500 ####[facility] [address] [place], [address] BUN/CRE Normal 10-20 [facility] Comment on above: Result Comment: Canc elled via OM: Order cancelled - Patient discharged Performed By: #### L 100.0100, L500.2500 ####[facility] [address] [place], [address] Calcium Normal 8.5-10.1 [facility] Comment on above: Result Comment: Canc elled via OM: Order cancelled - Patient discharged Performed By: #### L 100.0100, L500.2500 ####[facility] [address] [place], [address] CL Normal 98-107 [facility] Comment on above: Result Comment: Canc elled via OM: Order cancelled - Patient discharged Performed By: #### L 100.0100, L500.2500 ####[facility] [address] [place], [address] CO2 Normal 21.0-32.0 [facility] Comment on above: Result Comment: Canc elled via OM: Order cancelled - Patient discharged Performed By: #### L 100.0100, L500.2500 ####[facility] [address] [place], [address] CREAT,SERUM Normal 0.70-1.30 [facility] Comment on above: Result Comment: Canc elled via OM: Order cancelled - Patient discharged Performed By: #### L 100.0100, L500.2500 ####[facility] [address] [place], [address] eGFR Normal >60 [facility] Comment on above: Result Comment: Canc elled via OM: Order cancelled - Patient discharged Performed By: #### L 100.0100, L500.2500 ####[facility] [address] [place], [address] EST GFR - AA Normal >60 [facility] Comment on above: Result Comment: Canc elled via OM: Order cancelled - Patient discharged Performed By: #### L 100.0100, L500.2500 ####[facility] [address] [place], [address] GAP Normal 5-15 [facility] Comment on above: Result Comment: Canc elled via OM: Order cancelled - Patient discharged Performed By: #### L 100.0100, L500.2500 ####[facility] [address] [place], [address] GLU Normal 74-106 [facility] Comment on above: Result Comment: Canc elled via OM: Order cancelled - Patient discharged Performed By: #### L 100.0100, L500.2500 ####[facility] [address] [place], [address] Potassium Normal 3.5-5.1 [facility] Comment on above: Result Comment: Canc elled via OM: Order cancelled - Patient discharged Performed By: #### L 100.0100, L500.2500 ####[facility] [address] [place], [address] Basic Metabolic Profile (BMP) Normal 136-145 [facility] Comment on above: Result Comment: Canc elled via OM: Order cancelled - Patient discharged Performed By: #### L 100.0100, L500.2500 ####[facility] [address] [place], [address] Basophil percentageOrdered B y: Efewongbe Oleghe on 07-23-2024 Basophils/100 WBC (Bld) 0.7 % 0-1 [facility] CBC W/Diff, Automatedon 03- Absolute Neut Normal 2.0-7.7 [facility] Comment on above: Result Comment: Canc elled via OM: Order cancelled - Patient discharged Performed By: #### L 100.0100, L500.2500 ####[facility] [address] [place], [address] HCT Normal 40-54 [facility] Comment on above: Result Comment: Canc elled via OM: Order cancelled - Patient discharged Performed By: #### L 100.0100, L500.2500 ####[facility] [address] [facility] [address] HGB Normal 13.0-16.5 [facility] Comment on above: Result Comment: Canc elled via OM: Order cancelled - Patient discharged Performed By: #### L 100.0100, L500.2500 ####[facility] [address] [place], [address] MCH Normal 27.0-32.0 [facility] Comment on above: Result Comment: Canc elled via OM: Order cancelled - Patient discharged Performed By: #### L 100.0100, L500.2500 ####[facility] [address] [place], [address] MCHC Normal 32-36 [facility] Comment on above: Result Comment: Canc elled via OM: Order cancelled - Patient discharged Performed By: #### L 100.0100, L500.2500 ####[facility] [address] [place], [address] MCV Normal 80-94 [facility] Comment on above: Result Comment: Canc elled via OM: Order cancelled - Patient discharged Performed By: #### L 100.0100, L500.2500 ####[facility] [address] [place], [address] NEUT% Normal 47-70 [facility] Comment on above: Result Comment: Canc elled via OM: Order cancelled - Patient discharged Performed By: #### L 100.0100, L500.2500 ####[facility] [address] [place], [address] PLT Normal 150-450 [facility] Comment on above: Result Comment: Canc elled via OM: Order cancelled - Patient discharged Performed By: #### L 100.0100, L500.2500 ####[facility] [address] [place], [address] RBC Normal 4.6-6.2 [facility] Comment on above: Result Comment: Canc elled via OM: Order cancelled - Patient discharged Performed By: #### L 100.0100, L500.2500 ####[facility] [address] [place], [address] RDW CV Normal 11.6-14.6 [facility] Comment on above: Result Comment: Canc elled via OM: Order cancelled - Patient discharged Performed By: #### L 100.0100, L500.2500 ####[facility] [address] [place], [address] RDW SD Normal 35.1-43.9 [facility] Comment on above: Result Comment: Canc elled via OM: Order cancelled - Patient discharged Performed By: #### L 100.0100, L500.2500 ####[facility] [address] [place], [address] WBC Normal 4.4-11.0 [facility] Comment on above: Result Comment: Canc elled via OM: Order cancelled - Patient discharged Performed By: #### L 100.0100, L500.2500 ####[facility] [address] [place], [address] Carbon dioxide measurementOr dered By: Nando Wiggins on 07-23-2024 CO2 [Moles/Vol] 27.0 mmol/L 22.0-29.0 [facility] Chloride measurementOrdered By: Nando Wiggins on 07-23-2024 Chloride [Moles/Vol] 95 mmol/L Low 96-108 [facility] Comprehensive Metabolic Prof ilon 07-23-2024 ALB Normal 3.4-4.8 [facility] Comment on above: Result Comment: NOT DRAWN PATIENT DIDN'T COME TO LAB Performed By: #### L 500.4050 ####[facility] [address] [place], [address] ALK PHOS Normal 40-129 [facility] Comment on above: Result Comment: NOT DRAWN PATIENT DIDN'T COME TO LAB Performed By: #### L 500.4050 ####[facility] [address] [place], [address] ALT Normal <=46 [facility] Comment on above: Result Comment: NOT DRAWN PATIENT DIDN'T COME TO LAB Performed By: #### L 500.4050 ####[facility] [address] [place], [address] Anion Gap Normal 5-15 [facility] Comment on above: Result Comment: NOT DRAWN PATIENT DIDN'T COME TO LAB Performed By: #### L 500.4050 ####[facility] [address] [place], [address] AST Normal <=37 [facility] Comment on above: Result Comment: NOT DRAWN PATIENT DIDN'T COME TO LAB Performed By: #### L 500.4050 ####[facility] [address] [place], [address] Chloride Normal 96-108 [facility] Comment on above: Result Comment: NOT DRAWN PATIENT DIDN'T COME TO LAB Performed By: #### L 500.4050 ####[facility] [address] [place], [address] Sodium Normal 133-145 [facility] Comment on above: Result Comment: NOT DRAWN PATIENT DIDN'T COME TO LAB Performed By: #### L 500.4050 ####[facility] [address] [place], [address] T BILI Normal 0.00-1.30 [facility] Comment on above: Result Comment: NOT DRAWN PATIENT DIDN'T COME TO LAB Performed By: #### L 500.4050 ####[facility] [address] [place], [address] T PROT Normal 5.9-8.4 [facility] Comment on above: Result Comment: NOT DRAWN PATIENT DIDN'T COME TO LAB Performed By: #### L 500.4050 ####[facility] [address] [place], [address] Culture, Anaerobic Any Sourc reed 07-23-2024 CUAN Normal [facility] Comment on above: Performed By: #### M 100.2910, M100.4001, M100.2000 ####[facility] [address] [place], [address] Eosinophil percentageOrdered By: Nando Wiggins on 07-23-2024 Eosinophils/100 WBC (Bld) 1.3 % 0-5 [facility] Erythrocyte distribution wid th ratioOrdered By: Nando Wiggins on 07-23-2024 Erythrocyte distribution width (RBC) [Ratio] 17.1 % High 11.6-14.6 [facility] Erythrocyte distribution wid th standard deviationOrdered By: Nando Wiggins on 07-23-2024 Erythrocyte distribution width (RBC) [Ratio] 58.3 fl High 35.1-43.9 [facility] Glomerular filtration rate ( GFR) estimation/1.73 sq m using serum, plasma, or whole bOrdered By: Nando Wiggins on 07-23-2024 GFR/1.73 sq M.predicted among non-blacks MDRD (S/P/Bld) [Vol rate/Area] 13 mL/min/{1.73_m2} Low >60 [facility] Hematocrit Auto (Bld) [Volum e fraction]Ordered By: Nando Wiggins on 07-23-2024 Hematocrit (Bld) [Volume fraction] 26.1 % Low 40-54 [facility] Hemoglobin measurementOrdere d By: Nando Wiggins on 07-23-2024 Hemoglobin (Bld) [Mass/Vol] 7.8 g/dL Low 13.0-16.5 [facility] Immature granulocytes/100 WB C Auto (Bld)Ordered By: Nando Wiggins on 07-23-2024 Immature granulocytes/100 WBC (Bld) 2.100 % High 0.0-0.9 [facility] MCV (mean corpuscular volume ) determinationOrdered By: Debsalinaswolf Wiggins on 07-23-2024 MCV (RBC) [Entitic vol] 93.5 fL 80-94 [facility] Mean corpuscular hemoglobin (MCH) determinationOrdered By: biancasalinaswolf Wiggins on 07-23-2024 MCH (RBC) [Entitic mass] 28.0 pg 27.0-32.0 [facility] Monocyte percentageOrdered B y: Nando Wiggins on 07-23-2024 Monocytes/100 WBC (Bld) 7.7 % 0-10 [facility] Neutrophil percentageOrdered By: biancasalinaswolf Wiggins on 07-23-2024 Neutrophils/100 WBC (Bld) 70.9 % High 47-70 [facility] Platelet countOrdered By: Kathie biancalilian Wiggins on 07-23-2024 Platelets (Bld) [#/Vol] 451 10*3/uL High 150-450 [facility] RBC Auto (Bld) [#/Vol]Ordere d By: Nando Wiggins on 07-23-2024 RBC (Bld) [#/Vol] 2.79 10*6/uL Low 4.6-6.2 [facility] Serum creatinine measurement (mass/volume)Ordered By: Nando Wiggins on 07-23-2024 Creatinine [Mass/Vol] 4.11 mg/dL High 0.70-1.20 [facility] Serum glucose measurement (m ass/volume)Ordered By: Nando Wiggins on 07-23-2024 Glucose [Mass/Vol] 147 mg/dL High 70-99 [facility] Serum or plasma anion gap de termination (moles/volume)Ordered By: Nando Wiggins on 07-23-2024 Anion gap [Moles/Vol] 12 mmol/L 5-15 [facility] Serum or plasma calcium lilli urement (mass/volume)Ordered By: Nando Wiggins on 07-23-2024 Calcium [Mass/Vol] 8.4 mg/dL 7.6-11.0 [facility] Serum or plasma potassium me asurementOrdered By: Nando Wiggins on 07-23-2024 Potassium [Moles/Vol] 5.0 mmol/L 3.3-5.1 [facility] Serum or plasma sodium measu rement (moles/volume)Ordered By: Nando Wiggins on 07-23-2024 Sodium [Moles/Vol] 134 mmol/L 133-145 [facility] Serum or plasma urea nitroge n measurement (mass/volume)Ordered By: Nando Wiggins on 07-23-2024 Urea nitrogen [Mass/Vol] 60 mg/dL High 4-19 [facility] White blood cell (WBC) count Ordered By: Nando Wiggins on 07-23-2024 WBC (Bld) [#/Vol] 12.3 10*3/uL High 4.4-11.0 [facility] Wound Ctr History AND Physic ariella 07-23-2024 Wound Ctr History & Physical Normal [facility] Basic Metabolic Profile (BMP )on 07-22-2024 CL Normal 98-107 [facility] Comment on above: Result Comment: Canc elled via OM: Order cancelled - Patient discharged Performed By: #### L 100.0100, L500.2500 ####[facility] [address] [place], [address] EST GFR - AA Normal >60 [facility] Comment on above: Result Comment: Canc elled via OM: Order cancelled - Patient discharged Performed By: #### L 100.0100, L500.2500 ####[facility] [address] [place], [address] GAP Normal 5-15 [facility] Comment on above: Result Comment: Canc elled via OM: Order cancelled - Patient discharged Performed By: #### L 100.0100, L500.2500 ####[facility] [address] [place], [address] Basic Metabolic Profile (BMP) Normal 136-145 [facility] Comment on above: Result Comment: Canc elled via OM: Order cancelled - Patient discharged Performed By: #### L 100.0100, L500.2500 ####[facility] [address] [place], [address] CBC W/Diff, Automatedon 03-0 Absolute Neut Normal 2.0-7.7 [facility] Comment on above: Result Comment: Canc elled via OM: Order cancelled - Patient discharged Performed By: #### L 100.0100, L500.2500 ####[facility] [address] [place], [address] HCT Normal 40-54 [facility] Comment on above: Result Comment: Canc elled via OM: Order cancelled - Patient discharged Performed By: #### L 100.0100, L500.2500 ####[facility] [address] [place], [address] HGB Normal 13.0-16.5 [facility] Comment on above: Result Comment: Canc elled via OM: Order cancelled - Patient discharged Performed By: #### L 100.0100, L500.2500 ####[facility] [address] [place], [address] MCH Normal 27.0-32.0 [facility] Comment on above: Result Comment: Canc elled via OM: Order cancelled - Patient discharged Performed By: #### L 100.0100, L500.2500 ####[facility] [address] [place], [address] MCHC Normal 32-36 [facility] Comment on above: Result Comment: Canc elled via OM: Order cancelled - Patient discharged Performed By: #### L 100.0100, L500.2500 ####[facility] [address] [place], [address] MCV Normal 80-94 [facility] Comment on above: Result Comment: Canc elled via OM: Order cancelled - Patient discharged Performed By: #### L 100.0100, L500.2500 ####[facility] [address] [place], [address] NEUT% Normal 47-70 [facility] Comment on above: Result Comment: Canc elled via OM: Order cancelled - Patient discharged Performed By: #### L 100.0100, L500.2500 ####[facility] [address] [place], [address] PLT Normal 150-450 [facility] Comment on above: Result Comment: Canc elled via OM: Order cancelled - Patient discharged Performed By: #### L 100.0100, L500.2500 ####[facility] [address] [place], [address] RBC Normal 4.6-6.2 [facility] Comment on above: Result Comment: Canc elled via OM: Order cancelled - Patient discharged Performed By: #### L 100.0100, L500.2500 ####[facility] [address] [place], [address] RDW CV Normal 11.6-14.6 [facility] Comment on above: Result Comment: Canc elled via OM: Order cancelled - Patient discharged Performed By: #### L 100.0100, L500.2500 ####[facility] [address] [place], [address] RDW SD Normal 35.1-43.9 [facility] Comment on above: Result Comment: Canc elled via OM: Order cancelled - Patient discharged Performed By: #### L 100.0100, L500.2500 ####[facility] [address] [place], [address] WBC Normal 4.4-11.0 [facility] Comment on above: Result Comment: Canc elled via OM: Order cancelled - Patient discharged Performed By: #### L 100.0100, L500.2500 ####[facility] [address] [place], [address] Comprehensive Metabolic Prof ilon 07-22-2024 BUN Normal 7-18 [facility] Comment on above: Result Comment: NOT DRAWN PATIENT DIDN'T COME TO LAB Performed By: #### L 500.4050 ####[facility] [address] [place], [address] Result Comment: Canc elled via OM: Order cancelled - Patient discharged Performed By: #### L 100.0100, L500.2500 ####[facility] [address] [place], [address] BUN/CRE Normal 10-20 [facility] Comment on above: Result Comment: NOT DRAWN PATIENT DIDN'T COME TO LAB Performed By: #### L 500.4050 ####[facility] [address] [place], [address] Result Comment: Canc elled via OM: Order cancelled - Patient discharged Performed By: #### L 100.0100, L500.2500 ####[facility] [address] [place], [address] Calcium Normal 8.5-10.1 [facility] Comment on above: Result Comment: NOT DRAWN PATIENT DIDN'T COME TO LAB Performed By: #### L 500.4050 ####[facility] [address] [place], [address] Result Comment: Canc elled via OM: Order cancelled - Patient discharged Performed By: #### L 100.0100, L500.2500 ####[facility] [address] [place], [address] CO2 Normal 21.0-32.0 [facility] Comment on above: Result Comment: NOT DRAWN PATIENT DIDN'T COME TO LAB Performed By: #### L 500.4050 ####[facility] [address] [place], [address] Result Comment: Canc elled via OM: Order cancelled - Patient discharged Performed By: #### L 100.0100, L500.2500 ####[facility] [address] [place], [address] CREAT,SERUM Normal 0.70-1.30 [facility] Comment on above: Result Comment: NOT DRAWN PATIENT DIDN'T COME TO LAB Performed By: #### L 500.4050 ####[facility] [address] [place], [address] Result Comment: Canc elled via OM: Order cancelled - Patient discharged Performed By: #### L 100.0100, L500.2500 ####[facility] [address] [place], [address] eGFR Normal >60 [facility] Comment on above: Result Comment: NOT DRAWN PATIENT DIDN'T COME TO LAB Performed By: #### L 500.4050 ####[facility] [address] [place], [address] Result Comment: Canc elled via OM: Order cancelled - Patient discharged Performed By: #### L 100.0100, L500.2500 ####[facility] [address] [place], [address] GLU Normal 74-106 [facility] Comment on above: Result Comment: NOT DRAWN PATIENT DIDN'T COME TO LAB Performed By: #### L 500.4050 ####[facility] [address] [place], [address] Result Comment: Canc elled via OM: Order cancelled - Patient discharged Performed By: #### L 100.0100, L500.2500 ####[facility] [address] [place], [address] Potassium Normal 3.5-5.1 [facility] Comment on above: Result Comment: NOT DRAWN PATIENT DIDN'T COME TO LAB Performed By: #### L 500.4050 ####[facility] [address] [place], [address] Result Comment: Canc elled via OM: Order cancelled - Patient discharged Performed By: #### L 100.0100, L500.2500 ####[facility] [address] [place], [address] Culture, Blood (WB)on 2024 CUB No growth in 5 days. Normal [facility] Comment on above: Performed By: #### M 200.1000 ####[facility] [address] [place], [address] Basic Metabolic Profile (BMP )on 07-21-2024 BUN Normal 7-18 [facility] Comment on above: Result Comment: Canc elled via OM: Order cancelled - Patient discharged Performed By: #### L 100.0100, L500.2500 ####[facility] [address] [place], [address] BUN/CRE Normal 10-20 [facility] Comment on above: Result Comment: Canc elled via OM: Order cancelled - Patient discharged Performed By: #### L 100.0100, L500.2500 ####[facility] [address] [place], [address] Calcium Normal 8.5-10.1 [facility] Comment on above: Result Comment: Canc elled via OM: Order cancelled - Patient discharged Performed By: #### L 100.0100, L500.2500 ####[facility] [address] [place], [address] CL Normal 98-107 [facility] Comment on above: Result Comment: Canc elled via OM: Order cancelled - Patient discharged Performed By: #### L 100.0100, L500.2500 ####[facility] [address] [place], [address] CO2 Normal 21.0-32.0 [facility] Comment on above: Result Comment: Canc elled via OM: Order cancelled - Patient discharged Performed By: #### L 100.0100, L500.2500 ####[facility] [address] [place], [address] CREAT,SERUM Normal 0.70-1.30 [facility] Comment on above: Result Comment: Canc elled via OM: Order cancelled - Patient discharged Performed By: #### L 100.0100, L500.2500 ####[facility] [address] [place], [address] eGFR Normal >60 [facility] Comment on above: Result Comment: Canc elled via OM: Order cancelled - Patient discharged Performed By: #### L 100.0100, L500.2500 ####[facility] [address] [place], [address] EST GFR - AA Normal >60 [facility] Comment on above: Result Comment: Canc elled via OM: Order cancelled - Patient discharged Performed By: #### L 100.0100, L500.2500 ####[facility] [address] [place], [address] GAP Normal 5-15 [facility] Comment on above: Result Comment: Canc elled via OM: Order cancelled - Patient discharged Performed By: #### L 100.0100, L500.2500 ####[facility] [address] [place], [address] GLU Normal 74-106 [facility] Comment on above: Result Comment: Canc elled via OM: Order cancelled - Patient discharged Performed By: #### L 100.0100, L500.2500 ####[facility] [address] [place], [address] Potassium Normal 3.5-5.1 [facility] Comment on above: Result Comment: Canc elled via OM: Order cancelled - Patient discharged Performed By: #### L 100.0100, L500.2500 ####[facility] [address] [place], [address] Basic Metabolic Profile (BMP) Normal 136-145 [facility] Comment on above: Result Comment: Canc elled via OM: Order cancelled - Patient discharged Performed By: #### L 100.0100, L500.2500 ####[facility] [address] [place], [address] CBC W/Diff, Automatedon 03-0 -2024 Absolute Neut Normal 2.0-7.7 [facility] Comment on above: Result Comment: Canc elled via OM: Order cancelled - Patient discharged Performed By: #### L 100.0100, L500.2500 ####[facility] [address] [place], [address] HCT Normal 40-54 [facility] Comment on above: Result Comment: Canc elled via OM: Order cancelled - Patient discharged Performed By: #### L 100.0100, L500.2500 ####[facility] [address] [place], [address] HGB Normal 13.0-16.5 [facility] Comment on above: Result Comment: Canc elled via OM: Order cancelled - Patient discharged Performed By: #### L 100.0100, L500.2500 ####[facility] [address] [place], [address] MCH Normal 27.0-32.0 [facility] Comment on above: Result Comment: Canc elled via OM: Order cancelled - Patient discharged Performed By: #### L 100.0100, L500.2500 ####[facility] [address] [place], [address] MCHC Normal 32-36 [facility] Comment on above: Result Comment: Canc elled via OM: Order cancelled - Patient discharged Performed By: #### L 100.0100, L500.2500 ####[facility] [address] [place], [address] MCV Normal 80-94 [facility] Comment on above: Result Comment: Canc elled via OM: Order cancelled - Patient discharged Performed By: #### L 100.0100, L500.2500 ####[facility] [address] [place], [address] NEUT% Normal 47-70 [facility] Comment on above: Result Comment: Canc elled via OM: Order cancelled - Patient discharged Performed By: #### L 100.0100, L500.2500 ####[facility] [address] [place], [address] PLT Normal 150-450 [facility] Comment on above: Result Comment: Canc elled via OM: Order cancelled - Patient discharged Performed By: #### L 100.0100, L500.2500 ####[facility] [address] [place], [address] RBC Normal 4.6-6.2 [facility] Comment on above: Result Comment: Canc elled via OM: Order cancelled - Patient discharged Performed By: #### L 100.0100, L500.2500 ####[facility] [address] [place], [address] RDW CV Normal 11.6-14.6 [facility] Comment on above: Result Comment: Canc elled via OM: Order cancelled - Patient discharged Performed By: #### L 100.0100, L500.2500 ####[facility] [address] [place], [address] RDW SD Normal 35.1-43.9 [facility] Comment on above: Result Comment: Canc elled via OM: Order cancelled - Patient discharged Performed By: #### L 100.0100, L500.2500 ####[facility] [address] [place], [address] WBC Normal 4.4-11.0 [facility] Comment on above: Result Comment: Canc elled via OM: Order cancelled - Patient discharged Performed By: #### L 100.0100, L500.2500 ####[facility] [address] [place], [address] Culture, Anaerobic Any Sourc reed 07-21-2024 CUAN UNK UNK Post-lavage Right lower extremity No anaerobic bacteria isolated. [facility] Comment on above: Performed By: #### M 100.2000, M100.3000, M100.4001 ####[facility] [address] [place], [address] CUAN UNK UNK Pre-lavage right lower extremity - collected in [place] No anaerobic bacteria isolated. [facility] Comment on above: Performed By: #### M 100.4001, M100.3000, M100.2000 ####[facility] [address] [place], [address] Culture, Blood (WB)on 2024 CUB No growth in 5 days. Normal [facility] Comment on above: Performed By: #### M 200.1000 ####[facility] [address] [place], [address] Absolute lymphocyte countOrd ered By: Jayla Osuna on 07-20-2024 Lymphocytes Auto (Unsp spec) [#/Vol] 1.89 10*3/uL 0.83-4.51 [facility] Automated lymphocyte count a s percentage of total leukocytesOrdered By: Jayla Osuna on 07-20-2024 Lymphocytes/100 WBC Auto (Unsp spec) 14.9 % Low 19-41 [facility] BUN/creatinine ratioOrdered By: Margarette Godinez on 07-20-2024 Urea nitrogen/Creatinine [Mass ratio] 16.1 mg/mg 10-20 [facility] Basic Metabolic Profile (BMP )on 07-20-2024 Anion gap [Moles/Vol] 12 mmol/L Normal 5-15 [facility] Comment on above: Performed By: #### L 500.2500 ####[facility] [address] [place], [address] BUN/CRE 16.1 RATIO Normal 10- [facility] Comment on above: Performed By: #### L 500.2500 ####[facility] [address] [place], [address] Calcium [Mass/Vol] 8.7 mg/dL Normal 7.6-11.0 [facility] Comment on above: Performed By: #### L 500.2500 ####[facility] [address] [place], [address] Chloride [Moles/Vol] 97 mmol/L Normal 96-108 [facility] Comment on above: Performed By: #### L 500.2500 ####[facility] [address] [place], [address] CO2 [Moles/Vol] 22.0 mmol/L Normal 22.0-29.0 [facility] Comment on above: Performed By: #### L 500.2500 ####[facility] [address] [place], [address] Creatinine [Mass/Vol] 4.24 mg/dL High 0.70-1.20 [facility] Comment on above: Performed By: #### L 500.2500 ####[facility] [address] [place], [address] ECRCL 13.28 ml/min Normal [facility] Comment on above: Performed By: #### L 500.2500 ####[facility] [address] [place], [address] GFR/1.73 sq M.predicted among non-blacks MDRD (S/P/Bld) [Vol rate/Area] 13 mL/min/{1.73_m2} Low >60 [facility] Comment on above: Result Comment: mL/m in/1.73m2 CKD-EPI Creatinine Equation (2020) Performed By: #### L 500.2500 ####[facility] [address] [place], [address] Glucose [Mass/Vol] 153 mg/dL High 70-99 [facility] Comment on above: Performed By: #### L 500.2500 ####[facility] [address] [place], [address] Potassium [Moles/Vol] 5.5 mmol/L High 3.3-5.1 [facility] Comment on above: Performed By: #### L 500.2500 ####[facility] [address] [place], [address] Sodium [Moles/Vol] 131 mmol/L Low 133-145 [facility] Comment on above: Performed By: #### L 500.2500 ####[facility] [address] [place], [address] Urea nitrogen [Mass/Vol] 68 mg/dL High 4-19 [facility] Comment on above: Performed By: #### L 500.2500 ####[facility] [address] [place], [address] BUN/CRE 16.1 RATIO Normal 10-20 [facility] Comment on above: Result Comment: WILL REORDER Performed By: #### L 500.2500, L100.0100 ####[facility] [address] [place], [address] Creatinine [Mass/Vol] 4.15 mg/dL High 0.70-1.20 [facility] Comment on above: Result Comment: WILL REORDER Performed By: #### L 500.2500, L100.0100 ####[facility] [address] [place], [address] ECRCL 13.57 ml/min Normal [facility] Comment on above: Result Comment: WILL REORDER Performed By: #### L 500.2500, L100.0100 ####[facility] [address] [place], [address] GFR/1.73 sq M.predicted among non-blacks MDRD (S/P/Bld) [Vol rate/Area] 13 mL/min/{1.73_m2} Low >60 [facility] Comment on above: Result Comment: WILL REORDERmL/min/1.73m2 CKD-EPI Creatinine Equation (2020) Performed By: #### L 500.2500, L100.0100 ####[facility] [address] [place], [address] Glucose [Mass/Vol] 155 mg/dL High 70-99 [facility] Comment on above: Result Comment: WILL REORDER Performed By: #### L 500.2500, L100.0100 ####[facility] [address] [place], [address] Urea nitrogen [Mass/Vol] 67 mg/dL High 4-19 [facility] Comment on above: Result Comment: WILL REORDER Performed By: #### L 500.2500, L100.0100 ####[facility] [address] [place], [address] Calcium Normal 8.5-10.1 [facility] Comment on above: Result Comment: WILL REORDER Performed By: #### L 500.2500, L100.0100 ####[facility] [address] [place], [address] CL Normal 98-107 [facility] Comment on above: Result Comment: WILL REORDER Performed By: #### L 500.2500, L100.0100 ####[facility] [address] [place], [address] CO2 Normal 21.0-32.0 [facility] Comment on above: Result Comment: WILL REORDER Performed By: #### L 500.2500, L100.0100 ####[facility] [address] [place], [address] EST GFR - AA Normal >60 [facility] Comment on above: Result Comment: WILL REORDER Performed By: #### L 500.2500, L100.0100 ####[facility] [address] [place], [address] GAP Normal 5-15 [facility] Comment on above: Result Comment: WILL REORDER Performed By: #### L 500.2500, L100.0100 ####[facility] [address] [place], [address] Potassium Normal 3.5-5.1 [facility] Comment on above: Result Comment: WILL REORDER Performed By: #### L 500.2500, L100.0100 ####[facility] [address] [place], [address] Basic Metabolic Profile (BMP) Normal 136-145 [facility] Comment on above: Result Comment: WILL REORDER Performed By: #### L 500.2500, L100.0100 ####[facility] [address] [place], [address] Basophil percentageOrdered B y: Jayla Osuna on 07-20-2024 Basophils/100 WBC (Bld) 0.4 % 0-1 [facility] Bedside Glucoseon 07-20-2024 FINGERSTICK GLU 91 mg/dL Normal 74-106 [facility] Comment on above: Result Comment: FANG GEMENT OF PATIENT CARE PER NURSING PROTOCOL Performed By: #### L 501.080 ####[facility] [address] [place], [address] FINGERSTICK GLU 98 mg/dL Normal 74-106 [facility] Comment on above: Result Comment: FANG GEMENT OF PATIENT CARE PER NURSING PROTOCOL Performed By: #### L 501.080 ####[facility] [address] [place], [address] FINGERSTICK GLU 159 mg/dL High 74-106 [facility] Comment on above: Result Comment: FANG GEMENT OF PATIENT CARE PER NURSING PROTOCOL Performed By: #### L 501.080 ####[facility] [address] [place], [address] FINGERSTICK GLU 156 mg/dL High 74-106 [facility] Comment on above: Result Comment: FANG GEMENT OF PATIENT CARE PER NURSING PROTOCOL Performed By: #### L 501.080 ####[facility] [address] [place], [address] CBC W/Diff, Automatedon 06-24 Absolute Lymph 1.89 X10 3/uL Normal 0.83-4.51 [facility] Comment on above: Performed By: #### L 500.2500, L100.0100 ####[facility] [address] [place], [address] Absolute Neut 9.3 X10 3/uL High 2.0-7.7 [facility] Comment on above: Performed By: #### L 500.2500, L100.0100 ####[facility] [address] [place], [address] Basophils/100 WBC (Bld) 0.4 % Normal 0-1 [facility] Comment on above: Performed By: #### L 500.2500, L100.0100 ####[facility] [address] [place], [address] Eosinophils/100 WBC (Bld) 1.7 % Normal 0-5 [facility] Comment on above: Performed By: #### L 500.2500, L100.0100 ####[facility] [address] [place], [address] Erythrocyte distribution width (RBC) [Ratio] 17.6 % High 11.6-14.6 [facility] Comment on above: Performed By: #### L 500.2500, L100.0100 ####[facility] [address] [place], [address] Hematocrit (Bld) [Volume fraction] 25.2 % Low 40-54 [facility] Comment on above: Performed By: #### L 500.2500, L100.0100 ####[facility] [address] [place], [address] Hemoglobin (Bld) [Mass/Vol] 7.6 g/dL Low 13.0-16.5 [facility] Comment on above: Performed By: #### L 500.2500, L100.0100 ####[facility] [address] [place], [address] IG% 2.300 High 0.0-0.9 [facility] Comment on above: Result Comment: IG% - Immature Granulocytes (promyelocytes, myelocytes andmetamyelocytes) > 1% indicates that a LEFT SHIFT is Present. Performed By: #### L 500.2500, L100.0100 ####[facility] [address] [place], [address] Lymphocytes/100 WBC (Bld) 14.9 % Low 19-41 [facility] Comment on above: Performed By: #### L 500.2500, L100.0100 ####[facility] [address] [place], [address] MCH (RBC) [Entitic mass] 28.1 pg Normal 27.0-32.0 [facility] Comment on above: Performed By: #### L 500.2500, L100.0100 ####[facility] [address] [place], [address] MCHC (RBC) [Mass/Vol] 30.2 g/dL Low 32-36 [facility] Comment on above: Performed By: #### L 500.2500, L100.0100 ####[facility] [address] [place], [address] MCV (RBC) [Entitic vol] 93.3 fL Normal 80-94 [facility] Comment on above: Performed By: #### L 500.2500, L100.0100 ####[facility] [address] [place], [address] Monocytes/100 WBC (Bld) 7.6 % Normal 0-10 [facility] Comment on above: Performed By: #### L 500.2500, L100.0100 ####[facility] [address] [place], [address] Neutrophils/100 WBC (Bld) 73.1 % High 47-70 [facility] Comment on above: Performed By: #### L 500.2500, L100.0100 ####[facility] [address] [place], [address] Nucleated RBC (Bld) [#/Vol] 0 10*3/uL Normal 0-5 [facility] Comment on above: Performed By: #### L 500.2500, L100.0100 ####[facility] [address] [place], [address] Platelet mean volume (Bld) [Entitic vol] 10.4 fL Normal 6.2-12.0 [facility] Comment on above: Performed By: #### L 500.2500, L100.0100 ####[facility] [address] [place], [address] Platelets (Bld) [#/Vol] 438 10*3/uL Normal 150-450 [facility] Comment on above: Performed By: #### L 500.2500, L100.0100 ####[facility] [address] [place], [address] RBC (Bld) [#/Vol] 2.70 10*6/uL Low 4.6-6.2 [facility] Comment on above: Performed By: #### L 500.2500, L100.0100 ####[facility] [address] [place], [address] RDW SD 60.7 fl High 35.1-43.9 [facility] Comment on above: Performed By: #### L 500.2500, L100.0100 ####[facility] [address] [place], [address] WBC (Bld) [#/Vol] 12.7 10*3/uL High 4.4-11.0 [facility] Comment on above: Performed By: #### L 500.2500, L100.0100 ####[facility] [address] [place], [address] Carbon dioxide measurementOr dered By: Margarette Godinez on 07-20-2024 CO2 [Moles/Vol] 22.0 mmol/L 22.0-29.0 [facility] Chloride measurementOrdered By: Margarette Godinez on 07-20-2024 Chloride [Moles/Vol] 97 mmol/L 96-108 [facility] Eosinophil percentageOrdered By: Jayla Osuna on 07-20-2024 Eosinophils/100 WBC (Bld) 1.7 % 0-5 [facility] Erythrocyte distribution wid th ratioOrdered By: Jayla Osuna on 07-20-2024 Erythrocyte distribution width (RBC) [Ratio] 17.6 % High 11.6-14.6 [facility] Erythrocyte distribution wid th standard deviationOrdered By: Jayla Osuna on 07-20-2024 Erythrocyte distribution width (RBC) [Ratio] 60.7 fl High 35.1-43.9 [facility] Glomerular filtration rate ( GFR) estimation/1.73 sq m using serum, plasma, or whole bOrdered By: Margarette Godinez on 07-20-2024 GFR/1.73 sq M.predicted among non-blacks MDRD (S/P/Bld) [Vol rate/Area] 13 mL/min/{1.73_m2} Low >60 [facility] Gl[facility] deOrdered By: Margarette Godinez on 07-20-2024 Glucose [Mass/Vol] 91 mg/dL 74-106 [facility] Hematocrit Auto (Bld) [Volum e fraction]Ordered By: Jayla Osuna on 07-20-2024 Hematocrit (Bld) [Volume fraction] 25.2 % Low 40-54 [facility] Hemoglobin measurementOrdere d By: Jayla Osuna on 07-20-2024 Hemoglobin (Bld) [Mass/Vol] 7.6 g/dL Low 13.0-16.5 [facility] Immature granulocytes/100 WB C Auto (Bld)Ordered By: Jayla Osuna on 07-20-2024 Immature granulocytes/100 WBC (Bld) 2.300 % High 0.0-0.9 [facility] MCV (mean corpuscular volume ) determinationOrdered By: Jayla Osuna on 07-20-2024 MCV (RBC) [Entitic vol] 93.3 fL 80-94 [facility] Mean corpuscular hemoglobin (MCH) determinationOrdered By: Jayla Osuna on 07-20-2024 MCH (RBC) [Entitic mass] 28.1 pg 27.0-32.0 [facility] [facility] Monocyte percentageOrdered B y: Jayla Osuna on 07-20-2024 Monocytes/100 WBC (Bld) 7.6 % 0-10 [facility] Neutrophil percentageOrdered By: Jayla Osuna on 07-20-2024 Neutrophils/100 WBC (Bld) 73.1 % High 47-70 [facility] Platelet countOrdered By: Kristofer Osuna on 07-20-2024 Platelets (Bld) [#/Vol] 438 10*3/uL 150-450 [facility] RBC Auto (Bld) [#/Vol]Ordere d By: Jayla Osuna on 07-20-2024 RBC (Bld) [#/Vol] 2.70 10*6/uL Low 4.6-6.2 [facility] Serum creatinine measurement (mass/volume)Ordered By: Margarette Godinez on 07-20-2024 Creatinine [Mass/Vol] 4.24 mg/dL High 0.70-1.20 [facility] Serum glucose measurement (m ass/volume)Ordered By: Margarette Godinez on 07-20-2024 Glucose [Mass/Vol] 153 mg/dL High 70-99 [facility] Serum or plasma anion gap de termination (moles/volume)Ordered By: Margarette Godinez on 07-20-2024 Anion gap [Moles/Vol] 12 mmol/L 5-15 [facility] Serum or plasma calcium lilli urement (mass/volume)Ordered By: Margarette Godinez on 07-20-2024 Calcium [Mass/Vol] 8.7 mg/dL 7.6-11.0 [facility] Serum or plasma potassium me asurementOrdered By: Margarette Godinez on 07-20-2024 Potassium [Moles/Vol] 5.5 mmol/L High 3.3-5.1 [facility] Serum or plasma sodium measu rement (moles/volume)Ordered By: Margarette Godinez on 07-20-2024 Sodium [Moles/Vol] 131 mmol/L Low 133-145 [facility] Serum or plasma urea nitroge n measurement (mass/volume)Ordered By: Margarette Godinez on 07-20-2024 Urea nitrogen [Mass/Vol] 68 mg/dL High 4-19 [facility] White blood cell (WBC) count Ordered By: Jayla Osnua on 07-20-2024 WBC (Bld) [#/Vol] 12.7 10*3/uL High 4.4-11.0 [facility] Basic Metabolic Profile (BMP )on 07-19-2024 Anion gap [Moles/Vol] 17 mmol/L High 5-15 [facility] Comment on above: Performed By: #### L 500.2500 ####[facility] [address] [place], [address] BUN/CRE 14.3 RATIO Normal 10-20 [facility] Comment on above: Performed By: #### L 500.2500 ####[facility] [address] [place], [address] Calcium [Mass/Vol] 8.7 mg/dL Normal 7.6-11.0 [facility] Comment on above: Performed By: #### L 500.2500 ####[facility] [address] [place], [address] Chloride [Moles/Vol] 95 mmol/L Low 96-108 [facility] Comment on above: Performed By: #### L 500.2500 ####[facility] [address] [place], [address] CO2 [Moles/Vol] 19.8 mmol/L Low 22.0-29.0 [facility] Comment on above: Performed By: #### L 500.2500 ####[facility] [address] [place], [address] Creatinine [Mass/Vol] 5.60 mg/dL High 0.70-1.20 [facility] Comment on above: Performed By: #### L 500.2500 ####[facility] [address] [place], [address] ECRCL 10.06 ml/min Normal [facility] Comment on above: Performed By: #### L 500.2500 ####[facility] [address] [place], [address] GFR/1.73 sq M.predicted among non-blacks MDRD (S/P/Bld) [Vol rate/Area] 9 mL/min/{1.73_m2} Low >60 [facility] Comment on above: Result Comment: mL/m in/1.73m2 CKD-EPI Creatinine Equation (2020) Performed By: #### L 500.2500 ####[facility] [address] [place], [address] Glucose [Mass/Vol] 153 mg/dL High 70-99 [facility] Comment on above: Performed By: #### L 500.2500 ####[facility] [address] [place], [address] Potassium [Moles/Vol] 5.9 mmol/L High 3.3-5.1 [facility] Comment on above: Performed By: #### L 500.2500 ####[facility] [address] [place], [address] Sodium [Moles/Vol] 131 mmol/L Low 133-145 [facility] Comment on above: Performed By: #### L 500.2500 ####[facility] [address] [place], [address] Urea nitrogen [Mass/Vol] 80 mg/dL High 4-19 [facility] Comment on above: Performed By: #### L 500.2500 ####[facility] [address] [place], [address] Anion gap [Moles/Vol] 13 mmol/L Normal 5-15 [facility] Comment on above: Performed By: #### L 500.2500 ####[facility] [address] [place], [address] ECRCL 12.41 ml/min Normal [facility] Comment on above: Performed By: #### L 500.2500 ####[facility] [address] [place], [address] GFR/1.73 sq M.predicted among non-blacks MDRD (S/P/Bld) [Vol rate/Area] 12 mL/min/{1.73_m2} Low >60 [facility] Comment on above: Performed By: #### L 500.2500 ####[facility] [address] [place], [address] BUN/CRE 13.7 RATIO Normal 10-20 [facility] Comment on above: Performed By: #### L 500.2500 ####[facility] [address] [place], [address] Calcium [Mass/Vol] 8.9 mg/dL Normal 7.6-11.0 [facility] Comment on above: Performed By: #### L 500.2500 ####[facility] [address] [place], [address] Creatinine [Mass/Vol] 4.6 mg/dL High 0.8-1.3 [facility] Comment on above: Performed By: #### L 500.2500 ####[facility] [address] [place], [address] Glucose [Mass/Vol] 130 mg/dL High 70-99 [facility] Comment on above: Performed By: #### L 500.2500 ####[facility] [address] [place], [address] Urea nitrogen [Mass/Vol] 63 mg/dL High 4-19 [facility] Comment on above: Performed By: #### L 500.2500 ####[facility] [address] [place], [address] Chloride [Moles/Vol] 97 mmol/L Normal 96-108 [facility] Comment on above: Performed By: #### L 500.2500 ####[facility] [address] [place], [address] CO2 [Moles/Vol] 22.7 mmol/L Normal 22.0-29.0 [facility] Comment on above: Performed By: #### L 500.2500 ####[facility] [address] [place], [address] Potassium [Moles/Vol] 5.0 mmol/L Normal 3.3-5.1 [facility] Comment on above: Performed By: #### L 500.2500 ####[facility] [address] [place], [address] Sodium [Moles/Vol] 133 mmol/L Normal 133-145 [facility] Comment on above: Performed By: #### L 500.2500 ####[facility] [address] [place], [address] Glucose [Mass/Vol] 165 mg/dL High 70-99 [facility] Comment on above: Order Comment: REALVERTO ERED Result Comment: MARIS RAYA AMENDED REPORT 07/19/24 1223 GLU previously reported as: 173 H mg/dL Performed By: #### L 100.0100, L500.2500 ####[facility] [address] [place], [address] Urea nitrogen [Mass/Vol] 84 mg/dL High 4-19 [facility] Comment on above: Order Comment: REALVERTO ERED Result Comment: REKEVEN RAYA AMENDED REPORT 07/19/24 1223 BUN previously reported as: 83 H mg/dL Performed By: #### L 100.0100, L500.2500 ####[facility] [address] [place], [address] BUN/CRE 13.7 RATIO Normal 10-20 [facility] Comment on above: Order Comment: WILL REORDER Result Comment: WILL REORDER AMENDED REPORT 07/19/24 1106 BUN/CRE previously reported as: 13.5 RATIO Performed By: #### L 100.0100, L500.2500 ####[facility] [address] [place], [address] Creatinine [Mass/Vol] 4.6 mg/dL High 0.8-1.3 [facility] Comment on above: Order Comment: WILL REORDER Result Comment: WILL REORDER AMENDED REPORT 07/19/24 1106 CREAT,SERUM previously reported as: 4.5 H mg/dL Performed By: #### L 100.0100, L500.2500 ####[facility] [address] [place], [address] ECRCL 12.41 ml/min Normal [facility] Comment on above: Order Comment: WILL REORDER Result Comment: WILL REORDER AMENDED REPORT 07/19/24 1106 Estimated CRCL previously reported as: 12.65 ml/min Performed By: #### L 100.0100, L500.2500 ####[facility] [address] [place], [address] Glucose [Mass/Vol] 130 mg/dL High 70-99 [facility] Comment on above: Order Comment: WILL REORDER Result Comment: WILL REORDER AMENDED REPORT 07/19/24 1106 GLU previously reported as: 157 H mg/dL Performed By: #### L 100.0100, L500.2500 ####[facility] [address] [place], [address] Urea nitrogen [Mass/Vol] 63 mg/dL High 4-19 [facility] Comment on above: Order Comment: WILL REORDER Result Comment: WILL REORDER AMENDED REPORT 07/19/24 1106 BUN previously reported as: 60 H mg/dL Performed By: #### L 100.0100, L500.2500 ####[facility] [address] [place], [address] BUN/CRE 15.2 RATIO Normal 10-20 [facility] Comment on above: Order Comment: REORD ERED Result Comment: REOR DERED Performed By: #### L 100.0100, L500.2500 ####[facility] [address] [place], [address] Creatinine [Mass/Vol] 5.5 mg/dL High 0.8-1.3 [facility] Comment on above: Order Comment: REORD ERED Result Comment: REOR DERED Performed By: #### L 100.0100, L500.2500 ####[facility] [address] [place], [address] ECRCL 10.38 ml/min Normal [facility] Comment on above: Order Comment: REORD ERED Result Comment: REOR DERED Performed By: #### L 100.0100, L500.2500 ####[facility] [address] [place], [address] GFR/1.73 sq M.predicted among non-blacks MDRD (S/P/Bld) [Vol rate/Area] 9 mL/min/{1.73_m2} Low >60 [facility] Comment on above: Order Comment: REORD ERED Result Comment: REOR DEREDmL/min/1.73m2 CKD-EPI Creatinine Equation (2020) Performed By: #### L 100.0100, L500.2500 ####[facility] [address] [place], [address] Calcium Normal 8.5-10.1 [facility] Comment on above: Order Comment: REORD ERED Result Comment: REOR DERED Performed By: #### L 100.0100, L500.2500 ####[facility] [address] [place], [address] CL Normal 98-107 [facility] Comment on above: Order Comment: REORD ERED Result Comment: REOR DERED Performed By: #### L 100.0100, L500.2500 ####[facility] [address] [place], [address] CO2 Normal 21.0-32.0 [facility] Comment on above: Order Comment: REORD ERED Result Comment: REOR DERED Performed By: #### L 100.0100, L500.2500 ####[facility] [address] [place], [address] EST GFR - AA Normal >60 [facility] Comment on above: Order Comment: REORD ERED Result Comment: REOR DERED Performed By: #### L 100.0100, L500.2500 ####[facility] [address] [place], [address] GAP Normal 5-15 [facility] Comment on above: Order Comment: REORD ERED Result Comment: REOR DERED Performed By: #### L 100.0100, L500.2500 ####[facility] [address] [place], [address] Potassium Normal 3.5-5.1 [facility] Comment on above: Order Comment: REORD ERED Result Comment: REOR DERED Performed By: #### L 100.0100, L500.2500 ####[facility] [address] [place], [address] Basic Metabolic Profile (BMP) Normal 136-145 [facility] Comment on above: Order Comment: REORD ERED Result Comment: REOR DERED Performed By: #### L 100.0100, L500.2500 ####[facility] [address] [place], [address] Bedside Glucoseon 07-19-2024 FINGERSTICK GLU 135 mg/dL High 74-106 [facility] Comment on above: Result Comment: FANG VAZQUEZ OF PATIENT CARE PER NURSING PROTOCOL Performed By: #### L 501.080 ####[facility] [address] [place], [address] FINGERSTICK GLU 227 mg/dL High 74-106 [facility] Comment on above: Result Comment: FANG GEMENT OF PATIENT CARE PER NURSING PROTOCOL Performed By: #### L 501.080 ####[facility] [address] [place], [address] FINGERSTICK GLU 120 mg/dL High 74-106 [facility] Comment on above: Result Comment: FANG GEMENT OF PATIENT CARE PER NURSING PROTOCOL Performed By: #### L 501.080 ####[facility] [address] [place], [address] CBC W/Diff, Automatedon 06-24 Absolute Lymph 2.07 X10 3/uL Normal 0.83-4.51 [facility] Comment on above: Performed By: #### L 100.0100, L500.2500 ####[facility] [address] [place], [address] Absolute Neut 13.1 X10 3/uL High 2.0-7.7 [facility] Comment on above: Performed By: #### L 100.0100, L500.2500 ####[facility] [address] [place], [address] Basophils/100 WBC (Bld) 0.5 % Normal 0-1 [facility] Comment on above: Performed By: #### L 100.0100, L500.2500 ####[facility] [address] [place], [address] Eosinophils/100 WBC (Bld) 1.6 % Normal 0-5 [facility] Comment on above: Performed By: #### L 100.0100, L500.2500 ####[facility] [address] [place], [address] Erythrocyte distribution width (RBC) [Ratio] 17.7 % High 11.6-14.6 [facility] Comment on above: Performed By: #### L 100.0100, L500.2500 ####[facility] [address] [place], [address] Hematocrit (Bld) [Volume fraction] 25.5 % Low 40-54 [facility] Comment on above: Performed By: #### L 100.0100, L500.2500 ####[facility] [address] [place], [address] Hemoglobin (Bld) [Mass/Vol] 7.7 g/dL Low 13.0-16.5 [facility] Comment on above: Performed By: #### L 100.0100, L500.2500 ####[facility] [address] [place], [address] IG% 2.300 High 0.0-0.9 [facility] Comment on above: Result Comment: IG% - Immature Granulocytes (promyelocytes, myelocytes andmetamyelocytes) > 1% indicates that a LEFT SHIFT is Present. Performed By: #### L 100.0100, L500.2500 ####[facility] [address] [place], [address] Lymphocytes/100 WBC (Bld) 12.1 % Low 19-41 [facility] Comment on above: Performed By: #### L 100.0100, L500.2500 ####[facility] [address] [place], [address] MCH (RBC) [Entitic mass] 28.1 pg Normal 27.0-32.0 [facility] Comment on above: Performed By: #### L 100.0100, L500.2500 ####[facility] [address] [place], [address] MCHC (RBC) [Mass/Vol] 30.2 g/dL Low 32-36 [facility] Comment on above: Performed By: #### L 100.0100, L500.2500 ####[facility] [address] [place], [id number] MCV (RBC) [Entitic vol] 93.1 fL Normal 80-94 [facility] Comment on above: Performed By: #### L 100.0100, L500.2500 ####[facility] [address] [place], [address] Monocytes/100 WBC (Bld) 7.1 % Normal 0-10 [facility] Comment on above: Performed By: #### L 100.0100, L500.2500 ####[facility] [address] [place], [address] Neutrophils/100 WBC (Bld) 76.4 % High 47-70 [facility] Comment on above: Performed By: #### L 100.0100, L500.2500 ####[facility] [address] [place], [address] Nucleated RBC (Bld) [#/Vol] 0 10*3/uL Normal 0-5 [facility] Comment on above: Performed By: #### L 100.0100, L500.2500 ####[facility] [address] [place], [address] Platelet mean volume (Bld) [Entitic vol] 10.6 fL Normal 6.2-12.0 [facility] Comment on above: Performed By: #### L 100.0100, L500.2500 ####[facility] [address] [place], [address] Platelets (Bld) [#/Vol] 467 10*3/uL High 150-450 [facility] Comment on above: Performed By: #### L 100.0100, L500.2500 ####[facility] [address] [place], [address] RBC (Bld) [#/Vol] 2.74 10*6/uL Low 4.6-6.2 [facility] Comment on above: Performed By: #### L 100.0100, L500.2500 ####[facility] [address] [place], [address] RDW SD 59.6 fl High 35.1-43.9 [facility] Comment on above: Performed By: #### L 100.0100, L500.2500 ####[facility] [address] [place], [address] WBC (Bld) [#/Vol] 17.2 10*3/uL High 4.4-11.0 [facility] Comment on above: Performed By: #### L 100.0100, L500.2500 ####[facility] [address] [place], [address] Serum or plasma vancomycin m easurement (mass/volume)Ordered By: Jayla Osuna on 07-19-2024 Vancomycin [Mass/Vol] 16.7 ug/mL High 0.0-15.0 [facility] Vancomycin, Random Levelon 0 07-19-2024 VANCO, RANDOM 16.7 ug/mL High 0.0-15.0 [facility] Comment on above: Result Comment: VANC OMYCIN STANDARD DRUG THERAPY: CRITICAL VALUE IS > 15.0 mg/LVANCOMYCIN HIGH INTENSITY THERAPY: CRITICAL VALUE IS > 20.0 mg/LPLEASE CONTACT PHARMACY SERVICES (#1363) FOR INTERPRETATIONOF RESULTS. THIS RESULT DOES NOT REPRESENT A PEAK OR TROUGHLEVEL FOR THIS DRUG. Performed By: #### L 501.8850 ####[facility] [address] [place], [address] Basic Metabolic Profile (BMP )on 07-18-2024 GFR/1.73 sq M.predicted among non-blacks MDRD (S/P/Bld) [Vol rate/Area] 12 mL/min/{1.73_m2} Low >60 [facility] Comment on above: Order Comment: WILL REORDER Result Comment: WILL REORDERmL/min/1.73m2 CKD-EPI Creatinine Equation (2020) Performed By: #### L 100.0100, L500.2500 ####[facility] [address] [place], [address] Calcium Normal 8.5-10.1 [facility] Comment on above: Order Comment: WILL REORDER Result Comment: WILL REORDER Performed By: #### L 100.0100, L500.2500 ####[facility] [address] [place], [address] CL Normal 98-107 [facility] Comment on above: Order Comment: WILL REORDER Result Comment: WILL REORDER Performed By: #### L 100.0100, L500.2500 ####[facility] [address] [place], [address] CO2 Normal 21.0-32.0 [facility] Comment on above: Order Comment: WILL REORDER Result Comment: WILL REORDER Performed By: #### L 100.0100, L500.2500 ####[facility] [address] [place], [address] EST GFR - AA Normal >60 [facility] Comment on above: Order Comment: WILL REORDER Result Comment: WILL REORDER Performed By: #### L 100.0100, L500.2500 ####[facility] [address] [place], [address] GAP Normal 5-15 [facility] Comment on above: Order Comment: WILL REORDER Result Comment: WILL REORDER Performed By: #### L 100.0100, L500.2500 ####[facility] [address] [place], [address] Potassium Normal 3.5-5.1 [facility] Comment on above: Order Comment: WILL REORDER Result Comment: WILL REORDER Performed By: #### L 100.0100, L500.2500 ####[facility] [address] [place], [address] Basic Metabolic Profile (BMP) Normal 136-145 [facility] Comment on above: Order Comment: WILL REORDER Result Comment: WILL REORDER Performed By: #### L 100.0100, L500.2500 ####[facility] [address] [place], [address] Bedside Glucoseon 07-18-2024 FINGERSTICK GLU 110 mg/dL High 74-106 [facility] Comment on above: Result Comment: FANG GEMENT OF PATIENT CARE PER NURSING PROTOCOL Performed By: #### L 501.080 ####[facility] [address] [place], [address] FINGERSTICK GLU 156 mg/dL High 74-106 [facility] Comment on above: Result Comment: FANG GEMENT OF PATIENT CARE PER NURSING PROTOCOL Performed By: #### L 501.080 ####[facility] [address] [place], [address] FINGERSTICK GLU 139 mg/dL High 74-106 [facility] Comment on above: Result Comment: FANG GEMENT OF PATIENT CARE PER NURSING PROTOCOL Performed By: #### L 501.080 ####[facility] [address] [place], [address] FINGERSTICK GLU 155 mg/dL High 74-106 [facility] Comment on above: Result Comment: FANG GEMENT OF PATIENT CARE PER NURSING PROTOCOL Performed By: #### L 501.080 ####[facility] [address] [place], [address] FINGERSTICK GLU 229 mg/dL High 74-106 [facility] Comment on above: Result Comment: FANG GEMENT OF PATIENT CARE PER NURSING PROTOCOL Performed By: #### L 501.080 ####[facility] [address] [place], [address] Body Tissue Cultureon 2024 BTC Normal [facility] Comment on above: Performed By: #### M 100.2910, M100.4001, M100.2000 ####[facility] [address] [place], [address] CBC W/Diff, Automatedon - PATH REV Reviewed Normal [facility] Comment on above: Result Comment: Neut rophilic leukocytosis with left shift.Normocytic anemia.Clinical correlation necessary.Jose Souza M.D. 07/18/24 AMENDED REPORT 07/18/24 1335 PATH REV previously reported as: September Performed By: #### L 100.0100, L500.2500 ####[facility] [address] [place], [address] Culture, Anaerobic Any Sourc reed 07-18-2024 CUAN Normal [facility] Comment on above: Performed By: #### M 100.4001, M100.2000, M100.3000 ####[facility] [address] [place], [address] Review by pathologistOrdered By: Jayla Osuna on 07-18-2024 Pathologist review Jeff (Unsp spec) [Interp] Reviewed [facility] Wound Cultureon 07-18-2024 Normal [facility] Comment on above: Performed By: #### M 100.4001, M100.3000, M100.2000 ####[facility] [address] [place], [address] WC Normal [facility] Comment on above: Performed By: #### M 100.2000, M100.3000, M100.4001 ####[facility] [address] [place], [address] Ankle Brachial Indexon 07-17 Ankle Brachial Index Normal [facility] Basic Metabolic Profile (BMP )on 07-17-2024 BUN/CRE 13.3 RATIO Normal 10-20 [facility] Comment on above: Performed By: #### L 500.2500, L100.0100 ####[facility] [address] [place], [address] CA,Total 8.3 mg/dL Low 8.5-10.1 [facility] Comment on above: Performed By: #### L 500.2500, L100.0100 ####[facility] [address] [place], [address] Chloride [Moles/Vol] 97 mmol/L Low 98-107 [facility] Comment on above: Performed By: #### L 500.2500, L100.0100 ####[facility] [address] [place], [address] CO2 [Moles/Vol] 25.0 mmol/L Normal 21.0-32.0 [facility] Comment on above: Performed By: #### L 500.2500, L100.0100 ####[facility] [address] [place], [address] Creatinine [Mass/Vol] 6.15 mg/dL High 0.70-1.30 [facility] Comment on above: Result Comment: The validity of the calculated GFR GFRAA in patients over70 years has not been determined. Clinical correlation isessential. Performed By: #### L 500.2500, L100.0100 ####[facility] [address] [place], [address] ECRCL 9.33 ml/min Normal [facility] Comment on above: Performed By: #### L 500.2500, L100.0100 ####[facility] [address] [place], [address] EST GFR - AA 11 mL/min Low >60 [facility] Comment on above: Result Comment: Afri can Japanese GFR Calc Performed By: #### L 500.2500, L100.0100 ####[facility] [address] [place], [address] GAP 8 Normal 5-15 [facility] Comment on above: Performed By: #### L 500.2500, L100.0100 ####[facility] [address] [place], [address] GFR/1.73 sq M.predicted among non-blacks MDRD (S/P/Bld) [Vol rate/Area] 9 mL/min/{1.73_m2} Low >60 [facility] Comment on above: Result Comment: Non- GFR Calc Performed By: #### L 500.2500, L100.0100 ####[facility] [address] [place], [address] Glucose [Mass/Vol] 213 mg/dL High 74-106 [facility] Comment on above: Result Comment: Gluc ose result greater than or equal to 200 mg/dLsuggests DIABETES MELLITUS per A.D.A. criteria. Performed By: #### L 500.2500, L100.0100 ####[facility] [address] [place], [address] Potassium [Moles/Vol] 5.1 mmol/L Normal 3.5-5.1 [facility] Comment on above: Performed By: #### L 500.2500, L100.0100 ####[facility] [address] [place], [address] Sodium [Moles/Vol] 130 mmol/L Low 136-145 [facility] Comment on above: Performed By: #### L 500.2500, L100.0100 ####[facility] [address] [place], [address] Urea nitrogen [Mass/Vol] 82 mg/dL High 7-18 [facility] Comment on above: Performed By: #### L 500.2500, L100.0100 ####[facility] [address] [place], [address] Bedside Glucoseon 07-17-2024 FINGERSTICK GLU 119 mg/dL High 74-106 [facility] Comment on above: Result Comment: FANG GEMENT OF PATIENT CARE PER NURSING PROTOCOL Performed By: #### L 501.080 ####[facility] [address] [place], [address] FINGERSTICK GLU 226 mg/dL High 74-106 [facility] Comment on above: Result Comment: FANG GEMENT OF PATIENT CARE PER NURSING PROTOCOL Performed By: #### L 501.080 ####[facility] [address] [place], [address] FINGERSTICK GLU 203 mg/dL High 74-106 [facility] Comment on above: Result Comment: FANG GEMENT OF PATIENT CARE PER NURSING PROTOCOL Performed By: #### L 501.080 ####[facility] [address] [place], [address] FINGERSTICK GLU 208 mg/dL High 74-106 [facility] Comment on above: Result Comment: FANG GEMENT OF PATIENT CARE PER NURSING PROTOCOL Performed By: #### L 501.080 ####[facility] [address] [place], [address] Blood cultureOrdered By: Rosales Shore on 07-17-2024 Bacteria identified Cx Nom (Bld) No growth in 5 days. [facility] CBC W/Diff, Automatedon 06-24 Absolute Lymph 2.11 X10 3/uL Normal 0.83-4.51 [facility] Comment on above: Performed By: #### L 500.2500, L100.0100 ####[facility] [address] [place], [address] Absolute Neut 17.0 X10 3/uL High 2.0-7.7 [facility] Comment on above: Performed By: #### L 500.2500, L100.0100 ####[facility] [address] [place], [address] Basophils/100 WBC (Bld) 0.3 % Normal 0-1 [facility] Comment on above: Performed By: #### L 500.2500, L100.0100 ####[facility] [address] [place], [address] Eosinophils/100 WBC (Bld) 0.6 % Normal 0-5 [facility] Comment on above: Performed By: #### L 500.2500, L100.0100 ####[facility] [address] [place], [address] Erythrocyte distribution width (RBC) [Ratio] 17.7 % High 11.6-14.6 [facility] Comment on above: Performed By: #### L 500.2500, L100.0100 ####[facility] [address] [place], [address] Hematocrit (Bld) [Volume fraction] 23.7 % Low 40-54 [facility] Comment on above: Performed By: #### L 500.2500, L100.0100 ####[facility] [address] [place], [address] Hemoglobin (Bld) [Mass/Vol] 7.1 g/dL Low 13.0-16.5 [facility] Comment on above: Performed By: #### L 500.2500, L100.0100 ####[facility] [address] [place], [address] IG% 2.800 High 0.0-0.9 [facility] Comment on above: Result Comment: IG% - Immature Granulocytes (promyelocytes, myelocytes andmetamyelocytes) > 1% indicates that a LEFT SHIFT is Present. Performed By: #### L 500.2500, L100.0100 ####[facility] [address] [place], [address] Lymphocytes/100 WBC (Bld) 9.9 % Low 19-41 [facility] Comment on above: Performed By: #### L 500.2500, L100.0100 ####[facility] [address] [place], [address] MCH (RBC) [Entitic mass] 27.8 pg Normal 27.0-32.0 [facility] Comment on above: Performed By: #### L 500.2500, L100.0100 ####[facility] [address] [place], [address] MCHC (RBC) [Mass/Vol] 30.0 g/dL Low 32-36 [facility] Comment on above: Performed By: #### L 500.2500, L100.0100 ####[facility] [address] [place], [address] MCV (RBC) [Entitic vol] 92.9 fL Normal 80-94 [facility] Comment on above: Performed By: #### L 500.2500, L100.0100 ####[facility] [address] [place], [address] Monocytes/100 WBC (Bld) 6.6 % Normal 0-10 [facility] Comment on above: Performed By: #### L 500.2500, L100.0100 ####[facility] [address] [place], [address] Neutrophils/100 WBC (Bld) 79.8 % High 47-70 [facility] Comment on above: Performed By: #### L 500.2500, L100.0100 ####[facility] [address] [place], [address] Nucleated RBC (Bld) [#/Vol] 0 10*3/uL Normal 0-5 [facility] Comment on above: Performed By: #### L 500.2500, L100.0100 ####[facility] [address] [place], [address] Platelet mean volume (Bld) [Entitic vol] 10.7 fL Normal 6.2-12.0 [facility] Comment on above: Performed By: #### L 500.2500, L100.0100 ####[facility] [address] [place], [address] Platelets (Bld) [#/Vol] 378 10*3/uL Normal 150-450 [facility] Comment on above: Performed By: #### L 500.2500, L100.0100 ####[facility] [address] [place], [address] RBC (Bld) [#/Vol] 2.55 10*6/uL Low 4.6-6.2 [facility] Comment on above: Performed By: #### L 500.2500, L100.0100 ####[facility] [address] [place], [address] RDW SD 60.7 fl High 35.1-43.9 [facility] Comment on above: Performed By: #### L 500.2500, L100.0100 ####[facility] [address] [place], [address] WBC (Bld) [#/Vol] 21.2 10*3/uL High 4.4-11.0 [facility] Comment on above: Performed By: #### L 500.2500, L100.0100 ####[facility] [address] [place], [address] Chloride measurementOrdered By: Jayla Osuna on 07-17-2024 Chloride [Moles/Vol] 97 mmol/L Low 98-107 [facility] Gram Stainon 07-17-2024 GS UNK UNK Post-lavage Right lower extremity Gram Stain 3+ Gram positive cocci Rare White Blood Cells Normal [facility] Comment on above: Performed By: #### M 100.2000, M100.3000, M100.4001 ####[facility] [address] [place], [address] GS UNK UNK Pre-lavage right lower extremity - collected in [place] Gram Stain Rare White Blood Cells 3+ Red Blood Cells Rare Gram positive cocci Normal [facility] Comment on above: Performed By: #### M 100.4001, M100.3000, M1.1999 ####[facility] [address] [place], [address] GS Reason for Exam: Infection of right lower extremity Bone cortex right lower extremity Gram Stain 4+ Gram positive cocci Rare Gram negative rods No White Blood Cells Normal [facility] Comment on above: Performed By: #### M 100.2910, M100.4001, M100.1999 ####[facility] [address] [place], [address] US Art Duplex Bilat Lower Ex ton 07-17-2024 US Art Duplex Bilat Lower Ext Normal [facility] Vancomycin, Random Levelon 0 07-17-2024 VANCO, RANDOM 13.2 ug/mL Normal 0.0-15.0 [facility] Comment on above: Result Comment: VANC OMYCIN STANDARD DRUG THERAPY: CRITICAL VALUE IS > 15.0 mg/LVANCOMYCIN HIGH INTENSITY THERAPY: CRITICAL VALUE IS > 20.0 mg/LPLEASE CONTACT PHARMACY SERVICES (#5968) FOR INTERPRETATIONOF RESULTS. THIS RESULT DOES NOT REPRESENT A PEAK OR TROUGHLEVEL FOR THIS DRUG. Performed By: #### L 501.8850 ####[facility] [address] [place], [address] 12 Lead EKGon 07-16-2024 12 Lead EKG Normal [facility] Activated partial thrombopla stin time (aPTT) in platelet poor plasma by coagulation aOrdered By: Flavio Young on 07-16-2024 aPTT Coag (PPP) [Time] 39.7 s High 24.1-36.2 [facility] Anaerobic cultureOrdered By: Josef Garcia on 07-16-2024 Bacteria identified Anaer cx Nom (Unsp spec) Clostridium cadaveris Abnormal [facility] Bacteria identified Anaer cx Nom (Unsp spec) No anaerobic bacteria isolated. [facility] Bacterial tissue aerobic cul tureOrdered By: Josef Garcia on 07-16-2024 Bacteria identified Aer cx Nom (Tiss) Meth. resistant Staph. aureus Abnormal [facility] Basic Metabolic Profile (BMP )on 07-16-2024 BUN/CRE 13.8 RATIO Normal 10-20 [facility] Comment on above: Performed By: #### L 100.0100, L500.2500 ####[facility] [address] [place], [address] CA,Total 8.7 mg/dL Normal 8.5-10.1 [facility] Comment on above: Performed By: #### L 100.0100, L500.2500 ####[facility] [address] [place], [address] Chloride [Moles/Vol] 97 mmol/L Low 98-107 [facility] Comment on above: Performed By: #### L 100.0100, L500.2500 ####[facility] [address] [place], [address] CO2 [Moles/Vol] 26.0 mmol/L Normal 21.0-32.0 [facility] Comment on above: Performed By: #### L 100.0100, L500.2500 ####[facility] [address] [place], [address] Creatinine [Mass/Vol] 5.13 mg/dL High 0.70-1.30 [facility] Comment on above: Result Comment: The validity of the calculated GFR GFRAA in patients over70 years has not been determined. Clinical correlation isessential. Performed By: #### L 100.0100, L500.2500 ####[facility] [address] [place], [address] ECRCL 11.13 ml/min Normal [facility] Comment on above: Performed By: #### L 100.0100, L500.2500 ####[facility] [address] [place], [address] EST GFR - AA 14 mL/min Low >60 [facility] Comment on above: Result Comment: Afri can Japanese GFR Calc Performed By: #### L 100.0100, L500.2500 ####[facility] [address] [place], [address] GAP 11 Normal 5-15 [facility] Comment on above: Performed By: #### L 100.0100, L500.2500 ####[facility] [address] [place], [address] GFR/1.73 sq M.predicted among non-blacks MDRD (S/P/Bld) [Vol rate/Area] 11 mL/min/{1.73_m2} Low >60 [facility] Comment on above: Result Comment: Non- GFR Calc Performed By: #### L 100.0100, L500.2500 ####[facility] [address] [place], [address] Glucose [Mass/Vol] 127 mg/dL High 74-106 [facility] Comment on above: Result Comment: Fast ing Glucose result greater than or equal to 126 mg/dLsuggests DIABETES MELLITUS per A.D.A. criteria. Performed By: #### L 100.0100, L500.2500 ####[facility] [address] [place], [address] Potassium [Moles/Vol] 4.3 mmol/L Normal 3.5-5.1 [facility] Comment on above: Performed By: #### L 100.0100, L500.2500 ####[facility] [address] [place], [address] Sodium [Moles/Vol] 134 mmol/L Low 136-145 [facility] Comment on above: Performed By: #### L 100.0100, L500.2500 ####[facility] [address] [place], [address] Urea nitrogen [Mass/Vol] 71 mg/dL High 7-18 [facility] Comment on above: Performed By: #### L 100.0100, L500.2500 ####[facility] [address] [place], [address] Bedside Glucoseon 07-16-2024 FINGERSTICK GLU 105 mg/dL Normal 74-106 [facility] Comment on above: Result Comment: FANG GEMENT OF PATIENT CARE PER NURSING PROTOCOL Performed By: #### L 501.080 ####[facility] [address] [place], [address] FINGERSTICK GLU 118 mg/dL High 74-106 [facility] Comment on above: Result Comment: FANG GEMENT OF PATIENT CARE PER NURSING PROTOCOL Performed By: #### L 501.080 ####[facility] [address] [place], [address] FINGERSTICK GLU 122 mg/dL High 74-106 [facility] Comment on above: Result Comment: FANG GEMENT OF PATIENT CARE PER NURSING PROTOCOL Performed By: #### L 501.080 ####[facility] [address] [place], [address] Blood cultureOrdered By: Rosales Shore on 07-16-2024 Bacteria identified Cx Nom (Bld) No growth in 5 days. [facility] CBC W/Diff, Automatedon 06-24 PATH REV Reviewed Normal [facility] Comment on above: Result Comment: Neut rophilic leukocytosis with left shift.Normocytic anemia.Clinical correlation necessary.Jose Souza M.D. 07/16/24 AMENDED REPORT 07/16/24 1406 PATH REV previously reported as: September nitesh Performed By: #### L 101.9900, L501.6710, L500.2500, L100.0100 ####[facility] [address] [place], [address] Absolute Lymph 2.43 X10 3/uL Normal 0.83-4.51 [facility] Comment on above: Performed By: #### L 100.0100, L500.2500 ####[facility] [address] [place], [address] Absolute Neut 12.8 X10 3/uL High 2.0-7.7 [facility] Comment on above: Performed By: #### L 100.0100, L500.2500 ####[facility] [address] [place], [address] Basophils/100 WBC (Bld) 0.2 % Normal 0-1 [facility] Comment on above: Performed By: #### L 100.0100, L500.2500 ####[facility] [address] [place], [address] Eosinophils/100 WBC (Bld) 1.6 % Normal 0-5 [facility] Comment on above: Performed By: #### L 100.0100, L500.2500 ####[facility] [address] [place], [address] Erythrocyte distribution width (RBC) [Ratio] 17.7 % High 11.6-14.6 [facility] Comment on above: Performed By: #### L 100.0100, L500.2500 ####[facility] [address] [place], [address] Hematocrit (Bld) [Volume fraction] 25.2 % Low 40-54 [facility] Comment on above: Performed By: #### L 100.0100, L500.2500 ####[facility] [address] [place], [address] Hemoglobin (Bld) [Mass/Vol] 7.5 g/dL Low 13.0-16.5 [facility] Comment on above: Performed By: #### L 100.0100, L500.2500 ####[facility] [address] [place], [address] IG% 3.200 High 0.0-0.9 [facility] Comment on above: Result Comment: IG% - Immature Granulocytes (promyelocytes, myelocytes andmetamyelocytes) > 1% indicates that a LEFT SHIFT is Present. Performed By: #### L 100.0100, L500.2500 ####[facility] [address] [place], [address] Lymphocytes/100 WBC (Bld) 14.0 % Low 19-41 [facility] Comment on above: Performed By: #### L 100.0100, L500.2500 ####[facility] [address] [place], [address] MCH (RBC) [Entitic mass] 28.2 pg Normal 27.0-32.0 [facility] Comment on above: Performed By: #### L 100.0100, L500.2500 ####[facility] [address] [place], [address] MCHC (RBC) [Mass/Vol] 29.8 g/dL Low 32-36 [facility] Comment on above: Performed By: #### L 100.0100, L500.2500 ####[facility] [address] [place], [address] MCV (RBC) [Entitic vol] 94.7 fL High 80-94 [facility] Comment on above: Performed By: #### L 100.0100, L500.2500 ####[facility] [address] [place], [address] Monocytes/100 WBC (Bld) 7.5 % Normal 0-10 [facility] Comment on above: Performed By: #### L 100.0100, L500.2500 ####[facility] [address] [place], [address] Neutrophils/100 WBC (Bld) 73.5 % High 47-70 [facility] Comment on above: Performed By: #### L 100.0100, L500.2500 ####[facility] [address] [place], [address] Nucleated RBC (Bld) [#/Vol] 0 10*3/uL Normal 0-5 [facility] Comment on above: Performed By: #### L 100.0100, L500.2500 ####[facility] [address] [place], [address] Platelet mean volume (Bld) [Entitic vol] 10.6 fL Normal 6.2-12.0 [facility] Comment on above: Performed By: #### L 100.0100, L500.2500 ####[facility] [address] [place], [address] Platelets (Bld) [#/Vol] 378 10*3/uL Normal 150-450 [facility] Comment on above: Performed By: #### L 100.0100, L500.2500 ####[facility] [address] [place], [address] RBC (Bld) [#/Vol] 2.66 10*6/uL Low 4.6-6.2 [facility] Comment on above: Performed By: #### L 100.0100, L500.2500 ####[facility] [address] [place], [address] RDW SD 60.4 fl High 35.1-43.9 [facility] Comment on above: Performed By: #### L 100.0100, L500.2500 ####[facility] [address] [place], [address] WBC (Bld) [#/Vol] 17.4 10*3/uL High 4.4-11.0 [facility] Comment on above: Performed By: #### L 100.0100, L500.2500 ####[facility] [address] [place], [place], [address] Consultation - Infectious Dx on 07-16-2024 Consultation - Infectious Dx Normal [facility] Consultation - Nephrologyon 07-16-2024 Consultation - Nephrology Normal [facility] Culture, Blood (WB)on 2024 CUB Normal [facility] Comment on above: Performed By: #### M 200.1000, M100.636 ####[facility] [address] [place], [address] Foot 2 Viewson 07-16-2024 Foot 2 Views Normal [facility] Gram stainOrdered By: Kesha Garcia on 07-16-2024 Microscopic observation Gram stain Nom (Unsp spec) [facility] Hemoglobin A1con 07-16-2024 HbA1c (Bld) [Mass fraction] 6.0 % High 3.8-5.6 [facility] Comment on above: Order Comment: Comme nts: Pre-operative Result Comment: Norm al < 5.7 % Prediabetic 5.7 - 6.4 % Diabetic >or= 6.5 % Please note range changes. Performed By: #### L 300.3900, L501.9985, L300.4310 ####[facility] [address] [place], [address] Hemoglobin A1c percentageOrd ered By: Flavio Young on 07-16-2024 HbA1c (Bld) [Mass fraction] 6.0 % High 3.8-5.6 [facility] MR/POSTOP.ANEon 07-16-2024 MR/POSTOP.ANE Normal [facility] MR/BWNAPQEA2kx 07-16-2024 MR/POSTOPAN2 Normal [facility] Operative Reporton Operative Report Normal [facility] Partial Thromboplast Timeon 07-16-2024 aPTT Coag (Bld) [Time] 39.7 s High 24.1-36.2 [facility] Comment on above: Order Comment: Comme nts: Pre-operative Performed By: #### L 300.3900, L501.9985, L300.4310 ####[facility] [address] [place], [address] Prothrombin Time w/INRon INR Coag (PPP) [Relative time] 1.3 {INR} Normal [facility] Comment on above: Order Comment: Comme nts: Pre-operative Performed By: #### L 300.3900, L501.9985, L300.4310 ####[facility] [address] [place], [address] PT Coag (PPP) [Time] 16.8 s High 11.7-14.9 [facility] Comment on above: Order Comment: Comme nts: Pre-operative Performed By: #### L 300.3900, L501.9985, L300.4310 ####[facility] [address] [place], [address] Prothrombin timeOrdered By: Flavio Young on 07-16-2024 PT Coag (PPP) [Time] 16.8 s High 11.7-14.9 [facility] Routine wound cultureOrdered By: Josef Garcia on 07-16-2024 Microbial culture, routine Meth. resistant Staph. aureus Abnormal [facility] Basic Metabolic Profile (BMP )on 07-15-2024 BUN/CRE 13.9 RATIO Normal 10-20 [facility] Comment on above: Performed By: #### L 500.2500, L100.0100 ####[facility] [address] [place], [address] CA,Total 8.8 mg/dL Normal 8.5-10.1 [facility] Comment on above: Performed By: #### L 500.2500, L100.0100 ####[facility] [address] [place], [address] Chloride [Moles/Vol] 98 mmol/L Normal 98-107 [facility] Comment on above: Performed By: #### L 500.2500, L100.0100 ####[facility] [address] [place], [address] CO2 [Moles/Vol] 27.0 mmol/L Normal 21.0-32.0 [facility] Comment on above: Performed By: #### L 500.2500, L100.0100 ####[facility] [address] [place], [address] Creatinine [Mass/Vol] 3.97 mg/dL High 0.70-1.30 [facility] Comment on above: Result Comment: The validity of the calculated GFR GFRAA in patients over70 years has not been determined. Clinical correlation isessential. Performed By: #### L 500.2500, L100.0100 ####[facility] [address] [place], [address] ECRCL 14.64 ml/min Normal [facility] Comment on above: Performed By: #### L 500.2500, L100.0100 ####[facility] [address] [place], [address] EST GFR - AA 19 mL/min Low >60 [facility] Comment on above: Result Comment: Afri can Japanese GFR Calc Performed By: #### L 500.2500, L100.0100 ####[facility] [address] [place], [address] GAP 9 Normal 5-15 [facility] Comment on above: Performed By: #### L 500.2500, L100.0100 ####[facility] [address] [place], [address] GFR/1.73 sq M.predicted among non-blacks MDRD (S/P/Bld) [Vol rate/Area] 15 mL/min/{1.73_m2} Low >60 [facility] Comment on above: Result Comment: Non- GFR Calc Performed By: #### L 500.2500, L100.0100 ####[facility] [address] [place], [address] Glucose [Mass/Vol] 204 mg/dL High 74-106 [facility] Comment on above: Result Comment: Gluc ose result greater than or equal to 200 mg/dLsuggests DIABETES MELLITUS per A.D.A. criteria. Performed By: #### L 500.2500, L100.0100 ####[facility] [address] [place], [address] Potassium [Moles/Vol] 3.5 mmol/L Normal 3.5-5.1 [facility] Comment on above: Performed By: #### L 500.2500, L100.0100 ####[facility] [address] [place], [address] Sodium [Moles/Vol] 133 mmol/L Low 136-145 [facility] Comment on above: Performed By: #### L 500.2500, L100.0100 ####[facility] [address] [place], [address] Urea nitrogen [Mass/Vol] 55 mg/dL High 7-18 [facility] Comment on above: Performed By: #### L 500.2500, L100.0100 ####[facility] [address] [place], [address] Bedside Glucoseon 07-15-2024 FINGERSTICK GLU 138 mg/dL High 74-106 [facility] Comment on above: Result Comment: FANG GEMENT OF PATIENT CARE PER NURSING PROTOCOL Performed By: #### L 501.080 ####[facility] [address] [place], [address] FINGERSTICK GLU 57 mg/dL Low 74-106 [facility] Comment on above: Result Comment: FANG GEMENT OF PATIENT CARE PER NURSING PROTOCOL Performed By: #### L 501.080 ####[facility] [address] [place], [address] FINGERSTICK GLU 141 mg/dL High 74-106 [facility] Comment on above: Result Comment: FANG GEMENT OF PATIENT CARE PER NURSING PROTOCOL Performed By: #### L 501.080 ####[facility] [address] [place], [address] FINGERSTICK GLU 214 mg/dL High 74-106 [facility] Comment on above: Result Comment: FANG GEMENT OF PATIENT CARE PER NURSING PROTOCOL Performed By: #### L 501.080 ####[facility] [address] [place], [address] CBC W/Diff, Automatedon 02-2 3-2024 Absolute Lymph 2.18 X10 3/uL Normal 0.83-4.51 [facility] Comment on above: Performed By: #### L 500.2500, L100.0100 ####[facility] [address] [place], [address] Absolute Neut 14.1 X10 3/uL High 2.0-7.7 [facility] Comment on above: Performed By: #### L 500.2500, L100.0100 ####[facility] [address] [place], [address] Basophils/100 WBC (Bld) 0.2 % Normal 0-1 [facility] Comment on above: Performed By: #### L 500.2500, L100.0100 ####[facility] [address] [place], [address] Eosinophils/100 WBC (Bld) 1.2 % Normal 0-5 [facility] Comment on above: Performed By: #### L 500.2500, L100.0100 ####[facility] [address] [place], [address] Erythrocyte distribution width (RBC) [Ratio] 17.6 % High 11.6-14.6 [facility] Comment on above: Performed By: #### L 500.2500, L100.0100 ####[facility] [address] [place], [address] Hematocrit (Bld) [Volume fraction] 26.7 % Low 40-54 [facility] Comment on above: Performed By: #### L 500.2500, L100.0100 ####[facility] [address] [place], [address] Hemoglobin (Bld) [Mass/Vol] 7.8 g/dL Low 13.0-16.5 [facility] Comment on above: Performed By: #### L 500.2500, L100.0100 ####[facility] [address] [place], [address] IG% 2.500 High 0.0-0.9 [facility] Comment on above: Result Comment: IG% - Immature Granulocytes (promyelocytes, myelocytes andmetamyelocytes) > 1% indicates that a LEFT SHIFT is Present. Performed By: #### L 500.2500, L100.0100 ####[facility] [address] [place], [address] Lymphocytes/100 WBC (Bld) 11.9 % Low 19-41 [facility] Comment on above: Performed By: #### L 500.2500, L100.0100 ####[facility] [address] [place], [address] MCH (RBC) [Entitic mass] 27.9 pg Normal 27.0-32.0 [facility] Comment on above: Performed By: #### L 500.2500, L100.0100 ####[facility] [address] [place], [address] MCHC (RBC) [Mass/Vol] 29.2 g/dL Low 32-36 [facility] Comment on above: Performed By: #### L 500.2500, L100.0100 ####[facility] [address] [place], [address] MCV (RBC) [Entitic vol] 95.4 fL High 80-94 [facility] Comment on above: Performed By: #### L 500.2500, L100.0100 ####[facility] [address] [place], [address] Monocytes/100 WBC (Bld) 7.1 % Normal 0-10 [facility] Comment on above: Performed By: #### L 500.2500, L100.0100 ####[facility] [address] [place], [address] Neutrophils/100 WBC (Bld) 77.1 % High 47-70 [facility] Comment on above: Performed By: #### L 500.2500, L100.0100 ####[facility] [address] [place], [address] Nucleated RBC (Bld) [#/Vol] 0 10*3/uL Normal 0-5 [facility] Comment on above: Performed By: #### L 500.2500, L100.0100 ####[facility] [address] [place], [address] Platelet mean volume (Bld) [Entitic vol] 10.7 fL Normal 6.2-12.0 [facility] Comment on above: Performed By: #### L 500.2500, L100.0100 ####[facility] [address] [place], [address] Platelets (Bld) [#/Vol] 361 10*3/uL Normal 150-450 [facility] Comment on above: Performed By: #### L 500.2500, L100.0100 ####[facility] [address] [place], [address] RBC (Bld) [#/Vol] 2.80 10*6/uL Low 4.6-6.2 [facility] Comment on above: Performed By: #### L 500.2500, L100.0100 ####[facility] [address] [place], [address] RDW SD 61.1 fl High 35.1-43.9 [facility] Comment on above: Performed By: #### L 500.2500, L100.0100 ####[facility] [address] [place], [address] WBC (Bld) [#/Vol] 18.3 10*3/uL High 4.4-11.0 [facility] Comment on above: Performed By: #### L 500.2500, L100.0100 ####[facility] [address] [place], [address] Foot min 3 Viewson 5 Foot min 3 Views Normal [facility] Wound Cultureon 07-15-2024 WC Normal [facility] Comment on above: Performed By: #### M 100.4001, M100.2000, M100.3000 ####[facility] [address] [place], [address] BC GPC IDon 07-14-2024 BC GPC ID Normal [facility] Comment on above: Performed By: #### M 200.1000, M100.636 ####[facility] [address] [place], [address] Basic Metabolic Profile (BMP )on 07-14-2024 BUN/CRE 11.0 RATIO Normal 10-20 [facility] Comment on above: Performed By: #### L 500.2500, L100.0100 ####[facility] [address] [place], [address] CA,Total 8.6 mg/dL Normal 8.5-10.1 [facility] Comment on above: Performed By: #### L 500.2500, L100.0100 ####[facility] [address] [place], [address] Chloride [Moles/Vol] 94 mmol/L Low 98-107 [facility] Comment on above: Performed By: #### L 500.2500, L100.0100 ####[facility] [address] [place], [address] CO2 [Moles/Vol] 30.0 mmol/L Normal 21.0-32.0 [facility] Comment on above: Performed By: #### L 500.2500, L100.0100 ####[facility] [address] [place], [address] Creatinine [Mass/Vol] 4.84 mg/dL High 0.70-1.30 [facility] Comment on above: Result Comment: The validity of the calculated GFR GFRAA in patients over70 years has not been determined. Clinical correlation isessential. Performed By: #### L 500.2500, L100.0100 ####[facility] [address] [place], [address] ECRCL 11.51 ml/min Normal [facility] Comment on above: Performed By: #### L 500.2500, L100.0100 ####[facility] [address] [place], [address] EST GFR - AA 15 mL/min Low >60 [facility] Comment on above: Result Comment: Afri can Japanese GFR Calc Performed By: #### L 500.2500, L100.0100 ####[facility] [address] [place], [address] GAP 8 Normal 5-15 [facility] Comment on above: Performed By: #### L 500.2500, L100.0100 ####[facility] [address] [place], [address] GFR/1.73 sq M.predicted among non-blacks MDRD (S/P/Bld) [Vol rate/Area] 12 mL/min/{1.73_m2} Low >60 [facility] Comment on above: Result Comment: Non- GFR Calc Performed By: #### L 500.2500, L100.0100 ####[facility] [address] [place], [address] Glucose [Mass/Vol] 244 mg/dL High 74-106 [facility] Comment on above: Result Comment: Gluc ose result greater than or equal to 200 mg/dLsuggests DIABETES MELLITUS per A.D.A. criteria. Performed By: #### L 500.2500, L100.0100 ####[facility] [address] [place], [address] Potassium [Moles/Vol] 3.4 mmol/L Low 3.5-5.1 [facility] Comment on above: Performed By: #### L 500.2500, L100.0100 ####[facility] [address] [place], [address] Sodium [Moles/Vol] 132 mmol/L Low 136-145 [facility] Comment on above: Performed By: #### L 500.2500, L100.0100 ####[facility] [address] [place], [address] Urea nitrogen [Mass/Vol] 53 mg/dL High 7-18 [facility] Comment on above: Performed By: #### L 500.2500, L100.0100 ####[facility] [address] [place], [address] Bedside Glucoseon 07-14-2024 FINGERSTICK GLU 196 mg/dL High 74-106 [facility] Comment on above: Result Comment: FANG VAZQUEZ OF PATIENT CARE PER NURSING PROTOCOL Performed By: #### L 501.080 ####[facility] [address] [place], [address] FINGERSTICK GLU 103 mg/dL Normal 74-106 [facility] Comment on above: Result Comment: FANG GEMENT OF PATIENT CARE PER NURSING PROTOCOL Performed By: #### L 501.080 ####[facility] [address] [place], [address] FINGERSTICK GLU 183 mg/dL High 74-106 [facility] Comment on above: Result Comment: FANG GEMENT OF PATIENT CARE PER NURSING PROTOCOL Performed By: #### L 501.080 ####[facility] [address] [place], [address] FINGERSTICK GLU 239 mg/dL High 74-106 [facility] Comment on above: Result Comment: FANG GEMENT OF PATIENT CARE PER NURSING PROTOCOL Performed By: #### L 501.080 ####[facility] [address] [place], [address] CBC W/Diff, Automatedon 06-24 Absolute Lymph 1.49 X10 3/uL Normal 0.83-4.51 [facility] Comment on above: Performed By: #### L 500.2500, L100.0100 ####[facility] [address] [place], [address] Absolute Neut 14.7 X10 3/uL High 2.0-7.7 [facility] Comment on above: Performed By: #### L 500.2500, L100.0100 ####[facility] [address] [place], [address] Basophils/100 WBC (Bld) 0.2 % Normal 0-1 [facility] Comment on above: Performed By: #### L 500.2500, L100.0100 ####[facility] [address] [place], [address] Eosinophils/100 WBC (Bld) 0.9 % Normal 0-5 [facility] Comment on above: Performed By: #### L 500.2500, L100.0100 ####[facility] [address] [place], [address] Erythrocyte distribution width (RBC) [Ratio] 17.6 % High 11.6-14.6 [facility] Comment on above: Performed By: #### L 500.2500, L100.0100 ####[facility] [address] [place], [address] Hematocrit (Bld) [Volume fraction] 25.3 % Low 40-54 [facility] Comment on above: Performed By: #### L 500.2500, L100.0100 ####[facility] [address] [place], [address] Hemoglobin (Bld) [Mass/Vol] 7.8 g/dL Low 13.0-16.5 [facility] Comment on above: Performed By: #### L 500.2500, L100.0100 ####[facility] [address] [place], [address] IG% 3.300 High 0.0-0.9 [facility] Comment on above: Result Comment: IG% - Immature Granulocytes (promyelocytes, myelocytes andmetamyelocytes) > 1% indicates that a LEFT SHIFT is Present. Performed By: #### L 500.2500, L100.0100 ####[facility] [address] [place], [address] Lymphocytes/100 WBC (Bld) 8.2 % Low 19-41 [facility] Comment on above: Performed By: #### L 500.2500, L100.0100 ####[facility] [address] [place], [address] MCH (RBC) [Entitic mass] 28.8 pg Normal 27.0-32.0 [facility] Comment on above: Performed By: #### L 500.2500, L100.0100 ####[facility] [address] [place], [address] MCHC (RBC) [Mass/Vol] 30.8 g/dL Low 32-36 [facility] Comment on above: Performed By: #### L 500.2500, L100.0100 ####[facility] [address] [place], [address] MCV (RBC) [Entitic vol] 93.4 fL Normal 80-94 [facility] Comment on above: Performed By: #### L 500.2500, L100.0100 ####[facility] [address] [place], [address] Monocytes/100 WBC (Bld) 7.2 % Normal 0-10 [facility] Comment on above: Performed By: #### L 500.2500, L100.0100 ####[facility] [address] [place], [address] Neutrophils/100 WBC (Bld) 80.2 % High 47-70 [facility] Comment on above: Performed By: #### L 500.2500, L100.0100 ####[facility] [address] [place], [address] Nucleated RBC (Bld) [#/Vol] 0 10*3/uL Normal 0-5 [facility] Comment on above: Performed By: #### L 500.2500, L100.0100 ####[facility] [address] [place], [address] Platelet mean volume (Bld) [Entitic vol] 10.6 fL Normal 6.2-12.0 [facility] Comment on above: Performed By: #### L 500.2500, L100.0100 ####[facility] [address] [place], [address] Platelets (Bld) [#/Vol] 346 10*3/uL Normal 150-450 [facility] Comment on above: Performed By: #### L 500.2500, L100.0100 ####[facility] [address] [place], [address] RBC (Bld) [#/Vol] 2.71 10*6/uL Low 4.6-6.2 [facility] Comment on above: Performed By: #### L 500.2500, L100.0100 ####[facility] [address] [place], [address] RDW SD 59.7 fl High 35.1-43.9 [facility] Comment on above: Performed By: #### L 500.2500, L100.0100 ####[facility] [address] [place], [address] WBC (Bld) [#/Vol] 18.3 10*3/uL High 4.4-11.0 [facility] Comment on above: Performed By: #### L 500.2500, L100.0100 ####[facility] [address] [place], [address] Echo Completeon 07-14-2024 Echo Complete Normal [facility] Gram Stainon 07-14-2024 GS Gram Stain 1+ Gram positive rods 4+ Gram positive cocci Rare White Blood Cells No Epithelial cells Normal [facility] Comment on above: Performed By: #### M 100.4001, M100.2000, M100.3000 ####[facility] [address] [place], [address] Vancomycin, Random Levelon 0 07-14-2024 VANCO, RANDOM 15.3 ug/mL High 0.0-15.0 [facility] Comment on above: Order Comment: Comme nts: please draw with AM labs Result Comment: VANC OMYCIN STANDARD DRUG THERAPY: CRITICAL VALUE IS > 15.0 mg/LVANCOMYCIN HIGH INTENSITY THERAPY: CRITICAL VALUE IS > 20.0 mg/LPLEASE CONTACT PHARMACY SERVICES (#0556) FOR INTERPRETATIONOF RESULTS. THIS RESULT DOES NOT REPRESENT A PEAK OR TROUGHLEVEL FOR THIS DRUG. Performed By: #### L 501.8850 ####[facility] [address] [place], [address] Anaerobic cultureOrdered By: Chung Humphreys on 07-13-2024 Bacteria identified Anaer cx Nom (Unsp spec) Clostridium perfringens Abnormal [facility] Basic Metabolic Profile (BMP )on 07-13-2024 BUN/CRE 8.5 RATIO Low 10-20 [facility] Comment on above: Performed By: #### L 101.9900, L501.6710, L500.2500, L100.0100 ####[facility] [address] [place], [address] CA,Total 8.9 mg/dL Normal 8.5-10.1 [facility] Comment on above: Performed By: #### L 101.9900, L501.6710, L500.2500, L100.0100 ####[facility] [address] [place], [address] Chloride [Moles/Vol] 93 mmol/L Low 98-107 [facility] Comment on above: Performed By: #### L 101.9900, L501.6710, L500.2500, L100.0100 ####[facility] [address] [place], [address] CO2 [Moles/Vol] 32.0 mmol/L Normal 21.0-32.0 [facility] Comment on above: Performed By: #### L 101.9900, L501.6710, L500.2500, L100.0100 ####[facility] [address] [place], [address] Creatinine [Mass/Vol] 4.35 mg/dL High 0.70-1.30 [facility] Comment on above: Result Comment: The validity of the calculated GFR GFRAA in patients over70 years has not been determined. Clinical correlation isessential. Performed By: #### L 101.9900, L501.6710, L500.2500, L100.0100 ####[facility] [address] [place], [address] ECRCL 13.09 ml/min Normal [facility] Comment on above: Performed By: #### L 101.9900, L501.6710, L500.2500, L100.0100 ####[facility] [address] [place], [address] EST GFR - AA 17 mL/min Low >60 [facility] Comment on above: Result Comment: Afri can Japanese GFR Calc Performed By: #### L 101.9900, L501.6710, L500.2500, L100.0100 ####[facility] [address] [place], [address] GAP 8 Normal 5-15 [facility] Comment on above: Performed By: #### L 101.9900, L501.6710, L500.2500, L100.0100 ####[facility] [address] [place], [address] GFR/1.73 sq M.predicted among non-blacks MDRD (S/P/Bld) [Vol rate/Area] 14 mL/min/{1.73_m2} Low >60 [facility] Comment on above: Result Comment: Non- GFR Calc Performed By: #### L 101.9900, L501.6710, L500.2500, L100.0100 ####[facility] [address] [place], [address] Glucose [Mass/Vol] 132 mg/dL High 74-106 [facility] Comment on above: Result Comment: Fast ing Glucose result greater than or equal to 126 mg/dLsuggests DIABETES MELLITUS per A.D.A. criteria. Performed By: #### L 101.9900, L501.6710, L500.2500, L100.0100 ####[facility] [address] [place], [address] Potassium [Moles/Vol] 3.7 mmol/L Normal 3.5-5.1 [facility] Comment on above: Result Comment: Slig ht Hemolysis, Result may be falsely increased. Performed By: #### L 101.9900, L501.6710, L500.2500, L100.0100 ####[facility] [address] [place], [address] Sodium [Moles/Vol] 133 mmol/L Low 136-145 [facility] Comment on above: Performed By: #### L 101.9900, L501.6710, L500.2500, L100.0100 ####[facility] [address] [place], [address] Urea nitrogen [Mass/Vol] 37 mg/dL High 7-18 [facility] Comment on above: Performed By: #### L 101.9900, L501.6710, L500.2500, L100.0100 ####[facility] [address] [place], [address] Bedside Glucoseon 07-13-2024 FINGERSTICK GLU 231 mg/dL High 74-106 [facility] Comment on above: Result Comment: FANG ROLANDOENT OF PATIENT CARE PER NURSING PROTOCOL Performed By: #### L 501.080 ####[facility] [address] [place], [address] Blood cultureOrdered By: Noelle Humphreys on 07-13-2024 Bacteria identified Cx Nom (Bld) Meth. resistant Staph. aureus Abnormal [facility] Blood manual differential co mment interpretation (narrative result)Ordered By: Chung Humphreys on 07-13-2024 Manual differential comment Jeff (Bld) [Interp] SEE COMMENT [facility] C-reactive protein measureme nt by high sensitivity methodOrdered By: Chung Humphreys on 07-13-2024 C-reactive protein measurement by high sensitivity method 301.00 mg/L High 0.0-3.0 [facility] CRPon 07-13-2024 C-REACTIVE PROT 301.00 mg/L High 0.0-3.0 [facility] Comment on above: Result Comment: C-Re active Protein (CRP) provides useful information for thediagnosis, therapy and monitoring of inflammatory processesand associated diseases. For the evaluation of Relative Riskfor Cardiovascular Disease, a High Sensitivity CRP (HSCRP)should be ordered. Performed By: #### L 101.9900, L501.6710, L500.2500, L100.0100 ####[facility] [address] [place], [place], [address] Chest PA and Lateralon 07-13 Chest PA and Lateral Normal [facility] Emergency Department Summary on 07-13-2024 Emergency Department Summary Normal [facility] Erythrocyte Sed Rateon 07-13 SED RATE 53 mm/hr High 0-20 [facility] Comment on above: Performed By: #### L 101.9900, L501.6710, L500.2500, L100.0100 ####[facility] [address] [place], [place], [id number] Erythrocyte morphology asses smentOrdered By: Chung Humphreys on 07-13-2024 RBC morphology finding Nom (Bld) N CHROM NORMAL NORM C&C [facility] Erythrocyte sedimentation ra teOrdered By: Chung Humphreys on 07-13-2024 ESR (Bld) [Velocity] 53 mm/h High 0-20 [facility] Foot min 3 Viewson 5 Foot min 3 Views Normal [facility] Gram stainOrdered By: Kevin Humphreys on 07-13-2024 Microscopic observation Gram stain Nom (Unsp spec) [facility] H AND P Exam - Hospitaliston 07-13-2024 H&P Exam - Hospitalist Normal [facility] Hypochromatic red blood cell detectionOrdered By: Chung Humphreys on 07-13-2024 Hypochromia Ql (Bld) RARE [facility] Influenza virus A and B and SARS-CoV-2 (COVID-19) and Respiratory syncytial virus RNAOrdered By: Chung Humphreys on 07-13-2024 SARS-CoV-2 (COVID-19) RNA EZEKIEL+probe Ql (Unsp spec) [facility] M100.678on 07-13-2024 M100.678 SARS-CoV-2 (COVID 19 ) Negative INFLUENZA A Negative INFLUENZA B Negative RSV PCR Negative Normal [facility] Comment on above: Performed By: #### M 100.678 ####[facility] [address] [place], [place], [id number] Macrocytes detectionOrdered By: Chung Humphreys on 07-13-2024 Macrocytes Ql (Bld) 1+ [facility] No Panel InformationOrdered By: Chung Humphreys on 07-13-2024 1+ [facility] Organism identificationOrder ed By: Chung Humphreys on 07-13-2024 Microorganism identified Cx Nom (Unsp spec) Meth. resistant Staph. aureus Abnormal [facility] Platelet estimateOrdered By: Chung Humphreys on 07-13-2024 Platelets LM Ql (Bld) ADEQUATE ADEQ [facility] Routine wound cultureOrdered By: Chung Humphreys on 07-13-2024 Microbial culture, routine Meth. resistant Staph. aureus Abnormal [facility] Urinalysis, Completeon 07-13 BACTERIA Normal None Seen [facility] Comment on above: Order Comment: SENT LABEL TO MS3 TO COLLECTCOLLECTOR TO SPECIFY Result Comment: JAYY ENT DISCHARGED Performed By: #### L 400.0001 ####[facility] [address] [place], [address] BILIRUBIN URINE Normal Negative [facility] Comment on above: Order Comment: SENT LABEL TO MS3 TO COLLECTCOLLECTOR TO SPECIFY Result Comment: JAYY ENT DISCHARGED Performed By: #### L 400.0001 ####[facility] [address] [place], [address] Clarity (U) Normal Clear [facility] Comment on above: Order Comment: SENT LABEL TO MS3 TO COLLECTCOLLECTOR TO SPECIFY Result Comment: JAYY ENT DISCHARGED Performed By: #### L 400.0001 ####[facility] [address] [place], [address] Color (U) Normal Yellow [facility] Comment on above: Order Comment: SENT LABEL TO MS3 TO COLLECTCOLLECTOR TO SPECIFY Result Comment: JAYY ENT DISCHARGED Performed By: #### L 400.0001 ####[facility] [address] [place], [address] EPI,SQUAMOUS Normal 0-5 [facility] Comment on above: Order Comment: SENT LABEL TO MS3 TO COLLECTCOLLECTOR TO SPECIFY Result Comment: JAYY ENT DISCHARGED Performed By: #### L 400.0001 ####[facility] [address] [place], [address] GLUCOSE, UR Normal Normal [facility] Comment on above: Order Comment: SENT LABEL TO MS3 TO COLLECTCOLLECTOR TO SPECIFY Result Comment: JAYY ENT DISCHARGED Performed By: #### L 400.0001 ####[facility] [address] [place], [address] KETONE UR Normal Negative [facility] Comment on above: Order Comment: SENT LABEL TO MS3 TO COLLECTCOLLECTOR TO SPECIFY Result Comment: JAYY ENT DISCHARGED Performed By: #### L 400.0001 ####[facility] [address] [place], [address] LEUK ESTERASE Normal Negative [facility] Comment on above: Order Comment: SENT LABEL TO MS3 TO COLLECTCOLLECTOR TO SPECIFY Result Comment: JAYY ENT DISCHARGED Performed By: #### L 400.0001 ####[facility] [address] [place], [address] Mucus Ql (Urine sed) Normal [facility] Comment on above: Order Comment: SENT LABEL TO MS3 TO COLLECTCOLLECTOR TO SPECIFY Result Comment: JAYY ENT DISCHARGED Performed By: #### L 400.0001 ####[facility] [address] [place], [address] Nitrite Ql (U) Normal Negative [facility] Comment on above: Order Comment: SENT LABEL TO MS3 TO COLLECTCOLLECTOR TO SPECIFY Result Comment: JAYY ENT DISCHARGED Performed By: #### L 400.0001 ####[facility] [address] [place], [address] OCCULT BLOOD-UR Normal Negative [facility] Comment on above: Order Comment: SENT LABEL TO MS3 TO COLLECTCOLLECTOR TO SPECIFY Result Comment: JAYY ENT DISCHARGED Performed By: #### L 400.0001 ####[facility] [address] [place], [address] pH UR Normal 5.0 - 8.0 [facility] Comment on above: Order Comment: SENT LABEL TO MS3 TO COLLECTCOLLECTOR TO SPECIFY Result Comment: JAYY ENT DISCHARGED Performed By: #### L 400.0001 ####[facility] [address] [place], [address] PROT DIPSTX Normal Negative [facility] Comment on above: Order Comment: SENT LABEL TO MS3 TO COLLECTCOLLECTOR TO SPECIFY Result Comment: JAYY ENT DISCHARGED Performed By: #### L 400.0001 ####[facility] [address] [place], [address] RBC Normal 0-5 [facility] Comment on above: Order Comment: SENT LABEL TO MS3 TO COLLECTCOLLECTOR TO SPECIFY Result Comment: JAYY ENT DISCHARGED Performed By: #### L 400.0001 ####[facility] [address] [place], [address] SP.GR. DIPSTX Normal 1.002-1.030 [facility] Comment on above: Order Comment: SENT LABEL TO MS3 TO COLLECTCOLLECTOR TO SPECIFY Result Comment: JAYY ENT DISCHARGED Performed By: #### L 400.0001 ####[facility] [address] [place], [address] UR Preservative Normal [facility] Comment on above: Order Comment: SENT LABEL TO MS3 TO COLLECTCOLLECTOR TO SPECIFY Result Comment: JAYY ENT DISCHARGED Performed By: #### L 400.0001 ####[facility] [address] [place], [address] UROBILI Normal Normal [facility] Comment on above: Order Comment: SENT LABEL TO MS3 TO COLLECTCOLLECTOR TO SPECIFY Result Comment: JAYY ENT DISCHARGED Performed By: #### L 400.0001 ####[facility] [address] [place], [address] WBC Normal 0-5 [facility] Comment on above: Order Comment: SENT LABEL TO MS3 TO COLLECTCOLLECTOR TO SPECIFY Result Comment: JAYY ENT DISCHARGED Performed By: #### L 400.0001 ####[facility] [address] [place], [address] Absolute lymphocyte countOrd ered By: Nando Wiggins on 07-09-2024 Lymphocytes Auto (Unsp spec) [#/Vol] 1.88 10*3/uL 0.83-4.51 [facility] Automated lymphocyte count a s percentage of total leukocytesOrdered By: Nando Wiggins on 07-09-2024 Lymphocytes/100 WBC Auto (Unsp spec) 12.0 % Low 19-41 [facility] Basophil percentageOrdered B y: Nando Wiggins on 07-09-2024 Basophils/100 WBC (Bld) 0.2 % 0-1 [facility] Carbon dioxide measurementOr dered By: Nando Wiggins on 07-09-2024 CO2 [Moles/Vol] 29.0 mmol/L 21.0-32.0 [facility] Chloride measurementOrdered By: Nando Wiggins on 07-09-2024 Chloride [Moles/Vol] 89 mmol/L Low 98-107 [facility] Eosinophil percentageOrdered By: Nando Wiggins on 07-09-2024 Eosinophils/100 WBC (Bld) 0.4 % 0-5 [facility] Erythrocyte distribution wid th ratioOrdered By: Nando Wiggins on 07-09-2024 Erythrocyte distribution width (RBC) [Ratio] 16.9 % High 11.6-14.6 [facility] Erythrocyte distribution wid th standard deviationOrdered By: Nando Wiggnis on 07-09-2024 Erythrocyte distribution width (RBC) [Ratio] 57.9 fl High 35.1-43.9 [facility] Glomerular filtration rate ( GFR) estimationOrdered By: Nando Wiggins on 07-09-2024 GFR/1.73 sq M.predicted among non-blacks MDRD (S/P/Bld) [Vol rate/Area] 11 mL/min/{1.73_m2} Low >60 [facility] Glucose measurementOrdered B y: Nando Wiggins on 07-09-2024 Glucose [Mass/Vol] 131 mg/dL High 74-106 [facility] Hematocrit Auto (Bld) [Volum e fraction]Ordered By: Nando Wiggins on 07-09-2024 Hematocrit (Bld) [Volume fraction] 26.0 % Low 40-54 [facility] Hemoglobin measurementOrdere d By: Nando Wiggins on 07-09-2024 Hemoglobin (Bld) [Mass/Vol] 7.7 g/dL Low 13.0-16.5 [facility] Immature granulocytes/100 WB C Auto (Bld)Ordered By: Nando Wiggins on 07-09-2024 Immature granulocytes/100 WBC (Bld) 0.600 % 0.0-0.9 [facility] MCV (mean corpuscular volume ) determinationOrdered By: Nando Wiggins on 07-09-2024 MCV (RBC) [Entitic vol] 94.9 fL High 80-94 [facility] Mean corpuscular hemoglobin (MCH) determinationOrdered By: Nando Wiggins on 07-09-2024 MCH (RBC) [Entitic mass] 28.1 pg 27.0-32.0 [facility] Monocyte percentageOrdered B y: Nando Wiggins on 07-09-2024 Monocytes/100 WBC (Bld) 7.0 % 0-10 [facility] Neutrophil percentageOrdered By: Nando Wiggins on 07-09-2024 Neutrophils/100 WBC (Bld) 79.8 % High 47-70 [facility] Platelet countOrdered By: Kathie fili Meeklakshmienreida on 07-09-2024 Platelets (Bld) [#/Vol] 258 10*3/uL 150-450 [facility] Potassium measurementOrdered By: Kathiefili Edenlakshminereida on 07-09-2024 Potassium [Moles/Vol] 3.6 mmol/L 3.5-5.1 [facility] RBC Auto (Bld) [#/Vol]Ordere d By: Kathiebiancalilian Meeklakshminereida on 07-09-2024 RBC (Bld) [#/Vol] 2.74 10*6/uL Low 4.6-6.2 [facility] Serum or plasma calcium lilli urement (mass/volume)Ordered By: Nando Wiggins on 07-09-2024 Calcium [Mass/Vol] 9.2 mg/dL 8.5-10.1 [facility] Serum or plasma creatinine m easurement (mass/volume)Ordered By: Kathiefili Edenlakshminereida on 07-09-2024 Creatinine [Mass/Vol] 5.11 mg/dL High 0.70-1.30 [facility] Serum or plasma urea nitroge n measurement (mass/volume)Ordered By: Kathiefili Edenlakshminereida on 07-09-2024 Urea nitrogen [Mass/Vol] 61 mg/dL High 7-18 [facility] Sodium levelOrdered By: Kathiebianca lilian Rosalie on 07-09-2024 Sodium [Moles/Vol] 129 mmol/L Low 136-145 [facility] White blood cell (WBC) count Ordered By: Kathiefili Edenlakshminereida on 07-09-2024 WBC (Bld) [#/Vol] 15.7 10*3/uL High 4.4-11.0 [facility] 12 Lead EKGon 07-07-2024 12 Lead EKG Normal [facility] Absolute lymphocyte countOrd ered By: Alicia Loo on 07-07-2024 Lymphocytes Auto (Unsp spec) [#/Vol] 1.18 10*3/uL 0.83-4.51 [facility] Automated lymphocyte count a s percentage of total leukocytesOrdered By: Alicia Millsvaughn on 07-07-2024 Lymphocytes/100 WBC Auto (Unsp spec) 13.1 % Low 19-41 [facility] Basic Metabolic Profile (BMP )on 07-07-2024 BUN/CRE 11.0 RATIO Normal 10-20 [facility] Comment on above: Order Comment: 'TROP ' Serial specimen #1, #2 or #3: 1 Performed By: #### L 500.2500, L100.0100, L501.4020 ####[facility] [address] [place], [address] CA,Total 8.5 mg/dL Normal 8.5-10.1 [facility] Comment on above: Order Comment: 'TROP ' Serial specimen #1, #2 or #3: 1 Performed By: #### L 500.2500, L100.0100, L501.4020 ####[facility] [address] [place], [address] Chloride [Moles/Vol] 91 mmol/L Low 98-107 [facility] Comment on above: Order Comment: 'TROP ' Serial specimen #1, #2 or #3: 1 Performed By: #### L 500.2500, L100.0100, L501.4020 ####[facility] [address] [place], [address] CO2 [Moles/Vol] 33.0 mmol/L High 21.0-32.0 [facility] Comment on above: Order Comment: 'TROP ' Serial specimen #1, #2 or #3: 1 Performed By: #### L 500.2500, L100.0100, L501.4020 ####[facility] [address] [place], [address] Creatinine [Mass/Vol] 3.01 mg/dL High 0.70-1.30 [facility] Comment on above: Order Comment: 'TROP ' Serial specimen #1, #2 or #3: 1 Result Comment: The validity of the calculated GFR GFRAA in patients over70 years has not been determined. Clinical correlation isessential. Performed By: #### L 500.2500, L100.0100, L501.4020 ####[facility] [address] [place], [address] ECRCL 19.28 ml/min Normal [facility] Comment on above: Order Comment: 'TROP ' Serial specimen #1, #2 or #3: 1 Performed By: #### L 500.2500, L100.0100, L501.4020 ####[facility] [address] [place], [address] EST GFR - AA 26 mL/min Low >60 [facility] Comment on above: Order Comment: 'TROP ' Serial specimen #1, #2 or #3: 1 Result Comment: Afri can Japanese GFR Calc Performed By: #### L 500.2500, L100.0100, L501.4020 ####[facility] [address] [place], [address] GAP 8 Normal 5-15 [facility] Comment on above: Order Comment: 'TROP ' Serial specimen #1, #2 or #3: 1 Performed By: #### L 500.2500, L100.0100, L501.4020 ####[facility] [address] [place], [address] GFR/1.73 sq M.predicted among non-blacks MDRD (S/P/Bld) [Vol rate/Area] 21 mL/min/{1.73_m2} Low >60 [facility] Comment on above: Order Comment: 'TROP ' Serial specimen #1, #2 or #3: 1 Result Comment: Non- GFR Calc Performed By: #### L 500.2500, L100.0100, L501.4020 ####[facility] [address] [place], [address] Glucose [Mass/Vol] 157 mg/dL High 74-106 [facility] Comment on above: Order Comment: 'TROP ' Serial specimen #1, #2 or #3: 1 Result Comment: Fast ing Glucose result greater than or equal to 126 mg/dLsuggests DIABETES MELLITUS per A.D.A. criteria. Performed By: #### L 500.2500, L100.0100, L501.4020 ####[facility] [address] [place], [address] Potassium [Moles/Vol] 3.4 mmol/L Low 3.5-5.1 [facility] Comment on above: Order Comment: 'TROP ' Serial specimen #1, #2 or #3: 1 Performed By: #### L 500.2500, L100.0100, L501.4020 ####[facility] [address] [place], [address] Sodium [Moles/Vol] 132 mmol/L Low 136-145 [facility] Comment on above: Order Comment: 'TROP ' Serial specimen #1, #2 or #3: 1 Performed By: #### L 500.2500, L100.0100, L501.4020 ####[facility] [address] [place], [address] Urea nitrogen [Mass/Vol] 33 mg/dL High 7-18 [facility] Comment on above: Order Comment: 'TROP ' Serial specimen #1, #2 or #3: 1 Performed By: #### L 500.2500, L100.0100, L501.4020 ####[facility] [address] [place], [address] Basophil percentageOrdered B y: Remus Ungur on 07-07-2024 Basophils/100 WBC (Bld) 0.3 % 0-1 [facility] Bilirubin Test strip Ql (U)O rdered By: Remus Ungur on 07-07-2024 Bilirubin Ql (U) 1 mg/dL High Negative [facility] Brain/Head without Contrasto n 07-07-2024 Brain/Head without Contrast Normal [facility] CBC W/Diff, Automatedon 02-05 27-2024 Absolute Lymph 1.18 X10 3/uL Normal 0.83-4.51 [facility] Comment on above: Performed By: #### L 500.2500, L100.0100, L501.4020 ####[facility] [address] [place], [address] Absolute Neut 6.7 X10 3/uL Normal 2.0-7.7 [facility] Comment on above: Performed By: #### L 500.2500, L100.0100, L501.4020 ####[facility] [address] [place], [address] Basophils/100 WBC (Bld) 0.3 % Normal 0-1 [facility] Comment on above: Performed By: #### L 500.2500, L100.0100, L501.4020 ####[facility] [address] [place], [address] Eosinophils/100 WBC (Bld) 0.1 % Normal 0-5 [facility] Comment on above: Performed By: #### L 500.2500, L100.0100, L501.4020 ####[facility] [address] [place], [address] Erythrocyte distribution width (RBC) [Ratio] 16.6 % High 11.6-14.6 [facility] Comment on above: Performed By: #### L 500.2500, L100.0100, L501.4020 ####[facility] [address] [place], [address] Hematocrit (Bld) [Volume fraction] 27.0 % Low 40-54 [facility] Comment on above: Performed By: #### L 500.2500, L100.0100, L501.4020 ####[facility] [address] [place], [address] Hemoglobin (Bld) [Mass/Vol] 8.1 g/dL Low 13.0-16.5 [facility] Comment on above: Performed By: #### L 500.2500, L100.0100, L501.4020 ####[facility] [address] [place], [address] IG% 0.300 Normal 0.0-0.9 [facility] Comment on above: Result Comment: IG% - Immature Granulocytes (promyelocytes, myelocytes andmetamyelocytes) > 1% indicates that a LEFT SHIFT is Present. Performed By: #### L 500.2500, L100.0100, L501.4020 ####[facility] [address] [place], [address] Lymphocytes/100 WBC (Bld) 13.1 % Low 19-41 [facility] Comment on above: Performed By: #### L 500.2500, L100.0100, L501.4020 ####[facility] [address] [place], [address] MCH (RBC) [Entitic mass] 28.4 pg Normal 27.0-32.0 [facility] Comment on above: Performed By: #### L 500.2500, L100.0100, L501.4020 ####[facility] [address] [place], [address] MCHC (RBC) [Mass/Vol] 30.0 g/dL Low 32-36 [facility] Comment on above: Performed By: #### L 500.2500, L100.0100, L501.4020 ####[facility] [address] [place], [address] MCV (RBC) [Entitic vol] 94.7 fL High 80-94 [facility] Comment on above: Performed By: #### L 500.2500, L100.0100, L501.4020 ####[facility] [address] [place], [address] Monocytes/100 WBC (Bld) 11.4 % High 0-10 [facility] Comment on above: Performed By: #### L 500.2500, L100.0100, L501.4020 ####[facility] [address] [place], [id number] Neutrophils/100 WBC (Bld) 74.8 % High 47-70 [facility] Comment on above: Performed By: #### L 500.2500, L100.0100, L501.4020 ####[facility] [address] [place], [id number] Nucleated RBC (Bld) [#/Vol] 0 10*3/uL Normal 0-5 [facility] Comment on above: Performed By: #### L 500.2500, L100.0100, L501.4020 ####[facility] [address] [place], [id number] Platelet mean volume (Bld) [Entitic vol] 10.7 fL Normal 6.2-12.0 [facility] Comment on above: Performed By: #### L 500.2500, L100.0100, L501.4020 ####[facility] [address] [place], [id number] Platelets (Bld) [#/Vol] 211 10*3/uL Normal 150-450 [facility] Comment on above: Performed By: #### L 500.2500, L100.0100, L501.4020 ####[facility] [address] [place], [id number] RBC (Bld) [#/Vol] 2.85 10*6/uL Low 4.6-6.2 [facility] Comment on above: Performed By: #### L 500.2500, L100.0100, L501.4020 ####[facility] [address] [place], [address] RDW SD 56.3 fl High 35.1-43.9 [facility] Comment on above: Performed By: #### L 500.2500, L100.0100, L501.4020 ####[facility] [address] [place], [address] WBC (Bld) [#/Vol] 9.0 10*3/uL Normal 4.4-11.0 [facility] Comment on above: Performed By: #### L 500.2500, L100.0100, L501.4020 ####[facility] [address] [place], [place], [id number] Carbon dioxide measurementOr dered By: Alicia Loo on 07-07-2024 CO2 [Moles/Vol] 33.0 mmol/L High 21.0-32.0 [facility] Chest 1 View (Portable)on Chest 1 View (Portable) Normal [facility] Chloride measurementOrdered By: Alicia Loo on 07-07-2024 Chloride [Moles/Vol] 91 mmol/L Low 98-107 [facility] Emergency Department Summary on 07-07-2024 Emergency Department Summary Normal [facility] Eosinophil percentageOrdered By: Alicia Loo on 07-07-2024 Eosinophils/100 WBC (Bld) 0.1 % 0-5 [facility] Erythrocyte distribution wid th ratioOrdered By: Alicia Loo on 07-07-2024 Erythrocyte distribution width (RBC) [Ratio] 16.6 % High 11.6-14.6 [facility] Erythrocyte distribution wid th standard deviationOrdered By: Alicia Loo on 07-07-2024 Erythrocyte distribution width (RBC) [Ratio] 56.3 fl High 35.1-43.9 [facility] Glomerular filtration rate ( GFR) estimationOrdered By: Alicia Loo on 07-07-2024 GFR/1.73 sq M.predicted among non-blacks MDRD (S/P/Bld) [Vol rate/Area] 21 mL/min/{1.73_m2} Low >60 [facility] Glucose measurementOrdered B y: Alicia Loo on 07-07-2024 Glucose [Mass/Vol] 157 mg/dL High 74-106 [facility] Hematocrit Auto (Bld) [Volum e fraction]Ordered By: Alicia Millsvaughn on 07-07-2024 Hematocrit (Bld) [Volume fraction] 27.0 % Low 40-54 [facility] Hemoglobin measurementOrdere d By: Alicia Millsvaughn on 07-07-2024 Hemoglobin (Bld) [Mass/Vol] 8.1 g/dL Low 13.0-16.5 [facility] Immature granulocytes/100 WB C Auto (Bld)Ordered By: Darwin Genevaughn on 07-07-2024 Immature granulocytes/100 WBC (Bld) 0.300 % 0.0-0.9 [facility] Influenza virus A and B and SARS-CoV-2 (COVID-19) and Respiratory syncytial virus RNAOrdered By: Darwin Genevaughn on 07-07-2024 SARS-CoV-2 (COVID-19) RNA EZEKIEL+probe Ql (Unsp spec) [facility] Ketones Test strip Ql (U)Ord ered By: [facility] Millsvaughn on 07-07-2024 Ketones Ql (U) 5 mg/dl High Negative [facility] L501.4020on 07-07-2024 TROPONIN-I HS 62 pg/mL Normal 3.0-78.0 [facility] Comment on above: Order Comment: 'TROP ' Serial specimen #1, #2 or #3: 1 Result Comment: Plea se Note: New Test Units and Gender Specific Reference Ranges. For more information see Policy Stat Procedure [place] High Sensitivity Troponin (TNIH) and attachments. Performed By: #### L 500.2500, L100.0100, L501.4020 ####[facility] [address] [place], [address] M100.678on 07-07-2024 M100.678 Pending SARS-CoV-2 (COVID 19) Negative INFLUENZA A Negative INFLUENZA B Negative RSV PCR Negative Normal [facility] Comment on above: Performed By: #### M 100.678 ####[facility] [address] [place], [address] MCV (mean corpuscular volume ) determinationOrdered By: Alicia Loo on 07-07-2024 MCV (RBC) [Entitic vol] 94.7 fL High 80-94 [facility] Mean corpuscular hemoglobin (MCH) determinationOrdered By: Alicai Loo on 07-07-2024 MCH (RBC) [Entitic mass] 28.4 pg 27.0-32.0 [facility] Monocyte percentageOrdered B y: Alicia Loo on 07-07-2024 Monocytes/100 WBC (Bld) 11.4 % High 0-10 [facility] Mucus LM Ql (Urine sed)Order ed By: Alicia Loo on 07-07-2024 Mucus Ql (Urine sed) 0 SEEN /hpf [facility] Neutrophil percentageOrdered By: Alicia Loo on 07-07-2024 Neutrophils/100 WBC (Bld) 74.8 % High 47-70 [facility] Nitrite Test strip Ql (U)Ord ered By: Alicia Loo on 07-07-2024 Nitrite Ql (U) Negative Negative [facility] Platelet countOrdered By: Sowmya Loo on 07-07-2024 Platelets (Bld) [#/Vol] 211 10*3/uL 150-450 [facility] Potassium measurementOrdered By: Alicia Loo on 07-07-2024 Potassium [Moles/Vol] 3.4 mmol/L Low 3.5-5.1 [facility] Protein Test strip Ql (U)Ord ered By: Alicia Loo on 07-07-2024 Protein Ql (U) 100 mg/dl High Negative [facility] RBC Auto (Bld) [#/Vol]Ordere d By: Alicia Ungvaughn on 07-07-2024 RBC (Bld) [#/Vol] 2.85 10*6/uL Low 4.6-6.2 [facility] Serum or plasma calcium lilli urement (mass/volume)Ordered By: Alicia Loo on 07-07-2024 Calcium [Mass/Vol] 8.5 mg/dL 8.5-10.1 [facility] Serum or plasma creatinine m easurement (mass/volume)Ordered By: Alicia Loo on 07-07-2024 Creatinine [Mass/Vol] 3.01 mg/dL High 0.70-1.30 [facility] Serum or plasma urea nitroge n measurement (mass/volume)Ordered By: Alicia Millsvaughn on 07-07-2024 Urea nitrogen [Mass/Vol] 33 mg/dL High 7-18 [facility] Sodium levelOrdered By: Michael Millsvaughn on 07-07-2024 Sodium [Moles/Vol] 132 mmol/L Low 136-145 [facility] Squamous epithelial cells de tection in urine sediment by light microscopyOrdered By: Alicia Millsvaughn on 07-07-2024 Epithelial cells.squamous LM Ql (Urine sed) 0 SEEN /hpf 0-5 [facility] Troponin IOrdered By: Alicia Millsvaughn on 07-07-2024 Troponin I 62 pg/mL 3.0-78.0 [facility] Urinalysis, Completeon 07-07 RBC 0 SEEN Normal 0-5 [facility] Comment on above: Order Comment: COLOR OF URINE MAY AFFECT DIPSTICK RESULTS.CLEAN CATCH Performed By: #### L 400.0001 ####[facility] [address] [place], [address] WBC 0-5 SEEN Normal 0-5 [facility] Comment on above: Order Comment: COLOR OF URINE MAY AFFECT DIPSTICK RESULTS.CLEAN CATCH Performed By: #### L 400.0001 ####[facility] [address] [place], [address] BACTERIA 0 SEEN Normal None Seen [facility] Comment on above: Order Comment: COLOR OF URINE MAY AFFECT DIPSTICK RESULTS.CLEAN CATCH Performed By: #### L 400.0001 ####[facility] [address] [place], [address] EPI,SQUAMOUS 0 SEEN Normal 0-5 [facility] Comment on above: Order Comment: COLOR OF URINE MAY AFFECT DIPSTICK RESULTS.CLEAN CATCH Performed By: #### L 400.0001 ####[facility] [address] [place], [address] Mucus Ql (Urine sed) 0 SEEN Normal [facility] Comment on above: Order Comment: COLOR OF URINE MAY AFFECT DIPSTICK RESULTS.CLEAN CATCH Performed By: #### L 400.0001 ####[facility] [address] [place], [address] Urine clarityOrdered By: Kae Loo on 07-07-2024 Clarity (U) Clear Clear [facility] Urine color determinationOrd ered By: Alicia Loo on 07-07-2024 Color (U) Lilia Yellow [facility] Urine glucose detectionOrder ed By: Alicia Loo on 07-07-2024 Glucose Ql (U) 50 mg/dl High Normal [facility] Urine leukocyte esterase det ection by dipstickOrdered By: Alicia Loo on 07-07-2024 Leukocyte esterase Test strip Ql (U) 25 /ul High Negative [facility] Urine pHOrdered By: Alicia Lam gur on 07-07-2024 pH (U) 5.0 [pH] 5.0 - 8.0 [facility] Urine sediment bacteria coun t by microscopy (number/high power field)Ordered By: Alicia Loo on 07-07-2024 Bacteria LM.HPF (Urine sed) [#/Area] 0 /[HPF] None Seen [facility] Urine specific gravity measu rementOrdered By: Alicia Loo on 07-07-2024 Specific gravity (U) [Rel density] 1.015 1.002-1.030 [facility] Urine urobilinogen measureme ntOrdered By: Alicia Loo on 07-07-2024 Urobilinogen Ql (U) Normal mg/dl Normal [facility] White blood cell (WBC) count Ordered By: Alicia Loo on 07-07-2024 WBC (Bld) [#/Vol] 9.0 10*3/uL 4.4-11.0 [facility] White blood cell countOrdere d By: Alicia Loo on 07-07-2024 White blood cell count 0-5 SEEN /hpf 0-5 [facility] Bedside Glucoseon 07-04-2024 FINGERSTICK GLU 114 mg/dL High 74-106 [facility] Comment on above: Result Comment: FANG GEMENT OF PATIENT CARE PER NURSING PROTOCOL Performed By: #### L 501.080 ####[facility] [address] [place], [address] [facility] deOrdered By: Des Ruelas on 07-04-2024 Glucose [Mass/Vol] 114 mg/dL High 74-106 [facility] Absolute lymphocyte countOrd ered By: Eric Franklin on 07-03-2024 Lymphocytes Auto (Unsp spec) [#/Vol] 1.08 10*3/uL 0.83-4.51 [facility] Automated blood erythrocyte countOrdered By: Eric Franklin on 07-03-2024 RBC (Bld) [#/Vol] 2.75 10*6/uL Low 4.6-6.2 [facility] Comment on above: Performed By: #### L 100.0100, L500.4050 ####[facility] [address] [place], [address] Automated blood hematocrit ( percentage)Ordered By: Eric Franklin on 07-03-2024 Hematocrit (Bld) [Volume fraction] 25.7 % Low 40-54 [facility] Comment on above: Performed By: #### L 100.0100, L500.4050 ####[facility] [address] [place], [address] Automated lymphocyte count a s percentage of total leukocytesOrdered By: Eric Franklin on 07-03-2024 Lymphocytes/100 WBC Auto (Unsp spec) 12.6 % Low 19-41 [facility] Basophil percentageOrdered B y: Eric Franklin on 07-03-2024 Basophils/100 WBC (Bld) 0.2 % Normal 0-1 [facility] Comment on above: Performed By: #### L 100.0100, L500.4050 ####[facility] [address] [place], [address] Bilirubin, totalOrdered By: Eric Franklin on 07-03-2024 Bilirubin [Mass/Vol] 0.60 mg/dL Normal 0.20-1.00 [facility] Comment on above: Result Comment: For patients on eltrombopag therapy, use of Dimension [place] TBIL is not recommended. Performed By: #### L 100.0100, L500.4050 ####[facility] [address] [place], [address] CBC W/Diff, Automatedon 06-23 Absolute Lymph 1.08 X10 3/uL Normal 0.83-4.51 [facility] Comment on above: Performed By: #### L 100.0100, L500.4050 ####[facility] [address] [place], [address] Absolute Neut 6.2 X10 3/uL Normal 2.0-7.7 [facility] Comment on above: Performed By: #### L 100.0100, L500.4050 ####[facility] [address] [place], [address] IG% 0.700 Normal 0.0-0.9 [facility] Comment on above: Result Comment: IG% - Immature Granulocytes (promyelocytes, myelocytes andmetamyelocytes) > 1% indicates that a LEFT SHIFT is Present. Performed By: #### L 100.0100, L500.4050 ####[facility] [address] [place], [address] Lymphocytes/100 WBC (Bld) 12.6 % Low 19-41 [facility] Comment on above: Performed By: #### L 100.0100, L500.4050 ####[facility] [address] [place], [address] MCHC (RBC) [Mass/Vol] 31.5 g/dL Low 32-36 [facility] Comment on above: Performed By: #### L 100.0100, L500.4050 ####[facility] [address] [place], [address] Nucleated RBC (Bld) [#/Vol] 0 10*3/uL Normal 0-5 [facility] Comment on above: Performed By: #### L 100.0100, L500.4050 ####[facility] [address] [place], [address] Platelet mean volume (Bld) [Entitic vol] 11.1 fL Normal 6.2-12.0 [facility] Comment on above: Performed By: #### L 100.0100, L500.4050 ####[facility] [address] [place], [address] RDW SD 56.7 fl High 35.1-43.9 [facility] Comment on above: Performed By: #### L 100.0100, L500.4050 ####[facility] [address] [place], [address] Carbon dioxide measurementOr dered By: Eric Franklin on 07-03-2024 CO2 [Moles/Vol] 27.0 mmol/L Normal 21.0-32.0 [facility] Comment on above: Performed By: #### L 100.0100, L500.4050 ####[facility] [address] [place], [address] Chloride measurementOrdered By: Eric Franklin on 07-03-2024 Chloride [Moles/Vol] 96 mmol/L Low 98-107 [facility] Comment on above: Performed By: #### L 100.0100, L500.4050 ####[facility] [address] [place], [address] Comprehensive Metabolic Prof ilon 07-03-2024 Albumin/Globulin [Mass ratio] 0.5 {ratio} Low 0.9-2.4 [facility] Comment on above: Performed By: #### L 100.0100, L500.4050 ####[facility] [address] [place], [address] ALK P 63 U/L Normal 45-117 [facility] Comment on above: Performed By: #### L 100.0100, L500.4050 ####[facility] [address] [place], [address] AST [Catalytic activity/Vol] 26 U/L Normal 15-37 [facility] Comment on above: Result Comment: Mode rate Hemolysis, Result may be falsely increased. Performed By: #### L 100.0100, L500.4050 ####[facility] [address] [place], [address] BUN/CRE 12.2 RATIO Normal 10-20 [facility] Comment on above: Performed By: #### L 100.0100, L500.4050 ####[facility] [address] [place], [address] CA,Total 8.1 mg/dL Low 8.5-10.1 [facility] Comment on above: Performed By: #### L 100.0100, L500.4050 ####[facility] [address] [place], [address] ECRCL 20.19 ml/min Normal [facility] Comment on above: Performed By: #### L 100.0100, L500.4050 ####[facility] [address] [place], [address] EST GFR - AA 25 mL/min Low >60 [facility] Comment on above: Result Comment: Afri can Japanese GFR Calc Performed By: #### L 100.0100, L500.4050 ####[facility] [address] [place], [address] GAP 11 Normal 5-15 [facility] Comment on above: Performed By: #### L 100.0100, L500.4050 ####[facility] [address] [place], [address] T PROT 7.1 g/dL Normal 6.4-8.2 [facility] Comment on above: Performed By: #### L 100.0100, L500.4050 ####[facility] [address] [place], [address] Emergency Department Summary on 07-03-2024 Emergency Department Summary Normal [facility] Eosinophil percentageOrdered By: Eric Franklin on 07-03-2024 Eosinophils/100 WBC (Bld) 0.3 % Normal 0-5 [facility] Comment on above: Performed By: #### L 100.0100, L500.4050 ####[facility] [address] [place], [address] Erythrocyte distribution wid th ratioOrdered By: Eric Franklin on 07-03-2024 Erythrocyte distribution width (RBC) [Ratio] 17.2 % High 11.6-14.6 [facility] Comment on above: Performed By: #### L 100.0100, L500.4050 ####[facility] [address] [place], [address] Erythrocyte distribution wid th standard deviationOrdered By: Eric Franklin on 07-03-2024 Erythrocyte distribution width (RBC) [Ratio] 56.7 fl High 35.1-43.9 [facility] Glomerular filtration rate ( GFR) estimationOrdered By: Eric Franklin on 07-03-2024 GFR/1.73 sq M.predicted among non-blacks MDRD (S/P/Bld) [Vol rate/Area] 21 mL/min/{1.73_m2} Low >60 [facility] Comment on above: Result Comment: Non- GFR Calc Performed By: #### L 100.0100, L500.4050 ####[facility] [address] [place], [address] Glucose measurementOrdered B y: Eric Franklin on 07-03-2024 Glucose [Mass/Vol] 161 mg/dL High 74-106 [facility] Comment on above: Result Comment: Fast ing Glucose result greater than or equal to 126 mg/dLsuggests DIABETES MELLITUS per A.D.A. criteria. Performed By: #### L 100.0100, L500.4050 ####[facility] [address] [place], [address] Hemoglobin measurementOrdere d By: Eric Franklin on 07-03-2024 Hemoglobin (Bld) [Mass/Vol] 8.1 g/dL Low 13.0-16.5 [facility] Comment on above: Performed By: #### L 100.0100, L500.4050 ####[facility] [address] [place], [address] Immature granulocytes/100 WB C Auto (Bld)Ordered By: Eric Franklin on 07-03-2024 Immature granulocytes/100 WBC (Bld) 0.700 % 0.0-0.9 [facility] MCV (mean corpuscular volume ) determinationOrdered By: Eric Franklin on 07-03-2024 MCV (RBC) [Entitic vol] 93.5 fL Normal 80-94 [facility] Comment on above: Performed By: #### L 100.0100, L500.4050 ####[facility] [address] [place], [address] Mean corpuscular hemoglobin (MCH) determinationOrdered By: Eric Franklin on 07-03-2024 MCH (RBC) [Entitic mass] 29.5 pg Normal 27.0-32.0 [facility] Comment on above: Performed By: #### L 100.0100, L500.4050 ####[facility] [address] [place], [address] Monocyte percentageOrdered B y: Eric Franklin on 07-03-2024 Monocytes/100 WBC (Bld) 14.5 % High 0-10 [facility] Comment on above: Performed By: #### L 100.0100, L500.4050 ####[facility] [address] [place], [address] Neutrophil percentageOrdered By: Eric Lechugao on 07-03-2024 Neutrophils/100 WBC (Bld) 71.7 % High 47-70 [facility] Comment on above: Performed By: #### L 100.0100, L500.4050 ####[facility] [address] [place], [address] No Panel InformationOrdered By: Ericjorge Lechugao on 07-03-2024 26 U/L 15-37 [facility] Platelet countOrdered By: [facility] Franklin on 07-03-2024 Platelets (Bld) [#/Vol] 194 10*3/uL Normal 150-450 [facility] Comment on above: Performed By: #### L 100.0100, L500.4050 ####[facility] [address] [place], [address] Potassium measurementOrdered By: Ericjorge Lechugao on 07-03-2024 Potassium [Moles/Vol] 4.2 mmol/L Normal 3.5-5.1 [facility] Comment on above: Result Comment: Mode rate Hemolysis, Result may be falsely increased. Performed By: #### L 100.0100, L500.4050 ####[facility] [address] [place], [address] Serum globulin measurementOr dered By: Eric Lechugao on 07-03-2024 Globulin (S) [Mass/Vol] 4.7 g/dL High 2.2-4.2 [facility] Comment on above: Performed By: #### L 100.0100, L500.4050 ####[facility] [address] [place], [address] Serum or plasma alanine hawkins otransferase (ALT) measurementOrdered By: Ericjorge Lechugao on 02-11-2025 ALT [Catalytic activity/Vol] 13 U/L Low 16-61 [facility] Comment on above: Performed By: #### L 100.0100, L500.4050 ####[facility] [address] [place], [address] Serum or plasma albumin lilli urement (mass/volume)Ordered By: Eric Franklin on 07-03-2024 Albumin [Mass/Vol] 2.4 g/dL Low 3.2-5.0 [facility] Comment on above: Performed By: #### L 100.0100, L500.4050 ####[facility] [address] [place], [address] Serum or plasma alkaline penelope sphatase measurementOrdered By: Eric Franklin on 07-03-2024 ALP [Catalytic activity/Vol] 63 U/L 45-117 [facility] Serum or plasma calcium lilli urement (mass/volume)Ordered By: Eric Franklin on 07-03-2024 Calcium [Mass/Vol] 8.1 mg/dL Low 8.5-10.1 [facility] Serum or plasma creatinine m easurement (mass/volume)Ordered By: Eric Franklin on 07-03-2024 Creatinine [Mass/Vol] 3.04 mg/dL High 0.70-1.30 [facility] Comment on above: Result Comment: The validity of the calculated GFR GFRAA in patients over70 years has not been determined. Clinical correlation isessential. Performed By: #### L 100.0100, L500.4050 ####[facility] [address] [place], [address] Serum or plasma urea nitroge n measurement (mass/volume)Ordered By: Eric Franklin on 07-03-2024 Urea nitrogen [Mass/Vol] 37 mg/dL High 7-18 [facility] Comment on above: Performed By: #### L 100.0100, L500.4050 ####[facility] [address] [place], [address] Sodium levelOrdered By: Eric Franklin on 07-03-2024 Sodium [Moles/Vol] 134 mmol/L Low 136-145 [facility] Comment on above: Performed By: #### L 100.0100, L500.4050 ####[facility] [address] [place], [address] Total proteinOrdered By: Eric Franklin on 07-03-2024 Protein [Mass/Vol] 7.1 g/dL 6.4-8.2 [facility] White blood cell (WBC) count Ordered By: Eric Franklin on 07-03-2024 WBC (Bld) [#/Vol] 8.6 10*3/uL Normal 4.4-11.0 [facility] Comment on above: Performed By: #### L 100.0100, L500.4050 ####[facility] [address] [place], [address] 12 Lead EKGon 07-02-2024 12 Lead EKG Normal [facility] Absolute lymphocyte countOrd ered By: Nando Wiggins on 07-02-2024 Lymphocytes Auto (Unsp spec) [#/Vol] 1.88 10*3/uL 0.83-4.51 [facility] Automated lymphocyte count a s percentage of total leukocytesOrdered By: Nando Wiggins on 07-02-2024 Lymphocytes/100 WBC Auto (Unsp spec) 20.3 % 19-41 [facility] Basic Metabolic Profile (BMP )on 07-02-2024 BUN/CRE 18.1 RATIO Normal 10-20 [facility] Comment on above: Performed By: #### L 500.2500 ####[facility] [address] [place], [address] CA,Total 9.1 mg/dL Normal 8.5-10.1 [facility] Comment on above: Performed By: #### L 500.2500 ####[facility] [address] [place], [address] Chloride [Moles/Vol] 98 mmol/L Normal 98-107 [facility] Comment on above: Performed By: #### L 500.2500 ####[facility] [address] [facility] [address] CO2 [Moles/Vol] 26.0 mmol/L Normal 21.0-32.0 [facility] Comment on above: Performed By: #### L 500.2500 ####[facility] [address] [place], [address] Creatinine [Mass/Vol] 4.63 mg/dL High 0.70-1.30 [facility] Comment on above: Result Comment: The validity of the calculated GFR GFRAA in patients over70 years has not been determined. Clinical correlation isessential. Performed By: #### L 500.2500 ####[facility] [address] [place], [address] ECRCL 12.30 ml/min Normal [facility] Comment on above: Performed By: #### L 500.2500 ####[facility] [address] [place], [address] EST GFR - AA 16 mL/min Low >60 [facility] Comment on above: Result Comment: Afri can Japanese GFR Calc Performed By: #### L 500.2500 ####[facility] [address] [place], [address] GAP 9 Normal 5-15 [facility] Comment on above: Performed By: #### L 500.2500 ####[facility] [address] [facility] [address] GFR/1.73 sq M.predicted among non-blacks MDRD (S/P/Bld) [Vol rate/Area] 13 mL/min/{1.73_m2} Low >60 [facility] Comment on above: Result Comment: Non- GFR Calc Performed By: #### L 500.2500 ####[facility] [address] [place], [address] Glucose [Mass/Vol] 134 mg/dL High 74-106 [facility] Comment on above: Result Comment: Fast ing Glucose result greater than or equal to 126 mg/dLsuggests DIABETES MELLITUS per A.D.A. criteria. Performed By: #### L 500.2500 ####[facility] [address] [place], [address] Potassium [Moles/Vol] 4.3 mmol/L Normal 3.5-5.1 [facility] Comment on above: Performed By: #### L 500.2500 ####[facility] [address] [place], [address] Sodium [Moles/Vol] 133 mmol/L Low 136-145 [facility] Comment on above: Performed By: #### L 500.2500 ####[facility] [address] [place], [address] Urea nitrogen [Mass/Vol] 84 mg/dL High 7-18 [facility] Comment on above: Performed By: #### L 500.2500 ####[facility] [address] [place], [address] Basophil percentageOrdered B y: Nando Wiggins on 07-02-2024 Basophils/100 WBC (Bld) 0.3 % 0-1 [facility] Bedside Glucoseon 07-02-2024 FINGERSTICK GLU 230 mg/dL High 74-106 [facility] Comment on above: Result Comment: FANG TAYLOR OF PATIENT CARE PER NURSING PROTOCOL Performed By: #### L 501.080 ####[facility] [address] [place], [address] Carbon dioxide measurementOr dered By: Fernando Oliveros on 07-02-2024 CO2 [Moles/Vol] 26.0 mmol/L 21.0-32.0 [facility] Carbon dioxide measurementOr dered By: Nando Wiggins on 07-02-2024 CO2 [Moles/Vol] 25.0 mmol/L 21.0-32.0 [facility] Chloride measurementOrdered By: Fernando Oliveros on 07-02-2024 Chloride [Moles/Vol] 98 mmol/L 98-107 [facility] Chloride measurementOrdered By: Nando Wiggins on 07-02-2024 Chloride [Moles/Vol] 96 mmol/L Low 98-107 [facility] Emergency Department Summary on 07-02-2024 Emergency Department Summary Normal [facility] Eosinophil percentageOrdered By: Efewongwolf Wiggins on 07-02-2024 Eosinophils/100 WBC (Bld) 3.0 % 0-5 [facility] Erythrocyte distribution wid th ratioOrdered By: Nando Wiggins on 07-02-2024 Erythrocyte distribution width (RBC) [Ratio] 17.2 % High 11.6-14.6 [facility] Erythrocyte distribution wid th standard deviationOrdered By: Nando Wiggins on 07-02-2024 Erythrocyte distribution width (RBC) [Ratio] 58.0 fl High 35.1-43.9 [facility] Glomerular filtration rate ( GFR) estimationOrdered By: Fernando Oliveros on 07-02-2024 GFR/1.73 sq M.predicted among non-blacks MDRD (S/P/Bld) [Vol rate/Area] 13 mL/min/{1.73_m2} Low >60 [facility] Glomerular filtration rate ( GFR) estimationOrdered By: Nando Wiggins on 07-02-2024 GFR/1.73 sq M.predicted among non-blacks MDRD (S/P/Bld) [Vol rate/Area] 8 mL/min/{1.73_m2} Low >60 [facility] Glucose measurementOrdered B y: Fernando Oliveros on 07-02-2024 Glucose [Mass/Vol] 134 mg/dL High 74-106 [facility] Glucose measurementOrdered B y: Nando Wiggins on 07-02-2024 Glucose [Mass/Vol] 134 mg/dL High 74-106 [facility] Glucose measurement at [facility] deOrdered By: Fernando Oliveros on 07-02-2024 Glucose [Mass/Vol] 230 mg/dL High 74-106 [facility] H AND P Exam - Hospitaliston 07-02-2024 H&P Exam - Hospitalist Normal [facility] Hematocrit Auto (Bld) [Volum e fraction]Ordered By: Nando Wiggins on 07-02-2024 Hematocrit (Bld) [Volume fraction] 25.7 % Low 40-54 [facility] Hemoglobin measurementOrdere d By: Deblilian Meeklakshminereida on 07-02-2024 Hemoglobin (Bld) [Mass/Vol] 8.0 g/dL Low 13.0-16.5 [facility] Immature granulocytes/100 WB C Auto (Bld)Ordered By: Nando Wiggins on 07-02-2024 Immature granulocytes/100 WBC (Bld) 0.500 % 0.0-0.9 [facility] MCV (mean corpuscular volume ) determinationOrdered By: Nando Wiggins on 07-02-2024 MCV (RBC) [Entitic vol] 96.3 fL High 80-94 [facility] Mean corpuscular hemoglobin (MCH) determinationOrdered By: Nando Wiggins on 07-02-2024 MCH (RBC) [Entitic mass] 30.0 pg 27.0-32.0 [facility] Monocyte percentageOrdered B y: Nando Edenlakshminereida on 07-02-2024 Monocytes/100 WBC (Bld) 11.7 % High 0-10 [facility] Neutrophil percentageOrdered By: Nando Wiggins on 07-02-2024 Neutrophils/100 WBC (Bld) 64.2 % 47-70 [facility] Platelet countOrdered By: Kathie valenzuelasrinathwolf Wiggins on 07-02-2024 Platelets (Bld) [#/Vol] 198 10*3/uL 150-450 [facility] Potassium measurementOrdered By: Fernando Oliveros on 07-02-2024 Potassium [Moles/Vol] 4.3 mmol/L 3.5-5.1 [facility] Potassium measurementOrdered By: Nadno Wiggins on 07-02-2024 Potassium [Moles/Vol] 5.9 mmol/L High 3.5-5.1 [facility] RBC Auto (Bld) [#/Vol]Ordere d By: Nando Wiggins on 07-02-2024 RBC (Bld) [#/Vol] 2.67 10*6/uL Low 4.6-6.2 [facility] Serum or plasma calcium lilli urement (mass/volume)Ordered By: Fernando Oliveros on 07-02-2024 Calcium [Mass/Vol] 9.1 mg/dL 8.5-10.1 [facility] Serum or plasma calcium lilli urement (mass/volume)Ordered By: Nando Wiggins on 07-02-2024 Calcium [Mass/Vol] 8.1 mg/dL Low 8.5-10.1 [facility] Serum or plasma creatinine m easurement (mass/volume)Ordered By: Fernando Oliveros on 07-02-2024 Creatinine [Mass/Vol] 4.63 mg/dL High 0.70-1.30 [facility] Serum or plasma creatinine m easurement (mass/volume)Ordered By: Nando Wiggins on 07-02-2024 Creatinine [Mass/Vol] 7.24 mg/dL High 0.70-1.30 [facility] Serum or plasma urea nitroge n measurement (mass/volume)Ordered By: Fernando Oliverso on 07-02-2024 Urea nitrogen [Mass/Vol] 84 mg/dL High 7-18 [facility] Serum or plasma urea nitroge n measurement (mass/volume)Ordered By: Nando Wiggins on 07-02-2024 Urea nitrogen [Mass/Vol] 126 mg/dL High 7-18 [facility] Sodium levelOrdered By: Fernando Oliveros on 07-02-2024 Sodium [Moles/Vol] 133 mmol/L Low 136-145 [facility] Sodium levelOrdered By: Deb Wiggins on 07-02-2024 Sodium [Moles/Vol] 130 mmol/L Low 136-145 [facility] White blood cell (WBC) count Ordered By: Nando Wiggins on 07-02-2024 WBC (Bld) [#/Vol] 9.3 10*3/uL 4.4-11.0 [facility] Absolute lymphocyte countOrd ered By: Nando Wiggins on 06-25-2024 Lymphocytes Auto (Unsp spec) [#/Vol] 2.51 10*3/uL 0.83-4.51 [facility] Automated lymphocyte count a s percentage of total leukocytesOrdered By: Nando Wiggins on 06-25-2024 Lymphocytes/100 WBC Auto (Unsp spec) 29.7 % 19-41 [facility] Basophil percentageOrdered B y: Nando Wiggins on 06-25-2024 Basophils/100 WBC (Bld) 0.6 % 0-1 [facility] Carbon dioxide measurementOr dered By: Nando Wiggins on 06-25-2024 CO2 [Moles/Vol] 27.0 mmol/L 21.0-32.0 [facility] Chloride measurementOrdered By: Nando Wiggins on 06-25-2024 Chloride [Moles/Vol] 96 mmol/L Low 98-107 [facility] Eosinophil percentageOrdered By: Nando Wiggins on 06-25-2024 Eosinophils/100 WBC (Bld) 3.5 % 0-5 [facility] Erythrocyte distribution wid th ratioOrdered By: Nando Wiggins on 06-25-2024 Erythrocyte distribution width (RBC) [Ratio] 15.1 % High 11.6-14.6 [facility] Erythrocyte distribution wid th standard deviationOrdered By: Nando Wiggins on 06-25-2024 Erythrocyte distribution width (RBC) [Ratio] 52.1 fl High 35.1-43.9 [facility] Glomerular filtration rate ( GFR) estimationOrdered By: Nando Wiggins on 06-25-2024 GFR/1.73 sq M.predicted among non-blacks MDRD (S/P/Bld) [Vol rate/Area] 11 mL/min/{1.73_m2} Low >60 [facility] Glucose measurementOrdered B y: Nando Wiggins on 06-25-2024 Glucose [Mass/Vol] 136 mg/dL High 74-106 [facility] Hematocrit Auto (Bld) [Volum e fraction]Ordered By: Nando Wiggins on 06-25-2024 Hematocrit (Bld) [Volume fraction] 27.3 % Low 40-54 [facility] Hemoglobin measurementOrdere d By: Kathiebiancalilian Meeklakshminereida on 06-25-2024 Hemoglobin (Bld) [Mass/Vol] 8.0 g/dL Low 13.0-16.5 [facility] Immature granulocytes/100 WB C Auto (Bld)Ordered By: Nando Wiggins on 06-25-2024 Immature granulocytes/100 WBC (Bld) 1.500 % High 0.0-0.9 [facility] MCV (mean corpuscular volume ) determinationOrdered By: Nando Wiggins on 06-25-2024 MCV (RBC) [Entitic vol] 95.5 fL High 80-94 [facility] Mean corpuscular hemoglobin (MCH) determinationOrdered By: Nando Wiggins on 06-25-2024 MCH (RBC) [Entitic mass] 28.0 pg 27.0-32.0 [facility] Monocyte percentageOrdered B y: Debsrinathwolf Edenlakshminereida on 06-25-2024 Monocytes/100 WBC (Bld) 8.3 % 0-10 [facility] Neutrophil percentageOrdered By: fili Wiggins on 06-25-2024 Neutrophils/100 WBC (Bld) 56.4 % 47-70 [facility] Platelet countOrdered By: Kathie Wiggins on 06-25-2024 Platelets (Bld) [#/Vol] 210 10*3/uL 150-450 [facility] Potassium measurementOrdered By: Nando Wiggins on 06-25-2024 Potassium [Moles/Vol] 4.2 mmol/L 3.5-5.1 [facility] RBC Auto (Bld) [#/Vol]Ordere d By: Debsrinathwolf Wiggins on 06-25-2024 RBC (Bld) [#/Vol] 2.86 10*6/uL Low 4.6-6.2 [facility] Serum or plasma calcium lilli urement (mass/volume)Ordered By: Nando Wiggins on 06-25-2024 Calcium [Mass/Vol] 9.0 mg/dL 8.5-10.1 [facility] Serum or plasma creatinine m easurement (mass/volume)Ordered By: Nando Wiggins on 06-25-2024 Creatinine [Mass/Vol] 5.23 mg/dL High 0.70-1.30 [facility] Serum or plasma urea nitroge n measurement (mass/volume)Ordered By: Nando Wiggins on 06-25-2024 Urea nitrogen [Mass/Vol] 72 mg/dL High 7-18 [facility] Sodium levelOrdered By: Deb rosejeremie Rosalie on 06-25-2024 Sodium [Moles/Vol] 134 mmol/L Low 136-145 [facility] White blood cell (WBC) count Ordered By: Nando Wiggins on 06-25-2024 WBC (Bld) [#/Vol] 8.5 10*3/uL 4.4-11.0 [facility] MR/BMS.BVSon 06-20-2024 MR/BMS.BVS Normal [facility] Absolute lymphocyte countOrd ered By: Nando Wiggins on 06-18-2024 Lymphocytes Auto (Unsp spec) [#/Vol] 2.74 10*3/uL 0.83-4.51 [facility] Automated lymphocyte count a s percentage of total leukocytesOrdered By: Nando Wiggins on 06-18-2024 Lymphocytes/100 WBC Auto (Unsp spec) 31.0 % 19-41 [facility] Basophil percentageOrdered B y: Nando Wiggins on 06-18-2024 Basophils/100 WBC (Bld) 0.6 % 0-1 [facility] Carbon dioxide measurementOr dered By: Nando Wiggins on 06-18-2024 CO2 [Moles/Vol] 32.0 mmol/L 21.0-32.0 [facility] Chloride measurementOrdered By: Nando Wiggins on 06-18-2024 Chloride [Moles/Vol] 95 mmol/L Low 98-107 [facility] Eosinophil percentageOrdered By: Nando Wiggins on 06-18-2024 Eosinophils/100 WBC (Bld) 3.1 % 0-5 [facility] Erythrocyte distribution wid th ratioOrdered By: Debsrinathwolf Wiggins on 06-18-2024 Erythrocyte distribution width (RBC) [Ratio] 14.6 % 11.6-14.6 [facility] Erythrocyte distribution wid th standard deviationOrdered By: Debsalinaswolf Wiggins on 06-18-2024 Erythrocyte distribution width (RBC) [Ratio] 50.6 fl High 35.1-43.9 [facility] Glomerular filtration rate ( GFR) estimationOrdered By: Nando Wiggins on 06-18-2024 GFR/1.73 sq M.predicted among non-blacks MDRD (S/P/Bld) [Vol rate/Area] 12 mL/min/{1.73_m2} Low >60 [facility] Glucose measurementOrdered B y: Nando Wiggins on 06-18-2024 Glucose [Mass/Vol] 81 mg/dL 74-106 [facility] Hematocrit Auto (Bld) [Volum e fraction]Ordered By: Nando Wiggins on 06-18-2024 Hematocrit (Bld) [Volume fraction] 28.6 % Low 40-54 [facility] Hemoglobin measurementOrdere d By: Debsrinathwolf Wiggins on 06-18-2024 Hemoglobin (Bld) [Mass/Vol] 8.4 g/dL Low 13.0-16.5 [facility] Immature granulocytes/100 WB C Auto (Bld)Ordered By: Nando Wiggins 06-18-2024 Immature granulocytes/100 WBC (Bld) 0.300 % 0.0-0.9 [facility] MCV (mean corpuscular volume ) determinationOrdered By: Nando Wiggins on 06-18-2024 MCV (RBC) [Entitic vol] 95.0 fL High 80-94 [facility] Mean corpuscular hemoglobin (MCH) determinationOrdered By: biancasalinaswolf Wiggins on 06-18-2024 MCH (RBC) [Entitic mass] 27.9 pg 27.0-32.0 [facility] Monocyte percentageOrdered B y: biancasalinaswolf Wiggins on 06-18-2024 Monocytes/100 WBC (Bld) 8.3 % 0-10 [facility] Neutrophil percentageOrdered By: Nando Wiggins on 06-18-2024 Neutrophils/100 WBC (Bld) 56.7 % 47-70 [facility] Platelet countOrdered By: Kathie Wiggins on 06-18-2024 Platelets (Bld) [#/Vol] 301 10*3/uL 150-450 [facility] Potassium measurementOrdered By: Nando Wiggins on 06-18-2024 Potassium [Moles/Vol] 4.7 mmol/L 3.5-5.1 [facility] RBC Auto (Bld) [#/Vol]Ordere d By: Nando Wiggins on 06-18-2024 RBC (Bld) [#/Vol] 3.01 10*6/uL Low 4.6-6.2 [facility] Serum or plasma calcium lilli urement (mass/volume)Ordered By: Nando Wiggins on 06-18-2024 Calcium [Mass/Vol] 9.5 mg/dL 8.5-10.1 [facility] Serum or plasma creatinine m easurement (mass/volume)Ordered By: Nando Wiggins on 06-18-2024 Creatinine [Mass/Vol] 5.06 mg/dL High 0.70-1.30 [facility] Serum or plasma urea nitroge n measurement (mass/volume)Ordered By: Nando Wiggins on 06-18-2024 Urea nitrogen [Mass/Vol] 69 mg/dL High 7-18 [facility] Sodium levelOrdered By: Deb rosetirsonereida Wiggins on 06-18-2024 Sodium [Moles/Vol] 134 mmol/L Low 136-145 [facility] White blood cell (WBC) count Ordered By: Nando Wiggins on 06-18-2024 WBC (Bld) [#/Vol] 8.8 10*3/uL 4.4-11.0 [facility] Absolute lymphocyte countOrd ered By: Nando Wiggins on 06-11-2024 Lymphocytes Auto (Unsp spec) [#/Vol] 2.00 10*3/uL 0.83-4.51 [facility] Automated lymphocyte count a s percentage of total leukocytesOrdered By: Nando Wiggins on 06-11-2024 Lymphocytes/100 WBC Auto (Unsp spec) 25.4 % 19-41 [facility] Basophil percentageOrdered B y: Nando Wiggins on 06-11-2024 Basophils/100 WBC (Bld) 0.6 % 0-1 [facility] Carbon dioxide measurementOr dered By: Nando Wiggins on 06-11-2024 CO2 [Moles/Vol] 30.0 mmol/L 21.0-32.0 [facility] Chloride measurementOrdered By: Nando Wiggins on 06-11-2024 Chloride [Moles/Vol] 94 mmol/L Low 98-107 [facility] Culture, Anaerobic Any Sourc reed 06-11-2024 CUAN Right Forefoot No growth in 5 days. Normal [facility] Comment on above: Performed By: #### M 600.2200, M300.2000, M100.4001, M300.3000, M100.2000, M100.3000, M600.2000 ####[facility] [address] [place], [address] Eosinophil percentageOrdered By: Nando Wiggins on 06-11-2024 Eosinophils/100 WBC (Bld) 2.7 % 0-5 [facility] Erythrocyte distribution wid th ratioOrdered By: Nando Wiggins on 06-11-2024 Erythrocyte distribution width (RBC) [Ratio] 14.6 % 11.6-14.6 [facility] Erythrocyte distribution wid th standard deviationOrdered By: Nando Wiggins on 06-11-2024 Erythrocyte distribution width (RBC) [Ratio] 50.4 fl High 35.1-43.9 [facility] Glomerular filtration rate ( GFR) estimationOrdered By: Nando Wiggins on 06-11-2024 GFR/1.73 sq M.predicted among non-blacks MDRD (S/P/Bld) [Vol rate/Area] 10 mL/min/{1.73_m2} Low >60 [facility] Glucose measurementOrdered B y: Nando Wiggins on 06-11-2024 Glucose [Mass/Vol] 222 mg/dL High 74-106 [facility] Hematocrit Auto (Bld) [Volum e fraction]Ordered By: Nando Wiggins on 06-11-2024 Hematocrit (Bld) [Volume fraction] 27.0 % Low 40-54 [facility] Hemoglobin measurementOrdere d By: Nando Wiggins on 06-11-2024 Hemoglobin (Bld) [Mass/Vol] 8.1 g/dL Low 13.0-16.5 [facility] Immature granulocytes/100 WB C Auto (Bld)Ordered By: Kathiebiancalilian Meeklakshminereida on 06-11-2024 Immature granulocytes/100 WBC (Bld) 0.500 % 0.0-0.9 [facility] MCV (mean corpuscular volume ) determinationOrdered By: Kathiebiancalilian Meeklakshminereida on 06-11-2024 MCV (RBC) [Entitic vol] 94.7 fL High 80-94 [facility] Mean corpuscular hemoglobin (MCH) determinationOrdered By: Nando Wiggins on 06-11-2024 MCH (RBC) [Entitic mass] 28.4 pg 27.0-32.0 [facility] Monocyte percentageOrdered B y: Nando Wiggins on 06-11-2024 Monocytes/100 WBC (Bld) 9.7 % 0-10 [facility] Neutrophil percentageOrdered By: Kathiebiancalilian Meeklakshminereida on 06-11-2024 Neutrophils/100 WBC (Bld) 61.1 % 47-70 [facility] Platelet countOrdered By: Kathie fili Brownenereida on 06-11-2024 Platelets (Bld) [#/Vol] 295 10*3/uL 150-450 [facility] Potassium measurementOrdered By: Nando Wiggins on 06-11-2024 Potassium [Moles/Vol] 5.1 mmol/L 3.5-5.1 [facility] RBC Auto (Bld) [#/Vol]Ordere d By: Nando Wiggins on 06-11-2024 RBC (Bld) [#/Vol] 2.85 10*6/uL Low 4.6-6.2 [facility] Serum or plasma calcium lilli urement (mass/volume)Ordered By: Nando Wiggins on 06-11-2024 Calcium [Mass/Vol] 9.1 mg/dL 8.5-10.1 [facility] Serum or plasma creatinine m easurement (mass/volume)Ordered By: Nando Wiggins on 06-11-2024 Creatinine [Mass/Vol] 5.75 mg/dL High 0.70-1.30 [facility] Serum or plasma urea nitroge n measurement (mass/volume)Ordered By: Nando Wiggins on 06-11-2024 Urea nitrogen [Mass/Vol] 69 mg/dL High 7-18 [facility] Sodium levelOrdered By: Deb Wiggins on 06-11-2024 Sodium [Moles/Vol] 131 mmol/L Low 136-145 [facility] White blood cell (WBC) count Ordered By: Nando Wiggins on 06-11-2024 WBC (Bld) [#/Vol] 7.9 10*3/uL 4.4-11.0 [facility] Bilirubin directOrdered By: Nando Wiggins on 06-08-2024 Bilirubin.direct [Mass/Vol] 0.14 mg/dL 0.00-0.30 [facility] Bilirubin, totalOrdered By: Nando Wiggins on 06-08-2024 Bilirubin [Mass/Vol] 0.40 mg/dL 0.20-1.00 [facility] Hemoglobin A1c percentageOrd ered By: Nando Wiggins on 06-08-2024 HbA1c (Bld) [Mass fraction] 7.7 % High 3.8-5.6 [facility] No Panel InformationOrdered By: Nando Wiggins on 06-08-2024 14 U/L Low 15-37 [facility] Serum globulin measurementOr dered By: Nando Wiggins on 06-08-2024 Globulin (S) [Mass/Vol] 4.4 g/dL High 2.2-4.2 [facility] Serum or plasma alanine hawkins otransferase (ALT) measurementOrdered By: Nando Wiggins on 06-08-2024 ALT [Catalytic activity/Vol] 7 U/L Low 16-61 [facility] Serum or plasma albumin lilli urement (mass/volume)Ordered By: Nando Wiggins on 06-08-2024 Albumin [Mass/Vol] 2.2 g/dL Low 3.2-5.0 [facility] Serum or plasma alkaline penelope sphatase measurementOrdered By: Nando Wiggins on 06-08-2024 ALP [Catalytic activity/Vol] 56 U/L 45-117 [facility] Total proteinOrdered By: Sinan kermitwolf Wiggins on 06-08-2024 Protein [Mass/Vol] 6.6 g/dL 6.4-8.2 [facility] Wound Cultureon 06-08-2024 WC Right Forefoot No growth aerobically. Normal [facility] Comment on above: Performed By: #### M 600.2200, M300.2000, M100.4001, M300.3000, M100.2000, M100.3000, M600.2000 ####[facility] [address] [place], [place], [id number] Acid fast bacillus (AFB) cul tureOrdered By: Des Ruelas on 06-06-2024 Mycobacterium sp identified Org specific cx Nom (Unsp spec) [facility] Anaerobic cultureOrdered By: Des Ruelas on 06-06-2024 Bacteria identified Anaer cx Nom (Unsp spec) No growth in 5 days. [facility] Bedside Glucoseon 06-06-2024 FINGERSTICK GLU 102 mg/dL Normal 74-106 [facility] Comment on above: Result Comment: FANG GEMENT OF PATIENT CARE PER NURSING PROTOCOL Performed By: #### L 501.080 ####[facility] [address] [place], [place], [id number] Bilirubin directOrdered By: Nando Wiggins on 06-06-2024 Bilirubin.direct [Mass/Vol] 0.12 mg/dL 0.00-0.30 [facility] Bilirubin, totalOrdered By: Nando Wiggins on 06-06-2024 Bilirubin [Mass/Vol] 0.30 mg/dL 0.20-1.00 [facility] Decalcification bone/plaqueo n 06-06-2024 Decalcification bone/plaque Normal [facility] Comment on above: Performed By: #### P DEC ####[facility] [address] [place], [address] Foot min 3 Viewson 5 Foot min 3 Views Normal [facility] Fungus cultureOrdered By: Kana Ruelas on 06-06-2024 Fungus identified Cx Nom (Unsp spec) [facility] Fungus stainOrdered By: Juve Ruelas on 06-06-2024 Fungus identified Fungus stain Nom (Unsp spec) [facility] Glucose measurement at [facility] deOrdered By: Des Ruelas on 06-06-2024 Glucose [Mass/Vol] 102 mg/dL 74-106 [facility] Gram Stainon 06-06-2024 GS Right Forefoot Gram Stain 4+ Red Blood Cells 1+ White Blood Cells No organisms seen Normal [facility] Comment on above: Performed By: #### M 600.2200, M300.2000, M100.4001, M300.3000, M100.2000, M100.3000, M600.2000 ####[facility] [address] [place], [address] Gram stainOrdered By: Des Ruelas on 06-06-2024 Microscopic observation Gram stain Nom (Unsp spec) [facility] Hemoglobin A1c percentageOrd ered By: Nando Wiggins on 06-06-2024 HbA1c (Bld) [Mass fraction] 8.0 % High 3.8-5.6 [facility] MR/POSTOP.ANEon 06-06-2024 MR/POSTOP.ANE Normal [facility] MR/GNINOGDF0fv 06-06-2024 MR/POSTOPAN2 Normal [facility] No Panel InformationOrdered By: Nando Wiggins on 06-06-2024 13 U/L Low 15-37 [facility] Operative Reporton 5 Operative Report Normal [facility] Serum globulin measurementOr dered By: Kathiebiancasrinathwolf Edenlakshminereida on 06-06-2024 Globulin (S) [Mass/Vol] 5.1 g/dL High 2.2-4.2 [facility] Serum or plasma alanine hawkins otransferase (ALT) measurementOrdered By: Kathiebiancasrinathwolf Edenlakshminereida on 06-06-2024 ALT [Catalytic activity/Vol] 18 U/L 16-61 [facility] Serum or plasma albumin lilli urement (mass/volume)Ordered By: Nando Meeklakshminereida on 06-06-2024 Albumin [Mass/Vol] 2.4 g/dL Low 3.2-5.0 [facility] Serum or plasma alkaline penelope sphatase measurementOrdered By: [facility] Edenlakshminereida on 06-06-2024 ALP [Catalytic activity/Vol] 68 U/L 45-117 [facility] Total proteinOrdered By: Sinannereida schmidt Meeklakshminereida on 06-06-2024 Protein [Mass/Vol] 7.5 g/dL 6.4-8.2 [facility] Wound Cultureon 06-05-2024 [facility] Comment on above: Performed By: #### M 100.2000, M100.3000, M100.4001 ####[facility] [address] [place], [place], [address] MR/PAT.ANEon 06-04-2024 MR/PATJAYA [facility] Joaquín 05-30-2024 [facility] PERLA THOMPSON ([id number]) 1935 M Date Time Provider Department 05/30/24 HUSAM YANJOAQUINA During your visit today, we recorded the following information about you: Catalina Ruth RN 05/30/2024 10:41 AM Signed Jey Pts son in law called in and reports Pt is now in a [facility] facility. He states [facility] big toe and the ball of his foot in April at the ER. He states they want to remove the rest of the toes as soon as they can, but they don't want to have to do it in the ER. He states that surgical supply assistant for this provider is going to be sending over a surgical release for for the providers office to sign. Pt was last seen by Lauren Podlogar MANAGER MASSAGE DEPARTMENT on 03/28/24, he had an A1C and CMP done. I don't know if Pt would been to come in and be seen again before forms could be signed. Forms are going to be sent to office Attn: Marilia. Please call and advise if anything else will need to be done. Alanna Veloz LPN 05/30/2024 11:02 AM Signed Phoned patients son, Jey back to advise if patient is at [facility] and on a skilled unit under Dr Wiggins's care we recommend she fill the clearance form out. Jey explained that Dr Wiggins rounds on Tuesdays when patient is at the wound clinic for his weekly debridments. Explained to son that we typically need to obtain labs and EKG and patient would need to be seen in office. 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 Please advise. NIKIA Brito Christopher B, MD 05/30/2024 11:13 AM Signed [facility] a [facility] the [facility], it would be most convenient for the [...] office or could utilize nursing homes Dr. Baptistes understanding. NIKIA Seay Michelle, LPN 05/30/2024 5:55 PM Signed Son in law calling in to advise office that Cardiology Dr. Yunior Tong from the [facility] has signed off on medical [...] clear him. If he is in the [facility] with Dr. Wiggins, they should have access [...] triage nurse the ok/information. NIKIA Brito Amanda, RN 06/05/2024 3:26 PM Signed Closing encounter as [...] Surgical R (more content not included)... Normal [facility] History AND Physic ariella 05-29-2024 Wound Ctr History & Physical Normal [facility] Operative Reporton Operative Report Normal [facility] History AND Physic ariella 05-17-2024 Wound Ctr History & Physical Normal [facility] Basic Metabolic Profile (BMP )on 05-14-2024 BUN Normal 7-18 [facility] Comment on above: Result Comment: Canc elled via OM: Order cancelled - Patient discharged Performed By: #### L 500.2500 ####[facility] [address] [place], [place], [address] Result Comment: Canc elled via OM: MD Ordered Performed By: #### L 100.0500, L500.2500 ####[facility] [address] [place], [address] BUN/CRE Normal 10-20 [facility] Comment on above: Result Comment: Canc elled via OM: Order cancelled - Patient discharged Performed By: #### L 500.2500 ####[facility] [address] [place], [address] Result Comment: Canc elled via OM: MD Ordered Performed By: #### L 100.0500, L500.2500 ####[facility] [address] [place], [address] CA,Total Normal 8.5-10.1 [facility] Comment on above: Result Comment: Canc elled via OM: Order cancelled - Patient discharged Performed By: #### L 500.2500 ####[facility] [address] [place], [address] Result Comment: Canc elled via OM: MD Ordered Performed By: #### L 100.0500, L500.2500 ####[facility] [address] [place], [address] CL Normal 98-107 [facility] Comment on above: Result Comment: Canc elled via OM: Order cancelled - Patient discharged Performed By: #### L 500.2500 ####[facility] [address] [place], [address] Result Comment: Canc elled via OM: MD Ordered Performed By: #### L 100.0500, L500.2500 ####[facility] [address] [place], [address] CO2 Normal 21.0-32.0 [facility] Comment on above: Result Comment: Canc elled via OM: Order cancelled - Patient discharged Performed By: #### L 500.2500 ####[facility] [address] [place], [address] Result Comment: Canc elled via OM: MD Ordered Performed By: #### L 100.0500, L500.2500 ####[facility] [address] [place], [address] CREAT,SERUM Normal 0.70-1.30 [facility] Comment on above: Result Comment: Canc elled via OM: Order cancelled - Patient discharged Performed By: #### L 500.2500 ####[facility] [address] [place], [address] Result Comment: Canc elled via OM: MD Ordered Performed By: #### L 100.0500, L500.2500 ####[facility] [address], [address] EST GFR Normal >60 [facility] Comment on above: Result Comment: Canc elled via OM: Order cancelled - Patient discharged Performed By: #### L 500.2500 ####[facility] [address] [place], [address] Result Comment: Canc elled via OM: MD Ordered Performed By: #### L 100.0500, L500.2500 ####[facility] [address] [place], [address] EST GFR - AA Normal >60 [facility] Comment on above: Result Comment: Canc elled via OM: Order cancelled - Patient discharged Performed By: #### L 500.2500 ####[facility] [address] [place], [address] Result Comment: Canc elled via OM: MD Ordered Performed By: #### L 100.0500, L500.2500 ####[facility] [address] [place], [address] GAP Normal 5-15 [facility] Comment on above: Result Comment: Canc elled via OM: Order cancelled - Patient discharged Performed By: #### L 500.2500 ####[facility] [address] [place], [address] Result Comment: Canc elled via OM: MD Ordered Performed By: #### L 100.0500, L500.2500 ####[facility] [address] [place], [address] GLU Normal 74-106 [facility] Comment on above: Result Comment: Canc elled via OM: Order cancelled - Patient discharged Performed By: #### L 500.2500 ####[facility] [address], [address] Result Comment: Canc elled via OM: MD Ordered Performed By: #### L 100.0500, L500.2500 ####[facility] [address] [place], [address] Potassium Normal 3.5-5.1 [facility] Comment on above: Result Comment: Canc elled via OM: Order cancelled - Patient discharged Performed By: #### L 500.2500 ####[facility] [address] [place], [address] Result Comment: Canc elled via OM: MD Ordered Performed By: #### L 100.0500, L500.2500 ####[facility] [address] [place], [address] Basic Metabolic Profile (BMP) Normal 136-145 [facility] Comment on above: Result Comment: Canc elled via OM: Order cancelled - Patient discharged Performed By: #### L 500.2500 ####[facility] [address] [place], [address] Result Comment: Canc elled via OM: MD Ordered Performed By: #### L 100.0500, L500.2500 ####[facility] [address] [place], [address] CBC-Complete Blood Cnt No Di ffon 05-14-2024 HCT Normal 40-54 [facility] Comment on above: Result Comment: Canc elled via OM: Order cancelled - Patient discharged Performed By: #### L 100.0500 ####[facility] [address] [place], [address] HGB Normal 13.0-16.5 [facility] Comment on above: Result Comment: Canc elled via OM: Order cancelled - Patient discharged Performed By: #### L 100.0500 ####[facility] [address] [place], [address] MCH Normal 27.0-32.0 [facility] Comment on above: Result Comment: Canc elled via OM: Order cancelled - Patient discharged Performed By: #### L 100.0500 ####[facility] [address] [place], [address] MCHC Normal 32-36 [facility] Comment on above: Result Comment: Canc elled via OM: Order cancelled - Patient discharged Performed By: #### L 100.0500 ####[facility] [address] [place], [address] MCV Normal 80-94 [facility] Comment on above: Result Comment: Canc elled via OM: Order cancelled - Patient discharged Performed By: #### L 100.0500 ####[facility] [address] [place], [address] PLT Normal 150-450 [facility] Comment on above: Result Comment: Canc elled via OM: Order cancelled - Patient discharged Performed By: #### L 100.0500 ####[facility] [address] [place], [address] RBC Normal 4.6-6.2 [facility] Comment on above: Result Comment: Canc elled via OM: Order cancelled - Patient discharged Performed By: #### L 100.0500 ####[facility] [address] [place], [address] RDW CV Normal 11.6-14.6 [facility] Comment on above: Result Comment: Canc elled via OM: Order cancelled - Patient discharged Performed By: #### L 100.0500 ####[facility] [address] [place], [address] RDW SD Normal 35.1-43.9 [facility] Comment on above: Result Comment: Canc elled via OM: Order cancelled - Patient discharged Performed By: #### L 100.0500 ####[facility] [address] [place], [address] WBC Normal 4.4-11.0 [facility] Comment on above: Result Comment: Canc elled via OM: Order cancelled - Patient discharged Performed By: #### L 100.0500 ####[facility] [address] [place], [address] HCT Normal 40-54 [facility] Comment on above: Result Comment: Canc elled via OM: MD Ordered Performed By: #### L 100.0500, L500.2500 ####[facility] [address] [place], [address] HGB Normal 13.0-16.5 [facility] Comment on above: Result Comment: Canc elled via OM: MD Ordered Performed By: #### L 100.0500, L500.2500 ####[facility] [address] [place], [address] MCH Normal 27.0-32.0 [facility] Comment on above: Result Comment: Canc elled via OM: MD Ordered Performed By: #### L 100.0500, L500.2500 ####[facility] [address] [place], [address] MCHC Normal 32-36 [facility] Comment on above: Result Comment: Canc elled via OM: MD Ordered Performed By: #### L 100.0500, L500.2500 ####[facility] [address] [place], [address] MCV Normal 80-94 [facility] Comment on above: Result Comment: Canc elled via OM: MD Ordered Performed By: #### L 100.0500, L500.2500 ####[facility] [address] [place], [address] PLT Normal 150-450 [facility] Comment on above: Result Comment: Canc elled via OM: MD Ordered Performed By: #### L 100.0500, L500.2500 ####[facility] [address] [place], [address] RBC Normal 4.6-6.2 [facility] Comment on above: Result Comment: Canc elled via OM: MD Ordered Performed By: #### L 100.0500, L500.2500 ####[facility] [address] [place], [address] RDW CV Normal 11.6-14.6 [facility] Comment on above: Result Comment: Canc elled via OM: MD Ordered Performed By: #### L 100.0500, L500.2500 ####[facility] [address] [place], [address] RDW SD Normal 35.1-43.9 [facility] Comment on above: Result Comment: Canc elled via OM: MD Ordered Performed By: #### L 100.0500, L500.2500 ####[facility] [address] [place], [address] WBC Normal 4.4-11.0 [facility] Comment on above: Result Comment: Canc elled via OM: MD Ordered Performed By: #### L 100.0500, L500.2500 ####[facility] [address] [place], [address] Basic Metabolic Profile (BMP )on 05-13-2024 BUN Normal 7-18 [facility] Comment on above: Result Comment: Canc elled via OM: MD Ordered Performed By: #### L 500.2500, L100.0500 ####[facility] [address] [place], [address] BUN/CRE Normal 10-20 [facility] Comment on above: Result Comment: Canc elled via OM: MD Ordered Performed By: #### L 500.2500, L100.0500 ####[facility] [address] [place], [address] CA,Total Normal 8.5-10.1 [facility] Comment on above: Result Comment: Canc elled via OM: MD Ordered Performed By: #### L 500.2500, L100.0500 ####[facility] [address] [place], [address] CL Normal 98-107 [facility] Comment on above: Result Comment: Canc elled via OM: MD Ordered Performed By: #### L 500.2500, L100.0500 ####[facility] [address] [place], [address] CO2 Normal 21.0-32.0 [facility] Comment on above: Result Comment: Canc elled via OM: MD Ordered Performed By: #### L 500.2500, L100.0500 ####[facility] [address] [place], [address] CREAT,SERUM Normal 0.70-1.30 [facility] Comment on above: Result Comment: Canc elled via OM: MD Ordered Performed By: #### L 500.2500, L100.0500 ####[facility] [address] [place], [address] EST GFR Normal >60 [facility] Comment on above: Result Comment: Canc elled via OM: MD Ordered Performed By: #### L 500.2500, L100.0500 ####[facility] [address] [place], [address] EST GFR - AA Normal >60 [facility] Comment on above: Result Comment: Canc elled via OM: MD Ordered Performed By: #### L 500.2500, L100.0500 ####[facility] [address] [place], [address] GAP Normal 5-15 [facility] Comment on above: Result Comment: Canc elled via OM: MD Ordered Performed By: #### L 500.2500, L100.0500 ####[facility] [address] [place], [address] GLU Normal 74-106 [facility] Comment on above: Result Comment: Canc elled via OM: MD Ordered Performed By: #### L 500.2500, L100.0500 ####[facility] [address] [place], [address] Potassium Normal 3.5-5.1 [facility] Comment on above: Result Comment: Canc elled via OM: MD Ordered Performed By: #### L 500.2500, L100.0500 ####[facility] [address] [place], [address] Basic Metabolic Profile (BMP) Normal 136-145 [facility] Comment on above: Result Comment: Canc elled via OM: MD Ordered Performed By: #### L 500.2500, L100.0500 ####[facility] [address] [place], [address] CBC-Complete Blood Cnt No Di ffon 05-13-2024 HCT Normal 40-54 [facility] Comment on above: Result Comment: Canc elled via OM: MD Ordered Performed By: #### L 500.2500, L100.0500 ####[facility] [address] [place], [address] HGB Normal 13.0-16.5 [facility] Comment on above: Result Comment: Canc elled via OM: MD Ordered Performed By: #### L 500.2500, L100.0500 ####[facility] [address] [place], [address] MCH Normal 27.0-32.0 [facility] Comment on above: Result Comment: Canc elled via OM: MD Ordered Performed By: #### L 500.2500, L100.0500 ####[facility] [address] [place], [address] MCHC Normal 32-36 [facility] Comment on above: Result Comment: Canc elled via OM: MD Ordered Performed By: #### L 500.2500, L100.0500 ####[facility] [address] [place], [address] MCV Normal 80-94 [facility] Comment on above: Result Comment: Canc elled via OM: MD Ordered Performed By: #### L 500.2500, L100.0500 ####[facility] [address] [place], [address] PLT Normal 150-450 [facility] Comment on above: Result Comment: Canc elled via OM: MD Ordered Performed By: #### L 500.2500, L100.0500 ####[facility] [address] [place], [address] RBC Normal 4.6-6.2 [facility] Comment on above: Result Comment: Canc elled via OM: MD Ordered Performed By: #### L 500.2500, L100.0500 ####[facility] [address] [place], [address] RDW CV Normal 11.6-14.6 [facility] Comment on above: Result Comment: Canc elled via OM: MD Ordered Performed By: #### L 500.2500, L100.0500 ####[facility] [address] [place], [address] RDW SD Normal 35.1-43.9 [facility] Comment on above: Result Comment: Canc elled via OM: MD Ordered Performed By: #### L 500.2500, L100.0500 ####[facility] [address] [place], [address] WBC Normal 4.4-11.0 [facility] Comment on above: Result Comment: Canc elled via OM: MD Ordered Performed By: #### L 500.2500, L100.0500 ####[facility] [address] [place], [address] Basic Metabolic Profile (BMP )on 05-12-2024 BUN Normal 7-18 [facility] Comment on above: Result Comment: Canc elled via OM: MD Ordered Performed By: #### L 500.2500, L100.0500 ####[facility] [address] [place], [address] Result Comment: Canc elled via OM: Order cancelled - Patient discharged Performed By: #### L 500.2500 ####[facility] [address] [place], [address] BUN/CRE Normal 10-20 [facility] Comment on above: Result Comment: Canc elled via OM: MD Ordered Performed By: #### L 500.2500, L100.0500 ####[facility] [address] [place], [address] Result Comment: Canc elled via OM: Order cancelled - Patient discharged Performed By: #### L 500.2500 ####[facility] [address] [place], [address] CA,Total Normal 8.5-10.1 [facility] Comment on above: Result Comment: Canc elled via OM: MD Ordered Performed By: #### L 500.2500, L100.0500 ####[facility] [address] [place], [address] Result Comment: Canc elled via OM: Order cancelled - Patient discharged Performed By: #### L 500.2500 ####[facility] [address] [place], [address] CL Normal 98-107 [facility] Comment on above: Result Comment: Canc elled via OM: MD Ordered Performed By: #### L 500.2500, L100.0500 ####[facility] [address] [place], [address] Result Comment: Canc elled via OM: Order cancelled - Patient discharged Performed By: #### L 500.2500 ####[facility] [address] [place], [address] CO2 Normal 21.0-32.0 [facility] Comment on above: Result Comment: Canc elled via OM: MD Ordered Performed By: #### L 500.2500, L100.0500 ####[facility] [address] [place], [address] Result Comment: Canc elled via OM: Order cancelled - Patient discharged Performed By: #### L 500.2500 ####[facility] [address] [place], [address] CREAT,SERUM Normal 0.70-1.30 [facility] Comment on above: Result Comment: Canc elled via OM: MD Ordered Performed By: #### L 500.2500, L100.0500 ####[facility] [address] [place], [address] Result Comment: Canc elled via OM: Order cancelled - Patient discharged Performed By: #### L 500.2500 ####[facility] [address] [place], [address] EST GFR Normal >60 [facility] Comment on above: Result Comment: Canc elled via OM: MD Ordered Performed By: #### L 500.2500, L100.0500 ####[facility] [address] [place], [address] Result Comment: Canc elled via OM: Order cancelled - Patient discharged Performed By: #### L 500.2500 ####[facility] [address], [address] EST GFR - AA Normal >60 [facility] Comment on above: Result Comment: Canc elled via OM: MD Ordered Performed By: #### L 500.2500, L100.0500 ####[facility] [address] [place], [address] Result Comment: Canc elled via OM: Order cancelled - Patient discharged Performed By: #### L 500.2500 ####[facility] [address] [place], [address] GAP Normal 5-15 [facility] Comment on above: Result Comment: Canc elled via OM: MD Ordered Performed By: #### L 500.2500, L100.0500 ####[facility] [address] [place], [address] Result Comment: Canc elled via OM: Order cancelled - Patient discharged Performed By: #### L 500.2500 ####[facility] [address] [place], [address] GLU Normal 74-106 [facility] Comment on above: Result Comment: Canc elled via OM: MD Ordered Performed By: #### L 500.2500, L100.0500 ####[facility] [address] [place], [address] Result Comment: Canc elled via OM: Order cancelled - Patient discharged Performed By: #### L 500.2500 ####[facility] [address] [place], [address] Potassium Normal 3.5-5.1 [facility] Comment on above: Result Comment: Canc elled via OM: MD Ordered Performed By: #### L 500.2500, L100.0500 ####[facility] [address] [place], [address] Result Comment: Canc elled via OM: Order cancelled - Patient discharged Performed By: #### L 500.2500 ####[facility] [address] [place], [address] Basic Metabolic Profile (BMP) Normal 136-145 [facility] Comment on above: Result Comment: Canc elled via OM: MD Ordered Performed By: #### L 500.2500, L100.0500 ####[facility] [address] [place], [address] Result Comment: Canc elled via OM: Order cancelled - Patient discharged Performed By: #### L 500.2500 ####[facility] [address] [place], [address] CBC-Complete Blood Cnt No Di ffon 05-12-2024 HCT Normal 40-54 [facility] Comment on above: Result Comment: Canc elled via OM: Order cancelled - Patient discharged Performed By: #### L 100.0500 ####[facility] [address] [place], [address] HGB Normal 13.0-16.5 [facility] Comment on above: Result Comment: Canc elled via OM: Order cancelled - Patient discharged Performed By: #### L 100.0500 ####[facility] [address] [place], [address] MCH Normal 27.0-32.0 [facility] Comment on above: Result Comment: Canc elled via OM: Order cancelled - Patient discharged Performed By: #### L 100.0500 ####[facility] [address] [place], [address] MCHC Normal 32-36 [facility] Comment on above: Result Comment: Canc elled via OM: Order cancelled - Patient discharged Performed By: #### L 100.0500 ####[facility] [address] [place], [address] MCV Normal 80-94 [facility] Comment on above: Result Comment: Canc elled via OM: Order cancelled - Patient discharged Performed By: #### L 100.0500 ####[facility] [address] [place], [address] PLT Normal 150-450 [facility] Comment on above: Result Comment: Canc elled via OM: Order cancelled - Patient discharged Performed By: #### L 100.0500 ####[facility] [address] [place], [address] RBC Normal 4.6-6.2 [facility] Comment on above: Result Comment: Canc elled via OM: Order cancelled - Patient discharged Performed By: #### L 100.0500 ####[facility] [address] [place], [address] RDW CV Normal 11.6-14.6 [facility] Comment on above: Result Comment: Canc elled via OM: Order cancelled - Patient discharged Performed By: #### L 100.0500 ####[facility] [address] [place], [address] RDW SD Normal 35.1-43.9 [facility] Comment on above: Result Comment: Canc elled via OM: Order cancelled - Patient discharged Performed By: #### L 100.0500 ####[facility] [address] [place], [address] WBC Normal 4.4-11.0 [facility] Comment on above: Result Comment: Canc elled via OM: Order cancelled - Patient discharged Performed By: #### L 100.0500 ####[facility] [address] [place], [address] HCT Normal 40-54 [facility] Comment on above: Result Comment: Canc elled via OM: MD Ordered Performed By: #### L 500.2500, L100.0500 ####[facility] [address] [place], [address] HGB Normal 13.0-16.5 [facility] Comment on above: Result Comment: Canc elled via OM: MD Ordered Performed By: #### L 500.2500, L100.0500 ####[facility] [address] [place], [address] MCH Normal 27.0-32.0 [facility] Comment on above: Result Comment: Canc elled via OM: MD Ordered Performed By: #### L 500.2500, L100.0500 ####[facility] [address] [place], [address] MCHC Normal 32-36 [facility] Comment on above: Result Comment: Canc elled via OM: MD Ordered Performed By: #### L 500.2500, L100.0500 ####[facility] [address] [place], [address] MCV Normal 80-94 [facility] Comment on above: Result Comment: Canc elled via OM: MD Ordered Performed By: #### L 500.2500, L100.0500 ####[facility] [address] [place], [address] PLT Normal 150-450 [facility] Comment on above: Result Comment: Canc elled via OM: MD Ordered Performed By: #### L 500.2500, L100.0500 ####[facility] [address] [place], [address] RBC Normal 4.6-6.2 [facility] Comment on above: Result Comment: Canc elled via OM: MD Ordered Performed By: #### L 500.2500, L100.0500 ####[facility] [address] [place], [address] RDW CV Normal 11.6-14.6 [facility] Comment on above: Result Comment: Canc elled via OM: MD Ordered Performed By: #### L 500.2500, L100.0500 ####[facility] [address] [place], [address] RDW SD Normal 35.1-43.9 [facility] Comment on above: Result Comment: Canc elled via OM: MD Ordered Performed By: #### L 500.2500, L100.0500 ####[facility] [address] [place], [address] WBC Normal 4.4-11.0 [facility] Comment on above: Result Comment: Canc elled via OM: MD Ordered Performed By: #### L 500.2500, L100.0500 ####[facility] [address] [place], [address] Basic Metabolic Profile (BMP )on 05-11-2024 BUN Normal 7-18 [facility] Comment on above: Result Comment: Canc elled via OM: MD Ordered Performed By: #### L 500.2500, L100.0500 ####[facility] [address] [place], [address] BUN/CRE Normal 10-20 [facility] Comment on above: Result Comment: Canc elled via OM: MD Ordered Performed By: #### L 500.2500, L100.0500 ####[facility] [address] [place], [address] CA,Total Normal 8.5-10.1 [facility] Comment on above: Result Comment: Canc elled via OM: MD Ordered Performed By: #### L 500.2500, L100.0500 ####[facility] [address] [place], [address] CL Normal 98-107 [facility] Comment on above: Result Comment: Canc elled via OM: MD Ordered Performed By: #### L 500.2500, L100.0500 ####[facility] [address] [place], [address] CO2 Normal 21.0-32.0 [facility] Comment on above: Result Comment: Canc elled via OM: MD Ordered Performed By: #### L 500.2500, L100.0500 ####[facility] [address] [place], [address] CREAT,SERUM Normal 0.70-1.30 [facility] Comment on above: Result Comment: Canc elled via OM: MD Ordered Performed By: #### L 500.2500, L100.0500 ####[facility] [address] [place], [address] EST GFR Normal >60 [facility] Comment on above: Result Comment: Canc elled via OM: MD Ordered Performed By: #### L 500.2500, L100.0500 ####[facility] [address] [place], [address] EST GFR - AA Normal >60 [facility] Comment on above: Result Comment: Canc elled via OM: MD Ordered Performed By: #### L 500.2500, L100.0500 ####[facility] [address] [place], [address] GAP Normal 5-15 [facility] Comment on above: Result Comment: Canc elled via OM: MD Ordered Performed By: #### L 500.2500, L100.0500 ####[facility] [address] [place], [address] GLU Normal 74-106 [facility] Comment on above: Result Comment: Canc elled via OM: MD Ordered Performed By: #### L 500.2500, L100.0500 ####[facility] [address] [place], [address] Potassium Normal 3.5-5.1 [facility] Comment on above: Result Comment: Canc elled via OM: MD Ordered Performed By: #### L 500.2500, L100.0500 ####[facility] [address] [place], [address] Basic Metabolic Profile (BMP) Normal 136-145 [facility] Comment on above: Result Comment: Canc elled via OM: MD Ordered Performed By: #### L 500.2500, L100.0500 ####[facility] [address] [place], [address] CBC-Complete Blood Cnt No Di ffon 05-11-2024 HCT Normal 40-54 [facility] Comment on above: Result Comment: Canc elled via OM: MD Ordered Performed By: #### L 500.2500, L100.0500 ####[facility] [address] [place], [address] HGB Normal 13.0-16.5 [facility] Comment on above: Result Comment: Canc elled via OM: MD Ordered Performed By: #### L 500.2500, L100.0500 ####[facility] [address] [place], [address] MCH Normal 27.0-32.0 [facility] Comment on above: Result Comment: Canc elled via OM: MD Ordered Performed By: #### L 500.2500, L100.0500 ####[facility] [address] [place], [address] MCHC Normal 32-36 [facility] Comment on above: Result Comment: Canc elled via OM: MD Ordered Performed By: #### L 500.2500, L100.0500 ####[facility] [address] [place], [address] MCV Normal 80-94 [facility] Comment on above: Result Comment: Canc elled via OM: MD Ordered Performed By: #### L 500.2500, L100.0500 ####[facility] [address] [place], [address] PLT Normal 150-450 [facility] Comment on above: Result Comment: Canc elled via OM: MD Ordered Performed By: #### L 500.2500, L100.0500 ####[facility] [address] [place], [address] RBC Normal 4.6-6.2 [facility] Comment on above: Result Comment: Canc elled via OM: MD Ordered Performed By: #### L 500.2500, L100.0500 ####[facility] [address] [place], [address] RDW CV Normal 11.6-14.6 [facility] Comment on above: Result Comment: Canc elled via OM: MD Ordered Performed By: #### L 500.2500, L100.0500 ####[facility] [address] [place], [address] RDW SD Normal 35.1-43.9 [facility] Comment on above: Result Comment: Canc elled via OM: MD Ordered Performed By: #### L 500.2500, L100.0500 ####[facility] [address] [place], [address] WBC Normal 4.4-11.0 [facility] Comment on above: Result Comment: Canc elled via OM: MD Ordered Performed By: #### L 500.2500, L100.0500 ####[facility] [address] [place], [address] Basic Metabolic Profile (BMP )on 05-10-2024 BUN/CRE 9.4 RATIO Low 10-20 [facility] Comment on above: Performed By: #### L 500.2500, L100.0500 ####[facility] [address] [place], [address] CA,Total 8.8 mg/dL Normal 8.5-10.1 [facility] Comment on above: Performed By: #### L 500.2500, L100.0500 ####[facility] [address] [place], [address] Chloride [Moles/Vol] 102 mmol/L Normal 98-107 [facility] Comment on above: Performed By: #### L 500.2500, L100.0500 ####[facility] [address] [place], [address] CO2 [Moles/Vol] 25.0 mmol/L Normal 21.0-32.0 [facility] Comment on above: Performed By: #### L 500.2500, L100.0500 ####[facility] [address] [place], [address] Creatinine [Mass/Vol] 5.98 mg/dL High 0.70-1.30 [facility] Comment on above: Result Comment: The validity of the calculated GFR GFRAA in patients over70 years has not been determined. Clinical correlation isessential. Performed By: #### L 500.2500, L100.0500 ####[facility] [address] [place], [address] ECRCL 9.33 ml/min Normal [facility] Comment on above: Performed By: #### L 500.2500, L100.0500 ####[facility] [address] [place], [address] EST GFR - AA 12 mL/min Low >60 [facility] Comment on above: Result Comment: Afri can Japanese GFR Calc Performed By: #### L 500.2500, L100.0500 ####[facility] [address] [place], [address] GAP 8 Normal 5-15 [facility] Comment on above: Performed By: #### L 500.2500, L100.0500 ####[facility] [address] [place], [address] GFR/1.73 sq M.predicted among non-blacks MDRD (S/P/Bld) [Vol rate/Area] 10 mL/min/{1.73_m2} Low >60 [facility] Comment on above: Result Comment: Non- GFR Calc Performed By: #### L 500.2500, L100.0500 ####[facility] [address] [place], [address] Glucose [Mass/Vol] 141 mg/dL High 74-106 [facility] Comment on above: Result Comment: Fast ing Glucose result greater than or equal to 126 mg/dLsuggests DIABETES MELLITUS per A.D.A. criteria. Performed By: #### L 500.2500, L100.0500 ####[facility] [address] [place], [address] Potassium [Moles/Vol] 4.2 mmol/L Normal 3.5-5.1 [facility] Comment on above: Performed By: #### L 500.2500, L100.0500 ####[facility] [address] [place], [address] Sodium [Moles/Vol] 135 mmol/L Low 136-145 [facility] Comment on above: Performed By: #### L 500.2500, L100.0500 ####[facility] [address] [place], [address] Urea nitrogen [Mass/Vol] 56 mg/dL High 7-18 [facility] Comment on above: Performed By: #### L 500.2500, L100.0500 ####[facility] [address] [place], [address] Bedside Glucoseon 05-10-2024 FINGERSTICK GLU 188 mg/dL High 74-106 [facility] Comment on above: Result Comment: FANG TAYLOR OF PATIENT CARE PER NURSING PROTOCOL Performed By: #### L 501.080 ####[facility] [address] [place], [address] FINGERSTICK GLU 165 mg/dL High 74-106 [facility] Comment on above: Result Comment: FANG GEMENT OF PATIENT CARE PER NURSING PROTOCOL Performed By: #### L 501.080 ####[facility] [address] [place], [address] FINGERSTICK GLU 115 mg/dL High 74-106 [facility] Comment on above: Result Comment: FANG GEMENT OF PATIENT CARE PER NURSING PROTOCOL Performed By: #### L 501.080 ####[facility] [address] [place], [address] CBC-Complete Blood Cnt No Di ffon 05-10-2024 Erythrocyte distribution width (RBC) [Ratio] 15.0 % High 11.6-14.6 [facility] Comment on above: Performed By: #### L 500.2500, L100.0500 ####[facility] [address] [place], [address] Hematocrit (Bld) [Volume fraction] 29.9 % Low 40-54 [facility] Comment on above: Performed By: #### L 500.2500, L100.0500 ####[facility] [address] [place], [address] Hemoglobin (Bld) [Mass/Vol] 9.2 g/dL Low 13.0-16.5 [facility] Comment on above: Performed By: #### L 500.2500, L100.0500 ####[facility] [address] [place], [address] MCH (RBC) [Entitic mass] 29.3 pg Normal 27.0-32.0 [facility] Comment on above: Performed By: #### L 500.2500, L100.0500 ####[facility] [address] [place], [address] MCHC (RBC) [Mass/Vol] 30.8 g/dL Low 32-36 [facility] Comment on above: Performed By: #### L 500.2500, L100.0500 ####[facility] [address] [place], [address] MCV (RBC) [Entitic vol] 95.2 fL High 80-94 [facility] Comment on above: Performed By: #### L 500.2500, L100.0500 ####[facility] [address] [place], [address] Platelet mean volume (Bld) [Entitic vol] 10.5 fL Normal 6.2-12.0 [facility] Comment on above: Performed By: #### L 500.2500, L100.0500 ####[facility] [address] [place], [address] Platelets (Bld) [#/Vol] 205 10*3/uL Normal 150-450 [facility] Comment on above: Performed By: #### L 500.2500, L100.0500 ####[facility] [address] [place], [address] RBC (Bld) [#/Vol] 3.14 10*6/uL Low 4.6-6.2 [facility] Comment on above: Performed By: #### L 500.2500, L100.0500 ####[facility] [address] [place], [address] RDW SD 51.8 fl High 35.1-43.9 [facility] Comment on above: Performed By: #### L 500.2500, L100.0500 ####[facility] [address] [place], [address] WBC (Bld) [#/Vol] 8.2 10*3/uL Normal 4.4-11.0 [facility] Comment on above: Performed By: #### L 500.2500, L100.0500 ####[facility] [address] [place], [address] Culture, Anaerobic Any Sourc reed 05-10-2024 CUAN COLLECTED IN OR RIGH T HALLUX AND 1ST METATARSAL No anaerobic bacteria isolated. Normal [facility] Comment on above: Performed By: #### M 100.2000, M100.3000, M100.4001 ####[facility] [address] [place], [address] Vancomycin, Random Levelon 1 07-11-2023 VANCO, RANDOM 21.6 ug/mL High 0.0-15.0 [facility] Comment on above: Order Comment: Comme nts: PLEASE DRAW PRE-DIALYSIS Result Comment: VANC OMYCIN STANDARD DRUG THERAPY: CRITICAL VALUE IS > 15.0 mg/LVANCOMYCIN HIGH INTENSITY THERAPY: CRITICAL VALUE IS > 20.0 mg/LPLEASE CONTACT PHARMACY SERVICES (#1310) FOR INTERPRETATIONOF RESULTS. THIS RESULT DOES NOT REPRESENT A PEAK OR TROUGHLEVEL FOR THIS DRUG. Performed By: #### L 501.8850 ####[facility] [address] [place], [address] Basic Metabolic Profile (BMP )on 05-09-2024 BUN/CRE 9.9 RATIO Low 10-20 [facility] Comment on above: Performed By: #### L 100.0500, L500.2500 ####[facility] [address] [place], [address] CA,Total 8.8 mg/dL Normal 8.5-10.1 [facility] Comment on above: Performed By: #### L 100.0500, L500.2500 ####[facility] [address] [place], [address] Chloride [Moles/Vol] 102 mmol/L Normal 98-107 [facility] Comment on above: Performed By: #### L 100.0500, L500.2500 ####[facility] [address] [place], [address] CO2 [Moles/Vol] 27.0 mmol/L Normal 21.0-32.0 [facility] Comment on above: Performed By: #### L 100.0500, L500.2500 ####[facility] [address] [place], [address] Creatinine [Mass/Vol] 4.74 mg/dL High 0.70-1.30 [facility] Comment on above: Result Comment: The validity of the calculated GFR GFRAA in patients over70 years has not been determined. Clinical correlation isessential. Performed By: #### L 100.0500, L500.2500 ####[facility] [address] [place], [address] ECRCL 11.77 ml/min Normal [facility] Comment on above: Performed By: #### L 100.0500, L500.2500 ####[facility] [address] [place], [address] EST GFR - AA 15 mL/min Low >60 [facility] Comment on above: Result Comment: Afri can Japanese GFR Calc Performed By: #### L 100.0500, L500.2500 ####[facility] [address] [place], [address] GAP 6 Normal 5-15 [facility] Comment on above: Performed By: #### L 100.0500, L500.2500 ####[facility] [address] [place], [address] GFR/1.73 sq M.predicted among non-blacks MDRD (S/P/Bld) [Vol rate/Area] 13 mL/min/{1.73_m2} Low >60 [facility] Comment on above: Result Comment: Non- GFR Calc Performed By: #### L 100.0500, L500.2500 ####[facility] [address] [place], [address] Glucose [Mass/Vol] 105 mg/dL Normal 74-106 [facility] Comment on above: Result Comment: Fast ing Glucose result from 100 to 125 mg/dLsuggests IMPAIRED HOMEOSTASIS per A.D.A. criteria. Performed By: #### L 100.0500, L500.2500 ####[facility] [address] [place], [address] Potassium [Moles/Vol] 4.2 mmol/L Normal 3.5-5.1 [facility] Comment on above: Performed By: #### L 100.0500, L500.2500 ####[facility] [address] [place], [address] Sodium [Moles/Vol] 135 mmol/L Low 136-145 [facility] Comment on above: Performed By: #### L 100.0500, L500.2500 ####[facility] [address] [place], [address] Urea nitrogen [Mass/Vol] 47 mg/dL High 7-18 [facility] Comment on above: Performed By: #### L 100.0500, L500.2500 ####[facility] [address] [place], [address] Bedside Glucoseon 05-09-2024 FINGERSTICK GLU 176 mg/dL High 74-106 [facility] Comment on above: Result Comment: FANG GEMENT OF PATIENT CARE PER NURSING PROTOCOL Performed By: #### L 501.080 ####[facility] [address] [place], [address] FINGERSTICK GLU 264 mg/dL High 74-106 [facility] Comment on above: Result Comment: FANG GEMENT OF PATIENT CARE PER NURSING PROTOCOL Performed By: #### L 501.080 ####[facility] [address] [place], [address] FINGERSTICK GLU 90 mg/dL Normal 74-106 [facility] Comment on above: Result Comment: FANG GEMENT OF PATIENT CARE PER NURSING PROTOCOL Performed By: #### L 501.080 ####[facility] [address] [place], [address] CBC-Complete Blood Cnt No Di ffon 05-09-2024 Erythrocyte distribution width (RBC) [Ratio] 15.1 % High 11.6-14.6 [facility] Comment on above: Performed By: #### L 100.0500, L500.2500 ####[facility] [address] [place], [address] Hematocrit (Bld) [Volume fraction] 29.4 % Low 40-54 [facility] Comment on above: Performed By: #### L 100.0500, L500.2500 ####[facility] [address] [place], [address] Hemoglobin (Bld) [Mass/Vol] 8.7 g/dL Low 13.0-16.5 [facility] Comment on above: Performed By: #### L 100.0500, L500.2500 ####[facility] [address] [place], [address] MCH (RBC) [Entitic mass] 28.5 pg Normal 27.0-32.0 [facility] Comment on above: Performed By: #### L 100.0500, L500.2500 ####[facility] [address] [place], [address] MCHC (RBC) [Mass/Vol] 29.6 g/dL Low 32-36 [facility] Comment on above: Performed By: #### L 100.0500, L500.2500 ####[facility] [address] [place], [address] MCV (RBC) [Entitic vol] 96.4 fL High 80-94 [facility] Comment on above: Performed By: #### L 100.0500, L500.2500 ####[facility] [address] [place], [address] Platelet mean volume (Bld) [Entitic vol] 11.5 fL Normal 6.2-12.0 [facility] Comment on above: Performed By: #### L 100.0500, L500.2500 ####[facility] [address] [place], [address] Platelets (Bld) [#/Vol] 206 10*3/uL Normal 150-450 [facility] Comment on above: Performed By: #### L 100.0500, L500.2500 ####[facility] [address] [place], [address] RBC (Bld) [#/Vol] 3.05 10*6/uL Low 4.6-6.2 [facility] Comment on above: Performed By: #### L 100.0500, L500.2500 ####[facility] [address] [place], [address] RDW SD 53.7 fl High 35.1-43.9 [facility] Comment on above: Performed By: #### L 100.0500, L500.2500 ####[facility] [address] [place], [address] WBC (Bld) [#/Vol] 10.1 10*3/uL Normal 4.4-11.0 [facility] Comment on above: Performed By: #### L 100.0500, L500.2500 ####[facility] [address] [place], [address] Basic Metabolic Profile (BMP )on 05-08-2024 BUN/CRE 12.0 RATIO Normal 10-20 [facility] Comment on above: Performed By: #### L 500.2500, L100.0500 ####[facility] [address] [place], [address] CA,Total 8.5 mg/dL Normal 8.5-10.1 [facility] Comment on above: Performed By: #### L 500.2500, L100.0500 ####[facility] [address] [place], [address] Chloride [Moles/Vol] 99 mmol/L Normal 98-107 [facility] Comment on above: Performed By: #### L 500.2500, L100.0500 ####[facility] [address] [place], [address] CO2 [Moles/Vol] 27.0 mmol/L Normal 21.0-32.0 [facility] Comment on above: Performed By: #### L 500.2500, L100.0500 ####[facility] [address] [place], [address] Creatinine [Mass/Vol] 6.26 mg/dL High 0.70-1.30 [facility] Comment on above: Result Comment: The validity of the calculated GFR GFRAA in patients over70 years has not been determined. Clinical correlation isessential. Performed By: #### L 500.2500, L100.0500 ####[facility] [address] [place], [address] ECRCL 9.02 ml/min Normal [facility] Comment on above: Performed By: #### L 500.2500, L100.0500 ####[facility] [address] [place], [address] EST GFR - AA 11 mL/min Low >60 [facility] Comment on above: Result Comment: Afri can Japanese GFR Calc Performed By: #### L 500.2500, L100.0500 ####[facility] [address] [place], [address] GAP 7 Normal 5-15 [facility] Comment on above: Performed By: #### L 500.2500, L100.0500 ####[facility] [address] [place], [address] GFR/1.73 sq M.predicted among non-blacks MDRD (S/P/Bld) [Vol rate/Area] 9 mL/min/{1.73_m2} Low >60 [facility] Comment on above: Result Comment: Non- GFR Calc Performed By: #### L 500.2500, L100.0500 ####[facility] [address] [place], [address] Glucose [Mass/Vol] 198 mg/dL High 74-106 [facility] Comment on above: Result Comment: Fast ing Glucose result greater than or equal to 126 mg/dLsuggests DIABETES MELLITUS per A.D.A. criteria. Performed By: #### L 500.2500, L100.0500 ####[facility] [address] [place], [address] Potassium [Moles/Vol] 4.9 mmol/L Normal 3.5-5.1 [facility] Comment on above: Performed By: #### L 500.2500, L100.0500 ####[facility] [address] [place], [address] Sodium [Moles/Vol] 133 mmol/L Low 136-145 [facility] Comment on above: Performed By: #### L 500.2500, L100.0500 ####[facility] [address] [place], [address] Urea nitrogen [Mass/Vol] 75 mg/dL High 7-18 [facility] Comment on above: Performed By: #### L 500.2500, L100.0500 ####[facility] [address] [place], [address] Bedside Glucoseon 05-08-2024 FINGERSTICK GLU 154 mg/dL High 74-106 [facility] Comment on above: Result Comment: FANG VAZQUEZ OF PATIENT CARE PER NURSING PROTOCOL Performed By: #### L 501.080 ####[facility] [address] [place], [address] FINGERSTICK GLU 212 mg/dL High 74-106 [facility] Comment on above: Result Comment: FANG GEMENT OF PATIENT CARE PER NURSING PROTOCOL Performed By: #### L 501.080 ####[facility] [address] [place], [address] FINGERSTICK GLU 194 mg/dL High 74-106 [facility] Comment on above: Result Comment: FANG GEMENT OF PATIENT CARE PER NURSING PROTOCOL Performed By: #### L 501.080 ####[facility] [address] [place], [address] CBC-Complete Blood Cnt No Di ffon 05-08-2024 Erythrocyte distribution width (RBC) [Ratio] 14.9 % High 11.6-14.6 [facility] Comment on above: Performed By: #### L 500.2500, L100.0500 ####[facility] [address] [place], [address] Hematocrit (Bld) [Volume fraction] 29.5 % Low 40-54 [facility] Comment on above: Performed By: #### L 500.2500, L100.0500 ####[facility] [address] [place], [address] Hemoglobin (Bld) [Mass/Vol] 8.8 g/dL Low 13.0-16.5 [facility] Comment on above: Performed By: #### L 500.2500, L100.0500 ####[facility] [address] [place], [address] MCH (RBC) [Entitic mass] 28.9 pg Normal 27.0-32.0 [facility] Comment on above: Performed By: #### L 500.2500, L100.0500 ####[facility] [address] [place], [address] MCHC (RBC) [Mass/Vol] 29.8 g/dL Low 32-36 [facility] Comment on above: Performed By: #### L 500.2500, L100.0500 ####[facility] [address] [place], [id number] MCV (RBC) [Entitic vol] 97.0 fL High 80-94 [facility] Comment on above: Performed By: #### L 500.2500, L100.0500 ####[facility] [address] [place], [address] Platelet mean volume (Bld) [Entitic vol] 11.3 fL Normal 6.2-12.0 [facility] Comment on above: Performed By: #### L 500.2500, L100.0500 ####[facility] [address] [place], [address] Platelets (Bld) [#/Vol] 210 10*3/uL Normal 150-450 [facility] Comment on above: Performed By: #### L 500.2500, L100.0500 ####[facility] [address] [place], [address] RBC (Bld) [#/Vol] 3.04 10*6/uL Low 4.6-6.2 [facility] Comment on above: Performed By: #### L 500.2500, L100.0500 ####[facility] [address] [place], [address] RDW SD 52.8 fl High 35.1-43.9 [facility] Comment on above: Performed By: #### L 500.2500, L100.0500 ####[facility] [address] [place], [address] WBC (Bld) [#/Vol] 9.7 10*3/uL Normal 4.4-11.0 [facility] Comment on above: Performed By: #### L 500.2500, L100.0500 ####[facility] [address] [place], [address] Consultation - Infectious Dx on 05-08-2024 Consultation - Infectious Dx Normal [facility] Gram Stainon 05-08-2024 GS COLLECTED IN OR RIGH T HALLUX AND 1ST METATARSAL Gram Stain Rare White Blood Cells Rare Gram positive cocci No Epithelial cells Normal [facility] Comment on above: Performed By: #### M 100.2000, M100.3000, M100.4001 ####[facility] [address] [place], [address] Basic Metabolic Profile (BMP )on 05-07-2024 BUN/CRE 12.3 RATIO Normal 10-20 [facility] Comment on above: Performed By: #### L 500.2500, L100.0500 ####[facility] [address] [place], [address] CA,Total 8.7 mg/dL Normal 8.5-10.1 [facility] Comment on above: Performed By: #### L 500.2500, L100.0500 ####[facility] [address] [place], [address] Chloride [Moles/Vol] 100 mmol/L Normal 98-107 [facility] Comment on above: Performed By: #### L 500.2500, L100.0500 ####[facility] [address] [place], [address] CO2 [Moles/Vol] 28.0 mmol/L Normal 21.0-32.0 [facility] Comment on above: Performed By: #### L 500.2500, L100.0500 ####[facility] [address] [place], [address] Creatinine [Mass/Vol] 5.45 mg/dL High 0.70-1.30 [facility] Comment on above: Result Comment: The validity of the calculated GFR GFRAA in patients over70 years has not been determined. Clinical correlation isessential. Performed By: #### L 500.2500, L100.0500 ####[facility] [address] [place], [address] ECRCL 10.36 ml/min Normal [facility] Comment on above: Performed By: #### L 500.2500, L100.0500 ####[facility] [address] [place], [address] EST GFR - AA 13 mL/min Low >60 [facility] Comment on above: Result Comment: Afri can Japanese GFR Calc Performed By: #### L 500.2500, L100.0500 ####[facility] [address] [place], [address] GAP 6 Normal 5-15 [facility] Comment on above: Performed By: #### L 500.2500, L100.0500 ####[facility] [address] [place], [address] GFR/1.73 sq M.predicted among non-blacks MDRD (S/P/Bld) [Vol rate/Area] 11 mL/min/{1.73_m2} Low >60 [facility] Comment on above: Result Comment: Non- GFR Calc Performed By: #### L 500.2500, L100.0500 ####[facility] [address] [place], [address] Glucose [Mass/Vol] 131 mg/dL High 74-106 [facility] Comment on above: Result Comment: Fast ing Glucose result greater than or equal to 126 mg/dLsuggests DIABETES MELLITUS per A.D.A. criteria. Performed By: #### L 500.2500, L100.0500 ####[facility] [address] [place], [address] Potassium [Moles/Vol] 4.6 mmol/L Normal 3.5-5.1 [facility] Comment on above: Performed By: #### L 500.2500, L100.0500 ####[facility] [address] [place], [address] Sodium [Moles/Vol] 134 mmol/L Low 136-145 [facility] Comment on above: Performed By: #### L 500.2500, L100.0500 ####[facility] [address] [place], [address] Urea nitrogen [Mass/Vol] 67 mg/dL High 7-18 [facility] Comment on above: Performed By: #### L 500.2500, L100.0500 ####[facility] [address] [place], [address] Bedside Glucoseon 05-07-2024 FINGERSTICK GLU 148 mg/dL High 74-106 [facility] Comment on above: Result Comment: FANG GEMENT OF PATIENT CARE PER NURSING PROTOCOL Performed By: #### L 501.080 ####[facility] [address] [place], [address] FINGERSTICK GLU 102 mg/dL Normal 74-106 [facility] Comment on above: Result Comment: FANG GEMENT OF PATIENT CARE PER NURSING PROTOCOL Performed By: #### L 501.080 ####[facility] [address] [place], [address] FINGERSTICK GLU 120 mg/dL High 74-106 [facility] Comment on above: Result Comment: FANG GEMENT OF PATIENT CARE PER NURSING PROTOCOL Performed By: #### L 501.080 ####[facility] [address] [place], [address] CBC-Complete Blood Cnt No Di ffon 05-07-2024 Erythrocyte distribution width (RBC) [Ratio] 15.0 % High 11.6-14.6 [facility] Comment on above: Performed By: #### L 500.2500, L100.0500 ####[facility] [address] [place], [id number] Hematocrit (Bld) [Volume fraction] 29.8 % Low 40-54 [facility] Comment on above: Performed By: #### L 500.2500, L100.0500 ####[facility] [address] [place], [id number] Hemoglobin (Bld) [Mass/Vol] 9.1 g/dL Low 13.0-16.5 [facility] Comment on above: Performed By: #### L 500.2500, L100.0500 ####[facility] [address] [place], [address] MCH (RBC) [Entitic mass] 29.6 pg Normal 27.0-32.0 [facility] Comment on above: Performed By: #### L 500.2500, L100.0500 ####[facility] [address] [place], [address] MCHC (RBC) [Mass/Vol] 30.5 g/dL Low 32-36 [facility] Comment on above: Performed By: #### L 500.2500, L100.0500 ####[facility] [address] [place], [address] MCV (RBC) [Entitic vol] 97.1 fL High 80-94 [facility] Comment on above: Performed By: #### L 500.2500, L100.0500 ####[facility] [address] [place], [address] Platelet mean volume (Bld) [Entitic vol] 11.0 fL Normal 6.2-12.0 [facility] Comment on above: Performed By: #### L 500.2500, L100.0500 ####[facility] [address] [place], [address] Platelets (Bld) [#/Vol] 223 10*3/uL Normal 150-450 [facility] Comment on above: Performed By: #### L 500.2500, L100.0500 ####[facility] [address] [place], [address] RBC (Bld) [#/Vol] 3.07 10*6/uL Low 4.6-6.2 [facility] Comment on above: Performed By: #### L 500.2500, L100.0500 ####[facility] [address] [place], [address] RDW SD 53.1 fl High 35.1-43.9 [facility] Comment on above: Performed By: #### L 500.2500, L100.0500 ####[facility] [address] [place], [address] WBC (Bld) [#/Vol] 8.1 10*3/uL Normal 4.4-11.0 [facility] Comment on above: Performed By: #### L 500.2500, L100.0500 ####[facility] [address] [place], [address] Decalcification bone/plaqueo n 05-07-2024 Decalcification bone/plaque Normal [facility] Comment on above: Performed By: #### P DEC ####[facility] [address] [place], [address] Foot 2 Viewson 05-07-2024 Foot 2 Views Normal [facility] MR/POSTOP.ANEon 05-07-2024 MR/POSTOP.ANE Normal [facility] MR/DQQNYOOM9hd 05-07-2024 MR/POSTOPAN2 Normal [facility] Operative Reporton Operative Report Normal [facility] Basic Metabolic Profile (BMP )on 05-06-2024 BUN/CRE 11.3 RATIO Normal 10-20 [facility] Comment on above: Performed By: #### L 100.0500, L500.2500 ####[facility] [address] [place], [address] CA,Total 8.9 mg/dL Normal 8.5-10.1 [facility] Comment on above: Performed By: #### L 100.0500, L500.2500 ####[facility] [address] [place], [address] Chloride [Moles/Vol] 99 mmol/L Normal 98-107 [facility] Comment on above: Performed By: #### L 100.0500, L500.2500 ####[facility] [address] [place], [address] CO2 [Moles/Vol] 27.0 mmol/L Normal 21.0-32.0 [facility] Comment on above: Performed By: #### L 100.0500, L500.2500 ####[facility] [address] [place], [address] Creatinine [Mass/Vol] 4.26 mg/dL High 0.70-1.30 [facility] Comment on above: Result Comment: The validity of the calculated GFR GFRAA in patients over70 years has not been determined. Clinical correlation isessential. Performed By: #### L 100.0500, L500.2500 ####[facility] [address] [place], [address] ECRCL 13.25 ml/min Normal [facility] Comment on above: Performed By: #### L 100.0500, L500.2500 ####[facility] [address] [place], [address] EST GFR - AA 17 mL/min Low >60 [facility] Comment on above: Result Comment: Afri can Japanese GFR Calc Performed By: #### L 100.0500, L500.2500 ####[facility] [address] [place], [address] GAP 7 Normal 5-15 [facility] Comment on above: Performed By: #### L 100.0500, L500.2500 ####[facility] [address] [place], [address] GFR/1.73 sq M.predicted among non-blacks MDRD (S/P/Bld) [Vol rate/Area] 14 mL/min/{1.73_m2} Low >60 [facility] Comment on above: Result Comment: Non- GFR Calc Performed By: #### L 100.0500, L500.2500 ####[facility] [address] [place], [address] Glucose [Mass/Vol] 181 mg/dL High 74-106 [facility] Comment on above: Result Comment: Fast ing Glucose result greater than or equal to 126 mg/dLsuggests DIABETES MELLITUS per A.D.A. criteria. Performed By: #### L 100.0500, L500.2500 ####[facility] [address] [place], [address] Potassium [Moles/Vol] 4.3 mmol/L Normal 3.5-5.1 [facility] Comment on above: Performed By: #### L 100.0500, L500.2500 ####[facility] [address] [place], [address] Sodium [Moles/Vol] 133 mmol/L Low 136-145 [facility] Comment on above: Performed By: #### L 100.0500, L500.2500 ####[facility] [address] [place], [address] Urea nitrogen [Mass/Vol] 48 mg/dL High 7-18 [facility] Comment on above: Performed By: #### L 100.0500, L500.2500 ####[facility] [address] [place], [address] Bedside Glucoseon 05-06-2024 FINGERSTICK GLU 215 mg/dL High 74-106 [facility] Comment on above: Result Comment: FANG GEMENT OF PATIENT CARE PER NURSING PROTOCOL Performed By: #### L 501.080 ####[facility] [address] [place], [address] FINGERSTICK GLU 142 mg/dL High 74-106 [facility] Comment on above: Result Comment: FANG GEMENT OF PATIENT CARE PER NURSING PROTOCOL Performed By: #### L 501.080 ####[facility] [address] [place], [address] FINGERSTICK GLU 228 mg/dL High 74-106 [facility] Comment on above: Result Comment: FANG GEMENT OF PATIENT CARE PER NURSING PROTOCOL Performed By: #### L 501.080 ####[facility] [address] [place], [address] CBC-Complete Blood Cnt No Di ffon 05-06-2024 Erythrocyte distribution width (RBC) [Ratio] 15.1 % High 11.6-14.6 [facility] Comment on above: Performed By: #### L 100.0500, L500.2500 ####[facility] [address] [place], [address] Hematocrit (Bld) [Volume fraction] 32.3 % Low 40-54 [facility] Comment on above: Performed By: #### L 100.0500, L500.2500 ####[facility] [address] [place], [address] Hemoglobin (Bld) [Mass/Vol] 9.7 g/dL Low 13.0-16.5 [facility] Comment on above: Performed By: #### L 100.0500, L500.2500 ####[facility] [address] [place], [address] MCH (RBC) [Entitic mass] 29.2 pg Normal 27.0-32.0 [facility] Comment on above: Performed By: #### L 100.0500, L500.2500 ####[facility] [address] [place], [address] MCHC (RBC) [Mass/Vol] 30.0 g/dL Low 32-36 [facility] Comment on above: Performed By: #### L 100.0500, L500.2500 ####[facility] [address] [place], [address] MCV (RBC) [Entitic vol] 97.3 fL High 80-94 [facility] Comment on above: Performed By: #### L 100.0500, L500.2500 ####[facility] [address] [place], [address] Platelet mean volume (Bld) [Entitic vol] 11.1 fL Normal 6.2-12.0 [facility] Comment on above: Performed By: #### L 100.0500, L500.2500 ####[facility] [address] [place], [address] Platelets (Bld) [#/Vol] 238 10*3/uL Normal 150-450 [facility] Comment on above: Performed By: #### L 100.0500, L500.2500 ####[facility] [address] [place], [address] RBC (Bld) [#/Vol] 3.32 10*6/uL Low 4.6-6.2 [facility] Comment on above: Performed By: #### L 100.0500, L500.2500 ####[facility] [address] [place], [address] RDW SD 54.1 fl High 35.1-43.9 [facility] Comment on above: Performed By: #### L 100.0500, L500.2500 ####[facility] [address] [place], [address] WBC (Bld) [#/Vol] 8.5 10*3/uL Normal 4.4-11.0 [facility] Comment on above: Performed By: #### L 100.0500, L500.2500 ####[facility] [address] [place], [address] Basic Metabolic Profile (BMP )on 05-05-2024 BUN/CRE 9.2 RATIO Low 10-20 [facility] Comment on above: Performed By: #### L 100.0100, L500.2500 ####[facility] [address] [place], [address] CA,Total 8.9 mg/dL Normal 8.5-10.1 [facility] Comment on above: Performed By: #### L 100.0100, L500.2500 ####[facility] [address] [place], [address] Chloride [Moles/Vol] 95 mmol/L Low 98-107 [facility] Comment on above: Performed By: #### L 100.0100, L500.2500 ####[facility] [address] [place], [address] CO2 [Moles/Vol] 30.0 mmol/L Normal 21.0-32.0 [facility] Comment on above: Performed By: #### L 100.0100, L500.2500 ####[facility] [address] [place], [address] Creatinine [Mass/Vol] 5.32 mg/dL High 0.70-1.30 [facility] Comment on above: Result Comment: The validity of the calculated GFR GFRAA in patients over70 years has not been determined. Clinical correlation isessential. Performed By: #### L 100.0100, L500.2500 ####[facility] [address] [place], [address] ECRCL 10.63 ml/min Normal [facility] Comment on above: Performed By: #### L 100.0100, L500.2500 ####[facility] [address] [place], [address] EST GFR - AA 13 mL/min Low >60 [facility] Comment on above: Result Comment: Afri can Japanese GFR Calc Performed By: #### L 100.0100, L500.2500 ####[facility] [address] [place], [address] GAP 11 Normal 5-15 [facility] Comment on above: Performed By: #### L 100.0100, L500.2500 ####[facility] [address] [place], [address] GFR/1.73 sq M.predicted among non-blacks MDRD (S/P/Bld) [Vol rate/Area] 11 mL/min/{1.73_m2} Low >60 [facility] Comment on above: Result Comment: Non- GFR Calc Performed By: #### L 100.0100, L500.2500 ####[facility] [address] [place], [address] Glucose [Mass/Vol] 111 mg/dL High 74-106 [facility] Comment on above: Result Comment: Fast ing Glucose result from 100 to 125 mg/dLsuggests IMPAIRED HOMEOSTASIS per A.D.A. criteria. Performed By: #### L 100.0100, L500.2500 ####[facility] [address] [place], [address] Potassium [Moles/Vol] 3.9 mmol/L Normal 3.5-5.1 [facility] Comment on above: Performed By: #### L 100.0100, L500.2500 ####[facility] [address] [place], [address] Sodium [Moles/Vol] 135 mmol/L Low 136-145 [facility] Comment on above: Performed By: #### L 100.0100, L500.2500 ####[facility] [address] [place], [address] Urea nitrogen [Mass/Vol] 49 mg/dL High 7-18 [facility] Comment on above: Performed By: #### L 100.0100, L500.2500 ####[facility] [address] [place], [address] Bedside Glucoseon 05-05-2024 FINGERSTICK GLU 155 mg/dL High 74-106 [facility] Comment on above: Result Comment: FANG GEMENT OF PATIENT CARE PER NURSING PROTOCOL Performed By: #### L 501.080 ####[facility] [address] [place], [address] FINGERSTICK GLU 210 mg/dL High 74-106 [facility] Comment on above: Result Comment: FANG GEMENT OF PATIENT CARE PER NURSING PROTOCOL Performed By: #### L 501.080 ####[facility] [address] [place], [address] FINGERSTICK GLU 202 mg/dL High 74-106 [facility] Comment on above: Result Comment: FANG GEMENT OF PATIENT CARE PER NURSING PROTOCOL Performed By: #### L 501.080 ####[facility] [address] [place], [address] FINGERSTICK GLU 136 mg/dL High 74-106 [facility] Comment on above: Result Comment: FANG GEMENT OF PATIENT CARE PER NURSING PROTOCOL Performed By: #### L 501.080 ####[facility] [address] [place], [address] FINGERSTICK GLU 171 mg/dL High 74-106 [facility] Comment on above: Result Comment: FANG GEMENT OF PATIENT CARE PER NURSING PROTOCOL Performed By: #### L 501.080 ####[facility] [address] [place], [address] CBC W/Diff, Automatedon 04-22 Absolute Lymph 2.35 X10 3/uL Normal 0.83-4.51 [facility] Comment on above: Performed By: #### L 100.0100, L500.2500 ####[facility] [address] [place], [address] Absolute Neut 6.8 X10 3/uL Normal 2.0-7.7 [facility] Comment on above: Performed By: #### L 100.0100, L500.2500 ####[facility] [address] [place], [address] Basophils/100 WBC (Bld) 0.8 % Normal 0-1 [facility] Comment on above: Performed By: #### L 100.0100, L500.2500 ####[facility] [address] [place], [address] Eosinophils/100 WBC (Bld) 3.1 % Normal 0-5 [facility] Comment on above: Performed By: #### L 100.0100, L500.2500 ####[facility] [address] [place], [address] Erythrocyte distribution width (RBC) [Ratio] 15.1 % High 11.6-14.6 [facility] Comment on above: Performed By: #### L 100.0100, L500.2500 ####[facility] [address] [place], [address] Hematocrit (Bld) [Volume fraction] 31.1 % Low 40-54 [facility] Comment on above: Performed By: #### L 100.0100, L500.2500 ####[facility] [address] [place], [address] Hemoglobin (Bld) [Mass/Vol] 9.4 g/dL Low 13.0-16.5 [facility] Comment on above: Performed By: #### L 100.0100, L500.2500 ####[facility] [address] [place], [address] IG% 0.600 Normal 0.0-0.9 [facility] Comment on above: Result Comment: IG% - Immature Granulocytes (promyelocytes, myelocytes andmetamyelocytes) > 1% indicates that a LEFT SHIFT is Present. Performed By: #### L 100.0100, L500.2500 ####[facility] [address] [place], [address] Lymphocytes/100 WBC (Bld) 22.1 % Normal 19-41 [facility] Comment on above: Performed By: #### L 100.0100, L500.2500 ####[facility] [address] [place], [address] MCH (RBC) [Entitic mass] 28.8 pg Normal 27.0-32.0 [facility] Comment on above: Performed By: #### L 100.0100, L500.2500 ####[facility] [address] [place], [address] MCHC (RBC) [Mass/Vol] 30.2 g/dL Low 32-36 [facility] Comment on above: Performed By: #### L 100.0100, L500.2500 ####[facility] [address] [place], [address] MCV (RBC) [Entitic vol] 95.4 fL High 80-94 [facility] Comment on above: Performed By: #### L 100.0100, L500.2500 ####[facility] [address] [place], [address] Monocytes/100 WBC (Bld) 9.2 % Normal 0-10 [facility] Comment on above: Performed By: #### L 100.0100, L500.2500 ####[facility] [address] [place], [address] Neutrophils/100 WBC (Bld) 64.2 % Normal 47-70 [facility] Comment on above: Performed By: #### L 100.0100, L500.2500 ####[facility] [address] [place], [address] Nucleated RBC (Bld) [#/Vol] 0 10*3/uL Normal 0-5 [facility] Comment on above: Performed By: #### L 100.0100, L500.2500 ####[facility] [address] [place], [address] Platelet mean volume (Bld) [Entitic vol] 11.2 fL Normal 6.2-12.0 [facility] Comment on above: Performed By: #### L 100.0100, L500.2500 ####[facility] [address] [place], [address] Platelets (Bld) [#/Vol] 263 10*3/uL Normal 150-450 [facility] Comment on above: Performed By: #### L 100.0100, L500.2500 ####[facility] [address] [place], [address] RBC (Bld) [#/Vol] 3.26 10*6/uL Low 4.6-6.2 [facility] Comment on above: Performed By: #### L 100.0100, L500.2500 ####[facility] [address] [place], [address] RDW SD 52.6 fl High 35.1-43.9 [facility] Comment on above: Performed By: #### L 100.0100, L500.2500 ####[facility] [address] [place], [address] WBC (Bld) [#/Vol] 10.6 10*3/uL Normal 4.4-11.0 [facility] Comment on above: Performed By: #### L 100.0100, L500.2500 ####[facility] [address] [place], [address] Consultation - Nephrologyon 05-05-2024 Consultation - Nephrology Normal [facility] 12 Lead EKGon 05-04-2024 12 Lead EKG Normal [facility] Ankle Brachial Indexon 05-04 Ankle Brachial Index Normal [facility] Basic Metabolic Profile (BMP )on 05-04-2024 BUN/CRE 6.8 RATIO Low 10-20 [facility] Comment on above: Performed By: #### L 100.0100, L501.6710, L101.9900, L500.2500 ####[facility] [address] [place], [address] CA,Total 9.4 mg/dL Normal 8.5-10.1 [facility] Comment on above: Performed By: #### L 100.0100, L501.6710, L101.9900, L500.2500 ####[facility] [address] [place], [address] Chloride [Moles/Vol] 94 mmol/L Low 98-107 [facility] Comment on above: Performed By: #### L 100.0100, L501.6710, L101.9900, L500.2500 ####[facility] [address] [place], [address] CO2 [Moles/Vol] 31.0 mmol/L Normal 21.0-32.0 [facility] Comment on above: Performed By: #### L 100.0100, L501.6710, L101.9900, L500.2500 ####[facility] [address] [place], [address] Creatinine [Mass/Vol] 4.58 mg/dL High 0.70-1.30 [facility] Comment on above: Result Comment: The validity of the calculated GFR GFRAA in patients over70 years has not been determined. Clinical correlation isessential. Performed By: #### L 100.0100, L501.6710, L101.9900, L500.2500 ####[facility] [address] [place], [address] ECRCL 13.00 ml/min Normal [facility] Comment on above: Performed By: #### L 100.0100, L501.6710, L101.9900, L500.2500 ####[facility] [address] [place], [address] EST GFR - AA 16 mL/min Low >60 [facility] Comment on above: Result Comment: Afri can Japanese GFR Calc Performed By: #### L 100.0100, L501.6710, L101.9900, L500.2500 ####[facility] [address] [place], [address] GAP 7 Normal 5-15 [facility] Comment on above: Performed By: #### L 100.0100, L501.6710, L101.9900, L500.2500 ####[facility] [address] [place], [address] GFR/1.73 sq M.predicted among non-blacks MDRD (S/P/Bld) [Vol rate/Area] 13 mL/min/{1.73_m2} Low >60 [facility] Comment on above: Result Comment: Non- GFR Calc Performed By: #### L 100.0100, L501.6710, L101.9900, L500.2500 ####[facility] [address] [place], [address] Glucose [Mass/Vol] 297 mg/dL High 74-106 [facility] Comment on above: Result Comment: Gluc ose result greater than or equal to 200 mg/dLsuggests DIABETES MELLITUS per A.D.A. criteria. Performed By: #### L 100.0100, L501.6710, L101.9900, L500.2500 ####[facility] [address] [place], [address] Potassium [Moles/Vol] 3.7 mmol/L Normal 3.5-5.1 [facility] Comment on above: Performed By: #### L 100.0100, L501.6710, L101.9900, L500.2500 ####[facility] [address] [place], [address] Sodium [Moles/Vol] 133 mmol/L Low 136-145 [facility] Comment on above: Performed By: #### L 100.0100, L501.6710, L101.9900, L500.2500 ####[facility] [address] [place], [address] Urea nitrogen [Mass/Vol] 31 mg/dL High 7-18 [facility] Comment on above: Performed By: #### L 100.0100, L501.6710, L101.9900, L500.2500 ####[facility] [address] [place], [address] Bedside Glucoseon 05-04-2024 FINGERSTICK GLU 342 mg/dL High 74-106 [facility] Comment on above: Result Comment: FANG ROLANDOENT OF PATIENT CARE PER NURSING PROTOCOL Performed By: #### L 501.080 ####[facility] [address] [place], [address] CBC W/Diff, Automatedon 04-22 Absolute Lymph 2.08 X10 3/uL Normal 0.83-4.51 [facility] Comment on above: Performed By: #### L 100.0100, L501.6710, L101.9900, L500.2500 ####[facility] [address] [place], [address] Absolute Neut 5.8 X10 3/uL Normal 2.0-7.7 [facility] Comment on above: Performed By: #### L 100.0100, L501.6710, L101.9900, L500.2500 ####[facility] [address] [place], [address] Basophils/100 WBC (Bld) 1.0 % Normal 0-1 [facility] Comment on above: Performed By: #### L 100.0100, L501.6710, L101.9900, L500.2500 ####[facility] [address] [place], [address] Eosinophils/100 WBC (Bld) 2.4 % Normal 0-5 [facility] Comment on above: Performed By: #### L 100.0100, L501.6710, L101.9900, L500.2500 ####[facility] [address] [place], [address] Erythrocyte distribution width (RBC) [Ratio] 15.4 % High 11.6-14.6 [facility] Comment on above: Performed By: #### L 100.0100, L501.6710, L101.9900, L500.2500 ####[facility] [address] [place], [address] Hematocrit (Bld) [Volume fraction] 36.7 % Low 40-54 [facility] Comment on above: Performed By: #### L 100.0100, L501.6710, L101.9900, L500.2500 ####[facility] [address] [place], [address] Hemoglobin (Bld) [Mass/Vol] 11.3 g/dL Low 13.0-16.5 [facility] Comment on above: Performed By: #### L 100.0100, L501.6710, L101.9900, L500.2500 ####[facility] [address] [place], [address] IG% 0.800 Normal 0.0-0.9 [facility] Comment on above: Result Comment: IG% - Immature Granulocytes (promyelocytes, myelocytes andmetamyelocytes) > 1% indicates that a LEFT SHIFT is Present. Performed By: #### L 100.0100, L501.6710, L101.9900, L500.2500 ####[facility] [address] [place], [address] Lymphocytes/100 WBC (Bld) 22.5 % Normal 19-41 [facility] Comment on above: Performed By: #### L 100.0100, L501.6710, L101.9900, L500.2500 ####[facility] [address] [place], [address] MCH (RBC) [Entitic mass] 29.3 pg Normal 27.0-32.0 [facility] Comment on above: Performed By: #### L 100.0100, L501.6710, L101.9900, L500.2500 ####[facility] [address] [place], [address] MCHC (RBC) [Mass/Vol] 30.8 g/dL Low 32-36 [facility] Comment on above: Performed By: #### L 100.0100, L501.6710, L101.9900, L500.2500 ####[facility] [address] [place], [address] MCV (RBC) [Entitic vol] 95.1 fL High 80-94 [facility] Comment on above: Performed By: #### L 100.0100, L501.6710, L101.9900, L500.2500 ####[facility] [address] [place], [address] Monocytes/100 WBC (Bld) 10.2 % High 0-10 [facility] Comment on above: Performed By: #### L 100.0100, L501.6710, L101.9900, L500.2500 ####[facility] [address] [place], [address] Neutrophils/100 WBC (Bld) 63.1 % Normal 47-70 [facility] Comment on above: Performed By: #### L 100.0100, L501.6710, L101.9900, L500.2500 ####[facility] [address] [place], [address] Nucleated RBC (Bld) [#/Vol] 0 10*3/uL Normal 0-5 [facility] Comment on above: Performed By: #### L 100.0100, L501.6710, L101.9900, L500.2500 ####[facility] [address] [place], [address] Platelet mean volume (Bld) [Entitic vol] 11.4 fL Normal 6.2-12.0 [facility] Comment on above: Performed By: #### L 100.0100, L501.6710, L101.9900, L500.2500 ####[facility] [address] [place], [address] Platelets (Bld) [#/Vol] 288 10*3/uL Normal 150-450 [facility] Comment on above: Performed By: #### L 100.0100, L501.6710, L101.9900, L500.2500 ####[facility] [address] [place], [address] RBC (Bld) [#/Vol] 3.86 10*6/uL Low 4.6-6.2 [facility] Comment on above: Performed By: #### L 100.0100, L501.6710, L101.9900, L500.2500 ####[facility] [address] [place], [address] RDW SD 53.0 fl High 35.1-43.9 [facility] Comment on above: Performed By: #### L 100.0100, L501.6710, L101.9900, L500.2500 ####[facility] [address] [place], [address] WBC (Bld) [#/Vol] 9.2 10*3/uL Normal 4.4-11.0 [facility] Comment on above: Performed By: #### L 100.0100, L501.6710, L101.9900, L500.2500 ####[facility] [address] [place], [address] CRPon 05-04-2024 C-REACTIVE PROT 72.90 mg/L High 0.0-3.0 [facility] Comment on above: Result Comment: C-Re active Protein (CRP) provides useful information for thediagnosis, therapy and monitoring of inflammatory processesand associated diseases. For the evaluation of Relative Riskfor Cardiovascular Disease, a High Sensitivity CRP (HSCRP)should be ordered. Performed By: #### L 100.0100, L501.6710, L101.9900, L500.2500 ####[facility] [address] [place], [address] Consultation - Surgicalon Consultation - Surgical Normal [facility] Emergency Department Summary on 05-04-2024 Emergency Department Summary Normal [facility] Erythrocyte Sed Rateon 05-04 SED RATE 81 mm/hr High 0-20 [facility] Comment on above: Performed By: #### L 100.0100, L501.6710, L101.9900, L500.2500 ####[facility] [address] [place], [address] Foot min 3 Viewson 4 Foot min 3 Views Normal [facility] H AND P Exam - Hospitaliston 05-04-2024 H&P Exam - Hospitalist Normal [facility] US Art Duplex Unilat Lower E xton 05-04-2024 US Art Duplex Unilat Lower Ext Normal [facility] Basic Metabolic Profile (BMP )on 05-02-2024 BUN/CRE 6.9 RATIO Low 10-20 [facility] Comment on above: Order Comment: 107.2 Performed By: #### L 100.0500, L500.2500 ####[facility] [address] [place], [address] CA,Total 8.8 mg/dL Normal 8.5-10.1 [facility] Comment on above: Order Comment: 107.2 Performed By: #### L 100.0500, L500.2500 ####[facility] [address] [place], [address] Chloride [Moles/Vol] 96 mmol/L Low 98-107 [facility] Comment on above: Order Comment: 107.2 Performed By: #### L 100.0500, L500.2500 ####[facility] [address] [place], [address] CO2 [Moles/Vol] 30.0 mmol/L Normal 21.0-32.0 [facility] Comment on above: Order Comment: 107.2 Performed By: #### L 100.0500, L500.2500 ####[facility] [address] [place], [address] Creatinine [Mass/Vol] 4.34 mg/dL High 0.70-1.30 [facility] Comment on above: Order Comment: 107.2 Result Comment: The validity of the calculated GFR GFRAA in patients over70 years has not been determined. Clinical correlation isessential. Performed By: #### L 100.0500, L500.2500 ####[facility] [address] [place], [address] EST GFR - AA 17 mL/min Low >60 [facility] Comment on above: Order Comment: 107.2 Result Comment: Afri can Japanese GFR Calc Performed By: #### L 100.0500, L500.2500 ####[facility] [address] [place], [address] GAP 7 Normal 5-15 [facility] Comment on above: Order Comment: 107.2 Performed By: #### L 100.0500, L500.2500 ####[facility] [address] [place], [address] GFR/1.73 sq M.predicted among non-blacks MDRD (S/P/Bld) [Vol rate/Area] 14 mL/min/{1.73_m2} Low >60 [facility] Comment on above: Order Comment: 107.2 Result Comment: Non- GFR Calc Performed By: #### L 100.0500, L500.2500 ####[facility] [address] [place], [address] Glucose [Mass/Vol] 138 mg/dL High 74-106 [facility] Comment on above: Order Comment: 107.2 Result Comment: Fast ing Glucose result greater than or equal to 126 mg/dLsuggests DIABETES MELLITUS per A.D.A. criteria. Performed By: #### L 100.0500, L500.2500 ####[facility] [address] [place], [address] Potassium [Moles/Vol] 3.6 mmol/L Normal 3.5-5.1 [facility] Comment on above: Order Comment: 107.2 Performed By: #### L 100.0500, L500.2500 ####[facility] [address] [place], [address] Sodium [Moles/Vol] 133 mmol/L Low 136-145 [facility] Comment on above: Order Comment: 107.2 Performed By: #### L 100.0500, L500.2500 ####[facility] [address] [place], [address] Urea nitrogen [Mass/Vol] 30 mg/dL High 7-18 [facility] Comment on above: Order Comment: 107.2 Performed By: #### L 100.0500, L500.2500 ####[facility] [address] [place], [address] CBC-Complete Blood Cnt No Di ffon 05-02-2024 Erythrocyte distribution width (RBC) [Ratio] 15.1 % High 11.6-14.6 [facility] Comment on above: Order Comment: 107.2 Performed By: #### L 100.0500, L500.2500 ####[facility] [address] [place], [address] Hematocrit (Bld) [Volume fraction] 29.9 % Low 40-54 [facility] Comment on above: Order Comment: 107.2 Performed By: #### L 100.0500, L500.2500 ####[facility] [address] [place], [address] Hemoglobin (Bld) [Mass/Vol] 9.6 g/dL Low 13.0-16.5 [facility] Comment on above: Order Comment: 107.2 Performed By: #### L 100.0500, L500.2500 ####[facility] [address] [place], [address] MCH (RBC) [Entitic mass] 30.2 pg Normal 27.0-32.0 [facility] Comment on above: Order Comment: 107.2 Performed By: #### L 100.0500, L500.2500 ####[facility] [address] [place], [address] MCHC (RBC) [Mass/Vol] 32.1 g/dL Normal 32-36 [facility] Comment on above: Order Comment: 107.2 Performed By: #### L 100.0500, L500.2500 ####[facility] [address] [place], [address] MCV (RBC) [Entitic vol] 94.0 fL Normal 80-94 [facility] Comment on above: Order Comment: 107.2 Performed By: #### L 100.0500, L500.2500 ####[facility] [address] [place], [address] Platelet mean volume (Bld) [Entitic vol] 10.9 fL Normal 6.2-12.0 [facility] Comment on above: Order Comment: 107.2 Performed By: #### L 100.0500, L500.2500 ####[facility] [address] [place], [address] Platelets (Bld) [#/Vol] 275 10*3/uL Normal 150-450 [facility] Comment on above: Order Comment: 107.2 Performed By: #### L 100.0500, L500.2500 ####[facility] [address] [place], [address] RBC (Bld) [#/Vol] 3.18 10*6/uL Low 4.6-6.2 [facility] Comment on above: Order Comment: 107.2 Performed By: #### L 100.0500, L500.2500 ####[facility] [address] [place], [address] RDW SD 52.3 fl High 35.1-43.9 [facility] Comment on above: Order Comment: 107.2 Performed By: #### L 100.0500, L500.2500 ####[facility] [address] [place], [address] WBC (Bld) [#/Vol] 8.9 10*3/uL Normal 4.4-11.0 [facility] Comment on above: Order Comment: 107.2 Performed By: #### L 100.0500, L500.2500 ####[facility] [address] [place], [address] Wound Cultureon 05-01-2024 WC Normal [facility] Comment on above: Performed By: #### M 100.4001, M100.2000, M100.3000 ####[facility] [address] [place], [address] Bedside Glucoseon 04-24-2024 FINGERSTICK GLU 202 mg/dL High 74-106 [facility] Comment on above: Result Comment: FANG GEMENT OF PATIENT CARE PER NURSING PROTOCOL Performed By: #### L 501.080 ####[facility] [address] [place], [address] FINGERSTICK GLU 139 mg/dL High [address] [place] [address] Comment on above: Result Comment: FANG GEMENT OF PATIENT CARE PER NURSING PROTOCOL Performed By: #### L 501.080 ####[facility] [address] [place], [address] FINGERSTICK GLU 153 mg/dL High [address] [place] [address] Comment on above: Result Comment: FANG GEMENT OF PATIENT CARE PER NURSING PROTOCOL Performed By: #### L 501.080 ####[facility] [address] [place], [address] FINGERSTICK GLU 250 mg/dL High [address] [place] [address] Comment on above: Result Comment: FANG GEMENT OF PATIENT CARE PER NURSING PROTOCOL Performed By: #### L 501.080 ####[facility] [address] [place], [address] Bedside Glucoseon 04-23-2024 FINGERSTICK GLU 311 mg/dL High [address] [place] [address] Comment on above: Result Comment: FANG GEMENT OF PATIENT CARE PER NURSING PROTOCOL Performed By: #### L 501.080 ####[facility] [address] [place], [address] FINGERSTICK GLU 252 mg/dL High 74-106 [facility] Comment on above: Result Comment: FANG GEMENT OF PATIENT CARE PER NURSING PROTOCOL Performed By: #### L 501.080 ####[facility] [address] [place], [address] FINGERSTICK GLU 173 mg/dL High 74-106 [facility] Comment on above: Result Comment: FANG GEMENT OF PATIENT CARE PER NURSING PROTOCOL Performed By: #### L 501.080 ####[facility] [address] [place], [address] Basic Metabolic Profile (BMP )on 04-22-2024 BUN/CRE 13.8 RATIO Normal 10-20 [facility] Comment on above: Performed By: #### L 100.0100, L500.2500 ####[facility] [address] [place], [address] CA,Total 8.5 mg/dL Normal 8.5-10.1 [facility] Comment on above: Performed By: #### L 100.0100, L500.2500 ####[facility] [address] [place], [address] Chloride [Moles/Vol] 100 mmol/L Normal 98-107 [facility] Comment on above: Performed By: #### L 100.0100, L500.2500 ####[facility] [address] [place], [address] CO2 [Moles/Vol] 25.0 mmol/L Normal 21.0-32.0 [facility] Comment on above: Performed By: #### L 100.0100, L500.2500 ####[facility] [address] [place], [address] Creatinine [Mass/Vol] 4.80 mg/dL High 0.70-1.30 [facility] Comment on above: Result Comment: The validity of the calculated GFR GFRAA in patients over70 years has not been determined. Clinical correlation isessential. Performed By: #### L 100.0100, L500.2500 ####[facility] [address] [place], [address] ECRCL 12.57 ml/min Normal [facility] Comment on above: Performed By: #### L 100.0100, L500.2500 ####[facility] [address] [place], [address] EST GFR - AA 15 mL/min Low >60 [facility] Comment on above: Result Comment: Afri can Japanese GFR Calc Performed By: #### L 100.0100, L500.2500 ####[facility] [address] [place], [address] GAP 10 Normal 5-15 [facility] Comment on above: Performed By: #### L 100.0100, L500.2500 ####[facility] [address] [place], [address] GFR/1.73 sq M.predicted among non-blacks MDRD (S/P/Bld) [Vol rate/Area] 12 mL/min/{1.73_m2} Low >60 [facility] Comment on above: Result Comment: Non- GFR Calc Performed By: #### L 100.0100, L500.2500 ####[facility] [address] [place], [address] Glucose [Mass/Vol] 66 mg/dL Low 74-106 [facility] Comment on above: Performed By: #### L 100.0100, L500.2500 ####[facility] [address] [place], [address] Potassium [Moles/Vol] 4.1 mmol/L Normal 3.5-5.1 [facility] Comment on above: Performed By: #### L 100.0100, L500.2500 ####[facility] [address] [place], [address] Sodium [Moles/Vol] 135 mmol/L Low 136-145 [facility] Comment on above: Performed By: #### L 100.0100, L500.2500 ####[facility] [address] [place], [address] Urea nitrogen [Mass/Vol] 66 mg/dL High 7-18 [facility] Comment on above: Performed By: #### L 100.0100, L500.2500 ####[facility] [address] [place], [address] Bedside Glucoseon 04-22-2024 FINGERSTICK GLU 290 mg/dL High 74-106 [facility] Comment on above: Result Comment: FANG GEMENT OF PATIENT CARE PER NURSING PROTOCOL Performed By: #### L 501.080 ####[facility] [address] [place], [address] FINGERSTICK GLU 220 mg/dL High 74-106 [facility] Comment on above: Result Comment: FANG GEMENT OF PATIENT CARE PER NURSING PROTOCOL Performed By: #### L 501.080 ####[facility] [address] [place], [address] FINGERSTICK GLU 191 mg/dL High 74-106 [facility] Comment on above: Result Comment: FANG GEMENT OF PATIENT CARE PER NURSING PROTOCOL Performed By: #### L 501.080 ####[facility] [address] [place], [address] FINGERSTICK GLU 54 mg/dL Low 74-106 [facility] Comment on above: Result Comment: FANG GEMENT OF PATIENT CARE PER NURSING PROTOCOL Performed By: #### L 501.080 ####[facility] [address] [place], [address] FINGERSTICK GLU 72 mg/dL Low 74-106 [facility] Comment on above: Result Comment: FANG VAZQUEZ OF PATIENT CARE PER NURSING PROTOCOL Performed By: #### L 501.080 ####[facility] [address] [place], [address] CBC W/Diff, Automatedon 12-0 Absolute Lymph 2.51 X10 3/uL Normal 0.83-4.51 [facility] Comment on above: Performed By: #### L 100.0100, L500.2500 ####[facility] [address] [place], [address] Absolute Neut 11.4 X10 3/uL High 2.0-7.7 [facility] Comment on above: Performed By: #### L 100.0100, L500.2500 ####[facility] [address] [place], [address] Basophils/100 WBC (Bld) 0.5 % Normal 0-1 [facility] Comment on above: Performed By: #### L 100.0100, L500.2500 ####[facility] [address] [place], [address] Eosinophils/100 WBC (Bld) 2.2 % Normal 0-5 [facility] Comment on above: Performed By: #### L 100.0100, L500.2500 ####[facility] [address] [place], [address] Erythrocyte distribution width (RBC) [Ratio] 14.9 % High 11.6-14.6 [facility] Comment on above: Performed By: #### L 100.0100, L500.2500 ####[facility] [address] [place], [address] Hematocrit (Bld) [Volume fraction] 30.1 % Low 40-54 [facility] Comment on above: Performed By: #### L 100.0100, L500.2500 ####[facility] [address] [place], [address] Hemoglobin (Bld) [Mass/Vol] 9.4 g/dL Low 13.0-16.5 [facility] Comment on above: Performed By: #### L 100.0100, L500.2500 ####[facility] [address] [place], [address] IG% 1.700 High 0.0-0.9 [facility] Comment on above: Result Comment: IG% - Immature Granulocytes (promyelocytes, myelocytes andmetamyelocytes) > 1% indicates that a LEFT SHIFT is Present. Performed By: #### L 100.0100, L500.2500 ####[facility] [address] [place], [address] Lymphocytes/100 WBC (Bld) 15.8 % Low 19-41 [facility] Comment on above: Performed By: #### L 100.0100, L500.2500 ####[facility] [address] [place], [address] MCH (RBC) [Entitic mass] 30.1 pg Normal 27.0-32.0 [facility] Comment on above: Performed By: #### L 100.0100, L500.2500 ####[facility] [address] [place], [address] MCHC (RBC) [Mass/Vol] 31.2 g/dL Low 32-36 [facility] Comment on above: Performed By: #### L 100.0100, L500.2500 ####[facility] [address] [place], [address] MCV (RBC) [Entitic vol] 96.5 fL High 80-94 [facility] Comment on above: Performed By: #### L 100.0100, L500.2500 ####[facility] [address] [place], [address] Monocytes/100 WBC (Bld) 8.5 % Normal 0-10 [facility] Comment on above: Performed By: #### L 100.0100, L500.2500 ####[facility] [address] [place], [address] Neutrophils/100 WBC (Bld) 71.3 % High 47-70 [facility] Comment on above: Performed By: #### L 100.0100, L500.2500 ####[facility] [address] [place], [address] Nucleated RBC (Bld) [#/Vol] 0 10*3/uL Normal 0-5 [facility] Comment on above: Performed By: #### L 100.0100, L500.2500 ####[facility] [address] [place], [address] Platelet mean volume (Bld) [Entitic vol] 11.2 fL Normal 6.2-12.0 [facility] Comment on above: Performed By: #### L 100.0100, L500.2500 ####[facility] [address] [place], [address] Platelets (Bld) [#/Vol] 303 10*3/uL Normal 150-450 [facility] Comment on above: Performed By: #### L 100.0100, L500.2500 ####[facility] [address] [place], [address] RBC (Bld) [#/Vol] 3.12 10*6/uL Low 4.6-6.2 [facility] Comment on above: Performed By: #### L 100.0100, L500.2500 ####[facility] [address] [place], [address] RDW SD 52.3 fl High 35.1-43.9 [facility] Comment on above: Performed By: #### L 100.0100, L500.2500 ####[facility] [address] [place], [address] WBC (Bld) [#/Vol] 15.9 10*3/uL High 4.4-11.0 [facility] Comment on above: Performed By: #### L 100.0100, L500.2500 ####[facility] [address] [place], [address] Wound Cultureon 04-22-2024 WC Normal [facility] Comment on above: Performed By: #### M 100.2000, M100.3000 ####[facility] [address] [place], [address] Basic Metabolic Profile (BMP )on 04-21-2024 BUN/CRE 14.8 RATIO Normal 10-20 [facility] Comment on above: Performed By: #### L 500.2500, L100.0100 ####[facility] [address] [place], [address] CA,Total 8.6 mg/dL Normal 8.5-10.1 [facility] Comment on above: Performed By: #### L 500.2500, L100.0100 ####[facility] [address] [place], [address] Chloride [Moles/Vol] 98 mmol/L Normal 98-107 [facility] Comment on above: Performed By: #### L 500.2500, L100.0100 ####[facility] [address] [place], [address] CO2 [Moles/Vol] 25.0 mmol/L Normal 21.0-32.0 [facility] Comment on above: Performed By: #### L 500.2500, L100.0100 ####[facility] [address] [place], [address] Creatinine [Mass/Vol] 6.13 mg/dL High 0.70-1.30 [facility] Comment on above: Result Comment: The validity of the calculated GFR GFRAA in patients over70 years has not been determined. Clinical correlation isessential. Performed By: #### L 500.2500, L100.0100 ####[facility] [address] [place], [address] ECRCL 10.02 ml/min Normal [facility] Comment on above: Performed By: #### L 500.2500, L100.0100 ####[facility] [address] [place], [address] EST GFR - AA 11 mL/min Low >60 [facility] Comment on above: Result Comment: Afri can Japanese GFR Calc Performed By: #### L 500.2500, L100.0100 ####[facility] [address] [place], [address] GAP 9 Normal 5-15 [facility] Comment on above: Performed By: #### L 500.2500, L100.0100 ####[facility] [address] [place], [address] GFR/1.73 sq M.predicted among non-blacks MDRD (S/P/Bld) [Vol rate/Area] 9 mL/min/{1.73_m2} Low >60 [facility] Comment on above: Result Comment: Non- GFR Calc Performed By: #### L 500.2500, L100.0100 ####[facility] [address] [place], [address] Glucose [Mass/Vol] 123 mg/dL High 74-106 [facility] Comment on above: Result Comment: Fast ing Glucose result from 100 to 125 mg/dLsuggests IMPAIRED HOMEOSTASIS per A.D.A. criteria. Performed By: #### L 500.2500, L100.0100 ####[facility] [address] [place], [address] Potassium [Moles/Vol] 4.4 mmol/L Normal 3.5-5.1 [facility] Comment on above: Performed By: #### L 500.2500, L100.0100 ####[facility] [address] [place], [address] Sodium [Moles/Vol] 132 mmol/L Low 136-145 [facility] Comment on above: Performed By: #### L 500.2500, L100.0100 ####[facility] [address] [place], [address] Urea nitrogen [Mass/Vol] 91 mg/dL High 7-18 [facility] Comment on above: Performed By: #### L 500.2500, L100.0100 ####[facility] [address] [place], [address] Bedside Glucoseon 04-21-2024 FINGERSTICK GLU 158 mg/dL High 74-106 [facility] Comment on above: Result Comment: FANG GEMENT OF PATIENT CARE PER NURSING PROTOCOL Performed By: #### L 501.080 ####[facility] [address] [place], [address] FINGERSTICK GLU 173 mg/dL High 74-106 [facility] Comment on above: Result Comment: FANG GEMENT OF PATIENT CARE PER NURSING PROTOCOL Performed By: #### L 501.080 ####[facility] [address] [place], [address] FINGERSTICK GLU 312 mg/dL High 74-106 [facility] Comment on above: Result Comment: FANG GEMENT OF PATIENT CARE PER NURSING PROTOCOL Performed By: #### L 501.080 ####[facility] [address] [place], [address] FINGERSTICK GLU 103 mg/dL Normal 74-106 [facility] Comment on above: Result Comment: FANG GEMENT OF PATIENT CARE PER NURSING PROTOCOL Performed By: #### L 501.080 ####[facility] [address] [place], [address] CBC W/Diff, Automatedon 11-3 0-2024 Absolute Lymph 2.21 X10 3/uL Normal 0.83-4.51 [facility] Comment on above: Performed By: #### L 500.2500, L100.0100 ####[facility] [address] [place], [address] Absolute Neut 10.9 X10 3/uL High 2.0-7.7 [facility] Comment on above: Performed By: #### L 500.2500, L100.0100 ####[facility] [address] [place], [address] Basophils/100 WBC (Bld) 0.3 % Normal 0-1 [facility] Comment on above: Performed By: #### L 500.2500, L100.0100 ####[facility] [address] [place], [address] Eosinophils/100 WBC (Bld) 2.1 % Normal 0-5 [facility] Comment on above: Performed By: #### L 500.2500, L100.0100 ####[facility] [address] [place], [address] Erythrocyte distribution width (RBC) [Ratio] 14.9 % High 11.6-14.6 [facility] Comment on above: Performed By: #### L 500.2500, L100.0100 ####[facility] [address] [place], [address] Hematocrit (Bld) [Volume fraction] 31.2 % Low 40-54 [facility] Comment on above: Performed By: #### L 500.2500, L100.0100 ####[facility] [address] [place], [address] Hemoglobin (Bld) [Mass/Vol] 9.4 g/dL Low 13.0-16.5 [facility] Comment on above: Performed By: #### L 500.2500, L100.0100 ####[facility] [address] [place], [address] IG% 1.700 High 0.0-0.9 [facility] Comment on above: Result Comment: IG% - Immature Granulocytes (promyelocytes, myelocytes andmetamyelocytes) > 1% indicates that a LEFT SHIFT is Present. Performed By: #### L 500.2500, L100.0100 ####[facility] [address] [place], [address] Lymphocytes/100 WBC (Bld) 14.7 % Low 19-41 [facility] Comment on above: Performed By: #### L 500.2500, L100.0100 ####[facility] [address] [place], [address] MCH (RBC) [Entitic mass] 29.1 pg Normal 27.0-32.0 [facility] Comment on above: Performed By: #### L 500.2500, L100.0100 ####[facility] [address] [place], [address] MCHC (RBC) [Mass/Vol] 30.1 g/dL Low 32-36 [facility] Comment on above: Performed By: #### L 500.2500, L100.0100 ####[facility] [address] [place], [address] MCV (RBC) [Entitic vol] 96.6 fL High 80-94 [facility] Comment on above: Performed By: #### L 500.2500, L100.0100 ####[facility] [address] [place], [address] Monocytes/100 WBC (Bld) 8.6 % Normal 0-10 [facility] Comment on above: Performed By: #### L 500.2500, L100.0100 ####[facility] [address] [place], [address] Neutrophils/100 WBC (Bld) 72.6 % High 47-70 [facility] Comment on above: Performed By: #### L 500.2500, L100.0100 ####[facility] [address] [place], [address] Nucleated RBC (Bld) [#/Vol] 0 10*3/uL Normal 0-5 [facility] Comment on above: Performed By: #### L 500.2500, L100.0100 ####[facility] [address] [place], [address] Platelet mean volume (Bld) [Entitic vol] 10.8 fL Normal 6.2-12.0 [facility] Comment on above: Performed By: #### L 500.2500, L100.0100 ####[facility] [address] [place], [address] Platelets (Bld) [#/Vol] 285 10*3/uL Normal 150-450 [facility] Comment on above: Performed By: #### L 500.2500, L100.0100 ####[facility] [address] [place], [address] RBC (Bld) [#/Vol] 3.23 10*6/uL Low 4.6-6.2 [facility] Comment on above: Performed By: #### L 500.2500, L100.0100 ####[facility] [address] [place], [address] RDW SD 51.8 fl High 35.1-43.9 [facility] Comment on above: Performed By: #### L 500.2500, L100.0100 ####[facility] [address] [place], [address] WBC (Bld) [#/Vol] 15.0 10*3/uL High 4.4-11.0 [facility] Comment on above: Performed By: #### L 500.2500, L100.0100 ####[facility] [address] [place], [address] Culture, Anaerobic Any Sourc reed 04-21-2024 CUAN Normal [facility] Comment on above: Performed By: #### M 100.4001, M100.2000, M100.3000 ####[facility] [address] [place], [address] Vancomycin, Random Levelon 1 06-21-2023 VANCO, RANDOM 15.6 ug/mL High 0.0-15.0 [facility] Comment on above: Result Comment: VANC OMYCIN STANDARD DRUG THERAPY: CRITICAL VALUE IS > 15.0 mg/LVANCOMYCIN HIGH INTENSITY THERAPY: CRITICAL VALUE IS > 20.0 mg/LPLEASE CONTACT PHARMACY SERVICES (#4945) FOR INTERPRETATIONOF RESULTS. THIS RESULT DOES NOT REPRESENT A PEAK OR TROUGHLEVEL FOR THIS DRUG. Performed By: #### L 501.8850 ####[facility] [address] [place], [address] Basic Metabolic Profile (BMP )on 04-20-2024 BUN/CRE 14.3 RATIO Normal 10-20 [facility] Comment on above: Performed By: #### L 100.0100, L500.2500 ####[facility] [address] [place], [address] CA,Total 8.6 mg/dL Normal 8.5-10.1 [facility] Comment on above: Performed By: #### L 100.0100, L500.2500 ####[facility] [address] [place], [address] Chloride [Moles/Vol] 98 mmol/L Normal 98-107 [facility] Comment on above: Performed By: #### L 100.0100, L500.2500 ####[facility] [address] [place], [address] CO2 [Moles/Vol] 23.0 mmol/L Normal 21.0-32.0 [facility] Comment on above: Performed By: #### L 100.0100, L500.2500 ####[facility] [address] [place], [address] Creatinine [Mass/Vol] 5.23 mg/dL High 0.70-1.30 [facility] Comment on above: Result Comment: The validity of the calculated GFR GFRAA in patients over70 years has not been determined. Clinical correlation isessential. Performed By: #### L 100.0100, L500.2500 ####[facility] [address] [place], [address] ECRCL 11.74 ml/min Normal [facility] Comment on above: Performed By: #### L 100.0100, L500.2500 ####[facility] [address] [place], [address] EST GFR - AA 14 mL/min Low >60 [facility] Comment on above: Result Comment: Afri can Japanese GFR Calc Performed By: #### L 100.0100, L500.2500 ####[facility] [address] [place], [address] GAP 10 Normal 5-15 [facility] Comment on above: Performed By: #### L 100.0100, L500.2500 ####[facility] [address] [place], [address] GFR/1.73 sq M.predicted among non-blacks MDRD (S/P/Bld) [Vol rate/Area] 11 mL/min/{1.73_m2} Low >60 [facility] Comment on above: Result Comment: Non- GFR Calc Performed By: #### L 100.0100, L500.2500 ####[facility] [address] [place], [address] Glucose [Mass/Vol] 264 mg/dL High 74-106 [facility] Comment on above: Result Comment: Gluc ose result greater than or equal to 200 mg/dLsuggests DIABETES MELLITUS per A.D.A. criteria. Performed By: #### L 100.0100, L500.2500 ####[facility] [address] [place], [address] Potassium [Moles/Vol] 4.4 mmol/L Normal 3.5-5.1 [facility] Comment on above: Performed By: #### L 100.0100, L500.2500 ####[facility] [address] [place], [address] Sodium [Moles/Vol] 131 mmol/L Low 136-145 [facility] Comment on above: Performed By: #### L 100.0100, L500.2500 ####[facility] [address] [place], [address] Urea nitrogen [Mass/Vol] 75 mg/dL High 7-18 [facility] Comment on above: Performed By: #### L 100.0100, L500.2500 ####[facility] [address] [place], [address] Bedside Glucoseon 04-20-2024 FINGERSTICK GLU 317 mg/dL High 74[address] [place] [address] Comment on above: Result Comment: FANG GEMENT OF PATIENT CARE PER NURSING PROTOCOL Performed By: #### L 501.080 ####[facility] [address] [place], [address] FINGERSTICK GLU 306 mg/dL High [address] [place] [address] Comment on above: Result Comment: FANG GEMENT OF PATIENT CARE PER NURSING PROTOCOL Performed By: #### L 501.080 ####[facility] [address] [place], [address] FINGERSTICK GLU 254 mg/dL High 74-106 [facility] Comment on above: Result Comment: FANG VAZQUEZ OF PATIENT CARE PER NURSING PROTOCOL Performed By: #### L 501.080 ####[facility] [address] [place], [address] CBC W/Diff, Automatedon 11-2 Absolute Lymph 1.78 X10 3/uL Normal 0.83-4.51 [facility] Comment on above: Performed By: #### L 100.0100, L500.2500 ####[facility] [address] [place], [address] Absolute Neut 10.4 X10 3/uL High 2.0-7.7 [facility] Comment on above: Performed By: #### L 100.0100, L500.2500 ####[facility] [address] [place], [address] Basophils/100 WBC (Bld) 0.4 % Normal 0-1 [facility] Comment on above: Performed By: #### L 100.0100, L500.2500 ####[facility] [address] [place], [address] Eosinophils/100 WBC (Bld) 2.2 % Normal 0-5 [facility] Comment on above: Performed By: #### L 100.0100, L500.2500 ####[facility] [address] [place], [address] Erythrocyte distribution width (RBC) [Ratio] 14.8 % High 11.6-14.6 [facility] Comment on above: Performed By: #### L 100.0100, L500.2500 ####[facility] [address] [place], [address] Hematocrit (Bld) [Volume fraction] 30.3 % Low 40-54 [facility] Comment on above: Performed By: #### L 100.0100, L500.2500 ####[facility] [address] [place], [address] Hemoglobin (Bld) [Mass/Vol] 9.6 g/dL Low 13.0-16.5 [facility] Comment on above: Performed By: #### L 100.0100, L500.2500 ####[facility] [address] [place], [address] IG% 1.400 High 0.0-0.9 [facility] Comment on above: Result Comment: IG% - Immature Granulocytes (promyelocytes, myelocytes andmetamyelocytes) > 1% indicates that a LEFT SHIFT is Present. Performed By: #### L 100.0100, L500.2500 ####[facility] [address] [place], [address] Lymphocytes/100 WBC (Bld) 12.8 % Low 19-41 [facility] Comment on above: Performed By: #### L 100.0100, L500.2500 ####[facility] [address] [place], [address] MCH (RBC) [Entitic mass] 30.3 pg Normal 27.0-32.0 [facility] Comment on above: Performed By: #### L 100.0100, L500.2500 ####[facility] [address] [place], [address] MCHC (RBC) [Mass/Vol] 31.7 g/dL Low 32-36 [facility] Comment on above: Performed By: #### L 100.0100, L500.2500 ####[facility] [address] [place], [address] MCV (RBC) [Entitic vol] 95.6 fL High 80-94 [facility] Comment on above: Performed By: #### L 100.0100, L500.2500 ####[facility] [address] [place], [address] Monocytes/100 WBC (Bld) 8.5 % Normal 0-10 [facility] Comment on above: Performed By: #### L 100.0100, L500.2500 ####[facility] [address] [place], [address] Neutrophils/100 WBC (Bld) 74.7 % High 47-70 [facility] Comment on above: Performed By: #### L 100.0100, L500.2500 ####[facility] [address] [place], [address] Nucleated RBC (Bld) [#/Vol] 0 10*3/uL Normal 0-5 [facility] Comment on above: Performed By: #### L 100.0100, L500.2500 ####[facility] [address] [place], [address] Platelet mean volume (Bld) [Entitic vol] 11.2 fL Normal 6.2-12.0 [facility] Comment on above: Performed By: #### L 100.0100, L500.2500 ####[facility] [address] [place], [address] Platelets (Bld) [#/Vol] 260 10*3/uL Normal 150-450 [facility] Comment on above: Performed By: #### L 100.0100, L500.2500 ####[facility] [address] [place], [address] RBC (Bld) [#/Vol] 3.17 10*6/uL Low 4.6-6.2 [facility] Comment on above: Performed By: #### L 100.0100, L500.2500 ####[facility] [address] [place], [address] RDW SD 51.7 fl High 35.1-43.9 [facility] Comment on above: Performed By: #### L 100.0100, L500.2500 ####[facility] [address] [place], [id number] WBC (Bld) [#/Vol] 13.9 10*3/uL High 4.4-11.0 [facility] Comment on above: Performed By: #### L 100.0100, L500.2500 ####[facility] [address] [place], [address] Basic Metabolic Profile (BMP )on 04-19-2024 BUN/CRE 14.5 RATIO Normal 10-20 [facility] Comment on above: Performed By: #### L 500.2500, L100.0100 ####[facility] [address] [place], [address] CA,Total 8.4 mg/dL Low 8.5-10.1 [facility] Comment on above: Performed By: #### L 500.2500, L100.0100 ####[facility] [address] [place], [address] Chloride [Moles/Vol] 100 mmol/L Normal 98-107 [facility] Comment on above: Performed By: #### L 500.2500, L100.0100 ####[facility] [address] [place], [address] CO2 [Moles/Vol] 25.0 mmol/L Normal 21.0-32.0 [facility] Comment on above: Performed By: #### L 500.2500, L100.0100 ####[facility] [address] [place], [address] Creatinine [Mass/Vol] 4.13 mg/dL High 0.70-1.30 [facility] Comment on above: Result Comment: The validity of the calculated GFR GFRAA in patients over70 years has not been determined. Clinical correlation isessential. Performed By: #### L 500.2500, L100.0100 ####[facility] [address] [place], [address] ECRCL 14.76 ml/min Normal [facility] Comment on above: Performed By: #### L 500.2500, L100.0100 ####[facility] [address] [place], [address] EST GFR - AA 18 mL/min Low >60 [facility] Comment on above: Result Comment: Afri can Japanese GFR Calc Performed By: #### L 500.2500, L100.0100 ####[facility] [address] [place], [address] GAP 9 Normal 5-15 [facility] Comment on above: Performed By: #### L 500.2500, L100.0100 ####[facility] [address] [place], [address] GFR/1.73 sq M.predicted among non-blacks MDRD (S/P/Bld) [Vol rate/Area] 15 mL/min/{1.73_m2} Low >60 [facility] Comment on above: Result Comment: Non- GFR Calc Performed By: #### L 500.2500, L100.0100 ####[facility] [address] [place], [address] Glucose [Mass/Vol] 272 mg/dL High 74-106 [facility] Comment on above: Result Comment: Gluc ose result greater than or equal to 200 mg/dLsuggests DIABETES MELLITUS per A.D.A. criteria. Performed By: #### L 500.2500, L100.0100 ####[facility] [address] [place], [address] Potassium [Moles/Vol] 4.2 mmol/L Normal 3.5-5.1 [facility] Comment on above: Performed By: #### L 500.2500, L100.0100 ####[facility] [address] [place], [address] Sodium [Moles/Vol] 134 mmol/L Low 136-145 [facility] Comment on above: Performed By: #### L 500.2500, L100.0100 ####[facility] [address] [place], [address] Urea nitrogen [Mass/Vol] 60 mg/dL High 7-18 [facility] Comment on above: Performed By: #### L 500.2500, L100.0100 ####[facility] [address] [place], [address] Bedside Glucoseon 04-19-2024 FINGERSTICK GLU 261 mg/dL High 74-106 [facility] Comment on above: Result Comment: FANG GEMENT OF PATIENT CARE PER NURSING PROTOCOL Performed By: #### L 501.080 ####[facility] [address] [place], [address] FINGERSTICK GLU 292 mg/dL High 74-106 [facility] Comment on above: Result Comment: FANG GEMENT OF PATIENT CARE PER NURSING PROTOCOL Performed By: #### L 501.080 ####[facility] [address] [place], [address] FINGERSTICK GLU 298 mg/dL High 74-106 [facility] Comment on above: Result Comment: FANG GEMENT OF PATIENT CARE PER NURSING PROTOCOL Performed By: #### L 501.080 ####[facility] [address] [place], [address] FINGERSTICK GLU 247 mg/dL High 74-106 [facility] Comment on above: Result Comment: FANG GEMENT OF PATIENT CARE PER NURSING PROTOCOL Performed By: #### L 501.080 ####[facility] [address] [place], [address] CBC W/Diff, Automatedon 11-2 Absolute Lymph 1.63 X10 3/uL Normal 0.83-4.51 [facility] Comment on above: Performed By: #### L 500.2500, L100.0100 ####[facility] [address] [place], [address] Absolute Neut 11.4 X10 3/uL High 2.0-7.7 [facility] Comment on above: Performed By: #### L 500.2500, L100.0100 ####[facility] [address] [place], [address] Basophils/100 WBC (Bld) 0.3 % Normal 0-1 [facility] Comment on above: Performed By: #### L 500.2500, L100.0100 ####[facility] [address] [place], [address] Eosinophils/100 WBC (Bld) 1.1 % Normal 0-5 [facility] Comment on above: Performed By: #### L 500.2500, L100.0100 ####[facility] [address] [place], [address] Erythrocyte distribution width (RBC) [Ratio] 15.0 % High 11.6-14.6 [facility] Comment on above: Performed By: #### L 500.2500, L100.0100 ####[facility] [address] [place], [address] Hematocrit (Bld) [Volume fraction] 30.5 % Low 40-54 [facility] Comment on above: Performed By: #### L 500.2500, L100.0100 ####[facility] [address] [place], [address] Hemoglobin (Bld) [Mass/Vol] 9.4 g/dL Low 13.0-16.5 [facility] Comment on above: Performed By: #### L 500.2500, L100.0100 ####[facility] [address] [place], [address] IG% 0.900 Normal 0.0-0.9 [facility] Comment on above: Result Comment: IG% - Immature Granulocytes (promyelocytes, myelocytes andmetamyelocytes) > 1% indicates that a LEFT SHIFT is Present. Performed By: #### L 500.2500, L100.0100 ####[facility] [address] [place], [address] Lymphocytes/100 WBC (Bld) 11.1 % Low 19-41 [facility] Comment on above: Performed By: #### L 500.2500, L100.0100 ####[facility] [address] [place], [address] MCH (RBC) [Entitic mass] 29.8 pg Normal 27.0-32.0 [facility] Comment on above: Performed By: #### L 500.2500, L100.0100 ####[facility] [address] [place], [address] MCHC (RBC) [Mass/Vol] 30.8 g/dL Low 32-36 [facility] Comment on above: Performed By: #### L 500.2500, L100.0100 ####[facility] [address] [place], [address] MCV (RBC) [Entitic vol] 96.8 fL High 80-94 [facility] Comment on above: Performed By: #### L 500.2500, L100.0100 ####[facility] [address] [place], [address] Monocytes/100 WBC (Bld) 8.9 % Normal 0-10 [facility] Comment on above: Performed By: #### L 500.2500, L100.0100 ####[facility] [address] [place], [address] Neutrophils/100 WBC (Bld) 77.7 % High 47-70 [facility] Comment on above: Performed By: #### L 500.2500, L100.0100 ####[facility] [address] [place], [address] Nucleated RBC (Bld) [#/Vol] 0 10*3/uL Normal 0-5 [facility] Comment on above: Performed By: #### L 500.2500, L100.0100 ####[facility] [address] [place], [address] Platelet mean volume (Bld) [Entitic vol] 11.4 fL Normal 6.2-12.0 [facility] Comment on above: Performed By: #### L 500.2500, L100.0100 ####[facility] [address] [place], [address] Platelets (Bld) [#/Vol] 253 10*3/uL Normal 150-450 [facility] Comment on above: Performed By: #### L 500.2500, L100.0100 ####[facility] [address] [place], [address] RBC (Bld) [#/Vol] 3.15 10*6/uL Low 4.6-6.2 [facility] Comment on above: Performed By: #### L 500.2500, L100.0100 ####[facility] [address] [place], [address] RDW SD 52.9 fl High 35.1-43.9 [facility] Comment on above: Performed By: #### L 500.2500, L100.0100 ####[facility] [address] [place], [address] WBC (Bld) [#/Vol] 14.6 10*3/uL High 4.4-11.0 [facility] Comment on above: Performed By: #### L 500.2500, L100.0100 ####[facility] [address] [place], [id number] Culture, Blood (WB)on 2023 CUB Blood cultures x2 fr om two different sites No growth in 5 days. Normal [facility] Comment on above: Performed By: #### M 200.1000 ####[facility] [address] [place], [id number] ACT Activated Clotting Timeo n 04-18-2024 ACTk CLOT TIME 222 sec High 74-137 [facility] Comment on above: Performed By: #### L 9100.0100 ####[facility] [address] [place], [address] BUNon 04-18-2024 Urea nitrogen [Mass/Vol] 39 mg/dL High 7-18 [facility] Comment on above: Performed By: #### L 501.1105, L501.1000 ####[facility] [address] [place], [address] Basic Metabolic Profile (BMP )on 04-18-2024 BUN/CRE 16.6 RATIO Normal 10-20 [facility] Comment on above: Performed By: #### L 500.2500, L100.0100 ####[facility] [address] [place], [address] CA,Total 8.5 mg/dL Normal 8.5-10.1 [facility] Comment on above: Performed By: #### L 500.2500, L100.0100 ####[facility] [address] [place], [id number] Chloride [Moles/Vol] 98 mmol/L Normal 98-107 [facility] Comment on above: Performed By: #### L 500.2500, L100.0100 ####[facility] [address] [place], [id number] CO2 [Moles/Vol] 24.0 mmol/L Normal 21.0-32.0 [facility] Comment on above: Performed By: #### L 500.2500, L100.0100 ####[facility] [address] [place], [address] Creatinine [Mass/Vol] 5.00 mg/dL High 0.70-1.30 [facility] Comment on above: Result Comment: The validity of the calculated GFR GFRAA in patients over70 years has not been determined. Clinical correlation isessential. Performed By: #### L 500.2500, L100.0100 ####[facility] [address] [place], [address] ECRCL 12.43 ml/min Normal [facility] Comment on above: Performed By: #### L 500.2500, L100.0100 ####[facility] [address] [place], [address] EST GFR - AA 14 mL/min Low >60 [facility] Comment on above: Result Comment: Afri can Japanese GFR Calc Performed By: #### L 500.2500, L100.0100 ####[facility] [address] [place], [address] GAP 10 Normal 5-15 [facility] Comment on above: Performed By: #### L 500.2500, L100.0100 ####[facility] [address] [place], [address] GFR/1.73 sq M.predicted among non-blacks MDRD (S/P/Bld) [Vol rate/Area] 12 mL/min/{1.73_m2} Low >60 [facility] Comment on above: Result Comment: Non- GFR Calc Performed By: #### L 500.2500, L100.0100 ####[facility] [address] [place], [address] Glucose [Mass/Vol] 136 mg/dL High 74-106 [facility] Comment on above: Result Comment: Fast ing Glucose result greater than or equal to 126 mg/dLsuggests DIABETES MELLITUS per A.D.A. criteria. Performed By: #### L 500.2500, L100.0100 ####[facility] [address] [place], [address] Potassium [Moles/Vol] 4.1 mmol/L Normal 3.5-5.1 [facility] Comment on above: Performed By: #### L 500.2500, L100.0100 ####[facility] [address] [place], [address] Sodium [Moles/Vol] 132 mmol/L Low 136-145 [facility] Comment on above: Performed By: #### L 500.2500, L100.0100 ####[facility] [address] [place], [address] Urea nitrogen [Mass/Vol] 83 mg/dL High 7-18 [facility] Comment on above: Performed By: #### L 500.2500, L100.0100 ####[facility] [address] [place], [address] Bedside Glucoseon 04-18-2024 FINGERSTICK GLU 289 mg/dL High 74-106 [facility] Comment on above: Result Comment: FANG GEMENT OF PATIENT CARE PER NURSING PROTOCOL Performed By: #### L 501.080 ####[facility] [address] [place], [address] FINGERSTICK GLU 106 mg/dL Normal 74-106 [facility] Comment on above: Result Comment: FANG GEMENT OF PATIENT CARE PER NURSING PROTOCOL Performed By: #### L 501.080 ####[facility] [address] [place], [address] FINGERSTICK GLU 123 mg/dL High 74-106 [facility] Comment on above: Result Comment: FANG GEMENT OF PATIENT CARE PER NURSING PROTOCOL Performed By: #### L 501.080 ####[facility] [address] [place], [address] FINGERSTICK GLU 132 mg/dL High 74-106 [facility] Comment on above: Result Comment: FANG GEMENT OF PATIENT CARE PER NURSING PROTOCOL Performed By: #### L 501.080 ####[facility] [address] [place], [address] FINGERSTICK GLU 313 mg/dL High 74-106 [facility] Comment on above: Result Comment: FANG GEMENT OF PATIENT CARE PER NURSING PROTOCOL Performed By: #### L 501.080 ####[facility] [address] [place], [address] CBC W/Diff, Automatedon 11-2 -2023 Absolute Lymph 1.73 X10 3/uL Normal 0.83-4.51 [facility] Comment on above: Performed By: #### L 500.2500, L100.0100 ####[facility] [address] [place], [address] Absolute Neut 11.4 X10 3/uL High 2.0-7.7 [facility] Comment on above: Performed By: #### L 500.2500, L100.0100 ####[facility] [address] [place], [address] Basophils/100 WBC (Bld) 0.3 % Normal 0-1 [facility] Comment on above: Performed By: #### L 500.2500, L100.0100 ####[facility] [address] [place], [address] Eosinophils/100 WBC (Bld) 1.4 % Normal 0-5 [facility] Comment on above: Performed By: #### L 500.2500, L100.0100 ####[facility] [address] [place], [address] Erythrocyte distribution width (RBC) [Ratio] 14.8 % High 11.6-14.6 [facility] Comment on above: Performed By: #### L 500.2500, L100.0100 ####[facility] [address] [place], [id number] Hematocrit (Bld) [Volume fraction] 30.8 % Low 40-54 [facility] Comment on above: Performed By: #### L 500.2500, L100.0100 ####[facility] [address] [place], [address] Hemoglobin (Bld) [Mass/Vol] 9.5 g/dL Low 13.0-16.5 [facility] Comment on above: Performed By: #### L 500.2500, L100.0100 ####[facility] [address] [place], [address] IG% 0.900 Normal 0.0-0.9 [facility] Comment on above: Result Comment: IG% - Immature Granulocytes (promyelocytes, myelocytes andmetamyelocytes) > 1% indicates that a LEFT SHIFT is Present. Performed By: #### L 500.2500, L100.0100 ####[facility] [address] [place], [address] Lymphocytes/100 WBC (Bld) 11.7 % Low 19-41 [facility] Comment on above: Performed By: #### L 500.2500, L100.0100 ####[facility] [address] [place], [address] MCH (RBC) [Entitic mass] 29.8 pg Normal 27.0-32.0 [facility] Comment on above: Performed By: #### L 500.2500, L100.0100 ####[facility] [address] [place], [address] MCHC (RBC) [Mass/Vol] 30.8 g/dL Low 32-36 [facility] Comment on above: Performed By: #### L 500.2500, L100.0100 ####[facility] [address] [place], [address] MCV (RBC) [Entitic vol] 96.6 fL High 80-94 [facility] Comment on above: Performed By: #### L 500.2500, L100.0100 ####[facility] [address] [place], [address] Monocytes/100 WBC (Bld) 8.4 % Normal 0-10 [facility] Comment on above: Performed By: #### L 500.2500, L100.0100 ####[facility] [address] [place], [address] Neutrophils/100 WBC (Bld) 77.3 % High 47-70 [facility] Comment on above: Performed By: #### L 500.2500, L100.0100 ####[facility] [address] [place], [address] Nucleated RBC (Bld) [#/Vol] 0 10*3/uL Normal 0-5 [facility] Comment on above: Performed By: #### L 500.2500, L100.0100 ####[facility] [address] [place], [address] Platelet mean volume (Bld) [Entitic vol] 11.7 fL Normal 6.2-12.0 [facility] Comment on above: Performed By: #### L 500.2500, L100.0100 ####[facility] [address] [place], [address] Platelets (Bld) [#/Vol] 250 10*3/uL Normal 150-450 [facility] Comment on above: Performed By: #### L 500.2500, L100.0100 ####[facility] [address] [place], [address] RBC (Bld) [#/Vol] 3.19 10*6/uL Low 4.6-6.2 [facility] Comment on above: Performed By: #### L 500.2500, L100.0100 ####[facility] [address] [place], [address] RDW SD 51.9 fl High 35.1-43.9 [facility] Comment on above: Performed By: #### L 500.2500, L100.0100 ####[facility] [address] [place], [address] WBC (Bld) [#/Vol] 14.7 10*3/uL High 4.4-11.0 [facility] Comment on above: Performed By: #### L 500.2500, L100.0100 ####[facility] [address] [place], [address] Operative Reporton 4 Operative Report Normal [facility] Serum Creatinine AND GFRon 06-18-2023 Creatinine [Mass/Vol] 2.45 mg/dL High 0.70-1.30 [facility] Comment on above: Result Comment: The validity of the calculated GFR GFRAA in patients over70 years has not been determined. Clinical correlation isessential. Performed By: #### L 501.1105, L501.1000 ####[facility] [address] [place], [address] ECRCL 24.91 ml/min Normal [facility] Comment on above: Performed By: #### L 501.1105, L501.1000 ####[facility] [address] [place], [address] EST GFR - AA 32 mL/min Low >60 [facility] Comment on above: Result Comment: Afri can Japanese GFR Calc Performed By: #### L 501.1105, L501.1000 ####[facility] [address] [place], [address] GFR/1.73 sq M.predicted among non-blacks MDRD (S/P/Bld) [Vol rate/Area] 27 mL/min/{1.73_m2} Low >60 [facility] Comment on above: Result Comment: Non- GFR Calc Performed By: #### L 501.1105, L501.1000 ####[facility] [address] [place], [address] Vancomycin, Random Levelon 1 06-18-2023 VANCO, RANDOM 16.5 ug/mL High 0.0-15.0 [facility] Comment on above: Order Comment: Comme nts: WITH AM LABS PLEASE, PRIOR TO [place] Result Comment: VANC OMYCIN STANDARD DRUG THERAPY: CRITICAL VALUE IS > 15.0 mg/LVANCOMYCIN HIGH INTENSITY THERAPY: CRITICAL VALUE IS > 20.0 mg/LPLEASE CONTACT PHARMACY SERVICES (#1241) FOR INTERPRETATIONOF RESULTS. THIS RESULT DOES NOT REPRESENT A PEAK OR TROUGHLEVEL FOR THIS DRUG. Performed By: #### L 501.8850 ####[facility] [address] [place], [address] Basic Metabolic Profile (BMP )on 04-17-2024 BUN/CRE 14.9 RATIO Normal 10-20 [facility] Comment on above: Performed By: #### L 100.0100, L500.2500 ####[facility] [address] [place], [address] CA,Total 8.7 mg/dL Normal 8.5-10.1 [facility] Comment on above: Performed By: #### L 100.0100, L500.2500 ####[facility] [address] [place], [address] Chloride [Moles/Vol] 99 mmol/L Normal 98-107 [facility] Comment on above: Performed By: #### L 100.0100, L500.2500 ####[facility] [address] [place], [address] CO2 [Moles/Vol] 27.0 mmol/L Normal 21.0-32.0 [facility] Comment on above: Performed By: #### L 100.0100, L500.2500 ####[facility] [address] [place], [address] Creatinine [Mass/Vol] 3.88 mg/dL High 0.70-1.30 [facility] Comment on above: Result Comment: The validity of the calculated GFR GFRAA in patients over70 years has not been determined. Clinical correlation isessential. Performed By: #### L 100.0100, L500.2500 ####[facility] [address] [place], [address] ECRCL 15.55 ml/min Normal [facility] Comment on above: Performed By: #### L 100.0100, L500.2500 ####[facility] [address] [place], [address] EST GFR - AA 19 mL/min Low >60 [facility] Comment on above: Result Comment: Afri can Japanese GFR Calc Performed By: #### L 100.0100, L500.2500 ####[facility] [address] [place], [address] GAP 8 Normal 5-15 [facility] Comment on above: Performed By: #### L 100.0100, L500.2500 ####[facility] [address] [place], [address] GFR/1.73 sq M.predicted among non-blacks MDRD (S/P/Bld) [Vol rate/Area] 16 mL/min/{1.73_m2} Low >60 [facility] Comment on above: Result Comment: Non- GFR Calc Performed By: #### L 100.0100, L500.2500 ####[facility] [address] [place], [address] Glucose [Mass/Vol] 139 mg/dL High 74-106 [facility] Comment on above: Result Comment: Fast ing Glucose result greater than or equal to 126 mg/dLsuggests DIABETES MELLITUS per A.D.A. criteria. Performed By: #### L 100.0100, L500.2500 ####[facility] [address] [place], [address] Potassium [Moles/Vol] 4.0 mmol/L Normal 3.5-5.1 [facility] Comment on above: Performed By: #### L 100.0100, L500.2500 ####[facility] [address] [place], [address] Sodium [Moles/Vol] 133 mmol/L Low 136-145 [facility] Comment on above: Performed By: #### L 100.0100, L500.2500 ####[facility] [address] [place], [address] Urea nitrogen [Mass/Vol] 58 mg/dL High 7-18 [facility] Comment on above: Performed By: #### L 100.0100, L500.2500 ####[facility] [address] [place], [address] Bedside Glucoseon 04-17-2024 FINGERSTICK GLU 337 mg/dL High 74-106 [facility] Comment on above: Result Comment: FANG GEMENT OF PATIENT CARE PER NURSING PROTOCOL Performed By: #### L 501.080 ####[facility] [address] [place], [address] FINGERSTICK GLU 219 mg/dL High 74-106 [facility] Comment on above: Result Comment: FANG GEMENT OF PATIENT CARE PER NURSING PROTOCOL Performed By: #### L 501.080 ####[facility] [address] [place], [address] FINGERSTICK GLU 139 mg/dL High 74-106 [facility] Comment on above: Result Comment: FANG VAZQUEZ OF PATIENT CARE PER NURSING PROTOCOL Performed By: #### L 501.080 ####[facility] [address] [place], [address] CBC W/Diff, Automatedon 11-2 Absolute Lymph 2.01 X10 3/uL Normal 0.83-4.51 [facility] Comment on above: Performed By: #### L 100.0100, L500.2500 ####[facility] [address] [place], [address] Absolute Neut 11.4 X10 3/uL High 2.0-7.7 [facility] Comment on above: Performed By: #### L 100.0100, L500.2500 ####[facility] [address] [place], [address] Basophils/100 WBC (Bld) 0.2 % Normal 0-1 [facility] Comment on above: Performed By: #### L 100.0100, L500.2500 ####[facility] [address] [place], [address] Eosinophils/100 WBC (Bld) 0.9 % Normal 0-5 [facility] Comment on above: Performed By: #### L 100.0100, L500.2500 ####[facility] [address] [place], [address] Erythrocyte distribution width (RBC) [Ratio] 14.8 % High 11.6-14.6 [facility] Comment on above: Performed By: #### L 100.0100, L500.2500 ####[facility] [address] [place], [address] Hematocrit (Bld) [Volume fraction] 32.2 % Low 40-54 [facility] Comment on above: Performed By: #### L 100.0100, L500.2500 ####[facility] [address] [place], [address] Hemoglobin (Bld) [Mass/Vol] 9.7 g/dL Low 13.0-16.5 [facility] Comment on above: Performed By: #### L 100.0100, L500.2500 ####[facility] [address] [place], [address] IG% 0.500 Normal 0.0-0.9 [facility] Comment on above: Result Comment: IG% - Immature Granulocytes (promyelocytes, myelocytes andmetamyelocytes) > 1% indicates that a LEFT SHIFT is Present. Performed By: #### L 100.0100, L500.2500 ####[facility] [address] [place], [address] Lymphocytes/100 WBC (Bld) 13.4 % Low 19-41 [facility] Comment on above: Performed By: #### L 100.0100, L500.2500 ####[facility] [address] [place], [address] MCH (RBC) [Entitic mass] 29.6 pg Normal 27.0-32.0 [facility] Comment on above: Performed By: #### L 100.0100, L500.2500 ####[facility] [address] [place], [address] MCHC (RBC) [Mass/Vol] 30.1 g/dL Low 32-36 [facility] Comment on above: Performed By: #### L 100.0100, L500.2500 ####[facility] [address] [place], [address] MCV (RBC) [Entitic vol] 98.2 fL High 80-94 [facility] Comment on above: Performed By: #### L 100.0100, L500.2500 ####[facility] [address] [place], [address] Monocytes/100 WBC (Bld) 9.3 % Normal 0-10 [facility] Comment on above: Performed By: #### L 100.0100, L500.2500 ####[facility] [address] [place], [address] Neutrophils/100 WBC (Bld) 75.7 % High 47-70 [facility] Comment on above: Performed By: #### L 100.0100, L500.2500 ####[facility] [address] [place], [address] Nucleated RBC (Bld) [#/Vol] 0 10*3/uL Normal 0-5 [facility] Comment on above: Performed By: #### L 100.0100, L500.2500 ####[facility] [address] [place], [address] Platelet mean volume (Bld) [Entitic vol] 11.7 fL Normal 6.2-12.0 [facility] Comment on above: Performed By: #### L 100.0100, L500.2500 ####[facility] [address] [place], [address] Platelets (Bld) [#/Vol] 232 10*3/uL Normal 150-450 [facility] Comment on above: Performed By: #### L 100.0100, L500.2500 ####[facility] [address] [place], [address] RBC (Bld) [#/Vol] 3.28 10*6/uL Low 4.6-6.2 [facility] Comment on above: Performed By: #### L 100.0100, L500.2500 ####[facility] [address] [place], [address] RDW SD 53.6 fl High 35.1-43.9 [facility] Comment on above: Performed By: #### L 100.0100, L500.2500 ####[facility] [address] [place], [id number] WBC (Bld) [#/Vol] 15.0 10*3/uL High 4.4-11.0 [facility] Comment on above: Performed By: #### L 100.0100, L500.2500 ####[facility] [address] [place], [id number] 12 Lead EKGon 04-16-2024 12 Lead EKG Normal [facility] Basic Metabolic Profile (BMP )on 04-16-2024 BUN/CRE 12.0 RATIO Normal 10-20 [facility] Comment on above: Performed By: #### L 100.0100, L500.2500 ####[facility] [address] [place], [id number] CA,Total 8.6 mg/dL Normal 8.5-10.1 [facility] Comment on above: Performed By: #### L 100.0100, L500.2500 ####[facility] [address] [place], [id number] Chloride [Moles/Vol] 96 mmol/L Low 98-107 [facility] Comment on above: Performed By: #### L 100.0100, L500.2500 ####[facility] [address] [place], [address] CO2 [Moles/Vol] 28.0 mmol/L Normal 21.0-32.0 [facility] Comment on above: Performed By: #### L 100.0100, L500.2500 ####[facility] [address] [place], [id number] Creatinine [Mass/Vol] 4.76 mg/dL High 0.70-1.30 [facility] Comment on above: Result Comment: The validity of the calculated GFR GFRAA in patients over70 years has not been determined. Clinical correlation isessential. Performed By: #### L 100.0100, L500.2500 ####[facility] [address] [place], [address] ECRCL 12.86 ml/min Normal [facility] Comment on above: Performed By: #### L 100.0100, L500.2500 ####[facility] [address] [place], [address] EST GFR - AA 15 mL/min Low >60 [facility] Comment on above: Result Comment: Afri can Japanese GFR Calc Performed By: #### L 100.0100, L500.2500 ####[facility] [address] [place], [address] GAP 9 Normal 5-15 [facility] Comment on above: Performed By: #### L 100.0100, L500.2500 ####[facility] [address] [place], [address] GFR/1.73 sq M.predicted among non-blacks MDRD (S/P/Bld) [Vol rate/Area] 12 mL/min/{1.73_m2} Low >60 [facility] Comment on above: Result Comment: Non- GFR Calc Performed By: #### L 100.0100, L500.2500 ####[facility] [address] [place], [address] Glucose [Mass/Vol] 148 mg/dL High 74-106 [facility] Comment on above: Result Comment: Fast ing Glucose result greater than or equal to 126 mg/dLsuggests DIABETES MELLITUS per A.D.A. criteria. Performed By: #### L 100.0100, L500.2500 ####[facility] [address] [place], [address] Potassium [Moles/Vol] 4.1 mmol/L Normal 3.5-5.1 [facility] Comment on above: Performed By: #### L 100.0100, L500.2500 ####[facility] [address] [place], [address] Sodium [Moles/Vol] 133 mmol/L Low 136-145 [facility] Comment on above: Performed By: #### L 100.0100, L500.2500 ####[facility] [address] [place], [address] Urea nitrogen [Mass/Vol] 57 mg/dL High 7-18 [facility] Comment on above: Performed By: #### L 100.0100, L500.2500 ####[facility] [address] [place], [address] Bedside Glucoseon 04-16-2024 FINGERSTICK GLU 273 mg/dL High 74-106 [facility] Comment on above: Result Comment: FANG GEMENT OF PATIENT CARE PER NURSING PROTOCOL Performed By: #### L 501.080 ####[facility] [address] [place], [address] FINGERSTICK GLU 266 mg/dL High 74-106 [facility] Comment on above: Result Comment: FANG GEMENT OF PATIENT CARE PER NURSING PROTOCOL Performed By: #### L 501.080 ####[facility] [address] [place], [address] FINGERSTICK GLU 142 mg/dL High 74-106 [facility] Comment on above: Result Comment: FANG GEMENT OF PATIENT CARE PER NURSING PROTOCOL Performed By: #### L 501.080 ####[facility] [address] [place], [address] CBC W/Diff, Automatedon - Absolute Lymph 1.44 X10 3/uL Normal 0.83-4.51 [facility] Comment on above: Performed By: #### L 100.0100, L500.2500 ####[facility] [address] [place], [address] Absolute Neut 10.4 X10 3/uL High 2.0-7.7 [facility] Comment on above: Performed By: #### L 100.0100, L500.2500 ####[facility] [address] [place], [address] Basophils/100 WBC (Bld) 0.2 % Normal 0-1 [facility] Comment on above: Performed By: #### L 100.0100, L500.2500 ####[facility] [address] [place], [address] Eosinophils/100 WBC (Bld) 0.5 % Normal 0-5 [facility] Comment on above: Performed By: #### L 100.0100, L500.2500 ####[facility] [address] [place], [address] Erythrocyte distribution width (RBC) [Ratio] 14.9 % High 11.6-14.6 [facility] Comment on above: Performed By: #### L 100.0100, L500.2500 ####[facility] [address] [place], [address] Hematocrit (Bld) [Volume fraction] 32.4 % Low 40-54 [facility] Comment on above: Performed By: #### L 100.0100, L500.2500 ####[facility] [address] [place], [address] Hemoglobin (Bld) [Mass/Vol] 10.0 g/dL Low 13.0-16.5 [facility] Comment on above: Performed By: #### L 100.0100, L500.2500 ####[facility] [address] [place], [address] IG% 0.400 Normal 0.0-0.9 [facility] Comment on above: Result Comment: IG% - Immature Granulocytes (promyelocytes, myelocytes andmetamyelocytes) > 1% indicates that a LEFT SHIFT is Present. Performed By: #### L 100.0100, L500.2500 ####[facility] [address] [place], [address] Lymphocytes/100 WBC (Bld) 10.9 % Low 19-41 [facility] Comment on above: Performed By: #### L 100.0100, L500.2500 ####[facility] [address] [place], [address] MCH (RBC) [Entitic mass] 29.9 pg Normal 27.0-32.0 [facility] Comment on above: Performed By: #### L 100.0100, L500.2500 ####[facility] [address] [place], [address] MCHC (RBC) [Mass/Vol] 30.9 g/dL Low 32-36 [facility] Comment on above: Performed By: #### L 100.0100, L500.2500 ####[facility] [address] [place], [address] MCV (RBC) [Entitic vol] 97.0 fL High 80-94 [facility] Comment on above: Performed By: #### L 100.0100, L500.2500 ####[facility] [address] [place], [address] Monocytes/100 WBC (Bld) 9.6 % Normal 0-10 [facility] Comment on above: Performed By: #### L 100.0100, L500.2500 ####[facility] [address] [place], [address] Neutrophils/100 WBC (Bld) 78.4 % High 47-70 [facility] Comment on above: Performed By: #### L 100.0100, L500.2500 ####[facility] [address] [place], [address] Nucleated RBC (Bld) [#/Vol] 0 10*3/uL Normal 0-5 [facility] Comment on above: Performed By: #### L 100.0100, L500.2500 ####[facility] [address] [place], [address] Platelet mean volume (Bld) [Entitic vol] 11.1 fL Normal 6.2-12.0 [facility] Comment on above: Performed By: #### L 100.0100, L500.2500 ####[facility] [address] [place], [address] Platelets (Bld) [#/Vol] 223 10*3/uL Normal 150-450 [facility] Comment on above: Performed By: #### L 100.0100, L500.2500 ####[facility] [address] [place], [address] RBC (Bld) [#/Vol] 3.34 10*6/uL Low 4.6-6.2 [facility] Comment on above: Performed By: #### L 100.0100, L500.2500 ####[facility] [address] [place], [address] RDW SD 52.6 fl High 35.1-43.9 [facility] Comment on above: Performed By: #### L 100.0100, L500.2500 ####[facility] [address] [place], [address] WBC (Bld) [#/Vol] 13.3 10*3/uL High 4.4-11.0 [facility] Comment on above: Performed By: #### L 100.0100, L500.2500 ####[facility] [address] [place], [address] Consultation - Infectious Dx on 04-16-2024 Consultation - Infectious Dx Normal [facility] Consultation - Nephrologyon 04-16-2024 Consultation - Nephrology Normal [facility] Consultation - Surgicalon Consultation - Surgical Normal [facility] Gram Stainon 04-16-2024 GS Gram Stain 2+ Gram positive cocci 2+ Red Blood Cells 2+ Gram variable yessy No Epithelial cells Normal [facility] Comment on above: Performed By: #### M 100.4001, M100.2000, M100.3000 ####[facility] [address] [place], [address] Hemoglobin A1con 04-16-2024 HbA1c (Bld) [Mass fraction] 9.0 % High 3.8-5.6 [facility] Comment on above: Result Comment: Norm al < 5.7 % Prediabetic 5.7 - 6.4 % Diabetic >or= 6.5 % Please note range changes. Performed By: #### L 501.9985 ####[facility] [address] [facility] [address] Lower Ext/No Jt/w/oon 2023 Lower Ext/No Jt/w/o Normal [facility] Bedside Glucoseon 04-15-2024 FINGERSTICK GLU 262 mg/dL High 74-106 [facility] Comment on above: Result Comment: FANG GEMENT OF PATIENT CARE PER NURSING PROTOCOL Performed By: #### L 501.080 ####[facility] [address] [facility] [address] FINGERSTICK GLU 188 mg/dL High 74-106 [facility] Comment on above: Result Comment: FANG GEMENT OF PATIENT CARE PER NURSING PROTOCOL Performed By: #### L 501.080 ####[facility] [address] [facility] [address] FINGERSTICK GLU 114 mg/dL High 74-106 [facility] Comment on above: Result Comment: FANG GEMENT OF PATIENT CARE PER NURSING PROTOCOL Performed By: #### L 501.080 ####[facility] [address] [place], [address] FINGERSTICK GLU 117 mg/dL High 74-106 [facility] Comment on above: Result Comment: FANG VAZQUEZ OF PATIENT CARE PER NURSING PROTOCOL Performed By: #### L 501.080 ####[facility] [address] [place], [address] CBC W/Diff, Automatedon 11-2 -2023 Absolute Lymph 1.56 X10 3/uL Normal 0.83-4.51 [facility] Comment on above: Performed By: #### L 500.4050, L501.9520, L300.3900, L100.0100 ####[facility] [address] [place], [address] Absolute Neut 9.4 X10 3/uL High 2.0-7.7 [facility] Comment on above: Performed By: #### L 500.4050, L501.9520, L300.3900, L100.0100 ####[facility] [address] [place], [address] Basophils/100 WBC (Bld) 0.2 % Normal 0-1 [facility] Comment on above: Performed By: #### L 500.4050, L501.9520, L300.3900, L100.0100 ####[facility] [address] [place], [address] Eosinophils/100 WBC (Bld) 0.3 % Normal 0-5 [facility] Comment on above: Performed By: #### L 500.4050, L501.9520, L300.3900, L100.0100 ####[facility] [address] [place], [address] Erythrocyte distribution width (RBC) [Ratio] 15.0 % High 11.6-14.6 [facility] Comment on above: Performed By: #### L 500.4050, L501.9520, L300.3900, L100.0100 ####[facility] [address] [place], [address] Hematocrit (Bld) [Volume fraction] 31.9 % Low 40-54 [facility] Comment on above: Performed By: #### L 500.4050, L501.9520, L300.3900, L100.0100 ####[facility] [address] [place], [address] Hemoglobin (Bld) [Mass/Vol] 9.8 g/dL Low 13.0-16.5 [facility] Comment on above: Performed By: #### L 500.4050, L501.9520, L300.3900, L100.0100 ####[facility] [address] [place], [address] IG% 0.500 Normal 0.0-0.9 [facility] Comment on above: Result Comment: IG% - Immature Granulocytes (promyelocytes, myelocytes andmetamyelocytes) > 1% indicates that a LEFT SHIFT is Present. Performed By: #### L 500.4050, L501.9520, L300.3900, L100.0100 ####[facility] [address] [place], [address] Lymphocytes/100 WBC (Bld) 12.7 % Low 19-41 [facility] Comment on above: Performed By: #### L 500.4050, L501.9520, L300.3900, L100.0100 ####[facility] [address] [place], [address] MCH (RBC) [Entitic mass] 29.8 pg Normal 27.0-32.0 [facility] Comment on above: Performed By: #### L 500.4050, L501.9520, L300.3900, L100.0100 ####[facility] [address] [place], [address] MCHC (RBC) [Mass/Vol] 30.7 g/dL Low 32-36 [facility] Comment on above: Performed By: #### L 500.4050, L501.9520, L300.3900, L100.0100 ####[facility] [address] [place], [address] MCV (RBC) [Entitic vol] 97.0 fL High 80-94 [facility] Comment on above: Performed By: #### L 500.4050, L501.9520, L300.3900, L100.0100 ####[facility] [address] [place], [address] Monocytes/100 WBC (Bld) 9.6 % Normal 0-10 [facility] Comment on above: Performed By: #### L 500.4050, L501.9520, L300.3900, L100.0100 ####[facility] [address] [place], [address] Neutrophils/100 WBC (Bld) 76.7 % High 47-70 [facility] Comment on above: Performed By: #### L 500.4050, L501.9520, L300.3900, L100.0100 ####[facility] [address] [place], [address] Nucleated RBC (Bld) [#/Vol] 0 10*3/uL Normal 0-5 [facility] Comment on above: Performed By: #### L 500.4050, L501.9520, L300.3900, L100.0100 ####[facility] [address] [place], [address] Platelet mean volume (Bld) [Entitic vol] 11.1 fL Normal 6.2-12.0 [facility] Comment on above: Performed By: #### L 500.4050, L501.9520, L300.3900, L100.0100 ####[facility] [address] [place], [address] Platelets (Bld) [#/Vol] 238 10*3/uL Normal 150-450 [facility] Comment on above: Performed By: #### L 500.4050, L501.9520, L300.3900, L100.0100 ####[facility] [address] [place], [address] RBC (Bld) [#/Vol] 3.29 10*6/uL Low 4.6-6.2 [facility] Comment on above: Performed By: #### L 500.4050, L501.9520, L300.3900, L100.0100 ####[facility] [address] [place], [address] RDW SD 52.9 fl High 35.1-43.9 [facility] Comment on above: Performed By: #### L 500.4050, L501.9520, L300.3900, L100.0100 ####[facility] [address] [place], [address] WBC (Bld) [#/Vol] 12.2 10*3/uL High 4.4-11.0 [facility] Comment on above: Performed By: #### L 500.4050, L501.9520, L300.3900, L100.0100 ####[facility] [address] [place], [address] CRPon 04-15-2024 C-REACTIVE PROT 232.00 mg/L High 0.0-3.0 [facility] Comment on above: Order Comment: Comme nts: Add onto previous labs if possible Result Comment: C-Re active Protein (CRP) provides useful information for thediagnosis, therapy and monitoring of inflammatory processesand associated diseases. For the evaluation of Relative Riskfor Cardiovascular Disease, a High Sensitivity CRP (HSCRP)should be ordered. Performed By: #### L 501.6710, L101.9900 ####[facility] [address] [place], [address] Comprehensive Metabolic [facility] ilon 04-15-2024 Albumin [Mass/Vol] 2.3 g/dL Low 3.2-5.0 [facility] Comment on above: Performed By: #### L 500.4050, L501.9520, L300.3900, L100.0100 ####[facility] [address] [place], [address] Albumin/Globulin [Mass ratio] 0.5 {ratio} Low 0.9-2.4 [facility] Comment on above: Performed By: #### L 500.4050, L501.9520, L300.3900, L100.0100 ####[facility] [address] [place], [address] ALK P 49 U/L Normal 45-117 [facility] Comment on above: Performed By: #### L 500.4050, L501.9520, L300.3900, L100.0100 ####[facility] [address] [place], [address] ALT [Catalytic activity/Vol] 13 U/L Low 16-61 [facility] Comment on above: Performed By: #### L 500.4050, L501.9520, L300.3900, L100.0100 ####[facility] [address] [place], [address] AST [Catalytic activity/Vol] 9 U/L Low 15-37 [facility] Comment on above: Performed By: #### L 500.4050, L501.9520, L300.3900, L100.0100 ####[facility] [address] [place], [address] Bilirubin [Mass/Vol] 0.50 mg/dL Normal 0.20-1.00 [facility] Comment on above: Result Comment: For patients on eltrombopag therapy, use of Dimension [place] TBIL is not recommended. Performed By: #### L 500.4050, L501.9520, L300.3900, L100.0100 ####[facility] [address] [place], [address] BUN/CRE 10.6 RATIO Normal 10-20 [facility] Comment on above: Performed By: #### L 500.4050, L501.9520, L300.3900, L100.0100 ####[facility] [address] [place], [address] CA,Total 8.4 mg/dL Low 8.5-10.1 [facility] Comment on above: Performed By: #### L 500.4050, L501.9520, L300.3900, L100.0100 ####[facility] [address] [place], [address] Chloride [Moles/Vol] 97 mmol/L Low 98-107 [facility] Comment on above: Performed By: #### L 500.4050, L501.9520, L300.3900, L100.0100 ####[facility] [address] [place], [address] CO2 [Moles/Vol] 28.0 mmol/L Normal 21.0-32.0 [facility] Comment on above: Performed By: #### L 500.4050, L501.9520, L300.3900, L100.0100 ####[facility] [address] [place], [address] Creatinine [Mass/Vol] 3.79 mg/dL High 0.70-1.30 [facility] Comment on above: Result Comment: The validity of the calculated GFR GFRAA in patients over70 years has not been determined. Clinical correlation isessential. Performed By: #### L 500.4050, L501.9520, L300.3900, L100.0100 ####[facility] [address] [place], [address] ECRCL 16.15 ml/min Normal [facility] Comment on above: Performed By: #### L 500.4050, L501.9520, L300.3900, L100.0100 ####[facility] [address] [place], [address] EST GFR - AA 20 mL/min Low >60 [facility] Comment on above: Result Comment: Afri can Japanese GFR Calc Performed By: #### L 500.4050, L501.9520, L300.3900, L100.0100 ####[facility] [address] [place], [address] GAP 10 Normal 5-15 [facility] Comment on above: Performed By: #### L 500.4050, L501.9520, L300.3900, L100.0100 ####[facility] [address] [place], [address] GFR/1.73 sq M.predicted among non-blacks MDRD (S/P/Bld) [Vol rate/Area] 16 mL/min/{1.73_m2} Low >60 [facility] Comment on above: Result Comment: Non- GFR Calc Performed By: #### L 500.4050, L501.9520, L300.3900, L100.0100 ####[facility] [address] [place], [address] Globulin (S) [Mass/Vol] 4.7 g/dL High 2.2-4.2 [facility] Comment on above: Performed By: #### L 500.4050, L501.9520, L300.3900, L100.0100 ####[facility] [address] [place], [address] Glucose [Mass/Vol] 124 mg/dL High 74-106 [facility] Comment on above: Result Comment: Fast ing Glucose result from 100 to 125 mg/dLsuggests IMPAIRED HOMEOSTASIS per A.D.A. criteria. Performed By: #### L 500.4050, L501.9520, L300.3900, L100.0100 ####[facility] [address] [place], [address] Potassium [Moles/Vol] 3.8 mmol/L Normal 3.5-5.1 [facility] Comment on above: Performed By: #### L 500.4050, L501.9520, L300.3900, L100.0100 ####[facility] [address] [place], [address] Sodium [Moles/Vol] 135 mmol/L Low 136-145 [facility] Comment on above: Performed By: #### L 500.4050, L501.9520, L300.3900, L100.0100 ####[facility] [address] [place], [address] T PROT 7.0 g/dL Normal 6.4-8.2 [facility] Comment on above: Performed By: #### L 500.4050, L501.9520, L300.3900, L100.0100 ####[facility] [address] [place], [address] Urea nitrogen [Mass/Vol] 40 mg/dL High 7-18 [facility] Comment on above: Performed By: #### L 500.4050, L501.9520, L300.3900, L100.0100 ####[facility] [address] [place], [address] Erythrocyte Sed Rateon 04-15 SED RATE 68 mm/hr High 0-20 [facility] Comment on above: Order Comment: Comme nts: Add onto previous labs if possible Performed By: #### L 501.6710, L101.9900 ####[facility] [address] [place], [address] Gram Stainon 04-15-2024 GS Positive Normal [facility] Comment on above: Performed By: #### M 100.2000, M100.3000 ####[facility] [address] [place], [address] M8200.1075on 04-15-2024 M8200.1075 Pending MRSA PCR MRSA NEGATIVE STAPH. AUREUS PCR STAPH. AUREUS NEGATIVE Normal [facility] Comment on above: Performed By: #### M 8200.1075 ####[facility] [address] [place], [address] Prothrombin Time w/INRon INR Coag (PPP) [Relative time] 1.4 {INR} Normal [facility] Comment on above: Performed By: #### L 500.4050, L501.9520, L300.3900, L100.0100 ####[facility] [address] [place], [address] PT Coag (PPP) [Time] 16.7 s High 11.7-14.9 [facility] Comment on above: Performed By: #### L 500.4050, L501.9520, L300.3900, L100.0100 ####[facility] [address] [place], [address] Thyroid Stim Hormone (TSH)on 04-15-2024 TSH 0.665 uIU/mL Normal 0.358-3.740 [facility] Comment on above: Performed By: #### L 500.4050, L501.9520, L300.3900, L100.0100 ####[facility] [address] [place], [address] Ankle Brachial Indexon 04-14 Ankle Brachial Index Normal [facility] Bedside Glucoseon 04-14-2024 FINGERSTICK GLU 310 mg/dL High 74-106 [facility] Comment on above: Result Comment: FANG GEMENT OF PATIENT CARE PER NURSING PROTOCOL Performed By: #### L 501.080 ####[facility] [address] [place], [address] FINGERSTICK GLU 190 mg/dL High 74-106 [facility] Comment on above: Result Comment: FANG GEMENT OF PATIENT CARE PER NURSING PROTOCOL Performed By: #### L 501.080 ####[facility] [address] [place], [address] CBC W/Diff, Automatedon 03-24 Absolute Lymph 1.36 X10 3/uL Normal 0.83-4.51 [facility] Comment on above: Performed By: #### L 503.6005, L100.0100, L500.4050 ####[facility] [address] [place], [address] Absolute Neut 11.3 X10 3/uL High 2.0-7.7 [facility] Comment on above: Performed By: #### L 503.6005, L100.0100, L500.4050 ####[facility] [address] [place], [address] Basophils/100 WBC (Bld) 0.3 % Normal 0-1 [facility] Comment on above: Performed By: #### L 503.6005, L100.0100, L500.4050 ####[facility] [address] [place], [address] Eosinophils/100 WBC (Bld) 0.3 % Normal 0-5 [facility] Comment on above: Performed By: #### L 503.6005, L100.0100, L500.4050 ####[facility] [address] [place], [address] Erythrocyte distribution width (RBC) [Ratio] 15.1 % High 11.6-14.6 [facility] Comment on above: Performed By: #### L 503.6005, L100.0100, L500.4050 ####[facility] [address] [place], [address] Hematocrit (Bld) [Volume fraction] 35.3 % Low 40-54 [facility] Comment on above: Performed By: #### L 503.6005, L100.0100, L500.4050 ####[facility] [address] [place], [address] Hemoglobin (Bld) [Mass/Vol] 11.3 g/dL Low 13.0-16.5 [facility] Comment on above: Performed By: #### L 503.6005, L100.0100, L500.4050 ####[facility] [address] [place], [address] IG% 0.600 Normal 0.0-0.9 [facility] Comment on above: Result Comment: IG% - Immature Granulocytes (promyelocytes, myelocytes andmetamyelocytes) > 1% indicates that a LEFT SHIFT is Present. Performed By: #### L 503.6005, L100.0100, L500.4050 ####[facility] [address] [place], [address] Lymphocytes/100 WBC (Bld) 9.7 % Low 19-41 [facility] Comment on above: Performed By: #### L 503.6005, L100.0100, L500.4050 ####[facility] [address] [place], [address] MCH (RBC) [Entitic mass] 30.5 pg Normal 27.0-32.0 [facility] Comment on above: Performed By: #### L 503.6005, L100.0100, L500.4050 ####[facility] [address] [place], [address] MCHC (RBC) [Mass/Vol] 32.0 g/dL Normal 32-36 [facility] Comment on above: Performed By: #### L 503.6005, L100.0100, L500.4050 ####[facility] [address] [place], [address] MCV (RBC) [Entitic vol] 95.1 fL High 80-94 [facility] Comment on above: Performed By: #### L 503.6005, L100.0100, L500.4050 ####[facility] [address] [place], [address] Monocytes/100 WBC (Bld) 8.6 % Normal 0-10 [facility] Comment on above: Performed By: #### L 503.6005, L100.0100, L500.4050 ####[facility] [address] [place], [address] Neutrophils/100 WBC (Bld) 80.5 % High 47-70 [facility] Comment on above: Performed By: #### L 503.6005, L100.0100, L500.4050 ####[facility] [address] [place], [address] Nucleated RBC (Bld) [#/Vol] 0 10*3/uL Normal 0-5 [facility] Comment on above: Performed By: #### L 503.6005, L100.0100, L500.4050 ####[facility] [address] [place], [address] Platelet mean volume (Bld) [Entitic vol] 10.8 fL Normal 6.2-12.0 [facility] Comment on above: Performed By: #### L 503.6005, L100.0100, L500.4050 ####[facility] [id number] [place], [address] Platelets (Bld) [#/Vol] 255 10*3/uL Normal 150-450 [facility] Comment on above: Performed By: #### L 503.6005, L100.0100, L500.4050 ####[facility] [address] [place], [address] RBC (Bld) [#/Vol] 3.71 10*6/uL Low 4.6-6.2 [facility] Comment on above: Performed By: #### L 503.6005, L100.0100, L500.4050 ####[facility] [id number] [place], [address] RDW SD 52.1 fl High 35.1-43.9 [facility] Comment on above: Performed By: #### L 503.6005, L100.0100, L500.4050 ####[facility] [address] [place], [address] WBC (Bld) [#/Vol] 14.0 10*3/uL High 4.4-11.0 [facility] Comment on above: Performed By: #### L 503.6005, L100.0100, L500.4050 ####[facility] [address] [place], [address] CNOVon 04-14-2024 CNOV Office Visit (UCWSTR ) PERLA THOMPSON ([id number]) 1935 Date Time Provider Department 04/14/24 10:15 AM YOLANDA JAIN UCWSTR During your visit today, we recorded the [...] distress and family will self transport to [place] emergency department Allergies As of Date: 04/14/2024 [...] once daily. Every other day - Insulin Mackey, Disposable, (BD ULTRA-FINE SHAHEEN PEN NEEDLE) 32 gauge x Use one needle for each dose. 1x/day. [...] by mouth once daily. - Blood-Glucose Meter [facility] Dispense 1 kit. 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 For the evaluation of Relative Riskfor Cardiovascular Disease, a High Sensitivity CRP (HSCRP)should be ordered. Performed By: #### L 101.9900, L501.6710 ####[facility] [address] [place], [address] Comprehensive Metabolic Prof ilon 04-14-2024 Albumin [Mass/Vol] 2.7 g/dL Low 3.2-5.0 [facility] Comment on above: Performed By: #### L 503.6005, L100.0100, L500.4050 ####[facility] [address] [place], [address] Albumin/Globulin [Mass ratio] 0.5 {ratio} Low 0.9-2.4 [facility] Comment on above: Performed By: #### L 503.6005, L100.0100, L500.4050 ####[facility] [address] [place], [address] ALK P 62 U/L Normal 45-117 [facility] Comment on above: Performed By: #### L 503.6005, L100.0100, L500.4050 ####[facility] [address] [place], [address] ALT [Catalytic activity/Vol] 11 U/L Low 16-61 [facility] Comment on above: Performed By: #### L 503.6005, L100.0100, L500.4050 ####[facility] [address] [place], [address] AST [Catalytic activity/Vol] 15 U/L Normal 15-37 [facility] Comment on above: Performed By: #### L 503.6005, L100.0100, L500.4050 ####[facility] [address] [place], [address] Bilirubin [Mass/Vol] 0.50 mg/dL Normal 0.20-1.00 [facility] Comment on above: Result Comment: For patients on eltrombopag therapy, use of Dimension [place] TBIL is not recommended. Performed By: #### L 503.6005, L100.0100, L500.4050 ####[facility] [address] [place], [address] BUN/CRE 9.5 RATIO Low 10-20 [facility] Comment on above: Performed By: #### L 503.6005, L100.0100, L500.4050 ####[facility] [address] [place], [address] CA,Total 8.6 mg/dL Normal 8.5-10.1 [facility] Comment on above: Performed By: #### L 503.6005, L100.0100, L500.4050 ####[facility] [address] [place], [address] Chloride [Moles/Vol] 96 mmol/L Low 98-107 [facility] Comment on above: Performed By: #### L 503.6005, L100.0100, L500.4050 ####[facility] [address] [place], [address] CO2 [Moles/Vol] 32.0 mmol/L Normal 21.0-32.0 [facility] Comment on above: Performed By: #### L 503.6005, L100.0100, L500.4050 ####[facility] [address] [place], [address] Creatinine [Mass/Vol] 2.84 mg/dL High 0.70-1.30 [facility] Comment on above: Result Comment: The validity of the calculated GFR GFRAA in patients over70 years has not been determined. Clinical correlation isessential. Performed By: #### L 503.6005, L100.0100, L500.4050 ####[facility] [address] [place], [address] ECRCL 21.22 ml/min Normal [facility] Comment on above: Performed By: #### L 503.6005, L100.0100, L500.4050 ####[facility] [address] [place], [address] EST GFR - AA 27 mL/min Low >60 [facility] Comment on above: Result Comment: Afri can Japanese GFR Calc Performed By: #### L 503.6005, L100.0100, L500.4050 ####[facility] [address] [place], [address] GAP 8 Normal 5-15 [facility] Comment on above: Performed By: #### L 503.6005, L100.0100, L500.4050 ####[facility] [address] [place], [address] GFR/1.73 sq M.predicted among non-blacks MDRD (S/P/Bld) [Vol rate/Area] 23 mL/min/{1.73_m2} Low >60 [facility] Comment on above: Result Comment: Non- GFR Calc Performed By: #### L 503.6005, L100.0100, L500.4050 ####[facility] [address] [place], [address] Globulin (S) [Mass/Vol] 5.3 g/dL High 2.2-4.2 [facility] Comment on above: Performed By: #### L 503.6005, L100.0100, L500.4050 ####[facility] [address] [place], [address] Glucose [Mass/Vol] 130 mg/dL High 74-106 [facility] Comment on above: Result Comment: Fast ing Glucose result greater than or equal to 126 mg/dLsuggests DIABETES MELLITUS per A.D.A. criteria. Performed By: #### L 503.6005, L100.0100, L500.4050 ####[facility] [address] [place], [address] Potassium [Moles/Vol] 3.7 mmol/L Normal 3.5-5.1 [facility] Comment on above: Performed By: #### L 503.6005, L100.0100, L500.4050 ####[facility] [address] [place], [address] Sodium [Moles/Vol] 136 mmol/L Normal 136-145 [facility] Comment on above: Performed By: #### L 503.6005, L100.0100, L500.4050 ####[facility] [address] [place], [address] T PROT 8.0 g/dL Normal 6.4-8.2 [facility] Comment on above: Performed By: #### L 503.6005, L100.0100, L500.4050 ####[facility] [address] [place], [address] Urea nitrogen [Mass/Vol] 27 mg/dL High 7-18 [facility] Comment on above: Performed By: #### L 503.6005, L100.0100, L500.4050 ####[facility] [address] [place], [address] Emergency Department Summary on 04-14-2024 Emergency Department Summary Normal [facility] Erythrocyte Sed Rateon 04-14 SED RATE 87 mm/hr High 0-20 [facility] Comment on above: Performed By: #### L 101.9900, L501.6710 ####[facility] [address] [place], [address] Foot min 3 Viewson 4 Foot min 3 Views Normal [facility] H AND P Exam - Hospitaliston 04-14-2024 H&P Exam - Hospitalist Normal [facility] Lactic Acidon 04-14-2024 Lactate [Moles/Vol] 1.6 mmol/L Normal 0.4-1.9 [facility] Comment on above: Order Comment: Y Performed By: #### L 503.6005, L100.0100, L500.4052 ####[facility] [address] [place], [place], [address] CNPNon 04-13-2024 LUZN Telephone (HENNY) PERLA THOMPSON ([id number]) 1935 M Date Time Provider Department 04/13/24 [...] 33 units daily. Please advise Lauren Arzola APRN.PRINTING GRAY CLOTH TENDER 04/13/2024 2:37 PM Signed Increase Lantus to 37 units daily. Would he be willing to talk with our clinical pharmacist to help with managing his diabetic medications as it doesn't seem we are getting much better. KIKE Gamez Beth, LPN 04/13/2024 2:49 PM Signed Phoned daughter Norah and went over notes from Lauren Arzola MANAGER MASSAGE DEPARTMENT with understanding. Norah said father would not like to see pharmacist, she will try the increase in Lantus. Lauren Arzola APRN.CNP 04/16/2024 7:08 AM Addendum Update me Tuesday with readings. KIKE Gamez Beth, LPN 04/16/2024 9:09 AM Signed Phoned Norah and went over notes below. She said her father is in [facility] with a fott infection right now. She will update you when she can. Lauren Arzola APRN.CNP 04/16/2024 9:19 AM Signed Okay. Possible why his sugars have bee elevated as well. KIKE Gamez Beth, LPN 04/17/2024 12:52 PM Signed noted. Allergies [...] once daily. Every other day - Insulin Mackey, Disposable, (BD ULTRA-FINE SHAHEEN PEN NEEDLE) 32 gauge x Use one needle for each dose. 1x/day. [...] by mouth once daily. - Blood-Glucose Meter [facility] Dispense 1 kit. Dx: E11.65 - Aspirin [...] disease) on (more content not included)... Normal [facility] ([id number]) 1935 Date Time Provider Department 04/05/24 PODLOGARLAUREN During your visit today, we recorded the following information about you: Mayela Hopson LPN 04/05/2024 11:23 AM Signed Patient daughter Norah calling to give MANAGER MASSAGE DEPARTMENT her father blood sugar average since increased Lantus insulin to 29 units. She is not sure what date he increased his dose of Lantus, and if he is taking it daily. She said he is getting more forgetful. He usually takes his Lantus dose late afternoon. His [employer] Gelacio reader gives an average blood sugar at 327. She said it does not give her dates with separate readings. PodlogarLauren APRN.PRINTING GRAY CLOTH TENDER 04/06/2024 6:49 AM Signed Increase Lantus to 33 units. I would recommend office appointment to discuss increasing forgetfulness. Would he be interested in talking to clinical pharmacist to see if she can help get better control of blood sugars? Update me in 5 days with blood sugar reading or average, sooner if getting lows. Lauren Podlogar, HVAC ENGINEER.Deborah Paul LPN 04/06/2024 8:19 AM Signed Patients [...] edema, without long-term current use of insulin ([facility]) [E11.3313] Order(s):insulin glargine (LANTUS SOLOSTAR U-100 INSULIN) [...] once daily. Every other day - Insulin Mackey, Disposable, (BD ULTRA-FINE SHAHEEN PEN NEEDLE) 32 gauge x Use one needle for each dose. 1x/day. [...] by mouth once daily. - Blood-Glucose Meter [facility] Dispense 1 kit. 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 Normal [facility] CNOVon 03-28-2024 CNOV Office Visit (ETTAWS ) PERLA THOMPSON ([id number]) 1935 M Date Time Provider Department 03/28/24 1:00 PM LAUREN ARZOLA During your visit today, we recorded the following information about you: Pulse Respiration Blood pressure Weight 47/minute 18/minute 118/48 99.2 kg Lauren Arzola APRN.CNP 03/28/2024 1:22 PM Signed 03/28/2024 Patient presents with: Fluid retention : and increased blood sugars, with sugars over 300s Has dialysis 3x week; sees nephrology monthly and saw him yesterday at dialysis, ordered him a diuretic but no call from pharmacy yet SUBJECTIVE: This is a 88 year old, accompanied by daughter, that is here today for Above Complaints. Reports increased blood sugars. Checks blood sugars daily 200-300. Has CGM unsure of what the average is. Denies visual changes, polyuria or polydipsia. Daughter concerned about horse trekking guide giving him a diuretic She reports he was at dialysis yesterday and they told him they were calling medication due to excess fluids. She is not sure what medication it is PAST MEDICAL HISTORY Diagnosis Date Chronic diastolic heart failure (HCC) Dr. 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 insulin glargine (LANTUS SOLOSTAR U-100 INSULIN) 100 unit/mL (3 mL) Inject 25 Units subcutaneously once daily. flash glucose scanning reader (ManageIQSTYLE GELACIO 14 DAY READER) 1 Units four times daily. blood sugar diagnostic (BLOOD GLUCOSE TEST) test strip Test blood sugar(s) 2 times daily. Dx: Type 2 DM -E11. Insulin: No blood sugar diagnostic (ACCU-CHEK LISA PLUS TEST STRP) test strip Test blood sugar(s) 2x daily. Dx E11.65. Insulin: No. mecobalamin (B12 ACTIVE ORAL) Take 1 tablet by mouth once daily. Every other day Insulin Mackey, Disposable, (BD ULTRA-FINE SHAHEEN PEN NEEDLE) 32 gauge x 5/32 Use one needle for each dose. 1x/day. [...] Units by mouth once daily. Blood-Glucose Meter [facility] Dispense 1 kit. Dx: E11.65 Aspirin 81 [...] Completed Pn (more content not included)... Normal [facility] Comprehensive metabolic 2000 panelon 03-28-2024 Albumin [Mass/Vol] 3.2 g/dL Low 3.9-4.9 [facility] Comment on above: Order Comment: Speci men Type: BLOOD SPECIMENOrdering Facility: [facility] Address: [address] [place] [address] Performed By: #### 2 4323-8 ####[facility] LABCLIA [id number] [place] [address] [place] ALP [Catalytic activity/Vol] 65 U/L Normal 38-113 [facility] Comment on above: Order Comment: Speci men Type: BLOOD SPECIMENOrdering Facility: [facility] Address: [address] [place] [address] Performed By: #### 2 4323-8 ####[facility] LABCLIA [id number] [place] [address] [place] ALT [Catalytic activity/Vol] 10 U/L Normal 10-54 [facility] Comment on above: Order Comment: Speci men Type: BLOOD SPECIMENOrdering Facility: [facility] Address: [address] [place] [address] Performed By: #### 2 4323-8 ####[facility] LABCLIA [id number] [place] [address] [place] Anion gap [Moles/Vol] 12 mmol/L Normal 8-15 [facility] Comment on above: Order Comment: Speci men Type: BLOOD SPECIMENOrdering Facility: [facility] Address: [address] [place] [address] Performed By: #### 2 4323-8 ####[facility] LABCLIA [id number] [place] [address] [place] AST [Catalytic activity/Vol] 12 U/L Low 14-40 [facility] Comment on above: Order Comment: Speci men Type: BLOOD SPECIMENOrdering Facility: [facility] Address: [address] [place] [address] Performed By: #### 2 4323-8 ####[facility] LABCLIA [id number] [place] [address] [place] Bilirubin [Mass/Vol] 0.2 mg/dL Normal 0.2-1.3 [facility] Comment on above: Order Comment: Speci men Type: BLOOD SPECIMENOrdering Facility: [facility] Address: [address] [place], [place] [address] Performed By: #### 2 4323-8 ####[facility] LABCLIA [id number] [place] [address] [place] Calcium [Mass/Vol] 8.9 mg/dL Normal 8.5-10.2 [facility] Comment on above: Order Comment: Speci men Type: BLOOD SPECIMENOrdering Facility: [facility] Address: [address] [place] [address] Performed By: #### 2 4323-8 ####[facility] LABCLIA [id number] [place] [address] [place] Chloride [Moles/Vol] 93 mmol/L Low 98-107 [facility] Comment on above: Order Comment: Speci men Type: BLOOD SPECIMENOrdering Facility: [facility] Address: [address] [place] [address] Performed By: #### 2 4323-8 ####[facility] LABCLIA [id number] [place] [address] [place] CO2 [Moles/Vol] 28 mmol/L Normal 22-30 [facility] Comment on above: Order Comment: Speci men Type: BLOOD SPECIMENOrdering Facility: [facility] Address: [address] [place], [place] [address] Performed By: #### 2 4323-8 ####[facility] LABCLIA [id number] [facility] [place] [id number] [place] Creatinine [Mass/Vol] 4.23 mg/dL High 0.73-1.22 [facility] Comment on above: Order Comment: Speci men Type: BLOOD SPECIMENOrdering Facility: [facility] Address: [address] [place], [place] [address] Performed By: #### 2 4323-8 ####[facility] LABCLIA [id number] [place] [address] [place] Creatinine and Glomerular filtration rate.predicted panel (S/P/Bld) 13 mL/min/1.73m??? Low >=60 [facility] Comment on above: Order Comment: Lesvia aleman Type: BLOOD SPECIMENOrdering Facility: [facility] Address: [address] [place] [address] Result Comment: Tessa mated Glomerular Filtration Rate [...] actual GFR. Performed By: #### 2 4323-8 ####[facility] LABCLIA [id number] [place] [address] [place] Glucose [Mass/Vol] 371 mg/dL High 74-99 [facility] Comment on above: Order Comment: Lesvia aleman Type: BLOOD SPECIMENOrdering Facility: [facility] Address: [address] [place] [address] Result Comment: The [place] Diabetes Association (ADA) provides guidance for cutoff [...] Standards of Medical Care in Diabetes 2016, [place] Diabetes Association. Diabetes Care. 2016.39(Suppl 1). Performed By: #### 2 4323-8 ####[facility] LABCLIA [id number] [place] [address] [place] Potassium [Moles/Vol] 5.0 mmol/L Normal 3.7-5.1 [facility] Comment on above: Order Comment: Speci men Type: BLOOD SPECIMENOrdering Facility: [facility] Address: [address] [place] [address] Performed By: #### 2 4323-8 ####[facility] LABCLIA [id number] [place] [address] [place] Protein [Mass/Vol] 6.5 g/dL Normal 6.3-8.0 [facility] Comment on above: Order Comment: Speci men Type: BLOOD SPECIMENOrdering Facility: [facility] Address: [address] [place] [address] Performed By: #### 2 4323-8 ####[facility] LABCLIA [id number] [place] [address] [place] Sodium [Moles/Vol] 133 mmol/L Low 136-144 [facility] Comment on above: Order Comment: Speci men Type: BLOOD SPECIMENOrdering Facility: [facility] Address: [address] [place] [address] Performed By: #### 2 4323-8 ####[facility] LABCLIA [id number] [place] [address] [place] Urea nitrogen [Mass/Vol] 37 mg/dL High 9-24 [facility] Comment on above: Order Comment: Speci men Type: BLOOD SPECIMENOrdering Facility: [facility] Address: [address] [place] [address] Performed By: #### 2 4323-8 ####[facility] LABCLIA [id number] [place] [address] [place] HbA1c (Bld)on 03-28-2024 Average glucose Estimated from glycated hemoglobin (Bld) [Mass/Vol] 206 mg/dL Normal [facility] Comment on above: Order Comment: Speci men Type: BLOOD SPECIMENOrdering Facility: [facility] Address: [address] [place] [address] Result Comment: eAG: (Estimated average glucose) is a calculated value from HgbA1c and is direct marketing representative of the average blood glucose level in the last 2-3 month period. Performed By: #### 5 5454-3 ####[facility] LABCLIA [id number] [place] [address] [place] HbA1c (Bld) [Mass fraction] 8.8 % High 4.3-5.6 [facility] Comment on above: Order Comment: Speci men Type: BLOOD SPECIMENOrdering Facility: [facility] Address: [address] [place] [address] Result Comment: Raheel ican Diabetes Association guidelines indicate that patients with HgbA1c in the range 5.7-6.4% are at increased risk for development of diabetes, and intervention by lifestyle modification may be beneficial. HgbA1c greater or equal to 6.5% is considered diagnostic of diabetes. Performed By: #### 5 5454-3 ####[facility] LABCLIA [id number] [address] OF [facility] CNOVon 01-06-2024 CNOV Office Visit (FAMPWS ) PERLA THOMPSON ([id number]) 1935 M Date Time Provider Department 01/06/24 9:40 AM LAUREN ARZOLA During your visit today, we recorded the following information about you: Pulse Respiration Blood pressure Weight 58/minute 16/minute 128/58 95.6 kg Lauren Arzola APRN.PRINTING GRAY CLOTH TENDER 01/06/2024 9:59 AM Signed 01/04/2024 Patient presents [...] week. Follows with Dr. Faria Follows with [facility] cardiology for hx of Mobitz Type [...] ESRD (end stage renal disease) on dialysis ([facility]) Comment: , , Sat No date: Glaucoma Comment: Dr Jimenez [...] mouth once daily. Every other day Insulin Mackey, Disposable, (BD ULTRA-FINE SHAHEEN PEN NEEDLE) 32 gauge x 5/32 Use one needle for each dose. 1x/day. [...] Units by mouth once daily. Blood-Glucose Meter [facility] Dispense 1 kit. Dx: E11.65 Aspirin 81 [...] than HPI. (more content not included)... Normal [facility] KORon 09-08-2023 Potassium [Moles/Vol] 3.7 mmol/L Normal 3.5-5.0 [facility] ([place]) Comment on above: Performed By: #### K OR #### [facility] [address] [place] [address] LABORATORYOrdered By: Miguelina Ramirez on 09-08-2023 Blood Glucose Testing Reason Routine (09/08/23 2:30 PM) [facility] Work Phone: Glucose [Mass/Vol] 111 mg/dL Normal 82 - 115 mg/dL [facility] Work Phone: LABORATORYOrdered By: Nelli Gar on 09-08-2023 Potassium [Moles/Vol] 3.7 mmol/L Normal 3.5 - 5.0 mEq/L Main Rapid Comm SS LABORATORYOrdered By: Kailey Sanchez on 09-08-2023 Glucose [Mass/Vol] 147 mg/dL High 82 - 115 mg/dL [facility] Work Phone: Joaquín 09-06-2023 [facility] Telephone (HENNY) PERLA THOMPSON ([id number]) 1935 M Date Time Provider Department 09/06/23 HUSAM YAN During your visit today, we [...] for a rx to be sent to [facility] please. Please advise Husam Yan MD 09/06/2023 [...] 2 times daily. Dx: Type 2 DM -E1165 Insulin: No - blood sugar diagnostic (ACCU-CHEK LISA PLUS TEST STRP) test strip Test blood sugar(s) 2x daily. Dx E11.65. Insulin: No. - mecobalamin (B12 ACTIVE ORAL) Take 1 tablet by mouth once daily. Every other day - Insulin Mackey, Disposable, (BD ULTRA-FINE SHAHEEN PEN NEEDLE) 32 gauge x 5/32 Use one needle for each dose. 1x/day. [...] by mouth once daily. - Blood-Glucose Meter [facility] Dispense 1 kit. Dx: E11.65 - Aspirin [...] kidney disea (more content not included)... [facility] Telephone (FAMPWS) PERLA THOMPSON ([id number]) 1935 M Date Time Provider Department 08/08/23 HUSAM YAN During your visit today, we recorded the following information about you: Demetra Lopez 08/08/2023 8:32 AM Signed Perla is calling Husam Yan MD today to request Medication Problem (Freestyle gelacoi 14 day sensor kit - patient's sensor [...] calling: self Call patient at: at home [phone] (home) [phone] (cell) Was an appointment scheduled: No Closing statement: Results or non-symptom based questions: Thank you for calling [facility] [facility], your call will be returned within the [...] edema, with long-term current use of insulin ([facility]) [E11.3213, Z79.4] Order(s):flash glucose sensor (FREESTYLE GELACIO [...] once daily. Every other day - Insulin Mackey, Disposable, (BD ULTRA-FINE SHAHEEN PEN NEEDLE) 32 gauge x Use one needle for each dose. 1x/day. [...] by mouth once daily. - Blood-Glucose Meter [facility] [place] Dispense 1 kit. Dx: E11.65 - Aspirin [...] stage renal (more content not included)... Normal [facility] HEMOGLOBIN A1C (POC)on 12-06 HbA1c (Bld) [Mass fraction] 8.1 % Abnormal 4.2 - 5.6 % [facility] HEMOGLOBIN A1C (POC)on 09-06 HbA1c (Bld) [Mass fraction] 8.4 % Abnormal 4.2 - 5.6 % [facility] Comprehensive metabolic 2000 panelon 03-06-2022 Albumin [Mass/Vol] 3.9 g/dL 3.9 - 4.9 g/dL [facility] ALP [Catalytic activity/Vol] 56 U/L 38 - 113 U/L [facility] ALT [Catalytic activity/Vol] 17 U/L 10 - 54 U/L [facility] Anion gap [Moles/Vol] 13 mmol/L 9 - 18 mmol/L [facility] AST [Catalytic activity/Vol] 13 U/L Low 14 - 40 U/L [facility] Bilirubin [Mass/Vol] 0.4 mg/dL 0.2 - 1 .3 mg/dL [facility] Calcium [Mass/Vol] 9.1 mg/dL 8.5 - 10. 2 mg/dL [facility] Chloride [Moles/Vol] 95 mmol/L Low 97 - 10 5 mmol/L [facility] CO2 [Moles/Vol] 30 mmol/L 22 - 30 mmol/L [facility] Creatinine [Mass/Vol] 4.13 mg/dL High 0.73 - 1.22 mg/dL [facility] Estimated Glomerular Filtration Rate 14 mL/min/1.73m Low >=60 mL/min/1.73 m [facility] Glucose [Mass/Vol] 239 mg/dL High 74 - 99 mg/dL [facility] Potassium [Moles/Vol] 4.9 mmol/L 3.7 - 5.1 mmol/L [facility] Protein [Mass/Vol] 7.2 g/dL 6.3 - 8.0 g/dL [facility] Sodium [Moles/Vol] 138 mmol/L 136 - 144 mmol/L [facility] Urea nitrogen [Mass/Vol] 49 mg/dL High 9 - 24 mg/dL [facility] LIPID PANEL, NONFASTINGon Cholesterol [Mass/Vol] 146 mg/dL <200 mg/dL [facility] HDL Cholesterol, Nonfasting 46 mg/dL >39 mg/dL [facility] LDL Cholesterol, Nonfasting 89 mg/dL <100 mg/dL [facility] LDL/HDL Ratio, Nonfasting 1.93 mg/dL <2.54 mg/dL [facility] Non HDL Cholesterol, Nonfasting 100 mg/dL <130 mg/dL [facility] Total Chol/HDL Ratio, Nonfasting 3.17 mg/dL <5.10 mg/dL [facility] Triglycerides, Nonfasting 55 mg/dL <150 mg/dL [facility] VLDL Cholesterol, Nonfasting 11 mg/dL <30 mg/dL [facility] HbA1c (Bld)on 03-05-2022 Average glucose Estimated from glycated hemoglobin (Bld) [Mass/Vol] 209 mg/dL [facility] HbA1c (Bld) [Mass fraction] 8.9 % High 4.3 - 5.6 % [facility] Basophil percentageon 2021 Chloride [Moles/Vol] 103 mmol/L 98-107 [facility] Work Phone: Glucose [Mass/Vol] 263 mg/dL 74-106 [facility] Work Phone: Comment on above: Glucose result great er than or equal to 200 mg/dLsuggests DIABETES MELLITUS per A.D.A. criteria. Potassium [Moles/Vol] 4.3 mmol/L 3.5-5.1 [facility] Work Phone: Sodium [Moles/Vol] 138 mmol/L 136-145 [facility] Work Phone: WBC (Bld) [#/Vol] 8.1 10*3/uL 4.4-11.0 [facility] Work Phone: Blood erythrocytes count (nu mber/volume)on 11-06-2021 RBC (Bld) [#/Vol] 3.75 10*6/uL 4.6-6.2 [facility] Work Phone: Blood hemoglobin measurement (mass/volume)on 11-06-2021 Hemoglobin (Bld) [Mass/Vol] 11.4 g/dL 13.0-16.5 [facility] Work Phone: Blood platelet mean volumeon 11-06-2021 Platelet mean volume (Bld) [Entitic vol] 11.2 fL 6.2-12.0 [facility] Work Phone: Determination of erythrocyte mean corpuscular volume (MCV)on 11-06-2021 MCV (RBC) [Entitic vol] 94.9 fL 80-94 [facility] Work Phone: [phone] Hematocrit Auto (Bld) [Volum e fraction]on 11-06-2021 Hematocrit (Bld) [Volume fraction] 35.6 % 40-54 [facility] Work Phone: Laboratory - Chemistry and C hemistry - challengeon 11-06-2021 CO2 [Moles/Vol] 30.0 mmol/L 21.0-32.0 [facility] Work Phone: Urea nitrogen/Creatinine [Mass ratio] 12.6 mg/mg 10-20 [facility] Work Phone: [phone] Laboratory - Hematology and Cell countson 11-06-2021 Erythrocyte distribution width (RBC) [Entitic vol] 43.0 fL 35.1-43.9 [facility] Work Phone: [phone] Erythrocyte distribution width (RBC) [Ratio] 12.4 % 11.6-14.6 [facility] Work Phone: [phone] MCH (RBC) [Entitic mass] 30.4 pg 27.0-32.0 [facility] Work Phone: [phone] MCHC Auto (RBC) [Mass/Vol]on 11-06-2021 MCHC (RBC) [Mass/Vol] 32.0 g/dL 32-36 [facility] Work Phone: No Panel Informationon 11-06 Estimated Creatinine Clearance Calc 12.37 ml/min [facility] Work Phone: Estimated GFR (MDRD) Amer 17 mL/min >60 [facility] Work Phone: Comment on above: GFR Calc Estimated GFR (MDRD) Non-Af Amer 14 mL/min >60 [facility] Work Phone: Comment on above: Non- GFR Calc Platelets bldon 11-06-2021 Platelets (Bld) [#/Vol] 160 10*3/uL 150-450 [facility] Work Phone: Serum or plasma calcium illli urement (mass/volume)on 11-06-2021 Calcium [Mass/Vol] 9.0 mg/dL 8.5-10.1 [facility] Work Phone: Serum or plasma creatinine m easurement (mass/volume)on 11-06-2021 Creatinine [Mass/Vol] 4.30 mg/dL 0.70-1.30 [facility] Work Phone: Comment on above: The validity of the calculated GFR & GFRAA in patients over 70 years has not been determined. Clinical correlation is essential. Serum or plasma urea nitroge n measurement (mass/volume)on 11-06-2021 Urea nitrogen [Mass/Vol] 54 mg/dL 7-18 [facility] Work Phone: Thin prep Papanicolaou smear with manual screeningon 11-06-2021 Thin prep Papanicolaou smear with manual screening 5 5-15 [facility] Work Phone: XR Foot - bilateral AP and L ateral and obliqueon 03-04-2021 IMPRESSION: No acute bony finding. Plantar spurs Car Wash Attendant: NICHELLE Transcribe Date/Time: Mar 04 2021 12:13P Dictated by : FERNANDO JANE MD This examination was interpreted and the report reviewed and electronically signed by: FERNANDO JANE MD on Mar 04 2021 12:15PM [facility] DIVISION OF RADIOLOGY * * *Final Report* * * DATE OF EXAM: Mar 04 2021 9:48AM WOX [id number] - XR FOOT 3V AP/LAT/OBL DOALYS / PROCEDURE REASON: multiple diagnoses * * [...] these nonweightbearing views DIVISION OF RADIOLOGY Provider, [facility] - 03/04/2021 * * *Final Report* * [...] IMPRESSION: No acute bony finding. Plantar spurs Car Wash Attendant: PSCB Transcribe Date/Time: Mar 04 2021 12:13P Dictated by : FERNANDO JANE MD This examination was interpreted and the report reviewed and electronically signed by: FERNANDO JANE MD on Mar 04 2021 12:15PM [facility] Radiology Study observation (narrative) [facility] XR Foot - bilateral AP and L ateral and obliqueOrdered By: Ccf Provider on 03-04-2021 [facility] Office Visiton 10-27-2016 Documentation of current medications (procedure) Done Invalid Interpretation Code [facility] Work Phone: Fall risk assessment No Invalid Interpretation Code [facility] Work Phone: Protein mass conc Done [facility] Work Phone: Replaced Document: Eileen LORENZO Observationson 10-27-2016 EKG QRS axis -23 deg [facility] Work Phone: electrocardiogram interpretation Possible atrial fibrillation - Nonspecific T-abnormality. ABNORMAL Invalid Interpretation Code [facility] Work Phone: GE use only - for [employer] import when terms are not otherwise specified 431 ms Invalid Interpretation Code [facility] Work Phone: [phone] Interpretation Possible atrial fibrillation - Nonspecific T-abnormality. ABNORMAL [facility] Work Phone: P Sarita 1 deg [facility] Work Phone: [phone] P wave axis, electrocardiogram 1 deg Invalid Interpretation Code [facility] Work Phone: DC Interval 0 ms [facility] Work Phone: DC interval, electrocardiogram 0 ms Invalid Interpretation Code [facility] Work Phone: Pulse (Heart Rate) 69 /min Invalid Interpretation Code [facility] Work Phone: QRS axis, electrocardiogram -23 deg Invalid Interpretation Code [facility] Work Phone: QRS Duration 114 ms [facility] Work Phone: QRS duration, electrocardiogram 114 ms Invalid Interpretation Code [facility] Work Phone: QT Interval new path ms [facility] Work Phone: QT interval, electrocardiogram new path ms Invalid Interpretation Code [facility] Work Phone: QTc Liriano 431 ms [facility] Work Phone: T Sarita 90 deg [facility] Work Phone: T wave axis, electrocardiogram 90 deg Invalid Interpretation Code [facility] Work Phone: Clinical Lists Update: 10-26-2016 Tobacco smoking status NHIS Never smoker [facility] Work Phone: [phone] Tobacco use CPHS Never smoker Invalid Interpretation Code [facility] Work Phone: [phone] Clinical Lists Update: [facility]10-14-2016 Anion gap 14 mmol/L Invalid Interpretation Code [facility] Work Phone: [phone] Anion gap [Moles/Vol] 14 mmol/L [facility] Work Phone: [phone] Calcium 9.8 mg/dL Invalid Interpretation Code [facility] Work Phone: [phone] Chloride 97 mmol/L Invalid Interpretation Code [facility] Work Phone: [phone] CO2 25 mmol/L Invalid Interpretation Code [facility] Work Phone: [phone] CO2 (BldV) [Partial pressure] 25 mmol/L [facility] Work Phone: [phone] Creatinine 1.69 mg/dL High [facility] Work Phone: [phone] Glucose 264 mg/dL High [facility] Work Phone: [phone] Glucose [Mass/Vol] 264 mg/dL High [facility] Work Phone: [phone] Potassium 4.5 mmol/L Invalid Interpretation Code [facility] Work Phone: [phone] Sodium 136 mmol/L Invalid Interpretation Code [facility] Work Phone: [phone] Thyroid stimulating hormone (TSH) 1.29 u[iU]/mL Invalid Interpretation Code [facility] Work Phone: [phone] Urea nitrogen 21 mg/dL Invalid Interpretation Code [facility] Work Phone: [phone] Clinical Lists Update: [facility] 08-27-2016 Cholesterol 216 mg/dL Invalid Interpretation Code [facility] Work Phone: [phone] HDL Cholesterol 46 mg/dL Invalid Interpretation Code [facility] Work Phone: [phone] LDL Cholesterol 129 mg/dL Invalid Interpretation Code [facility] Work Phone: [phone] Triglyceride 206 mg/dL Invalid Interpretation Code [facility] Work Phone: [phone] Vital Signs Date Time Vital Sign Value Performing Clinician Charo telles 10-17-2024 10:25-0400 Body temperature 98.6 [degF] Dr. Jean Yan MD Work Phone: 9(502)971-017736 [place] [address] 10-17-2024 10:25-0400 Diastolic blood pressure 72 mm[Hg] Dr. Jean Yan MD Work Phone: 3(312)801-461381 [place] [address] 10-17-2024 10:25-0400 Heart rate 56 /min Dr. Jean Yan MD Work Phone: 3(224)832-454081 [place] [address] 10-17-2024 10:25-0400 Respiratory rate 16 /min Dr. Jean Yan MD Work Phone: 9(711)416-088581 [place] [address] 10-17-2024 10:25-0400 SaO2% (BldA) [Mass fraction] 93 % Dr. Jean Yan MD Work Phone: 0(031)727-776881 [place] [address] 10-17-2024 10:25-0400 Systolic blood pressure 135 mm[Hg] Dr. Jean Yan MD Work Phone: 0(134)264-012881 [place] [address] 10-03-2024 09:08-0400 Body temperature 98 [degF] Dr. Jean Yan MD Work Phone: 2(806)291-570181 [place] [address] 10-03-2024 09:08-0400 Diastolic blood pressure 54 mm[Hg] Dr. Jean Yan MD Work Phone: 1(155)325-262381 [place] [address] 10-03-2024 09:08-0400 Heart rate 48 /min Dr. Jean Yan MD Work Phone: 2(436)145-843581 [place] [address] 10-03-2024 09:08-0400 Respiratory rate 14 /min Dr. Jean Yan MD Work Phone: 8(646)658-633181 [place] [address] 10-03-2024 09:08-0400 SaO2% (BldA) [Mass fraction] 94 % Dr. Jean Yan MD Work Phone: 8(113)621-794481 [place] [address] 10-03-2024 09:08-0400 Systolic blood pressure 132 mm[Hg] Dr. Jean Yan MD Work Phone: 3(442)313-020781 [place] [address] 09-24-2024 10:09-0400 Body mass index (BMI) [Ratio] 31.9 kg/m2 Dr. Jean Yan MD Work Phone: 8(907)184-178681 [place] [address] 09-24-2024 10:09-0400 Body temperature 96 [degF] Dr. Jean Yan MD Work Phone: 7(285)073-988481 [place] [address] 09-24-2024 10:09-0400 Diastolic blood pressure 40 mm[Hg] Dr. Jean Yan MD Work Phone: 9(945)851-893781 [place] [address] 09-24-2024 10:09-0400 Heart rate 44 /min Dr. Jean Yan MD Work Phone: 0(359)299-690681 [place] [address] 09-24-2024 10:09-0400 Respiratory rate 16 /min Dr. Jean Yan MD Work Phone: 5(694)021-752781 [place] [address] 09-24-2024 10:09-0400 Systolic blood pressure 121 mm[Hg] Dr. Jean Yan MD Work Phone: 8(265)905-945381 [place] [address] 09-20-2024 00:41-0400 Body weight 92.[address] Jean Yan MD Work Phone: 8(221)246-922281 [place] [address] 09-04-2024 12:16-0400 Body mass index (BMI) [Ratio] 29.9 kg/m2 Dr. Jean Yan MD Work Phone: 9(952)972-466281 [place] [address] 09-04-2024 12:16-0400 Body temperature 97.2 [degF] Dr. Jean Yan MD Work Phone: 6(936)526-740781 [place] [address] 09-04-2024 12:16-0400 Body weight 86.[address] Jean Yan MD Work Phone: 3(736)890-524081 [place] [address] 09-04-2024 12:16-0400 Diastolic blood pressure 59 mm[Hg] Dr. Jean Yan MD Work Phone: 0(599)121-412881 [place] [address] 09-04-2024 12:16-0400 Heart rate 53 /min Dr. Jean Yan MD Work Phone: 7(258)537-293881 [place] [address] 09-04-2024 12:16-0400 Respiratory rate 14 /min Dr. Jean Yan MD Work Phone: 2(315)270-479281 [place] [address] 09-04-2024 12:16-0400 SaO2% (BldA) [Mass fraction] 96 % Dr. Jean Yan MD Work Phone: 5(676)879-344181 [place] [address] 09-04-2024 12:16-0400 Systolic blood pressure 108 mm[Hg] Dr. Jean Yan MD Work Phone: 6(025)554-683281 [place] [address] 09-03-2024 14:19-0400 Body height 170.[address] Jean Yan MD Work Phone: 9(836)696-465881 [place] [address] 08-30-2024 21:37-0400 Inhaled oxygen flow rate 2 L/min Dr. Jean Yan MD Work Phone: 1(213)319-781981 [place] [address] 08-27-2024 08:54-0400 Body mass index (BMI) [Ratio] 31.9 kg/m2 Dr. Jean Yan MD Work Phone: 4(889)991-007781 [place] [address] 08-27-2024 08:54-0400 Diastolic blood pressure 61 mm[Hg] Dr. Jean Yan MD Work Phone: 0(796)032-277581 [place] [address] 08-27-2024 08:54-0400 Heart rate 66 /min Dr. Jean Yan MD Work Phone: 8(128)071-556781 [place] [address] 08-27-2024 08:54-0400 Respiratory rate 16 /min Dr. Jean Yan MD Work Phone: 8(236)366-712981 [place] [address] 08-27-2024 08:54-0400 Systolic blood pressure 100 mm[Hg] Dr. Jean Yan MD Work Phone: 1(874)871-706781 [place] [address] 08-21-2024 00:56-0400 Body temperature 97.4 [degF] Dr. Jean Yan MD Work Phone: 0(567)025-914781 [place] [address] 08-21-2024 00:56-0400 Body weight 92.[address] Jean Yan MD Work Phone: 2(666)384-469681 [place] [address] 08-20-2024 10:36-0400 Body mass index (BMI) [Ratio] 31.9 kg/m2 Dr. Jean Yan MD Work Phone: 7(510)429-532381 [place] [address] 08-20-2024 10:36-0400 Body temperature 97.4 [degF] Dr. Jean Yan MD Work Phone: 8(112)979-575581 [place] [address] 08-20-2024 10:36-0400 Diastolic blood pressure 39 mm[Hg] Dr. Jean Yan MD Work Phone: 4(526)049-064881 [place] [address] 08-20-2024 10:36-0400 Heart rate 42 /min Dr. Jean Yan MD Work Phone: 2(745)609-391381 [place] [address] 08-20-2024 10:36-0400 Respiratory rate 16 /min Dr. Jean Yan MD Work Phone: 7(651)458-908881 [place] [address] 08-20-2024 10:36-0400 Systolic blood pressure 123 mm[Hg] Dr. Jean Yan MD Work Phone: 2(897)925-006081 [place] [address] 08-01-2024 19:00-0400 Diastolic blood pressure 46 mm[Hg] Dr. Jean Yan MD Work Phone: 9(494)943-845081 [place] [address] 08-01-2024 19:00-0400 Heart rate 47 /min Dr. Jean Yan MD Work Phone: 5(166)531-624081 [place] [address] 08-01-2024 19:00-0400 Respiratory rate 18 /min Dr. Jean Yan MD Work Phone: 0(421)110-723481 [place] [address] 08-01-2024 19:00-0400 SaO2% (BldA) [Mass fraction] 98 % Dr. Jean Yan MD Work Phone: 3(511)404-107881 [place] [address] 08-01-2024 19:00-0400 Systolic blood pressure 113 mm[Hg] Dr. Jean Yan MD Work Phone: 8(193)082-454081 [place] [address] 08-01-2024 15:00-0400 Body temperature 98.1 [degF] Dr. Jean Yan MD Work Phone: 7(781)325-509781 [place] [address] 07-21-2024 02:32-0500 Body weight 92.[address] Jean Yan MD Work Phone: 9(150)516-085581 [place] [address] 07-20-2024 20:26-0500 Body temperature 98.1 [degF] Dr. Jean Yan MD Work Phone: 0(089)795-173081 [place] [address] 07-20-2024 20:26-0500 Diastolic blood pressure 47 mm[Hg] Dr. Jean Yan MD Work Phone: 5(906)547-243081 [place] [address] 07-20-2024 20:26-0500 Heart rate 56 /min Dr. Jean Yan MD Work Phone: 0(338)763-253581 [place] [address] 07-20-2024 20:26-0500 Respiratory rate 18 /min Dr. Jean Yan MD Work Phone: 7(120)087-747181 [place] [address] 07-20-2024 20:26-0500 SaO2% (BldA) [Mass fraction] 97 % Dr. Jean Yan MD Work Phone: 9(075)119-707781 [place] [address] 07-20-2024 20:26-0500 Systolic blood pressure 143 mm[Hg] Dr. Jean Yan MD Work Phone: 0(477)032-181181 [place] [address] 07-20-2024 05:46-0500 Body mass index (BMI) [Ratio] 31.8 kg/m2 Dr. Jean Yan MD Work Phone: 6(614)158-024281 [place] [address] 07-20-2024 05:46-0500 Body weight 92.[address] Jean Yan MD Work Phone: 2(565)068-828181 [place] [address] 07-16-2024 15:18-0500 Inhaled oxygen flow rate 2 L/min Dr. Jean Yan MD Work Phone: 3(859)279-449281 [place] [address] 07-11-2024 10:27-0500 Body mass index (BMI) [Ratio] 31.9 kg/m2 Dr. Jean Yan MD Work Phone: 6(152)369-411681 [place] [address] 07-11-2024 10:27-0500 Body temperature 96.7 [degF] Dr. Jean Yan MD Work Phone: 9(005)501-033781 [place] [address] 07-11-2024 10:27-0500 Diastolic blood pressure 45 mm[Hg] Dr. Jean Yan MD Work Phone: 9(081)285-769581 [place] [address] 07-11-2024 10:27-0500 Heart rate 60 /min Dr. Jean Yan MD Work Phone: 6(736)426-841681 [place] [address] 07-11-2024 10:27-0500 Respiratory rate 18 /min Dr. Jean Yan MD Work Phone: 7(466)081-209781 [place] [address] 07-11-2024 10:27-0500 Systolic blood pressure 119 mm[Hg] Dr. Jean Yan MD Work Phone: 5(055)169-096281 [place] [address] 07-07-2024 22:04-0500 Body temperature 97.8 [degF] Dr. Jean Yan MD Work Phone: 1(952)116-353581 [place] [address] 07-07-2024 22:04-0500 Diastolic blood pressure 61 mm[Hg] Dr. Jean Yan MD Work Phone: 9(069)468-061681 [place] [address] 07-07-2024 22:04-0500 Heart rate 74 /min Dr. Jean Yan MD Work Phone: 2(383)331-345781 [place] [address] 07-07-2024 22:04-0500 Respiratory rate 19 /min Dr. Jean Yan MD Work Phone: 8(409)785-787781 [place] [address] 07-07-2024 22:04-0500 SaO2% (BldA) [Mass fraction] 94 % Dr. Jean Yan MD Work Phone: 3(464)189-050081 [place] [address] 07-07-2024 22:04-0500 Systolic blood pressure 119 mm[Hg] Dr. Jean Yan MD Work Phone: 8(368)410-229181 [place] [address] 07-07-2024 17:35-0500 Body mass index (BMI) [Ratio] 33.7 kg/m2 Dr. Jean Yan MD Work Phone: 1(895)822-054581 [place] [address] 07-07-2024 17:35-0500 Body weight 97.[address] Jean Yan MD Work Phone: 2(337)155-205781 [place] [address] 07-03-2024 17:24-0500 Body temperature 97.8 [degF] Dr. Jean Yan MD Work Phone: 1(892)111-839581 [place] [address] 07-03-2024 17:24-0500 Diastolic blood pressure 43 mm[Hg] Dr. Jean Yan MD Work Phone: 9(952)207-111381 [place] [address] 07-03-2024 17:24-0500 Heart rate 59 /min Dr. Jean Yan MD Work Phone: 3(705)566-114681 [place] [address] 07-03-2024 17:24-0500 Respiratory rate 16 /min Dr. Jean Yan MD Work Phone: 8(279)573-861281 [place] [address] 07-03-2024 17:24-0500 SaO2% (BldA) [Mass fraction] 98 % Dr. Jean Yan MD Work Phone: 9(506)560-056281 [place] [address] 07-03-2024 17:24-0500 Systolic blood pressure 109 mm[Hg] Dr. Jean Yan MD Work Phone: 7(093)886-831081 [place] [address] 07-03-2024 12:45-0500 Body mass index (BMI) [Ratio] 37.7 kg/m2 Dr. Jean Yan MD Work Phone: 3(694)762-181481 [place] [address] 07-03-2024 12:45-0500 Body weight 109.[address] Jean Yan MD Work Phone: 9(691)587-452581 [place] [address] 07-02-2024 20:15-0500 Body temperature 98 [degF] Dr. Jean Yan MD Work Phone: 4(509)642-386081 [place] [address] 07-02-2024 20:15-0500 Diastolic blood pressure 47 mm[Hg] Dr. Jean Yan MD Work Phone: 0(098)472-522481 [place] [address] 07-02-2024 20:15-0500 Heart rate 56 /min Dr. Jean Yan MD Work Phone: 5(925)323-465681 [place] [address] 07-02-2024 20:15-0500 Respiratory rate 18 /min Dr. Jean Yan MD Work Phone: 7(222)510-976081 [place] [address] 07-02-2024 20:15-0500 SaO2% (BldA) [Mass fraction] 97 % Dr. Jean Yan MD Work Phone: 4(096)076-499881 [place] [address] 07-02-2024 20:15-0500 Systolic blood pressure 115 mm[Hg] Dr. Jean Yan MD Work Phone: 6(107)333-086881 [place] [address] 07-02-2024 16:22-0500 Body mass index (BMI) [Ratio] 32.5 kg/m2 Dr. Jean Yan MD Work Phone: 7(347)137-835581 [place] [address] 07-02-2024 16:22-0500 Body weight 94.[address] Jean Yan MD Work Phone: 6(798)306-556881 [place] [address] 06-23-2024 02:27-0500 Body weight 92.[address] Jean Yan MD Work Phone: 8(970)560-148181 [place] [address] 06-20-2024 08:47-0500 Body temperature 97.5 [degF] Dr. Jean Yan MD Work Phone: 9(109)973-210881 [place] [address] 06-20-2024 08:47-0500 Body weight 96.[address] Jean Yan MD Work Phone: 0(718)699-812981 [place] [address] 06-20-2024 08:47-0500 Diastolic blood pressure 55 mm[Hg] Dr. Jean Yan MD Work Phone: 3(216)109-831381 [place] [address] 06-20-2024 08:47-0500 Heart rate 57 /min Dr. Jean Yan MD Work Phone: 5(141)020-286981 [place] [address] 06-20-2024 08:47-0500 Respiratory rate 14 /min Dr. Jean Yan MD Work Phone: 1(318)705-641481 [place] [address] 06-20-2024 08:47-0500 Systolic blood pressure 135 mm[Hg] Dr. Jean Yan MD Work Phone: 3(836)[phone] [place] [address] 06-19-2024 11:43-0500 Body mass index (BMI) [Ratio] 31.9 kg/m2 Dr. Jean Yan MD Work Phone: 6(332)567-396381 [place] [address] 06-19-2024 11:43-0500 Respiratory rate 18 /min Dr. Jean Yan MD Work Phone: 0(432)818-498081 [place] [address] 06-12-2024 11:21-0500 Body temperature 96.7 [degF] Dr. Jean Yan MD Work Phone: 3(042)874-303681 [place] [address] 06-06-2024 10:00-0500 Body temperature 97 [degF] Dr. Jean Yan MD Work Phone: 8(108)493-564281 [place] [address] 06-06-2024 10:00-0500 Diastolic blood pressure 67 mm[Hg] Dr. Jean Yan MD Work Phone: 8(672)954-473381 [place] [address] 06-06-2024 10:00-0500 Heart rate 84 /min Dr. Jean Yan MD Work Phone: 7(855)607-814381 [place] [address] 06-06-2024 10:00-0500 Respiratory rate 16 /min Dr. Jean Yan MD Work Phone: 7(430)034-817581 [place] [address] 06-06-2024 10:00-0500 SaO2% (BldA) [Mass fraction] 95 % Dr. Jean Yan MD Work Phone: 2(151)660-699981 [place] [address] 06-06-2024 10:00-0500 Systolic blood pressure 101 mm[Hg] Dr. Jean Yan MD Work Phone: 2(195)776-027281 [place] [address] 06-06-2024 06:39-0500 Body mass index (BMI) [Ratio] 33.6 kg/m2 Dr. Jean Yan MD Work Phone: [facility] 06-06-2024 06:39-0500 Body weight 97.[address] Jean Yan MD Work Phone: 2(915)629-557236 [place] [address] 05-29-2024 10:49-0500 Diastolic blood pressure 31 mm[Hg] Dr. Jean Yan MD Work Phone: 7(611)121-274436 [place] [address] 05-29-2024 10:49-0500 Heart rate 58 /min Dr. Jean Yan MD Work Phone: 5(627)661-099781 [place] [address] 05-29-2024 10:49-0500 Systolic blood pressure 111 mm[Hg] Dr. Jean Yan MD Work Phone: 4(572)009-933436 [place] [address] 05-23-2024 00:51-0500 Body weight 92.[address] Jean Yan MD Work Phone: [facility] 04-14-2024 10:11-0500 Body temperature 99.1 [degF] Yolanda Moomaw HVAC ENGINEER.PRINTING GRAY CLOTH TENDER Work Phone: [facility] 04-14-2024 10:11-0500 Diastolic blood pressure 60 mm[Hg] Yolanda Moomaw HVAC ENGINEER.PRINTING GRAY CLOTH TENDER Work Phone: [facility] 04-14-2024 10:11-0500 Heart rate 76 /min Yolanda Moomaw HVAC ENGINEER.PRINTING GRAY CLOTH TENDER Work Phone: [facility] 04-14-2024 10:11-0500 Respiratory rate 16 /min Yolanda Moomaw HVAC ENGINEER.PRINTING GRAY CLOTH TENDER Work Phone: [facility] 04-14-2024 10:11-0500 SaO2% (BldA) [Mass fraction] 94 % Yolanda Moomaw HVAC ENGINEER.PRINTING GRAY CLOTH TENDER Work Phone: [facility] 04-14-2024 10:11-0500 Systolic blood pressure 124 mm[Hg] Yolanda Moomaw HVAC ENGINEER.PRINTING GRAY CLOTH TENDER Work Phone: [facility] 03-28-2024 12:54-0500 Body mass index (BMI) [Ratio] 34.25 kg/m2 Lauren Podlogar HVAC ENGINEER.PRINTING GRAY CLOTH TENDER Work Phone: [facility] 03-28-2024 12:54-0500 Body weight 99.2 kg Lauren Podlogar HVAC ENGINEER.PRINTING GRAY CLOTH TENDER Work Phone: [facility] 03-28-2024 12:54-0500 Diastolic blood pressure 48 mm[Hg] Lauren Podlogar HVAC ENGINEER.PRINTING GRAY CLOTH TENDER Work Phone: [facility] 03-28-2024 12:54-0500 Heart rate 47 /min Lauren Podlogar HVAC ENGINEER.PRINTING GRAY CLOTH TENDER Work Phone: [facility] 03-28-2024 12:54-0500 Respiratory rate 18 /min Lauren Podlogar HVAC ENGINEER.PRINTING GRAY CLOTH TENDER Work Phone: [facility] 03-28-2024 12:54-0500 SaO2% (BldA) [Mass fraction] 98 % Lauren Podlogar HVAC ENGINEER.PRINTING GRAY CLOTH TENDER Work Phone: [facility] 03-28-2024 12:54-0500 Systolic blood pressure 118 mm[Hg] Lauren Podlogar HVAC ENGINEER.PRINTING GRAY CLOTH TENDER Work Phone: [facility] 01-06-2024 09:36-0400 Body mass index (BMI) [Ratio] 33.01 kg/m2 Lauren Podlogar HVAC ENGINEER.PRINTING GRAY CLOTH TENDER Work Phone: [facility] 01-06-2024 09:36-0400 Body weight 95.6 kg Lauren Podlogar HVAC ENGINEER.PRINTING GRAY CLOTH TENDER Work Phone: [facility] 01-06-2024 09:36-0400 Diastolic blood pressure 58 mm[Hg] Lauren Podlogar HVAC ENGINEER.PRINTING GRAY CLOTH TENDER Work Phone: [facility] 01-06-2024 09:36-0400 Heart rate 58 /min Laruen Podlogar HVAC ENGINEER.PRINTING GRAY CLOTH TENDER Work Phone: [facility] 01-06-2024 09:36-0400 Respiratory rate 16 /min Lauren Podlogar HVAC ENGINEER.PRINTING GRAY CLOTH TENDER Work Phone: [facility] 01-06-2024 09:36-0400 SaO2% (BldA) [Mass fraction] 97 % Lauren Podlogar HVAC ENGINEER.PRINTING GRAY CLOTH TENDER Work Phone: [facility] 01-06-2024 09:36-0400 Systolic blood pressure 128 mm[Hg] Lauren Podlogar HVAC ENGINEER.PRINTING GRAY CLOTH TENDER Work Phone: [facility] 09-08-2023 14:30-0400 Body temperature 96.62 [degF] JEAN PIERRE ARREAGA MD [address] [place] [address] 09-08-2023 14:30-0400 Diastolic Blood Pressure Non-Invasive 50 mm[Hg] JEAN PIERRE ARREAGA MD [address] 09-08-2023 14:30-0400 Heart rate 53 /min JEAN PIERRE ARREAGA MD [address] [place] [address] 09-08-2023 14:30-0400 Respiratory rate 16 /min JEAN PIERRE ARREAGA MD [address] 09-08-2023 14:30-0400 Systolic Blood Pressure Non-Invasive 140 mm[Hg] JEAN PIERRE ARREAGA MD [address] 09-08-2023 14:13-0400 Body temperature 96.98 [degF] JEAN PIERRE ARREAGA MD [address] [place] [address] 09-08-2023 14:13-0400 Diastolic Blood Pressure Non-Invasive 49 mm[Hg] JEAN PIERRE ARREAGA MD [address] [place] [address] 09-08-2023 14:13-0400 Heart rate 51 /min JEAN PIERRE ARREAGA MD [address] [place] [address] 09-08-2023 14:13-0400 Mean blood pressure 74 mm[Hg] JEAN PIERRE ARREAGA MD [address] [place] [address] 09-08-2023 14:13-0400 Respiratory rate 16 /min JEAN PIERRE ARREAGA MD [address] [place] [address] 09-08-2023 14:13-0400 Systolic Blood Pressure Non-Invasive 134 mm[Hg] JEAN PIERRE ARREAGA MD [address] [place] [address] 09-08-2023 13:58-0400 Diastolic Blood Pressure Non-Invasive 49 mm[Hg] JEAN PIERRE ARREAGA MD [address] [place] [address] 09-08-2023 13:58-0400 Heart rate 45 /min JEAN PIERRE ARREAGA MD [address] [place] [address] 09-08-2023 13:58-0400 Mean blood pressure 74 mm[Hg] JEAN PIERRE ARREAGA MD [address] [place] [address] 09-08-2023 13:58-0400 Respiratory rate 16 /min JEAN PIERRE ARREAGA MD [address] [place] [address] 09-08-2023 13:58-0400 Systolic Blood Pressure Non-Invasive 130 mm[Hg] JEAN PIERRE ARREAGA MD [address] [place] [address] 09-08-2023 13:43-0400 Body temperature 96.98 [degF] JEAN PIERRE ARREAGA MD [address] [place] [address] 09-08-2023 13:43-0400 Heart rate 44 /min JEAN PIERRE ARREAGA MD [address] [place] [address] 09-08-2023 13:43-0400 Mean blood pressure 73 mm[Hg] JEAN PIERRE ARREAGA MD [address] [place] [address] 09-08-2023 13:35-0400 Body temperature 95.05 [degF] JEAN PIERRE ARREAGA MD [address] [place] [address] 09-08-2023 13:35-0400 Respiratory Rate - Anes 23 br/min JEAN PIERRE ARREAGA MD [facility] 09-08-2023 13:30-0400 Body temperature 94.95 [degF] JEAN PIERRE ARREAGA MD [facility] 09-08-2023 13:30-0400 Respiratory Rate - Anes 21 br/min JEAN PIERRE ARREAGA MD [facility] 09-08-2023 13:25-0400 Body temperature 94.75 [degF] JEAN PIERRE ARREAGA MD [facility] 09-08-2023 13:25-0400 Respiratory Rate - Anes 11 br/min JEAN PIERRE ARREAGA MD [facility] 09-08-2023 11:18-0400 Body height 170.2 cm JEAN PIERRE ARREAGA MD [address] [place] [address] 09-08-2023 11:18-0400 Body weight 98.7 kg JEAN PIERRE ARREAGA MD [facility] 09-08-2023 10:55-0400 Heart rate 56 /min JEAN PIERRE ARREAGA MD [facility] 12-06-2022 09:18-0400 Body weight 97.98 kg Laurne Podlogar HVAC ENGINEER.PRINTING GRAY CLOTH TENDER Work Phone: [facility] 12-06-2022 09:18-0400 Diastolic blood pressure 60 mm[Hg] Lauren Podlogar HVAC ENGINEER.PRINTING GRAY CLOTH TENDER Work Phone: [facility] 12-06-2022 09:18-0400 Heart rate 50 /min Lauren Podlogar HVAC ENGINEER.PRINTING GRAY CLOTH TENDER Work Phone: [facility] 12-06-2022 09:18-0400 Respiratory rate 16 /min Lauren Podlogar HVAC ENGINEER.PRINTING GRAY CLOTH TENDER Work Phone: [facility] 12-06-2022 09:18-0400 SaO2% (BldA) [Mass fraction] 96 % Lauren Podlogar HVAC ENGINEER.PRINTING GRAY CLOTH TENDER Work Phone: [facility] 12-06-2022 09:18-0400 Systolic blood pressure 128 mm[Hg] Lauren Podlogar HVAC ENGINEER.PRINTING GRAY CLOTH TENDER Work Phone: [facility] 09-06-2022 09:54-0400 Body weight 99.52 kg Lauren Podlogar HVAC ENGINEER.PRINTING GRAY CLOTH TENDER Work Phone: [facility] 09-06-2022 09:54-0400 Diastolic blood pressure 62 mm[Hg] Lauren Podlogar HVAC ENGINEER.PRINTING GRAY CLOTH TENDER Work Phone: [facility] 09-06-2022 09:54-0400 Heart rate 58 /min Lauren Podlogar HVAC ENGINEER.PRINTING GRAY CLOTH TENDER Work Phone: [facility] 09-06-2022 09:54-0400 Respiratory rate 18 /min Lauren Podlogar HVAC ENGINEER.PRINTING GRAY CLOTH TENDER Work Phone: [facility] 09-06-2022 09:54-0400 SaO2% (BldA) [Mass fraction] 93 % Lauren Podlogar HVAC ENGINEER.PRINTING GRAY CLOTH TENDER Work Phone: [facility] 09-06-2022 09:54-0400 Systolic blood pressure 138 mm[Hg] Lauren Podlogar HVAC ENGINEER.PRINTING GRAY CLOTH TENDER Work Phone: [facility] 06-07-2022 11:12-0500 Diastolic blood pressure 62 mm[Hg] Husam Yan MD Work Phone: [facility] 06-07-2022 11:12-0500 Systolic blood pressure 144 mm[Hg] Husam Yan MD Work Phone: [facility] 06-07-2022 10:29-0500 Body weight 98.7 kg Husam Yan MD Work Phone: [facility] 06-07-2022 10:29-0500 Heart rate 58 /min Husam Yan MD Work Phone: [facility] 06-07-2022 10:29-0500 Respiratory rate 16 /min Husam Yan MD Work Phone: [facility] 06-07-2022 10:29-0500 SaO2% (BldA) [Mass fraction] 96 % Husam Yan MD Work Phone: [facility] 03-05-2022 09:46-0400 Body weight 98.16 kg Husam Yan MD Work Phone: [facility] 03-05-2022 09:46-0400 Diastolic blood pressure 60 mm[Hg] Husam Yan MD Work Phone: [facility] 03-05-2022 09:46-0400 Heart rate 58 /min Husam Yan MD Work Phone: [facility] 03-05-2022 09:46-0400 Respiratory rate 16 /min Husam Yan MD Work Phone: [facility] 03-05-2022 09:46-0400 Systolic blood pressure 136 mm[Hg] Husam Yan MD Work Phone: [facility] 11-06-2021 09:22-0400 Body height 172.[address] Jean Yan Work Phone: [facility] Work Phone: 11-06-2021 09:22-0400 Body weight 97.[address] Jean Yan Work Phone: [facility] Work Phone: 11-05-2021 09:04-0400 Body mass index (BMI) [Ratio] 32.5 kg/m2 Dr. Jean Yan Work Phone: [facility] Work Phone: 10-21-2021 14:22-0400 Body mass index (BMI) [Ratio] 32.5 kg/m2 Dr. Jean Yan Work Phone: [facility] Work Phone: 10-21-2021 14:22-0400 Body temperature 98 [degF] Dr. Jean Yan Work Phone: [facility] Work Phone: 10-21-2021 14:22-0400 Body weight 97.[address] Jean Yan Work Phone: [facility] Work Phone: 10-21-2021 14:22-0400 Diastolic blood pressure 75 mm[Hg] Dr. Jean Yan Work Phone: [facility] Work Phone: 10-21-2021 14:22-0400 Heart rate 43 /min Dr. Jean Yan Work Phone: [facility] Work Phone: 10-21-2021 14:22-0400 Respiratory rate 16 /min Dr. Jean Yan Work Phone: [facility] Work Phone: 10-21-2021 14:22-0400 SaO2% (BldA) [Mass fraction] 93 % Dr. Jean Yan Work Phone: [facility] Work Phone: 10-21-2021 14:22-0400 Systolic blood pressure 166 mm[Hg] Dr. Jean Yan Work Phone: [facility] Work Phone: 10-27-2016 15:34-0400 Heart rate 69 /min [facility] Work Phone: 10-27-2016 15:09-0400 BMI (Body Mass Index) 33.15 kg/m2 [facility] Work Phone: 10-27-2016 15:09-0400 Body weight 101.83 kg [facility] Work Phone: 10-27-2016 15:09-0400 BP Diastolic 70 mm[Hg] [facility] Work Phone: 10-27-2016 15:09-0400 BP Systolic 152 mm[Hg] [facility] Work Phone: 10-27-2016 15:0400 Height 175.26 cm [facility] Work Phone: 10-27-2016 15:09-0400 Pulse (Heart Rate) 64 /min [facility] Work Phone: 10-27-2016 15:-0400 Respiratory Rate 20 /min [facility] Work Phone: 10-27-2016 15:09-0400 Weight 101.83 kg [facility] Work Phone: Encounters Encounter Date Encounter Type Care Provider Facility Start: 11-05-2024 ambulatory Efewongbe Oleghe OLS Fa cility:[facility] Start: 10-29-2024 End: 10-29-2024 ambulatory Efewongbe Oleghe Facility:[facility] Start: 10-22-2024 ambulatory Efewongbe Oleghe OLS Fa cility:[facility] Start: 10-17-2024 End: 10-17-2024 Salma MINER [facility] Work Phone: Start: 10-17-2024 End: 10-17-2024 ambulatory Salma Cervantes Facility:[facility] Start: 10-16-2024 ambulatory Efewongbe Oleghe OLS Fa cility:[facility] Start: 10-16-2024 [facility] Start: 10-08-2024 ambulatory Efewongbe Oleghe OLS Fa cility:[facility] Start: 10-08-2024 [facility] Start: 10-03-2024 End: 10-03-2024 Salma MINER [facility] Work Phone: Start: 10-03-2024 End: 10-03-[address] Jean Yan MD Work Phone: [facility] Work Phone: Start: 10-02-2024 End: 10-02-[address] Nando Wiggins MD Work Phone: [facility] Work Phone: Start: 10-02-2024 End: 10-02-2024 [facility] Start: 10-02-2024 End: 10-02-2024 ambulatory Effili Brownee OLS Facility:[facility] Start: 09-24-2024 ambulatory Warren Whitaker ty:[facility] Start: 09-24-2024 Dr. Randal Damico MD - [facility] Start: 09-24-2024 End: 10-18-[address] Jean Yan MD Work Phone: [facility] Work Phone: Start: 09-24-2024 End: 10-18-2024 Dr. Randal [facility]ico [facility] Work Phone: Start: 09-24-2024 End: 09-24-2024 ambulatory Effili Brownee OLS Facility:[facility] Start: 09-21-2024 ambulatory Salma Cervantes Facility:[facility] Start: 09-17-2024 Nando Wiggins MD [facility] Start: 09-17-2024 End: 09-17-2024 ambulatory Effili Brownee OLS Facility:[facility] Start: 09-12-2024 End: 09-12-[address] Jean Yan MD Work Phone: [facility] Work Phone: Start: 09-12-2024 End: 09-12-2024 [facility] Start: 09-12-2024 End: 09-12-2024 ambulatory Efewsrinathbe Holliee OLS Facility:[facility] Start: 09-10-2024 ambulatory Efewsrinathbe Holliee OLS Fa cility:[facility] Start: 09-10-2024 Nando Wiggins MD [facility] Start: 09-05-2024 End: 09-05-2024 ambulatory Nando Wiggins Facility:[facility] Start: 09-05-2024 End: 09-05-2024 Meredith STEWART -[facility] Work Phone: Start: 09-04-2024 Salma [facility] Start: 09-03-2024 Dr. Earl White MD -[facility] Start: 09-03-2024 Dr. Randal Damico MD -[facility] Start: 09-02-2024 Salma MINER [facility] Start: 09-01-2024 Salma MINER [facility] Start: 08-31-2024 ambulatory [facility] Start: 08-31-2024 Dr. Randal Damico MD [facility] Start: 08-31-2024 Salma MINER [facility] Start: 08-30-2024 Salma MINER [facility] Start: 08-30-2024 Dr. Randal Damico MD [facility] Start: 08-29-2024 ambulatory [facility] Start: 08-29-2024 End: 09-04-2024 Evaluation and management of inpatient [facility] Facility:[facility] Start: 08-29-2024 End: 09-04-2024 Dr. Earl White MD -Medical Surgical 3 Work Phone: Start: 08-29-2024 Dr. Earl White MD [facility] Start: 08-29-2024 ambulatory [facility] Start: 08-28-2024 ambulatory Nando SHERWOOD Fa cility:[facility] Start: 08-28-2024 Nando Wiggins MD [facility] Start: 08-27-2024 ambulatory Warren Mendoza Julianne ty:[facility] Start: 08-27-2024 Dr. Randal Damico MD [facility] Start: 08-27-2024 End: 09-19-2024 ambulatory Randal Damico Facility:[facility] Start: 08-27-2024 End: 09-19-2024 Dr. Randal [facility] Work Phone: Start: 08-27-2024 End: 08-27-2024 [facility] Facility:[facility] Start: 08-20-2024 ambulatory Randal Mookie Facility:[facility] Start: 08-20-2024 Dr. Randal Damico MD -[facility] Start: 08-20-2024 End: 08-20-2024 ambulatory [place] Facility:[facility] Start: 08-20-2024 End: 08-20-2024 Dr. Randal Damico MD [facility] Work Phone: Start: 08-17-2024 ambulatory Salma Cervantes Facility:[facility] Start: 08-14-2024 End: 08-14-2024 ambulatory [facility] Facility:[facility] Start: 08-14-2024 End: 08-14-2024 Dr. Nando Wiggins MD -[facility] Work Phone: Start: 08-13-2024 ambulatory Randal Damico Facility:[facility] Start: 08-13-2024 End: 08-13-2024 Dr. Randal Damico MD -[facility] Start: 08-13-2024 End: 08-13-2024 ambulatory Nando SHERWOOD Facility:[facility] Start: 08-06-2024 ambulatory Randal Mookie Facility:[facility] Start: 08-06-2024 Dr. Randal Damico MD -[facility] Start: 08-01-2024 End: 08-01-2024 Emergency department patient visit [facility] Facility:[facility] Start: 08-01-2024 End: 08-01-2024 ambulatory [facility] Facility:[facility] Start: 08-01-2024 End: 08-01-2024 [facility] Start: 07-31-2024 End: 07-31-2024 ambulatory [facility] Facility:[facility] Start: 07-31-2024 End: 07-31-2024 Meredith Guevara MANAGER MASSAGE DEPARTMENTMary AnneC -[facility] Work Phone: Start: 07-30-2024 ambulatory Warren Whitaker ty:[facility] Start: 07-30-2024 Dr. Randal [facility] Start: 07-23-2024 ambulatory Warren Whitaker ty:[facility] Start: 07-23-2024 Dr. Randal Damico MD [facility] Start: 07-20-2024 Dr. Margarette Godinez DO [facility] Work Phone: Start: 07-20-2024 ambulatory [facility] Start: 07-20-2024 Dr. Earl White MD [facility] Start: 07-19-2024 Dr. Margarette Godinez DO [facility] Work Phone: Start: 07-18-2024 ambulatory [facility] Start: 07-18-2024 Dr. Earl White MD [facility] Start: 07-18-2024 Dr. Margarette Godinez DO [facility] Work Phone: Start: 07-17-2024 Dr. Jayla Osuna MD [facility] Work Phone: Start: 07-16-2024 ambulatory Nando Whitaker ty:[facility] Start: 07-16-2024 Dr. Zenaida Cooper MD [facility] Start: 07-15-2024 Dr. Juan Antonio Holden MD [facility] Work Phone: Start: 07-14-2024 Dr. Juan Antonio Holden MD [facility] Work Phone: Start: 07-13-2024 End: 07-20-2024 Evaluation and management of inpatient Jayla Osuna Facility:[facility] Start: 07-13-2024 End: 07-20-2024 Dr. Margarette Godinez DO -[facility] Surgical 3 Work Phone: Start: 07-13-2024 ambulatory Jayla Osuna [facility] Start: 07-13-2024 End: 07-13-2024 ambulatory Meredith Guevara MANAGER MASSAGE DEPARTMENT Facility:[facility] Start: 07-13-2024 End: 07-13-2024 Meredith Paola MANAGER MASSAGE DEPARTMENT- -[facility] Work Phone: Start: 07-11-2024 End: 07-12-2024 Patient encounter procedure Pérez Walker MA [facility] Comment on above: Population Health Na vigation Outreach [facility] Start: 07-11-2024 End: 07-20-2024 ambulatory Pérez Walker MA [facility] Start: 07-11-2024 End: 07-20-2024 Dr. Randal Damico MD [facility] Work Phone: Start: 07-10-2024 End: 07-10-2024 ambulatory Meredith Paola MANAGER MASSAGE DEPARTMENT Facility:[facility] Start: 07-10-2024 End: 07-10-2024 Meredith Guevara MANAGER MASSAGE DEPARTMENT- -[facility] Work Phone: Start: 07-09-2024 End: 07-10-2024 Refill [facility] Comment on above: Refill Request Start: 07-09-2024 Nando Wiggins MD -[facility] Start: 07-07-2024 End: 07-07-2024 Dr. Alicia Loo DO -Emergency Departmen t Work Phone: Start: 07-07-2024 End: 07-07-2024 Emergency department patient visit [facility] Facility:[facility] Start: 07-03-2024 End: 07-03-2024 Dr. Eric Franklin MD -Emergency Departmen t Work Phone: Start: 07-03-2024 End: 07-03-2024 Emergency department patient visit [facility] Facility:[facility] Start: 07-02-2024 Dr. Fernando stein DO -[place] [facility] Work Phone: Start: 07-02-2024 End: 07-02-2024 ambulatory Manuel Alva Facility:[facility] Start: 07-02-2024 End: 07-02-2024 Dr. Fernando Oliveros DO -Progressive Care Unit Work Phone: Start: 06-25-2024 ambulatory Nando SHERWOOD Fa cility:[facility] Start: 06-25-2024 Nando Bravo Start: 06-20-2024 End: 06-20-2024 Salma MINER -[facility] Work Phone: Start: 06-20-2024 End: 06-20-2024 ambulatory Nando Wiggins Facility:[facility] Start: 06-19-2024 End: 06-22-2024 ambulatory Des Ruelas Facility:[facility] Start: 06-19-2024 End: 06-22-2024 Dr. Des Ruelas [facility] Work Phone: Start: 06-18-2024 ambulatory Deblilian SHERWOOD Fa cility:[facility] Start: 06-18-2024 Nando Bravo Start: 06-11-2024 End: 06-11-2024 Patient encounter procedure Danilo Butterfield MA [facility] Comment on above: Population Health Na vigation Outreach ([facility]) Start: 06-11-2024 End: 06-11-2024 ambulatory [facility]ilo [facility] Start: 06-11-2024 Nando Bravo Start: 06-08-2024 ambulatory Nando Rosalie SHERWOOD Fa cility:[facility] Start: 06-08-2024 Nando Bravo Start: 06-06-2024 End: 06-06-2024 ambulatory Meredith Guevara NP Facility:[facility] Start: 06-06-2024 End: 06-06-2024 Meredith Guevara MANAGER MASSAGE DEPARTMENT- -[facility] Work Phone: Start: 06-06-2024 End: 06-06-2024 ambulatory Des Ruelas Facility:[facility] Start: 06-06-2024 End: 06-06-2024 Dr. Des Ruelas DPM -[facility] Start: 06-06-2024 End: 06-06-2024 ambulatory Nando SHERWOOD Facility:[facility] Start: 06-04-2024 End: 06-04-2024 ambulatory Meredith Guevara NP Facility:[facility] Start: 05-30-2024 End: 06-05-2024 Telephone encounter Husam Yan MD Work Phone: [facility] Comment on above: Patient Update; Fill out Surgical Release Forms Start: 05-28-2024 ambulatory Brianwolf SHERWOOD Fa cility:[facility] Start: 05-22-2024 ambulatory Earlyehuda White Facility:[facility] Start: 05-22-2024 End: 05-22-2024 ambulatory Earl Christopher Facility:[facility] Start: 05-21-2024 ambulatory Nando Brownenereida SHERWOOD Fa cility:[facility] Start: 05-17-2024 ambulatory Warren Crespoall Facili ty:[facility] Start: 05-17-2024 End: 05-22-2024 ambulatory Warren Mendoza Facility:[facility] Start: 05-15-2024 End: 05-15-2024 ambulatory Nando Brownenereida Facility:[facility] Start: 05-11-2024 End: 05-11-2024 ambulatory Jean Yan Facility:[facility] Start: 05-04-2024 ambulatory Deni Shields Fac ility:[facility] Start: 05-04-2024 End: 05-10-2024 ambulatory Earl White Facility:[facility] Start: 05-04-2024 End: 05-10-2024 Evaluation and management of inpatient Deni Shields Facility:[facility] Start: 05-02-2024 ambulatory Yunior SHERWOOD Facil ity:[facility] Start: 04-23-2024 End: 04-23-2024 ambulatory [facility] Start: 04-23-2024 End: 04-23-2024 Patient encounter procedure [facility] Comment on above: Population Health Na vigation Outreach ([facility] ) Start: 04-16-2024 ambulatory Jayla Osuna Facility:[facility] Start: 04-16-2024 End: 04-16-2024 ambulatory Jeaninder Yan Facility:[facility] Start: 04-14-2024 End: 04-24-2024 Evaluation and management of inpatient Warren Mendoza Facility:[facility] Start: 04-14-2024 ambulatory Warren Mendoza Koffii ty:[facility] Start: 04-14-2024 End: 04-14-2024 ambulatory REEMAPATY YNA Facility:[facility] Start: 04-14-2024 End: 04-14-2024 Patient encounter procedure Yolanda Jain HVAC ENGINEER.LUZ Work Phone: [facility] Comment on above: Right foot infection (Primary Dx) Start: 04-13-2024 End: 04-17-2024 Telephone encounter Lauren Arzola APRN.CNP Work Phone: [facility] [place] Comment on above: blood sugar reading average Start: 04-05-2024 End: 04-06-2024 Telephone encounter Lauren Arzola APRN.LUZ Work Phone: [facility] [place] Comment on above: blood sugar average Start: 03-28-2024 End: 03-28-2024 Patient encounter procedure Lauren Arzola APRN.PRINTING GRAY CLOTH TENDER Work Phone: 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 [place] Comment on above: Refill Request (See Rx notes) Start: 09-08-2023 End: 09-08-2023 ambulatory JEAN PIERRE ARREAGA MD Facility:[facility] Start: 09-08-2023 End: 09-08-2023 SAME DAY STAY JEAN PIERRE ARREAGA MD [facility] Start: 09-06-2023 Telephone encounter Jean Yan MD Work Phone: [facility] Comment on above: Medication Request Start: 08-08-2023 Telephone encounter Jean Yan MD Work Phone: [facility] Comment on above: Medication Problem ( Freestyle gelacio 14 day sensor kit - patient's sensor reader is a gelacio 2 and the sensors ordered by our office are incompatible with his reader ) Start: 07-28-2023 Refill Husam Yan MD Work Phone: 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 [place] [place] Comment on above: Medication Problem Start: 02-23-2023 Telephone encounter Jean Yan MD Work Phone: [facility] [place] Comment on above: Insurance Authorizat ion Start: 01-04-2023 Refill Husam Yan MD Work Phone: [facility] [place] Start: 12-06-2022 End: 12-06-2022 Patient encounter procedure Lauren Arzola APRN.PRINTING GRAY CLOTH TENDER Work Phone: [facility] [place] Comment on above: Type 2 diabetes [...] 11-15-2022 Refill Husam Yan MD Work Phone: [facility] Comment on above: Refill Request Start: 11-04-2022 Refill Husam Yan MD Work Phone: [facility] Comment on above: Refill Request Start: 10-27-2022 Refill Husam Yan MD Work Phone: [facility] Comment on above: Refill Request Start: 09-06-2022 End: 09-06-2022 Patient encounter procedure Lauren Arzola APRN.PRINTING GRAY CLOTH TENDER Work Phone: 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, without long-term current use of insulin (HCC) (Primary Dx); 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); Chronic diastolic heart failure (HCC) Start: 08-19-2022 Refill Husam Yan MD Work Phone: [facility] Comment on above: Refill Request Start: 06-08-2022 Telephone encounter Jean Yan MD Work Phone: [facility] Comment on above: Results Start: 06-07-2022 End: 06-07-2022 Patient encounter procedure Husam Yan MD Work Phone: [facility] Comment on above: Type 2 diabetes [...] Telephone encounter Jean Yan MD Work Phone: [facility] Comment on above: Results Start: 03-05-2022 End: 03-05-2022 Patient encounter procedure Husam Yan MD Work Phone: [facility] Comment on above: 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, without long-term current use of insulin (HCC) (Primary Dx); Essential hypertension; Mixed hyperlipidemia; ESRD (end stage renal disease) on dialysis ([facility]); Need for COVID-19 vaccine Start: 02-03-2022 Telephone encounter Jean Yan MD Work Phone: [facility] Comment on above: Insurance Authorizat ion (Information on Glargine) Start: 02-02-2022 Refill Husam Yan MD Work Phone: [facility] Comment on above: Refill Request Start: 01-26-2022 Refill Husam Yan MD Work Phone: [facility] Comment on above: Refill Request Start: 12-14-2021 Refill Husam Yan MD Work Phone: [facility] Comment on above: Refill Request Start: 11-06-2021 Non-patient / Non-visit Dr. Mike Yan Work Phone: [facility] Start: 11-06-2021 End: 11-06-2021 Admission to same day surgery center Dr. Jean Yan Work Phone: [facility]Cover Stri[facility]/Special Procedures Start: 10-21-2021 End: 10-21-[address] 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 Yasir Yan Work Phone: [facility] Procedures Date Procedure Procedure Detail Performing Clinician Start: 10-16-2024 Blood count smear rscp w/mnl difrntl wbc count Dr. Jean [...] Yan MD Work Phone: Start: 08-29-2024 Dr. Reema Yan MD Work Phone: Start: 08-27-2024 Blood [...] 07-23-2024 Platelet mean volume determination Dr. Jean Yan MD Work Phone: Start: 07-20-2024 Blood count [...] Phone: Start: 07-13-[address] Jena Yan MD Work Phone: Start: 07-13-[address] Gil Yan MD Work Phone: Start: 07-13-2024 Gram stain microscopy Boo Yan MD Work Phone: Start: 07-13-2024 Identification proce elizabeth for living organism Dr. Jean Yan MD Work Phone: Start: 07-13-2024 Microbial culture, routine Dr. Jean Yan MD Work Phone: Start: 07-13-2024 Dr. Reema Yan MD Work Phone: Start: 07-09-2024 Anion [...] Work Phone: Start: 07-07-2024 Anion gap measurement D aleshia Yan MD Work Phone: Start: 07-07-2024 Blood [...] Yan MD Work Phone: Start: 07-07-2024 Dr. Reema Yan MD Work Phone: Start: 07-03-2024 Albumin/Globulin [...] Work Phone: Start: 06-11-2024 Anion gap measurement oBo Yan MD Work Phone: Start: 06-11-2024 Blood [...] 12-06-2022 Hemoglobin A1c/Hemoglobin.total in Blood Lauren Podlogar HVAC ENGINEER.PRINTING GRAY CLOTH TENDER Work Phone: Start: 09-06-2022 Hemoglobin A1c/Hemoglobin.total in Blood Lauren Podlogar HVAC ENGINEER.PRINTING GRAY CLOTH TENDER Work Phone: Start: 03-05-2022 PFIZER-BIONTGuarnic COVI D-19 BIVALENT BOOSTER VACCINE, AGE 12+ [...] months Breanne Robbins Start: 10-27-2016 End: 10-27-2016 MMM Laron Bacon MD Arteriovenous fistul a (morphologic abnormality) [...] Detail Author Start: 04-26-2028 Urine microalbumin profile [facility] Start: 09-04-2024 Patient discharge [facility] Start: 09-04-2024 End: 09-04-2024 [facility] Start: 09-04-2024 Hemodialysis care [facility] Start: 09-03-2024 Application of intermittent pneumatic compression device [facility] Start: 09-03-2024 Wound care [facility] Start: 09-03-2024 [facility] Start: 09-01-2024 End: 09-01-2024 [facility] Start: 09-01-2024 Hemodialysis care [facility] Start: 09-01-2024 Inhalation therapy procedure [facility] Start: 08-30-2024 Following clinical pathway protocol [facility] Start: 08-30-2024 [facility] Start: 08-30-2024 End: 08-30-2024 [facility] Start: 08-30-2024 Hemodialysis care [facility] Start: 08-30-2024 Referral to horse trekking guide [facility] Start: 08-29-2024 Following clinical pathway protocol [facility] Start: 08-29-2024 Assessment of risk of venous thromboembolism [facility] Start: 08-29-[address] [facility] Start: 08-29-2024 Insertion of catheter into peripheral vein [facility] Start: 08-29-2024 Notification of physician [facility] Start: 08-29-2024 Providing care according to standard [facility] Start: 08-29-2024 Referral to occupational therapist [facility] Start: 08-29-2024 Referral to service [facility] Start: 08-29-2024 End: 08-29-2024 [facility] Start: 08-29-2024 Admission procedure [facility] Start: 08-01-2024 [facility] Start: 07-20-2024 Patient discharge [facility] Start: 07-19-2024 End: 07-19-2024 [facility] Start: 07-19-2024 Hemodialysis care [facility] Start: 07-17-2024 End: 07-17-2024 [facility] Start: 07-17-2024 Hemodialysis care [facility] Start: 07-17-2024 Wound care [facility] Start: 07-16-2024 Following clinical pathway protocol [facility] Start: 07-16-2024 Inhalation therapy procedure [facility] Start: 07-14-2024 [facility] Start: 07-14-2024 Consultation [facility] Start: 07-14-2024 End: 07-14-2024 [facility] Start: 07-14-2024 Hemodialysis care [facility] Start: 07-13-2024 Application of intermittent pneumatic compression device [facility] Start: 07-13-2024 Assessment of risk of venous thromboembolism [facility] Start: 07-13-[address] [facility] Start: 07-13-2024 Consultation for treatment [facility] Start: 07-13-2024 Insertion of catheter into peripheral vein [facility] Start: 07-13-2024 Measuring intake and output [facility] Start: 07-13-2024 Notification of physician [facility] Start: 07-13-2024 Providing care according to standard [facility] Start: 07-13-2024 Provision of activity privileges [facility] Start: 07-13-2024 Referral to horse trekking guide [facility] Start: 07-13-2024 Referral to occupational therapist [facility] Start: 07-13-2024 Referral to supervisor lace tearing [facility] Start: 07-13-2024 Referral to service [facility] Start: 07-13-2024 End: 07-13-2024 [facility] Start: 07-13-2024 Admission procedure [facility] Start: 07-09-2024 End: 07-09-2024 Patient encounter procedure 07/09/2024 9:40 AM EST Office [facility] [place] [address] [place] [address] Husam Yan MD [address] [place] [address] 6 month follow up [facility] [place] Comment on above: 6 month follow up Start: 07-07-2024 [facility] Start: 07-03-2024 [facility] Start: 07-02-2024 Patient discharge [facility] Start: 07-02-2024 End: 07-02-2024 [facility] Start: 07-02-2024 Hemodialysis care [facility] Start: 07-02-2024 Assessment of risk of venous thromboembolism [facility] Start: 07-02-[address] [facility] Start: 07-02-2024 Insertion of catheter into peripheral vein [facility] Start: 07-02-2024 Measuring intake and output [facility] Start: 07-02-2024 Providing care according to standard [facility] Start: 07-02-2024 Referral to horse trekking guide [facility] Start: 07-02-2024 Admission procedure [facility] Start: 06-28-2024 Hemoglobin A1c measurement HbA1C [facility] Start: 06-06-2024 Adjt tis trns/reargmt f/c/c/m/n/a/g/h/f 10sqcm/< [facility] Start: 06-06-2024 Amputation foot transmetarsal [facility] Start: 06-06-2024 Anes open proc bones lower leg/ankle/foot nos [facility] Start: 06-06-[address] [facility] Start: 06-06-2024 Neurovascular assessment [facility] Start: 06-06-2024 Patient discharge [facility] Start: 06-06-2024 Procedure discontinued [facility] Start: 06-06-2024 Vital signs measurements [facility] Start: 06-06-2024 [facility] Start: 05-25-2024 Hepatitis B surface antibody level LDL Cholesterol [facility] Start: 05-23-2024 Advance Directive Discussion Advance Directive Discussion [facility] Start: 04-27-2024 Glaucoma screening Dilated Retinal Exam [facility] Start: 02-22-2024 3 comp foot exam completed Diabetic Foot Exam [facility] Start: 02-22-2024 Diabetic foot examination Diabetic Foot Exam [facility] Start: 02-10-2024 End: 02-10-2024 Patient encounter procedure 02/10/2024 11:30 AM EDT Office Visit Podiatry [address] [place] [address] Danilo Martines [address] [place] [address] 3 month follow up nail care Podiatry Comment on above: 3 month follow up nail care Start: 01-22-2024 Covid-19 Vaccine ( season) Covid-19 Vaccine ( season) [facility] Start: 01-22-2024 Covid-19 Vaccine ( season) Covid-19 Vaccine ( season) [facility] Start: 01-22-2024 Influenza vaccination Influenza Vaccine (#1) [facility] Start: 01-06-2024 End: 04-06-2024 Comprehensive metabolic 2000 panel - Serum or Plasma COMPREHENSIVE METABOLIC PANEL Lab Routine 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 edema, with long-term current use of insulin (HCC) Expected: 01/06/2024, Expires: 04/06/2024 [facility] Work Phone: Comment on above: Expected: 01/06/2024, Expires: 4 Start: 01-06-2024 End: 04-06-2024 Hemoglobin A1c in Blood HEMOGLOBIN A1C Lab Routine 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 edema, with long-term current use of insulin (HCC) Expected: 01/06/2024, Expires: 04/06/2024 [facility] Comment on above: Expected: 01/06/2024, Expires: 4 Start: 11-04-2023 End: 11-04-2023 Patient encounter procedure Podiatry Comment on above: 3 month follow up nail care 4 month follow up Start: 08-24-2023 Hemoglobin A1c measurement HbA1C [facility] Start: 07-06-2023 Hepatitis B Vaccine (9 of 9 - Risk Dialysis Recombivax 3-dose series) Hepatitis B Vaccine (9 of 9 - Risk Dialysis Recombivax 3-dose series) [facility] Start: 06-24-2023 Covid-19 Vaccine (4 - Additional dose for Len series) Covid-19 Vaccine (4 - Additional dose for Len series) [facility] Start: 06-24-2023 Covid-19 Vaccine (2022- season) Covid-19 Vaccine ( season) [facility] Start: 06-07-2023 SHINGRIX VACCINE (1 of 2) SHINGRIX VACCINE (1 of 2) [facility] Comment on above: Postponed from 1956 (Declined at t his time) Postponed from 04/30 (Declined at this time) Start: 05-23-2023 Advance Directive Discussion Advance Directive Discussion [facility] Start: 05-23-2023 Behavioral Health Screening Behavioral Health Screening [facility] Start: 03-08-2023 Hemoglobin A1c/Hemoglobin.total in Blood HBA1C [facility] Start: 03-05-2023 Hepatitis B surface antibody level LDL CHOLESTEROL [facility] Start: 03-04-2023 Hepatitis B Vaccine (6 of 6 - Risk Dialysis Recombivax 3-dose series) Hepatitis B Vaccine (6 of 6 - Risk Dialysis Recombivax 3-dose series) [facility] Start: 02-08-2023 Hepatitis C antibody, confirmatory test DILATED RETINAL EXAM [facility] Start: 01-21-2023 Influenza vaccination INFLUENZA (#1) [facility] Start: 12-06-2022 Hemoglobin A1c/Hemoglobin.total in Blood HBA1C [facility] Start: 09-06-2022 End: 11-06-2022 Hemoglobin A1c in Blood HGB A1C Lab Routine 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, without long-term current use of insulin (HCC) Expected: 09/06/2022, Expires: 11/06/2022 [facility] Work Phone: Comment on above: Expected: 09/06/2022, Expires: 3 Start: 09-05-2022 Hemoglobin A1c/Hemoglobin.total in Blood HBA1C [facility] Start: 09-02-2022 3 comp foot exam completed DIABETIC FOOT EXAM [facility] Start: 07-06-2022 COVID-19 VACCINE (4 - Additional dose for Len series) COVID-19 VACCINE (4 - Additional dose for Len series) [facility] Start: 06-07-2022 End: 08-07-2022 Comprehensive metabolic 2000 panel - Serum or Plasma [facility] Work Phone: Comment on above: Expected: 06/07/2022, Expires: 3 Start: 06-07-2022 End: 08-07-2022 Hemoglobin A1c in Blood [facility] Work Phone: Comment on above: Expected: 06/07/2022, Expires: 3 Start: 06-05-2022 Hemoglobin A1c/Hemoglobin.total in Blood HBA1C [facility] Start: 05-23-2022 ADVANCE DIRECTIVE DISCUSSION ADVANCE DIRECTIVE DISCUSSION [facility] Start: 02-25-2022 Hepatitis B surface antibody level LDL CHOLESTEROL [facility] Start: 01-21-2022 Influenza vaccination INFLUENZA (#1) [facility] Start: 12-05-2021 Hepatitis C antibody, confirmatory test DILATED RETINAL EXAM [facility] Start: 12-02-2021 Hemoglobin A1c/Hemoglobin.total in Blood HBA1C [facility] Start: 07-24-2021 COVID-19 VACCINE (3 - Booster for Len series) COVID-19 VACCINE (3 - Booster for Len series) [facility] Start: 05-23-2021 ADVANCE DIRECTIVE DISCUSSION ADVANCE DIRECTIVE DISCUSSION [facility] Start: 05-23-2021 DEPRESSION ASSESSMENT DEPRESSION ASSESSMENT [facility] Start: 05-21-2021 COVID-19 VACCINE (3 - Booster for Len series) COVID-19 VACCINE (3 - Booster for Len series) [facility] Start: 05-12-2017 End: 05-12-2017 Appointment Appointment [facility] Work Phone: Start: 10-27-2016 End: 10-27-2016 Appointment Appointment [facility] Work Phone: Start: 10-27-2016 End: 10-27-2016 Echocardiography Echocardiogram (complete) [facility] Work Phone: Start: 10-27-2016 End: 10-27-2016 Electrocardiogram, complete EKG (In office) [facility] Work Phone: Start: 10-27-2016 End: 10-27-2016 Follow Up Appt 6 months Follow Up Appt 6 months [facility] Work Phone: Start: 10-27-2016 End: 10-27-2016 MMM MMM [facility] Work Phone: Start: 10-27-2016 End: 10-27-2016 Nuclear stress test -Lexiscan Nuclear stress test -Lexiscan [facility] Work Phone: Start: 2012 RSV Vaccine (1 - 1-dose 75+ series) RSV Vaccine (1 - 1-dose 75+ series) [facility] Start: 1997 RSV Vaccine (1 - 1-dose 60+ series) RSV Vaccine (1 - 1-dose 60+ series) [facility] Start: 1987 SHINGRIX VACCINE (1 of 2) SHINGRIX VACCINE (1 of 2) [facility] Start: 1956 SHINGRIX VACCINE (1 of 2) SHINGRIX VACCINE (1 of 2) [facility] Start: 1955 Anxiety Screening Anxiety Screening [facility] Start: 1955 Depression Screening Depression Screening [facility] Patient Education [facility] Work Phone: Patient referral [facility] Work Phone: Referral for further care [facility] Immunizations Immunization Date Immunization Notes Care Provider [facility] 03-15-2024 influenza, injectabl e, quadrivalent, preservative free Dr. Jean Yan MD Work Phone: [facility] 02-21-2023 COVID-19 vaccine, ag e 12+ yr, season (PFIZER-BIONTECH) Husam Yan MD Work Phone: [facility] 02-21-2023 influenza (HD-IIV4) vaccine, age 65+ yr, high dose, quadrivalent, PF (FLUZONE HIGH-DOSE) Husam Yan MD Work Phone: [facility] 02-21-2023 influenza virus vaccine, unspecified formulation JEAN PIERRE ARREAGA MD [facility] 02-21-2023 SARS-CoV-2 (COVID-19 ) mRNAMUL.ORD![id number] JEAN PIERRE ARREAGA MD [facility] Comment on above: Result Comment: 2023: [id number] 03-05-2022 COVID-19 booster vaccine, age 12+ yr, bivalent (PFIZER-BIONTECH) Husam Yan MD Work Phone: [facility] 03-04-2022 Hepatitis B vaccine (recombinant), CpG adjuvanted Husam Yan MD Work Phone: [facility] Work Phone: 02-25-2022 influenza, high-dose , quadrivalent vaccine (FLUZONE HIGH DOSE QUADRIVALENT) Husam Yan MD Work Phone: [facility] Work Phone: 03-26-2021 SARS-CoV-2 (COVID-19 ) mRNA-1273 vaccine BAHAEDDIN EL GIBSON MD [facility] 02-17-2021 influenza, high-dose , quadrivalent vaccine (FLUZONE HIGH DOSE QUADRIVALENT) Husam Yan MD Work Phone: [facility] 12-30-2020 Hepatitis B vaccine (recombinant), CpG adjuvanted Husam Yan MD Work Phone: [facility] 10-02-2020 Hepatitis B vaccine (recombinant), CpG adjuvanted Husam Yan MD Work Phone: [facility] 07-31-2020 COVID-19 vaccine (LEN) Husam Yan MD Work Phone: [facility] Comment on above: Result Comment: 2023: [id number] 07-01-2020 hepatitis B vaccine, adult dosage Husam Yan MD Work Phone: [facility] 06-03-2020 hepatitis B vaccine, adult dosage Husam Yan MD Work Phone: [facility] 04-19-2020 influenza virus vaccine, unspecified formulation JEAN PIERRE ARREAGA MD [facility] 04-19-2020 influenza, injectabl e, quadrivalent, preservative free Dr. Jean Yan MD Work Phone: [facility] 04-19-2020 influenza, seasonal, injectable Dr. Jean Yan Work Phone: [facility] Work Phone: 04-19-2020 influenza, seasonal, injectable, preservative free Husam Yan MD Work Phone: [facility] Work Phone: 02-28-2019 influenza virus vaccine, unspecified formulation JEAN PIERRE ARREAGA MD [facility] 02-28-2019 influenza, high dose seasonal, preservative-free Husam Yan MD Work Phone: [facility] 06-12-2014 pneumococcal conjuga te vaccine, 13 valent Husam Yan MD Work Phone: [facility] 02-20-2011 influenza virus vaccine, unspecified formulation Husam Yan MD Work Phone: [facility] Work Phone: 02-14-2009 influenza virus vaccine, unspecified formulation Husam Yan MD Work Phone: [facility] Work Phone: 11-01-2007 diphtheria and tetan us toxoids, adsorbed for pediatric use Husam Yan MD Work Phone: [facility] Work Phone: 05-08-2007 influenza virus vaccine, unspecified formulation Husam Yan MD Work Phone: [facility] Work Phone: 03-28-2006 influenza virus vaccine, unspecified formulation Husam Yan MD Work Phone: [facility] 03-04-2006 pneumococcal polysaccharide vaccine, 23 valent Husam Yan MD Work Phone: [facility] Work Phone: Payers Date Payer Category Payer Self-pay [id number] 01-21-2021 Medicare HUMANA MEDICARE HUMANA MEDICARE PPO [id number] 01/21/2021-Present [id number] [place] [address] PPO [id number] 05-23-2017 Medicare [id number]. [id number] 05-23-2017 Medicare (Managed Care) DODIE MOISES [id number] 05-23-2012 Medicare [id number] 1935 Unknown [id number] 2.0.1.211749.3.579. 2.627 Unknown SELF PAY INSURANCE [id number] Unknown [id number] 2.840.1.706015.3.579. 2.462 Unknown [id number] 2.0.1.549241.3.579. 2.462 Unknown [id number] 2.840.1.830986.3.579. 2.462 Unknown [id number] 2.840.1.620046.3.579. 2.462 Unknown [id number] 2.840.1.710026.3.579. 2.462 Unknown [id number] 2.840.1.967916.3.579. 2.462 Unknown [id number] 2.0.1.579214.3.579. 2.462 Unknown [id number] 2.840.1.229809.3.579. 2.462 Unknown [id number] 2.840.1.352670.3.579. 2.462 Unknown [id number] 2.840.1.140545.3.579. 2.462 Unknown [id number] 2.840.1.979372.3.579. 2.462 Unknown [id number] 2.840.1.460295.3.579. 2.462 Unknown [id number] 2.16.840.1.993214.3.579. 2.462 Unknown [id number] 2.16.840.1.991442.3.579. 2.462 Unknown [id number] 2.16.840.1.323495.3.579. 2.462 Unknown [id number] 2.16.840.1.171351.3.579. 2.462 Unknown [id number] 2.16.840.1.966865.3.579. 2.462 Unknown [id number] 2.16.840.1.942131.3.579. 2.462 Unknown [id number] 2.16.840.1.238099.3.579. 2.462 Unknown [id number] 2.16.840.1.628967.3.579. 2.462 Unknown [id number] 2.16.840.1.443982.3.579. 2.462 Unknown [id number] 2.16.840.1.478383.3.579. 2.462 Unknown [id number] 2.16.840.1.497442.3.579. 2.462 Unknown [id number] 2.16.840.1.334606.3.579. 2.462 Unknown [id number] 2.16.840.1.105734.3.579. 2.462 Unknown [id number] 2.16.840.1.088768.3.579. 2.462 Unknown [id number] 2.16.840.1.674699.3.579. 2.462 Unknown [id number] 2.16.840.1.414207.3.579. 2.462 Unknown [id number] 2.16.840.1.122484.3.579. 2.462 Unknown [id number] 2.16.840.1.527358.3.579. 2.462 Unknown 24746527 2.16.840.1.238487.3.579. 2.462 Unknown [id number] 2.16.840.1.935476.3.579. 2.462 Unknown [id number] 2.16840.1.586396.3.579. 2.462 Unknown [id number] 2.16.840.1.761111.3.579. 2.462 Unknown [id number] 2.840.1.529425.3.579. 2.462 Unknown [id number] 2.16840.1.507505.3.579. 2.462 Unknown [id number] 2.840.1.389496.3.579. 2.462 Unknown [id number] 2.840.1.722656.3.579. 2.462 Unknown [id number] 2.840.1.467104.3.579. 2.462 Unknown [id number] 2.840.1.915868.3.579. 2.462 Unknown 42017585 2.840.1.052295.3.579. 2.462 Unknown 03124137 2.840.1.998199.3.579. 2.462 Unknown [id number] 2.840.1.451154.3.579. 2.462 Unknown 60767154 2.840.1.273292.3.579. 2.462 Unknown 51362115 2.840.1.122591.3.579. 2.462 Unknown [id number] 2.840.1.018450.3.579. 2.462 Unknown [id number] 2.840.1.258944.3.579. 2.462 Unknown [id number] 2.840.1.312526.3.579. 2.462 Unknown [id number] 2.840.1.163372.3.579. 2.462 Unknown [id number] 2.16.840.1.628239.3.579. 2.462 Unknown [id number] 2.16.840.1.543158.3.579. 2.462 Unknown [id number] 2.16.840.1.234117.3.579. 2.462 Unknown [id number] 2.16.840.1.532376.3.579. 2.462 Unknown 55631266 2.16.840.1.181152.3.579. 2.462 Unknown [id number] 2.16.840.1.488282.3.579. 2.462 Unknown 01774259 2.16.840.1.339453.3.579. 2.462 Unknown 92269960 2.16.840.1.206990.3.579. 2.462 Unknown [id number] 2.16.840.1.806539.3.579. 2.462 Unknown 84726291 2.16.840.1.231336.3.579. 2.462 Unknown [id number] 2.16.840.1.336817.3.579. 2.462 Unknown 87449180 2.16.840.1.791223.3.579. 2.462 Unknown 40176708 2.16.840.1.116541.3.579. 2.462 Unknown 55274445 2.16.840.1.107100.3.579. 2.462 Unknown [id number] 2.16.840.1.112341.3.579. 2.462 Unknown [id number] 2.16.840.1.389443.3.579. 2.462 Unknown [id number] 2.16.840.1.388336.3.579. 2.462 Unknown [id number] 2.16.840.1.897246.3.579. 2.462 Unknown [id number] 2.16.840.1.837417.3.579. 2.462 Unknown [id number] 2.16.840.1.189650.3.579. 2.462 Unknown [id number] 2.16.840.1.914387.3.579. 2.462 Unknown [id number] 2.16.840.1.740363.3.579. 2.462 Unknown 33362485 2.16.840.1.285376.3.579. 2.462 Unknown 29629236 2.16.840.1.591488.3.579. 2.462 Unknown 60120823 2.16.840.1.128454.3.579. 2.462 Unknown 66285272 2.16.840.1.669387.3.579. 2.462 Unknown [id number] 2.16.840.1.247340.3.579. 2.462 Unknown 27830536 2.16.840.1.710996.3.579. 2.462 Unknown 12137220 2.16.840.1.769603.3.579. 2.462 Unknown [id number] 2.16.840.1.004273.3.579. 2.462 Unknown 56609897 2.16.840.1.636661.3.579. 2.462 Unknown 47314292 2.16.840.1.156475.3.579. 2.462 Unknown 60961077 2.16.840.1.315545.3.579. 2.462 Unknown 50407648 2.16.840.1.927501.3.579. 2.462 Unknown 10093752 2.16.840.1.539884.3.579. 2.462 Unknown 09623413 2.16.840.1.753433.3.579. 2.462 Unknown 08070146 2.16.840.1.000080.3.579. 2.462 Unknown 73269508 2.16.840.1.446593.3.579. 2.462 Unknown 05571620 2.16.840.1.020845.3.579. 2.462 Unknown 27503096 2.16.840.1.033520.3.579. 2.462 Unknown 59992521 2.16.840.1.762141.3.579. 2.462 Unknown 17322328 2.16840.1.034390.3.579. 2.462 Unknown 04304687 2.16840.1.419793.3.579. 2.462 Unknown 54371049 2.840.1.495210.3.579. 2.462 Unknown 22997098 2.840.1.434289.3.579. 2.462 Unknown 44487202 2.840.1.478618.3.579. 2.462 Unknown 11857959 2.840.1.087749.3.579. 2.462 Unknown 68963158 2.840.1.103370.3.579. 2.462 Unknown 51837111 2.840.1.342549.3.579. 2.462 Unknown 90176843 2.16840.1.345235.3.579. 2.462 Unknown 96232181 2.840.1.773915.3.579. 2.462 Unknown 83014035 2.16840.1.398433.3.579. 2.462 Unknown 52491895 2.16.840.1.390683.3.579. 2.462 Unknown 12908804 2.16840.1.748796.3.579. 2.462 Unknown 55385614 2.16.840.1.256142.3.579. 2.462 Unknown 99616360 2.16840.1.891030.3.579. 2.462 Unknown 55065411 2.16.840.1.781674.3.579. 2.462 Unknown 02277401 2.16.840.1.692513.3.579. 2.462 Unknown 46880876 2.16.840.1.609402.3.579. 2.462 Unknown 08489979 2.16.840.1.201351.3.579. 2.462 Unknown 68730709 2.16.840.1.775921.3.579. 2.462 Unknown [id number] 2.16.840.1.272538.3.579. 2.462 Unknown [id number] 2.16.840.1.865761.3.579. 2.462 Unknown [id number] 2.16.840.1.284007.3.579. 2.462 Unknown [id number] 2.16.840.1.747293.3.579. 2.462 Unknown [id number] 2.16.840.1.978791.3.579. 2.462 Social History Date Type Detail Facility Start: 07-25-2017 End: 03-05-2022 Tobacco smoking status NHIS Ex-smoker [facility] History of tobacco use Cigar Smoker [facility] Start: 07-25-2017 End: 03-05-2022 Tobacco use and exposure Smokeless tobacco non-user [facility] Start: 07-15-2021 End: 04-14-2024 Alcohol intake Current drinker of alcohol (finding) [facility] Start: 07-15-2021 End: 12-06-2022 Alcohol intake [facility] Work Phone: Start: 11-18-2016 History SDOH Alcohol Comment rarely [facility] Start: 04-28-2017 Tobacco Comment Occasionally [facility] Start: 1935 Sex Assigned At Not on file C [facility] Start: 02-02-2021 End: 03-05-2022 Exposure to SARS-CoV-2 (event) Not sure [facility] Start: 11-06-2021 Tobacco smoking stat us NHIS Unknown if ever smoked [facility] Work Phone: Start: 04-18-[address] [facility] Start: 08-28-2020 Spouse/ Signif icant Other [facility] Start: 09-26-2020 Non-smoker [facility] Start: 1935 Sex Assigned At Male A [facility] History of tobacco use Current smoker [facility] Start: 12-06-2022 End: 05-25-2023 Tobacco use panel [facility] Work Phone: Adult Depression Screening Assessment 0 [facility] Work Phone: Start: 08-28-2024 Tobacco smoking stat us NHIS Never smoked tobacco (finding) [facility] Medical Equipment Procedure Code Equipment Code Equipment [...] above or below knee FDA Start: 08-29-2024 [id number], [id number], [id number], [id number], [id number], [id number], [id number], [id number] Start: 09-06-2011 End: 10-27-2022 Comment on above: Test blood sugar(s) 2x daily. Dx E11.65. Insulin: No. Test blood sugar(s) 2x daily. Dx: E11.65. Insulin: No Use one needle for e ach dose. 1x/day. 1 Each once daily. Test blood sugar(s) 2 times daily. Dx: Type 2 DM -E11.65 Insulin: No [id number], [id number], [id number] FDA Start: 04-28-2017 Comment on above: True Metrix Lancets. Test blood sugar(s) 2x daily. Dx: E11.65. Insulin: No True Metrix Test Str ips. Test blood sugar(s) 2x daily. Dx: E11.65. Insulin: No Goals Date Patient Goal Desired Activity /State Functional Status Date Assessment Result Facility 09-04-2024 Functional status Bedrest [facility] Work Phone: 09-03-2024 Functional status Well [facility] Work Phone: 07-20-2024 Functional status Bedrest [facility] Work Phone: 07-02-2024 Functional status Independent [facility] Work Phone: 09-08-2023 Functional Status Other: eye shield [facility] 09-08-2023 Functional Status Maintained [facility] 09-07-2023 Functional Status [facility] 09-26-2014 Are you deaf, or do you have serious difficulty hearing No 09/26/2014 8:15 AM Pooja Goins RN [facility] 09-26-2014 Are you blind, or do you have serious difficulty seeing, even when wearing glasses No 09/26/2014 8:15 AM Pooja Goins RN [facility] 09-26-2014 Do you have serious difficulty walking or climbing stairs No 09/26/2014 8:15 AM Pooja Goins RN [facility] 09-26-2014 Do you have difficul ty dressing or bathing No 09/26/2014 8:15 AM Pooja Goins RN [facility] 09-26-2014 Because of a physica l, mental, or emotional condition, do you have difficulty doing errands alone such as visiting a physician's office or shopping No 09/26/2014 8:15 AM Pooja Goins RN No [facility] Mental Status Date Assessment Result Facility 09-04-2024 Cognitive function Voice/Name [facility] Work Phone: 07-20-2024 Cognitive function Voice/Name [facility] Work Phone: 07-07-2024 Cognitive function Voice/Name [facility] Work Phone: 07-03-2024 Cognitive function Follows Commands;Drows y [facility] Work Phone: 07-02-2024 Cognitive function Appropriate;Cooperativ e [facility] Work Phone: 06-06-2024 Cognitive function Drowsy [facility] Work Phone: 06-06-2024 Cognitive function Voice/Name [facility] Work Phone: 09-08-2023 Mental Status Oriented x [facility] 09-26-2014 Because of a physica l, mental, or emotional condition, do you have serious difficulty concentrating, remembering, or making decisions No 09/26/2014 8:15 AM Pooja Goins, RN No [facility] Clinical Notes 12-19-2015 to 09-24-2024 Note Date & Type Note Facility 09-24-2024 Progress note Note Date/Time September 24, 2024 11:03a [facility] Medical Records Department [address] [place] [address] Progress Note - Surgery 09/24/24 1101 MR#: [id number] Acct: [id number] Name: PERLA THOMPSON Rep #:[id number] : 1935 89 From: Randal Damico MD PCP: Dr. Nando Wiggins MD Status:R EG RCR Location: WC Subjective Subjective Doing well. Here with son [...] encounter PLAN: Continue ABD for padding Continue Residential Manager splint for knee extension and plan for stump forming with [place] eventual prosthesis at likely 3 months Plan from vascular is to follow-up in 2 weeks for staple removal. Agree with plan. Patient is not having any residual limb pain or phantom limb pain. Follow-up asneeded. Charges/Coding Procedures Integumentary 111xxx-113xx: 59093 Global Visit 09/24/24 1103 <Electronically signed by Randal Damico MD> Cosigner Signature (if applicable): CC: ~ Signed [facility] Work Phone: 1(332) 673-999304-11-2025 [facility]04-09-2025 [facility]02-28-2025 [facility] 07-13-2024 [facility]02-19-2025 NoteHNO ID: [id number] Author: HUSAM YAN MD Service: ? Author Type: Physician Type: Progress Notes Filed: 07/11/2024 14:47 Note Text: I am sorry to hear this. Thank you for the update. 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 msg sent to pcp to make him aware that he is in a fdc Reason for Outreach Care Gap/HCC or Scheduling [...] 11, 2024 2:35 PM documented in [facility] NoteHNO ID: [id number] Author: PÉREZ WALKER MA Service: ? Author Type: Production Worker Type: Progress Notes Filed: 07/12/2024 10:30 Note Text: POPULATION HEALTH NAVIGATION OUTREACH Action/FYI spoke to pt's daughter to schedule wellness, follow up, hcc gap closure, diabetic retinal eye exam, ked/ uacr and hgba1c- not pended. 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 msg sent to pcp to make him aware that he is in a fdc Reason for Outreach Care Gap/HCC or Scheduling Wellness Visits Care Gaps due: Medicare Annual Wellness Visit Follow-up Appointment Diabetic Eye Exam HBA1C KED Patient Contacted: Spoke to patient/parent/or legal guardian Patient identified by name and : Yes Care Gap/HCC/Scheduling Wellness actions taken: Patient declined: Sent message to PCP office HCC related Navigation Signature: Pérez Walker MA July 11, 2024 2[facility] NotePatient Outreach (NETNAV) PERLA THOMPSON ([id number]) 1935 M Date Time Provider Department 07/11/24 PÉREZ WALKER During your visit today, we recorded the following information about you: Pérez Walker MA 07/12/2024 10:30 AM Signed POPULATION HEALTH NAVIGATION OUTREACH Action/FYI spoke to pt's daughter to schedule wellness, follow up, hcc gap closure, diabetic retinal eye exam, ked/ uacr and hgba1c- not pended. 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 msg sent to pcp to make him aware that he is in a fdc Reason for Outreach Care Gap/HCC or Scheduling [...] Visit: Population Health Navigation Outreach [3910] Cmt: humana workbench vesna Prescriptions as of 07/12/2024 - insulin glargine [...] once daily. Every other day - Insulin Mackey, Disposable, (BD ULTRA-FINE SHAHEEN PEN NEEDLE) 32 gauge x 5/32 Use one needle for each dose. 1x/day. [...] by mouth once daily. - Blood-Glucose Meter [facility] Dispense 1 kit. 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 Secondary hyperparathyroidism of renal origin (*02/21/2023 Encounter Status:Closed by PÉREZ WALKER on 07/12/24[facility] 07-09-2024 Telephone encounter Note* Telephone Encounter - [...] RAY Roach July 09, 2024 11:51 AM [facility]02-17-2025 Miscellaneous Notes* Telephone Encounter - Radha Howe [...] 09, 2024 11:51 AM documented in [facility]02-10-2025 Evaluation note* Diagnosis Onset Date Resolution Status Admit Date End stage renal disease acute F ebruary 2024 12:56pm Acute hyperkalemia inactive 2024 12:56pm Other acute osteomyelitis, right ankle and foot acute July 112024 10:30am Other specified peripheral vascular diseases inactive July 11, 2024 10:30am End stage renal disease acute F ebru2024 5:48pm MRSA bacteremia acute July 13, 2024 [...] chronic August 29, 2024 1:06pm 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 August 29, 2024 1:06pm Wound, open, foot inactive August 292024 1:06pm Amputation of right lower extremity below knee acute September 24 9:58am Amputation of right lower extremity below knee acute October 03, 025 8:55am End stage renal disease acute M ay 2024 8:55am Amputation of right lower extremity below knee acute October 17, 025 10:05am AV fistula acute October 17, 2024 10:05am [facility] Work Phone: 1(657) 801-531401-29-2025 Evaluation note* Diagnosis Onset Date Resolution Status [...] chronic August 29, 2024 1:06pm 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 Author Type: Production Worker Type: Progress Notes Filed: 06/11/2024 13:49 Note Text: POPULATION HEALTH NAVIGATION OUTREACH Action/FYI Care gaps due: AWV DIABETIC RETINAL EXAM No answer, lvm. Reason for Outreach Care Gap/HCC or Scheduling Wellness Visits Care Gaps due: Medicare Annual Wellness Visit Diabetic Eye Exam Patient Contacted: Unable or unnecessary to reach patient: Left message [facility] related Navigation Signature: Danilo Butterfield MA June 11, 2024 1:49 [facility]01-20-2025 History of Present illness Narrative* Danilo Butterfield MA - 06/11/2024 1:49 PM EST POPULATION HEALTH NAVIGATION OUTREACH Action/FYI Care gaps due: AWV DIABETIC RETINAL EXAM No answer, lvm. Reason for Outreach Care Gap/HCC or Scheduling Wellness Visits Care Gaps due: Medicare Annual Wellness Visit Diabetic Eye Exam Patient Contacted: Unable or unnecessary to reach patient: Left message [facility] related Navigation Signature: Danilo Butterfield MA June 11, 2024 1:49 PM documented in [facility] NotePatient Outreach (NETNAV) PERLA THOMPSON ([id number]) 1935 M Date Time Provider Department 06/11/24 DANILO BUTTERFIELD During your visit today, we recorded the following information about you: Danilo Butterfield MA 06/11/2024 1:49 PM Signed POPULATION HEALTH NAVIGATION OUTREACH Action/FYI Care gaps due: AWV DIABETIC RETINAL EXAM No answer, lvm. Reason for Outreach Care Gap/HCC or Scheduling Wellness Visits Care Gaps due: Medicare Annual Wellness Visit Diabetic Eye Exam Patient Contacted: Unable or unnecessary to reach patient: Left message [facility] related Navigation Signature: Danilo Butterfield MA June [...] Visit: Population Health Navigation Outreach [3910] Cmt: Dodie malagon Prescriptions as of 06/11/2024 - torsemide [...] once daily. Every other day - Insulin Mackey, Disposable, (BD ULTRA-FINE SHAHEEN PEN NEEDLE) 32 gauge x 5/32 Use one needle for each dose. 1x/day. [...] by mouth once daily. - Blood-Glucose Meter [facility] Dispense 1 kit. 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 August 29, 2024 1:06pm Wound, open, foot inactive August 292024 1:06pm Amputation of right lower extremity below knee acute September 24 9:58am [facility] Work Phone: 1(233) 641-159801-15-2025 Evaluation note* Diagnosis Onset Date Resolution Status [...] chronic August 29, 2024 1:06pm 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 If they do we can open a new TE. [facility]01-14-2025 Miscellaneous Notes* Telephone Encounter - Catalina Ruth RN - 06/05/2024 3:25 PM EST Closing encounter as Pt and family have not called back in. If they do we can open a new TE. * Telephone Encounter - Alanna Vleoz LPN - 05/31/2024 2:18 PM EST Phoned [...] to clear him. If he is inthe fdc with Dr. Wiggins, they should have access [...] that Cardiology Dr. Yunior Tong from the [facility] has signed off on medical [...] call placed to patients son in law Jye. Made aware patient would need to be seen in office or could utilize nursing homes Dr. Baptistes understanding. Deborah Bedoya LPN * Telephone Encounter - Husam Yan MD - 05/30/2024 11:13 AM EST If he is a resident at the fdc, it would be most convenient for the patient to have Dr. Wiggins do his pre op there. If they are unable or unwilling, he would need OV with us before I could clear him. * Telephone Encounter - Alanna Veloz LPN - 05/30/2024 10:55 AM EST Phoned patients son, Jey back to advise if patient is at [facility] and on a skilled unit under Dr Wiggins's care we recommend she fill the clearance form out. Jey explained that Dr Wiggins rounds on Tuesday mornings when patient is at the wound clinic for his weekly debridments. Explained to son that wetypically need to obtain labs and EKG and patient would need to be seen in office. 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 Please advise. Alanna Veloz LPN * Telephone Encounter - Catalina Ruth RN - 05/30/2024 10:35 AM EST Jey Pts son in law called in and reports Pt is now in a prison facility. He states [facility] his big toe and the ball of his foot in April at the ER. He states they want to remove the rest of the toes as soon as they can, but they don't want to have to do it in the ER. He states that surgical supply assistant for this provider is going to be sending over a surgical release for for the providers office to sign. Pt was last seen by Lauren Podlogar MANAGER MASSAGE DEPARTMENT on 03/28/24, he had an A1C and CMP done. I don't know if Pt would been to come in and be seen again before forms could be signed. Forms are going to be sent to office Attn: Alanna and Deborah. Please call and advise if anything else will need to be done. documented in this [facility] Telephone encounter Note * Telephone Encounter - [...] triage nurse the ok/information. Alanna Veloz LPN [facility]01-09-2025 Telephone encounter Note* Telephone Encounter - Husam Yan MD - 05/31/2024 12:42 PM EST He will still need physical exam and possibly labs before I would be able to clear him. If he is inthe fdc with Dr. Wiggins, they should have access to his labs and might be easier for them to see and clear him. If unable or unwilling, I would need to see him in our office. [facility]01-09-2025 Telephone encounter Note* Telephone Encounter - Mary Hodges LPN - 05/31/2024 11:41 AM EST Son dropped off copies of POA and Living Will forms at this time. Mary Hodges LPN [facility]01-08-2025 Telephone encounter Note* Telephone Encounter - Deborah Bedoya LPN - 05/30/2024 4:52 PM EST Son in law calling in to advise office that Cardiology Dr. Yunior Tong from the [facility] has signed off on medical [...] review. Jey requesting call back tomorrow from [facility] after PCP reviews paperwork. Deborah Bedoya LPN [facility]01-08-2025 Telephone encounter Note* Telephone Encounter - Deborah Bedoya LPN - 05/30/2024 1:51 PM EST Telephone call placed to patients son in law Jey. Made aware patient would need to be seen in office or could utilize nursing homes Dr. Mauricio understanding. Deborah Bedoya LPN [facility]01-08-2025 Telephone encounter Note* Telephone Encounter - Husam Yan MD - 05/30/2024 11:13 AM EST If he is a resident at the fdc, it would be most convenient for the patient to have Dr. Wiggins do his pre op there. If they are unable or unwilling, he would need OV with us before I could clear him. [facility]01-08-2025 Telephone encounter Note* Telephone Encounter - Alanna Veloz LPN - 05/30/2024 10:55 AM EST Phoned patients son, Jey back to advise if patient is at [facility] and on a skilled unit under Dr Wiggins's care we recommend she fill the clearance form out. Jey explained that Dr Wiggins rounds on Tuesdays when patient is at the wound clinic for his weekly debridments. Explained to son that wetypically need to obtain labs and EKG and patient would need to be seen in office. 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 Please advise. Alanna Veloz LPN [facility]01-08-2025 Telephone encounter Note* Telephone Encounter - Catalina Ruth RN - 05/30/2024 10:35 AM EST Jey Pts son in law called in and reports Pt is now in a prison facility. He states [facility] took his big toe and the ball of his foot in April at the ER. He states they want to remove the rest of the toes as soon as they can, but they don't want to have to do it in the ER. He states that surgical supply assistant for this provider is going to be sending over a surgical release for for the providers office to sign. Pt was last seen by Lauren Podlogar MANAGER MASSAGE DEPARTMENT on 03/28/24, he had an A1C and CMP done. I don't know if Pt would been to come in and be seen again before forms could be signed. Forms are going to be sent to office Attn: Alanna and Deborah. Please call and advise if anything else will need to be done. [facility]12-19-2024 [facility]12-13-2024 [facility]12-03-2024 [facility]12-02-2024 NoteHNO ID: [id number] Author: SRIDEVI MILLER MA Service: ? Author Type: Production Worker Type: Progress Notes Filed: 04/23/2024 15:02 Note [...] Sridevi Miller MA April 23, 2024 2:[facility] History of Present illness Narrative* Sridevi Miller [...] 23, 2024 2:35 PM documented in this encounterSelect [facility] NotePatient Outreach (NETNAV) PERLA THOMPSON ([id number]) 1935 M Date Time Provider Department 04/23/24 SRIDEVI MILLER NETESTEBAN During your visit today, we recorded the [...] Visit: Population Health Navigation Outreach [3910] Cmt: [employer] Prescriptions as of 04/23/2024 - torsemide (DEMADEX) [...] once daily. Every other day - Insulin Mackey, Disposable, (BD ULTRA-FINE SHAHEEN PEN NEEDLE) 32 gauge x 32 Use one needle for each dose. 1x/day. [...] by mouth once daily. - Blood-Glucose Meter [facility] Dispense 1 kit. 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 [facility]11-26-2024 Miscellaneous Notes* Telephone Encounter - Mayela Hopson [...] below. She said her father is in [facility] with a fott infection right now. She will update you when she can. * Telephone Encounter - Lauren Arzola APRN.CNP - 04/16/2024 7:08 AM EST Update me Tuesday with readings. Lauren Arzola APRN.CNP * Telephone Encounter - Mayela Hopson LPN - 04/13/2024 2:47 PM EST Phoned daughter Norah and went over notes from Lauren Arzola MANAGER MASSAGE DEPARTMENT with understanding. Norah said father would not [...] units daily. Please advise documented in this encounterSelect [facility]24 Telephone encounter Note * Telephone Encounter - Lauren Arzola APRN.CNP - 04/16/2024 9:19 AM EST Okay. Possible why his sugars have bee elevated as well. Lauren Arzola APRN.CNP [facility]11-25-2024 Telephone encounter Note* Telephone Encounter - Mayela Hopson LPN - 04/16/2024 9:08 AM EST Phoned Norah and went over notes below. She said her father is in [facility] with a fott infection right now. She will update you when she can. [facility]11-25-2024 [facility]11-25-2024 Telephone encounter Note* Telephone Encounter - Lauren Arzola APRN.CNP - 04/16/2024 7:08 AM EST Update me Tuesday with readings. Lauren Arzola APRN.CNP [facility]11-23-2024 NoteHNO ID: [id number] Author: YOLANDA JAIN APRN.LUZ Service: ? Author [...] distress and family will self transport to [place] emergency [facility]11-23-2024 History of Present illness Narrative* Yolanda Jain [...] distress and family will self transport to [place] [facility] documented in this encounterSelect [facility]24 Telephone encounter Note * Telephone Encounter - Mayela Hopson LPN - 04/13/2024 2:47 PM EST Phoned daughter Norah and went over notes from Lauren Arzola MANAGER MASSAGE DEPARTMENT with understanding. Norah said father would not like to see pharmacist, she will try the increase in Lantus. [facility]11-22-2024 Telephone encounter Note* Telephone Encounter - Lauren Azrola APRN.CNP - 04/13/2024 2:36 PM EST Increase Lantus to 37 units daily. Would he be willing to talk with our clinical pharmacist to helpwith managing his diabetic medications as it doesn't seem we are getting much better. Lauren Arzola APRN.LUZ [facility]11-22-2024 Telephone encounter Note* Telephone Encounter - Mayela Hopson LPN - 04/13/2024 2:31 PM EST Patient daughter Norah calling fathers blood sugar average is 306. She said he is not very active, his activity is going to dialysis 3 times a week. His Lantus is 33 units daily. Please advise [facility]11-15-2024 Telephone encounter Note* Telephone Encounter - Deborah Bedoya LPN - 04/06/2024 8:18 AM EST Patients daughter Norah telephoned, she is medical POA and will be bringing in paperwork. Providers recommendations below given. Voices understanding. Deborah Bedoya LPN [facility]11-15-2024 Miscellaneous Notes* Telephone Encounter - Deborah Bedoya [...] average, sooner if getting lows. Lauren Arzola APRN.LUZ * Telephone Encounter - Mayela Hopson LPN - 04/05/2024 11:15 AM EST Patient daughter Norah calling to give MANAGER MASSAGE DEPARTMENT her father blood sugar average since increased [...] dates with separate readings. documented in this encounterSelect [facility]-2024 Telephone encounter Note * Telephone Encounter - [...] sooner if getting lows. Lauren Arzola APRN.CNP [facility]11-14-2024 Telephone encounter Note* Telephone Encounter - Mayela Hopson LPN - 04/05/2024 11:15 AM EST Patient daughter Norah calling to give MANAGER MASSAGE DEPARTMENT her father blood sugar average since increased [...] not give her dates with separate readings. [facility]11-06-2024 Instructions* Patient Instructions* Lauren Arzola APRN.CNP - 03/28/2024 1:09 PM EST Check blood sugars three times a day and as needed- update me in one week with readings, sooner if needed documented in this encounterSelect Medical [facility]-2024 NoteHNO ID: [id number] Author: LAUREN ARZOLA APRN.CNP Service: ? Author [...] changes, polyuria or polydipsia. Daughter concerned about horse trekking guide giving him a diuretic She reports he was at dialysis yesterday and they told him they were calling medication due to excess fluids. She is not sure what medication it is PAST MEDICAL HISTORY Diagnosis Date Chronic diastolic heart failure (HCC) Dr. Bacon 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) [place], Thalex, Sat Glaucoma Dr Jimenez LBBB (left [...] Outpatient Medications Medication Sig flash glucose sensor (FREESTYLE GELACIO 2 SENSOR) kit 2 Each four times daily. insulin glargine (LANTUS SOLOSTAR U-100 INSULIN) 100 unit/mL (3 mL) Inject 25 Units subcutaneously once daily. flash glucose scanning reader (ManageIQSTYLE GELACIO 14 DAY READER) 1 Units four [...] mouth once daily. Every other day Insulin Mackey, Disposable, (BD ULTRA-FINE SHAHEEN PEN NEEDLE) 32 gauge x Use one needle for each dose. 1x/day. [...] Units by mouth once daily. Blood-Glucose Meter [facility] Dispense 1 kit. Dx: E11.65 Aspirin 81 [...] 362.07, ICD10: E11. (more content not included)... [facility]11-06-2024 History of Present illness Narrative* PodlogLauren suarez APRN.PRINTING GRAY CLOTH TENDER - 03/28/2024 12:55 PM EST 03/28/2024 Patient [...] changes, polyuria or polydipsia. Daughter concerned about horse trekking guide giving him a diuretic She reports he was at dialysis yesterday and they told him they were calling medication due to excess fluids. She is not sure what medication it is PAST MEDICAL HISTORY Diagnosis Date Chronic diastolic heart failure (HCC) Dr. Bacon ESRD (end stage renal disease) on dialysis ([facility]) Tues, Thurs, Sat Glaucoma Dr Jimenez LBBB [...] Outpatient Medications Medication Sig flash glucose sensor (FREESTYLE GELACIO 2 SENSOR) [...] mouth once daily. Every other day Insulin Mackey, Disposable, (BD ULTRA-FINE SHAHEEN PEN NEEDLE) 32 gauge x 5/32 Use one needle for each dose. 1x/day. [...] Units by mouth once daily. Blood-Glucose Meter [facility] Dispense 1 kit. Dx: E11.65 Aspirin 81 [...] edema, without long-term current use of insulin ([facility]) - ICD9: 250.50, 362.05, 362.07, ICD10: E11.3313 [...] daughter they need to discuss concerns with horse trekking guide, verbalizes understanding Lauren Arzola APRN.PRINTING GRAY CLOTH TENDER Prescription instructions reviewed with patient as applicable. [...] Level: 4 - Moderate documented in this encounterSelect Medical [facility] History of Present illness Narrative* Lauren Arzola APRN.CNP - 01/06/2024 9:40 AM EDT 01/04/2024 Patient [...] week. Follows with Dr. Faria Follows with [facility] cardiology for hx of Mobitz Type [...] ESRD (end stage renal disease) on dialysis ([facility]) Comment: Tues, Thurs, Sat No date: Glaucoma Comment: Dr Jimenez [...] Units subcutaneously once daily. flash glucose sensor (ManageIQSTYLE GELACIO 2 SENSOR) kit 2 Each four times daily. semaglutide (OZEMPIC) 0.25 mg or 0.5 mg(2 mg/1.5 mL) pen Inject 0.5 mg subcutaneously one time a week. semaglutide (OZEMPIC) 0.25 mg or 0.5 mg(2 mg/1.5 mL) pen Inject 0.5 mg subcutaneously one time a week. flash glucose scanning reader (ManageIQSTYLE GELACIO 14 DAY READER) 1 Units four times daily. blood sugar diagnostic (BLOOD GLUCOSE TEST) test strip Test blood sugar(s) 2 times daily. Dx: Type 2 DM -E11.65 Insulin: No blood sugar diagnostic (ACCU-CHEK LISA PLUS TEST STRP) test strip Test blood sugar(s) 2x daily. DxE11.65. Insulin: No. mecobalamin (B12 ACTIVE ORAL) Take 1 tablet by mouth once daily. Every other day Insulin Mackey, Disposable, (BD ULTRA-FINE SHAHEEN PEN NEEDLE) 32 gauge x Use one needle for each dose. 1x/day. [...] Units by mouth once daily. Blood-Glucose Meter [facility] Dispense 1 kit. Dx: E11.65 Aspirin 81 [...] Ozempic due to GI side effects - [facility] GELACIO 2 SENSOR KIT - COMPREHENSIVE METABOLIC [...] should any other issues arise. Lauren Arzola APRN.CNP Prescription instructions reviewed with [...] Level: 4 - Moderate documented in this encounterSelect Medical [facility]-2024 NoteHNO ID: [id number] Author: LAUREN ARZOLA APRN.CNP Service: ? Author [...] week. Follows with Dr. Faria Follows with [facility] cardiology for hx of Mobitz Type [...] Units subcutaneously once daily. flash glucose sensor (CrewYLE GELACIO 2 SENSOR) kit 2 Each four times daily. semaglutide (OZEMPIC) 0.25 mg or 0.5 mg(2 mg/1.5 mL) pen Inject 0.5 mg subcutaneously one time a week. semaglutide (OZEMPIC) 0.25 mg or 0.5 mg(2 mg/1.5 mL) pen Inject 0.5 mg subcutaneously one time a week. flash glucose scanning reader (ManageIQSTYLE GELACIO 14 DAY READER) 1 Units four [...] mouth once daily. Every other day Insulin Mackey, Disposable, (BD ULTRA-FINE SHAHEEN PEN NEEDLE) 32 gauge x Use one needle for each dose. 1x/day. [...] Units by mouth once daily. Blood-Glucose Meter [facility] Dispense 1 kit. Dx: E11.65 Aspirin 81 [...] well nourished. EYES conjunctiva (more content not included)...[facility] 12-15-2023 Telephone encounter Note* Telephone Encounter - Damon Concepcion Hughes - 12/15/2023 4:28 PM EDT [...] untilOctober. Please call francisco Almazan Concepcion Van [facility] December 15, 2023 4:29 PM [facility]07-25-2024 Miscellaneous Notes* Telephone Encounter - Damon Concepcion Hughes - 12/15/2023 4:28 PM EDT [...] good untilOctober. Please call francisco Almazan Concepcion Vna [facility] December 15, 2023 4:29 PM documented in this encounterSelect [facility] Hospital Discharge instructions Patient Education 09/08/2023 14:39:24 [...] provider approves. General instructions Take or apply dfnp-erf-eiuaolo and prescription medicines only as told by [...] your health care provider. Take or apply xfyq-veg-isuquav and prescription medicines only as told by your health care provider. This includes any eye drops. This information is not intended to replace advice given to you by your health care provider. Make sure you discuss any questions you have with your health care provider. Document Released: 01/25/2012 Document Revised: 05/25/2019 Document Reviewed: 05/28/2019 [employer] Patient Education 2020 [employer] Follow Up Care 09/06/2023 10:35:24 With:JEAN PIERRE ZIEGLER MD, [facility] Address: [facility] [address] [facility] [place] [address]- [phone] When: Unknown Comments:Follow-up as scheduled [facility] 04-18-2024 Summary of episode note Discharge Instructions Thank you for allowing [facility] to assist you with your healthcare needs. The following is importantdischarge information regarding your hospital visit. What to do next Follow Up Appointments Follow Up with JEAN PIERRE ZIEGLER MD, [facility] When Why: Follow-up as scheduled Where: [facility] [address] [facility] [address]- [phone] The Following Activity and Diet Have Been [...] provider approves. General instructions Take or apply nrdu-uaa-plkcnxd and prescription medicines only as told by [...] your health care provider. Take or apply dpud-qyp-fgwzfix and prescription medicines only as told by your health care provider. This includes any eye drops. This information is not intended to replace advice given to you by your health care provider. Make sure you discuss any questions you have with your health care provider. Document Released: 01/25/2012 Document Revised: 05/25/2019 Document Reviewed: 05/28/2019 Elsevier Patient Education 2020 [employer] Additional Information VACCINATE! IT SAVES LIVES! Members of the community who have not yet received the COVID-19 vaccine and would like to receive it can visit one of [facility] vaccine clinics. There are many vaccine clinic locations within the [facility] [address]. For locations and available times, please visit https://gettheshot.coronavirus.[place].gov/. It is important to note that some COVID mobile vaccine clinics are held outdoors and may be canceled in rainy or stormy conditions. To learn more about pediatric vaccinations (ages 5-11), we invite you to visit the [facility] webpage. [email or web address] learn more about the COVID-19 vaccine, we invite you to visit the CDC website for a list of frequently asked questions.https://www.cdc.gov/coronavirus/2019-ncov/vaccines/faq.html [facility] Patient Portal Access Instructions: Stay connected with your healthcare team and access your personal medical information anytime with the [facility] Patient Portal. Please follow the directions below to create your [facility] account: 1.Access the email account you provided upon registration to the hospital/physician office.2.Look for an invitation email from [facility].3.Open the email and access the invitation link: AcceptInvitation to CrisBfly.4.Fill in the required meyers to create your account. To access your account, visit [email or web address]. Click the blue button labeled Access Patient Portal and then log in with the username and password that you created in the steps above. You will be able to view your test results, lab results, a summary of your visits, upcoming appointments and more. There is also a convenient messaging option where you can send secure messages to your p piotrvider. In addition, you will have the ability to download any documents or summaries to your computer and/or send the information securely to a physician. Remember that your healthcare information is confidential, so carefully consider who you will allowto register on the [facility] for access to your information. You can also access the [facility] on the [place] [facility] aramis. Simply click on Patient Portal and then log into your account. If you would like to receive a full copy of your medical records, please contact the [facility] Medical Records Department by calling [phone], Tuesday through Tuesday between 8 a.m. and [...] Call your local pharmacy or go to [email or web address] to find one close to you.3.Make use of household items: Use cat litter or old coffee grounds to dispose medications if other options arenot available. Mix your drugs with these household products, seal them in an airtight container andthrow it into the garbage. Call [facility]: [phone] to be sure your drugs can be [...] that I should contact my do ctor. 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 Comments: 09/07/2023 8:24 ISABEL Marte RIGHT EYE Angioplasty ([id number]) in 2021 at 87 Years. Comments: 09/07/2023 10:11 ISABEL Marte LEFT UPPER EXTREMITY FISTULOGRA IWTH CUTTING BALLON ANGIOPLASTY Repair of inguinal hernia ([id number]). Comments: 09/07/2023 8:23 ISABEL Marte UNSURE OF LATERALITY, HAD IN THE LATE 1960'S OR EARLY 1970'S Extn - Extraction of tooth ([id number]). Comments: 09/07/2023 8:23 ISABEL Marte ALL TEETH REMOVED AV - Arteriovenous fistula ([id number]). Comments: 09/07/2023 10:06 ISABEL Marte LEFT ARM [...] Height 170.2 cm Admission Weight 98.7 kg [place] Body Weight 66.12 kg Type of Scale [...] Documentation reviewed: Current records. Assessment and Plan [place] Society of Anesthesiologists (ASA) physical status classification: Class III. Anesthetic Preoperative Plan Premedication: intravenous. Anesthetic technique: General. Induction: intravenously. Maintenance airway: Oral endotracheal tube, RSI. Postoperative pain management: Per surgeon. Risks discussed: nausea, vomiting, headache, sore throat, dental injury, hypotension, allergic reaction, serious complications. Informed consent: signed by patient. Digitally Signed by JERMAINE SWANSON MD on 09/08/2023 12:14 PM [id number] Miscellaneous Notes* Telephone Encounter - Alanna Veloz [...] office or UC for appointment to confirm thisand get an [...] for a rx to be sent to [facility] please. Please advise documented in this encounterSelect [facility]03-18-2024 Miscellaneous Notes* Telephone Encounter - Deborah Bedoya [...] calling: self Call patient at: at home [phone] (home) [phone] (cell) Was an appointment scheduled: No Closing statement: Results or non-symptom based questions: Thank you for calling [facility], your call will be returned within the next business day. Demetra Hughes documented in this encounterSelect Medical [facility]03-07-2024 Miscellaneous Notes* Telephone Encounter - Meredith Gonzalez [...] notify patient. Demetra Hughes documented in this encounterSelect Medical [facility]02-21-2024 Miscellaneous Notes* Telephone Encounter - Valerie Burris LPN - 07/13/2023 8:14 AM EST Spoke to Norah, daughter and message given that short term prescription was sent to the pharmacy. Valerie Burris LPN * Telephone Encounter - Lauren Arzola APRN.LUZ - 07/13/2023 6:58 AM EST New prescription sent to [facility] Blake Arzola APRN.PRINTING GRAY CLOTH TENDER * Telephone Encounter - Heike Lainez - 07/12/2023 8:44 AM EST Patient's daughter, Norah, said a mail order rx for Ozempic was sent in yesterday for this patient. Said patient is completely out of medication. Wants to know if a short term refill can be sent to [facility] in [place]. Do not cancel mail order rx. * Telephone Encounter - Heike Lainez - 07/12/2023 8:43 AM EST Patient has been identified by name and date of : Yes, Provider Radhapatricia Norah Hobbs phones for refill(s): Requested Prescriptions Pending Prescriptions Disp Refills semaglutide (OZEMPIC) 0.25 mg or 0.5 mg(2 mg/1.5 mL) pen Sig: Inject 0.5 mg subcutaneously one time a week. Date of last office visit in primary care: 05/25/2023 Date of next office visit in primary care: 09/23/2023 Please advise. Thank you. Heike Hughes. documented in this encounterSelect Medical [facility]02-19-2024 Miscellaneous Notes* Telephone Encounter - Marina Huffman [...] visit in primary care: 09/23/2023 Patient using [facility] mail order please send new RX to mail order Per [facility] patient has no refills Please advise. Thank you. Mairna Anguiano. documented in this encounterSelect Medical [facility]02-05-2024 History of Present illness Narrative* Danilo Martines [...] Objective: [facility]: DP and PT pulses are nonpalpable [...] edema, without long-term current use of insulin ([facility]) (primary encounter diagnosis) (B35.1) Onychomycosis (M79.672) Left [...] Patient presents for diabetic foot care. ZITA- 2. Patient tried cutting some of his toenails last week. Clipped 1st and 2nd toe. Swelling to bilateral legs, using zip up compression stockings. documented in this encounterSelect Medical Cleveland [facility]02-05-2024 Instructions* Patient Instructions* Danilo Martines - 06/27/2023 [...] or sore from your shoes, do not pop it. Apply a bandage and wear a differentpair of shoes. Take Care of Your Toenails Cut toenails after bathing, when they are soft. Cut toenails straight across and smooth with a nail file. Avoid cutting into the corners of toes. Do not cut cuticles. If you have neuropathy (or decreased sensation in your feet) a supervisor lace tearing should always cut your toenails. Be Careful [...] your shoes are too tight. Perform the footwear test described below. Footwear Test Use this simple [...] Go to your health care provider or supervisor lace tearing to treat these conditions. documented in this encounterSelect Medical [facility]10-24-2023 Miscellaneous Notes* Telephone Encounter - Mayela Hopson LPN - 03/15/2023 9:56 AM EDT [facility] requesting copy of immunization record for flu shot information be faxed to [phone]. Printed and faxed as requested. documented in this encounterSelect Medical [facility]10-17-2023 Miscellaneous Notes* Telephone Encounter - Mayela Hopson [...] patient's mail order pharmacy. [facility] to [facility]. documented in this encounterSelect Medical [facility]10-05-2023 Miscellaneous Notes* Telephone Encounter - Margret Linares LPN - 02/24/2023 1:12 PM EDT Called the pharmacy and this was billed through insurance and picked up in 02/22/23. * Telephone Encounter - Margret Linares LPN - 02/24/2023 1:09 PM EDT PERLA THOMPSON (Mixon: [id number]) Rx #: [id number] Ozempic (0.25 or 0.5 MG/DOSE) 2MG/3ML pen-injectors Form [employer] Electronic PA Form Created 3 days ago Sent to Plan 20 hours ago Plan Response 20 hours ago Submit Clinical Questions 20 hours ago Determination Favorable 1 hour ago Message from Plan PA Case: [id number], Status: Approved, Coverage Starts on: 02/24/2023 12:15:13 PM, Coverage Ends on: 02/24/2023 12:15:13 PM. Questions? Contact . documented in this encounterSelect Medical [facility]08-15-2023 Telephone encounter Note * Telephone Encounter - [...] week. Please review and advise. Magaly Bhakta [facility]08-15-2023 Miscellaneous Notes* Telephone Encounter - Magaly Bhakta [...] and advise. Magaly Bhakta documented in this encounterSelect Medical [facility]07-17-2023 Instructions* Patient Instructions* Lauren Arzola APRN.PRINTING GRAY CLOTH TENDER - 12/06/2022 9:40 AM EDT WHAT YOU [...] review all the medicines you take, even mlyu-kqu-mztlopm medicines. As you get older, the way [...] have certain medical conditions. documented in this encounterSelect Medical [facility]07-17-2023 History of Present illness Narrative* Lauren Arzola [...] months CKD: Follows up with Dr. Khoury [facility]. Has dialysis three times a week. [...] ESRD (end stage renal disease) on dialysis ([facility]) Jamiees, Thalex, Sat Glaucoma Dr Jimenez LBBB (left [...] 1 tablet by mouth once daily. Insulin Mackey, Disposable, (BD ULTRA-FINE SHAHEEN PEN NEEDLE) 32 gauge x 5/32 Use one needle for each dose. 1x/day. [...] Units by mouth once daily. Blood-Glucose Meter [facility] Dispense 1 kit. Dx: E11.65 Aspirin 81 [...] prevention materials provided. - continue to use cane Lauren Arzola APRN.LUZ Prescription instructions reviewed with [...] which included preparing to see the patient, [id number] patient care, completing clinical documentation, obtaining and/or reviewing separately obtained history, performing a medically appropriate examination, counseling and educating the pat ient/family/caregiver, and ordering medications, tests, or procedures. documented in this encounterSelect Medical [facility]06-26-2023 Miscellaneous Notes* Telephone Encounter - Liza Johnson [...] of Last Labs: 09/06/2022 documented in this encounterSelect Medical [facility]06-15-2023 Miscellaneous Notes* Telephone Encounter - RAY Ruvalcaba - 11/04/2022 11:15 AM EDT Patient's daughter called back in, the test strips are called True Metrix, they would like these sent to [facility] in [place]. Please review. RAY Ruvalcaba November 04, 2022 [...] testing strips to be sent to [facility] [place]. Please review and advise, Liza Johnson RN documented in this encounterSelect Medical Cleveland [facility]06-07-2023 Miscellaneous Notes* Telephone Encounter - Harper Phillip - 10/27/2022 2:29 PM EDT Patient has [...] Insulin: No. Please review and advise. Harper Phillip documented in this encounterSelect Medical [facility]04-17-2023 History of Present illness Narrative* Lauren Arzola, ELICIA.PRINTING GRAY CLOTH TENDER - 09/06/2022 9:50 AM EDT 09/06/2022 Patient [...] dialysis CKD: Follows up with Dr. Khoury [facility]. Has dialysis three times a week. [...] Date Chronic diastolic heart failure (HCC) Dr. Baocn ESRD (end stage renal disease) on dialysis [...] sugar(s) 2x daily. DxE11.65. Insulin: No. Insulin Mackey, Disposable, (BD ULTRA-FINE SHAHEEN PEN NEEDLE) 32 gauge x 5/32 Use one needle for each dose. 1x/day. [...] Units by mouth once daily. Blood-Glucose Meter [facility] Dispense 1 kit. Dx: E11.65 Aspirin 81 [...] edema, without long-term current use of insulin ([facility]) - ICD9: 250.50, 362.05, 362.07, ICD10: E11.3313 (primary diagnosis) - getting close to goal - patient wants to work in diet and exercise - will continue Lantus and ozempic - check blood sugars twice a day - HGB A1C - HEMOGLOBIN A1C (POC) - follow-up in 3 months if not at [place] increase ozempic 2. ESRD (end stage renal disease) on dialysis ([facility]) - ICD9: 585.6, V45.11, ICD10: N18.6, Z99.2 - continue current medications and follow-up with nephrology and dialysis as scheduled 3. Chronic diastolic heart failure (HCC) - ICD9: 428.32, ICD10: I50.32 - stable - continue current medications - follow-up with cardiology as scheduled Lauren Arzola APRN.CNP Prescription instructions reviewed with [...] which included preparing to see the patient, rwqk-zw-ixsa patient care, completing clinical documentation, obtaining and/or reviewing separately obtained history, performing a medically appropriate examination, counseling and educating the pat ient/family/caregiver, and ordering medications, tests, or procedures. documented in this encounterSelect Medical [facility]03-30-2023 Miscellaneous Notes* Telephone Encounter - Aimee Nicole [...] Thank you. Aimee Nicole documented in this encounterSelect Medical Cleveland [facility]01-17-2023 Miscellaneous Notes* Telephone Encounter - Lauren Arzola APRN.CNP - 06/08/2022 10:10 AM EST Ozempic sent to mail order. Lauren Arzola APRN.LUZ * Telephone Encounter - Deborah Bedoya LPN - 06/08/2022 10:00 AM EST Patients daughter telephoned and notified of results and recommendations. Voices understanding. [facility] stated they wont have the ozempic until [...] will place referral order. documented in this encounterSelect Medical [facility]01-16-2023 History of Present illness Narrative* Husam Yan [...] ESRD (end stage renal disease) on dialysis ([facility]) Josh, Thai, Sat Glaucoma Dr Jimenez LBBB (left bundle [...] sugar(s) 2x daily. DxE11.65. Insulin: No. Insulin Mackey, Disposable, (BD ULTRA-FINE SHAHEEN PEN NEEDLE) 32 gauge x Use one needle for each dose. 1x/day. lancets (FREESTYLE LANCETS) 28 gauge 1 Each once daily. blood sugar diagnostic (BLOOD GLUCOSE TEST) test strip Test blood sugar(s) 2x daily. Dx: E11.65. Insulin: No COMPOUNDED PRESCRIPTION True Metrix Test Strips. Test blood sugar(s) 2x daily. Dx: E11.65. Insulin:No cholecalciferol (VITAMIN D3) 5,000 unit tab Take 5,000 Units by mouth once daily. Blood-Glucose Meter [facility] Dispense 1 kit. Dx: E11.65 Aspirin 81 [...] diet. Husam Yan MD documented in this encounterSelect Medical [facility]10-24-2022 Miscellaneous Notes* Telephone Encounter - Yamel Roe [...] new regimen. If agreeable, will call in Novolog/Turbo-Trac [place] to his pharmacy. Kidney function in ESRD range. Continue with dialysis. Cholesterol looks good. documented in this encounterSelect Medical [facility]10-14-2022 History of Present illness Narrative* Husam Yan [...] with dialysis 3 days per week at [facility] as directed. albumin was low on his [...] (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) [place], Thai, Sat Glaucoma Dr Jimenez LBBB (left bundle [...] left cephalic vein to radial artery anastomotic / powerflex angioplasty RPR 1ST INGUN HRNA AGE [...] sugar(s) 2x daily. DxE11.65. Insulin: No. Insulin Mackey, Disposable, (BD ULTRA-FINE SHAHEEN PEN NEEDLE) 32 gauge x Use one needle for each dose. 1x/day. [...] Units by mouth once daily. Blood-Glucose Meter [facility] Dispense 1 kit. Dx: E11.65 Aspirin 81 [...] insulin (HCC) - ICD9: 250.50, 362.04, 362.07, ICD10: E11.3213 [...] vaccine - ICD9: V04.89, ICD10: Z23 - PFIZER-BIONTECH COVID-19 BIVALENT BOOSTER VACCINE, AGE 12+ YR Husam Yan MD documented in this encounterSelect Medical [facility]09-19-2022 Miscellaneous Notes* Telephone Encounter - Deborah Bedoya LPN - 02/08/2022 9:58 AM EDT Daughter Norah notified. Voices understanding. Deborah Bedoya LPN * Telephone Encounter - Lauren Arzola APRN.LUZ - 02/08/2022 9:30 AM EDT He may take the tresiba as ordered- it is a long acting insulin. I will sent another prescription as requested by [employer]. Lauren Arzola APRN.LUZ * Telephone Encounter - Valerie Burris LPN - 02/08/2022 8:35 AM EDT Bernarda with [facility] called and they do cover Lantus and to send new rx to them today so they can fill for pt. Per Bernarda Pt was given a Generic from [facility]. Spoke with [facility] Pharmacist and Tresiba was given to the [...] 06/14/2019 8.0 Please advise. Thank you. Valerie Burris LPN * Telephone Encounter - Lauren Arzola APRN.CNP - 02/08/2022 8:21 AM EDT Please call and ask them what long acting insulin do they cover for this patient. Hehas been on Lantus. Have they changed what they cover? Please let daughter know [facility] What insulin did they receive from [facility]. Thanks, Lauren Arzola APRN.CNP * Telephone Encounter - Concepcion Van Pss - 02/08/2022 8:09 AM EDT Daughter Norah is calling and she stated she needs to know what is going on because this was supposed to arrive from [facility]. Then a prescription went to [facility] and they filled something but it was not Lantus; patient is afraid to take the insulin because he does not know what it is. Patient is out of medication. Please call Norah, ; she needs to know what is going on. * Telephone Encounter - aCtalina Ruth RN - 02/03/2022 9:06 AM EDT Madhuri with [facility] called in and is going to fax over PA information on the Glargine U100 to fax # [phone]. She is asking to have it faxed back to them. documented in this encounterSelect Medical Cleveland [facility]09-13-2022 Miscellaneous Notes* Telephone Encounter - Alanna Veloz LPN - 02/02/2022 1:53 PM EDT ZITA 09/02/21 NOV 03/05/22 * Telephone Encounter - Marina Anguiano - 02/02/2022 12:36 PM EDT Patient has been identified by name and date of : Yes Requested Prescriptions Pending Prescriptions Disp Refills insulin glargine (LANTUS SOLOSTAR U-100 INSULIN) 100 unit/mL (3 mL) 5 Each 0 Sig: Inject 18 Units subcutaneously once daily. RX INSTRUCTIONS: NOTE; PATIENT HAS NOT RECEIVED THE MAIL ORDER RX REQUESTED ON 01/26/2022 FOR HIS [facility],PLEASE FILL THIS SOON POSSIBLE Patient aware RX will be sent to pharmacy. No need to notify patient. Marina Anguiano documented in this encounterSelect Medical [facility]09-06-2022 Miscellaneous Notes* Telephone Encounter - Harper García Pss - 01/26/2022 12:47 PM EDT Pharmacy verified [...] advise. Harper García Pss documented in this encounterSelect Medical [facility]07-25-2022 Miscellaneous Notes* Telephone Encounter - Amirah Bee [...] 02/2022 Last refill: 02/2021 documented in this encounterSelect Medical Cleveland [facility]05-06-2022 Miscellaneous Notes* Telephone Encounter - Husam Yan MD - 09/25/2021 12:56 PM EDT Reviewed. * Telephone Encounter - Breanne Carvalho RN - 09/25/2021 12:42 PM EDT Daughter, Norah, returned call from pcp office. Reports patient received call also, but he won't return calls. Given provider's message below with verbalized understanding. Reports she will try to get patient to see horse trekking guide, but doesn't think he will. Reports patient [...] week with his readings. 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 02/28/2020 Noncompliance with diet and medication regimen 1 06/17/2012 11/18/2016 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 04/07/2013 11/18/2016 Leg edema 07/14/2009 02/28/2020 documented as of this encounter (statuses as of 10/07/2021) [facility] History of Past illness Narrative* Problem Noted Date Resolved Date 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 12/19/2015 04/26/2016 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 02/28/2020 Noncompliance with diet and medication regimen 1 06/17/2012 11/18/2016 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 04/07/2013 11/18/2016 Leg edema 07/14/2009 02/28/2020 documented as of this encounter (statuses as of 12/14/2021) [facility] History of Past illness Narrative* Problem Noted Date Resolved Date 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 12/19/2015 04/26/2016 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 02/28/2020 Noncompliance with diet and medication regimen 1 06/17/2012 11/18/2016 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 04/07/2013 11/18/2016 Leg edema 07/14/2009 02/28/2020 documented as of this encounter (statuses as of 02/02/2022) [facility] History of Past illness Narrative* Problem Noted Date Resolved Date 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 12/19/2015 04/26/2016 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 02/28/2020 Noncompliance with diet and medication regimen 1 06/17/2012 11/18/2016 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 04/07/2013 11/18/2016 Leg edema 07/14/2009 02/28/2020 documented as of this encounter (statuses as of 02/08/2022) [facility] History of Past illness Narrative* Problem Noted Date Resolved Date 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 12/19/2015 04/26/2016 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 02/28/2020 Noncompliance with diet and medication regimen 1 06/17/2012 11/18/2016 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 04/07/2013 11/18/2016 Leg edema 07/14/2009 02/28/2020 documented as of this encounter (statuses as of 02/19/2022) [facility] History of Past illness Narrative* Problem Noted Date Resolved Date 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 12/19/2015 04/26/2016 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 02/28/2020 Noncompliance with diet and medication regimen 1 06/17/2012 11/18/2016 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 04/07/2013 11/18/2016 Leg edema 07/14/2009 02/28/2020 documented as of this encounter (statuses as of 03/10/2022) [facility] History of Past illness Narrative* Problem Noted Date Resolved Date 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 12/19/2015 04/26/2016 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 02/28/2020 Noncompliance with diet and medication regimen 1 06/17/2012 11/18/2016 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 04/07/2013 11/18/2016 Leg edema 07/14/2009 02/28/2020 documented as of this encounter (statuses as of 03/15/2022) [facility] History of Past illness Narrative* Problem Noted [...] of this encounter (statuses as of 06/07/2022) [facility] History of Past illness Narrative* Problem Noted [...] of this encounter (statuses as of 06/08/2022) [facility] History of Past illness Narrative* Problem Noted [...] of this encounter (statuses as of 08/19/2022) [facility] History of Past illness Narrative* Problem Noted [...] of this encounter (statuses as of 09/06/2022) [facility] History of Past illness Narrative* Problem Noted [...] of this encounter (statuses as of 10/28/2022) [facility] History of Past illness Narrative* Problem Noted [...] of this encounter (statuses as of 11/04/2022) [facility] History of Past illness Narrative* Problem Noted [...] of this encounter (statuses as of 11/15/2022) [facility] History of Past illness Narrative* Problem Noted [...] of this encounter (statuses as of 12/06/2022) [facility] History of Past illness Narrative* Problem Noted [...] of this encounter (statuses as of 02/26/2023) [facility] History of Past illness Narrative* Problem Noted [...] of this encounter (statuses as of 03/08/2023) [facility] History of Past illness Narrative* Problem Noted [...] of this encounter (statuses as of 03/15/2023) [facility] History of Past illness Narrative* Problem Noted [...] of this encounter (statuses as of 06/27/2023) [facility] History of Past illness Narrative* Problem Noted [...] of this encounter (statuses as of 07/11/2023) [facility] History of Past illness Narrative* Problem Noted [...] of this encounter (statuses as of 07/13/2023) [facility] History of Past illness Narrative* Problem Noted [...] of this encounter (statuses as of 07/28/2023) [facility] History of Past illness Narrative* Problem Noted [...] of this encounter (statuses as of 08/08/2023) [facility] History of Past illness Narrative* Problem Noted [...] of this encounter (statuses as of 09/07/2023) [facility] No data available for this section [facility] Evaluation note* Diagnosis Onset Date Resolution Status Problem with dialysis access acute Problem with dialysis access [facility] Work Phone: Evaluation note* Diagnosis 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 edema, without long-term current use of insulin ([facility]) documented in this encounter [facility] note* Diagnosis 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 edema, without long-term current use of insulin ([facility]) documented in this encounter [facility] note* Diagnosis 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 edema, without long-term current use of insulin ([facility]) documented in this encounter [facility] note* Diagnosis 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 edema, without long-term current use of insulin ([facility]) documented in this encounter [facility] note* Diagnosis 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 edema, without long-term current use of insulin ([facility])- Primary Essential hypertension Unspecified essential hypertension Mixed hyperlipidemia 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) End stage renal disease Need for COVID-19 vaccine documented in this encounter [facility] note* Diagnosis 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, without long-term current use of insulin ([facility])- Primary Essential hypertension Unspecified essential hypertension Mixed [...] 5 chronic kidney disease on chronic dialysis ([facility]) 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 edema, with long-term current use of insulin ([facility]) [facility]* Diagnosis 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, without long-term current use of insulin ([facility]) [facility]* Diagnosis 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, without long-term current use of insulin ([facility]) [facility]* Diagnosis 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, without long-term current use of insulin ([facility])- Primary ESRD (end stage renal disease) on dialysis ([facility]) End stage renal disease Chronic diastolic heart failure ([facility]) Chronic diastolic heart failure [facility] this encounter [facility]* Diagnosis 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 edema, without long-term current use of insulin ([facility]) [facility] this encounter [facility]* Diagnosis 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, without long-term current use of insulin ([facility]) documented in this encounter [facility] note* Diagnosis 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, without long-term current use of insulin ([facility])- Primary Lower extremity edema Edema ESRD (end stage renal disease) on dialysis ([facility]) End stage renal disease Chronic diastolic heart failure (HCC) Chronic diastolic heart failure Essential hypertension Unspecified essential hypertension 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 At high risk for falls Personal history of fall [facility] this encounter [facility]* Diagnosis 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, without long-term current use of insulin ([facility]) documented in this encounter [facility] note* Diagnosis 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 edema, without long-term current use of insulin ([facility])- Primary Onychomycosis Dermatophytosis of nail Left foot pain Pain in limb Right foot pain Pain in limb [facility] Diagnosis 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, without long-term current use of insulin ([facility]) [facility] Diagnosis 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, without long-term current use of insulin ([facility]) [facility] Diagnosis 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 edema, with long-term current use of insulin ([facility]) [facility] encounter [facility] Diagnosis 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, without long-term current use of insulin ([facility]) documented in this encounter [facility] note* Diagnosis 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 edema, with long-term current use of insulin ([facility])- Primary 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) End stage renal disease Chronic diastolic heart failure (HCC) Chronic diastolic heart failure 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 Lower extremity edema Edema Essential hypertension Unspecified essential hypertension Mixed hyperlipidemia [facility]* Diagnosis 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, without long-term current use of insulin ([facility]) [facility]* Diagnosis 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, acquired [facility]* Diagnosis 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, without long-term current use of insulin ([facility])- Primary 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) End stage renal disease [facility]* Diagnosis Right foot infection- Primary Unspecified local infection of skin and subcutaneous tissue [facility] this encounter [facility]* Diagnosis 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, without long-term current use of insulin ([facility]) [facility] Diagnostic Procedure Only (Routine) - Closed Specialty Diagnoses / Procedures Referred By Tay aguilar Referred To Contact XR IMAGING Diagnoses Deformity of both feet Procedures XR FOOT GENERAL 3V AP/LAT/OBL BILAT X-RAY FOOT MINIMUM 3 VIEWS Husam Yan MD [address] [place] [address] [place] [address] Referral ID Status Reason Start Date Expiration Date V isits Requested Visits Authorized Closed Auto-Generate d Referral 03/04/2021 04/03/2022 1 1 [facility]* Diagnostic Procedure Only (Routine) - Closed Specialty Diagnoses / Procedures Referred By Tay aguilar Referred To Contact XR IMAGING Diagnoses Deformity of both feet Procedures XR FOOT GENERAL 3V AP/LAT/OBL BILAT X-RAY FOOT MINIMUM 3 VIEWS Husam Yan MD [address] [place] [address] [place] [address] Referral ID Status Reason Start Date Expiration Date V isits Requested Visits Authorized Closed Auto-Generate d Referral 03/04/2021 04/03/2022 1 1 [facility] Chief Complaint and Reason for Visit Chief Complaint L ARM DIALYSIS CATH LOW ADEQUECY LOW ACCESS FLOW DIALYSIS ACCESS COMPLICATION DIALYSIS ACCESS COMPLICATION Reason for Visit Problem with dialysi s access Problem with dialysis access Chief Complaint Admit Date USP LAB WORK June 06, 2024 5:00am 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 June 06, 2024 5:57am POST-OP EXAM June 06, 2024 2 :32pm LABWORK June 08, 2024 5 :00am USP LAB WORK June 11, 2024 5:00am LAB [...] 30am WOUND August 20, 2024 1:5 9pm USP LAB WORK August 27, 2024 4: 00am [...] 2024 5:48pm Diabetic infection of right foot 2024 5:48pm Osteomyelitis of right foot June [...] chronic disease August 29 1:06pm 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 August 29, 2024 1:06pm Wound, open, foot August 29, 2024 1:06 pm 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 September 24, 2024 9:58am Chief Complaint Admit Date USP LAB WORK June 06, 2024 5:00am 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 June 06, 2024 5:57am POST-OP EXAM June 06, 2024 2 :32pm LABWORK June 08, 2024 5 :00am USP LAB WORK June 11, 2024 5:00am LAB [...] 30am WOUND August 20, 2024 1:5 9pm USP LAB WORK August 27, 2024 4: 00am [...] 2024 5:48pm Diabetic infection of right foot Februa2024 5:48pm Osteomyelitis of right foot June 5:48pm [...] chronic disease August 29 1:06pm 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 [...] 30am WOUND August 20, 2024 1:5 9pm USP LAB WORK August 27, 2024 4: 00am [...] 10:30am End stage renal disease July 13, 025 5:48pm MRSA bacteremia July 13, 2024 [...] chronic disease August 29 1:06pm 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 [...] 30am WOUND August 20, 2024 1:5 9pm USP LAB WORK August 27, 2024 4: 00am [...] 2024 5:48pm Diabetic infection of right foot 2024 5:48pm Osteomyelitis of right foot June [...] chronic disease August 29 1:06pm 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 Yes July 02, 2024 2:52pm Name of Medical Power of Screw Remover NORAH GATES July 02, 2024 2:52pm Living Will Yes July 03 025 3:50pm Do you have a Healthcare Pow er of Screw Remover? Yes July 03, 2024 3:50pm Name of Medical Power of Screw Remover jacinda jagjit July 03, 2024 3:50pm Living Will Yes July 07 025 7:28pm Do you have a Healthcare Pow er of Screw Remover? Yes July 07, 2024 7:28pm Name of Medical Power of Screw Remover maurice gates- daughter July 07, 2024 7:28pm Living Will Yes July 13 025 7:33pm Do you have a Healthcare Pow er of Screw Remover? Yes July 13, 2024 7:33pm Name of Medical Power of Screw Remover Jacinda Ortizac k July 13, 2024 7:33pm Living Will Yes August 28, 2024 8:57am Do you have a Healthcare Pow er of Screw Remover? Yes August 28, 2024 8:57am Name of Medical Power of Screw Remover NORAH GATES August 28, 2024 8:57am Living Will No June 04 2:32pm Do you have a Healthcare Pow er of Screw Remover? No June 04, 2024 2:32pm Living Will Yes August 01, 2024 1:12pm Do you have a Healthcare Pow er of Screw Remover? Yes August 01, 2024 1:12pm Name of Medical Power of Screw Remover Jacinda Gates - [facility] August 01, 2024 1:12pm Advance Directives Yes April 11:29am Advance Directive Response Recorded Date/ Time Living Will Yes July 02, 025 2:52pm Do you have a Healthcare Pow er of Screw Remover? Yes July 02, 2024 2:52pm Name of Medical Power of Screw Remover NORAH GATES July 02, 2024 2:52pm Living Will Yes July 03, 025 3:50pm Do you have a Healthcare Pow er of Screw Remover? Yes July 03, 2024 3:50pm Name of Medical Power of Screw Remover jacinda gates July 03, 2024 3:50pm Living Will Yes July 07, 2 025 7:28pm Do you have a Healthcare Pow er of Screw Remover? Yes July 07, 2024 7:28pm Name of Medical Power of Screw Remover maurice gates- daughter July 07, 2024 7:28pm Living Will Yes July 13, 025 7:33pm Do you have a Healthcare Pow er of Screw Remover? Yes July 13, 2024 7:33pm Name of Medical Power of Screw Remover Jacinda Ortizjorge k July 13, 2024 7:33pm Living Will Yes August 28, 2024 8:57am Do you have a Healthcare Pow er of Screw Remover? Yes August 28, 2024 8:57am Name of Medical Power of Screw Remover NORAH GATES August 28, 2024 8:57am Living Will Yes August 01, 2024 1:12pm Do you have a Healthcare Pow er of Screw Remover? 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 [address] [place] [address] Referral ID Status Reason Start Date Expiration Date V isits Requested Visits Authorized [id number] Pending Review 1 1 Referral ID Status Reason Start Date Expiration Date Visits Re quested Visits Authorized [id number] Closed 1 1 Specialty Diagnoses / Procedures Referred By Contac t Referred To Contact Diagnoses 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, without long-term current use of insulin ([facility]) Lauren Arzola APRN.PRINTING G[employer] CLOTH TENDER [address] [place] [address] Referral ID Status Reason Start Date Expiration Date V isits Requested Visits Authorized [id number] Authorized 1 1 Summary Purpose Additional Source Comments Source Comments (unrecognize d section and content) In the event this informatio n is protected by the Federal Confidentiality of Alcohol and Drug Abuse Patient Records regulations: The Federal rules restrict any use of the information to criminally investigate or prosecute any alcohol or drug abuse patient.[facility] the event this information is protected by the Federal Confidentiality of Alcohol and Drug Abuse Patient Records regulations: The Federal rules restrict any use of the information to criminally investigate or prosecute any alcohol or drug abuse patient.[facility] the event this information is protected by the Federal Confidentiality of Alcohol and Drug Abuse Patient Records regulations: The Federal rules restrict any use of the information to criminally investigate or prosecute any alcohol or drug abuse patient.[facility] the event this information is protected by the Federal Confidentiality of Alcohol and Drug Abuse Patient Records regulations: The Federal rules restrict any use of the information to criminally investigate or prosecute any alcohol or drug abuse patient.[facility] the event this information is protected by the Federal Confidentiality of Alcohol and Drug Abuse Patient Records regulations: The Federal rules restrict any use of the information to criminally investigate or prosecute any alcohol or drug abuse patient.[facility] the event this information is protected by the Federal Confidentiality of Alcohol and Drug Abuse Patient Records regulations: The Federal rules restrict any use of the information to criminally investigate or prosecute any alcohol or drug abuse patient.[facility] the event this information is protected by the Federal Confidentiality of Alcohol and Drug Abuse Patient Records regulations: The Federal rules restrict any use of the information to criminally investigate or prosecute any alcohol or drug abuse patient.[facility] the event this information is protected by the Federal Confidentiality of Alcohol and Drug Abuse Patient Records regulations: The Federal rules restrict any use of the information to criminally investigate or prosecute any alcohol or drug abuse patient.[facility] the event this information is protected by the Federal Confidentiality of Alcohol and Drug Abuse Patient Records regulations: The Federal rules restrict any use of the information to criminally investigate or prosecute any alcohol or drug abuse patient.[facility] the event this information is protected by the Federal Confidentiality of Alcohol and Drug Abuse Patient Records regulations: The Federal rules restrict any use of the information to criminally investigate or prosecute any alcohol or drug abuse patient.[facility] the event this information is protected by the Federal Confidentiality of Alcohol and Drug Abuse Patient Records regulations: The Federal rules restrict any use of the information to criminally investigate or prosecute any alcohol or drug abuse patient.[facility] the event this information is protected by the Federal Confidentiality of Alcohol and Drug Abuse Patient Records regulations: The Federal rules restrict any use of the information to criminally investigate or prosecute any alcohol or drug abuse patient.[facility] the event this information is protected by the Federal Confidentiality of Alcohol and Drug Abuse Patient Records regulations: The Federal rules restrict any use of the information to criminally investigate or prosecute any alcohol or drug abuse patient.[facility] the event this information is protected by the Federal Confidentiality of Alcohol and Drug Abuse Patient Records regulations: The Federal rules restrict any use of the information to criminally investigate or prosecute any alcohol or drug abuse patient.[facility] the event this information is protected by the Federal Confidentiality of Alcohol and Drug Abuse Patient Records regulations: The Federal rules restrict any use of the information to criminally investigate or prosecute any alcohol or drug abuse patient.[facility] the event this information is protected by the Federal Confidentiality of Alcohol and Drug Abuse Patient Records regulations: The Federal rules restrict any use of the information to criminally investigate or prosecute any alcohol or drug abuse patient.[facility] the event this information is protected by the Federal Confidentiality of Alcohol and Drug Abuse Patient Records regulations: The Federal rules restrict any use of the information to criminally investigate or prosecute any alcohol or drug abuse patient.[facility] [facility] ShawIn the event this information is protected by the Federal Confidentiality of Alcohol and Drug Abuse Patient Records regulations: The Federal rules restrict any use of the information to criminally investigate or prosecute any alcohol or drug abuse patient.[facility] ShawIn the event this information is protected by the Federal Confidentiality of Alcohol and Drug Abuse Patient Records regulations: The Federal rules restrict any use of the information to criminally investigate or prosecute any alcohol or drug abuse patient.[facility] ShawIn the event this information is protected by the Federal Confidentiality of Alcohol and Drug Abuse Patient Records regulations: The Federal rules restrict any use of the information to criminally investigate or prosecute any alcohol or drug abuse patient.[facility] ShawIn the event this information is protected by the Federal Confidentiality of Alcohol and Drug Abuse Patient Records regulations: The Federal rules restrict any use of the information to criminally investigate or prosecute any alcohol or drug abuse patient.[facility] ShawIn the event this information is protected by the Federal Confidentiality of Alcohol and Drug Abuse Patient Records regulations: The Federal rules restrict any use of the information to criminally investigate or prosecute any alcohol or drug abuse patient.[facility] ShawIn the event this information is protected by the Federal Confidentiality of Alcohol and Drug Abuse Patient Records regulations: The Federal rules restrict any use of the information to criminally investigate or prosecute any alcohol or drug abuse patient.[facility] ShawIn the event this information is protected by the Federal Confidentiality of Alcohol and Drug Abuse Patient Records regulations: The Federal rules restrict any use of the information to criminally investigate or prosecute any alcohol or drug abuse patient.[facility] ShawIn the event this information is protected by the Federal Confidentiality of Alcohol and Drug Abuse Patient Records regulations: The Federal rules restrict any use of the information to criminally investigate or prosecute any alcohol or drug abuse patient.[facility] ShawIn the event this information is protected by the Federal Confidentiality of Alcohol and Drug Abuse Patient Records regulations: The Federal rules restrict any use of the information to criminally investigate or prosecute any alcohol or drug abuse patient.[facility] ShawIn the event this information is protected by the Federal Confidentiality of Alcohol and Drug Abuse Patient Records regulations: The Federal rules restrict any use of the information to criminally investigate or prosecute any alcohol or drug abuse patient.[facility] ShawIn the event this information is protected by the Federal Confidentiality of Alcohol and Drug Abuse Patient Records regulations: The Federal rules restrict any use of the information to criminally investigate or prosecute any alcohol or drug abuse patient.[facility] ShawIn the event this information is protected by the Federal Confidentiality of Alcohol and Drug Abuse Patient Records regulations: The Federal rules restrict any use of the information to criminally investigate or prosecute any alcohol or drug abuse patient.[facility] ShawIn the event this information is protected by the Federal Confidentiality of Alcohol and Drug Abuse Patient Records regulations: The Federal rules restrict any use of the information to criminally investigate or prosecute any alcohol or drug abuse patient.[facility] ShawIn the event this information is protected by the Federal Confidentiality of Alcohol and Drug Abuse Patient Records regulations: The Federal rules restrict any use of the information to criminally investigate or prosecute any alcohol or drug abuse patient.[facility] ShawIn the event this information is protected by the Federal Confidentiality of Alcohol and Drug Abuse Patient Records regulations: The Federal rules restrict any use of the information to criminally investigate or prosecute any alcohol or drug abuse patient.[facility] ShawIn the event this information is protected by the Federal Confidentiality of Alcohol and Drug Abuse Patient Records regulations: The Federal rules restrict any use of the information to criminally investigate or prosecute any alcohol or drug abuse patient.[facility] ShawIn the event this information is protected by the Federal Confidentiality of Alcohol and Drug Abuse Patient Records regulations: The Federal rules restrict any use of the information to criminally investigate or prosecute any alcohol or drug abuse patient.[facility] ShawIn the event this information is protected by the Federal Confidentiality of Alcohol and Drug Abuse Patient Records regulations: The Federal rules restrict any use of the information to criminally investigate or prosecute any alcohol or drug abuse patient.[facility] ShawIn the event this information is protected by the Federal Confidentiality of Alcohol and Drug Abuse Patient Records regulations: The Federal rules restrict any use of the information to criminally investigate or prosecute any alcohol or drug abuse patient.[facility] ShawIn the event this information is protected by the Federal Confidentiality of Alcohol and Drug Abuse Patient Records regulations: The Federal rules restrict any use of the information to criminally investigate or prosecute any alcohol or drug abuse patient.[facility] Reason for Visit (unrecogniz ed section and content) Reason Comments Results Reason Onset Date Comments Refill Request 12/14/2021 Reason Comments Refill Request Reason Comments Insurance Authorization Information on G largine Reason Onset Date Comments Refill Request 01/26/2022 Reason Comments Follow Up 6 month Reason Comments Follow Up 3 month Reason Onset Date Comments Refill Request 08/19/2022 Reason Comments F/U 3 Month Reason Comments Refill Request Reason Onset Date Comments Refill Request 11/04/2022 Reason Onset Date Comments Refill Request 11/15/2022 Reason Comments Insurance Authorization Reason Comments Medication Problem Reason Comments [facility] [place] requesting recor ds Reason Comments Established Patient [...] Comments Population Health Navigation Outreach 07/11/2024 [employer] Care Teams (unrecognized sec tion and [...] 2024 End: July 02, 2024 Meredith Guevara MANAGER MASSAGE DEPARTMENT, MANAGER MASSAGE DEPARTMENT-C Attending Provider Active Start: July 02, 2024 [...] 2024 End: July 10, 2024 Meredith Guevara MANAGER MASSAGE DEPARTMENT, MANAGER MASSAGE DEPARTMENT-C Attending Provider Active Start: July 10, 2024 [...] 2024 End: July 13, 2024 Meredith Guevara MANAGER MASSAGE DEPARTMENT, MANAGER MASSAGE DEPARTMENT-C Attending Provider Active Start: July 13, 2024 [...] 2024 End: July 31, 2024 Meredith Guevara MANAGER MASSAGE DEPARTMENT, MANAGER MASSAGE DEPARTMENT-C Attending Provider Active Start: July 31, 2024 End: July 31, 2024 Team Status: Inactive Member Role Status Dates Dr. Nando Wiggins MD Primary Care Provider Active Start: August 01, 2024 End: August 01, 2024 Meredith Guevara MANAGER MASSAGE DEPARTMENT, MANAGER MASSAGE DEPARTMENT-C Attending Provider Active Start: August 01, 2024 [...] End: September 05, 2024 Meredith Guevara NP, MANAGER MASSAGE DEPARTMENT-C Attending Provider Active Start: September 05, 2024 [...] October 17, 2024 End: October 17, 2024 Social Economist Relationship Specialty Start Date End Date Husam Yan MD [address] [place], [place] [id number] PCP - General Family Practice 10/14/16 Social Economist Relationship Specialty Start Date End Date Husam Yan MD [address] [place], [place] [id number] PCP - General Family Practice 10/14/16 Social Economist Relationship Specialty Start Date End Date Husam Yan MD [address] [place], [place] [id number] PCP - General Family Practice 10/14/16 Social Economist Relationship Specialty Start Date End Date Husam Yan MD [address] [place] [address] PCP - General Family Practice 10/14/16 Social Economist Relationship Specialty Start Date End Date Husam Yan MD [address] [place] [address] PCP - General Family Medicine 10/14/16 Social Economist Relationship Specialty Start Date End Date Husam Yan MD [address] [place] [address] PCP - General Family Medicine 10/14/16 Social Economist Relationship Specialty Start Date End Date Husam Yan MD [address] [place] [address] PCP - General Family Medicine 10/14/16 Social Economist Relationship Specialty Start Date End Date Husam Yan MD [address] [place] [address] PCP - General Family Medicine 10/14/16 Social Economist Relationship Specialty Start Date End Date Husam Yan MD [address] [place] [address] PCP - General Family Medicine 10/14/16 Social Economist Relationship Specialty Start Date End Date Husam Yan MD [address] [place] [address] PCP - General Family Medicine 10/14/16 Social Economist Relationship Specialty Start Date End Date Husam Yan MD [address] [place] [address] PCP - General Family Medicine 10/14/16 Social Economist Relationship Specialty Start Date End Date Husam Yan MD [address] [place] [address] PCP - General Family Medicine 10/14/16 Social Economist Relationship Specialty Start Date End Date Husam Yan MD [address] [place] [address] PCP - General Family Medicine 10/14/16 Social Economist Relationship Specialty Start Date End Date Husam Yan MD [address] [place] [address] PCP - General Family Medicine 10/14/16 Social Economist Relationship Specialty Start Date End Date Husam Yan MD [address] [place] [address] PCP - General Family Medicine 10/14/16 Social Economist Relationship Specialty Start Date End Date Husam Yan MD [address] [place] [address] PCP - General Family Medicine 10/14/16 Social Economist Relationship Specialty Start Date End Date Husam Yan MD [address] [place] [address] PCP - General Family Medicine 10/14/16 Social Economist Relationship Specialty Start Date End Date Husam Yan MD [address] [place] [address] PCP - General Family Medicine 10/14/16 Social Economist Relationship Specialty Start Date End Date Husam Yan MD [address] [place] [address] PCP - General Family Medicine 10/14/16 Social Economist Relationship Specialty Start Date End Date Husam Yan MD [address] [place] [address] PCP - General Family Medicine 10/14/16 Social Economist Relationship Specialty Start Date End Date Husam Yan MD [address] [place] [address] PCP - General Family Medicine 10/14/16 Social Economist Relationship Specialty Start Date End Date Husam Yan MD [address] [place] [address] PCP - General Family Medicine 10/14/16 Social Economist Relationship Specialty Start Date End Date Husam Yan MD [address] [place] [address] PCP - General Family Medicine 10/14/16 Social Economist Relationship Specialty Start Date End Date Husam Yan MD [address] [place] [address] PCP - General Family Medicine 10/14/16 Social Economist Relationship Specialty Start Date End Date Husam Yan MD [address] [place] [address] PCP - General Family Medicine 10/14/16 PodlogarLauren APRN.CNP [address] [place] [address] [employer] Family Medicine 04/28/24 Social Economist Relationship Specialty Start Date End Date Husam Yan MD [address] [place] [address] PCP - General Family Medicine 10/14/16 Podlogar, Lauren, HVAC ENGINEER.PRINTING GRAY CLOTH TENDER [address] [place] [address] [facility] 04/28/24 Social Economist Relationship Specialty Start Date End Date Husam Yan MD [address] [place], [place] [address] PCP - General Family Medicine 10/14/16 Podlogar, Lauren, HVAC ENGINEER.PRINTING GRAY CLOTH TENDER [address] [place] [address] [facility] 04/28/24 Team Status: Inactive Member Role Status [...] 2024 End: June 06, 2024 Meredith Guevara MANAGER MASSAGE DEPARTMENT, MANAGER MASSAGE DEPARTMENT-C Attending Provider Active Start: June 06, 2024 [...] Nando SHERWOOD MD Attending Provider Active Start: May 13th, 2025 Goals (unrecognized section and content) Goals may be documented in a n alternate section No data available for this section (unrecognized sect ion and content) No Status Records FoundNo Status Records FoundNo Status Records Found INFORMATION SOURCE (unrecogn ized section and content) DATE CREATED AUTHOR 09/16/2023 [facility] (ID) DATE CREATED AUTHOR AUTHOR'S ORGANIZ ATION 07/13/2024 [facility] DATE CREATED AUTHOR AUTHOR'S ORGANIZ ATION 11/06/2024 [facility] FOR RECORDS PERTAINING TO PATIENTS WHO [...] BE BASED ON THE PRIMARY CLINICAL RECORDS. [employer] provides no warranty or guarantee of the accuracy or completeness of information in this document.
--- NOTE | 2024-11-08 21:20 | RAD_ITS ---
PROCEDURE: FOOT MIN 3 VIEWS 11/08/2024 REASON FOR EXAM: INJURY Initial encounter TECHNIQUE: FOOT MIN 3 VIEWS COMPARISON: No comparison left foot radiographs FINDINGS: Bones: Patchy osteoporotic changes. Joints: Scattered narrowing of joint spaces including most of the MTP joints. Osteolytic appearance of the bases of the 4th and 5th digit proximal phalanges Soft tissues: Dense atherosclerotic calcification of the arteries of the foot from proximal to distal Other: RAD/Foot min 3 Views IMPRESSION: No acute fracture is appreciated. Other abnormalities as detailed above. Reading Location: [facility]
[2024-11-08 21:36] VITALS: BP 138/74; PULSE 70; RESP 18; O2SAT 98
[2024-11-08 22:11] VITALS: BP 138/74; PULSE 70; RESP 18; TEMP 36.4; O2SAT 98
[2024-11-08 23:00] VITALS: BP 101/38; PULSE 51; O2SAT 94
[2024-11-09 01:00] VITALS: BP 110/48; PULSE 52; O2SAT 97
[2024-11-09 03:00] VITALS: BP 126/52; PULSE 52; O2SAT 96
== END 2024-11-09 03:26 | disposition home or self-care (01) ==
PROVIDERS: Emergency Provider Emergency Medicine; PCP Internal Medicine; Referring Provider Emergency Medicine; Visit Provider Emergency Medicine
DX: S09.90XA Unspecified injury of head, initial encounter (principal); N18.6 End stage renal disease; Z89.511 Acquired absence of right leg below knee; I50.32 Chronic diastolic (congestive) heart failure; I48.0 Paroxysmal atrial fibrillation; E11.22 Type 2 diabetes mellitus with diabetic chronic kidney disease; S61.411A Laceration without foreign body of right hand, initial encounter; W05.0XXA Fall from non-moving wheelchair, initial encounter; S01.21XA Laceration without foreign body of nose, initial encounter; E78.5 Hyperlipidemia, unspecified; Z99.2 Dependence on renal dialysis; Z79.01 Long term (current) use of anticoagulants; Y92.129 Unspecified place in nursing home as the place of occurrence of the external cause
CPT/HCPCS: 70450; 73630; 99285

== ENCOUNTER → 2024-11-12 05:00 | Outpatient (REF) | payer MEDICARE, SELFPAY ==
[2024-11-12 09:15] LABS: Cholesterol 112 mg/dL (<=200); High Density Lipoprotein 54 mg/dL; Low Density Lipoprotein Calc. 53 mg/dL; Triglycerides 23 mg/dL; Very Low Density Lipoprotein 5 mg/dL (5-40); cholesterol:hdl ratio screen 2.07
== END ==
LOC: OLS.WHLEAS 05:00
PROVIDERS: PCP Internal Medicine; Visit Provider Internal Medicine
DX: R41.82 Altered mental status, unspecified (principal); M86.171 Other acute osteomyelitis, right ankle and foot; M62.561 Muscle wasting and atrophy, not elsewhere classified, right lower leg
CPT/HCPCS: 36415; 80061

== ENCOUNTER 2024-11-22 08:44 | Emergency (ER) | payer MEDICARE, MEDICAID, SELFPAY ==
[2024-11-22] VITALS (18 sets, daily range): BP systolic 92–145; BP diastolic 49–112; PULSE 28–50; RESP 14–22; TEMP 36.6; O2SAT 95–99; BMI 34.7
--- NOTE | 2024-11-22 09:04 | EX.ED.DYSGE1 ---
HPI History of Present Illness Chief Complaint: Palpitations Informant: patient Onset/Context/Timing Onset: Today Context: Gradual Onset Timing: Continuous Worsened by: Nothing Relieved by: Nothing Narrative Narrative: Patient presents with palpitations that were noticed today. Patient was at dialysis where they noted his heart rate was in the 30s. Patient gets dialysis Tuesdays, , and Saturdays. Patient denies any chest pain. Patient denies any nausea or vomiting. Patient denies any shortness of breath or cough. Patient denies any lightheadedness or dizziness. Patient states he feels fine. Patient knows where he is at. Patient knows it is 2024. Patient has it is November. 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 of [place] artery of extremity with ulceration ESRD (end stage renal disease) Type 2 diabetes mellitus with foot ulcer Diabetes mellitus with diabetic 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 Pre-op testing Loose, teeth Wears glasses Cancer Dialysis patient Kidney disease Non-smoker Edema Syncope Chronic diastolic (congestive) heart failure (04/18/20) Paroxysmal atrial fibrillation Sinus bradycardia Type 2 diabetes mellitus Hyperkalemia Swelling of both lower extremities HLD (hyperlipidemia) Left bundle-branch block 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 Abnormal electrocardiogram Home Medications ?Medication ?Instructions ?Recorded ?Last Taken ?Type aspirin 81 mg tablet,delayed 81 mg PO DAILY heart health 07/01/20 08/28/24 History release (Adult Aspirin Regimen) torsemide 100 mg tablet 100 mg PO MOWEFR water pill 04/14/24 08/27/24 History insulin glargine 100 unit/mL (3 20 unit (0.2 mL) subcut DINNER 04/24/24 08/28/24 Rx mL) subcutaneous pen diabetes 30 days #0 mL insulin lispro 100 unit/mL See Protocol subcut ACHS dm 05/04/24 08/28/24 History subcutaneous pen (Humalog KwikPen (U-100) Insulin) sennosides 8.6 mg-docusate sodium 1 tab-cap PO BID PRN PRN 06/04/24 06/05/24 History 50 mg tablet (Stimulant Laxative Constipation Plus) cholecalciferol (vitamin D3) 125 125 mcg PO DAILY SUPPLEMENT 07/13/24 08/28/24 History mcg (5,000 unit) capsule insulin lispro 100 unit/mL 10 unit subcut TID DIABETES 07/13/24 08/28/24 History subcutaneous pen albuterol sulfate 2.5 mg/3 mL 2.5 mg (3 mL) inhalation Q2H PRN 07/20/24 Unknown Rx (0.083 %) solution for nebulization PRN SOB &/OR WHEEZING #0 mL benzocaine 15 mg-menthol 3.6 mg 2 mariaa mucous membrane Q2H PRN PRN 07/20/24 Unknown Rx lozenges (Sore Throat (benzocaine sore throat #0 ea with menthol)) menthol 0.44 %-zinc oxide 20.6 % 1 applic topical BID SKIN 07/20/24 08/28/24 Rx topical ointment (Calmoseptine) IRRITATION #0 grams nut.tx.gluc.intol,lac-free,soy 240 ml PO DAILY PRN SUPPLEMENT 10/29/24 Unknown History (Glucerna oral liquid) apixaban 2.5 mg tablet (Eliquis) 2.5 mg PO BID #180 tabs 10/30/24 Unknown Rx acetaminophen 500 mg capsule 1,000 mg PO Q8H PRN PRN fever or 11/22/24 Unknown History pain Allergy/AdvReac Type Severity Reaction Status Date / Time pioglitazone (From Actos) Allergy fatigue Verified 11/22/24 08:49 simvastatin (From Zocor) Allergy myalgia Verified 11/22/24 08:49 sitagliptin (From Januvia) Allergy unknown Verified 11/22/24 08:49 Family History Mother Hypertension Father Diabetes COPD (chronic obstructive pulmonary disease) Surgical History Hx of amputation History of incision and drainage Hx of foot surgery History of cataract extraction History of ligation of vein History of arteriovenostomy for renal dialysis History of inguinal hernia repair History of appendectomy Social History housing: detention current occupational status: retired Smoking Status: Never smoker alcohol intake: never substance use type: does not use caffeine: Yes Type: coffee Number of servings: 1 what type of physical activity do you participate in: none seatbelt use: always do you feel safe at home: Yes ROS ROS ED Constitutional Constitutional ED: Denies chills or fever(s) Eyes Eyes: Denies blurry vision or change in vision ENT ENT ED: Denies rhinorrhea or sore throat Cardiovascular Cardiovascular: Denies chest pain or palpitations Respiratory/Chest Respiratory/Chest: Denies cough or dyspnea Gastrointestinal Gastrointestinal: Denies nausea or vomiting Genitourinary Genitourinary ED: Denies dysuria or hematuria Musculoskeletal Musculoskeletal: Denies back pain or neck pain Integumentary Denies abscess or rash Neurologic Neurologic: Denies headache(s) or weakness Allergic/Immunologic Allergic/Immunologic ED: Denies mouth swelling or urticaria EXAM Physical Exam Const Vital Signs: 11/22/24 08:46 11/22/24 09:19 11/22/24 09:45 Temperature 97.8 F Temperature Source Oral Pulse Rate 30 L 29 L Respiratory Rate 17 16 Blood Pressure 133/49 H 123/112 H Blood Pressure Mean 77 115 Pulse Ox 95 98 Oxygen Delivery Method Room Air Room Air 11/22/24 10:00 11/22/24 11:00 11/22/24 11:31 Temperature Temperature Source Pulse Rate 28 L 30 L Respiratory Rate 16 16 Blood Pressure 138/52 H Blood Pressure Mean 80 Pulse Ox 98 98 Oxygen Delivery Method Room Air 11/22/24 12:00 11/22/24 13:00 11/22/24 14:00 Temperature Temperature Source Pulse Rate 28 L 41 L 43 L Respiratory Rate 16 22 H 16 Blood Pressure 120/100 H Blood Pressure Mean 106 Pulse Ox 95 98 96 Oxygen Delivery Method Room Air Room Air 11/22/24 15:00 11/22/24 16:00 11/22/24 17:00 Temperature Temperature Source Pulse Rate 29 L 50 L 36 L Respiratory Rate 16 14 16 Blood Pressure 132/74 H 119/95 H 92/50 L Blood Pressure Mean 93 103 64 Pulse Ox 99 99 95 Oxygen Delivery Method 11/22/24 18:00 11/22/24 19:00 11/22/24 20:00 Temperature Temperature Source Pulse Rate 42 L 30 L 29 L Respiratory Rate 16 18 20 H Blood Pressure 127/103 H 115/50 L 99/85 H Blood Pressure Mean 111 71 89 Pulse Ox 95 96 96 Oxygen Delivery Method Room Air Room Air 11/22/24 21:00 11/22/24 21:07 11/22/24 22:00 Temperature 97.8 F Temperature Source Pulse Rate 29 L 29 L 28 L Respiratory Rate 19 H 19 H 17 Blood Pressure 138/111 H 138/111 H 145/74 H Blood Pressure Mean 120 120 97 Pulse Ox 98 98 96 Oxygen Delivery Method Room Air Room Air 11/22/24 23:00 11/23/24 00:00 11/23/24 01:00 Temperature Temperature Source Pulse Rate 29 L 29 L 29 L Respiratory Rate 18 18 20 H Blood Pressure 145/105 H 155/48 H 120/40 L Blood Pressure Mean 118 83 66 Pulse Ox 96 95 94 Oxygen Delivery Method Room Air Room Air 11/23/24 02:00 Temperature Temperature Source Pulse Rate 30 L Respiratory Rate 18 Blood Pressure 120/55 L Blood Pressure Mean 76 Pulse Ox 96 Oxygen Delivery Method Room Air Positive well nourished and well developed General Appearance ED: well developed and NAD HEENT Reports moist mucous membranes Neck supple and no JVD Resp normal respiratory effort and clear to auscultation bilaterally Cardio Rate: bradycardia Rhythm: abnormal rhythm irregularly irregular GI non-tender and non-distended Palpation: soft Neuro oriented x3, CN's II-XII intact bilaterally and no sensory deficits noted Sensorium / Orientation: alert Motor Exam: strength 5/5 throughout Psych mental status grossly normal MDM MDM MDM Narrative Medical decision making narrative: Differential diagnosis includes cardiac dysrhythmia, cardiac ischemia, pneumonia, bronchitis, electrolyte abnormality, and congestive heart failure. EKG will be obtained to assess for cardiac dysrhythmia and cardiac ischemia. Chest x-ray will be obtained to assess for pneumonia, bronchitis, congestive heart failure. CBC will be obtained to assess for leukocytosis and anemia. Basic metabolic profile will be obtained to assess for electrolyte abnormality and renal function. High-sensitivity troponin will be obtained to assess for cardiac ischemia. 2-hour repeat high-sensitivity troponin will be obtained to assess for ongoing cardiac ischemia. BNP will be obtained to assess for congestive heart failure. PT with INR and PTT will be obtained to assess for coagulopathy. History & Record Review Additional record(s) reviewed:: Prior outpatient record, Prior ED visit and Prior labs Lab Data Attestation: I reviewed the patient's lab results. Lab results narrative: CBC was reviewed. There is a mild anemia with a hemoglobin of 10.9 and hematocrit 34.9. Platelets were normal. Basic metabolic profile was reviewed. Sodium was slightly low at 130 and chloride was slightly low at 88. Potassium was slightly elevated at 5.2. BUN was elevated 81 and creatinine was 6.55. Serum magnesium level was reviewed and was slightly elevated 2.6. Initial high-sensitivity troponin was reviewed and was elevated at 129. 2-hour repeat high-sensitivity troponin was reviewed and was elevated at 127. [place] [address]. Labs: Laboratory Results - last 24 hr 11/22/24 11/22/24 08:47 10:45 WBC 10.0 RBC 3.87 L Hgb 10.9 L Hct 34.9 L MCV 90.2 MCH 28.2 MCHC 31.2 L RDW Std Deviation 53.6 H RDW Coeff of Frances 16.4 H Plt Count 161 MPV 11.7 Immature Gran % (Auto) 0.500 Neut % (Auto) 68.3 Lymph % (Auto) 19.3 [place] % (Auto) 8.8 Eos % (Auto) 2.6 Baso % (Auto) 0.5 Absolute Neuts (auto) 6.8 Absolute Lymphs (auto) 1.93 Nucleated RBC % 0 PT 16.5 H INR 1.3 APTT 34.7 Sodium 130 L Potassium 5.2 H Chloride 88 L Carbon Dioxide 25.3 Anion Gap 17 H BUN 81 H Creatinine 6.55 H Estim Creat Clear Calc 8.98 L* Est GFR (MDRD) Non-Af 8 L BUN/Creatinine Ratio 12.4 Glucose 249 H Calcium 8.8 Magnesium 2.6 H Troponin T High Sens 129 H* Troponin T Hi Sens 2 Hr 127 H* [place] [address] H Radiography Diagnostic Testing: Clinical Impression(s) from Imaging Studies Chest X-Ray 11/22/24 09:20 IMPRESSION: Lungs are markedly hypoinflated with mild bibasilar compressive atelectasis seen. No evidence of pulmonary edema. No focal infiltrate is seen. No pleural effusion or pneumothorax is seen. The cardiomediastinal silhouette is within the normal range, and unchanged. No acute osseous change is evident. Reading Location: [place] [id number] Portable 1 view chest x-ray was obtained. On my independent interpretation, lung meyers show bibasilar atelectasis and poor respiratory effort. There is normal cardiac silhouette. Bony thorax is normal. There is no acute process noted. Radiologist also interpreted the x-ray and agrees. EKG Initial EKG: Attestation: I personally reviewed and interpreted this EKG as follows: Interpretation: Atrial Fibrillation (30) and Non-Specific ST Changes Comments: EKG was obtained. On my independent interpretation, it shows atrial fibrillation/flutter with rate of 30. QRS interval was normal at 110 ms. QTc interval was normal at 4 and 60 ms. [place] is normal at 10. There are no acute ST or T wave changes noted. This was unchanged compared to previous EKG dated 07/16/2024 Prior EKG tracings: available for review Prior: Unchanged Follow-up EKG: Attestation: I personally reviewed and interpreted this EKG as follows: Interpretation: Atrial Fibrillation (29) Comments: Repeat EKG was obtained. My independent interpretation, shows atrial fibrillation with a rate of 29. QRS interval was normal at 100 ms. QTc interval was normal at 412 ms. There is left axis deviation -24. This was unchanged compared to previous EKG. Prior EKG tracings: available for review Prior: Unchanged Management Discussion w/another healthcare provider: Hospitalist and Vp Strategy (Dr. Scott) Treatment and Re-Evaluation :: Patient was given aspirin. Patient is hemodynamically stable. Patient remained asymptomatic here in the emergency department. Case was discussed with Dr. Scott from cardiology. He was in to evaluate the patient. He discussed options of pacemaker with the patient and family. Because of where his dialysis catheters are placed, he recommended that the patient be transferred to a facility that can put a Micra pacemaker in through an inguinal approach. Family initially requested to be transferred to [facility]. Case was discussed with hospitalist there. They do not do that procedure at that facility. They recommended [place] or [facility]. Patient and family understand and are agreeable with the plan. All questions were answered. While waiting for transfer acceptance, patient had episode where he had a short run of tachycardia. Because of this, repeat EKG was obtained. This was unchanged compared to previous EKG. Case was discussed with Dr. Davenport at [facility]. She recommended discussing case with cardiology. Cane Burner was paged. Case was discussed with Dr. Brown from cardiology from [facility] He excepted the patient to be transferred to the EP service. Patient and family understood and were agreeable with the plan. All questions were answered. Discharge Plan Triage Chief Complaint: Palpitations ED Provider: Earl Genao Dx/Rx/DC Orders Clinical Impression: Bradycardia, Chronic kidney disease, stage V requiring chronic dialysis, Atrial fibrillation Prescriptions: No Action torsemide 100 mg tablet 100 mg PO MOWEFR Patient Comments: on non-dialysis days insulin glargine 100 unit/mL (3 mL) insulin pen 20 unit SC DINNER 30 Days Qty: 0 0RF Rx Instructions: Hold if glucose less than 130 mg/dl cholecalciferol (vitamin D3) 125 mcg (5,000 unit) capsule 125 mcg PO DAILY insulin lispro 100 unit/mL insulin pen 10 unit subcut TID Patient Comments: BEFORE MEALS albuterol sulfate 2.5 mg /3 mL (0.083 %) Solution For Nebulization 2.5 mg inhalation Q2H PRN PRN (Reason: SOB &/OR WHEEZING) Qty: 0 0RF Sore Throat (benzocaine-menth) 15-3.6 mg Lozenge 2 mariaa mucous membrane Q2H PRN PRN (Reason: sore throat) Qty: 0 0RF menthol-zinc oxide [Calmoseptine] 0.44-20.6 % Ointment 1 applic topical BID Qty: 0 0RF Protocol: *Topical Application Instructions APPLICATION INSTRUCTIONS: apply to buttocks acetaminophen 500 mg capsule 1,000 mg PO Q8H PRN PRN (Reason: fever or pain) insulin lispro [Humalog KwikPen Insulin] 100 unit/mL Insulin Pen See Protocol subcut ACHS Protocol: 3. Sliding Scale Insulin Med Dosing Condition: 150-189 mg/dl = 1 unit Condition: 190-229 mg/dl = 2 units Condition: 230-269 mg/dl = 3 units Condition: 270-309 mg/dl = 4 units Condition: 310-349 mg/dl = 5 units Condition: 350-399 mg/dl = 6 units Condition: 400-449 mg/dl = 7 units Condition: Greater than 449 call physician Protocol Text: Suggested for: - Patients on Total Daily Insulin Dose of 37-55 units - Obese, infected, or steroid patients MEDIUM DOSING ALGORITHIM Rx Instructions: 150-189 1 unit,190-229 2 unit, 230-269 3 unit, 270-309 4 unit, 310-349 5 unit, 350-399 6 unit, 400-449 7 unit, 450-500 call physicion sennosides-docusate sodium [Stimulant Laxative Plus] 8.6-50 mg Tablet 1 tab-cap PO BID PRN PRN (Reason: Constipation) Glucerna Liquid 240 ml PO DAILY PRN (Reason: SUPPLEMENT) aspirin [Adult Aspirin Regimen] 81 mg tablet,delayed release (DR/EC) 81 mg PO DAILY Eliquis 2.5 mg tablet 2.5 mg PO BID Qty: 180 3RF Primary Care Provider: Nando Wiggins Referrals: Nando Wiggins MD [Primary Care Provider] - Print Language: Puerto Rican Disposition Disposition: Acute Care Hospital Discharge Location: [facility] Discharge Date/Time: 11/23/24 03:22
--- NOTE | 2024-11-22 09:19 | EKG12_ITS ---
Test Reason : RHYTHM CHANGE Blood Pressure : */* mmHG Vent. Rate : 29 BPM Atrial Rate : * BPM P-R Int : * ms QRS Dur : 100 ms QT Int : 592 ms P-R-T Axes : * -24 63 degrees QTcB Int : 411 ms Critical Test Result: Low HR Atrial fibrillation Abnormal ECG Confirmed by ADRI AVILA, PALMA ([id number]), field map editor GEE DUNCAN ([id number]) on 11/26/2024 10:24:47 AM Referred By: Confirmed By: PALMA RUSH MD
--- NOTE | 2024-11-22 09:20 | RAD_ITS ---
PROCEDURE: CHEST 1 VIEW (PORTABLE) 11/22/2024 REASON FOR EXAM: CHEST PAIN TECHNIQUE: Frontal view of the chest. COMPARISON: Chest x-ray of 07/13/2024. RAD/Chest 1 View (Portable) IMPRESSION: Lungs are markedly hypoinflated with mild bibasilar compressive atelectasis see n. No evidence of pulmonary edema. No focal infiltrate is seen. No pleural effusion or pneumothorax is seen. The cardiomediastinal silhouette is within the normal range, and unchanged. No acute osseous change is evident. Reading Location: [place] [id number]
[2024-11-22 09:38] LABS: Hematocrit 34.9 % (40-54); Hemoglobin 10.9 g/dL (13.0-16.5); Immature Granulocytes Count 0.050 X10^3/uL (0.0-0.0); Mean Corp Hgb Conc 31.2 g/dL (32-36); Mean Corpuscular Volume 90.2 fL (80-94); Mean Platelet Vol. 11.7 fl (6.2-12.0); NRBC Flagged by Analyzer 0 % (0-5); Platelet Count 161 K/mm3 (150-450); RBC Distribution Width CV 16.4 % (11.6-14.6); RBC Distribution Width SD 53.6 fl (35.1-43.9); Red Blood Count 3.87 M/mm3 (4.6-6.2); White Blood Count 10.0 K/mm3 (4.4-11.0)
[2024-11-22 09:56] LABS: Anion Gap 17 (5-15); BUN 81 mg/dL (4-19); BUN/Creat Ratio 12.4 RATIO (10-20); Calcium,Total 8.8 mg/dL (7.6-11.0); Carbon Dioxide 25.3 mmol/L (21.0-32.0); Chloride 88 mmol/L (98-108); Estimated Creatinine Clearance 8.98 ml/min (50-250); Glucose 249 mg/dL (70-99); Magnesium 2.6 mg/dL (1.5-2.2); Potassium 5.2 mmol/L (3.3-5.1)
[2024-11-22 10:07] LABS: Partial Thromboplast Time 34.7 Seconds (24.1-36.2); Prothrombin Time (Protime)PT. 16.5 SECONDS (11.7-14.9)
[2024-11-22 10:18] LABS: Pro- Brain NATRIURETIC PEPTIDE 14773 pg/mL (<=1800); Troponin T High Sensitivity 129 ng/L (<=22)
[2024-11-22 11:44] LABS: Troponin T High Sens 2 HR 127 ng/L (<=22)
--- NOTE | 2024-11-22 11:59 | HP.PCM.HOS_ITS ---
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 Wound, open, foot End stage renal disease MRSA (methicillin resistant staph aureus) culture positive Cutaneous abscess of right foot Diabetic infection of right foot Acute hyperkalemia Open wound Lives in senior care Dietary restriction History of stress test History of echocardiogram Cardiology follow-up encounter History of atrial fibrillation Insulin dependent diabetes mellitus Other specified peripheral vascular diseases Type 2 diabetes mellitus with diabetic polyneuropathy Atherosclerosis of [place] artery of extremity with ulceration ESRD (end stage renal disease) Type 2 diabetes mellitus with foot ulcer Diabetes mellitus with diabetic 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 Pre-op testing Loose, teeth Wears glasses Cancer Dialysis patient Kidney disease Non-smoker Edema Syncope Chronic diastolic (congestive) heart failure (04/18/20) Paroxysmal atrial fibrillation Sinus bradycardia Type 2 diabetes mellitus Hyperkalemia Swelling of both lower extremities HLD (hyperlipidemia) Left bundle-branch block 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 Abnormal electrocardiogram Home Medications ?Medication ?Instructions ?Recorded ?Last Taken ?Type aspirin 81 mg tablet,delayed 81 mg PO DAILY heart heal th 07/01/20 08/28/24 History release (Adult Aspirin Regimen) torsemide 100 mg tablet 100 mg PO MOWEFR water pill 04/14/24 08/27/24 History insulin glargine 100 unit/mL (3 20 unit (0.2 mL) subcu t DINNER 04/24/24 08/28/24 Rx mL) subcutaneous pen diabetes 30 days #0 mL insulin lispro 100 unit/mL See Protocol subcut ACHS dm 05/04/24 08/28/24 History subcutaneous pen (Humalog KwikPen (U-100) Insulin) sennosides 8.6 mg-docusate sodium 1 tab-cap PO BID PRN PRN 06/04/24 06/05/24 History 50 mg tablet (Stimulant Laxative Constipation Plus) cholecalciferol (vitamin D3) 125 125 mcg PO DAILY SUPP LEMENT 07/13/24 08/28/24 History mcg (5,000 unit) capsule insulin lispro 100 unit/mL 10 unit subcut TID DIABETES 07/13/24 08/28/24 History subcutaneous pen albuterol sulfate 2.5 mg/3 mL 2.5 mg (3 mL) inhalation Q2H PRN 07/20/24 Unknown Rx (0.083 %) solution for nebulization PRN SOB &/OR WHEEZ ING #0 mL benzocaine 15 mg-menthol 3.6 mg 2 mariaa mucous membrane Q2H PRN PRN 07/20/24 Unknown Rx lozenges (Sore Throat (benzocaine sore throat #0 ea with menthol)) menthol 0.44 %-zinc oxide 20.6 % 1 applic topical BID SKIN 07/20/24 08/28/24 Rx topical ointment (Calmoseptine) IRRITATION #0 grams nut.tx.gluc.intol,lac-free,soy 240 ml PO DAILY PRN SUP PLEMENT 10/29/24 Unknown History (Glucerna oral liquid) apixaban 2.5 mg tablet (Eliquis) 2.5 mg PO BID #180 ta bs 10/30/24 Unknown Rx acetaminophen 500 mg capsule 1,000 mg PO Q8H PRN PRN f ever or 11/22/24 Unknown History pain Allergy/AdvReac Type Severity Reaction Status Date / Time pioglitazone (From Actos) Allergy fatigue Verified 11/22/24 08:49 simvastatin (From Zocor) Allergy myalgia Verified 11/22/24 08:49 sitagliptin (From Januvia) Allergy unknown Verified 11/22/24 08:49 Family History Mother Hypertension Father Diabetes COPD (chronic obstructive pulmonary disease) Surgical History Hx of amputation History of incision and drainage Hx of foot surgery History of cataract extraction History of ligation of vein History of arteriovenostomy for renal dialysis History of inguinal hernia repair History of appendectomy Social History housing: senior care current occupational status: retired Smoking Status: Never smoker alcohol intake: never substance use type: does not use caffeine: Yes Type: coffee Number of servings: 1 what type of physical activity do you participate in: none seatbelt use: always do you feel safe at home: Yes Vital Signs Vital Signs Vital Signs: 11/22/24 08:46 11/22/24 09:19 11/22/24 09:45 Temperature 97.8 F Temperature Source Oral Pulse Rate 30 L 29 L Respiratory Rate 17 16 Blood Pressure 133/49 H 123/112 H Blood Pressure Mean 77 115 Pulse Ox 95 98 Oxygen Delivery Method Room Air Room Air 11/22/24 10:00 11/22/24 11:00 11/22/24 11:31 Temperature Temperature Source Pulse Rate 28 L 30 L Respiratory Rate 16 16 Blood Pressure 138/52 H Blood Pressure Mean 80 Pulse Ox 98 98 Oxygen Delivery Method Room Air Weight Weight: 100.6 kg Body Mass Index (BMI) 34.7 Results Lab / Micro Data 11/22/24 08:47 11/22/24 08:47 Labs: Laboratory Results - last 24 hr 11/22/24 08:47: WBC 10.0, RBC 3.87 L, Hgb 10.9 L, Hct 34.9 L, MCV 90.2, MCH 28.2, MCHC 31.2 L, RDW Std Deviation 53.6 H, RDW Coeff of Frances 16.4 H, Plt Count 161, MPV 11.7, Immature Gran % (Auto) 0.500, Neut % (Auto) 68.3, Lymph % (Auto) 19.3, [place] % (Auto) 8.8, Eos % (Auto) 2.6, Baso % (Auto) 0.5, Absolute Neuts (auto) 6.8, Absolute Lymphs (auto) 1.93, Nucleated RBC % 0, PT 16.5 H, INR 1.3, APTT 34.7, Sodium 130 L, Potassium 5.2 H, Chloride 88 L, Carbon Dioxide 25.3, A nion Gap 17 H, BUN 81 H, Creatinine 6.55 H, Estim Creat Clear Calc 8.98 L*, Est GFR (MDRD) Non-Af 8 L, BUN/Creatinine Ratio 12.4, Glucose 249 H, Calcium 8.8, M agnesium 2.6 H, Troponin T High Sens 129 H*, [place] [address] H 11/22/24 10:45: Troponin T Hi Sens 2 Hr 127 H* Imaging Radiology Impression Chest X-Ray 11/22/24 09:20 IMPRESSION: Lungs are markedly hypoinflated with mild bibasilar compressive atelectasis seen. No evidence of pulmonary edema. No focal infiltrate is seen. No pleural effusion or pneumothorax is seen. The cardiomediastinal silhouette is within the normal range, and unchanged. No acute osseous change is evident. Reading Location: [facility] Assessment & Plan Assessment/Plan PLAN: Plan #ESRD on HD -Consult nephrology - #Type 2 diabetes mellitus -a # History of PAD # History of chronic heart failure preserved ejection fraction -
--- NOTE | 2024-11-22 14:28 | PCA ---
CC REACHED OUT TO [facility], THE DIRECTOR OF LAND ACQUISITION EXCEPT, JUST WAITING ON THE PAGE OUT TO MEDICINE TO BE RETURNED AND IF THEIR MEDICINE DR ACCEPTS [facility] WILL TAKE HIM
--- NOTE | 2024-11-22 15:41 | ED.RN ---
this rn and manager aerospace go in to room to atttempt to check and change patient at this time. pt declines the need for changing brief at this time. pt moved up in bed at this time
--- NOTE | 2024-11-22 16:02 | EKG12_ITS ---
Test Reason : BRADYCARDIA Blood Pressure : */* mmHG Vent. Rate : 30 BPM Atrial Rate : * BPM P-R Int : * ms QRS Dur : 110 ms QT Int : 590 ms P-R-T Axes : * 10 73 degrees QTcB Int : 416 ms Critical Test Result: Low HR Atrial fibrillation Cannot rule out Anterior infarct (cited on or before 16-Jul-2024) Abnormal ECG Confirmed by ADRI AVILA, PALMA ([id number]), newspaper editor GEE DUNCAN ([id number]) on 11/26/2024 10:24:29 AM Referred By: Confirmed By: PALMA RUSH MD
--- NOTE | 2024-11-22 16:59 | PCA ---
ACCEPTED @ [facility]@ [id number] JUST WAITING ON A BED ASSIGNMENT
--- NOTE | 2024-11-22 18:49 | PCA ---
Rosy from [facility] transferline called. PT was accepted at [id number]. Brown/ n2n [phone]. Local squad Physician's was called. Brenda with dispatch gave a 4-5 hour eta. Physician's to try and outsource.
--- NOTE | 2024-11-22 19:24 | ED.RN ---
this rn attempts to call report to [id number]. this rn is placed on hold and told that they do not typically take patients on that floor with heart rates consitently in the 20s. nurse to call back with updated bed assignment
--- NOTE | 2024-11-22 21:14 | PCA ---
Physician's dispatch called and aware of pt low heart rate.
[2024-11-23] VITALS: BP 155/48; PULSE 29; RESP 18; O2SAT 95
[2024-11-23 01:00] VITALS: BP 120/40; PULSE 29; RESP 20; O2SAT 94
[2024-11-23 02:00] VITALS: BP 120/55; PULSE 30; RESP 18; O2SAT 96
== END 2024-11-23 03:22 | disposition short-term general hospital (02) ==
PROVIDERS: Emergency Provider Emergency Medicine; PCP Internal Medicine; Visit Provider Emergency Medicine
DX: R00.1 Bradycardia, unspecified (principal); N18.6 End stage renal disease; I50.32 Chronic diastolic (congestive) heart failure; I48.91 Unspecified atrial fibrillation; E11.42 Type 2 diabetes mellitus with diabetic polyneuropathy; E11.22 Type 2 diabetes mellitus with diabetic chronic kidney disease; E78.5 Hyperlipidemia, unspecified; D64.9 Anemia, unspecified
CPT/HCPCS: 71045; 80048; 83735; 83880; 84484; 85025; 85610; 85730; 93005; 99285; A4216

== ENCOUNTER → 2024-12-12 05:00 | Outpatient (REF) | payer MEDICARE, SELFPAY ==
--- OUTSIDE RECORDS SUMMARY | 2024-12-12 04:09 | XMS RPT_ITS | CCD ---
Author Organization [facility] Providers Care Backshoe Person Name Role Phone Patricia RN, Alanna Jacobson Unavailable Unavailable Carmen Hurt Unavailable Unavailable ISABEL Kraus, Bernarda Raymundo Unavailable Unavailabl desiree Gomez RN, Alanna A Unavailable Unavailable Carmen Hurt Unavailable Unavailable DeFinis, Harumi Y Unavailable Unavailable Carmen Hurt Unavailable Unavailable Husam Yan MD Primary Care Provider Dr. Jean Yan Primary Care Provider Dr. Jean Yan Referring Provider EMILY Foley Attending Provider Dr. Randal Macias Attending Provider Dr. Randal Macias Referring Provider Dr. Randal Macias Other Provider Husam Yan MD Primary Care Provider Husam Yan MD Primary Care Provider Husam Yan MD Primary Care Provider SCHUYLER ARREAGA MD, JEAN PIERRE Attending Unavailkavon SWANSON MD, JERMAINE Consulting Unavailable ANITA AVILA, GARY Consulting Unavailable Husam Yan MD Primary Care Provider Podlogar CHAIR INSTALLER.DIRECT SUPPORT PROFESSIONAL, Lauren Unavailable Dr. Jean Yan MD Primary Care Provider Rosalie AVILA, Nando Attending Provider Unavailkavon Ruelas DPM, Dr. Nunes Attending Provider [phone] Dr. Des Ruelas DPM Referring Provider Rosalie AVILA, Dr. Collier Primary Care Provider Paola KITCHEN FOOD SERVER-C, Meredith Attending Provider Rosalie AVILA, Nando Referring Provider Unavaila ble Reji LLANOSM, Dr. Kelley Referring Provider Yuriy AVILA, Dr. Pena Referring Provider [phone] Salma Dugan Attending Provider Jerome AVILA, Dr. [...] Silviano AVILA, Dr. Tee Other Provider Jose LLANOSM, Dr. Bahena Other Provider Herbert DIEZ, Dr. Pfeiffer Attending Provider Naivn AVILA, Dr. Romano Attending Provider Enrrique AVILA, Dr. Dickerson Attending Provider Kenneth AVILA, Dr. Estevez Attending Provider Dr. Margarette Godinez DO Other Provider Christopher AVILA, Dr. Elliott Attending Provider Enrrique AVILA, Dr. Dickerson Referring Provider Mookie AVILA, Dr. Tee Other Provider Radha DIEZ, Dr. Nunes Attending Provider Radha DIEZ, Dr. Nunes Emergency Provider Mookie AVILA, Dr. Tee Referring Provider Rosalie AVILA, Dr. Collier Attending Provider Christopher AVILA, Dr. Elliott Admit Provider [phone] Lele White MD Referring Provider Christopher AVILA, Dr. Elliott Other Provider Salma Dugan Referring Provider Rosalie AVILA, Dr. Collier Referring Provider Rosalie AVILA, Dr. Collier Primary Care Provider Nando Wiggins MD Attending Provider Meredith Serna Attending Provider Dr. Warren Mendoza DPM Referring Provider Nando Wiggins MD Referring Provider Unavailkavon Wiggins MD, Dr. Collier Primary Care Provider Salma Dugan Attending Provider [phone] Nando Wiggins MD Primary Care Provider Meredith Maradiaga Attending Provider Artie AVILA, Dr. Jackson Other Provider Nando Wiggins MD Attending Provider Unavailkavon Mendoza DPM, Dr. Kelley Referring Provider Dr. Randal Damico MD Attending Provider Dr. Jean Yan MD Referring Provider [phone] Alden KITCHEN FOOD SERVER-CPooja Attending Provider Alejandra DIEZ, Dr. Santana Referring Provider Dr. Max Roberts DO Emergency Provider Rosalie AVILA, Dr. Collier Primary Care Provider Nando Wiggins MD Attending Provider Unavailkavon Mendoza DPM, Dr. Kelley Referring Provider Dr. Randal Damico MD Attending Provider Mookie AVILA, Dr. Tee Other Provider Paola KITCHEN FOOD SERVER-CMeredith Attending Provider Dr. Lele White MD Attending Provider Artie AVILA, Dr. Jackson Other Provider Alejandra DIEZ, Dr. Santana Attending Provider Dr. Lele Desai DO Emergency Provider Rosalie AVILA, Dr. Collier Primary Care Provider Nando Wiggins MD Attending Provider Unavailkavon Damico MD, Dr. Tee Attending Provider Mookie AVILA, Dr. Tee Referring Provider Mookie AVILA, Dr. Tee Other Provider Reji NIETO, Dr. Kelley Referring Provider Paola TOLEDO-CMeredith Attending Provider Dr. Lele Desai DO Attending Provider Lele White Attending Unavailable Salma Cervantes Referring Unavailable Oleghe, Efewongbe Primary Care Unavailable Nando Mejia Attending Unavailabl e Oleghe, Efewongbe Primary Care Unavailable Des Ruelas Consulting Unavailable Jaswant Montgomery Admitting Unavailable Jaswant Montgomery Attending Unavailable Jean Yan Primary Care Unavailable Lele White Consulting Unavailable Tanphaichitr, Natthavat Consulting Unavaila Jaswant Mares Consulting Unavailable Jayla Osuna Admitting Unavailable Margarette Godinez Attending Unavailable Oleghe, Efewongbe Primary Care Unavailable Chung Humphreys Referring Unavailable Jayla Osuna Consulting Unavailable Juan Antonio Holden Consulting Unavailable Randal Shore Consulting Unavailable Artie, Jayaprakas Consulting Unavailable Josef Garcia Consulting Unavailable Margarette Godinez Consulting Unavailable Warren Mendoza Consulting Unavailable Enrrique Jayla Admitting Unavailable Juan Antonio Holden Attending Unavailable Bursley, Jean Primary Care Unavailable Artie, Jayaprakas Consulting Unavailable Enrrique, Jayla Consulting Unavailable Silviano, Randal Consulting Unavailable Galax, Lele Consulting Unavailable Arlin, Fernando Consulting Unavailable Lele Mora Consulting Unavailable Warren Mendoza Consulting Unavailable Jayla Osuna Admitting Unavailable Bursley, Jean Primary Care Unavailable Fernando Oliveros Attending Unavailable Artie, Jayaprakas Consulting Unavailable Enrrique, Jayla Consulting Unavailable Silviano, Randal Consulting Unavailable Christopher, Lele Consulting Unavailable Fernando Oliveros Consulting Unavailable Lele Mora Attending Unavailable Abby Lele Consulting Unavailable Salma Cervantes Attending Unavailable Arlin Fernando Referring Unavailable Oleghe OLS, Efewongbe Attending Unavailabl e Oleghe, Efewongbe Primary Care Unavailable Oleghe OLS, Efewongbe Attending Unavailabl e Bursley, Jean Primary Care Unavailable Oleghe OLS, Efewongbe Referring Unavailabl e Oleghe OLS, Efewongbe Attending Unavailabl e Bursley, Jean Primary Care Unavailable Galax, Lele Referring Unavailable Galax, Lele Admitting Unavailable Lele White Attending Unavailable Randal Damico Consulting Unavailable Oleghe, Efewongbe Primary Care Unavailable Artie, Jayaprakas Consulting Unavailable Warren Mendoza Attending Unavailable Warren Mendoza Referring Unavailable Bursley, Jean Primary Care Unavailable Warren Mendoza Referring Unavailable Randal Damico Attending Unavailable Oleghe, Efewongbe Primary Care Unavailable Galax, Lele Referring Unavailable Sulaiman Whiteic Attending Unavailable Bursley, Jean Primary Care Unavailable Jayla Osuna Attending Unavailable Juan Antonio Holden Attending Unavailable Deni Shields Attending Unavailable Jaswant Montgomery Consulting Unavailable Jaswant Montgomery Admitting Unavailable Bursley, Jean Primary Care Unavailable Randal Shore Consulting Unavailable Tanphaichikenny, Natthavat Consulting Unavaila Des Mcintyre Consulting Unavailable Lele White Consulting Unavailable Deni Shields Referring Unavailable Salma Cervantes Attending Unavailable Randal Shore Consulting Unavailable Deni Shields Consulting Unavailable Oleghe, Efewongbe Attending Unavailable Bursley, Jean Primary Care Unavailable CervantesWes sheltonison Attending Unavailable Oleghe, Efewongbe Primary Care Unavailable Bursley, Jean Referring Unavailable Oleghe, Efewongbe Primary Care Unavailable Oleghe, Efewongbe Attending Unavailable Oleghe, Efewongbe Primary Care Unavailable Tickton KITCHEN FOOD SERVER, Meredith Attending Unavailable Oleghe, Efewongbe Primary Care Unavailable Tickton KITCHEN FOOD SERVER, Meredith Attending Unavailable Tickton KITCHEN FOOD SERVER, Meredith Attending Unavailable Oleghe, Efewongbe Primary Care Unavailable Oleghe, Efewongbe Primary Care Unavailable Tickton KITCHEN FOOD SERVER, Meredith Attending Unavailable Oleghe, Efewongbe Primary Care Unavailable Tickton KITCHEN FOOD SERVER, Meredith Attending Unavailable Oleghe, Efewongbe Primary Care Unavailable Tickton KITCHEN FOOD SERVER, Meredith Attending Unavailable Warren Mendoza Consulting Unavailable Warren Mendoza Referring Unavailable Salma Cervantes Attending Unavailable Bursley, Jean Primary Care Unavailable Oleghe, Efewongbe Primary Care Unavailable Tickton KITCHEN FOOD SERVER, Meredith Attending Unavailable Tickton KITCHEN FOOD SERVER, Meredith Attending Unavailable Bursley, Jean Primary Care Unavailable Oleghe, Efewongbe Primary Care Unavailable Des Garcia Attending Unavailable Oleghe, Efewongbe Primary Care Unavailable Alicia Loo Attending Unavailable Oleghe, Efewongbe Primary Care Unavailable Franklin, Eric Attending Unavailable Oleghe OLS, Efewongbe Attending Unavailabl e Oleghe, Efewongbe Primary Care Unavailable Warren Mendoza Referring Unavailable Randal Damico Attending Unavailable Oleghe, Efewongbe Primary Care Unavailable Billy Salma Attending Unavailable Billy Salma Referring Unavailable Oleghe, Efewongbe Primary Care Unavailable Oleghe OLS, Efewongbe Attending Unavailabl e Bursley, Jean Primary Care Unavailable Artie, Babakyaprakas Consulting Unavailable Oleghe, Efewongbe Primary Care Unavailable Fernando Oliveros Attending Unavailable Fernando Oliveros Admitting Unavailable Des Ruelas Attending Unavailable Des Ruelas Referring Unavailable Bursley, Jean Primary Care Unavailable Osuna, Jayla Admitting Unavailable Jayla Osuna Consulting Unavailable Margarette Godinez Attending Unavailable Chung Humphreys Referring Unavailable Oleghe, Efewongbe Primary Care Unavailable Juan Antonio Holden Consulting Unavailable Randal Shore Consulting Unavailable Manuel Alva Consulting Unavailable Josef Garcia Consulting Unavailable Oleghe OLS, Efewongbe Attending Unavailabl e Oleghe, Efewongbe Primary Care Unavailable Oleghe OLS, Efewongbe Attending Unavailabl e Oleghe, Efewongbe Primary Care Unavailable Lele White Attending Unavailable Enrrique, Jayla Referring Unavailable Oleghe, Efewongbe Primary Care Unavailable Lele White Attending Unavailable Enrrique, Jayla Referring Unavailable Oleghe, Efewongbe Primary Care Unavailable Oleghe, Efewongbe Primary Care Unavailable Zenaida Cooper Attending UnavailRandal Oh Consulting Unavailable Sisdhaval Randal Attending Unavailable Siska Randal Referring Unavailable Oleghe, Efewongbe Primary Care Unavailable Warren Mendoza Referring Unavailable Siska, Randal Consulting Unavailable Siska Randal Attending Unavailable Oleghe, Efewongbe Primary Care Unavailable Warren Mendoza Referring Unavailable Siska, Randal Consulting Unavailable Siska Randal Attending Unavailable Oleghe, Efewongbe Primary Care Unavailable Galax, Lele Consulting Unavailable Sulaiman Whiteic Attending Unavailable Christopher, Lele Referring Unavailable Bursley, Jean Primary Care Unavailable Warren Mendoza Referring Unavailable Siska Arndal Consulting Unavailable Siska Randal Attending Unavailable Oleghe, Efewongbe Primary Care Unavailable Siska, Randal Consulting Unavailable Siska Randal Attending Unavailable Siska, Randal Referring Unavailable Oleghe, Efewongbe Primary Care Unavailable Siska, Randal Consulting Unavailable Siska, Randal Attending Unavailable Siska, Randal Referring Unavailable Oleghe, Efewongbe Primary Care Unavailable Lele White Attending Unavailable Enrrique, Jayla Referring Unavailable Bursley, Jean Primary Care Unavailable Bursley, Jean Primary Care Unavailable Itz Mahan Referring Unavailable Warren Jackson Attending Unavailable Salma Cervantes Attending Unavailable Oleghe, Efewongbe Primary Care Unavailable Oleghe, Efewongbe Referring Unavailable Galax, Lele Admitting Unavailable Christopher, Lele Referring Unavailable Siska Randal Attending Unavailable Siska Randal Consulting Unavailable Oleghe, Efewongbe Primary Care Unavailable ArtieManuel huertas Consulting Unavailable Lele White Consulting Unavailable Oleghe OLS, Efewongbe Referring Unavailabl [...] Unavailabl e Oleghe, Efewongbe Primary Care Unavailable Jayla Osuna Attending Unavailable Bursley, Jean Primary Care Unavailable Deni Shields Attending Unavailable Oleghe OLS, Efewongbe Attending Unavailabl e Oleghe, Efewongbe Primary Care Unavailable Oleghe, Efewongbe Primary Care Unavailable Lele Desai Attending Unavailable Belal, Farmedk Consulting Unavailable Oleghe, Efewongbe Primary Care Unavailable Max Roberts Attending Unavailable Alejandra Max Referring Unavailable Oleghe OLS, Efewongbe Attending Unavailabl e Bursley, Jean Primary Care Unavailable Oleghe OLS, Efewongbe Attending Unavailabl e Oleghe, Efewongbe Primary Care Unavailable Bursley, Jean Primary Care Unavailable Yunior Davey Attending Unavailable Oleghe OLS, Efewongbe Attending Unavailabl e Oleghe, Efewongbe Primary Care Unavailable Oleghe OLS, Efewongbe Attending Unavailabl e Bursley, Jean Primary Care Unavailable Warren Mendoza Referring Unavailable Randal Damico Attending Unavailable Oleghe, Efewongbe Primary Care Unavailable Oleghe OLS, Efewongbe Referring Unavailabl e Oleghe OLS, Efewongbe Attending Unavailabl e Oleghe, Efewongbe Primary Care Unavailable Salma Cervantes Attending Unavailable Warren Mendoza Referring Unavailable Randal Damico Consulting Unavailable Randal Damico Attending Unavailable Oleghe, Efewongbe Primary Care Unavailable Galax, Lele Attending Unavailable Galax, Lele Referring Unavailable Galax, Lele Admitting Unavailable Randal Damico Attending Unavailable Oleghe, Efewongbe Primary Care Unavailable SisRandal puentes Consulting Unavailable Artie, Jayaprakas Consulting Unavailable Galax, Lele Consulting Unavailable Christopher, Lele Attending Unavailable Juan Antonio Holden Attending Unavailable Navin, Juan Antonio Consulting Unavailable Oleghe, Efewongbe Primary Care Unavailable Meredith Guevara NP Attending Unavailable Des Ruelas Attending Unavailable Warren Mendoza Referring Unavailable Bursley, Jean Primary Care Unavailable Oleghe OLS, Efewongbe Referring Unavailabl e Oleghe OLS, Efewongbe Attending Unavailabl e Oleghe, Efewongbe Primary Care Unavailable Randal Damico Attending Unavailable Oleghe, Efewongbe Primary Care Unavailable Warren Mendoza Referring Unavailable Oleghe OLS, Efewongbe Attending Unavailabl e Oleghe, Efewongbe Primary Care Unavailable Jayla Osuna Consulting Unavailable Jayla Osuna Admitting Unavailable Chung Humphreys Referring Unavailable Oleghe, Efewongbe Primary Care Unavailable Jayla Osuna Attending Unavailable Artie, Jayaprakas Consulting Unavailable Oleghe, Efewongbe Primary Care Unavailable Fernando Oliveros Attending Unavailable Fernando Oliveros Admitting Unavailable Fernando Oliveros Consulting Unavailable Galax, Lele Attending Unavailable Oleghe, Efewongbe Primary Care Unavailable Oleghe, Efewongbe Attending Unavailable Oleghe, Efewongbe Primary Care Unavailable Bursley, Jean Referring Unavailable Pooja Ruano NP Attending Unavailable Salma Cervantes Attending Unavailable Oleghe, Efewongbe Primary Care Unavailable Oleghe, Efewongbe Referring Unavailable Oleghe, Efewongbe Primary Care Unavailable Meredith Guevara NP Attending Unavailable Salma Cervantes Attending Unavailable Oleghe, Efewongbe Primary Care Unavailable Oleghe, Efewongbe Referring Unavailable Jayla Osuna Attending Unavailable Oleghe OLS, Efewongbe Attending Unavailabl e Oleghe, Efewongbe Primary Care Unavailable Deni Shields Referring Unavailable Salma Cervantes Attending Unavailable Bursley, Jean Primary Care Unavailable Lele White Attending Unavailable Wes Cervantesison Referring Unavailable Oleghe OLS, Efewongbe Attending Unavailabl e Bursley, Jean Primary Care Unavailable Oleghe OLS, Efewongbe Attending Unavailabl e Yuriy, Jean Primary Care Unavailable Oleghe OLS, Efewongbe Attending Unavailabl e Yuriy, Jean Primary Care Unavailable Oleghe OLS, Efewongbe Attending Unavailabl e Oleghe, Efewongbe Primary Care Unavailable Oleghe OLS, Efewongbe Attending Unavailabl e Oleghe, Efewongbe Primary Care Unavailable Oleghe, Efewongbe Primary Care Unavailable Oleghe OLS, Debongbe Attending Unavailabl e PODLOGAR, LAUREN Attending Unavailable DANILO MARTINES Referring Unavailable MARCO A YANER Too Primary Care Unavailab le PODLOGAR, LAUREN Attending Unavailable MARCO A YANER Too Primary Care Unavailab le PODLOGAR, LAUREN Referring Unavailable MARCO A YANER B Primary Care Unavailab le MARCO A YANER B Primary Care Unavailab LELE Joseph Referring Unavailable MARCO A YANER B Primary Care Unavailab ANGEL Antony Admitting Unavailable ANGEL GODINEZ Attending Unavailable Kassidy CHAIR INSTALLER.DIRECT SUPPORT PROFESSIONAL, Yesenia Unavailable Allergies Allergy Classification Reported Allergen(s) Allergy Type Date of Onset Reaction(s) Facility (20 sources) atenolol; Translations: [ATENOLOL] allergy to substance 0 GI Upset [facility] Work Phone: (17 sources) pioglitazone drug allergy 7 fatigue [facility] Work Phone: (12 sources) simvastatin drug allergy 7 myalgia [facility] Work Phone: (12 sources) SITagliptin drug allergy 7 [facility] Work Phone: (20 sources) pioglitazone; Translations: [PIOGLITAZONE HCL] Drug Allergy 7 Other: See Comments [facility] Work Phone: (20 sources) Simvastatin; Translations: [SIMVASTATIN] Drug Allergy 7 myalgia [facility] Work Phone: (20 sources) SITagliptin; Translations: [SITAGLIPTIN] Drug Allergy 4 Other: See Comments [facility] (9 sources) pioglitazone Drug Allergy 2 fatigue [facility] (13 sources) semaglutide; Translations: [SEMAGLUTIDE] Drug Allergy 4 GI Upset [facility] (1 source) pioglitazone Drug Allergy 5 [facility] (1 source) Simvastatin Drug Allergy 5 [facility] (1 source) SITagliptin Drug Allergy 5 [facility] Medications Current Medications Medication Drug Class(es) Dates Sig (Normalized) Sig (Original) 0.25 MG, 0.5 MG Dose 3 ML semaglutide 0.68 MG/ML Pen Injector [Ozempic] (1 source) Start: 09-07-2023 Ozempic 2 mg/3 mL (0.25 mg or 0.5 mg dose) subcutaneous solution Dose : 0.5 mg =, Subcutaneous, Tuesday, rotate injection sites, 0 Refill(s) Start Date: 09/07/23 Status: Ordered acetaminophen 500 mg oral capsule (19 sources) Start: 11-22-2024 Start: 04-24-2024 End: 11-22-2024 albuterol 0.83 mg/ml inhalation solution (8 sources) beta2-Adrenergic Agonist Start: 07-20-2024 aspirin 81 mg delayed releas e oral tablet (20 sources) Nonsteroidal Anti-inflammatory Drug Start: 07-01-2020 Start: 05-12-2017 End: 06-24-2020 Start: 10-26-2016 take 1 tablet by davin th once daily ASPIRIN EC 81 MG TBEC One tablet by mouth daily ASPIRIN [id number] Bernarda Kraus RN Start: 04-06-2013 take 1 tablet by davin th once daily at mealtime Aspirin 81 mg tab Take 1 tablet by mouth once daily. Take with food. 30 tablet 11 04/06/2013 Active Comment on above: Take 1 tablet by davin th once daily. Take with food. B Complex-Vitamin C-Folic Acid (DENNISE-VIT) 0.8 mg tab (1 source) Start: 11-28-2024 take 1 tablet by mouth once daily B Complex-Vitamin C-Folic Acid (DENNISE-VIT) 0.8 mg tab Take 1 tablet by mouth once daily. 90 tablet 11/28/2024 Active benzocaine 15 mg / menthol 3.6 mg oral lozenge (8 sources) Standardized Chemical Allergen Start: 07-20-2024 Blood-Glucose [...] One tablet by mouth daily CHOLECALCIFEROL CAPS [id number] Laron Bacon MD take 1 tablet by [...] daily. docusate sodium 50 mg / sennosides, [facility] 8.6 mg oral tablet (16 sources) Start: 04-24-2024 End: 06-04-2024 flash glucose scanning reader (FREESTYLE GELACIO 14 DAY READER) (18 sources) Start: 06-08-2023 flash glucose scanning reade [...] glucose sensor (FREESTYLE GELACIO 2 SENSOR) kit (15 sources) Start: 01-06-2024 flash glucose sensor (FREESTYLE [...] 14 Day Sensor kit (1 source) Start: 09-07-2023 FreeStyle Gelacio 14 Day Sensor kit FreeStyle Gelacio 14 Day Sensor kit, CHANGE APPLIANCE EVERY 14 DAYS, 0 Refill(s) Start Date: 09/07/23 Status: Ordered 3 ml insulin glargine 100 unt/ml pen injector (20 sources) Insulin Analog Start: 09-07-2023 Lantus Solostar Pen 100 units/mL 3 mL Pen Dose : 25 unit(s) =, Subcutaneous, acSupper, # 3 mL, 0 Refill(s) Start Date: 09/07/23 Status: Ordered Start: 06-07-2022 End: 06-05-2023 insulin glargine (LANTUS [...] 5 Each 0 02/08/2022 06/07/2022 Discontinued Start: 02-18-2021 Insulin Glargi ne Active 22 UNIT SC WITH DINNER February 18, 2021 9:14am Start: 04-18-2020 End: 01-06-2025 insulin glargine (LANTUS WAYNE OSTAR U-100 INSULIN) 100 unit/mL (3 mL) Indications: 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, without long-term current use of insulin (HCC) Inject 37 Units subcutaneously once daily. 24 mL 1 07/10/2024 01/06/2025 Active Start: 04-18-2020 End: 04-24-2024 Start: 04-18-2020 End: 08-07-2022 insulin glargine (LANTUS WAYNE OSTAR U-100 INSULIN) 100 unit/mL (3 mL) Indications: 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 edema, without long-term current use of insulin ([facility]) Inject 18 Units subcutaneously once daily. 5 Each 0 02/08/2022 08/07/2022 Active Start: 04-18-2020 End: 10-07-2023 insulin glargine (LANTUS WAYNE OSTAR U-100 INSULIN) 100 unit/mL (3 mL) Indications: 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, without long-term current use of insulin ([facility]) Inject 20 Units subcutaneously once daily. 18 mL 1 12/07/2022 05/27/2023 Discontinued Start: 04-18-2020 End: 06-13-2024 Start: 04-18-2020 End: 09-24-2024 Start: 04-18-2020 End: 10-03-2024 Start: 04-18-2020 End: 02-18-2021 Insulin Glargine Discontinue d 26 UNITS SC WITH DINNER April 18, 2020 1:00am February 18, 2021 9:15am Comment on above: Inject 18 Units subc utaneously once daily. Inject 20 Units subc utaneously once daily. Inject 25 Units subc utaneously once daily. ketorolac tromethamine 5 mg/ml ophthalmic solution (1 [...] ophthalmic solution (1 source) Quinolone Antimicrobial Start: 4 ofloxacin 0.3% ophthalmic solution Dose = 1 drop(s), Eye, right, QID, # 10 mL, 0 Refill(s) Start Date: 09/07/23 Status: Ordered 12 hr timolol 5 mg/ml ophthalmic solution (1 source) beta-Adrenergic Prakash Start: 4 timolol maleate 0.5% ophthalmic solution Dose = 1 drop(s), Eye, right, BID, # 10 mL, 0 Refill(s) Start Date: 09/07/23 Status: Ordered torsemide 100 mg oral tablet (15 sources) Loop Diuretic Start: 4 take 1 tablet by mouth once daily torsemide (DEMADEX) 100 mg tablet TAKE 1 TABLET BY MOUTH ON NON DIALYSIS DAYS 03/28/2024 Active Vitamin D3 25 mcg (1000 intl units) oral capsule (1 source) Start: 4 Vitamin D3 25 mcg (1000 intl units) oral capsule Dose : 25 mcg = 1 cap(s), Oral, Daily, 0 Refill(s) Start Date: 09/07/23 Status: Ordered (20 sources) Start: Start: 08-29-2024 End: 10-29-2024 Start: 08-29-2024 Start: 07-20-2024 Start: 06-04-2024 End: 10-29-2024 Start: 06-04-2024 Start: 09-24-2022 End: 10-07-2023 Completed/Discontinued Medications Medication Drug Class(es) Dates Sig (Normalized) Sig (Original) acetaminophen 325 mg / oxyCODONE hydrochloride 2.5 mg oral tablet (20 sources) Opioid Agonist Start: 07-13-2024 End: 07-20-2024 Start: 06-08-2024 End: 07-10-2024 Start: 06-06-2024 End: 06-06-2024 Start: 06-06-2024 End: 06-08-2024 amLODIPine 5 mg oral tablet (20 sources) Dihydropyridine Calcium Channel Prakash Start: 09-24-2022 End: 10-07-2023 Start: 05-12-2017 End: 05-02-2020 Start: 10-26-2016 take 1 tablet by davin th once daily AMLODIPINE BESYLATE 10 MG TABS One tablet by mouth daily AMLODIPINE BESYLATE [id number] Bernarda Kraus RN amoxicillin 250 mg / clavula chase 125 mg oral tablet (16 sources) Penicillin-class Antibacterial Start: 05-10-2024 End: 05-22-2024 Start: 04-24-2024 End: 05-04-2024 apixaban 2.5 mg oral tablet (20 sources) Factor Xa Inhibitor Start: 10-17-2024 End: 10-30-2024 Start: 06-24-2020 End: 07-05-2020 atenolol 50 mg oral tablet (12 sources) beta-Adrenergic Prakash Start: 10-26-2016 End: 10-27-2016 take 1 tablet by mouth once daily ATENOLOL 50 MG TABS One tablet by mouth daily ATENOLOL [id number] Bernarda Kraus RN B COMPLEX VITAMINS (2 sources) Start: 10-27-2016 take 1 tablet by mouth once daily B COMPLEX-B12 TABS One tablet by mouth daily B COMPLEX VITAMINS [id number] Laron Bacon MD B COMPLEX VITAMINS (3 sources) Start: 10-27-2016 take 1 tablet by mouth once daily B COMPLEX-B12 TABS One tablet by mouth daily B COMPLEX VITAMINS [id number] Laron Bacon MD cephalexin 500 mg oral capsule (9 sources) Cephalosporin Antibacterial Start: 10-13-2020 End: 10-18-2020 cinnamon bark 500 mg oral capsule (7 sources) Start: 10-26-2016 take 1 tablet by mouth once daily CINNAMON 500 MG CAPS One tablet by mouth daily CINNAMON [id number] Bernarda Kraus RN clopidogrel 75 mg oral tablet (16 sources) P2Y12 Platelet Inhibitor Start: 07-02-2024 End: 10-17-2024 Start: 04-24-2024 End: 06-04-2024 doxycycline hyclate 100 mg o ral capsule (16 sources) Tetracycline-class Drug Start: 05-10-2024 End: 05-22-2024 [...] / vitamin b12 0.5 mg oral tablet (9 sources) Vitamin B12 Start: 10-21-2021 End: 11-18-2021 Start: 10-21-2021 take 1 tablet by davin th once daily Vitamin K50-Titpu Acid Active 1 TABLET PO DAILY October [...] TABS One tablet by mouth daily GLIPIZIDE [id number] Bernarda Kraus RN Comment on above: Take 1 tablet by davin th twice daily before meals. heparin sodium, porcine 5000 unt/ml injectable solution (8 sources) Unfractionated Heparin, Anti-coagulant Start: 07-20-2024 End: 10-17-2024 hydroCHLOROthiazide 25 mg or al tablet (20 sources) Thiazide Diuretic Start: 05-12-2017 End: 12-03-2018 Start: 10-27-2016 take 1 tablet by davin th once daily HYDROCHLOROTHIAZIDE 25 MG TABS One tablet by mouth daily HYDROCHLOROTHIAZIDE [id number] Laron Bacon MD sodium hypochlorite 2.5 mg/ml topical solution (16 sources) Start: 07-20-2024 End: 09-02-2024 3 ml insulin lispro 100 unt/ml pen injector (20 sources) Insulin Analog Start: 04-24-2024 End: 07-20-2024 krill oil (5 sources) Start: 10-27-2016 take 1 tablet by mouth once daily HM MEGAKRILL CAPS One tablet by mouth daily KRILL OIL CAPS [id number] Laron Bacon MD 3 ml liraglutide 6 mg/ml pen injector (16 sources) GLP-1 Receptor Agonist Start: 05-12-2017 End: 05-04-2018 Start: 05-12-2017 End: 05-04-2018 Liraglutide Discontinued SC 6 60 May 12, 2017 1:00am May 04, 2018 10:45am Start: 10-26-2016 VICTOZA TERRA jacobson s directed LIRAGLUTIDE SOLN [id number] Bernarda Kraus RN lisinopril 40 mg oral tablet (16 sources) Angiotensin Converting Enzyme Inhibitor Start: 05-12-2017 End: 05-02-2020 Start: 10-26-2016 take 1 tablet by davin th once daily ZESTRIL 40 MG TABS One tablet by mouth daily LISINOPRIL [id number] Bernarda Kraus RN methylsulfonylmethane (5 sources) Start: 10-27-2016 take 1 tablet by mouth once daily [facility] MSM CAPS One tablet by mouth daily METHYLSULFONYLMETHANE CAPS [id number] Laron Bacon MD metoprolol tartrate 25 mg oral tablet (9 sources) beta-Adrenergi c Prakash Start: 04-18-2020 End: 05-02-2020 miconazole nitrate 20 mg/ml topical cream (8 sources) Azole Antifungal Start: 04-24-2024 End: 05-10-2024 nystatin 213867 unt/ml topical cream (8 sources) Polyene Antifungal Start: 05-22-2024 End: 08-28-2024 [...] time a week. vancomycin 750 mg injection (16 sources) Glycopeptide Antibacterial Start: 07-19-2024 End: 09-02-2024 vitamin b12 1 mg oral tablet (16 sources) Vitamin B12 Start: 11-18-2021 End: 06-04-2024 Problems Active Problems Problem Classification Problem Date Documented Date Episodic/Chronic Acute and unspecified renal failure (9 sources) Mqrys-pu-qcavgdu renal failure; Translations: [Acute kidney failure, unspecified] 06-23-2020 Episodic Cardiac dysrhythmias (20 sources) Paroxysmal atrial fibrillation; Translations: [Paroxysmal atrial fibrillation] 07-15-2024 Chronic Cardiac dysrhythmias (19 sources) Sinus bradycardia; Translations: [Bradycardia, unspecified] Onset: 5 Episodic Chronic kidney disease (20 sources) Chronic kidney disease stage 3; Translations: [Chronic kidney disease (CKD), stage III (moderate)] Onset: 7 Resolved: 3 10-26-2016 Chronic Chronic ulcer of skin (20 sources) Non-pressure chronic ulcer of other part of right foot with necrosis of bone; Translations: [Non-pressure chronic ulcer of other part of right foot with necrosis of bone] Onset: 4 05-18-2024 Chronic Complication of device; implant or graft (11 sources) Dialysis finding; Translations: [Other specified complication of vascular prosthetic devices, implants and grafts, initial encounter] Chronic Complication of device; implant or graft (9 sources) Malfunction of peritoneal dialysis catheter; Translations: [Breakdown (mechanical) of intraperitoneal dialysis catheter, initial encounter] 08-28-2020 Episodic Conduction disorders (20 sources) Mobitz type I incomplete atrioventricular block; Translations: [Left bundle branch block] Onset: 7 10-26-2016 Chronic Congestive heart failure; nonhypertensive (20 sources) Chronic diastolic heart failure; Translations: [Chronic diastolic (congestive) heart failure] Onset: 0 03-04-2021 Chronic Deficiency and other anemia (16 sources) Anemia of chronic disease; Translations: [Anemia in other chronic diseases classified elsewhere] 08-30-2024 Chronic Deficiency and other anemia (2 sources) Anemia in other chronic diseases classified elsewhere; Translations: [Anemia in other chronic diseases classified elsewhere] Onset: 5 Chronic Deficiency and other anemia (1 source) Anemia due to multiple mechanisms; Translations: [Other specified anemias] Onset: 5 11-27-2024 Episodic Diabetes mellitus with complications (20 sources) Type [...] Translations: [Mixed hyperlipidemia] Onset: 6 10-26-2016 Chronic E Codes: Fall (4 sources) Fall; Translations: [Unspecified fall, initial encounter] 11-08-2024 Episodic Essential hypertension (20 sources) Hypertensive disorder; Translations: [Essential hypertension] Onset: 5 10-26-2016 Chronic Fluid and electrolyte disorders (20 sources) Hyperkalemia; Translations: [Hyperkalemia] Onset: 5 07-11-2024 Episodic Gangrene (17 sources) Atherosclerosis of [place] arteries of extremities with gangrene, right leg; Translations: [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] Onset: [...] foot, initial encounter] Onset: 5 07-11-2024 Episodic Open wounds of head; neck; and trunk (4 sources) Laceration of nose; Translations: [Laceration without foreign body of nose, initial encounter] 11-08-2024 Episodic Other acquired deformities (1 source) Deformity of foot; Translations: [Unspecified acquired deformity of right lower leg] 03-04-2021 Episodic Other aftercare (8 sources) Surgical follow-up; Translations: [Encounter for surgical aftercare following surgery on the circulatory system] 06-20-2024 Episodic Other aftercare (2 sources) Encounter for orthopedic aftercare following surgical amputation; Translations: [Encounter for orthopedic aftercare following surgical amputation] Onset: Episodic Other bone disease and musculoskeletal deformities (11 sources) History of amputation of right foot; [...] great toe] Onset: Chronic Other circulatory disease (12 sources) Arteriovenous fistula; Translations: [Arteriovenous fistula, acquired] 10-17-2024 Chronic Other circulatory disease (2 sources) Other specified peripheral vascular diseases; Translations: [Other specified peripheral vascular diseases] Onset: 5 Chronic Other circulatory disease (16 sources) Electrocardiogram abnormal; Translations: [Abnormal electrocardiogram [ECG] [EKG]] Onset: 7 10-26-2016 Episodic Other circulatory disease (8 sources) Ischemic toe; Translations: [Other disorder of circulatory system] 05-18-2024 Episodic Other circulatory disease (2 sources) Other disorder of circulatory system; Translations: [Other disorder of circulatory system] Onset: Episodic Other connective tissue disease (9 sources) Swelling of bilateral lower limbs; Translations: [Other specified soft tissue disorders] 04-14-2024 Episodic Other connective tissue disease (1 source) Pain in left foot; Translations: [Pain in left foot] 06-27-2023 Episodic Other connective tissue disease (1 source) Pain in right foot; Translations: [Pain in right foot] 06-27-2023 Episodic Other connective tissue disease (13 sources) Foot pain; Translations: [Pain in right [...] Translations: [History of falling] 12-06-2022 Episodic Other injuries and conditions due to external causes (4 sources) Closed injury of head; Translations: [Unspecified injury of head, initial encounter] 11-08-2024 Episodic Other injuries and conditions due to external causes (1 source) Encounter for examination and observation following other accident; Translations: [Encounter for examination and observation following other accident] Onset: 5 Episodic Other lower respiratory disease (9 sources) Dyspnea; Translations: [Dyspnea, unspecified] 06-23-2020 Episodic Other nervous system disorders (10 sources) Acute postoperative pain; Translations: [Other acute postprocedural pain] 06-06-2024 Episodic Other nutritional; endocrine; and metabolic disorders (7 sources) Obesity; Translations: [Obesity, unspecified] Onset: 7 10-26-2016 Chronic Other nutritional; endocrine; and metabolic disorders (1 source) Hyperphosphatemia; Translations: [Other disorders of phosphorus metabolism] Onset: 5 11-23-2024 Chronic Peripheral and visceral atherosclerosis (20 sources) Peripheral vascular disease; Translations: [Peripheral vascular disease, unspecified] Onset: 5 08-09-2024 Chronic Residual codes; unclassified (20 sources) Edema of lower extremity; Translations: [Localized edema] Onset: 0 Resolved: 0 07-25-2017 Episodic Residual codes; unclassified (9 sources) H/O: major vascular surgery; Translations: [Other specified postprocedural states] 12-26-2020 Episodic Residual codes; unclassified (2 sources) Altered mental status, unspecified; Translations: [Altered mental status, unspecified] Onset: Episodic Skin and subcutaneous tissue infections (20 sources) Infection of foot; Translations: [Local infection of the skin and subcutaneous tissue, unspecified] Onset: 04-14-2024 Episodic Unclassified (4 sources) Long-term drug therapy; Translations: [Other terminal superintendent (current) drug therapy] Onset: 10-26-2016 Past or Other Problems Problem Classification Problem Date Documented Date Episodic/Chronic Bacterial infection; unspecified site (15 sources) Bacteremia due to Methicillin resistant Staphylococcus aureus; Translations: [Bacteremia] Onset: 07-22-2024 07-16-2024 Episodic Conditions associated with dizziness or vertigo (9 sources) Dizziness; Translations: [Dizziness and giddiness] Onset: 07-19-2024 07-15-2024 Episodic Genitourinary symptoms and ill-defined conditions (20 sources) Nocturia; Translations: [Nocturia] Onset: 06-21-2005 06-21-2005 Episodic Malaise and fatigue (1 source) Weakness; Translations: [Weakness] Onset: 07-17-2024 Episodic Melanomas of skin (14 sources) Lentigo maligna; 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, unspecified] Onset: 09-26-2014 Resolved: 02-28-2020 02-28-2020 Chronic Mycoses (20 sources) Onychomycosis; Translations: [Tinea unguium] Onset: 09-22-2011 Resolved: 11-18-2016 09-22-2011 Episodic Other aftercare (3 sources) Other terminal superintendent (current) drug therapy; Translations: [Other terminal superintendent (current) drug therapy] Onset: 10-26-2016 10-26-2016 Episodic Other aftercare (1 source) Encounter for change or removal of nonsurgical wound dressing; Translations: [Encounter for change or removal of nonsurgical wound dressing] Onset: 08-09-2024 Episodic Other aftercare (1 source) retirement (current) use of insulin; Translations: [Type 2 [...] Onset: 07-07-2015 07-07-2015 Episodic Residual codes; unclassified (14 sources) Noncompliance with therapeutic regimen; Translations: [Noncompliance with diet and medication regimen] Onset: 04-17-2013 Resolved: 11-18-2016 11-18-2016 Episodic Residual codes; unclassified (1 source) Localized edema; Translations: [Lower extremity edema] Onset: 07-25-2017 Episodic Results Test Name Value Interpretation Reference Range Facility Basic metabolic 2000 panelon 11-28-2024 Anion gap [Moles/Vol] 10 mmol/L Normal 8-15 [facility] Comment on above: Order Comment: Lesvia aleman Type: BLOOD SPECIMENOrdering Facility: [facility] Address: [address] [place] [address] Performed By: #### 2 4321-2, ####[facility] LABIA [id number] [place] [address] [place] Calcium [Mass/Vol] 8.8 mg/dL Normal 8.5-10.2 [facility] Comment on above: Order Comment: Lesvia aleman Type: BLOOD SPECIMENOrdering Facility: [facility] Address: [address] [place] [address] Performed By: #### 2 4321-2, ####[facility] LABCLIA [id number] [address] [address] [place] Chloride [Moles/Vol] 96 mmol/L Low 98-107 [facility] Comment on above: Order Comment: Lesvia aleman Type: BLOOD SPECIMENOrdering Facility: [facility] Address: [address] [place] [address] Performed By: #### 2 4322, ####[facility] LABIA [id number] [address] [address] [place] CO2 [Moles/Vol] 26 mmol/L Normal 22-30 [facility] Comment on above: Order Comment: Speci men Type: BLOOD SPECIMENOrdering Facility: [facility] Address: [address] [place] [address] Performed By: #### 2 4320-06, ####[facility] LABIA [id number] [address] [address] [place] Creatinine [Mass/Vol] 2.74 mg/dL High 0.73-1.22 [facility] Comment on above: Order Comment: Speci men Type: BLOOD SPECIMENOrdering Facility: [facility] Address: [address] [place] [address] Performed By: #### 2 4320-06, ####[facility] LABIA [id number] [place] [id number] [place] Creatinine and Glomerular filtration rate.predicted panel (S/P/Bld) 22 mL/min/1.73m??? Low >=60 [facility] Comment on above: Order Comment: Speci men Type: BLOOD SPECIMENOrdering Facility: [facility] Address: [address] [place] [address] Result Comment: Tessa mated Glomerular Filtration Rate [...] reflect actual GFR. Performed By: #### 2 432-2, ####[facility]IA [id number] [address] [address] [place] Glucose [Mass/Vol] 153 mg/dL High 74-99 [facility] Comment on above: Order Comment: Speci men Type: BLOOD SPECIMENOrdering Facility: [facility] Address: [address] [place] [address] Result Comment: The [place] [employer] (ADA) provides guidance for cutoff values for fasting glucose and random glucose. The ADA defines fasting as no caloric intake for at least 8 hours. Fasting plasma glucose results between 100 to 125 mg/dL indicate increased risk for diabetes (prediabetes).Fasting plasma glucose results greater than or equal to 126 mg/dL meet the criteria for diagnosis of diabetes. In the absence of unequivocal hyperglycemia, results should be confirmed by repeat testing. In a patient with classic symptoms of hyperglycemia or hyperglycemic crisis, random plasma glucose results greater than or equal to 200 mg/dL meet the criteria for diagnosis of diabetes.Reference: Standards of Medical Care in Diabetes 2016, [place] [employer]. Diabetes Care. 2016.39(Suppl 1). Performed By: #### 2 4320-06, ####[facility] LABCLIA [id number] [place] [address] [place] Potassium [Moles/Vol] 4.4 mmol/L Normal 3.7-5.1 [facility] Comment on above: Order Comment: Speci men Type: BLOOD SPECIMENOrdering Facility: [facility] Address: [address] [place] [address] Performed By: #### 2 4320-06, ####[facility] LABCLIA [id number] [place] [address] [place] Sodium [Moles/Vol] 132 mmol/L Low 136-144 [facility] Comment on above: Order Comment: Speci men Type: BLOOD SPECIMENOrdering Facility: [facility] Address: [address] [place] [address] Performed By: #### 2 4320-06, ####[facility] LABCLIA [id number] [place] [address] [place] Urea nitrogen [Mass/Vol] 22 mg/dL Normal 9-24 [facility] Comment on above: Order Comment: Speci men Type: BLOOD SPECIMENOrdering Facility: [facility] Address: [address] [place] [address] Performed By: #### 2 4321-2, 66466-3 ####[facility] LABCLIA [id number] [facility] [address] [place] [address] [place] CASE MANAGEMon 11-28-2024 CASE MANAGEM Normal [facility] CBC panel Auto (Bld)on 11-28 Erythrocyte distribution width (RBC) [Ratio] 15.9 % High 11.5-15.0 [facility] Comment on above: Order Comment: Speci men Type: BLOOD SPECIMENOrdering Facility: [facility] Address: [address] [place] [address] Performed By: #### 5 8410-2 ####[facility] LABCLIA [id number] [address], [facility] [place] Hematocrit (Bld) [Volume fraction] 33.2 % Low 39.0-51.0 [facility] Comment on above: Order Comment: Speci men Type: BLOOD SPECIMENOrdering Facility: [facility] Address: [address] [place] [address] Performed By: #### 5 8410-2 ####[facility] LABCLIA [id number] [facility] [address] [place] [address] [place] Hemoglobin (Bld) [Mass/Vol] 10.4 g/dL Low 13.0-17.0 [facility] Comment on above: Order Comment: Speci men Type: BLOOD SPECIMENOrdering Facility: [facility] Address: [address] [place] [address] Performed By: #### 5 8410-2 ####[facility] LABCLIA [id number] [facility] [address] [place] [address] [place] MCH (RBC) [Entitic mass] 28.3 pg Normal 26.0-34.0 [facility] Comment on above: Order Comment: Speci men Type: BLOOD SPECIMENOrdering Facility: [facility] Address: [address] [place] [address] Performed By: #### 5 8410-2 ####[facility] LABIA [id number] [place] [address] [place] MCHC (RBC) [Mass/Vol] 31.3 g/dL Normal 30.5-36.0 [facility] Comment on above: Order Comment: Speci men Type: BLOOD SPECIMENOrdering Facility: [facility] Address: [address] [place] [address] Performed By: #### 5 8410-2 ####[facility] LABIA [id number] [place] [address] [place] MCV (RBC) [Entitic vol] 90.2 fL Normal 80.0-100.0 [facility] Comment on above: Order Comment: Speci men Type: BLOOD SPECIMENOrdering Facility: [facility] Address: [address] [place] [address] Performed By: #### 5 8410-2 ####[facility] LABIA [id number] [place] [address] [place] Nucleated RBC (Bld) [#/Vol] 10*3/uL Normal <0.01 [facility] Comment on above: Order Comment: Speci men Type: BLOOD SPECIMENOrdering Facility: [facility] Address: [address] [place] [address] Performed By: #### 5 8410-2 ####[facility] LABIA [id number] [place] [address] [place] Platelet mean volume (Bld) [Entitic vol] 12.8 fL High 9.0-12.7 [facility] Comment on above: Order Comment: Speci men Type: BLOOD SPECIMENOrdering Facility: [facility] Address: [address] [place] [address] Performed By: #### 5 8410-2 ####[facility] LABCLIA [id number] [place] [address] [place] Platelets (Bld) [#/Vol] 126 10*3/uL Low 150-400 [facility] Comment on above: Order Comment: Speci men Type: BLOOD SPECIMENOrdering Facility: [facility] Address: [address] [place] [address] Performed By: #### 5 8410-2 ####[facility]IA [id number] [place] [address] [place] RBC (Bld) [#/Vol] 3.68 10*6/uL Low 4.20-6.00 [facility] Comment on above: Order Comment: Speci men Type: BLOOD SPECIMENOrdering Facility: [facility] Address: [address] [place] [address] Performed By: #### 5 8410-2 ####[facility] LABIA [id number] [place] [address] [place] WBC (Bld) [#/Vol] 7.99 10*3/uL Normal 3.70-11.00 [facility] Comment on above: Order Comment: Speci men Type: BLOOD SPECIMENOrdering Facility: [facility] Address: [address] [place] [address] Performed By: #### 5 8410-2 ####[facility] LABIA [id number] [place] [id number] [place] CNDSon 11-28-2024 CNDS Normal [facility] CONSULT PROGon 11-28-2024 CONSULT PROG Normal [facility] Magnesium SerPl-mCncon 11-28 Magnesium [Mass/Vol] 2.1 mg/dL Normal 1.7-2.3 [facility] Comment on above: Order Comment: Speci men Type: BLOOD SPECIMENOrdering Facility: [facility] Address: [address] [place] [address] Performed By: #### 2 4321-2, 12445-6 ####[facility]IA [id number] [place] [address] [place] THERAPY NTon 11-28-2024 THERAPY NT Normal [facility] XR CHEST 1V FRONTAL PORTon 0 11-28-2024 XR CHEST 1V FRONTAL PORT Normal [facility] ALLIED HEALTHon 11-27-2024 ALLIED HEALTH Normal [facility] ARTERIAL BLOOD GASESon 11-27 Base excess Calc (Bld) [Moles/Vol] 4 mmol/L High 0-2 [facility] Comment on above: Order Comment: Speci men Type: ARTERIAL BLOOD SPECIMENOrdering Facility: [facility] Address: [address] [place] [address] Performed By: #### A LLBG ####[facility] LABCLIA [id number] [place] [address] [place] Body temperature 97.88 [degF] Normal [facility] Comment on above: Order Comment: Speci men Type: ARTERIAL BLOOD SPECIMENOrdering Facility: [facility] Address: [address] [place] [address] Performed By: #### A LLBG ####[facility] LABIA [id number] [place] [address] [place] Calcium.ionized (Bld) [Mass/Vol] 1.10 mmol/L Normal 1.08-1.30 [facility] Comment on above: Order Comment: Speci men Type: ARTERIAL BLOOD SPECIMENOrdering Facility: [facility] Address: [address] [place] [address] Performed By: #### A LLBG ####[facility] LABCLIA [id number] [place] [address] [place] Calcium.ionized adjusted to pH 7.4 (BldA) [Moles/Vol] 1.10 mmol/L Normal 1.08-1.30 [facility] Comment on above: Order Comment: Speci men Type: ARTERIAL BLOOD SPECIMENOrdering Facility: [facility] Address: [address] [place] [address] Performed By: #### A LLBG ####[facility] LABCLIA [id number] [address] [address] [place] Carboxyhemoglobin (BldA) [Mass fraction] 1.2 % Normal 0.0-2.0 [facility] Comment on above: Order Comment: Speci men Type: ARTERIAL BLOOD SPECIMENOrdering Facility: [facility] Address: [address] [place] [address] Result Comment: Carb oxyhemoglobin Reference Range for Smokers: 2.0-8.0% Performed By: #### A LLBG ####[facility] LABCLIA [id number] [place] [address] [place] CO2 (Bld) [Partial pressure] 48 mm Hg High 36-46 [facility] Comment on above: Order Comment: Speci men Type: ARTERIAL BLOOD SPECIMENOrdering Facility: [facility] Address: [address] [place] [address] Performed By: #### A LLBG ####[facility] LABCLIA [id number] [place] [address] [place] CO2 adjusted to patient's actual temperature (Bld) [Partial pressure] 47 mmHg High 36-46 [facility] Comment on above: Order Comment: Speci men Type: ARTERIAL BLOOD SPECIMENOrdering Facility: [facility] Address: [address] [place] [address] Performed By: #### A LLBG ####[facility] LABCLIA [id number] [place] [id number] [place] Glucose [Mass/Vol] 164 mg/dL High 60-105 [facility] Comment on above: Order Comment: Speci men Type: ARTERIAL BLOOD SPECIMENOrdering Facility: [facility] Address: [address] [place], [place] [id number] Performed By: #### A LLBG ####[facility] LABCLIA [id number] [place] [address] [place] HCO3 (Bld) [Moles/Vol] 29 mmol/L High 22-26 [facility] Comment on above: Order Comment: Speci men Type: ARTERIAL BLOOD SPECIMENOrdering Facility: [facility] Address: [address] [place] [address] Performed By: #### A LLBG ####[facility] LABCLIA [id number] [place] [address] [place] Hematocrit (Bld) [Volume fraction] 32.8 % Low 39.0-51.0 [facility] Comment on above: Order Comment: Speci men Type: ARTERIAL BLOOD SPECIMENOrdering Facility: [facility] Address: [address] [place] [address] Performed By: #### A LLBG ####[facility] LABCLIA [id number] [place] [address] [place] Hemoglobin (Bld) [Mass/Vol] 10.6 g/dL Low 13.0-17.0 [facility] Comment on above: Order Comment: Speci men Type: ARTERIAL BLOOD SPECIMENOrdering Facility: [facility] Address: [address] [place] [address] Performed By: #### A LLBG ####[facility] LABCLIA [id number] [place] [id number] [place] Lactate [Moles/Vol] 1.2 mmol/L Normal 0.5-2.2 [facility] Comment on above: Order Comment: Speci men Type: ARTERIAL BLOOD SPECIMENOrdering Facility: [facility] Address: [address] [place] [address] Performed By: #### A LLBG ####[facility] LABCLIA [id number] [place] [id number] [place] Methemoglobin (Bld) [Mass fraction] 1.5 % Normal 0.0-1.5 [facility] Comment on above: Order Comment: Speci men Type: ARTERIAL BLOOD SPECIMENOrdering Facility: [facility] Address: [address] [id number] Performed By: #### A LLBG ####[facility] LABCLIA [id number] [address] [address] [place] O2 THERAPY RA=Room Air Normal [facility] Comment on above: Order Comment: Speci men Type: ARTERIAL BLOOD SPECIMENOrdering Facility: [facility] Address: [address] [phone] Performed By: #### A LLBG ####[facility] LABCLIA [id number] [address] [address] [place] Oxygen (Bld) [Partial pressure] 114 mm Hg High 85-95 [facility] Comment on above: Order Comment: Speci men Type: ARTERIAL BLOOD SPECIMENOrdering Facility: [facility] Address: [address] [phone] Performed By: #### A LLBG ####[facility] LABCLIA [id number] [place] [id number] [place] Oxygen adjusted to patient's actual temperature (Bld) [Partial pressure] 111 mmHg High 85-95 [facility] Comment on above: Order Comment: Speci men Type: ARTERIAL BLOOD SPECIMENOrdering Facility: [facility] Address: [address] [phone] Performed By: #### A LLBG ####[facility] LABCLIA [id number] [address] [address] [place] Oxyhemoglobin (BldA) [Mass fraction] 95 % Normal 95-98 [facility] Comment on above: Order Comment: Speci men Type: ARTERIAL BLOOD SPECIMENOrdering Facility: [facility] Address: [address] [phone] Performed By: #### A LLBG ####[facility] LABCLIA [id number] [place] [address] [place] pH (Bld) 7.40 [pH] Normal 7.35-7.45 [facility] Comment on above: Order Comment: Speci men Type: ARTERIAL BLOOD SPECIMENOrdering Facility: [facility] Address: [address] [place] [address] Performed By: #### A LLBG ####[facility] LABCLIA [id number] [place] [address] [place] pH adjusted to patient's actual temperature (Bld) 7.41 Normal 7.35-7.45 [facility] Comment on above: Order Comment: Speci men Type: ARTERIAL BLOOD SPECIMENOrdering Facility: [facility] Address: [address] [place] [address] Performed By: #### A LLBG ####[facility] LABCLIA [id number] [place] [address] [place] PO2 / FIO2 RATIO 543 mmHg Normal >300 [facility] Comment on above: Order Comment: Speci men Type: ARTERIAL BLOOD SPECIMENOrdering Facility: [facility] Address: [address] [place] [address] Performed By: #### A LLBG ####[facility] LABCLIA [id number] [place] [address] [place] Potassium [Moles/Vol] 4.3 mmol/L Normal 3.5-5.0 [facility] Comment on above: Order Comment: Speci men Type: ARTERIAL BLOOD SPECIMENOrdering Facility: [facility] Address: [address] [place] [address] Performed By: #### A LLBG ####[facility] LABCLIA [id number] [place] [id number] [place] Sodium [Moles/Vol] 132 mmol/L Low 136-144 [facility] Comment on above: Order Comment: Speci men Type: ARTERIAL BLOOD SPECIMENOrdering Facility: [facility] Address: [address] [place] [address] Performed By: #### A LLBG ####[facility] LABCLIA [id number] [place] [address] [place] BUN p dialysis SerPl-mCncon 11-27-2024 Urea nitrogen post dialysis [Mass/Vol] 18 mg/dL Normal 9-24 [facility] Comment on above: Order Comment: Speci men Type: BLOOD SPECIMENOrdering Facility: [facility] Address: [address] [place] [address] Performed By: #### 1 1064-3 ####[facility] LABCLIA [id number] [place] [address] [place] BUN [facility] Urea nitrogen pre dialysis [Mass/Vol] 50 mg/dL High 9-24 [facility] Comment on above: Order Comment: Speci men Type: BLOOD SPECIMENOrdering Facility: [facility] Address: [address] [place] [address] Performed By: #### 1 1065-0 ####[facility] LABCLIA [id number] [place] [address] [place] Basic Metabolic Profile (BMP )on 11-27-2024 BUN Normal 4-19 [facility] Comment on above: Result Comment: Canc elled via OM: MD Ordered Performed By: #### L 100.0100, L500.2500 ####[facility] [address] [place], [address] BUN/CRE Normal 10-20 [facility] Comment on above: Result Comment: Canc elled via OM: MD Ordered Performed By: #### L 100.0100, L500.2500 ####[facility] [address] [place], [address] Calcium Normal 7.6-11.0 [facility] Comment on above: Result Comment: Canc elled via OM: MD Ordered Performed By: #### L 100.0100, L500.2500 ####[facility] [address] [place], [address] CL Normal 98-108 [facility] Comment on above: Result Comment: Canc elled via OM: MD Ordered Performed By: #### L 100.0100, L500.2500 ####[facility] [address] [place], [address] CO2 Normal 21.0-32.0 [facility] Comment on above: Result Comment: Canc elled via OM: MD Ordered Performed By: #### L 100.0100, L500.2500 ####[facility] [address] [place], [address] CREAT,SERUM Normal 0.70-1.20 [facility] Comment on above: Result Comment: Canc elled via OM: MD Ordered Performed By: #### L 100.0100, L500.2500 ####[facility] [address] [place], [address] eGFR Normal >60 [facility] Comment on above: Result Comment: Canc elled via OM: MD Ordered Performed By: #### L 100.0100, L500.2500 ####[facility] [address] [place], [address] GAP Normal 5-15 [facility] Comment on above: Result Comment: Canc elled via OM: MD Ordered Performed By: #### L 100.0100, L500.2500 ####[facility] [address] [place], [address] GLU Normal 70-99 [facility] Comment on above: Result Comment: Canc elled via OM: MD Ordered Performed By: #### L 100.0100, L500.2500 ####[facility] [address] [place], [address] Potassium Normal 3.3-5.1 [facility] Comment on above: Result Comment: Canc elled via OM: MD Ordered Performed By: #### L 100.0100, L500.2500 ####[facility] [address] [place], [address] Basic Metabolic Profile (BMP) Normal 133-145 [facility] Comment on above: Result Comment: Canc elled via OM: MD Ordered Performed By: #### L 100.0100, L500.2500 ####[facility] [address] [place], [address] CASE MANAGEMon --2024 CASE MANAGEM Normal [facility] CBC W/Diff, Automatedon 07-0 Absolute Neut Normal 2.0-7.7 [facility] Comment on above: Result Comment: Canc elled via OM: MD Ordered Performed By: #### L 100.0100, L500.2500 ####[facility] [address] [place], [address] HCT Normal 40-54 [facility] Comment on above: Result Comment: Canc elled via OM: MD Ordered Performed By: #### L 100.0100, L500.2500 ####[facility] [address] [place], [address] HGB Normal 13.0-16.5 [facility] Comment on above: Result Comment: Canc elled via OM: MD Ordered Performed By: #### L 100.0100, L500.2500 ####[facility] [address] [place], [address] MCH Normal 27.0-32.0 [facility] Comment on above: Result Comment: Canc elled via OM: MD Ordered Performed By: #### L 100.0100, L500.2500 ####[facility] [address] [place], [address] MCHC Normal 32-36 [facility] Comment on above: Result Comment: Canc elled via OM: MD Ordered Performed By: #### L 100.0100, L500.2500 ####[facility] [address] [place], [address] MCV Normal 80-94 [facility] Comment on above: Result Comment: Canc elled via OM: MD Ordered Performed By: #### L 100.0100, L500.2500 ####[facility] [address] [place], [address] NEUT% Normal 47-70 [facility] Comment on above: Result Comment: Canc elled via OM: MD Ordered Performed By: #### L 100.0100, L500.2500 ####[facility] [address] [place], [address] PLT Normal 150-450 [facility] Comment on above: Result Comment: Canc elled via OM: MD Ordered Performed By: #### L 100.0100, L500.2500 ####[facility] [address] [place], [address] RBC Normal 4.6-6.2 [facility] Comment on above: Result Comment: Canc elled via OM: MD Ordered Performed By: #### L 100.0100, L500.2500 ####[facility] [address] [place], [address] RDW CV Normal 11.6-14.6 [facility] Comment on above: Result Comment: Canc elled via OM: MD Ordered Performed By: #### L 100.0100, L500.2500 ####[facility] [address] [place], [address] RDW SD Normal 35.1-43.9 [facility] Comment on above: Result Comment: Canc elled via OM: MD Ordered Performed By: #### L 100.0100, L500.2500 ####[facility] [address] [place], [address] WBC Normal 4.4-11.0 [facility] Comment on above: Result Comment: Canc elled via OM: MD Ordered Performed By: #### L 100.0100, L500.2500 ####[facility] [address] [place], [address] CBC panel Auto (Bld)on 11-27 Erythrocyte distribution width (RBC) [Ratio] 15.8 % High 11.5-15.0 [facility] Comment on above: Order Comment: Speci men Type: BLOOD SPECIMENOrdering Facility: [facility] Address: [address] [place] [address] Performed By: #### 5 8410-2 ####[facility] LABCLIA [id number] [place] [address] [place] Hematocrit (Bld) [Volume fraction] 31.4 % Low 39.0-51.0 [facility] Comment on above: Order Comment: Speci men Type: BLOOD SPECIMENOrdering Facility: [facility] Address: [address] [place] [address] Performed By: #### 5 8410-2 ####[facility] LABCLIA [id number] [place] [address] [place] Hemoglobin (Bld) [Mass/Vol] 10.1 g/dL Low 13.0-17.0 [facility] Comment on above: Order Comment: Speci men Type: BLOOD SPECIMENOrdering Facility: [facility] Address: [address] [place] [address] Performed By: #### 5 8410-2 ####[facility] LABCLIA [id number] [address] [address] [place] MCH (RBC) [Entitic mass] 28.4 pg Normal 26.0-34.0 [facility] Comment on above: Order Comment: Speci men Type: BLOOD SPECIMENOrdering Facility: [facility] Address: [address] [place] [address] Performed By: #### 5 8410-2 ####[facility] LABIA [id number] [place] [address] [place] MCHC (RBC) [Mass/Vol] 32.2 g/dL Normal 30.5-36.0 [facility] Comment on above: Order Comment: Speci men Type: BLOOD SPECIMENOrdering Facility: [facility] Address: [address] [place] [address] Performed By: #### 5 8410-2 ####[facility] LABIA [id number] [place] [address] [place] MCV (RBC) [Entitic vol] 88.2 fL Normal 80.0-100.0 [facility] Comment on above: Order Comment: Speci men Type: BLOOD SPECIMENOrdering Facility: [facility] Address: [address] [place] [address] Performed By: #### 5 8410-2 ####[facility] LABIA [id number] [place] [address] [place] Nucleated RBC (Bld) [#/Vol] 10*3/uL Normal <0.01 [facility] Comment on above: Order Comment: Speci men Type: BLOOD SPECIMENOrdering Facility: [facility] Address: [address] [place] [address] Performed By: #### 5 8410-2 ####[facility] LABIA [id number] [place] [address] [place] Platelet mean volume (Bld) [Entitic vol] 12.9 fL High 9.0-12.7 [facility] Comment on above: Order Comment: Speci men Type: BLOOD SPECIMENOrdering Facility: [facility] Address: [address] [place] [address] Performed By: #### 5 8410-2 ####[facility] LABCLIA [id number] [place] [address] [place] Platelets (Bld) [#/Vol] 141 10*3/uL Low 150-400 [facility] Comment on above: Order Comment: Speci men Type: BLOOD SPECIMENOrdering Facility: [facility] Address: [address] [place] [address] Performed By: #### 5 8410-2 ####[facility] LABIA [id number] [place] [address] [place] RBC (Bld) [#/Vol] 3.56 10*6/uL Low 4.20-6.00 [facility] Comment on above: Order Comment: Speci men Type: BLOOD SPECIMENOrdering Facility: [facility] Address: [address] [place] [address] Performed By: #### 5 8410-2 ####[facility] LABIA [id number] [place] [id number] [place] WBC (Bld) [#/Vol] 8.24 10*3/uL Normal 3.70-11.00 [facility] Comment on above: Order Comment: Speci men Type: BLOOD SPECIMENOrdering Facility: [facility] Address: [address] [place] [address] Performed By: #### 5 8410-2 ####[facility] LABIA [id number] [place] [id number] [place] CONSULT PROGon 11-27-2024 CONSULT PROG Normal [facility] CONSULT PROG Normal [facility] Comprehensive metabolic 2000 panelon 11-27-2024 Albumin [Mass/Vol] 3.1 g/dL Low 3.9-4.9 [facility] Comment on above: Order Comment: Speci men Type: BLOOD SPECIMENOrdering Facility: [facility] Address: [address] [place] [address] Performed By: #### 2 4323-8, 21914-0, 277-1 ####[facility] LABCLIA [id number] [place] [id number] [place] ALP [Catalytic activity/Vol] 62 U/L Normal 38-113 [facility] Comment on above: Order Comment: Speci men Type: BLOOD SPECIMENOrdering Facility: [facility] Address: [address] [place] [address] Performed By: #### 2 4323-8, 77259-6, 2776- ####[facility] LABIA [id number] [place] [address] [place] ALT [Catalytic activity/Vol] 30 U/L Normal 10-54 [facility] Comment on above: Order Comment: Speci men Type: BLOOD SPECIMENOrdering Facility: [facility] Address: [address] [place] [address] Performed By: #### 2 4323-8, 42918-7, 2776-05 ####[facility] LABIA [id number] [place] [address] [place] Anion gap [Moles/Vol] 13 mmol/L Normal 8-15 [facility] Comment on above: Order Comment: Speci men Type: BLOOD SPECIMENOrdering Facility: [facility] Address: [address] [place] [address] Performed By: #### 2 4323-8, 45875-4, 27711-20 ####[facility] LABIA [id number] [place] [id number] [place] AST [Catalytic activity/Vol] 23 U/L Normal 14-40 [facility] Comment on above: Order Comment: Speci men Type: BLOOD SPECIMENOrdering Facility: [facility] Address: [address] [place] [address] Result Comment: Resu lts may be falsely increased due to interference from hemolysis. Suggest reorder as clinically indicated. Performed By: #### 2 4323-8, , 2776-05 ####[facility] LABCLIA [id number] [address] [address] [place] Bilirubin [Mass/Vol] 0.2 mg/dL Normal 0.2-1.3 [facility] Comment on above: Order Comment: Speci men Type: BLOOD SPECIMENOrdering Facility: [facility] Address: [address] [place] [address] Performed By: #### 2 4323-8, , 2776-05 ####[facility] LABCLIA [id number] [place] [id number] [place] Calcium [Mass/Vol] 8.6 mg/dL Normal 8.5-10.2 [facility] Comment on above: Order Comment: Speci men Type: BLOOD SPECIMENOrdering Facility: [facility] Address: [address] [place] [address] Performed By: #### 2 4323-8, , 2776-05 ####[facility] LABIA [id number] [place] [id number] [place] Chloride [Moles/Vol] 93 mmol/L Low 98-107 [facility] Comment on above: Order Comment: Speci men Type: BLOOD SPECIMENOrdering Facility: [facility] Address: [address] [place], [place] [address] Performed By: #### 2 4323-8, , 2776-05 ####[facility] LABIA [id number] [address] [address] [place] CO2 [Moles/Vol] 27 mmol/L Normal 22-30 [facility] Comment on above: Order Comment: Speci men Type: BLOOD SPECIMENOrdering Facility: [facility] Address: [address] [place], [place] [address] Performed By: #### 2 4323, , 2776-05 ####[facility] LABIA [id number] [address] [address] [place] Creatinine [Mass/Vol] 4.19 mg/dL High 0.73-1.22 [facility] Comment on above: Order Comment: Speclena aleman Type: BLOOD SPECIMENOrdering Facility: [facility] Address: [address] [place] [address] Performed By: #### 2 432-8, , 2776-05 ####[facility] LABIA [id number] [address] [address] [place] Creatinine and Glomerular filtration rate.predicted panel (S/P/Bld) 13 mL/min/1.73m??? Low >=60 [facility] Comment on above: Order Comment: Lesvia aleman Type: BLOOD SPECIMENOrdering Facility: [facility] Address: [address] [place] [address] Result Comment: Tessa mated Glomerular Filtration Rate [...] reflect actual GFR. Performed By: #### 2 4323-8, , 2776-05 ####[facility] LABIA [id number] [address] [address] [place] Glucose [Mass/Vol] 174 mg/dL High 74-99 [facility] Comment on above: Order Comment: Speci men Type: BLOOD SPECIMENOrdering Facility: [facility] Address: [address] [place] [address] Result Comment: The [place] [employer] (ADA) provides guidance for cutoff values for fasting glucose and random glucose. The ADA defines fasting as no caloric intake for at least 8 hours. Fasting plasma glucose results between 100 to 125 mg/dL indicate increased risk for diabetes (prediabetes).Fasting plasma glucose results greater than or equal to 126 mg/dL meet the criteria for diagnosis of diabetes. In the absence of unequivocal hyperglycemia, results should be confirmed by repeat testing. In a patient with classic symptoms of hyperglycemia or hyperglycemic crisis, random plasma glucose results greater than or equal to 200 mg/dL meet the criteria for diagnosis of diabetes.Reference: Standards of Medical Care in Diabetes 2016, [place] [employer]. Diabetes Care. 2016.39(Suppl 1). Performed By: #### 2 4323-8, , 2776-05 ####[facility] LABCLIA [id number] [place] [address] [place] Potassium [Moles/Vol] 4.2 mmol/L Normal 3.7-5.1 [facility] Comment on above: Order Comment: Speci men Type: BLOOD SPECIMENOrdering Facility: [facility] Address: [address] [place] [address] Performed By: #### 2 4323-8, , 2776-05 ####[facility] LABCLIA [id number] [place] [address] [place] Protein [Mass/Vol] 6.0 g/dL Low 6.3-8.0 [facility] Comment on above: Order Comment: Speci men Type: BLOOD SPECIMENOrdering Facility: [facility] Address: [address] [place] [address] Performed By: #### 2 4323-8, , 2776-05 ####[facility] LABCLIA [id number] [address] [address] [place] Sodium [Moles/Vol] 133 mmol/L Low 136-144 [facility] Comment on above: Order Comment: Speci men Type: BLOOD SPECIMENOrdering Facility: [facility] Address: [address] [place] [address] Performed By: #### 2 4323-8, , 2776-05 ####[facility] LABCLIA [id number] [address] [address] [place] Urea nitrogen [Mass/Vol] 43 mg/dL High 9-24 [facility] Comment on above: Order Comment: Speci men Type: BLOOD SPECIMENOrdering Facility: [facility] Address: [address] [place] [address] Performed By: #### 2 4323-8, 33617-0, 2776- ####[facility] LABCLIA [id number] [place] [address] [place] Magnesium SerPl-mCncon 11-27 Magnesium [Mass/Vol] 2.2 mg/dL Normal 1.7-2.3 [facility] Comment on above: Order Comment: Speci men Type: BLOOD SPECIMENOrdering Facility: [facility] Address: [address] [place] [address] Performed By: #### 2 4323-8, , 2776-05 ####[facility] LABIA [id number] [place] [address] [place] Phosphate SerPl-mCncon 11-27 Phosphate [Mass/Vol] 5.9 mg/dL High 2.7-4.8 [facility] Comment on above: Order Comment: Speci men Type: BLOOD SPECIMENOrdering Facility: [facility] Address: [address] [place] [address] Result Comment: Resu lt rechecked. Performed By: #### 2 4323-8, , 2776-05 ####[facility] LABCLIA [id number] [place] [id number] [place] TYPE + SCREENon 11-27-2024 ABO A Normal [facility] Comment on above: Order Comment: Speci men Type: BLOOD SPECIMENOrdering Facility: [facility] Address: [address] [place] [address] Performed By: #### T SCR ####[facility] BLOOD BANKCLIA [id number] [place] [id number] [place] Rh Nom (Bld) Positive Normal [facility] Comment on above: Order Comment: Speci men Type: BLOOD SPECIMENOrdering Facility: [facility] Address: [address] [place] [address] Performed By: #### T SCR ####[facility] BLOOD BANKCLIA [id number] [place] [address] [place] TYPE AND SCREEN EXPIRATION 11/30/2024 23:59 Normal [facility] Comment on above: Order Comment: Speci men Type: BLOOD SPECIMENOrdering Facility: [facility] Address: [address] [place] [address] Performed By: #### T SCR ####CC [facility] BLOOD BANKCLIA [id number] [address] [place] Urea nitrogen post dialysis [Mass/Vol]on 11-27-2024 UREA REDUCTION RATIO WITH BUNPR 64 % Normal [facility] Comment on above: Order Comment: Speci men Type: BLOOD SPECIMENOrdering Facility: [facility] Address: [address] [place] [address] Performed By: #### 1 1064-3 ####[facility] LABCLIA [id number] [place] [address] [place] XR CHEST 1V FRONTAL PORTon 0 11-27-2024 XR CHEST 1V FRONTAL PORT Normal [facility] XR CHEST 1V FRONTAL PORT Normal [facility] ANES POSTPROC EVALon 025 ANES POSTPROC EVAL Normal [facility] ANES PRE-OPon 11-26-2024 ANES PRE-OP Normal [facility] ARTERIAL BLOOD GASESon 11-26 Base excess Calc (Bld) [Moles/Vol] 4 mmol/L High 0-2 [facility] Comment on above: Order Comment: Speci men Type: ARTERIAL BLOOD SPECIMENOrdering Facility: [facility] Address: [address] [place] [address] Performed By: #### A LLBG ####[facility] LABCLIA [id number] [place] [address] [place] Body temperature 98.6 [degF] Normal [facility] Comment on above: Order Comment: Speci men Type: ARTERIAL BLOOD SPECIMENOrdering Facility: [facility] Address: [address] [place] [address] Performed By: #### A LLBG ####[facility] LABIA [id number] [place] [address] [place] Calcium.ionized (Bld) [Mass/Vol] 1.13 mmol/L Normal 1.08-1.30 [facility] Comment on above: Order Comment: Speci men Type: ARTERIAL BLOOD SPECIMENOrdering Facility: [facility] Address: [address] [place] [address] Performed By: #### A LLBG ####[facility] LABIA [id number] [place] [address] [place] Calcium.ionized adjusted to pH 7.4 (BldA) [Moles/Vol] 1.13 mmol/L Normal 1.08-1.30 [facility] Comment on above: Order Comment: Speci men Type: ARTERIAL BLOOD SPECIMENOrdering Facility: [facility] Address: [address] [place] [address] Performed By: #### A LLBG ####[facility] LABIA [id number] [place] [address] [place] Carboxyhemoglobin (BldA) [Mass fraction] 0.0 % Normal 0.0-2.0 [facility] Comment on above: Order Comment: Speci men Type: ARTERIAL BLOOD SPECIMENOrdering Facility: [facility] Address: [address] [place] [address] Result Comment: Carb oxyhemoglobin Reference Range for Smokers: 2.0-8.0% Performed By: #### A LLBG ####[facility] LABCLIA [id number] [facility] [address] [place] [address] [place] CO2 (Bld) [Partial pressure] 48 mm Hg High 36-46 [facility] Comment on above: Order Comment: Speci men Type: ARTERIAL BLOOD SPECIMENOrdering Facility: [facility] Address: [address] [place] [address] Performed By: #### A LLBG ####[facility] LABCLIA [id number] [place] [address] [place] Glucose [Mass/Vol] 146 mg/dL High 60-105 [facility] Comment on above: Order Comment: Speci men Type: ARTERIAL BLOOD SPECIMENOrdering Facility: [facility] Address: [address] [place] [address] Performed By: #### A LLBG ####[facility] LABCLIA [id number] [place] [id number] [place] HCO3 (Bld) [Moles/Vol] 29 mmol/L High 22-26 [facility] Comment on above: Order Comment: Speci men Type: ARTERIAL BLOOD SPECIMENOrdering Facility: [facility] Address: [address] [place] [address] Performed By: #### A LLBG ####[facility] LABCLIA [id number] [place] [id number] [place] Hematocrit (Bld) [Volume fraction] 32.1 % Low 39.0-51.0 [facility] Comment on above: Order Comment: Speci men Type: ARTERIAL BLOOD SPECIMENOrdering Facility: [facility] Address: [address] [place], [place] [id number] Performed By: #### A LLBG ####[facility] LABCLIA [id number] [facility] [place] [id number] [place] Hemoglobin (Bld) [Mass/Vol] 10.4 g/dL Low 13.0-17.0 [facility] Comment on above: Order Comment: Speci men Type: ARTERIAL BLOOD SPECIMENOrdering Facility: [facility] Address: [address] [place] [address] Performed By: #### A LLBG ####[facility] LABCLIA [id number] [place] [id number] [place] Lactate [Moles/Vol] 0.7 mmol/L Normal 0.5-2.2 [facility] Comment on above: Order Comment: Speci men Type: ARTERIAL BLOOD SPECIMENOrdering Facility: [facility] Address: [address] [place] [address] Performed By: #### A LLBG ####[facility] LABCLIA [id number] [place] [address] [place] LITERS 2 Liters/min Normal [facility] Comment on above: Order Comment: Speci men Type: ARTERIAL BLOOD SPECIMENOrdering Facility: [facility] Address: [address] [place] [address] Performed By: #### A LLBG ####[facility] LABCLIA [id number] [place] [address] [place] Methemoglobin (Bld) [Mass fraction] 0.5 % Normal 0.0-1.5 [facility] Comment on above: Order Comment: Speci men Type: ARTERIAL BLOOD SPECIMENOrdering Facility: [facility] Address: [address] [place] [address] Performed By: #### A LLBG ####[facility] LABCLIA [id number] [place] [id number] [place] O2 THERAPY NC = Nasal Cannula Normal [facility] Comment on above: Order Comment: Speci men Type: ARTERIAL BLOOD SPECIMENOrdering Facility: [facility] Address: [address] [place] [address] Performed By: #### A LLBG ####[facility] LABCLIA [id number] [address] [place] [address] [place] Oxygen (Bld) [Partial pressure] 158 mm Hg High 85-95 [facility] Comment on above: Order Comment: Speci men Type: ARTERIAL BLOOD SPECIMENOrdering Facility: [facility] Address: [address] [place] [address] Performed By: #### A LLBG ####[facility] LABCLIA [id number] [place] [id number] [place] Oxyhemoglobin (BldA) [Mass fraction] 97 % Normal 95-98 [facility] Comment on above: Order Comment: Speci men Type: ARTERIAL BLOOD SPECIMENOrdering Facility: [facility] Address: [address] [place] [address] Performed By: #### A LLBG ####[facility] LABCLIA [id number] [place] [id number] [place] pH (Bld) 7.40 [pH] Normal 7.35-7.45 [facility] Comment on above: Order Comment: Speci men Type: ARTERIAL BLOOD SPECIMENOrdering Facility: [facility] Address: [address] [place] [address] Performed By: #### A LLBG ####[facility] LABCLIA [id number] [place] [id number] [place] Potassium [Moles/Vol] 3.8 mmol/L Normal 3.5-5.0 [facility] Comment on above: Order Comment: Speci men Type: ARTERIAL BLOOD SPECIMENOrdering Facility: [facility] Address: [address] [place] [address] Performed By: #### A LLBG ####[facility] LABIA [id number] [place] [id number] [place] Sodium [Moles/Vol] 134 mmol/L Low 136-144 [facility] Comment on above: Order Comment: Speci men Type: ARTERIAL BLOOD SPECIMENOrdering Facility: [facility] Address: [address] [place] [address] Performed By: #### A LLBG ####[facility] LABCLIA [id number] [place] [address] [place] Base excess Calc (Bld) [Moles/Vol] 4 mmol/L High 0-2 [facility] Comment on above: Order Comment: Speci men Type: ARTERIAL BLOOD SPECIMENOrdering Facility: [facility] Address: [address] [place] [address] Performed By: #### A LLBG ####[facility] LABCLIA [id number] [place] [address] [place] Body temperature 97.16 [degF] Normal [facility] Comment on above: Order Comment: Speci men Type: ARTERIAL BLOOD SPECIMENOrdering Facility: [facility] Address: [address] [place] [address] Performed By: #### A LLBG ####[facility] LABCLIA [id number] [place] [address] [place] Calcium.ionized (Bld) [Mass/Vol] 1.11 mmol/L Normal 1.08-1.30 [facility] Comment on above: Order Comment: Speci men Type: ARTERIAL BLOOD SPECIMENOrdering Facility: [facility] Address: [address] [place] [address] Performed By: #### A LLBG ####[facility] LABCLIA [id number] [place] [address] [place] Calcium.ionized adjusted to pH 7.4 (BldA) [Moles/Vol] 1.10 mmol/L Normal 1.08-1.30 [facility] Comment on above: Order Comment: Speci men Type: ARTERIAL BLOOD SPECIMENOrdering Facility: [facility] Address: [address] [place] [address] Performed By: #### A LLBG ####[facility] LABCLIA [id number] [place] [id number] [place] Carboxyhemoglobin (BldA) [Mass fraction] 0.9 % Normal 0.0-2.0 [facility] Comment on above: Order Comment: Speci men Type: ARTERIAL BLOOD SPECIMENOrdering Facility: [facility] Address: [address] [place] [address] Result Comment: Carb oxyhemoglobin Reference Range for Smokers: 2.0-8.0% Performed By: #### A LLBG ####[facility] LABCLIA [id number] [place] [address] [place] CO2 (Bld) [Partial pressure] 48 mm Hg High 36-46 [facility] Comment on above: Order Comment: Speci men Type: ARTERIAL BLOOD SPECIMENOrdering Facility: [facility] Address: [address] [place] [address] Performed By: #### A LLBG ####[facility] LABCLIA [id number] [address] [place] CO2 adjusted to patient's actual temperature (Bld) [Partial pressure] 46 mmHg Normal 36-46 [facility] Comment on above: Order Comment: Speci men Type: ARTERIAL BLOOD SPECIMENOrdering Facility: [facility] Address: [address] [place] [address] Performed By: #### A LLBG ####[facility] LABCLIA [id number] [place] [address] [place] Glucose [Mass/Vol] 105 mg/dL Normal 60-105 [facility] Comment on above: Order Comment: Speci men Type: ARTERIAL BLOOD SPECIMENOrdering Facility: [facility] Address: [address] [place] [address] Performed By: #### A LLBG ####[facility] LABCLIA [id number] [place] [address] [place] HCO3 (Bld) [Moles/Vol] 29 mmol/L High 22-26 [facility] Comment on above: Order Comment: Speci men Type: ARTERIAL BLOOD SPECIMENOrdering Facility: [facility] Address: [address] [place] [address] Performed By: #### A LLBG ####[facility] LABCLIA [id number] [place] [address] [place] Hematocrit (Bld) [Volume fraction] 33.0 % Low 39.0-51.0 [facility] Comment on above: Order Comment: Speci men Type: ARTERIAL BLOOD SPECIMENOrdering Facility: [facility] Address: [address] [place] [address] Performed By: #### A LLBG ####[facility] LABCLIA [id number] [place] [address] [place] Hemoglobin (Bld) [Mass/Vol] 10.7 g/dL Low 13.0-17.0 [facility] Comment on above: Order Comment: Speci men Type: ARTERIAL BLOOD SPECIMENOrdering Facility: [facility] Address: [address] [place] [address] Performed By: #### A LLBG ####[facility] LABCLIA [id number] [place] [address] [place] Lactate [Moles/Vol] 0.7 mmol/L Normal 0.5-2.2 [facility] Comment on above: Order Comment: Speci men Type: ARTERIAL BLOOD SPECIMENOrdering Facility: [facility] Address: [address] [place] [address] Performed By: #### A LLBG ####[facility] LABCLIA [id number] [place] [id number] [place] LITERS 4 Liters/min Normal [facility] Comment on above: Order Comment: Speci men Type: ARTERIAL BLOOD SPECIMENOrdering Facility: [facility] Address: [address] [place] [address] Performed By: #### A LLBG ####[facility] LABCLIA [id number] [address] [place] [address] [place] Methemoglobin (Bld) [Mass fraction] 1.0 % Normal 0.0-1.5 [facility] Comment on above: Order Comment: Speci men Type: ARTERIAL BLOOD SPECIMENOrdering Facility: [facility] Address: [address] [place] [id number] Performed By: #### A LLBG ####[facility] LABCLIA [id number] [address] [place] [address] [place] O2 THERAPY NC = Nasal Cannula Normal [facility] Comment on above: Order Comment: Speci men Type: ARTERIAL BLOOD SPECIMENOrdering Facility: [facility] Address: [address] [place] [id number] Performed By: #### A LLBG ####[facility] LABCLIA [id number] [address] [address] [place] Oxygen (Bld) [Partial pressure] 154 mm Hg High 85-95 [facility] Comment on above: Order Comment: Speci men Type: ARTERIAL BLOOD SPECIMENOrdering Facility: [facility] Address: [address] [place] [id number] Performed By: #### A LLBG ####[facility] LABCLIA [id number] [address] [place] [address] [place] Oxygen adjusted to patient's actual temperature (Bld) [Partial pressure] 150 mmHg High 85-95 [facility] Comment on above: Order Comment: Speci men Type: ARTERIAL BLOOD SPECIMENOrdering Facility: [facility] Address: [address] [place] [address] Performed By: #### A LLBG ####[facility] LABCLIA [id number] [address] [address] [place] Oxyhemoglobin (BldA) [Mass fraction] 97 % Normal 95-98 [facility] Comment on above: Order Comment: Speci men Type: ARTERIAL BLOOD SPECIMENOrdering Facility: [facility] Address: [address] [place] [address] Performed By: #### A LLBG ####[facility] LABCLIA [id number] [place] [address] [place] pH (Bld) 7.40 [pH] Normal 7.35-7.45 [facility] Comment on above: Order Comment: Speci men Type: ARTERIAL BLOOD SPECIMENOrdering Facility: [facility] Address: [address] [place] [address] Performed By: #### A LLBG ####[facility] LABIA [id number] [place] [address] [place] pH adjusted to patient's actual temperature (Bld) 7.41 Normal 7.35-7.45 [facility] Comment on above: Order Comment: Speci men Type: ARTERIAL BLOOD SPECIMENOrdering Facility: [facility] Address: [address] [place] [address] Performed By: #### A LLBG ####[facility] LABIA [id number] [place] [id number] [place] Potassium [Moles/Vol] 3.7 mmol/L Normal 3.5-5.0 [facility] Comment on above: Order Comment: Speci men Type: ARTERIAL BLOOD SPECIMENOrdering Facility: [facility] Address: [address] [place] [address] Performed By: #### A LLBG ####[facility] LABIA [id number] [place] [id number] [place] Sodium [Moles/Vol] 134 mmol/L Low 136-144 [facility] Comment on above: Order Comment: Speci men Type: ARTERIAL BLOOD SPECIMENOrdering Facility: [facility] Address: [address] [place] [address] Performed By: #### A LLBG ####[facility] LABIA [id number] [place] [id number] [place] Base deficit (BldA) [Moles/Vol] -1 mmol/L Normal -2-0 [facility] Comment on above: Order Comment: Speci men Type: ARTERIAL BLOOD SPECIMENOrdering Facility: [facility] Address: [address] [place] [address] Performed By: #### A LLBG ####[facility] LABCLIA [id number] [place] [address] [place] Body temperature 97.7 [degF] Normal [facility] Comment on above: Order Comment: Speci men Type: ARTERIAL BLOOD SPECIMENOrdering Facility: [facility] Address: [address] [place] [address] Performed By: #### A LLBG ####[facility] LABCLIA [id number] [place] [address] [place] Calcium.ionized (Bld) [Mass/Vol] 1.10 mmol/L Normal 1.08-1.30 [facility] Comment on above: Order Comment: Speci men Type: ARTERIAL BLOOD SPECIMENOrdering Facility: [facility] Address: [address] [place] [address] Performed By: #### A LLBG ####[facility] LABIA [id number] [place] [address] [place] Calcium.ionized adjusted to pH 7.4 (BldA) [Moles/Vol] 1.09 mmol/L Normal 1.08-1.30 [facility] Comment on above: Order Comment: Speci men Type: ARTERIAL BLOOD SPECIMENOrdering Facility: [facility] Address: [address] [place] [address] Performed By: #### A LLBG ####[facility] LABIA [id number] [place] [address] [place] Carboxyhemoglobin (BldA) [Mass fraction] 1.0 % Normal 0.0-2.0 [facility] Comment on above: Order Comment: Speci men Type: ARTERIAL BLOOD SPECIMENOrdering Facility: [facility] Address: [address] [place] [address] Result Comment: Carb oxyhemoglobin Reference Range for Smokers: 2.0-8.0% Performed By: #### A LLBG ####[facility] LABCLIA [id number] [address] [address] [place] CO2 (Bld) [Partial pressure] 42 mm Hg Normal 36-46 [facility] Comment on above: Order Comment: Speci men Type: ARTERIAL BLOOD SPECIMENOrdering Facility: [facility] Address: [address] [place] [address] Performed By: #### A LLBG ####[facility] LABCLIA [id number] [place] [address] [place] CO2 adjusted to patient's actual temperature (Bld) [Partial pressure] 41 mmHg Normal 36-46 [facility] Comment on above: Order Comment: Speci men Type: ARTERIAL BLOOD SPECIMENOrdering Facility: [facility] Address: [address] [place] [address] Performed By: #### A LLBG ####[facility] LABCLIA [id number] [place] [address] [place] Glucose [Mass/Vol] 81 mg/dL Normal 60-105 [facility] Comment on above: Order Comment: Speci men Type: ARTERIAL BLOOD SPECIMENOrdering Facility: [facility] Address: [address] [place] [address] Performed By: #### A LLBG ####[facility] LABCLIA [id number] [place] [id number] [place] HCO3 (Bld) [Moles/Vol] 24 mmol/L Normal 22-26 [facility] Comment on above: Order Comment: Speci men Type: ARTERIAL BLOOD SPECIMENOrdering Facility: [facility] Address: [address] [place] [address] Performed By: #### A LLBG ####[facility] LABCLIA [id number] [place] [address] [place] Hematocrit (Bld) [Volume fraction] 32.8 % Low 39.0-51.0 [facility] Comment on above: Order Comment: Speci men Type: ARTERIAL BLOOD SPECIMENOrdering Facility: [facility] Address: [address] [place] [address] Performed By: #### A LLBG ####[facility] LABCLIA [id number] [place] [address] [place] Hemoglobin (Bld) [Mass/Vol] 10.6 g/dL Low 13.0-17.0 [facility] Comment on above: Order Comment: Speci men Type: ARTERIAL BLOOD SPECIMENOrdering Facility: [facility] Address: [address] [place] [address] Performed By: #### A LLBG ####[facility] LABIA [id number] [place] [address] [place] Lactate [Moles/Vol] 0.5 mmol/L Normal 0.5-2.2 [facility] Comment on above: Order Comment: Speci men Type: ARTERIAL BLOOD SPECIMENOrdering Facility: [facility] Address: [address] [place] [address] Performed By: #### A LLBG ####[facility] LABIA [id number] [place] [address] [place] LITERS 2 Liters/min Normal [facility] Comment on above: Order Comment: Speci men Type: ARTERIAL BLOOD SPECIMENOrdering Facility: [facility] Address: [address] [place] [address] Performed By: #### A LLBG ####[facility] LABIA [id number] [place] [address] [place] Methemoglobin (Bld) [Mass fraction] 0.9 % Normal 0.0-1.5 [facility] Comment on above: Order Comment: Speci men Type: ARTERIAL BLOOD SPECIMENOrdering Facility: [facility] Address: [address] [place] [address] Performed By: #### A LLBG ####[facility] LABCLIA [id number] [address] [place] [address] [place] O2 THERAPY NC = Nasal Cannula Normal [facility] Comment on above: Order Comment: Speci men Type: ARTERIAL BLOOD SPECIMENOrdering Facility: [facility] Address: [address] [place] [id number] Performed By: #### A LLBG ####[facility] LABCLIA [id number] [address] [place] [address] [place] Oxygen (Bld) [Partial pressure] 152 mm Hg High 85-95 [facility] Comment on above: Order Comment: Speci men Type: ARTERIAL BLOOD SPECIMENOrdering Facility: [facility] Address: [address] [place], [place] [id number] Performed By: #### A LLBG ####[facility] LABCLIA [id number] [address] [place] [address] [place] Oxygen adjusted to patient's actual temperature (Bld) [Partial pressure] 149 mmHg High 85-95 [facility] Comment on above: Order Comment: Speci men Type: ARTERIAL BLOOD SPECIMENOrdering Facility: [facility] Address: [address] [place] [id number] Performed By: #### A LLBG ####[facility] LABCLIA [id number] [address] [place] [address] [place] Oxyhemoglobin (BldA) [Mass fraction] 97 % Normal 95-98 [facility] Comment on above: Order Comment: Speci men Type: ARTERIAL BLOOD SPECIMENOrdering Facility: [facility] Address: [address] [place] [address] Performed By: #### A LLBG ####[facility] LABCLIA [id number] [place] [address] [place] pH (Bld) 7.37 [pH] Normal 7.35-7.45 [facility] Comment on above: Order Comment: Speci men Type: ARTERIAL BLOOD SPECIMENOrdering Facility: [facility] Address: [address] [place] [address] Performed By: #### A LLBG ####[facility] LABCLIA [id number] [place] [address] [place] pH adjusted to patient's actual temperature (Bld) 7.38 Normal 7.35-7.45 [facility] Comment on above: Order Comment: Speci men Type: ARTERIAL BLOOD SPECIMENOrdering Facility: [facility] Address: [address] [place] [address] Performed By: #### A LLBG ####[facility] LABCLIA [id number] [place] [address] [place] Potassium [Moles/Vol] 5.2 mmol/L High 3.5-5.0 [facility] Comment on above: Order Comment: Speci men Type: ARTERIAL BLOOD SPECIMENOrdering Facility: [facility] Address: [address] [place] [address] Performed By: #### A LLBG ####[facility] LABCLIA [id number] [place] [address] [place] Sodium [Moles/Vol] 128 mmol/L Low 136-144 [facility] Comment on above: Order Comment: Speci men Type: ARTERIAL BLOOD SPECIMENOrdering Facility: [facility] Address: [address] [place] [address] Performed By: #### A LLBG ####[facility] LABCLIA [id number] [place] [address] [place] Base deficit (BldA) [Moles/Vol] mmol/L Normal -2-0 [facility] Comment on above: Order Comment: Speci men Type: ARTERIAL BLOOD SPECIMENOrdering Facility: [facility] Address: [address] [place] [address] Performed By: #### A LLBG ####[facility] [id number] [place] [address] [place] Body temperature 97.52 [degF] Normal [facility] Comment on above: Order Comment: Speci men Type: ARTERIAL BLOOD SPECIMENOrdering Facility: [facility] Address: [address] [place] [address] Performed By: #### A LLBG ####[facility] [id number] [place] [address] [place] Calcium.ionized (Bld) [Mass/Vol] 1.07 mmol/L Low 1.08-1.30 [facility] Comment on above: Order Comment: Speci men Type: ARTERIAL BLOOD SPECIMENOrdering Facility: [facility] Address: [address] [place] [address] Performed By: #### A LLBG ####[facility] [id number] [place] [address] [place] Calcium.ionized adjusted to pH 7.4 (BldA) [Moles/Vol] 1.06 mmol/L Low 1.08-1.30 [facility] Comment on above: Order Comment: Speci men Type: ARTERIAL BLOOD SPECIMENOrdering Facility: [facility] Address: [address] [place] [address] Performed By: #### A LLBG ####[facility] [id number] [place] [address] [place] Carboxyhemoglobin (BldA) [Mass fraction] 0.4 % Normal 0.0-2.0 [facility] Comment on above: Order Comment: Speci men Type: ARTERIAL BLOOD SPECIMENOrdering Facility: [facility] Address: [address] [place] [address] Result Comment: Carb oxyhemoglobin Reference Range for Smokers: 2.0-8.0% Performed By: #### A LLBG ####[facility] LABCLIA [id number] [facility] [address] [place] [address] [place] CO2 (Bld) [Partial pressure] 44 mm Hg Normal 36-46 [facility] Comment on above: Order Comment: Speci men Type: ARTERIAL BLOOD SPECIMENOrdering Facility: [facility] Address: [address] [place] [address] Performed By: #### A LLBG ####[facility] LABCLIA [id number] [address], [place] [address] [place] CO2 adjusted to patient's actual temperature (Bld) [Partial pressure] 42 mmHg Normal 36-46 [facility] Comment on above: Order Comment: Speci men Type: ARTERIAL BLOOD SPECIMENOrdering Facility: [facility] Address: [address] [place] [address] Performed By: #### A LLBG ####[facility] LABCLIA [id number] [place] [address] [place] Glucose [Mass/Vol] 142 mg/dL High 60-105 [facility] Comment on above: Order Comment: Speci men Type: ARTERIAL BLOOD SPECIMENOrdering Facility: [facility] Address: [address] [place] [address] Performed By: #### A LLBG ####[facility] LABCLIA [id number] [place] [id number] [place] HCO3 (Bld) [Moles/Vol] 25 mmol/L Normal 22-26 [facility] Comment on above: Order Comment: Speci men Type: ARTERIAL BLOOD SPECIMENOrdering Facility: [facility] Address: [address] [place] [address] Performed By: #### A LLBG ####[facility] LABCLIA [id number] [address] [address] [place] Hematocrit (Bld) [Volume fraction] 33.9 % Low 39.0-51.0 [facility] Comment on above: Order Comment: Speci men Type: ARTERIAL BLOOD SPECIMENOrdering Facility: [facility] Address: [address] [place] [address] Performed By: #### A LLBG ####[facility] LABIA [id number] [address] [address] [place] Hemoglobin (Bld) [Mass/Vol] 11.0 g/dL Low 13.0-17.0 [facility] Comment on above: Order Comment: Speci men Type: ARTERIAL BLOOD SPECIMENOrdering Facility: [facility] Address: [address] [place] [address] Performed By: #### A LLBG ####[facility] LABIA [id number] [place] [address] [place] Lactate [Moles/Vol] 0.9 mmol/L Normal 0.5-2.2 [facility] Comment on above: Order Comment: Speci men Type: ARTERIAL BLOOD SPECIMENOrdering Facility: [facility] Address: [address] [place] [address] Performed By: #### A LLBG ####[facility] LABIA [id number] [place] [address] [place] LITERS 1 Liters/min Normal [facility] Comment on above: Order Comment: Speci men Type: ARTERIAL BLOOD SPECIMENOrdering Facility: [facility] Address: [address] [place] [address] Performed By: #### A LLBG ####[facility] LABIA [id number] [place] [id number] [place] Methemoglobin (Bld) [Mass fraction] 0.5 % Normal 0.0-1.5 [facility] Comment on above: Order Comment: Speci men Type: ARTERIAL BLOOD SPECIMENOrdering Facility: [facility] Address: [address] [place] [address] Performed By: #### A LLBG ####[facility] LABCLIA [id number] [address] [place] [address] [place] O2 THERAPY NC = Nasal Cannula Normal [facility] Comment on above: Order Comment: Speci men Type: ARTERIAL BLOOD SPECIMENOrdering Facility: [facility] Address: [address] [place], [place] [phone] Performed By: #### A LLBG ####[facility] LABCLIA [id number] [address] [place] [address] [place] Oxygen (Bld) [Partial pressure] 131 mm Hg High 85-95 [facility] Comment on above: Order Comment: Speci men Type: ARTERIAL BLOOD SPECIMENOrdering Facility: [facility] Address: [address] [place] [address] Performed By: #### A LLBG ####[facility] LABCLIA [id number] [address] [address] [place] Oxygen adjusted to patient's actual temperature (Bld) [Partial pressure] 127 mmHg High 85-95 [facility] Comment on above: Order Comment: Speci men Type: ARTERIAL BLOOD SPECIMENOrdering Facility: [facility] Address: [address] [place], [place] [id number] Performed By: #### A LLBG ####[facility] LABCLIA [id number] [address] [place] [address] [place] Oxyhemoglobin (BldA) [Mass fraction] 96 % Normal 95-98 [facility] Comment on above: Order Comment: Speci men Type: ARTERIAL BLOOD SPECIMENOrdering Facility: [facility] Address: [address] [place], [place] [address] Performed By: #### A LLBG ####[facility] LABCLIA [id number] [address] [place] [address] [place] pH (Bld) 7.37 [pH] Normal 7.35-7.45 [facility] Comment on above: Order Comment: Speci men Type: ARTERIAL BLOOD SPECIMENOrdering Facility: [facility] Address: [address] [place] [address] Performed By: #### A LLBG ####[facility] LABIA [id number] [place] [address] [place] pH adjusted to patient's actual temperature (Bld) 7.38 Normal 7.35-7.45 [facility] Comment on above: Order Comment: Speci men Type: ARTERIAL BLOOD SPECIMENOrdering Facility: [facility] Address: [address] [place] [address] Performed By: #### A LLBG ####[facility] LABIA [id number] [place] [address] [place] Potassium [Moles/Vol] 5.4 mmol/L High 3.5-5.0 [facility] Comment on above: Order Comment: Speci men Type: ARTERIAL BLOOD SPECIMENOrdering Facility: [facility] Address: [address] [place] [address] Performed By: #### A LLBG ####[facility] LABIA [id number] [place] [address] [place] ARTERIAL BLOOD GASES WITH IO NIZED MAGNESIUMon 11-26-2024 Base excess Calc (Bld) [Moles/Vol] 6 mmol/L High 0-2 [facility] Comment on above: Order Comment: Speci men Type: ARTERIAL BLOOD SPECIMENOrdering Facility: [facility] Address: [address] [place] [address] Performed By: #### A LLMG ####[facility] LABIA [id number] [place] [address] [place] Calcium.ionized (Bld) [Mass/Vol] 1.09 mmol/L Normal 1.08-1.30 [facility] Comment on above: Order Comment: Speci men Type: ARTERIAL BLOOD SPECIMENOrdering Facility: [facility] Address: [address] [place] [address] Performed By: #### A LLMG ####[facility] LABCLIA [id number] [place] [address] [place] Calcium.ionized adjusted to pH 7.4 (BldA) [Moles/Vol] 1.12 mmol/L Normal 1.08-1.30 [facility] Comment on above: Order Comment: Speci men Type: ARTERIAL BLOOD SPECIMENOrdering Facility: [facility] Address: [address] [place] [address] Performed By: #### A LLMG ####[facility] LABIA [id number] [place] [address] [place] Carboxyhemoglobin (BldA) [Mass fraction] 0.0 % Normal 0.0-2.0 [facility] Comment on above: Order Comment: Speci men Type: ARTERIAL BLOOD SPECIMENOrdering Facility: [facility] Address: [address] [place] [address] Result Comment: Carb oxyhemoglobin Reference Range for Smokers: 2.0-8.0% Performed By: #### A LLMG ####[facility] LABIA [id number] [place] [address] [place] CO2 (Bld) [Partial pressure] 43 mm Hg Normal 36-46 [facility] Comment on above: Order Comment: Speci men Type: ARTERIAL BLOOD SPECIMENOrdering Facility: [facility] Address: [address] [place] [address] Performed By: #### A LLMG ####[facility] LABCLIA [id number] [place] [address] [place] CO2 adjusted to patient's actual temperature (Bld) [Partial pressure] 43 mmHg Normal 36-46 [facility] Comment on above: Order Comment: Speci men Type: ARTERIAL BLOOD SPECIMENOrdering Facility: [facility] Address: [address] [place] [address] Performed By: #### A LLMG ####[facility] LABCLIA [id number] [address] [place] [address] [place] Glucose [Mass/Vol] 83 mg/dL Normal 60-105 [facility] Comment on above: Order Comment: Speci men Type: ARTERIAL BLOOD SPECIMENOrdering Facility: [facility] Address: [address] [place] [address] Performed By: #### A LLMG ####[facility] LABCLIA [id number] [address], [place] [address] [place] HCO3 (Bld) [Moles/Vol] 30 mmol/L High 22-26 [facility] Comment on above: Order Comment: Speci men Type: ARTERIAL BLOOD SPECIMENOrdering Facility: [facility] Address: [address] [place] [address] Performed By: #### A LLMG ####[facility] LABCLIA [id number] [place] [address] [place] Hematocrit (Bld) [Volume fraction] 32.9 % Low 39.0-51.0 [facility] Comment on above: Order Comment: Speci men Type: ARTERIAL BLOOD SPECIMENOrdering Facility: [facility] Address: [address] [place] [address] Performed By: #### A LLMG ####[facility] LABCLIA [id number] [place] [address] [place] Hemoglobin (Bld) [Mass/Vol] 10.7 g/dL Low 13.0-17.0 [facility] Comment on above: Order Comment: Speci men Type: ARTERIAL BLOOD SPECIMENOrdering Facility: [facility] Address: [address] [place] [address] Performed By: #### A LLMG ####[facility] LABCLIA [id number] [address], [facility] [place] Lactate [Moles/Vol] 0.6 mmol/L Normal 0.5-2.2 [facility] Comment on above: Order Comment: Speci men Type: ARTERIAL BLOOD SPECIMENOrdering Facility: [facility] Address: [address] [place] [address] Performed By: #### A LLMG ####[facility] LABCLIA [id number] [address] [address] [place] Magnesium [Moles/Vol] 0.59 mmol/L Normal 0.45-0.60 [facility] Comment on above: Order Comment: Speci men Type: ARTERIAL BLOOD SPECIMENOrdering Facility: [facility] Address: [address] [place], [place] [address] Performed By: #### A LLMG ####[facility] LABCLIA [id number] [place] [id number] [place] Methemoglobin (Bld) [Mass fraction] 0.5 % Normal 0.0-1.5 [facility] Comment on above: Order Comment: Speci men Type: ARTERIAL BLOOD SPECIMENOrdering Facility: [facility] Address: [address] [place], [place] [address] Performed By: #### A LLMG ####[facility] LABCLIA [id number] [address] [address] [place] Oxygen (Bld) [Partial pressure] 132 mm Hg High 85-95 [facility] Comment on above: Order Comment: Speci men Type: ARTERIAL BLOOD SPECIMENOrdering Facility: [facility] Address: [address] [place], [place] [address] Performed By: #### A LLMG ####[facility] LABCLIA [id number] [address] [place] [address] [place] Oxygen adjusted to patient's actual temperature (Bld) [Partial pressure] 132 mmHg High 85-95 [facility] Comment on above: Order Comment: Speci men Type: ARTERIAL BLOOD SPECIMENOrdering Facility: [facility] Address: [address] [place] [address] Performed By: #### A LLMG ####[facility] LABCLIA [id number] [place] [id number] [place] Oxyhemoglobin (BldA) [Mass fraction] 97 % Normal 95-98 [facility] Comment on above: Order Comment: Speci men Type: ARTERIAL BLOOD SPECIMENOrdering Facility: [facility] Address: [address] [place] [address] Performed By: #### A LLMG ####[facility] LABCLIA [id number] [place] [address] [place] pH (Bld) 7.46 [pH] High 7.35-7.45 [facility] Comment on above: Order Comment: Speci men Type: ARTERIAL BLOOD SPECIMENOrdering Facility: [facility] Address: [address] [place] [address] Performed By: #### A LLMG ####[facility] LABCLIA [id number] [place] [address] [place] pH adjusted to patient's actual temperature (Bld) 7.46 High 7.35-7.45 [facility] Comment on above: Order Comment: Speci men Type: ARTERIAL BLOOD SPECIMENOrdering Facility: [facility] Address: [address] [place] [address] Performed By: #### A LLMG ####[facility] LABCLIA [id number] [place] [address] [place] Potassium [Moles/Vol] 3.7 mmol/L Normal 3.5-5.0 [facility] Comment on above: Order Comment: Speci men Type: ARTERIAL BLOOD SPECIMENOrdering Facility: [facility] Address: [address] [place] [address] Performed By: #### A LLMG ####[facility] LABCLIA [id number] [place] [id number] [place] Sodium [Moles/Vol] 133 mmol/L Low 136-144 [facility] Comment on above: Order Comment: Speci men Type: ARTERIAL BLOOD SPECIMENOrdering Facility: [facility] Address: [address] [place] [address] Performed By: #### A LLMG ####[facility] LABCLIA [id number] [place] [id number] [place] BRIEF OP NOTon 11-26-2024 BRIEF OP NOT Normal [facility] BUN p dialysis SerPl-mCncon 11-26-2024 Urea nitrogen post dialysis [Mass/Vol] 30 mg/dL High 02-13 [facility] Comment on above: Order Comment: Speci men Type: BLOOD SPECIMENOrdering Facility: [facility] [facility] Address: [address] [place] [address] Performed By: #### 1 1064-3 ####[facility] LABCLIA [id number] [address] [place] BUN pre dial SerPl-mCncon Urea nitrogen pre dialysis [Mass/Vol] 96 mg/dL High 02-13 [facility] Comment on above: Order Comment: Speci men Type: BLOOD SPECIMENOrdering Facility: [facility] Address: [address] [place] [address] Performed By: #### 1 1065-0 ####[facility] LABCLIA [id number] [address] OF [place] Basic Metabolic Profile (BMP )on 11-26-2024 BUN Normal 4-19 [facility] Comment on above: Result Comment: Canc elled via OM: MD Ordered Performed By: #### L 500.2500, L100.0100 ####[facility] [address] [facility] [address] BUN/CRE Normal 10-20 [facility] Comment on above: Result Comment: Canc elled via OM: MD Ordered Performed By: #### L 500.2500, L100.0100 ####[facility] [address] [place], [address] Calcium Normal 7.6-11.0 [facility] Comment on above: Result Comment: Canc elled via OM: MD Ordered Performed By: #### L 500.2500, L100.0100 ####[facility] [address] [place], [address] CL Normal 98-108 [facility] Comment on above: Result Comment: Canc elled via OM: MD Ordered Performed By: #### L 500.2500, L100.0100 ####[facility] [address] [place], [address] CO2 Normal 21.0-32.0 [facility] Comment on above: Result Comment: Canc elled via OM: MD Ordered Performed By: #### L 500.2500, L100.0100 ####[facility] [address] [place], [address] CREAT,SERUM Normal 0.70-1.20 [facility] Comment on above: Result Comment: Canc elled via OM: MD Ordered Performed By: #### L 500.2500, L100.0100 ####[facility] [address] [place], [address] eGFR Normal >60 [facility] Comment on above: Result Comment: Canc elled via OM: MD Ordered Performed By: #### L 500.2500, L100.0100 ####[facility] [address] [place], [address] GAP Normal 5-15 [facility] Comment on above: Result Comment: Canc elled via OM: MD Ordered Performed By: #### L 500.2500, L100.0100 ####[facility] [address] [place], [address] GLU Normal 70-99 [facility] Comment on above: Result Comment: Canc elled via OM: MD Ordered Performed By: #### L 500.2500, L100.0100 ####[facility] [address] [place], [address] Potassium Normal 3.3-5.1 [facility] Comment on above: Result Comment: Canc elled via OM: MD Ordered Performed By: #### L 500.2500, L100.0100 ####[facility] [address] [place], [address] Basic Metabolic Profile (BMP) Normal 133-145 [facility] Comment on above: Result Comment: Canc elled via OM: MD Ordered Performed By: #### L 500.2500, L100.0100 ####[facility] [address] [place], [address] CASE MGT INIT ASSESon -- 2024 CASE MGT INIT ASSES Normal [facility] CBC W/Diff, Automatedon 07-0 Absolute Neut Normal 2.0-7.7 [facility] Comment on above: Result Comment: Canc elled via OM: MD Ordered Performed By: #### L 500.2500, L100.0100 ####[facility] [address] [place], [address] HCT Normal 40-54 [facility] Comment on above: Result Comment: Canc elled via OM: MD Ordered Performed By: #### L 500.2500, L100.0100 ####[facility] [address] [place], [address] HGB Normal 13.0-16.5 [facility] Comment on above: Result Comment: Canc elled via OM: MD Ordered Performed By: #### L 500.2500, L100.0100 ####[facility] [address] [place], [address] MCH Normal 27.0-32.0 [facility] Comment on above: Result Comment: Canc elled via OM: MD Ordered Performed By: #### L 500.2500, L100.0100 ####[facility] [address] [place], [address] MCHC Normal 32-36 [facility] Comment on above: Result Comment: Canc elled via OM: MD Ordered Performed By: #### L 500.2500, L100.0100 ####[facility] [address] [place], [address] MCV Normal 80-94 [facility] Comment on above: Result Comment: Canc elled via OM: MD Ordered Performed By: #### L 500.2500, L100.0100 ####[facility] [address] [place], [address] NEUT% Normal 47-70 [facility] Comment on above: Result Comment: Canc elled via OM: MD Ordered Performed By: #### L 500.2500, L100.0100 ####[facility] [address] [place], [address] PLT Normal 150-450 [facility] Comment on above: Result Comment: Canc elled via OM: MD Ordered Performed By: #### L 500.2500, L100.0100 ####[facility] [address] [place], [address] RBC Normal 4.6-6.2 [facility] Comment on above: Result Comment: Canc elled via OM: MD Ordered Performed By: #### L 500.2500, L100.0100 ####[facility] [address] [place], [address] RDW CV Normal 11.6-14.6 [facility] Comment on above: Result Comment: Canc elled via OM: MD Ordered Performed By: #### L 500.2500, L100.0100 ####[facility] [address] [place], [address] RDW SD Normal 35.1-43.9 [facility] Comment on above: Result Comment: Canc elled via OM: MD Ordered Performed By: #### L 500.2500, L100.0100 ####[facility] [address] [place], [address] WBC Normal 4.4-11.0 [facility] Comment on above: Result Comment: Canc elled via OM: MD Ordered Performed By: #### L 500.2500, L100.0100 ####[facility] [address] [place], [address] CBC panel Auto (Bld)on 11-26 Erythrocyte distribution width (RBC) [Ratio] 15.9 % High 11.5-15.0 [facility] Comment on above: Order Comment: Speci men Type: BLOOD SPECIMENOrdering Facility: [facility] Address: [address] [place] [address] Performed By: #### 5 8410-2 ####[facility] LABCLIA [id number] [place] [address] [place] Hematocrit (Bld) [Volume fraction] 33.8 % Low 39.0-51.0 [facility] Comment on above: Order Comment: Speci men Type: BLOOD SPECIMENOrdering Facility: [facility] Address: [address] [place] [address] Performed By: #### 5 8410-2 ####[facility] LABCLIA [id number] [place] [address] [place] Hemoglobin (Bld) [Mass/Vol] 10.7 g/dL Low 13.0-17.0 [facility] Comment on above: Order Comment: Speci men Type: BLOOD SPECIMENOrdering Facility: [facility] Address: [address] [place] [address] Performed By: #### 5 8410-2 ####[facility] LABCLIA [id number] [place] [address] [place] MCH (RBC) [Entitic mass] 28.2 pg Normal 26.0-34.0 [facility] Comment on above: Order Comment: Speci men Type: BLOOD SPECIMENOrdering Facility: [facility] Address: [address] [place] [address] Performed By: #### 5 8410-2 ####[facility] LABCLIA [id number] [place] [address] [place] MCHC (RBC) [Mass/Vol] 31.7 g/dL Normal 30.5-36.0 [facility] Comment on above: Order Comment: Speci men Type: BLOOD SPECIMENOrdering Facility: [facility] Address: [address] [place] [address] Performed By: #### 5 8410-2 ####[facility] LABCLIA [id number] [place] [address] [place] MCV (RBC) [Entitic vol] 88.9 fL Normal 80.0-100.0 [facility] Comment on above: Order Comment: Speci men Type: BLOOD SPECIMENOrdering Facility: [facility] Address: [address] [place] [address] Performed By: #### 5 8410-2 ####[facility] LABIA [id number] [place] [address] [place] Nucleated RBC (Bld) [#/Vol] 10*3/uL Normal <0.01 [facility] Comment on above: Order Comment: Speci men Type: BLOOD SPECIMENOrdering Facility: [facility] Address: [address] [place] [address] Performed By: #### 5 8410-2 ####[facility] LABCLIA [id number] [place] [address] [place] Platelet mean volume (Bld) [Entitic vol] 12.2 fL Normal 9.0-12.7 [facility] Comment on above: Order Comment: Speci men Type: BLOOD SPECIMENOrdering Facility: [facility] Address: [address] [place] [address] Performed By: #### 5 8410-2 ####[facility] LABIA [id number] [place] [address] [place] Platelets (Bld) [#/Vol] 133 10*3/uL Low 150-400 [facility] Comment on above: Order Comment: Speci men Type: BLOOD SPECIMENOrdering Facility: [facility] Address: [address] [place] [address] Performed By: #### 5 8410-2 ####[facility] LABIA [id number] [place] [address] [place] RBC (Bld) [#/Vol] 3.80 10*6/uL Low 4.20-6.00 [facility] Comment on above: Order Comment: Speci men Type: BLOOD SPECIMENOrdering Facility: [facility] Address: [address] [place] [address] Performed By: #### 5 8410-2 ####[facility] [id number] [place] [address] [place] WBC (Bld) [#/Vol] 8.99 10*3/uL Normal 3.70-11.00 [facility] Comment on above: Order Comment: Speci men Type: BLOOD SPECIMENOrdering Facility: [facility] Address: [address] [place] [address] Performed By: #### 5 8410-2 ####[facility] [id number] [place] [id number] [place] CONSULT PROGon 11-26-2024 CONSULT PROG Normal [facility] Comp Metab 2000 Pnl SerPlon 11-26-2024 Sodium [Moles/Vol] 129 mmol/L Low 136-144 [facility] Comment on above: Order Comment: Speci men Type: BLOOD SPECIMENOrdering Facility: [facility] Address: [address] [place] [address] Performed By: #### 2 4323-8, 37670-8 ####[facility] LABCLIA [id number] [address], [place] [address] [place] Order Comment: Speci men Type: ARTERIAL BLOOD SPECIMENOrdering Facility: [facility] Address: [address] [place] [address] Performed By: #### A LLBG ####[facility] LABCLIA [id number] [address], [address] OF [facility] Comprehensive metabolic 2000 panelon 11-26-2024 Albumin [Mass/Vol] 3.4 g/dL Low 3.9-4.9 [facility] Comment on above: Order Comment: Speci men Type: BLOOD SPECIMENOrdering Facility: [facility] Address: [address] [place] [address] Performed By: #### 2 4323-8 ####[facility] LABCLIA [id number] [place] [address] [place] ALP [Catalytic activity/Vol] 64 U/L Normal 38-113 [facility] Comment on above: Order Comment: Speci men Type: BLOOD SPECIMENOrdering Facility: [facility] Address: [address] [place] [address] Performed By: #### 2 4323-8 ####[facility] LABCLIA [id number] [address] [place] ALT [Catalytic activity/Vol] 34 U/L Normal 10-54 [facility] Comment on above: Order Comment: Speci men Type: BLOOD SPECIMENOrdering Facility: [facility] Address: [address] [place] [address] Performed By: #### 2 4323-8 ####[facility] LABCLIA [id number] [place] [id number] [place] Anion gap [Moles/Vol] 19 mmol/L High 8-15 [facility] Comment on above: Order Comment: Speci men Type: BLOOD SPECIMENOrdering Facility: [facility] Address: [address] [place] [address] Performed By: #### 2 4323-8 ####[facility] LABCLIA [id number] [address] [address] [place] AST [Catalytic activity/Vol] 21 U/L Normal 14-40 [facility] Comment on above: Order Comment: Speci men Type: BLOOD SPECIMENOrdering Facility: [facility] Address: [address] [place] [address] Performed By: #### 2 4323-8 ####[facility] LABCLIA [id number] [place] [address] [place] Bilirubin [Mass/Vol] 0.3 mg/dL Normal 0.2-1.3 [facility] Comment on above: Order Comment: Speci men Type: BLOOD SPECIMENOrdering Facility: [facility] Address: [address] [place] [address] Performed By: #### 2 4323-8 ####[facility] LABIA [id number] [place] [address] [place] Calcium [Mass/Vol] 8.7 mg/dL Normal 8.5-10.2 [facility] Comment on above: Order Comment: Speci men Type: BLOOD SPECIMENOrdering Facility: [facility] Address: [address] [place] [address] Performed By: #### 2 4323-8 ####[facility] LABCLIA [id number] [place] [id number] [place] Chloride [Moles/Vol] 89 mmol/L Low 98-107 [facility] Comment on above: Order Comment: Speci men Type: BLOOD SPECIMENOrdering Facility: [facility] Address: [address] [place] [address] Performed By: #### 2 4323-8 ####[facility] LABCLIA [id number] [address] [address] [place] CO2 [Moles/Vol] 22 mmol/L Normal 22-30 [facility] Comment on above: Order Comment: Speci men Type: BLOOD SPECIMENOrdering Facility: [facility] Address: [address] [place] [address] Performed By: #### 2 4323-8 ####[facility] LABCLIA [id number] [facility] [place] [id number] [place] Creatinine [Mass/Vol] 7.11 mg/dL High 0.73-1.22 [facility] Comment on above: Order Comment: Speci men Type: BLOOD SPECIMENOrdering Facility: [facility] Address: [address] [place] [address] Performed By: #### 2 4323-8 ####[facility] LABIA [id number] [place] [address] [place] Creatinine and Glomerular filtration rate.predicted panel (S/P/Bld) 7 mL/min/1.73m??? Low >=60 [facility] Comment on above: Order Comment: Speci men Type: BLOOD SPECIMENOrdering Facility: [facility] Address: [address] [place] [address] Result Comment: Tessa mated Glomerular Filtration Rate [...] GFR. Performed By: #### 2 4323-8 ####[facility] LABCLIA [id number] [facility] [address] [address] [place] Glucose [Mass/Vol] 55 mg/dL Low 74-99 [facility] Comment on above: Order Comment: Speci men Type: BLOOD SPECIMENOrdering Facility: [facility] Address: [address] [place] [address] Result Comment: The [place] [employer] (ADA) provides guidance for cutoff values for fasting glucose and random glucose. The ADA defines fasting as no caloric intake for at least 8 hours. Fasting plasma glucose results between 100 to 125 mg/dL indicate increased risk for diabetes (prediabetes).Fasting plasma glucose results greater than or equal to 126 mg/dL meet the criteria for diagnosis of diabetes. In the absence of unequivocal hyperglycemia, results should be confirmed by repeat testing. In a patient with classic symptoms of hyperglycemia or hyperglycemic crisis, random plasma glucose results greater than or equal to 200 mg/dL meet the criteria for diagnosis of diabetes.Reference: Standards of Medical Care in Diabetes 2016, [place] [employer]. Diabetes Care. 2016.39(Suppl 1). Performed By: #### 2 4323-8 ####[facility] LABCLIA [id number] [place] [address] [place] Potassium [Moles/Vol] 5.3 mmol/L High 3.7-5.1 [facility] Comment on above: Order Comment: Speci men Type: BLOOD SPECIMENOrdering Facility: [facility] Address: [address] [place], [place] [address] Performed By: #### 2 4323-8 ####[facility] LABCLIA [id number] [address] [address] [place] Protein [Mass/Vol] 6.3 g/dL Normal 6.3-8.0 [facility] Comment on above: Order Comment: Speci men Type: BLOOD SPECIMENOrdering Facility: [facility] Address: [address] [place] [address] Performed By: #### 2 4323-8 ####[facility] LABCLIA [id number] [place] [id number] [place] Sodium [Moles/Vol] 130 mmol/L Low 136-144 [facility] Comment on above: Order Comment: Speci men Type: BLOOD SPECIMENOrdering Facility: [facility] Address: [address] [place] [id number] Performed By: #### 2 4323-8 ####[facility] LABCLIA [id number] [address] [address] [place] Urea nitrogen [Mass/Vol] 95 mg/dL High 9-24 [facility] Comment on above: Order Comment: Speci men Type: BLOOD SPECIMENOrdering Facility: [facility] Address: [address] [place], [place] [address] Performed By: #### 2 4323-8 ####[facility] LABCLIA [id number] [place] [id number] [place] Albumin [Mass/Vol] 3.4 g/dL Low 3.9-4.9 [facility] Comment on above: Order Comment: Speci men Type: BLOOD SPECIMENOrdering Facility: [facility] Address: [address] [place] [address] Performed By: #### 2 4323-8, ####[facility] LABCLIA [id number] [place] [id number] [place] ALP [Catalytic activity/Vol] 63 U/L Normal 38-113 [facility] Comment on above: Order Comment: Speci men Type: BLOOD SPECIMENOrdering Facility: [facility] Address: [address] [place], [place] [address] Performed By: #### 2 4323-8, ####[facility] LABCLIA [id number] [facility] [address] [place] [address] [place] ALT [Catalytic activity/Vol] 36 U/L Normal 10-54 [facility] Comment on above: Order Comment: Speci men Type: BLOOD SPECIMENOrdering Facility: [facility] Address: [address] [place], [place] [address] Performed By: #### 2 4323-8, ####[facility] LABCLIA [id number] [place] [id number] [place] Anion gap [Moles/Vol] 19 mmol/L High 8-15 [facility] Comment on above: Order Comment: Speci men Type: BLOOD SPECIMENOrdering Facility: [facility] Address: [address] [place] [address] Performed By: #### 2 4323-8, ####[facility] LABCLIA [id number] [place] [id number] [place] AST [Catalytic activity/Vol] 20 U/L Normal 14-40 [facility] Comment on above: Order Comment: Speci men Type: BLOOD SPECIMENOrdering Facility: [facility] Address: [address] [place] [address] Performed By: #### 2 4323-8, ####[facility] LABCLIA [id number] [place] [address] [place] Bilirubin [Mass/Vol] 0.2 mg/dL Normal 0.2-1.3 [facility] Comment on above: Order Comment: Speci men Type: BLOOD SPECIMENOrdering Facility: [facility] Address: [address] [place] [address] Performed By: #### 2 4323-8, ####[facility] LABCLIA [id number] [place] [id number] [place] Calcium [Mass/Vol] 8.9 mg/dL Normal 8.5-10.2 [facility] Comment on above: Order Comment: Speci men Type: BLOOD SPECIMENOrdering Facility: [facility] Address: [address] [place], [place] [address] Performed By: #### 2 4323-8, ####[facility] LABCLIA [id number] [place] [id number] [place] Chloride [Moles/Vol] 88 mmol/L Low 98-107 [facility] Comment on above: Order Comment: Speci men Type: BLOOD SPECIMENOrdering Facility: [facility] Address: [address] [place] [address] Performed By: #### 2 4323-8, ####[facility] LABIA [id number] [address] [address] [place] CO2 [Moles/Vol] 22 mmol/L Normal 22-30 [facility] Comment on above: Order Comment: Speci men Type: BLOOD SPECIMENOrdering Facility: [facility] Address: [address] [place] [address] Performed By: #### 2 4323-8, ####[facility] LABIA [id number] [place] [address] [place] Creatinine [Mass/Vol] 7.11 mg/dL High 0.73-1.22 [facility] Comment on above: Order Comment: Speci men Type: BLOOD SPECIMENOrdering Facility: [facility] Address: [address] [place] [address] Performed By: #### 2 4323-8, ####[facility] LABIA [id number] [address] [place] Creatinine and Glomerular filtration rate.predicted panel (S/P/Bld) 7 mL/min/1.73m??? Low >=60 [facility] Comment on above: Order Comment: Speci men Type: BLOOD SPECIMENOrdering Facility: [facility] Address: [address] [place] [address] Result Comment: Tessa mated Glomerular Filtration Rate [...] reflect actual GFR. Performed By: #### 2 4323-8, ####[facility] LABCLIA [id number] [address] [address] [place] Glucose [Mass/Vol] 133 mg/dL High 74-99 [facility] Comment on above: Order Comment: Speci men Type: BLOOD SPECIMENOrdering Facility: [facility] Address: [address] [place] [address] Result Comment: The [place] [employer] (ADA) provides guidance for cutoff values for fasting glucose and random glucose. The ADA defines fasting as no caloric intake for at least 8 hours. Fasting plasma glucose results between 100 to 125 mg/dL indicate increased risk for diabetes (prediabetes).Fasting plasma glucose results greater than or equal to 126 mg/dL meet the criteria for diagnosis of diabetes. In the absence of unequivocal hyperglycemia, results should be confirmed by repeat testing. In a patient with classic symptoms of hyperglycemia or hyperglycemic crisis, random plasma glucose results greater than or equal to 200 mg/dL meet the criteria for diagnosis of diabetes.Reference: Standards of Medical Care in Diabetes 2016, [place] [employer]. Diabetes Care. 2016.39(Suppl 1). Performed By: #### 2 4323-8, ####[facility] LABIA [id number] [place] [id number] [place] Potassium [Moles/Vol] 5.6 mmol/L High 3.7-5.1 [facility] Comment on above: Order Comment: Speci men Type: BLOOD SPECIMENOrdering Facility: [facility] Address: [address] [place] [address] Performed By: #### 2 4323-8, ####[facility] LABIA [id number] [address] [address] [place] Protein [Mass/Vol] 6.3 g/dL Normal 6.3-8.0 [facility] Comment on above: Order Comment: Speci men Type: BLOOD SPECIMENOrdering Facility: [facility] Address: [address] [place] [address] Performed By: #### 2 4328, ####[facility] LABCLIA [id number] [address] [address] [place] Urea nitrogen [Mass/Vol] 94 mg/dL High 9-24 [facility] Comment on above: Order Comment: Speci men Type: BLOOD SPECIMENOrdering Facility: [facility] Address: [address] [place], [place] [address] Performed By: #### 2 4323-8, ####[facility]IA [id number] [address] [address] [place] Magnesium SerPl-mCncon 11-26 Magnesium [Mass/Vol] 2.6 mg/dL High 1.7-2.3 [facility] Comment on above: Order Comment: Speci men Type: BLOOD SPECIMENOrdering Facility: [facility] Address: [address] [place] [address] Performed By: #### 2 4323-8, ####[facility]IA [id number] [place] [id number] [place] THERAPY NTon 11-26-2024 THERAPY NT Normal [facility] Urea nitrogen post dialysis [Mass/Vol]on 11-26-2024 UREA REDUCTION RATIO WITH BUNPR 69 % Normal [facility] Comment on above: Order Comment: Speci men Type: BLOOD SPECIMENOrdering Facility: [facility] Address: [address] [place], [place] [id number] Performed By: #### 1 1064-3 ####[facility]IA [id number] [place] [id number] [place] XR CHEST 1V FRONTAL PORTon 0 11-26-2024 XR CHEST 1V FRONTAL PORT Normal [facility] ALLIED HEALTHon 11-25-2024 ALLIED HEALTH HNO ID: [id number] Author: ISRAEL MOODY Chaplain Service: Process Group Author Type: Type: Allied Health Filed: 11/25/2024 16:42 Note Text: The patient was anointed. Normal [facility] ARTERIAL BLOOD GASESon 11-25 Base excess Calc (Bld) [Moles/Vol] 1 mmol/L Normal 0-2 [facility] Comment on above: Order Comment: Speci men Type: ARTERIAL BLOOD SPECIMENOrdering Facility: [facility] Address: [address] [place] [address] Performed By: #### A LLBG ####[facility]IA [id number] [place] [address] [place] Body temperature 97.7 [degF] Normal [facility] Comment on above: Order Comment: Speci men Type: ARTERIAL BLOOD SPECIMENOrdering Facility: [facility] Address: [address] [place] [address] Performed By: #### A LLBG ####[facility]IA [id number] [place] [address] [place] Calcium.ionized (Bld) [Mass/Vol] 1.09 mmol/L Normal 1.08-1.30 [facility] Comment on above: Order Comment: Speci men Type: ARTERIAL BLOOD SPECIMENOrdering Facility: [facility] Address: [address] [place] [address] Performed By: #### A LLBG ####[facility]IA [id number] [place] [address] [place] Calcium.ionized adjusted to pH 7.4 (BldA) [Moles/Vol] 1.08 mmol/L Normal 1.08-1.30 [facility] Comment on above: Order Comment: Speci men Type: ARTERIAL BLOOD SPECIMENOrdering Facility: [facility] Address: [address] [place] [address] Performed By: #### A LLBG ####[facility]IA [id number] [place] [address] [place] Carboxyhemoglobin (BldA) [Mass fraction] 0.3 % Normal 0.0-2.0 [facility] Comment on above: Order Comment: Speci men Type: ARTERIAL BLOOD SPECIMENOrdering Facility: [facility] Address: [address] [place] [address] Result Comment: Carb oxyhemoglobin Reference Range for Smokers: 2.0-8.0% Performed By: #### A LLBG ####[facility] LABCLIA [id number] [place] [address] [place] CO2 (Bld) [Partial pressure] 43 mm Hg Normal 36-46 [facility] Comment on above: Order Comment: Speci men Type: ARTERIAL BLOOD SPECIMENOrdering Facility: [facility] Address: [address] [place] [address] Performed By: #### A LLBG ####[facility] LABCLIA [id number] [place] [address] [place] CO2 adjusted to patient's actual temperature (Bld) [Partial pressure] 42 mmHg Normal 36-46 [facility] Comment on above: Order Comment: Speci men Type: ARTERIAL BLOOD SPECIMENOrdering Facility: [facility] Address: [address] [place] [address] Performed By: #### A LLBG ####[facility] LABCLIA [id number] [place] [id number] [place] Glucose [Mass/Vol] 92 mg/dL Normal 60-105 [facility] Comment on above: Order Comment: Speci men Type: ARTERIAL BLOOD SPECIMENOrdering Facility: [facility] Address: [address] [place] [address] Performed By: #### A LLBG ####[facility]IA [id number] [place] [id number] [place] HCO3 (Bld) [Moles/Vol] 25 mmol/L Normal 22-26 [facility] Comment on above: Order Comment: Speci men Type: ARTERIAL BLOOD SPECIMENOrdering Facility: [facility] Address: [address] [place], [place] [phone] Performed By: #### A LLBG ####[facility] LABCLIA [id number] [place] [address] [place] Hematocrit (Bld) [Volume fraction] 32.9 % Low 39.0-51.0 [facility] Comment on above: Order Comment: Speci men Type: ARTERIAL BLOOD SPECIMENOrdering Facility: [facility] Address: [address] [place] [address] Performed By: #### A LLBG ####[facility] LABCLIA [id number] [place] [address] [place] Hemoglobin (Bld) [Mass/Vol] 10.6 g/dL Low 13.0-17.0 [facility] Comment on above: Order Comment: Speci men Type: ARTERIAL BLOOD SPECIMENOrdering Facility: [facility] Address: [address] [place] [address] Performed By: #### A LLBG ####[facility] LABCLIA [id number] [place] [address] [place] Lactate [Moles/Vol] 1.0 mmol/L Normal 0.5-2.2 [facility] Comment on above: Order Comment: Speci men Type: ARTERIAL BLOOD SPECIMENOrdering Facility: [facility] Address: [address] [place] [address] Performed By: #### A LLBG ####[facility] LABCLIA [id number] [place] [address] [place] LITERS 1 Liters/min Normal [facility] Comment on above: Order Comment: Speci men Type: ARTERIAL BLOOD SPECIMENOrdering Facility: [facility] Address: [address] [place] [address] Performed By: #### A LLBG ####[facility] LABCLIA [id number] [place] [address] [place] Methemoglobin (Bld) [Mass fraction] 0.3 % Normal 0.0-1.5 [facility] Comment on above: Order Comment: Speci men Type: ARTERIAL BLOOD SPECIMENOrdering Facility: [facility] Address: [address] [place] [address] Performed By: #### A LLBG ####[facility] LABCLIA [id number] [place] [id number] [place] O2 THERAPY NC = Nasal Cannula Normal [facility] Comment on above: Order Comment: Speci men Type: ARTERIAL BLOOD SPECIMENOrdering Facility: [facility] Address: [address] [place] [address] Performed By: #### A LLBG ####[facility] LABCLIA [id number] [place] [id number] [place] Oxygen (Bld) [Partial pressure] 147 mm Hg High 85-95 [facility] Comment on above: Order Comment: Speci men Type: ARTERIAL BLOOD SPECIMENOrdering Facility: [facility] Address: [address] [place] [address] Performed By: #### A LLBG ####[facility] LABCLIA [id number] [place] [id number] [place] Oxygen adjusted to patient's actual temperature (Bld) [Partial pressure] 144 mmHg High 85-95 [facility] Comment on above: Order Comment: Speci men Type: ARTERIAL BLOOD SPECIMENOrdering Facility: [facility] Address: [address] [place] [address] Performed By: #### A LLBG ####[facility] LABCLIA [id number] [place] [id number] [place] Oxyhemoglobin (BldA) [Mass fraction] 97 % Normal 95-98 [facility] Comment on above: Order Comment: Speci men Type: ARTERIAL BLOOD SPECIMENOrdering Facility: [facility] Address: [address] [place], [place] [phone] Performed By: #### A LLBG ####[facility] LABCLIA [id number] [address] [address] [place] pH (Bld) 7.39 [pH] Normal 7.35-7.45 [facility] Comment on above: Order Comment: Speci men Type: ARTERIAL BLOOD SPECIMENOrdering Facility: [facility] Address: [address] [place] [address] Performed By: #### A LLBG ####[facility] LABCLIA [id number] [place] [address] [place] pH adjusted to patient's actual temperature (Bld) 7.39 Normal 7.35-7.45 [facility] Comment on above: Order Comment: Speci men Type: ARTERIAL BLOOD SPECIMENOrdering Facility: [facility] Address: [address] [place] [address] Performed By: #### A LLBG ####[facility] LABCLIA [id number] [place] [address] [place] Potassium [Moles/Vol] 5.3 mmol/L High 3.5-5.0 [facility] Comment on above: Order Comment: Speci men Type: ARTERIAL BLOOD SPECIMENOrdering Facility: [facility] Address: [address] [place] [address] Performed By: #### A LLBG ####[facility]IA [id number] [place] [address] [place] Sodium [Moles/Vol] 129 mmol/L Low 136-144 [facility] Comment on above: Order Comment: Speci men Type: ARTERIAL BLOOD SPECIMENOrdering Facility: [facility] Address: [address] [place] [address] Performed By: #### A LLBG ####[facility] LABCLIA [id number] [place] [id number] [place] Base excess Calc (Bld) [Moles/Vol] 1 mmol/L Normal 0-2 [facility] Comment on above: Order Comment: Speci men Type: ARTERIAL BLOOD SPECIMENOrdering Facility: [facility] Address: [address] [place] [address] Performed By: #### A LLBG ####[facility]IA [id number] [place] [address] [place] Body temperature 97.7 [degF] Normal [facility] Comment on above: Order Comment: Speci men Type: ARTERIAL BLOOD SPECIMENOrdering Facility: [facility] Address: [address] [place] [address] Performed By: #### A LLBG ####[facility]IA [id number] [place] [address] [place] Calcium.ionized (Bld) [Mass/Vol] 1.08 mmol/L Normal 1.08-1.30 [facility] Comment on above: Order Comment: Speci men Type: ARTERIAL BLOOD SPECIMENOrdering Facility: [facility] Address: [address] [place] [address] Performed By: #### A LLBG ####[facility] [id number] [place] [address] [place] Calcium.ionized adjusted to pH 7.4 (BldA) [Moles/Vol] 1.07 mmol/L Low 1.08-1.30 [facility] Comment on above: Order Comment: Speci men Type: ARTERIAL BLOOD SPECIMENOrdering Facility: [facility] Address: [address] [place] [address] Performed By: #### A LLBG ####[facility]IA [id number] [place] [address] [place] Carboxyhemoglobin (BldA) [Mass fraction] 0.3 % Normal 0.0-2.0 [facility] Comment on above: Order Comment: Speci men Type: ARTERIAL BLOOD SPECIMENOrdering Facility: [facility] Address: [address] [place] [address] Result Comment: Carb oxyhemoglobin Reference Range for Smokers: 2.0-8.0% Performed By: #### A LLBG ####[facility] LABCLIA [id number] [address] [place] [facility] CO2 (Bld) [Partial pressure] 44 mm Hg Normal 36-46 [facility] Comment on above: Order Comment: Speci men Type: ARTERIAL BLOOD SPECIMENOrdering Facility: [facility] Address: [address] [place] [address] Performed By: #### A LLBG ####[facility] LABCLIA [id number] [address] CO2 adjusted to patient's actual temperature (Bld) [Partial pressure] 43 mmHg Normal 36-46 [facility] Comment on above: Order Comment: Speci men Type: ARTERIAL BLOOD SPECIMENOrdering Facility: [facility] Address: [address] [place] [address] Performed By: #### A LLBG ####[facility] LABCLIA [id number] [place] [address] [place] [facility] Glucose [Mass/Vol] 157 mg/dL High 60-105 [facility] Comment on above: Order Comment: Speci men Type: ARTERIAL BLOOD SPECIMENOrdering Facility: [facility] Address: [address] [place] [address] Performed By: #### A LLBG ####[facility] LABCLIA [id number] [place] [id number] [place] HCO3 (Bld) [Moles/Vol] 26 mmol/L Normal 22-26 [facility] Comment on above: Order Comment: Speci men Type: ARTERIAL BLOOD SPECIMENOrdering Facility: [facility] Address: [address] [place] [address] Performed By: #### A LLBG ####[facility] LABCLIA [id number] [address] [id number] [address] [place] Hematocrit (Bld) [Volume fraction] 32.7 % Low 39.0-51.0 [facility] Comment on above: Order Comment: Speci men Type: ARTERIAL BLOOD SPECIMENOrdering Facility: [facility] Address: [address] [place] [address] Performed By: #### A LLBG ####[facility] LABCLIA [id number] [place] [address] [place] Hemoglobin (Bld) [Mass/Vol] 10.6 g/dL Low 13.0-17.0 [facility] Comment on above: Order Comment: Speci men Type: ARTERIAL BLOOD SPECIMENOrdering Facility: [facility] Address: [address] [place] [address] Performed By: #### A LLBG ####[facility] LABCLIA [id number] [place] [address] [place] Lactate [Moles/Vol] 1.2 mmol/L Normal 0.5-2.2 [facility] Comment on above: Order Comment: Speci men Type: ARTERIAL BLOOD SPECIMENOrdering Facility: [facility] Address: [address] [place] [address] Performed By: #### A LLBG ####[facility] LABCLIA [id number] [place] [address] [place] Methemoglobin (Bld) [Mass fraction] 0.2 % Normal 0.0-1.5 [facility] Comment on above: Order Comment: Speci men Type: ARTERIAL BLOOD SPECIMENOrdering Facility: [facility] Address: [address] [place] [address] Performed By: #### A LLBG ####[facility]IA [id number] [place] [address] [place] O2 THERAPY RA=Room Air Normal [facility] Comment on above: Order Comment: Speci men Type: ARTERIAL BLOOD SPECIMENOrdering Facility: [facility] Address: [address] [place] [address] Performed By: #### A LLBG ####[facility] LABCLIA [id number] [address] [address] [place] Oxygen (Bld) [Partial pressure] 136 mm Hg High 85-95 [facility] Comment on above: Order Comment: Speci men Type: ARTERIAL BLOOD SPECIMENOrdering Facility: [facility] Address: [address] [place] [address] Performed By: #### A LLBG ####[facility] LABCLIA [id number] [place] [id number] [place] Oxygen adjusted to patient's actual temperature (Bld) [Partial pressure] 134 mmHg High 85-95 [facility] Comment on above: Order Comment: Speci men Type: ARTERIAL BLOOD SPECIMENOrdering Facility: [facility] Address: [address] [place] [address] Performed By: #### A LLBG ####[facility]IA [id number] [place] [id number] [place] Oxyhemoglobin (BldA) [Mass fraction] 97 % Normal 95-98 [facility] Comment on above: Order Comment: Speci men Type: ARTERIAL BLOOD SPECIMENOrdering Facility: [facility] Address: [address] [place] [address] Performed By: #### A LLBG ####[facility] LABCLIA [id number] [place] [id number] [place] pH (Bld) 7.39 [pH] Normal 7.35-7.45 [facility] Comment on above: Order Comment: Speci men Type: ARTERIAL BLOOD SPECIMENOrdering Facility: [facility] Address: [address] [place] [address] Performed By: #### A LLBG ####[facility] LABCLIA [id number] [place] [id number] [place] pH adjusted to patient's actual temperature (Bld) 7.39 Normal 7.35-7.45 [facility] Comment on above: Order Comment: Speci men Type: ARTERIAL BLOOD SPECIMENOrdering Facility: [facility] Address: [address] [place] [address] Performed By: #### A LLBG ####[facility] LABCLIA [id number] [place] [address] [place] PO2 / FIO2 RATIO 648 mmHg Normal >300 [facility] Comment on above: Order Comment: Speci men Type: ARTERIAL BLOOD SPECIMENOrdering Facility: [facility] Address: [address] [place] [address] Performed By: #### A LLBG ####[facility] LABCLIA [id number] [place] [address] [place] Potassium [Moles/Vol] 5.3 mmol/L High 3.5-5.0 [facility] Comment on above: Order Comment: Speci men Type: ARTERIAL BLOOD SPECIMENOrdering Facility: [facility] Address: [address] [place] [address] Performed By: #### A LLBG ####[facility]CLIA [id number] [place] [address] [place] Sodium [Moles/Vol] 129 mmol/L Low 136-144 [facility] Comment on above: Order Comment: Speci men Type: ARTERIAL BLOOD SPECIMENOrdering Facility: [facility] Address: [address] [place] [address] Performed By: #### A LLBG ####[facility]CLIA [id number] [place] [address] [place] Base excess Calc (Bld) [Moles/Vol] 1 mmol/L Normal 0-2 [facility] Comment on above: Order Comment: Speci men Type: ARTERIAL BLOOD SPECIMENOrdering Facility: [facility] Address: [address] [place] [address] Performed By: #### A LLBG ####[facility] LABCLIA [id number] [place] [address] [place] Body temperature 97.88 [degF] Normal [facility] Comment on above: Order Comment: Speci men Type: ARTERIAL BLOOD SPECIMENOrdering Facility: [facility] Address: [address] [place] [address] Performed By: #### A LLBG ####[facility] LABCLIA [id number] [place] [address] [place] Calcium.ionized (Bld) [Mass/Vol] 1.12 mmol/L Normal 1.08-1.30 [facility] Comment on above: Order Comment: Speci men Type: ARTERIAL BLOOD SPECIMENOrdering Facility: [facility] Address: [address] [place] [address] Performed By: #### A LLBG ####[facility] LABCLIA [id number] [place] [address] [place] Calcium.ionized adjusted to pH 7.4 (BldA) [Moles/Vol] 1.11 mmol/L Normal 1.08-1.30 [facility] Comment on above: Order Comment: Speci men Type: ARTERIAL BLOOD SPECIMENOrdering Facility: [facility] Address: [address] [place] [address] Performed By: #### A LLBG ####[facility]IA [id number] [place] [address] [place] Carboxyhemoglobin (BldA) [Mass fraction] 1.1 % Normal 0.0-2.0 [facility] Comment on above: Order Comment: Speci men Type: ARTERIAL BLOOD SPECIMENOrdering Facility: [facility] Address: [address] [place] [address] Result Comment: Carb oxyhemoglobin Reference Range for Smokers: 2.0-8.0% Performed By: #### A LLBG ####[facility] LABCLIA [id number] [place] [id number] [place] CO2 (Bld) [Partial pressure] 43 mm Hg Normal 36-46 [facility] Comment on above: Order Comment: Ruddyi men Type: ARTERIAL BLOOD SPECIMENOrdering Facility: [facility] Address: [address] [place] [address] Performed By: #### A LLBG ####[facility] LABCLIA [id number] [address] [place] CO2 adjusted to patient's actual temperature (Bld) [Partial pressure] 42 mmHg Normal 36-46 [facility] Comment on above: Order Comment: Lesvia men Type: ARTERIAL BLOOD SPECIMENOrdering Facility: [facility] Address: [address] [place] [address] Performed By: #### A LLBG ####[facility]IA [id number] [place] [address] [place] Glucose [Mass/Vol] 175 mg/dL High 74-99 [facility] Comment on above: Order Comment: Ruddyi men Type: ARTERIAL BLOOD SPECIMENOrdering Facility: [facility] Address: [address] [address] [place] [address] Performed By: #### A LLBG ####[facility] LABIA [id number] [address] [place] Order Comment: Speci men Type: BLOOD SPECIMENOrdering Facility: [facility] Address: [address] [place] [address] Result Comment: The [place] [employer] (ADA) provides guidance for cutoff values for fasting glucose and random glucose. The ADA defines fasting as no caloric intake for at least 8 hours. Fasting plasma glucose results between 100 to 125 mg/dL indicate increased risk for diabetes (prediabetes).Fasting plasma glucose results greater than or equal to 126 mg/dL meet the criteria for diagnosis of diabetes. In the absence of unequivocal hyperglycemia, results should be confirmed by repeat testing. In a patient with classic symptoms of hyperglycemia or hyperglycemic crisis, random plasma glucose results greater than or equal to 200 mg/dL meet the criteria for diagnosis of diabetes.Reference: Standards of Medical Care in Diabetes 2016, [place] [employer]. Diabetes Care. 2016.39(Suppl 1). Performed By: #### 2 4321-2 ####[facility] LABCLIA [id number] [place] [address] [place] HCO3 (Bld) [Moles/Vol] 25 mmol/L Normal 22-26 [facility] Comment on above: Order Comment: Speci men Type: ARTERIAL BLOOD SPECIMENOrdering Facility: [facility] Address: [address] [place] [address] Performed By: #### A LLBG ####[facility] LABIA [id number] [place] [address] [place] Hematocrit (Bld) [Volume fraction] 33.9 % Low 39.0-51.0 [facility] Comment on above: Order Comment: Speci men Type: ARTERIAL BLOOD SPECIMENOrdering Facility: [facility] Address: [address] [place] [address] Performed By: #### A LLBG ####[facility] LABIA [id number] [place] [address] [place] Hemoglobin (Bld) [Mass/Vol] 11.0 g/dL Low 13.0-17.0 [facility] Comment on above: Order Comment: Speci men Type: ARTERIAL BLOOD SPECIMENOrdering Facility: [facility] Address: [address] [place] [address] Performed By: #### A LLBG ####[facility] LABIA [id number] [place] [address] [place] Lactate [Moles/Vol] 1.0 mmol/L Normal 0.5-2.2 [facility] Comment on above: Order Comment: Speci men Type: ARTERIAL BLOOD SPECIMENOrdering Facility: [facility] Address: [address] [place] [address] Performed By: #### A LLBG ####[facility] LABCLIA [id number] [address] [place] [address] [place] Methemoglobin (Bld) [Mass fraction] 1.0 % Normal 0.0-1.5 [facility] Comment on above: Order Comment: Speci men Type: ARTERIAL BLOOD SPECIMENOrdering Facility: [facility] Address: [address] [place] [address] Performed By: #### A LLBG ####[facility] LABCLIA [id number] [address] [place] [address] [place] O2 THERAPY RA=Room Air Normal [facility] Comment on above: Order Comment: Speci men Type: ARTERIAL BLOOD SPECIMENOrdering Facility: [facility] Address: [address] [place] [address] Performed By: #### A LLBG ####[facility] LABCLIA [id number] [address] [place] [address] [place] Oxygen (Bld) [Partial pressure] 169 mm Hg High 85-95 [facility] Comment on above: Order Comment: Speci men Type: ARTERIAL BLOOD SPECIMENOrdering Facility: [facility] Address: [address] [place], [place] [id number] Performed By: #### A LLBG ####[facility] LABCLIA [id number] [address] [place] [address] [place] Oxygen adjusted to patient's actual temperature (Bld) [Partial pressure] 167 mmHg High 85-95 [facility] Comment on above: Order Comment: Speci men Type: ARTERIAL BLOOD SPECIMENOrdering Facility: [facility] Address: [address] [place], [place] [id number] Performed By: #### A LLBG ####[facility] LABCLIA [id number] [address] [place] [address] [place] Oxyhemoglobin (BldA) [Mass fraction] 97 % Normal 95-98 [facility] Comment on above: Order Comment: Speci men Type: ARTERIAL BLOOD SPECIMENOrdering Facility: [facility] Address: [address] [place] [address] Performed By: #### A LLBG ####[facility] LABCLIA [id number] [place] [address] [place] pH (Bld) 7.39 [pH] Normal 7.35-7.45 [facility] Comment on above: Order Comment: Speci men Type: ARTERIAL BLOOD SPECIMENOrdering Facility: [facility] Address: [address] [place] [address] Performed By: #### A LLBG ####[facility] LABCLIA [id number] [place] [address] [place] pH adjusted to patient's actual temperature (Bld) 7.39 Normal 7.35-7.45 [facility] Comment on above: Order Comment: Speci men Type: ARTERIAL BLOOD SPECIMENOrdering Facility: [facility] Address: [address] [place] [address] Performed By: #### A LLBG ####[facility] LABCLIA [id number] [place] [address] [place] PO2 / FIO2 RATIO 805 mmHg Normal >300 [facility] Comment on above: Order Comment: Speci men Type: ARTERIAL BLOOD SPECIMENOrdering Facility: [facility] Address: [address] [place] [address] Performed By: #### A LLBG ####[facility] LABCLIA [id number] [place] [id number] [place] Potassium [Moles/Vol] 5.3 mmol/L High 3.5-5.0 [facility] Comment on above: Order Comment: Speci men Type: ARTERIAL BLOOD SPECIMENOrdering Facility: [facility] Address: [address] [place] [address] Performed By: #### A LLBG ####[facility] LABCLIA [id number] [place] [id number] [place] Sodium [Moles/Vol] 131 mmol/L Low 136-144 [facility] Comment on above: Order Comment: Speci men Type: ARTERIAL BLOOD SPECIMENOrdering Facility: [facility] Address: [address] [place] [address] Performed By: #### A LLBG ####[facility] LABCLIA [id number] [place] [address] [place] Base excess Calc (Bld) [Moles/Vol] 0 mmol/L Normal 0-2 [facility] Comment on above: Order Comment: Speci men Type: ARTERIAL BLOOD SPECIMENOrdering Facility: [facility] Address: [address] [place] [address] Performed By: #### A LLBG ####[facility] LABCLIA [id number] [place] [address] [place] Body temperature 97.52 [degF] Normal [facility] Comment on above: Order Comment: Speci men Type: ARTERIAL BLOOD SPECIMENOrdering Facility: [facility] Address: [address] [place] [address] Performed By: #### A LLBG ####[facility] LABCLIA [id number] [place] [address] [place] Calcium.ionized (Bld) [Mass/Vol] 1.10 mmol/L Normal 1.08-1.30 [facility] Comment on above: Order Comment: Speci men Type: ARTERIAL BLOOD SPECIMENOrdering Facility: [facility] Address: [address] [place] [address] Performed By: #### A LLBG ####[facility] LABCLIA [id number] [place] [address] [place] Calcium.ionized adjusted to pH 7.4 (BldA) [Moles/Vol] 1.09 mmol/L Normal 1.08-1.30 [facility] Comment on above: Order Comment: Speci men Type: ARTERIAL BLOOD SPECIMENOrdering Facility: [facility] Address: [address] [place] [address] Performed By: #### A LLBG ####[facility] LABCLIA [id number] [address] [address] [place] Carboxyhemoglobin (BldA) [Mass fraction] 1.3 % Normal 0.0-2.0 [facility] Comment on above: Order Comment: Speci men Type: ARTERIAL BLOOD SPECIMENOrdering Facility: [facility] Address: [address] [place] [address] Result Comment: Carb oxyhemoglobin Reference Range for Smokers: 2.0-8.0% Performed By: #### A LLBG ####[facility] LABCLIA [id number] [place] [address] [place] CO2 (Bld) [Partial pressure] 45 mm Hg Normal 36-46 [facility] Comment on above: Order Comment: Speci men Type: ARTERIAL BLOOD SPECIMENOrdering Facility: [facility] Address: [address] [place] [address] Performed By: #### A LLBG ####[facility] LABCLIA [id number] [place] [address] [place] CO2 adjusted to patient's actual temperature (Bld) [Partial pressure] 43 mmHg Normal 36-46 [facility] Comment on above: Order Comment: Speci men Type: ARTERIAL BLOOD SPECIMENOrdering Facility: [facility] Address: [address] [place] [address] Performed By: #### A LLBG ####[facility] LABCLIA [id number] [place] [address] [place] Glucose [Mass/Vol] 179 mg/dL High 60-105 [facility] Comment on above: Order Comment: Speci men Type: ARTERIAL BLOOD SPECIMENOrdering Facility: [facility] Address: [address] [place] [address] Performed By: #### A LLBG ####[facility] LABCLIA [id number] [place] [address] [place] HCO3 (Bld) [Moles/Vol] 25 mmol/L Normal 22-26 [facility] Comment on above: Order Comment: Speci men Type: ARTERIAL BLOOD SPECIMENOrdering Facility: [facility] Address: [address] [place] [address] Performed By: #### A LLBG ####[facility] LABCLIA [id number] [place] [address] [place] Hematocrit (Bld) [Volume fraction] 35.9 % Low 39.0-51.0 [facility] Comment on above: Order Comment: Speci men Type: ARTERIAL BLOOD SPECIMENOrdering Facility: [facility] Address: [address] [place] [address] Performed By: #### A LLBG ####[facility] LABIA [id number] [place] [address] [place] Hemoglobin (Bld) [Mass/Vol] 11.6 g/dL Low 13.0-17.0 [facility] Comment on above: Order Comment: Speci men Type: ARTERIAL BLOOD SPECIMENOrdering Facility: [facility] Address: [address] [place] [address] Performed By: #### A LLBG ####[facility] LABCLIA [id number] [place] [address] [place] Lactate [Moles/Vol] 1.3 mmol/L Normal 0.5-2.2 [facility] Comment on above: Order Comment: Speci men Type: ARTERIAL BLOOD SPECIMENOrdering Facility: [facility] Address: [address] [place] [address] Performed By: #### A LLBG ####[facility] LABCLIA [id number] [place] [address] [place] Methemoglobin (Bld) [Mass fraction] 1.4 % Normal 0.0-1.5 [facility] Comment on above: Order Comment: Speci men Type: ARTERIAL BLOOD SPECIMENOrdering Facility: [facility] Address: [address] [place] [address] Performed By: #### A LLBG ####[facility] LABCLIA [id number] [place] [id number] [place] O2 THERAPY RA=Room Air Normal [facility] Comment on above: Order Comment: Speci men Type: ARTERIAL BLOOD SPECIMENOrdering Facility: [facility] Address: [address] [place] [address] Performed By: #### A LLBG ####[facility] LABCLIA [id number] [place] [id number] [place] Oxygen (Bld) [Partial pressure] 95 mm Hg Normal 85-95 [facility] Comment on above: Order Comment: Speci men Type: ARTERIAL BLOOD SPECIMENOrdering Facility: [facility] Address: [address] [place] [address] Performed By: #### A LLBG ####[facility] LABCLIA [id number] [place] [id number] [place] Oxygen adjusted to patient's actual temperature (Bld) [Partial pressure] 92 mmHg Normal 85-95 [facility] Comment on above: Order Comment: Speci men Type: ARTERIAL BLOOD SPECIMENOrdering Facility: [facility] Address: [address] [place] [address] Performed By: #### A LLBG ####[facility] LABCLIA [id number] [place] [id number] [place] Oxyhemoglobin (BldA) [Mass fraction] 94 % Low 95-98 [facility] Comment on above: Order Comment: Speci men Type: ARTERIAL BLOOD SPECIMENOrdering Facility: [facility] Address: [address] [place], [place] [id number] Performed By: #### A LLBG ####[facility] LABCLIA [id number] [address] [address] [place] pH (Bld) 7.37 [pH] Normal 7.35-7.45 [facility] Comment on above: Order Comment: Speci men Type: ARTERIAL BLOOD SPECIMENOrdering Facility: [facility] Address: [address] [place] [address] Performed By: #### A LLBG ####[facility] LABCLIA [id number] [place] [address] [place] pH adjusted to patient's actual temperature (Bld) 7.38 Normal 7.35-7.45 [facility] Comment on above: Order Comment: Speci men Type: ARTERIAL BLOOD SPECIMENOrdering Facility: [facility] Address: [address] [place] [address] Performed By: #### A LLBG ####[facility] LABCLIA [id number] [place] [address] [place] PO2 / FIO2 RATIO 452 mmHg Normal >300 [facility] Comment on above: Order Comment: Speci men Type: ARTERIAL BLOOD SPECIMENOrdering Facility: [facility] Address: [address] [place] [address] Performed By: #### A LLBG ####[facility] LABCLIA [id number] [place] [address] [place] Potassium [Moles/Vol] 5.3 mmol/L High 3.5-5.0 [facility] Comment on above: Order Comment: Speci men Type: ARTERIAL BLOOD SPECIMENOrdering Facility: [facility] Address: [address] [place] [address] Performed By: #### A LLBG ####[facility] LABCLIA [id number] [place] [id number] [place] Sodium [Moles/Vol] 130 mmol/L Low 136-144 [facility] Comment on above: Order Comment: Speci men Type: ARTERIAL BLOOD SPECIMENOrdering Facility: [facility] Address: [address] [place] [address] Performed By: #### A LLBG ####[facility] LABIA [id number] [place] [address] [place] Base excess Calc (Bld) [Moles/Vol] 2 mmol/L Normal 0-2 [facility] Comment on above: Order Comment: Speci men Type: ARTERIAL BLOOD SPECIMENOrdering Facility: [facility] Address: [address] [place] [address] Performed By: #### A LLBG ####[facility] LABIA [id number] [place] [address] [place] Body temperature 98.6 [degF] Normal [facility] Comment on above: Order Comment: Speci men Type: ARTERIAL BLOOD SPECIMENOrdering Facility: [facility] Address: [address] [place] [address] Performed By: #### A LLBG ####[facility] LABIA [id number] [place] [address] [place] Calcium.ionized (Bld) [Mass/Vol] 1.10 mmol/L Normal 1.08-1.30 [facility] Comment on above: Order Comment: Speci men Type: ARTERIAL BLOOD SPECIMENOrdering Facility: [facility] Address: [address] [place] [address] Performed By: #### A LLBG ####[facility] LABIA [id number] [place] [address] [place] Calcium.ionized adjusted to pH 7.4 (BldA) [Moles/Vol] 1.08 mmol/L Normal 1.08-1.30 [facility] Comment on above: Order Comment: Speci men Type: ARTERIAL BLOOD SPECIMENOrdering Facility: [facility] Address: [address] [place] [address] Performed By: #### A LLBG ####[facility] LABCLIA [id number] [place] [address] [place] Carboxyhemoglobin (BldA) [Mass fraction] 1.4 % Normal 0.0-2.0 [facility] Comment on above: Order Comment: Speci men Type: ARTERIAL BLOOD SPECIMENOrdering Facility: [facility] Address: [address] [place] [address] Result Comment: Carb oxyhemoglobin Reference Range for Smokers: 2.0-8.0% Performed By: #### A LLBG ####[facility] LABCLIA [id number] [place] [address] [place] CO2 (Bld) [Partial pressure] 47 mm Hg High 36-46 [facility] Comment on above: Order Comment: Speci men Type: ARTERIAL BLOOD SPECIMENOrdering Facility: [facility] Address: [address] [place] [address] Performed By: #### A LLBG ####[facility] LABCLIA [id number] [place] [address] [place] Glucose [Mass/Vol] 228 mg/dL High 60-105 [facility] Comment on above: Order Comment: Speci men Type: ARTERIAL BLOOD SPECIMENOrdering Facility: [facility] Address: [address] [place] [address] Performed By: #### A LLBG ####[facility] LABCLIA [id number] [place] [address] [place] HCO3 (Bld) [Moles/Vol] 27 mmol/L High 22-26 [facility] Comment on above: Order Comment: Speci men Type: ARTERIAL BLOOD SPECIMENOrdering Facility: [facility] Address: [address] [place] [address] Performed By: #### A LLBG ####[facility] LABCLIA [id number] [place] [address] [place] Hematocrit (Bld) [Volume fraction] 34.4 % Low 39.0-51.0 [facility] Comment on above: Order Comment: Speci men Type: ARTERIAL BLOOD SPECIMENOrdering Facility: [facility] Address: [address] [place] [address] Performed By: #### A LLBG ####[facility] LABIA [id number] [place] [address] [place] Hemoglobin (Bld) [Mass/Vol] 11.2 g/dL Low 13.0-17.0 [facility] Comment on above: Order Comment: Speci men Type: ARTERIAL BLOOD SPECIMENOrdering Facility: [facility] Address: [address] [place] [address] Performed By: #### A LLBG ####[facility] LABIA [id number] [place] [address] [place] Lactate [Moles/Vol] 1.2 mmol/L Normal 0.5-2.2 [facility] Comment on above: Order Comment: Speci men Type: ARTERIAL BLOOD SPECIMENOrdering Facility: [facility] Address: [address] [place] [address] Performed By: #### A LLBG ####[facility] LABIA [id number] [address] [place] Methemoglobin (Bld) [Mass fraction] 1.3 % Normal 0.0-1.5 [facility] Comment on above: Order Comment: Speci men Type: ARTERIAL BLOOD SPECIMENOrdering Facility: [facility] Address: [address] [place] [address] Performed By: #### A LLBG ####[facility] LABIA [id number] [place] [address] [place] O2 THERAPY RA=Room Air Normal [facility] Comment on above: Order Comment: Speci men Type: ARTERIAL BLOOD SPECIMENOrdering Facility: [facility] Address: [address] [place] [address] Performed By: #### A LLBG ####[facility] LABCLIA [id number] [place] [id number] [place] Oxygen (Bld) [Partial pressure] 69 mm Hg Low 85-95 [facility] Comment on above: Order Comment: Speci men Type: ARTERIAL BLOOD SPECIMENOrdering Facility: [facility] Address: [address] [place] [address] Performed By: #### A LLBG ####[facility] LABCLIA [id number] [place] [id number] [place] Oxyhemoglobin (BldA) [Mass fraction] 90 % Low 95-98 [facility] Comment on above: Order Comment: Speci men Type: ARTERIAL BLOOD SPECIMENOrdering Facility: [facility] Address: [address] [place] [address] Performed By: #### A LLBG ####[facility] LABCLIA [id number] [place] [id number] [place] pH (Bld) 7.38 [pH] Normal 7.35-7.45 [facility] Comment on above: Order Comment: Speci men Type: ARTERIAL BLOOD SPECIMENOrdering Facility: [facility] Address: [address] [place] [address] Performed By: #### A LLBG ####[facility] LABCLIA [id number] [place] [id number] [place] PO2 / FIO2 RATIO 329 mmHg Normal >300 [facility] Comment on above: Order Comment: Speci men Type: ARTERIAL BLOOD SPECIMENOrdering Facility: [facility] Address: [address] [place] [address] Performed By: #### A LLBG ####[facility] LABCLIA [id number] [place] [id number] [place] Potassium [Moles/Vol] 5.1 mmol/L High 3.5-5.0 [facility] Comment on above: Order Comment: Speci men Type: ARTERIAL BLOOD SPECIMENOrdering Facility: [facility] Address: [address] [place] [address] Performed By: #### A LLBG ####[facility] LABCLIA [id number] [address] [address] [place] Sodium [Moles/Vol] 130 mmol/L Low 136-144 [facility] Comment on above: Order Comment: Speci men Type: ARTERIAL BLOOD SPECIMENOrdering Facility: [facility] Address: [address] [place] [address] Performed By: #### A LLBG ####[facility] LABCLIA [id number] [address] [address] [place] CAR Basic Metabolic Profile (BMP )on 11-25-2024 BUN Normal 4-19 [facility] Comment on above: Result Comment: Canc elled via OM: MD Ordered Performed By: #### L 500.2500, L100.0100 ####[facility] [address] [place], [address] BUN/CRE Normal 10-20 [facility] Comment on above: Result Comment: Canc elled via OM: MD Ordered Performed By: #### L 500.2500, L100.0100 ####[facility] [address] [place], [address] Calcium Normal 7.6-11.0 [facility] Comment on above: Result Comment: Canc elled via OM: MD Ordered Performed By: #### L 500.2500, L100.0100 ####[facility] [address] [place], [address] CL Normal 98-108 [facility] Comment on above: Result Comment: Canc elled via OM: MD Ordered Performed By: #### L 500.2500, L100.0100 ####[facility] [address] [place], [address] CO2 Normal 21.0-32.0 [facility] Comment on above: Result Comment: Canc elled via OM: MD Ordered Performed By: #### L 500.2500, L100.0100 ####[facility] [address] [place], [address] CREAT,SERUM Normal 0.70-1.20 [facility] Comment on above: Result Comment: Canc elled via OM: MD Ordered Performed By: #### L 500.2500, L100.0100 ####[facility] [address] [place], [address] eGFR Normal >60 [facility] Comment on above: Result Comment: Canc elled via OM: MD Ordered Performed By: #### L 500.2500, L100.0100 ####[facility] [address] [place], [address] GAP Normal 5-15 [facility] Comment on above: Result Comment: Canc elled via OM: MD Ordered Performed By: #### L 500.2500, L100.0100 ####[facility] [address] [place], [address] GLU Normal 70-99 [facility] Comment on above: Result Comment: Canc elled via OM: MD Ordered Performed By: #### L 500.2500, L100.0100 ####[facility] [address] [place], [address] Potassium Normal 3.3-5.1 [facility] Comment on above: Result Comment: Canc elled via OM: MD Ordered Performed By: #### L 500.2500, L100.0100 ####[facility] [address] [place], [address] Basic Metabolic Profile (BMP) Normal 133-145 [facility] Comment on above: Result Comment: Canc elled via OM: MD Ordered Performed By: #### L 500.2500, L100.0100 ####[facility] [address] [place], [address] Basic metabolic 2000 panelon 11-25-2024 Anion gap [Moles/Vol] 18 mmol/L High 8-15 [facility] Comment on above: Order Comment: Speci men Type: BLOOD SPECIMENOrdering Facility: [facility] Address: [address] [place] [address] Performed By: #### 1 9123-9, 2777-, 05155-2 ####[facility] LABCLIA [id number] [place] [id number] [place] Calcium [Mass/Vol] 8.9 mg/dL Normal 8.5-10.2 [facility] Comment on above: Order Comment: Speci men Type: BLOOD SPECIMENOrdering Facility: [facility] Address: [address] [place] [address] Performed By: #### 1 9123-9, 27711-20, 97920-4 ####[facility] LABCLIA [id number] [place] [id number] [place] Chloride [Moles/Vol] 90 mmol/L Low 98-107 [facility] Comment on above: Order Comment: Speci men Type: BLOOD SPECIMENOrdering Facility: [facility] Address: [address] [place], [place] [address] Performed By: #### 1 9123-9, 27711-20, 96170-2 ####[facility] LABCLIA [id number] [address] [address] [place] CO2 [Moles/Vol] 23 mmol/L Normal 22-30 [facility] Comment on above: Order Comment: Speci men Type: BLOOD SPECIMENOrdering Facility: [facility] Address: [address] [place], [place] [address] Performed By: #### 1 9123-9, 2777-1, 29464-1 ####[facility] LABCLIA [id number] [place] [id number] [place] Creatinine [Mass/Vol] 6.58 mg/dL High 0.73-1.22 [facility] Comment on above: Order Comment: Lesvia aleman Type: BLOOD SPECIMENOrdering Facility: [facility] Address: [address] [place] [address] Performed By: #### 1 9123-9, 2777-1, 03278-1 ####[facility] [id number] [place] [address] [place] Creatinine and Glomerular filtration rate.predicted panel (S/P/Bld) 8 mL/min/1.73m??? Low >=60 [facility] Comment on above: Order Comment: Lesvia aleman Type: BLOOD SPECIMENOrdering Facility: [facility] Address: [address] [place] [address] Result Comment: Tessa mated Glomerular Filtration Rate [...] accurately reflect actual GFR. Performed By: #### 1 9123-9, 2777-, 80359-1 ####[facility] [id number] [place] [id number] [place] Glucose [Mass/Vol] 75 mg/dL Normal 74-99 [facility] Comment on above: Order Comment: Lesvia ash Type: BLOOD SPECIMENOrdering Facility: [facility] Address: [address] [place] [address] Result Comment: The [place] [employer] (ADA) provides guidance for cutoff values for fasting glucose and random glucose. The ADA defines fasting as no caloric intake for at least 8 hours. Fasting plasma glucose results between 100 to 125 mg/dL indicate increased risk for diabetes (prediabetes).Fasting plasma glucose results greater than or equal to 126 mg/dL meet the criteria for diagnosis of diabetes. In the absence of unequivocal hyperglycemia, results should be confirmed by repeat testing. In a patient with classic symptoms of hyperglycemia or hyperglycemic crisis, random plasma glucose results greater than or equal to 200 mg/dL meet the criteria for diagnosis of diabetes.Reference: Standards of Medical Care in Diabetes 2016, [place] [employer]. Diabetes Care. 2016.39(Suppl 1). Performed By: #### 1 9123-9, 2777-, 94306-0 ####[facility] LABCLIA [id number] [place] [address] [place] Potassium [Moles/Vol] 5.2 mmol/L High 3.7-5.1 [facility] Comment on above: Order Comment: Speci men Type: BLOOD SPECIMENOrdering Facility: [facility] Address: [address] [place] [address] Performed By: #### 1 9123-9, 2776-05, 64434-2 ####[facility] LABCLIA [id number] [place] [address] [place] Sodium [Moles/Vol] 131 mmol/L Low 136-144 [facility] Comment on above: Order Comment: Speci men Type: BLOOD SPECIMENOrdering Facility: [facility] Address: [address] [place] [address] Performed By: #### 1 9123-9, 27711-20, 86929-9 ####[facility] LABCLIA [id number] [place] [address] [place] Urea nitrogen [Mass/Vol] 88 mg/dL High 9-24 [facility] Comment on above: Order Comment: Speci men Type: BLOOD SPECIMENOrdering Facility: [facility] Address: [address] [place] [address] Performed By: #### 1 9123-9, 27711-20, 07742-7 ####[facility] LABCLIA [id number] [address] [address] [place] Anion gap [Moles/Vol] 19 mmol/L High 8-15 [facility] Comment on above: Order Comment: Speci men Type: BLOOD SPECIMENOrdering Facility: [facility] Address: [address] [place] [address] Performed By: #### 2 4321-2 ####[facility] LABCLIA [id number] [facility] [address] [address] [place] Calcium [Mass/Vol] 8.9 mg/dL Normal 8.5-10.2 [facility] Comment on above: Order Comment: Speci men Type: BLOOD SPECIMENOrdering Facility: [facility] Address: [address] [place] [address] Performed By: #### 2 4321-2 ####[facility] LABCLIA [id number] [facility] [address] [place] [address] [place] Chloride [Moles/Vol] 89 mmol/L Low 98-107 [facility] Comment on above: Order Comment: Speci men Type: BLOOD SPECIMENOrdering Facility: [facility] Address: [address] [place], [place] [address] Performed By: #### 2 4321-2 ####[facility] LABCLIA [id number] [facility] [address] [place] [address] [place] CO2 [Moles/Vol] 22 mmol/L Normal 22-30 [facility] Comment on above: Order Comment: Speci men Type: BLOOD SPECIMENOrdering Facility: [facility] Address: [address] [place] [address] Performed By: #### 2 4321-2 ####[facility] LABCLIA [id number] [facility] [address] [address] [place] Creatinine [Mass/Vol] 6.20 mg/dL High 0.73-1.22 [facility] Comment on above: Order Comment: Speci men Type: BLOOD SPECIMENOrdering Facility: [facility] Address: [address] [place] [address] Performed By: #### 2 4321-2 ####[facility] LABCLIA [id number] [place] [id number] [place] Creatinine and Glomerular filtration rate.predicted panel (S/P/Bld) 8 mL/min/1.73m??? Low >=60 [facility] Comment on above: Order Comment: Speci men Type: BLOOD SPECIMENOrdering Facility: [facility] Address: [address] [place] [address] Result Comment: Tessa mated Glomerular Filtration Rate [...] reflect actual GFR. Performed By: #### 2 4321-2 ####[facility] LABCLIA [id number] [place] [address] [place] Potassium [Moles/Vol] 5.5 mmol/L High 3.7-5.1 [facility] Comment on above: Order Comment: Speci men Type: BLOOD SPECIMENOrdering Facility: [facility] Address: [address] [place] [address] Performed By: #### 2 4321-2 ####[facility] LABCLIA [id number] [place] [id number] [place] Sodium [Moles/Vol] 130 mmol/L Low 136-144 [facility] Comment on above: Order Comment: Speci men Type: BLOOD SPECIMENOrdering Facility: [facility] Address: [address] [place] [address] Performed By: #### 2 4321-2 ####[facility] LABCLIA [id number] [place] [id number] [place] Urea nitrogen [Mass/Vol] 83 mg/dL High 9-24 [facility] Comment on above: Order Comment: Speci men Type: BLOOD SPECIMENOrdering Facility: [facility] Address: [address] [place] [address] Performed By: #### 2 4321-2 ####[facility] LABCLIA [id number] [id number] [address] [place] CBC W/Diff, Automatedon 07-0 -2024 Absolute Neut Normal 2.0-7.7 [facility] Comment on above: Result Comment: Canc elled via OM: MD Ordered Performed By: #### L 500.2500, L100.0100 ####[facility] [address] [place], [address] HCT Normal 40-54 [facility] Comment on above: Result Comment: Canc elled via OM: MD Ordered Performed By: #### L 500.2500, L100.0100 ####[facility] [address] [place], [address] HGB Normal 13.0-16.5 [facility] Comment on above: Result Comment: Canc elled via OM: MD Ordered Performed By: #### L 500.2500, L100.0100 ####[facility] [address] [place], [address] MCH Normal 27.0-32.0 [facility] Comment on above: Result Comment: Canc elled via OM: MD Ordered Performed By: #### L 500.2500, L100.0100 ####[facility] [address] [place], [address] MCHC Normal 32-36 [facility] Comment on above: Result Comment: Canc elled via OM: MD Ordered Performed By: #### L 500.2500, L100.0100 ####[facility] [address] [place], [address] MCV Normal 80-94 [facility] Comment on above: Result Comment: Canc elled via OM: MD Ordered Performed By: #### L 500.2500, L100.0100 ####[facility] [address] [place], [address] NEUT% Normal 47-70 [facility] Comment on above: Result Comment: Canc elled via OM: MD Ordered Performed By: #### L 500.2500, L100.0100 ####[facility] [address] [place], [address] PLT Normal 150-450 [facility] Comment on above: Result Comment: Canc elled via OM: MD Ordered Performed By: #### L 500.2500, L100.0100 ####[facility] [address] [place], [address] RBC Normal 4.6-6.2 [facility] Comment on above: Result Comment: Canc elled via OM: MD Ordered Performed By: #### L 500.2500, L100.0100 ####[facility] [address] [place], [address] RDW CV Normal 11.6-14.6 [facility] Comment on above: Result Comment: Canc elled via OM: MD Ordered Performed By: #### L 500.2500, L100.0100 ####[facility] [address] [place], [address] RDW SD Normal 35.1-43.9 [facility] Comment on above: Result Comment: Canc elled via OM: MD Ordered Performed By: #### L 500.2500, L100.0100 ####[facility] [address] [place], [address] WBC Normal 4.4-11.0 [facility] Comment on above: Result Comment: Canc elled via OM: MD Ordered Performed By: #### L 500.2500, L100.0100 ####[facility] [address] [place], [address] CBC panel Auto (Bld)on 11-25 Erythrocyte distribution width (RBC) [Ratio] 16.2 % High 11.5-15.0 [facility] Comment on above: Order Comment: Speci men Type: BLOOD SPECIMENOrdering Facility: [facility] Address: [address] [place] [address] Performed By: #### 5 8410-2 ####[facility] LABIA [id number] [place] [address] [place] Hematocrit (Bld) [Volume fraction] 34.0 % Low 39.0-51.0 [facility] Comment on above: Order Comment: Speci men Type: BLOOD SPECIMENOrdering Facility: [facility] Address: [address] [place] [address] Performed By: #### 5 8410-2 ####[facility] LABIA [id number] [address] [place] Hemoglobin (Bld) [Mass/Vol] 10.6 g/dL Low 13.0-17.0 [facility] Comment on above: Order Comment: Speci men Type: BLOOD SPECIMENOrdering Facility: [facility] Address: [address] [place] [address] Performed By: #### 5 8410-2 ####[facility] LABIA [id number] [place] [address] [place] MCH (RBC) [Entitic mass] 27.8 pg Normal 26.0-34.0 [facility] Comment on above: Order Comment: Speci men Type: BLOOD SPECIMENOrdering Facility: [facility] Address: [address] [place] [address] Performed By: #### 5 8410-2 ####[facility] LABIA [id number] [place] [id number] [place] MCHC (RBC) [Mass/Vol] 31.2 g/dL Normal 30.5-36.0 [facility] Comment on above: Order Comment: Speci men Type: BLOOD SPECIMENOrdering Facility: [facility] Address: [address] [place] [address] Performed By: #### 5 8410-2 ####[facility] LABIA [id number] [address] [address] [place] MCV (RBC) [Entitic vol] 89.2 fL Normal 80.0-100.0 [facility] Comment on above: Order Comment: Speci men Type: BLOOD SPECIMENOrdering Facility: [facility] Address: [address] [place] [address] Performed By: #### 5 8410-2 ####[facility] LABIA [id number] [place] [address] [place] Nucleated RBC (Bld) [#/Vol] 10*3/uL Normal <0.01 [facility] Comment on above: Order Comment: Speci men Type: BLOOD SPECIMENOrdering Facility: [facility] Address: [address] [place] [address] Performed By: #### 5 8410-2 ####[facility] LABIA [id number] [place] [address] [place] Platelet mean volume (Bld) [Entitic vol] 11.8 fL Normal 9.0-12.7 [facility] Comment on above: Order Comment: Speci men Type: BLOOD SPECIMENOrdering Facility: [facility] Address: [address] [place] [address] Performed By: #### 5 8410-2 ####[facility] LABIA [id number] [place] [address] [place] Platelets (Bld) [#/Vol] 142 10*3/uL Low 150-400 [facility] Comment on above: Order Comment: Speci men Type: BLOOD SPECIMENOrdering Facility: [facility] Address: [address] [place] [address] Performed By: #### 5 8410-2 ####[facility] LABCLIA [id number] [place] [id number] [place] RBC (Bld) [#/Vol] 3.81 10*6/uL Low 4.20-6.00 [facility] Comment on above: Order Comment: Speci men Type: BLOOD SPECIMENOrdering Facility: [facility] Address: [address] [place] [address] Performed By: #### 5 8410-2 ####[facility] LABIA [id number] [place] [address] [place] WBC (Bld) [#/Vol] 8.99 10*3/uL Normal 3.70-11.00 [facility] Comment on above: Order Comment: Speci men Type: BLOOD SPECIMENOrdering Facility: [facility] Address: [address] [place] [address] Performed By: #### 5 8410-2 ####[facility] [id number] [place] [id number] [place] CONSULT PROGon 11-25-2024 CONSULT PROG Normal [facility] Comprehensive metabolic 2000 panelon 11-25-2024 Albumin [Mass/Vol] 3.5 g/dL Low 3.9-4.9 [facility] Comment on above: Order Comment: Speci men Type: BLOOD SPECIMENOrdering Facility: [facility] Address: [address] [place] [address] Performed By: #### 1 9123-9, 25583-2 ####[facility] [id number] [place] [id number] [place] ALP [Catalytic activity/Vol] 66 U/L Normal 38-113 [facility] Comment on above: Order Comment: Speci men Type: BLOOD SPECIMENOrdering Facility: [facility] Address: [address] [place] [address] Performed By: #### 1 9123-9, 73901-2 ####[facility] LABCLIA [id number] [facility] [address] [place] [address] [place] ALT [Catalytic activity/Vol] 37 U/L Normal 10-54 [facility] Comment on above: Order Comment: Speci men Type: BLOOD SPECIMENOrdering Facility: [facility] Address: [address] [place] [address] Performed By: #### 1 23-9, 07961-0 ####[facility] LABCLIA [id number] [facility] [address] [place] [address] [place] Anion gap [Moles/Vol] 19 mmol/L High 8-15 [facility] Comment on above: Order Comment: Speci men Type: BLOOD SPECIMENOrdering Facility: [facility] Address: [address] [place] [address] Performed By: #### 1 9123-9, 23576-0 ####[facility] LABCLIA [id number] [facility] [address] [place] [address] [place] AST [Catalytic activity/Vol] 21 U/L Normal 14-40 [facility] Comment on above: Order Comment: Speci men Type: BLOOD SPECIMENOrdering Facility: [facility] Address: [address] [place] [address] Performed By: #### 1 9123-9, 21231-6 ####[facility] LABCLIA [id number] [address] [place] [address] [place] Bilirubin [Mass/Vol] 0.2 mg/dL Normal 0.2-1.3 [facility] Comment on above: Order Comment: Speci men Type: BLOOD SPECIMENOrdering Facility: [facility] Address: [address] [place] [address] Performed By: #### 1 9123-9, 38947-2 ####[facility] LABCLIA [id number] [address] [place] [address] [place] Calcium [Mass/Vol] 8.9 mg/dL Normal 8.5-10.2 [facility] Comment on above: Order Comment: Speci men Type: BLOOD SPECIMENOrdering Facility: [facility] Address: [address] [place], [place] [address] Performed By: #### 1 9123-9, 08470-2 ####[facility] LABCLIA [id number] [facility] [address] [place] [address] [place] Chloride [Moles/Vol] 90 mmol/L Low 98-107 [facility] Comment on above: Order Comment: Speci men Type: BLOOD SPECIMENOrdering Facility: [facility] Address: [address] [place], [place] [address] Performed By: #### 1 9123-9, ####[facility] LABCLIA [id number] [place] [id number] [place] CO2 [Moles/Vol] 23 mmol/L Normal 22-30 [facility] Comment on above: Order Comment: Speci men Type: BLOOD SPECIMENOrdering Facility: [facility] Address: [address] [place] [address] Performed By: #### 1 9123-9, 29880-7 ####[facility] LABCLIA [id number] [facility] [address] [place] [address] [place] Creatinine [Mass/Vol] 6.00 mg/dL High 0.73-1.22 [facility] Comment on above: Order Comment: Speci men Type: BLOOD SPECIMENOrdering Facility: [facility] Address: [address] [place] [address] Performed By: #### 1 9123-9, 19398-3 ####[facility] LABCLIA [id number] [facility] [place] [id number], [place] [address] [place] Creatinine and Glomerular filtration rate.predicted panel (S/P/Bld) 8 mL/min/1.73m??? Low >=60 [facility] Comment on above: Order Comment: Lesvia aleman Type: BLOOD SPECIMENOrdering Facility: [facility] Address: [address] [place] [address] Result Comment: Tessa mated Glomerular Filtration Rate [...] accurately reflect actual GFR. Performed By: #### 1 9123-9, 29512-8 ####[facility] [id number] [place] [address] [place] Glucose [Mass/Vol] 227 mg/dL High 74-99 [facility] Comment on above: Order Comment: Lesvia aleman Type: BLOOD SPECIMENOrdering Facility: [facility] Address: [address] [place] [address] Result Comment: The [place] [employer] (ADA) provides guidance for cutoff values for fasting glucose and random glucose. The ADA defines fasting as no caloric intake for at least 8 hours. Fasting plasma glucose results between 100 to 125 mg/dL indicate increased risk for diabetes (prediabetes).Fasting plasma glucose results greater than or equal to 126 mg/dL meet the criteria for diagnosis of diabetes. In the absence of unequivocal hyperglycemia, results should be confirmed by repeat testing. In a patient with classic symptoms of hyperglycemia or hyperglycemic crisis, random plasma glucose results greater than or equal to 200 mg/dL meet the criteria for diagnosis of diabetes.Reference: Standards of Medical Care in Diabetes 2016, [place] [employer]. Diabetes Care. 2016.39(Suppl 1). Performed By: #### 1 9123-9, 76305-9 ####[facility] [id number] [place] [id number] [place] Potassium [Moles/Vol] 5.3 mmol/L High 3.7-5.1 [facility] Comment on above: Order Comment: Lesvia aleman Type: BLOOD SPECIMENOrdering Facility: [facility] Address: [address] [place], [place] [id number] Performed By: #### 1 9123-9, 99654-0 ####[facility] LABCLIA [id number] [address] [address] [place] Protein [Mass/Vol] 6.6 g/dL Normal 6.3-8.0 [facility] Comment on above: Order Comment: Speci men Type: BLOOD SPECIMENOrdering Facility: [facility] Address: [address] [place] [address] Performed By: #### 1 9123-9, 90983-9 ####[facility] LABCLIA [id number] [address] [address] [place] Sodium [Moles/Vol] 132 mmol/L Low 136-144 [facility] Comment on above: Order Comment: Speci men Type: BLOOD SPECIMENOrdering Facility: [facility] Address: [address] [place] [address] Performed By: #### 1 9123-9, 64361-9 ####[facility] LABIA [id number] [address] [address] [place] Urea nitrogen [Mass/Vol] 71 mg/dL High 9-24 [facility] Comment on above: Order Comment: Speci men Type: BLOOD SPECIMENOrdering Facility: [facility] Address: [address] [place] [address] Performed By: #### 1 9123-9, 88220-6 ####[facility] LABIA [id number] [address] [address] [place] Magnesium SerPl-mCncon 11-25 Magnesium [Mass/Vol] 2.5 mg/dL High 1.7-2.3 [facility] Comment on above: Order Comment: Speci men Type: BLOOD SPECIMENOrdering Facility: [facility] Address: [address] [place] [address] Performed By: #### 1 9123-9, 2777-1, 48759-2 ####[facility] LABIA [id number] [place] [id number] [place] Magnesium [Mass/Vol] 2.6 mg/dL High 1.7-2.3 [facility] Comment on above: Order Comment: Speci men Type: BLOOD SPECIMENOrdering Facility: [facility] Address: [address] [place] [address] Performed By: #### 1 9123-9, 59065-9 ####[facility] LABIA [id number] [place] [id number] [place] Phosphate SerPl-mCncon 11-25 Phosphate [Mass/Vol] 9.4 mg/dL High 2.7-4.8 [facility] Comment on above: Order Comment: Speci men Type: BLOOD SPECIMENOrdering Facility: [facility] Address: [address] [place] [address] Performed By: #### 1 9123-9, 2777-1, 25605-1 ####[facility] [id number] [place] [id number] [place] XR CHEST 1V FRONTAL PORTon 0 11-25-2024 XR CHEST 1V FRONTAL PORT Normal [facility] APIXABAN ASSAYon 11-24-2024 APIXABAN 36.00 ng/mL Normal [facility] Comment on above: Order Comment: Speci men Type: BLOOD SPECIMENOrdering Facility: [facility] Address: [address] [place] [address] Result Comment: APIX ABAN PEAK AND TROUGH PLASMA CONCENTRATION RANGESIndication: Prevention of venous thromboembolism (VTE)Dose: 2.5 mg twice daily (BID)Peak: 41 to 146 ng/mLTrough: 23 to 109 ng/mLIndication: Prevention of Stroke and Systemic Embolism in non-valvular atrial fibrillationDose: 2.5 mg BIDPeak: 69 to 221 ng/mLTrough: 34 to 162 ng/mLDose: 5 mg BIDPeak: 91 to 321 ng/mLTrough: 41 to 230 ng/mLIndication: Treatment of VTE and Prevention of Recurrent VTEDose: 2.5 mg BIDPeak: 30 to 153 ng/mLTrough: 11 to 90 ng/mLDose: 5 mg BIDPeak: 59 to 302 ng/mLTrough: 22 to 177 ng/mLDose: 10 mg BIDPeak: 111 to 572 ng/mLTrough: 41 to 335 ng/mLReference: Sunday [facility] Pharmacocetrics Syst Pharmacol. 2017;6(5):340-349. Performed By: #### A PIXBN ####[facility] [id number] [place] [address] [place] ARTERIAL BLOOD GASESon 11-24 Base excess Calc (Bld) [Moles/Vol] 3 mmol/L High 0-2 [facility] Comment on above: Order Comment: Speci men Type: ARTERIAL BLOOD SPECIMENOrdering Facility: [facility] Address: [address] [place] [address] Performed By: #### A LLBG ####[facility] [id number] [address] [place] Body temperature 98.6 [degF] Normal [facility] Comment on above: Order Comment: Speci men Type: ARTERIAL BLOOD SPECIMENOrdering Facility: [facility] Address: [address] [place] [address] Performed By: #### A LLBG ####[facility] [id number] [address] [place] Calcium.ionized (Bld) [Mass/Vol] 1.11 mmol/L Normal 1.08-1.30 [facility] Comment on above: Order Comment: Speci men Type: ARTERIAL BLOOD SPECIMENOrdering Facility: [facility] Address: [address] [place] [address] Performed By: #### A LLBG ####[facility] [id number] [place] [id number] [place] Calcium.ionized adjusted to pH 7.4 (BldA) [Moles/Vol] 1.11 mmol/L Normal 1.08-1.30 [facility] Comment on above: Order Comment: Speci men Type: ARTERIAL BLOOD SPECIMENOrdering Facility: [facility] Address: [address] [place] [address] Performed By: #### A LLBG ####[facility] LABCLIA [id number] [place] [address] [place] Carboxyhemoglobin (BldA) [Mass fraction] 1.2 % Normal 0.0-2.0 [facility] Comment on above: Order Comment: Speci men Type: ARTERIAL BLOOD SPECIMENOrdering Facility: [facility] Address: [address] [place] [address] Result Comment: Carb oxyhemoglobin Reference Range for Smokers: 2.0-8.0% Performed By: #### A LLBG ####[facility] LABIA [id number] [place] [address] [place] CO2 (Bld) [Partial pressure] 45 mm Hg Normal 36-46 [facility] Comment on above: Order Comment: Speci men Type: ARTERIAL BLOOD SPECIMENOrdering Facility: [facility] Address: [address] [place] [address] Performed By: #### A LLBG ####[facility] LABIA [id number] [place] [address] [place] Glucose [Mass/Vol] 182 mg/dL High 60-105 [facility] Comment on above: Order Comment: Speci men Type: ARTERIAL BLOOD SPECIMENOrdering Facility: [facility] Address: [address] [place] [address] Performed By: #### A LLBG ####[facility] LABIA [id number] [place] [address] [place] HCO3 (Bld) [Moles/Vol] 27 mmol/L High 22-26 [facility] Comment on above: Order Comment: Speci men Type: ARTERIAL BLOOD SPECIMENOrdering Facility: [facility] Address: [address] [place] [address] Performed By: #### A LLBG ####[facility] LABIA [id number] [place] [id number] [place] Hematocrit (Bld) [Volume fraction] 34.6 % Low 39.0-51.0 [facility] Comment on above: Order Comment: Speci men Type: ARTERIAL BLOOD SPECIMENOrdering Facility: [facility] Address: [address] [place] [address] Performed By: #### A LLBG ####[facility] LABIA [id number] [place] [address] [place] Hemoglobin (Bld) [Mass/Vol] 11.2 g/dL Low 13.0-17.0 [facility] Comment on above: Order Comment: Speci men Type: ARTERIAL BLOOD SPECIMENOrdering Facility: [facility] Address: [address] [place] [address] Performed By: #### A LLBG ####[facility] LABIA [id number] [place] [address] [place] Lactate [Moles/Vol] 1.1 mmol/L Normal 0.5-2.2 [facility] Comment on above: Order Comment: Speci men Type: ARTERIAL BLOOD SPECIMENOrdering Facility: [facility] Address: [address] [place] [address] Performed By: #### A LLBG ####[facility] LABIA [id number] [place] [address] [place] Methemoglobin (Bld) [Mass fraction] 1.3 % Normal 0.0-1.5 [facility] Comment on above: Order Comment: Speci men Type: ARTERIAL BLOOD SPECIMENOrdering Facility: [facility] Address: [address] [place] [address] Performed By: #### A LLBG ####[facility] LABCLIA [id number] [place] [address] [place] O2 THERAPY RA=Room Air Normal [facility] Comment on above: Order Comment: Speci men Type: ARTERIAL BLOOD SPECIMENOrdering Facility: [facility] Address: [address] [place] [address] Performed By: #### A LLBG ####[facility] LABCLIA [id number] [place] [id number] [place] Oxygen (Bld) [Partial pressure] 78 mm Hg Low 85-95 [facility] Comment on above: Order Comment: Speci men Type: ARTERIAL BLOOD SPECIMENOrdering Facility: [facility] Address: [address] [place] [address] Performed By: #### A LLBG ####[facility] LABCLIA [id number] [address] [place] Oxyhemoglobin (BldA) [Mass fraction] 92 % Low 95-98 [facility] Comment on above: Order Comment: Speci men Type: ARTERIAL BLOOD SPECIMENOrdering Facility: [facility] Address: [address] [place] [address] Performed By: #### A LLBG ####[facility] LABCLIA [id number] [place] [id number] [place] pH (Bld) 7.40 [pH] Normal 7.35-7.45 [facility] Comment on above: Order Comment: Speci men Type: ARTERIAL BLOOD SPECIMENOrdering Facility: [facility] Address: [address] [place], [place] [id number] Performed By: #### A LLBG ####[facility] LABCLIA [id number] [place] [id number] [place] PO2 / FIO2 RATIO 371 mmHg Normal >300 [facility] Comment on above: Order Comment: Speci men Type: ARTERIAL BLOOD SPECIMENOrdering Facility: [facility] Address: [address] [place] [address] Performed By: #### A LLBG ####[facility] LABCLIA [id number] [place] [address] [place] Potassium [Moles/Vol] 5.0 mmol/L Normal 3.5-5.0 [facility] Comment on above: Order Comment: Speci men Type: ARTERIAL BLOOD SPECIMENOrdering Facility: [facility] Address: [address] [place] [address] Performed By: #### A LLBG ####[facility] LABCLIA [id number] [place] [address] [place] Sodium [Moles/Vol] 132 mmol/L Low 136-144 [facility] Comment on above: Order Comment: Speci men Type: ARTERIAL BLOOD SPECIMENOrdering Facility: [facility] Address: [address] [place] [address] Performed By: #### A LLBG ####[facility] LABCLIA [id number] [place] [address] [place] Base excess Calc (Bld) [Moles/Vol] 5 mmol/L High 0-2 [facility] Comment on above: Order Comment: Speci men Type: ARTERIAL BLOOD SPECIMENOrdering Facility: [facility] Address: [address] [place] [address] Performed By: #### A LLBG ####[facility] LABCLIA [id number] [place] [id number] [place] Body temperature 98.24 [degF] Normal [facility] Comment on above: Order Comment: Speci men Type: ARTERIAL BLOOD SPECIMENOrdering Facility: [facility] Address: [address] [place] [address] Performed By: #### A LLBG ####[facility] LABCLIA [id number] [place] [address] [place] Calcium.ionized (Bld) [Mass/Vol] 1.13 mmol/L Normal 1.08-1.30 [facility] Comment on above: Order Comment: Speci men Type: ARTERIAL BLOOD SPECIMENOrdering Facility: [facility] Address: [address] [place] [address] Performed By: #### A LLBG ####[facility] LABCLIA [id number] [address] [place] Calcium.ionized adjusted to pH 7.4 (BldA) [Moles/Vol] 1.15 mmol/L Normal 1.08-1.30 [facility] Comment on above: Order Comment: Speci men Type: ARTERIAL BLOOD SPECIMENOrdering Facility: [facility] Address: [address] [place] [address] Performed By: #### A LLBG ####[facility] LABCLIA [id number] [address] [place] Carboxyhemoglobin (BldA) [Mass fraction] 0.6 % Normal 0.0-2.0 [facility] Comment on above: Order Comment: Speci men Type: ARTERIAL BLOOD SPECIMENOrdering Facility: [facility] Address: [address] [place] [address] Result Comment: Carb oxyhemoglobin Reference Range for Smokers: 2.0-8.0% Performed By: #### A LLBG ####[facility] LABCLIA [id number] [place] [address] [place] CO2 (Bld) [Partial pressure] 45 mm Hg Normal 36-46 [facility] Comment on above: Order Comment: Speci men Type: ARTERIAL BLOOD SPECIMENOrdering Facility: [facility] Address: [address] [place] [address] Performed By: #### A LLBG ####[facility] LABCLIA [id number] [place] [address] [place] CO2 adjusted to patient's actual temperature (Bld) [Partial pressure] 44 mmHg Normal 36-46 [facility] Comment on above: Order Comment: Speci men Type: ARTERIAL BLOOD SPECIMENOrdering Facility: [facility] Address: [address] [place] [address] Performed By: #### A LLBG ####[facility] LABCLIA [id number] [address] [place] [address] [place] Glucose [Mass/Vol] 73 mg/dL Normal 60-105 [facility] Comment on above: Order Comment: Speci men Type: ARTERIAL BLOOD SPECIMENOrdering Facility: [facility] Address: [address] [place] [address] Performed By: #### A LLBG ####[facility] LABCLIA [id number] [place] [id number] [place] HCO3 (Bld) [Moles/Vol] 29 mmol/L High 22-26 [facility] Comment on above: Order Comment: Speci men Type: ARTERIAL BLOOD SPECIMENOrdering Facility: [facility] Address: [address] [place] [address] Performed By: #### A LLBG ####[facility] LABCLIA [id number] [place] [address] [place] Hematocrit (Bld) [Volume fraction] 34.8 % Low 39.0-51.0 [facility] Comment on above: Order Comment: Speci men Type: ARTERIAL BLOOD SPECIMENOrdering Facility: [facility] Address: [address] [place] [address] Performed By: #### A LLBG ####[facility] LABCLIA [id number] [place] [id number] [place] Hemoglobin (Bld) [Mass/Vol] 11.3 g/dL Low 13.0-17.0 [facility] Comment on above: Order Comment: Speci men Type: ARTERIAL BLOOD SPECIMENOrdering Facility: [facility] Address: [address] [place] [address] Performed By: #### A LLBG ####[facility] LABCLIA [id number] [place] [id number] [place] Lactate [Moles/Vol] 0.9 mmol/L Normal 0.5-2.2 [facility] Comment on above: Order Comment: Speci men Type: ARTERIAL BLOOD SPECIMENOrdering Facility: [facility] Address: [address] [place] [address] Performed By: #### A LLBG ####[facility] LABCLIA [id number] [place] [address] [place] Methemoglobin (Bld) [Mass fraction] 0.5 % Normal 0.0-1.5 [facility] Comment on above: Order Comment: Speci men Type: ARTERIAL BLOOD SPECIMENOrdering Facility: [facility] Address: [address] [place] [address] Performed By: #### A LLBG ####[facility] LABCLIA [id number] [place] [address] [place] O2 THERAPY RA=Room Air Normal [facility] Comment on above: Order Comment: Speci men Type: ARTERIAL BLOOD SPECIMENOrdering Facility: [facility] Address: [address] [place] [address] Performed By: #### A LLBG ####[facility] LABCLIA [id number] [place] [id number] [place] Oxygen (Bld) [Partial pressure] 98 mm Hg High 85-95 [facility] Comment on above: Order Comment: Speci men Type: ARTERIAL BLOOD SPECIMENOrdering Facility: [facility] Address: [address] [place] [address] Performed By: #### A LLBG ####[facility] LABCLIA [id number] [address] [address] [place] Oxygen adjusted to patient's actual temperature (Bld) [Partial pressure] 97 mmHg High 85-95 [facility] Comment on above: Order Comment: Speci men Type: ARTERIAL BLOOD SPECIMENOrdering Facility: [facility] Address: [address] [place] [address] Performed By: #### A LLBG ####[facility] LABCLIA [id number] [address] [address] [place] Oxyhemoglobin (BldA) [Mass fraction] 95 % Normal 95-98 [facility] Comment on above: Order Comment: Speci men Type: ARTERIAL BLOOD SPECIMENOrdering Facility: [facility] Address: [address] [place] [address] Performed By: #### A LLBG ####[facility] LABCLIA [id number] [place] [id number] [place] pH (Bld) 7.43 [pH] Normal 7.35-7.45 [facility] Comment on above: Order Comment: Speci men Type: ARTERIAL BLOOD SPECIMENOrdering Facility: [facility] Address: [address] [place] [address] Performed By: #### A LLBG ####[facility] LABCLIA [id number] [place] [address] [place] pH adjusted to patient's actual temperature (Bld) 7.44 Normal 7.35-7.45 [facility] Comment on above: Order Comment: Speci men Type: ARTERIAL BLOOD SPECIMENOrdering Facility: [facility] Address: [address] [place] [address] Performed By: #### A LLBG ####[facility] LABCLIA [id number] [place] [id number] [place] PO2 / FIO2 RATIO 467 mmHg Normal >300 [facility] Comment on above: Order Comment: Speci men Type: ARTERIAL BLOOD SPECIMENOrdering Facility: [facility] Address: [address] [place], [place] [id number] Performed By: #### A LLBG ####[facility] LABCLIA [id number] [place] [address] [place] Potassium [Moles/Vol] 4.5 mmol/L Normal 3.5-5.0 [facility] Comment on above: Order Comment: Speci men Type: ARTERIAL BLOOD SPECIMENOrdering Facility: [facility] Address: [address] [place] [address] Performed By: #### A LLBG ####[facility] LABIA [id number] [place] [address] [place] Sodium [Moles/Vol] 135 mmol/L Low 136-144 [facility] Comment on above: Order Comment: Speci men Type: ARTERIAL BLOOD SPECIMENOrdering Facility: [facility] Address: [address] [place] [address] Performed By: #### A LLBG ####[facility] LABIA [id number] [place] [address] [place] Base excess Calc (Bld) [Moles/Vol] 4 mmol/L High 0-2 [facility] Comment on above: Order Comment: Speci men Type: ARTERIAL BLOOD SPECIMENOrdering Facility: [facility] Address: [address] [place] [address] Performed By: #### A LLBG ####[facility] LABIA [id number] [place] [address] [place] Body temperature 98.6 [degF] Normal [facility] Comment on above: Order Comment: Speci men Type: ARTERIAL BLOOD SPECIMENOrdering Facility: [facility] Address: [address] [place] [address] Performed By: #### A LLBG ####[facility] LABIA [id number] [place] [address] [place] Calcium.ionized (Bld) [Mass/Vol] 1.12 mmol/L Normal 1.08-1.30 [facility] Comment on above: Order Comment: Speci men Type: ARTERIAL BLOOD SPECIMENOrdering Facility: [facility] Address: [address] [place] [address] Performed By: #### A LLBG ####[facility] LABIA [id number] [place] [address] [place] Calcium.ionized adjusted to pH 7.4 (BldA) [Moles/Vol] 1.15 mmol/L Normal 1.08-1.30 [facility] Comment on above: Order Comment: Speci men Type: ARTERIAL BLOOD SPECIMENOrdering Facility: [facility] Address: [address] [place] [address] Performed By: #### A LLBG ####[facility] LABIA [id number] [place] [address] [place] Carboxyhemoglobin (BldA) [Mass fraction] 1.0 % Normal 0.0-2.0 [facility] Comment on above: Order Comment: Speci men Type: ARTERIAL BLOOD SPECIMENOrdering Facility: [facility] Address: [address] [place] [address] Result Comment: Carb oxyhemoglobin Reference Range for Smokers: 2.0-8.0% Performed By: #### A LLBG ####[facility] LABIA [id number] [place] [address] [place] CO2 (Bld) [Partial pressure] 43 mm Hg Normal 36-46 [facility] Comment on above: Order Comment: Speci men Type: ARTERIAL BLOOD SPECIMENOrdering Facility: [facility] Address: [address] [place] [address] Performed By: #### A LLBG ####[facility] LABIA [id number] [place] [address] [place] Glucose [Mass/Vol] 83 mg/dL Normal 60-105 [facility] Comment on above: Order Comment: Speci men Type: ARTERIAL BLOOD SPECIMENOrdering Facility: [facility] Address: [address] [place] [address] Performed By: #### A LLBG ####[facility] LABCLIA [id number] [place] [address] [place] HCO3 (Bld) [Moles/Vol] 29 mmol/L High 22-26 [facility] Comment on above: Order Comment: Speci men Type: ARTERIAL BLOOD SPECIMENOrdering Facility: [facility] Address: [address] [place] [address] Performed By: #### A LLBG ####[facility] LABCLIA [id number] [place] [address] [place] Hematocrit (Bld) [Volume fraction] 33.1 % Low 39.0-51.0 [facility] Comment on above: Order Comment: Speci men Type: ARTERIAL BLOOD SPECIMENOrdering Facility: [facility] Address: [address] [place] [address] Performed By: #### A LLBG ####[facility] LABCLIA [id number] [place] [address] [place] Hemoglobin (Bld) [Mass/Vol] 10.7 g/dL Low 13.0-17.0 [facility] Comment on above: Order Comment: Speci men Type: ARTERIAL BLOOD SPECIMENOrdering Facility: [facility] Address: [address] [place] [address] Performed By: #### A LLBG ####[facility] LABCLIA [id number] [place] [address] [place] Lactate [Moles/Vol] 0.8 mmol/L Normal 0.5-2.2 [facility] Comment on above: Order Comment: Speci men Type: ARTERIAL BLOOD SPECIMENOrdering Facility: [facility] Address: [address] [place] [address] Performed By: #### A LLBG ####[facility] LABCLIA [id number] [id number] [address] [place] Methemoglobin (Bld) [Mass fraction] 1.6 % High 0.0-1.5 [facility] Comment on above: Order Comment: Speci men Type: ARTERIAL BLOOD SPECIMENOrdering Facility: [facility] Address: [address] [place] [address] Performed By: #### A LLBG ####[facility] LABCLIA [id number] [place] [address] [place] O2 THERAPY RA=Room Air Normal [facility] Comment on above: Order Comment: Speci men Type: ARTERIAL BLOOD SPECIMENOrdering Facility: [facility] Address: [address] [place] [address] Performed By: #### A LLBG ####[facility] LABCLIA [id number] [place] [address] [place] Oxygen (Bld) [Partial pressure] 94 mm Hg Normal 85-95 [facility] Comment on above: Order Comment: Speci men Type: ARTERIAL BLOOD SPECIMENOrdering Facility: [facility] Address: [address] [place] [address] Performed By: #### A LLBG ####[facility] LABCLIA [id number] [place] [address] [place] Oxyhemoglobin (BldA) [Mass fraction] 94 % Low 95-98 [facility] Comment on above: Order Comment: Speci men Type: ARTERIAL BLOOD SPECIMENOrdering Facility: [facility] Address: [address] [place] [address] Performed By: #### A LLBG ####[facility] LABCLIA [id number] [place] [id number] [place] pH (Bld) 7.44 [pH] Normal 7.35-7.45 [facility] Comment on above: Order Comment: Speci men Type: ARTERIAL BLOOD SPECIMENOrdering Facility: [facility] Address: [address] [place] [address] Performed By: #### A LLBG ####[facility] LABCLIA [id number] [place] [id number] [place] PO2 / FIO2 RATIO 448 mmHg Normal >300 [facility] Comment on above: Order Comment: Speci men Type: ARTERIAL BLOOD SPECIMENOrdering Facility: [facility] Address: [address] [place] [address] Performed By: #### A LLBG ####[facility] LABCLIA [id number] [place] [address] [place] Potassium [Moles/Vol] 4.3 mmol/L Normal 3.5-5.0 [facility] Comment on above: Order Comment: Speci men Type: ARTERIAL BLOOD SPECIMENOrdering Facility: [facility] Address: [address] [place] [address] Performed By: #### A LLBG ####[facility] LABCLIA [id number] [place] [address] [place] Sodium [Moles/Vol] 134 mmol/L Low 136-144 [facility] Comment on above: Order Comment: Speci men Type: ARTERIAL BLOOD SPECIMENOrdering Facility: [facility] Address: [address] [place] [address] Performed By: #### A LLBG ####[facility] LABCLIA [id number] [place] [address] [place] Base excess Calc (Bld) [Moles/Vol] 5 mmol/L High 0-2 [facility] Comment on above: Order Comment: Speci men Type: ARTERIAL BLOOD SPECIMENOrdering Facility: [facility] Address: [address] [place] [address] Performed By: #### A LLBG ####[facility] LABCLIA [id number] [place] [id number] [place] Body temperature 98.6 [degF] Normal [facility] Comment on above: Order Comment: Speci men Type: ARTERIAL BLOOD SPECIMENOrdering Facility: [facility] Address: [address] [place] [address] Performed By: #### A LLBG ####[facility] [id number] [place] [address] [place] Calcium.ionized (Bld) [Mass/Vol] 1.15 mmol/L Normal 1.08-1.30 [facility] Comment on above: Order Comment: Speci men Type: ARTERIAL BLOOD SPECIMENOrdering Facility: [facility] Address: [address] [place] [address] Performed By: #### A LLBG ####[facility] [id number] [place] [address] [place] Calcium.ionized adjusted to pH 7.4 (BldA) [Moles/Vol] 1.19 mmol/L Normal 1.08-1.30 [facility] Comment on above: Order Comment: Speci men Type: ARTERIAL BLOOD SPECIMENOrdering Facility: [facility] Address: [address] [place] [address] Performed By: #### A LLBG ####[facility] [id number] [place] [address] [place] Carboxyhemoglobin (BldA) [Mass fraction] 0.2 % Normal 0.0-2.0 [facility] Comment on above: Order Comment: Speci men Type: ARTERIAL BLOOD SPECIMENOrdering Facility: [facility] Address: [address] [place] [address] Result Comment: Carb oxyhemoglobin Reference Range for Smokers: 2.0-8.0% Performed By: #### A LLBG ####[facility] [id number] [place] [address] [place] CO2 (Bld) [Partial pressure] 40 mm Hg Normal 36-46 [facility] Comment on above: Order Comment: Speci men Type: ARTERIAL BLOOD SPECIMENOrdering Facility: [facility] Address: [address] [place] [address] Performed By: #### A LLBG ####[facility] LABCLIA [id number] [place] [address] [place] Glucose [Mass/Vol] 121 mg/dL High 60-105 [facility] Comment on above: Order Comment: Speci men Type: ARTERIAL BLOOD SPECIMENOrdering Facility: [facility] Address: [address] [place] [address] Performed By: #### A LLBG ####[facility] LABCLIA [id number] [place] [address] [place] HCO3 (Bld) [Moles/Vol] 28 mmol/L High 22-26 [facility] Comment on above: Order Comment: Speci men Type: ARTERIAL BLOOD SPECIMENOrdering Facility: [facility] Address: [address] [place] [address] Performed By: #### A LLBG ####[facility] LABCLIA [id number] [place] [address] [place] Hematocrit (Bld) [Volume fraction] 33.3 % Low 39.0-51.0 [facility] Comment on above: Order Comment: Speci men Type: ARTERIAL BLOOD SPECIMENOrdering Facility: [facility] Address: [address] [place] [address] Performed By: #### A LLBG ####[facility] LABCLIA [id number] [place] [address] [place] Hemoglobin (Bld) [Mass/Vol] 10.8 g/dL Low 13.0-17.0 [facility] Comment on above: Order Comment: Speci men Type: ARTERIAL BLOOD SPECIMENOrdering Facility: [facility] Address: [address] [place] [address] Performed By: #### A LLBG ####[facility] LABCLIA [id number] [address] [id number] [address] [place] Lactate [Moles/Vol] 1.5 mmol/L Normal 0.5-2.2 [facility] Comment on above: Order Comment: Speci men Type: ARTERIAL BLOOD SPECIMENOrdering Facility: [facility] Address: [address] [place] [address] Performed By: #### A LLBG ####[facility] LABCLIA [id number] [place] [address] [place] Methemoglobin (Bld) [Mass fraction] 0.4 % Normal 0.0-1.5 [facility] Comment on above: Order Comment: Speci men Type: ARTERIAL BLOOD SPECIMENOrdering Facility: [facility] Address: [address] [place] [address] Performed By: #### A LLBG ####[facility] LABCLIA [id number] [address] STATES OF [facility] O2 THERAPY RA=Room Air Normal [facility] Comment on above: Order Comment: Speci men Type: ARTERIAL BLOOD SPECIMENOrdering Facility: [facility] Address: [address] [place] [address] Performed By: #### A LLBG ####[facility] LABCLIA [id number] [address] [place] Oxygen (Bld) [Partial pressure] 119 mm Hg High 85-95 [facility] Comment on above: Order Comment: Speci men Type: ARTERIAL BLOOD SPECIMENOrdering Facility: [facility] Address: [address] [place] [address] Performed By: #### A LLBG ####[facility] LABCLIA [id number] [place] [id number] [place] Oxyhemoglobin (BldA) [Mass fraction] 97 % Normal 95-98 [facility] Comment on above: Order Comment: Speci men Type: ARTERIAL BLOOD SPECIMENOrdering Facility: [facility] Address: [address] [place] [address] Performed By: #### A LLBG ####[facility] LABCLIA [id number] [address] [place] [address] [place] pH (Bld) 7.47 [pH] High 7.35-7.45 [facility] Comment on above: Order Comment: Speci men Type: ARTERIAL BLOOD SPECIMENOrdering Facility: [facility] Address: [address] [place] [address] Performed By: #### A LLBG ####[facility] LABCLIA [id number] [address] [place] [address] [place] PO2 / FIO2 RATIO 567 mmHg Normal >300 [facility] Comment on above: Order Comment: Speci men Type: ARTERIAL BLOOD SPECIMENOrdering Facility: [facility] Address: [address] [place] [address] Performed By: #### A LLBG ####[facility] LABCLIA [id number] [address] [address] [place] Potassium [Moles/Vol] 4.0 mmol/L Normal 3.5-5.0 [facility] Comment on above: Order Comment: Speci men Type: ARTERIAL BLOOD SPECIMENOrdering Facility: [facility] Address: [address] [place] [address] Performed By: #### A LLBG ####[facility] LABCLIA [id number] [place] [id number] [place] Sodium [Moles/Vol] 134 mmol/L Low 136-144 [facility] Comment on above: Order Comment: Speci men Type: ARTERIAL BLOOD SPECIMENOrdering Facility: [facility] Address: [address] [place] [address] Performed By: #### A LLBG ####[facility] LABCLIA [id number] [address] [address] [place] Basic Metabolic Profile (BMP )on 11-24-2024 BUN Normal 4-19 [facility] Comment on above: Result Comment: Canc elled via OM: MD Ordered Performed By: #### L 500.2500, L100.0100 ####[facility] [address] [place], [address] BUN/CRE Normal 10-20 [facility] Comment on above: Result Comment: Canc elled via OM: MD Ordered Performed By: #### L 500.2500, L100.0100 ####[facility] [address] [place], [address] Calcium Normal 7.6-11.0 [facility] Comment on above: Result Comment: Canc elled via OM: MD Ordered Performed By: #### L 500.2500, L100.0100 ####[facility] [address] [place], [address] CL Normal 98-108 [facility] Comment on above: Result Comment: Canc elled via OM: MD Ordered Performed By: #### L 500.2500, L100.0100 ####[facility] [address] [place], [address] CO2 Normal 21.0-32.0 [facility] Comment on above: Result Comment: Canc elled via OM: MD Ordered Performed By: #### L 500.2500, L100.0100 ####[facility] [address] [place], [address] CREAT,SERUM Normal 0.70-1.20 [facility] Comment on above: Result Comment: Canc elled via OM: MD Ordered Performed By: #### L 500.2500, L100.0100 ####[facility] [address] [place], [address] eGFR Normal >60 [facility] Comment on above: Result Comment: Canc elled via OM: MD Ordered Performed By: #### L 500.2500, L100.0100 ####[facility] [address] [place], [address] GAP Normal 5-15 [facility] Comment on above: Result Comment: Canc elled via OM: MD Ordered Performed By: #### L 500.2500, L100.0100 ####[facility] [address] [place], [address] GLU Normal 70-99 [facility] Comment on above: Result Comment: Canc elled via OM: MD Ordered Performed By: #### L 500.2500, L100.0100 ####[facility] [address] [place], [address] Potassium Normal 3.3-5.1 [facility] Comment on above: Result Comment: Canc elled via OM: MD Ordered Performed By: #### L 500.2500, L100.0100 ####[facility] [address] [place], [address] Basic Metabolic Profile (BMP) Normal 133-145 [facility] Comment on above: Result Comment: Canc elled via OM: MD Ordered Performed By: #### L 500.2500, L100.0100 ####[facility] [address] [place], [address] CBC W/Diff, Automatedon 07-0 5-2025 Absolute Neut Normal 2.0-7.7 [facility] Comment on above: Result Comment: Canc elled via OM: MD Ordered Performed By: #### L 500.2500, L100.0100 ####[facility] [address] [place], [address] HCT Normal 40-54 [facility] Comment on above: Result Comment: Canc elled via OM: MD Ordered Performed By: #### L 500.2500, L100.0100 ####[facility] [address] [place], [address] HGB Normal 13.0-16.5 [facility] Comment on above: Result Comment: Canc elled via OM: MD Ordered Performed By: #### L 500.2500, L100.0100 ####[facility] [address] [place], [address] MCH Normal 27.0-32.0 [facility] Comment on above: Result Comment: Canc elled via OM: MD Ordered Performed By: #### L 500.2500, L100.0100 ####[facility] [address] [place], [address] MCHC Normal 32-36 [facility] Comment on above: Result Comment: Canc elled via OM: MD Ordered Performed By: #### L 500.2500, L100.0100 ####[facility] [address] [place], [address] MCV Normal 80-94 [facility] Comment on above: Result Comment: Canc elled via OM: MD Ordered Performed By: #### L 500.2500, L100.0100 ####[facility] [address] [place], [address] NEUT% Normal 47-70 [facility] Comment on above: Result Comment: Canc elled via OM: MD Ordered Performed By: #### L 500.2500, L100.0100 ####[facility] [address] [place], [address] PLT Normal 150-450 [facility] Comment on above: Result Comment: Canc elled via OM: MD Ordered Performed By: #### L 500.2500, L100.0100 ####[facility] [address] [place], [address] RBC Normal 4.6-6.2 [facility] Comment on above: Result Comment: Canc elled via OM: MD Ordered Performed By: #### L 500.2500, L100.0100 ####[facility] [address] [place], [address] RDW CV Normal 11.6-14.6 [facility] Comment on above: Result Comment: Canc elled via OM: MD Ordered Performed By: #### L 500.2500, L100.0100 ####[facility] [address] [place], [address] RDW SD Normal 35.1-43.9 [facility] Comment on above: Result Comment: Canc elled via OM: MD Ordered Performed By: #### L 500.2500, L100.0100 ####[facility] [address] [place], [address] WBC Normal 4.4-11.0 [facility] Comment on above: Result Comment: Canc elled via OM: MD Ordered Performed By: #### L 500.2500, L100.0100 ####[facility] [address] [place], [address] CBC panel Auto (Bld)on 11-24 Erythrocyte distribution width (RBC) [Ratio] 15.7 % High 11.5-15.0 [facility] Comment on above: Order Comment: Speci men Type: BLOOD SPECIMENOrdering Facility: [facility] Address: [address] [place], [place] [address] Performed By: #### 5 8410-2 ####[facility] LABCLIA [id number] [place] [address] [place] Hematocrit (Bld) [Volume fraction] 32.8 % Low 39.0-51.0 [facility] Comment on above: Order Comment: Speci men Type: BLOOD SPECIMENOrdering Facility: [facility] Address: [address] [place] [address] Performed By: #### 5 8410-2 ####[facility] LABCLIA [id number] [address] [address] [place] Hemoglobin (Bld) [Mass/Vol] 10.8 g/dL Low 13.0-17.0 [facility] Comment on above: Order Comment: Speci men Type: BLOOD SPECIMENOrdering Facility: [facility] Address: [address] [place] [address] Performed By: #### 5 8410-2 ####[facility] LABIA [id number] [place] [address] [place] MCH (RBC) [Entitic mass] 28.5 pg Normal 26.0-34.0 [facility] Comment on above: Order Comment: Speci men Type: BLOOD SPECIMENOrdering Facility: [facility] Address: [address] [place] [address] Performed By: #### 5 8410-2 ####[facility] LABIA [id number] [place] [address] [place] MCHC (RBC) [Mass/Vol] 32.9 g/dL Normal 30.5-36.0 [facility] Comment on above: Order Comment: Speci men Type: BLOOD SPECIMENOrdering Facility: [facility] Address: [address] [place] [address] Performed By: #### 5 8410-2 ####[facility] LABIA [id number] [place] [address] [place] MCV (RBC) [Entitic vol] 86.5 fL Normal 80.0-100.0 [facility] Comment on above: Order Comment: Speci men Type: BLOOD SPECIMENOrdering Facility: [facility] Address: [address] [place] [address] Performed By: #### 5 8410-2 ####[facility] LABIA [id number] [place] [address] [place] Nucleated RBC (Bld) [#/Vol] 10*3/uL Normal <0.01 [facility] Comment on above: Order Comment: Speci men Type: BLOOD SPECIMENOrdering Facility: [facility] Address: [address] [place] [address] Performed By: #### 5 8410-2 ####[facility] LABCLIA [id number] [place] [id number] [place] Platelet mean volume (Bld) [Entitic vol] 11.5 fL Normal 9.0-12.7 [facility] Comment on above: Order Comment: Speci men Type: BLOOD SPECIMENOrdering Facility: [facility] Address: [address] [place] [address] Performed By: #### 5 8410-2 ####[facility] LABCLIA [id number] [place] [address] [place] Platelets (Bld) [#/Vol] 152 10*3/uL Normal 150-400 [facility] Comment on above: Order Comment: Speci men Type: BLOOD SPECIMENOrdering Facility: [facility] Address: [address] [place] [address] Performed By: #### 5 8410-2 ####[facility] LABCLIA [id number] [place] [address] [place] RBC (Bld) [#/Vol] 3.79 10*6/uL Low 4.20-6.00 [facility] Comment on above: Order Comment: Speci men Type: BLOOD SPECIMENOrdering Facility: [facility] Address: [address] [place] [address] Performed By: #### 5 8410-2 ####[facility] LABCLIA [id number] [place] [id number] [place] WBC (Bld) [#/Vol] 8.79 10*3/uL Normal 3.70-11.00 [facility] Comment on above: Order Comment: Speci men Type: BLOOD SPECIMENOrdering Facility: [facility] Address: [address] [place] [address] Performed By: #### 5 8410-2 ####[facility] LABCLIA [id number] [address] [place] [address] [place] Comprehensive metabolic 2000 panelon 11-24-2024 Albumin [Mass/Vol] 3.3 g/dL Low 3.9-4.9 [facility] Comment on above: Order Comment: Speci men Type: BLOOD SPECIMENOrdering Facility: [facility] Address: [address] [place] [address] Performed By: #### 1 9123-9, 30954-1, 2777-1 ####[facility] LABCLIA [id number] [place] [id number] [place] ALP [Catalytic activity/Vol] 64 U/L Normal 38-113 [facility] Comment on above: Order Comment: Speci men Type: BLOOD SPECIMENOrdering Facility: [facility] Address: [address] [place] [address] Performed By: #### 1 9123-9, 02172-4, 2777-1 ####[facility] LABCLIA [id number] [place] [address] [place] ALT [Catalytic activity/Vol] 35 U/L Normal 10-54 [facility] Comment on above: Order Comment: Speci men Type: BLOOD SPECIMENOrdering Facility: [facility] Address: [address] [place] [address] Performed By: #### 1 9123-9, 74723-3, 2777-1 ####[facility] LABCLIA [id number] [place] [id number] [place] Anion gap [Moles/Vol] 16 mmol/L High 8-15 [facility] Comment on above: Order Comment: Speci men Type: BLOOD SPECIMENOrdering Facility: [facility] Address: [address] [address] [place] [address] Performed By: #### 1 9123-9, 16414-5, 2777-1 ####[facility] LABCLIA [id number] [address] [address] [place] AST [Catalytic activity/Vol] 14 U/L Normal 14-40 [facility] Comment on above: Order Comment: Speci men Type: BLOOD SPECIMENOrdering Facility: [facility] Address: [address] [place] [address] Performed By: #### 1 9123-9, 73264-5, 2777-1 ####[facility] LABCLIA [id number] [place] [address] [place] Bilirubin [Mass/Vol] 0.2 mg/dL Normal 0.2-1.3 [facility] Comment on above: Order Comment: Speci men Type: BLOOD SPECIMENOrdering Facility: [facility] Address: [address] [place] [address] Performed By: #### 1 9123-9, 00019-5, 2777-1 ####[facility] LABCLIA [id number] [place] [address] [place] Calcium [Mass/Vol] 9.1 mg/dL Normal 8.5-10.2 [facility] Comment on above: Order Comment: Speci men Type: BLOOD SPECIMENOrdering Facility: [facility] Address: [address] [place] [address] Performed By: #### 1 9123-9, 79994-9, 2777-1 ####[facility] LABCLIA [id number] [place] [address] [place] Chloride [Moles/Vol] 93 mmol/L Low 98-107 [facility] Comment on above: Order Comment: Speci men Type: BLOOD SPECIMENOrdering Facility: [facility] Address: [address] [place] [address] Performed By: #### 1 9123-9, 35383-4, 2777-1 ####[facility] LABCLIA [id number] [place] [id number] [place] CO2 [Moles/Vol] 27 mmol/L Normal 22-30 [facility] Comment on above: Order Comment: Speci men Type: BLOOD SPECIMENOrdering Facility: [facility] Address: [address] [place] [address] Performed By: #### 1 9123-9, 09550-8, 2776-05 ####[facility] LABCLIA [id number] [place] [id number] [place] Creatinine [Mass/Vol] 4.46 mg/dL High 0.73-1.22 [facility] Comment on above: Order Comment: Speci men Type: BLOOD SPECIMENOrdering Facility: [facility] Address: [address] [place] [address] Performed By: #### 1 239, , 2776-05 ####[facility] LABCLIA [id number] [place] [address] [place] Creatinine and Glomerular filtration rate.predicted panel (S/P/Bld) 12 mL/min/1.73m??? Low >=60 [facility] Comment on above: Order Comment: Speci men Type: BLOOD SPECIMENOrdering Facility: [facility] Address: [address] [place] [address] Result Comment: Tessa mated Glomerular Filtration Rate [...] accurately reflect actual GFR. Performed By: #### 1 9123-9, 96620-5, 2776-05 ####[facility] LABCLIA [id number] [place] [id number] [place] Glucose [Mass/Vol] 118 mg/dL High 74-99 [facility] Comment on above: Order Comment: Speci men Type: BLOOD SPECIMENOrdering Facility: [facility] Address: [address] [place] [address] Result Comment: The [place] [employer] (ADA) provides guidance for cutoff values for fasting glucose and random glucose. The ADA defines fasting as no caloric intake for at least 8 hours. Fasting plasma glucose results between 100 to 125 mg/dL indicate increased risk for diabetes (prediabetes).Fasting plasma glucose results greater than or equal to 126 mg/dL meet the criteria for diagnosis of diabetes. In the absence of unequivocal hyperglycemia, results should be confirmed by repeat testing. In a patient with classic symptoms of hyperglycemia or hyperglycemic crisis, random plasma glucose results greater than or equal to 200 mg/dL meet the criteria for diagnosis of diabetes.Reference: Standards of Medical Care in Diabetes 2016, [place] [employer]. Diabetes Care. 2016.39(Suppl 1). Performed By: #### 1 9123-9, 96466-1, 2776-05 ####[facility] LABCLIA [id number] [place] [address] [place] Potassium [Moles/Vol] 4.2 mmol/L Normal 3.7-5.1 [facility] Comment on above: Order Comment: Speci men Type: BLOOD SPECIMENOrdering Facility: [facility] Address: [address] [id number] Performed By: #### 1 9123-9, 40874-0, 2776-05 ####[facility] LABIA [id number] [place] [id number] [place] Protein [Mass/Vol] 6.2 g/dL Low 6.3-8.0 [facility] Comment on above: Order Comment: Speci men Type: BLOOD SPECIMENOrdering Facility: [facility] Address: [address] [id number] Performed By: #### 1 9123-9, 66485-9, 2776-05 ####[facility] LABCLIA [id number] [address] [address] [place] Sodium [Moles/Vol] 136 mmol/L Normal 136-144 [facility] Comment on above: Order Comment: Speci men Type: BLOOD SPECIMENOrdering Facility: [facility] Address: [address] [place], [place] [address] Performed By: #### 1 9123-9, 57623-0, 2777-1 ####[facility] LABCLIA [id number] [address] [address] [place] Urea nitrogen [Mass/Vol] 49 mg/dL High 9-24 [facility] Comment on above: Order Comment: Speci men Type: BLOOD SPECIMENOrdering Facility: [facility] Address: [address] [place] [address] Performed By: #### 1 9123-9, 12949-0, 2777-1 ####[facility] LABIA [id number] [place] [id number] [place] Gas and Carbon monoxide pane l (BldV)on 11-24-2024 BASE DEFICIT, VENOUS Normal [facility] Comment on above: Order Comment: Speci men Type: VENOUS BLOOD SPECIMENOrdering Facility: [facility] Address: [address] [place] [address] Result Comment: Vj brown RN Canceled by Clinician Performed By: #### 2 4344-4 ####[facility] LABIA [id number] [place] [address] [place] Base excess Calc (BldV) [Moles/Vol] Normal 0-2 [facility] Comment on above: Order Comment: Speci men Type: VENOUS BLOOD SPECIMENOrdering Facility: [facility] Address: [address] [place], [place] [address] Result Comment: Vj brown RN Canceled by ClinicianCorrected result: Previously reported as 4 mmol/L on 11/24/2024 at 7:44 AM EDT. Performed By: #### 2 4344-4 ####[facility] LABCLIA [id number] [address] [address] [place] Calcium.ionized (Bld) [Mass/Vol] Normal 1.08-1.30 [facility] Comment on above: Order Comment: Speci men Type: VENOUS BLOOD SPECIMENOrdering Facility: [facility] Address: [address] [place] [address] Result Comment: Vj brown RN Canceled by ClinicianCorrected result: Previously reported as 1.14 mmol/L on 11/24/2024 at 7:44 AM EDT. Performed By: #### 2 4344-4 ####[facility] LABIA [id number] [place] [address] [place] Calcium.ionized adjusted to pH 7.4 (BldA) [Moles/Vol] Normal 1.08-1.30 [facility] Comment on above: Order Comment: Speci men Type: VENOUS BLOOD SPECIMENOrdering Facility: [facility] Address: [address] [place] [address] Result Comment: Vj brown RN Canceled by ClinicianCorrected result: Previously reported as 1.15 mmol/L on 11/24/2024 at 7:44 AM EDT. Performed By: #### 2 4344-4 ####[facility] LABIA [id number] [place] [address] [place] Carboxyhemoglobin (BldV) [Mass fraction] Normal 0.0-2.0 [facility] Comment on above: Order Comment: Speci men Type: VENOUS BLOOD SPECIMENOrdering Facility: [facility] Address: [address] [place] [address] Result Comment: Vj brown RN Canceled by ClinicianCorrected result: Previously reported as 1.2 % on 11/24/2024 at 7:44 AM EDT. Performed By: #### 2 4344-4 ####[facility] LABIA [id number] [place] [address] [place] CO2 (BldV) [Partial pressure] Normal 42-55 [facility] Comment on above: Order Comment: Speci men Type: VENOUS BLOOD SPECIMENOrdering Facility: [facility] Address: [address] [place] [address] Result Comment: Vj brown RN Canceled by ClinicianCorrected result: Previously reported as 46 mmHg on 11/24/2024 at 7:44 AM EDT. Performed By: #### 2 4344-4 ####[facility] LABCLIA [id number] [address] [address] [place] CO2 adjusted to patient's actual temperature (BldV) [Partial pressure] Normal 42-55 [facility] Comment on above: Order Comment: Speci men Type: VENOUS BLOOD SPECIMENOrdering Facility: [facility] Address: [address] [place] [address] Result Comment: Vj brown RN Canceled by ClinicianCorrected result: Previously reported as 46 mmHg on 11/24/2024 at 7:44 AM EDT. Performed By: #### 2 4344-4 ####[facility] LABIA [id number] [place] [address] [place] Glucose [Mass/Vol] Normal 60-105 [facility] Comment on above: Order Comment: Speci men Type: VENOUS BLOOD SPECIMENOrdering Facility: [facility] Address: [address] [place] [address] Result Comment: Vj brown RN Canceled by ClinicianCorrected result: Previously reported as 78 mg/dL on 11/24/2024 at 7:44 AM EDT. Performed By: #### 2 4344-4 ####[facility] LABIA [id number] [place] [id number] [place] HCO3 (Bld) [Moles/Vol] Normal 24-28 [facility] Comment on above: Order Comment: Speci men Type: VENOUS BLOOD SPECIMENOrdering Facility: [facility] Address: [address] [place] [address] Result Comment: Vj brown RN Canceled by ClinicianCorrected result: Previously reported as 29 mmol/L on 11/24/2024 at 7:44 AM EDT. Performed By: #### 2 4344-4 ####[facility] LABCLIA [id number] [address] Hematocrit (Bld) [Volume fraction] Normal 39.0-51.0 [facility] Comment on above: Order Comment: Speci men Type: VENOUS BLOOD SPECIMENOrdering Facility: [facility] Address: [address] [place] [address] Result Comment: Vj brown RN Canceled by ClinicianCorrected result: Previously reported as 34.7 % on 11/24/2024 at 7:44 AM EDT. Performed By: #### 2 4344-4 ####[facility] LABIA [id number] [address] Hemoglobin (Bld) [Mass/Vol] Normal 13.0-17.0 [facility] Comment on above: Order Comment: Speci men Type: VENOUS BLOOD SPECIMENOrdering Facility: [facility] Address: [address] [place] [address] Result Comment: Vj brown RN Canceled by ClinicianCorrected result: Previously reported as 11.2 g/dL on 11/24/2024 at 7:44 AM EDT. Performed By: #### 2 4344-4 ####[facility] LABIA [id number] [address] OF [facility] Lactate [Moles/Vol] Normal 0.5-2.2 [facility] Comment on above: Order Comment: Speci men Type: VENOUS BLOOD SPECIMENOrdering Facility: [facility] Address: [address] [place] [address] Result Comment: Vj brown RN Canceled by ClinicianCorrected result: Previously reported as 0.9 mmol/L on 11/24/2024 at 7:44 AM EDT. Performed By: #### 2 4344-4 ####[facility] LABIA [id number] [address] STATES OF [facility] Methemoglobin (Bld) [Mass fraction] Normal 0.0-1.5 [facility] Comment on above: Order Comment: Speci men Type: VENOUS BLOOD SPECIMENOrdering Facility: [facility] Address: [address] [place] [address] Result Comment: Vj brown RN Canceled by ClinicianCorrected result: Previously reported as 1.0 % on 11/24/2024 at 7:44 AM EDT. Performed By: #### 2 4344-4 ####[facility] LABCLIA [id number] [place] [address] [place] O2 THERAPY RA=Room Air Normal [facility] Comment on above: Order Comment: Speci men Type: VENOUS BLOOD SPECIMENOrdering Facility: [facility] Address: [address] [place] [address] Performed By: #### 2 4344-4 ####[facility] LABCLIA [id number] [address] [place] Oxygen (BldV) [Partial pressure] Normal 35-45 [facility] Comment on above: Order Comment: Speci men Type: VENOUS BLOOD SPECIMENOrdering Facility: [facility] Address: [address] [place] [address] Result Comment: Vj brwon RN Canceled by ClinicianCorrected result: Previously reported as 85 mmHg on 11/24/2024 at 7:44 AM EDT. Performed By: #### 2 4344-4 ####[facility] LABCLIA [id number] [place] [address] [place] Oxygen adjusted to patient's actual temperature (BldV) [Partial pressure] Normal 35-45 [facility] Comment on above: Order Comment: Speci men Type: VENOUS BLOOD SPECIMENOrdering Facility: [facility] Address: [address] [place] [address] Result Comment: Vj brown RN Canceled by ClinicianCorrected result: Previously reported as 84 mmHg on 11/24/2024 at 7:44 AM EDT. Performed By: #### 2 4344-4 ####[facility] LABCLIA [id number] [address] [address] [place] Oxygen saturation in Venous blood Normal 60-85 [facility] Comment on above: Order Comment: Speci men Type: VENOUS BLOOD SPECIMENOrdering Facility: [facility] Address: [address] [place] [address] Result Comment: Vj brown RN Canceled by ClinicianCorrected result: Previously reported as 96 % on 11/24/2024 at 7:44 AM EDT. Performed By: #### 2 4344-4 ####[facility] LABCLIA [id number] [address] [address] [place] Oxyhemoglobin (BldV) [Mass fraction] Normal 60-85 [facility] Comment on above: Order Comment: Speci men Type: VENOUS BLOOD SPECIMENOrdering Facility: [facility] Address: [address] [place] [address] Result Comment: Vj brown RN Canceled by ClinicianCorrected result: Previously reported as 94 % on 11/24/2024 at 7:44 AM EDT. Performed By: #### 2 4344-4 ####[facility] LABCLIA [id number] [address] [address] [place] pH (BldV) Normal 7.32-7.42 [facility] Comment on above: Order Comment: Speci men Type: VENOUS BLOOD SPECIMENOrdering Facility: [facility] Address: [address] [place] [address] Result Comment: Vj brown RN Canceled by ClinicianCorrected result: Previously reported as 7.42 on 11/24/2024 at 7:44 AM EDT. Performed By: #### 2 4344-4 ####[facility] LABCLIA [id number] [address] [place] [address] [place] pH adjusted to patient's actual temperature (BldV) Normal 7.32-7.42 [facility] Comment on above: Order Comment: Speci men Type: VENOUS BLOOD SPECIMENOrdering Facility: [facility] Address: [address] [place] [address] Result Comment: Vj brown RN Canceled by ClinicianCorrected result: Previously reported as 7.42 on 11/24/2024 at 7:44 AM EDT. Performed By: #### 2 4344-4 ####[facility] LABCLIA [id number] [place] [address] [place] Potassium [Moles/Vol] Normal 3.5-5.0 [facility] Comment on above: Order Comment: Speci men Type: VENOUS BLOOD SPECIMENOrdering Facility: [facility] Address: [address] [place] [address] Result Comment: Vj brown RN Canceled by ClinicianCorrected result: Previously reported as 4.4 mmol/L on 11/24/2024 at 7:44 AM EDT. Performed By: #### 2 4344-4 ####[facility] LABCLIA [id number] [place] [id number] [place] Sodium [Moles/Vol] Normal 136-144 [facility] Comment on above: Order Comment: Speci men Type: VENOUS BLOOD SPECIMENOrdering Facility: [facility] Address: [address] [place] [address] Result Comment: Vj brown RN Canceled by ClinicianCorrected result: Previously reported as 134 mmol/L on 11/24/2024 at 7:44 AM EDT. Performed By: #### 2 4344-4 ####[facility] LABIA [id number] [address] [address] [place] TEMPERATURE, BODY Normal [facility] Comment on above: Order Comment: Speci men Type: VENOUS BLOOD SPECIMENOrdering Facility: [facility] Address: [address] [place] [address] Result Comment: Vj brown RN Canceled by ClinicianCorrected result: Previously reported as 36.9 C on 11/24/2024 at 7:44 AM EDT. Performed By: #### 2 4344-4 ####[facility] LABCLIA [id number] [address] [address] [place] Magnesium SerPl-mCncon 11-24 Magnesium [Mass/Vol] 2.2 mg/dL Normal 1.7-2.3 [facility] Comment on above: Order Comment: Speci men Type: BLOOD SPECIMENOrdering Facility: [facility] Address: [address] [place] [address] Performed By: #### 1 9123-9, 06532-3, 2777-1 ####[facility] LABIA [id number] [place] [id number] [place] Phosphate SerPl-ncon 11-24 Phosphate [Mass/Vol] 6.3 mg/dL High 2.7-4.8 [facility] Comment on above: Order Comment: Speci men Type: BLOOD SPECIMENOrdering Facility: [facility] Address: [address] [place] [address] Performed By: #### 1 9123-9, 84730-8, 2777-1 ####[facility] LABIA [id number] [place] [id number] [place] THERAPY NTon 11-24-2024 THERAPY NT Normal [facility] aPTT PPPon 11-24-2024 aPTT Coag (PPP) [Time] 32.9 s High 23.0-32.4 [facility] Comment on above: Order Comment: Speci men Type: BLOOD SPECIMENOrdering Facility: [facility] Address: [address] [place] [address] Performed By: #### 1 4979-9 ####[facility] LABIA [id number] [place] [id number] [place] ARTERIAL BLOOD GASESon 11-23 Base excess Calc (Bld) [Moles/Vol] 7 mmol/L High 0-2 [facility] Comment on above: Order Comment: Speci men Type: ARTERIAL BLOOD SPECIMENOrdering Facility: [facility] Address: [address] [place] [address] Performed By: #### A LLBG ####[facility] LABCLIA [id number] [place] [address] [place] Body temperature 97.7 [degF] Normal [facility] Comment on above: Order Comment: Speci men Type: ARTERIAL BLOOD SPECIMENOrdering Facility: [facility] Address: [address] [place] [address] Performed By: #### A LLBG ####[facility] LABCLIA [id number] [place] [address] [place] Calcium.ionized (Bld) [Mass/Vol] 1.06 mmol/L Low 1.08-1.30 [facility] Comment on above: Order Comment: Speci men Type: ARTERIAL BLOOD SPECIMENOrdering Facility: [facility] Address: [address] [place] [address] Performed By: #### A LLBG ####[facility] LABIA [id number] [place] [address] [place] Calcium.ionized adjusted to pH 7.4 (BldA) [Moles/Vol] 1.11 mmol/L Normal 1.08-1.30 [facility] Comment on above: Order Comment: Speci men Type: ARTERIAL BLOOD SPECIMENOrdering Facility: [facility] Address: [address] [place] [address] Performed By: #### A LLBG ####[facility] LABCLIA [id number] [place] [id number] [place] Carboxyhemoglobin (BldA) [Mass fraction] 0.5 % Normal 0.0-2.0 [facility] Comment on above: Order Comment: Speci men Type: ARTERIAL BLOOD SPECIMENOrdering Facility: [facility] Address: [address] [place] [address] Result Comment: Carb oxyhemoglobin Reference Range for Smokers: 2.0-8.0% Performed By: #### A LLBG ####[facility] LABCLIA [id number] [place] [id number] [place] CO2 (Bld) [Partial pressure] 39 mm Hg Normal 36-46 [facility] Comment on above: Order Comment: Speci men Type: ARTERIAL BLOOD SPECIMENOrdering Facility: [facility] Address: [address] [place] [address] Performed By: #### A LLBG ####[facility] LABCLIA [id number] [place] [address] [place] CO2 adjusted to patient's actual temperature (Bld) [Partial pressure] 38 mmHg Normal 36-46 [facility] Comment on above: Order Comment: Speci men Type: ARTERIAL BLOOD SPECIMENOrdering Facility: [facility] Address: [address] [place] [address] Performed By: #### A LLBG ####[facility] LABCLIA [id number] [place] [address] [place] Glucose [Mass/Vol] 144 mg/dL High 60-105 [facility] Comment on above: Order Comment: Speci men Type: ARTERIAL BLOOD SPECIMENOrdering Facility: [facility] Address: [address] [place] [address] Performed By: #### A LLBG ####[facility] LABCLIA [id number] [place] [id number] [place] HCO3 (Bld) [Moles/Vol] 30 mmol/L High 22-26 [facility] Comment on above: Order Comment: Speci men Type: ARTERIAL BLOOD SPECIMENOrdering Facility: [facility] Address: [address] [place] [address] Performed By: #### A LLBG ####[facility] LABCLIA [id number] [place] [id number] [place] Hematocrit (Bld) [Volume fraction] 34.1 % Low 39.0-51.0 [facility] Comment on above: Order Comment: Speci men Type: ARTERIAL BLOOD SPECIMENOrdering Facility: [facility] Address: [address] [place] [address] Performed By: #### A LLBG ####[facility] LABCLIA [id number] [place] [address] [place] Hemoglobin (Bld) [Mass/Vol] 11.1 g/dL Low 13.0-17.0 [facility] Comment on above: Order Comment: Speci men Type: ARTERIAL BLOOD SPECIMENOrdering Facility: [facility] Address: [address] [place] [address] Performed By: #### A LLBG ####[facility] LABIA [id number] [place] [address] [place] Lactate [Moles/Vol] 1.5 mmol/L Normal 0.5-2.2 [facility] Comment on above: Order Comment: Speci men Type: ARTERIAL BLOOD SPECIMENOrdering Facility: [facility] Address: [address] [place] [address] Performed By: #### A LLBG ####[facility] LABIA [id number] [place] [address] [place] Methemoglobin (Bld) [Mass fraction] 1.2 % Normal 0.0-1.5 [facility] Comment on above: Order Comment: Speci men Type: ARTERIAL BLOOD SPECIMENOrdering Facility: [facility] Address: [address] [place] [address] Performed By: #### A LLBG ####[facility] LABIA [id number] [place] [id number] [place] O2 THERAPY RA=Room Air Normal [facility] Comment on above: Order Comment: Speci men Type: ARTERIAL BLOOD SPECIMENOrdering Facility: [facility] Address: [address] [id number] Performed By: #### A LLBG ####[facility] LABCLIA [id number] [address] [address] [place] Oxygen (Bld) [Partial pressure] 105 mm Hg High 85-95 [facility] Comment on above: Order Comment: Speci men Type: ARTERIAL BLOOD SPECIMENOrdering Facility: [facility] Address: [address] [place], [place] [address] Performed By: #### A LLBG ####[facility] LABCLIA [id number] [place] [id number] [place] Oxygen adjusted to patient's actual temperature (Bld) [Partial pressure] 102 mmHg High 85-95 [facility] Comment on above: Order Comment: Speci men Type: ARTERIAL BLOOD SPECIMENOrdering Facility: [facility] Address: [address] [place] [address] Performed By: #### A LLBG ####[facility] LABCLIA [id number] [place] [id number] [place] Oxyhemoglobin (BldA) [Mass fraction] 95 % Normal 95-98 [facility] Comment on above: Order Comment: Speci men Type: ARTERIAL BLOOD SPECIMENOrdering Facility: [facility] Address: [address] [place], [place] [address] Performed By: #### A LLBG ####[facility] LABCLIA [id number] [address] [address] [place] pH (Bld) 7.50 [pH] High 7.35-7.45 [facility] Comment on above: Order Comment: Speci men Type: ARTERIAL BLOOD SPECIMENOrdering Facility: [facility] Address: [address] [place], [place] [address] Performed By: #### A LLBG ####[facility] LABCLIA [id number] [address] [place] [address] [place] pH adjusted to patient's actual temperature (Bld) 7.51 High 7.35-7.45 [facility] Comment on above: Order Comment: Speci men Type: ARTERIAL BLOOD SPECIMENOrdering Facility: [facility] Address: [address] [place] [address] Performed By: #### A LLBG ####[facility] LABCLIA [id number] [place] [address] [place] PO2 / FIO2 RATIO 500 mmHg Normal >300 [facility] Comment on above: Order Comment: Speci men Type: ARTERIAL BLOOD SPECIMENOrdering Facility: [facility] Address: [address] [place] [address] Performed By: #### A LLBG ####[facility] LABCLIA [id number] [place] [address] [place] Potassium [Moles/Vol] 3.8 mmol/L Normal 3.5-5.0 [facility] Comment on above: Order Comment: Speci men Type: ARTERIAL BLOOD SPECIMENOrdering Facility: [facility] Address: [address] [place] [address] Performed By: #### A LLBG ####[facility] LABCLIA [id number] [place] [address] [place] Sodium [Moles/Vol] 133 mmol/L Low 136-144 [facility] Comment on above: Order Comment: Speci men Type: ARTERIAL BLOOD SPECIMENOrdering Facility: [facility] Address: [address] [place] [address] Performed By: #### A LLBG ####[facility] LABCLIA [id number] [place] [id number] [place] [facility]UN [facility] Urea nitrogen post dialysis [Mass/Vol] 34 mg/dL High 9-24 [facility] Comment on above: Order Comment: Speci men Type: BLOOD SPECIMENOrdering Facility: [facility] Address: [address] [id number] Performed By: #### 1 1064-3 ####[facility] LABCLIA [id number] [address] [address] [place] BUN pre dial SerPl-mCncon Urea nitrogen pre dialysis [Mass/Vol] 103 mg/dL High 9-24 [facility] Comment on above: Order Comment: Speci men Type: BLOOD SPECIMENOrdering Facility: [facility] Address: [address] [place] [address] Performed By: #### 1 1065-0, 3024-7, 3016-3 ####[facility] LABCLIA [id number] [address] [place] Basic Metabolic Profile (BMP )on 11-23-2024 BUN Normal 4-19 [facility] Comment on above: Result Comment: Canc elled via OM: MD Ordered Performed By: #### L 500.2500, L100.0100 ####[facility] [address] [place], [address] BUN/CRE Normal 10-20 [facility] Comment on above: Result Comment: Canc elled via OM: MD Ordered Performed By: #### L 500.2500, L100.0100 ####[facility] [address] [place], [address] Calcium Normal 7.6-11.0 [facility] Comment on above: Result Comment: Canc elled via OM: MD Ordered Performed By: #### L 500.2500, L100.0100 ####[facility] [address] [place], [address] CL Normal 98-108 [facility] Comment on above: Result Comment: Canc elled via OM: MD Ordered Performed By: #### L 500.2500, L100.0100 ####[facility] [address] [place], [address] CO2 Normal 21.0-32.0 [facility] Comment on above: Result Comment: Canc elled via OM: MD Ordered Performed By: #### L 500.2500, L100.0100 ####[facility] [address] [place], [address] CREAT,SERUM Normal 0.70-1.20 [facility] Comment on above: Result Comment: Canc elled via OM: MD Ordered Performed By: #### L 500.2500, L100.0100 ####[facility] [address] [place], [address] eGFR Normal >60 [facility] Comment on above: Result Comment: Canc elled via OM: MD Ordered Performed By: #### L 500.2500, L100.0100 ####[facility] [address] [place], [address] GAP Normal 5-15 [facility] Comment on above: Result Comment: Canc elled via OM: MD Ordered Performed By: #### L 500.2500, L100.0100 ####[facility] [address] [place], [address] GLU Normal 70-99 [facility] Comment on above: Result Comment: Canc elled via OM: MD Ordered Performed By: #### L 500.2500, L100.0100 ####[facility] [address] [place], [address] Potassium Normal 3.3-5.1 [facility] Comment on above: Result Comment: Canc elled via OM: MD Ordered Performed By: #### L 500.2500, L100.0100 ####[facility] [address] [place], [address] Basic Metabolic Profile (BMP) Normal 133-145 [facility] Comment on above: Result Comment: Canc elled via OM: MD Ordered Performed By: #### L 500.2500, L100.0100 ####[facility] [address] [place], [address] CBC W/Diff, Automatedon 07-0 Absolute Neut Normal 2.0-7.7 [facility] Comment on above: Result Comment: Canc elled via OM: MD Ordered Performed By: #### L 500.2500, L100.0100 ####[facility] [address] [place], [address] HCT Normal 40-54 [facility] Comment on above: Result Comment: Canc elled via OM: MD Ordered Performed By: #### L 500.2500, L100.0100 ####[facility] [address] [place], [address] HGB Normal 13.0-16.5 [facility] Comment on above: Result Comment: Canc elled via OM: MD Ordered Performed By: #### L 500.2500, L100.0100 ####[facility] [address] [place], [address] MCH Normal 27.0-32.0 [facility] Comment on above: Result Comment: Canc elled via OM: MD Ordered Performed By: #### L 500.2500, L100.0100 ####[facility] [address] [place], [address] MCHC Normal 32-36 [facility] Comment on above: Result Comment: Canc elled via OM: MD Ordered Performed By: #### L 500.2500, L100.0100 ####[facility] [address] [place], [address] MCV Normal 80-94 [facility] Comment on above: Result Comment: Canc elled via OM: MD Ordered Performed By: #### L 500.2500, L100.0100 ####[facility] [address] [place], [address] NEUT% Normal 47-70 [facility] Comment on above: Result Comment: Canc elled via OM: MD Ordered Performed By: #### L 500.2500, L100.0100 ####[facility] [address] [place], [address] PLT Normal 150-450 [facility] Comment on above: Result Comment: Canc elled via OM: MD Ordered Performed By: #### L 500.2500, L100.0100 ####[facility] [address] [place], [address] RBC Normal 4.6-6.2 [facility] Comment on above: Result Comment: Canc elled via OM: MD Ordered Performed By: #### L 500.2500, L100.0100 ####[facility] [address] [place], [address] RDW CV Normal 11.6-14.6 [facility] Comment on above: Result Comment: Canc elled via OM: MD Ordered Performed By: #### L 500.2500, L100.0100 ####[facility] [address] [place], [address] RDW SD Normal 35.1-43.9 [facility] Comment on above: Result Comment: Canc elled via OM: MD Ordered Performed By: #### L 500.2500, L100.0100 ####[facility] [address] [place], [address] WBC Normal 4.4-11.0 [facility] Comment on above: Result Comment: Canc elled via OM: MD Ordered Performed By: #### L 500.2500, L100.0100 ####[facility] [address] [place], [address] CBC panel Auto (Bld)on 11-23 Erythrocyte distribution width (RBC) [Ratio] 16.1 % High 11.5-15.0 [facility] Comment on above: Order Comment: Speci men Type: BLOOD SPECIMENOrdering Facility: [facility] Address: [address] [place] [address] Performed By: #### 5 5454-3, 03968-4 ####[facility] LABCLIA [id number] [place] [address] [place] Hematocrit (Bld) [Volume fraction] 33.7 % Low 39.0-51.0 [facility] Comment on above: Order Comment: Speci men Type: BLOOD SPECIMENOrdering Facility: [facility] Address: [address] [place] [address] Performed By: #### 5 5454-3, 55408-2 ####[facility] LABCLIA [id number] [place] [address] [place] Hemoglobin (Bld) [Mass/Vol] 10.6 g/dL Low 13.0-17.0 [facility] Comment on above: Order Comment: Speci men Type: BLOOD SPECIMENOrdering Facility: [facility] Address: [address] [place] [address] Performed By: #### 5 5454-3, 76944-3 ####[facility] LABCLIA [id number] [place] [address] [place] MCH (RBC) [Entitic mass] 28.0 pg Normal 26.0-34.0 [facility] Comment on above: Order Comment: Speci men Type: BLOOD SPECIMENOrdering Facility: [facility] Address: [address] [place] [address] Performed By: #### 5 5454-3, 13973-0 ####[facility] LABCLIA [id number] [place] [id number] [place] MCHC (RBC) [Mass/Vol] 31.5 g/dL Normal 30.5-36.0 [facility] Comment on above: Order Comment: Speci men Type: BLOOD SPECIMENOrdering Facility: [facility] Address: [address] [place] [address] Performed By: #### 5 5454-3, 89474-1 ####[facility] LABCLIA [id number] [place] [id number] [place] MCV (RBC) [Entitic vol] 88.9 fL Normal 80.0-100.0 [facility] Comment on above: Order Comment: Speci men Type: BLOOD SPECIMENOrdering Facility: [facility] Address: [address] [place] [address] Performed By: #### 5 5454-3, 50500-8 ####[facility] LABIA [id number] [place] [address] [place] Nucleated RBC (Bld) [#/Vol] 10*3/uL Normal <0.01 [facility] Comment on above: Order Comment: Speci men Type: BLOOD SPECIMENOrdering Facility: [facility] Address: [address] [place] [address] Performed By: #### 5 5454-3, 28563-5 ####[facility] LABIA [id number] [place] [address] [place] Platelet mean volume (Bld) [Entitic vol] 11.8 fL Normal 9.0-12.7 [facility] Comment on above: Order Comment: Speci men Type: BLOOD SPECIMENOrdering Facility: [facility] Address: [address] [place] [address] Performed By: #### 5 5454-3, 38305-0 ####[facility] LABCLIA [id number] [place] [id number] [place] Platelets (Bld) [#/Vol] 144 10*3/uL Low 150-400 [facility] Comment on above: Order Comment: Speci men Type: BLOOD SPECIMENOrdering Facility: [facility] Address: [address] [place] [address] Performed By: #### 5 5454-3, 02338-3 ####[facility] LABCLIA [id number] [place] [address] [place] RBC (Bld) [#/Vol] 3.79 10*6/uL Low 4.20-6.00 [facility] Comment on above: Order Comment: Speci men Type: BLOOD SPECIMENOrdering Facility: [facility] Address: [address] [place] [address] Performed By: #### 5 5454-3, 14855-4 ####[facility] LABCLIA [id number] [place] [address] [place] WBC (Bld) [#/Vol] 9.87 10*3/uL Normal 3.70-11.00 [facility] Comment on above: Order Comment: Speci men Type: BLOOD SPECIMENOrdering Facility: [facility] Address: [address] [place] [address] Performed By: #### 5 5454-3, 90011-6 ####[facility] LABCLIA [id number] [address] [place] CONFIRM BLOOD TYPEon 025 ABO A Normal [facility] Comment on above: Order Comment: Speci men Type: BLOOD SPECIMENOrdering Facility: [facility] Address: [address] [place] [address] Performed By: #### C ONABO ####[facility] BLOOD BANKCLIA [id number] [place] [address] [place] Rh Nom (Bld) Positive Normal [facility] Comment on above: Order Comment: Speci men Type: BLOOD SPECIMENOrdering Facility: [facility] Address: [address] [place] [address] Performed By: #### C ONABO ####[facility] BLOOD BANKIA [id number] [address] [address] [place] CONSULTon 11-23-2024 CONSULT Normal [facility] CONSULT Normal [facility] Comprehensive metabolic 2000 panelon 11-23-2024 Albumin [Mass/Vol] 3.7 g/dL Low 3.9-4.9 [facility] Comment on above: Order Comment: Speci men Type: BLOOD SPECIMENOrdering Facility: [facility] Address: [address] [place] [address] Performed By: #### 2 777-1, LIPNF, 2276-4, 16883-3, 26752-6, 09804-7 ####[facility] LABIA [id number] [place] [id number] [place] ALP [Catalytic activity/Vol] 68 U/L Normal 38-113 [facility] Comment on above: Order Comment: Speci men Type: BLOOD SPECIMENOrdering Facility: [facility] Address: [address] [place] [address] Performed By: #### 2 777-1, LIPNF, 2276-4, 84056-1, 32905-9, 83474-5 ####[facility] LABIA [id number] [address] [address] [place] ALT [Catalytic activity/Vol] 43 U/L Normal 10-54 [facility] Comment on above: Order Comment: Speci men Type: BLOOD SPECIMENOrdering Facility: [facility] Address: [address] [place], [place] [address] Performed By: #### 2 777-1, LIPNF, 2276-4, 35715-7, 77957-4, 68996-4 ####[facility] LABIA [id number] [address] [address] [place] Anion gap [Moles/Vol] 23 mmol/L High 8-15 [facility] Comment on above: Order Comment: Speci men Type: BLOOD SPECIMENOrdering Facility: [facility] Address: [address] [place] [address] Performed By: #### 2 777-1, LIPNF, 2275-4, 10710-3, 15330-3, 45969-6 ####[facility] LABCLIA [id number] [address] [place] [address] [place] AST [Catalytic activity/Vol] 17 U/L Normal 14-40 [facility] Comment on above: Order Comment: Speci men Type: BLOOD SPECIMENOrdering Facility: [facility] Address: [address] [place], [place] [address] Performed By: #### 2 777-1, LIPNF, 2275-4, 86970-9, 35242-7, 29618-8 ####[facility] LABCLIA [id number] [address] [place] [address] [place] Bilirubin [Mass/Vol] 0.2 mg/dL Normal 0.2-1.3 [facility] Comment on above: Order Comment: Speci men Type: BLOOD SPECIMENOrdering Facility: [facility] Address: [address] [place] [address] Performed By: #### 2 777-1, LIPNF, 2275-4, 24106-5, 00957-1, 83881-5 ####[facility] LABCLIA [id number] [address] [place] [address] [place] Calcium [Mass/Vol] 9.3 mg/dL Normal 8.5-10.2 [facility] Comment on above: Order Comment: Speci men Type: BLOOD SPECIMENOrdering Facility: [facility] Address: [address] [place], [place] [address] Performed By: #### 2 777-1, LIPNF, 6-4, 86233-6, 60556-5, 33131-2 ####[facility] LABCLIA [id number] [address] [place] [address] [place] Chloride [Moles/Vol] 86 mmol/L Low 98-107 [facility] Comment on above: Order Comment: Speci men Type: BLOOD SPECIMENOrdering Facility: [facility] Address: [address] [place] [address] Performed By: #### 2 777-1, LIPNF, 2276-4, 51535-5, 85395-7, 32990-5 ####[facility] LABIA [id number] [place] [id number] [place] CO2 [Moles/Vol] 21 mmol/L Low 22-30 [facility] Comment on above: Order Comment: Speci men Type: BLOOD SPECIMENOrdering Facility: [facility] Address: [address] [place] [address] Performed By: #### 2 777-1, LIPNF, 2276-4, 02026-8, 38671-4, 38095-4 ####[facility] LABIA [id number] [place] [id number] [place] Creatinine [Mass/Vol] 7.48 mg/dL High 0.73-1.22 [facility] Comment on above: Order Comment: Speci men Type: BLOOD SPECIMENOrdering Facility: [facility] Address: [address] [place] [address] Performed By: #### 2 777-1, LIPNF, 2276-4, 28177-9, 79843-7, 77380-0 ####[facility] [id number] [place] [id number] [place] Creatinine and Glomerular filtration rate.predicted panel (S/P/Bld) 7 mL/min/1.73m??? Low >=60 [facility] Comment on above: Order Comment: Speci men Type: BLOOD SPECIMENOrdering Facility: [facility] Address: [address] [place] [address] Result Comment: Tessa mated Glomerular Filtration Rate [...] reflect actual GFR. Performed By: #### 2 777-1, LIPNF, 2276-4, 60633-4, 67477-5, 92998-8 ####[facility] LABIA [id number] [address] [address] [place] Glucose [Mass/Vol] 215 mg/dL High 74-99 [facility] Comment on above: Order Comment: Speci men Type: BLOOD SPECIMENOrdering Facility: [facility] Address: [address] [place] [address] Result Comment: The [place] [employer] (ADA) provides guidance for cutoff values for fasting glucose and random glucose. The ADA defines fasting as no caloric intake for at least 8 hours. Fasting plasma glucose results between 100 to 125 mg/dL indicate increased risk for diabetes (prediabetes).Fasting plasma glucose results greater than or equal to 126 mg/dL meet the criteria for diagnosis of diabetes. In the absence of unequivocal hyperglycemia, results should be confirmed by repeat testing. In a patient with classic symptoms of hyperglycemia or hyperglycemic crisis, random plasma glucose results greater than or equal to 200 mg/dL meet the criteria for diagnosis of diabetes.Reference: Standards of Medical Care in Diabetes 2016, [place] [employer]. Diabetes Care. 2016.39(Suppl 1). Performed By: #### 2 777-1, LIPNF, 6-4, 77416-4, 32894-0, 39411-6 ####[facility] LABIA [id number] [address] [address] [place] Potassium [Moles/Vol] 5.4 mmol/L High 3.7-5.1 [facility] Comment on above: Order Comment: Speci men Type: BLOOD SPECIMENOrdering Facility: [facility] Address: [address] [place] [address] Performed By: #### 2 777-1, LIPNF, 6-4, 46538-1, 34769-8, 48740-2 ####[facility] LABIA [id number] [address] [address] [place] Protein [Mass/Vol] 6.9 g/dL Normal 6.3-8.0 [facility] Comment on above: Order Comment: Speci men Type: BLOOD SPECIMENOrdering Facility: [facility] Address: [address] [place] [address] Performed By: #### 2 777-1, LIPNF, 6-4, 86607-5, 83539-6, 82668-3 ####[facility] LABIA [id number] [place] [id number] [place] Sodium [Moles/Vol] 130 mmol/L Low 136-144 [facility] Comment on above: Order Comment: Speci men Type: BLOOD SPECIMENOrdering Facility: [facility] Address: [address] [place] [address] Performed By: #### 2 777-1, LIPNF, 6-4, 43180-8, 81848-5, 39958-4 ####[facility] LABIA [id number] [place] [id number] [place] Urea nitrogen [Mass/Vol] 100 mg/dL High 9-24 [facility] Comment on above: Order Comment: Speci men Type: BLOOD SPECIMENOrdering Facility: [facility] Address: [address] [place] [address] Performed By: #### 2 777-1, LIPNF, 6-4, 19540-3, 48109-2, 91635-4 ####[facility] LABIA [id number] [place] [id number] [place] ECG COMPLETEon 11-23-2024 ECG COMPLETE Normal [facility] ECHO LIMITEDon 11-23-2024 ECHO LIMITED Normal [facility] Ferritin SerPl-mCncon 2024 Ferritin [Mass/Vol] 1473.0 ng/mL High 30.3-565.7 [facility] Comment on above: Order Comment: Speci men Type: BLOOD SPECIMENOrdering Facility: [facility] Address: [address] [place] [address] Performed By: #### 2 777-1, LIPNF, 2276-4, 80886-4, 97169-7, 37292-2 ####[facility] LABCLIA [id number] [place] [address] [place] Gas and Carbon monoxide pane l (BldV)on 11-23-2024 BASE DEFICIT, VENOUS -1 mmol/L Normal -2-0 [facility] Comment on above: Order Comment: Speci men Type: VENOUS BLOOD SPECIMENOrdering Facility: [facility] Address: [address] [place] [address] Performed By: #### 2 4344-4 ####[facility] LABIA [id number] [place] [address] [place] Body temperature 98.6 [degF] Normal [facility] Comment on above: Order Comment: Speci men Type: VENOUS BLOOD SPECIMENOrdering Facility: [facility] Address: [address] [place] [address] Performed By: #### 2 4344-4 ####[facility] LABIA [id number] [place] [address] [place] Calcium.ionized (Bld) [Mass/Vol] 1.14 mmol/L Normal 1.08-1.30 [facility] Comment on above: Order Comment: Speci men Type: VENOUS BLOOD SPECIMENOrdering Facility: [facility] Address: [address] [place] [address] Performed By: #### 2 4344-4 ####[facility] LABCLIA [id number] [place] [address] [place] Calcium.ionized adjusted to pH 7.4 (BldA) [Moles/Vol] 1.07 mmol/L Low 1.08-1.30 [facility] Comment on above: Order Comment: Speci men Type: VENOUS BLOOD SPECIMENOrdering Facility: [facility] Address: [address] [place] [address] Performed By: #### 2 4344-4 ####[facility] LABCLIA [id number] [place] [address] [place] Carboxyhemoglobin (BldV) [Mass fraction] 0.8 % Normal 0.0-2.0 [facility] Comment on above: Order Comment: Speci men Type: VENOUS BLOOD SPECIMENOrdering Facility: [facility] Address: [address] [place] [address] Result Comment: Carb oxyhemoglobin Reference Range for Smokers: 2.0-8.0% Performed By: #### 2 4344-4 ####[facility] LABCLIA [id number] [place] [address] [place] CO2 (BldV) [Partial pressure] 56 mm[Hg] High 42-55 [facility] Comment on above: Order Comment: Speci men Type: VENOUS BLOOD SPECIMENOrdering Facility: [facility] Address: [address] [place] [address] Performed By: #### 2 4344-4 ####[facility] LABCLIA [id number] [place] [address] [place] Glucose [Mass/Vol] 228 mg/dL High 60-105 [facility] Comment on above: Order Comment: Speci men Type: VENOUS BLOOD SPECIMENOrdering Facility: [facility] Address: [address] [place] [address] Performed By: #### 2 4344-4 ####[facility] LABCLIA [id number] [place] [id number] [place] HCO3 (Bld) [Moles/Vol] 26 mmol/L Normal 24-28 [facility] Comment on above: Order Comment: Speci men Type: VENOUS BLOOD SPECIMENOrdering Facility: [facility] Address: [address] [place] [address] Performed By: #### 2 4344-4 ####[facility] LABIA [id number] [place] [address] [place] Hematocrit (Bld) [Volume fraction] 34.4 % Low 39.0-51.0 [facility] Comment on above: Order Comment: Speci men Type: VENOUS BLOOD SPECIMENOrdering Facility: [facility] Address: [address] [place] [address] Performed By: #### 2 4344-4 ####[facility] LABIA [id number] [place] [address] [place] Hemoglobin (Bld) [Mass/Vol] 11.2 g/dL Low 13.0-17.0 [facility] Comment on above: Order Comment: Speci men Type: VENOUS BLOOD SPECIMENOrdering Facility: [facility] Address: [address] [place] [address] Performed By: #### 2 4344-4 ####[facility] LABIA [id number] [place] [address] [place] Lactate [Moles/Vol] 0.9 mmol/L Normal 0.5-2.2 [facility] Comment on above: Order Comment: Speci men Type: VENOUS BLOOD SPECIMENOrdering Facility: [facility] Address: [address] [place] [address] Performed By: #### 2 4344-4 ####[facility] LABIA [id number] [place] [id number] [place] Methemoglobin (Bld) [Mass fraction] 1.2 % Normal 0.0-1.5 [facility] Comment on above: Order Comment: Speci men Type: VENOUS BLOOD SPECIMENOrdering Facility: [facility] Address: [address] [place], [place] [address] Performed By: #### 2 4344-4 ####[facility] LABCLIA [id number] [address] [place] [address] [place] O2 THERAPY RA=Room Air Normal [facility] Comment on above: Order Comment: Speci men Type: VENOUS BLOOD SPECIMENOrdering Facility: [facility] Address: [address] [place], [place] [address] Performed By: #### 2 4344-4 ####[facility] LABCLIA [id number] [address] [address] [place] Oxygen (BldV) [Partial pressure] 24 mm[Hg] Low 35-45 [facility] Comment on above: Order Comment: Speci men Type: VENOUS BLOOD SPECIMENOrdering Facility: [facility] Address: [address] [place], [place] [address] Performed By: #### 2 4344-4 ####[facility] LABIA [id number] [place] [id number] [place] Oxygen saturation in Venous blood 28 % Low 60-85 [facility] Comment on above: Order Comment: Speci men Type: VENOUS BLOOD SPECIMENOrdering Facility: [facility] Address: [address] [place], [place] [address] Performed By: #### 2 4344-4 ####[facility] LABCLIA [id number] [address] [address] [place] Oxyhemoglobin (BldV) [Mass fraction] 27 % Low 60-85 [facility] Comment on above: Order Comment: Speci men Type: VENOUS BLOOD SPECIMENOrdering Facility: [facility] Address: [address] [place] [address] Performed By: #### 2 4344-4 ####[facility] LABCLIA [id number] [address] [address] [place] pH (BldV) 7.29 [pH] Low 7.32-7.42 [facility] Comment on above: Order Comment: Speci men Type: VENOUS BLOOD SPECIMENOrdering Facility: [facility] Address: [address] [place] [address] Performed By: #### 2 4344-4 ####[facility] LABIA [id number] [place] [address] [place] Potassium [Moles/Vol] 5.3 mmol/L High 3.5-5.0 [facility] Comment on above: Order Comment: Speci men Type: VENOUS BLOOD SPECIMENOrdering Facility: [facility] Address: [address] [place] [address] Performed By: #### 2 4344-4 ####[facility] [id number] [place] [address] [place] Sodium [Moles/Vol] 128 mmol/L Low 136-144 [facility] Comment on above: Order Comment: Speci men Type: VENOUS BLOOD SPECIMENOrdering Facility: [facility] Address: [address] [place] [address] Performed By: #### 2 4344-4 ####[facility] [id number] [address] [place] HBV surface Ab Ql (S)on HBV surface Ab Qn (S) 104.84 mIU/mL Normal [facility] Comment on above: Order Comment: Speci men Type: BLOOD SPECIMENOrdering Facility: [facility] Address: [address] [place] [address] Result Comment: <8 m IU/mL: No serological evidence of immunity to Hepatitis B Virus.>/= 8 to <12 mIU/mL: No serological evidence of immunity to Hepatitis B Virus.>/= 12 mIU/mL: Consistent with serological evidence of immunity to Hepatitis B Virus. Performed By: #### 5 195-3, 88378-4 ####[facility] LABIA [id number] [place] [id number] [place] HBV surface Ab Ser Qlon HBV surface Ab Ql (S) Positive Normal [facility] Comment on above: Order Comment: Speci men Type: BLOOD SPECIMENOrdering Facility: [facility] Address: [address] [place] [address] Result Comment: Cons istent with serological evidence of immunity to Hepatitis B Virus. Performed By: #### 5 195-3, 92625-8 ####[facility] LABCLIA [id number] [place] [address] [place] HBV surface Ag Ser Qlon 07-0 HBV surface Ag Ql (S) Negative Normal Negative [facility] Comment on above: Order Comment: Speci men Type: BLOOD SPECIMENOrdering Facility: [facility] Address: [address] [place] [address] Performed By: #### 5 195-3, 22209-4 ####[facility] LABIA [id number] [place] [address] [place] HISTORY PHYSICALon HISTORY PHYSICAL Normal [facility] HbA1c (Bld)on 11-23-2024 Average glucose Estimated from glycated hemoglobin (Bld) [Mass/Vol] 154 mg/dL Normal [facility] Comment on above: Order Comment: Speci men Type: BLOOD SPECIMENOrdering Facility: [facility] Address: [address] [place] [address] Result Comment: eAG: (Estimated average glucose) is a calculated value from HgbA1c and is labor service representative of the average blood glucose level in the last 2-3 month period. Performed By: #### 5 5454-3, 11974-2 ####[facility] LABIA [id number] [place] [address] [place] HbA1c (Bld) [Mass fraction] 7.0 % High 4.3-5.6 [facility] Comment on above: Order Comment: Speci men Type: BLOOD SPECIMENOrdering Facility: [facility] Address: [address] [place] [address] Result Comment: Amer ican Diabetes Association guidelines indicate that patients with HgbA1c in the range 5.7-6.4% are at increased risk for development of diabetes, and intervention by lifestyle modification may be beneficial. HgbA1c greater or equal to 6.5% is considered diagnostic of diabetes. Performed By: #### 5 5454-3, 26697-4 ####[facility] LABCLIA [id number] [place] [id number] [place] Iron and Iron binding capaci ty panelon 11-23-2024 Iron [Mass/Vol] 105 ug/dL Normal 41-186 [facility] Comment on above: Order Comment: Speci men Type: BLOOD SPECIMENOrdering Facility: [facility] Address: [address] [place] [address] Performed By: #### 2 777-1, LIPNF, 2276-4, 18030-0, 57186-1, 59904-0 ####[facility] LABCLIA [id number] [address] [place] Iron binding capacity [Mass/Vol] 179 ug/dL Low 232-386 [facility] Comment on above: Order Comment: Speci men Type: BLOOD SPECIMENOrdering Facility: [facility] Address: [address] [place] [address] Performed By: #### 2 777-1, LIPNF, 2276-4, 49816-7, 30593-9, 95903-9 ####[facility] LABCLIA [id number] [place] [id number] [place] Iron/TIBC [Molar ratio] 58.7 % High 15.0-57.0 C [facility] Comment on above: Order Comment: Speci men Type: BLOOD SPECIMENOrdering Facility: [facility] Address: [address] [place] [address] Performed By: #### 2 777-1, LIPNF, 2276-4, 85746-1, 17922-4, 42930-3 ####[facility] LABCLIA [id number] [address] [place] [address] [place] LIPID PANEL, NONFASTINGon Cholesterol [Mass/Vol] 113 mg/dL Normal <200 [facility] Comment on above: Order Comment: Speci men Type: BLOOD SPECIMENOrdering Facility: [facility] Address: [address] [place] [address] Result Comment: <200 mg/dL, Desirable 200-239 mg/dL, Borderline high>239 mg/dL, High Performed By: #### 2 777-1, LIPNF, 2276-4, 48812-2, 97267-2, 04925-2 ####[facility] LABCLIA [id number] [address] [place] [address] [place] [facility] HDL CHOLESTEROL, NF 48 mg/dL Normal >39 [facility] Comment on above: Order Comment: Speci men Type: BLOOD SPECIMENOrdering Facility: [facility] Address: [address] [place] [address] Result Comment: 40-5 9 mg/dL, Acceptable>59 mg/dL, High: Negative risk factor for coronary heart disease<40 mg/dL, Low: Positive risk factor for coronary heart disease Performed By: #### 2 777-1, LIPNF, 2276-4, 35551-4, 23185-5, 99472-0 ####[facility] LABCLIA [id number] [address] [place] [address] [place] LDL CHOLESTEROL CALCULATED, NF 56 mg/dL Normal <100 [facility] Comment on above: Order Comment: Speci men Type: BLOOD SPECIMENOrdering Facility: [facility] Address: [address] [place] [address] Result Comment: <100 mg/dL, Optimal 100-129 mg/dL, Near optimal/above optimal 130-159 mg/dL, Borderline high 160-189 mg/dL, High>189 mg/dL, Very highSecondary prevention optimal LDL Cholesterol levels are recommended to be <70 mg/dLLDL cholesterol is calculated using the Nice-NIH equation. Performed By: #### 2 777-1, LIPNF, 6-4, 88335-2, 88340-8, 12619-8 ####[facility] LABCLIA [id number] [place] [id number] [place] LDL/HDL RATIO, NF 1.17 mg/dL Normal <2.54 [facility] Comment on above: Order Comment: Speci men Type: BLOOD SPECIMENOrdering Facility: [facility] Address: [address] [place] [address] Result Comment: Refe rence:1. National Cholesterol Education Program ATP III Guideline At-A-Glance Quick Desk Reference: National Heart, Lung, and Blood [place]. National Institutes of Health. 2001: NIH Publication No. 01-3305.2. An International Atherosclerosis Society position paper: global recommendations for the management of dyslipidemia: executive summary, Atherosclerosis. 2014: 232(2):410-413. Performed By: #### 2 777-1, LIPNF, 6-4, 63719-8, 85161-9, 18877-1 ####[facility] LABCLIA [id number] [place] [id number] [place] NON HDL CHOL, NF 65 mg/dL Normal <130 [facility] Comment on above: Order Comment: Speci men Type: BLOOD SPECIMENOrdering Facility: [facility] Address: [address] [place] [address] Result Comment: <130 mg/dL, Optimal 130-159 mg/dL, Near optimal/above optimal 160-189 mg/dL, Borderline high 190-219 mg/dL, High>219 mg/dL, Very highSecondary prevention optimal non HDL Cholesterol levels are recommended to be <100 mg/dL Performed By: #### 2 777-1, LIPNF, 2276-4, 65163-1, 15095-8, 53910-3 ####[facility] LABCLIA [id number] [address] [address] [place] T CHOL/HDL RATIO NF 2.35 mg/dL Normal <5.10 [facility] Comment on above: Order Comment: Speci men Type: BLOOD SPECIMENOrdering Facility: [facility] Address: [address] [place] [address] Performed By: #### 2 777-1, LIPNF, 2275-4, 22635-3, 69860-0, 30120-4 ####[facility] LABCLIA [id number] [address] [address] [place] TRIGLYCERIDES, NF 33 mg/dL Normal <150 [facility] Comment on above: Order Comment: Speci men Type: BLOOD SPECIMENOrdering Facility: [facility] Address: [address] [place] [address] Result Comment: <150 mg/dL, Normal 150-199 mg/dL, Borderline high 200-499 mg/dL, High>499 mg/dL, Very high Performed By: #### 2 777-1, LIPNF, 2275-4, 93984-8, , ####[facility] LABCLIA [id number] [place] [address] [place] VLDL CHOLESTEROL, NF 5 mg/dL Normal <30 [facility] Comment on above: Order Comment: Speci men Type: BLOOD SPECIMENOrdering Facility: [facility] Address: [address] [place] [address] Performed By: #### 2 777-1, LIPNF, 2275-, 59934-0, , ####[facility] LABCLIA [id number] [place] [id number] [place] Magnesium SerPl-mCncon 11-23 Magnesium [Mass/Vol] 2.7 mg/dL High 1.7-2.3 [facility] Comment on above: Order Comment: Speci men Type: BLOOD SPECIMENOrdering Facility: [facility] Address: [address] [place] [address] Performed By: #### 2 777-1, LIPNF, 2275-, 68862-6, 64717-5, 06055-4 ####[facility] LABCLIA [id number] [place] [id number] [place] PT panel Coag (PPP)on 2024 INR Coag (PPP) [Relative time] 1.2 {INR} Normal 0.9-1.3 [facility] Comment on above: Order Comment: Speci men Type: BLOOD SPECIMENOrdering Facility: [facility] Address: [address] [place] [address] Result Comment: Ching min K Antagonist (VKA) Therapeutic Range: INR 2 to 3 (Target INR of 2.5)Note: For patients treated with VKA drugs, such as warfarin, the [place] [employer] 2012 Guideline recommends a therapeutic INR range of 2 to 3 (target INR of 2.5). This recommendation includes high-risk patients with antiphospholipid syndrome with previous arterial or venous thromboembolism, current-generation mechanical or bioprosthetic aortic heart valve replacement.Note: Patients with mechanical aortic valve replacement and additional risk factors for thromboembolic events (atrial fibrillation, previous thromboembolism, LV dysfunction, hypercoagulable conditions) or an older generation mechanical AVR (i.e., ball in-Cage) or any mechanical MVR should have a INR therapeutic range of 2.5 to 3.5 (target INR of 3).Ana Laura ALEJANDRO, et al. Chest 2012, 141:7S-47SKarin RA, et al. [facility] 2017, 70: 252-289 Performed By: #### 3 4528-0, 00235-3 ####[facility] LABCLIA [id number] [address] [address] [place] PT Coag (PPP) [Time] 12.6 s Normal 9.7-13.0 [facility] Comment on above: Order Comment: Lesvia aleman Type: BLOOD SPECIMENOrdering Facility: [facility] Address: [address] [place] [address] Performed By: #### 3 4528-0, 00395-2 ####[facility] LABCLIA [id number] [place] [id number] [place] Phosphate SerPl-mCncon 11-23 Phosphate [Mass/Vol] 10.4 mg/dL High 2.7-4.8 [facility] Comment on above: Order Comment: Speci men Type: BLOOD SPECIMENOrdering Facility: [facility] Address: [address] [place] [address] Performed By: #### 2 777-1, LIPNF, 2276-4, 34163-5, 42798-1, 81197-5 ####[facility] LABCLIA [id number] [place] [address] [place] STAPHYLOCOCCUS AUREUS AND MR SA SCREEN, PCR, NASALon 11-23-2024 S. aureus and MRSA panel EZEKIEL+probe (Nose) Not detected Normal Not Detected [facility] Comment on above: Order Comment: Speci men Type: SWABOrdering Facility: [facility] Address: [address] [place] [address] Performed By: #### S APCR ####[facility] LABIA [id number] [place] [address] [place] T4 Free SerPl-mCncon 025 Free T4 [Mass/Vol] 1.0 ng/dL Normal 0.9-1.7 [facility] Comment on above: Order Comment: Speci men Type: BLOOD SPECIMENOrdering Facility: [facility] Address: [address] [place] [address] Performed By: #### 1 1065-0, 3024-7, 3016-3 ####[facility] LABIA [id number] [place] [address] [place] THERAPY NTon 11-23-2024 THERAPY NT Normal [facility] TSH SerPl-aCncon 11-23-2024 TSH Qn 1.490 m[IU]/L Normal 0.270-4.200 [facility] Comment on above: Order Comment: Speci men Type: BLOOD SPECIMENOrdering Facility: [facility] Address: [address] [place] [address] Performed By: #### 1 1065-0, 3024-7, 3016-3 ####[facility] LABCLIA [id number] [place] [address] [place] TYPE + SCREENon 11-23-2024 ABO A Normal [facility] Comment on above: Order Comment: Speci men Type: BLOOD SPECIMENOrdering Facility: [facility] Address: [address] [place] [address] Performed By: #### T SCR ####[facility] BANKCL[facility] [id number] [place] [address] [place] Rh Nom (Bld) Positive Normal [facility] Comment on above: Order Comment: Speci men Type: BLOOD SPECIMENOrdering Facility: [facility] Address: [address] [place] [address] Performed By: #### T SCR ####[facility]ANK[facility] [id number] [place] [address] [place] TYPE AND SCREEN EXPIRATION 11/26/2024 23:59 Normal [facility] Comment on above: Order Comment: Speci men Type: BLOOD SPECIMENOrdering Facility: [facility] Address: [address] [place] [address] Performed By: #### T SCR ####[facility]ANKCL[facility] [id number] [place] [address] [place] Urea nitrogen post dialysis [Mass/Vol]on 11-23-2024 UREA REDUCTION RATIO WITH BUNPR 67 % Normal [facility] Comment on above: Order Comment: Speci men Type: BLOOD SPECIMENOrdering Facility: [facility] Address: [address] [place] [address] Performed By: #### 1 1064-3 ####[facility] LABCLIA [id number] [place] [id number] [place] aPTT PPPon 11-23-2024 aPTT Coag (PPP) [Time] 33.5 s High 23.0-32.4 [facility] Comment on above: Order Comment: Speci men Type: BLOOD SPECIMENOrdering Facility: [facility] Address: [address] [place] [address] Performed By: #### 3 4528-0, 93011-9 ####[facility] LABCLIA [id number] [facility] [address] [place] 12 Lead EKGon 11-22-2024 12 Lead EKG Normal [facility] 12 Lead EKG Normal [facility] Absolute lymphocyte countOrd ered By: Lele Desai on 11-22-2024 Lymphocytes Auto (Unsp spec) [#/Vol] 1.93 10*3/uL 0.83-4.51 [facility] Activated partial thrombopla stin time (aPTT) in platelet poor plasma by coagulation aOrdered By: Lele Desai on 11-22-2024 aPTT Coag (PPP) [Time] 34.7 s 24.1-36.2 [facility] Anion gap in Serum or Plasma Ordered By: Lele Desai on 11-22-2024 Anion gap [Moles/Vol] 17 mmol/L High 5-15 [facility] Automated lymphocyte count a s percentage of total leukocytesOrdered By: Lele Desai on 11-22-2024 Lymphocytes/100 WBC Auto (Unsp spec) 19.3 % 19-41 [facility] BUN/creatinine ratioOrdered By: Lele Desai on 11-22-2024 Urea nitrogen/Creatinine [Mass ratio] 12.4 mg/mg 10-20 [facility] Basic Metabolic Profile (BMP )on 11-22-2024 BUN/CRE 12.4 RATIO Normal - [facility] Comment on above: Performed By: #### L 300.4310, L300.3900, L501.4021, L100.0100, L501.5200, L500.2500, L503.7505 ####[facility] [address] [place], [address] Calcium [Mass/Vol] 8.8 mg/dL Normal 7.6-11.0 [facility] Comment on above: Performed By: #### L 300.4310, L300.3900, L501.4021, L100.0100, L501.5200, L500.2500, L503.7505 ####[facility] [address] [place], [address] Chloride [Moles/Vol] 88 mmol/L Low 98-108 [facility] Comment on above: Performed By: #### L 300.4310, L300.3900, L501.4021, L100.0100, L501.5200, L500.2500, L503.7505 ####[facility] [address] [place], [address] CO2 [Moles/Vol] 25.3 mmol/L Normal 21.0-32.0 [facility] Comment on above: Performed By: #### L 300.4310, L300.3900, L501.4021, L100.0100, L501.5200, L500.2500, L503.7505 ####[facility] [address] [place], [address] Creatinine [Mass/Vol] 6.55 mg/dL High 0.70-1.20 [facility] Comment on above: Performed By: #### L 300.4310, L300.3900, L501.4021, L100.0100, L501.5200, L500.2500, L503.7505 ####[facility] [address] [place], [address] ECRCL 8.98 ml/min Invalid Interpretation Code 50-250 [facility] Comment on above: Performed By: #### L 300.4310, L300.3900, L501.4021, L100.0100, L501.5200, L500.2500, L503.7505 ####[facility] [address] [place], [address] GAP 17 High 5-15 [facility] Comment on above: Performed By: #### L 300.4310, L300.3900, L501.4021, L100.0100, L501.5200, L500.2500, L503.7505 ####[facility] [address] [place], [address] GFR/1.73 sq M.predicted among non-blacks MDRD (S/P/Bld) [Vol rate/Area] 8 mL/min/{1.73_m2} Low >60 [facility] Comment on above: Result Comment: mL/m in/1.73m2 CKD-EPI Creatinine Equation (2020) Performed By: #### L 300.4310, L300.3900, L501.4021, L100.0100, L501.5200, L500.2500, L503.7505 ####[facility] [address] [place], [address] Glucose [Mass/Vol] 249 mg/dL High 70-99 [facility] Comment on above: Performed By: #### L 300.4310, L300.3900, L501.4021, L100.0100, L501.5200, L500.2500, L503.7505 ####[facility] [address] [place], [address] Potassium [Moles/Vol] 5.2 mmol/L High 3.3-5.1 [facility] Comment on above: Performed By: #### L 300.4310, L300.3900, L501.4021, L100.0100, L501.5200, L500.2500, L503.7505 ####[facility] [address] [place], [address] Sodium [Moles/Vol] 130 mmol/L Low 133-145 [facility] Comment on above: Performed By: #### L 300.4310, L300.3900, L501.4021, L100.0100, L501.5200, L500.2500, L503.7505 ####[facility] [address] [place], [address] Urea nitrogen [Mass/Vol] 81 mg/dL High 4-19 [facility] Comment on above: Performed By: #### L 300.4310, L300.3900, L501.4021, L100.0100, L501.5200, L500.2500, L503.7505 ####[facility] [address] [place], [address] Basophil percentageOrdered B y: Lele Desai on 11-22-2024 Basophils/100 WBC (Bld) 0.5 % 0-1 [facility] CBC W/Diff, Automatedon Absolute Lymph 1.93 X10 3/uL Normal 0.83-4.51 [facility] Comment on above: Performed By: #### L 300.4310, L300.3900, L501.4021, L100.0100, L501.5200, L500.2500, L503.7505 ####[facility] [address] [place], [address] Absolute Neut 6.8 X10 3/uL Normal 2.0-7.7 [facility] Comment on above: Performed By: #### L 300.4310, L300.3900, L501.4021, L100.0100, L501.5200, L500.2500, L503.7505 ####[facility] [address] [place], [address] Basophils/100 WBC (Bld) 0.5 % Normal 0-1 [facility] Comment on above: Performed By: #### L 300.4310, L300.3900, L501.4021, L100.0100, L501.5200, L500.2500, L503.7505 ####[facility] [address] [place], [address] Eosinophils/100 WBC (Bld) 2.6 % Normal 0-5 [facility] Comment on above: Performed By: #### L 300.4310, L300.3900, L501.4021, L100.0100, L501.5200, L500.2500, L503.7505 ####[facility] [address] [place], [address] Erythrocyte distribution width (RBC) [Ratio] 16.4 % High 11.6-14.6 [facility] Comment on above: Performed By: #### L 300.4310, L300.3900, L501.4021, L100.0100, L501.5200, L500.2500, L503.7505 ####[facility] [address] [place], [address] Hematocrit (Bld) [Volume fraction] 34.9 % Low 40-54 [facility] Comment on above: Performed By: #### L 300.4310, L300.3900, L501.4021, L100.0100, L501.5200, L500.2500, L503.7505 ####[facility] [address] [place], [address] Hemoglobin (Bld) [Mass/Vol] 10.9 g/dL Low 13.0-16.5 [facility] Comment on above: Performed By: #### L 300.4310, L300.3900, L501.4021, L100.0100, L501.5200, L500.2500, L503.7505 ####[facility] [address] [place], [address] IG% 0.500 Normal 0.0-0.9 [facility] Comment on above: Result Comment: IG% - Immature Granulocytes (promyelocytes, myelocytes andmetamyelocytes) > 1% indicates that a LEFT SHIFT is Present. Performed By: #### L 300.4310, L300.3900, L501.4021, L100.0100, L501.5200, L500.2500, L503.7505 ####[facility] [address] [place], [address] Lymphocytes/100 WBC (Bld) 19.3 % Normal 19-41 [facility] Comment on above: Performed By: #### L 300.4310, L300.3900, L501.4021, L100.0100, L501.5200, L500.2500, L503.7505 ####[facility] [address] [place], [address] MCH (RBC) [Entitic mass] 28.2 pg Normal 27.0-32.0 [facility] Comment on above: Performed By: #### L 300.4310, L300.3900, L501.4021, L100.0100, L501.5200, L500.2500, L503.7505 ####[facility] [address] [place], [address] MCHC (RBC) [Mass/Vol] 31.2 g/dL Low 32-36 [facility] Comment on above: Performed By: #### L 300.4310, L300.3900, L501.4021, L100.0100, L501.5200, L500.2500, L503.7505 ####[facility] [address] [place], [address] MCV (RBC) [Entitic vol] 90.2 fL Normal 80-94 [facility] Comment on above: Performed By: #### L 300.4310, L300.3900, L501.4021, L100.0100, L501.5200, L500.2500, L503.7505 ####[facility] [address] [place], [address] Monocytes/100 WBC (Bld) 8.8 % Normal 0-10 [facility] Comment on above: Performed By: #### L 300.4310, L300.3900, L501.4021, L100.0100, L501.5200, L500.2500, L503.7505 ####[facility] [address] [place], [address] Neutrophils/100 WBC (Bld) 68.3 % Normal 47-70 [facility] Comment on above: Performed By: #### L 300.4310, L300.3900, L501.4021, L100.0100, L501.5200, L500.2500, L503.7505 ####[facility] [address] [place], [address] Nucleated RBC (Bld) [#/Vol] 0 10*3/uL Normal 0-5 [facility] Comment on above: Performed By: #### L 300.4310, L300.3900, L501.4021, L100.0100, L501.5200, L500.2500, L503.7505 ####[facility] [address] [place], [address] Platelet mean volume (Bld) [Entitic vol] 11.7 fL Normal 6.2-12.0 [facility] Comment on above: Performed By: #### L 300.4310, L300.3900, L501.4021, L100.0100, L501.5200, L500.2500, L503.7505 ####[facility] [address] [place], [address] Platelets (Bld) [#/Vol] 161 10*3/uL Normal 150-450 [facility] Comment on above: Performed By: #### L 300.4310, L300.3900, L501.4021, L100.0100, L501.5200, L500.2500, L503.7505 ####[facility] [address] [place], [address] RBC (Bld) [#/Vol] 3.87 10*6/uL Low 4.6-6.2 [facility] Comment on above: Performed By: #### L 300.4310, L300.3900, L501.4021, L100.0100, L501.5200, L500.2500, L503.7505 ####[facility] [address] [place], [address] RDW SD 53.6 fl High 35.1-43.9 [facility] Comment on above: Performed By: #### L 300.4310, L300.3900, L501.4021, L100.0100, L501.5200, L500.2500, L503.7505 ####[facility] [address] [place], [address] WBC (Bld) [#/Vol] 10.0 10*3/uL Normal 4.4-11.0 [facility] Comment on above: Performed By: #### L 300.4310, L300.3900, L501.4021, L100.0100, L501.5200, L500.2500, L503.7505 ####[facility] [address] [place], [address] Carbon dioxide, total [Moles /volume] in Central venous bloodOrdered By: Lele Desai on 11-22-2024 CO2 [Moles/Vol] 25.3 mmol/L 21.0-32.0 [facility] Chest 1 View (Portable)on Chest 1 View (Portable) Normal [facility] Chloride assayOrdered By: Sulaiman Desai on 11-22-2024 Chloride [Moles/Vol] 88 mmol/L Low 98-108 [facility] Emergency Department Summary on 07-03-2025 Emergency Department Summary Normal [facility] Eosinophil percentageOrdered By: Lele Desai on 11-22-2024 Eosinophils/100 WBC (Bld) 2.6 % 0-5 [facility] Erythrocyte distribution wid th ratioOrdered By: Lele Desai on 11-22-2024 Erythrocyte distribution width (RBC) [Ratio] 16.4 % High 11.6-14.6 [facility] Erythrocyte distribution wid th standard deviationOrdered By: Lele Desai on 11-22-2024 Erythrocyte distribution width (RBC) [Ratio] 53.6 fl High 35.1-43.9 [facility] Glomerular filtration rate ( GFR) estimation/1.73 sq m using serum, plasma, or whole bOrdered By: Lele Desai on 11-22-2024 GFR/1.73 sq M.predicted among non-blacks MDRD (S/P/Bld) [Vol rate/Area] 8 mL/min/{1.73_m2} Low >60 [facility] Hematocrit Auto (Bld) [Volum e fraction]Ordered By: Lele Desai on 11-22-2024 Hematocrit (Bld) [Volume fraction] 34.9 % Low 40-54 [facility] Hemoglobin measurementOrdere d By: Lele Desai on 11-22-2024 Hemoglobin (Bld) [Mass/Vol] 10.9 g/dL Low 13.0-16.5 [facility] Immature granulocytes/100 WB C Auto (Bld)Ordered By: Lele Desai on 11-22-2024 Immature granulocytes/100 WBC (Bld) 0.500 % 0.0-0.9 [facility] L499.0042on 11-22-2024 Trop T High Sen 127 ng/L Invalid Interpretation Code <=22 [facility] Comment on above: Result Comment: Crit ical Result(s) Called at: 11-22-24 11:39 TO TAO by:??TYLER MENDENHALL Results read back by same. Performed By: #### L 499.0042 ####[facility] [address] [place], [address] L499.0043on 11-22-2024 Trop T High Sen Normal <=22 [facility] Comment on above: Result Comment: Canc elled via OM: Ordered Performed By: #### L 499.0043 ####[facility] [address] [place], [address] L501.4021on 11-22-2024 Trop T High Sen 129 ng/L Invalid Interpretation Code <=22 [facility] Comment on above: Result Comment: Crit ical Result(s) Called at: 11/22/2024-10:17 by: Keily to Macey Steinberg.??Results read back by same. Performed By: #### L 300.4310, L300.3900, L501.4021, L100.0100, L501.5200, L500.2500, L503.7505 ####[facility] [address] [place], [address] L503.7505on 11-22-2024 Natriuretic peptide B (Bld) [Mass/Vol] 66084 pg/mL High <=1800 [facility] Comment on above: Result Comment: Hear t Failure Unlikely: < 300 pg/mLHeart Failure Likely< 50 Years: > 450 pg/mL50-75 Years: > 900 pg/mL>75 Years: > 1800 pg/mL Performed By: #### L 300.4310, L300.3900, L501.4021, L100.0100, L501.5200, L500.2500, L503.7505 ####[facility] [address] [place], [address] MCV (mean corpuscular volume ) determinationOrdered By: Lele Desai on 11-22-2024 MCV (RBC) [Entitic vol] 90.2 fL 80-94 [facility] Magnesiumon 11-22-2024 Magnesium [Mass/Vol] 2.6 mg/dL High 1.5-2.2 [facility] Comment on above: Performed By: #### L 300.4310, L300.3900, L501.4021, L100.0100, L501.5200, L500.2500, L503.7505 ####[facility] [address] [place], [place], [address] Magnesium measurement (mass/ volume)Ordered By: Lele Desai on 11-22-2024 Magnesium (Unsp spec) [Mass/Vol] 2.6 mg/dL High 1.5-2.2 [facility] Mean corpuscular hemoglobin (MCH) determinationOrdered By: Lele Desai on 11-22-2024 MCH (RBC) [Entitic mass] 28.2 pg 27.0-32.0 [facility] Monocyte percentageOrdered B y: Lele Desai on 11-22-2024 Monocytes/100 WBC (Bld) 8.8 % 0-10 [facility] Natriuretic peptide.B prohor angie N-Terminal [Mass/volume] in Serum or PlasmaOrdered By: Lele Desai on 11-22-2024 Natriuretic peptide.B prohormone N-Terminal [Mass/Vol] 09096 pg/mL High <1800 [facility] Neutrophil percentageOrdered By: Lele Desai on 11-22-2024 Neutrophils/100 WBC (Bld) 68.3 % 47-70 [facility] Partial Thromboplast Timeon 11-22-2024 aPTT Coag (Bld) [Time] 34.7 s Normal 24.1-36.2 [facility] Comment on above: Performed By: #### L 300.4310, L300.3900, L501.4021, L100.0100, L501.5200, L500.2500, L503.7505 ####[facility] [address] [place], [address] Platelet countOrdered By: Sulaiman Desai on 11-22-2024 Platelets (Bld) [#/Vol] 161 10*3/uL 150-450 [facility] Potassium measurement (mass/ volume)Ordered By: Lele Desai on 11-22-2024 Potassium (Unsp spec) [Mass/Vol] 5.2 mmol/L High 3.3-5.1 [facility] Prothrombin Time w/INRon INR Coag (PPP) [Relative time] 1.3 {INR} Normal [facility] Comment on above: Performed By: #### L 300.4310, L300.3900, L501.4021, L100.0100, L501.5200, L500.2500, L503.7505 ####[facility] [address] [place], [place], [address] PT Coag (PPP) [Time] 16.5 s High 11.7-14.9 [facility] Comment on above: Performed By: #### L 300.4310, L300.3900, L501.4021, L100.0100, L501.5200, L500.2500, L503.7505 ####[facility] [address] [place], [place], [id number] Prothrombin timeOrdered By: Lele Desai on 11-22-2024 PT Coag (PPP) [Time] 16.5 s High 11.7-14.9 [facility] RBC Auto (Bld) [#/Vol]Ordere d By: Lele Desai on 11-22-2024 RBC (Bld) [#/Vol] 3.87 10*6/uL Low 4.6-6.2 [facility] Serum creatinine measurement (mass/volume)Ordered By: Lele Desai on 11-22-2024 Creatinine [Mass/Vol] 6.55 mg/dL High 0.70-1.20 [facility] Serum glucose measurement (m ass/volume)Ordered By: Lele Desai on 11-22-2024 Glucose [Mass/Vol] 249 mg/dL High 70-99 [facility] Serum or plasma calcium lilli urement (mass/volume)Ordered By: Lele Desai on 11-22-2024 Calcium [Mass/Vol] 8.8 mg/dL 7.6-11.0 [facility] Serum or plasma urea nitroge n measurement (mass/volume)Ordered By: Lele Desai on 11-22-2024 Urea nitrogen [Mass/Vol] 81 mg/dL High 4-19 [facility] Sodium levelOrdered By: Lele Desai on 11-22-2024 Sodium [Moles/Vol] 130 mmol/L Low 133-145 [facility] Troponin T.cardiac [Mass/vol ume] in Serum or Plasma by High sensitivity methodOrdered By: Lele Desai on 11-22-2024 Troponin T.cardiac High sensitivity method [Mass/Vol] 127 ng/L High <22 [facility] Troponin T.cardiac High sensitivity method [Mass/Vol] 129 ng/L High <22 [facility] White blood cell (WBC) count Ordered By: Lele Desai on 11-22-2024 WBC (Bld) [#/Vol] 10.0 10*3/uL 4.4-11.0 [facility] Calculated very low density lipoprotein (VLDL) cholesterol measurementOrdered By: Nando Wiggins on 11-12-2024 Calculated very low density lipoprotein (VLDL) cholesterol measurement 5 mg/dL 5-40 [facility] LDL calc ser/plasOrdered By: Nando Wiggins on 11-12-2024 Cholesterol in LDL [Mass/Vol] 53 mg/dL [facility] Serum or plasma cholesterol in HDL measurement (mass/volume)Ordered By: Nando Wiggins on 11-12-2024 Cholesterol in HDL [Mass/Vol] 54 mg/dL >40 [facility] Serum or plasma cholesterol measurement (mass/volume)Ordered By: Nando Wiggins on 11-12-2024 Cholesterol [Mass/Vol] 112 mg/dL <201 [facility] Brain/Head without Contrasto n 11-08-2024 Brain/Head without Contrast Normal [facility] Emergency Department Summary on 11-08-2024 Emergency Department Summary Normal [facility] Foot min 3 Viewson 5 Foot min 3 Views Normal [facility] Absolute lymphocyte countOrd ered By: Nando Wiggins on 11-05-2024 Lymphocytes Auto (Unsp spec) [#/Vol] 1.94 10*3/uL 0.83-4.51 [facility] Anion gap in Serum or Plasma Ordered By: Nando Wiggins on 11-05-2024 Anion gap [Moles/Vol] 16 mmol/L High 5-15 [facility] Automated lymphocyte count a s percentage of total leukocytesOrdered By: Nando Wiggins on 11-05-2024 Lymphocytes/100 WBC Auto (Unsp spec) 25.6 % 19-41 [facility] BUN/creatinine ratioOrdered By: Nando Wiggins on 11-05-2024 Urea nitrogen/Creatinine [Mass ratio] 12.4 mg/mg 10-20 [facility] Basophil percentageOrdered B y: Nando Wiggins on 11-05-2024 Basophils/100 WBC (Bld) 0.7 % 0-1 [facility] Carbon dioxide, total [Moles /volume] in Central venous bloodOrdered By: Nando Wiggins on 11-05-2024 CO2 [Moles/Vol] 24.7 mmol/L 21.0-32.0 [facility] Chloride assayOrdered By: Kathie biancalilian Wiggins on 11-05-2024 Chloride [Moles/Vol] 90 mmol/L Low 98-108 [facility] Eosinophil percentageOrdered By: Nando Wiggins on 11-05-2024 Eosinophils/100 WBC (Bld) 3.8 % 0-5 [facility] Erythrocyte distribution wid th ratioOrdered By: Nando Wiggins on 11-05-2024 Erythrocyte distribution width (RBC) [Ratio] 16.2 % High 11.6-14.6 [facility] Erythrocyte distribution wid th standard deviationOrdered By: Debsaint louiswolf Wiggins on 11-05-2024 Erythrocyte distribution width (RBC) [Ratio] 52.6 fl High 35.1-43.9 [facility] Glomerular filtration rate ( GFR) estimation/1.73 sq m using serum, plasma, or whole bOrdered By: Nando Wiggins on 11-05-2024 GFR/1.73 sq M.predicted among non-blacks MDRD (S/P/Bld) [Vol rate/Area] 10 mL/min/{1.73_m2} Low >60 [facility] Hematocrit Auto (Bld) [Volum e fraction]Ordered By: Nando Wiggins on 11-05-2024 Hematocrit (Bld) [Volume fraction] 37.4 % Low 40-54 [facility] Hemoglobin measurementOrdere d By: Nando Wiggins on 11-05-2024 Hemoglobin (Bld) [Mass/Vol] 11.7 g/dL Low 13.0-16.5 [facility] Immature granulocytes/100 WB C Auto (Bld)Ordered By: Nando Wiggins on 11-05-2024 Immature granulocytes/100 WBC (Bld) 0.400 % 0.0-0.9 [facility] MCV (mean corpuscular volume ) determinationOrdered By: Nando Wiggins on 11-05-2024 MCV (RBC) [Entitic vol] 89.3 fL 80-94 [facility] Mean corpuscular hemoglobin (MCH) determinationOrdered By: Nando Wiggins on 11-05-2024 MCH (RBC) [Entitic mass] 27.9 pg 27.0-32.0 [facility] Monocyte percentageOrdered B y: Nando Wiggins on 11-05-2024 Monocytes/100 WBC (Bld) 12.3 % High 0-10 [facility] Neutrophil percentageOrdered By: Nando Wiggins on 11-05-2024 Neutrophils/100 WBC (Bld) 57.2 % 47-70 [facility] Platelet countOrdered By: Kathie biancalilian Wiggins on 11-05-2024 Platelets (Bld) [#/Vol] 188 10*3/uL 150-450 [facility] Potassium measurement (mass/ volume)Ordered By: Nando Wiggins on 11-05-2024 Potassium (Unsp spec) [Mass/Vol] 4.4 mmol/L 3.3-5.1 [facility] RBC Auto (Bld) [#/Vol]Ordere d By: Nando Wiggins on 11-05-2024 RBC (Bld) [#/Vol] 4.19 10*6/uL Low 4.6-6.2 [facility] Serum creatinine measurement (mass/volume)Ordered By: Nando Wiggins on 11-05-2024 Creatinine [Mass/Vol] 5.10 mg/dL High 0.70-1.20 [facility] Serum glucose measurement (m ass/volume)Ordered By: Nando Wiggins on 11-05-2024 Glucose [Mass/Vol] 81 mg/dL 70-99 [facility] Serum or plasma calcium lilli urement (mass/volume)Ordered By: Nando Wiggins on 11-05-2024 Calcium [Mass/Vol] 9.1 mg/dL 7.6-11.0 [facility] Serum or plasma urea nitroge n measurement (mass/volume)Ordered By: Nando Wiggins on 11-05-2024 Urea nitrogen [Mass/Vol] 63 mg/dL High 4-19 [facility] Sodium levelOrdered By: Deb quintana Rosalie on 11-05-2024 Sodium [Moles/Vol] 131 mmol/L Low 133-145 [facility] White blood cell (WBC) count Ordered By: Nando Wiggins on 11-05-2024 WBC (Bld) [#/Vol] 7.6 10*3/uL 4.4-11.0 [facility] Absolute lymphocyte countOrd ered By: Nando Wiggins on 10-29-2024 Lymphocytes Auto (Unsp spec) [#/Vol] 2.20 10*3/uL 0.83-4.51 [facility] Anion gap in Serum or Plasma Ordered By: Nando Wiggins on 10-29-2024 Anion gap [Moles/Vol] 16 mmol/L High 5-15 [facility] Automated lymphocyte count a s percentage of total leukocytesOrdered By: Nando Wiggins on 10-29-2024 Lymphocytes/100 WBC Auto (Unsp spec) 27.2 % 19-41 [facility] BUN/creatinine ratioOrdered By: Nando Wiggins on 10-29-2024 Urea nitrogen/Creatinine [Mass ratio] 9.4 mg/mg Low 10-20 [facility] Basophil percentageOrdered B y: Nando Wiggins on 10-29-2024 Basophils/100 WBC (Bld) 0.9 % 0-1 [facility] Carbon dioxide, total [Moles /volume] in Central venous bloodOrdered By: Nando Wiggins on 10-29-2024 CO2 [Moles/Vol] 25.6 mmol/L 21.0-32.0 [facility] Cardiology Visit Reporton Cardiology Visit Report Normal [facility] Chloride assayOrdered By: Kathie Wiggins on 10-29-2024 Chloride [Moles/Vol] 93 mmol/L Low 98-108 [facility] Eosinophil percentageOrdered By: Nando Wiggins on 10-29-2024 Eosinophils/100 WBC (Bld) 4.8 % 0-5 [facility] Erythrocyte distribution wid th ratioOrdered By: Nando Wiggins on 10-29-2024 Erythrocyte distribution width (RBC) [Ratio] 16.9 % High 11.6-14.6 [facility] Erythrocyte distribution wid th standard deviationOrdered By: Debsaint louiswolf Wiggins on 10-29-2024 Erythrocyte distribution width (RBC) [Ratio] 53.9 fl High 35.1-43.9 [facility] Glomerular filtration rate ( GFR) estimation/1.73 sq m using serum, plasma, or whole bOrdered By: Nando Wiggins on 10-29-2024 GFR/1.73 sq M.predicted among non-blacks MDRD (S/P/Bld) [Vol rate/Area] 9 mL/min/{1.73_m2} Low >60 [facility] Hematocrit Auto (Bld) [Volum e fraction]Ordered By: Nando Wiggins on 10-29-2024 Hematocrit (Bld) [Volume fraction] 37.8 % Low 40-54 [facility] Hemoglobin measurementOrdere d By: Nando Wiggins on 10-29-2024 Hemoglobin (Bld) [Mass/Vol] 11.6 g/dL Low 13.0-16.5 [facility] Immature granulocytes/100 WB C Auto (Bld)Ordered By: Nando Wiggins on 10-29-2024 Immature granulocytes/100 WBC (Bld) 0.200 % 0.0-0.9 [facility] MCV (mean corpuscular volume ) determinationOrdered By: Nando Wiggins on 10-29-2024 MCV (RBC) [Entitic vol] 89.2 fL 80-94 [facility] Mean corpuscular hemoglobin (MCH) determinationOrdered By: Kathiefili Wiggins on 10-29-2024 MCH (RBC) [Entitic mass] 27.4 pg 27.0-32.0 [facility] Monocyte percentageOrdered B y: Nando Meekcheko on 10-29-2024 Monocytes/100 WBC (Bld) 11.1 % High 0-10 [facility] Neutrophil percentageOrdered By: Nando Meeklakshmidesiree on 10-29-2024 Neutrophils/100 WBC (Bld) 55.8 % 47-70 [facility] Platelet countOrdered By: Kathie fili Meeklakshmidesiree on 10-29-2024 Platelets (Bld) [#/Vol] 219 10*3/uL 150-450 [facility] Potassium measurement (mass/ volume)Ordered By: Kathiebiancasrinathwolf Edenlakshmidesiree on 10-29-2024 Potassium (Unsp spec) [Mass/Vol] 4.4 mmol/L 3.3-5.1 [facility] RBC Auto (Bld) [#/Vol]Ordere d By: Nando Meekcheko on 10-29-2024 RBC (Bld) [#/Vol] 4.24 10*6/uL Low 4.6-6.2 [facility] Serum creatinine measurement (mass/volume)Ordered By: Kathiefili Wiggins on 10-29-2024 Creatinine [Mass/Vol] 5.65 mg/dL High 0.70-1.20 [facility] Serum glucose measurement (m ass/volume)Ordered By: Nando Wiggins on 10-29-2024 Glucose [Mass/Vol] 86 mg/dL 70-99 [facility] Serum or plasma calcium lilli urement (mass/volume)Ordered By: Nando Wiggins on 10-29-2024 Calcium [Mass/Vol] 9.5 mg/dL 7.6-11.0 [facility] Serum or plasma urea nitroge n measurement (mass/volume)Ordered By: Nando Wiggins on 10-29-2024 Urea nitrogen [Mass/Vol] 53 mg/dL High 4-19 [facility] Sodium levelOrdered By: Deb lilian Rosalie on 10-29-2024 Sodium [Moles/Vol] 135 mmol/L 133-145 [facility] White blood cell (WBC) count Ordered By: Nando Wiggins on 10-29-2024 WBC (Bld) [#/Vol] 8.1 10*3/uL 4.4-11.0 [facility] Absolute lymphocyte countOrd ered By: Nando Wiggins on 10-22-2024 Lymphocytes Auto (Unsp spec) [#/Vol] 1.76 10*3/uL 0.83-4.51 [facility] Anion gap in Serum or Plasma Ordered By: Nando Wiggins on 10-22-2024 Anion gap [Moles/Vol] 16 mmol/L High 5-15 [facility] Automated lymphocyte count a s percentage of total leukocytesOrdered By: Nando Wiggins on 10-22-2024 Lymphocytes/100 WBC Auto (Unsp spec) 19.8 % 19-41 [facility] BUN/creatinine ratioOrdered By: Nando Wiggins on 10-22-2024 Urea nitrogen/Creatinine [Mass ratio] 12.2 mg/mg 10-20 [facility] Basophil percentageOrdered B y: Nando Wiggins on 10-22-2024 Basophils/100 WBC (Bld) 0.6 % 0-1 [facility] Carbon dioxide, total [Moles /volume] in Central venous bloodOrdered By: Nando Wiggins on 10-22-2024 CO2 [Moles/Vol] 27.2 mmol/L 21.0-32.0 [facility] Chloride assayOrdered By: Kathie Wiggins on 10-22-2024 Chloride [Moles/Vol] 91 mmol/L Low 98-108 [facility] Eosinophil percentageOrdered By: Nando Wiggins on 10-22-2024 Eosinophils/100 WBC (Bld) 3.0 % 0-5 [facility] Erythrocyte distribution wid th ratioOrdered By: Nando Wiggins on 10-22-2024 Erythrocyte distribution width (RBC) [Ratio] 15.9 % High 11.6-14.6 [facility] Erythrocyte distribution wid th standard deviationOrdered By: Nando Wiggins on 10-22-2024 Erythrocyte distribution width (RBC) [Ratio] 53.1 fl High 35.1-43.9 [facility] Glomerular filtration rate ( GFR) estimation/1.73 sq m using serum, plasma, or whole bOrdered By: fili Wiggins on 10-22-2024 GFR/1.73 sq M.predicted among non-blacks MDRD (S/P/Bld) [Vol rate/Area] 12 mL/min/{1.73_m2} Low >60 [facility] Hematocrit Auto (Bld) [Volum e fraction][facility] on 10-22-2024 Hematocrit (Bld) [Volume fraction] 35.6 % Low 40-54 [facility] Hemoglobin measurementOrdere d By: fili Wiggins on 10-22-2024 Hemoglobin (Bld) [Mass/Vol] 10.7 g/dL Low 13.0-16.5 [facility] Immature granulocytes/100 WB C Auto (Bld)Ordered By: biancasaint louiswolf Wiggins on 10-22-2024 Immature granulocytes/100 WBC (Bld) 0.400 % 0.0-0.9 [facility] MCV (mean corpuscular volume ) determinationOrdered By: Nando Wiggins on 10-22-2024 MCV (RBC) [Entitic vol] 90.6 fL 80-94 [facility] Mean corpuscular hemoglobin (MCH) determinationOrdered By: [facility] on 10-22-2024 MCH (RBC) [Entitic mass] 27.2 pg 27.0-32.0 [facility] Monocyte percentageOrdered B y: Nando Wiggins on 10-22-2024 Monocytes/100 WBC (Bld) 10.1 % High 0-10 [facility] Neutrophil percentageOrdered By: [facility] Edendesiree on 10-22-2024 Neutrophils/100 WBC (Bld) 66.1 % 47-70 [facility] Platelet countOrdered By: [facility] Edend[facility] on 10-22-2024 Platelets (Bld) [#/Vol] 167 10*3/uL 150-450 [facility] Potassium measurement (mass/ volume)Ordered By: Nando Wiggins on 10-22-2024 Potassium (Unsp spec) [Mass/Vol] 4.1 mmol/L 3.3-5.1 [facility] RBC Auto (Bld) [#/Vol]Ordere d By: Nando Wiggins on 10-22-2024 RBC (Bld) [#/Vol] 3.93 10*6/uL Low 4.6-6.2 [facility] Serum creatinine measurement (mass/volume)Ordered By: Nando Wiggins on 10-22-2024 Creatinine [Mass/Vol] 4.58 mg/dL High 0.70-1.20 [facility] Serum glucose measurement (m ass/volume)Ordered By: Nando Wiggins on 10-22-2024 Glucose [Mass/Vol] 131 mg/dL High 70-99 [facility] Serum or plasma calcium lilli urement (mass/volume)Ordered By: Nando Wiggins on 10-22-2024 Calcium [Mass/Vol] 9.1 mg/dL 7.6-11.0 [facility] Serum or plasma urea nitroge n measurement (mass/volume)Ordered By: Nando Wiggins on 10-22-2024 Urea nitrogen [Mass/Vol] 56 mg/dL High 4-19 [facility] Sodium levelOrdered By: Deb Wiggins on 10-22-2024 Sodium [Moles/Vol] 134 mmol/L 133-145 [facility] White blood cell (WBC) count Ordered By: Nando Wiggins on 10-22-2024 WBC (Bld) [#/Vol] 8.9 10*3/uL 4.4-11.0 [facility] Surgery Visit Reporton 10-17 Surgery Visit Report Normal [facility] Absolute lymphocyte countOrd ered By: Nando Wiggins on 10-16-2024 Lymphocytes Auto (Unsp spec) [#/Vol] 1.40 10*3/uL 0.83-4.51 [facility] Anion gap in Serum or Plasma Ordered By: Nando Wiggins on 10-16-2024 Anion gap [Moles/Vol] 14 mmol/L 5-15 [facility] Automated lymphocyte count a s percentage of total leukocytesOrdered By: Nando Wiggins on 10-16-2024 Lymphocytes/100 WBC Auto (Unsp spec) 15.9 % Low 19-41 [facility] BUN/creatinine ratioOrdered By: Nando Wiggins on 10-16-2024 Urea nitrogen/Creatinine [Mass ratio] 13.8 mg/mg 10-20 [facility] Basophil percentageOrdered B y: Nando Wiggins on 10-16-2024 Basophils/100 WBC (Bld) 0.7 % 0-1 [facility] Carbon dioxide, total [Moles /volume] in Central venous bloodOrdered By: Nando Wiggins on 10-16-2024 CO2 [Moles/Vol] 27.7 mmol/L 21.0-32.0 [facility] Chloride assayOrdered By: Kathie Wiggins on 10-16-2024 Chloride [Moles/Vol] 93 mmol/L Low 98-108 [facility] Eosinophil percentageOrdered By: biancasaint louiswolf Wiggins on 10-16-2024 Eosinophils/100 WBC (Bld) 2.7 % 0-5 [facility] Erythrocyte distribution wid th ratioOrdered By: Nando Wiggins on 10-16-2024 Erythrocyte distribution width (RBC) [Ratio] 15.8 % High 11.6-14.6 [facility] Erythrocyte distribution wid th standard deviationOrdered By: Nando Wiggins on 10-16-2024 Erythrocyte distribution width (RBC) [Ratio] 52.2 fl High 35.1-43.9 [facility] Glomerular filtration rate ( GFR) estimation/1.73 sq m using serum, plasma, or whole bOrdered By: Nando Wiggins on 10-16-2024 GFR/1.73 sq M.predicted among non-blacks MDRD (S/P/Bld) [Vol rate/Area] 9 mL/min/{1.73_m2} Low >60 [facility] Hematocrit Auto (Bld) [Volum e fraction]Ordered By: Nando Wiggins on 10-16-2024 Hematocrit (Bld) [Volume fraction] 34.0 % Low 40-54 [facility] Hemoglobin measurementOrdere d By: Nando Wiggins on 10-16-2024 Hemoglobin (Bld) [Mass/Vol] 10.4 g/dL Low 13.0-16.5 [facility] Immature granulocytes/100 WB C Auto (Bld)Ordered By: Deblilian Meeklakshmidesiree on 10-16-2024 Immature granulocytes/100 WBC (Bld) 0.300 % 0.0-0.9 [facility] MCV (mean corpuscular volume ) determinationOrdered By: Kathiebiancasrinathwolf Edenlakshmidesiree on 10-16-2024 MCV (RBC) [Entitic vol] 90.2 fL 80-94 [facility] Mean corpuscular hemoglobin (MCH) determinationOrdered By: Kathiefili Edenlakshmidesiree on 10-16-2024 MCH (RBC) [Entitic mass] 27.6 pg 27.0-32.0 [facility] Monocyte percentageOrdered B y: Nando Meekcheko on 10-16-2024 Monocytes/100 WBC (Bld) 9.3 % 0-10 [facility] Neutrophil percentageOrdered By: fili Wiggins on 10-16-2024 Neutrophils/100 WBC (Bld) 71.1 % High 47-70 [facility] Platelet countOrdered By: Kathie fili Wiggins on 10-16-2024 Platelets (Bld) [#/Vol] 152 10*3/uL 150-450 [facility] Potassium measurement (mass/ volume)Ordered By: Kathiebiancasrinathwolf Edenlakshmidesiree on 10-16-2024 Potassium (Unsp spec) [Mass/Vol] 4.6 mmol/L 3.3-5.1 [facility] RBC Auto (Bld) [#/Vol]Ordere d By: Nando Wiggins on 10-16-2024 RBC (Bld) [#/Vol] 3.77 10*6/uL Low 4.6-6.2 [facility] Serum creatinine measurement (mass/volume)Ordered By: Kathiefili Edenlakshmidesiree on 10-16-2024 Creatinine [Mass/Vol] 5.65 mg/dL High 0.70-1.20 [facility] Serum glucose measurement (m ass/volume)Ordered By: Nando Wiggins on 10-16-2024 Glucose [Mass/Vol] 169 mg/dL High 70-99 [facility] Serum or plasma calcium lilli urement (mass/volume)Ordered By: Nando Wiggins on 10-16-2024 Calcium [Mass/Vol] 8.9 mg/dL 7.6-11.0 [facility] Serum or plasma urea nitroge n measurement (mass/volume)Ordered By: Nando Wiggins on 10-16-2024 Urea nitrogen [Mass/Vol] 78 mg/dL High 4-19 [facility] Sodium levelOrdered By: Deb rosetirsodesiree Wiggins on 10-16-2024 Sodium [Moles/Vol] 135 mmol/L 133-145 [facility] White blood cell (WBC) count Ordered By: Nando Wiggins on 10-16-2024 WBC (Bld) [#/Vol] 8.8 10*3/uL 4.4-11.0 [facility] Absolute lymphocyte countOrd ered By: Nando Wiggins on 10-08-2024 Lymphocytes Auto (Unsp spec) [#/Vol] 1.87 10*3/uL 0.83-4.51 [facility] Anion gap in Serum or Plasma Ordered By: Nando Wiggins on 10-08-2024 Anion gap [Moles/Vol] 13 mmol/L 5-15 [facility] Automated lymphocyte count a s percentage of total leukocytesOrdered By: Nando Wiggins on 10-08-2024 Lymphocytes/100 WBC Auto (Unsp spec) 27.5 % 19- [facility] BUN/creatinine ratioOrdered By: Nando Wiggins on 10-08-2024 Urea nitrogen/Creatinine [Mass ratio] 13.2 mg/mg 10-20 [facility] Basophil percentageOrdered B y: Nando Wiggins on 10-08-2024 Basophils/100 WBC (Bld) 1.0 % 0-1 [facility] Carbon dioxide, total [Moles /volume] in Central venous bloodOrdered By: Nando Wiggins on 10-08-2024 CO2 [Moles/Vol] 26.7 mmol/L 21.0-32.0 [facility] Chloride assayOrdered By: Kathie Wiggins on 10-08-2024 Chloride [Moles/Vol] 95 mmol/L Low 98-108 [facility] Eosinophil percentageOrdered By: Nando Wiggins on 10-08-2024 Eosinophils/100 WBC (Bld) 2.9 % 0-5 [facility] Erythrocyte distribution wid th ratioOrdered By: Nando Wiggins on 10-08-2024 Erythrocyte distribution width (RBC) [Ratio] 16.0 % High 11.6-14.6 [facility] Erythrocyte distribution wid th standard deviationOrdered By: Nando Wiggins on 10-08-2024 Erythrocyte distribution width (RBC) [Ratio] 54.2 fl High 35.1-43.9 [facility] Glomerular filtration rate ( GFR) estimation/1.73 sq m using serum, plasma, or whole bOrdered By: Nando Wiggins on 10-08-2024 GFR/1.73 sq M.predicted among non-blacks MDRD (S/P/Bld) [Vol rate/Area] 12 mL/min/{1.73_m2} Low >60 [facility] Hematocrit Auto (Bld) [Volum e fraction]Ordered By: Nando Wiggins on 10-08-2024 Hematocrit (Bld) [Volume fraction] 35.5 % Low 40-54 [facility] Hemoglobin measurementOrdere d By: Nando Wiggins on 10-08-2024 Hemoglobin (Bld) [Mass/Vol] 10.7 g/dL Low 13.0-16.5 [facility] Immature granulocytes/100 WB C Auto (Bld)Ordered By: Nando Wiggins 10-08-2024 Immature granulocytes/100 WBC (Bld) 0.400 % 0.0-0.9 [facility] MCV (mean corpuscular volume ) determinationOrdered By: Nando Wiggins 10-08-2024 MCV (RBC) [Entitic vol] 91.0 fL 80-94 [facility] Mean corpuscular hemoglobin (MCH) determinationOrdered By: Nando Wiggins on 10-08-2024 MCH (RBC) [Entitic mass] 27.4 pg 27.0-32.0 [facility] Monocyte percentageOrdered B y: Nando Wiggins on 10-08-2024 Monocytes/100 WBC (Bld) 8.2 % 0-10 [facility] Neutrophil percentageOrdered By: Nando Wiggins on 10-08-2024 Neutrophils/100 WBC (Bld) 60.0 % 47-70 [facility] Platelet countOrdered By: Kathie Wiggins on 10-08-2024 Platelets (Bld) [#/Vol] 164 10*3/uL 150-450 [facility] Potassium measurement (mass/ volume)Ordered By: Nando Meekcheko on 10-08-2024 Potassium (Unsp spec) [Mass/Vol] 4.1 mmol/L 3.3-5.1 [facility] RBC Auto (Bld) [#/Vol]Ordere d By: Nando Wiggins on 10-08-2024 RBC (Bld) [#/Vol] 3.90 10*6/uL Low 4.6-6.2 [facility] Serum creatinine measurement (mass/volume)Ordered By: Nando Wiggins on 10-08-2024 Creatinine [Mass/Vol] 4.42 mg/dL High 0.70-1.20 [facility] Serum glucose measurement (m ass/volume)Ordered By: Nando Meekcheko on 10-08-2024 Glucose [Mass/Vol] 177 mg/dL High 70-99 [facility] Serum or plasma calcium lilli urement (mass/volume)Ordered By: Nando Meekcheko on 10-08-2024 Calcium [Mass/Vol] 9.2 mg/dL 7.6-11.0 [facility] Serum or plasma urea nitroge n measurement (mass/volume)Ordered By: Nando Meekcheko on 10-08-2024 Urea nitrogen [Mass/Vol] 59 mg/dL High 4-19 [facility] Sodium levelOrdered By: Deb quintana Meeklakshmidesiree on 10-08-2024 Sodium [Moles/Vol] 135 mmol/L 133-145 [facility] White blood cell (WBC) count Ordered By: Nando Wiggins on 10-08-2024 WBC (Bld) [#/Vol] 6.8 10*3/uL 4.4-11.0 [facility] Surgery Visit Reporton 10-03 Surgery Visit Report Normal [facility] Absolute lymphocyte countOrd ered By: Nando Wiggins on 10-02-2024 Lymphocytes Auto (Unsp spec) [#/Vol] 1.76 10*3/uL 0.83-4.51 [facility] Anion gap in Serum or Plasma Ordered By: Nando Wiggins on 10-02-2024 Anion gap [Moles/Vol] 14 mmol/L 5-15 [facility] Automated lymphocyte count a s percentage of total leukocytesOrdered By: Nando Wiggins on 10-02-2024 Lymphocytes/100 WBC Auto (Unsp spec) 25.6 % 19-41 [facility] BUN/creatinine ratioOrdered By: Nando Wiggins on 10-02-2024 Urea nitrogen/Creatinine [Mass ratio] 17.4 mg/mg 10-20 [facility] Basophil percentageOrdered B y: Nando Wiggins on 10-02-2024 Basophils/100 WBC (Bld) 1.0 % 0-1 [facility] Carbon dioxide, total [Moles /volume] in Central venous bloodOrdered By: Nando Wiggins on 10-02-2024 CO2 [Moles/Vol] 26.5 mmol/L 21.0-32.0 [facility] Chloride assayOrdered By: Kathie Wiggins on 10-02-2024 Chloride [Moles/Vol] 90 mmol/L Low 98-108 [facility] Eosinophil percentageOrdered By: Nando Wiggins on 10-02-2024 Eosinophils/100 WBC (Bld) 2.5 % 0-5 [facility] Erythrocyte distribution wid th ratioOrdered By: Nando Wiggins on 10-02-2024 Erythrocyte distribution width (RBC) [Ratio] 16.2 % High 11.6-14.6 [facility] Erythrocyte distribution wid th standard deviationOrdered By: Nando Wiggins on 10-02-2024 Erythrocyte distribution width (RBC) [Ratio] 54.6 fl High 35.1-43.9 [facility] Glomerular filtration rate ( GFR) estimation/1.73 sq m using serum, plasma, or whole bOrdered By: Nando Wiggins on 10-02-2024 GFR/1.73 sq M.predicted among non-blacks MDRD (S/P/Bld) [Vol rate/Area] 10 mL/min/{1.73_m2} Low >60 [facility] Hematocrit Auto (Bld) [Volum e fraction]Ordered By: Nando Wiggins on 10-02-2024 Hematocrit (Bld) [Volume fraction] 35.1 % Low 40-54 [facility] Hemoglobin measurementOrdere d By: Nando Wiggins on 10-02-2024 Hemoglobin (Bld) [Mass/Vol] 10.5 g/dL Low 13.0-16.5 [facility] Immature granulocytes/100 WB C Auto (Bld)Ordered By: Nando Wiggins on 10-02-2024 Immature granulocytes/100 WBC (Bld) 0.300 % 0.0-0.9 [facility] MCV (mean corpuscular volume ) determinationOrdered By: Nando Wiggins on 10-02-2024 MCV (RBC) [Entitic vol] 91.4 fL 80-94 [facility] Mean corpuscular hemoglobin (MCH) determinationOrdered By: Nando Wiggins on 10-02-2024 MCH (RBC) [Entitic mass] 27.3 pg 27.0-32.0 [facility] Monocyte percentageOrdered B y: Nando Wiggins on 10-02-2024 Monocytes/100 WBC (Bld) 10.5 % High 0-10 [facility] Neutrophil percentageOrdered By: Nando Wiggins on 10-02-2024 Neutrophils/100 WBC (Bld) 60.1 % 47-70 [facility] Platelet countOrdered By: Kathie Wiggins on 10-02-2024 Platelets (Bld) [#/Vol] 158 10*3/uL 150-450 [facility] Potassium measurement (mass/ volume)Ordered By: Nando Wiggins on 10-02-2024 Potassium (Unsp spec) [Mass/Vol] 4.3 mmol/L 3.3-5.1 [facility] RBC Auto (Bld) [#/Vol]Ordere d By: Nando Wiggins on 10-02-2024 RBC (Bld) [#/Vol] 3.84 10*6/uL Low 4.6-6.2 [facility] Serum creatinine measurement (mass/volume)Ordered By: Nando Wiggins on 10-02-2024 Creatinine [Mass/Vol] 5.22 mg/dL High 0.70-1.20 [facility] Serum glucose measurement (m ass/volume)Ordered By: Nando Wiggins on 10-02-2024 Glucose [Mass/Vol] 346 mg/dL High 70-99 [facility] Serum or plasma calcium lilli urement (mass/volume)Ordered By: Nando Wiggins on 10-02-2024 Calcium [Mass/Vol] 9.0 mg/dL 7.6-11.0 [facility] Serum or plasma urea nitroge n measurement (mass/volume)Ordered By: Nando Wiggins on 10-02-2024 Urea nitrogen [Mass/Vol] 91 mg/dL High 4-19 [facility] Sodium levelOrdered By: Deb rosejeremie Rosalie on 10-02-2024 Sodium [Moles/Vol] 131 mmol/L Low 133-145 [facility] White blood cell (WBC) count Ordered By: Nando Wiggins on 10-02-2024 WBC (Bld) [#/Vol] 6.9 10*3/uL 4.4-11.0 [facility] Absolute lymphocyte countOrd ered By: Nando Wiggins on 09-24-2024 Lymphocytes Auto (Unsp spec) [#/Vol] 1.75 10*3/uL 0.83-4.51 [facility] Anion gap in Serum or Plasma Ordered By: Nando Wiggins on 09-24-2024 Anion gap [Moles/Vol] 14 mmol/L 5-15 [facility] Automated lymphocyte count a s percentage of total leukocytesOrdered By: Nando Wiggins on 09-24-2024 Lymphocytes/100 WBC Auto (Unsp spec) 25.8 % 19-41 [facility] BUN/creatinine ratioOrdered By: Nando Wiggins on 09-24-2024 Urea nitrogen/Creatinine [Mass ratio] 12.6 mg/mg 10-20 [facility] Basophil percentageOrdered B y: Nando Wiggins on 09-24-2024 Basophils/100 WBC (Bld) 0.7 % 0-1 [facility] Carbon dioxide, total [Moles /volume] in Central venous bloodOrdered By: Nando Wiggins on 09-24-2024 CO2 [Moles/Vol] 26.2 mmol/L 21.0-32.0 [facility] Chloride assayOrdered By: Kathie Wiggins on 09-24-2024 Chloride [Moles/Vol] 93 mmol/L Low 98-108 [facility] Eosinophil percentageOrdered By: Nando Wiggins on 09-24-2024 Eosinophils/100 WBC (Bld) 2.7 % 0-5 [facility] Erythrocyte distribution wid th ratioOrdered By: Nando Wiggins on 09-24-2024 Erythrocyte distribution width (RBC) [Ratio] 17.2 % High 11.6-14.6 [facility] Erythrocyte distribution wid th standard deviationOrdered By: Debsaint louiswolf Wiggins on 09-24-2024 Erythrocyte distribution width (RBC) [Ratio] 58.0 fl High 35.1-43.9 [facility] Glomerular filtration rate ( GFR) estimation/1.73 sq m using serum, plasma, or whole bOrdered By: Nando Wiggins on 09-24-2024 GFR/1.73 sq M.predicted among non-blacks MDRD (S/P/Bld) [Vol rate/Area] 13 mL/min/{1.73_m2} Low >60 [facility] Hematocrit Auto (Bld) [Volum e fraction]Ordered By: Nando Wiggins on 09-24-2024 Hematocrit (Bld) [Volume fraction] 34.6 % Low 40-54 [facility] Hemoglobin measurementOrdere d By: Debsrinathwolf Wiggins on 09-24-2024 Hemoglobin (Bld) [Mass/Vol] 10.3 g/dL Low 13.0-16.5 [facility] Immature granulocytes/100 WB C Auto (Bld)Ordered By: fili Wiggins on 09-24-2024 Immature granulocytes/100 WBC (Bld) 0.400 % 0.0-0.9 [facility] MCV (mean corpuscular volume ) determinationOrdered By: biancasaint louiswolf Wiggins on 09-24-2024 MCV (RBC) [Entitic vol] 90.8 fL 80-94 [facility] Mean corpuscular hemoglobin (MCH) determinationOrdered By: [facility] on 09-24-2024 MCH (RBC) [Entitic mass] 27.0 pg 27.0-32.0 [facility] Monocyte percentageOrdered B y: Nando Wiggins on 09-24-2024 Monocytes/100 WBC (Bld) 11.8 % High 0-10 [facility] Neutrophil percentageOrdered By: [facility] on 09-24-2024 Neutrophils/100 WBC (Bld) 58.6 % 47-70 [facility] Platelet countOrdered By: Kathie rehanwolf Wiggins on 09-24-2024 Platelets (Bld) [#/Vol] 209 10*3/uL 150-450 [facility] Potassium measurement (mass/ volume)Ordered By: Nando Wiggins on 09-24-2024 Potassium (Unsp spec) [Mass/Vol] 3.4 mmol/L 3.3-5.1 [facility] RBC Auto (Bld) [#/Vol]Ordere d By: fili Wiggins on 09-24-2024 RBC (Bld) [#/Vol] 3.81 10*6/uL Low 4.6-6.2 [facility] Serum creatinine measurement (mass/volume)Ordered By: Nando Wiggins on 09-24-2024 Creatinine [Mass/Vol] 4.34 mg/dL High 0.70-1.20 [facility] Serum glucose measurement (m ass/volume)Ordered By: Nando Wiggins on 09-24-2024 Glucose [Mass/Vol] 241 mg/dL High 70-99 [facility] Serum or plasma calcium lilli urement (mass/volume)Ordered By: Nando Wiggins on 09-24-2024 Calcium [Mass/Vol] 9.0 mg/dL 7.6-11.0 [facility] Serum or plasma urea nitroge n measurement (mass/volume)Ordered By: Nando Wiggins on 09-24-2024 Urea nitrogen [Mass/Vol] 55 mg/dL High 4-19 [facility] Sodium levelOrdered By: Deb Wiggins on 09-24-2024 Sodium [Moles/Vol] 134 mmol/L 133-145 [facility] White blood cell (WBC) count Ordered By: Nando Wiggins on 09-24-2024 WBC (Bld) [#/Vol] 6.8 10*3/uL 4.4-11.0 [facility] Absolute lymphocyte countOrd ered By: Nando Wiggins on 09-17-2024 Lymphocytes Auto (Unsp spec) [#/Vol] 1.93 10*3/uL 0.83-4.51 [facility] Anion gap in Serum or Plasma Ordered By: Nando Wiggins on 09-17-2024 Anion gap [Moles/Vol] 13 mmol/L 5-15 [facility] Automated lymphocyte count a s percentage of total leukocytesOrdered By: Nando Wiggins on 09-17-2024 Lymphocytes/100 WBC Auto (Unsp spec) 18.7 % Low 19-41 [facility] BUN/creatinine ratioOrdered By: Nando Wiggins on 09-17-2024 Urea nitrogen/Creatinine [Mass ratio] 12.3 mg/mg 10-20 [facility] Basophil percentageOrdered B y: Nando Wiggins on 09-17-2024 Basophils/100 WBC (Bld) 0.7 % 0-1 [facility] Carbon dioxide, total [Moles /volume] in Central venous bloodOrdered By: Nando Wiggins on 09-17-2024 CO2 [Moles/Vol] 27.5 mmol/L 21.0-32.0 [facility] Chloride assayOrdered By: Kathie Wiggins on 09-17-2024 Chloride [Moles/Vol] 93 mmol/L Low 98-108 [facility] Eosinophil percentageOrdered By: Nando Wiggins 09-17-2024 Eosinophils/100 WBC (Bld) 2.3 % 0-5 [facility] Erythrocyte distribution wid th ratioOrdered By: Nando Wiggins on 09-17-2024 Erythrocyte distribution width (RBC) [Ratio] 17.6 % High 11.6-14.6 [facility] Erythrocyte distribution wid th standard deviationOrdered By: Nando Wiggins 09-17-2024 Erythrocyte distribution width (RBC) [Ratio] 59.3 fl High 35.1-43.9 [facility] Glomerular filtration rate ( GFR) estimation/1.73 sq m using serum, plasma, or whole bOrdered By: Nando Wiggins 09-17-2024 GFR/1.73 sq M.predicted among non-blacks MDRD (S/P/Bld) [Vol rate/Area] 13 mL/min/{1.73_m2} Low >60 [facility] Hematocrit Auto (Bld) [Volum e fraction]Ordered By: Nando Wiggins 09-17-2024 Hematocrit (Bld) [Volume fraction] 32.9 % Low 40-54 [facility] Hemoglobin measurementOrdere d By: Nando Wiggins 09-17-2024 Hemoglobin (Bld) [Mass/Vol] 9.7 g/dL Low 13.0-16.5 [facility] Immature granulocytes/100 WB C Auto (Bld)Ordered By: Nando Wiggins 09-17-2024 Immature granulocytes/100 WBC (Bld) 0.400 % 0.0-0.9 [facility] MCV (mean corpuscular volume ) determinationOrdered By: Nando Wiggins 09-17-2024 MCV (RBC) [Entitic vol] 91.9 fL 80-94 [facility] Mean corpuscular hemoglobin (MCH) determinationOrdered By: Nando Wiggins on 09-17-2024 MCH (RBC) [Entitic mass] 27.1 pg 27.0-32.0 [facility] Monocyte percentageOrdered B y: Nando Wiggins on 09-17-2024 Monocytes/100 WBC (Bld) 10.2 % High 0-10 [facility] [facility] Neutrophil percentageOrdered By: Nando Wiggins on 09-17-2024 Neutrophils/100 WBC (Bld) 67.7 % 47-70 [facility] Platelet countOrdered By: Kathie Wiggins on 09-17-2024 Platelets (Bld) [#/Vol] 275 10*3/uL 150-450 [facility] Potassium measurement (mass/ volume)Ordered By: Nando Meekcheko on 09-17-2024 Potassium (Unsp spec) [Mass/Vol] 3.3 mmol/L 3.3-5.1 [facility] RBC Auto (Bld) [#/Vol]Ordere d By: Nando Wiggins on 09-17-2024 RBC (Bld) [#/Vol] 3.58 10*6/uL Low 4.6-6.2 [facility] Serum creatinine measurement (mass/volume)Ordered By: Nando Wiggins on 09-17-2024 Creatinine [Mass/Vol] 4.25 mg/dL High 0.70-1.20 [facility] Serum glucose measurement (m ass/volume)Ordered By: Nando Meekcheko on 09-17-2024 Glucose [Mass/Vol] 151 mg/dL High 70-99 [facility] Serum or plasma calcium lilli urement (mass/volume)Ordered By: Nando Meekcheko on 09-17-2024 Calcium [Mass/Vol] 8.7 mg/dL 7.6-11.0 [facility] Serum or plasma urea nitroge n measurement (mass/volume)Ordered By: Nando Meeklakshmidesiree on 09-17-2024 Urea nitrogen [Mass/Vol] 52 mg/dL High 4-19 [facility] Sodium levelOrdered By: Deb quintana Meeklakshmidesiree on 09-17-2024 Sodium [Moles/Vol] 134 mmol/L 133-145 [facility] White blood cell (WBC) count Ordered By: Nando Wiggins on 09-17-2024 WBC (Bld) [#/Vol] 10.3 10*3/uL 4.4-11.0 [facility] Bilirubin directOrdered By: Nando Wiggins on 09-12-2024 Bilirubin.direct [Mass/Vol] 0.11 mg/dL 0.00-0.30 [facility] Bilirubin, totalOrdered By: Nando Wiggins on 09-12-2024 Bilirubin [Mass/Vol] 0.25 mg/dL 0.00-1.30 [facility] Hemoglobin A1c percentageOrd ered By: Nando Wiggins on 09-12-2024 HbA1c (Bld) [Mass fraction] 6.1 % High <5.7 [facility] No Panel InformationOrdered By: Nando Wiggins on 09-12-2024 16 U/L <38 [facility] Serum globulin measurementOr dered By: Nando Wiggins 09-12-2024 Globulin (S) [Mass/Vol] 3.3 g/dL 2.2-4.2 [facility] Serum or plasma alanine hawkins otransferase (ALT) measurementOrdered By: Nando Wiggins 09-12-2024 ALT [Catalytic activity/Vol] U/L <47 [facility] Serum or plasma albumin lilli urement (mass/volume)Ordered By: Nando Wigigns 09-12-2024 Albumin [Mass/Vol] 2.8 g/dL Low 3.4-4.8 [facility] Serum or plasma alkaline penelope sphatase measurementOrdered By: Nando Wiggins 09-12-2024 ALP [Catalytic activity/Vol] 55 U/L 40-129 [facility] Total proteinOrdered By: Sinan Wiggins on 09-12-2024 Protein [Mass/Vol] 6.0 g/dL 5.9-8.4 [facility] Vitamin B12 ser/plasOrdered By: Nando Wiggins 09-12-2024 Cobalamin (Vitamin B12) [Mass/Vol] 717 pg/mL 180-914 [facility] Absolute lymphocyte countOrd ered By: Nando Wiggins on 09-10-2024 Lymphocytes Auto (Unsp spec) [#/Vol] 1.78 10*3/uL 0.83-4.51 [facility] Anion gap in Serum or Plasma Ordered By: Nando Wiggins on 09-10-2024 Anion gap [Moles/Vol] 12 mmol/L 5-15 [facility] Automated lymphocyte count a s percentage of total leukocytesOrdered By: Nando Wiggins on 09-10-2024 Lymphocytes/100 WBC Auto (Unsp spec) 21.1 % 19-41 [facility] BUN/creatinine ratioOrdered By: Nando Wiggins on 09-10-2024 Urea nitrogen/Creatinine [Mass ratio] 11.1 mg/mg 10-20 [facility] Basophil percentageOrdered B y: Nando Wiggins on 09-10-2024 Basophils/100 WBC (Bld) 0.7 % 0-1 [facility] Carbon dioxide, total [Moles /volume] in Central venous bloodOrdered By: Nando Wiggins on 09-10-2024 CO2 [Moles/Vol] 27.1 mmol/L 21.0-32.0 [facility] Chloride assayOrdered By: Kathie Wiggins on 09-10-2024 Chloride [Moles/Vol] 94 mmol/L Low 98-108 [facility] Eosinophil percentageOrdered By: Nando Wiggins on 09-10-2024 Eosinophils/100 WBC (Bld) 1.8 % 0-5 [facility] Erythrocyte distribution wid th ratioOrdered By: Nando Wiggins on 09-10-2024 Erythrocyte distribution width (RBC) [Ratio] 17.3 % High 11.6-14.6 [facility] Erythrocyte distribution wid th standard deviationOrdered By: Nando Wiggins on 09-10-2024 Erythrocyte distribution width (RBC) [Ratio] 56.1 fl High 35.1-43.9 [facility] Glomerular filtration rate ( GFR) estimation/1.73 sq m using serum, plasma, or whole bOrdered By: Nando Brownedesiree on 09-10-2024 GFR/1.73 sq M.predicted among non-blacks MDRD (S/P/Bld) [Vol rate/Area] 14 mL/min/{1.73_m2} Low >60 [facility] Hematocrit Auto (Bld) [Volum e fraction]Ordered By: Nando Wiggins on 09-10-2024 Hematocrit (Bld) [Volume fraction] 29.7 % Low 40-54 [facility] Hemoglobin measurementOrdere d By: Nando Wiggins on 09-10-2024 Hemoglobin (Bld) [Mass/Vol] 9.1 g/dL Low 13.0-16.5 [facility] Immature granulocytes/100 WB C Auto (Bld)Ordered By: Nando Wiggins on 09-10-2024 Immature granulocytes/100 WBC (Bld) 1.200 % High 0.0-0.9 [facility] MCV (mean corpuscular volume ) determinationOrdered By: Nando Wiggins on 09-10-2024 MCV (RBC) [Entitic vol] 88.9 fL 80-94 [facility] Mean corpuscular hemoglobin (MCH) determinationOrdered By: Nando Wiggins on 09-10-2024 MCH (RBC) [Entitic mass] 27.2 pg 27.0-32.0 [facility] Monocyte percentageOrdered B y: Nando Wiggins on 09-10-2024 Monocytes/100 WBC (Bld) 11.2 % High 0-10 [facility] Neutrophil percentageOrdered By: fili Wiggins on 09-10-2024 Neutrophils/100 WBC (Bld) 64.0 % 47-70 [facility] Platelet countOrdered By: Kathie rehanwolf Edenlakshmidesiree on 09-10-2024 Platelets (Bld) [#/Vol] 305 10*3/uL 150-450 [facility] Potassium measurement (mass/ volume)Ordered By: Nando Wiggins on 09-10-2024 Potassium (Unsp spec) [Mass/Vol] 3.9 mmol/L 3.3-5.1 [facility] RBC Auto (Bld) [#/Vol]Ordere d By: Nando Meeklakshmidesiree on 09-10-2024 RBC (Bld) [#/Vol] 3.34 10*6/uL Low 4.6-6.2 [facility] Serum creatinine measurement (mass/volume)Ordered By: Kathiefili Edenlakshmidesiree on 09-10-2024 Creatinine [Mass/Vol] 3.98 mg/dL High 0.70-1.20 [facility] Serum glucose measurement (m ass/volume)Ordered By: Nando Wiggins on 09-10-2024 Glucose [Mass/Vol] 117 mg/dL High 70-99 [facility] Serum or plasma calcium lilli urement (mass/volume)Ordered By: Kathiefili Wiggins on 09-10-2024 Calcium [Mass/Vol] 8.9 mg/dL 7.6-11.0 [facility] Serum or plasma urea nitroge n measurement (mass/volume)Ordered By: Nando Wiggins on 09-10-2024 Urea nitrogen [Mass/Vol] 44 mg/dL High 4-19 [facility] Sodium levelOrdered By: Deb quintana Meekcheko on 09-10-2024 Sodium [Moles/Vol] 133 mmol/L 133-145 [facility] White blood cell (WBC) count Ordered By: Kathiefili Wiggins on 09-10-2024 WBC (Bld) [#/Vol] 8.5 10*3/uL 4.4-11.0 [facility] Bedside Glucoseon 09-04-2024 FINGERSTICK GLU 214 mg/dL High 74-106 [facility] Comment on above: Result Comment: FANG GEMENT OF PATIENT CARE PER NURSING PROTOCOL Performed By: #### L 501.080 ####[facility] [address] [place], [place], [address] FINGERSTICK GLU 151 mg/dL High 74-106 [facility] Comment on above: Result Comment: FANG GEMENT OF PATIENT CARE PER NURSING PROTOCOL Performed By: #### L 501.080 ####[facility] [address] [place], [place], [id number] Gl[facility] at [facility] deOrdered By: Lele White on 09-04-2024 Glucose [Mass/Vol] 214 mg/dL High 74-106 [facility] Absolute lymphocyte countOrd ered By: Salma Cervantes on 09-03-2024 Lymphocytes Auto (Unsp spec) [#/Vol] 1.48 10*3/uL 0.83-4.51 [facility] Automated lymphocyte count a s percentage of total leukocytesOrdered By: Salma Cervantes on 09-03-2024 Lymphocytes/100 WBC Auto (Unsp spec) 19.3 % 19-41 [facility] Basophil percentageOrdered B y: Salma Cervantes on 09-03-2024 Basophils/100 WBC (Bld) 0.5 % 0-1 [facility] Bedside Glucoseon 09-03-2024 FINGERSTICK GLU 219 mg/dL High 74-106 [facility] Comment on above: Result Comment: FANG GEMENT OF PATIENT CARE PER NURSING PROTOCOL Performed By: #### L 501.080 ####[facility] [address] [facility] [address] FINGERSTICK GLU 212 mg/dL High [facility]106 [facility] Comment on above: Result Comment: FANG GEMENT OF PATIENT CARE PER NURSING PROTOCOL Performed By: #### L 501.080 ####[facility] [address] [place], [address] FINGERSTICK GLU 172 mg/dL High [facility]106 [facility] Comment on above: Result Comment: FANG GEMENT OF PATIENT CARE PER NURSING PROTOCOL Performed By: #### L 501.080 ####[facility] [address] [facility] [address] FINGERSTICK GLU 175 mg/dL High [facility]106 [facility] Comment on above: Result Comment: FANG GEMENT OF PATIENT CARE PER NURSING PROTOCOL Performed By: #### L 501.080 ####[facility] [address] [place], [address] CBC W/Diff, Automatedon 08-21 Absolute Lymph 1.48 X10 3/uL Normal 0.83-4.51 [facility] Comment on above: Performed By: #### L 100.0100 ####[facility] [address] [place], [address] Absolute Neut 5.2 X10 3/uL Normal 2.0-7.7 [facility] Comment on above: Performed By: #### L 100.0100 ####[facility] [address] [place], [address] Basophils/100 WBC (Bld) 0.5 % Normal 0-1 [facility] Comment on above: Performed By: #### L 100.0100 ####[facility] [address] [place], [address] Eosinophils/100 WBC (Bld) 2.7 % Normal 0-5 [facility] Comment on above: Performed By: #### L 100.0100 ####[facility] [address] [place], [address] Erythrocyte distribution width (RBC) [Ratio] 16.3 % High 11.6-14.6 [facility] Comment on above: Performed By: #### L 100.0100 ####[facility] [address] [place], [address] Hematocrit (Bld) [Volume fraction] 24.8 % Low 40-54 [facility] Comment on above: Performed By: #### L 100.0100 ####[facility] [address] [place], [address] Hemoglobin (Bld) [Mass/Vol] 7.4 g/dL Low 13.0-16.5 [facility] Comment on above: Performed By: #### L 100.0100 ####[facility] [address] [place], [address] IG% 0.500 Normal 0.0-0.9 [facility] Comment on above: Result Comment: IG% - Immature Granulocytes (promyelocytes, myelocytes andmetamyelocytes) > 1% indicates that a LEFT SHIFT is Present. Performed By: #### L 100.0100 ####[facility] [address] [place], [address] Lymphocytes/100 WBC (Bld) 19.3 % Normal 19-41 [facility] Comment on above: Performed By: #### L 100.0100 ####[facility] [address] [place], [address] MCH (RBC) [Entitic mass] 26.6 pg Low 27.0-32.0 [facility] Comment on above: Performed By: #### L 100.0100 ####[facility] [address] [place], [address] MCHC (RBC) [Mass/Vol] 29.8 g/dL Low 32-36 [facility] Comment on above: Performed By: #### L 100.0100 ####[facility] [address] [place], [address] MCV (RBC) [Entitic vol] 89.2 fL Normal 80-94 [facility] Comment on above: Performed By: #### L 100.0100 ####[facility] [address] [place], [address] Monocytes/100 WBC (Bld) 9.7 % Normal 0-10 [facility] Comment on above: Performed By: #### L 100.0100 ####[facility] [address] [place], [address] Neutrophils/100 WBC (Bld) 67.3 % Normal 47-70 [facility] Comment on above: Performed By: #### L 100.0100 ####[facility] [address] [place], [address] Nucleated RBC (Bld) [#/Vol] 0 10*3/uL Normal 0-5 [facility] Comment on above: Performed By: #### L 100.0100 ####[facility] [address] [place], [address] Platelet mean volume (Bld) [Entitic vol] 10.9 fL Normal 6.2-12.0 [facility] Comment on above: Performed By: #### L 100.0100 ####[facility] [address] [place], [address] Platelets (Bld) [#/Vol] 305 10*3/uL Normal 150-450 [facility] Comment on above: Performed By: #### L 100.0100 ####[facility] [address] [place], [address] RBC (Bld) [#/Vol] 2.78 10*6/uL Low 4.6-6.2 [facility] Comment on above: Performed By: #### L 100.0100 ####[facility] [address] [place], [address] RDW SD 53.4 fl High 35.1-43.9 [facility] Comment on above: Performed By: #### L 100.0100 ####[facility] [address] [place], [address] WBC (Bld) [#/Vol] 7.7 10*3/uL Normal 4.4-11.0 [facility] Comment on above: Performed By: #### L 100.0100 ####[facility] [address] [place], [address] Eosinophil percentageOrdered By: Salma Cervantes on 09-03-2024 Eosinophils/100 WBC (Bld) 2.7 % 0-5 [facility] Erythrocyte distribution wid th ratioOrdered By: Salma Cervanets on 09-03-2024 Erythrocyte distribution width (RBC) [Ratio] 16.3 % High 11.6-14.6 [facility] Erythrocyte distribution wid th standard deviationOrdered By: Salma Cervantes on 09-03-2024 Erythrocyte distribution width (RBC) [Ratio] 53.4 fl High 35.1-43.9 [facility] Hematocrit Auto (Bld) [Volum e fraction]Ordered By: Salma Cervantes on 09-03-2024 Hematocrit (Bld) [Volume fraction] 24.8 % Low 40-54 [facility] Hemoglobin measurementOrdere d By: Salma Cervantes on 09-03-2024 Hemoglobin (Bld) [Mass/Vol] 7.4 g/dL Low 13.0-16.5 [facility] Immature granulocytes/100 WB C Auto (Bld)Ordered By: Salma Cervantes on 09-03-2024 Immature granulocytes/100 WBC (Bld) 0.500 % 0.0-0.9 [facility] MCV (mean corpuscular volume ) determinationOrdered By: Salma Cervantes on 09-03-2024 MCV (RBC) [Entitic vol] 89.2 fL 80-94 [facility] Mean corpuscular hemoglobin (MCH) determinationOrdered By: Salma Cervantes on 09-03-2024 MCH (RBC) [Entitic mass] 26.6 pg Low 27.0-32.0 [facility] Monocyte percentageOrdered B y: Salma Cervantes on 09-03-2024 Monocytes/100 WBC (Bld) 9.7 % 0-10 [facility] Neutrophil percentageOrdered By: Salma Cervantes on 09-03-2024 Neutrophils/100 WBC (Bld) 67.3 % 47-70 [facility] Platelet countOrdered By: Xavier Cervantes on 09-03-2024 Platelets (Bld) [#/Vol] 305 10*3/uL 150-450 [facility] RBC Auto (Bld) [#/Vol]Ordere d By: Salma Cervantes on 09-03-2024 RBC (Bld) [#/Vol] 2.78 10*6/uL Low 4.6-6.2 [facility] White blood cell (WBC) count Ordered By: Salma Cervantes on 09-03-2024 WBC (Bld) [#/Vol] 7.7 10*3/uL 4.4-11.0 [facility] Anion gap in Serum or Plasma Ordered By: Salma Cervantes on 09-02-2024 Anion gap [Moles/Vol] 12 mmol/L 10-04 [facility] BUN/creatinine ratioOrdered By: Salma Cervantse on 09-02-2024 Urea nitrogen/Creatinine [Mass ratio] 13.7 mg/mg - [facility] Basic Metabolic Profile (BMP )on 09-02-2024 BUN/CRE 13.7 RATIO Normal - [facility] Comment on above: Performed By: #### L 500.2500 ####[facility] [address] [place], [address] Calcium [Mass/Vol] 8.7 mg/dL Normal 7.6-11.0 [facility] Comment on above: Performed By: #### L 500.2500 ####[facility] [address] [place], [address] Chloride [Moles/Vol] 96 mmol/L Low 98-108 [facility] Comment on above: Performed By: #### L 500.2500 ####[facility] [address] [place], [address] CO2 [Moles/Vol] 23.2 mmol/L Normal 21.0-32.0 [facility] Comment on above: Performed By: #### L 500.2500 ####[facility] [address] [place], [address] Creatinine [Mass/Vol] 4.19 mg/dL High 0.70-1.20 [facility] Comment on above: Performed By: #### L 500.2500 ####[facility] [address] [place], [address] ECRCL 13.21 ml/min Low 50-250 [facility] Comment on above: Performed By: #### L 500.2500 ####[facility] [address] [place], [address] GAP 12 Normal 5-15 [facility] Comment on above: Performed By: #### L 500.2500 ####[facility] [address] [place], [address] GFR/1.73 sq M.predicted among non-blacks MDRD (S/P/Bld) [Vol rate/Area] 13 mL/min/{1.73_m2} Low >60 [facility] Comment on above: Result Comment: mL/m in/1.73m2 CKD-EPI Creatinine Equation (2020) Performed By: #### L 500.2500 ####[facility] [address] [place], [address] Glucose [Mass/Vol] 186 mg/dL High 70-99 [facility] Comment on above: Performed By: #### L 500.2500 ####[facility] [address] [place], [address] Potassium [Moles/Vol] 4.8 mmol/L Normal 3.3-5.1 [facility] Comment on above: Performed By: #### L 500.2500 ####[facility] [address] [place], [address] Sodium [Moles/Vol] 131 mmol/L Low 133-145 [facility] Comment on above: Performed By: #### L 500.2500 ####[facility] [address] [place], [address] Urea nitrogen [Mass/Vol] 57 mg/dL High 4-19 [facility] Comment on above: Performed By: #### L 500.2500 ####[facility] [address] [place], [address] Bedside Glucoseon 09-02-2024 FINGERSTICK GLU 212 mg/dL High 74-106 [facility] Comment on above: Result Comment: FANG GEMENT OF PATIENT CARE PER NURSING PROTOCOL Performed By: #### L 501.080 ####[facility] [address] [place], [address] FINGERSTICK GLU 183 mg/dL High 74-106 [facility] Comment on above: Result Comment: FANG GEMENT OF PATIENT CARE PER NURSING PROTOCOL Performed By: #### L 501.080 ####[facility] [address] [place], [address] FINGERSTICK GLU 219 mg/dL High 74-106 [facility] Comment on above: Result Comment: FANG GEMENT OF PATIENT CARE PER NURSING PROTOCOL Performed By: #### L 501.080 ####[facility] [address] [place], [address] FINGERSTICK GLU 177 mg/dL High 74-106 [facility] Comment on above: Result Comment: FANG GEMENT OF PATIENT CARE PER NURSING PROTOCOL Performed By: #### L 501.080 ####[facility] [address] [place], [address] CBC W/Diff, Automatedon 04-05 25-2024 Absolute Lymph 1.42 X10 3/uL Normal 0.83-4.51 [facility] Comment on above: Performed By: #### L 100.0100 ####[facility] [address] [place], [address] Absolute Neut 4.8 X10 3/uL Normal 2.0-7.7 [facility] Comment on above: Performed By: #### L 100.0100 ####[facility] [address] [place], [address] Basophils/100 WBC (Bld) 0.4 % Normal 0-1 [facility] Comment on above: Performed By: #### L 100.0100 ####[facility] [address] [place], [address] Eosinophils/100 WBC (Bld) 3.2 % Normal 0-5 [facility] Comment on above: Performed By: #### L 100.0100 ####[facility] [address] [place], [address] Erythrocyte distribution width (RBC) [Ratio] 16.0 % High 11.6-14.6 [facility] Comment on above: Performed By: #### L 100.0100 ####[facility] [address] [place], [address] Hematocrit (Bld) [Volume fraction] 25.8 % Low 40-54 [facility] Comment on above: Performed By: #### L 100.0100 ####[facility] [address] [place], [address] Hemoglobin (Bld) [Mass/Vol] 7.8 g/dL Low 13.0-16.5 [facility] Comment on above: Performed By: #### L 100.0100 ####[facility] [address] [place], [address] IG% 0.400 Normal 0.0-0.9 [facility] Comment on above: Result Comment: IG% - Immature Granulocytes (promyelocytes, myelocytes andmetamyelocytes) > 1% indicates that a LEFT SHIFT is Present. Performed By: #### L 100.0100 ####[facility] [address] [place], [address] Lymphocytes/100 WBC (Bld) 19.9 % Normal 19-41 [facility] Comment on above: Performed By: #### L 100.0100 ####[facility] [address] [place], [address] MCH (RBC) [Entitic mass] 27.2 pg Normal 27.0-32.0 [facility] Comment on above: Performed By: #### L 100.0100 ####[facility] [address] [place], [address] MCHC (RBC) [Mass/Vol] 30.2 g/dL Low 32-36 [facility] Comment on above: Performed By: #### L 100.0100 ####[facility] [address] [place], [address] MCV (RBC) [Entitic vol] 89.9 fL Normal 80-94 [facility] Comment on above: Performed By: #### L 100.0100 ####[facility] [address] [place], [address] Monocytes/100 WBC (Bld) 9.1 % Normal 0-10 [facility] Comment on above: Performed By: #### L 100.0100 ####[facility] [address] [place], [address] Neutrophils/100 WBC (Bld) 67.0 % Normal 47-70 [facility] Comment on above: Performed By: #### L 100.0100 ####[facility] [address] [place], [address] Nucleated RBC (Bld) [#/Vol] 0 10*3/uL Normal 0-5 [facility] Comment on above: Performed By: #### L 100.0100 ####[facility] [address] [place], [address] Platelet mean volume (Bld) [Entitic vol] 10.6 fL Normal 6.2-12.0 [facility] Comment on above: Performed By: #### L 100.0100 ####[facility] [address] [place], [address] Platelets (Bld) [#/Vol] 284 10*3/uL Normal 150-450 [facility] Comment on above: Performed By: #### L 100.0100 ####[facility] [address] [place], [address] RBC (Bld) [#/Vol] 2.87 10*6/uL Low 4.6-6.2 [facility] Comment on above: Performed By: #### L 100.0100 ####[facility] [address] [place], [address] RDW SD 52.3 fl High 35.1-43.9 [facility] Comment on above: Performed By: #### L 100.0100 ####[facility] [address] [place], [address] WBC (Bld) [#/Vol] 7.2 10*3/uL Normal 4.4-11.0 [facility] Comment on above: Performed By: #### L 100.0100 ####[facility] [address] [place], [place], [id number]) Carbon dioxide, total [Moles /volume] in Central venous bloodOrdered By: Salma Cervantes on 09-02-2024 CO2 [Moles/Vol] 23.2 mmol/L 21.0-32.0 [facility] Chloride assayOrdered By: Xavier Cervantes on 09-02-2024 Chloride [Moles/Vol] 96 mmol/L Low 98-108 [facility] Glomerular filtration rate ( GFR) estimation/1.73 sq m using serum, plasma, or whole bOrdered By: Salma Cervantes on 09-02-2024 GFR/1.73 sq M.predicted among non-blacks MDRD (S/P/Bld) [Vol rate/Area] 13 mL/min/{1.73_m2} Low >60 [facility] Potassium measurement (mass/ volume)Ordered By: Salma Cervantes on 09-02-2024 Potassium (Unsp spec) [Mass/Vol] 4.8 mmol/L 3.3-5.1 [facility] Serum creatinine measurement (mass/volume)Ordered By: Salma Cervantes on 09-02-2024 Creatinine [Mass/Vol] 4.19 mg/dL High 0.70-1.20 [facility] Serum glucose measurement (m ass/volume)Ordered By: Salma Billy on 09-02-2024 Glucose [Mass/Vol] 186 mg/dL High 70-99 [facility] Serum or plasma calcium lilli urement (mass/volume)Ordered By: Salma Billy on 09-02-2024 Calcium [Mass/Vol] 8.7 mg/dL 7.6-11.0 [facility] Serum or plasma urea nitroge n measurement (mass/volume)Ordered By: Salmavito Cervantes on 09-02-2024 Urea nitrogen [Mass/Vol] 57 mg/dL High 4-19 [facility] Sodium levelOrdered By: Juan samano Billy on 09-02-2024 Sodium [Moles/Vol] 131 mmol/L Low 133-145 [facility] Bedside Glucoseon 09-01-2024 FINGERSTICK GLU 183 mg/dL High 74-106 [facility] Comment on above: Result Comment: FANG GEMENT OF PATIENT CARE PER NURSING PROTOCOL Performed By: #### L 501.080 ####[facility] [address] [facility] [address] FINGERSTICK GLU 230 mg/dL High 74-106 [facility] Comment on above: Result Comment: FANG GEMENT OF PATIENT CARE PER NURSING PROTOCOL Performed By: #### L 501.080 ####[facility] [address] [place], [address] FINGERSTICK GLU 103 mg/dL Normal 74-106 [facility] Comment on above: Result Comment: FANG GEMENT OF PATIENT CARE PER NURSING PROTOCOL Performed By: #### L 501.080 ####[facility] [address] [place], [address] FINGERSTICK GLU 216 mg/dL High 74-106 [facility] Comment on above: Result Comment: FANG GEMENT OF PATIENT CARE PER NURSING PROTOCOL Performed By: #### L 501.080 ####[facility] [address] [place], [address] Serum or plasma vancomycin m easurement (mass/volume)Ordered By: Lele White on 09-01-2024 Vancomycin [Mass/Vol] 14.1 ug/mL 0.0-15.0 [facility] Vancomycin, Random Levelon 0 09-01-2024 VANCO, RANDOM 14.1 ug/mL Normal 0.0-15.0 [facility] Comment on above: Result Comment: VANC OMYCIN STANDARD DRUG THERAPY: CRITICAL VALUE IS > 15.0 mg/LVANCOMYCIN HIGH INTENSITY THERAPY: CRITICAL VALUE IS > 20.0 mg/LPLEASE CONTACT PHARMACY SERVICES (#2871) FOR INTERPRETATIONOF RESULTS. THIS RESULT DOES NOT REPRESENT A PEAK OR TROUGHLEVEL FOR THIS DRUG. Performed By: #### L 501.8850 ####[facility] [address] [facility] [address] AV Fistula/Dialysis Graft Sc anon 08-31-2024 AV Fistula/Dialysis Graft Scan Normal [facility] Bedside Glucoseon 08-31-2024 FINGERSTICK GLU 169 mg/dL High 74-106 [facility] Comment on above: Result Comment: FANG GEMENT OF PATIENT CARE PER NURSING PROTOCOL Performed By: #### L 501.080 ####[facility] [address] [facility] [address] FINGERSTICK GLU 207 mg/dL High 74-106 [facility] Comment on above: Result Comment: FANG GEMENT OF PATIENT CARE PER NURSING PROTOCOL Performed By: #### L 501.080 ####[facility] [address] [facility] [address] FINGERSTICK GLU 162 mg/dL High 74-106 [facility] Comment on above: Result Comment: FANG GEMENT OF PATIENT CARE PER NURSING PROTOCOL Performed By: #### L 501.080 ####[facility] [address] [facility] [address] FINGERSTICK GLU 189 mg/dL High 74-106 [facility] Comment on above: Result Comment: FANG GEMENT OF PATIENT CARE PER NURSING PROTOCOL Performed By: #### L 501.080 ####[facility] [address] [place], [address] CBC W/Diff, Automatedon 08-21 Absolute Lymph 1.13 X10 3/uL Normal 0.83-4.51 [facility] Comment on above: Performed By: #### L 100.0100 ####[facility] [address] [place], [address] Absolute Neut 5.3 X10 3/uL Normal 2.0-7.7 [facility] Comment on above: Performed By: #### L 100.0100 ####[facility] [address] [place], [address] Basophils/100 WBC (Bld) 0.6 % Normal 0-1 [facility] Comment on above: Performed By: #### L 100.0100 ####[facility] [address] [place], [address] Eosinophils/100 WBC (Bld) 3.1 % Normal 0-5 [facility] Comment on above: Performed By: #### L 100.0100 ####[facility] [address] [place], [address] Erythrocyte distribution width (RBC) [Ratio] 16.1 % High 11.6-14.6 [facility] Comment on above: Performed By: #### L 100.0100 ####[facility] [address] [place], [address] Hematocrit (Bld) [Volume fraction] 26.1 % Low 40-54 [facility] Comment on above: Performed By: #### L 100.0100 ####[facility] [address] [place], [address] Hemoglobin (Bld) [Mass/Vol] 7.7 g/dL Low 13.0-16.5 [facility] Comment on above: Performed By: #### L 100.0100 ####[facility] [address] [place], [address] IG% 0.500 Normal 0.0-0.9 [facility] Comment on above: Result Comment: IG% - Immature Granulocytes (promyelocytes, myelocytes andmetamyelocytes) > 1% indicates that a LEFT SHIFT is Present. Performed By: #### L 100.0100 ####[facility] [address] [place], [address] Lymphocytes/100 WBC (Bld) 14.5 % Low 19-41 [facility] Comment on above: Performed By: #### L 100.0100 ####[facility] [address] [place], [address] MCH (RBC) [Entitic mass] 27.0 pg Normal 27.0-32.0 [facility] Comment on above: Performed By: #### L 100.0100 ####[facility] [address] [place], [address] MCHC (RBC) [Mass/Vol] 29.5 g/dL Low 32-36 [facility] Comment on above: Performed By: #### L 100.0100 ####[facility] [address] [place], [address] MCV (RBC) [Entitic vol] 91.6 fL Normal 80-94 [facility] Comment on above: Performed By: #### L 100.0100 ####[facility] [address] [place], [address] Monocytes/100 WBC (Bld) 12.9 % High 0-10 [facility] Comment on above: Performed By: #### L 100.0100 ####[facility] [address] [place], [address] Neutrophils/100 WBC (Bld) 68.4 % Normal 47-70 [facility] Comment on above: Performed By: #### L 100.0100 ####[facility] [address] [place], [address] Nucleated RBC (Bld) [#/Vol] 0 10*3/uL Normal 0-5 [facility] Comment on above: Performed By: #### L 100.0100 ####[facility] [address] [place], [address] Platelet mean volume (Bld) [Entitic vol] 10.5 fL Normal 6.2-12.0 [facility] Comment on above: Performed By: #### L 100.0100 ####[facility] [address] [place], [address] Platelets (Bld) [#/Vol] 234 10*3/uL Normal 150-450 [facility] Comment on above: Performed By: #### L 100.0100 ####[facility] [address] [place], [address] RBC (Bld) [#/Vol] 2.85 10*6/uL Low 4.6-6.2 [facility] Comment on above: Performed By: #### L 100.0100 ####[facility] [address] [place], [address] RDW SD 53.4 fl High 35.1-43.9 [facility] Comment on above: Performed By: #### L 100.0100 ####[facility] [address] [place], [address] WBC (Bld) [#/Vol] 7.8 10*3/uL Normal 4.4-11.0 [facility] Comment on above: Performed By: #### L 100.0100 ####[facility] [address] [place], [address] Basic Metabolic Profile (BMP )on 08-30-2024 BUN/CRE 11.0 RATIO Normal 10-20 [facility] Comment on above: Performed By: #### L 500.2500, L100.0100 ####[facility] [address] [place], [address] Calcium [Mass/Vol] 8.7 mg/dL Normal 7.6-11.0 [facility] Comment on above: Performed By: #### L 500.2500, L100.0100 ####[facility] [address] [place], [address] Chloride [Moles/Vol] 92 mmol/L Low 98-108 [facility] Comment on above: Performed By: #### L 500.2500, L100.0100 ####[facility] [address] [place], [address] CO2 [Moles/Vol] 27.5 mmol/L Normal 21.0-32.0 [facility] Comment on above: Performed By: #### L 500.2500, L100.0100 ####[facility] [address] [place], [address] Creatinine [Mass/Vol] 5.42 mg/dL High 0.70-1.20 [facility] Comment on above: Performed By: #### L 500.2500, L100.0100 ####[facility] [address] [place], [address] ECRCL 12.64 ml/min Low 50-250 [facility] Comment on above: Performed By: #### L 500.2500, L100.0100 ####[facility] [address] [place], [address] GAP 14 Normal 5-15 [facility] Comment on above: Performed By: #### L 500.2500, L100.0100 ####[facility] [address] [place], [address] GFR/1.73 sq M.predicted among non-blacks MDRD (S/P/Bld) [Vol rate/Area] 10 mL/min/{1.73_m2} Low >60 [facility] Comment on above: Result Comment: mL/m in/1.73m2 CKD-EPI Creatinine Equation (2020) Performed By: #### L 500.2500, L100.0100 ####[facility] [address] [place], [address] Glucose [Mass/Vol] 196 mg/dL High 70-99 [facility] Comment on above: Performed By: #### L 500.2500, L100.0100 ####[facility] [address] [place], [address] Potassium [Moles/Vol] 5.2 mmol/L High 3.3-5.1 [facility] Comment on above: Performed By: #### L 500.2500, L100.0100 ####[facility] [address] [place], [address] Sodium [Moles/Vol] 134 mmol/L Normal 133-145 [facility] Comment on above: Performed By: #### L 500.2500, L100.0100 ####[facility] [address] [place], [address] Urea nitrogen [Mass/Vol] 60 mg/dL High 4-19 [facility] Comment on above: Performed By: #### L 500.2500, L100.0100 ####[facility] [address] [place], [address] Bedside Glucoseon 08-30-2024 FINGERSTICK GLU 285 mg/dL High 74-106 [facility] Comment on above: Result Comment: FANG VAZQUEZ OF PATIENT CARE PER NURSING PROTOCOL Performed By: #### L 501.080 ####[facility] [address] [place], [address] FINGERSTICK GLU 287 mg/dL High 74-106 [facility] Comment on above: Result Comment: FANG GEMENT OF PATIENT CARE PER NURSING PROTOCOL Performed By: #### L 501.080 ####[facility] [address] [place], [address] FINGERSTICK GLU 192 mg/dL High 74-106 [facility] Comment on above: Result Comment: FANG GEMENT OF PATIENT CARE PER NURSING PROTOCOL Performed By: #### L 501.080 ####[facility] [address] [place], [address] FINGERSTICK GLU 195 mg/dL High 74-106 [facility] Comment on above: Result Comment: FANG GEMENT OF PATIENT CARE PER NURSING PROTOCOL Performed By: #### L 501.080 ####[facility] [address] [place], [address] CBC W/Diff, Automatedon 04- 0-2024 Absolute Lymph 1.31 X10 3/uL Normal 0.83-4.51 [facility] Comment on above: Performed By: #### L 500.2500, L100.0100 ####[facility] [address] [place], [address] Absolute Neut 7.1 X10 3/uL Normal 2.0-7.7 [facility] Comment on above: Performed By: #### L 500.2500, L100.0100 ####[facility] [address] [place], [address] Basophils/100 WBC (Bld) 0.5 % Normal 0-1 [facility] Comment on above: Performed By: #### L 500.2500, L100.0100 ####[facility] [address] [place], [address] Eosinophils/100 WBC (Bld) 0.9 % Normal 0-5 [facility] Comment on above: Performed By: #### L 500.2500, L100.0100 ####[facility] [address] [place], [address] Erythrocyte distribution width (RBC) [Ratio] 16.3 % High 11.6-14.6 [facility] Comment on above: Performed By: #### L 500.2500, L100.0100 ####[facility] [address] [place], [address] Hematocrit (Bld) [Volume fraction] 26.9 % Low 40-54 [facility] Comment on above: Performed By: #### L 500.2500, L100.0100 ####[facility] [address] [place], [address] Hemoglobin (Bld) [Mass/Vol] 7.9 g/dL Low 13.0-16.5 [facility] Comment on above: Performed By: #### L 500.2500, L100.0100 ####[facility] [address] [place], [address] IG% 0.600 Normal 0.0-0.9 [facility] Comment on above: Result Comment: IG% - Immature Granulocytes (promyelocytes, myelocytes andmetamyelocytes) > 1% indicates that a LEFT SHIFT is Present. Performed By: #### L 500.2500, L100.0100 ####[facility] [address] [place], [address] Lymphocytes/100 WBC (Bld) 13.4 % Low 19-41 [facility] Comment on above: Performed By: #### L 500.2500, L100.0100 ####[facility] [address] [place], [address] MCH (RBC) [Entitic mass] 26.8 pg Low 27.0-32.0 [facility] Comment on above: Performed By: #### L 500.2500, L100.0100 ####[facility] [address] [place], [address] MCHC (RBC) [Mass/Vol] 29.4 g/dL Low 32-36 [facility] Comment on above: Performed By: #### L 500.2500, L100.0100 ####[facility] [address] [place], [address] MCV (RBC) [Entitic vol] 91.2 fL Normal 80-94 [facility] Comment on above: Performed By: #### L 500.2500, L100.0100 ####[facility] [address] [place], [address] Monocytes/100 WBC (Bld) 12.2 % High 0-10 [facility] Comment on above: Performed By: #### L 500.2500, L100.0100 ####[facility] [address] [place], [address] Neutrophils/100 WBC (Bld) 72.4 % High 47-70 [facility] Comment on above: Performed By: #### L 500.2500, L100.0100 ####[facility] [address] [place], [address] Nucleated RBC (Bld) [#/Vol] 0 10*3/uL Normal 0-5 [facility] Comment on above: Performed By: #### L 500.2500, L100.0100 ####[facility] [address] [place], [address] Platelet mean volume (Bld) [Entitic vol] 10.7 fL Normal 6.2-12.0 [facility] Comment on above: Performed By: #### L 500.2500, L100.0100 ####[facility] [address] [place], [address] Platelets (Bld) [#/Vol] 279 10*3/uL Normal 150-450 [facility] Comment on above: Performed By: #### L 500.2500, L100.0100 ####[facility] [address] [place], [address] RBC (Bld) [#/Vol] 2.95 10*6/uL Low 4.6-6.2 [facility] Comment on above: Performed By: #### L 500.2500, L100.0100 ####[facility] [address] [place], [address] RDW SD 54.3 fl High 35.1-43.9 [facility] Comment on above: Performed By: #### L 500.2500, L100.0100 ####[facility] [address] [place], [address] WBC (Bld) [#/Vol] 9.8 10*3/uL Normal 4.4-11.0 [facility] Comment on above: Performed By: #### L 500.2500, L100.0100 ####[facility] [address] [place], [address] Consultation - Nephrologyon 08-30-2024 Consultation - Nephrology Normal [facility] Vancomycin, Random Levelon 0 08-30-2024 VANCO, RANDOM 12.3 ug/mL Normal 0.0-15.0 [facility] Comment on above: Result Comment: VANC OMYCIN STANDARD DRUG THERAPY: CRITICAL VALUE IS > 15.0 mg/LVANCOMYCIN HIGH INTENSITY THERAPY: CRITICAL VALUE IS > 20.0 mg/LPLEASE CONTACT PHARMACY SERVICES (#2326) FOR INTERPRETATIONOF RESULTS. THIS RESULT DOES NOT REPRESENT A PEAK OR TROUGHLEVEL FOR THIS DRUG. Performed By: #### L 501.8850 ####[facility] [address] [place], [address] Bedside Glucoseon 08-29-2024 FINGERSTICK GLU 218 mg/dL High 74-106 [facility] Comment on above: Result Comment: FANG VAZQUEZ OF PATIENT CARE PER NURSING PROTOCOL Performed By: #### L 501.080 ####[facility] [address] [place], [address] FINGERSTICK GLU 236 mg/dL High 74-106 [facility] Comment on above: Result Comment: FANG GEMENT OF PATIENT CARE PER NURSING PROTOCOL Performed By: #### L 501.080 ####[facility] [address] [place], [address] FINGERSTICK GLU 220 mg/dL High 74-106 [facility] Comment on above: Result Comment: FANG GEMENT OF PATIENT CARE PER NURSING PROTOCOL Performed By: #### L 501.080 ####[facility] [address] [place], [address] FINGERSTICK GLU 175 mg/dL High 74-106 [facility] Comment on above: Result Comment: FANG GEMENT OF PATIENT CARE PER NURSING PROTOCOL Performed By: #### L 501.080 ####[facility] [address] [place], [address] Decalcification bone/plaqueo n 08-29-2024 Decalcification bone/plaque Normal [facility] Comment on above: Performed By: #### P DEC ####[facility] [address] [place], [address] H AND P Exam - Surgicalon H&P Exam - Surgical Normal [facility] MR/POSTOP.ANEon 08-29-2024 MR/POSTOP.ANE Normal [facility] MR/MNAYUSCQ8yq 08-29-2024 MR/POSTOPAN2 Normal [facility] Operative Reporton Operative Report Normal [facility] BRCon 08-28-2024 RC Normal [facility] Comment on above: Result Comment: [id number] AP RC XM COMPATIBLE Performed By: #### B TSPAT, L500.2500, BRC, L100.0500 ####[facility] [address] [place], [address] Basic Metabolic Profile (BMP )on 08-28-2024 BUN/CRE 13.2 RATIO Normal 10-20 [facility] Comment on above: Order Comment: 400.1 Amputation Below Knee (Right) Performed By: #### B TSPAT, L500.2500, [facility], L100.0500 ####[facility] [address] 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, [address] Potassium [Moles/Vol] 4.4 mmol/L Normal 3.3-5.1 [facility] Comment on above: Order Comment: 400.1 Amputation Below Knee (Right) Performed By: #### B TSPAT, L500.2500, [facility], L100.0500 ####[facility] [address] 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, [address] CBC-Complete Blood Cnt No Di ffon 08-28-2024 Erythrocyte distribution width (RBC) [Ratio] 16.2 % High 11.6-14.6 [facility] Comment on above: Order Comment: 400.1 Performed By: #### B TSPAT, L500.2500, [facility], L100.0500 ####[facility] [address] [place], [address] Hematocrit (Bld) [Volume fraction] 30.6 % Low 40-54 [facility] Comment on above: Order Comment: 400.1 Performed By: #### B TSPAT, L500.2500, [facility], L100.0500 ####[facility] [address] [place], [address] Hemoglobin (Bld) [Mass/Vol] 9.1 g/dL Low 13.0-16.5 [facility] Comment on above: Order Comment: 400.1 Performed By: #### B TSPAT, L500.2500, C, L100.0500 ####[facility] [address] [place], [address] MCH (RBC) [Entitic mass] 26.9 pg Low 27.0-32.0 [facility] Comment on above: Order Comment: 400.1 Performed By: #### B TSPAT, L500.2500, BR[facility], L100.0500 ####[facility] [address] [place], [address] MCHC (RBC) [Mass/Vol] 29.7 g/dL Low 32-36 [facility] Comment on above: Order Comment: 400.1 Performed By: #### B TSPAT, L500.2500, BR[facility], L100.0500 ####[facility] [address] [place], [address] MCV (RBC) [Entitic vol] 90.5 fL Normal 80-94 [facility] Comment on above: Order Comment: 400.1 Performed By: #### B TSPAT, L500.2500, BR, L100.0500 ####[facility] [address] [place], [address] Platelet mean volume (Bld) [Entitic vol] 10.5 fL Normal 6.2-12.0 [facility] Comment on above: Order Comment: 400.1 Performed By: #### B TSPAT, L500.2500, [facility], L100.0500 ####[facility] [address] [place], [address] Platelets (Bld) [#/Vol] 321 10*3/uL Normal 150-450 [facility] Comment on above: Order Comment: 400.1 Performed By: #### B TSPAT, L500.2500, [facility], L100.0500 ####[facility] [address] [place], [address] RBC (Bld) [#/Vol] 3.38 10*6/uL Low 4.6-6.2 [facility] Comment on above: Order Comment: 400.1 Performed By: #### B TSPAT, L500.2500, [facility], L100.0500 ####[facility] [address] [place], [address] RDW SD 53.1 fl High 35.1-43.9 [facility] Comment on above: Order Comment: 400.1 Performed By: #### B TSPAT, L500.2500, [facility], L100.0500 ####[facility] [address] [place], [address] WBC (Bld) [#/Vol] 9.5 10*3/uL Normal 4.4-11.0 [facility] Comment on above: Order Comment: 400.1 Performed By: #### B TSPAT, L500.2500, [facility], L100.0500 ####[facility] [address] [place], [address] MR/PAT.ANEon 08-28-2024 MR/PAT.ANE Normal [facility] Type AND Screen - PAT ONLYon 08-28-2024 Ab SCREEN GEL Negative Normal [facility] Comment on above: Order Comment: SURGE RY DATE 08/29/2024 Amputation Below Knee (Right)[id number] Below Knee (Right)[id number] Below Knee (Right)TURNEYOTHER Performed By: #### B TSPAT, L500.2500, [facility], L100.0500 ####[facility] [address] [place], [address] Absolute lymphocyte countOrd ered By: Nando Wiggins on 08-27-2024 Lymphocytes Auto (Unsp spec) [#/Vol] 1.45 10*3/uL 0.83-4.51 [facility] Anion gap in Serum or Plasma Ordered By: Nando Wiggins on 08-27-2024 Anion gap [Moles/Vol] 15 mmol/L 5-15 [facility] Automated lymphocyte count a s percentage of total leukocytesOrdered By: Nando Wiggins on 08-27-2024 Lymphocytes/100 WBC Auto (Unsp spec) 16.0 % Low 19-41 [facility] BUN/creatinine ratioOrdered By: Nando Wiggins on 08-27-2024 Urea nitrogen/Creatinine [Mass ratio] 10.5 mg/mg 10-20 [facility] Basophil percentageOrdered B y: Nando Wiggins on 08-27-2024 Basophils/100 WBC (Bld) 0.6 % 0-1 [facility] Carbon dioxide, total [Moles /volume] in Central venous bloodOrdered By: Nando Wiggins on 08-27-2024 CO2 [Moles/Vol] 26.5 mmol/L 21.0-32.0 [facility] Chloride assayOrdered By: Kathie Wiggins on 08-27-2024 Chloride [Moles/Vol] 94 mmol/L Low 98-108 [facility] Eosinophil percentageOrdered By: Nando Wiggins on 08-27-2024 Eosinophils/100 WBC (Bld) 2.3 % 0-5 [facility] Erythrocyte distribution wid th ratioOrdered By: Nando Wiggins on 08-27-2024 Erythrocyte distribution width (RBC) [Ratio] 16.3 % High 11.6-14.6 [facility] Erythrocyte distribution wid th standard deviationOrdered By: Nando Wiggins on 08-27-2024 Erythrocyte distribution width (RBC) [Ratio] 54.3 fl High 35.1-43.9 [facility] Glomerular filtration rate ( GFR) estimation/1.73 sq m using serum, plasma, or whole bOrdered By: Nando Wiggins on 08-27-2024 GFR/1.73 sq M.predicted among non-blacks MDRD (S/P/Bld) [Vol rate/Area] 10 mL/min/{1.73_m2} Low >60 [facility] Hematocrit Auto (Bld) [Volum e fraction]Ordered By: Nando Wiggins on 08-27-2024 Hematocrit (Bld) [Volume fraction] 30.4 % Low 40-54 [facility] Hemoglobin measurementOrdere d By: Nando Wiggins on 08-27-2024 Hemoglobin (Bld) [Mass/Vol] 9.0 g/dL Low 13.0-16.5 [facility] Immature granulocytes/100 WB C Auto (Bld)Ordered By: Nando Wiggins on 08-27-2024 Immature granulocytes/100 WBC (Bld) 0.700 % 0.0-0.9 [facility] MCV (mean corpuscular volume ) determinationOrdered By: Nando Wiggins 08-27-2024 MCV (RBC) [Entitic vol] 91.3 fL 80-94 [facility] Mean corpuscular hemoglobin (MCH) determinationOrdered By: Nando Wiggins 08-27-2024 MCH (RBC) [Entitic mass] 27.0 pg 27.0-32.0 [facility] Monocyte percentageOrdered B y: Debsrinathwolf Edenlakshmidesiree on 08-27-2024 Monocytes/100 WBC (Bld) 10.7 % High 0-10 [facility] Neutrophil percentageOrdered By: Kathiebiancalilian Meeklakshmidesiree on 08-27-2024 Neutrophils/100 WBC (Bld) 69.7 % 47-70 [facility] Platelet countOrdered By: Kathie rehanwolf Wiggins on 08-27-2024 Platelets (Bld) [#/Vol] 300 10*3/uL 150-450 [facility] Potassium measurement (mass/ volume)Ordered By: Nando Wiggins on 08-27-2024 Potassium (Unsp spec) [Mass/Vol] 3.7 mmol/L 3.3-5.1 [facility] RBC Auto (Bld) [#/Vol]Ordere d By: Nando Wiggins on 08-27-2024 RBC (Bld) [#/Vol] 3.33 10*6/uL Low 4.6-6.2 [facility] Serum creatinine measurement (mass/volume)Ordered By: Nando Wiggins on 08-27-2024 Creatinine [Mass/Vol] 5.29 mg/dL High 0.70-1.20 [facility] Serum glucose measurement (m ass/volume)Ordered By: Nando Wiggins on 08-27-2024 Glucose [Mass/Vol] 261 mg/dL High 70-99 [facility] Serum or plasma calcium lilli urement (mass/volume)Ordered By: Nando Wiggins on 08-27-2024 Calcium [Mass/Vol] 8.8 mg/dL 7.6-11.0 [facility] Serum or plasma urea nitroge n measurement (mass/volume)Ordered By: Nando Wiggins on 08-27-2024 Urea nitrogen [Mass/Vol] 55 mg/dL High 4-19 [facility] Sodium levelOrdered By: Deb Wiggins on 08-27-2024 Sodium [Moles/Vol] 135 mmol/L 133-145 [facility] White blood cell (WBC) count Ordered By: Nando Wiggins on 08-27-2024 WBC (Bld) [#/Vol] 9.0 10*3/uL 4.4-11.0 [facility] Absolute lymphocyte countOrd ered By: Deblilian Brownedesiree on 08-20-2024 Lymphocytes Auto (Unsp spec) [#/Vol] 2.15 10*3/uL 0.83-4.51 [facility] Anion gap in Serum or Plasma Ordered By: Nando Edenlakshmidesiree on 08-20-2024 Anion gap [Moles/Vol] 15 mmol/L 5-15 [facility] Automated lymphocyte count a s percentage of total leukocytesOrdered By: Nando Wiggins on 08-20-2024 Lymphocytes/100 WBC Auto (Unsp spec) 25.2 % 19-41 [facility] BUN/creatinine ratioOrdered By: Nando Edenlakshmidesiree on 08-20-2024 Urea nitrogen/Creatinine [Mass ratio] 12.6 mg/mg 10-20 [facility] Basophil percentageOrdered B y: Debsrinathwolf Edenlakshmidesiree on 08-20-2024 Basophils/100 WBC (Bld) 0.8 % 0-1 [facility] Carbon dioxide, total [Moles /volume] in Central venous bloodOrdered By: Nando Edenlakshmidesiree on 08-20-2024 CO2 [Moles/Vol] 26.9 mmol/L 21.0-32.0 [facility] Chloride assayOrdered By: Kathie biancalilian Edenlakshmidesiree on 08-20-2024 Chloride [Moles/Vol] 93 mmol/L Low 98-108 [facility] Eosinophil percentageOrdered By: Kathiefili Edenlakshmidesiree on 08-20-2024 Eosinophils/100 WBC (Bld) 2.2 % 0-5 [facility] Erythrocyte distribution wid th ratioOrdered By: Deblilian Meeklakshmidesiree on 08-20-2024 Erythrocyte distribution width (RBC) [Ratio] 16.0 % High 11.6-14.6 [facility] Erythrocyte distribution wid th standard deviationOrdered By: Nando Wigigns on 08-20-2024 Erythrocyte distribution width (RBC) [Ratio] 54.5 fl High 35.1-43.9 [facility] Glomerular filtration rate ( GFR) estimation/1.73 sq m using serum, plasma, or whole bOrdered By: Nando Wiggins on 08-20-2024 GFR/1.73 sq M.predicted among non-blacks MDRD (S/P/Bld) [Vol rate/Area] 12 mL/min/{1.73_m2} Low >60 [facility] Hematocrit Auto (Bld) [Volum e fraction]Ordered By: Nando Wiggins on 08-20-2024 Hematocrit (Bld) [Volume fraction] 30.9 % Low 40-54 [facility] Hemoglobin measurementOrdere d By: Nando Wiggins on 08-20-2024 Hemoglobin (Bld) [Mass/Vol] 9.2 g/dL Low 13.0-16.5 [facility] Immature granulocytes/100 WB C Auto (Bld)Ordered By: fili Wiggins on 08-20-2024 Immature granulocytes/100 WBC (Bld) 0.800 % 0.0-0.9 [facility] MCV (mean corpuscular volume ) determinationOrdered By: Nando Wiggins on 08-20-2024 MCV (RBC) [Entitic vol] 92.2 fL 80-94 [facility] Mean corpuscular hemoglobin (MCH) determinationOrdered By: biancasaint louiswolf Wiggins on 08-20-2024 MCH (RBC) [Entitic mass] 27.5 pg 27.0-32.0 [facility] Monocyte percentageOrdered B y: Nando Wiggins on 08-20-2024 Monocytes/100 WBC (Bld) 8.3 % 0-10 [facility] Neutrophil percentageOrdered By: biancasaint louiswolf Wiggins on 08-20-2024 Neutrophils/100 WBC (Bld) 62.7 % 47-70 [facility] Platelet countOrdered By: Kathie Wiggins on 08-20-2024 Platelets (Bld) [#/Vol] 321 10*3/uL 150-450 [facility] Potassium measurement (mass/ volume)Ordered By: Nando Wiggins on 08-20-2024 Potassium (Unsp spec) [Mass/Vol] 4.1 mmol/L 3.3-5.1 [facility] RBC Auto (Bld) [#/Vol]Ordere d By: Nando Meekcheko on 08-20-2024 RBC (Bld) [#/Vol] 3.35 10*6/uL Low 4.6-6.2 [facility] Serum creatinine measurement (mass/volume)Ordered By: Nando Wiggins on 08-20-2024 Creatinine [Mass/Vol] 4.37 mg/dL High 0.70-1.20 [facility] Serum glucose measurement (m ass/volume)Ordered By: Nando Wiggins on 08-20-2024 Glucose [Mass/Vol] 85 mg/dL 70-99 [facility] Serum or plasma calcium lilli urement (mass/volume)Ordered By: Nando Wiggins on 08-20-2024 Calcium [Mass/Vol] 9.3 mg/dL 7.6-11.0 [facility] Serum or plasma urea nitroge n measurement (mass/volume)Ordered By: Nando Wiggins on 08-20-2024 Urea nitrogen [Mass/Vol] 55 mg/dL High 4-19 [facility] Sodium levelOrdered By: Deb quintana Meeklakshmidesiree on 08-20-2024 Sodium [Moles/Vol] 134 mmol/L 133-145 [facility] White blood cell (WBC) count Ordered By: Nando Wiggins on 08-20-2024 WBC (Bld) [#/Vol] 8.5 10*3/uL 4.4-11.0 [facility] Absolute lymphocyte countOrd ered By: Nando Wiggins on 08-13-2024 Lymphocytes Auto (Unsp spec) [#/Vol] 1.80 10*3/uL 0.83-4.51 [facility] Anion gap in Serum or Plasma Ordered By: Nando Edenlakshmidesiree on 08-13-2024 Anion gap [Moles/Vol] 15 mmol/L 5-15 [facility] Automated lymphocyte count a s percentage of total leukocytesOrdered By: Nando Wiggins on 08-13-2024 Lymphocytes/100 WBC Auto (Unsp spec) 22.5 % 19-41 [facility] BUN/creatinine ratioOrdered By: Nando Wiggins on 08-13-2024 Urea nitrogen/Creatinine [Mass ratio] 8.8 mg/mg Low 10-20 [facility] Basophil percentageOrdered B y: Nando Wiggins on 08-13-2024 Basophils/100 WBC (Bld) 0.5 % 0-1 [facility] Bilirubin directOrdered By: Nando Wiggins on 08-13-2024 Bilirubin.direct [Mass/Vol] mg/dL 0.00-0.30 [facility] Bilirubin, totalOrdered By: Nando Wiggins on 08-13-2024 Bilirubin [Mass/Vol] 0.25 mg/dL 0.00-1.30 [facility] Carbon dioxide, total [Moles /volume] in Central venous bloodOrdered By: Nando Wiggins on 08-13-2024 CO2 [Moles/Vol] 25.2 mmol/L 21.0-32.0 [facility] Chloride assayOrdered By: Kathie Wiggins on 08-13-2024 Chloride [Moles/Vol] 94 mmol/L Low 98-108 [facility] Eosinophil percentageOrdered By: Nando Wiggins on 08-13-2024 Eosinophils/100 WBC (Bld) 2.6 % 0-5 [facility] Erythrocyte distribution wid th ratioOrdered By: Nando Wiggins on 08-13-2024 Erythrocyte distribution width (RBC) [Ratio] 16.8 % High 11.6-14.6 [facility] Erythrocyte distribution wid th standard deviationOrdered By: Nando Wiggins on 08-13-2024 Erythrocyte distribution width (RBC) [Ratio] 57.7 fl High 35.1-43.9 [facility] Glomerular filtration rate ( GFR) estimation/1.73 sq m using serum, plasma, or whole bOrdered By: Nando Wiggins on 08-13-2024 GFR/1.73 sq M.predicted among non-blacks MDRD (S/P/Bld) [Vol rate/Area] 13 mL/min/{1.73_m2} Low >60 [facility] Hematocrit Auto (Bld) [Volum e fraction]Ordered By: Nando Wiggins on 08-13-2024 Hematocrit (Bld) [Volume fraction] 28.8 % Low 40-54 [facility] Hemoglobin A1c percentageOrd ered By: Nando Wiggins on 08-13-2024 HbA1c (Bld) [Mass fraction] 6.1 % >5.7 [facility] Hemoglobin measurementOrdere d By: Nando Wiggins on 08-13-2024 Hemoglobin (Bld) [Mass/Vol] 8.6 g/dL Low 13.0-16.5 [facility] Immature granulocytes/100 WB C Auto (Bld)Ordered By: Nando Wiggins on 08-13-2024 Immature granulocytes/100 WBC (Bld) 0.400 % 0.0-0.9 [facility] MCV (mean corpuscular volume ) determinationOrdered By: Nando Wiggins on 08-13-2024 MCV (RBC) [Entitic vol] 94.4 fL High 80-94 [facility] Mean corpuscular hemoglobin (MCH) determinationOrdered By: Nando Wiggins on 08-13-2024 MCH (RBC) [Entitic mass] 28.2 pg 27.0-32.0 [facility] Monocyte percentageOrdered B y: Nando Wiggins on 08-13-2024 Monocytes/100 WBC (Bld) 10.7 % High 0-10 [facility] Neutrophil percentageOrdered By: fili Wiggins on 08-13-2024 Neutrophils/100 WBC (Bld) 63.3 % 47-70 [facility] No Panel InformationOrdered By: Nando Wiggins on 08-13-2024 18 U/L <38 [facility] Platelet countOrdered By: Kathie Wiggins on 08-13-2024 Platelets (Bld) [#/Vol] 265 10*3/uL 150-450 [facility] Potassium measurement (mass/ volume)Ordered By: Nando Wiggins on 08-13-2024 Potassium (Unsp spec) [Mass/Vol] 3.9 mmol/L 3.3-5.1 [facility] RBC Auto (Bld) [#/Vol]Ordere d By: Nando Wiggins on 08-13-2024 RBC (Bld) [#/Vol] 3.05 10*6/uL Low 4.6-6.2 [facility] Serum creatinine measurement (mass/volume)Ordered By: Nando Wiggins on 08-13-2024 Creatinine [Mass/Vol] 4.28 mg/dL High 0.70-1.20 [facility] Serum globulin measurementOr dered By: Nando Wiggins on 08-13-2024 Globulin (S) [Mass/Vol] 3.8 g/dL 2.2-4.2 [facility] Serum glucose measurement (m ass/volume)Ordered By: Nando Wiggins on 08-13-2024 Glucose [Mass/Vol] 96 mg/dL 70-99 [facility] Serum or plasma alanine hawkins otransferase (ALT) measurementOrdered By: Nando Wiggins on 08-13-2024 ALT [Catalytic activity/Vol] 8 U/L <47 [facility] Serum or plasma albumin lilli urement (mass/volume)Ordered By: Nando Wiggins on 08-13-2024 Albumin [Mass/Vol] 2.8 g/dL Low 3.4-4.8 [facility] Serum or plasma alkaline penelope sphatase measurementOrdered By: Nando Wiggins on 08-13-2024 ALP [Catalytic activity/Vol] 56 U/L 40-129 [facility] Serum or plasma calcium lilli urement (mass/volume)Ordered By: Nando Wiggins on 08-13-2024 Calcium [Mass/Vol] 9.0 mg/dL 7.6-11.0 [facility] Serum or plasma urea nitroge n measurement (mass/volume)Ordered By: Nando Wiggins on 08-13-2024 Urea nitrogen [Mass/Vol] 38 mg/dL High 4-19 [facility] Sodium levelOrdered By: Deb Wiggins on 08-13-2024 Sodium [Moles/Vol] 134 mmol/L 133-145 [facility] Total proteinOrdered By: Sinan Wiggins on 08-13-2024 Protein [Mass/Vol] 6.6 g/dL 5.9-8.4 [facility] Vitamin B12 ser/plasOrdered By: Deblilian Meeklakshmidesiree on 08-13-2024 Cobalamin (Vitamin B12) [Mass/Vol] 782 pg/mL 180-914 [facility] White blood cell (WBC) count Ordered By: Debsrinathwolf Edenlakshmidesiree on 08-13-2024 WBC (Bld) [#/Vol] 8.0 10*3/uL 4.4-11.0 [facility] Absolute lymphocyte countOrd ered By: Debsrinathwolf Edenlakshmidesiree on 08-06-2024 Lymphocytes Auto (Unsp spec) [#/Vol] 1.82 10*3/uL 0.83-4.51 [facility] Anion gap in Serum or Plasma Ordered By: Debsrinathwolf Edenlakshmidesiree on 08-06-2024 Anion gap [Moles/Vol] 14 mmol/L 5-15 [facility] Automated lymphocyte count a s percentage of total leukocytesOrdered By: Debsrinathwolf Wiggins on 08-06-2024 Lymphocytes/100 WBC Auto (Unsp spec) 19.7 % 19-41 [facility] BUN/creatinine ratioOrdered By: Debsrinathwolf Edenlakshmidesiree on 08-06-2024 Urea nitrogen/Creatinine [Mass ratio] 11.0 mg/mg 10-20 [facility] Basophil percentageOrdered B y: Debsrinathwolf Edenlakshmidesiree on 08-06-2024 Basophils/100 WBC (Bld) 0.4 % 0-1 [facility] Carbon dioxide, total [Moles /volume] in Central venous bloodOrdered By: Debsrinathwolf Wiggins on 08-06-2024 CO2 [Moles/Vol] 26.0 mmol/L 21.0-32.0 [facility] Chloride assayOrdered By: Kathie biancalilian Wiggins on 08-06-2024 Chloride [Moles/Vol] 92 mmol/L Low 98-108 [facility] Eosinophil percentageOrdered By: Nando Wiggins on 08-06-2024 Eosinophils/100 WBC (Bld) 2.6 % 0-5 [facility] Erythrocyte distribution wid th ratioOrdered By: Nando Wiggins on 08-06-2024 Erythrocyte distribution width (RBC) [Ratio] 16.6 % High 11.6-14.6 [facility] Erythrocyte distribution wid th standard deviationOrdered By: Nando Wiggins on 08-06-2024 Erythrocyte distribution width (RBC) [Ratio] 56.6 fl High 35.1-43.9 [facility] Glomerular filtration rate ( GFR) estimation/1.73 sq m using serum, plasma, or whole bOrdered By: Nando Wiggins on 08-06-2024 GFR/1.73 sq M.predicted among non-blacks MDRD (S/P/Bld) [Vol rate/Area] 12 mL/min/{1.73_m2} Low >60 [facility] Hematocrit Auto (Bld) [Volum e fraction]Ordered By: Nando Wiggins on 08-06-2024 Hematocrit (Bld) [Volume fraction] 27.3 % Low 40-54 [facility] Hemoglobin measurementOrdere d By: Nando Wiggins on 08-06-2024 Hemoglobin (Bld) [Mass/Vol] 8.1 g/dL Low 13.0-16.5 [facility] Immature granulocytes/100 WB C Auto (Bld)Ordered By: Nando Wiggins on 08-06-2024 Immature granulocytes/100 WBC (Bld) 1.000 % High 0.0-0.9 [facility] MCV (mean corpuscular volume ) determinationOrdered By: Nando Wiggins on 08-06-2024 MCV (RBC) [Entitic vol] 93.5 fL 80-94 [facility] Mean corpuscular hemoglobin (MCH) determinationOrdered By: Nando Wiggins on 08-06-2024 MCH (RBC) [Entitic mass] 27.7 pg 27.0-32.0 [facility] Monocyte percentageOrdered B y: Nando Wiggins on 08-06-2024 Monocytes/100 WBC (Bld) 12.1 % High 0-10 [facility] Neutrophil percentageOrdered By: Nando Wiggins on 08-06-2024 Neutrophils/100 WBC (Bld) 64.2 % 47-70 [facility] Platelet countOrdered By: Kathie Wgigins on 08-06-2024 Platelets (Bld) [#/Vol] 263 10*3/uL 150-450 [facility] Potassium measurement (mass/ volume)Ordered By: Nando Wiggins on 08-06-2024 Potassium (Unsp spec) [Mass/Vol] 3.4 mmol/L 3.3-5.1 [facility] RBC Auto (Bld) [#/Vol]Ordere d By: Nando Wiggins on 08-06-2024 RBC (Bld) [#/Vol] 2.92 10*6/uL Low 4.6-6.2 [facility] Serum creatinine measurement (mass/volume)Ordered By: Nando Wiggins on 08-06-2024 Creatinine [Mass/Vol] 4.43 mg/dL High 0.70-1.20 [facility] Serum glucose measurement (m ass/volume)Ordered By: Nando Meekcheko on 08-06-2024 Glucose [Mass/Vol] 318 mg/dL High 70-99 [facility] Serum or plasma calcium lilli urement (mass/volume)Ordered By: Nando Wiggins on 08-06-2024 Calcium [Mass/Vol] 8.7 mg/dL 7.6-11.0 [facility] Serum or plasma urea nitroge n measurement (mass/volume)Ordered By: Nando Wiggins on 08-06-2024 Urea nitrogen [Mass/Vol] 49 mg/dL High 4-19 [facility] Sodium levelOrdered By: Deb Wiggins on 08-06-2024 Sodium [Moles/Vol] 131 mmol/L Low 133-145 [facility] White blood cell (WBC) count Ordered By: Nando Wiggins on 08-06-2024 WBC (Bld) [#/Vol] 9.3 10*3/uL 4.4-11.0 [facility] Absolute lymphocyte countOrd ered By: Des Garcia on 08-01-2024 Lymphocytes Auto (Unsp spec) [#/Vol] 1.79 10*3/uL 0.83-4.51 [facility] Automated blood erythrocyte countOrdered By: Des Garcia on 08-01-2024 RBC (Bld) [#/Vol] 2.95 10*6/uL Low 4.6-6.2 [facility] Comment on above: Performed By: #### L 100.0100 ####[facility] [address] [place], [place], [id number] Automated blood hematocrit ( percentage)Ordered By: Des Garcia on 08-01-2024 Hematocrit (Bld) [Volume fraction] 27.6 % Low 40-54 [facility] Comment on above: Performed By: #### L 100.0100 ####[facility] [address] [place], [place], [phone] Automated lymphocyte count a s percentage of total leukocytesOrdered By: Des Garcia on 08-01-2024 Lymphocytes/100 WBC Auto (Unsp spec) 20.9 % 19-41 [facility] Basophil percentageOrdered B y: Des Garcia on 08-01-2024 Basophils/100 WBC (Bld) 0.7 % Normal 0-1 [facility] Comment on above: Performed By: #### L 100.0100 ####[facility] [address] [place], [place], [phone] CBC W/Diff, Automatedon - Absolute Lymph 1.79 X10 3/uL Normal 0.83-4.51 [facility] Comment on above: Performed By: #### L 100.0100 ####[facility] [address] [place], [place], [phone] Absolute Neut 5.3 X10 3/uL Normal 2.0-7.7 [facility] Comment on above: Performed By: #### L 100.0100 ####[facility] [address] [place], [place], [phone] IG% 0.500 Normal 0.0-0.9 [facility] Comment on above: Result Comment: IG% - Immature Granulocytes (promyelocytes, myelocytes andmetamyelocytes) > 1% indicates that a LEFT SHIFT is Present. Performed By: #### L 100.0100 ####[facility] [address] [place], [address] Lymphocytes/100 WBC (Bld) 20.9 % Normal 19-41 [facility] Comment on above: Performed By: #### L 100.0100 ####[facility] [address] [place], [address] MCHC (RBC) [Mass/Vol] 29.3 g/dL Low 32-36 [facility] Comment on above: Performed By: #### L 100.0100 ####[facility] [address] [place], [address] Nucleated RBC (Bld) [#/Vol] 0 10*3/uL Normal 0-5 [facility] Comment on above: Performed By: #### L 100.0100 ####[facility] [address] [place], [address] Platelet mean volume (Bld) [Entitic vol] 10.6 fL Normal 6.2-12.0 [facility] Comment on above: Performed By: #### L 100.0100 ####[facility] [address] [place], [address] RDW SD 57.8 fl High 35.1-43.9 [facility] Comment on above: Performed By: #### L 100.0100 ####[facility] [address] [place], [address] Emergency Department Summary on 08-01-2024 Emergency Department Summary Normal [facility] Eosinophil percentageOrdered By: Des Garcia on 08-01-2024 Eosinophils/100 WBC (Bld) 3.9 % Normal 0-5 [facility] Comment on above: Performed By: #### L 100.0100 ####[facility] [address] [place], [place], [phone] Erythrocyte distribution wid th ratioOrdered By: Des Garcai on 08-01-2024 Erythrocyte distribution width (RBC) [Ratio] 16.9 % High 11.6-14.6 [facility] Comment on above: Performed By: #### L 100.0100 ####[facility] [address] [place], [phone] Erythrocyte distribution wid th standard deviationOrdered By: Des Garcia on 08-01-2024 Erythrocyte distribution width (RBC) [Ratio] 57.8 fl High 35.1-43.9 [facility] Foot min 3 Viewson 5 Foot min 3 Views Normal [facility] Hemoglobin measurementOrdere d By: Des Garcia on 08-01-2024 Hemoglobin (Bld) [Mass/Vol] 8.1 g/dL Low 13.0-16.5 [facility] Comment on above: Performed By: #### L 100.0100 ####[facility] [address] [place], [address] Immature granulocytes/100 WB C Auto (Bld)Ordered By: Des Garcia on 08-01-2024 Immature granulocytes/100 WBC (Bld) 0.500 % 0.0-0.9 [facility] MCV (mean corpuscular volume ) determinationOrdered By: Des Garcia on 08-01-2024 MCV (RBC) [Entitic vol] 93.6 fL Normal 80-94 [facility] Comment on above: Performed By: #### L 100.0100 ####[facility] [address] [place], [address] Mean corpuscular hemoglobin (MCH) determinationOrdered By: Des Garcia on 08-01-2024 MCH (RBC) [Entitic mass] 27.5 pg Normal 27.0-32.0 [facility] Comment on above: Performed By: #### L 100.0100 ####[facility] [address] [place], [address] Monocyte percentageOrdered B y: Des Garcia on 08-01-2024 Monocytes/100 WBC (Bld) 12.3 % High 0-10 [facility] Comment on above: Performed By: #### L 100.0100 ####[facility] [address] [place], [address] Neutrophil percentageOrdered By: eDs Garcia on 08-01-2024 Neutrophils/100 WBC (Bld) 61.7 % Normal 47-70 [facility] Comment on above: Performed By: #### L 100.0100 ####[facility] [address] [place], [address] Platelet countOrdered By: Kana Garcia on 08-01-2024 Platelets (Bld) [#/Vol] 290 10*3/uL Normal 150-450 [facility] Comment on above: Performed By: #### L 100.0100 ####[facility] [address] [place], [address] White blood cell (WBC) count Ordered By: Des Garcia on 08-01-2024 WBC (Bld) [#/Vol] 8.6 10*3/uL Normal 4.4-11.0 [facility] Comment on above: Performed By: #### L 100.0100 ####[facility] [address] [place], [address] Absolute lymphocyte countOrd ered By: Nando Wiggins on 07-30-2024 Lymphocytes Auto (Unsp spec) [#/Vol] 1.74 10*3/uL 0.83-4.51 [facility] Anion gap in Serum or Plasma Ordered By: Nando Wiggins on 07-30-2024 Anion gap [Moles/Vol] 16 mmol/L High 5-15 [facility] Automated lymphocyte count a s percentage of total leukocytesOrdered By: Nando Wiggins on 07-30-2024 Lymphocytes/100 WBC Auto (Unsp spec) 19.2 % 19-41 [facility] BUN/creatinine ratioOrdered By: Nando Wiggins on 07-30-2024 Urea nitrogen/Creatinine [Mass ratio] 8.4 mg/mg Low 10-20 [facility] Basophil percentageOrdered B y: Nando Wiggins on 07-30-2024 Basophils/100 WBC (Bld) 0.6 % 0-1 [facility] Carbon dioxide, total [Moles /volume] in Central venous bloodOrdered By: Nando Wiggins on 07-30-2024 CO2 [Moles/Vol] 26.4 mmol/L 21.0-32.0 [facility] Chloride assayOrdered By: Kathie Wiggins on 07-30-2024 Chloride [Moles/Vol] 91 mmol/L Low 98-108 [facility] Eosinophil percentageOrdered By: Nando Wiggins on 07-30-2024 Eosinophils/100 WBC (Bld) 2.8 % 0-5 [facility] Erythrocyte distribution wid th ratioOrdered By: Nando Wiggins on 07-30-2024 Erythrocyte distribution width (RBC) [Ratio] 17.2 % High 11.6-14.6 [facility] Erythrocyte distribution wid th standard deviationOrdered By: Nando Wiggins on 07-30-2024 Erythrocyte distribution width (RBC) [Ratio] 58.1 fl High 35.1-43.9 [facility] Glomerular filtration rate ( GFR) estimation/1.73 sq m using serum, plasma, or whole bOrdered By: Nando Wiggins on 07-30-2024 GFR/1.73 sq M.predicted among non-blacks MDRD (S/P/Bld) [Vol rate/Area] 13 mL/min/{1.73_m2} Low >60 [facility] Hematocrit Auto (Bld) [Volum e fraction]Ordered By: Nando Wiggins on 07-30-2024 Hematocrit (Bld) [Volume fraction] 26.5 % Low 40-54 [facility] Hemoglobin measurementOrdere d By: Nando Wigigns on 07-30-2024 Hemoglobin (Bld) [Mass/Vol] 8.1 g/dL Low 13.0-16.5 [facility] Immature granulocytes/100 WB C Auto (Bld)Ordered By: Nando Wiggins on 07-30-2024 Immature granulocytes/100 WBC (Bld) 0.800 % 0.0-0.9 [facility] MCV (mean corpuscular volume ) determinationOrdered By: Nando Wiggins on 07-30-2024 MCV (RBC) [Entitic vol] 92.3 fL 80-94 [facility] Mean corpuscular hemoglobin (MCH) determinationOrdered By: Nando Wiggins on 07-30-2024 MCH (RBC) [Entitic mass] 28.2 pg 27.0-32.0 [facility] Monocyte percentageOrdered B y: Nando Wiggins on 07-30-2024 Monocytes/100 WBC (Bld) 9.2 % 0-10 [facility] Neutrophil percentageOrdered By: Nando Wiggins on 07-30-2024 Neutrophils/100 WBC (Bld) 67.4 % 47-70 [facility] Platelet countOrdered By: Kathie rehanwolf Wiggins on 07-30-2024 Platelets (Bld) [#/Vol] 334 10*3/uL 150-450 [facility] Potassium measurement (mass/ volume)Ordered By: Nando Wiggins on 07-30-2024 Potassium (Unsp spec) [Mass/Vol] 3.6 mmol/L 3.3-5.1 [facility] RBC Auto (Bld) [#/Vol]Ordere d By: Nando Wiggins on 07-30-2024 RBC (Bld) [#/Vol] 2.87 10*6/uL Low 4.6-6.2 [facility] Serum creatinine measurement (mass/volume)Ordered By: Nando Wiggins on 07-30-2024 Creatinine [Mass/Vol] 4.20 mg/dL High 0.70-1.20 [facility] Serum glucose measurement (m ass/volume)Ordered By: Nando Wiggins on 07-30-2024 Glucose [Mass/Vol] 173 mg/dL High 70-99 [facility] Serum or plasma calcium lilli urement (mass/volume)Ordered By: Nando Wiggins on 07-30-2024 Calcium [Mass/Vol] 8.5 mg/dL 7.6-11.0 [facility] Serum or plasma urea nitroge n measurement (mass/volume)Ordered By: Nando Wiggins on 07-30-2024 Urea nitrogen [Mass/Vol] 35 mg/dL High 4-19 [facility] Sodium levelOrdered By: Deb Wiggins on 07-30-2024 Sodium [Moles/Vol] 133 mmol/L 133-145 [facility] White blood cell (WBC) count Ordered By: Nando Wiggins on 07-30-2024 WBC (Bld) [#/Vol] 9.1 10*3/uL 4.4-11.0 [facility] Acid Fast Bacillus Cultureon 07-25-2024 tAFBC Normal [facility] Comment on above: Performed By: #### M 100.3000, M600.2200, M300.2000, M100.4001, M300.3000, M100.2000, M600.1999 ####[facility] [address] [place], [place], [address] Acid Fast Bacillus Smear/Flu oron 07-25-2024 tafb Normal [facility] Comment on above: Performed By: #### M 100.3000, M600.2200, M300.2000, M100.4001, M300.3000, M100.2000, M600.2000 ####[facility] [address] [place], [place], [address] Culture, Fungus 8482on 07-25 CUF Normal [facility] Comment on above: Performed By: #### M 100.3000, M600.2200, M300.2000, M100.4001, M300.3000, M100.2000, M600.2000 ####[facility] [address] [place], [address] Fungus Stain 8136on 07-26-19 25 FUNST Normal [facility] Comment on above: Performed By: #### M 100.3000, M600.2200, M300.2000, M100.4001, M300.3000, M100.2000, M600.2000 ####[facility] [address] [place], [address] Absolute lymphocyte countOrd ered By: Kathiefili Wiggins on 07-23-2024 Lymphocytes Auto (Unsp spec) [#/Vol] 2.13 10*3/uL 0.83-4.51 [facility] Automated lymphocyte count a s percentage of total leukocytesOrdered By: Nando Wiggins on 07-23-2024 Lymphocytes/100 WBC Auto (Unsp spec) 17.3 % Low 19-41 [facility] BUN/creatinine ratioOrdered By: Kathiebiancasrinathwolf Wiggins on 07-23-2024 Urea nitrogen/Creatinine [Mass ratio] 14.6 mg/mg 10- [facility] Basic Metabolic Profile (BMP )on 07-23-2024 BUN Normal 7-18 [facility] Comment on above: Result Comment: Canc elled via OM: Order cancelled - Patient discharged Performed By: #### L 100.0100, L500.2500 ####[facility] [address] [place], [address] BUN/CRE Normal 10-20 [facility] Comment on above: Result Comment: Canc elled via OM: Order cancelled - Patient discharged Performed By: #### L 100.0100, L500.2500 ####[facility] [address] [place], [address] Calcium Normal 8.5-10.1 [facility] Comment on above: Result Comment: Canc elled via OM: Order cancelled - Patient discharged Performed By: #### L 100.0100, L500.2500 ####[facility] [address] [place], [address] CL Normal 98-107 [facility] Comment on above: Result Comment: Canc elled via OM: Order cancelled - Patient discharged Performed By: #### L 100.0100, L500.2500 ####[facility] [address] [place], [address] CO2 Normal 21.0-32.0 [facility] Comment on above: Result Comment: Canc elled via OM: Order cancelled - Patient discharged Performed By: #### L 100.0100, L500.2500 ####[facility] [address] [place], [address] CREAT,SERUM Normal 0.70-1.30 [facility] Comment on above: Result Comment: Canc elled via OM: Order cancelled - Patient discharged Performed By: #### L 100.0100, L500.2500 ####[facility] [address] [place], [address] eGFR Normal >60 [facility] Comment on above: Result Comment: Canc elled via OM: Order cancelled - Patient discharged Performed By: #### L 100.0100, L500.2500 ####[facility] [address] [place], [address] EST GFR - AA Normal >60 [facility] Comment on above: Result Comment: Canc elled via OM: Order cancelled - Patient discharged Performed By: #### L 100.0100, L500.2500 ####[facility] [address] [place], [address] GAP Normal 5-15 [facility] Comment on above: Result Comment: Canc elled via OM: Order cancelled - Patient discharged Performed By: #### L 100.0100, L500.2500 ####[facility] [address] [place], [address] GLU Normal 74-106 [facility] Comment on above: Result Comment: Canc elled via OM: Order cancelled - Patient discharged Performed By: #### L 100.0100, L500.2500 ####[facility] [address] [place], [address] Potassium Normal 3.5-5.1 [facility] Comment on above: Result Comment: Canc elled via OM: Order cancelled - Patient discharged Performed By: #### L 100.0100, L500.2500 ####[facility] [address] [place], [address] Basic Metabolic Profile (BMP) Normal 136-145 [facility] Comment on above: Result Comment: Canc elled via OM: Order cancelled - Patient discharged Performed By: #### L 100.0100, L500.2500 ####[facility] [address] [place], [address] Basophil percentageOrdered B y: Nando Wiggins on 07-23-2024 Basophils/100 WBC (Bld) 0.7 % 0-1 [facility] CBC W/Diff, Automatedon 03-0 Absolute Neut Normal 2.0-7.7 [facility] Comment on above: Result Comment: Canc elled via OM: Order cancelled - Patient discharged Performed By: #### L 100.0100, L500.2500 ####[facility] [address] [place], [address] HCT Normal 40-54 [facility] Comment on above: Result Comment: Canc elled via OM: Order cancelled - Patient discharged Performed By: #### L 100.0100, L500.2500 ####[facility] [address] [place], [address] HGB Normal 13.0-16.5 [facility] Comment on above: Result Comment: Canc elled via OM: Order cancelled - Patient discharged Performed By: #### L 100.0100, L500.2500 ####[facility] [address] [place], [address] MCH Normal 27.0-32.0 [facility] Comment on above: Result Comment: Canc elled via OM: Order cancelled - Patient discharged Performed By: #### L 100.0100, L500.2500 ####[facility] [address] [place], [address] MCHC Normal 32-36 [facility] Comment on above: Result Comment: Canc elled via OM: Order cancelled - Patient discharged Performed By: #### L 100.0100, L500.2500 ####[facility] [address] [place], [address] MCV Normal 80-94 [facility] Comment on above: Result Comment: Canc elled via OM: Order cancelled - Patient discharged Performed By: #### L 100.0100, L500.2500 ####[facility] [address] [place], [address] NEUT% Normal 47-70 [facility] Comment on above: Result Comment: Canc elled via OM: Order cancelled - Patient discharged Performed By: #### L 100.0100, L500.2500 ####[facility] [address] [place], [address] PLT Normal 150-450 [facility] Comment on above: Result Comment: Canc elled via OM: Order cancelled - Patient discharged Performed By: #### L 100.0100, L500.2500 ####[facility] [address] [place], [address] RBC Normal 4.6-6.2 [facility] Comment on above: Result Comment: Canc elled via OM: Order cancelled - Patient discharged Performed By: #### L 100.0100, L500.2500 ####[facility] [address] [place], [address] RDW CV Normal 11.6-14.6 [facility] Comment on above: Result Comment: Canc elled via OM: Order cancelled - Patient discharged Performed By: #### L 100.0100, L500.2500 ####[facility] [address] [place], [address] RDW SD Normal 35.1-43.9 [facility] Comment on above: Result Comment: Canc elled via OM: Order cancelled - Patient discharged Performed By: #### L 100.0100, L500.2500 ####[facility] [address] [place], [address] WBC Normal 4.4-11.0 [facility] Comment on above: Result Comment: Canc elled via OM: Order cancelled - Patient discharged Performed By: #### L 100.0100, L500.2500 ####[facility] [address] [place], [address] Carbon dioxide measurementOr dered By: Nando Wiggins on 07-23-2024 CO2 [Moles/Vol] 27.0 mmol/L 22.0-29.0 [facility] Chloride measurementOrdered By: Nando Wiggins on 07-23-2024 Chloride [Moles/Vol] 95 mmol/L Low 96-108 [facility] Comprehensive Metabolic Prof ilon 07-23-2024 ALB Normal 3.4-4.8 [facility] Comment on above: Result Comment: NOT DRAWN PATIENT DIDN'T COME TO LAB Performed By: #### L 500.4050 ####[facility] [address] [place], [address] ALK PHOS Normal 40-129 [facility] Comment on above: Result Comment: NOT DRAWN PATIENT DIDN'T COME TO LAB Performed By: #### L 500.4050 ####[facility] [address] [place], [address] ALT Normal <=46 [facility] Comment on above: Result Comment: NOT DRAWN PATIENT DIDN'T COME TO LAB Performed By: #### L 500.4050 ####[facility] [address] [place], [address] Anion Gap Normal 5-15 [facility] Comment on above: Result Comment: NOT DRAWN PATIENT DIDN'T COME TO LAB Performed By: #### L 500.4050 ####[facility] [address] [place], [address] AST Normal <=37 [facility] Comment on above: Result Comment: NOT DRAWN PATIENT DIDN'T COME TO LAB Performed By: #### L 500.4050 ####[facility] [address] [place], [address] Chloride Normal 96-108 [facility] Comment on above: Result Comment: NOT DRAWN PATIENT DIDN'T COME TO LAB Performed By: #### L 500.4050 ####[facility] [address] [place], [address] Sodium Normal 133-145 [facility] Comment on above: Result Comment: NOT DRAWN PATIENT DIDN'T COME TO LAB Performed By: #### L 500.4050 ####[facility] [address] [place], [address] T BILI Normal 0.00-1.30 [facility] Comment on above: Result Comment: NOT DRAWN PATIENT DIDN'T COME TO LAB Performed By: #### L 500.4050 ####[facility] [address] [place], [address] T PROT Normal 5.9-8.4 [facility] Comment on above: Result Comment: NOT DRAWN PATIENT DIDN'T COME TO LAB Performed By: #### L 500.4050 ####[facility] [address] [place], [address] Culture, Anaerobic Any Sourc reed 07-23-2024 CUAN Normal [facility] Comment on above: Performed By: #### M 100.2910, M100.4001, M100.1999 ####[facility] [address] [place], [address] Eosinophil percentageOrdered By: Nando Wiggins on 07-23-2024 Eosinophils/100 WBC (Bld) 1.3 % 0-5 [facility] Erythrocyte distribution wid th ratioOrdered By: [facility] Carrolltonwolf W[facility] on 07-23-2024 Erythrocyte distribution width (RBC) [Ratio] 17.1 % High 11.6-14.6 [facility] Erythrocyte distribution wid th standard deviationOrdered By: [facility] Carrolltonwolf Wiggins on 07-23-2024 Erythrocyte distribution width (RBC) [Ratio] 58.3 fl High 35.1-43.9 [facility] Glomerular filtration rate ( GFR) estimation/1.73 sq m using serum, plasma, or whole bOrdered By: [facility] Carrolltonwolf Wiggins on 07-23-2024 GFR/1.73 sq M.predicted among non-blacks MDRD (S/P/Bld) [Vol rate/Area] 13 mL/min/{1.73_m2} Low >60 [facility] Hematocrit Auto (Bld) [Volum e fraction]Ordered By: [facility]tonwolf Wiggins on 07-23-2024 Hematocrit (Bld) [Volume fraction] 26.1 % Low 40-54 [facility] Hemoglobin measurementOrdere d By: biancasaint louiswolf Wiggins on 07-23-2024 Hemoglobin (Bld) [Mass/Vol] 7.8 g/dL Low 13.0-16.5 [facility] Immature granulocytes/100 WB C Auto (Bld)Ordered By: Nando Wiggins on 07-23-2024 Immature granulocytes/100 WBC (Bld) 2.100 % High 0.0-0.9 [facility] MCV (mean corpuscular volume ) determinationOrdered By: Nando Wiggins on 07-23-2024 MCV (RBC) [Entitic vol] 93.5 fL 80-94 [facility] Mean corpuscular hemoglobin (MCH) determinationOrdered By: biancasaint louiswolf Wiggins on 07-23-2024 MCH (RBC) [Entitic mass] 28.0 pg 27.0-32.0 [facility] Monocyte percentageOrdered B y: Debsrinathwolf Wiggins on 07-23-2024 Monocytes/100 WBC (Bld) 7.7 % 0-10 [facility] Neutrophil percentageOrdered By: Debsrinathwolf Wiggins on 07-23-2024 Neutrophils/100 WBC (Bld) 70.9 % High 47-70 [facility] Platelet countOrdered By: Kathie biancalilian Wiggins on 07-23-2024 Platelets (Bld) [#/Vol] 451 10*3/uL High 150-450 [facility] RBC Auto (Bld) [#/Vol]Ordere d By: Nando Wiggins on 07-23-2024 RBC (Bld) [#/Vol] 2.79 10*6/uL Low 4.6-6.2 [facility] Serum creatinine measurement (mass/volume)Ordered By: Nando Wiggins on 07-23-2024 Creatinine [Mass/Vol] 4.11 mg/dL High 0.70-1.20 [facility] Serum glucose measurement (m ass/volume)Ordered By: Nando Wiggins on 07-23-2024 Glucose [Mass/Vol] 147 mg/dL High 70-99 [facility] Serum or plasma anion gap de termination (moles/volume)Ordered By: Nando Wiggins on 07-23-2024 Anion gap [Moles/Vol] 12 mmol/L 5-15 [facility] Serum or plasma calcium lilli urement (mass/volume)Ordered By: Nando Wiggins on 07-23-2024 Calcium [Mass/Vol] 8.4 mg/dL 7.6-11.0 [facility] Serum or plasma potassium me asurementOrdered By: Nando Wiggins on 07-23-2024 Potassium [Moles/Vol] 5.0 mmol/L 3.3-5.1 [facility] Serum or plasma sodium measu rement (moles/volume)Ordered By: Nando Wiggins on 07-23-2024 Sodium [Moles/Vol] 134 mmol/L 133-145 [facility] Serum or plasma urea nitroge n measurement (mass/volume)Ordered By: Nando Wiggins on 07-23-2024 Urea nitrogen [Mass/Vol] 60 mg/dL High 4-19 [facility] White blood cell (WBC) count Ordered By: Nando Wiggins on 07-23-2024 WBC (Bld) [#/Vol] 12.3 10*3/uL High 4.4-11.0 [facility] Wound Ctr History AND Physic ariella 07-23-2024 Wound Ctr History & Physical Normal [facility] Basic Metabolic Profile (BMP )on 07-22-2024 CL Normal 98-107 [facility] Comment on above: Result Comment: Canc elled via OM: Order cancelled - Patient discharged Performed By: #### L 100.0100, L500.2500 ####[facility] [address] [place], [address] EST GFR - AA Normal >60 [facility] Comment on above: Result Comment: Canc elled via OM: Order cancelled - Patient discharged Performed By: #### L 100.0100, L500.2500 ####[facility] [address] [place], [address] GAP Normal 5-15 [facility] Comment on above: Result Comment: Canc elled via OM: Order cancelled - Patient discharged Performed By: #### L 100.0100, L500.2500 ####[facility] [address] [place], [address] Basic Metabolic Profile (BMP) Normal 136-145 [facility] Comment on above: Result Comment: Canc elled via OM: Order cancelled - Patient discharged Performed By: #### L 100.0100, L500.2500 ####[facility] [address] [place], [address] CBC W/Diff, Automatedon Absolute Neut Normal 2.0-7.7 [facility] Comment on above: Result Comment: Canc elled via OM: Order cancelled - Patient discharged Performed By: #### L 100.0100, L500.2500 ####[facility] [address] [place], [address] HCT Normal 40-54 [facility] Comment on above: Result Comment: Canc elled via OM: Order cancelled - Patient discharged Performed By: #### L 100.0100, L500.2500 ####[facility] [address] [place], [address] HGB Normal 13.0-16.5 [facility] Comment on above: Result Comment: Canc elled via OM: Order cancelled - Patient discharged Performed By: #### L 100.0100, L500.2500 ####[facility] [address] [place], [address] MCH Normal 27.0-32.0 [facility] Comment on above: Result Comment: Canc elled via OM: Order cancelled - Patient discharged Performed By: #### L 100.0100, L500.2500 ####[facility] [address] [place], [address] MCHC Normal 32-36 [facility] Comment on above: Result Comment: Canc elled via OM: Order cancelled - Patient discharged Performed By: #### L 100.0100, L500.2500 ####[facility] [address] [place], [address] MCV Normal 80-94 [facility] Comment on above: Result Comment: Canc elled via OM: Order cancelled - Patient discharged Performed By: #### L 100.0100, L500.2500 ####[facility] [address] [place], [address] NEUT% Normal 47-70 [facility] Comment on above: Result Comment: Canc elled via OM: Order cancelled - Patient discharged Performed By: #### L 100.0100, L500.2500 ####[facility] [address] [place], [address] PLT Normal 150-450 [facility] Comment on above: Result Comment: Canc elled via OM: Order cancelled - Patient discharged Performed By: #### L 100.0100, L500.2500 ####[facility] [address] [place], [address] RBC Normal 4.6-6.2 [facility] Comment on above: Result Comment: Canc elled via OM: Order cancelled - Patient discharged Performed By: #### L 100.0100, L500.2500 ####[facility] [address] [place], [address] RDW CV Normal 11.6-14.6 [facility] Comment on above: Result Comment: Canc elled via OM: Order cancelled - Patient discharged Performed By: #### L 100.0100, L500.2500 ####[facility] [address] [place], [address] RDW SD Normal 35.1-43.9 [facility] Comment on above: Result Comment: Canc elled via OM: Order cancelled - Patient discharged Performed By: #### L 100.0100, L500.2500 ####[facility] [address] [place], [address] WBC Normal 4.4-11.0 [facility] Comment on above: Result Comment: Canc elled via OM: Order cancelled - Patient discharged Performed By: #### L 100.0100, L500.2500 ####[facility] [address] [place], [address] Comprehensive Metabolic Prof ilon 07-22-2024 BUN Normal 7-18 [facility] Comment on above: Result Comment: NOT DRAWN PATIENT DIDN'T COME TO LAB Performed By: #### L 500.4050 ####[facility] [address] [place], [address] Result Comment: Canc elled via OM: Order cancelled - Patient discharged Performed By: #### L 100.0100, L500.2500 ####[facility] [address] [place], [address] BUN/CRE Normal 10-20 [facility] Comment on above: Result Comment: NOT DRAWN PATIENT DIDN'T COME TO LAB Performed By: #### L 500.4050 ####[facility] [address] [place], [address] Result Comment: Canc elled via OM: Order cancelled - Patient discharged Performed By: #### L 100.0100, L500.2500 ####[facility] [address] [place], [address] Calcium Normal 8.5-10.1 [facility] Comment on above: Result Comment: NOT DRAWN PATIENT DIDN'T COME TO LAB Performed By: #### L 500.4050 ####[facility] [address] [place], [address] Result Comment: Canc elled via OM: Order cancelled - Patient discharged Performed By: #### L 100.0100, L500.2500 ####[facility] [address] [place], [address] CO2 Normal 21.0-32.0 [facility] Comment on above: Result Comment: NOT DRAWN PATIENT DIDN'T COME TO LAB Performed By: #### L 500.4050 ####[facility] [address] [place], [address] Result Comment: Canc elled via OM: Order cancelled - Patient discharged Performed By: #### L 100.0100, L500.2500 ####[facility] [address] [place], [address] CREAT,SERUM Normal 0.70-1.30 [facility] Comment on above: Result Comment: NOT DRAWN PATIENT DIDN'T COME TO LAB Performed By: #### L 500.4050 ####[facility] [address] [place], [address] Result Comment: Canc elled via OM: Order cancelled - Patient discharged Performed By: #### L 100.0100, L500.2500 ####[facility] [address] [place], [address] eGFR Normal >60 [facility] Comment on above: Result Comment: NOT DRAWN PATIENT DIDN'T COME TO LAB Performed By: #### L 500.4050 ####[facility] [address] [place], [address] Result Comment: Canc elled via OM: Order cancelled - Patient discharged Performed By: #### L 100.0100, L500.2500 ####[facility] [address] [place], [address] GLU Normal 74-106 [facility] Comment on above: Result Comment: NOT DRAWN PATIENT DIDN'T COME TO LAB Performed By: #### L 500.4050 ####[facility] [address] [place], [address] Result Comment: Canc elled via OM: Order cancelled - Patient discharged Performed By: #### L 100.0100, L500.2500 ####[facility] [address] [place], [address] Potassium Normal 3.5-5.1 [facility] Comment on above: Result Comment: NOT DRAWN PATIENT DIDN'T COME TO LAB Performed By: #### L 500.4050 ####[facility] [address] [place], [address] Result Comment: Canc elled via OM: Order cancelled - Patient discharged Performed By: #### L 100.0100, L500.2500 ####[facility] [address] [place], [address] Culture, Blood (WB)on 2024 CUB No growth in 5 days. Normal [facility] Comment on above: Performed By: #### M 200.1000 ####[facility] [address] [place], [address] Basic Metabolic Profile (BMP )on 07-21-2024 BUN Normal 7-18 [facility] Comment on above: Result Comment: Canc elled via OM: Order cancelled - Patient discharged Performed By: #### L 100.0100, L500.2500 ####[facility] [address] [place], [address] BUN/CRE Normal 10-20 [facility] Comment on above: Result Comment: Canc elled via OM: Order cancelled - Patient discharged Performed By: #### L 100.0100, L500.2500 ####[facility] [address] [place], [address] Calcium Normal 8.5-10.1 [facility] Comment on above: Result Comment: Canc elled via OM: Order cancelled - Patient discharged Performed By: #### L 100.0100, L500.2500 ####[facility] [address] [place], [address] CL Normal 98-107 [facility] Comment on above: Result Comment: Canc elled via OM: Order cancelled - Patient discharged Performed By: #### L 100.0100, L500.2500 ####[facility] [address] [place], [address] CO2 Normal 21.0-32.0 [facility] Comment on above: Result Comment: Canc elled via OM: Order cancelled - Patient discharged Performed By: #### L 100.0100, L500.2500 ####[facility] [address] [place], [address] CREAT,SERUM Normal 0.70-1.30 [facility] Comment on above: Result Comment: Canc elled via OM: Order cancelled - Patient discharged Performed By: #### L 100.0100, L500.2500 ####[facility] [address] [place], [address] eGFR Normal >60 [facility] Comment on above: Result Comment: Canc elled via OM: Order cancelled - Patient discharged Performed By: #### L 100.0100, L500.2500 ####[facility] [address] [place], [address] EST GFR - AA Normal >60 [facility] Comment on above: Result Comment: Canc elled via OM: Order cancelled - Patient discharged Performed By: #### L 100.0100, L500.2500 ####[facility] [address] [place], [address] GAP Normal 5-15 [facility] Comment on above: Result Comment: Canc elled via OM: Order cancelled - Patient discharged Performed By: #### L 100.0100, L500.2500 ####[facility] [address] [place], [address] GLU Normal 74-106 [facility] Comment on above: Result Comment: Canc elled via OM: Order cancelled - Patient discharged Performed By: #### L 100.0100, L500.2500 ####[facility] [address] [place], [address] Potassium Normal 3.5-5.1 [facility] Comment on above: Result Comment: Canc elled via OM: Order cancelled - Patient discharged Performed By: #### L 100.0100, L500.2500 ####[facility] [address] [place], [address] Basic Metabolic Profile (BMP) Normal 136-145 [facility] Comment on above: Result Comment: Canc elled via OM: Order cancelled - Patient discharged Performed By: #### L 100.0100, L500.2500 ####[facility] [address] [place], [address] CBC W/Diff, Automatedon 03-0 Absolute Neut Normal 2.0-7.7 [facility] Comment on above: Result Comment: Canc elled via OM: Order cancelled - Patient discharged Performed By: #### L 100.0100, L500.2500 ####[facility] [address] [place], [address] HCT Normal 40-54 [facility] Comment on above: Result Comment: Canc elled via OM: Order cancelled - Patient discharged Performed By: #### L 100.0100, L500.2500 ####[facility] [address] [place], [address] HGB Normal 13.0-16.5 [facility] Comment on above: Result Comment: Canc elled via OM: Order cancelled - Patient discharged Performed By: #### L 100.0100, L500.2500 ####[facility] [address] [place], [address] MCH Normal 27.0-32.0 [facility] Comment on above: Result Comment: Canc elled via OM: Order cancelled - Patient discharged Performed By: #### L 100.0100, L500.2500 ####[facility] [address] [place], [address] MCHC Normal 32-36 [facility] Comment on above: Result Comment: Canc elled via OM: Order cancelled - Patient discharged Performed By: #### L 100.0100, L500.2500 ####[facility] [address] [place], [address] MCV Normal 80-94 [facility] Comment on above: Result Comment: Canc elled via OM: Order cancelled - Patient discharged Performed By: #### L 100.0100, L500.2500 ####[facility] [address] [place], [address] NEUT% Normal 47-70 [facility] Comment on above: Result Comment: Canc elled via OM: Order cancelled - Patient discharged Performed By: #### L 100.0100, L500.2500 ####[facility] [address] [place], [address] PLT Normal 150-450 [facility] Comment on above: Result Comment: Canc elled via OM: Order cancelled - Patient discharged Performed By: #### L 100.0100, L500.2500 ####[facility] [address] [place], [address] RBC Normal 4.6-6.2 [facility] Comment on above: Result Comment: Canc elled via OM: Order cancelled - Patient discharged Performed By: #### L 100.0100, L500.2500 ####[facility] [address] [place], [address] RDW CV Normal 11.6-14.6 [facility] Comment on above: Result Comment: Canc elled via OM: Order cancelled - Patient discharged Performed By: #### L 100.0100, L500.2500 ####[facility] [address] [place], [address] RDW SD Normal 35.1-43.9 [facility] Comment on above: Result Comment: Canc elled via OM: Order cancelled - Patient discharged Performed By: #### L 100.0100, L500.2500 ####[facility] [address] [place], [address] WBC Normal 4.4-11.0 [facility] Comment on above: Result Comment: Canc elled via OM: Order cancelled - Patient discharged Performed By: #### L 100.0100, L500.2500 ####[facility] [address] [place], [address] Culture, Anaerobic Any Sourc reed 07-21-2024 CUAN UNK UNK Post-lavage Right lower extremity No anaerobic bacteria isolated. Normal [facility] Comment on above: Performed By: #### M 100.2000, M100.3000, M100.4001 ####[facility] [address] [place], [address] CUAN UNK UNK Pre-lavage right lower extremity - collected in [place] No anaerobic bacteria isolated. Normal [facility] Comment on above: Performed By: #### M 100.4001, M100.3000, M100.2000 ####[facility] [address] [place], [address] Culture, Blood (WB)on 2024 CUB No growth in 5 days. Normal [facility] Comment on above: Performed By: #### M 200.1000 ####[facility] [address] [place], [address] Absolute lymphocyte countOrd ered By: Jayla Osuna on 07-20-2024 Lymphocytes Auto (Unsp spec) [#/Vol] 1.89 10*3/uL 0.83-4.51 [facility] Automated lymphocyte count a s percentage of total leukocytesOrdered By: Jayla Osuna on 07-20-2024 Lymphocytes/100 WBC Auto (Unsp spec) 14.9 % Low 19- [facility] BUN/creatinine ratioOrdered By: Margarette Godinez on 07-20-2024 Urea nitrogen/Creatinine [Mass ratio] 16.1 mg/mg - [facility] Basic Metabolic Profile (BMP )on 07-20-2024 Anion gap [Moles/Vol] 12 mmol/L Normal 5-15 [facility] Comment on above: Performed By: #### L 500.2500 ####[facility] [address] [place], [address] BUN/CRE 16.1 RATIO Normal 10-20 [facility] Comment on above: Performed By: #### L 500.2500 ####[facility] [address] [place], [address] Calcium [Mass/Vol] 8.7 mg/dL Normal 7.6-11.0 [facility] Comment on above: Performed By: #### L 500.2500 ####[facility] [address] [place], [address] Chloride [Moles/Vol] 97 mmol/L Normal 96-108 [facility] Comment on above: Performed By: #### L 500.2500 ####[facility] [address] [place], [address] CO2 [Moles/Vol] 22.0 mmol/L Normal 22.0-29.0 [facility] Comment on above: Performed By: #### L 500.2500 ####[facility] [address] [place], [address] Creatinine [Mass/Vol] 4.24 mg/dL High 0.70-1.20 [facility] Comment on above: Performed By: #### L 500.2500 ####[facility] [address] [place], [address] ECRCL 13.28 ml/min Normal [facility] Comment on above: Performed By: #### L 500.2500 ####[facility] [address] [place], [address] GFR/1.73 sq M.predicted among non-blacks MDRD (S/P/Bld) [Vol rate/Area] 13 mL/min/{1.73_m2} Low >60 [facility] Comment on above: Result Comment: mL/m in/1.73m2 CKD-EPI Creatinine Equation (2020) Performed By: #### L 500.2500 ####[facility] [address] [place], [address] Glucose [Mass/Vol] 153 mg/dL High 70-99 [facility] Comment on above: Performed By: #### L 500.2500 ####[facility] [address] [place], [address] Potassium [Moles/Vol] 5.5 mmol/L High 3.3-5.1 [facility] Comment on above: Performed By: #### L 500.2500 ####[facility] [address] [place], [address] Sodium [Moles/Vol] 131 mmol/L Low 133-145 [facility] Comment on above: Performed By: #### L 500.2500 ####[facility] [address] [place], [address] Urea nitrogen [Mass/Vol] 68 mg/dL High 4-19 [facility] Comment on above: Performed By: #### L 500.2500 ####[facility] [address] [place], [address] BUN/CRE 16.1 RATIO Normal 10-20 [facility] Comment on above: Result Comment: WILL REORDER Performed By: #### L 500.2500, L100.0100 ####[facility] [address] [place], [address] Creatinine [Mass/Vol] 4.15 mg/dL High 0.70-1.20 [facility] Comment on above: Result Comment: WILL REORDER Performed By: #### L 500.2500, L100.0100 ####[facility] [address] [place], [address] ECRCL 13.57 ml/min Normal [facility] Comment on above: Result Comment: WILL REORDER Performed By: #### L 500.2500, L100.0100 ####[facility] [address] [place], [address] GFR/1.73 sq M.predicted among non-blacks MDRD (S/P/Bld) [Vol rate/Area] 13 mL/min/{1.73_m2} Low >60 [facility] Comment on above: Result Comment: WILL REORDERmL/min/1.73m2 CKD-EPI Creatinine Equation (2020) Performed By: #### L 500.2500, L100.0100 ####[facility] [address] [place], [address] Glucose [Mass/Vol] 155 mg/dL High 70-99 [facility] Comment on above: Result Comment: WILL REORDER Performed By: #### L 500.2500, L100.0100 ####[facility] [address] [place], [address] Urea nitrogen [Mass/Vol] 67 mg/dL High 4-19 [facility] Comment on above: Result Comment: WILL REORDER Performed By: #### L 500.2500, L100.0100 ####[facility] [address] [place], [address] Calcium Normal 8.5-10.1 [facility] Comment on above: Result Comment: WILL REORDER Performed By: #### L 500.2500, L100.0100 ####[facility] [address] [place], [address] CL Normal 98-107 [facility] Comment on above: Result Comment: WILL REORDER Performed By: #### L 500.2500, L100.0100 ####[facility] [address] [place], [address] CO2 Normal 21.0-32.0 [facility] Comment on above: Result Comment: WILL REORDER Performed By: #### L 500.2500, L100.0100 ####[facility] [address] [place], [address] EST GFR - AA Normal >60 [facility] Comment on above: Result Comment: WILL REORDER Performed By: #### L 500.2500, L100.0100 ####[facility] [address] [place], [address] GAP Normal 5-15 [facility] Comment on above: Result Comment: WILL REORDER Performed By: #### L 500.2500, L100.0100 ####[facility] [address] [place], [address] Potassium Normal 3.5-5.1 [facility] Comment on above: Result Comment: WILL REORDER Performed By: #### L 500.2500, L100.0100 ####[facility] [address] [place], [address] Basic Metabolic Profile (BMP) Normal 136-145 [facility] Comment on above: Result Comment: WILL REORDER Performed By: #### L 500.2500, L100.0100 ####[facility] [address] [place], [address] Basophil percentageOrdered B y: Jayla Osuna on 07-20-2024 Basophils/100 WBC (Bld) 0.4 % 0-1 [facility] Bedside Glucoseon 07-20-2024 FINGERSTICK GLU 91 mg/dL Normal 74-106 [facility] Comment on above: Result Comment: FANG GEMENT OF PATIENT CARE PER NURSING PROTOCOL Performed By: #### L 501.080 ####[facility] [address] [place], [address] FINGERSTICK GLU 98 mg/dL Normal 74-106 [facility] Comment on above: Result Comment: FANG GEMENT OF PATIENT CARE PER NURSING PROTOCOL Performed By: #### L 501.080 ####[facility] [address] [place], [address] FINGERSTICK GLU 159 mg/dL High 74-106 [facility] Comment on above: Result Comment: FANG GEMENT OF PATIENT CARE PER NURSING PROTOCOL Performed By: #### L 501.080 ####[facility] [address] [place], [address] FINGERSTICK GLU 156 mg/dL High 74-106 [facility] Comment on above: Result Comment: FANG VAZQUEZ OF PATIENT CARE PER NURSING PROTOCOL Performed By: #### L 501.080 ####[facility] [address] [place], [address] CBC W/Diff, Automatedon 02-2 Absolute Lymph 1.89 X10 3/uL Normal 0.83-4.51 [facility] Comment on above: Performed By: #### L 500.2500, L100.0100 ####[facility] [address] [place], [address] Absolute Neut 9.3 X10 3/uL High 2.0-7.7 [facility] Comment on above: Performed By: #### L 500.2500, L100.0100 ####[facility] [address] [place], [address] Basophils/100 WBC (Bld) 0.4 % Normal 0-1 [facility] Comment on above: Performed By: #### L 500.2500, L100.0100 ####[facility] [address] [place], [address] Eosinophils/100 WBC (Bld) 1.7 % Normal 0-5 [facility] Comment on above: Performed By: #### L 500.2500, L100.0100 ####[facility] [address] [place], [address] Erythrocyte distribution width (RBC) [Ratio] 17.6 % High 11.6-14.6 [facility] Comment on above: Performed By: #### L 500.2500, L100.0100 ####[facility] [address] [place], [address] Hematocrit (Bld) [Volume fraction] 25.2 % Low 40-54 [facility] Comment on above: Performed By: #### L 500.2500, L100.0100 ####[facility] [address] [place], [address] Hemoglobin (Bld) [Mass/Vol] 7.6 g/dL Low 13.0-16.5 [facility] Comment on above: Performed By: #### L 500.2500, L100.0100 ####[facility] [address] [place], [address] IG% 2.300 High 0.0-0.9 [facility] Comment on above: Result Comment: IG% - Immature Granulocytes (promyelocytes, myelocytes andmetamyelocytes) > 1% indicates that a LEFT SHIFT is Present. Performed By: #### L 500.2500, L100.0100 ####[facility] [address] [place], [address] Lymphocytes/100 WBC (Bld) 14.9 % Low 19-41 [facility] Comment on above: Performed By: #### L 500.2500, L100.0100 ####[facility] [address] [place], [address] MCH (RBC) [Entitic mass] 28.1 pg Normal 27.0-32.0 [facility] Comment on above: Performed By: #### L 500.2500, L100.0100 ####[facility] [address] [place], [address] MCHC (RBC) [Mass/Vol] 30.2 g/dL Low 32-36 [facility] Comment on above: Performed By: #### L 500.2500, L100.0100 ####[facility] [address] [place], [address] MCV (RBC) [Entitic vol] 93.3 fL Normal 80-94 [facility] Comment on above: Performed By: #### L 500.2500, L100.0100 ####[facility] [address] [place], [address] Monocytes/100 WBC (Bld) 7.6 % Normal 0-10 [facility] Comment on above: Performed By: #### L 500.2500, L100.0100 ####[facility] [address] [place], [address] Neutrophils/100 WBC (Bld) 73.1 % High 47-70 [facility] Comment on above: Performed By: #### L 500.2500, L100.0100 ####[facility] [address] [place], [address] Nucleated RBC (Bld) [#/Vol] 0 10*3/uL Normal 0-5 [facility] Comment on above: Performed By: #### L 500.2500, L100.0100 ####[facility] [address] [place], [address] Platelet mean volume (Bld) [Entitic vol] 10.4 fL Normal 6.2-12.0 [facility] Comment on above: Performed By: #### L 500.2500, L100.0100 ####[facility] [address] [place], [address] Platelets (Bld) [#/Vol] 438 10*3/uL Normal 150-450 [facility] Comment on above: Performed By: #### L 500.2500, L100.0100 ####[facility] [address] [place], [address] RBC (Bld) [#/Vol] 2.70 10*6/uL Low 4.6-6.2 [facility] Comment on above: Performed By: #### L 500.2500, L100.0100 ####[facility] [address] [place], [address] RDW SD 60.7 fl High 35.1-43.9 [facility] Comment on above: Performed By: #### L 500.2500, L100.0100 ####[facility] [address] [place], [address] WBC (Bld) [#/Vol] 12.7 10*3/uL High 4.4-11.0 [facility] Comment on above: Performed By: #### L 500.2500, L100.0100 ####[facility] [address] [place], [address] Carbon dioxide measurementOr dered By: Margarette Godinez on 07-20-2024 CO2 [Moles/Vol] 22.0 mmol/L 22.0-29.0 [facility] Chloride measurementOrdered By: Margarette Godinez on 07-20-2024 Chloride [Moles/Vol] 97 mmol/L 96-108 [facility] Eosinophil percentageOrdered By: Jayla Osuna on 07-20-2024 Eosinophils/100 WBC (Bld) 1.7 % 0-5 [facility] Erythrocyte distribution wid th ratioOrdered By: Jayla Osuna on 07-20-2024 Erythrocyte distribution width (RBC) [Ratio] 17.6 % High 11.6-14.6 [facility] Erythrocyte distribution wid th standard deviationOrdered By: Jayla Osuna on 07-20-2024 Erythrocyte distribution width (RBC) [Ratio] 60.7 fl High 35.1-43.9 [facility] Glomerular filtration rate ( GFR) estimation/1.73 sq m using serum, plasma, or whole bOrdered By: Margarette Godinez on 07-20-2024 GFR/1.73 sq M.predicted among non-blacks MDRD (S/P/Bld) [Vol rate/Area] 13 mL/min/{1.73_m2} Low >60 [facility] By: Margarette God[facility] on 07-20-2024 Glucose [Mass/Vol] 91 mg/dL 74-106 [facility] Hematocrit Auto (Bld) [Volum e fraction]Ordered By: Jayla Osuna on 07-20-2024 Hematocrit (Bld) [Volume fraction] 25.2 % Low 40-54 [facility] Hemoglobin measurementOrdere d By: Jayla Osuna on 07-20-2024 Hemoglobin (Bld) [Mass/Vol] 7.6 g/dL Low 13.0-16.5 [facility] Immature granulocytes/100 WB C Auto (Bld)Ordered By: Jayla Osuna on 07-20-2024 Immature granulocytes/100 WBC (Bld) 2.300 % High 0.0-0.9 [facility] MCV (mean corpuscular volume ) determinationOrdered By: Jayla Osuna on 07-20-2024 MCV (RBC) [Entitic vol] 93.3 fL 80-94 [facility] Mean corpuscular hemoglobin (MCH) determinationOrdered By: Jayla Osuna on 07-20-2024 MCH (RBC) [Entitic mass] 28.1 pg 27.0-32.0 [facility] Monocyte percentageOrdered B y: Jayla Osuna on 07-20-2024 Monocytes/100 WBC (Bld) 7.6 % 0-10 [facility] Neutrophil percentageOrdered By: Jayla Osuna on 07-20-2024 Neutrophils/100 WBC (Bld) 73.1 % High 47-70 [facility] Platelet countOrdered By: Kristofer Osuna on 07-20-2024 Platelets (Bld) [#/Vol] 438 10*3/uL 150-450 [facility] RBC Auto (Bld) [#/Vol]Ordere d By: Jayla Osuna on 07-20-2024 RBC (Bld) [#/Vol] 2.70 10*6/uL Low 4.6-6.2 [facility] Serum creatinine measurement (mass/volume)Ordered By: Margarette Godinez on 07-20-2024 Creatinine [Mass/Vol] 4.24 mg/dL High 0.70-1.20 [facility] Serum glucose measurement (m ass/volume)Ordered By: Margarette Godinez on 07-20-2024 Glucose [Mass/Vol] 153 mg/dL High 70-99 [facility] Serum or plasma anion gap de termination (moles/volume)Ordered By: Margarette Godinez on 07-20-2024 Anion gap [Moles/Vol] 12 mmol/L 5- [facility] Serum or plasma calcium lilli urement (mass/volume)Ordered By: Margarette Godinez on 07-20-2024 Calcium [Mass/Vol] 8.7 mg/dL 7.6-11.0 [facility] Serum or plasma potassium me asurementOrdered By: Margarette Godinez on 07-20-2024 Potassium [Moles/Vol] 5.5 mmol/L High 3.3-5.1 [facility] Serum or plasma sodium measu rement (moles/volume)Ordered By: Margarette Godinez on 07-20-2024 Sodium [Moles/Vol] 131 mmol/L Low 133-145 [facility] Serum or plasma urea nitroge n measurement (mass/volume)Ordered By: Margarette Godinez on 07-20-2024 Urea nitrogen [Mass/Vol] 68 mg/dL High 4-19 [facility] White blood cell (WBC) count Ordered By: Jayla Osuna on 07-20-2024 WBC (Bld) [#/Vol] 12.7 10*3/uL High 4.4-11.0 [facility] Basic Metabolic Profile (BMP )on 07-19-2024 Anion gap [Moles/Vol] 17 mmol/L High -15 [facility] Comment on above: Performed By: #### L 500.2500 ####[facility] [address] [place], [address] BUN/CRE 14.3 RATIO Normal 10-20 [facility] Comment on above: Performed By: #### L 500.2500 ####[facility] [address] [place], [address] Calcium [Mass/Vol] 8.7 mg/dL Normal 7.6-11.0 [facility] Comment on above: Performed By: #### L 500.2500 ####[facility] [address] [place], [address] Chloride [Moles/Vol] 95 mmol/L Low 96-108 [facility] Comment on above: Performed By: #### L 500.2500 ####[facility] [address] [place], [address] CO2 [Moles/Vol] 19.8 mmol/L Low 22.0-29.0 [facility] Comment on above: Performed By: #### L 500.2500 ####[facility] [address] [place], [address] Creatinine [Mass/Vol] 5.60 mg/dL High 0.70-1.20 [facility] Comment on above: Performed By: #### L 500.2500 ####[facility] [address] [place], [address] ECRCL 10.06 ml/min Normal [facility] Comment on above: Performed By: #### L 500.2500 ####[facility] [address] [place], [address] GFR/1.73 sq M.predicted among non-blacks MDRD (S/P/Bld) [Vol rate/Area] 9 mL/min/{1.73_m2} Low >60 [facility] Comment on above: Result Comment: mL/m in/1.73m2 CKD-EPI Creatinine Equation (2020) Performed By: #### L 500.2500 ####[facility] [address] [place], [address] Glucose [Mass/Vol] 153 mg/dL High 70-99 [facility] Comment on above: Performed By: #### L 500.2500 ####[facility] [address] [place], [address] Potassium [Moles/Vol] 5.9 mmol/L High 3.3-5.1 [facility] Comment on above: Performed By: #### L 500.2500 ####[facility] [address] [place], [address] Sodium [Moles/Vol] 131 mmol/L Low 133-145 [facility] Comment on above: Performed By: #### L 500.2500 ####[facility] [address] [place], [address] Urea nitrogen [Mass/Vol] 80 mg/dL High 4-19 [facility] Comment on above: Performed By: #### L 500.2500 ####[facility] [address] [place], [address] Anion gap [Moles/Vol] 13 mmol/L Normal 5-15 [facility] Comment on above: Performed By: #### L 500.2500 ####[facility] [address] [place], [address] ECRCL 12.41 ml/min Normal [facility] Comment on above: Performed By: #### L 500.2500 ####[facility] [address] [place], [address] GFR/1.73 sq M.predicted among non-blacks MDRD (S/P/Bld) [Vol rate/Area] 12 mL/min/{1.73_m2} Low >60 [facility] Comment on above: Performed By: #### L 500.2500 ####[facility] [address] [place], [address] BUN/CRE 13.7 RATIO Normal 10-20 [facility] Comment on above: Performed By: #### L 500.2500 ####[facility] [address] [place], [address] Calcium [Mass/Vol] 8.9 mg/dL Normal 7.6-11.0 [facility] Comment on above: Performed By: #### L 500.2500 ####[facility] [address] [place], [address] Creatinine [Mass/Vol] 4.6 mg/dL High 0.8-1.3 [facility] Comment on above: Performed By: #### L 500.2500 ####[facility] [address] [place], [address] Glucose [Mass/Vol] 130 mg/dL High 70-99 [facility] Comment on above: Performed By: #### L 500.2500 ####[facility] [address] [place], [address] Urea nitrogen [Mass/Vol] 63 mg/dL High 4-19 [facility] Comment on above: Performed By: #### L 500.2500 ####[facility] [address] [place], [address] Chloride [Moles/Vol] 97 mmol/L Normal 96-108 [facility] Comment on above: Performed By: #### L 500.2500 ####[facility] [address] [place], [address] CO2 [Moles/Vol] 22.7 mmol/L Normal 22.0-29.0 [facility] Comment on above: Performed By: #### L 500.2500 ####[facility] [address] [place], [address] Potassium [Moles/Vol] 5.0 mmol/L Normal 3.3-5.1 [facility] Comment on above: Performed By: #### L 500.2500 ####[facility] [address] [place], [address] Sodium [Moles/Vol] 133 mmol/L Normal 133-145 [facility] Comment on above: Performed By: #### L 500.2500 ####[facility] [address] [place], [address] Glucose [Mass/Vol] 165 mg/dL High 70-99 [facility] Comment on above: Order Comment: THERESA LIMA Result Comment: REOR DERED AMENDED REPORT 07/19/24 1223 GLU previously reported as: 173 H mg/dL Performed By: #### L 100.0100, L500.2500 ####[facility] [address] [place], [address] Urea nitrogen [Mass/Vol] 84 mg/dL High 4-19 [facility] Comment on above: Order Comment: REORD ERED Result Comment: REOR DERED AMENDED REPORT 07/19/24 1223 BUN previously reported as: 83 H mg/dL Performed By: #### L 100.0100, L500.2500 ####[facility] [address] [place], [address] BUN/CRE 13.7 RATIO Normal 10-20 [facility] Comment on above: Order Comment: WILL REORDER Result Comment: WILL REORDER AMENDED REPORT 07/19/24 1106 BUN/CRE previously reported as: 13.5 RATIO Performed By: #### L 100.0100, L500.2500 ####[facility] [address] [place], [address] Creatinine [Mass/Vol] 4.6 mg/dL High 0.8-1.3 [facility] Comment on above: Order Comment: WILL REORDER Result Comment: WILL REORDER AMENDED REPORT 07/19/24 1106 CREAT,SERUM previously reported as: 4.5 H mg/dL Performed By: #### L 100.0100, L500.2500 ####[facility] [address] [place], [address] ECRCL 12.41 ml/min Normal [facility] Comment on above: Order Comment: WILL REORDER Result Comment: WILL REORDER AMENDED REPORT 07/19/24 1106 Estimated CRCL previously reported as: 12.65 ml/min Performed By: #### L 100.0100, L500.2500 ####[facility] [address] [place], [address] Glucose [Mass/Vol] 130 mg/dL High 70-99 [facility] Comment on above: Order Comment: WILL REORDER Result Comment: WILL REORDER AMENDED REPORT 07/19/24 1106 GLU previously reported as: 157 H mg/dL Performed By: #### L 100.0100, L500.2500 ####[facility] [address] [place], [address] Urea nitrogen [Mass/Vol] 63 mg/dL High 4-19 [facility] Comment on above: Order Comment: WILL REORDER Result Comment: WILL REORDER AMENDED REPORT 07/19/24 1106 BUN previously reported as: 60 H mg/dL Performed By: #### L 100.0100, L500.2500 ####[facility] [address] [place], [address] BUN/CRE 15.2 RATIO Normal 10-20 [facility] Comment on above: Order Comment: THERESA EREBoo Result Comment: MARIS RAYA Performed By: #### L 100.0100, L500.2500 ####[facility] [address] [place], [address] Creatinine [Mass/Vol] 5.5 mg/dL High 0.8-1.3 [facility] Comment on above: Order Comment: REALVERTO ERED Result Comment: REKEVEN ZHAOD Performed By: #### L 100.0100, L500.2500 ####[facility] [address] [place], [address] ECRCL 10.38 ml/min Normal [facility] Comment on above: Order Comment: REALVERTO ERED Result Comment: MARIS ZHAOD Performed By: #### L 100.0100, L500.2500 ####[facility] [address] [place], [address] GFR/1.73 sq M.predicted among non-blacks MDRD (S/P/Bld) [Vol rate/Area] 9 mL/min/{1.73_m2} Low >60 [facility] Comment on above: Order Comment: REORD ERED Result Comment: REOR DEREDmL/min/1.73m2 CKD-EPI Creatinine Equation (2020) Performed By: #### L 100.0100, L500.2500 ####[facility] [address] [place], [address] Calcium Normal 8.5-10.1 [facility] Comment on above: Order Comment: REORD ERED Result Comment: REOR DERED Performed By: #### L 100.0100, L500.2500 ####[facility] [address] [place], [address] CL Normal 98-107 [facility] Comment on above: Order Comment: REORD ERED Result Comment: REOR DERED Performed By: #### L 100.0100, L500.2500 ####[facility] [address] [place], [address] CO2 Normal 21.0-32.0 [facility] Comment on above: Order Comment: REORD ERED Result Comment: REOR DERED Performed By: #### L 100.0100, L500.2500 ####[facility] [address] [place], [address] EST GFR - AA Normal >60 [facility] Comment on above: Order Comment: REORD ERED Result Comment: REOR DERED Performed By: #### L 100.0100, L500.2500 ####[facility] [address] [place], [address] GAP Normal 5-15 [facility] Comment on above: Order Comment: REORD ERED Result Comment: REOR DERED Performed By: #### L 100.0100, L500.2500 ####[facility] [address] [place], [address] Potassium Normal 3.5-5.1 [facility] Comment on above: Order Comment: THERESA LIMA Result Comment: MARIS RAYA Performed By: #### L 100.0100, L500.2500 ####[facility] [address] [place], [address] Basic Metabolic Profile (BMP) Normal 136-145 [facility] Comment on above: Order Comment: THERESA EREBoo Result Comment: MARIS RAYA Performed By: #### L 100.0100, L500.2500 ####[facility] [address] [place], [address] Bedside Glucoseon 07-19-2024 FINGERSTICK GLU 135 mg/dL High 74-106 [facility] Comment on above: Result Comment: FANG GEMENT OF PATIENT CARE PER NURSING PROTOCOL Performed By: #### L 501.080 ####[facility] [address] [place], [address] FINGERSTICK GLU 227 mg/dL High 74-106 [facility] Comment on above: Result Comment: FANG GEMENT OF PATIENT CARE PER NURSING PROTOCOL Performed By: #### L 501.080 ####[facility] [address] [place], [address] FINGERSTICK GLU 120 mg/dL High 74-106 [facility] Comment on above: Result Comment: FANG GEMENT OF PATIENT CARE PER NURSING PROTOCOL Performed By: #### L 501.080 ####[facility] [address] [place], [address] CBC W/Diff, Automatedon 02-2 Absolute Lymph 2.07 X10 3/uL Normal 0.83-4.51 [facility] Comment on above: Performed By: #### L 100.0100, L500.2500 ####[facility] [address] [place], [address] Absolute Neut 13.1 X10 3/uL High 2.0-7.7 [facility] Comment on above: Performed By: #### L 100.0100, L500.2500 ####[facility] [address] [place], [address] Basophils/100 WBC (Bld) 0.5 % Normal 0-1 [facility] Comment on above: Performed By: #### L 100.0100, L500.2500 ####[facility] [address] [place], [address] Eosinophils/100 WBC (Bld) 1.6 % Normal 0-5 [facility] Comment on above: Performed By: #### L 100.0100, L500.2500 ####[facility] [address] [place], [address] Erythrocyte distribution width (RBC) [Ratio] 17.7 % High 11.6-14.6 [facility] Comment on above: Performed By: #### L 100.0100, L500.2500 ####[facility] [address] [place], [address] Hematocrit (Bld) [Volume fraction] 25.5 % Low 40-54 [facility] Comment on above: Performed By: #### L 100.0100, L500.2500 ####[facility] [address] [place], [address] Hemoglobin (Bld) [Mass/Vol] 7.7 g/dL Low 13.0-16.5 [facility] Comment on above: Performed By: #### L 100.0100, L500.2500 ####[facility] [address] [place], [address] IG% 2.300 High 0.0-0.9 [facility] Comment on above: Result Comment: IG% - Immature Granulocytes (promyelocytes, myelocytes andmetamyelocytes) > 1% indicates that a LEFT SHIFT is Present. Performed By: #### L 100.0100, L500.2500 ####[facility] [address] [place], [address] Lymphocytes/100 WBC (Bld) 12.1 % Low 19-41 [facility] Comment on above: Performed By: #### L 100.0100, L500.2500 ####[facility] [address] [place], [address] MCH (RBC) [Entitic mass] 28.1 pg Normal 27.0-32.0 [facility] Comment on above: Performed By: #### L 100.0100, L500.2500 ####[facility] [address] [place], [address] MCHC (RBC) [Mass/Vol] 30.2 g/dL Low 32-36 [facility] Comment on above: Performed By: #### L 100.0100, L500.2500 ####[facility] [address] [place], [address] MCV (RBC) [Entitic vol] 93.1 fL Normal 80-94 [facility] Comment on above: Performed By: #### L 100.0100, L500.2500 ####[facility] [address] [place], [address] Monocytes/100 WBC (Bld) 7.1 % Normal 0-10 [facility] Comment on above: Performed By: #### L 100.0100, L500.2500 ####[facility] [address] [place], [address] Neutrophils/100 WBC (Bld) 76.4 % High 47-70 [facility] Comment on above: Performed By: #### L 100.0100, L500.2500 ####[facility] [address] [place], [address] Nucleated RBC (Bld) [#/Vol] 0 10*3/uL Normal 0-5 [facility] Comment on above: Performed By: #### L 100.0100, L500.2500 ####[facility] [address] [place], [address] Platelet mean volume (Bld) [Entitic vol] 10.6 fL Normal 6.2-12.0 [facility] Comment on above: Performed By: #### L 100.0100, L500.2500 ####[facility] [address] [place], [address] Platelets (Bld) [#/Vol] 467 10*3/uL High 150-450 [facility] Comment on above: Performed By: #### L 100.0100, L500.2500 ####[facility] [address] [place], [address] RBC (Bld) [#/Vol] 2.74 10*6/uL Low 4.6-6.2 [facility] Comment on above: Performed By: #### L 100.0100, L500.2500 ####[facility] [address] [place], [address] RDW SD 59.6 fl High 35.1-43.9 [facility] Comment on above: Performed By: #### L 100.0100, L500.2500 ####[facility] [address] [place], [address] WBC (Bld) [#/Vol] 17.2 10*3/uL High 4.4-11.0 [facility] Comment on above: Performed By: #### L 100.0100, L500.2500 ####[facility] [address] [place], [address] Serum or plasma vancomycin m easurement (mass/volume)Ordered By: Jayla Osuna on 07-19-2024 Vancomycin [Mass/Vol] 16.7 ug/mL High 0.0-15.0 [facility] Vancomycin, Random Levelon 0 07-19-2024 VANCO, RANDOM 16.7 ug/mL High 0.0-15.0 [facility] Comment on above: Result Comment: VANC OMYCIN STANDARD DRUG THERAPY: CRITICAL VALUE IS > 15.0 mg/LVANCOMYCIN HIGH INTENSITY THERAPY: CRITICAL VALUE IS > 20.0 mg/LPLEASE CONTACT PHARMACY SERVICES (#3213) FOR INTERPRETATIONOF RESULTS. THIS RESULT DOES NOT REPRESENT A PEAK OR TROUGHLEVEL FOR THIS DRUG. Performed By: #### L 501.8850 ####[facility] [address] [place], [address] Basic Metabolic Profile (BMP )on 07-18-2024 GFR/1.73 sq M.predicted among non-blacks MDRD (S/P/Bld) [Vol rate/Area] 12 mL/min/{1.73_m2} Low >60 [facility] Comment on above: Order Comment: WILL REORDER Result Comment: WILL REORDERmL/min/1.73m2 CKD-EPI Creatinine Equation (2020) Performed By: #### L 100.0100, L500.2500 ####[facility] [address] [place], [address] Calcium Normal 8.5-10.1 [facility] Comment on above: Order Comment: WILL REORDER Result Comment: WILL REORDER Performed By: #### L 100.0100, L500.2500 ####[facility] [address] [place], [address] CL Normal 98-107 [facility] Comment on above: Order Comment: WILL REORDER Result Comment: WILL REORDER Performed By: #### L 100.0100, L500.2500 ####[facility] [address] [place], [address] CO2 Normal 21.0-32.0 [facility] Comment on above: Order Comment: WILL REORDER Result Comment: WILL REORDER Performed By: #### L 100.0100, L500.2500 ####[facility] [address] [place], [address] EST GFR - AA Normal >60 [facility] Comment on above: Order Comment: WILL REORDER Result Comment: WILL REORDER Performed By: #### L 100.0100, L500.2500 ####[facility] [address] [place], [address] GAP Normal 5-15 [facility] Comment on above: Order Comment: WILL REORDER Result Comment: WILL REORDER Performed By: #### L 100.0100, L500.2500 ####[facility] [address] [place], [address] Potassium Normal 3.5-5.1 [facility] Comment on above: Order Comment: WILL REORDER Result Comment: WILL REORDER Performed By: #### L 100.0100, L500.2500 ####[facility] [address] [place], [address] Basic Metabolic Profile (BMP) Normal 136-145 [facility] Comment on above: Order Comment: WILL REORDER Result Comment: WILL REORDER Performed By: #### L 100.0100, L500.2500 ####[facility] [address] [place], [address] Bedside Glucoseon 07-18-2024 FINGERSTICK GLU 110 mg/dL High 74-106 [facility] Comment on above: Result Comment: FANG GEMENT OF PATIENT CARE PER NURSING PROTOCOL Performed By: #### L 501.080 ####[facility] [address] [place], [address] FINGERSTICK GLU 156 mg/dL High 74-106 [facility] Comment on above: Result Comment: FANG GEMENT OF PATIENT CARE PER NURSING PROTOCOL Performed By: #### L 501.080 ####[facility] [address] [place], [address] FINGERSTICK GLU 139 mg/dL High 74-106 [facility] Comment on above: Result Comment: FANG GEMENT OF PATIENT CARE PER NURSING PROTOCOL Performed By: #### L 501.080 ####[facility] [address] [place], [address] FINGERSTICK GLU 155 mg/dL High 74-106 [facility] Comment on above: Result Comment: FANG GEMENT OF PATIENT CARE PER NURSING PROTOCOL Performed By: #### L 501.080 ####[facility] [address] [place], [address] FINGERSTICK GLU 229 mg/dL High 74-106 [facility] Comment on above: Result Comment: FANG GEMENT OF PATIENT CARE PER NURSING PROTOCOL Performed By: #### L 501.080 ####[facility] [address] [place], [address] Body Tissue Cultureon 2024 BTC Normal [facility] Comment on above: Performed By: #### M 100.2910, M100.4001, M100.2000 ####[facility] [address] [place], [address] CBC W/Diff, Automatedon 06-24 PATH REV Reviewed Normal [facility] Comment on above: Result Comment: Neut rophilic leukocytosis with left shift.Normocytic anemia.Clinical correlation necessary.Jose Souza M.D. 07/18/24 AMENDED REPORT 07/18/24 1335 PATH REV previously reported as: September nitesh Performed By: #### L 100.0100, L500.2500 ####[facility] [address] [place], [address] Culture, Anaerobic Any Sourc reed 07-18-2024 CUAN Normal [facility] Comment on above: Performed By: #### M 100.4001, M100.2000, M100.3000 ####[facility] [address] [place], [address] Review by pathologistOrdered By: Jayla Osuna on 07-18-2024 Pathologist review Jeff (Unsp spec) [Interp] Reviewed [facility] Wound Cultureon 07-18-2024 WC Normal [facility] Comment on above: Performed By: #### M 100.4001, M100.3000, M100.2000 ####[facility] [address] [place], [address] WC Normal [facility] Comment on above: Performed By: #### M 100.2000, M100.3000, M100.4001 ####[facility] [address] [place], [address] Ankle Brachial Indexon 07-17 Ankle Brachial Index Normal [facility] Basic Metabolic Profile (BMP )on 07-17-2024 BUN/CRE 13.3 RATIO Normal 10-20 [facility] Comment on above: Performed By: #### L 500.2500, L100.0100 ####[facility] [address] [place], [address] CA,Total 8.3 mg/dL Low 8.5-10.1 [facility] Comment on above: Performed By: #### L 500.2500, L100.0100 ####[facility] [address] [place], [address] Chloride [Moles/Vol] 97 mmol/L Low 98-107 [facility] Comment on above: Performed By: #### L 500.2500, L100.0100 ####[facility] [address] [place], [address] CO2 [Moles/Vol] 25.0 mmol/L Normal 21.0-32.0 [facility] Comment on above: Performed By: #### L 500.2500, L100.0100 ####[facility] [address] [place], [address] Creatinine [Mass/Vol] 6.15 mg/dL High 0.70-1.30 [facility] Comment on above: Result Comment: The validity of the calculated GFR GFRAA in patients over70 years has not been determined. Clinical correlation isessential. Performed By: #### L 500.2500, L100.0100 ####[facility] [address] [place], [address] ECRCL 9.33 ml/min Normal [facility] Comment on above: Performed By: #### L 500.2500, L100.0100 ####[facility] [address] [place], [address] EST GFR - AA 11 mL/min Low >60 [facility] Comment on above: Result Comment: Afri can Trinidadian GFR Calc Performed By: #### L 500.2500, L100.0100 ####[facility] [address] [place], [address] GAP 8 Normal 5-15 [facility] Comment on above: Performed By: #### L 500.2500, L100.0100 ####[facility] [address] [place], [address] GFR/1.73 sq M.predicted among non-blacks MDRD (S/P/Bld) [Vol rate/Area] 9 mL/min/{1.73_m2} Low >60 [facility] Comment on above: Result Comment: Non- GFR Calc Performed By: #### L 500.2500, L100.0100 ####[facility] [address] [place], [address] Glucose [Mass/Vol] 213 mg/dL High 74-106 [facility] Comment on above: Result Comment: Gluc ose result greater than or equal to 200 mg/dLsuggests DIABETES MELLITUS per A.D.A. criteria. Performed By: #### L 500.2500, L100.0100 ####[facility] [address] [place], [address] Potassium [Moles/Vol] 5.1 mmol/L Normal 3.5-5.1 [facility] Comment on above: Performed By: #### L 500.2500, L100.0100 ####[facility] [address] [place], [address] Sodium [Moles/Vol] 130 mmol/L Low 136-145 [facility] Comment on above: Performed By: #### L 500.2500, L100.0100 ####[facility] [address] [place], [address] Urea nitrogen [Mass/Vol] 82 mg/dL High 7-18 [facility] Comment on above: Performed By: #### L 500.2500, L100.0100 ####[facility] [address] [place], [address] Bedside Glucoseon 07-17-2024 FINGERSTICK GLU 119 mg/dL High 74-106 [facility] Comment on above: Result Comment: FANG GEMENT OF PATIENT CARE PER NURSING PROTOCOL Performed By: #### L 501.080 ####[facility] [address] [place], [address] FINGERSTICK GLU 226 mg/dL High 74-106 [facility] Comment on above: Result Comment: FANG GEMENT OF PATIENT CARE PER NURSING PROTOCOL Performed By: #### L 501.080 ####[facility] [address] [place], [address] FINGERSTICK GLU 203 mg/dL High 74-106 [facility] Comment on above: Result Comment: FANG GEMENT OF PATIENT CARE PER NURSING PROTOCOL Performed By: #### L 501.080 ####[facility] [address] [place], [address] FINGERSTICK GLU 208 mg/dL High 74-106 [facility] Comment on above: Result Comment: FANG GEMENT OF PATIENT CARE PER NURSING PROTOCOL Performed By: #### L 501.080 ####[facility] [address] [place], [address] Blood cultureOrdered By: Rosales Shore on 07-17-2024 Bacteria identified Cx Nom (Bld) No growth in 5 days. [facility] CBC W/Diff, Automatedon 06-24 Absolute Lymph 2.11 X10 3/uL Normal 0.83-4.51 [facility] Comment on above: Performed By: #### L 500.2500, L100.0100 ####[facility] [address] [place], [address] Absolute Neut 17.0 X10 3/uL High 2.0-7.7 [facility] Comment on above: Performed By: #### L 500.2500, L100.0100 ####[facility] [address] [place], [address] Basophils/100 WBC (Bld) 0.3 % Normal 0-1 [facility] Comment on above: Performed By: #### L 500.2500, L100.0100 ####[facility] [address] [place], [address] Eosinophils/100 WBC (Bld) 0.6 % Normal 0-5 [facility] Comment on above: Performed By: #### L 500.2500, L100.0100 ####[facility] [address] [place], [address] Erythrocyte distribution width (RBC) [Ratio] 17.7 % High 11.6-14.6 [facility] Comment on above: Performed By: #### L 500.2500, L100.0100 ####[facility] [address] [place], [address] Hematocrit (Bld) [Volume fraction] 23.7 % Low 40-54 [facility] Comment on above: Performed By: #### L 500.2500, L100.0100 ####[facility] [address] [place], [address] Hemoglobin (Bld) [Mass/Vol] 7.1 g/dL Low 13.0-16.5 [facility] Comment on above: Performed By: #### L 500.2500, L100.0100 ####[facility] [address] [place], [address] IG% 2.800 High 0.0-0.9 [facility] Comment on above: Result Comment: IG% - Immature Granulocytes (promyelocytes, myelocytes andmetamyelocytes) > 1% indicates that a LEFT SHIFT is Present. Performed By: #### L 500.2500, L100.0100 ####[facility] [address] [place], [address] Lymphocytes/100 WBC (Bld) 9.9 % Low 19-41 [facility] Comment on above: Performed By: #### L 500.2500, L100.0100 ####[facility] [address] [place], [address] MCH (RBC) [Entitic mass] 27.8 pg Normal 27.0-32.0 [facility] Comment on above: Performed By: #### L 500.2500, L100.0100 ####[facility] [address] [place], [address] MCHC (RBC) [Mass/Vol] 30.0 g/dL Low 32-36 [facility] Comment on above: Performed By: #### L 500.2500, L100.0100 ####[facility] [address] [place], [address] MCV (RBC) [Entitic vol] 92.9 fL Normal 80-94 [facility] Comment on above: Performed By: #### L 500.2500, L100.0100 ####[facility] [address] [place], [address] Monocytes/100 WBC (Bld) 6.6 % Normal 0-10 [facility] Comment on above: Performed By: #### L 500.2500, L100.0100 ####[facility] [address] [place], [address] Neutrophils/100 WBC (Bld) 79.8 % High 47-70 [facility] Comment on above: Performed By: #### L 500.2500, L100.0100 ####[facility] [address] [place], [address] Nucleated RBC (Bld) [#/Vol] 0 10*3/uL Normal 0-5 [facility] Comment on above: Performed By: #### L 500.2500, L100.0100 ####[facility] [address] [place], [address] Platelet mean volume (Bld) [Entitic vol] 10.7 fL Normal 6.2-12.0 [facility] Comment on above: Performed By: #### L 500.2500, L100.0100 ####[facility] [address] [place], [address] Platelets (Bld) [#/Vol] 378 10*3/uL Normal 150-450 [facility] Comment on above: Performed By: #### L 500.2500, L100.0100 ####[facility] [address] [place], [address] RBC (Bld) [#/Vol] 2.55 10*6/uL Low 4.6-6.2 [facility] Comment on above: Performed By: #### L 500.2500, L100.0100 ####[facility] [address] [place], [address] RDW SD 60.7 fl High 35.1-43.9 [facility] Comment on above: Performed By: #### L 500.2500, L100.0100 ####[facility] [address] [place], [address] WBC (Bld) [#/Vol] 21.2 10*3/uL High 4.4-11.0 [facility] Comment on above: Performed By: #### L 500.2500, L100.0100 ####[facility] [address] [place], [address] Chloride measurementOrdered By: Jayla Osuna on 07-17-2024 Chloride [Moles/Vol] 97 mmol/L Low 98-107 [facility] Gram Stainon 07-17-2024 GS UNK UNK Post-lavage Right lower extremity Gram Stain 3+ Gram positive cocci Rare White Blood Cells Normal [facility] Comment on above: Performed By: #### M 100.2000, M100.3000, M100.4001 ####[facility] [address] [place], [address] GS UNK UNK Pre-lavage right lower extremity - collected in [place] Gram Stain Rare White Blood Cells 3+ Red Blood Cells Rare Gram positive cocci Normal [facility] Comment on above: Performed By: #### M 100.4001, M100.3000, M1.1999 ####[facility] [address] [place], [address] GS Reason for Exam: Infection of right lower extremity Bone cortex right lower extremity Gram Stain 4+ Gram positive cocci Rare Gram negative rods No White Blood Cells Normal [facility] Comment on above: Performed By: #### M 100.2910, M100.4001, M100.1999 ####[facility] [address] [place], [address] US Art Duplex Bilat Lower Ex ton 07-17-2024 US Art Duplex Bilat Lower Ext Normal [facility] Vancomycin, Random Levelon 0 07-17-2024 VANCO, RANDOM 13.2 ug/mL Normal 0.0-15.0 [facility] Comment on above: Result Comment: VANC OMYCIN STANDARD DRUG THERAPY: CRITICAL VALUE IS > 15.0 mg/LVANCOMYCIN HIGH INTENSITY THERAPY: CRITICAL VALUE IS > 20.0 mg/LPLEASE CONTACT PHARMACY SERVICES (#1653) FOR INTERPRETATIONOF RESULTS. THIS RESULT DOES NOT REPRESENT A PEAK OR TROUGHLEVEL FOR THIS DRUG. Performed By: #### L 501.8850 ####[facility] [address] [place], [address] 12 Lead EKGon 07-16-2024 12 Lead EKG Normal [facility] Activated partial thrombopla stin time (aPTT) in platelet poor plasma by coagulation aOrdered By: Flavio Young on 07-16-2024 aPTT Coag (PPP) [Time] 39.7 s High 24.1-36.2 [facility] Anaerobic cultureOrdered By: Josef Garcia on 07-16-2024 Bacteria identified Anaer cx Nom (Unsp spec) Clostridium cadaveris Abnormal [facility] Bacteria identified Anaer cx Nom (Unsp spec) No anaerobic bacteria isolated. [facility] Bacterial tissue aerobic cul tureOrdered By: Josef Garcia on 07-16-2024 Bacteria identified Aer cx Nom (Tiss) Meth. resistant Staph. aureus Abnormal [facility] Basic Metabolic Profile (BMP )on 07-16-2024 BUN/CRE 13.8 RATIO Normal 10-20 [facility] Comment on above: Performed By: #### L 100.0100, L500.2500 ####[facility] [address] [place], [address] CA,Total 8.7 mg/dL Normal 8.5-10.1 [facility] Comment on above: Performed By: #### L 100.0100, L500.2500 ####[facility] [address] [place], [address] Chloride [Moles/Vol] 97 mmol/L Low 98-107 [facility] Comment on above: Performed By: #### L 100.0100, L500.2500 ####[facility] [address] [place], [address] CO2 [Moles/Vol] 26.0 mmol/L Normal 21.0-32.0 [facility] Comment on above: Performed By: #### L 100.0100, L500.2500 ####[facility] [address] [place], [address] Creatinine [Mass/Vol] 5.13 mg/dL High 0.70-1.30 [facility] Comment on above: Result Comment: The validity of the calculated GFR GFRAA in patients over70 years has not been determined. Clinical correlation isessential. Performed By: #### L 100.0100, L500.2500 ####[facility] [address] [place], [address] ECRCL 11.13 ml/min Normal [facility] Comment on above: Performed By: #### L 100.0100, L500.2500 ####[facility] [address] [place], [address] EST GFR - AA 14 mL/min Low >60 [facility] Comment on above: Result Comment: Afri can Trinidadian GFR Calc Performed By: #### L 100.0100, L500.2500 ####[facility] [address] [place], [address] GAP 11 Normal 5-15 [facility] Comment on above: Performed By: #### L 100.0100, L500.2500 ####[facility] [address] [place], [address] GFR/1.73 sq M.predicted among non-blacks MDRD (S/P/Bld) [Vol rate/Area] 11 mL/min/{1.73_m2} Low >60 [facility] Comment on above: Result Comment: Non- GFR Calc Performed By: #### L 100.0100, L500.2500 ####[facility] [address] [place], [address] Glucose [Mass/Vol] 127 mg/dL High 74-106 [facility] Comment on above: Result Comment: Fast ing Glucose result greater than or equal to 126 mg/dLsuggests DIABETES MELLITUS per A.D.A. criteria. Performed By: #### L 100.0100, L500.2500 ####[facility] [address] [place], [address] Potassium [Moles/Vol] 4.3 mmol/L Normal 3.5-5.1 [facility] Comment on above: Performed By: #### L 100.0100, L500.2500 ####[facility] [address] [place], [address] Sodium [Moles/Vol] 134 mmol/L Low 136-145 [facility] Comment on above: Performed By: #### L 100.0100, L500.2500 ####[facility] [address] [place], [address] Urea nitrogen [Mass/Vol] 71 mg/dL High 7-18 [facility] Comment on above: Performed By: #### L 100.0100, L500.2500 ####[facility] [address] [place], [address] Bedside Glucoseon 07-16-2024 FINGERSTICK GLU 105 mg/dL Normal 74-106 [facility] Comment on above: Result Comment: FANG MARSHALLENT OF PATIENT CARE PER NURSING PROTOCOL Performed By: #### L 501.080 ####[facility] [address] [place], [address] FINGERSTICK GLU 118 mg/dL High 74-106 [facility] Comment on above: Result Comment: FANG MARSHALLENT OF PATIENT CARE PER NURSING PROTOCOL Performed By: #### L 501.080 ####[facility] [address] [place], [address] FINGERSTICK GLU 122 mg/dL High 74-106 [facility] Comment on above: Result Comment: FANG VAZQUEZ OF PATIENT CARE PER NURSING PROTOCOL Performed By: #### L 501.080 ####[facility] [address] [place], [address] Blood cultureOrdered By: Rosales Shore on 07-16-2024 Bacteria identified Cx Nom (Bld) No growth in 5 days. [facility] CBC W/Diff, Automatedon 06-24 PATH REV Reviewed Normal [facility] Comment on above: Result Comment: Neut rophilic leukocytosis with left shift.Normocytic anemia.Clinical correlation necessary.Jose Souza M.D. 07/16/24 AMENDED REPORT 07/16/24 1406 PATH REV previously reported as: September Performed By: #### L 101.9900, L501.6710, L500.2500, L100.0100 ####[facility] [address] [place], [address] Absolute Lymph 2.43 X10 3/uL Normal 0.83-4.51 [facility] Comment on above: Performed By: #### L 100.0100, L500.2500 ####[facility] [address] [place], [address] Absolute Neut 12.8 X10 3/uL High 2.0-7.7 [facility] Comment on above: Performed By: #### L 100.0100, L500.2500 ####[facility] [address] [place], [address] Basophils/100 WBC (Bld) 0.2 % Normal 0-1 [facility] Comment on above: Performed By: #### L 100.0100, L500.2500 ####[facility] [address] [place], [address] Eosinophils/100 WBC (Bld) 1.6 % Normal 0-5 [facility] Comment on above: Performed By: #### L 100.0100, L500.2500 ####[facility] [address] [place], [address] Erythrocyte distribution width (RBC) [Ratio] 17.7 % High 11.6-14.6 [facility] Comment on above: Performed By: #### L 100.0100, L500.2500 ####[facility] [address] [place], [address] Hematocrit (Bld) [Volume fraction] 25.2 % Low 40-54 [facility] Comment on above: Performed By: #### L 100.0100, L500.2500 ####[facility] [address] [place], [address] Hemoglobin (Bld) [Mass/Vol] 7.5 g/dL Low 13.0-16.5 [facility] Comment on above: Performed By: #### L 100.0100, L500.2500 ####[facility] [address] [place], [address] IG% 3.200 High 0.0-0.9 [facility] Comment on above: Result Comment: IG% - Immature Granulocytes (promyelocytes, myelocytes andmetamyelocytes) > 1% indicates that a LEFT SHIFT is Present. Performed By: #### L 100.0100, L500.2500 ####[facility] [address] [place], [address] Lymphocytes/100 WBC (Bld) 14.0 % Low 19-41 [facility] Comment on above: Performed By: #### L 100.0100, L500.2500 ####[facility] [address] [place], [address] MCH (RBC) [Entitic mass] 28.2 pg Normal 27.0-32.0 [facility] Comment on above: Performed By: #### L 100.0100, L500.2500 ####[facility] [address] [place], [address] MCHC (RBC) [Mass/Vol] 29.8 g/dL Low 32-36 [facility] Comment on above: Performed By: #### L 100.0100, L500.2500 ####[facility] [address] [place], [address] MCV (RBC) [Entitic vol] 94.7 fL High 80-94 [facility] Comment on above: Performed By: #### L 100.0100, L500.2500 ####[facility] [address] [place], [address] Monocytes/100 WBC (Bld) 7.5 % Normal 0-10 [facility] Comment on above: Performed By: #### L 100.0100, L500.2500 ####[facility] [address] [place], [address] Neutrophils/100 WBC (Bld) 73.5 % High 47-70 [facility] Comment on above: Performed By: #### L 100.0100, L500.2500 ####[facility] [address] [place], [address] Nucleated RBC (Bld) [#/Vol] 0 10*3/uL Normal 0-5 [facility] Comment on above: Performed By: #### L 100.0100, L500.2500 ####[facility] [address] [place], [address] Platelet mean volume (Bld) [Entitic vol] 10.6 fL Normal 6.2-12.0 [facility] Comment on above: Performed By: #### L 100.0100, L500.2500 ####[facility] [address] [place], [address] Platelets (Bld) [#/Vol] 378 10*3/uL Normal 150-450 [facility] Comment on above: Performed By: #### L 100.0100, L500.2500 ####[facility] [address] [place], [address] RBC (Bld) [#/Vol] 2.66 10*6/uL Low 4.6-6.2 [facility] Comment on above: Performed By: #### L 100.0100, L500.2500 ####[facility] [address] [place], [address] RDW SD 60.4 fl High 35.1-43.9 [facility] Comment on above: Performed By: #### L 100.0100, L500.2500 ####[facility] [address] [place], [address] WBC (Bld) [#/Vol] 17.4 10*3/uL High 4.4-11.0 [facility] Comment on above: Performed By: #### L 100.0100, L500.2500 ####[facility] [address] [place], [address] Consultation - Infectious Dx on 07-16-2024 Consultation - Infectious Dx Normal [facility] Consultation - Nephrologyon 07-16-2024 Consultation - Nephrology Normal [facility] Culture, Blood (WB)on 2024 CUB Normal [facility] Comment on above: Performed By: #### M 200.1000, M100.636 ####[facility] [address] [place], [address] Foot 2 Viewson 07-16-2024 Foot 2 Views Normal [facility] Gram stainOrdered By: Kesha Garcia on 07-16-2024 Microscopic observation Gram stain Nom (Unsp spec) [facility] Hemoglobin A1con 07-16-2024 HbA1c (Bld) [Mass fraction] 6.0 % High 3.8-5.6 [facility] Comment on above: Order Comment: Comme nts: Pre-operative Result Comment: Norm al < 5.7 % Prediabetic 5.7 - 6.4 % Diabetic >or= 6.5 % Please note range changes. Performed By: #### L 300.3900, L501.9985, L300.4310 ####[facility] [address] [place], [address] Hemoglobin A1c percentageOrd ered By: Flavio Young on 07-16-2024 HbA1c (Bld) [Mass fraction] 6.0 % High 3.8-5.6 [facility] MR/POSTOP.ANEon 07-16-2024 MR/POSTOP.ANE Normal [facility] MR/LENJZZIZ8aq 07-16-2024 MR/POSTOPAN2 Normal [facility] Operative Reporton Operative Report Normal [facility] Partial Thromboplast Timeon 07-16-2024 aPTT Coag (Bld) [Time] 39.7 s High 24.1-36.2 [facility] Comment on above: Order Comment: Comme nts: Pre-operative Performed By: #### L 300.3900, L501.9985, L300.4310 ####[facility] [address] [place], [address] Prothrombin Time w/INRon INR Coag (PPP) [Relative time] 1.3 {INR} Normal [facility] Comment on above: Order Comment: Comme nts: Pre-operative Performed By: #### L 300.3900, L501.9985, L300.4310 ####[facility] [address] [place], [address] PT Coag (PPP) [Time] 16.8 s High 11.7-14.9 [facility] Comment on above: Order Comment: Comme nts: Pre-operative Performed By: #### L 300.3900, L501.9985, L300.4310 ####[facility] [address] [place], [address] Prothrombin timeOrdered By: Flavio Young on 07-16-2024 PT Coag (PPP) [Time] 16.8 s High 11.7-14.9 [facility] Routine wound cultureOrdered By: Josef Garcia on 07-16-2024 Microbial culture, routine Meth. resistant Staph. aureus Abnormal [facility] Basic Metabolic Profile (BMP )on 07-15-2024 BUN/CRE 13.9 RATIO Normal 10-20 [facility] Comment on above: Performed By: #### L 500.2500, L100.0100 ####[facility] [address] [place], [address] CA,Total 8.8 mg/dL Normal 8.5-10.1 [facility] Comment on above: Performed By: #### L 500.2500, L100.0100 ####[facility] [address] [place], [address] Chloride [Moles/Vol] 98 mmol/L Normal 98-107 [facility] Comment on above: Performed By: #### L 500.2500, L100.0100 ####[facility] [address] [place], [address] CO2 [Moles/Vol] 27.0 mmol/L Normal 21.0-32.0 [facility] Comment on above: Performed By: #### L 500.2500, L100.0100 ####[facility] [address] [place], [address] Creatinine [Mass/Vol] 3.97 mg/dL High 0.70-1.30 [facility] Comment on above: Result Comment: The validity of the calculated GFR GFRAA in patients over70 years has not been determined. Clinical correlation isessential. Performed By: #### L 500.2500, L100.0100 ####[facility] [address] [place], [address] ECRCL 14.64 ml/min Normal [facility] Comment on above: Performed By: #### L 500.2500, L100.0100 ####[facility] [address] [place], [address] EST GFR - AA 19 mL/min Low >60 [facility] Comment on above: Result Comment: Afri can Trinidadian GFR Calc Performed By: #### L 500.2500, L100.0100 ####[facility] [address] [place], [address] GAP 9 Normal 5-15 [facility] Comment on above: Performed By: #### L 500.2500, L100.0100 ####[facility] [address] [place], [address] GFR/1.73 sq M.predicted among non-blacks MDRD (S/P/Bld) [Vol rate/Area] 15 mL/min/{1.73_m2} Low >60 [facility] Comment on above: Result Comment: Non- GFR Calc Performed By: #### L 500.2500, L100.0100 ####[facility] [address] [place], [address] Glucose [Mass/Vol] 204 mg/dL High 74-106 [facility] Comment on above: Result Comment: Gluc ose result greater than or equal to 200 mg/dLsuggests DIABETES MELLITUS per A.D.A. criteria. Performed By: #### L 500.2500, L100.0100 ####[facility] [address] [place], [address] Potassium [Moles/Vol] 3.5 mmol/L Normal 3.5-5.1 [facility] Comment on above: Performed By: #### L 500.2500, L100.0100 ####[facility] [address] [place], [address] Sodium [Moles/Vol] 133 mmol/L Low 136-145 [facility] Comment on above: Performed By: #### L 500.2500, L100.0100 ####[facility] [address] [place], [address] Urea nitrogen [Mass/Vol] 55 mg/dL High 7-18 [facility] Comment on above: Performed By: #### L 500.2500, L100.0100 ####[facility] [address] [place], [address] Bedside Glucoseon 07-15-2024 FINGERSTICK GLU 138 mg/dL High 74-106 [facility] Comment on above: Result Comment: FANG GEMENT OF PATIENT CARE PER NURSING PROTOCOL Performed By: #### L 501.080 ####[facility] [address] [place], [address] FINGERSTICK GLU 57 mg/dL Low 74-106 [facility] Comment on above: Result Comment: FANG GEMENT OF PATIENT CARE PER NURSING PROTOCOL Performed By: #### L 501.080 ####[facility] [address] [place], [address] FINGERSTICK GLU 141 mg/dL High 74-106 [facility] Comment on above: Result Comment: FANG GEMENT OF PATIENT CARE PER NURSING PROTOCOL Performed By: #### L 501.080 ####[facility] [address] [place], [address] FINGERSTICK GLU 214 mg/dL High 74-106 [facility] Comment on above: Result Comment: FANG GEMENT OF PATIENT CARE PER NURSING PROTOCOL Performed By: #### L 501.080 ####[facility] [address] [place], [address] CBC W/Diff, Automatedon - Absolute Lymph 2.18 X10 3/uL Normal 0.83-4.51 [facility] Comment on above: Performed By: #### L 500.2500, L100.0100 ####[facility] [address] [place], [address] Absolute Neut 14.1 X10 3/uL High 2.0-7.7 [facility] Comment on above: Performed By: #### L 500.2500, L100.0100 ####[facility] [address] [place], [address] Basophils/100 WBC (Bld) 0.2 % Normal 0-1 [facility] Comment on above: Performed By: #### L 500.2500, L100.0100 ####[facility] [address] [place], [address] Eosinophils/100 WBC (Bld) 1.2 % Normal 0-5 [facility] Comment on above: Performed By: #### L 500.2500, L100.0100 ####[facility] [address] [place], [address] Erythrocyte distribution width (RBC) [Ratio] 17.6 % High 11.6-14.6 [facility] Comment on above: Performed By: #### L 500.2500, L100.0100 ####[facility] [address] [place], [address] Hematocrit (Bld) [Volume fraction] 26.7 % Low 40-54 [facility] Comment on above: Performed By: #### L 500.2500, L100.0100 ####[facility] [address] [place], [address] Hemoglobin (Bld) [Mass/Vol] 7.8 g/dL Low 13.0-16.5 [facility] Comment on above: Performed By: #### L 500.2500, L100.0100 ####[facility] [address] [place], [address] IG% 2.500 High 0.0-0.9 [facility] Comment on above: Result Comment: IG% - Immature Granulocytes (promyelocytes, myelocytes andmetamyelocytes) > 1% indicates that a LEFT SHIFT is Present. Performed By: #### L 500.2500, L100.0100 ####[facility] [address] [place], [address] Lymphocytes/100 WBC (Bld) 11.9 % Low 19-41 [facility] Comment on above: Performed By: #### L 500.2500, L100.0100 ####[facility] [address] [place], [address] MCH (RBC) [Entitic mass] 27.9 pg Normal 27.0-32.0 [facility] Comment on above: Performed By: #### L 500.2500, L100.0100 ####[facility] [address] [place], [address] MCHC (RBC) [Mass/Vol] 29.2 g/dL Low 32-36 [facility] Comment on above: Performed By: #### L 500.2500, L100.0100 ####[facility] [address] [place], [address] MCV (RBC) [Entitic vol] 95.4 fL High 80-94 [facility] Comment on above: Performed By: #### L 500.2500, L100.0100 ####[facility] [address] [place], [address] Monocytes/100 WBC (Bld) 7.1 % Normal 0-10 [facility] Comment on above: Performed By: #### L 500.2500, L100.0100 ####[facility] [address] [place], [address] Neutrophils/100 WBC (Bld) 77.1 % High 47-70 [facility] Comment on above: Performed By: #### L 500.2500, L100.0100 ####[facility] [address] [place], [address] Nucleated RBC (Bld) [#/Vol] 0 10*3/uL Normal 0-5 [facility] Comment on above: Performed By: #### L 500.2500, L100.0100 ####[facility] [address] [place], [address] Platelet mean volume (Bld) [Entitic vol] 10.7 fL Normal 6.2-12.0 [facility] Comment on above: Performed By: #### L 500.2500, L100.0100 ####[facility] [address] [place], [address] Platelets (Bld) [#/Vol] 361 10*3/uL Normal 150-450 [facility] Comment on above: Performed By: #### L 500.2500, L100.0100 ####[facility] [address] [place], [address] RBC (Bld) [#/Vol] 2.80 10*6/uL Low 4.6-6.2 [facility] Comment on above: Performed By: #### L 500.2500, L100.0100 ####[facility] [address] [place], [address] RDW SD 61.1 fl High 35.1-43.9 [facility] Comment on above: Performed By: #### L 500.2500, L100.0100 ####[facility] [address] [place], [address] WBC (Bld) [#/Vol] 18.3 10*3/uL High 4.4-11.0 [facility] Comment on above: Performed By: #### L 500.2500, L100.0100 ####[facility] [address] [place], [address] Foot min 3 Viewson 5 Foot min 3 Views Normal [facility] Wound Cultureon 07-15-2024 WC Normal [facility] Comment on above: Performed By: #### M 100.4001, M100.2000, M100.3000 ####[facility] [address] [place], [address] BC GPC IDon 07-14-2024 BC GPC ID Normal [facility] Comment on above: Performed By: #### M 200.1000, M100.636 ####[facility] [address] [place], [address] Basic Metabolic Profile (BMP )on 07-14-2024 BUN/CRE 11.0 RATIO Normal 10-20 [facility] Comment on above: Performed By: #### L 500.2500, L100.0100 ####[facility] [address] [place], [address] CA,Total 8.6 mg/dL Normal 8.5-10.1 [facility] Comment on above: Performed By: #### L 500.2500, L100.0100 ####[facility] [address] [place], [address] Chloride [Moles/Vol] 94 mmol/L Low 98-107 [facility] Comment on above: Performed By: #### L 500.2500, L100.0100 ####[facility] [address] [place], [address] CO2 [Moles/Vol] 30.0 mmol/L Normal 21.0-32.0 [facility] Comment on above: Performed By: #### L 500.2500, L100.0100 ####[facility] [address] [place], [address] Creatinine [Mass/Vol] 4.84 mg/dL High 0.70-1.30 [facility] Comment on above: Result Comment: The validity of the calculated GFR GFRAA in patients over70 years has not been determined. Clinical correlation isessential. Performed By: #### L 500.2500, L100.0100 ####[facility] [address] [place], [address] ECRCL 11.51 ml/min Normal [facility] Comment on above: Performed By: #### L 500.2500, L100.0100 ####[facility] [address] [place], [address] EST GFR - AA 15 mL/min Low >60 [facility] Comment on above: Result Comment: Afri can Trinidadian GFR Calc Performed By: #### L 500.2500, L100.0100 ####[facility] [address] [place], [address] GAP 8 Normal 5-15 [facility] Comment on above: Performed By: #### L 500.2500, L100.0100 ####[facility] [address] [place], [address] GFR/1.73 sq M.predicted among non-blacks MDRD (S/P/Bld) [Vol rate/Area] 12 mL/min/{1.73_m2} Low >60 [facility] Comment on above: Result Comment: Non- GFR Calc Performed By: #### L 500.2500, L100.0100 ####[facility] [address] [place], [address] Glucose [Mass/Vol] 244 mg/dL High 74-106 [facility] Comment on above: Result Comment: Gluc ose result greater than or equal to 200 mg/dLsuggests DIABETES MELLITUS per A.D.A. criteria. Performed By: #### L 500.2500, L100.0100 ####[facility] [address] [place], [address] Potassium [Moles/Vol] 3.4 mmol/L Low 3.5-5.1 [facility] Comment on above: Performed By: #### L 500.2500, L100.0100 ####[facility] [address] [place], [address] Sodium [Moles/Vol] 132 mmol/L Low 136-145 [facility] Comment on above: Performed By: #### L 500.2500, L100.0100 ####[facility] [address] [place], [address] Urea nitrogen [Mass/Vol] 53 mg/dL High 7-18 [facility] Comment on above: Performed By: #### L 500.2500, L100.0100 ####[facility] [address] [place], [address] Bedside Glucoseon 07-14-2024 FINGERSTICK GLU 196 mg/dL High 74-106 [facility] Comment on above: Result Comment: FANG GEMENT OF PATIENT CARE PER NURSING PROTOCOL Performed By: #### L 501.080 ####[facility] [address] [place], [address] FINGERSTICK GLU 103 mg/dL Normal 74-106 [facility] Comment on above: Result Comment: FANG GEMENT OF PATIENT CARE PER NURSING PROTOCOL Performed By: #### L 501.080 ####[facility] [address] [place], [address] FINGERSTICK GLU 183 mg/dL High 74-106 [facility] Comment on above: Result Comment: FANG GEMENT OF PATIENT CARE PER NURSING PROTOCOL Performed By: #### L 501.080 ####[facility] [address] [place], [address] FINGERSTICK GLU 239 mg/dL High 74-106 [facility] Comment on above: Result Comment: FANG GEMENT OF PATIENT CARE PER NURSING PROTOCOL Performed By: #### L 501.080 ####[facility] [address] [place], [address] CBC W/Diff, Automatedon 06-24 Absolute Lymph 1.49 X10 3/uL Normal 0.83-4.51 [facility] Comment on above: Performed By: #### L 500.2500, L100.0100 ####[facility] [address] [place], [address] Absolute Neut 14.7 X10 3/uL High 2.0-7.7 [facility] Comment on above: Performed By: #### L 500.2500, L100.0100 ####[facility] [address] [place], [address] Basophils/100 WBC (Bld) 0.2 % Normal 0-1 [facility] Comment on above: Performed By: #### L 500.2500, L100.0100 ####[facility] [address] [place], [address] Eosinophils/100 WBC (Bld) 0.9 % Normal 0-5 [facility] Comment on above: Performed By: #### L 500.2500, L100.0100 ####[facility] [address] [place], [address] Erythrocyte distribution width (RBC) [Ratio] 17.6 % High 11.6-14.6 [facility] Comment on above: Performed By: #### L 500.2500, L100.0100 ####[facility] [address] [place], [address] Hematocrit (Bld) [Volume fraction] 25.3 % Low 40-54 [facility] Comment on above: Performed By: #### L 500.2500, L100.0100 ####[facility] [address] [place], [address] Hemoglobin (Bld) [Mass/Vol] 7.8 g/dL Low 13.0-16.5 [facility] Comment on above: Performed By: #### L 500.2500, L100.0100 ####[facility] [address] [place], [address] IG% 3.300 High 0.0-0.9 [facility] Comment on above: Result Comment: IG% - Immature Granulocytes (promyelocytes, myelocytes andmetamyelocytes) > 1% indicates that a LEFT SHIFT is Present. Performed By: #### L 500.2500, L100.0100 ####[facility] [address] [place], [address] Lymphocytes/100 WBC (Bld) 8.2 % Low 19-41 [facility] Comment on above: Performed By: #### L 500.2500, L100.0100 ####[facility] [address] [place], [address] MCH (RBC) [Entitic mass] 28.8 pg Normal 27.0-32.0 [facility] Comment on above: Performed By: #### L 500.2500, L100.0100 ####[facility] [address] [place], [address] MCHC (RBC) [Mass/Vol] 30.8 g/dL Low 32-36 [facility] Comment on above: Performed By: #### L 500.2500, L100.0100 ####[facility] [address] [place], [address] MCV (RBC) [Entitic vol] 93.4 fL Normal 80-94 [facility] Comment on above: Performed By: #### L 500.2500, L100.0100 ####[facility] [address] [place], [address] Monocytes/100 WBC (Bld) 7.2 % Normal 0-10 [facility] Comment on above: Performed By: #### L 500.2500, L100.0100 ####[facility] [address] [place], [address] Neutrophils/100 WBC (Bld) 80.2 % High 47-70 [facility] Comment on above: Performed By: #### L 500.2500, L100.0100 ####[facility] [address] [place], [address] Nucleated RBC (Bld) [#/Vol] 0 10*3/uL Normal 0-5 [facility] Comment on above: Performed By: #### L 500.2500, L100.0100 ####[facility] [address] [place], [address] Platelet mean volume (Bld) [Entitic vol] 10.6 fL Normal 6.2-12.0 [facility] Comment on above: Performed By: #### L 500.2500, L100.0100 ####[facility] [address] [place], [address] Platelets (Bld) [#/Vol] 346 10*3/uL Normal 150-450 [facility] Comment on above: Performed By: #### L 500.2500, L100.0100 ####[facility] [address] [place], [address] RBC (Bld) [#/Vol] 2.71 10*6/uL Low 4.6-6.2 [facility] Comment on above: Performed By: #### L 500.2500, L100.0100 ####[facility] [address] [place], [address] RDW SD 59.7 fl High 35.1-43.9 [facility] Comment on above: Performed By: #### L 500.2500, L100.0100 ####[facility] [address] [place], [address] WBC (Bld) [#/Vol] 18.3 10*3/uL High 4.4-11.0 [facility] Comment on above: Performed By: #### L 500.2500, L100.0100 ####[facility] [address] [place], [address] Echo Completeon 07-14-2024 Echo Complete Normal [facility] Gram Stainon 07-14-2024 GS Gram Stain 1+ Gram positive rods 4+ Gram positive cocci Rare White Blood Cells No Epithelial cells Normal [facility] Comment on above: Performed By: #### M 100.4001, M100.2000, M100.3000 ####[facility] [address] [place], [address] Vancomycin, Random Levelon 0 07-14-2024 VANCO, RANDOM 15.3 ug/mL High 0.0-15.0 [facility] Comment on above: Order Comment: Comme nts: please draw with AM labs Result Comment: VANC OMYCIN STANDARD DRUG THERAPY: CRITICAL VALUE IS > 15.0 mg/LVANCOMYCIN HIGH INTENSITY THERAPY: CRITICAL VALUE IS > 20.0 mg/LPLEASE CONTACT PHARMACY SERVICES (#5116) FOR INTERPRETATIONOF RESULTS. THIS RESULT DOES NOT REPRESENT A PEAK OR TROUGHLEVEL FOR THIS DRUG. Performed By: #### L 501.8850 ####[facility] [address] [place], [address] Anaerobic cultureOrdered By: Chung Humphreys on 07-13-2024 Bacteria identified Anaer cx Nom (Unsp spec) Clostridium perfringens Abnormal [facility] Basic Metabolic Profile (BMP )on 07-13-2024 BUN/CRE 8.5 RATIO Low 10-20 [facility] Comment on above: Performed By: #### L 101.9900, L501.6710, L500.2500, L100.0100 ####[facility] [address] [place], [address] CA,Total 8.9 mg/dL Normal 8.5-10.1 [facility] Comment on above: Performed By: #### L 101.9900, L501.6710, L500.2500, L100.0100 ####[facility] [address] [place], [address] Chloride [Moles/Vol] 93 mmol/L Low 98-107 [facility] Comment on above: Performed By: #### L 101.9900, L501.6710, L500.2500, L100.0100 ####[facility] [address] [place], [address] CO2 [Moles/Vol] 32.0 mmol/L Normal 21.0-32.0 [facility] Comment on above: Performed By: #### L 101.9900, L501.6710, L500.2500, L100.0100 ####[facility] [address] [place], [address] Creatinine [Mass/Vol] 4.35 mg/dL High 0.70-1.30 [facility] Comment on above: Result Comment: The validity of the calculated GFR GFRAA in patients over70 years has not been determined. Clinical correlation isessential. Performed By: #### L 101.9900, L501.6710, L500.2500, L100.0100 ####[facility] [address] [place], [address] ECRCL 13.09 ml/min Normal [facility] Comment on above: Performed By: #### L 101.9900, L501.6710, L500.2500, L100.0100 ####[facility] [address] [place], [address] EST GFR - AA 17 mL/min Low >60 [facility] Comment on above: Result Comment: Afri can Trinidadian GFR Calc Performed By: #### L 101.9900, L501.6710, L500.2500, L100.0100 ####[facility] [address] [place], [address] GAP 8 Normal 5-15 [facility] Comment on above: Performed By: #### L 101.9900, L501.6710, L500.2500, L100.0100 ####[facility] [address] [place], [address] GFR/1.73 sq M.predicted among non-blacks MDRD (S/P/Bld) [Vol rate/Area] 14 mL/min/{1.73_m2} Low >60 [facility] Comment on above: Result Comment: Non- GFR Calc Performed By: #### L 101.9900, L501.6710, L500.2500, L100.0100 ####[facility] [address] [place], [address] Glucose [Mass/Vol] 132 mg/dL High 74-106 [facility] Comment on above: Result Comment: Fast ing Glucose result greater than or equal to 126 mg/dLsuggests DIABETES MELLITUS per A.D.A. criteria. Performed By: #### L 101.9900, L501.6710, L500.2500, L100.0100 ####[facility] [address] [place], [address] Potassium [Moles/Vol] 3.7 mmol/L Normal 3.5-5.1 [facility] Comment on above: Result Comment: Slig ht Hemolysis, Result may be falsely increased. Performed By: #### L 101.9900, L501.6710, L500.2500, L100.0100 ####[facility] [address] [place], [address] Sodium [Moles/Vol] 133 mmol/L Low 136-145 [facility] Comment on above: Performed By: #### L 101.9900, L501.6710, L500.2500, L100.0100 ####[facility] [address] [place], [address] Urea nitrogen [Mass/Vol] 37 mg/dL High 7-18 [facility] Comment on above: Performed By: #### L 101.9900, L501.6710, L500.2500, L100.0100 ####[facility] [address] [place], [place], [id number] Bedside Glucoseon 07-13-2024 FINGERSTICK GLU 231 mg/dL High 74-106 [facility] Comment on above: Result Comment: FANG VAZQUEZ OF PATIENT CARE PER NURSING PROTOCOL Performed By: #### L 501.080 ####[facility] [address] [place], [place], [address] Blood cultureOrdered By: Noelle Humphreys on 07-13-2024 Bacteria identified Cx Nom (Bld) Meth. resistant Staph. aureus Abnormal [facility] Blood manual differential co mment interpretation (narrative result)Ordered By: Chung Humphreys on 07-13-2024 Manual differential comment Jeff (Bld) [Interp] SEE COMMENT [facility] C-reactive protein measureme nt by high sensitivity methodOrdered By: Chung Humphreys on 07-13-2024 C-reactive protein measurement by high sensitivity method 301.00 mg/L High 0.0-3.0 [facility] CRPon 07-13-2024 C-REACTIVE PROT 301.00 mg/L High 0.0-3.0 [facility] Comment on above: Result Comment: C-Re active Protein (CRP) provides useful information for thediagnosis, therapy and monitoring of inflammatory processesand associated diseases. For the evaluation of Relative Riskfor Cardiovascular Disease, a High Sensitivity CRP (HSCRP)should be ordered. Performed By: #### L 101.9900, L501.6710, L500.2500, L100.0100 ####[facility] [address] [place], [address] Chest PA and Lateralon 07-13 Chest PA and Lateral Normal [facility] Emergency Department Summary on 07-13-2024 Emergency Department Summary Normal [facility] Erythrocyte Sed Rateon 07-13 SED RATE 53 mm/hr High 0-20 [facility] Comment on above: Performed By: #### L 101.9900, L501.6710, L500.2500, L100.0100 ####[facility] [address] [facility] [place], [place], [id number] Erythrocyte morphology asses smentOrdered By: Chung Humphreys on 07-13-2024 RBC morphology finding Nom (Bld) N CHROM NORMAL NORM C&C [facility] Erythrocyte sedimentation ra teOrdered By: Chung Humphreys on 07-13-2024 ESR (Bld) [Velocity] 53 mm/h High 0-20 [facility] Foot min 3 Viewson 5 Foot min 3 Views Normal [facility] Gram stainOrdered By: Kevin Humphreys on 07-13-2024 Microscopic observation Gram stain Nom (Unsp spec) [facility] H AND P Exam - Hospitaliston 07-13-2024 H&P Exam - Hospitalist Normal [facility] Hypochromatic red blood cell detectionOrdered By: Chung Humphreys on 07-13-2024 Hypochromia Ql (Bld) RARE [facility] Influenza virus A and B and SARS-CoV-2 (COVID-19) and Respiratory syncytial virus RNAOrdered By: Chung Humphreys on 07-13-2024 SARS-CoV-2 (COVID-19) RNA EZEKIEL+probe Ql (Unsp spec) [facility] M100.678on 07-13-2024 M100.678 SARS-CoV-2 (COVID 19 ) Negative INFLUENZA A Negative INFLUENZA B Negative RSV PCR Negative Normal [facility] Comment on above: Performed By: #### M 100.988 ####[facility] [address] [facility] [place], [address] Macrocytes detectionOrdered By: Chung Humphreys on 07-13-2024 Macrocytes Ql (Bld) 1+ [facility] No Panel InformationOrdered By: Chung Humphreys on 07-13-2024 1+ [facility] Organism identificationOrder ed By: Chung Humphreys on 07-13-2024 Microorganism identified Cx Nom (Unsp spec) Meth. resistant Staph. aureus Abnormal [facility] Platelet estimateOrdered By: Chung Humphreys on 07-13-2024 Platelets LM Ql (Bld) ADEQUATE ADEQ [facility] Routine wound cultureOrdered By: Chung Humphreys on 07-13-2024 Microbial culture, routine Meth. resistant Staph. aureus Abnormal [facility] Urinalysis, Completeon 07-13 BACTERIA Normal None Seen [facility] Comment on above: Order Comment: SENT LABEL TO MS3 TO COLLECTCOLLECTOR TO SPECIFY Result Comment: JAYY ENT DISCHARGED Performed By: #### L 400.0001 ####[facility] [address] [place], [address] BILIRUBIN URINE Normal Negative [facility] Comment on above: Order Comment: SENT LABEL TO MS3 TO COLLECTCOLLECTOR TO SPECIFY Result Comment: JAYY ENT DISCHARGED Performed By: #### L 400.0001 ####[facility] [address] [place], [address] Clarity (U) Normal Clear [facility] Comment on above: Order Comment: SENT LABEL TO MS3 TO COLLECTCOLLECTOR TO SPECIFY Result Comment: JAYY ENT DISCHARGED Performed By: #### L 400.0001 ####[facility] [address] [place], [address] Color (U) Normal Yellow [facility] Comment on above: Order Comment: SENT LABEL TO MS3 TO COLLECTCOLLECTOR TO SPECIFY Result Comment: JAYY ENT DISCHARGED Performed By: #### L 400.0001 ####[facility] [address] [place], [address] EPI,SQUAMOUS Normal 0-5 [facility] Comment on above: Order Comment: SENT LABEL TO MS3 TO COLLECTCOLLECTOR TO SPECIFY Result Comment: JAYY ENT DISCHARGED Performed By: #### L 400.0001 ####[facility] [address] [place], [address] GLUCOSE, UR Normal Normal [facility] Comment on above: Order Comment: SENT LABEL TO MS3 TO COLLECTCOLLECTOR TO SPECIFY Result Comment: JAYY ENT DISCHARGED Performed By: #### L 400.0001 ####[facility] [address] [place], [address] KETONE UR Normal Negative [facility] Comment on above: Order Comment: SENT LABEL TO MS3 TO COLLECTCOLLECTOR TO SPECIFY Result Comment: JAYY ENT DISCHARGED Performed By: #### L 400.0001 ####[facility] [address] [place], [address] LEUK ESTERASE Normal Negative [facility] Comment on above: Order Comment: SENT LABEL TO MS3 TO COLLECTCOLLECTOR TO SPECIFY Result Comment: JAYY ENT DISCHARGED Performed By: #### L 400.0001 ####[facility] [address] [place], [address] Mucus Ql (Urine sed) Normal [facility] Comment on above: Order Comment: SENT LABEL TO MS3 TO COLLECTCOLLECTOR TO SPECIFY Result Comment: JAYY ENT DISCHARGED Performed By: #### L 400.0001 ####[facility] [address] [place], [address] Nitrite Ql (U) Normal Negative [facility] Comment on above: Order Comment: SENT LABEL TO MS3 TO COLLECTCOLLECTOR TO SPECIFY Result Comment: JAYY ENT DISCHARGED Performed By: #### L 400.0001 ####[facility] [address] [place], [address] OCCULT BLOOD-UR Normal Negative [facility] Comment on above: Order Comment: SENT LABEL TO MS3 TO COLLECTCOLLECTOR TO SPECIFY Result Comment: JAYY ENT DISCHARGED Performed By: #### L 400.0001 ####[facility] [address] [place], [address] pH UR Normal 5.0 - 8.0 [facility] Comment on above: Order Comment: SENT LABEL TO MS3 TO COLLECTCOLLECTOR TO SPECIFY Result Comment: JAYY ENT DISCHARGED Performed By: #### L 400.0001 ####[facility] [address] [place], [address] PROT DIPSTX Normal Negative [facility] Comment on above: Order Comment: SENT LABEL TO MS3 TO COLLECTCOLLECTOR TO SPECIFY Result Comment: JAYY ENT DISCHARGED Performed By: #### L 400.0001 ####[facility] [address] [place], [address] RBC Normal 0-5 [facility] Comment on above: Order Comment: SENT LABEL TO MS3 TO COLLECTCOLLECTOR TO SPECIFY Result Comment: JAYY ENT DISCHARGED Performed By: #### L 400.0001 ####[facility] [address] [place], [address] SP.GR. DIPSTX Normal 1.002-1.030 [facility] Comment on above: Order Comment: SENT LABEL TO MS3 TO COLLECTCOLLECTOR TO SPECIFY Result Comment: JAYY ENT DISCHARGED Performed By: #### L 400.0001 ####[facility] [address] [place], [address] UR Preservative Normal [facility] Comment on above: Order Comment: SENT LABEL TO MS3 TO COLLECTCOLLECTOR TO SPECIFY Result Comment: JAYY ENT DISCHARGED Performed By: #### L 400.0001 ####[facility] [address] [place], [address] UROBILI Normal Normal [facility] Comment on above: Order Comment: SENT LABEL TO MS3 TO COLLECTCOLLECTOR TO SPECIFY Result Comment: JAYY ENT DISCHARGED Performed By: #### L 400.0001 ####[facility] [address] [place], [address] WBC Normal 0-5 [facility] Comment on above: Order Comment: SENT LABEL TO MS3 TO COLLECTCOLLECTOR TO SPECIFY Result Comment: JAYY ENT DISCHARGED Performed By: #### L 400.0001 ####[facility] [address] [place], [address] CNPTOUTREACHon 07-11-2024 CNPTOUTREACH Normal [facility] Absolute lymphocyte countOrd ered By: Nando Wiggins on 07-09-2024 Lymphocytes Auto (Unsp spec) [#/Vol] 1.88 10*3/uL 0.83-4.51 [facility] Automated lymphocyte count a s percentage of total leukocytesOrdered By: Nando Wiggins on 07-09-2024 Lymphocytes/100 WBC Auto (Unsp spec) 12.0 % Low 19-41 [facility] Basophil percentageOrdered B y: Nando Wiggins on 07-09-2024 Basophils/100 WBC (Bld) 0.2 % 0-1 [facility] Carbon dioxide measurementOr dered By: Nando Wiggins on 07-09-2024 CO2 [Moles/Vol] 29.0 mmol/L 21.0-32.0 [facility] Chloride measurementOrdered By: Nando Wiggins on 07-09-2024 Chloride [Moles/Vol] 89 mmol/L Low 98-107 [facility] Eosinophil percentageOrdered By: Nando Wiggins on 07-09-2024 Eosinophils/100 WBC (Bld) 0.4 % 0-5 [facility] Erythrocyte distribution wid th ratioOrdered By: Nando Wiggins on 07-09-2024 Erythrocyte distribution width (RBC) [Ratio] 16.9 % High 11.6-14.6 [facility] Erythrocyte distribution wid th standard deviationOrdered By: Nando Wiggins on 07-09-2024 Erythrocyte distribution width (RBC) [Ratio] 57.9 fl High 35.1-43.9 [facility] Glomerular filtration rate ( GFR) estimationOrdered By: Nando Wiggins on 07-09-2024 GFR/1.73 sq M.predicted among non-blacks MDRD (S/P/Bld) [Vol rate/Area] 11 mL/min/{1.73_m2} Low >60 [facility] Glucose measurementOrdered B y: Nando Wiggins on 07-09-2024 Glucose [Mass/Vol] 131 mg/dL High 74-106 [facility] Hematocrit Auto (Bld) [Volum e fraction]Ordered By: Nando Wiggins on 07-09-2024 Hematocrit (Bld) [Volume fraction] 26.0 % Low 40-54 [facility] Hemoglobin measurementOrdere d By: Nando Wiggins on 07-09-2024 Hemoglobin (Bld) [Mass/Vol] 7.7 g/dL Low 13.0-16.5 [facility] Immature granulocytes/100 WB C Auto (Bld)Ordered By: Nando Wiggins on 07-09-2024 Immature granulocytes/100 WBC (Bld) 0.600 % 0.0-0.9 [facility] MCV (mean corpuscular volume ) determinationOrdered By: Nando Wiggins on 07-09-2024 MCV (RBC) [Entitic vol] 94.9 fL High 80-94 [facility] Mean corpuscular hemoglobin (MCH) determinationOrdered By: Nando Wiggins on 07-09-2024 MCH (RBC) [Entitic mass] 28.1 pg 27.0-32.0 [facility] Monocyte percentageOrdered B y: Nando Wiggins on 07-09-2024 Monocytes/100 WBC (Bld) 7.0 % 0-10 [facility] Neutrophil percentageOrdered By: Nando Wiggins on 07-09-2024 Neutrophils/100 WBC (Bld) 79.8 % High 47-70 [facility] Platelet countOrdered By: Kathie Wiggins on 07-09-2024 Platelets (Bld) [#/Vol] 258 10*3/uL 150-450 [facility] Potassium measurementOrdered By: Nando Wiggins on 07-09-2024 Potassium [Moles/Vol] 3.6 mmol/L 3.5-5.1 [facility] RBC Auto (Bld) [#/Vol]Ordere d By: Nando Wiggins on 07-09-2024 RBC (Bld) [#/Vol] 2.74 10*6/uL Low 4.6-6.2 [facility] Serum or plasma calcium lilli urement (mass/volume)Ordered By: Nando Wiggins on 07-09-2024 Calcium [Mass/Vol] 9.2 mg/dL 8.5-10.1 [facility] Serum or plasma creatinine m easurement (mass/volume)Ordered By: Nando Wiggins on 07-09-2024 Creatinine [Mass/Vol] 5.11 mg/dL High 0.70-1.30 [facility] Serum or plasma urea nitroge n measurement (mass/volume)Ordered By: Kathiebiancalilian Wiggins on 07-09-2024 Urea nitrogen [Mass/Vol] 61 mg/dL High 7-18 [facility] Sodium levelOrdered By: Deb Wiggins on 07-09-2024 Sodium [Moles/Vol] 129 mmol/L Low 136-145 [facility] White blood cell (WBC) count Ordered By: Kathiebiancasrinathwolf [place] on 07-09-2024 WBC (Bld) [#/Vol] 15.7 10*3/uL High 4.4-11.0 [facility] 12 Lead EKGon 07-07-2024 12 Lead EKG Normal [facility] Absolute lymphocyte countOrd ered By: Alicia Loo on 07-07-2024 Lymphocytes Auto (Unsp spec) [#/Vol] 1.18 10*3/uL 0.83-4.51 [facility] Automated lymphocyte count a s percentage of total leukocytesOrdered By: Alicia Loo on 07-07-2024 Lymphocytes/100 WBC Auto (Unsp spec) 13.1 % Low 19-41 [facility] Basic Metabolic Profile (BMP )on 07-07-2024 BUN/CRE 11.0 RATIO Normal 10-20 [facility] Comment on above: Order Comment: 'TROP ' Serial specimen #1, #2 or #3: 1 Performed By: #### L 500.2500, L100.0100, L501.4020 ####[facility] [address] [place], [address] CA,Total 8.5 mg/dL Normal 8.5-10.1 [facility] Comment on above: Order Comment: 'TROP ' Serial specimen #1, #2 or #3: 1 Performed By: #### L 500.2500, L100.0100, L501.4020 ####[facility] [address] [place], [address] Chloride [Moles/Vol] 91 mmol/L Low 98-107 [facility] Comment on above: Order Comment: 'TROP ' Serial specimen #1, #2 or #3: 1 Performed By: #### L 500.2500, L100.0100, L501.4020 ####[facility] [address] [place], [address] CO2 [Moles/Vol] 33.0 mmol/L High 21.0-32.0 [facility] Comment on above: Order Comment: 'TROP ' Serial specimen #1, #2 or #3: 1 Performed By: #### L 500.2500, L100.0100, L501.4020 ####[facility] [address] [place], [address] Creatinine [Mass/Vol] 3.01 mg/dL High 0.70-1.30 [facility] Comment on above: Order Comment: 'TROP ' Serial specimen #1, #2 or #3: 1 Result Comment: The validity of the calculated GFR GFRAA in patients over70 years has not been determined. Clinical correlation isessential. Performed By: #### L 500.2500, L100.0100, L501.4020 ####[facility] [address] [place], [address] ECRCL 19.28 ml/min Normal [facility] Comment on above: Order Comment: 'TROP ' Serial specimen #1, #2 or #3: 1 Performed By: #### L 500.2500, L100.0100, L501.4020 ####[facility] [address] [place], [address] EST GFR - AA 26 mL/min Low >60 [facility] Comment on above: Order Comment: 'TROP ' Serial specimen #1, #2 or #3: 1 Result Comment: Afri can Trinidadian GFR Calc Performed By: #### L 500.2500, L100.0100, L501.4020 ####[facility] [address] [place], [address] GAP 8 Normal 5-15 [facility] Comment on above: Order Comment: 'TROP ' Serial specimen #1, #2 or #3: 1 Performed By: #### L 500.2500, L100.0100, L501.4020 ####[facility] [address] [place], [address] GFR/1.73 sq M.predicted among non-blacks MDRD (S/P/Bld) [Vol rate/Area] 21 mL/min/{1.73_m2} Low >60 [facility] Comment on above: Order Comment: 'TROP ' Serial specimen #1, #2 or #3: 1 Result Comment: Non- GFR Calc Performed By: #### L 500.2500, L100.0100, L501.4020 ####[facility] [address] [place], [address] Glucose [Mass/Vol] 157 mg/dL High 74-106 [facility] Comment on above: Order Comment: 'TROP ' Serial specimen #1, #2 or #3: 1 Result Comment: Fast ing Glucose result greater than or equal to 126 mg/dLsuggests DIABETES MELLITUS per A.D.A. criteria. Performed By: #### L 500.2500, L100.0100, L501.4020 ####[facility] [address] [place], [address] Potassium [Moles/Vol] 3.4 mmol/L Low 3.5-5.1 [facility] Comment on above: Order Comment: 'TROP ' Serial specimen #1, #2 or #3: 1 Performed By: #### L 500.2500, L100.0100, L501.4020 ####[facility] [address] [place], [address] Sodium [Moles/Vol] 132 mmol/L Low 136-145 [facility] Comment on above: Order Comment: 'TROP ' Serial specimen #1, #2 or #3: 1 Performed By: #### L 500.2500, L100.0100, L501.4020 ####[facility] [address] [place], [address] Urea nitrogen [Mass/Vol] 33 mg/dL High 7-18 [facility] Comment on above: Order Comment: 'TROP ' Serial specimen #1, #2 or #3: 1 Performed By: #### L 500.2500, L100.0100, L501.4020 ####[facility] [address] [place], [address] Basophil percentageOrdered B y: Remus Ungur on 07-07-2024 Basophils/100 WBC (Bld) 0.3 % 0-1 [facility] Bilirubin Test strip Ql (U)O rdered By: Remus Ungur on 07-07-2024 Bilirubin Ql (U) 1 mg/dL High Negative [facility] Brain/Head without Contrasto n 07-07-2024 Brain/Head without Contrast Normal [facility] CBC W/Diff, Automatedon 06-23 Absolute Lymph 1.18 X10 3/uL Normal 0.83-4.51 [facility] Comment on above: Performed By: #### L 500.2500, L100.0100, L501.4020 ####[facility] [address] [place], [address] Absolute Neut 6.7 X10 3/uL Normal 2.0-7.7 [facility] Comment on above: Performed By: #### L 500.2500, L100.0100, L501.4020 ####[facility] [address] [place], [address] Basophils/100 WBC (Bld) 0.3 % Normal 0-1 [facility] Comment on above: Performed By: #### L 500.2500, L100.0100, L501.4020 ####[facility] [address] [place], [address] Eosinophils/100 WBC (Bld) 0.1 % Normal 0-5 [facility] Comment on above: Performed By: #### L 500.2500, L100.0100, L501.4020 ####[facility] [address] [place], [address] Erythrocyte distribution width (RBC) [Ratio] 16.6 % High 11.6-14.6 [facility] Comment on above: Performed By: #### L 500.2500, L100.0100, L501.4020 ####[facility] [address] [place], [address] Hematocrit (Bld) [Volume fraction] 27.0 % Low 40-54 [facility] Comment on above: Performed By: #### L 500.2500, L100.0100, L501.4020 ####[facility] [address] [place], [address] Hemoglobin (Bld) [Mass/Vol] 8.1 g/dL Low 13.0-16.5 [facility] Comment on above: Performed By: #### L 500.2500, L100.0100, L501.4020 ####[facility] [address] [place], [address] IG% 0.300 Normal 0.0-0.9 [facility] Comment on above: Result Comment: IG% - Immature Granulocytes (promyelocytes, myelocytes andmetamyelocytes) > 1% indicates that a LEFT SHIFT is Present. Performed By: #### L 500.2500, L100.0100, L501.4020 ####[facility] [address] [place], [address] Lymphocytes/100 WBC (Bld) 13.1 % Low 19-41 [facility] Comment on above: Performed By: #### L 500.2500, L100.0100, L501.4020 ####[facility] [address] [place], [address] MCH (RBC) [Entitic mass] 28.4 pg Normal 27.0-32.0 [facility] Comment on above: Performed By: #### L 500.2500, L100.0100, L501.4020 ####[facility] [address] [place], [address] MCHC (RBC) [Mass/Vol] 30.0 g/dL Low 32-36 [facility] Comment on above: Performed By: #### L 500.2500, L100.0100, L501.4020 ####[facility] [address] [place], [address] MCV (RBC) [Entitic vol] 94.7 fL High 80-94 [facility] Comment on above: Performed By: #### L 500.2500, L100.0100, L501.4020 ####[facility] [address] [place], [address] Monocytes/100 WBC (Bld) 11.4 % High 0-10 [facility] Comment on above: Performed By: #### L 500.2500, L100.0100, L501.4020 ####[facility] [address] [place], [address] Neutrophils/100 WBC (Bld) 74.8 % High 47-70 [facility] Comment on above: Performed By: #### L 500.2500, L100.0100, L501.4020 ####[facility] [address] [place], [address] Nucleated RBC (Bld) [#/Vol] 0 10*3/uL Normal 0-5 [facility] Comment on above: Performed By: #### L 500.2500, L100.0100, L501.4020 ####[facility] [address] [place], [address] Platelet mean volume (Bld) [Entitic vol] 10.7 fL Normal 6.2-12.0 [facility] Comment on above: Performed By: #### L 500.2500, L100.0100, L501.4020 ####[facility] [address] [place], [address] Platelets (Bld) [#/Vol] 211 10*3/uL Normal 150-450 [facility] Comment on above: Performed By: #### L 500.2500, L100.0100, L501.4020 ####[facility] [address] [place], [address] RBC (Bld) [#/Vol] 2.85 10*6/uL Low 4.6-6.2 [facility] Comment on above: Performed By: #### L 500.2500, L100.0100, L501.4020 ####[facility] [address] [place], [address] RDW SD 56.3 fl High 35.1-43.9 [facility] Comment on above: Performed By: #### L 500.2500, L100.0100, L501.4020 ####[facility] [address] [place], [address] WBC (Bld) [#/Vol] 9.0 10*3/uL Normal 4.4-11.0 [facility] Comment on above: Performed By: #### L 500.2500, L100.0100, L501.4020 ####[facility] [address] [place], [address] Carbon dioxide measurementOr dered By: Alicia Loo on 07-07-2024 CO2 [Moles/Vol] 33.0 mmol/L High 21.0-32.0 [facility] Chest 1 View (Portable)on Chest 1 View (Portable) Normal [facility] Chloride measurementOrdered By: Alicia Loo on 07-07-2024 Chloride [Moles/Vol] 91 mmol/L Low 98-107 [facility] Emergency Department Summary on 07-07-2024 Emergency Department Summary Normal [facility] Eosinophil percentageOrdered By: Alicia Loo on 07-07-2024 Eosinophils/100 WBC (Bld) 0.1 % 0-5 [facility] Erythrocyte distribution wid th ratioOrdered By: Alicia Loo on 07-07-2024 Erythrocyte distribution width (RBC) [Ratio] 16.6 % High 11.6-14.6 [facility] Erythrocyte distribution wid th standard deviationOrdered By: Alicia Loo on 07-07-2024 Erythrocyte distribution width (RBC) [Ratio] 56.3 fl High 35.1-43.9 [facility] Glomerular filtration rate ( GFR) estimationOrdered By: Alicia Loo on 07-07-2024 GFR/1.73 sq M.predicted among non-blacks MDRD (S/P/Bld) [Vol rate/Area] 21 mL/min/{1.73_m2} Low >60 [facility] Glucose measurementOrdered B y: Alicia Loo on 07-07-2024 Glucose [Mass/Vol] 157 mg/dL High 74-106 [facility] Hematocrit Auto (Bld) [Volum e fraction]Ordered By: Alicia Loo on 07-07-2024 Hematocrit (Bld) [Volume fraction] 27.0 % Low 40-54 [facility] Hemoglobin measurementOrdere d By: Alicia Loo on 07-07-2024 Hemoglobin (Bld) [Mass/Vol] 8.1 g/dL Low 13.0-16.5 [facility] Immature granulocytes/100 WB C Auto (Bld)Ordered By: Alicia Loo on 07-07-2024 Immature granulocytes/100 WBC (Bld) 0.300 % 0.0-0.9 [facility] Influenza virus A and B and SARS-CoV-2 (COVID-19) and Respiratory syncytial virus RNAOrdered By: Alicia Loo on 07-07-2024 SARS-CoV-2 (COVID-19) RNA EZEKIEL+probe Ql (Unsp spec) [facility] Ketones Test strip Ql (U)Ord ered By: Alicia Loo on 07-07-2024 Ketones Ql (U) 5 mg/dl High Negative [facility] L501.4020on 07-07-2024 TROPONIN-I HS 62 pg/mL Normal 3.0-78.0 [facility] Comment on above: Order Comment: 'TROP ' Serial specimen #1, #2 or #3: 1 Result Comment: Zoë mazariegos Note: New Test Units and Gender Specific Reference Ranges. For more information see Policy Stat Procedure [place] High Sensitivity Troponin (TNIH) and attachments. Performed By: #### L 500.2500, L100.0100, L501.4020 ####[facility] [address] [place], [address] M100.678on 07-07-2024 M100.678 Pending SARS-CoV-2 (COVID 19) Negative INFLUENZA A Negative INFLUENZA B Negative RSV PCR Negative Normal [facility] Comment on above: Performed By: #### M 100.678 ####[facility] [address] [place], [address] MCV (mean corpuscular volume ) determinationOrdered By: Remus Loo on 07-07-2024 MCV (RBC) [Entitic vol] 94.7 fL High 80-94 [facility] Mean corpuscular hemoglobin (MCH) determinationOrdered By: Remus Ungvaughn on 07-07-2024 MCH (RBC) [Entitic mass] 28.4 pg 27.0-32.0 [facility] Monocyte percentageOrdered B y: Remus Ungur on 07-07-2024 Monocytes/100 WBC (Bld) 11.4 % High 0-10 [facility] Mucus LM Ql (Urine sed)Order ed By: Remus Ungur on 07-07-2024 Mucus Ql (Urine sed) 0 SEEN /hpf [facility] Neutrophil percentageOrdered By: Remus Ungvaughn on 07-07-2024 Neutrophils/100 WBC (Bld) 74.8 % High 47-70 [facility] Nitrite Test strip Ql (U)Ord ered By: Remus Ungvaughn on 07-07-2024 Nitrite Ql (U) Negative Negative [facility] Platelet countOrdered By: Sowmya belgica Eze on 07-07-2024 Platelets (Bld) [#/Vol] 211 10*3/uL 150-450 [facility] Potassium measurementOrdered By: Alicia Eze on 07-07-2024 Potassium [Moles/Vol] 3.4 mmol/L Low 3.5-5.1 [facility] Protein Test strip Ql (U)Ord ered By: Alicia Loo on 07-07-2024 Protein Ql (U) 100 mg/dl High Negative [facility] RBC Auto (Bld) [#/Vol]Ordere d By: Kae Eze on 07-07-2024 RBC (Bld) [#/Vol] 2.85 10*6/uL Low 4.6-6.2 [facility] Serum or plasma calcium lilli urement (mass/volume)Ordered By: Alicia Loo on 07-07-2024 Calcium [Mass/Vol] 8.5 mg/dL 8.5-10.1 [facility] Serum or plasma creatinine m easurement (mass/volume)Ordered By: Alicia Loo on 07-07-2024 Creatinine [Mass/Vol] 3.01 mg/dL High 0.70-1.30 [facility] Serum or plasma urea nitroge n measurement (mass/volume)Ordered By: Alicia Loo on 07-07-2024 Urea nitrogen [Mass/Vol] 33 mg/dL High 7-18 [facility] Sodium levelOrdered By: Michael Loo on 07-07-2024 Sodium [Moles/Vol] 132 mmol/L Low 136-145 [facility] Squamous epithelial cells de tection in urine sediment by light microscopyOrdered By: Alicia Loo on 07-07-2024 Epithelial cells.squamous LM Ql (Urine sed) 0 SEEN /hpf 0-5 [facility] Troponin IOrdered By: Alicia Loo on 07-07-2024 Troponin I 62 pg/mL 3.0-78.0 [facility] Urinalysis, Completeon 07-07 RBC 0 SEEN Normal 0-5 [facility] Comment on above: Order Comment: COLOR OF URINE MAY AFFECT DIPSTICK RESULTS.CLEAN CATCH Performed By: #### L 400.0001 ####[facility] [address] [place], [address] WBC 0-5 SEEN Normal 0-5 [facility] Comment on above: Order Comment: COLOR OF URINE MAY AFFECT DIPSTICK RESULTS.CLEAN CATCH Performed By: #### L 400.0001 ####[facility] [address] [place], [address] BACTERIA 0 SEEN Normal None Seen [facility] Comment on above: Order Comment: COLOR OF URINE MAY AFFECT DIPSTICK RESULTS.CLEAN CATCH Performed By: #### L 400.0001 ####[facility] [address] [place], [address] EPI,SQUAMOUS 0 SEEN Normal 0-5 [facility] Comment on above: Order Comment: COLOR OF URINE MAY AFFECT DIPSTICK RESULTS.CLEAN CATCH Performed By: #### L 400.0001 ####[facility] [address] [place], [address] Mucus Ql (Urine sed) 0 SEEN Normal [facility] Comment on above: Order Comment: COLOR OF URINE MAY AFFECT DIPSTICK RESULTS.CLEAN CATCH Performed By: #### L 400.0001 ####[facility] [address] [place], [address] Urine clarityOrdered By: Kae Loo on 07-07-2024 Clarity (U) Clear Clear [facility] Urine color determinationOrd ered By: Alicia Loo on 07-07-2024 Color (U) Lilia Yellow [facility] Urine glucose detectionOrder ed By: Alicia Loo on 07-07-2024 Glucose Ql (U) 50 mg/dl High Normal [facility] Urine leukocyte esterase det ection by dipstickOrdered By: Alicia Loo on 07-07-2024 Leukocyte esterase Test strip Ql (U) 25 /ul High Negative [facility] Urine pHOrdered By: Alicia Lam gur on 07-07-2024 pH (U) 5.0 [pH] 5.0 - 8.0 [facility] Urine sediment bacteria coun t by microscopy (number/high power field)Ordered By: Alicia Loo on 07-07-2024 Bacteria LM.HPF (Urine sed) [#/Area] 0 /[HPF] None Seen [facility] Urine specific gravity measu rementOrdered By: [facility] Loo on 07-07-2024 Specific gravity (U) [Rel density] 1.015 1.002-1.030 [facility] Urine urobilinogen measureme ntOrdered By: [facility] Loo on 07-07-2024 Urobilinogen Ql (U) Normal mg/dl Normal [facility] White blood cell (WBC) count Or[facility]: [facility] on 07-07-2024 WBC (Bld) [#/Vol] 9.0 10*3/uL 4.4-11.0 [facility] White blood cell countOrdere d By: [facility] Loo on 07-07-2024 White blood cell count 0-5 SEEN /hpf 0-5 [facility] Bedside Glucoseon 07-04-2024 FINGERSTICK GLU 114 mg/dL High 74-106 [facility] Comment on above: Result Comment: FANG VAZQUEZ OF PATIENT CARE PER NURSING PROTOCOL Performed By: #### L 501.080 ####[facility] [address] [place], [place], [id number] [facility] deOrdered By: Des Ruelas on 07-04-2024 Glucose [Mass/Vol] 114 mg/dL High 74-106 [facility] Absolute lymphocyte countOrd ered By: Eric Franklin on 07-03-2024 Lymphocytes Auto (Unsp spec) [#/Vol] 1.08 10*3/uL 0.83-4.51 [facility] Automated blood erythrocyte countOrdered By: Ericjorge Franklin on 07-03-2024 RBC (Bld) [#/Vol] 2.75 10*6/uL Low 4.6-6.2 [facility] Comment on above: Performed By: #### L 500.4050, L100.0100 ####[facility] [address] [place], [address] Automated blood hematocrit ( percentage)Ordered By: Eric Franklin on 07-03-2024 Hematocrit (Bld) [Volume fraction] 25.7 % Low 40-54 [facility] Comment on above: Performed By: #### L 500.4050, L100.0100 ####[facility] [address] [place], [address] Automated lymphocyte count a s percentage of total leukocytesOrdered By: Eric Franklin on 07-03-2024 Lymphocytes/100 WBC Auto (Unsp spec) 12.6 % Low 19-41 [facility] Basophil percentageOrdered B y: Eric Franklin on 07-03-2024 Basophils/100 WBC (Bld) 0.2 % Normal 0-1 [facility] Comment on above: Performed By: #### L 500.4050, L100.0100 ####[facility] [address] [place], [address] Bilirubin, totalOrdered By: Eric Franklin on 07-03-2024 Bilirubin [Mass/Vol] 0.60 mg/dL Normal 0.20-1.00 [facility] Comment on above: Result Comment: For patients on eltrombopag therapy, use of Dimension [place] TBIL is not recommended. Performed By: #### L 500.4050, L100.0100 ####[facility] [address] [place], [address] CBC W/Diff, Automatedon 06-23 Absolute Lymph 1.08 X10 3/uL Normal 0.83-4.51 [facility] Comment on above: Performed By: #### L 500.4050, L100.0100 ####[facility] [address] [place], [address] Absolute Neut 6.2 X10 3/uL Normal 2.0-7.7 [facility] Comment on above: Performed By: #### L 500.4050, L100.0100 ####[facility] [address] [place], [address] IG% 0.700 Normal 0.0-0.9 [facility] Comment on above: Result Comment: IG% - Immature Granulocytes (promyelocytes, myelocytes andmetamyelocytes) > 1% indicates that a LEFT SHIFT is Present. Performed By: #### L 500.4050, L100.0100 ####[facility] [address] [place], [address] Lymphocytes/100 WBC (Bld) 12.6 % Low 19-41 [facility] Comment on above: Performed By: #### L 500.4050, L100.0100 ####[facility] [address] [place], [address] MCHC (RBC) [Mass/Vol] 31.5 g/dL Low 32-36 [facility] Comment on above: Performed By: #### L 500.4050, L100.0100 ####[facility] [address] [place], [address] Nucleated RBC (Bld) [#/Vol] 0 10*3/uL Normal 0-5 [facility] Comment on above: Performed By: #### L 500.4050, L100.0100 ####[facility] [address] [place], [address] Platelet mean volume (Bld) [Entitic vol] 11.1 fL Normal 6.2-12.0 [facility] Comment on above: Performed By: #### L 500.4050, L100.0100 ####[facility] [address] [place], [address] RDW SD 56.7 fl High 35.1-43.9 [facility] Comment on above: Performed By: #### L 500.4050, L100.0100 ####[facility] [address] [place], [address] Carbon dioxide measurementOr dered By: Eric Franklin on 07-03-2024 CO2 [Moles/Vol] 27.0 mmol/L Normal 21.0-32.0 [facility] Comment on above: Performed By: #### L 500.4050, L100.0100 ####[facility] [address] [place], [address] Chloride measurementOrdered By: Eric Franklin on 07-03-2024 Chloride [Moles/Vol] 96 mmol/L Low 98-107 [facility] Comment on above: Performed By: #### L 500.4050, L100.0100 ####[facility] [address] [place], [address] Comprehensive Metabolic Prof ilon 07-03-2024 Albumin/Globulin [Mass ratio] 0.5 {ratio} Low 0.9-2.4 [facility] Comment on above: Performed By: #### L 500.4050, L100.0100 ####[facility] [address] [place], [address] ALK P 63 U/L Normal 45-117 [facility] Comment on above: Performed By: #### L 500.4050, L100.0100 ####[facility] [address] [place], [address] AST [Catalytic activity/Vol] 26 U/L Normal 15-37 [facility] Comment on above: Result Comment: Mode rate Hemolysis, Result may be falsely increased. Performed By: #### L 500.4050, L100.0100 ####[facility] [address] [place], [address] BUN/CRE 12.2 RATIO Normal 10-20 [facility] Comment on above: Performed By: #### L 500.4050, L100.0100 ####[facility] [address] [place], [address] CA,Total 8.1 mg/dL Low 8.5-10.1 [facility] Comment on above: Performed By: #### L 500.4050, L100.0100 ####[facility] [address] [place], [address] ECRCL 20.19 ml/min Normal [facility] Comment on above: Performed By: #### L 500.4050, L100.0100 ####[facility] [address] [place], [address] EST GFR - AA 25 mL/min Low >60 [facility] Comment on above: Result Comment: Afri can [place] GFR Calc Performed By: #### L 500.4050, L100.0100 ####[facility] [address] [place], [address] GAP 11 Normal 5-15 [facility] Comment on above: Performed By: #### L 500.4050, L100.0100 ####[facility] [address] [place], [address] T PROT 7.1 g/dL Normal 6.4-8.2 [facility] Comment on above: Performed By: #### L 500.4050, L100.0100 ####[facility] [address] [place], [address] Emergency Department Summary on 07-03-2024 Emergency Department Summary Normal [facility] Eosinophil percentageOrdered By: Eric Franklin on 07-03-2024 Eosinophils/100 WBC (Bld) 0.3 % Normal 0-5 [facility] Comment on above: Performed By: #### L 500.4050, L100.0100 ####[facility] [address] [place], [address] Erythrocyte distribution wid th ratioOrdered By: Eric Franklin on 07-03-2024 Erythrocyte distribution width (RBC) [Ratio] 17.2 % High 11.6-14.6 [facility] Comment on above: Performed By: #### L 500.4050, L100.0100 ####[facility] [address] [place], [address] Erythrocyte distribution wid th standard deviationOrdered By: Eric Lechugao on 07-03-2024 Erythrocyte distribution width (RBC) [Ratio] 56.7 fl High 35.1-43.9 [facility] Glomerular filtration rate ( GFR) estimationOrdered By: Eric Franklin on 07-03-2024 GFR/1.73 sq M.predicted among non-blacks MDRD (S/P/Bld) [Vol rate/Area] 21 mL/min/{1.73_m2} Low >60 [facility] Comment on above: Result Comment: Non- GFR Calc Performed By: #### L 500.4050, L100.0100 ####[facility] [address] [place], [address] Glucose measurementOrdered B y: Eric Franklin on 07-03-2024 Glucose [Mass/Vol] 161 mg/dL High 74-106 [facility] Comment on above: Result Comment: Fast ing Glucose result greater than or equal to 126 mg/dLsuggests DIABETES MELLITUS per A.D.A. criteria. Performed By: #### L 500.4050, L100.0100 ####[facility] [address] [place], [address] Hemoglobin measurementOrdere d By: Eric Franklin on 07-03-2024 Hemoglobin (Bld) [Mass/Vol] 8.1 g/dL Low 13.0-16.5 [facility] Comment on above: Performed By: #### L 500.4050, L100.0100 ####[facility] [address] [place], [address] Immature granulocytes/100 WB C Auto (Bld)Ordered By: Eric Franklin on 07-03-2024 Immature granulocytes/100 WBC (Bld) 0.700 % 0.0-0.9 [facility] MCV (mean corpuscular volume ) determinationOrdered By: Eric Franklin on 07-03-2024 MCV (RBC) [Entitic vol] 93.5 fL Normal 80-94 [facility] Comment on above: Performed By: #### L 500.4050, L100.0100 ####[facility] [address] [place], [address] Mean corpuscular hemoglobin (MCH) determinationOrdered By: Eric Franklin on 07-03-2024 MCH (RBC) [Entitic mass] 29.5 pg Normal 27.0-32.0 [facility] Comment on above: Performed By: #### L 500.4050, L100.0100 ####[facility] [address] [place], [address] Monocyte percentageOrdered B y: Eric Franklin on 07-03-2024 Monocytes/100 WBC (Bld) 14.5 % High 0-10 [facility] Comment on above: Performed By: #### L 500.4050, L100.0100 ####[facility] [address] [place], [address] Neutrophil percentageOrdered By: Eric Franklin on 07-03-2024 Neutrophils/100 WBC (Bld) 71.7 % High 47-70 [facility] Comment on above: Performed By: #### L 500.4050, L100.0100 ####[facility] [address] [place], [address] No Panel InformationOrdered By: Eric Franklin on 07-03-2024 26 U/L 15-37 [facility] Platelet countOrdered By: Ug o Franklin on 07-03-2024 Platelets (Bld) [#/Vol] 194 10*3/uL Normal 150-450 [facility] Comment on above: Performed By: #### L 500.4050, L100.0100 ####[facility] [address] [place], [address] Potassium measurementOrdered By: Ericjorge Franklin on 07-03-2024 Potassium [Moles/Vol] 4.2 mmol/L Normal 3.5-5.1 [facility] Comment on above: Result Comment: Mode rate Hemolysis, Result may be falsely increased. Performed By: #### L 500.4050, L100.0100 ####[facility] [address] [place], [address] Serum globulin measurementOr dered By: Ericjorge Lechugao on 07-03-2024 Globulin (S) [Mass/Vol] 4.7 g/dL High 2.2-4.2 [facility] Comment on above: Performed By: #### L 500.4050, L100.0100 ####[facility] [address] [place], [address] Serum or plasma alanine hawkins otransferase (ALT) measurementOrdered By: Eric Franklin on 07-03-2024 ALT [Catalytic activity/Vol] 13 U/L Low 16-61 [facility] Comment on above: Performed By: #### L 500.4050, L100.0100 ####[facility] [address] [place], [address] Serum or plasma albumin lilli urement (mass/volume)Ordered By: Ericjorge Lechugao on 07-03-2024 Albumin [Mass/Vol] 2.4 g/dL Low 3.2-5.0 [facility] Comment on above: Performed By: #### L 500.4050, L100.0100 ####[facility] [address] [place], [address] Serum or plasma alkaline penelope sphatase measurementOrdered By: Eric Franklin on 07-03-2024 ALP [Catalytic activity/Vol] 63 U/L 45-117 [facility] Serum or plasma calcium lilli urement (mass/volume)Ordered By: Ericjorge Lechugao on 07-03-2024 Calcium [Mass/Vol] 8.1 mg/dL Low 8.5-10.1 [facility] Serum or plasma creatinine m easurement (mass/volume)Ordered By: Eric Franklin on 07-03-2024 Creatinine [Mass/Vol] 3.04 mg/dL High 0.70-1.30 [facility] Comment on above: Result Comment: The validity of the calculated GFR GFRAA in patients over70 years has not been determined. Clinical correlation isessential. Performed By: #### L 500.4050, L100.0100 ####[facility] [address] [place], [address] Serum or plasma urea nitroge n measurement (mass/volume)Ordered By: Eric Franklin on 07-03-2024 Urea nitrogen [Mass/Vol] 37 mg/dL High 7-18 [facility] Comment on above: Performed By: #### L 500.4050, L100.0100 ####[facility] [address] [place], [address] Sodium levelOrdered By: Ericjorge Franklin on 07-03-2024 Sodium [Moles/Vol] 134 mmol/L Low 136-145 [facility] Comment on above: Performed By: #### L 500.4050, L100.0100 ####[facility] [address] [place], [address] Total proteinOrdered By: Eric Franklin on 07-03-2024 Protein [Mass/Vol] 7.1 g/dL 6.4-8.2 [facility] White blood cell (WBC) count Ordered By: Ericjorge Franklin on 07-03-2024 WBC (Bld) [#/Vol] 8.6 10*3/uL Normal 4.4-11.0 [facility] Comment on above: Performed By: #### L 500.4050, L100.0100 ####[facility] [address] [place], [address] 12 Lead EKGon 07-02-2024 12 Lead EKG Normal [facility] Absolute lymphocyte countOrd ered By: Nando Wiggins on 07-02-2024 Lymphocytes Auto (Unsp spec) [#/Vol] 1.88 10*3/uL 0.83-4.51 [facility] Automated lymphocyte count a s percentage of total leukocytesOrdered By: Nando Wiggins on 07-02-2024 Lymphocytes/100 WBC Auto (Unsp spec) 20.3 % 19-41 [facility] Basic Metabolic Profile (BMP )on 07-02-2024 BUN/CRE 18.1 RATIO Normal 10-20 [facility] Comment on above: Performed By: #### L 500.2500 ####[facility] [address] [place] [id number] [place],Total 9.1 mg/dL Normal 8.5-10.1 [facility] Comment on above: Performed By: #### L 500.2500 ####[facility] [address] [place] [id number] Chloride [Moles/Vol] 98 mmol/L Normal 98-107 [facility] Comment on above: Performed By: #### L 500.2500 ####[facility] [address] [place] [id number] CO2 [Moles/Vol] 26.0 mmol/L Normal 21.0-32.0 [facility] Comment on above: Performed By: #### L 500.2500 ####[facility] [address] [place], [address] Creatinine [Mass/Vol] 4.63 mg/dL High 0.70-1.30 [facility] Comment on above: Result Comment: The validity of the calculated GFR GFRAA in patients over70 years has not been determined. Clinical correlation isessential. Performed By: #### L 500.2500 ####[facility] [address] [place] [id number] ECRCL 12.30 ml/min Normal [facility] Comment on above: Performed By: #### L 500.2500 ####[facility] [address] [place], [address] EST GFR - AA 16 mL/min Low >60 [facility] Comment on above: Result Comment: Afri can Trinidadian GFR Calc Performed By: #### L 500.2500 ####[facility] [address] [place], [address] GAP 9 Normal 5-15 [facility] Comment on above: Performed By: #### L 500.2500 ####[facility] [address] [place], [address] GFR/1.73 sq M.predicted among non-blacks MDRD (S/P/Bld) [Vol rate/Area] 13 mL/min/{1.73_m2} Low >60 [facility] Comment on above: Result Comment: Non- GFR Calc Performed By: #### L 500.2500 ####[facility] [address] [place], [address] Glucose [Mass/Vol] 134 mg/dL High 74-106 [facility] Comment on above: Result Comment: Fast ing Glucose result greater than or equal to 126 mg/dLsuggests DIABETES MELLITUS per A.D.A. criteria. Performed By: #### L 500.2500 ####[facility] [address] [place], [address] Potassium [Moles/Vol] 4.3 mmol/L Normal 3.5-5.1 [facility] Comment on above: Performed By: #### L 500.2500 ####[facility] [address] [place], [address] Sodium [Moles/Vol] 133 mmol/L Low 136-145 [facility] Comment on above: Performed By: #### L 500.2500 ####[facility] [address] [place], [address] Urea nitrogen [Mass/Vol] 84 mg/dL High 7-18 [facility] Comment on above: Performed By: #### L 500.2500 ####[facility] [address] [place], [place], [address] Basophil percentageOrdered B y: Nando Wiggins on 07-02-2024 Basophils/100 WBC (Bld) 0.3 % 0-1 [facility] Bedside Glucoseon 07-02-2024 FINGERSTICK GLU 230 mg/dL High 74-106 [facility] Comment on above: Result Comment: FANG VAZQUEZ OF PATIENT CARE PER NURSING PROTOCOL Performed By: #### L 501.080 ####[facility] [address] [place], [place], [id number] Carbon dioxide measurementOr dered By: Fernando Oliveros on 07-02-2024 CO2 [Moles/Vol] 26.0 mmol/L 21.0-32.0 [facility] Carbon dioxide measurementOr dered By: Nando Wiggins on 07-02-2024 CO2 [Moles/Vol] 25.0 mmol/L 21.0-32.0 [facility] Chloride measurementOrdered By: Fernando Oliveros on 07-02-2024 Chloride [Moles/Vol] 98 mmol/L 98-107 [facility] Chloride measurementOrdered By: Nando Wiggins on 07-02-2024 Chloride [Moles/Vol] 96 mmol/L Low 98-107 [facility] Emergency Department Summary on 07-02-2024 Emergency Department Summary Normal [facility] Eosinophil percentageOrdered By: Efewlilian [place] on 07-02-2024 Eosinophils/100 WBC (Bld) 3.0 % 0-5 [facility] Erythrocyte distribution wid th ratioOrdered By: Efewongbe Meekghe on 07-02-2024 Erythrocyte distribution width (RBC) [Ratio] 17.2 % High 11.6-14.6 [facility] Erythrocyte distribution wid th standard deviationOrdered By: Nando Wiggins on 07-02-2024 Erythrocyte distribution width (RBC) [Ratio] 58.0 fl High 35.1-43.9 [facility] Glomerular filtration rate ( GFR) estimationOrdered By: Fernando Oliveros on 07-02-2024 GFR/1.73 sq M.predicted among non-blacks MDRD (S/P/Bld) [Vol rate/Area] 13 mL/min/{1.73_m2} Low >60 [facility] Glomerular filtration rate ( GFR) estimationOrdered By: Nando Wiggins on 07-02-2024 GFR/1.73 sq M.predicted among non-blacks MDRD (S/P/Bld) [Vol rate/Area] 8 mL/min/{1.73_m2} Low >60 [facility] Glucose measurementOrdered B y: Fernando Oliveros on 07-02-2024 Glucose [Mass/Vol] 134 mg/dL High 74-106 [facility] Glucose measurementOrdered B y: Nando Wiggins on 07-02-2024 Glucose [Mass/Vol] 134 mg/dL High 74-106 [facility] Gl[facility] at [facility] deOrdered By: Fernando Oliveros on 07-02-2024 Glucose [Mass/Vol] 230 mg/dL High 74-106 [facility] H AND P Exam - Hospitaliston 07-02-2024 H&P Exam - Hospitalist Normal [facility] Hematocrit Auto (Bld) [Volum e fraction]Ordered By: Nando Wiggins on 07-02-2024 Hematocrit (Bld) [Volume fraction] 25.7 % Low 40-54 [facility] Hemoglobin measurementOrdere d By: Nando Wiggins on 07-02-2024 Hemoglobin (Bld) [Mass/Vol] 8.0 g/dL Low 13.0-16.5 [facility] Immature granulocytes/100 WB C Auto (Bld)Ordered By: Nando Wiggins on 07-02-2024 Immature granulocytes/100 WBC (Bld) 0.500 % 0.0-0.9 [facility] MCV (mean corpuscular volume ) determinationOrdered By: Nando Wiggins on 07-02-2024 MCV (RBC) [Entitic vol] 96.3 fL High 80-94 [facility] Mean corpuscular hemoglobin (MCH) determinationOrdered By: Debsrinathwolf Edenlakshmidesiree on 07-02-2024 MCH (RBC) [Entitic mass] 30.0 pg 27.0-32.0 [facility] Monocyte percentageOrdered B y: Nando Wiggins on 07-02-2024 Monocytes/100 WBC (Bld) 11.7 % High 0-10 [facility] Neutrophil percentageOrdered By: Kathiebiancalilian Meeklakshmidesiree on 07-02-2024 Neutrophils/100 WBC (Bld) 64.2 % 47-70 [facility] Platelet countOrdered By: Kathie fili Meeklakshmidesiree on 07-02-2024 Platelets (Bld) [#/Vol] 198 10*3/uL 150-450 [facility] Potassium measurementOrdered By: Fernando Oliveros on 07-02-2024 Potassium [Moles/Vol] 4.3 mmol/L 3.5-5.1 [facility] Potassium measurementOrdered By: Nando Wiggins on 07-02-2024 Potassium [Moles/Vol] 5.9 mmol/L High 3.5-5.1 [facility] RBC Auto (Bld) [#/Vol]Ordere d By: Nando Meekcheko on 07-02-2024 RBC (Bld) [#/Vol] 2.67 10*6/uL Low 4.6-6.2 [facility] Serum or plasma calcium lilli urement (mass/volume)Ordered By: Fernando Oliveros on 07-02-2024 Calcium [Mass/Vol] 9.1 mg/dL 8.5-10.1 [facility] Serum or plasma calcium lilli urement (mass/volume)Ordered By: Nando Wiggins on 07-02-2024 Calcium [Mass/Vol] 8.1 mg/dL Low 8.5-10.1 [facility] Serum or plasma creatinine m easurement (mass/volume)Ordered By: Fernando Oliveros on 07-02-2024 Creatinine [Mass/Vol] 4.63 mg/dL High 0.70-1.30 [facility] Serum or plasma creatinine m easurement (mass/volume)Ordered By: Nando Wiggins on 07-02-2024 Creatinine [Mass/Vol] 7.24 mg/dL High 0.70-1.30 [facility] Serum or plasma urea nitroge n measurement (mass/volume)Ordered By: Fernando Oliveros on 07-02-2024 Urea nitrogen [Mass/Vol] 84 mg/dL High 12-07 [facility] Serum or plasma urea nitroge n measurement (mass/volume)Ordered By: Nando Wiggins on 07-02-2024 Urea nitrogen [Mass/Vol] 126 mg/dL High 12-07 [facility] Sodium levelOrdered By: Fernando Oliveros on 07-02-2024 Sodium [Moles/Vol] 133 mmol/L Low 136-145 [facility] Sodium levelOrdered By: Deb Wiggins on 07-02-2024 Sodium [Moles/Vol] 130 mmol/L Low 136-145 [facility] White blood cell (WBC) count Ordered By: Nando Wiggins on 07-02-2024 WBC (Bld) [#/Vol] 9.3 10*3/uL 4.4-11.0 [facility] Absolute lymphocyte countOrd ered By: Nando Wiggins on 06-25-2024 Lymphocytes Auto (Unsp spec) [#/Vol] 2.51 10*3/uL 0.83-4.51 [facility] Automated lymphocyte count a s percentage of total leukocytesOrdered By: Nando Wiggins on 06-25-2024 Lymphocytes/100 WBC Auto (Unsp spec) 29.7 % 19-41 [facility] Basophil percentageOrdered B y: Nando Wiggins on 06-25-2024 Basophils/100 WBC (Bld) 0.6 % 0-1 [facility] Carbon dioxide measurementOr dered By: Nando Wiggins on 06-25-2024 CO2 [Moles/Vol] 27.0 mmol/L 21.0-32.0 [facility] Chloride measurementOrdered By: Nando Wiggins on 06-25-2024 Chloride [Moles/Vol] 96 mmol/L Low 98-107 [facility] Eosinophil percentageOrdered By: Nando Wiggins on 06-25-2024 Eosinophils/100 WBC (Bld) 3.5 % 0-5 [facility] Erythrocyte distribution wid th ratioOrdered By: Nando Wiggins on 06-25-2024 Erythrocyte distribution width (RBC) [Ratio] 15.1 % High 11.6-14.6 [facility] Erythrocyte distribution wid th standard deviationOrdered By: Nando Wiggins on 06-25-2024 Erythrocyte distribution width (RBC) [Ratio] 52.1 fl High 35.1-43.9 [facility] Glomerular filtration rate ( GFR) estimationOrdered By: Nando Wiggins on 06-25-2024 GFR/1.73 sq M.predicted among non-blacks MDRD (S/P/Bld) [Vol rate/Area] 11 mL/min/{1.73_m2} Low >60 [facility] Glucose measurementOrdered B y: Nando Wiggins on 06-25-2024 Glucose [Mass/Vol] 136 mg/dL High 74-106 [facility] Hematocrit Auto (Bld) [Volum e fraction]Ordered By: Nando Wiggins on 06-25-2024 Hematocrit (Bld) [Volume fraction] 27.3 % Low 40-54 [facility] Hemoglobin measurementOrdere d By: Nando Wiggins on 06-25-2024 Hemoglobin (Bld) [Mass/Vol] 8.0 g/dL Low 13.0-16.5 [facility] Immature granulocytes/100 WB C Auto (Bld)Ordered By: Nando Wiggins on 06-25-2024 Immature granulocytes/100 WBC (Bld) 1.500 % High 0.0-0.9 [facility] MCV (mean corpuscular volume ) determinationOrdered By: Nando Wiggins on 06-25-2024 MCV (RBC) [Entitic vol] 95.5 fL High 80-94 [facility] Mean corpuscular hemoglobin (MCH) determinationOrdered By: Debsaint louiswolf Wiggins on 06-25-2024 MCH (RBC) [Entitic mass] 28.0 pg 27.0-32.0 [facility] Monocyte percentageOrdered B y: Nando Wiggins on 06-25-2024 Monocytes/100 WBC (Bld) 8.3 % 0-10 [facility] Neutrophil percentageOrdered By: Nando Wiggins on 06-25-2024 Neutrophils/100 WBC (Bld) 56.4 % 47-70 [facility] Platelet countOrdered By: Kathie Wiggins on 06-25-2024 Platelets (Bld) [#/Vol] 210 10*3/uL 150-450 [facility] Potassium measurementOrdered By: Nando Wiggins on 06-25-2024 Potassium [Moles/Vol] 4.2 mmol/L 3.5-5.1 [facility] RBC Auto (Bld) [#/Vol]Ordere d By: Nando Wiggins on 06-25-2024 RBC (Bld) [#/Vol] 2.86 10*6/uL Low 4.6-6.2 [facility] Serum or plasma calcium lilli urement (mass/volume)Ordered By: Nando Wiggins on 06-25-2024 Calcium [Mass/Vol] 9.0 mg/dL 8.5-10.1 [facility] Serum or plasma creatinine m easurement (mass/volume)Ordered By: Nando Wiggins on 06-25-2024 Creatinine [Mass/Vol] 5.23 mg/dL High 0.70-1.30 [facility] Serum or plasma urea nitroge n measurement (mass/volume)Ordered By: Nando Wiggins on 06-25-2024 Urea nitrogen [Mass/Vol] 72 mg/dL High 7-18 [facility] Sodium levelOrdered By: Deb Wiggins on 06-25-2024 Sodium [Moles/Vol] 134 mmol/L Low 136-145 [facility] White blood cell (WBC) count Ordered By: Nando Wiggins on 06-25-2024 WBC (Bld) [#/Vol] 8.5 10*3/uL 4.4-11.0 [facility] MR/BMS.BVSon 06-20-2024 MR/BMS.BVS Normal [facility] Absolute lymphocyte countOrd ered By: Nando Wiggins on 06-18-2024 Lymphocytes Auto (Unsp spec) [#/Vol] 2.74 10*3/uL 0.83-4.51 [facility] Automated lymphocyte count a s percentage of total leukocytesOrdered By: Nando Wiggins on 06-18-2024 Lymphocytes/100 WBC Auto (Unsp spec) 31.0 % 19-41 [facility] Basophil percentageOrdered B y: Nando Wiggins on 06-18-2024 Basophils/100 WBC (Bld) 0.6 % 0-1 [facility] Carbon dioxide measurementOr dered By: biancasaint louiswolf Wiggins on 06-18-2024 CO2 [Moles/Vol] 32.0 mmol/L 21.0-32.0 [facility] Chloride measurementOrdered By: Nando Wiggins on 06-18-2024 Chloride [Moles/Vol] 95 mmol/L Low 98-107 [facility] Eosinophil percentageOrdered By: biancasaint louiswolf Wiggins on 06-18-2024 Eosinophils/100 WBC (Bld) 3.1 % 0-5 [facility] Erythrocyte distribution wid th ratioOrdered By: [facility] Rosalie on 06-18-2024 Erythrocyte distribution width (RBC) [Ratio] 14.6 % 11.6-14.6 [facility] Erythrocyte distribution wid th standard deviationOrdered By: [facility] W[facility] on 06-18-2024 Erythrocyte distribution width (RBC) [Ratio] 50.6 fl High 35.1-43.9 [facility] Glomerular filtration rate ( GFR) estimationOrdered By: Nando Wiggins on 06-18-2024 GFR/1.73 sq M.predicted among non-blacks MDRD (S/P/Bld) [Vol rate/Area] 12 mL/min/{1.73_m2} Low >60 [facility] Glucose measurementOrdered B y: Nando Wiggins on 06-18-2024 Glucose [Mass/Vol] 81 mg/dL 74-106 [facility] Hematocrit Auto (Bld) [Volum e fraction]Ordered By: Nando Wiggins on 06-18-2024 Hematocrit (Bld) [Volume fraction] 28.6 % Low 40-54 [facility] Hemoglobin measurementOrdere d By: Debsrinathwolf Edenlakshmidesiree on 06-18-2024 Hemoglobin (Bld) [Mass/Vol] 8.4 g/dL Low 13.0-16.5 [facility] Immature granulocytes/100 WB C Auto (Bld)Ordered By: Nando Wiggins on 06-18-2024 Immature granulocytes/100 WBC (Bld) 0.300 % 0.0-0.9 [facility] MCV (mean corpuscular volume ) determinationOrdered By: Nando Wiggins on 06-18-2024 MCV (RBC) [Entitic vol] 95.0 fL High 80-94 [facility] Mean corpuscular hemoglobin (MCH) determinationOrdered By: Nando Wiggins on 06-18-2024 MCH (RBC) [Entitic mass] 27.9 pg 27.0-32.0 [facility] Monocyte percentageOrdered B y: Nando Wiggins on 06-18-2024 Monocytes/100 WBC (Bld) 8.3 % 0-10 [facility] Neutrophil percentageOrdered By: Nando Wiggins on 06-18-2024 Neutrophils/100 WBC (Bld) 56.7 % 47-70 [facility] Platelet countOrdered By: Kathie biancalilian Wiggins on 06-18-2024 Platelets (Bld) [#/Vol] 301 10*3/uL 150-450 [facility] Potassium measurementOrdered By: Nando Wiggins on 06-18-2024 Potassium [Moles/Vol] 4.7 mmol/L 3.5-5.1 [facility] RBC Auto (Bld) [#/Vol]Ordere d By: Debsrinathwolf Edenlakshmidesiree on 06-18-2024 RBC (Bld) [#/Vol] 3.01 10*6/uL Low 4.6-6.2 [facility] Serum or plasma calcium lilli urement (mass/volume)Ordered By: Nando Wiggins on 06-18-2024 Calcium [Mass/Vol] 9.5 mg/dL 8.5-10.1 [facility] Serum or plasma creatinine m easurement (mass/volume)Ordered By: Kathiefili Wiggins on 06-18-2024 Creatinine [Mass/Vol] 5.06 mg/dL High 0.70-1.30 [facility] Serum or plasma urea nitroge n measurement (mass/volume)Ordered By: Kathiefili Edenlakshmidesiree on 06-18-2024 Urea nitrogen [Mass/Vol] 69 mg/dL High 7-18 [facility] Sodium levelOrdered By: Deb quintana Meeklakshmidesiree on 06-18-2024 Sodium [Moles/Vol] 134 mmol/L Low 136-145 [facility] White blood cell (WBC) count Ordered By: Kathiefili Edenlakshmidesiree on 06-18-2024 WBC (Bld) [#/Vol] 8.8 10*3/uL 4.4-11.0 [facility] Absolute lymphocyte countOrd ered By: Nando Edenlakshmidesiree on 06-11-2024 Lymphocytes Auto (Unsp spec) [#/Vol] 2.00 10*3/uL 0.83-4.51 [facility] Automated lymphocyte count a s percentage of total leukocytesOrdered By: Kathiefili Edenlakshmidesiree on 06-11-2024 Lymphocytes/100 WBC Auto (Unsp spec) 25.4 % 19-41 [facility] Basophil percentageOrdered B y: Brianwolf Edenlakshmidesiree on 06-11-2024 Basophils/100 WBC (Bld) 0.6 % 0-1 [facility] CNPTOUTREACHon 06-11-2024 CNPTOUTREACH Normal [facility] Carbon dioxide measurementOr dered By: Nando Wiggins on 06-11-2024 CO2 [Moles/Vol] 30.0 mmol/L 21.0-32.0 [facility] Chloride measurementOrdered By: Nando Wiggins on 06-11-2024 Chloride [Moles/Vol] 94 mmol/L Low 98-107 [facility] Culture, Anaerobic Any Sourc reed 06-11-2024 CUAN Right Forefoot No growth in 5 days. Normal [facility] Comment on above: Performed By: #### M 100.3000, M600.2200, M300.2000, M100.4001, M300.3000, M100.2000, M600.2000 ####[facility] [address] [place], [address] Eosinophil percentageOrdered By: Nando Wiggins on 06-11-2024 Eosinophils/100 WBC (Bld) 2.7 % 0-5 [facility] Erythrocyte distribution wid th ratioOrdered By: [facility] Wigg[facility] on 06-11-2024 Erythrocyte distribution width (RBC) [Ratio] 14.6 % 11.6-14.6 [facility] Erythrocyte distribution wid th standard deviationOrdered By: [facility] Edendesiree on 06-11-2024 Erythrocyte distribution width (RBC) [Ratio] 50.4 fl High 35.1-43.9 [facility] Glomerular filtration rate ( GFR) estimationOrdered By: biancasaint louiswolf Wiggins on 06-11-2024 GFR/1.73 sq M.predicted among non-blacks MDRD (S/P/Bld) [Vol rate/Area] 10 mL/min/{1.73_m2} Low >60 [facility] Glucose measurementOrdered B y: Nando Wiggins on 06-11-2024 Glucose [Mass/Vol] 222 mg/dL High 74-106 [facility] Hematocrit Auto (Bld) [Volum e fraction]Ordered By: biancasaint louiswolf Wiggins on 06-11-2024 Hematocrit (Bld) [Volume fraction] 27.0 % Low 40-54 [facility] Hemoglobin measurementOrdere d By: Nando Wiggins on 06-11-2024 Hemoglobin (Bld) [Mass/Vol] 8.1 g/dL Low 13.0-16.5 [facility] Immature granulocytes/100 WB C Auto (Bld)Ordered By: Nando Wiggins on 06-11-2024 Immature granulocytes/100 WBC (Bld) 0.500 % 0.0-0.9 [facility] MCV (mean corpuscular volume ) determinationOrdered By: Nando Wiggins on 06-11-2024 MCV (RBC) [Entitic vol] 94.7 fL High 80-94 [facility] Mean corpuscular hemoglobin (MCH) determinationOrdered By: Nando Wiggins on 06-11-2024 MCH (RBC) [Entitic mass] 28.4 pg 27.0-32.0 [facility] Monocyte percentageOrdered B y: Nando Wiggins on 06-11-2024 Monocytes/100 WBC (Bld) 9.7 % 0-10 [facility] Neutrophil percentageOrdered By: Nando Wiggins on 06-11-2024 Neutrophils/100 WBC (Bld) 61.1 % 47-70 [facility] Platelet countOrdered By: Kathie biancalilian Wiggins on 06-11-2024 Platelets (Bld) [#/Vol] 295 10*3/uL 150-450 [facility] Potassium measurementOrdered By: Nando Wiggins on 06-11-2024 Potassium [Moles/Vol] 5.1 mmol/L 3.5-5.1 [facility] RBC Auto (Bld) [#/Vol]Ordere d By: Nando Wiggins on 06-11-2024 RBC (Bld) [#/Vol] 2.85 10*6/uL Low 4.6-6.2 [facility] Serum or plasma calcium lilli urement (mass/volume)Ordered By: Nando Wiggins on 06-11-2024 Calcium [Mass/Vol] 9.1 mg/dL 8.5-10.1 [facility] Serum or plasma creatinine m easurement (mass/volume)Ordered By: Nando Wiggins on 06-11-2024 Creatinine [Mass/Vol] 5.75 mg/dL High 0.70-1.30 [facility] Serum or plasma urea nitroge n measurement (mass/volume)Ordered By: Nando Wiggins on 06-11-2024 Urea nitrogen [Mass/Vol] 69 mg/dL High 7-18 [facility] Sodium levelOrdered By: Deb rosejeremie Rosalie on 06-11-2024 Sodium [Moles/Vol] 131 mmol/L Low 136-145 [facility] White blood cell (WBC) count Ordered By: Nando Wiggins 06-11-2024 WBC (Bld) [#/Vol] 7.9 10*3/uL 4.4-11.0 [facility] Bilirubin directOrdered By: Nando Wiggins on 06-08-2024 Bilirubin.direct [Mass/Vol] 0.14 mg/dL 0.00-0.30 [facility] Bilirubin, totalOrdered By: Nando Wiggins on 06-08-2024 Bilirubin [Mass/Vol] 0.40 mg/dL 0.20-1.00 [facility] Hemoglobin A1c percentageOrd ered By: Nando Wiggins on 06-08-2024 HbA1c (Bld) [Mass fraction] 7.7 % High 3.8-5.6 [facility] No Panel InformationOrdered By: Nando Wiggins on 06-08-2024 14 U/L Low 15-37 [facility] Serum globulin measurementOr dered By: Nando Wiggins on 06-08-2024 Globulin (S) [Mass/Vol] 4.4 g/dL High 2.2-4.2 [facility] Serum or plasma alanine hawkins otransferase (ALT) measurementOrdered By: Nando Wiggins on 06-08-2024 ALT [Catalytic activity/Vol] 7 U/L Low 16-61 [facility] Serum or plasma albumin lilli urement (mass/volume)Ordered By: Nando Wiggins on 06-08-2024 Albumin [Mass/Vol] 2.2 g/dL Low 3.2-5.0 [facility] Serum or plasma alkaline penelope sphatase measurementOrdered By: Nando Wiggins on 06-08-2024 ALP [Catalytic activity/Vol] 56 U/L 45-117 [facility] Total proteinOrdered By: Sinan Wiggins on 06-08-2024 Protein [Mass/Vol] 6.6 g/dL 6.4-8.2 [facility] Wound Cultureon 06-08-2024 WC Right Forefoot No growth aerobically. Normal [facility] Comment on above: Performed By: #### M 100.3000, M600.2200, M300.2000, M100.4001, M300.3000, M100.2000, M600.2000 ####[facility] [address] [place], [place], [address] Acid fast bacillus (AFB) cul tureOrdered By: Des Ruelas on 06-06-2024 Mycobacterium sp identified Org specific cx Nom (Unsp spec) [facility] Anaerobic cultureOrdered By: Des Ruelas on 06-06-2024 Bacteria identified Anaer cx Nom (Unsp spec) No growth in 5 days. [facility] Bedside Glucoseon 06-06-2024 FINGERSTICK GLU 102 mg/dL Normal 74-106 [facility] Comment on above: Result Comment: FANG VAZQUEZ OF PATIENT CARE PER NURSING PROTOCOL Performed By: #### L 501.080 ####[facility] [address] [place], [place], [address] Bilirubin directOrdered By: Nando Wiggins on 06-06-2024 Bilirubin.direct [Mass/Vol] 0.12 mg/dL 0.00-0.30 [facility] Bilirubin, totalOrdered By: Nando Wiggins on 06-06-2024 Bilirubin [Mass/Vol] 0.30 mg/dL 0.20-1.00 [facility] Decalcification bone/plaqueo n 06-06-2024 Decalcification bone/plaque Normal [facility] Comment on above: Performed By: #### P DEC ####[facility] [address] [place], [place], [address] Foot min 3 Viewson 5 Foot min 3 Views Normal [facility] Fungus cultureOrdered By: Kana Ruelas on 06-06-2024 Fungus identified Cx Nom (Unsp spec) [facility] Fungus stainOrdered By: Juve Ruelas on 06-06-2024 Fungus identified Fungus stain Nom (Unsp spec) [facility]dered By: Des Ruelas on 06-06-2024 Glucose [Mass/Vol] 102 mg/dL 74-106 [facility] Gram Stainon 06-06-2024 GS Right Forefoot Gram Stain 4+ Red Blood Cells 1+ White Blood Cells No organisms seen Normal [facility] Comment on above: Performed By: #### M 100.3000, M600.2200, M300.2000, M100.4001, M300.3000, M100.2000, M600.1999 ####[facility] [address] [place], [address] Gram stainOrdered By: Des Ruelas on 06-06-2024 Microscopic observation Gram stain Nom (Unsp spec) [facility] Hemoglobin A1c percentageOrd ered By: Nando Wiggins on 06-06-2024 HbA1c (Bld) [Mass fraction] 8.0 % High 3.8-5.6 [facility] MR/POSTOP.ANEon 06-06-2024 MR/POSTOP.ANE Normal [facility] MR/VPGCFXAR0fj 06-06-2024 MR/POSTOPAN2 Normal [facility] No Panel InformationOrdered By: Nando Wiggins on 06-06-2024 13 U/L Low 15-37 [facility] Operative Reporton Operative Report Normal [facility] Serum globulin measurementOr dered By: Nando Wiggins on 06-06-2024 Globulin (S) [Mass/Vol] 5.1 g/dL High 2.2-4.2 [facility] Serum or plasma alanine hawkins otransferase (ALT) measurementOrdered By: Nando Wiggins on 06-06-2024 ALT [Catalytic activity/Vol] 18 U/L 16-61 [facility] Serum or plasma albumin lilli urement (mass/volume)Ordered By: Nando Wiggins on 06-06-2024 Albumin [Mass/Vol] 2.4 g/dL Low 3.2-5.0 [facility] Serum or plasma alkaline penelope sphatase measurementOrdered By: Nando Wiggins on 06-06-2024 ALP [Catalytic activity/Vol] 68 U/L 45-117 [facility] Total proteinOrdered By: Sinan Wiggins on 06-06-2024 Protein [Mass/Vol] 7.5 g/dL 6.4-8.2 [facility] Wound Cultureon 06-05-2024 WC Normal [facility] Comment on above: Performed By: #### M 100.2000, M100.3000, M100.4001 ####[facility] [address] [place], [address] MR/PAT.ANEon 06-04-2024 MR/PAT.ANE Normal [facility] CNPNon 05-30-2024 CNPN Normal [facility] Wound Ctr History AND Physic ariella 05-29-2024 Wound Ctr History & Physical Normal [facility] Operative Reporton Operative Report Normal [facility] Wound Ctr History AND Physic ariella 05-17-2024 Wound Ctr History & Physical Normal [facility] Basic Metabolic Profile (BMP )on 05-14-2024 BUN Normal 7-18 [facility] Comment on above: Result Comment: Canc elled via OM: Order cancelled - Patient discharged Performed By: #### L 500.2500 ####[facility] [address] [place], [address] Result Comment: Canc elled via OM: MD Ordered Performed By: #### L 100.0500, L500.2500 ####[facility] [address] [place], [address] BUN/CRE Normal 10-20 [facility] Comment on above: Result Comment: Canc elled via OM: Order cancelled - Patient discharged Performed By: #### L 500.2500 ####[facility] [address] [place], [address] Result Comment: Canc elled via OM: MD Ordered Performed By: #### L 100.0500, L500.2500 ####[facility] [address] [place], [address] CA,Total Normal 8.5-10.1 [facility] Comment on above: Result Comment: Canc elled via OM: Order cancelled - Patient discharged Performed By: #### L 500.2500 ####[facility] [address] [place], [address] Result Comment: Canc elled via OM: MD Ordered Performed By: #### L 100.0500, L500.2500 ####[facility] [address] [place], [address] CL Normal 98-107 [facility] Comment on above: Result Comment: Canc elled via OM: Order cancelled - Patient discharged Performed By: #### L 500.2500 ####[facility] [address] [place], [address] Result Comment: Canc elled via OM: MD Ordered Performed By: #### L 100.0500, L500.2500 ####[facility] [address] [place], [address] CO2 Normal 21.0-32.0 [facility] Comment on above: Result Comment: Canc elled via OM: Order cancelled - Patient discharged Performed By: #### L 500.2500 ####[facility] [address] [place], [address] Result Comment: Canc elled via OM: MD Ordered Performed By: #### L 100.0500, L500.2500 ####[facility] [address] [place], [address] CREAT,SERUM Normal 0.70-1.30 [facility] Comment on above: Result Comment: Canc elled via OM: Order cancelled - Patient discharged Performed By: #### L 500.2500 ####[facility] [address] [place], [address] Result Comment: Canc elled via OM: MD Ordered Performed By: #### L 100.0500, L500.2500 ####[facility] [address] [place], [address] EST GFR Normal >60 [facility] Comment on above: Result Comment: Canc elled via OM: Order cancelled - Patient discharged Performed By: #### L 500.2500 ####[facility] [address] [place], [address] Result Comment: Canc elled via OM: MD Ordered Performed By: #### L 100.0500, L500.2500 ####[facility] [address] [place], [address] EST GFR - AA Normal >60 [facility] Comment on above: Result Comment: Canc elled via OM: Order cancelled - Patient discharged Performed By: #### L 500.2500 ####[facility] [address] [place], [address] Result Comment: Canc elled via OM: MD Ordered Performed By: #### L 100.0500, L500.2500 ####[facility] [address] [place], [address] GAP Normal 5-15 [facility] Comment on above: Result Comment: Canc elled via OM: Order cancelled - Patient discharged Performed By: #### L 500.2500 ####[facility] [address] [place], [address] Result Comment: Canc elled via OM: MD Ordered Performed By: #### L 100.0500, L500.2500 ####[facility] [address] [place], [address] GLU Normal 74-106 [facility] Comment on above: Result Comment: Canc elled via OM: Order cancelled - Patient discharged Performed By: #### L 500.2500 ####[facility] [address] [place], [address] Result Comment: Canc elled via OM: MD Ordered Performed By: #### L 100.0500, L500.2500 ####[facility] [address] [place], [address] Potassium Normal 3.5-5.1 [facility] Comment on above: Result Comment: Canc elled via OM: Order cancelled - Patient discharged Performed By: #### L 500.2500 ####[facility] [address] [place], [address] Result Comment: Canc elled via OM: MD Ordered Performed By: #### L 100.0500, L500.2500 ####[facility] [address] [place], [address] Basic Metabolic Profile (BMP) Normal 136-145 [facility] Comment on above: Result Comment: Canc elled via OM: Order cancelled - Patient discharged Performed By: #### L 500.2500 ####[facility] [address] [place], [address] Result Comment: Canc elled via OM: MD Ordered Performed By: #### L 100.0500, L500.2500 ####[facility] [address] [place], [address] CBC-Complete Blood Cnt No Di ffon 05-14-2024 HCT Normal 40-54 [facility] Comment on above: Result Comment: Canc elled via OM: Order cancelled - Patient discharged Performed By: #### L 100.0500 ####[facility] [address] [place], [address] HGB Normal 13.0-16.5 [facility] Comment on above: Result Comment: Canc elled via OM: Order cancelled - Patient discharged Performed By: #### L 100.0500 ####[facility] [address] [place], [address] MCH Normal 27.0-32.0 [facility] Comment on above: Result Comment: Canc elled via OM: Order cancelled - Patient discharged Performed By: #### L 100.0500 ####[facility] [address] [place], [address] MCHC Normal 32-36 [facility] Comment on above: Result Comment: Canc elled via OM: Order cancelled - Patient discharged Performed By: #### L 100.0500 ####[facility] [address] [place], [address] MCV Normal 80-94 [facility] Comment on above: Result Comment: Canc elled via OM: Order cancelled - Patient discharged Performed By: #### L 100.0500 ####[facility] [address] [place], [address] PLT Normal 150-450 [facility] Comment on above: Result Comment: Canc elled via OM: Order cancelled - Patient discharged Performed By: #### L 100.0500 ####[facility] [address] [place], [address] RBC Normal 4.6-6.2 [facility] Comment on above: Result Comment: Canc elled via OM: Order cancelled - Patient discharged Performed By: #### L 100.0500 ####[facility] [address] [place], [address] RDW CV Normal 11.6-14.6 [facility] Comment on above: Result Comment: Canc elled via OM: Order cancelled - Patient discharged Performed By: #### L 100.0500 ####[facility] [address] [place], [address] RDW SD Normal 35.1-43.9 [facility] Comment on above: Result Comment: Canc elled via OM: Order cancelled - Patient discharged Performed By: #### L 100.0500 ####[facility] [address] [place], [address] WBC Normal 4.4-11.0 [facility] Comment on above: Result Comment: Canc elled via OM: Order cancelled - Patient discharged Performed By: #### L 100.0500 ####[facility] [address] [place], [address] HCT Normal 40-54 [facility] Comment on above: Result Comment: Canc elled via OM: MD Ordered Performed By: #### L 100.0500, L500.2500 ####[facility] [address] [place], [address] HGB Normal 13.0-16.5 [facility] Comment on above: Result Comment: Canc elled via OM: MD Ordered Performed By: #### L 100.0500, L500.2500 ####[facility] [address] [place], [address] MCH Normal 27.0-32.0 [facility] Comment on above: Result Comment: Canc elled via OM: MD Ordered Performed By: #### L 100.0500, L500.2500 ####[facility] [address] [place], [address] MCHC Normal 32-36 [facility] Comment on above: Result Comment: Canc elled via OM: MD Ordered Performed By: #### L 100.0500, L500.2500 ####[facility] [address] [place], [address] MCV Normal 80-94 [facility] Comment on above: Result Comment: Canc elled via OM: MD Ordered Performed By: #### L 100.0500, L500.2500 ####[facility] [address] [place], [address] PLT Normal 150-450 [facility] Comment on above: Result Comment: Canc elled via OM: MD Ordered Performed By: #### L 100.0500, L500.2500 ####[facility] [address] [place], [address] RBC Normal 4.6-6.2 [facility] Comment on above: Result Comment: Canc elled via OM: MD Ordered Performed By: #### L 100.0500, L500.2500 ####[facility] [address] [place], [address] RDW CV Normal 11.6-14.6 [facility] Comment on above: Result Comment: Canc elled via OM: MD Ordered Performed By: #### L 100.0500, L500.2500 ####[facility] [address] [place], [address] RDW SD Normal 35.1-43.9 [facility] Comment on above: Result Comment: Canc elled via OM: MD Ordered Performed By: #### L 100.0500, L500.2500 ####[facility] [address] [place], [address] WBC Normal 4.4-11.0 [facility] Comment on above: Result Comment: Canc elled via OM: MD Ordered Performed By: #### L 100.0500, L500.2500 ####[facility] [address] [place], [address] Basic Metabolic Profile (BMP )on 05-13-2024 BUN Normal 7-18 [facility] Comment on above: Result Comment: Canc elled via OM: MD Ordered Performed By: #### L 500.2500, L100.0500 ####[facility] [address] [place], [address] BUN/CRE Normal 10-20 [facility] Comment on above: Result Comment: Canc elled via OM: MD Ordered Performed By: #### L 500.2500, L100.0500 ####[facility] [address] [place], [address] CA,Total Normal 8.5-10.1 [facility] Comment on above: Result Comment: Canc elled via OM: MD Ordered Performed By: #### L 500.2500, L100.0500 ####[facility] [address] [place], [address] CL Normal 98-107 [facility] Comment on above: Result Comment: Canc elled via OM: MD Ordered Performed By: #### L 500.2500, L100.0500 ####[facility] [address] [place], [address] CO2 Normal 21.0-32.0 [facility] Comment on above: Result Comment: Canc elled via OM: MD Ordered Performed By: #### L 500.2500, L100.0500 ####[facility] [address] [place], [address] CREAT,SERUM Normal 0.70-1.30 [facility] Comment on above: Result Comment: Canc elled via OM: MD Ordered Performed By: #### L 500.2500, L100.0500 ####[facility] [address] [place], [address] EST GFR Normal >60 [facility] Comment on above: Result Comment: Canc elled via OM: MD Ordered Performed By: #### L 500.2500, L100.0500 ####[facility] [address] [place], [address] EST GFR - AA Normal >60 [facility] Comment on above: Result Comment: Canc elled via OM: MD Ordered Performed By: #### L 500.2500, L100.0500 ####[facility] [address] [place], [address] GAP Normal 5-15 [facility] Comment on above: Result Comment: Canc elled via OM: MD Ordered Performed By: #### L 500.2500, L100.0500 ####[facility] [address] [place], [address] GLU Normal 74-106 [facility] Comment on above: Result Comment: Canc elled via OM: MD Ordered Performed By: #### L 500.2500, L100.0500 ####[facility] [address] [place], [address] Potassium Normal 3.5-5.1 [facility] Comment on above: Result Comment: Canc elled via OM: MD Ordered Performed By: #### L 500.2500, L100.0500 ####[facility] [address] [place], [address] Basic Metabolic Profile (BMP) Normal 136-145 [facility] Comment on above: Result Comment: Canc elled via OM: MD Ordered Performed By: #### L 500.2500, L100.0500 ####[facility] [address] [place], [address] CBC-Complete Blood Cnt No Di ffon 05-13-2024 HCT Normal 40-54 [facility] Comment on above: Result Comment: Canc elled via OM: MD Ordered Performed By: #### L 500.2500, L100.0500 ####[facility] [address] [place], [address] HGB Normal 13.0-16.5 [facility] Comment on above: Result Comment: Canc elled via OM: MD Ordered Performed By: #### L 500.2500, L100.0500 ####[facility] [address] [place], [address] MCH Normal 27.0-32.0 [facility] Comment on above: Result Comment: Canc elled via OM: MD Ordered Performed By: #### L 500.2500, L100.0500 ####[facility] [address] [place], [address] MCHC Normal 32-36 [facility] Comment on above: Result Comment: Canc elled via OM: MD Ordered Performed By: #### L 500.2500, L100.0500 ####[facility] [address] [place], [address] MCV Normal 80-94 [facility] Comment on above: Result Comment: Canc elled via OM: MD Ordered Performed By: #### L 500.2500, L100.0500 ####[facility] [address] [place], [address] PLT Normal 150-450 [facility] Comment on above: Result Comment: Canc elled via OM: MD Ordered Performed By: #### L 500.2500, L100.0500 ####[facility] [address] [place], [address] RBC Normal 4.6-6.2 [facility] Comment on above: Result Comment: Canc elled via OM: MD Ordered Performed By: #### L 500.2500, L100.0500 ####[facility] [address] [place], [address] RDW CV Normal 11.6-14.6 [facility] Comment on above: Result Comment: Canc elled via OM: MD Ordered Performed By: #### L 500.2500, L100.0500 ####[facility] [address] [place], [address] RDW SD Normal 35.1-43.9 [facility] Comment on above: Result Comment: Canc elled via OM: MD Ordered Performed By: #### L 500.2500, L100.0500 ####[facility] [address] [place], [address] WBC Normal 4.4-11.0 [facility] Comment on above: Result Comment: Canc elled via OM: MD Ordered Performed By: #### L 500.2500, L100.0500 ####[facility] [address] [place], [address] Basic Metabolic Profile (BMP )on 05-12-2024 BUN Normal 7-18 [facility] Comment on above: Result Comment: Canc elled via OM: Order cancelled - Patient discharged Performed By: #### L 500.2500 ####[facility] [address] [place], [address] Result Comment: Canc elled via OM: MD Ordered Performed By: #### L 100.0500, L500.2500 ####[facility] [address] [place], [address] BUN/CRE Normal 10-20 [facility] Comment on above: Result Comment: Canc elled via OM: Order cancelled - Patient discharged Performed By: #### L 500.2500 ####[facility] [address] [place], [address] Result Comment: Canc elled via OM: MD Ordered Performed By: #### L 100.0500, L500.2500 ####[facility] [address] [place], [address] CA,Total Normal 8.5-10.1 [facility] Comment on above: Result Comment: Canc elled via OM: Order cancelled - Patient discharged Performed By: #### L 500.2500 ####[facility] [address] [place], [address] Result Comment: Canc elled via OM: MD Ordered Performed By: #### L 100.0500, L500.2500 ####[facility] [address] [place], [address] CL Normal 98-107 [facility] Comment on above: Result Comment: Canc elled via OM: Order cancelled - Patient discharged Performed By: #### L 500.2500 ####[facility] [address] [place], [address] Result Comment: Canc elled via OM: MD Ordered Performed By: #### L 100.0500, L500.2500 ####[facility] [address] [place], [address] CO2 Normal 21.0-32.0 [facility] Comment on above: Result Comment: Canc elled via OM: Order cancelled - Patient discharged Performed By: #### L 500.2500 ####[facility] [address] [place], [address] Result Comment: Canc elled via OM: MD Ordered Performed By: #### L 100.0500, L500.2500 ####[facility] [address] [place], [address] CREAT,SERUM Normal 0.70-1.30 [facility] Comment on above: Result Comment: Canc elled via OM: Order cancelled - Patient discharged Performed By: #### L 500.2500 ####[facility] [address] [place], [address] Result Comment: Canc elled via OM: MD Ordered Performed By: #### L 100.0500, L500.2500 ####[facility] [address] [place], [address] EST GFR Normal >60 [facility] Comment on above: Result Comment: Canc elled via OM: Order cancelled - Patient discharged Performed By: #### L 500.2500 ####[facility] [address] [place], [address] Result Comment: Canc elled via OM: MD Ordered Performed By: #### L 100.0500, L500.2500 ####[facility] [address] [place], [address] EST GFR - AA Normal >60 [facility] Comment on above: Result Comment: Canc elled via OM: Order cancelled - Patient discharged Performed By: #### L 500.2500 ####[facility] [address] [place], [address] Result Comment: Canc elled via OM: MD Ordered Performed By: #### L 100.0500, L500.2500 ####[facility] [address] [place], [address] GAP Normal 5-15 [facility] Comment on above: Result Comment: Canc elled via OM: Order cancelled - Patient discharged Performed By: #### L 500.2500 ####[facility] [address] [place], [address] Result Comment: Canc elled via OM: MD Ordered Performed By: #### L 100.0500, L500.2500 ####[facility] [address] [place], [address] GLU Normal 74-106 [facility] Comment on above: Result Comment: Canc elled via OM: Order cancelled - Patient discharged Performed By: #### L 500.2500 ####[facility] [address] [place], [address] Result Comment: Canc elled via OM: MD Ordered Performed By: #### L 100.0500, L500.2500 ####[facility] [address] [place], [address] Potassium Normal 3.5-5.1 [facility] Comment on above: Result Comment: Canc elled via OM: Order cancelled - Patient discharged Performed By: #### L 500.2500 ####[facility] [address] [place], [address] Result Comment: Canc elled via OM: MD Ordered Performed By: #### L 100.0500, L500.2500 ####[facility] [address] [place], [address] Basic Metabolic Profile (BMP) Normal 136-145 [facility] Comment on above: Result Comment: Canc elled via OM: Order cancelled - Patient discharged Performed By: #### L 500.2500 ####[facility] [address] [place], [address] Result Comment: Canc elled via OM: MD Ordered Performed By: #### L 100.0500, L500.2500 ####[facility] [address] [place], [address] CBC-Complete Blood Cnt No Di ffon 05-12-2024 HCT Normal 40-54 [facility] Comment on above: Result Comment: Canc elled via OM: Order cancelled - Patient discharged Performed By: #### L 100.0500 ####[facility] [address] [place], [address] HGB Normal 13.0-16.5 [facility] Comment on above: Result Comment: Canc elled via OM: Order cancelled - Patient discharged Performed By: #### L 100.0500 ####[facility] [address] [place], [address] MCH Normal 27.0-32.0 [facility] Comment on above: Result Comment: Canc elled via OM: Order cancelled - Patient discharged Performed By: #### L 100.0500 ####[facility] [address] [place], [address] MCHC Normal 32-36 [facility] Comment on above: Result Comment: Canc elled via OM: Order cancelled - Patient discharged Performed By: #### L 100.0500 ####[facility] [address] [place], [address] MCV Normal 80-94 [facility] Comment on above: Result Comment: Canc elled via OM: Order cancelled - Patient discharged Performed By: #### L 100.0500 ####[facility] [address] [place], [address] PLT Normal 150-450 [facility] Comment on above: Result Comment: Canc elled via OM: Order cancelled - Patient discharged Performed By: #### L 100.0500 ####[facility] [address] [place], [address] RBC Normal 4.6-6.2 [facility] Comment on above: Result Comment: Canc elled via OM: Order cancelled - Patient discharged Performed By: #### L 100.0500 ####[facility] [address] [place], [address] RDW CV Normal 11.6-14.6 [facility] Comment on above: Result Comment: Canc elled via OM: Order cancelled - Patient discharged Performed By: #### L 100.0500 ####[facility] [address] [place], [address] RDW SD Normal 35.1-43.9 [facility] Comment on above: Result Comment: Canc elled via OM: Order cancelled - Patient discharged Performed By: #### L 100.0500 ####[facility] [address] [place], [address] WBC Normal 4.4-11.0 [facility] Comment on above: Result Comment: Canc elled via OM: Order cancelled - Patient discharged Performed By: #### L 100.0500 ####[facility] [address] [place], [address] HCT Normal 40-54 [facility] Comment on above: Result Comment: Canc elled via OM: MD Ordered Performed By: #### L 100.0500, L500.2500 ####[facility] [address] [place], [address] HGB Normal 13.0-16.5 [facility] Comment on above: Result Comment: Canc elled via OM: MD Ordered Performed By: #### L 100.0500, L500.2500 ####[facility] [address] [place], [address] MCH Normal 27.0-32.0 [facility] Comment on above: Result Comment: Canc elled via OM: MD Ordered Performed By: #### L 100.0500, L500.2500 ####[facility] [address] [place], [address] MCHC Normal 32-36 [facility] Comment on above: Result Comment: Canc elled via OM: MD Ordered Performed By: #### L 100.0500, L500.2500 ####[facility] [address] [place], [address] MCV Normal 80-94 [facility] Comment on above: Result Comment: Canc elled via OM: MD Ordered Performed By: #### L 100.0500, L500.2500 ####[facility] [address] [place], [address] PLT Normal 150-450 [facility] Comment on above: Result Comment: Canc elled via OM: MD Ordered Performed By: #### L 100.0500, L500.2500 ####[facility] [address] [place], [address] RBC Normal 4.6-6.2 [facility] Comment on above: Result Comment: Canc elled via OM: MD Ordered Performed By: #### L 100.0500, L500.2500 ####[facility] [address] [place], [address] RDW CV Normal 11.6-14.6 [facility] Comment on above: Result Comment: Canc elled via OM: MD Ordered Performed By: #### L 100.0500, L500.2500 ####[facility] [address] [place], [address] RDW SD Normal 35.1-43.9 [facility] Comment on above: Result Comment: Canc elled via OM: MD Ordered Performed By: #### L 100.0500, L500.2500 ####[facility] [address] [place], [address] WBC Normal 4.4-11.0 [facility] Comment on above: Result Comment: Canc elled via OM: MD Ordered Performed By: #### L 100.0500, L500.2500 ####[facility] [address] [place], [address] Basic Metabolic Profile (BMP )on 05-11-2024 BUN Normal - [facility] Comment on above: Result Comment: Canc elled via OM: MD Ordered Performed By: #### L 500.2500, L100.0500 ####[facility] [address] [place], [address] BUN/CRE Normal - [facility] Comment on above: Result Comment: Canc elled via OM: MD Ordered Performed By: #### L 500.2500, L100.0500 ####[facility] [address] [place], [address] CA,Total Normal 8.5-10.1 [facility] Comment on above: Result Comment: Canc elled via OM: MD Ordered Performed By: #### L 500.2500, L100.0500 ####[facility] [address] [place], [address] CL Normal 98-107 [facility] Comment on above: Result Comment: Canc elled via OM: MD Ordered Performed By: #### L 500.2500, L100.0500 ####[facility] [address] [place], [address] CO2 Normal 21.0-32.0 [facility] Comment on above: Result Comment: Canc elled via OM: MD Ordered Performed By: #### L 500.2500, L100.0500 ####[facility] [address] [place], [address] CREAT,SERUM Normal 0.70-1.30 [facility] Comment on above: Result Comment: Canc elled via OM: MD Ordered Performed By: #### L 500.2500, L100.0500 ####[facility] [address] [place], [address] EST GFR Normal >60 [facility] Comment on above: Result Comment: Canc elled via OM: MD Ordered Performed By: #### L 500.2500, L100.0500 ####[facility] [address] [place], [address] EST GFR - AA Normal >60 [facility] Comment on above: Result Comment: Canc elled via OM: MD Ordered Performed By: #### L 500.2500, L100.0500 ####[facility] [address] [place], [address] GAP Normal 5-15 [facility] Comment on above: Result Comment: Canc elled via OM: MD Ordered Performed By: #### L 500.2500, L100.0500 ####[facility] [address] [place], [address] GLU Normal 74-106 [facility] Comment on above: Result Comment: Canc elled via OM: MD Ordered Performed By: #### L 500.2500, L100.0500 ####[facility] [address] [place], [address] Potassium Normal 3.5-5.1 [facility] Comment on above: Result Comment: Canc elled via OM: MD Ordered Performed By: #### L 500.2500, L100.0500 ####[facility] [address] [place], [address] Basic Metabolic Profile (BMP) Normal 136-145 [facility] Comment on above: Result Comment: Canc elled via OM: MD Ordered Performed By: #### L 500.2500, L100.0500 ####[facility] [address] [place], [address] CBC-Complete Blood Cnt No Di ffon 05-11-2024 HCT Normal 40-54 [facility] Comment on above: Result Comment: Canc elled via OM: MD Ordered Performed By: #### L 500.2500, L100.0500 ####[facility] [address] [place], [address] HGB Normal 13.0-16.5 [facility] Comment on above: Result Comment: Canc elled via OM: MD Ordered Performed By: #### L 500.2500, L100.0500 ####[facility] [address] [place], [address] MCH Normal 27.0-32.0 [facility] Comment on above: Result Comment: Canc elled via OM: MD Ordered Performed By: #### L 500.2500, L100.0500 ####[facility] [address] [place], [address] MCHC Normal 32-36 [facility] Comment on above: Result Comment: Canc elled via OM: MD Ordered Performed By: #### L 500.2500, L100.0500 ####[facility] [address] [place], [address] MCV Normal 80-94 [facility] Comment on above: Result Comment: Canc elled via OM: MD Ordered Performed By: #### L 500.2500, L100.0500 ####[facility] [address] [place], [address] PLT Normal 150-450 [facility] Comment on above: Result Comment: Canc elled via OM: MD Ordered Performed By: #### L 500.2500, L100.0500 ####[facility] [address] [place], [address] RBC Normal 4.6-6.2 [facility] Comment on above: Result Comment: Canc elled via OM: MD Ordered Performed By: #### L 500.2500, L100.0500 ####[facility] [address] [place], [address] RDW CV Normal 11.6-14.6 [facility] Comment on above: Result Comment: Canc elled via OM: MD Ordered Performed By: #### L 500.2500, L100.0500 ####[facility] [address] [place], [address] RDW SD Normal 35.1-43.9 [facility] Comment on above: Result Comment: Canc elled via OM: MD Ordered Performed By: #### L 500.2500, L100.0500 ####[facility] [address] [place], [address] WBC Normal 4.4-11.0 [facility] Comment on above: Result Comment: Canc elled via OM: MD Ordered Performed By: #### L 500.2500, L100.0500 ####[facility] [address] [place], [address] Basic Metabolic Profile (BMP )on 05-10-2024 BUN/CRE 9.4 RATIO Low 10-20 [facility] Comment on above: Performed By: #### L 500.2500, L100.0500 ####[facility] [address] [place], [address] CA,Total 8.8 mg/dL Normal 8.5-10.1 [facility] Comment on above: Performed By: #### L 500.2500, L100.0500 ####[facility] [address] [place], [address] Chloride [Moles/Vol] 102 mmol/L Normal 98-107 [facility] Comment on above: Performed By: #### L 500.2500, L100.0500 ####[facility] [address] [place], [address] CO2 [Moles/Vol] 25.0 mmol/L Normal 21.0-32.0 [facility] Comment on above: Performed By: #### L 500.2500, L100.0500 ####[facility] [address] [place], [address] Creatinine [Mass/Vol] 5.98 mg/dL High 0.70-1.30 [facility] Comment on above: Result Comment: The validity of the calculated GFR GFRAA in patients over70 years has not been determined. Clinical correlation isessential. Performed By: #### L 500.2500, L100.0500 ####[facility] [address] [place], [address] ECRCL 9.33 ml/min Normal [facility] Comment on above: Performed By: #### L 500.2500, L100.0500 ####[facility] [address] [place], [address] EST GFR - AA 12 mL/min Low >60 [facility] Comment on above: Result Comment: Afri can Trinidadian GFR Calc Performed By: #### L 500.2500, L100.0500 ####[facility] [address] [place], [address] GAP 8 Normal 5-15 [facility] Comment on above: Performed By: #### L 500.2500, L100.0500 ####[facility] [address] [place], [address] GFR/1.73 sq M.predicted among non-blacks MDRD (S/P/Bld) [Vol rate/Area] 10 mL/min/{1.73_m2} Low >60 [facility] Comment on above: Result Comment: Non- GFR Calc Performed By: #### L 500.2500, L100.0500 ####[facility] [address] [place], [address] Glucose [Mass/Vol] 141 mg/dL High 74-106 [facility] Comment on above: Result Comment: Fast ing Glucose result greater than or equal to 126 mg/dLsuggests DIABETES MELLITUS per A.D.A. criteria. Performed By: #### L 500.2500, L100.0500 ####[facility] [address] [place], [address] Potassium [Moles/Vol] 4.2 mmol/L Normal 3.5-5.1 [facility] Comment on above: Performed By: #### L 500.2500, L100.0500 ####[facility] [address] [place], [address] Sodium [Moles/Vol] 135 mmol/L Low 136-145 [facility] Comment on above: Performed By: #### L 500.2500, L100.0500 ####[facility] [address] [place], [address] Urea nitrogen [Mass/Vol] 56 mg/dL High 7-18 [facility] Comment on above: Performed By: #### L 500.2500, L100.0500 ####[facility] [address] [place], [address] Bedside Glucoseon 05-10-2024 FINGERSTICK GLU 188 mg/dL High 74-106 [facility] Comment on above: Result Comment: FANG VAZQUEZ OF PATIENT CARE PER NURSING PROTOCOL Performed By: #### L 501.080 ####[facility] [address] [place], [address] FINGERSTICK GLU 165 mg/dL High 74-106 [facility] Comment on above: Result Comment: FANG GEMENT OF PATIENT CARE PER NURSING PROTOCOL Performed By: #### L 501.080 ####[facility] [address] [place], [address] FINGERSTICK GLU 115 mg/dL High 74-106 [facility] Comment on above: Result Comment: FANG GEMENT OF PATIENT CARE PER NURSING PROTOCOL Performed By: #### L 501.080 ####[facility] [address] [place], [address] CBC-Complete Blood Cnt No Di ffon 05-10-2024 Erythrocyte distribution width (RBC) [Ratio] 15.0 % High 11.6-14.6 [facility] Comment on above: Performed By: #### L 500.2500, L100.0500 ####[facility] [address] [place], [address] Hematocrit (Bld) [Volume fraction] 29.9 % Low 40-54 [facility] Comment on above: Performed By: #### L 500.2500, L100.0500 ####[facility] [address] [place], [address] Hemoglobin (Bld) [Mass/Vol] 9.2 g/dL Low 13.0-16.5 [facility] Comment on above: Performed By: #### L 500.2500, L100.0500 ####[facility] [address] [place], [address] MCH (RBC) [Entitic mass] 29.3 pg Normal 27.0-32.0 [facility] Comment on above: Performed By: #### L 500.2500, L100.0500 ####[facility] [address] [place], [address] MCHC (RBC) [Mass/Vol] 30.8 g/dL Low 32-36 [facility] Comment on above: Performed By: #### L 500.2500, L100.0500 ####[facility] [address] [place], [address] MCV (RBC) [Entitic vol] 95.2 fL High 80-94 [facility] Comment on above: Performed By: #### L 500.2500, L100.0500 ####[facility] [address] [place], [address] Platelet mean volume (Bld) [Entitic vol] 10.5 fL Normal 6.2-12.0 [facility] Comment on above: Performed By: #### L 500.2500, L100.0500 ####[facility] [address] [place], [address] Platelets (Bld) [#/Vol] 205 10*3/uL Normal 150-450 [facility] Comment on above: Performed By: #### L 500.2500, L100.0500 ####[facility] [address] [place], [address] RBC (Bld) [#/Vol] 3.14 10*6/uL Low 4.6-6.2 [facility] Comment on above: Performed By: #### L 500.2500, L100.0500 ####[facility] [address] [place], [address] RDW SD 51.8 fl High 35.1-43.9 [facility] Comment on above: Performed By: #### L 500.2500, L100.0500 ####[facility] [address] [place], [address] WBC (Bld) [#/Vol] 8.2 10*3/uL Normal 4.4-11.0 [facility] Comment on above: Performed By: #### L 500.2500, L100.0500 ####[facility] [address] [place], [address] Culture, Anaerobic Any Sourc reed 12-19-2024 CUAN COLLECTED IN OR RIGH T HALLUX AND 1ST METATARSAL No anaerobic bacteria isolated. Normal [facility] Comment on above: Performed By: #### M 100.2000, M100.3000, M100.4001 ####[facility] [address] [place], [address] Vancomycin, Random Levelon 1 07-11-2023 VANCO, RANDOM 21.6 ug/mL High 0.0-15.0 [facility] Comment on above: Order Comment: Comme nts: PLEASE DRAW PRE-DIALYSIS Result Comment: VANC OMYCIN STANDARD DRUG THERAPY: CRITICAL VALUE IS > 15.0 mg/LVANCOMYCIN HIGH INTENSITY THERAPY: CRITICAL VALUE IS > 20.0 mg/LPLEASE CONTACT PHARMACY SERVICES (#2294) FOR INTERPRETATIONOF RESULTS. THIS RESULT DOES NOT REPRESENT A PEAK OR TROUGHLEVEL FOR THIS DRUG. Performed By: #### L 501.8850 ####[facility] [address] [place], [address] Basic Metabolic Profile (BMP )on 05-09-2024 BUN/CRE 9.9 RATIO Low 10-20 [facility] Comment on above: Performed By: #### L 100.0500, L500.2500 ####[facility] [address] [place], [address] CA,Total 8.8 mg/dL Normal 8.5-10.1 [facility] Comment on above: Performed By: #### L 100.0500, L500.2500 ####[facility] [address] [place], [address] Chloride [Moles/Vol] 102 mmol/L Normal 98-107 [facility] Comment on above: Performed By: #### L 100.0500, L500.2500 ####[facility] [address] [place], [address] CO2 [Moles/Vol] 27.0 mmol/L Normal 21.0-32.0 [facility] Comment on above: Performed By: #### L 100.0500, L500.2500 ####[facility] [address] [place], [address] Creatinine [Mass/Vol] 4.74 mg/dL High 0.70-1.30 [facility] Comment on above: Result Comment: The validity of the calculated GFR GFRAA in patients over70 years has not been determined. Clinical correlation isessential. Performed By: #### L 100.0500, L500.2500 ####[facility] [address] [place], [address] ECRCL 11.77 ml/min Normal [facility] Comment on above: Performed By: #### L 100.0500, L500.2500 ####[facility] [address] [place], [address] EST GFR - AA 15 mL/min Low >60 [facility] Comment on above: Result Comment: Afri can Trinidadian GFR Calc Performed By: #### L 100.0500, L500.2500 ####[facility] [address] [place], [address] GAP 6 Normal 5-15 [facility] Comment on above: Performed By: #### L 100.0500, L500.2500 ####[facility] [address] [place], [address] GFR/1.73 sq M.predicted among non-blacks MDRD (S/P/Bld) [Vol rate/Area] 13 mL/min/{1.73_m2} Low >60 [facility] Comment on above: Result Comment: Non- GFR Calc Performed By: #### L 100.0500, L500.2500 ####[facility] [address] [place], [address] Glucose [Mass/Vol] 105 mg/dL Normal 74-106 [facility] Comment on above: Result Comment: Fast ing Glucose result from 100 to 125 mg/dLsuggests IMPAIRED HOMEOSTASIS per A.D.A. criteria. Performed By: #### L 100.0500, L500.2500 ####[facility] [address] [place], [address] Potassium [Moles/Vol] 4.2 mmol/L Normal 3.5-5.1 [facility] Comment on above: Performed By: #### L 100.0500, L500.2500 ####[facility] [address] [place], [address] Sodium [Moles/Vol] 135 mmol/L Low 136-145 [facility] Comment on above: Performed By: #### L 100.0500, L500.2500 ####[facility] [address] [place], [address] Urea nitrogen [Mass/Vol] 47 mg/dL High 7-18 [facility] Comment on above: Performed By: #### L 100.0500, L500.2500 ####[facility] [address] [place], [address] Bedside Glucoseon 05-09-2024 FINGERSTICK GLU 176 mg/dL High 74-106 [facility] Comment on above: Result Comment: FANG GEMENT OF PATIENT CARE PER NURSING PROTOCOL Performed By: #### L 501.080 ####[facility] [address] [place], [address] FINGERSTICK GLU 264 mg/dL High 74-106 [facility] Comment on above: Result Comment: FANG GEMENT OF PATIENT CARE PER NURSING PROTOCOL Performed By: #### L 501.080 ####[facility] [address] [place], [address] FINGERSTICK GLU 90 mg/dL Normal 74-106 [facility] Comment on above: Result Comment: FANG GEMENT OF PATIENT CARE PER NURSING PROTOCOL Performed By: #### L 501.080 ####[facility] [address] [place], [address] CBC-Complete Blood Cnt No Di ffon 05-09-2024 Erythrocyte distribution width (RBC) [Ratio] 15.1 % High 11.6-14.6 [facility] Comment on above: Performed By: #### L 100.0500, L500.2500 ####[facility] [address] [place], [address] Hematocrit (Bld) [Volume fraction] 29.4 % Low 40-54 [facility] Comment on above: Performed By: #### L 100.0500, L500.2500 ####[facility] [address] [place], [address] Hemoglobin (Bld) [Mass/Vol] 8.7 g/dL Low 13.0-16.5 [facility] Comment on above: Performed By: #### L 100.0500, L500.2500 ####[facility] [address] [place], [address] MCH (RBC) [Entitic mass] 28.5 pg Normal 27.0-32.0 [facility] Comment on above: Performed By: #### L 100.0500, L500.2500 ####[facility] [address] [place], [address] MCHC (RBC) [Mass/Vol] 29.6 g/dL Low 32-36 [facility] Comment on above: Performed By: #### L 100.0500, L500.2500 ####[facility] [address] [place], [address] MCV (RBC) [Entitic vol] 96.4 fL High 80-94 [facility] Comment on above: Performed By: #### L 100.0500, L500.2500 ####[facility] [address] [place], [address] Platelet mean volume (Bld) [Entitic vol] 11.5 fL Normal 6.2-12.0 [facility] Comment on above: Performed By: #### L 100.0500, L500.2500 ####[facility] [address] [place], [address] Platelets (Bld) [#/Vol] 206 10*3/uL Normal 150-450 [facility] Comment on above: Performed By: #### L 100.0500, L500.2500 ####[facility] [address] [place], [address] RBC (Bld) [#/Vol] 3.05 10*6/uL Low 4.6-6.2 [facility] Comment on above: Performed By: #### L 100.0500, L500.2500 ####[facility] [address] [place], [address] RDW SD 53.7 fl High 35.1-43.9 [facility] Comment on above: Performed By: #### L 100.0500, L500.2500 ####[facility] [address] [place], [address] WBC (Bld) [#/Vol] 10.1 10*3/uL Normal 4.4-11.0 [facility] Comment on above: Performed By: #### L 100.0500, L500.2500 ####[facility] [address] [place], [address] Basic Metabolic Profile (BMP )on 05-08-2024 BUN/CRE 12.0 RATIO Normal 10-20 [facility] Comment on above: Performed By: #### L 500.2500, L100.0500 ####[facility] [address] [place], [address] CA,Total 8.5 mg/dL Normal 8.5-10.1 [facility] Comment on above: Performed By: #### L 500.2500, L100.0500 ####[facility] [address] [place], [address] Chloride [Moles/Vol] 99 mmol/L Normal 98-107 [facility] Comment on above: Performed By: #### L 500.2500, L100.0500 ####[facility] [address] [place], [address] CO2 [Moles/Vol] 27.0 mmol/L Normal 21.0-32.0 [facility] Comment on above: Performed By: #### L 500.2500, L100.0500 ####[facility] [address] [place], [address] Creatinine [Mass/Vol] 6.26 mg/dL High 0.70-1.30 [facility] Comment on above: Result Comment: The validity of the calculated GFR GFRAA in patients over70 years has not been determined. Clinical correlation isessential. Performed By: #### L 500.2500, L100.0500 ####[facility] [address] [place], [address] ECRCL 9.02 ml/min Normal [facility] Comment on above: Performed By: #### L 500.2500, L100.0500 ####[facility] [address] [place], [address] EST GFR - AA 11 mL/min Low >60 [facility] Comment on above: Result Comment: Afri can Trinidadian GFR Calc Performed By: #### L 500.2500, L100.0500 ####[facility] [address] [place], [address] GAP 7 Normal 5-15 [facility] Comment on above: Performed By: #### L 500.2500, L100.0500 ####[facility] [address] [place], [address] GFR/1.73 sq M.predicted among non-blacks MDRD (S/P/Bld) [Vol rate/Area] 9 mL/min/{1.73_m2} Low >60 [facility] Comment on above: Result Comment: Non- GFR Calc Performed By: #### L 500.2500, L100.0500 ####[facility] [address] [place], [address] Glucose [Mass/Vol] 198 mg/dL High 74-106 [facility] Comment on above: Result Comment: Fast ing Glucose result greater than or equal to 126 mg/dLsuggests DIABETES MELLITUS per A.D.A. criteria. Performed By: #### L 500.2500, L100.0500 ####[facility] [address] [place], [address] Potassium [Moles/Vol] 4.9 mmol/L Normal 3.5-5.1 [facility] Comment on above: Performed By: #### L 500.2500, L100.0500 ####[facility] [address] [place], [address] Sodium [Moles/Vol] 133 mmol/L Low 136-145 [facility] Comment on above: Performed By: #### L 500.2500, L100.0500 ####[facility] [address] [place], [address] Urea nitrogen [Mass/Vol] 75 mg/dL High 7-18 [facility] Comment on above: Performed By: #### L 500.2500, L100.0500 ####[facility] [address] [place], [address] Bedside Glucoseon 05-08-2024 FINGERSTICK GLU 154 mg/dL High 74-106 [facility] Comment on above: Result Comment: FANG TAYLOR OF PATIENT CARE PER NURSING PROTOCOL Performed By: #### L 501.080 ####[facility] [address] [place], [address] FINGERSTICK GLU 212 mg/dL High 74-106 [facility] Comment on above: Result Comment: FANG GEMENT OF PATIENT CARE PER NURSING PROTOCOL Performed By: #### L 501.080 ####[facility] [address] [place], [address] FINGERSTICK GLU 194 mg/dL High 74-106 [facility] Comment on above: Result Comment: FANG GEMENT OF PATIENT CARE PER NURSING PROTOCOL Performed By: #### L 501.080 ####[facility] [address] [place], [address] CBC-Complete Blood Cnt No Di ffon 05-08-2024 Erythrocyte distribution width (RBC) [Ratio] 14.9 % High 11.6-14.6 [facility] Comment on above: Performed By: #### L 500.2500, L100.0500 ####[facility] [address] [place], [address] Hematocrit (Bld) [Volume fraction] 29.5 % Low 40-54 [facility] Comment on above: Performed By: #### L 500.2500, L100.0500 ####[facility] [address] [place], [address] Hemoglobin (Bld) [Mass/Vol] 8.8 g/dL Low 13.0-16.5 [facility] Comment on above: Performed By: #### L 500.2500, L100.0500 ####[facility] [address] [place], [address] MCH (RBC) [Entitic mass] 28.9 pg Normal 27.0-32.0 [facility] Comment on above: Performed By: #### L 500.2500, L100.0500 ####[facility] [address] [place], [address] MCHC (RBC) [Mass/Vol] 29.8 g/dL Low 32-36 [facility] Comment on above: Performed By: #### L 500.2500, L100.0500 ####[facility] [address] [place], [address] MCV (RBC) [Entitic vol] 97.0 fL High 80-94 [facility] Comment on above: Performed By: #### L 500.2500, L100.0500 ####[facility] [address] [place], [address] Platelet mean volume (Bld) [Entitic vol] 11.3 fL Normal 6.2-12.0 [facility] Comment on above: Performed By: #### L 500.2500, L100.0500 ####[facility] [address] [place], [address] Platelets (Bld) [#/Vol] 210 10*3/uL Normal 150-450 [facility] Comment on above: Performed By: #### L 500.2500, L100.0500 ####[facility] [address] [place], [address] RBC (Bld) [#/Vol] 3.04 10*6/uL Low 4.6-6.2 [facility] Comment on above: Performed By: #### L 500.2500, L100.0500 ####[facility] [address] [place], [address] RDW SD 52.8 fl High 35.1-43.9 [facility] Comment on above: Performed By: #### L 500.2500, L100.0500 ####[facility] [address] [place], [address] WBC (Bld) [#/Vol] 9.7 10*3/uL Normal 4.4-11.0 [facility] Comment on above: Performed By: #### L 500.2500, L100.0500 ####[facility] [address] [place], [address] Consultation - Infectious Dx on 05-08-2024 Consultation - Infectious Dx Normal [facility] Gram Stainon 05-08-2024 GS COLLECTED IN OR RIGH T HALLUX AND 1ST METATARSAL Gram Stain Rare White Blood Cells Rare Gram positive cocci No Epithelial cells Normal [facility] Comment on above: Performed By: #### M 100.2000, M100.3000, M100.4001 ####[facility] [address] [place], [address] Basic Metabolic Profile (BMP )on 05-07-2024 BUN/CRE 12.3 RATIO Normal 10-20 [facility] Comment on above: Performed By: #### L 500.2500, L100.0500 ####[facility] [address] [place], [address] CA,Total 8.7 mg/dL Normal 8.5-10.1 [facility] Comment on above: Performed By: #### L 500.2500, L100.0500 ####[facility] [address] [place], [address] Chloride [Moles/Vol] 100 mmol/L Normal 98-107 [facility] Comment on above: Performed By: #### L 500.2500, L100.0500 ####[facility] [address] [place], [address] CO2 [Moles/Vol] 28.0 mmol/L Normal 21.0-32.0 [facility] Comment on above: Performed By: #### L 500.2500, L100.0500 ####[facility] [address] [place], [address] Creatinine [Mass/Vol] 5.45 mg/dL High 0.70-1.30 [facility] Comment on above: Result Comment: The validity of the calculated GFR GFRAA in patients over70 years has not been determined. Clinical correlation isessential. Performed By: #### L 500.2500, L100.0500 ####[facility] [address] [place], [address] ECRCL 10.36 ml/min Normal [facility] Comment on above: Performed By: #### L 500.2500, L100.0500 ####[facility] [address] [place], [address] EST GFR - AA 13 mL/min Low >60 [facility] Comment on above: Result Comment: Afri can Trinidadian GFR Calc Performed By: #### L 500.2500, L100.0500 ####[facility] [address] [place], [address] GAP 6 Normal 5-15 [facility] Comment on above: Performed By: #### L 500.2500, L100.0500 ####[facility] [address] [place], [address] GFR/1.73 sq M.predicted among non-blacks MDRD (S/P/Bld) [Vol rate/Area] 11 mL/min/{1.73_m2} Low >60 [facility] Comment on above: Result Comment: Non- GFR Calc Performed By: #### L 500.2500, L100.0500 ####[facility] [address] [place], [address] Glucose [Mass/Vol] 131 mg/dL High 74-106 [facility] Comment on above: Result Comment: Fast ing Glucose result greater than or equal to 126 mg/dLsuggests DIABETES MELLITUS per A.D.A. criteria. Performed By: #### L 500.2500, L100.0500 ####[facility] [address] [place], [address] Potassium [Moles/Vol] 4.6 mmol/L Normal 3.5-5.1 [facility] Comment on above: Performed By: #### L 500.2500, L100.0500 ####[facility] [address] [place], [address] Sodium [Moles/Vol] 134 mmol/L Low 136-145 [facility] Comment on above: Performed By: #### L 500.2500, L100.0500 ####[facility] [address] [place], [address] Urea nitrogen [Mass/Vol] 67 mg/dL High 7-18 [facility] Comment on above: Performed By: #### L 500.2500, L100.0500 ####[facility] [address] [place], [address] Bedside Glucoseon 05-07-2024 FINGERSTICK GLU 148 mg/dL High 74-106 [facility] Comment on above: Result Comment: FANG GEMENT OF PATIENT CARE PER NURSING PROTOCOL Performed By: #### L 501.080 ####[facility] [address] [place], [address] FINGERSTICK GLU 102 mg/dL Normal 74-106 [facility] Comment on above: Result Comment: FANG GEMENT OF PATIENT CARE PER NURSING PROTOCOL Performed By: #### L 501.080 ####[facility] [address] [place], [address] FINGERSTICK GLU 120 mg/dL High 74-106 [facility] Comment on above: Result Comment: FANG GEMENT OF PATIENT CARE PER NURSING PROTOCOL Performed By: #### L 501.080 ####[facility] [address] [place], [address] CBC-Complete Blood Cnt No Di ffon 05-07-2024 Erythrocyte distribution width (RBC) [Ratio] 15.0 % High 11.6-14.6 [facility] Comment on above: Performed By: #### L 500.2500, L100.0500 ####[facility] [address] [place], [address] Hematocrit (Bld) [Volume fraction] 29.8 % Low 40-54 [facility] Comment on above: Performed By: #### L 500.2500, L100.0500 ####[facility] [address] [place], [address] Hemoglobin (Bld) [Mass/Vol] 9.1 g/dL Low 13.0-16.5 [facility] Comment on above: Performed By: #### L 500.2500, L100.0500 ####[facility] [address] [place], [address] MCH (RBC) [Entitic mass] 29.6 pg Normal 27.0-32.0 [facility] Comment on above: Performed By: #### L 500.2500, L100.0500 ####[facility] [address] [place], [address] MCHC (RBC) [Mass/Vol] 30.5 g/dL Low 32-36 [facility] Comment on above: Performed By: #### L 500.2500, L100.0500 ####[facility] [address] [place], [address] MCV (RBC) [Entitic vol] 97.1 fL High 80-94 [facility] Comment on above: Performed By: #### L 500.2500, L100.0500 ####[facility] [address] [place], [address] Platelet mean volume (Bld) [Entitic vol] 11.0 fL Normal 6.2-12.0 [facility] Comment on above: Performed By: #### L 500.2500, L100.0500 ####[facility] [address] [place], [address] Platelets (Bld) [#/Vol] 223 10*3/uL Normal 150-450 [facility] Comment on above: Performed By: #### L 500.2500, L100.0500 ####[facility] [address] [place], [address] RBC (Bld) [#/Vol] 3.07 10*6/uL Low 4.6-6.2 [facility] Comment on above: Performed By: #### L 500.2500, L100.0500 ####[facility] [address] [place], [address] RDW SD 53.1 fl High 35.1-43.9 [facility] Comment on above: Performed By: #### L 500.2500, L100.0500 ####[facility] [address] [place], [address] WBC (Bld) [#/Vol] 8.1 10*3/uL Normal 4.4-11.0 [facility] Comment on above: Performed By: #### L 500.2500, L100.0500 ####[facility] [address] [place], [address] Decalcification bone/plaqueo n 05-07-2024 Decalcification bone/plaque Normal [facility] Comment on above: Performed By: #### P DEC ####[facility] [address] [place], [address] Foot 2 Viewson 05-07-2024 Foot 2 Views Normal [facility] MR/POSTOP.ANEon 05-07-2024 MR/POSTOP.ANE Normal [facility] MR/RUKXWQUI0fg 05-07-2024 MR/POSTOPAN2 Normal [facility] Operative Reporton Operative Report Normal [facility] Basic Metabolic Profile (BMP )on 05-06-2024 BUN/CRE 11.3 RATIO Normal 10-20 [facility] Comment on above: Performed By: #### L 500.2500, L100.0500 ####[facility] [address] [place], [address] CA,Total 8.9 mg/dL Normal 8.5-10.1 [facility] Comment on above: Performed By: #### L 500.2500, L100.0500 ####[facility] [address] [place], [address] Chloride [Moles/Vol] 99 mmol/L Normal 98-107 [facility] Comment on above: Performed By: #### L 500.2500, L100.0500 ####[facility] [address] [place], [address] CO2 [Moles/Vol] 27.0 mmol/L Normal 21.0-32.0 [facility] Comment on above: Performed By: #### L 500.2500, L100.0500 ####[facility] [address] [place], [address] Creatinine [Mass/Vol] 4.26 mg/dL High 0.70-1.30 [facility] Comment on above: Result Comment: The validity of the calculated GFR GFRAA in patients over70 years has not been determined. Clinical correlation isessential. Performed By: #### L 500.2500, L100.0500 ####[facility] [address] [place], [address] ECRCL 13.25 ml/min Normal [facility] Comment on above: Performed By: #### L 500.2500, L100.0500 ####[facility] [address] [place], [address] EST GFR - AA 17 mL/min Low >60 [facility] Comment on above: Result Comment: Afri can Trinidadian GFR Calc Performed By: #### L 500.2500, L100.0500 ####[facility] [address] [place], [address] GAP 7 Normal 5-15 [facility] Comment on above: Performed By: #### L 500.2500, L100.0500 ####[facility] [address] [place], [address] GFR/1.73 sq M.predicted among non-blacks MDRD (S/P/Bld) [Vol rate/Area] 14 mL/min/{1.73_m2} Low >60 [facility] Comment on above: Result Comment: Non- GFR Calc Performed By: #### L 500.2500, L100.0500 ####[facility] [address] [place], [address] Glucose [Mass/Vol] 181 mg/dL High 74-106 [facility] Comment on above: Result Comment: Fast ing Glucose result greater than or equal to 126 mg/dLsuggests DIABETES MELLITUS per A.D.A. criteria. Performed By: #### L 500.2500, L100.0500 ####[facility] [address] [place], [address] Potassium [Moles/Vol] 4.3 mmol/L Normal 3.5-5.1 [facility] Comment on above: Performed By: #### L 500.2500, L100.0500 ####[facility] [address] [place], [address] Sodium [Moles/Vol] 133 mmol/L Low 136-145 [facility] Comment on above: Performed By: #### L 500.2500, L100.0500 ####[facility] [address] [place], [address] Urea nitrogen [Mass/Vol] 48 mg/dL High 7-18 [facility] Comment on above: Performed By: #### L 500.2500, L100.0500 ####[facility] [address] [place], [address] Bedside Glucoseon 05-06-2024 FINGERSTICK GLU 215 mg/dL High 74-106 [facility] Comment on above: Result Comment: FANG GEMENT OF PATIENT CARE PER NURSING PROTOCOL Performed By: #### L 501.080 ####[facility] [address] [place], [address] FINGERSTICK GLU 142 mg/dL High 74-106 [facility] Comment on above: Result Comment: FANG GEMENT OF PATIENT CARE PER NURSING PROTOCOL Performed By: #### L 501.080 ####[facility] [address] [place], [address] FINGERSTICK GLU 228 mg/dL High 74-106 [facility] Comment on above: Result Comment: FANG GEMENT OF PATIENT CARE PER NURSING PROTOCOL Performed By: #### L 501.080 ####[facility] [address] [place], [address] CBC-Complete Blood Cnt No Di ffon 05-06-2024 Erythrocyte distribution width (RBC) [Ratio] 15.1 % High 11.6-14.6 [facility] Comment on above: Performed By: #### L 500.2500, L100.0500 ####[facility] [address] [place], [address] Hematocrit (Bld) [Volume fraction] 32.3 % Low 40-54 [facility] Comment on above: Performed By: #### L 500.2500, L100.0500 ####[facility] [address] [place], [address] Hemoglobin (Bld) [Mass/Vol] 9.7 g/dL Low 13.0-16.5 [facility] Comment on above: Performed By: #### L 500.2500, L100.0500 ####[facility] [address] [place], [address] MCH (RBC) [Entitic mass] 29.2 pg Normal 27.0-32.0 [facility] Comment on above: Performed By: #### L 500.2500, L100.0500 ####[facility] [address] [place], [address] MCHC (RBC) [Mass/Vol] 30.0 g/dL Low 32-36 [facility] Comment on above: Performed By: #### L 500.2500, L100.0500 ####[facility] [address] [place], [address] MCV (RBC) [Entitic vol] 97.3 fL High 80-94 [facility] Comment on above: Performed By: #### L 500.2500, L100.0500 ####[facility] [address] [place], [address] Platelet mean volume (Bld) [Entitic vol] 11.1 fL Normal 6.2-12.0 [facility] Comment on above: Performed By: #### L 500.2500, L100.0500 ####[facility] [address] [place], [address] Platelets (Bld) [#/Vol] 238 10*3/uL Normal 150-450 [facility] Comment on above: Performed By: #### L 500.2500, L100.0500 ####[facility] [address] [place], [address] RBC (Bld) [#/Vol] 3.32 10*6/uL Low 4.6-6.2 [facility] Comment on above: Performed By: #### L 500.2500, L100.0500 ####[facility] [address] [place], [address] RDW SD 54.1 fl High 35.1-43.9 [facility] Comment on above: Performed By: #### L 500.2500, L100.0500 ####[facility] [address] [place], [address] WBC (Bld) [#/Vol] 8.5 10*3/uL Normal 4.4-11.0 [facility] Comment on above: Performed By: #### L 500.2500, L100.0500 ####[facility] [address] [place], [address] Basic Metabolic Profile (BMP )on 05-05-2024 BUN/CRE 9.2 RATIO Low 10-20 [facility] Comment on above: Performed By: #### L 100.0100, L500.2500 ####[facility] [address] [place], [address] CA,Total 8.9 mg/dL Normal 8.5-10.1 [facility] Comment on above: Performed By: #### L 100.0100, L500.2500 ####[facility] [address] [place], [address] Chloride [Moles/Vol] 95 mmol/L Low 98-107 [facility] Comment on above: Performed By: #### L 100.0100, L500.2500 ####[facility] [address] [place], [address] CO2 [Moles/Vol] 30.0 mmol/L Normal 21.0-32.0 [facility] Comment on above: Performed By: #### L 100.0100, L500.2500 ####[facility] [address] [place], [address] Creatinine [Mass/Vol] 5.32 mg/dL High 0.70-1.30 [facility] Comment on above: Result Comment: The validity of the calculated GFR GFRAA in patients over70 years has not been determined. Clinical correlation isessential. Performed By: #### L 100.0100, L500.2500 ####[facility] [address] [place], [address] ECRCL 10.63 ml/min Normal [facility] Comment on above: Performed By: #### L 100.0100, L500.2500 ####[facility] [address] [place], [address] EST GFR - AA 13 mL/min Low >60 [facility] Comment on above: Result Comment: Afri can Trinidadian GFR Calc Performed By: #### L 100.0100, L500.2500 ####[facility] [address] [place], [address] GAP 11 Normal 5-15 [facility] Comment on above: Performed By: #### L 100.0100, L500.2500 ####[facility] [address] [place], [address] GFR/1.73 sq M.predicted among non-blacks MDRD (S/P/Bld) [Vol rate/Area] 11 mL/min/{1.73_m2} Low >60 [facility] Comment on above: Result Comment: Non- GFR Calc Performed By: #### L 100.0100, L500.2500 ####[facility] [address] [place], [address] Glucose [Mass/Vol] 111 mg/dL High 74-106 [facility] Comment on above: Result Comment: Fast ing Glucose result from 100 to 125 mg/dLsuggests IMPAIRED HOMEOSTASIS per A.D.A. criteria. Performed By: #### L 100.0100, L500.2500 ####[facility] [address] [place], [address] Potassium [Moles/Vol] 3.9 mmol/L Normal 3.5-5.1 [facility] Comment on above: Performed By: #### L 100.0100, L500.2500 ####[facility] [address] [place], [address] Sodium [Moles/Vol] 135 mmol/L Low 136-145 [facility] Comment on above: Performed By: #### L 100.0100, L500.2500 ####[facility] [address] [place], [address] Urea nitrogen [Mass/Vol] 49 mg/dL High 7-18 [facility] Comment on above: Performed By: #### L 100.0100, L500.2500 ####[facility] [address] [place], [address] Bedside Glucoseon 05-05-2024 FINGERSTICK GLU 155 mg/dL High 74-106 [facility] Comment on above: Result Comment: FANG GEMENT OF PATIENT CARE PER NURSING PROTOCOL Performed By: #### L 501.080 ####[facility] [address] [place], [address] FINGERSTICK GLU 210 mg/dL High 74-106 [facility] Comment on above: Result Comment: FANG GEMENT OF PATIENT CARE PER NURSING PROTOCOL Performed By: #### L 501.080 ####[facility] [address] [place], [address] FINGERSTICK GLU 202 mg/dL High 74-106 [facility] Comment on above: Result Comment: FANG GEMENT OF PATIENT CARE PER NURSING PROTOCOL Performed By: #### L 501.080 ####[facility] [address] [place], [address] FINGERSTICK GLU 136 mg/dL High 74-106 [facility] Comment on above: Result Comment: FANG GEMENT OF PATIENT CARE PER NURSING PROTOCOL Performed By: #### L 501.080 ####[facility] [address] [place], [address] FINGERSTICK GLU 171 mg/dL High 74-106 [facility] Comment on above: Result Comment: FANG GEMENT OF PATIENT CARE PER NURSING PROTOCOL Performed By: #### L 501.080 ####[facility] [address] [place], [address] CBC W/Diff, Automatedon 12- Absolute Lymph 2.35 X10 3/uL Normal 0.83-4.51 [facility] Comment on above: Performed By: #### L 100.0100, L500.2500 ####[facility] [address] [place], [address] Absolute Neut 6.8 X10 3/uL Normal 2.0-7.7 [facility] Comment on above: Performed By: #### L 100.0100, L500.2500 ####[facility] [address] [place], [address] Basophils/100 WBC (Bld) 0.8 % Normal 0-1 [facility] Comment on above: Performed By: #### L 100.0100, L500.2500 ####[facility] [address] [place], [address] Eosinophils/100 WBC (Bld) 3.1 % Normal 0-5 [facility] Comment on above: Performed By: #### L 100.0100, L500.2500 ####[facility] [address] [place], [address] Erythrocyte distribution width (RBC) [Ratio] 15.1 % High 11.6-14.6 [facility] Comment on above: Performed By: #### L 100.0100, L500.2500 ####[facility] [address] [place], [address] Hematocrit (Bld) [Volume fraction] 31.1 % Low 40-54 [facility] Comment on above: Performed By: #### L 100.0100, L500.2500 ####[facility] [address] [place], [address] Hemoglobin (Bld) [Mass/Vol] 9.4 g/dL Low 13.0-16.5 [facility] Comment on above: Performed By: #### L 100.0100, L500.2500 ####[facility] [address] [place], [address] IG% 0.600 Normal 0.0-0.9 [facility] Comment on above: Result Comment: IG% - Immature Granulocytes (promyelocytes, myelocytes andmetamyelocytes) > 1% indicates that a LEFT SHIFT is Present. Performed By: #### L 100.0100, L500.2500 ####[facility] [address] [place], [address] Lymphocytes/100 WBC (Bld) 22.1 % Normal 19-41 [facility] Comment on above: Performed By: #### L 100.0100, L500.2500 ####[facility] [address] [place], [address] MCH (RBC) [Entitic mass] 28.8 pg Normal 27.0-32.0 [facility] Comment on above: Performed By: #### L 100.0100, L500.2500 ####[facility] [address] [place], [address] MCHC (RBC) [Mass/Vol] 30.2 g/dL Low 32-36 [facility] Comment on above: Performed By: #### L 100.0100, L500.2500 ####[facility] [address] [place], [address] MCV (RBC) [Entitic vol] 95.4 fL High 80-94 [facility] Comment on above: Performed By: #### L 100.0100, L500.2500 ####[facility] [address] [place], [address] Monocytes/100 WBC (Bld) 9.2 % Normal 0-10 [facility] Comment on above: Performed By: #### L 100.0100, L500.2500 ####[facility] [address] [place], [address] Neutrophils/100 WBC (Bld) 64.2 % Normal 47-70 [facility] Comment on above: Performed By: #### L 100.0100, L500.2500 ####[facility] [address] [place], [address] Nucleated RBC (Bld) [#/Vol] 0 10*3/uL Normal 0-5 [facility] Comment on above: Performed By: #### L 100.0100, L500.2500 ####[facility] [address] [place], [address] Platelet mean volume (Bld) [Entitic vol] 11.2 fL Normal 6.2-12.0 [facility] Comment on above: Performed By: #### L 100.0100, L500.2500 ####[facility] [address] [place], [address] Platelets (Bld) [#/Vol] 263 10*3/uL Normal 150-450 [facility] Comment on above: Performed By: #### L 100.0100, L500.2500 ####[facility] [address] [place], [address] RBC (Bld) [#/Vol] 3.26 10*6/uL Low 4.6-6.2 [facility] Comment on above: Performed By: #### L 100.0100, L500.2500 ####[facility] [address] [place], [address] RDW SD 52.6 fl High 35.1-43.9 [facility] Comment on above: Performed By: #### L 100.0100, L500.2500 ####[facility] [address] [place], [address] WBC (Bld) [#/Vol] 10.6 10*3/uL Normal 4.4-11.0 [facility] Comment on above: Performed By: #### L 100.0100, L500.2500 ####[facility] [address] [place], [address] Consultation - Nephrologyon 05-05-2024 Consultation - Nephrology Normal [facility] 12 Lead EKGon 05-04-2024 12 Lead EKG Normal [facility] Ankle Brachial Indexon 05-04 Ankle Brachial Index Normal [facility] Basic Metabolic Profile (BMP )on 05-04-2024 BUN/CRE 6.8 RATIO Low 10-20 [facility] Comment on above: Performed By: #### L 100.0100, L501.6710, L101.9900, L500.2500 ####[facility] [address] [place], [address] CA,Total 9.4 mg/dL Normal 8.5-10.1 [facility] Comment on above: Performed By: #### L 100.0100, L501.6710, L101.9900, L500.2500 ####[facility] [address] [place], [address] Chloride [Moles/Vol] 94 mmol/L Low 98-107 [facility] Comment on above: Performed By: #### L 100.0100, L501.6710, L101.9900, L500.2500 ####[facility] [address] [place], [address] CO2 [Moles/Vol] 31.0 mmol/L Normal 21.0-32.0 [facility] Comment on above: Performed By: #### L 100.0100, L501.6710, L101.9900, L500.2500 ####[facility] [address] [place], [address] Creatinine [Mass/Vol] 4.58 mg/dL High 0.70-1.30 [facility] Comment on above: Result Comment: The validity of the calculated GFR GFRAA in patients over70 years has not been determined. Clinical correlation isessential. Performed By: #### L 100.0100, L501.6710, L101.9900, L500.2500 ####[facility] [address] [place], [address] ECRCL 13.00 ml/min Normal [facility] Comment on above: Performed By: #### L 100.0100, L501.6710, L101.9900, L500.2500 ####[facility] [address] [place], [address] EST GFR - AA 16 mL/min Low >60 [facility] Comment on above: Result Comment: Afri can Trinidadian GFR Calc Performed By: #### L 100.0100, L501.6710, L101.9900, L500.2500 ####[facility] [address] [place], [address] GAP 7 Normal 5-15 [facility] Comment on above: Performed By: #### L 100.0100, L501.6710, L101.9900, L500.2500 ####[facility] [address] [place], [address] GFR/1.73 sq M.predicted among non-blacks MDRD (S/P/Bld) [Vol rate/Area] 13 mL/min/{1.73_m2} Low >60 [facility] Comment on above: Result Comment: Non- GFR Calc Performed By: #### L 100.0100, L501.6710, L101.9900, L500.2500 ####[facility] [address] [place], [address] Glucose [Mass/Vol] 297 mg/dL High 74-106 [facility] Comment on above: Result Comment: Gluc ose result greater than or equal to 200 mg/dLsuggests DIABETES MELLITUS per A.D.A. criteria. Performed By: #### L 100.0100, L501.6710, L101.9900, L500.2500 ####[facility] [address] [place], [address] Potassium [Moles/Vol] 3.7 mmol/L Normal 3.5-5.1 [facility] Comment on above: Performed By: #### L 100.0100, L501.6710, L101.9900, L500.2500 ####[facility] [address] [place], [address] Sodium [Moles/Vol] 133 mmol/L Low 136-145 [facility] Comment on above: Performed By: #### L 100.0100, L501.6710, L101.9900, L500.2500 ####[facility] [address] [place], [address] Urea nitrogen [Mass/Vol] 31 mg/dL High 7-18 [facility] Comment on above: Performed By: #### L 100.0100, L501.6710, L101.9900, L500.2500 ####[facility] [address] [place], [address] Bedside Glucoseon - FINGERSTICK GLU 342 mg/dL High 74-106 [facility] Comment on above: Result Comment: FANG VAZQUEZ OF PATIENT CARE PER NURSING PROTOCOL Performed By: #### L 501.080 ####[facility] [address] [place], [address] CBC W/Diff, Automatedon 04-22 Absolute Lymph 2.08 X10 3/uL Normal 0.83-4.51 [facility] Comment on above: Performed By: #### L 100.0100, L501.6710, L101.9900, L500.2500 ####[facility] [address] [place], [address] Absolute Neut 5.8 X10 3/uL Normal 2.0-7.7 [facility] Comment on above: Performed By: #### L 100.0100, L501.6710, L101.9900, L500.2500 ####[facility] [address] [place], [address] Basophils/100 WBC (Bld) 1.0 % Normal 0-1 [facility] Comment on above: Performed By: #### L 100.0100, L501.6710, L101.9900, L500.2500 ####[facility] [address] [place], [address] Eosinophils/100 WBC (Bld) 2.4 % Normal 0-5 [facility] Comment on above: Performed By: #### L 100.0100, L501.6710, L101.9900, L500.2500 ####[facility] [address] [place], [address] Erythrocyte distribution width (RBC) [Ratio] 15.4 % High 11.6-14.6 [facility] Comment on above: Performed By: #### L 100.0100, L501.6710, L101.9900, L500.2500 ####[facility] [address] [place], [address] Hematocrit (Bld) [Volume fraction] 36.7 % Low 40-54 [facility] Comment on above: Performed By: #### L 100.0100, L501.6710, L101.9900, L500.2500 ####[facility] [address] [place], [address] Hemoglobin (Bld) [Mass/Vol] 11.3 g/dL Low 13.0-16.5 [facility] Comment on above: Performed By: #### L 100.0100, L501.6710, L101.9900, L500.2500 ####[facility] [address] [place], [address] IG% 0.800 Normal 0.0-0.9 [facility] Comment on above: Result Comment: IG% - Immature Granulocytes (promyelocytes, myelocytes andmetamyelocytes) > 1% indicates that a LEFT SHIFT is Present. Performed By: #### L 100.0100, L501.6710, L101.9900, L500.2500 ####[facility] [address] [place], [address] Lymphocytes/100 WBC (Bld) 22.5 % Normal 19-41 [facility] Comment on above: Performed By: #### L 100.0100, L501.6710, L101.9900, L500.2500 ####[facility] [address] [place], [address] MCH (RBC) [Entitic mass] 29.3 pg Normal 27.0-32.0 [facility] Comment on above: Performed By: #### L 100.0100, L501.6710, L101.9900, L500.2500 ####[facility] [address] [place], [address] MCHC (RBC) [Mass/Vol] 30.8 g/dL Low 32-36 [facility] Comment on above: Performed By: #### L 100.0100, L501.6710, L101.9900, L500.2500 ####[facility] [address] [place], [address] MCV (RBC) [Entitic vol] 95.1 fL High 80-94 [facility] Comment on above: Performed By: #### L 100.0100, L501.6710, L101.9900, L500.2500 ####[facility] [address] [place], [address] Monocytes/100 WBC (Bld) 10.2 % High 0-10 [facility] Comment on above: Performed By: #### L 100.0100, L501.6710, L101.9900, L500.2500 ####[facility] [address] [place], [address] Neutrophils/100 WBC (Bld) 63.1 % Normal 47-70 [facility] Comment on above: Performed By: #### L 100.0100, L501.6710, L101.9900, L500.2500 ####[facility] [address] [place], [address] Nucleated RBC (Bld) [#/Vol] 0 10*3/uL Normal 0-5 [facility] Comment on above: Performed By: #### L 100.0100, L501.6710, L101.9900, L500.2500 ####[facility] [address] [place], [address] Platelet mean volume (Bld) [Entitic vol] 11.4 fL Normal 6.2-12.0 [facility] Comment on above: Performed By: #### L 100.0100, L501.6710, L101.9900, L500.2500 ####[facility] [address] [place], [address] Platelets (Bld) [#/Vol] 288 10*3/uL Normal 150-450 [facility] Comment on above: Performed By: #### L 100.0100, L501.6710, L101.9900, L500.2500 ####[facility] [address] [place], [address] RBC (Bld) [#/Vol] 3.86 10*6/uL Low 4.6-6.2 [facility] Comment on above: Performed By: #### L 100.0100, L501.6710, L101.9900, L500.2500 ####[facility] [address] [place], [address] RDW SD 53.0 fl High 35.1-43.9 [facility] Comment on above: Performed By: #### L 100.0100, L501.6710, L101.9900, L500.2500 ####[facility] [address] [place], [address] WBC (Bld) [#/Vol] 9.2 10*3/uL Normal 4.4-11.0 [facility] Comment on above: Performed By: #### L 100.0100, L501.6710, L101.9900, L500.2500 ####[facility] [address] [place], [address] CRPon 05-04-2024 C-REACTIVE PROT 72.90 mg/L High 0.0-3.0 [facility] Comment on above: Result Comment: C-Re active Protein (CRP) provides useful information for thediagnosis, therapy and monitoring of inflammatory processesand associated diseases. For the evaluation of Relative Riskfor Cardiovascular Disease, a High Sensitivity CRP (HSCRP)should be ordered. Performed By: #### L 100.0100, L501.6710, L101.9900, L500.2500 ####[facility] [address] [place], [address] Consultation - Surgicalon Consultation - Surgical Normal [facility] Emergency Department Summary on 05-04-2024 Emergency Department Summary Normal [facility] Erythrocyte Sed Rateon 05-04 SED RATE 81 mm/hr High 0-20 [facility] Comment on above: Performed By: #### L 100.0100, L501.6710, L101.9900, L500.2500 ####[facility] [address] [place], [address] Foot min 3 Viewson 4 Foot min 3 Views Normal [facility] H AND P Exam - Hospitaliston 05-04-2024 H&P Exam - Hospitalist Normal [facility] US Art Duplex Unilat Lower E xton 05-04-2024 US Art Duplex Unilat Lower Ext Normal [facility] Basic Metabolic Profile (BMP )on 05-02-2024 BUN/CRE 6.9 RATIO Low 10-20 [facility] Comment on above: Order Comment: 107.2 Performed By: #### L 100.0500, L500.2500 ####[facility] [address] [place], [address] CA,Total 8.8 mg/dL Normal 8.5-10.1 [facility] Comment on above: Order Comment: 107.2 Performed By: #### L 100.0500, L500.2500 ####[facility] [address] [place], [address] Chloride [Moles/Vol] 96 mmol/L Low 98-107 [facility] Comment on above: Order Comment: 107.2 Performed By: #### L 100.0500, L500.2500 ####[facility] [address] [place], [address] CO2 [Moles/Vol] 30.0 mmol/L Normal 21.0-32.0 [facility] Comment on above: Order Comment: 107.2 Performed By: #### L 100.0500, L500.2500 ####[facility] [address] [place], [address] Creatinine [Mass/Vol] 4.34 mg/dL High 0.70-1.30 [facility] Comment on above: Order Comment: 107.2 Result Comment: The validity of the calculated GFR GFRAA in patients over70 years has not been determined. Clinical correlation isessential. Performed By: #### L 100.0500, L500.2500 ####[facility] [address] [place], [address] EST GFR - AA 17 mL/min Low >60 [facility] Comment on above: Order Comment: 107.2 Result Comment: Afri can Trinidadian GFR Calc Performed By: #### L 100.0500, L500.2500 ####[facility] [address] [place], [address] GAP 7 Normal 5-15 [facility] Comment on above: Order Comment: 107.2 Performed By: #### L 100.0500, L500.2500 ####[facility] [address] [place], [address] GFR/1.73 sq M.predicted among non-blacks MDRD (S/P/Bld) [Vol rate/Area] 14 mL/min/{1.73_m2} Low >60 [facility] Comment on above: Order Comment: 107.2 Result Comment: Non- GFR Calc Performed By: #### L 100.0500, L500.2500 ####[facility] [address] [place], [address] Glucose [Mass/Vol] 138 mg/dL High 74-106 [facility] Comment on above: Order Comment: 107.2 Result Comment: Fast ing Glucose result greater than or equal to 126 mg/dLsuggests DIABETES MELLITUS per A.D.A. criteria. Performed By: #### L 100.0500, L500.2500 ####[facility] [address] [place], [address] Potassium [Moles/Vol] 3.6 mmol/L Normal 3.5-5.1 [facility] Comment on above: Order Comment: 107.2 Performed By: #### L 100.0500, L500.2500 ####[facility] [address] [place], [address] Sodium [Moles/Vol] 133 mmol/L Low 136-145 [facility] Comment on above: Order Comment: 107.2 Performed By: #### L 100.0500, L500.2500 ####[facility] [address] [place], [address] Urea nitrogen [Mass/Vol] 30 mg/dL High 7-18 [facility] Comment on above: Order Comment: 107.2 Performed By: #### L 100.0500, L500.2500 ####[facility] [address] [place], [address] CBC-Complete Blood Cnt No Di ffon 05-02-2024 Erythrocyte distribution width (RBC) [Ratio] 15.1 % High 11.6-14.6 [facility] Comment on above: Order Comment: 107.2 Performed By: #### L 100.0500, L500.2500 ####[facility] [address] [place], [address] Hematocrit (Bld) [Volume fraction] 29.9 % Low 40-54 [facility] Comment on above: Order Comment: 107.2 Performed By: #### L 100.0500, L500.2500 ####[facility] [address] [place], [address] Hemoglobin (Bld) [Mass/Vol] 9.6 g/dL Low 13.0-16.5 [facility] Comment on above: Order Comment: 107.2 Performed By: #### L 100.0500, L500.2500 ####[facility] [address] [place], [address] MCH (RBC) [Entitic mass] 30.2 pg Normal 27.0-32.0 [facility] Comment on above: Order Comment: 107.2 Performed By: #### L 100.0500, L500.2500 ####[facility] [address] [place], [address] MCHC (RBC) [Mass/Vol] 32.1 g/dL Normal 32-36 [facility] Comment on above: Order Comment: 107.2 Performed By: #### L 100.0500, L500.2500 ####[facility] [address] [place], [address] MCV (RBC) [Entitic vol] 94.0 fL Normal 80-94 [facility] Comment on above: Order Comment: 107.2 Performed By: #### L 100.0500, L500.2500 ####[facility] [address] [place], [address] Platelet mean volume (Bld) [Entitic vol] 10.9 fL Normal 6.2-12.0 [facility] Comment on above: Order Comment: 107.2 Performed By: #### L 100.0500, L500.2500 ####[facility] [address] [place], [address] Platelets (Bld) [#/Vol] 275 10*3/uL Normal 150-450 [facility] Comment on above: Order Comment: 107.2 Performed By: #### L 100.0500, L500.2500 ####[facility] [address] [place], [address] RBC (Bld) [#/Vol] 3.18 10*6/uL Low 4.6-6.2 [facility] Comment on above: Order Comment: 107.2 Performed By: #### L 100.0500, L500.2500 ####[facility] [address] [place], [address] RDW SD 52.3 fl High 35.1-43.9 [facility] Comment on above: Order Comment: 107.2 Performed By: #### L 100.0500, L500.2500 ####[facility] [address] [place], [address] WBC (Bld) [#/Vol] 8.9 10*3/uL Normal 4.4-11.0 [facility] Comment on above: Order Comment: 107.2 Performed By: #### L 100.0500, L500.2500 ####[facility] [address] [place], [address] Wound Cultureon 05-01-2024 WC Normal [facility] Comment on above: Performed By: #### M 100.4001, M100.2000, M100.3000 ####[facility] [address] [place], [address] Bedside Glucoseon 04-24-2024 FINGERSTICK GLU 202 mg/dL High [address] [place] [address] Comment on above: Result Comment: FANG GEMENT OF PATIENT CARE PER NURSING PROTOCOL Performed By: #### L 501.080 ####[facility] [address] [place], [address] FINGERSTICK GLU 139 mg/dL [address] Comment on above: Result Comment: FANG GEMENT OF PATIENT CARE PER NURSING PROTOCOL Performed By: #### L 501.080 ####[facility] [address] [place], [address] FINGERSTICK GLU 153 mg/dL High [address] [place] [address] Comment on above: Result Comment: FANG GEMENT OF PATIENT CARE PER NURSING PROTOCOL Performed By: #### L 501.080 ####[facility] [address] [place], [address] FINGERSTICK GLU 250 mg/dL [address] Comment on above: Result Comment: FANG GEMENT OF PATIENT CARE PER NURSING PROTOCOL Performed By: #### L 501.080 ####[facility] [address] [place], [address] Bedside Glucoseon 04-23-2024 FINGERSTICK GLU 311 mg/dL High [address] [place] [address] Comment on above: Result Comment: FANG GEMENT OF PATIENT CARE PER NURSING PROTOCOL Performed By: #### L 501.080 ####[facility] [address] [place], [address] FINGERSTICK GLU 252 mg/dL High [address] [place] [address] Comment on above: Result Comment: FANG GEMENT OF PATIENT CARE PER NURSING PROTOCOL Performed By: #### L 501.080 ####[facility] [address] [place], [address] FINGERSTICK GLU 173 mg/dL High 74-106 [facility] Comment on above: Result Comment: FANG GEMENT OF PATIENT CARE PER NURSING PROTOCOL Performed By: #### L 501.080 ####[facility] [address] [place], [address] CNPTOUTREACHon 04-23-2024 CNPTOUTREACH Normal [facility] Basic Metabolic Profile (BMP )on 04-22-2024 BUN/CRE 13.8 RATIO Normal 10-20 [facility] Comment on above: Performed By: #### L 100.0100, L500.2500 ####[facility] [address] [place], [address] CA,Total 8.5 mg/dL Normal 8.5-10.1 [facility] Comment on above: Performed By: #### L 100.0100, L500.2500 ####[facility] [address] [place], [address] Chloride [Moles/Vol] 100 mmol/L Normal 98-107 [facility] Comment on above: Performed By: #### L 100.0100, L500.2500 ####[facility] [address] [place], [address] CO2 [Moles/Vol] 25.0 mmol/L Normal 21.0-32.0 [facility] Comment on above: Performed By: #### L 100.0100, L500.2500 ####[facility] [address] [place], [address] Creatinine [Mass/Vol] 4.80 mg/dL High 0.70-1.30 [facility] Comment on above: Result Comment: The validity of the calculated GFR GFRAA in patients over70 years has not been determined. Clinical correlation isessential. Performed By: #### L 100.0100, L500.2500 ####[facility] [address] [place], [address] ECRCL 12.57 ml/min Normal [facility] Comment on above: Performed By: #### L 100.0100, L500.2500 ####[facility] [address] [place], [address] EST GFR - AA 15 mL/min Low >60 [facility] Comment on above: Result Comment: Afri can Trinidadian GFR Calc Performed By: #### L 100.0100, L500.2500 ####[facility] [address] [place], [address] GAP 10 Normal 5-15 [facility] Comment on above: Performed By: #### L 100.0100, L500.2500 ####[facility] [address] [place], [address] GFR/1.73 sq M.predicted among non-blacks MDRD (S/P/Bld) [Vol rate/Area] 12 mL/min/{1.73_m2} Low >60 [facility] Comment on above: Result Comment: Non- GFR Calc Performed By: #### L 100.0100, L500.2500 ####[facility] [address] [place], [address] Glucose [Mass/Vol] 66 mg/dL Low 74-106 [facility] Comment on above: Performed By: #### L 100.0100, L500.2500 ####[facility] [address] [place], [address] Potassium [Moles/Vol] 4.1 mmol/L Normal 3.5-5.1 [facility] Comment on above: Performed By: #### L 100.0100, L500.2500 ####[facility] [address] [place], [address] Sodium [Moles/Vol] 135 mmol/L Low 136-145 [facility] Comment on above: Performed By: #### L 100.0100, L500.2500 ####[facility] [address] [place], [address] Urea nitrogen [Mass/Vol] 66 mg/dL High 7-18 [facility] Comment on above: Performed By: #### L 100.0100, L500.2500 ####[facility] [address] [place], [address] Bedside Glucoseon 04-22-2024 FINGERSTICK GLU 290 mg/dL High 74-106 [facility] Comment on above: Result Comment: FANG GEMENT OF PATIENT CARE PER NURSING PROTOCOL Performed By: #### L 501.080 ####[facility] [address] [place], [address] FINGERSTICK GLU 220 mg/dL High 74-106 [facility] Comment on above: Result Comment: FANG GEMENT OF PATIENT CARE PER NURSING PROTOCOL Performed By: #### L 501.080 ####[facility] [address] [place], [address] FINGERSTICK GLU 191 mg/dL High 74-106 [facility] Comment on above: Result Comment: FANG GEMENT OF PATIENT CARE PER NURSING PROTOCOL Performed By: #### L 501.080 ####[facility] [address] [place], [address] FINGERSTICK GLU 54 mg/dL Low 74-106 [facility] Comment on above: Result Comment: FANG GEMENT OF PATIENT CARE PER NURSING PROTOCOL Performed By: #### L 501.080 ####[facility] [address] [place], [address] FINGERSTICK GLU 72 mg/dL Low 74-106 [facility] Comment on above: Result Comment: FANG GEMENT OF PATIENT CARE PER NURSING PROTOCOL Performed By: #### L 501.080 ####[facility] [address] [place], [address] CBC W/Diff, Automatedon 12-0 -2023 Absolute Lymph 2.51 X10 3/uL Normal 0.83-4.51 [facility] Comment on above: Performed By: #### L 100.0100, L500.2500 ####[facility] [address] [place], [address] Absolute Neut 11.4 X10 3/uL High 2.0-7.7 [facility] Comment on above: Performed By: #### L 100.0100, L500.2500 ####[facility] [address] [place], [address] Basophils/100 WBC (Bld) 0.5 % Normal 0-1 [facility] Comment on above: Performed By: #### L 100.0100, L500.2500 ####[facility] [address] [place], [address] Eosinophils/100 WBC (Bld) 2.2 % Normal 0-5 [facility] Comment on above: Performed By: #### L 100.0100, L500.2500 ####[facility] [address] [place], [address] Erythrocyte distribution width (RBC) [Ratio] 14.9 % High 11.6-14.6 [facility] Comment on above: Performed By: #### L 100.0100, L500.2500 ####[facility] [address] [place], [address] Hematocrit (Bld) [Volume fraction] 30.1 % Low 40-54 [facility] Comment on above: Performed By: #### L 100.0100, L500.2500 ####[facility] [address] [place], [address] Hemoglobin (Bld) [Mass/Vol] 9.4 g/dL Low 13.0-16.5 [facility] Comment on above: Performed By: #### L 100.0100, L500.2500 ####[facility] [address] [place], [address] IG% 1.700 High 0.0-0.9 [facility] Comment on above: Result Comment: IG% - Immature Granulocytes (promyelocytes, myelocytes andmetamyelocytes) > 1% indicates that a LEFT SHIFT is Present. Performed By: #### L 100.0100, L500.2500 ####[facility] [address] [place], [address] Lymphocytes/100 WBC (Bld) 15.8 % Low 19-41 [facility] Comment on above: Performed By: #### L 100.0100, L500.2500 ####[facility] [address] [place], [address] MCH (RBC) [Entitic mass] 30.1 pg Normal 27.0-32.0 [facility] Comment on above: Performed By: #### L 100.0100, L500.2500 ####[facility] [address] [place], [address] MCHC (RBC) [Mass/Vol] 31.2 g/dL Low 32-36 [facility] Comment on above: Performed By: #### L 100.0100, L500.2500 ####[facility] [address] [place], [address] MCV (RBC) [Entitic vol] 96.5 fL High 80-94 [facility] Comment on above: Performed By: #### L 100.0100, L500.2500 ####[facility] [address] [place], [address] Monocytes/100 WBC (Bld) 8.5 % Normal 0-10 [facility] Comment on above: Performed By: #### L 100.0100, L500.2500 ####[facility] [address] [place], [address] Neutrophils/100 WBC (Bld) 71.3 % High 47-70 [facility] Comment on above: Performed By: #### L 100.0100, L500.2500 ####[facility] [address] [place], [address] Nucleated RBC (Bld) [#/Vol] 0 10*3/uL Normal 0-5 [facility] Comment on above: Performed By: #### L 100.0100, L500.2500 ####[facility] [address] [place], [address] Platelet mean volume (Bld) [Entitic vol] 11.2 fL Normal 6.2-12.0 [facility] Comment on above: Performed By: #### L 100.0100, L500.2500 ####[facility] [address] [place], [address] Platelets (Bld) [#/Vol] 303 10*3/uL Normal 150-450 [facility] Comment on above: Performed By: #### L 100.0100, L500.2500 ####[facility] [address] [place], [address] RBC (Bld) [#/Vol] 3.12 10*6/uL Low 4.6-6.2 [facility] Comment on above: Performed By: #### L 100.0100, L500.2500 ####[facility] [address] [place], [address] RDW SD 52.3 fl High 35.1-43.9 [facility] Comment on above: Performed By: #### L 100.0100, L500.2500 ####[facility] [address] [place], [address] WBC (Bld) [#/Vol] 15.9 10*3/uL High 4.4-11.0 [facility] Comment on above: Performed By: #### L 100.0100, L500.2500 ####[facility] [address] [place], [address] Wound Cultureon 04-22-2024 WC Normal [facility] Comment on above: Performed By: #### M 100.2000, M100.3000 ####[facility] [address] [place], [address] Basic Metabolic Profile (BMP )on 04-21-2024 BUN/CRE 14.8 RATIO Normal 10-20 [facility] Comment on above: Performed By: #### L 500.2500, L100.0100 ####[facility] [address] [place], [address] CA,Total 8.6 mg/dL Normal 8.5-10.1 [facility] Comment on above: Performed By: #### L 500.2500, L100.0100 ####[facility] [address] [place], [address] Chloride [Moles/Vol] 98 mmol/L Normal 98-107 [facility] Comment on above: Performed By: #### L 500.2500, L100.0100 ####[facility] [address] [place], [address] CO2 [Moles/Vol] 25.0 mmol/L Normal 21.0-32.0 [facility] Comment on above: Performed By: #### L 500.2500, L100.0100 ####[facility] [address] [place], [address] Creatinine [Mass/Vol] 6.13 mg/dL High 0.70-1.30 [facility] Comment on above: Result Comment: The validity of the calculated GFR GFRAA in patients over70 years has not been determined. Clinical correlation isessential. Performed By: #### L 500.2500, L100.0100 ####[facility] [address] [place], [address] ECRCL 10.02 ml/min Normal [facility] Comment on above: Performed By: #### L 500.2500, L100.0100 ####[facility] [address] [place], [address] EST GFR - AA 11 mL/min Low >60 [facility] Comment on above: Result Comment: Afri can [place] GFR Calc Performed By: #### L 500.2500, L100.0100 ####[facility] [id number] [place], [address] GAP 9 Normal 5-15 [facility] Comment on above: Performed By: #### L 500.2500, L100.0100 ####[facility] [address] [place], [address] GFR/1.73 sq M.predicted among non-blacks MDRD (S/P/Bld) [Vol rate/Area] 9 mL/min/{1.73_m2} Low >60 [facility] Comment on above: Result Comment: Non- GFR Calc Performed By: #### L 500.2500, L100.0100 ####[facility] [address] [place], [address] Glucose [Mass/Vol] 123 mg/dL High 74-106 [facility] Comment on above: Result Comment: Fast ing Glucose result from 100 to 125 mg/dLsuggests IMPAIRED HOMEOSTASIS per A.D.A. criteria. Performed By: #### L 500.2500, L100.0100 ####[facility] [address] [place], [address] Potassium [Moles/Vol] 4.4 mmol/L Normal 3.5-5.1 [facility] Comment on above: Performed By: #### L 500.2500, L100.0100 ####[facility] [address] [place], [address] Sodium [Moles/Vol] 132 mmol/L Low 136-145 [facility] Comment on above: Performed By: #### L 500.2500, L100.0100 ####[facility] [address] [place], [address] Urea nitrogen [Mass/Vol] 91 mg/dL High 7-18 [facility] Comment on above: Performed By: #### L 500.2500, L100.0100 ####[facility] [address] [place], [address] Bedside Glucoseon 04-21-2024 FINGERSTICK GLU 158 mg/dL High 74-106 [facility] Comment on above: Result Comment: FANG GEMENT OF PATIENT CARE PER NURSING PROTOCOL Performed By: #### L 501.080 ####[facility] [address] [place], [address] FINGERSTICK GLU 173 mg/dL High 74-106 [facility] Comment on above: Result Comment: FANG GEMENT OF PATIENT CARE PER NURSING PROTOCOL Performed By: #### L 501.080 ####[facility] [address] [place], [address] FINGERSTICK GLU 312 mg/dL High 74-106 [facility] Comment on above: Result Comment: FANG GEMENT OF PATIENT CARE PER NURSING PROTOCOL Performed By: #### L 501.080 ####[facility] [address] [place], [address] FINGERSTICK GLU 103 mg/dL Normal 74-106 [facility] Comment on above: Result Comment: FANG GEMENT OF PATIENT CARE PER NURSING PROTOCOL Performed By: #### L 501.080 ####[facility] [address] [place], [address] CBC W/Diff, Automatedon 11-3 0-2024 Absolute Lymph 2.21 X10 3/uL Normal 0.83-4.51 [facility] Comment on above: Performed By: #### L 500.2500, L100.0100 ####[facility] [address] [place], [address] Absolute Neut 10.9 X10 3/uL High 2.0-7.7 [facility] Comment on above: Performed By: #### L 500.2500, L100.0100 ####[facility] [address] [place], [address] Basophils/100 WBC (Bld) 0.3 % Normal 0-1 [facility] Comment on above: Performed By: #### L 500.2500, L100.0100 ####[facility] [address] [place], [address] Eosinophils/100 WBC (Bld) 2.1 % Normal 0-5 [facility] Comment on above: Performed By: #### L 500.2500, L100.0100 ####[facility] [address] [place], [address] Erythrocyte distribution width (RBC) [Ratio] 14.9 % High 11.6-14.6 [facility] Comment on above: Performed By: #### L 500.2500, L100.0100 ####[facility] [address] [place], [address] Hematocrit (Bld) [Volume fraction] 31.2 % Low 40-54 [facility] Comment on above: Performed By: #### L 500.2500, L100.0100 ####[facility] [address] [place], [address] Hemoglobin (Bld) [Mass/Vol] 9.4 g/dL Low 13.0-16.5 [facility] Comment on above: Performed By: #### L 500.2500, L100.0100 ####[facility] [address] [place], [address] IG% 1.700 High 0.0-0.9 [facility] Comment on above: Result Comment: IG% - Immature Granulocytes (promyelocytes, myelocytes andmetamyelocytes) > 1% indicates that a LEFT SHIFT is Present. Performed By: #### L 500.2500, L100.0100 ####[facility] [address] [place], [address] Lymphocytes/100 WBC (Bld) 14.7 % Low 19-41 [facility] Comment on above: Performed By: #### L 500.2500, L100.0100 ####[facility] [address] [place], [address] MCH (RBC) [Entitic mass] 29.1 pg Normal 27.0-32.0 [facility] Comment on above: Performed By: #### L 500.2500, L100.0100 ####[facility] [address] [place], [address] MCHC (RBC) [Mass/Vol] 30.1 g/dL Low 32-36 [facility] Comment on above: Performed By: #### L 500.2500, L100.0100 ####[facility] [address] [place], [address] MCV (RBC) [Entitic vol] 96.6 fL High 80-94 [facility] Comment on above: Performed By: #### L 500.2500, L100.0100 ####[facility] [address] [place], [address] Monocytes/100 WBC (Bld) 8.6 % Normal 0-10 [facility] Comment on above: Performed By: #### L 500.2500, L100.0100 ####[facility] [address] [place], [address] Neutrophils/100 WBC (Bld) 72.6 % High 47-70 [facility] Comment on above: Performed By: #### L 500.2500, L100.0100 ####[facility] [address] [place], [address] Nucleated RBC (Bld) [#/Vol] 0 10*3/uL Normal 0-5 [facility] Comment on above: Performed By: #### L 500.2500, L100.0100 ####[facility] [address] [place], [address] Platelet mean volume (Bld) [Entitic vol] 10.8 fL Normal 6.2-12.0 [facility] Comment on above: Performed By: #### L 500.2500, L100.0100 ####[facility] [address] [place], [address] Platelets (Bld) [#/Vol] 285 10*3/uL Normal 150-450 [facility] Comment on above: Performed By: #### L 500.2500, L100.0100 ####[facility] [address] [place], [address] RBC (Bld) [#/Vol] 3.23 10*6/uL Low 4.6-6.2 [facility] Comment on above: Performed By: #### L 500.2500, L100.0100 ####[facility] [address] [place], [address] RDW SD 51.8 fl High 35.1-43.9 [facility] Comment on above: Performed By: #### L 500.2500, L100.0100 ####[facility] [address] [place], [address] WBC (Bld) [#/Vol] 15.0 10*3/uL High 4.4-11.0 [facility] Comment on above: Performed By: #### L 500.2500, L100.0100 ####[facility] [address] [place], [address] Culture, Anaerobic Any Sourc reed 04-21-2024 CUAN Normal [facility] Comment on above: Performed By: #### M 100.4001, M100.2000, M100.3000 ####[facility] [address] [place], [address] Vancomycin, Random Levelon 1 06-21-2023 VANCO, RANDOM 15.6 ug/mL High 0.0-15.0 [facility] Comment on above: Result Comment: VANC OMYCIN STANDARD DRUG THERAPY: CRITICAL VALUE IS > 15.0 mg/LVANCOMYCIN HIGH INTENSITY THERAPY: CRITICAL VALUE IS > 20.0 mg/LPLEASE CONTACT PHARMACY SERVICES (#8569) FOR INTERPRETATIONOF RESULTS. THIS RESULT DOES NOT REPRESENT A PEAK OR TROUGHLEVEL FOR THIS DRUG. Performed By: #### L 501.8850 ####[facility] [address] [place], [address] Basic Metabolic Profile (BMP )on 04-20-2024 BUN/CRE 14.3 RATIO Normal 10-20 [facility] Comment on above: Performed By: #### L 500.2500, L100.0100 ####[facility] [address] [place], [address] CA,Total 8.6 mg/dL Normal 8.5-10.1 [facility] Comment on above: Performed By: #### L 500.2500, L100.0100 ####[facility] [address] [place], [address] Chloride [Moles/Vol] 98 mmol/L Normal 98-107 [facility] Comment on above: Performed By: #### L 500.2500, L100.0100 ####[facility] [address] [place], [address] CO2 [Moles/Vol] 23.0 mmol/L Normal 21.0-32.0 [facility] Comment on above: Performed By: #### L 500.2500, L100.0100 ####[facility] [address] [place], [address] Creatinine [Mass/Vol] 5.23 mg/dL High 0.70-1.30 [facility] Comment on above: Result Comment: The validity of the calculated GFR GFRAA in patients over70 years has not been determined. Clinical correlation isessential. Performed By: #### L 500.2500, L100.0100 ####[facility] [address] [place], [address] ECRCL 11.74 ml/min Normal [facility] Comment on above: Performed By: #### L 500.2500, L100.0100 ####[facility] [address] [place], [address] EST GFR - AA 14 mL/min Low >60 [facility] Comment on above: Result Comment: Afri can Trinidadian GFR Calc Performed By: #### L 500.2500, L100.0100 ####[facility] [address] [place], [address] GAP 10 Normal 5-15 [facility] Comment on above: Performed By: #### L 500.2500, L100.0100 ####[facility] [address] [place], [address] GFR/1.73 sq M.predicted among non-blacks MDRD (S/P/Bld) [Vol rate/Area] 11 mL/min/{1.73_m2} Low >60 [facility] Comment on above: Result Comment: Non- GFR Calc Performed By: #### L 500.2500, L100.0100 ####[facility] [address] [place], [address] Glucose [Mass/Vol] 264 mg/dL High 74-106 [facility] Comment on above: Result Comment: Gluc ose result greater than or equal to 200 mg/dLsuggests DIABETES MELLITUS per A.D.A. criteria. Performed By: #### L 500.2500, L100.0100 ####[facility] [address] [place], [address] Potassium [Moles/Vol] 4.4 mmol/L Normal 3.5-5.1 [facility] Comment on above: Performed By: #### L 500.2500, L100.0100 ####[facility] [address] [place], [address] Sodium [Moles/Vol] 131 mmol/L Low 136-145 [facility] Comment on above: Performed By: #### L 500.2500, L100.0100 ####[facility] [address] [place], [address] Urea nitrogen [Mass/Vol] 75 mg/dL High 7-18 [facility] Comment on above: Performed By: #### L 500.2500, L100.0100 ####[facility] [address] [place], [address] Bedside Glucoseon 04-20-2024 FINGERSTICK GLU 317 mg/dL High 74-106 [facility] Comment on above: Result Comment: FANG GEMENT OF PATIENT CARE PER NURSING PROTOCOL Performed By: #### L 501.080 ####[facility] [address] [place], [address] FINGERSTICK GLU 306 mg/dL High [address] [place] [address] Comment on above: Result Comment: FANG GEMENT OF PATIENT CARE PER NURSING PROTOCOL Performed By: #### L 501.080 ####[facility] [address] [place], [address] FINGERSTICK GLU 254 mg/dL High 74-106 [facility] Comment on above: Result Comment: FANG VAZQUEZ OF PATIENT CARE PER NURSING PROTOCOL Performed By: #### L 501.080 ####[facility] [address] [place], [address] CBC W/Diff, Automatedon 11-2 Absolute Lymph 1.78 X10 3/uL Normal 0.83-4.51 [facility] Comment on above: Performed By: #### L 500.2500, L100.0100 ####[facility] [address] [place], [address] Absolute Neut 10.4 X10 3/uL High 2.0-7.7 [facility] Comment on above: Performed By: #### L 500.2500, L100.0100 ####[facility] [address] [place], [address] Basophils/100 WBC (Bld) 0.4 % Normal 0-1 [facility] Comment on above: Performed By: #### L 500.2500, L100.0100 ####[facility] [address] [place], [address] Eosinophils/100 WBC (Bld) 2.2 % Normal 0-5 [facility] Comment on above: Performed By: #### L 500.2500, L100.0100 ####[facility] [address] [place], [address] Erythrocyte distribution width (RBC) [Ratio] 14.8 % High 11.6-14.6 [facility] Comment on above: Performed By: #### L 500.2500, L100.0100 ####[facility] [address] [place], [address] Hematocrit (Bld) [Volume fraction] 30.3 % Low 40-54 [facility] Comment on above: Performed By: #### L 500.2500, L100.0100 ####[facility] [address] [place], [address] Hemoglobin (Bld) [Mass/Vol] 9.6 g/dL Low 13.0-16.5 [facility] Comment on above: Performed By: #### L 500.2500, L100.0100 ####[facility] [address] [place], [address] IG% 1.400 High 0.0-0.9 [facility] Comment on above: Result Comment: IG% - Immature Granulocytes (promyelocytes, myelocytes andmetamyelocytes) > 1% indicates that a LEFT SHIFT is Present. Performed By: #### L 500.2500, L100.0100 ####[facility] [address] [place], [address] Lymphocytes/100 WBC (Bld) 12.8 % Low 19-41 [facility] Comment on above: Performed By: #### L 500.2500, L100.0100 ####[facility] [address] [place], [address] MCH (RBC) [Entitic mass] 30.3 pg Normal 27.0-32.0 [facility] Comment on above: Performed By: #### L 500.2500, L100.0100 ####[facility] [address] [place], [address] MCHC (RBC) [Mass/Vol] 31.7 g/dL Low 32-36 [facility] Comment on above: Performed By: #### L 500.2500, L100.0100 ####[facility] [address] [place], [address] MCV (RBC) [Entitic vol] 95.6 fL High 80-94 [facility] Comment on above: Performed By: #### L 500.2500, L100.0100 ####[facility] [address] [place], [address] Monocytes/100 WBC (Bld) 8.5 % Normal 0-10 [facility] Comment on above: Performed By: #### L 500.2500, L100.0100 ####[facility] [address] [place], [address] Neutrophils/100 WBC (Bld) 74.7 % High 47-70 [facility] Comment on above: Performed By: #### L 500.2500, L100.0100 ####[facility] [address] [place], [address] Nucleated RBC (Bld) [#/Vol] 0 10*3/uL Normal 0-5 [facility] Comment on above: Performed By: #### L 500.2500, L100.0100 ####[facility] [address] [place], [address] Platelet mean volume (Bld) [Entitic vol] 11.2 fL Normal 6.2-12.0 [facility] Comment on above: Performed By: #### L 500.2500, L100.0100 ####[facility] [address] [place], [address] Platelets (Bld) [#/Vol] 260 10*3/uL Normal 150-450 [facility] Comment on above: Performed By: #### L 500.2500, L100.0100 ####[facility] [address] [place], [address] RBC (Bld) [#/Vol] 3.17 10*6/uL Low 4.6-6.2 [facility] Comment on above: Performed By: #### L 500.2500, L100.0100 ####[facility] [address] [place], [address] RDW SD 51.7 fl High 35.1-43.9 [facility] Comment on above: Performed By: #### L 500.2500, L100.0100 ####[facility] [address] [place], [address] WBC (Bld) [#/Vol] 13.9 10*3/uL High 4.4-11.0 [facility] Comment on above: Performed By: #### L 500.2500, L100.0100 ####[facility] [address] [place], [address] Basic Metabolic Profile (BMP )on 04-19-2024 BUN/CRE 14.5 RATIO Normal 10-20 [facility] Comment on above: Performed By: #### L 500.2500, L100.0100 ####[facility] [address] [place], [address] CA,Total 8.4 mg/dL Low 8.5-10.1 [facility] Comment on above: Performed By: #### L 500.2500, L100.0100 ####[facility] [address] [place], [address] Chloride [Moles/Vol] 100 mmol/L Normal 98-107 [facility] Comment on above: Performed By: #### L 500.2500, L100.0100 ####[facility] [address] [place], [address] CO2 [Moles/Vol] 25.0 mmol/L Normal 21.0-32.0 [facility] Comment on above: Performed By: #### L 500.2500, L100.0100 ####[facility] [address] [place], [address] Creatinine [Mass/Vol] 4.13 mg/dL High 0.70-1.30 [facility] Comment on above: Result Comment: The validity of the calculated GFR GFRAA in patients over70 years has not been determined. Clinical correlation isessential. Performed By: #### L 500.2500, L100.0100 ####[facility] [address] [place], [address] ECRCL 14.76 ml/min Normal [facility] Comment on above: Performed By: #### L 500.2500, L100.0100 ####[facility] [address] [place], [address] EST GFR - AA 18 mL/min Low >60 [facility] Comment on above: Result Comment: Afri can Trinidadian GFR Calc Performed By: #### L 500.2500, L100.0100 ####[facility] [address] [place], [address] GAP 9 Normal 5-15 [facility] Comment on above: Performed By: #### L 500.2500, L100.0100 ####[facility] [address] [place], [address] GFR/1.73 sq M.predicted among non-blacks MDRD (S/P/Bld) [Vol rate/Area] 15 mL/min/{1.73_m2} Low >60 [facility] Comment on above: Result Comment: Non- GFR Calc Performed By: #### L 500.2500, L100.0100 ####[facility] [address] [place], [address] Glucose [Mass/Vol] 272 mg/dL High 74-106 [facility] Comment on above: Result Comment: Gluc ose result greater than or equal to 200 mg/dLsuggests DIABETES MELLITUS per A.D.A. criteria. Performed By: #### L 500.2500, L100.0100 ####[facility] [address] [place], [address] Potassium [Moles/Vol] 4.2 mmol/L Normal 3.5-5.1 [facility] Comment on above: Performed By: #### L 500.2500, L100.0100 ####[facility] [address] [place], [address] Sodium [Moles/Vol] 134 mmol/L Low 136-145 [facility] Comment on above: Performed By: #### L 500.2500, L100.0100 ####[facility] [address] [place], [address] Urea nitrogen [Mass/Vol] 60 mg/dL High 7-18 [facility] Comment on above: Performed By: #### L 500.2500, L100.0100 ####[facility] [address] [place], [address] Bedside Glucoseon 04-19-2024 FINGERSTICK GLU 261 mg/dL High 74-106 [facility] Comment on above: Result Comment: FANG GEMENT OF PATIENT CARE PER NURSING PROTOCOL Performed By: #### L 501.080 ####[facility] [address] [place], [address] FINGERSTICK GLU 292 mg/dL High 74-106 [facility] Comment on above: Result Comment: FANG GEMENT OF PATIENT CARE PER NURSING PROTOCOL Performed By: #### L 501.080 ####[facility] [address] [place], [address] FINGERSTICK GLU 298 mg/dL High 74-106 [facility] Comment on above: Result Comment: FANG GEMENT OF PATIENT CARE PER NURSING PROTOCOL Performed By: #### L 501.080 ####[facility] [address] [place], [address] FINGERSTICK GLU 247 mg/dL High 74-106 [facility] Comment on above: Result Comment: FANG GEMENT OF PATIENT CARE PER NURSING PROTOCOL Performed By: #### L 501.080 ####[facility] [address] [place], [address] CBC W/Diff, Automatedon - Absolute Lymph 1.63 X10 3/uL Normal 0.83-4.51 [facility] Comment on above: Performed By: #### L 500.2500, L100.0100 ####[facility] [address] [place], [address] Absolute Neut 11.4 X10 3/uL High 2.0-7.7 [facility] Comment on above: Performed By: #### L 500.2500, L100.0100 ####[facility] [address] [place], [address] Basophils/100 WBC (Bld) 0.3 % Normal 0-1 [facility] Comment on above: Performed By: #### L 500.2500, L100.0100 ####[facility] [address] [place], [address] Eosinophils/100 WBC (Bld) 1.1 % Normal 0-5 [facility] Comment on above: Performed By: #### L 500.2500, L100.0100 ####[facility] [address] [place], [address] Erythrocyte distribution width (RBC) [Ratio] 15.0 % High 11.6-14.6 [facility] Comment on above: Performed By: #### L 500.2500, L100.0100 ####[facility] [address] [place], [address] Hematocrit (Bld) [Volume fraction] 30.5 % Low 40-54 [facility] Comment on above: Performed By: #### L 500.2500, L100.0100 ####[facility] [address] [place], [address] Hemoglobin (Bld) [Mass/Vol] 9.4 g/dL Low 13.0-16.5 [facility] Comment on above: Performed By: #### L 500.2500, L100.0100 ####[facility] [address] [place], [address] IG% 0.900 Normal 0.0-0.9 [facility] Comment on above: Result Comment: IG% - Immature Granulocytes (promyelocytes, myelocytes andmetamyelocytes) > 1% indicates that a LEFT SHIFT is Present. Performed By: #### L 500.2500, L100.0100 ####[facility] [address] [place], [address] Lymphocytes/100 WBC (Bld) 11.1 % Low 19-41 [facility] Comment on above: Performed By: #### L 500.2500, L100.0100 ####[facility] [address] [place], [address] MCH (RBC) [Entitic mass] 29.8 pg Normal 27.0-32.0 [facility] Comment on above: Performed By: #### L 500.2500, L100.0100 ####[facility] [address] [place], [address] MCHC (RBC) [Mass/Vol] 30.8 g/dL Low 32-36 [facility] Comment on above: Performed By: #### L 500.2500, L100.0100 ####[facility] [address] [place], [address] MCV (RBC) [Entitic vol] 96.8 fL High 80-94 [facility] Comment on above: Performed By: #### L 500.2500, L100.0100 ####[facility] [address] [place], [address] Monocytes/100 WBC (Bld) 8.9 % Normal 0-10 [facility] Comment on above: Performed By: #### L 500.2500, L100.0100 ####[facility] [address] [place], [address] Neutrophils/100 WBC (Bld) 77.7 % High 47-70 [facility] Comment on above: Performed By: #### L 500.2500, L100.0100 ####[facility] [address] [place], [address] Nucleated RBC (Bld) [#/Vol] 0 10*3/uL Normal 0-5 [facility] Comment on above: Performed By: #### L 500.2500, L100.0100 ####[facility] [address] [place], [address] Platelet mean volume (Bld) [Entitic vol] 11.4 fL Normal 6.2-12.0 [facility] Comment on above: Performed By: #### L 500.2500, L100.0100 ####[facility] [address] [place], [address] Platelets (Bld) [#/Vol] 253 10*3/uL Normal 150-450 [facility] Comment on above: Performed By: #### L 500.2500, L100.0100 ####[facility] [address] [place], [address] RBC (Bld) [#/Vol] 3.15 10*6/uL Low 4.6-6.2 [facility] Comment on above: Performed By: #### L 500.2500, L100.0100 ####[facility] [address] [place], [address] RDW SD 52.9 fl High 35.1-43.9 [facility] Comment on above: Performed By: #### L 500.2500, L100.0100 ####[facility] [address] [place], [address] WBC (Bld) [#/Vol] 14.6 10*3/uL High 4.4-11.0 [facility] Comment on above: Performed By: #### L 500.2500, L100.0100 ####[facility] [address] [place], [address] Culture, Blood (WB)on 2023 CUB Blood cultures x2 fr om two different sites No growth in 5 days. Normal [facility] Comment on above: Performed By: #### M 200.1000 ####[facility] [address] [place], [address] ACT Activated Clotting Timeo n 04-18-2024 ACTk CLOT TIME 222 sec High 74-137 [facility] Comment on above: Performed By: #### L 9100.0100 ####[facility] [address] [place], [address] BUNon 04-18-2024 Urea nitrogen [Mass/Vol] 39 mg/dL High 7-18 [facility] Comment on above: Performed By: #### L 501.1105, L501.1000 ####[facility] [address] [place], [address] Basic Metabolic Profile (BMP )on 04-18-2024 BUN/CRE 16.6 RATIO Normal 10-20 [facility] Comment on above: Performed By: #### L 500.2500, L100.0100 ####[facility] [address] [place], [address] CA,Total 8.5 mg/dL Normal 8.5-10.1 [facility] Comment on above: Performed By: #### L 500.2500, L100.0100 ####[facility] [address] [place], [address] Chloride [Moles/Vol] 98 mmol/L Normal 98-107 [facility] Comment on above: Performed By: #### L 500.2500, L100.0100 ####[facility] [address] [place], [address] CO2 [Moles/Vol] 24.0 mmol/L Normal 21.0-32.0 [facility] Comment on above: Performed By: #### L 500.2500, L100.0100 ####[facility] [address] [place], [address] Creatinine [Mass/Vol] 5.00 mg/dL High 0.70-1.30 [facility] Comment on above: Result Comment: The validity of the calculated GFR GFRAA in patients over70 years has not been determined. Clinical correlation isessential. Performed By: #### L 500.2500, L100.0100 ####[facility] [address] [place], [address] ECRCL 12.43 ml/min Normal [facility] Comment on above: Performed By: #### L 500.2500, L100.0100 ####[facility] [address] [place], [address] EST GFR - AA 14 mL/min Low >60 [facility] Comment on above: Result Comment: Afri can Trinidadian GFR Calc Performed By: #### L 500.2500, L100.0100 ####[facility] [address] [place], [address] GAP 10 Normal 5-15 [facility] Comment on above: Performed By: #### L 500.2500, L100.0100 ####[facility] [address] [place], [address] GFR/1.73 sq M.predicted among non-blacks MDRD (S/P/Bld) [Vol rate/Area] 12 mL/min/{1.73_m2} Low >60 [facility] Comment on above: Result Comment: Non- GFR Calc Performed By: #### L 500.2500, L100.0100 ####[facility] [address] [place], [address] Glucose [Mass/Vol] 136 mg/dL High 74-106 [facility] Comment on above: Result Comment: Fast ing Glucose result greater than or equal to 126 mg/dLsuggests DIABETES MELLITUS per A.D.A. criteria. Performed By: #### L 500.2500, L100.0100 ####[facility] [address] [place], [address] Potassium [Moles/Vol] 4.1 mmol/L Normal 3.5-5.1 [facility] Comment on above: Performed By: #### L 500.2500, L100.0100 ####[facility] [address] [place], [address] Sodium [Moles/Vol] 132 mmol/L Low 136-145 [facility] Comment on above: Performed By: #### L 500.2500, L100.0100 ####[facility] [address] [place], [address] Urea nitrogen [Mass/Vol] 83 mg/dL High 7-18 [facility] Comment on above: Performed By: #### L 500.2500, L100.0100 ####[facility] [address] [place], [address] Bedside Glucoseon 04-18-2024 FINGERSTICK GLU 289 mg/dL High 74-106 [facility] Comment on above: Result Comment: FANG GEMENT OF PATIENT CARE PER NURSING PROTOCOL Performed By: #### L 501.080 ####[facility] [address] [place], [address] FINGERSTICK GLU 106 mg/dL Normal 74-106 [facility] Comment on above: Result Comment: FANG GEMENT OF PATIENT CARE PER NURSING PROTOCOL Performed By: #### L 501.080 ####[facility] [address] [place], [address] FINGERSTICK GLU 123 mg/dL High 74-106 [facility] Comment on above: Result Comment: FANG GEMENT OF PATIENT CARE PER NURSING PROTOCOL Performed By: #### L 501.080 ####[facility] [address] [place], [address] FINGERSTICK GLU 132 mg/dL High 74-106 [facility] Comment on above: Result Comment: FANG GEMENT OF PATIENT CARE PER NURSING PROTOCOL Performed By: #### L 501.080 ####[facility] [address] [place], [address] FINGERSTICK GLU 313 mg/dL High 74-106 [facility] Comment on above: Result Comment: FANG GEMENT OF PATIENT CARE PER NURSING PROTOCOL Performed By: #### L 501.080 ####[facility] [address] [place], [address] CBC W/Diff, Automatedon 11-2 -2023 Absolute Lymph 1.73 X10 3/uL Normal 0.83-4.51 [facility] Comment on above: Performed By: #### L 500.2500, L100.0100 ####[facility] [address] [place], [address] Absolute Neut 11.4 X10 3/uL High 2.0-7.7 [facility] Comment on above: Performed By: #### L 500.2500, L100.0100 ####[facility] [address] [place], [address] Basophils/100 WBC (Bld) 0.3 % Normal 0-1 [facility] Comment on above: Performed By: #### L 500.2500, L100.0100 ####[facility] [address] [place], [address] Eosinophils/100 WBC (Bld) 1.4 % Normal 0-5 [facility] Comment on above: Performed By: #### L 500.2500, L100.0100 ####[facility] [address] [place], [address] Erythrocyte distribution width (RBC) [Ratio] 14.8 % High 11.6-14.6 [facility] Comment on above: Performed By: #### L 500.2500, L100.0100 ####[facility] [address] [place], [address] Hematocrit (Bld) [Volume fraction] 30.8 % Low 40-54 [facility] Comment on above: Performed By: #### L 500.2500, L100.0100 ####[facility] [address] [place], [address] Hemoglobin (Bld) [Mass/Vol] 9.5 g/dL Low 13.0-16.5 [facility] Comment on above: Performed By: #### L 500.2500, L100.0100 ####[facility] [address] [place], [address] IG% 0.900 Normal 0.0-0.9 [facility] Comment on above: Result Comment: IG% - Immature Granulocytes (promyelocytes, myelocytes andmetamyelocytes) > 1% indicates that a LEFT SHIFT is Present. Performed By: #### L 500.2500, L100.0100 ####[facility] [address] [place], [address] Lymphocytes/100 WBC (Bld) 11.7 % Low 19-41 [facility] Comment on above: Performed By: #### L 500.2500, L100.0100 ####[facility] [address] [place], [address] MCH (RBC) [Entitic mass] 29.8 pg Normal 27.0-32.0 [facility] Comment on above: Performed By: #### L 500.2500, L100.0100 ####[facility] [address] [place], [address] MCHC (RBC) [Mass/Vol] 30.8 g/dL Low 32-36 [facility] Comment on above: Performed By: #### L 500.2500, L100.0100 ####[facility] [address] [place], [address] MCV (RBC) [Entitic vol] 96.6 fL High 80-94 [facility] Comment on above: Performed By: #### L 500.2500, L100.0100 ####[facility] [address] [place], [address] Monocytes/100 WBC (Bld) 8.4 % Normal 0-10 [facility] Comment on above: Performed By: #### L 500.2500, L100.0100 ####[facility] [address] [place], [address] Neutrophils/100 WBC (Bld) 77.3 % High 47-70 [facility] Comment on above: Performed By: #### L 500.2500, L100.0100 ####[facility] [address] [place], [address] Nucleated RBC (Bld) [#/Vol] 0 10*3/uL Normal 0-5 [facility] Comment on above: Performed By: #### L 500.2500, L100.0100 ####[facility] [address] [place], [address] Platelet mean volume (Bld) [Entitic vol] 11.7 fL Normal 6.2-12.0 [facility] Comment on above: Performed By: #### L 500.2500, L100.0100 ####[facility] [address] [place], [address] Platelets (Bld) [#/Vol] 250 10*3/uL Normal 150-450 [facility] Comment on above: Performed By: #### L 500.2500, L100.0100 ####[facility] [address] [place], [address] RBC (Bld) [#/Vol] 3.19 10*6/uL Low 4.6-6.2 [facility] Comment on above: Performed By: #### L 500.2500, L100.0100 ####[facility] [address] [place], [address] RDW SD 51.9 fl High 35.1-43.9 [facility] Comment on above: Performed By: #### L 500.2500, L100.0100 ####[facility] [address] [place], [address] WBC (Bld) [#/Vol] 14.7 10*3/uL High 4.4-11.0 [facility] Comment on above: Performed By: #### L 500.2500, L100.0100 ####[facility] [address] [place], [address] Operative Reporton 4 Operative Report Normal [facility] Serum Creatinine AND GFRon 1 06-18-2023 Creatinine [Mass/Vol] 2.45 mg/dL High 0.70-1.30 [facility] Comment on above: Result Comment: The validity of the calculated GFR GFRAA in patients over70 years has not been determined. Clinical correlation isessential. Performed By: #### L 501.1105, L501.1000 ####[facility] [address] [place], [address] ECRCL 24.91 ml/min Normal [facility] Comment on above: Performed By: #### L 501.1105, L501.1000 ####[facility] [address] [place], [address] EST GFR - AA 32 mL/min Low >60 [facility] Comment on above: Result Comment: Afri can Trinidadian GFR Calc Performed By: #### L 501.1105, L501.1000 ####[facility] [address] [place], [address] GFR/1.73 sq M.predicted among non-blacks MDRD (S/P/Bld) [Vol rate/Area] 27 mL/min/{1.73_m2} Low >60 [facility] Comment on above: Result Comment: Non- GFR Calc Performed By: #### L 501.1105, L501.1000 ####[facility] [address] [place], [address] Vancomycin, Random Levelon 1 06-18-2023 VANCO, RANDOM 16.5 ug/mL High 0.0-15.0 [facility] Comment on above: Order Comment: Comme nts: WITH AM LABS PLEASE, PRIOR TO HD Result Comment: VANC OMYCIN STANDARD DRUG THERAPY: CRITICAL VALUE IS > 15.0 mg/LVANCOMYCIN HIGH INTENSITY THERAPY: CRITICAL VALUE IS > 20.0 mg/LPLEASE CONTACT PHARMACY SERVICES (#2627) FOR INTERPRETATIONOF RESULTS. THIS RESULT DOES NOT REPRESENT A PEAK OR TROUGHLEVEL FOR THIS DRUG. Performed By: #### L 501.8850 ####[facility] [address] [place], [address] Basic Metabolic Profile (BMP )on 04-17-2024 BUN/CRE 14.9 RATIO Normal 10-20 [facility] Comment on above: Performed By: #### L 100.0100, L500.2500 ####[facility] [address] [place], [address] CA,Total 8.7 mg/dL Normal 8.5-10.1 [facility] Comment on above: Performed By: #### L 100.0100, L500.2500 ####[facility] [address] [place], [address] Chloride [Moles/Vol] 99 mmol/L Normal 98-107 [facility] Comment on above: Performed By: #### L 100.0100, L500.2500 ####[facility] [address] [place], [address] CO2 [Moles/Vol] 27.0 mmol/L Normal 21.0-32.0 [facility] Comment on above: Performed By: #### L 100.0100, L500.2500 ####[facility] [address] [place], [address] Creatinine [Mass/Vol] 3.88 mg/dL High 0.70-1.30 [facility] Comment on above: Result Comment: The validity of the calculated GFR GFRAA in patients over70 years has not been determined. Clinical correlation isessential. Performed By: #### L 100.0100, L500.2500 ####[facility] [address] [place], [address] ECRCL 15.55 ml/min Normal [facility] Comment on above: Performed By: #### L 100.0100, L500.2500 ####[facility] [address] [place], [address] EST GFR - AA 19 mL/min Low >60 [facility] Comment on above: Result Comment: Afri can Trinidadian GFR Calc Performed By: #### L 100.0100, L500.2500 ####[facility] [address] [place], [address] GAP 8 Normal 5-15 [facility] Comment on above: Performed By: #### L 100.0100, L500.2500 ####[facility] [address] [place], [address] GFR/1.73 sq M.predicted among non-blacks MDRD (S/P/Bld) [Vol rate/Area] 16 mL/min/{1.73_m2} Low >60 [facility] Comment on above: Result Comment: Non- GFR Calc Performed By: #### L 100.0100, L500.2500 ####[facility] [address] [place], [address] Glucose [Mass/Vol] 139 mg/dL High 74-106 [facility] Comment on above: Result Comment: Fast ing Glucose result greater than or equal to 126 mg/dLsuggests DIABETES MELLITUS per A.D.A. criteria. Performed By: #### L 100.0100, L500.2500 ####[facility] [address] [place], [address] Potassium [Moles/Vol] 4.0 mmol/L Normal 3.5-5.1 [facility] Comment on above: Performed By: #### L 100.0100, L500.2500 ####[facility] [address] [place], [address] Sodium [Moles/Vol] 133 mmol/L Low 136-145 [facility] Comment on above: Performed By: #### L 100.0100, L500.2500 ####[facility] [address] [place], [address] Urea nitrogen [Mass/Vol] 58 mg/dL High 7-18 [facility] Comment on above: Performed By: #### L 100.0100, L500.2500 ####[facility] [address] [place], [address] Bedside Glucoseon 04-17-2024 FINGERSTICK GLU 337 mg/dL High 74-106 [facility] Comment on above: Result Comment: FANG GEMENT OF PATIENT CARE PER NURSING PROTOCOL Performed By: #### L 501.080 ####[facility] [address] [place], [address] FINGERSTICK GLU 219 mg/dL High 74-106 [facility] Comment on above: Result Comment: FANG GEMENT OF PATIENT CARE PER NURSING PROTOCOL Performed By: #### L 501.080 ####[facility] [address] [place], [address] FINGERSTICK GLU 139 mg/dL High 74-106 [facility] Comment on above: Result Comment: FANG VAZQUEZ OF PATIENT CARE PER NURSING PROTOCOL Performed By: #### L 501.080 ####[facility] [address] [place], [address] CBC W/Diff, Automatedon 11-2 Absolute Lymph 2.01 X10 3/uL Normal 0.83-4.51 [facility] Comment on above: Performed By: #### L 100.0100, L500.2500 ####[facility] [address] [place], [address] Absolute Neut 11.4 X10 3/uL High 2.0-7.7 [facility] Comment on above: Performed By: #### L 100.0100, L500.2500 ####[facility] [address] [place], [address] Basophils/100 WBC (Bld) 0.2 % Normal 0-1 [facility] Comment on above: Performed By: #### L 100.0100, L500.2500 ####[facility] [address] [place], [address] Eosinophils/100 WBC (Bld) 0.9 % Normal 0-5 [facility] Comment on above: Performed By: #### L 100.0100, L500.2500 ####[facility] [address] [place], [address] Erythrocyte distribution width (RBC) [Ratio] 14.8 % High 11.6-14.6 [facility] Comment on above: Performed By: #### L 100.0100, L500.2500 ####[facility] [address] [place], [address] Hematocrit (Bld) [Volume fraction] 32.2 % Low 40-54 [facility] Comment on above: Performed By: #### L 100.0100, L500.2500 ####[facility] [address] [place], [address] Hemoglobin (Bld) [Mass/Vol] 9.7 g/dL Low 13.0-16.5 [facility] Comment on above: Performed By: #### L 100.0100, L500.2500 ####[facility] [address] [place], [address] IG% 0.500 Normal 0.0-0.9 [facility] Comment on above: Result Comment: IG% - Immature Granulocytes (promyelocytes, myelocytes andmetamyelocytes) > 1% indicates that a LEFT SHIFT is Present. Performed By: #### L 100.0100, L500.2500 ####[facility] [address] [place], [address] Lymphocytes/100 WBC (Bld) 13.4 % Low 19-41 [facility] Comment on above: Performed By: #### L 100.0100, L500.2500 ####[facility] [address] [place], [address] MCH (RBC) [Entitic mass] 29.6 pg Normal 27.0-32.0 [facility] Comment on above: Performed By: #### L 100.0100, L500.2500 ####[facility] [address] [place], [address] MCHC (RBC) [Mass/Vol] 30.1 g/dL Low 32-36 [facility] Comment on above: Performed By: #### L 100.0100, L500.2500 ####[facility] [address] [place], [address] MCV (RBC) [Entitic vol] 98.2 fL High 80-94 [facility] Comment on above: Performed By: #### L 100.0100, L500.2500 ####[facility] [address] [place], [address] Monocytes/100 WBC (Bld) 9.3 % Normal 0-10 [facility] Comment on above: Performed By: #### L 100.0100, L500.2500 ####[facility] [address] [place], [address] Neutrophils/100 WBC (Bld) 75.7 % High 47-70 [facility] Comment on above: Performed By: #### L 100.0100, L500.2500 ####[facility] [address] [place], [address] Nucleated RBC (Bld) [#/Vol] 0 10*3/uL Normal 0-5 [facility] Comment on above: Performed By: #### L 100.0100, L500.2500 ####[facility] [address] [place], [address] Platelet mean volume (Bld) [Entitic vol] 11.7 fL Normal 6.2-12.0 [facility] Comment on above: Performed By: #### L 100.0100, L500.2500 ####[facility] [address] [place], [address] Platelets (Bld) [#/Vol] 232 10*3/uL Normal 150-450 [facility] Comment on above: Performed By: #### L 100.0100, L500.2500 ####[facility] [address] [place], [address] RBC (Bld) [#/Vol] 3.28 10*6/uL Low 4.6-6.2 [facility] Comment on above: Performed By: #### L 100.0100, L500.2500 ####[facility] [address] [place], [address] RDW SD 53.6 fl High 35.1-43.9 [facility] Comment on above: Performed By: #### L 100.0100, L500.2500 ####[facility] [address] [place], [address] WBC (Bld) [#/Vol] 15.0 10*3/uL High 4.4-11.0 [facility] Comment on above: Performed By: #### L 100.0100, L500.2500 ####[facility] [address] [place], [address] 12 Lead EKGon 04-16-2024 12 Lead EKG Normal [facility] Basic Metabolic Profile (BMP )on 04-16-2024 BUN/CRE 12.0 RATIO Normal 10-20 [facility] Comment on above: Performed By: #### L 100.0100, L500.2500 ####[facility] [address] [place], [address] CA,Total 8.6 mg/dL Normal 8.5-10.1 [facility] Comment on above: Performed By: #### L 100.0100, L500.2500 ####[facility] [address] [place], [address] Chloride [Moles/Vol] 96 mmol/L Low 98-107 [facility] Comment on above: Performed By: #### L 100.0100, L500.2500 ####[facility] [address] [place], [address] CO2 [Moles/Vol] 28.0 mmol/L Normal 21.0-32.0 [facility] Comment on above: Performed By: #### L 100.0100, L500.2500 ####[facility] [address] [place], [address] Creatinine [Mass/Vol] 4.76 mg/dL High 0.70-1.30 [facility] Comment on above: Result Comment: The validity of the calculated GFR GFRAA in patients over70 years has not been determined. Clinical correlation isessential. Performed By: #### L 100.0100, L500.2500 ####[facility] [address] [place], [address] ECRCL 12.86 ml/min Normal [facility] Comment on above: Performed By: #### L 100.0100, L500.2500 ####[facility] [address] [place], [address] EST GFR - AA 15 mL/min Low >60 [facility] Comment on above: Result Comment: Afri can Trinidadian GFR Calc Performed By: #### L 100.0100, L500.2500 ####[facility] [address] [place], [address] GAP 9 Normal 5-15 [facility] Comment on above: Performed By: #### L 100.0100, L500.2500 ####[facility] [address] [place], [address] GFR/1.73 sq M.predicted among non-blacks MDRD (S/P/Bld) [Vol rate/Area] 12 mL/min/{1.73_m2} Low >60 [facility] Comment on above: Result Comment: Non- GFR Calc Performed By: #### L 100.0100, L500.2500 ####[facility] [address] [place], [address] Glucose [Mass/Vol] 148 mg/dL High 74-106 [facility] Comment on above: Result Comment: Fast ing Glucose result greater than or equal to 126 mg/dLsuggests DIABETES MELLITUS per A.D.A. criteria. Performed By: #### L 100.0100, L500.2500 ####[facility] [address] [place], [address] Potassium [Moles/Vol] 4.1 mmol/L Normal 3.5-5.1 [facility] Comment on above: Performed By: #### L 100.0100, L500.2500 ####[facility] [address] [place], [address] Sodium [Moles/Vol] 133 mmol/L Low 136-145 [facility] Comment on above: Performed By: #### L 100.0100, L500.2500 ####[facility] [address] [place], [address] Urea nitrogen [Mass/Vol] 57 mg/dL High 7-18 [facility] Comment on above: Performed By: #### L 100.0100, L500.2500 ####[facility] [address] [place], [address] Bedside Glucoseon 04-16-2024 FINGERSTICK GLU 273 mg/dL High 74-106 [facility] Comment on above: Result Comment: FANG GEMENT OF PATIENT CARE PER NURSING PROTOCOL Performed By: #### L 501.080 ####[facility] [address] [place], [address] FINGERSTICK GLU 266 mg/dL High 74-106 [facility] Comment on above: Result Comment: FANG GEMENT OF PATIENT CARE PER NURSING PROTOCOL Performed By: #### L 501.080 ####[facility] [address] [place], [address] FINGERSTICK GLU 142 mg/dL High 74-106 [facility] Comment on above: Result Comment: FANG GEMENT OF PATIENT CARE PER NURSING PROTOCOL Performed By: #### L 501.080 ####[facility] [address] [place], [address] CBC W/Diff, Automatedon - Absolute Lymph 1.44 X10 3/uL Normal 0.83-4.51 [facility] Comment on above: Performed By: #### L 100.0100, L500.2500 ####[facility] [address] [place], [address] Absolute Neut 10.4 X10 3/uL High 2.0-7.7 [facility] Comment on above: Performed By: #### L 100.0100, L500.2500 ####[facility] [address] [place], [address] Basophils/100 WBC (Bld) 0.2 % Normal 0-1 [facility] Comment on above: Performed By: #### L 100.0100, L500.2500 ####[facility] [address] [place], [address] Eosinophils/100 WBC (Bld) 0.5 % Normal 0-5 [facility] Comment on above: Performed By: #### L 100.0100, L500.2500 ####[facility] [address] [place], [address] Erythrocyte distribution width (RBC) [Ratio] 14.9 % High 11.6-14.6 [facility] Comment on above: Performed By: #### L 100.0100, L500.2500 ####[facility] [address] [place], [address] Hematocrit (Bld) [Volume fraction] 32.4 % Low 40-54 [facility] Comment on above: Performed By: #### L 100.0100, L500.2500 ####[facility] [address] [place], [address] Hemoglobin (Bld) [Mass/Vol] 10.0 g/dL Low 13.0-16.5 [facility] Comment on above: Performed By: #### L 100.0100, L500.2500 ####[facility] [address] [place], [address] IG% 0.400 Normal 0.0-0.9 [facility] Comment on above: Result Comment: IG% - Immature Granulocytes (promyelocytes, myelocytes andmetamyelocytes) > 1% indicates that a LEFT SHIFT is Present. Performed By: #### L 100.0100, L500.2500 ####[facility] [address] [place], [address] Lymphocytes/100 WBC (Bld) 10.9 % Low 19-41 [facility] Comment on above: Performed By: #### L 100.0100, L500.2500 ####[facility] [address] [place], [address] MCH (RBC) [Entitic mass] 29.9 pg Normal 27.0-32.0 [facility] Comment on above: Performed By: #### L 100.0100, L500.2500 ####[facility] [address] [place], [address] MCHC (RBC) [Mass/Vol] 30.9 g/dL Low 32-36 [facility] Comment on above: Performed By: #### L 100.0100, L500.2500 ####[facility] [address] [place], [address] MCV (RBC) [Entitic vol] 97.0 fL High 80-94 [facility] Comment on above: Performed By: #### L 100.0100, L500.2500 ####[facility] [address] [place], [address] Monocytes/100 WBC (Bld) 9.6 % Normal 0-10 [facility] Comment on above: Performed By: #### L 100.0100, L500.2500 ####[facility] [address] [place], [address] Neutrophils/100 WBC (Bld) 78.4 % High 47-70 [facility] Comment on above: Performed By: #### L 100.0100, L500.2500 ####[facility] [address] [place], [address] Nucleated RBC (Bld) [#/Vol] 0 10*3/uL Normal 0-5 [facility] [facility] Comment on above: Performed By: #### L 100.0100, L500.2500 ####[facility] [address] [place], [address] Platelet mean volume (Bld) [Entitic vol] 11.1 fL Normal 6.2-12.0 [facility] Comment on above: Performed By: #### L 100.0100, L500.2500 ####[facility] [address] [place], [address] Platelets (Bld) [#/Vol] 223 10*3/uL Normal 150-450 [facility] Comment on above: Performed By: #### L 100.0100, L500.2500 ####[facility] [address] [place], [address] RBC (Bld) [#/Vol] 3.34 10*6/uL Low 4.6-6.2 [facility] Comment on above: Performed By: #### L 100.0100, L500.2500 ####[facility] [address] [place], [address] RDW SD 52.6 fl High 35.1-43.9 [facility] Comment on above: Performed By: #### L 100.0100, L500.2500 ####[facility] [address] [place], [address] WBC (Bld) [#/Vol] 13.3 10*3/uL High 4.4-11.0 [facility] Comment on above: Performed By: #### L 100.0100, L500.2500 ####[facility] [address] [place], [address] Consultation - Infectious Dx on 04-16-2024 Consultation - Infectious Dx Normal [facility] Consultation - Nephrologyon 04-16-2024 Consultation - Nephrology Normal [facility] Consultation - Surgicalon Consultation - Surgical Normal [facility] Gram Stainon 04-16-2024 GS Gram Stain 2+ Gram positive cocci 2+ Red Blood Cells 2+ Gram variable yessy No Epithelial cells Normal [facility] Comment on above: Performed By: #### M 100.4001, M100.2000, M100.3000 ####[facility] [address] [place], [address] Hemoglobin A1con 04-16-2024 HbA1c (Bld) [Mass fraction] 9.0 % High 3.8-5.6 [facility] Comment on above: Result Comment: Norm al < 5.7 % Prediabetic 5.7 - 6.4 % Diabetic >or= 6.5 % Please note range changes. Performed By: #### L 501.9985 ####[facility] [address] [place], [address] Lower Ext/No Jt/w/oon 2023 Lower Ext/No Jt/w/o Normal [facility] Bedside Glucoseon 04-15-2024 FINGERSTICK GLU 262 mg/dL High 74-106 [facility] Comment on above: Result Comment: FANG GEMENT OF PATIENT CARE PER NURSING PROTOCOL Performed By: #### L 501.080 ####[facility] [address] [place], [address] FINGERSTICK GLU 188 mg/dL High 74-106 [facility] Comment on above: Result Comment: FANG GEMENT OF PATIENT CARE PER NURSING PROTOCOL Performed By: #### L 501.080 ####[facility] [address] [place], [address] FINGERSTICK GLU 114 mg/dL High 74-106 [facility] Comment on above: Result Comment: FANG GEMENT OF PATIENT CARE PER NURSING PROTOCOL Performed By: #### L 501.080 ####[facility] [address] [place], [address] FINGERSTICK GLU 117 mg/dL High 74-106 [facility] Comment on above: Result Comment: FANG VAZQUEZ OF PATIENT CARE PER NURSING PROTOCOL Performed By: #### L 501.080 ####[facility] [address] [place], [address] CBC W/Diff, Automatedon 11-2 Absolute Lymph 1.56 X10 3/uL Normal 0.83-4.51 [facility] Comment on above: Performed By: #### L 500.4050, L501.9520, L300.3900, L100.0100 ####[facility] [address] [place], [address] Absolute Neut 9.4 X10 3/uL High 2.0-7.7 [facility] Comment on above: Performed By: #### L 500.4050, L501.9520, L300.3900, L100.0100 ####[facility] [address] [place], [address] Basophils/100 WBC (Bld) 0.2 % Normal 0-1 [facility] Comment on above: Performed By: #### L 500.4050, L501.9520, L300.3900, L100.0100 ####[facility] [address] [place], [address] Eosinophils/100 WBC (Bld) 0.3 % Normal 0-5 [facility] Comment on above: Performed By: #### L 500.4050, L501.9520, L300.3900, L100.0100 ####[facility] [address] [place], [address] Erythrocyte distribution width (RBC) [Ratio] 15.0 % High 11.6-14.6 [facility] Comment on above: Performed By: #### L 500.4050, L501.9520, L300.3900, L100.0100 ####[facility] [address] [place], [address] Hematocrit (Bld) [Volume fraction] 31.9 % Low 40-54 [facility] Comment on above: Performed By: #### L 500.4050, L501.9520, L300.3900, L100.0100 ####[facility] [address] [place], [address] Hemoglobin (Bld) [Mass/Vol] 9.8 g/dL Low 13.0-16.5 [facility] Comment on above: Performed By: #### L 500.4050, L501.9520, L300.3900, L100.0100 ####[facility] [address] [place], [address] IG% 0.500 Normal 0.0-0.9 [facility] Comment on above: Result Comment: IG% - Immature Granulocytes (promyelocytes, myelocytes andmetamyelocytes) > 1% indicates that a LEFT SHIFT is Present. Performed By: #### L 500.4050, L501.9520, L300.3900, L100.0100 ####[facility] [address] [place], [address] Lymphocytes/100 WBC (Bld) 12.7 % Low 19-41 [facility] Comment on above: Performed By: #### L 500.4050, L501.9520, L300.3900, L100.0100 ####[facility] [address] [place], [address] MCH (RBC) [Entitic mass] 29.8 pg Normal 27.0-32.0 [facility] Comment on above: Performed By: #### L 500.4050, L501.9520, L300.3900, L100.0100 ####[facility] [address] [place], [address] MCHC (RBC) [Mass/Vol] 30.7 g/dL Low 32-36 [facility] Comment on above: Performed By: #### L 500.4050, L501.9520, L300.3900, L100.0100 ####[facility] [address] [place], [address] MCV (RBC) [Entitic vol] 97.0 fL High 80-94 [facility] Comment on above: Performed By: #### L 500.4050, L501.9520, L300.3900, L100.0100 ####[facility] [address] [place], [address] Monocytes/100 WBC (Bld) 9.6 % Normal 0-10 [facility] Comment on above: Performed By: #### L 500.4050, L501.9520, L300.3900, L100.0100 ####[facility] [address] [place], [address] Neutrophils/100 WBC (Bld) 76.7 % High 47-70 [facility] Comment on above: Performed By: #### L 500.4050, L501.9520, L300.3900, L100.0100 ####[facility] [address] [place], [address] Nucleated RBC (Bld) [#/Vol] 0 10*3/uL Normal 0-5 [facility] Comment on above: Performed By: #### L 500.4050, L501.9520, L300.3900, L100.0100 ####[facility] [address] [place], [address] Platelet mean volume (Bld) [Entitic vol] 11.1 fL Normal 6.2-12.0 [facility] Comment on above: Performed By: #### L 500.4050, L501.9520, L300.3900, L100.0100 ####[facility] [address] [place], [address] Platelets (Bld) [#/Vol] 238 10*3/uL Normal 150-450 [facility] Comment on above: Performed By: #### L 500.4050, L501.9520, L300.3900, L100.0100 ####[facility] [address] [place], [address] RBC (Bld) [#/Vol] 3.29 10*6/uL Low 4.6-6.2 [facility] Comment on above: Performed By: #### L 500.4050, L501.9520, L300.3900, L100.0100 ####[facility] [address] [place], [address] RDW SD 52.9 fl High 35.1-43.9 [facility] Comment on above: Performed By: #### L 500.4050, L501.9520, L300.3900, L100.0100 ####[facility] [address] [place], [address] WBC (Bld) [#/Vol] 12.2 10*3/uL High 4.4-11.0 [facility] Comment on above: Performed By: #### L 500.4050, L501.9520, L300.3900, L100.0100 ####[facility] [address] [place], [address] CRPon 04-15-2024 C-REACTIVE PROT 232.00 mg/L High 0.0-3.0 [facility] Comment on above: Order Comment: Comme nts: Add onto previous labs if possible Result Comment: C-Re active Protein (CRP) provides useful information for thediagnosis, therapy and monitoring of inflammatory processesand associated diseases. For the evaluation of Relative Riskfor Cardiovascular Disease, a High Sensitivity CRP (HSCRP)should be ordered. Performed By: #### L 501.6710, L101.9900 ####[facility] [address] [place], [address] Comprehensive Metabolic Prof ilon 04-15-2024 Albumin [Mass/Vol] 2.3 g/dL Low 3.2-5.0 [facility] Comment on above: Performed By: #### L 500.4050, L501.9520, L300.3900, L100.0100 ####[facility] [address] [place], [address] Albumin/Globulin [Mass ratio] 0.5 {ratio} Low 0.9-2.4 [facility] Comment on above: Performed By: #### L 500.4050, L501.9520, L300.3900, L100.0100 ####[facility] [address] [place], [address] ALK P 49 U/L Normal 45-117 [facility] Comment on above: Performed By: #### L 500.4050, L501.9520, L300.3900, L100.0100 ####[facility] [address] [place], [address] ALT [Catalytic activity/Vol] 13 U/L Low 16-61 [facility] Comment on above: Performed By: #### L 500.4050, L501.9520, L300.3900, L100.0100 ####[facility] [address] [place], [address] AST [Catalytic activity/Vol] 9 U/L Low 15-37 [facility] Comment on above: Performed By: #### L 500.4050, L501.9520, L300.3900, L100.0100 ####[facility] [address] [place], [address] Bilirubin [Mass/Vol] 0.50 mg/dL Normal 0.20-1.00 [facility] Comment on above: Result Comment: For patients on eltrombopag therapy, use of Dimension [place] TBIL is not recommended. Performed By: #### L 500.4050, L501.9520, L300.3900, L100.0100 ####[facility] [address] [place], [address] BUN/CRE 10.6 RATIO Normal 10-20 [facility] Comment on above: Performed By: #### L 500.4050, L501.9520, L300.3900, L100.0100 ####[facility] [address] [place], [address] CA,Total 8.4 mg/dL Low 8.5-10.1 [facility] Comment on above: Performed By: #### L 500.4050, L501.9520, L300.3900, L100.0100 ####[facility] [address] [place], [address] Chloride [Moles/Vol] 97 mmol/L Low 98-107 [facility] Comment on above: Performed By: #### L 500.4050, L501.9520, L300.3900, L100.0100 ####[facility] [address] [place], [address] CO2 [Moles/Vol] 28.0 mmol/L Normal 21.0-32.0 [facility] Comment on above: Performed By: #### L 500.4050, L501.9520, L300.3900, L100.0100 ####[facility] [address] [place], [address] Creatinine [Mass/Vol] 3.79 mg/dL High 0.70-1.30 [facility] Comment on above: Result Comment: The validity of the calculated GFR GFRAA in patients over70 years has not been determined. Clinical correlation isessential. Performed By: #### L 500.4050, L501.9520, L300.3900, L100.0100 ####[facility] [address] [place], [address] ECRCL 16.15 ml/min Normal [facility] Comment on above: Performed By: #### L 500.4050, L501.9520, L300.3900, L100.0100 ####[facility] [address] [place], [address] EST GFR - AA 20 mL/min Low >60 [facility] Comment on above: Result Comment: Afri can Trin[place] GFR Calc Performed By: #### L 500.4050, L501.9520, L300.3900, L100.0100 ####[facility] [address] [place], [address] GAP 10 Normal 5-15 [facility] Comment on above: Performed By: #### L 500.4050, L501.9520, L300.3900, L100.0100 ####[facility] [address] [place], [address] GFR/1.73 sq M.predicted among non-blacks MDRD (S/P/Bld) [Vol rate/Area] 16 mL/min/{1.73_m2} Low >60 [facility] Comment on above: Result Comment: Non- GFR Calc Performed By: #### L 500.4050, L501.9520, L300.3900, L100.0100 ####[facility] [address] [place], [address] Globulin (S) [Mass/Vol] 4.7 g/dL High 2.2-4.2 [facility] Comment on above: Performed By: #### L 500.4050, L501.9520, L300.3900, L100.0100 ####[facility] [address] [place], [address] Glucose [Mass/Vol] 124 mg/dL High 74-106 [facility] Comment on above: Result Comment: Fast ing Glucose result from 100 to 125 mg/dLsuggests IMPAIRED HOMEOSTASIS per A.D.A. criteria. Performed By: #### L 500.4050, L501.9520, L300.3900, L100.0100 ####[facility] [address] [place], [address] Potassium [Moles/Vol] 3.8 mmol/L Normal 3.5-5.1 [facility] Comment on above: Performed By: #### L 500.4050, L501.9520, L300.3900, L100.0100 ####[facility] [address] [place], [address] Sodium [Moles/Vol] 135 mmol/L Low 136-145 [facility] Comment on above: Performed By: #### L 500.4050, L501.9520, L300.3900, L100.0100 ####[facility] [address] [place], [address] T PROT 7.0 g/dL Normal 6.4-8.2 [facility] Comment on above: Performed By: #### L 500.4050, L501.9520, L300.3900, L100.0100 ####[facility] [address] [place], [address] Urea nitrogen [Mass/Vol] 40 mg/dL High 7-18 [facility] Comment on above: Performed By: #### L 500.4050, L501.9520, L300.3900, L100.0100 ####[facility] [address] [place], [address] Erythrocyte Sed Rateon 04-15 SED RATE 68 mm/hr High 0-20 [facility] Comment on above: Order Comment: Comme nts: Add onto previous labs if possible Performed By: #### L 501.6710, L101.9900 ####[facility] [address] [place], [address] Gram Stainon 04-15-2024 GS Positive Normal [facility] Comment on above: Performed By: #### M 100.2000, M100.3000 ####[facility] [address] [place], [address] M8200.1075on 04-15-2024 M8200.1075 Pending MRSA PCR MRSA NEGATIVE STAPH. AUREUS PCR STAPH. AUREUS NEGATIVE Normal [facility] Comment on above: Performed By: #### M 8200.1075 ####[facility] [address] [place], [address] Prothrombin Time w/INRon INR Coag (PPP) [Relative time] 1.4 {INR} Normal [facility] Comment on above: Performed By: #### L 500.4050, L501.9520, L300.3900, L100.0100 ####[facility] [address] [place], [address] PT Coag (PPP) [Time] 16.7 s High 11.7-14.9 [facility] Comment on above: Performed By: #### L 500.4050, L501.9520, L300.3900, L100.0100 ####[facility] [address] [place], [address] Thyroid Stim Hormone (TSH)on 04-15-2024 TSH 0.665 uIU/mL Normal 0.358-3.740 [facility] Comment on above: Performed By: #### L 500.4050, L501.9520, L300.3900, L100.0100 ####[facility] [address] [place], [address] Ankle Brachial Indexon 04-14 Ankle Brachial Index Normal [facility] Bedside Glucoseon 04-14-2024 FINGERSTICK GLU 310 mg/dL High 74-106 [facility] Comment on above: Result Comment: FANG GEMENT OF PATIENT CARE PER NURSING PROTOCOL Performed By: #### L 501.080 ####[facility] [address] [place], [address] FINGERSTICK GLU 190 mg/dL High 74-106 [facility] Comment on above: Result Comment: FANG GEMENT OF PATIENT CARE PER NURSING PROTOCOL Performed By: #### L 501.080 ####[facility] [address] [place], [address] CBC W/Diff, Automatedon 03-24 Absolute Lymph 1.36 X10 3/uL Normal 0.83-4.51 [facility] Comment on above: Performed By: #### L 503.6005, L500.4050, L100.0100 ####[facility] [address] [place], [address] Absolute Neut 11.3 X10 3/uL High 2.0-7.7 [facility] Comment on above: Performed By: #### L 503.6005, L500.4050, L100.0100 ####[facility] [address] [place], [address] Basophils/100 WBC (Bld) 0.3 % Normal 0-1 [facility] Comment on above: Performed By: #### L 503.6005, L500.4050, L100.0100 ####[facility] [address] [place], [address] Eosinophils/100 WBC (Bld) 0.3 % Normal 0-5 [facility] Comment on above: Performed By: #### L 503.6005, L500.4050, L100.0100 ####[facility] [address] [place], [address] Erythrocyte distribution width (RBC) [Ratio] 15.1 % High 11.6-14.6 [facility] Comment on above: Performed By: #### L 503.6005, L500.4050, L100.0100 ####[facility] [address] [place], [address] Hematocrit (Bld) [Volume fraction] 35.3 % Low 40-54 [facility] Comment on above: Performed By: #### L 503.6005, L500.4050, L100.0100 ####[facility] [address] [place], [address] Hemoglobin (Bld) [Mass/Vol] 11.3 g/dL Low 13.0-16.5 [facility] Comment on above: Performed By: #### L 503.6005, L500.4050, L100.0100 ####[facility] [address] [place], [address] IG% 0.600 Normal 0.0-0.9 [facility] Comment on above: Result Comment: IG% - Immature Granulocytes (promyelocytes, myelocytes andmetamyelocytes) > 1% indicates that a LEFT SHIFT is Present. Performed By: #### L 503.6005, L500.4050, L100.0100 ####[facility] [address] [place], [address] Lymphocytes/100 WBC (Bld) 9.7 % Low 19-41 [facility] Comment on above: Performed By: #### L 503.6005, L500.4050, L100.0100 ####[facility] [address] [place], [address] MCH (RBC) [Entitic mass] 30.5 pg Normal 27.0-32.0 [facility] Comment on above: Performed By: #### L 503.6005, L500.4050, L100.0100 ####[facility] [address] [place], [address] MCHC (RBC) [Mass/Vol] 32.0 g/dL Normal 32-36 [facility] Comment on above: Performed By: #### L 503.6005, L500.4050, L100.0100 ####[facility] [address] [place], [address] MCV (RBC) [Entitic vol] 95.1 fL High 80-94 [facility] Comment on above: Performed By: #### L 503.6005, L500.4050, L100.0100 ####[facility] [address] [place], [address] Monocytes/100 WBC (Bld) 8.6 % Normal 0-10 [facility] Comment on above: Performed By: #### L 503.6005, L500.4050, L100.0100 ####[facility] [address] [place], [address] Neutrophils/100 WBC (Bld) 80.5 % High 47-70 [facility] Comment on above: Performed By: #### L 503.6005, L500.4050, L100.0100 ####[facility] [address] [place], [address] Nucleated RBC (Bld) [#/Vol] 0 10*3/uL Normal 0-5 [facility] Comment on above: Performed By: #### L 503.6005, L500.4050, L100.0100 ####[facility] [address] [place], [address] Platelet mean volume (Bld) [Entitic vol] 10.8 fL Normal 6.2-12.0 [facility] Comment on above: Performed By: #### L 503.6005, L500.4050, L100.0100 ####[facility] [address] [place], [address] Platelets (Bld) [#/Vol] 255 10*3/uL Normal 150-450 [facility] Comment on above: Performed By: #### L 503.6005, L500.4050, L100.0100 ####[facility] [address] [place], [address] RBC (Bld) [#/Vol] 3.71 10*6/uL Low 4.6-6.2 [facility] Comment on above: Performed By: #### L 503.6005, L500.4050, L100.0100 ####[facility] [address] [place], [address] RDW SD 52.1 fl High 35.1-43.9 [facility] Comment on above: Performed By: #### L 503.6005, L500.4050, L100.0100 ####[facility] [address] [place], [address] WBC (Bld) [#/Vol] 14.0 10*3/uL High 4.4-11.0 [facility] Comment on above: Performed By: #### L 503.6005, L500.4050, L100.0100 ####[facility] [address] [place], [address] CNOVon 04-14-2024 CNOV Normal [facility] CRPon 04-14-2024 C-REACTIVE PROT 267.00 mg/L High 0.0-3.0 [facility] Comment on above: Result Comment: C-Re active Protein (CRP) provides useful information for thediagnosis, therapy and monitoring of inflammatory processesand associated diseases. For the evaluation of Relative Riskfor Cardiovascular Disease, a High Sensitivity CRP (HSCRP)should be ordered. Performed By: #### L 101.9900, L501.6710 ####[facility] [address] [place], [address] Comprehensive Metabolic Prof ilon 04-14-2024 Albumin [Mass/Vol] 2.7 g/dL Low 3.2-5.0 [facility] Comment on above: Performed By: #### L 503.6005, L500.4050, L100.0100 ####[facility] [address] [place], [address] Albumin/Globulin [Mass ratio] 0.5 {ratio} Low 0.9-2.4 [facility] Comment on above: Performed By: #### L 503.6005, L500.4050, L100.0100 ####[facility] [address] [place], [address] ALK P 62 U/L Normal 45-117 [facility] Comment on above: Performed By: #### L 503.6005, L500.4050, L100.0100 ####[facility] [address] [place], [address] ALT [Catalytic activity/Vol] 11 U/L Low 16-61 [facility] Comment on above: Performed By: #### L 503.6005, L500.4050, L100.0100 ####[facility] [address] [place], [address] AST [Catalytic activity/Vol] 15 U/L Normal 15-37 [facility] Comment on above: Performed By: #### L 503.6005, L500.4050, L100.0100 ####[facility] [address] [place], [address] Bilirubin [Mass/Vol] 0.50 mg/dL Normal 0.20-1.00 [facility] Comment on above: Result Comment: For patients on eltrombopag therapy, use of Dimension [place] TBIL is not recommended. Performed By: #### L 503.6005, L500.4050, L100.0100 ####[facility] [address] [place], [address] BUN/CRE 9.5 RATIO Low 10-20 [facility] Comment on above: Performed By: #### L 503.6005, L500.4050, L100.0100 ####[facility] [address] [place], [address] CA,Total 8.6 mg/dL Normal 8.5-10.1 [facility] Comment on above: Performed By: #### L 503.6005, L500.4050, L100.0100 ####[facility] [address] [place], [address] Chloride [Moles/Vol] 96 mmol/L Low 98-107 [facility] Comment on above: Performed By: #### L 503.6005, L500.4050, L100.0100 ####[facility] [address] [place], [address] CO2 [Moles/Vol] 32.0 mmol/L Normal 21.0-32.0 [facility] Comment on above: Performed By: #### L 503.6005, L500.4050, L100.0100 ####[facility] [address] [place], [address] Creatinine [Mass/Vol] 2.84 mg/dL High 0.70-1.30 [facility] Comment on above: Result Comment: The validity of the calculated GFR GFRAA in patients over70 years has not been determined. Clinical correlation isessential. Performed By: #### L 503.6005, L500.4050, L100.0100 ####[facility] [address] [place], [address] ECRCL 21.22 ml/min Normal [facility] Comment on above: Performed By: #### L 503.6005, L500.4050, L100.0100 ####[facility] [address] [place], [address] EST GFR - AA 27 mL/min Low >60 [facility] Comment on above: Result Comment: Afri can [place] GFR Calc Performed By: #### L 503.6005, L500.4050, L100.0100 ####[facility] [address] [place], [address] GAP 8 Normal 5-15 [facility] Comment on above: Performed By: #### L 503.6005, L500.4050, L100.0100 ####[facility] [address] [place], [address] GFR/1.73 sq M.predicted among non-blacks MDRD (S/P/Bld) [Vol rate/Area] 23 mL/min/{1.73_m2} Low >60 [facility] Comment on above: Result Comment: Non- GFR Calc Performed By: #### L 503.6005, L500.4050, L100.0100 ####[facility] [address] [place], [address] Globulin (S) [Mass/Vol] 5.3 g/dL High 2.2-4.2 [facility] Comment on above: Performed By: #### L 503.6005, L500.4050, L100.0100 ####[facility] [address] [place], [address] Glucose [Mass/Vol] 130 mg/dL High 74-106 [facility] Comment on above: Result Comment: Fast ing Glucose result greater than or equal to 126 mg/dLsuggests DIABETES MELLITUS per A.D.A. criteria. Performed By: #### L 503.6005, L500.4050, L100.0100 ####[facility] [address] [place] [place], [address] Potassium [Moles/Vol] 3.7 mmol/L Normal 3.5-5.1 [facility] Comment on above: Performed By: #### L 503.6005, L500.4050, L100.0100 ####[facility] [address] [place], [address] Sodium [Moles/Vol] 136 mmol/L Normal 136-145 [facility] Comment on above: Performed By: #### L 503.6005, L500.4050, L100.0100 ####[facility] [address] [place], [address] T PROT 8.0 g/dL Normal 6.4-8.2 [facility] Comment on above: Performed By: #### L 503.6005, L500.4050, L100.0100 ####[facility] [address] [place], [address] Urea nitrogen [Mass/Vol] 27 mg/dL High 7-18 [facility] Comment on above: Performed By: #### L 503.6005, L500.4050, L100.0100 ####[facility] [address] [place], [address] Emergency Department Summary on 04-14-2024 Emergency Department Summary Normal [facility] Erythrocyte Sed Rateon 04-14 SED RATE 87 mm/hr High 0-20 [facility] Comment on above: Performed By: #### L 101.9900, L501.6710 ####[facility] [address] [place], [address] Foot min 3 Viewson 4 Foot min 3 Views Normal [facility] H AND P Exam - Hospitaliston 04-14-2024 H&P Exam - Hospitalist Normal [facility] Lactic Acidon 04-14-2024 Lactate [Moles/Vol] 1.6 mmol/L Normal 0.4-1.9 [facility] Comment on above: Order Comment: Y Performed By: #### L 503.6005, L500.4050, L100.0100 ####[facility] [address] [place], [address] CNPNon 04-13-2024 CNPN Normal [facility] CNPNon 04-05-2024 CNPN Normal [facility] CNOVon 03-28-2024 CNOV Normal [facility] Comprehensive metabolic 2000 panelon 03-28-2024 Albumin [Mass/Vol] 3.2 g/dL Low 3.9-4.9 [facility] Comment on above: Order Comment: Speci men Type: BLOOD SPECIMENOrdering Facility: [facility] Address: [address] [place] [address] Performed By: #### 2 4323-8 ####[facility] LABCLIA [id number] [place] [address] [place] ALP [Catalytic activity/Vol] 65 U/L Normal 38-113 [facility] Comment on above: Order Comment: Speci men Type: BLOOD SPECIMENOrdering Facility: [facility] Address: [address] [place] [address] Performed By: #### 2 4323-8 ####[facility] LABCLIA [id number] [place] [address] [place] ALT [Catalytic activity/Vol] 10 U/L Normal 10-54 [facility] Comment on above: Order Comment: Speci men Type: BLOOD SPECIMENOrdering Facility: [facility] Address: [address] [place] [address] Performed By: #### 2 4323-8 ####[facility] LABCLIA [id number] [place] [address] [place] Anion gap [Moles/Vol] 12 mmol/L Normal 8-15 [facility] Comment on above: Order Comment: Speci men Type: BLOOD SPECIMENOrdering Facility: [facility] Address: [address] [place], [place] [address] Performed By: #### 2 4323-8 ####[facility] LABCLIA [id number] [place] [address] [place] AST [Catalytic activity/Vol] 12 U/L Low 14-40 [facility] Comment on above: Order Comment: Speci men Type: BLOOD SPECIMENOrdering Facility: [facility] Address: [address] [place] [address] Performed By: #### 2 4323-8 ####[facility] LABCLIA [id number] [place] [address] [place] Bilirubin [Mass/Vol] 0.2 mg/dL Normal 0.2-1.3 [facility] Comment on above: Order Comment: Speci men Type: BLOOD SPECIMENOrdering Facility: [facility] Address: [address] [place] [address] Performed By: #### 2 4323-8 ####[facility] LABCLIA [id number] [place] [address] [place] Calcium [Mass/Vol] 8.9 mg/dL Normal 8.5-10.2 [facility] Comment on above: Order Comment: Speci men Type: BLOOD SPECIMENOrdering Facility: [facility] Address: [address] [place] [address] Performed By: #### 2 4323-8 ####[facility] LABCLIA [id number] [place] [address] [place] Chloride [Moles/Vol] 93 mmol/L Low 98-107 [facility] Comment on above: Order Comment: Speci men Type: BLOOD SPECIMENOrdering Facility: [facility] Address: [address] [place] [address] Performed By: #### 2 4323-8 ####[facility] LABCLIA [id number] [place] [address] [place] CO2 [Moles/Vol] 28 mmol/L Normal 22-30 [facility] Comment on above: Order Comment: Speci men Type: BLOOD SPECIMENOrdering Facility: [facility] Address: [address] [place] [address] Performed By: #### 2 4323-8 ####[facility] LABCLIA [id number] [place] [address] [place] Creatinine [Mass/Vol] 4.23 mg/dL High 0.73-1.22 [facility] Comment on above: Order Comment: Speci men Type: BLOOD SPECIMENOrdering Facility: [facility] Address: [address] [place] [address] Performed By: #### 2 4323-8 ####[facility] LABCLIA [id number] [place] [address] [place] Creatinine and Glomerular filtration rate.predicted panel (S/P/Bld) 13 mL/min/1.73m??? Low >=60 [facility] Comment on above: Order Comment: Speci men Type: BLOOD SPECIMENOrdering Facility: [facility] Address: [address] [place] [address] Result Comment: Tessa mated Glomerular Filtration Rate [...] GFR. Performed By: #### 2 4323-8 ####[facility] LABCLIA [id number] [place] [address] [place] Glucose [Mass/Vol] 371 mg/dL High 74-99 [facility] Comment on above: Order Comment: Speci men Type: BLOOD SPECIMENOrdering Facility: [facility] Address: [address] [place] [address] Result Comment: The [place] Diabetes Association (ADA) provides guidance for cutoff values for fasting glucose and random glucose. The ADA defines fasting as no caloric intake for at least 8 hours. Fasting plasma glucose results between 100 to 125 mg/dL indicate increased risk for diabetes (prediabetes).Fasting plasma glucose results greater than or equal to 126 mg/dL meet the criteria for diagnosis of diabetes. In the absence of unequivocal hyperglycemia, results should be confirmed by repeat testing. In a patient with classic symptoms of hyperglycemia or hyperglycemic crisis, random plasma glucose results greater than or equal to 200 mg/dL meet the criteria for diagnosis of diabetes.Reference: Standards of Medical Care in Diabetes 2016, [place] Diabetes Association. Diabetes Care. 2016.39(Suppl 1). Performed By: #### 2 4323-8 ####[facility] LABCLIA [id number] [place] [address] [place] Potassium [Moles/Vol] 5.0 mmol/L Normal 3.7-5.1 [facility] Comment on above: Order Comment: Speci men Type: BLOOD SPECIMENOrdering Facility: [facility] Address: [address] [place] [address] Performed By: #### 2 4323-8 ####[facility] LABCLIA [id number] [place] [address] [place] Protein [Mass/Vol] 6.5 g/dL Normal 6.3-8.0 [facility] Comment on above: Order Comment: Speci men Type: BLOOD SPECIMENOrdering Facility: [facility] Address: [address] [place] [address] Performed By: #### 2 4323-8 ####[facility] LABCLIA [id number] [place] [address] [place] Sodium [Moles/Vol] 133 mmol/L Low 136-144 [facility] Comment on above: Order Comment: Speci men Type: BLOOD SPECIMENOrdering Facility: [facility] Address: [address] [place] [address] Performed By: #### 2 4323-8 ####[facility] LABCLIA [id number] [place] [address] [place] Urea nitrogen [Mass/Vol] 37 mg/dL High 9-24 [facility] Comment on above: Order Comment: Lesvia aleman Type: BLOOD SPECIMENOrdering Facility: [facility] Address: [address] [place] [address] Performed By: #### 2 4323-8 ####[facility] LABIA [id number] [place] [address] [place] HbA1c (Bld)on 03-28-2024 Average glucose Estimated from glycated hemoglobin (Bld) [Mass/Vol] 206 mg/dL Normal [facility] Comment on above: Order Comment: Lesvia aleman Type: BLOOD SPECIMENOrdering Facility: [facility] Address: [address] [place] [address] Result Comment: eAG: (Estimated average glucose) is a calculated value from HgbA1c and is labor service representative of the average blood glucose level in the last 2-3 month period. Performed By: #### 5 5454-3 ####[facility] LABIA [id number] [place] [address] [place] HbA1c (Bld) [Mass fraction] 8.8 % High 4.3-5.6 [facility] Comment on above: Order Comment: Lesvia aleman Type: BLOOD SPECIMENOrdering Facility: [facility] Address: [address] [place] [address] Result Comment: [place] Diabetes Association guidelines indicate that patients with HgbA1c in the range 5.7-6.4% are at increased risk for development of diabetes, and intervention by lifestyle modification may be beneficial. HgbA1c greater or equal to 6.5% is considered diagnostic of diabetes. Performed By: #### 5 5454-3 ####[facility] LABCLIA [id number] [place] [address] [place] CNOVon 01-06-2024 CNOV Normal [facility] KORon 09-08-2023 Potassium [Moles/Vol] 3.7 mmol/L Normal 3.5-5.0 [facility] ([place]) Comment on above: Performed By: #### K OR #### [facility] [address] [place] [address] LABORATORYOrdered By: Miguelina Ramirez on 09-08-2023 Blood Glucose Testing Reason Routine (09/08/23 2:30 PM) [facility] Work Phone: Glucose [Mass/Vol] 111 mg/dL Normal 82 - 115 mg/dL [facility] Work Phone: LABORATORYOrdered By: Nelli Gar on 09-08-2023 Potassium [Moles/Vol] 3.7 mmol/L Normal 3.5 - 5.0 mEq/L [facility] LABORATORYOrdered By: Kailey Sanchez on 09-08-2023 Glucose [Mass/Vol] 147 mg/dL High 82 - 115 mg/dL [facility] Work Phone: HEMOGLOBIN A1C (POC)on 12-06 HbA1c (Bld) [Mass fraction] 8.1 % Abnormal 4.2 - 5.6 % [facility] HEMOGLOBIN A1C (POC)on 09-06 HbA1c (Bld) [Mass fraction] 8.4 % Abnormal 4.2 - 5.6 % [facility] Comprehensive metabolic 2000 panelon 03-06-2022 Albumin [Mass/Vol] 3.9 g/dL 3.9 - 4.9 g/dL [facility] ALP [Catalytic activity/Vol] 56 U/L 38 - 113 U/L [facility] ALT [Catalytic activity/Vol] 17 U/L 10 - 54 U/L [facility] Anion gap [Moles/Vol] 13 mmol/L 9 - 18 mmol/L [facility] AST [Catalytic activity/Vol] 13 U/L Low 14 - 40 U/L [facility] Bilirubin [Mass/Vol] 0.4 mg/dL 0.2 - 1 .3 mg/dL [facility] Calcium [Mass/Vol] 9.1 mg/dL 8.5 - 10. 2 mg/dL [facility] Chloride [Moles/Vol] 95 mmol/L Low 97 - 10 5 mmol/L [facility] CO2 [Moles/Vol] 30 mmol/L 22 - 30 mmol/L [facility] Creatinine [Mass/Vol] 4.13 mg/dL High 0.73 - 1.22 mg/dL [facility] Estimated Glomerular Filtration Rate 14 mL/min/1.73m Low >=60 mL/min/1.73 m [facility] Glucose [Mass/Vol] 239 mg/dL High 74 - 99 mg/dL [facility] Potassium [Moles/Vol] 4.9 mmol/L 3.7 - 5.1 mmol/L [facility] Protein [Mass/Vol] 7.2 g/dL 6.3 - 8.0 g/dL [facility] Sodium [Moles/Vol] 138 mmol/L 136 - 144 mmol/L [facility] Urea nitrogen [Mass/Vol] 49 mg/dL High 9 - 24 mg/dL [facility] LIPID PANEL, NONFASTINGon Cholesterol [Mass/Vol] 146 mg/dL <200 mg/dL [facility] HDL Cholesterol, Nonfasting 46 mg/dL >39 mg/dL [facility] LDL Cholesterol, Nonfasting 89 mg/dL <100 mg/dL [facility] LDL/HDL Ratio, Nonfasting 1.93 mg/dL <2.54 mg/dL [facility] Non HDL Cholesterol, Nonfasting 100 mg/dL <130 mg/dL [facility] Total Chol/HDL Ratio, Nonfasting 3.17 mg/dL <5.10 mg/dL [facility] Triglycerides, Nonfasting 55 mg/dL <150 mg/dL [facility] VLDL Cholesterol, Nonfasting 11 mg/dL <30 mg/dL [facility] HbA1c (Bld)on 03-05-2022 Average glucose Estimated from glycated hemoglobin (Bld) [Mass/Vol] 209 mg/dL [facility] HbA1c (Bld) [Mass fraction] 8.9 % High 4.3 - 5.6 % [facility] Basophil percentageon 2021 Chloride [Moles/Vol] 103 mmol/L 98-107 [facility] Work Phone: Glucose [Mass/Vol] 263 mg/dL 74-106 [facility] Work Phone: Comment on above: Glucose result great er than or equal to 200 mg/dLsuggests DIABETES MELLITUS per A.D.A. criteria. Potassium [Moles/Vol] 4.3 mmol/L 3.5-5.1 [facility] Work Phone: Sodium [Moles/Vol] 138 mmol/L 136-145 [facility] Work Phone: [phone] WBC (Bld) [#/Vol] 8.1 10*3/uL 4.4-11.0 [facility] Work Phone: Blood erythrocytes count (nu mber/volume)on 11-06-2021 RBC (Bld) [#/Vol] 3.75 10*6/uL 4.6-6.2 [facility]: Blood hemoglobin measurement (mass/volume)on 11-06-2021 Hemoglobin (Bld) [Mass/Vol] 11.4 g/dL 13.0-16.5 [facility] Work Phone: Blood platelet mean volumeon 11-06-2021 Platelet mean volume (Bld) [Entitic vol] 11.2 fL 6.2-12.0 [facility] Work Phone: Determination of erythrocyte mean corpuscular volume (MCV)on 11-06-2021 MCV (RBC) [Entitic vol] 94.9 fL 80-94 [facility] Work Phone: [phone] Hematocrit Auto (Bld) [Volum e fraction]on 11-06-2021 Hematocrit (Bld) [Volume fraction] 35.6 % 40-54 [facility] Work Phone: Laboratory - Chemistry and C hemistry - challengeon 11-06-2021 CO2 [Moles/Vol] 30.0 mmol/L 21.0-32.0 [facility] Work Phone: Urea nitrogen/Creatinine [Mass ratio] 12.6 mg/mg 10-20 [facility] Work Phone: [phone] Laboratory - Hematology and Cell countson 11-06-2021 Erythrocyte distribution width (RBC) [Entitic vol] 43.0 fL 35.1-43.9 [facility] Work Phone: [phone] Erythrocyte distribution width (RBC) [Ratio] 12.4 % 11.6-14.6 [facility] Work Phone: [phone] MCH (RBC) [Entitic mass] 30.4 pg 27.0-32.0 [facility] Work Phone: [phone] MCHC Auto (RBC) [Mass/Vol]on 11-06-2021 MCHC (RBC) [Mass/Vol] 32.0 g/dL 32-36 [facility] Work Phone: No Panel Informationon 11-06 Estimated Creatinine Clearance Calc 12.37 ml/min [facility] Work Phone: [phone] Estimated GFR (MDRD) Amer 17 mL/min >60 [facility] Work Phone: [phone] Comment on above: GFR Calc Estimated GFR (MDRD) Non-Af Amer 14 mL/min >60 [facility] Work Phone: Comment on above: Non- GFR Calc Platelets bldon 11-06-2021 Platelets (Bld) [#/Vol] 160 10*3/uL 150-450 [facility] Work Phone: [phone] Serum or plasma calcium lilli urement (mass/volume)on 11-06-2021 Calcium [Mass/Vol] 9.0 mg/dL 8.5-10.1 [facility] Work Phone: [phone] Serum or plasma creatinine m easurement (mass/volume)on 11-06-2021 Creatinine [Mass/Vol] 4.30 mg/dL 0.70-1.30 [facility] Work Phone: Comment on above: The validity of the calculated GFR & GFRAA in patients over 70 years has not been determined. Clinical correlation is essential. Serum or plasma urea nitroge n measurement (mass/volume)on 11-06-2021 Urea nitrogen [Mass/Vol] 54 mg/dL 7-18 [facility] Work Phone: [phone] Thin prep Papanicolaou smear with manual screeningon 11-06-2021 Thin prep Papanicolaou smear with manual screening 5 5-15 [facility] Work Phone: XR Foot - bilateral AP and L ateral and obliqueon 03-04-2021 IMPRESSION: No acute bony finding. Plantar spurs Innovation Manager: NICHELLE Transcribe Date/Time: Mar 04 2021 12:13P Dictated by : FERNANDO JANE MD This examination was interpreted and the report reviewed and electronically signed by: FERNANDO JANE MD on Mar 04 2021 12:15PM [facility] DIVISION OF RADIOLOGY * * *Final Report* [...] these nonweightbearing views DIVISION OF RADIOLOGY [facility] * * *Final Report* [...] IMPRESSION: No acute bony finding. Plantar spurs Innovation Manager: PSCB Transcribe Date/Time: Mar 04 2021 12:13P Dictated by : FERNANDO JANE MD This examination was interpreted and the report reviewed and electronically signed by: FERNANDO JANE MD on Mar 04 2021 12:15PM EST [facility] Radiology [facility]narrative[facility] - bilateral AP and L ateral and obliqueOrdered By: Ccf Provider on 03-04-2021 [facility] Office Visiton 10-27-2016 Documentation of current medications (procedure) Done Invalid Interpretation Code [facility] Work Phone: [phone] Fall risk assessment No Invalid Interpretation Code [facility] Work Phone: [phone] Protein mass conc Done [facility] Work Phone: [phone] Replaced Document: Eileen Ramírez CG Observationson 10-27-2016 EKG QRS axis -23 deg [facility] Work Phone: [phone] electrocardiogram interpretation Possible atrial fibrillation - Nonspecific T-abnormality. ABNORMAL Invalid Interpretation Code [facility] Work Phone: [phone] GE use only - for [employer] import when terms are not otherwise specified 431 ms Invalid Interpretation Code [facility] Work Phone: [phone] Interpretation Possible atrial fibrillation - Nonspecific T-abnormality. ABNORMAL [facility] Work Phone: P [place] 1 deg [facility] Work Phone: P wave axis, electrocardiogram 1 deg Invalid Interpretation Code [facility] Work Phone: [phone] [place] Interval 0 ms [facility] Work Phone: [phone] [place] interval, electrocardiogram 0 ms Invalid Interpretation Code [facility] Work Phone: [phone] Pulse (Heart Rate) 69 /min Invalid Interpretation Code [facility] Work Phone: QRS axis, electrocardiogram -23 deg Invalid Interpretation Code [facility] Work Phone: QRS Duration 114 ms [facility] Work Phone: [phone] QRS duration, electrocardiogram 114 ms Invalid Interpretation Code [facility] Work Phone: QT Interval new path ms [facility] Work Phone: [phone] QT interval, electrocardiogram new path ms Invalid Interpretation Code [facility] Work Phone: [phone] QTc Liriano 431 ms [facility] Work Phone: [phone] T [place] 90 deg [facility] Work Phone: [phone] T wave axis, electrocardiogram 90 deg Invalid Interpretation Code [facility] Work Phone: [phone] Clinical Lists Update: Pre 10-26-2016 Tobacco smoking status NHIS Never smoker [facility] Work Phone: [phone] Tobacco use CPHS Never smoker Invalid Interpretation Code [facility] Work Phone: [phone] Clinical Lists Update: 10-14-2016 Anion gap 14 mmol/L Invalid Interpretation Code [facility] Work Phone: [phone] Anion gap [Moles/Vol] 14 mmol/L [facility] Work Phone: [phone] Calcium 9.8 mg/dL Invalid Interpretation Code [facility] Work Phone: [phone] Chloride 97 mmol/L Invalid Interpretation Code [facility] Work Phone: [phone] CO2 25 mmol/L Invalid Interpretation Code [facility] Work Phone: [phone] CO2 (BldV) [Partial pressure] 25 mmol/L [facility] Work Phone: [phone] Creatinine 1.69 mg/dL High [facility] Work Phone: [phone] Glucose 264 mg/dL High [facility] Work Phone: [phone] Glucose [Mass/Vol] 264 mg/dL High [facility] Work Phone: [phone] Potassium 4.5 mmol/L Invalid Interpretation Code [facility] Work Phone: [phone] Sodium 136 mmol/L Invalid Interpretation Code [facility] Work Phone: [phone] Thyroid stimulating hormone (TSH) 1.29 u[iU]/mL Invalid Interpretation Code [facility] Work Phone: [phone] Urea nitrogen 21 mg/dL Invalid Interpretation Code [facility] Work Phone: [phone] Clinical Lists Update: [facility] 08-27-2016 Cholesterol 216 mg/dL Invalid Interpretation Code [facility] Work Phone: [phone] HDL Cholesterol 46 mg/dL Invalid Interpretation Code [facility] Work Phone: [phone] LDL Cholesterol 129 mg/dL Invalid Interpretation Code [facility] Work Phone: [phone] Triglyceride 206 mg/dL Invalid Interpretation Code [facility] Work Phone: [phone] Vital Signs Date Time Vital Sign Value Performing Clinician Facility 11-27-2024 07:37-0400 SaO2% (BldA) [Mass fraction] 98 % LAUREN PODLOGERICK [facility] Comment on above: Order Comment: Specimen Type: ARTERIAL B LOOD SPECIMENOrdering Facility: [facility] Address: [address] [place] [address] Performed By: #### A LLBG ####[facility] LABCLIA [id number] [address] OF [facility] 11-26-2024 21:30-0400 SaO2% (BldA) [Mass fraction] 97 % LAUREN ARZOLA [facility] Comment on above: Order Comment: Specimen Type: ARTERIAL B LOOD SPECIMENOrdering Facility: [facility] Address: [address] [place] [address] Performed By: #### A LLBG ####[facility] LABCLIA [id number] [place] [id number] [facility] 11-26-2024 18:06-0400 SaO2% (BldA) [Mass fraction] 99 % LAUREN PODLOGERICK [facility] Comment on above: Order Comment: Specimen Type: ARTERIAL B LOOD SPECIMENOrdering Facility: [facility] Address: [address] [place] [address] Performed By: #### A LLBG ####[facility] LABCLIA [id number] [place] [id number] [place] [facility] 11-26-2024 13:47-0400 SaO2% (BldA) [Mass fraction] 97 % LAUREN PODLOGERICK [facility] Comment on above: Order Comment: Specimen Type: ARTERIAL B LOOD SPECIMENOrdering Facility: [facility] Address: [address] [place] [address] Performed By: #### A LLMG ####[facility] LABCLIA [id number] [address] [address] [place] [facility] 11-26-2024 07:36-0400 SaO2% (BldA) [Mass fraction] 99 % LAUREN PODLOGERICK [facility] Comment on above: Order Comment: Specimen Type: ARTERIAL B LOOD SPECIMENOrdering Facility: [facility] Address: [address] [place], [place] [address] Performed By: #### A LLBG ####[facility] LABIA [id number] [address] [address] [place] 11-26-2024 00:22-0400 SaO2% (BldA) [Mass fraction] 97 % LAUREN PODLOGERICK [facility] Comment on above: Order Comment: Specimen Type: ARTERIAL B LOOD SPECIMENOrdering Facility: [facility] Address: [address] [place], [place] [address] Performed By: #### A LLBG ####[facility] LABIA [id number] [address] [address] [place] 11-25-2024 20:35-0400 SaO2% (BldA) [Mass fraction] 98 % LAUREN PODLOGERICK [facility] Comment on above: Order Comment: Specimen Type: ARTERIAL B LOOD SPECIMENOrdering Facility: [facility] Address: [address] [place], [place] [id number] Performed By: #### A LLBG ####[facility] LABIA [id number] [address] [address] [place] 11-25-2024 15:08-0400 SaO2% (BldA) [Mass fraction] 97 % LAUREN PODLOGERICK [facility] Comment on above: Order Comment: Specimen Type: ARTERIAL B LOOD SPECIMENOrdering Facility: [facility] Address: [address] [place] [address] Performed By: #### A LLBG ####[facility] LABIA [id number] [address] [address] [place] [facility] 11-25-2024 11:07-0400 SaO2% (BldA) [Mass fraction] 99 % LAUREN PODLOGERICK [facility] Comment on above: Order Comment: Specimen Type: ARTERIAL B LOOD SPECIMENOrdering Facility: [facility] Address: [address] [place], [place] [id number] Performed By: #### A LLBG ####[facility] LABIA [id number] [address] [address] [place] 11-25-2024 08:20-0400 SaO2% (BldA) [Mass fraction] 97 % LAUREN PODLOGERICK [facility] Comment on above: Order Comment: Specimen Type: ARTERIAL B LOOD SPECIMENOrdering Facility: [facility] Address: [address] [place], [place] [id number] Performed By: #### A LLBG ####[facility] [id number] [address] [address] [place] 11-25-2024 00:43-0400 SaO2% (BldA) [Mass fraction] 92 % LAUREN PODLOGERICK [facility] Comment on above: Order Comment: Specimen Type: ARTERIAL B LOOD SPECIMENOrdering Facility: [facility] Address: [address] [place] [address] Performed By: #### A LLBG ####[facility] [id number] [address] [address] [place] 11-24-2024 16:34-0400 SaO2% (BldA) [Mass fraction] 94 % LAUREN PODLOGERICK [facility] Comment on above: Order Comment: Specimen Type: ARTERIAL B LOOD SPECIMENOrdering Facility: [facility] Address: [address] [place] [address] Performed By: #### A LLBG ####[facility] LABIA [id number] [address] [address] [place] [facility] 11-24-2024 08:23-0400 SaO2% (BldA) [Mass fraction] 96 % LAUREN PODLOGERICK [facility] Comment on above: Order Comment: Specimen Type: ARTERIAL B LOOD SPECIMENOrdering Facility: [facility] Address: [address] [place], [place] [address] Performed By: #### A LLBG ####[facility] [id number] [address] [address] [place] [facility] 11-24-2024 06:44-0400 SaO2% (BldA) [Mass fraction] 97 % LAUREN PODLOGERICK [facility] Comment on above: Order Comment: Specimen Type: ARTERIAL B LOOD SPECIMENOrdering Facility: [facility] Address: [address] [place] [address] Performed By: #### A LLBG ####[facility] [id number] [address] [address] [place] 11-24-2024 00:29-0400 SaO2% (BldA) [Mass fraction] 97 % LAUREN XIELOGERICK [facility] Comment on above: Order Comment: Specimen Type: ARTERIAL B LOOD SPECIMENOrdering Facility: [facility] Address: [address] [place], [place] [address] Performed By: #### A LLBG ####[facility] [id number] [address] [address] [place] 11-23-2024 19:51-0400 SaO2% (BldA) [Mass fraction] 96 % Dr. Nando Wiggins MD Work Phone: [facility] Comment on above: Order Comment: Specimen Type: ARTERIAL B LOOD SPECIMENOrdering Facility: [facility] Address: [address] [place], [place] [address] Performed By: #### A LLBG ####[facility] LABCLIA [id number] [place] [id number] [place] 11-23-2024 14:00-0400 Diastolic blood pressure 55 mm[Hg] Dr. Nando Wiggins MD Work Phone: [facility] 11-23-2024 14:00-0400 Heart rate 30 /min Dr. Nando Wiggins MD Work Phone: [facility] 11-23-2024 14:00-0400 Respiratory rate 18 /min Dr. Nando Wiggins MD Work Phone: [facility] 11-23-2024 14:00-0400 Systolic blood pressure 120 mm[Hg] Dr. Nando Wiggins MD Work Phone: [facility] 11-22-2024 21:07-0400 Body temperature 97.8 [degF] Dr. Nando Wiggins MD Work Phone: [facility] 11-22-2024 08:46-0400 Body height 170.[address] Nando Wiggins MD Work Phone: [facility] 11-22-2024 08:46-0400 Body mass index (BMI) [Ratio] 34.7 kg/m2 Dr. Nando Wiggins MD Work Phone: [facility] 11-22-2024 08:46-0400 Body weight 100.[address] Nando Wiggins MD Work Phone: [facility] 11-09-2024 03:00-0400 Diastolic blood pressure 52 mm[Hg] Dr. Nando Wiggins MD Work Phone: [facility] 11-09-2024 03:00-0400 Heart rate 52 /min Dr. Nando Wiggins MD Work Phone: [facility] 11-09-2024 03:00-0400 SaO2% (BldA) [Mass fraction] 96 % Dr. Nando Wiggins MD Work Phone: [facility] 11-09-2024 03:00-0400 Systolic blood pressure 126 mm[Hg] Dr. Nando Wiggins MD Work Phone: [facility] 11-08-2024 22:11-0400 Body temperature 97.6 [degF] Dr. Nando Wiggins MD Work Phone: [facility] 11-08-2024 22:11-0400 Respiratory rate 18 /min Dr. Nando Wiggins MD Work Phone: [facility] 11-08-2024 19:36-0400 Body height 170.[address] Nando Wiggins MD Work Phone: [facility] 11-08-2024 19:36-0400 Body mass index (BMI) [Ratio] 32.5 kg/m2 Dr. Nando Wiggins MD Work Phone: [facility] 11-08-2024 19:36-0400 Body weight 94.[address] Nando Wiggins MD Work Phone: [facility] 10-29-2024 06:52-0400 Body mass index (BMI) [Ratio] 32.5 kg/m2 Dr. Nando Wiggins MD Work Phone: [facility] 10-29-2024 06:52-0400 Body weight 94.[address] Nando Wiggins MD Work Phone: [facility] 10-29-2024 06:52-0400 Diastolic blood pressure 65 mm[Hg] Dr. Nando Wiggins MD Work Phone: [facility] 10-29-2024 06:52-0400 Heart rate 54 /min Dr. Nando Wiggins MD Work Phone: [facility] 10-29-2024 06:52-0400 Respiratory rate 18 /min Dr. Nando Wiggins MD Work Phone: [facility] 10-29-2024 06:52-0400 SaO2% (BldA) [Mass fraction] 92 % Dr. Nando Wiggins MD Work Phone: [facility] 10-29-2024 06:52-0400 Systolic blood pressure 129 mm[Hg] Dr. Nando Wiggins MD Work Phone: [facility] 10-17-2024 10:25-0400 Body temperature 98.6 [degF] Dr. Jean Yan MD Work Phone: [facility] 10-17-2024 10:25-0400 Diastolic blood pressure 72 mm[Hg] Dr. Jean Yan MD Work Phone: 0(874)635-483748 [place] [address] 10-17-2024 10:25-0400 Heart rate 56 /min Dr. Jean Yan MD Work Phone: 1(608)101-634348 [place] [address] 10-17-2024 10:25-0400 Respiratory rate 16 /min Dr. Jean Yan MD Work Phone: [facility] 10-17-2024 10:25-0400 SaO2% (BldA) [Mass fraction] 93 % Dr. Jean Yan MD Work Phone: [facility] 10-17-2024 10:25-0400 Systolic blood pressure 135 mm[Hg] Dr. Jean Yan MD Work Phone: [facility] 10-03-2024 09:08-0400 Body temperature 98 [degF] Dr. Jean Yan MD Work Phone: [facility] 10-03-2024 09:08-0400 Diastolic blood pressure 54 mm[Hg] Dr. Jean Yan MD Work Phone: [facility] 10-03-2024 09:08-0400 Heart rate 48 /min Dr. Jean Yan MD Work Phone: 7(728)089-754293 [place] [address] 10-03-2024 09:08-0400 Respiratory rate 14 /min Dr. Jean Yan MD Work Phone: 7(074)228-458293 [place] [address] 10-03-2024 09:08-0400 SaO2% (BldA) [Mass fraction] 94 % Dr. Jean Yan MD Work Phone: 0(727)730-986293 [place] [address] 10-03-2024 09:08-0400 Systolic blood pressure 132 mm[Hg] Dr. Jean Yan MD Work Phone: 8(986)032-356193 [place] [address] 09-24-2024 10:09-0400 Body mass index (BMI) [Ratio] 31.9 kg/m2 Dr. Jean Yan MD Work Phone: 9(132)184-996493 [place] [address] 09-24-2024 10:09-0400 Body temperature 96 [degF] Dr. Jean Yan MD Work Phone: 6(654)320-374293 [place] [address] 09-24-2024 10:09-0400 Diastolic blood pressure 40 mm[Hg] Dr. Jean Yan MD Work Phone: 8(046)757-998693 [place] [address] 09-24-2024 10:09-0400 Heart rate 44 /min Dr. Jean Yan MD Work Phone: 3(092)512-938693 [place] [address] 09-24-2024 10:09-0400 Respiratory rate 16 /min Dr. Jean Yan MD Work Phone: 8(037)733-732293 [place] [address] 09-24-2024 10:09-0400 Systolic blood pressure 121 mm[Hg] Dr. Jean Yan MD Work Phone: 4(609)828-564393 [place] [address] 09-20-2024 00:41-0400 Body weight 92.[address] Jean Yan MD Work Phone: 8(088)082-724193 [place] [address] 09-04-2024 12:16-0400 Body mass index (BMI) [Ratio] 29.9 kg/m2 Dr. Jean Yan MD Work Phone: 1(844)147-860593 [place] [address] 09-04-2024 12:16-0400 Body temperature 97.2 [degF] Dr. Jean Yan MD Work Phone: 2(884)394-429193 [place] [address] 09-04-2024 12:16-0400 Body weight 86.[address] Jean Yan MD Work Phone: 4(344)641-790993 [place] [address] 09-04-2024 12:16-0400 Diastolic blood pressure 59 mm[Hg] Dr. Jean Yan MD Work Phone: 8(541)086-529193 [place] [address] 09-04-2024 12:16-0400 Heart rate 53 /min Dr. Jean Yan MD Work Phone: 6(364)360-154593 [place] [address] 09-04-2024 12:16-0400 Respiratory rate 14 /min Dr. Jean Yan MD Work Phone: 5(005)758-165093 [place] [address] 09-04-2024 12:16-0400 SaO2% (BldA) [Mass fraction] 96 % Dr. Jean Yan MD Work Phone: 4(905)282-133193 [place] [address] 09-04-2024 12:16-0400 Systolic blood pressure 108 mm[Hg] Dr. Jean Yan MD Work Phone: 8(818)125-323093 [place] [address] 09-03-2024 14:19-0400 Body height 170.[address] Jean Yan MD Work Phone: 2(858)312-079293 [place] [address] 08-30-2024 21:37-0400 Inhaled oxygen flow rate 2 L/min Dr. Jean Yan MD Work Phone: 4(531)892-067393 [place] [address] 08-27-2024 08:54-0400 Body mass index (BMI) [Ratio] 31.9 kg/m2 Dr. Jean Yan MD Work Phone: 2(512)136-973893 [place] [address] 08-27-2024 08:54-0400 Diastolic blood pressure 61 mm[Hg] Dr. Jean Yan MD Work Phone: 6(349)470-126093 [place] [address] 08-27-2024 08:54-0400 Heart rate 66 /min Dr. Jean Yan MD Work Phone: 3(926)748-092148 [place] [address] 08-27-2024 08:54-0400 Respiratory rate 16 /min Dr. Jean Yan MD Work Phone: 4(157)619-880193 [place] [address] 08-27-2024 08:54-0400 Systolic blood pressure 100 mm[Hg] Dr. Jean Yan MD Work Phone: 7(130)290-051493 [place] [address] 08-21-2024 00:56-0400 Body temperature 97.4 [degF] Dr. Jean Yan MD Work Phone: 7(776)877-232693 [place] [address] 08-21-2024 00:56-0400 Body weight 92.[address] Jean Yan MD Work Phone: 0(400)404-680693 [place] [address] 08-20-2024 10:36-0400 Body mass index (BMI) [Ratio] 31.9 kg/m2 Dr. Jean Yan MD Work Phone: 0(083)225-542793 [place] [address] 08-20-2024 10:36-0400 Body temperature 97.4 [degF] Dr. Jean Yan MD Work Phone: 2(557)173-934493 [place] [address] 08-20-2024 10:36-0400 Diastolic blood pressure 39 mm[Hg] Dr. Jean Yan MD Work Phone: 7(306)446-694893 [place] [address] 08-20-2024 10:36-0400 Heart rate 42 /min Dr. Jean Yan MD Work Phone: 1(423)310-162093 [place] [address] 08-20-2024 10:36-0400 Respiratory rate 16 /min Dr. Jean Yan MD Work Phone: 3(466)128-868093 [place] [address] 08-20-2024 10:36-0400 Systolic blood pressure 123 mm[Hg] Dr. Jean Yan MD Work Phone: 4(519)821-936293 [place] [address] 08-01-2024 19:00-0400 Diastolic blood pressure 46 mm[Hg] Dr. Jean Yan MD Work Phone: 3(966)132-967193 [place] [address] 08-01-2024 19:00-0400 Heart rate 47 /min Dr. Jean Yan MD Work Phone: 3(651)836-766393 [place] [address] 08-01-2024 19:00-0400 Respiratory rate 18 /min Dr. Jean Yan MD Work Phone: 5(527)974-311093 [place] [address] 08-01-2024 19:00-0400 SaO2% (BldA) [Mass fraction] 98 % Dr. Jean Yan MD Work Phone: 2(472)987-546893 [place] [address] 08-01-2024 19:00-0400 Systolic blood pressure 113 mm[Hg] Dr. Jean Yan MD Work Phone: 8(779)697-993393 [place] [address] 08-01-2024 15:00-0400 Body temperature 98.1 [degF] Dr. Jean Yan MD Work Phone: 6(211)954-094993 [place] [address] 07-21-2024 02:32-0500 Body weight 92.[address] Jean Yan MD Work Phone: 8(646)854-318193 [place] [address] 07-20-2024 20:26-0500 Body temperature 98.1 [degF] Dr. Jean Yan MD Work Phone: 1(644)670-922893 [place] [address] 07-20-2024 20:26-0500 Diastolic blood pressure 47 mm[Hg] Dr. Jean Yan MD Work Phone: 2(466)672-984193 [place] [address] 07-20-2024 20:26-0500 Heart rate 56 /min Dr. Jean Yan MD Work Phone: 1(791)572-097593 [place] [address] 07-20-2024 20:26-0500 Respiratory rate 18 /min Dr. Jean Yan MD Work Phone: 0(764)088-917593 [place] [address] 07-20-2024 20:26-0500 SaO2% (BldA) [Mass fraction] 97 % Dr. Jean Yan MD Work Phone: 3(116)752-166893 [place] [address] 07-20-2024 20:26-0500 Systolic blood pressure 143 mm[Hg] Dr. Jean Yan MD Work Phone: 8(028)822-656593 [place] [address] 07-20-2024 05:46-0500 Body mass index (BMI) [Ratio] 31.8 kg/m2 Dr. Jaen Yan MD Work Phone: 8(204)256-061493 [place] [address] 07-20-2024 05:46-0500 Body weight 92.[address] Jean Yan MD Work Phone: 5(370)926-314393 [place] [address] 07-16-2024 15:18-0500 Inhaled oxygen flow rate 2 L/min Dr. Jean Yan MD Work Phone: 3(812)784-164993 [place] [address] 07-11-2024 10:27-0500 Body mass index (BMI) [Ratio] 31.9 kg/m2 Dr. Jean Yan MD Work Phone: 1(201)950-128093 [place] [address] 07-11-2024 10:27-0500 Body temperature 96.7 [degF] Dr. Jean Yan MD Work Phone: 5(406)627-820793 [place] [address] 07-11-2024 10:27-0500 Diastolic blood pressure 45 mm[Hg] Dr. Jean Yan MD Work Phone: 5(150)686-512893 [place] [address] 07-11-2024 10:27-0500 Heart rate 60 /min Dr. Jean Yan MD Work Phone: 7(529)891-938793 [place] [address] 07-11-2024 10:27-0500 Respiratory rate 18 /min Dr. Jean Yan MD Work Phone: 9(480)448-626793 [place] [address] 07-11-2024 10:27-0500 Systolic blood pressure 119 mm[Hg] Dr. Jean Yan MD Work Phone: 8(500)626-625393 [place] [address] 07-07-2024 22:04-0500 Body temperature 97.8 [degF] Dr. Jean Yan MD Work Phone: 6(396)466-997593 [place] [address] 07-07-2024 22:04-0500 Diastolic blood pressure 61 mm[Hg] Dr. Jean Yan MD Work Phone: 1(599)251-829693 [place] [address] 07-07-2024 22:04-0500 Heart rate 74 /min Dr. Jean Yan MD Work Phone: 4(465)187-000693 [place] [address] 07-07-2024 22:04-0500 Respiratory rate 19 /min Dr. Jean Yan MD Work Phone: 7(922)054-303193 [place] [address] 07-07-2024 22:04-0500 SaO2% (BldA) [Mass fraction] 94 % Dr. Jean Yan MD Work Phone: 9(828)692-005193 [place] [address] 07-07-2024 22:04-0500 Systolic blood pressure 119 mm[Hg] Dr. Jean Yan MD Work Phone: 4(927)341-326193 [place] [address] 07-07-2024 17:35-0500 Body mass index (BMI) [Ratio] 33.7 kg/m2 Dr. Jean Yan MD Work Phone: 5(503)862-075193 [place] [address] 07-07-2024 17:35-0500 Body weight 97.[address] Jean Yan MD Work Phone: 7(869)680-852893 [place] [address] 07-03-2024 17:24-0500 Body temperature 97.8 [degF] Dr. Jean Yan MD Work Phone: 1(293)454-214693 [place] [address] 07-03-2024 17:24-0500 Diastolic blood pressure 43 mm[Hg] Dr. Jean Yan MD Work Phone: 9(942)509-758393 [place] [address] 07-03-2024 17:24-0500 Heart rate 59 /min Dr. Jean Yan MD Work Phone: 5(122)056-708393 [place] [address] 07-03-2024 17:24-0500 Respiratory rate 16 /min Dr. Jean Yan MD Work Phone: 7(706)193-080893 [place] [address] 07-03-2024 17:24-0500 SaO2% (BldA) [Mass fraction] 98 % Dr. Jean Yan MD Work Phone: 2(454)157-767193 [place] [address] 07-03-2024 17:24-0500 Systolic blood pressure 109 mm[Hg] Dr. Jean Yan MD Work Phone: 6(327)774-456993 [place] [address] 07-03-2024 12:45-0500 Body mass index (BMI) [Ratio] 37.7 kg/m2 Dr. Jean Yan MD Work Phone: 0(216)821-000593 [place] [address] 07-03-2024 12:45-0500 Body weight 109.[address] Jean Yan MD Work Phone: 5(538)938-518093 [place] [address] 07-02-2024 20:15-0500 Body temperature 98 [degF] Dr. Jean Yan MD Work Phone: 9(204)432-462093 [place] [address] 07-02-2024 20:15-0500 Diastolic blood pressure 47 mm[Hg] Dr. Jean Yan MD Work Phone: 4(222)063-037193 [place] [address] 07-02-2024 20:15-0500 Heart rate 56 /min Dr. Jean Yan MD Work Phone: 1(805)642-387093 [place] [address] 07-02-2024 20:15-0500 Respiratory rate 18 /min Dr. Jean Yan MD Work Phone: 7(964)696-809793 [place] [address] 07-02-2024 20:15-0500 SaO2% (BldA) [Mass fraction] 97 % Dr. Jean Yan MD Work Phone: 8(268)191-276393 [place] [address] 07-02-2024 20:15-0500 Systolic blood pressure 115 mm[Hg] Dr. Jean Yan MD Work Phone: 0(826)670-477893 [place] [address] 07-02-2024 16:22-0500 Body mass index (BMI) [Ratio] 32.5 kg/m2 Dr. Jean Yan MD Work Phone: 5(138)744-482793 [place] [address] 07-02-2024 16:22-0500 Body weight 94.[address] Jean Yan MD Work Phone: 4(563)288-954393 [place] [address] 06-23-2024 02:27-0500 Body weight 92.[address] Jean Yan MD Work Phone: 9(850)417-782293 [place] [address] 06-20-2024 08:47-0500 Body temperature 97.5 [degF] Dr. Jean Yan MD Work Phone: 6(058)558-760993 [place] [address] 06-20-2024 08:47-0500 Body weight 96.[address] Jean Yan MD Work Phone: 8(559)079-418393 [place] [address] 06-20-2024 08:47-0500 Diastolic blood pressure 55 mm[Hg] Dr. Jean Yan MD Work Phone: 5(725)982-241693 [place] [address] 06-20-2024 08:47-0500 Heart rate 57 /min Dr. Jean Yan MD Work Phone: 0(555)079-832493 [place] [address] 06-20-2024 08:47-0500 Respiratory rate 14 /min Dr. Jean Yan MD Work Phone: 3(831)218-614393 [place] [address] 06-20-2024 08:47-0500 Systolic blood pressure 135 mm[Hg] Dr. Jean Yan MD Work Phone: 6(834)739-117693 [place] [address] 06-19-2024 11:43-0500 Body mass index (BMI) [Ratio] 31.9 kg/m2 Dr. Jean Yan MD Work Phone: 7(172)899-652893 [place] [address] 06-19-2024 11:43-0500 Respiratory rate 18 /min Dr. Jean Yan MD Work Phone: 0(178)869-408093 [place] [address] 06-12-2024 11:21-0500 Body temperature 96.7 [degF] Dr. Jean Yan MD Work Phone: 6(324)840-131293 [place] [address] 06-06-2024 10:00-0500 Body temperature 97 [degF] Dr. Jean Yan MD Work Phone: 5(399)291-461493 [place] [address] 06-06-2024 10:00-0500 Diastolic blood pressure 67 mm[Hg] Dr. Jean Yan MD Work Phone: 3(415)485-185393 [place] [address] 06-06-2024 10:00-0500 Heart rate 84 /min Dr. Jean Yan MD Work Phone: 5(747)311-818893 [place] [address] 06-06-2024 10:00-0500 Respiratory rate 16 /min Dr. Jean Yan MD Work Phone: 3(342)844-272748 [place] [address] 06-06-2024 10:00-0500 SaO2% (BldA) [Mass fraction] 95 % Dr. Jean Yan MD Work Phone: 6(846)089-913948 [place] [address] 06-06-2024 10:00-0500 Systolic blood pressure 101 mm[Hg] Dr. Jean Yan MD Work Phone: 6(319)386-620293 [place] [address] 06-06-2024 06:39-0500 Body mass index (BMI) [Ratio] 33.6 kg/m2 Dr. Jean Yan MD Work Phone: 9(469)140-565593 [place] [address] 06-06-2024 06:39-0500 Body weight 97.[address] Jean Yan MD Work Phone: 5(873)987-453493 [place] [address] 05-29-2024 10:49-0500 Diastolic blood pressure 31 mm[Hg] Dr. Jean Yan MD Work Phone: 1(564)988-205148 [place] [address] 05-29-2024 10:49-0500 Heart rate 58 /min Dr. Jean Yan MD Work Phone: 2(223)603-944893 [place] [address] 05-29-2024 10:49-0500 Systolic blood pressure 111 mm[Hg] Dr. Jean Yan MD Work Phone: [facility] 05-23-2024 00:51-0500 Body weight 92.[address] Jean Yan MD Work Phone: [facility] 04-14-2024 10:11-0500 Body temperature 99.1 [degF] Usman Moomaw CHAIR INSTALLER.[employer] SUPPORT PROFESSIONAL Work Phone: [facility] 04-14-2024 10:11-0500 Diastolic blood pressure 60 mm[Hg] Usman Moomaw CHAIR INSTALLER.DIRECT SUPPORT PROFESSIONAL Work Phone: [facility] 04-14-2024 10:11-0500 Heart rate 76 /min Usman Moomaw CHAIR INSTALLER.DIRECT SUPPORT PROFESSIONAL Work Phone: [facility] 04-14-2024 10:11-0500 Respiratory rate 16 /min Usman Moomaw CHAIR INSTALLER.DIRECT SUPPORT PROFESSIONAL Work Phone: [facility] 04-14-2024 10:11-0500 SaO2% (BldA) [Mass fraction] 94 % Usman Moomaw CHAIR INSTALLER.DIRECT SUPPORT PROFESSIONAL Work Phone: [facility] 04-14-2024 10:11-0500 Systolic blood pressure 124 mm[Hg] Usman Moomaw CHAIR INSTALLER.DIRECT SUPPORT PROFESSIONAL Work Phone: [facility] 03-28-2024 12:54-0500 Body mass index (BMI) [Ratio] 34.25 kg/m2 Lauren Podlogar CHAIR INSTALLER.DIRECT SUPPORT PROFESSIONAL Work Phone: [facility] 03-28-2024 12:54-0500 Body weight 99.2 kg Lauren Podlogar CHAIR INSTALLER.DIRECT SUPPORT PROFESSIONAL Work Phone: [facility] 03-28-2024 12:54-0500 Diastolic blood pressure 48 mm[Hg] Lauren Podlogar CHAIR INSTALLER.DIRECT SUPPORT PROFESSIONAL Work Phone: [facility] 03-28-2024 12:54-0500 Heart rate 47 /min Lauren Podlogar CHAIR INSTALLER.DIRECT SUPPORT PROFESSIONAL Work Phone: [facility] 03-28-2024 12:54-0500 Respiratory rate 18 /min Lauren Podlogar CHAIR INSTALLER.DIRECT SUPPORT PROFESSIONAL Work Phone: [facility] 03-28-2024 12:54-0500 SaO2% (BldA) [Mass fraction] 98 % Lauren Podlogar CHAIR INSTALLER.DIRECT SUPPORT PROFESSIONAL Work Phone: [facility] 03-28-2024 12:54-0500 Systolic blood pressure 118 mm[Hg] Lauren Podlogar CHAIR INSTALLER.DIRECT SUPPORT PROFESSIONAL Work Phone: [facility] 01-06-2024 09:36-0400 Body mass index (BMI) [Ratio] 33.01 kg/m2 Lauren Podlogar CHAIR INSTALLER.DIRECT SUPPORT PROFESSIONAL Work Phone: [facility] 01-06-2024 09:36-0400 Body weight 95.6 kg Lauren Podlogar CHAIR INSTALLER.DIRECT SUPPORT PROFESSIONAL Work Phone: [facility] 01-06-2024 09:36-0400 Diastolic blood pressure 58 mm[Hg] Lauren Podlogar CHAIR INSTALLER.DIRECT SUPPORT PROFESSIONAL Work Phone: [facility] 01-06-2024 09:36-0400 Heart rate 58 /min Lauren Podlogar CHAIR INSTALLER.DIRECT SUPPORT PROFESSIONAL Work Phone: [facility] 01-06-2024 09:36-0400 Respiratory rate 16 /min Lauren Podlogar CHAIR INSTALLER.DIRECT SUPPORT PROFESSIONAL Work Phone: [facility] 01-06-2024 09:36-0400 SaO2% (BldA) [Mass fraction] 97 % Lauren Podlogar CHAIR INSTALLER.DIRECT SUPPORT PROFESSIONAL Work Phone: [facility] 01-06-2024 09:36-0400 Systolic blood pressure 128 mm[Hg] Lauren Podlogar CHAIR INSTALLER.DIRECT SUPPORT PROFESSIONAL Work Phone: [facility] 09-08-2023 14:30-0400 Body temperature 96.62 [degF] JEAN PIERRE ARREAGA MD [facility] 09-08-2023 14:30-0400 Diastolic Blood Pressure Non-Invasive 50 mm[Hg] JEAN PIERRE ARREAGA MD [facility] 09-08-2023 14:30-0400 Heart rate 53 /min JEAN PIERRE ARREAGA MD [facility] 09-08-2023 14:30-0400 Respiratory rate 16 /min JEAN PIERRE ARREAGA MD [facility] 09-08-2023 14:30-0400 Systolic Blood Pressure Non-Invasive 140 mm[Hg] JEAN PIERRE ARREAGA MD [facility] 09-08-2023 14:13-0400 Body temperature 96.98 [degF] JEAN PIERRE [facility]REAG[facility] [facility] 09-08-2023 14:13-0400 Diastolic Blood Pressure Non-Invasive 49 mm[Hg] JEAN PIERRE ARREAGA MD [facility] 09-08-2023 14:13-0400 Heart rate 51 /min JEAN PIERRE ARREAGA MD [address] [place] [address] 09-08-2023 14:13-0400 Mean blood pressure 74 mm[Hg] JEAN PIERRE ARREAGA MD [address] [place] [address] 09-08-2023 14:13-0400 Respiratory rate 16 /min JEAN PIERRE ARREAGA MD [address] [place] [address] 09-08-2023 14:13-0400 Systolic Blood Pressure Non-Invasive 134 mm[Hg] JEAN PIERRE ARREAGA MD [address] [place] [address] 09-08-2023 13:58-0400 Diastolic Blood Pressure Non-Invasive 49 mm[Hg] JEAN PIERRE ARREAGA MD [address] [place] [address] 09-08-2023 13:58-0400 Heart rate 45 /min JEAN PIERRE ARREAGA MD [address] [place] [address] 09-08-2023 13:58-0400 Mean blood pressure 74 mm[Hg] JEAN PIERRE ARREAGA MD [address] [place] [address] 09-08-2023 13:58-0400 Respiratory rate 16 /min JEAN PIERRE ARREAGA MD [address] [place] [address] 09-08-2023 13:58-0400 Systolic Blood Pressure Non-Invasive 130 mm[Hg] JEAN PIERRE ARREAGA MD [address] [place] [address] 09-08-2023 13:43-0400 Body temperature 96.98 [degF] JEAN PIERRE ARREAGA MD [address] [place] [address] 09-08-2023 13:43-0400 Heart rate 44 /min JEAN PIERRE ARREAGA MD [address] [place] [address] 09-08-2023 13:43-0400 Mean blood pressure 73 mm[Hg] JEAN PIERRE ARREAGA MD [facility] 09-08-2023 13:35-0400 Body temperature 95.05 [degF] JEAN PIERRE ARREAGA MD [facility] 09-08-2023 13:35-0400 Respiratory Rate - Anes 23 br/min JEAN PIERRE ARREAGA MD [facility] 09-08-2023 13:30-0400 Body temperature 94.95 [degF] JEAN PIERRE ARREAGA MD [address] [place] [address] 09-08-2023 13:30-0400 Respiratory Rate - Anes 21 br/min JEAN PIERRE ARREAGA MD [address] [place] [address] 09-08-2023 13:25-0400 Body temperature 94.75 [degF] JEAN PIERRE ARREAGA MD [facility] 09-08-2023 13:25-0400 Respiratory Rate - Anes 11 br/min JEAN PIERRE ARREAGA MD [facility] 09-08-2023 11:18-0400 Body height 170.2 cm JEAN PIERRE ARREAGA MD [facility] 09-08-2023 11:18-0400 Body weight 98.7 kg JEAN PIERRE ARREAGA MD [facility] 09-08-2023 10:55-0400 Heart rate 56 /min JEAN PIERRE ARREAGA MD [facility] 12-06-2022 09:18-0400 Body weight 97.98 kg Lauren Arzola APRN.DIRECT SUPPORT PROFESSIONAL Work Phone: [facility] 12-06-2022 09:18-0400 Diastolic blood pressure 60 mm[Hg] Lauren Arzola CHAIR INSTALLER.DIRECT SUPPORT PROFESSIONAL Work Phone: [facility] 12-06-2022 09:18-0400 Heart rate 50 /min Lauren Podlogar CHAIR INSTALLER.DIRECT SUPPORT PROFESSIONAL Work Phone: [facility] 12-06-2022 09:18-0400 Respiratory rate 16 /min Lauren Podlogar CHAIR INSTALLER.DIRECT SUPPORT PROFESSIONAL Work Phone: [facility] 12-06-2022 09:18-0400 SaO2% (BldA) [Mass fraction] 96 % Lauren Podlogar CHAIR INSTALLER.DIRECT SUPPORT PROFESSIONAL Work Phone: [facility] 12-06-2022 09:18-0400 Systolic blood pressure 128 mm[Hg] Lauren Podlogar CHAIR INSTALLER.DIRECT SUPPORT PROFESSIONAL Work Phone: [facility] 09-06-2022 09:54-0400 Body weight 99.52 kg Lauren Podlogar CHAIR INSTALLER.DIRECT SUPPORT PROFESSIONAL Work Phone: [facility] 09-06-2022 09:54-0400 Diastolic blood pressure 62 mm[Hg] Lauren Podlogar CHAIR INSTALLER.DIRECT SUPPORT PROFESSIONAL Work Phone: [facility] 09-06-2022 09:54-0400 Heart rate 58 /min Lauren Podlogar CHAIR INSTALLER.DIRECT SUPPORT PROFESSIONAL Work Phone: [facility] 09-06-2022 09:54-0400 Respiratory rate 18 /min Lauren Podlogar CHAIR INSTALLER.DIRECT SUPPORT PROFESSIONAL Work Phone: [facility] 09-06-2022 09:54-0400 SaO2% (BldA) [Mass fraction] 93 % Lauren Podlogar CHAIR INSTALLER.DIRECT SUPPORT PROFESSIONAL Work Phone: [facility] 09-06-2022 09:54-0400 Systolic blood pressure 138 mm[Hg] Lauren Podlogar CHAIR INSTALLER.DIRECT SUPPORT PROFESSIONAL Work Phone: [facility] 06-07-2022 11:12-0500 Diastolic blood pressure 62 mm[Hg] Husam Yan MD Work Phone: [facility] 06-07-2022 11:12-0500 Systolic blood pressure 144 mm[Hg] Husam Yan MD Work Phone: [facility] 06-07-2022 10:29-0500 Body weight 98.7 kg Husam Yan MD Work Phone: [facility] 06-07-2022 10:29-0500 Heart rate 58 /min Husam Yan MD Work Phone: [facility] 06-07-2022 10:29-0500 Respiratory rate 16 /min Husam Yan MD Work Phone: [facility] 06-07-2022 10:29-0500 SaO2% (BldA) [Mass fraction] 96 % Husam Yan MD Work Phone: [facility] 03-05-2022 09:46-0400 Body weight 98.16 kg Husam Yan MD Work Phone: [facility] 03-05-2022 09:46-0400 Diastolic blood pressure 60 mm[Hg] Husam Yan MD Work Phone: [facility] 03-05-2022 09:46-0400 Heart rate 58 /min Husam Yan MD Work Phone: [facility] 03-05-2022 09:46-0400 Respiratory rate 16 /min Husam Yan MD Work Phone: [facility] 03-05-2022 09:46-0400 Systolic blood pressure 136 mm[Hg] Husam Yan MD Work Phone: [facility] 11-06-2021 09:22-0400 Body height 172.[address] Jean Yan Work Phone: [facility] Work Phone: 11-06-2021 09:22-0400 Body weight 97.[address] Jean Yan Work Phone: [facility] Work Phone: 11-05-2021 09:04-0400 Body mass index (BMI) [Ratio] 32.5 kg/m2 Dr. Jean Yan Work Phone: [facility] Work Phone: 10-21-2021 14:22-0400 Body mass index (BMI) [Ratio] 32.5 kg/m2 Dr. Jean Yan Work Phone: [facility] Work Phone: 10-21-2021 14:22-0400 Body temperature 98 [degF] Dr. Jean Yan Work Phone: [facility] Work Phone: 10-21-2021 14:22-0400 Body weight 97.[address] Jean Yan Work Phone: [facility] Work Phone: 10-21-2021 14:22-0400 Diastolic blood pressure 75 mm[Hg] Dr. Jean Yan Work Phone: [facility] Work Phone: 10-21-2021 14:22-0400 Heart rate 43 /min Dr. Jean Yan Work Phone: [facility] Work Phone: 10-21-2021 14:22-0400 Respiratory rate 16 /min Dr. Jean Yan Work Phone: [facility] Work Phone: 10-21-2021 14:22-0400 SaO2% (BldA) [Mass fraction] 93 % Dr. Jean Yan Work Phone: [facility] Work Phone: 10-21-2021 14:22-0400 Systolic blood pressure 166 mm[Hg] Dr. Jean Yan Work Phone: [facility] Work Phone: 10-27-2016 15:34-0400 Heart rate 69 /min Carmen Hurt [facility] Work Phone: 10-27-2016 15:09-0400 BMI (Body Mass Index) 33.15 kg/m2 Carmen Hurt [facility] Work Phone: 10-27-2016 15:090400 Body weight 101.83 kg [facility] Work Phone: 10-27-2016 15:09-0400 BP Diastolic 70 mm[Hg] [facility] Work Phone: 10-27-2016 15:09-0400 BP Systolic 152 mm[Hg] [facility] Work Phone: 10-27-2016 15:0400 Height 175.26 cm [facility] Work Phone: 10-27-2016 15:09-0400 Pulse (Heart Rate) 64 /min [facility] Work Phone: 10-27-2016 15:09-0400 Respiratory Rate 20 /min [facility] Work Phone: 10-27-2016 15:09-0400 Weight 101.83 kg [facility] Work Phone: Encounters Encounter Date Encounter Type Care Provider Facility Start: 12-11-2024 End: 12-11-2024 Telephone encounter William Chilel MD Work Phone: Cardiology Comment on above: Courtesy call (Cognection e survey) Start: 11-23-2024 End: 11-28-2024 Evaluation and management of inpatient LELE DEASI Facility:[facility] Start: 11-22-2024 End: 11-23-2024 Dr. Nando Wiggins MD Work Phone: -Emergency Department Work Phone: Start: 11-22-2024 End: 11-23-2024 Emergency department patient visit Dr. Nando Wiggins MD Work Phone: -Emergency Department Start: 11-12-2024 ambulatory Nando Wiggins OLS Fa cility:[facility] Start: 11-12-2024 Nando Wiggins MD [facility] Start: 11-08-2024 End: 11-09-2024 Dr. Nando Wiggins MD Work Phone: -Emergency Department Work Phone: Start: 11-08-2024 End: 11-09-2024 Emergency department patient visit Dr. Nando Wiggins MD Work Phone: [facility] Work Phone: Start: 11-05-2024 ambulatory Nando Wiggins OLS Fa cility:[facility] Start: 11-05-2024 [facility] Start: 11-02-2024 End: 11-02-[address] Nando Wiggins MD Work Phone: -[facility] Start: 11-02-2024 End: 11-02-2024 Meredith Guevara [employer]-C -[facility] Work Phone: Start: 10-29-2024 End: 10-29-2024 ambulatory Nando Wiggins Facility[facility] Start: 10-29-2024 End: 10-29-2024 Pooja Ruano [employer]EN [employer]ER-C -[facility] Work Phone: Start: 10-22-2024 ambulatory Nando Wiggins OLS Fa cility:[facility] Start: 10-22-2024 [facility] Start: 10-17-2024 End: 10-17-2024 Salma MINER -[facility] Work Phone: Start: 10-17-2024 End: 10-17-2024 ambulatory Salma Cervantes Facility:[facility] Start: 10-16-2024 End: 10-16-[address] Nando Wiggins MD Work Phone: -[facility] Start: 10-16-2024 End: 10-16-2024 Nando Wiggins MD [facility] Start: 10-08-2024 ambulatory Nando SHERWOOD Fa cility:[facility] Start: 10-08-2024 Nando Wiggins MD [facility] Start: 10-03-2024 End: 10-03-2024 Salma MINER -[facility] Work Phone: Start: 10-03-2024 End: 10-03-[address] Jean Yan MD Work Phone: [facility] Work Phone: Start: 10-02-2024 End: 10-02-[address] Nando Wiggins MD Work Phone: [facility] Work Phone: Start: 10-02-2024 End: 10-02-2024 Nando Wiggins MD [facility] Start: 10-02-2024 End: 10-02-2024 ambulatory Nando SHERWOOD Facility:[facility] Start: 09-24-2024 ambulatory Warren Whitaker ty:[facility] Start: 09-24-2024 Dr. Randal Damico MD - H-[facility] Start: 09-24-2024 End: 10-18-[address] Jean Yan MD Work Phone: [facility] Work Phone: Start: 09-24-2024 End: 10-18-2024 Dr. Randal Damico MD -[facility] Work Phone: Start: 09-24-2024 End: 09-24-2024 ambulatory Effili SHERWOOD Facility:[facility] Start: 09-21-2024 ambulatory Salma Cervantes [facility] Start: 09-17-2024 End: 09-17-2024 Nando Wiggins MD [facility] Start: 09-17-2024 End: 09-17-2024 ambulatory Nando SHERWOOD Facility:[facility] Start: 09-12-2024 End: 09-12-[address] Jean Yan MD Work Phone: [facility] Work Phone: Start: 09-12-2024 End: 09-12-2024 Nando Wiggins MD [facility] Start: 09-12-2024 End: 09-12-2024 ambulatory Nando Wiggins OLS Facility:[facility] Start: 09-10-2024 ambulatory Debsaint louiswolf Wiggins OLS Fa cility:[facility] Start: 09-10-2024 Nando Wiggins MD [facility] Start: 09-05-2024 End: 09-05-2024 ambulatory Debsaint louiswolf [place] [facility] Start: 09-05-2024 End: 09-05-2024 Meredith STEWART -[facility] Work Phone: Start: 09-04-2024 Salma MINER -[facility] Start: 09-03-2024 Dr. Lele White MD -[facility] Start: 09-03-2024 Dr. Randal Damico MD -[facility] Start: 09-02-2024 Salma MINER [facility] Start: 09-01-2024 Salma MINER [facility] Start: 08-31-2024 ambulatory Lele White Facility[facility] Start: 08-31-2024 Dr. Randal Damico MD -[facility] Start: 08-31-2024 Salma MINER [facility] Start: 08-30-2024 Salma MINER [facility] Start: 08-30-2024 Dr. Randal Damico MD -[facility] Start: 08-29-2024 ambulatory Lele White [facility] Start: 08-29-2024 End: 09-04-2024 Evaluation and management of inpatient Lele Christopher Facility:[facility] Start: 08-29-2024 End: 09-04-2024 Dr. Lele White MD -Medical Surgical 3 Work Phone: Start: 08-29-2024 Dr. Lele White MD -[facility] Start: 08-29-2024 ambulatory Lele White [facility] Start: 08-28-2024 ambulatory Nando SHERWOOD Fa cility:[facility] Start: 08-28-2024 Nando Wiggins MD [facility] Start: 08-27-[address] [facility] Start: 08-27-2024 Dr. Randal Damico MD -[facility] Start: 08-27-2024 End: 09-19-2024 ambulatory Randal Damico Facility:[facility] Start: 08-27-2024 End: 09-19-2024 Dr. Randal Damico MD [facility] Work Phone: Start: 08-27-2024 End: 08-27-2024 ambulatory Nando SHERWOOD Facility:[facility] Start: 08-20-2024 ambulatory Randal Damico Facility[facility] Start: 08-20-2024 Dr. Randal Damico MD -[facility] Start: 08-20-2024 End: 08-20-2024 ambulatory Warren Crespoall Facility:[facility] Start: 08-20-2024 End: 08-20-2024 Dr. Randal Damico MD -[facility] Work Phone: Start: 08-17-2024 ambulatory Salma Cervantes Facility:[facility] Start: 08-14-2024 End: 08-14-2024 ambulatory Deblilian Wiggins Facility[facility] Start: 08-14-2024 End: 08-14-2024 Dr. Nando Wiggins MD -[facility] Work Phone: Start: 08-13-2024 ambulatory Randal Damico [facility] Start: 08-13-2024 End: 08-13-2024 Dr. Randal Damico MD -[facility] Start: 08-13-2024 End: 08-13-2024 ambulatory Nando SHERWOOD Facility:[facility] Start: 08-06-2024 ambulatory Randal Damico [facility] Start: 08-06-2024 Dr. Randal Damico MD -[facility] Start: 08-01-2024 End: 08-01-2024 Emergency department patient visit [facility] Facility:[facility] Start: 08-01-2024 End: 08-01-2024 ambulatory [facility] Facility[facility] Start: 08-01-2024 End: 08-01-2024 Dr. Des Garcia DO -[facility] nt Work Phone: Start: 07-31-2024 End: 07-31-2024 ambulatory [facility] Facility:[facility] Start: 07-31-2024 End: 07-31-2024 Meredith Guevara -C -[facility] Work Phone: Start: 07-30-2024 ambulatory Warren Crespoall [facility] ty:[facility] Start: 07-30-2024 Dr. Randal Damico MD [facility] H[facility] Start: 07-23-[address] [facility] Start: 07-23-2024 Dr. Randal Damico MD [facility] H-S Start: 07-20-2024 Dr. Margarette Godinez DO -[facility] Work Phone: Start: 07-20-2024 ambulatory [facility] Start: 07-20-2024 Dr. Lele White MD [facility] Start: 07-19-2024 Dr. Margarette Godinez DO -[facility] Work Phone: Start: 07-18-2024 ambulatory [facility] Start: 07-18-2024 Dr. Lele White MD [facility] Start: 07-18-2024 Dr. Margarette Godinez DO -[facility] Work Phone: Start: 07-17-2024 Dr. Jayla Osuna MD [facility] Work Phone: Start: 07-16-2024 ambulatory [facility] Facili ty:[facility] Start: 07-16-2024 Dr. Zenaida Cooper MD [facility] Start: 07-15-2024 Dr. Juan [facility] Work Phone: Start: 07-14-2024 Dr. Juan [facility] Work Phone: Start: 07-13-2024 End: 07-20-2024 Evaluation and management of inpatient Jalya Osuna Facility:[facility] Start: 07-13-2024 End: 07-20-2024 Dr. Margarette Godinez DO -Medical Surgical 3 Work Phone: Start: 07-13-2024 ambulatory Jayla Osuna [facility] Start: 07-13-2024 End: 07-13-2024 ambulatory Nando Wiggins Facility:[facility] Start: 07-13-2024 End: 07-13-2024 Meredith Guevara [employer]ER-C -[facility] Work Phone: Start: 07-11-2024 End: 07-12-2024 Patient encounter procedure Pham Walker MA [facility] [place] Comment on above: Population Health Na vigation Outreach (gabriele ramirezdarlindelvin malagon) Start: 07-11-2024 End: 07-20-2024 ambulatory Pham Walker [facility] [place] Start: 07-11-2024 End: 07-20-2024 Dr. Randal Damico MD -[facility] Work Phone: Start: 07-10-2024 End: 07-10-2024 ambulatory Nando Wiggins Facility[facility] Start: 07-10-2024 End: 07-10-2024 Meredith Guevara NP-C -[facility] Work Phone: Start: 07-09-2024 End: 07-10-2024 Refill [facility] Comment on above: Refill Request Start: 07-09-2024 Nando Wiggins MD - [facility] Start: 07-07-2024 End: 07-07-2024 Dr. [facility] Work [facility] Start: 07-07-2024 End: 07-07-2024 Emergency department patient visit [facility] Facility:[facility] Start: 07-03-2024 End: 07-03-2024 Dr. Eric Franklin MD -Emergency [facility] Work Phone: Start: 07-03-2024 End: 07-03-2024 Emergency department patient visit [facility] Facility:[facility] Start: 07-02-2024 Dr. Fernando stein DO -[place] [facility] Work Phone: Start: 07-02-2024 End: 07-02-2024 ambulatory Manuel Alva Facility:[facility] Start: 07-02-2024 End: 07-02-2024 Dr. Fernando Oliveros DO -[facility] Work Phone: Start: 06-25-2024 [facility] Start: 06-25-2024 Nando Bravo Start: 06-20-2024 End: 06-20-2024 Salma MINER -[facility] Work Phone: Start: 06-20-2024 End: 06-20-2024 ambulatory Salma Cervantes [facility] Start: 06-19-2024 End: 06-22-2024 ambulatory Des Ruelas Facility:[facility] Start: 06-19-2024 End: 06-22-2024 Dr. Des Ruelas [facility] -W[facility] Healing [facility] Work Phone: Start: 06-18-2024 ambulatory Effili Wiggins OLS Fa cility:[facility] Start: 06-18-2024 Nando Bravo Start: 06-11-2024 End: 06-11-2024 Patient [facility] [place] Comment on above: Population Health Na vigation Outreach ([facility]) Start: 06-11-2024 End: 06-11-2024 ambulatory [facility] [place] Start: 06-11-2024 Nando Bravo Start: 06-08-2024 ambulatory Nando Wiggins OLS Fa cility:[facility] Start: 06-08-2024 Nando Bravo Start: 06-06-2024 End: 06-06-2024 ambulatory Nando Wiggins Facility[facility] Start: 06-06-2024 End: 06-06-2024 Meredith Guevara [employer]ER -[facility] Work Phone: Start: 06-06-2024 End: 06-06-2024 ambulatory Des Ruelas Facility:[facility] Start: 06-06-2024 End: 06-06-2024 Dr. Des Ruelas DPM -[facility] Day [facility] Start: 06-06-2024 End: 06-06-2024 ambulatory Nando Brownedesiree SHERWOOD Facility:[facility] Start: 06-04-2024 End: 06-04-2024 ambulatory Debsaint louiswolf Wiggins Facility:[facility] Start: 05-30-2024 End: 06-05-2024 Telephone encounter Husam Yan MD Work Phone: [facility] Comment on above: Patient Update; Fill out Surgical Release Forms Start: 05-28-2024 ambulatory Debsaint louiswolf Wiggins OLS Fa cility:[facility] Start: 05-22-2024 ambulatory Lele White Facility:[facility] Start: 05-22-2024 End: 05-22-2024 ambulatory Lele White Facility:[facility] Start: 05-21-2024 ambulatory Nando Wiggins OLS Fa cility:[facility] Start: 05-17-2024 ambulatory Warren Mendoza Facili ty:[facility] Start: 05-17-2024 End: 05-22-2024 ambulatory Warren Mendoza Facility:[facility] Start: 05-15-2024 End: 05-15-2024 ambulatory Nando Wiggins Facility:[facility] Start: 05-11-2024 End: 05-11-2024 ambulatory Meredith Guevara [employer] Facility:[facility] Start: 05-04-2024 ambulatory Deni Shields Fac ility:[facility] Start: 05-04-2024 End: 05-10-2024 ambulatory Lele White Facility[facility] Start: 05-04-2024 End: 05-10-2024 Evaluation and management of inpatient Deni Shields Facility:[facility] Start: 05-02-2024 ambulatory Jeaninder Yan Faci lity:[facility] Start: 04-23-2024 End: 04-23-2024 ambulatory Sridevi Miller SHAHEEN [facility] [place] Start: 04-23-2024 End: 04-23-2024 Patient encounter procedure Sridevi Miller MA [facility] Comment on above: Population Health Na vigation Outreach ([facility] [facility] Start: 04-16-2024 ambulatory Lele White [facility] Start: 04-16-2024 End: 04-16-2024 ambulatory Jean Yan Facility[facility] Start: 04-14-2024 End: 04-24-2024 Evaluation and management of inpatient Warren Mendoza Facility:[facility] Start: 04-14-2024 ambulatory Warren Mendoza Facili ty:[facility] Start: 04-14-2024 End: 04-14-2024 ambulatory HUSAM LEWPATRICIA Facility:[facility] Start: 04-14-2024 End: 04-14-2024 Patient encounter procedure Usman Quesada APRN.CNP Work Phone: [facility] Comment on above: Right foot infection (Primary Dx) Start: 04-13-2024 End: 04-17-2024 Telephone encounter Lauren Arzola APRN.CNP Work Phone: [facility] Comment on above: blood sugar reading average Start: 04-05-2024 End: 04-06-2024 Telephone encounter Lauren Arzola APRN.CNP Work Phone: [facility] [place] Comment on above: blood sugar average Start: 03-28-2024 End: 03-28-2024 Patient encounter procedure Lauren Arzola APRN.CNP Work Phone: [facility] Comment on above: 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 Start: 01-06-2024 End: 01-06-2024 Patient encounter procedure Lauren Podlogar KIKE Work Phone: [facility] [place] Comment on above: Type 2 diabetes [...] End: 01-06-2024 ambulatory LAUREN PODLOGAR Facility:[facility] Start: 12-15-2023 End: 02-02-2024 Refill Husam Yan MD Work Phone: [facility] [place] Comment on above: Refill Request (See Rx notes) Start: 09-08-2023 End: 09-08-2023 ambulatory JEAN PIERRE ARREAGA MD Facility:[facility] Start: 09-08-2023 End: 09-08-2023 SAME DAY STAY JEAN PIERRE ARREAGA MD [facility] Start: 09-06-2023 Telephone encounter Jean aYn MD Work Phone: [facility] [place] Comment on above: Medication Request Start: 08-08-2023 Telephone encounter Jean Yan MD Work Phone: [facility] [place] Comment on above: Medication Problem ( Freestyle gelacio 14 day sensor kit - patient's sensor reader is a gelacio 2 and the sensors ordered by our office are incompatible with his reader ) Start: 07-28-2023 Refill Husam Yan MD Work Phone: [facility] Comment on above: Refill Request Start: 07-12-2023 Refill Husam Yan MD Work Phone: [facility] Comment on above: Refill Request Start: 07-11-2023 Refill Husam Yan MD Work Phone: [facility] Comment on above: Refill Request Start: 06-27-2023 End: 06-27-2023 Patient encounter procedure Danilo Martines Work Phone: Podiatry Comment on above: 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, without long-term current use of insulin (HCC) (Primary Dx); Onychomycosis; Left foot pain; Right foot pain Start: 03-15-2023 Telephone encounter Jean Yan MD Work Phone: [facility] Comment on above: [facility] requesting records Start: 03-08-2023 Telephone encounter Jean Yan MD Work Phone: [facility] Comment on above: Medication Problem Start: 02-23-2023 Telephone encounter Jean Yan MD Work Phone: [facility] [place] Comment on above: Insurance Authorizat ion Start: 01-04-2023 Refill Husam Yan MD Work Phone: [facility] Start: 12-06-2022 End: 12-06-2022 Patient encounter procedure Lauren Xielogerick [facility] Work Phone: [facility] Comment on above: Type 2 diabetes hernan [...] 11-15-2022 Refill Husam Yan MD Work Phone: [facility] [place] Comment on above: Refill Request Start: 11-04-2022 Refill Husam Yan MD Work Phone: [facility] [place] Comment on above: Refill Request Start: 10-27-2022 Refill Husam Yan MD Work Phone: [facility] [place] Comment on above: Refill Request Start: 09-06-2022 End: 09-06-2022 Patient encounter procedure Lauren Dariusz STOKES Work Phone: [facility] [place] Comment on above: 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, without long-term current use of insulin ([facility]) (Primary Dx); ESRD (end stage renal disease) on dialysis ([facility]); Chronic diastolic heart failure ([facility]) Start: 08-19-2022 Refill Husam Yan MD Work Phone: [facility] [place] Comment on above: Refill Request Start: 06-08-2022 Telephone encounter Jean Yan MD Work Phone: [facility] [place] Comment on above: Results Start: 06-07-2022 End: 06-07-2022 Patient encounter procedure Husam Yan MD [facility] Comment on above: 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, without long-term current use of insulin ([facility]) (Primary Dx); Essential hypertension; Mixed hyperlipidemia; ESRD (end stage renal disease) on dialysis ([facility]); Chronic diastolic heart failure ([facility]); Bradycardia; Lower extremity edema; Noncompliance of patient with dietary regimen; 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 ([facility]); 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 edema, with long-term current use of insulin ([facility]) Start: 03-09-2022 Telephone encounter Jean Yan MD Work Phone: [facility] [place] Comment on above: Results Start: 03-05-2022 End: 03-05-2022 Patient encounter procedure Husam Yan MD Work Phone: [facility] Comment on above: 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, without long-term current use of insulin (HCC) (Primary Dx); Essential hypertension; Mixed hyperlipidemia; 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); Need for COVID-19 vaccine Start: 02-03-2022 Telephone encounter Jean Yan MD Work Phone: [facility] Comment on above: Insurance Authorizat ion (Information on Glargine) Start: 02-02-2022 Refill Husam Yan MD Work Phone: [facility] Comment on above: Refill Request Start: 01-26-2022 Refill Husam Yan MD Work Phone: [facility] Comment on above: Refill Request Start: 12-14-2021 Refill Husam Yan MD Work Phone: [facility] Comment on above: Refill Request Start: 11-06-2021 Non-patient / Non-visit Dr. Mike Yan Work Phone: [facility] Start: 11-06-2021 End: 11-06-2021 Admission to same day surgery center Dr. Jean Yan Work Phone: [facility]-Electrical Research Engineer/Special Procedures Start: 10-21-2021 End: 10-21-[address] 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 Yasir Yan Work Phone: [facility] Procedures Date Procedure Procedure Detail Performing Clinician Start: 11-27-2024 Antibody screen LAUREN KRAMER Comment on above: Order Comment: Speci men Type: BLOOD SPECIMENOrdering Facility: [facility] Address: [address] [place] [address] Performed By: #### T SCR ####CC MAIN BLOOD BANKCLIA [id number] [address] Start: 11-23-2024 Antibody screen LAUREN KRAMER Comment on above: Order Comment: Speci men Type: BLOOD SPECIMENOrdering Facility: [facility] Address: [address] [place] [address] Performed By: #### T SCR ####CC MAIN BLOOD BANKCLIA [id number] [address] Start: 11-22-2024 Plain chest X-ray Dr. Desiree Wiggins MD Work Phone: Start: 11-22-2024 Blood count smear mc rscp w/mnl difrntl wbc count Dr. Nando Wiggins MD Work Phone: Start: 11-22-2024 Calculation of international normalized ratio Dr. Nando Wiggins MD Work Phone: Start: 11-22-[address] Nando Wiggins MD Work Phone: Start: 11-22-2024 Mean corpuscular hemoglobin concentration determination Dr. Nando Wiggins MD Work Phone: Start: 11-22-2024 Nucleated red blood cell count procedure Dr. Nando Wiggins MD Work Phone: Start: 11-22-2024 Platelet mean volume determination Dr. Nando Wiggins MD Work Phone: Start: 11-12-[address] Nando Wiggins MD Work Phone: Start: 11-12-2024 Total cholesterol:HD L ratio measurement Dr. Nando Wiggins MD Work Phone: Start: 11-08-2024 X-ray of foot, three or more views Dr. Nando Wiggins MD Work Phone: Start: 11-08-2024 CT of head without contrast Dr. Nando Wiggins MD Work Phone: Start: 11-05-2024 Blood count smear mc rscp w/mnl difrntl wbc count Dr. Nando Wiggins MD Work Phone: Start: 11-05-2024 Mean corpuscular hemoglobin concentration determination Dr. Nando Wiggins MD Work Phone: Start: 11-05-2024 Nucleated red blood cell count procedure Dr. Nando Wiggins MD Work Phone: Start: 11-05-2024 Platelet mean volume determination Dr. Nando Wiggins MD Work Phone: Start: 10-29-2024 Blood count smear mc rscp w/mnl difrntl wbc count Dr. Nando Wiggins MD Work Phone: Start: 10-29-2024 Mean corpuscular hemoglobin concentration determination Dr. Nando Wiggins MD Work Phone: Start: 10-29-2024 Nucleated red blood cell count procedure Dr. Nando Wiggins MD Work Phone: Start: 10-29-2024 Platelet mean volume determination Dr. Nando Wiggins MD Work Phone: Start: 10-22-2024 Blood count smear mc rscp w/mnl difrntl wbc count Dr. Nando Wiggins MD Work Phone: Start: 10-22-2024 Mean corpuscular hemoglobin concentration determination Dr. Nando Wiggins MD Work Phone: Start: 10-22-2024 Nucleated red blood cell count procedure Dr. Nando Wiggins MD Work Phone: Start: 10-22-2024 Platelet mean volume determination Dr. Nando Wiggins MD Work Phone: Start: 10-16-2024 Blood count smear mc rscp [...] rscp w/mnl difrntl wbc count Dr. Jean aYn MD Work Phone: Start: 08-27-2024 Mean corpuscular [...] Phone: Start: 07-13-[address] Jaen Yan MD Work Phone: Start: 07-13-[address] Gil Yan MD Work Phone: Start: 07-13-2024 Gram stain microscopy Boo Yan MD Work Phone: Start: 07-13-2024 Identification proce dure for living organism Dr. Jean Yan MD Work Phone: Start: 07-13-2024 Microbial culture, routine Dr. Jean Yan MD Work Phone: Start: 07-13-2024 Dr. Bi Yan MD Work Phone: Start: 07-09-2024 Anion gap measurement D rChucho Yan MD Work Phone: Start: 07-09-2024 Blood count smear rscp w/mnl difrntl wbc [...] Work Phone: Start: 06-18-2024 Anion gap measurement D rChucho Yan MD Work Phone: Start: 06-18-2024 Blood [...] Work Phone: Start: 06-11-2024 Anion gap measurement D aleshia Yan MD Work Phone: Start: 06-11-2024 Blood [...] Work Phone: Start: 06-06-2024 Gram stain microscopy D aleshia Yan MD Work Phone: Start: 06-06-2024 End: [...] 12-06-2022 Hemoglobin A1c/Hemoglobin.total in Blood Lauren Podlogar CHAIR INSTALLER.DIRECT SUPPORT PROFESSIONAL Work Phone: Start: 09-06-2022 Hemoglobin A1c/Hemoglobin.total in Blood Lauren Podlogar CHAIR INSTALLER.DIRECT SUPPORT PROFESSIONAL Work Phone: Start: 03-05-2022 [facility] COVI D-19 BIVALENT BOOSTER VACCINE, AGE 12+ [...] Yan Work Phone: Repair of inguinal hernia NARESH ARREAGA MD Comment on above: UNSURE OF LATERALITY , HAD IN THE LATE 1959'S OR EARLY S Tooth extraction JEAN PIERRE ARREAGA MD Comment on above: ALL TEETH REMOVED Plan of Treatment Date Care Activity Detail Author Start: 04-26-2028 Urine microalbumin profile [facility] Start: 11-23-2025 Hepatitis B surface antibody level LDL Cholesterol [facility] Start: 09-17-2025 Glaucoma screening Dilated Retinal Exam [facility] Start: 05-26-2025 Hemoglobin A1c measurement HbA1C [facility] Start: 01-21-2025 Influenza vaccination Influenza Vaccine (#1) [facility] Start: 01-08-2025 End: 01-08-2025 Patient encounter procedure 01/08/2025 10:30 AM EDT Appointment Cardiology [address] [place] [address] OUTPATIENT 4-6W DEVICE CHECK (PACEMAKER) Cardiology Comment on above: OUTPATIENT 4-6W DEVICE CHECK (PACEMA KER) Start: 11-22-2024 End: 11-22-2024 [facility] Start: 11-08-2024 [facility] Start: 09-04-2024 Patient discharge [facility] Start: 09-04-2024 End: 09-04-2024 [facility] Start: 09-04-2024 Hemodialysis care [facility] Start: 09-03-2024 Application of intermittent pneumatic compression device [facility] Start: 09-03-2024 Wound care [facility] Start: 09-03-2024 [facility] Start: 09-01-2024 End: 09-01-2024 [facility] Start: 09-01-2024 Hemodialysis care [facility] Start: 09-01-2024 Inhalation therapy procedure [facility] Start: 08-30-2024 Following clinical pathway protocol [facility] Start: 08-30-2024 [facility] Start: 08-30-2024 End: 08-30-2024 [facility] Start: 08-30-2024 Hemodialysis care [facility] Start: 08-30-2024 Referral to anodiser [facility] Start: 08-29-2024 Following clinical pathway protocol [facility] Start: 08-29-2024 Assessment of risk of venous thromboembolism [facility] Start: 08-29-2024 Care regimes management [facility] Start: 08-29-2024 Insertion of catheter into peripheral vein [facility] Start: 08-29-2024 Notification of physician [facility] Start: 08-29-2024 Providing care according to standard [facility] Start: 08-29-2024 Referral to occupational therapist [facility] Start: 08-29-2024 Referral to service [facility] Start: 08-29-2024 End: 08-29-2024 [facility] Start: 08-29-2024 Admission procedure [facility] Start: 08-01-2024 [facility] Start: 07-20-2024 Patient discharge [facility] Start: 07-19-2024 End: 07-19-2024 [facility] Start: 07-19-2024 Hemodialysis care [facility] Start: 07-17-2024 End: 07-17-2024 [facility] Start: 07-17-2024 Hemodialysis care [facility] Start: 07-17-2024 Wound care [facility] Start: 07-16-2024 Following clinical pathway protocol [facility] Start: 07-16-2024 Inhalation therapy procedure [facility] Start: 07-14-2024 [facility] Start: 07-14-2024 Consultation [facility] Start: 07-14-2024 End: 07-14-2024 [facility] Start: 07-14-2024 Hemodialysis care [facility] Start: 07-13-2024 Application of intermittent pneumatic compression device [facility] Start: 07-13-2024 Assessment of risk of venous thromboembolism [facility] Start: 07-13-2024 Care regimes management [facility] Start: 07-13-2024 Consultation for treatment [facility] Start: 07-13-2024 Insertion of catheter into peripheral vein [facility] Start: 07-13-2024 Measuring intake and output [facility] Start: 07-13-2024 Notification of physician [facility] Start: 07-13-2024 Providing care according to standard [facility] Start: 07-13-2024 Provision of activity privileges [facility] Start: 07-13-2024 Referral to anodiser [facility] Start: 07-13-2024 Referral to occupational therapist [facility] Start: 07-13-2024 Referral to corset fitter [facility] Start: 07-13-2024 Referral to service [facility] Start: 07-13-2024 End: 07-13-2024 [facility] Start: 07-13-2024 Admission procedure [facility] Start: 07-09-2024 End: 07-09-2024 Patient encounter procedure 07/09/2024 9:40 AM EST Office Visit [facility] [place] [address] [place] [address] Husam Yan MD [address] [place] [address] 6 month follow up Family [facility] Comment on above: 6 month follow up Start: 07-07-2024 [facility] Start: 07-03-2024 [facility] Start: 07-02-2024 Patient discharge [facility] Start: 07-02-2024 End: 07-02-2024 [facility] Start: 07-02-2024 Hemodialysis care [facility] Start: 07-02-2024 Assessment of risk of venous thromboembolism [facility] Start: 07-02-2024 Catheterization of vein [facility] Start: 07-02-2024 Insertion of catheter into peripheral vein [facility] Start: 07-02-2024 Measuring intake and output [facility] Start: 07-02-2024 Providing care according to standard [facility] Start: 07-02-2024 Referral to anodiser [facility] Start: 07-02-2024 Admission procedure [facility] Start: 06-28-2024 Hemoglobin A1c measurement HbA1C [facility] Start: 06-06-2024 Adjt tis trns/reargmt f/c/c/m/n/a/g/h/f 10sqcm/< [facility] Start: 06-06-2024 Amputation foot transmetarsal [facility] Start: 06-06-2024 Anes open proc bones lower leg/ankle/foot nos [facility] Start: 06-06-2024 Catheterization of vein [facility] Start: 06-06-2024 Neurovascular assessment [facility] Start: 06-06-2024 Patient discharge [facility] Start: 06-06-2024 Procedure discontinued [facility] Start: 06-06-2024 Vital signs measurements [facility] Start: 06-06-2024 [facility] Start: 05-25-2024 Hepatitis B surface antibody level LDL Cholesterol [facility] Start: 05-23-2024 Advance Directive Discussion Advance Directive Discussion [facility] Start: 05-23-2024 Medicare Advantage Annual Wellness Visit Medicare Advantage Annual Wellness Visit [facility] Start: 04-27-2024 Glaucoma screening Dilated Retinal Exam [facility] Start: 02-22-2024 3 comp foot exam completed Diabetic Foot Exam [facility] Start: 02-22-2024 Diabetic foot examination Diabetic Foot Exam [facility] Start: 02-10-2024 End: 02-10-2024 Patient encounter procedure 02/10/2024 11:30 AM EDT Office Visit Podiatry [address] [place] [address] Danilo Martines [address] [place] [id number] 3 month follow up nail care Podiatry Comment on above: 3 month follow up nail care Start: 01-22-2024 Covid-19 Vaccine ( season) Covid-19 Vaccine ( season) [facility] Start: 01-22-2024 Covid-19 Vaccine ( season) Covid-19 Vaccine () [facility] Start: 01-22-2024 Influenza vaccination Influenza Vaccine (#1) [facility] Start: 01-06-2024 End: 04-06-2024 Comprehensive metabolic 2000 panel - Serum or Plasma COMPREHENSIVE METABOLIC PANEL Lab Routine 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 edema, with long-term current use of insulin (HCC) Expected: 01/06/2024, Expires: 04/06/2024 [facility] Work Phone: Comment on above: Expected: 01/06/2024, Expires: Start: 01-06-2024 End: 04-06-2024 Hemoglobin A1c in Blood HEMOGLOBIN A1C Lab Routine 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 edema, with long-term current use of insulin (HCC) Expected: 01/06/2024, Expires: 04/06/2024 [facility] Comment on above: Expected: 01/06/2024, Expires: Start: 11-04-2023 End: 11-04-2023 Patient encounter procedure Podiatry Comment on above: 3 month follow up nail care 4 month follow up Start: 08-24-2023 Hemoglobin A1c measurement HbA1C [facility] Start: 07-06-2023 Hepatitis B Vaccine (9 of 9 - Risk Dialysis Recombivax 3-dose series) Hepatitis B Vaccine (9 of 9 - Risk Dialysis Recombivax 3-dose series) [facility] Start: 06-24-2023 Covid-19 Vaccine (4 - Additional dose for Len series) Covid-19 Vaccine (4 - Additional dose for Len series) [facility] Start: 06-24-2023 Covid-19 Vaccine (2022- season) Covid-19 Vaccine ( season) [facility] Start: 06-07-2023 SHINGRIX VACCINE (1 of 2) SHINGRIX VACCINE (1 of 2) [facility] Comment on above: Postponed from 1956 (Declined at t his time) Postponed from 04/30 (Declined at this time) Start: 05-23-2023 Advance Directive Discussion Advance Directive Discussion [facility] Start: 05-23-2023 Behavioral Health Screening Behavioral Health Screening [facility] Start: 03-08-2023 Hemoglobin A1c/Hemoglobin.total in Blood HBA1C [facility] Start: 03-05-2023 Hepatitis B surface antibody level LDL CHOLESTEROL [facility] Start: 03-04-2023 Hepatitis B Vaccine (6 of 6 - Risk Dialysis Recombivax 3-dose series) Hepatitis B Vaccine (6 of 6 - Risk Dialysis Recombivax 3-dose series) [facility] Start: 02-08-2023 Hepatitis C antibody, confirmatory test DILATED RETINAL EXAM [facility] Start: 01-21-2023 Influenza vaccination INFLUENZA (#1) [facility] Start: 12-06-2022 Hemoglobin A1c/Hemoglobin.total in Blood HBA1C [facility] Start: 09-06-2022 End: 11-06-2022 Hemoglobin A1c in Blood HGB A1C Lab Routine 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, without long-term current use of insulin (HCC) Expected: 09/06/2022, Expires: 11/06/2022 [facility] Work Phone: Comment on above: Expected: 09/06/2022, Expires: 3 Start: 09-05-2022 Hemoglobin A1c/Hemoglobin.total in Blood HBA1C [facility] Start: 09-02-2022 3 comp foot exam completed DIABETIC FOOT EXAM [facility] Start: 07-06-2022 COVID-19 VACCINE (4 - Additional dose for Len series) COVID-19 VACCINE (4 - Additional dose for Len series) [facility] Start: 06-07-2022 End: 08-07-2022 Comprehensive metabolic 2000 panel - Serum or Plasma [facility] Work Phone: Comment on above: Expected: 06/07/2022, Expires: 3 Start: 06-07-2022 End: 08-07-2022 Hemoglobin A1c in Blood [facility] Work Phone: Comment on above: Expected: 06/07/2022, Expires: 3 Start: 06-05-2022 Hemoglobin A1c/Hemoglobin.total in Blood HBA1C [facility] Start: 05-23-2022 ADVANCE DIRECTIVE DISCUSSION ADVANCE DIRECTIVE DISCUSSION [facility] Start: 02-25-2022 Hepatitis B surface antibody level LDL CHOLESTEROL [facility] Start: 01-21-2022 Influenza vaccination INFLUENZA (#1) [facility] Start: 12-05-2021 Hepatitis C antibody, confirmatory test DILATED RETINAL EXAM [facility] Start: 12-02-2021 Hemoglobin A1c/Hemoglobin.total in Blood HBA1C [facility] Start: 07-24-2021 COVID-19 VACCINE (3 - Booster for Len series) COVID-19 VACCINE (3 - Booster for Len series) [facility] Start: 05-23-2021 ADVANCE DIRECTIVE DISCUSSION ADVANCE DIRECTIVE DISCUSSION [facility] Start: 05-23-2021 DEPRESSION ASSESSMENT DEPRESSION ASSESSMENT [facility] Start: 05-21-2021 COVID-19 VACCINE (3 - Booster for Len series) COVID-19 VACCINE (3 - Booster for Len series) [facility] Start: 05-12-2017 End: 05-12-2017 Appointment Appointment [facility] Work Phone: Start: 10-27-2016 End: 10-27-2016 Appointment Appointment [facility] Work Phone: Start: 10-27-2016 End: 10-27-2016 Echocardiography Echocardiogram (complete) [facility] Work Phone: Start: 10-27-2016 End: 10-27-2016 Electrocardiogram, complete EKG (In office) [facility] Work Phone: Start: 10-27-2016 End: 10-27-2016 Follow Up Appt 6 months Follow Up Appt 6 months [facility] Work Phone: Start: 10-27-2016 End: 10-27-2016 MMM MMM [facility] Work Phone: Start: 10-27-2016 End: 10-27-2016 Nuclear stress test -Lexiscan Nuclear stress test -Lexiscan [facility] Work Phone: Start: 2012 RSV Vaccine (1 - 1-dose 75+ series) RSV Vaccine (1 - 1-dose 75+ series) [facility] Start: 1997 RSV Vaccine (1 - 1-dose 60+ series) RSV Vaccine (1 - 1-dose 60+ series) [facility] Start: 1987 SHINGRIX VACCINE (1 of 2) SHINGRIX VACCINE (1 of 2) [facility] Start: 1956 SHINGRIX VACCINE (1 of 2) SHINGRIX VACCINE (1 of 2) [facility] Start: 1955 Anxiety Screening Anxiety Screening [facility] Start: 1955 Depression Screening Depression Screening [facility] Patient Education [facility] Work Phone: Patient referral [facility] Work Phone: Referral for further care [facility] Immunizations Immunization Date Immunization Notes Care Provider Fa cili 04-01-2024 influenza virus vaccine, unspecified formulation William Chilel MD Work Phone: [facility] 03-15-2024 influenza, injectabl e, quadrivalent, preservative free Dr. Jean Yan MD Work Phone: [facility] 02-21-2023 COVID-19 vaccine, ag e 12+ yr, season (PFIZER-BIONTECH) Husam Yan MD Work Phone: [facility] 02-21-2023 influenza (HD-IIV4) vaccine, age 65+ yr, high dose, quadrivalent, PF (FLUZONE HIGH-DOSE) Husam Yan MD Work Phone: [facility] 02-21-2023 influenza virus vaccine, unspecified formulation JEAN PIERRE ARREAGA MD [facility] 02-21-2023 SARS-CoV-2 (COVID-19 ) [id number] JEAN PIERRE ARREAGA MD [facility] Comment on above: Result Comment: 2023: [id number] 03-05-2022 COVID-19 booster vaccine, age 12+ yr, bivalent (PFIZER-BIONTECH) Husam Yan MD Work Phone: [facility] 03-04-2022 Hepatitis B vaccine (recombinant), CpG adjuvanted Husam Yan MD Work Phone: [facility] Work Phone: 02-25-2022 influenza, high-dose , quadrivalent vaccine (FLUZONE HIGH DOSE QUADRIVALENT) Husam [place] MD Work Phone: [facility] Work Phone: 03-26-2021 SARS-CoV-2 (COVID-19 ) [id number] vaccine JEAN PIERRE ARREAGA MD [facility] 02-17-2021 influenza, high-dose , quadrivalent vaccine (FLUZONE HIGH DOSE QUADRIVALENT) Husam Yan MD Work Phone: [facility] 12-30-2020 Hepatitis B vaccine (recombinant), CpG adjuvanted Husam Yan MD Work Phone: [facility] 10-02-2020 Hepatitis B vaccine (recombinant), CpG adjuvanted Husam Yan MD Work Phone: [facility] 07-31-2020 COVID-19 vaccine (LEN) Husam Yan MD Work Phone: [facility] Comment on above: Result Comment: 2023: [id number] 07-01-2020 hepatitis B vaccine, adult dosage Husam Yan MD Work Phone: [facility] 06-03-2020 hepatitis B vaccine, adult dosage Husam Yan MD Work Phone: [facility] 04-19-2020 influenza virus vaccine, unspecified formulation JEAN PIERRE ARREAGA MD [facility] 04-19-2020 influenza, injectabl e, quadrivalent, preservative free Dr. Jean Yan MD Work Phone: [facility] 04-19-2020 influenza, seasonal, injectable Dr. Jean Yan Work Phone: [facility] Work Phone: 04-19-2020 influenza, seasonal, injectable, preservative free Husam Yan MD Work Phone: [facility] Work Phone: 02-28-2019 influenza virus vaccine, unspecified formulation JEAN PIERRE ARREAGA MD [facility] 02-28-2019 influenza, high dose seasonal, preservative-free Husam Yan MD Work Phone: [facility] 06-12-2014 pneumococcal conjuga te vaccine, 13 valent Husam Yan MD Work Phone: [facility] 02-20-2011 influenza virus vaccine, unspecified formulation Husam Yan MD Work Phone: [facility] Work Phone: 02-14-2009 influenza virus vaccine, unspecified formulation Husam Yan MD Work Phone: [facility] Work Phone: 11-01-2007 diphtheria and tetan us toxoids, adsorbed for pediatric use Husam Yan MD Work Phone: [facility] Work Phone: 05-08-2007 influenza virus vaccine, unspecified formulation Husam Yan MD Work Phone: [facility] Work Phone: 03-28-2006 influenza virus vaccine, unspecified formulation Husam Yan MD Work Phone: [facility] 03-04-2006 pneumococcal polysaccharide vaccine, 23 valent Husam Yan MD Work Phone: [facility] Work Phone: Payers Date Payer Category Payer Medicaid [id number] 10-28-2023 Self-pay [id number] 01-21-[address] [facility] PPO [id number] 01/21/2021-Present [phone] [place] [address] PPO [id number] 05-23-2017 Medicare [id number]. 1.13.159.2. [id number] 05-23-2017 Medicare (Managed Care) [employer]ISES [id number]. [id number] 05-23-2012 Medicare [id number] 1935 Unknown [id number] 2.840.1.504337.3.579.2. 627 Unknown SELF PAY INSURANCE [id number] Unknown [id number] 2.840.1.312225.3.579.2. 462 Unknown [id number] 2.840.1.614543.3.579.2. 462 Unknown [id number] 2.840.1.252713.3.579.2. 462 Unknown [id number] 2.840.1.374279.3.579.2. 462 Unknown [id number] 2.840.1.584129.3.579.2. 462 Unknown [id number] 2.840.1.943944.3.579.2. 462 Unknown [id number] 2.840.1.906346.3.579.2. 462 Unknown [id number] 2.840.1.226023.3.579.2. 462 Unknown [id number] 2.840.1.712123.3.579.2. 462 Unknown [id number] 2.840.1.227753.3.579.2. 462 Unknown [id number] 2.16840.1.131650.3.579.2. 462 Unknown [id number] 2.840.1.851257.3.579.2. 462 Unknown [id number] 2.16840.1.565962.3.579.2. 462 Unknown [id number] 2.16.840.1.939814.3.579.2. 462 Unknown [id number] 2.16.840.1.529410.3.579.2. 462 Unknown [id number] 2.16.840.1.695535.3.579.2. 462 Unknown [id number] 2.16.840.1.634537.3.579.2. 462 Unknown [id number] 2.16.840.1.092941.3.579.2. 462 Unknown [id number] 2.16.840.1.412857.3.579.2. 462 Unknown [id number] 2.16.840.1.045579.3.579.2. 462 Unknown [id number] 2.16.840.1.571574.3.579.2. 462 Unknown [id number] 2.16.840.1.919525.3.579.2. 462 Unknown [id number] 2.16.840.1.367411.3.579.2. 462 Unknown [id number] 2.16.840.1.714998.3.579.2. 462 Unknown [id number] 2.16.840.1.381968.3.579.2. 462 Unknown [id number] 2.16.840.1.874210.3.579.2. 462 Unknown [id number] 2.16.840.1.478493.3.579.2. 462 Unknown [id number] 2.16.840.1.706993.3.579.2. 462 Unknown [id number] 2.16.840.1.056527.3.579.2. 462 Unknown [id number] 2.16.840.1.849918.3.579.2. 462 Unknown [id number] 2.16.840.1.349053.3.579.2. 462 Unknown [id number] 2.16.840.1.779727.3.579.2. 462 Unknown [id number] 2.16.840.1.016289.3.579.2. 462 Unknown [id number] 2.16.840.1.637210.3.579.2. 462 Unknown [id number] 2.16.840.1.513800.3.579.2. 462 Unknown [id number] 2.16.840.1.608114.3.579.2. 462 Unknown [id number] 2.16.840.1.041305.3.579.2. 462 Unknown [id number] 2.16.840.1.732999.3.579.2. 462 Unknown [id number] 2.16.840.1.889267.3.579.2. 462 Unknown [id number] 2.16.840.1.889370.3.579.2. 462 Unknown [id number] 2.16840.1.122489.3.579.2. 462 Unknown [id number] 2.16.840.1.857982.3.579.2. 462 Unknown [id number] 2.16840.1.617962.3.579.2. 462 Unknown [id number] 2.16840.1.626947.3.579.2. 462 Unknown [id number] 2.16.840.1.070439.3.579.2. 462 Unknown [id number] 2.16.840.1.355271.3.579.2. 462 Unknown [id number] 2.16.840.1.389649.3.579.2. 462 Unknown [id number] 2.16.840.1.864736.3.579.2. 462 Unknown [id number] 2.16.840.1.260818.3.579.2. 462 Unknown [id number] 2.16.840.1.731994.3.579.2. 462 Unknown [id number] 2.16.840.1.972212.3.579.2. 462 Unknown [id number] 2.16.840.1.901808.3.579.2. 462 Unknown [id number] 2.16.840.1.051107.3.579.2. 462 Unknown [id number] 2.16.840.1.272879.3.579.2. 462 Unknown [id number] 2.16.840.1.435342.3.579.2. 462 Unknown [id number] 2.16.840.1.786819.3.579.2. 462 Unknown [id number] 2.16.840.1.734380.3.579.2. 462 Unknown [id number] 2.16.840.1.156378.3.579.2. 462 Unknown [id number] 2.16.840.1.739920.3.579.2. 462 Unknown [id number] 2.16.840.1.688305.3.579.2. 462 Unknown [id number] 2.16.840.1.730118.3.579.2. 462 Unknown [id number] 2.16.840.1.064646.3.579.2. 462 Unknown [id number] 2.16.840.1.067571.3.579.2. 462 Unknown [id number] 2.16.840.1.466218.3.579.2. 462 Unknown [id number] 2.16.840.1.802827.3.579.2. 462 Unknown [id number] 2.16.840.1.590394.3.579.2. 462 Unknown [id number] 2.16.840.1.965289.3.579.2. 462 Unknown [id number] 2.16.840.1.733245.3.579.2. 462 Unknown [id number] 2.16.840.1.223447.3.579.2. 462 Unknown [id number] 2.16.840.1.200729.3.579.2. 462 Unknown [id number] 2.16.840.1.506309.3.579.2. 462 Unknown [id number] 2.16.840.1.584194.3.579.2. 462 Unknown [id number] 2.16.840.1.743328.3.579.2. 462 Unknown [id number] 2.16.840.1.307781.3.579.2. 462 Unknown [id number] 2.16.840.1.152402.3.579.2. 462 Unknown [id number] 2.16.840.1.147399.3.579.2. 462 Unknown [id number] 2.16.840.1.540734.3.579.2. 462 Unknown [id number] 2.16.840.1.546726.3.579.2. 462 Unknown [id number] 2.16.840.1.702134.3.579.2. 462 Unknown [id number] 2.16.840.1.703681.3.579.2. 462 Unknown [id number] 2.16.840.1.626315.3.579.2. 462 Unknown [id number] 2.16.840.1.787119.3.579.2. 462 Unknown [id number] 2.16.840.1.269496.3.579.2. 462 Unknown [id number] 2.16.840.1.137786.3.579.2. 462 Unknown [id number] 2.16.840.1.196989.3.579.2. 462 Unknown [id number] 2.16.840.1.340590.3.579.2. 462 Unknown [id number] 2.16.840.1.720556.3.579.2. 462 Unknown [id number] 2.16.840.1.814695.3.579.2. 462 Unknown [id number] 2.16.840.1.686654.3.579.2. 462 Unknown [id number] 2.16.840.1.786580.3.579.2. 462 Unknown [id number] 2.16.840.1.199225.3.579.2. 462 Unknown [id number] 2.16.840.1.309310.3.579.2. 462 Unknown [id number] 2.16.840.1.239856.3.579.2. 462 Unknown [id number] 2.16.840.1.022803.3.579.2. 462 Unknown [id number] 2.16840.1.522053.3.579.2. 462 Unknown [id number] 2.16840.1.975273.3.579.2. 462 Unknown [id number] 2.16840.1.485505.3.579.2. 462 Unknown [id number] 2.16840.1.594008.3.579.2. 462 Unknown [id number] 2.16.840.1.030159.3.579.2. 462 Unknown [id number] 2.16.840.1.070638.3.579.2. 462 Unknown [id number] 2.16840.1.490331.3.579.2. 462 Unknown [id number] 2.16840.1.683931.3.579.2. 462 Unknown [id number] 2.16.840.1.938284.3.579.2. 462 Unknown [id number] 2.16.840.1.715731.3.579.2. 462 Unknown [id number] 2.16.840.1.728319.3.579.2. 462 Unknown [id number] 2.16.840.1.444298.3.579.2. 462 Unknown [id number] 2.16.840.1.223595.3.579.2. 462 Unknown [id number] 2.16.840.1.287501.3.579.2. 462 Unknown [id number] 2.16.840.1.661763.3.579.2. 462 Unknown [id number] 2.16.840.1.320727.3.579.2. 462 Unknown [id number] 2.16.840.1.047253.3.579.2. 462 Unknown [id number] 2.16.840.1.339916.3.579.2. 462 Unknown [id number] 2.16.840.1.761434.3.579.2. 462 Unknown [id number] 2.16.840.1.601070.3.579.2. 462 Unknown [id number] 2.16.840.1.435085.3.579.2. 462 Unknown [id number] 2.16.840.1.425081.3.579.2. 462 Unknown [id number] 2.16.840.1.099417.3.579.2. 462 Unknown [id number] 2.16.840.1.134980.3.579.2. 462 Unknown [id number] 2.16.840.1.080815.3.579.2. 462 Unknown [id number] 2.16.840.1.232332.3.579.2. 462 Social History Date Type Detail Facility Start: 07-25-2017 End: 03-05-2022 Tobacco smoking status NHIS Ex-smoker [facility] History of tobacco use Cigar Smoker [facility] Start: 07-25-2017 End: 03-05-2022 Tobacco use and exposure Smokeless tobacco non-user [facility] Start: 07-15-2021 End: 11-26-2024 Alcohol intake Current drinker of alcohol (finding) [facility] Start: 07-15-2021 End: 12-06-2022 Alcohol intake [facility] Work Phone: Start: 11-18-2016 History SDOH Alcohol Comment rarely [facility] Start: 04-28-2017 [facility] Start: 1935 Sex Assigned At Not on file [facility] Start: 02-02-2021 End: 03-05-2022 Exposure to SARS-CoV-2 (event) Not sure [facility] Start: 11-06-2021 Tobacco smoking stat us NHIS Unknown if ever smoked [facility] Work Phone: Start: 04-18-2020 None [facility] Start: 08-28-2020 Spouse/ Signif icant Other [facility] Start: 09-26-2020 Non-smoker [facility] Start: 1935 Sex Assigned At Male A [facility] History of tobacco use Current smoker [facility] Start: 12-06-2022 End: 11-26-2024 Tobacco use panel [facility] Work Phone: Adult Depression Screening Assessment 0 [facility] Work Phone: Start: 08-28-2024 End: 11-22-2024 Tobacco smoking status NHIS Never smoked tobacco (finding) [facility] Has the [employer], [employer], or [employer] threatened to shut off services in your home in past 12Mo No [facility] Work Phone: (I/We) worried wheth er (my/our) food would run out before (I/we) got money to buy more. Never true [facility] Medical Equipment Procedure Code Equipment Code Equipment [...] above or below knee FDA Start: 08-29-2024 [id number], [id number], [id number], [id number], [id number], [id number], [id number], [id number] Start: 09-06-2011 End: 10-27-2022 Comment on above: Test blood sugar(s) 2x daily. Dx E11.65. Insulin: No. Test blood sugar(s) 2x daily. Dx: E11.65. Insulin: No Use one needle for e ach dose. 1x/day. 1 Each once daily. Test blood sugar(s) 2 times daily. Dx: Type 2 DM -E11.65 Insulin: No [id number], [id number], [id number] , [id number] FDA Start: 04-28-2017 Comment on above: True Metrix Lancets. Test blood sugar(s) 2x daily. Dx: E11.65. Insulin: No True Metrix Test Str ips. Test blood sugar(s) 2x daily. Dx: E11.65. Insulin: No Goals Date Patient Goal Desired Activity /State Functional Status Date Assessment Result Facility 11-28-2024 Are you deaf, or do you have serious difficulty hearing No 11/28/2024 11:21 AM Danilo Rankin RN No [facility] 11-28-2024 Are you blind, or do you have serious difficulty seeing, even when wearing glasses No 11/28/2024 11:21 AM Danilo Rankin RN No [facility] 11-28-2024 Do you have serious difficulty walking or climbing stairs Yes 11/28/2024 11:21 AM Danilo Rankin, ISABEL Yes [facility] 11-28-2024 Do you have difficul ty dressing or bathing No 11/28/2024 11:21 AM Danilo Rankin RN No [facility] 11-28-2024 Because of a physica l, mental, or emotional condition, do you have difficulty doing errands alone such as visiting a physician's office or shopping Yes 11/28/2024 11:21 AM Danilo Rankin RN Yes [facility] 09-04-2024 [facility]: 09-03-2024 [facility] Work [facility]: 07-20-2024 Functional status Bed[facility] Work Phone: 07-02-2024 Functional status [facility] Work Phone: 09-08-2023 Functional Status Other: eye shield [facility] 09-08-2023 Functional Status Maintained [facility] 09-07-2023 Functional Status [facility] 09-26-2014 Are you deaf, or do you have serious difficulty hearing No 09/26/2014 8:15 AM Pooja Goins RN No [facility] 09-26-2014 Are you blind, or do you have serious difficulty seeing, even when wearing glasses No 09/26/2014 8:15 AM Pooja oGins RN No [facility] 09-26-2014 Do you have serious difficulty walking or climbing stairs No 09/26/2014 8:15 AM Pooja Goins RN No [facility] 09-26-2014 Do you have difficul ty dressing or bathing No 09/26/2014 8:15 AM Pooja Gonis RN No [facility] 09-26-2014 Because of a physica l, mental, or emotional condition, do you have difficulty doing errands alone such as visiting a physician's office or shopping No 09/26/2014 8:15 AM Pooja Goins RN No [facility] Mental Status Date Assessment Result Facility 11-28-2024 Because of a physica l, mental, or emotional condition, do you have serious difficulty concentrating, remembering, or making decisions Yes 11/28/2024 11:21 AM EDT Danilo Nesbitt, ISABEL Yes [facility] 11-22-2024 Cognitive function Voice/Name [facility] Work Phone: 09-04-2024 Cognitive function Voice/Name [facility] Work Phone: 07-20-2024 Cognitive function Voice/Name [facility] Work Phone: 07-07-2024 Cognitive function Voice/Name [facility] Work Phone: 07-03-2024 Cognitive function Follows Commands;Drows y [facility] Work Phone: 07-02-2024 Cognitive function Appropriate;Cooperativ e [facility] Work Phone: 06-06-2024 Cognitive function Drowsy [facility] Work Phone: 06-06-2024 Cognitive function Voice/Name [facility] Work Phone: 09-08-2023 Mental Status [facility]ed [facility] 09-26-2014 Because of a physica l, mental, or emotional condition, do you have serious difficulty concentrating, remembering, or making decisions No 09/26/2014 8:15 AM EDT Pooja Rai RN No [facility] Clinical Notes 12-19-2015 to 12-11-2024 Telephone Encounter - Ray Eagle TECHNOLOGIST - 12/11/2024 10:18 AM EDTTelephone Encounter - Ray Eagle TECHNOLOGIST - 12/11/2024 10:18 AM EDT Note Date & Type Note Facility 12-11-2024 Telephone encount er Note Post Implant follow up call: Date: 12/11/2024 Name: Perla Thompson Is your incision: Red: No Open: No Swollen: No Draining: No Steri Strips: fell off If the device is an ICD, have you received any shocks: N/A Have you received your temporary or permanent ID card: Yes Do you have your f/u appointment: Yes Appointments for Next 60 Days Date Time Provider Location Dept Phone 01/08/2025 10:30 AM DEVICE [facility] [phone] Any scheduling issues:Yes, Spoke with patients daughter she stated if her dad could follow up locally she would call and cancel appointment with [facility]. Questions moving forward: No TECHNOLOGIST Anaid [facility] 12-11-2024 Miscellaneous Notes Formattin g of this note is different from the original. Post Implant follow up call: Date: 12/11/2024 Name: Perla Thompson Is your incision: Red: No Open: No Swollen: No Draining: No Steri Strips: fell off If the device is an ICD, have you received any shocks: N/A Have you received your temporary or permanent ID card: Yes Do you have your f/u appointment: Yes Appointments for Next 60 Days Date Time Provider Location Dept Phone 01/08/2025 10:30 AM DEVICE [facility] [phone] Any scheduling issues:Yes, Spoke with patients daughter she stated if her dad could follow up locally she would call and cancel appointment with [facility]. Questions moving forward: No Ray Eagle TECHNOLOGIST documented in this encounter [facility] 11-27-2024 Note [facility] 11-26-2024 Note [facility] 11-26-2024 Note [facility] 11-26-2024 Note [facility] 11-25-2024 Note [facility] 11-25-2024 Note [facility] 11-24-2024 Note [facility] 11-24-2024 Note [facility] 11-24-2024 Note [facility] 11-23-2024 Note [facility] 11-23-2024 Note [facility] 11-23-2024 Note [facility] 11-22-2024 Radiology Diagnostic study note [facility] 11-09-2024 Discharge summary Note Date/Time November 08, 2024 11:39pm [facility] Medical Records Department [address] [place] [address] Emergency Department Summary 11/08/24 MR#: [id number] Acct: [id number] Name: PERLA THOMPSON Rep #:[id number] : 1935 89 From: Max Ayers PCP: Dr. Nando Wiggins MD Status:R EG ER Location: ED HPI <KRISTOFER Taylor - Last Filed: 11/08/24 22:12> HPI - Fall History of Present Illness Chief Complaint: Fall Narrative Narrative: 89-year-old male with PMH of DM2, ESRD on HD, A-fib on Eliquis, right BKA presents after a fall at his skilled nursing. He leaned forward and fell out of his wheelchair and struck his head on the ground. No LOC. He has a laceration on his nose and reports pain in the nose and eyebrow area. He states he does not really remember what happened but he feels fine now. No nausea or vomiting. No vision changes. Denies other injuries. 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 Wound, open, foot End stage renal disease MRSA (methicillin resistant staph aureus) culture positive Cutaneous abscess of right foot Diabetic infection of right foot Acute hyperkalemia Open wound Lives in skilled nursing Dietary restriction History of stress test History of echocardiogram Cardiology follow-up encounter History of atrial fibrillation Insulin dependent diabetes mellitus Other specified peripheral vascular diseases Type 2 diabetes mellitus with diabetic polyneuropathy Atherosclerosis of [place] artery of extremity with ulceration ESRD (end stage renal disease) Type 2 diabetes mellitus with foot ulcer Diabetes mellitus with diabetic 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 Pre-op testing Loose, teeth Wears glasses Cancer Dialysis patient Kidney disease Non-smoker Edema Syncope Chronic diastolic (congestive) heart failure (04/18/20) Paroxysmal atrial fibrillation Sinus bradycardia Type 2 diabetes mellitus Hyperkalemia Swelling of both lower extremities HLD (hyperlipidemia) Left bundle-branch block 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 Abnormal electrocardiogram Home Medications ?Medication ?Instructions ?Recorded ?Last Taken ?Type aspirin 81 mg tablet,delayed 81 mg PO DAILY heart heal th 07/01/20 08/28/24 History release (Adult Aspirin Regimen) torsemide 100 mg tablet 100 mg PO MOWEFR water pill 04/14/24 08/27/24 History insulin glargine 100 unit/mL (3 20 unit (0.2 mL) subcu t DINNER 04/24/24 08/28/24 Rx mL) subcutaneous pen diabetes 30 days #0 mL insulin lispro 100 unit/mL See Protocol subcut ACHS dm 05/04/24 08/28/24 History subcutaneous pen (Humalog KwikPen (U-100) Insulin) sennosides 8.6 mg-docusate sodium 1 tab-cap PO BID PRN PRN 06/04/24 06/05/24 History 50 mg tablet (Stimulant Laxative Constipation Plus) acetaminophen 325 mg tablet 650 mg PO Q8H PRN PRN Pain 1-10 Or 07/13/24 Unknown History Fever >100.7 cholecalciferol (vitamin D3) 125 125 mcg PO DAILY SUPP LEMENT 07/13/24 08/28/24 History mcg (5,000 unit) capsule insulin lispro 100 unit/mL 10 unit subcut TID DIABETES 07/13/24 08/28/24 History subcutaneous pen albuterol sulfate 2.5 mg/3 mL 2.5 mg (3 mL) inhalation Q2H PRN 07/20/24 Unknown Rx (0.083 %) solution for nebulization PRN SOB &/OR WHEEZ ING #0 mL benzocaine 15 mg-menthol 3.6 mg 2 mariaa mucous membrane Q2H PRN PRN 07/20/24 Unknown Rx lozenges (Sore Throat (benzocaine sore throat #0 ea with menthol)) menthol 0.44 %-zinc oxide 20.6 % 1 applic topical BID SKIN 07/20/24 08/28/24 Rx topical ointment (Calmoseptine) IRRITATION #0 grams nut.tx.gluc.intol,lac-free,soy 240 ml PO DAILY PRN SUP PLEMENT 10/29/24 Unknown History (Glucerna oral liquid) apixaban 2.5 mg tablet (Eliquis) 2.5 mg PO BID #180 ta bs 10/30/24 Unknown Rx Allergy/AdvReac Type Severity Reaction Status Date / Time pioglitazone (From Actos) Allergy fatigue Verified 11/08/24 19:39 simvastatin (From Zocor) Allergy myalgia Verified 11/08/24 19:39 sitagliptin (From Januvia) Allergy unknown Verified 11/08/24 19:39 Family History Mother Hypertension Father Diabetes COPD (chronic obstructive pulmonary disease) Surgical History Hx of amputation History of incision and drainage Hx of foot surgery History of cataract extraction History of ligation of vein History of arteriovenostomy for renal dialysis History of inguinal hernia repair History of appendectomy Social History housing: skilled nursing current occupational status: retired Smoking Status: Never smoker alcohol intake: never substance use type: does not use caffeine: Yes Type: coffee Number of servings: 1 what type of physical activity do you participate in: none seatbelt use: always do you feel safe at home: Yes ROS <KRISTOFER Taylor - Last Filed: 11/08/24 22:12> ROS ED ROS Narrative Constitutional: Negative for fever, chills, malaise. CVS: Negative for chest pain, syncope. Respiratory: Negative for shortness of breath. GI: Negative for nausea, vomiting. Neuro: Negative for headache. EXAM <KRISTOFER Taylor - Last Filed: 11/08/24 22:12> Physical Exam Narrative Exam Narrative: CONST: Patient sitting in no acute distress. EYES: Normal inspection. PERRL, EOMI. HEAD: 1 cm horizontal superficial laceration on the top of the bridge of the nose with no active bleeding. No deformity or crepitus. No raccoon eyes or [place] sign, no nasal hematoma or epistaxis, no hemotympanum, no CSF otorrhea orrhinorrhea. NECK: Normal inspection. No midline spinal tenderness, no step off or crepitus. RESP: No respiratory distress, CTAB. Chest wall nontender. CVS: Regular rate and rhythm, no murmur, no gallop. ABD: Soft and nontender, no guarding or rebound, nondistended. EXTREMITIES: Normal appearance, small skin tear right hand between the 4th and 5th finger. Right leg amputation below the knee. NEURO: Alert to self, place, year and situation. Answers questions appropriately. PSYCH: Normal affect. Const Vital Signs: 11/08/24 19:36 11/08/24 19:39 11/08/24 21:36 Temperature 98.6 F Temperature Source Oral Pulse Rate 54 L 70 Respiratory Rate 16 18 Respiratory Effort Normal Non-Labored Respiratory Depth Normal Respiratory Pattern Normal Blood Pressure 113/67 138/74 H Blood Pressure Mean 82 95 Pulse Ox 98 96 98 Oxygen Delivery Method Room Air Room Air 11/08/24 22:11 11/08/24 23:00 Temperature 97.6 F L Temperature Source Pulse Rate 70 51 L Respiratory Rate 18 Respiratory Effort Respiratory Depth Respiratory Pattern Blood Pressure 138/74 H 101/38 L Blood Pressure Mean 95 59 Pulse Ox 98 94 Oxygen Delivery Method Room Air <Dr. Max Roberts DO - Last Filed: 11/08/24 23:39> Physical Exam Const Vital Signs: 11/08/24 19:36 11/08/24 19:39 11/08/24 21:36 Temperature 98.6 F Temperature Source Oral Pulse Rate 54 L 70 Respiratory Rate 16 18 Respiratory Effort Normal Non-Labored Respiratory Depth Normal Respiratory Pattern Normal Blood Pressure 113/67 138/74 H Blood Pressure Mean 82 95 Pulse Ox 98 96 98 Oxygen Delivery Method Room Air Room Air 11/08/24 22:11 11/08/24 23:00 Temperature 97.6 F L Temperature Source Pulse Rate 70 51 L Respiratory Rate 18 Respiratory Effort Respiratory Depth Respiratory Pattern Blood Pressure 138/74 H 101/38 L Blood Pressure Mean 95 59 Pulse Ox 98 94 Oxygen Delivery Method Room Air MDM <KRISTOFER Taylor - Last Filed: 11/08/24 22:12> [facility] MDM Narrative Medical decision making narrative: History gathered from: Patient, EMS, family Differential includes closed head injury, intracranial hemorrhage, skull fracture 89-year-old male fell forward out of his wheelchair at his SNF and struck his head on the ground. No LOC. He has history of A-fib and is on Eliquis 2.5 mg twice daily. He is awake alert no distress. GCS 15. Vital stable. There is asuperficial laceration on the bridge of his nose. He has no bony tenderness or deformity or crepitus. No nasal septal hematoma or epistaxis or signs of basilar skull fracture. Chest pain CT scan of the brain is negative. The attending reevaluated the patient after negative CT scan results. Family is at bedside and states he complained of left foot pain so an x-ray was obtained and is negative. His small wounds on the nasal bridge and right hand do not requirerepair and were cleansed and dressed. He he was discharged back to his SNF in stable condition. History & Record Review Discussion w/independent historian: Patient and Family Radiography Diagnostic Testing: Clinical Impression(s) from Imaging Studies Brain CT 11/08/24 19:51 IMPRESSION: No acute intracranial abnormalities. Reading Location: [place] [address] Foot X-Ray 11/08/24 21:20 IMPRESSION: No acute fracture is appreciated. Other abnormalities as detailed above. Reading Location: [facility] ED attending interpretation of left foot shows no acute fracture or dislocation. <Dr. Max Roberts, DO - Last Filed: 11/08/24 23:39> MDM Radiography Diagnostic Testing: Clinical Impression(s) from Imaging Studies Brain CT 11/08/24 19:51 IMPRESSION: No acute intracranial abnormalities. Reading Location: [place] [address] Foot X-Ray 11/08/24 21:20 IMPRESSION: No acute fracture is appreciated. Other abnormalities as detailed above. Reading Location: [facility] Treatment and Re-Evaluation Narrative: Attending note: I have personally performed a face to face assessment of the patient and have reviewed the MANI note. I personally made/approved the management plan and take responsibility for the patient management. I performeda substantive portion of the visit including all aspects of the following. My figueroa findings include: Sent from [facility] facility fall out of his recliner. Normally wheelchair-bound. On Eliquis for paroxysmal A-fib from paperwork. Family presents baseline. Exam GCS 15 abrasion to his nasal no active bleeding there is dried blood. Skin tear to his right hand with no bony pain. Left foot tenderness midfoot area skin was intact. Initial CT brain negative. X-ray added to his foot tenderness also negative. Abrasions was cleansed by nursing and dressing placed. Patient discharged back to facility. Discharge Plan Triage Chief Complaint: Fall ED Midlevel Provider: Xena Zimmer ED Provider: Max Roberts Dx/Rx/DC Orders Clinical Impression: Fall, Closed head injury, Laceration of nose, Skin tear of right hand without complication Instructions: ED Head Injury (Adult) Prescriptions: No Action torsemide 100 mg tablet 100 mg PO MOWEFR Patient Comments: on non-dialysis days insulin glargine 100 unit/mL (3 mL) insulin pen 20 unit SC DINNER 30 Days Qty: 0 0RF Rx Instructions: Hold if glucose less than 130 mg/dl cholecalciferol (vitamin D3) 125 mcg (5,000 unit) capsule 125 mcg PO DAILY insulin lispro 100 unit/mL insulin pen 10 unit subcut TID Patient Comments: BEFORE MEALS acetaminophen 325 mg Tablet 650 mg PO Q8H PRN PRN (Reason: Pain 1-10 Or Fever >100.7) albuterol sulfate 2.5 mg /3 mL (0.083 %) Solution For Nebulization 2.5 mg inhalation Q2H PRN PRN (Reason: SOB &/OR WHEEZING) Qty: 0 0RF Sore Throat (benzocaine-menth) 15-3.6 mg Lozenge 2 mariaa mucous membrane Q2H PRN PRN (Reason: sore throat) Qty: 0 0RF menthol-zinc oxide [Calmoseptine] 0.44-20.6 % Ointment 1 applic topical BID Qty: 0 0RF Protocol: *Topical Application Instructions APPLICATION INSTRUCTIONS: apply to buttocks insulin lispro [Humalog KwikPen Insulin] 100 unit/mL Insulin Pen See Protocol subcut ACHS Protocol: 3. Sliding Scale Insulin Med Dosing Condition: 150-189 mg/dl = 1 unit Condition: 190-229 mg/dl = 2 units Condition: 230-269 mg/dl = 3 units Condition: 270-309 mg/dl = 4 units Condition: 310-349 mg/dl = 5 units Condition: 350-399 mg/dl = 6 units Condition: 400-449 mg/dl = 7 units Condition: Greater than 449 call physician Protocol Text: Suggested for: - Patients on Total Daily Insulin Dose of 37-55 units - Obese, infected, or steroid patients MEDIUM DOSING ALGORITHIM Rx Instructions: 150-189 1 unit,190-229 2 unit, 230-269 3 unit, 270-309 4 unit, 310-349 5 unit, 350-399 6 unit, 400-449 7 unit, 450-500 call physicion sennosides-docusate sodium [Stimulant Laxative Plus] 8.6-50 mg Tablet 1 tab-cap PO BID PRN PRN (Reason: Constipation) Glucerna Liquid 240 ml PO DAILY PRN (Reason: SUPPLEMENT) aspirin [Adult Aspirin Regimen] 81 mg tablet,delayed release (DR/EC) 81 mg PO DAILY Eliquis 2.5 mg tablet 2.5 mg PO BID Qty: 180 3RF Primary Care Provider: Nando Wiggins Referrals: Nando Wiggins MD [Primary Care Provider] - Activity Restrictions/Additional Instructions: CT scan of the brain showed no broken bones or internal bleeding. Give Tylenol as needed. Keep the small nasal wound clean. If symptoms worsen such as a severe headache, vomiting, confusion please return to the ER. Print Language: Prydeinig Disposition Disposition: Home, Self Care What to do if you have Problems For any increased pain, shortness of breath, bleeding, nausea or vomiting, chestpain, or any unexpected problems, contact your Primary Care Provider. Call [facility] ([phone]) or report to the closest Emergency Room. Call 911 if necessary. 11/08/24 2339 <Electronically signed by Max Ayers> Cosigner Signature (if applicable): 11/08/24 2212 <Electronically signed by Xena MINER> CC: Dr. Nando Wiggins MD ~ Signed [facility] Work Phone: 1(487) 366-276206-19-2025 Radiology Diagnostic study [facility]06-19-2025 Radiology Diagnostic study [facility]05-05-2025 Progress note Author Randal Damico [facility] Note Date/Time September 24, 2024 11:03a [facility] Medical Records Department [address] [place] [address] Progress Note - Surgery 09/24/24 1101 MR#: [id number] Acct: [id number] Name: PERLA THOMPSON Rep #:[id number] : 1935 89 From: Randal Damico MD [...] encounter PLAN: Continue ABD for padding Continue [employer]ward [employer] splint for knee extension and plan for stump forming with [place] eventual prosthesis at likely 3 months Plan from vascular is to follow-up in 2 weeks for staple removal. Agree with plan. Patient is not having any residual limb pain or phantom limb pain. Follow-up asneeded. 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 inactive August 29, 2024 1:06pm Wound, open, foot inactive August 292024 1:06pm Amputation of right lower extremity below knee acute September 24 9:58am Amputation of right lower extremity below knee acute October 03, 2 025 8:55am End stage renal disease acute M 2024 8:55am Amputation of right lower extremity below knee acute October 17, 2 025 10:05am AV fistula acute October 17, 2024 10:05am Chronic diastolic (congestive) heart failure April 18, 2020 chronic J une 2024 9:45am Essential (primary) hypertension chronic October 29, 2024 9:45am Sinus bradycardia chronic October 9:45am [facility] Work Phone: 1(289) 593-340902-28-2025 [facility]02-21-2025 Evaluation note* Diagnosis Onset Date Resolution Status Admit Date End stage renal disease acute F ebruary 2024 5:48pm MRSA bacteremia acute July 13, 2024 5:48pm Cellulitis of right foot resolved July 13, 2024 5:48pm Cellulitis of right lower limb resolved July 13, 2 025 5:48pm Diabetic infection of right foot inactive July 13, 2 025 5:48pm Osteomyelitis of right foot resolved July 13, 2024 5:48pm Pain in right foot resolved 2024 5:48pm Chronic osteomyelitis of right foot inactive July 13, 2 [...] chronic August 29, 2024 1:06pm 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 Thank you for the update. Let us know when discharged and we will see him back in the office 1-2 weeks after. * Pham Walker MA - 07/11/2024 2:35 PM EST [...] to PCP office HCC related Navigation Signature: Pham Walker MA July 11, 2024 2:35 PM documented in this encounterPremier [facility]02-19-2025 [facility]-2025 Telephone encounter Note* Telephone Encounter - Radha [...] RAY Roach July 09, 2024 11:51 AM [facility]02-17-2025 Miscellaneous Notes* Telephone Encounter - Radha Howe [...] 09, 2024 11:51 AM documented in this encounterPremier Health02-10-2025 [facility]02-10-2025 Evaluation note* Diagnosis Onset Date Resolution [...] chronic August 29, 2024 1:06pm 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 inactive [...] AV fistula acute October 17, 2024 10:05am [facility] Work Phone: 1(206) 620-209901-29-2025 Evaluation note* Diagnosis Onset Date Resolution Status Admit Date Diabetic ulcer of left foot acute June 20, 2024 8:25am PAD (peripheral artery disease) acute June 20 8:25am Status post transmetatarsal amputation of right foot acute June 20, 2024 8:25am Diabetic ulcer of right foot noneact [place] June 20, 2024 8:25am End stage renal disease acute F ebary 2024 12:56pm Acute hyperkalemia inactive 2024 12:56pm [...] chronic August 29, 2024 1:06pm 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 inactive August 29, 2024 1:06pm Wound, open, foot inactive August 292024 1:06pm Amputation of right lower extremity below knee acute September 24 9:58am [facility] Work Phone: 1(593) 102-168801-15-2025 Evaluation note* Diagnosis Onset Date Resolution Status [...] 2024 5:48pm Pain in right foot resolved Februa 2024 5:48pm Chronic osteomyelitis of rig ht [...] chronic August 29, 2024 1:06pm 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 If they do we can open a new TE. [facility]01-14-2025 Miscellaneous Notes* Telephone Encounter - Catalina Ruth [...] that Cardiology Dr. Yunior Tong from the [facility] has signed off on medical clearance and will be faxing forms to Dr. Cat office for review for clearance(He also faxed these to the [facility]). Son in law Jey made aware that POA paperwork is still not in the computer and needs to be brought in to discuss patients medical. Jey will d rop off tomorrow. Paperwork received, placed on PCP [...] homes Dr. Hang elias. Deborah Bedoya LPN * Telephone Encounter - [...] - 05/30/2024 10:55 AM EST Phoned patients sonJey back to advise if patient is at [facility] and on a skilled unit under Dr Wiggins's care we recommend she fill the clearance form out. Jey explained that Dr Wiggins rounds on Tuesday mornings when patient is at the wound clinic for his weekly debridments. Explained to son that wetypically need to obtain labs and EKG and patient would need to be seen in office. He stated patient has a dip tanker and wondered if they sign off if [...] avaoid using the ER for amputation but corset fitter has advised that would be easier than getting the clearance. Please advise. Alanna Veloz LPN * Telephone Encounter - Catalina Ruth RN - 05/30/2024 10:35 AM EST Jey Pts son in law called in and reports [facility] is [facility] in a [facility]. He [facility] big toe and the ball of his foot in April at the ER. He states they want to remove the rest of the toes as soon as they can, but they don't want to have to do it in the ER. He states that dental insurance coordinator for this provider is going to be sending over a surgical release for for the providers office to sign. Pt was last seen by Lauren Podlogar KITCHEN FOOD SERVER on 03/28/24, he had an A1C and CMP done. I don't know if Pt would been to come in and be seen again before forms could be signed. Forms are going to be sent to office Attn: Marilia. Please call and advise if anything else will need to be done. documented in this encounterPremier Health01-09-2025 Telephone encounter Note * Telephone Encounter - [...] triage nurse the ok/information. Alanna Veloz LPN [facility]01-09-2025 Telephone encounter Note* Telephone Encounter - Husam [...] need to see him in our office. [facility]01-09-2025 Telephone encounter Note* Telephone Encounter - Mary Hodges LPN - 05/31/2024 11:41 AM EST Son dropped off copies of POA and Living Will forms at this time. Mary Hodges LPN [facility]01-08-2025 Telephone encounter Note* Telephone Encounter - Deborah Bedoya LPN - 05/30/2024 4:52 PM EST Son in law calling in to advise office that Cardiology Dr. Yunior Tong from the [facility] has signed off on medical clearance and will be faxing forms to Dr. Cat office for review for clearance(He also faxed these to the [facility] clinic). Son in law Jey made aware that POA paperwork is still not in the computer and needs to be brought in to discuss patients medical. Jey will d rop off tomorrow. Paperwork received, placed on PCP desk for review. Jey requesting call back tomorrow from Alanna after PCP reviews paperwork. Deborah Bedoya LPN [facility]01-08-2025 Telephone encounter Note* Telephone Encounter - Deborah Bedoya LPN - 05/30/2024 1:51 PM EST Telephone call placed to patients son in law Khanna. Made aware patient would need to be seen in office or could utilize nursing homes Dr. Baptistes understanding. Deborah Bedoya LPN [facility]01-08-2025 Telephone encounter Note* Telephone Encounter - Husam Yan MD - 05/30/2024 11:13 AM EST If he is a resident at the skilled nursing, it would be most convenient for the patient to have Dr. Wiggins do his pre op there. If they are unable or unwilling, he would need OV with us before I could clear him. [facility]01-08-2025 Telephone encounter Note* Telephone Encounter - Alanna Veloz LPN - 05/30/2024 10:55 AM EST Phoned patients son, Jey back to advise if patient is at [facility] and on a skilled unit under Dr Wiggins's care we recommend she fill the clearance form out. Jey explained that Dr Wiggins rounds on Tuesday mornings when patient is at the wound clinic for his weekly debridments. Explained to son that wetypically need to obtain labs and EKG and patient would need to be seen in office. He stated patient has a dip tanker and wondered if they sign off if [...] avaoid using the ER for amputation but corset fitter has advised that would be easier than getting the clearance. Please advise. Alanna Veloz LPN [facility]01-08-2025 Telephone encounter Note* Telephone Encounter - Catalina Ruth RN - 05/30/2024 10:35 AM EST Jey Pts son in law called in and reports Pt is now in a [facility]. He [facility] big toe and the ball of his foot in April at the ER. He states they want to remove the rest of the toes as soon as they can, but they don't want to have to do it in the ER. He states that dental insurance coordinator for this provider is going to be sending over a surgical release for for the providers office to sign. Pt was last seen by Lauren Podlogar KITCHEN FOOD SERVER on 03/28/24, he had an A1C and CMP done. I don't know if Pt would been to come in and be seen again before forms could be signed. Forms are going to be sent to office Attn: Marilia. Please call and advise if anything else will need to be done. [facility]12-19-2024 [facility]12-13-2024 [facility]12-03-2024 [facility]12-02-2024 Note [facility]12-02-2024 History of Present illness Narrative* Sridevi [...] 23, 2024 2:35 PM documented in this encounterPremier Health11-26-2024 Telephone encounter Note * Telephone Encounter - Mayela Hopson LPN - 04/17/2024 12:51 PM EST noted. [facility]11-26-2024 Miscellaneous Notes* Telephone Encounter - Mayela Hopson [...] below. She said her father is in [facility] with a fott infection right now. She will update you when she can. * Telephone Encounter - Lauren Arzola APRN.CNP - 04/16/2024 7:08 AM EST Update me Tuesday with readings. Lauren Arzola APRN.CNP * Telephone Encounter - Mayela Hopson LPN - 04/13/2024 2:47 PM EST Phoned daughter Norah and went over notes from Lauren Arzola KITCHEN FOOD SERVER with understanding. Norah said father would not [...] are getting much better. Lauren Arzola APRN.LUZ * Telephone Encounter - Mayela Hopson LPN - 04/13/2024 2:31 PM EST Patient daughter Norah calling fathers blood sugar average is 306. She said he is not very active, his activity is going to dialysis 3 times a week. His Lantus is 33 units daily. Please advise documented in this encounterPremier Health11-25-2024 Telephone encounter Note * Telephone Encounter - aLuren Arzola APRN.CNP - 04/16/2024 9:19 AM EST Okay. Possible why his sugars have bee elevated as well. Lauren Arzola APRN.CNP [facility]11-25-2024 Telephone encounter Note* Telephone Encounter - Mayela Hopson LPN - 04/16/2024 9:08 AM EST Phoned Norah and went over notes below. She said her father is in [facility] with a fott infection right now. She will update you when she can. [facility]11-25-2024 [facility]11-25-2024 Telephone encounter Note* Telephone Encounter - Lauren Arzola APRN.CNP - 04/16/2024 7:08 AM EST Update me Tuesday with readings. Lauren Arzola APRN.CNP [facility]11-23-2024 [facility]11-23-2024 History of Present illness Narrative* Usman Quesada APRN.CNP - 04/14/2024 10:15 AM EST Family [...] distress and family will self transport to [place] emergency department documented in this encounterPremier Health11-22-2024 Telephone encounter Note * Telephone Encounter - Mayela Hopson LPN - 04/13/2024 2:47 PM EST Phoned daughter Norah and went over notes from Lauren Arzola KITCHEN FOOD SERVER with understanding. Norah said father would not like to see pharmacist, she will try the increase in Lantus. [facility]11-22-2024 Telephone encounter Note* Telephone Encounter - Lauren Arzola APRN.CNP - 04/13/2024 2:36 PM EST Increase Lantus to 37 units daily. Would he be willing to talk with our clinical pharmacist to helpwith managing his diabetic medications as it doesn't seem we are getting much better. Lauren Arzola APRN.CNP [facility]11-22-2024 Telephone encounter Note* Telephone Encounter - Mayela Hopson LPN - 04/13/2024 2:31 PM EST Patient daughter Norah calling fathers blood sugar average is 306. She said he is not very active, his activity is going to dialysis 3 times a week. His Lantus is 33 units daily. Please advise [facility]11-15-2024 Telephone encounter Note* Telephone Encounter - Deborah Bedoya LPN - 04/06/2024 8:18 AM EST Patients daughter Norah telephoned, she is medical POA and will be bringing in paperwork. Providers recommendations below given. Voices understanding. Deborah Bedoya LPN [facility]11-15-2024 Miscellaneous Notes* Telephone Encounter - Deborah Bedoya [...] EST Patient daughter Norah calling to give KITCHEN FOOD SERVER her father blood sugar average since increased [...] dates with separate readings. documented in this encounterPremier Health11-15-2024 Telephone encounter Note * Telephone Encounter - [...] sooner if getting lows. Lauren Arzola APRN.CNP [facility]11-14-2024 Telephone encounter Note* Telephone Encounter - Mayela Hopson LPN - 04/05/2024 11:15 AM EST Patient daughter Norah calling to give KITCHEN FOOD SERVER her father blood sugar average since increased [...] not give her dates with separate readings. [facility]11-06-2024 Instructions* Patient Instructions* Lauren Arzola APRN.CNP - 03/28/2024 1:09 PM EST Check blood sugars three times a day and as needed- update me in one week with readings, sooner if needed documented in this encounterPremier Health11-06-2024 [facility]Prom[facility]11-06-[facility] History of Present illness Narrative* Lauren Arzola APRN.CNP - 03/28/2024 12:55 PM EST 03/28/2024 Patient [...] changes, polyuria or polydipsia. Daughter concerned about anodiser giving him a diuretic She reports he [...] Outpatient Medications Medication Sig flash glucose sensor ([employer] Pharma[employer]YLE GELACIO 2 SENSOR) kit 2 Each four times daily. insulin glargine (LANTUS SOLOSTAR U-100 INSULIN) 100 unit/mL (3 mL) Inject 25 Units subcutaneously once daily. flash glucose scanning reader ([employer]YLE GELACIO 14 DAY READER) 1 Units four times daily. blood sugar diagnostic (BLOOD GLUCOSE TEST) test strip Test blood sugar(s) 2 times daily. Dx: Type 2 DM -E11.65 Insulin: No blood sugar diagnostic (ACCU-CHEK LISA PLUS TEST STRP) test strip Test blood sugar(s) 2x daily. DxE11.65. Insulin: No. mecobalamin (B12 ACTIVE ORAL) Take 1 tablet by mouth once daily. Every other day Insulin [place], Disposable, (BD ULTRA-FINE SHAHEEN PEN NEEDLE) 32 gauge x 32" Use one needle for each dose. 1x/day. [...] Units by mouth once daily. Blood-Glucose Meter [facility] Dispense 1 kit. Dx: [...] edema, without long-term current use of insulin ([facility]) - ICD9: 250.50, 362.05, 362.07, [...] daughter they need to discuss concerns with anodiser, verbalizes understanding Lauren Arzola APRN.LUZ Prescription instructions reviewed with [...] Level: 4 - Moderate documented in this encounterPremier Health08-16-2024 History of Present illness Narrative* Lauren Arzola CHAIR INSTALLER.DIRECT SUPPORT PROFESSIONAL - 01/06/2024 9:40 AM EDT 01/04/2024 Patient [...] week. Follows with Dr. 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 flash glucose sensor ([employer]YLE GELACIO 2 SENSOR) kit 2 Each four times daily. semaglutide (OZEMPIC) 0.25 mg or 0.5 mg(2 mg/1.5 mL) pen Inject 0.5 mg subcutaneously one time a week. semaglutide (OZEMPIC) 0.25 mg or 0.5 mg(2 mg/1.5 mL) pen Inject 0.5 mg subcutaneously one time a week. flash glucose scanning reader ([employer]YLE GELACIO 14 DAY READER) 1 Units four times daily. blood sugar diagnostic (BLOOD GLUCOSE TEST) test strip Test blood sugar(s) 2 times daily. Dx: Type 2 DM -E11.65 Insulin: No blood sugar diagnostic (ACCU-CHEK LISA PLUS TEST STRP) test strip Test blood sugar(s) 2x daily. DxE11.65. Insulin: No. mecobalamin (B12 ACTIVE ORAL) Take 1 tablet by mouth once daily. Every other day Insulin [place], Disposable, (BD ULTRA-FINE SHAHEEN PEN NEEDLE) 32 [...] Units by mouth once daily. Blood-Glucose Meter [facility] Dispense 1 kit. Dx: [...] done Advance Directive Discussion Never done Covid-19 Vaccine( season) due on 06/24/2023 Hepatitis B Vaccine(9 [...] Ozempic due to GI side effects - Ogorod GELACIO 2 SENSOR KIT - COMPREHENSIVE METABOLIC [...] Level: 4 - Moderate documented in this encounterPremier Health08-16-2024 NoteProm[facility]07-25-2024 Telephone encounter Note* Telephone Encounter - [place] Concepcion Hughes - 12/15/2023 4:28 PM EDT [...] Inject 25 Units subcutaneously once daily. Per Daughter, Ed told her father has no refills. It appears this prescription is good untilOctober. Please call daughter Norah Concepcion [place] [facility] December 15, 2023 4:29 PM [facility]07-25-2024 Miscellaneous Notes* Telephone Encounter - [place] Concepcion Hughes - 12/15/2023 4:28 PM EDT [...] Inject 25 Units subcutaneously once daily. Per Daughter, Ed told her father has no refills. It appears this prescription is good untilOctober. Please call daughter Norah Javier [place] Ray December 15, 2023 4:29 PM documented in this encounterPremier Health04-18-2024 Hospital Discharge instructions Patient Education 09/08/2023 14:39:24 [...] provider approves. General instructions Take or apply hsaf-ggs-foigwnz and prescription medicines only as told by [...] your health care provider. Take or apply vszu-oap-wvwqfvk and prescription medicines only as told by your health care provider. This includes any eye drops. This information is not intended to replace advice given to you by your health care provider. Make sure you discuss any questions you have with your health care provider. Document Released: 01/25/2012 Document Revised: 05/25/2019 Document Reviewed: 05/28/2019 Elsevier Patient Education 2019 [employer] Follow Up Care 09/06/2023 10:35:24 With:JEAN PIERRE ZIEGLER MD, [facility] Address: [address] [facility] [place] [address]- [phone] When: Unknown Comments:Follow-up as scheduled [facility] 04-18-2024 Summary of episode note Discharge Instructions Thank you for allowing [facility] to assist you with your healthcare needs. The following is importantdischarge information regarding your hospital visit. What to do next Follow Up Appointments Follow Up with JEAN PIERRE ZIEGLER MD, [facility] When Why: Follow-up as scheduled Where: [address] [facility] [address]- [phone] The Following Activity and Diet Have Been [...] provider approves. General instructions Take or apply qgno-tvv-kwmnzls and prescription medicines only as told by [...] your health care provider. Take or apply zcut-ecp-hfegrfb and prescription medicines only as told by your health care provider. This includes any eye drops. This information is not intended to replace advice given to you by your health care provider. Make sure you discuss any questions you have with your health care provider. Document Released: 01/25/2012 Document Revised: 05/25/2019 Document Reviewed: 05/28/2019 ElseLandis+Gyr Patient Education 2020 [employer] Additional Information VACCINATE! IT SAVES LIVES! Members of the community who have not yet received the COVID-19 vaccine and would like to receive it can visit one of [facility] vaccine clinics. There are many vaccine clinic locations within the [facility]. For locations and available times, please visit [email or web address] It is important to note that some COVID mobile vaccine clinics are held outdoors and may be canceled in rainy or stormy conditions. To learn more about pediatric vaccinations (ages 5-11), we invite you to visit the [facility] webpage. [email or web address] [email or web address] learn more about the COVID-19 vaccine, we invite you to visit the CDC website for a list of frequently asked questions.https://www.cdc.gov/coronavirus/2019-ncov/vaccines/faq.html [facility] Patient Portal Access Instructions: Stay connected with your healthcare team and access your personal medical information anytime with the [facility] Patient Portal. Please follow the directions below to create your [facility] account: 1.Access the email account you provided upon registration to the hospital/physician office.2.Look for an invitation email from [facility].3.Open the email and access the invitation link: AcceptInvitation to [facility].4.Fill in the required meyers to create your account. To access your account, visit [email or web address] Wind Powerhart. Click the blue button labeled "Access Patient Portal" and then log in with the username and password that you created in the steps above. You will be able to view your test results, lab results, a summary of your visits, upcoming appointments and more. There is also a convenient messaging option where you can send secure messages to your p Protein Forestvider. In addition, you will have the ability to download any documents or summaries to your computer and/or send the information securely to a physician. Remember that your healthcare information is confidential, so carefully consider who you will allowto register on the [facility] Patient Portal for access to your information. You can also access the [facility] Patient Portal on the [facility] mani. Simply click on "Patient Portal" and then log into your account. If you would like to receive a full copy of your medical records, please contact the [facility] Medical Records Department by calling [phone], Tuesday through Tuesday between 8 a.m. and [...] Call your local pharmacy or go to http://bit.ly/2B6Py1m to find one close to you.3.Make use of household items: Use cat litter or old coffee grounds to dispose medications if other options arenot available. Mix your drugs with these household products, seal them in an airtight container andthrow it into the garbage. Call [facility]: [phone] to be sure your drugs can be [...] that I should contact my do ctor. Patient/Waste Machine Tender Signature: Date/Time: Relationship to Patient: Witness Name/Signature: Date/Time: [facility] [id number] Anesthesiology Consult note Patient: PERLA THOMPSON Age: [...] NIKKY AVENDANO MD on 09/08/2023 02:22 PM [facility] [id number] Anesthesiology Consult note Patient: PERLA THOMPSON Age: [...] Cataract extraction and implantation of intraocular lens ([id number]) on 09/05/2023 at 88 Years. Comments: 09/07/2023 8:24 ISABEL Marte RIGHT EYE Angioplasty ([id number]) in 2021 at 87 Years. Comments: 09/07/2023 10:11 ISABEL Marte LEFT UPPER EXTREMITY FISTULOGRA IWTH CUTTING BALLON ANGIOPLASTY Repair of inguinal hernia ([id number]). Comments: 09/07/2023 8:23 ISABEL Marte UNSURE OF LATERALITY, HAD IN THE LATE 1960'S OR EARLY 1970'S Extn - Extraction of tooth ([id number]). Comments: 09/07/2023 8:23 ISABEL Marte ALL TEETH REMOVED AV - Arteriovenous fistula ([id number]). Comments: 09/07/2023 10:06 ISABEL Marte LEFT ARM [...] Height 170.2 cm Admission Weight 98.7 kg [place] Body Weight 66.12 kg Type of Scale [...] Documentation reviewed: Current records. Assessment and Plan [place] [employer] Anesthesiologists (ASA) physical status classification: Class III. Anesthetic Preoperative Plan Premedication: intravenous. Anesthetic technique: General. Induction: intravenously. Maintenance airway: Oral endotracheal tube, RSI. Postoperative pain management: Per surgeon. Risks discussed: nausea, vomiting, headache, sore throat, dental injury, hypotension, allergic reaction, serious complications. Informed consent: signed by patient. Digitally Signed by JERMAINE SWANSON MD on 09/08/2023 12:14 PM [facility] [id number] Miscellaneous Notes* Telephone Encounter - Alanna Veloz [...] for a rx to be sent to [facility] please. Please advise documented in this encounterPremier Health03-18-2024 Miscellaneous Notes* Telephone Encounter - Deborah Bedoya [...] calling: self Call patient at: at home [phone] (home) [phone] (cell) Was an appointment scheduled: No Closing statement: Results or non-symptom based questions: Thank you for calling [facility], your call will be returned within the next business day. Demetra Hughes documented in this encounterPremier Health03-07-2024 Miscellaneous Notes* Telephone Encounter - Meredith Gonzalez, ISABEL - 07/28/2023 8:45 AM EST Date of [...] notify patient. Demetra Hughes documented in this encounterPremier Health02-21-2024 Miscellaneous Notes* Telephone Encounter - Valerie Burris LPN - 07/13/2023 8:14 AM EST Spoke to Norah, daughter and message given that short term prescription was sent to the pharmacy. Valerie Burris LPN * Telephone Encounter - Lauren Arzola APRN.CNP - 07/13/2023 6:58 AM EST New prescription sent to [facility] Lauren Arzola APRN.CNP * Telephone Encounter - Heike Lainez - 07/12/2023 8:44 AM EST Patient's daughter, Norah, said a mail order rx for Ozempic was sent in yesterday for this patient. Said patient is completely out of medication. Wants to know if a short term refill can be sent to [facility] in [place]. Do not cancel mail order rx. * Telephone Encounter - Heike Lainez - 07/12/2023 8:43 AM EST Patient has been identified by name and date of : Yes, Provider Yuriy Daughter, Norah phones for refill(s): Requested Prescriptions Pending Prescriptions Disp Refills semaglutide (OZEMPIC) 0.25 mg or 0.5 mg(2 mg/1.5 mL) pen Sig: Inject 0.5 mg subcutaneously one time a week. Date of last office visit in primary care: 05/25/2023 Date of next office visit in primary care: 09/23/2023 Please advise. Thank you. Heike Hughes. documented in this encounterPremier Health02-19-2024 Miscellaneous Notes* Telephone Encounter - Marina Huffman [...] visit in primary care: 09/23/2023 Patient using [facility] mail order please send new RX to [facility] has no refills Please advise. Thank you. Marina Anguiano. documented in this encounterPremier Health02-05-2024 History of Present illness Narrative* Danilo Martines [...] Objective: [facility] V[facility]: DP and PT pulses are nonpalpable [...] edema, without long-term current use of insulin ([facility]) (primary encounter diagnosis) (B35.1) Onychomycosis [...] Care Patient presents for diabetic foot care. [facility]- 07/15/21. Patient tried cutting some of his toenails last week. Clipped 1st and 2nd toe. Swelling to bilateral legs, using zip up compression stockings. documented in this encounterPremier Health02-05-2024 Instructions* Patient Instructions* Danilo Martines - 06/27/2023 [...] (or decreased sensation in your feet) a corset fitter should always cut your toenails. Be Careful [...] Go to your health care provider or corset fitter to treat these conditions. documented in this encounterPremier Health10-24-2023 Miscellaneous Notes* Telephone Encounter - Mayela Hopson LPN - 03/15/2023 9:56 AM EDT [facility] from [facility] requesting copy of immunization record for flu shot information be faxed to [phone]. Printed and faxed as requested. documented in this encounterPremier Health10-17-2023 Miscellaneous Notes* Telephone Encounter - Mayela Hopson [...] patient's mail order pharmacy. Please send to [facility]. documented in this encounterPremier Health10-05-2023 Miscellaneous Notes* Telephone Encounter - Margret Linares LPN - 02/24/2023 1:12 PM EDT Called the pharmacy and this was billed through insurance and picked up in 02/22/23. * Telephone Encounter - Margret Linares LPN - 02/24/2023 1:09 PM EDT PERLA THOMPSON (Figueroa: [id number]) Rx #: [id number] Ozempic (0.25 or 0.5 MG/DOSE) 2MG/3ML pen-injectors Form [employer] Electronic PA Form Created 3 days ago Sent to Plan 20 hours ago Plan Response 20 hours ago Submit Clinical Questions 20 hours ago Determination Favorable 1 hour ago Message from Plan PA Case: [id number], Status: Approved, Coverage Starts on: 02/24/2023 12:15:13 PM, Coverage Ends on: 02/24/2023 12:15:13 PM. Questions? Contact . documented in this encounterPremier Health08-15-2023 Telephone encounter Note * Telephone Encounter - [...] week. Please review and advise. Magaly Bhakta [facility]08-15-2023 Miscellaneous Notes* Telephone Encounter - Magaly Bhakta [...] and advise. Magaly Bhakta documented in this encounterPremier Health07-17-2023 Instructions* Patient Instructions* PodLauren johnson APRN.CNP - 12/06/2022 9:40 AM EDT WHAT YOU [...] review all the medicines you take, even kuhh-yjk-lybmfup medicines. As you get older, the way [...] have certain medical conditions. documented in this encounterPremier Health07-17-2023 History of Present illness Narrative* Lauren Arzola [...] months CKD: Follows up with Dr. Khoury [facility]. Has dialysis three times a week. Tolerating [...] 1 tablet by mouth once daily. Insulin Goldfield, Disposable, (BD ULTRA-FINE SHAHEEN PEN NEEDLE) 32 gauge x 32" Use one needle for each dose. 1x/day. [...] Units by mouth once daily. Blood-Glucose Meter [facility] Dispense 1 kit. Dx: [...] provided. - continue to use kostas Arzola APRN.LUZ Prescription instructions reviewed with patient [...] which included preparing to see the patient, vgjv-bk-xarh patient care, completing clinical documentation, obtaining and/or reviewing separately obtained history, performing a medically appropriate examination, counseling and educating the pat ient/family/caregiver, and ordering medications, tests, or procedures. documented in this encounterPremier Health06-26-2023 Miscellaneous Notes* Telephone Encounter - Liza Johnson [...] of Last Labs: 09/06/2022 documented in this encounterPremier Health06-15-2023 Miscellaneous Notes* Telephone Encounter - RAY Ruvalcaba - 11/04/2022 11:15 AM EDT Patient's daughter called back in, the test strips are called [employer], they would like these sent to [facility] [place]. Please review. RAY Ruvalcaba November 04, 2022 [...] testing strips to be sent to [facility]. Please review and advise, Liza Johnson RN documented in this encounterPremier Health06-07-2023 Miscellaneous Notes* Telephone Encounter - Harper Fisher [...] and advise. Harper Fisher documented in this encounterPremier Health04-17-2023 History of Present illness Narrative* Lauren Arzola APRN.LUZ - 09/06/2022 9:50 AM EDT 09/06/2022 Patient [...] dialysis CKD: Follows up with Dr. Khoury [facility]. Has dialysis three times a week. Tolerating [...] 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) Tues, Thalex, Sat Glaucoma Dr Jimenez LBBB (left [...] sugar(s) 2x daily. DxE11.65. Insulin: No. Insulin Goldfield, Disposable, (BD ULTRA-FINE SHAHEEN PEN NEEDLE) 32 [...] Units by mouth once daily. Blood-Glucose Meter [facility] Dispense 1 kit. Dx: [...] which included preparing to see the patient, zjye-um-xpqr patient care, completing clinical documentation, obtaining and/or reviewing separately obtained history, performing a medically appropriate examination, counseling and educating the pat ient/family/caregiver, and ordering medications, tests, or procedures. documented in this encounterPremier Health03-30-2023 Miscellaneous Notes* Telephone Encounter - Aimee Corey - 08/19/2022 10:15 AM EDT Patient has [...] Thank you. Aimee Nicole documented in this encounterPremier Health01-17-2023 Miscellaneous Notes* Telephone Encounter - Lauren Arzola APRN.CNP - 06/08/2022 10:10 AM EST Ozempic sent to mail order. Lauren Arzola APRN.LUZ * Telephone Encounter - Deborah Bedoya LPN - 06/08/2022 10:00 AM EST Patients daughter telephoned and notified of results and recommendations. Voices understanding. [facility] stated they wont have the ozempic until [...] will place referral order. documented in this encounterPremier Health01-16-2023 History of Present illness Narrative* Husam Yan [...] HISTORY Diagnosis Date Chronic diastolic heart failure ([facility]) Dr. Bacon ESRD (end stage renal disease) on dialysis ([facility]) Josh, Thai, Sat Glaucoma Dr Jimenez LBBB (left bundle branch block) Dr. Bacon Lower extremity edema Mobitz (type) I (Wenckebach's) atrioventricular block Onychomycosis Osteoarthritis knees Other and unspecified hyperlipidemia Proliferative diabetic retinopathy of both eyes with macular edema associated with type 2 diabetes mellitus ([facility]) moderate, left macular edema-Dr. Jimenez Type II [...] sugar(s) 2x daily. DxE11.65. Insulin: No. Insulin Goldfield, Disposable, (BD ULTRA-FINE SHAHEEN PEN NEEDLE) 32 [...] Units by mouth once daily. Blood-Glucose Meter [facility] Dispense 1 kit. Dx: [...] diet. Husam Yan MD documented in this encounterPremier Health10-24-2022 Miscellaneous Notes* Telephone Encounter - Yamel Roe Ma - 03/15/2022 11:00 AM EDT Call to Norah singh notified her of message below, verbalized understanding. [...] new regimen. If agreeable, will call in Novolog/[facility] to his pharmacy. Kidney function in ESRD range. Continue with dialysis. Cholesterol looks good. documented in this encounterPremier Health10-14-2022 History of Present illness Narrative* Husam Yan [...] dialysis 3 days per week at [facility] as directed. albumin was low on [...] left cephalic vein to radial artery anastomotic 4/2 powerflex angioplasty RPR 1ST INGUN HRNA AGE [...] sugar(s) 2x daily. DxE11.65. Insulin: No. Insulin Goldfield, Disposable, (BD ULTRA-FINE SHAHEEN PEN NEEDLE) 32 [...] Units by mouth once daily. Blood-Glucose Meter [facility] Dispense 1 kit. Dx: [...] edema, without long-term current use of insulin ([facility]) - ICD9: 250.50, 362.04, 362.07, ICD10: E11.3213 [...] vaccine - ICD9: V04.89, ICD10: Z23 - [facility] COVID-19 BIVALENT BOOSTER VACCINE, AGE 12+ YR Huasm Yan MD documented in this encounterPremier Health09-19-2022 Miscellaneous Notes* Telephone Encounter - Deborah Bedoya LPN - 02/08/2022 9:58 AM EDT Daughter Norah notified. Voices understanding. Deborah Bedoya LPN * Telephone Encounter - Lauren Arzola APRN.CNP - 02/08/2022 9:30 AM EDT He may take the tresiba as ordered- it is a long acting insulin. I will sent another prescription as requested by [facility]. Lauren Arzola APRN.LUZ * Telephone Encounter - Valerie Burris LPN - 02/08/2022 8:35 AM EDT Bernarda with [facility] called and they do cover Lantus and to send new rx to them today so they can fill for pt. Per Bernarda Pt was given a Generic from [employer]. Spoke with [employer] Pharmacist and Tresiba was given to the [...] Encounter - Lauren Arzola APRN.LUZ - 02/08/2022 8:21 AM EDT Please call and ask them what long acting insulin do they cover for this patient. Hehas been on Lantus. Have they changed what they cover? Please let daughter know [facility] What insulin did they receive from [facility]. Thanks, Lauren Arzola APRN.LUZ * Telephone Encounter - Concepcion Van Pss - 02/08/2022 8:09 AM EDT Daughter Norah is calling and she stated she needs to know what is going on because this was supposed to arrive from [employer]. Then a prescription went to [facility] and they filled something but it [...] on the Glargine U100 to fax # [phone]. She is asking to have it faxed back to them. documented in this encounterPremier Health09-13-2022 Miscellaneous Notes* Telephone Encounter - Alanna Veloz [...] ORDER RX REQUESTED ON 01/26/[address] [facility],PLEASE FILL THIS SOON POSSIBLE Patient aware RX will be sent to pharmacy. No need to notify patient. Marina Dee [facility] documented in this encounterPremier Health09-06-2022 Miscellaneous Notes* Telephone Encounter - Harper García [...] advise. Harper García Pss documented in this encounterPremier Health07-25-2022 Miscellaneous Notes* Telephone Encounter - Amirah Bee [...] 02/2022 Last refill: 02/2021 documented in this encounterPremier Health05-06-2022 Miscellaneous Notes* Telephone Encounter - Husam Yan MD - 09/25/2021 12:56 PM EDT Reviewed. * Telephone Encounter - Breanne Carvalho RN - 09/25/2021 12:42 PM EDT Daughter, Norah, returned call from pcp office. Reports patient received call also, but he won't return calls. Given provider's message below with verbalized understanding. Reports she will try to get patient to see anodiser, but doesn't think he will. Reports patient [...] week with his readings. 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 12/19/2015 04/26/2016 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 02/28/2020 Noncompliance with diet and medication regimen 1 06/17/2012 11/18/2016 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 04/07/2013 11/18/2016 Leg edema 07/14/2009 02/28/2020 documented as of this encounter (statuses as of 10/07/2021) [facility]07-29-2016 History of Past illness Narrative* Problem Noted Date Resolved Date 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 12/19/2015 04/26/2016 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 02/28/2020 Noncompliance with diet and medication regimen 1 06/17/2012 11/18/2016 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 04/07/2013 11/18/2016 Leg edema 07/14/2009 02/28/2020 documented as of this encounter (statuses as of 12/14/2021) [facility]-29-[facility] History of Past illness Narrative* Problem Noted Date Resolved Date 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 12/19/2015 04/26/2016 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 02/28/2020 Noncompliance with diet and medication regimen 1 06/17/2012 11/18/2016 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 04/07/2013 11/18/2016 Leg edema 07/14/2009 02/28/2020 documented as of this encounter (statuses as of 02/02/2022) [facility] History of Past illness Narrative* Problem Noted Date Resolved Date 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 12/19/2015 04/26/2016 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 02/28/2020 Noncompliance with diet and medication regimen 1 06/17/2012 11/18/2016 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 04/07/2013 11/18/2016 Leg edema 07/14/2009 02/28/2020 documented as of this encounter (statuses as of 02/08/2022) [facility] History of Past illness Narrative* Problem Noted Date Resolved Date 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 12/19/2015 04/26/2016 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 02/28/2020 Noncompliance with diet and medication regimen 1 06/17/2012 11/18/2016 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 04/07/2013 11/18/2016 Leg edema 07/14/2009 02/28/2020 documented as of this encounter (statuses as of 02/19/2022) [facility] History of Past illness Narrative* Problem Noted Date Resolved Date 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 12/19/2015 04/26/2016 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 02/28/2020 Noncompliance with diet and medication regimen 1 06/17/2012 11/18/2016 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 04/07/2013 11/18/2016 Leg edema 07/14/2009 02/28/2020 documented as of this encounter (statuses as of 03/10/2022) [facility] History of Past illness Narrative* Problem Noted Date Resolved Date 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 12/19/2015 04/26/2016 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 02/28/2020 Noncompliance with diet and medication regimen 1 06/17/2012 11/18/2016 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 04/07/2013 11/18/2016 Leg edema 07/14/2009 02/28/2020 documented as of this encounter (statuses as of 03/15/2022) [facility] History of Past illness Narrative* Problem Noted [...] of this encounter (statuses as of 06/07/2022) [facility] History of Past illness Narrative* Problem Noted [...] of this encounter (statuses as of 06/08/2022) [facility] History of Past illness Narrative* Problem Noted [...] of this encounter (statuses as of 08/19/2022) [facility] History of Past illness Narrative* Problem Noted [...] of this encounter (statuses as of 09/06/2022) [facility] History of Past illness Narrative* Problem Noted [...] of this encounter (statuses as of 10/28/2022) [facility] History of Past illness Narrative* Problem Noted [...] of this encounter (statuses as of 11/04/2022) [facility] History of Past illness Narrative* Problem Noted [...] of this encounter (statuses as of 11/15/2022) [facility] History of Past illness Narrative* Problem Noted [...] of this encounter (statuses as of 12/06/2022) [facility] History of Past illness Narrative* Problem Noted [...] of this encounter (statuses as of 02/26/2023) [facility] History of Past illness Narrative* Problem Noted [...] of this encounter (statuses as of 03/08/2023) [facility] History of Past illness Narrative* Problem Noted [...] of this encounter (statuses as of 03/15/2023) [facility] History of Past illness Narrative* Problem Noted [...] of this encounter (statuses as of 06/27/2023) [facility] History of Past illness Narrative* Problem Noted [...] of this encounter (statuses as of 07/11/2023) [facility] History of Past illness Narrative* Problem Noted [...] of this encounter (statuses as of 07/13/2023) [facility] History of Past illness Narrative* Problem Noted [...] of this encounter (statuses as of 07/28/2023) [facility] History of Past illness Narrative* Problem Noted [...] of this encounter (statuses as of 08/08/2023) [facility] History of Past illness Narrative* Problem Noted [...] of this encounter (statuses as of 09/07/2023) [facility] No data available for this section [facility] Evaluation note* Diagnosis Onset Date Resolution Status Problem with dialysis access acute Problem with dialysis access [facility] Work Phone: Evaluation note* Diagnosis 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 edema, without long-term current use of insulin (HCC) documented in this encounter [facility] note* Diagnosis 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 edema, without long-term current use of insulin (HCC) documented in this encounter [facility] note* Diagnosis 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 edema, without long-term current use of insulin (HCC) [facility]* Diagnosis 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 edema, without long-term current use of insulin ([facility]) documented in this encounter [facility]* Diagnosis 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 edema, without long-term current use of insulin ([facility])- Primary Essential hypertension Unspecified essential hypertension Mixed hyperlipidemia 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) End stage renal disease Need for COVID-19 vaccine documented in this encounter [facility]* Diagnosis 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, without long-term current use of insulin ([facility])- Primary Essential hypertension Unspecified essential [...] 5 chronic kidney disease on chronic dialysis ([facility]) 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 edema, with long-term current use of insulin ([facility]) documented in this encounter [facility] note* Diagnosis 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, without long-term current use of insulin ([facility]) documented in this encounter [facility] note* Diagnosis 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, without long-term current use of insulin ([facility]) documented in this encounter [facility]* Diagnosis 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, without long-term current use of insulin ([facility])- Primary 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) End stage renal disease Chronic diastolic heart failure (HCC) Chronic diastolic heart failure documented in this encounter [facility] note* Diagnosis 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 edema, without long-term current use of insulin ([facility]) documented [facility] this encounter [facility]* Diagnosis 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, without long-term current use of insulin ([facility]) documented in this encounter [facility]* Diagnosis 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, without long-term current use of insulin ([facility])- Primary Lower extremity edema Edema 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) End stage renal disease Chronic diastolic heart failure (HCC) Chronic diastolic heart failure Essential hypertension Unspecified essential hypertension 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 At high risk for falls Personal history of fall [facility]* Diagnosis 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, without long-term current use of insulin ([facility]) [facility]* Diagnosis 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 edema, without long-term current use of insulin ([facility])- Primary Onychomycosis Dermatophytosis of nail Left foot pain Pain in limb Right foot pain Pain in limb documented in this encounter [facility] note* Diagnosis 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, without long-term current use of insulin ([facility]) documented in this encounter [facility] note* Diagnosis 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, without long-term current use of insulin ([facility]) documented in this encounter [facility] note* Diagnosis 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 edema, with long-term current use of insulin ([facility]) documented in this encounter [facility] note* Diagnosis 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, without long-term current use of insulin ([facility]) documented in this encounter [facility]* Diagnosis 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 edema, with long-term current use of insulin ([facility])- Primary 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) End stage renal disease Chronic diastolic heart failure (HCC) Chronic diastolic heart failure 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 Lower extremity edema Edema Essential hypertension Unspecified essential hypertension Mixed hyperlipidemia [facility]* Diagnosis 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, without long-term current use of insulin ([facility]) [facility]* Diagnosis 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, acquired [facility]* Diagnosis 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, without long-term current use of insulin (HCC)- Primary 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) End stage renal disease [facility]* Diagnosis Right foot infection- Primary Unspecified local infection of skin and subcutaneous tissue [facility]* Diagnosis 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 Give Tylenol as needed. Keep the small nasal wound clean. If symptoms worsen such as a severe headache, vomiting, confusion please return to the ER.[facility] Work Phone: Reason for referral (narrative)* Diagnostic Procedure Only (Routine) - Closed Specialty Diagnoses / Procedures Referred By Tay aguilar Referred To Contact XR IMAGING Diagnoses Deformity of both feet Procedures XR FOOT GENERAL 3V AP/LAT/OBL BILAT X-RAY FOOT MINIMUM 3 VIEWS Husam Yan MD [address] [place] [address] [place] [id number] Referral ID Status Reason Start Date Expiration Date V isits Requested Visits Authorized [id number] Closed Auto-Generate d Referral 03/04/2021 04/03/2022 1 1 [facility] for referral (narrative)No reason for referral [facility] Work [facility]: Reason for visit Narrative* Diagnostic Procedure Only (Routine) - Closed Specialty Diagnoses / Procedures Referred By Contac t Referred To Contact XR IMAGING Diagnoses Deformity of both feet Procedures XR FOOT GENERAL 3V AP/LAT/OBL BILAT X-RAY FOOT MINIMUM 3 VIEWS Husam Yan MD [address] [facility] [place] [address] [place] [id number] Referral ID Status Reason Start Date Expiration Date V isits Requested Visits Authorized [id number] Closed Auto-Generate d Referral 03/04/2021 04/03/2022 1 1 [facility] Chief Complaint and Reason for Visit Chief Complaint L ARM DIALYSIS CATH LOW ADEQUECY LOW ACCESS FLOW DIALYSIS ACCESS COMPLICATION DIALYSIS ACCESS COMPLICATION Reason for Visit Problem with dialysi s access Problem with dialysis access Chief Complaint Admit Date SENIOR CARE LAB WORK June 06, 2024 5:00am 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 June 06, 2024 5:57am POST-OP EXAM June 06, 2024 2 :32pm LABWORK June 08, 2024 5 :00am SENIOR CARE LAB WORK June 11, 2024 5:00am LAB [...] 30am WOUND August 20, 2024 1:5 9pm SENIOR CARE LAB WORK August 27, 2024 4: 00am [...] 8:25am End stage renal disease July 02 025 12:56pm Acute hyperkalemia July 02, 2024 [...] 8:23am Osteomyelitis of right foot August 27 2 025 8:23am Wound, open, foot August 27, 2024 8:23 am 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 August 29, 2024 1:06pm End stage renal disease August 29, 2024 1:06pm Anemia of chronic disease August 29 1:06pm 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 August 29, 2024 1:06pm Wound, open, foot August 29, 2024 1:06 pm 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 September 24, 2024 9:58am Chief Complaint Admit Date SENIOR CARE LAB WORK June 06, 2024 5:00am 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 June 06, 2024 5:57am POST-OP EXAM June 06, 2024 2 :32pm LABWORK June 08, 2024 5 :00am SENIOR CARE LAB WORK June 11, 2024 5:00am LAB [...] 30am WOUND August 20, 2024 1:5 9pm SENIOR CARE LAB WORK August 27, 2024 4: 00am [...] 8:25am End stage renal disease July 02 025 12:56pm Acute hyperkalemia July 02, 2024 [...] chronic disease August 29 1:06pm 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 [...] 30am WOUND August 20, 2024 1:5 9pm SENIOR CARE LAB WORK August 27, 2024 4: 00am [...] 8:25am End stage renal disease July 02 025 12:56pm Acute hyperkalemia July 02, 2024 [...] 2024 5:48pm Diabetic infection of right foot Februar y 2024 5:48pm Osteomyelitis of right foot [...] chronic disease August 29 1:06pm 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 [...] 30am WOUND August 20, 2024 1:5 9pm SENIOR CARE LAB WORK August 27, 2024 4: 00am [...] Date End stage renal disease July 02 025 12:56pm Acute hyperkalemia July 02, 2024 12:56pm Other acute osteomyelitis, right ankle a nd foot July 11, 2024 10:30am Other specified peripheral vascular dise ases July 11, 2024 10:30am End stage renal disease July 13, 2 025 5:48pm MRSA bacteremia February 21st, 2025 5:48pm Cellulitis of right foot July 13, [...] chronic disease August 29 1:06pm 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 [...] 2024 10:05 am Chief Complaint Admit Date NEW CONCERN July 13, 2024 2:43pm CONCERN [...] 30am WOUND August 20, 2024 1:5 9pm SENIOR CARE LAB WORK August 27, 2024 4: 00am WOUND August 27, 2024 8:23 am WOUND August 27, 2024 9:27 am RE-ADMISSION EXAM September 05, 2024 5:4 0pm LABWORK September 10, 2024 5:0 0am LABWORK September 12, 2024 5:0 0am SENIOR CARE LAB WORK September 17, 2024 4 :00am LABWORK September 24, 2024 5:00am WOUND September 24, 2024 9:58am WOUND September 24, 2024 11:01a m LABWORK October 02, 2024 5:00a m Remove hola/Amp 08/29/2024 October 03, 2 025 8:55am SENIOR CARE LAB WORK October 08, 2024 4:0 0am SENIOR CARE LAB WORK October 16, 2024 5:0 0am 2 WK FU October 17, 2024 10:05 am SENIOR CARE LAB WORK October 29, 2024 4:0 0am 1 Y FU October 29, 2024 9:45a m fall November 08, 2024 7:35 pm Reason for Visit Admit Date End stage renal disease July 13, 2 [...] chronic disease August 29 1:06pm 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 [...] AV fistula October 17, 2024 10:05 am Chronic diastolic (congestive) heart esequiel lure October 29, 2024 9:45am Essential (primary) hypertension October 9:45am Sinus bradycardia October 29, 2024 9:45a m Chief Complaint Admit Date LABWORK July 30, 2024 5:0 0am WOUND [...] 30am WOUND August 20, 2024 1:5 9pm SENIOR CARE LAB WORK August 27, 2024 4: 00am WOUND August 27, 2024 8:23 am WOUND August 27, 2024 9:27 am RE-ADMISSION EXAM September 05, 2024 5:4 0pm LABWORK September 10, 2024 5:0 0am LABWORK September 12, 2024 5:0 0am SENIOR CARE LAB WORK September 17, 2024 4 :00am LABWORK September 24, 2024 5:00am WOUND September 24, 2024 9:58am WOUND September 24, 2024 11:01a m LABWORK October 02, 2024 5:00a m Remove hola/Amp 08/29/2024 October 03, 2 025 8:55am SENIOR CARE LAB WORK October 08, 2024 4:0 0am SENIOR CARE LAB WORK October 16, 2024 5:0 0am 2 WK FU October 17, 2024 10:05 am SENIOR CARE LAB WORK October 22, 2024 5:0 0am SENIOR CARE LAB WORK October 29, 2024 4:0 0am 1 Y FU October 29, 2024 9:45a m fall November 08, 2024 7:35 pm bradycardia November 22, 2024 8:44a m Reason for Visit Admit Date PAD (peripheral artery disease) August 202024 10:30am Diabetic infection of right foot July 232024 10:30am Osteomyelitis of right foot August 20, 2024 10:30am Wound, open, foot August 20, 2024 10: 30am PAD (peripheral artery disease) August 8:23am Diabetic infection of right foot August 272024 8:23am Osteomyelitis of right foot August 27, 2 025 8:23am Wound, open, foot August 27, 2024 8:23 am 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 August 29, 2024 1:06pm End stage renal disease August 29, 2024 1:06pm Anemia of chronic disease August 29 1:06pm 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 August 29, 2024 1:06pm [...] AV fistula October 17, 2024 10:05 am Chronic diastolic (congestive) heart esequiel lure October 29, 2024 9:45am Essential (primary) hypertension October 9:45am Sinus bradycardia October 29, 2024 9:45a m Chief Complaint Admit Date LABWORK August 13, 2024 5:0 0am WOUND August 13, 2024 9:0 2pm MONTHLY EXAM August 14, 2024 9:4 8pm LAB WORK August 20, 2024 5:0 0am WOUND August 20, 2024 10: 30am WOUND August 20, 2024 1:5 9pm SENIOR CARE LAB WORK August 27, 2024 4: 00am WOUND August 27, 2024 8:23 am WOUND August 27, 2024 9:27 am RE-ADMISSION EXAM September 05, 2024 5:4 0pm LABWORK September 10, 2024 5:0 0am LABWORK September 12, 2024 5:0 0am SENIOR CARE LAB WORK September 17, 2024 4 :00am LABWORK September 24, 2024 5:00am WOUND September 24, 2024 9:58am WOUND September 24, 2024 11:01a m LABWORK October 02, 2024 5:00a m Remove hola/Amp 08/29/2024 October 03, 2 025 8:55am SENIOR CARE LAB WORK October 08, 2024 4:0 0am SENIOR CARE LAB WORK October 16, 2024 5:0 0am MONTHLY EXAM October 16, 2024 5:30p m 2 WK FU October 17, 2024 10:05 am SENIOR CARE LAB WORK October 22, 2024 5:0 0am SENIOR CARE LAB WORK October 29, 2024 4:0 0am 1 Y FU October 29, 2024 9:45a m LABWORK November 05, 2024 5:00 am fall November 08, 2024 7:35 pm bradycardia November 22, 2024 8:44a m Chief Complaint Admit Date LABWORK August 13, 2024 5:0 0am WOUND August 13, 2024 9:0 2pm MONTHLY EXAM August 14, 2024 9:4 8pm LAB WORK August 20, 2024 5:0 0am WOUND August 20, 2024 10: 30am WOUND August 20, 2024 1:5 9pm SENIOR CARE LAB WORK August 27, 2024 4: 00am WOUND August 27, 2024 8:23 am WOUND August 27, 2024 9:27 am RE-ADMISSION EXAM September 05, 2024 5:4 0pm LABWORK September 10, 2024 5:0 0am LABWORK September 12, 2024 5:0 0am SENIOR CARE LAB WORK September 17, 2024 4 :00am LABWORK September 24, 2024 5:00am WOUND September 24, 2024 9:58am WOUND September 24, 2024 11:01a m LABWORK October 02, 2024 5:00a m Remove hola/Amp 08/29/2024 October 03, 2 025 8:55am SENIOR CARE LAB WORK October 08, 2024 4:0 0am SENIOR CARE LAB WORK October 16, 2024 5:0 0am MONTHLY EXAM October 16, 2024 5:30p m 2 WK FU October 17, 2024 10:05 am SENIOR CARE LAB WORK October 22, 2024 5:0 0am SENIOR CARE LAB WORK October 29, 2024 4:0 0am 1 Y FU October 29, 2024 9:45a m MONTHLY EXAM November 02, 2024 5:00 pm LABWORK November 05, 2024 5:00 am fall November 08, 2024 7:35 pm SENIOR CARE LAB WORK November 12, 2024 5: 00am bradycardia November 22, 2024 8:44a m Family History Relationship Condition Age at Onset Recorded Date/T laila mother Hypertension Unknown father Diabetes mellitus Unknown Chronic obstructive pulmonary disease Unk nown Advance Directives Documents on File Type Date Recorded 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 Advance Directive(s) 07/03/2024 11:50 AM Date Activated Date Inactivated Comments 11/23/2024 5:43 AM 11/28/2024 2:55 PM Question Answer Comments Full Code Order Discussed With: Patient Advance Directive Response Recorded Date/ Time Advance Directives on File No November 06, 2021 9:22am Name of Medical Power of Physicist Nuclear Arian Thompson November 06, 2021 9:22am Advance Directives Yes November 06 9:22am Living Will Yes November 06, 2021 9:22am Power of Physicist Nuclear Yes November 06 9:22am Documents on File Type Date Recorded 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 Yes July 02, 2024 2:52pm Name of Medical Power of Physicist Nuclear NOARH GATES July 02, 2024 2:52pm Living Will Yes July 03 025 3:50pm Do you have a Healthcare Pow er of Physicist Nuclear? Yes July 03, 2024 3:50pm Name of Medical Power of Physicist Nuclear jacinda gates July 03, 2024 3:50pm Living Will Yes July 07 025 7:28pm Do you have a Healthcare Pow er of Physicist Nuclear? Yes July 07, 2024 7:28pm Name of Medical Power of Physicist Nuclear maurice gates- daughter July 07, 2024 7:28pm Living Will Yes July 13 025 7:33pm Do you have a Healthcare Pow er of Physicist Nuclear? Yes July 13, 2024 7:33pm Name of Medical Power of Physicist Nuclear Jacinda Mstac k July 13, 2024 7:33pm Living Will Yes August 28, 2024 8:57am Do you have a Healthcare Pow er of Physicist Nuclear? Yes August 28, 2024 8:57am Name of Medical Power of Physicist Nuclear NORAH GATES August 28, 2024 8:57am Living Will No June 04 2:32pm Do you have a Healthcare Pow er of Physicist Nuclear? No June 04, 2024 2:32pm Living Will Yes August 01, 2024 1:12pm Do you have a Healthcare Pow er of Physicist Nuclear? Yes August 01, 2024 1:12pm Name of Medical Power of Physicist Nuclear Jacinda Gates Mary Anne seble August 01, 2024 1:12pm Advance Directives Yes April 11:29am Advance Directive Response Recorded Date/ Time Living Will Yes July 02 025 2:52pm Do you have a Healthcare Pow er of Physicist Nuclear? Yes July 02, 2024 2:52pm Name of Medical Power of Physicist Nuclear NORAH GATES July 02, 2024 2:52pm Living Will Yes July 03 025 3:50pm Do you have a Healthcare Pow er of Physicist Nuclear? Yes July 03, 2024 3:50pm Name of Medical Power of Physicist Nuclear jacinda gates July 03, 2024 3:50pm Living Will Yes July 07 025 7:28pm Do you have a Healthcare Pow er of Physicist Nuclear? Yes July 07, 2024 7:28pm Name of Medical Power of Physicist Nuclear maurice gates- francisco July 07, 2024 7:28pm Living Will Yes July 13 025 7:33pm Do you have a Healthcare Pow er of Physicist Nuclear? Yes July 13, 2024 7:33pm Name of Medical Power of Physicist Nuclear Jacinda Ortizjorge margarita July 13, 2024 7:33pm Living Will Yes August 28, 2024 8:57am Do you have a Healthcare Pow er of Physicist Nuclear? Yes August 28, 2024 8:57am Name of Medical Power of Physicist Nuclear NORAH GATES August 28, 2024 8:57am Living Will Yes August 01, 2024 1:12pm Do you have a Healthcare Pow er of Physicist Nuclear? Yes August 01, 2024 1:12pm Name of Medical Power of Physicist Nuclear Jacinda Gates Mary Anne seble August 01, 2024 1:12pm Advance Directives Yes April 11:29am Advance Directive Response Recorded Date/ Time Living Will Yes November 06, 2021 9:22am Do you have a Healthcare Pow er of Physicist Nuclear? Yes November 06, 2021 9:22am Living Will Yes July 13 025 7:33pm Do you have a Healthcare Pow er of Physicist Nuclear? Yes July 13, 2024 7:33pm Name of Medical Power of Physicist Nuclear Jacinda Ortizac k July 13, 2024 7:33pm Living Will Yes August 28, 2024 8:57am Do you have a Healthcare Pow er of Physicist Nuclear? Yes August 28, 2024 8:57am Name of Medical Power of Physicist Nuclear NORAH GATES August 28, 2024 8:57am Do you have a Healthcare Pow er of Physicist Nuclear? No November 08, 2024 7:39pm Living Will Yes August 01, 2024 1:12pm Do you have a Healthcare Pow er of Physicist Nuclear? Yes August 01, 2024 1:12pm Name of Medical Power of Physicist Nuclear Jacinda Gates - [facility] August 01, 2024 1:12pm Advance Directives Yes April 11:29am Advance Directive Response Recorded Date/ Time Living Will Yes November 06, 2021 9:22am Do you have a Healthcare Pow er of Physicist Nuclear? Yes November 06, 2021 9:22am Living Will Yes August 28, 2024 8:57am Do you have a Healthcare Pow er of Physicist Nuclear? Yes August 28, 2024 8:57am Name of Medical Power of Physicist Nuclear NORAH GATES August 28, 2024 8:57am Do you have a Healthcare Pow er of Physicist Nuclear? No November 08, 2024 7:39pm Do you have a Healthcare Pow er of Physicist Nuclear? Yes November 22, 2024 12:42pm Living Will Yes August 01, 2024 1:12pm Do you have a Healthcare Pow er of Physicist Nuclear? Yes August 01, 2024 1:12pm Name of Medical Power of Physicist Nuclear Jacinda Gates - seble August 01, 2024 1:12pm Advance Directives Yes April 11:29am Advance Directive Response Recorded Date/ Time Living Will Yes November 06, 2021 9:22am Do you have a Healthcare Power of Physicist Nuclear? Yes November 06, 2021 9:22am Living Will Yes August 28, 2024 8:57am Do you have a Healthcare Power of Physicist Nuclear? Yes August 28, 2024 8:57am Name of Medical Power of Physicist Nuclear NORAH GATES August 28, 2024 8:57am Do you have a Healthcare Power of Physicist Nuclear? No November 08, 2024 7:39pm Do you have a Healthcare Power of Physicist Nuclear? Yes November 22, 2024 12:42pm Advance Directives Yes April 11:29am Date Activated Date Inactivated Comments 11/23/2024 5:43 AM 11/28/2024 2:55 PM Question Answer Comments Full Code Order Discussed With: Patient Reason for Referral Specialty Diagnoses / Procedures Referred By Contac t Referred To Contact Diagnoses 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 edema, without long-term current use of insulin ([facility]) Lauren Arzola, ELICIA.DIRECT SUPPORT PROFESSIONAL [address] [place] [address] Referral ID Status Reason Start Date Expiration Date V isits Requested Visits Authorized [id number] Pending Review 1 1 Referral ID Status Reason Start Date Expiration Date Visits Re quested Visits Authorized [id number] Closed 1 1 Specialty Diagnoses / Procedures Referred By Contac t Referred To Contact Diagnoses 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, without long-term current use of insulin ([facility]) Lauren Arzola, ELICIA.DIRECT SUPPORT PROFESSIONAL [address] [place] [address] Referral ID Status Reason Start Date Expiration Date V isits Requested Visits Authorized [id number] Authorized 1 1 Summary Purpose Additional Source Comments Source Comments (unrecognize d section and content) In the event this informatio n is protected by the Federal Confidentiality of Alcohol and Drug Abuse Patient Records regulations: The Federal rules restrict any use of the information to criminally investigate or prosecute any alcohol or drug abuse patient.[facility] HealthIn the event this information is protected by the Federal Confidentiality of Alcohol and Drug Abuse Patient Records regulations: The Federal rules restrict any use of the information to criminally investigate or prosecute any alcohol or drug abuse patient.Prem[facility] HealthIn the event this information is protected by the Federal Confidentiality of Alcohol and Drug Abuse Patient Records regulations: The Federal rules restrict any use of the information to criminally investigate or prosecute any alcohol or drug abuse patient.Prem[facility] HealthIn the event this information is protected by the Federal Confidentiality of Alcohol and Drug Abuse Patient Records regulations: The Federal rules restrict any use of the information to criminally investigate or prosecute any alcohol or drug abuse patient.Prem[facility] HealthIn the event this information is protected by the Federal Confidentiality of Alcohol and Drug Abuse Patient Records regulations: The Federal rules restrict any use of the information to criminally investigate or prosecute any alcohol or drug abuse patient.Prem[facility] HealthIn the event this information is protected by the Federal Confidentiality of Alcohol and Drug Abuse Patient Records regulations: The Federal rules restrict any use of the information to criminally investigate or prosecute any alcohol or drug abuse patient.Prem[facility] HealthIn the event this information is protected by the Federal Confidentiality of Alcohol and Drug Abuse Patient Records regulations: The Federal rules restrict any use of the information to criminally investigate or prosecute any alcohol or drug abuse patient.Prem[facility] HealthIn the event this information is protected by the Federal Confidentiality of Alcohol and Drug Abuse Patient Records regulations: The Federal rules restrict any use of the information to criminally investigate or prosecute any alcohol or drug abuse patient.Prem[facility] HealthIn the event this information is protected by the Federal Confidentiality of Alcohol and Drug Abuse Patient Records regulations: The Federal rules restrict any use of the information to criminally investigate or prosecute any alcohol or drug abuse patient.Prem[facility] HealthIn the event this information is protected by the Federal Confidentiality of Alcohol and Drug Abuse Patient Records regulations: The Federal rules restrict any use of the information to criminally investigate or prosecute any alcohol or drug abuse patient.Prem[facility] HealthIn the event this information is protected by the Federal Confidentiality of Alcohol and Drug Abuse Patient Records regulations: The Federal rules restrict any use of the information to criminally investigate or prosecute any alcohol or drug abuse patient.Prem[facility] HealthIn the event this information is protected by the Federal Confidentiality of Alcohol and Drug Abuse Patient Records regulations: The Federal rules restrict any use of the information to criminally investigate or prosecute any alcohol or drug abuse patient.Premier HealthIn the event this information is protected by the Federal Confidentiality of Alcohol and Drug Abuse Patient Records regulations: The Federal rules restrict any use of the information to criminally investigate or prosecute any alcohol or drug abuse patient.Prem[facility] HealthIn the event this information is protected by the Federal Confidentiality of Alcohol and Drug Abuse Patient Records regulations: The Federal rules restrict any use of the information to criminally investigate or prosecute any alcohol or drug abuse patient.Prem[facility] HealthIn the event this information is protected by the Federal Confidentiality of Alcohol and Drug Abuse Patient Records regulations: The Federal rules restrict any use of the information to criminally investigate or prosecute any alcohol or drug abuse patient.Premier HealthIn the event this information is protected by the Federal Confidentiality of Alcohol and Drug Abuse Patient Records regulations: The Federal rules restrict any use of the information to criminally investigate or prosecute any alcohol or drug abuse patient.Premier HealthIn the event this information is protected by the Federal Confidentiality of Alcohol and Drug Abuse Patient Records regulations: The Federal rules restrict any use of the information to criminally investigate or prosecute any alcohol or drug abuse patient.Premier HealthIn the event this information is protected by the Federal Confidentiality of Alcohol and Drug Abuse Patient Records regulations: The Federal rules restrict any use of the information to criminally investigate or prosecute any alcohol or drug abuse patient.Premier HealthIn the event this information is protected by the Federal Confidentiality of Alcohol and Drug Abuse Patient Records regulations: The Federal rules restrict any use of the information to criminally investigate or prosecute any alcohol or drug abuse patient.Premier HealthIn the event this information is protected by the Federal Confidentiality of Alcohol and Drug Abuse Patient Records regulations: The Federal rules restrict any use of the information to criminally investigate or prosecute any alcohol or drug abuse patient.Premier HealthIn the event this information is protected by the Federal Confidentiality of Alcohol and Drug Abuse Patient Records regulations: The Federal rules restrict any use of the information to criminally investigate or prosecute any alcohol or drug abuse patient.Premier HealthIn the event this information is protected by the Federal Confidentiality of Alcohol and Drug Abuse Patient Records regulations: The Federal rules restrict any use of the information to criminally investigate or prosecute any alcohol or drug abuse patient.Premier HealthIn the event this information is protected by the Federal Confidentiality of Alcohol and Drug Abuse Patient Records regulations: The Federal rules restrict any use of the information to criminally investigate or prosecute any alcohol or drug abuse patient.Premier HealthIn the event this information is protected by the Federal Confidentiality of Alcohol and Drug Abuse Patient Records regulations: The Federal rules restrict any use of the information to criminally investigate or prosecute any alcohol or drug abuse patient.Prem[facility] HealthIn the event this information is protected by the Federal Confidentiality of Alcohol and Drug Abuse Patient Records regulations: The Federal rules restrict any use of the information to criminally investigate or prosecute any alcohol or drug abuse patient.Premier HealthIn the event this information is protected by the Federal Confidentiality of Alcohol and Drug Abuse Patient Records regulations: The Federal rules restrict any use of the information to criminally investigate or prosecute any alcohol or drug abuse patient.Premier HealthIn the event this information is protected by the Federal Confidentiality of Alcohol and Drug Abuse Patient Records regulations: The Federal rules restrict any use of the information to criminally investigate or prosecute any alcohol or drug abuse patient.Premier HealthIn the event this information is protected by the Federal Confidentiality of Alcohol and Drug Abuse Patient Records regulations: The Federal rules restrict any use of the information to criminally investigate or prosecute any alcohol or drug abuse patient.Premier HealthIn the event this information is protected by the Federal Confidentiality of Alcohol and Drug Abuse Patient Records regulations: The Federal rules restrict any use of the information to criminally investigate or prosecute any alcohol or drug abuse patient.Prem[facility] HealthIn the event this information is protected by the Federal Confidentiality of Alcohol and Drug Abuse Patient Records regulations: The Federal rules restrict any use of the information to criminally investigate or prosecute any alcohol or drug abuse patient.Premier HealthIn the event this information is protected by the Federal Confidentiality of Alcohol and Drug Abuse Patient Records regulations: The Federal rules restrict any use of the information to criminally investigate or prosecute any alcohol or drug abuse patient.Premier HealthIn the event this information is protected by the Federal Confidentiality of Alcohol and Drug Abuse Patient Records regulations: The Federal rules restrict any use of the information to criminally investigate or prosecute any alcohol or drug abuse patient.Premier HealthIn the event this information is protected by the Federal Confidentiality of Alcohol and Drug Abuse Patient Records regulations: The Federal rules restrict any use of the information to criminally investigate or prosecute any alcohol or drug abuse patient.Premier HealthIn the event this information is protected by the Federal Confidentiality of Alcohol and Drug Abuse Patient Records regulations: The Federal rules restrict any use of the information to criminally investigate or prosecute any alcohol or drug abuse patient.Premier HealthIn the event this information is protected by the Federal Confidentiality of Alcohol and Drug Abuse Patient Records regulations: The Federal rules restrict any use of the information to criminally investigate or prosecute any alcohol or drug abuse patient.Premier HealthIn the event this information is protected by the Federal Confidentiality of Alcohol and Drug Abuse Patient Records regulations: The Federal rules restrict any use of the information to criminally investigate or prosecute any alcohol or drug abuse patient.Premier HealthIn the event this information is protected by the Federal Confidentiality of Alcohol and Drug Abuse Patient Records regulations: The Federal rules restrict any use of the information to criminally investigate or prosecute any alcohol or drug abuse patient.Premier HealthIn the event this information is protected by the Federal Confidentiality of Alcohol and Drug Abuse Patient Records regulations: The Federal rules restrict any use of the information to criminally investigate or prosecute any alcohol or drug abuse patient.[facility] Reason for Visit (unrecogniz ed section and content) Reason Comments Results Reason Onset Date Comments Refill Request 12/14/2021 Reason Comments Refill Request Reason Comments Insurance Authorization Information on G ximena Reason Onset Date Comments Refill Request 01/26/2022 Reason Comments Follow Up 6 month Reason Comments Follow Up 3 month Reason Onset Date Comments Refill Request 08/19/2022 Reason Comments F/U 3 Month Reason Comments Refill Request Reason Onset Date Comments Refill Request 11/04/2022 Reason Onset Date Comments Refill Request 11/15/2022 Reason Comments Insurance Authorization Reason Comments Medication Problem Reason Comments [facility] m[facility]or requesting recor ds Reason Comments Established Patient [...] Date Comments Population Health Navigation Outreach 04/23/2024 [employer]/[place] Reason Comments Patient Update Fill out Surgical Release Forms Reason Onset Date Comments Population Health Navigation Outreach 06/11/2024 [employer] workbench [place] Reason Onset Date Comments Refill Request 07/09/2024 Reason Onset Date Comments Population Health Navigation Outreach 07/11/2024 [employer] workbench [place] Reason Comments Courtesy call Device survey Care Teams (unrecognized sec tion and content) Team Status: Active Member Role Status Dates Dr. Nando Wiggins MD Primary Care Provider Active Team Status: Inactive Member Role Status Dates Dr. Nando Wiggins MD Primary Care Provider Active Start: July 13, 2024 End: July 13, 2024 Meredith Guevara NP, [employer] Attending Provider Active Start: July 13, 2024 [...] Star t: July 18, 2024 Dr. Juan Anotnio Holden MD Other Provider Active Sta rt: [...] Provider Active Start: July 18, 2024 Dr. Lele White MD Attending Provider Active S tart: [...] Provider Active Start: July 20, 2024 Dr. Lele White MD Attending Provider Active S tart: [...] Care Provider Active Start: July 23, 2024 Nnado SHERWOOD MD Attending Provider Active Start: July [...] 2024 End: July 31, 2024 Meredith Guevara [employer]ER [employer] Attending Provider Active Start: July 31, 2024 End: July 31, 2024 Team Status: Inactive Member Role Status Dates Dr. Nando Wiggins MD Primary Care Provider Active Start: August 01, 2024 End: August 01, 2024 Meredith Tickton [employer]OD SERVER, [employer]C Attending Provider Active Start: August 01, 2024 [...] Provider Active Start: August 29, 2024 Dr. Lele White MD Admit Provider Active Start : August 29, 2024 Dr. Lele White MD Referring Provider Active S tart: August 29, 2024 Dr. Lele White MD Other Provider Active Start : August 29, 2024 Dr. Randal Damico MD Attending Provider Active Start: August 29, 2024 Dr. Randal Damico MD Other Provider Active Star t: August 29, 2024 Team Status: Active Member Role Status Dates Dr. Nando Wiggins MD Primary Care Provider Active Start: August 29, 2024 Dr. Lele White MD Admit Provider Active Start : August 29, 2024 Dr. Lele White MD Attending Provider Active S tart: August 29, 2024 Dr. Lele White MD Referring Provider Active S tart: August 29, 2024 Dr. Lele White MD Other Provider Active Start : August 29, 2024 Dr. Randal Damico MD Other Provider Active Star t: August 29, 2024 Team Status: Inactive Member Role Status Dates Dr. Nando Wiggins MD Primary Care Provider Active Start: August 29, 2024 End: September 04, 2024 Dr. Lele White MD Admit Provider Active Start : August 29, 2024 End: September 04, 2024 Dr. Lele White MD Attending Provider Active S tart: August 29, 2024 End: September 04, 2024 Dr. Lele White MD Referring Provider Active S tart: [...] Provider Active Start: August 30, 2024 Dr. Lele White MD Admit Provider Active Start : August 30, 2024 Dr. Lele White MD Referring Provider Active S tart: August 30, 2024 Dr. Lele White MD Other Provider Active Start : [...] Provider Active Start: August 30, 2024 Dr. Lele White MD Admit Provider Active Start : August 30, 2024 Dr. Lele White MD Referring Provider Active S tart: August 30, 2024 Dr. Lele White MD Other Provider Active Start : August 30, 2024 Dr. Randal Damico MD Other Provider Active Star t: August 30, 2024 Dr. Manuel Alva MD Other Provider Active Start: August 30, 2024 KRISTOFER Hernández Attending Provider Active Star t: August 30, 2024 Team Status: Active Member Role Status Dates Dr. Nando Wiggins MD Primary Care Provider Active Start: August 31, 2024 Dr. Lele White MD Admit Provider Active Start : August 31, 2024 Dr. Lele White MD Referring Provider Active S tart: August 31, 2024 Dr. Lele White MD Other Provider Active Start : August 31, 2024 Dr. Randal Damico MD Other Provider Active Star t: August 31, 2024 Dr. Manuel Alva MD Other Provider Active Start: August 31, 2024 KRISTOFER Hernández Attending Provider Active Star t: August 31, 2024 Team Status: Active Member Role Status Dates Dr. Nando Wiggins MD Primary Care Provider Active Start: August 31, 2024 Dr. Lele White MD Attending Provider Active S tart: August 31, 2024 KRISTOFER Hernández Referring Provider Active Star t: August 31, 2024 Team Status: Active Member Role Status Dates Dr. Nando Wiggins MD Primary Care Provider Active Start: August 31, 2024 Dr. Lele White MD Admit Provider Active Start : August 31, 2024 Dr. Lele White MD Referring Provider Active S tart: August 31, 2024 Dr. Lele White MD Other Provider Active Start : [...] Provider Active Start: September 01, 2024 Dr. Lele White MD Admit Provider Active Start : September 01, 2024 Dr. Lele White MD Referring Provider Active S tart: September 01, 2024 Dr. Lele White MD Other Provider Active Start : September 01, 2024 Dr. Randal Damico MD Other Provider Active Star t: September 01, 2024 Dr. Manuel Alva MD Other Provider Active Start: September 01, 2024 KRISTOFER Hernández Attending Provider Active Star t: September 01, 2024 Team Status: Active Member Role Status Dates Dr. Nando Wiggins MD Primary Care Provider Active Start: September 02, 2024 Dr. Lele White MD Admit Provider Active Start : September 02, 2024 Dr. Leel White MD Referring Provider Active S tart: September 02, 2024 Dr. Lele White MD Other Provider Active Start : September 02, 2024 Dr. Randal Damico MD Other Provider Active Star t: September 02, 2024 Dr. Manuel Alva MD Other Provider Active Start: September 02, 2024 KRISTOFER Hernández Attending Provider Active Star t: September 02, 2024 Team Status: Active Member Role Status Dates Dr. Nando Wiggins MD Primary Care Provider Active Start: September 03, 2024 Dr. Lele White MD Admit Provider Active Start : September 03, 2024 Dr. Lele White MD Referring Provider Active S tart: September 03, 2024 Dr. Lele White MD Other Provider Active Start : [...] Provider Active Start: September 03, 2024 Dr. eLle White MD Admit Provider Active Start : September 03, 2024 Dr. Lele White MD Attending Provider Active S tart: September 03, 2024 Dr. Lele White MD Referring Provider Active S tart: September 03, 2024 Dr. Lele White MD Other Provider Active Start : September 03, 2024 Dr. Randal Damico MD Other Provider Active Star t: September 03, 2024 Dr. Manuel Alva MD Other Provider Active Start: September 03, 2024 Team Status: Active Member Role Status Dates Dr. Nando Wiggins MD Primary Care Provider Active Start: September 04, 2024 Dr. Lele White MD Admit Provider Active Start : September 04, 2024 Dr. Lele White MD Referring Provider Active S tart: September 04, 2024 Dr. Lele White MD Other Provider Active Start : [...] 2024 End: September 05, 2024 Meredith Guevara [employer]ER, [employer]C Attending Provider Active Start: September 05, 2024 [...] 2024 End: September 12, 2024 Team Status: Inactive Member Role Status Dates Dr. Nando Wiggins MD Primary Care Provider Active Start: September 17, 2024 End: September 17, 2024 Nando SHERWOOD MD Attending Provider Active Start: September 17, 2024 End: September 17, 2024 Nando SHERWOOD MD Referring Provider Active Start: September 17, 2024 End: September 17, 2024 Team Status: Inactive Member [...] Attending Provider Active Start: October 08, 2024 Nando SHERWOOD MD Referring Provider Active Start: October 08, 2024 Team [...] October 17, 2024 End: October 17, 2024 Team Status: Active Member Role Status Dates Dr. Nando Wiggins MD Primary Care Provider Active Start: October 22, 2024 Nando SHERWOOD MD Attending Provider Active Start: October 22, 2024 Team Status: Active Member Role Status Dates Dr. Nando Wiggins MD Primary Care Provider Active Start: October 29, 2024 Nando SHERWOOD MD Attending Provider Active Start: October 29, 2024 Nando SHERWOOD MD Referring Provider Active Start: October 29, 2024 Team Status: Inactive Member Role Status Dates Dr. Jean Yan MD Referring Provider Active Start: October 29, 2024 End: October 29, 2024 Pooja Ruano [employer]OD SERVER, [employer] Attending Provider Active Start: October 29, 2024 End: October 29, 2024 Dr. Nando Wiggins MD Primary Care Provider Active Start: October 29, 2024 End: October 29, 2024 Team Status: Active Member Role Status Dates Dr. Nando Wiggins MD Primary Care Provider Active Start: November 05, 2024 Nando SHERWOOD MD Attending Provider Active Start: November 05, 2024 Team Status: Inactive Member Role Status Dates Dr. Nando Wiggins MD Primary Care Provider Active Start: November 08, 2024 End: November 09, 2024 Dr. Max Roberts DO Referring Provider Active Start : November 08, 2024 End: November 09, 2024 Dr. Max Roberts DO Emergency Provider Active Start : November 08, 2024 End: November 09, 2024 Team Status: Active Member Role Status [...] Inactive Member Role Status Dates Dr. Nando Wigigns MD Primary Care Provider Active Start: July 02, 2024 End: July 02, 2024 Meredith Guevara [employer]OD SERVER, [employer]-C Attending Provider Active Start: July 02, 2024 [...] 2024 End: July 10, 2024 Meredith Guevara NP, [employer]-C Attending Provider Active Start: July 10, 2024 [...] Active Start: September 17, 2024 Team Status: Active Member Role Status Dates Dr. Nando Wiggins MD Primary Care Provider Active Start: October 08, 2024 Nando SHERWOOD MD Attending Provider Active Start: October 08, 2024 Backshoe Person Relationship Specialty Start Date End Date Husam Yan MD [address] [facility] [place] [address] PCP - General Family Practice 10/14/16 Backshoe Person Relationship Specialty Start Date End Date Husam Yan MD [address] [facility] [place] [address] PCP - General Family Practice 10/14/16 Backshoe Person Relationship Specialty Start Date End Date Husam Yan MD [address] [facility] [place] [address] PCP - General Family Practice 10/14/16 Backshoe Person Relationship Specialty Start Date End Date Husam Yan MD [address] [facility] [place] [address] PCP - General Family Practice 10/14/16 Backshoe Person Relationship Specialty Start Date End Date Husam Yan MD [address] [facility] [place] [address] PCP - General Family Medicine 10/14/16 Backshoe Person Relationship Specialty Start Date End Date Husam Yan MD [address] [facility] [place] [address] PCP - General Family Medicine 10/14/16 Backshoe Person Relationship Specialty Start Date End Date Husam Yan MD [address] [facility] [place] [address] PCP - General Family Medicine 10/14/16 Backshoe Person Relationship Specialty Start Date End Date Husam Yan MD [address] [facility] [place] [address] PCP - General Family Medicine 10/14/16 Backshoe Person Relationship Specialty Start Date End Date Husam Yan MD [address] [place] [address] PCP - General Family Medicine 10/14/16 Backshoe Person Relationship Specialty Start Date End Date Husam Yan MD [address] [place] [address] PCP - General Family Medicine 10/14/16 Backshoe Person Relationship Specialty Start Date End Date Husam Yan MD [address] [place] [address] PCP - General Family Medicine 10/14/16 Backshoe Person Relationship Specialty Start Date End Date Husam Yan MD [address] [place] [address] PCP - General Family Medicine 10/14/16 Backshoe Person Relationship Specialty Start Date End Date Husam Yan MD [address] [place] [address] PCP - General Family Medicine 10/14/16 Backshoe Person Relationship Specialty Start Date End Date Husam Yan MD [address] [place] [address] PCP - General Family Medicine 10/14/16 Backshoe Person Relationship Specialty Start Date End Date Husam Yan MD [address] [place] [address] PCP - General Family Medicine 10/14/16 Backshoe Person Relationship Specialty Start Date End Date Husam Yan MD [address] [place] [address] PCP - General Family Medicine 10/14/16 Backshoe Person Relationship Specialty Start Date End Date Husam Yan MD [address] [facility] [place] [address] PCP - General Family Medicine 10/14/16 Backshoe Person Relationship Specialty Start Date End Date Husam Yan MD [address] [place] [address] PCP - General Family Medicine 10/14/16 Backshoe Person Relationship Specialty Start Date End Date Husam Yan MD [address] [place] [address] PCP - General Family Medicine 10/14/16 Backshoe Person Relationship Specialty Start Date End Date Husam Yan MD [address] [place] [address] PCP - General Family Medicine 10/14/16 Backshoe Person Relationship Specialty Start Date End Date Husam Yan MD [address] [place] [address] PCP - General Family Medicine 10/14/16 Backshoe Person Relationship Specialty Start Date End Date Husam Yan MD [address] [place] [address] PCP - General Family Medicine 10/14/16 Backshoe Person Relationship Specialty Start Date End Date Husam Yan MD [address] [facility] [place] [address] PCP - General Family Medicine 10/14/16 Backshoe Person Relationship Specialty Start Date End Date Husam Yan MD [address] [place] [address] PCP - General Family Medicine 10/14/16 Backshoe Person Relationship Specialty Start Date End Date Husam Yan MD [address] [place] [address] PCP - General Family Medicine 10/14/16 Podlogar, Lauren, CHAIR INSTALLER.DIRECT SUPPORT PROFESSIONAL [address] [place] [address] Cemetery Workers Supervisor Family Medicine 04/28/24 Backshoe Person Relationship Specialty Start Date End Date Husam Yan MD [address] [place], [place] [address] PCP - General Family Medicine 10/14/16 Podlogar, Lauren, CHAIR INSTALLER.DIRECT SUPPORT PROFESSIONAL [address] [place] [address] Cemetery Workers Supervisor Family Medicine 04/28/24 Backshoe Person Relationship Specialty Start Date End Date Husam Yan MD [address] [place] [address] PCP - General Family Medicine 10/14/16 Podlogar, Lauren, CHAIR INSTALLER.DIRECT SUPPORT PROFESSIONAL [address] [place] [address] Cemetery Workers Supervisor Family Medicine 04/28/24 Team Status: Inactive Member Role Status Dates Dr. Jean Yan MD Primary Care Provider Andrew ve Start: June 06, 2024 End: June [...] 2024 End: June 06, 2024 Meredith Guevara KITCHEN FOOD SERVER, [employer]ER-C Attending Provider Active Start: June 06, 2024 [...] Attending Provider Active Start: October 02, 2024 Team Status: Active Member Role/Relationship Status Dates Dr. Nando Wiggins MD Primary Care Provider Active Team Status: Active Member Role/Relationship Status Dates Dr. Nando Wiggins MD Primary Care Provider Active Start: July 30, 2024 Nando SHERWOOD MD Attending Provider Active Start: July 30, 2024 Team Status: Active Member Role/Relationship Status Dates Dr. Warren Mendoza DPM Referring Provider Active Start: July 30, 2024 Dr. Nando Wiggins MD Primary Care Provider Active Start: July 30, 2024 Dr. Randal Damico MD Attending Provider Active Start: July 30, 2024 Dr. Randal Damico MD Other Provider Active Star t: July 30, 2024 Team Status: Inactive Member Role/Relationship Status Dates Dr. Nando Wiggins MD Primary Care Provider Active Start: July 31, 2024 End: July 31, 2024 Meredith Guevara NP [employer]ER-C Attending Provider Active Start: July 31, 2024 End: July 31, 2024 Team Status: Inactive Member Role/Relationship Status Dates Dr. Nando Wiggins MD Primary Care Provider Active Start: August 01, 2024 End: August 01, 2024 Meredith Tickton KITCHEN FOOD SERVER, KITCHEN FOOD SERVER-C Attending Provider Active Start: August 01, 2024 End: August 01, 2024 Team Status: Inactive Member Role/Relationship Status Dates Dr. Nando Wiggins MD Primary Care Provider Active Start: August 01, 2024 End: August 01, 2024 Dr. Des Garcia DO Attending Provider Active Start: August 01, 2024 End: August 01, 2024 Dr. Des Garcia DO Emergency Provider Active Start: August 01, 2024 End: August 01, 2024 Team Status: Active Member Role/Relationship Status Dates Dr. Nando Wiggins MD Primary Care Provider Active Start: August 06, 2024 Nando SHEROWOD MD Attending Provider Active Start: August 06, 2024 Team Status: Active Member Role/Relationship Status Dates Dr. Nando Wiggins MD Primary Care Provider Active Start: August 06, 2024 Dr. Randal Damico MD Attending Provider Active Start: August 06, 2024 Dr. Randal Damico MD Referring Provider Active Start: August 06, 2024 Dr. Randal Damico MD Other Provider Active Star t: August 06, 2024 Team Status: Inactive Member Role/Relationship Status Dates Dr. Nando Wiggins MD Primary Care Provider Active Start: August 13, 2024 End: August 13, 2024 Nando SHERWOOD MD Attending Provider Active Start: August 13, 2024 End: August 13, 2024 Team Status: Active Member Role/Relationship Status Dates Dr. Nando Wiggins MD Primary Care Provider Active Start: August 13, 2024 Dr. Randal Damico MD Attending Provider Active Start: August 13, 2024 Dr. Randal Damico MD Referring Provider Active Start: August 13, 2024 Dr. Randal Damico MD Other Provider Active Star t: August 13, 2024 Team Status: Inactive Member Role/Relationship Status Dates Dr. Nando Wiggins MD Primary Care Provider Active Start: August 14, 2024 End: August 14, 2024 Dr. Nando Wiggins MD Attending Provider Active Start: August 14, 2024 End: August 14, 2024 Team Status: Active Member Role/Relationship Status Dates Dr. Nando Wiggins MD Primary Care Provider Active Start: August 20, 2024 Nando SHERWOOD MD Attending Provider Active Start: August 20, 2024 Team Status: Inactive Member Role/Relationship Status Dates Dr. Warren Mendoza DPM Referring Provider Active Start: August 20, 2024 End: August 20, 2024 Dr. Nando Wiggins MD Primary Care Provider Active Start: August 20, 2024 End: August 20, 2024 Dr. Randal Damico MD Attending Provider Active Start: August 20, 2024 End: August 20, 2024 Team Status: Active Member Role/Relationship Status Dates Dr. Nando Wiggins MD Primary Care Provider Active Start: August 20, 2024 Dr. Randal Damico MD Attending Provider Active Start: August 20, 2024 Dr. Randal Damico MD Referring Provider Active Start: August 20, 2024 Dr. Randal Damico MD Other Provider Active Star t: August 20, 2024 Team Status: Inactive Member Role/Relationship Status Dates Dr. Nando Wiggins MD Primary Care Provider Active Start: August 27, 2024 End: August 27, 2024 Nando SHERWOOD MD Attending Provider Active Start: August 27, 2024 End: August 27, 2024 Nando SHERWOOD MD Referring Provider Active Start: August 27, 2024 End: August 27, 2024 Team Status: Inactive Member Role/Relationship Status Dates Dr. Warren Mendoza DPM Referring Provider Active Start: August 27, 2024 End: September 19, 2024 Dr. Nando Wiggins MD Primary Care Provider Active Start: August 27, 2024 End: September 19, 2024 Dr. Randal Damico MD Attending Provider Active Start: August 27, 2024 End: September 19, 2024 Team Status: Active Member Role/Relationship Status Dates Dr. Warren Mendoza DPM Referring Provider Active Start: August 27, 2024 Dr. Nando Wiggins MD Primary Care Provider Active Start: August 27, 2024 Dr. Randal Damico MD Attending Provider Active Start: August 27, 2024 Dr. Randal Damico MD Other Provider Active Star t: August 27, 2024 Team Status: Active Member Role/Relationship Status Dates Dr. Nando Wiggins MD Primary Care Provider Active Start: August 28, 2024 Nando SHERWOOD MD Attending Provider Active Start: August 28, 2024 Team Status: Active Member Role/Relationship Status Dates Dr. Nando Wiggins MD Primary Care Provider Active Start: August 29, 2024 Dr. Lele White MD Admit Provider Active Start : August 29, 2024 Dr. Lele White MD Referring Provider Active S tart: August 29, 2024 Dr. Lele White MD Other Provider Active Start : August 29, 2024 Dr. Randal Damico MD Attending Provider Active Start: August 29, 2024 Dr. Randal Damico MD Other Provider Active Star t: August 29, 2024 Team Status: Active Member Role/Relationship Status Dates Dr. Nando Wiggins MD Primary Care Provider Active Start: August 29, 2024 Dr. Lele White MD Admit Provider Active Start : August 29, 2024 Dr. Lele White MD Attending Provider Active S tart: August 29, 2024 Dr. Lele Whtie MD Referring Provider Active S tart: August 29, 2024 Dr. Lele White MD Other Provider Active Start : August 29, 2024 Dr. Randal Damico MD Other Provider Active Star t: August 29, 2024 Team Status: Inactive Member Role/Relationship Status Dates Dr. Nando Wiggins MD Primary Care Provider Active Start: August 29, 2024 End: September 04, 2024 Dr. Lele White MD Admit Provider Active Start : August 29, 2024 End: September 04, 2024 Dr. Lele White MD Attending Provider Active S tart: August 29, 2024 End: September 04, 2024 Dr. Lele White MD Referring Provider Active S tart: August 29, 2024 End: September 04, 2024 Dr. Randal Damico MD Other Provider Active Star t: August 29, 2024 End: September 04, 2024 Dr. Manuel Alva MD Other Provider Active Start: August 29, 2024 End: September 04, 2024 Team Status: Active Member Role/Relationship Status Dates Dr. Nando Wiggins MD Primary Care Provider Active Start: August 30, 2024 Dr. Lele White MD Admit Provider Active Start : August 30, 2024 Dr. Lele White MD Referring Provider Active S tart: August 30, 2024 Dr. Lele White MD Other Provider Active Start : August 30, 2024 Dr. Randal Damico MD Attending Provider Active Start: August 30, 2024 Dr. Randal Damico MD Other Provider Active Star t: August 30, 2024 Dr. Manuel Alva MD Other Provider Active Start: August 30, 2024 Team Status: Active Member Role/Relationship Status Dates Dr. Nando Wiggins MD Primary Care Provider Active Start: August 30, 2024 Dr. Lele White MD Admit Provider Active Start : August 30, 2024 Dr. Lele White MD Referring Provider Active S tart: August 30, 2024 Dr. Lele Whtie MD Other Provider Active Start : August 30, 2024 Dr. Randal Damico MD Other Provider Active Star t: August 30, 2024 Dr. Manuel Alva MD Other Provider Active Start: August 30, 2024 KRISTOFER Hernández Attending Provider Active Star t: August 30, 2024 Team Status: Active Member Role/Relationship Status Dates Dr. Nando Wiggins MD Primary Care Provider Active Start: August 31, 2024 Dr. Lele White MD Admit Provider Active Start : August 31, 2024 Dr. Lele White MD Referring Provider Active S tart: August 31, 2024 Dr. Lele White MD Other Provider Active Start : August 31, 2024 Dr. Randal Damico MD Other Provider Active Star t: August 31, 2024 Dr. Manuel Alva MD Other Provider Active Start: August 31, 2024 KRISTOFER Hernández Attending Provider Active Star t: August 31, 2024 Team Status: Active Member Role/Relationship Status Dates Dr. Nando Wiggins MD Primary Care Provider Active Start: August 31, 2024 Dr. Lele White MD Attending Provider Active S tart: August 31, 2024 KRISTOFER Hernández Referring Provider Active Star t: August 31, 2024 Team Status: Active Member Role/Relationship Status Dates Dr. Nando Wiggins MD Primary Care Provider Active Start: August 31, 2024 Dr. Lele White MD Admit Provider Active Start : August 31, 2024 Dr. Lele White MD Referring Provider Active S tart: August 31, 2024 Dr. Lele White MD Other Provider Active Start : August 31, 2024 Dr. Randal Damico MD Attending Provider Active Start: August 31, 2024 Dr. Randal Damico MD Other Provider Active Star t: August 31, 2024 Dr. Manuel Alva MD Other Provider Active Start: August 31, 2024 Team Status: Active Member Role/Relationship Status Dates Dr. Nando Wiggins MD Primary Care Provider Active Start: September 01, 2024 Dr. Lele White MD Admit Provider Active Start : September 01, 2024 Dr. Lele White MD Referring Provider Active S tart: September 01, 2024 Dr. Lele White MD Other Provider Active Start : September 01, 2024 Dr. Randal Damico MD Other Provider Active Star t: September 01, 2024 Dr. Manuel Alva MD Other Provider Active Start: September 01, 2024 KRISTOFER Hernández Attending Provider Active Star t: September 01, 2024 Team Status: Active Member Role/Relationship Status Dates Dr. Nando Wiggins MD Primary Care Provider Active Start: September 02, 2024 Dr. Lele White MD Admit Provider Active Start : September 02, 2024 Dr. Lele White MD Referring Provider Active S tart: September 02, 2024 Dr. Lele White MD Other Provider Active Start : September 02, 2024 Dr. Randal Damico MD Other Provider Active Star t: September 02, 2024 Dr. Manuel Alva MD Other Provider Active Start: September 02, 2024 KRISTOFER Hernández Attending Provider Active Star t: September 02, 2024 Team Status: Active Member Role/Relationship Status Dates Dr. Nando Wiggins MD Primary Care Provider Active Start: September 03, 2024 Dr. Lele White MD Admit Provider Active Start : September 03, 2024 Dr. Lele White MD Referring Provider Active S tart: September 03, 2024 Dr. Lele White MD Other Provider Active Start : September 03, 2024 Dr. Randal Damico MD Attending Provider Active Start: September 03, 2024 Dr. Randal Damico MD Other Provider Active Star t: September 03, 2024 Dr. Manuel Alva MD Other Provider Active Start: September 03, 2024 Team Status: Active Member Role/Relationship Status Dates Dr. Nando Wiggins MD Primary Care Provider Active Start: September 03, 2024 Dr. Lele White MD Admit Provider Active Start : September 03, 2024 Dr. Lele White MD Attending Provider Active S tart: September 03, 2024 Dr. Lele White MD Referring Provider Active S tart: September 03, 2024 Dr. Lele White MD Other Provider Active Start : September 03, 2024 Dr. Randal Damico MD Other Provider Active Star t: September 03, 2024 Dr. Manuel Alva MD Other Provider Active Start: September 03, 2024 Team Status: Active Member Role/Relationship Status Dates Dr. Nando Wiggins MD Primary Care Provider Active Start: September 04, 2024 Dr. Lele White MD Admit Provider Active Start : September 04, 2024 Dr. Lele White MD Referring Provider Active S tart: September 04, 2024 Dr. Lele White MD Other Provider Active Start : September 04, 2024 Dr. Randal Damico MD Other Provider Active Star t: September 04, 2024 Dr. Manuel Alva MD Other Provider Active Start: September 04, 2024 KRISTOFER Hernández Attending Provider Active Star t: September 04, 2024 Team Status: Inactive Member Role/Relationship Status Dates Dr. Nando Wiggins MD Primary Care Provider Active Start: September 05, 2024 End: September 05, 2024 Meredith Guevara NP, [employer]ER-C Attending Provider Active Start: September 05, 2024 End: September 05, 2024 Team Status: Active Member Role/Relationship Status Dates Dr. Nando Wiggins MD Primary Care Provider Active Start: September 10, 2024 Nando SHERWOOD MD Attending Provider Active Start: September 10, 2024 Team Status: Inactive Member Role/Relationship Status Dates Dr. Nando Wiggins MD Primary Care Provider Active Start: September 12, 2024 End: September 12, 2024 Nando SHERWOOD MD Attending Provider Active Start: September 12, 2024 End: September 12, 2024 Team Status: Inactive Member Role/Relationship Status Dates Dr. Nando Wiggins MD Primary Care Provider Active Start: September 17, 2024 End: September 17, 2024 Nando SHERWOOD MD Attending Provider Active Start: September 17, 2024 End: September 17, 2024 Nando SHERWOOD MD Referring Provider Active Start: September 17, 2024 End: September 17, 2024 Team Status: Inactive Member Role/Relationship Status Dates Dr. Nando Wiggins MD Primary Care Provider Active Start: September 24, 2024 End: September 24, 2024 Nando SHERWOOD MD Attending Provider Active Start: September 24, 2024 End: September 24, 2024 Team Status: Inactive Member Role/Relationship Status Dates Dr. Warren Mendoza DPM Referring Provider Active Start: September 24, 2024 End: October 18, 2024 Dr. Nando Wiggins MD Primary Care Provider Active Start: September 24, 2024 End: October 18, 2024 Dr. Randal Damico MD Attending Provider Active Start: September 24, 2024 End: October 18, 2024 Team Status: Active Member Role/Relationship Status Dates Dr. Warren Mendoza DPM Referring Provider Active Start: September 24, 2024 Dr. Nando Wiggins MD Primary Care Provider Active Start: September 24, 2024 Dr. Randal Damico MD Attending Provider Active Start: September 24, 2024 Dr. Randal Damico MD Other Provider Active Star t: September 24, 2024 Team Status: Inactive Member Role/Relationship Status Dates Dr. Nando Wiggins MD Primary Care Provider Active Start: October 02, 2024 End: October 02, 2024 Nando SHERWOOD MD Attending Provider Active Start: October 02, 2024 End: October 02, 2024 Team Status: Inactive Member Role/Relationship Status Dates Dr. Nando Wiggins MD Primary Care Provider Active Start: October 03, 2024 End: October 03, 2024 Dr. Nando Wiggins MD Referring Provider Active Start: October 03, 2024 End: October 03, 2024 KRISTOFER Hernández Attending Provider Active Star t: October 03, 2024 End: October 03, 2024 Team Status: Active Member Role/Relationship Status Dates Dr. Nando Wiggins MD Primary Care Provider Active Start: October 08, 2024 Nando SHERWOOD MD Attending Provider Active Start: October 08, 2024 Nando SHERWOOD MD Referring Provider Active Start: October 08, 2024 Team Status: Active Member Role/Relationship Status Dates Dr. Nando Wiggins MD Primary Care Provider Active Start: October 16, 2024 Nando SHERWOOD MD Attending Provider Active Start: October 16, 2024 Team Status: Inactive Member Role/Relationship Status Dates Dr. Nando Wiggins MD Primary Care Provider Active Start: October 17, 2024 End: October 17, 2024 Dr. Nando Wiggins MD Referring Provider Active Start: October 17, 2024 End: October 17, 2024 KRISTOFER Hernández Attending Provider Active Star t: October 17, 2024 End: October 17, 2024 Team Status: Active Member Role/Relationship Status Dates Dr. Nando Wiggins MD Primary Care Provider Active Start: October 22, 2024 Nando SHERWOOD MD Attending Provider Active Start: October 22, 2024 Team Status: Active Member Role/Relationship Status Dates Dr. Nando Wiggins MD Primary Care Provider Active Start: October 29, 2024 Nando SHERWOOD MD Attending Provider Active Start: October 29, 2024 Nando SHERWOOD MD Referring Provider Active Start: October 29, 2024 Team Status: Inactive Member Role/Relationship Status Dates Dr. Jean Yan MD Referring Provider Active Start: October 29, 2024 End: October 29, 2024 Pooja Ruano KITCHEN FOOD SERVER, [employer]OD SERVER-C Attending Provider Active Start: October 29, 2024 End: October 29, 2024 Dr. Nando Wiggins MD Primary Care Provider Active Start: October 29, 2024 End: October 29, 2024 Team Status: Active Member Role/Relationship Status Dates Dr. Nando Wiggins MD Primary Care Provider Active Start: November 05, 2024 Nando SHERWOOD MD Attending Provider Active Start: November 05, 2024 Team Status: Inactive Member Role/Relationship Status Dates Dr. Nando Wiggins MD Primary Care Provider Active Start: November 08, 2024 End: November 09, 2024 Dr. Max Roberts DO Attending Provider Active Start : November 08, 2024 End: November 09, 2024 Dr. Max Roberts DO Referring Provider Active Start : November 08, 2024 End: November 09, 2024 Dr. Max Roberts DO Emergency Provider Active Start : November 08, 2024 End: November 09, 2024 Team Status: Active Member Role/Relationship Status Dates Dr. Nando Wiggins MD Primary Care Provider Active Start: November 12, 2024 Nando SHERWOOD MD Attending Provider Active Start: November 12, 2024 Team Status: Inactive Member Role/Relationship Status Dates Dr. Nando Wiggins MD Primary Care Provider Active Start: November 22, 2024 End: November 23, 2024 Dr. Lele Desai DO Emergency Provider Active Start: November 22, 2024 End: November 23, 2024 Team Status: Inactive Member Role/Relationship Status Dates Dr. Nando Wiggins MD Primary Care Provider Active Start: August 13, 2024 End: August 13, 2024 Nando SHERWOOD MD Attending Provider Active Start: August 13, 2024 End: August 13, 2024 Team Status: Active Member Role/Relationship Status Dates Dr. Nando Wiggins MD Primary Care Provider Active Start: August 13, 2024 Dr. Randal Damico MD Attending Provider Active Start: August 13, 2024 Dr. Randal Damico MD Referring Provider Active Start: August 13, 2024 Dr. Randal Damico MD Other Provider Active Star t: August 13, 2024 Team Status: Inactive Member Role/Relationship Status Dates Dr. Nando Wiggins MD Primary Care Provider Active Start: August 14, 2024 End: August 14, 2024 Dr. Nando Wiggins MD Attending Provider Active Start: August 14, 2024 End: August 14, 2024 Team Status: Active Member Role/Relationship Status Dates Dr. Nando Wiggins MD Primary Care Provider Active Start: August 20, 2024 Nando SHERWOOD MD Attending Provider Active Start: August 20, 2024 Team Status: Inactive Member Role/Relationship Status Dates Dr. Warren Mendoza DPM Referring Provider Active Start: August 20, 2024 End: August 20, 2024 Dr. Nando Wiggins MD Primary Care Provider Active Start: August 20, 2024 End: August 20, 2024 Dr. Randal Damico MD Attending Provider Active Start: August 20, 2024 End: August 20, 2024 Team Status: Active Member Role/Relationship Status Dates Dr. Nando Wiggins MD Primary Care Provider Active Start: August 20, 2024 Dr. Randal Damico MD Attending Provider Active Start: August 20, 2024 Dr. Randal Damico MD Referring Provider Active Start: August 20, 2024 Dr. Randal Damico MD Other Provider Active Star t: August 20, 2024 Team Status: Inactive Member Role/Relationship Status Dates Dr. Nando Wiggins MD Primary Care Provider Active Start: August 27, 2024 End: August 27, 2024 Nando SHERWOOD MD Attending Provider Active Start: August 27, 2024 End: August 27, 2024 Nando SHERWOOD MD Referring Provider Active Start: August 27, 2024 End: August 27, 2024 Team Status: Inactive Member Role/Relationship Status Dates Dr. Warren Mendoza DPM Referring Provider Active Start: August 27, 2024 End: September 19, 2024 Dr. Nando Wiggins MD Primary Care Provider Active Start: August 27, 2024 End: September 19, 2024 Dr. Randal Damico MD Attending Provider Active Start: August 27, 2024 End: September 19, 2024 Team Status: Active Member Role/Relationship Status Dates Dr. Warren Mendoza DPM Referring Provider Active Start: August 27, 2024 Dr. Nando Wiggins MD Primary Care Provider Active Start: August 27, 2024 Dr. Randal Damico MD Attending Provider Active Start: August 27, 2024 Dr. Randal Damico MD Other Provider Active Star t: August 27, 2024 Team Status: Active Member Role/Relationship Status Dates Dr. Nando Wiggins MD Primary Care Provider Active Start: August 28, 2024 Nando SHERWOOD MD Attending Provider Active Start: August 28, 2024 Team Status: Active Member Role/Relationship Status Dates Dr. Nando Wiggins MD Primary Care Provider Active Start: August 29, 2024 Dr. Lele White MD Admit Provider Active Start : August 29, 2024 Dr. Lele White MD Referring Provider Active S tart: August 29, 2024 Dr. Lele White MD Other Provider Active Start : August 29, 2024 Dr. Randal Damico MD Attending Provider Active Start: August 29, 2024 Dr. Randal Damico MD Other Provider Active Star t: August 29, 2024 Team Status: Active Member Role/Relationship Status Dates Dr. Nando Wiggins MD Primary Care Provider Active Start: August 29, 2024 Dr. Lele White MD Admit Provider Active Start : August 29, 2024 Dr. Lele White MD Attending Provider Active S tart: August 29, 2024 Dr. Lele White MD Referring Provider Active S tart: August 29, 2024 Dr. Lele White MD Other Provider Active Start : August 29, 2024 Dr. Randal Damico MD Other Provider Active Star t: August 29, 2024 Team Status: Inactive Member Role/Relationship Status Dates Dr. Nando Wiggins MD Primary Care Provider Active Start: August 29, 2024 End: September 04, 2024 Dr. Lele White MD Admit Provider Active Start : August 29, 2024 End: September 04, 2024 Dr. Lele White MD Attending Provider Active S tart: August 29, 2024 End: September 04, 2024 Dr. Lele White MD Referring Provider Active S tart: August 29, 2024 End: September 04, 2024 Dr. Randal Damico MD Other Provider Active Star t: August 29, 2024 End: September 04, 2024 Dr. Manuel Alva MD Other Provider Active Start: August 29, 2024 End: September 04, 2024 Team Status: Active Member Role/Relationship Status Dates Dr. Nando Wiggins MD Primary Care Provider Active Start: August 30, 2024 Dr. Lele White MD Admit Provider Active Start : August 30, 2024 Dr. Lele Wihte MD Referring Provider Active S tart: August 30, 2024 Dr. Lele White MD Other Provider Active Start : August 30, 2024 Dr. Randal Damico MD Attending Provider Active Start: August 30, 2024 Dr. Randal Damico MD Other Provider Active Star t: August 30, 2024 Dr. Manuel Alva MD Other Provider Active Start: August 30, 2024 Team Status: Active Member Role/Relationship Status Dates Dr. Nando Wiggins MD Primary Care Provider Active Start: August 30, 2024 Dr. Lele White MD Admit Provider Active Start : August 30, 2024 Dr. Lele White MD Referring Provider Active S tart: August 30, 2024 Dr. Llee White MD Other Provider Active Start : August 30, 2024 Dr. Randal Damico MD Other Provider Active Star t: August 30, 2024 Dr. Manuel Alva MD Other Provider Active Start: August 30, 2024 KRISTOFER Hernández Attending Provider Active Star t: August 30, 2024 Team Status: Active Member Role/Relationship Status Dates Dr. Nando Wiggins MD Primary Care Provider Active Start: August 31, 2024 Dr. Lele White MD Admit Provider Active Start : August 31, 2024 Dr. Lele White MD Referring Provider Active S tart: August 31, 2024 Dr. Lele White MD Other Provider Active Start : August 31, 2024 Dr. Randal Damico MD Other Provider Active Star t: August 31, 2024 Dr. Manuel Alva MD Other Provider Active Start: August 31, 2024 KRISTOFER Hernández Attending Provider Active Star t: August 31, 2024 Team Status: Active Member Role/Relationship Status Dates Dr. Nando Wiggins MD Primary Care Provider Active Start: August 31, 2024 Dr. Lele White MD Attending Provider Active S tart: August 31, 2024 KRISTOFER Hernández Referring Provider Active Star t: August 31, 2024 Team Status: Active Member Role/Relationship Status Dates Dr. Nanod Wiggins MD Primary Care Provider Active Start: August 31, 2024 Dr. Lele White MD Admit Provider Active Start : August 31, 2024 Dr. Lele White MD Referring Provider Active S tart: August 31, 2024 Dr. Lele White MD Other Provider Active Start : August 31, 2024 Dr. Randal Damioc MD Attending Provider Active Start: August 31, 2024 Dr. Randal Damico MD Other Provider Active Star t: August 31, 2024 Dr. Maunel Alva MD Other Provider Active Start: August 31, 2024 Team Status: Active Member Role/Relationship Status Dates Dr. Nando Wiggins MD Primary Care Provider Active Start: September 01, 2024 Dr. Lele White MD Admit Provider Active Start : September 01, 2024 Dr. Lele White MD Referring Provider Active S tart: September 01, 2024 Dr. Lele White MD Other Provider Active Start : September 01, 2024 Dr. Randal Damico MD Other Provider Active Star t: September 01, 2024 Dr. Manuel Alva MD Other Provider Active Start: September 01, 2024 KRISTOFER Hernández Attending Provider Active Star t: September 01, 2024 Team Status: Active Member Role/Relationship Status Dates Dr. Nando Wiggins MD Primary Care Provider Active Start: September 02, 2024 Dr. Lele White MD Admit Provider Active Start : September 02, 2024 Dr. Lele White MD Referring Provider Active S tart: September 02, 2024 Dr. Lele White MD Other Provider Active Start : September 02, 2024 Dr. Randal Damico MD Other Provider Active Star t: September 02, 2024 Dr. Manuel Alva MD Other Provider Active Start: September 02, 2024 KRISTOFER Hernández Attending Provider Active Star t: September 02, 2024 Team Status: Active Member Role/Relationship Status Dates Dr. Nando Wiggins MD Primary Care Provider Active Start: September 03, 2024 Dr. Lele White MD Admit Provider Active Start : September 03, 2024 Dr. Lele White MD Referring Provider Active S tart: September 03, 2024 Dr. Lele White MD Other Provider Active Start : September 03, 2024 Dr. Randal Damico MD Attending Provider Active Start: September 03, 2024 Dr. Randal Damico MD Other Provider Active Star t: September 03, 2024 Dr. Manuel Alva MD Other Provider Active Start: September 03, 2024 Team Status: Active Member Role/Relationship Status Dates Dr. Nando Wiggins MD Primary Care Provider Active Start: September 03, 2024 Dr. Lele White MD Admit Provider Active Start : September 03, 2024 Dr. Lele White MD Attending Provider Active S tart: September 03, 2024 Dr. Lele White MD Referring Provider Active S tart: September 03, 2024 Dr. Lele White MD Other Provider Active Start : September 03, 2024 Dr. Randal Damico MD Other Provider Active Star t: September 03, 2024 Dr. Manuel Alva MD Other Provider Active Start: September 03, 2024 Team Status: Active Member Role/Relationship Status Dates Dr. Nando Wiggins MD Primary Care Provider Active Start: September 04, 2024 Dr. Lele White MD Admit Provider Active Start : September 04, 2024 Dr. Lele White MD Referring Provider Active S tart: September 04, 2024 Dr. Lele White MD Other Provider Active Start : September 04, 2024 Dr. Randal Damico MD Other Provider Active Star t: September 04, 2024 Dr. Manuel Alva MD Other Provider Active Start: September 04, 2024 KRISTOFER Hernández Attending Provider Active Star t: September 04, 2024 Team Status: Inactive Member Role/Relationship Status Dates Dr. Nando Wiggins MD Primary Care Provider Active Start: September 05, 2024 End: September 05, 2024 Meredith Guevara [employer], [employer] Attending Provider Active Start: September 05, 2024 End: September 05, 2024 Team Status: Active Member Role/Relationship Status Dates Dr. Nando Wiggins MD Primary Care Provider Active Start: September 10, 2024 Nando SHERWOOD MD Attending Provider Active Start: September 10, 2024 Team Status: Inactive Member Role/Relationship Status Dates Dr. Nando Wiggins MD Primary Care Provider Active Start: September 12, 2024 End: September 12, 2024 Nando SHERWOOD MD Attending Provider Active Start: September 12, 2024 End: September 12, 2024 Team Status: Inactive Member Role/Relationship Status Dates Dr. Nando Wiggins MD Primary Care Provider Active Start: September 17, 2024 End: September 17, 2024 Nando SHERWOOD MD Attending Provider Active Start: September 17, 2024 End: September 17, 2024 Nando SHERWOOD MD Referring Provider Active Start: September 17, 2024 End: September 17, 2024 Team Status: Inactive Member Role/Relationship Status Dates Dr. Nando Wiggins MD Primary Care Provider Active Start: September 24, 2024 End: September 24, 2024 Nando SHERWOOD MD Attending Provider Active Start: September 24, 2024 End: September 24, 2024 Team Status: Inactive Member Role/Relationship Status Dates Dr. Warren Mendoza DPM Referring Provider Active Start: September 24, 2024 End: October 18, 2024 Dr. Nando Wiggins MD Primary Care Provider Active Start: September 24, 2024 End: October 18, 2024 Dr. Randal Damico MD Attending Provider Active Start: September 24, 2024 End: October 18, 2024 Team Status: Active Member Role/Relationship Status Dates Dr. Warren Mendoza DPM Referring Provider Active Start: September 24, 2024 Dr. Nando Wiggins MD Primary Care Provider Active Start: September 24, 2024 Dr. Randal Damico MD Attending Provider Active Start: September 24, 2024 Dr. Randal Damico MD Other Provider Active Star t: September 24, 2024 Team Status: Inactive Member Role/Relationship Status Dates Dr. Nando Wiggins MD Primary Care Provider Active Start: October 02, 2024 End: October 02, 2024 Nando SHERWOOD MD Attending Provider Active Start: October 02, 2024 End: October 02, 2024 Team Status: Inactive Member Role/Relationship Status Dates Dr. Nando Wiggins MD Primary Care Provider Active Start: October 03, 2024 End: October 03, 2024 Dr. Nando Wiggins MD Referring Provider Active Start: October 03, 2024 End: October 03, 2024 KRISTOFER Hernández Attending Provider Active Star t: October 03, 2024 End: October 03, 2024 Team Status: Active Member Role/Relationship Status Dates Dr. Nando Wiggins MD Primary Care Provider Active Start: October 08, 2024 Nando SHERWOOD MD Attending Provider Active Start: October 08, 2024 Nando SHERWOOD MD Referring Provider Active Start: October 08, 2024 Team Status: Active Member Role/Relationship Status Dates Dr. Nando Wiggins MD Primary Care Provider Active Start: October 16, 2024 Nando SHERWOOD MD Attending Provider Active Start: October 16, 2024 Team Status: Inactive Member Role/Relationship Status Dates Dr. Nando Wiggins MD Primary Care Provider Active Start: October 16, 2024 End: October 16, 2024 Dr. Nando Wiggins MD Attending Provider Active Start: October 16, 2024 End: October 16, 2024 Team Status: Inactive Member Role/Relationship Status Dates Dr. Nando Wiggins MD Primary Care Provider Active Start: October 17, 2024 End: October 17, 2024 Dr. Nando Wiggins MD Referring Provider Active Start: October 17, 2024 End: October 17, 2024 KRISTOFER Hernández Attending Provider Active Star t: October 17, 2024 End: October 17, 2024 Team Status: Active Member Role/Relationship Status Dates Dr. Nando Wiggins MD Primary Care Provider Active Start: October 22, 2024 Nando SHERWOOD MD Attending Provider Active Start: October 22, 2024 Team Status: Active Member Role/Relationship Status Dates Dr. Nando Wiggins MD Primary Care Provider Active Start: October 29, 2024 Nando SHERWOOD MD Attending Provider Active Start: October 29, 2024 Nando SHERWOOD MD Referring Provider Active Start: October 29, 2024 Team Status: Inactive Member Role/Relationship Status Dates Dr. Jena Yan MD Referring Provider Active Start: October 29, 2024 End: October 29, 2024 Pooja Ruano [employer], [employer] Attending Provider Active Start: October 29, 2024 End: October 29, 2024 Dr. Nando Wiggins MD Primary Care Provider Active Start: October 29, 2024 End: October 29, 2024 Team Status: Active Member Role/Relationship Status Dates Dr. Nando Wiggins MD Primary Care Provider Active Start: November 05, 2024 Nando SHERWOOD MD Attending Provider Active Start: November 05, 2024 Team Status: Inactive Member Role/Relationship Status Dates Dr. Nando Wiggins MD Primary Care Provider Active Start: November 08, 2024 End: November 09, 2024 Dr. Max Roberts DO Attending Provider Active Start : November 08, 2024 End: November 09, 2024 Dr. Max Roberts DO Referring Provider Active Start : November 08, 2024 End: November 09, 2024 Dr. Max Roberts DO Emergency Provider Active Start : November 08, 2024 End: November 09, 2024 Team Status: Active Member Role/Relationship Status Dates Dr. Nando Wiggins MD Primary Care Provider Active Start: November 12, 2024 Nando SHERWOOD MD Attending Provider Active Start: November 12, 2024 Team Status: Inactive Member Role/Relationship Status Dates Dr. Nando Wiggins MD Primary Care Provider Active Start: November 22, 2024 End: November 23, 2024 Dr. Lele Desai DO Attending Provider Active Start: November 22, 2024 End: November 23, 2024 Dr. Lele Desai DO Emergency Provider Active Start: November 22, 2024 End: November 23, 2024 Team Status: Inactive Member Role/Relationship Status Dates Dr. Nando Wiggins MD Primary Care Provider Active Start: November 02, 2024 End: November 02, 2024 Meredith Guevara [employer], [employer] Attending Provider Active Start: November 02, 2024 End: November 02, 2024 Team Status: Active Member Role/Relationship Status Dates Dr. Nando Wigigns MD Primary Care Provider Active Start: November 05, 2024 Nando SHERWOOD MD Attending Provider Active Start: November 05, 2024 Team Status: Inactive Member Role/Relationship Status Dates Dr. Nando Wiggins MD Primary Care Provider Active Start: November 08, 2024 End: November 09, 2024 Dr. Max Roberts DO Attending Provider Active Start : November 08, 2024 End: November 09, 2024 Dr. Max Roberts DO Referring Provider Active Start : November 08, 2024 End: November 09, 2024 Dr. Max Roberts DO Emergency Provider Active Start : November 08, 2024 End: November 09, 2024 Team Status: Active Member Role/Relationship Status Dates Dr. Nando Wiggins MD Primary Care Provider Active Start: November 12, 2024 Nando SHERWOOD MD Attending Provider Active Start: November 12, 2024 Team Status: Inactive Member Role/Relationship Status Dates Dr. Nando Wiggins MD Primary Care Provider Active Start: November 22, 2024 End: November 23, 2024 Dr. Lele Desai DO Attending Provider Active Start: November 22, 2024 End: November 23, 2024 Dr. Lele Desai DO Emergency Provider Active Start: November 22, 2024 End: November 23, 2024 Backshoe Person Relationship Specialty Start Date End Date Husam Yan MD [address] [place], [place] [id number] PCP - General Family Medicine 10/14/16 PodlogarLauren APRN.DIRECT SUPPORT PROFESSIONAL [address] [place], [place] [id number] Formerly [facility], [facility]–1983 04/28/24 Yesenia Yi APRN.DIRECT SUPPORT PROFESSIONAL [address] [place], [place] [id number] Formerly [facility], [facility]–1983 11/01/24 Goals (unrecognized section and content) Goals may be documented in a n alternate section No data available for this section (unrecognized sect ion and content) No Status Records FoundNo Status Records FoundNo Status Records Found INFORMATION SOURCE (unrecogn ized section and content) DATE CREATED AUTHOR 09/16/2023 [facility] DATE CREATED AUTHOR AUTHOR'S ORGANIZ ATION 12/09/2024 [facility] DATE CREATED AUTHOR AUTHOR'S ORGANIZ ATION 12/10/2024 [facility] FOR RECORDS PERTAINING TO PATIENTS WHO [...] BE BASED ON THE PRIMARY CLINICAL RECORDS. [facility]. provides no warranty or guarantee of the accuracy or completeness of information in this document.
[2024-12-12 08:22] LABS: AST(SGOT) 33 U/L (<=37); Alanine Aminotransfer ALT/SGPT 49 U/L (<=46); Albumin, Serum 3.6 g/dL (3.4-4.8); Alkaline Phosphatase 71 U/L (40-129); Bilirubin, Direct 0.13 mg/dL (0.00-0.30); Globulin 3.2 g/dL (2.2-4.2)
[2024-12-12 08:35] LABS: Vitamin B12 719 pg/mL (180-914); Vitamin D,25 Hydroxy 49.9 ng/mL (30-100)
== END ==
LOC: OLS.WHLEAS 05:00
PROVIDERS: PCP Internal Medicine; Visit Provider Internal Medicine
DX: E11.22 Type 2 diabetes mellitus with diabetic chronic kidney disease (principal); N18.6 End stage renal disease
CPT/HCPCS: 36415; 80076; 82306; 82607; 83036

== ENCOUNTER → 2024-12-19 05:00 | Outpatient (REF) | payer MEDICARE, SELFPAY ==
--- OUTSIDE RECORDS SUMMARY | 2024-12-19 04:10 | XMS RPT_ITS | CCD ---
Author Organization [place] [employer] [facility] Care Team Providers Care Rn Med Surg Name Role Phone Patricia HALL, Alanna aJcobson Unavailable Unavailable Carmen Hurt Unavailable Unavailable ISABEL Kraus, Bernarda Raymundo Unavailable Unavailabl desiree Gomez RN, Alanna Jacobson Unavailable Unavailable Carmen [...] Husam Yan MD Primary Care Provider Podlogar THERAPY ASSISTANT.MIRROR MAKER, Lauren Unavailable Dr. Jean Yan MD Primary Care Provider Nando Wiggins MD Attending Provider Unavailuzma Ruelas DPM, Dr. Nunes Attending Provider Suraj DPM, Dr. Nunes Referring Provider Rosalie AVILA, Dr. Collier Primary Care Provider Paola WHEEL CUTTER-C, Meredith Attending Provider Nando Wiggins MD Referring Provider Unavaila mariya Mendoza DPM, Dr. Kelley Referring Provider Yuriy [...] Silviano AVILA, Dr. Tee Other Provider Jose DPM, Dr. Bahena Other Provider Herbert DIEZ, Dr. [...] Provider Christopher AVILA, Dr. Elliott Admit Provider Christopher AVILA, Dr. Elliott Referring Provider Christopher AVILA, Dr. Elliott Other Provider Salma Dugan Referring Provider Rosalie AVILA, Dr. Collier Referring Provider Rosalie AVILA, Dr. Collier Primary Care Provider Nando Wiggins MD Attending Provider Meredith Serna Attending Provider Dr. Warren Mendoza DPM Referring Provider Nando Wiggins MD Referring Provider Unavailuzma Wiggins MD, Dr. Collier Primary Care Provider Salma Dugan Attending Provider Dr. Nando Wiggins MD Primary Care Provider Meredith Maradiaga Attending Provider Artie AVILA, Dr. Jackson Other Provider Nando Wiggins MD Attending Provider Ag Mendoza DPM, Dr. Kelley Referring Provider Dr. Randal Damico MD Attending Provider Dr. Jean Yan MD Referring Provider Pooja Cohen Attending Provider Alejandra DIEZ, Dr. Santana Referring Provider Dr. Max Roberts DO Emergency Provider Dr. Nando Wiggins MD Primary Care Provider Nando Wiggins MD Attending Provider Ag Mendoza DPM, Dr. Kelley Referring Provider Dr. Randal Damico MD Attending Provider Dr. Randal Damico MD Other Provider Paola [place]-CMeredith Attending Provider Christopher AVILA, Dr. Elliott Attending Provider Artie AVILA, Dr. Jackson Other Provider Dr. Max Roberts DO Attending Provider Dr. Lele Desai DO Emergency Provider Dr. Nando Wiggins MD Primary Care Provider Nando Wiggins MD Attending Provider Unavailuzma Damico MD, Dr. Tee Attending Provider Dr. Randal Damico MD Referring Provider Dr. Randal Damico MD Other Provider Dr. Warren Mendoza DPM Referring Provider Paola [place]-CMeredith Attending Provider Dr. Lele Desai DO Attending Provider Kassidy THERAPY ASSISTANT.MIRROR MAKER, Yesenia Unavailable Warren Mendoza Referring Unavailable Randal Damico Attending Unavailable Holliee, Efewongwolf Primary Care Unavailable Oleghe Deb SHERWOODongwolf Attending Unavailabl e Oleghe, Efewongbe Primary Care Unavailable Oleghe Nando SHERWOOD Attending Unavailabl e Oleghe, Efewongbe Primary Care Unavailable Osuna, Jayla Admitting Unavailable Osuna, Jayla Consulting Unavailable Margarette Godinez Attending Unavailable Chung Humphreys Referring Unavailable Oleghe, Efewongbe Primary Care Unavailable Navin, Juan Antonio Consulting Unavailable Silviano, Randal Consulting Unavailable Artie, Jayaprakas Consulting Unavailable Jose, Josef Consulting Unavailable Warren Mendoza Consulting Unavailable Enrrique, Jayla Admitting Unavailable Renuka Holdensh Attending Unavailable [facility] Jean Primary Care Unavailable Artie, Jayaprakas Consulting Unavailable Osuna, Jayla Consulting Unavailable Silviano, Randal Consulting Unavailable Christopher, Lele Consulting Unavailable TerFernando pearson Consulting Unavailable Jopperi, Lele Consulting Unavailable Navin, Juan Antonio Consulting Unavailable Jayla Osuna Attending Unavailable [facility], Jean Primary Care Unavailable Jayla Osuna Attending Unavailable Oleghe OLS, Efewongbe Referring Unavailabl e Oleghe OLS, Efewongbe Attending Unavailabl e Bursley, Jean Primary Care Unavailable Oleghe OLS, Efewongbe Attending Unavailabl e Oleghe, Efewongbe Primary Care Unavailable Oleghe OLS, Efewongbe Attending Unavailabl e Oleghe, Efewongbe Primary Care Unavailable [place], Lele Referring Unavailable [place], Lele Admitting Unavailable Sulaiman Whiteic Attending Unavailable Siska, Randal Consulting Unavailable Oleghe, Efewongbe Primary Care Unavailable Artie, Jayaprakas Consulting Unavailable Des Ruelas Attending Unavailable Warren Mendoza Referring Unavailable Bursley, Jean Primary Care Unavailable Warren Mendoza Referring Unavailable Randal Damico Attending Unavailable Oleghe, Efewongbe Primary Care Unavailable Warren Mendoza Attending Unavailable Warren Mendoza Referring Unavailable Bursley, Jean Primary Care Unavailable Warren Mendoza Referring Unavailable Siska, Randal Consulting Unavailable Sisdhaval Randal Attending Unavailable Oleghe, Efewongbe Primary Care Unavailable Warren Mendoza Referring Unavailable Siska, Randal Consulting Unavailable Siska Randal Attending Unavailable Oleghe, Efewongbe Primary Care Unavailable Osuna, Jayla Admitting Unavailable Jose, Josef Consulting Unavailable Chung Humphreys Referring Unavailable Oleghe, Efewongbe Primary Care Unavailable Juan nAtonio Holden Attending Unavailable Artie, Jayaprakas Consulting Unavailable Osuna, Jayla Consulting Unavailable Silviano, Randal Consulting Unavailable Navin, Juan Antonio Consulting Unavailable Deni Shields Attending Unavailable Michelle Montgomerys F Consulting Unavailable Kotsonis, Jaswant F Admitting Unavailable Bursley, Jean Primary Care Unavailable Randal Shore Consulting Unavailable Tanphaichitr, Natthavat Consulting Unavaila mariya [place], Des Consulting Unavailable Lele White Consulting Unavailable Deni Shields Referring Unavailable Salma Cervantes Attending Unavailable RickieoniNahum novoaJaswant F Consulting Unavailable Kotsonis, Jaswant F Admitting Unavailable Bursley, Jean Primary Care Unavailable Silviano Randal Consulting Unavailable Tanphaichitr, Natthavat Consulting Unavaila ble [place], Des Consulting Unavailable [place], Lele Consulting Unavailable Deni Shields Consulting Unavailable Jaswant Montgomery F Attending Unavailable Oleghe, Efewongbe Primary Care Unavailable Tickton WHEEL CUTTER, Meredith Attending Unavailable Oleghe, Efewongbe Primary Care Unavailable [place] WHEEL CUTTER, Meredith Attending Unavailable Oleghe, Efewongbe Primary Care Unavailable [place] WHEEL CUTTER, Meredith Attending Unavailable Oleghe, Efewongbe Primary Care Unavailable [place] WHEEL CUTTER, Meredith Attending Unavailable Oleghe, Efewongbe Primary Care Unavailable [place] WHEEL CUTTER, Meredith Attending Unavailable Oleghe, Efewongbe Primary Care Unavailable Oleghe, Efewongbe Attending Unavailable Oleghe, Efewongbe Primary Care Unavailable [place]ick[place] WHEEL CUTTER, Meredith Attending Unavailable Salma Cervantes Attending Unavailable Oleghe, Efewongbe Primary Care Unavailable Bursley, Jean Referring Unavailable Oleghe, Efewongbe Attending Unavailable Bursley, Jean Primary Care Unavailable [place] WHEEL CUTTER, Meredith Attending Unavailable Bursley, Jean Primary Care Unavailable Siska, Randal Consulting Unavailable Siska Randal Attending Unavailable Siska, Randal Referring Unavailable Oleghe, Efewongbe Primary Care Unavailable Siska, Randal Consulting Unavailable Siska, Randal Attending Unavailable Siska, Randal Referring Unavailable Oleghe, Efewongbe Primary Care Unavailable Lele Whiet Attending Unavailable Jayla Osuna Admitting Unavailable Chung Humphreys Referring Unavailable Oleghe, Efewongbe Primary Care Unavailable Jayla Osuna Consulting Unavailable Jayla Osuna Attending Unavailable Manuel Alva Consulting Unavailable Oleghe, Efewongbe Primary Care Unavailable Fernando Oliveros Attending Unavailable Fernando Oliveros Admitting Unavailable Fernando Oliveros Consulting Unavailable Oleghe, Efewongbe Primary Care Unavailable Eric Franklin Attending Unavailable Oleghe, Efewongbe Primary Care Unavailable Alicia Loo Attending Unavailable Oleghe, Efewongbe Primary Care Unavailable Des Garcia Attending Unavailable Oleghe OLS, Efewongbe Attending Unavailabl e Oleghe, Efewongbe Primary Care Unavailable Oleghe OLS, Efewongbe Attending Unavailabl e Bursley, Jean Primary Care Unavailable Des Ruelas Attending Unavailable Des Ruelas Referring Unavailable Bursley, Jean Primary Care Unavailable Manuel Alva Consulting Unavailable Oleghe, Efewongbe Primary Care Unavailable Fernando Oliveros Attending Unavailable Fernando Oliveros Admitting Unavailable Oleghe OLS, Efewongbe Attending Unavailabl e Oleghe, Efewongbe Primary Care Unavailable Oleghe OLS, Efewongbe Attending Unavailabl e Oleghe, Efewongbe Primary Care Unavailable Oleghe OLS, Efewongbe Attending Unavailabl e Bursley, Jean Primary Care Unavailable Oleghe, Efewongbe Primary Care Unavailable Oleghe OLS, Efewongbe Attending UnavailRandal Oh Attending Unavailable Oleghe, Efewongbe Primary Care Unavailable Warren Mendoza Referring Unavailable Jayla Osuna Attending Unavailable Margarette Godinez Attending Unavailable Margarette Godinez Consulting Unavailable Oleghe, Efewongbe Primary Care Unavailable Zenaida Cooper Attending UnavailLele Arroyo Attending Unavailable Jayla Osuna Referring Unavailable Oleghe, Efewongbe Primary Care Unavailable Lele White Attending Unavailable Jayla Osuna Referring Unavailable Oleghe, Efewongbe Primary Care Unavailable Randal Damico Consulting Unavailable SisRandal puentes Attending Unavailable Sisdhaval Randal Referring Unavailable Oleghe, Efewongbe Primary Care Unavailable Warren Mendoza Consulting Unavailable Warren Mendoza Referring Unavailable Salma Cervantes Attending Unavailable Bursley, Jean Primary Care Unavailable Christopher, Lele Consulting Unavailable Lele White Attending Unavailable [place], Lele Referring Unavailable Bursley, Jean Primary Care Unavailable Warren Mendoza Referring Unavailable Randal Damico Consulting Unavailable Randal Damico Attending Unavailable Oleghe, Efewongbe Primary Care Unavailable Cervantes, Salma Attending Unavailable Oleghe, Efewongbe Primary Care Unavailable Oleghe, Efewongbe Referring Unavailable Christopher, Lele Referring Unavailable [place], Lele Admitting Unavailable Christopher, Lele Attending Unavailable Siska, Rnadal Consulting Unavailable Oleghe, Efewongbe Primary Care Unavailable [place], Lele Consulting Unavailable Siska, Randal Attending Unavailable Artie, Jayaprakas Consulting Unavailable Christopher, Lele Referring Unavailable Christopher, Lele Admitting Unavailable Siska, Randal Consulting Unavailable Cervantes, Salma Attending Unavailable Oleghe, Efewongbe Primary Care Unavailable Artie, Jayaprakas Consulting Unavailable [place], Lele Consulting Unavailable Oleghe OLS, Efewongbe Referring Unavailabl e Oleghe OLS, Efewongbe Attending Unavailabl e Oleghe, Efewongbe Primary Care Unavailable Oleghe OLS, Efewongbe Attending Unavailabl e Oleghe, Efewongbe Primary Care Unavailable Oleghe OLS, Efewongbe Referring Unavailabl e Oleghe OLS, Efewongbe Attending Unavailabl e Oleghe, Efewongbe Primary Care Unavailable Oleghe, Efewongbe Primary Care Unavailable SchwLele oscar Attending Unavailable Belal, Farouk Consulting Unavailable Oleghe, Efewongbe Primary Care Unavailable Max Roberts Attending Unavailable Max Roberts Referring Unavailable Deni Shields Attending Unavailable Oleghe OLS, [...] Unavailabl e Oleghe, Efewongbe Primary Care Unavailable Jean Yan Primary Care Unavailable Yunior Davey Attending Unavailable [...] Primary Care Unavailable Randal Damico Attending Unavailable Lele White Attending Unavailable Warren Mendoza Referring Unavailable aRndal Damico Consulting Unavailable Randal Damico Attending Unavailable Oleghe, Efewongbe Primary Care Unavailable Fernando Oliveros Attending Unavailable Salma Cervantes Attending Unavailable Fernando Oliveros Referring Unavailable Lele Mora Attending Unavailable Lele White Referring Unavailable Lele White Attending Unavailable Bursley, Jean Primary Care Unavailable Oleghe OLS, Efewongbe Referring Unavailabl e Oleghe OLS, Efewongbe Attending Unavailabl e Oleghe, Efewongbe Primary Care Unavailable Oleghe OLS, Efewongbe Attending Unavailabl e Oleghe, Efewongbe Primary Care Unavailable Warren Mendoza Consulting Unavailable Jayla Osuna Admitting Unavailable Juan Antonio Holden Attending Unavailable Bursley, Jean Primary Care Unavailable Manuel Alva Consulting Unavailable Jayla Osuna Consulting Unavailable Randal Shore Consulting Unavailable Lele White Consulting Unavailable Fernando Oliveros Consulting Unavailable Lele Mora Consulting Unavailable Oleghe, Efewongbe Primary Care Unavailable Meredith Guevara NP Attending Unavailable Oleghe, Efewongbe Primary Care Unavailable Meredith Guevara NP Attending Unavailable Salma Cervantes Attending Unavailable Oleghe, Efewongbe Primary Care Unavailable Oleghe, Efewongbe Referring Unavailable Salma Cervantes Attending Unavailable Oleghe, Efewongbe Primary Care Unavailable Oleghe, Efewongbe Referring Unavailable Oleghe, Efewongbe Primary Care Unavailable Pooja Ruano NP Attending Unavailable Bursley, Jean Referring Unavailable Oleghe, Efewongbe Primary Care Unavailable Oleghe, Efewongbe Attending Unavailable Oleghe, Efewongbe Primary Care Unavailable Meredith Guevara NP Attending Unavailable Warren Jackson Attending Unavailable Bursley, Jean Primary Care Unavailable Itz Mahan Referring Unavailable Lele White Attending Unavailable Jayla Osuna Referring Unavailable Bursley, Jean Primary Care Unavailable Lele White Attending Unavailable Wes Cervantesison Referring Unavailable Oleghe, Efewongbe Primary Care Unavailable Deni Shields Referring Unavailable Billy, Salma Attending Unavailable Bursley, Jean Primary Care Unavailable Lele White Attending Unavailable Billy, Salma Referring Unavailable Oleghe OLS, Efewongbe Attending Unavailabl e Bursley, Jean Primary Care Unavailable Oleghe OLS, Efewongbe Attending Unavailabl e Bursley, Jean Primary Care Unavailable Oleghe OLS, Efbiancaongbe Attending Unavailabl e Bursley, Jean Primary Care Unavailable Billy, Salma Attending Unavailable Cervantes, Salma Referring Unavailable Oleghe, Efewongbe Primary Care Unavailable BURSLEY, CHRISTOPHER B Primary Care Unavailab le BURSLEY, CHRISTOPHER B Primary Care Unavailab le PODLOGAR, LAUREN Attending Unavailable DANILO MARTINES Referring Unavailable PODLOGARLAUREN Attending Unavailable BURSLEY, CHRISTOPHER B Primary Care Unavailab le PODLOGARLAUREN Referring Unavailable BURSLEY, CHRISTOPHER B Primary Care Unavailab LELE Joseph Referring Unavailable ANGEL GODINEZ Attending Unavailable ANGEL GODINEZ Admitting Unavailable BURSLEY, CHRISTOPHER B Primary Care Unavailab le Allergies Allergy Classification Reported Allergen(s) Allergy Type Date of Onset Reaction(s) Facility (20 sources) atenolol; Translations: [ATENOLOL] allergy to substance 0 GI Upset [facility] Work Phone: (17 sources) pioglitazone drug allergy 7 fatigue [facility] Work Phone: (12 sources) simvastatin drug allergy 7 myalgia [facility] Work Phone: (12 sources) SITagliptin drug allergy 7 [facility] Work Phone: (20 sources) pioglitazone; Translations: [PIOGLITAZONE HCL] Drug Allergy 7 Other: See Comments [facility] Work Phone: (20 sources) Simvastatin; Translations: [SIMVASTATIN] Drug Allergy 7 myalgia [facility] Work Phone: (20 sources) SITagliptin; Translations: [SITAGLIPTIN] Drug Allergy 4 Other: See Comments [facility] (9 sources) pioglitazone Drug Allergy 2 fatigue [facility] (13 sources) semaglutide; Translations: [SEMAGLUTIDE] Drug Allergy 4 GI Upset [facility] (1 source) pioglitazone Drug Allergy 5 [facility] Repository (1 source) Simvastatin Drug Allergy 5 [facility] Repository (1 source) SITagliptin Drug Allergy 5 [facility] Repository Medications Current Medications Medication Drug [...] TBEC One tablet by mouth daily ASPIRIN [id number] Bernarda Kraus RN Start: 04-06-2013 take 1 [...] One tablet by mouth daily CHOLECALCIFEROL CAPS [id number] Laron Bacon MD take 1 tablet by [...] daily. docusate sodium 50 mg / sennosides, detention 8.6 mg oral tablet (16 sources) Start: [...] One tablet by mouth daily AMLODIPINE BESYLATE [id number] Bernarda Kraus RN amoxicillin 250 mg / [...] TABS One tablet by mouth daily ATENOLOL [id number] Bernarda Kraus RN B COMPLEX VITAMINS (2 sources) Start: 10-27-2016 take 1 tablet by mouth once daily B COMPLEX-B12 TABS One tablet by mouth daily B COMPLEX VITAMINS [id number] Laron Bacon MD B COMPLEX VITAMINS (3 sources) Start: 10-27-2016 take 1 tablet by mouth once daily B COMPLEX-B12 TABS One tablet by mouth daily B COMPLEX VITAMINS [id number] Laron Bacon MD cephalexin 500 mg oral capsule (9 sources) Cephalosporin Antibacterial Start: 10-13-2020 End: 10-18-2020 cinnamon bark 500 mg oral capsule (7 sources) Start: 10-26-2016 take 1 tablet by mouth once daily CINNAMON 500 MG CAPS One tablet by mouth daily CINNAMON [id number] Bernarda Kraus RN clopidogrel 75 mg oral [...] Start: 10-21-2021 take 1 tablet by davin once daily Vitamin F26-Xgfed Acid Active 1 TABLET PO DAILY October [...] TABS One tablet by mouth daily GLIPIZIDE [id number] Bernarda Kraus RN Comment on above: Take [...] TABS One tablet by mouth daily HYDROCHLOROTHIAZIDE [id number] Laron Bacon MD sodium hypochlorite 2.5 mg/ml topical solution (16 sources) Start: 07-20-2024 End: 09-02-2024 3 ml insulin lispro 100 unt/ml pen injector (20 sources) Insulin Analog Start: 04-24-2024 End: 07-20-2024 krill oil (5 sources) Start: 10-27-2016 take 1 tablet by mouth once daily HM MEGAKRILL CAPS One tablet by mouth daily KRILL OIL CAPS [id number] Laron Bacon MD 3 ml liraglutide 6 mg/ml pen injector (16 sources) GLP-1 Receptor Agonist Start: 05-12-2017 End: 05-04-2018 Start: 05-12-2017 End: 05-04-2018 Liraglutide Discontinued SC 6 60 May 12, 2017 1:00am May 04, 2018 10:45am Start: 10-26-2016 NICOLE novoa directed LIRAGLUTIDE SOLN [id number] Bernarda Kraus RN lisinopril 40 mg oral tablet (16 sources) Angiotensin Converting Enzyme Inhibitor Start: 05-12-2017 End: 05-02-2020 Start: 10-26-2016 take 1 tablet by davin once daily ZESTRIL 40 MG TABS One tablet by mouth daily LISINOPRIL [id number] Bernarda Kraus RN methylsulfonylmethane (5 sources) Start: 10-27-2016 take 1 tablet by mouth once daily [facility] MSM CAPS One tablet by mouth daily METHYLSULFONYLMETHANE CAPS [id number] Laron Bacon MD metoprolol tartrate 25 mg oral tablet (9 sources) beta-Adrenergi c Prakash Start: 04-18-2020 End: 05-02-2020 miconazole nitrate 20 mg/ml topical cream (8 sources) Azole Antifungal Start: 04-24-2024 End: 05-10-2024 nystatin 508057 unt/ml topical cream (8 sources) Polyene Antifungal [...] long-term current use of insulin ([facility]) Inject 0.5 mg subcutaneously one time a [...] Acute and unspecified renal failure (9 sources) [id number] renal failure; Translations: [Acute kidney failure, unspecified] [...] [Essential hypertension] Onset: 5 10-26-2016 Chronic Gangrene (17 sources) 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 arteries of extremities with gangrene, right leg; Translations: [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 artery of right leg with gangrene] Onset: [...] Onset: 5 Episodic Other connective tissue disease (9 sources) [...] examination and observation following other accident] Onset: Episodic Other lower respiratory disease (9 sources) [...] (4 sources) Long-term drug therapy; 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] Onset: 7 10-26-2016 Past or Other Problems Problem Classification Problem Date Documented Date Episodic/Chronic Bacterial infection; unspecified site (15 sources) Bacteremia due to Methicillin resistant Staphylococcus aureus; Translations: [Bacteremia] Onset: 07-22-2024 07-16-2024 Episodic Conditions associated with dizziness or vertigo (9 sources) Dizziness; Translations: [Dizziness and giddiness] Onset: 07-19-2024 07-15-2024 Episodic Fluid and electrolyte disorders (20 sources) Hyperkalemia; Translations: [Hyperkalemia] Onset: 07-18-2024 07-11-2024 [...] 09-22-2011 Episodic Other aftercare (3 sources) Other halfway (current) drug therapy; Translations: [Other halfway (current) drug therapy] Onset: 10-26-2016 10-26-2016 Episodic Other aftercare (1 source) Encounter for change or removal of nonsurgical wound dressing; Translations: [Encounter for change or removal of nonsurgical wound dressing] Onset: 08-09-2024 Episodic Other aftercare (1 source) 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; Translations: [Type 2 [...] Test Name Value Interpretation Reference Range Facility [facility] 12-11-2024 CNPN Normal [facility] Basic metabolic 2000 panelon 11-28-2024 Anion gap [Moles/Vol] 10 mmol/L Normal 8-15 [facility] Comment on above: Order Comment: Lesvia aleman Type: BLOOD SPECIMENOrdering Facility: [facility] Address: [address] [place] [address] Performed By: #### 2 4321-2, ####[facility] LABCLIA [id number] [place] [id number] [place] Calcium [Mass/Vol] 8.8 mg/dL Normal 8.5-10.2 [facility] Comment on above: Order Comment: Lesvia aleman Type: BLOOD SPECIMENOrdering Facility: [facility] Address: [address] [place] [address] Performed By: #### 2 4321-2, ####[facility] LABCLIA [id number] [address] [address] [place] Chloride [Moles/Vol] 96 mmol/L Low 98-107 [facility] Comment on above: Order Comment: Speci men Type: BLOOD SPECIMENOrdering Facility: [facility] Address: [address] [place] [address] Performed By: #### 2 4321-2, ####[facility] LABCLIA [id number] [place] [id number] [place] CO2 [Moles/Vol] 26 mmol/L Normal 22-30 [facility] Comment on above: Order Comment: Speci men Type: BLOOD SPECIMENOrdering Facility: [facility] Address: [address] [place] [address] Performed By: #### 2 432-2, ####[facility] LABIA [id number] [place] [address] [place] Creatinine [Mass/Vol] 2.74 mg/dL High 0.73-1.22 [facility] Comment on above: Order Comment: Speci men Type: BLOOD SPECIMENOrdering Facility: [facility] Address: [address] [place] [address] Performed By: #### 2 432-2, ####[facility] LABIA [id number] [place] [id number] [place] [facility] Creatinine and Glomerular filtration rate.predicted panel (S/P/Bld) 22 mL/min/1.73m??? Low >=60 [facility] Comment on above: Order Comment: Speci men Type: BLOOD SPECIMENOrdering Facility: [facility] Address: [address] [place] [address] Result Comment: Tessa mated Glomerular Filtration Rate [...] reflect actual GFR. Performed By: #### 2 43205-24, ####[facility] LABIA [id number] [address] [address] [place] Glucose [Mass/Vol] 153 mg/dL High 74-99 [facility] Comment on above: Order Comment: Speci men Type: BLOOD SPECIMENOrdering Facility: [facility] Address: [address] [place] [address] Result Comment: The [place] [employer] (ADA) provides guidance for cutoff [...] Standards of Medical Care in Diabetes 2016, [place] [employer]. Diabetes Care. 2016.39(Suppl 1). Performed By: #### 2 4320-06, ####[facility] LABIA [id number] [place] [id number] [place] Potassium [Moles/Vol] 4.4 mmol/L Normal 3.7-5.1 [facility] Comment on above: Order Comment: Speci men Type: BLOOD SPECIMENOrdering Facility: [facility] Address: [address] [id number] Performed By: #### 2 43205-24, ####[facility] [id number] [place] [id number] [place] Sodium [Moles/Vol] 132 mmol/L Low 136-144 [facility] Comment on above: Order Comment: Speci men Type: BLOOD SPECIMENOrdering Facility: [facility] Address: [address] [id number] Performed By: #### 2 4321-2, ####[facility] LABCLIA [id number] [address] [address] [place] Urea nitrogen [Mass/Vol] 22 mg/dL Normal 9-24 [facility] Comment on above: Order Comment: Speci men Type: BLOOD SPECIMENOrdering Facility: [facility] Address: [address] [place] [address] Performed By: #### 2 4321-2, ####[facility] LABIA [id number] [address] [place] [address] [place] CASE MANAGEMon 11-28-2024 CASE MANAGEM Normal [facility] CBC panel Auto (Bld)on 11-28 Erythrocyte distribution width (RBC) [Ratio] 15.9 % High 11.5-15.0 [facility] Comment on above: Order Comment: Speci men Type: BLOOD SPECIMENOrdering Facility: [facility] Address: [address] [place] [address] Performed By: #### 5 8410-2 ####[facility] LABIA [id number] [address] [place] [id number] [place] Hematocrit (Bld) [Volume fraction] 33.2 % Low 39.0-51.0 [facility] Comment on above: Order Comment: Speci men Type: BLOOD SPECIMENOrdering Facility: [facility] Address: [address] [place] [address] Performed By: #### 5 8410-2 ####[facility] LABIA [id number] [address] [address] [place] Hemoglobin (Bld) [Mass/Vol] 10.4 g/dL Low 13.0-17.0 [facility] Comment on above: Order Comment: Speci men Type: BLOOD SPECIMENOrdering Facility: [facility] Address: [address] [place] [address] Performed By: #### 5 8410-2 ####[facility] LABIA [id number] [place] [address] [place] MCH (RBC) [Entitic mass] 28.3 pg Normal 26.0-34.0 [facility] Comment on above: Order Comment: Speci men Type: BLOOD SPECIMENOrdering Facility: [facility] Address: [address] [place] [address] Performed By: #### 5 8410-2 ####[facility] LABIA [id number] [place] [address] [place] MCHC (RBC) [Mass/Vol] 31.3 g/dL Normal 30.5-36.0 [facility] Comment on above: Order Comment: Speci men Type: BLOOD SPECIMENOrdering Facility: [facility] Address: [address] [place] [address] Performed By: #### 5 8410-2 ####[facility] [id number] [place] [address] [place] MCV (RBC) [Entitic vol] 90.2 fL Normal 80.0-100.0 [facility] Comment on above: Order Comment: Speci men Type: BLOOD SPECIMENOrdering Facility: [facility] Address: [address] [place] [address] Performed By: #### 5 8410-2 ####[facility] [id number] [place] [address] [place] Nucleated RBC (Bld) [#/Vol] 10*3/uL Normal <0.01 [facility] Comment on above: Order Comment: Speci men Type: BLOOD SPECIMENOrdering Facility: [facility] Address: [address] [place] [address] Performed By: #### 5 8410-2 ####[facility] [id number] [id number] [address] [place] Platelet mean volume (Bld) [Entitic vol] 12.8 fL High 9.0-12.7 [facility] Comment on above: Order Comment: Speci men Type: BLOOD SPECIMENOrdering Facility: [facility] Address: [address] [place] [address] Performed By: #### 5 8410-2 ####[facility] LABCLIA [id number] [place] [address] [place] Platelets (Bld) [#/Vol] 126 10*3/uL Low 150-400 [facility] Comment on above: Order Comment: Speci men Type: BLOOD SPECIMENOrdering Facility: [facility] Address: [address] [place] [address] Performed By: #### 5 8410-2 ####[facility] LABCLIA [id number] [place] [address] [place] RBC (Bld) [#/Vol] 3.68 10*6/uL Low 4.20-6.00 [facility] Comment on above: Order Comment: Speci men Type: BLOOD SPECIMENOrdering Facility: [facility] Address: [address] [place] [address] Performed By: #### 5 8410-2 ####[facility] LABIA [id number] [place] [address] [place] WBC (Bld) [#/Vol] 7.99 10*3/uL Normal 3.70-11.00 [facility] Comment on above: Order Comment: Speci men Type: BLOOD SPECIMENOrdering Facility: [facility] Address: [address] [place] [address] Performed By: #### 5 8410-2 ####[facility] LABCLIA [id number] [address] [id number] [place] CNDSon 11-28-2024 CNDS Normal [facility] CONSULT PROGon 11-28-2024 CONSULT PROG Normal [facility] Magnesium SerPl-mCncon 11-28 Magnesium [Mass/Vol] 2.1 mg/dL Normal 1.7-2.3 [facility] Comment on above: Order Comment: Speci men Type: BLOOD SPECIMENOrdering Facility: [facility] Address: [address] [place] [address] Performed By: #### 2 4321-2, 43008-2 ####[facility] LABCLIA [id number] [place] [address] [place] THERAPY NTon 11-28-2024 THERAPY NT Normal [facility] XR CHEST 1V FRONTAL PORTon 0 11-28-2024 XR CHEST 1V FRONTAL PORT Normal [facility] ALLIED HEALTHon 11-27-2024 ALLIED HEALTH Normal [facility] ARTERIAL BLOOD GASESon 11-27 Base excess Calc (Bld) [Moles/Vol] 4 mmol/L High 0-2 [facility] Comment on above: Order Comment: Speci men Type: ARTERIAL BLOOD SPECIMENOrdering Facility: [facility] Address: [address] [place] [address] Performed By: #### A LLBG ####[facility] LABIA [id number] [place] [address] [place] Body temperature 97.88 [degF] Normal [facility] Comment on above: Order Comment: Speci men Type: ARTERIAL BLOOD SPECIMENOrdering Facility: [facility] Address: [address] [place] [address] Performed By: #### A LLBG ####[facility] LABCLIA [id number] [place] [address] [place] Calcium.ionized (Bld) [Mass/Vol] 1.10 mmol/L Normal 1.08-1.30 [facility] Comment on above: Order Comment: Speci men Type: ARTERIAL BLOOD SPECIMENOrdering Facility: [facility] Address: [address] [place] [address] Performed By: #### A LLBG ####[facility] LABCLIA [id number] [place] [address] [place] Calcium.ionized adjusted to pH 7.4 (BldA) [Moles/Vol] 1.10 mmol/L Normal 1.08-1.30 [facility] Comment on above: Order Comment: Speci men Type: ARTERIAL BLOOD SPECIMENOrdering Facility: [facility] Address: [address] [place] [address] Performed By: #### A LLBG ####[facility] LABIA [id number] [place] [address] [place] Carboxyhemoglobin (BldA) [Mass fraction] 1.2 % Normal 0.0-2.0 [facility] Comment on above: Order Comment: Speci men Type: ARTERIAL BLOOD SPECIMENOrdering Facility: [facility] Address: [address] [place] [address] Result Comment: Carb oxyhemoglobin Reference Range for Smokers: 2.0-8.0% Performed By: #### A LLBG ####[facility] LABCLIA [id number] [place] [address] [place] CO2 (Bld) [Partial pressure] 48 mm Hg High 36-46 [facility] Comment on above: Order Comment: Speci men Type: ARTERIAL BLOOD SPECIMENOrdering Facility: [facility] Address: [address] [place] [address] Performed By: #### A LLBG ####[facility] LABCLIA [id number] [address] [id number] [place] CO2 adjusted to patient's actual temperature (Bld) [Partial pressure] 47 mmHg High 36-46 [facility] Comment on above: Order Comment: Speci men Type: ARTERIAL BLOOD SPECIMENOrdering Facility: [facility] Address: [address] [place] [address] Performed By: #### A LLBG ####[facility] LABCLIA [id number] [address] [place] [address] [place] Glucose [Mass/Vol] 164 mg/dL High 60-105 [facility] Comment on above: Order Comment: Speci men Type: ARTERIAL BLOOD SPECIMENOrdering Facility: [facility] Address: [address] [place] [address] Performed By: #### A LLBG ####[facility] LABCLIA [id number] [place] [address] [place] HCO3 (Bld) [Moles/Vol] 29 mmol/L High 22-26 [facility] Comment on above: Order Comment: Speci men Type: ARTERIAL BLOOD SPECIMENOrdering Facility: [facility] Address: [address] [place] [address] Performed By: #### A LLBG ####[facility] LABCLIA [id number] [place] [address] [place] Hematocrit (Bld) [Volume fraction] 32.8 % Low 39.0-51.0 [facility] Comment on above: Order Comment: Speci men Type: ARTERIAL BLOOD SPECIMENOrdering Facility: [facility] Address: [address] [place] [address] Performed By: #### A LLBG ####[facility] LABCLIA [id number] [address] [id number] [place] Hemoglobin (Bld) [Mass/Vol] 10.6 g/dL Low 13.0-17.0 [facility] Comment on above: Order Comment: Speci men Type: ARTERIAL BLOOD SPECIMENOrdering Facility: [facility] Address: [address] [place] [address] Performed By: #### A LLBG ####[facility] LABCLIA [id number] [address] [id number] [place] Lactate [Moles/Vol] 1.2 mmol/L Normal 0.5-2.2 [facility] Comment on above: Order Comment: Speci men Type: ARTERIAL BLOOD SPECIMENOrdering Facility: [facility] Address: [address] [place] [address] Performed By: #### A LLBG ####[facility] LABCLIA [id number] [address] [place] [address] [place] Methemoglobin (Bld) [Mass fraction] 1.5 % Normal 0.0-1.5 [facility] Comment on above: Order Comment: Speci men Type: ARTERIAL BLOOD SPECIMENOrdering Facility: [facility] Address: [address] [place] [address] Performed By: #### A LLBG ####[facility] LABCLIA [id number] [address] [address] [place] O2 THERAPY RA=Room Air Normal [facility] Comment on above: Order Comment: Speci men Type: ARTERIAL BLOOD SPECIMENOrdering Facility: [facility] Address: [address] [place] [address] Performed By: #### A LLBG ####[facility] LABCLIA [id number] [address] [place] [address] [place] Oxygen (Bld) [Partial pressure] 114 mm Hg High 85-95 [facility] Comment on above: Order Comment: Speci men Type: ARTERIAL BLOOD SPECIMENOrdering Facility: [facility] Address: [address] [place] [address] Performed By: #### A LLBG ####[facility] LABCLIA [id number] [address] [place] [address] [place] Oxygen adjusted to patient's actual temperature (Bld) [Partial pressure] 111 mmHg High 85-95 [facility] Comment on above: Order Comment: Speci men Type: ARTERIAL BLOOD SPECIMENOrdering Facility: [facility] Address: [address] [place] [address] Performed By: #### A LLBG ####[facility] LABCLIA [id number] [address] [place] [address] [place] Oxyhemoglobin (BldA) [Mass fraction] 95 % Normal 95-98 [facility] Comment on above: Order Comment: Speci men Type: ARTERIAL BLOOD SPECIMENOrdering Facility: [facility] Address: [address] [place] [address] Performed By: #### A LLBG ####[facility] LABCLIA [id number] [place] [address] [place] pH (Bld) 7.40 [pH] Normal 7.35-7.45 [facility] Comment on above: Order Comment: Speci men Type: ARTERIAL BLOOD SPECIMENOrdering Facility: [facility] Address: [address] [place] [address] Performed By: #### A LLBG ####[facility] LABCLIA [id number] [place] [address] [place] pH adjusted to patient's actual temperature (Bld) 7.41 Normal 7.35-7.45 [facility] Comment on above: Order Comment: Speci men Type: ARTERIAL BLOOD SPECIMENOrdering Facility: [facility] Address: [address] [place] [address] Performed By: #### A LLBG ####[facility] LABCLIA [id number] [place] [address] [place] PO2 / FIO2 RATIO 543 mmHg Normal >300 [facility] Comment on above: Order Comment: Speci men Type: ARTERIAL BLOOD SPECIMENOrdering Facility: [facility] Address: [address] [place] [address] Performed By: #### A LLBG ####[facility] LABIA [id number] [place] [address] [place] Potassium [Moles/Vol] 4.3 mmol/L Normal 3.5-5.0 [facility] Comment on above: Order Comment: Speci men Type: ARTERIAL BLOOD SPECIMENOrdering Facility: [facility] Address: [address] [place], [place] [address] Performed By: #### A LLBG ####[facility] LABCLIA [id number] [address] [place] [id number] [place] Sodium [Moles/Vol] 132 mmol/L Low 136-144 [facility] Comment on above: Order Comment: Speci men Type: ARTERIAL BLOOD SPECIMENOrdering Facility: [facility] Address: [address] [place] [address] Performed By: #### A LLBG ####[facility] LABIA [id number] [address] [place] [id number] [place] BUN p dialysis SerPl-mCncon 11-27-2024 Urea nitrogen post dialysis [Mass/Vol] 18 mg/dL Normal 02-13 [facility] Comment on above: Order Comment: Speci men Type: BLOOD SPECIMENOrdering Facility: [facility] Address: [address] [place] [address] Performed By: #### 1 1064-3 ####[facility] [id number] [address] [place] [address] [place] BUN pre dial SerPl-mCncon Urea nitrogen pre dialysis [Mass/Vol] 50 mg/dL High - [facility] Comment on above: Order Comment: Speci men Type: BLOOD SPECIMENOrdering Facility: [facility] Address: [address] [place] [address] Performed By: #### 1 1065-0 ####[facility] LABIA [id number] [address] [place] [id number] [place] Basic Metabolic Profile (BMP )on 11-27-2024 BUN Normal 4-19 [facility] Comment on above: Result Comment: Solomon magaña OM: Ordered Performed By: #### L 100.0100, L500.2500 ####[facility] [address] [place], [place], [id number] BUN/CRE Normal 10-20 [facility] Comment on above: Result Comment: Canc elled via OM: MD Ordered Performed By: #### L 100.0100, L500.2500 ####[facility] [address] [place], [address] Calcium Normal 7.6-11.0 [facility] Comment on above: Result Comment: Canc elled via OM: MD Ordered Performed By: #### L 100.0100, L500.2500 ####[facility] [address] [place], [address] CL Normal 98-108 [facility] Comment on above: Result Comment: Canc elled via OM: MD Ordered Performed By: #### L 100.0100, L500.2500 ####[facility] [address] [place], [address] CO2 Normal 21.0-32.0 [facility] Comment on above: Result Comment: Canc elled via OM: MD Ordered Performed By: #### L 100.0100, L500.2500 ####[facility] [address] [place], [address] CREAT,SERUM Normal 0.70-1.20 [facility] Comment on above: Result Comment: Canc elled via OM: MD Ordered Performed By: #### L 100.0100, L500.2500 ####[facility] [address] [place], [address] eGFR Normal >60 [facility] Comment on above: Result Comment: Canc elled via OM: MD Ordered Performed By: #### L 100.0100, L500.2500 ####[facility] [address] [place], [address] GAP Normal 5-15 [facility] Comment on above: Result Comment: Canc elled via OM: MD Ordered Performed By: #### L 100.0100, L500.2500 ####[facility] [address] [place], [address] GLU Normal 70-99 [facility] Comment on above: Result Comment: Canc elled via OM: MD Ordered Performed By: #### L 100.0100, L500.2500 ####[facility] [address] [place], [address] Potassium Normal 3.3-5.1 [facility] Comment on above: Result Comment: Canc elled via OM: MD Ordered Performed By: #### L 100.0100, L500.2500 ####[facility] [address] [place], [address] Basic Metabolic Profile (BMP) Normal 133-145 [facility] Comment on above: Result Comment: Canc elled via OM: MD Ordered Performed By: #### L 100.0100, L500.2500 ####[facility] [address] [place], [address] CASE MANAGEMon 07-08-2024 CASE MANAGEM Normal [facility] CBC W/Diff, Automatedon 07-0 Absolute Neut Normal 2.0-7.7 [facility] Comment on above: Result Comment: Canc elled via OM: MD Ordered Performed By: #### L 100.0100, L500.2500 ####[facility] [address] [place], [address] HCT Normal 40-54 [facility] Comment on above: Result Comment: Canc elled via OM: MD Ordered Performed By: #### L 100.0100, L500.2500 ####[facility] [address] [place], [address] HGB Normal 13.0-16.5 [facility] Comment on above: Result Comment: Canc elled via OM: MD Ordered Performed By: #### L 100.0100, L500.2500 ####[facility] [address] [place], [address] MCH Normal 27.0-32.0 [facility] Comment on above: Result Comment: Canc elled via OM: MD Ordered Performed By: #### L 100.0100, L500.2500 ####[facility] [address] [place], [address] MCHC Normal 32-36 [facility] Comment on above: Result Comment: Canc elled via OM: MD Ordered Performed By: #### L 100.0100, L500.2500 ####[facility] [address] [place], [address] MCV Normal 80-94 [facility] Comment on above: Result Comment: Canc elled via OM: MD Ordered Performed By: #### L 100.0100, L500.2500 ####[facility] [address] [place], [address] NEUT% Normal 47-70 [facility] Comment on above: Result Comment: Canc elled via OM: MD Ordered Performed By: #### L 100.0100, L500.2500 ####[facility] [address] [place], [address] PLT Normal 150-450 [facility] Comment on above: Result Comment: Canc elled via OM: MD Ordered Performed By: #### L 100.0100, L500.2500 ####[facility] [address] [place], [address] RBC Normal 4.6-6.2 [facility] Comment on above: Result Comment: Canc elled via OM: MD Ordered Performed By: #### L 100.0100, L500.2500 ####[facility] [address] [place], [address] RDW CV Normal 11.6-14.6 [facility] Comment on above: Result Comment: Canc elled via OM: MD Ordered Performed By: #### L 100.0100, L500.2500 ####[facility] [address] [place], [address] RDW SD Normal 35.1-43.9 [facility] Comment on above: Result Comment: Canc elled via OM: MD Ordered Performed By: #### L 100.0100, L500.2500 ####[facility] [address] [place], [address] WBC Normal 4.4-11.0 [facility] Comment on above: Result Comment: Canc elled via OM: MD Ordered Performed By: #### L 100.0100, L500.2500 ####[facility] [address] [place], [address] CBC panel Auto (Bld)on 11-27 Erythrocyte distribution width (RBC) [Ratio] 15.8 % High 11.5-15.0 [facility] Comment on above: Order Comment: Speci men Type: BLOOD SPECIMENOrdering Facility: [facility] Address: [address] [place] [address] Performed By: #### 5 8410-2 ####[facility] LABIA [id number] [place] [address] [place] Hematocrit (Bld) [Volume fraction] 31.4 % Low 39.0-51.0 [facility] Comment on above: Order Comment: Speci men Type: BLOOD SPECIMENOrdering Facility: [facility] Address: [address] [place] [address] Performed By: #### 5 8410-2 ####[facility] LABIA [id number] [place] [id number] [place] Hemoglobin (Bld) [Mass/Vol] 10.1 g/dL Low 13.0-17.0 [facility] Comment on above: Order Comment: Speci men Type: BLOOD SPECIMENOrdering Facility: [facility] Address: [address] [place] [address] Performed By: #### 5 8410-2 ####[facility] LABIA [id number] [place] [address] [place] MCH (RBC) [Entitic mass] 28.4 pg Normal 26.0-34.0 [facility] Comment on above: Order Comment: Speci men Type: BLOOD SPECIMENOrdering Facility: [facility] Address: [address] [place] [address] Performed By: #### 5 8410-2 ####[facility] LABIA [id number] [place] [address] [place] MCHC (RBC) [Mass/Vol] 32.2 g/dL Normal 30.5-36.0 [facility] Comment on above: Order Comment: Speci men Type: BLOOD SPECIMENOrdering Facility: [facility] Address: [address] [place] [address] Performed By: #### 5 8410-2 ####[facility] LABIA [id number] [place] [address] [place] MCV (RBC) [Entitic vol] 88.2 fL Normal 80.0-100.0 [facility] Comment on above: Order Comment: Speci men Type: BLOOD SPECIMENOrdering Facility: [facility] Address: [address] [place] [address] Performed By: #### 5 8410-2 ####[facility] [facility] [id number] [place] [address] [place] Nucleated RBC (Bld) [#/Vol] 10*3/uL Normal <0.01 [facility] Comment on above: Order Comment: Speci men Type: BLOOD SPECIMENOrdering Facility: [facility] Address: [address] [place] [address] Performed By: #### 5 8410-2 ####[facility] LABIA [id number] [address] [id number], [place] [address] [place] Platelet mean volume (Bld) [Entitic vol] 12.9 fL High 9.0-12.7 [facility] Comment on above: Order Comment: Speci men Type: BLOOD SPECIMENOrdering Facility: [facility] Address: [address] [place] [address] Performed By: #### 5 8410-2 ####[facility]IA [id number] [place] [address] [place] Platelets (Bld) [#/Vol] 141 10*3/uL Low 150-400 [facility] Comment on above: Order Comment: Speci men Type: BLOOD SPECIMENOrdering Facility: [facility] Address: [address] [place] [address] Performed By: #### 5 8410-2 ####[facility]IA [id number] [place] [address] [place] RBC (Bld) [#/Vol] 3.56 10*6/uL Low 4.20-6.00 [facility] Comment on above: Order Comment: Speci men Type: BLOOD SPECIMENOrdering Facility: [facility] Address: [address] [place] [address] Performed By: #### 5 8410-2 ####[facility]IA [id number] [place] [address] [place] WBC (Bld) [#/Vol] 8.24 10*3/uL Normal 3.70-11.00 [facility] Comment on above: Order Comment: Speci men Type: BLOOD SPECIMENOrdering Facility: [facility] Address: [address] [place] [address] Performed By: #### 5 8410-2 ####[facility]IA [id number] [place] [id number] [place] CONSULT PROGon 11-27-2024 CONSULT PROG Normal [facility] CONSULT PROG Normal [facility] Comprehensive metabolic 2000 panelon 11-27-2024 Albumin [Mass/Vol] 3.1 g/dL Low 3.9-4.9 [facility] Comment on above: Order Comment: Speci men Type: BLOOD SPECIMENOrdering Facility: [facility] Address: [address] [place] [address] Performed By: #### 2 4323-8, 44255-4, 2776-1 ####[facility] LABCLIA [id number] [facility] [place] [id number] [place] ALP [Catalytic activity/Vol] 62 U/L Normal 38-113 [facility] Comment on above: Order Comment: Speci men Type: BLOOD SPECIMENOrdering Facility: [facility] Address: [address] [place] [address] Performed By: #### 2 4323-8, 67427-9, 2776- ####[facility] LABCLIA [id number] [place] [address] [place] ALT [Catalytic activity/Vol] 30 U/L Normal 10-54 [facility] Comment on above: Order Comment: Speci men Type: BLOOD SPECIMENOrdering Facility: [facility] Address: [address] [place] [address] Performed By: #### 2 4323-8, 58669-8, 2776- ####[facility] LABCLIA [id number] [place] [address] [place] Anion gap [Moles/Vol] 13 mmol/L Normal 8-15 [facility] Comment on above: Order Comment: Speci men Type: BLOOD SPECIMENOrdering Facility: [facility] Address: [address] [place] [address] Performed By: #### 2 4323-8, 15765-7, 2776-1 ####[facility] LABCLIA [id number] [facility] [address] [address] [place] AST [Catalytic activity/Vol] 23 U/L Normal 14-40 [facility] Comment on above: Order Comment: Speci men Type: BLOOD SPECIMENOrdering Facility: [facility] Address: [address] [place] [address] Result Comment: Resu lts may be falsely increased due to interference from hemolysis. Suggest reorder as clinically indicated. Performed By: #### 2 4323-8, , 2776-05 ####[facility] LABCLIA [id number] [place] [address] [place] Bilirubin [Mass/Vol] 0.2 mg/dL Normal 0.2-1.3 [facility] Comment on above: Order Comment: Speci men Type: BLOOD SPECIMENOrdering Facility: [facility] Address: [address] [place] [address] Performed By: #### 2 4323-8, , 2776-05 ####[facility] LABCLIA [id number] [place] [address] [place] Calcium [Mass/Vol] 8.6 mg/dL Normal 8.5-10.2 [facility] Comment on above: Order Comment: Speci men Type: BLOOD SPECIMENOrdering Facility: [facility] Address: [address] [place] [address] Performed By: #### 2 4323-8, , 2776-05 ####[facility] LABCLIA [id number] [place] [address] [place] Chloride [Moles/Vol] 93 mmol/L Low 98-107 [facility] Comment on above: Order Comment: Speci men Type: BLOOD SPECIMENOrdering Facility: [facility] Address: [address] [place] [address] Performed By: #### 2 4323-8, , 2776-05 ####[facility]CL[id number] [facility] [address] [address] [place] CO2 [Moles/Vol] 27 mmol/L Normal 22-30 [facility] Comment on above: Order Comment: Speci men Type: BLOOD SPECIMENOrdering Facility: [facility] Address: [address] [place] [address] Performed By: #### 2 4323-8, , 2776-05 ####[facility] LABCLIA [id number] [place] [address] [place] Creatinine [Mass/Vol] 4.19 mg/dL High 0.73-1.22 [facility] Comment on above: Order Comment: Speci men Type: BLOOD SPECIMENOrdering Facility: [facility] Address: [address] [place] [address] Performed By: #### 2 4323-8, , 2776-05 ####[facility] LABCLIA [id number] [place] [address] [place] Creatinine and Glomerular filtration rate.predicted panel (S/P/Bld) 13 mL/min/1.73m??? Low >=60 [facility] Comment on above: Order Comment: Ruddyi ash Type: BLOOD SPECIMENOrdering Facility: [facility] Address: [address] [place] [address] Result Comment: Tessa mated Glomerular Filtration Rate [...] Performed By: #### 2 4323-8, , 2776-05 ####[facility] LABCLIA [id number] [place] [id number] [place] Glucose [Mass/Vol] 174 mg/dL High 74-99 [facility] Comment on above: Order Comment: Speci men Type: BLOOD SPECIMENOrdering Facility: [facility] Address: [address] [place] [id number] Result Comment: The [place] [employer] (ADA) provides guidance for cutoff [...] Standards of Medical Care in Diabetes 2016, [place] [employer]. Diabetes Care. 2016.39(Suppl 1). Performed By: #### 2 4323-8, , 2776-05 ####[facility] LABCLIA [id number] [place] [address] [place] Potassium [Moles/Vol] 4.2 mmol/L Normal 3.7-5.1 [facility] Comment on above: Order Comment: Speci men Type: BLOOD SPECIMENOrdering Facility: [facility] Address: [address] [place] [id number] Performed By: #### 2 4323-8, , 2776-05 ####[facility] LABCLIA [id number] [place] [address] [place] Protein [Mass/Vol] 6.0 g/dL Low 6.3-8.0 [facility] Comment on above: Order Comment: Speci men Type: BLOOD SPECIMENOrdering Facility: [facility] Address: [address] [place] [address] Performed By: #### 2 4323-8, , 2776-05 ####[facility] LABCLIA [id number] [address] [address] [place] Sodium [Moles/Vol] 133 mmol/L Low 136-144 [facility] Comment on above: Order Comment: Speci men Type: BLOOD SPECIMENOrdering Facility: [facility] Address: [address] [place], [place] [address] Performed By: #### 2 4323-8, , 2776-05 ####[facility] LABCLIA [id number] [address] [address] [place] Urea nitrogen [Mass/Vol] 43 mg/dL High 9-24 [facility] Comment on above: Order Comment: Speci men Type: BLOOD SPECIMENOrdering Facility: [facility] Address: [address] [place], [place] [address] Performed By: #### 2 4323-8, , 2776-05 ####[facility] LABCLIA [id number] [place] [address] [place] Magnesium SerPl-mCncon 11-27 Magnesium [Mass/Vol] 2.2 mg/dL Normal 1.7-2.3 [facility] Comment on above: Order Comment: Speci men Type: BLOOD SPECIMENOrdering Facility: [facility] Address: [address] [place] [address] Performed By: #### 2 4323-8, , 2776-05 ####[facility] LABCLIA [id number] [place] [address] [place] Phosphate SerPl-mCncon 11-27 Phosphate [Mass/Vol] 5.9 mg/dL High 2.7-4.8 [facility] Comment on above: Order Comment: Speci men Type: BLOOD SPECIMENOrdering Facility: [facility] Address: [address] [place], [place] [address] Result Comment: Resu lt rechecked. Performed By: #### 2 4323-8, , 2776-05 ####[facility] LABCLIA [id number] [place] [address] [place] TYPE + SCREENon 11-27-2024 ABO A Normal [facility] Comment on above: Order Comment: Speci men Type: BLOOD SPECIMENOrdering Facility: [facility] Address: [address] [place] [address] Performed By: #### T SCR ####[facility] BANKCLIA [id number] [place] [address] [place] Rh Nom (Bld) Positive Normal [facility] Comment on above: Order Comment: Speci men Type: BLOOD SPECIMENOrdering Facility: [facility] Address: [address] [place] [address] Performed By: #### T SCR ####[facility] BANKCLIA [id number] [place] [address] [place] TYPE AND SCREEN EXPIRATION 11/30/2024 23:59 Normal [facility] Comment on above: Order Comment: Speci men Type: BLOOD SPECIMENOrdering Facility: [facility] Address: [address] [place] [address] Performed By: #### T SCR ####[facility] BANKCLIA [id number] [place] [address] [place] Urea nitrogen post dialysis [Mass/Vol]on 11-27-2024 UREA REDUCTION RATIO WITH BUNPR 64 % Normal [facility] Comment on above: Order Comment: Speci men Type: BLOOD SPECIMENOrdering Facility: [facility] Address: [address] [place] [address] Performed By: #### 1 1064-3 ####[facility] LABCLIA [id number] [place] [address] [place] XR CHEST 1V FRONTAL PORTon 0 11-27-2024 XR CHEST 1V FRONTAL PORT Normal [facility] XR CHEST 1V FRONTAL PORT Normal [facility] ANES POSTPROC EVALon 025 ANES POSTPROC EVAL Normal [facility] ANES PRE-OPon 11-26-2024 ANES PRE-OP Normal [facility] ARTERIAL BLOOD GASESon 11-26 Base excess Calc (Bld) [Moles/Vol] 4 mmol/L High 0-2 [facility] Comment on above: Order Comment: Speci men Type: ARTERIAL BLOOD SPECIMENOrdering Facility: [facility] Address: [address] [place] [address] Performed By: #### A LLBG ####[facility] LABCLIA [id number] [place] [address] [place] Body temperature 98.6 [degF] Normal [facility] Comment on above: Order Comment: Speci men Type: ARTERIAL BLOOD SPECIMENOrdering Facility: [facility] Address: [address] [place] [address] Performed By: #### A LLBG ####[facility] LABIA [id number] [place] [address] [place] Calcium.ionized (Bld) [Mass/Vol] 1.13 mmol/L Normal 1.08-1.30 [facility] Comment on above: Order Comment: Speci men Type: ARTERIAL BLOOD SPECIMENOrdering Facility: [facility] Address: [address] [place] [address] Performed By: #### A LLBG ####[facility] LABIA [id number] [place] [address] [place] Calcium.ionized adjusted to pH 7.4 (BldA) [Moles/Vol] 1.13 mmol/L Normal 1.08-1.30 [facility] Comment on above: Order Comment: Speci men Type: ARTERIAL BLOOD SPECIMENOrdering Facility: [facility] Address: [address] [place] [address] Performed By: #### A LLBG ####[facility] LABIA [id number] [place] [address] [place] Carboxyhemoglobin (BldA) [Mass fraction] 0.0 % Normal 0.0-2.0 [facility] Comment on above: Order Comment: Speci men Type: ARTERIAL BLOOD SPECIMENOrdering Facility: [facility] Address: [address] [place] [address] Result Comment: Carb oxyhemoglobin Reference Range for Smokers: 2.0-8.0% Performed By: #### A LLBG ####[facility] LABCLIA [id number] [place] [address] [place] CO2 (Bld) [Partial pressure] 48 mm Hg High 36-46 [facility] Comment on above: Order Comment: Speci men Type: ARTERIAL BLOOD SPECIMENOrdering Facility: [facility] Address: [address] [place] [address] Performed By: #### A LLBG ####[facility] LABCLIA [id number] [place] [address] [place] Glucose [Mass/Vol] 146 mg/dL High 60-105 [facility] Comment on above: Order Comment: Speci men Type: ARTERIAL BLOOD SPECIMENOrdering Facility: [facility] Address: [address] [place] [address] Performed By: #### A LLBG ####[facility] LABCLIA [id number] [place] [address] [place] HCO3 (Bld) [Moles/Vol] 29 mmol/L High 22-26 [facility] Comment on above: Order Comment: Speci men Type: ARTERIAL BLOOD SPECIMENOrdering Facility: [facility] Address: [address] [place] [address] Performed By: #### A LLBG ####[facility] LABCLIA [id number] [place] [address] [place] Hematocrit (Bld) [Volume fraction] 32.1 % Low 39.0-51.0 [facility] Comment on above: Order Comment: Speci men Type: ARTERIAL BLOOD SPECIMENOrdering Facility: [facility] Address: [address] [place] [address] Performed By: #### A LLBG ####[facility] LABCLIA [id number] [place] [id number] [place] Hemoglobin (Bld) [Mass/Vol] 10.4 g/dL Low 13.0-17.0 [facility] Comment on above: Order Comment: Speci men Type: ARTERIAL BLOOD SPECIMENOrdering Facility: [facility] Address: [address] [place] [address] Performed By: #### A LLBG ####[facility] LABCLIA [id number] [place] [address] [place] Lactate [Moles/Vol] 0.7 mmol/L Normal 0.5-2.2 [facility] Comment on above: Order Comment: Speci men Type: ARTERIAL BLOOD SPECIMENOrdering Facility: [facility] Address: [address] [place] [address] Performed By: #### A LLBG ####[facility] LABIA [id number] [place] [address] [place] LITERS 2 Liters/min Normal [facility] Comment on above: Order Comment: Speci men Type: ARTERIAL BLOOD SPECIMENOrdering Facility: [facility] Address: [address] [place] [address] Performed By: #### A LLBG ####[facility] LABIA [id number] [place] [address] [place] Methemoglobin (Bld) [Mass fraction] 0.5 % Normal 0.0-1.5 [facility] Comment on above: Order Comment: Speci men Type: ARTERIAL BLOOD SPECIMENOrdering Facility: [facility] Address: [address] [place] [address] Performed By: #### A LLBG ####[facility] LABIA [id number] [place] [address] [place] O2 THERAPY NC = Nasal Cannula Normal [facility] Comment on above: Order Comment: Speci men Type: ARTERIAL BLOOD SPECIMENOrdering Facility: [facility] Address: [address] [place] [address] Performed By: #### A LLBG ####[facility] LABCLIA [id number] [address] [address] [place] Oxygen (Bld) [Partial pressure] 158 mm Hg High 85-95 [facility] Comment on above: Order Comment: Speci men Type: ARTERIAL BLOOD SPECIMENOrdering Facility: [facility] Address: [address] [place] [address] Performed By: #### A LLBG ####[facility] LABCLIA [id number] [place] [id number] [place] Oxyhemoglobin (BldA) [Mass fraction] 97 % Normal 95-98 [facility] Comment on above: Order Comment: Speci men Type: ARTERIAL BLOOD SPECIMENOrdering Facility: [facility] Address: [address] [place] [address] Performed By: #### A LLBG ####[facility] LABIA [id number] [place] [id number] [place] pH (Bld) 7.40 [pH] Normal 7.35-7.45 [facility] Comment on above: Order Comment: Speci men Type: ARTERIAL BLOOD SPECIMENOrdering Facility: [facility] Address: [address] [place] [address] Performed By: #### A LLBG ####[facility] LABCLIA [id number] [place] [id number] [place] Potassium [Moles/Vol] 3.8 mmol/L Normal 3.5-5.0 [facility] Comment on above: Order Comment: Speci men Type: ARTERIAL BLOOD SPECIMENOrdering Facility: [facility] Address: [address] [place] [address] Performed By: #### A LLBG ####[facility] LABCLIA [id number] [place] [address] [place] Sodium [Moles/Vol] 134 mmol/L Low 136-144 [facility] Comment on above: Order Comment: Speci men Type: ARTERIAL BLOOD SPECIMENOrdering Facility: [facility] Address: [address] [place] [address] Performed By: #### A LLBG ####[facility] LABCLIA [id number] [place] [address] [place] Base excess Calc (Bld) [Moles/Vol] 4 mmol/L High 0-2 [facility] Comment on above: Order Comment: Speci men Type: ARTERIAL BLOOD SPECIMENOrdering Facility: [facility] Address: [address] [place] [address] Performed By: #### A LLBG ####[facility] LABCLIA [id number] [place] [address] [place] Body temperature 97.16 [degF] Normal [facility] Comment on above: Order Comment: Speci men Type: ARTERIAL BLOOD SPECIMENOrdering Facility: [facility] Address: [address] [place] [address] Performed By: #### A LLBG ####[facility] LABCLIA [id number] [place] [address] [place] Calcium.ionized (Bld) [Mass/Vol] 1.11 mmol/L Normal 1.08-1.30 [facility] Comment on above: Order Comment: Speci men Type: ARTERIAL BLOOD SPECIMENOrdering Facility: [facility] Address: [address] [place] [address] Performed By: #### A LLBG ####[facility] LABCLIA [id number] [place] [address] [place] Calcium.ionized adjusted to pH 7.4 (BldA) [Moles/Vol] 1.10 mmol/L Normal 1.08-1.30 [facility] Comment on above: Order Comment: Speci men Type: ARTERIAL BLOOD SPECIMENOrdering Facility: [facility] Address: [address] [place] [address] Performed By: #### A LLBG ####[facility] LABCLIA [id number] [place] [address] [place] Carboxyhemoglobin (BldA) [Mass fraction] 0.9 % Normal 0.0-2.0 [facility] Comment on above: Order Comment: Speci men Type: ARTERIAL BLOOD SPECIMENOrdering Facility: [facility] Address: [address] [place] [address] Result Comment: Carb oxyhemoglobin Reference Range for Smokers: 2.0-8.0% Performed By: #### A LLBG ####[facility] LABCLIA [id number] [place] [address] [place] CO2 (Bld) [Partial pressure] 48 mm Hg High 36-46 [facility] Comment on above: Order Comment: Speci men Type: ARTERIAL BLOOD SPECIMENOrdering Facility: [facility] Address: [address] [place] [address] Performed By: #### A LLBG ####[facility] LABCLIA [id number] [place] [address] [place] CO2 adjusted to patient's actual temperature (Bld) [Partial pressure] 46 mmHg Normal 36-46 [facility] Comment on above: Order Comment: Speci men Type: ARTERIAL BLOOD SPECIMENOrdering Facility: [facility] Address: [address] [place] [address] Performed By: #### A LLBG ####[facility] LABCLIA [id number] [place] [address] [place] Glucose [Mass/Vol] 105 mg/dL Normal 60-105 [facility] Comment on above: Order Comment: Speci men Type: ARTERIAL BLOOD SPECIMENOrdering Facility: [facility] Address: [address] [place] [address] Performed By: #### A LLBG ####[facility] LABCLIA [id number] [address] [address] [place] HCO3 (Bld) [Moles/Vol] 29 mmol/L High 22-26 [facility] Comment on above: Order Comment: Speci men Type: ARTERIAL BLOOD SPECIMENOrdering Facility: [facility] Address: [address] [place] [address] Performed By: #### A LLBG ####[facility] LABCLIA [id number] [place] [address] [place] Hematocrit (Bld) [Volume fraction] 33.0 % Low 39.0-51.0 [facility] Comment on above: Order Comment: Speci men Type: ARTERIAL BLOOD SPECIMENOrdering Facility: [facility] Address: [address] [place] [address] Performed By: #### A LLBG ####[facility] LABCLIA [id number] [place] [address] [place] Hemoglobin (Bld) [Mass/Vol] 10.7 g/dL Low 13.0-17.0 [facility] Comment on above: Order Comment: Speci men Type: ARTERIAL BLOOD SPECIMENOrdering Facility: [facility] Address: [address] [place] [address] Performed By: #### A LLBG ####[facility] LABCLIA [id number] [place] [address] [place] Lactate [Moles/Vol] 0.7 mmol/L Normal 0.5-2.2 [facility] Comment on above: Order Comment: Speci men Type: ARTERIAL BLOOD SPECIMENOrdering Facility: [facility] Address: [address] [place] [address] Performed By: #### A LLBG ####[facility] LABCLIA [id number] [place] [id number] [place] [place] 4 Liters/min Normal [facility] Comment on above: Order Comment: Speci men Type: ARTERIAL BLOOD SPECIMENOrdering Facility: [facility] Address: [address] [place] [address] Performed By: #### A LLBG ####[facility] LABCLIA [id number] [address] [address] [place] Methemoglobin (Bld) [Mass fraction] 1.0 % Normal 0.0-1.5 [facility] Comment on above: Order Comment: Speci men Type: ARTERIAL BLOOD SPECIMENOrdering Facility: [facility] Address: [address] [place] [address] Performed By: #### A LLBG ####[facility] LABCLIA [id number] [address] [address] [place] O2 THERAPY NC = Nasal Cannula Normal [facility] Comment on above: Order Comment: Speci men Type: ARTERIAL BLOOD SPECIMENOrdering Facility: [facility] Address: [address] [place] [id number] Performed By: #### A LLBG ####[facility] LABCLIA [id number] [address] [address] [place] Oxygen (Bld) [Partial pressure] 154 mm Hg High 85-95 [facility] Comment on above: Order Comment: Speci men Type: ARTERIAL BLOOD SPECIMENOrdering Facility: [facility] Address: [address] [place] [address] Performed By: #### A LLBG ####[facility] LABCLIA [id number] [address] [place] [address] [place] Oxygen adjusted to patient's actual temperature (Bld) [Partial pressure] 150 mmHg High 85-95 [facility] Comment on above: Order Comment: Speci men Type: ARTERIAL BLOOD SPECIMENOrdering Facility: [facility] Address: [address] [place] [address] Performed By: #### A LLBG ####[facility] LABCLIA [id number] [address] [address] [place] Oxyhemoglobin (BldA) [Mass fraction] 97 % Normal 95-98 [facility] Comment on above: Order Comment: Speci men Type: ARTERIAL BLOOD SPECIMENOrdering Facility: [facility] Address: [address] [place] [address] Performed By: #### A LLBG ####[facility] LABCLIA [id number] [place] [address] [place] pH (Bld) 7.40 [pH] Normal 7.35-7.45 [facility] Comment on above: Order Comment: Speci men Type: ARTERIAL BLOOD SPECIMENOrdering Facility: [facility] Address: [address] [place] [address] Performed By: #### A LLBG ####[facility] LABCLIA [id number] [place] [address] [place] pH adjusted to patient's actual temperature (Bld) 7.41 Normal 7.35-7.45 [facility] Comment on above: Order Comment: Speci men Type: ARTERIAL BLOOD SPECIMENOrdering Facility: [facility] Address: [address] [place] [address] Performed By: #### A LLBG ####[facility] LABCLIA [id number] [place] [id number] [place] Potassium [Moles/Vol] 3.7 mmol/L Normal 3.5-5.0 [facility] Comment on above: Order Comment: Speci men Type: ARTERIAL BLOOD SPECIMENOrdering Facility: [facility] Address: [address] [place] [address] Performed By: #### A LLBG ####[facility] LABCLIA [id number] [place] [address] [place] Sodium [Moles/Vol] 134 mmol/L Low 136-144 [facility] Comment on above: Order Comment: Speci men Type: ARTERIAL BLOOD SPECIMENOrdering Facility: [facility] Address: [address] [place] [address] Performed By: #### A LLBG ####[facility] LABCLIA [id number] [place] [address] [place] Base deficit (BldA) [Moles/Vol] -1 mmol/L Normal -2-0 [facility] Comment on above: Order Comment: Speci men Type: ARTERIAL BLOOD SPECIMENOrdering Facility: [facility] Address: [address] [place] [address] Performed By: #### A LLBG ####[facility] LABCLIA [id number] [place] [address] [place] Body temperature 97.7 [degF] Normal [facility] Comment on above: Order Comment: Speci men Type: ARTERIAL BLOOD SPECIMENOrdering Facility: [facility] Address: [address] [place] [address] Performed By: #### A LLBG ####[facility] LABCLIA [id number] [place] [address] [place] Calcium.ionized (Bld) [Mass/Vol] 1.10 mmol/L Normal 1.08-1.30 [facility] Comment on above: Order Comment: Speci men Type: ARTERIAL BLOOD SPECIMENOrdering Facility: [facility] Address: [address] [place] [address] Performed By: #### A LLBG ####[facility] LABCLIA [id number] [place] [address] [place] Calcium.ionized adjusted to pH 7.4 (BldA) [Moles/Vol] 1.09 mmol/L Normal 1.08-1.30 [facility] Comment on above: Order Comment: Speci men Type: ARTERIAL BLOOD SPECIMENOrdering Facility: [facility] Address: [address] [place] [address] Performed By: #### A LLBG ####[facility] LABCLIA [id number] [place] [address] [place] Carboxyhemoglobin (BldA) [Mass fraction] 1.0 % Normal 0.0-2.0 [facility] Comment on above: Order Comment: Speci men Type: ARTERIAL BLOOD SPECIMENOrdering Facility: [facility] Address: [address] [place] [address] Result Comment: Carb oxyhemoglobin Reference Range for Smokers: 2.0-8.0% Performed By: #### A LLBG ####[facility] LABCLIA [id number] [place] [address] [place] CO2 (Bld) [Partial pressure] 42 mm Hg Normal 36-46 [facility] Comment on above: Order Comment: Speci men Type: ARTERIAL BLOOD SPECIMENOrdering Facility: [facility] Address: [address] [place] [address] Performed By: #### A LLBG ####[facility] LABCLIA [id number] [place] [address] [place] CO2 adjusted to patient's actual temperature (Bld) [Partial pressure] 41 mmHg Normal 36-46 [facility] Comment on above: Order Comment: Speci men Type: ARTERIAL BLOOD SPECIMENOrdering Facility: [facility] Address: [address] [place] [address] Performed By: #### A LLBG ####[facility] LABCLIA [id number] [place] [id number] [place] Glucose [Mass/Vol] 81 mg/dL Normal 60-105 [facility] Comment on above: Order Comment: Speci men Type: ARTERIAL BLOOD SPECIMENOrdering Facility: [facility] Address: [address] [place] [address] Performed By: #### A LLBG ####[facility] LABCLIA [id number] [place] [id number] [place] HCO3 (Bld) [Moles/Vol] 24 mmol/L Normal 22-26 [facility] Comment on above: Order Comment: Speci men Type: ARTERIAL BLOOD SPECIMENOrdering Facility: [facility] Address: [address] [place] [address] Performed By: #### A LLBG ####[facility] LABIA [id number] [place] [address] [place] Hematocrit (Bld) [Volume fraction] 32.8 % Low 39.0-51.0 [facility] Comment on above: Order Comment: Speci men Type: ARTERIAL BLOOD SPECIMENOrdering Facility: [facility] Address: [address] [place] [address] Performed By: #### A LLBG ####[facility] LABIA [id number] [place] [address] [place] Hemoglobin (Bld) [Mass/Vol] 10.6 g/dL Low 13.0-17.0 [facility] Comment on above: Order Comment: Speci men Type: ARTERIAL BLOOD SPECIMENOrdering Facility: [facility] Address: [address] [place] [address] Performed By: #### A LLBG ####[facility] LABIA [id number] [place] [address] [place] Lactate [Moles/Vol] 0.5 mmol/L Normal 0.5-2.2 [facility] Comment on above: Order Comment: Speci men Type: ARTERIAL BLOOD SPECIMENOrdering Facility: [facility] Address: [address] [place] [address] Performed By: #### A LLBG ####[facility] LABIA [id number] [place] [address] [place] 2 Liters/min Normal [facility] Comment on above: Order Comment: Speci men Type: ARTERIAL BLOOD SPECIMENOrdering Facility: [facility] Address: [address] [place] [address] Performed By: #### A LLBG ####[facility] LABCLIA [id number] [address] [place] [address] [place] Methemoglobin (Bld) [Mass fraction] 0.9 % Normal 0.0-1.5 [facility] Comment on above: Order Comment: Speci men Type: ARTERIAL BLOOD SPECIMENOrdering Facility: [facility] Address: [address] [place] [address] Performed By: #### A LLBG ####[facility] LABCLIA [id number] [address] [place] [address] [place] O2 THERAPY [place] = Nasal Cannula Normal [facility] Comment on above: Order Comment: Speci men Type: ARTERIAL BLOOD SPECIMENOrdering Facility: [facility] Address: [address] [place] [address] Performed By: #### A LLBG ####[facility] LABCLIA [id number] [address] [place] [address] [place] Oxygen (Bld) [Partial pressure] 152 mm Hg High 85-95 [facility] Comment on above: Order Comment: Speci men Type: ARTERIAL BLOOD SPECIMENOrdering Facility: [facility] Address: [address] [place], [place] [address] Performed By: #### A LLBG ####[facility] LABCLIA [id number] [address] [place] [address] [place] Oxygen adjusted to patient's actual temperature (Bld) [Partial pressure] 149 mmHg High 85-95 [facility] Comment on above: Order Comment: Speci men Type: ARTERIAL BLOOD SPECIMENOrdering Facility: [facility] Address: [address] [place], [place] [address] Performed By: #### A LLBG ####[facility] LABCLIA [id number] [facility] [address] [place] [address] [place] Oxyhemoglobin (BldA) [Mass fraction] 97 % Normal 95-98 [facility] Comment on above: Order Comment: Speci men Type: ARTERIAL BLOOD SPECIMENOrdering Facility: [facility] Address: [address] [place] [address] Performed By: #### A LLBG ####[facility] LABCLIA [id number] [place] [id number] [place] pH (Bld) 7.37 [pH] Normal 7.35-7.45 [facility] Comment on above: Order Comment: Speci men Type: ARTERIAL BLOOD SPECIMENOrdering Facility: [facility] Address: [address] [place] [address] Performed By: #### A LLBG ####[facility] LABCLIA [id number] [place] [address] [place] pH adjusted to patient's actual temperature (Bld) 7.38 Normal 7.35-7.45 [facility] Comment on above: Order Comment: Speci men Type: ARTERIAL BLOOD SPECIMENOrdering Facility: [facility] Address: [address] [place] [address] Performed By: #### A LLBG ####[facility] LABCLIA [id number] [place] [address] [place] Potassium [Moles/Vol] 5.2 mmol/L High 3.5-5.0 [facility] Comment on above: Order Comment: Speci men Type: ARTERIAL BLOOD SPECIMENOrdering Facility: [facility] Address: [address] [place] [address] Performed By: #### A LLBG ####[facility] LABCLIA [id number] [place] [address] [place] Sodium [Moles/Vol] 128 mmol/L Low 136-144 [facility] Comment on above: Order Comment: Speci men Type: ARTERIAL BLOOD SPECIMENOrdering Facility: [facility] Address: [address] [place] [address] Performed By: #### A LLBG ####[facility] LABCLIA [id number] [place] [address] [place] Base deficit (BldA) [Moles/Vol] mmol/L Normal -2-0 [facility] Comment on above: Order Comment: Speci men Type: ARTERIAL BLOOD SPECIMENOrdering Facility: [facility] Address: [address] [place] [address] Performed By: #### A LLBG ####[facility] [id number] [place] [address] [place] Body temperature 97.52 [degF] Normal [facility] Comment on above: Order Comment: Speci men Type: ARTERIAL BLOOD SPECIMENOrdering Facility: [facility] Address: [address] [place] [address] Performed By: #### A LLBG ####[facility] [id number] [place] [address] [place] Calcium.ionized (Bld) [Mass/Vol] 1.07 mmol/L Low 1.08-1.30 [facility] Comment on above: Order Comment: Speci men Type: ARTERIAL BLOOD SPECIMENOrdering Facility: [facility] Address: [address] [place] [address] Performed By: #### A LLBG ####[facility] [id number] [place] [address] [place] Calcium.ionized adjusted to pH 7.4 (BldA) [Moles/Vol] 1.06 mmol/L Low 1.08-1.30 [facility] Comment on above: Order Comment: Speci men Type: ARTERIAL BLOOD SPECIMENOrdering Facility: [facility] Address: [address] [place] [address] Performed By: #### A LLBG ####[facility] [id number] [place] [address] [place] Carboxyhemoglobin (BldA) [Mass fraction] 0.4 % Normal 0.0-2.0 [facility] Comment on above: Order Comment: Speci men Type: ARTERIAL BLOOD SPECIMENOrdering Facility: [facility] Address: [address] [place] [address] Result Comment: Carb oxyhemoglobin Reference Range for Smokers: 2.0-8.0% Performed By: #### A LLBG ####[facility] LABCLIA [id number] [place] [address] [place] CO2 (Bld) [Partial pressure] 44 mm Hg Normal 36-46 [facility] Comment on above: Order Comment: Speci men Type: ARTERIAL BLOOD SPECIMENOrdering Facility: [facility] Address: [address] [place] [address] Performed By: #### A LLBG ####[facility] LABCLIA [id number] [place] [address] [place] CO2 adjusted to patient's actual temperature (Bld) [Partial pressure] 42 mmHg Normal 36-46 [facility] Comment on above: Order Comment: Speci men Type: ARTERIAL BLOOD SPECIMENOrdering Facility: [facility] Address: [address] [place] [address] Performed By: #### A LLBG ####[facility] LABCLIA [id number] [place] [id number] [place] Glucose [Mass/Vol] 142 mg/dL High 60-105 [facility] Comment on above: Order Comment: Speci men Type: ARTERIAL BLOOD SPECIMENOrdering Facility: [facility] Address: [address] [place] [address] Performed By: #### A LLBG ####[facility] LABIA [id number] [place] [id number] [place] HCO3 (Bld) [Moles/Vol] 25 mmol/L Normal 22-26 [facility] Comment on above: Order Comment: Speci men Type: ARTERIAL BLOOD SPECIMENOrdering Facility: [facility] Address: [address] [place] [address] Performed By: #### A LLBG ####[facility] LABCLIA [id number] [place] [address] [place] Hematocrit (Bld) [Volume fraction] 33.9 % Low 39.0-51.0 [facility] Comment on above: Order Comment: Speci men Type: ARTERIAL BLOOD SPECIMENOrdering Facility: [facility] Address: [address] [place] [address] Performed By: #### A LLBG ####[facility] LABCLIA [id number] [place] [address] [place] Hemoglobin (Bld) [Mass/Vol] 11.0 g/dL Low 13.0-17.0 [facility] Comment on above: Order Comment: Speci men Type: ARTERIAL BLOOD SPECIMENOrdering Facility: [facility] Address: [address] [place] [address] Performed By: #### A LLBG ####[facility] LABCLIA [id number] [place] [address] [place] Lactate [Moles/Vol] 0.9 mmol/L Normal 0.5-2.2 [facility] Comment on above: Order Comment: Speci men Type: ARTERIAL BLOOD SPECIMENOrdering Facility: [facility] Address: [address] [place] [address] Performed By: #### A LLBG ####[facility] LABCLIA [id number] [place] [address] [place] 1 Liters/min Normal [facility] Comment on above: Order Comment: Speci men Type: ARTERIAL BLOOD SPECIMENOrdering Facility: [facility] Address: [address] [place] [address] Performed By: #### A LLBG ####[facility] LABCLIA [id number] [place] [id number] [place] Methemoglobin (Bld) [Mass fraction] 0.5 % Normal 0.0-1.5 [facility] Comment on above: Order Comment: Speci men Type: ARTERIAL BLOOD SPECIMENOrdering Facility: [facility] Address: [address] [place] [id number] Performed By: #### A LLBG ####[facility] LABCLIA [id number] [address] [place] [address] [place] O2 THERAPY NC = Nasal Cannula Normal [facility] Comment on above: Order Comment: Speci men Type: ARTERIAL BLOOD SPECIMENOrdering Facility: [facility] Address: [address] [place] [id number] Performed By: #### A LLBG ####[facility] LABCLIA [id number] [address] [place] [address] [place] Oxygen (Bld) [Partial pressure] 131 mm Hg High 85-95 [facility] Comment on above: Order Comment: Speci men Type: ARTERIAL BLOOD SPECIMENOrdering Facility: [facility] Address: [address] [place] [id number] Performed By: #### A LLBG ####[facility] LABCLIA [id number] [address] [address] [place] Oxygen adjusted to patient's actual temperature (Bld) [Partial pressure] 127 mmHg High 85-95 [facility] Comment on above: Order Comment: Speci men Type: ARTERIAL BLOOD SPECIMENOrdering Facility: [facility] Address: [address] [place] [id number] Performed By: #### A LLBG ####[facility] LABCLIA [id number] [address] [address] [place] Oxyhemoglobin (BldA) [Mass fraction] 96 % Normal 95-98 [facility] Comment on above: Order Comment: Speci men Type: ARTERIAL BLOOD SPECIMENOrdering Facility: [facility] Address: [address] [place] [address] Performed By: #### A LLBG ####[facility] LABCLIA [id number] [place] [address] [place] pH (Bld) 7.37 [pH] Normal 7.35-7.45 [facility] Comment on above: Order Comment: Speci men Type: ARTERIAL BLOOD SPECIMENOrdering Facility: [facility] Address: [address] [place] [address] Performed By: #### A LLBG ####[facility] LABCLIA [id number] [place] [address] [place] pH adjusted to patient's actual temperature (Bld) 7.38 Normal 7.35-7.45 [facility] Comment on above: Order Comment: Speci men Type: ARTERIAL BLOOD SPECIMENOrdering Facility: [facility] Address: [address] [place] [address] Performed By: #### A LLBG ####[facility] LABCLIA [id number] [place] [address] [place] Potassium [Moles/Vol] 5.4 mmol/L High 3.5-5.0 [facility] Comment on above: Order Comment: Speci men Type: ARTERIAL BLOOD SPECIMENOrdering Facility: [facility] Address: [address] [place] [address] Performed By: #### A LLBG ####[facility] LABCLIA [id number] [place] [address] [place] ARTERIAL BLOOD GASES WITH IO NIZED MAGNESIUMon 11-26-2024 Base excess Calc (Bld) [Moles/Vol] 6 mmol/L High 0-2 [facility] Comment on above: Order Comment: Speci men Type: ARTERIAL BLOOD SPECIMENOrdering Facility: [facility] Address: [address] [place] [address] Performed By: #### A LLMG ####[facility] LABCLIA [id number] [place] [address] [place] Calcium.ionized (Bld) [Mass/Vol] 1.09 mmol/L Normal 1.08-1.30 [facility] Comment on above: Order Comment: Speci men Type: ARTERIAL BLOOD SPECIMENOrdering Facility: [facility] Address: [address] [place] [address] Performed By: #### A LLMG ####[facility] LABCLIA [id number] [place] [address] [place] Calcium.ionized adjusted to pH 7.4 (BldA) [Moles/Vol] 1.12 mmol/L Normal 1.08-1.30 [facility] Comment on above: Order Comment: Speci men Type: ARTERIAL BLOOD SPECIMENOrdering Facility: [facility] Address: [address] [place] [address] Performed By: #### A LLMG ####[facility] LABCLIA [id number] [place] [address] [place] Carboxyhemoglobin (BldA) [Mass fraction] 0.0 % Normal 0.0-2.0 [facility] Comment on above: Order Comment: Speci men Type: ARTERIAL BLOOD SPECIMENOrdering Facility: [facility] Address: [address] [place] [address] Result Comment: Carb oxyhemoglobin Reference Range for Smokers: 2.0-8.0% Performed By: #### A LLMG ####[facility] LABCLIA [id number] [place] [address] [place] CO2 (Bld) [Partial pressure] 43 mm Hg Normal 36-46 [facility] Comment on above: Order Comment: Speci men Type: ARTERIAL BLOOD SPECIMENOrdering Facility: [facility] Address: [address] [place] [address] Performed By: #### A LLMG ####[facility] LABCLIA [id number] [place] [address] [place] CO2 adjusted to patient's actual temperature (Bld) [Partial pressure] 43 mmHg Normal 36-46 [facility] Comment on above: Order Comment: Speci men Type: ARTERIAL BLOOD SPECIMENOrdering Facility: [facility] Address: [address] [place] [address] Performed By: #### A LLMG ####[facility] LABCLIA [id number] [place] [id number] [place] Glucose [Mass/Vol] 83 mg/dL Normal 60-105 [facility] Comment on above: Order Comment: Speci men Type: ARTERIAL BLOOD SPECIMENOrdering Facility: [facility] Address: [address] [place] [address] Performed By: #### A LLMG ####[facility] LABIA [id number] [place] [address] [place] HCO3 (Bld) [Moles/Vol] 30 mmol/L High 22-26 [facility] Comment on above: Order Comment: Speci men Type: ARTERIAL BLOOD SPECIMENOrdering Facility: [facility] Address: [address] [place] [address] Performed By: #### A LLMG ####[facility] LABIA [id number] [place] [address] [place] Hematocrit (Bld) [Volume fraction] 32.9 % Low 39.0-51.0 [facility] Comment on above: Order Comment: Speci men Type: ARTERIAL BLOOD SPECIMENOrdering Facility: [facility] Address: [address] [place] [address] Performed By: #### A LLMG ####[facility] LABCLIA [id number] [place] [id number] [place] Hemoglobin (Bld) [Mass/Vol] 10.7 g/dL Low 13.0-17.0 [facility] Comment on above: Order Comment: Speci men Type: ARTERIAL BLOOD SPECIMENOrdering Facility: [facility] Address: [address] [place] [address] Performed By: #### A LLMG ####[facility] LABCLIA [id number] [address] [address] [place] Lactate [Moles/Vol] 0.6 mmol/L Normal 0.5-2.2 [facility] Comment on above: Order Comment: Speci men Type: ARTERIAL BLOOD SPECIMENOrdering Facility: [facility] Address: [address] [place] [address] Performed By: #### A LLMG ####[facility] LABCLIA [id number] [place] [address] [place] Magnesium [Moles/Vol] 0.59 mmol/L Normal 0.45-0.60 [facility] Comment on above: Order Comment: Speci men Type: ARTERIAL BLOOD SPECIMENOrdering Facility: [facility] Address: [address] [place] [address] Performed By: #### A LLMG ####[facility] LABIA [id number] [place] [address] [place] Methemoglobin (Bld) [Mass fraction] 0.5 % Normal 0.0-1.5 [facility] Comment on above: Order Comment: Speci men Type: ARTERIAL BLOOD SPECIMENOrdering Facility: [facility] Address: [address] [place] [address] Performed By: #### A LLMG ####[facility] LABIA [id number] [place] [id number] [place] Oxygen (Bld) [Partial pressure] 132 mm Hg High 85-95 [facility] Comment on above: Order Comment: Speci men Type: ARTERIAL BLOOD SPECIMENOrdering Facility: [facility] Address: [address] [place] [address] Performed By: #### A LLMG ####[facility] LABCLIA [id number] [place] [address] [place] Oxygen adjusted to patient's actual temperature (Bld) [Partial pressure] 132 mmHg High 85-95 [facility] Comment on above: Order Comment: Speci men Type: ARTERIAL BLOOD SPECIMENOrdering Facility: [facility] Address: [address] [place] [address] Performed By: #### A LLMG ####[facility] LABCLIA [id number] [address] [address] [place] Oxyhemoglobin (BldA) [Mass fraction] 97 % Normal 95-98 [facility] Comment on above: Order Comment: Speci men Type: ARTERIAL BLOOD SPECIMENOrdering Facility: [facility] Address: [address] [place] [address] Performed By: #### A LLMG ####[facility] LABIA [id number] [place] [address] [place] pH (Bld) 7.46 [pH] High 7.35-7.45 [facility] Comment on above: Order Comment: Speci men Type: ARTERIAL BLOOD SPECIMENOrdering Facility: [facility] Address: [address] [place] [address] Performed By: #### A LLMG ####[facility] LABIA [id number] [place] [address] [place] pH adjusted to patient's actual temperature (Bld) 7.46 High 7.35-7.45 [facility] Comment on above: Order Comment: Speci men Type: ARTERIAL BLOOD SPECIMENOrdering Facility: [facility] Address: [address] [place] [address] Performed By: #### A LLMG ####[facility] LABIA [id number] [place] [address] [place] Potassium [Moles/Vol] 3.7 mmol/L Normal 3.5-5.0 [facility] Comment on above: Order Comment: Speci men Type: ARTERIAL BLOOD SPECIMENOrdering Facility: [facility] Address: [address] [place] [address] Performed By: #### A LLMG ####[facility] [id number] [place] [address] [place] Sodium [Moles/Vol] 133 mmol/L Low 136-144 [facility] Comment on above: Order Comment: Speci men Type: ARTERIAL BLOOD SPECIMENOrdering Facility: [facility] Address: [address] [place] [address] Performed By: #### A LLMG ####[facility] [id number] [place] [address] [place] BRIEF OP NOTon 11-26-2024 BRIEF OP NOT Normal [facility] BUN p dialysis SerPl-mCncon 11-26-2024 Urea nitrogen post dialysis [Mass/Vol] 30 mg/dL High 9-24 [facility] Comment on above: Order Comment: Speci men Type: BLOOD SPECIMENOrdering Facility: [facility] Address: [address] [place] [address] Performed By: #### 1 1064-3 ####[facility] [id number] [address] [place] BUN pre dial SerPl-mCncon Urea nitrogen pre dialysis [Mass/Vol] 96 mg/dL High 9-24 [facility] Comment on above: Order Comment: Speci men Type: BLOOD SPECIMENOrdering Facility: [facility] Address: [address] [place] [address] Performed By: #### 1 1065-0 ####[facility] [id number] [place] [address] [place] Basic Metabolic Profile (BMP )on 11-26-2024 BUN Normal 4-19 [facility] Comment on above: Result Comment: Solomon eason via OM: Ordered Performed By: #### L 500.2500, L100.0100 ####[facility] [address] [place], [address] BUN/CRE Normal 10-20 [facility] Comment on above: Result Comment: Canc elled via OM: MD Ordered Performed By: #### L 500.2500, L100.0100 ####[facility] [address] [place], [address] Calcium Normal 7.6-11.0 [facility] Comment on above: Result Comment: Canc elled via OM: MD Ordered Performed By: #### L 500.2500, L100.0100 ####[facility] [address] [place], [address] CL Normal 98-108 [facility] Comment on above: Result Comment: Canc elled via OM: MD Ordered Performed By: #### L 500.2500, L100.0100 ####[facility] [address] [place], [address] CO2 Normal 21.0-32.0 [facility] Comment on above: Result Comment: Canc elled via OM: MD Ordered Performed By: #### L 500.2500, L100.0100 ####[facility] [address] [place], [address] CREAT,SERUM Normal 0.70-1.20 [facility] Comment on above: Result Comment: Canc elled via OM: MD Ordered Performed By: #### L 500.2500, L100.0100 ####[facility] [address] [place], [address] eGFR Normal >60 [facility] Comment on above: Result Comment: Canc elled via OM: MD Ordered Performed By: #### L 500.2500, L100.0100 ####[facility] [address] [place], [address] GAP Normal 5-15 [facility] Comment on above: Result Comment: Canc elled via OM: MD Ordered Performed By: #### L 500.2500, L100.0100 ####[facility] [address] [place], [address] GLU Normal 70-99 [facility] Comment on above: Result Comment: Canc elled via OM: MD Ordered Performed By: #### L 500.2500, L100.0100 ####[facility] [address] [place], [address] Potassium Normal 3.3-5.1 [facility] Comment on above: Result Comment: Canc elled via OM: MD Ordered Performed By: #### L 500.2500, L100.0100 ####[facility] [address] [place], [address] Basic Metabolic Profile (BMP) Normal 133-145 [facility] Comment on above: Result Comment: Canc elled via OM: MD Ordered Performed By: #### L 500.2500, L100.0100 ####[facility] [address] [place], [address] CASE MGT INIT ASSESon -- 2024 CASE MGT INIT ASSES Normal [facility] CBC W/Diff, Automatedon 07-0 Absolute Neut Normal 2.0-7.7 [facility] Comment on above: Result Comment: Canc elled via OM: MD Ordered Performed By: #### L 500.2500, L100.0100 ####[facility] [address] [place], [address] HCT Normal 40-54 [facility] Comment on above: Result Comment: Canc elled via OM: MD Ordered Performed By: #### L 500.2500, L100.0100 ####[facility] [address] [place], [address] HGB Normal 13.0-16.5 [facility] Comment on above: Result Comment: Canc elled via OM: MD Ordered Performed By: #### L 500.2500, L100.0100 ####[facility] [address] [place], [address] MCH Normal 27.0-32.0 [facility] Comment on above: Result Comment: Canc elled via OM: MD Ordered Performed By: #### L 500.2500, L100.0100 ####[facility] [address] [place], [address] MCHC Normal 32-36 [facility] Comment on above: Result Comment: Canc elled via OM: MD Ordered Performed By: #### L 500.2500, L100.0100 ####[facility] [address] [place], [address] MCV Normal 80-94 [facility] Comment on above: Result Comment: Canc elled via OM: MD Ordered Performed By: #### L 500.2500, L100.0100 ####[facility] [address] [place], [address] NEUT% Normal 47-70 [facility] Comment on above: Result Comment: Canc elled via OM: MD Ordered Performed By: #### L 500.2500, L100.0100 ####[facility] [address] [place], [address] PLT Normal 150-450 [facility] Comment on above: Result Comment: Canc elled via OM: MD Ordered Performed By: #### L 500.2500, L100.0100 ####[facility] [address] [place], [address] RBC Normal 4.6-6.2 [facility] Comment on above: Result Comment: Canc elled via OM: MD Ordered Performed By: #### L 500.2500, L100.0100 ####[facility] [address] [place], [address] RDW CV Normal 11.6-14.6 [facility] Comment on above: Result Comment: Canc elled via OM: MD Ordered Performed By: #### L 500.2500, L100.0100 ####[facility] [address] [place], [address] RDW SD Normal 35.1-43.9 [facility] Comment on above: Result Comment: Canc elled via OM: MD Ordered Performed By: #### L 500.2500, L100.0100 ####[facility] [address] [place], [address] WBC Normal 4.4-11.0 [facility] Comment on above: Result Comment: Canc elled via OM: MD Ordered Performed By: #### L 500.2500, L100.0100 ####[facility] [address] [place], [address] CBC panel Auto (Bld)on 11-26 Erythrocyte distribution width (RBC) [Ratio] 15.9 % High 11.5-15.0 [facility] Comment on above: Order Comment: Speci men Type: BLOOD SPECIMENOrdering Facility: [facility] Address: [address] [place] [address] Performed By: #### 5 8410-2 ####[facility] LABCLIA [id number] [place] [address] [place] Hematocrit (Bld) [Volume fraction] 33.8 % Low 39.0-51.0 [facility] Comment on above: Order Comment: Speci men Type: BLOOD SPECIMENOrdering Facility: [facility] Address: [address] [place] [address] Performed By: #### 5 8410-2 ####[facility] LABCLIA [id number] [place] [address] [place] Hemoglobin (Bld) [Mass/Vol] 10.7 g/dL Low 13.0-17.0 [facility] Comment on above: Order Comment: Speci men Type: BLOOD SPECIMENOrdering Facility: [facility] Address: [address] [place] [address] Performed By: #### 5 8410-2 ####[facility] LABIA [id number] [place] [address] [place] [facility] MCH (RBC) [Entitic mass] 28.2 pg Normal 26.0-34.0 [facility] Comment on above: Order Comment: Speci men Type: BLOOD SPECIMENOrdering Facility: [facility] Address: [address] [place] [address] Performed By: #### 5 8410-2 ####[facility] LABIA [id number] [place] [address] [place] MCHC (RBC) [Mass/Vol] 31.7 g/dL Normal 30.5-36.0 [facility] Comment on above: Order Comment: Speci men Type: BLOOD SPECIMENOrdering Facility: [facility] Address: [address] [place] [address] Performed By: #### 5 8410-2 ####[facility] LABIA [id number] [place] [address] [place] MCV (RBC) [Entitic vol] 88.9 fL Normal 80.0-100.0 [facility] Comment on above: Order Comment: Speci men Type: BLOOD SPECIMENOrdering Facility: [facility] Address: [address] [place] [address] Performed By: #### 5 8410-2 ####[facility] LABIA [id number] [place] [address] [place] Nucleated RBC (Bld) [#/Vol] 10*3/uL Normal <0.01 [facility] Comment on above: Order Comment: Speci men Type: BLOOD SPECIMENOrdering Facility: [facility] Address: [address] [place] [address] Performed By: #### 5 8410-2 ####[facility] [id number] [place] [address] [place] Platelet mean volume (Bld) [Entitic vol] 12.2 fL Normal 9.0-12.7 [facility] Comment on above: Order Comment: Speci men Type: BLOOD SPECIMENOrdering Facility: [facility] Address: [address] [place] [address] Performed By: #### 5 8410-2 ####[facility] LABIA [id number] [place] [address] [place] Platelets (Bld) [#/Vol] 133 10*3/uL Low 150-400 [facility] Comment on above: Order Comment: Speci men Type: BLOOD SPECIMENOrdering Facility: [facility] Address: [address] [place] [address] Performed By: #### 5 8410-2 ####[facility] [id number] [place] [address] [place] RBC (Bld) [#/Vol] 3.80 10*6/uL Low 4.20-6.00 [facility] Comment on above: Order Comment: Speci men Type: BLOOD SPECIMENOrdering Facility: [facility] Address: [address] [place] [address] Performed By: #### 5 8410-2 ####[facility] [id number] [place] [address] [place] WBC (Bld) [#/Vol] 8.99 10*3/uL Normal 3.70-11.00 [facility] Comment on above: Order Comment: Speci men Type: BLOOD SPECIMENOrdering Facility: [facility] Address: [address] [place] [address] Performed By: #### 5 8410-2 ####[facility] [id number] [place] [id number] [place] CONSULT PROGon 11-26-2024 CONSULT PROG Normal [facility] Comp Metab 2000 Pnl SerPlon 11-26-2024 Sodium [Moles/Vol] 129 mmol/L Low 136-144 [facility] Comment on above: Order Comment: Speci men Type: BLOOD SPECIMENOrdering Facility: [facility] Address: [address] [place] [address] Performed By: #### 2 4323-8, 12341-9 ####[facility] LABCLIA [id number] [address] [place] Order Comment: Speci men Type: ARTERIAL BLOOD SPECIMENOrdering Facility: [facility] Address: [address] [place] [address] Performed By: #### A LLBG ####[facility] LABCLIA [id number] [place] [address] [place] Comprehensive metabolic 2000 panelon 11-26-2024 Albumin [Mass/Vol] 3.4 g/dL Low 3.9-4.9 [facility] Comment on above: Order Comment: Speci men Type: BLOOD SPECIMENOrdering Facility: [facility] Address: [address] [place] [address] Performed By: #### 2 4323-8 ####[facility] LABCLIA [id number] [place] [address] [place] ALP [Catalytic activity/Vol] 64 U/L Normal 38-113 [facility] Comment on above: Order Comment: Speci men Type: BLOOD SPECIMENOrdering Facility: [facility] Address: [address] [place] [address] Performed By: #### 2 4323-8 ####[facility] LABCLIA [id number] [place] [id number] [place] ALT [Catalytic activity/Vol] 34 U/L Normal 10-54 [facility] Comment on above: Order Comment: Speci men Type: BLOOD SPECIMENOrdering Facility: [facility] Address: [address] [place] [address] Performed By: #### 2 4323-8 ####[facility] LABCLIA [id number] [address] [address] [place] Anion gap [Moles/Vol] 19 mmol/L High 8-15 [facility] Comment on above: Order Comment: Speci men Type: BLOOD SPECIMENOrdering Facility: [facility] Address: [address] [place] [address] Performed By: #### 2 4323-8 ####[facility] LABCLIA [id number] [place] [address] [place] AST [Catalytic activity/Vol] 21 U/L Normal 14-40 [facility] Comment on above: Order Comment: Speci men Type: BLOOD SPECIMENOrdering Facility: [facility] Address: [address] [place] [address] Performed By: #### 2 4323-8 ####[facility] LABCLIA [id number] [place] [id number] [place] Bilirubin [Mass/Vol] 0.3 mg/dL Normal 0.2-1.3 [facility] Comment on above: Order Comment: Speci men Type: BLOOD SPECIMENOrdering Facility: [facility] Address: [address] [place] [address] Performed By: #### 2 4323-8 ####[facility] LABCLIA [id number] [place] [address] [place] Calcium [Mass/Vol] 8.7 mg/dL Normal 8.5-10.2 [facility] Comment on above: Order Comment: Speci men Type: BLOOD SPECIMENOrdering Facility: [facility] Address: [address] [place], [place] [address] Performed By: #### 2 4323-8 ####[facility] LABCLIA [id number] [place] [address] [place] Chloride [Moles/Vol] 89 mmol/L Low 98-107 [facility] Comment on above: Order Comment: Speci men Type: BLOOD SPECIMENOrdering Facility: [facility] Address: [address] [place] [address] Performed By: #### 2 4323-8 ####[facility] LABCLIA [id number] [place] [address] [place] CO2 [Moles/Vol] 22 mmol/L Normal 22-30 [facility] Comment on above: Order Comment: Speci men Type: BLOOD SPECIMENOrdering Facility: [facility] Address: [address] [place] [address] Performed By: #### 2 4323-8 ####[facility] LABIA [id number] [place] [address] [place] Creatinine [Mass/Vol] 7.11 mg/dL High 0.73-1.22 [facility] Comment on above: Order Comment: Speci men Type: BLOOD SPECIMENOrdering Facility: [facility] Address: [address] [place] [address] Performed By: #### 2 4323-8 ####[facility] LABIA [id number] [place] [address] [place] Creatinine and Glomerular filtration rate.predicted panel (S/P/Bld) 7 mL/min/1.73m??? Low >=60 [facility] Comment on above: Order Comment: Speci men Type: BLOOD SPECIMENOrdering Facility: [facility] Address: [address] [place] [address] Result Comment: Tessa mated Glomerular Filtration Rate [...] actual GFR. Performed By: #### 2 4323-8 ####[facility] LABCLIA [id number] [address] [address] [place] Glucose [Mass/Vol] 55 mg/dL Low 74-99 [facility] Comment on above: Order Comment: Speci men Type: BLOOD SPECIMENOrdering Facility: [facility] Address: [address] [place] [address] Result Comment: The [place] [employer] (ADA) provides guidance for cutoff [...] Standards of Medical Care in Diabetes 2016, [place] [employer]. Diabetes Care. 2016.39(Suppl 1). Performed By: #### 2 4323-8 ####[facility] LABCLIA [id number] [place] [id number] [place] Potassium [Moles/Vol] 5.3 mmol/L High 3.7-5.1 [facility] Comment on above: Order Comment: Speci men Type: BLOOD SPECIMENOrdering Facility: [facility] Address: [address] [place] [address] Performed By: #### 2 4323-8 ####[facility] LABCLIA [id number] [address] [address] [place] Protein [Mass/Vol] 6.3 g/dL Normal 6.3-8.0 [facility] Comment on above: Order Comment: Speci men Type: BLOOD SPECIMENOrdering Facility: [facility] Address: [address] [place], [place] [address] Performed By: #### 2 4323-8 ####[facility] LABCLIA [id number] [facility] [place] [id number] [place] Sodium [Moles/Vol] 130 mmol/L Low 136-144 [facility] Comment on above: Order Comment: Speci men Type: BLOOD SPECIMENOrdering Facility: [facility] Address: [address] [place] [address] Performed By: #### 2 4323-8 ####[facility] LABCLIA [id number] [facility] [place] [id number] [place] Urea nitrogen [Mass/Vol] 95 mg/dL High 9-24 [facility] Comment on above: Order Comment: Speci men Type: BLOOD SPECIMENOrdering Facility: [facility] Address: [address] [place] [address] Performed By: #### 2 4323-8 ####[facility] LABCLIA [id number] [facility] [place] [address] [place] Albumin [Mass/Vol] 3.4 g/dL Low 3.9-4.9 [facility] Comment on above: Order Comment: Speci men Type: BLOOD SPECIMENOrdering Facility: [facility] Address: [address] [place] [address] Performed By: #### 2 4323-8, ####[facility] LABCLIA [id number] [facility] [place] [address] [place] ALP [Catalytic activity/Vol] 63 U/L Normal 38-113 [facility] Comment on above: Order Comment: Speci men Type: BLOOD SPECIMENOrdering Facility: [facility] Address: [address] [place], [place] [address] Performed By: #### 2 4323-8, ####[facility] LABCLIA [id number] [facility] [facility] [address], [facility] [place] ALT [Catalytic activity/Vol] 36 U/L Normal 10-54 [facility] Comment on above: Order Comment: Speci men Type: BLOOD SPECIMENOrdering Facility: [facility] Address: [address] [id number] Performed By: #### 2 432-8, ####[facility] LABCLIA [id number] [address] [address] [place] Anion gap [Moles/Vol] 19 mmol/L High 8-15 [facility] Comment on above: Order Comment: Speci men Type: BLOOD SPECIMENOrdering Facility: [facility] Address: [address] [place], [place] [address] Performed By: #### 2 432-8, ####[facility] LABCLIA [id number] [place] [id number] [place] AST [Catalytic activity/Vol] 20 U/L Normal 14-40 [facility] Comment on above: Order Comment: Speci men Type: BLOOD SPECIMENOrdering Facility: [facility] Address: [address] [place], [place] [address] Performed By: #### 2 4328, ####[facility] LABCLIA [id number] [place] [address] [place] Bilirubin [Mass/Vol] 0.2 mg/dL Normal 0.2-1.3 [facility] Comment on above: Order Comment: Speci men Type: BLOOD SPECIMENOrdering Facility: [facility] Address: [address] [place], [place] [address] Performed By: #### 2 432-8, ####[facility] LABCLIA [id number] [address] [address] [place] Calcium [Mass/Vol] 8.9 mg/dL Normal 8.5-10.2 [facility] Comment on above: Order Comment: Speci men Type: BLOOD SPECIMENOrdering Facility: [facility] Address: [address] [place], [place] [address] Performed By: #### 2 432-8, ####[facility] LABCLIA [id number] [facility] [address] [address] [place] Chloride [Moles/Vol] 88 mmol/L Low 98-107 [facility] Comment on above: Order Comment: Speci men Type: BLOOD SPECIMENOrdering Facility: [facility] Address: [address] [place] [address] Performed By: #### 2 4323-8, ####[facility] LABIA [id number] [place] [address] [place] CO2 [Moles/Vol] 22 mmol/L Normal 22-30 [facility] Comment on above: Order Comment: Speci men Type: BLOOD SPECIMENOrdering Facility: [facility] Address: [address] [place] [address] Performed By: #### 2 4323-8, ####[facility] LABCLIA [id number] [place] [address] [place] Creatinine [Mass/Vol] 7.11 mg/dL High 0.73-1.22 [facility] Comment on above: Order Comment: Speci men Type: BLOOD SPECIMENOrdering Facility: [facility] Address: [address] [place] [address] Performed By: #### 2 4323-8, ####[facility] LABIA [id number] [place] [address] [place] Creatinine and Glomerular filtration rate.predicted panel (S/P/Bld) 7 mL/min/1.73m??? Low >=60 [facility] Comment on above: Order Comment: Speci men Type: BLOOD SPECIMENOrdering Facility: [facility] Address: [address] [place] [address] Result Comment: Tessa mated Glomerular Filtration Rate [...] reflect actual GFR. Performed By: #### 2 43207-28, ####[facility] LABCLIA [id number] [facility]GEMolecular [employer] [address] [address] [place] Glucose [Mass/Vol] 133 mg/dL High 74-99 [facility] Comment on above: Order Comment: Speci men Type: BLOOD SPECIMENOrdering Facility: [facility] Address: [address] [place] [address] Result Comment: The [place] [employer] (ADA) provides guidance for cutoff [...] Standards of Medical Care in Diabetes 2016, [place] [employer]. Diabetes Care. 2016.39(Suppl 1). Performed By: #### 2 43207-28, ####[facility] LABCLIA [id number] [facility]GEK [address] [address] [place] Potassium [Moles/Vol] 5.6 mmol/L High 3.7-5.1 [facility] Comment on above: Order Comment: Lesvia aleman Type: BLOOD SPECIMENOrdering Facility: [facility] Address: [address] [place] [address] Performed By: #### 2 43207-28, ####[facility] LABCLIA [id number] [facility] [place] [address] [place] Protein [Mass/Vol] 6.3 g/dL Normal 6.3-8.0 [facility] Comment on above: Order Comment: Speci men Type: BLOOD SPECIMENOrdering Facility: [facility] Address: [address] [place], [place] [address] Performed By: #### 2 4323-8, ####[facility] LABCLIA [id number] [place] [address] [place] Urea nitrogen [Mass/Vol] 94 mg/dL High 9-24 [facility] Comment on above: Order Comment: Speci men Type: BLOOD SPECIMENOrdering Facility: [facility] Address: [address] [place] [address] Performed By: #### 2 4323-8, ####[facility] LABCLIA [id number] [place] [address] [place] Magnesium SerPl-mCncon 11-26 Magnesium [Mass/Vol] 2.6 mg/dL High 1.7-2.3 [facility] Comment on above: Order Comment: Speci men Type: BLOOD SPECIMENOrdering Facility: [facility] Address: [address] [place] [address] Performed By: #### 2 4323-8, ####[facility] LABIA [id number] [place] [address] [place] THERAPY NTon 11-26-2024 THERAPY NT Normal [facility] Urea nitrogen post dialysis [Mass/Vol]on 11-26-2024 UREA REDUCTION RATIO WITH BUNPR 69 % Normal [facility] Comment on above: Order Comment: Speci men Type: BLOOD SPECIMENOrdering Facility: [facility] Address: [address] [place] [address] Performed By: #### 1 1064-3 ####[facility] LABCLIA [id number] [place] [address] [place] XR CHEST 1V FRONTAL PORTon 0 11-26-2024 XR CHEST 1V FRONTAL PORT Normal [facility] ALLIED HEALTHon 11-25-2024 ALLIED HEALTH HNO ID: [id number] Author: ISRAEL MOODY Chaplain Service: Process Group Author Type: Type: Allied Health Filed: 11/25/2024 16:42 Note Text: The patient was anointed. Normal [facility] ARTERIAL BLOOD GASESon 11-25 Base excess Calc (Bld) [Moles/Vol] 1 mmol/L Normal 0-2 [facility] Comment on above: Order Comment: Speci men Type: ARTERIAL BLOOD SPECIMENOrdering Facility: [facility] Address: [address] [place] [address] Performed By: #### A LLBG ####[facility] LABIA [id number] [place] [address] [place] Body temperature 97.7 [degF] Normal [facility] Comment on above: Order Comment: Speci men Type: ARTERIAL BLOOD SPECIMENOrdering Facility: [facility] Address: [address] [place] [address] Performed By: #### A LLBG ####[facility] LABCLIA [id number] [place] [address] [place] Calcium.ionized (Bld) [Mass/Vol] 1.09 mmol/L Normal 1.08-1.30 [facility] Comment on above: Order Comment: Speci men Type: ARTERIAL BLOOD SPECIMENOrdering Facility: [facility] Address: [address] [place] [address] Performed By: #### A LLBG ####[facility] LABCLIA [id number] [place] [address] [place] Calcium.ionized adjusted to pH 7.4 (BldA) [Moles/Vol] 1.08 mmol/L Normal 1.08-1.30 [facility] Comment on above: Order Comment: Speci men Type: ARTERIAL BLOOD SPECIMENOrdering Facility: [facility] Address: [address] [place] [address] Performed By: #### A LLBG ####[facility] LABCLIA [id number] [place] [address] [place] Carboxyhemoglobin (BldA) [Mass fraction] 0.3 % Normal 0.0-2.0 [facility] Comment on above: Order Comment: Speci men Type: ARTERIAL BLOOD SPECIMENOrdering Facility: [facility] Address: [address] [place] [address] Result Comment: Carb oxyhemoglobin Reference Range for Smokers: 2.0-8.0% Performed By: #### A LLBG ####[facility] LABCLIA [id number] [place] [address] [place] CO2 (Bld) [Partial pressure] 43 mm Hg Normal 36-46 [facility] Comment on above: Order Comment: Speci men Type: ARTERIAL BLOOD SPECIMENOrdering Facility: [facility] Address: [address] [place] [address] Performed By: #### A LLBG ####[facility] LABIA [id number] [place] [address] [place] CO2 adjusted to patient's actual temperature (Bld) [Partial pressure] 42 mmHg Normal 36-46 [facility] Comment on above: Order Comment: Speci men Type: ARTERIAL BLOOD SPECIMENOrdering Facility: [facility] Address: [address] [place] [address] Performed By: #### A LLBG ####[facility] LABCLIA [id number] [place] [id number] [place] Glucose [Mass/Vol] 92 mg/dL Normal 60-105 [facility] Comment on above: Order Comment: Speci men Type: ARTERIAL BLOOD SPECIMENOrdering Facility: [facility] Address: [address] [place] [address] Performed By: #### A LLBG ####[facility] LABIA [id number] [place] [id number] [place] HCO3 (Bld) [Moles/Vol] 25 mmol/L Normal 22-26 [facility] Comment on above: Order Comment: Speci men Type: ARTERIAL BLOOD SPECIMENOrdering Facility: [facility] Address: [address] [place] [address] Performed By: #### A LLBG ####[facility] LABCLIA [id number] [place] [address] [place] Hematocrit (Bld) [Volume fraction] 32.9 % Low 39.0-51.0 [facility] Comment on above: Order Comment: Speci men Type: ARTERIAL BLOOD SPECIMENOrdering Facility: [facility] Address: [address] [place] [address] Performed By: #### A LLBG ####[facility] LABCLIA [id number] [place] [address] [place] Hemoglobin (Bld) [Mass/Vol] 10.6 g/dL Low 13.0-17.0 [facility] Comment on above: Order Comment: Speci men Type: ARTERIAL BLOOD SPECIMENOrdering Facility: [facility] Address: [address] [place] [address] Performed By: #### A LLBG ####[facility] LABCLIA [id number] [place] [address] [place] Lactate [Moles/Vol] 1.0 mmol/L Normal 0.5-2.2 [facility] Comment on above: Order Comment: Speci men Type: ARTERIAL BLOOD SPECIMENOrdering Facility: [facility] Address: [address] [place] [address] Performed By: #### A LLBG ####[facility] LABCLIA [id number] [place] [address] [place] LITERS 1 Liters/min Normal [facility] Comment on above: Order Comment: Speci men Type: ARTERIAL BLOOD SPECIMENOrdering Facility: [facility] Address: [address] [place] [address] Performed By: #### A LLBG ####[facility] LABCLIA [id number] [place] [address] [place] Methemoglobin (Bld) [Mass fraction] 0.3 % Normal 0.0-1.5 [facility] Comment on above: Order Comment: Speci men Type: ARTERIAL BLOOD SPECIMENOrdering Facility: [facility] Address: [address] [place] [address] Performed By: #### A LLBG ####[facility] LABCLIA [id number] [place] [address] [place] O2 THERAPY NC = Nasal Cannula Normal [facility] Comment on above: Order Comment: Speci men Type: ARTERIAL BLOOD SPECIMENOrdering Facility: [facility] Address: [address] [place] [address] Performed By: #### A LLBG ####[facility] LABCLIA [id number] [place] [id number] [place] Oxygen (Bld) [Partial pressure] 147 mm Hg High 85-95 [facility] Comment on above: Order Comment: Speci men Type: ARTERIAL BLOOD SPECIMENOrdering Facility: [facility] Address: [address] [place], [place] [address] Performed By: #### A LLBG ####[facility] LABCLIA [id number] [place] [id number] [place] Oxygen adjusted to patient's actual temperature (Bld) [Partial pressure] 144 mmHg High 85-95 [facility] Comment on above: Order Comment: Speci men Type: ARTERIAL BLOOD SPECIMENOrdering Facility: [facility] Address: [address] [place], [place] [address] Performed By: #### A LLBG ####[facility] LABCLIA [id number] [place] [id number] [place] Oxyhemoglobin (BldA) [Mass fraction] 97 % Normal 95-98 [facility] Comment on above: Order Comment: Speci men Type: ARTERIAL BLOOD SPECIMENOrdering Facility: [facility] Address: [address] [place] [address] Performed By: #### A LLBG ####[facility] LABIA [id number] [place] [id number] [place] pH (Bld) 7.39 [pH] Normal 7.35-7.45 [facility] Comment on above: Order Comment: Speci men Type: ARTERIAL BLOOD SPECIMENOrdering Facility: [facility] Address: [address] [place] [address] Performed By: #### A LLBG ####[facility] LABIA [id number] [place] [address] [place] pH adjusted to patient's actual temperature (Bld) 7.39 Normal 7.35-7.45 [facility] Comment on above: Order Comment: Speci men Type: ARTERIAL BLOOD SPECIMENOrdering Facility: [facility] Address: [address] [place] [address] Performed By: #### A LLBG ####[facility] LABIA [id number] [place] [address] [place] Potassium [Moles/Vol] 5.3 mmol/L High 3.5-5.0 [facility] Comment on above: Order Comment: Speci men Type: ARTERIAL BLOOD SPECIMENOrdering Facility: [facility] Address: [address] [place] [address] Performed By: #### A LLBG ####[facility] LABIA [id number] [place] [address] [place] Sodium [Moles/Vol] 129 mmol/L Low 136-144 [facility] Comment on above: Order Comment: Speci men Type: ARTERIAL BLOOD SPECIMENOrdering Facility: [facility] Address: [address] [place] [address] Performed By: #### A LLBG ####[facility] LABCLIA [id number] [place] [address] [place] Base excess Calc (Bld) [Moles/Vol] 1 mmol/L Normal 0-2 [facility] Comment on above: Order Comment: Speci men Type: ARTERIAL BLOOD SPECIMENOrdering Facility: [facility] Address: [address] [place] [address] Performed By: #### A LLBG ####[facility] LABIA [id number] [place] [address] [place] Body temperature 97.7 [degF] Normal [facility] Comment on above: Order Comment: Speci men Type: ARTERIAL BLOOD SPECIMENOrdering Facility: [facility] Address: [address] [place] [address] Performed By: #### A LLBG ####[facility] LABIA [id number] [place] [address] [place] Calcium.ionized (Bld) [Mass/Vol] 1.08 mmol/L Normal 1.08-1.30 [facility] Comment on above: Order Comment: Speci men Type: ARTERIAL BLOOD SPECIMENOrdering Facility: [facility] Address: [address] [place] [address] Performed By: #### A LLBG ####[facility] LABIA [id number] [place] [address] [place] Calcium.ionized adjusted to pH 7.4 (BldA) [Moles/Vol] 1.07 mmol/L Low 1.08-1.30 [facility] Comment on above: Order Comment: Speci men Type: ARTERIAL BLOOD SPECIMENOrdering Facility: [facility] Address: [address] [place] [address] Performed By: #### A LLBG ####[facility] LABIA [id number] [place] [id number] [place] Carboxyhemoglobin (BldA) [Mass fraction] 0.3 % Normal 0.0-2.0 [facility] Comment on above: Order Comment: Speci men Type: ARTERIAL BLOOD SPECIMENOrdering Facility: [facility] Address: [address] [place] [address] Result Comment: Carb oxyhemoglobin Reference Range for Smokers: 2.0-8.0% Performed By: #### A LLBG ####[facility] LABCLIA [id number] [address] [place] CO2 (Bld) [Partial pressure] 44 mm Hg Normal 36-46 [facility] Comment on above: Order Comment: Speci men Type: ARTERIAL BLOOD SPECIMENOrdering Facility: [facility] Address: [address] [place] [address] Performed By: #### A LLBG ####[facility] LABCLIA [id number] [address] [place] CO2 adjusted to patient's actual temperature (Bld) [Partial pressure] 43 mmHg Normal 36-46 [facility] Comment on above: Order Comment: Speci men Type: ARTERIAL BLOOD SPECIMENOrdering Facility: [facility] Address: [address] [place] [address] Performed By: #### A LLBG ####[facility] LABCLIA [id number] [place] [address] [place] Glucose [Mass/Vol] 157 mg/dL High 60-105 [facility] Comment on above: Order Comment: Speci men Type: ARTERIAL BLOOD SPECIMENOrdering Facility: [facility] Address: [address] [place] [address] Performed By: #### A LLBG ####[facility] LABCLIA [id number] [place] [address] [place] HCO3 (Bld) [Moles/Vol] 26 mmol/L Normal 22-26 [facility] Comment on above: Order Comment: Speci men Type: ARTERIAL BLOOD SPECIMENOrdering Facility: [facility] Address: [address] [place] [address] Performed By: #### A LLBG ####[facility] LABCLIA [id number] [place] [address] [place] Hematocrit (Bld) [Volume fraction] 32.7 % Low 39.0-51.0 [facility] Comment on above: Order Comment: Speci men Type: ARTERIAL BLOOD SPECIMENOrdering Facility: [facility] Address: [address] [place] [address] Performed By: #### A LLBG ####[facility] LABCLIA [id number] [place] [address] [place] Hemoglobin (Bld) [Mass/Vol] 10.6 g/dL Low 13.0-17.0 [facility] Comment on above: Order Comment: Speci men Type: ARTERIAL BLOOD SPECIMENOrdering Facility: [facility] Address: [address] [place] [address] Performed By: #### A LLBG ####[facility] LABCLIA [id number] [place] [address] [place] Lactate [Moles/Vol] 1.2 mmol/L Normal 0.5-2.2 [facility] Comment on above: Order Comment: Speci men Type: ARTERIAL BLOOD SPECIMENOrdering Facility: [facility] Address: [address] [place] [address] Performed By: #### A LLBG ####[facility] LABCLIA [id number] [place] [address] [place] Methemoglobin (Bld) [Mass fraction] 0.2 % Normal 0.0-1.5 [facility] Comment on above: Order Comment: Speci men Type: ARTERIAL BLOOD SPECIMENOrdering Facility: [facility] Address: [address] [place] [address] Performed By: #### A LLBG ####[facility] LABCLIA [id number] [address] [place] [address] [place] O2 THERAPY RA=Room Air Normal [facility] Comment on above: Order Comment: Speci men Type: ARTERIAL BLOOD SPECIMENOrdering Facility: [facility] Address: [address] [place] [address] Performed By: #### A LLBG ####[facility] LABCLIA [id number] [address] [address] [place] Oxygen (Bld) [Partial pressure] 136 mm Hg High 85-95 [facility] Comment on above: Order Comment: Speci men Type: ARTERIAL BLOOD SPECIMENOrdering Facility: [facility] Address: [address] [place] [address] Performed By: #### A LLBG ####[facility] LABCLIA [id number] [place] [id number] [place] Oxygen adjusted to patient's actual temperature (Bld) [Partial pressure] 134 mmHg High 85-95 [facility] Comment on above: Order Comment: Speci men Type: ARTERIAL BLOOD SPECIMENOrdering Facility: [facility] Address: [address] [place], [place] [address] Performed By: #### A LLBG ####[facility] LABCLIA [id number] [address] [address] [place] Oxyhemoglobin (BldA) [Mass fraction] 97 % Normal 95-98 [facility] Comment on above: Order Comment: Speci men Type: ARTERIAL BLOOD SPECIMENOrdering Facility: [facility] Address: [address] [place] [address] Performed By: #### A LLBG ####[facility] LABCLIA [id number] [address] [address] [place] pH (Bld) 7.39 [pH] Normal 7.35-7.45 [facility] Comment on above: Order Comment: Speci men Type: ARTERIAL BLOOD SPECIMENOrdering Facility: [facility] Address: [address] [place] [address] Performed By: #### A LLBG ####[facility] LABCLIA [id number] [place] [address] [place] pH adjusted to patient's actual temperature (Bld) 7.39 Normal 7.35-7.45 [facility] Comment on above: Order Comment: Speci men Type: ARTERIAL BLOOD SPECIMENOrdering Facility: [facility] Address: [address] [place] [address] Performed By: #### A LLBG ####[facility] LABCLIA [id number] [place] [address] [place] PO2 / FIO2 RATIO 648 mmHg Normal >300 [facility] Comment on above: Order Comment: Speci men Type: ARTERIAL BLOOD SPECIMENOrdering Facility: [facility] Address: [address] [place] [address] Performed By: #### A LLBG ####[facility] LABCLIA [id number] [place] [id number] [place] Potassium [Moles/Vol] 5.3 mmol/L High 3.5-5.0 [facility] Comment on above: Order Comment: Speci men Type: ARTERIAL BLOOD SPECIMENOrdering Facility: [facility] Address: [address] [place] [address] Performed By: #### A LLBG ####[facility] LABCLIA [id number] [place] [id number] [place] Sodium [Moles/Vol] 129 mmol/L Low 136-144 [facility] Comment on above: Order Comment: Speci men Type: ARTERIAL BLOOD SPECIMENOrdering Facility: [facility] Address: [address] [place] [address] Performed By: #### A LLBG ####[facility] LABCLIA [id number] [place] [id number] [place] Base excess Calc (Bld) [Moles/Vol] 1 mmol/L Normal 0-2 [facility] Comment on above: Order Comment: Speci men Type: ARTERIAL BLOOD SPECIMENOrdering Facility: [facility] Address: [address] [place] [address] Performed By: #### A LLBG ####[facility] LABCLIA [id number] [place] [address] [place] Body temperature 97.88 [degF] Normal [facility] Comment on above: Order Comment: Speci men Type: ARTERIAL BLOOD SPECIMENOrdering Facility: [facility] Address: [address] [place] [address] Performed By: #### A LLBG ####[facility] LABCLIA [id number] [place] [address] [place] Calcium.ionized (Bld) [Mass/Vol] 1.12 mmol/L Normal 1.08-1.30 [facility] Comment on above: Order Comment: Speci men Type: ARTERIAL BLOOD SPECIMENOrdering Facility: [facility] Address: [address] [place] [address] Performed By: #### A LLBG ####[facility] LABIA [id number] [place] [address] [place] Calcium.ionized adjusted to pH 7.4 (BldA) [Moles/Vol] 1.11 mmol/L Normal 1.08-1.30 [facility] Comment on above: Order Comment: Speci men Type: ARTERIAL BLOOD SPECIMENOrdering Facility: [facility] Address: [address] [place] [address] Performed By: #### A LLBG ####[facility] LABIA [id number] [place] [address] [place] Carboxyhemoglobin (BldA) [Mass fraction] 1.1 % Normal 0.0-2.0 [facility] Comment on above: Order Comment: Speci men Type: ARTERIAL BLOOD SPECIMENOrdering Facility: [facility] Address: [address] [place] [address] Result Comment: Carb oxyhemoglobin Reference Range for Smokers: 2.0-8.0% Performed By: #### A LLBG ####[facility] LABCLIA [id number] [place] [address] [place] CO2 (Bld) [Partial pressure] 43 mm Hg Normal 36-46 [facility] Comment on above: Order Comment: Speci men Type: ARTERIAL BLOOD SPECIMENOrdering Facility: [facility] Address: [address] [place] [address] Performed By: #### A LLBG ####[facility] LABCLIA [id number] [address] CO2 adjusted to patient's actual temperature (Bld) [Partial pressure] 42 mmHg Normal 36-46 [facility] Comment on above: Order Comment: Speci men Type: ARTERIAL BLOOD SPECIMENOrdering Facility: [facility] Address: [address] [place] [address] Performed By: #### A LLBG ####[facility] LABCLIA [id number] [place] [address] [place] Glucose [Mass/Vol] 175 mg/dL High 74-99 [facility] Comment on above: Order Comment: Speci men Type: ARTERIAL BLOOD SPECIMENOrdering Facility: [facility] Address: [address] [place] [address] Performed By: #### A LLBG ####[facility] LABIA [id number] [place] [id number] [place] Order Comment: Speci men Type: BLOOD SPECIMENOrdering Facility: [facility] Address: [address] [place] [address] Result Comment: The [place] [employer] (ADA) provides guidance for cutoff [...] Standards of Medical Care in Diabetes 2016, [place] [employer]. Diabetes Care. 2016.39(Suppl 1). Performed By: #### 2 4321-2 ####[facility] LABCLIA [id number] [place] [address] [place] HCO3 (Bld) [Moles/Vol] 25 mmol/L Normal 22-26 [facility] Comment on above: Order Comment: Speci men Type: ARTERIAL BLOOD SPECIMENOrdering Facility: [facility] Address: [address] [place] [address] Performed By: #### A LLBG ####[facility] LABIA [id number] [place] [address] [place] Hematocrit (Bld) [Volume fraction] 33.9 % Low 39.0-51.0 [facility] Comment on above: Order Comment: Ruddyi men Type: ARTERIAL BLOOD SPECIMENOrdering Facility: [facility] Address: [address] [place] [address] Performed By: #### A LLBG ####[facility] LABIA [id number] [place] [address] [place] Hemoglobin (Bld) [Mass/Vol] 11.0 g/dL Low 13.0-17.0 [facility] Comment on above: Order Comment: Speci men Type: ARTERIAL BLOOD SPECIMENOrdering Facility: [facility] Address: [address] [place] [address] Performed By: #### A LLBG ####[facility] LABCLIA [id number] [place] [address] [place] Lactate [Moles/Vol] 1.0 mmol/L Normal 0.5-2.2 [facility] Comment on above: Order Comment: Speci men Type: ARTERIAL BLOOD SPECIMENOrdering Facility: [facility] Address: [address] [place] [address] Performed By: #### A LLBG ####[facility] LABCLIA [id number] [place] [address] [place] Methemoglobin (Bld) [Mass fraction] 1.0 % Normal 0.0-1.5 [facility] Comment on above: Order Comment: Speci men Type: ARTERIAL BLOOD SPECIMENOrdering Facility: [facility] Address: [address] [place] [address] Performed By: #### A LLBG ####[facility] LABCLIA [id number] [address] [place] O2 THERAPY RA=Room Air Normal [facility] Comment on above: Order Comment: Speci men Type: ARTERIAL BLOOD SPECIMENOrdering Facility: [facility] Address: [address] [place] [address] Performed By: #### A LLBG ####[facility] LABCLIA [id number] [place] [address] [place] Oxygen (Bld) [Partial pressure] 169 mm Hg High 85-95 [facility] Comment on above: Order Comment: Speci men Type: ARTERIAL BLOOD SPECIMENOrdering Facility: [facility] Address: [address] [place] [address] Performed By: #### A LLBG ####[facility] LABCLIA [id number] [place] [id number] [place] Oxygen adjusted to patient's actual temperature (Bld) [Partial pressure] 167 mmHg High 85-95 [facility] Comment on above: Order Comment: Speci men Type: ARTERIAL BLOOD SPECIMENOrdering Facility: [facility] Address: [address] [place] [address] Performed By: #### A LLBG ####[facility] LABCLIA [id number] [address] [address] [place] Oxyhemoglobin (BldA) [Mass fraction] 97 % Normal 95-98 [facility] Comment on above: Order Comment: Speci men Type: ARTERIAL BLOOD SPECIMENOrdering Facility: [facility] Address: [address] [place] [address] Performed By: #### A LLBG ####[facility] LABCLIA [id number] [address] [address] [place] pH (Bld) 7.39 [pH] Normal 7.35-7.45 [facility] Comment on above: Order Comment: Speci men Type: ARTERIAL BLOOD SPECIMENOrdering Facility: [facility] Address: [address] [place] [address] Performed By: #### A LLBG ####[facility] LABCLIA [id number] [address] [place] pH adjusted to patient's actual temperature (Bld) 7.39 Normal 7.35-7.45 [facility] Comment on above: Order Comment: Speci men Type: ARTERIAL BLOOD SPECIMENOrdering Facility: [facility] Address: [address] [place] [address] Performed By: #### A LLBG ####[facility] LABCLIA [id number] [place] [id number] [place] PO2 / FIO2 RATIO 805 mmHg Normal >300 [facility] Comment on above: Order Comment: Speci men Type: ARTERIAL BLOOD SPECIMENOrdering Facility: [facility] Address: [address] [place] [address] Performed By: #### A LLBG ####[facility] LABCLIA [id number] [address] [address] [place] Potassium [Moles/Vol] 5.3 mmol/L High 3.5-5.0 [facility] Comment on above: Order Comment: Speci men Type: ARTERIAL BLOOD SPECIMENOrdering Facility: [facility] Address: [address] [place] [address] Performed By: #### A LLBG ####[facility] LABCLIA [id number] [place] [address] [place] Sodium [Moles/Vol] 131 mmol/L Low 136-144 [facility] Comment on above: Order Comment: Speci men Type: ARTERIAL BLOOD SPECIMENOrdering Facility: [facility] Address: [address] [place] [address] Performed By: #### A LLBG ####[facility] LABCLIA [id number] [place] [address] [place] Base excess Calc (Bld) [Moles/Vol] 0 mmol/L Normal 0-2 [facility] Comment on above: Order Comment: Speci men Type: ARTERIAL BLOOD SPECIMENOrdering Facility: [facility] Address: [address] [place] [address] Performed By: #### A LLBG ####[facility] LABCLIA [id number] [place] [address] [place] Body temperature 97.52 [degF] Normal [facility] Comment on above: Order Comment: Speci men Type: ARTERIAL BLOOD SPECIMENOrdering Facility: [facility] Address: [address] [place] [address] Performed By: #### A LLBG ####[facility] LABCLIA [id number] [place] [address] [place] Calcium.ionized (Bld) [Mass/Vol] 1.10 mmol/L Normal 1.08-1.30 [facility] Comment on above: Order Comment: Speci men Type: ARTERIAL BLOOD SPECIMENOrdering Facility: [facility] Address: [address] [place] [address] Performed By: #### A LLBG ####[facility] LABCLIA [id number] [place] [address] [place] Calcium.ionized adjusted to pH 7.4 (BldA) [Moles/Vol] 1.09 mmol/L Normal 1.08-1.30 [facility] Comment on above: Order Comment: Speci men Type: ARTERIAL BLOOD SPECIMENOrdering Facility: [facility] Address: [address] [place] [address] Performed By: #### A LLBG ####[facility] LABIA [id number] [place] [address] [place] Carboxyhemoglobin (BldA) [Mass fraction] 1.3 % Normal 0.0-2.0 [facility] Comment on above: Order Comment: Speci men Type: ARTERIAL BLOOD SPECIMENOrdering Facility: [facility] Address: [address] [place] [address] Result Comment: Carb oxyhemoglobin Reference Range for Smokers: 2.0-8.0% Performed By: #### A LLBG ####[facility] LABIA [id number] [place] [address] [place] CO2 (Bld) [Partial pressure] 45 mm Hg Normal 36-46 [facility] Comment on above: Order Comment: Speci men Type: ARTERIAL BLOOD SPECIMENOrdering Facility: [facility] Address: [address] [place] [address] Performed By: #### A LLBG ####[facility] LABIA [id number] [place] [id number] [place] CO2 adjusted to patient's actual temperature (Bld) [Partial pressure] 43 mmHg Normal 36-46 [facility] Comment on above: Order Comment: Speci men Type: ARTERIAL BLOOD SPECIMENOrdering Facility: [facility] Address: [address] [place] [address] Performed By: #### A LLBG ####[facility] LABIA [id number] [place] [id number] [place] Glucose [Mass/Vol] 179 mg/dL High 60-105 [facility] Comment on above: Order Comment: Speci men Type: ARTERIAL BLOOD SPECIMENOrdering Facility: [facility] Address: [address] [place] [address] Performed By: #### A LLBG ####[facility] LABCLIA [id number] [facility] [place] [address] [place] HCO3 (Bld) [Moles/Vol] 25 mmol/L Normal 22-26 [facility] Comment on above: Order Comment: Speci men Type: ARTERIAL BLOOD SPECIMENOrdering Facility: [facility] Address: [address] [place] [address] Performed By: #### A LLBG ####[facility] LABCLIA [id number] [facility] [place] [place] [address] [place] Hematocrit (Bld) [Volume fraction] 35.9 % Low 39.0-51.0 [facility] Comment on above: Order Comment: Speci men Type: ARTERIAL BLOOD SPECIMENOrdering Facility: [facility] Address: [address] [place] [address] Performed By: #### A LLBG ####[facility] LABCLIA [id number] [place] [address] [place] Hemoglobin (Bld) [Mass/Vol] 11.6 g/dL Low 13.0-17.0 [facility] Comment on above: Order Comment: Speci men Type: ARTERIAL BLOOD SPECIMENOrdering Facility: [facility] Address: [address] [place] [address] Performed By: #### A LLBG ####[facility] LABCLIA [id number] [place] [id number] [place] Lactate [Moles/Vol] 1.3 mmol/L Normal 0.5-2.2 [facility] Comment on above: Order Comment: Speci men Type: ARTERIAL BLOOD SPECIMENOrdering Facility: [facility] Address: [address] [place] [address] Performed By: #### A LLBG ####[facility] LABCLIA [id number] [place] [id number] [place] Methemoglobin (Bld) [Mass fraction] 1.4 % Normal 0.0-1.5 [facility] Comment on above: Order Comment: Speci men Type: ARTERIAL BLOOD SPECIMENOrdering Facility: [facility] Address: [address] [place] [address] Performed By: #### A LLBG ####[facility] LABCLIA [id number] [place] [id number] [place] O2 THERAPY RA=Room Air Normal [facility] Comment on above: Order Comment: Speci men Type: ARTERIAL BLOOD SPECIMENOrdering Facility: [facility] Address: [address] [place] [address] Performed By: #### A LLBG ####[facility] LABCLIA [id number] [place] [id number] [place] Oxygen (Bld) [Partial pressure] 95 mm Hg Normal 85-95 [facility] Comment on above: Order Comment: Speci men Type: ARTERIAL BLOOD SPECIMENOrdering Facility: [facility] Address: [address] [place] [address] Performed By: #### A LLBG ####[facility] LABCLIA [id number] [place] [id number] [place] Oxygen adjusted to patient's actual temperature (Bld) [Partial pressure] 92 mmHg Normal 85-95 [facility] Comment on above: Order Comment: Speci men Type: ARTERIAL BLOOD SPECIMENOrdering Facility: [facility] Address: [address] [place], [place] [address] Performed By: #### A LLBG ####[facility] LABCLIA [id number] [place] [id number] [place] Oxyhemoglobin (BldA) [Mass fraction] 94 % Low 95-98 [facility] Comment on above: Order Comment: Speci men Type: ARTERIAL BLOOD SPECIMENOrdering Facility: [facility] Address: [address] [place] [address] Performed By: #### A LLBG ####[facility] LABCLIA [id number] [address] [address] [place] pH (Bld) 7.37 [pH] Normal 7.35-7.45 [facility] Comment on above: Order Comment: Speci men Type: ARTERIAL BLOOD SPECIMENOrdering Facility: [facility] Address: [address] [place] [address] Performed By: #### A LLBG ####[facility] LABCLIA [id number] [place] [address] [place] pH adjusted to patient's actual temperature (Bld) 7.38 Normal 7.35-7.45 [facility] Comment on above: Order Comment: Speci men Type: ARTERIAL BLOOD SPECIMENOrdering Facility: [facility] Address: [address] [place] [address] Performed By: #### A LLBG ####[facility] LABCLIA [id number] [place] [id number] [place] PO2 / FIO2 RATIO 452 mmHg Normal >300 [facility] Comment on above: Order Comment: Speci men Type: ARTERIAL BLOOD SPECIMENOrdering Facility: [facility] Address: [address] [place] [address] Performed By: #### A LLBG ####[facility] LABCLIA [id number] [place] [id number] [place] Potassium [Moles/Vol] 5.3 mmol/L High 3.5-5.0 [facility] Comment on above: Order Comment: Speci men Type: ARTERIAL BLOOD SPECIMENOrdering Facility: [facility] Address: [address] [place] [address] Performed By: #### A LLBG ####[facility] LABCLIA [id number] [place] [address] [place] Sodium [Moles/Vol] 130 mmol/L Low 136-144 [facility] Comment on above: Order Comment: Speci men Type: ARTERIAL BLOOD SPECIMENOrdering Facility: [facility] Address: [address] [place] [address] Performed By: #### A LLBG ####[facility] LABCLIA [id number] [place] [address] [place] Base excess Calc (Bld) [Moles/Vol] 2 mmol/L Normal 0-2 [facility] Comment on above: Order Comment: Speci men Type: ARTERIAL BLOOD SPECIMENOrdering Facility: [facility] Address: [address] [place] [address] Performed By: #### A LLBG ####[facility] LABIA [id number] [place] [address] [place] Body temperature 98.6 [degF] Normal [facility] Comment on above: Order Comment: Speci men Type: ARTERIAL BLOOD SPECIMENOrdering Facility: [facility] Address: [address] [place] [address] Performed By: #### A LLBG ####[facility] LABIA [id number] [place] [address] [place] Calcium.ionized (Bld) [Mass/Vol] 1.10 mmol/L Normal 1.08-1.30 [facility] Comment on above: Order Comment: Speci men Type: ARTERIAL BLOOD SPECIMENOrdering Facility: [facility] Address: [address] [place] [address] Performed By: #### A LLBG ####[facility] LABCLIA [id number] [place] [id number] [place] Calcium.ionized adjusted to pH 7.4 (BldA) [Moles/Vol] 1.08 mmol/L Normal 1.08-1.30 [facility] Comment on above: Order Comment: Speci men Type: ARTERIAL BLOOD SPECIMENOrdering Facility: [facility] Address: [address] [place] [address] Performed By: #### A LLBG ####[facility] LABCLIA [id number] [place] [address] [place] Carboxyhemoglobin (BldA) [Mass fraction] 1.4 % Normal 0.0-2.0 [facility] Comment on above: Order Comment: Speci men Type: ARTERIAL BLOOD SPECIMENOrdering Facility: [facility] Address: [address] [place] [address] Result Comment: Carb oxyhemoglobin Reference Range for Smokers: 2.0-8.0% Performed By: #### A LLBG ####[facility] LABCLIA [id number] [place] [address] [place] CO2 (Bld) [Partial pressure] 47 mm Hg High 36-46 [facility] Comment on above: Order Comment: Speci men Type: ARTERIAL BLOOD SPECIMENOrdering Facility: [facility] Address: [address] [place] [address] Performed By: #### A LLBG ####[facility] LABCLIA [id number] [place] [address] [place] Glucose [Mass/Vol] 228 mg/dL High 60-105 [facility] Comment on above: Order Comment: Speci men Type: ARTERIAL BLOOD SPECIMENOrdering Facility: [facility] Address: [address] [place] [address] Performed By: #### A LLBG ####[facility] LABCLIA [id number] [place] [address] [place] HCO3 (Bld) [Moles/Vol] 27 mmol/L High 22-26 [facility] Comment on above: Order Comment: Speci men Type: ARTERIAL BLOOD SPECIMENOrdering Facility: [facility] Address: [address] [place] [address] Performed By: #### A LLBG ####[facility] LABCLIA [id number] [place] [address] [place] Hematocrit (Bld) [Volume fraction] 34.4 % Low 39.0-51.0 [facility] Comment on above: Order Comment: Speci men Type: ARTERIAL BLOOD SPECIMENOrdering Facility: [facility] Address: [address] [place] [address] Performed By: #### A LLBG ####[facility] LABIA [id number] [place] [address] [place] Hemoglobin (Bld) [Mass/Vol] 11.2 g/dL Low 13.0-17.0 [facility] Comment on above: Order Comment: Speci men Type: ARTERIAL BLOOD SPECIMENOrdering Facility: [facility] Address: [address] [place] [address] Performed By: #### A LLBG ####[facility] LABIA [id number] [place] [address] [place] Lactate [Moles/Vol] 1.2 mmol/L Normal 0.5-2.2 [facility] Comment on above: Order Comment: Speci men Type: ARTERIAL BLOOD SPECIMENOrdering Facility: [facility] Address: [address] [place] [address] Performed By: #### A LLBG ####[facility] LABCLIA [id number] [place] [address] [place] Methemoglobin (Bld) [Mass fraction] 1.3 % Normal 0.0-1.5 [facility] Comment on above: Order Comment: Speci men Type: ARTERIAL BLOOD SPECIMENOrdering Facility: [facility] Address: [address] [place] [address] Performed By: #### A LLBG ####[facility] LABCLIA [id number] [address] [place] [address] [place] O2 THERAPY RA=Room Air Normal [facility] Comment on above: Order Comment: Speci men Type: ARTERIAL BLOOD SPECIMENOrdering Facility: [facility] Address: [address] [place] [address] Performed By: #### A LLBG ####[facility] LABCLIA [id number] [address] [address] [place] Oxygen (Bld) [Partial pressure] 69 mm Hg Low 85-95 [facility] Comment on above: Order Comment: Speci men Type: ARTERIAL BLOOD SPECIMENOrdering Facility: [facility] Address: [address] [place] [address] Performed By: #### A LLBG ####[facility] LABCLIA [id number] [place] [id number] [place] Oxyhemoglobin (BldA) [Mass fraction] 90 % Low 95-98 [facility] Comment on above: Order Comment: Speci men Type: ARTERIAL BLOOD SPECIMENOrdering Facility: [facility] Address: [address] [place], [place] [address] Performed By: #### A LLBG ####[facility] LABCLIA [id number] [place] [id number] [place] pH (Bld) 7.38 [pH] Normal 7.35-7.45 [facility] Comment on above: Order Comment: Speci men Type: ARTERIAL BLOOD SPECIMENOrdering Facility: [facility] Address: [address] [place] [address] Performed By: #### A LLBG ####[facility] LABCLIA [id number] [place] [address] [place] PO2 / FIO2 RATIO 329 mmHg Normal >300 [facility] Comment on above: Order Comment: Speci men Type: ARTERIAL BLOOD SPECIMENOrdering Facility: [facility] Address: [address] [place] [address] Performed By: #### A LLBG ####[facility] LABCLIA [id number] [address] [address] [place] Potassium [Moles/Vol] 5.1 mmol/L High 3.5-5.0 [facility] Comment on above: Order Comment: Speci men Type: ARTERIAL BLOOD SPECIMENOrdering Facility: [facility] Address: [address] [place] [address] Performed By: #### A LLBG ####[facility] LABCLIA [id number] [place] [id number] [place] Sodium [Moles/Vol] 130 mmol/L Low 136-144 [facility] Comment on above: Order Comment: Speci men Type: ARTERIAL BLOOD SPECIMENOrdering Facility: [facility] Address: [address] [place] [address] Performed By: #### A LLBG ####[facility] LABCLIA [id number] [address] [address] [place] Basic Metabolic Profile (BMP )on 11-25-2024 BUN Normal 4-19 [facility] Comment on above: Result Comment: Canc elled via OM: Ordered Performed By: #### L 500.2500, L100.0100 ####[facility] [address] [place], [address] BUN/CRE Normal 10-20 [facility] Comment on above: Result Comment: Canc elled via OM: Ordered Performed By: #### L 500.2500, L100.0100 ####[facility] [address] [place], [address] Calcium Normal 7.6-11.0 [facility] Comment on above: Result Comment: Canc elled via OM: Ordered Performed By: #### L 500.2500, L100.0100 ####[facility] [address] [place], [address] CL Normal 98-108 [facility] Comment on above: Result Comment: Canc elled via OM: MD Ordered Performed By: #### L 500.2500, L100.0100 ####[facility] [address] [place], [address] CO2 Normal 21.0-32.0 [facility] Comment on above: Result Comment: Canc elled via OM: MD Ordered Performed By: #### L 500.2500, L100.0100 ####[facility] [address] [place], [address] CREAT,SERUM Normal 0.70-1.20 [facility] Comment on above: Result Comment: Canc elled via OM: MD Ordered Performed By: #### L 500.2500, L100.0100 ####[facility] [address] [place], [address] eGFR Normal >60 [facility] Comment on above: Result Comment: Canc elled via OM: MD Ordered Performed By: #### L 500.2500, L100.0100 ####[facility] [address] [place], [address] GAP Normal 5-15 [facility] Comment on above: Result Comment: Canc elled via OM: MD Ordered Performed By: #### L 500.2500, L100.0100 ####[facility] [address] [place], [address] GLU Normal 70-99 [facility] Comment on above: Result Comment: Canc elled via OM: MD Ordered Performed By: #### L 500.2500, L100.0100 ####[facility] [address] [place], [address] Potassium Normal 3.3-5.1 [facility] Comment on above: Result Comment: Canc elled via OM: MD Ordered Performed By: #### L 500.2500, L100.0100 ####[facility] [address] [place], [address] Basic Metabolic Profile (BMP) Normal 133-145 [facility] Comment on above: Result Comment: Solomon eason via OM: Ordered Performed By: #### L 500.2500, L100.0100 ####[facility] [address] [place], [address] Basic metabolic 2000 panelon 11-25-2024 Anion gap [Moles/Vol] 18 mmol/L High 8-15 [facility] Comment on above: Order Comment: Speci men Type: BLOOD SPECIMENOrdering Facility: [facility] Address: [address] [place] [address] Performed By: #### 1 9123-9, 2777-1, 69586-9 ####[facility] LABCLIA [id number] [place] [address] [place] Calcium [Mass/Vol] 8.9 mg/dL Normal 8.5-10.2 [facility] Comment on above: Order Comment: Speci men Type: BLOOD SPECIMENOrdering Facility: [facility] Address: [address] [place] [address] Performed By: #### 1 9123-9, 2777-1, 33485-7 ####[facility] LABCLIA [id number] [place] [address] [place] Chloride [Moles/Vol] 90 mmol/L Low 98-107 [facility] Comment on above: Order Comment: Speci men Type: BLOOD SPECIMENOrdering Facility: [facility] Address: [address] [place] [address] Performed By: #### 1 9123-9, 2777-1, 11203-3 ####[facility] LABCLIA [id number] [address] [address] [place] CO2 [Moles/Vol] 23 mmol/L Normal 22-30 [facility] Comment on above: Order Comment: Speci men Type: BLOOD SPECIMENOrdering Facility: [facility] Address: [address] [place] [address] Performed By: #### 1 9123-9, 2777, 96435-7 ####[facility] LABCLIA [id number] [address] [address] [place] Creatinine [Mass/Vol] 6.58 mg/dL High 0.73-1.22 [facility] Comment on above: Order Comment: Speci men Type: BLOOD SPECIMENOrdering Facility: [facility] Address: [address] [place] [address] Performed By: #### 1 9123-9, 27711-20, ####[facility] LABIA [id number] [address] [address] [place] Creatinine and Glomerular filtration rate.predicted panel (S/P/Bld) 8 mL/min/1.73m??? Low >=60 [facility] Comment on above: Order Comment: Speci men Type: BLOOD SPECIMENOrdering Facility: [facility] Address: [address] [place] [address] Result Comment: Tessa mated Glomerular Filtration Rate [...] GFR. Performed By: #### 1 9123-9, 2777-, 82516-7 ####[facility] LABIA [id number] [address] [address] [place] Glucose [Mass/Vol] 75 mg/dL Normal 74-99 [facility] Comment on above: Order Comment: Speci men Type: BLOOD SPECIMENOrdering Facility: [facility] Address: [address] [place] [address] Result Comment: The [place] [employer] (ADA) provides guidance for cutoff [...] Standards of Medical Care in Diabetes 2016, [place] [employer]. Diabetes Care. 2016.39(Suppl 1). Performed By: #### 1 9123-9, 2777-1, 56472-2 ####[facility] LABIA [id number] [place] [address] [place] Potassium [Moles/Vol] 5.2 mmol/L High 3.7-5.1 [facility] Comment on above: Order Comment: Speci men Type: BLOOD SPECIMENOrdering Facility: [facility] Address: [address] [place] [address] Performed By: #### 1 9123-9, 2777-, 59624-3 ####[facility] [id number] [place] [address] [place] Sodium [Moles/Vol] 131 mmol/L Low 136-144 [facility] Comment on above: Order Comment: Speci men Type: BLOOD SPECIMENOrdering Facility: [facility] Address: [address] [place] [address] Performed By: #### 1 9123-9, 2777-, 12702-7 ####[facility] LABIA [id number] [place] [address] [place] Urea nitrogen [Mass/Vol] 88 mg/dL High 9-24 [facility] Comment on above: Order Comment: Speci men Type: BLOOD SPECIMENOrdering Facility: [facility] Address: [address] [place] [id number] Performed By: #### 1 9123-9, 2777-1, 99987-3 ####[facility] LABCLIA [id number] [address] [address] [place] Anion gap [Moles/Vol] 19 mmol/L High 8-15 [facility] Comment on above: Order Comment: Speci men Type: BLOOD SPECIMENOrdering Facility: [facility] Address: [address] [place] [address] Performed By: #### 2 4321-2 ####[facility] LABCLIA [id number] [place] [address] [place] Calcium [Mass/Vol] 8.9 mg/dL Normal 8.5-10.2 [facility] Comment on above: Order Comment: Speci men Type: BLOOD SPECIMENOrdering Facility: [facility] Address: [address] [place] [address] Performed By: #### 2 4321-2 ####[facility] LABCLIA [id number] [place] [address] [place] Chloride [Moles/Vol] 89 mmol/L Low 98-107 [facility] Comment on above: Order Comment: Speci men Type: BLOOD SPECIMENOrdering Facility: [facility] Address: [address] [place], [place] [address] Performed By: #### 2 4321-2 ####[facility] LABCLIA [id number] [facility] [address] [address] [place] CO2 [Moles/Vol] 22 mmol/L Normal 22-30 [facility] Comment on above: Order Comment: Speci men Type: BLOOD SPECIMENOrdering Facility: [facility] Address: [address] [place], [place] [address] Performed By: #### 2 4321-2 ####[facility] LABCLIA [id number] [address] [address] [place] Creatinine [Mass/Vol] 6.20 mg/dL High 0.73-1.22 [facility] Comment on above: Order Comment: Speci men Type: BLOOD SPECIMENOrdering Facility: [facility] Address: [address] [place] [address] Performed By: #### 2 4321-2 ####[facility] LABCLIA [id number] [place] [address] [place] Creatinine and Glomerular filtration rate.predicted panel (S/P/Bld) 8 mL/min/1.73m??? Low >=60 [facility] Comment on above: Order Comment: Speci men Type: BLOOD SPECIMENOrdering Facility: [facility] Address: [address] [place] [address] Result Comment: Tessa mated Glomerular Filtration Rate [...] actual GFR. Performed By: #### 2 4321-2 ####[facility] LABCLIA [id number] [place] [address] [place] Potassium [Moles/Vol] 5.5 mmol/L High 3.7-5.1 [facility] Comment on above: Order Comment: Speci men Type: BLOOD SPECIMENOrdering Facility: [facility] Address: [address] [place] [address] Performed By: #### 2 4321-2 ####[facility] LABCLIA [id number] [facility] [place] [id number] [place] Sodium [Moles/Vol] 130 mmol/L Low 136-144 [facility] Comment on above: Order Comment: Speci men Type: BLOOD SPECIMENOrdering Facility: [facility] Address: [address] [place] [address] Performed By: #### 2 4321-2 ####[facility] LABCLIA [id number] [place] [address] [place] Urea nitrogen [Mass/Vol] 83 mg/dL High 9-24 [facility] Comment on above: Order Comment: Speci men Type: BLOOD SPECIMENOrdering Facility: [facility] Address: [address] [place] [address] Performed By: #### 2 4321-2 ####[facility] LABCLIA [id number] [place] [address] [place] CBC W/Diff, Automatedon 07-0 Absolute Neut Normal 2.0-7.7 [facility] Comment on above: Result Comment: Canc elled via OM: MD Ordered Performed By: #### L 500.2500, L100.0100 ####[facility] [address] [place], [address] HCT Normal 40-54 [facility] Comment on above: Result Comment: Canc elled via OM: MD Ordered Performed By: #### L 500.2500, L100.0100 ####[facility] [address] [place], [address] HGB Normal 13.0-16.5 [facility] Comment on above: Result Comment: Canc elled via OM: MD Ordered Performed By: #### L 500.2500, L100.0100 ####[facility] [address] [place], [address] MCH Normal 27.0-32.0 [facility] Comment on above: Result Comment: Canc elled via OM: MD Ordered Performed By: #### L 500.2500, L100.0100 ####[facility] [address] [place], [address] MCHC Normal 32-36 [facility] Comment on above: Result Comment: Canc elled via OM: MD Ordered Performed By: #### L 500.2500, L100.0100 ####[facility] [address] [place], [address] MCV Normal 80-94 [facility] Comment on above: Result Comment: Canc elled via OM: MD Ordered Performed By: #### L 500.2500, L100.0100 ####[facility] [address] [place], [address] NEUT% Normal 47-70 [facility] Comment on above: Result Comment: Canc elled via OM: MD Ordered Performed By: #### L 500.2500, L100.0100 ####[facility] [address] [place], [address] PLT Normal 150-450 [facility] Comment on above: Result Comment: Canc elled via OM: MD Ordered Performed By: #### L 500.2500, L100.0100 ####[facility] [address] [place], [address] RBC Normal 4.6-6.2 [facility] Comment on above: Result Comment: Canc elled via OM: MD Ordered Performed By: #### L 500.2500, L100.0100 ####[facility] [address] [place], [address] RDW CV Normal 11.6-14.6 [facility] Comment on above: Result Comment: Canc elled via OM: MD Ordered Performed By: #### L 500.2500, L100.0100 ####[facility] [address] [place], [address] RDW SD Normal 35.1-43.9 [facility] Comment on above: Result Comment: Canc elled via OM: MD Ordered Performed By: #### L 500.2500, L100.0100 ####[facility] [address] [place], [address] WBC Normal 4.4-11.0 [facility] Comment on above: Result Comment: Canc elled via OM: Ordered Performed By: #### L 500.2500, L100.0100 ####[facility] [address] [place], [address] CBC panel Auto (Bld)on 11-25 Erythrocyte distribution width (RBC) [Ratio] 16.2 % High 11.5-15.0 [facility] Comment on above: Order Comment: Speci men Type: BLOOD SPECIMENOrdering Facility: [facility] Address: [address] [place] [address] Performed By: #### 5 8410-2 ####[facility] LABIA [id number] [place] [address] [place] Hematocrit (Bld) [Volume fraction] 34.0 % Low 39.0-51.0 [facility] Comment on above: Order Comment: Speci men Type: BLOOD SPECIMENOrdering Facility: [facility] Address: [address] [place] [address] Performed By: #### 5 8410-2 ####[facility] LABIA [id number] [place] [id number] [place] Hemoglobin (Bld) [Mass/Vol] 10.6 g/dL Low 13.0-17.0 [facility] Comment on above: Order Comment: Speci men Type: BLOOD SPECIMENOrdering Facility: [facility] Address: [address] [place] [address] Performed By: #### 5 8410-2 ####[facility] LABIA [id number] [place] [address] [place] MCH (RBC) [Entitic mass] 27.8 pg Normal 26.0-34.0 [facility] Comment on above: Order Comment: Speci men Type: BLOOD SPECIMENOrdering Facility: [facility] Address: [address] [place] [address] Performed By: #### 5 8410-2 ####[facility] LABCLIA [id number] [place] [address] [place] MCHC (RBC) [Mass/Vol] 31.2 g/dL Normal 30.5-36.0 [facility] Comment on above: Order Comment: Speci men Type: BLOOD SPECIMENOrdering Facility: [facility] Address: [address] [place] [address] Performed By: #### 5 8410-2 ####[facility] LABIA [id number] [place] [address] [place] MCV (RBC) [Entitic vol] 89.2 fL Normal 80.0-100.0 [facility] Comment on above: Order Comment: Speci men Type: BLOOD SPECIMENOrdering Facility: [facility] Address: [address] [place] [address] Performed By: #### 5 8410-2 ####[facility] LABIA [id number] [place] [address] [place] Nucleated RBC (Bld) [#/Vol] 10*3/uL Normal <0.01 [facility] Comment on above: Order Comment: Speci men Type: BLOOD SPECIMENOrdering Facility: [facility] Address: [address] [place] [address] Performed By: #### 5 8410-2 ####[facility] LABIA [id number] [address] [place] Platelet mean volume (Bld) [Entitic vol] 11.8 fL Normal 9.0-12.7 [facility] Comment on above: Order Comment: Speci men Type: BLOOD SPECIMENOrdering Facility: [facility] Address: [address] [place] [address] Performed By: #### 5 8410-2 ####[facility] LABIA [id number] [place] [address] [place] Platelets (Bld) [#/Vol] 142 10*3/uL Low 150-400 [facility] Comment on above: Order Comment: Speci men Type: BLOOD SPECIMENOrdering Facility: [facility] Address: [address] [place] [address] Performed By: #### 5 8410-2 ####[facility] LABCLIA [id number] [place] [address] [place] RBC (Bld) [#/Vol] 3.81 10*6/uL Low 4.20-6.00 [facility] Comment on above: Order Comment: Speci men Type: BLOOD SPECIMENOrdering Facility: [facility] Address: [address] [place] [address] Performed By: #### 5 8410-2 ####[facility] LABCLIA [id number] [place] [address] [place] WBC (Bld) [#/Vol] 8.99 10*3/uL Normal 3.70-11.00 [facility] Comment on above: Order Comment: Speci men Type: BLOOD SPECIMENOrdering Facility: [facility] Address: [address] [place] [address] Performed By: #### 5 8410-2 ####[facility] LABIA [id number] [place] [address] [place] CONSULT PROGon 11-25-2024 CONSULT PROG Normal [facility] Comprehensive metabolic 2000 panelon 11-25-2024 Albumin [Mass/Vol] 3.5 g/dL Low 3.9-4.9 [facility] Comment on above: Order Comment: Speci men Type: BLOOD SPECIMENOrdering Facility: [facility] Address: [address] [place] [address] Performed By: #### 1 9123-9, 28489-8 ####[facility] LABCLIA [id number] [address] [address] [place] ALP [Catalytic activity/Vol] 66 U/L Normal 38-113 [facility] Comment on above: Order Comment: Speci men Type: BLOOD SPECIMENOrdering Facility: [facility] Address: [address] [place] [address] Performed By: #### 1 9123-9, 11953-0 ####[facility] LABCLIA [id number] [place] [address] [place] ALT [Catalytic activity/Vol] 37 U/L Normal 10-54 [facility] Comment on above: Order Comment: Speci men Type: BLOOD SPECIMENOrdering Facility: [facility] Address: [address] [place] [address] Performed By: #### 1 9123-9, ####[facility] LABCLIA [id number] [place] [address] [place] Anion gap [Moles/Vol] 19 mmol/L High 8-15 [facility] Comment on above: Order Comment: Speci men Type: BLOOD SPECIMENOrdering Facility: [facility] Address: [address] [place] [address] Performed By: #### 1 23-9, ####[facility] LABCLIA [id number] [place] [address] [place] AST [Catalytic activity/Vol] 21 U/L Normal 14-40 [facility] Comment on above: Order Comment: Speci men Type: BLOOD SPECIMENOrdering Facility: [facility] Address: [address] [place], [place] [address] Performed By: #### 1 9123-9, ####[facility] LABCLIA [id number] [address] [address] [place] Bilirubin [Mass/Vol] 0.2 mg/dL Normal 0.2-1.3 [facility] Comment on above: Order Comment: Speci men Type: BLOOD SPECIMENOrdering Facility: [facility] Address: [address] [place] [id number] Performed By: #### 1 23-9, 12652-6 ####[facility] LABCLIA [id number] [address] [address] [place] Calcium [Mass/Vol] 8.9 mg/dL Normal 8.5-10.2 [facility] Comment on above: Order Comment: Speci men Type: BLOOD SPECIMENOrdering Facility: [facility] Address: [address] [place], [place] [address] Performed By: #### 1 9122-9, 28717-0 ####[facility] LABCLIA [id number] [place] [address] [place] Chloride [Moles/Vol] 90 mmol/L Low 98-107 [facility] Comment on above: Order Comment: Speci men Type: BLOOD SPECIMENOrdering Facility: [facility] Address: [address] [place] [address] Performed By: #### 1 9, 29679-9 ####[facility] LABIA [id number] [place] [address] [place] CO2 [Moles/Vol] 23 mmol/L Normal 22-30 [facility] Comment on above: Order Comment: Speci men Type: BLOOD SPECIMENOrdering Facility: [facility] Address: [address] [place], [place] [address] Performed By: #### 1 9, 19737-7 ####[facility] LABCLIA [id number] [address] [address] [place] Creatinine [Mass/Vol] 6.00 mg/dL High 0.73-1.22 [facility] Comment on above: Order Comment: Speci men Type: BLOOD SPECIMENOrdering Facility: [facility] Address: [address] [place], [place] [address] Performed By: #### 1 9, 25415-4 ####[facility] LABCLIA [id number] [place] [address] [place] Creatinine and Glomerular filtration rate.predicted panel (S/P/Bld) 8 mL/min/1.73m??? Low >=60 [facility] Comment on above: Order Comment: Lesvia aleman Type: BLOOD SPECIMENOrdering Facility: [facility] Address: [address] [place] [address] Result Comment: Tessa mated Glomerular Filtration Rate [...] actual GFR. Performed By: #### 1 9123-9, 75311-4 ####[facility] LABIA [id number] [place] [address] [place] Glucose [Mass/Vol] 227 mg/dL High 74-99 [facility] Comment on above: Order Comment: Lesvia aleman Type: BLOOD SPECIMENOrdering Facility: [facility] Address: [address] [place] [address] Result Comment: The [place] [employer] (ADA) provides guidance for cutoff [...] Standards of Medical Care in Diabetes 2016, [employer]. Diabetes Care. 2016.39(Suppl 1). Performed By: #### 1 9123-9, 01495-1 ####[facility] LABCLIA [id number] [address] [address] [place] Potassium [Moles/Vol] 5.3 mmol/L High 3.7-5.1 [facility] Comment on above: Order Comment: Speci men Type: BLOOD SPECIMENOrdering Facility: [facility] Address: [address] [place] [address] Performed By: #### 1 9123-9, 02494-8 ####[facility] LABCLIA [id number] [place] [id number] [place] Protein [Mass/Vol] 6.6 g/dL Normal 6.3-8.0 [facility] Comment on above: Order Comment: Speci men Type: BLOOD SPECIMENOrdering Facility: [facility] Address: [address] [place] [address] Performed By: #### 1 9123-9, 32640-4 ####[facility] LABCLIA [id number] [place] [id number] [place] Sodium [Moles/Vol] 132 mmol/L Low 136-144 [facility] Comment on above: Order Comment: Speci men Type: BLOOD SPECIMENOrdering Facility: [facility] Address: [address] [place] [address] Performed By: #### 1 9123-9, 18799-4 ####[facility] LABCLIA [id number] [place] [id number] [place] Urea nitrogen [Mass/Vol] 71 mg/dL High 9-24 [facility] Comment on above: Order Comment: Speci men Type: BLOOD SPECIMENOrdering Facility: [facility] Address: [address] [place], [place] [address] Performed By: #### 1 9123-9, 72185-9 ####[facility] LABCLIA [id number] [address] [address] [place] Magnesium SerPl-ncon 11-25 Magnesium [Mass/Vol] 2.5 mg/dL High 1.7-2.3 [facility] Comment on above: Order Comment: Speci men Type: BLOOD SPECIMENOrdering Facility: [facility] Address: [address] [place] [address] Performed By: #### 1 9123-9, 2777-1, 33713-6 ####[facility] LABCLIA [id number] [place] [address] [place] Magnesium [Mass/Vol] 2.6 mg/dL High 1.7-2.3 [facility] Comment on above: Order Comment: Speci men Type: BLOOD SPECIMENOrdering Facility: [facility] Address: [address] [place] [address] Performed By: #### 1 9123-9, 88887-3 ####[facility] LABIA [id number] [place] [address] [place] Phosphate SerPl-mCncon 11-25 Phosphate [Mass/Vol] 9.4 mg/dL High 2.7-4.8 [facility] Comment on above: Order Comment: Speci men Type: BLOOD SPECIMENOrdering Facility: [facility] Address: [address] [place] [address] Performed By: #### 1 9123-9, 2777-1, 60966-4 ####[facility] LABIA [id number] [place] [id number] [place] XR CHEST 1V FRONTAL PORTon 0 11-25-2024 XR CHEST 1V FRONTAL PORT Normal [facility] APIXABAN ASSAYon 11-24-2024 APIXABAN 36.00 ng/mL Normal [facility] Comment on above: Order Comment: Speci men Type: BLOOD SPECIMENOrdering Facility: [facility] Address: [address] [place] [address] Result Comment: APIX ABAN PEAK AND TROUGH [...] 572 ng/mLTrough: 41 to 335 ng/mLReference: Sunday CPT Pharmacocetrics Syst Pharmacol. 2017;6(5):340-349. Performed By: #### A PIXBN ####[facility] LABIA [id number] [place] [address] [place] ARTERIAL BLOOD GASESon 11-24 Base excess Calc (Bld) [Moles/Vol] 3 mmol/L High 0-2 [facility] Comment on above: Order Comment: Speci men Type: ARTERIAL BLOOD SPECIMENOrdering Facility: [facility] Address: [address] [place] [address] Performed By: #### A LLBG ####[facility] LABIA [id number] [address] [place] Body temperature 98.6 [degF] Normal [facility] Comment on above: Order Comment: Speci men Type: ARTERIAL BLOOD SPECIMENOrdering Facility: [facility] Address: [address] [place] [address] Performed By: #### A LLBG ####[facility] LABIA [id number] [place] [address] [place] Calcium.ionized (Bld) [Mass/Vol] 1.11 mmol/L Normal 1.08-1.30 [facility] Comment on above: Order Comment: Speci men Type: ARTERIAL BLOOD SPECIMENOrdering Facility: [facility] Address: [address] [place] [address] Performed By: #### A LLBG ####[facility] LABIA [id number] [place] [address] [place] Calcium.ionized adjusted to pH 7.4 (BldA) [Moles/Vol] 1.11 mmol/L Normal 1.08-1.30 [facility] Comment on above: Order Comment: Speci men Type: ARTERIAL BLOOD SPECIMENOrdering Facility: [facility] Address: [address] [place] [address] Performed By: #### A LLBG ####[facility] LABIA [id number] [place] [address] [place] Carboxyhemoglobin (BldA) [Mass fraction] 1.2 % Normal 0.0-2.0 [facility] Comment on above: Order Comment: Speci men Type: ARTERIAL BLOOD SPECIMENOrdering Facility: [facility] Address: [address] [place] [address] Result Comment: Carb oxyhemoglobin Reference Range for Smokers: 2.0-8.0% Performed By: #### A LLBG ####[facility] LABIA [id number] [place] [address] [place] CO2 (Bld) [Partial pressure] 45 mm Hg Normal 36-46 [facility] Comment on above: Order Comment: Speci men Type: ARTERIAL BLOOD SPECIMENOrdering Facility: [facility] Address: [address] [place] [address] Performed By: #### A LLBG ####[facility] LABIA [id number] [place] [address] [place] Glucose [Mass/Vol] 182 mg/dL High 60-105 [facility] Comment on above: Order Comment: Speci men Type: ARTERIAL BLOOD SPECIMENOrdering Facility: [facility] Address: [address] [place] [address] Performed By: #### A LLBG ####[facility] LABCLIA [id number] [place] [address] [place] HCO3 (Bld) [Moles/Vol] 27 mmol/L High 22-26 [facility] Comment on above: Order Comment: Speci men Type: ARTERIAL BLOOD SPECIMENOrdering Facility: [facility] Address: [address] [place] [address] Performed By: #### A LLBG ####[facility] LABCLIA [id number] [place] [address] [place] Hematocrit (Bld) [Volume fraction] 34.6 % Low 39.0-51.0 [facility] Comment on above: Order Comment: Speci men Type: ARTERIAL BLOOD SPECIMENOrdering Facility: [facility] Address: [address] [place] [address] Performed By: #### A LLBG ####[facility] LABCLIA [id number] [place] [address] [place] Hemoglobin (Bld) [Mass/Vol] 11.2 g/dL Low 13.0-17.0 [facility] Comment on above: Order Comment: Speci men Type: ARTERIAL BLOOD SPECIMENOrdering Facility: [facility] Address: [address] [place] [address] Performed By: #### A LLBG ####[facility] LABCLIA [id number] [place] [address] [place] Lactate [Moles/Vol] 1.1 mmol/L Normal 0.5-2.2 [facility] Comment on above: Order Comment: Speci men Type: ARTERIAL BLOOD SPECIMENOrdering Facility: [facility] Address: [address] [place] [address] Performed By: #### A LLBG ####[facility] LABCLIA [id number] [address] [id number] [address] [place] Methemoglobin (Bld) [Mass fraction] 1.3 % Normal 0.0-1.5 [facility] Comment on above: Order Comment: Speci men Type: ARTERIAL BLOOD SPECIMENOrdering Facility: [facility] Address: [address] [place] [address] Performed By: #### A LLBG ####[facility] LABCLIA [id number] [place] [address] [place] O2 THERAPY RA=Room Air Normal [facility] Comment on above: Order Comment: Speci men Type: ARTERIAL BLOOD SPECIMENOrdering Facility: [facility] Address: [address] [place] [address] Performed By: #### A LLBG ####[facility] LABCLIA [id number] [place] [address] [place] Oxygen (Bld) [Partial pressure] 78 mm Hg Low 85-95 [facility] Comment on above: Order Comment: Speci men Type: ARTERIAL BLOOD SPECIMENOrdering Facility: [facility] Address: [address] [place] [address] Performed By: #### A LLBG ####[facility] LABCLIA [id number] [place] [address] [place] Oxyhemoglobin (BldA) [Mass fraction] 92 % Low 95-98 [facility] Comment on above: Order Comment: Speci men Type: ARTERIAL BLOOD SPECIMENOrdering Facility: [facility] Address: [address] [place] [address] Performed By: #### A LLBG ####[facility] LABCLIA [id number] [place] [address] [place] pH (Bld) 7.40 [pH] Normal 7.35-7.45 [facility] Comment on above: Order Comment: Speci men Type: ARTERIAL BLOOD SPECIMENOrdering Facility: [facility] Address: [address] [place] [address] Performed By: #### A LLBG ####[facility] LABCLIA [id number] [place] [id number] [place] PO2 / FIO2 RATIO 371 mmHg Normal >300 [facility] Comment on above: Order Comment: Speci men Type: ARTERIAL BLOOD SPECIMENOrdering Facility: [facility] Address: [address] [place] [address] Performed By: #### A LLBG ####[facility] LABCLIA [id number] [place] [address] [place] Potassium [Moles/Vol] 5.0 mmol/L Normal 3.5-5.0 [facility] Comment on above: Order Comment: Speci men Type: ARTERIAL BLOOD SPECIMENOrdering Facility: [facility] Address: [address] [place] [address] Performed By: #### A LLBG ####[facility] LABCLIA [id number] [place] [address] [place] Sodium [Moles/Vol] 132 mmol/L Low 136-144 [facility] Comment on above: Order Comment: Speci men Type: ARTERIAL BLOOD SPECIMENOrdering Facility: [facility] Address: [address] [place] [address] Performed By: #### A LLBG ####[facility] LABCLIA [id number] [place] [address] [place] Base excess Calc (Bld) [Moles/Vol] 5 mmol/L High 0-2 [facility] Comment on above: Order Comment: Speci men Type: ARTERIAL BLOOD SPECIMENOrdering Facility: [facility] Address: [address] [place] [address] Performed By: #### A LLBG ####[facility] LABCLIA [id number] [place] [id number] [place] Body temperature 98.24 [degF] Normal [facility] Comment on above: Order Comment: Speci men Type: ARTERIAL BLOOD SPECIMENOrdering Facility: [facility] Address: [address] [place] [address] Performed By: #### A LLBG ####[facility] [id number] [place] [address] [place] Calcium.ionized (Bld) [Mass/Vol] 1.13 mmol/L Normal 1.08-1.30 [facility] Comment on above: Order Comment: Speci men Type: ARTERIAL BLOOD SPECIMENOrdering Facility: [facility] Address: [address] [place] [address] Performed By: #### A LLBG ####[facility] [id number] [place] [address] [place] Calcium.ionized adjusted to pH 7.4 (BldA) [Moles/Vol] 1.15 mmol/L Normal 1.08-1.30 [facility] Comment on above: Order Comment: Speci men Type: ARTERIAL BLOOD SPECIMENOrdering Facility: [facility] Address: [address] [place] [address] Performed By: #### A LLBG ####[facility] [id number] [place] [address] [place] Carboxyhemoglobin (BldA) [Mass fraction] 0.6 % Normal 0.0-2.0 [facility] Comment on above: Order Comment: Speci men Type: ARTERIAL BLOOD SPECIMENOrdering Facility: [facility] Address: [address] [place] [address] Result Comment: Carb oxyhemoglobin Reference Range for Smokers: 2.0-8.0% Performed By: #### A LLBG ####[facility] [id number] [place] [address] [place] CO2 (Bld) [Partial pressure] 45 mm Hg Normal 36-46 [facility] Comment on above: Order Comment: Speci men Type: ARTERIAL BLOOD SPECIMENOrdering Facility: [facility] Address: [address] [place] [address] Performed By: #### A LLBG ####[facility] LABCLIA [id number] [place] [address] [place] CO2 adjusted to patient's actual temperature (Bld) [Partial pressure] 44 mmHg Normal 36-46 [facility] Comment on above: Order Comment: Speci men Type: ARTERIAL BLOOD SPECIMENOrdering Facility: [facility] Address: [address] [place] [address] Performed By: #### A LLBG ####[facility] LABCLIA [id number] [place] [address] [place] Glucose [Mass/Vol] 73 mg/dL Normal 60-105 [facility] Comment on above: Order Comment: Speci men Type: ARTERIAL BLOOD SPECIMENOrdering Facility: [facility] Address: [address] [place] [address] Performed By: #### A LLBG ####[facility] LABCLIA [id number] [place] [address] [place] HCO3 (Bld) [Moles/Vol] 29 mmol/L High 22-26 [facility] Comment on above: Order Comment: Speci men Type: ARTERIAL BLOOD SPECIMENOrdering Facility: [facility] Address: [address] [place] [address] Performed By: #### A LLBG ####[facility] LABCLIA [id number] [place] [address] [place] Hematocrit (Bld) [Volume fraction] 34.8 % Low 39.0-51.0 [facility] Comment on above: Order Comment: Speci men Type: ARTERIAL BLOOD SPECIMENOrdering Facility: [facility] Address: [address] [place] [address] Performed By: #### A LLBG ####[facility] LABCLIA [id number] [place] [address] [place] Hemoglobin (Bld) [Mass/Vol] 11.3 g/dL Low 13.0-17.0 [facility] Comment on above: Order Comment: Speci men Type: ARTERIAL BLOOD SPECIMENOrdering Facility: [facility] Address: [address] [place] [address] Performed By: #### A LLBG ####[facility] LABIA [id number] [place] [address] [place] Lactate [Moles/Vol] 0.9 mmol/L Normal 0.5-2.2 [facility] Comment on above: Order Comment: Speci men Type: ARTERIAL BLOOD SPECIMENOrdering Facility: [facility] Address: [address] [place] [address] Performed By: #### A LLBG ####[facility] LABIA [id number] [place] [address] [place] Methemoglobin (Bld) [Mass fraction] 0.5 % Normal 0.0-1.5 [facility] Comment on above: Order Comment: Speci men Type: ARTERIAL BLOOD SPECIMENOrdering Facility: [facility] Address: [address] [place] [address] Performed By: #### A LLBG ####[facility] LABIA [id number] [place] [address] [place] O2 THERAPY RA=Room Air Normal [facility] Comment on above: Order Comment: Speci men Type: ARTERIAL BLOOD SPECIMENOrdering Facility: [facility] Address: [address] [place] [address] Performed By: #### A LLBG ####[facility] LABIA [id number] [place] [id number] [place] Oxygen (Bld) [Partial pressure] 98 mm Hg High 85-95 [facility] Comment on above: Order Comment: Speci men Type: ARTERIAL BLOOD SPECIMENOrdering Facility: [facility] Address: [address] [place] [address] Performed By: #### A LLBG ####[facility] LABCLIA [id number] [place] [id number] [place] Oxygen adjusted to patient's actual temperature (Bld) [Partial pressure] 97 mmHg High 85-95 [facility] Comment on above: Order Comment: Speci men Type: ARTERIAL BLOOD SPECIMENOrdering Facility: [facility] Address: [address] [place] [address] Performed By: #### A LLBG ####[facility] LABCLIA [id number] [place] [address] [place] Oxyhemoglobin (BldA) [Mass fraction] 95 % Normal 95-98 [facility] Comment on above: Order Comment: Speci men Type: ARTERIAL BLOOD SPECIMENOrdering Facility: [facility] Address: [address] [place] [address] Performed By: #### A LLBG ####[facility] LABCLIA [id number] [place] [address] [place] pH (Bld) 7.43 [pH] Normal 7.35-7.45 [facility] Comment on above: Order Comment: Speci men Type: ARTERIAL BLOOD SPECIMENOrdering Facility: [facility] Address: [address] [place] [address] Performed By: #### A LLBG ####[facility] LABCLIA [id number] [place] [address] [place] pH adjusted to patient's actual temperature (Bld) 7.44 Normal 7.35-7.45 [facility] Comment on above: Order Comment: Speci men Type: ARTERIAL BLOOD SPECIMENOrdering Facility: [facility] Address: [address] [place] [address] Performed By: #### A LLBG ####[facility] LABCLIA [id number] [place] [id number] [place] PO2 / FIO2 RATIO 467 mmHg Normal >300 [facility] Comment on above: Order Comment: Speci men Type: ARTERIAL BLOOD SPECIMENOrdering Facility: [facility] Address: [address] [place] [address] Performed By: #### A LLBG ####[facility] LABCLIA [id number] [place] [id number] [place] Potassium [Moles/Vol] 4.5 mmol/L Normal 3.5-5.0 [facility] Comment on above: Order Comment: Speci men Type: ARTERIAL BLOOD SPECIMENOrdering Facility: [facility] Address: [address] [place] [address] Performed By: #### A LLBG ####[facility] LABCLIA [id number] [place] [address] [place] Sodium [Moles/Vol] 135 mmol/L Low 136-144 [facility] Comment on above: Order Comment: Speci men Type: ARTERIAL BLOOD SPECIMENOrdering Facility: [facility] Address: [address] [place] [address] Performed By: #### A LLBG ####[facility] LABCLIA [id number] [place] [address] [place] Base excess Calc (Bld) [Moles/Vol] 4 mmol/L High 0-2 [facility] Comment on above: Order Comment: Speci men Type: ARTERIAL BLOOD SPECIMENOrdering Facility: [facility] Address: [address] [place] [address] Performed By: #### A LLBG ####[facility] LABCLIA [id number] [place] [address] [place] Body temperature 98.6 [degF] Normal [facility] Comment on above: Order Comment: Speci men Type: ARTERIAL BLOOD SPECIMENOrdering Facility: [facility] Address: [address] [place], [place] [address] Performed By: #### A LLBG ####[facility] LABCLIA [id number] [place] [address] [place] Calcium.ionized (Bld) [Mass/Vol] 1.12 mmol/L Normal 1.08-1.30 [facility] Comment on above: Order Comment: Speci men Type: ARTERIAL BLOOD SPECIMENOrdering Facility: [facility] Address: [address] [place] [address] Performed By: #### A LLBG ####[facility] LABIA [id number] [place] [address] [place] Calcium.ionized adjusted to pH 7.4 (BldA) [Moles/Vol] 1.15 mmol/L Normal 1.08-1.30 [facility] Comment on above: Order Comment: Speci men Type: ARTERIAL BLOOD SPECIMENOrdering Facility: [facility] Address: [address] [place] [address] Performed By: #### A LLBG ####[facility] [id number] [place] [address] [place] Carboxyhemoglobin (BldA) [Mass fraction] 1.0 % Normal 0.0-2.0 [facility] Comment on above: Order Comment: Speci men Type: ARTERIAL BLOOD SPECIMENOrdering Facility: [facility] Address: [address] [place] [address] Result Comment: Carb oxyhemoglobin Reference Range for Smokers: 2.0-8.0% Performed By: #### A LLBG ####[facility] LABIA [id number] [place] [address] [place] CO2 (Bld) [Partial pressure] 43 mm Hg Normal 36-46 [facility] Comment on above: Order Comment: Speci men Type: ARTERIAL BLOOD SPECIMENOrdering Facility: [facility] Address: [address] [place] [address] Performed By: #### A LLBG ####[facility] LABIA [id number] [place] [address] [place] Glucose [Mass/Vol] 83 mg/dL Normal 60-105 [facility] Comment on above: Order Comment: Speci men Type: ARTERIAL BLOOD SPECIMENOrdering Facility: [facility] Address: [address] [place] [address] Performed By: #### A LLBG ####[facility] LABCLIA [id number] [place] [address] [place] HCO3 (Bld) [Moles/Vol] 29 mmol/L High 22-26 [facility] Comment on above: Order Comment: Speci men Type: ARTERIAL BLOOD SPECIMENOrdering Facility: [facility] Address: [address] [place] [address] Performed By: #### A LLBG ####[facility] LABCLIA [id number] [place] [address] [place] Hematocrit (Bld) [Volume fraction] 33.1 % Low 39.0-51.0 [facility] Comment on above: Order Comment: Speci men Type: ARTERIAL BLOOD SPECIMENOrdering Facility: [facility] Address: [address] [place] [address] Performed By: #### A LLBG ####[facility] LABCLIA [id number] [place] [address] [place] Hemoglobin (Bld) [Mass/Vol] 10.7 g/dL Low 13.0-17.0 [facility] Comment on above: Order Comment: Speci men Type: ARTERIAL BLOOD SPECIMENOrdering Facility: [facility] Address: [address] [place], [place] [address] Performed By: #### A LLBG ####[facility] LABCLIA [id number] [place] [id number] [place] Lactate [Moles/Vol] 0.8 mmol/L Normal 0.5-2.2 [facility] Comment on above: Order Comment: Speci men Type: ARTERIAL BLOOD SPECIMENOrdering Facility: [facility] Address: [address] [place] [address] Performed By: #### A LLBG ####[facility] LABCLIA [id number] [place] [id number] [place] Methemoglobin (Bld) [Mass fraction] 1.6 % High 0.0-1.5 [facility] Comment on above: Order Comment: Speci men Type: ARTERIAL BLOOD SPECIMENOrdering Facility: [facility] Address: [address] [place] [address] Performed By: #### A LLBG ####[facility] LABCLIA [id number] [place] [id number] [place] O2 THERAPY RA=Room Air Normal [facility] Comment on above: Order Comment: Speci men Type: ARTERIAL BLOOD SPECIMENOrdering Facility: [facility] Address: [address] [place] [address] Performed By: #### A LLBG ####[facility] LABCLIA [id number] [place] [id number] [place] Oxygen (Bld) [Partial pressure] 94 mm Hg Normal 85-95 [facility] Comment on above: Order Comment: Speci men Type: ARTERIAL BLOOD SPECIMENOrdering Facility: [facility] Address: [address] [place] [address] Performed By: #### A LLBG ####[facility] LABCLIA [id number] [address] [address] [place] Oxyhemoglobin (BldA) [Mass fraction] 94 % Low 95-98 [facility] Comment on above: Order Comment: Speci men Type: ARTERIAL BLOOD SPECIMENOrdering Facility: [facility] Address: [address] [place] [address] Performed By: #### A LLBG ####[facility] LABCLIA [id number] [address] [address] [place] pH (Bld) 7.44 [pH] Normal 7.35-7.45 [facility] Comment on above: Order Comment: Speci men Type: ARTERIAL BLOOD SPECIMENOrdering Facility: [facility] Address: [address] [place] [address] Performed By: #### A LLBG ####[facility] LABCLIA [id number] [place] [address] [place] PO2 / FIO2 RATIO 448 mmHg Normal >300 [facility] Comment on above: Order Comment: Speci men Type: ARTERIAL BLOOD SPECIMENOrdering Facility: [facility] Address: [address] [place] [address] Performed By: #### A LLBG ####[facility] LABCLIA [id number] [place] [address] [place] Potassium [Moles/Vol] 4.3 mmol/L Normal 3.5-5.0 [facility] Comment on above: Order Comment: Speci men Type: ARTERIAL BLOOD SPECIMENOrdering Facility: [facility] Address: [address] [place] [address] Performed By: #### A LLBG ####[facility] LABCLIA [id number] [place] [address] [place] Sodium [Moles/Vol] 134 mmol/L Low 136-144 [facility] Comment on above: Order Comment: Speci men Type: ARTERIAL BLOOD SPECIMENOrdering Facility: [facility] Address: [address] [place] [address] Performed By: #### A LLBG ####[facility] LABCLIA [id number] [place] [address] [place] Base excess Calc (Bld) [Moles/Vol] 5 mmol/L High 0-2 [facility] Comment on above: Order Comment: Speci men Type: ARTERIAL BLOOD SPECIMENOrdering Facility: [facility] Address: [address] [place] [address] Performed By: #### A LLBG ####[facility] LABCLIA [id number] [place] [address] [place] Body temperature 98.6 [degF] Normal [facility] Comment on above: Order Comment: Speci men Type: ARTERIAL BLOOD SPECIMENOrdering Facility: [facility] Address: [address] [place] [address] Performed By: #### A LLBG ####[facility] LABCLIA [id number] [place] [address] [place] Calcium.ionized (Bld) [Mass/Vol] 1.15 mmol/L Normal 1.08-1.30 [facility] Comment on above: Order Comment: Speci men Type: ARTERIAL BLOOD SPECIMENOrdering Facility: [facility] Address: [address] [place] [address] Performed By: #### A LLBG ####[facility] LABIA [id number] [place] [address] [place] Calcium.ionized adjusted to pH 7.4 (BldA) [Moles/Vol] 1.19 mmol/L Normal 1.08-1.30 [facility] Comment on above: Order Comment: Speci men Type: ARTERIAL BLOOD SPECIMENOrdering Facility: [facility] Address: [address] [place] [address] Performed By: #### A LLBG ####[facility] LABCLIA [id number] [place] [address] [place] Carboxyhemoglobin (BldA) [Mass fraction] 0.2 % Normal 0.0-2.0 [facility] Comment on above: Order Comment: Speci men Type: ARTERIAL BLOOD SPECIMENOrdering Facility: [facility] Address: [address] [place] [address] Result Comment: Carb oxyhemoglobin Reference Range for Smokers: 2.0-8.0% Performed By: #### A LLBG ####[facility] LABCLIA [id number] [address] [place] [address] [place] CO2 (Bld) [Partial pressure] 40 mm Hg Normal 36-46 [facility] Comment on above: Order Comment: Speci men Type: ARTERIAL BLOOD SPECIMENOrdering Facility: [facility] Address: [address] [place] [address] Performed By: #### A LLBG ####[facility] LABCLIA [id number] [address], [facility]95 [place] Glucose [Mass/Vol] 121 mg/dL High 60-105 [facility] Comment on above: Order Comment: Speci men Type: ARTERIAL BLOOD SPECIMENOrdering Facility: [facility] Address: [address] [place] [address] Performed By: #### A LLBG ####[facility] LABCLIA [id number] [place] [id number] [place] HCO3 (Bld) [Moles/Vol] 28 mmol/L High 22-26 [facility] Comment on above: Order Comment: Speci men Type: ARTERIAL BLOOD SPECIMENOrdering Facility: [facility] Address: [address] [place] [address] Performed By: #### A LLBG ####[facility] LABCLIA [id number] [address], [facility]95 [place] Hematocrit (Bld) [Volume fraction] 33.3 % Low 39.0-51.0 [facility] Comment on above: Order Comment: Speci men Type: ARTERIAL BLOOD SPECIMENOrdering Facility: [facility] Address: [address] [place] [address] Performed By: #### A LLBG ####[facility] LABCLIA [id number] [place] [id number] [place] Hemoglobin (Bld) [Mass/Vol] 10.8 g/dL Low 13.0-17.0 [facility] Comment on above: Order Comment: Speci men Type: ARTERIAL BLOOD SPECIMENOrdering Facility: [facility] Address: [address] [place] [address] Performed By: #### A LLBG ####[facility] LABCLIA [id number] [place] [address] [place] Lactate [Moles/Vol] 1.5 mmol/L Normal 0.5-2.2 [facility] Comment on above: Order Comment: Speci men Type: ARTERIAL BLOOD SPECIMENOrdering Facility: [facility] Address: [address] [place] [address] Performed By: #### A LLBG ####[facility] LABIA [id number] [place] [address] [place] Methemoglobin (Bld) [Mass fraction] 0.4 % Normal 0.0-1.5 [facility] Comment on above: Order Comment: Speci men Type: ARTERIAL BLOOD SPECIMENOrdering Facility: [facility] Address: [address] [place] [address] Performed By: #### A LLBG ####[facility] LABIA [id number] [place] [address] [place] O2 THERAPY RA=Room Air Normal [facility] Comment on above: Order Comment: Speci men Type: ARTERIAL BLOOD SPECIMENOrdering Facility: [facility] Address: [address] [place] [address] Performed By: #### A LLBG ####[facility] LABCLIA [id number] [place] [id number] [place] Oxygen (Bld) [Partial pressure] 119 mm Hg High 85-95 [facility] Comment on above: Order Comment: Speci men Type: ARTERIAL BLOOD SPECIMENOrdering Facility: [facility] Address: [address] [place] [address] Performed By: #### A LLBG ####[facility] LABIA [id number] [place] [id number] [place] Oxyhemoglobin (BldA) [Mass fraction] 97 % Normal 95-98 [facility] Comment on above: Order Comment: Speci men Type: ARTERIAL BLOOD SPECIMENOrdering Facility: [facility] Address: [address] [place] [address] Performed By: #### A LLBG ####[facility] LABCLIA [id number] [place] [id number] [place] pH (Bld) 7.47 [pH] High 7.35-7.45 [facility] Comment on above: Order Comment: Speci men Type: ARTERIAL BLOOD SPECIMENOrdering Facility: [facility] Address: [address] [place] [address] Performed By: #### A LLBG ####[facility] LABCLIA [id number] [place] [address] [place] PO2 / FIO2 RATIO 567 mmHg Normal >300 [facility] Comment on above: Order Comment: Speci men Type: ARTERIAL BLOOD SPECIMENOrdering Facility: [facility] Address: [address] [place] [address] Performed By: #### A LLBG ####[facility] LABCLIA [id number] [place] [address] [place] Potassium [Moles/Vol] 4.0 mmol/L Normal 3.5-5.0 [facility] Comment on above: Order Comment: Speci men Type: ARTERIAL BLOOD SPECIMENOrdering Facility: [facility] Address: [address] [place] [address] Performed By: #### A LLBG ####[facility] LABCLIA [id number] [place] [id number] [place] Sodium [Moles/Vol] 134 mmol/L Low 136-144 [facility] Comment on above: Order Comment: Speci men Type: ARTERIAL BLOOD SPECIMENOrdering Facility: [facility] Address: [address] [place] [address] Performed By: #### A LLBG ####[facility] LABCLIA [id number] [facility] [id number] [place] [address] [place] Basic Metabolic Profile (BMP )on 11-24-2024 BUN Normal 4-19 [facility] Comment on above: Result Comment: Canc elled via OM: MD Ordered Performed By: #### L 500.2500, L100.0100 ####[facility] [address] [place], [address] BUN/CRE Normal 10-20 [facility] Comment on above: Result Comment: Canc elled via OM: MD Ordered Performed By: #### L 500.2500, L100.0100 ####[facility] [address] [place], [address] Calcium Normal 7.6-11.0 [facility] Comment on above: Result Comment: Canc elled via OM: MD Ordered Performed By: #### L 500.2500, L100.0100 ####[facility] [address] [place], [address] CL Normal 98-108 [facility] Comment on above: Result Comment: Canc elled via OM: MD Ordered Performed By: #### L 500.2500, L100.0100 ####[facility] [address] [place], [address] CO2 Normal 21.0-32.0 [facility] Comment on above: Result Comment: Canc elled via OM: MD Ordered Performed By: #### L 500.2500, L100.0100 ####[facility] [address] [place], [address] CREAT,SERUM Normal 0.70-1.20 [facility] Comment on above: Result Comment: Canc elled via OM: MD Ordered Performed By: #### L 500.2500, L100.0100 ####[facility] [address] [place], [address] eGFR Normal >60 [facility] Comment on above: Result Comment: Canc elled via OM: MD Ordered Performed By: #### L 500.2500, L100.0100 ####[facility] [address] [place], [address] GAP Normal 5-15 [facility] Comment on above: Result Comment: Canc elled via OM: MD Ordered Performed By: #### L 500.2500, L100.0100 ####[facility] [address] [place], [address] GLU Normal 70-99 [facility] Comment on above: Result Comment: Canc elled via OM: MD Ordered Performed By: #### L 500.2500, L100.0100 ####[facility] [address] [place], [address] Potassium Normal 3.3-5.1 [facility] Comment on above: Result Comment: Canc elled via OM: MD Ordered Performed By: #### L 500.2500, L100.0100 ####[facility] [address] [place], [address] Basic Metabolic Profile (BMP) Normal 133-145 [facility] Comment on above: Result Comment: Canc elled via OM: MD Ordered Performed By: #### L 500.2500, L100.0100 ####[facility] [address] [place], [address] CBC W/Diff, Automatedon 07-0 5-2024 Absolute Neut Normal 2.0-7.7 [facility] Comment on above: Result Comment: Canc elled via OM: MD Ordered Performed By: #### L 500.2500, L100.0100 ####[facility] [address] [place], [address] HCT Normal 40-54 [facility] Comment on above: Result Comment: Canc elled via OM: MD Ordered Performed By: #### L 500.2500, L100.0100 ####[facility] [address] [place], [address] HGB Normal 13.0-16.5 [facility] Comment on above: Result Comment: Canc elled via OM: MD Ordered Performed By: #### L 500.2500, L100.0100 ####[facility] [address] [place], [address] MCH Normal 27.0-32.0 [facility] Comment on above: Result Comment: Canc elled via OM: MD Ordered Performed By: #### L 500.2500, L100.0100 ####[facility] [address] [place], [address] MCHC Normal 32-36 [facility] Comment on above: Result Comment: Canc elled via OM: MD Ordered Performed By: #### L 500.2500, L100.0100 ####[facility] [address] [place], [address] MCV Normal 80-94 [facility] Comment on above: Result Comment: Canc elled via OM: MD Ordered Performed By: #### L 500.2500, L100.0100 ####[facility] [address] [place], [address] NEUT% Normal 47-70 [facility] Comment on above: Result Comment: Canc elled via OM: MD Ordered Performed By: #### L 500.2500, L100.0100 ####[facility] [address] [place], [address] PLT Normal 150-450 [facility] Comment on above: Result Comment: Canc elled via OM: MD Ordered Performed By: #### L 500.2500, L100.0100 ####[facility] [address] [place], [address] RBC Normal 4.6-6.2 [facility] Comment on above: Result Comment: Canc elled via OM: MD Ordered Performed By: #### L 500.2500, L100.0100 ####[facility] [address] [place], [address] RDW CV Normal 11.6-14.6 [facility] Comment on above: Result Comment: Canc elled via OM: MD Ordered Performed By: #### L 500.2500, L100.0100 ####[facility] [address] [place], [address] RDW SD Normal 35.1-43.9 [facility] Comment on above: Result Comment: Canc elled via OM: MD Ordered Performed By: #### L 500.2500, L100.0100 ####[facility] [address] [place], [address] WBC Normal 4.4-11.0 [facility] Comment on above: Result Comment: Canc elled via OM: MD Ordered Performed By: #### L 500.2500, L100.0100 ####[facility] [address] [place], [address] CBC panel Auto (Bld)on 11-24 Erythrocyte distribution width (RBC) [Ratio] 15.7 % High 11.5-15.0 [facility] Comment on above: Order Comment: Speci men Type: BLOOD SPECIMENOrdering Facility: [facility] Address: [address] [place] [address] Performed By: #### 5 8410-2 ####[facility] LABCLIA [id number] [address] [address] [place] Hematocrit (Bld) [Volume fraction] 32.8 % Low 39.0-51.0 [facility] Comment on above: Order Comment: Speci men Type: BLOOD SPECIMENOrdering Facility: [facility] Address: [address] [place] [address] Performed By: #### 5 8410-2 ####[facility] LABIA [id number] [place] [address] [place] Hemoglobin (Bld) [Mass/Vol] 10.8 g/dL Low 13.0-17.0 [facility] Comment on above: Order Comment: Speci men Type: BLOOD SPECIMENOrdering Facility: [facility] Address: [address] [place] [address] Performed By: #### 5 8410-2 ####[facility] LABIA [id number] [place] [address] [place] MCH (RBC) [Entitic mass] 28.5 pg Normal 26.0-34.0 [facility] Comment on above: Order Comment: Speci men Type: BLOOD SPECIMENOrdering Facility: [facility] Address: [address] [place] [address] Performed By: #### 5 8410-2 ####[facility] [id number] [place] [address] [place] MCHC (RBC) [Mass/Vol] 32.9 g/dL Normal 30.5-36.0 [facility] Comment on above: Order Comment: Speci men Type: BLOOD SPECIMENOrdering Facility: [facility] Address: [address] [place] [address] Performed By: #### 5 8410-2 ####[facility] LABIA [id number] [place] [address] [place] MCV (RBC) [Entitic vol] 86.5 fL Normal 80.0-100.0 [facility] Comment on above: Order Comment: Speci men Type: BLOOD SPECIMENOrdering Facility: [facility] Address: [address] [place] [address] Performed By: #### 5 8410-2 ####[facility] LABIA [id number] [address] [address] [place] Nucleated RBC (Bld) [#/Vol] 10*3/uL Normal <0.01 [facility] Comment on above: Order Comment: Speci men Type: BLOOD SPECIMENOrdering Facility: [facility] Address: [address] [place] [address] Performed By: #### 5 8410-2 ####[facility] LABCLIA [id number] [place] [address] [place] Platelet mean volume (Bld) [Entitic vol] 11.5 fL Normal 9.0-12.7 [facility] Comment on above: Order Comment: Speci men Type: BLOOD SPECIMENOrdering Facility: [facility] Address: [address] [place] [address] Performed By: #### 5 8410-2 ####[facility] LABCLIA [id number] [place] [address] [place] Platelets (Bld) [#/Vol] 152 10*3/uL Normal 150-400 [facility] Comment on above: Order Comment: Speci men Type: BLOOD SPECIMENOrdering Facility: [facility] Address: [address] [place] [address] Performed By: #### 5 8410-2 ####[facility] LABCLIA [id number] [place] [address] [place] RBC (Bld) [#/Vol] 3.79 10*6/uL Low 4.20-6.00 [facility] Comment on above: Order Comment: Speci men Type: BLOOD SPECIMENOrdering Facility: [facility] Address: [address] [place] [address] Performed By: #### 5 8410-2 ####[facility] LABCLIA [id number] [place] [id number] [place] WBC (Bld) [#/Vol] 8.79 10*3/uL Normal 3.70-11.00 [facility] Comment on above: Order Comment: Speci men Type: BLOOD SPECIMENOrdering Facility: [facility] Address: [address] [place] [address] Performed By: #### 5 8410-2 ####[facility] LABCLIA [id number] [address] [address] [place] Comprehensive metabolic 2000 panelon 11-24-2024 Albumin [Mass/Vol] 3.3 g/dL Low 3.9-4.9 [facility] Comment on above: Order Comment: Speci men Type: BLOOD SPECIMENOrdering Facility: [facility] Address: [address] [place] [address] Performed By: #### 1 9123-9, 97156-3, 2777-1 ####[facility] LABIA [id number] [place] [address] [place] ALP [Catalytic activity/Vol] 64 U/L Normal 38-113 [facility] Comment on above: Order Comment: Speci men Type: BLOOD SPECIMENOrdering Facility: [facility] Address: [address] [place] [address] Performed By: #### 1 9123-9, 71226-1, 2777-1 ####[facility] LABIA [id number] [place] [address] [place] ALT [Catalytic activity/Vol] 35 U/L Normal 10-54 [facility] Comment on above: Order Comment: Speci men Type: BLOOD SPECIMENOrdering Facility: [facility] Address: [address] [place] [address] Performed By: #### 1 9123-9, 92850-5, 2777-1 ####[facility] LABIA [id number] [place] [id number] [place] Anion gap [Moles/Vol] 16 mmol/L High 8-15 [facility] Comment on above: Order Comment: Speci men Type: BLOOD SPECIMENOrdering Facility: [facility] Address: [address] [place] [address] Performed By: #### 1 9123-9, 83142-0, 2777- ####[facility] LABIA [id number] [place] [address] [place] AST [Catalytic activity/Vol] 14 U/L Normal 14-40 [facility] Comment on above: Order Comment: Speci men Type: BLOOD SPECIMENOrdering Facility: [facility] Address: [address] [place] [address] Performed By: #### 1 9123-9, 14843-3, 2777- ####[facility] LABIA [id number] [place] [address] [place] Bilirubin [Mass/Vol] 0.2 mg/dL Normal 0.2-1.3 [facility] Comment on above: Order Comment: Speci men Type: BLOOD SPECIMENOrdering Facility: [facility] Address: [address] [place] [address] Performed By: #### 1 9123-9, 89220-9, 2777- ####[facility] LABIA [id number] [place] [address] [place] Calcium [Mass/Vol] 9.1 mg/dL Normal 8.5-10.2 [facility] Comment on above: Order Comment: Speci men Type: BLOOD SPECIMENOrdering Facility: [facility] Address: [address] [place] [address] Performed By: #### 1 9123-9, 60014-5, 2777- ####[facility] LABIA [id number] [place] [address] [place] Chloride [Moles/Vol] 93 mmol/L Low 98-107 [facility] Comment on above: Order Comment: Speci men Type: BLOOD SPECIMENOrdering Facility: [facility] Address: [address] [place] [address] Performed By: #### 1 9123-9, 53912-4, 2776-05 ####[facility] LABCLIA [id number] [place] [id number] [place] CO2 [Moles/Vol] 27 mmol/L Normal 22-30 [facility] Comment on above: Order Comment: Speci men Type: BLOOD SPECIMENOrdering Facility: [facility] Address: [address] [place] [address] Performed By: #### 1 9123-9, 16857-6, 2776-05 ####[facility] LABIA [id number] [place] [address] [place] Creatinine [Mass/Vol] 4.46 mg/dL High 0.73-1.22 [facility] Comment on above: Order Comment: Speci men Type: BLOOD SPECIMENOrdering Facility: [facility] Address: [address] [place] [address] Performed By: #### 1 9123-9, , 2776-05 ####[facility] LABIA [id number] [place] [address] [place] Creatinine and Glomerular filtration rate.predicted panel (S/P/Bld) 12 mL/min/1.73m??? Low >=60 [facility] Comment on above: Order Comment: Speci men Type: BLOOD SPECIMENOrdering Facility: [facility] Address: [address] [place] [address] Result Comment: Tessa mated Glomerular Filtration Rate [...] actual GFR. Performed By: #### 1 9123-9, 81315-9, 277- ####[facility] LABIA [id number] [address] [address] [place] Glucose [Mass/Vol] 118 mg/dL High 74-99 [facility] Comment on above: Order Comment: Speci men Type: BLOOD SPECIMENOrdering Facility: [facility] Address: [address] [place] [address] Result Comment: The [place] [employer] (ADA) provides guidance for cutoff [...] Standards of Medical Care in Diabetes 2016, [place] [employer]. Diabetes Care. 2016.39(Suppl 1). Performed By: #### 1 9123-9, 50150-8, 2777- ####[facility] LABIA [id number] [place] [id number] [place] Potassium [Moles/Vol] 4.2 mmol/L Normal 3.7-5.1 [facility] Comment on above: Order Comment: Speci men Type: BLOOD SPECIMENOrdering Facility: [facility] Address: [address] [place] [address] Performed By: #### 1 9123-9, 33975-3, 2777- ####[facility] LABIA [id number] [place] [address] [place] Protein [Mass/Vol] 6.2 g/dL Low 6.3-8.0 [facility] Comment on above: Order Comment: Speci men Type: BLOOD SPECIMENOrdering Facility: [facility] Address: [address] [place], [place] [address] Performed By: #### 1 9123-9, 04069-2, 2777-1 ####[facility] LABIA [id number] [address] [address] [place] Sodium [Moles/Vol] 136 mmol/L Normal 136-144 [facility] Comment on above: Order Comment: Speci men Type: BLOOD SPECIMENOrdering Facility: [facility] Address: [address] [place] [address] Performed By: #### 1 9123-9, 84102-2, 2777-1 ####[facility] LABIA [id number] [place] [address] [place] Urea nitrogen [Mass/Vol] 49 mg/dL High 9-24 [facility] Comment on above: Order Comment: Speci men Type: BLOOD SPECIMENOrdering Facility: [facility] Address: [address] [place] [address] Performed By: #### 1 9123-9, 28990-9, 2777-1 ####[facility] [id number] [place] [address] [place] Gas and Carbon monoxide pane l (BldV)on 11-24-2024 BASE DEFICIT, VENOUS Normal [facility] Comment on above: Order Comment: Speci men Type: VENOUS BLOOD SPECIMENOrdering Facility: [facility] Address: [address] [place] [address] Result Comment: Vj brown RN Canceled by Clinician Performed By: #### 2 4344-4 ####[facility] [id number] [place] [id number] [place] Base excess Calc (BldV) [Moles/Vol] Normal 0-2 [facility] Comment on above: Order Comment: Speci men Type: VENOUS BLOOD SPECIMENOrdering Facility: [facility] Address: [address] [place] [address] Result Comment: Vj brown RN Canceled by ClinicianCorrected result: Previously reported as 4 mmol/L on 11/24/2024 at 7:44 AM EDT. Performed By: #### 2 4344-4 ####[facility] LABCLIA [id number] [address] [place] Calcium.ionized (Bld) [Mass/Vol] Normal 1.08-1.30 [facility] Comment on above: Order Comment: Speci men Type: VENOUS BLOOD SPECIMENOrdering Facility: [facility] Address: [address] [place] [address] Result Comment: Vj brown RN Canceled by ClinicianCorrected result: Previously reported as 1.14 mmol/L on 11/24/2024 at 7:44 AM EDT. Performed By: #### 2 4344-4 ####[facility] LABCLIA [id number] [address] STATES OF [facility] Calcium.ionized adjusted to pH 7.4 (BldA) [Moles/Vol] Normal 1.08-1.30 [facility] Comment on above: Order Comment: Speci men Type: VENOUS BLOOD SPECIMENOrdering Facility: [facility] Address: [address] [place] [address] Result Comment: Vj brown RN Canceled by ClinicianCorrected result: Previously reported as 1.15 mmol/L on 11/24/2024 at 7:44 AM EDT. Performed By: #### 2 4344-4 ####[facility] LABCLIA [id number] [address] [place] Carboxyhemoglobin (BldV) [Mass fraction] Normal 0.0-2.0 [facility] Comment on above: Order Comment: Speci men Type: VENOUS BLOOD SPECIMENOrdering Facility: [facility] Address: [address] [place] [address] Result Comment: Vj brown RN Canceled by ClinicianCorrected result: Previously reported as 1.2 % on 11/24/2024 at 7:44 AM EDT. Performed By: #### 2 4344-4 ####[facility] LABCLIA [id number] [place] [address] [place] CO2 (BldV) [Partial pressure] Normal 42-55 [facility] Comment on above: Order Comment: Speci men Type: VENOUS BLOOD SPECIMENOrdering Facility: [facility] Address: [address] [place] [address] Result Comment: Vj brown RN Canceled by ClinicianCorrected result: Previously reported as 46 mmHg on 11/24/2024 at 7:44 AM EDT. Performed By: #### 2 4344-4 ####[facility] LABIA [id number] [place] [address] [place] CO2 adjusted to patient's actual temperature (BldV) [Partial pressure] Normal 42-55 [facility] Comment on above: Order Comment: Speci men Type: VENOUS BLOOD SPECIMENOrdering Facility: [facility] Address: [address] [place] [address] Result Comment: Vj brown RN Canceled by ClinicianCorrected result: Previously reported as 46 mmHg on 11/24/2024 at 7:44 AM EDT. Performed By: #### 2 4344-4 ####[facility] LABIA [id number] [place] [address] [place] Glucose [Mass/Vol] Normal 60-105 [facility] Comment on above: Order Comment: Speci men Type: VENOUS BLOOD SPECIMENOrdering Facility: [facility] Address: [address] [place] [address] Result Comment: Vj brown RN Canceled by ClinicianCorrected result: Previously reported as 78 mg/dL on 11/24/2024 at 7:44 AM EDT. Performed By: #### 2 4344-4 ####[facility] LABCLIA [id number] [place] [address] [place] HCO3 (Bld) [Moles/Vol] Normal 24-28 [facility] Comment on above: Order Comment: Speci men Type: VENOUS BLOOD SPECIMENOrdering Facility: [facility] Address: [address] [place] [address] Result Comment: Vj brown RN Canceled by ClinicianCorrected result: Previously reported as 29 mmol/L on 11/24/2024 at 7:44 AM EDT. Performed By: #### 2 4344-4 ####[facility] LABIA [id number] [place] [address] [place] Hematocrit (Bld) [Volume fraction] Normal 39.0-51.0 [facility] Comment on above: Order Comment: Speci men Type: VENOUS BLOOD SPECIMENOrdering Facility: [facility] Address: [address] [place] [address] Result Comment: Vj brown RN Canceled by ClinicianCorrected result: Previously reported as 34.7 % on 11/24/2024 at 7:44 AM EDT. Performed By: #### 2 4344-4 ####[facility] LABIA [id number] [place] [address] [place] Hemoglobin (Bld) [Mass/Vol] Normal 13.0-17.0 [facility] Comment on above: Order Comment: Speci men Type: VENOUS BLOOD SPECIMENOrdering Facility: [facility] Address: [address] [place] [address] Result Comment: Vj brown RN Canceled by ClinicianCorrected result: Previously reported as 11.2 g/dL on 11/24/2024 at 7:44 AM EDT. Performed By: #### 2 4344-4 ####[facility] [id number] [place] [address] [place] Lactate [Moles/Vol] Normal 0.5-2.2 [facility] Comment on above: Order Comment: Speci men Type: VENOUS BLOOD SPECIMENOrdering Facility: [facility] Address: [address] [place] [address] Result Comment: Vj brown RN Canceled by ClinicianCorrected result: Previously reported as 0.9 mmol/L on 11/24/2024 at 7:44 AM EDT. Performed By: #### 2 4344-4 ####[facility] LABCLIA [id number] [address] [address] [place] Methemoglobin (Bld) [Mass fraction] Normal 0.0-1.5 [facility] Comment on above: Order Comment: Speci men Type: VENOUS BLOOD SPECIMENOrdering Facility: [facility] Address: [address] [place] [address] Result Comment: Vj brown RN Canceled by ClinicianCorrected result: Previously reported as 1.0 % on 11/24/2024 at 7:44 AM EDT. Performed By: #### 2 4344-4 ####[facility] LABIA [id number] [address] STATES OF [facility] O2 THERAPY RA=Room Air Normal [facility] Comment on above: Order Comment: Speci men Type: VENOUS BLOOD SPECIMENOrdering Facility: [facility] Address: [address] [place] [address] Performed By: #### 2 4344-4 ####[facility] LABIA [id number] [place] [address] [place] Oxygen (BldV) [Partial pressure] Normal 35-45 [facility] Comment on above: Order Comment: Speci men Type: VENOUS BLOOD SPECIMENOrdering Facility: [facility] Address: [address] [place] [address] Result Comment: Vj brown RN Canceled by ClinicianCorrected result: Previously reported as 85 mmHg on 11/24/2024 at 7:44 AM EDT. Performed By: #### 2 4344-4 ####[facility] LABCLIA [id number] [address] [address] [place] Oxygen adjusted to patient's actual temperature (BldV) [Partial pressure] Normal 35-45 [facility] Comment on above: Order Comment: Speci men Type: VENOUS BLOOD SPECIMENOrdering Facility: [facility] Address: [address] [place] [address] Result Comment: Vj brown RN Canceled by ClinicianCorrected result: Previously reported as 84 mmHg on 11/24/2024 at 7:44 AM EDT. Performed By: #### 2 4344-4 ####[facility] LABCLIA [id number] [address] [address] [place] Oxygen saturation in Venous blood Normal 60-85 [facility] Comment on above: Order Comment: Speci men Type: VENOUS BLOOD SPECIMENOrdering Facility: [facility] Address: [address] [place] [address] Result Comment: Vj brown RN Canceled by ClinicianCorrected result: Previously reported as 96 % on 11/24/2024 at 7:44 AM EDT. Performed By: #### 2 4344-4 ####[facility] LABCLIA [id number] [address] [address] [place] Oxyhemoglobin (BldV) [Mass fraction] Normal 60-85 [facility] Comment on above: Order Comment: Speci men Type: VENOUS BLOOD SPECIMENOrdering Facility: [facility] Address: [address] [place] [address] Result Comment: Vj brown RN Canceled by ClinicianCorrected result: Previously reported as 94 % on 11/24/2024 at 7:44 AM EDT. Performed By: #### 2 4344-4 ####[facility] LABCLIA [id number] [address] [place] [address] [place] pH (BldV) Normal 7.32-7.42 [facility] Comment on above: Order Comment: Speci men Type: VENOUS BLOOD SPECIMENOrdering Facility: [facility] Address: [address] [place] [address] Result Comment: Vj brown RN Canceled by ClinicianCorrected result: Previously reported as 7.42 on 11/24/2024 at 7:44 AM EDT. Performed By: #### 2 4344-4 ####[facility] LABCLIA [id number] [address] [address] [place] pH adjusted to patient's actual temperature (BldV) Normal 7.32-7.42 [facility] Comment on above: Order Comment: Speci men Type: VENOUS BLOOD SPECIMENOrdering Facility: [facility] Address: [address] [place] [address] Result Comment: Vj brown RN Canceled by ClinicianCorrected result: Previously reported as 7.42 on 11/24/2024 at 7:44 AM EDT. Performed By: #### 2 4344-4 ####[facility] LABCLIA [id number] [address] [address] [place] Potassium [Moles/Vol] Normal 3.5-5.0 [facility] Comment on above: Order Comment: Speci men Type: VENOUS BLOOD SPECIMENOrdering Facility: [facility] Address: [address] [place] [address] Result Comment: Vj brown RN Canceled by ClinicianCorrected result: Previously reported as 4.4 mmol/L on 11/24/2024 at 7:44 AM EDT. Performed By: #### 2 4344-4 ####[facility] LABCLIA [id number] [address] [address] [place] Sodium [Moles/Vol] Normal 136-144 [facility] Comment on above: Order Comment: Speci men Type: VENOUS BLOOD SPECIMENOrdering Facility: [facility] Address: [address] [place] [address] Result Comment: Vj brown RN Canceled by ClinicianCorrected result: Previously reported as 134 mmol/L on 11/24/2024 at 7:44 AM EDT. Performed By: #### 2 4344-4 ####[facility] LABCLIA [id number] [address] [address] [place] TEMPERATURE, BODY Normal [facility] Comment on above: Order Comment: Speci men Type: VENOUS BLOOD SPECIMENOrdering Facility: [facility] Address: [address] [place] [address] Result Comment: Vj brown RN Canceled by ClinicianCorrected result: Previously reported as 36.9 C on 11/24/2024 at 7:44 AM EDT. Performed By: #### 2 4344-4 ####[facility] LABIA [id number] [place] [address] [place] Magnesium SerPl-nc 11-24 Magnesium [Mass/Vol] 2.2 mg/dL Normal 1.7-2.3 [facility] Comment on above: Order Comment: Speci men Type: BLOOD SPECIMENOrdering Facility: [facility] Address: [address] [place] [address] Performed By: #### 1 9123-9, 17085-3, 2777-1 ####[facility] [id number] [place] [address] [place] Phosphate SerPl-mCncon 11-24 Phosphate [Mass/Vol] 6.3 mg/dL High 2.7-4.8 [facility] Comment on above: Order Comment: Speci men Type: BLOOD SPECIMENOrdering Facility: [facility] Address: [address] [place] [address] Performed By: #### 1 9123-9, 90803-9, 2777-1 ####[facility] [id number] [place] [id number] [place] THERAPY NTon 11-24-2024 THERAPY NT Normal [facility] aPTT PPPon 11-24-2024 aPTT Coag (PPP) [Time] 32.9 s High 23.0-32.4 [facility] Comment on above: Order Comment: Speci men Type: BLOOD SPECIMENOrdering Facility: [facility] Address: [address] [place] [address] Performed By: #### 1 4979-9 ####[facility] LABIA [id number] [place] [address] [place] ARTERIAL BLOOD GASESon 11-23 Base excess Calc (Bld) [Moles/Vol] 7 mmol/L High 0-2 [facility] Comment on above: Order Comment: Speci men Type: ARTERIAL BLOOD SPECIMENOrdering Facility: [facility] Address: [address] [place] [address] Performed By: #### A LLBG ####[facility] LABIA [id number] [place] [address] [place] Body temperature 97.7 [degF] Normal [facility] Comment on above: Order Comment: Speci men Type: ARTERIAL BLOOD SPECIMENOrdering Facility: [facility] Address: [address] [place] [address] Performed By: #### A LLBG ####[facility] LABIA [id number] [place] [address] [place] Calcium.ionized (Bld) [Mass/Vol] 1.06 mmol/L Low 1.08-1.30 [facility] Comment on above: Order Comment: Speci men Type: ARTERIAL BLOOD SPECIMENOrdering Facility: [facility] Address: [address] [place] [address] Performed By: #### A LLBG ####[facility] LABCLIA [id number] [place] [address] [place] Calcium.ionized adjusted to pH 7.4 (BldA) [Moles/Vol] 1.11 mmol/L Normal 1.08-1.30 [facility] Comment on above: Order Comment: Speci men Type: ARTERIAL BLOOD SPECIMENOrdering Facility: [facility] Address: [address] [place] [address] Performed By: #### A LLBG ####[facility] LABCLIA [id number] [place] [address] [place] Carboxyhemoglobin (BldA) [Mass fraction] 0.5 % Normal 0.0-2.0 [facility] Comment on above: Order Comment: Speci men Type: ARTERIAL BLOOD SPECIMENOrdering Facility: [facility] Address: [address] [place] [address] Result Comment: Carb oxyhemoglobin Reference Range for Smokers: 2.0-8.0% Performed By: #### A LLBG ####[facility] LABCLIA [id number] [place] [address] [place] CO2 (Bld) [Partial pressure] 39 mm Hg Normal 36-46 [facility] Comment on above: Order Comment: Speci men Type: ARTERIAL BLOOD SPECIMENOrdering Facility: [facility] Address: [address] [place] [address] Performed By: #### A LLBG ####[facility] LABCLIA [id number] [place] [address] [place] CO2 adjusted to patient's actual temperature (Bld) [Partial pressure] 38 mmHg Normal 36-46 [facility] Comment on above: Order Comment: Speci men Type: ARTERIAL BLOOD SPECIMENOrdering Facility: [facility] Address: [address] [place] [address] Performed By: #### A LLBG ####[facility] LABCLIA [id number] [place] [address] [place] Glucose [Mass/Vol] 144 mg/dL High 60-105 [facility] Comment on above: Order Comment: Speci men Type: ARTERIAL BLOOD SPECIMENOrdering Facility: [facility] Address: [address] [place] [address] Performed By: #### A LLBG ####[facility] LABCLIA [id number] [place] [address] [place] HCO3 (Bld) [Moles/Vol] 30 mmol/L High 22-26 [facility] Comment on above: Order Comment: Speci men Type: ARTERIAL BLOOD SPECIMENOrdering Facility: [facility] Address: [address] [place] [address] Performed By: #### A LLBG ####[facility] LABCLIA [id number] [place] [address] [place] Hematocrit (Bld) [Volume fraction] 34.1 % Low 39.0-51.0 [facility] Comment on above: Order Comment: Speci men Type: ARTERIAL BLOOD SPECIMENOrdering Facility: [facility] Address: [address] [place] [address] Performed By: #### A LLBG ####[facility] LABIA [id number] [place] [address] [place] Hemoglobin (Bld) [Mass/Vol] 11.1 g/dL Low 13.0-17.0 [facility] Comment on above: Order Comment: Speci men Type: ARTERIAL BLOOD SPECIMENOrdering Facility: [facility] Address: [address] [place] [address] Performed By: #### A LLBG ####[facility] LABIA [id number] [place] [address] [place] Lactate [Moles/Vol] 1.5 mmol/L Normal 0.5-2.2 [facility] Comment on above: Order Comment: Speci men Type: ARTERIAL BLOOD SPECIMENOrdering Facility: [facility] Address: [address] [place] [address] Performed By: #### A LLBG ####[facility] LABIA [id number] [place] [address] [place] Methemoglobin (Bld) [Mass fraction] 1.2 % Normal 0.0-1.5 [facility] Comment on above: Order Comment: Speci men Type: ARTERIAL BLOOD SPECIMENOrdering Facility: [facility] Address: [address] [place] [id number] Performed By: #### A LLBG ####[facility] LABCLIA [id number] [address] [address] [place] O2 THERAPY RA=Room Air Normal [facility] Comment on above: Order Comment: Speci men Type: ARTERIAL BLOOD SPECIMENOrdering Facility: [facility] Address: [facility] [place] [address] Performed By: #### A LLBG ####[facility] LABCLIA [id number] [address] [address] [place] Oxygen (Bld) [Partial pressure] 105 mm Hg High 85-95 [facility] Comment on above: Order Comment: Speci men Type: ARTERIAL BLOOD SPECIMENOrdering Facility: [facility] Address: [address] [place] [address] Performed By: #### A LLBG ####[facility] LABCLIA [id number] [address] [address] [place] Oxygen adjusted to patient's actual temperature (Bld) [Partial pressure] 102 mmHg High 85-95 [facility] Comment on above: Order Comment: Speci men Type: ARTERIAL BLOOD SPECIMENOrdering Facility: [facility] Address: [address] [place] [id number] Performed By: #### A LLBG ####[facility] LABCLIA [id number] [place] [address] [place] Oxyhemoglobin (BldA) [Mass fraction] 95 % Normal 95-98 [facility] Comment on above: Order Comment: Speci men Type: ARTERIAL BLOOD SPECIMENOrdering Facility: [facility] Address: [address] [place], [place] [address] Performed By: #### A LLBG ####[facility] LABCLIA [id number] [address] [address] [place] pH (Bld) 7.50 [pH] High 7.35-7.45 [facility] Comment on above: Order Comment: Speci men Type: ARTERIAL BLOOD SPECIMENOrdering Facility: [facility] Address: [address] [place] [address] Performed By: #### A LLBG ####[facility] LABCLIA [id number] [address] [address] [place] pH adjusted to patient's actual temperature (Bld) 7.51 High 7.35-7.45 [facility] Comment on above: Order Comment: Speci men Type: ARTERIAL BLOOD SPECIMENOrdering Facility: [facility] Address: [address] [place] [address] Performed By: #### A LLBG ####[facility] LABCLIA [id number] [place] [address] [place] PO2 / FIO2 RATIO 500 mmHg Normal >300 [facility] Comment on above: Order Comment: Speci men Type: ARTERIAL BLOOD SPECIMENOrdering Facility: [facility] Address: [address] [place] [address] Performed By: #### A LLBG ####[facility] LABCLIA [id number] [place] [address] [place] Potassium [Moles/Vol] 3.8 mmol/L Normal 3.5-5.0 [facility] Comment on above: Order Comment: Speci men Type: ARTERIAL BLOOD SPECIMENOrdering Facility: [facility] Address: [address] [place] [address] Performed By: #### A LLBG ####[facility] LABCLIA [id number] [place] [id number] [place] Sodium [Moles/Vol] 133 mmol/L Low 136-144 [facility] Comment on above: Order Comment: Speci men Type: ARTERIAL BLOOD SPECIMENOrdering Facility: [facility] Address: [address] [place] [address] Performed By: #### A LLBG ####[facility] LABCLIA [id number] [address] [address] [place] BUN p dialysis SerPl-mCncon 11-23-2024 Urea nitrogen post dialysis [Mass/Vol] 34 mg/dL High 9 [facility] Comment on above: Order Comment: Speci men Type: BLOOD SPECIMENOrdering Facility: [facility] Address: [address] [place] [address] Performed By: #### 1 1064-3 ####[facility] LABCLIA [id number] [place] [address] [place] BUN pre dial SerPl-mCncon Urea nitrogen pre dialysis [Mass/Vol] 103 mg/dL High 02-13 [facility] Comment on above: Order Comment: Speci men Type: BLOOD SPECIMENOrdering Facility: [facility] Address: [address] [place] [address] Performed By: #### 1 1065-0, 3024-7, 3016-3 ####[facility] LABIA [id number] [place] [address] [place] Basic Metabolic Profile (BMP )on 11-23-2024 BUN Normal 4-19 [facility] Comment on above: Result Comment: Canc elled via OM: MD Ordered Performed By: #### L 500.2500, L100.0100 ####[facility] [address] [place], [address] BUN/CRE Normal 10-20 [facility] Comment on above: Result Comment: Canc elled via OM: MD Ordered Performed By: #### L 500.2500, L100.0100 ####[facility] [address] [place], [address] Calcium Normal 7.6-11.0 [facility] Comment on above: Result Comment: Canc elled via OM: MD Ordered Performed By: #### L 500.2500, L100.0100 ####[facility] [address] [place], [address] CL Normal 98-108 [facility] Comment on above: Result Comment: Canc elled via OM: MD Ordered Performed By: #### L 500.2500, L100.0100 ####[facility] [address] [place], [address] CO2 Normal 21.0-32.0 [facility] Comment on above: Result Comment: Canc elled via OM: MD Ordered Performed By: #### L 500.2500, L100.0100 ####[facility] [address] [place], [address] CREAT,SERUM Normal 0.70-1.20 [facility] Comment on above: Result Comment: Canc elled via OM: MD Ordered Performed By: #### L 500.2500, L100.0100 ####[facility] [address] [place], [address] eGFR Normal >60 [facility] Comment on above: Result Comment: Canc elled via OM: MD Ordered Performed By: #### L 500.2500, L100.0100 ####[facility] [address] [place], [address] GAP Normal 5-15 [facility] Comment on above: Result Comment: Canc elled via OM: MD Ordered Performed By: #### L 500.2500, L100.0100 ####[facility] [address] [place], [address] GLU Normal 70-99 [facility] Comment on above: Result Comment: Canc elled via OM: MD Ordered Performed By: #### L 500.2500, L100.0100 ####[facility] [address] [place], [address] Potassium Normal 3.3-5.1 [facility] Comment on above: Result Comment: Canc elled via OM: MD Ordered Performed By: #### L 500.2500, L100.0100 ####[facility] [address] [place], [address] Basic Metabolic Profile (BMP) Normal 133-145 [facility] Comment on above: Result Comment: Canc elled via OM: MD Ordered Performed By: #### L 500.2500, L100.0100 ####[facility] [address] [place], [address] CBC W/Diff, Automatedon 07-0 -2024 Absolute Neut Normal 2.0-7.7 [facility] Comment on above: Result Comment: Canc elled via OM: MD Ordered Performed By: #### L 500.2500, L100.0100 ####[facility] [address] [place], [address] HCT Normal 40-54 [facility] Comment on above: Result Comment: Canc elled via OM: MD Ordered Performed By: #### L 500.2500, L100.0100 ####[facility] [address] [place], [address] HGB Normal 13.0-16.5 [facility] Comment on above: Result Comment: Canc elled via OM: MD Ordered Performed By: #### L 500.2500, L100.0100 ####[facility] [address] [place], [address] MCH Normal 27.0-32.0 [facility] Comment on above: Result Comment: Canc elled via OM: MD Ordered Performed By: #### L 500.2500, L100.0100 ####[facility] [address] [place], [address] MCHC Normal 32-36 [facility] Comment on above: Result Comment: Canc elled via OM: MD Ordered Performed By: #### L 500.2500, L100.0100 ####[facility] [address] [place], [address] MCV Normal 80-94 [facility] Comment on above: Result Comment: Canc elled via OM: MD Ordered Performed By: #### L 500.2500, L100.0100 ####[facility] [address] [place], [address] NEUT% Normal 47-70 [facility] Comment on above: Result Comment: Canc elled via OM: MD Ordered Performed By: #### L 500.2500, L100.0100 ####[facility] [address] [place], [address] PLT Normal 150-450 [facility] Comment on above: Result Comment: Canc elled via OM: MD Ordered Performed By: #### L 500.2500, L100.0100 ####[facility] [address] [place], [address] RBC Normal 4.6-6.2 [facility] Comment on above: Result Comment: Canc elled via OM: MD Ordered Performed By: #### L 500.2500, L100.0100 ####[facility] [address] [place], [address] RDW CV Normal 11.6-14.6 [facility] Comment on above: Result Comment: Canc elled via OM: MD Ordered Performed By: #### L 500.2500, L100.0100 ####[facility] [address] [place], [address] RDW SD Normal 35.1-43.9 [facility] Comment on above: Result Comment: Canc elled via OM: MD Ordered Performed By: #### L 500.2500, L100.0100 ####[facility] [address] [place], [address] WBC Normal 4.4-11.0 [facility] Comment on above: Result Comment: Canc elled via OM: MD Ordered Performed By: #### L 500.2500, L100.0100 ####[facility] [address] [place], [address] CBC panel Auto (Bld)on 11-23 Erythrocyte distribution width (RBC) [Ratio] 16.1 % High 11.5-15.0 [facility] Comment on above: Order Comment: Speci men Type: BLOOD SPECIMENOrdering Facility: [facility] Address: [address] [place] [address] Performed By: #### 5 5454-3, 54822-3 ####[facility] LABIA [id number] [place] [address] [place] Hematocrit (Bld) [Volume fraction] 33.7 % Low 39.0-51.0 [facility] Comment on above: Order Comment: Speci men Type: BLOOD SPECIMENOrdering Facility: [facility] Address: [address] [place] [address] Performed By: #### 5 5454-3, 96517-7 ####[facility] LABIA [id number] [place] [address] [place] Hemoglobin (Bld) [Mass/Vol] 10.6 g/dL Low 13.0-17.0 [facility] Comment on above: Order Comment: Speci men Type: BLOOD SPECIMENOrdering Facility: [facility] Address: [address] [place] [address] Performed By: #### 5 5454-3, 14790-2 ####[facility] LABIA [id number] [place] [address] [place] MCH (RBC) [Entitic mass] 28.0 pg Normal 26.0-34.0 [facility] Comment on above: Order Comment: Speci men Type: BLOOD SPECIMENOrdering Facility: [facility] Address: [address] [place] [address] Performed By: #### 5 5454-3, 17331-1 ####[facility] LABCLIA [id number] [place] [address] [place] MCHC (RBC) [Mass/Vol] 31.5 g/dL Normal 30.5-36.0 [facility] Comment on above: Order Comment: Speci men Type: BLOOD SPECIMENOrdering Facility: [facility] Address: [address] [place] [address] Performed By: #### 5 5454-3, 83751-3 ####[facility] LABCLIA [id number] [place] [address] [place] MCV (RBC) [Entitic vol] 88.9 fL Normal 80.0-100.0 [facility] Comment on above: Order Comment: Speci men Type: BLOOD SPECIMENOrdering Facility: [facility] Address: [address] [place] [address] Performed By: #### 5 5454-3, 50548-8 ####[facility] LABCLIA [id number] [place] [address] [place] Nucleated RBC (Bld) [#/Vol] 10*3/uL Normal <0.01 [facility] Comment on above: Order Comment: Speci men Type: BLOOD SPECIMENOrdering Facility: [facility] Address: [address] [place] [address] Performed By: #### 5 5454-3, 97346-2 ####[facility] LABCLIA [id number] [place] [address] [place] Platelet mean volume (Bld) [Entitic vol] 11.8 fL Normal 9.0-12.7 [facility] Comment on above: Order Comment: Speci men Type: BLOOD SPECIMENOrdering Facility: [facility] Address: [address] [place] [address] Performed By: #### 5 5454-3, 72137-5 ####[facility] LABCLIA [id number] [address] [address] [place] Platelets (Bld) [#/Vol] 144 10*3/uL Low 150-400 [facility] Comment on above: Order Comment: Speci men Type: BLOOD SPECIMENOrdering Facility: [facility] Address: [address] [place] [address] Performed By: #### 5 5454-3, 23134-9 ####[facility] LABCLIA [id number] [place] [address] [place] RBC (Bld) [#/Vol] 3.79 10*6/uL Low 4.20-6.00 [facility] Comment on above: Order Comment: Speci men Type: BLOOD SPECIMENOrdering Facility: [facility] Address: [address] [place] [address] Performed By: #### 5 5454-3, 80973-7 ####[facility] LABCLIA [id number] [place] [address] [place] WBC (Bld) [#/Vol] 9.87 10*3/uL Normal 3.70-11.00 [facility] Comment on above: Order Comment: Speci men Type: BLOOD SPECIMENOrdering Facility: [facility] Address: [address] [place] [address] Performed By: #### 5 5454-3, 89365-1 ####[facility] LABCLIA [id number] [place] [address] [place] CONFIRM BLOOD TYPEon 025 ABO A Normal [facility] Comment on above: Order Comment: Speci men Type: BLOOD SPECIMENOrdering Facility: [facility] Address: [address] [place] [address] Performed By: #### C ONABO ####[facility] BLOOD BANKCLIA [id number] [address] [place] [address] [place] Rh Nom (Bld) Positive Normal [facility] Comment on above: Order Comment: Speci men Type: BLOOD SPECIMENOrdering Facility: [facility] Address: [address] [place] [address] Performed By: #### C ONABO ####[facility] BLOOD BANKCLIA [id number] [place] [address] [place] CONSULTon 11-23-2024 CONSULT Normal [facility] CONSULT Normal [facility] Comprehensive metabolic 2000 panelon 11-23-2024 Albumin [Mass/Vol] 3.7 g/dL Low 3.9-4.9 [facility] Comment on above: Order Comment: Speci men Type: BLOOD SPECIMENOrdering Facility: [facility] Address: [address] [place] [address] Performed By: #### 2 777-1, LIPNF, 6-4, 61347-9, 41196-8, 25350-3 ####[facility] LABCLIA [id number] [place] [address] [place] ALP [Catalytic activity/Vol] 68 U/L Normal 38-113 [facility] Comment on above: Order Comment: Speci men Type: BLOOD SPECIMENOrdering Facility: [facility] Address: [address] [place] [address] Performed By: #### 2 777-1, LIPNF, 6-4, 49721-1, 90445-2, 37650-1 ####[facility] LABCLIA [id number] [place] [address] [place] ALT [Catalytic activity/Vol] 43 U/L Normal 10-54 [facility] Comment on above: Order Comment: Speci men Type: BLOOD SPECIMENOrdering Facility: [facility] Address: [address] [place] [address] Performed By: #### 2 777-1, LIPNF, 2276-4, 47051-0, 62044-3, 64103-9 ####[facility] LABCLIA [id number] [facility] [address] [address] [place] Anion gap [Moles/Vol] 23 mmol/L High 8-15 [facility] Comment on above: Order Comment: Speci men Type: BLOOD SPECIMENOrdering Facility: [facility] Address: [address] [place] [address] Performed By: #### 2 777-1, LIPNF, 2276-4, 75409-4, 46844-7, 83314-6 ####[facility] LABCLIA [id number] [address] [address] [place] AST [Catalytic activity/Vol] 17 U/L Normal 14-40 [facility] Comment on above: Order Comment: Speci men Type: BLOOD SPECIMENOrdering Facility: [facility] Address: [address] [place] [address] Performed By: #### 2 777-1, LIPNF, 2276-4, 16008-0, 99440-8, 83709-0 ####[facility] LABIA [id number] [address] [address] [place] Bilirubin [Mass/Vol] 0.2 mg/dL Normal 0.2-1.3 [facility] Comment on above: Order Comment: Speci men Type: BLOOD SPECIMENOrdering Facility: [facility] Address: [address] [place], [place] [address] Performed By: #### 2 777-1, LIPNF, 2276-4, 47881-4, 96181-2, 23272-3 ####[facility] LABCLIA [id number] [address] [address] [place] Calcium [Mass/Vol] 9.3 mg/dL Normal 8.5-10.2 [facility] Comment on above: Order Comment: Speci men Type: BLOOD SPECIMENOrdering Facility: [facility] Address: [address] [place] [address] Performed By: #### 2 777-1, LIPNF, 2276-4, 30152-7, 85724-0, 95018-0 ####[facility] LABCLIA [id number] [address] [address] [place] Chloride [Moles/Vol] 86 mmol/L Low 98-107 [facility] Comment on above: Order Comment: Speci men Type: BLOOD SPECIMENOrdering Facility: [facility] Address: [address] [place] [address] Performed By: #### 2 777-1, LIPNF, 2276-4, 34321-3, 72622-9, 95902-9 ####[facility] LABIA [id number] [place] [address] [place] CO2 [Moles/Vol] 21 mmol/L Low 22-30 [facility] Comment on above: Order Comment: Speci men Type: BLOOD SPECIMENOrdering Facility: [facility] Address: [address] [place] [address] Performed By: #### 2 777-1, LIPNF, 2276-4, 44129-2, 57380-1, 23297-5 ####[facility] LABIA [id number] [place] [address] [place] Creatinine [Mass/Vol] 7.48 mg/dL High 0.73-1.22 [facility] Comment on above: Order Comment: Speci men Type: BLOOD SPECIMENOrdering Facility: [facility] Address: [address] [place] [address] Performed By: #### 2 777-1, LIPNF, 2276-4, 07401-3, 48705-8, 48475-9 ####[facility] LABCLIA [id number] [place] [address] [place] Creatinine and Glomerular filtration rate.predicted panel (S/P/Bld) 7 mL/min/1.73m??? Low >=60 [facility] Comment on above: Order Comment: Lesvia aleman Type: BLOOD SPECIMENOrdering Facility: [facility] Address: [address] [place] [address] Result Comment: Tessa mated Glomerular Filtration Rate [...] Performed By: #### 2 777-1, LIPNF, 2276-4, 41146-5, 15854-1, 92770-8 ####[facility] LABCLIA [id number] [address] [address] [place] Glucose [Mass/Vol] 215 mg/dL High 74-99 [facility] Comment on above: Order Comment: Lesvia aleman Type: BLOOD SPECIMENOrdering Facility: [facility] Address: [address] [place] [address] Result Comment: The [place] [employer] (ADA) provides guidance for cutoff [...] Standards of Medical Care in Diabetes 2016, [place] [employer]. Diabetes Care. 2016.39(Suppl 1). Performed By: #### 2 777-1, LIPNF, 2276-4, 30013-5, 48114-5, 43956-6 ####[facility] LABCLIA [id number] [address] [address] [place] Potassium [Moles/Vol] 5.4 mmol/L High 3.7-5.1 [facility] Comment on above: Order Comment: Speci men Type: BLOOD SPECIMENOrdering Facility: [facility] Address: [address] [place] [address] Performed By: #### 2 777-1, LIPNF, 2276-4, 30437-6, 73127-2, 26630-5 ####[facility] LABCLIA [id number] [facility] [place] [id number] [place] Protein [Mass/Vol] 6.9 g/dL Normal 6.3-8.0 [facility] Comment on above: Order Comment: Speci men Type: BLOOD SPECIMENOrdering Facility: [facility] Address: [address] [place] [address] Performed By: #### 2 777-1, LIPNF, 2276-4, 15204-6, 31689-3, 72180-8 ####[facility] LABCLIA [id number] [facility] [place] [address] [place] Sodium [Moles/Vol] 130 mmol/L Low 136-144 [facility] Comment on above: Order Comment: Speci men Type: BLOOD SPECIMENOrdering Facility: [facility] Address: [address] [place] [address] Performed By: #### 2 777-1, LIPNF, 2276-4, 74409-5, 22193-7, 81162-2 ####[facility] LABCLIA [id number] [facility] [place] [id number] [place] Urea nitrogen [Mass/Vol] 100 mg/dL High 9-24 [facility] Comment on above: Order Comment: Speci men Type: BLOOD SPECIMENOrdering Facility: [facility] Address: [address] [place] [address] Performed By: #### 2 777-1, LIPNF, 2276-4, 48383-5, 20991-2, 37894-4 ####[facility] LABCLIA [id number] [place] [address] [place] ECG COMPLETEon 11-23-2024 ECG COMPLETE Normal [facility] ECHO LIMITEDon 11-23-2024 ECHO LIMITED Normal [facility] ECHO LIMITED Normal [facility] Ferritin SerPl-mCncon 2024 Ferritin [Mass/Vol] 1473.0 ng/mL High 30.3-565.7 [facility] Comment on above: Order Comment: Speci men Type: BLOOD SPECIMENOrdering Facility: [facility] Address: [address] [place] [address] Performed By: #### 2 777-1, LIPNF, 2276-4, 32242-0, 06376-5, 03657-6 ####[facility] LABIA [id number] [place] [address] [place] Gas and Carbon monoxide pane l (BldV)on 11-23-2024 BASE DEFICIT, VENOUS -1 mmol/L Normal -2-0 [facility] Comment on above: Order Comment: Speci men Type: VENOUS BLOOD SPECIMENOrdering Facility: [facility] Address: [address] [place] [address] Performed By: #### 2 4344-4 ####[facility] LABIA [id number] [place] [address] [place] Body temperature 98.6 [degF] Normal [facility] Comment on above: Order Comment: Speci men Type: VENOUS BLOOD SPECIMENOrdering Facility: [facility] Address: [address] [place] [address] Performed By: #### 2 4344-4 ####[facility] LABIA [id number] [place] [address] [place] Calcium.ionized (Bld) [Mass/Vol] 1.14 mmol/L Normal 1.08-1.30 [facility] Comment on above: Order Comment: Speci men Type: VENOUS BLOOD SPECIMENOrdering Facility: [facility] Address: [address] [place] [address] Performed By: #### 2 4344-4 ####[facility] LABIA [id number] [place] [address] [place] Calcium.ionized adjusted to pH 7.4 (BldA) [Moles/Vol] 1.07 mmol/L Low 1.08-1.30 [facility] Comment on above: Order Comment: Speci men Type: VENOUS BLOOD SPECIMENOrdering Facility: [facility] Address: [address] [place] [address] Performed By: #### 2 4344-4 ####[facility] LABIA [id number] [place] [address] [place] Carboxyhemoglobin (BldV) [Mass fraction] 0.8 % Normal 0.0-2.0 [facility] Comment on above: Order Comment: Speci men Type: VENOUS BLOOD SPECIMENOrdering Facility: [facility] Address: [address] [place] [address] Result Comment: Carb oxyhemoglobin Reference Range for Smokers: 2.0-8.0% Performed By: #### 2 4344-4 ####[facility] LABIA [id number] [place] [address] [place] CO2 (BldV) [Partial pressure] 56 mm[Hg] High 42-55 [facility] Comment on above: Order Comment: Speci men Type: VENOUS BLOOD SPECIMENOrdering Facility: [facility] Address: [address] [place] [address] Performed By: #### 2 4344-4 ####[facility] LABIA [id number] [place] [address] [place] Glucose [Mass/Vol] 228 mg/dL High 60-105 [facility] Comment on above: Order Comment: Speci men Type: VENOUS BLOOD SPECIMENOrdering Facility: [facility] Address: [address] [place] [address] Performed By: #### 2 4344-4 ####[facility] LABCLIA [id number] [facility] [address] [address] [place] HCO3 (Bld) [Moles/Vol] 26 mmol/L Normal 24-28 [facility] Comment on above: Order Comment: Speci men Type: VENOUS BLOOD SPECIMENOrdering Facility: [facility] Address: [address] [place] [address] Performed By: #### 2 4344-4 ####[facility] LABCLIA [id number] [place] [address] [place] Hematocrit (Bld) [Volume fraction] 34.4 % Low 39.0-51.0 [facility] [facility] Comment on above: Order Comment: Speci men Type: VENOUS BLOOD SPECIMENOrdering Facility: [facility] Address: [address] [place] [address] Performed By: #### 2 4344-4 ####[facility] LABIA [id number] [place] [address] [place] Hemoglobin (Bld) [Mass/Vol] 11.2 g/dL Low 13.0-17.0 [facility] Comment on above: Order Comment: Speci men Type: VENOUS BLOOD SPECIMENOrdering Facility: [facility] Address: [address] [place] [address] Performed By: #### 2 4344-4 ####[facility] LABCLIA [id number] [place] [address] [place] Lactate [Moles/Vol] 0.9 mmol/L Normal 0.5-2.2 [facility] Comment on above: Order Comment: Speci men Type: VENOUS BLOOD SPECIMENOrdering Facility: [facility] Address: [address] [place] [address] Performed By: #### 2 4344-4 ####[facility] LABCLIA [id number] [place] [address] [place] Methemoglobin (Bld) [Mass fraction] 1.2 % Normal 0.0-1.5 [facility] Comment on above: Order Comment: Speci men Type: VENOUS BLOOD SPECIMENOrdering Facility: [facility] Address: [address] [id number] Performed By: #### 2 4344-4 ####[facility] LABCLIA [id number] [address] [address] [place] O2 THERAPY RA=Room Air Normal [facility] Comment on above: Order Comment: Speci men Type: VENOUS BLOOD SPECIMENOrdering Facility: [facility] Address: [address] [place] [address] Performed By: #### 2 4344-4 ####[facility] LABCLIA [id number] [address] [place] [address] [place] Oxygen (BldV) [Partial pressure] 24 mm[Hg] Low 35-45 [facility] Comment on above: Order Comment: Speci men Type: VENOUS BLOOD SPECIMENOrdering Facility: [facility] Address: [address] [place], [place] [address] Performed By: #### 2 4344-4 ####[facility] LABCLIA [id number] [address] [place] [address] [place] Oxygen saturation in Venous blood 28 % Low 60-85 [facility] Comment on above: Order Comment: Speci men Type: VENOUS BLOOD SPECIMENOrdering Facility: [facility] Address: [address] [id number] Performed By: #### 2 4344-4 ####[facility] LABCLIA [id number] [address] [address] [place] Oxyhemoglobin (BldV) [Mass fraction] 27 % Low 60-85 [facility] Comment on above: Order Comment: Speci men Type: VENOUS BLOOD SPECIMENOrdering Facility: [facility] Address: [address] [id number] Performed By: #### 2 4344-4 ####[facility] LABIA [id number] [place] [address] [place] pH (BldV) 7.29 [pH] Low 7.32-7.42 [facility] Comment on above: Order Comment: Speci men Type: VENOUS BLOOD SPECIMENOrdering Facility: [facility] Address: [address] [place] [address] Performed By: #### 2 4344-4 ####[facility] LABIA [id number] [place] [address] [place] Potassium [Moles/Vol] 5.3 mmol/L High 3.5-5.0 [facility] Comment on above: Order Comment: Speci men Type: VENOUS BLOOD SPECIMENOrdering Facility: [facility] Address: [address] [place] [address] Performed By: #### 2 4344-4 ####[facility] LABIA [id number] [place] [address] [place] Sodium [Moles/Vol] 128 mmol/L Low 136-144 [facility] Comment on above: Order Comment: Speci men Type: VENOUS BLOOD SPECIMENOrdering Facility: [facility] Address: [address] [place] [address] Performed By: #### 2 4344-4 ####[facility] [id number] [place] [address] [place] HBV surface Ab Ql (S)on HBV surface Ab Qn (S) 104.84 mIU/mL Normal [facility] Comment on above: Order Comment: Speci men Type: BLOOD SPECIMENOrdering Facility: [facility] Address: [address] [place] [address] Result Comment: <8 m IU/mL: No serological evidence of immunity to Hepatitis B Virus.>/= 8 to <12 mIU/mL: No serological evidence of immunity to Hepatitis B Virus.>/= 12 mIU/mL: Consistent with serological evidence of immunity to Hepatitis B Virus. Performed By: #### 5 195-3, 66529-0 ####[facility] LABIA [id number] [place] [address] [facility] HBV surface Ab Ser Qlon 07-0 HBV surface Ab Ql (S) Positive Normal [facility] Comment on above: Order Comment: Speci men Type: BLOOD SPECIMENOrdering Facility: [facility] Address: [address] [place] [address] Result Comment: Cons istent with serological evidence of immunity to Hepatitis B Virus. Performed By: #### 5 195-3, 62812-8 ####[facility] [id number] [address] HBV surface Ag Ser Qlon HBV surface Ag Ql (S) Negative Normal Negative [facility] Comment on above: Order Comment: Speci men Type: BLOOD SPECIMENOrdering Facility: [facility] Address: [address] [place] [address] Performed By: #### 5 195-3, ####[facility] [id number] [address] OF [place] HISTORY PHYSICALon HISTORY PHYSICAL Normal [facility] HbA1c (Bld)on 11-23-2024 Average glucose Estimated from glycated hemoglobin (Bld) [Mass/Vol] 154 mg/dL Normal [facility] Comment on above: Order Comment: [facility] Type: BLOOD SPECIMENOrdering Facility: [facility] Address: [address] [place] [address] Result Comment: eAG: (Estimated average glucose) is a calculated value from HgbA1c and is sales account representative of the average blood glucose level in the last 2-3 month period. Performed By: #### 5 5454-3, 74915-5 ####[facility] LABIA [id number] [place] [address] [place] HbA1c (Bld) [Mass fraction] 7.0 % High 4.3-5.6 [facility] Comment on above: Order Comment: Ruddyi men Type: BLOOD SPECIMENOrdering Facility: [facility] Address: [address] [place] [address] Result Comment: Amsulaiman ican Diabetes Association guidelines indicate that patients with HgbA1c in the range 5.7-6.4% are at increased risk for development of diabetes, and intervention by lifestyle modification may be beneficial. HgbA1c greater or equal to 6.5% is considered diagnostic of diabetes. Performed By: #### 5 5454-3, 88020-7 ####[facility] LABCLIA [id number] [address] OF [place] Iron and Iron binding capaci ty panelon 11-23-2024 Iron [Mass/Vol] 105 ug/dL Normal 41-186 [facility] Comment on above: Order Comment: Ruddyi men Type: BLOOD SPECIMENOrdering Facility: [facility] Address: [address] [place] [address] Performed By: #### 2 777-1, LIPNF, 2276-4, 61885-6, 66931-1, 43945-6 ####[facility] LABCLIA [id number] [address] [place] Iron binding capacity [Mass/Vol] 179 ug/dL Low 232-386 [facility] Comment on above: Order Comment: Speci men Type: BLOOD SPECIMENOrdering Facility: [facility] Address: [address] [place] [address] Performed By: #### 2 777-1, LIPNF, 2276-4, 57019-5, 57682-0, 58820-7 ####[facility] LABCLIA [id number] [place] [address] [place] Iron/TIBC [Molar ratio] 58.7 % High 15.0-57.0 C [facility] Comment on above: Order Comment: Speci men Type: BLOOD SPECIMENOrdering Facility: [facility] Address: [address] [place] [address] Performed By: #### 2 777-1, LIPNF, 2276-4, 68528-2, 55206-7, 82776-6 ####[facility] LABCLIA [id number] [facility] [id number], [place] [address] [place] LIPID PANEL, NONFASTINGon Cholesterol [Mass/Vol] 113 mg/dL Normal <200 [facility] Comment on above: Order Comment: Speci men Type: BLOOD SPECIMENOrdering Facility: [facility] Address: [address] [place] [address] Result Comment: <200 mg/dL, Desirable 200-239 mg/dL, Borderline high>239 mg/dL, High Performed By: #### 2 777-1, LIPNF, 6-4, 88868-3, 95198-9, 53940-0 ####[facility] LABCLIA [id number] [address] [place] [address] [place] HDL CHOLESTEROL, NF 48 mg/dL Normal >39 [facility] Comment on above: Order Comment: Speci men Type: BLOOD SPECIMENOrdering Facility: [facility] Address: [address] [place] [address] Result Comment: 40-5 9 mg/dL, Acceptable>59 mg/dL, High: Negative risk factor for coronary heart disease<40 mg/dL, Low: Positive risk factor for coronary heart disease Performed By: #### 2 777-1, LIPNF, 2276-4, 37889-1, 39186-6, 56604-8 ####[facility] LABCLIA [id number] [address] [place] [address] [place] LDL CHOLESTEROL CALCULATED, NF 56 mg/dL Normal <100 [facility] Comment on above: Order Comment: Speci men Type: BLOOD SPECIMENOrdering Facility: [facility] Address: [address] [place] [address] Result Comment: <100 mg/dL, Optimal 100-129 mg/dL, Near optimal/above optimal 130-159 mg/dL, Borderline high 160-189 mg/dL, High>189 mg/dL, Very highSecondary prevention optimal LDL Cholesterol levels are recommended to be <70 mg/dLLDL cholesterol is calculated using the Nice-NIH equation. Performed By: #### 2 777-1, LIPNF, 6-4, 41755-0, 28103-2, 10922-6 ####[facility] LABCLIA [id number] [address] [address] [place] LDL/HDL RATIO, NF 1.17 mg/dL Normal <2.54 [facility] Comment on above: Order Comment: Speci men Type: BLOOD SPECIMENOrdering Facility: [facility] Address: [address] [place] [address] Result Comment: Refe rence:1. National Cholesterol Education Program ATP III Guideline At-A-Glance Quick Desk Reference: National Heart, Lung, and Blood [place]. National Institutes of Health. 2001: NIH Publication No. 01-3305.2. An International Atherosclerosis Society position paper: global recommendations for the management of dyslipidemia: executive summary, Atherosclerosis. 2014: 232(2):410-413. Performed By: #### 2 777-1, LIPNF, 2275-4, 37707-3, 67867-0, 46618-3 ####[facility] LABIA [id number] [address] [address] [place] NON HDL CHOL, NF 65 mg/dL Normal <130 [facility] Comment on above: Order Comment: Lesvia aleman Type: BLOOD SPECIMENOrdering Facility: [facility] Address: [address] [place] [address] Result Comment: <130 mg/dL, Optimal 130-159 mg/dL, Near optimal/above optimal 160-189 mg/dL, Borderline high 190-219 mg/dL, High>219 mg/dL, Very highSecondary prevention optimal non HDL Cholesterol levels are recommended to be <100 mg/dL Performed By: #### 2 777-1, LIPNF, 2276-4, 60017-2, 10784-4, 71957-2 ####[facility] LABCLIA [id number] [address] [address] [place] T CHOL/HDL RATIO NF 2.35 mg/dL Normal <5.10 [facility] Comment on above: Order Comment: Speci men Type: BLOOD SPECIMENOrdering Facility: [facility] Address: [address] [place], [place] [address] Performed By: #### 2 777-1, LIPNF, 6-4, 75672-0, 98522-0, 21936-2 ####[facility] LABCLIA [id number] [address] [address] [place] TRIGLYCERIDES, NF 33 mg/dL Normal <150 [facility] Comment on above: Order Comment: Speci men Type: BLOOD SPECIMENOrdering Facility: [facility] Address: [address] [place], [place] [address] Result Comment: <150 mg/dL, Normal 150-199 mg/dL, Borderline high 200-499 mg/dL, High>499 mg/dL, Very high Performed By: #### 2 777-1, LIPNF, 6-4, 86760-5, 96124-9, 30837-2 ####[facility] LABCLIA [id number] [address] [address] [place] VLDL CHOLESTEROL, NF 5 mg/dL Normal <30 [facility] Comment on above: Order Comment: Speci men Type: BLOOD SPECIMENOrdering Facility: [facility] Address: [address] [place] [address] Performed By: #### 2 777-1, LIPNF, 6-4, 50366-5, 63840-4, 78266-5 ####[facility] LABCLIA [id number] [address] [address] [place] Magnesium SerPl-mCncon 11-23 Magnesium [Mass/Vol] 2.7 mg/dL High 1.7-2.3 [facility] Comment on above: Order Comment: Speci men Type: BLOOD SPECIMENOrdering Facility: [facility] Address: [address] [place] [address] Performed By: #### 2 777-1, LIPNF, 2276-4, 36748-6, 47613-0, 42711-7 ####[facility] LABCLIA [id number] [place] [address] [place] PT panel Coag (PPP)on 2024 INR Coag (PPP) [Relative time] 1.2 {INR} Normal 0.9-1.3 [facility] Comment on above: Order Comment: Speclena aleman Type: BLOOD SPECIMENOrdering Facility: [facility] Address: [address] [place] [address] Result Comment: Ching min K Antagonist (VKA) Therapeutic Range: INR 2 to 3 (Target INR of 2.5)Note: For patients treated with VKA drugs, such as warfarin, the [place] [employer] 2012 Guideline recommends [...] to 3.5 (target INR of 3).Ana Laura GH, et al. Chest 2012, 141:7S-47SNishgualberto RA, et al. JACC 2017, 70: 252-289 Performed By: #### 3 4528-0, 63636-8 ####[facility] LABCLIA [id number] [place] [address] [place] PT Coag (PPP) [Time] 12.6 s Normal 9.7-13.0 [facility] Comment on above: Order Comment: Speci men Type: BLOOD SPECIMENOrdering Facility: [facility] Address: [address] [place] [address] Performed By: #### 3 4528-0, 42797-9 ####[facility] LABCLIA [id number] [place] [address] [place] Phosphate SerPl-mCncon 11-23 Phosphate [Mass/Vol] 10.4 mg/dL High 2.7-4.8 [facility] Comment on above: Order Comment: Speci men Type: BLOOD SPECIMENOrdering Facility: [facility] Address: [address] [place] [address] Performed By: #### 2 777-1, LIPNF, 2276-4, 34796-0, 59167-2, 43521-6 ####[facility] LABCLIA [id number] [place] [address] [place] STAPHYLOCOCCUS AUREUS AND MR SA SCREEN, PCR, NASALon 11-23-2024 S. aureus and MRSA panel EZEKIEL+probe (Nose) Not detected Normal Not Detected [facility] Comment on above: Order Comment: Speci men Type: SWABOrdering Facility: [facility] Address: [address] [place] [address] Performed By: #### S APCR ####[facility] LABCLIA [id number] [place] [address] [place] T4 Free SerPl-mCncon 025 Free T4 [Mass/Vol] 1.0 ng/dL Normal 0.9-1.7 [facility] Comment on above: Order Comment: Speci men Type: BLOOD SPECIMENOrdering Facility: [facility] Address: [address] [place] [address] Performed By: #### 1 1065-0, 3024-7, 3016-3 ####[facility] LABCLIA [id number] [place] [address] [place] THERAPY NTon 11-23-2024 THERAPY NT Normal [facility] TSH SerPl-aCncon 11-23-2024 TSH Qn 1.490 m[IU]/L Normal 0.270-4.200 [facility] Comment on above: Order Comment: Speci men Type: BLOOD SPECIMENOrdering Facility: [facility] Address: [address] [place] [address] Performed By: #### 1 1065-0, 3024-7, 3016-3 ####[facility] LABCLIA [id number] [place] [address] [place] TYPE + SCREENon 11-23-2024 ABO A Normal [facility] Comment on above: Order Comment: Speci men Type: BLOOD SPECIMENOrdering Facility: [facility] Address: [address] [place] [address] Performed By: #### T SCR ####[facility] BANKCLIA [id number] [place] [address] [place] Rh Nom (Bld) Positive Normal [facility] Comment on above: Order Comment: Speci men Type: BLOOD SPECIMENOrdering Facility: [facility] Address: [address] [place] [address] Performed By: #### T SCR ####[facility] BLOOD BANKCLIA [id number] [place] [address] [place] TYPE AND SCREEN EXPIRATION 11/26/2024 23:59 Normal [facility] Comment on above: Order Comment: Speci men Type: BLOOD SPECIMENOrdering Facility: [facility] Address: [address] [place] [address] Performed By: #### T SCR ####[facility] BLOOD BANKCLIA [id number] [place] [address] [place] Urea nitrogen post dialysis [Mass/Vol]on 11-23-2024 UREA REDUCTION RATIO WITH BUNPR 67 % Normal [facility] Comment on above: Order Comment: Speci men Type: BLOOD SPECIMENOrdering Facility: [facility] Address: [address] [place] [address] Performed By: #### 1 1064-3 ####[facility] LABIA [id number] [place] [address] [place] aPTT PPPon 11-23-2024 aPTT Coag (PPP) [Time] 33.5 s High 23.0-32.4 [facility] Comment on above: Order Comment: Speci men Type: BLOOD SPECIMENOrdering Facility: [facility] Address: [address] [place] [address] Performed By: #### 3 4528-0, 53323-2 ####[facility] [id number] [address] [place] 12 Lead EKGon 11-22-2024 12 Lead EKG Normal [facility] 12 Lead EKG Normal [facility] Absolute lymphocyte countOrd ered By: Lele Desai on 11-22-2024 Lymphocytes Auto (Unsp spec) [#/Vol] 1.93 10*3/uL 0.83-4.51 [facility] Activated partial thrombopla stin time (aPTT) in platelet poor plasma by coagulation aOrdered By: Lele Desai on 11-22-2024 aPTT Coag (PPP) [Time] 34.7 s 24.1-36.2 [facility] Anion gap in Serum or Plasma Ordered By: Lele Desai on 11-22-2024 Anion gap [Moles/Vol] 17 mmol/L High 5-15 [facility] Automated lymphocyte count a s percentage of total leukocytesOrdered By: Lele Desai on 11-22-2024 Lymphocytes/100 WBC Auto (Unsp spec) 19.3 % 19-41 [facility] BUN/creatinine ratioOrdered By: Lele Desai on 11-22-2024 Urea nitrogen/Creatinine [Mass ratio] 12.4 mg/mg - [facility] Basic Metabolic Profile (BMP )on 11-22-2024 BUN/CRE 12.4 RATIO Normal 03-11 [facility] Comment on above: Performed By: #### L 300.4310, L300.3900, L501.4021, L100.0100, L501.5200, L500.2500, L503.7505 ####[facility] [address] [place], [address] Calcium [Mass/Vol] 8.8 mg/dL Normal 7.6-11.0 [facility] Comment on above: Performed By: #### L 300.4310, L300.3900, L501.4021, L100.0100, L501.5200, L500.2500, L503.7505 ####[facility] [address] [place], [address] Chloride [Moles/Vol] 88 mmol/L Low 98-108 [facility] Comment on above: Performed By: #### L 300.4310, L300.3900, L501.4021, L100.0100, L501.5200, L500.2500, L503.7505 ####[facility] [address] [place], [address] CO2 [Moles/Vol] 25.3 mmol/L Normal 21.0-32.0 [facility] Comment on above: Performed By: #### L 300.4310, L300.3900, L501.4021, L100.0100, L501.5200, L500.2500, L503.7505 ####[facility] [address] [place], [address] Creatinine [Mass/Vol] 6.55 mg/dL High 0.70-1.20 [facility] Comment on above: Performed By: #### L 300.4310, L300.3900, L501.4021, L100.0100, L501.5200, L500.2500, L503.7505 ####[facility] [address] [place], [address] ECRCL 8.98 ml/min Invalid Interpretation Code 50-250 [facility] Comment on above: Performed By: #### L 300.4310, L300.3900, L501.4021, L100.0100, L501.5200, L500.2500, L503.7505 ####[facility] [address] [place], [address] GAP 17 High 5-15 [facility] Comment on above: Performed By: #### L 300.4310, L300.3900, L501.4021, L100.0100, L501.5200, L500.2500, L503.7505 ####[facility] [address] [place], [place], [address](834) GFR/1.73 sq M.predicted among non-blacks MDRD (S/P/Bld) [Vol rate/Area] 8 mL/min/{1.73_m2} Low >60 [facility] Comment on above: Result Comment: mL/m in/1.73m2 CKD-EPI Creatinine Equation (2020) Performed By: #### L 300.4310, L300.3900, L501.4021, L100.0100, L501.5200, L500.2500, L503.7505 ####[facility] [address] [place], [address] Glucose [Mass/Vol] 249 mg/dL High 70-99 [facility] Comment on above: Performed By: #### L 300.4310, L300.3900, L501.4021, L100.0100, L501.5200, L500.2500, L503.7505 ####[facility] [address] [place], [address] Potassium [Moles/Vol] 5.2 mmol/L High 3.3-5.1 [facility] Comment on above: Performed By: #### L 300.4310, L300.3900, L501.4021, L100.0100, L501.5200, L500.2500, L503.7505 ####[facility] [address] [place], [address] Sodium [Moles/Vol] 130 mmol/L Low 133-145 [facility] Comment on above: Performed By: #### L 300.4310, L300.3900, L501.4021, L100.0100, L501.5200, L500.2500, L503.7505 ####[facility] [address] [place], [address] Urea nitrogen [Mass/Vol] 81 mg/dL High 4-19 [facility] Comment on above: Performed By: #### L 300.4310, L300.3900, L501.4021, L100.0100, L501.5200, L500.2500, L503.7505 ####[facility] [address] [place], [address] Basophil percentageOrdered B y: Lele Chadwick on 11-22-2024 Basophils/100 WBC (Bld) 0.5 % 0-1 [facility] CBC W/Diff, Automatedon 07-0 Absolute Lymph 1.93 X10 3/uL Normal 0.83-4.51 [facility] Comment on above: Performed By: #### L 300.4310, L300.3900, L501.4021, L100.0100, L501.5200, L500.2500, L503.7505 ####[facility] [address] [place], [address] Absolute Neut 6.8 X10 3/uL Normal 2.0-7.7 [facility] Comment on above: Performed By: #### L 300.4310, L300.3900, L501.4021, L100.0100, L501.5200, L500.2500, L503.7505 ####[facility] [address] [place], [address] Basophils/100 WBC (Bld) 0.5 % Normal 0-1 [facility] Comment on above: Performed By: #### L 300.4310, L300.3900, L501.4021, L100.0100, L501.5200, L500.2500, L503.7505 ####[facility] [address] [place], [address] Eosinophils/100 WBC (Bld) 2.6 % Normal 0-5 [facility] Comment on above: Performed By: #### L 300.4310, L300.3900, L501.4021, L100.0100, L501.5200, L500.2500, L503.7505 ####[facility] [address] [place], [address] Erythrocyte distribution width (RBC) [Ratio] 16.4 % High 11.6-14.6 [facility] Comment on above: Performed By: #### L 300.4310, L300.3900, L501.4021, L100.0100, L501.5200, L500.2500, L503.7505 ####[facility] [address] [place], [address] Hematocrit (Bld) [Volume fraction] 34.9 % Low 40-54 [facility] Comment on above: Performed By: #### L 300.4310, L300.3900, L501.4021, L100.0100, L501.5200, L500.2500, L503.7505 ####[facility] [address] [place], [address] Hemoglobin (Bld) [Mass/Vol] 10.9 g/dL Low 13.0-16.5 [facility] Comment on above: Performed By: #### L 300.4310, L300.3900, L501.4021, L100.0100, L501.5200, L500.2500, L503.7505 ####[facility] [address] [place], [address] IG% 0.500 Normal 0.0-0.9 [facility] Comment on above: Result Comment: IG% - Immature Granulocytes (promyelocytes, myelocytes andmetamyelocytes) > 1% indicates that a LEFT SHIFT is Present. Performed By: #### L 300.4310, L300.3900, L501.4021, L100.0100, L501.5200, L500.2500, L503.7505 ####[facility] [address] [place], [address] Lymphocytes/100 WBC (Bld) 19.3 % Normal 19-41 [facility] Comment on above: Performed By: #### L 300.4310, L300.3900, L501.4021, L100.0100, L501.5200, L500.2500, L503.7505 ####[facility] [address] [place], [address] MCH (RBC) [Entitic mass] 28.2 pg Normal 27.0-32.0 [facility] Comment on above: Performed By: #### L 300.4310, L300.3900, L501.4021, L100.0100, L501.5200, L500.2500, L503.7505 ####[facility] [address] [place], [address] MCHC (RBC) [Mass/Vol] 31.2 g/dL Low 32-36 [facility] Comment on above: Performed By: #### L 300.4310, L300.3900, L501.4021, L100.0100, L501.5200, L500.2500, L503.7505 ####[facility] [address] [place], [address] MCV (RBC) [Entitic vol] 90.2 fL Normal 80-94 [facility] Comment on above: Performed By: #### L 300.4310, L300.3900, L501.4021, L100.0100, L501.5200, L500.2500, L503.7505 ####[facility] [address] [place], [address] Monocytes/100 WBC (Bld) 8.8 % Normal 0-10 [facility] Comment on above: Performed By: #### L 300.4310, L300.3900, L501.4021, L100.0100, L501.5200, L500.2500, L503.7505 ####[facility] [address] [place], [address] Neutrophils/100 WBC (Bld) 68.3 % Normal 47-70 [facility] Comment on above: Performed By: #### L 300.4310, L300.3900, L501.4021, L100.0100, L501.5200, L500.2500, L503.7505 ####[facility] [address] [place], [address] Nucleated RBC (Bld) [#/Vol] 0 10*3/uL Normal 0-5 [facility] Comment on above: Performed By: #### L 300.4310, L300.3900, L501.4021, L100.0100, L501.5200, L500.2500, L503.7505 ####[facility] [address] [place], [address] Platelet mean volume (Bld) [Entitic vol] 11.7 fL Normal 6.2-12.0 [facility] Comment on above: Performed By: #### L 300.4310, L300.3900, L501.4021, L100.0100, L501.5200, L500.2500, L503.7505 ####[facility] [address] [facility] [address] Platelets (Bld) [#/Vol] 161 10*3/uL Normal 150-450 [facility] Comment on above: Performed By: #### L 300.4310, L300.3900, L501.4021, L100.0100, L501.5200, L500.2500, L503.7505 ####[facility] [address] [place], [address] RBC (Bld) [#/Vol] 3.87 10*6/uL Low 4.6-6.2 [facility] Comment on above: Performed By: #### L 300.4310, L300.3900, L501.4021, L100.0100, L501.5200, L500.2500, L503.7505 ####[facility] [address] [place], [address] RDW SD 53.6 fl High 35.1-43.9 [facility] Comment on above: Performed By: #### L 300.4310, L300.3900, L501.4021, L100.0100, L501.5200, L500.2500, L503.7505 ####[facility] [address] [place], [address] WBC (Bld) [#/Vol] 10.0 10*3/uL Normal 4.4-11.0 [facility] Comment on above: Performed By: #### L 300.4310, L300.3900, L501.4021, L100.0100, L501.5200, L500.2500, L503.7505 ####[facility] [address] [place], [address] Carbon dioxide, total [Moles /volume] in Central venous bloodOrdered By: Lele Desai on 11-22-2024 CO2 [Moles/Vol] 25.3 mmol/L 21.0-32.0 [facility] Chest 1 View (Portable)on Chest 1 View (Portable) Normal [facility] Chloride assayOrdered By: Sulaiman Desai on 11-22-2024 Chloride [Moles/Vol] 88 mmol/L Low 98-108 [facility] Emergency Department Summary on 11-22-2024 Emergency Department Summary Normal [facility] Eosinophil percentageOrdered By: Lele Desai on 11-22-2024 Eosinophils/100 WBC (Bld) 2.6 % 0-5 [facility] Erythrocyte distribution wid th ratioOrdered By: Lele Desai on 11-22-2024 Erythrocyte distribution width (RBC) [Ratio] 16.4 % High 11.6-14.6 [facility] Erythrocyte distribution wid th standard deviationOrdered By: Lele Desai on 11-22-2024 Erythrocyte distribution width (RBC) [Ratio] 53.6 fl High 35.1-43.9 [facility] Glomerular filtration rate ( GFR) estimation/1.73 sq m using serum, plasma, or whole bOrdered By: Lele Desai on 11-22-2024 GFR/1.73 sq M.predicted among non-blacks MDRD (S/P/Bld) [Vol rate/Area] 8 mL/min/{1.73_m2} Low >60 [facility] Hematocrit Auto (Bld) [Volum e fraction]Ordered By: Lele Desai on 11-22-2024 Hematocrit (Bld) [Volume fraction] 34.9 % Low 40-54 [facility] Hemoglobin measurementOrdere d By: Lele Desai on 11-22-2024 Hemoglobin (Bld) [Mass/Vol] 10.9 g/dL Low 13.0-16.5 [facility] Immature granulocytes/100 WB C Auto (Bld)Ordered By: Lele Desai on 11-22-2024 Immature granulocytes/100 WBC (Bld) 0.500 % 0.0-0.9 [facility] L499.0042on 11-22-2024 Trop T High Sen 127 ng/L Invalid Interpretation Code <=22 [facility] Comment on above: Result Comment: Jack small Result(s) Called at: 11-22-24 11:39 TO TAO by:??TYLER MENDENHALL Results read back by same. Performed By: #### L 499.0042 ####[facility] [address] [place], [address] L499.0043on 11-22-2024 Trop T High Sen Normal <=22 [facility] Comment on above: Result Comment: Solomon eason via OM: Ordered Performed By: #### L 499.0043 ####[facility] [address] [place], [address] L501.4021on 11-22-2024 Trop T High Sen 129 ng/L Invalid Interpretation Code <=22 [facility] Comment on above: Result Comment: Crit ical Result(s) Called at: 11/22/2024-10:17 by: Keily to Macey Steinberg.??Results read back by same. Performed By: #### L 300.4310, L300.3900, L501.4021, L100.0100, L501.5200, L500.2500, L503.7505 ####[facility] [address] [place], [address] L503.7505on 11-22-2024 Natriuretic peptide B (Bld) [Mass/Vol] 74513 pg/mL High <=1800 [facility] Comment on above: Result Comment: Hear t Failure Unlikely: < 300 pg/mLHeart Failure Likely< 50 Years: > 450 pg/mL50-75 Years: > 900 pg/mL>75 Years: > 1800 pg/mL Performed By: #### L 300.4310, L300.3900, L501.4021, L100.0100, L501.5200, L500.2500, L503.7505 ####[facility] [address] [place], [address] MCV (mean corpuscular volume ) determinationOrdered By: Lele Desai on 11-22-2024 MCV (RBC) [Entitic vol] 90.2 fL 80-94 [facility] Magnesiumon 11-22-2024 Magnesium [Mass/Vol] 2.6 mg/dL High 1.5-2.2 [facility] Comment on above: Performed By: #### L 300.4310, L300.3900, L501.4021, L100.0100, L501.5200, L500.2500, L503.7505 ####[facility] [address] [place], [place], [id number] Magnesium measurement (mass/ volume)Ordered By: Lele Desai on 11-22-2024 Magnesium (Unsp spec) [Mass/Vol] 2.6 mg/dL High 1.5-2.2 [facility] Mean corpuscular hemoglobin (MCH) determinationOrdered By: Lele Desai on 11-22-2024 MCH (RBC) [Entitic mass] 28.2 pg 27.0-32.0 [facility] Monocyte percentageOrdered B y: Lele Desai on 11-22-2024 Monocytes/100 WBC (Bld) 8.8 % 0-10 [facility] Natriuretic peptide.B prohor angie N-Terminal [Mass/volume] in Serum or PlasmaOrdered By: Lele Desai on 11-22-2024 Natriuretic peptide.B prohormone N-Terminal [Mass/Vol] 48827 pg/mL High <1800 [facility] Neutrophil percentageOrdered By: Lele Desai on 11-22-2024 Neutrophils/100 WBC (Bld) 68.3 % 47-70 [facility] Partial Thromboplast Timeon 11-22-2024 aPTT Coag (Bld) [Time] 34.7 s Normal 24.1-36.2 [facility] Comment on above: Performed By: #### L 300.4310, L300.3900, L501.4021, L100.0100, L501.5200, L500.2500, L503.7505 ####[facility] [address] [place], [place], [id number] Platelet countOrdered By: Sulaiman Desai on 11-22-2024 Platelets (Bld) [#/Vol] 161 10*3/uL 150-450 [facility] Potassium measurement (mass/ volume)Ordered By: Lele Desai on 11-22-2024 Potassium (Unsp spec) [Mass/Vol] 5.2 mmol/L High 3.3-5.1 [facility] Prothrombin Time w/INRon INR Coag (PPP) [Relative time] 1.3 {INR} Normal [facility] Comment on above: Performed By: #### L 300.4310, L300.3900, L501.4021, L100.0100, L501.5200, L500.2500, L503.7505 ####[facility] [address] [place], [place], [id number] PT Coag (PPP) [Time] 16.5 s High 11.7-14.9 [facility] Comment on above: Performed By: #### L 300.4310, L300.3900, L501.4021, L100.0100, L501.5200, L500.2500, L503.7505 ####[facility] [address] [place], [place], [id number] Prothrombin timeOrdered By: Lele Desai on 11-22-2024 PT Coag (PPP) [Time] 16.5 s High 11.7-14.9 [facility] RBC Auto (Bld) [#/Vol]Ordere d By: Lele Desai on 11-22-2024 RBC (Bld) [#/Vol] 3.87 10*6/uL Low 4.6-6.2 [facility] Serum creatinine measurement (mass/volume)Ordered By: Lele Desai on 11-22-2024 Creatinine [Mass/Vol] 6.55 mg/dL High 0.70-1.20 [facility] Serum glucose measurement (m ass/volume)Ordered By: Lele Desai on 11-22-2024 Glucose [Mass/Vol] 249 mg/dL High 70-99 [facility] Serum or plasma calcium lilli urement (mass/volume)Ordered By: Lele Desai on 11-22-2024 Calcium [Mass/Vol] 8.8 mg/dL 7.6-11.0 [facility] Serum or plasma urea nitroge n measurement (mass/volume)Ordered By: Lele Desai on 11-22-2024 Urea nitrogen [Mass/Vol] 81 mg/dL High 4-19 [facility] Sodium levelOrdered By: Lele Desai on 11-22-2024 Sodium [Moles/Vol] 130 mmol/L Low 133-145 [facility] Troponin T.cardiac [Mass/vol ume] in Serum or Plasma by High sensitivity methodOrdered By: Lele Desai on 11-22-2024 Troponin T.cardiac High sensitivity method [Mass/Vol] 127 ng/L High <22 [facility] Troponin T.cardiac High sensitivity method [Mass/Vol] 129 ng/L High <22 [facility] White blood cell (WBC) count Ordered By: Lele Desai on 11-22-2024 WBC (Bld) [#/Vol] 10.0 10*3/uL 4.4-11.0 [facility] Calculated very low density lipoprotein (VLDL) cholesterol measurementOrdered By: Nando Wiggins on 11-12-2024 Calculated very low density lipoprotein (VLDL) cholesterol measurement 5 mg/dL 5-40 [facility] LDL calc ser/plasOrdered By: Nando Wiggins on 11-12-2024 Cholesterol in LDL [Mass/Vol] 53 mg/dL [facility] Serum or plasma cholesterol in HDL measurement (mass/volume)Ordered By: Nando Wiggins on 11-12-2024 Cholesterol in HDL [Mass/Vol] 54 mg/dL >40 [facility] Serum or plasma cholesterol measurement (mass/volume)Ordered By: Nando Wiggins on 11-12-2024 Cholesterol [Mass/Vol] 112 mg/dL <201 [facility] Brain/Head without Contrasto n 11-08-2024 Brain/Head without Contrast Normal [facility] Emergency Department Summary on 11-08-2024 Emergency Department Summary Normal [facility] Foot min 3 Viewson 5 Foot min 3 Views Normal [facility] Absolute lymphocyte countOrd ered By: Nando Wiggins on 11-05-2024 Lymphocytes Auto (Unsp spec) [#/Vol] 1.94 10*3/uL 0.83-4.51 [facility] Anion gap in Serum or Plasma Ordered By: Nando Wiggins on 11-05-2024 Anion gap [Moles/Vol] 16 mmol/L High 5-15 [facility] Automated lymphocyte count a s percentage of total leukocytesOrdered By: Nando Wiggins on 11-05-2024 Lymphocytes/100 WBC Auto (Unsp spec) 25.6 % 19-41 [facility] BUN/creatinine ratioOrdered By: Nando Wiggins on 11-05-2024 Urea nitrogen/Creatinine [Mass ratio] 12.4 mg/mg 10-20 [facility] Basophil percentageOrdered B y: Nando Wiggisn on 11-05-2024 Basophils/100 WBC (Bld) 0.7 % 0-1 [facility] Carbon dioxide, total [Moles /volume] in Central venous bloodOrdered By: Nando Wiggins on 11-05-2024 CO2 [Moles/Vol] 24.7 mmol/L 21.0-32.0 [facility] Chloride assayOrdered By: Kathie Wiggins on 11-05-2024 Chloride [Moles/Vol] 90 mmol/L Low 98-108 [facility] Eosinophil percentageOrdered By: Nando Wiggins on 11-05-2024 Eosinophils/100 WBC (Bld) 3.8 % 0-5 [facility] Erythrocyte distribution wid th ratioOrdered By: Nando Wiggins on 11-05-2024 Erythrocyte distribution width (RBC) [Ratio] 16.2 % High 11.6-14.6 [facility] Erythrocyte distribution wid th standard deviationOrdered By: Nando Wiggins on 11-05-2024 Erythrocyte distribution width (RBC) [Ratio] 52.6 fl High 35.1-43.9 [facility] Glomerular filtration rate ( GFR) estimation/1.73 sq m using serum, plasma, or whole bOrdered By: Nando Wiggins on 11-05-2024 GFR/1.73 sq M.predicted among non-blacks MDRD (S/P/Bld) [Vol rate/Area] 10 mL/min/{1.73_m2} Low >60 [facility] Hematocrit Auto (Bld) [Volum e fraction]Ordered By: Nando Wiggins on 11-05-2024 Hematocrit (Bld) [Volume fraction] 37.4 % Low 40-54 [facility] Hemoglobin measurementOrdere d By: Nanod Wiggins on 11-05-2024 Hemoglobin (Bld) [Mass/Vol] 11.7 g/dL Low 13.0-16.5 [facility] Immature granulocytes/100 WB C Auto (Bld)Ordered By: Nando Meekcheko on 11-05-2024 Immature granulocytes/100 WBC (Bld) 0.400 % 0.0-0.9 [facility] MCV (mean corpuscular volume ) determinationOrdered By: Debminocquawolf Meeklakshmidesiree on 11-05-2024 MCV (RBC) [Entitic vol] 89.3 fL 80-94 [facility] Mean corpuscular hemoglobin (MCH) determinationOrdered By: Nando Wiggins on 11-05-2024 MCH (RBC) [Entitic mass] 27.9 pg 27.0-32.0 [facility] Monocyte percentageOrdered B y: Nando Wiggins on 11-05-2024 Monocytes/100 WBC (Bld) 12.3 % High 0-10 [facility] Neutrophil percentageOrdered By: biancaminocquawolf Wiggins on 11-05-2024 Neutrophils/100 WBC (Bld) 57.2 % 47-70 [facility] Platelet countOrdered By: Kathie Wiggins on 11-05-2024 Platelets (Bld) [#/Vol] 188 10*3/uL 150-450 [facility] Potassium measurement (mass/ volume)Ordered By: Nando Wiggins on 11-05-2024 Potassium (Unsp spec) [Mass/Vol] 4.4 mmol/L 3.3-5.1 [facility] RBC Auto (Bld) [#/Vol]Ordere d By: Nando Wiggins on 11-05-2024 RBC (Bld) [#/Vol] 4.19 10*6/uL Low 4.6-6.2 [facility] Serum creatinine measurement (mass/volume)Ordered By: Nando Wiggins on 11-05-2024 Creatinine [Mass/Vol] 5.10 mg/dL High 0.70-1.20 [facility] Serum glucose measurement (m ass/volume)Ordered By: Nando Wiggins on 11-05-2024 Glucose [Mass/Vol] 81 mg/dL 70-99 [facility] Serum or plasma calcium lilli urement (mass/volume)Ordered By: Nando Wiggins on 11-05-2024 Calcium [Mass/Vol] 9.1 mg/dL 7.6-11.0 [facility] Serum or plasma urea nitroge n measurement (mass/volume)Ordered By: Nando Wiggins on 11-05-2024 Urea nitrogen [Mass/Vol] 63 mg/dL High 4-19 [facility] Sodium levelOrdered By: Deb rosejeremie Rosalie on 11-05-2024 Sodium [Moles/Vol] 131 mmol/L Low 133-145 [facility] White blood cell (WBC) count Ordered By: Nando Wiggins on 11-05-2024 WBC (Bld) [#/Vol] 7.6 10*3/uL 4.4-11.0 [facility] Absolute lymphocyte countOrd ered By: Nando Wiggins on 10-29-2024 Lymphocytes Auto (Unsp spec) [#/Vol] 2.20 10*3/uL 0.83-4.51 [facility] Anion gap in Serum or Plasma Ordered By: Nando Wiggins on 10-29-2024 Anion gap [Moles/Vol] 16 mmol/L High 5-15 [facility] Automated lymphocyte count a s percentage of total leukocytesOrdered By: Nando Wiggins on 10-29-2024 Lymphocytes/100 WBC Auto (Unsp spec) 27.2 % 19-41 [facility] BUN/creatinine ratioOrdered By: Nando Wiggins on 10-29-2024 Urea nitrogen/Creatinine [Mass ratio] 9.4 mg/mg Low 10-20 [facility] Basophil percentageOrdered B y: Nando Wiggins on 10-29-2024 Basophils/100 WBC (Bld) 0.9 % 0-1 [facility] Carbon dioxide, total [Moles /volume] in Central venous bloodOrdered By: Nando Wiggins on 10-29-2024 CO2 [Moles/Vol] 25.6 mmol/L 21.0-32.0 [facility] Cardiology Visit Reporton Cardiology Visit Report Normal [facility] Chloride assayOrdered By: Kathie Wiggins on 10-29-2024 Chloride [Moles/Vol] 93 mmol/L Low 98-108 [facility] Eosinophil percentageOrdered By: Nando Wiggins on 10-29-2024 Eosinophils/100 WBC (Bld) 4.8 % 0-5 [facility] Erythrocyte distribution wid th ratioOrdered By: fili Wiggins on 10-29-2024 Erythrocyte distribution width (RBC) [Ratio] 16.9 % High 11.6-14.6 [facility] Erythrocyte distribution wid th standard deviationOrdered By: Nando Wiggins on 10-29-2024 Erythrocyte distribution width (RBC) [Ratio] 53.9 fl High 35.1-43.9 [facility] Glomerular filtration rate ( GFR) estimation/1.73 sq m using serum, plasma, or whole bOrdered By: Nando Wiggins on 10-29-2024 GFR/1.73 sq M.predicted among non-blacks MDRD (S/P/Bld) [Vol rate/Area] 9 mL/min/{1.73_m2} Low >60 [facility] Hematocrit Auto (Bld) [Volum e fraction]Ordered By: Nando Wiggins on 10-29-2024 Hematocrit (Bld) [Volume fraction] 37.8 % Low 40-54 [facility] Hemoglobin measurementOrdere d By: Nando Wiggins on 10-29-2024 Hemoglobin (Bld) [Mass/Vol] 11.6 g/dL Low 13.0-16.5 [facility] Immature granulocytes/100 WB C Auto (Bld)Ordered By: Nando Wiggins on 10-29-2024 Immature granulocytes/100 WBC (Bld) 0.200 % 0.0-0.9 [facility] MCV (mean corpuscular volume ) determinationOrdered By: Nando Wiggins on 10-29-2024 MCV (RBC) [Entitic vol] 89.2 fL 80-94 [facility] Mean corpuscular hemoglobin (MCH) determinationOrdered By: Nando Wiggins on 10-29-2024 MCH (RBC) [Entitic mass] 27.4 pg 27.0-32.0 [facility] Monocyte percentageOrdered B y: Nando Wiggins on 10-29-2024 Monocytes/100 WBC (Bld) 11.1 % High 0-10 [facility] Neutrophil percentageOrdered By: Nando Wiggins on 10-29-2024 Neutrophils/100 WBC (Bld) 55.8 % 47-70 [facility] Platelet countOrdered By: Kathie biancalilian Wiggins on 10-29-2024 Platelets (Bld) [#/Vol] 219 10*3/uL 150-450 [facility] Potassium measurement (mass/ volume)Ordered By: Nando Wiggins on 10-29-2024 Potassium (Unsp spec) [Mass/Vol] 4.4 mmol/L 3.3-5.1 [facility] RBC Auto (Bld) [#/Vol]Ordere d By: Nando Wiggins on 10-29-2024 RBC (Bld) [#/Vol] 4.24 10*6/uL Low 4.6-6.2 [facility] Serum creatinine measurement (mass/volume)Ordered By: Nando Wiggins on 10-29-2024 Creatinine [Mass/Vol] 5.65 mg/dL High 0.70-1.20 [facility] Serum glucose measurement (m ass/volume)Ordered By: Nando Wiggins on 10-29-2024 Glucose [Mass/Vol] 86 mg/dL 70-99 [facility] Serum or plasma calcium lilli urement (mass/volume)Ordered By: Nando Wiggins on 10-29-2024 Calcium [Mass/Vol] 9.5 mg/dL 7.6-11.0 [facility] Serum or plasma urea nitroge n measurement (mass/volume)Ordered By: Debsrinathwolf Edenlakshmidesiree on 10-29-2024 Urea nitrogen [Mass/Vol] 53 mg/dL High 4-19 [facility] Sodium levelOrdered By: Deb quintana Meeklakshmidesiree on 10-29-2024 Sodium [Moles/Vol] 135 mmol/L 133-145 [facility] White blood cell (WBC) count Ordered By: Debsrinathwolf Edenlakshmidesiree on 10-29-2024 WBC (Bld) [#/Vol] 8.1 10*3/uL 4.4-11.0 [facility] Absolute lymphocyte countOrd ered By: Debsrinathwolf Edenlakshmidesiree on 10-22-2024 Lymphocytes Auto (Unsp spec) [#/Vol] 1.76 10*3/uL 0.83-4.51 [facility] Anion gap in Serum or Plasma Ordered By: Nando Wiggins on 10-22-2024 Anion gap [Moles/Vol] 16 mmol/L High 5-15 [facility] Automated lymphocyte count a s percentage of total leukocytesOrdered By: Debsrinathwolf Edenlakshmidesiree on 10-22-2024 Lymphocytes/100 WBC Auto (Unsp spec) 19.8 % 19-41 [facility] BUN/creatinine ratioOrdered By: Nando Edenlakshmidesiree on 10-22-2024 Urea nitrogen/Creatinine [Mass ratio] 12.2 mg/mg 10-20 [facility] Basophil percentageOrdered B y: Debsrinathwolf Edenlakshmidesiree on 10-22-2024 Basophils/100 WBC (Bld) 0.6 % 0-1 [facility] Carbon dioxide, total [Moles /volume] in Central venous bloodOrdered By: Nando Edenlakshmidesiree on 10-22-2024 CO2 [Moles/Vol] 27.2 mmol/L 21.0-32.0 [facility] Chloride assayOrdered By: Kathie Wiggins on 10-22-2024 Chloride [Moles/Vol] 91 mmol/L Low 98-108 [facility] Eosinophil percentageOrdered By: Debsrinathwolf Edenlakshmidesiree on 10-22-2024 Eosinophils/100 WBC (Bld) 3.0 % 0-5 [facility] Erythrocyte distribution wid th ratioOrdered By: Nando Wiggins on 10-22-2024 Erythrocyte distribution width (RBC) [Ratio] 15.9 % High 11.6-14.6 [facility] Erythrocyte distribution wid th standard deviationOrdered By: Nando Wiggins on 10-22-2024 Erythrocyte distribution width (RBC) [Ratio] 53.1 fl High 35.1-43.9 [facility] Glomerular filtration rate ( GFR) estimation/1.73 sq m using serum, plasma, or whole bOrdered By: Debminocquawolf Wiggins on 10-22-2024 GFR/1.73 sq M.predicted among non-blacks MDRD (S/P/Bld) [Vol rate/Area] 12 mL/min/{1.73_m2} Low >60 [facility] Hematocrit Auto (Bld) [Volum e fraction]Ordered By: Nando Wiggins on 10-22-2024 Hematocrit (Bld) [Volume fraction] 35.6 % Low 40-54 [facility] Hemoglobin measurementOrdere d By: Nando Wiggins on 10-22-2024 Hemoglobin (Bld) [Mass/Vol] 10.7 g/dL Low 13.0-16.5 [facility] Immature granulocytes/100 WB C Auto (Bld)Ordered By: Nando Wiggins on 10-22-2024 Immature granulocytes/100 WBC (Bld) 0.400 % 0.0-0.9 [facility] MCV (mean corpuscular volume ) determinationOrdered By: Nando Wiggins on 10-22-2024 MCV (RBC) [Entitic vol] 90.6 fL 80-94 [facility] Mean corpuscular hemoglobin (MCH) determinationOrdered By: fili Wiggins on 10-22-2024 MCH (RBC) [Entitic mass] 27.2 pg 27.0-32.0 [facility] Monocyte percentageOrdered B y: Nando Wiggins on 10-22-2024 Monocytes/100 WBC (Bld) 10.1 % High 0-10 [facility] Neutrophil percentageOrdered By: Nando Wiggins on 10-22-2024 Neutrophils/100 WBC (Bld) 66.1 % 47-70 [facility] Platelet countOrdered By: Kathie Wiggins on 10-22-2024 Platelets (Bld) [#/Vol] 167 10*3/uL 150-450 [facility] Potassium measurement (mass/ volume)Ordered By: Nando Wiggins on 10-22-2024 Potassium (Unsp spec) [Mass/Vol] 4.1 mmol/L 3.3-5.1 [facility] RBC Auto (Bld) [#/Vol]Ordere d By: Nando Wiggins on 10-22-2024 RBC (Bld) [#/Vol] 3.93 10*6/uL Low 4.6-6.2 [facility] Serum creatinine measurement (mass/volume)Ordered By: Nando Wiggins on 10-22-2024 Creatinine [Mass/Vol] 4.58 mg/dL High 0.70-1.20 [facility] Serum glucose measurement (m ass/volume)Ordered By: Nando Wiggins on 10-22-2024 Glucose [Mass/Vol] 131 mg/dL High 70-99 [facility] Serum or plasma calcium lilli urement (mass/volume)Ordered By: Nando Wiggins on 10-22-2024 Calcium [Mass/Vol] 9.1 mg/dL 7.6-11.0 [facility] Serum or plasma urea nitroge n measurement (mass/volume)Ordered By: Nando Wiggins on 10-22-2024 Urea nitrogen [Mass/Vol] 56 mg/dL High 4-19 [facility] Sodium levelOrdered By: Deb Wiggins on 10-22-2024 Sodium [Moles/Vol] 134 mmol/L 133-145 [facility] White blood cell (WBC) count Ordered By: Nando Wiggins on 10-22-2024 WBC (Bld) [#/Vol] 8.9 10*3/uL 4.4-11.0 [facility] Surgery Visit Reporton 10-17 Surgery Visit Report Normal [facility] Absolute lymphocyte countOrd ered By: Nando Wiggins on 10-16-2024 Lymphocytes Auto (Unsp spec) [#/Vol] 1.40 10*3/uL 0.83-4.51 [facility] Anion gap in Serum or Plasma Ordered By: Nando Wiggins on 10-16-2024 Anion gap [Moles/Vol] 14 mmol/L 5-15 [facility] Automated lymphocyte count a s percentage of total leukocytesOrdered By: Nando Wiggins on 10-16-2024 Lymphocytes/100 WBC Auto (Unsp spec) 15.9 % Low 19-41 [facility] BUN/creatinine ratioOrdered By: Nando Wiggins on 10-16-2024 Urea nitrogen/Creatinine [Mass ratio] 13.8 mg/mg 10-20 [facility] Basophil percentageOrdered B y: Nando Wiggins on 10-16-2024 Basophils/100 WBC (Bld) 0.7 % 0-1 [facility] Carbon dioxide, total [Moles /volume] in Central venous bloodOrdered By: Nando Wiggins on 10-16-2024 CO2 [Moles/Vol] 27.7 mmol/L 21.0-32.0 [facility] Chloride assayOrdered By: Kathie Wiggins on 10-16-2024 Chloride [Moles/Vol] 93 mmol/L Low 98-108 [facility] Eosinophil percentageOrdered By: Nando Wiggins on 10-16-2024 Eosinophils/100 WBC (Bld) 2.7 % 0-5 [facility] Erythrocyte distribution wid th ratioOrdered By: Nando Wiggins on 10-16-2024 Erythrocyte distribution width (RBC) [Ratio] 15.8 % High 11.6-14.6 [facility] Erythrocyte distribution wid th standard deviationOrdered By: Nando Wiggins on 10-16-2024 Erythrocyte distribution width (RBC) [Ratio] 52.2 fl High 35.1-43.9 [facility] Glomerular filtration rate ( GFR) estimation/1.73 sq m using serum, plasma, or whole bOrdered By: Nando Wiggins on 10-16-2024 GFR/1.73 sq M.predicted among non-blacks MDRD (S/P/Bld) [Vol rate/Area] 9 mL/min/{1.73_m2} Low >60 [facility] Hematocrit Auto (Bld) [Volum e fraction]Ordered By: Nando Wiggins on 10-16-2024 Hematocrit (Bld) [Volume fraction] 34.0 % Low 40-54 [facility] Hemoglobin measurementOrdere d By: Nando Wiggins on 10-16-2024 Hemoglobin (Bld) [Mass/Vol] 10.4 g/dL Low 13.0-16.5 [facility] Immature granulocytes/100 WB C Auto (Bld)Ordered By: Nando Wiggins on 10-16-2024 Immature granulocytes/100 WBC (Bld) 0.300 % 0.0-0.9 [facility] MCV (mean corpuscular volume ) determinationOrdered By: Nando Wiggins on 10-16-2024 MCV (RBC) [Entitic vol] 90.2 fL 80-94 [facility] Mean corpuscular hemoglobin (MCH) determinationOrdered By: fili Wiggins on 10-16-2024 MCH (RBC) [Entitic mass] 27.6 pg 27.0-32.0 [facility] Monocyte percentageOrdered B y: Nando Wiggins on 10-16-2024 Monocytes/100 WBC (Bld) 9.3 % 0-10 [facility] Neutrophil percentageOrdered By: Nando Wiggins on 10-16-2024 Neutrophils/100 WBC (Bld) 71.1 % High 47-70 [facility] Platelet countOrdered By: Kathie Wiggins on 10-16-2024 Platelets (Bld) [#/Vol] 152 10*3/uL 150-450 [facility] Potassium measurement (mass/ volume)Ordered By: Nando Wiggins on 10-16-2024 Potassium (Unsp spec) [Mass/Vol] 4.6 mmol/L 3.3-5.1 [facility] RBC Auto (Bld) [#/Vol]Ordere d By: Nando Wiggins on 10-16-2024 RBC (Bld) [#/Vol] 3.77 10*6/uL Low 4.6-6.2 [facility] Serum creatinine measurement (mass/volume)Ordered By: Nando Wiggins on 10-16-2024 Creatinine [Mass/Vol] 5.65 mg/dL High 0.70-1.20 [facility] Serum glucose measurement (m ass/volume)Ordered By: Nando Wiggins on 10-16-2024 Glucose [Mass/Vol] 169 mg/dL High 70-99 [facility] Serum or plasma calcium lilli urement (mass/volume)Ordered By: Nando Wiggins on 10-16-2024 Calcium [Mass/Vol] 8.9 mg/dL 7.6-11.0 [facility] Serum or plasma urea nitroge n measurement (mass/volume)Ordered By: Nando Wiggins on 10-16-2024 Urea nitrogen [Mass/Vol] 78 mg/dL High 4-19 [facility] Sodium levelOrdered By: Deb lilian Rosalie on 10-16-2024 Sodium [Moles/Vol] 135 mmol/L 133-145 [facility] White blood cell (WBC) count Ordered By: Nando Wiggins on 10-16-2024 WBC (Bld) [#/Vol] 8.8 10*3/uL 4.4-11.0 [facility] Absolute lymphocyte countOrd ered By: Nando Wiggins on 10-08-2024 Lymphocytes Auto (Unsp spec) [#/Vol] 1.87 10*3/uL 0.83-4.51 [facility] Anion gap in Serum or Plasma Ordered By: Nando Wiggins on 10-08-2024 Anion gap [Moles/Vol] 13 mmol/L 5-15 [facility] Automated lymphocyte count a s percentage of total leukocytesOrdered By: Nando Wiggins on 10-08-2024 Lymphocytes/100 WBC Auto (Unsp spec) 27.5 % 19-41 [facility] BUN/creatinine ratioOrdered By: Nando Wiggins on 10-08-2024 Urea nitrogen/Creatinine [Mass ratio] 13.2 mg/mg 10-20 [facility] Basophil percentageOrdered B y: Nando Wiggins on 10-08-2024 Basophils/100 WBC (Bld) 1.0 % 0-1 [facility] Carbon dioxide, total [Moles /volume] in Central venous bloodOrdered By: Nando Wiggins on 10-08-2024 CO2 [Moles/Vol] 26.7 mmol/L 21.0-32.0 [facility] Chloride assayOrdered By: fili Wiggins on 10-08-2024 Chloride [Moles/Vol] 95 mmol/L Low 98-108 [facility] Eosinophil percentageOrdered By: fili Wiggins on 10-08-2024 Eosinophils/100 WBC (Bld) 2.9 % 0-5 [facility] Erythrocyte distribution wid th ratioOrdered By: biancaminocquawolf Wiggins on 10-08-2024 Erythrocyte distribution width (RBC) [Ratio] 16.0 % High 11.6-14.6 [facility] Erythrocyte distribution wid th standard deviationOrdered By: Nando Wiggins on 10-08-2024 Erythrocyte distribution width (RBC) [Ratio] 54.2 fl High 35.1-43.9 [facility] Glomerular filtration rate ( GFR) estimation/1.73 sq m using serum, plasma, or whole bOrdered By: Nando Wiggins on 10-08-2024 GFR/1.73 sq M.predicted among non-blacks MDRD (S/P/Bld) [Vol rate/Area] 12 mL/min/{1.73_m2} Low >60 [facility] Hematocrit Auto (Bld) [Volum e fraction]Ordered By: Nando Wiggins on 10-08-2024 Hematocrit (Bld) [Volume fraction] 35.5 % Low 40-54 [facility] Hemoglobin measurementOrdere d By: Nando Wiggins on 10-08-2024 Hemoglobin (Bld) [Mass/Vol] 10.7 g/dL Low 13.0-16.5 [facility] Immature granulocytes/100 WB C Auto (Bld)Ordered By: Nando Wiggins on 10-08-2024 Immature granulocytes/100 WBC (Bld) 0.400 % 0.0-0.9 [facility] MCV (mean corpuscular volume ) determinationOrdered By: Kathiefili Wiggins on 10-08-2024 MCV (RBC) [Entitic vol] 91.0 fL 80-94 [facility] Mean corpuscular hemoglobin (MCH) determinationOrdered By: Kathiefili Edenlakshmidesiree on 10-08-2024 MCH (RBC) [Entitic mass] 27.4 pg 27.0-32.0 [facility] Monocyte percentageOrdered B y: Brianwolf Edenlakshmidesiree on 10-08-2024 Monocytes/100 WBC (Bld) 8.2 % 0-10 [facility] Neutrophil percentageOrdered By: Kathiebiancaminocquawolf Edenlakshmidesiree on 10-08-2024 Neutrophils/100 WBC (Bld) 60.0 % 47-70 [facility] Platelet countOrdered By: Kathie fili Rosalie on 10-08-2024 Platelets (Bld) [#/Vol] 164 10*3/uL 150-450 [facility] Potassium measurement (mass/ volume)Ordered By: Nando Wiggins on 10-08-2024 Potassium (Unsp spec) [Mass/Vol] 4.1 mmol/L 3.3-5.1 [facility] RBC Auto (Bld) [#/Vol]Ordere d By: Debsrinathwolf Edenlakshmidesiree on 10-08-2024 RBC (Bld) [#/Vol] 3.90 10*6/uL Low 4.6-6.2 [facility] Serum creatinine measurement (mass/volume)Ordered By: Nando Wiggins on 10-08-2024 Creatinine [Mass/Vol] 4.42 mg/dL High 0.70-1.20 [facility] Serum glucose measurement (m ass/volume)Ordered By: Nando Wiggins on 10-08-2024 Glucose [Mass/Vol] 177 mg/dL High 70-99 [facility] Serum or plasma calcium lilli urement (mass/volume)Ordered By: Nando Wiggins on 10-08-2024 Calcium [Mass/Vol] 9.2 mg/dL 7.6-11.0 [facility] Serum or plasma urea nitroge n measurement (mass/volume)Ordered By: Nando Wiggins on 10-08-2024 Urea nitrogen [Mass/Vol] 59 mg/dL High 4- [facility] Sodium levelOrdered By: Deb rosejeremie Rosalie on 10-08-2024 Sodium [Moles/Vol] 135 mmol/L 133-145 [facility] White blood cell (WBC) count Ordered By: Nando Wiggins on 10-08-2024 WBC (Bld) [#/Vol] 6.8 10*3/uL 4.4-11.0 [facility] Surgery Visit Reporton 10-03 Surgery Visit Report Normal [facility] Absolute lymphocyte countOrd ered By: Nando Wiggins on 10-02-2024 Lymphocytes Auto (Unsp spec) [#/Vol] 1.76 10*3/uL 0.83-4.51 [facility] Anion gap in Serum or Plasma Ordered By: Nando Wiggins on 10-02-2024 Anion gap [Moles/Vol] 14 mmol/L 5-15 [facility] Automated lymphocyte count a s percentage of total leukocytesOrdered By: Nando Wiggins on 10-02-2024 Lymphocytes/100 WBC Auto (Unsp spec) 25.6 % 19-41 [facility] BUN/creatinine ratioOrdered By: Nando Wiggins on 10-02-2024 Urea nitrogen/Creatinine [Mass ratio] 17.4 mg/mg 10-20 [facility] Basophil percentageOrdered B y: Nando Wiggins on 10-02-2024 Basophils/100 WBC (Bld) 1.0 % 0-1 [facility] Carbon dioxide, total [Moles /volume] in Central venous bloodOrdered By: Nando Wiggins on 10-02-2024 CO2 [Moles/Vol] 26.5 mmol/L 21.0-32.0 [facility] Chloride assayOrdered By: Kathie Wiggins on 10-02-2024 Chloride [Moles/Vol] 90 mmol/L Low 98-108 [facility] Eosinophil percentageOrdered By: Nando Wiggins on 10-02-2024 Eosinophils/100 WBC (Bld) 2.5 % 0-5 [facility] Erythrocyte distribution wid th ratioOrdered By: Nando Wiggins on 10-02-2024 Erythrocyte distribution width (RBC) [Ratio] 16.2 % High 11.6-14.6 [facility] Erythrocyte distribution wid th standard deviationOrdered By: Nando Wiggins on 10-02-2024 Erythrocyte distribution width (RBC) [Ratio] 54.6 fl High 35.1-43.9 [facility] Glomerular filtration rate ( GFR) estimation/1.73 sq m using serum, plasma, or whole bOrdered By: Nando Wiggins on 10-02-2024 GFR/1.73 sq M.predicted among non-blacks MDRD (S/P/Bld) [Vol rate/Area] 10 mL/min/{1.73_m2} Low >60 [facility] Hematocrit Auto (Bld) [Volum e fraction]Ordered By: Nando Wiggins on 10-02-2024 Hematocrit (Bld) [Volume fraction] 35.1 % Low 40-54 [facility] Hemoglobin measurementOrdere d By: Nando Wiggins on 10-02-2024 Hemoglobin (Bld) [Mass/Vol] 10.5 g/dL Low 13.0-16.5 [facility] Immature granulocytes/100 WB C Auto (Bld)Ordered By: Nando Wiggins on 10-02-2024 Immature granulocytes/100 WBC (Bld) 0.300 % 0.0-0.9 [facility] MCV (mean corpuscular volume ) determinationOrdered By: Nando Wiggins on 10-02-2024 MCV (RBC) [Entitic vol] 91.4 fL 80-94 [facility] Mean corpuscular hemoglobin (MCH) determinationOrdered By: Nando Wiggins on 10-02-2024 MCH (RBC) [Entitic mass] 27.3 pg 27.0-32.0 [facility] Monocyte percentageOrdered B y: Nando Wiggins on 10-02-2024 Monocytes/100 WBC (Bld) 10.5 % High 0-10 [facility] Neutrophil percentageOrdered By: Nando Wiggins on 10-02-2024 Neutrophils/100 WBC (Bld) 60.1 % 47-70 [facility] Platelet countOrdered By: Kathie Wiggins on 10-02-2024 Platelets (Bld) [#/Vol] 158 10*3/uL 150-450 [facility] Potassium measurement (mass/ volume)Ordered By: Nando Wiggins on 10-02-2024 Potassium (Unsp spec) [Mass/Vol] 4.3 mmol/L 3.3-5.1 [facility] RBC Auto (Bld) [#/Vol]Ordere d By: Nando Wiggins on 10-02-2024 RBC (Bld) [#/Vol] 3.84 10*6/uL Low 4.6-6.2 [facility] Serum creatinine measurement (mass/volume)Ordered By: Nando Wiggins on 10-02-2024 Creatinine [Mass/Vol] 5.22 mg/dL High 0.70-1.20 [facility] Serum glucose measurement (m ass/volume)Ordered By: Nando Wiggins on 10-02-2024 Glucose [Mass/Vol] 346 mg/dL High 70-99 [facility] Serum or plasma calcium lilli urement (mass/volume)Ordered By: Nando Wiggins on 10-02-2024 Calcium [Mass/Vol] 9.0 mg/dL 7.6-11.0 [facility] Serum or plasma urea nitroge n measurement (mass/volume)Ordered By: Nando Wiggins on 10-02-2024 Urea nitrogen [Mass/Vol] 91 mg/dL High 4-19 [facility] Sodium levelOrdered By: Deb Wiggins on 10-02-2024 Sodium [Moles/Vol] 131 mmol/L Low 133-145 [facility] White blood cell (WBC) count Ordered By: Nando Wiggins on 10-02-2024 WBC (Bld) [#/Vol] 6.9 10*3/uL 4.4-11.0 [facility] Absolute lymphocyte countOrd ered By: Nando Wiggins on 09-24-2024 Lymphocytes Auto (Unsp spec) [#/Vol] 1.75 10*3/uL 0.83-4.51 [facility] Anion gap in Serum or Plasma Ordered By: Nando Wiggins on 09-24-2024 Anion gap [Moles/Vol] 14 mmol/L 5-15 [facility] Automated lymphocyte count a s percentage of total leukocytesOrdered By: Nando Wiggins on 09-24-2024 Lymphocytes/100 WBC Auto (Unsp spec) 25.8 % 19-41 [facility] BUN/creatinine ratioOrdered By: [facility] on 09-24-2024 Urea nitrogen/Creatinine [Mass ratio] 12.6 mg/mg 10-20 [facility] Basophil percentageOrdered B y: Nando Wiggins on 09-24-2024 Basophils/100 WBC (Bld) 0.7 % 0-1 [facility] Carbon dioxide, total [Moles /volume] in Central venous bloodOrdered By: Nando Wiggins on 09-24-2024 CO2 [Moles/Vol] 26.2 mmol/L 21.0-32.0 [facility] Chloride assayOrdered By: Kathie Wiggins on 09-24-2024 Chloride [Moles/Vol] 93 mmol/L Low 98-108 [facility] Eosinophil percentageOrdered By: fili Wiggins on 09-24-2024 Eosinophils/100 WBC (Bld) 2.7 % 0-5 [facility] Erythrocyte distribution wid th ratioOrdered By: Nando Wiggins on 09-24-2024 Erythrocyte distribution width (RBC) [Ratio] 17.2 % High 11.6-14.6 [facility] Erythrocyte distribution wid th standard deviationOrdered By: fili Wiggins on 09-24-2024 Erythrocyte distribution width (RBC) [Ratio] 58.0 fl High 35.1-43.9 [facility] Glomerular filtration rate ( GFR) estimation/1.73 sq m using serum, plasma, or whole bOrdered By: Nando Wiggins on 09-24-2024 GFR/1.73 sq M.predicted among non-blacks MDRD (S/P/Bld) [Vol rate/Area] 13 mL/min/{1.73_m2} Low >60 [facility] Hematocrit Auto (Bld) [Volum e fraction]Ordered By: Nando Wiggins on 09-24-2024 Hematocrit (Bld) [Volume fraction] 34.6 % Low 40-54 [facility] Hemoglobin measurementOrdere d By: Nando Wiggins on 09-24-2024 Hemoglobin (Bld) [Mass/Vol] 10.3 g/dL Low 13.0-16.5 [facility] Immature granulocytes/100 WB C Auto (Bld)Ordered By: biancaminocquawolf Wiggins on 09-24-2024 Immature granulocytes/100 WBC (Bld) 0.400 % 0.0-0.9 [facility] MCV (mean corpuscular volume ) determinationOrdered By: biancaminocquawolf Wiggins on 09-24-2024 MCV (RBC) [Entitic vol] 90.8 fL 80-94 [facility] Mean corpuscular hemoglobin (MCH) determinationOrdered By: [facility] on 09-24-2024 MCH (RBC) [Entitic mass] 27.0 pg 27.0-32.0 [facility] Monocyte percentageOrdered B y: Nando Wiggins on 09-24-2024 Monocytes/100 WBC (Bld) 11.8 % High 0-10 [facility] Neutrophil percentageOrdered By: [facility] 09-24-2024 Neutrophils/100 WBC (Bld) 58.6 % 47-70 [facility] Platelet countOrdered By: Kathie Wiggins on 09-24-2024 Platelets (Bld) [#/Vol] 209 10*3/uL 150-450 [facility] Potassium measurement (mass/ volume)Ordered By: fili Wiggins 09-24-2024 Potassium (Unsp spec) [Mass/Vol] 3.4 mmol/L 3.3-5.1 [facility] RBC Auto (Bld) [#/Vol]Ordere d By: Nando Wiggins on 09-24-2024 RBC (Bld) [#/Vol] 3.81 10*6/uL Low 4.6-6.2 [facility] Serum creatinine measurement (mass/volume)Ordered By: Nando Wiggins on 09-24-2024 Creatinine [Mass/Vol] 4.34 mg/dL High 0.70-1.20 [facility] Serum glucose measurement (m ass/volume)Ordered By: Nando Wiggins on 09-24-2024 Glucose [Mass/Vol] 241 mg/dL High 70-99 [facility] Serum or plasma calcium lilli urement (mass/volume)Ordered By: Nando Wiggins on 09-24-2024 Calcium [Mass/Vol] 9.0 mg/dL 7.6-11.0 [facility] Serum or plasma urea nitroge n measurement (mass/volume)Ordered By: Nando Wiggins on 09-24-2024 Urea nitrogen [Mass/Vol] 55 mg/dL High 4-19 [facility] Sodium levelOrdered By: Deb rosetirsodesiree Wiggins on 09-24-2024 Sodium [Moles/Vol] 134 mmol/L 133-145 [facility] White blood cell (WBC) count Ordered By: Nando Wiggins on 09-24-2024 WBC (Bld) [#/Vol] 6.8 10*3/uL 4.4-11.0 [facility] Absolute lymphocyte countOrd ered By: Nando Wiggins on 09-17-2024 Lymphocytes Auto (Unsp spec) [#/Vol] 1.93 10*3/uL 0.83-4.51 [facility] Anion gap in Serum or Plasma Ordered By: Nando Wiggins on 09-17-2024 Anion gap [Moles/Vol] 13 mmol/L 5-15 [facility] Automated lymphocyte count a s percentage of total leukocytesOrdered By: Nando Wiggins on 09-17-2024 Lymphocytes/100 WBC Auto (Unsp spec) 18.7 % Low 19-41 [facility] BUN/creatinine ratioOrdered By: Nando Wiggins on 09-17-2024 Urea nitrogen/Creatinine [Mass ratio] 12.3 mg/mg 10-20 [facility] Basophil percentageOrdered B y: Nando Wiggins on 09-17-2024 Basophils/100 WBC (Bld) 0.7 % 0-1 [facility] Carbon dioxide, total [Moles /volume] in Central venous bloodOrdered By: Nando Wiggins on 09-17-2024 CO2 [Moles/Vol] 27.5 mmol/L 21.0-32.0 [facility] Chloride assayOrdered By: Kathie biancalilian Wiggins on 09-17-2024 Chloride [Moles/Vol] 93 mmol/L Low 98-108 [facility] Eosinophil percentageOrdered By: Nando Wiggins on 09-17-2024 Eosinophils/100 WBC (Bld) 2.3 % 0-5 [facility] Erythrocyte distribution wid th ratioOrdered By: fili Wiggins on 09-17-2024 Erythrocyte distribution width (RBC) [Ratio] 17.6 % High 11.6-14.6 [facility] Erythrocyte distribution wid th standard deviationOrdered By: Nando Wiggins on 09-17-2024 Erythrocyte distribution width (RBC) [Ratio] 59.3 fl High 35.1-43.9 [facility] Glomerular filtration rate ( GFR) estimation/1.73 sq m using serum, plasma, or whole bOrdered By: Nando Wiggins on 09-17-2024 GFR/1.73 sq M.predicted among non-blacks MDRD (S/P/Bld) [Vol rate/Area] 13 mL/min/{1.73_m2} Low >60 [facility] Hematocrit Auto (Bld) [Volum e fraction]Ordered By: Nando Wiggins on 09-17-2024 Hematocrit (Bld) [Volume fraction] 32.9 % Low 40-54 [facility] Hemoglobin measurementOrdere d By: Nando Wiggins on 09-17-2024 Hemoglobin (Bld) [Mass/Vol] 9.7 g/dL Low 13.0-16.5 [facility] Immature granulocytes/100 WB C Auto (Bld)Ordered By: Nando Wiggins on 09-17-2024 Immature granulocytes/100 WBC (Bld) 0.400 % 0.0-0.9 [facility] MCV (mean corpuscular volume ) determinationOrdered By: Nando Meeklakshmidesiree on 09-17-2024 MCV (RBC) [Entitic vol] 91.9 fL 80-94 [facility] Mean corpuscular hemoglobin (MCH) determinationOrdered By: Nando Wiggins on 09-17-2024 MCH (RBC) [Entitic mass] 27.1 pg 27.0-32.0 [facility] Monocyte percentageOrdered B y: Nando Wiggins on 09-17-2024 Monocytes/100 WBC (Bld) 10.2 % High 0-10 [facility] Neutrophil percentageOrdered By: biancaminocquawolf Wiggins on 09-17-2024 Neutrophils/100 WBC (Bld) 67.7 % 47-70 [facility] Platelet countOrdered By: Kathie Wiggins on 09-17-2024 Platelets (Bld) [#/Vol] 275 10*3/uL 150-450 [facility] Potassium measurement (mass/ volume)Ordered By: Kathiebiancasrinathwolf Edenlakshmidesiree on 09-17-2024 Potassium (Unsp spec) [Mass/Vol] 3.3 mmol/L 3.3-5.1 [facility] RBC Auto (Bld) [#/Vol]Ordere d By: Nando Wiggins on 09-17-2024 RBC (Bld) [#/Vol] 3.58 10*6/uL Low 4.6-6.2 [facility] Serum creatinine measurement (mass/volume)Ordered By: Kathiefili Wiggins on 09-17-2024 Creatinine [Mass/Vol] 4.25 mg/dL High 0.70-1.20 [facility] Serum glucose measurement (m ass/volume)Ordered By: Kathiebiancasrinathwolf Edenlakshmidesiree on 09-17-2024 Glucose [Mass/Vol] 151 mg/dL High 70-99 [facility] Serum or plasma calcium lilli urement (mass/volume)Ordered By: Kathiebiancasrinathwolf Edenlakshmidesiree on 09-17-2024 Calcium [Mass/Vol] 8.7 mg/dL 7.6-11.0 [facility] Serum or plasma urea nitroge n measurement (mass/volume)Ordered By: Nando Wiggins on 09-17-2024 Urea nitrogen [Mass/Vol] 52 mg/dL High 4-19 [facility] Sodium levelOrdered By: Deb Wiggins on 09-17-2024 Sodium [Moles/Vol] 134 mmol/L 133-145 [facility] White blood cell (WBC) count Ordered By: Nando Wiggins on 09-17-2024 WBC (Bld) [#/Vol] 10.3 10*3/uL 4.4-11.0 [facility] Bilirubin directOrdered By: Nadno Wiggins on 09-12-2024 Bilirubin.direct [Mass/Vol] 0.11 mg/dL 0.00-0.30 [facility] Bilirubin, totalOrdered By: Nando Wiggins on 09-12-2024 Bilirubin [Mass/Vol] 0.25 mg/dL 0.00-1.30 [facility] Hemoglobin A1c percentageOrd ered By: Nando Wiggins on 09-12-2024 HbA1c (Bld) [Mass fraction] 6.1 % High <5.7 [facility] No Panel InformationOrdered By: Nando Wiggins on 09-12-2024 16 U/L <38 [facility] Serum globulin measurementOr dered By: Nando Wiggins 09-12-2024 Globulin (S) [Mass/Vol] 3.3 g/dL 2.2-4.2 [facility] Serum or plasma alanine hawkins otransferase (ALT) measurementOrdered By: Nando Wiggins 09-12-2024 ALT [Catalytic activity/Vol] U/L <47 [facility] Serum or plasma albumin lilli urement (mass/volume)Ordered By: Nando Wiggins 09-12-2024 Albumin [Mass/Vol] 2.8 g/dL Low 3.4-4.8 [facility] Serum or plasma alkaline penelope sphatase measurementOrdered By: Nando Wiggins 09-12-2024 ALP [Catalytic activity/Vol] 55 U/L 40-129 [facility] Total proteinOrdered By: Sinan Wiggins on 09-12-2024 Protein [Mass/Vol] 6.0 g/dL 5.9-8.4 [facility] Vitamin B12 ser/plasOrdered By: Nando Wiggins on 09-12-2024 Cobalamin (Vitamin B12) [Mass/Vol] 717 pg/mL 180-914 [facility] Absolute lymphocyte countOrd ered By: Nando Wiggins on 09-10-2024 Lymphocytes Auto (Unsp spec) [#/Vol] 1.78 10*3/uL 0.83-4.51 [facility] Anion gap in Serum or Plasma Ordered By: Nando Meekcheko on 09-10-2024 Anion gap [Moles/Vol] 12 mmol/L 5-15 [facility] Automated lymphocyte count a s percentage of total leukocytesOrdered By: Nando Meekcheko on 09-10-2024 Lymphocytes/100 WBC Auto (Unsp spec) 21.1 % 19-41 [facility] BUN/creatinine ratioOrdered By: Nando Wiggins on 09-10-2024 Urea nitrogen/Creatinine [Mass ratio] 11.1 mg/mg 10-20 [facility] Basophil percentageOrdered B y: Nando Wiggins on 09-10-2024 Basophils/100 WBC (Bld) 0.7 % 0-1 [facility] Carbon dioxide, total [Moles /volume] in Central venous bloodOrdered By: Nando Meekcheko on 09-10-2024 CO2 [Moles/Vol] 27.1 mmol/L 21.0-32.0 [facility] Chloride assayOrdered By: Kathie penn Meeklakshmidesiree on 09-10-2024 Chloride [Moles/Vol] 94 mmol/L Low 98-108 [facility] Eosinophil percentageOrdered By: Nando Wiggins on 09-10-2024 Eosinophils/100 WBC (Bld) 1.8 % 0-5 [facility] Erythrocyte distribution wid th ratioOrdered By: Nando Meeklakshmidesiree on 09-10-2024 Erythrocyte distribution width (RBC) [Ratio] 17.3 % High 11.6-14.6 [facility] Erythrocyte distribution wid th standard deviationOrdered By: Nando Wiggins on 09-10-2024 Erythrocyte distribution width (RBC) [Ratio] 56.1 fl High 35.1-43.9 [facility] Glomerular filtration rate ( GFR) estimation/1.73 sq m using serum, plasma, or whole bOrdered By: Nando Wiggins on 09-10-2024 GFR/1.73 sq M.predicted among non-blacks MDRD (S/P/Bld) [Vol rate/Area] 14 mL/min/{1.73_m2} Low >60 [facility] Hematocrit Auto (Bld) [Volum e fraction]Ordered By: fili Wiggins on 09-10-2024 Hematocrit (Bld) [Volume fraction] 29.7 % Low 40-54 [facility] Hemoglobin measurementOrdere d By: biancaminocquawolf Wiggins on 09-10-2024 Hemoglobin (Bld) [Mass/Vol] 9.1 g/dL Low 13.0-16.5 [facility] Immature granulocytes/100 WB C Auto (Bld)Ordered By: Nando Wiggins on 09-10-2024 Immature granulocytes/100 WBC (Bld) 1.200 % High 0.0-0.9 [facility] MCV (mean corpuscular volume ) determinationOrdered By: Nando Wiggins on 09-10-2024 MCV (RBC) [Entitic vol] 88.9 fL 80-94 [facility] Mean corpuscular hemoglobin (MCH) determinationOrdered By: biancaminocquawolf Wiggins on 09-10-2024 MCH (RBC) [Entitic mass] 27.2 pg 27.0-32.0 [facility] Monocyte percentageOrdered B y: Nando Wiggins on 09-10-2024 Monocytes/100 WBC (Bld) 11.2 % High 0-10 [facility] Neutrophil percentageOrdered By: fili Wiggins on 09-10-2024 Neutrophils/100 WBC (Bld) 64.0 % 47-70 [facility] Platelet countOrdered By: Kathie Wiggins on 09-10-2024 Platelets (Bld) [#/Vol] 305 10*3/uL 150-450 [facility] Potassium measurement (mass/ volume)Ordered By: Nando Wiggins on 09-10-2024 Potassium (Unsp spec) [Mass/Vol] 3.9 mmol/L 3.3-5.1 [facility] RBC Auto (Bld) [#/Vol]Ordere d By: Nando Wiggins on 09-10-2024 RBC (Bld) [#/Vol] 3.34 10*6/uL Low 4.6-6.2 [facility] Serum creatinine measurement (mass/volume)Ordered By: Nando Wiggins on 09-10-2024 Creatinine [Mass/Vol] 3.98 mg/dL High 0.70-1.20 [facility] Serum glucose measurement (m ass/volume)Ordered By: Nando Wiggins on 09-10-2024 Glucose [Mass/Vol] 117 mg/dL High 70-99 [facility] Serum or plasma calcium lilli urement (mass/volume)Ordered By: Nando Wiggins on 09-10-2024 Calcium [Mass/Vol] 8.9 mg/dL 7.6-11.0 [facility] Serum or plasma urea nitroge n measurement (mass/volume)Ordered By: Nando Wiggins on 09-10-2024 Urea nitrogen [Mass/Vol] 44 mg/dL High 4-19 [facility] Sodium levelOrdered By: Deb rosejeremie Meeklakshmidesiree on 09-10-2024 Sodium [Moles/Vol] 133 mmol/L 133-145 [facility] White blood cell (WBC) count Ordered By: Nando Wiggins on 09-10-2024 WBC (Bld) [#/Vol] 8.5 10*3/uL 4.4-11.0 [facility] Bedside Glucoseon 09-04-2024 FINGERSTICK GLU 214 mg/dL High 74-106 [facility] Comment on above: Result Comment: FANG VAZQUEZ OF PATIENT CARE PER NURSING PROTOCOL Performed By: #### L 501.080 ####[facility] [address] [place], [address] FINGERSTICK GLU 151 mg/dL High 74-106 [facility] Comment on above: Result Comment: FANG GEMENT OF PATIENT CARE PER NURSING PROTOCOL Performed By: #### L 501.080 ####[facility] [address] [place], [address] Glucose measurement at [facility] deOrdered By: Lele White on 09-04-2024 Glucose [Mass/Vol] 214 mg/dL High 74-106 [facility] Absolute lymphocyte countOrd ered By: Salma Cervantes on 09-03-2024 Lymphocytes Auto (Unsp spec) [#/Vol] 1.48 10*3/uL 0.83-4.51 [facility] Automated lymphocyte count a s percentage of total leukocytesOrdered By: Salma Cervantes on 09-03-2024 Lymphocytes/100 WBC Auto (Unsp spec) 19.3 % 19-41 [facility] Basophil percentageOrdered B y: Salma Cervantes on 09-03-2024 Basophils/100 WBC (Bld) 0.5 % 0-1 [facility] Bedside Glucoseon 09-03-2024 FINGERSTICK GLU 219 mg/dL High -106 [facility] Comment on above: Result Comment: FANG GEMENT OF PATIENT CARE PER NURSING PROTOCOL Performed By: #### L 501.080 ####[facility] [address] [place], [address] FINGERSTICK GLU 212 mg/dL High -106 [facility] Comment on above: Result Comment: FANG GEMENT OF PATIENT CARE PER NURSING PROTOCOL Performed By: #### L 501.080 ####[facility] [address] [facility] [address] FINGERSTICK GLU 172 mg/dL High [address] [place] [address] Comment on above: Result Comment: FANG GEMENT OF PATIENT CARE PER NURSING PROTOCOL Performed By: #### L 501.080 ####[facility] [address] [place], [address] FINGERSTICK GLU 175 mg/dL High [facility]106 [facility] Comment on above: Result Comment: FANG VAZQUEZ OF PATIENT CARE PER NURSING PROTOCOL Performed By: #### L 501.080 ####[facility] [address] [place], [address] CBC W/Diff, Automatedon 08-21 Absolute Lymph 1.48 X10 3/uL Normal 0.83-4.51 [facility] Comment on above: Performed By: #### L 100.0100 ####[facility] [address] [place], [address] Absolute Neut 5.2 X10 3/uL Normal 2.0-7.7 [facility] Comment on above: Performed By: #### L 100.0100 ####[facility] [address] [place], [address] Basophils/100 WBC (Bld) 0.5 % Normal 0-1 [facility] Comment on above: Performed By: #### L 100.0100 ####[facility] [address] [place], [address] Eosinophils/100 WBC (Bld) 2.7 % Normal 0-5 [facility] Comment on above: Performed By: #### L 100.0100 ####[facility] [address] [place], [address] Erythrocyte distribution width (RBC) [Ratio] 16.3 % High 11.6-14.6 [facility] Comment on above: Performed By: #### L 100.0100 ####[facility] [address] [place], [address] Hematocrit (Bld) [Volume fraction] 24.8 % Low 40-54 [facility] Comment on above: Performed By: #### L 100.0100 ####[facility] [address] [place], [address] Hemoglobin (Bld) [Mass/Vol] 7.4 g/dL Low 13.0-16.5 [facility] Comment on above: Performed By: #### L 100.0100 ####[facility] [address] [place], [address] IG% 0.500 Normal 0.0-0.9 [facility] Comment on above: Result Comment: IG% - Immature Granulocytes (promyelocytes, myelocytes andmetamyelocytes) > 1% indicates that a LEFT SHIFT is Present. Performed By: #### L 100.0100 ####[facility] [address] [place], [address] Lymphocytes/100 WBC (Bld) 19.3 % Normal 19-41 [facility] Comment on above: Performed By: #### L 100.0100 ####[facility] [address] [place], [address] MCH (RBC) [Entitic mass] 26.6 pg Low 27.0-32.0 [facility] Comment on above: Performed By: #### L 100.0100 ####[facility] [address] [place], [address] MCHC (RBC) [Mass/Vol] 29.8 g/dL Low 32-36 [facility] Comment on above: Performed By: #### L 100.0100 ####[facility] [address] [place], [address] MCV (RBC) [Entitic vol] 89.2 fL Normal 80-94 [facility] Comment on above: Performed By: #### L 100.0100 ####[facility] [address] [place], [address] Monocytes/100 WBC (Bld) 9.7 % Normal 0-10 [facility] Comment on above: Performed By: #### L 100.0100 ####[facility] [address] [place], [address] Neutrophils/100 WBC (Bld) 67.3 % Normal 47-70 [facility] Comment on above: Performed By: #### L 100.0100 ####[facility] [address] [place], [address] Nucleated RBC (Bld) [#/Vol] 0 10*3/uL Normal 0-5 [facility] Comment on above: Performed By: #### L 100.0100 ####[facility] [address] [place], [address] Platelet mean volume (Bld) [Entitic vol] 10.9 fL Normal 6.2-12.0 [facility] Comment on above: Performed By: #### L 100.0100 ####[facility] [address] [place], [address] Platelets (Bld) [#/Vol] 305 10*3/uL Normal 150-450 [facility] Comment on above: Performed By: #### L 100.0100 ####[facility] [address] [place], [address] RBC (Bld) [#/Vol] 2.78 10*6/uL Low 4.6-6.2 [facility] Comment on above: Performed By: #### L 100.0100 ####[facility] [address] [place], [address] RDW SD 53.4 fl High 35.1-43.9 [facility] Comment on above: Performed By: #### L 100.0100 ####[facility] [address] [place], [address] WBC (Bld) [#/Vol] 7.7 10*3/uL Normal 4.4-11.0 [facility] Comment on above: Performed By: #### L 100.0100 ####[facility] [address] [place], [address] Eosinophil percentageOrdered By: Salma Cervantes on 09-03-2024 Eosinophils/100 WBC (Bld) 2.7 % 0-5 [facility] Erythrocyte distribution wid th ratioOrdered By: Salma Cervantes on 09-03-2024 Erythrocyte distribution width (RBC) [Ratio] 16.3 % High 11.6-14.6 [facility] Erythrocyte distribution wid th standard deviationOrdered By: Salma Cervantes on 09-03-2024 Erythrocyte distribution width (RBC) [Ratio] 53.4 fl High 35.1-43.9 [facility] Hematocrit Auto (Bld) [Volum e fraction]Ordered By: Salma Cervantes on 09-03-2024 Hematocrit (Bld) [Volume fraction] 24.8 % Low 40-54 [facility] Hemoglobin measurementOrdere d By: Salma Cervantes on 09-03-2024 Hemoglobin (Bld) [Mass/Vol] 7.4 g/dL Low 13.0-16.5 [facility] Immature granulocytes/100 WB C Auto (Bld)Ordered By: Salma Cervantes on 09-03-2024 Immature granulocytes/100 WBC (Bld) 0.500 % 0.0-0.9 [facility] MCV (mean corpuscular volume ) determinationOrdered By: Salma Cervantes on 09-03-2024 MCV (RBC) [Entitic vol] 89.2 fL 80-94 [facility] Mean corpuscular hemoglobin (MCH) determinationOrdered By: Salma Cervantes on 09-03-2024 MCH (RBC) [Entitic mass] 26.6 pg Low 27.0-32.0 [facility] Monocyte percentageOrdered B y: Salma Cervantes on 09-03-2024 Monocytes/100 WBC (Bld) 9.7 % 0-10 [facility] Neutrophil percentageOrdered By: Salma Cervantes on 09-03-2024 Neutrophils/100 WBC (Bld) 67.3 % 47-70 [facility] Platelet countOrdered By: Xavier Cervantes on 09-03-2024 Platelets (Bld) [#/Vol] 305 10*3/uL 150-450 [facility] RBC Auto (Bld) [#/Vol]Ordere d By: Salma Cervantes on 09-03-2024 RBC (Bld) [#/Vol] 2.78 10*6/uL Low 4.6-6.2 [facility] White blood cell (WBC) count Ordered By: Salma Cervantes on 09-03-2024 WBC (Bld) [#/Vol] 7.7 10*3/uL 4.4-11.0 [facility] Anion gap in Serum or Plasma Ordered By: Salma Cervantes on 09-02-2024 Anion gap [Moles/Vol] 12 mmol/L 10-04 [facility] BUN/creatinine ratioOrdered By: Salma Cervantes on 09-02-2024 Urea nitrogen/Creatinine [Mass ratio] 13.7 mg/mg 03-11 [facility] Basic Metabolic Profile (BMP )on 09-02-2024 BUN/CRE 13.7 RATIO Normal 03-11 [facility] Comment on above: Performed By: #### L 500.2500 ####[facility] [address] [place], [address] Calcium [Mass/Vol] 8.7 mg/dL Normal 7.6-11.0 [facility] Comment on above: Performed By: #### L 500.2500 ####[facility] [address] [place], [address] Chloride [Moles/Vol] 96 mmol/L Low 98-108 [facility] Comment on above: Performed By: #### L 500.2500 ####[facility] [address] [place], [address] CO2 [Moles/Vol] 23.2 mmol/L Normal 21.0-32.0 [facility] Comment on above: Performed By: #### L 500.2500 ####[facility] [address] [place], [address] Creatinine [Mass/Vol] 4.19 mg/dL High 0.70-1.20 [facility] Comment on above: Performed By: #### L 500.2500 ####[facility] [address] [place], [address] ECRCL 13.21 ml/min Low 50-250 [facility] Comment on above: Performed By: #### L 500.2500 ####[facility] [address] [place], [address] GAP 12 Normal 5-15 [facility] Comment on above: Performed By: #### L 500.2500 ####[facility] [address] [place], [address] GFR/1.73 sq M.predicted among non-blacks MDRD (S/P/Bld) [Vol rate/Area] 13 mL/min/{1.73_m2} Low >60 [facility] Comment on above: Result Comment: mL/m in/1.73m2 CKD-EPI Creatinine Equation (2020) Performed By: #### L 500.2500 ####[facility] [address] [place], [address] Glucose [Mass/Vol] 186 mg/dL High 70-99 [facility] Comment on above: Performed By: #### L 500.2500 ####[facility] [address] [place], [address] Potassium [Moles/Vol] 4.8 mmol/L Normal 3.3-5.1 [facility] Comment on above: Performed By: #### L 500.2500 ####[facility] [address] [place], [address] Sodium [Moles/Vol] 131 mmol/L Low 133-145 [facility] Comment on above: Performed By: #### L 500.2500 ####[facility] [address] [place], [address] Urea nitrogen [Mass/Vol] 57 mg/dL High 4-19 [facility] Comment on above: Performed By: #### L 500.2500 ####[facility] [address] [place], [address] Bedside Glucoseon 09-02-2024 FINGERSTICK GLU 212 mg/dL High 74-106 [facility] Comment on above: Result Comment: FANG GEMENT OF PATIENT CARE PER NURSING PROTOCOL Performed By: #### L 501.080 ####[facility] [address] [place], [address] FINGERSTICK GLU 183 mg/dL High 74-106 [facility] Comment on above: Result Comment: FANG GEMENT OF PATIENT CARE PER NURSING PROTOCOL Performed By: #### L 501.080 ####[facility] [address] [place], [address] FINGERSTICK GLU 219 mg/dL High -106 [facility] Comment on above: Result Comment: FANG GEMENT OF PATIENT CARE PER NURSING PROTOCOL Performed By: #### L 501.080 ####[facility] [address] [place], [address] FINGERSTICK GLU 177 mg/dL High -106 [facility] Comment on above: Result Comment: FANG GEMENT OF PATIENT CARE PER NURSING PROTOCOL Performed By: #### L 501.080 ####[facility] [address] [place], [address] CBC W/Diff, Automatedon 08-21 Absolute Lymph 1.42 X10 3/uL Normal 0.83-4.51 [facility] Comment on above: Performed By: #### L 100.0100 ####[facility] [address] [place], [address] Absolute Neut 4.8 X10 3/uL Normal 2.0-7.7 [facility] Comment on above: Performed By: #### L 100.0100 ####[facility] [address] [place], [address] Basophils/100 WBC (Bld) 0.4 % Normal 0-1 [facility] Comment on above: Performed By: #### L 100.0100 ####[facility] [address] [place], [address] Eosinophils/100 WBC (Bld) 3.2 % Normal 0-5 [facility] Comment on above: Performed By: #### L 100.0100 ####[facility] [address] [place], [address] Erythrocyte distribution width (RBC) [Ratio] 16.0 % High 11.6-14.6 [facility] Comment on above: Performed By: #### L 100.0100 ####[facility] [address] [place], [address] Hematocrit (Bld) [Volume fraction] 25.8 % Low 40-54 [facility] Comment on above: Performed By: #### L 100.0100 ####[facility] [address] [place], [address] Hemoglobin (Bld) [Mass/Vol] 7.8 g/dL Low 13.0-16.5 [facility] Comment on above: Performed By: #### L 100.0100 ####[facility] [address] [place], [address] IG% 0.400 Normal 0.0-0.9 [facility] Comment on above: Result Comment: IG% - Immature Granulocytes (promyelocytes, myelocytes andmetamyelocytes) > 1% indicates that a LEFT SHIFT is Present. Performed By: #### L 100.0100 ####[facility] [address] [place], [address] Lymphocytes/100 WBC (Bld) 19.9 % Normal 19-41 [facility] Comment on above: Performed By: #### L 100.0100 ####[facility] [address] [place] [facility], [address] MCH (RBC) [Entitic mass] 27.2 pg Normal 27.0-32.0 [facility] Comment on above: Performed By: #### L 100.0100 ####[facility] [address] [place], [address] MCHC (RBC) [Mass/Vol] 30.2 g/dL Low 32-36 [facility] Comment on above: Performed By: #### L 100.0100 ####[facility] [address] [place], [address] MCV (RBC) [Entitic vol] 89.9 fL Normal 80-94 [facility] Comment on above: Performed By: #### L 100.0100 ####[facility] [address] [place], [address] Monocytes/100 WBC (Bld) 9.1 % Normal 0-10 [facility] Comment on above: Performed By: #### L 100.0100 ####[facility] [address] [place], [address] Neutrophils/100 WBC (Bld) 67.0 % Normal 47-70 [facility] Comment on above: Performed By: #### L 100.0100 ####[facility] [address] [place], [address] Nucleated RBC (Bld) [#/Vol] 0 10*3/uL Normal 0-5 [facility] Comment on above: Performed By: #### L 100.0100 ####[facility] [address] [place], [address] Platelet mean volume (Bld) [Entitic vol] 10.6 fL Normal 6.2-12.0 [facility] Comment on above: Performed By: #### L 100.0100 ####[facility] [address] [place], [address] Platelets (Bld) [#/Vol] 284 10*3/uL Normal 150-450 [facility] Comment on above: Performed By: #### L 100.0100 ####[facility] [address] [place], [address] RBC (Bld) [#/Vol] 2.87 10*6/uL Low 4.6-6.2 [facility] Comment on above: Performed By: #### L 100.0100 ####[facility] [address] [place], [address] RDW SD 52.3 fl High 35.1-43.9 [facility] Comment on above: Performed By: #### L 100.0100 ####[facility] [address] [place], [address] WBC (Bld) [#/Vol] 7.2 10*3/uL Normal 4.4-11.0 [facility] Comment on above: Performed By: #### L 100.0100 ####[facility] [address] [place], [address] Carbon dioxide, total [Moles /volume] in Central venous bloodOrdered By: Salma Cervantes on 09-02-2024 CO2 [Moles/Vol] 23.2 mmol/L 21.0-32.0 [facility] Chloride assayOrdered By: Xavier eCrvantes on 09-02-2024 Chloride [Moles/Vol] 96 mmol/L Low 98-108 [facility] Glomerular filtration rate ( GFR) estimation/1.73 sq m using serum, plasma, or whole bOrdered By: Salma Cervantes on 09-02-2024 GFR/1.73 sq M.predicted among non-blacks MDRD (S/P/Bld) [Vol rate/Area] 13 mL/min/{1.73_m2} Low >60 [facility] Potassium measurement (mass/ volume)Ordered By: Salma Cervantes on 09-02-2024 Potassium (Unsp spec) [Mass/Vol] 4.8 mmol/L 3.3-5.1 [facility] Serum creatinine measurement (mass/volume)Ordered By: Salma Billy on 09-02-2024 Creatinine [Mass/Vol] 4.19 mg/dL High 0.70-1.20 [facility] Serum glucose measurement (m ass/volume)Ordered By: Salmavito Cervantes on 09-02-2024 Glucose [Mass/Vol] 186 mg/dL High 70-99 [facility] Serum or plasma calcium lilli urement (mass/volume)Ordered By: Salmavito Cervantes on 09-02-2024 Calcium [Mass/Vol] 8.7 mg/dL 7.6-11.0 [facility] Serum or plasma urea nitroge n measurement (mass/volume)Ordered By: Salmavito Cervantes on 09-02-2024 Urea nitrogen [Mass/Vol] 57 mg/dL High 4-19 [facility] Sodium levelOrdered By: Juan Cervantes on 09-02-2024 Sodium [Moles/Vol] 131 mmol/L Low 133-145 [facility] Bedside Glucoseon 09-01-2024 FINGERSTICK GLU 183 mg/dL High 74-106 [facility] Comment on above: Result Comment: FANG GEMENT OF PATIENT CARE PER NURSING PROTOCOL Performed By: #### L 501.080 ####[facility] [address] [facility] [address] FINGERSTICK GLU 230 mg/dL High 74-106 [facility] Comment on above: Result Comment: FANG GEMENT OF PATIENT CARE PER NURSING PROTOCOL Performed By: #### L 501.080 ####[facility] [address] [facility] [address] FINGERSTICK GLU 103 mg/dL Normal -106 [facility] Comment on above: Result Comment: FANG GEMENT OF PATIENT CARE PER NURSING PROTOCOL Performed By: #### L 501.080 ####[facility] [address] [place], [address] FINGERSTICK GLU 216 mg/dL High 74-106 [facility] Comment on above: Result Comment: FANG GEMENT OF PATIENT CARE PER NURSING PROTOCOL Performed By: #### L 501.080 ####[facility] [address] [place], [address] Serum or plasma vancomycin m easurement (mass/volume)Ordered By: Lele White on 09-01-2024 Vancomycin [Mass/Vol] 14.1 ug/mL 0.0-15.0 [facility] Vancomycin, Random Levelon 0 09-01-2024 VANCO, RANDOM 14.1 ug/mL Normal 0.0-15.0 [facility] Comment on above: Result Comment: VANC OMYCIN STANDARD DRUG THERAPY: CRITICAL VALUE IS > 15.0 mg/LVANCOMYCIN HIGH INTENSITY THERAPY: CRITICAL VALUE IS > 20.0 mg/LPLEASE CONTACT PHARMACY SERVICES (#7528) FOR INTERPRETATIONOF RESULTS. THIS RESULT DOES NOT REPRESENT A PEAK OR TROUGHLEVEL FOR THIS DRUG. Performed By: #### L 501.8850 ####[facility] [address] [facility] [phone] Fistula/Dialysis Graft Sc anon 08-31-2024 AV Fistula/Dialysis Graft Scan Normal [facility] Bedside Glucoseon 08-31-2024 FINGERSTICK GLU 169 mg/dL High 74-106 [facility] Comment on above: Result Comment: FANG GEMENT OF PATIENT CARE PER NURSING PROTOCOL Performed By: #### L 501.080 ####[facility] [address] [facility] [address] FINGERSTICK GLU 207 mg/dL High 74-106 [facility] Comment on above: Result Comment: FANG GEMENT OF PATIENT CARE PER NURSING PROTOCOL Performed By: #### L 501.080 ####[facility] [address] [facility] [address] FINGERSTICK GLU 162 mg/dL High 74-106 [facility] Comment on above: Result Comment: FANG GEMENT OF PATIENT CARE PER NURSING PROTOCOL Performed By: #### L 501.080 ####[facility] [address] [place], [address] FINGERSTICK GLU 189 mg/dL High 74-106 [facility] Comment on above: Result Comment: FANG VAZQUEZ OF PATIENT CARE PER NURSING PROTOCOL Performed By: #### L 501.080 ####[facility] [address] [place], [address] CBC W/Diff, Automatedon 08-21 Absolute Lymph 1.13 X10 3/uL Normal 0.83-4.51 [facility] Comment on above: Performed By: #### L 100.0100 ####[facility] [address] [place], [address] Absolute Neut 5.3 X10 3/uL Normal 2.0-7.7 [facility] Comment on above: Performed By: #### L 100.0100 ####[facility] [address] [place], [address] Basophils/100 WBC (Bld) 0.6 % Normal 0-1 [facility] Comment on above: Performed By: #### L 100.0100 ####[facility] [address] [place], [address] Eosinophils/100 WBC (Bld) 3.1 % Normal 0-5 [facility] Comment on above: Performed By: #### L 100.0100 ####[facility] [address] [place], [address] Erythrocyte distribution width (RBC) [Ratio] 16.1 % High 11.6-14.6 [facility] Comment on above: Performed By: #### L 100.0100 ####[facility] [address] [place], [address] Hematocrit (Bld) [Volume fraction] 26.1 % Low 40-54 [facility] Comment on above: Performed By: #### L 100.0100 ####[facility] [address] [place], [address] Hemoglobin (Bld) [Mass/Vol] 7.7 g/dL Low 13.0-16.5 [facility] Comment on above: Performed By: #### L 100.0100 ####[facility] [address] [place], [address] IG% 0.500 Normal 0.0-0.9 [facility] Comment on above: Result Comment: IG% - Immature Granulocytes (promyelocytes, myelocytes andmetamyelocytes) > 1% indicates that a LEFT SHIFT is Present. Performed By: #### L 100.0100 ####[facility] [address] [place], [address] Lymphocytes/100 WBC (Bld) 14.5 % Low 19-41 [facility] Comment on above: Performed By: #### L 100.0100 ####[facility] [address] [place], [address] MCH (RBC) [Entitic mass] 27.0 pg Normal 27.0-32.0 [facility] Comment on above: Performed By: #### L 100.0100 ####[facility] [address] [place], [address] MCHC (RBC) [Mass/Vol] 29.5 g/dL Low 32-36 [facility] Comment on above: Performed By: #### L 100.0100 ####[facility] [address] [place], [address] MCV (RBC) [Entitic vol] 91.6 fL Normal 80-94 [facility] Comment on above: Performed By: #### L 100.0100 ####[facility] [address] [place], [address] Monocytes/100 WBC (Bld) 12.9 % High 0-10 [facility] Comment on above: Performed By: #### L 100.0100 ####[facility] [address] [place], [address] Neutrophils/100 WBC (Bld) 68.4 % Normal 47-70 [facility] Comment on above: Performed By: #### L 100.0100 ####[facility] [address] [place], [address] Nucleated RBC (Bld) [#/Vol] 0 10*3/uL Normal 0-5 [facility] Comment on above: Performed By: #### L 100.0100 ####[facility] [address] [place], [address] Platelet mean volume (Bld) [Entitic vol] 10.5 fL Normal 6.2-12.0 [facility] Comment on above: Performed By: #### L 100.0100 ####[facility] [address] [place], [address] Platelets (Bld) [#/Vol] 234 10*3/uL Normal 150-450 [facility] Comment on above: Performed By: #### L 100.0100 ####[facility] [address] [place], [address] RBC (Bld) [#/Vol] 2.85 10*6/uL Low 4.6-6.2 [facility] Comment on above: Performed By: #### L 100.0100 ####[facility] [address] [place], [address] RDW SD 53.4 fl High 35.1-43.9 [facility] Comment on above: Performed By: #### L 100.0100 ####[facility] [address] [place], [address] WBC (Bld) [#/Vol] 7.8 10*3/uL Normal 4.4-11.0 [facility] Comment on above: Performed By: #### L 100.0100 ####[facility] [address] [place], [address] Basic Metabolic Profile (BMP )on 08-30-2024 BUN/CRE 11.0 RATIO Normal 10-20 [facility] Comment on above: Performed By: #### L 500.2500, L100.0100 ####[facility] [address] [place], [address] Calcium [Mass/Vol] 8.7 mg/dL Normal 7.6-11.0 [facility] Comment on above: Performed By: #### L 500.2500, L100.0100 ####[facility] [address] [place], [address] Chloride [Moles/Vol] 92 mmol/L Low 98-108 [facility] Comment on above: Performed By: #### L 500.2500, L100.0100 ####[facility] [address] [place], [address] CO2 [Moles/Vol] 27.5 mmol/L Normal 21.0-32.0 [facility] Comment on above: Performed By: #### L 500.2500, L100.0100 ####[facility] [address] [place], [address] Creatinine [Mass/Vol] 5.42 mg/dL High 0.70-1.20 [facility] Comment on above: Performed By: #### L 500.2500, L100.0100 ####[facility] [address] [place], [address] ECRCL 12.64 ml/min Low 50-250 [facility] Comment on above: Performed By: #### L 500.2500, L100.0100 ####[facility] [address] [place], [address] GAP 14 Normal 5-15 [facility] Comment on above: Performed By: #### L 500.2500, L100.0100 ####[facility] [address] [place], [address] GFR/1.73 sq M.predicted among non-blacks MDRD (S/P/Bld) [Vol rate/Area] 10 mL/min/{1.73_m2} Low >60 [facility] Comment on above: Result Comment: mL/m in/1.73m2 CKD-EPI Creatinine Equation (2020) Performed By: #### L 500.2500, L100.0100 ####[facility] [address] [place], [address] Glucose [Mass/Vol] 196 mg/dL High 70-99 [facility] Comment on above: Performed By: #### L 500.2500, L100.0100 ####[facility] [address], [address] Potassium [Moles/Vol] 5.2 mmol/L High 3.3-5.1 [facility] Comment on above: Performed By: #### L 500.2500, L100.0100 ####[facility] [address] [place], [address] Sodium [Moles/Vol] 134 mmol/L Normal 133-145 [facility] Comment on above: Performed By: #### L 500.2500, L100.0100 ####[facility] [address] [place], [address] Urea nitrogen [Mass/Vol] 60 mg/dL High 4-19 [facility] Comment on above: Performed By: #### L 500.2500, L100.0100 ####[facility] [address] [place], [address] Bedside Glucoseon 08-30-2024 FINGERSTICK GLU 285 mg/dL High 74-106 [facility] Comment on above: Result Comment: FANG GEMENT OF PATIENT CARE PER NURSING PROTOCOL Performed By: #### L 501.080 ####[facility] [address], [address] FINGERSTICK GLU 287 mg/dL High 74-106 [facility] Comment on above: Result Comment: FANG GEMENT OF PATIENT CARE PER NURSING PROTOCOL Performed By: #### L 501.080 ####[facility] [address] [place], [address] FINGERSTICK GLU 192 mg/dL High 74-106 [facility] Comment on above: Result Comment: FANG GEMENT OF PATIENT CARE PER NURSING PROTOCOL Performed By: #### L 501.080 ####[facility] [address] [place], [address] FINGERSTICK GLU 195 mg/dL High -[address] [place] [address] Comment on above: Result Comment: FANG GEMENT OF PATIENT CARE PER NURSING PROTOCOL Performed By: #### L 501.080 ####[facility] [address] [place], [address] CBC W/Diff, Automatedon 04-1 0-2025 Absolute Lymph 1.31 X10 3/uL Normal 0.83-4.51 [facility] Comment on above: Performed By: #### L 500.2500, L100.0100 ####[facility] [address] [place], [address] Absolute Neut 7.1 X10 3/uL Normal 2.0-7.7 [facility] Comment on above: Performed By: #### L 500.2500, L100.0100 ####[facility] [address] [place], [address] Basophils/100 WBC (Bld) 0.5 % Normal 0-1 [facility] Comment on above: Performed By: #### L 500.2500, L100.0100 ####[facility] [address] [place], [address] Eosinophils/100 WBC (Bld) 0.9 % Normal 0-5 [facility] Comment on above: Performed By: #### L 500.2500, L100.0100 ####[facility] [address] [place], [address] Erythrocyte distribution width (RBC) [Ratio] 16.3 % High 11.6-14.6 [facility] Comment on above: Performed By: #### L 500.2500, L100.0100 ####[facility] [address] [place], [address] Hematocrit (Bld) [Volume fraction] 26.9 % Low 40-54 [facility] Comment on above: Performed By: #### L 500.2500, L100.0100 ####[facility] [address] [place], [address] Hemoglobin (Bld) [Mass/Vol] 7.9 g/dL Low 13.0-16.5 [facility] Comment on above: Performed By: #### L 500.2500, L100.0100 ####[facility] [address] [place], [address] IG% 0.600 Normal 0.0-0.9 [facility] Comment on above: Result Comment: IG% - Immature Granulocytes (promyelocytes, myelocytes andmetamyelocytes) > 1% indicates that a LEFT SHIFT is Present. Performed By: #### L 500.2500, L100.0100 ####[facility] [address] [place], [address] Lymphocytes/100 WBC (Bld) 13.4 % Low 19-41 [facility] Comment on above: Performed By: #### L 500.2500, L100.0100 ####[facility] [address] [place], [address] MCH (RBC) [Entitic mass] 26.8 pg Low 27.0-32.0 [facility] Comment on above: Performed By: #### L 500.2500, L100.0100 ####[facility] [address] [place], [address] MCHC (RBC) [Mass/Vol] 29.4 g/dL Low 32-36 [facility] Comment on above: Performed By: #### L 500.2500, L100.0100 ####[facility] [address] [place], [address] MCV (RBC) [Entitic vol] 91.2 fL Normal 80-94 [facility] Comment on above: Performed By: #### L 500.2500, L100.0100 ####[facility] [address] [place], [address] Monocytes/100 WBC (Bld) 12.2 % High 0-10 [facility] Comment on above: Performed By: #### L 500.2500, L100.0100 ####[facility] [address] [place], [address] Neutrophils/100 WBC (Bld) 72.4 % High 47-70 [facility] Comment on above: Performed By: #### L 500.2500, L100.0100 ####[facility] [address] [place], [address] Nucleated RBC (Bld) [#/Vol] 0 10*3/uL Normal 0-5 [facility] Comment on above: Performed By: #### L 500.2500, L100.0100 ####[facility] [address] [place], [address] Platelet mean volume (Bld) [Entitic vol] 10.7 fL Normal 6.2-12.0 [facility] Comment on above: Performed By: #### L 500.2500, L100.0100 ####[facility] [address] [place], [address] Platelets (Bld) [#/Vol] 279 10*3/uL Normal 150-450 [facility] Comment on above: Performed By: #### L 500.2500, L100.0100 ####[facility] [address] [place], [address] RBC (Bld) [#/Vol] 2.95 10*6/uL Low 4.6-6.2 [facility] Comment on above: Performed By: #### L 500.2500, L100.0100 ####[facility] [address] [place], [address] RDW SD 54.3 fl High 35.1-43.9 [facility] Comment on above: Performed By: #### L 500.2500, L100.0100 ####[facility] [address] [place], [address] WBC (Bld) [#/Vol] 9.8 10*3/uL Normal 4.4-11.0 [facility] Comment on above: Performed By: #### L 500.2500, L100.0100 ####[facility] [address] [place], [address] Consultation - Nephrologyon 08-30-2024 Consultation - Nephrology Normal [facility] Vancomycin, Random Levelon 0 08-30-2024 VANCO, RANDOM 12.3 ug/mL Normal 0.0-15.0 [facility] Comment on above: Result Comment: VANC OMYCIN STANDARD DRUG THERAPY: CRITICAL VALUE IS > 15.0 mg/LVANCOMYCIN HIGH INTENSITY THERAPY: CRITICAL VALUE IS > 20.0 mg/LPLEASE CONTACT PHARMACY SERVICES (#2705) FOR INTERPRETATIONOF RESULTS. THIS RESULT DOES NOT REPRESENT A PEAK OR TROUGHLEVEL FOR THIS DRUG. Performed By: #### L 501.8850 ####[facility] [address] [place], [address] Bedside Glucoseon 08-29-2024 FINGERSTICK GLU 218 mg/dL High [address] [place] [address] Comment on above: Result Comment: FAGN GEMENT OF PATIENT CARE PER NURSING PROTOCOL Performed By: #### L 501.080 ####[facility] [address] [place], [address] FINGERSTICK GLU 236 mg/dL High [address] [place] [address] Comment on above: Result Comment: FANG GEMENT OF PATIENT CARE PER NURSING PROTOCOL Performed By: #### L 501.080 ####[facility] [address] [place], [address] FINGERSTICK GLU 220 mg/dL High [address] [place] [address] Comment on above: Result Comment: FANG GEMENT OF PATIENT CARE PER NURSING PROTOCOL Performed By: #### L 501.080 ####[facility] [address] [place], [address] FINGERSTICK GLU 175 mg/dL High [address] [place] [address] Comment on above: Result Comment: FANG GEMENT OF PATIENT CARE PER NURSING PROTOCOL Performed By: #### L 501.080 ####[facility] [address] [place], [address] Decalcification bone/plaqueo n 08-29-2024 Decalcification bone/plaque Normal [facility] Comment on above: Performed By: #### P DEC ####[facility] [address] [place], [address] H AND P Exam - Surgicalon H&P Exam - Surgical Normal [facility] MR/POSTOP.ANEon 08-29-2024 MR/POSTOP.ANE Normal [facility] MR/[id number] 08-29-2024 MR/POSTOPAN2 Normal [facility] Operative Reporton Operative Report Normal [facility] BRCon 08-28-2024 RC Normal [facility] Comment on above: Result Comment: [id number] RC XM COMPATIBLE Performed By: #### B TSPAT, L500.2500, [facility], L100.0500 ####[facility] [address] 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, [address] Glucose [Mass/Vol] 93 mg/dL Normal 70-99 [facility] Comment on above: Order Comment: 400.1 Amputation Below Knee (Right) Performed By: #### B TSPAT, L500.2500, [facility], L100.0500 ####[facility] [address] [place], [address] Potassium [Moles/Vol] 4.4 mmol/L Normal 3.3-5.1 [facility] Comment on above: Order Comment: 400.1 Amputation Below Knee (Right) Performed By: #### B TSPAT, L500.2500, [facility], L100.0500 ####[facility] [address] [place], [address] Sodium [Moles/Vol] 134 mmol/L Normal 133-145 [facility] Comment on above: Order Comment: 400.1 Amputation Below Knee (Right) Performed By: #### B TSPAT, L500.2500, [facility], L100.0500 ####[facility] [address] [place], [address] Urea nitrogen [Mass/Vol] 76 mg/dL High 4-19 [facility] Comment on above: Order Comment: 400.1 Amputation Below Knee (Right) Performed By: #### B TSPAT, L500.2500, [facility], L100.0500 ####[facility] [address] [place], [address] CBC-Complete Blood Cnt No Di ffon 08-28-2024 Erythrocyte distribution width (RBC) [Ratio] 16.2 % High 11.6-14.6 [facility] [facility] Comment on above: Order Comment: 400.1 Performed By: #### B TSPAT, L500.2500, BRC, L100.0500 ####[facility] [address] [place], [address] Hematocrit (Bld) [Volume fraction] 30.6 % Low 40-54 [facility] Comment on above: Order Comment: 400.1 Performed By: #### B TSPAT, L500.2500, BR, L100.0500 ####[facility] [address] [place], [address] Hemoglobin (Bld) [Mass/Vol] 9.1 g/dL Low 13.0-16.5 [facility] Comment on above: Order Comment: 400.1 Performed By: #### B TSPAT, L500.2500, BRC, L100.0500 ####[facility] [address] [place], [address] MCH (RBC) [Entitic mass] 26.9 pg Low 27.0-32.0 [facility] Comment on above: Order Comment: 400.1 Performed By: #### B TSPAT, L500.2500, BRC, L100.0500 ####[facility] [address] [place], [address] MCHC (RBC) [Mass/Vol] 29.7 g/dL Low 32-36 [facility] Comment on above: Order Comment: 400.1 Performed By: #### Too TSPAT, L500.2500, BRC, L100.0500 ####[facility] [address] [place], [address] MCV (RBC) [Entitic vol] 90.5 fL Normal 80-94 [facility] Comment on above: Order Comment: 400.1 Performed By: #### B TSPAT, L500.2500, BR, L100.0500 ####[facility] [address] [place], [address] Platelet mean volume (Bld) [Entitic vol] 10.5 fL Normal 6.2-12.0 [facility] Comment on above: Order Comment: 400.1 Performed By: #### Too TSPAT, L500.2500, [facility], L100.0500 ####[facility] [address] [place], [address] Platelets (Bld) [#/Vol] 321 10*3/uL Normal 150-450 [facility] Comment on above: Order Comment: 400.1 Performed By: #### Too TSPAT, L500.2500, BRC, L100.0500 ####[facility] [address] [place], [address] RBC (Bld) [#/Vol] 3.38 10*6/uL Low 4.6-6.2 [facility] Comment on above: Order Comment: 400.1 Performed By: #### Too TSPAT, L500.2500, BRC, L100.0500 ####[facility] [address] [place], [address] RDW SD 53.1 fl High 35.1-43.9 [facility] Comment on above: Order Comment: 400.1 Performed By: #### B TSPAT, L500.2500, [facility], L100.0500 ####[facility] [address] [place], [address] WBC (Bld) [#/Vol] 9.5 10*3/uL Normal 4.4-11.0 [facility] Comment on above: Order Comment: 400.1 Performed By: #### B TSPAT, L500.2500, [facility], L100.0500 ####[facility] [address] [place], [address] MR/PAT.ANEon 08-28-2024 MR/PAT.ANE Normal [facility] Type AND Screen - PAT ONLYon 08-28-2024 Ab SCREEN GEL Negative Normal [facility] Comment on above: Order Comment: SURGE RY DATE 08/29/2024 Amputation Below Knee (Right)[id number] Below Knee (Right)[id number] Below Knee (Right)TURNEYOTHER Performed By: #### B TSPAT, L500.2500, [facility], L100.0500 ####[facility] [address] [place], [address] Absolute lymphocyte countOrd ered By: Nadno Wiggins on 08-27-2024 Lymphocytes Auto (Unsp spec) [#/Vol] 1.45 10*3/uL 0.83-4.51 [facility] Anion gap in Serum or Plasma Ordered By: Nando Wiggins on 08-27-2024 Anion gap [Moles/Vol] 15 mmol/L 5-15 [facility] Automated lymphocyte count a s percentage of total leukocytesOrdered By: Nando Wiggins on 08-27-2024 Lymphocytes/100 WBC Auto (Unsp spec) 16.0 % Low 19-41 [facility] BUN/creatinine ratioOrdered By: Nando Wiggins on 08-27-2024 Urea nitrogen/Creatinine [Mass ratio] 10.5 mg/mg 10-20 [facility] Basophil percentageOrdered B y: Nando Wiggins on 08-27-2024 Basophils/100 WBC (Bld) 0.6 % 0-1 [facility] Carbon dioxide, total [Moles /volume] in Central venous bloodOrdered By: Nando Wiggins on 08-27-2024 CO2 [Moles/Vol] 26.5 mmol/L 21.0-32.0 [facility] Chloride assayOrdered By: Kathie Wiggins on 08-27-2024 Chloride [Moles/Vol] 94 mmol/L Low 98-108 [facility] Eosinophil percentageOrdered By: Nando Wiggins on 08-27-2024 Eosinophils/100 WBC (Bld) 2.3 % 0-5 [facility] Erythrocyte distribution wid th ratioOrdered By: Nando Wiggins on 08-27-2024 Erythrocyte distribution width (RBC) [Ratio] 16.3 % High 11.6-14.6 [facility] Erythrocyte distribution wid th standard deviationOrdered By: Nando Wiggins on 08-27-2024 Erythrocyte distribution width (RBC) [Ratio] 54.3 fl High 35.1-43.9 [facility] Glomerular filtration rate ( GFR) estimation/1.73 sq m using serum, plasma, or whole bOrdered By: Nando Wiggins on 08-27-2024 GFR/1.73 sq M.predicted among non-blacks MDRD (S/P/Bld) [Vol rate/Area] 10 mL/min/{1.73_m2} Low >60 [facility] Hematocrit Auto (Bld) [Volum e fraction]Ordered By: Nando Wiggins on 08-27-2024 Hematocrit (Bld) [Volume fraction] 30.4 % Low 40-54 [facility] Hemoglobin measurementOrdere d By: Nando Wiggins 08-27-2024 Hemoglobin (Bld) [Mass/Vol] 9.0 g/dL Low 13.0-16.5 [facility] Immature granulocytes/100 WB C Auto (Bld)Ordered By: Nando Wiggins on 08-27-2024 Immature granulocytes/100 WBC (Bld) 0.700 % 0.0-0.9 [facility] MCV (mean corpuscular volume ) determinationOrdered By: Nando Wiggins on 08-27-2024 MCV (RBC) [Entitic vol] 91.3 fL 80-94 [facility] Mean corpuscular hemoglobin (MCH) determinationOrdered By: Nando Wiggins on 08-27-2024 MCH (RBC) [Entitic mass] 27.0 pg 27.0-32.0 [facility] Monocyte percentageOrdered B y: Nando Wiggins on 08-27-2024 Monocytes/100 WBC (Bld) 10.7 % High 0-10 [facility] Neutrophil percentageOrdered By: Nando Wiggins on 08-27-2024 Neutrophils/100 WBC (Bld) 69.7 % 47-70 [facility] Platelet countOrdered By: Kathie Wiggins on 08-27-2024 Platelets (Bld) [#/Vol] 300 10*3/uL 150-450 [facility] Potassium measurement (mass/ volume)Ordered By: Nando Wiggins on 08-27-2024 Potassium (Unsp spec) [Mass/Vol] 3.7 mmol/L 3.3-5.1 [facility] RBC Auto (Bld) [#/Vol]Ordere d By: Nando Wiggins on 08-27-2024 RBC (Bld) [#/Vol] 3.33 10*6/uL Low 4.6-6.2 [facility] Serum creatinine measurement (mass/volume)Ordered By: Nando Wiggins on 08-27-2024 Creatinine [Mass/Vol] 5.29 mg/dL High 0.70-1.20 [facility] Serum glucose measurement (m ass/volume)Ordered By: Nando Wiggins on 08-27-2024 Glucose [Mass/Vol] 261 mg/dL High 70-99 [facility] Serum or plasma calcium lilli urement (mass/volume)Ordered By: Nando Wiggins on 08-27-2024 Calcium [Mass/Vol] 8.8 mg/dL 7.6-11.0 [facility] Serum or plasma urea nitroge n measurement (mass/volume)Ordered By: Nando Wiggins on 08-27-2024 Urea nitrogen [Mass/Vol] 55 mg/dL High 4-19 [facility] Sodium levelOrdered By: Kathiebianca quintana Meeklakshmidesiree on 08-27-2024 Sodium [Moles/Vol] 135 mmol/L 133-145 [facility] White blood cell (WBC) count Ordered By: Deblilian Meeklakshmidesiree on 08-27-2024 WBC (Bld) [#/Vol] 9.0 10*3/uL 4.4-11.0 [facility] Absolute lymphocyte countOrd ered By: Nando Edenlakshmidesiree on 08-20-2024 Lymphocytes Auto (Unsp spec) [#/Vol] 2.15 10*3/uL 0.83-4.51 [facility] Anion gap in Serum or Plasma Ordered By: Nando Edenlakshmidesiree on 08-20-2024 Anion gap [Moles/Vol] 15 mmol/L 5-15 [facility] Automated lymphocyte count a s percentage of total leukocytesOrdered By: Nando Edenlakshmidesiree on 08-20-2024 Lymphocytes/100 WBC Auto (Unsp spec) 25.2 % 19-41 [facility] BUN/creatinine ratioOrdered By: Nando Edenlakshmidesiree on 08-20-2024 Urea nitrogen/Creatinine [Mass ratio] 12.6 mg/mg 10-20 [facility] Basophil percentageOrdered B y: Nando Edenlakshmidesiree on 08-20-2024 Basophils/100 WBC (Bld) 0.8 % 0-1 [facility] Carbon dioxide, total [Moles /volume] in Central venous bloodOrdered By: Nando Wiggins on 08-20-2024 CO2 [Moles/Vol] 26.9 mmol/L 21.0-32.0 [facility] Chloride assayOrdered By: Kathie biancalilian Wiggins on 08-20-2024 Chloride [Moles/Vol] 93 mmol/L Low 98-108 [facility] Eosinophil percentageOrdered By: Nando Edenlakshmidesiree on 08-20-2024 Eosinophils/100 WBC (Bld) 2.2 % 0-5 [facility] Erythrocyte distribution wid th ratioOrdered By: Nando Wiggins on 08-20-2024 Erythrocyte distribution width (RBC) [Ratio] 16.0 % High 11.6-14.6 [facility] Erythrocyte distribution wid th standard deviationOrdered By: Nando Wiggins on 08-20-2024 Erythrocyte distribution width (RBC) [Ratio] 54.5 fl High 35.1-43.9 [facility] Glomerular filtration rate ( GFR) estimation/1.73 sq m using serum, plasma, or whole bOrdered By: Nando Wiggins on 08-20-2024 GFR/1.73 sq M.predicted among non-blacks MDRD (S/P/Bld) [Vol rate/Area] 12 mL/min/{1.73_m2} Low >60 [facility] Hematocrit Auto (Bld) [Volum e fraction]Ordered By: Nando Wiggins on 08-20-2024 Hematocrit (Bld) [Volume fraction] 30.9 % Low 40-54 [facility] Hemoglobin measurementOrdere d By: Nando Wiggins on 08-20-2024 Hemoglobin (Bld) [Mass/Vol] 9.2 g/dL Low 13.0-16.5 [facility] Immature granulocytes/100 WB C Auto (Bld)Ordered By: Nando Wiggins on 08-20-2024 Immature granulocytes/100 WBC (Bld) 0.800 % 0.0-0.9 [facility] MCV (mean corpuscular volume ) determinationOrdered By: Nando Wiggins on 08-20-2024 MCV (RBC) [Entitic vol] 92.2 fL 80-94 [facility] Mean corpuscular hemoglobin (MCH) determinationOrdered By: Nando Wiggins on 08-20-2024 MCH (RBC) [Entitic mass] 27.5 pg 27.0-32.0 [facility] Monocyte percentageOrdered B y: Nando Wiggins on 08-20-2024 Monocytes/100 WBC (Bld) 8.3 % 0-10 [facility] Neutrophil percentageOrdered By: Nando Wiggins on 08-20-2024 Neutrophils/100 WBC (Bld) 62.7 % 47-70 [facility] Platelet countOrdered By: Kathie Edenghe on 08-20-2024 Platelets (Bld) [#/Vol] 321 10*3/uL 150-450 [facility] Potassium measurement (mass/ volume)Ordered By: Nando Edenlakshmidesiree on 08-20-2024 Potassium (Unsp spec) [Mass/Vol] 4.1 mmol/L 3.3-5.1 [facility] RBC Auto (Bld) [#/Vol]Ordere d By: Debsrinathwolf Edenlakshmidesiree on 08-20-2024 RBC (Bld) [#/Vol] 3.35 10*6/uL Low 4.6-6.2 [facility] Serum creatinine measurement (mass/volume)Ordered By: Nando Edenlakshmidesiree on 08-20-2024 Creatinine [Mass/Vol] 4.37 mg/dL High 0.70-1.20 [facility] Serum glucose measurement (m ass/volume)Ordered By: Nando Wiggins on 08-20-2024 Glucose [Mass/Vol] 85 mg/dL 70-99 [facility] Serum or plasma calcium lilli urement (mass/volume)Ordered By: Debsrinathwolf Edenlakshmidesiree on 08-20-2024 Calcium [Mass/Vol] 9.3 mg/dL 7.6-11.0 [facility] Serum or plasma urea nitroge n measurement (mass/volume)Ordered By: Nando Edenlakshmidesriee on 08-20-2024 Urea nitrogen [Mass/Vol] 55 mg/dL High 4-19 [facility] Sodium levelOrdered By: Deb lilian Rosalie on 08-20-2024 Sodium [Moles/Vol] 134 mmol/L 133-145 [facility] White blood cell (WBC) count Ordered By: Nando Edenlakshmidesiree on 08-20-2024 WBC (Bld) [#/Vol] 8.5 10*3/uL 4.4-11.0 [facility] Absolute lymphocyte countOrd ered By: Debsrinathwolf Edenlakshmidesiree on 08-13-2024 Lymphocytes Auto (Unsp spec) [#/Vol] 1.80 10*3/uL 0.83-4.51 [facility] Anion gap in Serum or Plasma Ordered By: Nando Wiggins on 08-13-2024 Anion gap [Moles/Vol] 15 mmol/L 5-15 [facility] Automated lymphocyte count a s percentage of total leukocytesOrdered By: Nando Wiggins on 08-13-2024 Lymphocytes/100 WBC Auto (Unsp spec) 22.5 % 19-41 [facility] BUN/creatinine ratioOrdered By: Nando Wiggins on 08-13-2024 Urea nitrogen/Creatinine [Mass ratio] 8.8 mg/mg Low 10-20 [facility] Basophil percentageOrdered B y: Nando Wiggins on 08-13-2024 Basophils/100 WBC (Bld) 0.5 % 0-1 [facility] Bilirubin directOrdered By: Nando Wiggins on 08-13-2024 Bilirubin.direct [Mass/Vol] mg/dL 0.00-0.30 [facility] Bilirubin, totalOrdered By: Nando Wiggins on 08-13-2024 Bilirubin [Mass/Vol] 0.25 mg/dL 0.00-1.30 [facility] Carbon dioxide, total [Moles /volume] in Central venous bloodOrdered By: Nando Wiggins on 08-13-2024 CO2 [Moles/Vol] 25.2 mmol/L 21.0-32.0 [facility] Chloride assayOrdered By: Kathie Wiggins on 08-13-2024 Chloride [Moles/Vol] 94 mmol/L Low 98-108 [facility] Eosinophil percentageOrdered By: Nando Wiggins on 08-13-2024 Eosinophils/100 WBC (Bld) 2.6 % 0-5 [facility] Erythrocyte distribution wid th ratioOrdered By: Nando Wiggins on 08-13-2024 Erythrocyte distribution width (RBC) [Ratio] 16.8 % High 11.6-14.6 [facility] Erythrocyte distribution wid th standard deviationOrdered By: Nando Wiggins on 08-13-2024 Erythrocyte distribution width (RBC) [Ratio] 57.7 fl High 35.1-43.9 [facility] Glomerular filtration rate ( GFR) estimation/1.73 sq m using serum, plasma, or whole bOrdered By: Nando Wiggins on 08-13-2024 GFR/1.73 sq M.predicted among non-blacks MDRD (S/P/Bld) [Vol rate/Area] 13 mL/min/{1.73_m2} Low >60 [facility] Hematocrit Auto (Bld) [Volum e fraction]Ordered By: Nando Wiggins on 08-13-2024 Hematocrit (Bld) [Volume fraction] 28.8 % Low 40-54 [facility] Hemoglobin A1c percentageOrd ered By: Nando Wiggins on 08-13-2024 HbA1c (Bld) [Mass fraction] 6.1 % >5.7 [facility] Hemoglobin measurementOrdere d By: Nando Wiggins on 08-13-2024 Hemoglobin (Bld) [Mass/Vol] 8.6 g/dL Low 13.0-16.5 [facility] Immature granulocytes/100 WB C Auto (Bld)Ordered By: Nando Wiggins on 08-13-2024 Immature granulocytes/100 WBC (Bld) 0.400 % 0.0-0.9 [facility] MCV (mean corpuscular volume ) determinationOrdered By: Nando Wiggins on 08-13-2024 MCV (RBC) [Entitic vol] 94.4 fL High 80-94 [facility] Mean corpuscular hemoglobin (MCH) determinationOrdered By: Nando Wiggins on 08-13-2024 MCH (RBC) [Entitic mass] 28.2 pg 27.0-32.0 [facility] Monocyte percentageOrdered B y: Nando Wiggins on 08-13-2024 Monocytes/100 WBC (Bld) 10.7 % High 0-10 [facility] Neutrophil percentageOrdered By: Nando Wiggins on 08-13-2024 Neutrophils/100 WBC (Bld) 63.3 % 47-70 [facility] No Panel InformationOrdered By: Nando Wiggins on 08-13-2024 18 U/L <38 [facility] Platelet countOrdered By: Kathie Wiggins on 08-13-2024 Platelets (Bld) [#/Vol] 265 10*3/uL 150-450 [facility] Potassium measurement (mass/ volume)Ordered By: Nando Wiggins on 08-13-2024 Potassium (Unsp spec) [Mass/Vol] 3.9 mmol/L 3.3-5.1 [facility] RBC Auto (Bld) [#/Vol]Ordere d By: Nando Wiggins on 08-13-2024 RBC (Bld) [#/Vol] 3.05 10*6/uL Low 4.6-6.2 [facility] Serum creatinine measurement (mass/volume)Ordered By: Nando Wiggins on 08-13-2024 Creatinine [Mass/Vol] 4.28 mg/dL High 0.70-1.20 [facility] Serum globulin measurementOr dered By: Nando Wiggins on 08-13-2024 Globulin (S) [Mass/Vol] 3.8 g/dL 2.2-4.2 [facility] Serum glucose measurement (m ass/volume)Ordered By: Nando Wiggins on 08-13-2024 Glucose [Mass/Vol] 96 mg/dL 70-99 [facility] Serum or plasma alanine hawkins otransferase (ALT) measurementOrdered By: Nando Wiggins on 08-13-2024 ALT [Catalytic activity/Vol] 8 U/L <47 [facility] Serum or plasma albumin lilli urement (mass/volume)Ordered By: Nando Wiggins on 08-13-2024 Albumin [Mass/Vol] 2.8 g/dL Low 3.4-4.8 [facility] Serum or plasma alkaline penelope sphatase measurementOrdered By: Nando Wiggins on 08-13-2024 ALP [Catalytic activity/Vol] 56 U/L 40-129 [facility] Serum or plasma calcium lilli urement (mass/volume)Ordered By: Nando Wiggins on 08-13-2024 Calcium [Mass/Vol] 9.0 mg/dL 7.6-11.0 [facility] Serum or plasma urea nitroge n measurement (mass/volume)Ordered By: Nando Wiggins on 08-13-2024 Urea nitrogen [Mass/Vol] 38 mg/dL High 4-19 [facility] Sodium levelOrdered By: Deb quintana Meekcheko on 08-13-2024 Sodium [Moles/Vol] 134 mmol/L 133-145 [facility] Total proteinOrdered By: Sinan schmidt Meeklakshmidesiree on 08-13-2024 Protein [Mass/Vol] 6.6 g/dL 5.9-8.4 [facility] Vitamin B12 ser/plasOrdered By: Nando Meekcheko on 08-13-2024 Cobalamin (Vitamin B12) [Mass/Vol] 782 pg/mL 180-914 [facility] White blood cell (WBC) count Ordered By: Kathiebiancalilian Meeklakshmidesiree on 08-13-2024 WBC (Bld) [#/Vol] 8.0 10*3/uL 4.4-11.0 [facility] Absolute lymphocyte countOrd ered By: Nando Meekcheko on 08-06-2024 Lymphocytes Auto (Unsp spec) [#/Vol] 1.82 10*3/uL 0.83-4.51 [facility] Anion gap in Serum or Plasma Ordered By: Kathiebiancalilian Meeklakshmidesiree on 08-06-2024 Anion gap [Moles/Vol] 14 mmol/L 5-15 [facility] Automated lymphocyte count a s percentage of total leukocytesOrdered By: Kathieibancasrinathwolf Wiggins on 08-06-2024 Lymphocytes/100 WBC Auto (Unsp spec) 19.7 % 19-41 [facility] BUN/creatinine ratioOrdered By: Kathiebiancalilian Meeklakshmidesiree on 08-06-2024 Urea nitrogen/Creatinine [Mass ratio] 11.0 mg/mg 10-20 [facility] Basophil percentageOrdered B y: Kathiebiancasrinathwolf Edenlakshmidesiree on 08-06-2024 Basophils/100 WBC (Bld) 0.4 % 0-1 [facility] Carbon dioxide, total [Moles /volume] in Central venous bloodOrdered By: Kathiefili Wiggins on 08-06-2024 CO2 [Moles/Vol] 26.0 mmol/L 21.0-32.0 [facility] Chloride assayOrdered By: Kathie Wiggins on 08-06-2024 Chloride [Moles/Vol] 92 mmol/L Low 98-108 [facility] Eosinophil percentageOrdered By: Nando Wiggins on 08-06-2024 Eosinophils/100 WBC (Bld) 2.6 % 0-5 [facility] Erythrocyte distribution wid th ratioOrdered By: Nando Wiggins on 08-06-2024 Erythrocyte distribution width (RBC) [Ratio] 16.6 % High 11.6-14.6 [facility] Erythrocyte distribution wid th standard deviationOrdered By: Nando Wiggins on 08-06-2024 Erythrocyte distribution width (RBC) [Ratio] 56.6 fl High 35.1-43.9 [facility] Glomerular filtration rate ( GFR) estimation/1.73 sq m using serum, plasma, or whole bOrdered By: Nando Wiggins on 08-06-2024 GFR/1.73 sq M.predicted among non-blacks MDRD (S/P/Bld) [Vol rate/Area] 12 mL/min/{1.73_m2} Low >60 [facility] Hematocrit Auto (Bld) [Volum e fraction]Ordered By: Nando Wiggins on 08-06-2024 Hematocrit (Bld) [Volume fraction] 27.3 % Low 40-54 [facility] Hemoglobin measurementOrdere d By: Nando Wiggins on 08-06-2024 Hemoglobin (Bld) [Mass/Vol] 8.1 g/dL Low 13.0-16.5 [facility] Immature granulocytes/100 WB C Auto (Bld)Ordered By: Nando Wiggins on 08-06-2024 Immature granulocytes/100 WBC (Bld) 1.000 % High 0.0-0.9 [facility] MCV (mean corpuscular volume ) determinationOrdered By: Nando Wiggins 08-06-2024 MCV (RBC) [Entitic vol] 93.5 fL 80-94 [facility] Mean corpuscular hemoglobin (MCH) determinationOrdered By: Nando Wiggins 08-06-2024 MCH (RBC) [Entitic mass] 27.7 pg 27.0-32.0 [facility] Monocyte percentageOrdered B y: Nando Wiggins on 08-06-2024 Monocytes/100 WBC (Bld) 12.1 % High 0-10 [facility] Neutrophil percentageOrdered By: Nando Wiggins on 08-06-2024 Neutrophils/100 WBC (Bld) 64.2 % 47-70 [facility] Platelet countOrdered By: Kathie fili Meekcheko on 08-06-2024 Platelets (Bld) [#/Vol] 263 10*3/uL 150-450 [facility] Potassium measurement (mass/ volume)Ordered By: Kathiebiancasrinathwolf Edenlakshmidesiree on 08-06-2024 Potassium (Unsp spec) [Mass/Vol] 3.4 mmol/L 3.3-5.1 [facility] RBC Auto (Bld) [#/Vol]Ordere d By: Nando Meekcheko on 08-06-2024 RBC (Bld) [#/Vol] 2.92 10*6/uL Low 4.6-6.2 [facility] Serum creatinine measurement (mass/volume)Ordered By: Kathiebiancalilian Meeklakshmidesiree on 08-06-2024 Creatinine [Mass/Vol] 4.43 mg/dL High 0.70-1.20 [facility] Serum glucose measurement (m ass/volume)Ordered By: Kathiebiancasrinathwolf Edenlakshmidesiree on 08-06-2024 Glucose [Mass/Vol] 318 mg/dL High 70-99 [facility] Serum or plasma calcium lilli urement (mass/volume)Ordered By: Kathiebiancasrinathwolf Edenlakshmidesiree on 08-06-2024 Calcium [Mass/Vol] 8.7 mg/dL 7.6-11.0 [facility] Serum or plasma urea nitroge n measurement (mass/volume)Ordered By: Kathiefili Edenlakshmidesiree on 08-06-2024 Urea nitrogen [Mass/Vol] 49 mg/dL High 4-19 [facility] Sodium levelOrdered By: Kathiebianca lilian Meeklakshmidesiree on 08-06-2024 Sodium [Moles/Vol] 131 mmol/L Low 133-145 [facility] White blood cell (WBC) count Ordered By: Nando Wiggins on 08-06-2024 WBC (Bld) [#/Vol] 9.3 10*3/uL 4.4-11.0 [facility] Absolute lymphocyte countOrd ered By: Des Urbanehne on 08-01-2024 Lymphocytes Auto (Unsp spec) [#/Vol] 1.79 10*3/uL 0.83-4.51 [facility] Automated blood erythrocyte countOrdered By: Des Garcia on 08-01-2024 RBC (Bld) [#/Vol] 2.95 10*6/uL Low 4.6-6.2 [facility] Comment on above: Performed By: #### L 100.0100 ####[facility] [address] [place], [address] Automated blood hematocrit ( percentage)Ordered By: Des Garcia on 08-01-2024 Hematocrit (Bld) [Volume fraction] 27.6 % Low 40-54 [facility] Comment on above: Performed By: #### L 100.0100 ####[facility] [address] [place], [address] Automated lymphocyte count a s percentage of total leukocytesOrdered By: Des Garcia on 08-01-2024 Lymphocytes/100 WBC Auto (Unsp spec) 20.9 % 19-41 [facility] Basophil percentageOrdered B y: Des Garcia on 08-01-2024 Basophils/100 WBC (Bld) 0.7 % Normal 0-1 [facility] Comment on above: Performed By: #### L 100.0100 ####[facility] [address] [place], [address] CBC W/Diff, Automatedon 07-21 Absolute Lymph 1.79 X10 3/uL Normal 0.83-4.51 [facility] Comment on above: Performed By: #### L 100.0100 ####[facility] [address] [place], [address] Absolute Neut 5.3 X10 3/uL Normal 2.0-7.7 [facility] Comment on above: Performed By: #### L 100.0100 ####[facility] [address] [place], [address] IG% 0.500 Normal 0.0-0.9 [facility] Comment on above: Result Comment: IG% - Immature Granulocytes (promyelocytes, myelocytes andmetamyelocytes) > 1% indicates that a LEFT SHIFT is Present. Performed By: #### L 100.0100 ####[facility] [address] [place], [address] Lymphocytes/100 WBC (Bld) 20.9 % Normal 19-41 [facility] Comment on above: Performed By: #### L 100.0100 ####[facility] [address] [place], [address] MCHC (RBC) [Mass/Vol] 29.3 g/dL Low 32-36 [facility] Comment on above: Performed By: #### L 100.0100 ####[facility] [address] [place], [address] Nucleated RBC (Bld) [#/Vol] 0 10*3/uL Normal 0-5 [facility] Comment on above: Performed By: #### L 100.0100 ####[facility] [address] [place], [address] Platelet mean volume (Bld) [Entitic vol] 10.6 fL Normal 6.2-12.0 [facility] Comment on above: Performed By: #### L 100.0100 ####[facility] [address] [place], [address] RDW SD 57.8 fl High 35.1-43.9 [facility] Comment on above: Performed By: #### L 100.0100 ####[facility] [address] [place], [place], [address] Emergency Department Summary on 08-01-2024 Emergency Department Summary Normal [facility] Eosinophil percentageOrdered By: Des Garcia on 08-01-2024 Eosinophils/100 WBC (Bld) 3.9 % Normal 0-5 [facility] Comment on above: Performed By: #### L 100.0100 ####[facility] [address] [place], [address] Erythrocyte distribution wid th ratioOrdered By: Des Garcia on 08-01-2024 Erythrocyte distribution width (RBC) [Ratio] 16.9 % High 11.6-14.6 [facility] Comment on above: Performed By: #### L 100.0100 ####[facility] [address] [place], [address] Erythrocyte distribution wid th standard deviationOrdered By: Des Garcia on 08-01-2024 Erythrocyte distribution width (RBC) [Ratio] 57.8 fl High 35.1-43.9 [facility] Foot min 3 Viewson 5 Foot min 3 Views Normal [facility] Hemoglobin measurementOrdere d By: Des Garcia on 08-01-2024 Hemoglobin (Bld) [Mass/Vol] 8.1 g/dL Low 13.0-16.5 [facility] Comment on above: Performed By: #### L 100.0100 ####[facility] [address] [place], [address] Immature granulocytes/100 WB C Auto (Bld)Ordered By: Des Garcia on 08-01-2024 Immature granulocytes/100 WBC (Bld) 0.500 % 0.0-0.9 [facility] MCV (mean corpuscular volume ) determinationOrdered By: Des Garcia on 08-01-2024 MCV (RBC) [Entitic vol] 93.6 fL Normal 80-94 [facility] Comment on above: Performed By: #### L 100.0100 ####[facility] [address] [place], [address] Mean corpuscular hemoglobin (MCH) determinationOrdered By: Des Garcia on 08-01-2024 MCH (RBC) [Entitic mass] 27.5 pg Normal 27.0-32.0 [facility] Comment on above: Performed By: #### L 100.0100 ####[facility] [address] [place], [address] Monocyte percentageOrdered B y: Des Garcia on 08-01-2024 Monocytes/100 WBC (Bld) 12.3 % High 0-10 [facility] Comment on above: Performed By: #### L 100.0100 ####[facility] [address] [place], [address] Neutrophil percentageOrdered By: Des Garcia on 08-01-2024 Neutrophils/100 WBC (Bld) 61.7 % Normal 47-70 [facility] Comment on above: Performed By: #### L 100.0100 ####[facility] [address] [place], [address] Platelet countOrdered By: Kana Garcia on 08-01-2024 Platelets (Bld) [#/Vol] 290 10*3/uL Normal 150-450 [facility] Comment on above: Performed By: #### L 100.0100 ####[facility] [address] [place], [address] White blood cell (WBC) count Ordered By: Des Garcia on 08-01-2024 WBC (Bld) [#/Vol] 8.6 10*3/uL Normal 4.4-11.0 [facility] Comment on above: Performed By: #### L 100.0100 ####[facility] [address] [place], [address] Absolute lymphocyte countOrd ered By: Nando Wiggins on 07-30-2024 Lymphocytes Auto (Unsp spec) [#/Vol] 1.74 10*3/uL 0.83-4.51 [facility] Anion gap in Serum or Plasma Ordered By: Nando Wiggins on 07-30-2024 Anion gap [Moles/Vol] 16 mmol/L High 5-15 [facility] Automated lymphocyte count a s percentage of total leukocytesOrdered By: Nando Wiggins on 07-30-2024 Lymphocytes/100 WBC Auto (Unsp spec) 19.2 % 19-41 [facility] BUN/creatinine ratioOrdered By: Nando Wiggins on 07-30-2024 Urea nitrogen/Creatinine [Mass ratio] 8.4 mg/mg Low 10-20 [facility] Basophil percentageOrdered B y: Nando Wiggins on 07-30-2024 Basophils/100 WBC (Bld) 0.6 % 0-1 [facility] Carbon dioxide, total [Moles /volume] in Central venous bloodOrdered By: Nando Wiggins on 07-30-2024 CO2 [Moles/Vol] 26.4 mmol/L 21.0-32.0 [facility] Chloride assayOrdered By: Kathie Wiggins on 07-30-2024 Chloride [Moles/Vol] 91 mmol/L Low 98-108 [facility] Eosinophil percentageOrdered By: Nando Wiggins on 07-30-2024 Eosinophils/100 WBC (Bld) 2.8 % 0-5 [facility] Erythrocyte distribution wid th ratioOrdered By: Nando Wiggins on 07-30-2024 Erythrocyte distribution width (RBC) [Ratio] 17.2 % High 11.6-14.6 [facility] Erythrocyte distribution wid th standard deviationOrdered By: Nando Wiggins on 07-30-2024 Erythrocyte distribution width (RBC) [Ratio] 58.1 fl High 35.1-43.9 [facility] Glomerular filtration rate ( GFR) estimation/1.73 sq m using serum, plasma, or whole bOrdered By: Nando Wiggins on 07-30-2024 GFR/1.73 sq M.predicted among non-blacks MDRD (S/P/Bld) [Vol rate/Area] 13 mL/min/{1.73_m2} Low >60 [facility] Hematocrit Auto (Bld) [Volum e fraction]Ordered By: Nando Wiggins on 07-30-2024 Hematocrit (Bld) [Volume fraction] 26.5 % Low 40-54 [facility] Hemoglobin measurementOrdere d By: Deblilian Meeklakshmidesiree on 07-30-2024 Hemoglobin (Bld) [Mass/Vol] 8.1 g/dL Low 13.0-16.5 [facility] Immature granulocytes/100 WB C Auto (Bld)Ordered By: Nando Wiggins on 07-30-2024 Immature granulocytes/100 WBC (Bld) 0.800 % 0.0-0.9 [facility] MCV (mean corpuscular volume ) determinationOrdered By: Nando Wiggins on 07-30-2024 MCV (RBC) [Entitic vol] 92.3 fL 80-94 [facility] Mean corpuscular hemoglobin (MCH) determinationOrdered By: Nando Wiggins on 07-30-2024 MCH (RBC) [Entitic mass] 28.2 pg 27.0-32.0 [facility] Monocyte percentageOrdered B y: Kathiebiancasrinathwolf Edenlakshmidesiree on 07-30-2024 Monocytes/100 WBC (Bld) 9.2 % 0-10 [facility] Neutrophil percentageOrdered By: Nando Edenlakshmidesiree on 07-30-2024 Neutrophils/100 WBC (Bld) 67.4 % 47-70 [facility] Platelet countOrdered By: Kathie fili Meeklakshmidesiree on 07-30-2024 Platelets (Bld) [#/Vol] 334 10*3/uL 150-450 [facility] Potassium measurement (mass/ volume)Ordered By: Kathieifli Wiggins on 07-30-2024 Potassium (Unsp spec) [Mass/Vol] 3.6 mmol/L 3.3-5.1 [facility] RBC Auto (Bld) [#/Vol]Ordere d By: Debsrinathwolf Edenlakshmidesiree on 07-30-2024 RBC (Bld) [#/Vol] 2.87 10*6/uL Low 4.6-6.2 [facility] Serum creatinine measurement (mass/volume)Ordered By: Nando Wiggins on 07-30-2024 Creatinine [Mass/Vol] 4.20 mg/dL High 0.70-1.20 [facility] Serum glucose measurement (m ass/volume)Ordered By: Nando Wiggins on 07-30-2024 Glucose [Mass/Vol] 173 mg/dL High 70-99 [facility] Serum or plasma calcium lilli urement (mass/volume)Ordered By: Nando Wiggins on 07-30-2024 Calcium [Mass/Vol] 8.5 mg/dL 7.6-11.0 [facility] Serum or plasma urea nitroge n measurement (mass/volume)Ordered By: Kathieaugusta [facility]iawolf Wiggins on 07-30-2024 Urea nitrogen [Mass/Vol] 35 mg/dL High 4-19 [facility] Sodium levelOrdered By: Deb Wiggins on 07-30-2024 Sodium [Moles/Vol] 133 mmol/L 133-145 [facility] White blood cell (WBC) count Ordered By: Nando Wiggins on 07-30-2024 WBC (Bld) [#/Vol] 9.1 10*3/uL 4.4-11.0 [facility] Acid Fast Bacillus Cultureon 07-25-2024 tAFBC Normal [facility] Comment on above: Performed By: #### M 100.3000, M600.2200, M300.2000, M100.4001, M300.3000, M100.2000, M600.1999 ####[facility] [address] [place], [place], [address] Acid Fast Bacillus Smear/Flu oron 07-25-2024 tafb Normal [facility] Comment on above: Performed By: #### M 100.3000, M600.2200, M300.2000, M100.4001, M300.3000, M100.2000, M600.1999 ####[facility] [address] [place], [place], [address] Culture, Fungus 8482on 07-25 CUF Normal [facility] Comment on above: Performed By: #### M 100.3000, M600.2200, M300.2000, M100.4001, M300.3000, M100.2000, M600.2000 ####[facility] [address] [place], [address] Fungus Stain 8136on 07-26-19 25 FUNST Normal [facility] Comment on above: Performed By: #### M 100.3000, M600.2200, M300.2000, M100.4001, M300.3000, M100.2000, M600.2000 ####[facility] [address] [place], [address] Absolute lymphocyte countOrd ered By: Nando Wiggins on 07-23-2024 Lymphocytes Auto (Unsp spec) [#/Vol] 2.13 10*3/uL 0.83-4.51 [facility] Automated lymphocyte count a s percentage of total leukocytesOrdered By: Nando Wiggins on 07-23-2024 Lymphocytes/100 WBC Auto (Unsp spec) 17.3 % Low 19-41 [facility] BUN/creatinine ratioOrdered By: Nando Wiggins on 07-23-2024 Urea nitrogen/Creatinine [Mass ratio] 14.6 mg/mg 10-20 [facility] Basic Metabolic Profile (BMP )on 07-23-2024 BUN Normal 7-18 [facility] Comment on above: Result Comment: Canc elled via OM: Order cancelled - Patient discharged Performed By: #### L 100.0100, L500.2500 ####[facility] [address] [place], [address] BUN/CRE Normal 10- [facility] Comment on above: Result Comment: Canc elled via OM: Order cancelled - Patient discharged Performed By: #### L 100.0100, L500.2500 ####[facility] [address] [place], [address] Calcium Normal 8.5-10.1 [facility] Comment on above: Result Comment: Canc elled via OM: Order cancelled - Patient discharged Performed By: #### L 100.0100, L500.2500 ####[facility] [address] [place], [address] CL Normal 98-107 [facility] Comment on above: Result Comment: Canc elled via OM: Order cancelled - Patient discharged Performed By: #### L 100.0100, L500.2500 ####[facility] [address] [place], [address] CO2 Normal 21.0-32.0 [facility] Comment on above: Result Comment: Canc elled via OM: Order cancelled - Patient discharged Performed By: #### L 100.0100, L500.2500 ####[facility] [address] [place], [address] CREAT,SERUM Normal 0.70-1.30 [facility] Comment on above: Result Comment: Canc elled via OM: Order cancelled - Patient discharged Performed By: #### L 100.0100, L500.2500 ####[facility] [address] [place], [address] eGFR Normal >60 [facility] Comment on above: Result Comment: Canc elled via OM: Order cancelled - Patient discharged Performed By: #### L 100.0100, L500.2500 ####[facility] [address] [place], [address] EST GFR - AA Normal >60 [facility] Comment on above: Result Comment: Canc elled via OM: Order cancelled - Patient discharged Performed By: #### L 100.0100, L500.2500 ####[facility] [address] [place], [address] GAP Normal 5-15 [facility] Comment on above: Result Comment: Canc elled via OM: Order cancelled - Patient discharged Performed By: #### L 100.0100, L500.2500 ####[facility] [address] [place], [address] GLU Normal 74-106 [facility] Comment on above: Result Comment: Canc elled via OM: Order cancelled - Patient discharged Performed By: #### L 100.0100, L500.2500 ####[facility] [address] [place], [address] Potassium Normal 3.5-5.1 [facility] Comment on above: Result Comment: Canc elled via OM: Order cancelled - Patient discharged Performed By: #### L 100.0100, L500.2500 ####[facility] [address] [place], [address] Basic Metabolic Profile (BMP) Normal 136-145 [facility] Comment on above: Result Comment: Canc elled via OM: Order cancelled - Patient discharged Performed By: #### L 100.0100, L500.2500 ####[facility] [address] [place], [address] Basophil percentageOrdered B y: Nando Wiggins on 07-23-2024 Basophils/100 WBC (Bld) 0.7 % 0-1 [facility] CBC W/Diff, Automatedon 03-0 Absolute Neut Normal 2.0-7.7 [facility] Comment on above: Result Comment: Canc elled via OM: Order cancelled - Patient discharged Performed By: #### L 100.0100, L500.2500 ####[facility] [address] [place], [address] HCT Normal 40-54 [facility] Comment on above: Result Comment: Canc elled via OM: Order cancelled - Patient discharged Performed By: #### L 100.0100, L500.2500 ####[facility] [address] [place], [address] HGB Normal 13.0-16.5 [facility] Comment on above: Result Comment: Canc elled via OM: Order cancelled - Patient discharged Performed By: #### L 100.0100, L500.2500 ####[facility] [address] [place], [address] MCH Normal 27.0-32.0 [facility] Comment on above: Result Comment: Canc elled via OM: Order cancelled - Patient discharged Performed By: #### L 100.0100, L500.2500 ####[facility] [address] [place], [address] MCHC Normal 32-36 [facility] Comment on above: Result Comment: Canc elled via OM: Order cancelled - Patient discharged Performed By: #### L 100.0100, L500.2500 ####[facility] [address] [place], [address] MCV Normal 80-94 [facility] Comment on above: Result Comment: Canc elled via OM: Order cancelled - Patient discharged Performed By: #### L 100.0100, L500.2500 ####[facility] [address] [place], [address] NEUT% Normal 47-70 [facility] Comment on above: Result Comment: Canc elled via OM: Order cancelled - Patient discharged Performed By: #### L 100.0100, L500.2500 ####[facility] [address] [place], [address] PLT Normal 150-450 [facility] Comment on above: Result Comment: Canc elled via OM: Order cancelled - Patient discharged Performed By: #### L 100.0100, L500.2500 ####[facility] [address] [place], [address] RBC Normal 4.6-6.2 [facility] Comment on above: Result Comment: Canc elled via OM: Order cancelled - Patient discharged Performed By: #### L 100.0100, L500.2500 ####[facility] [address] [place], [address] RDW CV Normal 11.6-14.6 [facility] Comment on above: Result Comment: Canc elled via OM: Order cancelled - Patient discharged Performed By: #### L 100.0100, L500.2500 ####[facility] [address] [place], [address] RDW SD Normal 35.1-43.9 [facility] Comment on above: Result Comment: Canc elled via OM: Order cancelled - Patient discharged Performed By: #### L 100.0100, L500.2500 ####[facility] [address] [place], [address] WBC Normal 4.4-11.0 [facility] Comment on above: Result Comment: Canc elled via OM: Order cancelled - Patient discharged Performed By: #### L 100.0100, L500.2500 ####[facility] [address] [place], [address] Carbon dioxide measurementOr dered By: Nando Wiggins on 07-23-2024 CO2 [Moles/Vol] 27.0 mmol/L 22.0-29.0 [facility] Chloride measurementOrdered By: Nando Wiggins on 07-23-2024 Chloride [Moles/Vol] 95 mmol/L Low 96-108 [facility] Comprehensive Metabolic Prof ilon 07-23-2024 ALB Normal 3.4-4.8 [facility] Comment on above: Result Comment: NOT DRAWN PATIENT DIDN'T COME TO LAB Performed By: #### L 500.4050 ####[facility] [address] [place], [address] ALK PHOS Normal 40-129 [facility] Comment on above: Result Comment: NOT DRAWN PATIENT DIDN'T COME TO LAB Performed By: #### L 500.4050 ####[facility] [address] [place], [address] ALT Normal <=46 [facility] Comment on above: Result Comment: NOT DRAWN PATIENT DIDN'T COME TO LAB Performed By: #### L 500.4050 ####[facility] [address] [place], [address] Anion Gap Normal 5-15 [facility] Comment on above: Result Comment: NOT DRAWN PATIENT DIDN'T COME TO LAB Performed By: #### L 500.4050 ####[facility] [address] [place], [address] AST Normal <=37 [facility] Comment on above: Result Comment: NOT DRAWN PATIENT DIDN'T COME TO LAB Performed By: #### L 500.4050 ####[facility] [address] [place], [address] Chloride Normal 96-108 [facility] Comment on above: Result Comment: NOT DRAWN PATIENT DIDN'T COME TO LAB Performed By: #### L 500.4050 ####[facility] [address] [place], [address] Sodium Normal 133-145 [facility] Comment on above: Result Comment: NOT DRAWN PATIENT DIDN'T COME TO LAB Performed By: #### L 500.4050 ####[facility] [address] [place], [address] T BILI Normal 0.00-1.30 [facility] Comment on above: Result Comment: NOT DRAWN PATIENT DIDN'T COME TO LAB Performed By: #### L 500.4050 ####[facility] [address] [place], [address] T PROT Normal 5.9-8.4 [facility] Comment on above: Result Comment: NOT DRAWN PATIENT DIDN'T COME TO LAB Performed By: #### L 500.4050 ####[facility] [address] [place], [address] Culture, Anaerobic Any Sourc reed 07-23-2024 CUAN Normal [facility] Comment on above: Performed By: #### M 100.2910, M100.4001, M100.2000 ####[facility] [address] [place], [address] Eosinophil percentageOrdered By: Nando Wiggins on 07-23-2024 Eosinophils/100 WBC (Bld) 1.3 % 0-5 [facility] Erythrocyte distribution wid th ratioOrdered By: Nando Wiggins on 07-23-2024 Erythrocyte distribution width (RBC) [Ratio] 17.1 % High 11.6-14.6 [facility] Erythrocyte distribution wid th standard deviationOrdered By: Nando Wiggins on 07-23-2024 Erythrocyte distribution width (RBC) [Ratio] 58.3 fl High 35.1-43.9 [facility] Glomerular filtration rate ( GFR) estimation/1.73 sq m using serum, plasma, or whole bOrdered By: Nando Wiggins on 07-23-2024 GFR/1.73 sq M.predicted among non-blacks MDRD (S/P/Bld) [Vol rate/Area] 13 mL/min/{1.73_m2} Low >60 [facility] Hematocrit Auto (Bld) [Volum e fraction]Ordered By: Nando Wiggins on 07-23-2024 Hematocrit (Bld) [Volume fraction] 26.1 % Low 40-54 [facility] Hemoglobin measurementOrdere d By: Nando Wiggins on 07-23-2024 Hemoglobin (Bld) [Mass/Vol] 7.8 g/dL Low 13.0-16.5 [facility] Immature granulocytes/100 WB C Auto (Bld)Ordered By: Nando Wiggins on 07-23-2024 Immature granulocytes/100 WBC (Bld) 2.100 % High 0.0-0.9 [facility] MCV (mean corpuscular volume ) determinationOrdered By: Nando Wiggins on 07-23-2024 MCV (RBC) [Entitic vol] 93.5 fL 80-94 [facility] Mean corpuscular hemoglobin (MCH) determinationOrdered By: Nando Wiggins on 07-23-2024 MCH (RBC) [Entitic mass] 28.0 pg 27.0-32.0 [facility] Monocyte percentageOrdered B y: Nando Wiggins on 07-23-2024 Monocytes/100 WBC (Bld) 7.7 % 0-10 [facility] Neutrophil percentageOrdered By: Nando Wiggins on 07-23-2024 Neutrophils/100 WBC (Bld) 70.9 % High 47-70 [facility] Platelet countOrdered By: Kathie Wiggins on 07-23-2024 Platelets (Bld) [#/Vol] 451 10*3/uL High 150-450 [facility] RBC Auto (Bld) [#/Vol]Ordere d By: Nando Wiggins on 07-23-2024 RBC (Bld) [#/Vol] 2.79 10*6/uL Low 4.6-6.2 [facility] Serum creatinine measurement (mass/volume)Ordered By: Nando Wigigns on 07-23-2024 Creatinine [Mass/Vol] 4.11 mg/dL High 0.70-1.20 [facility] Serum glucose measurement (m ass/volume)Ordered By: Nando Wiggins on 07-23-2024 Glucose [Mass/Vol] 147 mg/dL High 70-99 [facility] Serum or plasma anion gap de termination (moles/volume)Ordered By: Nando Wiggins on 07-23-2024 Anion gap [Moles/Vol] 12 mmol/L 5-15 [facility] Serum or plasma calcium lilli urement (mass/volume)Ordered By: Nando Wiggins on 07-23-2024 Calcium [Mass/Vol] 8.4 mg/dL 7.6-11.0 [facility] Serum or plasma potassium me asurementOrdered By: Nando Wiggins on 07-23-2024 Potassium [Moles/Vol] 5.0 mmol/L 3.3-5.1 [facility] Serum or plasma sodium measu rement (moles/volume)Ordered By: Nando Wiggins on 07-23-2024 Sodium [Moles/Vol] 134 mmol/L 133-145 [facility] Serum or plasma urea nitroge n measurement (mass/volume)Ordered By: Nadno Wiggins on 07-23-2024 Urea nitrogen [Mass/Vol] 60 mg/dL High 4-19 [facility] White blood cell (WBC) count Ordered By: Nando Wiggins on 07-23-2024 WBC (Bld) [#/Vol] 12.3 10*3/uL High 4.4-11.0 [facility] History AND Physic ariella 07-23-2024 Wound Ctr History & Physical Normal [facility] Basic Metabolic Profile (BMP )on 07-22-2024 CL Normal 98-107 [facility] Comment on above: Result Comment: Canc elled via OM: Order cancelled - Patient discharged Performed By: #### L 100.0100, L500.2500 ####[facility] [address] [place], [address] EST GFR - AA Normal >60 [facility] Comment on above: Result Comment: Canc elled via OM: Order cancelled - Patient discharged Performed By: #### L 100.0100, L500.2500 ####[facility] [address] [place], [address] GAP Normal 5-15 [facility] Comment on above: Result Comment: Canc elled via OM: Order cancelled - Patient discharged Performed By: #### L 100.0100, L500.2500 ####[facility] [address] [place], [address] Basic Metabolic Profile (BMP) Normal 136-145 [facility] Comment on above: Result Comment: Canc elled via OM: Order cancelled - Patient discharged Performed By: #### L 100.0100, L500.2500 ####[facility] [address] [place], [address] CBC W/Diff, Automatedon 03-0 Absolute Neut Normal 2.0-7.7 [facility] Comment on above: Result Comment: Canc elled via OM: Order cancelled - Patient discharged Performed By: #### L 100.0100, L500.2500 ####[facility] [address] [place], [address] HCT Normal 40-54 [facility] Comment on above: Result Comment: Canc elled via OM: Order cancelled - Patient discharged Performed By: #### L 100.0100, L500.2500 ####[facility] [address] [place], [address] HGB Normal 13.0-16.5 [facility] Comment on above: Result Comment: Canc elled via OM: Order cancelled - Patient discharged Performed By: #### L 100.0100, L500.2500 ####[facility] [address] [place], [address] MCH Normal 27.0-32.0 [facility] Comment on above: Result Comment: Canc elled via OM: Order cancelled - Patient discharged Performed By: #### L 100.0100, L500.2500 ####[facility] [address] [place], [address] MCHC Normal 32-36 [facility] Comment on above: Result Comment: Canc elled via OM: Order cancelled - Patient discharged Performed By: #### L 100.0100, L500.2500 ####[facility] [address] [place], [address] MCV Normal 80-94 [facility] Comment on above: Result Comment: Canc elled via OM: Order cancelled - Patient discharged Performed By: #### L 100.0100, L500.2500 ####[facility] [address] [place], [address] NEUT% Normal 47-70 [facility] Comment on above: Result Comment: Canc elled via OM: Order cancelled - Patient discharged Performed By: #### L 100.0100, L500.2500 ####[facility] [address] [place], [address] PLT Normal 150-450 [facility] Comment on above: Result Comment: Canc elled via OM: Order cancelled - Patient discharged Performed By: #### L 100.0100, L500.2500 ####[facility] [address] [place], [address] RBC Normal 4.6-6.2 [facility] Comment on above: Result Comment: Canc elled via OM: Order cancelled - Patient discharged Performed By: #### L 100.0100, L500.2500 ####[facility] [address] [place], [address] RDW CV Normal 11.6-14.6 [facility] Comment on above: Result Comment: Canc elled via OM: Order cancelled - Patient discharged Performed By: #### L 100.0100, L500.2500 ####[facility] [address] [place], [address] RDW SD Normal 35.1-43.9 [facility] Comment on above: Result Comment: Canc elled via OM: Order cancelled - Patient discharged Performed By: #### L 100.0100, L500.2500 ####[facility] [address] [place], [address] WBC Normal 4.4-11.0 [facility] Comment on above: Result Comment: Canc elled via OM: Order cancelled - Patient discharged Performed By: #### L 100.0100, L500.2500 ####[facility] [address] [place], [address] Comprehensive Metabolic Prof ilon 07-22-2024 BUN Normal 7-18 [facility] Comment on above: Result Comment: NOT DRAWN PATIENT DIDN'T COME TO LAB Performed By: #### L 500.4050 ####[facility] [address] [place], [address] Result Comment: Canc elled via OM: Order cancelled - Patient discharged Performed By: #### L 100.0100, L500.2500 ####[facility] [address] [place], [address] BUN/CRE Normal 10-20 [facility] Comment on above: Result Comment: NOT DRAWN PATIENT DIDN'T COME TO LAB Performed By: #### L 500.4050 ####[facility] [address] [place], [address] Result Comment: Canc elled via OM: Order cancelled - Patient discharged Performed By: #### L 100.0100, L500.2500 ####[facility] [address] [place], [address] Calcium Normal 8.5-10.1 [facility] Comment on above: Result Comment: NOT DRAWN PATIENT DIDN'T COME TO LAB Performed By: #### L 500.4050 ####[facility] [address] [place], [address] Result Comment: Canc elled via OM: Order cancelled - Patient discharged Performed By: #### L 100.0100, L500.2500 ####[facility] [address] [place], [address] CO2 Normal 21.0-32.0 [facility] Comment on above: Result Comment: NOT DRAWN PATIENT DIDN'T COME TO LAB Performed By: #### L 500.4050 ####[facility] [address] [place], [address] Result Comment: Canc elled via OM: Order cancelled - Patient discharged Performed By: #### L 100.0100, L500.2500 ####[facility] [address] [place], [address] CREAT,SERUM Normal 0.70-1.30 [facility] Comment on above: Result Comment: NOT DRAWN PATIENT DIDN'T COME TO LAB Performed By: #### L 500.4050 ####[facility] [address] [place], [address] Result Comment: Canc elled via OM: Order cancelled - Patient discharged Performed By: #### L 100.0100, L500.2500 ####[facility] [address] [place], [address] eGFR Normal >60 [facility] Comment on above: Result Comment: NOT DRAWN PATIENT DIDN'T COME TO LAB Performed By: #### L 500.4050 ####[facility] [address] [place], [address] Result Comment: Canc elled via OM: Order cancelled - Patient discharged Performed By: #### L 100.0100, L500.2500 ####[facility] [address] [place], [address] GLU Normal 74-106 [facility] Comment on above: Result Comment: NOT DRAWN PATIENT DIDN'T COME TO LAB Performed By: #### L 500.4050 ####[facility] [address] [place], [address] Result Comment: Canc elled via OM: Order cancelled - Patient discharged Performed By: #### L 100.0100, L500.2500 ####[facility] [address] [place], [address] Potassium Normal 3.5-5.1 [facility] Comment on above: Result Comment: NOT DRAWN PATIENT DIDN'T COME TO LAB Performed By: #### L 500.4050 ####[facility] [address] [place], [address] Result Comment: Canc elled via OM: Order cancelled - Patient discharged Performed By: #### L 100.0100, L500.2500 ####[facility] [address] [place], [address] Culture, Blood (WB)on 2024 CUB No growth in 5 days. Normal [facility] Comment on above: Performed By: #### M 200.1000 ####[facility] [address] [place], [address] Basic Metabolic Profile (BMP )on 07-21-2024 BUN Normal 7-18 [facility] Comment on above: Result Comment: Canc elled via OM: Order cancelled - Patient discharged Performed By: #### L 100.0100, L500.2500 ####[facility] [address] [place], [address] BUN/CRE Normal 10-20 [facility] Comment on above: Result Comment: Canc elled via OM: Order cancelled - Patient discharged Performed By: #### L 100.0100, L500.2500 ####[facility] [address] [place], [address] Calcium Normal 8.5-10.1 [facility] Comment on above: Result Comment: Canc elled via OM: Order cancelled - Patient discharged Performed By: #### L 100.0100, L500.2500 ####[facility] [address] [place], [address] CL Normal 98-107 [facility] Comment on above: Result Comment: Canc elled via OM: Order cancelled - Patient discharged Performed By: #### L 100.0100, L500.2500 ####[facility] [address] [place], [address] CO2 Normal 21.0-32.0 [facility] Comment on above: Result Comment: Canc elled via OM: Order cancelled - Patient discharged Performed By: #### L 100.0100, L500.2500 ####[facility] [address] [place], [address] CREAT,SERUM Normal 0.70-1.30 [facility] Comment on above: Result Comment: Canc elled via OM: Order cancelled - Patient discharged Performed By: #### L 100.0100, L500.2500 ####[facility] [address] [place], [address] eGFR Normal >60 [facility] Comment on above: Result Comment: Canc elled via OM: Order cancelled - Patient discharged Performed By: #### L 100.0100, L500.2500 ####[facility] [address] [place], [address] EST GFR - AA Normal >60 [facility] Comment on above: Result Comment: Canc elled via OM: Order cancelled - Patient discharged Performed By: #### L 100.0100, L500.2500 ####[facility] [address] [place], [address] GAP Normal 5-15 [facility] Comment on above: Result Comment: Canc elled via OM: Order cancelled - Patient discharged Performed By: #### L 100.0100, L500.2500 ####[facility] [address] [place], [address] GLU Normal 74-106 [facility] Comment on above: Result Comment: Canc elled via OM: Order cancelled - Patient discharged Performed By: #### L 100.0100, L500.2500 ####[facility] [address] [place], [address] Potassium Normal 3.5-5.1 [facility] Comment on above: Result Comment: Canc elled via OM: Order cancelled - Patient discharged Performed By: #### L 100.0100, L500.2500 ####[facility] [address] [place], [address] Basic Metabolic Profile (BMP) Normal 136-145 [facility] Comment on above: Result Comment: Canc elled via OM: Order cancelled - Patient discharged Performed By: #### L 100.0100, L500.2500 ####[facility] [address] [place], [address] CBC W/Diff, Automatedon 03-0 -2024 Absolute Neut Normal 2.0-7.7 [facility] Comment on above: Result Comment: Canc elled via OM: Order cancelled - Patient discharged Performed By: #### L 100.0100, L500.2500 ####[facility] [address] [place], [address] HCT Normal 40-54 [facility] Comment on above: Result Comment: Canc elled via OM: Order cancelled - Patient discharged Performed By: #### L 100.0100, L500.2500 ####[facility] [address] [place], [address] HGB Normal 13.0-16.5 [facility] Comment on above: Result Comment: Canc elled via OM: Order cancelled - Patient discharged Performed By: #### L 100.0100, L500.2500 ####[facility] [address] [place], [address] MCH Normal 27.0-32.0 [facility] Comment on above: Result Comment: Canc elled via OM: Order cancelled - Patient discharged Performed By: #### L 100.0100, L500.2500 ####[facility] [address] [place], [address] MCHC Normal 32-36 [facility] Comment on above: Result Comment: Canc elled via OM: Order cancelled - Patient discharged Performed By: #### L 100.0100, L500.2500 ####[facility] [address] [place], [address] MCV Normal 80-94 [facility] Comment on above: Result Comment: Canc elled via OM: Order cancelled - Patient discharged Performed By: #### L 100.0100, L500.2500 ####[facility] [address] [place], [address] NEUT% Normal 47-70 [facility] Comment on above: Result Comment: Canc elled via OM: Order cancelled - Patient discharged Performed By: #### L 100.0100, L500.2500 ####[facility] [address] [place], [address] PLT Normal 150-450 [facility] Comment on above: Result Comment: Canc elled via OM: Order cancelled - Patient discharged Performed By: #### L 100.0100, L500.2500 ####[facility] [address] [place], [address] RBC Normal 4.6-6.2 [facility] Comment on above: Result Comment: Canc elled via OM: Order cancelled - Patient discharged Performed By: #### L 100.0100, L500.2500 ####[facility] [address] [place], [address] RDW CV Normal 11.6-14.6 [facility] Comment on above: Result Comment: Canc elled via OM: Order cancelled - Patient discharged Performed By: #### L 100.0100, L500.2500 ####[facility] [address] [place], [address] RDW SD Normal 35.1-43.9 [facility] Comment on above: Result Comment: Canc elled via OM: Order cancelled - Patient discharged Performed By: #### L 100.0100, L500.2500 ####[facility] [address] [place], [address] WBC Normal 4.4-11.0 [facility] Comment on above: Result Comment: Canc elled via OM: Order cancelled - Patient discharged Performed By: #### L 100.0100, L500.2500 ####[facility] [address] [place], [address] Culture, Anaerobic Any Sourc reed 07-21-2024 CUAN UNK UNK Post-lavage Right lower extremity No anaerobic bacteria isolated. Normal [facility] Comment on above: Performed By: #### M 100.2000, M100.3000, M100.4001 ####[facility] [address] [place], [address] CUAN UNK UNK Pre-lavage right lower extremity - collected in [place] No anaerobic bacteria isolated. Normal [facility] Comment on above: Performed By: #### M 100.4001, M100.3000, M100.2000 ####[facility] [address] [place], [address] Culture, Blood (WB)on 2024 CUB No growth in 5 days. Normal [facility] Comment on above: Performed By: #### M 200.1000 ####[facility] [address] [place], [address] Absolute lymphocyte countOrd ered By: Jayla Osuna on 07-20-2024 Lymphocytes Auto (Unsp spec) [#/Vol] 1.89 10*3/uL 0.83-4.51 [facility] Automated lymphocyte count a s percentage of total leukocytesOrdered By: Jayla Osuna on 07-20-2024 Lymphocytes/100 WBC Auto (Unsp spec) 14.9 % Low 19-41 [facility] BUN/creatinine ratioOrdered By: Margarette Godinez on 07-20-2024 Urea nitrogen/Creatinine [Mass ratio] 16.1 mg/mg 10-20 [facility] Basic Metabolic Profile (BMP )on 02-28-2025 Anion gap [Moles/Vol] 12 mmol/L Normal 5-15 [facility] Comment on above: Performed By: #### L 500.2500 ####[facility] [address] [place], [address] BUN/CRE 16.1 RATIO Normal 10-20 [facility] Comment on above: Performed By: #### L 500.2500 ####[facility] [address] [place], [address] Calcium [Mass/Vol] 8.7 mg/dL Normal 7.6-11.0 [facility] Comment on above: Performed By: #### L 500.2500 ####[facility] [address] [place], [address] Chloride [Moles/Vol] 97 mmol/L Normal 96-108 [facility] Comment on above: Performed By: #### L 500.2500 ####[facility] [address] [place], [address] CO2 [Moles/Vol] 22.0 mmol/L Normal 22.0-29.0 [facility] Comment on above: Performed By: #### L 500.2500 ####[facility] [address] [place], [address] Creatinine [Mass/Vol] 4.24 mg/dL High 0.70-1.20 [facility] Comment on above: Performed By: #### L 500.2500 ####[facility] [address] [place], [address] ECRCL 13.28 ml/min Normal [facility] Comment on above: Performed By: #### L 500.2500 ####[facility] [address] [place], [address] GFR/1.73 sq M.predicted among non-blacks MDRD (S/P/Bld) [Vol rate/Area] 13 mL/min/{1.73_m2} Low >60 [facility] Comment on above: Result Comment: mL/m in/1.73m2 CKD-EPI Creatinine Equation (2020) Performed By: #### L 500.2500 ####[facility] [address] [place], [address] Glucose [Mass/Vol] 153 mg/dL High 70-99 [facility] Comment on above: Performed By: #### L 500.2500 ####[facility] [address] [place], [address] Potassium [Moles/Vol] 5.5 mmol/L High 3.3-5.1 [facility] Comment on above: Performed By: #### L 500.2500 ####[facility] [address] [place], [address] Sodium [Moles/Vol] 131 mmol/L Low 133-145 [facility] Comment on above: Performed By: #### L 500.2500 ####[facility] [address] [place], [address] Urea nitrogen [Mass/Vol] 68 mg/dL High 4-19 [facility] Comment on above: Performed By: #### L 500.2500 ####[facility] [address] [place], [address] BUN/CRE 16.1 RATIO Normal 10-20 [facility] Comment on above: Result Comment: WILL REORDER Performed By: #### L 500.2500, L100.0100 ####[facility] [address] [place], [address] Creatinine [Mass/Vol] 4.15 mg/dL High 0.70-1.20 [facility] Comment on above: Result Comment: WILL REORDER Performed By: #### L 500.2500, L100.0100 ####[facility] [address] [place], [address] ECRCL 13.57 ml/min Normal [facility] Comment on above: Result Comment: WILL REORDER Performed By: #### L 500.2500, L100.0100 ####[facility] [address] [place], [address] GFR/1.73 sq M.predicted among non-blacks MDRD (S/P/Bld) [Vol rate/Area] 13 mL/min/{1.73_m2} Low >60 [facility] Comment on above: Result Comment: WILL REORDERmL/min/1.73m2 CKD-EPI Creatinine Equation (2020) Performed By: #### L 500.2500, L100.0100 ####[facility] [address] [place], [address] Glucose [Mass/Vol] 155 mg/dL High 70-99 [facility] Comment on above: Result Comment: WILL REORDER Performed By: #### L 500.2500, L100.0100 ####[facility] [address] [place], [address] Urea nitrogen [Mass/Vol] 67 mg/dL High 4-19 [facility] Comment on above: Result Comment: WILL REORDER Performed By: #### L 500.2500, L100.0100 ####[facility] [address] [place], [address] Calcium Normal 8.5-10.1 [facility] Comment on above: Result Comment: WILL REORDER Performed By: #### L 500.2500, L100.0100 ####[facility] [address] [place], [address] CL Normal 98-107 [facility] Comment on above: Result Comment: WILL REORDER Performed By: #### L 500.2500, L100.0100 ####[facility] [address] [place], [address] CO2 Normal 21.0-32.0 [facility] Comment on above: Result Comment: WILL REORDER Performed By: #### L 500.2500, L100.0100 ####[facility] [address] [place], [address] EST GFR - AA Normal >60 [facility] Comment on above: Result Comment: WILL REORDER Performed By: #### L 500.2500, L100.0100 ####[facility] [address] [place], [address] GAP Normal 5-15 [facility] Comment on above: Result Comment: WILL REORDER Performed By: #### L 500.2500, L100.0100 ####[facility] [address] [place], [address] Potassium Normal 3.5-5.1 [facility] Comment on above: Result Comment: WILL REORDER Performed By: #### L 500.2500, L100.0100 ####[facility] [address] [place], [address] Basic Metabolic Profile (BMP) Normal 136-145 [facility] Comment on above: Result Comment: WILL REORDER Performed By: #### L 500.2500, L100.0100 ####[facility] [address] [place], [address] Basophil percentageOrdered B y: Jayla Osuna on 07-20-2024 Basophils/100 WBC (Bld) 0.4 % 0-1 [facility] Bedside Glucoseon 07-20-2024 FINGERSTICK GLU 91 mg/dL Normal 74-106 [facility] Comment on above: Result Comment: FANG GEMENT OF PATIENT CARE PER NURSING PROTOCOL Performed By: #### L 501.080 ####[facility] [address] [place], [address] FINGERSTICK GLU 98 mg/dL Normal 74-106 [facility] Comment on above: Result Comment: FANG GEMENT OF PATIENT CARE PER NURSING PROTOCOL Performed By: #### L 501.080 ####[facility] [address] [place], [address] FINGERSTICK GLU 159 mg/dL High 74-106 [facility] Comment on above: Result Comment: FANG GEMENT OF PATIENT CARE PER NURSING PROTOCOL Performed By: #### L 501.080 ####[facility] [address] [place], [address] FINGERSTICK GLU 156 mg/dL High 74-106 [facility] Comment on above: Result Comment: FANG GEMENT OF PATIENT CARE PER NURSING PROTOCOL Performed By: #### L 501.080 ####[facility] [address], [address] CBC W/Diff, Automatedon 06-24 Absolute Lymph 1.89 X10 3/uL Normal 0.83-4.51 [facility] Comment on above: Performed By: #### L 500.2500, L100.0100 ####[facility] [address] [place], [address] Absolute Neut 9.3 X10 3/uL High 2.0-7.7 [facility] Comment on above: Performed By: #### L 500.2500, L100.0100 ####[facility] [address] [place], [address] Basophils/100 WBC (Bld) 0.4 % Normal 0-1 [facility] Comment on above: Performed By: #### L 500.2500, L100.0100 ####[facility] [address] [place], [address] Eosinophils/100 WBC (Bld) 1.7 % Normal 0-5 [facility] Comment on above: Performed By: #### L 500.2500, L100.0100 ####[facility] [address] [place], [address] Erythrocyte distribution width (RBC) [Ratio] 17.6 % High 11.6-14.6 [facility] Comment on above: Performed By: #### L 500.2500, L100.0100 ####[facility] [address] [place], [address] Hematocrit (Bld) [Volume fraction] 25.2 % Low 40-54 [facility] Comment on above: Performed By: #### L 500.2500, L100.0100 ####[facility] [address] [place], [address] Hemoglobin (Bld) [Mass/Vol] 7.6 g/dL Low 13.0-16.5 [facility] Comment on above: Performed By: #### L 500.2500, L100.0100 ####[facility] [address] [place], [address] IG% 2.300 High 0.0-0.9 [facility] Comment on above: Result Comment: IG% - Immature Granulocytes (promyelocytes, myelocytes andmetamyelocytes) > 1% indicates that a LEFT SHIFT is Present. Performed By: #### L 500.2500, L100.0100 ####[facility] [address] [place], [address] Lymphocytes/100 WBC (Bld) 14.9 % Low 19-41 [facility] Comment on above: Performed By: #### L 500.2500, L100.0100 ####[facility] [address] [place], [address] MCH (RBC) [Entitic mass] 28.1 pg Normal 27.0-32.0 [facility] Comment on above: Performed By: #### L 500.2500, L100.0100 ####[facility] [address] [place], [address] MCHC (RBC) [Mass/Vol] 30.2 g/dL Low 32-36 [facility] Comment on above: Performed By: #### L 500.2500, L100.0100 ####[facility] [address] [place], [address] MCV (RBC) [Entitic vol] 93.3 fL Normal 80-94 [facility] Comment on above: Performed By: #### L 500.2500, L100.0100 ####[facility] [address] [place], [address] Monocytes/100 WBC (Bld) 7.6 % Normal 0-10 [facility] Comment on above: Performed By: #### L 500.2500, L100.0100 ####[facility] [address] [place], [address] Neutrophils/100 WBC (Bld) 73.1 % High 47-70 [facility] Comment on above: Performed By: #### L 500.2500, L100.0100 ####[facility] [address] [place], [address] Nucleated RBC (Bld) [#/Vol] 0 10*3/uL Normal 0-5 [facility] Comment on above: Performed By: #### L 500.2500, L100.0100 ####[facility] [address] [place], [address] Platelet mean volume (Bld) [Entitic vol] 10.4 fL Normal 6.2-12.0 [facility] Comment on above: Performed By: #### L 500.2500, L100.0100 ####[facility] [address] [place], [address] Platelets (Bld) [#/Vol] 438 10*3/uL Normal 150-450 [facility] Comment on above: Performed By: #### L 500.2500, L100.0100 ####[facility] [address] [place], [address] RBC (Bld) [#/Vol] 2.70 10*6/uL Low 4.6-6.2 [facility] Comment on above: Performed By: #### L 500.2500, L100.0100 ####[facility] [address] [place], [address] RDW SD 60.7 fl High 35.1-43.9 [facility] Comment on above: Performed By: #### L 500.2500, L100.0100 ####[facility] [address] [place], [address] WBC (Bld) [#/Vol] 12.7 10*3/uL High 4.4-11.0 [facility] Comment on above: Performed By: #### L 500.2500, L100.0100 ####[facility] [address] [place], [address] Carbon dioxide measurementOr dered By: Margarette Godinez on 07-20-2024 CO2 [Moles/Vol] 22.0 mmol/L 22.0-29.0 [facility] Chloride measurementOrdered By: Margarette Godinez on 07-20-2024 Chloride [Moles/Vol] 97 mmol/L 96-108 [facility] Eosinophil percentageOrdered By: Jayla Osuna on 07-20-2024 Eosinophils/100 WBC (Bld) 1.7 % 0-5 [facility] Erythrocyte distribution wid th ratioOrdered By: Jayla Osuna on 07-20-2024 Erythrocyte distribution width (RBC) [Ratio] 17.6 % High 11.6-14.6 [facility] Erythrocyte distribution wid th standard deviationOrdered By: Jayla Osuna on 07-20-2024 Erythrocyte distribution width (RBC) [Ratio] 60.7 fl High 35.1-43.9 [facility] Glomerular filtration rate ( GFR) estimation/1.73 sq m using serum, plasma, or whole bOrdered By: Margarette Godinez on 07-20-2024 GFR/1.73 sq M.predicted among non-blacks MDRD (S/P/Bld) [Vol rate/Area] 13 mL/min/{1.73_m2} Low >60 [facility] deOrdered By: Margarette Godinez on 07-20-2024 Glucose [Mass/Vol] 91 mg/dL 74-106 [facility] Hematocrit Auto (Bld) [Volum e fraction]Ordered By: Jayla Osuna on 07-20-2024 Hematocrit (Bld) [Volume fraction] 25.2 % Low 40-54 [facility] Hemoglobin measurementOrdere d By: Jayla Osuna on 07-20-2024 Hemoglobin (Bld) [Mass/Vol] 7.6 g/dL Low 13.0-16.5 [facility] Immature granulocytes/100 WB C Auto (Bld)Ordered By: Jayla Osuna on 07-20-2024 Immature granulocytes/100 WBC (Bld) 2.300 % High 0.0-0.9 [facility] MCV (mean corpuscular volume ) determinationOrdered By: Jayla Osuna on 07-20-2024 MCV (RBC) [Entitic vol] 93.3 fL 80-94 [facility] Mean corpuscular hemoglobin (MCH) determinationOrdered By: Jayla Osuna on 07-20-2024 MCH (RBC) [Entitic mass] 28.1 pg 27.0-32.0 [facility] Monocyte percentageOrdered B y: Jayla Osuna on 07-20-2024 Monocytes/100 WBC (Bld) 7.6 % 0-10 [facility] Neutrophil percentageOrdered By: Jayla Osuna on 07-20-2024 Neutrophils/100 WBC (Bld) 73.1 % High 47-70 [facility] Platelet countOrdered By: Kristofer Osuna on 07-20-2024 Platelets (Bld) [#/Vol] 438 10*3/uL 150-450 [facility] RBC Auto (Bld) [#/Vol]Ordere d By: Jayla Osuna on 07-20-2024 RBC (Bld) [#/Vol] 2.70 10*6/uL Low 4.6-6.2 [facility] Serum creatinine measurement (mass/volume)Ordered By: Margarette Godinez on 07-20-2024 Creatinine [Mass/Vol] 4.24 mg/dL High 0.70-1.20 [facility] Serum glucose measurement (m ass/volume)Ordered By: Margarette Godinez on 07-20-2024 Glucose [Mass/Vol] 153 mg/dL High 70-99 [facility] Serum or plasma anion gap de termination (moles/volume)Ordered By: Margarette Godinez on 07-20-2024 Anion gap [Moles/Vol] 12 mmol/L 5- [facility] Serum or plasma calcium lilli urement (mass/volume)Ordered By: Margarette Godinez on 07-20-2024 Calcium [Mass/Vol] 8.7 mg/dL 7.6-11.0 [facility] Serum or plasma potassium me asurementOrdered By: Margarette Godinez on 07-20-2024 Potassium [Moles/Vol] 5.5 mmol/L High 3.3-5.1 [facility] Serum or plasma sodium measu rement (moles/volume)Ordered By: Margarette Godinez on 07-20-2024 Sodium [Moles/Vol] 131 mmol/L Low 133-145 [facility] Serum or plasma urea nitroge n measurement (mass/volume)Ordered By: Margarette Godinez on 07-20-2024 Urea nitrogen [Mass/Vol] 68 mg/dL High 4 [facility] White blood cell (WBC) count Ordered By: Jayla Osuna on 07-20-2024 WBC (Bld) [#/Vol] 12.7 10*3/uL High 4.4-11.0 [facility] Basic Metabolic Profile (BMP )on 07-19-2024 Anion gap [Moles/Vol] 17 mmol/L High 5- [facility] Comment on above: Performed By: #### L 500.2500 ####[facility] [address] [place], [place], [address] BUN/CRE 14.3 RATIO Normal 10-20 [facility] Comment on above: Performed By: #### L 500.2500 ####[facility] [address] [place], [place], [address] Calcium [Mass/Vol] 8.7 mg/dL Normal 7.6-11.0 [facility] Comment on above: Performed By: #### L 500.2500 ####[facility] [address] [place], [address] Chloride [Moles/Vol] 95 mmol/L Low 96-108 [facility] Comment on above: Performed By: #### L 500.2500 ####[facility] [address] [place], [address] CO2 [Moles/Vol] 19.8 mmol/L Low 22.0-29.0 [facility] Comment on above: Performed By: #### L 500.2500 ####[facility] [address] [place], [address] Creatinine [Mass/Vol] 5.60 mg/dL High 0.70-1.20 [facility] Comment on above: Performed By: #### L 500.2500 ####[facility] [address] [place], [address] ECRCL 10.06 ml/min Normal [facility] Comment on above: Performed By: #### L 500.2500 ####[facility] [address] [place], [address] GFR/1.73 sq M.predicted among non-blacks MDRD (S/P/Bld) [Vol rate/Area] 9 mL/min/{1.73_m2} Low >60 [facility] Comment on above: Result Comment: mL/m in/1.73m2 CKD-EPI Creatinine Equation (2020) Performed By: #### L 500.2500 ####[facility] [address] [place], [address] Glucose [Mass/Vol] 153 mg/dL High 70-99 [facility] Comment on above: Performed By: #### L 500.2500 ####[facility] [address] [place], [address] Potassium [Moles/Vol] 5.9 mmol/L High 3.3-5.1 [facility] Comment on above: Performed By: #### L 500.2500 ####[facility] [address] [place], [address] Sodium [Moles/Vol] 131 mmol/L Low 133-145 [facility] Comment on above: Performed By: #### L 500.2500 ####[facility] [address] [place], [address] Urea nitrogen [Mass/Vol] 80 mg/dL High 4-19 [facility] Comment on above: Performed By: #### L 500.2500 ####[facility] [address] [place], [address] Anion gap [Moles/Vol] 13 mmol/L Normal 5-15 [facility] Comment on above: Performed By: #### L 500.2500 ####[facility] [address] [place], [address] ECRCL 12.41 ml/min Normal [facility] Comment on above: Performed By: #### L 500.2500 ####[facility] [address] [place], [address] GFR/1.73 sq M.predicted among non-blacks MDRD (S/P/Bld) [Vol rate/Area] 12 mL/min/{1.73_m2} Low >60 [facility] Comment on above: Performed By: #### L 500.2500 ####[facility] [address] [place], [address] BUN/CRE 13.7 RATIO Normal 10-20 [facility] Comment on above: Performed By: #### L 500.2500 ####[facility] [address] [place], [address] Calcium [Mass/Vol] 8.9 mg/dL Normal 7.6-11.0 [facility] Comment on above: Performed By: #### L 500.2500 ####[facility] [address] [place], [address] Creatinine [Mass/Vol] 4.6 mg/dL High 0.8-1.3 [facility] Comment on above: Performed By: #### L 500.2500 ####[facility] [address], [address] Glucose [Mass/Vol] 130 mg/dL High 70-99 [facility] Comment on above: Performed By: #### L 500.2500 ####[facility] [address] [place], [address] Urea nitrogen [Mass/Vol] 63 mg/dL High 4-19 [facility] Comment on above: Performed By: #### L 500.2500 ####[facility] [address], [address] Chloride [Moles/Vol] 97 mmol/L Normal 96-108 [facility] Comment on above: Performed By: #### L 500.2500 ####[facility] [address], [address] CO2 [Moles/Vol] 22.7 mmol/L Normal 22.0-29.0 [facility] Comment on above: Performed By: #### L 500.2500 ####[facility] [address] [place], [address] Potassium [Moles/Vol] 5.0 mmol/L Normal 3.3-5.1 [facility] Comment on above: Performed By: #### L 500.2500 ####[facility] [address] [place], [address] Sodium [Moles/Vol] 133 mmol/L Normal 133-145 [facility] Comment on above: Performed By: #### L 500.2500 ####[facility] [address] [place], [address] Glucose [Mass/Vol] 165 mg/dL High 70-99 [facility] Comment on above: Order Comment: REORD ERED Result Comment: MARIS RAYA AMENDED REPORT 07/19/24 1223 GLU previously reported as: 173 H mg/dL Performed By: #### L 100.0100, L500.2500 ####[facility] [address] [place], [address] Urea nitrogen [Mass/Vol] 84 mg/dL High 4-19 [facility] Comment on above: Order Comment: REORD ERED Result Comment: MARIS RAYA AMENDED REPORT 07/19/24 1223 BUN previously reported as: 83 H mg/dL Performed By: #### L 100.0100, L500.2500 ####[facility] [address] [place], [address] BUN/CRE 13.7 RATIO Normal 10-20 [facility] Comment on above: Order Comment: WILL REORDER Result Comment: WILL REORDER AMENDED REPORT 07/19/24 1106 BUN/CRE previously reported as: 13.5 RATIO Performed By: #### L 100.0100, L500.2500 ####[facility] [address] [place], [address] Creatinine [Mass/Vol] 4.6 mg/dL High 0.8-1.3 [facility] Comment on above: Order Comment: WILL REORDER Result Comment: WILL REORDER AMENDED REPORT 07/19/24 1106 CREAT,SERUM previously reported as: 4.5 H mg/dL Performed By: #### L 100.0100, L500.2500 ####[facility] [address] [place], [address] ECRCL 12.41 ml/min Normal [facility] Comment on above: Order Comment: WILL REORDER Result Comment: WILL REORDER AMENDED REPORT 07/19/24 1106 Estimated CRCL previously reported as: 12.65 ml/min Performed By: #### L 100.0100, L500.2500 ####[facility] [address] [place], [address] Glucose [Mass/Vol] 130 mg/dL High 70-99 [facility] Comment on above: Order Comment: WILL REORDER Result Comment: WILL REORDER AMENDED REPORT 07/19/24 1106 GLU previously reported as: 157 H mg/dL Performed By: #### L 100.0100, L500.2500 ####[facility] [address] [place], [address] Urea nitrogen [Mass/Vol] 63 mg/dL High 4-19 [facility] Comment on above: Order Comment: WILL REORDER Result Comment: WILL REORDER AMENDED REPORT 07/19/24 1106 BUN previously reported as: 60 H mg/dL Performed By: #### L 100.0100, L500.2500 ####[facility] [address] [place], [address] BUN/CRE 15.2 RATIO Normal 10-20 [facility] Comment on above: Order Comment: REALVERTO ERED Result Comment: REOR DERED Performed By: #### L 100.0100, L500.2500 ####[facility] [address] [place], [address] Creatinine [Mass/Vol] 5.5 mg/dL High 0.8-1.3 [facility] Comment on above: Order Comment: REORD ERED Result Comment: REOR DERED Performed By: #### L 100.0100, L500.2500 ####[facility] [address] [place], [address] ECRCL 10.38 ml/min Normal [facility] Comment on above: Order Comment: REORD ERED Result Comment: REOR DERED Performed By: #### L 100.0100, L500.2500 ####[facility] [address] [place], [address] GFR/1.73 sq M.predicted among non-blacks MDRD (S/P/Bld) [Vol rate/Area] 9 mL/min/{1.73_m2} Low >60 [facility] Comment on above: Order Comment: THERESA ERED Result Comment: MARIS ZHAODmL/min/1.73m2 CKD-EPI Creatinine Equation (2020) Performed By: #### L 100.0100, L500.2500 ####[facility] [address] [place], [address] Calcium Normal 8.5-10.1 [facility] Comment on above: Order Comment: REALVERTO ERED Result Comment: MARIS ZHAOD Performed By: #### L 100.0100, L500.2500 ####[facility] [address] [place], [address] CL Normal 98-107 [facility] Comment on above: Order Comment: REALVERTO ERED Result Comment: MARIS ZHAOD Performed By: #### L 100.0100, L500.2500 ####[facility] [address] [place], [address] CO2 Normal 21.0-32.0 [facility] Comment on above: Order Comment: REALVERTO ERED Result Comment: MARIS ZHAOD Performed By: #### L 100.0100, L500.2500 ####[facility] [address] [place], [address] EST GFR - AA Normal >60 [facility] Comment on above: Order Comment: REALVERTO ERED Result Comment: MARIS ZHAOD Performed By: #### L 100.0100, L500.2500 ####[facility] [address] [place], [address] GAP Normal 5-15 [facility] Comment on above: Order Comment: REORD ERED Result Comment: REOR DERED Performed By: #### L 100.0100, L500.2500 ####[facility] [address] [place], [address] Potassium Normal 3.5-5.1 [facility] Comment on above: Order Comment: REORD ERED Result Comment: REOR DERED Performed By: #### L 100.0100, L500.2500 ####[facility] [address] [place], [address] Basic Metabolic Profile (BMP) Normal 136-145 [facility] Comment on above: Order Comment: REORD ERED Result Comment: REOR DERED Performed By: #### L 100.0100, L500.2500 ####[facility] [address] [place], [address] Bedside Glucoseon 07-19-2024 FINGERSTICK GLU 135 mg/dL High 74-106 [facility] Comment on above: Result Comment: FANG GEMENT OF PATIENT CARE PER NURSING PROTOCOL Performed By: #### L 501.080 ####[facility] [address] [place], [address] FINGERSTICK GLU 227 mg/dL High 74-106 [facility] Comment on above: Result Comment: FANG GEMENT OF PATIENT CARE PER NURSING PROTOCOL Performed By: #### L 501.080 ####[facility] [address] [place], [address] FINGERSTICK GLU 120 mg/dL High 74-106 [facility] Comment on above: Result Comment: FANG GEMENT OF PATIENT CARE PER NURSING PROTOCOL Performed By: #### L 501.080 ####[facility] [address] [place], [address] CBC W/Diff, Automatedon 02-2 Absolute Lymph 2.07 X10 3/uL Normal 0.83-4.51 [facility] Comment on above: Performed By: #### L 100.0100, L500.2500 ####[facility] [address] [place], [address] Absolute Neut 13.1 X10 3/uL High 2.0-7.7 [facility] Comment on above: Performed By: #### L 100.0100, L500.2500 ####[facility] [address] [place], [address] Basophils/100 WBC (Bld) 0.5 % Normal 0-1 [facility] Comment on above: Performed By: #### L 100.0100, L500.2500 ####[facility] [address] [place], [address] Eosinophils/100 WBC (Bld) 1.6 % Normal 0-5 [facility] Comment on above: Performed By: #### L 100.0100, L500.2500 ####[facility] [address] [place], [address] Erythrocyte distribution width (RBC) [Ratio] 17.7 % High 11.6-14.6 [facility] Comment on above: Performed By: #### L 100.0100, L500.2500 ####[facility] [address] [place], [address] Hematocrit (Bld) [Volume fraction] 25.5 % Low 40-54 [facility] Comment on above: Performed By: #### L 100.0100, L500.2500 ####[facility] [address] [place], [address] Hemoglobin (Bld) [Mass/Vol] 7.7 g/dL Low 13.0-16.5 [facility] Comment on above: Performed By: #### L 100.0100, L500.2500 ####[facility] [address] [place], [address] IG% 2.300 High 0.0-0.9 [facility] Comment on above: Result Comment: IG% - Immature Granulocytes (promyelocytes, myelocytes andmetamyelocytes) > 1% indicates that a LEFT SHIFT is Present. Performed By: #### L 100.0100, L500.2500 ####[facility] [address] [place], [address] Lymphocytes/100 WBC (Bld) 12.1 % Low 19-41 [facility] Comment on above: Performed By: #### L 100.0100, L500.2500 ####[facility] [address] [place], [address] MCH (RBC) [Entitic mass] 28.1 pg Normal 27.0-32.0 [facility] Comment on above: Performed By: #### L 100.0100, L500.2500 ####[facility] [address] [place], [address] MCHC (RBC) [Mass/Vol] 30.2 g/dL Low 32-36 [facility] Comment on above: Performed By: #### L 100.0100, L500.2500 ####[facility] [address] [place], [address] MCV (RBC) [Entitic vol] 93.1 fL Normal 80-94 [facility] Comment on above: Performed By: #### L 100.0100, L500.2500 ####[facility] [address] [place], [address] Monocytes/100 WBC (Bld) 7.1 % Normal 0-10 [facility] Comment on above: Performed By: #### L 100.0100, L500.2500 ####[facility] [address] [place], [address] Neutrophils/100 WBC (Bld) 76.4 % High 47-70 [facility] Comment on above: Performed By: #### L 100.0100, L500.2500 ####[facility] [address] [place], [address] Nucleated RBC (Bld) [#/Vol] 0 10*3/uL Normal 0-5 [facility] Comment on above: Performed By: #### L 100.0100, L500.2500 ####[facility] [address] [place], [address] Platelet mean volume (Bld) [Entitic vol] 10.6 fL Normal 6.2-12.0 [facility] Comment on above: Performed By: #### L 100.0100, L500.2500 ####[facility] [address] [place], [address] Platelets (Bld) [#/Vol] 467 10*3/uL High 150-450 [facility] Comment on above: Performed By: #### L 100.0100, L500.2500 ####[facility] [address] [place], [address] RBC (Bld) [#/Vol] 2.74 10*6/uL Low 4.6-6.2 [facility] Comment on above: Performed By: #### L 100.0100, L500.2500 ####[facility] [address] [place], [address] RDW SD 59.6 fl High 35.1-43.9 [facility] Comment on above: Performed By: #### L 100.0100, L500.2500 ####[facility] [address] [place], [address] WBC (Bld) [#/Vol] 17.2 10*3/uL High 4.4-11.0 [facility] Comment on above: Performed By: #### L 100.0100, L500.2500 ####[facility] [address] [place], [place], [address] Serum or plasma vancomycin m easurement (mass/volume)Ordered By: Jayla Osuna on 07-19-2024 Vancomycin [Mass/Vol] 16.7 ug/mL High 0.0-15.0 [facility] Vancomycin, Random Levelon 0 07-19-2024 VANCO, RANDOM 16.7 ug/mL High 0.0-15.0 [facility] Comment on above: Result Comment: VANC OMYCIN STANDARD DRUG THERAPY: CRITICAL VALUE IS > 15.0 mg/LVANCOMYCIN HIGH INTENSITY THERAPY: CRITICAL VALUE IS > 20.0 mg/LPLEASE CONTACT PHARMACY SERVICES (#7878) FOR INTERPRETATIONOF RESULTS. THIS RESULT DOES NOT REPRESENT A PEAK OR TROUGHLEVEL FOR THIS DRUG. Performed By: #### L 501.8850 ####[facility] [address] [place], [address] Basic Metabolic Profile (BMP )on 07-18-2024 GFR/1.73 sq M.predicted among non-blacks MDRD (S/P/Bld) [Vol rate/Area] 12 mL/min/{1.73_m2} Low >60 [facility] Comment on above: Order Comment: WILL REORDER Result Comment: WILL REORDERmL/min/1.73m2 CKD-EPI Creatinine Equation (2020) Performed By: #### L 100.0100, L500.2500 ####[facility] [address] [place], [place], [address] Calcium Normal 8.5-10.1 [facility] Comment on above: Order Comment: WILL REORDER Result Comment: WILL REORDER Performed By: #### L 100.0100, L500.2500 ####[facility] [address] [place], [address] CL Normal 98-107 [facility] Comment on above: Order Comment: WILL REORDER Result Comment: WILL REORDER Performed By: #### L 100.0100, L500.2500 ####[facility] [address] [place], [address] CO2 Normal 21.0-32.0 [facility] Comment on above: Order Comment: WILL REORDER Result Comment: WILL REORDER Performed By: #### L 100.0100, L500.2500 ####[facility] [address] [place], [address] EST GFR - AA Normal >60 [facility] Comment on above: Order Comment: WILL REORDER Result Comment: WILL REORDER Performed By: #### L 100.0100, L500.2500 ####[facility] [address] [place], [address] GAP Normal 5-15 [facility] Comment on above: Order Comment: WILL REORDER Result Comment: WILL REORDER Performed By: #### L 100.0100, L500.2500 ####[facility] [address] [place], [address] Potassium Normal 3.5-5.1 [facility] Comment on above: Order Comment: WILL REORDER Result Comment: WILL REORDER Performed By: #### L 100.0100, L500.2500 ####[facility] [address] [place], [address] Basic Metabolic Profile (BMP) Normal 136-145 [facility] Comment on above: Order Comment: WILL REORDER Result Comment: WILL REORDER Performed By: #### L 100.0100, L500.2500 ####[facility] [address] [place], [address] Bedside Glucoseon 07-18-2024 FINGERSTICK GLU 110 mg/dL High 74-106 [facility] Comment on above: Result Comment: FANG GEMENT OF PATIENT CARE PER NURSING PROTOCOL Performed By: #### L 501.080 ####[facility] [address] [place], [address] FINGERSTICK GLU 156 mg/dL High 74-106 [facility] Comment on above: Result Comment: FANG GEMENT OF PATIENT CARE PER NURSING PROTOCOL Performed By: #### L 501.080 ####[facility] [address], [address] FINGERSTICK GLU 139 mg/dL High 74-106 [facility] Comment on above: Result Comment: FANG GEMENT OF PATIENT CARE PER NURSING PROTOCOL Performed By: #### L 501.080 ####[facility] [address] [place], [address] FINGERSTICK GLU 155 mg/dL High 74-106 [facility] Comment on above: Result Comment: FANG GEMENT OF PATIENT CARE PER NURSING PROTOCOL Performed By: #### L 501.080 ####[facility] [address], [address] FINGERSTICK GLU 229 mg/dL High -106 [facility] Comment on above: Result Comment: FANG GEMENT OF PATIENT CARE PER NURSING PROTOCOL Performed By: #### L 501.080 ####[facility] [address] [place], [address] Body Tissue Cultureon 2024 [facility] Normal [facility] Comment on above: Performed By: #### M 100.2910, M100.4001, M100.2000 ####[facility] [address] [place], [address] CBC W/Diff, Automatedon 06-24 PATH REV Reviewed Normal [facility] Comment on above: Result Comment: Neut rophilic leukocytosis with left shift.Normocytic anemia.Clinical correlation necessary.Jose Souza M.D. 07/18/24 AMENDED REPORT 07/18/24 1335 PATH REV previously reported as: Michelle dowling Performed By: #### L 100.0100, L500.2500 ####[facility] [address] [place], [address] Culture, Anaerobic Any Sourc reed 02-26-2025 CUAN Normal [facility] Comment on above: Performed By: #### M 100.4001, M100.2000, M100.3000 ####[facility] [address] [place], [address] Review by pathologistOrdered By: Jayla Osuna on 07-18-2024 Pathologist review Jeff (Unsp spec) [Interp] Reviewed [facility] Wound Cultureon 07-18-2024 WC Normal [facility] Comment on above: Performed By: #### M 100.4001, M100.3000, M1.1999 ####[facility] [address] [place], [address] WC Normal [facility] Comment on above: Performed By: #### M 100.2000, M100.3000, M100.4001 ####[facility] [address] [place], [address] Ankle Brachial Indexon 07-17 Ankle Brachial Index Normal [facility] Basic Metabolic Profile (BMP )on 07-17-2024 BUN/CRE 13.3 RATIO Normal 10-20 [facility] Comment on above: Performed By: #### L 500.2500, L100.0100 ####[facility] [address] [place], [address] CA,Total 8.3 mg/dL Low 8.5-10.1 [facility] Comment on above: Performed By: #### L 500.2500, L100.0100 ####[facility] [address] [place], [address] Chloride [Moles/Vol] 97 mmol/L Low 98-107 [facility] Comment on above: Performed By: #### L 500.2500, L100.0100 ####[facility] [address] [place], [address] CO2 [Moles/Vol] 25.0 mmol/L Normal 21.0-32.0 [facility] Comment on above: Performed By: #### L 500.2500, L100.0100 ####[facility] [address] [place], [address] Creatinine [Mass/Vol] 6.15 mg/dL High 0.70-1.30 [facility] Comment on above: Result Comment: The validity of the calculated GFR GFRAA in patients over70 years has not been determined. Clinical correlation isessential. Performed By: #### L 500.2500, L100.0100 ####[facility] [address] [place], [address] ECRCL 9.33 ml/min Normal [facility] Comment on above: Performed By: #### L 500.2500, L100.0100 ####[facility] [address] [place], [address] EST GFR - AA 11 mL/min Low >60 [facility] Comment on above: Result Comment: Afri can Senegalese GFR Calc Performed By: #### L 500.2500, L100.0100 ####[facility] [address] [place], [address] GAP 8 Normal 5-15 [facility] Comment on above: Performed By: #### L 500.2500, L100.0100 ####[facility] [address] [place], [address] GFR/1.73 sq M.predicted among non-blacks MDRD (S/P/Bld) [Vol rate/Area] 9 mL/min/{1.73_m2} Low >60 [facility] Comment on above: Result Comment: Non- GFR Calc Performed By: #### L 500.2500, L100.0100 ####[facility] [address] [place], [address] Glucose [Mass/Vol] 213 mg/dL High 74-106 [facility] Comment on above: Result Comment: Gluc ose result greater than or equal to 200 mg/dLsuggests DIABETES MELLITUS per A.D.A. criteria. Performed By: #### L 500.2500, L100.0100 ####[facility] [address] [place], [address] Potassium [Moles/Vol] 5.1 mmol/L Normal 3.5-5.1 [facility] Comment on above: Performed By: #### L 500.2500, L100.0100 ####[facility] [address] [place], [address] Sodium [Moles/Vol] 130 mmol/L Low 136-145 [facility] Comment on above: Performed By: #### L 500.2500, L100.0100 ####[facility] [address] [place], [address] Urea nitrogen [Mass/Vol] 82 mg/dL High 7-18 [facility] Comment on above: Performed By: #### L 500.2500, L100.0100 ####[facility] [address] [place], [address] Bedside Glucoseon 07-17-2024 FINGERSTICK GLU 119 mg/dL High 74-106 [facility] Comment on above: Result Comment: FANG GEMENT OF PATIENT CARE PER NURSING PROTOCOL Performed By: #### L 501.080 ####[facility] [address] [place], [address] FINGERSTICK GLU 226 mg/dL High 74-106 [facility] Comment on above: Result Comment: FANG GEMENT OF PATIENT CARE PER NURSING PROTOCOL Performed By: #### L 501.080 ####[facility] [address] [place], [address] FINGERSTICK GLU 203 mg/dL High 74-106 [facility] Comment on above: Result Comment: FANG GEMENT OF PATIENT CARE PER NURSING PROTOCOL Performed By: #### L 501.080 ####[facility] [address] [place], [address] FINGERSTICK GLU 208 mg/dL High 74-106 [facility] Comment on above: Result Comment: FANG VAZQUEZ OF PATIENT CARE PER NURSING PROTOCOL Performed By: #### L 501.080 ####[facility] [address] [place], [address] Blood cultureOrdered By: Rosales Shore on 07-17-2024 Bacteria identified Cx Nom (Bld) No growth in 5 days. [facility] CBC W/Diff, Automatedon 06-24 Absolute Lymph 2.11 X10 3/uL Normal 0.83-4.51 [facility] Comment on above: Performed By: #### L 500.2500, L100.0100 ####[facility] [address] [place], [address] Absolute Neut 17.0 X10 3/uL High 2.0-7.7 [facility] Comment on above: Performed By: #### L 500.2500, L100.0100 ####[facility] [address] [place], [address] Basophils/100 WBC (Bld) 0.3 % Normal 0-1 [facility] Comment on above: Performed By: #### L 500.2500, L100.0100 ####[facility] [address] [place], [address] Eosinophils/100 WBC (Bld) 0.6 % Normal 0-5 [facility] Comment on above: Performed By: #### L 500.2500, L100.0100 ####[facility] [address] [place], [address] Erythrocyte distribution width (RBC) [Ratio] 17.7 % High 11.6-14.6 [facility] Comment on above: Performed By: #### L 500.2500, L100.0100 ####[facility] [address] [place], [address] Hematocrit (Bld) [Volume fraction] 23.7 % Low 40-54 [facility] Comment on above: Performed By: #### L 500.2500, L100.0100 ####[facility] [address] [place], [address] Hemoglobin (Bld) [Mass/Vol] 7.1 g/dL Low 13.0-16.5 [facility] Comment on above: Performed By: #### L 500.2500, L100.0100 ####[facility] [address] [place], [address] IG% 2.800 High 0.0-0.9 [facility] Comment on above: Result Comment: IG% - Immature Granulocytes (promyelocytes, myelocytes andmetamyelocytes) > 1% indicates that a LEFT SHIFT is Present. Performed By: #### L 500.2500, L100.0100 ####[facility] [address] [place], [address] Lymphocytes/100 WBC (Bld) 9.9 % Low 19-41 [facility] Comment on above: Performed By: #### L 500.2500, L100.0100 ####[facility] [address] [place], [address] MCH (RBC) [Entitic mass] 27.8 pg Normal 27.0-32.0 [facility] Comment on above: Performed By: #### L 500.2500, L100.0100 ####[facility] [address] [place], [address] MCHC (RBC) [Mass/Vol] 30.0 g/dL Low 32-36 [facility] Comment on above: Performed By: #### L 500.2500, L100.0100 ####[facility] [address] [place], [address] MCV (RBC) [Entitic vol] 92.9 fL Normal 80-94 [facility] Comment on above: Performed By: #### L 500.2500, L100.0100 ####[facility] [address] [place], [address] Monocytes/100 WBC (Bld) 6.6 % Normal 0-10 [facility] Comment on above: Performed By: #### L 500.2500, L100.0100 ####[facility] [address] [place], [address] Neutrophils/100 WBC (Bld) 79.8 % High 47-70 [facility] Comment on above: Performed By: #### L 500.2500, L100.0100 ####[facility] [address] [place], [address] Nucleated RBC (Bld) [#/Vol] 0 10*3/uL Normal 0-5 [facility] Comment on above: Performed By: #### L 500.2500, L100.0100 ####[facility] [address] [place], [address] Platelet mean volume (Bld) [Entitic vol] 10.7 fL Normal 6.2-12.0 [facility] Comment on above: Performed By: #### L 500.2500, L100.0100 ####[facility] [address] [place], [address] Platelets (Bld) [#/Vol] 378 10*3/uL Normal 150-450 [facility] Comment on above: Performed By: #### L 500.2500, L100.0100 ####[facility] [address] [place], [address] RBC (Bld) [#/Vol] 2.55 10*6/uL Low 4.6-6.2 [facility] Comment on above: Performed By: #### L 500.2500, L100.0100 ####[facility] [address] [place], [address] RDW SD 60.7 fl High 35.1-43.9 [facility] Comment on above: Performed By: #### L 500.2500, L100.0100 ####[facility] [address] [place], [address] WBC (Bld) [#/Vol] 21.2 10*3/uL High 4.4-11.0 [facility] Comment on above: Performed By: #### L 500.2500, L100.0100 ####[facility] [address] [place], [address] Chloride measurementOrdered By: Jayla Osuna on 07-17-2024 Chloride [Moles/Vol] 97 mmol/L Low 98-107 [facility] Gram Stainon 07-17-2024 GS UNK UNK Post-lavage Right lower extremity Gram Stain 3+ Gram positive cocci Rare White Blood Cells Normal [facility] Comment on above: Performed By: #### M 100.2000, M100.3000, M100.4001 ####[facility] [address] [place], [address] GS UNK UNK Pre-lavage right lower extremity - collected in [place] Gram Stain Rare White Blood Cells 3+ Red Blood Cells Rare Gram positive cocci Normal [facility] Comment on above: Performed By: #### M 100.4001, M100.3000, M1.1999 ####[facility] [address] [place], [address] GS Reason for Exam: Infection of right lower extremity Bone cortex right lower extremity Gram Stain 4+ Gram positive cocci Rare Gram negative rods No White Blood Cells Normal [facility] Comment on above: Performed By: #### M 100.2910, M100.4001, M1.1999 ####[facility] [address] [place], [address] US Art Duplex Bilat Lower Ex ton 07-17-2024 US Art Duplex Bilat Lower Ext Normal [facility] Vancomycin, Random Levelon 0 07-17-2024 VANCO, RANDOM 13.2 ug/mL Normal 0.0-15.0 [facility] Comment on above: Result Comment: VANC OMYCIN STANDARD DRUG THERAPY: CRITICAL VALUE IS > 15.0 mg/LVANCOMYCIN HIGH INTENSITY THERAPY: CRITICAL VALUE IS > 20.0 mg/LPLEASE CONTACT PHARMACY SERVICES (#4155) FOR INTERPRETATIONOF RESULTS. THIS RESULT DOES NOT REPRESENT A PEAK OR TROUGHLEVEL FOR THIS DRUG. Performed By: #### L 501.8850 ####[facility] [address] [place], [address] 12 Lead EKGon 07-16-2024 12 Lead EKG Normal [facility] Activated partial thrombopla stin time (aPTT) in platelet poor plasma by coagulation aOrdered By: Flavio Young on 07-16-2024 aPTT Coag (PPP) [Time] 39.7 s High 24.1-36.2 [facility] Anaerobic cultureOrdered By: Josef Garcia on 07-16-2024 Bacteria identified Anaer cx Nom (Unsp spec) Clostridium cadaveris Abnormal [facility] Bacteria identified Anaer cx Nom (Unsp spec) No anaerobic bacteria isolated. [facility] Bacterial tissue aerobic cul tureOrdered By: Josef Garcia on 07-16-2024 Bacteria identified Aer cx Nom (Tiss) Meth. resistant Staph. aureus Abnormal [facility] Basic Metabolic Profile (BMP )on 07-16-2024 BUN/CRE 13.8 RATIO Normal 10-20 [facility] Comment on above: Performed By: #### L 100.0100, L500.2500 ####[facility] [address] [place], [address] CA,Total 8.7 mg/dL Normal 8.5-10.1 [facility] Comment on above: Performed By: #### L 100.0100, L500.2500 ####[facility] [address] [place], [address] Chloride [Moles/Vol] 97 mmol/L Low 98-107 [facility] Comment on above: Performed By: #### L 100.0100, L500.2500 ####[facility] [address] [place], [address] CO2 [Moles/Vol] 26.0 mmol/L Normal 21.0-32.0 [facility] Comment on above: Performed By: #### L 100.0100, L500.2500 ####[facility] [address] [place], [address] Creatinine [Mass/Vol] 5.13 mg/dL High 0.70-1.30 [facility] Comment on above: Result Comment: The validity of the calculated GFR GFRAA in patients over70 years has not been determined. Clinical correlation isessential. Performed By: #### L 100.0100, L500.2500 ####[facility] [address] [place], [address] ECRCL 11.13 ml/min Normal [facility] Comment on above: Performed By: #### L 100.0100, L500.2500 ####[facility] [address] [place], [address] EST GFR - AA 14 mL/min Low >60 [facility] Comment on above: Result Comment: Afri can Senegalese GFR Calc Performed By: #### L 100.0100, L500.2500 ####[facility] [address] [place], [address] GAP 11 Normal 5-15 [facility] Comment on above: Performed By: #### L 100.0100, L500.2500 ####[facility] [address] [place], [address] GFR/1.73 sq M.predicted among non-blacks MDRD (S/P/Bld) [Vol rate/Area] 11 mL/min/{1.73_m2} Low >60 [facility] Comment on above: Result Comment: Non- GFR Calc Performed By: #### L 100.0100, L500.2500 ####[facility] [address], [address] Glucose [Mass/Vol] 127 mg/dL High 74-106 [facility] Comment on above: Result Comment: Fast ing Glucose result greater than or equal to 126 mg/dLsuggests DIABETES MELLITUS per A.D.A. criteria. Performed By: #### L 100.0100, L500.2500 ####[facility] [address] [place], [address] Potassium [Moles/Vol] 4.3 mmol/L Normal 3.5-5.1 [facility] Comment on above: Performed By: #### L 100.0100, L500.2500 ####[facility] [address], [address] Sodium [Moles/Vol] 134 mmol/L Low 136-145 [facility] Comment on above: Performed By: #### L 100.0100, L500.2500 ####[facility] [address] [place], [address] Urea nitrogen [Mass/Vol] 71 mg/dL High 7-18 [facility] Comment on above: Performed By: #### L 100.0100, L500.2500 ####[facility] [address] [place], [address] Bedside Glucoseon 07-16-2024 FINGERSTICK GLU 105 mg/dL Normal 74-106 [facility] Comment on above: Result Comment: FANG VAZQUEZ OF PATIENT CARE PER NURSING PROTOCOL Performed By: #### L 501.080 ####[facility] [address] [place], [address] FINGERSTICK GLU 118 mg/dL High 74-106 [facility] Comment on above: Result Comment: FANG GEMENT OF PATIENT CARE PER NURSING PROTOCOL Performed By: #### L 501.080 ####[facility] [address] [place], [address] FINGERSTICK GLU 122 mg/dL High 74-106 [facility] Comment on above: Result Comment: FANG GEMENT OF PATIENT CARE PER NURSING PROTOCOL Performed By: #### L 501.080 ####[facility] [address] [place], [address] Blood cultureOrdered By: Rosales Shore on 07-16-2024 Bacteria identified Cx Nom (Bld) No growth in 5 days. [facility] CBC W/Diff, Automatedon 06-24 PATH REV Reviewed Normal [facility] Comment on above: Result Comment: Neut rophilic leukocytosis with left shift.Normocytic anemia.Clinical correlation necessary.Jose Souza M.D. 07/16/24 AMENDED REPORT 07/16/24 1406 PATH REV previously reported as: September Performed By: #### L 101.9900, L501.6710, L500.2500, L100.0100 ####[facility] [address] [place], [address] Absolute Lymph 2.43 X10 3/uL Normal 0.83-4.51 [facility] Comment on above: Performed By: #### L 100.0100, L500.2500 ####[facility] [address] [place], [address] Absolute Neut 12.8 X10 3/uL High 2.0-7.7 [facility] Comment on above: Performed By: #### L 100.0100, L500.2500 ####[facility] [address] [place], [address] Basophils/100 WBC (Bld) 0.2 % Normal 0-1 [facility] Comment on above: Performed By: #### L 100.0100, L500.2500 ####[facility] [address] [place], [address] Eosinophils/100 WBC (Bld) 1.6 % Normal 0-5 [facility] Comment on above: Performed By: #### L 100.0100, L500.2500 ####[facility] [address] [place], [address] Erythrocyte distribution width (RBC) [Ratio] 17.7 % High 11.6-14.6 [facility] Comment on above: Performed By: #### L 100.0100, L500.2500 ####[facility] [address] [place], [address] Hematocrit (Bld) [Volume fraction] 25.2 % Low 40-54 [facility] Comment on above: Performed By: #### L 100.0100, L500.2500 ####[facility] [address] [place], [address] Hemoglobin (Bld) [Mass/Vol] 7.5 g/dL Low 13.0-16.5 [facility] Comment on above: Performed By: #### L 100.0100, L500.2500 ####[facility] [address] [place], [address] IG% 3.200 High 0.0-0.9 [facility] Comment on above: Result Comment: IG% - Immature Granulocytes (promyelocytes, myelocytes andmetamyelocytes) > 1% indicates that a LEFT SHIFT is Present. Performed By: #### L 100.0100, L500.2500 ####[facility] [address] [place], [address] Lymphocytes/100 WBC (Bld) 14.0 % Low 19-41 [facility] Comment on above: Performed By: #### L 100.0100, L500.2500 ####[facility] [address] [place], [address] MCH (RBC) [Entitic mass] 28.2 pg Normal 27.0-32.0 [facility] Comment on above: Performed By: #### L 100.0100, L500.2500 ####[facility] [address] [place], [address] MCHC (RBC) [Mass/Vol] 29.8 g/dL Low 32-36 [facility] Comment on above: Performed By: #### L 100.0100, L500.2500 ####[facility] [address] [place], [address] MCV (RBC) [Entitic vol] 94.7 fL High 80-94 [facility] Comment on above: Performed By: #### L 100.0100, L500.2500 ####[facility] [address] [place], [address] Monocytes/100 WBC (Bld) 7.5 % Normal 0-10 [facility] Comment on above: Performed By: #### L 100.0100, L500.2500 ####[facility] [address] [place], [address] Neutrophils/100 WBC (Bld) 73.5 % High 47-70 [facility] Comment on above: Performed By: #### L 100.0100, L500.2500 ####[facility] [address] [place], [address] Nucleated RBC (Bld) [#/Vol] 0 10*3/uL Normal 0-5 [facility] Comment on above: Performed By: #### L 100.0100, L500.2500 ####[facility] [address] [place], [address] Platelet mean volume (Bld) [Entitic vol] 10.6 fL Normal 6.2-12.0 [facility] Comment on above: Performed By: #### L 100.0100, L500.2500 ####[facility] [address] [place], [address] Platelets (Bld) [#/Vol] 378 10*3/uL Normal 150-450 [facility] Comment on above: Performed By: #### L 100.0100, L500.2500 ####[facility] [address] [place], [address] RBC (Bld) [#/Vol] 2.66 10*6/uL Low 4.6-6.2 [facility] Comment on above: Performed By: #### L 100.0100, L500.2500 ####[facility] [address] [place], [address] RDW SD 60.4 fl High 35.1-43.9 [facility] Comment on above: Performed By: #### L 100.0100, L500.2500 ####[facility] [address] [place], [address] WBC (Bld) [#/Vol] 17.4 10*3/uL High 4.4-11.0 [facility] Comment on above: Performed By: #### L 100.0100, L500.2500 ####[facility] [address] [place], [address] Consultation - Infectious Dx on 07-16-2024 Consultation - Infectious Dx Normal [facility] Consultation - Nephrologyon 07-16-2024 Consultation - Nephrology Normal [facility] Culture, Blood (WB)on 2024 CUB Normal [facility] Comment on above: Performed By: #### M 200.1000, M100.636 ####[facility] [address] [place], [address] Foot 2 Viewson 07-16-2024 Foot 2 Views Normal [facility] Gram stainOrdered By: Kesha Garcia on 07-16-2024 Microscopic observation Gram stain Nom (Unsp spec) [facility] Hemoglobin A1con 07-16-2024 HbA1c (Bld) [Mass fraction] 6.0 % High 3.8-5.6 [facility] Comment on above: Order Comment: Comme nts: Pre-operative Result Comment: Norm al < 5.7 % Prediabetic 5.7 - 6.4 % Diabetic >or= 6.5 % Please note range changes. Performed By: #### L 300.3900, L501.9985, L300.4310 ####[facility] [address] [place], [address] Hemoglobin A1c percentageOrd ered By: Flavio Young on 07-16-2024 HbA1c (Bld) [Mass fraction] 6.0 % High 3.8-5.6 [facility] MR/POSTOP.ANEon 07-16-2024 MR/POSTOP.ANE Normal [facility] MR/WPPPQZSZ0ud 07-16-2024 MR/POSTOPAN2 Normal [facility] Operative Reporton Operative Report Normal [facility] Partial Thromboplast Timeon 07-16-2024 aPTT Coag (Bld) [Time] 39.7 s High 24.1-36.2 [facility] Comment on above: Order Comment: Comme nts: Pre-operative Performed By: #### L 300.3900, L501.9985, L300.4310 ####[facility] [address] [place], [address] Prothrombin Time w/INRon INR Coag (PPP) [Relative time] 1.3 {INR} Normal [facility] Comment on above: Order Comment: Comme nts: Pre-operative Performed By: #### L 300.3900, L501.9985, L300.4310 ####[facility] [address] [place], [address] PT Coag (PPP) [Time] 16.8 s High 11.7-14.9 [facility] Comment on above: Order Comment: Comme nts: Pre-operative Performed By: #### L 300.3900, L501.9985, L300.4310 ####[facility] [address] [place], [address] Prothrombin timeOrdered By: Flavio Young on 07-16-2024 PT Coag (PPP) [Time] 16.8 s High 11.7-14.9 [facility] Routine wound cultureOrdered By: Josef Garcia on 07-16-2024 Microbial culture, routine Meth. resistant Staph. aureus Abnormal [facility] Basic Metabolic Profile (BMP )on 07-15-2024 BUN/CRE 13.9 RATIO Normal 10-20 [facility] Comment on above: Performed By: #### L 500.2500, L100.0100 ####[facility] [address] [place], [address] CA,Total 8.8 mg/dL Normal 8.5-10.1 [facility] Comment on above: Performed By: #### L 500.2500, L100.0100 ####[facility] [address] [place], [address] Chloride [Moles/Vol] 98 mmol/L Normal 98-107 [facility] Comment on above: Performed By: #### L 500.2500, L100.0100 ####[facility] [address] [place], [address] CO2 [Moles/Vol] 27.0 mmol/L Normal 21.0-32.0 [facility] Comment on above: Performed By: #### L 500.2500, L100.0100 ####[facility] [address] [place], [address] Creatinine [Mass/Vol] 3.97 mg/dL High 0.70-1.30 [facility] Comment on above: Result Comment: The validity of the calculated GFR GFRAA in patients over70 years has not been determined. Clinical correlation isessential. Performed By: #### L 500.2500, L100.0100 ####[facility] [address] [place], [address] ECRCL 14.64 ml/min Normal [facility] Comment on above: Performed By: #### L 500.2500, L100.0100 ####[facility] [address] [place], [address] EST GFR - AA 19 mL/min Low >60 [facility] Comment on above: Result Comment: Afri can Senegalese GFR Calc Performed By: #### L 500.2500, L100.0100 ####[facility] [address] [place], [address] GAP 9 Normal 5-15 [facility] Comment on above: Performed By: #### L 500.2500, L100.0100 ####[facility] [address] [place], [address] GFR/1.73 sq M.predicted among non-blacks MDRD (S/P/Bld) [Vol rate/Area] 15 mL/min/{1.73_m2} Low >60 [facility] Comment on above: Result Comment: Non- GFR Calc Performed By: #### L 500.2500, L100.0100 ####[facility] [address] [place], [address] Glucose [Mass/Vol] 204 mg/dL High 74-106 [facility] Comment on above: Result Comment: Gluc ose result greater than or equal to 200 mg/dLsuggests DIABETES MELLITUS per A.D.A. criteria. Performed By: #### L 500.2500, L100.0100 ####[facility] [address] [place], [address] Potassium [Moles/Vol] 3.5 mmol/L Normal 3.5-5.1 [facility] Comment on above: Performed By: #### L 500.2500, L100.0100 ####[facility] [address] [place], [address] Sodium [Moles/Vol] 133 mmol/L Low 136-145 [facility] Comment on above: Performed By: #### L 500.2500, L100.0100 ####[facility] [address] [place], [address] Urea nitrogen [Mass/Vol] 55 mg/dL High 7-18 [facility] Comment on above: Performed By: #### L 500.2500, L100.0100 ####[facility] [address] [place], [address] Bedside Glucoseon 07-15-2024 FINGERSTICK GLU 138 mg/dL High 74-106 [facility] Comment on above: Result Comment: FANG GEMENT OF PATIENT CARE PER NURSING PROTOCOL Performed By: #### L 501.080 ####[facility] [address] [place], [address] FINGERSTICK GLU 57 mg/dL Low 74-106 [facility] Comment on above: Result Comment: FANG GEMENT OF PATIENT CARE PER NURSING PROTOCOL Performed By: #### L 501.080 ####[facility] [address] [place], [address] FINGERSTICK GLU 141 mg/dL High 74-106 [facility] Comment on above: Result Comment: FANG GEMENT OF PATIENT CARE PER NURSING PROTOCOL Performed By: #### L 501.080 ####[facility] [address] [place], [address] FINGERSTICK GLU 214 mg/dL High 74-106 [facility] Comment on above: Result Comment: FANG GEMENT OF PATIENT CARE PER NURSING PROTOCOL Performed By: #### L 501.080 ####[facility] [address] [place], [address] CBC W/Diff, Automatedon 02-2 5 Absolute Lymph 2.18 X10 3/uL Normal 0.83-4.51 [facility] Comment on above: Performed By: #### L 500.2500, L100.0100 ####[facility] [address], [address] Absolute Neut 14.1 X10 3/uL High 2.0-7.7 [facility] Comment on above: Performed By: #### L 500.2500, L100.0100 ####[facility] [address] [place], [address] Basophils/100 WBC (Bld) 0.2 % Normal 0-1 [facility] Comment on above: Performed By: #### L 500.2500, L100.0100 ####[facility] [address] [place], [address] Eosinophils/100 WBC (Bld) 1.2 % Normal 0-5 [facility] Comment on above: Performed By: #### L 500.2500, L100.0100 ####[facility] [address] [place], [address] Erythrocyte distribution width (RBC) [Ratio] 17.6 % High 11.6-14.6 [facility] Comment on above: Performed By: #### L 500.2500, L100.0100 ####[facility] [address] [place], [address] Hematocrit (Bld) [Volume fraction] 26.7 % Low 40-54 [facility] Comment on above: Performed By: #### L 500.2500, L100.0100 ####[facility] [address] [place], [address] Hemoglobin (Bld) [Mass/Vol] 7.8 g/dL Low 13.0-16.5 [facility] Comment on above: Performed By: #### L 500.2500, L100.0100 ####[facility] [address] [place], [address] IG% 2.500 High 0.0-0.9 [facility] Comment on above: Result Comment: IG% - Immature Granulocytes (promyelocytes, myelocytes andmetamyelocytes) > 1% indicates that a LEFT SHIFT is Present. Performed By: #### L 500.2500, L100.0100 ####[facility] [address] [place], [address] Lymphocytes/100 WBC (Bld) 11.9 % Low 19-41 [facility] Comment on above: Performed By: #### L 500.2500, L100.0100 ####[facility] [address] [place], [address] MCH (RBC) [Entitic mass] 27.9 pg Normal 27.0-32.0 [facility] Comment on above: Performed By: #### L 500.2500, L100.0100 ####[facility] [address] [place], [address] MCHC (RBC) [Mass/Vol] 29.2 g/dL Low 32-36 [facility] Comment on above: Performed By: #### L 500.2500, L100.0100 ####[facility] [address] [place], [address] MCV (RBC) [Entitic vol] 95.4 fL High 80-94 [facility] Comment on above: Performed By: #### L 500.2500, L100.0100 ####[facility] [address] [place], [address] Monocytes/100 WBC (Bld) 7.1 % Normal 0-10 [facility] Comment on above: Performed By: #### L 500.2500, L100.0100 ####[facility] [address] [place], [address] Neutrophils/100 WBC (Bld) 77.1 % High 47-70 [facility] Comment on above: Performed By: #### L 500.2500, L100.0100 ####[facility] [address] [place], [address] Nucleated RBC (Bld) [#/Vol] 0 10*3/uL Normal 0-5 [facility] Comment on above: Performed By: #### L 500.2500, L100.0100 ####[facility] [address] [place], [address] Platelet mean volume (Bld) [Entitic vol] 10.7 fL Normal 6.2-12.0 [facility] Comment on above: Performed By: #### L 500.2500, L100.0100 ####[facility] [address] [place], [address] Platelets (Bld) [#/Vol] 361 10*3/uL Normal 150-450 [facility] Comment on above: Performed By: #### L 500.2500, L100.0100 ####[facility] [address] [place], [address] RBC (Bld) [#/Vol] 2.80 10*6/uL Low 4.6-6.2 [facility] Comment on above: Performed By: #### L 500.2500, L100.0100 ####[facility] [address] [place], [address] RDW SD 61.1 fl High 35.1-43.9 [facility] Comment on above: Performed By: #### L 500.2500, L100.0100 ####[facility] [address] [place], [address] WBC (Bld) [#/Vol] 18.3 10*3/uL High 4.4-11.0 [facility] Comment on above: Performed By: #### L 500.2500, L100.0100 ####[facility] [address] [place], [address] Foot min 3 Viewson 5 Foot min 3 Views Normal [facility] Wound Cultureon 07-15-2024 WC Normal [facility] Comment on above: Performed By: #### M 100.4001, M100.2000, M100.3000 ####[facility] [address] [place], [address] BC GPC IDon 07-14-2024 BC GPC ID Normal [facility] Comment on above: Performed By: #### M 200.1000, M100.636 ####[facility] [address] [place], [address] Basic Metabolic Profile (BMP )on 07-14-2024 BUN/CRE 11.0 RATIO Normal 10-20 [facility] Comment on above: Performed By: #### L 500.2500, L100.0100 ####[facility] [address] [place], [address] CA,Total 8.6 mg/dL Normal 8.5-10.1 [facility] Comment on above: Performed By: #### L 500.2500, L100.0100 ####[facility] [address] [place], [address] Chloride [Moles/Vol] 94 mmol/L Low 98-107 [facility] Comment on above: Performed By: #### L 500.2500, L100.0100 ####[facility] [address] [place], [address] CO2 [Moles/Vol] 30.0 mmol/L Normal 21.0-32.0 [facility] Comment on above: Performed By: #### L 500.2500, L100.0100 ####[facility] [address] [place], [address] Creatinine [Mass/Vol] 4.84 mg/dL High 0.70-1.30 [facility] Comment on above: Result Comment: The validity of the calculated GFR GFRAA in patients over70 years has not been determined. Clinical correlation isessential. Performed By: #### L 500.2500, L100.0100 ####[facility] [address] [place], [address] ECRCL 11.51 ml/min Normal [facility] Comment on above: Performed By: #### L 500.2500, L100.0100 ####[facility] [address] [place], [address] EST GFR - AA 15 mL/min Low >60 [facility] Comment on above: Result Comment: Afri can [place]egalese GFR Calc Performed By: #### L 500.2500, L100.0100 ####[facility] [address] [place], [address] GAP 8 Normal 5-15 [facility] Comment on above: Performed By: #### L 500.2500, L100.0100 ####[facility] [address] [place], [address] GFR/1.73 sq M.predicted among non-blacks MDRD (S/P/Bld) [Vol rate/Area] 12 mL/min/{1.73_m2} Low >60 [facility] Comment on above: Result Comment: Non- GFR Calc Performed By: #### L 500.2500, L100.0100 ####[facility] [address] [place], [address] Glucose [Mass/Vol] 244 mg/dL High 74-106 [facility] Comment on above: Result Comment: Gluc ose result greater than or equal to 200 mg/dLsuggests DIABETES MELLITUS per A.D.A. criteria. Performed By: #### L 500.2500, L100.0100 ####[facility] [address] [place], [address] Potassium [Moles/Vol] 3.4 mmol/L Low 3.5-5.1 [facility] Comment on above: Performed By: #### L 500.2500, L100.0100 ####[facility] [address] [place], [address] Sodium [Moles/Vol] 132 mmol/L Low 136-145 [facility] Comment on above: Performed By: #### L 500.2500, L100.0100 ####[facility] [address] [place], [address] Urea nitrogen [Mass/Vol] 53 mg/dL High 7-18 [facility] Comment on above: Performed By: #### L 500.2500, L100.0100 ####[facility] [address], [address] Bedside Glucoseon 07-14-2024 FINGERSTICK GLU 196 mg/dL High 74-106 [facility] Comment on above: Result Comment: FANG GEMENT OF PATIENT CARE PER NURSING PROTOCOL Performed By: #### L 501.080 ####[facility] [address] [place], [address] FINGERSTICK GLU 103 mg/dL Normal 74-106 [facility] Comment on above: Result Comment: FANG GEMENT OF PATIENT CARE PER NURSING PROTOCOL Performed By: #### L 501.080 ####[facility] [address] [place], [address] FINGERSTICK GLU 183 mg/dL High 74-106 [facility] Comment on above: Result Comment: FANG GEMENT OF PATIENT CARE PER NURSING PROTOCOL Performed By: #### L 501.080 ####[facility] [address] [place], [address] FINGERSTICK GLU 239 mg/dL High 74-106 [facility] Comment on above: Result Comment: FANG VAZQUEZ OF PATIENT CARE PER NURSING PROTOCOL Performed By: #### L 501.080 ####[facility] [address] [place], [address] CBC W/Diff, Automatedon 06-24 Absolute Lymph 1.49 X10 3/uL Normal 0.83-4.51 [facility] Comment on above: Performed By: #### L 500.2500, L100.0100 ####[facility] [address] [place], [address] Absolute Neut 14.7 X10 3/uL High 2.0-7.7 [facility] Comment on above: Performed By: #### L 500.2500, L100.0100 ####[facility] [address] [place], [address] Basophils/100 WBC (Bld) 0.2 % Normal 0-1 [facility] Comment on above: Performed By: #### L 500.2500, L100.0100 ####[facility] [address] [place], [address] Eosinophils/100 WBC (Bld) 0.9 % Normal 0-5 [facility] Comment on above: Performed By: #### L 500.2500, L100.0100 ####[facility] [address] [place], [address] Erythrocyte distribution width (RBC) [Ratio] 17.6 % High 11.6-14.6 [facility] Comment on above: Performed By: #### L 500.2500, L100.0100 ####[facility] [address] [place], [address] Hematocrit (Bld) [Volume fraction] 25.3 % Low 40-54 [facility] Comment on above: Performed By: #### L 500.2500, L100.0100 ####[facility] [address] [place], [address] Hemoglobin (Bld) [Mass/Vol] 7.8 g/dL Low 13.0-16.5 [facility] Comment on above: Performed By: #### L 500.2500, L100.0100 ####[facility] [address] [place], [address] IG% 3.300 High 0.0-0.9 [facility] Comment on above: Result Comment: IG% - Immature Granulocytes (promyelocytes, myelocytes andmetamyelocytes) > 1% indicates that a LEFT SHIFT is Present. Performed By: #### L 500.2500, L100.0100 ####[facility] [address] [place], [address] Lymphocytes/100 WBC (Bld) 8.2 % Low 19-41 [facility] Comment on above: Performed By: #### L 500.2500, L100.0100 ####[facility] [address] [place], [address] MCH (RBC) [Entitic mass] 28.8 pg Normal 27.0-32.0 [facility] Comment on above: Performed By: #### L 500.2500, L100.0100 ####[facility] [address] [place], [address] MCHC (RBC) [Mass/Vol] 30.8 g/dL Low 32-36 [facility] Comment on above: Performed By: #### L 500.2500, L100.0100 ####[facility] [address] [place], [address] MCV (RBC) [Entitic vol] 93.4 fL Normal 80-94 [facility] Comment on above: Performed By: #### L 500.2500, L100.0100 ####[facility] [address] [place], [address] Monocytes/100 WBC (Bld) 7.2 % Normal 0-10 [facility] Comment on above: Performed By: #### L 500.2500, L100.0100 ####[facility] [address] [place], [address] Neutrophils/100 WBC (Bld) 80.2 % High 47-70 [facility] Comment on above: Performed By: #### L 500.2500, L100.0100 ####[facility] [address] [place], [address] Nucleated RBC (Bld) [#/Vol] 0 10*3/uL Normal 0-5 [facility] Comment on above: Performed By: #### L 500.2500, L100.0100 ####[facility] [address] [place], [address] Platelet mean volume (Bld) [Entitic vol] 10.6 fL Normal 6.2-12.0 [facility] Comment on above: Performed By: #### L 500.2500, L100.0100 ####[facility] [address] [place], [address] Platelets (Bld) [#/Vol] 346 10*3/uL Normal 150-450 [facility] Comment on above: Performed By: #### L 500.2500, L100.0100 ####[facility] [address] [place], [address] RBC (Bld) [#/Vol] 2.71 10*6/uL Low 4.6-6.2 [facility] Comment on above: Performed By: #### L 500.2500, L100.0100 ####[facility] [address] [place], [address] RDW SD 59.7 fl High 35.1-43.9 [facility] Comment on above: Performed By: #### L 500.2500, L100.0100 ####[facility] [address] [place], [address] WBC (Bld) [#/Vol] 18.3 10*3/uL High 4.4-11.0 [facility] Comment on above: Performed By: #### L 500.2500, L100.0100 ####[facility] [address] [place], [address] Echo Completeon 07-14-2024 Echo Complete Normal [facility] Gram Stainon 07-14-2024 GS Gram Stain 1+ Gram positive rods 4+ Gram positive cocci Rare White Blood Cells No Epithelial cells Normal [facility] Comment on above: Performed By: #### M 100.4001, M100.2000, M100.3000 ####[facility] [address] [place], [address] Vancomycin, Random Levelon 0 07-14-2024 VANCO, RANDOM 15.3 ug/mL High 0.0-15.0 [facility] Comment on above: Order Comment: Comme nts: please draw with AM labs Result Comment: VANC OMYCIN STANDARD DRUG THERAPY: CRITICAL VALUE IS > 15.0 mg/LVANCOMYCIN HIGH INTENSITY THERAPY: CRITICAL VALUE IS > 20.0 mg/LPLEASE CONTACT PHARMACY SERVICES (#6841) FOR INTERPRETATIONOF RESULTS. THIS RESULT DOES NOT REPRESENT A PEAK OR TROUGHLEVEL FOR THIS DRUG. Performed By: #### L 501.8850 ####[facility] [address] [place], [address] Anaerobic cultureOrdered By: Chung Humphreys on 07-13-2024 Bacteria identified Anaer cx Nom (Unsp spec) Clostridium perfringens Abnormal [facility] Basic Metabolic Profile (BMP )on 07-13-2024 BUN/CRE 8.5 RATIO Low 10-20 [facility] Comment on above: Performed By: #### L 101.9900, L501.6710, L500.2500, L100.0100 ####[facility] [address] [place], [address] CA,Total 8.9 mg/dL Normal 8.5-10.1 [facility] Comment on above: Performed By: #### L 101.9900, L501.6710, L500.2500, L100.0100 ####[facility] [address] [place], [address] Chloride [Moles/Vol] 93 mmol/L Low 98-107 [facility] Comment on above: Performed By: #### L 101.9900, L501.6710, L500.2500, L100.0100 ####[facility] [address] [place], [address] CO2 [Moles/Vol] 32.0 mmol/L Normal 21.0-32.0 [facility] Comment on above: Performed By: #### L 101.9900, L501.6710, L500.2500, L100.0100 ####[facility] [address] [place], [address] Creatinine [Mass/Vol] 4.35 mg/dL High 0.70-1.30 [facility] Comment on above: Result Comment: The validity of the calculated GFR GFRAA in patients over70 years has not been determined. Clinical correlation isessential. Performed By: #### L 101.9900, L501.6710, L500.2500, L100.0100 ####[facility] [address] [place], [address] ECRCL 13.09 ml/min Normal [facility] Comment on above: Performed By: #### L 101.9900, L501.6710, L500.2500, L100.0100 ####[facility] [address] [place], [address] EST GFR - AA 17 mL/min Low >60 [facility] Comment on above: Result Comment: Afri can Senegalese GFR Calc Performed By: #### L 101.9900, L501.6710, L500.2500, L100.0100 ####[facility] [address] [place], [address] GAP 8 Normal 5-15 [facility] Comment on above: Performed By: #### L 101.9900, L501.6710, L500.2500, L100.0100 ####[facility] [address] [place], [address] GFR/1.73 sq M.predicted among non-blacks MDRD (S/P/Bld) [Vol rate/Area] 14 mL/min/{1.73_m2} Low >60 [facility] Comment on above: Result Comment: Non- GFR Calc Performed By: #### L 101.9900, L501.6710, L500.2500, L100.0100 ####[facility] [address] [place], [address] Glucose [Mass/Vol] 132 mg/dL High 74-106 [facility] Comment on above: Result Comment: Fast ing Glucose result greater than or equal to 126 mg/dLsuggests DIABETES MELLITUS per A.D.A. criteria. Performed By: #### L 101.9900, L501.6710, L500.2500, L100.0100 ####[facility] [address] [place], [address] Potassium [Moles/Vol] 3.7 mmol/L Normal 3.5-5.1 [facility] Comment on above: Result Comment: Slig ht Hemolysis, Result may be falsely increased. Performed By: #### L 101.9900, L501.6710, L500.2500, L100.0100 ####[facility] [address] [place], [address] Sodium [Moles/Vol] 133 mmol/L Low 136-145 [facility] Comment on above: Performed By: #### L 101.9900, L501.6710, L500.2500, L100.0100 ####[facility] [address] [place], [address] Urea nitrogen [Mass/Vol] 37 mg/dL High 7-18 [facility] Comment on above: Performed By: #### L 101.9900, L501.6710, L500.2500, L100.0100 ####[facility] [address] [place], [address] Bedside Glucoseon 07-13-2024 FINGERSTICK GLU 231 mg/dL High 74-106 [facility] Comment on above: Result Comment: FANG VAZQUEZ OF PATIENT CARE PER NURSING PROTOCOL Performed By: #### L 501.080 ####[facility] [address] [place], [address] Blood cultureOrdered By: Noelle Humphreys on 07-13-2024 Bacteria identified Cx Nom (Bld) Meth. resistant Staph. aureus Abnormal [facility] Blood manual differential co mment interpretation (narrative result)Ordered By: Chung Humphreys on 07-13-2024 Manual differential comment Jeff (Bld) [Interp] SEE COMMENT [facility] C-reactive protein measureme nt by high sensitivity methodOrdered By: Chung Humphreys on 07-13-2024 C-reactive protein measurement by high sensitivity method 301.00 mg/L High 0.0-3.0 [facility] CRPon 07-13-2024 C-REACTIVE PROT 301.00 mg/L High 0.0-3.0 [facility] Comment on above: Result Comment: C-Re active Protein (CRP) provides useful information for thediagnosis, therapy and monitoring of inflammatory processesand associated diseases. For the evaluation of Relative Riskfor Cardiovascular Disease, a High Sensitivity CRP (HSCRP)should be ordered. Performed By: #### L 101.9900, L501.6710, L500.2500, L100.0100 ####[facility] [address] [place], [address] Chest PA and Lateralon 07-13 Chest PA and Lateral Normal [facility] Emergency Department Summary on 07-13-2024 Emergency Department Summary Normal [facility] Erythrocyte Sed Rateon 07-13 SED RATE 53 mm/hr High 0-20 [facility] Comment on above: Performed By: #### L 101.9900, L501.6710, L500.2500, L100.0100 ####[facility] [address] [place], [address] Erythrocyte morphology asses smentOrdered By: Chung Humphreys on 07-13-2024 RBC morphology finding Nom (Bld) N CHROM NORMAL NORM C&C [facility] Erythrocyte sedimentation ra teOrdered By: Cuhng Humphreys on 07-13-2024 ESR (Bld) [Velocity] 53 mm/h High 0-20 [facility] Foot min 3 Viewson 5 Foot min 3 Views Normal [facility] Gram stainOrdered By: Kevin Humphreys on 07-13-2024 Microscopic observation Gram stain Nom (Unsp spec) [facility] H AND P Exam - Hospitaliston 07-13-2024 H&P Exam - Hospitalist Normal [facility] Hypochromatic red blood cell detectionOrdered By: Chung Humphreys on 07-13-2024 Hypochromia Ql (Bld) RARE [facility] Influenza virus A and B and SARS-CoV-2 (COVID-19) and Respiratory syncytial virus RNAOrdered By: Chung Humphreys on 07-13-2024 SARS-CoV-2 (COVID-19) RNA EZEKIEL+probe Ql (Unsp spec) [facility] M100.678on 07-13-2024 M100.678 SARS-CoV-2 (COVID 19 ) Negative INFLUENZA A Negative INFLUENZA B Negative RSV PCR Negative Normal [facility] Comment on above: Performed By: #### M 100.678 ####[facility] [address] [place], [place], [address] Macrocytes detectionOrdered By: Chung Humphreys on 07-13-2024 Macrocytes Ql (Bld) 1+ [facility] No Panel InformationOrdered By: Chung Humphreys on 07-13-2024 1+ [facility] Organism identificationOrder ed By: Chung Humphreys on 07-13-2024 Microorganism identified Cx Nom (Unsp spec) Meth. resistant Staph. aureus Abnormal [facility] Platelet estimateOrdered By: Chung Humphreys on 07-13-2024 Platelets LM Ql (Bld) ADEQUATE ADEQ [facility] Routine wound cultureOrdered By: Chung Humphreys on 07-13-2024 Microbial culture, routine Meth. resistant Staph. aureus Abnormal [facility] Urinalysis, Completeon 07-13 BACTERIA Normal None Seen [facility] Comment on above: Order Comment: SENT LABEL TO MS3 TO COLLECTCOLLECTOR TO SPECIFY Result Comment: JAYY ENT DISCHARGED Performed By: #### L 400.0001 ####[facility] [address] [facility] [address] BILIRUBIN URINE Normal Negative [facility] Comment on above: Order Comment: SENT LABEL TO MS3 TO COLLECTCOLLECTOR TO SPECIFY Result Comment: AJYY ENT DISCHARGED Performed By: #### L 400.0001 ####[facility] [address] [facility] [address] Clarity (U) Normal Clear [facility] Comment on above: Order Comment: SENT LABEL TO MS3 TO COLLECTCOLLECTOR TO SPECIFY Result Comment: JAYY ENT DISCHARGED Performed By: #### L 400.0001 ####[facility] [address] [place], [address] Color (U) Normal Yellow [facility] Comment on above: Order Comment: SENT LABEL TO MS3 TO COLLECTCOLLECTOR TO SPECIFY Result Comment: JAYY ENT DISCHARGED Performed By: #### L 400.0001 ####[facility] [address] [facility] [address] EPI,SQUAMOUS Normal 0-5 [facility] Comment on above: Order Comment: SENT LABEL TO MS3 TO COLLECTCOLLECTOR TO SPECIFY Result Comment: JAYY ENT DISCHARGED Performed By: #### L 400.0001 ####[facility] [address] [place], [address] GLUCOSE, UR Normal Normal [facility] Comment on above: Order Comment: SENT LABEL TO MS3 TO COLLECTCOLLECTOR TO SPECIFY Result Comment: JAYY ENT DISCHARGED Performed By: #### L 400.0001 ####[facility] [address] [place], [address] KETONE UR Normal Negative [facility] Comment on above: Order Comment: SENT LABEL TO MS3 TO COLLECTCOLLECTOR TO SPECIFY Result Comment: JAYY ENT DISCHARGED Performed By: #### L 400.0001 ####[facility] [address] [place], [address] LEUK ESTERASE Normal Negative [facility] Comment on above: Order Comment: SENT LABEL TO MS3 TO COLLECTCOLLECTOR TO SPECIFY Result Comment: JAYY ENT DISCHARGED Performed By: #### L 400.0001 ####[facility] [address] [place], [address] Mucus Ql (Urine sed) Normal [facility] Comment on above: Order Comment: SENT LABEL TO MS3 TO COLLECTCOLLECTOR TO SPECIFY Result Comment: JAYY ENT DISCHARGED Performed By: #### L 400.0001 ####[facility] [address] [place], [address] Nitrite Ql (U) Normal Negative [facility] Comment on above: Order Comment: SENT LABEL TO MS3 TO COLLECTCOLLECTOR TO SPECIFY Result Comment: JAYY ENT DISCHARGED Performed By: #### L 400.0001 ####[facility] [address] [place], [address] OCCULT BLOOD-UR Normal Negative [facility] Comment on above: Order Comment: SENT LABEL TO MS3 TO COLLECTCOLLECTOR TO SPECIFY Result Comment: JAYY ENT DISCHARGED Performed By: #### L 400.0001 ####[facility] [address] [place], [address] pH UR Normal 5.0 - 8.0 [facility] Comment on above: Order Comment: SENT LABEL TO MS3 TO COLLECTCOLLECTOR TO SPECIFY Result Comment: JAYY ENT DISCHARGED Performed By: #### L 400.0001 ####[facility] [address] [place], [address] PROT DIPSTX Normal Negative [facility] Comment on above: Order Comment: SENT LABEL TO MS3 TO COLLECTCOLLECTOR TO SPECIFY Result Comment: JAYY ENT DISCHARGED Performed By: #### L 400.0001 ####[facility] [address] [place], [address] RBC Normal 0-5 [facility] Comment on above: Order Comment: SENT LABEL TO MS3 TO COLLECTCOLLECTOR TO SPECIFY Result Comment: JAYY ENT DISCHARGED Performed By: #### L 400.0001 ####[facility] [address] [place], [address] SP.GR. DIPSTX Normal 1.002-1.030 [facility] Comment on above: Order Comment: SENT LABEL TO MS3 TO COLLECTCOLLECTOR TO SPECIFY Result Comment: JAYY ENT DISCHARGED Performed By: #### L 400.0001 ####[facility] [address] [place], [address] UR Preservative Normal [facility] Comment on above: Order Comment: SENT LABEL TO MS3 TO COLLECTCOLLECTOR TO SPECIFY Result Comment: JAYY ENT DISCHARGED Performed By: #### L 400.0001 ####[facility] [address] [place], [address] UROBILI Normal Normal [facility] Comment on above: Order Comment: SENT LABEL TO MS3 TO COLLECTCOLLECTOR TO SPECIFY Result Comment: JAYY ENT DISCHARGED Performed By: #### L 400.0001 ####[facility] [address] [place], [address] WBC Normal 0-5 [facility] Comment on above: Order Comment: SENT LABEL TO MS3 TO COLLECTCOLLECTOR TO SPECIFY Result Comment: JAYY ENT DISCHARGED Performed By: #### L 400.0001 ####[facility] [address] [place], [address] CNPTOUTREACHon 07-11-2024 CNPTOUTREACH Normal [facility] Absolute lymphocyte countOrd ered By: Nando Wiggins on 07-09-2024 Lymphocytes Auto (Unsp spec) [#/Vol] 1.88 10*3/uL 0.83-4.51 [facility] Automated lymphocyte count a s percentage of total leukocytesOrdered By: Nando Wiggins on 07-09-2024 Lymphocytes/100 WBC Auto (Unsp spec) 12.0 % Low 19-41 [facility] Basophil percentageOrdered B y: Nando Wiggins on 07-09-2024 Basophils/100 WBC (Bld) 0.2 % 0-1 [facility] Carbon dioxide measurementOr dered By: Nando Wiggins on 07-09-2024 CO2 [Moles/Vol] 29.0 mmol/L 21.0-32.0 [facility] Chloride measurementOrdered By: Nando Wiggins on 07-09-2024 Chloride [Moles/Vol] 89 mmol/L Low 98-107 [facility] Eosinophil percentageOrdered By: Nando Wiggins on 07-09-2024 Eosinophils/100 WBC (Bld) 0.4 % 0-5 [facility] Erythrocyte distribution wid th ratioOrdered By: Nando Wiggins on 07-09-2024 Erythrocyte distribution width (RBC) [Ratio] 16.9 % High 11.6-14.6 [facility] Erythrocyte distribution wid th standard deviationOrdered By: Nando Wiggins on 07-09-2024 Erythrocyte distribution width (RBC) [Ratio] 57.9 fl High 35.1-43.9 [facility] Glomerular filtration rate ( GFR) estimationOrdered By: Nando Wiggins on 07-09-2024 GFR/1.73 sq M.predicted among non-blacks MDRD (S/P/Bld) [Vol rate/Area] 11 mL/min/{1.73_m2} Low >60 [facility] Glucose measurementOrdered B y: Nando Wiggins on 07-09-2024 Glucose [Mass/Vol] 131 mg/dL High 74-106 [facility] Hematocrit Auto (Bld) [Volum e fraction]Ordered By: Nando Wiggins on 07-09-2024 Hematocrit (Bld) [Volume fraction] 26.0 % Low 40-54 [facility] Hemoglobin measurementOrdere d By: Nando Wiggins on 07-09-2024 Hemoglobin (Bld) [Mass/Vol] 7.7 g/dL Low 13.0-16.5 [facility] Immature granulocytes/100 WB C Auto (Bld)Ordered By: Kathiebiancalilian Meeklakshmidesiree on 07-09-2024 Immature granulocytes/100 WBC (Bld) 0.600 % 0.0-0.9 [facility] MCV (mean corpuscular volume ) determinationOrdered By: Kathiebiancalilian Meeklakshmidesiree on 07-09-2024 MCV (RBC) [Entitic vol] 94.9 fL High 80-94 [facility] Mean corpuscular hemoglobin (MCH) determinationOrdered By: Kathiebiancalilian Meeklakshmidesiree on 07-09-2024 MCH (RBC) [Entitic mass] 28.1 pg 27.0-32.0 [facility] Monocyte percentageOrdered B y: Nando Wiggins on 07-09-2024 Monocytes/100 WBC (Bld) 7.0 % 0-10 [facility] Neutrophil percentageOrdered By: Nando Meeklakshmidesiree on 07-09-2024 Neutrophils/100 WBC (Bld) 79.8 % High 47-70 [facility] Platelet countOrdered By: Kathie fili Meeklakshmidesiree on 07-09-2024 Platelets (Bld) [#/Vol] 258 10*3/uL 150-450 [facility] Potassium measurementOrdered By: Nando Meeklakshmidesiree on 07-09-2024 Potassium [Moles/Vol] 3.6 mmol/L 3.5-5.1 [facility] RBC Auto (Bld) [#/Vol]Ordere d By: Nando Meeklakshmidesiree on 07-09-2024 RBC (Bld) [#/Vol] 2.74 10*6/uL Low 4.6-6.2 [facility] Serum or plasma calcium lilli urement (mass/volume)Ordered By: Nando Wiggins on 07-09-2024 Calcium [Mass/Vol] 9.2 mg/dL 8.5-10.1 [facility] Serum or plasma creatinine m easurement (mass/volume)Ordered By: Nando Wiggins on 07-09-2024 Creatinine [Mass/Vol] 5.11 mg/dL High 0.70-1.30 [facility] Serum or plasma urea nitroge n measurement (mass/volume)Ordered By: Nando Wiggins on 07-09-2024 Urea nitrogen [Mass/Vol] 61 mg/dL High 7-18 [facility] Sodium levelOrdered By: Kathiebianca lilian Rosalie on 07-09-2024 Sodium [Moles/Vol] 129 mmol/L Low 136-145 [facility] White blood cell (WBC) count Ordered By: Nando Wiggins on 07-09-2024 WBC (Bld) [#/Vol] 15.7 10*3/uL High 4.4-11.0 [facility] 12 Lead EKGon 07-07-2024 12 Lead EKG Normal [facility] Absolute lymphocyte countOrd ered By: Alicia Loo on 07-07-2024 Lymphocytes Auto (Unsp spec) [#/Vol] 1.18 10*3/uL 0.83-4.51 [facility] Automated lymphocyte count a s percentage of total leukocytesOrdered By: Alicia Loo on 07-07-2024 Lymphocytes/100 WBC Auto (Unsp spec) 13.1 % Low 19-41 [facility] Basic Metabolic Profile (BMP )on 07-07-2024 BUN/CRE 11.0 RATIO Normal 10-20 [facility] Comment on above: Order Comment: 'TROP ' Serial specimen #1, #2 or #3: 1 Performed By: #### L 500.2500, L100.0100, L501.4020 ####[facility] [address] [place], [address] CA,Total 8.5 mg/dL Normal 8.5-10.1 [facility] Comment on above: Order Comment: 'TROP ' Serial specimen #1, #2 or #3: 1 Performed By: #### L 500.2500, L100.0100, L501.4020 ####[facility] [address] [place], [address] Chloride [Moles/Vol] 91 mmol/L Low 98-107 [facility] Comment on above: Order Comment: 'TROP ' Serial specimen #1, #2 or #3: 1 Performed By: #### L 500.2500, L100.0100, L501.4020 ####[facility] [address] [place], [address] CO2 [Moles/Vol] 33.0 mmol/L High 21.0-32.0 [facility] Comment on above: Order Comment: 'TROP ' Serial specimen #1, #2 or #3: 1 Performed By: #### L 500.2500, L100.0100, L501.4020 ####[facility] [address] [place], [address] Creatinine [Mass/Vol] 3.01 mg/dL High 0.70-1.30 [facility] Comment on above: Order Comment: 'TROP ' Serial specimen #1, #2 or #3: 1 Result Comment: The validity of the calculated GFR GFRAA in patients over70 years has not been determined. Clinical correlation isessential. Performed By: #### L 500.2500, L100.0100, L501.4020 ####[facility] [address] [place], [address] ECRCL 19.28 ml/min Normal [facility] Comment on above: Order Comment: 'TROP ' Serial specimen #1, #2 or #3: 1 Performed By: #### L 500.2500, L100.0100, L501.4020 ####[facility] [address] [place], [address] EST GFR - AA 26 mL/min Low >60 [facility] Comment on above: Order Comment: 'TROP ' Serial specimen #1, #2 or #3: 1 Result Comment: Afri can Senegalese GFR Calc Performed By: #### L 500.2500, L100.0100, L501.4020 ####[facility] [address] [place], [address] GAP 8 Normal 5-15 [facility] Comment on above: Order Comment: 'TROP ' Serial specimen #1, #2 or #3: 1 Performed By: #### L 500.2500, L100.0100, L501.4020 ####[facility] [address] [place], [address] GFR/1.73 sq M.predicted among non-blacks MDRD (S/P/Bld) [Vol rate/Area] 21 mL/min/{1.73_m2} Low >60 [facility] Comment on above: Order Comment: 'TROP ' Serial specimen #1, #2 or #3: 1 Result Comment: Non- GFR Calc Performed By: #### L 500.2500, L100.0100, L501.4020 ####[facility] [address] [place], [address] Glucose [Mass/Vol] 157 mg/dL High 74-106 [facility] Comment on above: Order Comment: 'TROP ' Serial specimen #1, #2 or #3: 1 Result Comment: Fast ing Glucose result greater than or equal to 126 mg/dLsuggests DIABETES MELLITUS per A.D.A. criteria. Performed By: #### L 500.2500, L100.0100, L501.4020 ####[facility] [address] [place], [address] Potassium [Moles/Vol] 3.4 mmol/L Low 3.5-5.1 [facility] Comment on above: Order Comment: 'TROP ' Serial specimen #1, #2 or #3: 1 Performed By: #### L 500.2500, L100.0100, L501.4020 ####[facility] [address] [place], [address] Sodium [Moles/Vol] 132 mmol/L Low 136-145 [facility] Comment on above: Order Comment: 'TROP ' Serial specimen #1, #2 or #3: 1 Performed By: #### L 500.2500, L100.0100, L501.4020 ####[facility] [address] [place], [address] Urea nitrogen [Mass/Vol] 33 mg/dL High 7-18 [facility] Comment on above: Order Comment: 'TROP ' Serial specimen #1, #2 or #3: 1 Performed By: #### L 500.2500, L100.0100, L501.4020 ####[facility] [address] [place], [address] Basophil percentageOrdered B y: Remus Ungur on 07-07-2024 Basophils/100 WBC (Bld) 0.3 % 0-1 [facility] Bilirubin Test strip Ql (U)O rdered By: Remus Ungur on 07-07-2024 Bilirubin Ql (U) 1 mg/dL High Negative [facility] Brain/Head without Contrasto n 07-07-2024 Brain/Head without Contrast Normal [facility] CBC W/Diff, Automatedon 06-23 Absolute Lymph 1.18 X10 3/uL Normal 0.83-4.51 [facility] Comment on above: Performed By: #### L 500.2500, L100.0100, L501.4020 ####[facility] [address] [place], [address] Absolute Neut 6.7 X10 3/uL Normal 2.0-7.7 [facility] Comment on above: Performed By: #### L 500.2500, L100.0100, L501.4020 ####[facility] [address] [place], [address] Basophils/100 WBC (Bld) 0.3 % Normal 0-1 [facility] Comment on above: Performed By: #### L 500.2500, L100.0100, L501.4020 ####[facility] [address] [place], [address] Eosinophils/100 WBC (Bld) 0.1 % Normal 0-5 [facility] Comment on above: Performed By: #### L 500.2500, L100.0100, L501.4020 ####[facility] [address] [place], [address] Erythrocyte distribution width (RBC) [Ratio] 16.6 % High 11.6-14.6 [facility] Comment on above: Performed By: #### L 500.2500, L100.0100, L501.4020 ####[facility] [address] [place], [address] Hematocrit (Bld) [Volume fraction] 27.0 % Low 40-54 [facility] Comment on above: Performed By: #### L 500.2500, L100.0100, L501.4020 ####[facility] [address] [place], [address] Hemoglobin (Bld) [Mass/Vol] 8.1 g/dL Low 13.0-16.5 [facility] Comment on above: Performed By: #### L 500.2500, L100.0100, L501.4020 ####[facility] [address] [place], [address] IG% 0.300 Normal 0.0-0.9 [facility] Comment on above: Result Comment: IG% - Immature Granulocytes (promyelocytes, myelocytes andmetamyelocytes) > 1% indicates that a LEFT SHIFT is Present. Performed By: #### L 500.2500, L100.0100, L501.4020 ####[facility] [address] [place], [address] Lymphocytes/100 WBC (Bld) 13.1 % Low 19-41 [facility] Comment on above: Performed By: #### L 500.2500, L100.0100, L501.4020 ####[facility] [address] [place], [address] MCH (RBC) [Entitic mass] 28.4 pg Normal 27.0-32.0 [facility] Comment on above: Performed By: #### L 500.2500, L100.0100, L501.4020 ####[facility] [address] [place], [address] MCHC (RBC) [Mass/Vol] 30.0 g/dL Low 32-36 [facility] Comment on above: Performed By: #### L 500.2500, L100.0100, L501.4020 ####[facility] [address] [place], [address] MCV (RBC) [Entitic vol] 94.7 fL High 80-94 [facility] Comment on above: Performed By: #### L 500.2500, L100.0100, L501.4020 ####[facility] [address] [place], [address] Monocytes/100 WBC (Bld) 11.4 % High 0-10 [facility] Comment on above: Performed By: #### L 500.2500, L100.0100, L501.4020 ####[facility] [address] [place], [address] Neutrophils/100 WBC (Bld) 74.8 % High 47-70 [facility] Comment on above: Performed By: #### L 500.2500, L100.0100, L501.4020 ####[facility] [address] [place], [address] Nucleated RBC (Bld) [#/Vol] 0 10*3/uL Normal 0-5 [facility] Comment on above: Performed By: #### L 500.2500, L100.0100, L501.4020 ####[facility] [address] [place], [address] Platelet mean volume (Bld) [Entitic vol] 10.7 fL Normal 6.2-12.0 [facility] Comment on above: Performed By: #### L 500.2500, L100.0100, L501.4020 ####[facility] [address] [place], [address] Platelets (Bld) [#/Vol] 211 10*3/uL Normal 150-450 [facility] Comment on above: Performed By: #### L 500.2500, L100.0100, L501.4020 ####[facility] [address] [place], [address] RBC (Bld) [#/Vol] 2.85 10*6/uL Low 4.6-6.2 [facility] Comment on above: Performed By: #### L 500.2500, L100.0100, L501.4020 ####[facility] [address] [place], [address] RDW SD 56.3 fl High 35.1-43.9 [facility] Comment on above: Performed By: #### L 500.2500, L100.0100, L501.4020 ####[facility] [address] [place], [address] WBC (Bld) [#/Vol] 9.0 10*3/uL Normal 4.4-11.0 [facility] Comment on above: Performed By: #### L 500.2500, L100.0100, L501.4020 ####[facility] [address], [address] Carbon dioxide measurementOr dered By: Alicia Loo on 07-07-2024 CO2 [Moles/Vol] 33.0 mmol/L High 21.0-32.0 [facility] Chest 1 View (Portable)on Chest 1 View (Portable) Normal [facility] Chloride measurementOrdered By: Alicia Loo on 07-07-2024 Chloride [Moles/Vol] 91 mmol/L Low 98-107 [facility] Emergency Department Summary on 07-07-2024 Emergency Department Summary Normal [facility] Eosinophil percentageOrdered By: [facility] on 07-07-20[facility] Eosinophils/100 WBC (Bld) 0.1 % 0-5 [facility] Erythrocyte distribution wid th ratioOrdered By: Alicia Loo on 07-07-2024 Erythrocyte distribution width (RBC) [Ratio] 16.6 % High 11.6-14.6 [facility] Erythrocyte distribution wid th standard deviationOrdered By: Alicia Loo on 07-07-2024 Erythrocyte distribution width (RBC) [Ratio] 56.3 fl High 35.1-43.9 [facility] Glomerular filtration rate ( GFR) estimationOrdered By: Alicia Loo on 07-07-2024 GFR/1.73 sq M.predicted among non-blacks MDRD (S/P/Bld) [Vol rate/Area] 21 mL/min/{1.73_m2} Low >60 [facility] Glucose measurementOrdered B y: Alicia Loo on 07-07-2024 Glucose [Mass/Vol] 157 mg/dL High 74-106 [facility] Hematocrit Auto (Bld) [Volum e fraction]Ordered By: Alicia Loo on 07-07-2024 Hematocrit (Bld) [Volume fraction] 27.0 % Low 40-54 [facility] Hemoglobin measurementOrdere d By: Alicia Loo on 07-07-2024 Hemoglobin (Bld) [Mass/Vol] 8.1 g/dL Low 13.0-16.5 [facility] Immature granulocytes/100 WB C Auto (Bld)Ordered By: Alicia Loo on 07-07-2024 Immature granulocytes/100 WBC (Bld) 0.300 % 0.0-0.9 [facility] Influenza virus A and B and SARS-CoV-2 (COVID-19) and Respiratory syncytial virus RNAOrdered By: Alicia Loo on 07-07-2024 SARS-CoV-2 (COVID-19) RNA EZEKIEL+probe Ql (Unsp spec) [facility] Ketones Test strip Ql (U)Ord ered By: Alicia Loo on 07-07-2024 Ketones Ql (U) 5 mg/dl High Negative [facility] L501.4020on 07-07-2024 TROPONIN-I HS 62 pg/mL Normal 3.0-78.0 [facility] Comment on above: Order Comment: 'TROP ' Serial specimen #1, #2 or #3: 1 Result Comment: Plea se Note: New Test Units and Gender Specific Reference Ranges. For more information see Policy Stat Procedure [place] High Sensitivity Troponin (TNIH) and attachments. Performed By: #### L 500.2500, L100.0100, L501.4020 ####[facility] [address] [place], [address] M100.678on 07-07-2024 M100.678 Pending SARS-CoV-2 (COVID 19) Negative INFLUENZA A Negative INFLUENZA B Negative RSV PCR Negative Normal [facility] Comment on above: Performed By: #### M 100.678 ####[facility] [address] [place], [address] MCV (mean corpuscular volume ) determinationOrdered By: Alicia Loo on 07-07-2024 MCV (RBC) [Entitic vol] 94.7 fL High 80-94 [facility] Mean corpuscular hemoglobin (MCH) determinationOrdered By: Alicia Loo on 07-07-2024 MCH (RBC) [Entitic mass] 28.4 pg 27.0-32.0 [facility] Monocyte percentageOrdered B y: Alicia Loo on 07-07-2024 Monocytes/100 WBC (Bld) 11.4 % High 0-10 [facility] Mucus LM Ql (Urine sed)Order ed By: Alicia Loo on 07-07-2024 Mucus Ql (Urine sed) 0 SEEN /hpf [facility] Neutrophil percentageOrdered By: Alicia Loo on 07-07-2024 Neutrophils/100 WBC (Bld) 74.8 % High 47-70 [facility] Nitrite Test strip Ql (U)Ord ered By: Alicia Loo on 07-07-2024 Nitrite Ql (U) Negative Negative [facility] Platelet countOrdered By: Sowmya Loo on 07-07-2024 Platelets (Bld) [#/Vol] 211 10*3/uL 150-450 [facility] Potassium measurementOrdered By: Alicia Loo on 07-07-2024 Potassium [Moles/Vol] 3.4 mmol/L Low 3.5-5.1 [facility] Protein Test strip Ql (U)Ord ered By: Alicia Loo on 07-07-2024 Protein Ql (U) 100 mg/dl High Negative [facility] RBC Auto (Bld) [#/Vol]Ordere d By: Alicia Loo on 07-07-2024 RBC (Bld) [#/Vol] 2.85 10*6/uL Low 4.6-6.2 [facility] Serum or plasma calcium lilli urement (mass/volume)Ordered By: Alicia Loo on 07-07-2024 Calcium [Mass/Vol] 8.5 mg/dL 8.5-10.1 [facility] Serum or plasma creatinine m easurement (mass/volume)Ordered By: Alicia Loo on 07-07-2024 Creatinine [Mass/Vol] 3.01 mg/dL High 0.70-1.30 [facility] Serum or plasma urea nitroge n measurement (mass/volume)Ordered By: Alicia Loo on 07-07-2024 Urea nitrogen [Mass/Vol] 33 mg/dL High 7-18 [facility] Sodium levelOrdered By: Michael Loo on 07-07-2024 Sodium [Moles/Vol] 132 mmol/L Low 136-145 [facility] Squamous epithelial cells de tection in urine sediment by light microscopyOrdered By: Alicia Loo on 07-07-2024 Epithelial cells.squamous LM Ql (Urine sed) 0 SEEN /hpf 0-5 [facility] Troponin IOrdered By: Alicia Loo on 07-07-2024 Troponin I 62 pg/mL 3.0-78.0 [facility] Urinalysis, Completeon 07-07 RBC 0 SEEN Normal 0-5 [facility] Comment on above: Order Comment: COLOR OF URINE MAY AFFECT DIPSTICK RESULTS.CLEAN CATCH Performed By: #### L 400.0001 ####[facility] [address] [place], [address] WBC 0-5 SEEN Normal 0-5 [facility] Comment on above: Order Comment: COLOR OF URINE MAY AFFECT DIPSTICK RESULTS.CLEAN CATCH Performed By: #### L 400.0001 ####[facility] [address] [place], [address] BACTERIA 0 SEEN Normal None Seen [facility] Comment on above: Order Comment: COLOR OF URINE MAY AFFECT DIPSTICK RESULTS.CLEAN CATCH Performed By: #### L 400.0001 ####[facility] [address] [place], [address] EPI,SQUAMOUS 0 SEEN Normal 0-5 [facility] Comment on above: Order Comment: COLOR OF URINE MAY AFFECT DIPSTICK RESULTS.CLEAN CATCH Performed By: #### L 400.0001 ####[facility] [address] [place], [address] Mucus Ql (Urine sed) 0 SEEN Normal [facility] Comment on above: Order Comment: COLOR OF URINE MAY AFFECT DIPSTICK RESULTS.CLEAN CATCH Performed By: #### L 400.0001 ####[facility] [address] [place], [address] Urine clarityOrdered By: Kae Loo on 07-07-2024 Clarity (U) Clear Clear [facility] Urine color determinationOrd ered By: Alicia Loo on 07-07-2024 Color (U) Lilia Yellow [facility] Urine glucose detectionOrder ed By: Alicia Loo on 07-07-2024 Glucose Ql (U) 50 mg/dl High Normal [facility] Urine leukocyte esterase det ection by dipstickOrdered By: Alicia Loo on 07-07-2024 Leukocyte esterase Test strip Ql (U) 25 /ul High Negative [facility] Urine pHOrdered By: Alicia Lam gur on 07-07-2024 pH (U) 5.0 [pH] 5.0 - 8.0 [facility] Urine sediment bacteria coun t by microscopy (number/high power field)Ordered By: Alicia Loo on 07-07-2024 Bacteria LM.HPF (Urine sed) [#/Area] 0 /[HPF] None Seen [facility] Urine specific gravity measu rementOrdered By: [facility] on 07-07-2024 Specific gravity (U) [Rel density] 1.015 1.002-1.030 [facility] Urine urobilinogen measureme ntOrdered By: Alicia Loo on 07-07-2024 Urobilinogen Ql (U) Normal mg/dl Normal [facility] White blood cell (WBC) count Ordered By: Alicia Loo on 07-07-2024 WBC (Bld) [#/Vol] 9.0 10*3/uL 4.4-11.0 [facility] White blood cell countOrdere d By: Alicia Loo on 07-07-2024 White blood cell count 0-5 SEEN /hpf 0-5 [facility] Bedside Glucoseon 07-04-2024 FINGERSTICK GLU 114 mg/dL High 74-106 [facility] Comment on above: Result Comment: FANG GEMENT OF PATIENT CARE PER NURSING PROTOCOL Performed By: #### L 501.080 ####[facility] [address] [place], [address] [facility] deOrdered By: Des Ruelas on 07-04-2024 Glucose [Mass/Vol] 114 mg/dL High 74-106 [facility] Absolute lymphocyte countOrd ered By: Eric Franklin on 07-03-2024 Lymphocytes Auto (Unsp spec) [#/Vol] 1.08 10*3/uL 0.83-4.51 [facility] Automated blood erythrocyte countOrdered By: Eric Franklin on 07-03-2024 RBC (Bld) [#/Vol] 2.75 10*6/uL Low 4.6-6.2 [facility] Comment on above: Performed By: #### L 500.4050, L100.0100 ####[facility] [address] [place], [address] Automated blood hematocrit ( percentage)Ordered By: Eric Franklin on 07-03-2024 Hematocrit (Bld) [Volume fraction] 25.7 % Low 40-54 [facility] Comment on above: Performed By: #### L 500.4050, L100.0100 ####[facility] [address] [place], [address] Automated lymphocyte count a s percentage of total leukocytesOrdered By: Eric Franklin on 07-03-2024 Lymphocytes/100 WBC Auto (Unsp spec) 12.6 % Low 19-41 [facility] Basophil percentageOrdered B y: Eric Franklin on 07-03-2024 Basophils/100 WBC (Bld) 0.2 % Normal 0-1 [facility] Comment on above: Performed By: #### L 500.4050, L100.0100 ####[facility] [address] [place], [address] Bilirubin, totalOrdered By: Eric Franklin on 07-03-2024 Bilirubin [Mass/Vol] 0.60 mg/dL Normal 0.20-1.00 [facility] Comment on above: Result Comment: For patients on eltrombopag therapy, use of Dimension [place] TBIL is not recommended. Performed By: #### L 500.4050, L100.0100 ####[facility] [address] [place], [address] CBC W/Diff, Automatedon 06-23 Absolute Lymph 1.08 X10 3/uL Normal 0.83-4.51 [facility] Comment on above: Performed By: #### L 500.4050, L100.0100 ####[facility] [address] [place], [address] Absolute Neut 6.2 X10 3/uL Normal 2.0-7.7 [facility] Comment on above: Performed By: #### L 500.4050, L100.0100 ####[facility] [address] [place], [address] IG% 0.700 Normal 0.0-0.9 [facility] Comment on above: Result Comment: IG% - Immature Granulocytes (promyelocytes, myelocytes andmetamyelocytes) > 1% indicates that a LEFT SHIFT is Present. Performed By: #### L 500.4050, L100.0100 ####[facility] [address] [place], [address] Lymphocytes/100 WBC (Bld) 12.6 % Low 19-41 [facility] Comment on above: Performed By: #### L 500.4050, L100.0100 ####[facility] [address] [place], [address] MCHC (RBC) [Mass/Vol] 31.5 g/dL Low 32-36 [facility] Comment on above: Performed By: #### L 500.4050, L100.0100 ####[facility] [address] [place], [address] Nucleated RBC (Bld) [#/Vol] 0 10*3/uL Normal 0-5 [facility] Comment on above: Performed By: #### L 500.4050, L100.0100 ####[facility] [address] [place], [address] Platelet mean volume (Bld) [Entitic vol] 11.1 fL Normal 6.2-12.0 [facility] Comment on above: Performed By: #### L 500.4050, L100.0100 ####[facility] [address] [place], [address] RDW SD 56.7 fl High 35.1-43.9 [facility] Comment on above: Performed By: #### L 500.4050, L100.0100 ####[facility] [address] [place], [address] Carbon dioxide measurementOr dered By: Eric Franklin on 07-03-2024 CO2 [Moles/Vol] 27.0 mmol/L Normal 21.0-32.0 [facility] Comment on above: Performed By: #### L 500.4050, L100.0100 ####[facility] [address] [place], [address] Chloride measurementOrdered By: Eric Franklin on 07-03-2024 Chloride [Moles/Vol] 96 mmol/L Low 98-107 [facility] Comment on above: Performed By: #### L 500.4050, L100.0100 ####[facility] [address] [place], [address] Comprehensive Metabolic Prof ilon 07-03-2024 Albumin/Globulin [Mass ratio] 0.5 {ratio} Low 0.9-2.4 [facility] Comment on above: Performed By: #### L 500.4050, L100.0100 ####[facility] [address] [place], [address] ALK P 63 U/L Normal 45-117 [facility] Comment on above: Performed By: #### L 500.4050, L100.0100 ####[facility] [address] [place], [address] AST [Catalytic activity/Vol] 26 U/L Normal 15-37 [facility] Comment on above: Result Comment: Mode rate Hemolysis, Result may be falsely increased. Performed By: #### L 500.4050, L100.0100 ####[facility] [address], [address] BUN/CRE 12.2 RATIO Normal 10-20 [facility] Comment on above: Performed By: #### L 500.4050, L100.0100 ####[facility] [address] [place], [address] CA,Total 8.1 mg/dL Low 8.5-10.1 [facility] Comment on above: Performed By: #### L 500.4050, L100.0100 ####[facility] [address] [place], [address] ECRCL 20.19 ml/min Normal [facility] Comment on above: Performed By: #### L 500.4050, L100.0100 ####[facility] [address] [place], [address] EST GFR - AA 25 mL/min Low >60 [facility] Comment on above: Result Comment: Afri can [place] GFR Calc Performed By: #### L 500.4050, L100.0100 ####[facility] [address] [place], [address] GAP 11 Normal 5-15 [facility] Comment on above: Performed By: #### L 500.4050, L100.0100 ####[facility] [address] [place], [address] T PROT 7.1 g/dL Normal 6.4-8.2 [facility] Comment on above: Performed By: #### L 500.4050, L100.0100 ####[facility] [address] [place], [address] Emergency Department Summary on 07-03-2024 Emergency Department Summary Normal [facility] Eosinophil percentageOrdered By: Eric Franklin on 07-03-2024 Eosinophils/100 WBC (Bld) 0.3 % Normal 0-5 [facility] Comment on above: Performed By: #### L 500.4050, L100.0100 ####[facility] [address] [place], [address] Erythrocyte distribution wid th ratioOrdered By: Eric Franklin on 07-03-2024 Erythrocyte distribution width (RBC) [Ratio] 17.2 % High 11.6-14.6 [facility] Comment on above: Performed By: #### L 500.4050, L100.0100 ####[facility] [address] [place], [address] Erythrocyte distribution wid th standard deviationOrdered By: Eric Franklin on 07-03-2024 Erythrocyte distribution width (RBC) [Ratio] 56.7 fl High 35.1-43.9 [facility] Glomerular filtration rate ( GFR) estimationOrdered By: Ericjorge Franklin on 07-03-2024 GFR/1.73 sq M.predicted among non-blacks MDRD (S/P/Bld) [Vol rate/Area] 21 mL/min/{1.73_m2} Low >60 [facility] Comment on above: Result Comment: Non- GFR Calc Performed By: #### L 500.4050, L100.0100 ####[facility] [address] [place], [place], [address] Glucose measurementOrdered B y: Eric Franklin on 07-03-2024 Glucose [Mass/Vol] 161 mg/dL High 74-106 [facility] Comment on above: Result Comment: Fast ing Glucose result greater than or equal to 126 mg/dLsuggests DIABETES MELLITUS per A.D.A. criteria. Performed By: #### L 500.4050, L100.0100 ####[facility] [address] [place], [address] Hemoglobin measurementOrdere d By: Eric Franklin on 07-03-2024 Hemoglobin (Bld) [Mass/Vol] 8.1 g/dL Low 13.0-16.5 [facility] Comment on above: Performed By: #### L 500.4050, L100.0100 ####[facility] [address] [place], [address] Immature granulocytes/100 WB C Auto (Bld)Ordered By: Eric Franklin on 07-03-2024 Immature granulocytes/100 WBC (Bld) 0.700 % 0.0-0.9 [facility] MCV (mean corpuscular volume ) determinationOrdered By: Eric Franklin on 07-03-2024 MCV (RBC) [Entitic vol] 93.5 fL Normal 80-94 [facility] Comment on above: Performed By: #### L 500.4050, L100.0100 ####[facility] [address] [place], [address] Mean corpuscular hemoglobin (MCH) determinationOrdered By: Eric Franklin on 07-03-2024 MCH (RBC) [Entitic mass] 29.5 pg Normal 27.0-32.0 [facility] Comment on above: Performed By: #### L 500.4050, L100.0100 ####[facility] [address] [place], [address] Monocyte percentageOrdered B y: Eric Franklin on 07-03-2024 Monocytes/100 WBC (Bld) 14.5 % High 0-10 [facility] Comment on above: Performed By: #### L 500.4050, L100.0100 ####[facility] [address] [place], [address] Neutrophil percentageOrdered By: Eric Franklin on 07-03-2024 Neutrophils/100 WBC (Bld) 71.7 % High 47-70 [facility] Comment on above: Performed By: #### L 500.4050, L100.0100 ####[facility] [address] [place], [address] No Panel InformationOrdered By: Eric Franklin on 07-03-2024 26 U/L 15-37 [facility] Platelet countOrdered By: Ug o Franklin on 07-03-2024 Platelets (Bld) [#/Vol] 194 10*3/uL Normal 150-450 [facility] Comment on above: Performed By: #### L 500.4050, L100.0100 ####[facility] [address] [place], [address] Potassium measurementOrdered By: Ericjorge Franklin on 07-03-2024 Potassium [Moles/Vol] 4.2 mmol/L Normal 3.5-5.1 [facility] Comment on above: Result Comment: Mode rate Hemolysis, Result may be falsely increased. Performed By: #### L 500.4050, L100.0100 ####[facility] [address] [place], [address] Serum globulin measurementOr dered By: Ericjorge Franklin on 07-03-2024 Globulin (S) [Mass/Vol] 4.7 g/dL High 2.2-4.2 [facility] Comment on above: Performed By: #### L 500.4050, L100.0100 ####[facility] [address] [place], [address] Serum or plasma alanine hawkins otransferase (ALT) measurementOrdered By: Ericjorge Franklin on 07-03-2024 ALT [Catalytic activity/Vol] 13 U/L Low 16-61 [facility] Comment on above: Performed By: #### L 500.4050, L100.0100 ####[facility] [address] [place], [address] Serum or plasma albumin lilli urement (mass/volume)Ordered By: Ericjorge Lechugao on 07-03-2024 Albumin [Mass/Vol] 2.4 g/dL Low 3.2-5.0 [facility] Comment on above: Performed By: #### L 500.4050, L100.0100 ####[facility] [address] [place], [address] Serum or plasma alkaline penelope sphatase measurementOrdered By: [facility] on 07-03-2024 ALP [Catalytic activity/Vol] 63 U/L 45-117 [facility] Serum or plasma calcium lilli urement (mass/volume)Ordered By: [facility] on 07-03-2024 Calcium [Mass/Vol] 8.1 mg/dL Low 8.5-10.1 [facility] Serum or plasma creatinine m easurement (mass/volume)Ordered By: [facility] on 07-03-2024 Creatinine [Mass/Vol] 3.04 mg/dL High 0.70-1.30 [facility] Comment on above: Result Comment: The validity of the calculated GFR GFRAA in patients over70 years has not been determined. Clinical correlation isessential. Performed By: #### L 500.4050, L100.0100 ####[facility] [address] [place], [address] Serum or plasma urea nitroge n measurement (mass/volume)Ordered By: [facility] on 07-03-2024 Urea nitrogen [Mass/Vol] 37 mg/dL High 7-18 [facility] Comment on above: Performed By: #### L 500.4050, L100.0100 ####[facility] [address] [place], [address] Sodium levelOrdered By: [facility] on 07-03-2024 Sodium [Moles/Vol] 134 mmol/L Low 136-145 [facility] Comment on above: Performed By: #### L 500.4050, L100.0100 ####[facility] [address] [place], [address] Total proteinOrdered By: [facility] on 07-03-2024 Protein [Mass/Vol] 7.1 g/dL 6.4-8.2 [facility] White blood cell (WBC) count Ordered By: [facility] on 07-03-2024 WBC (Bld) [#/Vol] 8.6 10*3/uL Normal 4.4-11.0 [facility] Comment on above: Performed By: #### L 500.4050, L100.0100 ####[facility] [address] [place], [address] 12 Lead EKGon 07-02-2024 12 Lead EKG Normal [facility] Absolute lymphocyte countOrd ered By: Nando Wiggins on 07-02-2024 Lymphocytes Auto (Unsp spec) [#/Vol] 1.88 10*3/uL 0.83-4.51 [facility] Automated lymphocyte count a s percentage of total leukocytesOrdered By: Nando Wiggins on 07-02-2024 Lymphocytes/100 WBC Auto (Unsp spec) 20.3 % 19-41 [facility] Basic Metabolic Profile (BMP )on 07-02-2024 BUN/CRE 18.1 RATIO Normal 10-20 [facility] Comment on above: Performed By: #### L 500.2500 ####[facility] [address] [place], [address] CA,Total 9.1 mg/dL Normal 8.5-10.1 [facility] Comment on above: Performed By: #### L 500.2500 ####[facility] [address] [place], [address] Chloride [Moles/Vol] 98 mmol/L Normal 98-107 [facility] Comment on above: Performed By: #### L 500.2500 ####[facility] [address] [place], [address] CO2 [Moles/Vol] 26.0 mmol/L Normal 21.0-32.0 [facility] Comment on above: Performed By: #### L 500.2500 ####[facility] [address] [place], [address] Creatinine [Mass/Vol] 4.63 mg/dL High 0.70-1.30 [facility] Comment on above: Result Comment: The validity of the calculated GFR GFRAA in patients over70 years has not been determined. Clinical correlation isessential. Performed By: #### L 500.2500 ####[facility] [address] [place], [address] ECRCL 12.30 ml/min Normal [facility] Comment on above: Performed By: #### L 500.2500 ####[facility] [address] [place], [address] EST GFR - AA 16 mL/min Low >60 [facility] Comment on above: Result Comment: Afri can Senegalese GFR Calc Performed By: #### L 500.2500 ####[facility] [address] [place], [address] GAP 9 Normal 5-15 [facility] Comment on above: Performed By: #### L 500.2500 ####[facility] [address] [place], [address] GFR/1.73 sq M.predicted among non-blacks MDRD (S/P/Bld) [Vol rate/Area] 13 mL/min/{1.73_m2} Low >60 [facility] Comment on above: Result Comment: Non- GFR Calc Performed By: #### L 500.2500 ####[facility] [address] [place], [address] Glucose [Mass/Vol] 134 mg/dL High 74-106 [facility] Comment on above: Result Comment: Fast ing Glucose result greater than or equal to 126 mg/dLsuggests DIABETES MELLITUS per A.D.A. criteria. Performed By: #### L 500.2500 ####[facility] [address] [place], [address] Potassium [Moles/Vol] 4.3 mmol/L Normal 3.5-5.1 [facility] Comment on above: Performed By: #### L 500.2500 ####[facility] [address] [place], [address] Sodium [Moles/Vol] 133 mmol/L Low 136-145 [facility] Comment on above: Performed By: #### L 500.2500 ####[facility] [address] [place], [place], [address] Urea nitrogen [Mass/Vol] 84 mg/dL High 7-18 [facility] Comment on above: Performed By: #### L 500.2500 ####[facility] [address] [place], [address] Basophil percentageOrdered B y: Nando Wiggins on 07-02-2024 Basophils/100 WBC (Bld) 0.3 % 0-1 [facility] Bedside Glucoseon 07-02-2024 FINGERSTICK GLU 230 mg/dL High 74-106 [facility] Comment on above: Result Comment: FANG VAZQUEZ OF PATIENT CARE PER NURSING PROTOCOL Performed By: #### L 501.080 ####[facility] [address] [place], [place], [address] Carbon dioxide measurementOr dered By: Fernando Oliveros on 07-02-2024 CO2 [Moles/Vol] 26.0 mmol/L 21.0-32.0 [facility] Carbon dioxide measurementOr dered By: Nando Wiggins on 07-02-2024 CO2 [Moles/Vol] 25.0 mmol/L 21.0-32.0 [facility] Chloride measurementOrdered By: Fernando Oliveros on 07-02-2024 Chloride [Moles/Vol] 98 mmol/L 98-107 [facility] Chloride measurementOrdered By: Nando Wiggins on 07-02-2024 Chloride [Moles/Vol] 96 mmol/L Low 98-107 [facility] Emergency Department Summary on 07-02-2024 Emergency Department Summary Normal [facility] Eosinophil percentageOrdered By: Nando Wiggins on 07-02-2024 Eosinophils/100 WBC (Bld) 3.0 % 0-5 [facility] Erythrocyte distribution wid th ratioOrdered By: Nando Wiggins on 07-02-2024 Erythrocyte distribution width (RBC) [Ratio] 17.2 % High 11.6-14.6 [facility] Erythrocyte distribution wid th standard deviationOrdered By: Nando Wiggins on 07-02-2024 Erythrocyte distribution width (RBC) [Ratio] 58.0 fl High 35.1-43.9 [facility] Glomerular filtration rate ( GFR) estimationOrdered By: Fernando Oliveros on 07-02-2024 GFR/1.73 sq M.predicted among non-blacks MDRD (S/P/Bld) [Vol rate/Area] 13 mL/min/{1.73_m2} Low >60 [facility] Glomerular filtration rate ( GFR) estimationOrdered By: Nando Wiggins on 07-02-2024 GFR/1.73 sq M.predicted among non-blacks MDRD (S/P/Bld) [Vol rate/Area] 8 mL/min/{1.73_m2} Low >60 [facility] Glucose measurementOrdered B y: Fernando Oliveros on 07-02-2024 Glucose [Mass/Vol] 134 mg/dL High 74-106 [facility] Glucose measurementOrdered B y: Nando Wiggins on 07-02-2024 Glucose [Mass/Vol] 134 mg/dL High 74-106 [facility] Glucose measurement at [facility] deOrdered By: Fernando Oliveros on 07-02-2024 Glucose [Mass/Vol] 230 mg/dL High 74-106 [facility] H AND P Exam - Hospitaliston 07-02-2024 H&P Exam - Hospitalist Normal [facility] Hematocrit Auto (Bld) [Volum e fraction]Ordered By: Nando Wiggins on 07-02-2024 Hematocrit (Bld) [Volume fraction] 25.7 % Low 40-54 [facility] Hemoglobin measurementOrdere d By: Nando Wiggins on 07-02-2024 Hemoglobin (Bld) [Mass/Vol] 8.0 g/dL Low 13.0-16.5 [facility] Immature granulocytes/100 WB C Auto (Bld)Ordered By: Nando Wiggins on 07-02-2024 Immature granulocytes/100 WBC (Bld) 0.500 % 0.0-0.9 [facility] MCV (mean corpuscular volume ) determinationOrdered By: Nando Wiggins on 07-02-2024 MCV (RBC) [Entitic vol] 96.3 fL High 80-94 [facility] Mean corpuscular hemoglobin (MCH) determinationOrdered By: Kathiefili Edenlakshmidesiree on 07-02-2024 MCH (RBC) [Entitic mass] 30.0 pg 27.0-32.0 [facility] Monocyte percentageOrdered B y: Nando Meeklakshmidesiree on 07-02-2024 Monocytes/100 WBC (Bld) 11.7 % High 0-10 [facility] Neutrophil percentageOrdered By: Brianwolf Edenlakshmidesiree on 07-02-2024 Neutrophils/100 WBC (Bld) 64.2 % 47-70 [facility] Platelet countOrdered By: Kathie rehanwolf Edenlakshmidesiree on 07-02-2024 Platelets (Bld) [#/Vol] 198 10*3/uL 150-450 [facility] Potassium measurementOrdered By: Fernando Oliveros on 07-02-2024 Potassium [Moles/Vol] 4.3 mmol/L 3.5-5.1 [facility] Potassium measurementOrdered By: Nando Wiggins on 07-02-2024 Potassium [Moles/Vol] 5.9 mmol/L High 3.5-5.1 [facility] RBC Auto (Bld) [#/Vol]Ordere d By: Nando Edenlakshmidesiree on 07-02-2024 RBC (Bld) [#/Vol] 2.67 10*6/uL Low 4.6-6.2 [facility] Serum or plasma calcium lilli urement (mass/volume)Ordered By: Fernando Oliveros on 07-02-2024 Calcium [Mass/Vol] 9.1 mg/dL 8.5-10.1 [facility] Serum or plasma calcium lilli urement (mass/volume)Ordered By: Nando Wiggins on 07-02-2024 Calcium [Mass/Vol] 8.1 mg/dL Low 8.5-10.1 [facility] Serum or plasma creatinine m [...] Urea nitrogen [Mass/Vol] 84 mg/dL High 12-07 [facility] Serum or plasma urea nitroge n measurement (mass/volume)Ordered By: Nando Wiggins on 07-02-2024 Urea nitrogen [Mass/Vol] 126 mg/dL High 12-07 [facility] Sodium levelOrdered By: Fernando Oliveros on 07-02-2024 Sodium [Moles/Vol] 133 mmol/L Low 136-145 [facility] Sodium levelOrdered By: Deb burkdesiree Rosalie on 07-02-2024 Sodium [Moles/Vol] 130 mmol/L Low 136-145 [facility] White blood cell (WBC) count Ordered By: Nando Wiggins on 07-02-2024 WBC (Bld) [#/Vol] 9.3 10*3/uL 4.4-11.0 [facility] Absolute lymphocyte countOrd ered By: Nando Wiggins on 06-25-2024 Lymphocytes Auto (Unsp spec) [#/Vol] 2.51 10*3/uL 0.83-4.51 [facility] Automated lymphocyte count a s percentage of total leukocytesOrdered By: Nando Wiggins on 06-25-2024 Lymphocytes/100 WBC Auto (Unsp spec) 29.7 % 19-41 [facility] Basophil percentageOrdered B y: Nando Wiggins on 06-25-2024 Basophils/100 WBC (Bld) 0.6 % 0-1 [facility] Carbon dioxide measurementOr dered By: Nando Wiggins on 06-25-2024 CO2 [Moles/Vol] 27.0 mmol/L 21.0-32.0 [facility] Chloride measurementOrdered By: Nando Wiggins on 06-25-2024 Chloride [Moles/Vol] 96 mmol/L Low 98-107 [facility] Eosinophil percentageOrdered By: Nando Wiggins on 06-25-2024 Eosinophils/100 WBC (Bld) 3.5 % 0-5 [facility] Erythrocyte distribution wid th ratioOrdered By: Nando Wiggins on 06-25-2024 Erythrocyte distribution width (RBC) [Ratio] 15.1 % High 11.6-14.6 [facility] Erythrocyte distribution wid th standard deviationOrdered By: Nando Wiggins on 06-25-2024 Erythrocyte distribution width (RBC) [Ratio] 52.1 fl High 35.1-43.9 [facility] Glomerular filtration rate ( GFR) estimationOrdered By: Nando Wiggins on 06-25-2024 GFR/1.73 sq M.predicted among non-blacks MDRD (S/P/Bld) [Vol rate/Area] 11 mL/min/{1.73_m2} Low >60 [facility] Glucose measurementOrdered B y: Nando Wiggins on 06-25-2024 Glucose [Mass/Vol] 136 mg/dL High 74-106 [facility] Hematocrit Auto (Bld) [Volum e fraction]Ordered By: Nando Wiggins on 06-25-2024 Hematocrit (Bld) [Volume fraction] 27.3 % Low 40-54 [facility] Hemoglobin measurementOrdere d By: Nando Wiggins on 06-25-2024 Hemoglobin (Bld) [Mass/Vol] 8.0 g/dL Low 13.0-16.5 [facility] Immature granulocytes/100 WB C Auto (Bld)Ordered By: Nando Wiggins on 06-25-2024 Immature granulocytes/100 WBC (Bld) 1.500 % High 0.0-0.9 [facility] MCV (mean corpuscular volume ) determinationOrdered By: Nando Wiggins on 06-25-2024 MCV (RBC) [Entitic vol] 95.5 fL High 80-94 [facility] Mean corpuscular hemoglobin (MCH) determinationOrdered By: Nando Wiggins on 06-25-2024 MCH (RBC) [Entitic mass] 28.0 pg 27.0-32.0 [facility] Monocyte percentageOrdered B y: Nando Wiggins on 06-25-2024 Monocytes/100 WBC (Bld) 8.3 % 0-10 [facility] Neutrophil percentageOrdered By: Nando Wiggins on 06-25-2024 Neutrophils/100 WBC (Bld) 56.4 % 47-70 [facility] Platelet countOrdered By: Kathie Wiggins on 06-25-2024 Platelets (Bld) [#/Vol] 210 10*3/uL 150-450 [facility] Potassium measurementOrdered By: Nando Wiggins on 06-25-2024 Potassium [Moles/Vol] 4.2 mmol/L 3.5-5.1 [facility] RBC Auto (Bld) [#/Vol]Ordere d By: Nando Wiggins on 06-25-2024 RBC (Bld) [#/Vol] 2.86 10*6/uL Low 4.6-6.2 [facility] Serum or plasma calcium lilli urement (mass/volume)Ordered By: Nando Wiggins on 06-25-2024 Calcium [Mass/Vol] 9.0 mg/dL 8.5-10.1 [facility] Serum or plasma creatinine m easurement (mass/volume)Ordered By: Nando Wiggins on 06-25-2024 Creatinine [Mass/Vol] 5.23 mg/dL High 0.70-1.30 [facility] Serum or plasma urea nitroge n measurement (mass/volume)Ordered By: Nando Wiggins on 06-25-2024 Urea nitrogen [Mass/Vol] 72 mg/dL High 7-18 [facility] Sodium levelOrdered By: Deb Wiggins on 06-25-2024 Sodium [Moles/Vol] 134 mmol/L Low 136-145 [facility] White blood cell (WBC) count Ordered By: Nando Wiggins on 06-25-2024 WBC (Bld) [#/Vol] 8.5 10*3/uL 4.4-11.0 [facility] MR/BMS.BVSon 06-20-2024 MR/BMS.BVS Normal [facility] Absolute lymphocyte countOrd ered By: Nando Wiggins on 06-18-2024 Lymphocytes Auto (Unsp spec) [#/Vol] 2.74 10*3/uL 0.83-4.51 [facility] Automated lymphocyte count a s percentage of total leukocytesOrdered By: Nando Wiggins on 06-18-2024 Lymphocytes/100 WBC Auto (Unsp spec) 31.0 % 19-41 [facility] Basophil percentageOrdered B y: Nando Wiggins on 06-18-2024 Basophils/100 WBC (Bld) 0.6 % 0-1 [facility] Carbon dioxide measurementOr dered By: Nando Wiggins on 06-18-2024 CO2 [Moles/Vol] 32.0 mmol/L 21.0-32.0 [facility] Chloride measurementOrdered By: Nando Wiggins on 06-18-2024 Chloride [Moles/Vol] 95 mmol/L Low 98-107 [facility] Eosinophil percentageOrdered By: Nando Wiggins on 06-18-2024 Eosinophils/100 WBC (Bld) 3.1 % 0-5 [facility] Erythrocyte distribution wid th ratioOrdered By: Nando Wiggins on 06-18-2024 Erythrocyte distribution width (RBC) [Ratio] 14.6 % 11.6-14.6 [facility] Erythrocyte distribution wid th standard deviationOrdered By: Nando Wiggins on 06-18-2024 Erythrocyte distribution width (RBC) [Ratio] 50.6 fl High 35.1-43.9 [facility] Glomerular filtration rate ( GFR) estimationOrdered By: Nando Wiggins on 06-18-2024 GFR/1.73 sq M.predicted among non-blacks MDRD (S/P/Bld) [Vol rate/Area] 12 mL/min/{1.73_m2} Low >60 [facility] Glucose measurementOrdered B y: Nando Wiggins on 06-18-2024 Glucose [Mass/Vol] 81 mg/dL 74-106 [facility] Hematocrit Auto (Bld) [Volum e fraction]Ordered By: Kathiebiancalilian Meeklakshmidesiree on 06-18-2024 Hematocrit (Bld) [Volume fraction] 28.6 % Low 40-54 [facility] Hemoglobin measurementOrdere d By: Nando Wiggins on 06-18-2024 Hemoglobin (Bld) [Mass/Vol] 8.4 g/dL Low 13.0-16.5 [facility] Immature granulocytes/100 WB C Auto (Bld)Ordered By: Deblilian Meeklakshmidesiree on 06-18-2024 Immature granulocytes/100 WBC (Bld) 0.300 % 0.0-0.9 [facility] MCV (mean corpuscular volume ) determinationOrdered By: Debsrinathwolf Edenlakshmidesiree on 06-18-2024 MCV (RBC) [Entitic vol] 95.0 fL High 80-94 [facility] Mean corpuscular hemoglobin (MCH) determinationOrdered By: Kathiefili Edenlakshmidesiree on 06-18-2024 MCH (RBC) [Entitic mass] 27.9 pg 27.0-32.0 [facility] Monocyte percentageOrdered B y: Nando Meekcheko on 06-18-2024 Monocytes/100 WBC (Bld) 8.3 % 0-10 [facility] Neutrophil percentageOrdered By: Kathiebiancasrinathwolf Edenlakshmidesiree on 06-18-2024 Neutrophils/100 WBC (Bld) 56.7 % 47-70 [facility] Platelet countOrdered By: Kathie fili Meeklakshmidesiree on 06-18-2024 Platelets (Bld) [#/Vol] 301 10*3/uL 150-450 [facility] Potassium measurementOrdered By: Kathiebiancasrinathwolf Edenlakshmidesiree on 06-18-2024 Potassium [Moles/Vol] 4.7 mmol/L 3.5-5.1 [facility] RBC Auto (Bld) [#/Vol]Ordere d By: Kathiebiancalilian Meeklakshmidesiree on 06-18-2024 RBC (Bld) [#/Vol] 3.01 10*6/uL Low 4.6-6.2 [facility] Serum or plasma calcium lilli urement (mass/volume)Ordered By: Nando Wiggins on 06-18-2024 Calcium [Mass/Vol] 9.5 mg/dL 8.5-10.1 [facility] Serum or plasma creatinine m easurement (mass/volume)Ordered By: Nando Wiggins on 06-18-2024 Creatinine [Mass/Vol] 5.06 mg/dL High 0.70-1.30 [facility] Serum or plasma urea nitroge n measurement (mass/volume)Ordered By: Nando Wiggins on 06-18-2024 Urea nitrogen [Mass/Vol] 69 mg/dL High 7-18 [facility] Sodium levelOrdered By: Deb rosetirsodesiree Wiggins on 06-18-2024 Sodium [Moles/Vol] 134 mmol/L Low 136-145 [facility] White blood cell (WBC) count Ordered By: Nando Wiggins on 06-18-2024 WBC (Bld) [#/Vol] 8.8 10*3/uL 4.4-11.0 [facility] Absolute lymphocyte countOrd ered By: Nando Wiggins on 06-11-2024 Lymphocytes Auto (Unsp spec) [#/Vol] 2.00 10*3/uL 0.83-4.51 [facility] Automated lymphocyte count a s percentage of total leukocytesOrdered By: Nando Wiggins on 06-11-2024 Lymphocytes/100 WBC Auto (Unsp spec) 25.4 % 19-41 [facility] Basophil percentageOrdered B y: Nando Wiggins on 06-11-2024 Basophils/100 WBC (Bld) 0.6 % 0-1 [facility] CNPTOUTREACHon 06-11-2024 CNPTOUTREACH Normal [facility] Carbon dioxide measurementOr dered By: Nando Wiggins on 06-11-2024 CO2 [Moles/Vol] 30.0 mmol/L 21.0-32.0 [facility] Chloride measurementOrdered By: Nando Wiggins on 06-11-2024 Chloride [Moles/Vol] 94 mmol/L Low 98-107 [facility] Culture, Anaerobic Any Sourc reed 06-11-2024 CUAN Right Forefoot No growth in 5 days. Normal [facility] Comment on above: Performed By: #### M 100.3000, M600.2200, M300.2000, M100.4001, M300.3000, M100.2000, M600.2000 ####[facility] [address] [place], [address] Eosinophil percentageOrdered By: [facility] on 06-11-2024 Eosinophils/100 WBC (Bld) 2.7 % 0-5 [facility] Erythrocyte distribution wid th ratioOrdered By: [facility] on 06-11-2024 Erythrocyte distribution width (RBC) [Ratio] 14.6 % 11.6-14.6 [facility] Erythrocyte distribution wid th standard deviationOrdered By: biancaminocquawolf Wiggins on 06-11-2024 Erythrocyte distribution width (RBC) [Ratio] 50.4 fl High 35.1-43.9 [facility] Glomerular filtration rate ( GFR) estimationOrdered By: Nando Wiggins on 06-11-2024 GFR/1.73 sq M.predicted among non-blacks MDRD (S/P/Bld) [Vol rate/Area] 10 mL/min/{1.73_m2} Low >60 [facility] Glucose measurementOrdered B y: Nando Wiggins on 06-11-2024 Glucose [Mass/Vol] 222 mg/dL High 74-106 [facility] Hematocrit Auto (Bld) [Volum e fraction]Ordered By: Nando Wiggins on 06-11-2024 Hematocrit (Bld) [Volume fraction] 27.0 % Low 40-54 [facility] Hemoglobin measurementOrdere d By: Nando Wiggins on 06-11-2024 Hemoglobin (Bld) [Mass/Vol] 8.1 g/dL Low 13.0-16.5 [facility] Immature granulocytes/100 WB C Auto (Bld)Ordered By: Nando Wiggins on 06-11-2024 Immature granulocytes/100 WBC (Bld) 0.500 % 0.0-0.9 [facility] MCV (mean corpuscular volume ) determinationOrdered By: Nando Wiggins on 06-11-2024 MCV (RBC) [Entitic vol] 94.7 fL High 80-94 [facility] Mean corpuscular hemoglobin (MCH) determinationOrdered By: Nando Wiggins on 06-11-2024 MCH (RBC) [Entitic mass] 28.4 pg 27.0-32.0 [facility] Monocyte percentageOrdered B y: Nando Wiggins on 06-11-2024 Monocytes/100 WBC (Bld) 9.7 % 0-10 [facility] Neutrophil percentageOrdered By: Nando Wiggins on 06-11-2024 Neutrophils/100 WBC (Bld) 61.1 % 47-70 [facility] Platelet countOrdered By: Kathie Wiggins on 06-11-2024 Platelets (Bld) [#/Vol] 295 10*3/uL 150-450 [facility] Potassium measurementOrdered By: Nando Wiggins on 06-11-2024 Potassium [Moles/Vol] 5.1 mmol/L 3.5-5.1 [facility] RBC Auto (Bld) [#/Vol]Ordere d By: Nando Wiggins on 06-11-2024 RBC (Bld) [#/Vol] 2.85 10*6/uL Low 4.6-6.2 [facility] Serum or plasma calcium lilli urement (mass/volume)Ordered By: Nando Wiggins on 06-11-2024 Calcium [Mass/Vol] 9.1 mg/dL 8.5-10.1 [facility] Serum or plasma creatinine m easurement (mass/volume)Ordered By: Nando Wiggins on 06-11-2024 Creatinine [Mass/Vol] 5.75 mg/dL High 0.70-1.30 [facility] Serum or plasma urea nitroge n measurement (mass/volume)Ordered By: Nando Wiggins on 06-11-2024 Urea nitrogen [Mass/Vol] 69 mg/dL High 7-18 [facility] Sodium levelOrdered By: Deb Wiggins on 06-11-2024 Sodium [Moles/Vol] 131 mmol/L Low 136-145 [facility] White blood cell (WBC) count Ordered By: Nando Wiggins on 06-11-2024 WBC (Bld) [#/Vol] 7.9 10*3/uL 4.4-11.0 [facility] Bilirubin directOrdered By: Nando Wiggins on 06-08-2024 Bilirubin.direct [Mass/Vol] 0.14 mg/dL 0.00-0.30 [facility] Bilirubin, totalOrdered By: Nando Wiggins on 06-08-2024 Bilirubin [Mass/Vol] 0.40 mg/dL 0.20-1.00 [facility] Hemoglobin A1c percentageOrd ered By: Nando Wiggins on 06-08-2024 HbA1c (Bld) [Mass fraction] 7.7 % High 3.8-5.6 [facility] No Panel InformationOrdered By: Nando Wiggins on 06-08-2024 14 U/L Low 15-37 [facility] Serum globulin measurementOr dered By: Nando Wiggins on 06-08-2024 Globulin (S) [Mass/Vol] 4.4 g/dL High 2.2-4.2 [facility] Serum or plasma alanine hawkins otransferase (ALT) measurementOrdered By: Nando Wiggins on 06-08-2024 ALT [Catalytic activity/Vol] 7 U/L Low 16-61 [facility] Serum or plasma albumin lilli urement (mass/volume)Ordered By: Nando Wiggins on 06-08-2024 Albumin [Mass/Vol] 2.2 g/dL Low 3.2-5.0 [facility] Serum or plasma alkaline penelope sphatase measurementOrdered By: Nando Wiggins on 06-08-2024 ALP [Catalytic activity/Vol] 56 U/L 45-117 [facility] Total proteinOrdered By: Sinan Wiggins on 06-08-2024 Protein [Mass/Vol] 6.6 g/dL 6.4-8.2 [facility] Wound Cultureon 06-08-2024 WC Right Forefoot No growth aerobically. Normal [facility] Comment on above: Performed By: #### M 100.3000, M600.2200, M300.2000, M100.4001, M300.3000, M100.2000, M600.2000 ####[facility] [address] [place], [address] Acid fast bacillus (AFB) cul tureOrdered By: Des Ruelas on 06-06-2024 Mycobacterium sp identified Org specific cx Nom (Unsp spec) [facility] Anaerobic cultureOrdered By: Des Ruelas on 06-06-2024 Bacteria identified Anaer cx Nom (Unsp spec) No growth in 5 days. [facility] Bedside Glucoseon 06-06-2024 FINGERSTICK GLU 102 mg/dL Normal 74-106 [facility] Comment on above: Result Comment: FANG VAZQUEZ OF PATIENT CARE PER NURSING PROTOCOL Performed By: #### L 501.080 ####[facility] [address] [place], [place], [address] Bilirubin directOrdered By: Nando Wiggins on 06-06-2024 Bilirubin.direct [Mass/Vol] 0.12 mg/dL 0.00-0.30 [facility] Bilirubin, totalOrdered By: Nando Wiggins on 06-06-2024 Bilirubin [Mass/Vol] 0.30 mg/dL 0.20-1.00 [facility] Decalcification bone/plaqueo n 06-06-2024 Decalcification bone/plaque Normal [facility] Comment on above: Performed By: #### P DEC ####[facility] [address] [place], [place], [address] Foot min 3 Viewson 5 Foot min 3 Views Normal [facility] Fungus cultureOrdered By: Kana Ruelas on 06-06-2024 Fungus identified Cx Nom (Unsp spec) [facility] Fungus stainOrdered By: Juve Ruelas on 06-06-2024 Fungus identified Fungus stain Nom (Unsp spec) [facility] deOrdered By: Des Ruelas on 06-06-2024 Glucose [Mass/Vol] 102 mg/dL 74-106 [facility] Gram Stainon 06-06-2024 GS Right Forefoot Gram Stain 4+ Red Blood Cells 1+ White Blood Cells No organisms seen Normal [facility] Comment on above: Performed By: #### M 100.3000, M600.2200, M300.2000, M100.4001, M300.3000, M100.2000, M600.2000 ####[facility] [address] [place], [address] Gram stainOrdered By: Des Ruelas on 06-06-2024 Microscopic observation Gram stain Nom (Unsp spec) [facility] Hemoglobin A1c percentageOrd ered By: Nando Wiggins on 06-06-2024 HbA1c (Bld) [Mass fraction] 8.0 % High 3.8-5.6 [facility] MR/POSTOP.ANEon 06-06-2024 MR/POSTOP.ANE Normal [facility] MR/BNYXOPXI3he 06-06-2024 MR/POSTOPAN2 Normal [facility] No Panel InformationOrdered By: Nando Wiggins on 06-06-2024 13 U/L Low 15-37 [facility] Operative Reporton Operative Report Normal [facility] Serum globulin measurementOr dered By: Nando Wiggins on 06-06-2024 Globulin (S) [Mass/Vol] 5.1 g/dL High 2.2-4.2 [facility] Serum or plasma alanine hawkins otransferase (ALT) measurementOrdered By: Nando Wiggins on 06-06-2024 ALT [Catalytic activity/Vol] 18 U/L 16-61 [facility] Serum or plasma albumin lilli urement (mass/volume)Ordered By: Nando Wiggins on 06-06-2024 Albumin [Mass/Vol] 2.4 g/dL Low 3.2-5.0 [facility] Serum or plasma alkaline penelope sphatase measurementOrdered By: Nando Wiggins on 06-06-2024 ALP [Catalytic activity/Vol] 68 U/L 45-117 [facility] Total proteinOrdered By: Sinan Wiggins on 06-06-2024 Protein [Mass/Vol] 7.5 g/dL 6.4-8.2 [facility] Wound Cultureon 06-05-2024 WC Normal [facility] Comment on above: Performed By: #### M 100.2000, M100.3000, M100.4001 ####[facility] [address] [place], [address] MR/PAT.ANEon 06-04-2024 MR/PAT.ANE Normal [facility] CNPNon 05-30-2024 CNPN Normal [facility] History AND Physic ariella 05-29-2024 Wound Ctr History & Physical Normal [facility] Operative Reporton Operative Report Normal [facility] Wound Ctr History AND Physic ariella 05-17-2024 Wound Ctr History & Physical Normal [facility] Basic Metabolic Profile (BMP )on 05-14-2024 BUN Normal 7-18 [facility] Comment on above: Result Comment: Canc elled via OM: Order cancelled - Patient discharged Performed By: #### L 500.2500 ####[facility] [address] [place], [address] Result Comment: Canc elled via OM: MD Ordered Performed By: #### L 100.0500, L500.2500 ####[facility] [address] [place], [address] BUN/CRE Normal 10-20 [facility] Comment on above: Result Comment: Canc elled via OM: Order cancelled - Patient discharged Performed By: #### L 500.2500 ####[facility] [address] [place], [address] Result Comment: Canc elled via OM: MD Ordered Performed By: #### L 100.0500, L500.2500 ####[facility] [address] [place], [address] CA,Total Normal 8.5-10.1 [facility] Comment on above: Result Comment: Canc elled via OM: Order cancelled - Patient discharged Performed By: #### L 500.2500 ####[facility] [address] [place], [address] Result Comment: Canc elled via OM: MD Ordered Performed By: #### L 100.0500, L500.2500 ####[facility] [address] [place], [address] CL Normal 98-107 [facility] Comment on above: Result Comment: Canc elled via OM: Order cancelled - Patient discharged Performed By: #### L 500.2500 ####[facility] [address] [place], [address] Result Comment: Canc elled via OM: MD Ordered Performed By: #### L 100.0500, L500.2500 ####[facility] [address] [place], [address] CO2 Normal 21.0-32.0 [facility] Comment on above: Result Comment: Canc elled via OM: Order cancelled - Patient discharged Performed By: #### L 500.2500 ####[facility] [address] [place], [address] Result Comment: Canc elled via OM: MD Ordered Performed By: #### L 100.0500, L500.2500 ####[facility] [address] [place], [address] CREAT,SERUM Normal 0.70-1.30 [facility] Comment on above: Result Comment: Canc elled via OM: Order cancelled - Patient discharged Performed By: #### L 500.2500 ####[facility] [address] [place], [address] Result Comment: Canc elled via OM: MD Ordered Performed By: #### L 100.0500, L500.2500 ####[facility] [address] [place], [address] EST GFR Normal >60 [facility] Comment on above: Result Comment: Canc elled via OM: Order cancelled - Patient discharged Performed By: #### L 500.2500 ####[facility] [address] [place], [address] Result Comment: Canc elled via OM: MD Ordered Performed By: #### L 100.0500, L500.2500 ####[facility] [address] [place], [address] EST GFR - AA Normal >60 [facility] Comment on above: Result Comment: Canc elled via OM: Order cancelled - Patient discharged Performed By: #### L 500.2500 ####[facility] [address] [place], [address] Result Comment: Canc elled via OM: MD Ordered Performed By: #### L 100.0500, L500.2500 ####[facility] [address] [place], [address] GAP Normal 5-15 [facility] Comment on above: Result Comment: Canc elled via OM: Order cancelled - Patient discharged Performed By: #### L 500.2500 ####[facility] [address], [address] Result Comment: Canc elled via OM: MD Ordered Performed By: #### L 100.0500, L500.2500 ####[facility] [address] [place], [address] GLU Normal 74-106 [facility] Comment on above: Result Comment: Canc elled via OM: Order cancelled - Patient discharged Performed By: #### L 500.2500 ####[facility] [address] [place], [address] Result Comment: Canc elled via OM: MD Ordered Performed By: #### L 100.0500, L500.2500 ####[facility] [address] [place], [address] Potassium Normal 3.5-5.1 [facility] Comment on above: Result Comment: Canc elled via OM: Order cancelled - Patient discharged Performed By: #### L 500.2500 ####[facility] [address] [place], [address] Result Comment: Canc elled via OM: MD Ordered Performed By: #### L 100.0500, L500.2500 ####[facility] [address] [place], [address] Basic Metabolic Profile (BMP) Normal 136-145 [facility] Comment on above: Result Comment: Canc elled via OM: Order cancelled - Patient discharged Performed By: #### L 500.2500 ####[facility] [address] [place], [address] Result Comment: Canc elled via OM: MD Ordered Performed By: #### L 100.0500, L500.2500 ####[facility] [address] [place], [address] CBC-Complete Blood Cnt No Di ffon 05-14-2024 HCT Normal 40-54 [facility] Comment on above: Result Comment: Canc elled via OM: Order cancelled - Patient discharged Performed By: #### L 100.0500 ####[facility] [address] [place], [address] HGB Normal 13.0-16.5 [facility] Comment on above: Result Comment: Canc elled via OM: Order cancelled - Patient discharged Performed By: #### L 100.0500 ####[facility] [address] [place], [address] MCH Normal 27.0-32.0 [facility] Comment on above: Result Comment: Canc elled via OM: Order cancelled - Patient discharged Performed By: #### L 100.0500 ####[facility] [address] [place], [address] MCHC Normal 32-36 [facility] Comment on above: Result Comment: Canc elled via OM: Order cancelled - Patient discharged Performed By: #### L 100.0500 ####[facility] [address] [place], [address] MCV Normal 80-94 [facility] Comment on above: Result Comment: Canc elled via OM: Order cancelled - Patient discharged Performed By: #### L 100.0500 ####[facility] [address] [place], [address] PLT Normal 150-450 [facility] Comment on above: Result Comment: Canc elled via OM: Order cancelled - Patient discharged Performed By: #### L 100.0500 ####[facility] [address] [place], [address] RBC Normal 4.6-6.2 [facility] Comment on above: Result Comment: Canc elled via OM: Order cancelled - Patient discharged Performed By: #### L 100.0500 ####[facility] [address] [place], [address] RDW CV Normal 11.6-14.6 [facility] Comment on above: Result Comment: Canc elled via OM: Order cancelled - Patient discharged Performed By: #### L 100.0500 ####[facility] [address], [address] RDW SD Normal 35.1-43.9 [facility] Comment on above: Result Comment: Canc elled via OM: Order cancelled - Patient discharged Performed By: #### L 100.0500 ####[facility] [address] [place], [address] WBC Normal 4.4-11.0 [facility] Comment on above: Result Comment: Canc elled via OM: Order cancelled - Patient discharged Performed By: #### L 100.0500 ####[facility] [address] [place], [address] HCT Normal 40-54 [facility] Comment on above: Result Comment: Canc elled via OM: MD Ordered Performed By: #### L 100.0500, L500.2500 ####[facility] [address] [place], [address] HGB Normal 13.0-16.5 [facility] Comment on above: Result Comment: Canc elled via OM: MD Ordered Performed By: #### L 100.0500, L500.2500 ####[facility] [address] [place], [address] MCH Normal 27.0-32.0 [facility] Comment on above: Result Comment: Canc elled via OM: MD Ordered Performed By: #### L 100.0500, L500.2500 ####[facility] [address] [place], [address] MCHC Normal 32-36 [facility] Comment on above: Result Comment: Canc elled via OM: MD Ordered Performed By: #### L 100.0500, L500.2500 ####[facility] [address] [place], [address] MCV Normal 80-94 [facility] Comment on above: Result Comment: Canc elled via OM: MD Ordered Performed By: #### L 100.0500, L500.2500 ####[facility] [address] [place], [address] PLT Normal 150-450 [facility] Comment on above: Result Comment: Canc elled via OM: MD Ordered Performed By: #### L 100.0500, L500.2500 ####[facility] [address] [place], [address] RBC Normal 4.6-6.2 [facility] Comment on above: Result Comment: Canc elled via OM: MD Ordered Performed By: #### L 100.0500, L500.2500 ####[facility] [address] [place], [address] RDW CV Normal 11.6-14.6 [facility] Comment on above: Result Comment: Canc elled via OM: MD Ordered Performed By: #### L 100.0500, L500.2500 ####[facility] [address] [place], [address] RDW SD Normal 35.1-43.9 [facility] Comment on above: Result Comment: Canc elled via OM: MD Ordered Performed By: #### L 100.0500, L500.2500 ####[facility] [address] [place], [address] WBC Normal 4.4-11.0 [facility] Comment on above: Result Comment: Canc elled via OM: MD Ordered Performed By: #### L 100.0500, L500.2500 ####[facility] [address] [place], [address] Basic Metabolic Profile (BMP )on 05-13-2024 BUN Normal 7-18 [facility] Comment on above: Result Comment: Canc elled via OM: MD Ordered Performed By: #### L 500.2500, L100.0500 ####[facility] [address] [place], [address] BUN/CRE Normal 10-20 [facility] Comment on above: Result Comment: Canc elled via OM: MD Ordered Performed By: #### L 500.2500, L100.0500 ####[facility] [address] [place], [address] CA,Total Normal 8.5-10.1 [facility] Comment on above: Result Comment: Canc elled via OM: MD Ordered Performed By: #### L 500.2500, L100.0500 ####[facility] [address] [place], [address] CL Normal 98-107 [facility] Comment on above: Result Comment: Canc elled via OM: MD Ordered Performed By: #### L 500.2500, L100.0500 ####[facility] [address] [place], [address] CO2 Normal 21.0-32.0 [facility] Comment on above: Result Comment: Canc elled via OM: MD Ordered Performed By: #### L 500.2500, L100.0500 ####[facility] [address] [place], [address] CREAT,SERUM Normal 0.70-1.30 [facility] Comment on above: Result Comment: Canc elled via OM: MD Ordered Performed By: #### L 500.2500, L100.0500 ####[facility] [address] [place], [address] EST GFR Normal >60 [facility] Comment on above: Result Comment: Canc elled via OM: MD Ordered Performed By: #### L 500.2500, L100.0500 ####[facility] [address] [place], [address] EST GFR - AA Normal >60 [facility] Comment on above: Result Comment: Canc elled via OM: MD Ordered Performed By: #### L 500.2500, L100.0500 ####[facility] [address] [place], [address] GAP Normal 5-15 [facility] Comment on above: Result Comment: Canc elled via OM: MD Ordered Performed By: #### L 500.2500, L100.0500 ####[facility] [address] [place], [address] GLU Normal 74-106 [facility] Comment on above: Result Comment: Canc elled via OM: MD Ordered Performed By: #### L 500.2500, L100.0500 ####[facility] [address] [place], [address] Potassium Normal 3.5-5.1 [facility] Comment on above: Result Comment: Canc elled via OM: MD Ordered Performed By: #### L 500.2500, L100.0500 ####[facility] [address] [place], [address] Basic Metabolic Profile (BMP) Normal 136-145 [facility] Comment on above: Result Comment: Canc elled via OM: MD Ordered Performed By: #### L 500.2500, L100.0500 ####[facility] [address] [place], [address] CBC-Complete Blood Cnt No Di ffon 05-13-2024 HCT Normal 40-54 [facility] Comment on above: Result Comment: Canc elled via OM: MD Ordered Performed By: #### L 500.2500, L100.0500 ####[facility] [address] [place], [address] HGB Normal 13.0-16.5 [facility] Comment on above: Result Comment: Canc elled via OM: MD Ordered Performed By: #### L 500.2500, L100.0500 ####[facility] [address] [place], [address] MCH Normal 27.0-32.0 [facility] Comment on above: Result Comment: Canc elled via OM: MD Ordered Performed By: #### L 500.2500, L100.0500 ####[facility] [address] [place], [address] MCHC Normal 32-36 [facility] Comment on above: Result Comment: Canc elled via OM: MD Ordered Performed By: #### L 500.2500, L100.0500 ####[facility] [address] [place], [address] MCV Normal 80-94 [facility] Comment on above: Result Comment: Canc elled via OM: MD Ordered Performed By: #### L 500.2500, L100.0500 ####[facility] [address] [place], [address] PLT Normal 150-450 [facility] Comment on above: Result Comment: Canc elled via OM: MD Ordered Performed By: #### L 500.2500, L100.0500 ####[facility] [address] [place], [address] RBC Normal 4.6-6.2 [facility] Comment on above: Result Comment: Canc elled via OM: MD Ordered Performed By: #### L 500.2500, L100.0500 ####[facility] [address] [place], [address] RDW CV Normal 11.6-14.6 [facility] Comment on above: Result Comment: Canc elled via OM: MD Ordered Performed By: #### L 500.2500, L100.0500 ####[facility] [address] [place], [address] RDW SD Normal 35.1-43.9 [facility] Comment on above: Result Comment: Canc elled via OM: MD Ordered Performed By: #### L 500.2500, L100.0500 ####[facility] [address] [place], [address] WBC Normal 4.4-11.0 [facility] Comment on above: Result Comment: Canc elled via OM: MD Ordered Performed By: #### L 500.2500, L100.0500 ####[facility] [address] [place], [address] Basic Metabolic Profile (BMP )on 05-12-2024 BUN Normal 7-18 [facility] Comment on above: Result Comment: Canc elled via OM: Order cancelled - Patient discharged Performed By: #### L 500.2500 ####[facility] [address] [place], [address] Result Comment: Canc elled via OM: MD Ordered Performed By: #### L 100.0500, L500.2500 ####[facility] [address] [place], [address] BUN/CRE Normal 10-20 [facility] Comment on above: Result Comment: Canc elled via OM: Order cancelled - Patient discharged Performed By: #### L 500.2500 ####[facility] [address] [place], [address] Result Comment: Canc elled via OM: MD Ordered Performed By: #### L 100.0500, L500.2500 ####[facility] [address] [place], [address] CA,Total Normal 8.5-10.1 [facility] Comment on above: Result Comment: Canc elled via OM: Order cancelled - Patient discharged Performed By: #### L 500.2500 ####[facility] [address] [place], [address] Result Comment: Canc elled via OM: MD Ordered Performed By: #### L 100.0500, L500.2500 ####[facility] [address] [place], [address] CL Normal 98-107 [facility] Comment on above: Result Comment: Canc elled via OM: Order cancelled - Patient discharged Performed By: #### L 500.2500 ####[facility] [address] [place], [address] Result Comment: Canc elled via OM: MD Ordered Performed By: #### L 100.0500, L500.2500 ####[facility] [address] [place], [address] CO2 Normal 21.0-32.0 [facility] Comment on above: Result Comment: Canc elled via OM: Order cancelled - Patient discharged Performed By: #### L 500.2500 ####[facility] [address] [place], [address] Result Comment: Canc elled via OM: MD Ordered Performed By: #### L 100.0500, L500.2500 ####[facility] [address] [place], [address] CREAT,SERUM Normal 0.70-1.30 [facility] Comment on above: Result Comment: Canc elled via OM: Order cancelled - Patient discharged Performed By: #### L 500.2500 ####[facility] [address] [place], [address] Result Comment: Canc elled via OM: MD Ordered Performed By: #### L 100.0500, L500.2500 ####[facility] [address] [place], [address] EST GFR Normal >60 [facility] Comment on above: Result Comment: Canc elled via OM: Order cancelled - Patient discharged Performed By: #### L 500.2500 ####[facility] [address] [place], [address] Result Comment: Canc elled via OM: MD Ordered Performed By: #### L 100.0500, L500.2500 ####[facility] [address] [place], [address] EST GFR - AA Normal >60 [facility] Comment on above: Result Comment: Canc elled via OM: Order cancelled - Patient discharged Performed By: #### L 500.2500 ####[facility] [address] [place], [address] Result Comment: Canc elled via OM: MD Ordered Performed By: #### L 100.0500, L500.2500 ####[facility] [address] [place], [address] GAP Normal 5-15 [facility] Comment on above: Result Comment: Canc elled via OM: Order cancelled - Patient discharged Performed By: #### L 500.2500 ####[facility] [address] [place], [address] Result Comment: Canc elled via OM: MD Ordered Performed By: #### L 100.0500, L500.2500 ####[facility] [address] [place], [address] GLU Normal 74-106 [facility] Comment on above: Result Comment: Canc elled via OM: Order cancelled - Patient discharged Performed By: #### L 500.2500 ####[facility] [address] [place], [address] Result Comment: Canc elled via OM: MD Ordered Performed By: #### L 100.0500, L500.2500 ####[facility] [address] [place], [address] Potassium Normal 3.5-5.1 [facility] Comment on above: Result Comment: Canc elled via OM: Order cancelled - Patient discharged Performed By: #### L 500.2500 ####[facility] [address] [place], [address] Result Comment: Canc elled via OM: MD Ordered Performed By: #### L 100.0500, L500.2500 ####[facility] [address] [place], [address] Basic Metabolic Profile (BMP) Normal 136-145 [facility] Comment on above: Result Comment: Canc elled via OM: Order cancelled - Patient discharged Performed By: #### L 500.2500 ####[facility] [address] [place], [address] Result Comment: Canc elled via OM: MD Ordered Performed By: #### L 100.0500, L500.2500 ####[facility] [address] [place], [address] CBC-Complete Blood Cnt No Di ffon 05-12-2024 HCT Normal 40-54 [facility] Comment on above: Result Comment: Canc elled via OM: Order cancelled - Patient discharged Performed By: #### L 100.0500 ####[facility] [address] [place], [address] HGB Normal 13.0-16.5 [facility] Comment on above: Result Comment: Canc elled via OM: Order cancelled - Patient discharged Performed By: #### L 100.0500 ####[facility] [address] [place], [address] MCH Normal 27.0-32.0 [facility] Comment on above: Result Comment: Canc elled via OM: Order cancelled - Patient discharged Performed By: #### L 100.0500 ####[facility] [address] [place], [address] MCHC Normal 32-36 [facility] Comment on above: Result Comment: Canc elled via OM: Order cancelled - Patient discharged Performed By: #### L 100.0500 ####[facility] [address] [place], [address] MCV Normal 80-94 [facility] Comment on above: Result Comment: Canc elled via OM: Order cancelled - Patient discharged Performed By: #### L 100.0500 ####[facility] [address] [place], [address] PLT Normal 150-450 [facility] Comment on above: Result Comment: Canc elled via OM: Order cancelled - Patient discharged Performed By: #### L 100.0500 ####[facility] [address] [place], [address] RBC Normal 4.6-6.2 [facility] Comment on above: Result Comment: Canc elled via OM: Order cancelled - Patient discharged Performed By: #### L 100.0500 ####[facility] [address] [place], [address] RDW CV Normal 11.6-14.6 [facility] Comment on above: Result Comment: Canc elled via OM: Order cancelled - Patient discharged Performed By: #### L 100.0500 ####[facility] [address] [place], [address] RDW SD Normal 35.1-43.9 [facility] Comment on above: Result Comment: Canc elled via OM: Order cancelled - Patient discharged Performed By: #### L 100.0500 ####[facility] [address] [place], [address] WBC Normal 4.4-11.0 [facility] Comment on above: Result Comment: Canc elled via OM: Order cancelled - Patient discharged Performed By: #### L 100.0500 ####[facility] [address] [place], [address] HCT Normal 40-54 [facility] Comment on above: Result Comment: Canc elled via OM: MD Ordered Performed By: #### L 100.0500, L500.2500 ####[facility] [address] [place], [address] HGB Normal 13.0-16.5 [facility] Comment on above: Result Comment: Canc elled via OM: MD Ordered Performed By: #### L 100.0500, L500.2500 ####[facility] [address] [place], [address] MCH Normal 27.0-32.0 [facility] Comment on above: Result Comment: Canc elled via OM: MD Ordered Performed By: #### L 100.0500, L500.2500 ####[facility] [address] [place], [address] MCHC Normal 32-36 [facility] Comment on above: Result Comment: Canc elled via OM: MD Ordered Performed By: #### L 100.0500, L500.2500 ####[facility] [address] [place], [address] MCV Normal 80-94 [facility] Comment on above: Result Comment: Canc elled via OM: MD Ordered Performed By: #### L 100.0500, L500.2500 ####[facility] [address] [place], [address] PLT Normal 150-450 [facility] Comment on above: Result Comment: Canc elled via OM: MD Ordered Performed By: #### L 100.0500, L500.2500 ####[facility] [address] [place], [address] RBC Normal 4.6-6.2 [facility] Comment on above: Result Comment: Canc elled via OM: MD Ordered Performed By: #### L 100.0500, L500.2500 ####[facility] [address] [place], [address] RDW CV Normal 11.6-14.6 [facility] Comment on above: Result Comment: Canc elled via OM: MD Ordered Performed By: #### L 100.0500, L500.2500 ####[facility] [address] [place], [address] RDW SD Normal 35.1-43.9 [facility] Comment on above: Result Comment: Canc elled via OM: MD Ordered Performed By: #### L 100.0500, L500.2500 ####[facility] [address] [place], [address] WBC Normal 4.4-11.0 [facility] Comment on above: Result Comment: Canc elled via OM: MD Ordered Performed By: #### L 100.0500, L500.2500 ####[facility] [address] [place], [address] Basic Metabolic Profile (BMP )on 05-11-2024 BUN Normal 7-18 [facility] Comment on above: Result Comment: Canc elled via OM: MD Ordered Performed By: #### L 500.2500, L100.0500 ####[facility] [address] [place], [address] BUN/CRE Normal 10-20 [facility] Comment on above: Result Comment: Canc elled via OM: MD Ordered Performed By: #### L 500.2500, L100.0500 ####[facility] [address] [place], [address] CA,Total Normal 8.5-10.1 [facility] Comment on above: Result Comment: Canc elled via OM: MD Ordered Performed By: #### L 500.2500, L100.0500 ####[facility] [address] [place], [address] CL Normal 98-107 [facility] Comment on above: Result Comment: Canc elled via OM: MD Ordered Performed By: #### L 500.2500, L100.0500 ####[facility] [address] [place], [address] CO2 Normal 21.0-32.0 [facility] Comment on above: Result Comment: Canc elled via OM: MD Ordered Performed By: #### L 500.2500, L100.0500 ####[facility] [address] [place], [address] CREAT,SERUM Normal 0.70-1.30 [facility] Comment on above: Result Comment: Canc elled via OM: MD Ordered Performed By: #### L 500.2500, L100.0500 ####[facility] [address] [place], [address] EST GFR Normal >60 [facility] Comment on above: Result Comment: Canc elled via OM: MD Ordered Performed By: #### L 500.2500, L100.0500 ####[facility] [address] [place], [address] EST GFR - AA Normal >60 [facility] Comment on above: Result Comment: Canc elled via OM: MD Ordered Performed By: #### L 500.2500, L100.0500 ####[facility] [address] [place], [address] GAP Normal 5-15 [facility] Comment on above: Result Comment: Canc elled via OM: MD Ordered Performed By: #### L 500.2500, L100.0500 ####[facility] [address] [place], [address] GLU Normal 74-106 [facility] Comment on above: Result Comment: Canc elled via OM: MD Ordered Performed By: #### L 500.2500, L100.0500 ####[facility] [address] [place], [address] Potassium Normal 3.5-5.1 [facility] Comment on above: Result Comment: Canc elled via OM: MD Ordered Performed By: #### L 500.2500, L100.0500 ####[facility] [address] [place], [address] Basic Metabolic Profile (BMP) Normal 136-145 [facility] Comment on above: Result Comment: Canc elled via OM: MD Ordered Performed By: #### L 500.2500, L100.0500 ####[facility] [address] [place], [address] CBC-Complete Blood Cnt No Di ffon 05-11-2024 HCT Normal 40-54 [facility] Comment on above: Result Comment: Canc elled via OM: MD Ordered Performed By: #### L 500.2500, L100.0500 ####[facility] [address] [place], [address] HGB Normal 13.0-16.5 [facility] Comment on above: Result Comment: Canc elled via OM: MD Ordered Performed By: #### L 500.2500, L100.0500 ####[facility] [address] [place], [address] MCH Normal 27.0-32.0 [facility] Comment on above: Result Comment: Canc elled via OM: MD Ordered Performed By: #### L 500.2500, L100.0500 ####[facility] [address] [place], [address] MCHC Normal 32-36 [facility] Comment on above: Result Comment: Canc elled via OM: MD Ordered Performed By: #### L 500.2500, L100.0500 ####[facility] [address] [place], [address] MCV Normal 80-94 [facility] Comment on above: Result Comment: Canc elled via OM: MD Ordered Performed By: #### L 500.2500, L100.0500 ####[facility] [address] [place], [address] PLT Normal 150-450 [facility] Comment on above: Result Comment: Canc elled via OM: MD Ordered Performed By: #### L 500.2500, L100.0500 ####[facility] [address] [place], [address] RBC Normal 4.6-6.2 [facility] Comment on above: Result Comment: Canc elled via OM: MD Ordered Performed By: #### L 500.2500, L100.0500 ####[facility] [address] [place], [address] RDW CV Normal 11.6-14.6 [facility] Comment on above: Result Comment: Canc elled via OM: MD Ordered Performed By: #### L 500.2500, L100.0500 ####[facility] [address] [place], [address] RDW SD Normal 35.1-43.9 [facility] Comment on above: Result Comment: Canc elled via OM: MD Ordered Performed By: #### L 500.2500, L100.0500 ####[facility] [address] [place], [address] WBC Normal 4.4-11.0 [facility] Comment on above: Result Comment: Canc elled via OM: MD Ordered Performed By: #### L 500.2500, L100.0500 ####[facility] [address] [place], [address] Basic Metabolic Profile (BMP )on 05-10-2024 BUN/CRE 9.4 RATIO Low 10-20 [facility] Comment on above: Performed By: #### L 500.2500, L100.0500 ####[facility] [address] [place], [address] CA,Total 8.8 mg/dL Normal 8.5-10.1 [facility] Comment on above: Performed By: #### L 500.2500, L100.0500 ####[facility] [address] [place], [address] Chloride [Moles/Vol] 102 mmol/L Normal 98-107 [facility] Comment on above: Performed By: #### L 500.2500, L100.0500 ####[facility] [address] [place], [address] CO2 [Moles/Vol] 25.0 mmol/L Normal 21.0-32.0 [facility] Comment on above: Performed By: #### L 500.2500, L100.0500 ####[facility] [address] [place], [address] Creatinine [Mass/Vol] 5.98 mg/dL High 0.70-1.30 [facility] Comment on above: Result Comment: The validity of the calculated GFR GFRAA in patients over70 years has not been determined. Clinical correlation isessential. Performed By: #### L 500.2500, L100.0500 ####[facility] [address] [place], [address] ECRCL 9.33 ml/min Normal [facility] Comment on above: Performed By: #### L 500.2500, L100.0500 ####[facility] [address] [place], [address] EST GFR - AA 12 mL/min Low >60 [facility] Comment on above: Result Comment: Afri can Senegalese GFR Calc Performed By: #### L 500.2500, L100.0500 ####[facility] [address] [place], [address] GAP 8 Normal 5-15 [facility] Comment on above: Performed By: #### L 500.2500, L100.0500 ####[facility] [address] [place], [address] GFR/1.73 sq M.predicted among non-blacks MDRD (S/P/Bld) [Vol rate/Area] 10 mL/min/{1.73_m2} Low >60 [facility] Comment on above: Result Comment: Non- GFR Calc Performed By: #### L 500.2500, L100.0500 ####[facility] [address] [place], [address] Glucose [Mass/Vol] 141 mg/dL High 74-106 [facility] Comment on above: Result Comment: Fast ing Glucose result greater than or equal to 126 mg/dLsuggests DIABETES MELLITUS per A.D.A. criteria. Performed By: #### L 500.2500, L100.0500 ####[facility] [address] [place], [address] Potassium [Moles/Vol] 4.2 mmol/L Normal 3.5-5.1 [facility] Comment on above: Performed By: #### L 500.2500, L100.0500 ####[facility] [address] [place], [address] Sodium [Moles/Vol] 135 mmol/L Low 136-145 [facility] Comment on above: Performed By: #### L 500.2500, L100.0500 ####[facility] [address] [place], [address] Urea nitrogen [Mass/Vol] 56 mg/dL High 7-18 [facility] Comment on above: Performed By: #### L 500.2500, L100.0500 ####[facility] [address] [place], [address] Bedside Glucoseon 05-10-2024 FINGERSTICK GLU 188 mg/dL High 74-106 [facility] Comment on above: Result Comment: FANG GEMENT OF PATIENT CARE PER NURSING PROTOCOL Performed By: #### L 501.080 ####[facility] [address] [place], [address] FINGERSTICK GLU 165 mg/dL High 74-106 [facility] Comment on above: Result Comment: FANG GEMENT OF PATIENT CARE PER NURSING PROTOCOL Performed By: #### L 501.080 ####[facility] [address] [place], [address] FINGERSTICK GLU 115 mg/dL High 74-106 [facility] Comment on above: Result Comment: FANG GEMENT OF PATIENT CARE PER NURSING PROTOCOL Performed By: #### L 501.080 ####[facility] [address] [place], [address] CBC-Complete Blood Cnt No Di ffon 05-10-2024 Erythrocyte distribution width (RBC) [Ratio] 15.0 % High 11.6-14.6 [facility] Comment on above: Performed By: #### L 500.2500, L100.0500 ####[facility] [address] [place], [address] Hematocrit (Bld) [Volume fraction] 29.9 % Low 40-54 [facility] Comment on above: Performed By: #### L 500.2500, L100.0500 ####[facility] [address] [place], [address] Hemoglobin (Bld) [Mass/Vol] 9.2 g/dL Low 13.0-16.5 [facility] Comment on above: Performed By: #### L 500.2500, L100.0500 ####[facility] [address] [place], [address] MCH (RBC) [Entitic mass] 29.3 pg Normal 27.0-32.0 [facility] Comment on above: Performed By: #### L 500.2500, L100.0500 ####[facility] [address] [place], [address] MCHC (RBC) [Mass/Vol] 30.8 g/dL Low 32-36 [facility] Comment on above: Performed By: #### L 500.2500, L100.0500 ####[facility] [address] [place], [address] MCV (RBC) [Entitic vol] 95.2 fL High 80-94 [facility] Comment on above: Performed By: #### L 500.2500, L100.0500 ####[facility] [address] [place], [address] Platelet mean volume (Bld) [Entitic vol] 10.5 fL Normal 6.2-12.0 [facility] Comment on above: Performed By: #### L 500.2500, L100.0500 ####[facility] [address] [place], [address] Platelets (Bld) [#/Vol] 205 10*3/uL Normal 150-450 [facility] Comment on above: Performed By: #### L 500.2500, L100.0500 ####[facility] [address] [place], [address] RBC (Bld) [#/Vol] 3.14 10*6/uL Low 4.6-6.2 [facility] Comment on above: Performed By: #### L 500.2500, L100.0500 ####[facility] [address] [place], [address] RDW SD 51.8 fl High 35.1-43.9 [facility] Comment on above: Performed By: #### L 500.2500, L100.0500 ####[facility] [address] [place], [address] WBC (Bld) [#/Vol] 8.2 10*3/uL Normal 4.4-11.0 [facility] Comment on above: Performed By: #### L 500.2500, L100.0500 ####[facility] [address] [place], [address] Culture, Anaerobic Any Sourc reed 05-10-2024 CUAN COLLECTED IN OR RIGH T HALLUX AND 1ST METATARSAL No anaerobic bacteria isolated. Normal [facility] Comment on above: Performed By: #### M 100.2000, M100.3000, M100.4001 ####[facility] [address] [place], [address] Vancomycin, Random Levelon 1 07-11-2023 VANCO, RANDOM 21.6 ug/mL High 0.0-15.0 [facility] Comment on above: Order Comment: Comme nts: PLEASE DRAW PRE-DIALYSIS Result Comment: VANC OMYCIN STANDARD DRUG THERAPY: CRITICAL VALUE IS > 15.0 mg/LVANCOMYCIN HIGH INTENSITY THERAPY: CRITICAL VALUE IS > 20.0 mg/LPLEASE CONTACT PHARMACY SERVICES (#9998) FOR INTERPRETATIONOF RESULTS. THIS RESULT DOES NOT REPRESENT A PEAK OR TROUGHLEVEL FOR THIS DRUG. Performed By: #### L 501.4359 ####[facility] [address] [place], [address] Basic Metabolic Profile (BMP )on 05-09-2024 BUN/CRE 9.9 RATIO Low 10-20 [facility] Comment on above: Performed By: #### L 100.0500, L500.2500 ####[facility] [address] [place], [address] CA,Total 8.8 mg/dL Normal 8.5-10.1 [facility] Comment on above: Performed By: #### L 100.0500, L500.2500 ####[facility] [address] [place], [address] Chloride [Moles/Vol] 102 mmol/L Normal 98-107 [facility] Comment on above: Performed By: #### L 100.0500, L500.2500 ####[facility] [address] [place], [address] CO2 [Moles/Vol] 27.0 mmol/L Normal 21.0-32.0 [facility] Comment on above: Performed By: #### L 100.0500, L500.2500 ####[facility] [address] [place], [address] Creatinine [Mass/Vol] 4.74 mg/dL High 0.70-1.30 [facility] Comment on above: Result Comment: The validity of the calculated GFR GFRAA in patients over70 years has not been determined. Clinical correlation isessential. Performed By: #### L 100.0500, L500.2500 ####[facility] [address] [place], [address] ECRCL 11.77 ml/min Normal [facility] Comment on above: Performed By: #### L 100.0500, L500.2500 ####[facility] [address] [place], [address] EST GFR - AA 15 mL/min Low >60 [facility] Comment on above: Result Comment: Afri can [place] GFR Calc Performed By: #### L 100.0500, L500.2500 ####[facility] [address] [place], [address] GAP 6 Normal 5-15 [facility] Comment on above: Performed By: #### L 100.0500, L500.2500 ####[facility] [address] [place], [address] GFR/1.73 sq M.predicted among non-blacks MDRD (S/P/Bld) [Vol rate/Area] 13 mL/min/{1.73_m2} Low >60 [facility] Comment on above: Result Comment: Non- GFR Calc Performed By: #### L 100.0500, L500.2500 ####[facility] [address] [place], [address] Glucose [Mass/Vol] 105 mg/dL Normal 74-106 [facility] Comment on above: Result Comment: Fast ing Glucose result from 100 to 125 mg/dLsuggests IMPAIRED HOMEOSTASIS per A.D.A. criteria. Performed By: #### L 100.0500, L500.2500 ####[facility] [address] [place], [address] Potassium [Moles/Vol] 4.2 mmol/L Normal 3.5-5.1 [facility] Comment on above: Performed By: #### L 100.0500, L500.2500 ####[facility] [address] [place], [address] Sodium [Moles/Vol] 135 mmol/L Low 136-145 [facility] Comment on above: Performed By: #### L 100.0500, L500.2500 ####[facility] [address] [place], [address] Urea nitrogen [Mass/Vol] 47 mg/dL High 7-18 [facility] Comment on above: Performed By: #### L 100.0500, L500.2500 ####[facility] [address] [place], [address] Bedside Glucoseon 05-09-2024 FINGERSTICK GLU 176 mg/dL High 74-106 [facility] Comment on above: Result Comment: FANG GEMENT OF PATIENT CARE PER NURSING PROTOCOL Performed By: #### L 501.080 ####[facility] [address] [place], [address] FINGERSTICK GLU 264 mg/dL High 74-106 [facility] Comment on above: Result Comment: FANG GEMENT OF PATIENT CARE PER NURSING PROTOCOL Performed By: #### L 501.080 ####[facility] [address] [place], [address] FINGERSTICK GLU 90 mg/dL Normal 74-106 [facility] Comment on above: Result Comment: FANG VAZQUEZ OF PATIENT CARE PER NURSING PROTOCOL Performed By: #### L 501.080 ####[facility] [address] [place], [address] CBC-Complete Blood Cnt No Di ffon 05-09-2024 Erythrocyte distribution width (RBC) [Ratio] 15.1 % High 11.6-14.6 [facility] Comment on above: Performed By: #### L 100.0500, L500.2500 ####[facility] [address] [place], [address] Hematocrit (Bld) [Volume fraction] 29.4 % Low 40-54 [facility] Comment on above: Performed By: #### L 100.0500, L500.2500 ####[facility] [address] [place], [address] Hemoglobin (Bld) [Mass/Vol] 8.7 g/dL Low 13.0-16.5 [facility] Comment on above: Performed By: #### L 100.0500, L500.2500 ####[facility] [address] [place], [address] MCH (RBC) [Entitic mass] 28.5 pg Normal 27.0-32.0 [facility] Comment on above: Performed By: #### L 100.0500, L500.2500 ####[facility] [address] [place], [address] MCHC (RBC) [Mass/Vol] 29.6 g/dL Low 32-36 [facility] Comment on above: Performed By: #### L 100.0500, L500.2500 ####[facility] [address] [place], [address] MCV (RBC) [Entitic vol] 96.4 fL High 80-94 [facility] Comment on above: Performed By: #### L 100.0500, L500.2500 ####[facility] [address] [place], [address] Platelet mean volume (Bld) [Entitic vol] 11.5 fL Normal 6.2-12.0 [facility] Comment on above: Performed By: #### L 100.0500, L500.2500 ####[facility] [address] [place], [address] Platelets (Bld) [#/Vol] 206 10*3/uL Normal 150-450 [facility] Comment on above: Performed By: #### L 100.0500, L500.2500 ####[facility] [address] [place], [address] RBC (Bld) [#/Vol] 3.05 10*6/uL Low 4.6-6.2 [facility] Comment on above: Performed By: #### L 100.0500, L500.2500 ####[facility] [address] [place], [address] RDW SD 53.7 fl High 35.1-43.9 [facility] Comment on above: Performed By: #### L 100.0500, L500.2500 ####[facility] [address] [place], [address] WBC (Bld) [#/Vol] 10.1 10*3/uL Normal 4.4-11.0 [facility] Comment on above: Performed By: #### L 100.0500, L500.2500 ####[facility] [address] [place], [address] Basic Metabolic Profile (BMP )on 05-08-2024 BUN/CRE 12.0 RATIO Normal 10-20 [facility] Comment on above: Performed By: #### L 500.2500, L100.0500 ####[facility] [address] [place], [address] CA,Total 8.5 mg/dL Normal 8.5-10.1 [facility] Comment on above: Performed By: #### L 500.2500, L100.0500 ####[facility] [address] [place], [address] Chloride [Moles/Vol] 99 mmol/L Normal 98-107 [facility] Comment on above: Performed By: #### L 500.2500, L100.0500 ####[facility] [address] [place], [address] CO2 [Moles/Vol] 27.0 mmol/L Normal 21.0-32.0 [facility] Comment on above: Performed By: #### L 500.2500, L100.0500 ####[facility] [address] [place], [address] Creatinine [Mass/Vol] 6.26 mg/dL High 0.70-1.30 [facility] Comment on above: Result Comment: The validity of the calculated GFR GFRAA in patients over70 years has not been determined. Clinical correlation isessential. Performed By: #### L 500.2500, L100.0500 ####[facility] [address] [place], [address] ECRCL 9.02 ml/min Normal [facility] Comment on above: Performed By: #### L 500.2500, L100.0500 ####[facility] [address] [place], [address] EST GFR - AA 11 mL/min Low >60 [facility] Comment on above: Result Comment: Afri can Senegalese GFR Calc Performed By: #### L 500.2500, L100.0500 ####[facility] [address] [place], [address] GAP 7 Normal 5-15 [facility] Comment on above: Performed By: #### L 500.2500, L100.0500 ####[facility] [address] [place], [address] GFR/1.73 sq M.predicted among non-blacks MDRD (S/P/Bld) [Vol rate/Area] 9 mL/min/{1.73_m2} Low >60 [facility] Comment on above: Result Comment: Non- GFR Calc Performed By: #### L 500.2500, L100.0500 ####[facility] [address] [place], [address] Glucose [Mass/Vol] 198 mg/dL High 74-106 [facility] Comment on above: Result Comment: Fast ing Glucose result greater than or equal to 126 mg/dLsuggests DIABETES MELLITUS per A.D.A. criteria. Performed By: #### L 500.2500, L100.0500 ####[facility] [address] [place], [address] Potassium [Moles/Vol] 4.9 mmol/L Normal 3.5-5.1 [facility] Comment on above: Performed By: #### L 500.2500, L100.0500 ####[facility] [address] [place], [address] Sodium [Moles/Vol] 133 mmol/L Low 136-145 [facility] Comment on above: Performed By: #### L 500.2500, L100.0500 ####[facility] [address] [place], [address] Urea nitrogen [Mass/Vol] 75 mg/dL High 7-18 [facility] Comment on above: Performed By: #### L 500.2500, L100.0500 ####[facility] [address] [place], [address] Bedside Glucoseon 05-08-2024 FINGERSTICK GLU 154 mg/dL High 74-106 [facility] Comment on above: Result Comment: FANG GEMENT OF PATIENT CARE PER NURSING PROTOCOL Performed By: #### L 501.080 ####[facility] [address] [place], [address] FINGERSTICK GLU 212 mg/dL High 74-106 [facility] Comment on above: Result Comment: FANG GEMENT OF PATIENT CARE PER NURSING PROTOCOL Performed By: #### L 501.080 ####[facility] [address] [place], [address] FINGERSTICK GLU 194 mg/dL High 74-106 [facility] Comment on above: Result Comment: FANG GEMENT OF PATIENT CARE PER NURSING PROTOCOL Performed By: #### L 501.080 ####[facility] [address] [place], [address] CBC-Complete Blood Cnt No Di ffon 05-08-2024 Erythrocyte distribution width (RBC) [Ratio] 14.9 % High 11.6-14.6 [facility] Comment on above: Performed By: #### L 500.2500, L100.0500 ####[facility] [address] [place], [address] Hematocrit (Bld) [Volume fraction] 29.5 % Low 40-54 [facility] Comment on above: Performed By: #### L 500.2500, L100.0500 ####[facility] [address] [place], [address] Hemoglobin (Bld) [Mass/Vol] 8.8 g/dL Low 13.0-16.5 [facility] Comment on above: Performed By: #### L 500.2500, L100.0500 ####[facility] [address] [place], [address] MCH (RBC) [Entitic mass] 28.9 pg Normal 27.0-32.0 [facility] Comment on above: Performed By: #### L 500.2500, L100.0500 ####[facility] [address] [place], [address] MCHC (RBC) [Mass/Vol] 29.8 g/dL Low 32-36 [facility] Comment on above: Performed By: #### L 500.2500, L100.0500 ####[facility] [address] [place], [address] MCV (RBC) [Entitic vol] 97.0 fL High 80-94 [facility] Comment on above: Performed By: #### L 500.2500, L100.0500 ####[facility] [address] [place], [address] Platelet mean volume (Bld) [Entitic vol] 11.3 fL Normal 6.2-12.0 [facility] Comment on above: Performed By: #### L 500.2500, L100.0500 ####[facility] [address] [place], [address] Platelets (Bld) [#/Vol] 210 10*3/uL Normal 150-450 [facility] Comment on above: Performed By: #### L 500.2500, L100.0500 ####[facility] [address] [place], [address] RBC (Bld) [#/Vol] 3.04 10*6/uL Low 4.6-6.2 [facility] Comment on above: Performed By: #### L 500.2500, L100.0500 ####[facility] [address] [place], [address] RDW SD 52.8 fl High 35.1-43.9 [facility] Comment on above: Performed By: #### L 500.2500, L100.0500 ####[facility] [address] [place], [address] WBC (Bld) [#/Vol] 9.7 10*3/uL Normal 4.4-11.0 [facility] Comment on above: Performed By: #### L 500.2500, L100.0500 ####[facility] [address] [place], [address] Consultation - Infectious Dx on 05-08-2024 Consultation - Infectious Dx Normal [facility] Gram Stainon 05-08-2024 GS COLLECTED IN OR RIGH T HALLUX AND 1ST METATARSAL Gram Stain Rare White Blood Cells Rare Gram positive cocci No Epithelial cells Normal [facility] Comment on above: Performed By: #### M 100.2000, M100.3000, M100.4001 ####[facility] [address] [place], [address] Basic Metabolic Profile (BMP )on 05-07-2024 BUN/CRE 12.3 RATIO Normal 10-20 [facility] Comment on above: Performed By: #### L 500.2500, L100.0500 ####[facility] [address] [place], [address] CA,Total 8.7 mg/dL Normal 8.5-10.1 [facility] Comment on above: Performed By: #### L 500.2500, L100.0500 ####[facility] [address] [place], [address] Chloride [Moles/Vol] 100 mmol/L Normal 98-107 [facility] Comment on above: Performed By: #### L 500.2500, L100.0500 ####[facility] [address] [place], [address] CO2 [Moles/Vol] 28.0 mmol/L Normal 21.0-32.0 [facility] Comment on above: Performed By: #### L 500.2500, L100.0500 ####[facility] [address] [place], [address] Creatinine [Mass/Vol] 5.45 mg/dL High 0.70-1.30 [facility] Comment on above: Result Comment: The validity of the calculated GFR GFRAA in patients over70 years has not been determined. Clinical correlation isessential. Performed By: #### L 500.2500, L100.0500 ####[facility] [address] [place], [address] ECRCL 10.36 ml/min Normal [facility] Comment on above: Performed By: #### L 500.2500, L100.0500 ####[facility] [address] [place], [address] EST GFR - AA 13 mL/min Low >60 [facility] Comment on above: Result Comment: Afri can Senegalese GFR Calc Performed By: #### L 500.2500, L100.0500 ####[facility] [address] [place], [address] GAP 6 Normal 5-15 [facility] Comment on above: Performed By: #### L 500.2500, L100.0500 ####[facility] [address] [place], [address] GFR/1.73 sq M.predicted among non-blacks MDRD (S/P/Bld) [Vol rate/Area] 11 mL/min/{1.73_m2} Low >60 [facility] Comment on above: Result Comment: Non- GFR Calc Performed By: #### L 500.2500, L100.0500 ####[facility] [address] [place], [address] Glucose [Mass/Vol] 131 mg/dL High 74-106 [facility] Comment on above: Result Comment: Fast ing Glucose result greater than or equal to 126 mg/dLsuggests DIABETES MELLITUS per A.D.A. criteria. Performed By: #### L 500.2500, L100.0500 ####[facility] [address] [place], [address] Potassium [Moles/Vol] 4.6 mmol/L Normal 3.5-5.1 [facility] Comment on above: Performed By: #### L 500.2500, L100.0500 ####[facility] [address] [place], [address] Sodium [Moles/Vol] 134 mmol/L Low 136-145 [facility] Comment on above: Performed By: #### L 500.2500, L100.0500 ####[facility] [address] [place], [address] Urea nitrogen [Mass/Vol] 67 mg/dL High 7-18 [facility] Comment on above: Performed By: #### L 500.2500, L100.0500 ####[facility] [address] [place], [address] Bedside Glucoseon 05-07-2024 FINGERSTICK GLU 148 mg/dL High 74-106 [facility] Comment on above: Result Comment: FANG GEMENT OF PATIENT CARE PER NURSING PROTOCOL Performed By: #### L 501.080 ####[facility] [address] [place], [address] FINGERSTICK GLU 102 mg/dL Normal 74-106 [facility] Comment on above: Result Comment: FANG GEMENT OF PATIENT CARE PER NURSING PROTOCOL Performed By: #### L 501.080 ####[facility] [address] [place], [address] FINGERSTICK GLU 120 mg/dL High 74-106 [facility] Comment on above: Result Comment: FANG GEMENT OF PATIENT CARE PER NURSING PROTOCOL Performed By: #### L 501.080 ####[facility] [address] [place], [address] CBC-Complete Blood Cnt No Tomasa lima 05-07-2024 Erythrocyte distribution width (RBC) [Ratio] 15.0 % High 11.6-14.6 [facility] Comment on above: Performed By: #### L 500.2500, L100.0500 ####[facility] [address] [place], [address] Hematocrit (Bld) [Volume fraction] 29.8 % Low 40-54 [facility] Comment on above: Performed By: #### L 500.2500, L100.0500 ####[facility] [address] [place], [address] Hemoglobin (Bld) [Mass/Vol] 9.1 g/dL Low 13.0-16.5 [facility] Comment on above: Performed By: #### L 500.2500, L100.0500 ####[facility] [address] [place], [address] MCH (RBC) [Entitic mass] 29.6 pg Normal 27.0-32.0 [facility] Comment on above: Performed By: #### L 500.2500, L100.0500 ####[facility] [address] [place], [address] MCHC (RBC) [Mass/Vol] 30.5 g/dL Low 32-36 [facility] Comment on above: Performed By: #### L 500.2500, L100.0500 ####[facility] [address] [place], [address] MCV (RBC) [Entitic vol] 97.1 fL High 80-94 [facility] Comment on above: Performed By: #### L 500.2500, L100.0500 ####[facility] [address] [place], [address] Platelet mean volume (Bld) [Entitic vol] 11.0 fL Normal 6.2-12.0 [facility] Comment on above: Performed By: #### L 500.2500, L100.0500 ####[facility] [address] [place], [address] Platelets (Bld) [#/Vol] 223 10*3/uL Normal 150-450 [facility] Comment on above: Performed By: #### L 500.2500, L100.0500 ####[facility] [address] [place], [address] RBC (Bld) [#/Vol] 3.07 10*6/uL Low 4.6-6.2 [facility] Comment on above: Performed By: #### L 500.2500, L100.0500 ####[facility] [address] [place], [address] RDW SD 53.1 fl High 35.1-43.9 [facility] Comment on above: Performed By: #### L 500.2500, L100.0500 ####[facility] [address] [place], [address] WBC (Bld) [#/Vol] 8.1 10*3/uL Normal 4.4-11.0 [facility] Comment on above: Performed By: #### L 500.2500, L100.0500 ####[facility] [address] [place], [address] Decalcification bone/plaqueo n 05-07-2024 Decalcification bone/plaque Normal [facility] Comment on above: Performed By: #### P DEC ####[facility] [address] [place], [address] Foot 2 Viewson 05-07-2024 Foot 2 Views Normal [facility] MR/POSTOP.ANEon 05-07-2024 MR/POSTOP.ANE Normal [facility] MR/HEBPRIET1dj 05-07-2024 MR/POSTOPAN2 Normal [facility] Operative Reporton Operative Report Normal [facility] Basic Metabolic Profile (BMP )on 05-06-2024 BUN/CRE 11.3 RATIO Normal 10-20 [facility] Comment on above: Performed By: #### L 500.2500, L100.0500 ####[facility] [address] [place], [address] CA,Total 8.9 mg/dL Normal 8.5-10.1 [facility] Comment on above: Performed By: #### L 500.2500, L100.0500 ####[facility] [address] [place], [address] Chloride [Moles/Vol] 99 mmol/L Normal 98-107 [facility] Comment on above: Performed By: #### L 500.2500, L100.0500 ####[facility] [address] [place], [address] CO2 [Moles/Vol] 27.0 mmol/L Normal 21.0-32.0 [facility] Comment on above: Performed By: #### L 500.2500, L100.0500 ####[facility] [address] [place], [address] Creatinine [Mass/Vol] 4.26 mg/dL High 0.70-1.30 [facility] Comment on above: Result Comment: The validity of the calculated GFR GFRAA in patients over70 years has not been determined. Clinical correlation isessential. Performed By: #### L 500.2500, L100.0500 ####[facility] [address] [place], [address] ECRCL 13.25 ml/min Normal [facility] Comment on above: Performed By: #### L 500.2500, L100.0500 ####[facility] [address] [place], [address] EST GFR - AA 17 mL/min Low >60 [facility] Comment on above: Result Comment: Afri can Senegalese GFR Calc Performed By: #### L 500.2500, L100.0500 ####[facility] [address] [place], [address] GAP 7 Normal 5-15 [facility] Comment on above: Performed By: #### L 500.2500, L100.0500 ####[facility] [address] [place], [address] GFR/1.73 sq M.predicted among non-blacks MDRD (S/P/Bld) [Vol rate/Area] 14 mL/min/{1.73_m2} Low >60 [facility] Comment on above: Result Comment: Non- GFR Calc Performed By: #### L 500.2500, L100.0500 ####[facility] [address] [place], [address] Glucose [Mass/Vol] 181 mg/dL High 74-106 [facility] Comment on above: Result Comment: Fast ing Glucose result greater than or equal to 126 mg/dLsuggests DIABETES MELLITUS per A.D.A. criteria. Performed By: #### L 500.2500, L100.0500 ####[facility] [address] [place], [address] Potassium [Moles/Vol] 4.3 mmol/L Normal 3.5-5.1 [facility] Comment on above: Performed By: #### L 500.2500, L100.0500 ####[facility] [address] [place], [address] Sodium [Moles/Vol] 133 mmol/L Low 136-145 [facility] Comment on above: Performed By: #### L 500.2500, L100.0500 ####[facility] [address] [place], [address] Urea nitrogen [Mass/Vol] 48 mg/dL High 7-18 [facility] Comment on above: Performed By: #### L 500.2500, L100.0500 ####[facility] [address] [place], [address] Bedside Glucoseon 05-06-2024 FINGERSTICK GLU 215 mg/dL High 74-106 [facility] Comment on above: Result Comment: FANG GEMENT OF PATIENT CARE PER NURSING PROTOCOL Performed By: #### L 501.080 ####[facility] [address] [place], [address] FINGERSTICK GLU 142 mg/dL High 74-106 [facility] Comment on above: Result Comment: FANG GEMENT OF PATIENT CARE PER NURSING PROTOCOL Performed By: #### L 501.080 ####[facility] [address] [place], [address] FINGERSTICK GLU 228 mg/dL High 74-106 [facility] Comment on above: Result Comment: FANG GEMENT OF PATIENT CARE PER NURSING PROTOCOL Performed By: #### L 501.080 ####[facility] [address] [place], [address] CBC-Complete Blood Cnt No Di ffon 05-06-2024 Erythrocyte distribution width (RBC) [Ratio] 15.1 % High 11.6-14.6 [facility] Comment on above: Performed By: #### L 500.2500, L100.0500 ####[facility] [address] [place], [address] Hematocrit (Bld) [Volume fraction] 32.3 % Low 40-54 [facility] Comment on above: Performed By: #### L 500.2500, L100.0500 ####[facility] [address] [place], [address] Hemoglobin (Bld) [Mass/Vol] 9.7 g/dL Low 13.0-16.5 [facility] Comment on above: Performed By: #### L 500.2500, L100.0500 ####[facility] [address] [place], [address] MCH (RBC) [Entitic mass] 29.2 pg Normal 27.0-32.0 [facility] Comment on above: Performed By: #### L 500.2500, L100.0500 ####[facility] [address] [place], [address] MCHC (RBC) [Mass/Vol] 30.0 g/dL Low 32-36 [facility] Comment on above: Performed By: #### L 500.2500, L100.0500 ####[facility] [address] [place], [address] MCV (RBC) [Entitic vol] 97.3 fL High 80-94 [facility] Comment on above: Performed By: #### L 500.2500, L100.0500 ####[facility] [address] [place], [address] Platelet mean volume (Bld) [Entitic vol] 11.1 fL Normal 6.2-12.0 [facility] Comment on above: Performed By: #### L 500.2500, L100.0500 ####[facility] [address] [place], [address] Platelets (Bld) [#/Vol] 238 10*3/uL Normal 150-450 [facility] Comment on above: Performed By: #### L 500.2500, L100.0500 ####[facility] [address] [place], [address] RBC (Bld) [#/Vol] 3.32 10*6/uL Low 4.6-6.2 [facility] Comment on above: Performed By: #### L 500.2500, L100.0500 ####[facility] [address] [place], [address] RDW SD 54.1 fl High 35.1-43.9 [facility] Comment on above: Performed By: #### L 500.2500, L100.0500 ####[facility] [address] [place], [address] WBC (Bld) [#/Vol] 8.5 10*3/uL Normal 4.4-11.0 [facility] Comment on above: Performed By: #### L 500.2500, L100.0500 ####[facility] [address] [place], [address] Basic Metabolic Profile (BMP )on 05-05-2024 BUN/CRE 9.2 RATIO Low 10-20 [facility] Comment on above: Performed By: #### L 100.0100, L500.2500 ####[facility] [address] [place], [address] CA,Total 8.9 mg/dL Normal 8.5-10.1 [facility] Comment on above: Performed By: #### L 100.0100, L500.2500 ####[facility] [address] [place], [address] Chloride [Moles/Vol] 95 mmol/L Low 98-107 [facility] Comment on above: Performed By: #### L 100.0100, L500.2500 ####[facility] [address] [place], [address] CO2 [Moles/Vol] 30.0 mmol/L Normal 21.0-32.0 [facility] Comment on above: Performed By: #### L 100.0100, L500.2500 ####[facility] [address] [place], [address] Creatinine [Mass/Vol] 5.32 mg/dL High 0.70-1.30 [facility] Comment on above: Result Comment: The validity of the calculated GFR GFRAA in patients over70 years has not been determined. Clinical correlation isessential. Performed By: #### L 100.0100, L500.2500 ####[facility] [address] [place], [address] ECRCL 10.63 ml/min Normal [facility] Comment on above: Performed By: #### L 100.0100, L500.2500 ####[facility] [address] [place], [address] EST GFR - AA 13 mL/min Low >60 [facility] Comment on above: Result Comment: Afri can Senegalese GFR Calc Performed By: #### L 100.0100, L500.2500 ####[facility] [address] [place], [address] GAP 11 Normal 5-15 [facility] Comment on above: Performed By: #### L 100.0100, L500.2500 ####[facility] [address] [place], [address] GFR/1.73 sq M.predicted among non-blacks MDRD (S/P/Bld) [Vol rate/Area] 11 mL/min/{1.73_m2} Low >60 [facility] Comment on above: Result Comment: Non- GFR Calc Performed By: #### L 100.0100, L500.2500 ####[facility] [address] [place], [address] Glucose [Mass/Vol] 111 mg/dL High 74-106 [facility] Comment on above: Result Comment: Fast ing Glucose result from 100 to 125 mg/dLsuggests IMPAIRED HOMEOSTASIS per A.D.A. criteria. Performed By: #### L 100.0100, L500.2500 ####[facility] [address] [place], [address] Potassium [Moles/Vol] 3.9 mmol/L Normal 3.5-5.1 [facility] Comment on above: Performed By: #### L 100.0100, L500.2500 ####[facility] [address] [place], [address] Sodium [Moles/Vol] 135 mmol/L Low 136-145 [facility] Comment on above: Performed By: #### L 100.0100, L500.2500 ####[facility] [address] [place], [address] Urea nitrogen [Mass/Vol] 49 mg/dL High 7-18 [facility] Comment on above: Performed By: #### L 100.0100, L500.2500 ####[facility] [address] [place], [address] Bedside Glucoseon 05-05-2024 FINGERSTICK GLU 155 mg/dL High 74-106 [facility] Comment on above: Result Comment: FANG GEMENT OF PATIENT CARE PER NURSING PROTOCOL Performed By: #### L 501.080 ####[facility] [address] [place], [address] FINGERSTICK GLU 210 mg/dL High 74-106 [facility] Comment on above: Result Comment: FANG GEMENT OF PATIENT CARE PER NURSING PROTOCOL Performed By: #### L 501.080 ####[facility] [address], [address] FINGERSTICK GLU 202 mg/dL High 74-106 [facility] Comment on above: Result Comment: FANG GEMENT OF PATIENT CARE PER NURSING PROTOCOL Performed By: #### L 501.080 ####[facility] [address] [place], [address] FINGERSTICK GLU 136 mg/dL High 74-106 [facility] Comment on above: Result Comment: FANG GEMENT OF PATIENT CARE PER NURSING PROTOCOL Performed By: #### L 501.080 ####[facility] [address] [place], [address] FINGERSTICK GLU 171 mg/dL High 74-106 [facility] Comment on above: Result Comment: FANG VAZQUEZ OF PATIENT CARE PER NURSING PROTOCOL Performed By: #### L 501.080 ####[facility] [address] [place], [address] CBC W/Diff, Automatedon 12- Absolute Lymph 2.35 X10 3/uL Normal 0.83-4.51 [facility] Comment on above: Performed By: #### L 100.0100, L500.2500 ####[facility] [address] [place], [address] Absolute Neut 6.8 X10 3/uL Normal 2.0-7.7 [facility] Comment on above: Performed By: #### L 100.0100, L500.2500 ####[facility] [address] [place], [address] Basophils/100 WBC (Bld) 0.8 % Normal 0-1 [facility] Comment on above: Performed By: #### L 100.0100, L500.2500 ####[facility] [address] [place], [address] Eosinophils/100 WBC (Bld) 3.1 % Normal 0-5 [facility] Comment on above: Performed By: #### L 100.0100, L500.2500 ####[facility] [address] [place], [address] Erythrocyte distribution width (RBC) [Ratio] 15.1 % High 11.6-14.6 [facility] Comment on above: Performed By: #### L 100.0100, L500.2500 ####[facility] [address] [place], [address] Hematocrit (Bld) [Volume fraction] 31.1 % Low 40-54 [facility] Comment on above: Performed By: #### L 100.0100, L500.2500 ####[facility] [address] [place], [address] Hemoglobin (Bld) [Mass/Vol] 9.4 g/dL Low 13.0-16.5 [facility] Comment on above: Performed By: #### L 100.0100, L500.2500 ####[facility] [address] [place], [address] IG% 0.600 Normal 0.0-0.9 [facility] Comment on above: Result Comment: IG% - Immature Granulocytes (promyelocytes, myelocytes andmetamyelocytes) > 1% indicates that a LEFT SHIFT is Present. Performed By: #### L 100.0100, L500.2500 ####[facility] [address] [place], [address] Lymphocytes/100 WBC (Bld) 22.1 % Normal 19-41 [facility] Comment on above: Performed By: #### L 100.0100, L500.2500 ####[facility] [address] [place], [address] MCH (RBC) [Entitic mass] 28.8 pg Normal 27.0-32.0 [facility] Comment on above: Performed By: #### L 100.0100, L500.2500 ####[facility] [address] [place], [address] MCHC (RBC) [Mass/Vol] 30.2 g/dL Low 32-36 [facility] Comment on above: Performed By: #### L 100.0100, L500.2500 ####[facility] [address] [place], [address] MCV (RBC) [Entitic vol] 95.4 fL High 80-94 [facility] Comment on above: Performed By: #### L 100.0100, L500.2500 ####[facility] [address] [place], [address] Monocytes/100 WBC (Bld) 9.2 % Normal 0-10 [facility] Comment on above: Performed By: #### L 100.0100, L500.2500 ####[facility] [address] [place], [address] Neutrophils/100 WBC (Bld) 64.2 % Normal 47-70 [facility] Comment on above: Performed By: #### L 100.0100, L500.2500 ####[facility] [address] [place], [address] Nucleated RBC (Bld) [#/Vol] 0 10*3/uL Normal 0-5 [facility] Comment on above: Performed By: #### L 100.0100, L500.2500 ####[facility] [address] [place], [address] Platelet mean volume (Bld) [Entitic vol] 11.2 fL Normal 6.2-12.0 [facility] Comment on above: Performed By: #### L 100.0100, L500.2500 ####[facility] [address] [place], [address] Platelets (Bld) [#/Vol] 263 10*3/uL Normal 150-450 [facility] Comment on above: Performed By: #### L 100.0100, L500.2500 ####[facility] [address] [place], [address] RBC (Bld) [#/Vol] 3.26 10*6/uL Low 4.6-6.2 [facility] Comment on above: Performed By: #### L 100.0100, L500.2500 ####[facility] [address] [place], [address] RDW SD 52.6 fl High 35.1-43.9 [facility] Comment on above: Performed By: #### L 100.0100, L500.2500 ####[facility] [address] [place], [address] WBC (Bld) [#/Vol] 10.6 10*3/uL Normal 4.4-11.0 [facility] Comment on above: Performed By: #### L 100.0100, L500.2500 ####[facility] [address] [place], [address] Consultation - Nephrologyon 05-05-2024 Consultation - Nephrology Normal [facility] 12 Lead EKGon 05-04-2024 12 Lead EKG Normal [facility] Ankle Brachial Indexon 05-04 Ankle Brachial Index Normal [facility] Basic Metabolic Profile (BMP )on 05-04-2024 BUN/CRE 6.8 RATIO Low 10-20 [facility] Comment on above: Performed By: #### L 100.0100, L501.6710, L101.9900, L500.2500 ####[facility] [address] [place], [address] CA,Total 9.4 mg/dL Normal 8.5-10.1 [facility] Comment on above: Performed By: #### L 100.0100, L501.6710, L101.9900, L500.2500 ####[facility] [address] [place], [address] Chloride [Moles/Vol] 94 mmol/L Low 98-107 [facility] Comment on above: Performed By: #### L 100.0100, L501.6710, L101.9900, L500.2500 ####[facility] [address] [place], [address] CO2 [Moles/Vol] 31.0 mmol/L Normal 21.0-32.0 [facility] Comment on above: Performed By: #### L 100.0100, L501.6710, L101.9900, L500.2500 ####[facility] [address] [place], [address] Creatinine [Mass/Vol] 4.58 mg/dL High 0.70-1.30 [facility] Comment on above: Result Comment: The validity of the calculated GFR GFRAA in patients over70 years has not been determined. Clinical correlation isessential. Performed By: #### L 100.0100, L501.6710, L101.9900, L500.2500 ####[facility] [address] [place], [address] ECRCL 13.00 ml/min Normal [facility] Comment on above: Performed By: #### L 100.0100, L501.6710, L101.9900, L500.2500 ####[facility] [address] [place], [address] EST GFR - AA 16 mL/min Low >60 [facility] Comment on above: Result Comment: Afri can Senegalese GFR Calc Performed By: #### L 100.0100, L501.6710, L101.9900, L500.2500 ####[facility] [address] [place], [address] GAP 7 Normal 5-15 [facility] Comment on above: Performed By: #### L 100.0100, L501.6710, L101.9900, L500.2500 ####[facility] [address] [place], [address] GFR/1.73 sq M.predicted among non-blacks MDRD (S/P/Bld) [Vol rate/Area] 13 mL/min/{1.73_m2} Low >60 [facility] Comment on above: Result Comment: Non- GFR Calc Performed By: #### L 100.0100, L501.6710, L101.9900, L500.2500 ####[facility] [address] [place], [address] Glucose [Mass/Vol] 297 mg/dL High 74-106 [facility] Comment on above: Result Comment: Gluc ose result greater than or equal to 200 mg/dLsuggests DIABETES MELLITUS per A.D.A. criteria. Performed By: #### L 100.0100, L501.6710, L101.9900, L500.2500 ####[facility] [address] [place], [address] Potassium [Moles/Vol] 3.7 mmol/L Normal 3.5-5.1 [facility] Comment on above: Performed By: #### L 100.0100, L501.6710, L101.9900, L500.2500 ####[facility] [address] [place], [address] Sodium [Moles/Vol] 133 mmol/L Low 136-145 [facility] Comment on above: Performed By: #### L 100.0100, L501.6710, L101.9900, L500.2500 ####[facility] [address] [place], [address] Urea nitrogen [Mass/Vol] 31 mg/dL High 7-18 [facility] Comment on above: Performed By: #### L 100.0100, L501.6710, L101.9900, L500.2500 ####[facility] [address] [place], [address] Bedside Glucoseon 05-04-2024 FINGERSTICK GLU 342 mg/dL High 74-106 [facility] Comment on above: Result Comment: FANG VAZQUEZ OF PATIENT CARE PER NURSING PROTOCOL Performed By: #### L 501.080 ####[facility] [address] [place], [address] CBC W/Diff, Automatedon 04-22 Absolute Lymph 2.08 X10 3/uL Normal 0.83-4.51 [facility] Comment on above: Performed By: #### L 100.0100, L501.6710, L101.9900, L500.2500 ####[facility] [address] [place], [address] Absolute Neut 5.8 X10 3/uL Normal 2.0-7.7 [facility] Comment on above: Performed By: #### L 100.0100, L501.6710, L101.9900, L500.2500 ####[facility] [address] [place], [address] Basophils/100 WBC (Bld) 1.0 % Normal 0-1 [facility] Comment on above: Performed By: #### L 100.0100, L501.6710, L101.9900, L500.2500 ####[facility] [address] [place], [address] Eosinophils/100 WBC (Bld) 2.4 % Normal 0-5 [facility] Comment on above: Performed By: #### L 100.0100, L501.6710, L101.9900, L500.2500 ####[facility] [address] [place], [address] Erythrocyte distribution width (RBC) [Ratio] 15.4 % High 11.6-14.6 [facility] Comment on above: Performed By: #### L 100.0100, L501.6710, L101.9900, L500.2500 ####[facility] [address] [place], [address] Hematocrit (Bld) [Volume fraction] 36.7 % Low 40-54 [facility] Comment on above: Performed By: #### L 100.0100, L501.6710, L101.9900, L500.2500 ####[facility] [address] [place], [address] Hemoglobin (Bld) [Mass/Vol] 11.3 g/dL Low 13.0-16.5 [facility] Comment on above: Performed By: #### L 100.0100, L501.6710, L101.9900, L500.2500 ####[facility] [address] [place], [address] IG% 0.800 Normal 0.0-0.9 [facility] Comment on above: Result Comment: IG% - Immature Granulocytes (promyelocytes, myelocytes andmetamyelocytes) > 1% indicates that a LEFT SHIFT is Present. Performed By: #### L 100.0100, L501.6710, L101.9900, L500.2500 ####[facility] [address] [place], [address] Lymphocytes/100 WBC (Bld) 22.5 % Normal 19-41 [facility] Comment on above: Performed By: #### L 100.0100, L501.6710, L101.9900, L500.2500 ####[facility] [address] [place], [address] MCH (RBC) [Entitic mass] 29.3 pg Normal 27.0-32.0 [facility] Comment on above: Performed By: #### L 100.0100, L501.6710, L101.9900, L500.2500 ####[facility] [address] [place], [address] MCHC (RBC) [Mass/Vol] 30.8 g/dL Low 32-36 [facility] Comment on above: Performed By: #### L 100.0100, L501.6710, L101.9900, L500.2500 ####[facility] [address] [place], [address] MCV (RBC) [Entitic vol] 95.1 fL High 80-94 [facility] Comment on above: Performed By: #### L 100.0100, L501.6710, L101.9900, L500.2500 ####[facility] [address] [place], [address] Monocytes/100 WBC (Bld) 10.2 % High 0-10 [facility] Comment on above: Performed By: #### L 100.0100, L501.6710, L101.9900, L500.2500 ####[facility] [address] [place], [address] Neutrophils/100 WBC (Bld) 63.1 % Normal 47-70 [facility] Comment on above: Performed By: #### L 100.0100, L501.6710, L101.9900, L500.2500 ####[facility] [address] [place], [address] Nucleated RBC (Bld) [#/Vol] 0 10*3/uL Normal 0-5 [facility] Comment on above: Performed By: #### L 100.0100, L501.6710, L101.9900, L500.2500 ####[facility] [address] [place], [address] Platelet mean volume (Bld) [Entitic vol] 11.4 fL Normal 6.2-12.0 [facility] Comment on above: Performed By: #### L 100.0100, L501.6710, L101.9900, L500.2500 ####[facility] [address] [place], [address] Platelets (Bld) [#/Vol] 288 10*3/uL Normal 150-450 [facility] Comment on above: Performed By: #### L 100.0100, L501.6710, L101.9900, L500.2500 ####[facility] [address] [place], [address] RBC (Bld) [#/Vol] 3.86 10*6/uL Low 4.6-6.2 [facility] Comment on above: Performed By: #### L 100.0100, L501.6710, L101.9900, L500.2500 ####[facility] [address] [place], [address] RDW SD 53.0 fl High 35.1-43.9 [facility] Comment on above: Performed By: #### L 100.0100, L501.6710, L101.9900, L500.2500 ####[facility] [address] [place], [address] WBC (Bld) [#/Vol] 9.2 10*3/uL Normal 4.4-11.0 [facility] Comment on above: Performed By: #### L 100.0100, L501.6710, L101.9900, L500.2500 ####[facility] [address] [place], [address] CRPon 05-04-2024 C-REACTIVE PROT 72.90 mg/L High 0.0-3.0 [facility] Comment on above: Result Comment: C-Re active Protein (CRP) provides useful information for thediagnosis, therapy and monitoring of inflammatory processesand associated diseases. For the evaluation of Relative Riskfor Cardiovascular Disease, a High Sensitivity CRP (HSCRP)should be ordered. Performed By: #### L 100.0100, L501.6710, L101.9900, L500.2500 ####[facility] [address] [place], [address] Consultation - Surgicalon Consultation - Surgical Normal [facility] Emergency Department Summary on 05-04-2024 Emergency Department Summary Normal [facility] Erythrocyte Sed Rateon 05-04 SED RATE 81 mm/hr High 0-20 [facility] Comment on above: Performed By: #### L 100.0100, L501.6710, L101.9900, L500.2500 ####[facility] [address] [place], [address] Foot min 3 Viewson 4 Foot min 3 Views Normal [facility] H AND P Exam - Hospitaliston 05-04-2024 H&P Exam - Hospitalist Normal [facility] US Art Duplex Unilat Lower E xton 05-04-2024 US Art Duplex Unilat Lower Ext Normal [facility] Basic Metabolic Profile (BMP )on 05-02-2024 BUN/CRE 6.9 RATIO Low 10-20 [facility] Comment on above: Order Comment: 107.2 Performed By: #### L 100.0500, L500.2500 ####[facility] [address] [place], [address] CA,Total 8.8 mg/dL Normal 8.5-10.1 [facility] Comment on above: Order Comment: 107.2 Performed By: #### L 100.0500, L500.2500 ####[facility] [address] [place], [address] Chloride [Moles/Vol] 96 mmol/L Low 98-107 [facility] Comment on above: Order Comment: 107.2 Performed By: #### L 100.0500, L500.2500 ####[facility] [address] [place], [address] CO2 [Moles/Vol] 30.0 mmol/L Normal 21.0-32.0 [facility] Comment on above: Order Comment: 107.2 Performed By: #### L 100.0500, L500.2500 ####[facility] [address] [place], [address] Creatinine [Mass/Vol] 4.34 mg/dL High 0.70-1.30 [facility] Comment on above: Order Comment: 107.2 Result Comment: The validity of the calculated GFR GFRAA in patients over70 years has not been determined. Clinical correlation isessential. Performed By: #### L 100.0500, L500.2500 ####[facility] [address] [place], [address] EST GFR - AA 17 mL/min Low >60 [facility] Comment on above: Order Comment: 107.2 Result Comment: Afri can Senegalese GFR Calc Performed By: #### L 100.0500, L500.2500 ####[facility] [address] [place], [address] GAP 7 Normal 5-15 [facility] Comment on above: Order Comment: 107.2 Performed By: #### L 100.0500, L500.2500 ####[facility] [address] [place], [address] GFR/1.73 sq M.predicted among non-blacks MDRD (S/P/Bld) [Vol rate/Area] 14 mL/min/{1.73_m2} Low >60 [facility] Comment on above: Order Comment: 107.2 Result Comment: Non- GFR Calc Performed By: #### L 100.0500, L500.2500 ####[facility] [address] [place], [address] Glucose [Mass/Vol] 138 mg/dL High 74-106 [facility] Comment on above: Order Comment: 107.2 Result Comment: Fast ing Glucose result greater than or equal to 126 mg/dLsuggests DIABETES MELLITUS per A.D.A. criteria. Performed By: #### L 100.0500, L500.2500 ####[facility] [address] [place], [address] Potassium [Moles/Vol] 3.6 mmol/L Normal 3.5-5.1 [facility] Comment on above: Order Comment: 107.2 Performed By: #### L 100.0500, L500.2500 ####[facility] [address], [address] Sodium [Moles/Vol] 133 mmol/L Low 136-145 [facility] Comment on above: Order Comment: 107.2 Performed By: #### L 100.0500, L500.2500 ####[facility] [address] [place], [address] Urea nitrogen [Mass/Vol] 30 mg/dL High 7-18 [facility] Comment on above: Order Comment: 107.2 Performed By: #### L 100.0500, L500.2500 ####[facility] [address] [place], [address] CBC-Complete Blood Cnt No Di ffon 05-02-2024 Erythrocyte distribution width (RBC) [Ratio] 15.1 % High 11.6-14.6 [facility] Comment on above: Order Comment: 107.2 Performed By: #### L 100.0500, L500.2500 ####[facility] [address] [place], [address] Hematocrit (Bld) [Volume fraction] 29.9 % Low 40-54 [facility] Comment on above: Order Comment: 107.2 Performed By: #### L 100.0500, L500.2500 ####[facility] [address] [place], [address] Hemoglobin (Bld) [Mass/Vol] 9.6 g/dL Low 13.0-16.5 [facility] Comment on above: Order Comment: 107.2 Performed By: #### L 100.0500, L500.2500 ####[facility] [address] [place], [address] MCH (RBC) [Entitic mass] 30.2 pg Normal 27.0-32.0 [facility] Comment on above: Order Comment: 107.2 Performed By: #### L 100.0500, L500.2500 ####[facility] [address] [place], [address] MCHC (RBC) [Mass/Vol] 32.1 g/dL Normal 32-36 [facility] Comment on above: Order Comment: 107.2 Performed By: #### L 100.0500, L500.2500 ####[facility] [address] [place], [address] MCV (RBC) [Entitic vol] 94.0 fL Normal 80-94 [facility] Comment on above: Order Comment: 107.2 Performed By: #### L 100.0500, L500.2500 ####[facility] [address] [place], [address] Platelet mean volume (Bld) [Entitic vol] 10.9 fL Normal 6.2-12.0 [facility] Comment on above: Order Comment: 107.2 Performed By: #### L 100.0500, L500.2500 ####[facility] [address] [place], [address] Platelets (Bld) [#/Vol] 275 10*3/uL Normal 150-450 [facility] Comment on above: Order Comment: 107.2 Performed By: #### L 100.0500, L500.2500 ####[facility] [address] [place], [address] RBC (Bld) [#/Vol] 3.18 10*6/uL Low 4.6-6.2 [facility] Comment on above: Order Comment: 107.2 Performed By: #### L 100.0500, L500.2500 ####[facility] [address] [place], [address] RDW SD 52.3 fl High 35.1-43.9 [facility] Comment on above: Order Comment: 107.2 Performed By: #### L 100.0500, L500.2500 ####[facility] [address] [place], [address] WBC (Bld) [#/Vol] 8.9 10*3/uL Normal 4.4-11.0 [facility] Comment on above: Order Comment: 107.2 Performed By: #### L 100.0500, L500.2500 ####[facility] [address] [place], [address] Wound Cultureon 05-01-2024 WC Normal [facility] Comment on above: Performed By: #### M 100.4001, M100.2000, M100.3000 ####[facility] [address] [place], [address] Bedside Glucoseon 04-24-2024 FINGERSTICK GLU 202 mg/dL High [address] [place] [address] Comment on above: Result Comment: FANG GEMENT OF PATIENT CARE PER NURSING PROTOCOL Performed By: #### L 501.080 ####[facility] [address] [place], [address] FINGERSTICK GLU 139 mg/dL High [address] [place] [address] Comment on above: Result Comment: FANG GEMENT OF PATIENT CARE PER NURSING PROTOCOL Performed By: #### L 501.080 ####[facility] [address] [place], [address] FINGERSTICK GLU 153 mg/dL High [address] [place] [address] Comment on above: Result Comment: FANG GEMENT OF PATIENT CARE PER NURSING PROTOCOL Performed By: #### L 501.080 ####[facility] [address] [place], [address] FINGERSTICK GLU 250 mg/dL High [address] [place] [address] Comment on above: Result Comment: FANG GEMENT OF PATIENT CARE PER NURSING PROTOCOL Performed By: #### L 501.080 ####[facility] [address] [place], [address] Bedside Glucoseon 04-23-2024 FINGERSTICK GLU 311 mg/dL High [address] [place] [address] Comment on above: Result Comment: FANG GEMENT OF PATIENT CARE PER NURSING PROTOCOL Performed By: #### L 501.080 ####[facility] [address], [address] FINGERSTICK GLU 252 mg/dL High 74-106 [facility] Comment on above: Result Comment: FANG GEMENT OF PATIENT CARE PER NURSING PROTOCOL Performed By: #### L 501.080 ####[facility] [address], [address] FINGERSTICK GLU 173 mg/dL High 74-106 [facility] Comment on above: Result Comment: FANG GEMENT OF PATIENT CARE PER NURSING PROTOCOL Performed By: #### L 501.080 ####[facility] [address] [place], [address] CNPTOUTREACHon 04-23-2024 CNPTOUTREACH Normal [facility] Basic Metabolic Profile (BMP )on 04-22-2024 BUN/CRE 13.8 RATIO Normal 10-20 [facility] Comment on above: Performed By: #### L 100.0100, L500.2500 ####[facility] [address] [place], [address] CA,Total 8.5 mg/dL Normal 8.5-10.1 [facility] Comment on above: Performed By: #### L 100.0100, L500.2500 ####[facility] [address] [place], [address] Chloride [Moles/Vol] 100 mmol/L Normal 98-107 [facility] Comment on above: Performed By: #### L 100.0100, L500.2500 ####[facility] [address] [place], [address] CO2 [Moles/Vol] 25.0 mmol/L Normal 21.0-32.0 [facility] Comment on above: Performed By: #### L 100.0100, L500.2500 ####[facility] [address] [place], [address] Creatinine [Mass/Vol] 4.80 mg/dL High 0.70-1.30 [facility] Comment on above: Result Comment: The validity of the calculated GFR GFRAA in patients over70 years has not been determined. Clinical correlation isessential. Performed By: #### L 100.0100, L500.2500 ####[facility] [address] [place], [address] ECRCL 12.57 ml/min Normal [facility] Comment on above: Performed By: #### L 100.0100, L500.2500 ####[facility] [address] [place], [address] EST GFR - AA 15 mL/min Low >60 [facility] Comment on above: Result Comment: Afri can Senegalese GFR Calc Performed By: #### L 100.0100, L500.2500 ####[facility] [address] [place], [address] GAP 10 Normal 5-15 [facility] Comment on above: Performed By: #### L 100.0100, L500.2500 ####[facility] [address] [place], [address] GFR/1.73 sq M.predicted among non-blacks MDRD (S/P/Bld) [Vol rate/Area] 12 mL/min/{1.73_m2} Low >60 [facility] Comment on above: Result Comment: Non- GFR Calc Performed By: #### L 100.0100, L500.2500 ####[facility] [address] [place], [address] Glucose [Mass/Vol] 66 mg/dL Low 74-106 [facility] Comment on above: Performed By: #### L 100.0100, L500.2500 ####[facility] [address], [address] Potassium [Moles/Vol] 4.1 mmol/L Normal 3.5-5.1 [facility] Comment on above: Performed By: #### L 100.0100, L500.2500 ####[facility] [address] [place], [address] Sodium [Moles/Vol] 135 mmol/L Low 136-145 [facility] Comment on above: Performed By: #### L 100.0100, L500.2500 ####[facility] [address] [place], [address] Urea nitrogen [Mass/Vol] 66 mg/dL High 7-18 [facility] Comment on above: Performed By: #### L 100.0100, L500.2500 ####[facility] [address] [place], [address] Bedside Glucoseon 04-22-2024 FINGERSTICK GLU 290 mg/dL High 74-106 [facility] Comment on above: Result Comment: FANG GEMENT OF PATIENT CARE PER NURSING PROTOCOL Performed By: #### L 501.080 ####[facility] [address] [place], [address] FINGERSTICK GLU 220 mg/dL High 74-106 [facility] Comment on above: Result Comment: FANG GEMENT OF PATIENT CARE PER NURSING PROTOCOL Performed By: #### L 501.080 ####[facility] [address], [address] FINGERSTICK GLU 191 mg/dL High 74-106 [facility] Comment on above: Result Comment: FANG GEMENT OF PATIENT CARE PER NURSING PROTOCOL Performed By: #### L 501.080 ####[facility] [address] [place], [address] FINGERSTICK GLU 54 mg/dL Low 74-106 [facility] Comment on above: Result Comment: FANG GEMENT OF PATIENT CARE PER NURSING PROTOCOL Performed By: #### L 501.080 ####[facility] [address] [place], [address] FINGERSTICK GLU 72 mg/dL Low 74-106 [facility] Comment on above: Result Comment: FANG GEMENT OF PATIENT CARE PER NURSING PROTOCOL Performed By: #### L 501.080 ####[facility] [address] [place], [address] CBC W/Diff, Automatedon 12-0 -2023 Absolute Lymph 2.51 X10 3/uL Normal 0.83-4.51 [facility] Comment on above: Performed By: #### L 100.0100, L500.2500 ####[facility] [address] [place], [address] Absolute Neut 11.4 X10 3/uL High 2.0-7.7 [facility] Comment on above: Performed By: #### L 100.0100, L500.2500 ####[facility] [address] [place], [address] Basophils/100 WBC (Bld) 0.5 % Normal 0-1 [facility] Comment on above: Performed By: #### L 100.0100, L500.2500 ####[facility] [address] [place], [address] Eosinophils/100 WBC (Bld) 2.2 % Normal 0-5 [facility] Comment on above: Performed By: #### L 100.0100, L500.2500 ####[facility] [address] [place], [address] Erythrocyte distribution width (RBC) [Ratio] 14.9 % High 11.6-14.6 [facility] Comment on above: Performed By: #### L 100.0100, L500.2500 ####[facility] [address] [place], [address] Hematocrit (Bld) [Volume fraction] 30.1 % Low 40-54 [facility] Comment on above: Performed By: #### L 100.0100, L500.2500 ####[facility] [address] [place], [address] Hemoglobin (Bld) [Mass/Vol] 9.4 g/dL Low 13.0-16.5 [facility] Comment on above: Performed By: #### L 100.0100, L500.2500 ####[facility] [address] [place], [address] IG% 1.700 High 0.0-0.9 [facility] Comment on above: Result Comment: IG% - Immature Granulocytes (promyelocytes, myelocytes andmetamyelocytes) > 1% indicates that a LEFT SHIFT is Present. Performed By: #### L 100.0100, L500.2500 ####[facility] [address] [place], [address] Lymphocytes/100 WBC (Bld) 15.8 % Low 19-41 [facility] Comment on above: Performed By: #### L 100.0100, L500.2500 ####[facility] [address] [place], [address] MCH (RBC) [Entitic mass] 30.1 pg Normal 27.0-32.0 [facility] Comment on above: Performed By: #### L 100.0100, L500.2500 ####[facility] [address] [place], [address] MCHC (RBC) [Mass/Vol] 31.2 g/dL Low 32-36 [facility] Comment on above: Performed By: #### L 100.0100, L500.2500 ####[facility] [address] [place], [address] MCV (RBC) [Entitic vol] 96.5 fL High 80-94 [facility] Comment on above: Performed By: #### L 100.0100, L500.2500 ####[facility] [address] [place], [address] Monocytes/100 WBC (Bld) 8.5 % Normal 0-10 [facility] Comment on above: Performed By: #### L 100.0100, L500.2500 ####[facility] [address] [place], [address] Neutrophils/100 WBC (Bld) 71.3 % High 47-70 [facility] Comment on above: Performed By: #### L 100.0100, L500.2500 ####[facility] [address] [place], [address] Nucleated RBC (Bld) [#/Vol] 0 10*3/uL Normal 0-5 [facility] Comment on above: Performed By: #### L 100.0100, L500.2500 ####[facility] [address] [place], [address] Platelet mean volume (Bld) [Entitic vol] 11.2 fL Normal 6.2-12.0 [facility] Comment on above: Performed By: #### L 100.0100, L500.2500 ####[facility] [address] [place], [address] Platelets (Bld) [#/Vol] 303 10*3/uL Normal 150-450 [facility] Comment on above: Performed By: #### L 100.0100, L500.2500 ####[facility] [address] [place], [address] RBC (Bld) [#/Vol] 3.12 10*6/uL Low 4.6-6.2 [facility] Comment on above: Performed By: #### L 100.0100, L500.2500 ####[facility] [address] [place], [address] RDW SD 52.3 fl High 35.1-43.9 [facility] Comment on above: Performed By: #### L 100.0100, L500.2500 ####[facility] [address] [place], [address] WBC (Bld) [#/Vol] 15.9 10*3/uL High 4.4-11.0 [facility] Comment on above: Performed By: #### L 100.0100, L500.2500 ####[facility] [address] [place], [address] Wound Cultureon 04-22-2024 WC Normal [facility] Comment on above: Performed By: #### M 100.2000, M100.3000 ####[facility] [address] [place], [address] Basic Metabolic Profile (BMP )on 04-21-2024 BUN/CRE 14.8 RATIO Normal 10-20 [facility] Comment on above: Performed By: #### L 500.2500, L100.0100 ####[facility] [address] [place], [address] CA,Total 8.6 mg/dL Normal 8.5-10.1 [facility] Comment on above: Performed By: #### L 500.2500, L100.0100 ####[facility] [address] [place], [address] Chloride [Moles/Vol] 98 mmol/L Normal 98-107 [facility] Comment on above: Performed By: #### L 500.2500, L100.0100 ####[facility] [address] [place], [address] CO2 [Moles/Vol] 25.0 mmol/L Normal 21.0-32.0 [facility] Comment on above: Performed By: #### L 500.2500, L100.0100 ####[facility] [address] [place], [address] Creatinine [Mass/Vol] 6.13 mg/dL High 0.70-1.30 [facility] Comment on above: Result Comment: The validity of the calculated GFR GFRAA in patients over70 years has not been determined. Clinical correlation isessential. Performed By: #### L 500.2500, L100.0100 ####[facility] [address] [place], [address] ECRCL 10.02 ml/min Normal [facility] Comment on above: Performed By: #### L 500.2500, L100.0100 ####[facility] [address] [place], [address] EST GFR - AA 11 mL/min Low >60 [facility] Comment on above: Result Comment: Afri can Senegalese GFR Calc Performed By: #### L 500.2500, L100.0100 ####[facility] [address] [place], [address] GAP 9 Normal 5-15 [facility] Comment on above: Performed By: #### L 500.2500, L100.0100 ####[facility] [address] [place], [address] GFR/1.73 sq M.predicted among non-blacks MDRD (S/P/Bld) [Vol rate/Area] 9 mL/min/{1.73_m2} Low >60 [facility] Comment on above: Result Comment: Non- GFR Calc Performed By: #### L 500.2500, L100.0100 ####[facility] [address] [place], [address] Glucose [Mass/Vol] 123 mg/dL High 74-106 [facility] Comment on above: Result Comment: Fast ing Glucose result from 100 to 125 mg/dLsuggests IMPAIRED HOMEOSTASIS per A.D.A. criteria. Performed By: #### L 500.2500, L100.0100 ####[facility] [address] [place], [address] Potassium [Moles/Vol] 4.4 mmol/L Normal 3.5-5.1 [facility] Comment on above: Performed By: #### L 500.2500, L100.0100 ####[facility] [address] [place], [address] Sodium [Moles/Vol] 132 mmol/L Low 136-145 [facility] Comment on above: Performed By: #### L 500.2500, L100.0100 ####[facility] [address] [place], [address] Urea nitrogen [Mass/Vol] 91 mg/dL High 7-18 [facility] Comment on above: Performed By: #### L 500.2500, L100.0100 ####[facility] [address] [place], [address] Bedside Glucoseon 04-21-2024 FINGERSTICK GLU 158 mg/dL High 74-106 [facility] Comment on above: Result Comment: FANG GEMENT OF PATIENT CARE PER NURSING PROTOCOL Performed By: #### L 501.080 ####[facility] [address] [place], [address] FINGERSTICK GLU 173 mg/dL High 74-106 [facility] Comment on above: Result Comment: FANG GEMENT OF PATIENT CARE PER NURSING PROTOCOL Performed By: #### L 501.080 ####[facility] [address] [place], [address] FINGERSTICK GLU 312 mg/dL High 74-106 [facility] Comment on above: Result Comment: FANG GEMENT OF PATIENT CARE PER NURSING PROTOCOL Performed By: #### L 501.080 ####[facility] [address] [place], [address] FINGERSTICK GLU 103 mg/dL Normal 74-106 [facility] Comment on above: Result Comment: FANG VAZQUEZ OF PATIENT CARE PER NURSING PROTOCOL Performed By: #### L 501.080 ####[facility] [address], [address] CBC W/Diff, Automatedon 11-3 0-2024 Absolute Lymph 2.21 X10 3/uL Normal 0.83-4.51 [facility] Comment on above: Performed By: #### L 500.2500, L100.0100 ####[facility] [address] [place], [address] Absolute Neut 10.9 X10 3/uL High 2.0-7.7 [facility] Comment on above: Performed By: #### L 500.2500, L100.0100 ####[facility] [address] [place], [address] Basophils/100 WBC (Bld) 0.3 % Normal 0-1 [facility] Comment on above: Performed By: #### L 500.2500, L100.0100 ####[facility] [address] [place], [address] Eosinophils/100 WBC (Bld) 2.1 % Normal 0-5 [facility] Comment on above: Performed By: #### L 500.2500, L100.0100 ####[facility] [address] [place], [address] Erythrocyte distribution width (RBC) [Ratio] 14.9 % High 11.6-14.6 [facility] Comment on above: Performed By: #### L 500.2500, L100.0100 ####[facility] [address] [place], [address] Hematocrit (Bld) [Volume fraction] 31.2 % Low 40-54 [facility] Comment on above: Performed By: #### L 500.2500, L100.0100 ####[facility] [address] [place], [address] Hemoglobin (Bld) [Mass/Vol] 9.4 g/dL Low 13.0-16.5 [facility] Comment on above: Performed By: #### L 500.2500, L100.0100 ####[facility] [address] [place], [address] IG% 1.700 High 0.0-0.9 [facility] Comment on above: Result Comment: IG% - Immature Granulocytes (promyelocytes, myelocytes andmetamyelocytes) > 1% indicates that a LEFT SHIFT is Present. Performed By: #### L 500.2500, L100.0100 ####[facility] [address] [place], [address] Lymphocytes/100 WBC (Bld) 14.7 % Low 19-41 [facility] Comment on above: Performed By: #### L 500.2500, L100.0100 ####[facility] [address] [place], [address] MCH (RBC) [Entitic mass] 29.1 pg Normal 27.0-32.0 [facility] Comment on above: Performed By: #### L 500.2500, L100.0100 ####[facility] [address] [place], [address] MCHC (RBC) [Mass/Vol] 30.1 g/dL Low 32-36 [facility] Comment on above: Performed By: #### L 500.2500, L100.0100 ####[facility] [address] [place], [address] MCV (RBC) [Entitic vol] 96.6 fL High 80-94 [facility] Comment on above: Performed By: #### L 500.2500, L100.0100 ####[facility] [address] [place], [address] Monocytes/100 WBC (Bld) 8.6 % Normal 0-10 [facility] Comment on above: Performed By: #### L 500.2500, L100.0100 ####[facility] [address] [place], [address] Neutrophils/100 WBC (Bld) 72.6 % High 47-70 [facility] Comment on above: Performed By: #### L 500.2500, L100.0100 ####[facility] [address] [place], [address] Nucleated RBC (Bld) [#/Vol] 0 10*3/uL Normal 0-5 [facility] Comment on above: Performed By: #### L 500.2500, L100.0100 ####[facility] [address] [place], [address] Platelet mean volume (Bld) [Entitic vol] 10.8 fL Normal 6.2-12.0 [facility] Comment on above: Performed By: #### L 500.2500, L100.0100 ####[facility] [address] [place], [address] Platelets (Bld) [#/Vol] 285 10*3/uL Normal 150-450 [facility] Comment on above: Performed By: #### L 500.2500, L100.0100 ####[facility] [address] [place], [address] RBC (Bld) [#/Vol] 3.23 10*6/uL Low 4.6-6.2 [facility] Comment on above: Performed By: #### L 500.2500, L100.0100 ####[facility] [address] [place], [address] RDW SD 51.8 fl High 35.1-43.9 [facility] Comment on above: Performed By: #### L 500.2500, L100.0100 ####[facility] [address] [place], [address] WBC (Bld) [#/Vol] 15.0 10*3/uL High 4.4-11.0 [facility] Comment on above: Performed By: #### L 500.2500, L100.0100 ####[facility] [address] [place], [address] Culture, Anaerobic Any Sourc reed 04-21-2024 CUAN Normal [facility] Comment on above: Performed By: #### M 100.4001, M100.2000, M100.3000 ####[facility] [address] [place], [address] Vancomycin, Random Levelon 1 06-21-2023 VANCO, RANDOM 15.6 ug/mL High 0.0-15.0 [facility] Comment on above: Result Comment: VANC OMYCIN STANDARD DRUG THERAPY: CRITICAL VALUE IS > 15.0 mg/LVANCOMYCIN HIGH INTENSITY THERAPY: CRITICAL VALUE IS > 20.0 mg/LPLEASE CONTACT PHARMACY SERVICES (#9621) FOR INTERPRETATIONOF RESULTS. THIS RESULT DOES NOT REPRESENT A PEAK OR TROUGHLEVEL FOR THIS DRUG. Performed By: #### L 501.8850 ####[facility] [address] [place], [address] Basic Metabolic Profile (BMP )on 04-20-2024 BUN/CRE 14.3 RATIO Normal 10-20 [facility] Comment on above: Performed By: #### L 500.2500, L100.0100 ####[facility] [address] [place], [address] CA,Total 8.6 mg/dL Normal 8.5-10.1 [facility] Comment on above: Performed By: #### L 500.2500, L100.0100 ####[facility] [facility] [address] [place], [address] Chloride [Moles/Vol] 98 mmol/L Normal 98-107 [facility] Comment on above: Performed By: #### L 500.2500, L100.0100 ####[facility] [address] [place], [address] CO2 [Moles/Vol] 23.0 mmol/L Normal 21.0-32.0 [facility] Comment on above: Performed By: #### L 500.2500, L100.0100 ####[facility] [address] [place], [address] Creatinine [Mass/Vol] 5.23 mg/dL High 0.70-1.30 [facility] Comment on above: Result Comment: The validity of the calculated GFR GFRAA in patients over70 years has not been determined. Clinical correlation isessential. Performed By: #### L 500.2500, L100.0100 ####[facility] [address] [place], [address] ECRCL 11.74 ml/min Normal [facility] Comment on above: Performed By: #### L 500.2500, L100.0100 ####[facility] [address] [place], [address] EST GFR - AA 14 mL/min Low >60 [facility] Comment on above: Result Comment: Afri can Senegalese GFR Calc Performed By: #### L 500.2500, L100.0100 ####[facility] [address] [place], [address] GAP 10 Normal 5-15 [facility] Comment on above: Performed By: #### L 500.2500, L100.0100 ####[facility] [address] [place], [address] GFR/1.73 sq M.predicted among non-blacks MDRD (S/P/Bld) [Vol rate/Area] 11 mL/min/{1.73_m2} Low >60 [facility] Comment on above: Result Comment: Non- GFR Calc Performed By: #### L 500.2500, L100.0100 ####[facility] [address], [address] Glucose [Mass/Vol] 264 mg/dL High 74-106 [facility] Comment on above: Result Comment: Gluc ose result greater than or equal to 200 mg/dLsuggests DIABETES MELLITUS per A.D.A. criteria. Performed By: #### L 500.2500, L100.0100 ####[facility] [address] [place], [address] Potassium [Moles/Vol] 4.4 mmol/L Normal 3.5-5.1 [facility] Comment on above: Performed By: #### L 500.2500, L100.0100 ####[facility] [address] [place], [address] Sodium [Moles/Vol] 131 mmol/L Low 136-145 [facility] Comment on above: Performed By: #### L 500.2500, L100.0100 ####[facility] [address] [place], [address] Urea nitrogen [Mass/Vol] 75 mg/dL High 7-18 [facility] Comment on above: Performed By: #### L 500.2500, L100.0100 ####[facility] [address] [place], [address] Bedside Glucoseon 04-20-2024 FINGERSTICK GLU 317 mg/dL High 74-106 [facility] Comment on above: Result Comment: FANG VAZQUEZ OF PATIENT CARE PER NURSING PROTOCOL Performed By: #### L 501.080 ####[facility] [address] [place], [address] FINGERSTICK GLU 306 mg/dL High 74-106 [facility] Comment on above: Result Comment: FANG GEMENT OF PATIENT CARE PER NURSING PROTOCOL Performed By: #### L 501.080 ####[facility] [address] [place], [address] FINGERSTICK GLU 254 mg/dL High 74-106 [facility] Comment on above: Result Comment: FANG GEMENT OF PATIENT CARE PER NURSING PROTOCOL Performed By: #### L 501.080 ####[facility] [address] [place], [address] CBC W/Diff, Automatedon 11-2 Absolute Lymph 1.78 X10 3/uL Normal 0.83-4.51 [facility] Comment on above: Performed By: #### L 500.2500, L100.0100 ####[facility] [address] [place], [address] Absolute Neut 10.4 X10 3/uL High 2.0-7.7 [facility] Comment on above: Performed By: #### L 500.2500, L100.0100 ####[facility] [address] [place], [address] Basophils/100 WBC (Bld) 0.4 % Normal 0-1 [facility] Comment on above: Performed By: #### L 500.2500, L100.0100 ####[facility] [address] [place], [address] Eosinophils/100 WBC (Bld) 2.2 % Normal 0-5 [facility] Comment on above: Performed By: #### L 500.2500, L100.0100 ####[facility] [address] [place], [address] Erythrocyte distribution width (RBC) [Ratio] 14.8 % High 11.6-14.6 [facility] Comment on above: Performed By: #### L 500.2500, L100.0100 ####[facility] [address] [place], [address] Hematocrit (Bld) [Volume fraction] 30.3 % Low 40-54 [facility] Comment on above: Performed By: #### L 500.2500, L100.0100 ####[facility] [address] [place], [address] Hemoglobin (Bld) [Mass/Vol] 9.6 g/dL Low 13.0-16.5 [facility] Comment on above: Performed By: #### L 500.2500, L100.0100 ####[facility] [address] [place], [address] IG% 1.400 High 0.0-0.9 [facility] Comment on above: Result Comment: IG% - Immature Granulocytes (promyelocytes, myelocytes andmetamyelocytes) > 1% indicates that a LEFT SHIFT is Present. Performed By: #### L 500.2500, L100.0100 ####[facility] [address] [place], [address] Lymphocytes/100 WBC (Bld) 12.8 % Low 19-41 [facility] Comment on above: Performed By: #### L 500.2500, L100.0100 ####[facility] [address] [place], [address] MCH (RBC) [Entitic mass] 30.3 pg Normal 27.0-32.0 [facility] Comment on above: Performed By: #### L 500.2500, L100.0100 ####[facility] [address] [place], [address] MCHC (RBC) [Mass/Vol] 31.7 g/dL Low 32-36 [facility] Comment on above: Performed By: #### L 500.2500, L100.0100 ####[facility] [address] [place], [address] MCV (RBC) [Entitic vol] 95.6 fL High 80-94 [facility] Comment on above: Performed By: #### L 500.2500, L100.0100 ####[facility] [address] [place], [address] Monocytes/100 WBC (Bld) 8.5 % Normal 0-10 [facility] Comment on above: Performed By: #### L 500.2500, L100.0100 ####[facility] [address] [place], [address] Neutrophils/100 WBC (Bld) 74.7 % High 47-70 [facility] Comment on above: Performed By: #### L 500.2500, L100.0100 ####[facility] [address] [place], [address] Nucleated RBC (Bld) [#/Vol] 0 10*3/uL Normal 0-5 [facility] Comment on above: Performed By: #### L 500.2500, L100.0100 ####[facility] [address] [place], [address] Platelet mean volume (Bld) [Entitic vol] 11.2 fL Normal 6.2-12.0 [facility] Comment on above: Performed By: #### L 500.2500, L100.0100 ####[facility] [address] [place], [address] Platelets (Bld) [#/Vol] 260 10*3/uL Normal 150-450 [facility] Comment on above: Performed By: #### L 500.2500, L100.0100 ####[facility] [address] [place], [address] RBC (Bld) [#/Vol] 3.17 10*6/uL Low 4.6-6.2 [facility] Comment on above: Performed By: #### L 500.2500, L100.0100 ####[facility] [address] [place], [address] RDW SD 51.7 fl High 35.1-43.9 [facility] Comment on above: Performed By: #### L 500.2500, L100.0100 ####[facility] [address] [place], [address] WBC (Bld) [#/Vol] 13.9 10*3/uL High 4.4-11.0 [facility] Comment on above: Performed By: #### L 500.2500, L100.0100 ####[facility] [address] [place], [address] Basic Metabolic Profile (BMP )on 04-19-2024 BUN/CRE 14.5 RATIO Normal 10-20 [facility] Comment on above: Performed By: #### L 500.2500, L100.0100 ####[facility] [address] [place], [address] CA,Total 8.4 mg/dL Low 8.5-10.1 [facility] Comment on above: Performed By: #### L 500.2500, L100.0100 ####[facility] [address] [place], [address] Chloride [Moles/Vol] 100 mmol/L Normal 98-107 [facility] Comment on above: Performed By: #### L 500.2500, L100.0100 ####[facility] [address] [place], [address] CO2 [Moles/Vol] 25.0 mmol/L Normal 21.0-32.0 [facility] Comment on above: Performed By: #### L 500.2500, L100.0100 ####[facility] [address] [place], [address] Creatinine [Mass/Vol] 4.13 mg/dL High 0.70-1.30 [facility] Comment on above: Result Comment: The validity of the calculated GFR GFRAA in patients over70 years has not been determined. Clinical correlation isessential. Performed By: #### L 500.2500, L100.0100 ####[facility] [address] [place], [address] ECRCL 14.76 ml/min Normal [facility] Comment on above: Performed By: #### L 500.2500, L100.0100 ####[facility] [address] [place], [address] EST GFR - AA 18 mL/min Low >60 [facility] Comment on above: Result Comment: Afri can Senegalese GFR Calc Performed By: #### L 500.2500, L100.0100 ####[facility] [address] [place], [address] GAP 9 Normal 5-15 [facility] Comment on above: Performed By: #### L 500.2500, L100.0100 ####[facility] [address] [place], [address] GFR/1.73 sq M.predicted among non-blacks MDRD (S/P/Bld) [Vol rate/Area] 15 mL/min/{1.73_m2} Low >60 [facility] Comment on above: Result Comment: Non- GFR Calc Performed By: #### L 500.2500, L100.0100 ####[facility] [address] [place], [address] Glucose [Mass/Vol] 272 mg/dL High 74-106 [facility] Comment on above: Result Comment: Gluc ose result greater than or equal to 200 mg/dLsuggests DIABETES MELLITUS per A.D.A. criteria. Performed By: #### L 500.2500, L100.0100 ####[facility] [address] [place], [address] Potassium [Moles/Vol] 4.2 mmol/L Normal 3.5-5.1 [facility] Comment on above: Performed By: #### L 500.2500, L100.0100 ####[facility] [address] [place], [address] Sodium [Moles/Vol] 134 mmol/L Low 136-145 [facility] Comment on above: Performed By: #### L 500.2500, L100.0100 ####[facility] [address] [place], [address] Urea nitrogen [Mass/Vol] 60 mg/dL High 7-18 [facility] Comment on above: Performed By: #### L 500.2500, L100.0100 ####[facility] [address] [place], [address] Bedside Glucoseon 04-19-2024 FINGERSTICK GLU 261 mg/dL High 74-106 [facility] Comment on above: Result Comment: FANG GEMENT OF PATIENT CARE PER NURSING PROTOCOL Performed By: #### L 501.080 ####[facility] [address] [place], [address] FINGERSTICK GLU 292 mg/dL High 74-106 [facility] Comment on above: Result Comment: FANG GEMENT OF PATIENT CARE PER NURSING PROTOCOL Performed By: #### L 501.080 ####[facility] [address] [place], [address] FINGERSTICK GLU 298 mg/dL High 74-106 [facility] Comment on above: Result Comment: FANG GEMENT OF PATIENT CARE PER NURSING PROTOCOL Performed By: #### L 501.080 ####[facility] [address] [place], [address] FINGERSTICK GLU 247 mg/dL High 74-106 [facility] Comment on above: Result Comment: FANG VAZQUEZ OF PATIENT CARE PER NURSING PROTOCOL Performed By: #### L 501.080 ####[facility] [address] [place], [address] CBC W/Diff, Automatedon 11- Absolute Lymph 1.63 X10 3/uL Normal 0.83-4.51 [facility] Comment on above: Performed By: #### L 500.2500, L100.0100 ####[facility] [address] [place], [address] Absolute Neut 11.4 X10 3/uL High 2.0-7.7 [facility] Comment on above: Performed By: #### L 500.2500, L100.0100 ####[facility] [address] [place], [address] Basophils/100 WBC (Bld) 0.3 % Normal 0-1 [facility] Comment on above: Performed By: #### L 500.2500, L100.0100 ####[facility] [address] [place], [address] Eosinophils/100 WBC (Bld) 1.1 % Normal 0-5 [facility] Comment on above: Performed By: #### L 500.2500, L100.0100 ####[facility] [address] [place], [address] Erythrocyte distribution width (RBC) [Ratio] 15.0 % High 11.6-14.6 [facility] Comment on above: Performed By: #### L 500.2500, L100.0100 ####[facility] [address] [place], [address] Hematocrit (Bld) [Volume fraction] 30.5 % Low 40-54 [facility] Comment on above: Performed By: #### L 500.2500, L100.0100 ####[facility] [address] [place], [address] Hemoglobin (Bld) [Mass/Vol] 9.4 g/dL Low 13.0-16.5 [facility] Comment on above: Performed By: #### L 500.2500, L100.0100 ####[facility] [address] [place], [address] IG% 0.900 Normal 0.0-0.9 [facility] Comment on above: Result Comment: IG% - Immature Granulocytes (promyelocytes, myelocytes andmetamyelocytes) > 1% indicates that a LEFT SHIFT is Present. Performed By: #### L 500.2500, L100.0100 ####[facility] [address] [place], [address] Lymphocytes/100 WBC (Bld) 11.1 % Low 19-41 [facility] Comment on above: Performed By: #### L 500.2500, L100.0100 ####[facility] [address] [place], [address] MCH (RBC) [Entitic mass] 29.8 pg Normal 27.0-32.0 [facility] Comment on above: Performed By: #### L 500.2500, L100.0100 ####[facility] [address] [place], [address] MCHC (RBC) [Mass/Vol] 30.8 g/dL Low 32-36 [facility] Comment on above: Performed By: #### L 500.2500, L100.0100 ####[facility] [address] [place], [address] MCV (RBC) [Entitic vol] 96.8 fL High 80-94 [facility] Comment on above: Performed By: #### L 500.2500, L100.0100 ####[facility] [address] [place], [address] Monocytes/100 WBC (Bld) 8.9 % Normal 0-10 [facility] Comment on above: Performed By: #### L 500.2500, L100.0100 ####[facility] [address] [place], [address] Neutrophils/100 WBC (Bld) 77.7 % High 47-70 [facility] Comment on above: Performed By: #### L 500.2500, L100.0100 ####[facility] [address] [place], [address] Nucleated RBC (Bld) [#/Vol] 0 10*3/uL Normal 0-5 [facility] Comment on above: Performed By: #### L 500.2500, L100.0100 ####[facility] [address] [place], [address] Platelet mean volume (Bld) [Entitic vol] 11.4 fL Normal 6.2-12.0 [facility] Comment on above: Performed By: #### L 500.2500, L100.0100 ####[facility] [address] [place], [address] Platelets (Bld) [#/Vol] 253 10*3/uL Normal 150-450 [facility] Comment on above: Performed By: #### L 500.2500, L100.0100 ####[facility] [address] [place], [address] RBC (Bld) [#/Vol] 3.15 10*6/uL Low 4.6-6.2 [facility] Comment on above: Performed By: #### L 500.2500, L100.0100 ####[facility] [address] [place], [address] RDW SD 52.9 fl High 35.1-43.9 [facility] Comment on above: Performed By: #### L 500.2500, L100.0100 ####[facility] [address] [place], [address] WBC (Bld) [#/Vol] 14.6 10*3/uL High 4.4-11.0 [facility] Comment on above: Performed By: #### L 500.2500, L100.0100 ####[facility] [address] [place], [address] Culture, Blood (WB)on 2023 CUB Blood cultures x2 fr om two different sites No growth in 5 days. Normal [facility] Comment on above: Performed By: #### M 200.1000 ####[facility] [address] [place], [address] ACT Activated Clotting Timeo n 04-18-2024 ACTk CLOT TIME 222 sec High 74-137 [facility] Comment on above: Performed By: #### L 9100.0100 ####[facility] [address] [place], [address] BUNon 04-18-2024 Urea nitrogen [Mass/Vol] 39 mg/dL High 7-18 [facility] Comment on above: Performed By: #### L 501.1105, L501.1000 ####[facility] [address] [place], [address] Basic Metabolic Profile (BMP )on 04-18-2024 BUN/CRE 16.6 RATIO Normal 10-20 [facility] Comment on above: Performed By: #### L 500.2500, L100.0100 ####[facility] [address] [place], [address] CA,Total 8.5 mg/dL Normal 8.5-10.1 [facility] Comment on above: Performed By: #### L 500.2500, L100.0100 ####[facility] [address] [place], [address] Chloride [Moles/Vol] 98 mmol/L Normal 98-107 [facility] Comment on above: Performed By: #### L 500.2500, L100.0100 ####[facility] [address] [place], [address] CO2 [Moles/Vol] 24.0 mmol/L Normal 21.0-32.0 [facility] Comment on above: Performed By: #### L 500.2500, L100.0100 ####[facility] [address] [place], [address] Creatinine [Mass/Vol] 5.00 mg/dL High 0.70-1.30 [facility] Comment on above: Result Comment: The validity of the calculated GFR GFRAA in patients over70 years has not been determined. Clinical correlation isessential. Performed By: #### L 500.2500, L100.0100 ####[facility] [address] [place], [address] ECRCL 12.43 ml/min Normal [facility] Comment on above: Performed By: #### L 500.2500, L100.0100 ####[facility] [address] [place], [address] EST GFR - AA 14 mL/min Low >60 [facility] Comment on above: Result Comment: Afri can Senegalese GFR Calc Performed By: #### L 500.2500, L100.0100 ####[facility] [address] [place], [address] GAP 10 Normal 5-15 [facility] Comment on above: Performed By: #### L 500.2500, L100.0100 ####[facility] [address] [place], [address] GFR/1.73 sq M.predicted among non-blacks MDRD (S/P/Bld) [Vol rate/Area] 12 mL/min/{1.73_m2} Low >60 [facility] Comment on above: Result Comment: Non- GFR Calc Performed By: #### L 500.2500, L100.0100 ####[facility] [address] [place], [address] Glucose [Mass/Vol] 136 mg/dL High 74-106 [facility] Comment on above: Result Comment: Fast ing Glucose result greater than or equal to 126 mg/dLsuggests DIABETES MELLITUS per A.D.A. criteria. Performed By: #### L 500.2500, L100.0100 ####[facility] [address] [place], [address] Potassium [Moles/Vol] 4.1 mmol/L Normal 3.5-5.1 [facility] Comment on above: Performed By: #### L 500.2500, L100.0100 ####[facility] [address] [place], [address] Sodium [Moles/Vol] 132 mmol/L Low 136-145 [facility] Comment on above: Performed By: #### L 500.2500, L100.0100 ####[facility] [address] [place], [address] Urea nitrogen [Mass/Vol] 83 mg/dL High 7-18 [facility] Comment on above: Performed By: #### L 500.2500, L100.0100 ####[facility] [address] [place], [address] Bedside Glucoseon 04-18-2024 FINGERSTICK GLU 289 mg/dL High 74-106 [facility] Comment on above: Result Comment: FANG GEMENT OF PATIENT CARE PER NURSING PROTOCOL Performed By: #### L 501.080 ####[facility] [address] [place], [address] FINGERSTICK GLU 106 mg/dL Normal 74-106 [facility] Comment on above: Result Comment: FANG GEMENT OF PATIENT CARE PER NURSING PROTOCOL Performed By: #### L 501.080 ####[facility] [address] [place], [address] FINGERSTICK GLU 123 mg/dL High 74-106 [facility] Comment on above: Result Comment: FANG GEMENT OF PATIENT CARE PER NURSING PROTOCOL Performed By: #### L 501.080 ####[facility] [address] [place], [address] FINGERSTICK GLU 132 mg/dL High 74-106 [facility] Comment on above: Result Comment: FANG GEMENT OF PATIENT CARE PER NURSING PROTOCOL Performed By: #### L 501.080 ####[facility] [address] [place], [address] FINGERSTICK GLU 313 mg/dL High 74-106 [facility] Comment on above: Result Comment: FANG GEMENT OF PATIENT CARE PER NURSING PROTOCOL Performed By: #### L 501.080 ####[facility] [address] [place], [address] CBC W/Diff, Automatedon 11-2 -2023 Absolute Lymph 1.73 X10 3/uL Normal 0.83-4.51 [facility] Comment on above: Performed By: #### L 500.2500, L100.0100 ####[facility] [address], [address] Absolute Neut 11.4 X10 3/uL High 2.0-7.7 [facility] Comment on above: Performed By: #### L 500.2500, L100.0100 ####[facility] [address] [place], [address] Basophils/100 WBC (Bld) 0.3 % Normal 0-1 [facility] Comment on above: Performed By: #### L 500.2500, L100.0100 ####[facility] [address] [place], [address] Eosinophils/100 WBC (Bld) 1.4 % Normal 0-5 [facility] Comment on above: Performed By: #### L 500.2500, L100.0100 ####[facility] [address] [place], [address] Erythrocyte distribution width (RBC) [Ratio] 14.8 % High 11.6-14.6 [facility] Comment on above: Performed By: #### L 500.2500, L100.0100 ####[facility] [address] [place], [address] Hematocrit (Bld) [Volume fraction] 30.8 % Low 40-54 [facility] Comment on above: Performed By: #### L 500.2500, L100.0100 ####[facility] [address] [place], [address] Hemoglobin (Bld) [Mass/Vol] 9.5 g/dL Low 13.0-16.5 [facility] Comment on above: Performed By: #### L 500.2500, L100.0100 ####[facility] [address] [place], [address] IG% 0.900 Normal 0.0-0.9 [facility] Comment on above: Result Comment: IG% - Immature Granulocytes (promyelocytes, myelocytes andmetamyelocytes) > 1% indicates that a LEFT SHIFT is Present. Performed By: #### L 500.2500, L100.0100 ####[facility] [address] [place], [address] Lymphocytes/100 WBC (Bld) 11.7 % Low 19-41 [facility] Comment on above: Performed By: #### L 500.2500, L100.0100 ####[facility] [address] [place], [address] MCH (RBC) [Entitic mass] 29.8 pg Normal 27.0-32.0 [facility] Comment on above: Performed By: #### L 500.2500, L100.0100 ####[facility] [address] [place], [address] MCHC (RBC) [Mass/Vol] 30.8 g/dL Low 32-36 [facility] Comment on above: Performed By: #### L 500.2500, L100.0100 ####[facility] [address] [place], [address] MCV (RBC) [Entitic vol] 96.6 fL High 80-94 [facility] Comment on above: Performed By: #### L 500.2500, L100.0100 ####[facility] [address] [place], [address] Monocytes/100 WBC (Bld) 8.4 % Normal 0-10 [facility] Comment on above: Performed By: #### L 500.2500, L100.0100 ####[facility] [address] [place], [address] Neutrophils/100 WBC (Bld) 77.3 % High 47-70 [facility] Comment on above: Performed By: #### L 500.2500, L100.0100 ####[facility] [address] [place], [address] Nucleated RBC (Bld) [#/Vol] 0 10*3/uL Normal 0-5 [facility] Comment on above: Performed By: #### L 500.2500, L100.0100 ####[facility] [address] [place], [address] Platelet mean volume (Bld) [Entitic vol] 11.7 fL Normal 6.2-12.0 [facility] Comment on above: Performed By: #### L 500.2500, L100.0100 ####[facility] [address] [place], [address] Platelets (Bld) [#/Vol] 250 10*3/uL Normal 150-450 [facility] Comment on above: Performed By: #### L 500.2500, L100.0100 ####[facility] [address] [place], [address] RBC (Bld) [#/Vol] 3.19 10*6/uL Low 4.6-6.2 [facility] Comment on above: Performed By: #### L 500.2500, L100.0100 ####[facility] [address] [place], [address] RDW SD 51.9 fl High 35.1-43.9 [facility] Comment on above: Performed By: #### L 500.2500, L100.0100 ####[facility] [address] [place], [address] WBC (Bld) [#/Vol] 14.7 10*3/uL High 4.4-11.0 [facility] Comment on above: Performed By: #### L 500.2500, L100.0100 ####[facility] [address] [place], [address] Operative Reporton Operative Report Normal [facility] Serum Creatinine AND GFRon 06-18-2023 Creatinine [Mass/Vol] 2.45 mg/dL High 0.70-1.30 [facility] Comment on above: Result Comment: The validity of the calculated GFR GFRAA in patients over70 years has not been determined. Clinical correlation isessential. Performed By: #### L 501.1105, L501.1000 ####[facility] [address] [place], [address] ECRCL 24.91 ml/min Normal [facility] Comment on above: Performed By: #### L 501.1105, L501.1000 ####[facility] [address] [place], [address] EST GFR - AA 32 mL/min Low >60 [facility] Comment on above: Result Comment: Afri can Senegalese GFR Calc Performed By: #### L 501.1105, L501.1000 ####[facility] [address] [place], [address] GFR/1.73 sq M.predicted among non-blacks MDRD (S/P/Bld) [Vol rate/Area] 27 mL/min/{1.73_m2} Low >60 [facility] Comment on above: Result Comment: Non- GFR Calc Performed By: #### L 501.1105, L501.1000 ####[facility] [address] [place], [address] Vancomycin, Random Levelon 1 06-18-2023 VANCO, RANDOM 16.5 ug/mL High 0.0-15.0 [facility] Comment on above: Order Comment: Comme nts: WITH AM LABS PLEASE, PRIOR TO HD Result Comment: VANC OMYCIN STANDARD DRUG THERAPY: CRITICAL VALUE IS > 15.0 mg/LVANCOMYCIN HIGH INTENSITY THERAPY: CRITICAL VALUE IS > 20.0 mg/LPLEASE CONTACT PHARMACY SERVICES (#9154) FOR INTERPRETATIONOF RESULTS. THIS RESULT DOES NOT REPRESENT A PEAK OR TROUGHLEVEL FOR THIS DRUG. Performed By: #### L 501.8850 ####[facility] [address] [place], [address] Basic Metabolic Profile (BMP )on 04-17-2024 BUN/CRE 14.9 RATIO Normal 10-20 [facility] Comment on above: Performed By: #### L 100.0100, L500.2500 ####[facility] [address] [place], [address] CA,Total 8.7 mg/dL Normal 8.5-10.1 [facility] Comment on above: Performed By: #### L 100.0100, L500.2500 ####[facility] [address] [place], [address] Chloride [Moles/Vol] 99 mmol/L Normal 98-107 [facility] Comment on above: Performed By: #### L 100.0100, L500.2500 ####[facility] [address] [place], [address] CO2 [Moles/Vol] 27.0 mmol/L Normal 21.0-32.0 [facility] Comment on above: Performed By: #### L 100.0100, L500.2500 ####[facility] [address] [place], [address] Creatinine [Mass/Vol] 3.88 mg/dL High 0.70-1.30 [facility] Comment on above: Result Comment: The validity of the calculated GFR GFRAA in patients over70 years has not been determined. Clinical correlation isessential. Performed By: #### L 100.0100, L500.2500 ####[facility] [address] [place], [address] ECRCL 15.55 ml/min Normal [facility] Comment on above: Performed By: #### L 100.0100, L500.2500 ####[facility] [address] [place], [address] EST GFR - AA 19 mL/min Low >60 [facility] Comment on above: Result Comment: Afri can Senegalese GFR Calc Performed By: #### L 100.0100, L500.2500 ####[facility] [address] [place], [address] GAP 8 Normal 5-15 [facility] Comment on above: Performed By: #### L 100.0100, L500.2500 ####[facility] [address] [place], [address] GFR/1.73 sq M.predicted among non-blacks MDRD (S/P/Bld) [Vol rate/Area] 16 mL/min/{1.73_m2} Low >60 [facility] Comment on above: Result Comment: Non- GFR Calc Performed By: #### L 100.0100, L500.2500 ####[facility] [address] [place], [address] Glucose [Mass/Vol] 139 mg/dL High 74-106 [facility] Comment on above: Result Comment: Fast ing Glucose result greater than or equal to 126 mg/dLsuggests DIABETES MELLITUS per A.D.A. criteria. Performed By: #### L 100.0100, L500.2500 ####[facility] [address] [place], [address] Potassium [Moles/Vol] 4.0 mmol/L Normal 3.5-5.1 [facility] Comment on above: Performed By: #### L 100.0100, L500.2500 ####[facility] [address] [place], [address] Sodium [Moles/Vol] 133 mmol/L Low 136-145 [facility] Comment on above: Performed By: #### L 100.0100, L500.2500 ####[facility] [address] [place], [address] Urea nitrogen [Mass/Vol] 58 mg/dL High 7-18 [facility] Comment on above: Performed By: #### L 100.0100, L500.2500 ####[facility] [address] [place], [address] Bedside Glucoseon 04-17-2024 FINGERSTICK GLU 337 mg/dL High 74-106 [facility] Comment on above: Result Comment: FANG VAZQUEZ OF PATIENT CARE PER NURSING PROTOCOL Performed By: #### L 501.080 ####[facility] [address] [place], [address] FINGERSTICK GLU 219 mg/dL High 74-106 [facility] Comment on above: Result Comment: FANG GEMENT OF PATIENT CARE PER NURSING PROTOCOL Performed By: #### L 501.080 ####[facility] [address] [place], [address] FINGERSTICK GLU 139 mg/dL High 74-106 [facility] Comment on above: Result Comment: FANG GEMENT OF PATIENT CARE PER NURSING PROTOCOL Performed By: #### L 501.080 ####[facility] [address] [place], [address] CBC W/Diff, Automatedon 11-2 -2023 Absolute Lymph 2.01 X10 3/uL Normal 0.83-4.51 [facility] Comment on above: Performed By: #### L 100.0100, L500.2500 ####[facility] [address] [place], [address] Absolute Neut 11.4 X10 3/uL High 2.0-7.7 [facility] Comment on above: Performed By: #### L 100.0100, L500.2500 ####[facility] [address] [place], [address] Basophils/100 WBC (Bld) 0.2 % Normal 0-1 [facility] Comment on above: Performed By: #### L 100.0100, L500.2500 ####[facility] [address] [place], [address] Eosinophils/100 WBC (Bld) 0.9 % Normal 0-5 [facility] Comment on above: Performed By: #### L 100.0100, L500.2500 ####[facility] [address] [place], [address] Erythrocyte distribution width (RBC) [Ratio] 14.8 % High 11.6-14.6 [facility] Comment on above: Performed By: #### L 100.0100, L500.2500 ####[facility] [address] [place], [address] Hematocrit (Bld) [Volume fraction] 32.2 % Low 40-54 [facility] Comment on above: Performed By: #### L 100.0100, L500.2500 ####[facility] [address] [place], [address] Hemoglobin (Bld) [Mass/Vol] 9.7 g/dL Low 13.0-16.5 [facility] Comment on above: Performed By: #### L 100.0100, L500.2500 ####[facility] [address] [place], [address] IG% 0.500 Normal 0.0-0.9 [facility] Comment on above: Result Comment: IG% - Immature Granulocytes (promyelocytes, myelocytes andmetamyelocytes) > 1% indicates that a LEFT SHIFT is Present. Performed By: #### L 100.0100, L500.2500 ####[facility] [address] [place], [address] Lymphocytes/100 WBC (Bld) 13.4 % Low 19-41 [facility] Comment on above: Performed By: #### L 100.0100, L500.2500 ####[facility] [address] [place], [address] MCH (RBC) [Entitic mass] 29.6 pg Normal 27.0-32.0 [facility] Comment on above: Performed By: #### L 100.0100, L500.2500 ####[facility] [address] [place], [address] MCHC (RBC) [Mass/Vol] 30.1 g/dL Low 32-36 [facility] Comment on above: Performed By: #### L 100.0100, L500.2500 ####[facility] [address] [place], [address] MCV (RBC) [Entitic vol] 98.2 fL High 80-94 [facility] Comment on above: Performed By: #### L 100.0100, L500.2500 ####[facility] [address] [place], [address] Monocytes/100 WBC (Bld) 9.3 % Normal 0-10 [facility] Comment on above: Performed By: #### L 100.0100, L500.2500 ####[facility] [address] [place], [address] Neutrophils/100 WBC (Bld) 75.7 % High 47-70 [facility] Comment on above: Performed By: #### L 100.0100, L500.2500 ####[facility] [address] [place], [address] Nucleated RBC (Bld) [#/Vol] 0 10*3/uL Normal 0-5 [facility] Comment on above: Performed By: #### L 100.0100, L500.2500 ####[facility] [address] [place], [address] Platelet mean volume (Bld) [Entitic vol] 11.7 fL Normal 6.2-12.0 [facility] Comment on above: Performed By: #### L 100.0100, L500.2500 ####[facility] [address] [place], [address] Platelets (Bld) [#/Vol] 232 10*3/uL Normal 150-450 [facility] Comment on above: Performed By: #### L 100.0100, L500.2500 ####[facility] [address] [place], [address] RBC (Bld) [#/Vol] 3.28 10*6/uL Low 4.6-6.2 [facility] Comment on above: Performed By: #### L 100.0100, L500.2500 ####[facility] [address] [place], [address] RDW SD 53.6 fl High 35.1-43.9 [facility] Comment on above: Performed By: #### L 100.0100, L500.2500 ####[facility] [address] [place], [address] WBC (Bld) [#/Vol] 15.0 10*3/uL High 4.4-11.0 [facility] Comment on above: Performed By: #### L 100.0100, L500.2500 ####[facility] [address] [place], [address] 12 Lead EKGon 04-16-2024 12 Lead EKG Normal [facility] Basic Metabolic Profile (BMP )on 04-16-2024 BUN/CRE 12.0 RATIO Normal 10-20 [facility] Comment on above: Performed By: #### L 100.0100, L500.2500 ####[facility] [address] [place], [address] CA,Total 8.6 mg/dL Normal 8.5-10.1 [facility] Comment on above: Performed By: #### L 100.0100, L500.2500 ####[facility] [address], [address] Chloride [Moles/Vol] 96 mmol/L Low 98-107 [facility] Comment on above: Performed By: #### L 100.0100, L500.2500 ####[facility] [address], [address] CO2 [Moles/Vol] 28.0 mmol/L Normal 21.0-32.0 [facility] Comment on above: Performed By: #### L 100.0100, L500.2500 ####[facility] [address] [place], [address] Creatinine [Mass/Vol] 4.76 mg/dL High 0.70-1.30 [facility] Comment on above: Result Comment: The validity of the calculated GFR GFRAA in patients over70 years has not been determined. Clinical correlation isessential. Performed By: #### L 100.0100, L500.2500 ####[facility] [address] [place], [address] ECRCL 12.86 ml/min Normal [facility] Comment on above: Performed By: #### L 100.0100, L500.2500 ####[facility] [address] [place], [address] EST GFR - AA 15 mL/min Low >60 [facility] Comment on above: Result Comment: Afri can Senegalese GFR Calc Performed By: #### L 100.0100, L500.2500 ####[facility] [address] [place], [address] GAP 9 Normal 5-15 [facility] Comment on above: Performed By: #### L 100.0100, L500.2500 ####[facility] [address] [place], [address] GFR/1.73 sq M.predicted among non-blacks MDRD (S/P/Bld) [Vol rate/Area] 12 mL/min/{1.73_m2} Low >60 [facility] Comment on above: Result Comment: Non- GFR Calc Performed By: #### L 100.0100, L500.2500 ####[facility] [address] [place], [address] Glucose [Mass/Vol] 148 mg/dL High 74-106 [facility] Comment on above: Result Comment: Fast ing Glucose result greater than or equal to 126 mg/dLsuggests DIABETES MELLITUS per A.D.A. criteria. Performed By: #### L 100.0100, L500.2500 ####[facility] [address] [place], [address] Potassium [Moles/Vol] 4.1 mmol/L Normal 3.5-5.1 [facility] Comment on above: Performed By: #### L 100.0100, L500.2500 ####[facility] [address] [place], [address] Sodium [Moles/Vol] 133 mmol/L Low 136-145 [facility] Comment on above: Performed By: #### L 100.0100, L500.2500 ####[facility] [address] [place], [address] Urea nitrogen [Mass/Vol] 57 mg/dL High 7-18 [facility] Comment on above: Performed By: #### L 100.0100, L500.2500 ####[facility] [address] [place], [address] Bedside Glucoseon 04-16-2024 FINGERSTICK GLU 273 mg/dL High 74-106 [facility] Comment on above: Result Comment: FANG GEMENT OF PATIENT CARE PER NURSING PROTOCOL Performed By: #### L 501.080 ####[facility] [address] [place], [address] FINGERSTICK GLU 266 mg/dL High 74-106 [facility] Comment on above: Result Comment: FANG GEMENT OF PATIENT CARE PER NURSING PROTOCOL Performed By: #### L 501.080 ####[facility] [address] [place], [address] FINGERSTICK GLU 142 mg/dL High 74-106 [facility] Comment on above: Result Comment: FANG GEMENT OF PATIENT CARE PER NURSING PROTOCOL Performed By: #### L 501.080 ####[facility] [address] [place], [address] CBC W/Diff, Automatedon 11-2 5-2023 Absolute Lymph 1.44 X10 3/uL Normal 0.83-4.51 [facility] Comment on above: Performed By: #### L 100.0100, L500.2500 ####[facility] [address] [place], [address] Absolute Neut 10.4 X10 3/uL High 2.0-7.7 [facility] Comment on above: Performed By: #### L 100.0100, L500.2500 ####[facility] [address] [place], [address] Basophils/100 WBC (Bld) 0.2 % Normal 0-1 [facility] Comment on above: Performed By: #### L 100.0100, L500.2500 ####[facility] [address] [place], [address] Eosinophils/100 WBC (Bld) 0.5 % Normal 0-5 [facility] Comment on above: Performed By: #### L 100.0100, L500.2500 ####[facility] [address] [place], [address] Erythrocyte distribution width (RBC) [Ratio] 14.9 % High 11.6-14.6 [facility] Comment on above: Performed By: #### L 100.0100, L500.2500 ####[facility] [address] [place], [address] Hematocrit (Bld) [Volume fraction] 32.4 % Low 40-54 [facility] Comment on above: Performed By: #### L 100.0100, L500.2500 ####[facility] [address], [address] Hemoglobin (Bld) [Mass/Vol] 10.0 g/dL Low 13.0-16.5 [facility] Comment on above: Performed By: #### L 100.0100, L500.2500 ####[facility] [address] [place], [address] IG% 0.400 Normal 0.0-0.9 [facility] Comment on above: Result Comment: IG% - Immature Granulocytes (promyelocytes, myelocytes andmetamyelocytes) > 1% indicates that a LEFT SHIFT is Present. Performed By: #### L 100.0100, L500.2500 ####[facility] [address] [place], [address] Lymphocytes/100 WBC (Bld) 10.9 % Low 19-41 [facility] Comment on above: Performed By: #### L 100.0100, L500.2500 ####[facility] [address] [place], [address] MCH (RBC) [Entitic mass] 29.9 pg Normal 27.0-32.0 [facility] Comment on above: Performed By: #### L 100.0100, L500.2500 ####[facility] [address] [place], [address] MCHC (RBC) [Mass/Vol] 30.9 g/dL Low 32-36 [facility] Comment on above: Performed By: #### L 100.0100, L500.2500 ####[facility] [address] [place], [address] MCV (RBC) [Entitic vol] 97.0 fL High 80-94 [facility] Comment on above: Performed By: #### L 100.0100, L500.2500 ####[facility] [address] [place], [address] Monocytes/100 WBC (Bld) 9.6 % Normal 0-10 [facility] Comment on above: Performed By: #### L 100.0100, L500.2500 ####[facility] [address] [place], [address] Neutrophils/100 WBC (Bld) 78.4 % High 47-70 [facility] Comment on above: Performed By: #### L 100.0100, L500.2500 ####[facility] [address] [place], [address] Nucleated RBC (Bld) [#/Vol] 0 10*3/uL Normal 0-5 [facility] Comment on above: Performed By: #### L 100.0100, L500.2500 ####[facility] [address] [place], [address] Platelet mean volume (Bld) [Entitic vol] 11.1 fL Normal 6.2-12.0 [facility] Comment on above: Performed By: #### L 100.0100, L500.2500 ####[facility] [address] [place], [address] Platelets (Bld) [#/Vol] 223 10*3/uL Normal 150-450 [facility] Comment on above: Performed By: #### L 100.0100, L500.2500 ####[facility] [address] [place], [address] RBC (Bld) [#/Vol] 3.34 10*6/uL Low 4.6-6.2 [facility] Comment on above: Performed By: #### L 100.0100, L500.2500 ####[facility] [address] [place], [address] RDW SD 52.6 fl High 35.1-43.9 [facility] Comment on above: Performed By: #### L 100.0100, L500.2500 ####[facility] [address] [place], [address] WBC (Bld) [#/Vol] 13.3 10*3/uL High 4.4-11.0 [facility] Comment on above: Performed By: #### L 100.0100, L500.2500 ####[facility] [address] [place], [address] Consultation - Infectious Dx on 04-16-2024 Consultation - Infectious Dx Normal [facility] Consultation - Nephrologyon 04-16-2024 Consultation - Nephrology Normal [facility] Consultation - Surgicalon Consultation - Surgical Normal [facility] Gram Stainon 04-16-2024 GS Gram Stain 2+ Gram positive cocci 2+ Red Blood Cells 2+ Gram variable yessy No Epithelial cells Normal [facility] Comment on above: Performed By: #### M 100.4001, M100.2000, M100.3000 ####[facility] [address] [place], [address] Hemoglobin A1con 04-16-2024 HbA1c (Bld) [Mass fraction] 9.0 % High 3.8-5.6 [facility] Comment on above: Result Comment: Norm al < 5.7 % Prediabetic 5.7 - 6.4 % Diabetic >or= 6.5 % Please note range changes. Performed By: #### L 501.9985 ####[facility] [address] [place], [address] Lower Ext/No Jt/w/oon 2023 Lower Ext/No Jt/w/o Normal [facility] Bedside Glucoseon 04-15-2024 FINGERSTICK GLU 262 mg/dL High 74-106 [facility] Comment on above: Result Comment: FANG GEMENT OF PATIENT CARE PER NURSING PROTOCOL Performed By: #### L 501.080 ####[facility] [address] [place], [address] FINGERSTICK GLU 188 mg/dL High 74-106 [facility] Comment on above: Result Comment: FANG GEMENT OF PATIENT CARE PER NURSING PROTOCOL Performed By: #### L 501.080 ####[facility] [address] [place], [address] FINGERSTICK GLU 114 mg/dL High 74-106 [facility] Comment on above: Result Comment: FANG GEMENT OF PATIENT CARE PER NURSING PROTOCOL Performed By: #### L 501.080 ####[facility] [address] [place], [address] FINGERSTICK GLU 117 mg/dL High 74-106 [facility] Comment on above: Result Comment: FANG GEMENT OF PATIENT CARE PER NURSING PROTOCOL Performed By: #### L 501.080 ####[facility] [address] [place], [address] CBC W/Diff, Automatedon 11-2 Absolute Lymph 1.56 X10 3/uL Normal 0.83-4.51 [facility] Comment on above: Performed By: #### L 500.4050, L501.9520, L300.3900, L100.0100 ####[facility] [address] [place], [address] Absolute Neut 9.4 X10 3/uL High 2.0-7.7 [facility] Comment on above: Performed By: #### L 500.4050, L501.9520, L300.3900, L100.0100 ####[facility] [address] [place], [address] Basophils/100 WBC (Bld) 0.2 % Normal 0-1 [facility] Comment on above: Performed By: #### L 500.4050, L501.9520, L300.3900, L100.0100 ####[facility] [address] [place], [address] Eosinophils/100 WBC (Bld) 0.3 % Normal 0-5 [facility] Comment on above: Performed By: #### L 500.4050, L501.9520, L300.3900, L100.0100 ####[facility] [address] [place], [address] Erythrocyte distribution width (RBC) [Ratio] 15.0 % High 11.6-14.6 [facility] Comment on above: Performed By: #### L 500.4050, L501.9520, L300.3900, L100.0100 ####[facility] [address] [place], [address] Hematocrit (Bld) [Volume fraction] 31.9 % Low 40-54 [facility] Comment on above: Performed By: #### L 500.4050, L501.9520, L300.3900, L100.0100 ####[facility] [address] [place], [address] Hemoglobin (Bld) [Mass/Vol] 9.8 g/dL Low 13.0-16.5 [facility] Comment on above: Performed By: #### L 500.4050, L501.9520, L300.3900, L100.0100 ####[facility] [address] [place], [address] IG% 0.500 Normal 0.0-0.9 [facility] Comment on above: Result Comment: IG% - Immature Granulocytes (promyelocytes, myelocytes andmetamyelocytes) > 1% indicates that a LEFT SHIFT is Present. Performed By: #### L 500.4050, L501.9520, L300.3900, L100.0100 ####[facility] [address] [place], [address] Lymphocytes/100 WBC (Bld) 12.7 % Low 19-41 [facility] Comment on above: Performed By: #### L 500.4050, L501.9520, L300.3900, L100.0100 ####[facility] [address] [place], [address] MCH (RBC) [Entitic mass] 29.8 pg Normal 27.0-32.0 [facility] Comment on above: Performed By: #### L 500.4050, L501.9520, L300.3900, L100.0100 ####[facility] [address] [place], [address] MCHC (RBC) [Mass/Vol] 30.7 g/dL Low 32-36 [facility] Comment on above: Performed By: #### L 500.4050, L501.9520, L300.3900, L100.0100 ####[facility] [address] [place], [address] MCV (RBC) [Entitic vol] 97.0 fL High 80-94 [facility] Comment on above: Performed By: #### L 500.4050, L501.9520, L300.3900, L100.0100 ####[facility] [address] [place], [address] Monocytes/100 WBC (Bld) 9.6 % Normal 0-10 [facility] Comment on above: Performed By: #### L 500.4050, L501.9520, L300.3900, L100.0100 ####[facility] [address] [place], [address] Neutrophils/100 WBC (Bld) 76.7 % High 47-70 [facility] Comment on above: Performed By: #### L 500.4050, L501.9520, L300.3900, L100.0100 ####[facility] [address] [place], [address] Nucleated RBC (Bld) [#/Vol] 0 10*3/uL Normal 0-5 [facility] Comment on above: Performed By: #### L 500.4050, L501.9520, L300.3900, L100.0100 ####[facility] [address] [place], [address] Platelet mean volume (Bld) [Entitic vol] 11.1 fL Normal 6.2-12.0 [facility] Comment on above: Performed By: #### L 500.4050, L501.9520, L300.3900, L100.0100 ####[facility] [address] [place], [address] Platelets (Bld) [#/Vol] 238 10*3/uL Normal 150-450 [facility] Comment on above: Performed By: #### L 500.4050, L501.9520, L300.3900, L100.0100 ####[facility] [address] [place], [address] RBC (Bld) [#/Vol] 3.29 10*6/uL Low 4.6-6.2 [facility] Comment on above: Performed By: #### L 500.4050, L501.9520, L300.3900, L100.0100 ####[facility] [address] [place], [address] RDW SD 52.9 fl High 35.1-43.9 [facility] Comment on above: Performed By: #### L 500.4050, L501.9520, L300.3900, L100.0100 ####[facility] [address] [place], [address] WBC (Bld) [#/Vol] 12.2 10*3/uL High 4.4-11.0 [facility] Comment on above: Performed By: #### L 500.4050, L501.9520, L300.3900, L100.0100 ####[facility] [address] [place], [address] CRPon 04-15-2024 C-REACTIVE PROT 232.00 mg/L High 0.0-3.0 [facility] Comment on above: Order Comment: Comme nts: Add onto previous labs if possible Result Comment: C-Re active Protein (CRP) provides useful information for thediagnosis, therapy and monitoring of inflammatory processesand associated diseases. For the evaluation of Relative Riskfor Cardiovascular Disease, a High Sensitivity CRP (HSCRP)should be ordered. Performed By: #### L 501.6710, L101.9900 ####[facility] [address] [place], [address] Comprehensive Metabolic Prof ilon 04-15-2024 Albumin [Mass/Vol] 2.3 g/dL Low 3.2-5.0 [facility] Comment on above: Performed By: #### L 500.4050, L501.9520, L300.3900, L100.0100 ####[facility] [address] [place], [address] Albumin/Globulin [Mass ratio] 0.5 {ratio} Low 0.9-2.4 [facility] Comment on above: Performed By: #### L 500.4050, L501.9520, L300.3900, L100.0100 ####[facility] [address] [place], [address] ALK P 49 U/L Normal 45-117 [facility] Comment on above: Performed By: #### L 500.4050, L501.9520, L300.3900, L100.0100 ####[facility] [address] [place], [address] ALT [Catalytic activity/Vol] 13 U/L Low 16-61 [facility] Comment on above: Performed By: #### L 500.4050, L501.9520, L300.3900, L100.0100 ####[facility] [address] [place], [address] AST [Catalytic activity/Vol] 9 U/L Low 15-37 [facility] Comment on above: Performed By: #### L 500.4050, L501.9520, L300.3900, L100.0100 ####[facility] [address] [place], [address] Bilirubin [Mass/Vol] 0.50 mg/dL Normal 0.20-1.00 [facility] Comment on above: Result Comment: For patients on eltrombopag therapy, use of Dimension [place] TBIL is not recommended. Performed By: #### L 500.4050, L501.9520, L300.3900, L100.0100 ####[facility] [address] [place], [address] BUN/CRE 10.6 RATIO Normal 10-20 [facility] Comment on above: Performed By: #### L 500.4050, L501.9520, L300.3900, L100.0100 ####[facility] [address], [address] CA,Total 8.4 mg/dL Low 8.5-10.1 [facility] Comment on above: Performed By: #### L 500.4050, L501.9520, L300.3900, L100.0100 ####[facility] [address] [place], [address] Chloride [Moles/Vol] 97 mmol/L Low 98-107 [facility] Comment on above: Performed By: #### L 500.4050, L501.9520, L300.3900, L100.0100 ####[facility] [address] [place], [address] CO2 [Moles/Vol] 28.0 mmol/L Normal 21.0-32.0 [facility] Comment on above: Performed By: #### L 500.4050, L501.9520, L300.3900, L100.0100 ####[facility] [address] [place], [address] Creatinine [Mass/Vol] 3.79 mg/dL High 0.70-1.30 [facility] Comment on above: Result Comment: The validity of the calculated GFR GFRAA in patients over70 years has not been determined. Clinical correlation isessential. Performed By: #### L 500.4050, L501.9520, L300.3900, L100.0100 ####[facility] [address] [place], [address] ECRCL 16.15 ml/min Normal [facility] Comment on above: Performed By: #### L 500.4050, L501.9520, L300.3900, L100.0100 ####[facility] [address] [place], [address] EST GFR - AA 20 mL/min Low >60 [facility] Comment on above: Result Comment: Afri can [place]eg[place] GFR Calc Performed By: #### L 500.4050, L501.9520, L300.3900, L100.0100 ####[facility] [address] [place], [address] GAP 10 Normal 5-15 [facility] Comment on above: Performed By: #### L 500.4050, L501.9520, L300.3900, L100.0100 ####[facility] [address] [place], [address] GFR/1.73 sq M.predicted among non-blacks MDRD (S/P/Bld) [Vol rate/Area] 16 mL/min/{1.73_m2} Low >60 [facility] Comment on above: Result Comment: Non- GFR Calc Performed By: #### L 500.4050, L501.9520, L300.3900, L100.0100 ####[facility] [address] [place], [address] Globulin (S) [Mass/Vol] 4.7 g/dL High 2.2-4.2 [facility] Comment on above: Performed By: #### L 500.4050, L501.9520, L300.3900, L100.0100 ####[facility] [address] [place], [address] Glucose [Mass/Vol] 124 mg/dL High 74-106 [facility] Comment on above: Result Comment: Fast ing Glucose result from 100 to 125 mg/dLsuggests IMPAIRED HOMEOSTASIS per A.D.A. criteria. Performed By: #### L 500.4050, L501.9520, L300.3900, L100.0100 ####[facility] [address] [place], [address] Potassium [Moles/Vol] 3.8 mmol/L Normal 3.5-5.1 [facility] Comment on above: Performed By: #### L 500.4050, L501.9520, L300.3900, L100.0100 ####[facility] [address] [place], [address] Sodium [Moles/Vol] 135 mmol/L Low 136-145 [facility] Comment on above: Performed By: #### L 500.4050, L501.9520, L300.3900, L100.0100 ####[facility] [address] [place], [address] T PROT 7.0 g/dL Normal 6.4-8.2 [facility] Comment on above: Performed By: #### L 500.4050, L501.9520, L300.3900, L100.0100 ####[facility] [address] [place], [address] Urea nitrogen [Mass/Vol] 40 mg/dL High 7-18 [facility] Comment on above: Performed By: #### L 500.4050, L501.9520, L300.3900, L100.0100 ####[facility] [address] [place], [address] Erythrocyte Sed Rateon 04-15 SED RATE 68 mm/hr High 0-20 [facility] Comment on above: Order Comment: Comme nts: Add onto previous labs if possible Performed By: #### L 501.6710, L101.9900 ####[facility] [address] [place], [address] Gram Stainon 04-15-2024 GS Positive Normal [facility] Comment on above: Performed By: #### M 100.2000, M100.3000 ####[facility] [address] [place], [address] M8200.1075on 04-15-2024 M8200.1075 Pending MRSA PCR MRSA NEGATIVE STAPH. AUREUS PCR STAPH. AUREUS NEGATIVE Normal [facility] Comment on above: Performed By: #### M 8200.1075 ####[facility] [address] [place], [address] Prothrombin Time w/INRon INR Coag (PPP) [Relative time] 1.4 {INR} Normal [facility] Comment on above: Performed By: #### L 500.4050, L501.9520, L300.3900, L100.0100 ####[facility] [address] [place], [address] PT Coag (PPP) [Time] 16.7 s High 11.7-14.9 [facility] Comment on above: Performed By: #### L 500.4050, L501.9520, L300.3900, L100.0100 ####[facility] [address] [place], [address] Thyroid Stim Hormone (TSH)on 04-15-2024 TSH 0.665 uIU/mL Normal 0.358-3.740 [facility] Comment on above: Performed By: #### L 500.4050, L501.9520, L300.3900, L100.0100 ####[facility] [address] [place], [address] Ankle Brachial Indexon 04-14 Ankle Brachial Index Normal [facility] Bedside Glucoseon 04-14-2024 FINGERSTICK GLU 310 mg/dL High 74-106 [facility] Comment on above: Result Comment: FANG GEMENT OF PATIENT CARE PER NURSING PROTOCOL Performed By: #### L 501.080 ####[facility] [address] [place], [address] FINGERSTICK GLU 190 mg/dL High 74-106 [facility] Comment on above: Result Comment: FANG GEMENT OF PATIENT CARE PER NURSING PROTOCOL Performed By: #### L 501.080 ####[facility] [address] [place], [address] CBC W/Diff, Automatedon 03-24 Absolute Lymph 1.36 X10 3/uL Normal 0.83-4.51 [facility] Comment on above: Performed By: #### L 503.6005, L500.4050, L100.0100 ####[facility] [address] [place], [address] Absolute Neut 11.3 X10 3/uL High 2.0-7.7 [facility] Comment on above: Performed By: #### L 503.6005, L500.4050, L100.0100 ####[facility] [address] [place], [address] Basophils/100 WBC (Bld) 0.3 % Normal 0-1 [facility] Comment on above: Performed By: #### L 503.6005, L500.4050, L100.0100 ####[facility] [address] [place], [address] Eosinophils/100 WBC (Bld) 0.3 % Normal 0-5 [facility] Comment on above: Performed By: #### L 503.6005, L500.4050, L100.0100 ####[facility] [address] [place], [address] Erythrocyte distribution width (RBC) [Ratio] 15.1 % High 11.6-14.6 [facility] Comment on above: Performed By: #### L 503.6005, L500.4050, L100.0100 ####[facility] [address] [place], [address] Hematocrit (Bld) [Volume fraction] 35.3 % Low 40-54 [facility] Comment on above: Performed By: #### L 503.6005, L500.4050, L100.0100 ####[facility] [address] [place], [address] Hemoglobin (Bld) [Mass/Vol] 11.3 g/dL Low 13.0-16.5 [facility] Comment on above: Performed By: #### L 503.6005, L500.4050, L100.0100 ####[facility] [address] [place], [address] IG% 0.600 Normal 0.0-0.9 [facility] Comment on above: Result Comment: IG% - Immature Granulocytes (promyelocytes, myelocytes andmetamyelocytes) > 1% indicates that a LEFT SHIFT is Present. Performed By: #### L 503.6005, L500.4050, L100.0100 ####[facility] [address] [place], [address] Lymphocytes/100 WBC (Bld) 9.7 % Low 19-41 [facility] Comment on above: Performed By: #### L 503.6005, L500.4050, L100.0100 ####[facility] [address] [place], [address] MCH (RBC) [Entitic mass] 30.5 pg Normal 27.0-32.0 [facility] Comment on above: Performed By: #### L 503.6005, L500.4050, L100.0100 ####[facility] [address] [place], [address] MCHC (RBC) [Mass/Vol] 32.0 g/dL Normal 32-36 [facility] Comment on above: Performed By: #### L 503.6005, L500.4050, L100.0100 ####[facility] [address] [place], [address] MCV (RBC) [Entitic vol] 95.1 fL High 80-94 [facility] Comment on above: Performed By: #### L 503.6005, L500.4050, L100.0100 ####[facility] [address] [place], [address] Monocytes/100 WBC (Bld) 8.6 % Normal 0-10 [facility] Comment on above: Performed By: #### L 503.6005, L500.4050, L100.0100 ####[facility] [address] [place], [address] Neutrophils/100 WBC (Bld) 80.5 % High 47-70 [facility] Comment on above: Performed By: #### L 503.6005, L500.4050, L100.0100 ####[facility] [address] [place], [address] Nucleated RBC (Bld) [#/Vol] 0 10*3/uL Normal 0-5 [facility] Comment on above: Performed By: #### L 503.6005, L500.4050, L100.0100 ####[facility] [address] [place], [address] Platelet mean volume (Bld) [Entitic vol] 10.8 fL Normal 6.2-12.0 [facility] Comment on above: Performed By: #### L 503.6005, L500.4050, L100.0100 ####[facility] [address] [place], [address] Platelets (Bld) [#/Vol] 255 10*3/uL Normal 150-450 [facility] Comment on above: Performed By: #### L 503.6005, L500.4050, L100.0100 ####[facility] [address] [place], [address] RBC (Bld) [#/Vol] 3.71 10*6/uL Low 4.6-6.2 [facility] Comment on above: Performed By: #### L 503.6005, L500.4050, L100.0100 ####[facility] [address] [place], [address] RDW SD 52.1 fl High 35.1-43.9 [facility] Comment on above: Performed By: #### L 503.6005, L500.4050, L100.0100 ####[facility] [address] [place], [address] WBC (Bld) [#/Vol] 14.0 10*3/uL High 4.4-11.0 [facility] Comment on above: Performed By: #### L 503.6005, L500.4050, L100.0100 ####[facility] [address] [place], [address] CNOVon 04-14-2024 CNOV Normal [facility] CRPon 04-14-2024 C-REACTIVE PROT 267.00 mg/L High 0.0-3.0 [facility] Comment on above: Result Comment: C-Re active Protein (CRP) provides useful information for thediagnosis, therapy and monitoring of inflammatory processesand associated diseases. For the evaluation of Relative Riskfor Cardiovascular Disease, a High Sensitivity CRP (HSCRP)should be ordered. Performed By: #### L 101.9900, L501.6710 ####[facility] [address] [place], [address] Comprehensive Metabolic Prof ilon 04-14-2024 Albumin [Mass/Vol] 2.7 g/dL Low 3.2-5.0 [facility] Comment on above: Performed By: #### L 503.6005, L500.4050, L100.0100 ####[facility] [address] [place], [address] Albumin/Globulin [Mass ratio] 0.5 {ratio} Low 0.9-2.4 [facility] Comment on above: Performed By: #### L 503.6005, L500.4050, L100.0100 ####[facility] [address] [place], [address] ALK P 62 U/L Normal 45-117 [facility] Comment on above: Performed By: #### L 503.6005, L500.4050, L100.0100 ####[facility] [address] [place], [address] ALT [Catalytic activity/Vol] 11 U/L Low 16-61 [facility] Comment on above: Performed By: #### L 503.6005, L500.4050, L100.0100 ####[facility] [address] [place], [address] AST [Catalytic activity/Vol] 15 U/L Normal 15-37 [facility] Comment on above: Performed By: #### L 503.6005, L500.4050, L100.0100 ####[facility] [address] [place], [address] Bilirubin [Mass/Vol] 0.50 mg/dL Normal 0.20-1.00 [facility] Comment on above: Result Comment: For patients on eltrombopag therapy, use of Dimension [place] TBIL is not recommended. Performed By: #### L 503.6005, L500.4050, L100.0100 ####[facility] [address] [place], [address] BUN/CRE 9.5 RATIO Low 10-20 [facility] Comment on above: Performed By: #### L 503.6005, L500.4050, L100.0100 ####[facility] [address] [place], [address] CA,Total 8.6 mg/dL Normal 8.5-10.1 [facility] Comment on above: Performed By: #### L 503.6005, L500.4050, L100.0100 ####[facility] [address] [place], [address] Chloride [Moles/Vol] 96 mmol/L Low 98-107 [facility] Comment on above: Performed By: #### L 503.6005, L500.4050, L100.0100 ####[facility] [address] [place], [address] CO2 [Moles/Vol] 32.0 mmol/L Normal 21.0-32.0 [facility] Comment on above: Performed By: #### L 503.6005, L500.4050, L100.0100 ####[facility] [address] [place], [address] Creatinine [Mass/Vol] 2.84 mg/dL High 0.70-1.30 [facility] Comment on above: Result Comment: The validity of the calculated GFR GFRAA in patients over70 years has not been determined. Clinical correlation isessential. Performed By: #### L 503.6005, L500.4050, L100.0100 ####[facility] [address] [place], [address] ECRCL 21.22 ml/min Normal [facility] Comment on above: Performed By: #### L 503.6005, L500.4050, L100.0100 ####[facility] [address] [place], [address] EST GFR - AA 27 mL/min Low >60 [facility] Comment on above: Result Comment: Afri can Senegalese GFR Calc Performed By: #### L 503.6005, L500.4050, L100.0100 ####[facility] [address] [place], [address] GAP 8 Normal 5-15 [facility] Comment on above: Performed By: #### L 503.6005, L500.4050, L100.0100 ####[facility] [address] [place], [address] GFR/1.73 sq M.predicted among non-blacks MDRD (S/P/Bld) [Vol rate/Area] 23 mL/min/{1.73_m2} Low >60 [facility] Comment on above: Result Comment: Non- GFR Calc Performed By: #### L 503.6005, L500.4050, L100.0100 ####[facility] [address] [place], [address] Globulin (S) [Mass/Vol] 5.3 g/dL High 2.2-4.2 [facility] Comment on above: Performed By: #### L 503.6005, L500.4050, L100.0100 ####[facility] [address] [place], [address] Glucose [Mass/Vol] 130 mg/dL High 74-106 [facility] Comment on above: Result Comment: Fast ing Glucose result greater than or equal to 126 mg/dLsuggests DIABETES MELLITUS per A.D.A. criteria. Performed By: #### L 503.6005, L500.4050, L100.0100 ####[facility] [address] [place], [address] Potassium [Moles/Vol] 3.7 mmol/L Normal 3.5-5.1 [facility] Comment on above: Performed By: #### L 503.6005, L500.4050, L100.0100 ####[facility] [address] [place], [address] Sodium [Moles/Vol] 136 mmol/L Normal 136-145 [facility] Comment on above: Performed By: #### L 503.6005, L500.4050, L100.0100 ####[facility] [address] [place], [address] T PROT 8.0 g/dL Normal 6.4-8.2 [facility] Comment on above: Performed By: #### L 503.6005, L500.4050, L100.0100 ####[facility] [address] [place], [address] Urea nitrogen [Mass/Vol] 27 mg/dL High 7-18 [facility] Comment on above: Performed By: #### L 503.6005, L500.4050, L100.0100 ####[facility] [address] [place], [address] Emergency Department Summary on 04-14-2024 Emergency Department Summary Normal [facility] Erythrocyte Sed Rateon 04-14 SED RATE 87 mm/hr High 0-20 [facility] Comment on above: Performed By: #### L 101.9900, L501.6710 ####[facility] [address] [place], [address] Foot min 3 Viewson 4 Foot min 3 Views Normal [facility] H AND P Exam - Hospitaliston 04-14-2024 H&P Exam - Hospitalist Normal [facility] Lactic Acidon 04-14-2024 Lactate [Moles/Vol] 1.6 mmol/L Normal 0.4-1.9 [facility] Comment on above: Order Comment: Y Performed By: #### L 503.6005, L500.4050, L100.0100 ####[facility] [address] [place], [address] CNPNon 04-13-2024 CNPN Normal [facility] CNPNon 04-05-2024 CNPN Normal [facility] CNOVon 03-28-2024 CNOV Normal [facility] Comprehensive metabolic 2000 panelon 03-28-2024 Albumin [Mass/Vol] 3.2 g/dL Low 3.9-4.9 [facility] Comment on above: Order Comment: Speci men Type: BLOOD SPECIMENOrdering Facility: [facility] Address: [address] [place] [address] Performed By: #### 2 4323-8 ####[facility] LABCLIA [id number] [place] [address] [place] ALP [Catalytic activity/Vol] 65 U/L Normal 38-113 [facility] Comment on above: Order Comment: Speci men Type: BLOOD SPECIMENOrdering Facility: [facility] Address: [address] [place] [address] Performed By: #### 2 4323-8 ####[facility] LABCLIA [id number] [address] [address] [place] ALT [Catalytic activity/Vol] 10 U/L Normal 10-54 [facility] Comment on above: Order Comment: Speci men Type: BLOOD SPECIMENOrdering Facility: [facility] Address: [address] [place] [address] Performed By: #### 2 4323-8 ####[facility] LABCLIA [id number] [place] [address] [place] Anion gap [Moles/Vol] 12 mmol/L Normal 8-15 [facility] Comment on above: Order Comment: Speci men Type: BLOOD SPECIMENOrdering Facility: [facility] Address: [address] [place] [address] Performed By: #### 2 4323-8 ####[facility] LABCLIA [id number] [place] [address] [place] AST [Catalytic activity/Vol] 12 U/L Low 14-40 [facility] Comment on above: Order Comment: Speci men Type: BLOOD SPECIMENOrdering Facility: [facility] Address: [address] [place] [address] Performed By: #### 2 4323-8 ####[facility] LABCLIA [id number] [place] [address] [place] Bilirubin [Mass/Vol] 0.2 mg/dL Normal 0.2-1.3 [facility] Comment on above: Order Comment: Speci men Type: BLOOD SPECIMENOrdering Facility: [facility] Address: [address] [place] [address] Performed By: #### 2 4323-8 ####[facility] LABCLIA [id number] [place] [address] [place] Calcium [Mass/Vol] 8.9 mg/dL Normal 8.5-10.2 [facility] Comment on above: Order Comment: Speci men Type: BLOOD SPECIMENOrdering Facility: [facility] Address: [address] [place] [address] Performed By: #### 2 4323-8 ####[facility] LABCLIA [id number] [place] [address] [place] Chloride [Moles/Vol] 93 mmol/L Low 98-107 [facility] Comment on above: Order Comment: Speci men Type: BLOOD SPECIMENOrdering Facility: [facility] Address: [address] [place] [address] Performed By: #### 2 4323-8 ####[facility] LABCLIA [id number] [place] [address] [place] CO2 [Moles/Vol] 28 mmol/L Normal 22-30 [facility] Comment on above: Order Comment: Speci men Type: BLOOD SPECIMENOrdering Facility: [facility] Address: [address] [place] [address] Performed By: #### 2 4323-8 ####[facility] LABIA [id number] [place] [address] [place] Creatinine [Mass/Vol] 4.23 mg/dL High 0.73-1.22 [facility] Comment on above: Order Comment: Speci men Type: BLOOD SPECIMENOrdering Facility: [facility] Address: [address] [place] [address] Performed By: #### 2 4323-8 ####[facility] LABIA [id number] [place] [address] [place] Creatinine and Glomerular filtration rate.predicted panel (S/P/Bld) 13 mL/min/1.73m??? Low >=60 [facility] Comment on above: Order Comment: Speci men Type: BLOOD SPECIMENOrdering Facility: [facility] Address: [address] [place] [address] Result Comment: Tessa mated Glomerular Filtration Rate [...] actual GFR. Performed By: #### 2 4323-8 ####[facility] LABCLIA [id number] [place] [address] [place] Glucose [Mass/Vol] 371 mg/dL High 74-99 [facility] Comment on above: Order Comment: Speci men Type: BLOOD SPECIMENOrdering Facility: [facility] Address: [address] [place] [address] Result Comment: The [place] Diabetes Association (ADA) provides guidance for cutoff [...] Standards of Medical Care in Diabetes 2016, [place] Diabetes Association. Diabetes Care. 2016.39(Suppl 1). Performed By: #### 2 4323-8 ####[facility] LABCLIA [id number] [place] [address] [place] Potassium [Moles/Vol] 5.0 mmol/L Normal 3.7-5.1 [facility] Comment on above: Order Comment: Speci men Type: BLOOD SPECIMENOrdering Facility: [facility] Address: [address] [place] [address] Performed By: #### 2 4323-8 ####[facility] LABCLIA [id number] [place] [address] [place] Protein [Mass/Vol] 6.5 g/dL Normal 6.3-8.0 [facility] Comment on above: Order Comment: Speci men Type: BLOOD SPECIMENOrdering Facility: [facility] Address: [address] [place] [address] Performed By: #### 2 4323-8 ####[facility] LABCLIA [id number] [place] [address] [place] Sodium [Moles/Vol] 133 mmol/L Low 136-144 [facility] Comment on above: Order Comment: Speci men Type: BLOOD SPECIMENOrdering Facility: [facility] Address: [address] [place] [address] Performed By: #### 2 4323-8 ####[facility] LABCLIA [id number] [address] [address] [place] Urea nitrogen [Mass/Vol] 37 mg/dL High 9-24 [facility] Comment on above: Order Comment: Speci men Type: BLOOD SPECIMENOrdering Facility: [facility] Address: [address] [place] [address] Performed By: #### 2 4323-8 ####[facility] LABIA [id number] [place] [address] [place] HbA1c (Bld)on 03-28-2024 Average glucose Estimated from glycated hemoglobin (Bld) [Mass/Vol] 206 mg/dL Normal [facility] Comment on above: Order Comment: Speci men Type: BLOOD SPECIMENOrdering Facility: [facility] Address: [address] [place] [address] Result Comment: eAG: (Estimated average glucose) is a calculated value from HgbA1c and is sales account representative of the average blood glucose level in the last 2-3 month period. Performed By: #### 5 5454-3 ####[facility] LABIA [id number] [place] [address] [place] HbA1c (Bld) [Mass fraction] 8.8 % High 4.3-5.6 [facility] Comment on above: Order Comment: Speci men Type: BLOOD SPECIMENOrdering Facility: [facility] Address: [address] [place] [address] Result Comment: [place] Diabetes Association guidelines indicate that patients with HgbA1c in the range 5.7-6.4% are at increased risk for development of diabetes, and intervention by lifestyle modification may be beneficial. HgbA1c greater or equal to 6.5% is considered diagnostic of diabetes. Performed By: #### 5 5454-3 ####[facility] LABCLIA [id number] [place] [id number] [place] CNOVon 01-06-2024 CNOV Normal [facility] Fox KORon 09-08-2023 Potassium [Moles/Vol] 3.7 mmol/L Normal 3.5-5.0 [facility] Comment on above: Performed By: #### K OR #### [facility] [address] [place] [address] LABORATORYOrdered By: Miguelina Ramirez on 09-08-2023 Blood Glucose Testing Reason Routine (09/08/23 2:30 PM) [facility] Work Phone: Glucose [Mass/Vol] 111 mg/dL Normal 82 - 115 mg/dL [facility] Work Phone: LABORATORYOrdered By: Nelli Gar on 09-08-2023 Potassium [Moles/Vol] 3.7 mmol/L Normal 3.5 - 5.0 mEq/L [facility] SS LABORATORYOrdered By: Kailey Sanchez on 09-08-2023 Glucose [Mass/Vol] 147 mg/dL High 82 - 115 mg/dL [facility] Work Phone: HEMOGLOBIN A1C (POC)on 12-06 HbA1c (Bld) [Mass fraction] 8.1 % Abnormal 4.2 - 5.6 % [facility] HEMOGLOBIN A1C (POC)on 09-06 HbA1c (Bld) [Mass fraction] 8.4 % Abnormal 4.2 - 5.6 % [facility] Comprehensive metabolic 2000 panelon 03-06-2022 Albumin [Mass/Vol] 3.9 g/dL 3.9 - 4.9 g/dL [facility] ALP [Catalytic activity/Vol] 56 U/L 38 - 113 U/L [facility] ALT [Catalytic activity/Vol] 17 U/L 10 - 54 U/L [facility] Anion gap [Moles/Vol] 13 mmol/L 9 - 18 mmol/L [facility] AST [Catalytic activity/Vol] 13 U/L Low 14 - 40 U/L [facility] Bilirubin [Mass/Vol] 0.4 mg/dL 0.2 - 1 .3 mg/dL [facility] Calcium [Mass/Vol] 9.1 mg/dL 8.5 - 10. 2 mg/dL [facility] Chloride [Moles/Vol] 95 mmol/L Low 97 - 10 5 mmol/L [facility] CO2 [Moles/Vol] 30 mmol/L 22 - 30 mmol/L [facility] Creatinine [Mass/Vol] 4.13 mg/dL High 0.73 - 1.22 mg/dL [facility] Estimated Glomerular Filtration Rate 14 mL/min/1.73m Low >=60 mL/min/1.73 m [facility] Glucose [Mass/Vol] 239 mg/dL High 74 - 99 mg/dL [facility] Potassium [Moles/Vol] 4.9 mmol/L 3.7 - 5.1 mmol/L [facility] Protein [Mass/Vol] 7.2 g/dL 6.3 - 8.0 g/dL [facility] Sodium [Moles/Vol] 138 mmol/L 136 - 144 mmol/L [facility] Urea nitrogen [Mass/Vol] 49 mg/dL High 9 - 24 mg/dL [facility] LIPID PANEL, NONFASTINGon Cholesterol [Mass/Vol] 146 mg/dL <200 mg/dL [facility] HDL Cholesterol, Nonfasting 46 mg/dL >39 mg/dL [facility] LDL Cholesterol, Nonfasting 89 mg/dL <100 mg/dL [facility] LDL/HDL Ratio, Nonfasting 1.93 mg/dL <2.54 mg/dL [facility] Non HDL Cholesterol, Nonfasting 100 mg/dL <130 mg/dL [facility] Total Chol/HDL Ratio, Nonfasting 3.17 mg/dL <5.10 mg/dL [facility] Triglycerides, Nonfasting 55 mg/dL <150 mg/dL [facility] VLDL Cholesterol, Nonfasting 11 mg/dL <30 mg/dL [facility] HbA1c (Bld)on 03-05-2022 Average glucose Estimated from glycated hemoglobin (Bld) [Mass/Vol] 209 mg/dL [facility] HbA1c (Bld) [Mass fraction] 8.9 % High 4.3 - 5.6 % [facility] Basophil percentageon 2021 Chloride [Moles/Vol] 103 mmol/L 98-107 [facility] Work Phone: [phone] Glucose [Mass/Vol] 263 mg/dL 74-106 [facility] Work Phone: [phone] Comment on above: Glucose result great er than or equal to 200 mg/dLsuggests DIABETES MELLITUS per A.D.A. criteria. Potassium [Moles/Vol] 4.3 mmol/L 3.5-5.1 [facility] Work Phone: [phone] Sodium [Moles/Vol] 138 mmol/L 136-145 [facility] Work Phone: [phone] WBC (Bld) [#/Vol] 8.1 10*3/uL 4.4-11.0 [facility] Work Phone: [phone] Blood erythrocytes count (nu mber/volume)on 11-06-2021 RBC (Bld) [#/Vol] 3.75 10*6/uL 4.6-6.2 [facility]: [phone] Blood hemoglobin measurement (mass/volume)on 11-06-2021 Hemoglobin (Bld) [Mass/Vol] 11.4 g/dL 13.0-16.5 [facility] Work Phone: [phone] Blood platelet mean volumeon 11-06-2021 Platelet mean volume (Bld) [Entitic vol] 11.2 fL 6.2-12.0 [facility] Work Phone: [phone] Determination of erythrocyte mean corpuscular volume (MCV)on 11-06-2021 MCV (RBC) [Entitic vol] 94.9 fL 80-94 [facility] Work Phone: [phone] Hematocrit Auto (Bld) [Volum e fraction]on 11-06-2021 Hematocrit (Bld) [Volume fraction] 35.6 % 40-54 [facility] Work Phone: [phone] Laboratory - Chemistry and C hemistry - challengeon 11-06-2021 CO2 [Moles/Vol] 30.0 mmol/L 21.0-32.0 [facility] Work Phone: [phone] Urea nitrogen/Creatinine [Mass ratio] 12.6 mg/mg 10-20 [facility] Work Phone: [phone] Laboratory - Hematology and Cell countson 11-06-2021 Erythrocyte distribution width (RBC) [Entitic vol] 43.0 fL 35.1-43.9 [facility] Work Phone: [phone] Erythrocyte distribution width (RBC) [Ratio] 12.4 % 11.6-14.6 [facility] Work Phone: [phone] MCH (RBC) [Entitic mass] 30.4 pg 27.0-32.0 [facility] Work Phone: [phone] MCHC Auto (RBC) [Mass/Vol]on 11-06-2021 MCHC (RBC) [Mass/Vol] 32.0 g/dL 32-36 [facility] Work Phone: No Panel Informationon 11-06 Estimated Creatinine Clearance Calc 12.37 ml/min [facility] Work Phone: [phone] Estimated GFR (MDRD) Amer 17 mL/min >60 [facility] Work Phone: Comment on above: GFR Calc Estimated GFR (MDRD) Non-Af Amer 14 mL/min >60 [facility] Work Phone: Comment on above: Non- GFR Calc Platelets bldon 11-06-2021 Platelets (Bld) [#/Vol] 160 10*3/uL 150-450 [facility] Work Phone: [phone] Serum or plasma calcium lilli urement (mass/volume)on 11-06-2021 Calcium [Mass/Vol] 9.0 mg/dL 8.5-10.1 [facility] Work Phone: [phone] Serum or plasma creatinine m easurement (mass/volume)on 11-06-2021 Creatinine [Mass/Vol] 4.30 mg/dL 0.70-1.30 [facility] Work Phone: [phone] Comment on above: The validity of the calculated GFR & GFRAA in patients over 70 years has not been determined. Clinical correlation is essential. Serum or plasma urea nitroge n measurement (mass/volume)on 11-06-2021 Urea nitrogen [Mass/Vol] 54 mg/dL 7-18 [facility] Work Phone: Thin prep Papanicolaou smear with manual screeningon 11-06-2021 Thin prep Papanicolaou smear with manual screening 5 15 [facility] Work Phone: XR Foot - bilateral AP and L ateral and obliqueon 03-04-2021 IMPRESSION: No acute bony finding. Plantar spurs Greens Keeper: NICHELLE Transcribe Date/Time: Mar 04 2021 12:13P Dictated by : FERNANDO JANE MD This examination was interpreted and the report reviewed and electronically signed by: FERNANDO JANE MD on Mar 04 2021 12:15PM [facility] DIVISION OF [...] these nonweightbearing views DIVISION OF RADIOLOGY Provider, [facility] - 03/04/2021 * * *Final [...] IMPRESSION: No acute bony finding. Plantar spurs Greens Keeper: NICHELLE Transcribe Date/Time: Mar 04 2021 12:13P Dictated by : FERNANDO JANE MD This examination was interpreted and the report reviewed and electronically signed by: FERNANDO JANE MD on Mar 04 2021 12:15PM EST [facility] Radiology Study observation (narrative) [facility] XR Foot - bilateral AP and L ateral and obliqueOrdered By: Ccf Provider on 03-04-2021 [facility] Office Visiton 10-27-2016 Documentation of current medications (procedure) Done Invalid Interpretation Code [employer] Phone: [phone] Fall risk assessment No Invalid Interpretation Code [employer] Work Phone: [phone] Protein mass conc Done [employer] Work Phone: [phone] Replaced Document: Eileen Desiree MAURA Observationson 10-27-2016 EKG QRS axis -23 deg [employer] Work Phone: [phone] electrocardiogram interpretation Possible atrial fibrillation - Nonspecific T-abnormality. ABNORMAL Invalid Interpretation Code [employer] Work Phone: [phone] GE use only - for [employer] import when terms are not otherwise specified 431 ms Invalid Interpretation Code [employer] Phone: [phone] Interpretation Possible atrial fibrillation - Nonspecific T-abnormality. ABNORMAL [employer] Work Phone: P [place] 1 deg [employer] Work Phone: P wave axis, electrocardiogram 1 deg Invalid Interpretation Code [employer] Work Phone: OK Interval 0 ms [employer] Work Phone: [phone] OK interval, electrocardiogram 0 ms Invalid Interpretation Code [employer] Work Phone: Pulse (Heart Rate) 69 /min Invalid Interpretation Code [employer] Work Phone: QRS axis, electrocardiogram -23 deg Invalid Interpretation Code [employer] Work Phone: QRS Duration 114 ms [facility] Work Phone: [phone] QRS duration, electrocardiogram 114 ms Invalid Interpretation Code [facility] Work Phone: [phone] QT Interval new path ms [facility] Work Phone: [phone] QT interval, electrocardiogram new path ms Invalid Interpretation Code [facility] Work Phone: [phone] QTc Liriano 431 ms [facility] Work Phone: [phone] T [place] 90 deg [facility] Work Phone: [phone] T wave axis, electrocardiogram 90 deg Invalid Interpretation Code [facility] Work Phone: [phone] Clinical Lists Update: 10-26-2016 Tobacco smoking status NHIS Never smoker [facility] Work Phone: [phone] Tobacco use CPHS Never smoker Invalid Interpretation Code [facility] Work Phone: [phone] Clinical Lists Update: 10-14-2016 Anion gap 14 mmol/L Invalid Interpretation Code [facility] Work Phone: [phone] Anion gap [Moles/Vol] 14 mmol/L [facility] Work Phone: [phone] Calcium 9.8 mg/dL Invalid Interpretation Code [facility] Work Phone: [phone] Chloride 97 mmol/L Invalid Interpretation Code [facility] Work Phone: [phone] CO2 25 mmol/L Invalid Interpretation Code [facility] Work Phone: [phone] CO2 (BldV) [Partial pressure] 25 mmol/L [facility] Work Phone: [phone] Creatinine 1.69 mg/dL High [facility] Work Phone: [phone] Glucose 264 mg/dL High [facility] Work Phone: [phone] Glucose [Mass/Vol] 264 mg/dL High [facility] Work Phone: [phone] Potassium 4.5 mmol/L Invalid Interpretation Code [facility] Work Phone: [phone] Sodium 136 mmol/L Invalid Interpretation Code [facility] Work Phone: [phone] Thyroid stimulating hormone (TSH) 1.29 u[iU]/mL Invalid Interpretation Code [facility] Work Phone: [phone] Urea nitrogen 21 mg/dL Invalid Interpretation Code [facility] Work Phone: [phone] 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 Cholesterol 216 mg/dL Invalid Interpretation Code [facility] Work Phone: [phone] HDL Cholesterol 46 mg/dL Invalid Interpretation Code [facility] Work Phone: [phone] LDL Cholesterol 129 mg/dL Invalid Interpretation Code [facility] Work Phone: [phone] Triglyceride 206 mg/dL Invalid Interpretation Code [facility] Work Phone: [phone] Vital Signs Date Time Vital Sign Value Performing Clinician Facility 11-27-2024 07:37-0400 SaO2% (BldA) [Mass fraction] 98 % HUSAM YAN [facility] Comment on above: Order Comment: Specimen Type: ARTERIAL B LOOD SPECIMENOrdering Facility: [facility] Address: [address] [place] [address] Performed By: #### A LLBG ####[facility] [id number] [address] STATES OF [facility] 11-26-2024 21:30-0400 SaO2% (BldA) [Mass fraction] 97 % HUSAM YAN [facility] Comment on above: Order Comment: Specimen Type: ARTERIAL B LOOD SPECIMENOrdering Facility: [facility] Address: [address] [place] [address] Performed By: #### A LLBG ####[facility] LABIA [id number] [address] OF [facility] 11-26-2024 18:06-0400 SaO2% (BldA) [Mass fraction] 99 % HUSAM YAN [facility] Comment on above: Order Comment: Specimen Type: ARTERIAL B LOOD SPECIMENOrdering Facility: [facility] Address: [address] [place] [address] Performed By: #### A LLBG ####[facility] LABCLIA [id number] [place] [id number] [place] 11-26-2024 13:47-0400 SaO2% (BldA) [Mass fraction] 97 % HUSAM YAN [facility] Comment on above: Order Comment: Specimen Type: ARTERIAL B LOOD SPECIMENOrdering Facility: [facility] Address: [address] [place] [address] Performed By: #### A LLMG ####[facility] LABIA [id number] [place] [id number] [place] 11-26-2024 07:36-0400 SaO2% (BldA) [Mass fraction] 99 % HUSAM YAN [facility] Comment on above: Order Comment: Specimen Type: ARTERIAL B LOOD SPECIMENOrdering Facility: [facility] Address: [address] [place] [address] Performed By: #### A LLBG ####[facility] [id number] [place] [id number] [place] 11-26-2024 00:22-0400 SaO2% (BldA) [Mass fraction] 97 % HUSAM YAN [facility] Comment on above: Order Comment: Specimen Type: ARTERIAL B LOOD SPECIMENOrdering Facility: [facility] Address: [address] [place] [address] Performed By: #### A LLBG ####[facility] LABIA [id number] [place] [id number] [place] 11-25-2024 20:35-0400 SaO2% (BldA) [Mass fraction] 98 % HUSAM YAN [facility] Comment on above: Order Comment: Specimen Type: ARTERIAL B LOOD SPECIMENOrdering Facility: [facility] Address: [address] [place] [address] Performed By: #### A LLBG ####[facility] LABIA [id number] [address] [address] [place] 11-25-2024 15:08-0400 SaO2% (BldA) [Mass fraction] 97 % HUSAM YAN [facility] Comment on above: Order Comment: Specimen Type: ARTERIAL B LOOD SPECIMENOrdering Facility: [facility] Address: [address] [place], [place] [address] Performed By: #### A LLBG ####[facility] LABCLIA [id number] [place] [id number] [place] 11-25-2024 11:07-0400 SaO2% (BldA) [Mass fraction] 99 % HUSAM YAN [facility] Comment on above: Order Comment: Specimen Type: ARTERIAL B LOOD SPECIMENOrdering Facility: [facility] Address: [address] [place] [address] Performed By: #### A LLBG ####[facility] LABIA [id number] [place] [id number] [place] 11-25-2024 08:20-0400 SaO2% (BldA) [Mass fraction] 97 % HUSAM YAN [facility] Comment on above: Order Comment: Specimen Type: ARTERIAL B LOOD SPECIMENOrdering Facility: [facility] Address: [address] [place], [place] [address] Performed By: #### A LLBG ####[facility] LABIA [id number] [place] [id number] [place] 11-25-2024 00:43-0400 SaO2% (BldA) [Mass fraction] 92 % HUSAM YAN [facility] Comment on above: Order Comment: Specimen Type: ARTERIAL B LOOD SPECIMENOrdering Facility: [facility] Address: [address] [place], [place] [address] Performed By: #### A LLBG ####[facility] LABIA [id number] [place] [id number] [facility] 11-24-2024 16:34-0400 SaO2% (BldA) [Mass fraction] 94 % HUSAM YAN [facility] Comment on above: Order Comment: Specimen Type: ARTERIAL B LOOD SPECIMENOrdering Facility: [facility] Address: [address] [place], [place] [address] Performed By: #### A LLBG ####[facility] LABCLIA [id number] [address] [address] [facility] 11-24-2024 08:23-0400 SaO2% (BldA) [Mass fraction] 96 % HUSAM YAN [facility] Comment on above: Order Comment: Specimen Type: ARTERIAL B LOOD SPECIMENOrdering Facility: [facility] Address: [address] [place], [place] [address] Performed By: #### A LLBG ####[facility] LABCLIA [id number] [place] [id number] [facility] 11-24-2024 06:44-0400 SaO2% (BldA) [Mass fraction] 97 % HUSAM YAN [facility] Comment on above: Order Comment: Specimen Type: ARTERIAL B LOOD SPECIMENOrdering Facility: [facility] Address: [address] [place], [place] [address] Performed By: #### A LLBG ####[facility] LABIA [id number] [place] [id number] [facility] 11-24-2024 00:29-0400 SaO2% (BldA) [Mass fraction] 97 % HUSAM YAN [facility] Comment on above: Order Comment: Specimen Type: ARTERIAL B LOOD SPECIMENOrdering Facility: [facility] Address: [address] [place], [place] [address] Performed By: #### A LLBG ####[facility] LABIA [id number] [address] [address] [facility] 11-23-2024 19:51-0400 SaO2% (BldA) [Mass fraction] 96 % Dr. Nando Wiggins MD Work Phone: [facility] Comment on above: Order Comment: Specimen Type: ARTERIAL B LOOD SPECIMENOrdering Facility: [facility] Address: [address] [place] [address] Performed By: #### A LLBG ####[facility] LABCLIA [id number] [address] STATES [place] [facility] 11-23-2024 14:00-0400 Diastolic blood pressure 55 mm[Hg] Dr. Nando Wiggins MD Work Phone: [facility] 11-23-2024 14:00-0400 Heart rate 30 /min Dr. Nando Wiggins MD Work Phone: [facility] 11-23-2024 14:00-0400 Respiratory rate 18 /min Dr. Nadno Wiggins MD Work Phone: [facility] 11-23-2024 14:00-0400 Systolic blood pressure 120 mm[Hg] Dr. Nando Wiggins MD Work Phone: [facility] 11-22-2024 21:07-0400 Body temperature 97.8 [degF] Dr. Nando Wiggins MD Work Phone: [facility] 11-22-2024 08:46-0400 Body height 170.[address] Nando Wiggins MD Work Phone: [facility] 11-22-2024 08:46-0400 Body mass index (BMI) [Ratio] 34.7 kg/m2 Dr. Nando Wiggins MD Work Phone: [facility] 11-22-2024 08:46-0400 Body weight 100.[address] Nando Wiggins MD Work Phone: [facility] 11-09-2024 03:00-0400 Diastolic blood pressure 52 mm[Hg] Dr. Nando Wiggins MD Work Phone: [facility] 11-09-2024 03:00-0400 Heart rate 52 /min Dr. Nando Wiggins MD Work Phone: [facility] 11-09-2024 03:00-0400 SaO2% (BldA) [Mass fraction] 96 % Dr. Nando Wiggins MD Work Phone: [facility] 11-09-2024 03:00-0400 Systolic blood pressure 126 mm[Hg] Dr. Nando Wiggins MD Work Phone: [facility] 11-08-2024 22:11-0400 Body temperature 97.6 [degF] Dr. Nando Wiggins MD Work Phone: [facility] 11-08-2024 22:11-0400 Respiratory rate 18 /min Dr. Nando Wiggins MD Work Phone: [facility] 11-08-2024 19:36-0400 Body height 170.[address] Nando Wiggins MD Work Phone: [facility] 11-08-2024 19:36-0400 Body mass index (BMI) [Ratio] 32.5 kg/m2 Dr. Nando Wiggins MD Work Phone: [facility] 11-08-2024 19:36-0400 Body weight 94.[address] Nando Wiggins MD Work Phone: [facility] 10-29-2024 06:52-0400 Body mass index (BMI) [Ratio] 32.5 kg/m2 Dr. Nando Wiggins MD Work Phone: [facility] 10-29-2024 06:52-0400 Body weight 94.[address] Nando Wiggins MD Work Phone: [facility] 10-29-2024 06:52-0400 Diastolic blood pressure 65 mm[Hg] Dr. Nando Wiggins MD Work Phone: [facility] 10-29-2024 06:52-0400 Heart rate 54 /min Dr. Nando Wiggins MD Work Phone: [facility] 10-29-2024 06:52-0400 Respiratory rate 18 /min Dr. Nando Wiggins MD Work Phone: [facility] 10-29-2024 06:52-0400 SaO2% (BldA) [Mass fraction] 92 % Dr. Nando Wiggins MD Work Phone: [facility] 10-29-2024 06:52-0400 Systolic blood pressure 129 mm[Hg] Dr. Nando Wiggins MD Work Phone: [facility] 10-17-2024 10:25-0400 Body temperature 98.6 [degF] Dr. Jean Yan MD Work Phone: 7(063)747-342371 [place] [address] 10-17-2024 10:25-0400 Diastolic blood pressure 72 mm[Hg] Dr. Jean Yan MD Work Phone: 4(055)740-537371 [place] [address] 10-17-2024 10:25-0400 Heart rate 56 /min Dr. Jean Yan MD Work Phone: 1(292)022-889071 [place] [address] 10-17-2024 10:25-0400 Respiratory rate 16 /min Dr. Jean Yan MD Work Phone: [facility] 10-17-2024 10:25-0400 SaO2% (BldA) [Mass fraction] 93 % Dr. Jean Yan MD Work Phone: [facility] 10-17-2024 10:25-0400 Systolic blood pressure 135 mm[Hg] Dr. Jean Yan MD Work Phone: [facility] 10-03-2024 09:08-0400 Body temperature 98 [degF] Dr. Jean Yan MD Work Phone: 1(946)342-338307 [place] [address] 10-03-2024 09:08-0400 Diastolic blood pressure 54 mm[Hg] Dr. Jean Yan MD Work Phone: 8(927)791-794907 [place] [address] 10-03-2024 09:08-0400 Heart rate 48 /min Dr. Jean Yan MD Work Phone: 7(465)555-863707 [place] [address] 10-03-2024 09:08-0400 Respiratory rate 14 /min Dr. Jean Yan MD Work Phone: 7(920)062-274507 [place] [address] 10-03-2024 09:08-0400 SaO2% (BldA) [Mass fraction] 94 % Dr. Jean Yan MD Work Phone: 6(724)113-014407 [place] [address] 10-03-2024 09:08-0400 Systolic blood pressure 132 mm[Hg] Dr. Jean Yan MD Work Phone: 5(205)401-466907 [place] [address] 09-24-2024 10:09-0400 Body mass index (BMI) [Ratio] 31.9 kg/m2 Dr. Jean Yan MD Work Phone: 4(005)099-125407 [place] [address] 09-24-2024 10:09-0400 Body temperature 96 [degF] Dr. Jean Yan MD Work Phone: 6(045)997-133407 [place] [address] 09-24-2024 10:09-0400 Diastolic blood pressure 40 mm[Hg] Dr. Jean Yan MD Work Phone: 7(478)527-747007 [place] [address] 09-24-2024 10:09-0400 Heart rate 44 /min Dr. Jean Yan MD Work Phone: 6(167)753-696107 [place] [address] 09-24-2024 10:09-0400 Respiratory rate 16 /min Dr. Jean Yan MD Work Phone: 3(478)271-264907 [place] [address] 09-24-2024 10:09-0400 Systolic blood pressure 121 mm[Hg] Dr. Jean Yan MD Work Phone: 3(194)767-513807 [place] [address] 09-20-2024 00:41-0400 Body weight 92.[address] Jean Yan MD Work Phone: 1(439)726-654307 [place] [address] 09-04-2024 12:16-0400 Body mass index (BMI) [Ratio] 29.9 kg/m2 Dr. Jean Yan MD Work Phone: 8(272)533-915707 [place] [address] 09-04-2024 12:16-0400 Body temperature 97.2 [degF] Dr. Jean Yna MD Work Phone: 2(798)107-716907 [place] [address] 09-04-2024 12:16-0400 Body weight 86.[address] Jean Yan MD Work Phone: 7(802)938-143007 [place] [address] 09-04-2024 12:16-0400 Diastolic blood pressure 59 mm[Hg] Dr. Jean Yan MD Work Phone: 1(882)434-563007 [place] [address] 09-04-2024 12:16-0400 Heart rate 53 /min Dr. Jean Yan MD Work Phone: 6(953)569-482307 [place] [address] 09-04-2024 12:16-0400 Respiratory rate 14 /min Dr. Jean Yan MD Work Phone: 4(310)122-389207 [place] [address] 09-04-2024 12:16-0400 SaO2% (BldA) [Mass fraction] 96 % Dr. Jean Yan MD Work Phone: 1(457)697-694707 [place] [address] 09-04-2024 12:16-0400 Systolic blood pressure 108 mm[Hg] Dr. Jean Yan MD Work Phone: 5(673)885-202207 [place] [address] 09-03-2024 14:19-0400 Body height 170.[address] Jean Yan MD Work Phone: 2(815)255-844807 [place] [address] 08-30-2024 21:37-0400 Inhaled oxygen flow rate 2 L/min Dr. Jean Yan MD Work Phone: 7(413)838-075407 [place] [address] 08-27-2024 08:54-0400 Body mass index (BMI) [Ratio] 31.9 kg/m2 Dr. Jean Yan MD Work Phone: 1(160)912-961807 [place] [address] 08-27-2024 08:54-0400 Diastolic blood pressure 61 mm[Hg] Dr. Jean Yan MD Work Phone: 0(573)035-326107 [place] [address] 08-27-2024 08:54-0400 Heart rate 66 /min Dr. Jean Yan MD Work Phone: 0(553)095-034207 [place] [address] 08-27-2024 08:54-0400 Respiratory rate 16 /min Dr. Jean Yan MD Work Phone: 1(277)766-345707 [place] [address] 08-27-2024 08:54-0400 Systolic blood pressure 100 mm[Hg] Dr. Jean Yan MD Work Phone: 2(015)528-450707 [place] [address] 08-21-2024 00:56-0400 Body temperature 97.4 [degF] Dr. Jean Yan MD Work Phone: 7(483)992-900107 [place] [address] 08-21-2024 00:56-0400 Body weight 92.[address] Jean Yan MD Work Phone: 3(850)576-865907 [place] [address] 08-20-2024 10:36-0400 Body mass index (BMI) [Ratio] 31.9 kg/m2 Dr. Jean Yan MD Work Phone: 3(255)559-438007 [place] [address] 08-20-2024 10:36-0400 Body temperature 97.4 [degF] Dr. Jean Yan MD Work Phone: 3(971)096-693407 [place] [address] 08-20-2024 10:36-0400 Diastolic blood pressure 39 mm[Hg] Dr. Jean Yan MD Work Phone: 9(634)076-528607 [place] [address] 08-20-2024 10:36-0400 Heart rate 42 /min Dr. Jean Yan MD Work Phone: 4(726)684-051307 [place] [address] 08-20-2024 10:36-0400 Respiratory rate 16 /min Dr. Jean Yan MD Work Phone: 5(288)622-585807 [place] [address] 08-20-2024 10:36-0400 Systolic blood pressure 123 mm[Hg] Dr. Jean Yan MD Work Phone: 4(745)492-952807 [place] [address] 08-01-2024 19:00-0400 Diastolic blood pressure 46 mm[Hg] Dr. Jean Yan MD Work Phone: 5(361)223-802907 [place] [address] 08-01-2024 19:00-0400 Heart rate 47 /min Dr. Jean Yan MD Work Phone: 9(079)001-612607 [place] [address] 08-01-2024 19:00-0400 Respiratory rate 18 /min Dr. Jean Yan MD Work Phone: 4(834)375-791007 [place] [address] 08-01-2024 19:00-0400 SaO2% (BldA) [Mass fraction] 98 % Dr. Jean Yan MD Work Phone: 0(162)730-713407 [place] [address] 08-01-2024 19:00-0400 Systolic blood pressure 113 mm[Hg] Dr. Jean Yan MD Work Phone: 8(607)031-440707 [place] [address] 08-01-2024 15:00-0400 Body temperature 98.1 [degF] Dr. Jean Yan MD Work Phone: 7(791)314-646407 [place] [address] 07-21-2024 02:32-0500 Body weight 92.[address] Jean Yan MD Work Phone: 8(394)867-586307 [place] [address] 07-20-2024 20:26-0500 Body temperature 98.1 [degF] Dr. Jean Yan MD Work Phone: 0(358)458-842807 [place] [address] 07-20-2024 20:26-0500 Diastolic blood pressure 47 mm[Hg] Dr. Jean Yan MD Work Phone: 9(858)639-188507 [place] [address] 07-20-2024 20:26-0500 Heart rate 56 /min Dr. Jean Yan MD Work Phone: 3(331)618-433307 [place] [address] 07-20-2024 20:26-0500 Respiratory rate 18 /min Dr. Jean Yan MD Work Phone: 3(017)188-648507 [place] [address] 07-20-2024 20:26-0500 SaO2% (BldA) [Mass fraction] 97 % Dr. Jean Yan MD Work Phone: 1(168)597-222307 [place] [address] 07-20-2024 20:26-0500 Systolic blood pressure 143 mm[Hg] Dr. Jean Yan MD Work Phone: 7(907)225-490407 [place] [address] 07-20-2024 05:46-0500 Body mass index (BMI) [Ratio] 31.8 kg/m2 Dr. Jean Yan MD Work Phone: 9(020)638-158307 [place] [address] 07-20-2024 05:46-0500 Body weight 92.[address] Jean Yan MD Work Phone: 0(833)368-761607 [place] [address] 07-16-2024 15:18-0500 Inhaled oxygen flow rate 2 L/min Dr. Jean Yan MD Work Phone: 0(498)668-800507 [place] [address] 07-11-2024 10:27-0500 Body mass index (BMI) [Ratio] 31.9 kg/m2 Dr. Jean Yan MD Work Phone: 3(972)999-275607 [place] [address] 07-11-2024 10:27-0500 Body temperature 96.7 [degF] Dr. Jean Yan MD Work Phone: 8(444)272-580107 [place] [address] 07-11-2024 10:27-0500 Diastolic blood pressure 45 mm[Hg] Dr. Jean Yan MD Work Phone: 3(552)419-501807 [place] [address] 07-11-2024 10:27-0500 Heart rate 60 /min Dr. Jean Yan MD Work Phone: 4(565)071-151607 [place] [address] 07-11-2024 10:27-0500 Respiratory rate 18 /min Dr. Jean Yan MD Work Phone: 3(119)429-963807 [place] [address] 07-11-2024 10:27-0500 Systolic blood pressure 119 mm[Hg] Dr. Jean Yan MD Work Phone: 1(013)550-920607 [place] [address] 07-07-2024 22:04-0500 Body temperature 97.8 [degF] Dr. Jean Yan MD Work Phone: 8(705)921-969107 [place] [address] 07-07-2024 22:04-0500 Diastolic blood pressure 61 mm[Hg] Dr. Jean Yan MD Work Phone: 9(793)321-960007 [place] [address] 07-07-2024 22:04-0500 Heart rate 74 /min Dr. Jean Yan MD Work Phone: 0(725)881-417507 [place] [address] 07-07-2024 22:04-0500 Respiratory rate 19 /min Dr. Jean Yan MD Work Phone: 3(003)469-279307 [place] [address] 07-07-2024 22:04-0500 SaO2% (BldA) [Mass fraction] 94 % Dr. Jean Yan MD Work Phone: 6(022)571-757707 [place] [address] 07-07-2024 22:04-0500 Systolic blood pressure 119 mm[Hg] Dr. Jean Yan MD Work Phone: 4(723)365-968007 [place] [address] 07-07-2024 17:35-0500 Body mass index (BMI) [Ratio] 33.7 kg/m2 Dr. Jean Yan MD Work Phone: 3(430)104-842707 [place] [address] 07-07-2024 17:35-0500 Body weight 97.[address] Jean Yan MD Work Phone: 8(495)878-427407 [place] [address] 07-03-2024 17:24-0500 Body temperature 97.8 [degF] Dr. Jean Yan MD Work Phone: 4(707)151-509607 [place] [address] 07-03-2024 17:24-0500 Diastolic blood pressure 43 mm[Hg] Dr. Jean Yan MD Work Phone: 2(170)134-595207 [place] [address] 07-03-2024 17:24-0500 Heart rate 59 /min Dr. Jean Yan MD Work Phone: 7(803)522-331007 [place] [address] 07-03-2024 17:24-0500 Respiratory rate 16 /min Dr. Jean Yan MD Work Phone: 4(945)559-008207 [place] [address] 07-03-2024 17:24-0500 SaO2% (BldA) [Mass fraction] 98 % Dr. Jean Yan MD Work Phone: 8(111)808-114507 [place] [address] 07-03-2024 17:24-0500 Systolic blood pressure 109 mm[Hg] Dr. Jean Yan MD Work Phone: 1(843)131-680207 [place] [address] 07-03-2024 12:45-0500 Body mass index (BMI) [Ratio] 37.7 kg/m2 Dr. Jean Yan MD Work Phone: 7(787)235-472007 [place] [address] 07-03-2024 12:45-0500 Body weight 109.[address] Jean Yan MD Work Phone: 5(741)945-640707 [place] [address] 07-02-2024 20:15-0500 Body temperature 98 [degF] Dr. Jean Yan MD Work Phone: 3(045)259-328607 [place] [address] 07-02-2024 20:15-0500 Diastolic blood pressure 47 mm[Hg] Dr. Jean Yan MD Work Phone: 3(630)905-166607 [place] [address] 07-02-2024 20:15-0500 Heart rate 56 /min Dr. Jean Yan MD Work Phone: 7(802)618-127807 [place] [address] 07-02-2024 20:15-0500 Respiratory rate 18 /min Dr. Jaen Yan MD Work Phone: 3(937)063-005307 [place] [address] 07-02-2024 20:15-0500 SaO2% (BldA) [Mass fraction] 97 % Dr. Jean Yan MD Work Phone: 0(734)045-156907 [place] [address] 07-02-2024 20:15-0500 Systolic blood pressure 115 mm[Hg] Dr. Jean Yan MD Work Phone: 6(901)552-997207 [place] [address] 07-02-2024 16:22-0500 Body mass index (BMI) [Ratio] 32.5 kg/m2 Dr. Jean Yan MD Work Phone: 3(392)881-208507 [place] [address] 07-02-2024 16:22-0500 Body weight 94.[address] Jean Yan MD Work Phone: 5(436)415-949007 [place] [address] 06-23-2024 02:27-0500 Body weight 92.[address] Jean Yan MD Work Phone: 1(036)916-947107 [place] [address] 06-20-2024 08:47-0500 Body temperature 97.5 [degF] Dr. Jean Yan MD Work Phone: 6(750)956-680907 [place] [address] 06-20-2024 08:47-0500 Body weight 96.[address] Jean Yan MD Work Phone: 3(051)158-006207 [place] [address] 06-20-2024 08:47-0500 Diastolic blood pressure 55 mm[Hg] Dr. Jean Yan MD Work Phone: 0(378)516-007207 [place] [address] 06-20-2024 08:47-0500 Heart rate 57 /min Dr. Jean Yan MD Work Phone: 2(508)078-138907 [place] [address] 06-20-2024 08:47-0500 Respiratory rate 14 /min Dr. Jean Yan MD Work Phone: 0(944)490-860107 [place] [address] 06-20-2024 08:47-0500 Systolic blood pressure 135 mm[Hg] Dr. Jean Yan MD Work Phone: 5(650)705-893807 [place] [address] 06-19-2024 11:43-0500 Body mass index (BMI) [Ratio] 31.9 kg/m2 Dr. Jean Yan MD Work Phone: 4(587)409-616607 [place] [address] 06-19-2024 11:43-0500 Respiratory rate 18 /min Dr. Jean Yan MD Work Phone: 1(781)584-912907 [place] [address] 06-12-2024 11:21-0500 Body temperature 96.7 [degF] Dr. Jean Yan MD Work Phone: 7(278)986-966307 [place] [address] 06-06-2024 10:00-0500 Body temperature 97 [degF] Dr. Jean Yan MD Work Phone: 7(123)413-652307 [place] [address] 06-06-2024 10:00-0500 Diastolic blood pressure 67 mm[Hg] Dr. Jean Yan MD Work Phone: 1(052)770-973571 [place] [address] 06-06-2024 10:00-0500 Heart rate 84 /min Dr. Jean Yan MD Work Phone: 9(901)359-833371 [place] [address] 06-06-2024 10:00-0500 Respiratory rate 16 /min Dr. Jean Yan MD Work Phone: 9(804)788-607207 [place] [address] 06-06-2024 10:00-0500 SaO2% (BldA) [Mass fraction] 95 % Dr. Jean Yan MD Work Phone: 0(656)588-757007 [place] [address] 06-06-2024 10:00-0500 Systolic blood pressure 101 mm[Hg] Dr. Jean Yan MD Work Phone: 4(523)697-951507 [place] [address] 06-06-2024 06:39-0500 Body mass index (BMI) [Ratio] 33.6 kg/m2 Dr. Jean Yan MD Work Phone: 6(031)692-212807 [place] [address] 06-06-2024 06:39-0500 Body weight 97.[address] Jean Yan MD Work Phone: 7(879)227-741007 [place] [address] 05-29-2024 10:49-0500 Diastolic blood pressure 31 mm[Hg] Dr. Jean Yan MD Work Phone: 9(222)950-516407 [place] [address] 05-29-2024 10:49-0500 Heart rate 58 /min Dr. Jean Yan MD Work Phone: 5(591)454-511071 [place] [address] 05-29-2024 10:49-0500 Systolic blood pressure 111 mm[Hg] Dr. Jean Yan MD Work Phone: 2(036)900-821971 [place] [address] 05-23-2024 00:51-0500 Body weight 92.[address] Jean Yan MD Work Phone: [facility] 04-14-2024 10:11-0500 Body temperature 99.1 [degF] Usman Moomaw THERAPY ASSISTANT.[employer] Work Phone: [facility] 04-14-2024 10:11-0500 Diastolic blood pressure 60 mm[Hg] Usman Moomaw THERAPY ASSISTANT.MIRROR MAKER Work Phone: [facility] 04-14-2024 10:11-0500 Heart rate 76 /min Usman Moomaw THERAPY ASSISTANT.MIRROR MAKER Work Phone: [facility] 04-14-2024 10:11-0500 Respiratory rate 16 /min Usman Moomaw THERAPY ASSISTANT.MIRROR MAKER Work Phone: [facility] 04-14-2024 10:11-0500 SaO2% (BldA) [Mass fraction] 94 % Usman Moomaw THERAPY ASSISTANT.MIRROR MAKER Work Phone: [facility] 04-14-2024 10:11-0500 Systolic blood pressure 124 mm[Hg] Usman Moomaw THERAPY ASSISTANT.MIRROR MAKER Work Phone: [facility] 03-28-2024 12:54-0500 Body mass index (BMI) [Ratio] 34.25 kg/m2 Lauren Podlogar THERAPY ASSISTANT.MIRROR MAKER Work Phone: [facility] 03-28-2024 12:54-0500 Body weight 99.2 kg Lauren Podlogar THERAPY ASSISTANT.MIRROR MAKER Work Phone: [facility] 03-28-2024 12:54-0500 Diastolic blood pressure 48 mm[Hg] Lauren Podlogar THERAPY ASSISTANT.MIRROR MAKER Work Phone: [facility] 03-28-2024 12:54-0500 Heart rate 47 /min Lauren Podlogar THERAPY ASSISTANT.MIRROR MAKER Work Phone: [facility] 03-28-2024 12:54-0500 Respiratory rate 18 /min Lauren Podlogar THERAPY ASSISTANT.MIRROR MAKER Work Phone: [facility] 03-28-2024 12:54-0500 SaO2% (BldA) [Mass fraction] 98 % Lauren Podlogar THERAPY ASSISTANT.MIRROR MAKER Work Phone: [facility] 03-28-2024 12:54-0500 Systolic blood pressure 118 mm[Hg] Lauren Podlogar THERAPY ASSISTANT.MIRROR MAKER Work Phone: [facility] 01-06-2024 09:36-0400 Body mass index (BMI) [Ratio] 33.01 kg/m2 Lauren Podlogar THERAPY ASSISTANT.MIRROR MAKER Work Phone: [facility] 01-06-2024 09:36-0400 Body weight 95.6 kg Lauren Podlogar THERAPY ASSISTANT.MIRROR MAKER Work Phone: [facility] 01-06-2024 09:36-0400 Diastolic blood pressure 58 mm[Hg] Lauren Podlogar THERAPY ASSISTANT.MIRROR MAKER Work Phone: [facility] 01-06-2024 09:36-0400 Heart rate 58 /min Lauren Podlogar THERAPY ASSISTANT.MIRROR MAKER Work Phone: [facility] 01-06-2024 09:36-0400 Respiratory rate 16 /min Lauren Podlogar THERAPY ASSISTANT.MIRROR MAKER Work Phone: [facility] 01-06-2024 09:36-0400 SaO2% (BldA) [Mass fraction] 97 % Lauren Podlogar THERAPY ASSISTANT.MIRROR MAKER Work Phone: [facility] 01-06-2024 09:36-0400 Systolic blood pressure 128 mm[Hg] Lauren Podlogar THERAPY ASSISTANT.MIRROR MAKER Work Phone: [facility] 09-08-2023 14:30-0400 Body temperature 96.62 [degF] JEAN PIERRE ARREAGA MD [facility] 09-08-2023 14:30-0400 Diastolic Blood Pressure Non-Invasive 50 mm[Hg] JEAN PIERRE ARREAGA MD [facility] 09-08-2023 14:30-0400 Heart rate 53 /min JEAN PIERRE ARREAGA MD [facility] 09-08-2023 14:30-0400 Respiratory rate 16 /min JEAN PIERRE ARREAGA MD [facility] 09-08-2023 14:30-0400 Systolic Blood Pressure Non-Invasive 140 mm[Hg] JEAN PIERRE ARREAGA MD [address] [place] [address] 09-08-2023 14:13-0400 Body temperature 96.98 [degF] JEAN PIERRE ARREAGA MD [address] [place] [address] 09-08-2023 14:13-0400 Diastolic Blood Pressure Non-Invasive 49 mm[Hg] JEAN PIERRE ARREAGA MD [address] [place] [address] 09-08-2023 14:13-0400 Heart rate 51 /min JEAN PIERRE ARREAGA MD [address] [place] [id number] 09-08-2023 14:13-0400 Mean blood pressure 74 mm[Hg] JEAN PIERRE ARREAGA MD [address] [place] [id number] 09-08-2023 14:13-0400 Respiratory rate 16 /min JEAN PIERRE ARREAGA MD [address] [place] [id number] 09-08-2023 14:13-0400 Systolic Blood Pressure Non-Invasive 134 mm[Hg] JEAN PIERRE ARREAGA MD [address] [place] [address] 09-08-2023 13:58-0400 Diastolic Blood Pressure Non-Invasive 49 mm[Hg] JEAN PIERRE ARREAGA MD [address] [place] [id number] 09-08-2023 13:58-0400 Heart rate 45 /min JEAN PIERRE ARREAGA MD [address] [place] [address] 09-08-2023 13:58-0400 Mean blood pressure 74 mm[Hg] JEAN PIERRE ARREAGA MD [address] [place] [address] 09-08-2023 13:58-0400 Respiratory rate 16 /min JEAN PIERRE ARREAGA MD [address] [place] [id number] 09-08-2023 13:58-0400 Systolic Blood Pressure Non-Invasive 130 mm[Hg] JEAN PIERRE ARREAGA MD [address] [place] [address] 09-08-2023 13:43-0400 Body temperature 96.98 [degF] JEAN PIERRE ARREAGA MD [address] [place] [address] 09-08-2023 13:43-0400 Heart rate 44 /min JEAN PIERRE ARREAGA MD [address] [place] [address] 09-08-2023 13:43-0400 Mean blood pressure 73 mm[Hg] JEAN PIERRE ARREAGA MD [address] [place] [address] 09-08-2023 13:35-0400 Body temperature 95.05 [degF] JEAN PIERRE ARREAGA MD [address] [place] [address] 09-08-2023 13:35-0400 Respiratory Rate - Anes 23 br/min JEAN PIERRE ARREAGA MD [address] [place] [address] 09-08-2023 13:30-0400 Body temperature 94.95 [degF] JEAN PIERRE ARREAGA MD [address] [place] [address] 09-08-2023 13:30-0400 Respiratory Rate - Anes 21 br/min JEAN PIERRE ARREAGA MD [address] [place] [address] 09-08-2023 13:25-0400 Body temperature 94.75 [degF] JEAN PIERRE ARREAGA MD [address] [place] [address] 09-08-2023 13:25-0400 Respiratory Rate - Anes 11 br/min JEAN PIERRE ARREAGA MD [address] [place] [address] 09-08-2023 11:18-0400 Body height 170.2 cm JEAN PIERRE ARREAGA MD [address] [place] [address] 09-08-2023 11:18-0400 Body weight 98.7 kg JEAN PIERRE ARREAGA MD [address] [place] [address] 09-08-2023 10:55-0400 Heart rate 56 /min JEAN PIERRE ARREAGA MD [address] [place] [address] 12-06-2022 09:18-0400 Body weight 97.98 kg Lauren Podlogar THERAPY ASSISTANT.MIRROR MAKER Work Phone: [facility] 12-06-2022 09:18-0400 Diastolic blood pressure 60 mm[Hg] Lauren Podlogar THERAPY ASSISTANT.MIRROR MAKER Work Phone: [facility] 12-06-2022 09:18-0400 Heart rate 50 /min Lauren Podlogar THERAPY ASSISTANT.MIRROR MAKER Work Phone: [facility] 12-06-2022 09:18-0400 Respiratory rate 16 /min Lauren Podlogar THERAPY ASSISTANT.MIRROR MAKER Work Phone: [facility] 12-06-2022 09:18-0400 SaO2% (BldA) [Mass fraction] 96 % Lauren Podlogar THERAPY ASSISTANT.MIRROR MAKER Work Phone: [facility] 12-06-2022 09:18-0400 Systolic blood pressure 128 mm[Hg] Lauren Podlogar THERAPY ASSISTANT.MIRROR MAKER Work Phone: [facility] 09-06-2022 09:54-0400 Body weight 99.52 kg Lauren Podlogar THERAPY ASSISTANT.MIRROR MAKER Work Phone: [facility] 09-06-2022 09:54-0400 Diastolic blood pressure 62 mm[Hg] Lauren Podlogar THERAPY ASSISTANT.MIRROR MAKER Work Phone: [facility] 09-06-2022 09:54-0400 Heart rate 58 /min Lauren Podlogar THERAPY ASSISTANT.MIRROR MAKER Work Phone: [facility] 09-06-2022 09:54-0400 Respiratory rate 18 /min Lauren Podlogar THERAPY ASSISTANT.MIRROR MAKER Work Phone: [facility] 09-06-2022 09:54-0400 SaO2% (BldA) [Mass fraction] 93 % Lauren Podlogar THERAPY ASSISTANT.MIRROR MAKER Work Phone: [facility] 09-06-2022 09:54-0400 Systolic blood pressure 138 mm[Hg] Lauren Podlogar THERAPY ASSISTANT.MIRROR MAKER Work Phone: [facility] 06-07-2022 11:12-0500 Diastolic blood pressure 62 mm[Hg] Husam Yan MD Work Phone: [facility] 06-07-2022 11:12-0500 Systolic blood pressure 144 mm[Hg] Husam Yan MD Work Phone: [facility] 06-07-2022 10:29-0500 Body weight 98.7 kg Husam Yan MD Work Phone: [facility] 06-07-2022 10:29-0500 Heart rate 58 /min Husam Yan MD Work Phone: [facility] 06-07-2022 10:29-0500 Respiratory rate 16 /min Husam Yan MD Work Phone: [facility] 06-07-2022 10:29-0500 SaO2% (BldA) [Mass fraction] 96 % Husam Yan MD Work Phone: [facility] 03-05-2022 09:46-0400 Body weight 98.16 kg Husam Yan MD Work Phone: [facility] 03-05-2022 09:46-0400 Diastolic blood pressure 60 mm[Hg] Husam Yan MD Work Phone: [facility] 03-05-2022 09:46-0400 Heart rate 58 /min Husam Yan MD Work Phone: [facility] 03-05-2022 09:46-0400 Respiratory rate 16 /min Husam Yan MD Work Phone: [facility] 03-05-2022 09:46-0400 Systolic blood pressure 136 mm[Hg] Husam Yan MD Work Phone: [facility] 11-06-2021 09:22-0400 Body height 172.[address] Jean Yan Work Phone: [facility] Work Phone: 11-06-2021 09:22-0400 Body weight 97.[address] Jean Yan Work Phone: [facility] Work Phone: 11-05-2021 09:04-0400 Body mass index (BMI) [Ratio] 32.5 kg/m2 Dr. Jean Yan Work Phone: [facility] Work Phone: 10-21-2021 14:22-0400 Body mass index (BMI) [Ratio] 32.5 kg/m2 Dr. Jean Yan Work Phone: [facility] Work Phone: 10-21-2021 14:22-0400 Body temperature 98 [degF] Dr. Jean Yan Work Phone: [facility] Work Phone: 10-21-2021 14:22-0400 Body weight 97.[address] Jean Yan Work Phone: [facility] Work Phone: 10-21-2021 14:22-0400 Diastolic blood pressure 75 mm[Hg] Dr. Jean Yan Work Phone: [facility] Work Phone: 10-21-2021 14:22-0400 Heart rate 43 /min Dr. Jean Yan Work Phone: [facility] Work Phone: 10-21-2021 14:22-0400 Respiratory rate 16 /min Dr. Jean Yan Work Phone: [facility] Work Phone: 10-21-2021 14:22-0400 SaO2% (BldA) [Mass fraction] 93 % Dr. Jean Yan Work Phone: [facility] Work Phone: 10-21-2021 14:22-0400 Systolic blood pressure 166 mm[Hg] Dr. Jean Yan Work Phone: [facility] Work Phone: 10-27-2016 15:34-0400 Heart rate 69 /min Carmen Blu [facility] Work Phone: 10-27-2016 15:09-0400 BMI (Body Mass Index) 33.15 kg/m2 [facility]enlena [facility] Work Phone: 10-27-2016 15:09-0400 Body weight 101.83 kg [facility] Work Phone: 10-27-2016 15:09-0400 BP Diastolic 70 mm[Hg] [facility] Work Phone: 10-27-2016 15:09-0400 BP Systolic 152 mm[Hg] [facility] Work Phone: 10-27-2016 15:09-0400 Height 175.26 cm [facility] Work Phone: 10-27-2016 15:09-0400 Pulse (Heart Rate) 64 /min [facility] Blu [facility] Work Phone: 10-27-2016 15:09-0400 Respiratory Rate 20 /min [facility] Work Phone: 10-27-2016 15:09-0400 Weight 101.83 kg [facility] Work Phone: Encounters Encounter Date Encounter Type Care Provider Facility Start: 12-12-2024 ambulatory Nando SHERWOOD Fa cility:[facility] Start: 12-11-2024 End: 12-11-2024 Telephone encounter William Chilel MD Work Phone: Cardiology Comment on above: Courtesy call ([facility] e survey) Start: 11-23-2024 End: 11-28-2024 Evaluation and management of inpatient LELE DESAI Facility:[facility] Start: 11-22-2024 End: 11-23-2024 Dr. Nando Wiggins MD Work Phone: -Emergency Department Work Phone: Start: 11-22-2024 End: 11-23-2024 Emergency department patient visit Dr. Nando Wiggins MD Work Phone: -Emergency Department Start: 11-12-2024 ambulatory Nando Wiggins OLS Fa cility:[facility] Start: 11-12-2024 [facility] Start: 11-08-2024 End: 11-09-2024 Dr. Nando Wiggins MD Work Phone: -Emergency Department Work Phone: Start: 11-08-2024 End: 11-09-2024 Emergency department patient visit Dr. Nando Wiggins MD Work Phone: [facility] Work Phone: Start: 11-05-2024 ambulatory Nando SHERWOOD Fa cility:[facility] Start: 11-05-2024 [facility] Start: 11-02-2024 End: 11-02-[address] Nando Wiggins MD Work Phone: -[facility] Start: 11-02-2024 End: 11-02-2024 Meredith Guevara WHEEL CUTTER-C -[facility] Work Phone: Start: 10-29-2024 End: 10-29-2024 ambulatory Nando Wiggins Facility:[facility] Start: 10-29-2024 End: 10-29-2024 Pooja Ruano WHEEL CUTTER-C -[facility] Work Phone: Start: 10-22-2024 ambulatory Nando Wiggins OLS Fa cility:[facility] Start: 10-22-2024 Nando Wiggins MD [facility] Start: 10-17-2024 End: 10-17-2024 Salma MINER -[facility] Work Phone: Start: 10-17-2024 End: 10-17-2024 ambulatory Salma Cervantes Facility:[facility] Start: 10-16-2024 End: 10-16-[address] Nando Wiggins MD Work Phone: [facility] Start: 10-16-2024 End: 10-16-2024 Nando Wiggins MD [facility] Start: 10-08-2024 ambulatory Nando SHERWOOD Fa cility:[facility] Start: 10-08-2024 Nando Wiggins MD [facility] Start: 10-03-2024 End: 10-03-2024 Salma Cervantes [place] -[facility] Work Phone: Start: 10-03-2024 End: 10-03-[address] Jean Yan MD Work Phone: [facility] Work Phone: Start: 10-02-2024 End: 10-02-[address] Nando Wiggins MD Work Phone: [facility] Work Phone: Start: 10-02-2024 End: 10-02-2024 Nando Wiggins MD [facility] Start: 10-02-2024 End: 10-02-2024 ambulatory Nando SHERWOOD Facility:[facility] Start: 09-24-2024 ambulatory Warren Whitaker ty:[facility]ENN[facility] Start: 09-24-2024 Dr. Randal Damico MD - [facility] Start: 09-24-2024 End: 10-18-[address] Jean Yan MD Work Phone: [facility] Work Phone: Start: 09-24-2024 End: 10-18-2024 Dr. Randal Damico MD [facility] Work Phone: Start: 09-24-2024 End: 09-24-2024 ambulatory Nando SHERWOOD Facility:[facility] Start: 09-21-2024 ambulatory Salma Cervantes [facility] Start: 09-17-2024 End: 09-17-2024 Nando Wiggins MD [facility] Start: 09-17-2024 End: 09-17-2024 ambulatory Efewongbe Oleghe OLS Facility:[facility] Start: 09-12-2024 End: 09-12-[address] Jean Yan MD Work Phone: [facility] Work Phone: Start: 09-12-2024 End: 09-12-2024 Nando Wiggins MD [facility] Start: 09-12-2024 End: 09-12-2024 ambulatory Efewongbe Oleghe OLS Facility:[facility] Start: 09-10-2024 ambulatory Efbiancaongbe Holliee OLS Fa cility:[facility] Start: 09-10-2024 Nando Wiggins MD [facility] Start: 09-05-2024 End: 09-05-2024 ambulatory Efewongbe Olelakshmie Facility:[facility] Start: 09-05-2024 End: 09-05-2024 Meredith Guevara [facility] Work Phone: Start: 09-04-2024 Salma MINER -[facility] Start: 09-03-2024 Dr. Lele White MD -[facility] Start: 09-03-2024 Dr. Randal Damico MD -[facility] Start: 09-02-2024 Salma MINER -[facility] Start: 09-01-2024 Salma MINER -[facility] Start: 08-31-2024 ambulatory Lele White Facility:[facility] Start: 08-31-2024 Dr. Randal Damico MD -[facility] Start: 08-31-2024 Salma MINER -[facility] Start: 08-30-2024 Salma MINER -[facility] Start: 08-30-2024 Dr. Randal Damico MD -[facility] Start: 08-29-2024 ambulatory Lele White [facility] Start: 08-29-2024 End: 09-04-2024 Evaluation and management of inpatient Lele White Facility:[facility] Start: 08-29-2024 End: 09-04-2024 Dr. Lele White MD -Medical Surgical 3 Work Phone: Start: 08-29-2024 Dr. Lele White MD -[facility] Start: 08-29-2024 ambulatory Lele White Facility:[facility] Start: 08-28-2024 ambulatory Deblilian Holliedesiree KAELA Fa cility:[facility] Start: 08-28-2024 Nando Wiggins MD [facility] Start: 08-27-2024 ambulatory Warren Mendoza Facili ty:[facility] Start: 08-27-2024 Dr. Randal Damico MD - [facility] Start: 08-27-2024 End: 09-19-2024 ambulatory [facility] Facility:[facility] Start: 08-27-2024 End: 09-19-2024 Dr. Randal Damico MD -[facility] Work Phone: Start: 08-27-2024 End: 08-27-2024 ambulatory Nando Brownedesiree KAELA Facility:[facility] Start: 08-20-2024 ambulatory Randal Damico Facility:[facility] Start: 08-20-2024 Dr. Randal Damico MD - [facility] Start: 08-20-2024 End: 08-20-2024 ambulatory Warren Mendoza Facility:[facility] Start: 08-20-2024 End: 08-20-2024 Dr. Randal Damico MD -[facility] Work Phone: Start: 08-17-2024 ambulatory Salma Cervantes Facility:[facility] Start: 08-14-2024 End: 08-14-2024 ambulatory Nando Wiggins Facility:[facility] Start: 08-14-2024 End: 08-14-2024 Dr. Nando Wiggins MD -[facility] Work Phone: Start: 08-13-2024 [facility] Start: 08-13-2024 End: 08-13-2024 Dr. Randal Damico MD -[facility] Start: 08-13-2024 End: 08-13-2024 ambulatory [facility] Facility:[facility] Start: 08-06-2024 ambulatory Randal Damico Facility:[facility] Start: 08-06-2024 Dr. Randal Damico MD [facility] Start: 08-01-2024 End: 08-01-2024 Emergency department patient visit [facility] Facility:[facility] Start: 08-01-2024 End: 08-01-2024 ambulatory [facility] Facility:[facility] Start: 08-01-2024 End: 08-01-2024 Dr. Des Garcia DO -[facility] Work Phone: Start: 07-31-2024 End: 07-31-2024 ambulatory [facility] Facility:[facility] Start: 07-31-2024 End: 07-31-2024 Meredith Guevara WHEEL CUTTER-C -[facility] Work Phone: Start: 07-30-2024 ambulatory Warren Reji Koffilena ty:[facility] Start: 07-30-2024 Dr. Randal Damico MD [facility] Start: 07-23-2024 ambulatory Warren Crespoall Koffilena ty:[facility] Start: 07-23-2024 Dr. Randal Damico MD [facility] Start: 07-20-2024 Dr. Margarette [facility] Work Phone: Start: 07-20-2024 ambulatory Lele Christopher Facility:[facility] Start: 07-20-2024 Dr. Lele White MD -[facility] Start: 07-19-2024 Dr. Margarette [facility] Work Phone: Start: 07-18-2024 ambulatory Lele White Facility:[facility] Start: 07-18-2024 Dr. Lele White MD [facility] Start: 07-18-2024 Dr. Margarette Herbert DO -[facility] Work Phone: Start: 07-17-2024 Dr. Jayla Osuna MD - [facility] Work Phone: Start: 07-16-2024 [facility] ty[facility] Start: 07-16-2024 Dr. Zenaida Cooper MD -[facility] Start: 07-15-2024 Dr. Juan Antonio Holden [facility] Work Phone: Start: 07-14-2024 Dr. Juan Antonio Holden MD -[facility] Work Phone: Start: 07-13-2024 End: 07-20-2024 Evaluation and management of inpatient Jayla sOuna Facility:[facility] Start: 07-13-2024 End: 07-20-2024 Dr. Margarette Godinez DO -Medical Surgical 3 Work Phone: Start: 07-13-2024 ambulatory Jayla Osuna [facility] Start: 07-13-2024 End: 07-13-2024 ambulatory Nando Wiggins Facility:[facility] Start: 07-13-2024 End: 07-13-[address] [facility] Work Phone: Start: 07-11-2024 End: 07-12-2024 Patient encounter procedure Pham Walker [facility] Comment on above: Population Health Na vigation Outreach ([facility]) Start: 07-11-2024 End: 07-20-2024 ambulatory Pham Walker [facility] Start: 07-11-2024 End: 07-20-2024 Dr. Randal Damico MD -[facility] Work Phone: Start: 07-10-2024 End: 07-10-2024 [facility] Start: 07-10-2024 End: 07-10-2024 Meredith STEWART -[facility] Work Phone: Start: 07-09-2024 End: 07-10-2024 Refill Radha Howe [facility] Comment on above: Refill Request Start: 07-09-2024 Nando [place] Bravo Start: 07-07-2024 End: 07-07-2024 Dr. Alicia Loo DO -Emergency Departmen t Work Phone: Start: 07-07-2024 End: 07-07-2024 Emergency department patient visit [facility] Facility:[facility] Start: 07-03-2024 End: 07-03-2024 Dr. Eric Franklin MD -Emergency Departmen t Work Phone: Start: 07-03-2024 End: 07-03-2024 Emergency department patient visit [facility] Facility:[facility] Start: 07-02-2024 Dr. Fernando stein DO -[place] [facility] Work Phone: Start: 07-02-2024 End: 07-02-2024 ambulatory Manuel Alva Facility:[facility] Start: 07-02-2024 End: 07-02-2024 Dr. Fernando Oliveros DO -Progressive Care Unit Work Phone: Start: 06-25-2024 ambulatory Nando SHERWOOD Fa cility:[facility] Start: 06-25-2024 Nando Bravo Start: 06-20-2024 End: 06-20-2024 Salma MINER -[facility] Work Phone: Start: 06-20-2024 End: 06-20-2024 ambulatory Salma Cervantes Facility[facility] Start: 06-19-2024 End: 06-22-2024 ambulatory Des Ruelas Facility:[facility] Start: 06-19-2024 End: 06-22-2024 Dr. Des Ruelas DP -Wound Healing Center Work Phone: Start: 06-18-2024 ambulatory Nando SHERWOOD Fa cility:[facility] Start: 06-18-2024 Nando Bravo Start: 06-11-2024 End: 06-11-2024 Patient encounter procedure Danilo Pena [facility] Comment on above: Population Health Na vigation Outreach [facility] Start: 06-11-2024 End: 06-11-2024 [facility] Start: 06-11-2024 Nando Bravo Start: 06-08-2024 ambulatory Nando Wiggins OLS Fa cility:[facility] Start: 06-08-2024 Nando Bravo Start: 06-06-2024 End: 06-06-2024 ambulatory Nando Wiggins Facility:[facility] Start: 06-06-2024 End: 06-06-2024 Meredith Guevara [facility] Work Phone: Start: 06-06-2024 End: 06-06-2024 ambulatory Des Ruelas Facility:[facility] Start: 06-06-2024 End: 06-06-2024 Dr. Des Ruelas DP -Surgical Day Care Start: 06-06-2024 End: 06-06-2024 ambulatory Nando SHERWOOD Facility:[facility] Start: 06-04-2024 End: 06-04-2024 ambulatory Kathiefili Edenlakshmidesiree Facility:[facility] Start: 05-30-2024 End: 06-05-2024 Telephone encounter Husam Yan MD Work Phone: [facility] Comment on above: Patient Update; Fill out Surgical Release Forms Start: 05-28-2024 ambulatory Debsrinathwolf Brownedesiree OLS Fa cility:[facility] Start: 05-22-2024 ambulatory [facility] Start: 05-22-2024 End: 05-22-2024 ambulatory [facility] Facility:[facility] Start: 05-21-2024 ambulatory Efbiancaongwolf Brownee OLS Fa cility:[facility] Start: 05-17-2024 ambulatory Warren Whitaker ty:[facility] Start: 05-17-2024 End: 05-22-2024 ambulatory Warren Mendoza Facility:[facility] Start: 05-15-2024 End: 05-15-2024 ambulatory Nando Wiggins Facility:[facility] Start: 05-11-2024 End: 05-11-2024 ambulatory Meredith Guevara TRE Facility:[facility] Start: 05-04-2024 ambulatory Deni Shields Fac ility:[facility] Start: 05-04-2024 End: 05-10-2024 ambulatory Lele White Facility:[facility] Start: 05-04-2024 End: 05-10-2024 Evaluation and management of inpatient Deni Shields Facility:[facility] Start: 05-02-2024 ambulatory Jean Yan Faci lity:[facility] Start: 04-23-2024 End: 04-23-2024 ambulatory Sridevi Miller [facility] Start: 04-23-2024 End: 04-23-2024 Patient encounter procedure Sridevi Miller [facility] Comment on above: Population Health Na vigation Outreach ([place]/Santiago/Desiree ) Start: 04-16-2024 ambulatory Lele White Facility:[facility] Start: 04-16-2024 End: 04-16-2024 ambulatory Warren Jackson Facility:[facility] Start: 04-14-2024 End: 04-24-2024 Evaluation and management of inpatient Warren Mendoza Facility:[facility] Start: 04-14-2024 ambulatory Warren Whitaker ty:BMS Start: 04-14-2024 End: 04-14-2024 ambulatory HUSAM LEWPATRICIA Facility:[facility] Start: 04-14-2024 End: 04-14-2024 Patient encounter procedure Usman Quesada APRN.MIRROR MAKER Work Phone: [facility] Comment on above: Right foot infection (Primary Dx) Start: 04-13-2024 End: 04-17-2024 Telephone encounter Lauren Arzola APRN.CNP Work Phone: [facility] Comment on above: blood sugar reading average Start: 04-05-2024 End: 04-06-2024 Telephone encounter Lauren Arzola APRN.CNP Work Phone: [facility] Comment on above: blood sugar average Start: 03-28-2024 End: 03-28-2024 Patient encounter procedure Lauren Arzola APRN.CNP Work Phone: [facility] Comment on above: 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, without long-term current use of insulin (HCC) (Primary Dx); 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) Start: 03-28-2024 End: 03-28-2024 ambulatory LAUREN XIELOGERICK Facility:[facility] Start: 01-06-2024 End: 01-06-2024 Patient encounter procedure Lauren Arzola APRN.CNP Work Phone: [facility] Comment on above: 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, with long-term current use of insulin (HCC) (Primary Dx); 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); Chronic diastolic heart failure (HCC); Mobitz (type) I (Wenckebach's) atrioventricular block; Lower extremity edema; Essential hypertension; Mixed hyperlipidemia Start: 01-06-2024 End: 01-06-2024 ambulatory HUSAM YAN Facility:[facility] Start: 12-15-2023 End: 02-02-2024 Refill Husam Yan MD Work Phone: [facility] Comment on above: Refill Request (See Rx notes) Start: 09-08-2023 End: 09-08-2023 ambulatory JEAN PIERRE ARREAGA MD Facility:[facility] Start: 09-08-2023 End: 09-08-2023 SAME DAY STAY JEAN PIERRE ARREAGA MD [facility] Start: 09-06-2023 Telephone encounter Jean Yan MD Work Phone: [facility] Comment on above: Medication Request Start: 08-08-2023 Telephone encounter Jean Yan MD Work Phone: [facility] Comment on above: Medication Problem ( Freestyle gelacio 14 day sensor kit - patient's sensor reader is a gelacio 2 and the sensors ordered by our office are incompatible with his reader ) Start: 07-28-2023 Refill Husam Yan MD Work Phone: [facility] Comment on above: Refill Request Start: 07-12-2023 Refill Husam Yan MD Work Phone: [facility] Comment on above: Refill Request Start: 07-11-2023 Refill Husam Yan MD Work Phone: [facility] Comment on above: Refill Request Start: 06-27-2023 End: 06-27-2023 Patient encounter procedure Daniol Cadejúnior Work Phone: Podiatry Comment on above: 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, without long-term current use of insulin (HCC) (Primary Dx); Onychomycosis; Left foot pain; Right foot pain Start: 03-15-2023 Telephone encounter Jean Yan MD Work Phone: [facility] Comment on above: [facility] requesting records Start: 03-08-2023 Telephone encounter Jean Yan MD Work Phone: [facility] Comment on above: Medication Problem Start: 02-23-2023 Telephone encounter Jean Yan MD Work Phone: [facility] Comment on above: Insurance Authorizat ion Start: 01-04-2023 Refill Husam Yan MD Work Phone: [facility] Start: 12-06-2022 End: 12-06-2022 Patient encounter procedure Lauren Arzola APRN.CNP Work Phone: [facility] Comment on above: Type 2 diabetes hernan [...] Refill Husam Yan MD Work Phone: [facility] Comment on above: Refill Request Start: 11-04-2022 Refill Husam Yan MD Work Phone: [facility] Comment on above: Refill Request Start: 10-27-2022 Refill Husam Yan MD Work Phone: [facility] Comment on above: Refill Request Start: 09-06-2022 End: 09-06-2022 Patient encounter procedure Lauren Arzola APRN.CNP Work Phone: [facility] Comment on above: Type 2 diabetes henran itus 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, without long-term current use of insulin ([facility]) (Primary Dx); ESRD (end stage renal disease) on dialysis ([facility]); Chronic diastolic heart failure ([facility]) Start: 08-19-2022 Refill Husam Yan MD Work Phone: [facility] Comment on above: Refill Request Start: 06-08-2022 Telephone encounter Jean Yan MD Work Phone: [facility] Comment on above: Results Start: 06-07-2022 End: 06-07-2022 Patient encounter procedure Husam Yan MD Work Phone: [facility] Comment on above: 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, without long-term current use of insulin ([facility]) (Primary Dx); Essential hypertension; Mixed hyperlipidemia; ESRD [...] encounter Jean Yan MD Work Phone: [facility] Comment on above: Results Start: 03-05-2022 End: 03-05-2022 Patient encounter procedure Husam Yan MD Work Phone: [facility] Comment on above: 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, without long-term current use of insulin (HCC) (Primary Dx); Essential hypertension; Mixed hyperlipidemia; 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); Need for COVID-19 vaccine Start: 02-03-2022 Telephone encounter Jean Yan MD Work Phone: [facility] Comment on above: Insurance Authorizat ion (Information on Glargine) Start: 02-02-2022 Refill Husam Yan MD Work Phone: [facility] Comment on above: Refill Request Start: 01-26-2022 Refill Husam Yan MD Work Phone: [facility] Comment on above: Refill Request Start: 12-14-2021 Refill Husam Yan MD Work Phone: [facility] Comment on above: Refill Request Start: 11-06-2021 Non-patient / Non-visit Dr. Mike Yan Work Phone: [facility] Start: 11-06-2021 End: 11-06-2021 Admission to same day surgery center Dr. Jean Yan Work Phone: [facility]Sl[facility] Cover Estimator/Special Procedures Start: 10-21-2021 End: 10-21-[address] 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 Yasir Yan Work Phone: [facility] Procedures Date Procedure Procedure Detail Performing Clinician Start: 11-27-2024 Antibody screen JUAN ANTONIO YAN Comment on above: Order Comment: Speci men Type: BLOOD SPECIMENOrdering Facility: [facility] Address: [address] [place] [address] Performed By: #### T SCR ####CC MAIN BLOOD BANKCLIA [id number] [address] [place] Start: 11-23-2024 Antibody screen JUAN ANTONIO YAN Comment on above: Order Comment: Speci men Type: BLOOD SPECIMENOrdering Facility: [facility] Address: [address] [place] [address] Performed By: #### T SCR ####CC MAIN BLOOD BANKCLIA [id number] [address] OF [place] Start: 11-22-2024 Plain chest X-ray Dr. [facility] Wiggins MD Work Phone: Start: 11-22-2024 Blood count smear rscp w/mnl difrntl wbc count Dr. Nando iWggins MD Work Phone: Start: 11-22-2024 Calculation of international normalized ratio Dr. Nando Wiggins MD Work Phone: Start: 11-22-[address] Nando Wiggins MD Work Phone: Start: 11-22-2024 Mean corpuscular hemoglobin concentration determination Dr. Nando Wiggins MD Work Phone: Start: 11-22-2024 Nucleated red blood cell count procedure Dr. Nanod Wiggins MD Work Phone: Start: 11-22-2024 Platelet [...] Nucleated red blood cell count procedure Dr. eJan Yan MD Work Phone: Start: 07-20-2024 Platelet mean volume determination Dr. Jean Yan MD Work Phone: Start: 07-20-[address] Jean Yan MD Work Phone: Start: 07-17-[address] iGl Yan MD Work Phone: Start: 07-17-2024 Measurement [...] 07-09-2024 Mean corpuscular hemoglobin concentration determination Dr. Jaen Yan MD Work Phone: Start: 07-09-2024 Measurement [...] 07-07-2024 Mean corpuscular hemoglobin concentration determination Dr. eJan Yan MD Work Phone: Start: 07-07-2024 Measurement [...] Mean corpuscular hemoglobin concentration determination Dr. Jean Yna MD Work Phone: Start: 06-11-2024 Measurement of [...] 12-06-2022 Hemoglobin A1c/Hemoglobin.total in Blood Lauren Podlogar THERAPY ASSISTANT.MIRROR MAKER Work Phone: Start: 09-06-2022 Hemoglobin A1c/Hemoglobin.total in Blood Lauren Podlogar THERAPY ASSISTANT.MIRROR MAKER Work Phone: Start: 03-05-[address] COVI D-19 BIVALENT BOOSTER VACCINE, AGE 12+ [...] OF LATERALITY , HAD IN THE LATE 1960'S OR EARLY S [place] extraction JEAN PIERRE ARREAGA MD Comment on above: ALL TEETH REMOVED Plan of Treatment Date Care Activity Detail Author Start: 04-26-2028 Urine microalbumin profile [facility] Start: 11-23-2025 Hepatitis B surface antibody level LDL Cholesterol [facility] Start: 09-17-2025 Glaucoma screening Dilated Retinal Exam [facility] Start: 05-26-2025 Hemoglobin A1c measurement HbA1C [facility] Start: 01-21-2025 Influenza vaccination Influenza Vaccine (#1) [facility] Start: 01-08-2025 End: 01-08-2025 Patient encounter procedure 01/08/2025 10:30 AM EDT Appointment Cardiology [address] [place] [address] OUTPATIENT 4-6W DEVICE CHECK (PACEMAKER) Cardiology Comment on above: OUTPATIENT 4-6W DEVICE CHECK (PACEMA KER) Start: 11-22-2024 End: 11-22-2024 [facility] Start: 11-08-2024 [facility] Start: 09-04-2024 Patient discharge [facility] Start: 09-04-2024 End: 09-04-2024 [facility] Start: 09-04-2024 Hemodialysis care [facility] Start: 09-03-2024 Application of intermittent pneumatic compression device [facility] Start: 09-03-2024 Wound care [facility] Start: 09-03-2024 [facility] Start: 09-01-2024 End: 09-01-2024 [facility] Start: 09-01-2024 Hemodialysis care [facility] Start: 09-01-2024 Inhalation therapy procedure [facility] Start: 08-30-2024 Following clinical pathway protocol [facility] Start: 08-30-2024 [facility] Start: 08-30-2024 End: 08-30-2024 [facility] Start: 08-30-2024 Hemodialysis care [facility] Start: 08-30-2024 Referral to endocrinology nurse [facility] Start: 08-29-2024 Following clinical pathway protocol [facility] Start: 08-29-2024 Assessment of risk of venous thromboembolism [facility] Start: 08-29-2024 Care regimes management [facility] Start: 08-29-2024 Insertion of catheter into peripheral vein [facility] Start: 08-29-2024 Notification of physician [facility] Start: 08-29-2024 Providing care according to standard [facility] Start: 08-29-2024 Referral to occupational therapist [facility] Start: 08-29-2024 Referral to service [facility] Start: 08-29-2024 End: 08-29-2024 [facility] Start: 08-29-2024 Admission procedure [facility] Start: 08-01-2024 [facility] Start: 07-20-2024 Patient discharge [facility] Start: 07-19-2024 End: 07-19-2024 [facility] Start: 07-19-2024 Hemodialysis care [facility] Start: 07-17-2024 End: 07-17-2024 [facility] Start: 07-17-2024 Hemodialysis care [facility] Start: 07-17-2024 Wound care [facility] Start: 07-16-2024 Following clinical pathway protocol [facility] Start: 07-16-2024 Inhalation therapy procedure [facility] Start: 07-14-2024 [facility] Start: 07-14-2024 Consultation [facility] Start: 07-14-2024 End: 07-14-2024 [facility] Start: 07-14-2024 Hemodialysis care [facility] Start: 07-13-2024 Application of intermittent pneumatic compression device [facility] Start: 07-13-2024 Assessment of risk of venous thromboembolism [facility] Start: 07-13-2024 Care regimes management [facility] Start: 07-13-2024 Consultation for treatment [facility] Start: 07-13-2024 Insertion of catheter into peripheral vein [facility] Start: 07-13-2024 Measuring intake and output [facility] Start: 07-13-2024 Notification of physician [facility] Start: 07-13-2024 Providing care according to standard [facility] Start: 07-13-2024 Provision of activity privileges [facility] Start: 07-13-2024 Referral to endocrinology nurse [facility] Start: 07-13-2024 Referral to occupational therapist [facility] Start: 07-13-2024 Referral to soccer player [facility] Start: 07-13-2024 Referral to service [facility] Start: 07-13-2024 End: 07-13-2024 [facility] Start: 07-13-2024 Admission procedure [facility] Start: 07-09-2024 End: 07-09-2024 Patient encounter procedure 07/09/2024 9:40 AM EST Office [facility] [address] [place] [address] Husam Yan MD [address] [place], [place] [id number] 6 month follow up [facility] Comment on above: 6 month follow up Start: 07-07-2024 [facility] Start: 07-03-2024 [facility] Start: 07-02-2024 Patient discharge [facility] Start: 07-02-2024 End: 07-02-2024 [facility] Start: 07-02-2024 Hemodialysis care [facility] Start: 07-02-2024 Assessment of risk of venous thromboembolism [facility] Start: 07-02-2024 Catheterization of vein [facility] Start: 07-02-2024 Insertion of catheter into peripheral vein [facility] Start: 07-02-2024 Measuring intake and output [facility] Start: 07-02-2024 Providing care according to standard [facility] Start: 07-02-2024 Referral to endocrinology nurse [facility] Start: 07-02-2024 Admission procedure [facility] Start: 06-28-2024 Hemoglobin A1c measurement HbA1C [facility] Start: 06-06-2024 Adjt tis trns/reargmt f/c/c/m/n/a/g/h/f 10sqcm/< [facility] Start: 06-06-2024 Amputation foot transmetarsal [facility] Start: 06-06-2024 Anes open proc bones lower leg/ankle/foot nos [facility] Start: 06-06-2024 Catheterization of vein [facility] Start: 06-06-2024 Neurovascular assessment [facility] Start: 06-06-2024 Patient discharge [facility] Start: 06-06-2024 Procedure discontinued [facility] Start: 06-06-2024 Vital signs measurements [facility] Start: 06-06-2024 [facility] Start: 05-25-2024 Hepatitis B surface antibody level LDL Cholesterol [facility] Start: 05-23-2024 Advance Directive Discussion Advance Directive Discussion [facility] Start: 05-23-2024 Medicare Advantage Annual Wellness Visit Medicare Advantage Annual Wellness Visit [facility] Start: 04-27-2024 Glaucoma screening Dilated Retinal Exam [facility] Start: 02-22-2024 3 comp foot exam completed Diabetic Foot Exam [facility] Start: 02-22-2024 Diabetic foot examination Diabetic Foot Exam [facility] Start: 02-10-2024 End: 02-10-2024 Patient encounter procedure 02/10/2024 11:30 AM EDT Office Visit Podiatry [address] [place] [address] Danilo Martines [address] [place] [address] 3 month follow up nail care Podiatry Comment on above: 3 month follow up nail care Start: 01-22-2024 Covid-19 Vaccine ( season) Covid-19 Vaccine ( season) [facility] Start: 01-22-2024 Covid-19 Vaccine ( season) Covid-19 Vaccine ( season) [facility] Start: 01-22-2024 Influenza vaccination Influenza Vaccine (#1) [facility] Start: 01-06-2024 End: 04-06-2024 Comprehensive metabolic 2000 panel - Serum or Plasma COMPREHENSIVE METABOLIC PANEL Lab Routine 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 edema, with long-term current use of insulin (HCC) Expected: 01/06/2024, Expires: 04/06/2024 [facility] Work Phone: Comment on above: Expected: 01/06/2024, Expires: 4 Start: 01-06-2024 End: 04-06-2024 Hemoglobin A1c in Blood HEMOGLOBIN A1C Lab Routine 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 edema, with long-term current use of insulin (HCC) Expected: 01/06/2024, Expires: 04/06/2024 [facility] Comment on above: Expected: 01/06/2024, Expires: 4 Start: 11-04-2023 End: 11-04-2023 Patient encounter procedure Podiatry Comment on above: 3 month follow up nail care 4 month follow up Start: 08-24-2023 Hemoglobin A1c measurement HbA1C [facility] Start: 07-06-2023 Hepatitis B Vaccine (9 of 9 - Risk Dialysis Recombivax 3-dose series) Hepatitis B Vaccine (9 of 9 - Risk Dialysis Recombivax 3-dose series) [facility] Start: 06-24-2023 Covid-19 Vaccine (4 - Additional dose for Len series) Covid-19 Vaccine (4 - Additional dose for Len series) [facility] Start: 06-24-2023 Covid-19 Vaccine (2022- season) Covid-19 Vaccine ( season) [facility] Start: 06-07-2023 SHINGRIX VACCINE (1 of 2) SHINGRIX VACCINE (1 of 2) [facility] Comment on above: Postponed from 1954 (Declined at t his time) Postponed from 04/30 (Declined at this time) Start: 05-23-2023 Advance Directive Discussion Advance Directive Discussion [facility] Start: 05-23-2023 Behavioral Health Screening Behavioral Health Screening [facility] Start: 03-08-2023 Hemoglobin A1c/Hemoglobin.total in Blood HBA1C [facility] Start: 03-05-2023 Hepatitis B surface antibody level LDL CHOLESTEROL [facility] Start: 03-04-2023 Hepatitis B Vaccine (6 of 6 - Risk Dialysis Recombivax 3-dose series) Hepatitis B Vaccine (6 of 6 - Risk Dialysis Recombivax 3-dose series) [facility] Start: 02-08-2023 Hepatitis C antibody, confirmatory test DILATED RETINAL EXAM [facility] Start: 01-21-2023 Influenza vaccination INFLUENZA (#1) [facility] Start: 12-06-2022 Hemoglobin A1c/Hemoglobin.total in Blood HBA1C [facility] Start: 09-06-2022 End: 11-06-2022 Hemoglobin A1c in Blood HGB A1C Lab Routine 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, without long-term current use of insulin (HCC) Expected: 09/06/2022, Expires: 11/06/2022 [facility] Work Phone: Comment on above: Expected: 09/06/2022, Expires: 3 Start: 09-05-2022 Hemoglobin A1c/Hemoglobin.total in Blood HBA1C [facility] Start: 09-02-2022 3 comp foot exam completed DIABETIC FOOT EXAM [facility] Start: 07-06-2022 COVID-19 VACCINE (4 - Additional dose for Len series) COVID-19 VACCINE (4 - Additional dose for Len series) [facility] Start: 06-07-2022 End: 08-07-2022 Comprehensive metabolic 2000 panel - Serum or Plasma [facility] Work Phone: Comment on above: Expected: 06/07/2022, Expires: 3 Start: 06-07-2022 End: 08-07-2022 Hemoglobin A1c in Blood [facility] Work Phone: Comment on above: Expected: 06/07/2022, Expires: 3 Start: 06-05-2022 Hemoglobin A1c/Hemoglobin.total in Blood HBA1C [facility] Start: 05-23-2022 ADVANCE DIRECTIVE DISCUSSION ADVANCE DIRECTIVE DISCUSSION [facility] Start: 02-25-2022 Hepatitis B surface antibody level LDL CHOLESTEROL [facility] Start: 01-21-2022 Influenza vaccination INFLUENZA (#1) [facility] Start: 12-05-2021 Hepatitis C antibody, confirmatory test DILATED RETINAL EXAM [facility] Start: 12-02-2021 Hemoglobin A1c/Hemoglobin.total in Blood HBA1C [facility] Start: 07-24-2021 COVID-19 VACCINE (3 - Booster for Len series) COVID-19 VACCINE (3 - Booster for Len series) [facility] Start: 05-23-2021 ADVANCE DIRECTIVE DISCUSSION ADVANCE DIRECTIVE DISCUSSION [facility] Start: 05-23-2021 DEPRESSION ASSESSMENT DEPRESSION ASSESSMENT [facility] Start: 05-21-2021 COVID-19 VACCINE (3 - Booster for Len series) COVID-19 VACCINE (3 - Booster for Len series) [facility] Start: 05-12-2017 End: 05-12-2017 Appointment Appointment [facility] Work Phone: Start: 10-27-2016 End: 10-27-2016 Appointment Appointment [facility] Work Phone: Start: 10-27-2016 End: 10-27-2016 Echocardiography Echocardiogram (complete) [facility] Work Phone: Start: 10-27-2016 End: 10-27-2016 Electrocardiogram, complete EKG (In office) [facility] Work Phone: Start: 10-27-2016 End: 10-27-2016 Follow Up Appt 6 months Follow Up Appt 6 months [facility] Work Phone: Start: 10-27-2016 End: 10-27-2016 MMM MMM [facility] Work Phone: Start: 10-27-2016 End: 10-27-2016 Nuclear stress test -Lexiscan Nuclear stress test -Lexiscan [facility] Work Phone: Start: 2012 RSV Vaccine (1 - 1-dose 75+ series) RSV Vaccine (1 - 1-dose 75+ series) [facility] Start: 1997 RSV Vaccine (1 - 1-dose 60+ series) RSV Vaccine (1 - 1-dose 60+ series) [facility] Start: 1987 SHINGRIX VACCINE (1 of 2) SHINGRIX VACCINE (1 of 2) [facility] Start: 1956 SHINGRIX VACCINE (1 of 2) SHINGRIX VACCINE (1 of 2) [facility] Start: 1955 Anxiety Screening Anxiety Screening [facility] Start: 1955 Depression Screening Depression Screening [facility] Patient Education [facility] Work Phone: Patient referral [facility] Work Phone: Referral for further care [facility] Immunizations Immunization Date Immunization Notes Care Provider [facility] 04-01-2024 influenza virus vaccine, unspecified formulation William Chilel MD Work Phone: [facility] 03-15-2024 influenza, injectabl e, quadrivalent, preservative free Dr. Jean Yan MD Work Phone: [facility] 02-21-2023 COVID-19 vaccine, ag e 12+ yr, season (PFIZER-BIONTECH) Husam Yan MD Work Phone: [facility] 02-21-2023 influenza (HD-IIV4) vaccine, age 65+ yr, high dose, quadrivalent, PF (FLUZONE HIGH-DOSE) Husam Yan MD Work Phone: [facility] 02-21-2023 influenza virus vaccine, unspecified formulation JEAN PIERRE ARREAGA MD [facility] 02-21-2023 SARS-CoV-2 (COVID-19 ) mRNAMUL.[id number] JEAN PIERRE ARREAGA MD [facility] Comment on above: Result Comment: 2023: [id number] 03-05-2022 COVID-19 booster vaccine, age 12+ yr, bivalent (PFIZER-BIONTECH) Husam Yan MD Work Phone: [facility] 03-04-2022 Hepatitis B vaccine (recombinant), CpG adjuvanted Husam Yan MD Work Phone: [facility] Work Phone: 02-25-2022 influenza, high-dose , quadrivalent vaccine (FLUZONE HIGH DOSE QUADRIVALENT) Husam Yan MD Work Phone: [facility] Work Phone: 03-26-2021 SARS-CoV-2 (COVID-19 ) mRNA-3963 vaccine JEAN PIERRE ARREAGA MD [facility] 02-17-2021 influenza, high-dose , quadrivalent vaccine (FLUZONE HIGH DOSE QUADRIVALENT) Husam Yan MD Work Phone: [facility] 12-30-2020 Hepatitis B vaccine (recombinant), CpG adjuvanted Husam Yan MD Work Phone: [facility] 10-02-2020 Hepatitis B vaccine (recombinant), CpG adjuvanted Husam Yan MD Work Phone: [facility] 07-31-2020 COVID-19 vaccine (LEN) Husam Yan MD Work Phone: [facility] Comment on above: Result Comment: 2023: [id number] 07-01-2020 hepatitis B vaccine, adult dosage Husam Yan MD Work Phone: [facility] 06-03-2020 hepatitis B vaccine, adult dosage Husam Yan MD Work Phone: [facility] 04-19-2020 influenza virus vaccine, unspecified formulation JEAN PIERRE ARREAGA MD [facility] 04-19-2020 influenza, injectabl e, quadrivalent, preservative free Dr. Jean Yan MD Work Phone: [facility] 04-19-2020 influenza, seasonal, injectable Dr. Jean Yan Work Phone: [facility] Work Phone: 04-19-2020 influenza, seasonal, injectable, preservative free Husam Yan MD Work Phone: [facility] Work Phone: 02-28-2019 influenza virus vaccine, unspecified formulation JEAN PIERRE ARREAGA MD [facility] 02-28-2019 influenza, high dose seasonal, preservative-free Husam Yan MD Work Phone: [facility] 06-12-2014 pneumococcal conjuga te vaccine, 13 valent Husam Yan MD Work Phone: [facility] 02-20-2011 influenza virus vaccine, unspecified formulation Husam Yan MD Work Phone: [facility] Work Phone: 02-14-2009 influenza virus vaccine, unspecified formulation Husam Yan MD Work Phone: [facility] Work Phone: 11-01-2007 diphtheria and tetan us toxoids, adsorbed for pediatric use Husam Yan MD Work Phone: [facility] Work Phone: 05-08-2007 influenza virus vaccine, unspecified formulation Husam Yan MD Work Phone: [facility] Work Phone: 03-28-2006 influenza virus vaccine, unspecified formulation Husam Yan MD Work Phone: [facility] 03-04-2006 pneumococcal polysaccharide vaccine, 23 valent Husam Yan MD Work Phone: [facility] Work Phone: Payers Date Payer Category Payer Medicaid [id number] 10-28-2023 Self-pay [id number] 01-21-2021 Medicare HUMANA MEDICARE HUMANA MEDICARE PPO [id number] 01/21/2021-Present [phone] [address] [address] [place] [address] PPO [id number] 05-23-2017 Medicare [id number]. [id number] 05-23-2017 Medicare (Managed Care) GABRIELE DE LEON [id number]. [id number] 05-23-2012 Medicare [id number] 1935 Unknown [id number] 2.16840.1.636403.3.579.2. 627 Unknown SELF PAY INSURANCE [id number] Unknown [id number] 2.16.840.1.932901.3.579.2. 462 Unknown [id number] 2.16840.1.387873.3.579.2. 462 Unknown [id number] 2.16.840.1.557021.3.579.2. 462 Unknown [id number] 2.16840.1.224792.3.579.2. 462 Unknown [id number] 2.16840.1.662661.3.579.2. 462 Unknown [id number] 2.16840.1.254571.3.579.2. 462 Unknown [id number] 2.16840.1.959189.3.579.2. 462 Unknown [id number] 2.16.840.1.912640.3.579.2. 462 Unknown [id number] 2.16.840.1.971956.3.579.2. 462 Unknown [id number] 2.16840.1.051983.3.579.2. 462 Unknown [id number] 2.16.840.1.715314.3.579.2. 462 Unknown [id number] 2.16.840.1.565509.3.579.2. 462 Unknown [id number] 2.16.840.1.218887.3.579.2. 462 Unknown [id number] 2.16840.1.466322.3.579.2. 462 Unknown [id number] 2.16.840.1.101568.3.579.2. 462 Unknown [id number] 2.840.1.099417.3.579.2. 462 Unknown [id number] 2.840.1.865330.3.579.2. 462 Unknown [id number] 2.840.1.908693.3.579.2. 462 Unknown [id number] 2.840.1.808668.3.579.2. 462 Unknown [id number] 2.840.1.173001.3.579.2. 462 Unknown [id number] 2.840.1.955028.3.579.2. 462 Unknown [id number] 2.840.1.344573.3.579.2. 462 Unknown [id number] 2.840.1.860504.3.579.2. 462 Unknown [id number] 2.840.1.258094.3.579.2. 462 Unknown [id number] 2.840.1.479520.3.579.2. 462 Unknown [id number] 2.840.1.402218.3.579.2. 462 Unknown [id number] 2.840.1.563618.3.579.2. 462 Unknown [id number] 2.840.1.702557.3.579.2. 462 Unknown [id number] 2.16.840.1.079652.3.579.2. 462 Unknown [id number] 2.16.840.1.273871.3.579.2. 462 Unknown [id number] 2.16.840.1.544478.3.579.2. 462 Unknown [id number] 2.16.840.1.748579.3.579.2. 462 Unknown [id number] 2.16.840.1.928178.3.579.2. 462 Unknown [id number] 2.16.840.1.726372.3.579.2. 462 Unknown [id number] 2.840.1.082919.3.579.2. 462 Unknown [id number] 2.840.1.901101.3.579.2. 462 Unknown [id number] 2.840.1.490331.3.579.2. 462 Unknown [id number] 2.840.1.623558.3.579.2. 462 Unknown [id number] 2.840.1.181642.3.579.2. 462 Unknown [id number] 2.840.1.974210.3.579.2. 462 Unknown [id number] 2.840.1.299055.3.579.2. 462 Unknown [id number] 2.840.1.887696.3.579.2. 462 Unknown [id number] 2.16.840.1.866949.3.579.2. 462 Unknown [id number] 2.16.840.1.972141.3.579.2. 462 Unknown [id number] 2.16.840.1.118250.3.579.2. 462 Unknown [id number] 2.16.840.1.429461.3.579.2. 462 Unknown [id number] 2.840.1.793554.3.579.2. 462 Unknown [id number] 2.16.840.1.022330.3.579.2. 462 Unknown [id number] 2.16.840.1.962771.3.579.2. 462 Unknown [id number] 2.16.840.1.685294.3.579.2. 462 Unknown [id number] 2.16.840.1.556337.3.579.2. 462 Unknown [id number] 2.16.840.1.010983.3.579.2. 462 Unknown [id number] 2.16.840.1.586024.3.579.2. 462 Unknown [id number] 2.16.840.1.951511.3.579.2. 462 Unknown [id number] 2.16.840.1.190475.3.579.2. 462 Unknown [id number] 2.16.840.1.152073.3.579.2. 462 Unknown [id number] 2.16.840.1.143770.3.579.2. 462 Unknown [id number] 2.16.840.1.802763.3.579.2. 462 Unknown [id number] 2.16.840.1.974516.3.579.2. 462 Unknown [id number] 2.16.840.1.729782.3.579.2. 462 Unknown [id number] 2.16.840.1.644825.3.579.2. 462 Unknown [id number] 2.16.840.1.996651.3.579.2. 462 Unknown [id number] 2.16.840.1.951324.3.579.2. 462 Unknown [id number] 2.16.840.1.921104.3.579.2. 462 Unknown [id number] 2.16.840.1.634701.3.579.2. 462 Unknown [id number] 2.16.840.1.687212.3.579.2. 462 Unknown [id number] 2.16.840.1.997060.3.579.2. 462 Unknown [id number] 2.16.840.1.013969.3.579.2. 462 Unknown [id number] 2.16.840.1.739683.3.579.2. 462 Unknown [id number] 2.16.840.1.090994.3.579.2. 462 Unknown [id number] 2.16.840.1.922887.3.579.2. 462 Unknown [id number] 2.16.840.1.956441.3.579.2. 462 Unknown [id number] 2.16.840.1.947239.3.579.2. 462 Unknown [id number] 2.16.840.1.887032.3.579.2. 462 Unknown [id number] 2.16.840.1.539747.3.579.2. 462 Unknown [id number] 2.16.840.1.925847.3.579.2. 462 Unknown [id number] 2.16.840.1.252141.3.579.2. 462 Unknown [id number] 2.16.840.1.749232.3.579.2. 462 Unknown [id number] 2.16.840.1.845145.3.579.2. 462 Unknown [id number] 2.16.840.1.802342.3.579.2. 462 Unknown [id number] 2.16.840.1.943572.3.579.2. 462 Unknown [id number] 2.16.840.1.835488.3.579.2. 462 Unknown [id number] 2.16.840.1.419515.3.579.2. 462 Unknown [id number] 2.16.840.1.385374.3.579.2. 462 Unknown [id number] 2.16.840.1.310959.3.579.2. 462 Unknown [id number] 2.16.840.1.024916.3.579.2. 462 Unknown [id number] 2.16.840.1.928772.3.579.2. 462 Unknown [id number] 2.16.840.1.498559.3.579.2. 462 Unknown [id number] 2.16.840.1.764085.3.579.2. 462 Unknown [id number] 2.16.840.1.108717.3.579.2. 462 Unknown [id number] 2.16.840.1.698119.3.579.2. 462 Unknown [id number] 2.16.840.1.823947.3.579.2. 462 Unknown [id number] 2.16.840.1.072274.3.579.2. 462 Unknown [id number] 2.16.840.1.226797.3.579.2. 462 Unknown [id number] 2.16.840.1.119408.3.579.2. 462 Unknown [id number] 2.16.840.1.823986.3.579.2. 462 Unknown [id number] 2.16.840.1.729196.3.579.2. 462 Unknown [id number] 2.16.840.1.008487.3.579.2. 462 Unknown [id number] 2.16.840.1.971101.3.579.2. 462 Unknown [id number] 2.16.840.1.398842.3.579.2. 462 Unknown [id number] 2.16.840.1.778973.3.579.2. 462 Unknown [id number] 2.16.840.1.127232.3.579.2. 462 Unknown [id number] 2.16.840.1.027299.3.579.2. 462 Unknown [id number] 2.16.840.1.208982.3.579.2. 462 Unknown [id number] 2.16840.1.964528.3.579.2. 462 Unknown [id number] 2.16.840.1.274939.3.579.2. 462 Unknown [id number] 2.840.1.582243.3.579.2. 462 Unknown [id number] 2.840.1.696263.3.579.2. 462 Unknown [id number] 2.840.1.532629.3.579.2. 462 Unknown [id number] 2.840.1.974858.3.579.2. 462 Unknown [id number] 2.840.1.579463.3.579.2. 462 Unknown [id number] 2.840.1.387893.3.579.2. 462 Unknown [id number] 2.840.1.243883.3.579.2. 462 Unknown [id number] 2.840.1.141500.3.579.2. 462 Unknown [id number] 2.840.1.866167.3.579.2. 462 Unknown [id number] 2.840.1.612621.3.579.2. 462 Unknown [id number] 2.840.1.176155.3.579.2. 462 Unknown [id number] 2.840.1.968796.3.579.2. 462 Unknown [id number] 2.840.1.902699.3.579.2. 462 Unknown [id number] 2.16840.1.632079.3.579.2. 462 Unknown [id number] 2.840.1.834190.3.579.2. 462 Social History Date Type Detail Facility Start: 07-25-2017 End: 03-05-2022 Tobacco smoking status NHIS Ex-smoker [facility] History of tobacco use Cigar Smoker [facility] Start: 07-25-2017 End: 03-05-2022 Tobacco use and exposure Smokeless tobacco non-user [facility] Start: 07-15-2021 End: 11-26-2024 Alcohol intake Current drinker of alcohol (finding) [facility] Start: 07-15-2021 End: 12-06-2022 Alcohol intake [facility] Work Phone: Start: 11-18-2016 History SDOH Alcohol Comment rarely [facility] Start: 04-28-2017 Tobacco Comment Occasionally [facility] Start: 1935 Sex Assigned At Not on file C [facility] Start: 02-02-2021 End: 03-05-2022 Exposure to SARS-CoV-2 (event) Not sure [facility] Start: 11-06-2021 Tobacco smoking stat us SDIS Unknown if ever smoked [facility] Work Phone: Start: 04-18-2020 None [facility] Start: 08-28-2020 Spouse/ Signif icant Other [facility] Start: 09-26-2020 Non-smoker [facility] Start: 1935 Sex Assigned At Male A [facility] History of tobacco use Current smoker [facility] Start: 12-06-2022 End: 11-26-2024 Tobacco use panel [facility] Work Phone: Adult Depression Screening Assessment 0 [facility] Work Phone: Start: 08-28-2024 End: 11-22-2024 Tobacco smoking status NHIS Never smoked tobacco (finding) [facility] Has the electric, Verivue s, oil, or water company threatened to shut off services in your home in past 12Mo No [facility] Work Phone: (I/We) worried wheth er (my/our) food would run out before (I/we) got money to buy more. Never true [facility] Medical Equipment Procedure Code Equipment Code Equipment [...] above or below knee FDA Start: 08-29-2024 [id number], [id number], [id number], [id number], [id number], [id number], [id number], [id number] Start: 09-06-2011 End: 10-27-2022 Comment on above: Test blood sugar(s) 2x daily. Dx E11.65. Insulin: No. Test blood sugar(s) 2x daily. Dx: E11.65. Insulin: No Use one needle for e ach dose. 1x/day. 1 Each once daily. Test blood sugar(s) 2 times daily. Dx: Type 2 DM -E11.65 Insulin: No [id number], [id number], )[id number] , [id number] FDA Start: 04-28-2017 Comment on [...] 11/28/2024 11:21 AM Danilo Rankin RN No [facility] 11-28-2024 Are you blind, or do you have serious difficulty seeing, even when wearing glasses No 11/28/2024 11:21 AM Danilo Rankin RN No [facility] 11-28-2024 Do you have serious difficulty walking or climbing stairs Yes 11/28/2024 11:21 AM Danilo Rankin, ISABEL Yes [facility] 11-28-2024 Do you have difficul ty dressing or bathing No 11/28/2024 11:21 AM Danilo Rankin RN No [facility] 11-28-2024 Because of a physica l, mental, or emotional condition, do you have difficulty doing errands alone such as visiting a physician's office or shopping Yes 11/28/2024 11:21 AM Danilo Rankin RN Yes [facility] 09-04-2024 [facility] Work Phone: 09-03-2024 Functional status Well [facility] Work Phone: 07-20-2024 Functional status Bedrest [facility] Work Phone: 07-02-2024 Functional status Independent [facility] Work Phone: 09-08-2023 Functional Status Other: eye shield [facility] 09-08-2023 Functional Status Maintained [facility] 09-07-2023 Functional Status [facility] 09-26-2014 Are you deaf, or do you have serious difficulty hearing No 09/26/2014 8:15 AM Pooja Goins, ISABEL No [facility] 09-26-2014 Are you blind, or do you have serious difficulty seeing, even when wearing glasses No 09/26/2014 8:15 AM Pooja Goins RN No [facility] 09-26-2014 Do you have serious difficulty walking or climbing stairs No 09/26/2014 8:15 AM Pooja Goins, ISABEL No [facility] 09-26-2014 Do you have difficul ty dressing or bathing No 09/26/2014 8:15 AM Pooja Goins RN No [facility] 09-26-2014 Because of a physica l, mental, or emotional condition, do you have difficulty doing errands alone such as visiting a physician's office or shopping No 09/26/2014 8:15 AM Pooja oGins RN No [facility] Mental Status Date Assessment Result Facility 11-28-2024 Because of a physica l, mental, or emotional condition, do you have serious difficulty concentrating, remembering, or making decisions Yes 11/28/2024 11:21 AM Danilo Rankin RN Yes [facility] 11-22-2024 Cognitive function Voice/Name [facility] Work Phone: 09-04-2024 Cognitive function Voice/Name [facility] Work Phone: 07-20-2024 Cognitive function Voice/Name [facility] Work Phone: 07-07-2024 Cognitive function Voice/Name [facility] Work Phone: 07-03-2024 Cognitive function Follows Commands;Drows y [facility] Work Phone: 07-02-2024 Cognitive function Appropriate;Cooperativ e [facility] Work Phone: 06-06-2024 Cognitive function Drowsy [facility] Work Phone: 06-06-2024 Cognitive function Voice/Name [facility] Work Phone: 09-08-2023 Mental Status [facility]ed x [facility] 09-26-2014 Because of a physica l, mental, or emotional condition, do you have serious difficulty concentrating, remembering, or making decisions No 09/26/2014 8:15 AM Pooja Goins RN No [facility] Clinical Notes 12-19-2015 to 12-11-2024 Telephone Encounter [...] Location Dept Phone 01/08/2025 10:30 AM DEVICE [facility] [place] [phone] Any scheduling issues:Yes, Spoke with patients daughter she stated if her dad could follow up locally she would call and cancel appointment with [facility]. Questions moving forward: No TECHNOLOGIST Anaid [facility] 12-11-2024 Miscellaneous Notes Formattin g of this [...] Location Dept Phone 01/08/2025 10:30 AM DEVICE [facility] Main [facility] [phone] Any scheduling issues:Yes, Spoke with patients daughter she stated if her dad could follow up locally she would call and cancel appointment with [facility]. Questions moving forward: No FATUMA WorrellOLOGIST documented in this encounter [facility] 11-27-2024 Note [facility] 11-26-2024 Note [facility] 11-26-2024 Note [facility] 11-26-2024 Note [facility] 11-25-2024 Note [facility] 11-25-2024 Note [facility] 11-24-2024 Note [facility] 11-24-2024 Note [facility] 11-24-2024 Note [facility] 11-23-2024 Note [facility] 11-23-2024 Note [facility] 11-23-2024 Note [facility] 11-22-2024 Radiology Diagnostic study note [facility] 11-09-2024 Discharge summary Note Date/Time November 08, 2024 11:39pm [facility] Medical Records Department [address] [place] [address] Emergency Department Summary 11/08/24 MR#: [id number] Acct: [id number] Name: PERLA THOMPSON Rep #:[id number] : 1935 89 From: Max Ayers PCP: Dr. Nando Wiggins MD Status:R EG ER Location: ED HPI <KRISTOFER Taylor - Last Filed: 11/08/24 22:12> HPI - Fall History of Present Illness Chief Complaint: Fall Narrative Narrative: 89-year-old male with PMH of DM2, ESRD on HD, A-fib on Eliquis, right BKA presents [facility] a [facility] at his [facility]. 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 Wound, open, foot End stage renal disease MRSA (methicillin resistant staph aureus) culture positive Cutaneous abscess of right foot Diabetic infection of right foot Acute hyperkalemia Open wound Lives in [facility] Dietary restriction History of stress test History of echocardiogram Cardiology follow-up encounter History of atrial fibrillation Insulin dependent diabetes mellitus Other specified peripheral vascular diseases 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 Max Roberts, DO - Last Filed: 11/08/24 23:39> Physical [...] 98 94 Oxygen Delivery Method Room Air [facility] <KRISTOFER Taylor - Last Filed: 11/08/24 22:12> [facility] Narrative Medical decision making narrative: History gathered [...] IMPRESSION: No acute intracranial abnormalities. Reading Location: [place] [address] Foot X-Ray 11/08/24 21:20 IMPRESSION: No acute fracture is appreciated. Other abnormalities as detailed above. Reading Location: [facility] ED attending interpretation of left foot shows no acute fracture or dislocation. <Dr. Max Roberts DO - Last Filed: 11/08/24 23:39> [facility] Radiography Diagnostic Testing: Clinical Impression(s) from Imaging Studies Brain CT 11/08/24 19:51 IMPRESSION: No acute intracranial abnormalities. Reading Location: [place] [address] Foot X-Ray 11/08/24 21:20 IMPRESSION: No acute fracture is appreciated. Other abnormalities as detailed above. Reading Location: [facility] Treatment and Re-Evaluation Narrative: Attending note: I have personally performed a face to face assessment of the patient and have reviewed the MANI note. I personally made/approved the management plan and take responsibility for the patient management. I performeda substantive portion of the visit including all aspects of the following. My figueroa findings include: Sent from assisted facility fall out of his recliner. Normally [...] 100 unit/mL Insulin Pen See Protocol subcut [facility] Protocol: 3. Sliding Scale Insulin Med Dosing [...] please return to the ER. Print Language: Taiwanese Disposition Disposition: Home, Self Care What to do if you have Problems For any increased pain, shortness of breath, bleeding, nausea or vomiting, chestpain, or any unexpected problems, contact your Primary Care Provider. Call [facility] ([phone]) or report to the closest Emergency Room. Call 911 if necessary. 11/08/24 5102 <Electronically signed by Max Ayers> Cosigner Signature (if applicable): 11/08/24 2212 <Electronically signed by Xena MINER> CC: Dr. Nando Wiggins MD ~ Signed [facility] Work Phone: 1(489) 323-158306-19-2025 Radiology Diagnostic study [facility]06-19-2025 Radiology Diagnostic study [facility]05-05-2025 Progress note Author Randal Damico [facility] Note Date/Time September 24, 2024 11:03a m [facility] Medical Records Department [address] [place] [address] Progress Note - Surgery 09/24/24 1101 MR#: [id number] Acct: [id number] Name: PERLA THOMPSON Rep #:[id number] : 1935 89 From: Randal Damico MD [...] encounter PLAN: Continue ABD for padding Continue Entry Level Programmer splint for knee extension and plan for stump forming with [place] eventual prosthesis at likely 3 months Plan from vascular is to follow-up in 2 weeks for staple removal. Agree with plan. Patient is not having any residual limb pain or phantom limb pain. Follow-up asneeded. 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 inactive [...] 2024 9:45am Sinus bradycardia chronic October 9:45am [facility] Work Phone: 1(215) 558-592102-28-2025 [facility]02-21-2025 Evaluation note* Diagnosis Onset Date Resolution [...] chronic August 29, 2024 1:06pm 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 msg sent to pcp to make him aware that he is in a [facility] Reason for Outreach Care Gap/HCC or Scheduling [...] 11, 2024 2:35 PM [facility] Telephone encounter Note* Telephone Encounter - Radha [...] RAY Roach July 09, 2024 11:51 AM [facility]02-17-2025 Miscellaneous Notes* Telephone Encounter - Radha Howe [...] 09, 2024 11:51 AM [facility]02-10-2025 Evaluation note* Diagnosis Onset Date Resolution [...] 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 February 21st, 2 025 5:48pm Cutaneous abscess of right [...] chronic August 29, 2024 1:06pm 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[place] ira artery of right leg with gangrene inactive [...] AV fistula acute October 17, 2024 10:05am [facility] Work Phone: 1(811) 373-270901-29-2025 Evaluation note* Diagnosis Onset Date Resolution Status [...] chronic August 29, 2024 1:06pm 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[place] ira artery of right leg with gangrene inactive [...] AV fistula acute October 17, 2024 10:05am [facility] Work Phone: 1(280) 104-747901-20-2025 [facility] History of Present illness Narrative* Pena, Danilo, MA - 06/11/2024 1:49 PM EST POPULATION [...] 11, 2024 1:49 PM documented in this encounterA[facility]01-15-[facility] Evaluation note* Diagnosis Onset Date Resolution Status [...] Cutaneous abscess of right foot inactive July 13 025 5:48pm Other specified peripheral vascular diseases [...] chronic August 29, 2024 1:06pm 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[place] ir[place] artery of right leg with gangrene inactive August 29, 2024 1:06pm Wound, open, foot inactive August 292024 1:06pm Amputation of right lower extremity below knee acute September 24 9:58am [facility] Work Phone: 1(307) 196-598401-15-2025 Evaluation note* Diagnosis Onset Date Resolution Status [...] 5:48pm Pain in right foot resolved Februa ry 2024 5:48pm Chronic osteomyelitis of rig ht [...] chronic August 29, 2024 1:06pm 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 artery of right leg with gangrene inactive August 29, 2024 1:06pm Wound, open, foot inactive August 292024 1:06pm Amputation of right lower extremity below knee acute September 24 9:58am Amputation of right lower extremity below knee acute October 03, 2 025 8:55am End stage renal disease acute M ay 2024 8:55am [facility] Work Phone: [phone] 128-132501-14-2025 Telephone encounter Note* Telephone Encounter - Catalina Ruth RN - 06/05/2024 3:25 PM EST Closing encounter as Pt and family have not called back in. If they do we can open a new TE. [facility]01-14-2025 Miscellaneous Notes* Telephone Encounter - Catalina Ruth [...] to clear him. If [facility] with [facility]ins, they should have access [...] that Cardiology Dr. Yunior Tong from the [facility] has signed off on medical [...] If he is a resident at the chcf, it would be most convenient for the patient to have Dr. Wiggins do his pre op there. If they are unable or unwilling, he would need OV with us before I could clear him. * Telephone Encounter - Alanna Veloz LPN - 05/30/2024 10:55 AM EST Phoned patients sonJey back to advise if patient is at [facility] and on a skilled unit under Dr Wiggins's care we recommend she fill the clearance form out. Jey explained that Dr Wiggins rounds on Tuesday mornings when patient is at the wound clinic for his weekly debridments. Explained to son that wetypically need to obtain labs and EKG and patient would need to be seen in office. He stated patient has a line lead and wondered if they sign off if [...] avaoid using the ER for amputation but soccer player has advised that would be easier than getting the clearance. Please advise. Alanna Veloz LPN * Telephone Encounter - Catalina Ruth RN - 05/30/2024 10:35 AM EST Jey Pts son in law called in and reports Pt is now in a assisted facility. He states [facility] his big toe and the ball of his foot in April at the ER. He states they want to remove the rest of the toes as soon as they can, but they don't want to have to do it in the ER. He states that surgical instrument repair specialist for this provider is going to be sending over a surgical release for for the providers office to sign. Pt was last seen by Lauren Podlogar WHEEL CUTTER on 03/28/24, he had an A1C and CMP done. I don't know if Pt would been to come in and be seen again before forms could be signed. Forms are going to be sent to office Attn: Marilia. Please call and advise if anything else will need to be done. documented in this encounterAdena [facility]ayette [facility] Center01-09-2025 Telephone encounter Note * Telephone Encounter - [...] triage nurse the ok/information. Alanna Veloz LPN [facility]01-09-2025 Telephone encounter Note* Telephone Encounter - Husam Yan MD - 05/31/2024 12:42 PM EST He will still need physical exam and possibly labs before I would be able to clear him. If he is int chcf with Dr. Wiggins, they should have access to his labs and might be easier for them to see and clear him. If unable or unwilling, I would need to see him in our office. [facility]01-09-2025 Telephone encounter Note* Telephone Encounter - Mary Hodges LPN - 05/31/2024 11:41 AM EST Son dropped off copies of POA and Living Will forms at this time. Mary Hodges LPN [facility]01-08-2025 Telephone encounter Note* Telephone Encounter - Deborah Bedoya LPN - 05/30/2024 4:52 PM EST Son in law calling in to advise office that Cardiology Dr. Yunior Tong from the [facility] has signed off on medical [...] after PCP reviews paperwork. Deborah Bedoya LPN [facility]01-08-2025 Telephone encounter Note* Telephone Encounter - Deborah Bedoya LPN - 05/30/2024 1:51 PM EST Telephone call placed to patients son in law Jey. Made aware patient would need to be seen in office or could utilize nursing homes Dr. Mauricio understanding. Deborah Bedoya LPN [facility]01-08-2025 Telephone encounter Note* Telephone Encounter - Husam Yan MD - 05/30/2024 11:13 AM EST If he is a resident at the ch[facility], it would be most convenient for the patient to have Dr. Wiggins do his pre op there. If they are unable or unwilling, he would need OV with us before I could clear him. [facility]01-08-2025 Telephone encounter Note* Telephone Encounter - Alanna Veloz LPN - 05/30/2024 10:55 AM EST Phoned patients son, Jey back to advise if patient is at [facility] and on a skilled unit under Dr Wiggins's care we recommend she fill the clearance form out. Jey explained that Dr Wiggins rounds on Tuesday mornings when patient is at the wound clinic for his weekly debridments. Explained to son that wetypically need to obtain labs and EKG and patient would need to be seen in office. He stated patient has a line lead and wondered if they sign off if [...] avaoid using the ER for amputation but soccer player has advised that would be easier than getting the clearance. Please advise. Alanna Veloz LPN [facility]01-08-2025 Telephone encounter Note* Telephone Encounter - Catalina Ruth RN - 05/30/2024 10:35 AM EST Jey Pts son in law called in and reports Pt is now in a assisted facility. He states Dr [facility]uel[facility] took his big toe and the ball of his foot in April at the ER. He states they want to remove the rest of the toes as soon as they can, but they don't want to have to do it in the ER. He states that surgical instrument repair specialist for this provider is going to be sending over a surgical release for for the providers office to sign. Pt was last seen by Lauren Podlogar WHEEL CUTTER on 03/28/24, he had an A1C and CMP done. I don't know if Pt would been to come in and be seen again before forms could be signed. Forms are going to be sent to office Attn: Marilia. Please call and advise if anything else will need to be done. [facility]12-19-2024 [facility]12-13-2024 [facility]12-03-2024 [facility]12-02-2024 Note [facility]12-02-2024 History of Present illness Narrative* Sridevi Miller [...] 23, 2024 2:35 PM documented in this encounterAdena F[facility] Center11-26-2024 Telephone encounter Note * Telephone Encounter - Mayela Hopson LPN - 04/17/2024 12:51 PM EST noted. [facility]11-26-2024 Miscellaneous Notes* Telephone Encounter - Mayela Hopson LPN - 04/17/2024 12:51 PM EST noted. * Telephone Encounter - Lauren Arzola APRN.CNP - 04/16/2024 9:19 AM EST Okay. Possible why his sugars have bee elevated as well. Lauren Arzola APRN.LUZ * Telephone Encounter - Mayela Hopson LPN - 04/16/2024 9:08 AM EST Phoned Norah and went over notes below. She said her father is in [facility] with a fott infection right now. She will update you when she can. * Telephone Encounter - Lauren Arzola APRN.CNP - 04/16/2024 7:08 AM EST Update me Tuesday with readings. Lauren Arzola APRN.CNP * Telephone Encounter - Mayela Hopson LPN - 04/13/2024 2:47 PM EST Phoned daughter Norah and went over notes from Lauren Arzola WHEEL CUTTER with understanding. Norah said father would not [...] units daily. Please advise documented in this encounterAdena Fayette Medical Center11-25-2024 Telephone encounter Note * Telephone Encounter - Lauren Arzola APRN.CNP - 04/16/2024 9:19 AM EST Okay. Possible why his sugars have bee elevated as well. Lauren Arzola APRN.CNP [facility]11-25-2024 Telephone encounter Note* Telephone Encounter - Mayela Hopson LPN - 04/16/2024 9:08 AM EST Phoned Norah and went over notes below. She said her father is in [facility] with a fott infection right now. She will update you when she can. [facility]11-25-2024 [facility]11-25-2024 Telephone encounter Note* Telephone Encounter - Lauren Arzola APRN.CNP - 04/16/2024 7:08 AM EST Update me Tuesday with readings. Lauren Arzola APRN.CNP [facility]11-23-2024 Note[facility]11-23-2024 History of Present illness Narrative* Usman Quesada [...] distress and family will self transport to [facility] documented in this encounterAdena F[facility] Center11-22-2024 Telephone encounter Note * Telephone Encounter - Mayela Hopson LPN - 04/13/2024 2:47 PM EST Phoned daughter Norah and went over notes from Lauren Arzola WHEEL CUTTER with understanding. Norah said father would not like to see pharmacist, she will try the increase in Lantus. [facility]11-22-2024 Telephone encounter Note* Telephone Encounter - Lauren Arzola APRN.LUZ - 04/13/2024 2:36 PM EST Increase Lantus to 37 units daily. Would he be willing to talk with our clinical pharmacist to helpwith managing his diabetic medications as it doesn't seem we are getting much better. Lauren Arzola APRN.LUZ [facility]11-22-2024 Telephone encounter Note* Telephone Encounter - Mayela Hopson LPN - 04/13/2024 2:31 PM EST Patient daughter Norah calling fathers blood sugar average is 306. She said he is not very active, his activity is going to dialysis 3 times a week. His Lantus is 33 units daily. Please advise [facility]11-15-2024 Telephone encounter Note* Telephone Encounter - Deborah Bedoya LPN - 04/06/2024 8:18 AM EST Patients daughter Norah telephoned, she is medical POA and will be bringing in paperwork. Providers recommendations below given. Voices understanding. Deborah Bedoya LPN [facility]11-15-2024 Miscellaneous Notes* Telephone Encounter - Deborah Bedoya [...] sooner if getting lows. Lauren Arzola APRN.CNP * Telephone Encounter - Mayela Hopson LPN - 04/05/2024 11:15 AM EST Patient daughter Norah calling to give WHEEL CUTTER her father blood sugar average since increased [...] dates with separate readings. documented in this encounterAdena [facility] Center11-15-2024 Telephone encounter Note * Telephone Encounter - [...] sooner if getting lows. Lauren Arzola APRN.CNP [facility]11-14-2024 Telephone encounter Note* Telephone Encounter - Mayela Hopson LPN - 04/05/2024 11:15 AM EST Patient daughter Norah calling to give WHEEL CUTTER her father blood sugar average since increased Lantus insulin to 29 units. She is not sure what date he increased his dose of Lantus, and if he is taking it daily. She said he is getting more forgetful. He usually takes his Lantus dose late afternoon. His Knok Gelacio reader gives an average blood sugar at 327. She said it does not give her dates with separate readings. [facility]11-06-2024 Instructions* Patient Instructions* Lauren Arzola APRN.CNP - 03/28/2024 1:09 PM EST Check blood sugars three times a day and as needed- update me in one week with readings, sooner if needed documented in this encounterAdena Fayette Medical Center11-06-2024 NoteSelect [facility]11-06-2024 History of Present illness Narrative* Lauren Arzola APRN.LUZ - 03/28/2024 12:55 PM EST 03/28/2024 Patient [...] changes, polyuria or polydipsia. Daughter concerned about endocrinology nurse giving him a diuretic She reports he [...] mouth once daily. Every other day Insulin [place], Disposable, (BD ULTRA-FINE SHAHEEN PEN NEEDLE) 32 [...] 11.1 oz) SpO2 98% BMI 34.25 kg/m .Vital signs reviewed by this provider. APPEARANCE Well [...] long-term current use of insulin ([facility]) - ICD9: 250.50, 362.05, 362.07, ICD10: E11.3313 [...] daughter they need to discuss concerns with endocrinology nurse, verbalizes understanding Lauren Arzola APRN.MIRROR MAKER Prescription instructions reviewed with patient as applicable. [...] Level: 4 - Moderate documented in this encounterAdena Fayette Medical Center08-16-2024 History of Present illness Narrative* Lauren Arzola [...] week. Follows with Dr. Faria Follows with [facility] cardiology for hx of Mobitz Type [...] stage renal disease) on dialysis ([facility]) Comment: Thai Moreno, Tiburcio No date: Glaucoma [...] edema associated with type 2 diabetes mellitus ([facility]) Comment: moderate, left macular edema-Dr. Jimenez No date: Type II or unspecified type diabetes mellitus without mention of complication, not stated as uncontrolled No date: Unspecified essential hypertension ALLERGIES Actos [Pioglitazone Hcl], Atenolol, Januvia [Sitagliptin], and Zocor [Simvastatin] MEDICATIONS Current Outpatient Medications Medication Sig insulin glargine (LANTUS SOLOSTAR U-100 INSULIN) 100 unit/mL (3 mL) Inject 25 Units subcutaneously once daily. flash glucose sensor (mobileoSTYLE GELACIO 2 SENSOR) kit 2 Each four [...] mouth once daily. Every other day Insulin [place], Disposable, (BD ULTRA-FINE SHAHEEN PEN NEEDLE) 32 [...] Advance Directive Discussion Never done Covid-19 Vaccine( - 2022- season) due on 06/24/2023 Hepatitis B Vaccine(9 [...] long-term current use of insulin ([facility]) - ICD9: 250.50, 362.04, 362.07, V58.67, ICD10: E11.3213, Z79.4 (primary diagnosis) - due for A1c - continue Lantus - not able to tolerate Ozempic due to GI side effects - mobileoSTYLE GELACIO 2 SENSOR KIT - COMPREHENSIVE METABOLIC [...] Level: 4 - Moderate documented in this encounterAdena Fayette Medical Center08-16-2024 NoteSelect [facility]07-25-2024 Telephone encounter Note* Telephone Encounter - Darlington RayBarryConcepcion - 12/15/2023 4:28 PM EDT Prescription Refill [...] good untilOctober. Please call daughter Norah Javier Darlington [facility] December 15, 2023 4:29 PM [facility]07-25-2024 Miscellaneous Notes* Telephone Encounter - Darlington Ray Concepcion - 12/15/2023 4:28 PM EDT Prescription Refill [...] prescription is good untilOctober. Please call francisco Javier Darlington [facility] December 15, 2023 4:29 PM documented in this encounterAdena Fayette Medical Center04-18-2024 Hospital Discharge instructions Patient Education 09/08/2023 14:39:24 [...] provider approves. General instructions Take or apply oprc-hyf-hmwrluq and prescription medicines only as told by [...] your health care provider. Take or apply itsk-yns-umnogfp and prescription medicines only as told by your health care provider. This includes any eye drops. This information is not intended to replace advice given to you by your health care provider. Make sure you discuss any questions you have with your health care provider. Document Released: 01/25/2012 Document Revised: 05/25/2019 Document Reviewed: 05/28/2019 Elsevier Patient Education 2019 [employer] Follow Up Care 09/06/2023 10:35:24 With:JEAN PIERRE ZIEGLER MD, [facility] Address: [address] [facility] [place] [address] [phone] When: Unknown Comments:Follow-up as scheduled [facility] 04-18-2024 Summary of episode note Discharge Instructions Thank you for allowing [facility] to assist you with your healthcare needs. The following is importantdischarge information regarding your hospital visit. What to do next Follow Up Appointments Follow Up with JEAN PIERRE ZIEGLER MD, [facility] When Why: Follow-up as scheduled Where: [facility] [address] [facility] [place] [address]- [phone] The Following Activity and Diet Have Been [...] provider approves. General instructions Take or apply mqsq-ack-khusldz and prescription medicines only as told by [...] your health care provider. Take or apply plkn-vlx-rijhojl and prescription medicines only as told by your health care provider. This includes any eye drops. This information is not intended to replace advice given to you by your health care provider. Make sure you discuss any questions you have with your health care provider. Document Released: 01/25/2012 Document Revised: 05/25/2019 Document Reviewed: 05/28/2019 Elsevier Patient Education 2020 [employer] Additional Information VACCINATE! IT SAVES LIVES! Members of the community who have not yet received the COVID-19 vaccine and would like to receive it can visit one of [facility] vaccine clinics. There are many vaccine clinic locations within the [facility]. For locations and available times, please visit [email or web address].coronavirus.[place].gov/. It is important to note that some COVID mobile vaccine clinics are held outdoors and may be canceled in rainy or stormy conditions. To learn more about pediatric vaccinations (ages 5-11), we invite you to visit the [facility] webpage. https://www.[email or web address]/pages/[email or web address]-Rcvixlaxuxw-Zwrxwvmndi-[email or web address] stions.htmlTo learn more about the COVID-19 vaccine, we invite you to visit the CDC website for a list of frequently asked questions.https://www.cdc.gov/coronavirus/2019-ncov/vaccines/faq.html [facility] Patient Portal Access Instructions: Stay connected with your healthcare team and access your personal medical information anytime with the [facility] Patient Portal. Please follow the directions below to create your [facility] account: 1.Access the email account you provided upon registration to the hospital/physician office.2.Look for an invitation email from [facility].3.Open the email and access the invitation link: AcceptInvitation to [facility].4.Fill in the required meyers to create your account. To access your account, visit [employer]nivioOneChart. Click the blue button labeled "Access Patient Portal" and then log in with the username and password that you created in the steps above. You will be able to view your test results, lab results, a summary of your visits, upcoming appointments and more. There is also a convenient messaging option where you can send secure messages to your p SweetPerkvider. In addition, you will have the ability to download any documents or summaries to your computer and/or send the information securely to a physician. Remember that your healthcare information is confidential, so carefully consider who you will allowto register on the [facility] Patient Portal for access to your information. You can also access the [facility] Patient Portal on the [facility] mani. Simply click on "Patient Portal" and then log into your account. If you would like to receive a full copy of your medical records, please contact the [facility] Medical Records Department by calling [phone], Tuesday through Tuesday between 8 a.m. and [...] Call your local pharmacy or go to [email or web address].[email or web address] to find one close to you.3.Make use of household items: Use cat litter or old coffee grounds to dispose medications if other options arenot available. Mix your drugs with these household products, seal them in an airtight container andthrow it into the garbage. Call [facility]: [phone] to be sure your drugs can be [...] that I should contact my do ctor. 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 Comments: 09/07/2023 8:24 ISABEL Marte RIGHT EYE Angioplasty ([id number]) in 2021 at 87 Years. Comments: 09/07/2023 10:11 ISABEL Marte LEFT UPPER EXTREMITY FISTULOGRA IWTH CUTTING BALLON ANGIOPLASTY Repair of inguinal hernia ([id number]). Comments: 09/07/2023 8:23 ISABEL Marte UNSURE OF LATERALITY, HAD IN THE LATE 1960'S OR EARLY S Extn - Extraction of tooth ([id number]). Comments: 09/07/2023 8:23 ISABEL Marte ALL TEETH REMOVED AV - Arteriovenous fistula ([id number]). Comments: 09/07/2023 10:06 ISABEL Marte LEFT ARM [...] Height 170.2 cm Admission Weight 98.7 kg [place] Body Weight 66.12 kg Type of Scale [...] Documentation reviewed: Current records. Assessment and Plan [place] [employer] Anesthesiologists (ASA) physical status classification: Class III. Anesthetic Preoperative Plan Premedication: intravenous. Anesthetic technique: General. Induction: intravenously. Maintenance airway: Oral endotracheal tube, RSI. Postoperative pain management: Per surgeon. Risks discussed: nausea, vomiting, headache, sore throat, dental injury, hypotension, allergic reaction, serious complications. Informed consent: signed by patient. Digitally Signed by JERMAINE SWANSON MD on 09/08/2023 12:14 PM [id number] Miscellaneous Notes* Telephone Encounter - Alanna Veloz [...] for a rx to be sent to [facility] please. Please advise documented in this encounterAdena Fayette Medical Center03-18-2024 Miscellaneous Notes* Telephone Encounter - Deborah Bedoya [...] calling: self Call patient at: at home [phone] (home) [phone] (cell) Was an appointment scheduled: No Closing statement: Results or non-symptom based questions: Thank you for calling [facility], your call will be returned within the next business day. Demetra Hughse documented in this encounterAdena Fayette Medical Center03-07-2024 Miscellaneous Notes* Telephone Encounter - Meredith Gonzalez [...] notify patient. Demetra Hughes documented in this encounterAdena Fayette Medical Center02-21-2024 Miscellaneous Notes* Telephone Encounter - Valerie Burris LPN - 07/13/2023 8:14 AM EST Spoke to Norah, daughter and message given that short term prescription was sent to the pharmacy. Valerie Burris LPN * Telephone Encounter - Lauren Arzola APRN.LUZ - 07/13/2023 6:58 AM EST New prescription sent to [facility] Lauren Arzola APRN.MIRROR MAKER * Telephone Encounter - Heike Lainez - 07/12/2023 8:44 AM EST Patient's daughter, Norah, said a mail order rx for Ozempic was sent in yesterday for this patient. Said patient is completely out of medication. Wants to know if a short term refill can be sent to [facility] in [place]. Do not cancel mail order rx. * [...] Thank you. Heike Hughes. documented in this encounterAdena [facility] Center02-19-2024 Miscellaneous Notes* Telephone Encounter - Marina Huffman [...] visit in primary care: 09/23/2023 Patient using [facility] mail order please send new RX to mail order Per [facility] patient has no refills Please advise. Thank you. Marina Anguiano. documented in this encounterAdena Fayette [facility] Center02-05-2024 History of Present illness Narrative* RayoDanilo callejas - 06/27/2023 11:34 AM EST Last saw [...] Objective: Patient presents to clinic ambulating in [facility] Vasc: DP and PT pulses are nonpalpable [...] long-term current use of insulin ([facility]) (primary encounter diagnosis) (B35.1) Onychomycosis (M79.672) Left [...] Care Patient presents for diabetic foot care. [facility]- 2. Patient tried cutting some of his toenails last week. Clipped 1st and 2nd toe. Swelling to bilateral legs, using zip up compression stockings. documented in this encounterAdena Fayette Medical Center02-05-2024 Instructions* Patient Instructions* Danilo Martines - 06/27/2023 [...] (or decreased sensation in your feet) a soccer player should always cut your toenails. Be Careful [...] Go to your health care provider or soccer player to treat these conditions. documented in this encounterAdena Fayette Medical Center10-24-2023 Miscellaneous Notes* Telephone Encounter - Mayela Hopson LPN - 03/15/2023 9:56 AM EDT Negar from [facility] requesting copy of immunization record for flu shot information be faxed to [phone]. Printed and faxed as requested. documented in this encounterAdena Fayette Medical Center10-17-2023 Miscellaneous Notes* Telephone Encounter - Mayela Hopson [...] patient's mail order pharmacy. Please send to [facility]. documented in this encounterAdena Fayette Medical Center10-05-2023 Miscellaneous Notes* Telephone Encounter - Margret Linares LPN - 02/24/2023 1:12 PM EDT Called the pharmacy and this was billed through insurance and picked up in 02/22/23. * Telephone Encounter - Margret Linares LPN - 02/24/2023 1:09 PM EDT PERLA THOMPSON (Figueroa: [id number]) Rx #: [id number] Ozempic (0.25 or 0.5 MG/DOSE) 2MG/3ML pen-injectors Form [employer] Electronic PA Form Created 3 days ago Sent to Plan 20 hours ago Plan Response 20 hours ago Submit Clinical Questions 20 hours ago Determination Favorable 1 hour ago Message from Plan PA Case: [id number], Status: Approved, Coverage Starts on: 02/24/2023 12:15:13 PM, Coverage Ends on: 02/24/2023 12:15:13 PM. Questions? Contact . documented in this encounterAdena Fayette Medical Center08-15-2023 Telephone encounter Note * Telephone Encounter - [...] week. Please review and advise. Magaly Bhakta [facility]08-15-2023 Miscellaneous Notes* Telephone Encounter - Magaly Bhakta [...] and advise. Magaly Bhakta documented in this encounterAdena Fayette Medical Center07-17-2023 Instructions* Patient Instructions* Lauren Arzola APRN.MIRROR MAKER - 12/06/2022 9:40 AM EDT WHAT YOU [...] review all the medicines you take, even pgav-ejf-ttaoftl medicines. As you get older, the way [...] have certain medical conditions. documented in this encounterAdena Fayette Medical Center07-17-2023 History of Present illness Narrative* Lauren Arzola [...] months CKD: Follows up with Dr. Khoury [facility]. Has dialysis three times a [...] 1 tablet by mouth once daily. Insulin [place], Disposable, (BD ULTRA-FINE SHAHEEN PEN NEEDLE) 32 [...] which included preparing to see the patient, ubwx-ca-xqqi patient care, completing clinical documentation, obtaining and/or reviewing separately obtained history, performing a medically appropriate examination, counseling and educating the pat ient/family/caregiver, and ordering medications, tests, or procedures. documented in this encounterAdena Fayette Medical Center06-26-2023 Miscellaneous Notes* Telephone Encounter - Liza Johnson [...] of Last Labs: 09/06/2022 documented in this encounterAdena Fayette Medical Center06-15-2023 Miscellaneous Notes* Telephone Encounter - RAY Ruvalcaba - 11/04/2022 11:15 AM EDT Patient's daughter called back in, the test strips are called [employer], they would like these sent to [facility] in [place]. Please review. RAY Ruvalcaba November 04, 2022 [...] testing strips to be sent to [facility]. Please review and advise, Liza Johnson RN documented in this encounterAdena Fayette Medical Center06-07-2023 Miscellaneous Notes* Telephone Encounter - Harper Fisher [...] and advise. Harper Fisher documented in this encounterAdena Fayette Medical Center04-17-2023 History of Present illness Narrative* Lauren Xielogerick, THERAPY ASSISTANT.MIRROR MAKER - 09/06/2022 9:50 AM EDT 09/06/2022 Patient [...] dialysis CKD: Follows up with Dr. Khoury [facility]. Has dialysis three times a [...] sugar(s) 2x daily. DxE11.65. Insulin: No. Insulin [place], Disposable, (BD ULTRA-FINE SHAHEEN PEN NEEDLE) 32 [...] follow-up with cardiology as scheduled Lauren Podlogar, THERAPY ASSISTANT.MIRROR MAKER Prescription instructions reviewed with patient as applicable. [...] which included preparing to see the patient, tnwz-yh-ihih patient care, completing clinical documentation, obtaining and/or reviewing separately obtained history, performing a medically appropriate examination, counseling and educating the pat ient/family/caregiver, and ordering medications, tests, or procedures. documented in this encounterAdena Fayette Medical Center03-30-2023 Miscellaneous Notes* Telephone Encounter - Aimee Nicole [...] Thank you. Aimee Nicole documented in this encounterAdena Fayette Medical Center01-17-2023 Miscellaneous Notes* Telephone Encounter - Lauren Arzola APRN.CNP - 06/08/2022 10:10 AM EST Ozempic sent to mail order. Lauren Arzola APRN.CNP * Telephone Encounter - Deborah Bedoya LPN - 06/08/2022 10:00 AM EST Patients daughter telephoned and notified of results and recommendations. Voices understanding. [facility] stated they wont have the ozempic until [...] will place referral order. documented in this encounterAdena Fayette Medical Center01-16-2023 History of Present illness Narrative* Husam Yan [...] sugar(s) 2x daily. DxE11.65. Insulin: No. Insulin [place], Disposable, (BD ULTRA-FINE SHAHEEN PEN NEEDLE) 32 [...] long-term current use of insulin ([facility]) - ICD9: 250.50, 362.05, 362.07, ICD10: E11.3313 [...] diet. Husam Yan MD documented in this encounterAdena Fayette Medical Center10-24-2022 Miscellaneous Notes* Telephone Encounter - Yamel Roe Ma - 03/15/2022 11:00 AM EDT Call to daughter, Norah notified her of message below, verbalized understanding. Yamel Roe Ma * Telephone Encounter - Husam Yan MD - 03/15/2022 10:19 AM EDT Reviewed. Would recommend checking his sugars when fasting and before bed and bring in readings to next OV. * Telephone Encounter - Breanne Carvalho RN - 03/15/2022 10:12 AM EDT Daughter, Norah, phoned to let pcp know, patient declined [...] new regimen. If agreeable, will call in Novolog/Humalog to his pharmacy. Kidney function in ESRD range. Continue with dialysis. Cholesterol looks good. documented in this encounterAdena Fayette Medical Center10-14-2022 History of Present illness Narrative* Husam Yan [...] with dialysis 3 days per week at [facility] as directed. albumin was low on his [...] stage renal disease) on dialysis ([facility]) , Th, Sat Glaucoma Dr Jimenez LBBB (left bundle [...] sugar(s) 2x daily. DxE11.65. Insulin: No. Insulin [place], Disposable, (BD ULTRA-FINE SHAHEEN PEN NEEDLE) 32 [...] vaccine - ICD9: V04.89, ICD10: Z23 - PFIZER-BIONTNetStreams COVID-19 BIVALENT BOOSTER VACCINE, AGE 12+ YR Husam Yan MD documented in this encounterAdena Fayette Medical Center09-19-2022 Miscellaneous Notes* Telephone Encounter - Deborah Bedoya LPN - 02/08/2022 9:58 AM EDT Daughter Norah notified. Voices understanding. Deborah Bedoya LPN * Telephone Encounter - Lauren Arzola APRN.CNP - 02/08/2022 9:30 AM EDT He may take the tresiba as ordered- it is a long acting insulin. I will sent another prescription as requested by [facility]. Lauren Arzola APRN.CNP * Telephone Encounter - Valerie Burris LPN - 02/08/2022 8:35 AM EDT Bernarda with [facility] called and they do cover Lantus and to send new rx to them today so they can fill for pt. Per Bernarda Pt was given a Generic from [facility]. Spoke with [facility] Pharmacist and Tresiba was given to the pt. Please advise francisco Almazan on what to do till medication Lantus [...] let daughter know [facility]. What insulin did they receive from [facility]. Thanks, Lauren Arzola APRN.LUZ * Telephone Encounter - Concepcion Hughes - 02/08/2022 8:09 AM EDT Daughter Norah is calling and she stated she needs to know what is going on because this was supposed to arrive from [facility]. Then a prescription went to [facility] and they filled something but it was not Lantus; patient is afraid to take the insulin because he does not know what it is. Patient is out of medication. Please call Norah, ; she needs to know what is going on. * Telephone Encounter - Catalina Babulski, RN - 02/03/2022 9:06 AM EDT Madhuri Suazo called in and is going to fax over PA information on the Glargine U100 to fax # [phone]. She is asking to have it faxed back to them. documented in this encounterAdena Fayette Medical Center09-13-2022 Miscellaneous Notes* Telephone Encounter - Alanna Veloz [...] ORDER RX REQUESTED ON 01/26/[address] [facility],PLEASE FILL THIS SOON POSSIBLE Patient aware RX will be sent to pharmacy. No need to notify patient. Marina FloydWellSpan Surgery [facility] Rehabilitation Hospitalse documented in this encounterAdena Fayette Medical Center09-06-2022 Miscellaneous Notes* Telephone Encounter - Harper Hughes [...] advise. Harper García Pss documented in this encounterAdena Fayette Medical Center07-25-2022 Miscellaneous Notes* Telephone Encounter - Amirah Bee [...] 02/2022 Last refill: 02/2021 documented in this encounterAdena Fayette Medical Center05-06-2022 Miscellaneous Notes* Telephone Encounter - Husam Yan MD - 09/25/2021 12:56 PM EDT Reviewed. * Telephone Encounter - Breanne Carvalho RN - 09/25/2021 12:42 PM EDT Daughter, Norah, returned call from pcp office. Reports patient received call also, but he won't return calls. Given provider's message below with verbalized understanding. Reports she will try to get patient to see endocrinology nurse, but doesn't think he will. Reports patient [...] week with his readings. 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 02/28/2020 Noncompliance with diet and medication regimen 1 06/17/2012 11/18/2016 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 04/07/2013 11/18/2016 Leg edema 07/14/2009 02/28/2020 documented as of this encounter (statuses as of 10/07/2021) [facility]07[facility]29[facility]2016 [facility] Past illness Narrative* Problem Noted Date Resolved Date 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 12/19/2015 04/26/2016 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 02/28/2020 Noncompliance with diet and medication regimen 1 06/17/2012 11/18/2016 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 04/07/2013 11/18/2016 Leg edema 07/14/2009 02/28/2020 documented as of this encounter (statuses as of 12/14/2021) [facility] of Past illness Narrative* Problem Noted Date Resolved Date 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 12/19/2015 04/26/2016 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 02/28/2020 Noncompliance with diet and medication regimen 1 06/17/2012 11/18/2016 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 04/07/2013 11/18/2016 Leg edema 07/14/2009 02/28/2020 documented as of this encounter (statuses as of 02/02/2022) [facility] of [facility] illness Narrative* Problem Noted Date Resolved Date 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 12/19/2015 04/26/2016 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 02/28/2020 Noncompliance with diet and medication regimen 1 06/17/2012 11/18/2016 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 04/07/2013 11/18/2016 Leg edema 07/14/2009 02/28/2020 documented as of this encounter (statuses as of 02/08/2022) [facility] of [facility] illness Narrative* Problem Noted Date Resolved Date 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 12/19/2015 04/26/2016 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 02/28/2020 Noncompliance with diet and medication regimen 1 06/17/2012 11/18/2016 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 04/07/2013 11/18/2016 Leg edema 07/14/2009 02/28/2020 documented as of this encounter (statuses as of 02/19/2022) [facility] of [facility] illness Narrative* Problem Noted Date Resolved Date 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 12/19/2015 04/26/2016 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 02/28/2020 Noncompliance with diet and medication regimen 1 06/17/2012 11/18/2016 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 04/07/2013 11/18/2016 Leg edema 07/14/2009 02/28/2020 documented as of this encounter (statuses as of 03/10/2022) [facility] Narrative* Problem Noted Date Resolved Date 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 12/19/2015 04/26/2016 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 02/28/2020 Noncompliance with diet and medication regimen 1 06/17/2012 11/18/2016 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 04/07/2013 11/18/2016 Leg edema 07/14/2009 02/28/2020 documented as of this encounter (statuses as of 03/15/2022) [facility] Narrative* Problem Noted [...] of this encounter (statuses as of 06/07/2022) [facility] Narrative* Problem Noted [...] of this encounter (statuses as of 06/08/2022) [facility] Narrative* Problem Noted [...] of this encounter (statuses as of 08/19/2022) [facility] Narrative* Problem Noted [...] of this encounter (statuses as of 09/06/2022) [facility] Narrative* Problem Noted [...] of this encounter (statuses as of 10/28/2022) [facility] Narrative* Problem Noted [...] of this encounter (statuses as of 11/04/2022) [facility] Narrative* Problem Noted [...] of this encounter (statuses as of 11/15/2022) [facility] Narrative* Problem Noted [...] of this encounter (statuses as of 12/06/2022) [facility] Narrative* Problem Noted [...] of this encounter (statuses as of 02/26/2023) [facility] Narrative* Problem Noted [...] of this encounter (statuses as of 03/08/2023) [facility] Narrative* Problem Noted [...] of this encounter (statuses as of 03/15/2023) [facility] Narrative* Problem Noted [...] of this encounter (statuses as of 06/27/2023) [facility] Narrative* Problem Noted [...] of this encounter (statuses as of 07/11/2023) [facility] Narrative* Problem Noted [...] of this encounter (statuses as of 07/13/2023) [facility] Narrative* Problem Noted [...] of this encounter (statuses as of 07/28/2023) [facility] Narrative* Problem Noted [...] of this encounter (statuses as of 08/08/2023) [facility] Narrative* Problem Noted [...] of this encounter (statuses as of 09/07/2023) [facility] CenterEvaluation [facility] No data available for this section [facility] Evaluation note* Diagnosis Onset Date Resolution Status Problem with dialysis access acute Problem with dialysis access acute [facility] Work Phone: Evaluation note* Diagnosis 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 edema, without long-term current use of insulin ([facility]) [facility] Diagnosis 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 edema, without long-term current use of insulin ([facility]) documented in this encounter [facility] note* Diagnosis 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 edema, without long-term current use of insulin ([facility]) documented in this encounter [facility] note* Diagnosis 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 edema, without long-term current use of insulin ([facility]) [facility]* Diagnosis 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 edema, without long-term current use of insulin ([facility])- Primary Essential hypertension Unspecified essential hypertension Mixed hyperlipidemia 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) End stage renal disease Need for COVID-19 vaccine documented in this encounter [facility] note* Diagnosis 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, without long-term current use of insulin ([facility])- Primary Essential hypertension Unspecified essential hypertension Mixed [...] long-term current use of insulin ([facility]) [facility]* Diagnosis 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, without long-term current use of insulin ([facility]) [facility]* Diagnosis 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, without long-term current use of insulin ([facility]) documented in this encounter [facility] note* Diagnosis 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, without long-term current use of insulin ([facility])- Primary 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) End stage renal disease Chronic diastolic heart failure (HCC) Chronic diastolic heart failure documented [facility] this encounter [facility]* Diagnosis 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 edema, without long-term current use of insulin ([facility]) documented in this encounter [facility]* Diagnosis 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, without long-term current use of insulin ([facility]) documented in this encounter [facility]* Diagnosis 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, without long-term current use of insulin ([facility])- Primary Lower extremity edema Edema 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) End stage renal disease Chronic diastolic heart failure (HCC) Chronic diastolic heart failure Essential hypertension Unspecified essential hypertension 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 At high risk for falls Personal history of fall documented in this encounter [facility]* Diagnosis 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, without long-term current use of insulin ([facility]) documented in this encounter [facility]* Diagnosis 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 edema, without long-term current use of insulin ([facility])- Primary Onychomycosis Dermatophytosis of nail Left foot pain Pain in limb Right foot pain Pain in limb documented [facility] this encounter [facility]* Diagnosis 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, without long-term current use of insulin ([facility]) documented in this encounter [facility]* Diagnosis 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, without long-term current use of insulin ([facility]) documented in this encounter [facility]* Diagnosis 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 edema, with long-term current use of insulin ([facility]) documented in this encounter [facility]* Diagnosis 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, without long-term current use of insulin ([facility]) [facility]* Diagnosis 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 edema, with long-term current use of insulin ([facility])- Primary 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) End stage renal disease Chronic diastolic heart failure (HCC) Chronic diastolic heart failure 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 Lower extremity edema Edema Essential hypertension Unspecified essential hypertension Mixed hyperlipidemia documented in this encounter [facility]* Diagnosis 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, without long-term current use of insulin ([facility]) documented in this encounter [facility] note* Diagnosis 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, acquired [facility]* Diagnosis 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, without long-term current use of insulin ([facility])- Primary 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) End stage renal disease documented in this encounter [facility]* Diagnosis Right foot infection- Primary Unspecified local infection of skin and subcutaneous tissue documented in this encounter [facility] note* Diagnosis 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, without long-term current use of insulin ([facility]) [facility] Additional Instructions CT scan of the brain showed no broken bones or internal bleeding. Give Tylenol as needed. Keep the small nasal wound clean. If symptoms worsen such as a severe headache, vomiting, confusion please return to the ER.[facility] Work Phone: Reason for referral (narrative)* Diagnostic Procedure Only (Routine) - Closed Specialty Diagnoses / Procedures Referred By Tay t Referred To Contact XR IMAGING Diagnoses Deformity of both feet Procedures XR FOOT GENERAL 3V AP/LAT/OBL BILAT X-RAY FOOT MINIMUM 3 VIEWS Husam Yan MD [address] [place] [address] [place] [address] Referral ID Status Reason Start Date Expiration Date V isits Requested Visits Authorized Closed Auto-Generate d Referral 03/04/2021 04/03/2022 1 1 [facility]No reason for referral information availableWMer[facility] Work Phone: Reason for visit Narrative* Diagnostic Procedure Only (Routine) - Closed Specialty Diagnoses / Procedures Referred By Contac t Referred To Contact XR IMAGING Diagnoses Deformity of both feet Procedures XR FOOT GENERAL 3V AP/LAT/OBL BILAT X-RAY FOOT MINIMUM 3 VIEWS Husam Yan MD [address] [place] [address] [place] [address] Referral ID Status Reason Start Date Expiration Date V isits Requested Visits Authorized Closed Auto-Generate d Referral 03/04/2021 04/03/2022 1 1 [facility] Chief Complaint and Reason for Visit Chief Complaint L ARM DIALYSIS CATH LOW ADEQUECY LOW ACCESS FLOW DIALYSIS ACCESS COMPLICATION DIALYSIS ACCESS COMPLICATION Reason for Visit Problem with dialysi s access Problem with dialysis access Chief Complaint Admit Date [facility] LAB WORK June 06, 2024 5:00am 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 June 06, 2024 5:57am POST-OP EXAM June 06, 2024 2 :32pm LABWORK June 08, 2024 5 :00am [facility] WORK June 11, 2024 5:00am LAB [...] 30am WOUND August 20, 2024 1:5 9pm [facility] WORK August 27, 2024 4: 00am [...] 5:48pm Chronic osteomyelitis of right foot Febr [email or web address] 5:48pm Cutaneous abscess of right foot [...] chronic disease August 29 1:06pm 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 August 29, 2024 1:06pm Wound, open, foot August 29, 2024 1:06 pm 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 September 24, 2024 9:58am Chief Complaint Admit Date [facility] WORK June 06, 2024 5:00am 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 June 06, 2024 5:57am POST-OP EXAM June 06, 2024 2 :32pm LABWORK June 08, 2024 5 :00am [facility] WORK June 11, 2024 5:00am LAB [...] 30am WOUND August 20, 2024 1:5 9pm [facility] WORK August 27, 2024 4: 00am [...] chronic disease August 29 1:06pm 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 [...] 30am WOUND August 20, 2024 1:5 9pm [facility] WORK August 27, 2024 4: 00am WOUND August 27, 2024 8:23 am WOUND August 27, 2024 9:27 am RE-ADMISSION EXAM September 05, 2024 5:4 0pm LABWORK September 10, 2024 5:0 0am LABWORK September 12, 2024 5:0 0am LABWORK September 24, 2024 5:00am WOUND September 24, 2024 9:58am WOUND September 24, 2024 11:01a m Remove hola/Amp 08/29/2024 October 03, 025 8:55am 2 WK FU October 17, [...] chronic disease August 29 1:06pm 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 [...] 30am WOUND August 20, 2024 1:5 9pm [facility] WORK August 27, 2024 4: 00am [...] 2024 5:00a m Remove hola/Amp 08/29/2024 October 03 2 025 8:55am 2 WK FU October [...] 5:48pm Chronic osteomyelitis of right foot Febr [email or web address] 5:48pm Cutaneous abscess of right foot [...] chronic disease August 29 1:06pm 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 [...] 30am WOUND August 20, 2024 1:5 9pm [facility] WORK August 27, 2024 4: 00am WOUND August 27, 2024 8:23 am WOUND August 27, 2024 9:27 am RE-ADMISSION EXAM September 05, 2024 5:4 0pm LABWORK September 10, 2024 5:0 0am LABWORK September 12, 2024 5:0 0am [facility] WORK September 17, 2024 4 :00am LABWORK September 24, 2024 5:00am WOUND September 24, 2024 9:58am WOUND September 24, 2024 11:01a m LABWORK October 02, 2024 5:00a m Remove hola/Amp 08/29/2024 October 03, 2 025 8:55am [facility] WORK October 08, 2024 4:0 0am [facility] WORK October 16, 2024 5:0 0am 2 WK FU October 17, 2024 10:05 am [facility] WORK October 29, 2024 4:0 0am 1 Y FU October 29, 2024 9:45a m fall November 08, 2024 7:35 pm Reason for Visit Admit Date End stage renal disease July 13 025 [...] chronic disease August 29 1:06pm 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 [...] 30am WOUND August 20, 2024 1:5 9pm [facility] WORK August 27, 2024 4: 00am WOUND August 27, 2024 8:23 am WOUND August 27, 2024 9:27 am RE-ADMISSION EXAM September 05, 2024 5:4 0pm LABWORK September 10, 2024 5:0 0am LABWORK September 12, 2024 5:0 0am [facility] WORK September 17, 2024 4 :00am LABWORK September 24, 2024 5:00am WOUND September 24, 2024 9:58am WOUND September 24, 2024 11:01a m LABWORK October 02, 2024 5:00a m Remove hola/Amp 08/29/2024 October 03, 2 025 8:55am [facility] WORK October 08, 2024 4:0 0am [facility] WORK October 16, 2024 5:0 0am 2 WK FU October 17, 2024 10:05 am [facility] WORK October 22, 2024 5:0 0am [facility] WORK October 29, 2024 4:0 0am [...] chronic disease August 29 1:06pm 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[place] ira artery of righ t leg with gangrene [...] 2024 10:05 am Chronic diastolic (congestive) heart eseqiuel lure October 29, 2024 9:45am Essential (primary) hypertension October 9:45am Sinus bradycardia October 29, 2024 9:45a m Chief Complaint Admit Date LABWORK August 13, 2024 5:0 0am WOUND August 13, 2024 9:0 2pm MONTHLY EXAM August 14, 2024 9:4 8pm LAB WORK August 20, 2024 5:0 0am WOUND August 20, 2024 10: 30am WOUND August 20, 2024 1:5 9pm [facility] WORK August 27, 2024 4: 00am WOUND August 27, 2024 8:23 am WOUND August 27, 2024 9:27 am RE-ADMISSION EXAM September 05, 2024 5:4 0pm LABWORK September 10, 2024 5:0 0am LABWORK September 12, 2024 5:0 0am [facility] WORK September 17, 2024 4 :00am LABWORK September 24, 2024 5:00am WOUND September 24, 2024 9:58am WOUND September 24, 2024 11:01a m LABWORK October 02, 2024 5:00a m Remove hola/Amp 08/29/2024 October 03, 2 025 8:55am [facility] WORK October 08, 2024 4:0 0am [facility] WORK October 16, 2024 5:0 0am MONTHLY EXAM October 16, 2024 5:30p m 2 WK FU October 17, 2024 10:05 am [facility] LAB WORK October 22, 2024 5:0 0am [facility] WORK October 29, 2024 4:0 0am [...] 30am WOUND August 20, 2024 1:5 9pm [facility] WORK August 27, 2024 4: 00am WOUND August 27, 2024 8:23 am WOUND August 27, 2024 9:27 am RE-ADMISSION EXAM September 05, 2024 5:4 0pm LABWORK September 10, 2024 5:0 0am LABWORK September 12, 2024 5:0 0am [facility] WORK September 17, 2024 4 :00am LABWORK September 24, 2024 5:00am WOUND September 24, 2024 9:58am WOUND September 24, 2024 11:01a m LABWORK October 02, 2024 5:00a m Remove hola/Amp 08/29/2024 October 03, 2 025 8:55am [facility] WORK October 08, 2024 4:0 0am [facility] WORK October 16, 2024 5:0 0am MONTHLY EXAM October 16, 2024 5:30p m 2 WK FU October 17, 2024 10:05 am [facility] WORK October 22, 2024 5:0 0am [facility] WORK October 29, 2024 4:0 0am 1 Y FU October 29, 2024 9:45a m MONTHLY EXAM November 02, 2024 5:00 pm LABWORK November 05, 2024 5:00 am fall November 08, 2024 7:35 pm [facility] WORK November 12, 2024 5: 00am bradycardia November 22, 2024 8:44a m Family History No Family History Records Found Relationship Condition Age at Onset Recorded Date/T laila mother Hypertension Unknown father Diabetes mellitus Unknown Chronic obstructive pulmonary disease Unk nown Advance Directives No Advanced Directives Records FoundDocuments on File Type Date 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 Advance Directive(s) 07/03/2024 11:50 AM Date Activated Date Inactivated Comments 11/23/2024 5:43 AM 11/28/2024 2:55 PM Question Answer Comments Full Code Order Discussed With: Patient Advance Directive Response Recorded Date/ Time Advance Directives on File No November 06, 2021 9:22am Name of Medical Power of Tow Bar Driver Arian Thompson November 06, 2021 9:22am Advance Directives Yes November 06 9:22am Living Will Yes November 06, 2021 9:22am Power of Tow Bar Driver Yes November 06 9:22am Advance Directive Response Recorded Date/ Time Living Will Yes July 02 2:52pm Do you have a Healthcare Pow er of Tow Bar Driver? Yes July 02, 2024 2:52pm Name of Medical Power of Tow Bar Driver NORAH GATES July 02, 2024 2:52pm Living Will Yes July 03 3:50pm Do you have a Healthcare Pow er of Tow Bar Driver? Yes July 03, 2024 3:50pm Name of Medical Power of Tow Bar Driver jacinda stack July 03, 2024 3:50pm Living Will Yes July 07 7:28pm Do you have a Healthcare Pow er of Tow Bar Driver? Yes July 07, 2024 7:28pm Name of Medical Power of Tow Bar Driver maurice gates- daughter July 07, 2024 7:28pm Living Will Yes July 13 7:33pm Do you have a Healthcare Pow er of Tow Bar Driver? Yes July 13, 2024 7:33pm Name of Medical Power of Tow Bar Driver Jacinda avila July 13, 2024 7:33pm Living Will Yes August 28, 2024 8:57am Do you have a Healthcare Pow er of Tow Bar Driver? Yes August 28, 2024 8:57am Name of Medical Power of Tow Bar Driver NORAH GATES August 28, 2024 8:57am Living Will No June 04 2:32pm Do you have a Healthcare Pow er of Tow Bar Driver? No June 04, 2024 2:32pm Living Will Yes August 01, 2024 1:12pm Do you have a Healthcare Pow er of Tow Bar Driver? Yes August 01, 2024 1:12pm Name of Medical Power of Tow Bar Driver Jacinda Gates - dght August 01, 2024 1:12pm Advance Directives Yes April 11:29am Advance Directive Response Recorded Date/ Time Living Will Yes July 02, 025 2:52pm Do you have a Healthcare Pow er of Tow Bar Driver? Yes July 02, 2024 2:52pm Name of Medical Power of Tow Bar Driver NORAH GATES July 02, 2024 2:52pm Living Will Yes July 03 025 3:50pm Do you have a Healthcare Pow er of Tow Bar Driver? Yes July 03, 2024 3:50pm Name of Medical Power of Tow Bar Driver jacinda gates July 03, 2024 3:50pm Living Will Yes July 07, 025 7:28pm Do you have a Healthcare Pow er of Tow Bar Driver? Yes July 07, 2024 7:28pm Name of Medical Power of Tow Bar Driver maurice gates- daughter July 07, 2024 7:28pm Living Will Yes July 13, 025 7:33pm Do you have a Healthcare Pow er of Tow Bar Driver? Yes July 13, 2024 7:33pm Name of Medical Power of Tow Bar Driver Jacinda avila July 13, 2024 7:33pm Living Will Yes August 28, 2024 8:57am Do you have a Healthcare Pow er of Tow Bar Driver? Yes August 28, 2024 8:57am Name of Medical Power of Tow Bar Driver NORAH GATES August 28, 2024 8:57am Living Will Yes August 01, 2024 1:12pm Do you have a Healthcare Pow er of Tow Bar Driver? Yes August 01, 2024 1:12pm Name of Medical Power of Tow Bar Driver Jacinda Gilbert - seble August 01, 2024 1:12pm Advance Directives Yes April 11:29am Advance Directive Response Recorded Date/ Time Living Will Yes November 06, 2021 9:22am Do you have a Healthcare Pow er of Tow Bar Driver? Yes November 06, 2021 9:22am Living Will Yes July 13 7:33pm Do you have a Healthcare Pow er of Tow Bar Driver? Yes July 13, 2024 7:33pm Name of Medical Power of Tow Bar Driver Jacinda Luna k July 13, 2024 7:33pm Living Will Yes August 28, 2024 8:57am Do you have a Healthcare Pow er of Tow Bar Driver? Yes August 28, 2024 8:57am Name of Medical Power of Tow Bar Driver NORAH GATES August 28, 2024 8:57am Do you have a Healthcare Pow er of Tow Bar Driver? No November 08, 2024 7:39pm Living Will Yes August 01, 2024 1:12pm Do you have a Healthcare Pow er of Tow Bar Driver? Yes August 01, 2024 1:12pm Name of Medical Power of Tow Bar Driver Jacinda Gates - [email or web address] August 01, 2024 1:12pm Advance Directives Yes April 11:29am Advance Directive Response Recorded Date/ Time Living Will Yes November 06, 2021 9:22am Do you have a Healthcare Pow er of Tow Bar Driver? Yes November 06, 2021 9:22am Living Will Yes August 28, 2024 8:57am Do you have a Healthcare Pow er of Tow Bar Driver? Yes August 28, 2024 8:57am Name of Medical Power of Tow Bar Driver NORAH GATES August 28, 2024 8:57am Do you have a Healthcare Pow er of Tow Bar Driver? No November 08, 2024 7:39pm Do you have a Healthcare Pow er of Tow Bar Driver? Yes November 22, 2024 12:42pm Living Will Yes August 01, 2024 1:12pm Do you have a Healthcare Pow er of Tow Bar Driver? Yes August 01, 2024 1:12pm Name of Medical Power of Tow Bar Driver Jacinda Gates - seble August 01, 2024 1:12pm Advance Directives Yes April 11:29am Advance Directive Response Recorded Date/ Time Living Will Yes November 06, 2021 9:22am Do you have a Healthcare Power of Tow Bar Driver? Yes November 06, 2021 9:22am Living Will Yes August 28, 2024 8:57am Do you have a Healthcare Power of Tow Bar Driver? Yes August 28, 2024 8:57am Name of Medical Power of Tow Bar Driver NORAH GATES August 28, 2024 8:57am Do you have a Healthcare Power of Tow Bar Driver? No November 08, 2024 7:39pm Do you have a Healthcare Power of Tow Bar Driver? Yes November 22, 2024 12:42pm Advance Directives Yes April 11:29am Reason for Referral Specialty Diagnoses / Procedures Referred By Tay aguilar Referred To Contact Diagnoses 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 edema, without long-term current use of insulin ([facility]) Lauren Arzola APRN.[employer] [address] [place] [address] Referral ID Status Reason Start Date Expiration Date V isits Requested Visits Authorized [id number] Pending Review 1 1 Referral ID Status Reason Start Date Expiration Date Visits Re quested Visits Authorized [id number] Closed 1 1 Specialty Diagnoses / Procedures Referred By Tay aguilar Referred To Contact Diagnoses 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, without long-term current use of insulin ([facility]) Lauren Arzola APRN.[employer] [address] [place] [address] Referral ID Status Reason Start Date Expiration Date V isits Requested Visits Authorized [id number] Authorized 1 1 Summary Purpose Additional Source Comments Source Comments (unrecognize d section and content) In the event this informatio n is protected by the Federal Confidentiality of Alcohol and Drug Abuse Patient Records regulations: The Federal rules restrict any use of the information to criminally investigate or prosecute any alcohol or drug abuse patient.[facility] the event this information is protected by the Federal Confidentiality of Alcohol and Drug Abuse Patient Records regulations: The Federal rules restrict any use of the information to criminally investigate or prosecute any alcohol or drug abuse patient.[facility] the event this information is protected by the Federal Confidentiality of Alcohol and Drug Abuse Patient Records regulations: The Federal rules restrict any use of the information to criminally investigate or prosecute any alcohol or drug abuse patient.[facility] the event this information is protected by the Federal Confidentiality of Alcohol and Drug Abuse Patient Records regulations: The Federal rules restrict any use of the information to criminally investigate or prosecute any alcohol or drug abuse patient.[facility]In the event this information is protected by the Federal Confidentiality of Alcohol and Drug Abuse Patient Records regulations: The Federal rules restrict any use of the information to criminally investigate or prosecute any alcohol or drug abuse patient.[facility] CenterIn the event this information is protected by the Federal Confidentiality of Alcohol and Drug Abuse Patient Records regulations: The Federal rules restrict any use of the information to criminally investigate or prosecute any alcohol or drug abuse patient.[facility] CenterIn the event this information is protected by the Federal Confidentiality of Alcohol and Drug Abuse Patient Records regulations: The Federal rules restrict any use of the information to criminally investigate or prosecute any alcohol or drug abuse patient.[facility] CenterIn the event this information is protected by the Federal Confidentiality of Alcohol and Drug Abuse Patient Records regulations: The Federal rules restrict any use of the information to criminally investigate or prosecute any alcohol or drug abuse patient.[facility] CenterIn the event this information is protected by the Federal Confidentiality of Alcohol and Drug Abuse Patient Records regulations: The Federal rules restrict any use of the information to criminally investigate or prosecute any alcohol or drug abuse patient.[facility] CenterIn the event this information is protected by the Federal Confidentiality of Alcohol and Drug Abuse Patient Records regulations: The Federal rules restrict any use of the information to criminally investigate or prosecute any alcohol or drug abuse patient.[facility] CenterIn the event this information is protected by the Federal Confidentiality of Alcohol and Drug Abuse Patient Records regulations: The Federal rules restrict any use of the information to criminally investigate or prosecute any alcohol or drug abuse patient.[facility] CenterIn the event this information is protected by the Federal Confidentiality of Alcohol and Drug Abuse Patient Records regulations: The Federal rules restrict any use of the information to criminally investigate or prosecute any alcohol or drug abuse patient.[facility] CenterIn the event this information is protected by the Federal Confidentiality of Alcohol and Drug Abuse Patient Records regulations: The Federal rules restrict any use of the information to criminally investigate or prosecute any alcohol or drug abuse patient.[facility] the event this information is protected by the Federal Confidentiality of Alcohol and Drug Abuse Patient Records regulations: The Federal rules restrict any use of the information to criminally investigate or prosecute any alcohol or drug abuse patient.[facility] CenterIn the event this information is protected by the Federal Confidentiality of Alcohol and Drug Abuse Patient Records regulations: The Federal rules restrict any use of the information to criminally investigate or prosecute any alcohol or drug abuse patient.[facility] CenterIn the event this information is protected by the Federal Confidentiality of Alcohol and Drug Abuse Patient Records regulations: The Federal rules restrict any use of the information to criminally investigate or prosecute any alcohol or drug abuse patient.[facility] CenterIn the event this information is protected by the Federal Confidentiality of Alcohol and Drug Abuse Patient Records regulations: The Federal rules restrict any use of the information to criminally investigate or prosecute any alcohol or drug abuse patient.[facility] CenterIn the event this information is protected by the Federal Confidentiality of Alcohol and Drug Abuse Patient Records regulations: The Federal rules restrict any use of the information to criminally investigate or prosecute any alcohol or drug abuse patient.[facility] CenterIn the event this information is protected by the Federal Confidentiality of Alcohol and Drug Abuse Patient Records regulations: The Federal rules restrict any use of the information to criminally investigate or prosecute any alcohol or drug abuse patient.[facility] CenterIn the event this information is protected by the Federal Confidentiality of Alcohol and Drug Abuse Patient Records regulations: The Federal rules restrict any use of the information to criminally investigate or prosecute any alcohol or drug abuse patient.[facility] CenterIn the event this information is protected by the Federal Confidentiality of Alcohol and Drug Abuse Patient Records regulations: The Federal rules restrict any use of the information to criminally investigate or prosecute any alcohol or drug abuse patient.[facility] CenterIn the event this information is protected by the Federal Confidentiality of Alcohol and Drug Abuse Patient Records regulations: The Federal rules restrict any use of the information to criminally investigate or prosecute any alcohol or drug abuse patient.[facility] CenterIn the event this information is protected by the Federal Confidentiality of Alcohol and Drug Abuse Patient Records regulations: The Federal rules restrict any use of the information to criminally investigate or prosecute any alcohol or drug abuse patient.[facility] CenterIn the event this information is protected by the Federal Confidentiality of Alcohol and Drug Abuse Patient Records regulations: The Federal rules restrict any use of the information to criminally investigate or prosecute any alcohol or drug abuse patient.[facility] CenterIn the event this information is protected by the Federal Confidentiality of Alcohol and Drug Abuse Patient Records regulations: The Federal rules restrict any use of the information to criminally investigate or prosecute any alcohol or drug abuse patient.[facility] CenterIn the event this information is protected by the Federal Confidentiality of Alcohol and Drug Abuse Patient Records regulations: The Federal rules restrict any use of the information to criminally investigate or prosecute any alcohol or drug abuse patient.[facility] CenterIn the event this information is protected by the Federal Confidentiality of Alcohol and Drug Abuse Patient Records regulations: The Federal rules restrict any use of the information to criminally investigate or prosecute any alcohol or drug abuse patient.[facility] CenterIn the event this information is protected by the Federal Confidentiality of Alcohol and Drug Abuse Patient Records regulations: The Federal rules restrict any use of the information to criminally investigate or prosecute any alcohol or drug abuse patient.[facility] CenterIn the event this information is protected by the Federal Confidentiality of Alcohol and Drug Abuse Patient Records regulations: The Federal rules restrict any use of the information to criminally investigate or prosecute any alcohol or drug abuse patient.[facility] CenterIn the event this information is protected by the Federal Confidentiality of Alcohol and Drug Abuse Patient Records regulations: The Federal rules restrict any use of the information to criminally investigate or prosecute any alcohol or drug abuse patient.[facility] CenterIn the event this information is protected by the Federal Confidentiality of Alcohol and Drug Abuse Patient Records regulations: The Federal rules restrict any use of the information to criminally investigate or prosecute any alcohol or drug abuse patient.[facility] CenterIn the event this information is protected by the Federal Confidentiality of Alcohol and Drug Abuse Patient Records regulations: The Federal rules restrict any use of the information to criminally investigate or prosecute any alcohol or drug abuse patient.[facility] CenterIn the event this information is protected by the Federal Confidentiality of Alcohol and Drug Abuse Patient Records regulations: The Federal rules restrict any use of the information to criminally investigate or prosecute any alcohol or drug abuse patient.[facility] CenterIn the event this information is protected by the Federal Confidentiality of Alcohol and Drug Abuse Patient Records regulations: The Federal rules restrict any use of the information to criminally investigate or prosecute any alcohol or drug abuse patient.[facility] CenterIn the event this information is protected by the Federal Confidentiality of Alcohol and Drug Abuse Patient Records regulations: The Federal rules restrict any use of the information to criminally investigate or prosecute any alcohol or drug abuse patient.[facility] the event this information is protected by the Federal Confidentiality of Alcohol and Drug Abuse Patient Records regulations: The Federal rules restrict any use of the information to criminally investigate or prosecute any alcohol or drug abuse patient.[facility] Center[facility] the event this information is protected by the Federal Confidentiality of Alcohol and Drug Abuse Patient Records regulations: The Federal rules restrict any use of the information to criminally investigate or prosecute any alcohol or drug abuse patient.[facility] Center[facility] the event this information is protected by the Federal Confidentiality of Alcohol and Drug Abuse Patient Records regulations: The Federal rules restrict any use of the information to criminally investigate or prosecute any alcohol or drug abuse patient.[facility] Reason for Visit (unrecogniz ed section and [...] Authorization Reason Comments Medication Problem Reason Comments [facility] requesting recor ds Reason Comments Established Patient [...] Date Comments Population Health Navigation Outreach 04/23/2024 [employer]Workbench/Desiree Reason Comments Patient Update Fill out Surgical Release Forms Reason Onset Date Comments Population Health Navigation Outreach 06/11/2024 [employer] workbench desiree Reason Onset Date Comments Refill Request 07/09/2024 Reason Onset Date Comments Population Health Navigation Outreach 07/11/2024 [employer] workbench desiree Reason Comments Courtesy call Device survey Care Teams (unrecognized sec tion and content) Team Status: Active Member Role Status Dates Dr. Nando Wiggins MD Primary Care Provider Active Team Status: Inactive Member Role Status Dates Dr. Nando Wiggins MD Primary Care Provider Active Start: July 13, 2024 End: July 13, 2024 Meredith Guevara WHEEL CUTTER, WHEEL CUTTER-C Attending Provider Active Start: July 13, 2024 [...] 2024 End: July 31, 2024 Meredith Guevara WHEEL CUTTER, WHEEL CUTTER-C Attending Provider Active Start: July 31, 2024 End: July 31, 2024 Team Status: Inactive Member Role Status Dates Dr. Nando Wiggins MD Primary Care Provider Active Start: August 01, 2024 End: August 01, 2024 Meredith Guevara WHEEL CUTTER, WHEEL CUTTER-C Attending Provider Active Start: August 01, 2024 [...] Active Start : August 31, 2024 Dr. Leel White MD Referring Provider [...] End: September 05, 2024 Meredith Guevara NP, WHEEL CUTTER-C Attending Provider Active Start: September 05, 2024 [...] 2024 End: October 29, 2024 Pooja Ruano WHEEL CUTTER, WHEEL CUTTER-C Attending Provider Active Start: October 29, 2024 [...] 2024 End: July 02, 2024 Meredith Guevara WHEEL CUTTER, WHEEL CUTTER-C Attending Provider Active Start: July 02, 2024 [...] End: July 10, 2024 Meredith Guevara NP, WHEEL CUTTER-C Attending Provider Active Start: July 10, 2024 [...] Attending Provider Active Start: October 08, 2024 Rn Med Surg Relationship Specialty Start Date End Date Husam Yan MD [address] [place] [address] PCP - General Family Practice 10/14/16 Rn Med Surg Relationship Specialty Start Date End Date Husam Yan MD [address] [place] [address] PCP - General Family Practice 10/14/16 Rn Med Surg Relationship Specialty Start Date End Date Husam Yan MD [address] [place] [address] PCP - General Family Practice 10/14/16 Rn Med Surg Relationship Specialty Start Date End Date Husma Yan MD [address] [place] [address] PCP - General Family Practice 10/14/16 Rn Med Surg Relationship Specialty Start Date End Date Husam Yan MD [address] [place] [address] PCP - General Family Medicine 10/14/16 Rn Med Surg Relationship Specialty Start Date End Date Husam Yan MD [address] [place] [address] PCP - General Family Medicine 10/14/16 Rn Med Surg Relationship Specialty Start Date End Date Husam Yan MD [address] [place] [address] PCP - General Family Medicine 10/14/16 Rn Med Surg Relationship Specialty Start Date End Date Husam Yan MD [address] [place] [address] PCP - General Family Medicine 10/14/16 Rn Med Surg Relationship Specialty Start Date End Date Husam Yan MD [address] [place] [address] PCP - General Family Medicine 10/14/16 Rn Med Surg Relationship Specialty Start Date End Date Husam Yan MD [address] [place] [address] PCP - General Family Medicine 10/14/16 Rn Med Surg Relationship Specialty Start Date End Date Husam Yan MD [address] [place] [address] PCP - General Family Medicine 10/14/16 Rn Med Surg Relationship Specialty Start Date End Date Husam Yan MD [address] [place] [address] PCP - General Family Medicine 10/14/16 Rn Med Surg Relationship Specialty Start Date End Date Husam Yan MD [address] [place] [address] PCP - General Family Medicine 10/14/16 Rn Med Surg Relationship Specialty Start Date End Date Husam Yan MD [address] [place] [address] PCP - General Family Medicine 10/14/16 Rn Med Surg Relationship Specialty Start Date End Date Husam Yan MD [address] [place] [address] PCP - General Family Medicine 10/14/16 Rn Med Surg Relationship Specialty Start Date End Date Husam Yan MD [address] [place] [address] PCP - General Family Medicine 10/14/16 Rn Med Surg Relationship Specialty Start Date End Date Husam Yan MD [address] [place] [address] PCP - General Family Medicine 10/14/16 Rn Med Surg Relationship Specialty Start Date End Date Husam Yan MD [address] [place] [address] PCP - General Family Medicine 10/14/16 Rn Med Surg Relationship Specialty Start Date End Date Huasm Yan MD [address] [place] [address] PCP - General Family Medicine 10/14/16 Rn Med Surg Relationship Specialty Start Date End Date Husam Yan MD [address] [place] [address] PCP - General Family Medicine 10/14/16 Rn Med Surg Relationship Specialty Start Date End Date Husam Yan MD [address] [place] [address] PCP - General Family Medicine 10/14/16 Rn Med Surg Relationship Specialty Start Date End Date Husam Yan MD [address] [place] [address] PCP - General Family Medicine 10/14/16 Rn Med Surg Relationship Specialty Start Date End Date Husam Yan MD [address] [place] [address] PCP - General Family Medicine 10/14/16 Rn Med Surg Relationship Specialty Start Date End Date Husam Yan MD [address] [place] [address] PCP - General Family Medicine 10/14/16 Rn Med Surg Relationship Specialty Start Date End Date Husam Yan MD [address] [place] [address] PCP - General Family Medicine 10/14/16 PodlogarLauren APRN.MIRROR MAKER [address] [place] [address] [facility] 04/28/24 Rn Med Surg Relationship Specialty Start Date End Date Husam Yan MD [address] [place] [address] PCP - General Family Medicine 10/14/16 PodlogarLauren APRN.MIRROR MAKER [address] [place] [address] [employer] Family Medicine 04/28/24 Rn Med Surg Relationship Specialty Start Date End Date Husam Yan MD [address] [place] [address] PCP - General Family Medicine 10/14/16 PodlogarLauren APRN.MIRROR MAKER [address] [place] [address] [facility] 04/28/24 Team Status: Inactive Member Role [...] 2024 End: June 06, 2024 Meredith Guevara NP, WHEEL CUTTER-C Attending Provider Active Start: June 06, 2024 [...] 2024 End: July 31, 2024 Meredith Guevara WHEEL CUTTER, WHEEL CUTTER-C Attending Provider Active Start: July 31, 2024 End: July 31, 2024 Team Status: Inactive Member Role/Relationship Status Dates Dr. Nando Wiggins MD Primary Care Provider Active Start: August 01, 2024 End: August 01, 2024 Meredith Guevara WHEEL CUTTER, WHEEL CUTTER-C Attending Provider Active Start: August 01, 2024 [...] Other Provider Active Start: September 01, 2024 RKISTOFER Hernández Attending Provider Active Star t: September [...] 2024 End: September 05, 2024 Meredith Guevara WHEEL CUTTER, WHEEL CUTTER-C Attending Provider Active Start: September 05, 2024 [...] 2024 End: October 29, 2024 Pooja Ruano WHEEL CUTTER, WHEEL CUTTER-C Attending Provider Active Start: October 29, 2024 [...] S tart: September 03, 2024 Dr. Lele Whtie MD Other Provider Active Start : September [...] 2024 End: September 05, 2024 Meredith Guevara WHEEL CUTTER, WHEEL CUTTER-C Attending Provider Active Start: September 05, 2024 [...] 2024 End: October 18, 2024 Dr. Nando Wgigins MD Primary Care Provider Active Start: September 24, 2024 End: October 18, 2024 Dr. Randal Damico MD Attending Provider Active Start: September 24, 2024 End: October 18, 2024 Team Status: Active Member Role/Relationship Status Dates Dr. Warern Menodza DPM Referring Provider Active Start: September 24, [...] 2024 End: October 29, 2024 Pooja Ruano WHEEL CUTTER, WHEEL CUTTER-C Attending Provider Active Start: October 29, 2024 [...] 2024 End: November 02, 2024 Meredith Guevara NP, WHEEL CUTTER-C Attending Provider Active Start: November 02, 2024 [...] November 22, 2024 End: November 23, 2024 Rn Med Surg Relationship Specialty Start Date End Date Husam Yan MD [address] [place], [place] [address] PCP - General Family Medicine 10/14/16 Lauren Arzola APRN.MIRROR MAKER [address] [place], [place] [address] [employer] Family Medicine 04/28/24 Yesenia Yi APRN.MIRROR MAKER [address] [place], [place] [address] [employer] [facility] 11/01/24 Goals (unrecognized section and content) Goals may be documented in a n alternate section No data available for this section (unrecognized sect ion and content) No Status Records FoundNo Status Records FoundNo Status Records Found INFORMATION SOURCE (unrecogn ized section and content) DATE CREATED AUTHOR 09/16/2023 [facility] DATE CREATED AUTHOR AUTHOR'S ORGANIZ ATION 12/13/2024 [facility] DATE CREATED AUTHOR AUTHOR'S ORGANIZ ATION 12/16/2024 [facility] FOR RECORDS PERTAINING TO PATIENTS WHO ARE [...] BE BASED ON THE PRIMARY CLINICAL RECORDS. [facility] [employer] [facility]. provides no warranty or guarantee of the accuracy or completeness of information in this document.
[2024-12-19 08:22] LABS: AST(SGOT) 16 U/L (<=37); Alanine Aminotransfer ALT/SGPT 30 U/L (<=46); Albumin, Serum 3.6 g/dL (3.4-4.8); Alkaline Phosphatase 69 U/L (40-129); Bilirubin, Direct 0.12 mg/dL (0.00-0.30); Globulin 3.0 g/dL (2.2-4.2)
[2024-12-19 08:49] LABS: Vitamin B12 777 pg/mL (180-914); Vitamin D,25 Hydroxy 47.0 ng/mL (30-100)
== END ==
LOC: OLS.WHLEAS 05:00
PROVIDERS: PCP Internal Medicine; Visit Provider Internal Medicine
DX: E11.22 Type 2 diabetes mellitus with diabetic chronic kidney disease (principal); N18.6 End stage renal disease
CPT/HCPCS: 36415; 80076; 82306; 82607; 83036

== ENCOUNTER → 2024-12-24 | Outpatient (REF) | payer MEDICARE, SELFPAY ==
[2024-12-24 08:54] LABS: Hematocrit 31.5 % (40-54); Hemoglobin 10.0 g/dL (13.0-16.5); Immature Granulocytes Count 0.050 X10^3/uL (0.0-0.0); Mean Corp Hgb Conc 31.7 g/dL (32-36); Mean Corpuscular Volume 91.3 fL (80-94); Mean Platelet Vol. 11.6 fl (6.2-12.0); NRBC Flagged by Analyzer 0 % (0-5); Platelet Count 180 K/mm3 (150-450); RBC Distribution Width CV 15.2 % (11.6-14.6); RBC Distribution Width SD 50.7 fl (35.1-43.9); Red Blood Count 3.45 M/mm3 (4.6-6.2); White Blood Count 8.6 K/mm3 (4.4-11.0)
[2024-12-24 09:08] LABS: Anion Gap 16 (5-15); BUN 52 mg/dL (4-19); BUN/Creat Ratio 9.7 RATIO (10-20); Calcium,Total 9.1 mg/dL (7.6-11.0); Carbon Dioxide 25.2 mmol/L (21.0-32.0); Chloride 93 mmol/L (98-108); Glucose 131 mg/dL (70-99); Potassium 4.6 mmol/L (3.3-5.1)
== END ==
LOC: OLS.WHLEAS 05:00
PROVIDERS: PCP Internal Medicine; Visit Provider Internal Medicine
DX: E11.42 Type 2 diabetes mellitus with diabetic polyneuropathy (principal)
CPT/HCPCS: 36415; 80048; 85025

== ENCOUNTER → 2025-01-23 05:00 | Outpatient (REF) | payer MEDICARE, SELFPAY ==
[2025-01-23 07:38] LABS: Hematocrit 31.3 % (40-54); Hemoglobin 10.0 g/dL (13.0-16.5); Immature Granulocytes Count 0.040 X10^3/uL (0.0-0.0); Mean Corp Hgb Conc 31.9 g/dL (32-36); Mean Corpuscular Volume 95.7 fL (80-94); Mean Platelet Vol. 11.7 fl (6.2-12.0); NRBC Flagged by Analyzer 0 % (0-5); Platelet Count 173 K/mm3 (150-450); RBC Distribution Width CV 15.7 % (11.6-14.6); RBC Distribution Width SD 54.7 fl (35.1-43.9); Red Blood Count 3.27 M/mm3 (4.6-6.2); White Blood Count 7.4 K/mm3 (4.4-11.0)
[2025-01-23 07:55] LABS: Anion Gap 14 (5-15); BUN 43 mg/dL (4-19); BUN/Creat Ratio 9.7 RATIO (10-20); Calcium,Total 8.7 mg/dL (7.6-11.0); Carbon Dioxide 27.0 mmol/L (21.0-32.0); Chloride 92 mmol/L (98-108); Glucose 201 mg/dL (70-99); Potassium 4.1 mmol/L (3.3-5.1)
== END ==
LOC: OLS.WHLEAS 05:00
PROVIDERS: PCP Internal Medicine; Visit Provider Internal Medicine
DX: E11.22 Type 2 diabetes mellitus with diabetic chronic kidney disease (principal); E11.42 Type 2 diabetes mellitus with diabetic polyneuropathy; N18.6 End stage renal disease; I48.0 Paroxysmal atrial fibrillation; Z95.0 Presence of cardiac pacemaker; M62.561 Muscle wasting and atrophy, not elsewhere classified, right lower leg; M62.562 Muscle wasting and atrophy, not elsewhere classified, left lower leg
CPT/HCPCS: 36415; 80048; 85025

== ENCOUNTER 2025-01-25 15:40 | Inpatient (IN) | payer MEDICARE, MEDICAID, SELFPAY ==
[2025-01-25 15:27] VITALS: BP 131/60; PULSE 63; RESP 16; TEMP 36.4; O2SAT 92; BMI 31.3
--- NOTE | 2025-01-25 15:39 | RAD_ITS ---
EXAM: XR Right Hip With Pelvis When Performed, 2 or 3 Views CLINICAL INDICATION: FALL TECHNIQUE: Two or three views of the right hip with pelvis when performed. COMPARISON: No relevant prior studies available. FINDINGS: BONES/JOINTS: Comminuted impacted right intertrochanteric fracture. No dislocation. SOFT TISSUES: Soft tissue swelling. RAD/HIP, UNI W/ Pelvis 2-3 Views IMPRESSION: Comminuted impacted right intertrochanteric fracture. Reading Location: [id number]
--- NOTE | 2025-01-25 15:40 | EDS_ITS ---
HPI History of Present Illness Chief Complaint: Lower Extremity Injury Narrative Narrative: 89-year-old male past medical history of diabetes, right BKA remotely, presents from correction facility status post fall. History and physical is mildly limited secondary to memory problems. According to his relative, he usually leans forward out of the recliner. 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 He fell forward and onto his right hip and now has pain with palpation and movement of his right hip. He is a dialysis patient and receives dialysis every Tuesday, , and Tuesday. Additionally, he does take Eliquis for atrial fibrillation. He did not hit his head or lose consciousness, denies any neck pain, no other symptoms. See fentanyl per squad. 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 Wound, open, foot End stage renal disease MRSA (methicillin resistant staph aureus) culture positive Cutaneous abscess of right foot Diabetic infection of right foot Acute hyperkalemia Open wound Lives in penitentiary Dietary restriction History of stress test History of echocardiogram Cardiology follow-up encounter History of atrial fibrillation Insulin dependent diabetes mellitus Other specified peripheral vascular diseases Type 2 diabetes mellitus with diabetic polyneuropathy Atherosclerosis of [place] artery of extremity with ulceration ESRD (end stage renal disease) Type 2 diabetes mellitus with foot ulcer Diabetes mellitus with diabetic 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 Pre-op testing Loose, teeth Wears glasses Cancer Dialysis patient Kidney disease Non-smoker Edema Syncope Chronic diastolic (congestive) heart failure (04/18/20) Paroxysmal atrial fibrillation Sinus bradycardia Type 2 diabetes mellitus Hyperkalemia Swelling of both lower extremities HLD (hyperlipidemia) Left bundle-branch block 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 Abnormal electrocardiogram Home Medications ?Medication ?Instructions ?Recorded ?Last Taken ?Type aspirin 81 mg tablet,delayed 81 mg PO DAILY heart heal th 07/01/20 08/28/24 History release (Adult Aspirin Regimen) torsemide 100 mg tablet 100 mg PO MOWEFR water pill 04/14/24 08/27/24 History sennosides 8.6 mg-docusate sodium 1 tab-cap PO BID PRN PRN 06/04/24 06/05/24 History 50 mg tablet (Stimulant Laxative Constipation Plus) cholecalciferol (vitamin D3) 125 125 mcg PO DAILY SUPP LEMENT 07/13/24 08/28/24 History mcg (5,000 unit) capsule benzocaine 15 mg-menthol 3.6 mg 2 mariaa mucous membrane Q2H PRN PRN 07/20/24 Unknown Rx lozenges (Sore Throat (benzocaine sore throat #0 ea with menthol)) apixaban 2.5 mg tablet (Eliquis) 2.5 mg PO BID #180 ta bs 10/30/24 Unknown Rx acetaminophen 500 mg capsule 1,000 mg PO Q8H PRN PRN f ever or 11/22/24 Unknown History pain calcium acetate(phosphat bind) 667 667 mg PO TID 01/25 Unknown History mg capsule dulaglutide 0.75 mg/0.5 mL 1.5 mg subcut .Qtuesday 10/14 Unknown History subcutaneous pen injector (Trulicity) insulin glargine 100 unit/mL (3 14 unit subcut DAILY d iabetes 01/25/25 Unknown History mL) subcutaneous pen vitamin B complex-vitamin C-folic 1 tab PO DAILY 01/25 Unknown History acid 400 mcg tablet Allergy/AdvReac Type Severity Reaction Status Date / Time pioglitazone (From Actos) Allergy fatigue Verified 11/22/24 08:49 simvastatin (From Zocor) Allergy myalgia Verified 11/22/24 08:49 sitagliptin (From Januvia) Allergy unknown Verified 11/22/24 08:49 Family History Mother Hypertension Father Diabetes COPD (chronic obstructive pulmonary disease) Surgical History Hx of amputation History of incision and drainage Hx of foot surgery History of cataract extraction History of ligation of vein History of arteriovenostomy for renal dialysis History of inguinal hernia repair History of appendectomy Social History housing: penitentiary current occupational status: retired Smoking Status: Never smoker alcohol intake: never substance use type: does not use caffeine: Yes Type: coffee Number of servings: 1 what type of physical activity do you participate in: none seatbelt use: always do you feel safe at home: Yes ROS ROS ED ROS Narrative Review of systems positive for right hip pain status post fall out of recliner onto right hip. No hitting of head, no loss of consciousness, no neck pain, denies other injuries. EXAM Physical Exam Narrative Exam Narrative: Afebrile. Vital signs noted. Nontoxic-appearing. Cardiovascular examination feels regular rate and rhythm. Clear to auscultation bilaterally anteriorly. Abdomen soft and nontender with positive bowel sounds, no guarding or rebound. Awake, alert, oriented to person, at baseline per relative. Diffuse tenderness to palpation right hip, positive pain with logrolling of right femur. No crepitance. Pelvis otherwise stable. Const Vital Signs: 01/25/25 15:27 01/25/25 17:00 Temperature 97.5 F L Temperature Source Oral Pulse Rate 63 90 Respiratory Rate 16 16 Blood Pressure 131/60 H 125/73 H Blood Pressure Mean 83 90 Pulse Ox 92 90 Oxygen Delivery Method Room Air Nasal Cannula MDM MDM MDM Narrative Medical decision making narrative: Differential diagnosis includes but not limited to fracture of right hip/proximal femur versus pubic ramus fracture versus hip contusion. His relative does state that he has a low tolerance for pain. He was given an additional 50 mcg of fentanyl and x-rays obtained of the right hip with pelvis and interpreted by myself independently. On my independent interpretation, he has an intertrochanteric fracture of the hip that is comminuted. I reviewed the radiology report which confirms my independent interpretation. On my independent interpretation of his chest x-ray preoperatively, there is vascular congestion but no consolidation. I reviewed the radiology report which confirms my independent interpretation as well. I ordered preoperative laboratories including CBC and BMP. On my review hemoglobin stable at 9.9, normal white count, platelet count normal at 164, chloride low at 97 with BUN of 47 and creatinine 5.11 consistent with his need for dialysis/end-stage renal disease, glucose 213 with a normal anion gap of 13. Blood type is a positive. I discussed the patient with Dr. Gunter with orthopedics who is agreeable for the patient to be admitted here to the hospitalist. I then discussed the patient with Dr. Jayla Osuna for admission. Patient is in stable condition. History & Record Review Discussion w/independent historian: Patient and Family Lab Data Attestation: I reviewed the patient's lab results. Labs: Laboratory Results - last 24 hr 01/25/25 01/25/25 15:28 16:35 WBC 6.8 RBC 3.16 L Hgb 9.9 L Hct 29.9 L MCV 94.6 H MCH 31.3 MCHC 33.1 RDW Std Deviation 54.0 H RDW Coeff of Frances 15.5 H Plt Count 164 MPV 10.6 Immature Gran % (Auto) 0.400 Neut % (Auto) 68.9 Lymph % (Auto) 18.0 L [place] % (Auto) 9.6 Eos % (Auto) 2.4 Baso % (Auto) 0.7 Absolute Neuts (auto) 4.7 Absolute Lymphs (auto) 1.22 Nucleated RBC % 0 Sodium 136 Potassium 4.4 Chloride 97 L Carbon Dioxide 27.0 Anion Gap 13 BUN 47 H Creatinine 5.11 H Estim Creat Clear Calc 12.02 L Est GFR (MDRD) Non-Af 10 L BUN/Creatinine Ratio 9.3 L Glucose 213 H Calcium 8.9 Blood Type A POSITIVE Antibody Screen NEGATIVE Radiography Chest X-Ray - ED: Read by ED Physician, Read by Radiologist and CHF X-Ray: Right Hip, Read by ED Physician and Fracture Diagnostic Testing: Clinical Impression(s) from Imaging Studies Hip/Pelvis X-Ray 01/25/25 15:39 IMPRESSION: Comminuted impacted right intertrochanteric fracture. Reading Location: [facility] Chest X-Ray 01/25/25 15:57 IMPRESSION: Low lung volumes. Congestion. Reading Location: [facility] Management Discussion w/another healthcare provider: Hospitalist (Dr. Osuna) and Front Elevator Operator (Dr. Gunter) Discharge Plan Dx/Rx/DC Orders Clinical Impression: Fall, Closed hip fracture, Current use of tank terminal gauger anticoagulation, End stage renal disease Disposition Disposition: Acute Care Hospital [facility] Discharge Date/Time: 01/25/25 18:37
--- NOTE | 2025-01-25 15:57 | RAD_ITS ---
EXAM: XR Chest, 1 View CLINICAL INDICATION: PRE OP HIP FX TECHNIQUE: Frontal view of the chest. COMPARISON: No relevant prior studies available. FINDINGS: LUNGS AND PLEURAL SPACES: Low lung volumes. Congestion. No consolidation. No pneumothorax. HEART: Unremarkable. No cardiomegaly. MEDIASTINUM: Unremarkable. Normal mediastinal contour. BONES/JOINTS: Unremarkable. No acute fracture. RAD/Chest 1 View IMPRESSION: Low lung volumes. Congestion. Reading Location: [id number]
--- NOTE | 2025-01-25 16:26 | EKG12_ITS ---
Test Reason : FALL Blood Pressure : */* mmHG Vent. Rate : 60 BPM Atrial Rate : 52 BPM P-R Int : * ms QRS Dur : 176 ms QT Int : 520 ms P-R-T Axes : * 45 83 degrees QTcB Int : 520 ms Ventricular-paced rhythm Abnormal ECG Confirmed by DAVID AVILA, BRADY ([id number]), editorial cartoonist EVENS KEVIN ([id number]) on 01/28/2025 9:11:38 AM Referred By: Confirmed By: BRADY HERNANDEZ MD
[2025-01-25 16:42] LABS: Hematocrit 29.9 % (40-54); Hemoglobin 9.9 g/dL (13.0-16.5); Immature Granulocytes Count 0.030 X10^3/uL (0.0-0.0); Mean Corp Hgb Conc 33.1 g/dL (32-36); Mean Corpuscular Volume 94.6 fL (80-94); Mean Platelet Vol. 10.6 fl (6.2-12.0); NRBC Flagged by Analyzer 0 % (0-5); Platelet Count 164 K/mm3 (150-450); RBC Distribution Width CV 15.5 % (11.6-14.6); RBC Distribution Width SD 54.0 fl (35.1-43.9); Red Blood Count 3.16 M/mm3 (4.6-6.2); White Blood Count 6.8 K/mm3 (4.4-11.0)
--- NOTE | 2025-01-25 16:44 | CON.PCM.OR_ITS ---
HPI Consult Data Date of Consult: 01/25/25 HPI Narrative HPI Narrative: PERLA LUBIN, is a 89 M who presents with a right hip fracture, in the setting of a prior below knee amp on that side. 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 Wound, open, foot End stage renal disease MRSA (methicillin resistant staph aureus) culture positive Cutaneous abscess of right foot Diabetic infection of right foot Acute hyperkalemia Open wound Lives in retirement Dietary restriction History of stress test History of echocardiogram Cardiology follow-up encounter History of atrial fibrillation Insulin dependent diabetes mellitus Other specified peripheral vascular diseases Type 2 diabetes mellitus with diabetic polyneuropathy Atherosclerosis of [place] artery of extremity with ulceration ESRD (end stage renal disease) Type 2 diabetes mellitus with foot ulcer Diabetes mellitus with diabetic 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 Pre-op testing Loose, teeth Wears glasses Cancer Dialysis patient Kidney disease Non-smoker Edema Syncope Chronic diastolic (congestive) heart failure (04/18/20) Paroxysmal atrial fibrillation Sinus bradycardia Type 2 diabetes mellitus Hyperkalemia Swelling of both lower extremities HLD (hyperlipidemia) Left bundle-branch block 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 Abnormal electrocardiogram Home Medications ?Medication ?Instructions ?Recorded ?Last Taken ?Type aspirin 81 mg tablet,delayed 81 mg PO DAILY heart heal th 07/01/20 08/28/24 History release (Adult Aspirin Regimen) torsemide 100 mg tablet 100 mg PO MOWEFR water pill 04/14/24 08/27/24 History insulin glargine 100 unit/mL (3 20 unit (0.2 mL) subcu t DINNER 04/24/24 08/28/24 Rx mL) subcutaneous pen diabetes 30 days #0 mL insulin lispro 100 unit/mL See Protocol subcut ACHS dm 05/04/24 08/28/24 History subcutaneous pen (Humalog KwikPen (U-100) Insulin) sennosides 8.6 mg-docusate sodium 1 tab-cap PO BID PRN PRN 06/04/24 06/05/24 History 50 mg tablet (Stimulant Laxative Constipation Plus) cholecalciferol (vitamin D3) 125 125 mcg PO DAILY SUPP LEMENT 07/13/24 08/28/24 History mcg (5,000 unit) capsule insulin lispro 100 unit/mL 10 unit subcut TID DIABETES 07/13/24 08/28/24 History subcutaneous pen albuterol sulfate 2.5 mg/3 mL 2.5 mg (3 mL) inhalation Q2H PRN 07/20/24 Unknown Rx (0.083 %) solution for nebulization PRN SOB &/OR WHEEZ ING #0 mL benzocaine 15 mg-menthol 3.6 mg 2 mariaa mucous membrane Q2H PRN PRN 07/20/24 Unknown Rx lozenges (Sore Throat (benzocaine sore throat #0 ea with menthol)) menthol 0.44 %-zinc oxide 20.6 % 1 applic topical BID SKIN 07/20/24 08/28/24 Rx topical ointment (Calmoseptine) IRRITATION #0 grams nut.tx.gluc.intol,lac-free,soy 240 ml PO DAILY PRN SUP PLEMENT 10/29/24 Unknown History (Glucerna oral liquid) apixaban 2.5 mg tablet (Eliquis) 2.5 mg PO BID #180 ta bs 10/30/24 Unknown Rx acetaminophen 500 mg capsule 1,000 mg PO Q8H PRN PRN f ever or 11/22/24 Unknown History pain Allergy/AdvReac Type Severity Reaction Status Date / Time pioglitazone (From Actos) Allergy fatigue Verified 11/22/24 08:49 simvastatin (From Zocor) Allergy myalgia Verified 11/22/24 08:49 sitagliptin (From Januvia) Allergy unknown Verified 11/22/24 08:49 Family History Mother Hypertension Father Diabetes COPD (chronic obstructive pulmonary disease) Surgical History Hx of amputation History of incision and drainage Hx of foot surgery History of cataract extraction History of ligation of vein History of arteriovenostomy for renal dialysis History of inguinal hernia repair History of appendectomy Social History housing: retirement current occupational status: retired Smoking Status: Never smoker alcohol intake: never substance use type: does not use caffeine: Yes Type: coffee Number of servings: 1 what type of physical activity do you participate in: none seatbelt use: always do you feel safe at home: Yes Vital Signs Vital Signs Vital Signs: 01/25/25 15:27 Temperature 97.5 F L Temperature Source Oral Pulse Rate 63 Respiratory Rate 16 Blood Pressure 131/60 H Blood Pressure Mean 83 Pulse Ox 92 Oxygen Delivery Method Room Air Weight Weight: 218 lb 7.649 oz Body Mass Index (BMI) 31.3 Lab / Micro Data 01/25/25 16:35 01/25/25 15:28 Labs: Laboratory Results - last 24 hr 01/25/25 16:35: WBC 6.8, RBC 3.16 L, Hgb 9.9 L, Hct 29.9 L, MCV 94.6 H, MCH 31.3, MCHC 33.1, RDW Std Deviation 54.0 H, RDW Coeff of Frances 15.5 H, Plt Count 164, MPV 10.6, Immature Gran % (Auto) 0.400, Neut % (Auto) 68.9, Lymph % (Auto) 18.0 L, [place] % (Auto) 9.6, Eos % (Auto) 2.4, Baso % (Auto) 0.7, Absolute Neuts (auto) 4.7, Absolute Lymphs (auto) 1.22, Nucleated RBC % 0 Imaging Radiology Impression Hip/Pelvis X-Ray 01/25/25 15:39 IMPRESSION: Comminuted impacted right intertrochanteric fracture. Reading Location: [facility] Chest X-Ray 01/25/25 15:57 IMPRESSION: Low lung volumes. Congestion. Reading Location: [facility] Assessment & Plan Assessment/Plan (1) Closed right hip fracture: PLAN: 89 yr man right IT hip fracture. Recommend for long IM nail. Challenge to control the reduction without a foot, and given many other med problems, and on blood thinners. Need hospitalist clearance and anesthesia opinion before proceeding with surgery. Will order femur and tibia xrays to assess prior to surgery - likely manual traction or shanz / traction pin in the proximal tibia or distal femur for reduction control while nailing the fracture. MEGAN for now.
[2025-01-25] MEDS: fentaNYL 100 MCG/2 ML Ampul 50 MCG IV (16:50)
[2025-01-25 16:52] LABS: Anion Gap 13 (5-15); BUN 47 mg/dL (4-19); BUN/Creat Ratio 9.3 RATIO (10-20); Calcium,Total 8.9 mg/dL (7.6-11.0); Carbon Dioxide 27.0 mmol/L (21.0-32.0); Chloride 97 mmol/L (98-108); Estimated Creatinine Clearance 12.02 ml/min (50-250); Glucose 213 mg/dL (70-99); Potassium 4.4 mmol/L (3.3-5.1)
[2025-01-25 17:00] VITALS: BP 125/73; PULSE 90; RESP 16; O2SAT 90
--- NOTE | 2025-01-25 17:56 | PCM.HP.STD ---
HPI - General General Date of Admission: 01/25/25 Date of Service: 01/25/25 Chief Complaint: Right leg pain HPI Narrative PERLA LUBIN, is a 89-year-old male history of type 2 diabetes, right BKA, end-stage renal disease on hemodialysis, diabetes, PAD, history chronic heart failure with preserved ejection fraction who presented to [facility] ED 01/25/2025 due to a fall. Reportedly he fell out of his recliner and onto his right hip and had significant pain. In the ED temp 97.5, heart rate 63, blood pressure 131/68, respiratory rate 16 pulse ox 92% on room air. CBC in the ED white count of 6.8, hemoglobin 9.9, BMP with a BUN of 47 and a creatinine 5.11, glucose 213, patient had hip and pelvis x-ray which showed comminuted impacted right intertrochanteric fracture. Ortho consulted and recommended hospitalist admit with Ortho consult. Patient evaluated with family members at bedside, patient denies any complaints other than his right leg hurting significantly, denying any cough or shortness of breath, notes his mouth is dry and wants something to drink. 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 Cancer Cardiology follow-up encounter Chronic diastolic (congestive) heart failure (04/18/20) Closed right hip fracture Cutaneous abscess of right foot Diabetes mellitus with diabetic polyneuropathy Diabetic infection of right foot Dialysis patient Dietary restriction Edema End stage renal disease ESRD (end stage renal disease) History of atrial fibrillation History of echocardiogram History of stress test HLD (hyperlipidemia) Hyperkalemia Insulin dependent diabetes mellitus Kidney disease Left bundle-branch block Lives in [facility] Loose, teeth 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 MRSA (methicillin resistant staph aureus) culture positive Neuropathic ulcer of right foot with fat layer exposed Non-smoker Open wound Other specified peripheral vascular diseases Paroxysmal atrial fibrillation Pre-op testing Presence of leadless cardiac pacemaker Sinus bradycardia Swelling of both lower extremities Syncope Type 2 diabetes mellitus Type 2 diabetes mellitus with diabetic polyneuropathy Type 2 diabetes mellitus with foot ulcer Wears glasses Wound, open, foot Home Medications ?Medication ?Instructions ?Recorded ?Last Taken ?Type aspirin 81 mg tablet,delayed 81 mg PO DAILY heart health 07/01/20 08/28/24 History release (Adult Aspirin Regimen) torsemide 100 mg tablet 100 mg PO MOWEFR water pill 04/14/24 08/27/24 History sennosides 8.6 mg-docusate sodium 1 tab-cap PO BID PRN PRN 06/04/24 06/05/24 History 50 mg tablet (Stimulant Laxative Constipation Plus) cholecalciferol (vitamin D3) 125 125 mcg PO DAILY SUPPLEMENT 07/13/24 08/28/24 History mcg (5,000 unit) capsule benzocaine 15 mg-menthol 3.6 mg 2 mariaa mucous membrane Q2H PRN PRN 07/20/24 Unknown Rx lozenges (Sore Throat (benzocaine sore throat #0 ea with menthol)) apixaban 2.5 mg tablet (Eliquis) 2.5 mg PO BID #180 tabs 10/30/24 Unknown Rx acetaminophen 500 mg capsule 1,000 mg PO Q8H PRN PRN fever or 11/22/24 Unknown History pain calcium acetate(phosphat bind) 667 667 mg PO TID 01/25/25 Unknown History mg capsule dulaglutide 0.75 mg/0.5 mL 1.5 mg subcut .Qtuesday 01/25/25 Unknown History subcutaneous pen injector (Trulicity) insulin glargine 100 unit/mL (3 14 unit subcut DAILY diabetes 01/25/25 Unknown History mL) subcutaneous pen vitamin B complex-vitamin C-folic 1 tab PO DAILY 01/25/25 Unknown History acid 400 mcg tablet Allergy/AdvReac Type Severity Reaction Status Date / Time pioglitazone (From Actos) Allergy fatigue Verified 11/22/24 08:49 simvastatin (From Zocor) Allergy myalgia Verified 11/22/24 08:49 sitagliptin (From Januvia) Allergy unknown Verified 11/22/24 08:49 Family History Mother Hypertension Father Diabetes COPD (chronic obstructive pulmonary disease) Surgical History History of appendectomy History of arteriovenostomy for renal dialysis History of cataract extraction History of incision and drainage History of inguinal hernia repair History of ligation of vein Hx of amputation Hx of foot surgery Social History housing: [facility] current occupational status: retired Smoking Status: Never smoker alcohol intake: never substance use type: does not use caffeine: Yes Type: coffee Number of servings: 1 what type of physical activity do you participate in: none seatbelt use: always do you feel safe at home: Yes ROS ROS Narrative General: Denies fever/chills HENT: Denies headache, denies stuffy nose, denies sore throat, notes dry mouth EYES: Denies changes in vision Resp: Denies cough, denies shortness of breath Cardiac: Denies chest pain GI: Denies abdominal pain, denies changes in bowel, denies nausea/vomiting : Minimal urination with dialysis Extremity: Denies new swelling MSK: Significant right leg pain Neuro: Denies any numbness/tingling Heme: Denies any bleeding or bruising Skin: Denies rashes Psychiatric: Patient very painful Vital Signs Vital Signs Vital Signs: 01/25/25 15:27 01/25/25 17:00 Temperature 97.5 F L Temperature Source Oral Pulse Rate 63 90 Respiratory Rate 16 16 Blood Pressure 131/60 H 125/73 H Blood Pressure Mean 83 90 Pulse Ox 92 90 Oxygen Delivery Method Room Air Nasal Cannula Weight Weight: 99.1 kg Body Mass Index (BMI) 31.3 Physical Exam Narrative General: Alert, appears uncomfortable HEENT: normocephalic Eyes: Anicteric, normal conjunctiva, extraocular movements grossly intact Neck: Supple Respiratory: Slightly tachypneic, diminished bilaterally Cardiovascular: Regular rate GI: Soft, nontender, nondistended Extremities: No significant pitting edema Musculoskeletal: Right BKA, not moving extremity secondary to pain Neuro: No overt focal neurological deficits Skin: No rashes appreciated Psych: Patient irritable and painful Results Lab / Micro Data 01/25/25 16:35 01/25/25 15:28 Labs: Laboratory Results - last 24 hr 01/25/25 15:28: Sodium 136, Potassium 4.4, Chloride 97 L, Carbon Dioxide 27.0, Anion Gap 13, BUN 47 H, Creatinine 5.11 H, Estim Creat Clear Calc 12.02 L, Est GFR (MDRD) Non-Af 10 L, BUN/Creatinine Ratio 9.3 L, Glucose 213 H, Calcium 8.9 01/25/25 16:35: WBC 6.8, RBC 3.16 L, Hgb 9.9 L, Hct 29.9 L, MCV 94.6 H, MCH 31.3, MCHC 33.1, RDW Std Deviation 54.0 H, RDW Coeff of Frances 15.5 H, Plt Count 164, MPV 10.6, Immature Gran % (Auto) 0.400, Neut % (Auto) 68.9, Lymph % (Auto) 18.0 L, [place] % (Auto) 9.6, Eos % (Auto) 2.4, Baso % (Auto) 0.7, Absolute Neuts (auto) 4.7, Absolute Lymphs (auto) 1.22, Nucleated RBC % 0 Imaging Radiology Impression Hip/Pelvis X-Ray 01/25/25 15:39 IMPRESSION: Comminuted impacted right intertrochanteric fracture. Reading Location: [facility] Chest X-Ray 01/25/25 15:57 IMPRESSION: Low lung volumes. Congestion. Reading Location: [facility] Assessment & Plan Assessment/Plan (1) Closed right hip fracture: PLAN: Plan # Right intertrochanteric fracture -Hip and pelvis x-ray which showed comminuted impacted right intertrochanteric fracture -Ortho consult -Hold blood thinners per Ortho recs -Eliquis and aspirin on hold -Supportive care -N.p.o. at midnight -Patient remains at high risk for surgical intervention given significant comorbidities including type 2 diabetes, end-stage renal disease on hemodialysis, chronic heart failure with preserved ejection fraction. Patient is above average surgical risk based on the NSQIP with higher than average risk of mortality and elevated risk of serious complications. Patient however has been optimized for surgical intervention. Risk involved in the procedure to be discussed by orthopedic surgery #Hx of afib -On Eliquis -Will hold given the above - Does not appear patient is on rate control # History of PAD -With previous right BKA - Holding Eliquis and aspirin as above - Resume as soon as patient is cleared to do so by surgery service #Type 2 diabetes mellitus -Glucose checks and sliding scale insulin - Will hold long-acting insulin for now pending surgical plan and p.o. intake can resume #ESRD on HD -Dialysis Tuesday, , Tuesday -Consult nephrology -Renal diet -Daily weights, I's and O's #PPM - Patient recently with heart block and had to be transferred for Micra pacemaker implant -Noted #Chronic heart failure with preserved ejection fraction -Daily weights -I's and O's -Fluid restriction -Continue patients home medications #DVT ppx: SCD to left lower extremity while patient's Eliquis held Jayla Osuna MD Charges/Coding Visit Charges Inpatient E&M: 54910 Init Hosp L2
--- NOTE | 2025-01-25 18:05 | RAD_ITS ---
PROCEDURE: KNEE 1 OR 2 VIEWS 01/25/2025 REASON FOR EXAM: SURGICAL PLANNING TECHNIQUE: Procedure Code: RADK Modality: DX Procedure: KNEE 1 OR 2 VIEWS Laterality: Right COMPARISON: None FINDINGS: The patient is status post below-knee amputation. There is severe narrowing of the patellofemoral, medial, and lateral compartments. There is no acute fracture noted in there is a small joint effusion. Atherosclerotic vascular calcifications are present. RAD/Knee 1 or 2 Views IMPRESSION: Surgical changes as above. No acute abnormality. Multilevel degenerative disc disease. Reading [facility]
--- NOTE | 2025-01-25 18:05 | CONS.ORTHO ---
HPI Consult Data Date of Consult: 01/25/25 HPI Narrative HPI Narrative: PERLA LUBIN, is a 89 M who presents with a right hip fracture. Fell out of a chair in care home. does not ambulate for months now. uses a radha lift. his son and daughter are here at the bed side. on dialysis. has right below knee amp. 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 Wound, open, foot End stage renal disease MRSA (methicillin resistant staph aureus) culture positive Cutaneous abscess of right foot Diabetic infection of right foot Acute hyperkalemia Open wound Lives in care home Dietary restriction History of stress test History of echocardiogram Cardiology follow-up encounter History of atrial fibrillation Insulin dependent diabetes mellitus Other specified peripheral vascular diseases Type 2 diabetes mellitus with diabetic polyneuropathy Atherosclerosis of [place] artery of extremity with ulceration ESRD (end stage renal disease) Type 2 diabetes mellitus with foot ulcer Diabetes mellitus with diabetic 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 Pre-op testing Loose, teeth Wears glasses Cancer Dialysis patient Kidney disease Non-smoker Edema Syncope Chronic diastolic (congestive) heart failure (04/18/20) Paroxysmal atrial fibrillation Sinus bradycardia Type 2 diabetes mellitus Hyperkalemia Swelling of both lower extremities HLD (hyperlipidemia) Left bundle-branch block 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 Abnormal electrocardiogram Home Medications ?Medication ?Instructions ?Recorded ?Last Taken ?Type aspirin 81 mg tablet,delayed 81 mg PO DAILY heart health 07/01/20 08/28/24 History release (Adult Aspirin Regimen) torsemide 100 mg tablet 100 mg PO MOWEFR water pill 04/14/24 08/27/24 History sennosides 8.6 mg-docusate sodium 1 tab-cap PO BID PRN PRN 06/04/24 06/05/24 History 50 mg tablet (Stimulant Laxative Constipation Plus) cholecalciferol (vitamin D3) 125 125 mcg PO DAILY SUPPLEMENT 07/13/24 08/28/24 History mcg (5,000 unit) capsule benzocaine 15 mg-menthol 3.6 mg 2 mariaa mucous membrane Q2H PRN PRN 07/20/24 Unknown Rx lozenges (Sore Throat (benzocaine sore throat #0 ea with menthol)) apixaban 2.5 mg tablet (Eliquis) 2.5 mg PO BID #180 tabs 10/30/24 Unknown Rx acetaminophen 500 mg capsule 1,000 mg PO Q8H PRN PRN fever or 11/22/24 Unknown History pain calcium acetate(phosphat bind) 667 667 mg PO TID 01/25/25 Unknown History mg capsule dulaglutide 0.75 mg/0.5 mL 1.5 mg subcut .Qtuesday 01/25/25 Unknown History subcutaneous pen injector (Trulicity) insulin glargine 100 unit/mL (3 14 unit subcut DAILY diabetes 01/25/25 Unknown History mL) subcutaneous pen vitamin B complex-vitamin C-folic 1 tab PO DAILY 01/25/25 Unknown History acid 400 mcg tablet Allergy/AdvReac Type Severity Reaction Status Date / Time pioglitazone (From Actos) Allergy fatigue Verified 11/22/24 08:49 simvastatin (From Zocor) Allergy myalgia Verified 11/22/24 08:49 sitagliptin (From Januvia) Allergy unknown Verified 11/22/24 08:49 Family History Mother Hypertension Father Diabetes COPD (chronic obstructive pulmonary disease) Surgical History Hx of amputation History of incision and drainage Hx of foot surgery History of cataract extraction History of ligation of vein History of arteriovenostomy for renal dialysis History of inguinal hernia repair History of appendectomy Social History housing: care home current occupational status: retired Smoking Status: Never smoker alcohol intake: never substance use type: does not use caffeine: Yes Type: coffee Number of servings: 1 what type of physical activity do you participate in: none seatbelt use: always do you feel safe at home: Yes Vital Signs Vital Signs Vital Signs: 01/25/25 15:27 01/25/25 17:00 Temperature 97.5 F L Temperature Source Oral Pulse Rate 63 90 Respiratory Rate 16 16 Blood Pressure 131/60 H 125/73 H Blood Pressure Mean 83 90 Pulse Ox 92 90 Oxygen Delivery Method Room Air Nasal Cannula Weight Weight: 218 lb 7.649 oz Body Mass Index (BMI) 31.3 Physical Exam Const alert Constitutional Narrative: in pain General Appearance: cooperative Extremity Extremity Narrative: closed, ER of the right rajiv SPENCE well healed stump, good size proximal tibia segment. warm. Lab / Micro Data 01/25/25 16:35 01/25/25 15:28 Labs: Laboratory Results - last 24 hr 01/25/25 15:28: Sodium 136, Potassium 4.4, Chloride 97 L, Carbon Dioxide 27.0, Anion Gap 13, BUN 47 H, Creatinine 5.11 H, Estim Creat Clear Calc 12.02 L, Est GFR (MDRD) Non-Af 10 L, BUN/Creatinine Ratio 9.3 L, Glucose 213 H, Calcium 8.9 01/25/25 16:35: WBC 6.8, RBC 3.16 L, Hgb 9.9 L, Hct 29.9 L, MCV 94.6 H, MCH 31.3, MCHC 33.1, RDW Std Deviation 54.0 H, RDW Coeff of Frances 15.5 H, Plt Count 164, MPV 10.6, Immature Gran % (Auto) 0.400, Neut % (Auto) 68.9, Lymph % (Auto) 18.0 L, [place] % (Auto) 9.6, Eos % (Auto) 2.4, Baso % (Auto) 0.7, Absolute Neuts (auto) 4.7, Absolute Lymphs (auto) 1.22, Nucleated RBC % 0 Imaging Radiology Impression Hip/Pelvis X-Ray 01/25/25 15:39 IMPRESSION: Comminuted impacted right intertrochanteric fracture. Reading Location: [facility] Chest X-Ray 01/25/25 15:57 IMPRESSION: Low lung volumes. Congestion. Reading Location: [facility] 2 part IT hip fracture. 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 I will go ahead and get x-rays of the rest of the lower extremity on that side for surgical planning. Discussed the pros and cons risks and benefits of nonoperative treatment versus surgery with the patient and their son and daughter. Generally this is preferred for surgery even though the patient does not ambulate for pain control and palliation. I recommended for intramedullary nailing open reduction internal fixation with a long nail given the poor bone quality. The lack of a foot makes things a little bit challenging we will have to put a distal femoral traction pin or a traction pin in the proximal tibia to achieve longitudinal traction and internal rotation to try to line up the segment as best as possible. Risks of surgery as well as nonsurgery discussed typically risks of nonsurgery or higher therefore surgery is recommended. Risks of doing nothing pain VTE pneumonia and other problems. That being said surgery has risks as well infection pain stiffness bleeding damage to other structures delayed or nonunion or malunion. They understood wished to go ahead with surgery the daughter signed the consent form marked the right lower extremity and will get the patient admitted under Dr. Osuna the hospitalist and cleared for surgery as well as the patient is on blood thinners we will have to hold those and possibly give the patient factor replenishment prior to the surgery. For now MEGAN, NPO at [facility] in hopes of doing the procedure tomorrow. 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 Pros and cons risks and benefits were discussed with the patient including but not limited to infection, pain, stiffness, bleeding, damage to surrounding structures, neurovascular injury, recurrence or retear, failure or wear of hardware or fixation, instability, fracture, deep vein thrombosis and pulmonary embolism, anesthetic risks, , patient dissatisfaction, need for further surgery and other risks. Patient understood and wished to proceed with surgery, and signed the informed consent documentation.
[2025-01-25 18:57] VITALS: BP 136/56; PULSE 60; RESP 24; TEMP 36.4; O2SAT 100; BMI 31.3
--- OUTSIDE RECORDS SUMMARY | 2025-01-25 20:54 | XMS RPT_ITS | CCD ---
Author Organization [facility] Providers Care Salsa Dance Instructor Name Role Phone Patricia HALL, Alanna Jacobson Unavailable Unavailable Carmen Hurt Unavailable Unavailable ISABEL Kraus, Bernarda Raymundo Unavailable Unavailabl desiree Gomez RN, Alanna A Unavailable Unavailable Hurt, Carmen Unavailable Unavailable Jenna, Justyn Y Unavailable Unavailable Carmen Hurt Unavailable Unavailable Husam Yan MD Primary Care Provider Dr. Jean Yan Primary Care Provider Dr. Jean Yan Referring Provider EMILY Foley Attending Provider CeDr. Randal angulo Attending Provider [phone] Dr. Randal Macias Referring Provider CeDr. Randal angulo Other Provider Husam Yan MD Primary Care Provider Husam Yan MD Primary Care Provider Husam Yan MD Primary Care Provider JOVAN ARREAGA MD, JEAN PIERRE Attending Unavailkavon SWANSON MD, JERMAINE Consulting Unavailable ANITA AVILA, GARY Consulting Unavailable Husam Yan MD Primary Care Provider Podlogar KITCHEN HAND.NURSING STAFFING COORDINATOR, Lauren Unavailable Dr. Jean Yan MD Primary Care Provider Rosalie AVILA, Nando Attending Provider Unavailkavon Ruelas DPM, Dr. Nunes Attending Provider Dr. Des Ruelas DPM Referring Provider Rosalie AVILA, Dr. Collier Primary Care Provider Paola PRODUCT LEAD-C, Meredith Attending Provider Rosalie AVILA, Nando Referring Provider Unavaila mariya LLANOSM, Dr. Kelley Referring Provider Payal AVILA, Dr. Pena Referring Provider [phone] Salma Dugan Attending Provider Jerome AVILA, Dr. Byers Emergency Provider Arlin DIEZ, Dr. Conley Admit Provider Arlin DIEZ, Dr. Conley Attending Provider Artie AVILA, Dr. aJckson Other Provider Arlin DIEZ, Dr. Conley Other [...] Navin AVILA, Dr. Romano Attending Provider Enrrique AVIAL, Dr. Dickerson Attending Provider Kenneth AVILA, Dr. [...] AVILA, Dr. Elliott Admit Provider [phone] Christopher AVILA, Dr. Elliott Referring Provider Christopher AVILA, Dr. Elliott Other Provider Salma Dugan Referring Provider Rosalie AVILA, Dr. Collier Referring Provider Rosalie AVILA, Dr. Collier Primary Care Provider Nando Wiggnis MD Attending Provider eMredith Serna Attending Provider Dr. Warren Mendoza DPM Referring Provider Nando Wiggins MD Referring Provider UnavailDr. Nando Bui MD Primary Care Provider Salma Dugan Attending Provider Dr. Nando Wiggins MD Primary Care Provider Meredith Maradiaga Attending Provider Artie AVILA, Dr. Jackson Other Provider Nando Wiggins MD Attending Provider Ag Mendoza DPM, Dr. Kelley Referring Provider Dr. Randal Damico MD Attending Provider Dr. Jean Yan MD Referring Provider [phone] Alden PRODUCT LEAD-CPooja Attending Provider Bebe DIEZ, Dr. Santana Referring Provider Dr. Max Roberts DO Emergency Provider Rosalie AVILA, Dr. Collier Primary Care Provider Rosalie AVILA, Nando Attending Provider Ag Mendoza DPM, Dr. Kelely Referring Provider Dr. Randal Damico MD Attending Provider Mookie AVILA, Dr. Tee Other Provider Paola TOLEDO-CMeredith Attending Provider Christopher AVILA, Dr. Elliott Attending Provider Artie AVILA, Dr. Jackson Other Provider Bebe DIEZ, Dr. Santana Attending Provider Dr. Earl Genao DO Emergency Provider Rosalie AVILA, Dr. Collier Primary Care Provider Rosalie AVILA, Nando Attending Provider Unavailkavon Damico MD, Dr. Tee Attending Provider Mookie AVILA, Dr. Tee Referring Provider Dr. Randal Damico MD Other Provider Reji NIETO, Dr. Kelley Referring Provider Paola TOLEDO-CMeredith Attending Provider Dr. Earl Genao DO Attending Provider Kassidy KITCHEN HAND.NURSING STAFFING COORDINATOR, Yesenia Unavailable Rosalie AVILA, Dr. Collier Primary Care Provider Dr. Randal Damico MD Attending Provider Dr. Randal Damico MD Other Provider Nando Wiggins MD Attending Provider Nando Ayala MD Referring Provider Ag Mendoza DPM, Dr. Kelley Referring Provider Rosalie AVILA, Dr. Collier Attending Provider [phone] Grecia Duran Attending Provider Unavailable BURSLEY, CHRISTOPHER B Primary Care Unavailab le PODLOGAR, LAUREN Attending Unavailable TESTDANILO AMES Referring Unavailable BURSLEY, CHRISTOPHER B Primary Care Unavailab le PODLOGAR, LAUREN Attending Unavailable BURSLEY, CHRISTOPHER B Primary Care Unavailab le PODLOGAR, LAUREN Referring Unavailable BURSLEY, CHRISTOPHER B Primary Care Unavailab le BURSLEY, CHRISTOPHER B Primary Care Unavailab le SCHWIGEREARL Referring Unavailable HERBERT, ANGEL Attending Unavailable HERBERT, ANGEL Admitting Unavailable Rosalie AVILA, Dr. Collier Primary Care Provider Christopher AVILA, Dr. Elliott Admit Provider [phone] Christopher AVILA, Dr. Elliott Attending Provider [phone] Christopher AVILA, Dr. Elliott Referring Provider [phone] Dr. Randal Damico MD Other Provider Dr. Earl White MD Other Provider [phone] Salma Dugan Attending Provider [phone] Randal Damico MD Attending Provider Arleen AVILA, Dr. Larry Attending Provider Dr. Nando Wiggins MD Primary Care Provider Dr. Randal Damico MD Other Provider Salma Dugan Attending Provider [phone] Nando Wigigns MD Primary Care Provider Nando Wiggins MD Attending Provider UnavailNando Bui MD Referring Provider Unavailkavon Guevara NP-CMeredith Attending Provider Earl White Referring Unavailable Earl White Admitting Unavailable Randal Damico Consulting Unavailable Salma Cervantes Attending Unavailable Nando Wiggins Primary Care Unavailable Artie, Jayaprakas Consulting Unavailable Christopher, Earl Consulting Unavailable Oleghe OLS, Efewongbe Attending Unavailabl e Oleghe, Efewongbe Primary Care Unavailable Oleghe, Efewongbe Primary Care Unavailable Oleghe OLS, Efewongbe Attending Unavailabl e Christopher, Earl Attending Unavailable Jayla Osuna Referring Unavailable Oleghe, Efewongbe Primary Care Unavailable Jaswant Montgomery Consulting Unavailable Jaswant Montgomery F Admitting Unavailable Deni Shields Attending Unavailable Vipinley, Jean Primary Care Unavailable Randal Shore Consulting Unavailable Tanphaichikenny, Natthavat Consulting Unavaila Des Mcintyre Consulting Unavailable Fenton, Earl Consulting Unavailable Oleghe, Efewongbe Primary Care Unavailable Paola PRODUCT LEAD, Meredith Attending Unavailable Oleghe, Efewongbe Primary Care Unavailable Paola PRODUCT LEAD, Meredith Attending Unavailable Salma Cervantes Attending Unavailable Oleghe, Efewongbe Primary Care Unavailable Oleghe, Efewongbe Referring Unavailable Salma Cervantes Attending Unavailable Oleghe, Efewongbe Primary Care Unavailable Oleghe, Efewongbe Referring Unavailable Fenton, Earl Referring Unavailable Fenton, Earl Admitting Unavailable Sulaiman Whiteic Attending Unavailable Oleghe, Efewongbe Primary Care Unavailable Randal Damico Consulting Unavailable Manuel Alva Consulting Unavailable aWrren Mendoza Referring Unavailable Des Ruelas Attending Unavailable Bursley, Jean Primary Care Unavailable Warren Mendoza Referring Unavailable Randal Damico Attending Unavailable Oleghe, Efewongbe Primary Care Unavailable Warren Mendoza Attending Unavailable Warren Mendoza Referring Unavailable Bursley, Jean Primary Care Unavailable Christopher, Earl Referring Unavailable Christopher, Earl Attending Unavailable Bursley, Jean Primary Care Unavailable Oleghe OLS, Efewongbe Referring Unavailabl e Oleghe OLS, Efewongbe Attending Unavailabl e Oleghe, Efewongbe Primary Care Unavailable Randal Damico Attending Unavailable Oleghe, Efewongbe Primary Care Unavailable Warren Mendoza Referring Unavailable Oleghe, Efewongbe Primary Care Unavailable Paola PRODUCT LEAD, Meredith Attending Unavailable Jaswant Montgomery Consulting Unavailable Jaswant Montgomery Admitting Unavailable Deni Shields Referring Unavailable Salma Cervantes Attending Unavailable Bursley, Jean Primary Care Unavailable Randal Shore Consulting Unavailable Tanphaichitr, Natthavat Consulting Unavaila Des Mcintyre Consulting Unavailable Earl White Unavailable Deni Shields Consulting Unavailable Jaswant Montgomery Attending Unavailable Des Ruelas Attending Unavailable Des Ruelas Referring Unavailable Bursley, Jean Primary Care Unavailable Jayla Osuna Attending Unavailable Josef Garcia Consulting Unavailable Oleghe, Efewongbe Primary Care Unavailable Chung Humphreys Referring Unavailable Jayla Osuna Admitting Unavailable Manuel Alva Consulting Unavailable Jayla Osuna Consulting Unavailable Randal Shore Consulting Unavailable Juan Antonio Holden Consulting Unavailable Margarette Godinez Attending Unavailable Margarette Godinez Consulting Unavailable Salma Cervantes Attending Unavailable Oleghe, Efewongbe Primary Care Unavailable Vipinley, Jean Referring Unavailable Oleghe, Efewongbe Primary Care Unavailable Paola PRODUCT LEAD, Meredith Attending Unavailable Oleghe, Efewongbe Primary Care Unavailable Meredith Guevara NP Attending Unavailable Oleghe, Efewongbe Attending Unavailable Oleghe, Efewongbe Primary Care Unavailable Oleghe, Efewongbe Primary Care Unavailable Paola PRODUCT LEADMeredith Attending Unavailable Oleghe, Efewongbe Attending Unavailable Bursley, Jean Primary Care Unavailable Meredith Guevara NP Attending Unavailable Bursley, Jean Primary Care Unavailable Randal Damico Attending Unavailable Randal Damico Referring Unavailable Oleghe, Efewongbe Primary Care Unavailable Randal Damico Consulting Unavailable Warren Mendoza Referring Unavailable Randal Damico Attending Unavailable Oleghe, Efewongbe Primary Care Unavailable Oleghe, Efewongbe Primary Care Unavailable Eric Franklin Attending Unavailable Oleghe, Efewongbe Primary Care Unavailable Alicia Loo Attending Unavailable Oleghe, Efewongbe Primary Care Unavailable Des Garcia Attending Unavailable Oleghe OLS Efewsrinathbe Attending Unavailabl e Oleghe, Efewongbe Primary Care Unavailable Oleghe OLS Efewongbe Attending Unavailabl e Oleghe, Efewongbe Primary Care Unavailable Oleghe OLS, Efewongbe Attending Unavailabl e Vipinley, Jean Primary Care Unavailable Oleghe OLS Efewongbe Attending Unavailabl e Vipinley, Jean Primary Care Unavailable Oleghe OLS, Efewongbe [...] Efewongbe Primary Care Unavailable Zenaida Cooper Attending Unavailhoward e Earl White Attending Unavailable Jayla Osuna Referring Unavailable Oleghe, Efewongbe Primary Care Unavailable Randal Damico Consulting Unavailable Randal Damico Attending Unavailable Sisdhaval Randal Referring Unavailable Oleghe, Efewongbe Primary Care Unavailable Earl White Consulting Unavailable Earl White Attending Unavailable Earl White Referring Unavailable Bursley, Jean Primary Care Unavailable Warren Mendoza Referring Unavailable SisRandal puentes Consulting Unavailable Randal Damico Attending Unavailable Oleghe, Efewongbe Primary Care Unavailable Warren Mendoza Referring Unavailable SisRandal puentes Consulting Unavailable Randal Damico Attending Unavailable Oleghe, Efewongbe Primary Care Unavailable Earl White Attending Unavailable Warren Mendoza Consulting Unavailable Jayla Osuna Admitting Unavailable Bursley, Jean Primary Care Unavailable Manuel Alva Consulting Unavailable Jayla Osuna Consulting Unavailable Randal Shore Consulting Unavailable Earl White Consulting Unavailable Fernando Oliveros Consulting Unavailable Siska Randal Consulting Unavailable Siska Randal Attending Unavailable Siska Randal Referring Unavailable Oleghe, Efewongbe Primary Care Unavailable Warren Mendoza Referring Unavailable SisRandal puentes Attending Unavailable Sisdhaval Randal Consulting Unavailable Oleghe, Efewongbe Primary Care Unavailable Warren Mendoza Consulting Unavailable Warren Mendoza Referring Unavailable Salma Cervantes Attending Unavailable Bursley, Jean Primary Care Unavailable Oleghe, Efewongbe Primary Care Unavailable Jayla Osuna Consulting Unavailable Jayla Osuna Attending Unavailable Chung Humphreys Referring Unavailable Jayla Osuna Admitting Unavailable Juan Antonio Holden Attending Unavailable Oleghe, Efewongbe Primary Care Unavailable Tickton PRODUCT LEAD, Meredith Attending Unavailable Oleghe, Efewongbe Primary Care Unavailable Tickton PRODUCT LEAD, Meredith Attending Unavailable Oleghe, Efewongbe Primary Care Unavailable Tickton PRODUCT LEAD, Meredith Attending Unavailable Deni Shields Attending Unavailable Jotaniaeri, Earl Attending Unavailable Jotaniaeri, Earl Consulting Unavailable Oleghe OLS, Efewongbe Attending Unavailabl e Oleghe, Efewongbe Primary Care Unavailable Oleghe OLS, Efewongbe Attending Unavailabl e Oleghe, Efewongbe Primary Care Unavailable Oleghe OLS, Efewongbe Attending Unavailabl e Oleghe, Efewongbe Primary Care Unavailable Oleghe OLS, Efewongbe Attending Unavailabl e Oleghe, Efewongbe Primary Care Unavailable Oleghe, Efewongbe Primary Care Unavailable Belhayden, Miri Consulting Unavailable Earl Genao Attending Unavailable Oleghe OLS, Efewongbe Attending Unavailabl [...] Unavailable Oleghe OLS, Efewongbe Attending Unavailabl e Vipinley, Jean Primary Care Unavailable Oleghe OLS, Efewongbe Attending Unavailhoward Yan, Jean Primary Care Unavailable Warren Mendoza Referring Unavailable Randal Damico Attending Unavailable Oleghe, Efewongbe Primary Care Unavailable Siska, Randal Attending Unavailable Earl White Attending Unavailable Warren Mendoza Referring Unavailable Siska, Randal Consulting Unavailable Siska, Randal Attending Unavailable Oleghe, Efewongbe Primary Care Unavailable Christopher, Earl Referring Unavailable Fenton, Earl Admitting Unavailable SisRandal puentes Attending Unavailable Siska, Randal Consulting Unavailable Oleghe, Efewongbe Primary Care Unavailable Fenton, Earl Consulting Unavailable Fernando Oliveros Attending Unavailable Salma Cervantes Attending Unavailable Fernando Oliveros Referring Unavailable Oleghe, Efewongbe Primary Care Unavailable Paola TOLEDO, Meredith Attending Unavailable Oleghe, Efewongbe Primary Care Unavailable Paola PRODUCT LEAD, Meredith Attending Unavailable Jayla Osuna Attending Unavailable Bursley, Jean Primary Care Unavailable Jayla Osuna Attending Unavailable Jayla Osuna Consulting Unavailable Oleghe, Efewongbe Primary Care Unavailable Margarette Godinez Attending Unavailable Chung Humphreys Referring Unavailable Jayla Osuna Admitting Unavailable Juan Antonio Holden Consulting Unavailable Randal Shore Consulting Unavailable Artie, Babakyaprakas Consulting Unavailable Josef Garcia Consulting Unavailable Oleghe, Efewongbe Primary Care Unavailable Fernando Oliveros Admitting Unavailable Fernando Oliveros Attending Unavailable Artie, Babakyaprakas Consulting Unavailable Warren Mendoza Consulting Unavailable Juan Antonio Holden Attending Unavailable Jayla Osuna Admitting Unavailable Vipinley, Jean Primary Care Unavailable Artie, Jayaprakas Consulting Unavailable Jayla Osuna Consulting Unavailable Randal Shore Consulting Unavailable Fenton, Earl Consulting Unavailable Fernando Oliveros Consulting Unavailable Abby, Earl Consulting Unavailable Oleghe, Efewongbe Primary Care Unavailable Fernando Oliveros Admitting Unavailable Fernando Olvieros Attending Unavailable Artie, Jayaprakas Consulting Unavailable Fernando Oliveros Consulting Unavailable Oleghe, Efewongbe Primary Care Unavailable Pooja Ruano NP Attending Unavailable Bursley, Jean Referring Unavailable Oleghe, Efewongbe Primary Care Unavailable Oleghe, Efewongbe Attending Unavailable Oleghe, Efewongbe Primary Care Unavailable Paola TOLEDO, Meredith Attending Unavailable Juan Antonio Holden Attending Unavailable Navin, Juan Antonio Consulting Unavailable Oleghe, Efewongbe Primary Care Unavailable Oleghe, Efewongbe Referring Unavailable Grecia Duran Attending Unavailable Oleghe, Efewongbe Primary Care Unavailable Laron Bacon Attending Unavailable Oleghe, Efewongbe Primary Care Unavailable Le, Max Referring Unavailable Le, Max Attending Unavailable Oleghe OLS, Efewongbe Referring Unavailabl e Oleghe OLS, Efewongbe Attending Unavailabl e Oleghe, Efewongbe Primary Care Unavailable Christopher, Earl Attending Unavailable Cervantes, Salma Referring Unavailable Fenton, Earl Attending Unavailable Jayla Osuna Referring Unavailable Bursley, Jean Primary Care Unavailable Christopher, Earl Attending Unavailable Cervantes, Salma Referring Unavailable Oleghe, Efewongbe Primary Care Unavailable Deni Shields Referring Unavailable Cervantes, Salma Attending Unavailable Bursley, Jean Primary Care Unavailable Cervantes, Salma Attending Unavailable Oleghe, Efewongbe Primary Care Unavailable Oleghe, Efewongbe Referring Unavailable Itz Mahan Referring Unavailable Warren Jackson Attending Unavailable Bursley, Jean Primary Care Unavailable Christopher, Earl Attending Unavailable Manuel Alva Consulting Unavailable Oleghe OLS, Efewongbe Attending Unavailabl e Bursley, Jean Primary Care Unavailable Cervantes, Salma Attending Unavailable Cervantes, Salma Referring Unavailable Oleghe, Efewongbe Primary Care Unavailable Oleghe OLS, Efewongbe Attending Unavailabl e Oleghe, Efewongbe Primary Care Unavailable Oleghe OLS, Efewongbe Attending Unavailabl e Oleghe, Efewongbe Primary Care Unavailable Oleghe Dr. Nando AVILA Primary Care Provider Nando Wiggins MD Attending Provider Unavaila Dr. Laron Gonzalez MD Referring Provider Beau Dunlap MD Emergency Provider Hakan Gunter MD Attending Provider Enrrique AVILA, Dr. Dickerson Admit Provider Dr. Jayla Osuna MD Attending Provider Allergies Allergy Classification Reported Allergen(s) Allergy Type [...] HCL] Drug Allergy 7 Other: See Comments [facility] Work Phone: (20 sources) Simvastatin; Translations: [SIMVASTATIN] Drug Allergy 7 myalgia [facility] Work Phone: (20 sources) SITagliptin; Translations: [SITAGLIPTIN] Drug Allergy 4 Other: See Comments [facility] (15 sources) pioglitazone Drug Allergy 2 fatigue [facility] (13 sources) semaglutide; Translations: [SEMAGLUTIDE] Drug Allergy 4 GI Upset [facility] (1 source) pioglitazone Drug Allergy 5 [facility] (1 source) Simvastatin Drug Allergy 5 [facility] (1 source) SITagliptin Drug Allergy 5 [facility] Medications Current Medications Medication Drug Class(es) Dates Sig (Normalized) Sig (Original) 0.25 MG, 0.5 MG Dose 3 ML semaglutide 0.68 MG/ML Pen Injector [Ozempic] (1 source) Start: 09-07-2023 Ozempic 2 mg/3 mL (0.25 mg or 0.5 mg dose) subcutaneous solution Dose : 0.5 mg =, Subcutaneous, Tuesday, rotate injection sites, 0 Refill(s) Start Date: 09/07/23 Status: Ordered acetaminophen 500 mg oral capsule (20 sources) Start: 11-22-2024 Start: 04-24-2024 End: 11-22-2024 aspirin 81 mg delayed release oral tablet (20 sources) Nonsteroidal Anti-inflammatory Drug Start: 07-01-2020 Start: 05-12-2017 End: 06-24-2020 Start: 10-26-2016 take 1 tablet by davin th once daily ASPIRIN EC 81 MG TBEC One tablet by mouth daily ASPIRIN [id number] Bernarda Kraus RN Start: 04-06-2013 take 1 [...] mg / menthol 3.6 mg oral lozenge (14 sources) Standardized Chemical Allergen Start: 07-20-2024 Blood-Glucose [...] 0 Refill(s) Start Date: 09/07/23 Status: Ordered calcium acetate 667 mg oral capsule (1 source) Start: 01-25-2025 cholecalciferol 0.125 mg oral capsule (20 sources) Vitamin D Start: 07-13-2024 Start: 05-02-2020 End: 07-13-2024 Start: 10-27-2016 take 1 tablet by davin th once daily EQL VITAMIN D3 CAPS One tablet by mouth daily CHOLECALCIFEROL CAPS [id number] Laron Bacon MD take 1 tablet by davin once daily cholecalciferol (VITAMIN D3) 5,000 unit [...] daily. docusate sodium 50 mg / sennosides, penitentiary 8.6 mg oral tablet (20 sources) Start: 04-24-2024 End: 06-04-2024 0.5 ml dulaglutide 1.5 mg/ml auto-injector (1 source) GLP-1 Receptor Agonist Start: 01-25-2025 flash glucose scanning reader (FREESTYLE TORIBIO 14 DAY READER) (18 sources) Start: 06-08-2023 flash glucose scanning reader (FREESTYLE TORIBIO 14 DAY READER) Indications: 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 edema, with long-term current use of insulin (HCC) 1 Units four times daily. 1 Each 06/08/2023 Active Start: 06-08-2023 flash glucose scanning reader (FREESTYLE TORIBIO 14 DAY READER) Indications: 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 edema, with long-term current use of insulin (HCC) 1 Units four times daily. 1 Each 0 06/08/2023 Active Comment on above: 1 Units four times d aily. flash glucose sensor (FREESTYLE TORIBIO 2 SENSOR) kit (15 sources) Start: 01-06-2024 flash glucose sensor (FREESTYLE TORIBIO 2 SENSOR) kit Indications: 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 edema, with long-term current use of insulin (HCC) 2 Each four times daily. 6 Kit 1 01/06/2024 Active Start: 08-08-2023 End: 01-06-2024 flash glucose sensor (FREEST YLE TORIBIO 2 SENSOR) kit 2 Each four times daily. 6 Kit 1 08/08/2023 01/06/2024 Discontinued Start: 08-08-2023 flash glucose sensor (FREESTYLE TORIBIO 2 SENSOR) kit 2 Each four times daily. 6 Kit 1 08/08/2023 Active Comment on above: 2 Each four times da pratima. FreeStyle Toribio 14 Day Sensor kit (1 source) Start: 09-07-2023 FreeStyle Toribio 14 Day Sensor kit FreeStyle Toribio 14 Day Sensor kit, CHANGE APPLIANCE EVERY [...] February 18, 2021 9:14am Start: 04-18-2020 End: 01-25-2025 Start: 04-18-2020 End: 04-24-2024 Start: 04-18-2020 End: [...] Status: Ordered torsemide 100 mg oral tablet (20 sources) Loop Diuretic Start: 03-28-2024 Vitamin D3 25 mcg (1000 intl units) oral capsule (1 source) Start: 09-07-2023 Vitamin D3 25 mcg (1000 intl units) oral capsule Dose : 25 mcg = 1 cap(s), Oral, Daily, 0 Refill(s) Start Date: 09/07/23 Status: Ordered (20 sources) Start: 01-25-2025 Start: 10-29-2024 End: 01-25-2025 Start: 10-29-2024 Start: 08-29-2024 End: 10-29-2024 Start: 08-29-2024 Start: 07-20-2024 End: 01-25-2025 Start: 07-20-2024 Start: 06-04-2024 End: 10-29-2024 Start: 06-04-2024 Start: 09-24-2022 End: 10-07-2023 Completed/Discontinued Medications Medication Drug Class(es) Dates Sig (Normalized) Sig (Original) acetaminophen 325 mg / oxyCODONE hydrochloride 2.5 mg oral tablet (20 sources) Opioid Agonist Start: 07-13-2024 End: 07-20-2024 Start: 06-08-2024 End: 07-10-2024 Start: 06-06-2024 End: 06-06-2024 Start: 06-06-2024 End: 06-08-2024 albuterol 0.83 mg/ml inhalation solution (14 sources) beta2-Adrenergic Agonist Start: 07-20-2024 End: 01-25-2025 amLODIPine 5 mg oral tablet (20 sources) Dihydropyridine Calcium Channel Prakash Start: 09-24-2022 End: 10-07-2023 Start: 05-12-2017 End: 05-02-2020 Start: 10-26-2016 take 1 tablet by davin th once daily AMLODIPINE BESYLATE 10 MG TABS One tablet by mouth daily AMLODIPINE BESYLATE [id number] Bernarda Kraus RN amoxicillin 250 mg / clavula chase 125 mg oral tablet (20 sources) Penicillin-class Antibacterial Start: 05-10-2024 End: 05-22-2024 Start: 04-24-2024 End: 05-04-2024 apixaban 2.5 mg oral tablet (20 sources) Factor Xa Inhibitor Start: 10-17-2024 End: 10-30-2024 Start: 06-24-2020 End: 07-05-2020 atenolol 50 mg oral tablet (12 sources) beta-Adrenergic Prakash Start: 10-26-2016 End: 10-27-2016 take 1 tablet by mouth once daily ATENOLOL 50 MG TABS One tablet by mouth daily ATENOLOL [id number] Bernarda Kraus RN B COMPLEX VITAMINS (2 sources) Start: 10-27-2016 take 1 tablet by mouth once daily B COMPLEX-B12 TABS One tablet by mouth daily B COMPLEX VITAMINS [id number] Laron Bacon MD B COMPLEX VITAMINS (3 sources) Start: 10-27-2016 take 1 tablet by mouth once daily B COMPLEX-B12 TABS One tablet by mouth daily B COMPLEX VITAMINS [id number] Laron Bacon MD cephalexin 500 mg oral capsule (15 sources) Cephalosporin Antibacterial Start: 10-13-2020 End: 10-18-2020 cinnamon bark 500 mg oral capsule (7 sources) Start: 10-26-2016 take 1 tablet by mouth once daily CINNAMON 500 MG CAPS One tablet by mouth daily CINNAMON [id number] Bernarda Kraus RN clopidogrel 75 mg oral tablet (20 sources) [id number] Platelet Inhibitor Start: 07-02-2024 End: 10-17-2024 Start: 04-24-2024 End: 06-04-2024 doxycycline hyclate 100 mg o ral capsule (20 sources) Tetracycline-class Drug Start: 05-10-2024 End: 05-22-2024 Start: 04-24-2024 End: 05-04-2024 flash glucose sensor (FREESTYLE TORIBIO 14 DAY SENSOR) kit (6 sources) Start: 07-28-2023 End: 08-08-2023 flash glucose sensor (FREEST YLE TORIBIO 14 DAY SENSOR) kit Indications: 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 edema, with long-term current use of insulin (HCC) 2 Each four times daily. 2 Kit 4 07/28/2023 08/08/2023 Discontinued Start: 07-28-2023 flash glucose sensor (FREESTYLE TORIBIO 14 DAY SENSOR) kit Indications: 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 edema, with long-term current use of insulin (HCC) 2 Each four times daily. 2 Kit 4 07/28/2023 Active Start: 06-08-2023 End: 07-28-2023 flash glucose sensor (FREEST YLE TORIBIO 14 DAY SENSOR) kit Indications: 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 edema, with long-term current use of insulin (HCC) 2 Each four times daily. 2 Kit 4 06/08/2023 07/28/2023 Discontinued Start: 06-08-2023 flash glucose sensor (FREESTYLE TORIBIO 14 DAY SENSOR) kit Indications: 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 edema, with long-term current use of insulin (HCC) 2 Each four times daily. 2 Kit 4 06/08/2023 Active Comment on above: 2 Each four times da pratima. folic acid 0.4 mg / vitamin b12 0.5 mg oral tablet (15 sources) Vitamin B12 Start: 10-21-2021 End: 11-18-2021 Start: 10-21-2021 take 1 tablet by davin th once daily Vitamin [id number]-[id number] Acid Active 1 TABLET PO DAILY October [...] TABS One tablet by mouth daily GLIPIZIDE [id number] Bernarda Kraus RN Comment on above: Take 1 tablet by davin th twice daily before meals. heparin sodium, porcine 5000 unt/ml injectable solution (14 sources) Unfractionated Heparin, Anti-coagulant Start: 07-20-2024 End: 10-17-2024 hydroCHLOROthiazide 25 mg or al tablet (20 sources) Thiazide Diuretic Start: 05-12-2017 End: 12-03-2018 Start: 10-27-2016 take 1 tablet by davin th once daily HYDROCHLOROTHIAZIDE 25 MG TABS One tablet by mouth daily HYDROCHLOROTHIAZIDE [id number] Laron Bacon MD sodium hypochlorite 2.5 mg/ml topical solution (20 sources) Start: 07-20-2024 End: 09-02-2024 3 ml insulin lispro 100 unt/ml pen injector (20 sources) Insulin Analog Start: 04-24-2024 End: 01-25-2025 krill oil (5 sources) Start: 10-27-2016 take 1 tablet by mouth once daily HM MEGAKRILL CAPS One tablet by mouth daily KRILL OIL CAPS [id number] Laron Bacon MD 3 ml liraglutide 6 mg/ml pen injector (20 sources) GLP-1 Receptor Agonist Start: 05-12-2017 End: 05-04-2018 Start: 05-12-2017 End: 05-04-2018 Liraglutide Discontinued SC 6 60 May 12, 2017 1:00am May 04, 2018 10:45am Start: 10-26-2016 VICVITO jacobson s directed LIRAGLUTIDE SOLN [id number] Bernarda Kraus RN lisinopril 40 mg oral tablet (20 sources) Angiotensin Converting Enzyme Inhibitor Start: 05-12-2017 End: 05-02-2020 Start: 10-26-2016 take 1 tablet by davin th once daily ZESTRIL 40 MG TABS One tablet by mouth daily LISINOPRIL [id number] Bernarda Kraus RN methylsulfonylmethane (5 sources) Start: 10-27-2016 take 1 tablet by mouth once daily [facility] MSM CAPS One tablet by mouth daily METHYLSULFONYLMETHANE CAPS [id number] Laron Bacon MD metoprolol tartrate 25 mg oral tablet (15 sources) beta-Adrenergi c Prakash Start: 04-18-2020 End: 05-02-2020 miconazole nitrate 20 mg/ml topical cream (14 sources) Azole Antifungal Start: 04-24-2024 End: 05-10-2024 nystatin [id number] unt/ml topical cream (14 sources) Polyene Antifungal Start: 05-22-2024 End: 08-28-2024 [...] time a week. vancomycin 750 mg injection (20 sources) Glycopeptide Antibacterial Start: 07-19-2024 End: 09-02-2024 vitamin b12 1 mg oral tablet (20 sources) Vitamin B12 Start: 11-18-2021 End: 06-04-2024 Problems Active Problems Problem Classification Problem Date Documented Date Episodic/Chronic Acute and unspecified renal failure (15 sources) [id number] renal failure; Translations: [Acute kidney failure, unspecified] 06-23-2020 Episodic Bacterial infection; unspecified site (20 sources) Bacteremia due to Methicillin resistant Staphylococcus aureus; Translations: [Bacteremia] Onset: 5 07-16-2024 Episodic Cardiac dysrhythmias (20 sources) Paroxysmal atrial fibrillation; Translations: [Paroxysmal atrial fibrillation] Onset: 5 07-15-2024 Chronic Cardiac dysrhythmias (20 sources) Sinus bradycardia; Translations: [Bradycardia, unspecified] Onset: Episodic Chronic kidney disease (20 sources) Chronic kidney disease stage 3; Translations: [Chronic kidney disease (CKD), stage III (moderate)] Onset: 06-06-201 7 Resolved: 3 10-26-2016 Chronic Chronic ulcer of skin (20 sources) Non-pressure chronic ulcer of other part of right foot with necrosis of bone; Translations: [Non-pressure chronic ulcer of other part of right foot with necrosis of bone] Onset: 4 05-18-2024 Chronic Complication of device; implant or graft (17 sources) Dialysis finding; Translations: [Other specified complication of vascular prosthetic devices, implants and grafts, initial encounter] Chronic Complication of device; implant or graft (15 sources) Malfunction of peritoneal dialysis catheter; Translations: [Breakdown (mechanical) of intraperitoneal dialysis catheter, initial encounter] 08-28-2020 Episodic Conditions associated with dizziness or vertigo (15 sources) Dizziness; Translations: [Dizziness and giddiness] Onset: 5 07-15-2024 Episodic Conduction disorders (20 sources) Mobitz type I incomplete atrioventricular block; Translations: [Left bundle branch block] Onset: 7 10-26-2016 Chronic Congestive heart failure; nonhypertensive (20 sources) Chronic diastolic heart failure; Translations: [Chronic diastolic (congestive) heart failure] Onset: 0 03-04-2021 Chronic Deficiency and other anemia (20 sources) Anemia of chronic disease; Translations: [Anemia [...] Onset: 6 10-26-2016 Chronic E Codes: Fall (12 sources) Fall; Translations: [Unspecified fall, initial encounter] 11-08-2024 Episodic Essential hypertension (20 sources) Hypertensive disorder; Translations: [Essential hypertension] Onset: 5 10-26-2016 Chronic Fluid and electrolyte disorders (20 sources) Hyperkalemia; Translations: [Hyperkalemia] Onset: 5 07-11-2024 Episodic Fracture of neck of femur (hip) (4 sources) Closed fracture of hip; Translations: [Fracture of unspecified part of neck of unspecified femur, initial encounter for closed fracture] 01-25-2025 Episodic Gangrene (20 sources) Atherosclerosis of [place] arteries of extremities with gangrene, right leg; Translations: [Atherosclerosis of [place] artery of right leg with gangrene] Onset: [...] Open wounds of head; neck; and trunk (10 sources) Laceration of nose; Translations: [Laceration without foreign body of nose, initial encounter] 11-08-2024 Episodic Other acquired deformities (1 source) Deformity of foot; Translations: [Unspecified acquired deformity of right lower leg] 03-04-2021 Episodic Other aftercare (14 sources) Surgical follow-up; Translations: [Encounter for surgical aftercare following surgery on the circulatory system] 06-20-2024 Episodic Other aftercare (2 sources) Encounter for orthopedic aftercare following surgical amputation; Translations: [Encounter for orthopedic aftercare following surgical amputation] Onset: Episodic Other aftercare (2 sources) Long-term current use of anticoagulant; Translations: [correction (current) use of anticoagulants] 01-25-2025 Episodic Other bone disease and musculoskeletal deformities (17 sources) History of amputation of right foot; [...] great toe] Onset: Chronic Other circulatory disease (20 sources) Arteriovenous fistula; Translations: [Arteriovenous fistula, acquired] 10-17-2024 Chronic Other circulatory disease (2 sources) Other specified peripheral vascular diseases; Translations: [Other specified peripheral vascular diseases] Onset: 5 Chronic Other circulatory disease (20 sources) Electrocardiogram abnormal; Translations: [Abnormal electrocardiogram [ECG] [EKG]] Onset: 10-26-2016 Episodic Other circulatory disease (14 sources) Ischemic toe; Translations: [Other disorder of circulatory system] 05-18-2024 Episodic Other circulatory disease (2 sources) Other disorder of circulatory system; Translations: [Other disorder of circulatory system] Onset: 5 Episodic Other connective tissue disease (15 sources) Swelling of bilateral lower limbs; Translations: [Other specified soft tissue disorders] 04-14-2024 Episodic Other connective tissue disease (1 source) Pain in left foot; Translations: [Pain in left foot] 06-27-2023 Episodic Other connective tissue disease (1 source) Pain in right foot; Translations: [Pain in right foot] 06-27-2023 Episodic Other connective tissue disease (19 sources) Foot pain; Translations: [Pain in right [...] injuries and conditions due to external causes (10 sources) Closed injury of head; Translations: [Unspecified injury of head, initial encounter] 11-08-2024 Episodic Other injuries and conditions due to external causes (1 source) Encounter for examination and observation following other accident; Translations: [Encounter for examination and observation following other accident] Onset: 5 Episodic Other lower respiratory disease (15 sources) Dyspnea; Translations: [Dyspnea, unspecified] 06-23-2020 Episodic Other nervous system disorders (16 sources) Acute postoperative pain; Translations: [Other acute [...] Resolved: 0 07-25-2017 Episodic Residual codes; unclassified (15 sources) H/O: major vascular surgery; Translations: [Other specified postprocedural states] 12-26-2020 Episodic Residual codes; unclassified (2 sources) Altered mental status, unspecified; Translations: [Altered mental status, unspecified] Onset: 5 Episodic Skin and subcutaneous tissue infections (20 sources) Infection of foot; Translations: [Local infection of the skin and subcutaneous tissue, unspecified] Onset: 04-14-2024 Episodic Unclassified (4 sources) Long-term drug therapy; Translations: [Other long term care social worker (current) drug therapy] Onset: 10-26-2016 Past or Other Problems Problem Classification Problem Date Documented Date Episodic/Chronic Genitourinary symptoms and ill-defined conditions (20 sources) Nocturia; Translations: [Nocturia] Onset: 06-21-2005 06-21-2005 Episodic Malaise and fatigue (1 source) Weakness; Translations: [Weakness] Onset: 07-17-2024 Episodic Melanomas of skin (14 sources) Lentigo maligna; 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, unspecified] Onset: 09-26-2014 Resolved: 02-28-2020 02-28-2020 Chronic Mycoses (20 sources) Onychomycosis; Translations: [Tinea unguium] Onset: 09-22-2011 Resolved: 11-18-2016 09-22-2011 Episodic Other aftercare (3 sources) Other fci (current) drug therapy; Translations: [Other long term care social worker (current) drug therapy] Onset: 10-26-2016 10-26-2016 Episodic Other aftercare (1 source) correction (current) use of insulin; Translations: [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 edema, with long-term current use of insulin (HCC)] Onset: 02-28-2020 Episodic Other aftercare (1 source) Encounter for change or removal of nonsurgical wound dressing; Translations: [Encounter for change or removal of nonsurgical wound dressing] Onset: 08-09-2024 Episodic Other connective tissue disease (1 source) [...] Test Name Value Interpretation Reference Range Facility Absolute lymphocyte countOrd ered By: Beau Dunlap on 01-25-2025 Lymphocytes Auto (Unsp spec) [#/Vol] 1.22 10*3/uL 0.83-4.51 [facility] Anion gap in Serum or Plasma Ordered By: Beau Dunlap on 01-25-2025 Anion gap [Moles/Vol] 13 mmol/L 5-15 [facility] [place] Automated lymphocyte count a s percentage of total leukocytesOrdered By: Beau Dunlap on 01-25-2025 Lymphocytes/100 WBC Auto (Unsp spec) 18.0 % Low 19-41 [facility] BUN/creatinine ratioOrdered By: Beau Dunlap on 01-25-2025 Urea nitrogen/Creatinine [Mass ratio] 9.3 mg/mg Low 10-20 [facility] Basophil percentageOrdered B y: Beau Dunlap on 01-25-2025 Basophils/100 WBC (Bld) 0.7 % 0-1 [facility] Carbon dioxide, total [Moles /volume] in Central venous bloodOrdered By: Beau Dunlap on 01-25-2025 CO2 [Moles/Vol] 27.0 mmol/L 21.0-32.0 [facility] Chloride assayOrdered By: Hayden Dunlap on 01-25-2025 Chloride [Moles/Vol] 97 mmol/L Low 98-108 [facility] Eosinophil percentageOrdered By: Beau Dunlap on 01-25-2025 Eosinophils/100 WBC (Bld) 2.4 % 0-5 [facility] Erythrocyte distribution wid th ratioOrdered By: Beau Dunlap on 01-25-2025 Erythrocyte distribution width (RBC) [Ratio] 15.5 % High 11.6-14.6 [facility] Erythrocyte distribution wid th standard deviationOrdered By: Beau Dunlap on 01-25-2025 Erythrocyte distribution width (RBC) [Ratio] 54.0 fl High 35.1-43.9 [facility] Glomerular filtration rate ( GFR) estimation/1.73 sq m using serum, plasma, or whole bOrdered By: Beau Dunlap on 01-25-2025 GFR/1.73 sq M.predicted among non-blacks MDRD (S/P/Bld) [Vol rate/Area] 10 mL/min/{1.73_m2} Low >60 [facility] Hematocrit Auto (Bld) [Volum e fraction]Ordered By: Beau Dunlap on 01-25-2025 Hematocrit (Bld) [Volume fraction] 29.9 % Low 40-54 [facility] Hemoglobin measurementOrdere d By: Beau Dunlap on 01-25-2025 Hemoglobin (Bld) [Mass/Vol] 9.9 g/dL Low 13.0-16.5 [facility] Immature granulocytes/100 WB C Auto (Bld)Ordered By: Beau Dunlap on 01-25-2025 Immature granulocytes/100 WBC (Bld) 0.400 % 0.0-0.9 [facility] MCV (mean corpuscular volume ) determinationOrdered By: Beau Dunlap on 01-25-2025 MCV (RBC) [Entitic vol] 94.6 fL High 80-94 [facility] Mean corpuscular hemoglobin (MCH) determinationOrdered By: Beau Dunlap on 01-25-2025 MCH (RBC) [Entitic mass] 31.3 pg 27.0-32.0 [facility] Monocyte percentageOrdered B y: Beau Dunlap on 01-25-2025 Monocytes/100 WBC (Bld) 9.6 % 0-10 [facility] Neutrophil percentageOrdered By: Beau Dunlap on 01-25-2025 Neutrophils/100 WBC (Bld) 68.9 % 47-70 [facility] Platelet countOrdered By: Hayden Dunlap on 01-25-2025 Platelets (Bld) [#/Vol] 164 10*3/uL 150-450 [facility] Potassium measurement (mass/ volume)Ordered By: Beau Dunlap on 01-25-2025 Potassium (Unsp spec) [Mass/Vol] 4.4 mmol/L 3.3-5.1 [facility] RBC Auto (Bld) [#/Vol]Ordere d By: Beau Dunlap on 01-25-2025 RBC (Bld) [#/Vol] 3.16 10*6/uL Low 4.6-6.2 [facility] Serum creatinine measurement (mass/volume)Ordered By: Beau Dunlap on 01-25-2025 Creatinine [Mass/Vol] 5.11 mg/dL High 0.70-1.20 [facility] [place] Serum glucose measurement (m ass/volume)Ordered By: Beau Dunlap on 01-25-2025 Glucose [Mass/Vol] 213 mg/dL High 70-99 [facility] Serum or plasma calcium lilli urement (mass/volume)Ordered By: Beau Dunlap on 01-25-2025 Calcium [Mass/Vol] 8.9 mg/dL 7.6-11.0 [facility] Serum or plasma urea nitroge n measurement (mass/volume)Ordered By: Beau Dunlap on 01-25-2025 Urea nitrogen [Mass/Vol] 47 mg/dL High 4-19 [facility] Sodium levelOrdered By: Beau Dunlap on 01-25-2025 Sodium [Moles/Vol] 136 mmol/L 133-145 [facility] White blood cell (WBC) count Ordered By: Beau Dunlap on 01-25-2025 WBC (Bld) [#/Vol] 6.8 10*3/uL 4.4-11.0 [facility] Absolute lymphocyte countOrd ered By: aNndo Wiggins on 01-23-2025 Lymphocytes Auto (Unsp spec) [#/Vol] 1.42 10*3/uL 0.83-4.51 [facility] Anion gap in Serum or Plasma Ordered By: Nando Wiggins on 01-23-2025 Anion gap [Moles/Vol] 14 mmol/L 5-15 [facility] [place] Automated lymphocyte count a s percentage of total leukocytesOrdered By: Nando Wiggins on 01-23-2025 Lymphocytes/100 WBC Auto (Unsp spec) 19.1 % 19-41 [facility] BUN/creatinine ratioOrdered By: Nando Wiggins on 01-23-2025 Urea nitrogen/Creatinine [Mass ratio] 9.7 mg/mg Low 10-20 [facility] Basophil percentageOrdered B y: Nando Wiggins on 01-23-2025 Basophils/100 WBC (Bld) 0.8 % 0-1 [facility] Carbon dioxide, total [Moles /volume] in Central venous bloodOrdered By: Nando Wiggins on 01-23-2025 CO2 [Moles/Vol] 27.0 mmol/L 21.0-32.0 [facility] Chloride assayOrdered By: wolf Wiggins on 01-23-2025 Chloride [Moles/Vol] 92 mmol/L Low 98-108 [facility] Eosinophil percentageOrdered By: fili Wiggins on 01-23-2025 Eosinophils/100 WBC (Bld) 2.7 % 0-5 [facility] Erythrocyte distribution wid th ratioOrdered By: college parkwolf Wiggins on 01-23-2025 Erythrocyte distribution width (RBC) [Ratio] 15.7 % High 11.6-14.6 [facility] Erythrocyte distribution wid th standard deviationOrdered By: biancacollege parkwolf Wiggins on 01-23-2025 Erythrocyte distribution width (RBC) [Ratio] 54.7 fl High 35.1-43.9 [facility] Glomerular filtration rate ( GFR) estimation/1.73 sq m using serum, plasma, or whole bOrdered By: Nando Wiggins on 01-23-2025 GFR/1.73 sq M.predicted among non-blacks MDRD (S/P/Bld) [Vol rate/Area] 12 mL/min/{1.73_m2} Low >60 [facility] Hematocrit Auto (Bld) [Volum e fraction]Ordered By: fili Wiggins on 01-23-2025 Hematocrit (Bld) [Volume fraction] 31.3 % Low 40-54 [facility] Hemoglobin measurementOrdere d By: Nando Wiggins on 01-23-2025 Hemoglobin (Bld) [Mass/Vol] 10.0 g/dL Low 13.0-16.5 [facility] Immature granulocytes/100 WB C Auto (Bld)Ordered By: Nando Wiggins on 01-23-2025 Immature granulocytes/100 WBC (Bld) 0.500 % 0.0-0.9 [facility] MCV (mean corpuscular volume ) determinationOrdered By: Nando Wiggins 01-23-2025 MCV (RBC) [Entitic vol] 95.7 fL High 80-94 [facility] Mean corpuscular hemoglobin (MCH) determinationOrdered By: Nando Wiggins on 01-23-2025 MCH (RBC) [Entitic mass] 30.6 pg 27.0-32.0 [facility] Monocyte percentageOrdered B y: Nando Wiggins on 01-23-2025 Monocytes/100 WBC (Bld) 9.3 % 0-10 [facility] Neutrophil percentageOrdered By: Nando Wiggins on 01-23-2025 Neutrophils/100 WBC (Bld) 67.6 % 47-70 [facility] Platelet countOrdered By: Kathie Wiggins on 01-23-2025 Platelets (Bld) [#/Vol] 173 10*3/uL 150-450 [facility] Potassium measurement (mass/ volume)Ordered By: Nando Wiggins on 01-23-2025 Potassium (Unsp spec) [Mass/Vol] 4.1 mmol/L 3.3-5.1 [facility] RBC Auto (Bld) [#/Vol]Ordere d By: Nando Wiggins on 01-23-2025 RBC (Bld) [#/Vol] 3.27 10*6/uL Low 4.6-6.2 [facility] Serum creatinine measurement (mass/volume)Ordered By: Nando Wiggins on 01-23-2025 Creatinine [Mass/Vol] 4.39 mg/dL High 0.70-1.20 [facility] [place] Serum glucose measurement (m ass/volume)Ordered By: Nando Wiggins on 01-23-2025 Glucose [Mass/Vol] 201 mg/dL High 70-99 [facility] Serum or plasma calcium lilli urement (mass/volume)Ordered By: Nando Wiggins on 01-23-2025 Calcium [Mass/Vol] 8.7 mg/dL 7.6-11.0 [facility] Serum or plasma urea nitroge n measurement (mass/volume)Ordered By: Nando Wiggins on 01-23-2025 Urea nitrogen [Mass/Vol] 43 mg/dL High 4-19 [facility] Sodium levelOrdered By: Deb Wiggins on 01-23-2025 Sodium [Moles/Vol] 133 mmol/L 133-145 [facility] White blood cell (WBC) count Ordered By: Debsrinathwolf Edenlakshmidesiree on 01-23-2025 WBC (Bld) [#/Vol] 7.4 10*3/uL 4.4-11.0 [facility] Pacemaker Checkon 12-26-2024 Pacemaker Check Normal [facility] Absolute lymphocyte countOrd ered By: Nando Wiggins on 12-24-2024 Lymphocytes Auto (Unsp spec) [#/Vol] 1.65 10*3/uL 0.83-4.51 [facility] Anion gap in Serum or Plasma Ordered By: Nando Wiggins on 12-24-2024 Anion gap [Moles/Vol] 16 mmol/L High 5-15 [facility] [place] Automated lymphocyte count a s percentage of total leukocytesOrdered By: Nando Wiggins on 12-24-2024 Lymphocytes/100 WBC Auto (Unsp spec) 19.2 % 19-41 [facility] BUN/creatinine ratioOrdered By: Nando Edenlakshmidesiree on 12-24-2024 Urea nitrogen/Creatinine [Mass ratio] 9.7 mg/mg Low 10-20 [facility] Basophil percentageOrdered B y: Debsrinathwolf Edenlakshmidesiree on 12-24-2024 Basophils/100 WBC (Bld) 0.7 % 0-1 [facility] Carbon dioxide, total [Moles /volume] in Central venous bloodOrdered By: Nando Edenlakshmidesiree on 12-24-2024 CO2 [Moles/Vol] 25.2 mmol/L 21.0-32.0 [facility] Chloride assayOrdered By: Kathie biancalilian Wiggins on 12-24-2024 Chloride [Moles/Vol] 93 mmol/L Low 98-108 [facility] Eosinophil percentageOrdered By: Nando Edenlakshmidesiree on 12-24-2024 Eosinophils/100 WBC (Bld) 2.8 % 0-5 [facility] Erythrocyte distribution wid th ratioOrdered By: Nando Wiggins on 12-24-2024 Erythrocyte distribution width (RBC) [Ratio] 15.2 % High 11.6-14.6 [facility] Erythrocyte distribution wid th standard deviationOrdered By: Nando Wiggins on 12-24-2024 Erythrocyte distribution width (RBC) [Ratio] 50.7 fl High 35.1-43.9 [facility] Glomerular filtration rate ( GFR) estimation/1.73 sq m using serum, plasma, or whole bOrdered By: Nando Wiggins on 12-24-2024 GFR/1.73 sq M.predicted among non-blacks MDRD (S/P/Bld) [Vol rate/Area] 10 mL/min/{1.73_m2} Low >60 [facility] Hematocrit Auto (Bld) [Volum e fraction]Ordered By: Nando Wiggins on 12-24-2024 Hematocrit (Bld) [Volume fraction] 31.5 % Low 40-54 [facility] Hemoglobin measurementOrdere d By: Nando Wiggins on 12-24-2024 Hemoglobin (Bld) [Mass/Vol] 10.0 g/dL Low 13.0-16.5 [facility] Immature granulocytes/100 WB C Auto (Bld)Ordered By: Nando Wiggins on 12-24-2024 Immature granulocytes/100 WBC (Bld) 0.600 % 0.0-0.9 [facility] MCV (mean corpuscular volume ) determinationOrdered By: Nando Wiggins on 12-24-2024 MCV (RBC) [Entitic vol] 91.3 fL 80-94 [facility] Mean corpuscular hemoglobin (MCH) determinationOrdered By: Nando Wiggins on 12-24-2024 MCH (RBC) [Entitic mass] 29.0 pg 27.0-32.0 [facility] Monocyte percentageOrdered B y: Nando Wiggins on 12-24-2024 Monocytes/100 WBC (Bld) 11.3 % High 0-10 [facility] Neutrophil percentageOrdered By: Nando Wiggins on 12-24-2024 Neutrophils/100 WBC (Bld) 65.4 % 47-70 [facility] Platelet countOrdered By: Kathie Wiggins on 12-24-2024 Platelets (Bld) [#/Vol] 180 10*3/uL 150-450 [facility] Potassium measurement (mass/ volume)Ordered By: Nando Wiggins on 12-24-2024 Potassium (Unsp spec) [Mass/Vol] 4.6 mmol/L 3.3-5.1 [facility] RBC Auto (Bld) [#/Vol]Ordere d By: Nando Wiggins on 12-24-2024 RBC (Bld) [#/Vol] 3.45 10*6/uL Low 4.6-6.2 [facility] Serum creatinine measurement (mass/volume)Ordered By: Nando Wiggins on 12-24-2024 Creatinine [Mass/Vol] 5.37 mg/dL High 0.70-1.20 [facility] [place] Serum glucose measurement (m ass/volume)Ordered By: Nando Wiggins on 12-24-2024 Glucose [Mass/Vol] 131 mg/dL High 70-99 [facility] Serum or plasma calcium lilli urement (mass/volume)Ordered By: Nando Wiggins on 12-24-2024 Calcium [Mass/Vol] 9.1 mg/dL 7.6-11.0 [facility] Serum or plasma urea nitroge n measurement (mass/volume)Ordered By: Nando Wiggins on 12-24-2024 Urea nitrogen [Mass/Vol] 52 mg/dL High 4-19 [facility] Sodium levelOrdered By: Deb Wiggins on 12-24-2024 Sodium [Moles/Vol] 134 mmol/L 133-145 [facility] White blood cell (WBC) count Ordered By: Nando Wiggins on 12-24-2024 WBC (Bld) [#/Vol] 8.6 10*3/uL 4.4-11.0 [facility] Bilirubin directOrdered By: Nando Wiggins on 12-19-2024 Bilirubin.direct [Mass/Vol] 0.12 mg/dL 0.00-0.30 [facility] Bilirubin, totalOrdered By: Nando Wiggins on 12-19-2024 Bilirubin [Mass/Vol] 0.28 mg/dL 0.00-1.30 [facility] Hemoglobin A1c percentageOrd ered By: Nando Wiggins on 12-19-2024 HbA1c (Bld) [Mass fraction] 7.6 % High <5.7 [facility] No Panel InformationOrdered By: Nando Wiggins on 12-19-2024 16 U/L <38 [facility] Serum globulin measurementOr dered By: Nando Wiggins on 12-19-2024 Globulin (S) [Mass/Vol] 3.0 g/dL 2.2-4.2 [facility] Serum or plasma alanine hawkins otransferase (ALT) measurementOrdered By: Nando Wiggins on 12-19-2024 ALT [Catalytic activity/Vol] 30 U/L <47 [facility] Serum or plasma albumin lilli urement (mass/volume)Ordered By: Nando Wiggins on 12-19-2024 Albumin [Mass/Vol] 3.6 g/dL 3.4-4.8 [facility] Serum or plasma alkaline penelope sphatase measurementOrdered By: Nando Wiggins on 12-19-2024 ALP [Catalytic activity/Vol] 69 U/L 40-129 [facility] Total proteinOrdered By: Sinan Wiggins on 12-19-2024 Protein [Mass/Vol] 6.6 g/dL 5.9-8.4 [facility] Vitamin B12 ser/plasOrdered By: Nando Wiggins on 12-19-2024 Cobalamin (Vitamin B12) [Mass/Vol] 777 pg/mL 180-914 [facility] Bilirubin directOrdered By: Nando Wiggins on 12-12-2024 Bilirubin.direct [Mass/Vol] 0.13 mg/dL 0.00-0.30 [facility] Bilirubin, totalOrdered By: Nando Wiggins on 12-12-2024 Bilirubin [Mass/Vol] 0.27 mg/dL 0.00-1.30 [facility] Hemoglobin A1c percentageOrd ered By: Nando Wiggins on 12-12-2024 HbA1c (Bld) [Mass fraction] 7.3 % High <5.7 [facility] No Panel InformationOrdered By: Nando Wiggins on 12-12-2024 33 U/L <38 [facility] Serum globulin measurementOr dered By: Nando Wiggins on 12-12-2024 Globulin (S) [Mass/Vol] 3.2 g/dL 2.2-4.2 [facility] Serum or plasma alanine hawkins otransferase (ALT) measurementOrdered By: Nando Wiggins on 12-12-2024 ALT [Catalytic activity/Vol] 49 U/L High <47 [facility] Serum or plasma albumin lilli urement (mass/volume)Ordered By: Nando Wiggins on 12-12-2024 Albumin [Mass/Vol] 3.6 g/dL 3.4-4.8 [facility] Serum or plasma alkaline penelope sphatase measurementOrdered By: Nando Wiggins on 12-12-2024 ALP [Catalytic activity/Vol] 71 U/L 40-129 [facility] Total proteinOrdered By: Sinan Wiggins on 12-12-2024 Protein [Mass/Vol] 6.8 g/dL 5.9-8.4 [facility] Vitamin B12 ser/plasOrdered By: Nando Wiggins on 12-12-2024 Cobalamin (Vitamin B12) [Mass/Vol] 719 pg/mL 180-914 [facility] CNPNon 12-11-2024 CNPN Normal [facility] Basic metabolic 2000 panelon 11-28-2024 Anion gap [Moles/Vol] 10 mmol/L Normal 8-15 [facility] Comment on above: Order Comment: Lesvia aleman Type: BLOOD SPECIMENOrdering Facility: [facility] Address: [address] [place] [address] Performed By: #### 2 4321-2, 67521-5 ####[facility] LABCLIA [id number] [place] [address] [place] Calcium [Mass/Vol] 8.8 mg/dL Normal 8.5-10.2 [facility] Comment on above: Order Comment: Speci men Type: BLOOD SPECIMENOrdering Facility: [facility] Address: [address] [place] [address] Performed By: #### 2 4321-2, ####[facility] LABCLIA [id number] [address] [address] [place] Chloride [Moles/Vol] 96 mmol/L Low 98-107 [facility] Comment on above: Order Comment: Speci men Type: BLOOD SPECIMENOrdering Facility: [facility] Address: [address] [place], [place] [address] Performed By: #### 2 4321-2, ####[facility] LABCLIA [id number] [place] [id number] [place] CO2 [Moles/Vol] 26 mmol/L Normal 22-30 [facility] Comment on above: Order Comment: Speci men Type: BLOOD SPECIMENOrdering Facility: [facility] Address: [address] [place] [address] Performed By: #### 2 432-2, ####[facility] LABCLIA [id number] [place] [address] [place] Creatinine [Mass/Vol] 2.74 mg/dL High 0.73-1.22 [facility] Comment on above: Order Comment: Speci men Type: BLOOD SPECIMENOrdering Facility: [facility] Address: [address] [place], [place] [address] Performed By: #### 2 4321-2, ####[facility] LABCLIA [id number] [place] [id number] [place] Creatinine and Glomerular filtration rate.predicted panel (S/P/Bld) 22 mL/min/1.73m??? Low >=60 [facility] Comment on above: Order Comment: Speci men Type: BLOOD SPECIMENOrdering Facility: [facility] Address: [address] [place], [place] [address] Result Comment: Tessa mated Glomerular Filtration Rate [...] reflect actual GFR. Performed By: #### 2 4320-, ####[facility] LABIA [id number] [place] [id number] [place] Glucose [Mass/Vol] 153 mg/dL High 74-99 [facility] Comment on above: Order Comment: Speclena aleman Type: BLOOD SPECIMENOrdering Facility: [facility] Address: [address] [place] [address] Result Comment: The [place] [employer] (ADA) provides guidance for cutoff [...] Standards of Medical Care in Diabetes 2016, [place] [employer]. Diabetes Care. 2016.39(Suppl 1). Performed By: #### 2 4320-06, ####[facility] LABIA [id number] [address] [address] [place] Potassium [Moles/Vol] 4.4 mmol/L Normal 3.7-5.1 [facility] Comment on above: Order Comment: Lesvia aleman Type: BLOOD SPECIMENOrdering Facility: [facility] Address: [address] [place] [address] Performed By: #### 2 4320-06, ####[facility] LABCLIA [id number] [facility] [address] [address] [place] Sodium [Moles/Vol] 132 mmol/L Low 136-144 [facility] Comment on above: Order Comment: Speci men Type: BLOOD SPECIMENOrdering Facility: [facility] Address: [address] [place] [address] Performed By: #### 2 4321-2, 36616-4 ####[facility] LABCLIA [id number] [place] [address] [place] Urea nitrogen [Mass/Vol] 22 mg/dL Normal 9-24 [facility] Comment on above: Order Comment: Speci men Type: BLOOD SPECIMENOrdering Facility: [facility] Address: [address] [place] [address] Performed By: #### 2 4321-2, ####[facility] LABCLIA [id number] [place] [address] [place] CASE MANAGEMon 11-28-2024 CASE MANAGEM Normal [facility] CBC panel Auto (Bld)on 11-28 Erythrocyte distribution width (RBC) [Ratio] 15.9 % High 11.5-15.0 [facility] Comment on above: Order Comment: Speci men Type: BLOOD SPECIMENOrdering Facility: [facility] Address: [address] [place] [address] Performed By: #### 5 8410-2 ####[facility] LABIA [id number] [place] [id number] [place] Hematocrit (Bld) [Volume fraction] 33.2 % Low 39.0-51.0 [facility] Comment on above: Order Comment: Speci men Type: BLOOD SPECIMENOrdering Facility: [facility] Address: [address] [place] [address] Performed By: #### 5 8410-2 ####[facility] LABCLIA [id number] [address] [place] Hemoglobin (Bld) [Mass/Vol] 10.4 g/dL Low 13.0-17.0 [facility] Comment on above: Order Comment: Speci men Type: BLOOD SPECIMENOrdering Facility: [facility] Address: [address] [place] [address] Performed By: #### 5 8410-2 ####[facility] LABIA [id number] [address] [place] MCH (RBC) [Entitic mass] 28.3 pg Normal 26.0-34.0 [facility] Comment on above: Order Comment: Speci men Type: BLOOD SPECIMENOrdering Facility: [facility] Address: [address] [place] [address] Performed By: #### 5 8410-2 ####[facility] LABIA [id number] [address] [place] MCHC (RBC) [Mass/Vol] 31.3 g/dL Normal 30.5-36.0 [facility] Comment on above: Order Comment: Speci men Type: BLOOD SPECIMENOrdering Facility: [facility] Address: [address] [place] [address] Performed By: #### 5 8410-2 ####[facility] LABIA [id number] [place] [address] [place] MCV (RBC) [Entitic vol] 90.2 fL Normal 80.0-100.0 [facility] Comment on above: Order Comment: Speci men Type: BLOOD SPECIMENOrdering Facility: [facility] Address: [address] [place] [address] Performed By: #### 5 8410-2 ####[facility] LABCLIA [id number] [place] [address] [place] Nucleated RBC (Bld) [#/Vol] 10*3/uL Normal <0.01 [facility] Comment on above: Order Comment: Speci men Type: BLOOD SPECIMENOrdering Facility: [facility] Address: [address] [place] [address] Performed By: #### 5 8410-2 ####[facility] LABCLIA [id number] [address] [address] [place] Platelet mean volume (Bld) [Entitic vol] 12.8 fL High 9.0-12.7 [facility] Comment on above: Order Comment: Speci men Type: BLOOD SPECIMENOrdering Facility: [facility] Address: [address] [place] [address] Performed By: #### 5 8410-2 ####[facility] LABIA [id number] [place] [address] [place] Platelets (Bld) [#/Vol] 126 10*3/uL Low 150-400 [facility] Comment on above: Order Comment: Speci men Type: BLOOD SPECIMENOrdering Facility: [facility] Address: [address] [place] [address] Performed By: #### 5 8410-2 ####[facility] LABIA [id number] [place] [address] [place] RBC (Bld) [#/Vol] 3.68 10*6/uL Low 4.20-6.00 [facility] Comment on above: Order Comment: Speci men Type: BLOOD SPECIMENOrdering Facility: [facility] Address: [address] [place] [address] Performed By: #### 5 8410-2 ####[facility] LABIA [id number] [place] [address] [place] WBC (Bld) [#/Vol] 7.99 10*3/uL Normal 3.70-11.00 [facility] Comment on above: Order Comment: Speci men Type: BLOOD SPECIMENOrdering Facility: [facility] Address: [address] [place] [address] Performed By: #### 5 8410-2 ####[facility] LABCLIA [id number] [place] [id number] [place] CNDSon 11-28-2024 CNDS Normal [facility] CONSULT PROGon 11-28-2024 CONSULT PROG Normal [facility] Magnesium SerPl-mCncon 11-28 Magnesium [Mass/Vol] 2.1 mg/dL Normal 1.7-2.3 [facility] Comment on above: Order Comment: Speci men Type: BLOOD SPECIMENOrdering Facility: [facility] Address: [address] [place] [address] Performed By: #### 2 4321-2, 58915-6 ####[facility] LABCLIA [id number] [place] [id number] [place] THERAPY NTon 11-28-2024 THERAPY NT Normal [facility] XR CHEST 1V FRONTAL PORTon 0 11-28-2024 XR CHEST 1V FRONTAL PORT Normal [facility] ALLIED HEALTHon 11-27-2024 ALLIED HEALTH Normal [facility] ARTERIAL BLOOD GASESon 11-27 Base excess Calc (Bld) [Moles/Vol] 4 mmol/L High 0-2 [facility] Comment on above: Order Comment: Speci men Type: ARTERIAL BLOOD SPECIMENOrdering Facility: [facility] Address: [address] [place] [address] Performed By: #### A LLBG ####[facility] LABCLIA [id number] [address] [address] [place] Body temperature 97.88 [degF] Normal [facility] Comment on above: Order Comment: Speci men Type: ARTERIAL BLOOD SPECIMENOrdering Facility: [facility] Address: [address] [place] [id number] Performed By: #### A LLBG ####[facility] LABCLIA [id number] [place] [id number] [place] Calcium.ionized (Bld) [Mass/Vol] 1.10 mmol/L Normal 1.08-1.30 [facility] Comment on above: Order Comment: Speci men Type: ARTERIAL BLOOD SPECIMENOrdering Facility: [facility] Address: [address] [place] [address] Performed By: #### A LLBG ####[facility] LABCLIA [id number] [address] [place] Calcium.ionized adjusted to pH 7.4 (BldA) [Moles/Vol] 1.10 mmol/L Normal 1.08-1.30 [facility] Comment on above: Order Comment: Speci men Type: ARTERIAL BLOOD SPECIMENOrdering Facility: [facility] Address: [address] [place] [address] Performed By: #### A LLBG ####[facility] LABCLIA [id number] [address] [place] Carboxyhemoglobin (BldA) [Mass fraction] 1.2 % Normal 0.0-2.0 [facility] Comment on above: Order Comment: Speci men Type: ARTERIAL BLOOD SPECIMENOrdering Facility: [facility] Address: [address] [place] [address] Result Comment: Carb oxyhemoglobin Reference Range for Smokers: 2.0-8.0% Performed By: #### A LLBG ####[facility] LABCLIA [id number] [place] [address] [place] CO2 (Bld) [Partial pressure] 48 mm Hg High 36-46 [facility] Comment on above: Order Comment: Speci men Type: ARTERIAL BLOOD SPECIMENOrdering Facility: [facility] Address: [address] [place] [address] Performed By: #### A LLBG ####[facility] LABCLIA [id number] [place] [address] [place] CO2 adjusted to patient's actual temperature (Bld) [Partial pressure] 47 mmHg High 36-46 [facility] Comment on above: Order Comment: Speci men Type: ARTERIAL BLOOD SPECIMENOrdering Facility: [facility] Address: [address] [place] [address] Performed By: #### A LLBG ####[facility] LABCLIA [id number] [address] [place] [address] [place] Glucose [Mass/Vol] 164 mg/dL High 60-105 [facility] Comment on above: Order Comment: Speci men Type: ARTERIAL BLOOD SPECIMENOrdering Facility: [facility] Address: [address] [place] [address] Performed By: #### A LLBG ####[facility] LABCLIA [id number] [place] [id number] [place] HCO3 (Bld) [Moles/Vol] 29 mmol/L High 22-26 [facility] Comment on above: Order Comment: Speci men Type: ARTERIAL BLOOD SPECIMENOrdering Facility: [facility] Address: [address] [place] [address] Performed By: #### A LLBG ####[facility] LABCLIA [id number] [place] [address] [place] Hematocrit (Bld) [Volume fraction] 32.8 % Low 39.0-51.0 [facility] Comment on above: Order Comment: Speci men Type: ARTERIAL BLOOD SPECIMENOrdering Facility: [facility] Address: [address] [place] [address] Performed By: #### A LLBG ####[facility] LABCLIA [id number] [place] [id number] [place] Hemoglobin (Bld) [Mass/Vol] 10.6 g/dL Low 13.0-17.0 [facility] Comment on above: Order Comment: Speci men Type: ARTERIAL BLOOD SPECIMENOrdering Facility: [facility] Address: [address] [place] [address] Performed By: #### A LLBG ####[facility] LABCLIA [id number] [address] [address] [place] Lactate [Moles/Vol] 1.2 mmol/L Normal 0.5-2.2 [facility] Comment on above: Order Comment: Speci men Type: ARTERIAL BLOOD SPECIMENOrdering Facility: [facility] Address: [address] [place] [address] Performed By: #### A LLBG ####[facility] LABCLIA [id number] [address] [address] [place] Methemoglobin (Bld) [Mass fraction] 1.5 % Normal 0.0-1.5 [facility] Comment on above: Order Comment: Speci men Type: ARTERIAL BLOOD SPECIMENOrdering Facility: [facility] Address: [address] [place] [address] Performed By: #### A LLBG ####[facility] LABCLIA [id number] [place] [id number] [place] O2 THERAPY RA=Room Air Normal [facility] Comment on above: Order Comment: Speci men Type: ARTERIAL BLOOD SPECIMENOrdering Facility: [facility] Address: [address] [place] [address] Performed By: #### A LLBG ####[facility] LABCLIA [id number] [address] [address] [place] Oxygen (Bld) [Partial pressure] 114 mm Hg High 85-95 [facility] Comment on above: Order Comment: Speci men Type: ARTERIAL BLOOD SPECIMENOrdering Facility: [facility] Address: [address] [place] [address] Performed By: #### A LLBG ####[facility] LABCLIA [id number] [address] [address] [place] Oxygen adjusted to patient's actual temperature (Bld) [Partial pressure] 111 mmHg High 85-95 [facility] Comment on above: Order Comment: Speci men Type: ARTERIAL BLOOD SPECIMENOrdering Facility: [facility] Address: [address] [place] [address] Performed By: #### A LLBG ####[facility] LABCLIA [id number] [address] [address] [place] Oxyhemoglobin (BldA) [Mass fraction] 95 % Normal 95-98 [facility] Comment on above: Order Comment: Speci men Type: ARTERIAL BLOOD SPECIMENOrdering Facility: [facility] Address: [address] [place] [address] Performed By: #### A LLBG ####[facility] LABCLIA [id number] [place] [address] [place] pH (Bld) 7.40 [pH] Normal 7.35-7.45 [facility] Comment on above: Order Comment: Speci men Type: ARTERIAL BLOOD SPECIMENOrdering Facility: [facility] Address: [address] [place] [address] Performed By: #### A LLBG ####[facility] LABCLIA [id number] [place] [address] [place] pH adjusted to patient's actual temperature (Bld) 7.41 Normal 7.35-7.45 [facility] Comment on above: Order Comment: Speci men Type: ARTERIAL BLOOD SPECIMENOrdering Facility: [facility] Address: [address] [place] [address] Performed By: #### A LLBG ####[facility] LABCLIA [id number] [place] [id number] [place] PO2 / FIO2 RATIO 543 mmHg Normal >300 [facility] Comment on above: Order Comment: Speci men Type: ARTERIAL BLOOD SPECIMENOrdering Facility: [facility] Address: [address] [place] [address] Performed By: #### A LLBG ####[facility] LABCLIA [id number] [place] [address] [place] Potassium [Moles/Vol] 4.3 mmol/L Normal 3.5-5.0 [facility] Comment on above: Order Comment: Speci men Type: ARTERIAL BLOOD SPECIMENOrdering Facility: [facility] Address: [address] [place] [address] Performed By: #### A LLBG ####[facility] LABIA [id number] [place] [address] [place] Sodium [Moles/Vol] 132 mmol/L Low 136-144 [facility] Comment on above: Order Comment: Speci men Type: ARTERIAL BLOOD SPECIMENOrdering Facility: [facility] Address: [address] [place] [address] Performed By: #### A LLBG ####[facility] [id number] [place] [address] [place] BUN p dialysis SerPl-mCncon 11-27-2024 Urea nitrogen post dialysis [Mass/Vol] 18 mg/dL Normal 02-13 [facility] Comment on above: Order Comment: Speci men Type: BLOOD SPECIMENOrdering Facility: [facility] Address: [address] [place] [address] Performed By: #### 1 1064-3 ####[facility] LABIA [id number] [place] [address] [place] BUN pre dial SerPl-mCncon Urea nitrogen pre dialysis [Mass/Vol] 50 mg/dL High - [facility] Comment on above: Order Comment: Speci men Type: BLOOD SPECIMENOrdering Facility: [facility] Address: [address] [place] [address] Performed By: #### 1 1065-0 ####[facility] LABIA [id number] [place] [address] [place] Basic Metabolic Profile (BMP )on 11-27-2024 BUN Normal 4-19 [facility] Comment on above: Result Comment: Canc elled via OM: MD Ordered Performed By: #### L 100.0100, L500.2500 ####[facility] [address] [place], [address] BUN/CRE Normal 10-20 [facility] Comment on above: Result Comment: Canc elled via OM: MD Ordered Performed By: #### L 100.0100, L500.2500 ####[facility] [address] [place], [address] Calcium Normal 7.6-11.0 [facility] Comment on above: Result Comment: Canc elled via OM: MD Ordered Performed By: #### L 100.0100, L500.2500 ####[facility] [address] [place], [address] CL Normal 98-108 [facility] Comment on above: Result Comment: Canc elled via OM: MD Ordered Performed By: #### L 100.0100, L500.2500 ####[facility] [address] [place], [address] CO2 Normal 21.0-32.0 [facility] Comment on above: Result Comment: Canc elled via OM: MD Ordered Performed By: #### L 100.0100, L500.2500 ####[facility] [address] [place], [address] CREAT,SERUM Normal 0.70-1.20 [facility] Comment on above: Result Comment: Canc elled via OM: MD Ordered Performed By: #### L 100.0100, L500.2500 ####[facility] [address] [place], [address] eGFR Normal >60 [facility] Comment on above: Result Comment: Canc elled via OM: MD Ordered Performed By: #### L 100.0100, L500.2500 ####[facility] [address] [place], [address] GAP Normal 5-15 [facility] Comment on above: Result Comment: Canc elled via OM: MD Ordered Performed By: #### L 100.0100, L500.2500 ####[facility] [address] [place], [address] GLU Normal 70-99 [facility] Comment on above: Result Comment: Canc elled via OM: MD Ordered Performed By: #### L 100.0100, L500.2500 ####[facility] [address] [place], [address] Potassium Normal 3.3-5.1 [facility] Comment on above: Result Comment: Canc elled via OM: MD Ordered Performed By: #### L 100.0100, L500.2500 ####[facility] [address] [place], [address] Basic Metabolic Profile (BMP) Normal 133-145 [facility] Comment on above: Result Comment: Canc elled via OM: MD Ordered Performed By: #### L 100.0100, L500.2500 ####[facility] [address] [place], [address] CASE MANAGEMon 07- CASE MANAGEM Normal [facility] CBC W/Diff, Automatedon 07-0 Absolute Neut Normal 2.0-7.7 [facility] Comment on above: Result Comment: Canc elled via OM: MD Ordered Performed By: #### L 100.0100, L500.2500 ####[facility] [address] [place], [address] HCT Normal 40-54 [facility] Comment on above: Result Comment: Canc elled via OM: MD Ordered Performed By: #### L 100.0100, L500.2500 ####[facility] [address] [place], [address] HGB Normal 13.0-16.5 [facility] Comment on above: Result Comment: Canc elled via OM: MD Ordered Performed By: #### L 100.0100, L500.2500 ####[facility] [address] [place], [address] MCH Normal 27.0-32.0 [facility] Comment on above: Result Comment: Canc elled via OM: MD Ordered Performed By: #### L 100.0100, L500.2500 ####[facility] [address] [place], [address] MCHC Normal 32-36 [facility] Comment on above: Result Comment: Canc elled via OM: MD Ordered Performed By: #### L 100.0100, L500.2500 ####[facility] [address] [place], [address] MCV Normal 80-94 [facility] Comment on above: Result Comment: Canc elled via OM: MD Ordered Performed By: #### L 100.0100, L500.2500 ####[facility] [address] [place], [address] NEUT% Normal 47-70 [facility] Comment on above: Result Comment: Canc elled via OM: MD Ordered Performed By: #### L 100.0100, L500.2500 ####[facility] [address] [place], [address] PLT Normal 150-450 [facility] Comment on above: Result Comment: Canc elled via OM: MD Ordered Performed By: #### L 100.0100, L500.2500 ####[facility] [address] [place], [address] RBC Normal 4.6-6.2 [facility] Comment on above: Result Comment: Canc elled via OM: MD Ordered Performed By: #### L 100.0100, L500.2500 ####[facility] [address] [place], [address] RDW CV Normal 11.6-14.6 [facility] Comment on above: Result Comment: Canc elled via OM: MD Ordered Performed By: #### L 100.0100, L500.2500 ####[facility] [address] [place], [address] RDW SD Normal 35.1-43.9 [facility] Comment on above: Result Comment: Canc elled via OM: MD Ordered Performed By: #### L 100.0100, L500.2500 ####[facility] [address] [place], [address] WBC Normal 4.4-11.0 [facility] Comment on above: Result Comment: Canc elled via OM: MD Ordered Performed By: #### L 100.0100, L500.2500 ####[facility] [address] [place], [address] CBC panel Auto (Bld)on 11-27 Erythrocyte distribution width (RBC) [Ratio] 15.8 % High 11.5-15.0 [facility] Comment on above: Order Comment: Speci men Type: BLOOD SPECIMENOrdering Facility: [facility] Address: [address] [place] [address] Performed By: #### 5 8410-2 ####[facility] LABCLIA [id number] [address] [address] [place] Hematocrit (Bld) [Volume fraction] 31.4 % Low 39.0-51.0 [facility] Comment on above: Order Comment: Speci men Type: BLOOD SPECIMENOrdering Facility: [facility] Address: [address] [place] [address] Performed By: #### 5 8410-2 ####[facility] LABCLIA [id number] [place] [address] [place] Hemoglobin (Bld) [Mass/Vol] 10.1 g/dL Low 13.0-17.0 [facility] Comment on above: Order Comment: Speci men Type: BLOOD SPECIMENOrdering Facility: [facility] Address: [address] [place] [address] Performed By: #### 5 8410-2 ####[facility] LABIA [id number] [place] [address] [place] MCH (RBC) [Entitic mass] 28.4 pg Normal 26.0-34.0 [facility] Comment on above: Order Comment: Speci men Type: BLOOD SPECIMENOrdering Facility: [facility] Address: [address] [place] [address] Performed By: #### 5 8410-2 ####[facility] LABIA [id number] [address] [place] MCHC (RBC) [Mass/Vol] 32.2 g/dL Normal 30.5-36.0 [facility] Comment on above: Order Comment: Speci men Type: BLOOD SPECIMENOrdering Facility: [facility] Address: [address] [place] [address] Performed By: #### 5 8410-2 ####[facility] LABIA [id number] [place] [address] [place] MCV (RBC) [Entitic vol] 88.2 fL Normal 80.0-100.0 [facility] Comment on above: Order Comment: Speci men Type: BLOOD SPECIMENOrdering Facility: [facility] Address: [address] [place] [address] Performed By: #### 5 8410-2 ####[facility] LABCLIA [id number] [place] [address] [place] Nucleated RBC (Bld) [#/Vol] 10*3/uL Normal <0.01 [facility] Comment on above: Order Comment: Speci men Type: BLOOD SPECIMENOrdering Facility: [facility] Address: [address] [place] [address] Performed By: #### 5 8410-2 ####[facility] LABIA [id number] [place] [address] [place] Platelet mean volume (Bld) [Entitic vol] 12.9 fL High 9.0-12.7 [facility] Comment on above: Order Comment: Speci men Type: BLOOD SPECIMENOrdering Facility: [facility] Address: [address] [place] [address] Performed By: #### 5 8410-2 ####[facility] LABIA [id number] [place] [address] [place] Platelets (Bld) [#/Vol] 141 10*3/uL Low 150-400 [facility] Comment on above: Order Comment: Speci men Type: BLOOD SPECIMENOrdering Facility: [facility] Address: [address] [place] [address] Performed By: #### 5 8410-2 ####[facility] LABIA [id number] [place] [address] [place] RBC (Bld) [#/Vol] 3.56 10*6/uL Low 4.20-6.00 [facility] Comment on above: Order Comment: Speci men Type: BLOOD SPECIMENOrdering Facility: [facility] Address: [address] [place] [address] Performed By: #### 5 8410-2 ####[facility] LABIA [id number] [place] [address] [place] WBC (Bld) [#/Vol] 8.24 10*3/uL Normal 3.70-11.00 [facility] Comment on above: Order Comment: Speci men Type: BLOOD SPECIMENOrdering Facility: [facility] Address: [address] [place] [address] Performed By: #### 5 8410-2 ####[facility] LABCLIA [id number] [address] [address] [place] CONSULT PROGon 11-27-2024 CONSULT PROG Normal [facility] CONSULT PROG Normal [facility] Comprehensive metabolic 2000 panelon 11-27-2024 Albumin [Mass/Vol] 3.1 g/dL Low 3.9-4.9 [facility] Comment on above: Order Comment: Speci men Type: BLOOD SPECIMENOrdering Facility: [facility] Address: [address] [place], [place] [address] Performed By: #### 2 4323-8, , 2776-05 ####[facility] LABCLIA [id number] [place] [id number] [place] ALP [Catalytic activity/Vol] 62 U/L Normal 38-113 [facility] Comment on above: Order Comment: Speci men Type: BLOOD SPECIMENOrdering Facility: [facility] Address: [address] [place], [place] [address] Performed By: #### 2 4323-8, , 2776-05 ####[facility] LABCLIA [id number] [place] [id number] [place] ALT [Catalytic activity/Vol] 30 U/L Normal 10-54 [facility] Comment on above: Order Comment: Speci men Type: BLOOD SPECIMENOrdering Facility: [facility] Address: [address] [place] [address] Performed By: #### 2 4323-8, , 2776-05 ####[facility] LABCLIA [id number] [place] [id number] [place] Anion gap [Moles/Vol] 13 mmol/L Normal 8-15 [facility] Comment on above: Order Comment: Speci men Type: BLOOD SPECIMENOrdering Facility: [facility] Address: [address] [place] [address] Performed By: #### 2 4323-8, , 2776-05 ####[facility] LABCLIA [id number] [place] [id number] [place] AST [Catalytic activity/Vol] 23 U/L Normal 14-40 [facility] Comment on above: Order Comment: Speci men Type: BLOOD SPECIMENOrdering Facility: [facility] Address: [address] [place] [address] Result Comment: Resu lts may be falsely increased due to interference from hemolysis. Suggest reorder as clinically indicated. Performed By: #### 2 4323-8, , 2776-05 ####[facility] LABCLIA [id number] [place] [address] [place] Bilirubin [Mass/Vol] 0.2 mg/dL Normal 0.2-1.3 [facility] Comment on above: Order Comment: Speci men Type: BLOOD SPECIMENOrdering Facility: [facility] Address: [address] [place] [address] Performed By: #### 2 4323-8, , 2776-05 ####[facility] LABCLIA [id number] [place] [address] [place] Calcium [Mass/Vol] 8.6 mg/dL Normal 8.5-10.2 [facility] Comment on above: Order Comment: Speci men Type: BLOOD SPECIMENOrdering Facility: [facility] Address: [address] [place] [address] Performed By: #### 2 4323-8, , 2776-05 ####[facility] LABCLIA [id number] [place] [id number] [place] Chloride [Moles/Vol] 93 mmol/L Low 98-107 [facility] Comment on above: Order Comment: Speci men Type: BLOOD SPECIMENOrdering Facility: [facility] Address: [address] [place] [address] Performed By: #### 2 4323-8, , 2776-05 ####[facility] LABIA [id number] [place] [id number] [place] CO2 [Moles/Vol] 27 mmol/L Normal 22-30 [facility] Comment on above: Order Comment: Speci men Type: BLOOD SPECIMENOrdering Facility: [facility] Address: [address] [place] [address] Performed By: #### 2 4323-8, , 2776-05 ####[facility] LABIA [id number] [place] [address] [place] Creatinine [Mass/Vol] 4.19 mg/dL High 0.73-1.22 [facility] Comment on above: Order Comment: Speci men Type: BLOOD SPECIMENOrdering Facility: [facility] Address: [address] [place] [address] Performed By: #### 2 4323-8, , 2776-05 ####[facility] [id number] [place] [address] [place] Creatinine and Glomerular filtration rate.predicted panel (S/P/Bld) 13 mL/min/1.73m??? Low >=60 [facility] Comment on above: Order Comment: Speci men Type: BLOOD SPECIMENOrdering Facility: [facility] Address: [address] [place] [address] Result Comment: Tessa mated Glomerular Filtration Rate [...] Performed By: #### 2 4323-8, , 2776-05 ####[facility] LABCLIA [id number] [address] [address] [place] Glucose [Mass/Vol] 174 mg/dL High 74-99 [facility] Comment on above: Order Comment: Speci men Type: BLOOD SPECIMENOrdering Facility: [facility] Address: [address] [place] [address] Result Comment: The [place] [employer] (ADA) provides guidance for cutoff [...] Standards of Medical Care in Diabetes 2016, [place] [employer]. Diabetes Care. 2016.39(Suppl 1). Performed By: #### 2 4323-8, , 2776-05 ####[facility] LABIA [id number] [place] [id number] [place] Potassium [Moles/Vol] 4.2 mmol/L Normal 3.7-5.1 [facility] Comment on above: Order Comment: Speci men Type: BLOOD SPECIMENOrdering Facility: [facility] Address: [address] [place] [address] Performed By: #### 2 4323-8, 58796-5, 2776-05 ####[facility] LABIA [id number] [place] [id number] [place] Protein [Mass/Vol] 6.0 g/dL Low 6.3-8.0 [facility] Comment on above: Order Comment: Speci men Type: BLOOD SPECIMENOrdering Facility: [facility] Address: [address] [place] [address] Performed By: #### 2 4323-8, 26334-3, 2777- ####[facility] LABCLIA [id number] [address] [address] [place] Sodium [Moles/Vol] 133 mmol/L Low 136-144 [facility] Comment on above: Order Comment: Speci men Type: BLOOD SPECIMENOrdering Facility: [facility] Address: [address] [place], [place] [address] Performed By: #### 2 4323-8, , 2776-05 ####[facility] LABCLIA [id number] [place] [id number] [place] Urea nitrogen [Mass/Vol] 43 mg/dL High 9-24 [facility] Comment on above: Order Comment: Speci men Type: BLOOD SPECIMENOrdering Facility: [facility] Address: [address] [place], [place] [address] Performed By: #### 2 4323-8, , 27711-20 ####[facility] LABIA [id number] [place] [id number] [place] Magnesium SerPl-mCncon 11-27 Magnesium [Mass/Vol] 2.2 mg/dL Normal 1.7-2.3 [facility] Comment on above: Order Comment: Speci men Type: BLOOD SPECIMENOrdering Facility: [facility] Address: [address] [place], [place] [address] Performed By: #### 2 4323-8, , 27711-20 ####[facility] LABIA [id number] [address] [address] [place] Phosphate SerPl-mCncon 11-27 Phosphate [Mass/Vol] 5.9 mg/dL High 2.7-4.8 [facility] Comment on above: Order Comment: Speci men Type: BLOOD SPECIMENOrdering Facility: [facility] Address: [address] [place], [place] [address] Result Comment: Resu lt rechecked. Performed By: #### 2 4323-8, 34374-0, 2777-1 ####[facility] LABCLIA [id number] [place] [address] [place] TYPE + SCREENon 11-27-2024 ABO A Normal [facility] Comment on above: Order Comment: Speci men Type: BLOOD SPECIMENOrdering Facility: [facility] Address: [address] [place] [address] Performed By: #### T SCR ####[facility] BANKCLIA [id number] [place] [address] [place] Rh Nom (Bld) Positive Normal [facility] Comment on above: Order Comment: Speci men Type: BLOOD SPECIMENOrdering Facility: [facility] Address: [address] [place] [address] Performed By: #### T SCR ####[facility] BLO[facility] BANKCLIA [id number] [place] [address] [place] TYPE AND SCREEN EXPIRATION 11/30/2024 23:59 Normal [facility] Comment on above: Order Comment: Speci men Type: BLOOD SPECIMENOrdering Facility: [facility] Address: [address] [place] [address] Performed By: #### T SCR ####[facility] BLO[facility] BANKCLIA [id number] [place] [address] [place] Urea nitrogen post dialysis [Mass/Vol]on 11-27-2024 UREA REDUCTION RATIO WITH BUNPR 64 % Normal [facility] Comment on above: Order Comment: Speci men Type: BLOOD SPECIMENOrdering Facility: [facility] Address: [address] [place] [address] Performed By: #### 1 1064-3 ####[facility] LABCLIA [id number] [place] [id number] [place] XR CHEST 1V FRONTAL PORTon 0 7-08-2025 XR CHEST 1V FRONTAL PORT Normal [facility] XR CHEST 1V FRONTAL PORT Normal [facility] ANES POSTPROC EVALon 025 ANES POSTPROC EVAL Normal [facility] ANES PRE-OPon 11-26-2024 ANES PRE-OP Normal [facility] ARTERIAL BLOOD GASESon 11-26 Base excess Calc (Bld) [Moles/Vol] 4 mmol/L High 0-2 [facility] Comment on above: Order Comment: Speci men Type: ARTERIAL BLOOD SPECIMENOrdering Facility: [facility] Address: [address] [place] [address] Performed By: #### A LLBG ####[facility] LABIA [id number] [place] [address] [place] Body temperature 98.6 [degF] Normal [facility] Comment on above: Order Comment: Speci men Type: ARTERIAL BLOOD SPECIMENOrdering Facility: [facility] Address: [address] [place] [address] Performed By: #### A LLBG ####[facility] LABCLIA [id number] [place] [address] [place] Calcium.ionized (Bld) [Mass/Vol] 1.13 mmol/L Normal 1.08-1.30 [facility] Comment on above: Order Comment: Speci men Type: ARTERIAL BLOOD SPECIMENOrdering Facility: [facility] Address: [address] [place] [address] Performed By: #### A LLBG ####[facility] LABCLIA [id number] [place] [address] [place] Calcium.ionized adjusted to pH 7.4 (BldA) [Moles/Vol] 1.13 mmol/L Normal 1.08-1.30 [facility] Comment on above: Order Comment: Speci men Type: ARTERIAL BLOOD SPECIMENOrdering Facility: [facility] Address: [address] [place] [address] Performed By: #### A LLBG ####[facility] LABCLIA [id number] [place] [address] [place] Carboxyhemoglobin (BldA) [Mass fraction] 0.0 % Normal 0.0-2.0 [facility] Comment on above: Order Comment: Speci men Type: ARTERIAL BLOOD SPECIMENOrdering Facility: [facility] Address: [address] [place] [address] Result Comment: Carb oxyhemoglobin Reference Range for Smokers: 2.0-8.0% Performed By: #### A LLBG ####[facility] LABCLIA [id number] [place] [address] [place] CO2 (Bld) [Partial pressure] 48 mm Hg High 36-46 [facility] Comment on above: Order Comment: Speci men Type: ARTERIAL BLOOD SPECIMENOrdering Facility: [facility] Address: [address] [place] [address] Performed By: #### A LLBG ####[facility] LABCLIA [id number] [place] [address] [place] Glucose [Mass/Vol] 146 mg/dL High 60-105 [facility] Comment on above: Order Comment: Speci men Type: ARTERIAL BLOOD SPECIMENOrdering Facility: [facility] Address: [address] [place] [address] Performed By: #### A LLBG ####[facility] LABCLIA [id number] [place] [id number] [place] HCO3 (Bld) [Moles/Vol] 29 mmol/L High 22-26 [facility] Comment on above: Order Comment: Speci men Type: ARTERIAL BLOOD SPECIMENOrdering Facility: [facility] Address: [address] [place] [address] Performed By: #### A LLBG ####[facility] LABCLIA [id number] [id number] [address] [place] Hematocrit (Bld) [Volume fraction] 32.1 % Low 39.0-51.0 [facility] Comment on above: Order Comment: Speci men Type: ARTERIAL BLOOD SPECIMENOrdering Facility: [facility] Address: [address] [place] [address] Performed By: #### A LLBG ####[facility] LABCLIA [id number] [place] [address] [place] Hemoglobin (Bld) [Mass/Vol] 10.4 g/dL Low 13.0-17.0 [facility] Comment on above: Order Comment: Speci men Type: ARTERIAL BLOOD SPECIMENOrdering Facility: [facility] Address: [address] [place] [address] Performed By: #### A LLBG ####[facility] LABCLIA [id number] [place] [address] [place] Lactate [Moles/Vol] 0.7 mmol/L Normal 0.5-2.2 [facility] Comment on above: Order Comment: Speci men Type: ARTERIAL BLOOD SPECIMENOrdering Facility: [facility] Address: [address] [place] [address] Performed By: #### A LLBG ####[facility] LABCLIA [id number] [place] [address] [place] LITERS 2 Liters/min Normal [facility] Comment on above: Order Comment: Speci men Type: ARTERIAL BLOOD SPECIMENOrdering Facility: [facility] Address: [address] [place] [address] Performed By: #### A LLBG ####[facility] LABCLIA [id number] [place] [address] [place] Methemoglobin (Bld) [Mass fraction] 0.5 % Normal 0.0-1.5 [facility] Comment on above: Order Comment: Speci men Type: ARTERIAL BLOOD SPECIMENOrdering Facility: [facility] Address: [address] [place] [address] Performed By: #### A LLBG ####[facility] LABCLIA [id number] [place] [id number] [place] O2 THERAPY NC = Nasal Cannula Normal [facility] Comment on above: Order Comment: Speci men Type: ARTERIAL BLOOD SPECIMENOrdering Facility: [facility] Address: [address] [place] [address] Performed By: #### A LLBG ####[facility] LABIA [id number] [place] [id number] [place] Oxygen (Bld) [Partial pressure] 158 mm Hg High 85-95 [facility] Comment on above: Order Comment: Speci men Type: ARTERIAL BLOOD SPECIMENOrdering Facility: [facility] Address: [address] [place] [address] Performed By: #### A LLBG ####[facility] LABIA [id number] [place] [id number] [place] Oxyhemoglobin (BldA) [Mass fraction] 97 % Normal 95-98 [facility] Comment on above: Order Comment: Speci men Type: ARTERIAL BLOOD SPECIMENOrdering Facility: [facility] Address: [address] [place] [address] Performed By: #### A LLBG ####[facility] LABIA [id number] [place] [id number] [place] pH (Bld) 7.40 [pH] Normal 7.35-7.45 [facility] Comment on above: Order Comment: Speci men Type: ARTERIAL BLOOD SPECIMENOrdering Facility: [facility] Address: [address] [place] [address] Performed By: #### A LLBG ####[facility] LABIA [id number] [address] [address] [place] Potassium [Moles/Vol] 3.8 mmol/L Normal 3.5-5.0 [facility] Comment on above: Order Comment: Speci men Type: ARTERIAL BLOOD SPECIMENOrdering Facility: [facility] Address: [address] [place] [address] Performed By: #### A LLBG ####[facility] LABCLIA [id number] [place] [id number] [place] Sodium [Moles/Vol] 134 mmol/L Low 136-144 [facility] Comment on above: Order Comment: Speci men Type: ARTERIAL BLOOD SPECIMENOrdering Facility: [facility] Address: [address] [place] [address] Performed By: #### A LLBG ####[facility] LABIA [id number] [place] [address] [place] Base excess Calc (Bld) [Moles/Vol] 4 mmol/L High 0-2 [facility] Comment on above: Order Comment: Speci men Type: ARTERIAL BLOOD SPECIMENOrdering Facility: [facility] Address: [address] [place] [address] Performed By: #### A LLBG ####[facility] LABIA [id number] [place] [address] [place] Body temperature 97.16 [degF] Normal [facility] Comment on above: Order Comment: Speci men Type: ARTERIAL BLOOD SPECIMENOrdering Facility: [facility] Address: [address] [place] [address] Performed By: #### A LLBG ####[facility] LABIA [id number] [place] [address] [place] Calcium.ionized (Bld) [Mass/Vol] 1.11 mmol/L Normal 1.08-1.30 [facility] Comment on above: Order Comment: Speci men Type: ARTERIAL BLOOD SPECIMENOrdering Facility: [facility] Address: [address] [place] [address] Performed By: #### A LLBG ####[facility] LABIA [id number] [place] [address] [place] Calcium.ionized adjusted to pH 7.4 (BldA) [Moles/Vol] 1.10 mmol/L Normal 1.08-1.30 [facility] Comment on above: Order Comment: Speci men Type: ARTERIAL BLOOD SPECIMENOrdering Facility: [facility] Address: [address] [place] [address] Performed By: #### A LLBG ####[facility] LABIA [id number] [place] [address] [place] Carboxyhemoglobin (BldA) [Mass fraction] 0.9 % Normal 0.0-2.0 [facility] Comment on above: Order Comment: Speci men Type: ARTERIAL BLOOD SPECIMENOrdering Facility: [facility] Address: [address] [place] [address] Result Comment: Carb oxyhemoglobin Reference Range for Smokers: 2.0-8.0% Performed By: #### A LLBG ####[facility] LABIA [id number] [place] [address] [place] CO2 (Bld) [Partial pressure] 48 mm Hg High 36-46 [facility] Comment on above: Order Comment: Speci men Type: ARTERIAL BLOOD SPECIMENOrdering Facility: [facility] Address: [address] [place] [address] Performed By: #### A LLBG ####[facility] LABIA [id number] [place] [address] [place] CO2 adjusted to patient's actual temperature (Bld) [Partial pressure] 46 mmHg Normal 36-46 [facility] Comment on above: Order Comment: Speci men Type: ARTERIAL BLOOD SPECIMENOrdering Facility: [facility] Address: [address] [place] [address] Performed By: #### A LLBG ####[facility] LABIA [id number] [place] [address] [place] Glucose [Mass/Vol] 105 mg/dL Normal 60-105 [facility] Comment on above: Order Comment: Speci men Type: ARTERIAL BLOOD SPECIMENOrdering Facility: [facility] Address: [address] [place] [address] Performed By: #### A LLBG ####[facility] LABCLIA [id number] [place] [address] [place] HCO3 (Bld) [Moles/Vol] 29 mmol/L High 22-26 [facility] Comment on above: Order Comment: Speci men Type: ARTERIAL BLOOD SPECIMENOrdering Facility: [facility] Address: [address] [place] [address] Performed By: #### A LLBG ####[facility] LABCLIA [id number] [place] [address] [place] Hematocrit (Bld) [Volume fraction] 33.0 % Low 39.0-51.0 [facility] Comment on above: Order Comment: Speci men Type: ARTERIAL BLOOD SPECIMENOrdering Facility: [facility] Address: [address] [place] [address] Performed By: #### A LLBG ####[facility] LABCLIA [id number] [place] [address] [place] Hemoglobin (Bld) [Mass/Vol] 10.7 g/dL Low 13.0-17.0 [facility] Comment on above: Order Comment: Speci men Type: ARTERIAL BLOOD SPECIMENOrdering Facility: [facility] Address: [address] [place], [place] [id number] Performed By: #### A LLBG ####[facility] LABCLIA [id number] [place] [id number] [place] Lactate [Moles/Vol] 0.7 mmol/L Normal 0.5-2.2 [facility] Comment on above: Order Comment: Speci men Type: ARTERIAL BLOOD SPECIMENOrdering Facility: [facility] Address: [address] [place] [id number] Performed By: #### A LLBG ####[facility] LABCLIA [id number] [place] [id number] [place] LITERS 4 Liters/min Normal [facility] Comment on above: Order Comment: Speci men Type: ARTERIAL BLOOD SPECIMENOrdering Facility: [facility] Address: [address] [place], [place] [address] Performed By: #### A LLBG ####[facility] LABCLIA [id number] [place] [id number] [place] Methemoglobin (Bld) [Mass fraction] 1.0 % Normal 0.0-1.5 [facility] Comment on above: Order Comment: Speci men Type: ARTERIAL BLOOD SPECIMENOrdering Facility: [facility] Address: [address] [place] [address] Performed By: #### A LLBG ####[facility] LABCLIA [id number] [place] [id number] [place] O2 THERAPY NC = Nasal Cannula Normal [facility] Comment on above: Order Comment: Speci men Type: ARTERIAL BLOOD SPECIMENOrdering Facility: [facility] Address: [address] [place], [place] [id number] Performed By: #### A LLBG ####[facility] LABCLIA [id number] [place] [id number] [place] Oxygen (Bld) [Partial pressure] 154 mm Hg High 85-95 [facility] Comment on above: Order Comment: Speci men Type: ARTERIAL BLOOD SPECIMENOrdering Facility: [facility] Address: [address] [place], [place] [id number] Performed By: #### A LLBG ####[facility] LABCLIA [id number] [address] [address] [place] Oxygen adjusted to patient's actual temperature (Bld) [Partial pressure] 150 mmHg High 85-95 [facility] Comment on above: Order Comment: Speci men Type: ARTERIAL BLOOD SPECIMENOrdering Facility: [facility] Address: [address] [place] [address] Performed By: #### A LLBG ####[facility] LABCLIA [id number] [address] [place] [address] [place] Oxyhemoglobin (BldA) [Mass fraction] 97 % Normal 95-98 [facility] Comment on above: Order Comment: Speci men Type: ARTERIAL BLOOD SPECIMENOrdering Facility: [facility] Address: [address] [place] [address] Performed By: #### A LLBG ####[facility] LABCLIA [id number] [address] [address] [place] pH (Bld) 7.40 [pH] Normal 7.35-7.45 [facility] Comment on above: Order Comment: Speci men Type: ARTERIAL BLOOD SPECIMENOrdering Facility: [facility] Address: [address] [place] [address] Performed By: #### A LLBG ####[facility] LABCLIA [id number] [address] [address] [place] pH adjusted to patient's actual temperature (Bld) 7.41 Normal 7.35-7.45 [facility] Comment on above: Order Comment: Speci men Type: ARTERIAL BLOOD SPECIMENOrdering Facility: [facility] Address: [address] [place], [place] [address] Performed By: #### A LLBG ####[facility] LABIA [id number] [address] [address] [place] Potassium [Moles/Vol] 3.7 mmol/L Normal 3.5-5.0 [facility] Comment on above: Order Comment: Speci men Type: ARTERIAL BLOOD SPECIMENOrdering Facility: [facility] Address: [address] [place] [address] Performed By: #### A LLBG ####[facility] LABCLIA [id number] [place] [address] [place] Sodium [Moles/Vol] 134 mmol/L Low 136-144 [facility] Comment on above: Order Comment: Speci men Type: ARTERIAL BLOOD SPECIMENOrdering Facility: [facility] Address: [address] [place] [address] Performed By: #### A LLBG ####[facility] LABIA [id number] [place] [address] [place] Base deficit (BldA) [Moles/Vol] -1 mmol/L Normal -2-0 [facility] Comment on above: Order Comment: Speci men Type: ARTERIAL BLOOD SPECIMENOrdering Facility: [facility] Address: [address] [place] [address] Performed By: #### A LLBG ####[facility] LABIA [id number] [place] [address] [place] Body temperature 97.7 [degF] Normal [facility] Comment on above: Order Comment: Speci men Type: ARTERIAL BLOOD SPECIMENOrdering Facility: [facility] Address: [address] [place] [address] Performed By: #### A LLBG ####[facility] LABIA [id number] [place] [address] [place] Calcium.ionized (Bld) [Mass/Vol] 1.10 mmol/L Normal 1.08-1.30 [facility] Comment on above: Order Comment: Speci men Type: ARTERIAL BLOOD SPECIMENOrdering Facility: [facility] Address: [address] [place] [address] Performed By: #### A LLBG ####[facility] LABIA [id number] [place] [address] [place] Calcium.ionized adjusted to pH 7.4 (BldA) [Moles/Vol] 1.09 mmol/L Normal 1.08-1.30 [facility] Comment on above: Order Comment: Speci men Type: ARTERIAL BLOOD SPECIMENOrdering Facility: [facility] Address: [address] [place] [address] Performed By: #### A LLBG ####[facility] LABCLIA [id number] [place] [address] [place] Carboxyhemoglobin (BldA) [Mass fraction] 1.0 % Normal 0.0-2.0 [facility] Comment on above: Order Comment: Speci men Type: ARTERIAL BLOOD SPECIMENOrdering Facility: [facility] Address: [address] [place] [address] Result Comment: Carb oxyhemoglobin Reference Range for Smokers: 2.0-8.0% Performed By: #### A LLBG ####[facility] LABCLIA [id number] [place] [address] [place] CO2 (Bld) [Partial pressure] 42 mm Hg Normal 36-46 [facility] Comment on above: Order Comment: Speci men Type: ARTERIAL BLOOD SPECIMENOrdering Facility: [facility] Address: [address] [place] [address] Performed By: #### A LLBG ####[facility] LABCLIA [id number] [place] [address] [place] CO2 adjusted to patient's actual temperature (Bld) [Partial pressure] 41 mmHg Normal 36-46 [facility] Comment on above: Order Comment: Speci men Type: ARTERIAL BLOOD SPECIMENOrdering Facility: [facility] Address: [address] [place] [address] Performed By: #### A LLBG ####[facility] LABCLIA [id number] [place] [address] [place] Glucose [Mass/Vol] 81 mg/dL Normal 60-105 [facility] Comment on above: Order Comment: Speci men Type: ARTERIAL BLOOD SPECIMENOrdering Facility: [facility] Address: [address] [place] [address] Performed By: #### A LLBG ####[facility] LABCLIA [id number] [place] [address] [place] HCO3 (Bld) [Moles/Vol] 24 mmol/L Normal 22-26 [facility] Comment on above: Order Comment: Speci men Type: ARTERIAL BLOOD SPECIMENOrdering Facility: [facility] Address: [address] [place] [address] Performed By: #### A LLBG ####[facility] LABCLIA [id number] [place] [address] [place] Hematocrit (Bld) [Volume fraction] 32.8 % Low 39.0-51.0 [facility] Comment on above: Order Comment: Speci men Type: ARTERIAL BLOOD SPECIMENOrdering Facility: [facility] Address: [address] [place] [address] Performed By: #### A LLBG ####[facility] LABCLIA [id number] [place] [address] [place] Hemoglobin (Bld) [Mass/Vol] 10.6 g/dL Low 13.0-17.0 [facility] Comment on above: Order Comment: Speci men Type: ARTERIAL BLOOD SPECIMENOrdering Facility: [facility] Address: [address] [place] [address] Performed By: #### A LLBG ####[facility] LABCLIA [id number] [place] [address] [place] Lactate [Moles/Vol] 0.5 mmol/L Normal 0.5-2.2 [facility] Comment on above: Order Comment: Speci men Type: ARTERIAL BLOOD SPECIMENOrdering Facility: [facility] Address: [address] [place] [address] Performed By: #### A LLBG ####[facility] LABCLIA [id number] [address] [place] [address] [place] 2 Liters/min Normal [facility] Comment on above: Order Comment: Speci men Type: ARTERIAL BLOOD SPECIMENOrdering Facility: [facility] Address: [address] [place] [address] Performed By: #### A LLBG ####[facility] LABCLIA [id number] [address] [address] [place] Methemoglobin (Bld) [Mass fraction] 0.9 % Normal 0.0-1.5 [facility] Comment on above: Order Comment: Speci men Type: ARTERIAL BLOOD SPECIMENOrdering Facility: [facility] Address: [address] [place], [place] [address] Performed By: #### A LLBG ####[facility] LABCLIA [id number] [place] [id number] [place] O2 THERAPY NC = Nasal Cannula Normal [facility] Comment on above: Order Comment: Speci men Type: ARTERIAL BLOOD SPECIMENOrdering Facility: [facility] Address: [address] [place], [place] [address] Performed By: #### A LLBG ####[facility] LABCLIA [id number] [address] [address] [place] Oxygen (Bld) [Partial pressure] 152 mm Hg High 85-95 [facility] Comment on above: Order Comment: Speci men Type: ARTERIAL BLOOD SPECIMENOrdering Facility: [facility] Address: [address] [place] [address] Performed By: #### A LLBG ####[facility] LABCLIA [id number] [address] [address] [place] Oxygen adjusted to patient's actual temperature (Bld) [Partial pressure] 149 mmHg High 85-95 [facility] Comment on above: Order Comment: Speci men Type: ARTERIAL BLOOD SPECIMENOrdering Facility: [facility] Address: [address] [place] [address] Performed By: #### A LLBG ####[facility] LABCLIA [id number] [place] [address] [place] Oxyhemoglobin (BldA) [Mass fraction] 97 % Normal 95-98 [facility] Comment on above: Order Comment: Speci men Type: ARTERIAL BLOOD SPECIMENOrdering Facility: [facility] Address: [address] [place] [address] Performed By: #### A LLBG ####[facility] LABCLIA [id number] [place] [address] [place] pH (Bld) 7.37 [pH] Normal 7.35-7.45 [facility] Comment on above: Order Comment: Speci men Type: ARTERIAL BLOOD SPECIMENOrdering Facility: [facility] Address: [address] [place] [address] Performed By: #### A LLBG ####[facility] LABIA [id number] [place] [address] [place] pH adjusted to patient's actual temperature (Bld) 7.38 Normal 7.35-7.45 [facility] Comment on above: Order Comment: Speci men Type: ARTERIAL BLOOD SPECIMENOrdering Facility: [facility] Address: [address] [place] [address] Performed By: #### A LLBG ####[facility] LABCLIA [id number] [place] [id number] [place] Potassium [Moles/Vol] 5.2 mmol/L High 3.5-5.0 [facility] Comment on above: Order Comment: Speci men Type: ARTERIAL BLOOD SPECIMENOrdering Facility: [facility] Address: [address] [place] [address] Performed By: #### A LLBG ####[facility] LABIA [id number] [address] [address] [place] Sodium [Moles/Vol] 128 mmol/L Low 136-144 [facility] Comment on above: Order Comment: Speci men Type: ARTERIAL BLOOD SPECIMENOrdering Facility: [facility] Address: [address] [place] [address] Performed By: #### A LLBG ####[facility] LABCLIA [id number] [place] [address] [place] Base deficit (BldA) [Moles/Vol] mmol/L Normal -2-0 [facility] Comment on above: Order Comment: Speci men Type: ARTERIAL BLOOD SPECIMENOrdering Facility: [facility] Address: [address] [place] [address] Performed By: #### A LLBG ####[facility] LABCLIA [id number] [place] [address] [place] Body temperature 97.52 [degF] Normal [facility] Comment on above: Order Comment: Speci men Type: ARTERIAL BLOOD SPECIMENOrdering Facility: [facility] Address: [address] [place] [address] Performed By: #### A LLBG ####[facility] LABCLIA [id number] [place] [address] [place] Calcium.ionized (Bld) [Mass/Vol] 1.07 mmol/L Low 1.08-1.30 [facility] Comment on above: Order Comment: Speci men Type: ARTERIAL BLOOD SPECIMENOrdering Facility: [facility] Address: [address] [place], [place] [id number] Performed By: #### A LLBG ####[facility] LABCLIA [id number] [place] [id number] [place] Calcium.ionized adjusted to pH 7.4 (BldA) [Moles/Vol] 1.06 mmol/L Low 1.08-1.30 [facility] Comment on above: Order Comment: Speci men Type: ARTERIAL BLOOD SPECIMENOrdering Facility: [facility] Address: [address] [place] [address] Performed By: #### A LLBG ####[facility] LABCLIA [id number] [place] [address] [place] Carboxyhemoglobin (BldA) [Mass fraction] 0.4 % Normal 0.0-2.0 [facility] Comment on above: Order Comment: Speci men Type: ARTERIAL BLOOD SPECIMENOrdering Facility: [facility] Address: [address] [place] [address] Result Comment: Carb oxyhemoglobin Reference Range for Smokers: 2.0-8.0% Performed By: #### A LLBG ####[facility] LABCLIA [id number] [place] [address] [place] CO2 (Bld) [Partial pressure] 44 mm Hg Normal 36-46 [facility] Comment on above: Order Comment: Speci men Type: ARTERIAL BLOOD SPECIMENOrdering Facility: [facility] Address: [address] [place] [address] Performed By: #### A LLBG ####[facility] LABCLIA [id number] [place] [address] [place] CO2 adjusted to patient's actual temperature (Bld) [Partial pressure] 42 mmHg Normal 36-46 [facility] Comment on above: Order Comment: Speci men Type: ARTERIAL BLOOD SPECIMENOrdering Facility: [facility] Address: [address] [place] [address] Performed By: #### A LLBG ####[facility] LABCLIA [id number] [place] [address] [place] Glucose [Mass/Vol] 142 mg/dL High 60-105 [facility] Comment on above: Order Comment: Speci men Type: ARTERIAL BLOOD SPECIMENOrdering Facility: [facility] Address: [address] [place] [address] Performed By: #### A LLBG ####[facility] LABCLIA [id number] [place] [address] [place] HCO3 (Bld) [Moles/Vol] 25 mmol/L Normal 22-26 [facility] Comment on above: Order Comment: Speci men Type: ARTERIAL BLOOD SPECIMENOrdering Facility: [facility] Address: [address] [place] [address] Performed By: #### A LLBG ####[facility] LABCLIA [id number] [place] [address] [place] Hematocrit (Bld) [Volume fraction] 33.9 % Low 39.0-51.0 [facility] Comment on above: Order Comment: Speci men Type: ARTERIAL BLOOD SPECIMENOrdering Facility: [facility] Address: [address] [place] [address] Performed By: #### A LLBG ####[facility] LABCLIA [id number] [place] [address] [place] Hemoglobin (Bld) [Mass/Vol] 11.0 g/dL Low 13.0-17.0 [facility] Comment on above: Order Comment: Speci men Type: ARTERIAL BLOOD SPECIMENOrdering Facility: [facility] Address: [address] [place] [address] Performed By: #### A LLBG ####[facility] LABCLIA [id number] [place] [address] [place] Lactate [Moles/Vol] 0.9 mmol/L Normal 0.5-2.2 [facility] Comment on above: Order Comment: Speci men Type: ARTERIAL BLOOD SPECIMENOrdering Facility: [facility] Address: [address] [place] [address] Performed By: #### A LLBG ####[facility] LABCLIA [id number] [place] [address] [place] 1 Liters/min Normal [facility] Comment on above: Order Comment: Speci men Type: ARTERIAL BLOOD SPECIMENOrdering Facility: [facility] Address: [address] [place] [address] Performed By: #### A LLBG ####[facility] LABCLIA [id number] [address] [place] [address] [place] Methemoglobin (Bld) [Mass fraction] 0.5 % Normal 0.0-1.5 [facility] Comment on above: Order Comment: Speci men Type: ARTERIAL BLOOD SPECIMENOrdering Facility: [facility] Address: [address] [place] [address] Performed By: #### A LLBG ####[facility] LABCLIA [id number] [address] [address] [place] O2 THERAPY NC = Nasal Cannula Normal [facility] Comment on above: Order Comment: Speci men Type: ARTERIAL BLOOD SPECIMENOrdering Facility: [facility] Address: [address] [place] [address] Performed By: #### A LLBG ####[facility] LABCLIA [id number] [address] [place] [address] [place] Oxygen (Bld) [Partial pressure] 131 mm Hg High 85-95 [facility] Comment on above: Order Comment: Speci men Type: ARTERIAL BLOOD SPECIMENOrdering Facility: [facility] Address: [address] [place] [address] Performed By: #### A LLBG ####[facility] LABCLIA [id number] [address] [place] [address] [place] Oxygen adjusted to patient's actual temperature (Bld) [Partial pressure] 127 mmHg High 85-95 [facility] Comment on above: Order Comment: Speci men Type: ARTERIAL BLOOD SPECIMENOrdering Facility: [facility] Address: [address] [place] [address] Performed By: #### A LLBG ####[facility] LABCLIA [id number] [address] [place] [address] [place] Oxyhemoglobin (BldA) [Mass fraction] 96 % Normal 95-98 [facility] Comment on above: Order Comment: Speci men Type: ARTERIAL BLOOD SPECIMENOrdering Facility: [facility] Address: [address] [place] [address] Performed By: #### A LLBG ####[facility] LABCLIA [id number] [place] [address] [place] pH (Bld) 7.37 [pH] Normal 7.35-7.45 [facility] Comment on above: Order Comment: Speci men Type: ARTERIAL BLOOD SPECIMENOrdering Facility: [facility] Address: [address] [place] [address] Performed By: #### A LLBG ####[facility] LABCLIA [id number] [place] [address] [place] pH adjusted to patient's actual temperature (Bld) 7.38 Normal 7.35-7.45 [facility] Comment on above: Order Comment: Speci men Type: ARTERIAL BLOOD SPECIMENOrdering Facility: [facility] Address: [address] [place] [address] Performed By: #### A LLBG ####[facility] LABCLIA [id number] [place] [address] [place] Potassium [Moles/Vol] 5.4 mmol/L High 3.5-5.0 [facility] Comment on above: Order Comment: Speci men Type: ARTERIAL BLOOD SPECIMENOrdering Facility: [facility] Address: [address] [place] [address] Performed By: #### A LLBG ####[facility] LABCLIA [id number] [place] [address] [place] ARTERIAL BLOOD GASES WITH IO NIZED MAGNESIUMon 11-26-2024 Base excess Calc (Bld) [Moles/Vol] 6 mmol/L High 0-2 [facility] Comment on above: Order Comment: Speci men Type: ARTERIAL BLOOD SPECIMENOrdering Facility: [facility] Address: [address] [place] [address] Performed By: #### A LLMG ####[facility] [id number] [place] [address] [place] Calcium.ionized (Bld) [Mass/Vol] 1.09 mmol/L Normal 1.08-1.30 [facility] Comment on above: Order Comment: Speci men Type: ARTERIAL BLOOD SPECIMENOrdering Facility: [facility] Address: [address] [place] [address] Performed By: #### A LLMG ####[facility] [id number] [place] [address] [place] Calcium.ionized adjusted to pH 7.4 (BldA) [Moles/Vol] 1.12 mmol/L Normal 1.08-1.30 [facility] Comment on above: Order Comment: Speci men Type: ARTERIAL BLOOD SPECIMENOrdering Facility: [facility] Address: [address] [place] [address] Performed By: #### A LLMG ####[facility] [id number] [place] [address] [place] Carboxyhemoglobin (BldA) [Mass fraction] 0.0 % Normal 0.0-2.0 [facility] Comment on above: Order Comment: Speci men Type: ARTERIAL BLOOD SPECIMENOrdering Facility: [facility] Address: [address] [place] [address] Result Comment: Carb oxyhemoglobin Reference Range for Smokers: 2.0-8.0% Performed By: #### A LLMG ####[facility] [id number] [place] [address] [place] CO2 (Bld) [Partial pressure] 43 mm Hg Normal 36-46 [facility] Comment on above: Order Comment: Speci men Type: ARTERIAL BLOOD SPECIMENOrdering Facility: [facility] Address: [address] [place] [address] Performed By: #### A LLMG ####[facility] LABCLIA [id number] [place] [address] [place] CO2 adjusted to patient's actual temperature (Bld) [Partial pressure] 43 mmHg Normal 36-46 [facility] Comment on above: Order Comment: Speci men Type: ARTERIAL BLOOD SPECIMENOrdering Facility: [facility] Address: [address] [place] [address] Performed By: #### A LLMG ####[facility] LABCLIA [id number] [place] [address] [place] Glucose [Mass/Vol] 83 mg/dL Normal 60-105 [facility] Comment on above: Order Comment: Speci men Type: ARTERIAL BLOOD SPECIMENOrdering Facility: [facility] Address: [address] [place] [address] Performed By: #### A LLMG ####[facility] LABCLIA [id number] [place] [address] [place] HCO3 (Bld) [Moles/Vol] 30 mmol/L High 22-26 [facility] Comment on above: Order Comment: Speci men Type: ARTERIAL BLOOD SPECIMENOrdering Facility: [facility] Address: [address] [place] [address] Performed By: #### A LLMG ####[facility] LABCLIA [id number] [place] [id number] [place] Hematocrit (Bld) [Volume fraction] 32.9 % Low 39.0-51.0 [facility] Comment on above: Order Comment: Speci men Type: ARTERIAL BLOOD SPECIMENOrdering Facility: [facility] Address: [address] [place] [address] Performed By: #### A LLMG ####[facility] LABCLIA [id number] [place] [id number] [place] Hemoglobin (Bld) [Mass/Vol] 10.7 g/dL Low 13.0-17.0 [facility] Comment on above: Order Comment: Speci men Type: ARTERIAL BLOOD SPECIMENOrdering Facility: [facility] Address: [address] [place] [address] Performed By: #### A LLMG ####[facility] LABCLIA [id number] [place] [address] [place] Lactate [Moles/Vol] 0.6 mmol/L Normal 0.5-2.2 [facility] Comment on above: Order Comment: Speci men Type: ARTERIAL BLOOD SPECIMENOrdering Facility: [facility] Address: [address] [place] [address] Performed By: #### A LLMG ####[facility] LABIA [id number] [place] [address] [place] Magnesium [Moles/Vol] 0.59 mmol/L Normal 0.45-0.60 [facility] Comment on above: Order Comment: Speci men Type: ARTERIAL BLOOD SPECIMENOrdering Facility: [facility] Address: [address] [place] [address] Performed By: #### A LLMG ####[facility] LABCLIA [id number] [place] [id number] [place] Methemoglobin (Bld) [Mass fraction] 0.5 % Normal 0.0-1.5 [facility] Comment on above: Order Comment: Speci men Type: ARTERIAL BLOOD SPECIMENOrdering Facility: [facility] Address: [address] [place] [address] Performed By: #### A LLMG ####[facility] LABIA [id number] [place] [id number] [place] Oxygen (Bld) [Partial pressure] 132 mm Hg High 85-95 [facility] Comment on above: Order Comment: Speci men Type: ARTERIAL BLOOD SPECIMENOrdering Facility: [facility] Address: [address] [place] [address] Performed By: #### A LLMG ####[facility] LABCLIA [id number] [place] [id number] [place] Oxygen adjusted to patient's actual temperature (Bld) [Partial pressure] 132 mmHg High 85-95 [facility] Comment on above: Order Comment: Speci men Type: ARTERIAL BLOOD SPECIMENOrdering Facility: [facility] Address: [address] [place] [address] Performed By: #### A LLMG ####[facility] LABCLIA [id number] [place] [id number] [place] Oxyhemoglobin (BldA) [Mass fraction] 97 % Normal 95-98 [facility] Comment on above: Order Comment: Speci men Type: ARTERIAL BLOOD SPECIMENOrdering Facility: [facility] Address: [address] [place] [address] Performed By: #### A LLMG ####[facility] LABIA [id number] [place] [id number] [place] pH (Bld) 7.46 [pH] High 7.35-7.45 [facility] Comment on above: Order Comment: Speci men Type: ARTERIAL BLOOD SPECIMENOrdering Facility: [facility] Address: [address] [place], [place] [address] Performed By: #### A LLMG ####[facility] LABCLIA [id number] [address] [place] [address] [place] pH adjusted to patient's actual temperature (Bld) 7.46 High 7.35-7.45 [facility] Comment on above: Order Comment: Speci men Type: ARTERIAL BLOOD SPECIMENOrdering Facility: [facility] Address: [address] [place], [place] [address] Performed By: #### A LLMG ####[facility] LABCLIA [id number] [place] [id number] [place] Potassium [Moles/Vol] 3.7 mmol/L Normal 3.5-5.0 [facility] Comment on above: Order Comment: Speci men Type: ARTERIAL BLOOD SPECIMENOrdering Facility: [facility] Address: [address] [place] [address] Performed By: #### A LLMG ####[facility] LABCLIA [id number] [place] [address] [place] Sodium [Moles/Vol] 133 mmol/L Low 136-144 [facility] Comment on above: Order Comment: Speci men Type: ARTERIAL BLOOD SPECIMENOrdering Facility: [facility] Address: [address] [place] [address] Performed By: #### A LLMG ####[facility] LABCLIA [id number] [place] [address] [place] BRIEF OP NOTon 11-26-2024 BRIEF OP NOT Normal [facility] BUN p dialysis SerPl-mCncon 11-26-2024 Urea nitrogen post dialysis [Mass/Vol] 30 mg/dL High 9-24 [facility] Comment on above: Order Comment: Speci men Type: BLOOD SPECIMENOrdering Facility: [facility] Address: [address] [place] [address] Performed By: #### 1 1064-3 ####[facility] LABIA [id number] [place] [address] [place] BUN pre dial SerPl-mCncon Urea nitrogen pre dialysis [Mass/Vol] 96 mg/dL High 9-24 [facility] Comment on above: Order Comment: Speci men Type: BLOOD SPECIMENOrdering Facility: [facility] Address: [address] [place] [address] Performed By: #### 1 1065-0 ####[facility] LABCLIA [id number] [address] [id number] [address] [place] Basic Metabolic Profile (BMP )on 11-26-2024 BUN Normal 4-19 [facility] Comment on above: Result Comment: Canc elled via OM: MD Ordered Performed By: #### L 500.2500, L100.0100 ####[facility] [address] [place], [address] BUN/CRE Normal 10-20 [facility] Comment on above: Result Comment: Canc elled via OM: MD Ordered Performed By: #### L 500.2500, L100.0100 ####[facility] [address] [place], [address] Calcium Normal 7.6-11.0 [facility] Comment on above: Result Comment: Canc elled via OM: MD Ordered Performed By: #### L 500.2500, L100.0100 ####[facility] [address] [place], [address] CL Normal 98-108 [facility] Comment on above: Result Comment: Canc elled via OM: MD Ordered Performed By: #### L 500.2500, L100.0100 ####[facility] [address] [place], [address] CO2 Normal 21.0-32.0 [facility] Comment on above: Result Comment: Canc elled via OM: MD Ordered Performed By: #### L 500.2500, L100.0100 ####[facility] [address] [place], [address] CREAT,SERUM Normal 0.70-1.20 [facility] Comment on above: Result Comment: Canc elled via OM: MD Ordered Performed By: #### L 500.2500, L100.0100 ####[facility] [address] [place], [address] eGFR Normal >60 [facility] Comment on above: Result Comment: Canc elled via OM: MD Ordered Performed By: #### L 500.2500, L100.0100 ####[facility] [address] [place], [address] GAP Normal 5-15 [facility] Comment on above: Result Comment: Canc elled via OM: MD Ordered Performed By: #### L 500.2500, L100.0100 ####[facility] [address] [place], [address] GLU Normal 70-99 [facility] Comment on above: Result Comment: Canc elled via OM: MD Ordered Performed By: #### L 500.2500, L100.0100 ####[facility] [address] [place], [address] Potassium Normal 3.3-5.1 [facility] Comment on above: Result Comment: Canc elled via OM: MD Ordered Performed By: #### L 500.2500, L100.0100 ####[facility] [address] [place], [address] Basic Metabolic Profile (BMP) Normal 133-145 [facility] Comment on above: Result Comment: Canc elled via OM: MD Ordered Performed By: #### L 500.2500, L100.0100 ####[facility] [address] [place], [address] CASE MGT INIT ASSESon 2024 CASE MGT INIT ASSES Normal [facility] CBC W/Diff, Automatedon 07-0 Absolute Neut Normal 2.0-7.7 [facility] Comment on above: Result Comment: Canc elled via OM: MD Ordered Performed By: #### L 500.2500, L100.0100 ####[facility] [address] [place], [address] HCT Normal 40-54 [facility] Comment on above: Result Comment: Canc elled via OM: MD Ordered Performed By: #### L 500.2500, L100.0100 ####[facility] [address] [place], [address] HGB Normal 13.0-16.5 [facility] Comment on above: Result Comment: Canc elled via OM: MD Ordered Performed By: #### L 500.2500, L100.0100 ####[facility] [address] [place], [address] MCH Normal 27.0-32.0 [facility] Comment on above: Result Comment: Canc elled via OM: MD Ordered Performed By: #### L 500.2500, L100.0100 ####[facility] [address] [place], [address] MCHC Normal 32-36 [facility] Comment on above: Result Comment: Canc elled via OM: MD Ordered Performed By: #### L 500.2500, L100.0100 ####[facility] [address] [place], [address] MCV Normal 80-94 [facility] Comment on above: Result Comment: Canc elled via OM: MD Ordered Performed By: #### L 500.2500, L100.0100 ####[facility] [address] [place], [address] NEUT% Normal 47-70 [facility] Comment on above: Result Comment: Canc elled via OM: MD Ordered Performed By: #### L 500.2500, L100.0100 ####[facility] [address] [place], [address] PLT Normal 150-450 [facility] Comment on above: Result Comment: Canc elled via OM: MD Ordered Performed By: #### L 500.2500, L100.0100 ####[facility] [address] [place], [address] RBC Normal 4.6-6.2 [facility] Comment on above: Result Comment: Canc elled via OM: MD Ordered Performed By: #### L 500.2500, L100.0100 ####[facility] [address] [place], [address] RDW CV Normal 11.6-14.6 [facility] Comment on above: Result Comment: Canc elled via OM: MD Ordered Performed By: #### L 500.2500, L100.0100 ####[facility] [address] [place], [address] RDW SD Normal 35.1-43.9 [facility] Comment on above: Result Comment: Canc elled via OM: MD Ordered Performed By: #### L 500.2500, L100.0100 ####[facility] [address] [place], [address] WBC Normal 4.4-11.0 [facility] Comment on above: Result Comment: Canc elled via OM: MD Ordered Performed By: #### L 500.2500, L100.0100 ####[facility] [address] [place], [address] CBC panel Auto (Bld)on 11-26 Erythrocyte distribution width (RBC) [Ratio] 15.9 % High 11.5-15.0 [facility] Comment on above: Order Comment: Speci men Type: BLOOD SPECIMENOrdering Facility: [facility] Address: [address] [place] [address] Performed By: #### 5 8410-2 ####[facility] LABCLIA [id number] [address] [address] [place] Hematocrit (Bld) [Volume fraction] 33.8 % Low 39.0-51.0 [facility] Comment on above: Order Comment: Speci men Type: BLOOD SPECIMENOrdering Facility: [facility] Address: [address] [place] [address] Performed By: #### 5 8410-2 ####[facility] LABIA [id number] [place] [address] [place] Hemoglobin (Bld) [Mass/Vol] 10.7 g/dL Low 13.0-17.0 [facility] Comment on above: Order Comment: Speci men Type: BLOOD SPECIMENOrdering Facility: [facility] Address: [address] [place] [address] Performed By: #### 5 8410-2 ####[facility] LABIA [id number] [place] [address] [place] MCH (RBC) [Entitic mass] 28.2 pg Normal 26.0-34.0 [facility] Comment on above: Order Comment: Speci men Type: BLOOD SPECIMENOrdering Facility: [facility] Address: [address] [place] [address] Performed By: #### 5 8410-2 ####[facility] LABIA [id number] [place] [address] [place] MCHC (RBC) [Mass/Vol] 31.7 g/dL Normal 30.5-36.0 [facility] Comment on above: Order Comment: Speci men Type: BLOOD SPECIMENOrdering Facility: [facility] Address: [address] [place] [address] Performed By: #### 5 8410-2 ####[facility] LABIA [id number] [place] [address] [place] MCV (RBC) [Entitic vol] 88.9 fL Normal 80.0-100.0 [facility] Comment on above: Order Comment: Speci men Type: BLOOD SPECIMENOrdering Facility: [facility] Address: [address] [place] [address] Performed By: #### 5 8410-2 ####[facility] LABIA [id number] [place] [address] [place] Nucleated RBC (Bld) [#/Vol] 10*3/uL Normal <0.01 [facility] Comment on above: Order Comment: Speci men Type: BLOOD SPECIMENOrdering Facility: [facility] Address: [address] [place] [address] Performed By: #### 5 8410-2 ####[facility] LABCLIA [id number] [place] [address] [place] Platelet mean volume (Bld) [Entitic vol] 12.2 fL Normal 9.0-12.7 [facility] Comment on above: Order Comment: Speci men Type: BLOOD SPECIMENOrdering Facility: [facility] Address: [address] [place] [address] Performed By: #### 5 8410-2 ####[facility] LABCLIA [id number] [place] [address] [place] Platelets (Bld) [#/Vol] 133 10*3/uL Low 150-400 [facility] Comment on above: Order Comment: Speci men Type: BLOOD SPECIMENOrdering Facility: [facility] Address: [address] [place] [address] Performed By: #### 5 8410-2 ####[facility] LABIA [id number] [place] [address] [place] RBC (Bld) [#/Vol] 3.80 10*6/uL Low 4.20-6.00 [facility] Comment on above: Order Comment: Speci men Type: BLOOD SPECIMENOrdering Facility: [facility] Address: [address] [place] [address] Performed By: #### 5 8410-2 ####[facility] LABIA [id number] [place] [address] [place] WBC (Bld) [#/Vol] 8.99 10*3/uL Normal 3.70-11.00 [facility] Comment on above: Order Comment: Speci men Type: BLOOD SPECIMENOrdering Facility: [facility] Address: [address] [place] [address] Performed By: #### 5 8410-2 ####[facility] LABCLIA [id number] [place] [address] [place] CONSULT PROGon 11-26-2024 CONSULT PROG Normal [facility] Comp Metab 2000 Pnl SerPlon 11-26-2024 Sodium [Moles/Vol] 129 mmol/L Low 136-144 [facility] Comment on above: Order Comment: Speci men Type: BLOOD SPECIMENOrdering Facility: [facility] Address: [address] [place] [address] Performed By: #### 2 4323-8, 30941-8 ####[facility] LABCLIA [id number] [place] [address] [place] Order Comment: Speci men Type: ARTERIAL BLOOD SPECIMENOrdering Facility: [facility] Address: [address] [place] [address] Performed By: #### A LLBG ####[facility] LABCLIA [id number] [place] [address] [place] Comprehensive metabolic 2000 panelon 11-26-2024 Albumin [Mass/Vol] 3.4 g/dL Low 3.9-4.9 [facility] Comment on above: Order Comment: Speci men Type: BLOOD SPECIMENOrdering Facility: [facility] Address: [address] [place] [address] Performed By: #### 2 4323-8 ####[facility] LABCLIA [id number] [place] [id number] [place] ALP [Catalytic activity/Vol] 64 U/L Normal 38-113 [facility] Comment on above: Order Comment: Speci men Type: BLOOD SPECIMENOrdering Facility: [facility] Address: [address] [place], [place] [address] Performed By: #### 2 4323-8 ####[facility] LABCLIA [id number] [facility] C[facility]ERK [id number], [place] [address] [place] ALT [Catalytic activity/Vol] 34 U/L Normal 10-54 [facility] Comment on above: Order Comment: Speci men Type: BLOOD SPECIMENOrdering Facility: [facility] Address: [address] [place] [address] Performed By: #### 2 4323-8 ####[facility] LABCLIA [id number] [facility] [address] [place] [address] [place] Anion gap [Moles/Vol] 19 mmol/L High 8-15 [facility] Comment on above: Order Comment: Speci men Type: BLOOD SPECIMENOrdering Facility: [facility] Address: [address] [place] [address] Performed By: #### 2 4323-8 ####[facility] LABCLIA [id number] [address], [place] [address] [place] AST [Catalytic activity/Vol] 21 U/L Normal 14-40 [facility] Comment on above: Order Comment: Speci men Type: BLOOD SPECIMENOrdering Facility: [facility] Address: [address] [place], [place] [address] Performed By: #### 2 4323-8 ####[facility] LABCLIA [id number] [facility] [place] [id number] [place] Bilirubin [Mass/Vol] 0.3 mg/dL Normal 0.2-1.3 [facility] Comment on above: Order Comment: Speci men Type: BLOOD SPECIMENOrdering Facility: [facility] Address: [address] [place], [place] [address] Performed By: #### 2 4323-8 ####[facility] LABCLIA [id number] [facility] [address] [place] [address] [place] Calcium [Mass/Vol] 8.7 mg/dL Normal 8.5-10.2 [facility] Comment on above: Order Comment: Speci men Type: BLOOD SPECIMENOrdering Facility: [facility] Address: [address] [place] [address] Performed By: #### 2 4323-8 ####[facility] LABCLIA [id number] [address] [address] [place] Chloride [Moles/Vol] 89 mmol/L Low 98-107 [facility] Comment on above: Order Comment: Speci men Type: BLOOD SPECIMENOrdering Facility: [facility] Address: [address] [place] [address] Performed By: #### 2 4323-8 ####[facility] LABCLIA [id number] [place] [address] [place] CO2 [Moles/Vol] 22 mmol/L Normal 22-30 [facility] Comment on above: Order Comment: Speci men Type: BLOOD SPECIMENOrdering Facility: [facility] Address: [address] [place] [address] Performed By: #### 2 4323-8 ####[facility] LABCLIA [id number] [place] [address] [place] Creatinine [Mass/Vol] 7.11 mg/dL High 0.73-1.22 [facility] Comment on above: Order Comment: Speci men Type: BLOOD SPECIMENOrdering Facility: [facility] Address: [address] [place] [address] Performed By: #### 2 4323-8 ####[facility] LABCLIA [id number] [place] [id number] [place] Creatinine and Glomerular filtration rate.predicted panel (S/P/Bld) 7 mL/min/1.73m??? Low >=60 [facility] Comment on above: Order Comment: Speci men Type: BLOOD SPECIMENOrdering Facility: [facility] Address: [address] [place] [address] Result Comment: Tessa mated Glomerular Filtration Rate [...] actual GFR. Performed By: #### 2 4323-8 ####[facility] LABIA [id number] [place] [id number] [place] Glucose [Mass/Vol] 55 mg/dL Low 74-99 [facility] Comment on above: Order Comment: Lesvia aleman Type: BLOOD SPECIMENOrdering Facility: [facility] Address: [address] [place] [address] Result Comment: The [place] [employer] (ADA) provides guidance for cutoff [...] Standards of Medical Care in Diabetes 2016, [place] [employer]. Diabetes Care. 2016.39(Suppl 1). Performed By: #### 2 4323-8 ####[facility] LABIA [id number] [address] [address] [place] Potassium [Moles/Vol] 5.3 mmol/L High 3.7-5.1 [facility] Comment on above: Order Comment: Lesvia aleman Type: BLOOD SPECIMENOrdering Facility: [facility] Address: [address] [place] [id number] Performed By: #### 2 4323-8 ####[facility] LABIA [id number] [address] [address] [place] Protein [Mass/Vol] 6.3 g/dL Normal 6.3-8.0 [facility] Comment on above: Order Comment: Speci men Type: BLOOD SPECIMENOrdering Facility: [facility] Address: [address] [place] [id number] Performed By: #### 2 4323-8 ####[facility] LABCLIA [id number] [facility]KA[facility]OSPITALK [id number], [facility]95 [place] Sodium [Moles/Vol] 130 mmol/L Low 136-144 [facility] Comment on above: Order Comment: Speci men Type: BLOOD SPECIMENOrdering Facility: [facility] Address: [address] [place] [address] Performed By: #### 2 4323-8 ####[facility] LABCLIA [id number] [facility] [address], [facility]95 [place] Urea nitrogen [Mass/Vol] 95 mg/dL High 9-24 [facility] Comment on above: Order Comment: Speci men Type: BLOOD SPECIMENOrdering Facility: [facility] Address: [address] [place] [address] Performed By: #### 2 4323-8 ####[facility] LABCLIA [id number] [facility] [address], [facility]95 [place] Albumin [Mass/Vol] 3.4 g/dL Low 3.9-4.9 [facility] Comment on above: Order Comment: Speci men Type: BLOOD SPECIMENOrdering Facility: [facility] Address: [address] [place] [address] Performed By: #### 2 4323-8, 66999-8 ####[facility] LABCLIA [id number] [facility] [address], [facility]95 [place] ALP [Catalytic activity/Vol] 63 U/L Normal 38-113 [facility] Comment on above: Order Comment: Speci men Type: BLOOD SPECIMENOrdering Facility: [facility] Address: [address] [place] [address] Performed By: #### 2 4323-8, ####[facility] LABCLIA [id number] [facility] CENTERK [id number], [place] [address] [place] ALT [Catalytic activity/Vol] 36 U/L Normal 10-54 [facility] Comment on above: Order Comment: Speci men Type: BLOOD SPECIMENOrdering Facility: [facility] Address: [address] [place] [address] Performed By: #### 2 432-8, ####[facility] LABCLIA [id number] [facility] [address] [place] [address] [place] Anion gap [Moles/Vol] 19 mmol/L High 8-15 [facility] Comment on above: Order Comment: Speci men Type: BLOOD SPECIMENOrdering Facility: [facility] Address: [address] [place] [address] Performed By: #### 2 432-8, ####[facility] LABCLIA [id number] [facility] [address] [place] [address] [place] AST [Catalytic activity/Vol] 20 U/L Normal 14-40 [facility] Comment on above: Order Comment: Speci men Type: BLOOD SPECIMENOrdering Facility: [facility] Address: [address] [place], [place] [address] Performed By: #### 2 4328, ####[facility] LABCLIA [id number] [facility] [address] [place] [address] [place] Bilirubin [Mass/Vol] 0.2 mg/dL Normal 0.2-1.3 [facility] Comment on above: Order Comment: Speci men Type: BLOOD SPECIMENOrdering Facility: [facility] Address: [address] [place], [place] [address] Performed By: #### 2 4323-8, ####[facility] LABCLIA [id number] [facility] [address] [place] Calcium [Mass/Vol] 8.9 mg/dL Normal 8.5-10.2 [facility] Comment on above: Order Comment: Speci men Type: BLOOD SPECIMENOrdering Facility: [facility] Address: [address] [place], [place] [address] Performed By: #### 2 4323-8, ####[facility] LABCLIA [id number] [place] [id number] [place] Chloride [Moles/Vol] 88 mmol/L Low 98-107 [facility] Comment on above: Order Comment: Speci men Type: BLOOD SPECIMENOrdering Facility: [facility] Address: [address] [place] [address] Performed By: #### 2 4323-8, ####[facility] LABCLIA [id number] [place] [id number] [place] CO2 [Moles/Vol] 22 mmol/L Normal 22-30 [facility] Comment on above: Order Comment: Speci men Type: BLOOD SPECIMENOrdering Facility: [facility] Address: [address] [place] [address] Performed By: #### 2 4323-8, ####[facility] LABCLIA [id number] [place] [id number] [place] Creatinine [Mass/Vol] 7.11 mg/dL High 0.73-1.22 [facility] Comment on above: Order Comment: Speci men Type: BLOOD SPECIMENOrdering Facility: [facility] Address: [address] [place] [address] Performed By: #### 2 4323-8, ####[facility] LABCLIA [id number] [place] [id number] [place] Creatinine and Glomerular filtration rate.predicted panel (S/P/Bld) 7 mL/min/1.73m??? Low >=60 [facility] Comment on above: Order Comment: Lesvia aleman Type: BLOOD SPECIMENOrdering Facility: [facility] Address: [address] [place] [address] Result Comment: Tessa mated Glomerular Filtration Rate [...] actual GFR. Performed By: #### 2 4323-8, 66162-7 ####[facility] LABIA [id number] [place] [address] [place] Glucose [Mass/Vol] 133 mg/dL High 74-99 [facility] Comment on above: Order Comment: Lesvia aleman Type: BLOOD SPECIMENOrdering Facility: [facility] Address: [address] [place] [address] Result Comment: The [place] [employer] (ADA) provides guidance for cutoff [...] Standards of Medical Care in Diabetes 2016, [place] [employer]. Diabetes Care. 2016.39(Suppl 1). Performed By: #### 2 4323-8, 95835-9 ####[facility] LABIA [id number] [place] [id number] [place] Potassium [Moles/Vol] 5.6 mmol/L High 3.7-5.1 [facility] Comment on above: Order Comment: Lesvia aleman Type: BLOOD SPECIMENOrdering Facility: [facility] Address: [address] [place], [place] [address] Performed By: #### 2 4323-8, ####[facility] LABIA [id number] [address] [address] [place] Protein [Mass/Vol] 6.3 g/dL Normal 6.3-8.0 [facility] Comment on above: Order Comment: Speci men Type: BLOOD SPECIMENOrdering Facility: [facility] Address: [address] [place], [place] [address] Performed By: #### 2 4323-8, ####[facility] LABIA [id number] [place] [id number] [place] Urea nitrogen [Mass/Vol] 94 mg/dL High 9-24 [facility] Comment on above: Order Comment: Speci men Type: BLOOD SPECIMENOrdering Facility: [facility] Address: [address] [place], [place] [address] Performed By: #### 2 4323-8, ####[facility] [id number] [place] [id number] [place] Magnesium SerPl-mCncon 11-26 Magnesium [Mass/Vol] 2.6 mg/dL High 1.7-2.3 [facility] Comment on above: Order Comment: Speci men Type: BLOOD SPECIMENOrdering Facility: [facility] Address: [address] [place], [place] [address] Performed By: #### 2 4323-8, ####[facility] LABIA [id number] [address] [address] [place] THERAPY NTon 11-26-2024 THERAPY NT Normal [facility] Urea nitrogen post dialysis [Mass/Vol]on 11-26-2024 UREA REDUCTION RATIO WITH BUNPR 69 % Normal [facility] Comment on above: Order Comment: Speci men Type: BLOOD SPECIMENOrdering Facility: [facility] Address: [address] [place] [address] Performed By: #### 1 1064-3 ####[facility] LABIA [id number] [place] [address] [place] XR CHEST 1V FRONTAL PORTon 0 11-26-2024 XR CHEST 1V FRONTAL PORT Normal [facility] ALLIED HEALTHon 11-25-2024 ALLIED HEALTH HNO ID: [id number] Author: ISRAEL MOODY Chaplain Service: Process Group Author Type: Embroidery Designer Type: Allied Health Filed: 11/25/2024 16:42 Note Text: The patient was anointed. Normal [facility] ARTERIAL BLOOD GASESon 11-25 Base excess Calc (Bld) [Moles/Vol] 1 mmol/L Normal 0-2 [facility] Comment on above: Order Comment: Speci men Type: ARTERIAL BLOOD SPECIMENOrdering Facility: [facility] Address: [address] [place] [address] Performed By: #### A LLBG ####[facility] LABIA [id number] [place] [address] [place] Body temperature 97.7 [degF] Normal [facility] Comment on above: Order Comment: Speci men Type: ARTERIAL BLOOD SPECIMENOrdering Facility: [facility] Address: [address] [place] [address] Performed By: #### A LLBG ####[facility] LABIA [id number] [place] [address] [place] Calcium.ionized (Bld) [Mass/Vol] 1.09 mmol/L Normal 1.08-1.30 [facility] Comment on above: Order Comment: Speci men Type: ARTERIAL BLOOD SPECIMENOrdering Facility: [facility] Address: [address] [place] [address] Performed By: #### A LLBG ####[facility] LABIA [id number] [place] [id number] [place] Calcium.ionized adjusted to pH 7.4 (BldA) [Moles/Vol] 1.08 mmol/L Normal 1.08-1.30 [facility] Comment on above: Order Comment: Speci men Type: ARTERIAL BLOOD SPECIMENOrdering Facility: [facility] Address: [address] [place] [address] Performed By: #### A LLBG ####[facility] LABCLIA [id number] [place] [address] [place] Carboxyhemoglobin (BldA) [Mass fraction] 0.3 % Normal 0.0-2.0 [facility] Comment on above: Order Comment: Speci men Type: ARTERIAL BLOOD SPECIMENOrdering Facility: [facility] Address: [address] [place] [address] Result Comment: Carb oxyhemoglobin Reference Range for Smokers: 2.0-8.0% Performed By: #### A LLBG ####[facility] LABCLIA [id number] [place] [address] [place] CO2 (Bld) [Partial pressure] 43 mm Hg Normal 36-46 [facility] Comment on above: Order Comment: Speci men Type: ARTERIAL BLOOD SPECIMENOrdering Facility: [facility] Address: [address] [place] [address] Performed By: #### A LLBG ####[facility] LABCLIA [id number] [place] [address] [place] CO2 adjusted to patient's actual temperature (Bld) [Partial pressure] 42 mmHg Normal 36-46 [facility] Comment on above: Order Comment: Speci men Type: ARTERIAL BLOOD SPECIMENOrdering Facility: [facility] Address: [address] [place] [address] Performed By: #### A LLBG ####[facility] LABCLIA [id number] [place] [address] [place] Glucose [Mass/Vol] 92 mg/dL Normal 60-105 [facility] [place] Comment on above: Order Comment: Speci men Type: ARTERIAL BLOOD SPECIMENOrdering Facility: [facility] Address: [address] [place] [address] Performed By: #### A LLBG ####[facility] LABCLIA [id number] [address] [address] [place] HCO3 (Bld) [Moles/Vol] 25 mmol/L Normal 22-26 [facility] Comment on above: Order Comment: Speci men Type: ARTERIAL BLOOD SPECIMENOrdering Facility: [facility] Address: [address] [place] [address] Performed By: #### A LLBG ####[facility] LABCLIA [id number] [place] [address] [place] Hematocrit (Bld) [Volume fraction] 32.9 % Low 39.0-51.0 [facility] Comment on above: Order Comment: Speci men Type: ARTERIAL BLOOD SPECIMENOrdering Facility: [facility] Address: [address] [place] [address] Performed By: #### A LLBG ####[facility] LABIA [id number] [place] [address] [place] Hemoglobin (Bld) [Mass/Vol] 10.6 g/dL Low 13.0-17.0 [facility] Comment on above: Order Comment: Speci men Type: ARTERIAL BLOOD SPECIMENOrdering Facility: [facility] Address: [address] [place] [address] Performed By: #### A LLBG ####[facility] LABCLIA [id number] [place] [id number] [place] Lactate [Moles/Vol] 1.0 mmol/L Normal 0.5-2.2 [facility] Comment on above: Order Comment: Speci men Type: ARTERIAL BLOOD SPECIMENOrdering Facility: [facility] Address: [address], [place] [address] Performed By: #### A LLBG ####[facility] LABCLIA [id number] [address] [place] [address] [place] LITERS 1 Liters/min Normal [facility] Comment on above: Order Comment: Speci men Type: ARTERIAL BLOOD SPECIMENOrdering Facility: [facility] Address: [address] [place] [address] Performed By: #### A LLBG ####[facility] LABCLIA [id number] [address] [place] [address] [place] Methemoglobin (Bld) [Mass fraction] 0.3 % Normal 0.0-1.5 [facility] Comment on above: Order Comment: Speci men Type: ARTERIAL BLOOD SPECIMENOrdering Facility: [facility] Address: [address] [place], [place] [address] Performed By: #### A LLBG ####[facility] LABCLIA [id number] [address] [address] [place] O2 THERAPY NC = Nasal Cannula Normal [facility] Comment on above: Order Comment: Speci men Type: ARTERIAL BLOOD SPECIMENOrdering Facility: [facility] Address: [address] [place], [place] [address] Performed By: #### A LLBG ####[facility] LABCLIA [id number] [address] [place] [address] [place] Oxygen (Bld) [Partial pressure] 147 mm Hg High 85-95 [facility] Comment on above: Order Comment: Speci men Type: ARTERIAL BLOOD SPECIMENOrdering Facility: [facility] Address: [address] [place] [address] Performed By: #### A LLBG ####[facility] LABCLIA [id number] [address] [place] [address] [place] Oxygen adjusted to patient's actual temperature (Bld) [Partial pressure] 144 mmHg High 85-95 [facility] Comment on above: Order Comment: Speci men Type: ARTERIAL BLOOD SPECIMENOrdering Facility: [facility] Address: [address] [place] [address] Performed By: #### A LLBG ####[facility] LABCLIA [id number] [place] [id number] [place] Oxyhemoglobin (BldA) [Mass fraction] 97 % Normal 95-98 [facility] Comment on above: Order Comment: Speci men Type: ARTERIAL BLOOD SPECIMENOrdering Facility: [facility] Address: [address] [place] [address] Performed By: #### A LLBG ####[facility] LABCLIA [id number] [place] [address] [place] pH (Bld) 7.39 [pH] Normal 7.35-7.45 [facility] Comment on above: Order Comment: Speci men Type: ARTERIAL BLOOD SPECIMENOrdering Facility: [facility] Address: [address] [place] [address] Performed By: #### A LLBG ####[facility] LABCLIA [id number] [place] [address] [place] pH adjusted to patient's actual temperature (Bld) 7.39 Normal 7.35-7.45 [facility] Comment on above: Order Comment: Speci men Type: ARTERIAL BLOOD SPECIMENOrdering Facility: [facility] Address: [address] [place] [address] Performed By: #### A LLBG ####[facility] LABCLIA [id number] [place] [id number] [place] Potassium [Moles/Vol] 5.3 mmol/L High 3.5-5.0 [facility] Comment on above: Order Comment: Speci men Type: ARTERIAL BLOOD SPECIMENOrdering Facility: [facility] Address: [address] [place] [address] Performed By: #### A LLBG ####[facility] LABCLIA [id number] [place] [id number] [place] Sodium [Moles/Vol] 129 mmol/L Low 136-144 [facility] Comment on above: Order Comment: Speci men Type: ARTERIAL BLOOD SPECIMENOrdering Facility: [facility] Address: [address] [place] [address] Performed By: #### A LLBG ####[facility] LABCLIA [id number] [place] [address] [place] Base excess Calc (Bld) [Moles/Vol] 1 mmol/L Normal 0-2 [facility] Comment on above: Order Comment: Speci men Type: ARTERIAL BLOOD SPECIMENOrdering Facility: [facility] Address: [address] [place] [address] Performed By: #### A LLBG ####[facility] LABIA [id number] [place] [address] [place] Body temperature 97.7 [degF] Normal [facility] Comment on above: Order Comment: Speci men Type: ARTERIAL BLOOD SPECIMENOrdering Facility: [facility] Address: [address] [place] [address] Performed By: #### A LLBG ####[facility] LABIA [id number] [place] [address] [place] Calcium.ionized (Bld) [Mass/Vol] 1.08 mmol/L Normal 1.08-1.30 [facility] Comment on above: Order Comment: Speci men Type: ARTERIAL BLOOD SPECIMENOrdering Facility: [facility] Address: [address] [place] [address] Performed By: #### A LLBG ####[facility] LABIA [id number] [place] [id number] [place] Calcium.ionized adjusted to pH 7.4 (BldA) [Moles/Vol] 1.07 mmol/L Low 1.08-1.30 [facility] Comment on above: Order Comment: Speci men Type: ARTERIAL BLOOD SPECIMENOrdering Facility: [facility] Address: [address] [place] [address] Performed By: #### A LLBG ####[facility] LABCLIA [id number] [address] [address] [place] Carboxyhemoglobin (BldA) [Mass fraction] 0.3 % Normal 0.0-2.0 [facility] Comment on above: Order Comment: Speci men Type: ARTERIAL BLOOD SPECIMENOrdering Facility: [facility] Address: [address] [place], [place] [address] Result Comment: Carb oxyhemoglobin Reference Range for Smokers: 2.0-8.0% Performed By: #### A LLBG ####[facility] LABCLIA [id number] [address] [address] [place] CO2 (Bld) [Partial pressure] 44 mm Hg Normal 36-46 [facility] Comment on above: Order Comment: Speci men Type: ARTERIAL BLOOD SPECIMENOrdering Facility: [facility] Address: [address] [place], [place] [address] Performed By: #### A LLBG ####[facility] LABCLIA [id number] [address] [address] [place] CO2 adjusted to patient's actual temperature (Bld) [Partial pressure] 43 mmHg Normal 36-46 [facility] Comment on above: Order Comment: Speci men Type: ARTERIAL BLOOD SPECIMENOrdering Facility: [facility] Address: [address] [place], [place] [address] Performed By: #### A LLBG ####[facility] LABCLIA [id number] [address] [address] [place] Glucose [Mass/Vol] 157 mg/dL High 60-105 [facility] Comment on above: Order Comment: Speci men Type: ARTERIAL BLOOD SPECIMENOrdering Facility: [facility] Address: [address] [place] [address] Performed By: #### A LLBG ####[facility] LABCLIA [id number] [place] [address] [place] HCO3 (Bld) [Moles/Vol] 26 mmol/L Normal 22-26 [facility] Comment on above: Order Comment: Speci men Type: ARTERIAL BLOOD SPECIMENOrdering Facility: [facility] Address: [address] [place] [address] Performed By: #### A LLBG ####[facility] LABCLIA [id number] [place] [address] [place] Hematocrit (Bld) [Volume fraction] 32.7 % Low 39.0-51.0 [facility] Comment on above: Order Comment: Speci men Type: ARTERIAL BLOOD SPECIMENOrdering Facility: [facility] Address: [address] [place] [address] Performed By: #### A LLBG ####[facility] LABCLIA [id number] [place] [address] [place] Hemoglobin (Bld) [Mass/Vol] 10.6 g/dL Low 13.0-17.0 [facility] Comment on above: Order Comment: Speci men Type: ARTERIAL BLOOD SPECIMENOrdering Facility: [facility] Address: [address] [place] [address] Performed By: #### A LLBG ####[facility] LABCLIA [id number] [place] [address] [place] Lactate [Moles/Vol] 1.2 mmol/L Normal 0.5-2.2 [facility] Comment on above: Order Comment: Speci men Type: ARTERIAL BLOOD SPECIMENOrdering Facility: [facility] Address: [address] [place] [address] Performed By: #### A LLBG ####[facility] LABCLIA [id number] [place] [address] [place] Methemoglobin (Bld) [Mass fraction] 0.2 % Normal 0.0-1.5 [facility] Comment on above: Order Comment: Speci men Type: ARTERIAL BLOOD SPECIMENOrdering Facility: [facility] Address: [address] [place] [address] Performed By: #### A LLBG ####[facility] LABCLIA [id number] [place] [id number] [place] O2 THERAPY RA=Room Air Normal [facility] Comment on above: Order Comment: Speci men Type: ARTERIAL BLOOD SPECIMENOrdering Facility: [facility] Address: [address] [place] [address] Performed By: #### A LLBG ####[facility] LABCLIA [id number] [place] [id number] [place] Oxygen (Bld) [Partial pressure] 136 mm Hg High 85-95 [facility] Comment on above: Order Comment: Speci men Type: ARTERIAL BLOOD SPECIMENOrdering Facility: [facility] Address: [address] [place] [address] Performed By: #### A LLBG ####[facility] LABCLIA [id number] [place] [id number] [place] Oxygen adjusted to patient's actual temperature (Bld) [Partial pressure] 134 mmHg High 85-95 [facility] Comment on above: Order Comment: Speci men Type: ARTERIAL BLOOD SPECIMENOrdering Facility: [facility] Address: [address] [place] [address] Performed By: #### A LLBG ####[facility] LABCLIA [id number] [place] [id number] [place] Oxyhemoglobin (BldA) [Mass fraction] 97 % Normal 95-98 [facility] Comment on above: Order Comment: Speci men Type: ARTERIAL BLOOD SPECIMENOrdering Facility: [facility] Address: [address] [place] [address] Performed By: #### A LLBG ####[facility] LABCLIA [id number] [address] [address] [place] pH (Bld) 7.39 [pH] Normal 7.35-7.45 [facility] Comment on above: Order Comment: Speci men Type: ARTERIAL BLOOD SPECIMENOrdering Facility: [facility] Address: [address] [place] [address] Performed By: #### A LLBG ####[facility] LABCLIA [id number] [place] [address] [place] pH adjusted to patient's actual temperature (Bld) 7.39 Normal 7.35-7.45 [facility] Comment on above: Order Comment: Speci men Type: ARTERIAL BLOOD SPECIMENOrdering Facility: [facility] Address: [address] [place] [address] Performed By: #### A LLBG ####[facility] LABCLIA [id number] [place] [address] [place] PO2 / FIO2 RATIO 648 mmHg Normal >300 [facility] Comment on above: Order Comment: Speci men Type: ARTERIAL BLOOD SPECIMENOrdering Facility: [facility] Address: [address] [place] [address] Performed By: #### A LLBG ####[facility] LABCLIA [id number] [place] [id number] [place] Potassium [Moles/Vol] 5.3 mmol/L High 3.5-5.0 [facility] Comment on above: Order Comment: Speci men Type: ARTERIAL BLOOD SPECIMENOrdering Facility: [facility] Address: [address] [place] [address] Performed By: #### A LLBG ####[facility] LABCLIA [id number] [address] [address] [place] Sodium [Moles/Vol] 129 mmol/L Low 136-144 [facility] Comment on above: Order Comment: Speci men Type: ARTERIAL BLOOD SPECIMENOrdering Facility: [facility] Address: [address] [place] [address] Performed By: #### A LLBG ####[facility] LABCLIA [id number] [place] [address] [place] Base excess Calc (Bld) [Moles/Vol] 1 mmol/L Normal 0-2 [facility] Comment on above: Order Comment: Speci men Type: ARTERIAL BLOOD SPECIMENOrdering Facility: [facility] Address: [address] [place] [address] Performed By: #### A LLBG ####[facility] LABIA [id number] [place] [address] [place] Body temperature 97.88 [degF] Normal [facility] Comment on above: Order Comment: Speci men Type: ARTERIAL BLOOD SPECIMENOrdering Facility: [facility] Address: [address] [place] [address] Performed By: #### A LLBG ####[facility] LABCLIA [id number] [place] [address] [place] Calcium.ionized (Bld) [Mass/Vol] 1.12 mmol/L Normal 1.08-1.30 [facility] Comment on above: Order Comment: Speci men Type: ARTERIAL BLOOD SPECIMENOrdering Facility: [facility] Address: [address] [place] [address] Performed By: #### A LLBG ####[facility] LABIA [id number] [place] [id number] [place] Calcium.ionized adjusted to pH 7.4 (BldA) [Moles/Vol] 1.11 mmol/L Normal 1.08-1.30 [facility] Comment on above: Order Comment: Speci men Type: ARTERIAL BLOOD SPECIMENOrdering Facility: [facility] Address: [address] [place] [address] Performed By: #### A LLBG ####[facility] LABCLIA [id number] [address] [address] [place] Carboxyhemoglobin (BldA) [Mass fraction] 1.1 % Normal 0.0-2.0 [facility] Comment on above: Order Comment: Speci men Type: ARTERIAL BLOOD SPECIMENOrdering Facility: [facility] Address: [address] [place] [address] Result Comment: Carb oxyhemoglobin Reference Range for Smokers: 2.0-8.0% Performed By: #### A LLBG ####[facility] LABCLIA [id number] [address] [place] CO2 (Bld) [Partial pressure] 43 mm Hg Normal 36-46 [facility] Comment on above: Order Comment: Speci men Type: ARTERIAL BLOOD SPECIMENOrdering Facility: [facility] Address: [address] [place] [address] Performed By: #### A LLBG ####[facility] LABCLIA [id number] [place] [id number] [facility] CO2 adjusted to patient's actual temperature (Bld) [Partial pressure] 42 mmHg Normal 36-46 [facility] Comment on above: Order Comment: Speci men Type: ARTERIAL BLOOD SPECIMENOrdering Facility: [facility] Address: [address] [place] [address] Performed By: #### A LLBG ####[facility] LABCLIA [id number] [address] [address] [place] Glucose [Mass/Vol] 175 mg/dL High 74-99 [facility] Comment on above: Order Comment: Speci men Type: ARTERIAL BLOOD SPECIMENOrdering Facility: [facility] Address: [address] [place] [address] Performed By: #### A LLBG ####[facility] LABCLIA [id number] [place] [id number] [place] Order Comment: Speci men Type: BLOOD SPECIMENOrdering Facility: [facility] Address: [address] [place] [address] Result Comment: The [place] [employer] (ADA) provides guidance for cutoff [...] Standards of Medical Care in Diabetes 2016, [place] [employer]. Diabetes Care. 2016.39(Suppl 1). Performed By: #### 2 4321-2 ####[facility] LABCLIA [id number] [place] [address] [place] HCO3 (Bld) [Moles/Vol] 25 mmol/L Normal 22-26 [facility] Comment on above: Order Comment: Speci men Type: ARTERIAL BLOOD SPECIMENOrdering Facility: [facility] Address: [address] [place] [address] Performed By: #### A LLBG ####[facility] LABCLIA [id number] [place] [address] [place] Hematocrit (Bld) [Volume fraction] 33.9 % Low 39.0-51.0 [facility] Comment on above: Order Comment: Speci men Type: ARTERIAL BLOOD SPECIMENOrdering Facility: [facility] Address: [address] [place] [address] Performed By: #### A LLBG ####[facility] LABCLIA [id number] [place] [address] [place] Hemoglobin (Bld) [Mass/Vol] 11.0 g/dL Low 13.0-17.0 [facility] Comment on above: Order Comment: Speci men Type: ARTERIAL BLOOD SPECIMENOrdering Facility: [facility] Address: [address] [id number] Performed By: #### A LLBG ####[facility] LABCLIA [id number] [address] [address] [place] Lactate [Moles/Vol] 1.0 mmol/L Normal 0.5-2.2 [facility] Comment on above: Order Comment: Speci men Type: ARTERIAL BLOOD SPECIMENOrdering Facility: [facility] Address: [address] [place], [place] [id number] Performed By: #### A LLBG ####[facility] LABCLIA [id number] [place] [address] [place] Methemoglobin (Bld) [Mass fraction] 1.0 % Normal 0.0-1.5 [facility] Comment on above: Order Comment: Speci men Type: ARTERIAL BLOOD SPECIMENOrdering Facility: [facility] Address: [address] [place] [address] Performed By: #### A LLBG ####[facility] LABIA [id number] [place] [address] [place] O2 THERAPY RA=Room Air Normal [facility] Comment on above: Order Comment: Speci men Type: ARTERIAL BLOOD SPECIMENOrdering Facility: [facility] Address: [address] [place] [address] Performed By: #### A LLBG ####[facility] LABCLIA [id number] [address] [place] [address] [place] Oxygen (Bld) [Partial pressure] 169 mm Hg High 85-95 [facility] Comment on above: Order Comment: Speci men Type: ARTERIAL BLOOD SPECIMENOrdering Facility: [facility] Address: [address] [place], [place] [id number] Performed By: #### A LLBG ####[facility] LABCLIA [id number] [address] [address] [place] Oxygen adjusted to patient's actual temperature (Bld) [Partial pressure] 167 mmHg High 85-95 [facility] Comment on above: Order Comment: Speci men Type: ARTERIAL BLOOD SPECIMENOrdering Facility: [facility] Address: [address] [place] [address] Performed By: #### A LLBG ####[facility] LABCLIA [id number] [address] [address] [place] Oxyhemoglobin (BldA) [Mass fraction] 97 % Normal 95-98 [facility] Comment on above: Order Comment: Speci men Type: ARTERIAL BLOOD SPECIMENOrdering Facility: [facility] Address: [address] [place] [address] Performed By: #### A LLBG ####[facility] LABCLIA [id number] [place] [id number] [place] pH (Bld) 7.39 [pH] Normal 7.35-7.45 [facility] Comment on above: Order Comment: Speci men Type: ARTERIAL BLOOD SPECIMENOrdering Facility: [facility] Address: [address] [place] [address] Performed By: #### A LLBG ####[facility] LABCLIA [id number] [address] [address] [place] pH adjusted to patient's actual temperature (Bld) 7.39 Normal 7.35-7.45 [facility] Comment on above: Order Comment: Speci men Type: ARTERIAL BLOOD SPECIMENOrdering Facility: [facility] Address: [address] [place] [address] Performed By: #### A LLBG ####[facility] LABCLIA [id number] [address] [address] [place] PO2 / FIO2 RATIO 805 mmHg Normal >300 [facility] Comment on above: Order Comment: Speci men Type: ARTERIAL BLOOD SPECIMENOrdering Facility: [facility] Address: [address] [place] [address] Performed By: #### A LLBG ####[facility] LABCLIA [id number] [place] [address] [place] Potassium [Moles/Vol] 5.3 mmol/L High 3.5-5.0 [facility] Comment on above: Order Comment: Speci men Type: ARTERIAL BLOOD SPECIMENOrdering Facility: [facility] Address: [address] [place] [address] Performed By: #### A LLBG ####[facility] LABCLIA [id number] [place] [address] [place] Sodium [Moles/Vol] 131 mmol/L Low 136-144 [facility] Comment on above: Order Comment: Speci men Type: ARTERIAL BLOOD SPECIMENOrdering Facility: [facility] Address: [address] [place] [address] Performed By: #### A LLBG ####[facility] LABIA [id number] [place] [address] [place] Base excess Calc (Bld) [Moles/Vol] 0 mmol/L Normal 0-2 [facility] Comment on above: Order Comment: Speci men Type: ARTERIAL BLOOD SPECIMENOrdering Facility: [facility] Address: [address] [place] [address] Performed By: #### A LLBG ####[facility] LABCLIA [id number] [place] [address] [place] Body temperature 97.52 [degF] Normal [facility] Comment on above: Order Comment: Speci men Type: ARTERIAL BLOOD SPECIMENOrdering Facility: [facility] Address: [address] [place] [address] Performed By: #### A LLBG ####[facility] LABCLIA [id number] [place] [address] [place] Calcium.ionized (Bld) [Mass/Vol] 1.10 mmol/L Normal 1.08-1.30 [facility] Comment on above: Order Comment: Speci men Type: ARTERIAL BLOOD SPECIMENOrdering Facility: [facility] Address: [address] [place] [address] Performed By: #### A LLBG ####[facility] LABCLIA [id number] [place] [address] [place] Calcium.ionized adjusted to pH 7.4 (BldA) [Moles/Vol] 1.09 mmol/L Normal 1.08-1.30 [facility] Comment on above: Order Comment: Speci men Type: ARTERIAL BLOOD SPECIMENOrdering Facility: [facility] Address: [address] [place] [address] Performed By: #### A LLBG ####[facility] LABCLIA [id number] [place] [address] [place] Carboxyhemoglobin (BldA) [Mass fraction] 1.3 % Normal 0.0-2.0 [facility] Comment on above: Order Comment: Speci men Type: ARTERIAL BLOOD SPECIMENOrdering Facility: [facility] Address: [address] [place] [address] Result Comment: Carb oxyhemoglobin Reference Range for Smokers: 2.0-8.0% Performed By: #### A LLBG ####[facility] LABCLIA [id number] [place] [address] [place] CO2 (Bld) [Partial pressure] 45 mm Hg Normal 36-46 [facility] Comment on above: Order Comment: Speci men Type: ARTERIAL BLOOD SPECIMENOrdering Facility: [facility] Address: [address] [place] [address] Performed By: #### A LLBG ####[facility] LABCLIA [id number] [place] [address] [place] CO2 adjusted to patient's actual temperature (Bld) [Partial pressure] 43 mmHg Normal 36-46 [facility] Comment on above: Order Comment: Speci men Type: ARTERIAL BLOOD SPECIMENOrdering Facility: [facility] Address: [address] [place] [address] Performed By: #### A LLBG ####[facility] LABCLIA [id number] [address] [address] [place] Glucose [Mass/Vol] 179 mg/dL High 60-105 [facility] Comment on above: Order Comment: Speci men Type: ARTERIAL BLOOD SPECIMENOrdering Facility: [facility] Address: [address] [place] [address] Performed By: #### A LLBG ####[facility] LABCLIA [id number] [place] [address] [place] HCO3 (Bld) [Moles/Vol] 25 mmol/L Normal 22-26 [facility] Comment on above: Order Comment: Speci men Type: ARTERIAL BLOOD SPECIMENOrdering Facility: [facility] Address: [address] [place] [address] Performed By: #### A LLBG ####[facility] LABCLIA [id number] [place] [address] [place] Hematocrit (Bld) [Volume fraction] 35.9 % Low 39.0-51.0 [facility] Comment on above: Order Comment: Speci men Type: ARTERIAL BLOOD SPECIMENOrdering Facility: [facility] Address: [address] [place] [address] Performed By: #### A LLBG ####[facility] LABCLIA [id number] [place] [id number] [place] Hemoglobin (Bld) [Mass/Vol] 11.6 g/dL Low 13.0-17.0 [facility] Comment on above: Order Comment: Speci men Type: ARTERIAL BLOOD SPECIMENOrdering Facility: [facility] Address: [address] [place] [address] Performed By: #### A LLBG ####[facility] LABCLIA [id number] [address] [address] [place] Lactate [Moles/Vol] 1.3 mmol/L Normal 0.5-2.2 [facility] Comment on above: Order Comment: Speci men Type: ARTERIAL BLOOD SPECIMENOrdering Facility: [facility] Address: [address] [place] [address] Performed By: #### A LLBG ####[facility] LABCLIA [id number] [address] [address] [place] Methemoglobin (Bld) [Mass fraction] 1.4 % Normal 0.0-1.5 [facility] Comment on above: Order Comment: Speci men Type: ARTERIAL BLOOD SPECIMENOrdering Facility: [facility] Address: [address] [place] [address] Performed By: #### A LLBG ####[facility] LABCLIA [id number] [place] [id number] [place] O2 THERAPY RA=Room Air Normal [facility] Comment on above: Order Comment: Speci men Type: ARTERIAL BLOOD SPECIMENOrdering Facility: [facility] Address: [address] [place] [address] Performed By: #### A LLBG ####[facility] LABIA [id number] [place] [id number] [place] Oxygen (Bld) [Partial pressure] 95 mm Hg Normal 85-95 [facility] Comment on above: Order Comment: Speci men Type: ARTERIAL BLOOD SPECIMENOrdering Facility: [facility] Address: [address] [place], [place] [address] Performed By: #### A LLBG ####[facility] LABCLIA [id number] [address] [address] [place] Oxygen adjusted to patient's actual temperature (Bld) [Partial pressure] 92 mmHg Normal 85-95 [facility] Comment on above: Order Comment: Speci men Type: ARTERIAL BLOOD SPECIMENOrdering Facility: [facility] Address: [address] [place], [place] [address] Performed By: #### A LLBG ####[facility] LABCLIA [id number] [address] [address] [place] Oxyhemoglobin (BldA) [Mass fraction] 94 % Low 95-98 [facility] Comment on above: Order Comment: Speci men Type: ARTERIAL BLOOD SPECIMENOrdering Facility: [facility] Address: [address] [place] [address] Performed By: #### A LLBG ####[facility] LABCLIA [id number] [place] [id number] [place] pH (Bld) 7.37 [pH] Normal 7.35-7.45 [facility] Comment on above: Order Comment: Speci men Type: ARTERIAL BLOOD SPECIMENOrdering Facility: [facility] Address: [address] [place] [address] Performed By: #### A LLBG ####[facility] LABCLIA [id number] [place] [id number] [place] pH adjusted to patient's actual temperature (Bld) 7.38 Normal 7.35-7.45 [facility] Comment on above: Order Comment: Speci men Type: ARTERIAL BLOOD SPECIMENOrdering Facility: [facility] Address: [address] [place] [address] Performed By: #### A LLBG ####[facility] LABCLIA [id number] [address] [address] [place] PO2 / FIO2 RATIO 452 mmHg Normal >300 [facility] Comment on above: Order Comment: Speci men Type: ARTERIAL BLOOD SPECIMENOrdering Facility: [facility] Address: [address] [place], [place] [address] Performed By: #### A LLBG ####[facility] LABCLIA [id number] [place] [address] [place] Potassium [Moles/Vol] 5.3 mmol/L High 3.5-5.0 [facility] Comment on above: Order Comment: Speci men Type: ARTERIAL BLOOD SPECIMENOrdering Facility: [facility] Address: [address] [place] [address] Performed By: #### A LLBG ####[facility] LABCLIA [id number] [place] [address] [place] Sodium [Moles/Vol] 130 mmol/L Low 136-144 [facility] Comment on above: Order Comment: Speci men Type: ARTERIAL BLOOD SPECIMENOrdering Facility: [facility] Address: [address] [place] [address] Performed By: #### A LLBG ####[facility] LABCLIA [id number] [place] [address] [place] Base excess Calc (Bld) [Moles/Vol] 2 mmol/L Normal 0-2 [facility] Comment on above: Order Comment: Speci men Type: ARTERIAL BLOOD SPECIMENOrdering Facility: [facility] Address: [address] [place] [address] Performed By: #### A LLBG ####[facility] LABCLIA [id number] [place] [address] [place] Body temperature 98.6 [degF] Normal [facility] Comment on above: Order Comment: Speci men Type: ARTERIAL BLOOD SPECIMENOrdering Facility: [facility] Address: [address] [place] [address] Performed By: #### A LLBG ####[facility] LABCLIA [id number] [place] [address] [place] Calcium.ionized (Bld) [Mass/Vol] 1.10 mmol/L Normal 1.08-1.30 [facility] Comment on above: Order Comment: Speci men Type: ARTERIAL BLOOD SPECIMENOrdering Facility: [facility] Address: [address] [place] [address] Performed By: #### A LLBG ####[facility] [id number] [place] [address] [place] Calcium.ionized adjusted to pH 7.4 (BldA) [Moles/Vol] 1.08 mmol/L Normal 1.08-1.30 [facility] Comment on above: Order Comment: Speci men Type: ARTERIAL BLOOD SPECIMENOrdering Facility: [facility] Address: [address] [place] [address] Performed By: #### A LLBG ####[facility] [id number] [place] [address] [place] Carboxyhemoglobin (BldA) [Mass fraction] 1.4 % Normal 0.0-2.0 [facility] Comment on above: Order Comment: Speci men Type: ARTERIAL BLOOD SPECIMENOrdering Facility: [facility] Address: [address] [place] [address] Result Comment: Carb oxyhemoglobin Reference Range for Smokers: 2.0-8.0% Performed By: #### A LLBG ####[facility] [id number] [place] [address] [place] CO2 (Bld) [Partial pressure] 47 mm Hg High 36-46 [facility] Comment on above: Order Comment: Speci men Type: ARTERIAL BLOOD SPECIMENOrdering Facility: [facility] Address: [address] [place] [address] Performed By: #### A LLBG ####[facility] LABIA [id number] [place] [address] [place] Glucose [Mass/Vol] 228 mg/dL High 60-105 [facility] Comment on above: Order Comment: Speci men Type: ARTERIAL BLOOD SPECIMENOrdering Facility: [facility] Address: [address] [place] [address] Performed By: #### A LLBG ####[facility] LABCLIA [id number] [place] [id number] [place] HCO3 (Bld) [Moles/Vol] 27 mmol/L High 22-26 [facility] Comment on above: Order Comment: Speci men Type: ARTERIAL BLOOD SPECIMENOrdering Facility: [facility] Address: [address] [place] [address] Performed By: #### A LLBG ####[facility] LABCLIA [id number] [place] [address] [place] Hematocrit (Bld) [Volume fraction] 34.4 % Low 39.0-51.0 [facility] Comment on above: Order Comment: Speci men Type: ARTERIAL BLOOD SPECIMENOrdering Facility: [facility] Address: [address] [place] [address] Performed By: #### A LLBG ####[facility] LABIA [id number] [place] [address] [place] Hemoglobin (Bld) [Mass/Vol] 11.2 g/dL Low 13.0-17.0 [facility] Comment on above: Order Comment: Speci men Type: ARTERIAL BLOOD SPECIMENOrdering Facility: [facility] Address: [address] [place] [address] Performed By: #### A LLBG ####[facility] LABIA [id number] [place] [address] [place] Lactate [Moles/Vol] 1.2 mmol/L Normal 0.5-2.2 [facility] Comment on above: Order Comment: Speci men Type: ARTERIAL BLOOD SPECIMENOrdering Facility: [facility] Address: [address] [place] [address] Performed By: #### A LLBG ####[facility] LABCLIA [id number] [place] [address] [place] Methemoglobin (Bld) [Mass fraction] 1.3 % Normal 0.0-1.5 [facility] Comment on above: Order Comment: Speci men Type: ARTERIAL BLOOD SPECIMENOrdering Facility: [facility] Address: [address] [place] [address] Performed By: #### A LLBG ####[facility] LABCLIA [id number] [address] [address] [place] O2 THERAPY RA=Room Air Normal [facility] Comment on above: Order Comment: Speci men Type: ARTERIAL BLOOD SPECIMENOrdering Facility: [facility] Address: [address] [place] [address] Performed By: #### A LLBG ####[facility] LABCLIA [id number] [address] [address] [place] Oxygen (Bld) [Partial pressure] 69 mm Hg Low 85-95 [facility] Comment on above: Order Comment: Speci men Type: ARTERIAL BLOOD SPECIMENOrdering Facility: [facility] Address: [address] [place] [address] Performed By: #### A LLBG ####[facility] LABCLIA [id number] [place] [address] [place] Oxyhemoglobin (BldA) [Mass fraction] 90 % Low 95-98 [facility] Comment on above: Order Comment: Speci men Type: ARTERIAL BLOOD SPECIMENOrdering Facility: [facility] Address: [address] [place] [address] Performed By: #### A LLBG ####[facility] LABCLIA [id number] [address] [address] [place] pH (Bld) 7.38 [pH] Normal 7.35-7.45 [facility] Comment on above: Order Comment: Speci men Type: ARTERIAL BLOOD SPECIMENOrdering Facility: [facility] Address: [address] [place], [place] [address] Performed By: #### A LLBG ####[facility] LABCLIA [id number] [address] [address] [place] PO2 / FIO2 RATIO 329 mmHg Normal >300 [facility] Comment on above: Order Comment: Speci men Type: ARTERIAL BLOOD SPECIMENOrdering Facility: [facility] Address: [address] [place] [address] Performed By: #### A LLBG ####[facility] LABCLIA [id number] [place] [id number] [place] Potassium [Moles/Vol] 5.1 mmol/L High 3.5-5.0 [facility] Comment on above: Order Comment: Speci men Type: ARTERIAL BLOOD SPECIMENOrdering Facility: [facility] Address: [address] [place] [address] Performed By: #### A LLBG ####[facility] LABIA [id number] [place] [address] [place] Sodium [Moles/Vol] 130 mmol/L Low 136-144 [facility] Comment on above: Order Comment: Speci men Type: ARTERIAL BLOOD SPECIMENOrdering Facility: [facility] Address: [address] [place] [address] Performed By: #### A LLBG ####[facility] LABCLIA [id number] [place] [id number] [place] Basic Metabolic Profile (BMP )on 11-25-2024 BUN Normal -19 [facility] Comment on above: Result Comment: Canc elled via OM: MD Ordered Performed By: #### L 500.2500, L100.0100 ####[facility] [address] [place], [address] BUN/CRE Normal 10-20 [facility] Comment on above: Result Comment: Canc elled via OM: MD Ordered Performed By: #### L 500.2500, L100.0100 ####[facility] [address] [place], [address] Calcium Normal 7.6-11.0 [facility] Comment on above: Result Comment: Canc elled via OM: MD Ordered Performed By: #### L 500.2500, L100.0100 ####[facility] [address] [place], [address] CL Normal 98-108 [facility] Comment on above: Result Comment: Canc elled via OM: MD Ordered Performed By: #### L 500.2500, L100.0100 ####[facility] [address] [place], [address] CO2 Normal 21.0-32.0 [facility] Comment on above: Result Comment: Canc elled via OM: MD Ordered Performed By: #### L 500.2500, L100.0100 ####[facility] [address] [place], [address] CREAT,SERUM Normal 0.70-1.20 [facility] Comment on above: Result Comment: Canc elled via OM: MD Ordered Performed By: #### L 500.2500, L100.0100 ####[facility] [address] [place], [address] eGFR Normal >60 [facility] Comment on above: Result Comment: Canc elled via OM: MD Ordered Performed By: #### L 500.2500, L100.0100 ####[facility] [address] [place], [address] GAP Normal 5-15 [facility] Comment on above: Result Comment: Canc elled via OM: MD Ordered Performed By: #### L 500.2500, L100.0100 ####[facility] [address] [place], [address] GLU Normal 70-99 [facility] Comment on above: Result Comment: Canc elled via OM: MD Ordered Performed By: #### L 500.2500, L100.0100 ####[facility] [address] [place], [address] Potassium Normal 3.3-5.1 [facility] Comment on above: Result Comment: Canc elled via OM: MD Ordered Performed By: #### L 500.2500, L100.0100 ####[facility] [address] [place], [address] Basic Metabolic Profile (BMP) Normal 133-145 [facility] Comment on above: Result Comment: Canc elled via OM: MD Ordered Performed By: #### L 500.2500, L100.0100 ####[facility] [address] [place], [address] Basic metabolic 2000 panelon 11-25-2024 Anion gap [Moles/Vol] 18 mmol/L High 8-15 [facility] Comment on above: Order Comment: Speci men Type: BLOOD SPECIMENOrdering Facility: [facility] Address: [address] [place] [address] Performed By: #### 1 9123-9, 2777-1, 17314-3 ####[facility] LABIA [id number] [place] [address] [place] Calcium [Mass/Vol] 8.9 mg/dL Normal 8.5-10.2 [facility] Comment on above: Order Comment: Speci men Type: BLOOD SPECIMENOrdering Facility: [facility] Address: [address] [id number] Performed By: #### 1 9123-9, 2777-1, 81548-1 ####[facility] LABCLIA [id number] [address] [address] [place] Chloride [Moles/Vol] 90 mmol/L Low 98-107 [facility] Comment on above: Order Comment: Speci men Type: BLOOD SPECIMENOrdering Facility: [facility] Address: [address] [place] [address] Performed By: #### 1 9123-9, 2777, 20484-8 ####[facility] LABCLIA [id number] [place] [id number] [place] CO2 [Moles/Vol] 23 mmol/L Normal 22-30 [facility] Comment on above: Order Comment: Speci men Type: BLOOD SPECIMENOrdering Facility: [facility] Address: [address] [place] [address] Performed By: #### 1 9123-9, 2777, 31819-0 ####[facility] LABIA [id number] [place] [address] [place] Creatinine [Mass/Vol] 6.58 mg/dL High 0.73-1.22 [facility] Comment on above: Order Comment: Speci men Type: BLOOD SPECIMENOrdering Facility: [facility] Address: [address] [place] [address] Performed By: #### 1 9123-9, 2777, ####[facility] LABIA [id number] [place] [address] [place] Creatinine and Glomerular filtration rate.predicted panel (S/P/Bld) 8 mL/min/1.73m??? Low >=60 [facility] Comment on above: Order Comment: Speci men Type: BLOOD SPECIMENOrdering Facility: [facility] Address: [address] [place] [address] Result Comment: Tessa mated Glomerular Filtration Rate [...] GFR. Performed By: #### 1 9123-9, 2777-, 03307-6 ####[facility] LABCLIA [id number] [place] [id number] [place] Glucose [Mass/Vol] 75 mg/dL Normal 74-99 [facility] Comment on above: Order Comment: Speci men Type: BLOOD SPECIMENOrdering Facility: [facility] Address: [address] [place] [address] Result Comment: The [place] Diabetes Association (ADA) provides guidance for cutoff [...] Standards of Medical Care in Diabetes 2016, [place] [employer]. Diabetes Care. 2016.39(Suppl 1). Performed By: #### 1 9123-9, 2777-, 73379-8 ####[facility] LABCLIA [id number] [place] [address] [place] Potassium [Moles/Vol] 5.2 mmol/L High 3.7-5.1 [facility] Comment on above: Order Comment: Speci men Type: BLOOD SPECIMENOrdering Facility: [facility] Address: [address] [place] [address] Performed By: #### 1 9123-9, 2777-, 48808-9 ####[facility] LABCLIA [id number] [place] [id number] [place] Sodium [Moles/Vol] 131 mmol/L Low 136-144 [facility] Comment on above: Order Comment: Speci men Type: BLOOD SPECIMENOrdering Facility: [facility] Address: [address] [place], [place] [address] Performed By: #### 1 9123-9, 2777-, 17168-2 ####[facility] LABCLIA [id number] [address] [place] [address] [place] Urea nitrogen [Mass/Vol] 88 mg/dL High 9-24 [facility] Comment on above: Order Comment: Speci men Type: BLOOD SPECIMENOrdering Facility: [facility] Address: [address] [place], [place] [address] Performed By: #### 1 9123-9, 2777-1, 19206-0 ####[facility] LABCLIA [id number] [address] [address] [place] Anion gap [Moles/Vol] 19 mmol/L High 8-15 [facility] Comment on above: Order Comment: Speci men Type: BLOOD SPECIMENOrdering Facility: [facility] Address: [address] [place], [place] [address] Performed By: #### 2 4321-2 ####[facility] LABCLIA [id number] [address] [address] [place] Calcium [Mass/Vol] 8.9 mg/dL Normal 8.5-10.2 [facility] Comment on above: Order Comment: Speci men Type: BLOOD SPECIMENOrdering Facility: [facility] Address: [address] [place], [place] [address] Performed By: #### 2 4321-2 ####[facility] LABCLIA [id number] [address] [address] [place] Chloride [Moles/Vol] 89 mmol/L Low 98-107 [facility] Comment on above: Order Comment: Speci men Type: BLOOD SPECIMENOrdering Facility: [facility] Address: [address] [place], [place] [address] Performed By: #### 2 4321-2 ####[facility] LABCLIA [id number] [address] [place] [address] [place] CO2 [Moles/Vol] 22 mmol/L Normal 22-30 [facility] Comment on above: Order Comment: Speci men Type: BLOOD SPECIMENOrdering Facility: [facility] Address: [address] [place] [address] Performed By: #### 2 4321-2 ####[facility] LABCLIA [id number] [place] [id number] [place] Creatinine [Mass/Vol] 6.20 mg/dL High 0.73-1.22 [facility] Comment on above: Order Comment: Speci men Type: BLOOD SPECIMENOrdering Facility: [facility] Address: [address] [place] [address] Performed By: #### 2 4321-2 ####[facility] LABIA [id number] [place] [address] [place] Creatinine and Glomerular filtration rate.predicted panel (S/P/Bld) 8 mL/min/1.73m??? Low >=60 [facility] Comment on above: Order Comment: Speci men Type: BLOOD SPECIMENOrdering Facility: [facility] Address: [address] [place] [address] Result Comment: Tessa mated Glomerular Filtration Rate [...] actual GFR. Performed By: #### 2 4321-2 ####[facility] LABCLIA [id number] [place] [id number] [place] Potassium [Moles/Vol] 5.5 mmol/L High 3.7-5.1 [facility] Comment on above: Order Comment: Speci men Type: BLOOD SPECIMENOrdering Facility: [facility] Address: [address] [place], [place] [address] Performed By: #### 2 4321-2 ####[facility] LABCLIA [id number] [address] [address] [place] Sodium [Moles/Vol] 130 mmol/L Low 136-144 [facility] Comment on above: Order Comment: Speci men Type: BLOOD SPECIMENOrdering Facility: [facility] Address: [address] [place] [address] Performed By: #### 2 4321-2 ####[facility] LABCLIA [id number] [place] [id number] [place] Urea nitrogen [Mass/Vol] 83 mg/dL High 9-24 [facility] Comment on above: Order Comment: Speci men Type: BLOOD SPECIMENOrdering Facility: [facility] Address: [address] [place] [address] Performed By: #### 2 4321-2 ####[facility] LABCLIA [id number] [place] [id number] [place] CBC W/Diff, Automatedon 07-0 Absolute Neut Normal 2.0-7.7 [facility] Comment on above: Result Comment: Canc elled via OM: MD Ordered Performed By: #### L 500.2500, L100.0100 ####[facility] [address] [place], [address] HCT Normal 40-54 [facility] Comment on above: Result Comment: Canc elled via OM: MD Ordered Performed By: #### L 500.2500, L100.0100 ####[facility] [address] [place], [address] HGB Normal 13.0-16.5 [facility] Comment on above: Result Comment: Canc elled via OM: MD Ordered Performed By: #### L 500.2500, L100.0100 ####[facility] [address] [place], [address] MCH Normal 27.0-32.0 [facility] Comment on above: Result Comment: Canc elled via OM: MD Ordered Performed By: #### L 500.2500, L100.0100 ####[facility] [address] [place], [address] MCHC Normal 32-36 [facility] Comment on above: Result Comment: Canc elled via OM: MD Ordered Performed By: #### L 500.2500, L100.0100 ####[facility] [address] [place], [address] MCV Normal 80-94 [facility] Comment on above: Result Comment: Canc elled via OM: MD Ordered Performed By: #### L 500.2500, L100.0100 ####[facility] [address] [place], [address] NEUT% Normal 47-70 [facility] Comment on above: Result Comment: Canc elled via OM: MD Ordered Performed By: #### L 500.2500, L100.0100 ####[facility] [address] [place], [address] PLT Normal 150-450 [facility] Comment on above: Result Comment: Canc elled via OM: MD Ordered Performed By: #### L 500.2500, L100.0100 ####[facility] [address] [place], [address] RBC Normal 4.6-6.2 [facility] Comment on above: Result Comment: Canc elled via OM: MD Ordered Performed By: #### L 500.2500, L100.0100 ####[facility] [address] [place], [address] RDW CV Normal 11.6-14.6 [facility] Comment on above: Result Comment: Canc elled via OM: MD Ordered Performed By: #### L 500.2500, L100.0100 ####[facility] [address] [place], [address] RDW SD Normal 35.1-43.9 [facility] Comment on above: Result Comment: Canc elled via OM: MD Ordered Performed By: #### L 500.2500, L100.0100 ####[facility] [address] [place], [address] WBC Normal 4.4-11.0 [facility] Comment on above: Result Comment: Canc elled via OM: MD Ordered Performed By: #### L 500.2500, L100.0100 ####[facility] [address] [place], [address] CBC panel Auto (Bld)on 11-25 Erythrocyte distribution width (RBC) [Ratio] 16.2 % High 11.5-15.0 [facility] Comment on above: Order Comment: Speci men Type: BLOOD SPECIMENOrdering Facility: [facility] Address: [address] [place] [address] Performed By: #### 5 8410-2 ####[facility] LABIA [id number] [place] [address] [place] Hematocrit (Bld) [Volume fraction] 34.0 % Low 39.0-51.0 [facility] Comment on above: Order Comment: Speci men Type: BLOOD SPECIMENOrdering Facility: [facility] Address: [address] [place] [address] Performed By: #### 5 8410-2 ####[facility] LABCLIA [id number] [address] [address] [place] Hemoglobin (Bld) [Mass/Vol] 10.6 g/dL Low 13.0-17.0 [facility] Comment on above: Order Comment: Speci men Type: BLOOD SPECIMENOrdering Facility: [facility] Address: [address] [place] [address] Performed By: #### 5 8410-2 ####[facility] LABCLIA [id number] [place] [address] [place] MCH (RBC) [Entitic mass] 27.8 pg Normal 26.0-34.0 [facility] Comment on above: Order Comment: Speci men Type: BLOOD SPECIMENOrdering Facility: [facility] Address: [address] [place] [address] Performed By: #### 5 8410-2 ####[facility] LABIA [id number] [place] [address] [place] MCHC (RBC) [Mass/Vol] 31.2 g/dL Normal 30.5-36.0 [facility] Comment on above: Order Comment: Speci men Type: BLOOD SPECIMENOrdering Facility: [facility] Address: [address] [place] [address] Performed By: #### 5 8410-2 ####[facility] LABIA [id number] [address] [place] MCV (RBC) [Entitic vol] 89.2 fL Normal 80.0-100.0 [facility] Comment on above: Order Comment: Speci men Type: BLOOD SPECIMENOrdering Facility: [facility] Address: [address] [place] [address] Performed By: #### 5 8410-2 ####[facility] LABIA [id number] [place] [address] [place] Nucleated RBC (Bld) [#/Vol] 10*3/uL Normal <0.01 [facility] Comment on above: Order Comment: Speci men Type: BLOOD SPECIMENOrdering Facility: [facility] Address: [address] [place] [address] Performed By: #### 5 8410-2 ####[facility] LABCLIA [id number] [place] [address] [place] Platelet mean volume (Bld) [Entitic vol] 11.8 fL Normal 9.0-12.7 [facility] Comment on above: Order Comment: Speci men Type: BLOOD SPECIMENOrdering Facility: [facility] Address: [address] [place] [address] Performed By: #### 5 8410-2 ####[facility] LABCLIA [id number] [address] [address] [place] Platelets (Bld) [#/Vol] 142 10*3/uL Low 150-400 [facility] Comment on above: Order Comment: Speci men Type: BLOOD SPECIMENOrdering Facility: [facility] Address: [address] [place] [address] Performed By: #### 5 8410-2 ####[facility] LABCLIA [id number] [address] [address] [place] RBC (Bld) [#/Vol] 3.81 10*6/uL Low 4.20-6.00 [facility] Comment on above: Order Comment: Speci men Type: BLOOD SPECIMENOrdering Facility: [facility] Address: [address] [place] [address] Performed By: #### 5 8410-2 ####[facility] LABCLIA [id number] [place] [id number] [place] WBC (Bld) [#/Vol] 8.99 10*3/uL Normal 3.70-11.00 [facility] Comment on above: Order Comment: Speci men Type: BLOOD SPECIMENOrdering Facility: [facility] Address: [address] [place] [address] Performed By: #### 5 8410-2 ####[facility] LABCLIA [id number] [address] [address] [place] CONSULT PROGon 11-25-2024 CONSULT PROG Normal [facility] Comprehensive metabolic 2000 panelon 11-25-2024 Albumin [Mass/Vol] 3.5 g/dL Low 3.9-4.9 [facility] Comment on above: Order Comment: Speci men Type: BLOOD SPECIMENOrdering Facility: [facility] Address: [address] [id number] Performed By: #### 1 9123-9, 37698-4 ####[facility] LABCLIA [id number] [address] [place] [address] [place] ALP [Catalytic activity/Vol] 66 U/L Normal 38-113 [facility] Comment on above: Order Comment: Speci men Type: BLOOD SPECIMENOrdering Facility: [facility] Address: [address] [place], [place] [address] Performed By: #### 1 9123-9, 18276-3 ####[facility] LABCLIA [id number] [place] [id number] [place] ALT [Catalytic activity/Vol] 37 U/L Normal 10-54 [facility] Comment on above: Order Comment: Speci men Type: BLOOD SPECIMENOrdering Facility: [facility] Address: [address] [place], [place] [address] Performed By: #### 1 9123-9, 64742-8 ####[facility] LABCLIA [id number] [place] [id number] [place] Anion gap [Moles/Vol] 19 mmol/L High 8-15 [facility] Comment on above: Order Comment: Speci men Type: BLOOD SPECIMENOrdering Facility: [facility] Address: [address] [place], [place] [address] Performed By: #### 1 9123-9, 07928-1 ####[facility] LABCLIA [id number] [place] [id number] [place] AST [Catalytic activity/Vol] 21 U/L Normal 14-40 [facility] Comment on above: Order Comment: Speci men Type: BLOOD SPECIMENOrdering Facility: [facility] Address: [address] [place], [place] [address] Performed By: #### 1 9123-01, ####[facility] LABCLIA [id number] [facility] [address] [place] [address] [place] Bilirubin [Mass/Vol] 0.2 mg/dL Normal 0.2-1.3 [facility] Comment on above: Order Comment: Speci men Type: BLOOD SPECIMENOrdering Facility: [facility] Address: [address] [place] [address] Performed By: #### 1 9123-01, ####[facility] LABCLIA [id number] [address] [place] [address] [place] Calcium [Mass/Vol] 8.9 mg/dL Normal 8.5-10.2 [facility] Comment on above: Order Comment: Speci men Type: BLOOD SPECIMENOrdering Facility: [facility] Address: [address] [place] [address] Performed By: #### 1 9123-01, ####[facility] LABCLIA [id number] [address] [place] [address] [place] Chloride [Moles/Vol] 90 mmol/L Low 98-107 [facility] Comment on above: Order Comment: Speci men Type: BLOOD SPECIMENOrdering Facility: [facility] Address: [address] [place] [address] Performed By: #### 1 9123-01, ####[facility] LABCLIA [id number] [address] [place] [address] [place] CO2 [Moles/Vol] 23 mmol/L Normal 22-30 [facility] Comment on above: Order Comment: Speci men Type: BLOOD SPECIMENOrdering Facility: [facility] Address: [address] [place], [place] [address] Performed By: #### 1 23-9, ####[facility] LABCLIA [id number] [address] [address] [place] Creatinine [Mass/Vol] 6.00 mg/dL High 0.73-1.22 [facility] Comment on above: Order Comment: Lesvia aleman Type: BLOOD SPECIMENOrdering Facility: [facility] Address: [address] [place] [address] Performed By: #### 1 9123-9, 34725-1 ####[facility] LABCLIA [id number] [address] [place] Creatinine and Glomerular filtration rate.predicted panel (S/P/Bld) 8 mL/min/1.73m??? Low >=60 [facility] Comment on above: Order Comment: Lesvia aleman Type: BLOOD SPECIMENOrdering Facility: [facility] Address: [address] [place] [address] Result Comment: Tessa mated Glomerular Filtration Rate [...] actual GFR. Performed By: #### 1 9123-9, ####[facility] LABCLIA [id number] [place] [address] [place] Glucose [Mass/Vol] 227 mg/dL High 74-99 [facility] Comment on above: Order Comment: Lesvia aleman Type: BLOOD SPECIMENOrdering Facility: [facility] Address: [address] [place] [address] Result Comment: The [place] [employer] (ADA) provides guidance for cutoff [...] Standards of Medical Care in Diabetes 2016, [place] [employer]. Diabetes Care. 2016.39(Suppl 1). Performed By: #### 1 9123-01, ####[facility] LABCLIA [id number] [address] [address] [place] Potassium [Moles/Vol] 5.3 mmol/L High 3.7-5.1 [facility] Comment on above: Order Comment: Speci men Type: BLOOD SPECIMENOrdering Facility: [facility] Address: [address] [place] [address] Performed By: #### 1 9, ####[facility] LABCLIA [id number] [address] [address] [place] Protein [Mass/Vol] 6.6 g/dL Normal 6.3-8.0 [facility] Comment on above: Order Comment: Speci men Type: BLOOD SPECIMENOrdering Facility: [facility] Address: [address] [place] [address] Performed By: #### 1 9123-01, ####[facility] LABIA [id number] [address] [address] [place] Sodium [Moles/Vol] 132 mmol/L Low 136-144 [facility] Comment on above: Order Comment: Speci men Type: BLOOD SPECIMENOrdering Facility: [facility] Address: [address] [address] Performed By: #### 1 9123-01, ####[facility] LABCLIA [id number] [address] [address] [place] Urea nitrogen [Mass/Vol] 71 mg/dL High 9-24 [facility] Comment on above: Order Comment: Speci men Type: BLOOD SPECIMENOrdering Facility: [facility] Address: [address] [place] [address] Performed By: #### 1 9123-9, 55461-6 ####[facility] LABCLIA [id number] [address] [address] [place] Magnesium SerPl-mCncon 11-25 Magnesium [Mass/Vol] 2.5 mg/dL High 1.7-2.3 [facility] Comment on above: Order Comment: Speci men Type: BLOOD SPECIMENOrdering Facility: [facility] Address: [address] [place], [place] [address] Performed By: #### 1 9123-9, 2777-1, 58934-3 ####[facility] LABIA [id number] [place] [id number] [place] Magnesium [Mass/Vol] 2.6 mg/dL High 1.7-2.3 [facility] Comment on above: Order Comment: Speci men Type: BLOOD SPECIMENOrdering Facility: [facility] Address: [address] [place], [place] [address] Performed By: #### 1 9123-9, 84455-5 ####[facility] LABIA [id number] [place] [id number] [place] Phosphate SerPl-mCncon 11-25 Phosphate [Mass/Vol] 9.4 mg/dL High 2.7-4.8 [facility] Comment on above: Order Comment: Speci men Type: BLOOD SPECIMENOrdering Facility: [facility] Address: [address] [place] [address] Performed By: #### 1 9123-9, 2777-1, 06411-7 ####[facility] LABIA [id number] [place] [id number] [place] XR CHEST 1V FRONTAL PORTon 0 11-25-2024 XR CHEST 1V FRONTAL PORT Normal [facility] APIXABAN ASSAYon 11-24-2024 APIXABAN 36.00 ng/mL Normal [facility] Comment on above: Order Comment: Speci men Type: BLOOD SPECIMENOrdering Facility: [facility] Address: [address] [place] [address] Result Comment: APIX ABAN PEAK AND TROUGH [...] to 572 ng/mLTrough: 41 to 335 ng/mLReference: Rex. CPT Pharmacocetrics Syst Pharmacol. 2017;6(5):340-349. Performed By: #### A PIXBN ####[facility] [id number] [place] [address] [place] ARTERIAL BLOOD GASESon 11-24 Base excess Calc (Bld) [Moles/Vol] 3 mmol/L High 0-2 [facility] Comment on above: Order Comment: Speci men Type: ARTERIAL BLOOD SPECIMENOrdering Facility: [facility] Address: [address] [place] [address] Performed By: #### A LLBG ####[facility] [id number] [place] [address] [place] Body temperature 98.6 [degF] Normal [facility] Comment on above: Order Comment: Speci men Type: ARTERIAL BLOOD SPECIMENOrdering Facility: [facility] Address: [address] [place] [address] Performed By: #### A LLBG ####[facility] [id number] [place] [address] [place] Calcium.ionized (Bld) [Mass/Vol] 1.11 mmol/L Normal 1.08-1.30 [facility] Comment on above: Order Comment: Speci men Type: ARTERIAL BLOOD SPECIMENOrdering Facility: [facility] Address: [address] [place] [address] Performed By: #### A LLBG ####[facility] [id number] [place] [address] [place] Calcium.ionized adjusted to pH 7.4 (BldA) [Moles/Vol] 1.11 mmol/L Normal 1.08-1.30 [facility] Comment on above: Order Comment: Speci men Type: ARTERIAL BLOOD SPECIMENOrdering Facility: [facility] Address: [address] [place] [address] Performed By: #### A LLBG ####[facility] [id number] [place] [address] [place] Carboxyhemoglobin (BldA) [Mass fraction] 1.2 % Normal 0.0-2.0 [facility] Comment on above: Order Comment: Speci men Type: ARTERIAL BLOOD SPECIMENOrdering Facility: [facility] Address: [address] [place] [address] Result Comment: Carb oxyhemoglobin Reference Range for Smokers: 2.0-8.0% Performed By: #### A LLBG ####[facility] [id number] [place] [address] [place] CO2 (Bld) [Partial pressure] 45 mm Hg Normal 36-46 [facility] Comment on above: Order Comment: Speci men Type: ARTERIAL BLOOD SPECIMENOrdering Facility: [facility] Address: [address] [place] [address] Performed By: #### A LLBG ####[facility] LABCLIA [id number] [place] [id number] [place] Glucose [Mass/Vol] 182 mg/dL High 60-105 [facility] Comment on above: Order Comment: Speci men Type: ARTERIAL BLOOD SPECIMENOrdering Facility: [facility] Address: [address] [place] [address] Performed By: #### A LLBG ####[facility] LABCLIA [id number] [place] [address] [place] HCO3 (Bld) [Moles/Vol] 27 mmol/L High 22-26 [facility] Comment on above: Order Comment: Speci men Type: ARTERIAL BLOOD SPECIMENOrdering Facility: [facility] Address: [address] [place] [address] Performed By: #### A LLBG ####[facility] LABCLIA [id number] [place] [address] [place] Hematocrit (Bld) [Volume fraction] 34.6 % Low 39.0-51.0 [facility] Comment on above: Order Comment: Speci men Type: ARTERIAL BLOOD SPECIMENOrdering Facility: [facility] Address: [address] [place] [address] Performed By: #### A LLBG ####[facility] LABCLIA [id number] [place] [address] [place] Hemoglobin (Bld) [Mass/Vol] 11.2 g/dL Low 13.0-17.0 [facility] Comment on above: Order Comment: Speci men Type: ARTERIAL BLOOD SPECIMENOrdering Facility: [facility] Address: [address] [place] [address] Performed By: #### A LLBG ####[facility] LABCLIA [id number] [place] [id number] [place] Lactate [Moles/Vol] 1.1 mmol/L Normal 0.5-2.2 [facility] Comment on above: Order Comment: Speci men Type: ARTERIAL BLOOD SPECIMENOrdering Facility: [facility] Address: [address] [place] [address] Performed By: #### A LLBG ####[facility] LABCLIA [id number] [address] [place] [address] [place] Methemoglobin (Bld) [Mass fraction] 1.3 % Normal 0.0-1.5 [facility] Comment on above: Order Comment: Speci men Type: ARTERIAL BLOOD SPECIMENOrdering Facility: [facility] Address: [address] [place] [id number] Performed By: #### A LLBG ####[facility] LABCLIA [id number] [address], [facility]95 [place] O2 THERAPY RA=Room Air Normal [facility] Comment on above: Order Comment: Speci men Type: ARTERIAL BLOOD SPECIMENOrdering Facility: [facility] Address: [address] [place] [address] Performed By: #### A LLBG ####[facility] LABCLIA [id number] [address], [facility]95 [place] Oxygen (Bld) [Partial pressure] 78 mm Hg Low 85-95 [facility] Comment on above: Order Comment: Speci men Type: ARTERIAL BLOOD SPECIMENOrdering Facility: [facility] Address: [address] [place] [id number] Performed By: #### A LLBG ####[facility] LABCLIA [id number] [address] [place] [address] [place] Oxyhemoglobin (BldA) [Mass fraction] 92 % Low 95-98 [facility] Comment on above: Order Comment: Speci men Type: ARTERIAL BLOOD SPECIMENOrdering Facility: [facility] Address: [address] [place] [id number] Performed By: #### A LLBG ####[facility] LABCLIA [id number] [place] [address] [place] pH (Bld) 7.40 [pH] Normal 7.35-7.45 [facility] Comment on above: Order Comment: Speci men Type: ARTERIAL BLOOD SPECIMENOrdering Facility: [facility] Address: [address] [place] [address] Performed By: #### A LLBG ####[facility] LABCLIA [id number] [place] [address] [place] PO2 / FIO2 RATIO 371 mmHg Normal >300 [facility] Comment on above: Order Comment: Speci men Type: ARTERIAL BLOOD SPECIMENOrdering Facility: [facility] Address: [address] [place] [address] Performed By: #### A LLBG ####[facility] LABCLIA [id number] [place] [address] [place] Potassium [Moles/Vol] 5.0 mmol/L Normal 3.5-5.0 [facility] Comment on above: Order Comment: Speci men Type: ARTERIAL BLOOD SPECIMENOrdering Facility: [facility] Address: [address] [place] [address] Performed By: #### A LLBG ####[facility] LABCLIA [id number] [place] [address] [place] Sodium [Moles/Vol] 132 mmol/L Low 136-144 [facility] Comment on above: Order Comment: Speci men Type: ARTERIAL BLOOD SPECIMENOrdering Facility: [facility] Address: [address] [place] [address] Performed By: #### A LLBG ####[facility] LABIA [id number] [place] [id number] [place] Base excess Calc (Bld) [Moles/Vol] 5 mmol/L High 0-2 [facility] Comment on above: Order Comment: Speci men Type: ARTERIAL BLOOD SPECIMENOrdering Facility: [facility] Address: [address] [place] [address] Performed By: #### A LLBG ####[facility] LABCLIA [id number] [place] [address] [place] Body temperature 98.24 [degF] Normal [facility] Comment on above: Order Comment: Speci men Type: ARTERIAL BLOOD SPECIMENOrdering Facility: [facility] Address: [address] [place] [address] Performed By: #### A LLBG ####[facility] LABIA [id number] [place] [address] [place] Calcium.ionized (Bld) [Mass/Vol] 1.13 mmol/L Normal 1.08-1.30 [facility] Comment on above: Order Comment: Speci men Type: ARTERIAL BLOOD SPECIMENOrdering Facility: [facility] Address: [address] [place] [address] Performed By: #### A LLBG ####[facility] LABIA [id number] [place] [address] [place] Calcium.ionized adjusted to pH 7.4 (BldA) [Moles/Vol] 1.15 mmol/L Normal 1.08-1.30 [facility] Comment on above: Order Comment: Speci men Type: ARTERIAL BLOOD SPECIMENOrdering Facility: [facility] Address: [address] [place] [address] Performed By: #### A LLBG ####[facility] LABIA [id number] [place] [address] [place] Carboxyhemoglobin (BldA) [Mass fraction] 0.6 % Normal 0.0-2.0 [facility] Comment on above: Order Comment: Speci men Type: ARTERIAL BLOOD SPECIMENOrdering Facility: [facility] Address: [address] [place] [address] Result Comment: Carb oxyhemoglobin Reference Range for Smokers: 2.0-8.0% Performed By: #### A LLBG ####[facility] LABCLIA [id number] [place] [id number] [place] CO2 (Bld) [Partial pressure] 45 mm Hg Normal 36-46 [facility] Comment on above: Order Comment: Speci men Type: ARTERIAL BLOOD SPECIMENOrdering Facility: [facility] Address: [address] [place] [address] Performed By: #### A LLBG ####[facility] LABCLIA [id number] [place] [address] [place] CO2 adjusted to patient's actual temperature (Bld) [Partial pressure] 44 mmHg Normal 36-46 [facility] Comment on above: Order Comment: Speci men Type: ARTERIAL BLOOD SPECIMENOrdering Facility: [facility] Address: [address] [place] [address] Performed By: #### A LLBG ####[facility] LABCLIA [id number] [place] [address] [place] Glucose [Mass/Vol] 73 mg/dL Normal 60-105 [facility] Comment on above: Order Comment: Speci men Type: ARTERIAL BLOOD SPECIMENOrdering Facility: [facility] Address: [address] [place] [address] Performed By: #### A LLBG ####[facility] LABCLIA [id number] [place] [id number] [place] HCO3 (Bld) [Moles/Vol] 29 mmol/L High 22-26 [facility] Comment on above: Order Comment: Speci men Type: ARTERIAL BLOOD SPECIMENOrdering Facility: [facility] Address: [address] [place] [address] Performed By: #### A LLBG ####[facility] LABCLIA [id number] [place] [id number] [place] Hematocrit (Bld) [Volume fraction] 34.8 % Low 39.0-51.0 [facility] Comment on above: Order Comment: Speci men Type: ARTERIAL BLOOD SPECIMENOrdering Facility: [facility] Address: [address] [place] [address] Performed By: #### A LLBG ####[facility] LABCLIA [id number] [place] [address] [place] Hemoglobin (Bld) [Mass/Vol] 11.3 g/dL Low 13.0-17.0 [facility] Comment on above: Order Comment: Speci men Type: ARTERIAL BLOOD SPECIMENOrdering Facility: [facility] Address: [address] [place] [address] Performed By: #### A LLBG ####[facility] LABIA [id number] [place] [address] [place] Lactate [Moles/Vol] 0.9 mmol/L Normal 0.5-2.2 [facility] Comment on above: Order Comment: Speci men Type: ARTERIAL BLOOD SPECIMENOrdering Facility: [facility] Address: [address] [place] [address] Performed By: #### A LLBG ####[facility] LABIA [id number] [place] [address] [place] Methemoglobin (Bld) [Mass fraction] 0.5 % Normal 0.0-1.5 [facility] Comment on above: Order Comment: Speci men Type: ARTERIAL BLOOD SPECIMENOrdering Facility: [facility] Address: [address] [place] [address] Performed By: #### A LLBG ####[facility] LABCLIA [id number] [place] [address] [place] O2 THERAPY RA=Room Air Normal [facility] Comment on above: Order Comment: Speci men Type: ARTERIAL BLOOD SPECIMENOrdering Facility: [facility] Address: [address] [place] [address] Performed By: #### A LLBG ####[facility] LABCLIA [id number] [address] [place] [address] [place] Oxygen (Bld) [Partial pressure] 98 mm Hg High 85-95 [facility] Comment on above: Order Comment: Speci men Type: ARTERIAL BLOOD SPECIMENOrdering Facility: [facility] Address: [address] [place] [address] Performed By: #### A LLBG ####[facility] LABCLIA [id number] [address] [place] [address] [place] Oxygen adjusted to patient's actual temperature (Bld) [Partial pressure] 97 mmHg High 85-95 [facility] Comment on above: Order Comment: Speci men Type: ARTERIAL BLOOD SPECIMENOrdering Facility: [facility] Address: [address] [place] [address] Performed By: #### A LLBG ####[facility] LABCLIA [id number] [place] [id number] [place] Oxyhemoglobin (BldA) [Mass fraction] 95 % Normal 95-98 [facility] Comment on above: Order Comment: Speci men Type: ARTERIAL BLOOD SPECIMENOrdering Facility: [facility] Address: [address] [place] [address] Performed By: #### A LLBG ####[facility] LABCLIA [id number] [address] [place] [address] [place] pH (Bld) 7.43 [pH] Normal 7.35-7.45 [facility] Comment on above: Order Comment: Speci men Type: ARTERIAL BLOOD SPECIMENOrdering Facility: [facility] Address: [address] [place], [place] [id number] Performed By: #### A LLBG ####[facility] LABCLIA [id number] [address] [address] [place] pH adjusted to patient's actual temperature (Bld) 7.44 Normal 7.35-7.45 [facility] Comment on above: Order Comment: Speci men Type: ARTERIAL BLOOD SPECIMENOrdering Facility: [facility] Address: [address] [place] [address] Performed By: #### A LLBG ####[facility] LABCLIA [id number] [place] [id number] [place] PO2 / FIO2 RATIO 467 mmHg Normal >300 [facility] Comment on above: Order Comment: Speci men Type: ARTERIAL BLOOD SPECIMENOrdering Facility: [facility] Address: [address] [place] [address] Performed By: #### A LLBG ####[facility] LABCLIA [id number] [place] [address] [place] Potassium [Moles/Vol] 4.5 mmol/L Normal 3.5-5.0 [facility] Comment on above: Order Comment: Speci men Type: ARTERIAL BLOOD SPECIMENOrdering Facility: [facility] Address: [address] [place] [address] Performed By: #### A LLBG ####[facility] LABCLIA [id number] [place] [address] [place] Sodium [Moles/Vol] 135 mmol/L Low 136-144 [facility] Comment on above: Order Comment: Speci men Type: ARTERIAL BLOOD SPECIMENOrdering Facility: [facility] Address: [address] [place] [address] Performed By: #### A LLBG ####[facility] LABCLIA [id number] [place] [id number] [place] Base excess Calc (Bld) [Moles/Vol] 4 mmol/L High 0-2 [facility] Comment on above: Order Comment: Speci men Type: ARTERIAL BLOOD SPECIMENOrdering Facility: [facility] Address: [address] [place], [place] [address] Performed By: #### A LLBG ####[facility] LABCLIA [id number] [place] [id number] [place] Body temperature 98.6 [degF] Normal [facility] Comment on above: Order Comment: Speci men Type: ARTERIAL BLOOD SPECIMENOrdering Facility: [facility] Address: [address] [place] [address] Performed By: #### A LLBG ####[facility] LABCLIA [id number] [place] [address] [place] Calcium.ionized (Bld) [Mass/Vol] 1.12 mmol/L Normal 1.08-1.30 [facility] Comment on above: Order Comment: Speci men Type: ARTERIAL BLOOD SPECIMENOrdering Facility: [facility] Address: [address] [place] [address] Performed By: #### A LLBG ####[facility] LABCLIA [id number] [place] [address] [place] Calcium.ionized adjusted to pH 7.4 (BldA) [Moles/Vol] 1.15 mmol/L Normal 1.08-1.30 [facility] Comment on above: Order Comment: Speci men Type: ARTERIAL BLOOD SPECIMENOrdering Facility: [facility] Address: [address] [place] [address] Performed By: #### A LLBG ####[facility] LABCLIA [id number] [place] [address] [place] Carboxyhemoglobin (BldA) [Mass fraction] 1.0 % Normal 0.0-2.0 [facility] Comment on above: Order Comment: Speci men Type: ARTERIAL BLOOD SPECIMENOrdering Facility: [facility] Address: [address] [place] [address] Result Comment: Carb oxyhemoglobin Reference Range for Smokers: 2.0-8.0% Performed By: #### A LLBG ####[facility] LABCLIA [id number] [place] [address] [place] CO2 (Bld) [Partial pressure] 43 mm Hg Normal 36-46 [facility] Comment on above: Order Comment: Speci men Type: ARTERIAL BLOOD SPECIMENOrdering Facility: [facility] Address: [address] [place] [address] Performed By: #### A LLBG ####[facility] LABCLIA [id number] [address] [address] [place] Glucose [Mass/Vol] 83 mg/dL Normal 60-105 [facility] Comment on above: Order Comment: Speci men Type: ARTERIAL BLOOD SPECIMENOrdering Facility: [facility] Address: [address] [place] [address] Performed By: #### A LLBG ####[facility] LABCLIA [id number] [place] [address] [place] HCO3 (Bld) [Moles/Vol] 29 mmol/L High 22-26 [facility] Comment on above: Order Comment: Speci men Type: ARTERIAL BLOOD SPECIMENOrdering Facility: [facility] Address: [address] [place] [address] Performed By: #### A LLBG ####[facility] LABIA [id number] [place] [address] [place] Hematocrit (Bld) [Volume fraction] 33.1 % Low 39.0-51.0 [facility] Comment on above: Order Comment: Speci men Type: ARTERIAL BLOOD SPECIMENOrdering Facility: [facility] Address: [address] [place] [address] Performed By: #### A LLBG ####[facility] LABCLIA [id number] [place] [id number] [place] Hemoglobin (Bld) [Mass/Vol] 10.7 g/dL Low 13.0-17.0 [facility] Comment on above: Order Comment: Speci men Type: ARTERIAL BLOOD SPECIMENOrdering Facility: [facility] Address: [address] [place] [address] Performed By: #### A LLBG ####[facility] LABCLIA [id number] [address] [place] [address] [place] Lactate [Moles/Vol] 0.8 mmol/L Normal 0.5-2.2 [facility] Comment on above: Order Comment: Speci men Type: ARTERIAL BLOOD SPECIMENOrdering Facility: [facility] Address: [address] [place] [address] Performed By: #### A LLBG ####[facility] LABCLIA [id number] [address] [address] [place] Methemoglobin (Bld) [Mass fraction] 1.6 % High 0.0-1.5 [facility] Comment on above: Order Comment: Speci men Type: ARTERIAL BLOOD SPECIMENOrdering Facility: [facility] Address: [address] [place] [address] Performed By: #### A LLBG ####[facility] LABCLIA [id number] [place] [id number] [place] O2 THERAPY RA=Room Air Normal [facility] Comment on above: Order Comment: Speci men Type: ARTERIAL BLOOD SPECIMENOrdering Facility: [facility] Address: [address] [place] [address] Performed By: #### A LLBG ####[facility] LABCLIA [id number] [address] [address] [place] Oxygen (Bld) [Partial pressure] 94 mm Hg Normal 85-95 [facility] Comment on above: Order Comment: Speci men Type: ARTERIAL BLOOD SPECIMENOrdering Facility: [facility] Address: [address] [place], [place] [id number] Performed By: #### A LLBG ####[facility] LABCLIA [id number] [address] [place] [address] [place] Oxyhemoglobin (BldA) [Mass fraction] 94 % Low 95-98 [facility] Comment on above: Order Comment: Speci men Type: ARTERIAL BLOOD SPECIMENOrdering Facility: [facility] Address: [address] [place] [address] Performed By: #### A LLBG ####[facility] LABCLIA [id number] [place] [id number] [place] pH (Bld) 7.44 [pH] Normal 7.35-7.45 [facility] Comment on above: Order Comment: Speci men Type: ARTERIAL BLOOD SPECIMENOrdering Facility: [facility] Address: [address] [place] [address] Performed By: #### A LLBG ####[facility] LABCLIA [id number] [place] [address] [place] PO2 / FIO2 RATIO 448 mmHg Normal >300 [facility] Comment on above: Order Comment: Speci men Type: ARTERIAL BLOOD SPECIMENOrdering Facility: [facility] Address: [address] [place] [address] Performed By: #### A LLBG ####[facility] LABCLIA [id number] [place] [address] [place] Potassium [Moles/Vol] 4.3 mmol/L Normal 3.5-5.0 [facility] Comment on above: Order Comment: Speci men Type: ARTERIAL BLOOD SPECIMENOrdering Facility: [facility] Address: [address] [place] [address] Performed By: #### A LLBG ####[facility] LABCLIA [id number] [place] [id number] [place] Sodium [Moles/Vol] 134 mmol/L Low 136-144 [facility] Comment on above: Order Comment: Speci men Type: ARTERIAL BLOOD SPECIMENOrdering Facility: [facility] Address: [address] [place] [address] Performed By: #### A LLBG ####[facility] LABCLIA [id number] [place] [address] [place] Base excess Calc (Bld) [Moles/Vol] 5 mmol/L High 0-2 [facility] Comment on above: Order Comment: Speci men Type: ARTERIAL BLOOD SPECIMENOrdering Facility: [facility] Address: [address] [place] [address] Performed By: #### A LLBG ####[facility] LABCLIA [id number] [place] [address] [place] Body temperature 98.6 [degF] Normal [facility] Comment on above: Order Comment: Speci men Type: ARTERIAL BLOOD SPECIMENOrdering Facility: [facility] Address: [address] [place] [address] Performed By: #### A LLBG ####[facility] LABIA [id number] [place] [address] [place] Calcium.ionized (Bld) [Mass/Vol] 1.15 mmol/L Normal 1.08-1.30 [facility] Comment on above: Order Comment: Speci men Type: ARTERIAL BLOOD SPECIMENOrdering Facility: [facility] Address: [address] [place] [address] Performed By: #### A LLBG ####[facility] LABIA [id number] [place] [address] [place] Calcium.ionized adjusted to pH 7.4 (BldA) [Moles/Vol] 1.19 mmol/L Normal 1.08-1.30 [facility] Comment on above: Order Comment: Speci men Type: ARTERIAL BLOOD SPECIMENOrdering Facility: [facility] Address: [address] [place] [address] Performed By: #### A LLBG ####[facility] LABCLIA [id number] [place] [address] [place] Carboxyhemoglobin (BldA) [Mass fraction] 0.2 % Normal 0.0-2.0 [facility] Comment on above: Order Comment: Speci men Type: ARTERIAL BLOOD SPECIMENOrdering Facility: [facility] Address: [address] [place] [address] Result Comment: Carb oxyhemoglobin Reference Range for Smokers: 2.0-8.0% Performed By: #### A LLBG ####[facility] LABCLIA [id number] [place] [address] [place] CO2 (Bld) [Partial pressure] 40 mm Hg Normal 36-46 [facility] Comment on above: Order Comment: Speci men Type: ARTERIAL BLOOD SPECIMENOrdering Facility: [facility] Address: [address] [place] [address] Performed By: #### A LLBG ####[facility] LABCLIA [id number] [place] [address] [place] Glucose [Mass/Vol] 121 mg/dL High 60-105 [facility] Comment on above: Order Comment: Speci men Type: ARTERIAL BLOOD SPECIMENOrdering Facility: [facility] Address: [address] [place] [address] Performed By: #### A LLBG ####[facility] LABCLIA [id number] [place] [address] [place] HCO3 (Bld) [Moles/Vol] 28 mmol/L High 22-26 [facility] Comment on above: Order Comment: Speci men Type: ARTERIAL BLOOD SPECIMENOrdering Facility: [facility] Address: [address] [place] [address] Performed By: #### A LLBG ####[facility] LABCLIA [id number] [place] [address] [place] Hematocrit (Bld) [Volume fraction] 33.3 % Low 39.0-51.0 [facility] Comment on above: Order Comment: Speci men Type: ARTERIAL BLOOD SPECIMENOrdering Facility: [facility] Address: [address] [place] [address] Performed By: #### A LLBG ####[facility] LABCLIA [id number] [address] [address] [place] Hemoglobin (Bld) [Mass/Vol] 10.8 g/dL Low 13.0-17.0 [facility] Comment on above: Order Comment: Speci men Type: ARTERIAL BLOOD SPECIMENOrdering Facility: [facility] Address: [address] [place] [address] Performed By: #### A LLBG ####[facility] LABCLIA [id number] [address] [address] [place] Lactate [Moles/Vol] 1.5 mmol/L Normal 0.5-2.2 [facility] Comment on above: Order Comment: Speci men Type: ARTERIAL BLOOD SPECIMENOrdering Facility: [facility] Address: [address] [place] [address] Performed By: #### A LLBG ####[facility] LABCLIA [id number] [place] [address] [place] Methemoglobin (Bld) [Mass fraction] 0.4 % Normal 0.0-1.5 [facility] Comment on above: Order Comment: Speci men Type: ARTERIAL BLOOD SPECIMENOrdering Facility: [facility] Address: [address] [place] [address] Performed By: #### A LLBG ####[facility] LABCLIA [id number] [place] [id number] [place] O2 THERAPY RA=Room Air Normal [facility] Comment on above: Order Comment: Speci men Type: ARTERIAL BLOOD SPECIMENOrdering Facility: [facility] Address: [address] [place] [address] Performed By: #### A LLBG ####[facility] LABCLIA [id number] [address] [address] [place] Oxygen (Bld) [Partial pressure] 119 mm Hg High 85-95 [facility] Comment on above: Order Comment: Speci men Type: ARTERIAL BLOOD SPECIMENOrdering Facility: [facility] Address: [address] [place] [address] Performed By: #### A LLBG ####[facility] LABCLIA [id number] [address] [address] [place] Oxyhemoglobin (BldA) [Mass fraction] 97 % Normal 95-98 [facility] Comment on above: Order Comment: Speci men Type: ARTERIAL BLOOD SPECIMENOrdering Facility: [facility] Address: [address] [place] [address] Performed By: #### A LLBG ####[facility] LABIA [id number] [place] [address] [place] pH (Bld) 7.47 [pH] High 7.35-7.45 [facility] Comment on above: Order Comment: Speci men Type: ARTERIAL BLOOD SPECIMENOrdering Facility: [facility] Address: [address] [place] [address] Performed By: #### A LLBG ####[facility] LABCLIA [id number] [place] [address] [place] PO2 / FIO2 RATIO 567 mmHg Normal >300 [facility] Comment on above: Order Comment: Speci men Type: ARTERIAL BLOOD SPECIMENOrdering Facility: [facility] Address: [address] [place] [address] Performed By: #### A LLBG ####[facility] LABCLIA [id number] [place] [id number] [place] Potassium [Moles/Vol] 4.0 mmol/L Normal 3.5-5.0 [facility] Comment on above: Order Comment: Speci men Type: ARTERIAL BLOOD SPECIMENOrdering Facility: [facility] Address: [address] [place] [address] Performed By: #### A LLBG ####[facility] LABCLIA [id number] [address] [address] [place] Sodium [Moles/Vol] 134 mmol/L Low 136-144 [facility] Comment on above: Order Comment: Speci men Type: ARTERIAL BLOOD SPECIMENOrdering Facility: [facility] Address: [address] [place] [address] Performed By: #### A LLBG ####[facility] LABCLIA [id number] [address] [address] [place] Basic Metabolic Profile (BMP )on 11-24-2024 BUN Normal 4-19 [facility] Comment on above: Result Comment: Canc elled via OM: MD Ordered Performed By: #### L 500.2500, L100.0100 ####[facility] [address] [place], [address] BUN/CRE Normal 10-20 [facility] Comment on above: Result Comment: Canc elled via OM: MD Ordered Performed By: #### L 500.2500, L100.0100 ####[facility] [address] [place], [address] Calcium Normal 7.6-11.0 [facility] Comment on above: Result Comment: Canc elled via OM: MD Ordered Performed By: #### L 500.2500, L100.0100 ####[facility] [address] [place], [address] CL Normal 98-108 [facility] Comment on above: Result Comment: Canc elled via OM: MD Ordered Performed By: #### L 500.2500, L100.0100 ####[facility] [address] [place], [address] CO2 Normal 21.0-32.0 [facility] Comment on above: Result Comment: Canc elled via OM: MD Ordered Performed By: #### L 500.2500, L100.0100 ####[facility] [address] [place], [address] CREAT,SERUM Normal 0.70-1.20 [facility] Comment on above: Result Comment: Canc elled via OM: MD Ordered Performed By: #### L 500.2500, L100.0100 ####[facility] [address] [place], [address] eGFR Normal >60 [facility] Comment on above: Result Comment: Canc elled via OM: MD Ordered Performed By: #### L 500.2500, L100.0100 ####[facility] [address] [place], [address] GAP Normal 5-15 [facility] Comment on above: Result Comment: Canc elled via OM: MD Ordered Performed By: #### L 500.2500, L100.0100 ####[facility] [address] [place], [address] GLU Normal 70-99 [facility] Comment on above: Result Comment: Canc elled via OM: MD Ordered Performed By: #### L 500.2500, L100.0100 ####[facility] [address] [place], [address] Potassium Normal 3.3-5.1 [facility] Comment on above: Result Comment: Canc elled via OM: MD Ordered Performed By: #### L 500.2500, L100.0100 ####[facility] [address] [place], [address] Basic Metabolic Profile (BMP) Normal 133-145 [facility] Comment on above: Result Comment: Canc elled via OM: MD Ordered Performed By: #### L 500.2500, L100.0100 ####[facility] [address] [place], [address] CBC W/Diff, Automatedon 07-0 5-2024 Absolute Neut Normal 2.0-7.7 [facility] Comment on above: Result Comment: Canc elled via OM: MD Ordered Performed By: #### L 500.2500, L100.0100 ####[facility] [address] [place], [address] HCT Normal 40-54 [facility] Comment on above: Result Comment: Canc elled via OM: MD Ordered Performed By: #### L 500.2500, L100.0100 ####[facility] [address] [place], [address] HGB Normal 13.0-16.5 [facility] Comment on above: Result Comment: Canc elled via OM: MD Ordered Performed By: #### L 500.2500, L100.0100 ####[facility] [address] [place], [address] MCH Normal 27.0-32.0 [facility] Comment on above: Result Comment: Canc elled via OM: MD Ordered Performed By: #### L 500.2500, L100.0100 ####[facility] [address] [place], [address] MCHC Normal 32-36 [facility] Comment on above: Result Comment: Canc elled via OM: MD Ordered Performed By: #### L 500.2500, L100.0100 ####[facility] [address] [place], [address] MCV Normal 80-94 [facility] Comment on above: Result Comment: Canc elled via OM: MD Ordered Performed By: #### L 500.2500, L100.0100 ####[facility] [address] [place], [address] NEUT% Normal 47-70 [facility] Comment on above: Result Comment: Canc elled via OM: MD Ordered Performed By: #### L 500.2500, L100.0100 ####[facility] [address] [place], [address] PLT Normal 150-450 [facility] Comment on above: Result Comment: Canc elled via OM: MD Ordered Performed By: #### L 500.2500, L100.0100 ####[facility] [address] [place], [address] RBC Normal 4.6-6.2 [facility] Comment on above: Result Comment: Canc elled via OM: MD Ordered Performed By: #### L 500.2500, L100.0100 ####[facility] [address] [place], [address] RDW CV Normal 11.6-14.6 [facility] Comment on above: Result Comment: Canc elled via OM: MD Ordered Performed By: #### L 500.2500, L100.0100 ####[facility] [address] [place], [address] RDW SD Normal 35.1-43.9 [facility] Comment on above: Result Comment: Canc elled via OM: MD Ordered Performed By: #### L 500.2500, L100.0100 ####[facility] [address] [place], [address] WBC Normal 4.4-11.0 [facility] Comment on above: Result Comment: Canc elled via OM: MD Ordered Performed By: #### L 500.2500, L100.0100 ####[facility] [address] [place], [address] CBC panel Auto (Bld)on 11-24 Erythrocyte distribution width (RBC) [Ratio] 15.7 % High 11.5-15.0 [facility] Comment on above: Order Comment: Speci men Type: BLOOD SPECIMENOrdering Facility: [facility] Address: [address] [place] [address] Performed By: #### 5 8410-2 ####[facility] LABCLIA [id number] [place] [address] [place] Hematocrit (Bld) [Volume fraction] 32.8 % Low 39.0-51.0 [facility] Comment on above: Order Comment: Speci men Type: BLOOD SPECIMENOrdering Facility: [facility] Address: [address] [place] [address] Performed By: #### 5 8410-2 ####[facility] LABIA [id number] [place] [address] [place] Hemoglobin (Bld) [Mass/Vol] 10.8 g/dL Low 13.0-17.0 [facility] Comment on above: Order Comment: Speci men Type: BLOOD SPECIMENOrdering Facility: [facility] Address: [address] [place] [address] Performed By: #### 5 8410-2 ####[facility] LABIA [id number] [place] [address] [place] MCH (RBC) [Entitic mass] 28.5 pg Normal 26.0-34.0 [facility] Comment on above: Order Comment: Speci men Type: BLOOD SPECIMENOrdering Facility: [facility] Address: [address] [place] [address] Performed By: #### 5 8410-2 ####[facility] LABIA [id number] [place] [address] [place] MCHC (RBC) [Mass/Vol] 32.9 g/dL Normal 30.5-36.0 [facility] Comment on above: Order Comment: Speci men Type: BLOOD SPECIMENOrdering Facility: [facility] Address: [address] [place] [address] Performed By: #### 5 8410-2 ####[facility] LABIA [id number] [place] [address] [place] MCV (RBC) [Entitic vol] 86.5 fL Normal 80.0-100.0 [facility] Comment on above: Order Comment: Speci men Type: BLOOD SPECIMENOrdering Facility: [facility] Address: [address] [place] [address] Performed By: #### 5 8410-2 ####[facility] LABCLIA [id number] [place] [address] [place] Nucleated RBC (Bld) [#/Vol] 10*3/uL Normal <0.01 [facility] Comment on above: Order Comment: Speci men Type: BLOOD SPECIMENOrdering Facility: [facility] Address: [address] [place] [address] Performed By: #### 5 8410-2 ####[facility] LABIA [id number] [place] [address] [place] Platelet mean volume (Bld) [Entitic vol] 11.5 fL Normal 9.0-12.7 [facility] Comment on above: Order Comment: Speci men Type: BLOOD SPECIMENOrdering Facility: [facility] Address: [address] [place] [address] Performed By: #### 5 8410-2 ####[facility] LABIA [id number] [place] [address] [place] Platelets (Bld) [#/Vol] 152 10*3/uL Normal 150-400 [facility] Comment on above: Order Comment: Speci men Type: BLOOD SPECIMENOrdering Facility: [facility] Address: [address] [place] [address] Performed By: #### 5 8410-2 ####[facility] LABIA [id number] [place] [address] [place] RBC (Bld) [#/Vol] 3.79 10*6/uL Low 4.20-6.00 [facility] Comment on above: Order Comment: Speci men Type: BLOOD SPECIMENOrdering Facility: [facility] Address: [address] [place] [address] Performed By: #### 5 8410-2 ####[facility] LABCLIA [id number] [place] [address] [place] WBC (Bld) [#/Vol] 8.79 10*3/uL Normal 3.70-11.00 [facility] Comment on above: Order Comment: Speci men Type: BLOOD SPECIMENOrdering Facility: [facility] Address: [address] [place] [address] Performed By: #### 5 8410-2 ####[facility] LABIA [id number] [place] [address] [facility] [place] Comprehensive metabolic 2000 panelon 11-24-2024 Albumin [Mass/Vol] 3.3 g/dL Low 3.9-4.9 [facility] Comment on above: Order Comment: Speci men Type: BLOOD SPECIMENOrdering Facility: [facility] Address: [address] [place] [address] Performed By: #### 1 9123-9, 77753-7, 2777-1 ####[facility] LABIA [id number] [place] [address] [place] ALP [Catalytic activity/Vol] 64 U/L Normal 38-113 [facility] Comment on above: Order Comment: Speci men Type: BLOOD SPECIMENOrdering Facility: [facility] Address: [address] [place] [address] Performed By: #### 1 9123-9, 21763-2, 2777-1 ####[facility] LABIA [id number] [place] [id number] [place] ALT [Catalytic activity/Vol] 35 U/L Normal 10-54 [facility] Comment on above: Order Comment: Speci men Type: BLOOD SPECIMENOrdering Facility: [facility] Address: [address] [place] [address] Performed By: #### 1 9123-9, 55863-4, 2777-1 ####[facility] LABCLIA [id number] [address] [address] [place] Anion gap [Moles/Vol] 16 mmol/L High 8-15 [facility] Comment on above: Order Comment: Speci men Type: BLOOD SPECIMENOrdering Facility: [facility] Address: [address] [place] [address] Performed By: #### 1 9123-9, 72925-5, 2776-05 ####[facility] LABCLIA [id number] [place] [id number] [place] AST [Catalytic activity/Vol] 14 U/L Normal 14-40 [facility] Comment on above: Order Comment: Speci men Type: BLOOD SPECIMENOrdering Facility: [facility] Address: [address] [place] [address] Performed By: #### 1 9123-9, 16804-4, 2776-05 ####[facility] LABCLIA [id number] [place] [id number] [place] Bilirubin [Mass/Vol] 0.2 mg/dL Normal 0.2-1.3 [facility] Comment on above: Order Comment: Speci men Type: BLOOD SPECIMENOrdering Facility: [facility] Address: [address] [place] [address] Performed By: #### 1 9123-9, 32729-0, 2776-05 ####[facility] LABCLIA [id number] [place] [id number] [place] Calcium [Mass/Vol] 9.1 mg/dL Normal 8.5-10.2 [facility] Comment on above: Order Comment: Speci men Type: BLOOD SPECIMENOrdering Facility: [facility] Address: [address] [place], [place] [address] Performed By: #### 1 9123-9, 88489-5, 277- ####[facility] LABCLIA [id number] [place] [address] [place] Chloride [Moles/Vol] 93 mmol/L Low 98-107 [facility] Comment on above: Order Comment: Speci men Type: BLOOD SPECIMENOrdering Facility: [facility] Address: [address] [place] [address] Performed By: #### 1 9123-9, 30887-7, 2777-1 ####[facility] LABIA [id number] [place] [address] [place] CO2 [Moles/Vol] 27 mmol/L Normal 22-30 [facility] Comment on above: Order Comment: Speci men Type: BLOOD SPECIMENOrdering Facility: [facility] Address: [address] [place] [address] Performed By: #### 1 9123-9, 90163-6, 2777-1 ####[facility] [id number] [place] [address] [place] Creatinine [Mass/Vol] 4.46 mg/dL High 0.73-1.22 [facility] Comment on above: Order Comment: Speci men Type: BLOOD SPECIMENOrdering Facility: [facility] Address: [address] [place] [address] Performed By: #### 1 9123-9, 86105-2, 2777-1 ####[facility] [id number] [place] [address] [place] Creatinine and Glomerular filtration rate.predicted panel (S/P/Bld) 12 mL/min/1.73m??? Low >=60 [facility] Comment on above: Order Comment: Speci men Type: BLOOD SPECIMENOrdering Facility: [facility] Address: [address] [place] [address] Result Comment: Tessa mated Glomerular Filtration Rate [...] reflect actual GFR. Performed By: #### 1 23-9, , 2776-05 ####[facility] LABCLIA [id number] [facility] [place] [address] [place] Glucose [Mass/Vol] 118 mg/dL High 74-99 [facility] Comment on above: Order Comment: Speclena aleman Type: BLOOD SPECIMENOrdering Facility: [facility] Address: [address] [place] [address] Result Comment: The [place] [employer] (ADA) provides guidance for cutoff [...] Standards of Medical Care in Diabetes 2016, [place] [employer]. Diabetes Care. 2016.39(Suppl 1). Performed By: #### 1 9123-9, , 2776-05 ####[facility] LABCLIA [id number] [facility]ALE[facility] [address] [address] [place] Potassium [Moles/Vol] 4.2 mmol/L Normal 3.7-5.1 [facility] Comment on above: Order Comment: Lesvia aleman Type: BLOOD SPECIMENOrdering Facility: [facility] Address: [address] [place] [address] Performed By: #### 1 23-9, , 2776-05 ####[facility] LABCLIA [id number] [facility] [place] [place] [address] [place] Protein [Mass/Vol] 6.2 g/dL Low 6.3-8.0 [facility] Comment on above: Order Comment: Speci men Type: BLOOD SPECIMENOrdering Facility: [facility] Address: [address] [place] [address] Performed By: #### 1 9123-9, 62773-1, 2777-1 ####[facility] LABCLIA [id number] [place] [address] [place] Sodium [Moles/Vol] 136 mmol/L Normal 136-144 [facility] Comment on above: Order Comment: Speci men Type: BLOOD SPECIMENOrdering Facility: [facility] Address: [address] [place] [address] Performed By: #### 1 9123-9, 04152-4, 2777-1 ####[facility] LABCLIA [id number] [place] [address] [place] Urea nitrogen [Mass/Vol] 49 mg/dL High 9-24 [facility] Comment on above: Order Comment: Speci men Type: BLOOD SPECIMENOrdering Facility: [facility] Address: [address] [place] [address] Performed By: #### 1 9123-9, 98887-0, 2777-1 ####[facility] LABIA [id number] [place] [id number] [place] Gas and Carbon monoxide pane l (BldV)on 11-24-2024 BASE DEFICIT, VENOUS Normal [facility] Comment on above: Order Comment: Speci men Type: VENOUS BLOOD SPECIMENOrdering Facility: [facility] Address: [address] [place] [address] Result Comment: Vj brown RN Canceled by Clinician Performed By: #### 2 4344-4 ####[facility] LABCLIA [id number] [address] [address] [place] Base excess Calc (BldV) [Moles/Vol] Normal 0-2 [facility] Comment on above: Order Comment: Speci men Type: VENOUS BLOOD SPECIMENOrdering Facility: [facility] Address: [address] [place] [address] Result Comment: Vj brown RN Canceled by ClinicianCorrected result: Previously reported as 4 mmol/L on 11/24/2024 at 7:44 AM EDT. Performed By: #### 2 4344-4 ####[facility] LABIA [id number] [place] [address] [place] Calcium.ionized (Bld) [Mass/Vol] Normal 1.08-1.30 [facility] Comment on above: Order Comment: Speci men Type: VENOUS BLOOD SPECIMENOrdering Facility: [facility] Address: [address] [place] [address] Result Comment: Vj brown RN Canceled by ClinicianCorrected result: Previously reported as 1.14 mmol/L on 11/24/2024 at 7:44 AM EDT. Performed By: #### 2 4344-4 ####[facility] LABIA [id number] [place] [address] [place] Calcium.ionized adjusted to pH 7.4 (BldA) [Moles/Vol] Normal 1.08-1.30 [facility] Comment on above: Order Comment: Speci men Type: VENOUS BLOOD SPECIMENOrdering Facility: [facility] Address: [address] [place] [address] Result Comment: Vj brown RN Canceled by ClinicianCorrected result: Previously reported as 1.15 mmol/L on 11/24/2024 at 7:44 AM EDT. Performed By: #### 2 4344-4 ####[facility] LABIA [id number] [place] [address] [place] Carboxyhemoglobin (BldV) [Mass fraction] Normal 0.0-2.0 [facility] Comment on above: Order Comment: Speci men Type: VENOUS BLOOD SPECIMENOrdering Facility: [facility] Address: [address] [place] [address] Result Comment: Vj brown RN Canceled by ClinicianCorrected result: Previously reported as 1.2 % on 11/24/2024 at 7:44 AM EDT. Performed By: #### 2 4344-4 ####[facility] LABCLIA [id number] [address] [place] CO2 (BldV) [Partial pressure] Normal 42-55 [facility] Comment on above: Order Comment: Speci men Type: VENOUS BLOOD SPECIMENOrdering Facility: [facility] Address: [address] [place] [address] Result Comment: Vj brown RN Canceled by ClinicianCorrected result: Previously reported as 46 mmHg on 11/24/2024 at 7:44 AM EDT. Performed By: #### 2 4344-4 ####[facility] LABCLIA [id number] [address] CO2 adjusted to patient's actual temperature (BldV) [Partial pressure] Normal 42-55 [facility] Comment on above: Order Comment: Speci men Type: VENOUS BLOOD SPECIMENOrdering Facility: [facility] Address: [address] [place] [address] Result Comment: Vj brown RN Canceled by ClinicianCorrected result: Previously reported as 46 mmHg on 11/24/2024 at 7:44 AM EDT. Performed By: #### 2 4344-4 ####[facility] LABIA [id number] [place] [id number] [place] Glucose [Mass/Vol] Normal 60-105 [facility] Comment on above: Order Comment: Speci men Type: VENOUS BLOOD SPECIMENOrdering Facility: [facility] Address: [address] [place] [address] Result Comment: Vj brown RN Canceled by ClinicianCorrected result: Previously reported as 78 mg/dL on 11/24/2024 at 7:44 AM EDT. Performed By: #### 2 4344-4 ####[facility] LABCLIA [id number] [address] [address] [place] HCO3 (Bld) [Moles/Vol] Normal 24-28 [facility] Comment on above: Order Comment: Speci men Type: VENOUS BLOOD SPECIMENOrdering Facility: [facility] Address: [address] [place] [address] Result Comment: Vj brown RN Canceled by ClinicianCorrected result: Previously reported as 29 mmol/L on 11/24/2024 at 7:44 AM EDT. Performed By: #### 2 4344-4 ####[facility] LABIA [id number] [address] Hematocrit (Bld) [Volume fraction] Normal 39.0-51.0 [facility] Comment on above: Order Comment: Speci men Type: VENOUS BLOOD SPECIMENOrdering Facility: [facility] Address: [address] [place] [address] Result Comment: Vj brown RN Canceled by ClinicianCorrected result: Previously reported as 34.7 % on 11/24/2024 at 7:44 AM EDT. Performed By: #### 2 4344-4 ####[facility] LABIA [id number] [address] [address] [place] Hemoglobin (Bld) [Mass/Vol] Normal 13.0-17.0 [facility] Comment on above: Order Comment: Speci men Type: VENOUS BLOOD SPECIMENOrdering Facility: [facility] Address: [address] [place] [address] Result Comment: Vj brown RN Canceled by ClinicianCorrected result: Previously reported as 11.2 g/dL on 11/24/2024 at 7:44 AM EDT. Performed By: #### 2 4344-4 ####[facility] LABIA [id number] [address] [place] [address] [place] Lactate [Moles/Vol] Normal 0.5-2.2 [facility] Comment on above: Order Comment: Speci men Type: VENOUS BLOOD SPECIMENOrdering Facility: [facility] Address: [address] [place] [address] Result Comment: Vj brown RN Canceled by ClinicianCorrected result: Previously reported as 0.9 mmol/L on 11/24/2024 at 7:44 AM EDT. Performed By: #### 2 4344-4 ####[facility] LABCLIA [id number] [place] [address] [place] Methemoglobin (Bld) [Mass fraction] Normal 0.0-1.5 [facility] Comment on above: Order Comment: Speci men Type: VENOUS BLOOD SPECIMENOrdering Facility: [facility] Address: [address] [place] [address] Result Comment: Vj brown RN Canceled by ClinicianCorrected result: Previously reported as 1.0 % on 11/24/2024 at 7:44 AM EDT. Performed By: #### 2 4344-4 ####[facility] LABIA [id number] [address] [place] O2 THERAPY RA=Room Air Normal [facility] Comment on above: Order Comment: Speci men Type: VENOUS BLOOD SPECIMENOrdering Facility: [facility] Address: [address] [place] [address] Performed By: #### 2 4344-4 ####[facility] LABIA [id number] [place] [id number] [place] Oxygen (BldV) [Partial pressure] Normal 35-45 [facility] Comment on above: Order Comment: Speci men Type: VENOUS BLOOD SPECIMENOrdering Facility: [facility] Address: [address] [place] [address] Result Comment: Vj brown RN Canceled by ClinicianCorrected result: Previously reported as 85 mmHg on 11/24/2024 at 7:44 AM EDT. Performed By: #### 2 4344-4 ####[facility] LABCLIA [id number] [address] [address] [place] Oxygen adjusted to patient's actual temperature (BldV) [Partial pressure] Normal 35-45 [facility] Comment on above: Order Comment: Speci men Type: VENOUS BLOOD SPECIMENOrdering Facility: [facility] Address: [address] [place], [place] [address] Result Comment: Vj brown RN Canceled by ClinicianCorrected result: Previously reported as 84 mmHg on 11/24/2024 at 7:44 AM EDT. Performed By: #### 2 4344-4 ####[facility] LABCLIA [id number] [address] [address] [place] [facility] Oxygen saturation in Venous blood Normal 60-85 [facility] Comment on above: Order Comment: Speci men Type: VENOUS BLOOD SPECIMENOrdering Facility: [facility] Address: [address] [place] [address] Result Comment: Vj brown RN Canceled by ClinicianCorrected result: Previously reported as 96 % on 11/24/2024 at 7:44 AM EDT. Performed By: #### 2 4344-4 ####[facility] LABCLIA [id number] [address] [address] [place] Oxyhemoglobin (BldV) [Mass fraction] Normal 60-85 [facility] Comment on above: Order Comment: Speci men Type: VENOUS BLOOD SPECIMENOrdering Facility: [facility] Address: [address] [place], [place] [id number] Result Comment: Vj brown RN Canceled by ClinicianCorrected result: Previously reported as 94 % on 11/24/2024 at 7:44 AM EDT. Performed By: #### 2 4344-4 ####[facility] LABCLIA [id number] [address] [place] [address] [place] pH (BldV) Normal 7.32-7.42 [facility] Comment on above: Order Comment: Speci men Type: VENOUS BLOOD SPECIMENOrdering Facility: [facility] Address: [address] [place] [address] Result Comment: Vj brown RN Canceled by ClinicianCorrected result: Previously reported as 7.42 on 11/24/2024 at 7:44 AM EDT. Performed By: #### 2 4344-4 ####[facility] LABIA [id number] [place] [address] [place] pH adjusted to patient's actual temperature (BldV) Normal 7.32-7.42 [facility] Comment on above: Order Comment: Speci men Type: VENOUS BLOOD SPECIMENOrdering Facility: [facility] Address: [address] [place] [address] Result Comment: Vj brown RN Canceled by ClinicianCorrected result: Previously reported as 7.42 on 11/24/2024 at 7:44 AM EDT. Performed By: #### 2 4344-4 ####[facility] LABIA [id number] [place] [address] [place] Potassium [Moles/Vol] Normal 3.5-5.0 [facility] Comment on above: Order Comment: Speci men Type: VENOUS BLOOD SPECIMENOrdering Facility: [facility] Address: [address] [place] [address] Result Comment: Vj brown RN Canceled by ClinicianCorrected result: Previously reported as 4.4 mmol/L on 11/24/2024 at 7:44 AM EDT. Performed By: #### 2 4344-4 ####[facility] LABIA [id number] [place] [id number] [place] Sodium [Moles/Vol] Normal 136-144 [facility] Comment on above: Order Comment: Speci men Type: VENOUS BLOOD SPECIMENOrdering Facility: [facility] Address: [address] [place] [address] Result Comment: Vj brown RN Canceled by ClinicianCorrected result: Previously reported as 134 mmol/L on 11/24/2024 at 7:44 AM EDT. Performed By: #### 2 4344-4 ####[facility] LABCLIA [id number] [place] [id number] [place] TEMPERATURE, BODY Normal [facility] Comment on above: Order Comment: Speci men Type: VENOUS BLOOD SPECIMENOrdering Facility: [facility] Address: [address] [place] [address] Result Comment: Vj brown RN Canceled by ClinicianCorrected result: Previously reported as 36.9 C on 11/24/2024 at 7:44 AM EDT. Performed By: #### 2 4344-4 ####[facility] LABCLIA [id number] [place] [address] [place] Magnesium [facility] 11-24 Magnesium [Mass/Vol] 2.2 mg/dL Normal 1.7-2.3 [facility] Comment on above: Order Comment: Speci men Type: BLOOD SPECIMENOrdering Facility: [facility] Address: [address] [place] [address] Performed By: #### 1 9123-9, 06061-1, 2777-1 ####[facility] LABCLIA [id number] [place] [address] [place] Phosphate SerPl-mCncon 11-24 Phosphate [Mass/Vol] 6.3 mg/dL High 2.7-4.8 [facility] Comment on above: Order Comment: Speci men Type: BLOOD SPECIMENOrdering Facility: [facility] Address: [address] [place] [address] Performed By: #### 1 9123-9, 20665-9, 2777-1 ####[facility] LABCLIA [id number] [address] [place] THERAPY NTon 11-24-2024 THERAPY NT Normal [facility] aPTT PPPon 11-24-2024 aPTT Coag (PPP) [Time] 32.9 s High 23.0-32.4 [facility] Comment on above: Order Comment: Speci men Type: BLOOD SPECIMENOrdering Facility: [facility] Address: [address] [place] [address] Performed By: #### 1 4979-9 ####[facility] LABCLIA [id number] [address] [place] ARTERIAL BLOOD GASESon 11-23 Base excess Calc (Bld) [Moles/Vol] 7 mmol/L High 0-2 [facility] Comment on above: Order Comment: Speci men Type: ARTERIAL BLOOD SPECIMENOrdering Facility: [facility] Address: [address] [place] [address] Performed By: #### A LLBG ####[facility] LABIA [id number] [address] [place] Body temperature 97.7 [degF] Normal [facility] Comment on above: Order Comment: Speci men Type: ARTERIAL BLOOD SPECIMENOrdering Facility: [facility] Address: [address] [place] [address] Performed By: #### A LLBG ####[facility] LABIA [id number] [address] [place] Calcium.ionized (Bld) [Mass/Vol] 1.06 mmol/L Low 1.08-1.30 [facility] Comment on above: Order Comment: Speci men Type: ARTERIAL BLOOD SPECIMENOrdering Facility: [facility] Address: [address] [place] [address] Performed By: #### A LLBG ####[facility] LABIA [id number] [place] [address] [place] Calcium.ionized adjusted to pH 7.4 (BldA) [Moles/Vol] 1.11 mmol/L Normal 1.08-1.30 [facility] Comment on above: Order Comment: Speci men Type: ARTERIAL BLOOD SPECIMENOrdering Facility: [facility] Address: [address] [place] [address] Performed By: #### A LLBG ####[facility] LABCLIA [id number] [place] [address] [place] Carboxyhemoglobin (BldA) [Mass fraction] 0.5 % Normal 0.0-2.0 [facility] Comment on above: Order Comment: Speci men Type: ARTERIAL BLOOD SPECIMENOrdering Facility: [facility] Address: [address] [place] [address] Result Comment: Carb oxyhemoglobin Reference Range for Smokers: 2.0-8.0% Performed By: #### A LLBG ####[facility] LABCLIA [id number] [place] [address] [place] CO2 (Bld) [Partial pressure] 39 mm Hg Normal 36-46 [facility] Comment on above: Order Comment: Speci men Type: ARTERIAL BLOOD SPECIMENOrdering Facility: [facility] Address: [address] [place] [address] Performed By: #### A LLBG ####[facility] LABCLIA [id number] [place] [address] [place] CO2 adjusted to patient's actual temperature (Bld) [Partial pressure] 38 mmHg Normal 36-46 [facility] Comment on above: Order Comment: Speci men Type: ARTERIAL BLOOD SPECIMENOrdering Facility: [facility] Address: [address] [place] [address] Performed By: #### A LLBG ####[facility] LABCLIA [id number] [place] [address] [place] Glucose [Mass/Vol] 144 mg/dL High 60-105 [facility] Comment on above: Order Comment: Speci men Type: ARTERIAL BLOOD SPECIMENOrdering Facility: [facility] Address: [address] [place] [address] Performed By: #### A LLBG ####[facility] LABCLIA [id number] [place] [address] [place] HCO3 (Bld) [Moles/Vol] 30 mmol/L High 22-26 [facility] Comment on above: Order Comment: Speci men Type: ARTERIAL BLOOD SPECIMENOrdering Facility: [facility] Address: [address] [place] [address] Performed By: #### A LLBG ####[facility] LABCLIA [id number] [place] [address] [place] Hematocrit (Bld) [Volume fraction] 34.1 % Low 39.0-51.0 [facility] Comment on above: Order Comment: Speci men Type: ARTERIAL BLOOD SPECIMENOrdering Facility: [facility] Address: [address] [place] [address] Performed By: #### A LLBG ####[facility] LABCLIA [id number] [place] [address] [place] Hemoglobin (Bld) [Mass/Vol] 11.1 g/dL Low 13.0-17.0 [facility] Comment on above: Order Comment: Speci men Type: ARTERIAL BLOOD SPECIMENOrdering Facility: [facility] Address: [address] [place] [address] Performed By: #### A LLBG ####[facility] LABCLIA [id number] [place] [address] [place] Lactate [Moles/Vol] 1.5 mmol/L Normal 0.5-2.2 [facility] Comment on above: Order Comment: Speci men Type: ARTERIAL BLOOD SPECIMENOrdering Facility: [facility] Address: [address] [place] [address] Performed By: #### A LLBG ####[facility] LABCLIA [id number] [address] [place] [address] [place] Methemoglobin (Bld) [Mass fraction] 1.2 % Normal 0.0-1.5 [facility] Comment on above: Order Comment: Speci men Type: ARTERIAL BLOOD SPECIMENOrdering Facility: [facility] Address: [address] [place] [address] Performed By: #### A LLBG ####[facility] LABCLIA [id number] [address] [address] [place] O2 THERAPY RA=Room Air Normal [facility] Comment on above: Order Comment: Speci men Type: ARTERIAL BLOOD SPECIMENOrdering Facility: [facility] Address: [address] [place] [address] Performed By: #### A LLBG ####[facility] LABCLIA [id number] [address] [address] [place] Oxygen (Bld) [Partial pressure] 105 mm Hg High 85-95 [facility] Comment on above: Order Comment: Speci men Type: ARTERIAL BLOOD SPECIMENOrdering Facility: [facility] Address: [address] [place] [address] Performed By: #### A LLBG ####[facility] LABCLIA [id number] [address] [address] [place] Oxygen adjusted to patient's actual temperature (Bld) [Partial pressure] 102 mmHg High 85-95 [facility] Comment on above: Order Comment: Speci men Type: ARTERIAL BLOOD SPECIMENOrdering Facility: [facility] Address: [address] [place] [address] Performed By: #### A LLBG ####[facility] LABCLIA [id number] [address] [address] [place] Oxyhemoglobin (BldA) [Mass fraction] 95 % Normal 95-98 [facility] Comment on above: Order Comment: Speci men Type: ARTERIAL BLOOD SPECIMENOrdering Facility: [facility] Address: [address] [place] [address] Performed By: #### A LLBG ####[facility] LABCLIA [id number] [place] [address] [place] pH (Bld) 7.50 [pH] High 7.35-7.45 [facility] Comment on above: Order Comment: Speci men Type: ARTERIAL BLOOD SPECIMENOrdering Facility: [facility] Address: [address] [place] [address] Performed By: #### A LLBG ####[facility] LABCLIA [id number] [place] [address] [place] pH adjusted to patient's actual temperature (Bld) 7.51 High 7.35-7.45 [facility] Comment on above: Order Comment: Speci men Type: ARTERIAL BLOOD SPECIMENOrdering Facility: [facility] Address: [address] [place] [address] Performed By: #### A LLBG ####[facility] LABIA [id number] [place] [address] [place] [facility] PO2 / FIO2 RATIO 500 mmHg Normal >300 [facility] Comment on above: Order Comment: Speci men Type: ARTERIAL BLOOD SPECIMENOrdering Facility: [facility] Address: [address] [place] [address] Performed By: #### A LLBG ####[facility] LABCLIA [id number] [place] [id number] [place] Potassium [Moles/Vol] 3.8 mmol/L Normal 3.5-5.0 [facility] Comment on above: Order Comment: Speci men Type: ARTERIAL BLOOD SPECIMENOrdering Facility: [facility] Address: [address] [place] [address] Performed By: #### A LLBG ####[facility] LABCLIA [id number] [place] [id number] [place] Sodium [Moles/Vol] 133 mmol/L Low 136-144 [facility] Comment on above: Order Comment: Speci men Type: ARTERIAL BLOOD SPECIMENOrdering Facility: [facility] Address: [address] [place] [address] Performed By: #### A LLBG ####[facility] LABCLIA [id number] [address] [place] BUN p dialysis SerPl-mCncon 11-23-2024 Urea nitrogen post dialysis [Mass/Vol] 34 mg/dL High 9-24 [facility] Comment on above: Order Comment: Speci men Type: BLOOD SPECIMENOrdering Facility: [facility] Address: [address] [place] [address] Performed By: #### 1 1064-3 ####[facility] LABCLIA [id number] [address] [place] BUN pre dial SerPl-mCncon Urea nitrogen pre dialysis [Mass/Vol] 103 mg/dL High 02-13 [facility] Comment on above: Order Comment: Speci men Type: BLOOD SPECIMENOrdering Facility: [facility] Address: [address] [place] [address] Performed By: #### 1 1065-0, 3024-7, 3016-3 ####[facility] LABCLIA [id number] [place] [address] [place] Basic Metabolic Profile (BMP )on 11-23-2024 BUN Normal 4-19 [facility] Comment on above: Result Comment: Canc elled via OM: MD Ordered Performed By: #### L 500.2500, L100.0100 ####[facility] [address] [place], [address] BUN/CRE Normal 10-20 [facility] Comment on above: Result Comment: Canc elled via OM: MD Ordered Performed By: #### L 500.2500, L100.0100 ####[facility] [address] [place], [address] Calcium Normal 7.6-11.0 [facility] Comment on above: Result Comment: Canc elled via OM: MD Ordered Performed By: #### L 500.2500, L100.0100 ####[facility] [address] [place], [address] CL Normal 98-108 [facility] Comment on above: Result Comment: Canc elled via OM: MD Ordered Performed By: #### L 500.2500, L100.0100 ####[facility] [address] [place], [address] CO2 Normal 21.0-32.0 [facility] Comment on above: Result Comment: Canc elled via OM: MD Ordered Performed By: #### L 500.2500, L100.0100 ####[facility] [address] [place], [address] CREAT,SERUM Normal 0.70-1.20 [facility] Comment on above: Result Comment: Canc elled via OM: MD Ordered Performed By: #### L 500.2500, L100.0100 ####[facility] [address] [place], [address] eGFR Normal >60 [facility] Comment on above: Result Comment: Canc elled via OM: MD Ordered Performed By: #### L 500.2500, L100.0100 ####[facility] [address] [place], [address] GAP Normal 5-15 [facility] Comment on above: Result Comment: Canc elled via OM: MD Ordered Performed By: #### L 500.2500, L100.0100 ####[facility] [address] [place], [address] GLU Normal 70-99 [facility] Comment on above: Result Comment: Canc elled via OM: MD Ordered Performed By: #### L 500.2500, L100.0100 ####[facility] [address] [place], [address] Potassium Normal 3.3-5.1 [facility] Comment on above: Result Comment: Canc elled via OM: MD Ordered Performed By: #### L 500.2500, L100.0100 ####[facility] [address] [place], [address] Basic Metabolic Profile (BMP) Normal 133-145 [facility] Comment on above: Result Comment: Canc elled via OM: MD Ordered Performed By: #### L 500.2500, L100.0100 ####[facility] [address] [place], [address] CBC W/Diff, Automatedon 07-0 -2024 Absolute Neut Normal 2.0-7.7 [facility] Comment on above: Result Comment: Canc elled via OM: MD Ordered Performed By: #### L 500.2500, L100.0100 ####[facility] [address] [place], [address] HCT Normal 40-54 [facility] Comment on above: Result Comment: Canc elled via OM: MD Ordered Performed By: #### L 500.2500, L100.0100 ####[facility] [address] [place], [address] HGB Normal 13.0-16.5 [facility] Comment on above: Result Comment: Canc elled via OM: MD Ordered Performed By: #### L 500.2500, L100.0100 ####[facility] [address] [place], [address] MCH Normal 27.0-32.0 [facility] Comment on above: Result Comment: Canc elled via OM: MD Ordered Performed By: #### L 500.2500, L100.0100 ####[facility] [address] [place], [address] MCHC Normal 32-36 [facility] Comment on above: Result Comment: Canc elled via OM: MD Ordered Performed By: #### L 500.2500, L100.0100 ####[facility] [address] [place], [address] MCV Normal 80-94 [facility] Comment on above: Result Comment: Canc elled via OM: MD Ordered Performed By: #### L 500.2500, L100.0100 ####[facility] [address] [place], [address] NEUT% Normal 47-70 [facility] Comment on above: Result Comment: Canc elled via OM: MD Ordered Performed By: #### L 500.2500, L100.0100 ####[facility] [address] [place], [address] PLT Normal 150-450 [facility] Comment on above: Result Comment: Canc elled via OM: MD Ordered Performed By: #### L 500.2500, L100.0100 ####[facility] [address] [place], [address] RBC Normal 4.6-6.2 [facility] Comment on above: Result Comment: Canc elled via OM: MD Ordered Performed By: #### L 500.2500, L100.0100 ####[facility] [address] [place], [address] RDW CV Normal 11.6-14.6 [facility] Comment on above: Result Comment: Canc elled via OM: MD Ordered Performed By: #### L 500.2500, L100.0100 ####[facility] [address] [place], [address] RDW SD Normal 35.1-43.9 [facility] Comment on above: Result Comment: Canc elled via OM: MD Ordered Performed By: #### L 500.2500, L100.0100 ####[facility] [address] [place], [address] WBC Normal 4.4-11.0 [facility] Comment on above: Result Comment: Canc elled via OM: MD Ordered Performed By: #### L 500.2500, L100.0100 ####[facility] [address] [place], [address] CBC panel Auto (Bld)on 11-23 Erythrocyte distribution width (RBC) [Ratio] 16.1 % High 11.5-15.0 [facility] Comment on above: Order Comment: Speci men Type: BLOOD SPECIMENOrdering Facility: [facility] Address: [address] [place] [address] Performed By: #### 5 5454-3, 68247-9 ####[facility] LABCLIA [id number] [place] [address] [place] Hematocrit (Bld) [Volume fraction] 33.7 % Low 39.0-51.0 [facility] Comment on above: Order Comment: Speci men Type: BLOOD SPECIMENOrdering Facility: [facility] Address: [address] [place] [address] Performed By: #### 5 5454-3, 46034-2 ####[facility] LABCLIA [id number] [place] [id number] [place] Hemoglobin (Bld) [Mass/Vol] 10.6 g/dL Low 13.0-17.0 [facility] Comment on above: Order Comment: Speci men Type: BLOOD SPECIMENOrdering Facility: [facility] Address: [address] [place] [address] Performed By: #### 5 5454-3, 70646-0 ####[facility] LABCLIA [id number] [place] MCH (RBC) [Entitic mass] 28.0 pg Normal 26.0-34.0 [facility] Comment on above: Order Comment: Speci men Type: BLOOD SPECIMENOrdering Facility: [facility] Address: [address] [place] [address] Performed By: #### 5 5454-3, 60460-7 ####[facility] LABCLIA [id number] [address] [place] MCHC (RBC) [Mass/Vol] 31.5 g/dL Normal 30.5-36.0 [facility] Comment on above: Order Comment: Speci men Type: BLOOD SPECIMENOrdering Facility: [facility] Address: [address] [place] [address] Performed By: #### 5 5454-3, 09395-8 ####[facility] LABIA [id number] [place] [address] [place] MCV (RBC) [Entitic vol] 88.9 fL Normal 80.0-100.0 [facility] Comment on above: Order Comment: Speci men Type: BLOOD SPECIMENOrdering Facility: [facility] Address: [address] [place] [address] Performed By: #### 5 5454-3, 52754-9 ####[facility] LABIA [id number] [place] [address] [place] Nucleated RBC (Bld) [#/Vol] 10*3/uL Normal <0.01 [facility] Comment on above: Order Comment: Speci men Type: BLOOD SPECIMENOrdering Facility: [facility] Address: [address] [place] [address] Performed By: #### 5 5454-3, 77024-3 ####[facility] LABCLIA [id number] [place] [address] [place] Platelet mean volume (Bld) [Entitic vol] 11.8 fL Normal 9.0-12.7 [facility] Comment on above: Order Comment: Speci men Type: BLOOD SPECIMENOrdering Facility: [facility] Address: [address] [place] [address] Performed By: #### 5 5454-3, 34272-9 ####[facility] LABCLIA [id number] [place] [address] [place] Platelets (Bld) [#/Vol] 144 10*3/uL Low 150-400 [facility] Comment on above: Order Comment: Speci men Type: BLOOD SPECIMENOrdering Facility: [facility] Address: [address] [place] [address] Performed By: #### 5 5454-3, 11990-0 ####[facility] LABCLIA [id number] [place] [address] [place] RBC (Bld) [#/Vol] 3.79 10*6/uL Low 4.20-6.00 [facility] Comment on above: Order Comment: Speci men Type: BLOOD SPECIMENOrdering Facility: [facility] Address: [address] [place] [address] Performed By: #### 5 5454-3, 22041-1 ####[facility] LABCLIA [id number] [place] [address] [place] WBC (Bld) [#/Vol] 9.87 10*3/uL Normal 3.70-11.00 [facility] Comment on above: Order Comment: Speci men Type: BLOOD SPECIMENOrdering Facility: [facility] Address: [address] [place] [address] Performed By: #### 5 5454-3, 01855-6 ####[facility] LABCLIA [id number] [address] [address] [place] CONFIRM BLOOD TYPEon 025 ABO A Normal [facility] Comment on above: Order Comment: Speci men Type: BLOOD SPECIMENOrdering Facility: [facility] Address: [address] [place] [address] Performed By: #### C ONABO ####CC MAIN BLOOD BANKCLIA [id number] [address] [address] [place] Rh Nom (Bld) Positive Normal [facility] Comment on above: Order Comment: Speci men Type: BLOOD SPECIMENOrdering Facility: [facility] Address: [address] [place] [address] Performed By: #### C ONABO ####CC MAIN BLOOD BANKCLIA [id number] [address] [address] [place] CONSULTon 11-23-2024 CONSULT Normal [facility] CONSULT Normal [facility] Comprehensive metabolic 2000 panelon 11-23-2024 Albumin [Mass/Vol] 3.7 g/dL Low 3.9-4.9 [facility] Comment on above: Order Comment: Speci men Type: BLOOD SPECIMENOrdering Facility: [facility] Address: [address] [place] [address] Performed By: #### 2 777-1, LIPNF, 6-4, 24796-7, 04426-6, 79070-8 ####[facility] LABIA [id number] [place] [id number] [place] ALP [Catalytic activity/Vol] 68 U/L Normal 38-113 [facility] Comment on above: Order Comment: Speci men Type: BLOOD SPECIMENOrdering Facility: [facility] Address: [address] [place] [id number] Performed By: #### 2 777-1, LIPNF, 6-4, 31387-8, 91361-1, 03297-5 ####[facility] LABCLIA [id number] [address] [address] [place] ALT [Catalytic activity/Vol] 43 U/L Normal 10-54 [facility] Comment on above: Order Comment: Speci men Type: BLOOD SPECIMENOrdering Facility: [facility] Address: [address] [place] [address] Performed By: #### 2 777-1, LIPNF, 2276-4, 01553-4, 99287-3, 54862-8 ####[facility] LABCLIA [id number] [place] [id number] [place] Anion gap [Moles/Vol] 23 mmol/L High 8-15 [facility] Comment on above: Order Comment: Speci men Type: BLOOD SPECIMENOrdering Facility: [facility] Address: [address] [place] [address] Performed By: #### 2 777-1, LIPNF, 2276-4, 88721-1, 73397-4, 67178-4 ####[facility] LABCLIA [id number] [place] [address] [place] AST [Catalytic activity/Vol] 17 U/L Normal 14-40 [facility] Comment on above: Order Comment: Speci men Type: BLOOD SPECIMENOrdering Facility: [facility] Address: [address] [place] [address] Performed By: #### 2 777-1, LIPNF, 2276-4, 84970-9, 53168-3, 99997-1 ####[facility] LABCLIA [id number] [place] [id number] [place] Bilirubin [Mass/Vol] 0.2 mg/dL Normal 0.2-1.3 [facility] Comment on above: Order Comment: Speci men Type: BLOOD SPECIMENOrdering Facility: [facility] Address: [address] [place] [address] Performed By: #### 2 777-1, LIPNF, 2276-4, 83150-9, 00601-1, 39897-5 ####[facility] LABCLIA [id number] [address] [place] [address] [place] Calcium [Mass/Vol] 9.3 mg/dL Normal 8.5-10.2 [facility] Comment on above: Order Comment: Speci men Type: BLOOD SPECIMENOrdering Facility: [facility] Address: [address] [place], [place] [address] Performed By: #### 2 777-1, LIPNF, 2276-4, 63442-8, 16212-1, 77099-5 ####[facility] LABCLIA [id number] [facility] [address] [place] [address] [place] Chloride [Moles/Vol] 86 mmol/L Low 98-107 [facility] Comment on above: Order Comment: Speci men Type: BLOOD SPECIMENOrdering Facility: [facility] Address: [address] [place] [address] Performed By: #### 2 777-1, LIPNF, 6-4, 48746-8, 14101-2, 83517-3 ####[facility] LABCLIA [id number] [address] [address] [place] CO2 [Moles/Vol] 21 mmol/L Low 22-30 [facility] Comment on above: Order Comment: Speci men Type: BLOOD SPECIMENOrdering Facility: [facility] Address: [address] [place], [place] [address] Performed By: #### 2 777-1, LIPNF, 6-4, 28395-7, 88760-7, 41962-3 ####[facility] LABCLIA [id number] [address] [place] [address] [place] Creatinine [Mass/Vol] 7.48 mg/dL High 0.73-1.22 [facility] Comment on above: Order Comment: Speci men Type: BLOOD SPECIMENOrdering Facility: [facility] Address: [address] [place], [place] [address] Performed By: #### 2 777-1, LIPNF, 2276-4, 92246-2, 21702-7, 50082-8 ####[facility] [id number] [place] [id number] [place] Creatinine and Glomerular filtration rate.predicted panel (S/P/Bld) 7 mL/min/1.73m??? Low >=60 [facility] Comment on above: Order Comment: Lesvia aleman Type: BLOOD SPECIMENOrdering Facility: [facility] Address: [address] [place] [address] Result Comment: Tessa mated Glomerular Filtration Rate [...] actual GFR. Performed By: #### 2 777-1, LIP, 2276-4, 23746-9, 99788-1, 12616-7 ####[facility] LABIA [id number] [place] [id number] [place] Glucose [Mass/Vol] 215 mg/dL High 74-99 [facility] Comment on above: Order Comment: Lesvia aleman Type: BLOOD SPECIMENOrdering Facility: [facility] Address: [address] [place] [address] Result Comment: The [place] Diabetes Association (ADA) provides guidance for cutoff [...] Standards of Medical Care in Diabetes 2016, [place] Diabetes Association. Diabetes Care. 2016.39(Suppl 1). Performed By: #### 2 777-1, LIPNF, 2276-4, 31235-5, 24239-1, 52192-1 ####[facility] LABCLIA [id number] [address] [address] [place] Potassium [Moles/Vol] 5.4 mmol/L High 3.7-5.1 [facility] Comment on above: Order Comment: Speci men Type: BLOOD SPECIMENOrdering Facility: [facility] Address: [address] [place] [address] Performed By: #### 2 777-1, LIPNF, 2276-4, 66296-2, 16106-2, 49088-8 ####[facility] LABCLIA [id number] [address] [address] [place] Protein [Mass/Vol] 6.9 g/dL Normal 6.3-8.0 [facility] Comment on above: Order Comment: Speci men Type: BLOOD SPECIMENOrdering Facility: [facility] Address: [address] [place], [place] [address] Performed By: #### 2 777-1, LIPNF, 6-4, 54248-7, 76021-1, 87825-0 ####[facility] LABCLIA [id number] [address] [address] [place] Sodium [Moles/Vol] 130 mmol/L Low 136-144 [facility] Comment on above: Order Comment: Speci men Type: BLOOD SPECIMENOrdering Facility: [facility] Address: [address] [place], [place] [address] Performed By: #### 2 777-1, LIPNF, 6-4, 22653-6, 27613-1, 79246-3 ####[facility] LABCLIA [id number] [address] [address] [place] Urea nitrogen [Mass/Vol] 100 mg/dL High 9-24 [facility] Comment on above: Order Comment: Speci men Type: BLOOD SPECIMENOrdering Facility: [facility] Address: [address] [place] [address] Performed By: #### 2 777-1, LIPNF, 2276-4, 70599-6, 51850-0, 95291-3 ####[facility] LABCLIA [id number] [address] [address] [place] ECG COMPLETEon 11-23-2024 ECG COMPLETE Normal [facility] ROM74xc 11-23-2024 ECG01 Normal [facility] ECHO LIMITEDon 11-23-2024 ECHO LIMITED Normal [facility] ECHO LIMITED Normal [facility] Ferritin SerPl-mCncon 2024 Ferritin [Mass/Vol] 1473.0 ng/mL High 30.3-565.7 [facility] Comment on above: Order Comment: Speci men Type: BLOOD SPECIMENOrdering Facility: [facility] Address: [address] [place] [address] Performed By: #### 2 777-1, LIPNF, 2276-4, 00937-9, 12535-5, 24556-1 ####[facility] LABCLIA [id number] [address] [address] [place] Gas and Carbon monoxide pane l (BldV)on 11-23-2024 BASE DEFICIT, VENOUS -1 mmol/L Normal -2-0 [facility] Comment on above: Order Comment: Speci men Type: VENOUS BLOOD SPECIMENOrdering Facility: [facility] Address: [address] [place] [address] Performed By: #### 2 4344-4 ####[facility] LABCLIA [id number] [address] [address] [place] Body temperature 98.6 [degF] Normal [facility] Comment on above: Order Comment: Speci men Type: VENOUS BLOOD SPECIMENOrdering Facility: [facility] Address: [address] [place] [address] Performed By: #### 2 4344-4 ####[facility] LABCLIA [id number] [place] [address] [place] Calcium.ionized (Bld) [Mass/Vol] 1.14 mmol/L Normal 1.08-1.30 [facility] Comment on above: Order Comment: Speci men Type: VENOUS BLOOD SPECIMENOrdering Facility: [facility] Address: [address] [place] [address] Performed By: #### 2 4344-4 ####[facility] LABIA [id number] [place] [address] [place] Calcium.ionized adjusted to pH 7.4 (BldA) [Moles/Vol] 1.07 mmol/L Low 1.08-1.30 [facility] Comment on above: Order Comment: Speci men Type: VENOUS BLOOD SPECIMENOrdering Facility: [facility] Address: [address] [place] [address] Performed By: #### 2 4344-4 ####[facility] LABIA [id number] [place] [address] [place] Carboxyhemoglobin (BldV) [Mass fraction] 0.8 % Normal 0.0-2.0 [facility] Comment on above: Order Comment: Speci men Type: VENOUS BLOOD SPECIMENOrdering Facility: [facility] Address: [address] [place] [address] Result Comment: Carb oxyhemoglobin Reference Range for Smokers: 2.0-8.0% Performed By: #### 2 4344-4 ####[facility] LABIA [id number] [place] [address] [place] CO2 (BldV) [Partial pressure] 56 mm[Hg] High 42-55 [facility] Comment on above: Order Comment: Speci men Type: VENOUS BLOOD SPECIMENOrdering Facility: [facility] Address: [address] [place] [address] Performed By: #### 2 4344-4 ####[facility] LABCLIA [id number] [address] [place] [address] [place] Glucose [Mass/Vol] 228 mg/dL High 60-105 [facility] Comment on above: Order Comment: Speci men Type: VENOUS BLOOD SPECIMENOrdering Facility: [facility] Address: [address] [place] [address] Performed By: #### 2 4344-4 ####[facility] LABCLIA [id number] [facility] [place] [id number] [place] HCO3 (Bld) [Moles/Vol] 26 mmol/L Normal 24-28 [facility] Comment on above: Order Comment: Speci men Type: VENOUS BLOOD SPECIMENOrdering Facility: [facility] Address: [address] [place] [address] Performed By: #### 2 4344-4 ####[facility] LABCLIA [id number] [place] [address] [place] Hematocrit (Bld) [Volume fraction] 34.4 % Low 39.0-51.0 [facility] Comment on above: Order Comment: Speci men Type: VENOUS BLOOD SPECIMENOrdering Facility: [facility] Address: [address] [place] [address] Performed By: #### 2 4344-4 ####[facility] LABCLIA [id number] [place] [address] [place] Hemoglobin (Bld) [Mass/Vol] 11.2 g/dL Low 13.0-17.0 [facility] Comment on above: Order Comment: Speci men Type: VENOUS BLOOD SPECIMENOrdering Facility: [facility] Address: [address] [place] [address] Performed By: #### 2 4344-4 ####[facility] LABCLIA [id number] [facility] [place] [id number] [place] Lactate [Moles/Vol] 0.9 mmol/L Normal 0.5-2.2 [facility] Comment on above: Order Comment: Speci men Type: VENOUS BLOOD SPECIMENOrdering Facility: [facility] Address: [facility] [place] [address] Performed By: #### 2 4344-4 ####[facility] LABCLIA [id number] [address] [address] [place] Methemoglobin (Bld) [Mass fraction] 1.2 % Normal 0.0-1.5 [facility] Comment on above: Order Comment: Speci men Type: VENOUS BLOOD SPECIMENOrdering Facility: [facility] Address: [address] [place] [address] Performed By: #### 2 4344-4 ####[facility] LABCLIA [id number] [place] [address] [place] O2 THERAPY RA=Room Air Normal [facility] Comment on above: Order Comment: Speci men Type: VENOUS BLOOD SPECIMENOrdering Facility: [facility] Address: [address] [place] [address] Performed By: #### 2 4344-4 ####[facility] LABCLIA [id number] [place] [address] [place] Oxygen (BldV) [Partial pressure] 24 mm[Hg] Low 35-45 [facility] Comment on above: Order Comment: Speci men Type: VENOUS BLOOD SPECIMENOrdering Facility: [facility] Address: [address] [place] [address] Performed By: #### 2 4344-4 ####[facility] LABCLIA [id number] [place] [id number] [place] Oxygen saturation in Venous blood 28 % Low 60-85 [facility] Comment on above: Order Comment: Speci men Type: VENOUS BLOOD SPECIMENOrdering Facility: [facility] Address: [address] [place] [address] Performed By: #### 2 4344-4 ####[facility] LABCLIA [id number] [place] [id number] [place] Oxyhemoglobin (BldV) [Mass fraction] 27 % Low 60-85 [facility] Comment on above: Order Comment: Speci men Type: VENOUS BLOOD SPECIMENOrdering Facility: [facility] Address: [address] [place] [address] Performed By: #### 2 4344-4 ####[facility] LABIA [id number] [place] [address] [place] pH (BldV) 7.29 [pH] Low 7.32-7.42 [facility] Comment on above: Order Comment: Speci men Type: VENOUS BLOOD SPECIMENOrdering Facility: [facility] Address: [address] [place] [address] Performed By: #### 2 4344-4 ####[facility] [id number] [place] [address] [place] Potassium [Moles/Vol] 5.3 mmol/L High 3.5-5.0 [facility] Comment on above: Order Comment: Speci men Type: VENOUS BLOOD SPECIMENOrdering Facility: [facility] Address: [address] [place] [address] Performed By: #### 2 4344-4 ####[facility] LABIA [id number] [place] [address] [place] Sodium [Moles/Vol] 128 mmol/L Low 136-144 [facility] Comment on above: Order Comment: Speci men Type: VENOUS BLOOD SPECIMENOrdering Facility: [facility] Address: [address] [place] [address] Performed By: #### 2 4344-4 ####[facility] LABIA [id number] [place] [id number] [place] HBV surface Ab Ql (S)on HBV surface Ab Qn (S) 104.84 mIU/mL Normal [facility] Comment on above: Order Comment: Speci men Type: BLOOD SPECIMENOrdering Facility: [facility] Address: [address] [place] [address] Result Comment: <8 m IU/mL: No serological evidence of immunity to Hepatitis B Virus.>/= 8 to <12 mIU/mL: No serological evidence of immunity to Hepatitis B Virus.>/= 12 mIU/mL: Consistent with serological evidence of immunity to Hepatitis B Virus. Performed By: #### 5 -3, 93163-5 ####[facility] LABIA [id number] [place] [address] [place] HBV surface Ab Ser Qlon HBV surface Ab Ql (S) Positive Normal [facility] Comment on above: Order Comment: Speci men Type: BLOOD SPECIMENOrdering Facility: [facility] Address: [address] [place] [address] Result Comment: Cons istent with serological evidence of immunity to Hepatitis B Virus. Performed By: #### 5 -3, 54033-2 ####[facility] LABIA [id number] [place] [address] [place] HBV surface Ag Ser Qlon HBV surface Ag Ql (S) Negative Normal Negative [facility] Comment on above: Order Comment: Speci men Type: BLOOD SPECIMENOrdering Facility: [facility] Address: [address] [place] [address] Performed By: #### 5 -3, ####[facility] [id number] [place] [address] [place] HISTORY PHYSICALon HISTORY PHYSICAL Normal [facility] HbA1c (Bld)on 11-23-2024 Average glucose Estimated from glycated hemoglobin (Bld) [Mass/Vol] 154 mg/dL Normal [facility] Comment on above: Order Comment: Speci men Type: BLOOD SPECIMENOrdering Facility: [facility] Address: [address] [place] [id number] Result Comment: eAG: (Estimated average glucose) is a calculated value from HgbA1c and is welding equipment sales representative of the average blood glucose level in the last 2-3 month period. Performed By: #### 5 5454-3, 16279-2 ####[facility] LABCLIA [id number] [address] [address] [place] HbA1c (Bld) [Mass fraction] 7.0 % High 4.3-5.6 [facility] Comment on above: Order Comment: Speci men Type: BLOOD SPECIMENOrdering Facility: [facility] Address: [address] [place] [address] Result Comment: [place] Diabetes Association guidelines indicate that patients with HgbA1c in the range 5.7-6.4% are at increased risk for development of diabetes, and intervention by lifestyle modification may be beneficial. HgbA1c greater or equal to 6.5% is considered diagnostic of diabetes. Performed By: #### 5 5454-3, 61997-9 ####[facility] LABCLIA [id number] [place] [id number] [place] Iron and Iron binding capaci ty panelon 11-23-2024 Iron [Mass/Vol] 105 ug/dL Normal 41-186 [facility] Comment on above: Order Comment: Speci men Type: BLOOD SPECIMENOrdering Facility: [facility] Address: [address] [place] [address] Performed By: #### 2 777-1, LIPNF, 2276-4, 50781-1, 53937-2, 86570-4 ####[facility] LABCLIA [id number] [place] [address] [place] Iron binding capacity [Mass/Vol] 179 ug/dL Low 232-386 [facility] Comment on above: Order Comment: Speci men Type: BLOOD SPECIMENOrdering Facility: [facility] Address: [address] [place] [address] Performed By: #### 2 777-1, LIPNF, 2276-4, 84445-3, 50710-2, 22436-1 ####[facility] LABCLIA [id number] [address] [address] [place] Iron/TIBC [Molar ratio] 58.7 % High 15.0-57.0 [facility] Comment on above: Order Comment: Speci men Type: BLOOD SPECIMENOrdering Facility: [facility] Address: [address] [place] [address] Performed By: #### 2 777-1, LIPNF, 2276-4, 71261-8, 06681-9, 83680-8 ####[facility] LABIA [id number] [address] [address] [place] LIPID PANEL, NONFASTINGon Cholesterol [Mass/Vol] 113 mg/dL Normal <200 [facility] Comment on above: Order Comment: Speci men Type: BLOOD SPECIMENOrdering Facility: [facility] Address: [address] [place], [place] [address] Result Comment: <200 mg/dL, Desirable 200-239 mg/dL, Borderline high>239 mg/dL, High Performed By: #### 2 777-1, LIPNF, 2276-4, 99259-0, 47125-9, 51496-8 ####[facility] LABCLIA [id number] [address] [address] [place] HDL CHOLESTEROL, NF 48 mg/dL Normal >39 [facility] Comment on above: Order Comment: Speci men Type: BLOOD SPECIMENOrdering Facility: [facility] Address: [address] [place], [place] [address] Result Comment: 40-5 9 mg/dL, Acceptable>59 mg/dL, High: Negative risk factor for coronary heart disease<40 mg/dL, Low: Positive risk factor for coronary heart disease Performed By: #### 2 777-1, LIPNF, 2276-4, 37976-6, 79246-5, 76866-7 ####[facility] LABCLIA [id number] [address] [address] [place] LDL CHOLESTEROL CALCULATED, NF 56 mg/dL Normal <100 [facility] Comment on above: Order Comment: Speci men Type: BLOOD SPECIMENOrdering Facility: [facility] Address: [address] [place] [address] Result Comment: <100 mg/dL, Optimal 100-129 mg/dL, Near optimal/above optimal 130-159 mg/dL, Borderline high 160-189 mg/dL, High>189 mg/dL, Very highSecondary prevention optimal LDL Cholesterol levels are recommended to be <70 mg/dLLDL cholesterol is calculated using the Nice-NIH equation. Performed By: #### 2 777-1, LIPNF, 6-4, 75241-1, 34282-8, 25366-8 ####[facility] LABCLIA [id number] [address] [place] LDL/HDL RATIO, NF 1.17 mg/dL Normal <2.54 [facility] Comment on above: Order Comment: Speci men Type: BLOOD SPECIMENOrdering Facility: [facility] Address: [address] [place] [address] Result Comment: Kaitlyn bryson:1. National Cholesterol Education Program ATP III Guideline At-A-Glance Quick Desk Reference: National Heart, Lung, and Blood Powell. National Institutes of Health. 2001: NIH Publication No. 01-3305.2. An International Atherosclerosis Society position paper: global recommendations for the management of dyslipidemia: executive summary, Atherosclerosis. 2014: 232(2):410-413. Performed By: #### 2 777-1, LIPNF, 6-4, 08640-4, 04536-8, 66642-2 ####[facility] LABCLIA [id number] [address] [address] [place] NON HDL CHOL, NF 65 mg/dL Normal <130 [facility] Comment on above: Order Comment: Speci men Type: BLOOD SPECIMENOrdering Facility: [facility] Address: [address] [place], [place] [address] Result Comment: <130 mg/dL, Optimal 130-159 mg/dL, Near optimal/above optimal 160-189 mg/dL, Borderline high 190-219 mg/dL, High>219 mg/dL, Very highSecondary prevention optimal non HDL Cholesterol levels are recommended to be <100 mg/dL Performed By: #### 2 777-1, LIPNF, 2276-4, 31511-5, 68643-0, 58116-7 ####[facility] LABCLIA [id number] [address] [address] [place] T CHOL/HDL RATIO NF 2.35 mg/dL Normal <5.10 [facility] Comment on above: Order Comment: Speci men Type: BLOOD SPECIMENOrdering Facility: [facility] Address: [address] [place] [address] Performed By: #### 2 777-1, LIPNF, 6-4, 02732-7, 71107-1, 80032-3 ####[facility] LABCLIA [id number] [place] [id number] [place] TRIGLYCERIDES, NF 33 mg/dL Normal <150 [facility] Comment on above: Order Comment: Speci men Type: BLOOD SPECIMENOrdering Facility: [facility] Address: [address] [place], [place] [address] Result Comment: <150 mg/dL, Normal 150-199 mg/dL, Borderline high 200-499 mg/dL, High>499 mg/dL, Very high Performed By: #### 2 777-1, LIPNF, 2276-4, 21505-4, 45420-4, 78978-3 ####[facility] LABCLIA [id number] [address] [address] [place] VLDL CHOLESTEROL, NF 5 mg/dL Normal <30 [facility] Comment on above: Order Comment: Speci men Type: BLOOD SPECIMENOrdering Facility: [facility] Address: [address] [place], [place] [address] Performed By: #### 2 777-1, LIPNF, 2276-4, 53317-4, 92277-5, 61164-3 ####[facility] LABCLIA [id number] [place] [id number] [place] Magnesium SerPl-mCncon 11-23 Magnesium [Mass/Vol] 2.7 mg/dL High 1.7-2.3 [facility] Comment on above: Order Comment: Lesvia aleman Type: BLOOD SPECIMENOrdering Facility: [facility] Address: [address] [place] [address] Performed By: #### 2 777-1, LIPNF, 6-4, 76931-4, 60346-3, 85145-3 ####[facility] LABCLIA [id number] [place] [address] [place] PT panel Coag (PPP)on 2024 INR Coag (PPP) [Relative time] 1.2 {INR} Normal 0.9-1.3 [facility] Comment on above: Order Comment: Lesvia aleman Type: BLOOD SPECIMENOrdering Facility: [facility] Address: [address] [place] [address] Result Comment: Ching min K Antagonist (VKA) Therapeutic Range: INR 2 to 3 (Target INR of 2.5)Note: For patients treated with VKA drugs, such as warfarin, the [employer] 2012 Guideline recommends [...] 3).Ana Laura ALEJANDRO, et al. Chest 2012, 141:7S-47SNishimura RA, et al. [facility] 2017, 70: 252-289 Performed By: #### 3 4528-0, 59082-5 ####[facility] LABIA [id number] [place] [address] [place] PT Coag (PPP) [Time] 12.6 s Normal 9.7-13.0 [facility] Comment on above: Order Comment: Speci men Type: BLOOD SPECIMENOrdering Facility: [facility] Address: [address] [place] [address] Performed By: #### 3 4528-0, 43608-5 ####[facility] [id number] [place] [address] [place] Phosphate SerPl-mCncon 11-23 Phosphate [Mass/Vol] 10.4 mg/dL High 2.7-4.8 [facility] Comment on above: Order Comment: Speci men Type: BLOOD SPECIMENOrdering Facility: [facility] Address: [address] [place] [address] Performed By: #### 2 777-1, LIPNF, 2276-4, 15742-7, 83086-0, 51476-6 ####[facility] [id number] [place] [address] [place] STAPHYLOCOCCUS AUREUS AND MR SA SCREEN, PCR, NASALon 11-23-2024 S. aureus and MRSA panel EZEKIEL+probe (Nose) Not detected Normal Not Detected [facility] Comment on above: Order Comment: Speci men Type: SWABOrdering Facility: [facility] Address: [address] [place] [address] Performed By: #### S APCR ####[facility] LABIA [id number] [place] [address] [place] T4 Free SerPl-mCncon 025 Free T4 [Mass/Vol] 1.0 ng/dL Normal 0.9-1.7 [facility] Comment on above: Order Comment: Speci men Type: BLOOD SPECIMENOrdering Facility: [facility] Address: [address] [place] [address] Performed By: #### 1 1065-0, 3024-7, 3016-3 ####[facility] LABCLIA [id number] [place] [address] [place] THERAPY NTon 11-23-2024 THERAPY NT Normal [facility] TSH SerPl-aCncon 11-23-2024 TSH Qn 1.490 m[IU]/L Normal 0.270-4.200 [facility] Comment on above: Order Comment: Speci men Type: BLOOD SPECIMENOrdering Facility: [facility] Address: [address] [place] [address] Performed By: #### 1 1065-0, 3024-7, 3016-3 ####[facility] LABCLIA [id number] [place] [address] [place] TYPE + SCREENon 11-23-2024 ABO A Normal [facility] Comment on above: Order Comment: Speci men Type: BLOOD SPECIMENOrdering Facility: [facility] Address: [address] [place] [address] Performed By: #### T SCR ####[facility] SAULT BLOOD BANKCLIA [id number] [place] [address] [place] Rh Nom (Bld) Positive Normal [facility] Comment on above: Order Comment: Speci men Type: BLOOD SPECIMENOrdering Facility: [facility] Address: [address] [place] [address] Performed By: #### T SCR ####[facility] MAIN BLOOD BANKCLIA [id number] [place] [address] [place] TYPE AND SCREEN EXPIRATION 11/26/2024 23:59 Normal [facility] Comment on above: Order Comment: Speci men Type: BLOOD SPECIMENOrdering Facility: [facility] Address: [address] [place] [address] Performed By: #### T SCR ####[facility] SAULT BLOOD BANKIA [id number] [place] [address] [place] Urea nitrogen post dialysis [Mass/Vol]on 11-23-2024 UREA REDUCTION RATIO WITH BUNPR 67 % Normal [facility] Comment on above: Order Comment: Speci men Type: BLOOD SPECIMENOrdering Facility: [facility] Address: [address] [place] [address] Performed By: #### 1 1064-3 ####[facility] LABIA [id number] [place] [address] [place] aPTT PPPon 11-23-2024 aPTT Coag (PPP) [Time] 33.5 s High 23.0-32.4 [facility] Comment on above: Order Comment: Speci men Type: BLOOD SPECIMENOrdering Facility: [facility] Address: [address] [place] [address] Performed By: #### 3 4528-0, 77832-5 ####[facility] LABIA [id number] [place] [address] [place] 12 Lead EKGon 11-22-2024 12 Lead EKG Normal [facility] 12 Lead EKG Normal [facility] Absolute lymphocyte countOrd ered By: Earl Genao on 11-22-2024 Lymphocytes Auto (Unsp spec) [#/Vol] 1.93 10*3/uL 0.83-4.51 [facility] Activated partial thrombopla stin time (aPTT) in platelet poor plasma by coagulation aOrdered By: Earl Genao on 11-22-2024 aPTT Coag (PPP) [Time] 34.7 s 24.1-36.2 [facility] Anion gap in Serum or Plasma Ordered By: Earl Genao on 11-22-2024 Anion gap [Moles/Vol] 17 mmol/L High 5-15 [facility] Automated lymphocyte count a s percentage of total leukocytesOrdered By: Earl Genao on 11-22-2024 Lymphocytes/100 WBC Auto (Unsp spec) 19.3 % 19-41 [facility] BUN/creatinine ratioOrdered By: Earl Genao on 11-22-2024 Urea nitrogen/Creatinine [Mass ratio] 12.4 mg/mg 10-20 [facility] Basic Metabolic Profile (BMP )on 11-22-2024 BUN/CRE 12.4 RATIO Normal - [facility] Comment on above: Performed By: #### L 300.4310, L300.3900, L501.4021, L100.0100, L501.5200, L500.2500, L503.7505 ####[facility] [address] [place], [address] Calcium [Mass/Vol] 8.8 mg/dL Normal 7.6-11.0 [facility] Comment on above: Performed By: #### L 300.4310, L300.3900, L501.4021, L100.0100, L501.5200, L500.2500, L503.7505 ####[facility] [address] [place], [address] Chloride [Moles/Vol] 88 mmol/L Low 98-108 [facility] Comment on above: Performed By: #### L 300.4310, L300.3900, L501.4021, L100.0100, L501.5200, L500.2500, L503.7505 ####[facility] [address] [place], [address] CO2 [Moles/Vol] 25.3 mmol/L Normal 21.0-32.0 [facility] Comment on above: Performed By: #### L 300.4310, L300.3900, L501.4021, L100.0100, L501.5200, L500.2500, L503.7505 ####[facility] [address] [place], [address] Creatinine [Mass/Vol] 6.55 mg/dL High 0.70-1.20 [facility] Comment on above: Performed By: #### L 300.4310, L300.3900, L501.4021, L100.0100, L501.5200, L500.2500, L503.7505 ####[facility] [address] [place], [address] ECRCL 8.98 ml/min Invalid Interpretation Code 50-250 [facility] Comment on above: Performed By: #### L 300.4310, L300.3900, L501.4021, L100.0100, L501.5200, L500.2500, L503.7505 ####[facility] [address] [place], [address] GAP 17 High 5-15 [facility] Comment on above: Performed By: #### L 300.4310, L300.3900, L501.4021, L100.0100, L501.5200, L500.2500, L503.7505 ####[facility] [address] [place], [place], [phone](101) GFR/1.73 sq M.predicted among non-blacks MDRD (S/P/Bld) [Vol rate/Area] 8 mL/min/{1.73_m2} Low >60 [facility] Comment on above: Result Comment: mL/m in/1.73m2 CKD-EPI Creatinine Equation (2020) Performed By: #### L 300.4310, L300.3900, L501.4021, L100.0100, L501.5200, L500.2500, L503.7505 ####[facility] [address] [place], [place], [phone](983) Glucose [Mass/Vol] 249 mg/dL High 70-99 [facility] Comment on above: Performed By: #### L 300.4310, L300.3900, L501.4021, L100.0100, L501.5200, L500.2500, L503.7505 ####[facility] [address] [place], [address] Potassium [Moles/Vol] 5.2 mmol/L High 3.3-5.1 [facility] Comment on above: Performed By: #### L 300.4310, L300.3900, L501.4021, L100.0100, L501.5200, L500.2500, L503.7505 ####[facility] [address] [place], [address] Sodium [Moles/Vol] 130 mmol/L Low 133-145 [facility] Comment on above: Performed By: #### L 300.4310, L300.3900, L501.4021, L100.0100, L501.5200, L500.2500, L503.7505 ####[facility] [address] [place], [place], [id number] Urea nitrogen [Mass/Vol] 81 mg/dL High 4-19 [facility] Comment on above: Performed By: #### L 300.4310, L300.3900, L501.4021, L100.0100, L501.5200, L500.2500, L503.7505 ####[facility] [address] [place], [place], [phone] Basophil percentageOrdered B y: Earl Genao on 11-22-2024 Basophils/100 WBC (Bld) 0.5 % 0-1 [facility] CBC W/Diff, Automatedon Absolute Lymph 1.93 X10 3/uL Normal 0.83-4.51 [facility] Comment on above: Performed By: #### L 300.4310, L300.3900, L501.4021, L100.0100, L501.5200, L500.2500, L503.7505 ####[facility] [address] [place], [address] Absolute Neut 6.8 X10 3/uL Normal 2.0-7.7 [facility] Comment on above: Performed By: #### L 300.4310, L300.3900, L501.4021, L100.0100, L501.5200, L500.2500, L503.7505 ####[facility] [address] [place], [address] Basophils/100 WBC (Bld) 0.5 % Normal 0-1 [facility] Comment on above: Performed By: #### L 300.4310, L300.3900, L501.4021, L100.0100, L501.5200, L500.2500, L503.7505 ####[facility] [address] [place], [address] Eosinophils/100 WBC (Bld) 2.6 % Normal 0-5 [facility] Comment on above: Performed By: #### L 300.4310, L300.3900, L501.4021, L100.0100, L501.5200, L500.2500, L503.7505 ####[facility] [address] [place], [address] Erythrocyte distribution width (RBC) [Ratio] 16.4 % High 11.6-14.6 [facility] Comment on above: Performed By: #### L 300.4310, L300.3900, L501.4021, L100.0100, L501.5200, L500.2500, L503.7505 ####[facility] [address] [place], [address] Hematocrit (Bld) [Volume fraction] 34.9 % Low 40-54 [facility] Comment on above: Performed By: #### L 300.4310, L300.3900, L501.4021, L100.0100, L501.5200, L500.2500, L503.7505 ####[facility] [address] [place], [address] Hemoglobin (Bld) [Mass/Vol] 10.9 g/dL Low 13.0-16.5 [facility] Comment on above: Performed By: #### L 300.4310, L300.3900, L501.4021, L100.0100, L501.5200, L500.2500, L503.7505 ####[facility] [address] [place], [address] IG% 0.500 Normal 0.0-0.9 [facility] Comment on above: Result Comment: IG% - Immature Granulocytes (promyelocytes, myelocytes andmetamyelocytes) > 1% indicates that a LEFT SHIFT is Present. Performed By: #### L 300.4310, L300.3900, L501.4021, L100.0100, L501.5200, L500.2500, L503.7505 ####[facility] [address] [place], [address] Lymphocytes/100 WBC (Bld) 19.3 % Normal 19-41 [facility] Comment on above: Performed By: #### L 300.4310, L300.3900, L501.4021, L100.0100, L501.5200, L500.2500, L503.7505 ####[facility] [address] [place], [address] MCH (RBC) [Entitic mass] 28.2 pg Normal 27.0-32.0 [facility] Comment on above: Performed By: #### L 300.4310, L300.3900, L501.4021, L100.0100, L501.5200, L500.2500, L503.7505 ####[facility] [address] [place], [address] MCHC (RBC) [Mass/Vol] 31.2 g/dL Low 32-36 [facility] Comment on above: Performed By: #### L 300.4310, L300.3900, L501.4021, L100.0100, L501.5200, L500.2500, L503.7505 ####[facility] [address] [place], [address] MCV (RBC) [Entitic vol] 90.2 fL Normal 80-94 [facility] Comment on above: Performed By: #### L 300.4310, L300.3900, L501.4021, L100.0100, L501.5200, L500.2500, L503.7505 ####[facility] [address] [place], [address] Monocytes/100 WBC (Bld) 8.8 % Normal 0-10 [facility] Comment on above: Performed By: #### L 300.4310, L300.3900, L501.4021, L100.0100, L501.5200, L500.2500, L503.7505 ####[facility] [address] [place], [address] Neutrophils/100 WBC (Bld) 68.3 % Normal 47-70 [facility] Comment on above: Performed By: #### L 300.4310, L300.3900, L501.4021, L100.0100, L501.5200, L500.2500, L503.7505 ####[facility] [address] [place], [address] Nucleated RBC (Bld) [#/Vol] 0 10*3/uL Normal 0-5 [facility] Comment on above: Performed By: #### L 300.4310, L300.3900, L501.4021, L100.0100, L501.5200, L500.2500, L503.7505 ####[facility] [address] [place], [address] Platelet mean volume (Bld) [Entitic vol] 11.7 fL Normal 6.2-12.0 [facility] Comment on above: Performed By: #### L 300.4310, L300.3900, L501.4021, L100.0100, L501.5200, L500.2500, L503.7505 ####[facility] [address] [place], [address] Platelets (Bld) [#/Vol] 161 10*3/uL Normal 150-450 [facility] Comment on above: Performed By: #### L 300.4310, L300.3900, L501.4021, L100.0100, L501.5200, L500.2500, L503.7505 ####[facility] [address] [place], [address] RBC (Bld) [#/Vol] 3.87 10*6/uL Low 4.6-6.2 [facility] Comment on above: Performed By: #### L 300.4310, L300.3900, L501.4021, L100.0100, L501.5200, L500.2500, L503.7505 ####[facility] [address] [place], [address] RDW SD 53.6 fl High 35.1-43.9 [facility] Comment on above: Performed By: #### L 300.4310, L300.3900, L501.4021, L100.0100, L501.5200, L500.2500, L503.7505 ####[facility] [address] [place], [address] WBC (Bld) [#/Vol] 10.0 10*3/uL Normal 4.4-11.0 [facility] Comment on above: Performed By: #### L 300.4310, L300.3900, L501.4021, L100.0100, L501.5200, L500.2500, L503.7505 ####[facility] [address] [place], [address] Carbon dioxide, total [Moles /volume] in Central venous bloodOrdered By: Earl Genao on 11-22-2024 CO2 [Moles/Vol] 25.3 mmol/L 21.0-32.0 [facility] Chest 1 View (Portable)on Chest 1 View (Portable) Normal [facility] Chloride assayOrdered By: Sulaiman Genao on 11-22-2024 Chloride [Moles/Vol] 88 mmol/L Low 98-108 [facility] Emergency Department Summary on 11-22-2024 Emergency Department Summary Normal [facility] Eosinophil percentageOrdered By: Earl Genao on 11-22-2024 Eosinophils/100 WBC (Bld) 2.6 % 0-5 [facility] Erythrocyte distribution wid th ratioOrdered By: Earl Genao on 11-22-2024 Erythrocyte distribution width (RBC) [Ratio] 16.4 % High 11.6-14.6 [facility] Erythrocyte distribution wid th standard deviationOrdered By: Earl Genao on 11-22-2024 Erythrocyte distribution width (RBC) [Ratio] 53.6 fl High 35.1-43.9 [facility] Glomerular filtration rate ( GFR) estimation/1.73 sq m using serum, plasma, or whole bOrdered By: Earl Genao on 11-22-2024 GFR/1.73 sq M.predicted among non-blacks MDRD (S/P/Bld) [Vol rate/Area] 8 mL/min/{1.73_m2} Low >60 [facility] Hematocrit Auto (Bld) [Volum e fraction]Ordered By: Earl Genao on 11-22-2024 Hematocrit (Bld) [Volume fraction] 34.9 % Low 40-54 [facility] Hemoglobin measurementOrdere d By: Earl Genao on 11-22-2024 Hemoglobin (Bld) [Mass/Vol] 10.9 g/dL Low 13.0-16.5 [facility] Immature granulocytes/100 WB C Auto (Bld)Ordered By: Earl Genao on 11-22-2024 Immature granulocytes/100 WBC (Bld) 0.500 % 0.0-0.9 [facility] L499.0042on 11-22-2024 Trop T High Sen 127 ng/L Invalid Interpretation Code <=22 [facility] Comment on above: Result Comment: Crit ical Result(s) Called at: 11-22-24 11:39 TO TAO by:??TYLER MENDENHALL Results read back by same. Performed By: #### L 499.0042 ####[facility] [address] [place], [address] L499.0043on 11-22-2024 Trop T High Sen Normal <=22 [facility] Comment on above: Result Comment: Solomon eason via OM: Ordered Performed By: #### L 499.0043 ####[facility] [address] [place], [address] L501.4021on 11-22-2024 Trop T High Sen 129 ng/L Invalid Interpretation Code <=22 [facility] Comment on above: Result Comment: Crit ical Result(s) Called at: 11/22/2024-10:17 by: Keily to Macey [facility].??Results read back by same. Performed By: #### L 300.4310, L300.3900, L501.4021, L100.0100, L501.5200, L500.2500, L503.7505 ####[facility] [address] [place], [address] L503.7505on 11-22-2024 Natriuretic peptide B (Bld) [Mass/Vol] 16407 pg/mL High <=1800 [facility] Comment on above: Result Comment: Hear t Failure Unlikely: < 300 pg/mLHeart Failure Likely< 50 Years: > 450 pg/mL50-75 Years: > 900 pg/mL>75 Years: > 1800 pg/mL Performed By: #### L 300.4310, L300.3900, L501.4021, L100.0100, L501.5200, L500.2500, L503.7505 ####[facility] [address] [place], [address] MCV (mean corpuscular volume ) determinationOrdered By: Earl Genao on 11-22-2024 MCV (RBC) [Entitic vol] 90.2 fL 80-94 [facility] Magnesiumon 11-22-2024 Magnesium [Mass/Vol] 2.6 mg/dL High 1.5-2.2 [facility] Comment on above: Performed By: #### L 300.4310, L300.3900, L501.4021, L100.0100, L501.5200, L500.2500, L503.7505 ####[facility] [address] [place], [place], [id number] Magnesium measurement (mass/ volume)Ordered By: Earl Genao on 11-22-2024 Magnesium (Unsp spec) [Mass/Vol] 2.6 mg/dL High 1.5-2.2 [facility] Mean corpuscular hemoglobin (MCH) determinationOrdered By: Earl Genao on 11-22-2024 MCH (RBC) [Entitic mass] 28.2 pg 27.0-32.0 [facility] Monocyte percentageOrdered B y: Earl Genao on 11-22-2024 Monocytes/100 WBC (Bld) 8.8 % 0-10 [facility] Natriuretic peptide.B prohor angie N-Terminal [Mass/volume] in Serum or PlasmaOrdered By: Earl Genao on 11-22-2024 Natriuretic peptide.B prohormone N-Terminal [Mass/Vol] 69614 pg/mL High <1800 [facility] Neutrophil percentageOrdered By: Earl Genao on 11-22-2024 Neutrophils/100 WBC (Bld) 68.3 % 47-70 [facility] Partial Thromboplast Timeon 11-22-2024 aPTT Coag (Bld) [Time] 34.7 s Normal 24.1-36.2 [facility] Comment on above: Performed By: #### L 300.4310, L300.3900, L501.4021, L100.0100, L501.5200, L500.2500, L503.7505 ####[facility] [address] [facility] [place], [address] Platelet countOrdered By: Sulaiman Genao on 11-22-2024 Platelets (Bld) [#/Vol] 161 10*3/uL 150-450 [facility] Potassium measurement (mass/ volume)Ordered By: Earl Genao on 11-22-2024 Potassium (Unsp spec) [Mass/Vol] 5.2 mmol/L High 3.3-5.1 [facility] Prothrombin Time w/INRon INR Coag (PPP) [Relative time] 1.3 {INR} Normal [facility] Comment on above: Performed By: #### L 300.4310, L300.3900, L501.4021, L100.0100, L501.5200, L500.2500, L503.7505 ####[facility] [address] [facility] [place], [address] PT Coag (PPP) [Time] 16.5 s High 11.7-14.9 [facility] Comment on above: Performed By: #### L 300.4310, L300.3900, L501.4021, L100.0100, L501.5200, L500.2500, L503.7505 ####[facility] [address] [place], [address] Prothrombin timeOrdered By: Earl Genao on 11-22-2024 PT Coag (PPP) [Time] 16.5 s High 11.7-14.9 [facility] RBC Auto (Bld) [#/Vol]Ordere d By: Earl Genao on 11-22-2024 RBC (Bld) [#/Vol] 3.87 10*6/uL Low 4.6-6.2 [facility] Serum creatinine measurement (mass/volume)Ordered By: Earl Genao on 11-22-2024 Creatinine [Mass/Vol] 6.55 mg/dL High 0.70-1.20 [facility] Serum glucose measurement (m ass/volume)Ordered By: Earl Genao on 11-22-2024 Glucose [Mass/Vol] 249 mg/dL High 70-99 [facility] Serum or plasma calcium lilli urement (mass/volume)Ordered By: Earl Genao on 11-22-2024 Calcium [Mass/Vol] 8.8 mg/dL 7.6-11.0 [facility] Serum or plasma urea nitroge n measurement (mass/volume)Ordered By: Earl Genao on 11-22-2024 Urea nitrogen [Mass/Vol] 81 mg/dL High 4-19 [facility] Sodium levelOrdered By: Earl Genao on 11-22-2024 Sodium [Moles/Vol] 130 mmol/L Low 133-145 [facility] Troponin T.cardiac [Mass/vol ume] in Serum or Plasma by High sensitivity methodOrdered By: Earl Genao on 11-22-2024 Troponin T.cardiac High sensitivity method [Mass/Vol] 127 ng/L High <22 [facility] Troponin T.cardiac High sensitivity method [Mass/Vol] 129 ng/L High <22 [facility] White blood cell (WBC) count Ordered By: Earl Genao on 11-22-2024 WBC (Bld) [#/Vol] 10.0 10*3/uL 4.4-11.0 [facility] Calculated very low density lipoprotein (VLDL) cholesterol measurementOrdered By: Nando Wiggins on 11-12-2024 Calculated very low density lipoprotein (VLDL) cholesterol measurement 5 mg/dL 5-40 [facility] LDL calc ser/plasOrdered By: Nando Wiggins on 11-12-2024 Cholesterol in LDL [Mass/Vol] 53 mg/dL [facility] Serum or plasma cholesterol in HDL measurement (mass/volume)Ordered By: Nando Wiggins on 11-12-2024 Cholesterol in HDL [Mass/Vol] 54 mg/dL >40 [facility] Serum or plasma cholesterol measurement (mass/volume)Ordered By: Nando Wiggins on 11-12-2024 Cholesterol [Mass/Vol] 112 mg/dL <201 [facility] Brain/Head without Contrasto n 11-08-2024 Brain/Head without Contrast Normal [facility] Emergency Department Summary on 11-08-2024 Emergency Department Summary Normal [facility] Foot min 3 Viewson 5 Foot min 3 Views Normal [facility] Absolute lymphocyte countOrd ered By: Nando Wiggins on 11-05-2024 Lymphocytes Auto (Unsp spec) [#/Vol] 1.94 10*3/uL 0.83-4.51 [facility] Anion gap in Serum or Plasma Ordered By: Nando Wiggins on 11-05-2024 Anion gap [Moles/Vol] 16 mmol/L High 5-15 [facility] Automated lymphocyte count a s percentage of total leukocytesOrdered By: Nando Wiggins on 11-05-2024 Lymphocytes/100 WBC Auto (Unsp spec) 25.6 % 19-41 [facility] BUN/creatinine ratioOrdered By: Nando Wiggins on 11-05-2024 Urea nitrogen/Creatinine [Mass ratio] 12.4 mg/mg 10-20 [facility] Basophil percentageOrdered B y: Nando Wiggins on 11-05-2024 Basophils/100 WBC (Bld) 0.7 % 0-1 [facility] Carbon dioxide, total [Moles /volume] in Central venous bloodOrdered By: Nando Wiggins on 11-05-2024 CO2 [Moles/Vol] 24.7 mmol/L 21.0-32.0 [facility] Chloride assayOrdered By: Kathie Wiggins on 11-05-2024 Chloride [Moles/Vol] 90 mmol/L Low 98-108 [facility] Eosinophil percentageOrdered By: Nando Wiggins on 11-05-2024 Eosinophils/100 WBC (Bld) 3.8 % 0-5 [facility] Erythrocyte distribution wid th ratioOrdered By: Nando Wiggins on 11-05-2024 Erythrocyte distribution width (RBC) [Ratio] 16.2 % High 11.6-14.6 [facility] Erythrocyte distribution wid th standard deviationOrdered By: Nando Wiggins on 11-05-2024 Erythrocyte distribution width (RBC) [Ratio] 52.6 fl High 35.1-43.9 [facility] Glomerular filtration rate ( GFR) estimation/1.73 sq m using serum, plasma, or whole bOrdered By: Nando Wiggins on 11-05-2024 GFR/1.73 sq M.predicted among non-blacks MDRD (S/P/Bld) [Vol rate/Area] 10 mL/min/{1.73_m2} Low >60 [facility] Hematocrit Auto (Bld) [Volum e fraction]Ordered By: [facility] W[facility] on 11-05-2024 Hematocrit (Bld) [Volume fraction] 37.4 % Low 40-54 [facility] Hemoglobin measurementOrdere d By: Nando Wiggins on 11-05-2024 Hemoglobin (Bld) [Mass/Vol] 11.7 g/dL Low 13.0-16.5 [facility] Immature granulocytes/100 WB C Auto (Bld)Ordered By: Nando Wiggins on 11-05-2024 Immature granulocytes/100 WBC (Bld) 0.400 % 0.0-0.9 [facility] MCV (mean corpuscular volume ) determinationOrdered By: Nando Wiggins on 11-05-2024 MCV (RBC) [Entitic vol] 89.3 fL 80-94 [facility] Mean corpuscular hemoglobin (MCH) determinationOrdered By: biancacollege parkwolf Wiggins on 11-05-2024 MCH (RBC) [Entitic mass] 27.9 pg 27.0-32.0 [facility] Monocyte percentageOrdered B y: Nando Wiggins on 11-05-2024 Monocytes/100 WBC (Bld) 12.3 % High 0-10 [facility] Neutrophil percentageOrdered By: [facility] on 11-05-2024 Neutrophils/100 WBC (Bld) 57.2 % 47-70 [facility] Platelet countOrdered By: Kathie Wiggins on 11-05-2024 Platelets (Bld) [#/Vol] 188 10*3/uL 150-450 [facility] Potassium measurement (mass/ volume)Ordered By: Nando Wiggins on 11-05-2024 Potassium (Unsp spec) [Mass/Vol] 4.4 mmol/L 3.3-5.1 [facility] RBC Auto (Bld) [#/Vol]Ordere d By: Nando Wiggins on 11-05-2024 RBC (Bld) [#/Vol] 4.19 10*6/uL Low 4.6-6.2 [facility] Serum creatinine measurement (mass/volume)Ordered By: Nando Wiggins on 11-05-2024 Creatinine [Mass/Vol] 5.10 mg/dL High 0.70-1.20 [facility] [place] Serum glucose measurement (m ass/volume)Ordered By: Nando Wiggins on 11-05-2024 Glucose [Mass/Vol] 81 mg/dL 70-99 [facility] Serum or plasma calcium lilli urement (mass/volume)Ordered By: Nando Wiggins on 11-05-2024 Calcium [Mass/Vol] 9.1 mg/dL 7.6-11.0 [facility] Serum or plasma urea nitroge n measurement (mass/volume)Ordered By: Nando Wiggins on 11-05-2024 Urea nitrogen [Mass/Vol] 63 mg/dL High 4-19 [facility] Sodium levelOrdered By: Deb rosetirsodesiree Wiggins on 11-05-2024 Sodium [Moles/Vol] 131 mmol/L Low 133-145 [facility] White blood cell (WBC) count Ordered By: Nando Wiggins on 11-05-2024 WBC (Bld) [#/Vol] 7.6 10*3/uL 4.4-11.0 [facility] Absolute lymphocyte countOrd ered By: Nando Wiggins on 10-29-2024 Lymphocytes Auto (Unsp spec) [#/Vol] 2.20 10*3/uL 0.83-4.51 [facility] Anion gap in Serum or Plasma Ordered By: Nando Wiggins on 10-29-2024 Anion gap [Moles/Vol] 16 mmol/L High 5-15 [facility] [place] Automated lymphocyte count a s percentage of total leukocytesOrdered By: Nando Wiggins on 10-29-2024 Lymphocytes/100 WBC Auto (Unsp spec) 27.2 % 19-41 [facility] BUN/creatinine ratioOrdered By: Nando Wiggins on 10-29-2024 Urea nitrogen/Creatinine [Mass ratio] 9.4 mg/mg Low 10-20 [facility] Basophil percentageOrdered B y: Nando Wiggins on 10-29-2024 Basophils/100 WBC (Bld) 0.9 % 0-1 [facility] Carbon dioxide, total [Moles /volume] in Central venous bloodOrdered By: Nando Wiggins on 10-29-2024 CO2 [Moles/Vol] 25.6 mmol/L 21.0-32.0 [facility] Cardiology Visit Reporton Cardiology Visit Report Normal [facility] Chloride assayOrdered By: Kathie Wiggins on 10-29-2024 Chloride [Moles/Vol] 93 mmol/L Low 98-108 [facility] Eosinophil percentageOrdered By: Nando Wiggins on 10-29-2024 Eosinophils/100 WBC (Bld) 4.8 % 0-5 [facility] Erythrocyte distribution wid th ratioOrdered By: Nando Wiggins on 10-29-2024 Erythrocyte distribution width (RBC) [Ratio] 16.9 % High 11.6-14.6 [facility] Erythrocyte distribution wid th standard deviationOrdered By: Nando Wiggins on 10-29-2024 Erythrocyte distribution width (RBC) [Ratio] 53.9 fl High 35.1-43.9 [facility] Glomerular filtration rate ( GFR) estimation/1.73 sq m using serum, plasma, or whole bOrdered By: Nando Wiggins on 10-29-2024 GFR/1.73 sq M.predicted among non-blacks MDRD (S/P/Bld) [Vol rate/Area] 9 mL/min/{1.73_m2} Low >60 [facility] Hematocrit Auto (Bld) [Volum e fraction]Ordered By: Nando Wiggins on 10-29-2024 Hematocrit (Bld) [Volume fraction] 37.8 % Low 40-54 [facility] Hemoglobin measurementOrdere d By: Nando Wiggins on 10-29-2024 Hemoglobin (Bld) [Mass/Vol] 11.6 g/dL Low 13.0-16.5 [facility] Immature granulocytes/100 WB C Auto (Bld)Ordered By: Nando Wiggins on 10-29-2024 Immature granulocytes/100 WBC (Bld) 0.200 % 0.0-0.9 [facility] MCV (mean corpuscular volume ) determinationOrdered By: Nando Wiggins on 10-29-2024 MCV (RBC) [Entitic vol] 89.2 fL 80-94 [facility] Mean corpuscular hemoglobin (MCH) determinationOrdered By: Nando Wiggins on 10-29-2024 MCH (RBC) [Entitic mass] 27.4 pg 27.0-32.0 [facility] Monocyte percentageOrdered B y: Nando Edenlakshmidesiree on 10-29-2024 Monocytes/100 WBC (Bld) 11.1 % High 0-10 [facility] Neutrophil percentageOrdered By: biancacollege parkwolf Wiggins on 10-29-2024 Neutrophils/100 WBC (Bld) 55.8 % 47-70 [facility] Platelet countOrdered By: Kathie fili Meeklakshmidesiree on 10-29-2024 Platelets (Bld) [#/Vol] 219 10*3/uL 150-450 [facility] Potassium measurement (mass/ volume)Ordered By: Nando Wiggins on 10-29-2024 Potassium (Unsp spec) [Mass/Vol] 4.4 mmol/L 3.3-5.1 [facility] RBC Auto (Bld) [#/Vol]Ordere d By: Kathiebiancalilian Meeklakshmidesiree on 10-29-2024 RBC (Bld) [#/Vol] 4.24 10*6/uL Low 4.6-6.2 [facility] Serum creatinine measurement (mass/volume)Ordered By: Nando Wiggins on 10-29-2024 Creatinine [Mass/Vol] 5.65 mg/dL High 0.70-1.20 [facility] [place] Serum glucose measurement (m ass/volume)Ordered By: Nando Wiggins on 10-29-2024 Glucose [Mass/Vol] 86 mg/dL 70-99 [facility] Serum or plasma calcium lilli urement (mass/volume)Ordered By: Nando Wiggins on 10-29-2024 Calcium [Mass/Vol] 9.5 mg/dL 7.6-11.0 [facility] Serum or plasma urea nitroge n measurement (mass/volume)Ordered By: Nando Wiggins on 10-29-2024 Urea nitrogen [Mass/Vol] 53 mg/dL High 4-19 [facility] Sodium levelOrdered By: Deb Wiggins on 10-29-2024 Sodium [Moles/Vol] 135 mmol/L 133-145 [facility] White blood cell (WBC) count Ordered By: Nando Wiggins on 10-29-2024 WBC (Bld) [#/Vol] 8.1 10*3/uL 4.4-11.0 [facility] Absolute lymphocyte countOrd ered By: Nando Wiggins on 10-22-2024 Lymphocytes Auto (Unsp spec) [#/Vol] 1.76 10*3/uL 0.83-4.51 [facility] Anion gap in Serum or Plasma Ordered By: Nando Wiggins on 10-22-2024 Anion gap [Moles/Vol] 16 mmol/L High 5-15 [facility] [place] Automated lymphocyte count a s percentage of total leukocytesOrdered By: Nando Wiggins on 10-22-2024 Lymphocytes/100 WBC Auto (Unsp spec) 19.8 % 19-41 [facility] BUN/creatinine ratioOrdered By: Nando Wiggins on 10-22-2024 Urea nitrogen/Creatinine [Mass ratio] 12.2 mg/mg 10-20 [facility] Basophil percentageOrdered B y: Nando Wiggins on 10-22-2024 Basophils/100 WBC (Bld) 0.6 % 0-1 [facility] Carbon dioxide, total [Moles /volume] in Central venous bloodOrdered By: Nando Wiggins on 10-22-2024 CO2 [Moles/Vol] 27.2 mmol/L 21.0-32.0 [facility] Chloride assayOrdered By: Kathie Wiggins on 10-22-2024 Chloride [Moles/Vol] 91 mmol/L Low 98-108 [facility] Eosinophil percentageOrdered By: Nando Wiggins on 10-22-2024 Eosinophils/100 WBC (Bld) 3.0 % 0-5 [facility] Erythrocyte distribution wid th ratioOrdered By: Nando Wiggins on 10-22-2024 Erythrocyte distribution width (RBC) [Ratio] 15.9 % High 11.6-14.6 [facility] Erythrocyte distribution wid th standard deviationOrdered By: Debcollege parkwolf Wiggins on 10-22-2024 Erythrocyte distribution width (RBC) [Ratio] 53.1 fl High 35.1-43.9 [facility] Glomerular filtration rate ( GFR) estimation/1.73 sq m using serum, plasma, or whole bOrdered By: Nando Wiggins on 10-22-2024 GFR/1.73 sq M.predicted among non-blacks MDRD (S/P/Bld) [Vol rate/Area] 12 mL/min/{1.73_m2} Low >60 [facility] Hematocrit Auto (Bld) [Volum e fraction]Ordered By: Nando Wiggins on 10-22-2024 Hematocrit (Bld) [Volume fraction] 35.6 % Low 40-54 [facility] Hemoglobin measurementOrdere d By: Nando Wiggins on 10-22-2024 Hemoglobin (Bld) [Mass/Vol] 10.7 g/dL Low 13.0-16.5 [facility] Immature granulocytes/100 WB C Auto (Bld)Ordered By: Nando Wiggins on 10-22-2024 Immature granulocytes/100 WBC (Bld) 0.400 % 0.0-0.9 [facility] MCV (mean corpuscular volume ) determinationOrdered By: Nando Wiggins on 10-22-2024 MCV (RBC) [Entitic vol] 90.6 fL 80-94 [facility] Mean corpuscular hemoglobin (MCH) determinationOrdered By: Nando Wiggins on 10-22-2024 MCH (RBC) [Entitic mass] 27.2 pg 27.0-32.0 [facility] Monocyte percentageOrdered B y: Nando Wiggins on 10-22-2024 Monocytes/100 WBC (Bld) 10.1 % High 0-10 [facility] Neutrophil percentageOrdered By: Nando Wiggins on 10-22-2024 Neutrophils/100 WBC (Bld) 66.1 % 47-70 [facility] Platelet countOrdered By: Kathie biancalilian Wiggins on 10-22-2024 Platelets (Bld) [#/Vol] 167 10*3/uL 150-450 [facility] Potassium measurement (mass/ volume)Ordered By: Nando Wiggins on 10-22-2024 Potassium (Unsp spec) [Mass/Vol] 4.1 mmol/L 3.3-5.1 [facility] RBC Auto (Bld) [#/Vol]Ordere d By: Debsrinathwolf Wiggins on 10-22-2024 RBC (Bld) [#/Vol] 3.93 10*6/uL Low 4.6-6.2 [facility] Serum creatinine measurement (mass/volume)Ordered By: Nando Wiggins on 10-22-2024 Creatinine [Mass/Vol] 4.58 mg/dL High 0.70-1.20 [facility] [place] Serum glucose measurement (m ass/volume)Ordered By: Nando Wiggins on 10-22-2024 Glucose [Mass/Vol] 131 mg/dL High 70-99 [facility] Serum or plasma calcium lilli urement (mass/volume)Ordered By: Nando Wiggins on 10-22-2024 Calcium [Mass/Vol] 9.1 mg/dL 7.6-11.0 [facility] Serum or plasma urea nitroge n measurement (mass/volume)Ordered By: Nando Wiggins on 10-22-2024 Urea nitrogen [Mass/Vol] 56 mg/dL High 4-19 [facility] Sodium levelOrdered By: Deb Wiggins on 10-22-2024 Sodium [Moles/Vol] 134 mmol/L 133-145 [facility] White blood cell (WBC) count Ordered By: Nando Wiggins on 10-22-2024 WBC (Bld) [#/Vol] 8.9 10*3/uL 4.4-11.0 [facility] Surgery Visit Reporton 10-17 Surgery Visit Report Normal [facility] Absolute lymphocyte countOrd ered By: Nando Wiggins on 10-16-2024 Lymphocytes Auto (Unsp spec) [#/Vol] 1.40 10*3/uL 0.83-4.51 [facility] Anion gap in Serum or Plasma Ordered By: Nando Wiggins on 10-16-2024 Anion gap [Moles/Vol] 14 mmol/L 5-15 [facility] [place] Automated lymphocyte count a s percentage of total leukocytesOrdered By: Nando Wiggins on 10-16-2024 Lymphocytes/100 WBC Auto (Unsp spec) 15.9 % Low 19-41 [facility] BUN/creatinine ratioOrdered By: Nando Wiggins on 10-16-2024 Urea nitrogen/Creatinine [Mass ratio] 13.8 mg/mg 10-20 [facility] Basophil percentageOrdered B y: Nando Wiggins on 10-16-2024 Basophils/100 WBC (Bld) 0.7 % 0-1 [facility] Carbon dioxide, total [Moles /volume] in Central venous bloodOrdered By: Nando Wiggins on 10-16-2024 CO2 [Moles/Vol] 27.7 mmol/L 21.0-32.0 [facility] Chloride assayOrdered By: Kathie Wiggins on 10-16-2024 Chloride [Moles/Vol] 93 mmol/L Low 98-108 [facility] Eosinophil percentageOrdered By: Nando Wiggins on 10-16-2024 Eosinophils/100 WBC (Bld) 2.7 % 0-5 [facility] Erythrocyte distribution wid th ratioOrdered By: Nando Wiggins on 10-16-2024 Erythrocyte distribution width (RBC) [Ratio] 15.8 % High 11.6-14.6 [facility] Erythrocyte distribution wid th standard deviationOrdered By: Nando Wiggins on 10-16-2024 Erythrocyte distribution width (RBC) [Ratio] 52.2 fl High 35.1-43.9 [facility] Glomerular filtration rate ( GFR) estimation/1.73 sq m using serum, plasma, or whole bOrdered By: Nando Wiggins on 10-16-2024 GFR/1.73 sq M.predicted among non-blacks MDRD (S/P/Bld) [Vol rate/Area] 9 mL/min/{1.73_m2} Low >60 [facility] Hematocrit Auto (Bld) [Volum e fraction]Ordered By: Nando Wiggins on 10-16-2024 Hematocrit (Bld) [Volume fraction] 34.0 % Low 40-54 [facility] Hemoglobin measurementOrdere d By: Nando Wiggins on 10-16-2024 Hemoglobin (Bld) [Mass/Vol] 10.4 g/dL Low 13.0-16.5 [facility] Immature granulocytes/100 WB C Auto (Bld)Ordered By: Nando Wiggins on 10-16-2024 Immature granulocytes/100 WBC (Bld) 0.300 % 0.0-0.9 [facility] MCV (mean corpuscular volume ) determinationOrdered By: Nando Wiggins on 10-16-2024 MCV (RBC) [Entitic vol] 90.2 fL 80-94 [facility] Mean corpuscular hemoglobin (MCH) determinationOrdered By: Nando Wiggins on 10-16-2024 MCH (RBC) [Entitic mass] 27.6 pg 27.0-32.0 [facility] Monocyte percentageOrdered B y: Nando Wiggins on 10-16-2024 Monocytes/100 WBC (Bld) 9.3 % 0-10 [facility] Neutrophil percentageOrdered By: Nando Wiggins on 10-16-2024 Neutrophils/100 WBC (Bld) 71.1 % High 47-70 [facility] Platelet countOrdered By: Kathie Wiggins on 10-16-2024 Platelets (Bld) [#/Vol] 152 10*3/uL 150-450 [facility] Potassium measurement (mass/ volume)Ordered By: Nando Wiggins on 10-16-2024 Potassium (Unsp spec) [Mass/Vol] 4.6 mmol/L 3.3-5.1 [facility] RBC Auto (Bld) [#/Vol]Ordere d By: Nando Wiggins on 10-16-2024 RBC (Bld) [#/Vol] 3.77 10*6/uL Low 4.6-6.2 [facility] Serum creatinine measurement (mass/volume)Ordered By: Nando Wiggins on 10-16-2024 Creatinine [Mass/Vol] 5.65 mg/dL High 0.70-1.20 [facility] [place] Serum glucose measurement (m ass/volume)Ordered By: Nando Wiggins on 10-16-2024 Glucose [Mass/Vol] 169 mg/dL High 70-99 [facility] Serum or plasma calcium lilli urement (mass/volume)Ordered By: Nando Wiggins on 10-16-2024 Calcium [Mass/Vol] 8.9 mg/dL 7.6-11.0 [facility] Serum or plasma urea nitroge n measurement (mass/volume)Ordered By: Nando Wiggins on 10-16-2024 Urea nitrogen [Mass/Vol] 78 mg/dL High 4-19 [facility] Sodium levelOrdered By: Deb Wiggins on 10-16-2024 Sodium [Moles/Vol] 135 mmol/L 133-145 [facility] White blood cell (WBC) count Ordered By: Nando Wiggins on 10-16-2024 WBC (Bld) [#/Vol] 8.8 10*3/uL 4.4-11.0 [facility] Absolute lymphocyte countOrd ered By: Nando Wiggins on 10-08-2024 Lymphocytes Auto (Unsp spec) [#/Vol] 1.87 10*3/uL 0.83-4.51 [facility] Anion gap in Serum or Plasma Ordered By: Nando Wiggins on 10-08-2024 Anion gap [Moles/Vol] 13 mmol/L 5-15 [facility] [place] Automated lymphocyte count a s percentage of total leukocytesOrdered By: Nando Wiggins on 10-08-2024 Lymphocytes/100 WBC Auto (Unsp spec) 27.5 % 19-41 [facility] BUN/creatinine ratioOrdered By: Nando Wiggins on 10-08-2024 Urea nitrogen/Creatinine [Mass ratio] 13.2 mg/mg 10-20 [facility] Basophil percentageOrdered B y: Nando Wiggins on 10-08-2024 Basophils/100 WBC (Bld) 1.0 % 0-1 [facility] Carbon dioxide, total [Moles /volume] in Central venous bloodOrdered By: Nando Wiggins on 10-08-2024 CO2 [Moles/Vol] 26.7 mmol/L 21.0-32.0 [facility] Chloride assayOrdered By: Kathie Wiggins on 10-08-2024 Chloride [Moles/Vol] 95 mmol/L Low 98-108 [facility] Eosinophil percentageOrdered By: Nando Wiggins on 10-08-2024 Eosinophils/100 WBC (Bld) 2.9 % 0-5 [facility] Erythrocyte distribution wid th ratioOrdered By: Nando Wiggins on 10-08-2024 Erythrocyte distribution width (RBC) [Ratio] 16.0 % High 11.6-14.6 [facility] Erythrocyte distribution wid th standard deviationOrdered By: Nando Wiggins on 10-08-2024 Erythrocyte distribution width (RBC) [Ratio] 54.2 fl High 35.1-43.9 [facility] Glomerular filtration rate ( GFR) estimation/1.73 sq m using serum, plasma, or whole bOrdered By: Nando Wiggins on 10-08-2024 GFR/1.73 sq M.predicted among non-blacks MDRD (S/P/Bld) [Vol rate/Area] 12 mL/min/{1.73_m2} Low >60 [facility] Hematocrit Auto (Bld) [Volum e fraction]Ordered By: Nando Wiggins on 10-08-2024 Hematocrit (Bld) [Volume fraction] 35.5 % Low 40-54 [facility] Hemoglobin measurementOrdere d By: Nando Wiggins on 10-08-2024 Hemoglobin (Bld) [Mass/Vol] 10.7 g/dL Low 13.0-16.5 [facility] Immature granulocytes/100 WB C Auto (Bld)Ordered By: fili Edenlakshmidesiree on 10-08-2024 Immature granulocytes/100 WBC (Bld) 0.400 % 0.0-0.9 [facility] MCV (mean corpuscular volume ) determinationOrdered By: biancacollege parkwolf Edenlakshmidesiree on 10-08-2024 MCV (RBC) [Entitic vol] 91.0 fL 80-94 [facility] Mean corpuscular hemoglobin (MCH) determinationOrdered By: biancacollege parkwolf Edenlakshmidesiree on 10-08-2024 MCH (RBC) [Entitic mass] 27.4 pg 27.0-32.0 [facility] Monocyte percentageOrdered B y: Nando Meeklakshmidesiree on 10-08-2024 Monocytes/100 WBC (Bld) 8.2 % 0-10 [facility] Neutrophil percentageOrdered By: [facility] Meeklakshmidesiree on 10-08-2024 Neutrophils/100 WBC (Bld) 60.0 % 47-70 [facility] Platelet countOrdered By: Kathie fili Meeklakshmidesiree on 10-08-2024 Platelets (Bld) [#/Vol] 164 10*3/uL 150-450 [facility] Potassium measurement (mass/ volume)Ordered By: Kathiebiancasrinathwolf Edenlakshmidesiree on 10-08-2024 Potassium (Unsp spec) [Mass/Vol] 4.1 mmol/L 3.3-5.1 [facility] RBC Auto (Bld) [#/Vol]Ordere d By: Nando Meeklakshmidesiree on 10-08-2024 RBC (Bld) [#/Vol] 3.90 10*6/uL Low 4.6-6.2 [facility] Serum creatinine measurement (mass/volume)Ordered By: Kathiefili Wiggins on 10-08-2024 Creatinine [Mass/Vol] 4.42 mg/dL High 0.70-1.20 [facility] [place] Serum glucose measurement (m ass/volume)Ordered By: Nando Wiggins on 10-08-2024 Glucose [Mass/Vol] 177 mg/dL High 70-99 [facility] Serum or plasma calcium lilli urement (mass/volume)Ordered By: Nando Wiggins on 10-08-2024 Calcium [Mass/Vol] 9.2 mg/dL 7.6-11.0 [facility] Serum or plasma urea nitroge n measurement (mass/volume)Ordered By: Nando Wiggins on 10-08-2024 Urea nitrogen [Mass/Vol] 59 mg/dL High 4-19 [facility] Sodium levelOrdered By: Deb rosetirsodesiree Wiggins on 10-08-2024 Sodium [Moles/Vol] 135 mmol/L 133-145 [facility] White blood cell (WBC) count Ordered By: Nando Wiggins on 10-08-2024 WBC (Bld) [#/Vol] 6.8 10*3/uL 4.4-11.0 [facility] Surgery Visit Reporton 10-03 Surgery Visit Report Normal [facility] Absolute lymphocyte countOrd ered By: Nando Wiggins on 10-02-2024 Lymphocytes Auto (Unsp spec) [#/Vol] 1.76 10*3/uL 0.83-4.51 [facility] Anion gap in Serum or Plasma Ordered By: Nando Wiggins on 10-02-2024 Anion gap [Moles/Vol] 14 mmol/L 5-15 [facility] [place] Automated lymphocyte count a s percentage of total leukocytesOrdered By: Nando Wiggins on 10-02-2024 Lymphocytes/100 WBC Auto (Unsp spec) 25.6 % 19-41 [facility] BUN/creatinine ratioOrdered By: Nando Wiggins on 10-02-2024 Urea nitrogen/Creatinine [Mass ratio] 17.4 mg/mg 10-20 [facility] Basophil percentageOrdered B y: Nando Wiggins on 10-02-2024 Basophils/100 WBC (Bld) 1.0 % 0-1 [facility] Carbon dioxide, total [Moles /volume] in Central venous bloodOrdered By: Nando Wiggins on 10-02-2024 CO2 [Moles/Vol] 26.5 mmol/L 21.0-32.0 [facility] Chloride assayOrdered By: Kathie Wiggins on 10-02-2024 Chloride [Moles/Vol] 90 mmol/L Low 98-108 [facility] Eosinophil percentageOrdered By: fili Wiggins 10-02-2024 Eosinophils/100 WBC (Bld) 2.5 % 0-5 [facility] Erythrocyte distribution wid th ratioOrdered By: [facility] on 10-02-2024 Erythrocyte distribution width (RBC) [Ratio] 16.2 % High 11.6-14.6 [facility] Erythrocyte distribution wid th standard deviationOrdered By: [facility] W[facility] on 10-02-2024 Erythrocyte distribution width (RBC) [Ratio] 54.6 fl High 35.1-43.9 [facility] Glomerular filtration rate ( GFR) estimation/1.73 sq m using serum, plasma, or whole bOrdered By: Nando Wiggins on 10-02-2024 GFR/1.73 sq M.predicted among non-blacks MDRD (S/P/Bld) [Vol rate/Area] 10 mL/min/{1.73_m2} Low >60 [facility] Hematocrit Auto (Bld) [Volum e fraction]Ordered By: fili Wiggins 10-02-2024 Hematocrit (Bld) [Volume fraction] 35.1 % Low 40-54 [facility] Hemoglobin measurementOrdere d By: Nando Wiggins 10-02-2024 Hemoglobin (Bld) [Mass/Vol] 10.5 g/dL Low 13.0-16.5 [facility] Immature granulocytes/100 WB C Auto (Bld)Ordered By: Nando Wiggins 10-02-2024 Immature granulocytes/100 WBC (Bld) 0.300 % 0.0-0.9 [facility] MCV (mean corpuscular volume ) determinationOrdered By: Nando Wiggins 10-02-2024 MCV (RBC) [Entitic vol] 91.4 fL 80-94 [facility] Mean corpuscular hemoglobin (MCH) determinationOrdered By: Nando Wiggins on 10-02-2024 MCH (RBC) [Entitic mass] 27.3 pg 27.0-32.0 [facility] Monocyte percentageOrdered B y: Nando Wiggins on 10-02-2024 Monocytes/100 WBC (Bld) 10.5 % High 0-10 [facility] Neutrophil percentageOrdered By: Nando Wiggins on 10-02-2024 Neutrophils/100 WBC (Bld) 60.1 % 47-70 [facility] Platelet countOrdered By: Kathie Wiggins on 10-02-2024 Platelets (Bld) [#/Vol] 158 10*3/uL 150-450 [facility] Potassium measurement (mass/ volume)Ordered By: Nando Wiggins on 10-02-2024 Potassium (Unsp spec) [Mass/Vol] 4.3 mmol/L 3.3-5.1 [facility] RBC Auto (Bld) [#/Vol]Ordere d By: Nando Wiggins on 10-02-2024 RBC (Bld) [#/Vol] 3.84 10*6/uL Low 4.6-6.2 [facility] Serum creatinine measurement (mass/volume)Ordered By: Nando Wiggins on 10-02-2024 Creatinine [Mass/Vol] 5.22 mg/dL High 0.70-1.20 [facility] [facility] [place] Serum glucose measurement (m ass/volume)Ordered By: Nando Wiggins on 10-02-2024 Glucose [Mass/Vol] 346 mg/dL High 70-99 [facility] Serum or plasma calcium lilli urement (mass/volume)Ordered By: Nando Wiggins on 10-02-2024 Calcium [Mass/Vol] 9.0 mg/dL 7.6-11.0 [facility] Serum or plasma urea nitroge n measurement (mass/volume)Ordered By: Nando Wiggins 10-02-2024 Urea nitrogen [Mass/Vol] 91 mg/dL High 4-19 [facility] Sodium levelOrdered By: Deb Brownedesiree on 10-02-2024 Sodium [Moles/Vol] 131 mmol/L Low 133-145 [facility] White blood cell (WBC) count Ordered By: Nando Wiggins on 10-02-2024 WBC (Bld) [#/Vol] 6.9 10*3/uL 4.4-11.0 [facility] Absolute lymphocyte countOrd ered By: Kathiebiancalilian Wiggins on 09-24-2024 Lymphocytes Auto (Unsp spec) [#/Vol] 1.75 10*3/uL 0.83-4.51 [facility] Anion gap in Serum or Plasma Ordered By: Kathiebiancalilian Meekcheko on 09-24-2024 Anion gap [Moles/Vol] 14 mmol/L 5-15 [facility] [place] Automated lymphocyte count a s percentage of total leukocytesOrdered By: Kathiebiancalilian Meeklakshmidesiree on 09-24-2024 Lymphocytes/100 WBC Auto (Unsp spec) 25.8 % 19-41 [facility] BUN/creatinine ratioOrdered By: Kathiebiancalilian Meekcheko on 09-24-2024 Urea nitrogen/Creatinine [Mass ratio] 12.6 mg/mg 10-20 [facility] Basophil percentageOrdered B y: Nando Wiggins on 09-24-2024 Basophils/100 WBC (Bld) 0.7 % 0-1 [facility] Carbon dioxide, total [Moles /volume] in Central venous bloodOrdered By: Nando Meeklakshmidesiere on 09-24-2024 CO2 [Moles/Vol] 26.2 mmol/L 21.0-32.0 [facility] Chloride assayOrdered By: Kathie fili Meeklakshmidesiree on 09-24-2024 Chloride [Moles/Vol] 93 mmol/L Low 98-108 [facility] Eosinophil percentageOrdered By: Kathiebiancalilian Meekcheko on 09-24-2024 Eosinophils/100 WBC (Bld) 2.7 % 0-5 [facility] Erythrocyte distribution wid th ratioOrdered By: Kathiebiancalilian Meeklakshmidesiree on 09-24-2024 Erythrocyte distribution width (RBC) [Ratio] 17.2 % High 11.6-14.6 [facility] Erythrocyte distribution wid th standard deviationOrdered By: Nando Wiggins on 09-24-2024 Erythrocyte distribution width (RBC) [Ratio] 58.0 fl High 35.1-43.9 [facility] Glomerular filtration rate ( GFR) estimation/1.73 sq m using serum, plasma, or whole bOrdered By: Nando Wiggins on 09-24-2024 GFR/1.73 sq M.predicted among non-blacks MDRD (S/P/Bld) [Vol rate/Area] 13 mL/min/{1.73_m2} Low >60 [facility] Hematocrit Auto (Bld) [Volum e fraction]Ordered By: [facility] W[facility] on 09-24-2024 Hematocrit (Bld) [Volume fraction] 34.6 % Low 40-54 [facility] Hemoglobin measurementOrdere d By: biancacollege parkwolf Wiggins on 09-24-2024 Hemoglobin (Bld) [Mass/Vol] 10.3 g/dL Low 13.0-16.5 [facility] Immature granulocytes/100 WB C Auto (Bld)Ordered By: Nando Wiggins on 09-24-2024 Immature granulocytes/100 WBC (Bld) 0.400 % 0.0-0.9 [facility] MCV (mean corpuscular volume ) determinationOrdered By: Nnado Wiggins on 09-24-2024 MCV (RBC) [Entitic vol] 90.8 fL 80-94 [facility] Mean corpuscular hemoglobin (MCH) determinationOrdered By: biancacollege parkwolf Wiggins 09-24-2024 MCH (RBC) [Entitic mass] 27.0 pg 27.0-32.0 [facility] Monocyte percentageOrdered B y: Nando Wiggins on 09-24-2024 Monocytes/100 WBC (Bld) 11.8 % High 0-10 [facility] Neutrophil percentageOrdered By: biancacollege parkwolf Wiggins on 09-24-2024 Neutrophils/100 WBC (Bld) 58.6 % 47-70 [facility] Platelet countOrdered By: Kathie Wiggins on 09-24-2024 Platelets (Bld) [#/Vol] 209 10*3/uL 150-450 [facility] Potassium measurement (mass/ volume)Ordered By: Nando Wiggins on 09-24-2024 Potassium (Unsp spec) [Mass/Vol] 3.4 mmol/L 3.3-5.1 [facility] RBC Auto (Bld) [#/Vol]Ordere d By: Nando Wiggins on 09-24-2024 RBC (Bld) [#/Vol] 3.81 10*6/uL Low 4.6-6.2 [facility] Serum creatinine measurement (mass/volume)Ordered By: Nando Wiggins on 09-24-2024 Creatinine [Mass/Vol] 4.34 mg/dL High 0.70-1.20 [facility] [place] Serum glucose measurement (m ass/volume)Ordered By: Nando Wiggins on 09-24-2024 Glucose [Mass/Vol] 241 mg/dL High 70-99 [facility] Serum or plasma calcium lilli urement (mass/volume)Ordered By: Nando Wiggins on 09-24-2024 Calcium [Mass/Vol] 9.0 mg/dL 7.6-11.0 [facility] Serum or plasma urea nitroge n measurement (mass/volume)Ordered By: Nando Wiggins on 09-24-2024 Urea nitrogen [Mass/Vol] 55 mg/dL High 4-19 [facility] Sodium levelOrdered By: Deb Wiggins on 09-24-2024 Sodium [Moles/Vol] 134 mmol/L 133-145 [facility] White blood cell (WBC) count Ordered By: Nando Wiggins on 09-24-2024 WBC (Bld) [#/Vol] 6.8 10*3/uL 4.4-11.0 [facility] Absolute lymphocyte countOrd ered By: Nando Wiggins on 09-17-2024 Lymphocytes Auto (Unsp spec) [#/Vol] 1.93 10*3/uL 0.83-4.51 [facility] Anion gap in Serum or Plasma Ordered By: Nando Wiggins on 09-17-2024 Anion gap [Moles/Vol] 13 mmol/L 5-15 [facility] [place] Automated lymphocyte count a s percentage of total leukocytesOrdered By: Nando Wiggins on 09-17-2024 Lymphocytes/100 WBC Auto (Unsp spec) 18.7 % Low 19-41 [facility] BUN/creatinine ratioOrdered By: Nando Wiggins on 09-17-2024 Urea nitrogen/Creatinine [Mass ratio] 12.3 mg/mg 10-20 [facility] Basophil percentageOrdered B y: Nando Wiggins on 09-17-2024 Basophils/100 WBC (Bld) 0.7 % 0-1 [facility] Carbon dioxide, total [Moles /volume] in Central venous bloodOrdered By: Nando Wiggins on 09-17-2024 CO2 [Moles/Vol] 27.5 mmol/L 21.0-32.0 [facility] Chloride assayOrdered By: Kathie Wiggins on 09-17-2024 Chloride [Moles/Vol] 93 mmol/L Low 98-108 [facility] Eosinophil percentageOrdered By: Nando Wiggins on 09-17-2024 Eosinophils/100 WBC (Bld) 2.3 % 0-5 [facility] Erythrocyte distribution wid th ratioOrdered By: Nando Wiggins on 09-17-2024 Erythrocyte distribution width (RBC) [Ratio] 17.6 % High 11.6-14.6 [facility] Erythrocyte distribution wid th standard deviationOrdered By: Nando Wiggins on 09-17-2024 Erythrocyte distribution width (RBC) [Ratio] 59.3 fl High 35.1-43.9 [facility] Glomerular filtration rate ( GFR) estimation/1.73 sq m using serum, plasma, or whole bOrdered By: Nando Wiggins on 09-17-2024 GFR/1.73 sq M.predicted among non-blacks MDRD (S/P/Bld) [Vol rate/Area] 13 mL/min/{1.73_m2} Low >60 [facility] Hematocrit Auto (Bld) [Volum e fraction]Ordered By: Nando Wiggins on 09-17-2024 Hematocrit (Bld) [Volume fraction] 32.9 % Low 40-54 [facility] Hemoglobin measurementOrdere d By: Nando Wiggins on 09-17-2024 Hemoglobin (Bld) [Mass/Vol] 9.7 g/dL Low 13.0-16.5 [facility] Immature granulocytes/100 WB C Auto (Bld)Ordered By: Nando Meeklakshmidesiree on 09-17-2024 Immature granulocytes/100 WBC (Bld) 0.400 % 0.0-0.9 [facility] MCV (mean corpuscular volume ) determinationOrdered By: Nando Meeklakshmidesiree on 09-17-2024 MCV (RBC) [Entitic vol] 91.9 fL 80-94 [facility] Mean corpuscular hemoglobin (MCH) determinationOrdered By: Kathiefili Edenlakshmidesiree on 09-17-2024 MCH (RBC) [Entitic mass] 27.1 pg 27.0-32.0 [facility] Monocyte percentageOrdered B y: Nando Meekcheko on 09-17-2024 Monocytes/100 WBC (Bld) 10.2 % High 0-10 [facility] Neutrophil percentageOrdered By: biancacollege parkwolf Wiggins on 09-17-2024 Neutrophils/100 WBC (Bld) 67.7 % 47-70 [facility] Platelet countOrdered By: Kathie Wiggins on 09-17-2024 Platelets (Bld) [#/Vol] 275 10*3/uL 150-450 [facility] Potassium measurement (mass/ volume)Ordered By: Kathiebiancalilian Meeklakshmidesiree on 09-17-2024 Potassium (Unsp spec) [Mass/Vol] 3.3 mmol/L 3.3-5.1 [facility] RBC Auto (Bld) [#/Vol]Ordere d By: Nando Wiggins on 09-17-2024 RBC (Bld) [#/Vol] 3.58 10*6/uL Low 4.6-6.2 [facility] Serum creatinine measurement (mass/volume)Ordered By: Kathiebiancasrinathwolf Edenlakshmidesiree on 09-17-2024 Creatinine [Mass/Vol] 4.25 mg/dL High 0.70-1.20 [facility] [place] Serum glucose measurement (m ass/volume)Ordered By: Nando Wiggins on 09-17-2024 Glucose [Mass/Vol] 151 mg/dL High 70-99 [facility] Serum or plasma calcium lilli urement (mass/volume)Ordered By: Nando Wiggins on 09-17-2024 Calcium [Mass/Vol] 8.7 mg/dL 7.6-11.0 [facility] Serum or plasma urea nitroge n measurement (mass/volume)Ordered By: Nando Wiggins on 09-17-2024 Urea nitrogen [Mass/Vol] 52 mg/dL High 4-19 [facility] Sodium levelOrdered By: Deb Wiggins on 09-17-2024 Sodium [Moles/Vol] 134 mmol/L 133-145 [facility] White blood cell (WBC) count Ordered By: Nando Wiggins on 09-17-2024 WBC (Bld) [#/Vol] 10.3 10*3/uL 4.4-11.0 [facility] Bilirubin directOrdered By: Nando Wiggins on 09-12-2024 Bilirubin.direct [Mass/Vol] 0.11 mg/dL 0.00-0.30 [facility] Bilirubin, totalOrdered By: Nando Wiggins on 09-12-2024 Bilirubin [Mass/Vol] 0.25 mg/dL 0.00-1.30 [facility] Hemoglobin A1c percentageOrd ered By: Nando Wiggins on 09-12-2024 HbA1c (Bld) [Mass fraction] 6.1 % High <5.7 [facility] No Panel InformationOrdered By: Nando Wiggins on 09-12-2024 16 U/L <38 [facility] Serum globulin measurementOr dered By: Nando Wiggins on 09-12-2024 Globulin (S) [Mass/Vol] 3.3 g/dL 2.2-4.2 [facility] Serum or plasma alanine hawkins otransferase (ALT) measurementOrdered By: Nando Wiggins on 09-12-2024 ALT [Catalytic activity/Vol] U/L <47 [facility] Serum or plasma albumin lilli urement (mass/volume)Ordered By: Kathiefili Edenlakshmidesiree on 09-12-2024 Albumin [Mass/Vol] 2.8 g/dL Low 3.4-4.8 [facility] Serum or plasma alkaline penelope sphatase measurementOrdered By: Kathiebiancasrinathwolf Edenlakshmidesiree on 09-12-2024 ALP [Catalytic activity/Vol] 55 U/L 40-129 [facility] Total proteinOrdered By: Sinandesiree schmidt Meeklakshmidesiree on 09-12-2024 Protein [Mass/Vol] 6.0 g/dL 5.9-8.4 [facility] Vitamin B12 ser/plasOrdered By: Kathiebiancasrinathwolf Edenlakshmidesiree on 09-12-2024 Cobalamin (Vitamin B12) [Mass/Vol] 717 pg/mL 180-914 [facility] Absolute lymphocyte countOrd ered By: Kathiebiancalilian Meeklakshmidesiree on 09-10-2024 Lymphocytes Auto (Unsp spec) [#/Vol] 1.78 10*3/uL 0.83-4.51 [facility] Anion gap in Serum or Plasma Ordered By: Debsrinathwolf Wiggins on 09-10-2024 Anion gap [Moles/Vol] 12 mmol/L 5-15 [facility] [place] Automated lymphocyte count a s percentage of total leukocytesOrdered By: Kathiebiancasrinathwolf Edenlakshmidesiree on 09-10-2024 Lymphocytes/100 WBC Auto (Unsp spec) 21.1 % 19-41 [facility] BUN/creatinine ratioOrdered By: Kathiefili Wiggins on 09-10-2024 Urea nitrogen/Creatinine [Mass ratio] 11.1 mg/mg 10-20 [facility] Basophil percentageOrdered B y: Kathiebiancasrinathwolf Edenlakshmidesiree on 09-10-2024 Basophils/100 WBC (Bld) 0.7 % 0-1 [facility] Carbon dioxide, total [Moles /volume] in Central venous bloodOrdered By: Kathiebiancasrinathwolf Wiggins on 09-10-2024 CO2 [Moles/Vol] 27.1 mmol/L 21.0-32.0 [facility] Chloride assayOrdered By: Kathie rheanwolf Wiggins on 04-21-2025 Chloride [Moles/Vol] 94 mmol/L Low 98-108 [facility] Eosinophil percentageOrdered By: Nando Wiggins on 09-10-2024 Eosinophils/100 WBC (Bld) 1.8 % 0-5 [facility] Erythrocyte distribution wid th ratioOrdered By: Nando Wiggins on 09-10-2024 Erythrocyte distribution width (RBC) [Ratio] 17.3 % High 11.6-14.6 [facility] Erythrocyte distribution wid th standard deviationOrdered By: Nando Wiggins on 09-10-2024 Erythrocyte distribution width (RBC) [Ratio] 56.1 fl High 35.1-43.9 [facility] Glomerular filtration rate ( GFR) estimation/1.73 sq m using serum, plasma, or whole bOrdered By: Nando Wiggins on 09-10-2024 GFR/1.73 sq M.predicted among non-blacks MDRD (S/P/Bld) [Vol rate/Area] 14 mL/min/{1.73_m2} Low >60 [facility] Hematocrit Auto (Bld) [Volum e fraction]Ordered By: Nando Wiggins on 09-10-2024 Hematocrit (Bld) [Volume fraction] 29.7 % Low 40-54 [facility] Hemoglobin measurementOrdere d By: Nando Wiggins on 09-10-2024 Hemoglobin (Bld) [Mass/Vol] 9.1 g/dL Low 13.0-16.5 [facility] Immature granulocytes/100 WB C Auto (Bld)Ordered By: Nando Wiggins on 09-10-2024 Immature granulocytes/100 WBC (Bld) 1.200 % High 0.0-0.9 [facility] MCV (mean corpuscular volume ) determinationOrdered By: Nando Wiggins on 09-10-2024 MCV (RBC) [Entitic vol] 88.9 fL 80-94 [facility] Mean corpuscular hemoglobin (MCH) determinationOrdered By: Nando Wiggins on 09-10-2024 MCH (RBC) [Entitic mass] 27.2 pg 27.0-32.0 [facility] Monocyte percentageOrdered B y: Nando Wiggins on 09-10-2024 Monocytes/100 WBC (Bld) 11.2 % High 0-10 [facility] Neutrophil percentageOrdered By: Nando Wiggins on 09-10-2024 Neutrophils/100 WBC (Bld) 64.0 % 47-70 [facility] Platelet countOrdered By: Kathie Wiggins on 09-10-2024 Platelets (Bld) [#/Vol] 305 10*3/uL 150-450 [facility] Potassium measurement (mass/ volume)Ordered By: Nando Meekcheko on 09-10-2024 Potassium (Unsp spec) [Mass/Vol] 3.9 mmol/L 3.3-5.1 [facility] RBC Auto (Bld) [#/Vol]Ordere d By: Nando Wiggins on 09-10-2024 RBC (Bld) [#/Vol] 3.34 10*6/uL Low 4.6-6.2 [facility] Serum creatinine measurement (mass/volume)Ordered By: Nando Wiggins on 09-10-2024 Creatinine [Mass/Vol] 3.98 mg/dL High 0.70-1.20 [facility] [place] Serum glucose measurement (m ass/volume)Ordered By: Nando Meekcheko on 09-10-2024 Glucose [Mass/Vol] 117 mg/dL High 70-99 [facility] Serum or plasma calcium lilli urement (mass/volume)Ordered By: Nando Meekcheko on 09-10-2024 Calcium [Mass/Vol] 8.9 mg/dL 7.6-11.0 [facility] Serum or plasma urea nitroge n measurement (mass/volume)Ordered By: Nando Meekcheko on 09-10-2024 Urea nitrogen [Mass/Vol] 44 mg/dL High 4-19 [facility] Sodium levelOrdered By: Deb Brownedesiree on 09-10-2024 Sodium [Moles/Vol] 133 mmol/L 133-145 [facility] White blood cell (WBC) count Ordered By: Nando Meekcheko on 09-10-2024 WBC (Bld) [#/Vol] 8.5 10*3/uL 4.4-11.0 [facility] Bedside Glucoseon 09-04-2024 FINGERSTICK GLU 214 mg/dL High [address] [place] [address] Comment on above: Result Comment: FANG GEMENT OF PATIENT CARE PER NURSING PROTOCOL Performed By: #### L 501.080 ####[facility] [address] [facility] [address] FINGERSTICK GLU 151 mg/dL High [facility]106 [facility] Comment on above: Result Comment: FANG GEMENT OF PATIENT CARE PER NURSING PROTOCOL Performed By: #### L 501.080 ####[facility] [address] [facility] [address] Glucose measurement at [facility] deOrdered By: Earl White on 09-04-2024 Glucose [Mass/Vol] 214 mg/dL High [facility]106 [facility] Absolute lymphocyte countOrd ered By: Salma Cervantes on 09-03-2024 Lymphocytes Auto (Unsp spec) [#/Vol] 1.48 10*3/uL 0.83-4.51 [facility] Automated lymphocyte count a s percentage of total leukocytesOrdered By: Salma Cervantes on 09-03-2024 Lymphocytes/100 WBC Auto (Unsp spec) 19.3 % 19-41 [facility] Basophil percentageOrdered B y: Salma Cervantes on 09-03-2024 Basophils/100 WBC (Bld) 0.5 % 0-1 [facility] Bedside Glucoseon 09-03-2024 FINGERSTICK GLU 219 mg/dL High 74-106 [facility] Comment on above: Result Comment: FANG GEMENT OF PATIENT CARE PER NURSING PROTOCOL Performed By: #### L 501.080 ####[facility] [address] [facility] [address] FINGERSTICK GLU 212 mg/dL High [address] [place] [address] Comment on above: Result Comment: FANG GEMENT OF PATIENT CARE PER NURSING PROTOCOL Performed By: #### L 501.080 ####[facility] [address] [place], [address] FINGERSTICK GLU 172 mg/dL High 74-106 [facility] Comment on above: Result Comment: FANG GEMENT OF PATIENT CARE PER NURSING PROTOCOL Performed By: #### L 501.080 ####[facility] [address] [place], [address] FINGERSTICK GLU 175 mg/dL High 74-106 [facility] Comment on above: Result Comment: FANG GEMENT OF PATIENT CARE PER NURSING PROTOCOL Performed By: #### L 501.080 ####[facility] [address] [place], [address] CBC W/Diff, Automatedon 08-21 Absolute Lymph 1.48 X10 3/uL Normal 0.83-4.51 [facility] Comment on above: Performed By: #### L 100.0100 ####[facility] [address] [place], [address] Absolute Neut 5.2 X10 3/uL Normal 2.0-7.7 [facility] Comment on above: Performed By: #### L 100.0100 ####[facility] [address] [place], [address] Basophils/100 WBC (Bld) 0.5 % Normal 0-1 [facility] Comment on above: Performed By: #### L 100.0100 ####[facility] [address] [place], [address] Eosinophils/100 WBC (Bld) 2.7 % Normal 0-5 [facility] Comment on above: Performed By: #### L 100.0100 ####[facility] [address] [place], [address] Erythrocyte distribution width (RBC) [Ratio] 16.3 % High 11.6-14.6 [facility] Comment on above: Performed By: #### L 100.0100 ####[facility] [address] [place], [address] Hematocrit (Bld) [Volume fraction] 24.8 % Low 40-54 [facility] Comment on above: Performed By: #### L 100.0100 ####[facility] [address] [place], [address] Hemoglobin (Bld) [Mass/Vol] 7.4 g/dL Low 13.0-16.5 [facility] Comment on above: Performed By: #### L 100.0100 ####[facility] [address] [place], [address] IG% 0.500 Normal 0.0-0.9 [facility] Comment on above: Result Comment: IG% - Immature Granulocytes (promyelocytes, myelocytes andmetamyelocytes) > 1% indicates that a LEFT SHIFT is Present. Performed By: #### L 100.0100 ####[facility] [address] [place], [address] Lymphocytes/100 WBC (Bld) 19.3 % Normal 19-41 [facility] Comment on above: Performed By: #### L 100.0100 ####[facility] [address] [place], [address] MCH (RBC) [Entitic mass] 26.6 pg Low 27.0-32.0 [facility] Comment on above: Performed By: #### L 100.0100 ####[facility] [address] [place], [address] MCHC (RBC) [Mass/Vol] 29.8 g/dL Low 32-36 [facility] [place] Comment on above: Performed By: #### L 100.0100 ####[facility] [address] [place], [address] MCV (RBC) [Entitic vol] 89.2 fL Normal 80-94 [facility] Comment on above: Performed By: #### L 100.0100 ####[facility] [address] [place], [address] Monocytes/100 WBC (Bld) 9.7 % Normal 0-10 [facility] Comment on above: Performed By: #### L 100.0100 ####[facility] [address] [place], [address] Neutrophils/100 WBC (Bld) 67.3 % Normal 47-70 [facility] Comment on above: Performed By: #### L 100.0100 ####[facility] [address] [place], [address] Nucleated RBC (Bld) [#/Vol] 0 10*3/uL Normal 0-5 [facility] Comment on above: Performed By: #### L 100.0100 ####[facility] [address] [place], [address] Platelet mean volume (Bld) [Entitic vol] 10.9 fL Normal 6.2-12.0 [facility] Comment on above: Performed By: #### L 100.0100 ####[facility] [address] [place], [address] Platelets (Bld) [#/Vol] 305 10*3/uL Normal 150-450 [facility] Comment on above: Performed By: #### L 100.0100 ####[facility] [address] [place], [address] RBC (Bld) [#/Vol] 2.78 10*6/uL Low 4.6-6.2 [facility] Comment on above: Performed By: #### L 100.0100 ####[facility] [address] [place], [address] RDW SD 53.4 fl High 35.1-43.9 [facility] Comment on above: Performed By: #### L 100.0100 ####[facility] [address] [place], [address] WBC (Bld) [#/Vol] 7.7 10*3/uL Normal 4.4-11.0 [facility] Comment on above: Performed By: #### L 100.0100 ####[facility] [address] [facility] [place], [address] Eosinophil percentageOrdered By: Salma Cervantes on 09-03-2024 Eosinophils/100 WBC (Bld) 2.7 % 0-5 [facility] Erythrocyte distribution wid th ratioOrdered By: Salma Cervantes on 09-03-2024 Erythrocyte distribution width (RBC) [Ratio] 16.3 % High 11.6-14.6 [facility] Erythrocyte distribution wid th standard deviationOrdered By: Salmavito Cervantes on 09-03-2024 Erythrocyte distribution width (RBC) [Ratio] 53.4 fl High 35.1-43.9 [facility] Hematocrit Auto (Bld) [Volum e fraction]Ordered By: Salma Cervantes on 09-03-2024 Hematocrit (Bld) [Volume fraction] 24.8 % Low 40-54 [facility] Hemoglobin measurementOrdere d By: Salma Cervantes on 09-03-2024 Hemoglobin (Bld) [Mass/Vol] 7.4 g/dL Low 13.0-16.5 [facility] Immature granulocytes/100 WB C Auto (Bld)Ordered By: Salma Cervantes 09-03-2024 Immature granulocytes/100 WBC (Bld) 0.500 % 0.0-0.9 [facility] MCV (mean corpuscular volume ) determinationOrdered By: Salma Cervantes 09-03-2024 MCV (RBC) [Entitic vol] 89.2 fL 80-94 [facility] Mean corpuscular hemoglobin (MCH) determinationOrdered By: Salma Cervantes on 09-03-2024 MCH (RBC) [Entitic mass] 26.6 pg Low 27.0-32.0 [facility] Monocyte percentageOrdered B y: Salma Cervantes on 09-03-2024 Monocytes/100 WBC (Bld) 9.7 % 0-10 [facility] Neutrophil percentageOrdered By: Salma Cervantes on 09-03-2024 Neutrophils/100 WBC (Bld) 67.3 % 47-70 [facility] Platelet countOrdered By: Hayden Cervantes on 09-03-2024 Platelets (Bld) [#/Vol] 305 10*3/uL 150-450 [facility] RBC Auto (Bld) [#/Vol]Ordere d By: Salma Cervantes on 09-03-2024 RBC (Bld) [#/Vol] 2.78 10*6/uL Low 4.6-6.2 [facility] White blood cell (WBC) count Ordered By: Salma Cervantes on 09-03-2024 WBC (Bld) [#/Vol] 7.7 10*3/uL 4.4-11.0 [facility] Anion gap in Serum or Plasma Ordered By: Salma Cervantes on 09-02-2024 Anion gap [Moles/Vol] 12 mmol/L 5-15 [facility] [place] BUN/creatinine ratioOrdered By: Salma Cervantes on 09-02-2024 Urea nitrogen/Creatinine [Mass ratio] 13.7 mg/mg - [facility] Basic Metabolic Profile (BMP )on 09-02-2024 BUN/CRE 13.7 RATIO Normal - [facility] Comment on above: Performed By: #### L 500.2500 ####[facility] [address] [place], [address] Calcium [Mass/Vol] 8.7 mg/dL Normal 7.6-11.0 [facility] Comment on above: Performed By: #### L 500.2500 ####[facility] [address] [place], [address] Chloride [Moles/Vol] 96 mmol/L Low 98-108 [facility] Comment on above: Performed By: #### L 500.2500 ####[facility] [address] [place], [address] CO2 [Moles/Vol] 23.2 mmol/L Normal 21.0-32.0 [facility] Comment on above: Performed By: #### L 500.2500 ####[facility] [address] [place], [address] Creatinine [Mass/Vol] 4.19 mg/dL High 0.70-1.20 [facility] [place] Comment on above: Performed By: #### L 500.2500 ####[facility] [address] [place], [address] ECRCL 13.21 ml/min Low 50-250 [facility] Comment on above: Performed By: #### L 500.2500 ####[facility] [address] [place], [address] GAP 12 Normal 5-15 [facility] Comment on above: Performed By: #### L 500.2500 ####[facility] [address] [place], [address] GFR/1.73 sq M.predicted among non-blacks MDRD (S/P/Bld) [Vol rate/Area] 13 mL/min/{1.73_m2} Low >60 [facility] Comment on above: Result Comment: mL/m in/1.73m2 CKD-EPI Creatinine Equation (2020) Performed By: #### L 500.2500 ####[facility] [address] [place], [address] Glucose [Mass/Vol] 186 mg/dL High 70-99 [facility] Comment on above: Performed By: #### L 500.2500 ####[facility] [address] [place], [address] Potassium [Moles/Vol] 4.8 mmol/L Normal 3.3-5.1 [facility] [place] Comment on above: Performed By: #### L 500.2500 ####[facility] [address] [place], [address] Sodium [Moles/Vol] 131 mmol/L Low 133-145 [facility] Comment on above: Performed By: #### L 500.2500 ####[facility] [address] [place], [address] Urea nitrogen [Mass/Vol] 57 mg/dL High 4-19 [facility] Comment on above: Performed By: #### L 500.2500 ####[facility] [address] [place], [address] Bedside Glucoseon 09-02-2024 FINGERSTICK GLU 212 mg/dL High 74-106 [facility] Comment on above: Result Comment: FANG GEMENT OF PATIENT CARE PER NURSING PROTOCOL Performed By: #### L 501.080 ####[facility] [address] [place], [address] FINGERSTICK GLU 183 mg/dL High 74-106 [facility] Comment on above: Result Comment: FANG GEMENT OF PATIENT CARE PER NURSING PROTOCOL Performed By: #### L 501.080 ####[facility] [address] [place], [address] FINGERSTICK GLU 219 mg/dL High 74-106 [facility] Comment on above: Result Comment: FANG GEMENT OF PATIENT CARE PER NURSING PROTOCOL Performed By: #### L 501.080 ####[facility] [address] [place], [address] FINGERSTICK GLU 177 mg/dL High 74-106 [facility] Comment on above: Result Comment: FANG GEMENT OF PATIENT CARE PER NURSING PROTOCOL Performed By: #### L 501.080 ####[facility] [address] [place], [address] CBC W/Diff, Automatedon 08-21 Absolute Lymph 1.42 X10 3/uL Normal 0.83-4.51 [facility] Comment on above: Performed By: #### L 100.0100 ####[facility] [address] [place], [address] Absolute Neut 4.8 X10 3/uL Normal 2.0-7.7 [facility] Comment on above: Performed By: #### L 100.0100 ####[facility] [address] [place], [address] Basophils/100 WBC (Bld) 0.4 % Normal 0-1 [facility] Comment on above: Performed By: #### L 100.0100 ####[facility] [address] [place], [address] Eosinophils/100 WBC (Bld) 3.2 % Normal 0-5 [facility] Comment on above: Performed By: #### L 100.0100 ####[facility] [address] [place], [address] Erythrocyte distribution width (RBC) [Ratio] 16.0 % High 11.6-14.6 [facility] Comment on above: Performed By: #### L 100.0100 ####[facility] [address] [place], [address] Hematocrit (Bld) [Volume fraction] 25.8 % Low 40-54 [facility] Comment on above: Performed By: #### L 100.0100 ####[facility] [address] [place], [address] Hemoglobin (Bld) [Mass/Vol] 7.8 g/dL Low 13.0-16.5 [facility] Comment on above: Performed By: #### L 100.0100 ####[facility] [address] [place], [address] IG% 0.400 Normal 0.0-0.9 [facility] Comment on above: Result Comment: IG% - Immature Granulocytes (promyelocytes, myelocytes andmetamyelocytes) > 1% indicates that a LEFT SHIFT is Present. Performed By: #### L 100.0100 ####[facility] [address] [place], [address] Lymphocytes/100 WBC (Bld) 19.9 % Normal 19-41 [facility] Comment on above: Performed By: #### L 100.0100 ####[facility] [address] [place], [address] MCH (RBC) [Entitic mass] 27.2 pg Normal 27.0-32.0 [facility] Comment on above: Performed By: #### L 100.0100 ####[facility] [address] [place], [address] MCHC (RBC) [Mass/Vol] 30.2 g/dL Low 32-36 [facility] [place] Comment on above: Performed By: #### L 100.0100 ####[facility] [address] [place], [address] MCV (RBC) [Entitic vol] 89.9 fL Normal 80-94 [facility] Comment on above: Performed By: #### L 100.0100 ####[facility] [address] [place], [address] Monocytes/100 WBC (Bld) 9.1 % Normal 0-10 [facility] Comment on above: Performed By: #### L 100.0100 ####[facility] [address] [place], [address] Neutrophils/100 WBC (Bld) 67.0 % Normal 47-70 [facility] Comment on above: Performed By: #### L 100.0100 ####[facility] [address] [place], [address] Nucleated RBC (Bld) [#/Vol] 0 10*3/uL Normal 0-5 [facility] Comment on above: Performed By: #### L 100.0100 ####[facility] [address] [place], [address] Platelet mean volume (Bld) [Entitic vol] 10.6 fL Normal 6.2-12.0 [facility] Comment on above: Performed By: #### L 100.0100 ####[facility] [address] [place], [address] Platelets (Bld) [#/Vol] 284 10*3/uL Normal 150-450 [facility] Comment on above: Performed By: #### L 100.0100 ####[facility] [address] [place], [address] RBC (Bld) [#/Vol] 2.87 10*6/uL Low 4.6-6.2 [facility] Comment on above: Performed By: #### L 100.0100 ####[facility] [address] [place], [address] RDW SD 52.3 fl High 35.1-43.9 [facility] Comment on above: Performed By: #### L 100.0100 ####[facility] [address] [place], [address] WBC (Bld) [#/Vol] 7.2 10*3/uL Normal 4.4-11.0 [facility] Comment on above: Performed By: #### L 100.0100 ####[facility] [address] [place], [address] Carbon dioxide, total [Moles /volume] in Central venous bloodOrdered By: Salma Cervantes on 09-02-2024 CO2 [Moles/Vol] 23.2 mmol/L 21.0-32.0 [facility] Chloride assayOrdered By: Hayden Cervantes on 09-02-2024 Chloride [Moles/Vol] 96 mmol/L Low 98-108 [facility] Glomerular filtration rate ( GFR) estimation/1.73 sq m using serum, plasma, or whole bOrdered By: Salmavito Cervantes on 09-02-2024 GFR/1.73 sq M.predicted among non-blacks MDRD (S/P/Bld) [Vol rate/Area] 13 mL/min/{1.73_m2} Low >60 [facility] Potassium measurement (mass/ volume)Ordered By: Salma Cervantes on 09-02-2024 Potassium (Unsp spec) [Mass/Vol] 4.8 mmol/L 3.3-5.1 [facility] Serum creatinine measurement (mass/volume)Ordered By: Salma Cervantes on 09-02-2024 Creatinine [Mass/Vol] 4.19 mg/dL High 0.70-1.20 [facility] [place] Serum glucose measurement (m ass/volume)Ordered By: Salma Cervantes on 09-02-2024 Glucose [Mass/Vol] 186 mg/dL High 70-99 [facility] Serum or plasma calcium lilli urement (mass/volume)Ordered By: Salma Cervantes on 09-02-2024 Calcium [Mass/Vol] 8.7 mg/dL 7.6-11.0 [facility] Serum or plasma urea nitroge n measurement (mass/volume)Ordered By: Salma Cervantes on 09-02-2024 Urea nitrogen [Mass/Vol] 57 mg/dL High 4-19 [facility] Sodium levelOrdered By: Juan Cervantes on 09-02-2024 Sodium [Moles/Vol] 131 mmol/L Low 133-145 [facility] Bedside Glucoseon 09-01-2024 FINGERSTICK GLU 183 mg/dL High 74-106 [facility] Comment on above: Result Comment: FANG GEMENT OF PATIENT CARE PER NURSING PROTOCOL Performed By: #### L 501.080 ####[facility] [address] [facility] [address] FINGERSTICK GLU 230 mg/dL High 74-106 [facility] Comment on above: Result Comment: FANG GEMENT OF PATIENT CARE PER NURSING PROTOCOL Performed By: #### L 501.080 ####[facility] [address] [place], [address] FINGERSTICK GLU 103 mg/dL Normal 74-106 [facility] Comment on above: Result Comment: FANG GEMENT OF PATIENT CARE PER NURSING PROTOCOL Performed By: #### L 501.080 ####[facility] [address] [place], [address] FINGERSTICK GLU 216 mg/dL High 74-106 [facility] Comment on above: Result Comment: FANG GEMENT OF PATIENT CARE PER NURSING PROTOCOL Performed By: #### L 501.080 ####[facility] [address] [facility] [address] Serum or plasma vancomycin m easurement (mass/volume)Ordered By: Earl White on 09-01-2024 Vancomycin [Mass/Vol] 14.1 ug/mL 0.0-15.0 [facility] [place] Vancomycin, Random Levelon 0 09-01-2024 VANCO, RANDOM 14.1 ug/mL Normal 0.0-15.0 [facility] Comment on above: Result Comment: VANC OMYCIN STANDARD DRUG THERAPY: CRITICAL VALUE IS > 15.0 mg/LVANCOMYCIN HIGH INTENSITY THERAPY: CRITICAL VALUE IS > 20.0 mg/LPLEASE CONTACT PHARMACY SERVICES (#6389) FOR INTERPRETATIONOF RESULTS. THIS RESULT DOES NOT REPRESENT A PEAK OR TROUGHLEVEL FOR THIS DRUG. Performed By: #### L 501.8850 ####[facility] [address] [place], [address] AV Fistula/Dialysis Graft Sc anon 08-31-2024 AV Fistula/Dialysis Graft Scan Normal [facility] Bedside Glucoseon 08-31-2024 FINGERSTICK GLU 169 mg/dL High 74-106 [facility] Comment on above: Result Comment: FANG GEMENT OF PATIENT CARE PER NURSING PROTOCOL Performed By: #### L 501.080 ####[facility] [address] [place], [address] FINGERSTICK GLU 207 mg/dL High 74-106 [facility] Comment on above: Result Comment: FANG GEMENT OF PATIENT CARE PER NURSING PROTOCOL Performed By: #### L 501.080 ####[facility] [address] [place], [address] FINGERSTICK GLU 162 mg/dL High 74-106 [facility] Comment on above: Result Comment: FANG GEMENT OF PATIENT CARE PER NURSING PROTOCOL Performed By: #### L 501.080 ####[facility] [address] [place], [address] FINGERSTICK GLU 189 mg/dL High 74-106 [facility] Comment on above: Result Comment: FANG GEMENT OF PATIENT CARE PER NURSING PROTOCOL Performed By: #### L 501.080 ####[facility] [address] [place], [address] CBC W/Diff, Automatedon 08-21 Absolute Lymph 1.13 X10 3/uL Normal 0.83-4.51 [facility] Comment on above: Performed By: #### L 100.0100 ####[facility] [address] [place], [address] Absolute Neut 5.3 X10 3/uL Normal 2.0-7.7 [facility] Comment on above: Performed By: #### L 100.0100 ####[facility] [address] [place], [address] Basophils/100 WBC (Bld) 0.6 % Normal 0-1 [facility] Comment on above: Performed By: #### L 100.0100 ####[facility] [address] [place], [address] Eosinophils/100 WBC (Bld) 3.1 % Normal 0-5 [facility] Comment on above: Performed By: #### L 100.0100 ####[facility] [address] [place], [address] Erythrocyte distribution width (RBC) [Ratio] 16.1 % High 11.6-14.6 [facility] Comment on above: Performed By: #### L 100.0100 ####[facility] [address] [place], [address] Hematocrit (Bld) [Volume fraction] 26.1 % Low 40-54 [facility] Comment on above: Performed By: #### L 100.0100 ####[facility] [address] [place], [address] Hemoglobin (Bld) [Mass/Vol] 7.7 g/dL Low 13.0-16.5 [facility] Comment on above: Performed By: #### L 100.0100 ####[facility] [address] [place], [address] IG% 0.500 Normal 0.0-0.9 [facility] Comment on above: Result Comment: IG% - Immature Granulocytes (promyelocytes, myelocytes andmetamyelocytes) > 1% indicates that a LEFT SHIFT is Present. Performed By: #### L 100.0100 ####[facility] [address] [place], [address] Lymphocytes/100 WBC (Bld) 14.5 % Low 19-41 [facility] Comment on above: Performed By: #### L 100.0100 ####[facility] [address] [place], [address] MCH (RBC) [Entitic mass] 27.0 pg Normal 27.0-32.0 [facility] Comment on above: Performed By: #### L 100.0100 ####[facility] [address] [place], [address] MCHC (RBC) [Mass/Vol] 29.5 g/dL Low 32-36 [facility] [place] Comment on above: Performed By: #### L 100.0100 ####[facility] [address] [place], [address] MCV (RBC) [Entitic vol] 91.6 fL Normal 80-94 [facility] Comment on above: Performed By: #### L 100.0100 ####[facility] [address] [place], [address] Monocytes/100 WBC (Bld) 12.9 % High 0-10 [facility] Comment on above: Performed By: #### L 100.0100 ####[facility] [address] [place], [address] Neutrophils/100 WBC (Bld) 68.4 % Normal 47-70 [facility] Comment on above: Performed By: #### L 100.0100 ####[facility] [address] [place], [address] Nucleated RBC (Bld) [#/Vol] 0 10*3/uL Normal 0-5 [facility] Comment on above: Performed By: #### L 100.0100 ####[facility] [address] [place], [address] Platelet mean volume (Bld) [Entitic vol] 10.5 fL Normal 6.2-12.0 [facility] Comment on above: Performed By: #### L 100.0100 ####[facility] [address] [place], [address] Platelets (Bld) [#/Vol] 234 10*3/uL Normal 150-450 [facility] Comment on above: Performed By: #### L 100.0100 ####[facility] [address] [place], [address] RBC (Bld) [#/Vol] 2.85 10*6/uL Low 4.6-6.2 [facility] Comment on above: Performed By: #### L 100.0100 ####[facility] [address] [place], [address] RDW SD 53.4 fl High 35.1-43.9 [facility] Comment on above: Performed By: #### L 100.0100 ####[facility] [address] [place], [address] WBC (Bld) [#/Vol] 7.8 10*3/uL Normal 4.4-11.0 [facility] Comment on above: Performed By: #### L 100.0100 ####[facility] [address] [place], [address] Basic Metabolic Profile (BMP )on 08-30-2024 BUN/CRE 11.0 RATIO Normal 10-20 [facility] Comment on above: Performed By: #### L 500.2500, L100.0100 ####[facility] [address] [place], [address] Calcium [Mass/Vol] 8.7 mg/dL Normal 7.6-11.0 [facility] Comment on above: Performed By: #### L 500.2500, L100.0100 ####[facility] [address] [place], [address] Chloride [Moles/Vol] 92 mmol/L Low 98-108 [facility] Comment on above: Performed By: #### L 500.2500, L100.0100 ####[facility] [address] [place], [address] CO2 [Moles/Vol] 27.5 mmol/L Normal 21.0-32.0 [facility] Comment on above: Performed By: #### L 500.2500, L100.0100 ####[facility] [address] [place], [address] Creatinine [Mass/Vol] 5.42 mg/dL High 0.70-1.20 [facility] [place] Comment on above: Performed By: #### L 500.2500, L100.0100 ####[facility] [address] [place], [address] ECRCL 12.64 ml/min Low 50-250 [facility] Comment on above: Performed By: #### L 500.2500, L100.0100 ####[facility] [address] [place], [address] GAP 14 Normal 5-15 [facility] Comment on above: Performed By: #### L 500.2500, L100.0100 ####[facility] [address] [place], [address] GFR/1.73 sq M.predicted among non-blacks MDRD (S/P/Bld) [Vol rate/Area] 10 mL/min/{1.73_m2} Low >60 [facility] Comment on above: Result Comment: mL/m in/1.73m2 CKD-EPI Creatinine Equation (2020) Performed By: #### L 500.2500, L100.0100 ####[facility] [address] [place], [address] Glucose [Mass/Vol] 196 mg/dL High 70-99 [facility] Comment on above: Performed By: #### L 500.2500, L100.0100 ####[facility] [address] [place], [address] Potassium [Moles/Vol] 5.2 mmol/L High 3.3-5.1 [facility] [place] Comment on above: Performed By: #### L 500.2500, L100.0100 ####[facility] [address] [place], [address] Sodium [Moles/Vol] 134 mmol/L Normal 133-145 [facility] Comment on above: Performed By: #### L 500.2500, L100.0100 ####[facility] [address] [place], [address] Urea nitrogen [Mass/Vol] 60 mg/dL High 4-19 [facility] Comment on above: Performed By: #### L 500.2500, L100.0100 ####[facility] [address] [place], [address] Bedside Glucoseon 08-30-2024 FINGERSTICK GLU 285 mg/dL High 74-106 [facility] Comment on above: Result Comment: FANG GEMENT OF PATIENT CARE PER NURSING PROTOCOL Performed By: #### L 501.080 ####[facility] [address] [place], [address] FINGERSTICK GLU 287 mg/dL High 74-106 [facility] Comment on above: Result Comment: FANG GEMENT OF PATIENT CARE PER NURSING PROTOCOL Performed By: #### L 501.080 ####[facility] [address] [place], [address] FINGERSTICK GLU 192 mg/dL High 74-106 [facility] Comment on above: Result Comment: FANG GEMENT OF PATIENT CARE PER NURSING PROTOCOL Performed By: #### L 501.080 ####[facility] [address] [place], [address] FINGERSTICK GLU 195 mg/dL High 74-106 [facility] Comment on above: Result Comment: FANG GEMENT OF PATIENT CARE PER NURSING PROTOCOL Performed By: #### L 501.080 ####[facility] [address] [place], [address] CBC W/Diff, Automatedon 08-21 Absolute Lymph 1.31 X10 3/uL Normal 0.83-4.51 [facility] Comment on above: Performed By: #### L 500.2500, L100.0100 ####[facility] [address] [place], [address] Absolute Neut 7.1 X10 3/uL Normal 2.0-7.7 [facility] Comment on above: Performed By: #### L 500.2500, L100.0100 ####[facility] [address] [place], [address] Basophils/100 WBC (Bld) 0.5 % Normal 0-1 [facility] Comment on above: Performed By: #### L 500.2500, L100.0100 ####[facility] [address] [place], [address] Eosinophils/100 WBC (Bld) 0.9 % Normal 0-5 [facility] Comment on above: Performed By: #### L 500.2500, L100.0100 ####[facility] [address] [place], [address] Erythrocyte distribution width (RBC) [Ratio] 16.3 % High 11.6-14.6 [facility] Comment on above: Performed By: #### L 500.2500, L100.0100 ####[facility] [address] [place], [address] Hematocrit (Bld) [Volume fraction] 26.9 % Low 40-54 [facility] Comment on above: Performed By: #### L 500.2500, L100.0100 ####[facility] [address] [place], [address] Hemoglobin (Bld) [Mass/Vol] 7.9 g/dL Low 13.0-16.5 [facility] Comment on above: Performed By: #### L 500.2500, L100.0100 ####[facility] [address] [place], [address] IG% 0.600 Normal 0.0-0.9 [facility] Comment on above: Result Comment: IG% - Immature Granulocytes (promyelocytes, myelocytes andmetamyelocytes) > 1% indicates that a LEFT SHIFT is Present. Performed By: #### L 500.2500, L100.0100 ####[facility] [address] [place], [address] Lymphocytes/100 WBC (Bld) 13.4 % Low 19-41 [facility] Comment on above: Performed By: #### L 500.2500, L100.0100 ####[facility] [address] [place], [address] MCH (RBC) [Entitic mass] 26.8 pg Low 27.0-32.0 [facility] Comment on above: Performed By: #### L 500.2500, L100.0100 ####[facility] [address] [place], [address] MCHC (RBC) [Mass/Vol] 29.4 g/dL Low 32-36 [facility] Comment on above: Performed By: #### L 500.2500, L100.0100 ####[facility] [address] [place], [address] MCV (RBC) [Entitic vol] 91.2 fL Normal 80-94 [facility] Comment on above: Performed By: #### L 500.2500, L100.0100 ####[facility] [address] [place], [address] Monocytes/100 WBC (Bld) 12.2 % High 0-10 [facility] Comment on above: Performed By: #### L 500.2500, L100.0100 ####[facility] [address] [place], [address] Neutrophils/100 WBC (Bld) 72.4 % High 47-70 [facility] Comment on above: Performed By: #### L 500.2500, L100.0100 ####[facility] [address] [place], [address] Nucleated RBC (Bld) [#/Vol] 0 10*3/uL Normal 0-5 [facility] Comment on above: Performed By: #### L 500.2500, L100.0100 ####[facility] [address] [place], [address] Platelet mean volume (Bld) [Entitic vol] 10.7 fL Normal 6.2-12.0 [facility] Comment on above: Performed By: #### L 500.2500, L100.0100 ####[facility] [address] [place], [address] Platelets (Bld) [#/Vol] 279 10*3/uL Normal 150-450 [facility] Comment on above: Performed By: #### L 500.2500, L100.0100 ####[facility] [address] [place], [address] RBC (Bld) [#/Vol] 2.95 10*6/uL Low 4.6-6.2 [facility] Comment on above: Performed By: #### L 500.2500, L100.0100 ####[facility] [address] [place], [address] RDW SD 54.3 fl High 35.1-43.9 [facility] Comment on above: Performed By: #### L 500.2500, L100.0100 ####[facility] [address] [place], [address] WBC (Bld) [#/Vol] 9.8 10*3/uL Normal 4.4-11.0 [facility] Comment on above: Performed By: #### L 500.2500, L100.0100 ####[facility] [address] [place], [address] Consultation - Nephrologyon 08-30-2024 Consultation - Nephrology Normal [facility] Vancomycin, Random Levelon 0 08-30-2024 VANCO, RANDOM 12.3 ug/mL Normal 0.0-15.0 [facility] Comment on above: Result Comment: VANC OMYCIN STANDARD DRUG THERAPY: CRITICAL VALUE IS > 15.0 mg/LVANCOMYCIN HIGH INTENSITY THERAPY: CRITICAL VALUE IS > 20.0 mg/LPLEASE CONTACT PHARMACY SERVICES (#7357) FOR INTERPRETATIONOF RESULTS. THIS RESULT DOES NOT REPRESENT A PEAK OR TROUGHLEVEL FOR THIS DRUG. Performed By: #### L 501.8850 ####[facility] [address] [place], [address] Bedside Glucoseon 08-29-2024 FINGERSTICK GLU 218 mg/dL High 74-106 [facility] Comment on above: Result Comment: FANG GEMENT OF PATIENT CARE PER NURSING PROTOCOL Performed By: #### L 501.080 ####[facility] [address] [place], [address] FINGERSTICK GLU 236 mg/dL High [address] [place] [address] Comment on above: Result Comment: FANG GEMENT OF PATIENT CARE PER NURSING PROTOCOL Performed By: #### L 501.080 ####[facility] [address] [place], [address] FINGERSTICK GLU 220 mg/dL High [facility]106 [facility] Comment on above: Result Comment: FANG GEMENT OF PATIENT CARE PER NURSING PROTOCOL Performed By: #### L 501.080 ####[facility] [address] [place], [address] FINGERSTICK GLU 175 mg/dL High [address] [place] [address] Comment on above: Result Comment: FANG GEMENT OF PATIENT CARE PER NURSING PROTOCOL Performed By: #### L 501.080 ####[facility] [address] [place], [address] Decalcification bone/plaqueo n 08-29-2024 Decalcification bone/plaque Normal [facility] Comment on above: Performed By: #### P DEC ####[facility] [address] [place], [address] H AND P Exam - Surgicalon H&P Exam - Surgical Normal [facility] MR/POSTOP.ANEon 08-29-2024 MR/POSTOP.ANE Normal [facility] MR/IIUGYPHQ7jt 08-29-2024 MR/POSTOPAN2 Normal [facility] Operative Reporton Operative Report Normal [facility] BRCon 08-28-2024 RC Normal [facility] Comment on above: Result Comment: [id number] AP RC XM COMPATIBLE Performed By: #### B TSPAT, L500.2500, [facility], L100.0500 ####[facility] [address] 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, [address] Calcium [Mass/Vol] 9.0 mg/dL Normal 7.6-11.0 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, [address] Glucose [Mass/Vol] 93 mg/dL Normal 70-99 [facility] Comment on above: Order Comment: 400.1 Amputation Below Knee (Right) Performed By: #### B TSPAT, L500.2500, [facility], L100.0500 ####[facility] [address] [place], [address] Potassium [Moles/Vol] 4.4 mmol/L Normal 3.3-5.1 [facility] Comment on above: Order Comment: 400.1 Amputation Below Knee (Right) Performed By: #### B TSPAT, L500.2500, [facility], L100.0500 ####[facility] [address] [place], [address] Sodium [Moles/Vol] 134 mmol/L Normal 133-145 [facility] Comment on above: Order Comment: 400.1 Amputation Below Knee (Right) Performed By: #### B TSPAT, L500.2500, [facility], L100.0500 ####[facility] [address] 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, [address] CBC-Complete Blood Cnt No Di ffon 08-28-2024 Erythrocyte distribution width (RBC) [Ratio] 16.2 % High 11.6-14.6 [facility] Comment on above: Order Comment: 400.1 Performed By: #### B TSPAT, L500.2500, [facility], L100.0500 ####[facility] [address] [place], [address] Hematocrit (Bld) [Volume fraction] 30.6 % Low 40-54 [facility] Comment on above: Order Comment: 400.1 Performed By: #### B TSPAT, L500.2500, [facility], L100.0500 ####[facility] [address] [place], [address] Hemoglobin (Bld) [Mass/Vol] 9.1 g/dL Low 13.0-16.5 [facility] Comment on above: Order Comment: 400.1 Performed By: #### B TSPAT, L500.2500, [facility], L100.0500 ####[facility] [address] [place], [address] MCH (RBC) [Entitic mass] 26.9 pg Low 27.0-32.0 [facility] Comment on above: Order Comment: 400.1 Performed By: #### B TSPAT, L500.2500, [facility], L100.0500 ####[facility] [address] [place], [address] MCHC (RBC) [Mass/Vol] 29.7 g/dL Low 32-36 [facility] Comment on above: Order Comment: 400.1 Performed By: #### B TSPAT, L500.2500, [facility], L100.0500 ####[facility] [address] [place], [address] MCV (RBC) [Entitic vol] 90.5 fL Normal 80-94 [facility] Comment on above: Order Comment: 400.1 Performed By: #### Too TSPAT, L500.2500, [facility], L100.0500 ####[facility] [address] [place], [address] Platelet mean volume (Bld) [Entitic vol] 10.5 fL Normal 6.2-12.0 [facility] Comment on above: Order Comment: 400.1 Performed By: #### Too TSPAT, L500.2500, [facility], L100.0500 ####[facility] [address] [place], [address] Platelets (Bld) [#/Vol] 321 10*3/uL Normal 150-450 [facility] Comment on above: Order Comment: 400.1 Performed By: #### B TSPAT, L500.2500, [facility], L100.0500 ####[facility] [address] [place], [address] RBC (Bld) [#/Vol] 3.38 10*6/uL Low 4.6-6.2 [facility] Comment on above: Order Comment: 400.1 Performed By: #### B TSPAT, L500.2500, [facility], L100.0500 ####[facility] [address] [place], [address] RDW SD 53.1 fl High 35.1-43.9 [facility] Comment on above: Order Comment: 400.1 Performed By: #### B TSPAT, L500.2500, [facility], L100.0500 ####[facility] [address] [place], [address] WBC (Bld) [#/Vol] 9.5 10*3/uL Normal 4.4-11.0 [facility] Comment on above: Order Comment: 400.1 Performed By: #### B TSPAT, L500.2500, [facility], L100.0500 ####[facility] [address] [place], [address] MR/PAT.ANEon 08-28-2024 MR/PAT.ANE Normal [facility] Type AND Screen - PAT ONLYon 08-28-2024 Ab SCREEN GEL Negative Normal [facility] Comment on above: Order Comment: SURGE RY DATE 08/29/2024 Amputation Below Knee (Right)[id number] Below Knee (Right)[id number] Below Knee (Right)TURNEYOTHER Performed By: #### B TSPAT, L500.2500, [facility], L100.0500 ####[facility] [address] [place], [address] Absolute lymphocyte countOrd ered By: Nando Wiggins on 08-27-2024 Lymphocytes Auto (Unsp spec) [#/Vol] 1.45 10*3/uL 0.83-4.51 [facility] Anion gap in Serum or Plasma Ordered By: Nando Wiggins on 08-27-2024 Anion gap [Moles/Vol] 15 mmol/L 5-15 [facility] Automated lymphocyte count a s percentage of total leukocytesOrdered By: Nando Wiggins on 08-27-2024 Lymphocytes/100 WBC Auto (Unsp spec) 16.0 % Low 19-41 [facility] BUN/creatinine ratioOrdered By: Nando Wiggins on 08-27-2024 Urea nitrogen/Creatinine [Mass ratio] 10.5 mg/mg 10-20 [facility] Basophil percentageOrdered B y: Nando Wiggins on 08-27-2024 Basophils/100 WBC (Bld) 0.6 % 0-1 [facility] Carbon dioxide, total [Moles /volume] in Central venous bloodOrdered By: Nadno Wiggins on 08-27-2024 CO2 [Moles/Vol] 26.5 mmol/L 21.0-32.0 [facility] Chloride assayOrdered By: Kathie Wiggins on 08-27-2024 Chloride [Moles/Vol] 94 mmol/L Low 98-108 [facility] Eosinophil percentageOrdered By: Nando Wiggins on 08-27-2024 Eosinophils/100 WBC (Bld) 2.3 % 0-5 [facility] Erythrocyte distribution wid th ratioOrdered By: Nando Wiggins on 08-27-2024 Erythrocyte distribution width (RBC) [Ratio] 16.3 % High 11.6-14.6 [facility] Erythrocyte distribution wid th standard deviationOrdered By: Nando Wiggins on 08-27-2024 Erythrocyte distribution width (RBC) [Ratio] 54.3 fl High 35.1-43.9 [facility] Glomerular filtration rate ( GFR) estimation/1.73 sq m using serum, plasma, or whole bOrdered By: Nando Wiggins on 08-27-2024 GFR/1.73 sq M.predicted among non-blacks MDRD (S/P/Bld) [Vol rate/Area] 10 mL/min/{1.73_m2} Low >60 [facility] Hematocrit Auto (Bld) [Volum e fraction]Ordered By: Nando Wiggins on 08-27-2024 Hematocrit (Bld) [Volume fraction] 30.4 % Low 40-54 [facility] Hemoglobin measurementOrdere d By: Nando Wiggins on 08-27-2024 Hemoglobin (Bld) [Mass/Vol] 9.0 g/dL Low 13.0-16.5 [facility] Immature granulocytes/100 WB C Auto (Bld)Ordered By: Nando Wiggins on 08-27-2024 Immature granulocytes/100 WBC (Bld) 0.700 % 0.0-0.9 [facility] MCV (mean corpuscular volume ) determinationOrdered By: Nando Wiggins on 08-27-2024 MCV (RBC) [Entitic vol] 91.3 fL 80-94 [facility] Mean corpuscular hemoglobin (MCH) determinationOrdered By: Nando Wiggins on 08-27-2024 MCH (RBC) [Entitic mass] 27.0 pg 27.0-32.0 [facility] Monocyte percentageOrdered B y: Nando Wiggins on 08-27-2024 Monocytes/100 WBC (Bld) 10.7 % High 0-10 [facility] Neutrophil percentageOrdered By: Nando Wiggins on 08-27-2024 Neutrophils/100 WBC (Bld) 69.7 % 47-70 [facility] Platelet countOrdered By: Kathie rehanwolf Wiggins on 08-27-2024 Platelets (Bld) [#/Vol] 300 10*3/uL 150-450 [facility] Potassium measurement (mass/ volume)Ordered By: Nando Wiggins on 08-27-2024 Potassium (Unsp spec) [Mass/Vol] 3.7 mmol/L 3.3-5.1 [facility] RBC Auto (Bld) [#/Vol]Ordere d By: Nando Wiggins on 08-27-2024 RBC (Bld) [#/Vol] 3.33 10*6/uL Low 4.6-6.2 [facility] Serum creatinine measurement (mass/volume)Ordered By: Nando Wiggins on 08-27-2024 Creatinine [Mass/Vol] 5.29 mg/dL High 0.70-1.20 [facility] Serum glucose measurement (m ass/volume)Ordered By: Nando Wiggins on 08-27-2024 Glucose [Mass/Vol] 261 mg/dL High 70-99 [facility] Serum or plasma calcium lilli urement (mass/volume)Ordered By: Nando Wiggins on 08-27-2024 Calcium [Mass/Vol] 8.8 mg/dL 7.6-11.0 [facility] Serum or plasma urea nitroge n measurement (mass/volume)Ordered By: Kathiebiancalilian Meeklakshmidesiree on 08-27-2024 Urea nitrogen [Mass/Vol] 55 mg/dL High 4-19 [facility] Sodium levelOrdered By: Deb quintana Meeklakshmidesiree on 08-27-2024 Sodium [Moles/Vol] 135 mmol/L 133-145 [facility] White blood cell (WBC) count Ordered By: Kathiebiancalilian Meekcheko on 08-27-2024 WBC (Bld) [#/Vol] 9.0 10*3/uL 4.4-11.0 [facility] Absolute lymphocyte countOrd ered By: Deblilian Meeklakshmidesiree on 08-20-2024 Lymphocytes Auto (Unsp spec) [#/Vol] 2.15 10*3/uL 0.83-4.51 [facility] Anion gap in Serum or Plasma Ordered By: Kathiebiancasrinathwolf Edenlakshmidesiree on 08-20-2024 Anion gap [Moles/Vol] 15 mmol/L 5-15 [facility] Automated lymphocyte count a s percentage of total leukocytesOrdered By: Kathiebiancasrinathwolf Edenlakshmidesiree on 08-20-2024 Lymphocytes/100 WBC Auto (Unsp spec) 25.2 % 19-41 [facility] BUN/creatinine ratioOrdered By: Kathiebiancasrinathwolf Edenl[address]shmidesiree on 08-20-2024 Urea nitrogen/Creatinine [Mass ratio] 12.6 mg/mg 10-20 [facility] Basophil percentageOrdered B y: Nando Wiggins on 08-20-2024 Basophils/100 WBC (Bld) 0.8 % 0-1 [facility] Carbon dioxide, total [Moles /volume] in Central venous bloodOrdered By: Kathiefili Edenlakshmidesiree on 08-20-2024 CO2 [Moles/Vol] 26.9 mmol/L 21.0-32.0 [facility] Chloride assayOrdered By: Kathie biancalilian Wiggins on 08-20-2024 Chloride [Moles/Vol] 93 mmol/L Low 98-108 [facility] Eosinophil percentageOrdered By: Nando Wiggins on 08-20-2024 Eosinophils/100 WBC (Bld) 2.2 % 0-5 [facility] Erythrocyte distribution wid th ratioOrdered By: Nando Wiggins on 08-20-2024 Erythrocyte distribution width (RBC) [Ratio] 16.0 % High 11.6-14.6 [facility] Erythrocyte distribution wid th standard deviationOrdered By: biancacollege parkwolf Wiggins on 08-20-2024 Erythrocyte distribution width (RBC) [Ratio] 54.5 fl High 35.1-43.9 [facility] Glomerular filtration rate ( GFR) estimation/1.73 sq m using serum, plasma, or whole bOrdered By: Nando Wiggins on 08-20-2024 GFR/1.73 sq M.predicted among non-blacks MDRD (S/P/Bld) [Vol rate/Area] 12 mL/min/{1.73_m2} Low >60 [facility] Hematocrit Auto (Bld) [Volum e fraction]Ordered By: Nando Wiggins on 08-20-2024 Hematocrit (Bld) [Volume fraction] 30.9 % Low 40-54 [facility] Hemoglobin measurementOrdere d By: Nando Wiggins on 08-20-2024 Hemoglobin (Bld) [Mass/Vol] 9.2 g/dL Low 13.0-16.5 [facility] Immature granulocytes/100 WB C Auto (Bld)Ordered By: Nando Wiggins on 08-20-2024 Immature granulocytes/100 WBC (Bld) 0.800 % 0.0-0.9 [facility] MCV (mean corpuscular volume ) determinationOrdered By: Nando Wiggins on 08-20-2024 MCV (RBC) [Entitic vol] 92.2 fL 80-94 [facility] Mean corpuscular hemoglobin (MCH) determinationOrdered By: Nando Wiggins 08-20-2024 MCH (RBC) [Entitic mass] 27.5 pg 27.0-32.0 [facility] Monocyte percentageOrdered B y: Kathiebiancalilian Meekcheko on 08-20-2024 Monocytes/100 WBC (Bld) 8.3 % 0-10 [facility] Neutrophil percentageOrdered By: Kathiebiancalilian Meeklakshmidesiree on 08-20-2024 Neutrophils/100 WBC (Bld) 62.7 % 47-70 [facility] Platelet countOrdered By: Kathie fili Meeklakshmidesiree on 08-20-2024 Platelets (Bld) [#/Vol] 321 10*3/uL 150-450 [facility] Potassium measurement (mass/ volume)Ordered By: Nando Wiggins on 08-20-2024 Potassium (Unsp spec) [Mass/Vol] 4.1 mmol/L 3.3-5.1 [facility] RBC Auto (Bld) [#/Vol]Ordere d By: Deblilian Meeklakshmidesiree on 08-20-2024 RBC (Bld) [#/Vol] 3.35 10*6/uL Low 4.6-6.2 [facility] Serum creatinine measurement (mass/volume)Ordered By: Nando Wiggins on 08-20-2024 Creatinine [Mass/Vol] 4.37 mg/dL High 0.70-1.20 [facility] Serum glucose measurement (m ass/volume)Ordered By: Nando Wiggins on 08-20-2024 Glucose [Mass/Vol] 85 mg/dL 70-99 [facility] Serum or plasma calcium lilli urement (mass/volume)Ordered By: Nando Wiggins on 08-20-2024 Calcium [Mass/Vol] 9.3 mg/dL 7.6-11.0 [facility] Serum or plasma urea nitroge n measurement (mass/volume)Ordered By: Nando Wiggins on 08-20-2024 Urea nitrogen [Mass/Vol] 55 mg/dL High 4-19 [facility] Sodium levelOrdered By: Deb rosejeremie Rosalie on 08-20-2024 Sodium [Moles/Vol] 134 mmol/L 133-145 [facility] White blood cell (WBC) count Ordered By: Nando Wiggins on 08-20-2024 WBC (Bld) [#/Vol] 8.5 10*3/uL 4.4-11.0 [facility] Absolute lymphocyte countOrd ered By: Nando Wiggins on 08-13-2024 Lymphocytes Auto (Unsp spec) [#/Vol] 1.80 10*3/uL 0.83-4.51 [facility] Anion gap in Serum or Plasma Ordered By: Nando Wiggins on 08-13-2024 Anion gap [Moles/Vol] 15 mmol/L 5-15 [facility] Automated lymphocyte count a s percentage of total leukocytesOrdered By: Nnado Wiggins on 08-13-2024 Lymphocytes/100 WBC Auto (Unsp spec) 22.5 % 19-41 [facility] BUN/creatinine ratioOrdered By: Nando Wiggins on 08-13-2024 Urea nitrogen/Creatinine [Mass ratio] 8.8 mg/mg Low 10-20 [facility] Basophil percentageOrdered B y: Nando Wiggins on 08-13-2024 Basophils/100 WBC (Bld) 0.5 % 0-1 [facility] Bilirubin directOrdered By: Nando Wiggins on 08-13-2024 Bilirubin.direct [Mass/Vol] mg/dL 0.00-0.30 [facility] Bilirubin, totalOrdered By: Nando Wiggins on 08-13-2024 Bilirubin [Mass/Vol] 0.25 mg/dL 0.00-1.30 [facility] Carbon dioxide, total [Moles /volume] in Central venous bloodOrdered By: Nando Wiggins on 08-13-2024 CO2 [Moles/Vol] 25.2 mmol/L 21.0-32.0 [facility] Chloride assayOrdered By: Kathie Wiggins on 08-13-2024 Chloride [Moles/Vol] 94 mmol/L Low 98-108 [facility] Eosinophil percentageOrdered By: Nando Wiggins on 08-13-2024 Eosinophils/100 WBC (Bld) 2.6 % 0-5 [facility] Erythrocyte distribution wid th ratioOrdered By: Nando Wiggins on 08-13-2024 Erythrocyte distribution width (RBC) [Ratio] 16.8 % High 11.6-14.6 [facility] Erythrocyte distribution wid th standard deviationOrdered By: Nando Wiggins on 08-13-2024 Erythrocyte distribution width (RBC) [Ratio] 57.7 fl High 35.1-43.9 [facility] Glomerular filtration rate ( GFR) estimation/1.73 sq m using serum, plasma, or whole bOrdered By: Nando Wiggins on 08-13-2024 GFR/1.73 sq M.predicted among non-blacks MDRD (S/P/Bld) [Vol rate/Area] 13 mL/min/{1.73_m2} Low >60 [facility] Hematocrit Auto (Bld) [Volum e fraction]Ordered By: Debcollege parkwolf Wiggins on 08-13-2024 Hematocrit (Bld) [Volume fraction] 28.8 % Low 40-54 [facility] Hemoglobin A1c percentageOrd ered By: Nando Wiggins on 08-13-2024 HbA1c (Bld) [Mass fraction] 6.1 % >5.7 [facility] Hemoglobin measurementOrdere d By: Nando Wiggins on 08-13-2024 Hemoglobin (Bld) [Mass/Vol] 8.6 g/dL Low 13.0-16.5 [facility] Immature granulocytes/100 WB C Auto (Bld)Ordered By: Nando Wiggins on 08-13-2024 Immature granulocytes/100 WBC (Bld) 0.400 % 0.0-0.9 [facility] MCV (mean corpuscular volume ) determinationOrdered By: Nando Wiggins on 08-13-2024 MCV (RBC) [Entitic vol] 94.4 fL High 80-94 [facility] Mean corpuscular hemoglobin (MCH) determinationOrdered By: Nando Wiggins on 08-13-2024 MCH (RBC) [Entitic mass] 28.2 pg 27.0-32.0 [facility] Monocyte percentageOrdered B y: Nando Wiggins on 08-13-2024 Monocytes/100 WBC (Bld) 10.7 % High 0-10 [facility] Neutrophil percentageOrdered By: Nando Wiggins on 08-13-2024 Neutrophils/100 WBC (Bld) 63.3 % 47-70 [facility] No Panel InformationOrdered By: Nando Wiggins on 08-13-2024 18 U/L <38 [facility] Platelet countOrdered By: Kathie Wiggins on 08-13-2024 Platelets (Bld) [#/Vol] 265 10*3/uL 150-450 [facility] Potassium measurement (mass/ volume)Ordered By: Nando Wiggins on 08-13-2024 Potassium (Unsp spec) [Mass/Vol] 3.9 mmol/L 3.3-5.1 [facility] RBC Auto (Bld) [#/Vol]Ordere d By: Nando Wiggins on 08-13-2024 RBC (Bld) [#/Vol] 3.05 10*6/uL Low 4.6-6.2 [facility] Serum creatinine measurement (mass/volume)Ordered By: Nando Wiggins on 08-13-2024 Creatinine [Mass/Vol] 4.28 mg/dL High 0.70-1.20 [facility] [place] Serum globulin measurementOr dered By: Nando Wiggins on 08-13-2024 Globulin (S) [Mass/Vol] 3.8 g/dL 2.2-4.2 [facility] Serum glucose measurement (m ass/volume)Ordered By: Nando Wiggins on 08-13-2024 Glucose [Mass/Vol] 96 mg/dL 70-99 [facility] Serum or plasma alanine hawkins otransferase (ALT) measurementOrdered By: Nando Wiggins on 08-13-2024 ALT [Catalytic activity/Vol] 8 U/L <47 [facility] Serum or plasma albumin lilli urement (mass/volume)Ordered By: Nando Wiggins on 08-13-2024 Albumin [Mass/Vol] 2.8 g/dL Low 3.4-4.8 [facility] Serum or plasma alkaline penelope sphatase measurementOrdered By: Nando Wiggins on 08-13-2024 ALP [Catalytic activity/Vol] 56 U/L 40-129 [facility] Serum or plasma calcium lilli urement (mass/volume)Ordered By: Kathiefili Edenlakshmidesiree on 08-13-2024 Calcium [Mass/Vol] 9.0 mg/dL 7.6-11.0 [facility] Serum or plasma urea nitroge n measurement (mass/volume)Ordered By: Kathiefili Wiggins on 08-13-2024 Urea nitrogen [Mass/Vol] 38 mg/dL High 4-19 [facility] Sodium levelOrdered By: Deb quintana Rosalie on 08-13-2024 Sodium [Moles/Vol] 134 mmol/L 133-145 [facility] Total proteinOrdered By: Sinan carmenwolf Wiggins on 08-13-2024 Protein [Mass/Vol] 6.6 g/dL 5.9-8.4 [facility] Vitamin B12 ser/plasOrdered By: Kathiebiancalilian Mekelakshmidesiree on 08-13-2024 Cobalamin (Vitamin B12) [Mass/Vol] 782 pg/mL 180-914 [facility] White blood cell (WBC) count Ordered By: Kathiebiancasrinathwolf Wiggins on 08-13-2024 WBC (Bld) [#/Vol] 8.0 10*3/uL 4.4-11.0 [facility] Absolute lymphocyte countOrd ered By: Nando Wiggins on 08-06-2024 Lymphocytes Auto (Unsp spec) [#/Vol] 1.82 10*3/uL 0.83-4.51 [facility] Anion gap in Serum or Plasma Ordered By: Kathiebiancasrinathwolf Edenlakshmidesiree on 08-06-2024 Anion gap [Moles/Vol] 14 mmol/L 5-15 [facility] [place] Automated lymphocyte count a s percentage of total leukocytesOrdered By: Kathiefili Wiggins on 08-06-2024 Lymphocytes/100 WBC Auto (Unsp spec) 19.7 % 19-41 [facility] BUN/creatinine ratioOrdered By: Debsrinathwolf Wiggins on 08-06-2024 Urea nitrogen/Creatinine [Mass ratio] 11.0 mg/mg 10-20 [facility] Basophil percentageOrdered B y: Nando Wiggins on 08-06-2024 Basophils/100 WBC (Bld) 0.4 % 0-1 [facility] Carbon dioxide, total [Moles /volume] in Central venous bloodOrdered By: Nando Wiggins on 08-06-2024 CO2 [Moles/Vol] 26.0 mmol/L 21.0-32.0 [facility] Chloride assayOrdered By: Kathie Wiggins on 08-06-2024 Chloride [Moles/Vol] 92 mmol/L Low 98-108 [facility] Eosinophil percentageOrdered By: Nando Wiggins on 08-06-2024 Eosinophils/100 WBC (Bld) 2.6 % 0-5 [facility] Erythrocyte distribution wid th ratioOrdered By: Nando Wiggins on 08-06-2024 Erythrocyte distribution width (RBC) [Ratio] 16.6 % High 11.6-14.6 [facility] Erythrocyte distribution wid th standard deviationOrdered By: Nando Wiggins on 08-06-2024 Erythrocyte distribution width (RBC) [Ratio] 56.6 fl High 35.1-43.9 [facility] Glomerular filtration rate ( GFR) estimation/1.73 sq m using serum, plasma, or whole bOrdered By: Nando Wiggins on 08-06-2024 GFR/1.73 sq M.predicted among non-blacks MDRD (S/P/Bld) [Vol rate/Area] 12 mL/min/{1.73_m2} Low >60 [facility] Hematocrit Auto (Bld) [Volum e fraction]Ordered By: Nando Wiggins on 08-06-2024 Hematocrit (Bld) [Volume fraction] 27.3 % Low 40-54 [facility] Hemoglobin measurementOrdere d By: Nando Wiggins on 08-06-2024 Hemoglobin (Bld) [Mass/Vol] 8.1 g/dL Low 13.0-16.5 [facility] Immature granulocytes/100 WB C Auto (Bld)Ordered By: Nando Wiggins on 08-06-2024 Immature granulocytes/100 WBC (Bld) 1.000 % High 0.0-0.9 [facility] MCV (mean corpuscular volume ) determinationOrdered By: Kathiebiancasrinathwolf Wiggins on 08-06-2024 MCV (RBC) [Entitic vol] 93.5 fL 80-94 [facility] Mean corpuscular hemoglobin (MCH) determinationOrdered By: Nando Meekcheko on 08-06-2024 MCH (RBC) [Entitic mass] 27.7 pg 27.0-32.0 [facility] Monocyte percentageOrdered B y: Brianwolf dEenlakshmidesiree on 08-06-2024 Monocytes/100 WBC (Bld) 12.1 % High 0-10 [facility] Neutrophil percentageOrdered By: fili Meekcheko on 08-06-2024 Neutrophils/100 WBC (Bld) 64.2 % 47-70 [facility] Platelet countOrdered By: Kathie fili Meeklakshmidesiree on 08-06-2024 Platelets (Bld) [#/Vol] 263 10*3/uL 150-450 [facility] Potassium measurement (mass/ volume)Ordered By: Nando Wiggins on 08-06-2024 Potassium (Unsp spec) [Mass/Vol] 3.4 mmol/L 3.3-5.1 [facility] RBC Auto (Bld) [#/Vol]Ordere d By: Nando Meekcheko on 08-06-2024 RBC (Bld) [#/Vol] 2.92 10*6/uL Low 4.6-6.2 [facility] Serum creatinine measurement (mass/volume)Ordered By: Nando Wiggins on 08-06-2024 Creatinine [Mass/Vol] 4.43 mg/dL High 0.70-1.20 [facility] [place] Serum glucose measurement (m ass/volume)Ordered By: Kathiebiancasrinathwolf Wiggins on 08-06-2024 Glucose [Mass/Vol] 318 mg/dL High 70-99 [facility] Serum or plasma calcium lilli urement (mass/volume)Ordered By: Nando Wiggins on 08-06-2024 Calcium [Mass/Vol] 8.7 mg/dL 7.6-11.0 [facility] Serum or plasma urea nitroge n measurement (mass/volume)Ordered By: Nando Wiggins on 08-06-2024 Urea nitrogen [Mass/Vol] 49 mg/dL High 4-19 [facility] Sodium levelOrdered By: Deb Wiggins on 08-06-2024 Sodium [Moles/Vol] 131 mmol/L Low 133-145 [facility] White blood cell (WBC) count Ordered By: Kathiebiancalilian Brownedesiree on 08-06-2024 WBC (Bld) [#/Vol] 9.3 10*3/uL 4.4-11.0 [facility] Absolute lymphocyte countOrd ered By: Desjovan Garcia on 08-01-2024 Lymphocytes Auto (Unsp spec) [#/Vol] 1.79 10*3/uL 0.83-4.51 [facility] Automated blood erythrocyte countOrdered By: Des Garcia on 08-01-2024 RBC (Bld) [#/Vol] 2.95 10*6/uL Low 4.6-6.2 [facility] Comment on above: Performed By: #### L 100.0100 ####[facility] [address] [place], [place], [id number] Automated blood hematocrit ( percentage)Ordered By: Des Garcia on 08-01-2024 Hematocrit (Bld) [Volume fraction] 27.6 % Low 40-54 [facility] Comment on above: Performed By: #### L 100.0100 ####[facility] [address] [place], [place], [id number] Automated lymphocyte count a s percentage of total leukocytesOrdered By: Des Garcia on 08-01-2024 Lymphocytes/100 WBC Auto (Unsp spec) 20.9 % 19-41 [facility] Basophil percentageOrdered B y: Des Garcia on 08-01-2024 Basophils/100 WBC (Bld) 0.7 % Normal 0-1 [facility] Comment on above: Performed By: #### L 100.0100 ####[facility] [address] [place], [address] CBC W/Diff, Automatedon 07-21 Absolute Lymph 1.79 X10 3/uL Normal 0.83-4.51 [facility] Comment on above: Performed By: #### L 100.0100 ####[facility] [address] [place], [address] Absolute Neut 5.3 X10 3/uL Normal 2.0-7.7 [facility] Comment on above: Performed By: #### L 100.0100 ####[facility] [address] [place], [address] IG% 0.500 Normal 0.0-0.9 [facility] Comment on above: Result Comment: IG% - Immature Granulocytes (promyelocytes, myelocytes andmetamyelocytes) > 1% indicates that a LEFT SHIFT is Present. Performed By: #### L 100.0100 ####[facility] [address] [place], [address] Lymphocytes/100 WBC (Bld) 20.9 % Normal 19-41 [facility] Comment on above: Performed By: #### L 100.0100 ####[facility] [address] [place], [address] MCHC (RBC) [Mass/Vol] 29.3 g/dL Low 32-36 [facility] [place] Comment on above: Performed By: #### L 100.0100 ####[facility] [address] [place], [address] Nucleated RBC (Bld) [#/Vol] 0 10*3/uL Normal 0-5 [facility] Comment on above: Performed By: #### L 100.0100 ####[facility] [address] [place], [address] Platelet mean volume (Bld) [Entitic vol] 10.6 fL Normal 6.2-12.0 [facility] Comment on above: Performed By: #### L 100.0100 ####[facility] [address] [place], [place], [id number] RDW SD 57.8 fl High 35.1-43.9 [facility] Comment on above: Performed By: #### L 100.0100 ####[facility] [address] [place], [address] Emergency Department Summary on 08-01-2024 Emergency Department Summary Normal [facility] Eosinophil percentageOrdered By: Des Garcia on 08-01-2024 Eosinophils/100 WBC (Bld) 3.9 % Normal 0-5 [facility] Comment on above: Performed By: #### L 100.0100 ####[facility] [address] [place], [address] Erythrocyte distribution wid th ratioOrdered By: Des Garcia on 08-01-2024 Erythrocyte distribution width (RBC) [Ratio] 16.9 % High 11.6-14.6 [facility] Comment on above: Performed By: #### L 100.0100 ####[facility] [address] [place], [address] Erythrocyte distribution wid th standard deviationOrdered By: Des Garcia on 08-01-2024 Erythrocyte distribution width (RBC) [Ratio] 57.8 fl High 35.1-43.9 [facility] Foot min 3 Viewson 5 Foot min 3 Views Normal [facility] Hemoglobin measurementOrdere d By: Des Garcia on 08-01-2024 Hemoglobin (Bld) [Mass/Vol] 8.1 g/dL Low 13.0-16.5 [facility] Comment on above: Performed By: #### L 100.0100 ####[facility] [address] [place], [place], [phone] Immature granulocytes/100 WB C Auto (Bld)Ordered By: Des Garcia on 08-01-2024 Immature granulocytes/100 WBC (Bld) 0.500 % 0.0-0.9 [facility] MCV (mean corpuscular volume ) determinationOrdered By: Des Garcia on 08-01-2024 MCV (RBC) [Entitic vol] 93.6 fL Normal 80-94 [facility] Comment on above: Performed By: #### L 100.0100 ####[facility] [address] [place], [address] Mean corpuscular hemoglobin (MCH) determinationOrdered By: Des Garcia on 08-01-2024 MCH (RBC) [Entitic mass] 27.5 pg Normal 27.0-32.0 [facility] Comment on above: Performed By: #### L 100.0100 ####[facility] [address] [place], [address] Monocyte percentageOrdered B y: Des Garcia on 08-01-2024 Monocytes/100 WBC (Bld) 12.3 % High 0-10 [facility] Comment on above: Performed By: #### L 100.0100 ####[facility] [address] [place], [address] Neutrophil percentageOrdered By: Des Garcia on 08-01-2024 Neutrophils/100 WBC (Bld) 61.7 % Normal 47-70 [facility] Comment on above: Performed By: #### L 100.0100 ####[facility] [address] [place], [address] Platelet countOrdered By: Kana Garcia on 08-01-2024 Platelets (Bld) [#/Vol] 290 10*3/uL Normal 150-450 [facility] Comment on above: Performed By: #### L 100.0100 ####[facility] [address] [place], [address] White blood cell (WBC) count Ordered By: Des Garcia on 03-12-2025 WBC (Bld) [#/Vol] 8.6 10*3/uL Normal 4.4-11.0 [facility] Comment on above: Performed By: #### L 100.0100 ####[facility] [address] [place], [address] Absolute lymphocyte countOrd ered By: Nando Wiggins on 07-30-2024 Lymphocytes Auto (Unsp spec) [#/Vol] 1.74 10*3/uL 0.83-4.51 [facility] Anion gap in Serum or Plasma Ordered By: Nando Wiggins on 07-30-2024 Anion gap [Moles/Vol] 16 mmol/L High 5-15 [facility] [place] Automated lymphocyte count a s percentage of total leukocytesOrdered By: Nando Wiggins on 07-30-2024 Lymphocytes/100 WBC Auto (Unsp spec) 19.2 % 19-41 [facility] BUN/creatinine ratioOrdered By: Nando Wiggins on 07-30-2024 Urea nitrogen/Creatinine [Mass ratio] 8.4 mg/mg Low 10-20 [facility] Basophil percentageOrdered B y: Nando Wiggins on 07-30-2024 Basophils/100 WBC (Bld) 0.6 % 0-1 [facility] Carbon dioxide, total [Moles /volume] in Central venous bloodOrdered By: Nando Wiggins on 07-30-2024 CO2 [Moles/Vol] 26.4 mmol/L 21.0-32.0 [facility] Chloride assayOrdered By: Kathie Wiggins on 07-30-2024 Chloride [Moles/Vol] 91 mmol/L Low 98-108 [facility] Eosinophil percentageOrdered By: Nando Wiggins on 07-30-2024 Eosinophils/100 WBC (Bld) 2.8 % 0-5 [facility] Erythrocyte distribution wid th ratioOrdered By: Nando Wiggins on 07-30-2024 Erythrocyte distribution width (RBC) [Ratio] 17.2 % High 11.6-14.6 [facility] Erythrocyte distribution wid th standard deviationOrdered By: Nando Wiggins on 07-30-2024 Erythrocyte distribution width (RBC) [Ratio] 58.1 fl High 35.1-43.9 [facility] Glomerular filtration rate ( GFR) estimation/1.73 sq m using serum, plasma, or whole bOrdered By: Nando Wiggins on 07-30-2024 GFR/1.73 sq M.predicted among non-blacks MDRD (S/P/Bld) [Vol rate/Area] 13 mL/min/{1.73_m2} Low >60 [facility] Hematocrit Auto (Bld) [Volum e fraction]Ordered By: fili Wiggins on 07-30-2024 Hematocrit (Bld) [Volume fraction] 26.5 % Low 40-54 [facility] Hemoglobin measurementOrdere d By: Nando Wiggins on 07-30-2024 Hemoglobin (Bld) [Mass/Vol] 8.1 g/dL Low 13.0-16.5 [facility] Immature granulocytes/100 WB C Auto (Bld)Ordered By: Nando Wiggins on 07-30-2024 Immature granulocytes/100 WBC (Bld) 0.800 % 0.0-0.9 [facility] MCV (mean corpuscular volume ) determinationOrdered By: Nando Wiggins on 07-30-2024 MCV (RBC) [Entitic vol] 92.3 fL 80-94 [facility] Mean corpuscular hemoglobin (MCH) determinationOrdered By: biancacollege parkwolf Wiggins on 07-30-2024 MCH (RBC) [Entitic mass] 28.2 pg 27.0-32.0 [facility] Monocyte percentageOrdered B y: Nando Wiggins on 07-30-2024 Monocytes/100 WBC (Bld) 9.2 % 0-10 [facility] Neutrophil percentageOrdered By: biancacollege parkwolf Wiggins on 07-30-2024 Neutrophils/100 WBC (Bld) 67.4 % 47-70 [facility] Platelet countOrdered By: Kathie Wiggins on 07-30-2024 Platelets (Bld) [#/Vol] 334 10*3/uL 150-450 [facility] Potassium measurement (mass/ volume)Ordered By: Nando Wiggins on 07-30-2024 Potassium (Unsp spec) [Mass/Vol] 3.6 mmol/L 3.3-5.1 [facility] RBC Auto (Bld) [#/Vol]Ordere d By: Nando Wiggins on 07-30-2024 RBC (Bld) [#/Vol] 2.87 10*6/uL Low 4.6-6.2 [facility] Serum creatinine measurement (mass/volume)Ordered By: Nando Wiggins on 07-30-2024 Creatinine [Mass/Vol] 4.20 mg/dL High 0.70-1.20 [facility] [place] Serum glucose measurement (m ass/volume)Ordered By: Nando Wiggins on 07-30-2024 Glucose [Mass/Vol] 173 mg/dL High 70-99 [facility] Serum or plasma calcium lilli urement (mass/volume)Ordered By: Nando Wiggins on 07-30-2024 Calcium [Mass/Vol] 8.5 mg/dL 7.6-11.0 [facility] Serum or plasma urea nitroge n measurement (mass/volume)Ordered By: Nando Wiggins on 07-30-2024 Urea nitrogen [Mass/Vol] 35 mg/dL High 4-19 [facility] Sodium levelOrdered By: Deb rosejeremie Rosalie on 07-30-2024 Sodium [Moles/Vol] 133 mmol/L 133-145 [facility] White blood cell (WBC) count Ordered By: Nando Wiggins on 07-30-2024 WBC (Bld) [#/Vol] 9.1 10*3/uL 4.4-11.0 [facility] Acid Fast Bacillus Cultureon 07-25-2024 tAFBC Normal [facility] Comment on above: Performed By: #### M 100.3000, M600.2200, M300.2000, M100.4001, M300.3000, M100.2000, M600.2000 ####[facility] [address] [place], [address] Acid Fast Bacillus Smear/Flu oron 07-25-2024 tafb Normal [facility] Comment on above: Performed By: #### M 100.3000, M600.2200, M300.2000, M100.4001, M300.3000, M100.2000, M600.2000 ####[facility] [address] [place], [address] Culture, Fungus 8482on 07-25 CUF Normal [facility] Comment on above: Performed By: #### M 100.3000, M600.2200, M300.2000, M100.4001, M300.3000, M100.2000, M600.2000 ####[facility] [address] [place], [address] Fungus Stain 8136on 07-26-19 25 FUNST Normal [facility] Comment on above: Performed By: #### M 100.3000, M600.2200, M300.2000, M100.4001, M300.3000, M100.2000, M600.2000 ####[facility] [address] [place], [address] Absolute lymphocyte countOrd ered By: Nando Wiggins on 07-23-2024 Lymphocytes Auto (Unsp spec) [#/Vol] 2.13 10*3/uL 0.83-4.51 [facility] Automated lymphocyte count a s percentage of total leukocytesOrdered By: Nando Wiggins on 07-23-2024 Lymphocytes/100 WBC Auto (Unsp spec) 17.3 % Low 19-41 [facility] BUN/creatinine ratioOrdered By: Nando Wiggins on 07-23-2024 Urea nitrogen/Creatinine [Mass ratio] 14.6 mg/mg 10-20 [facility] Basic Metabolic Profile (BMP )on 07-23-2024 BUN Normal 7-18 [facility] Comment on above: Result Comment: Canc elled via OM: Order cancelled - Patient discharged Performed By: #### L 100.0100, L500.2500 ####[facility] [address] [place], [address] BUN/CRE Normal 10-20 [facility] Comment on above: Result Comment: Canc elled via OM: Order cancelled - Patient discharged Performed By: #### L 100.0100, L500.2500 ####[facility] [address] [place], [address] Calcium Normal 8.5-10.1 [facility] Comment on above: Result Comment: Canc elled via OM: Order cancelled - Patient discharged Performed By: #### L 100.0100, L500.2500 ####[facility] [address] [place], [address] CL Normal 98-107 [facility] Comment on above: Result Comment: Canc elled via OM: Order cancelled - Patient discharged Performed By: #### L 100.0100, L500.2500 ####[facility] [address] [place], [address] CO2 Normal 21.0-32.0 [facility] Comment on above: Result Comment: Canc elled via OM: Order cancelled - Patient discharged Performed By: #### L 100.0100, L500.2500 ####[facility] [address] [place], [address] CREAT,SERUM Normal 0.70-1.30 [facility] Comment on above: Result Comment: Canc elled via OM: Order cancelled - Patient discharged Performed By: #### L 100.0100, L500.2500 ####[facility] [address] [place], [address] eGFR Normal >60 [facility] Comment on above: Result Comment: Canc elled via OM: Order cancelled - Patient discharged Performed By: #### L 100.0100, L500.2500 ####[facility] [address] [place], [address] EST GFR - AA Normal >60 [facility] Comment on above: Result Comment: Canc elled via OM: Order cancelled - Patient discharged Performed By: #### L 100.0100, L500.2500 ####[facility] [address] [place], [address] GAP Normal 5-15 [facility] Comment on above: Result Comment: Canc elled via OM: Order cancelled - Patient discharged Performed By: #### L 100.0100, L500.2500 ####[facility] [address] [place], [address] GLU Normal 74-106 [facility] Comment on above: Result Comment: Canc elled via OM: Order cancelled - Patient discharged Performed By: #### L 100.0100, L500.2500 ####[facility] [address] [place], [address] Potassium Normal 3.5-5.1 [facility] Comment on above: Result Comment: Canc elled via OM: Order cancelled - Patient discharged Performed By: #### L 100.0100, L500.2500 ####[facility] [address] [place], [address] Basic Metabolic Profile (BMP) Normal 136-145 [facility] Comment on above: Result Comment: Canc elled via OM: Order cancelled - Patient discharged Performed By: #### L 100.0100, L500.2500 ####[facility] [address] [place], [address] Basophil percentageOrdered B y: Nando Wiggins on 07-23-2024 Basophils/100 WBC (Bld) 0.7 % 0-1 [facility] CBC W/Diff, Automatedon Absolute Neut Normal 2.0-7.7 [facility] Comment on above: Result Comment: Canc elled via OM: Order cancelled - Patient discharged Performed By: #### L 100.0100, L500.2500 ####[facility] [address] [place], [address] HCT Normal 40-54 [facility] Comment on above: Result Comment: Canc elled via OM: Order cancelled - Patient discharged Performed By: #### L 100.0100, L500.2500 ####[facility] [address] [place], [address] HGB Normal 13.0-16.5 [facility] Comment on above: Result Comment: Canc elled via OM: Order cancelled - Patient discharged Performed By: #### L 100.0100, L500.2500 ####[facility] [address] [place], [address] MCH Normal 27.0-32.0 [facility] Comment on above: Result Comment: Canc elled via OM: Order cancelled - Patient discharged Performed By: #### L 100.0100, L500.2500 ####[facility] [address] [place], [address] MCHC Normal 32-36 [facility] Comment on above: Result Comment: Canc elled via OM: Order cancelled - Patient discharged Performed By: #### L 100.0100, L500.2500 ####[facility] [address] [place], [address] MCV Normal 80-94 [facility] Comment on above: Result Comment: Canc elled via OM: Order cancelled - Patient discharged Performed By: #### L 100.0100, L500.2500 ####[facility] [address] [place], [address] NEUT% Normal 47-70 [facility] Comment on above: Result Comment: Canc elled via OM: Order cancelled - Patient discharged Performed By: #### L 100.0100, L500.2500 ####[facility] [address] [place], [address] PLT Normal 150-450 [facility] Comment on above: Result Comment: Canc elled via OM: Order cancelled - Patient discharged Performed By: #### L 100.0100, L500.2500 ####[facility] [address] [place], [address] RBC Normal 4.6-6.2 [facility] Comment on above: Result Comment: Canc elled via OM: Order cancelled - Patient discharged Performed By: #### L 100.0100, L500.2500 ####[facility] [address] [place], [address] RDW CV Normal 11.6-14.6 [facility] Comment on above: Result Comment: Canc elled via OM: Order cancelled - Patient discharged Performed By: #### L 100.0100, L500.2500 ####[facility] [address] [place], [address] RDW SD Normal 35.1-43.9 [facility] Comment on above: Result Comment: Canc elled via OM: Order cancelled - Patient discharged Performed By: #### L 100.0100, L500.2500 ####[facility] [address] [place], [address] WBC Normal 4.4-11.0 [facility] Comment on above: Result Comment: Canc elled via OM: Order cancelled - Patient discharged Performed By: #### L 100.0100, L500.2500 ####[facility] [address] [place], [address] Carbon dioxide measurementOr dered By: Nando Wiggins on 07-23-2024 CO2 [Moles/Vol] 27.0 mmol/L 22.0-29.0 [facility] Chloride measurementOrdered By: Nando Wiggins on 07-23-2024 Chloride [Moles/Vol] 95 mmol/L Low 96-108 [facility] Comprehensive Metabolic Prof ilon 07-23-2024 ALB Normal 3.4-4.8 [facility] Comment on above: Result Comment: NOT DRAWN PATIENT DIDN'T COME TO LAB Performed By: #### L 500.4050 ####[facility] [address] [place], [address] ALK PHOS Normal 40-129 [facility] Comment on above: Result Comment: NOT DRAWN PATIENT DIDN'T COME TO LAB Performed By: #### L 500.4050 ####[facility] [address] [place], [address] ALT Normal <=46 [facility] Comment on above: Result Comment: NOT DRAWN PATIENT DIDN'T COME TO LAB Performed By: #### L 500.4050 ####[facility] [address] [place], [address] Anion Gap Normal 5-15 [facility] Comment on above: Result Comment: NOT DRAWN PATIENT DIDN'T COME TO LAB Performed By: #### L 500.4050 ####[facility] [address] [place], [address] AST Normal <=37 [facility] Comment on above: Result Comment: NOT DRAWN PATIENT DIDN'T COME TO LAB Performed By: #### L 500.4050 ####[facility] [address] [place], [address] Chloride Normal 96-108 [facility] Comment on above: Result Comment: NOT DRAWN PATIENT DIDN'T COME TO LAB Performed By: #### L 500.4050 ####[facility] [address] [place], [address] Sodium Normal 133-145 [facility] Comment on above: Result Comment: NOT DRAWN PATIENT DIDN'T COME TO LAB Performed By: #### L 500.4050 ####[facility] [address] [place], [address] T BILI Normal 0.00-1.30 [facility] Comment on above: Result Comment: NOT DRAWN PATIENT DIDN'T COME TO LAB Performed By: #### L 500.4050 ####[facility] [address] [place], [address] T PROT Normal 5.9-8.4 [facility] Comment on above: Result Comment: NOT DRAWN PATIENT DIDN'T COME TO LAB Performed By: #### L 500.4050 ####[facility] [address] [place], [address] Culture, Anaerobic Any Sourc reed 07-23-2024 CUAN Normal [facility] Comment on above: Performed By: #### M 100.2910, M100.4001, M100.2000 ####[facility] [address] [place], [address] Eosinophil percentageOrdered By: Nando Wiggins on 07-23-2024 Eosinophils/100 WBC (Bld) 1.3 % 0-5 [facility] Erythrocyte distribution wid th ratioOrdered By: Nando Wiggins on 07-23-2024 Erythrocyte distribution width (RBC) [Ratio] 17.1 % High 11.6-14.6 [facility] Erythrocyte distribution wid th standard deviationOrdered By: Nando Wiggins on 07-23-2024 Erythrocyte distribution width (RBC) [Ratio] 58.3 fl High 35.1-43.9 [facility] Glomerular filtration rate ( GFR) estimation/1.73 sq m using serum, plasma, or whole bOrdered By: Nando Wiggins on 07-23-2024 GFR/1.73 sq M.predicted among non-blacks MDRD (S/P/Bld) [Vol rate/Area] 13 mL/min/{1.73_m2} Low >60 [facility] Hematocrit Auto (Bld) [Volum e fraction]Ordered By: Nando Wiggins on 07-23-2024 Hematocrit (Bld) [Volume fraction] 26.1 % Low 40-54 [facility] Hemoglobin measurementOrdere d By: Nando Wiggins on 07-23-2024 Hemoglobin (Bld) [Mass/Vol] 7.8 g/dL Low 13.0-16.5 [facility] Immature granulocytes/100 WB C Auto (Bld)Ordered By: Nando Wiggins on 07-23-2024 Immature granulocytes/100 WBC (Bld) 2.100 % High 0.0-0.9 [facility] MCV (mean corpuscular volume ) determinationOrdered By: Nando Wiggins on 07-23-2024 MCV (RBC) [Entitic vol] 93.5 fL 80-94 [facility] Mean corpuscular hemoglobin (MCH) determinationOrdered By: Nando Wiggins on 07-23-2024 MCH (RBC) [Entitic mass] 28.0 pg 27.0-32.0 [facility] Monocyte percentageOrdered B y: Nando Wiggins on 07-23-2024 Monocytes/100 WBC (Bld) 7.7 % 0-10 [facility] Neutrophil percentageOrdered By: Nando Wiggins on 07-23-2024 Neutrophils/100 WBC (Bld) 70.9 % High 47-70 [facility] Platelet countOrdered By: Kathie biancalilian Wiggins on 07-23-2024 Platelets (Bld) [#/Vol] 451 10*3/uL High 150-450 [facility] RBC Auto (Bld) [#/Vol]Ordere d By: Nando Wiggins on 07-23-2024 RBC (Bld) [#/Vol] 2.79 10*6/uL Low 4.6-6.2 [facility] Serum creatinine measurement (mass/volume)Ordered By: Nando Wiggins on 07-23-2024 Creatinine [Mass/Vol] 4.11 mg/dL High 0.70-1.20 [facility] Serum glucose measurement (m ass/volume)Ordered By: Nando Wiggins on 07-23-2024 Glucose [Mass/Vol] 147 mg/dL High 70-99 [facility] Serum or plasma anion gap de termination (moles/volume)Ordered By: Nando Wiggins on 07-23-2024 Anion gap [Moles/Vol] 12 mmol/L 5-15 [facility] Serum or plasma calcium lilli urement (mass/volume)Ordered By: Nando Wiggins on 07-23-2024 Calcium [Mass/Vol] 8.4 mg/dL 7.6-11.0 [facility] Serum or plasma potassium me asurementOrdered By: Nando Wiggins on 07-23-2024 Potassium [Moles/Vol] 5.0 mmol/L 3.3-5.1 [facility] Serum or plasma sodium measu rement (moles/volume)Ordered By: Debcollege parkwolf Wiggins on 07-23-2024 Sodium [Moles/Vol] 134 mmol/L 133-145 [facility] Serum or plasma urea nitroge n measurement (mass/volume)Ordered By: Nando Wiggins on 07-23-2024 Urea nitrogen [Mass/Vol] 60 mg/dL High 4-19 [facility] White blood cell (WBC) count Ordered By: Nando Wiggins on 07-23-2024 WBC (Bld) [#/Vol] 12.3 10*3/uL High 4.4-11.0 [facility] Wound Ctr History AND Physic ariella 07-23-2024 Wound Ctr History & Physical Normal [facility] Basic Metabolic Profile (BMP )on 07-22-2024 CL Normal 98-107 [facility] Comment on above: Result Comment: Canc elled via OM: Order cancelled - Patient discharged Performed By: #### L 100.0100, L500.2500 ####[facility] [address] [place], [address] EST GFR - AA Normal >60 [facility] Comment on above: Result Comment: Canc elled via OM: Order cancelled - Patient discharged Performed By: #### L 100.0100, L500.2500 ####[facility] [address] [place], [address] GAP Normal 5-15 [facility] Comment on above: Result Comment: Canc elled via OM: Order cancelled - Patient discharged Performed By: #### L 100.0100, L500.2500 ####[facility] [address] [place], [address] Basic Metabolic Profile (BMP) Normal 136-145 [facility] Comment on above: Result Comment: Canc elled via OM: Order cancelled - Patient discharged Performed By: #### L 100.0100, L500.2500 ####[facility] [address] [place], [address] CBC W/Diff, Automatedon 03-0 -2024 Absolute Neut Normal 2.0-7.7 [facility] Comment on above: Result Comment: Canc elled via OM: Order cancelled - Patient discharged Performed By: #### L 100.0100, L500.2500 ####[facility] [address] [place], [address] HCT Normal 40-54 [facility] Comment on above: Result Comment: Canc elled via OM: Order cancelled - Patient discharged Performed By: #### L 100.0100, L500.2500 ####[facility] [address] [place], [address] HGB Normal 13.0-16.5 [facility] Comment on above: Result Comment: Canc elled via OM: Order cancelled - Patient discharged Performed By: #### L 100.0100, L500.2500 ####[facility] [address] [place], [address] MCH Normal 27.0-32.0 [facility] Comment on above: Result Comment: Canc elled via OM: Order cancelled - Patient discharged Performed By: #### L 100.0100, L500.2500 ####[facility] [address] [place], [address] MCHC Normal 32-36 [facility] Comment on above: Result Comment: Canc elled via OM: Order cancelled - Patient discharged Performed By: #### L 100.0100, L500.2500 ####[facility] [address] [place], [address] MCV Normal 80-94 [facility] Comment on above: Result Comment: Canc elled via OM: Order cancelled - Patient discharged Performed By: #### L 100.0100, L500.2500 ####[facility] [address] [place], [address] NEUT% Normal 47-70 [facility] Comment on above: Result Comment: Canc elled via OM: Order cancelled - Patient discharged Performed By: #### L 100.0100, L500.2500 ####[facility] [address] [place], [address] PLT Normal 150-450 [facility] Comment on above: Result Comment: Canc elled via OM: Order cancelled - Patient discharged Performed By: #### L 100.0100, L500.2500 ####[facility] [address] [place], [address] RBC Normal 4.6-6.2 [facility] Comment on above: Result Comment: Canc elled via OM: Order cancelled - Patient discharged Performed By: #### L 100.0100, L500.2500 ####[facility] [address] [place], [address] RDW CV Normal 11.6-14.6 [facility] Comment on above: Result Comment: Canc elled via OM: Order cancelled - Patient discharged Performed By: #### L 100.0100, L500.2500 ####[facility] [address] [place], [address] RDW SD Normal 35.1-43.9 [facility] Comment on above: Result Comment: Canc elled via OM: Order cancelled - Patient discharged Performed By: #### L 100.0100, L500.2500 ####[facility] [address] [place], [address] WBC Normal 4.4-11.0 [facility] Comment on above: Result Comment: Canc elled via OM: Order cancelled - Patient discharged Performed By: #### L 100.0100, L500.2500 ####[facility] [address] [place], [address] Comprehensive Metabolic Prof ilon 07-22-2024 BUN Normal 7-18 [facility] Comment on above: Result Comment: NOT DRAWN PATIENT DIDN'T COME TO LAB Performed By: #### L 500.4050 ####[facility] [address] [place], [address] Result Comment: Canc elled via OM: Order cancelled - Patient discharged Performed By: #### L 100.0100, L500.2500 ####[facility] [address] [place], [address] BUN/CRE Normal 10-20 [facility] Comment on above: Result Comment: NOT DRAWN PATIENT DIDN'T COME TO LAB Performed By: #### L 500.4050 ####[facility] [address] [place], [address] Result Comment: Canc elled via OM: Order cancelled - Patient discharged Performed By: #### L 100.0100, L500.2500 ####[facility] [address] [place], [address] Calcium Normal 8.5-10.1 [facility] Comment on above: Result Comment: NOT DRAWN PATIENT DIDN'T COME TO LAB Performed By: #### L 500.4050 ####[facility] [address] [place], [address] Result Comment: Canc elled via OM: Order cancelled - Patient discharged Performed By: #### L 100.0100, L500.2500 ####[facility] [address] [place], [address] CO2 Normal 21.0-32.0 [facility] Comment on above: Result Comment: NOT DRAWN PATIENT DIDN'T COME TO LAB Performed By: #### L 500.4050 ####[facility] [address] [place], [address] Result Comment: Canc elled via OM: Order cancelled - Patient discharged Performed By: #### L 100.0100, L500.2500 ####[facility] [address] [place], [address] CREAT,SERUM Normal 0.70-1.30 [facility] Comment on above: Result Comment: NOT DRAWN PATIENT DIDN'T COME TO LAB Performed By: #### L 500.4050 ####[facility] [address] [place], [address] Result Comment: Canc elled via OM: Order cancelled - Patient discharged Performed By: #### L 100.0100, L500.2500 ####[facility] [address] [place], [address] eGFR Normal >60 [facility] Comment on above: Result Comment: NOT DRAWN PATIENT DIDN'T COME TO LAB Performed By: #### L 500.4050 ####[facility] [address] [place], [address] Result Comment: Canc elled via OM: Order cancelled - Patient discharged Performed By: #### L 100.0100, L500.2500 ####[facility] [address] [place], [address] GLU Normal 74-106 [facility] Comment on above: Result Comment: NOT DRAWN PATIENT DIDN'T COME TO LAB Performed By: #### L 500.4050 ####[facility] [address] [place], [address] Result Comment: Canc elled via OM: Order cancelled - Patient discharged Performed By: #### L 100.0100, L500.2500 ####[facility] [address] [place], [address] Potassium Normal 3.5-5.1 [facility] Comment on above: Result Comment: NOT DRAWN PATIENT DIDN'T COME TO LAB Performed By: #### L 500.4050 ####[facility] [address] [place], [address] Result Comment: Canc elled via OM: Order cancelled - Patient discharged Performed By: #### L 100.0100, L500.2500 ####[facility] [address] [place], [address] Culture, Blood (WB)on 2024 CUB No growth in 5 days. Normal [facility] Comment on above: Performed By: #### M 200.1000 ####[facility] [address] [place], [address] Basic Metabolic Profile (BMP )on 07-21-2024 BUN Normal 7-18 [facility] Comment on above: Result Comment: Canc elled via OM: Order cancelled - Patient discharged Performed By: #### L 100.0100, L500.2500 ####[facility] [address] [place], [address] BUN/CRE Normal 10-20 [facility] Comment on above: Result Comment: Canc elled via OM: Order cancelled - Patient discharged Performed By: #### L 100.0100, L500.2500 ####[facility] [address] [place], [address] Calcium Normal 8.5-10.1 [facility] Comment on above: Result Comment: Canc elled via OM: Order cancelled - Patient discharged Performed By: #### L 100.0100, L500.2500 ####[facility] [address] [place], [address] CL Normal 98-107 [facility] Comment on above: Result Comment: Canc elled via OM: Order cancelled - Patient discharged Performed By: #### L 100.0100, L500.2500 ####[facility] [address] [place], [address] CO2 Normal 21.0-32.0 [facility] Comment on above: Result Comment: Canc elled via OM: Order cancelled - Patient discharged Performed By: #### L 100.0100, L500.2500 ####[facility] [address] [place], [address] CREAT,SERUM Normal 0.70-1.30 [facility] Comment on above: Result Comment: Canc elled via OM: Order cancelled - Patient discharged Performed By: #### L 100.0100, L500.2500 ####[facility] [address] [place], [address] eGFR Normal >60 [facility] Comment on above: Result Comment: Canc elled via OM: Order cancelled - Patient discharged Performed By: #### L 100.0100, L500.2500 ####[facility] [address] [place], [address] EST GFR - AA Normal >60 [facility] Comment on above: Result Comment: Canc elled via OM: Order cancelled - Patient discharged Performed By: #### L 100.0100, L500.2500 ####[facility] [address] [place], [address] GAP Normal 5-15 [facility] Comment on above: Result Comment: Canc elled via OM: Order cancelled - Patient discharged Performed By: #### L 100.0100, L500.2500 ####[facility] [address] [place], [address] GLU Normal 74-106 [facility] Comment on above: Result Comment: Canc elled via OM: Order cancelled - Patient discharged Performed By: #### L 100.0100, L500.2500 ####[facility] [address] [place], [address] Potassium Normal 3.5-5.1 [facility] Comment on above: Result Comment: Canc elled via OM: Order cancelled - Patient discharged Performed By: #### L 100.0100, L500.2500 ####[facility] [address] [place], [address] Basic Metabolic Profile (BMP) Normal 136-145 [facility] Comment on above: Result Comment: Canc elled via OM: Order cancelled - Patient discharged Performed By: #### L 100.0100, L500.2500 ####[facility] [address] [place], [address] CBC W/Diff, Automatedon 03-0 Absolute Neut Normal 2.0-7.7 [facility] Comment on above: Result Comment: Canc elled via OM: Order cancelled - Patient discharged Performed By: #### L 100.0100, L500.2500 ####[facility] [address] [place], [address] HCT Normal 40-54 [facility] Comment on above: Result Comment: Canc elled via OM: Order cancelled - Patient discharged Performed By: #### L 100.0100, L500.2500 ####[facility] [address] [place], [address] HGB Normal 13.0-16.5 [facility] Comment on above: Result Comment: Canc elled via OM: Order cancelled - Patient discharged Performed By: #### L 100.0100, L500.2500 ####[facility] [address] [place], [address] MCH Normal 27.0-32.0 [facility] Comment on above: Result Comment: Canc elled via OM: Order cancelled - Patient discharged Performed By: #### L 100.0100, L500.2500 ####[facility] [address] [place], [address] MCHC Normal 32-36 [facility] Comment on above: Result Comment: Canc elled via OM: Order cancelled - Patient discharged Performed By: #### L 100.0100, L500.2500 ####[facility] [address] [place], [address] MCV Normal 80-94 [facility] Comment on above: Result Comment: Canc elled via OM: Order cancelled - Patient discharged Performed By: #### L 100.0100, L500.2500 ####[facility] [address] [place], [address] NEUT% Normal 47-70 [facility] Comment on above: Result Comment: Canc elled via OM: Order cancelled - Patient discharged Performed By: #### L 100.0100, L500.2500 ####[facility] [address] [place], [address] PLT Normal 150-450 [facility] Comment on above: Result Comment: Canc elled via OM: Order cancelled - Patient discharged Performed By: #### L 100.0100, L500.2500 ####[facility] [address] [place], [address] RBC Normal 4.6-6.2 [facility] Comment on above: Result Comment: Canc elled via OM: Order cancelled - Patient discharged Performed By: #### L 100.0100, L500.2500 ####[facility] [address] [place], [address] RDW CV Normal 11.6-14.6 [facility] Comment on above: Result Comment: Canc elled via OM: Order cancelled - Patient discharged Performed By: #### L 100.0100, L500.2500 ####[facility] [address] [place], [address] RDW SD Normal 35.1-43.9 [facility] Comment on above: Result Comment: Canc elled via OM: Order cancelled - Patient discharged Performed By: #### L 100.0100, L500.2500 ####[facility] [address] [place], [address] WBC Normal 4.4-11.0 [facility] Comment on above: Result Comment: Canc elled via OM: Order cancelled - Patient discharged Performed By: #### L 100.0100, L500.2500 ####[facility] [address] [place], [address] Culture, Anaerobic Any Sourc reed 07-21-2024 CUAN UNK UNK Post-lavage Right lower extremity No anaerobic bacteria isolated. Normal [facility] Comment on above: Performed By: #### M 100.2000, M100.3000, M100.4001 ####[facility] [address] [place], [address] CUAN UNK UNK Pre-lavage right lower extremity - collected in [place] No anaerobic bacteria isolated. Normal [facility] Comment on above: Performed By: #### M 100.4001, M100.3000, M100.2000 ####[facility] [address] [place], [address] Culture, Blood (WB)on 2024 CUB No growth in 5 days. Normal [facility] Comment on above: Performed By: #### M 200.1000 ####[facility] [address] [place], [address] Absolute lymphocyte countOrd ered By: Jayla Osuna on 07-20-2024 Lymphocytes Auto (Unsp spec) [#/Vol] 1.89 10*3/uL 0.83-4.51 [facility] Automated lymphocyte count a s percentage of total leukocytesOrdered By: Jayla Osuna on 07-20-2024 Lymphocytes/100 WBC Auto (Unsp spec) 14.9 % Low 19-41 [facility] BUN/creatinine ratioOrdered By: Margarette Godinez on 07-20-2024 Urea nitrogen/Creatinine [Mass ratio] 16.1 mg/mg 10-20 [facility] Basic Metabolic Profile (BMP )on 07-20-2024 Anion gap [Moles/Vol] 12 mmol/L Normal 5-15 [facility] Comment on above: Performed By: #### L 500.2500 ####[facility] [address] [place], [address] BUN/CRE 16.1 RATIO Normal 10-20 [facility] Comment on above: Performed By: #### L 500.2500 ####[facility] [address] [place], [address] Calcium [Mass/Vol] 8.7 mg/dL Normal 7.6-11.0 [facility] Comment on above: Performed By: #### L 500.2500 ####[facility] [address] [place], [address] Chloride [Moles/Vol] 97 mmol/L Normal 96-108 [facility] Comment on above: Performed By: #### L 500.2500 ####[facility] [address] [place], [address] CO2 [Moles/Vol] 22.0 mmol/L Normal 22.0-29.0 [facility] Comment on above: Performed By: #### L 500.2500 ####[facility] [address] [place], [address] Creatinine [Mass/Vol] 4.24 mg/dL High 0.70-1.20 [facility] Comment on above: Performed By: #### L 500.2500 ####[facility] [address] [place], [address] ECRCL 13.28 ml/min Normal [facility] Comment on above: Performed By: #### L 500.2500 ####[facility] [address] [place], [address] GFR/1.73 sq M.predicted among non-blacks MDRD (S/P/Bld) [Vol rate/Area] 13 mL/min/{1.73_m2} Low >60 [facility] Comment on above: Result Comment: mL/m in/1.73m2 CKD-EPI Creatinine Equation (2020) Performed By: #### L 500.2500 ####[facility] [address] [place], [address] Glucose [Mass/Vol] 153 mg/dL High 70-99 [facility] Comment on above: Performed By: #### L 500.2500 ####[facility] [address] [place], [address] Potassium [Moles/Vol] 5.5 mmol/L High 3.3-5.1 [facility] [place] Comment on above: Performed By: #### L 500.2500 ####[facility] [address] [place], [address] Sodium [Moles/Vol] 131 mmol/L Low 133-145 [facility] Comment on above: Performed By: #### L 500.2500 ####[facility] [address] [place], [address] Urea nitrogen [Mass/Vol] 68 mg/dL High 4-19 [facility] Comment on above: Performed By: #### L 500.2500 ####[facility] [address] [place], [address] BUN/CRE 16.1 RATIO Normal 10-20 [facility] Comment on above: Result Comment: WILL REORDER Performed By: #### L 500.2500, L100.0100 ####[facility] [address] [place], [address] Creatinine [Mass/Vol] 4.15 mg/dL High 0.70-1.20 [facility] [place] Comment on above: Result Comment: WILL REORDER Performed By: #### L 500.2500, L100.0100 ####[facility] [address] [place], [address] ECRCL 13.57 ml/min Normal [facility] Comment on above: Result Comment: WILL REORDER Performed By: #### L 500.2500, L100.0100 ####[facility] [address] [place], [address] GFR/1.73 sq M.predicted among non-blacks MDRD (S/P/Bld) [Vol rate/Area] 13 mL/min/{1.73_m2} Low >60 [facility] Comment on above: Result Comment: WILL REORDERmL/min/1.73m2 CKD-EPI Creatinine Equation (2020) Performed By: #### L 500.2500, L100.0100 ####[facility] [address] [place], [address] Glucose [Mass/Vol] 155 mg/dL High 70-99 [facility] Comment on above: Result Comment: WILL REORDER Performed By: #### L 500.2500, L100.0100 ####[facility] [address] [place], [address] Urea nitrogen [Mass/Vol] 67 mg/dL High 4-19 [facility] Comment on above: Result Comment: WILL REORDER Performed By: #### L 500.2500, L100.0100 ####[facility] [address] [place], [address] Calcium Normal 8.5-10.1 [facility] Comment on above: Result Comment: WILL REORDER Performed By: #### L 500.2500, L100.0100 ####[facility] [address] [place], [address] CL Normal 98-107 [facility] Comment on above: Result Comment: WILL REORDER Performed By: #### L 500.2500, L100.0100 ####[facility] [address] [place], [address] CO2 Normal 21.0-32.0 [facility] Comment on above: Result Comment: WILL REORDER Performed By: #### L 500.2500, L100.0100 ####[facility] [address] [place], [address] EST GFR - AA Normal >60 [facility] Comment on above: Result Comment: WILL REORDER Performed By: #### L 500.2500, L100.0100 ####[facility] [address] [place], [address] GAP Normal 5-15 [facility] Comment on above: Result Comment: WILL REORDER Performed By: #### L 500.2500, L100.0100 ####[facility] [address] [place], [address] Potassium Normal 3.5-5.1 [facility] Comment on above: Result Comment: WILL REORDER Performed By: #### L 500.2500, L100.0100 ####[facility] [address] [place], [address] Basic Metabolic Profile (BMP) Normal 136-145 [facility] Comment on above: Result Comment: WILL REORDER Performed By: #### L 500.2500, L100.0100 ####[facility] [address] [place], [address] Basophil percentageOrdered B y: Jaylawesley Osuna on 07-20-2024 Basophils/100 WBC (Bld) 0.4 % 0-1 [facility] Bedside Glucoseon 07-20-2024 FINGERSTICK GLU 91 mg/dL Normal 74-106 [facility] Comment on above: Result Comment: FANG GEMENT OF PATIENT CARE PER NURSING PROTOCOL Performed By: #### L 501.080 ####[facility] [address] [place], [address] FINGERSTICK GLU 98 mg/dL Normal 74-106 [facility] Comment on above: Result Comment: FANG GEMENT OF PATIENT CARE PER NURSING PROTOCOL Performed By: #### L 501.080 ####[facility] [address] [place], [address] FINGERSTICK GLU 159 mg/dL High 74-106 [facility] Comment on above: Result Comment: FANG GEMENT OF PATIENT CARE PER NURSING PROTOCOL Performed By: #### L 501.080 ####[facility] [address] [place], [address] FINGERSTICK GLU 156 mg/dL High 74-106 [facility] Comment on above: Result Comment: FANG GEMENT OF PATIENT CARE PER NURSING PROTOCOL Performed By: #### L 501.080 ####[facility] [address] [place], [address] CBC W/Diff, Automatedon 02-2 Absolute Lymph 1.89 X10 3/uL Normal 0.83-4.51 [facility] Comment on above: Performed By: #### L 500.2500, L100.0100 ####[facility] [address] [place], [address] Absolute Neut 9.3 X10 3/uL High 2.0-7.7 [facility] Comment on above: Performed By: #### L 500.2500, L100.0100 ####[facility] [address] [place], [address] Basophils/100 WBC (Bld) 0.4 % Normal 0-1 [facility] Comment on above: Performed By: #### L 500.2500, L100.0100 ####[facility] [address] [place], [address] Eosinophils/100 WBC (Bld) 1.7 % Normal 0-5 [facility] Comment on above: Performed By: #### L 500.2500, L100.0100 ####[facility] [address] [place], [address] Erythrocyte distribution width (RBC) [Ratio] 17.6 % High 11.6-14.6 [facility] Comment on above: Performed By: #### L 500.2500, L100.0100 ####[facility] [address] [place], [address] Hematocrit (Bld) [Volume fraction] 25.2 % Low 40-54 [facility] Comment on above: Performed By: #### L 500.2500, L100.0100 ####[facility] [address] [place], [address] Hemoglobin (Bld) [Mass/Vol] 7.6 g/dL Low 13.0-16.5 [facility] Comment on above: Performed By: #### L 500.2500, L100.0100 ####[facility] [address] [place], [address] IG% 2.300 High 0.0-0.9 [facility] Comment on above: Result Comment: IG% - Immature Granulocytes (promyelocytes, myelocytes andmetamyelocytes) > 1% indicates that a LEFT SHIFT is Present. Performed By: #### L 500.2500, L100.0100 ####[facility] [address] [place], [address] Lymphocytes/100 WBC (Bld) 14.9 % Low 19-41 [facility] Comment on above: Performed By: #### L 500.2500, L100.0100 ####[facility] [address] [place], [address] MCH (RBC) [Entitic mass] 28.1 pg Normal 27.0-32.0 [facility] Comment on above: Performed By: #### L 500.2500, L100.0100 ####[facility] [address] [place], [address] MCHC (RBC) [Mass/Vol] 30.2 g/dL Low 32-36 [facility] [place] Comment on above: Performed By: #### L 500.2500, L100.0100 ####[facility] [address] [place], [address] MCV (RBC) [Entitic vol] 93.3 fL Normal 80-94 [facility] Comment on above: Performed By: #### L 500.2500, L100.0100 ####[facility] [address] [place], [address] Monocytes/100 WBC (Bld) 7.6 % Normal 0-10 [facility] Comment on above: Performed By: #### L 500.2500, L100.0100 ####[facility] [address] [place], [address] Neutrophils/100 WBC (Bld) 73.1 % High 47-70 [facility] Comment on above: Performed By: #### L 500.2500, L100.0100 ####[facility] [address] [place], [address] Nucleated RBC (Bld) [#/Vol] 0 10*3/uL Normal 0-5 [facility] Comment on above: Performed By: #### L 500.2500, L100.0100 ####[facility] [address] [place], [address] Platelet mean volume (Bld) [Entitic vol] 10.4 fL Normal 6.2-12.0 [facility] Comment on above: Performed By: #### L 500.2500, L100.0100 ####[facility] [address] [place], [address] Platelets (Bld) [#/Vol] 438 10*3/uL Normal 150-450 [facility] Comment on above: Performed By: #### L 500.2500, L100.0100 ####[facility] [address] [place], [address] RBC (Bld) [#/Vol] 2.70 10*6/uL Low 4.6-6.2 [facility] Comment on above: Performed By: #### L 500.2500, L100.0100 ####[facility] [address] [place], [address] RDW SD 60.7 fl High 35.1-43.9 [facility] Comment on above: Performed By: #### L 500.2500, L100.0100 ####[facility] [address] [place], [address] WBC (Bld) [#/Vol] 12.7 10*3/uL High 4.4-11.0 [facility] Comment on above: Performed By: #### L 500.2500, L100.0100 ####[facility] [address] [place], [address] Carbon dioxide measurementOr dered By: Margarette Godinez on 07-20-2024 CO2 [Moles/Vol] 22.0 mmol/L 22.0-29.0 [facility] Chloride measurementOrdered By: Margarette Godinez on 07-20-2024 Chloride [Moles/Vol] 97 mmol/L 96-108 [facility] Eosinophil percentageOrdered By: Jayla Osuna on 07-20-2024 Eosinophils/100 WBC (Bld) 1.7 % 0-5 [facility] Erythrocyte distribution wid th ratioOrdered By: Jayla Osuna on 07-20-2024 Erythrocyte distribution width (RBC) [Ratio] 17.6 % High 11.6-14.6 [facility] Erythrocyte distribution wid th standard deviationOrdered By: Jayla Osuna on 07-20-2024 Erythrocyte distribution width (RBC) [Ratio] 60.7 fl High 35.1-43.9 [facility] Glomerular filtration rate ( GFR) estimation/1.73 sq m using serum, plasma, or whole bOrdered By: Margarette Godinez on 07-20-2024 GFR/1.73 sq M.predicted among non-blacks MDRD (S/P/Bld) [Vol rate/Area] 13 mL/min/{1.73_m2} Low >60 [facility] Glucose measurement at [facility] deOrdered By: Margarette Godinez on 07-20-2024 Glucose [Mass/Vol] 91 mg/dL 74-106 [facility] Hematocrit Auto (Bld) [Volum e fraction]Ordered By: Jayla Osuna on 07-20-2024 Hematocrit (Bld) [Volume fraction] 25.2 % Low 40-54 [facility] Hemoglobin measurementOrdere d By: Jayla Osuna on 07-20-2024 Hemoglobin (Bld) [Mass/Vol] 7.6 g/dL Low 13.0-16.5 [facility] Immature granulocytes/100 WB C Auto (Bld)Ordered By: Jayla Osuna on 07-20-2024 Immature granulocytes/100 WBC (Bld) 2.300 % High 0.0-0.9 [facility] MCV (mean corpuscular volume ) determinationOrdered By: Jayla Osuna on 07-20-2024 MCV (RBC) [Entitic vol] 93.3 fL 80-94 [facility] Mean corpuscular hemoglobin (MCH) determinationOrdered By: Jayla Osuna on 07-20-2024 MCH (RBC) [Entitic mass] 28.1 pg 27.0-32.0 [facility] Monocyte percentageOrdered B y: Jayla Osuna on 07-20-2024 Monocytes/100 WBC (Bld) 7.6 % 0-10 [facility] Neutrophil percentageOrdered By: Jayla Osuna on 07-20-2024 Neutrophils/100 WBC (Bld) 73.1 % High 47-70 [facility] Platelet countOrdered By: Kristofer Osuna on 07-20-2024 Platelets (Bld) [#/Vol] 438 10*3/uL 150-450 [facility] RBC Auto (Bld) [#/Vol]Ordere d By: Jayla Osuna on 07-20-2024 RBC (Bld) [#/Vol] 2.70 10*6/uL Low 4.6-6.2 [facility] Serum creatinine measurement (mass/volume)Ordered By: Margarette Godinez on 07-20-2024 Creatinine [Mass/Vol] 4.24 mg/dL High 0.70-1.20 [facility] [place] Serum glucose measurement (m ass/volume)Ordered By: Margarette Godinez on 07-20-2024 Glucose [Mass/Vol] 153 mg/dL High 70-99 [facility] Serum or plasma anion gap de termination (moles/volume)Ordered By: Margarette Godinez on 07-20-2024 Anion gap [Moles/Vol] 12 mmol/L 5- [facility] [place] Serum or plasma calcium lilli urement (mass/volume)Ordered By: Margarette Godinez on 07-20-2024 Calcium [Mass/Vol] 8.7 mg/dL 7.6-11.0 [facility] Serum or plasma potassium me asurementOrdered By: Margarette Godinez on 07-20-2024 Potassium [Moles/Vol] 5.5 mmol/L High 3.3-5.1 [facility] [place] Serum or plasma sodium measu rement (moles/volume)Ordered By: Margarette Godinez on 07-20-2024 Sodium [Moles/Vol] 131 mmol/L Low 133-145 [facility] Serum or plasma urea nitroge n measurement (mass/volume)Ordered By: Margarette Godinez on 07-20-2024 Urea nitrogen [Mass/Vol] 68 mg/dL High 4-19 [facility] White blood cell (WBC) count Ordered By: Jayla Osuna on 07-20-2024 WBC (Bld) [#/Vol] 12.7 10*3/uL High 4.4-11.0 [facility] Basic Metabolic Profile (BMP )on 07-19-2024 Anion gap [Moles/Vol] 17 mmol/L High 5-15 [facility] [place] Comment on above: Performed By: #### L 500.2500 ####[facility] [address] [place], [address] BUN/CRE 14.3 RATIO Normal 10-20 [facility] Comment on above: Performed By: #### L 500.2500 ####[facility] [address] [place], [address] Calcium [Mass/Vol] 8.7 mg/dL Normal 7.6-11.0 [facility] Comment on above: Performed By: #### L 500.2500 ####[facility] [address] [place], [address] Chloride [Moles/Vol] 95 mmol/L Low 96-108 [facility] Comment on above: Performed By: #### L 500.2500 ####[facility] [address] [place], [address] CO2 [Moles/Vol] 19.8 mmol/L Low 22.0-29.0 [facility] Comment on above: Performed By: #### L 500.2500 ####[facility] [address] [place], [address] Creatinine [Mass/Vol] 5.60 mg/dL High 0.70-1.20 [facility] [place] Comment on above: Performed By: #### L 500.2500 ####[facility] [address] [place], [address] ECRCL 10.06 ml/min Normal [facility] Comment on above: Performed By: #### L 500.2500 ####[facility] [address] [place], [address] GFR/1.73 sq M.predicted among non-blacks MDRD (S/P/Bld) [Vol rate/Area] 9 mL/min/{1.73_m2} Low >60 [facility] Comment on above: Result Comment: mL/m in/1.73m2 CKD-EPI Creatinine Equation (2020) Performed By: #### L 500.2500 ####[facility] [address] [place], [address] Glucose [Mass/Vol] 153 mg/dL High 70-99 [facility] Comment on above: Performed By: #### L 500.2500 ####[facility] [address] [place], [address] Potassium [Moles/Vol] 5.9 mmol/L High 3.3-5.1 [facility] [place] Comment on above: Performed By: #### L 500.2500 ####[facility] [address] [place], [address] Sodium [Moles/Vol] 131 mmol/L Low 133-145 [facility] Comment on above: Performed By: #### L 500.2500 ####[facility] [address] [place], [address] Urea nitrogen [Mass/Vol] 80 mg/dL High 4-19 [facility] Comment on above: Performed By: #### L 500.2500 ####[facility] [address] [place], [address] Anion gap [Moles/Vol] 13 mmol/L Normal 5-15 [facility] [place] Comment on above: Performed By: #### L 500.2500 ####[facility] [address] [place], [address] ECRCL 12.41 ml/min Normal [facility] Comment on above: Performed By: #### L 500.2500 ####[facility] [address] [place], [address] GFR/1.73 sq M.predicted among non-blacks MDRD (S/P/Bld) [Vol rate/Area] 12 mL/min/{1.73_m2} Low >60 [facility] Comment on above: Performed By: #### L 500.2500 ####[facility] [address] [place], [address] BUN/CRE 13.7 RATIO Normal 10-20 [facility] Comment on above: Performed By: #### L 500.2500 ####[facility] [address] [place], [address] Calcium [Mass/Vol] 8.9 mg/dL Normal 7.6-11.0 [facility] Comment on above: Performed By: #### L 500.2500 ####[facility] [address] [place], [address] Creatinine [Mass/Vol] 4.6 mg/dL High 0.8-1.3 [facility] [place] Comment on above: Performed By: #### L 500.2500 ####[facility] [address] [place], [address] Glucose [Mass/Vol] 130 mg/dL High 70-99 [facility] Comment on above: Performed By: #### L 500.2500 ####[facility] [address] [place], [address] Urea nitrogen [Mass/Vol] 63 mg/dL High 4-19 [facility] Comment on above: Performed By: #### L 500.2500 ####[facility] [address] [place], [address] Chloride [Moles/Vol] 97 mmol/L Normal 96-108 [facility] Comment on above: Performed By: #### L 500.2500 ####[facility] [address] [place], [address] CO2 [Moles/Vol] 22.7 mmol/L Normal 22.0-29.0 [facility] Comment on above: Performed By: #### L 500.2500 ####[facility] [address] [place], [address] Potassium [Moles/Vol] 5.0 mmol/L Normal 3.3-5.1 [facility] [place] Comment on above: Performed By: #### L 500.2500 ####[facility] [address] [place], [address] Sodium [Moles/Vol] 133 mmol/L Normal 133-145 [facility] Comment on above: Performed By: #### L 500.2500 ####[facility] [address] [place], [address] Glucose [Mass/Vol] 165 mg/dL High 70-99 [facility] Comment on above: Order Comment: REORD ERED Result Comment: MARIS RAYA AMENDED REPORT 07/19/24 1223 GLU previously reported as: 173 H mg/dL Performed By: #### L 100.0100, L500.2500 ####[facility] [address] [place], [address] Urea nitrogen [Mass/Vol] 84 mg/dL High 4-19 [facility] Comment on above: Order Comment: REORD ERED Result Comment: MARIS RAYA AMENDED REPORT 07/19/24 1223 BUN previously reported as: 83 H mg/dL Performed By: #### L 100.0100, L500.2500 ####[facility] [address] [place], [address] BUN/CRE 13.7 RATIO Normal 10-20 [facility] Comment on above: Order Comment: WILL REORDER Result Comment: WILL REORDER AMENDED REPORT 07/19/24 1106 BUN/CRE previously reported as: 13.5 RATIO Performed By: #### L 100.0100, L500.2500 ####[facility] [address] [place], [address] Creatinine [Mass/Vol] 4.6 mg/dL High 0.8-1.3 [facility] [place] Comment on above: Order Comment: WILL REORDER Result Comment: WILL REORDER AMENDED REPORT 07/19/24 1106 CREAT,SERUM previously reported as: 4.5 H mg/dL Performed By: #### L 100.0100, L500.2500 ####[facility] [address] [place], [address] ECRCL 12.41 ml/min Normal [facility] Comment on above: Order Comment: WILL REORDER Result Comment: WILL REORDER AMENDED REPORT 07/19/24 1106 Estimated CRCL previously reported as: 12.65 ml/min Performed By: #### L 100.0100, L500.2500 ####[facility] [address] [place], [address] Glucose [Mass/Vol] 130 mg/dL High 70-99 [facility] Comment on above: Order Comment: WILL REORDER Result Comment: WILL REORDER AMENDED REPORT 07/19/246 GLU previously reported as: 157 H mg/dL Performed By: #### L 100.0100, L500.2500 ####[facility] [address] [place], [address] Urea nitrogen [Mass/Vol] 63 mg/dL High 4-19 [facility] Comment on above: Order Comment: WILL REORDER Result Comment: WILL REORDER AMENDED REPORT 07/19/24 1106 BUN previously reported as: 60 H mg/dL Performed By: #### L 100.0100, L500.2500 ####[facility] [address] [place], [address] BUN/CRE 15.2 RATIO Normal 10-20 [facility] Comment on above: Order Comment: REORD ERED Result Comment: REOR DERED Performed By: #### L 100.0100, L500.2500 ####[facility] [address] [place], [address] Creatinine [Mass/Vol] 5.5 mg/dL High 0.8-1.3 [facility] [place] Comment on above: Order Comment: REORD ERED Result Comment: REOR DERED Performed By: #### L 100.0100, L500.2500 ####[facility] [address] [place], [address] ECRCL 10.38 ml/min Normal [facility] Comment on above: Order Comment: REORD ERED Result Comment: REOR DERED Performed By: #### L 100.0100, L500.2500 ####[facility] [address] [place], [address] GFR/1.73 sq M.predicted among non-blacks MDRD (S/P/Bld) [Vol rate/Area] 9 mL/min/{1.73_m2} Low >60 [facility] Comment on above: Order Comment: REORD ERED Result Comment: REOR DEREDmL/min/1.73m2 CKD-EPI Creatinine Equation (2020) Performed By: #### L 100.0100, L500.2500 ####[facility] [address] [place], [address] Calcium Normal 8.5-10.1 [facility] Comment on above: Order Comment: REORD ERED Result Comment: REOR DERED Performed By: #### L 100.0100, L500.2500 ####[facility] [address] [place], [address] CL Normal 98-107 [facility] Comment on above: Order Comment: REORD ERED Result Comment: REOR DERED Performed By: #### L 100.0100, L500.2500 ####[facility] [address] [place], [address] CO2 Normal 21.0-32.0 [facility] Comment on above: Order Comment: REORD ERED Result Comment: REOR DERED Performed By: #### L 100.0100, L500.2500 ####[facility] [address] [place], [address] EST GFR - AA Normal >60 [facility] Comment on above: Order Comment: REORD ERED Result Comment: REOR DERED Performed By: #### L 100.0100, L500.2500 ####[facility] [address] [place], [address] GAP Normal 5-15 [facility] Comment on above: Order Comment: REORD ERED Result Comment: REOR DERED Performed By: #### L 100.0100, L500.2500 ####[facility] [address] [place], [address] Potassium Normal 3.5-5.1 [facility] Comment on above: Order Comment: REORD ERED Result Comment: REOR DERED Performed By: #### L 100.0100, L500.2500 ####[facility] [address] [place], [address] Basic Metabolic Profile (BMP) Normal 136-145 [facility] Comment on above: Order Comment: REORD ERED Result Comment: REOR DERED Performed By: #### L 100.0100, L500.2500 ####[facility] [address] [place], [address] Bedside Glucoseon 07-19-2024 FINGERSTICK GLU 135 mg/dL High 74-106 [facility] Comment on above: Result Comment: FANG GEMENT OF PATIENT CARE PER NURSING PROTOCOL Performed By: #### L 501.080 ####[facility] [address] [place], [address] FINGERSTICK GLU 227 mg/dL High 74-106 [facility] Comment on above: Result Comment: FANG GEMENT OF PATIENT CARE PER NURSING PROTOCOL Performed By: #### L 501.080 ####[facility] [address] [place], [address] FINGERSTICK GLU 120 mg/dL High 74-106 [facility] Comment on above: Result Comment: FANG VAZQUEZ OF PATIENT CARE PER NURSING PROTOCOL Performed By: #### L 501.080 ####[facility] [address] [place], [address] CBC W/Diff, Automatedon 02-2 Absolute Lymph 2.07 X10 3/uL Normal 0.83-4.51 [facility] Comment on above: Performed By: #### L 100.0100, L500.2500 ####[facility] [address] [place], [address] Absolute Neut 13.1 X10 3/uL High 2.0-7.7 [facility] Comment on above: Performed By: #### L 100.0100, L500.2500 ####[facility] [address] [place], [address] Basophils/100 WBC (Bld) 0.5 % Normal 0-1 [facility] Comment on above: Performed By: #### L 100.0100, L500.2500 ####[facility] [address] [place], [address] Eosinophils/100 WBC (Bld) 1.6 % Normal 0-5 [facility] Comment on above: Performed By: #### L 100.0100, L500.2500 ####[facility] [address] [place], [address] Erythrocyte distribution width (RBC) [Ratio] 17.7 % High 11.6-14.6 [facility] Comment on above: Performed By: #### L 100.0100, L500.2500 ####[facility] [address] [place], [address] Hematocrit (Bld) [Volume fraction] 25.5 % Low 40-54 [facility] Comment on above: Performed By: #### L 100.0100, L500.2500 ####[facility] [address] [place], [address] Hemoglobin (Bld) [Mass/Vol] 7.7 g/dL Low 13.0-16.5 [facility] Comment on above: Performed By: #### L 100.0100, L500.2500 ####[facility] [address] [place], [address] IG% 2.300 High 0.0-0.9 [facility] Comment on above: Result Comment: IG% - Immature Granulocytes (promyelocytes, myelocytes andmetamyelocytes) > 1% indicates that a LEFT SHIFT is Present. Performed By: #### L 100.0100, L500.2500 ####[facility] [address] [place], [address] Lymphocytes/100 WBC (Bld) 12.1 % Low 19-41 [facility] Comment on above: Performed By: #### L 100.0100, L500.2500 ####[facility] [address] [place], [address] MCH (RBC) [Entitic mass] 28.1 pg Normal 27.0-32.0 [facility] Comment on above: Performed By: #### L 100.0100, L500.2500 ####[facility] [address] [place], [address] MCHC (RBC) [Mass/Vol] 30.2 g/dL Low 32-36 [facility] Comment on above: Performed By: #### L 100.0100, L500.2500 ####[facility] [address] [place], [address] MCV (RBC) [Entitic vol] 93.1 fL Normal 80-94 [facility] Comment on above: Performed By: #### L 100.0100, L500.2500 ####[facility] [address] [place], [address] Monocytes/100 WBC (Bld) 7.1 % Normal 0-10 [facility] Comment on above: Performed By: #### L 100.0100, L500.2500 ####[facility] [address] [place], [address] Neutrophils/100 WBC (Bld) 76.4 % High 47-70 [facility] Comment on above: Performed By: #### L 100.0100, L500.2500 ####[facility] [address] [place], [address] Nucleated RBC (Bld) [#/Vol] 0 10*3/uL Normal 0-5 [facility] Comment on above: Performed By: #### L 100.0100, L500.2500 ####[facility] [address] [place], [address] Platelet mean volume (Bld) [Entitic vol] 10.6 fL Normal 6.2-12.0 [facility] Comment on above: Performed By: #### L 100.0100, L500.2500 ####[facility] [address] [place], [address] Platelets (Bld) [#/Vol] 467 10*3/uL High 150-450 [facility] Comment on above: Performed By: #### L 100.0100, L500.2500 ####[facility] [address] [place], [address] RBC (Bld) [#/Vol] 2.74 10*6/uL Low 4.6-6.2 [facility] Comment on above: Performed By: #### L 100.0100, L500.2500 ####[facility] [address] [place], [address] RDW SD 59.6 fl High 35.1-43.9 [facility] Comment on above: Performed By: #### L 100.0100, L500.2500 ####[facility] [address] [place], [address] WBC (Bld) [#/Vol] 17.2 10*3/uL High 4.4-11.0 [facility] Comment on above: Performed By: #### L 100.0100, L500.2500 ####[facility] [address] [place], [address] Serum or plasma vancomycin m easurement (mass/volume)Ordered By: Jayla Osuna on 07-19-2024 Vancomycin [Mass/Vol] 16.7 ug/mL High 0.0-15.0 [facility] Vancomycin, Random Levelon 0 07-19-2024 VANCO, RANDOM 16.7 ug/mL High 0.0-15.0 [facility] Comment on above: Result Comment: VANC OMYCIN STANDARD DRUG THERAPY: CRITICAL VALUE IS > 15.0 mg/LVANCOMYCIN HIGH INTENSITY THERAPY: CRITICAL VALUE IS > 20.0 mg/LPLEASE CONTACT PHARMACY SERVICES (#0527) FOR INTERPRETATIONOF RESULTS. THIS RESULT DOES NOT REPRESENT A PEAK OR TROUGHLEVEL FOR THIS DRUG. Performed By: #### L 501.8850 ####[facility] [address] [place], [address] Basic Metabolic Profile (BMP )on 07-18-2024 GFR/1.73 sq M.predicted among non-blacks MDRD (S/P/Bld) [Vol rate/Area] 12 mL/min/{1.73_m2} Low >60 [facility] Comment on above: Order Comment: WILL REORDER Result Comment: WILL REORDERmL/min/1.73m2 CKD-EPI Creatinine Equation (2020) Performed By: #### L 100.0100, L500.2500 ####[facility] [address] [place], [address] Calcium Normal 8.5-10.1 [facility] Comment on above: Order Comment: WILL REORDER Result Comment: WILL REORDER Performed By: #### L 100.0100, L500.2500 ####[facility] [address] [place], [address] CL Normal 98-107 [facility] Comment on above: Order Comment: WILL REORDER Result Comment: WILL REORDER Performed By: #### L 100.0100, L500.2500 ####[facility] [address] [place], [address] CO2 Normal 21.0-32.0 [facility] Comment on above: Order Comment: WILL REORDER Result Comment: WILL REORDER Performed By: #### L 100.0100, L500.2500 ####[facility] [address] [place], [address] EST GFR - AA Normal >60 [facility] Comment on above: Order Comment: WILL REORDER Result Comment: WILL REORDER Performed By: #### L 100.0100, L500.2500 ####[facility] [address] [place], [address] GAP Normal 5-15 [facility] Comment on above: Order Comment: WILL REORDER Result Comment: WILL REORDER Performed By: #### L 100.0100, L500.2500 ####[facility] [address] [place], [address] Potassium Normal 3.5-5.1 [facility] Comment on above: Order Comment: WILL REORDER Result Comment: WILL REORDER Performed By: #### L 100.0100, L500.2500 ####[facility] [address] [place], [address] Basic Metabolic Profile (BMP) Normal 136-145 [facility] Comment on above: Order Comment: WILL REORDER Result Comment: WILL REORDER Performed By: #### L 100.0100, L500.2500 ####[facility] [address] [place], [address] Bedside Glucoseon 07-18-2024 FINGERSTICK GLU 110 mg/dL High 74-106 [facility] Comment on above: Result Comment: FANG GEMENT OF PATIENT CARE PER NURSING PROTOCOL Performed By: #### L 501.080 ####[facility] [address] [place], [address] FINGERSTICK GLU 156 mg/dL High [facility]106 [facility] Comment on above: Result Comment: FANG GEMENT OF PATIENT CARE PER NURSING PROTOCOL Performed By: #### L 501.080 ####[facility] [address] [place], [address] FINGERSTICK GLU 139 mg/dL High -106 [facility] Comment on above: Result Comment: FANG GEMENT OF PATIENT CARE PER NURSING PROTOCOL Performed By: #### L 501.080 ####[facility] [address] [place], [address] FINGERSTICK GLU 155 mg/dL High 74-106 [facility] Comment on above: Result Comment: FANG GEMENT OF PATIENT CARE PER NURSING PROTOCOL Performed By: #### L 501.080 ####[facility] [address] [place], [address] FINGERSTICK GLU 229 mg/dL High [address] [place] [address] Comment on above: Result Comment: FANG GEMENT OF PATIENT CARE PER NURSING PROTOCOL Performed By: #### L 501.080 ####[facility] [address] [place], [address] Body Tissue Cultureon 2024 [facility] Normal [facility] Comment on above: Performed By: #### M 100.2910, M100.4001, M100.2000 ####[facility] [address] [place], [address] CBC W/Diff, Automatedon 02-2 PATH REV Reviewed Normal [facility] Comment on above: Result Comment: Neut rophilic leukocytosis with left shift.Normocytic anemia.Clinical correlation necessary.Jose Souza M.D. 07/18/24 AMENDED REPORT 07/18/24 1335 PATH REV previously reported as: September nitesh Performed By: #### L 100.0100, L500.2500 ####[facility] [address] [place], [address] Culture, Anaerobic Any Sourc reed 07-18-2024 CUAN Normal [facility] Comment on above: Performed By: #### M 100.4001, M100.2000, M100.3000 ####[facility] [address] [place], [address] Review by pathologistOrdered By: Jayla Osuna on 07-18-2024 Pathologist review Jeff (Unsp spec) [Interp] Reviewed [facility] Wound Cultureon 07-18-2024 WC Normal [facility] Comment on above: Performed By: #### M 100.4001, M100.3000, M100.2000 ####[facility] [address] [place], [address] WC Normal [facility] Comment on above: Performed By: #### M 100.2000, M100.3000, M100.4001 ####[facility] [address] [place], [address] Ankle Brachial Indexon 07-17 Ankle Brachial Index Normal [facility] Basic Metabolic Profile (BMP )on 07-17-2024 BUN/CRE 13.3 RATIO Normal 10-20 [facility] Comment on above: Performed By: #### L 500.2500, L100.0100 ####[facility] [address] [place], [address] CA,Total 8.3 mg/dL Low 8.5-10.1 [facility] Comment on above: Performed By: #### L 500.2500, L100.0100 ####[facility] [address] [place], [address] Chloride [Moles/Vol] 97 mmol/L Low 98-107 [facility] Comment on above: Performed By: #### L 500.2500, L100.0100 ####[facility] [address] [place], [address] CO2 [Moles/Vol] 25.0 mmol/L Normal 21.0-32.0 [facility] Comment on above: Performed By: #### L 500.2500, L100.0100 ####[facility] [address] [place], [address] Creatinine [Mass/Vol] 6.15 mg/dL High 0.70-1.30 [facility] Comment on above: Result Comment: The validity of the calculated GFR GFRAA in patients over70 years has not been determined. Clinical correlation isessential. Performed By: #### L 500.2500, L100.0100 ####[facility] [address] [place], [address] ECRCL 9.33 ml/min Normal [facility] Comment on above: Performed By: #### L 500.2500, L100.0100 ####[facility] [address] [place], [address] EST GFR - AA 11 mL/min Low >60 [facility] Comment on above: Result Comment: Afri can [place] GFR Calc Performed By: #### L 500.2500, L100.0100 ####[facility] [address] [place], [address] GAP 8 Normal 5-15 [facility] Comment on above: Performed By: #### L 500.2500, L100.0100 ####[facility] [address] [place], [address] GFR/1.73 sq M.predicted among non-blacks MDRD (S/P/Bld) [Vol rate/Area] 9 mL/min/{1.73_m2} Low >60 [facility] Comment on above: Result Comment: Non- GFR Calc Performed By: #### L 500.2500, L100.0100 ####[facility] [address] [place], [address] Glucose [Mass/Vol] 213 mg/dL High 74-106 [facility] Comment on above: Result Comment: Gluc ose result greater than or equal to 200 mg/dLsuggests DIABETES MELLITUS per A.D.A. criteria. Performed By: #### L 500.2500, L100.0100 ####[facility] [address] [place], [address] Potassium [Moles/Vol] 5.1 mmol/L Normal 3.5-5.1 [facility] Comment on above: Performed By: #### L 500.2500, L100.0100 ####[facility] [address] [place], [address] Sodium [Moles/Vol] 130 mmol/L Low 136-145 [facility] Comment on above: Performed By: #### L 500.2500, L100.0100 ####[facility] [address] [place], [address] Urea nitrogen [Mass/Vol] 82 mg/dL High 7-18 [facility] Comment on above: Performed By: #### L 500.2500, L100.0100 ####[facility] [address] [place], [address] Bedside Glucoseon 07-17-2024 FINGERSTICK GLU 119 mg/dL High 74-106 [facility] Comment on above: Result Comment: FANG GEMENT OF PATIENT CARE PER NURSING PROTOCOL Performed By: #### L 501.080 ####[facility] [address] [place], [address] FINGERSTICK GLU 226 mg/dL High 74-106 [facility] Comment on above: Result Comment: FANG GEMENT OF PATIENT CARE PER NURSING PROTOCOL Performed By: #### L 501.080 ####[facility] [address] [place], [address] FINGERSTICK GLU 203 mg/dL High 74-106 [facility] Comment on above: Result Comment: FANG GEMENT OF PATIENT CARE PER NURSING PROTOCOL Performed By: #### L 501.080 ####[facility] [address] [place], [address] FINGERSTICK GLU 208 mg/dL High 74-106 [facility] Comment on above: Result Comment: FANG GEMENT OF PATIENT CARE PER NURSING PROTOCOL Performed By: #### L 501.080 ####[facility] [address] [place], [address] Blood cultureOrdered By: Rosales Shore on 07-17-2024 Bacteria identified Cx Nom (Bld) No growth in 5 days. [facility] CBC W/Diff, Automatedon 06-24 Absolute Lymph 2.11 X10 3/uL Normal 0.83-4.51 [facility] Comment on above: Performed By: #### L 500.2500, L100.0100 ####[facility] [address] [place], [address] Absolute Neut 17.0 X10 3/uL High 2.0-7.7 [facility] Comment on above: Performed By: #### L 500.2500, L100.0100 ####[facility] [address] [place], [address] Basophils/100 WBC (Bld) 0.3 % Normal 0-1 [facility] Comment on above: Performed By: #### L 500.2500, L100.0100 ####[facility] [address] [place], [address] Eosinophils/100 WBC (Bld) 0.6 % Normal 0-5 [facility] Comment on above: Performed By: #### L 500.2500, L100.0100 ####[facility] [address] [place], [address] Erythrocyte distribution width (RBC) [Ratio] 17.7 % High 11.6-14.6 [facility] Comment on above: Performed By: #### L 500.2500, L100.0100 ####[facility] [address] [place], [address] Hematocrit (Bld) [Volume fraction] 23.7 % Low 40-54 [facility] Comment on above: Performed By: #### L 500.2500, L100.0100 ####[facility] [address] [place], [address] Hemoglobin (Bld) [Mass/Vol] 7.1 g/dL Low 13.0-16.5 [facility] Comment on above: Performed By: #### L 500.2500, L100.0100 ####[facility] [address] [place], [address] IG% 2.800 High 0.0-0.9 [facility] Comment on above: Result Comment: IG% - Immature Granulocytes (promyelocytes, myelocytes andmetamyelocytes) > 1% indicates that a LEFT SHIFT is Present. Performed By: #### L 500.2500, L100.0100 ####[facility] [address] [place], [address] Lymphocytes/100 WBC (Bld) 9.9 % Low 19-41 [facility] Comment on above: Performed By: #### L 500.2500, L100.0100 ####[facility] [address] [place], [address] MCH (RBC) [Entitic mass] 27.8 pg Normal 27.0-32.0 [facility] Comment on above: Performed By: #### L 500.2500, L100.0100 ####[facility] [address] [place], [address] MCHC (RBC) [Mass/Vol] 30.0 g/dL Low 32-36 [facility] Comment on above: Performed By: #### L 500.2500, L100.0100 ####[facility] [address] [place], [address] MCV (RBC) [Entitic vol] 92.9 fL Normal 80-94 [facility] Comment on above: Performed By: #### L 500.2500, L100.0100 ####[facility] [address] [place], [address] Monocytes/100 WBC (Bld) 6.6 % Normal 0-10 [facility] Comment on above: Performed By: #### L 500.2500, L100.0100 ####[facility] [address] [place], [address] Neutrophils/100 WBC (Bld) 79.8 % High 47-70 [facility] Comment on above: Performed By: #### L 500.2500, L100.0100 ####[facility] [address] [place], [address] Nucleated RBC (Bld) [#/Vol] 0 10*3/uL Normal 0-5 [facility] Comment on above: Performed By: #### L 500.2500, L100.0100 ####[facility] [address] [place], [address] Platelet mean volume (Bld) [Entitic vol] 10.7 fL Normal 6.2-12.0 [facility] Comment on above: Performed By: #### L 500.2500, L100.0100 ####[facility] [address] [place], [address] Platelets (Bld) [#/Vol] 378 10*3/uL Normal 150-450 [facility] Comment on above: Performed By: #### L 500.2500, L100.0100 ####[facility] [address] [place], [address] RBC (Bld) [#/Vol] 2.55 10*6/uL Low 4.6-6.2 [facility] Comment on above: Performed By: #### L 500.2500, L100.0100 ####[facility] [address] [place], [address] RDW SD 60.7 fl High 35.1-43.9 [facility] Comment on above: Performed By: #### L 500.2500, L100.0100 ####[facility] [address] [place], [address] WBC (Bld) [#/Vol] 21.2 10*3/uL High 4.4-11.0 [facility] Comment on above: Performed By: #### L 500.2500, L100.0100 ####[facility] [address] [place], [address] Chloride measurementOrdered By: Jayla Osuna on 07-17-2024 Chloride [Moles/Vol] 97 mmol/L Low 98-107 [facility] Gram Stainon 07-17-2024 GS UNK UNK Post-lavage Right lower extremity Gram Stain 3+ Gram positive cocci Rare White Blood Cells Normal [facility] Comment on above: Performed By: #### M 100.2000, M100.3000, M100.4001 ####[facility] [address] [place], [address] GS UNK UNK Pre-lavage right lower extremity - collected in [place] Gram Stain Rare White Blood Cells 3+ Red Blood Cells Rare Gram positive cocci Normal [facility] Comment on above: Performed By: #### M 100.4001, M100.3000, M1.2000 ####[facility] [address] [place], [place], [address] Reason for Exam: Infection of right lower extremity Bone cortex right lower extremity Gram Stain 4+ Gram positive cocci Rare Gram negative rods No White Blood Cells Normal [facility] Comment on above: Performed By: #### M 100.2910, M100.4001, M100.2000 ####[facility] [address] [place], [place], [address] US Art Duplex Bilat Lower Ex ton 07-17-2024 US Art Duplex Bilat Lower Ext Normal [facility] Vancomycin, Random Levelon 0 07-17-2024 VANCO, RANDOM 13.2 ug/mL Normal 0.0-15.0 [facility] Comment on above: Result Comment: VANC OMYCIN STANDARD DRUG THERAPY: CRITICAL VALUE IS > 15.0 mg/LVANCOMYCIN HIGH INTENSITY THERAPY: CRITICAL VALUE IS > 20.0 mg/LPLEASE CONTACT PHARMACY SERVICES (#2582) FOR INTERPRETATIONOF RESULTS. THIS RESULT DOES NOT REPRESENT A PEAK OR TROUGHLEVEL FOR THIS DRUG. Performed By: #### L 501.8850 ####[facility] [address] [place], [place], [address] 12 Lead EKGon 07-16-2024 12 Lead EKG Normal [facility] Activated partial thrombopla stin time (aPTT) in platelet poor plasma by coagulation aOrdered By: Flavio Young on 07-16-2024 aPTT Coag (PPP) [Time] 39.7 s High 24.1-36.2 [facility] Anaerobic cultureOrdered By: Josef Garcia on 07-16-2024 Bacteria identified Anaer cx Nom (Unsp spec) Clostridium cadaveris Abnormal [facility] Bacteria identified Anaer cx Nom (Unsp spec) No anaerobic bacteria isolated. [facility] Bacterial tissue aerobic cul tureOrdered By: Josef Garcia on 07-16-2024 Bacteria identified Aer cx Nom (Tiss) Meth. resistant Staph. aureus Abnormal [facility] Basic Metabolic Profile (BMP )on 07-16-2024 BUN/CRE 13.8 RATIO Normal 10-20 [facility] Comment on above: Performed By: #### L 100.0100, L500.2500 ####[facility] [address] [place], [address] CA,Total 8.7 mg/dL Normal 8.5-10.1 [facility] Comment on above: Performed By: #### L 100.0100, L500.2500 ####[facility] [address] [place], [address] Chloride [Moles/Vol] 97 mmol/L Low 98-107 [facility] Comment on above: Performed By: #### L 100.0100, L500.2500 ####[facility] [address] [place], [address] CO2 [Moles/Vol] 26.0 mmol/L Normal 21.0-32.0 [facility] Comment on above: Performed By: #### L 100.0100, L500.2500 ####[facility] [address] [place], [address] Creatinine [Mass/Vol] 5.13 mg/dL High 0.70-1.30 [facility] Comment on above: Result Comment: The validity of the calculated GFR GFRAA in patients over70 years has not been determined. Clinical correlation isessential. Performed By: #### L 100.0100, L500.2500 ####[facility] [address] [place], [address] ECRCL 11.13 ml/min Normal [facility] Comment on above: Performed By: #### L 100.0100, L500.2500 ####[facility] [address] [place], [address] EST GFR - AA 14 mL/min Low >60 [facility] Comment on above: Result Comment: Afri can [place] GFR Calc Performed By: #### L 100.0100, L500.2500 ####[facility] [address] [place], [address] GAP 11 Normal 5-15 [facility] Comment on above: Performed By: #### L 100.0100, L500.2500 ####[facility] [address] [place], [address] GFR/1.73 sq M.predicted among non-blacks MDRD (S/P/Bld) [Vol rate/Area] 11 mL/min/{1.73_m2} Low >60 [facility] Comment on above: Result Comment: Non- GFR Calc Performed By: #### L 100.0100, L500.2500 ####[facility] [address] [place], [address] Glucose [Mass/Vol] 127 mg/dL High 74-106 [facility] Comment on above: Result Comment: Fast ing Glucose result greater than or equal to 126 mg/dLsuggests DIABETES MELLITUS per A.D.A. criteria. Performed By: #### L 100.0100, L500.2500 ####[facility] [address] [place], [address] Potassium [Moles/Vol] 4.3 mmol/L Normal 3.5-5.1 [facility] [place] Comment on above: Performed By: #### L 100.0100, L500.2500 ####[facility] [address] [place], [address] Sodium [Moles/Vol] 134 mmol/L Low 136-145 [facility] Comment on above: Performed By: #### L 100.0100, L500.2500 ####[facility] [address] [place], [address] Urea nitrogen [Mass/Vol] 71 mg/dL High 7-18 [facility] Comment on above: Performed By: #### L 100.0100, L500.2500 ####[facility] [address] [place], [address] Bedside Glucoseon 07-16-2024 FINGERSTICK GLU 105 mg/dL Normal 74-106 [facility] Comment on above: Result Comment: FANG GEMENT OF PATIENT CARE PER NURSING PROTOCOL Performed By: #### L 501.080 ####[facility] [address] [place], [address] FINGERSTICK GLU 118 mg/dL High 74-106 [facility] Comment on above: Result Comment: FANG GEMENT OF PATIENT CARE PER NURSING PROTOCOL Performed By: #### L 501.080 ####[facility] [address] [place], [address] FINGERSTICK GLU 122 mg/dL High 74-106 [facility] Comment on above: Result Comment: FANG GEMENT OF PATIENT CARE PER NURSING PROTOCOL Performed By: #### L 501.080 ####[facility] [address] [place], [address] Blood cultureOrdered By: Rosales Shore on 07-16-2024 Bacteria identified Cx Nom (Bld) No growth in 5 days. [facility] CBC W/Diff, Automatedon 06-24 PATH REV Reviewed Normal [facility] Comment on above: Result Comment: Neut rophilic leukocytosis with left shift.Normocytic anemia.Clinical correlation necessary.Jose Souza M.D. 07/16/24 AMENDED REPORT 07/16/24 1406 PATH REV previously reported as: September Performed By: #### L 101.9900, L501.6710, L500.2500, L100.0100 ####[facility] [address] [place], [address] Absolute Lymph 2.43 X10 3/uL Normal 0.83-4.51 [facility] Comment on above: Performed By: #### L 100.0100, L500.2500 ####[facility] [address] [place], [address] Absolute Neut 12.8 X10 3/uL High 2.0-7.7 [facility] Comment on above: Performed By: #### L 100.0100, L500.2500 ####[facility] [address] [place], [address] Basophils/100 WBC (Bld) 0.2 % Normal 0-1 [facility] Comment on above: Performed By: #### L 100.0100, L500.2500 ####[facility] [address] [place], [address] Eosinophils/100 WBC (Bld) 1.6 % Normal 0-5 [facility] Comment on above: Performed By: #### L 100.0100, L500.2500 ####[facility] [address] [place], [address] Erythrocyte distribution width (RBC) [Ratio] 17.7 % High 11.6-14.6 [facility] Comment on above: Performed By: #### L 100.0100, L500.2500 ####[facility] [address] [place], [address] Hematocrit (Bld) [Volume fraction] 25.2 % Low 40-54 [facility] Comment on above: Performed By: #### L 100.0100, L500.2500 ####[facility] [address] [place], [address] Hemoglobin (Bld) [Mass/Vol] 7.5 g/dL Low 13.0-16.5 [facility] Comment on above: Performed By: #### L 100.0100, L500.2500 ####[facility] [address] [place], [address] IG% 3.200 High 0.0-0.9 [facility] Comment on above: Result Comment: IG% - Immature Granulocytes (promyelocytes, myelocytes andmetamyelocytes) > 1% indicates that a LEFT SHIFT is Present. Performed By: #### L 100.0100, L500.2500 ####[facility] [address] [place], [address] Lymphocytes/100 WBC (Bld) 14.0 % Low 19-41 [facility] Comment on above: Performed By: #### L 100.0100, L500.2500 ####[facility] [address] [place], [address] MCH (RBC) [Entitic mass] 28.2 pg Normal 27.0-32.0 [facility] Comment on above: Performed By: #### L 100.0100, L500.2500 ####[facility] [address] [place], [address] MCHC (RBC) [Mass/Vol] 29.8 g/dL Low 32-36 [facility] [place] Comment on above: Performed By: #### L 100.0100, L500.2500 ####[facility] [address] [place], [address] MCV (RBC) [Entitic vol] 94.7 fL High 80-94 [facility] Comment on above: Performed By: #### L 100.0100, L500.2500 ####[facility] [address] [place], [address] Monocytes/100 WBC (Bld) 7.5 % Normal 0-10 [facility] Comment on above: Performed By: #### L 100.0100, L500.2500 ####[facility] [address] [place], [address] Neutrophils/100 WBC (Bld) 73.5 % High 47-70 [facility] Comment on above: Performed By: #### L 100.0100, L500.2500 ####[facility] [address] [place], [address] Nucleated RBC (Bld) [#/Vol] 0 10*3/uL Normal 0-5 [facility] Comment on above: Performed By: #### L 100.0100, L500.2500 ####[facility] [address] [place], [address] Platelet mean volume (Bld) [Entitic vol] 10.6 fL Normal 6.2-12.0 [facility] Comment on above: Performed By: #### L 100.0100, L500.2500 ####[facility] [address] [place], [address] Platelets (Bld) [#/Vol] 378 10*3/uL Normal 150-450 [facility] Comment on above: Performed By: #### L 100.0100, L500.2500 ####[facility] [address] [place], [address] RBC (Bld) [#/Vol] 2.66 10*6/uL Low 4.6-6.2 [facility] Comment on above: Performed By: #### L 100.0100, L500.2500 ####[facility] [address] [place], [address] RDW SD 60.4 fl High 35.1-43.9 [facility] Comment on above: Performed By: #### L 100.0100, L500.2500 ####[facility] [address] [place], [address] WBC (Bld) [#/Vol] 17.4 10*3/uL High 4.4-11.0 [facility] Comment on above: Performed By: #### L 100.0100, L500.2500 ####[facility] [address] [place], [address] Consultation - Infectious Dx on 07-16-2024 Consultation - Infectious Dx Normal [facility] Consultation - Nephrologyon 07-16-2024 Consultation - Nephrology Normal [facility] Culture, Blood (WB)on 2024 CUB Normal [facility] Comment on above: Performed By: #### M 200.1000, M100.636 ####[facility] [address] [place], [place], [id number] Foot 2 Viewson 07-16-2024 Foot 2 Views Normal [facility] Gram stainOrdered By: Kesha Garcia on 07-16-2024 Microscopic observation Gram stain Nom (Unsp spec) [facility] Hemoglobin A1con 07-16-2024 HbA1c (Bld) [Mass fraction] 6.0 % High 3.8-5.6 [facility] Comment on above: Order Comment: Comme nts: Pre-operative Result Comment: Norm al < 5.7 % Prediabetic 5.7 - 6.4 % Diabetic >or= 6.5 % Please note range changes. Performed By: #### L 300.3900, L501.9985, L300.4310 ####[facility] [address] [place], [place], [id number] Hemoglobin A1c percentageOrd ered By: Flavio Young on 07-16-2024 HbA1c (Bld) [Mass fraction] 6.0 % High 3.8-5.6 [facility] MR/POSTOP.ANEon 07-16-2024 MR/POSTOP.ANE Normal [facility] MR/USHPQKUU5ec 07-16-2024 MR/POSTOPAN2 Normal [facility] Operative Reporton Operative Report Normal [facility] Partial Thromboplast Timeon 07-16-2024 aPTT Coag (Bld) [Time] 39.7 s High 24.1-36.2 [facility] Comment on above: Order Comment: Comme nts: Pre-operative Performed By: #### L 300.3900, L501.9985, L300.4310 ####[facility] [address] [place], [place], [id number] Prothrombin Time w/INRon INR Coag (PPP) [Relative time] 1.3 {INR} Normal [facility] Comment on above: Order Comment: Comme nts: Pre-operative Performed By: #### L 300.3900, L501.9985, L300.4310 ####[facility] [address] [place], [address] PT Coag (PPP) [Time] 16.8 s High 11.7-14.9 [facility] Comment on above: Order Comment: Comme nts: Pre-operative Performed By: #### L 300.3900, L501.9985, L300.4310 ####[facility] [address] [place], [address] Prothrombin timeOrdered By: Flavio Young on 07-16-2024 PT Coag (PPP) [Time] 16.8 s High 11.7-14.9 [facility] Routine wound cultureOrdered By: Josef Garcia on 07-16-2024 Microbial culture, routine Meth. resistant Staph. aureus Abnormal [facility] Basic Metabolic Profile (BMP )on 07-15-2024 BUN/CRE 13.9 RATIO Normal 10-20 [facility] Comment on above: Performed By: #### L 500.2500, L100.0100 ####[facility] [address] [place], [address] CA,Total 8.8 mg/dL Normal 8.5-10.1 [facility] Comment on above: Performed By: #### L 500.2500, L100.0100 ####[facility] [address] [place], [address] Chloride [Moles/Vol] 98 mmol/L Normal 98-107 [facility] Comment on above: Performed By: #### L 500.2500, L100.0100 ####[facility] [address] [place], [address] CO2 [Moles/Vol] 27.0 mmol/L Normal 21.0-32.0 [facility] Comment on above: Performed By: #### L 500.2500, L100.0100 ####[facility] [address] [place], [address] Creatinine [Mass/Vol] 3.97 mg/dL High 0.70-1.30 [facility] [place] Comment on above: Result Comment: The validity of the calculated GFR GFRAA in patients over70 years has not been determined. Clinical correlation isessential. Performed By: #### L 500.2500, L100.0100 ####[facility] [address] [place], [address] ECRCL 14.64 ml/min Normal [facility] Comment on above: Performed By: #### L 500.2500, L100.0100 ####[facility] [address] [place], [address] EST GFR - AA 19 mL/min Low >60 [facility] Comment on above: Result Comment: Afri can [place] GFR Calc Performed By: #### L 500.2500, L100.0100 ####[facility] [address] [place], [address] GAP 9 Normal 5-15 [facility] Comment on above: Performed By: #### L 500.2500, L100.0100 ####[facility] [address] [place], [address] GFR/1.73 sq M.predicted among non-blacks MDRD (S/P/Bld) [Vol rate/Area] 15 mL/min/{1.73_m2} Low >60 [facility] Comment on above: Result Comment: Non- GFR Calc Performed By: #### L 500.2500, L100.0100 ####[facility] [address] [place], [address] Glucose [Mass/Vol] 204 mg/dL High 74-106 [facility] Comment on above: Result Comment: Gluc ose result greater than or equal to 200 mg/dLsuggests DIABETES MELLITUS per A.D.A. criteria. Performed By: #### L 500.2500, L100.0100 ####[facility] [address] [place], [address] Potassium [Moles/Vol] 3.5 mmol/L Normal 3.5-5.1 [facility] [place] Comment on above: Performed By: #### L 500.2500, L100.0100 ####[facility] [address] [place], [address] Sodium [Moles/Vol] 133 mmol/L Low 136-145 [facility] Comment on above: Performed By: #### L 500.2500, L100.0100 ####[facility] [address] [place], [address] Urea nitrogen [Mass/Vol] 55 mg/dL High 7-18 [facility] Comment on above: Performed By: #### L 500.2500, L100.0100 ####[facility] [address] [place], [address] Bedside Glucoseon 07-15-2024 FINGERSTICK GLU 138 mg/dL High 74-106 [facility] Comment on above: Result Comment: FANG GEMENT OF PATIENT CARE PER NURSING PROTOCOL Performed By: #### L 501.080 ####[facility] [address] [place], [address] FINGERSTICK GLU 57 mg/dL Low 74-106 [facility] Comment on above: Result Comment: FANG GEMENT OF PATIENT CARE PER NURSING PROTOCOL Performed By: #### L 501.080 ####[facility] [address] [place], [address] FINGERSTICK GLU 141 mg/dL High 74-106 [facility] Comment on above: Result Comment: FANG GEMENT OF PATIENT CARE PER NURSING PROTOCOL Performed By: #### L 501.080 ####[facility] [address] [place], [address] FINGERSTICK GLU 214 mg/dL High 74-106 [facility] Comment on above: Result Comment: FANG VAZQUEZ OF PATIENT CARE PER NURSING PROTOCOL Performed By: #### L 501.080 ####[facility] [address] [place], [address] CBC W/Diff, Automatedon 02-2 Absolute Lymph 2.18 X10 3/uL Normal 0.83-4.51 [facility] Comment on above: Performed By: #### L 500.2500, L100.0100 ####[facility] [address] [place], [address] Absolute Neut 14.1 X10 3/uL High 2.0-7.7 [facility] Comment on above: Performed By: #### L 500.2500, L100.0100 ####[facility] [address] [place], [address] Basophils/100 WBC (Bld) 0.2 % Normal 0-1 [facility] Comment on above: Performed By: #### L 500.2500, L100.0100 ####[facility] [address] [place], [address] Eosinophils/100 WBC (Bld) 1.2 % Normal 0-5 [facility] Comment on above: Performed By: #### L 500.2500, L100.0100 ####[facility] [address] [place], [address] Erythrocyte distribution width (RBC) [Ratio] 17.6 % High 11.6-14.6 [facility] Comment on above: Performed By: #### L 500.2500, L100.0100 ####[facility] [address] [place], [address] Hematocrit (Bld) [Volume fraction] 26.7 % Low 40-54 [facility] Comment on above: Performed By: #### L 500.2500, L100.0100 ####[facility] [address] [place], [address] Hemoglobin (Bld) [Mass/Vol] 7.8 g/dL Low 13.0-16.5 [facility] Comment on above: Performed By: #### L 500.2500, L100.0100 ####[facility] [address] [place], [address] IG% 2.500 High 0.0-0.9 [facility] Comment on above: Result Comment: IG% - Immature Granulocytes (promyelocytes, myelocytes andmetamyelocytes) > 1% indicates that a LEFT SHIFT is Present. Performed By: #### L 500.2500, L100.0100 ####[facility] [address] [place], [address] Lymphocytes/100 WBC (Bld) 11.9 % Low 19-41 [facility] Comment on above: Performed By: #### L 500.2500, L100.0100 ####[facility] [address] [place], [address] MCH (RBC) [Entitic mass] 27.9 pg Normal 27.0-32.0 [facility] Comment on above: Performed By: #### L 500.2500, L100.0100 ####[facility] [address] [place], [address] MCHC (RBC) [Mass/Vol] 29.2 g/dL Low 32-36 [facility] [place] Comment on above: Performed By: #### L 500.2500, L100.0100 ####[facility] [address] [place], [address] MCV (RBC) [Entitic vol] 95.4 fL High 80-94 [facility] Comment on above: Performed By: #### L 500.2500, L100.0100 ####[facility] [address] [place], [address] Monocytes/100 WBC (Bld) 7.1 % Normal 0-10 [facility] Comment on above: Performed By: #### L 500.2500, L100.0100 ####[facility] [address] [place], [address] Neutrophils/100 WBC (Bld) 77.1 % High 47-70 [facility] Comment on above: Performed By: #### L 500.2500, L100.0100 ####[facility] [address] [place], [address] Nucleated RBC (Bld) [#/Vol] 0 10*3/uL Normal 0-5 [facility] Comment on above: Performed By: #### L 500.2500, L100.0100 ####[facility] [address] [place], [address] Platelet mean volume (Bld) [Entitic vol] 10.7 fL Normal 6.2-12.0 [facility] Comment on above: Performed By: #### L 500.2500, L100.0100 ####[facility] [address] [place], [address] Platelets (Bld) [#/Vol] 361 10*3/uL Normal 150-450 [facility] Comment on above: Performed By: #### L 500.2500, L100.0100 ####[facility] [address] [place], [address] RBC (Bld) [#/Vol] 2.80 10*6/uL Low 4.6-6.2 [facility] Comment on above: Performed By: #### L 500.2500, L100.0100 ####[facility] [address] [place], [address] RDW SD 61.1 fl High 35.1-43.9 [facility] Comment on above: Performed By: #### L 500.2500, L100.0100 ####[facility] [address] [place], [address] WBC (Bld) [#/Vol] 18.3 10*3/uL High 4.4-11.0 [facility] Comment on above: Performed By: #### L 500.2500, L100.0100 ####[facility] [address] [place], [address] Foot min 3 Viewson 5 Foot min 3 Views Normal [facility] Wound Cultureon 07-15-2024 WC Normal [facility] Comment on above: Performed By: #### M 100.4001, M100.2000, M100.3000 ####[facility] [address] [place], [address] BC GPC IDon 07-14-2024 BC GPC ID Normal [facility] Comment on above: Performed By: #### M 200.1000, M100.636 ####[facility] [address] [place], [address] Basic Metabolic Profile (BMP )on 07-14-2024 BUN/CRE 11.0 RATIO Normal 10-20 [facility] Comment on above: Performed By: #### L 500.2500, L100.0100 ####[facility] [address] [place], [address] CA,Total 8.6 mg/dL Normal 8.5-10.1 [facility] Comment on above: Performed By: #### L 500.2500, L100.0100 ####[facility] [address] [place], [address] Chloride [Moles/Vol] 94 mmol/L Low 98-107 [facility] Comment on above: Performed By: #### L 500.2500, L100.0100 ####[facility] [address] [place], [address] CO2 [Moles/Vol] 30.0 mmol/L Normal 21.0-32.0 [facility] Comment on above: Performed By: #### L 500.2500, L100.0100 ####[facility] [address] [place], [address] Creatinine [Mass/Vol] 4.84 mg/dL High 0.70-1.30 [facility] Comment on above: Result Comment: The validity of the calculated GFR GFRAA in patients over70 years has not been determined. Clinical correlation isessential. Performed By: #### L 500.2500, L100.0100 ####[facility] [address] [place], [address] ECRCL 11.51 ml/min Normal [facility] Comment on above: Performed By: #### L 500.2500, L100.0100 ####[facility] [address] [place], [address] EST GFR - AA 15 mL/min Low >60 [facility] Comment on above: Result Comment: Afri can [place] GFR Calc Performed By: #### L 500.2500, L100.0100 ####[facility] [address] [place], [address] GAP 8 Normal 5-15 [facility] Comment on above: Performed By: #### L 500.2500, L100.0100 ####[facility] [address] [place], [address] GFR/1.73 sq M.predicted among non-blacks MDRD (S/P/Bld) [Vol rate/Area] 12 mL/min/{1.73_m2} Low >60 [facility] Comment on above: Result Comment: Non- GFR Calc Performed By: #### L 500.2500, L100.0100 ####[facility] [address] [place], [address] Glucose [Mass/Vol] 244 mg/dL High 74-106 [facility] Comment on above: Result Comment: Gluc ose result greater than or equal to 200 mg/dLsuggests DIABETES MELLITUS per A.D.A. criteria. Performed By: #### L 500.2500, L100.0100 ####[facility] [address] [place], [address] Potassium [Moles/Vol] 3.4 mmol/L Low 3.5-5.1 [facility] Comment on above: Performed By: #### L 500.2500, L100.0100 ####[facility] [address] [place], [address] Sodium [Moles/Vol] 132 mmol/L Low 136-145 [facility] Comment on above: Performed By: #### L 500.2500, L100.0100 ####[facility] [address] [place], [address] Urea nitrogen [Mass/Vol] 53 mg/dL High 7-18 [facility] Comment on above: Performed By: #### L 500.2500, L100.0100 ####[facility] [address] [place], [address] Bedside Glucoseon 07-14-2024 FINGERSTICK GLU 196 mg/dL High 74-106 [facility] Comment on above: Result Comment: FANG GEMENT OF PATIENT CARE PER NURSING PROTOCOL Performed By: #### L 501.080 ####[facility] [address] [place], [address] FINGERSTICK GLU 103 mg/dL Normal 74-106 [facility] Comment on above: Result Comment: FANG GEMENT OF PATIENT CARE PER NURSING PROTOCOL Performed By: #### L 501.080 ####[facility] [address] [place], [address] FINGERSTICK GLU 183 mg/dL High 74-106 [facility] Comment on above: Result Comment: FANG GEMENT OF PATIENT CARE PER NURSING PROTOCOL Performed By: #### L 501.080 ####[facility] [address] [place], [address] FINGERSTICK GLU 239 mg/dL High 74-106 [facility] Comment on above: Result Comment: FANG GEMENT OF PATIENT CARE PER NURSING PROTOCOL Performed By: #### L 501.080 ####[facility] [address] [place], [address] CBC W/Diff, Automatedon 06-24 Absolute Lymph 1.49 X10 3/uL Normal 0.83-4.51 [facility] Comment on above: Performed By: #### L 500.2500, L100.0100 ####[facility] [address] [place], [address] Absolute Neut 14.7 X10 3/uL High 2.0-7.7 [facility] Comment on above: Performed By: #### L 500.2500, L100.0100 ####[facility] [address] [place], [address] Basophils/100 WBC (Bld) 0.2 % Normal 0-1 [facility] Comment on above: Performed By: #### L 500.2500, L100.0100 ####[facility] [address] [place], [address] Eosinophils/100 WBC (Bld) 0.9 % Normal 0-5 [facility] Comment on above: Performed By: #### L 500.2500, L100.0100 ####[facility] [address] [place], [address] Erythrocyte distribution width (RBC) [Ratio] 17.6 % High 11.6-14.6 [facility] Comment on above: Performed By: #### L 500.2500, L100.0100 ####[facility] [address] [place], [address] Hematocrit (Bld) [Volume fraction] 25.3 % Low 40-54 [facility] Comment on above: Performed By: #### L 500.2500, L100.0100 ####[facility] [address] [place], [address] Hemoglobin (Bld) [Mass/Vol] 7.8 g/dL Low 13.0-16.5 [facility] Comment on above: Performed By: #### L 500.2500, L100.0100 ####[facility] [address] [place], [address] IG% 3.300 High 0.0-0.9 [facility] Comment on above: Result Comment: IG% - Immature Granulocytes (promyelocytes, myelocytes andmetamyelocytes) > 1% indicates that a LEFT SHIFT is Present. Performed By: #### L 500.2500, L100.0100 ####[facility] [address] [place], [address] Lymphocytes/100 WBC (Bld) 8.2 % Low 19-41 [facility] Comment on above: Performed By: #### L 500.2500, L100.0100 ####[facility] [address] [place], [address] MCH (RBC) [Entitic mass] 28.8 pg Normal 27.0-32.0 [facility] Comment on above: Performed By: #### L 500.2500, L100.0100 ####[facility] [address] [place], [address] MCHC (RBC) [Mass/Vol] 30.8 g/dL Low 32-36 [facility] Comment on above: Performed By: #### L 500.2500, L100.0100 ####[facility] [address] [place], [address] MCV (RBC) [Entitic vol] 93.4 fL Normal 80-94 [facility] Comment on above: Performed By: #### L 500.2500, L100.0100 ####[facility] [address] [place], [address] Monocytes/100 WBC (Bld) 7.2 % Normal 0-10 [facility] Comment on above: Performed By: #### L 500.2500, L100.0100 ####[facility] [address] [place], [address] Neutrophils/100 WBC (Bld) 80.2 % High 47-70 [facility] Comment on above: Performed By: #### L 500.2500, L100.0100 ####[facility] [address] [place], [address] Nucleated RBC (Bld) [#/Vol] 0 10*3/uL Normal 0-5 [facility] Comment on above: Performed By: #### L 500.2500, L100.0100 ####[facility] [address] [place], [address] Platelet mean volume (Bld) [Entitic vol] 10.6 fL Normal 6.2-12.0 [facility] Comment on above: Performed By: #### L 500.2500, L100.0100 ####[facility] [address] [place], [address] Platelets (Bld) [#/Vol] 346 10*3/uL Normal 150-450 [facility] Comment on above: Performed By: #### L 500.2500, L100.0100 ####[facility] [address] [place], [address] RBC (Bld) [#/Vol] 2.71 10*6/uL Low 4.6-6.2 [facility] Comment on above: Performed By: #### L 500.2500, L100.0100 ####[facility] [address] [place], [address] RDW SD 59.7 fl High 35.1-43.9 [facility] Comment on above: Performed By: #### L 500.2500, L100.0100 ####[facility] [address] [place], [address] WBC (Bld) [#/Vol] 18.3 10*3/uL High 4.4-11.0 [facility] Comment on above: Performed By: #### L 500.2500, L100.0100 ####[facility] [address] [place], [address] Echo Completeon 07-14-2024 Echo Complete Normal [facility] Gram Stainon 07-14-2024 GS Gram Stain 1+ Gram positive rods 4+ Gram positive cocci Rare White Blood Cells No Epithelial cells Normal [facility] Comment on above: Performed By: #### M 100.4001, M100.2000, M100.3000 ####[facility] [address] [place], [address] Vancomycin, Random Levelon 0 07-14-2024 VANCO, RANDOM 15.3 ug/mL High 0.0-15.0 [facility] Comment on above: Order Comment: Comme nts: please draw with AM labs Result Comment: VANC OMYCIN STANDARD DRUG THERAPY: CRITICAL VALUE IS > 15.0 mg/LVANCOMYCIN HIGH INTENSITY THERAPY: CRITICAL VALUE IS > 20.0 mg/LPLEASE CONTACT PHARMACY SERVICES (#5041) FOR INTERPRETATIONOF RESULTS. THIS RESULT DOES NOT REPRESENT A PEAK OR TROUGHLEVEL FOR THIS DRUG. Performed By: #### L 501.8836 ####[facility] [address] [place], [address] Anaerobic cultureOrdered By: Chung Humphreys on 02-21-2025 Bacteria identified Anaer cx Nom (Unsp spec) Clostridium perfringens Abnormal [facility] Basic Metabolic Profile (BMP )on 07-13-2024 BUN/CRE 8.5 RATIO Low 10-20 [facility] Comment on above: Performed By: #### L 101.9900, L501.6710, L500.2500, L100.0100 ####[facility] [address] [place], [address] CA,Total 8.9 mg/dL Normal 8.5-10.1 [facility] Comment on above: Performed By: #### L 101.9900, L501.6710, L500.2500, L100.0100 ####[facility] [address] [place], [address] Chloride [Moles/Vol] 93 mmol/L Low 98-107 [facility] Comment on above: Performed By: #### L 101.9900, L501.6710, L500.2500, L100.0100 ####[facility] [address] [place], [address] CO2 [Moles/Vol] 32.0 mmol/L Normal 21.0-32.0 [facility] Comment on above: Performed By: #### L 101.9900, L501.6710, L500.2500, L100.0100 ####[facility] [address] [place], [address] Creatinine [Mass/Vol] 4.35 mg/dL High 0.70-1.30 [facility] Comment on above: Result Comment: The validity of the calculated GFR GFRAA in patients over70 years has not been determined. Clinical correlation isessential. Performed By: #### L 101.9900, L501.6710, L500.2500, L100.0100 ####[facility] [address] [place], [address] ECRCL 13.09 ml/min Normal [facility] Comment on above: Performed By: #### L 101.9900, L501.6710, L500.2500, L100.0100 ####[facility] [address] [place], [address] EST GFR - AA 17 mL/min Low >60 [facility] Comment on above: Result Comment: Afri can [place] GFR Calc Performed By: #### L 101.9900, L501.6710, L500.2500, L100.0100 ####[facility] [address] [place], [address] GAP 8 Normal 5-15 [facility] Comment on above: Performed By: #### L 101.9900, L501.6710, L500.2500, L100.0100 ####[facility] [address] [place], [address] GFR/1.73 sq M.predicted among non-blacks MDRD (S/P/Bld) [Vol rate/Area] 14 mL/min/{1.73_m2} Low >60 [facility] Comment on above: Result Comment: Non- GFR Calc Performed By: #### L 101.9900, L501.6710, L500.2500, L100.0100 ####[facility] [address] [place], [address] Glucose [Mass/Vol] 132 mg/dL High 74-106 [facility] Comment on above: Result Comment: Fast ing Glucose result greater than or equal to 126 mg/dLsuggests DIABETES MELLITUS per A.D.A. criteria. Performed By: #### L 101.9900, L501.6710, L500.2500, L100.0100 ####[facility] [address] [place], [address] Potassium [Moles/Vol] 3.7 mmol/L Normal 3.5-5.1 [facility] Comment on above: Result Comment: Slig ht Hemolysis, Result may be falsely increased. Performed By: #### L 101.9900, L501.6710, L500.2500, L100.0100 ####[facility] [address] [place], [address] Sodium [Moles/Vol] 133 mmol/L Low 136-145 [facility] Comment on above: Performed By: #### L 101.9900, L501.6710, L500.2500, L100.0100 ####[facility] [address] [place], [address] Urea nitrogen [Mass/Vol] 37 mg/dL High 7-18 [facility] Comment on above: Performed By: #### L 101.9900, L501.6710, L500.2500, L100.0100 ####[facility] [address] [place], [address] Bedside Glucoseon 07-13-2024 FINGERSTICK GLU 231 mg/dL High 74-106 [facility] Comment on above: Result Comment: FANG VAZQUEZ OF PATIENT CARE PER NURSING PROTOCOL Performed By: #### L 501.080 ####[facility] [address] [place], [address] Blood cultureOrdered By: Noelle Humphreys on 07-13-2024 Bacteria identified Cx Nom (Bld) Meth. resistant Staph. aureus Abnormal [facility] Blood manual differential co mment interpretation (narrative result)Ordered By: Chung Humphreys on 07-13-2024 Manual differential comment Jeff (Bld) [Interp] SEE COMMENT [facility] C-reactive protein measureme nt by high sensitivity methodOrdered By: Chung Humphreys on 07-13-2024 C-reactive protein measurement by high sensitivity method 301.00 mg/L High 0.0-3.0 [facility] CRPon 07-13-2024 C-REACTIVE PROT 301.00 mg/L High 0.0-3.0 [facility] Comment on above: Result Comment: C-Re active Protein (CRP) provides useful information for thediagnosis, therapy and monitoring of inflammatory processesand associated diseases. For the evaluation of Relative Riskfor Cardiovascular Disease, a High Sensitivity CRP (HSCRP)should be ordered. Performed By: #### L 101.9900, L501.6710, L500.2500, L100.0100 ####[facility] [address] [place], [address] Chest PA and Lateralon 07-13 Chest PA and Lateral Normal [facility] Emergency Department Summary on 07-13-2024 Emergency Department Summary Normal [facility] Erythrocyte Sed Rateon 07-13 SED RATE 53 mm/hr High 0-20 [facility] Comment on above: Performed By: #### L 101.9900, L501.6710, L500.2500, L100.0100 ####[facility] [address] [place], [place], [address] Erythrocyte morphology asses smentOrdered By: Chung Humphreys on 07-13-2024 RBC morphology finding Nom (Bld) N CHROM NORMAL NORM C&C [facility] Erythrocyte sedimentation ra teOrdered By: Chung Humphreys on 07-13-2024 ESR (Bld) [Velocity] 53 mm/h High 0-20 [facility] Foot min 3 Viewson 5 Foot min 3 Views Normal [facility] Gram stainOrdered By: Kevin Humphreys on 07-13-2024 Microscopic observation Gram stain Nom (Unsp spec) [facility] H AND P Exam - Hospitaliston 07-13-2024 H&P Exam - Hospitalist Normal [facility] Hypochromatic red blood cell detectionOrdered By: Chung Humphreys on 07-13-2024 Hypochromia Ql (Bld) RARE [facility] Influenza virus A and B and SARS-CoV-2 (COVID-19) and Respiratory syncytial virus RNAOrdered By: Chung Humphreys on 07-13-2024 SARS-CoV-2 (COVID-19) RNA EZEKIEL+probe Ql (Unsp spec) [facility] M100.678on 07-13-2024 M100.678 SARS-CoV-2 (COVID 19 ) Negative INFLUENZA A Negative INFLUENZA B Negative RSV PCR Negative Normal [facility] Comment on above: Performed By: #### M 100.678 ####[facility] [address] [place], [address] Macrocytes detectionOrdered By: Chung Humphreys on 07-13-2024 Macrocytes Ql (Bld) 1+ [facility] No Panel InformationOrdered By: Chung Humphreys on 07-13-2024 1+ [facility] Organism identificationOrder ed By: Chung Humphreys on 07-13-2024 Microorganism identified Cx Nom (Unsp spec) Meth. resistant Staph. aureus Abnormal [facility] Platelet estimateOrdered By: Chung Humphreys on 07-13-2024 Platelets LM Ql (Bld) ADEQUATE ADEQ [facility] Routine wound cultureOrdered By: Chung Humphreys on 07-13-2024 Microbial culture, routine Meth. resistant Staph. aureus Abnormal [facility] Urinalysis, Completeon 07-13 BACTERIA Normal None Seen [facility] Comment on above: Order Comment: SENT LABEL TO MS3 TO COLLECTCOLLECTOR TO SPECIFY Result Comment: JAYY ENT DISCHARGED Performed By: #### L 400.0001 ####[facility] [address] [place], [address] BILIRUBIN URINE Normal Negative [facility] Comment on above: Order Comment: SENT LABEL TO MS3 TO COLLECTCOLLECTOR TO SPECIFY Result Comment: JAYY ENT DISCHARGED Performed By: #### L 400.0001 ####[facility] [address] [place], [address] Clarity (U) Normal Clear [facility] Comment on above: Order Comment: SENT LABEL TO MS3 TO COLLECTCOLLECTOR TO SPECIFY Result Comment: JAYY ENT DISCHARGED Performed By: #### L 400.0001 ####[facility] [address] [place], [address] Color (U) Normal Yellow [facility] Comment on above: Order Comment: SENT LABEL TO MS3 TO COLLECTCOLLECTOR TO SPECIFY Result Comment: JAYY ENT DISCHARGED Performed By: #### L 400.0001 ####[facility] [address] [place], [address] EPI,SQUAMOUS Normal 0-5 [facility] Comment on above: Order Comment: SENT LABEL TO MS3 TO COLLECTCOLLECTOR TO SPECIFY Result Comment: JAYY ENT DISCHARGED Performed By: #### L 400.0001 ####[facility] [address] [place], [address] GLUCOSE, UR Normal Normal [facility] Comment on above: Order Comment: SENT LABEL TO MS3 TO COLLECTCOLLECTOR TO SPECIFY Result Comment: JAYY ENT DISCHARGED Performed By: #### L 400.0001 ####[facility] [address] [place], [address] KETONE UR Normal Negative [facility] Comment on above: Order Comment: SENT LABEL TO MS3 TO COLLECTCOLLECTOR TO SPECIFY Result Comment: JAYY ENT DISCHARGED Performed By: #### L 400.0001 ####[facility] [address] [place], [address] LEUK ESTERASE Normal Negative [facility] Comment on above: Order Comment: SENT LABEL TO MS3 TO COLLECTCOLLECTOR TO SPECIFY Result Comment: JAYY ENT DISCHARGED Performed By: #### L 400.0001 ####[facility] [address] [place], [address] Mucus Ql (Urine sed) Normal [facility] Comment on above: Order Comment: SENT LABEL TO MS3 TO COLLECTCOLLECTOR TO SPECIFY Result Comment: JAYY ENT DISCHARGED Performed By: #### L 400.0001 ####[facility] [address] [place], [address] Nitrite Ql (U) Normal Negative [facility] Comment on above: Order Comment: SENT LABEL TO MS3 TO COLLECTCOLLECTOR TO SPECIFY Result Comment: JAYY ENT DISCHARGED Performed By: #### L 400.0001 ####[facility] [address] [place], [address] OCCULT BLOOD-UR Normal Negative [facility] Comment on above: Order Comment: SENT LABEL TO MS3 TO COLLECTCOLLECTOR TO SPECIFY Result Comment: JAYY ENT DISCHARGED Performed By: #### L 400.0001 ####[facility] [address] [place], [address] pH UR Normal 5.0 - 8.0 [facility] Comment on above: Order Comment: SENT LABEL TO MS3 TO COLLECTCOLLECTOR TO SPECIFY Result Comment: JAYY ENT DISCHARGED Performed By: #### L 400.0001 ####[facility] [address] [place], [address] PROT DIPSTX Normal Negative [facility] Comment on above: Order Comment: SENT LABEL TO MS3 TO COLLECTCOLLECTOR TO SPECIFY Result Comment: JAYY ENT DISCHARGED Performed By: #### L 400.0001 ####[facility] [address] [place], [address] RBC Normal 0-5 [facility] Comment on above: Order Comment: SENT LABEL TO MS3 TO COLLECTCOLLECTOR TO SPECIFY Result Comment: JYAY ENT DISCHARGED Performed By: #### L 400.0001 ####[facility] [address] [place], [address] SP.GR. DIPSTX Normal 1.002-1.030 [facility] Comment on above: Order Comment: SENT LABEL TO MS3 TO COLLECTCOLLECTOR TO SPECIFY Result Comment: JAYY ENT DISCHARGED Performed By: #### L 400.0001 ####[facility] [address] [place], [address] UR Preservative Normal [facility] Comment on above: Order Comment: SENT LABEL TO MS3 TO COLLECTCOLLECTOR TO SPECIFY Result Comment: JAYY ENT DISCHARGED Performed By: #### L 400.0001 ####[facility] [address] [place], [address] UROBILI Normal Normal [facility] Comment on above: Order Comment: SENT LABEL TO MS3 TO COLLECTCOLLECTOR TO SPECIFY Result Comment: JAYY ENT DISCHARGED Performed By: #### L 400.0001 ####[facility] [address] [place], [place], [id number] WBC Normal 0-5 [facility] Comment on above: Order Comment: SENT LABEL TO MS3 TO COLLECTCOLLECTOR TO SPECIFY Result Comment: JAYY ENT DISCHARGED Performed By: #### L 400.0001 ####[facility] [address] [place], [place], [address] CNPTOUTREACHon 07-11-2024 CNPTOUTREACH Normal [facility] Absolute lymphocyte countOrd ered By: Nando Wiggins on 07-09-2024 Lymphocytes Auto (Unsp spec) [#/Vol] 1.88 10*3/uL 0.83-4.51 [facility] Automated lymphocyte count a s percentage of total leukocytesOrdered By: Nando Wiggins on 07-09-2024 Lymphocytes/100 WBC Auto (Unsp spec) 12.0 % Low 19-41 [facility] Basophil percentageOrdered B y: Nando Wiggins on 07-09-2024 Basophils/100 WBC (Bld) 0.2 % 0-1 [facility] Carbon dioxide measurementOr dered By: Nando Wiggins on 07-09-2024 CO2 [Moles/Vol] 29.0 mmol/L 21.0-32.0 [facility] Chloride measurementOrdered By: Nando Wiggins on 07-09-2024 Chloride [Moles/Vol] 89 mmol/L Low 98-107 [facility] Eosinophil percentageOrdered By: Nando Wiggins on 07-09-2024 Eosinophils/100 WBC (Bld) 0.4 % 0-5 [facility] Erythrocyte distribution wid th ratioOrdered By: Nando Wiggins on 07-09-2024 Erythrocyte distribution width (RBC) [Ratio] 16.9 % High 11.6-14.6 [facility] Erythrocyte distribution wid th standard deviationOrdered By: Nando Wiggins on 07-09-2024 Erythrocyte distribution width (RBC) [Ratio] 57.9 fl High 35.1-43.9 [facility] Glomerular filtration rate ( GFR) estimationOrdered By: Nando Wiggins on 07-09-2024 GFR/1.73 sq M.predicted among non-blacks MDRD (S/P/Bld) [Vol rate/Area] 11 mL/min/{1.73_m2} Low >60 [facility] Glucose measurementOrdered B y: Nando Wiggins on 07-09-2024 Glucose [Mass/Vol] 131 mg/dL High 74-106 [facility] Hematocrit Auto (Bld) [Volum e fraction]Ordered By: Nando Wiggins on 07-09-2024 Hematocrit (Bld) [Volume fraction] 26.0 % Low 40-54 [facility] Hemoglobin measurementOrdere d By: Nando Wiggins on 07-09-2024 Hemoglobin (Bld) [Mass/Vol] 7.7 g/dL Low 13.0-16.5 [facility] Immature granulocytes/100 WB C Auto (Bld)Ordered By: Nando Wiggins on 07-09-2024 Immature granulocytes/100 WBC (Bld) 0.600 % 0.0-0.9 [facility] MCV (mean corpuscular volume ) determinationOrdered By: Nando Wiggins on 07-09-2024 MCV (RBC) [Entitic vol] 94.9 fL High 80-94 [facility] Mean corpuscular hemoglobin (MCH) determinationOrdered By: fili Wiggins on 07-09-2024 MCH (RBC) [Entitic mass] 28.1 pg 27.0-32.0 [facility] Monocyte percentageOrdered B y: Nando Wiggins on 07-09-2024 Monocytes/100 WBC (Bld) 7.0 % 0-10 [facility] Neutrophil percentageOrdered By: fili Wiggins on 07-09-2024 Neutrophils/100 WBC (Bld) 79.8 % High 47-70 [facility] Platelet countOrdered By: Kathie Wiggins on 07-09-2024 Platelets (Bld) [#/Vol] 258 10*3/uL 150-450 [facility] Potassium measurementOrdered By: Nando Wiggins on 07-09-2024 Potassium [Moles/Vol] 3.6 mmol/L 3.5-5.1 [facility] RBC Auto (Bld) [#/Vol]Ordere d By: Nando Wiggins on 07-09-2024 RBC (Bld) [#/Vol] 2.74 10*6/uL Low 4.6-6.2 [facility] Serum or plasma calcium lilli urement (mass/volume)Ordered By: Nando Wiggins on 07-09-2024 Calcium [Mass/Vol] 9.2 mg/dL 8.5-10.1 [facility] Serum or plasma creatinine m easurement (mass/volume)Ordered By: Nando Wiggins on 07-09-2024 Creatinine [Mass/Vol] 5.11 mg/dL High 0.70-1.30 [facility] Serum or plasma urea nitroge n measurement (mass/volume)Ordered By: Nando Wiggins on 07-09-2024 Urea nitrogen [Mass/Vol] 61 mg/dL High 7-18 [facility] Sodium levelOrdered By: Deb lilian Rosalie on 07-09-2024 Sodium [Moles/Vol] 129 mmol/L Low 136-145 [facility] White blood cell (WBC) count Ordered By: Nando Wiggins on 07-09-2024 WBC (Bld) [#/Vol] 15.7 10*3/uL High 4.4-11.0 [facility] 12 Lead EKGon 07-07-2024 12 Lead EKG Normal [facility] Absolute lymphocyte countOrd ered By: Alicia Loo on 07-07-2024 Lymphocytes Auto (Unsp spec) [#/Vol] 1.18 10*3/uL 0.83-4.51 [facility] Automated lymphocyte count a s percentage of total leukocytesOrdered By: Alicia Loo on 07-07-2024 Lymphocytes/100 WBC Auto (Unsp spec) 13.1 % Low 19-41 [facility] Basic Metabolic Profile (BMP )on 07-07-2024 BUN/CRE 11.0 RATIO Normal 10-20 [facility] Comment on above: Order Comment: 'TROP ' Serial specimen #1, #2 or #3: 1 Performed By: #### L 500.2500, L100.0100, L501.4020 ####[facility] [address] [place], [address] CA,Total 8.5 mg/dL Normal 8.5-10.1 [facility] Comment on above: Order Comment: 'TROP ' Serial specimen #1, #2 or #3: 1 Performed By: #### L 500.2500, L100.0100, L501.4020 ####[facility] [address] [place], [address] Chloride [Moles/Vol] 91 mmol/L Low 98-107 [facility] Comment on above: Order Comment: 'TROP ' Serial specimen #1, #2 or #3: 1 Performed By: #### L 500.2500, L100.0100, L501.4020 ####[facility] [address] [place], [address] CO2 [Moles/Vol] 33.0 mmol/L High 21.0-32.0 [facility] Comment on above: Order Comment: 'TROP ' Serial specimen #1, #2 or #3: 1 Performed By: #### L 500.2500, L100.0100, L501.4020 ####[facility] [address] [place], [address] Creatinine [Mass/Vol] 3.01 mg/dL High 0.70-1.30 [facility] Comment on above: Order Comment: 'TROP ' Serial specimen #1, #2 or #3: 1 Result Comment: The validity of the calculated GFR GFRAA in patients over70 years has not been determined. Clinical correlation isessential. Performed By: #### L 500.2500, L100.0100, L501.4020 ####[facility] [address] [place], [address] ECRCL 19.28 ml/min Normal [facility] Comment on above: Order Comment: 'TROP ' Serial specimen #1, #2 or #3: 1 Performed By: #### L 500.2500, L100.0100, L501.4020 ####[facility] [address] [place], [address] EST GFR - AA 26 mL/min Low >60 [facility] Comment on above: Order Comment: 'TROP ' Serial specimen #1, #2 or #3: 1 Result Comment: Afri can [place] GFR Calc Performed By: #### L 500.2500, L100.0100, L501.4020 ####[facility] [address] [place], [address] GAP 8 Normal 5-15 [facility] Comment on above: Order Comment: 'TROP ' Serial specimen #1, #2 or #3: 1 Performed By: #### L 500.2500, L100.0100, L501.4020 ####[facility] [address] [place], [address] GFR/1.73 sq M.predicted among non-blacks MDRD (S/P/Bld) [Vol rate/Area] 21 mL/min/{1.73_m2} Low >60 [facility] Comment on above: Order Comment: 'TROP ' Serial specimen #1, #2 or #3: 1 Result Comment: Non- GFR Calc Performed By: #### L 500.2500, L100.0100, L501.4020 ####[facility] [address] [place], [address] Glucose [Mass/Vol] 157 mg/dL High 74-106 [facility] Comment on above: Order Comment: 'TROP ' Serial specimen #1, #2 or #3: 1 Result Comment: Fast ing Glucose result greater than or equal to 126 mg/dLsuggests DIABETES MELLITUS per A.D.A. criteria. Performed By: #### L 500.2500, L100.0100, L501.4020 ####[facility] [address] [place], [address] Potassium [Moles/Vol] 3.4 mmol/L Low 3.5-5.1 [facility] Comment on above: Order Comment: 'TROP ' Serial specimen #1, #2 or #3: 1 Performed By: #### L 500.2500, L100.0100, L501.4020 ####[facility] [address] [place], [address] Sodium [Moles/Vol] 132 mmol/L Low 136-145 [facility] Comment on above: Order Comment: 'TROP ' Serial specimen #1, #2 or #3: 1 Performed By: #### L 500.2500, L100.0100, L501.4020 ####[facility] [address] [place], [address] Urea nitrogen [Mass/Vol] 33 mg/dL High 7-18 [facility] Comment on above: Order Comment: 'TROP ' Serial specimen #1, #2 or #3: 1 Performed By: #### L 500.2500, L100.0100, L501.4020 ####[facility] [address] [place], [address] Basophil percentageOrdered B y: Remus Ungur on 07-07-2024 Basophils/100 WBC (Bld) 0.3 % 0-1 [facility] Bilirubin Test strip Ql (U)O rdered By: Remus Ungur on 07-07-2024 Bilirubin Ql (U) 1 mg/dL High Negative [facility] Brain/Head without Contrasto n 07-07-2024 Brain/Head without Contrast Normal [facility] CBC W/Diff, Automatedon 06-23 Absolute Lymph 1.18 X10 3/uL Normal 0.83-4.51 [facility] Comment on above: Performed By: #### L 500.2500, L100.0100, L501.4020 ####[facility] [address] [place], [address] Absolute Neut 6.7 X10 3/uL Normal 2.0-7.7 [facility] Comment on above: Performed By: #### L 500.2500, L100.0100, L501.4020 ####[facility] [address] [place], [address] Basophils/100 WBC (Bld) 0.3 % Normal 0-1 [facility] Comment on above: Performed By: #### L 500.2500, L100.0100, L501.4020 ####[facility] [address] [place], [address] Eosinophils/100 WBC (Bld) 0.1 % Normal 0-5 [facility] Comment on above: Performed By: #### L 500.2500, L100.0100, L501.4020 ####[facility] [address] [place], [address] Erythrocyte distribution width (RBC) [Ratio] 16.6 % High 11.6-14.6 [facility] Comment on above: Performed By: #### L 500.2500, L100.0100, L501.4020 ####[facility] [address] [place], [address] Hematocrit (Bld) [Volume fraction] 27.0 % Low 40-54 [facility] Comment on above: Performed By: #### L 500.2500, L100.0100, L501.4020 ####[facility] [address] [place], [address] Hemoglobin (Bld) [Mass/Vol] 8.1 g/dL Low 13.0-16.5 [facility] Comment on above: Performed By: #### L 500.2500, L100.0100, L501.4020 ####[facility] [address] [place], [address] IG% 0.300 Normal 0.0-0.9 [facility] Comment on above: Result Comment: IG% - Immature Granulocytes (promyelocytes, myelocytes andmetamyelocytes) > 1% indicates that a LEFT SHIFT is Present. Performed By: #### L 500.2500, L100.0100, L501.4020 ####[facility] [address] [place], [address] Lymphocytes/100 WBC (Bld) 13.1 % Low 19-41 [facility] Comment on above: Performed By: #### L 500.2500, L100.0100, L501.4020 ####[facility] [address] [place], [address] MCH (RBC) [Entitic mass] 28.4 pg Normal 27.0-32.0 [facility] Comment on above: Performed By: #### L 500.2500, L100.0100, L501.4020 ####[facility] [address] [place], [address] MCHC (RBC) [Mass/Vol] 30.0 g/dL Low 32-36 [facility] Comment on above: Performed By: #### L 500.2500, L100.0100, L501.4020 ####[facility] [address] [place], [address] MCV (RBC) [Entitic vol] 94.7 fL High 80-94 [facility] Comment on above: Performed By: #### L 500.2500, L100.0100, L501.4020 ####[facility] [address] [place], [address] Monocytes/100 WBC (Bld) 11.4 % High 0-10 [facility] Comment on above: Performed By: #### L 500.2500, L100.0100, L501.4020 ####[facility] [address] [place], [address] Neutrophils/100 WBC (Bld) 74.8 % High 47-70 [facility] Comment on above: Performed By: #### L 500.2500, L100.0100, L501.4020 ####[facility] [address] [place], [address] Nucleated RBC (Bld) [#/Vol] 0 10*3/uL Normal 0-5 [facility] Comment on above: Performed By: #### L 500.2500, L100.0100, L501.4020 ####[facility] [address] [place], [address] Platelet mean volume (Bld) [Entitic vol] 10.7 fL Normal 6.2-12.0 [facility] Comment on above: Performed By: #### L 500.2500, L100.0100, L501.4020 ####[facility] [address] [place], [address] Platelets (Bld) [#/Vol] 211 10*3/uL Normal 150-450 [facility] Comment on above: Performed By: #### L 500.2500, L100.0100, L501.4020 ####[facility] [address] [place], [address] RBC (Bld) [#/Vol] 2.85 10*6/uL Low 4.6-6.2 [facility] Comment on above: Performed By: #### L 500.2500, L100.0100, L501.4020 ####[facility] [address] [place], [address] RDW SD 56.3 fl High 35.1-43.9 [facility] Comment on above: Performed By: #### L 500.2500, L100.0100, L501.4020 ####[facility] [address] [place], [place], [address] WBC (Bld) [#/Vol] 9.0 10*3/uL Normal 4.4-11.0 [facility] Comment on above: Performed By: #### L 500.2500, L100.0100, L501.4020 ####[facility] [address] [place], [place], [address] Carbon dioxide measurementOr dered By: Alicia Loo on 07-07-2024 CO2 [Moles/Vol] 33.0 mmol/L High 21.0-32.0 [facility] Chest 1 View (Portable)on Chest 1 View (Portable) Normal [facility] Chloride measurementOrdered By: Alicia Loo on 07-07-2024 Chloride [Moles/Vol] 91 mmol/L Low 98-107 [facility] Emergency Department Summary on 07-07-2024 Emergency Department Summary Normal [facility] Eosinophil percentageOrdered By: Alciia Loo on 07-07-2024 Eosinophils/100 WBC (Bld) 0.1 % 0-5 [facility] Erythrocyte distribution wid th ratioOrdered By: [facility] on 07-07-2024 Erythrocyte distribution width (RBC) [Ratio] 16.6 % High 11.6-14.6 [facility] Erythrocyte distribution wid th standard deviationOrdered By: Alicia Loo on 07-07-2024 Erythrocyte distribution width (RBC) [Ratio] 56.3 fl High 35.1-43.9 [facility] Glomerular filtration rate ( GFR) estimationOrdered By: Alicia Loo on 07-07-2024 GFR/1.73 sq M.predicted among non-blacks MDRD (S/P/Bld) [Vol rate/Area] 21 mL/min/{1.73_m2} Low >60 [facility] Glucose measurementOrdered B y: Alicia Loo on 07-07-2024 Glucose [Mass/Vol] 157 mg/dL High 74-106 [facility] Hematocrit Auto (Bld) [Volum e fraction]Ordered By: Alicia Loo on 07-07-2024 Hematocrit (Bld) [Volume fraction] 27.0 % Low 40-54 [facility] Hemoglobin measurementOrdere d By: Alicia Loo on 07-07-2024 Hemoglobin (Bld) [Mass/Vol] 8.1 g/dL Low 13.0-16.5 [facility] Immature granulocytes/100 WB C Auto (Bld)Ordered By: Alicia Loo on 07-07-2024 Immature granulocytes/100 WBC (Bld) 0.300 % 0.0-0.9 [facility] Influenza virus A and B and SARS-CoV-2 (COVID-19) and Respiratory syncytial virus RNAOrdered By: Alicia Loo on 07-07-2024 SARS-CoV-2 (COVID-19) RNA EZEKIEL+probe Ql (Unsp spec) [facility] Ketones Test strip Ql (U)Ord ered By: Alicia Loo on 07-07-2024 Ketones Ql (U) 5 mg/dl High Negative [facility] L501.4020on 07-07-2024 TROPONIN-I HS 62 pg/mL Normal 3.0-78.0 [facility] Comment on above: Order Comment: 'TROP ' Serial specimen #1, #2 or #3: 1 Result Comment: Plea se Note: New Test Units and Gender Specific Reference Ranges. For more information see Policy Stat Procedure Broadbent High Sensitivity Troponin (TNIH) and attachments. Performed By: #### L 500.2500, L100.0100, L501.4020 ####[facility] [address] [place], [address] M100.678on 07-07-2024 M100.678 Pending SARS-CoV-2 (COVID 19) Negative INFLUENZA A Negative INFLUENZA B Negative RSV PCR Negative Normal [facility] Comment on above: Performed By: #### M 100.678 ####[facility] [address] [place], [address] MCV (mean corpuscular volume ) determinationOrdered By: Alicia Loo on 07-07-2024 MCV (RBC) [Entitic vol] 94.7 fL High 80-94 [facility] Mean corpuscular hemoglobin (MCH) determinationOrdered By: Alicia Loo on 07-07-2024 MCH (RBC) [Entitic mass] 28.4 pg 27.0-32.0 [facility] Monocyte percentageOrdered B y: Alicia Millsvaughn on 07-07-2024 Monocytes/100 WBC (Bld) 11.4 % High 0-10 [facility] Mucus LM Ql (Urine sed)Order ed By: Alicia Millsvaughn on 07-07-2024 Mucus Ql (Urine sed) 0 SEEN /hpf [facility] Neutrophil percentageOrdered By: Alicia Ungvaughn on 07-07-2024 Neutrophils/100 WBC (Bld) 74.8 % High 47-70 [facility] Nitrite Test strip Ql (U)Ord ered By: Alicia Millsvaughn on 07-07-2024 Nitrite Ql (U) Negative Negative [facility] Platelet countOrdered By: Sowmya belgica Eze on 07-07-2024 Platelets (Bld) [#/Vol] 211 10*3/uL 150-450 [facility] Potassium measurementOrdered By: Alicia Millsvaughn on 07-07-2024 Potassium [Moles/Vol] 3.4 mmol/L Low 3.5-5.1 [facility] Protein Test strip Ql (U)Ord ered By: Alicia Millsvaughn on 07-07-2024 Protein Ql (U) 100 mg/dl High Negative [facility] RBC Auto (Bld) [#/Vol]Ordere d By: Alicia Millsvaughn on 07-07-2024 RBC (Bld) [#/Vol] 2.85 10*6/uL Low 4.6-6.2 [facility] Serum or plasma calcium lilli urement (mass/volume)Ordered By: Kaeus Loo on 07-07-2024 Calcium [Mass/Vol] 8.5 mg/dL 8.5-10.1 [facility] Serum or plasma creatinine m easurement (mass/volume)Ordered By: Kae Ungvaughn on 07-07-2024 Creatinine [Mass/Vol] 3.01 mg/dL High 0.70-1.30 [facility] Serum or plasma urea nitroge n measurement (mass/volume)Ordered By: Alicia Loo on 07-07-2024 Urea nitrogen [Mass/Vol] 33 mg/dL High 7-18 [facility] Sodium levelOrdered By: Michael Loo on 07-07-2024 Sodium [Moles/Vol] 132 mmol/L Low 136-145 [facility] Squamous epithelial cells de tection in urine sediment by light microscopyOrdered By: Alicia Loo on 07-07-2024 Epithelial cells.squamous LM Ql (Urine sed) 0 SEEN /hpf 0-5 [facility] Troponin IOrdered By: Alicia Loo on 07-07-2024 Troponin I 62 pg/mL 3.0-78.0 [facility] Urinalysis, Completeon 07-07 RBC 0 SEEN Normal 0-5 [facility] Comment on above: Order Comment: COLOR OF URINE MAY AFFECT DIPSTICK RESULTS.CLEAN CATCH Performed By: #### L 400.0001 ####[facility] [address] [place], [address] WBC 0-5 SEEN Normal 0-5 [facility] Comment on above: Order Comment: COLOR OF URINE MAY AFFECT DIPSTICK RESULTS.CLEAN CATCH Performed By: #### L 400.0001 ####[facility] [address] [place], [address] BACTERIA 0 SEEN Normal None Seen [facility] Comment on above: Order Comment: COLOR OF URINE MAY AFFECT DIPSTICK RESULTS.CLEAN CATCH Performed By: #### L 400.0001 ####[facility] [address] [place], [address] EPI,SQUAMOUS 0 SEEN Normal 0-5 [facility] Comment on above: Order Comment: COLOR OF URINE MAY AFFECT DIPSTICK RESULTS.CLEAN CATCH Performed By: #### L 400.0001 ####[facility] [address] [place], [address] Mucus Ql (Urine sed) 0 SEEN Normal [facility] Comment on above: Order Comment: COLOR OF URINE MAY AFFECT DIPSTICK RESULTS.CLEAN CATCH Performed By: #### L 400.0001 ####[facility] [address] [place], [address] Urine clarityOrdered By: Kae Loo on 07-07-2024 Clarity (U) Clear Clear [facility] Urine color determinationOrd ered By: Alicia Loo on 07-07-2024 Color (U) Lilia Yellow [facility] Urine glucose detectionOrder ed By: Alicia Loo on 07-07-2024 Glucose Ql (U) 50 mg/dl High Normal [facility] Urine leukocyte esterase det ection by dipstickOrdered By: Alicia Loo on 07-07-2024 Leukocyte esterase Test strip Ql (U) 25 /ul High Negative [facility] Urine pHOrdered By: Alicia Un gur on 07-07-2024 pH (U) 5.0 [pH] 5.0 - 8.0 [facility] Urine sediment bacteria coun t by microscopy (number/high power field)Ordered By: Alicia Loo on 07-07-2024 Bacteria LM.HPF (Urine sed) [#/Area] 0 /[HPF] None Seen [facility] Urine specific gravity measu rementOrdered By: Alicia Loo on 07-07-2024 Specific gravity (U) [Rel density] 1.015 1.002-1.030 [facility] Urine urobilinogen measureme ntOrdered By: Alicia Loo on 07-07-2024 Urobilinogen Ql (U) Normal mg/dl Normal [facility] White blood cell (WBC) count Ordered By: Alicia Loo on 07-07-2024 WBC (Bld) [#/Vol] 9.0 10*3/uL 4.4-11.0 [facility] White blood cell countOrdere d By: Alicia Loo on 07-07-2024 White blood cell count 0-5 SEEN /hpf 0-5 [facility] Bedside Glucoseon 07-04-2024 FINGERSTICK GLU 114 mg/dL High 74-106 [facility] Comment on above: Result Comment: FANG VAZQUEZ OF PATIENT CARE PER NURSING PROTOCOL Performed By: #### L 501.080 ####[facility] [address] [place], [place], [address] Glucose measurement at [facility] deOrdered By: Des Ruelas on 07-04-2024 Glucose [Mass/Vol] 114 mg/dL High 74-106 [facility] Absolute lymphocyte countOrd ered By: Eric Franklin on 07-03-2024 Lymphocytes Auto (Unsp spec) [#/Vol] 1.08 10*3/uL 0.83-4.51 [facility] Automated blood erythrocyte countOrdered By: Eric Franklin on 07-03-2024 RBC (Bld) [#/Vol] 2.75 10*6/uL Low 4.6-6.2 [facility] Comment on above: Performed By: #### L 500.4050, L100.0100 ####[facility] [address] [place], [address] Automated blood hematocrit ( percentage)Ordered By: Eric Franklin on 07-03-2024 Hematocrit (Bld) [Volume fraction] 25.7 % Low 40-54 [facility] Comment on above: Performed By: #### L 500.4050, L100.0100 ####[facility] [address] [place], [address] Automated lymphocyte count a s percentage of total leukocytesOrdered By: Eric Franklin on 07-03-2024 Lymphocytes/100 WBC Auto (Unsp spec) 12.6 % Low 19-41 [facility] Basophil percentageOrdered B y: Eric Franklin on 07-03-2024 Basophils/100 WBC (Bld) 0.2 % Normal 0-1 [facility] Comment on above: Performed By: #### L 500.4050, L100.0100 ####[facility] [address] [place], [address] Bilirubin, totalOrdered By: Eric Franklin on 07-03-2024 Bilirubin [Mass/Vol] 0.60 mg/dL Normal 0.20-1.00 [facility] Comment on above: Result Comment: For patients on eltrombopag therapy, use of Dimension Broadbent TBIL is not recommended. Performed By: #### L 500.4050, L100.0100 ####[facility] [address] [place], [address] CBC W/Diff, Automatedon 06-23 Absolute Lymph 1.08 X10 3/uL Normal 0.83-4.51 [facility] Comment on above: Performed By: #### L 500.4050, L100.0100 ####[facility] [address] [place], [address] Absolute Neut 6.2 X10 3/uL Normal 2.0-7.7 [facility] Comment on above: Performed By: #### L 500.4050, L100.0100 ####[facility] [address] [place], [address] IG% 0.700 Normal 0.0-0.9 [facility] Comment on above: Result Comment: IG% - Immature Granulocytes (promyelocytes, myelocytes andmetamyelocytes) > 1% indicates that a LEFT SHIFT is Present. Performed By: #### L 500.4050, L100.0100 ####[facility] [address] [place], [address] Lymphocytes/100 WBC (Bld) 12.6 % Low 19-41 [facility] Comment on above: Performed By: #### L 500.4050, L100.0100 ####[facility] [address] [place], [address] MCHC (RBC) [Mass/Vol] 31.5 g/dL Low 32-36 [facility] Comment on above: Performed By: #### L 500.4050, L100.0100 ####[facility] [address] [place], [address] Nucleated RBC (Bld) [#/Vol] 0 10*3/uL Normal 0-5 [facility] Comment on above: Performed By: #### L 500.4050, L100.0100 ####[facility] [address] [place], [address] Platelet mean volume (Bld) [Entitic vol] 11.1 fL Normal 6.2-12.0 [facility] Comment on above: Performed By: #### L 500.4050, L100.0100 ####[facility] [address] [place], [address] RDW SD 56.7 fl High 35.1-43.9 [facility] Comment on above: Performed By: #### L 500.4050, L100.0100 ####[facility] [address] [place], [address] Carbon dioxide measurementOr dered By: Eric Franklin on 07-03-2024 CO2 [Moles/Vol] 27.0 mmol/L Normal 21.0-32.0 [facility] Comment on above: Performed By: #### L 500.4050, L100.0100 ####[facility] [address] [place], [address] Chloride measurementOrdered By: Eric Franklin on 07-03-2024 Chloride [Moles/Vol] 96 mmol/L Low 98-107 [facility] Comment on above: Performed By: #### L 500.4050, L100.0100 ####[facility] [address] [place], [address] Comprehensive Metabolic Prof ilon 07-03-2024 Albumin/Globulin [Mass ratio] 0.5 {ratio} Low 0.9-2.4 [facility] Comment on above: Performed By: #### L 500.4050, L100.0100 ####[facility] [address] [place], [address] ALK P 63 U/L Normal 45-117 [facility] Comment on above: Performed By: #### L 500.4050, L100.0100 ####[facility] [address], [address] AST [Catalytic activity/Vol] 26 U/L Normal 15-37 [facility] Comment on above: Result Comment: Mode rate Hemolysis, Result may be falsely increased. Performed By: #### L 500.4050, L100.0100 ####[facility] [address] [place], [address] BUN/CRE 12.2 RATIO Normal 10-20 [facility] Comment on above: Performed By: #### L 500.4050, L100.0100 ####[facility] [address] [place], [address] CA,Total 8.1 mg/dL Low 8.5-10.1 [facility] Comment on above: Performed By: #### L 500.4050, L100.0100 ####[facility] [address] [place], [address] ECRCL 20.19 ml/min Normal [facility] Comment on above: Performed By: #### L 500.4050, L100.0100 ####[facility] [address] [place], [address] EST GFR - AA 25 mL/min Low >60 [facility] Comment on above: Result Comment: Afri can [place] GFR Calc Performed By: #### L 500.4050, L100.0100 ####[facility] [address] [place], [address] GAP 11 Normal 5-15 [facility] Comment on above: Performed By: #### L 500.4050, L100.0100 ####[facility] [address] [place], [address] T PROT 7.1 g/dL Normal 6.4-8.2 [facility] Comment on above: Performed By: #### L 500.4050, L100.0100 ####[facility] [address] [place], [address] Emergency Department Summary on 07-03-2024 Emergency Department Summary Normal [facility] Eosinophil percentageOrdered By: Eric Lechugao on 07-03-2024 Eosinophils/100 WBC (Bld) 0.3 % Normal 0-5 [facility] Comment on above: Performed By: #### L 500.4050, L100.0100 ####[facility] [address] [place], [address] Erythrocyte distribution wid th ratioOrdered By: Eric Franklin on 07-03-2024 Erythrocyte distribution width (RBC) [Ratio] 17.2 % High 11.6-14.6 [facility] Comment on above: Performed By: #### L 500.4050, L100.0100 ####[facility] [address] [place], [address] Erythrocyte distribution wid th standard deviationOrdered By: Eric Franklin on 07-03-2024 Erythrocyte distribution width (RBC) [Ratio] 56.7 fl High 35.1-43.9 [facility] Glomerular filtration rate ( GFR) estimationOrdered By: Ericjorge Franklin on 07-03-2024 GFR/1.73 sq M.predicted among non-blacks MDRD (S/P/Bld) [Vol rate/Area] 21 mL/min/{1.73_m2} Low >60 [facility] Comment on above: Result Comment: Non- GFR Calc Performed By: #### L 500.4050, L100.0100 ####[facility] [address] [place], [address] Glucose measurementOrdered B y: Eric Franklin on 07-03-2024 Glucose [Mass/Vol] 161 mg/dL High 74-106 [facility] Comment on above: Result Comment: Fast ing Glucose result greater than or equal to 126 mg/dLsuggests DIABETES MELLITUS per A.D.A. criteria. Performed By: #### L 500.4050, L100.0100 ####[facility] [address] [place], [address] Hemoglobin measurementOrdere d By: Eric Franklin on 07-03-2024 Hemoglobin (Bld) [Mass/Vol] 8.1 g/dL Low 13.0-16.5 [facility] Comment on above: Performed By: #### L 500.4050, L100.0100 ####[facility] [address] [place], [address] Immature granulocytes/100 WB C Auto (Bld)Ordered By: Eric Franklin on 07-03-2024 Immature granulocytes/100 WBC (Bld) 0.700 % 0.0-0.9 [facility] MCV (mean corpuscular volume ) determinationOrdered By: Eric Franklin on 07-03-2024 MCV (RBC) [Entitic vol] 93.5 fL Normal 80-94 [facility] Comment on above: Performed By: #### L 500.4050, L100.0100 ####[facility] [address] [place], [address] Mean corpuscular hemoglobin (MCH) determinationOrdered By: Eric Lechugao on 07-03-2024 MCH (RBC) [Entitic mass] 29.5 pg Normal 27.0-32.0 [facility] Comment on above: Performed By: #### L 500.4050, L100.0100 ####[facility] [address] [place], [address] Monocyte percentageOrdered B y: Eric Franklin on 07-03-2024 Monocytes/100 WBC (Bld) 14.5 % High 0-10 [facility] Comment on above: Performed By: #### L 500.4050, L100.0100 ####[facility] [address] [place], [address] Neutrophil percentageOrdered By: Eric Franklin on 07-03-2024 Neutrophils/100 WBC (Bld) 71.7 % High 47-70 [facility] Comment on above: Performed By: #### L 500.4050, L100.0100 ####[facility] [address] [place], [address] No Panel InformationOrdered By: Eric Lechugao on 07-03-2024 26 U/L 15-37 [facility] Platelet countOrdered By: Leonila Franklin on 07-03-2024 Platelets (Bld) [#/Vol] 194 10*3/uL Normal 150-450 [facility] Comment on above: Performed By: #### L 500.4050, L100.0100 ####[facility] [address] [place], [address] Potassium measurementOrdered By: Eric Lechugao on 07-03-2024 Potassium [Moles/Vol] 4.2 mmol/L Normal 3.5-5.1 [facility] [place] Comment on above: Result Comment: Mode rate Hemolysis, Result may be falsely increased. Performed By: #### L 500.4050, L100.0100 ####[facility] [address] [place], [address] Serum globulin measurementOr dered By: Eric Lechugao on 07-03-2024 Globulin (S) [Mass/Vol] 4.7 g/dL High 2.2-4.2 [facility] Comment on above: Performed By: #### L 500.4050, L100.0100 ####[facility] [address] [place], [address] Serum or plasma alanine hawkins otransferase (ALT) measurementOrdered By: Ericjorge Lechugao on 07-03-2024 ALT [Catalytic activity/Vol] 13 U/L Low 16-61 [facility] Comment on above: Performed By: #### L 500.4050, L100.0100 ####[facility] [address] [place], [address] Serum or plasma albumin lilli urement (mass/volume)Ordered By: Eric Franklin on 07-03-2024 Albumin [Mass/Vol] 2.4 g/dL Low 3.2-5.0 [facility] Comment on above: Performed By: #### L 500.4050, L100.0100 ####[facility] [address] [place], [address] Serum or plasma alkaline penelope sphatase measurementOrdered By: Eric Franklin on 07-03-2024 ALP [Catalytic activity/Vol] 63 U/L 45-117 [facility] Serum or plasma calcium lilli urement (mass/volume)Ordered By: Eric Franklin on 07-03-2024 Calcium [Mass/Vol] 8.1 mg/dL Low 8.5-10.1 [facility] Serum or plasma creatinine m easurement (mass/volume)Ordered By: Eric Franklin on 07-03-2024 Creatinine [Mass/Vol] 3.04 mg/dL High 0.70-1.30 [facility] Comment on above: Result Comment: The validity of the calculated GFR GFRAA in patients over70 years has not been determined. Clinical correlation isessential. Performed By: #### L 500.4050, L100.0100 ####[facility] [address] [place], [address] Serum or plasma urea nitroge n measurement (mass/volume)Ordered By: Eric Franklin on 07-03-2024 Urea nitrogen [Mass/Vol] 37 mg/dL High 7-18 [facility] Comment on above: Performed By: #### L 500.4050, L100.0100 ####[facility] [address] [place], [address] Sodium levelOrdered By: Eric Franklin on 07-03-2024 Sodium [Moles/Vol] 134 mmol/L Low 136-145 [facility] Comment on above: Performed By: #### L 500.4050, L100.0100 ####[facility] [address] [place], [address] Total proteinOrdered By: Eric Franklin on 07-03-2024 Protein [Mass/Vol] 7.1 g/dL 6.4-8.2 [facility] White blood cell (WBC) count Ordered By: Eric Franklin on 07-03-2024 WBC (Bld) [#/Vol] 8.6 10*3/uL Normal 4.4-11.0 [facility] Comment on above: Performed By: #### L 500.4050, L100.0100 ####[facility] [address] [place], [address] 12 Lead EKGon 07-02-2024 12 Lead EKG Normal [facility] Absolute lymphocyte countOrd ered By: Nando Wiggins on 07-02-2024 Lymphocytes Auto (Unsp spec) [#/Vol] 1.88 10*3/uL 0.83-4.51 [facility] Automated lymphocyte count a s percentage of total leukocytesOrdered By: Nando Wiggins on 07-02-2024 Lymphocytes/100 WBC Auto (Unsp spec) 20.3 % 19-41 [facility] Basic Metabolic Profile (BMP )on 07-02-2024 BUN/CRE 18.1 RATIO Normal 10-20 [facility] Comment on above: Performed By: #### L 500.2500 ####[facility] [address] [place], [place], [id number] CA,Total 9.1 mg/dL Normal 8.5-10.1 [facility] Comment on above: Performed By: #### L 500.2500 ####[facility] [address] [place], [address] Chloride [Moles/Vol] 98 mmol/L Normal 98-107 [facility] Comment on above: Performed By: #### L 500.2500 ####[facility] [address] [place], [place], [phone] CO2 [Moles/Vol] 26.0 mmol/L Normal 21.0-32.0 [facility] Comment on above: Performed By: #### L 500.2500 ####[facility] [address] [place], [address] Creatinine [Mass/Vol] 4.63 mg/dL High 0.70-1.30 [facility] [place] Comment on above: Result Comment: The validity of the calculated GFR GFRAA in patients over70 years has not been determined. Clinical correlation isessential. Performed By: #### L 500.2500 ####[facility] [address] [place], [address] ECRCL 12.30 ml/min Normal [facility] Comment on above: Performed By: #### L 500.2500 ####[facility] [address] [place], [address] EST GFR - AA 16 mL/min Low >60 [facility] Comment on above: Result Comment: Afri can [place] GFR Calc Performed By: #### L 500.2500 ####[facility] [address] [place], [address] GAP 9 Normal 5-15 [facility] Comment on above: Performed By: #### L 500.2500 ####[facility] [address] [place], [address] GFR/1.73 sq M.predicted among non-blacks MDRD (S/P/Bld) [Vol rate/Area] 13 mL/min/{1.73_m2} Low >60 [facility] Comment on above: Result Comment: Non- GFR Calc Performed By: #### L 500.2500 ####[facility] [address] [place], [address] Glucose [Mass/Vol] 134 mg/dL High 74-106 [facility] Comment on above: Result Comment: Fast ing Glucose result greater than or equal to 126 mg/dLsuggests DIABETES MELLITUS per A.D.A. criteria. Performed By: #### L 500.2500 ####[facility] [address] [place], [address] Potassium [Moles/Vol] 4.3 mmol/L Normal 3.5-5.1 [facility] [place] Comment on above: Performed By: #### L 500.2500 ####[facility] [address] [place], [address] Sodium [Moles/Vol] 133 mmol/L Low 136-145 [facility] Comment on above: Performed By: #### L 500.2500 ####[facility] [address] [place], [place], [address] Urea nitrogen [Mass/Vol] 84 mg/dL High 7-18 [facility] Comment on above: Performed By: #### L 500.2500 ####[facility] [address] [place], [address] Basophil percentageOrdered B y: Nando Wiggins on 07-02-2024 Basophils/100 WBC (Bld) 0.3 % 0-1 [facility] Bedside Glucoseon 07-02-2024 FINGERSTICK GLU 230 mg/dL High 74-106 [facility] Comment on above: Result Comment: FANG VAZQUEZ OF PATIENT CARE PER NURSING PROTOCOL Performed By: #### L 501.080 ####[facility] [address] [place], [place], [address] Carbon dioxide measurementOr dered By: Fernando Oliveros on 07-02-2024 CO2 [Moles/Vol] 26.0 mmol/L 21.0-32.0 [facility] Carbon dioxide measurementOr dered By: Nando Wiggins on 07-02-2024 CO2 [Moles/Vol] 25.0 mmol/L 21.0-32.0 [facility] Chloride measurementOrdered By: Fernando Oliveros on 07-02-2024 Chloride [Moles/Vol] 98 mmol/L 98-107 [facility] Chloride measurementOrdered By: Nando Wiggins on 07-02-2024 Chloride [Moles/Vol] 96 mmol/L Low 98-107 [facility] Emergency Department Summary on 07-02-2024 Emergency Department Summary Normal [facility] Eosinophil percentageOrdered By: Nando Wiggins on 07-02-2024 Eosinophils/100 WBC (Bld) 3.0 % 0-5 [facility] Erythrocyte distribution wid th ratioOrdered By: Nando Wiggins on 07-02-2024 Erythrocyte distribution width (RBC) [Ratio] 17.2 % High 11.6-14.6 [facility] Erythrocyte distribution wid th standard deviationOrdered By: Nando Wiggins on 07-02-2024 Erythrocyte distribution width (RBC) [Ratio] 58.0 fl High 35.1-43.9 [facility] Glomerular filtration rate ( GFR) estimationOrdered By: Fernando Oliveros on 07-02-2024 GFR/1.73 sq M.predicted among non-blacks MDRD (S/P/Bld) [Vol rate/Area] 13 mL/min/{1.73_m2} Low >60 [facility] Glomerular filtration rate ( GFR) estimationOrdered By: Nando Wiggins on 07-02-2024 GFR/1.73 sq M.predicted among non-blacks MDRD (S/P/Bld) [Vol rate/Area] 8 mL/min/{1.73_m2} Low >60 [facility] Glucose measurementOrdered B y: Fernando Oliveros on 07-02-2024 Glucose [Mass/Vol] 134 mg/dL High 74-106 [facility] Glucose measurementOrdered B y: Nando Wiggins on 07-02-2024 Glucose [Mass/Vol] 134 mg/dL High 74-106 [facility] Glucose measurement at bedsi deOrdered By: Fernando Oliveros on 07-02-2024 Glucose [Mass/Vol] 230 mg/dL High 74-106 [facility] H AND P Exam - Hospitaliston 07-02-2024 H&P Exam - Hospitalist Normal [facility] Hematocrit Auto (Bld) [Volum e fraction]Ordered By: Nando Wiggins on 07-02-2024 Hematocrit (Bld) [Volume fraction] 25.7 % Low 40-54 [facility] Hemoglobin measurementOrdere d By: Nando Wiggins on 07-02-2024 Hemoglobin (Bld) [Mass/Vol] 8.0 g/dL Low 13.0-16.5 [facility] Immature granulocytes/100 WB C Auto (Bld)Ordered By: Nando Wiggins on 07-02-2024 Immature granulocytes/100 WBC (Bld) 0.500 % 0.0-0.9 [facility] MCV (mean corpuscular volume ) determinationOrdered By: Nando Wiggins on 07-02-2024 MCV (RBC) [Entitic vol] 96.3 fL High 80-94 [facility] Mean corpuscular hemoglobin (MCH) determinationOrdered By: Nando Wiggins on 07-02-2024 MCH (RBC) [Entitic mass] 30.0 pg 27.0-32.0 [facility] Monocyte percentageOrdered B y: Nando Wiggins on 07-02-2024 Monocytes/100 WBC (Bld) 11.7 % High 0-10 [facility] Neutrophil percentageOrdered By: Nando Edenlakshmidesiree on 07-02-2024 Neutrophils/100 WBC (Bld) 64.2 % 47-70 [facility] Platelet countOrdered By: rehanwolf Edenlakshmidesiree on 07-02-2024 Platelets (Bld) [#/Vol] 198 10*3/uL 150-450 [facility] Potassium measurementOrdered By: Fernando Oliveros on 07-02-2024 Potassium [Moles/Vol] 4.3 mmol/L 3.5-5.1 [facility] [place] Potassium measurementOrdered By: Nando Wiggins on 07-02-2024 Potassium [Moles/Vol] 5.9 mmol/L High 3.5-5.1 [facility] RBC Auto (Bld) [#/Vol]Ordere d By: Nando Wiggins on 07-02-2024 RBC (Bld) [#/Vol] 2.67 10*6/uL Low 4.6-6.2 [facility] Serum or plasma calcium lilli urement (mass/volume)Ordered By: Fernando Oliveros on 07-02-2024 Calcium [Mass/Vol] 9.1 mg/dL 8.5-10.1 [facility] Serum or plasma calcium lilli urement (mass/volume)Ordered By: Nando Wiggins on 07-02-2024 Calcium [Mass/Vol] 8.1 mg/dL Low 8.5-10.1 [facility] Serum or plasma creatinine m easurement (mass/volume)Ordered By: Fernando Oliveros on 07-02-2024 Creatinine [Mass/Vol] 4.63 mg/dL High 0.70-1.30 [facility] Serum or plasma creatinine m easurement (mass/volume)Ordered By: Nando Wiggins on 07-02-2024 Creatinine [Mass/Vol] 7.24 mg/dL High 0.70-1.30 [facility] [place] Serum or plasma urea nitroge n measurement (mass/volume)Ordered By: Fernando Oliveros on 07-02-2024 Urea nitrogen [Mass/Vol] 84 mg/dL High 7- [facility] Serum or plasma urea nitroge n measurement (mass/volume)Ordered By: Nando Wiggins on 07-02-2024 Urea nitrogen [Mass/Vol] 126 mg/dL High - [facility] Sodium levelOrdered By: Fernando Oliveros on 07-02-2024 Sodium [Moles/Vol] 133 mmol/L Low 136-145 [facility] Sodium levelOrdered By: Deb Wiggins on 07-02-2024 Sodium [Moles/Vol] 130 mmol/L Low 136-145 [facility] White blood cell (WBC) count Ordered By: Nando Wiggins on 07-02-2024 WBC (Bld) [#/Vol] 9.3 10*3/uL 4.4-11.0 [facility] Absolute lymphocyte countOrd ered By: Nando Wiggins on 06-25-2024 Lymphocytes Auto (Unsp spec) [#/Vol] 2.51 10*3/uL 0.83-4.51 [facility] Automated lymphocyte count a s percentage of total leukocytesOrdered By: Nando Wiggins on 06-25-2024 Lymphocytes/100 WBC Auto (Unsp spec) 29.7 % 19-41 [facility] Basophil percentageOrdered B y: Nando Meekcheko on 06-25-2024 Basophils/100 WBC (Bld) 0.6 % 0-1 [facility] Carbon dioxide measurementOr dered By: Nando Wiggins on 06-25-2024 CO2 [Moles/Vol] 27.0 mmol/L 21.0-32.0 [facility] Chloride measurementOrdered By: Nando Wiggins on 06-25-2024 Chloride [Moles/Vol] 96 mmol/L Low 98-107 [facility] Eosinophil percentageOrdered By: Nando Wiggins on 06-25-2024 Eosinophils/100 WBC (Bld) 3.5 % 0-5 [facility] Erythrocyte distribution wid th ratioOrdered By: biancacollege parkwolf Wiggins on 06-25-2024 Erythrocyte distribution width (RBC) [Ratio] 15.1 % High 11.6-14.6 [facility] Erythrocyte distribution wid th standard deviationOrdered By: biancacollege parkwolf Wiggins on 06-25-2024 Erythrocyte distribution width (RBC) [Ratio] 52.1 fl High 35.1-43.9 [facility] Glomerular filtration rate ( GFR) estimationOrdered By: Nando Wiggins on 06-25-2024 GFR/1.73 sq M.predicted among non-blacks MDRD (S/P/Bld) [Vol rate/Area] 11 mL/min/{1.73_m2} Low >60 [facility] Glucose measurementOrdered B y: Nando Wiggins on 06-25-2024 Glucose [Mass/Vol] 136 mg/dL High 74-106 [facility] Hematocrit Auto (Bld) [Volum e fraction]Ordered By: Nando Wiggins on 06-25-2024 Hematocrit (Bld) [Volume fraction] 27.3 % Low 40-54 [facility] Hemoglobin measurementOrdere d By: Nando Wiggins on 06-25-2024 Hemoglobin (Bld) [Mass/Vol] 8.0 g/dL Low 13.0-16.5 [facility] Immature granulocytes/100 WB C Auto (Bld)Ordered By: Nando Edenlakshmidesiree on 06-25-2024 Immature granulocytes/100 WBC (Bld) 1.500 % High 0.0-0.9 [facility] MCV (mean corpuscular volume ) determinationOrdered By: Nando Wiggins on 06-25-2024 MCV (RBC) [Entitic vol] 95.5 fL High 80-94 [facility] Mean corpuscular hemoglobin (MCH) determinationOrdered By: Nando Edenlakshmidesiree on 06-25-2024 MCH (RBC) [Entitic mass] 28.0 pg 27.0-32.0 [facility] Monocyte percentageOrdered B y: Debsrinathwolf Edenlakshmidesiree on 06-25-2024 Monocytes/100 WBC (Bld) 8.3 % 0-10 [facility] Neutrophil percentageOrdered By: Nando Edenlakshmidesiree on 06-25-2024 Neutrophils/100 WBC (Bld) 56.4 % 47-70 [facility] Platelet countOrdered By: Kathie rehanwolf Edenlakshmidesiree on 06-25-2024 Platelets (Bld) [#/Vol] 210 10*3/uL 150-450 [facility] Potassium measurementOrdered By: Nando Wiggins on 06-25-2024 Potassium [Moles/Vol] 4.2 mmol/L 3.5-5.1 [facility] [place] RBC Auto (Bld) [#/Vol]Ordere d By: Debsrinathwolf Edenlakshmidesiree on 06-25-2024 RBC (Bld) [#/Vol] 2.86 10*6/uL Low 4.6-6.2 [facility] Serum or plasma calcium lilli urement (mass/volume)Ordered By: Nando Wiggins on 06-25-2024 Calcium [Mass/Vol] 9.0 mg/dL 8.5-10.1 [facility] Serum or plasma creatinine m easurement (mass/volume)Ordered By: Nando Wiggins on 06-25-2024 Creatinine [Mass/Vol] 5.23 mg/dL High 0.70-1.30 [facility] Serum or plasma urea nitroge n measurement (mass/volume)Ordered By: Nando Wiggins on 06-25-2024 Urea nitrogen [Mass/Vol] 72 mg/dL High 7-18 [facility] Sodium levelOrdered By: Deb lilian Rosalie on 06-25-2024 Sodium [Moles/Vol] 134 mmol/L Low 136-145 [facility] White blood cell (WBC) count Ordered By: Nando Wiggins on 06-25-2024 WBC (Bld) [#/Vol] 8.5 10*3/uL 4.4-11.0 [facility] MR/BMS.BVSon 06-20-2024 MR/BMS.BVS Normal [facility] Absolute lymphocyte countOrd ered By: Nando Wiggins on 06-18-2024 Lymphocytes Auto (Unsp spec) [#/Vol] 2.74 10*3/uL 0.83-4.51 [facility] Automated lymphocyte count a s percentage of total leukocytesOrdered By: Nando Wiggins on 06-18-2024 Lymphocytes/100 WBC Auto (Unsp spec) 31.0 % 19-41 [facility] Basophil percentageOrdered B y: Nando Wiggins on 06-18-2024 Basophils/100 WBC (Bld) 0.6 % 0-1 [facility] Carbon dioxide measurementOr dered By: Nando Wiggins on 06-18-2024 CO2 [Moles/Vol] 32.0 mmol/L 21.0-32.0 [facility] Chloride measurementOrdered By: Nando Wiggins on 06-18-2024 Chloride [Moles/Vol] 95 mmol/L Low 98-107 [facility] Eosinophil percentageOrdered By: Nando Wiggins on 06-18-2024 Eosinophils/100 WBC (Bld) 3.1 % 0-5 [facility] Erythrocyte distribution wid th ratioOrdered By: Nando Wiggins on 06-18-2024 Erythrocyte distribution width (RBC) [Ratio] 14.6 % 11.6-14.6 [facility] Erythrocyte distribution wid th standard deviationOrdered By: Nando Wiggins on 06-18-2024 Erythrocyte distribution width (RBC) [Ratio] 50.6 fl High 35.1-43.9 [facility] Glomerular filtration rate ( GFR) estimationOrdered By: Nando Wiggins on 06-18-2024 GFR/1.73 sq M.predicted among non-blacks MDRD (S/P/Bld) [Vol rate/Area] 12 mL/min/{1.73_m2} Low >60 [facility] Glucose measurementOrdered B y: Nando Wiggins on 06-18-2024 Glucose [Mass/Vol] 81 mg/dL 74-106 [facility] Hematocrit Auto (Bld) [Volum e fraction]Ordered By: Nando Wiggins on 06-18-2024 Hematocrit (Bld) [Volume fraction] 28.6 % Low 40-54 [facility] Hemoglobin measurementOrdere d By: Nando Wiggins on 06-18-2024 Hemoglobin (Bld) [Mass/Vol] 8.4 g/dL Low 13.0-16.5 [facility] Immature granulocytes/100 WB C Auto (Bld)Ordered By: Nando Wiggins on 06-18-2024 Immature granulocytes/100 WBC (Bld) 0.300 % 0.0-0.9 [facility] MCV (mean corpuscular volume ) determinationOrdered By: Nando Wiggins on 06-18-2024 MCV (RBC) [Entitic vol] 95.0 fL High 80-94 [facility] Mean corpuscular hemoglobin (MCH) determinationOrdered By: Nando Wiggins on 06-18-2024 MCH (RBC) [Entitic mass] 27.9 pg 27.0-32.0 [facility] Monocyte percentageOrdered B y: Nando Wiggins on 06-18-2024 Monocytes/100 WBC (Bld) 8.3 % 0-10 [facility] Neutrophil percentageOrdered By: Nando Wiggins on 06-18-2024 Neutrophils/100 WBC (Bld) 56.7 % 47-70 [facility] Platelet countOrdered By: Kathie Wiggins on 06-18-2024 Platelets (Bld) [#/Vol] 301 10*3/uL 150-450 [facility] Potassium measurementOrdered By: Nando Wiggins on 06-18-2024 Potassium [Moles/Vol] 4.7 mmol/L 3.5-5.1 [facility] RBC Auto (Bld) [#/Vol]Ordere d By: Debsrinathwolf Edenlakshmidesiree on 06-18-2024 RBC (Bld) [#/Vol] 3.01 10*6/uL Low 4.6-6.2 [facility] Serum or plasma calcium lilli urement (mass/volume)Ordered By: Nando Wiggins on 06-18-2024 Calcium [Mass/Vol] 9.5 mg/dL 8.5-10.1 [facility] Serum or plasma creatinine m easurement (mass/volume)Ordered By: Nando Wiggins on 06-18-2024 Creatinine [Mass/Vol] 5.06 mg/dL High 0.70-1.30 [facility] Serum or plasma urea nitroge n measurement (mass/volume)Ordered By: Nando Wiggins on 06-18-2024 Urea nitrogen [Mass/Vol] 69 mg/dL High 7-18 [facility] Sodium levelOrdered By: Deb quintana Rosalie on 06-18-2024 Sodium [Moles/Vol] 134 mmol/L Low 136-145 [facility] White blood cell (WBC) count Ordered By: Nando Wiggins on 06-18-2024 WBC (Bld) [#/Vol] 8.8 10*3/uL 4.4-11.0 [facility] Absolute lymphocyte countOrd ered By: Nando Wiggins on 06-11-2024 Lymphocytes Auto (Unsp spec) [#/Vol] 2.00 10*3/uL 0.83-4.51 [facility] Automated lymphocyte count a s percentage of total leukocytesOrdered By: Nando Wiggins on 06-11-2024 Lymphocytes/100 WBC Auto (Unsp spec) 25.4 % 19-41 [facility] Basophil percentageOrdered B y: Debsrinathwolf Wiggins on 06-11-2024 Basophils/100 WBC (Bld) 0.6 % 0-1 [facility] CNPTOUTREACHon 06-11-2024 CNPTOUTREACH Normal [facility] Carbon dioxide measurementOr dered By: Nando Wiggins on 06-11-2024 CO2 [Moles/Vol] 30.0 mmol/L 21.0-32.0 [facility] Chloride measurementOrdered By: Nando Wiggins on 06-11-2024 Chloride [Moles/Vol] 94 mmol/L Low 98-107 [facility] Culture, Anaerobic Any Sourc reed 06-11-2024 CUAN Right Forefoot No growth in 5 days. Normal [facility] Comment on above: Performed By: #### M 100.3000, M600.2200, M300.2000, M100.4001, M300.3000, M100.2000, M600.2000 ####[facility] [address] [place], [place], [id number] Eosinophil percentageOrdered By: Nando Wiggins on 06-11-2024 Eosinophils/100 WBC (Bld) 2.7 % 0-5 [facility] Erythrocyte distribution wid th ratioOrdered By: Nando Wiggins on 06-11-2024 Erythrocyte distribution width (RBC) [Ratio] 14.6 % 11.6-14.6 [facility] Erythrocyte distribution wid th standard deviationOrdered By: Nando Wiggins on 06-11-2024 Erythrocyte distribution width (RBC) [Ratio] 50.4 fl High 35.1-43.9 [facility] Glomerular filtration rate ( GFR) estimationOrdered By: Nando Wiggins on 06-11-2024 GFR/1.73 sq M.predicted among non-blacks MDRD (S/P/Bld) [Vol rate/Area] 10 mL/min/{1.73_m2} Low >60 [facility] Glucose measurementOrdered B y: Nando Wiggins on 06-11-2024 Glucose [Mass/Vol] 222 mg/dL High 74-106 [facility] Hematocrit Auto (Bld) [Volum e fraction]Ordered By: Nando Wiggins on 06-11-2024 Hematocrit (Bld) [Volume fraction] 27.0 % Low 40-54 [facility] Hemoglobin measurementOrdere d By: Nando Meeklakshmidesiree on 06-11-2024 Hemoglobin (Bld) [Mass/Vol] 8.1 g/dL Low 13.0-16.5 [facility] Immature granulocytes/100 WB C Auto (Bld)Ordered By: Nando Edenlakshmidesiree on 06-11-2024 Immature granulocytes/100 WBC (Bld) 0.500 % 0.0-0.9 [facility] MCV (mean corpuscular volume ) determinationOrdered By: Nando Edenlakshmidesiree on 06-11-2024 MCV (RBC) [Entitic vol] 94.7 fL High 80-94 [facility] Mean corpuscular hemoglobin (MCH) determinationOrdered By: Nando Edenlakshmidesiree on 06-11-2024 MCH (RBC) [Entitic mass] 28.4 pg 27.0-32.0 [facility] Monocyte percentageOrdered B y: Debsrinathwolf Edenlakshmidesiree on 06-11-2024 Monocytes/100 WBC (Bld) 9.7 % 0-10 [facility] Neutrophil percentageOrdered By: Kathiebiancalilian Meeklakshmidesiree on 06-11-2024 Neutrophils/100 WBC (Bld) 61.1 % 47-70 [facility] Platelet countOrdered By: Kathie fili Meeklakshmidesiree on 06-11-2024 Platelets (Bld) [#/Vol] 295 10*3/uL 150-450 [facility] Potassium measurementOrdered By: Nando Edenlakshmidesiree on 06-11-2024 Potassium [Moles/Vol] 5.1 mmol/L 3.5-5.1 [facility] [place] RBC Auto (Bld) [#/Vol]Ordere d By: Kathiebiancalilian Meeklakshmidesiree on 06-11-2024 RBC (Bld) [#/Vol] 2.85 10*6/uL Low 4.6-6.2 [facility] Serum or plasma calcium lilli urement (mass/volume)Ordered By: Nando Wiggins on 06-11-2024 Calcium [Mass/Vol] 9.1 mg/dL 8.5-10.1 [facility] Serum or plasma creatinine m easurement (mass/volume)Ordered By: Nando Wiggins on 06-11-2024 Creatinine [Mass/Vol] 5.75 mg/dL High 0.70-1.30 [facility] Serum or plasma urea nitroge n measurement (mass/volume)Ordered By: Nando Wiggins on 06-11-2024 Urea nitrogen [Mass/Vol] 69 mg/dL High 7-18 [facility] Sodium levelOrdered By: Deb Wiggins on 06-11-2024 Sodium [Moles/Vol] 131 mmol/L Low 136-145 [facility] White blood cell (WBC) count Ordered By: Nando Wiggins on 06-11-2024 WBC (Bld) [#/Vol] 7.9 10*3/uL 4.4-11.0 [facility] Bilirubin directOrdered By: Nando Wiggins on 06-08-2024 Bilirubin.direct [Mass/Vol] 0.14 mg/dL 0.00-0.30 [facility] Bilirubin, totalOrdered By: Nando Wiggins on 06-08-2024 Bilirubin [Mass/Vol] 0.40 mg/dL 0.20-1.00 [facility] Hemoglobin A1c percentageOrd ered By: Nando Wiggins on 06-08-2024 HbA1c (Bld) [Mass fraction] 7.7 % High 3.8-5.6 [facility] No Panel InformationOrdered By: Nando Wiggins on 06-08-2024 14 U/L Low 15-37 [facility] Serum globulin measurementOr dered By: Nando Wiggins on 06-08-2024 Globulin (S) [Mass/Vol] 4.4 g/dL High 2.2-4.2 [facility] Serum or plasma alanine hawkins otransferase (ALT) measurementOrdered By: Nando Wiggins on 06-08-2024 ALT [Catalytic activity/Vol] 7 U/L Low 16-61 [facility] Serum or plasma albumin lilli urement (mass/volume)Ordered By: Nando Wiggins on 06-08-2024 Albumin [Mass/Vol] 2.2 g/dL Low 3.2-5.0 [facility] Serum or plasma alkaline penelope sphatase measurementOrdered By: Nando Wiggins on 06-08-2024 ALP [Catalytic activity/Vol] 56 U/L 45-117 [facility] Total proteinOrdered By: Sinan brayan Rosalie on 06-08-2024 Protein [Mass/Vol] 6.6 g/dL 6.4-8.2 [facility] Wound Cultureon 06-08-2024 WC Right Forefoot No growth aerobically. Normal [facility] Comment on above: Performed By: #### M 100.3000, M600.2200, M300.2000, M100.4001, M300.3000, M100.2000, M600.2000 ####[facility] [address] [place], [place], [id number] Acid fast bacillus (AFB) cul tureOrdered By: Des Ruelas on 06-06-2024 Mycobacterium sp identified Org specific cx Nom (Unsp spec) [facility] Anaerobic cultureOrdered By: Des Ruelas on 06-06-2024 Bacteria identified Anaer cx Nom (Unsp spec) No growth in 5 days. [facility] Bedside Glucoseon 06-06-2024 FINGERSTICK GLU 102 mg/dL Normal 74-106 [facility] Comment on above: Result Comment: FANG GEMENT OF PATIENT CARE PER NURSING PROTOCOL Performed By: #### L 501.080 ####[facility] [address] [place], [place], [id number] Bilirubin directOrdered By: Nando Wiggins on 06-06-2024 Bilirubin.direct [Mass/Vol] 0.12 mg/dL 0.00-0.30 [facility] Bilirubin, totalOrdered By: Nando Wiggins on 06-06-2024 Bilirubin [Mass/Vol] 0.30 mg/dL 0.20-1.00 [facility] Decalcification bone/plaqueo n 06-06-2024 Decalcification bone/plaque Normal [facility] Comment on above: Performed By: #### P DEC ####[facility] [address] [place], [place], [id number] Foot min 3 Viewson 5 Foot min 3 Views Normal [facility] Fungus cultureOrdered By: Kana Ruelas on 06-06-2024 Fungus identified Cx Nom (Unsp spec) [facility] Fungus stainOrdered By: Juve Ruelas on 06-06-2024 Fungus identified Fungus stain Nom (Unsp spec) [facility] Glucose measurement at [facility] deOrdered By: Des Ruelas on 06-06-2024 Glucose [Mass/Vol] 102 mg/dL 74-106 [facility] Gram Stainon 06-06-2024 GS Right Forefoot Gram Stain 4+ Red Blood Cells 1+ White Blood Cells No organisms seen Normal [facility] Comment on above: Performed By: #### M 100.3000, M600.2200, M300.2000, M100.4001, M300.3000, M100.2000, M600.2000 ####[facility] [address] [place], [address] Gram stainOrdered By: Des Ruelas on 06-06-2024 Microscopic observation Gram stain Nom (Unsp spec) [facility] Hemoglobin A1c percentageOrd ered By: Nando Wiggins on 06-06-2024 HbA1c (Bld) [Mass fraction] 8.0 % High 3.8-5.6 [facility] MR/POSTOP.ANEon 06-06-2024 MR/POSTOP.ANE Normal [facility] MR/[id number] 06-06-2024 MR/POSTOPAN2 Normal [facility] No Panel InformationOrdered By: Nando Wiggins on 06-06-2024 13 U/L Low 15-37 [facility] Operative Reporton 5 Operative Report Normal [facility] Serum globulin measurementOr dered By: Nando Wiggins on 06-06-2024 Globulin (S) [Mass/Vol] 5.1 g/dL High 2.2-4.2 [facility] Serum or plasma alanine hawkins otransferase (ALT) measurementOrdered By: Nando Wiggins on 06-06-2024 ALT [Catalytic activity/Vol] 18 U/L 16-61 [facility] Serum or plasma albumin lilli urement (mass/volume)Ordered By: Nando Wiggins on 06-06-2024 Albumin [Mass/Vol] 2.4 g/dL Low 3.2-5.0 [facility] Serum or plasma alkaline penelope sphatase measurementOrdered By: fili Wiggins on 06-06-2024 ALP [Catalytic activity/Vol] 68 U/L 45-117 [facility] Total proteinOrdered By: Sinan Wiggins on 06-06-2024 Protein [Mass/Vol] 7.5 g/dL 6.4-8.2 [facility] Wound Cultureon 06-05-2024 WC Normal [facility] Comment on above: Performed By: #### M 100.2000, M100.3000, M100.4001 ####[facility] [address] [place], [place], [address] MR/PAT.ANEon 06-04-2024 MR/PAT.ANE Normal [facility] CNPNon 05-30-2024 CNPN Normal [facility]tr History AND Physic ariella 05-29-2024 Wound Ctr History & Physical Normal [facility] Operative Reporton Operative Report Normal [facility] Wound Ctr History AND Physic ariella 05-17-2024 Wound Ctr History & Physical Normal [facility] Basic Metabolic Profile (BMP )on 05-14-2024 BUN Normal 7-18 [facility] Comment on above: Result Comment: Canc elled via OM: Order cancelled - Patient discharged Performed By: #### L 500.2500 ####[facility] [address] [place], [place], [id number] Result Comment: Solomon eason via OM: MD Ordered Performed By: #### L 100.0500, L500.2500 ####[facility] [address] [place], [address] BUN/CRE Normal 10-20 [facility] Comment on above: Result Comment: Canc elled via OM: Order cancelled - Patient discharged Performed By: #### L 500.2500 ####[facility] [address] [place], [address] Result Comment: Canc elled via OM: MD Ordered Performed By: #### L 100.0500, L500.2500 ####[facility] [address] [place], [address] CA,Total Normal 8.5-10.1 [facility] Comment on above: Result Comment: Canc elled via OM: Order cancelled - Patient discharged Performed By: #### L 500.2500 ####[facility] [address] [place], [address] Result Comment: Canc elled via OM: MD Ordered Performed By: #### L 100.0500, L500.2500 ####[facility] [address] [place], [address] CL Normal 98-107 [facility] Comment on above: Result Comment: Canc elled via OM: Order cancelled - Patient discharged Performed By: #### L 500.2500 ####[facility] [address] [place], [address] Result Comment: Canc elled via OM: MD Ordered Performed By: #### L 100.0500, L500.2500 ####[facility] [address] [place], [address] CO2 Normal 21.0-32.0 [facility] Comment on above: Result Comment: Canc elled via OM: Order cancelled - Patient discharged Performed By: #### L 500.2500 ####[facility] [address] [place], [address] Result Comment: Canc elled via OM: MD Ordered Performed By: #### L 100.0500, L500.2500 ####[facility] [address] [place], [address] CREAT,SERUM Normal 0.70-1.30 [facility] Comment on above: Result Comment: Canc elled via OM: Order cancelled - Patient discharged Performed By: #### L 500.2500 ####[facility] [address] [place], [address] Result Comment: Canc elled via OM: MD Ordered Performed By: #### L 100.0500, L500.2500 ####[facility] [address] [place], [address] EST GFR Normal >60 [facility] Comment on above: Result Comment: Canc elled via OM: Order cancelled - Patient discharged Performed By: #### L 500.2500 ####[facility] [address] [place], [address] Result Comment: Canc elled via OM: MD Ordered Performed By: #### L 100.0500, L500.2500 ####[facility] [address] [place], [address] EST GFR - AA Normal >60 [facility] Comment on above: Result Comment: Canc elled via OM: Order cancelled - Patient discharged Performed By: #### L 500.2500 ####[facility] [address] [place], [address] Result Comment: Canc elled via OM: MD Ordered Performed By: #### L 100.0500, L500.2500 ####[facility] [address] [place], [address] GAP Normal 5-15 [facility] Comment on above: Result Comment: Canc elled via OM: Order cancelled - Patient discharged Performed By: #### L 500.2500 ####[facility] [address] [place], [address] Result Comment: Canc elled via OM: MD Ordered Performed By: #### L 100.0500, L500.2500 ####[facility] [address] [place], [address] GLU Normal 74-106 [facility] Comment on above: Result Comment: Canc elled via OM: Order cancelled - Patient discharged Performed By: #### L 500.2500 ####[facility] [address] [place], [address] Result Comment: Canc elled via OM: MD Ordered Performed By: #### L 100.0500, L500.2500 ####[facility] [address] [place], [address] Potassium Normal 3.5-5.1 [facility] Comment on above: Result Comment: Canc elled via OM: Order cancelled - Patient discharged Performed By: #### L 500.2500 ####[facility] [address] [place], [address] Result Comment: Canc elled via OM: MD Ordered Performed By: #### L 100.0500, L500.2500 ####[facility] [address] [place], [address] Basic Metabolic Profile (BMP) Normal 136-145 [facility] Comment on above: Result Comment: Canc elled via OM: Order cancelled - Patient discharged Performed By: #### L 500.2500 ####[facility] [address] [place], [address] Result Comment: Canc elled via OM: MD Ordered Performed By: #### L 100.0500, L500.2500 ####[facility] [address] [place], [address] CBC-Complete Blood Cnt No Di ffon 05-14-2024 HCT Normal 40-54 [facility] Comment on above: Result Comment: Canc elled via OM: Order cancelled - Patient discharged Performed By: #### L 100.0500 ####[facility] [address] [place], [address] HGB Normal 13.0-16.5 [facility] Comment on above: Result Comment: Canc elled via OM: Order cancelled - Patient discharged Performed By: #### L 100.0500 ####[facility] [address] [place], [address] MCH Normal 27.0-32.0 [facility] Comment on above: Result Comment: Canc elled via OM: Order cancelled - Patient discharged Performed By: #### L 100.0500 ####[facility] [address] [place], [address] MCHC Normal 32-36 [facility] Comment on above: Result Comment: Canc elled via OM: Order cancelled - Patient discharged Performed By: #### L 100.0500 ####[facility] [address] [place], [address] MCV Normal 80-94 [facility] Comment on above: Result Comment: Canc elled via OM: Order cancelled - Patient discharged Performed By: #### L 100.0500 ####[facility] [address] [place], [address] PLT Normal 150-450 [facility] Comment on above: Result Comment: Canc elled via OM: Order cancelled - Patient discharged Performed By: #### L 100.0500 ####[facility] [address] [place], [address] RBC Normal 4.6-6.2 [facility] Comment on above: Result Comment: Canc elled via OM: Order cancelled - Patient discharged Performed By: #### L 100.0500 ####[facility] [address] [place], [address] RDW CV Normal 11.6-14.6 [facility] Comment on above: Result Comment: Canc elled via OM: Order cancelled - Patient discharged Performed By: #### L 100.0500 ####[facility] [address] [place], [address] RDW SD Normal 35.1-43.9 [facility] Comment on above: Result Comment: Canc elled via OM: Order cancelled - Patient discharged Performed By: #### L 100.0500 ####[facility] [address] [place], [address] WBC Normal 4.4-11.0 [facility] Comment on above: Result Comment: Canc elled via OM: Order cancelled - Patient discharged Performed By: #### L 100.0500 ####[facility] [address] [place], [address] HCT Normal 40-54 [facility] Comment on above: Result Comment: Canc elled via OM: MD Ordered Performed By: #### L 100.0500, L500.2500 ####[facility] [address] [place], [address] HGB Normal 13.0-16.5 [facility] Comment on above: Result Comment: Canc elled via OM: MD Ordered Performed By: #### L 100.0500, L500.2500 ####[facility] [address] [place], [address] MCH Normal 27.0-32.0 [facility] Comment on above: Result Comment: Canc elled via OM: MD Ordered Performed By: #### L 100.0500, L500.2500 ####[facility] [address] [place], [address] MCHC Normal 32-36 [facility] Comment on above: Result Comment: Canc elled via OM: MD Ordered Performed By: #### L 100.0500, L500.2500 ####[facility] [address] [place], [address] MCV Normal 80-94 [facility] Comment on above: Result Comment: Canc elled via OM: MD Ordered Performed By: #### L 100.0500, L500.2500 ####[facility] [address] [place], [address] PLT Normal 150-450 [facility] Comment on above: Result Comment: Canc elled via OM: MD Ordered Performed By: #### L 100.0500, L500.2500 ####[facility] [address] [place], [address] RBC Normal 4.6-6.2 [facility] Comment on above: Result Comment: Canc elled via OM: MD Ordered Performed By: #### L 100.0500, L500.2500 ####[facility] [address] [place], [address] RDW CV Normal 11.6-14.6 [facility] Comment on above: Result Comment: Canc elled via OM: MD Ordered Performed By: #### L 100.0500, L500.2500 ####[facility] [address] [place], [address] RDW SD Normal 35.1-43.9 [facility] Comment on above: Result Comment: Canc elled via OM: MD Ordered Performed By: #### L 100.0500, L500.2500 ####[facility] [address] [place], [address] WBC Normal 4.4-11.0 [facility] Comment on above: Result Comment: Canc elled via OM: MD Ordered Performed By: #### L 100.0500, L500.2500 ####[facility] [address] [place], [address] Basic Metabolic Profile (BMP )on 05-13-2024 BUN Normal 7-18 [facility] Comment on above: Result Comment: Canc elled via OM: MD Ordered Performed By: #### L 500.2500, L100.0500 ####[facility] [address] [place], [address] BUN/CRE Normal 10-20 [facility] Comment on above: Result Comment: Canc elled via OM: MD Ordered Performed By: #### L 500.2500, L100.0500 ####[facility] [address] [place], [address] CA,Total Normal 8.5-10.1 [facility] Comment on above: Result Comment: Canc elled via OM: MD Ordered Performed By: #### L 500.2500, L100.0500 ####[facility] [address] [place], [address] CL Normal 98-107 [facility] Comment on above: Result Comment: Canc elled via OM: MD Ordered Performed By: #### L 500.2500, L100.0500 ####[facility] [address] [place], [address] CO2 Normal 21.0-32.0 [facility] Comment on above: Result Comment: Canc elled via OM: MD Ordered Performed By: #### L 500.2500, L100.0500 ####[facility] [address] [place], [address] CREAT,SERUM Normal 0.70-1.30 [facility] Comment on above: Result Comment: Canc elled via OM: MD Ordered Performed By: #### L 500.2500, L100.0500 ####[facility] [address] [place], [address] EST GFR Normal >60 [facility] Comment on above: Result Comment: Canc elled via OM: MD Ordered Performed By: #### L 500.2500, L100.0500 ####[facility] [address] [place], [address] EST GFR - AA Normal >60 [facility] Comment on above: Result Comment: Canc elled via OM: MD Ordered Performed By: #### L 500.2500, L100.0500 ####[facility] [address] [place], [address] GAP Normal 5-15 [facility] Comment on above: Result Comment: Canc elled via OM: MD Ordered Performed By: #### L 500.2500, L100.0500 ####[facility] [address] [place], [address] GLU Normal 74-106 [facility] Comment on above: Result Comment: Canc elled via OM: MD Ordered Performed By: #### L 500.2500, L100.0500 ####[facility] [address] [place], [address] Potassium Normal 3.5-5.1 [facility] Comment on above: Result Comment: Canc elled via OM: MD Ordered Performed By: #### L 500.2500, L100.0500 ####[facility] [address] [place], [address] Basic Metabolic Profile (BMP) Normal 136-145 [facility] Comment on above: Result Comment: Canc elled via OM: MD Ordered Performed By: #### L 500.2500, L100.0500 ####[facility] [address] [place], [address] CBC-Complete Blood Cnt No Di ffon 05-13-2024 HCT Normal 40-54 [facility] Comment on above: Result Comment: Canc elled via OM: MD Ordered Performed By: #### L 500.2500, L100.0500 ####[facility] [address] [place], [address] HGB Normal 13.0-16.5 [facility] Comment on above: Result Comment: Canc elled via OM: MD Ordered Performed By: #### L 500.2500, L100.0500 ####[facility] [address] [place], [address] MCH Normal 27.0-32.0 [facility] Comment on above: Result Comment: Canc elled via OM: MD Ordered Performed By: #### L 500.2500, L100.0500 ####[facility] [address] [place], [address] MCHC Normal 32-36 [facility] Comment on above: Result Comment: Canc elled via OM: MD Ordered Performed By: #### L 500.2500, L100.0500 ####[facility] [address] [place], [address] MCV Normal 80-94 [facility] Comment on above: Result Comment: Canc elled via OM: MD Ordered Performed By: #### L 500.2500, L100.0500 ####[facility] [address] [place], [address] PLT Normal 150-450 [facility] Comment on above: Result Comment: Canc elled via OM: MD Ordered Performed By: #### L 500.2500, L100.0500 ####[facility] [address] [place], [address] RBC Normal 4.6-6.2 [facility] Comment on above: Result Comment: Canc elled via OM: MD Ordered Performed By: #### L 500.2500, L100.0500 ####[facility] [address] [place], [address] RDW CV Normal 11.6-14.6 [facility] Comment on above: Result Comment: Canc elled via OM: MD Ordered Performed By: #### L 500.2500, L100.0500 ####[facility] [address] [place], [address] RDW SD Normal 35.1-43.9 [facility] Comment on above: Result Comment: Canc elled via OM: MD Ordered Performed By: #### L 500.2500, L100.0500 ####[facility] [address] [place], [address] WBC Normal 4.4-11.0 [facility] Comment on above: Result Comment: Canc elled via OM: MD Ordered Performed By: #### L 500.2500, L100.0500 ####[facility] [address] [place], [address] Basic Metabolic Profile (BMP )on 05-12-2024 BUN Normal 7-18 [facility] Comment on above: Result Comment: Canc elled via OM: Order cancelled - Patient discharged Performed By: #### L 500.2500 ####[facility] [address] [place], [address] Result Comment: Canc elled via OM: MD Ordered Performed By: #### L 100.0500, L500.2500 ####[facility] [address] [place], [address] BUN/CRE Normal 10-20 [facility] Comment on above: Result Comment: Canc elled via OM: Order cancelled - Patient discharged Performed By: #### L 500.2500 ####[facility] [address] [place], [address] Result Comment: Canc elled via OM: MD Ordered Performed By: #### L 100.0500, L500.2500 ####[facility] [address] [place], [address] CA,Total Normal 8.5-10.1 [facility] Comment on above: Result Comment: Canc elled via OM: Order cancelled - Patient discharged Performed By: #### L 500.2500 ####[facility] [address] [place], [address] Result Comment: Canc elled via OM: MD Ordered Performed By: #### L 100.0500, L500.2500 ####[facility] [address] [place], [address] CL Normal 98-107 [facility] Comment on above: Result Comment: Canc elled via OM: Order cancelled - Patient discharged Performed By: #### L 500.2500 ####[facility] [address] [place], [address] Result Comment: Canc elled via OM: MD Ordered Performed By: #### L 100.0500, L500.2500 ####[facility] [address] [place], [address] CO2 Normal 21.0-32.0 [facility] Comment on above: Result Comment: Canc elled via OM: Order cancelled - Patient discharged Performed By: #### L 500.2500 ####[facility] [address] [place], [address] Result Comment: Canc elled via OM: MD Ordered Performed By: #### L 100.0500, L500.2500 ####[facility] [address] [place], [address] CREAT,SERUM Normal 0.70-1.30 [facility] Comment on above: Result Comment: Canc elled via OM: Order cancelled - Patient discharged Performed By: #### L 500.2500 ####[facility] [address] [place], [address] Result Comment: Canc elled via OM: MD Ordered Performed By: #### L 100.0500, L500.2500 ####[facility] [address] [place], [address] EST GFR Normal >60 [facility] Comment on above: Result Comment: Canc elled via OM: Order cancelled - Patient discharged Performed By: #### L 500.2500 ####[facility] [address] [place], [address] Result Comment: Canc elled via OM: MD Ordered Performed By: #### L 100.0500, L500.2500 ####[facility] [address] [place], [address] EST GFR - AA Normal >60 [facility] Comment on above: Result Comment: Canc elled via OM: Order cancelled - Patient discharged Performed By: #### L 500.2500 ####[facility] [address] [place], [address] Result Comment: Canc elled via OM: MD Ordered Performed By: #### L 100.0500, L500.2500 ####[facility] [address] [place], [address] GAP Normal 5-15 [facility] Comment on above: Result Comment: Canc elled via OM: Order cancelled - Patient discharged Performed By: #### L 500.2500 ####[facility] [address] [place], [address] Result Comment: Canc elled via OM: MD Ordered Performed By: #### L 100.0500, L500.2500 ####[facility] [address] [place], [address] GLU Normal 74-106 [facility] Comment on above: Result Comment: Canc elled via OM: Order cancelled - Patient discharged Performed By: #### L 500.2500 ####[facility] [address] [place], [address] Result Comment: Canc elled via OM: MD Ordered Performed By: #### L 100.0500, L500.2500 ####[facility] [address] [place], [address] Potassium Normal 3.5-5.1 [facility] Comment on above: Result Comment: Canc elled via OM: Order cancelled - Patient discharged Performed By: #### L 500.2500 ####[facility] [address] [place], [address] Result Comment: Canc elled via OM: MD Ordered Performed By: #### L 100.0500, L500.2500 ####[facility] [address] [place], [address] Basic Metabolic Profile (BMP) Normal 136-145 [facility] Comment on above: Result Comment: Canc elled via OM: Order cancelled - Patient discharged Performed By: #### L 500.2500 ####[facility] [address] [place], [address] Result Comment: Canc elled via OM: MD Ordered Performed By: #### L 100.0500, L500.2500 ####[facility] [address] [place], [address] CBC-Complete Blood Cnt No Di ffon 05-12-2024 HCT Normal 40-54 [facility] Comment on above: Result Comment: Canc elled via OM: Order cancelled - Patient discharged Performed By: #### L 100.0500 ####[facility] [address] [place], [address] HGB Normal 13.0-16.5 [facility] Comment on above: Result Comment: Canc elled via OM: Order cancelled - Patient discharged Performed By: #### L 100.0500 ####[facility] [address] [place], [address] MCH Normal 27.0-32.0 [facility] Comment on above: Result Comment: Canc elled via OM: Order cancelled - Patient discharged Performed By: #### L 100.0500 ####[facility] [address] [place], [address] MCHC Normal 32-36 [facility] Comment on above: Result Comment: Canc elled via OM: Order cancelled - Patient discharged Performed By: #### L 100.0500 ####[facility] [address] [place], [address] MCV Normal 80-94 [facility] Comment on above: Result Comment: Canc elled via OM: Order cancelled - Patient discharged Performed By: #### L 100.0500 ####[facility] [address] [place], [address] PLT Normal 150-450 [facility] Comment on above: Result Comment: Canc elled via OM: Order cancelled - Patient discharged Performed By: #### L 100.0500 ####[facility] [address] [place], [address] RBC Normal 4.6-6.2 [facility] Comment on above: Result Comment: Canc elled via OM: Order cancelled - Patient discharged Performed By: #### L 100.0500 ####[facility] [address] [place], [address] RDW CV Normal 11.6-14.6 [facility] Comment on above: Result Comment: Canc elled via OM: Order cancelled - Patient discharged Performed By: #### L 100.0500 ####[facility] [address] [place], [address] RDW SD Normal 35.1-43.9 [facility] Comment on above: Result Comment: Canc elled via OM: Order cancelled - Patient discharged Performed By: #### L 100.0500 ####[facility] [address] [place], [address] WBC Normal 4.4-11.0 [facility] Comment on above: Result Comment: Canc elled via OM: Order cancelled - Patient discharged Performed By: #### L 100.0500 ####[facility] [address] [place], [address] HCT Normal 40-54 [facility] Comment on above: Result Comment: Canc elled via OM: MD Ordered Performed By: #### L 100.0500, L500.2500 ####[facility] [address] [place], [address] HGB Normal 13.0-16.5 [facility] Comment on above: Result Comment: Canc elled via OM: MD Ordered Performed By: #### L 100.0500, L500.2500 ####[facility] [address] [place], [address] MCH Normal 27.0-32.0 [facility] Comment on above: Result Comment: Canc elled via OM: MD Ordered Performed By: #### L 100.0500, L500.2500 ####[facility] [address] [place], [address] MCHC Normal 32-36 [facility] Comment on above: Result Comment: Canc elled via OM: MD Ordered Performed By: #### L 100.0500, L500.2500 ####[facility] [address] [place], [address] MCV Normal 80-94 [facility] Comment on above: Result Comment: Canc elled via OM: MD Ordered Performed By: #### L 100.0500, L500.2500 ####[facility] [address] [place], [address] PLT Normal 150-450 [facility] Comment on above: Result Comment: Canc elled via OM: MD Ordered Performed By: #### L 100.0500, L500.2500 ####[facility] [address] [place], [address] RBC Normal 4.6-6.2 [facility] Comment on above: Result Comment: Canc elled via OM: MD Ordered Performed By: #### L 100.0500, L500.2500 ####[facility] [address] [place], [address] RDW CV Normal 11.6-14.6 [facility] Comment on above: Result Comment: Canc elled via OM: MD Ordered Performed By: #### L 100.0500, L500.2500 ####[facility] [address] [place], [address] RDW SD Normal 35.1-43.9 [facility] Comment on above: Result Comment: Canc elled via OM: MD Ordered Performed By: #### L 100.0500, L500.2500 ####[facility] [address] [place], [address] WBC Normal 4.4-11.0 [facility] Comment on above: Result Comment: Canc elled via OM: MD Ordered Performed By: #### L 100.0500, L500.2500 ####[facility] [address] [place], [address] Basic Metabolic Profile (BMP )on 05-11-2024 BUN Normal - [facility] Comment on above: Result Comment: Canc elled via OM: MD Ordered Performed By: #### L 500.2500, L100.0500 ####[facility] [address] [place], [address] BUN/CRE Normal - [facility] Comment on above: Result Comment: Canc elled via OM: MD Ordered Performed By: #### L 500.2500, L100.0500 ####[facility] [address] [place], [address] CA,Total Normal 8.5-10.1 [facility] Comment on above: Result Comment: Canc elled via OM: MD Ordered Performed By: #### L 500.2500, L100.0500 ####[facility] [address] [place], [address] CL Normal 98-107 [facility] Comment on above: Result Comment: Canc elled via OM: MD Ordered Performed By: #### L 500.2500, L100.0500 ####[facility] [address] [place], [address] CO2 Normal 21.0-32.0 [facility] Comment on above: Result Comment: Canc elled via OM: MD Ordered Performed By: #### L 500.2500, L100.0500 ####[facility] [address] [place], [address] CREAT,SERUM Normal 0.70-1.30 [facility] Comment on above: Result Comment: Canc elled via OM: MD Ordered Performed By: #### L 500.2500, L100.0500 ####[facility] [address] [place], [address] EST GFR Normal >60 [facility] Comment on above: Result Comment: Canc elled via OM: MD Ordered Performed By: #### L 500.2500, L100.0500 ####[facility] [address] [place], [address] EST GFR - AA Normal >60 [facility] Comment on above: Result Comment: Canc elled via OM: MD Ordered Performed By: #### L 500.2500, L100.0500 ####[facility] [address] [place], [address] GAP Normal 5-15 [facility] Comment on above: Result Comment: Canc elled via OM: MD Ordered Performed By: #### L 500.2500, L100.0500 ####[facility] [address] [place], [address] GLU Normal 74-106 [facility] Comment on above: Result Comment: Canc elled via OM: MD Ordered Performed By: #### L 500.2500, L100.0500 ####[facility] [address] [place], [address] Potassium Normal 3.5-5.1 [facility] Comment on above: Result Comment: Canc elled via OM: MD Ordered Performed By: #### L 500.2500, L100.0500 ####[facility] [address] [place], [address] Basic Metabolic Profile (BMP) Normal 136-145 [facility] Comment on above: Result Comment: Canc elled via OM: MD Ordered Performed By: #### L 500.2500, L100.0500 ####[facility] [address] [place], [address] CBC-Complete Blood Cnt No Di ffon 05-11-2024 HCT Normal 40-54 [facility] Comment on above: Result Comment: Canc elled via OM: MD Ordered Performed By: #### L 500.2500, L100.0500 ####[facility] [address] [place], [address] HGB Normal 13.0-16.5 [facility] Comment on above: Result Comment: Canc elled via OM: MD Ordered Performed By: #### L 500.2500, L100.0500 ####[facility] [address] [place], [address] MCH Normal 27.0-32.0 [facility] Comment on above: Result Comment: Canc elled via OM: MD Ordered Performed By: #### L 500.2500, L100.0500 ####[facility] [address] [place], [address] MCHC Normal 32-36 [facility] Comment on above: Result Comment: Canc elled via OM: MD Ordered Performed By: #### L 500.2500, L100.0500 ####[facility] [address] [place], [address] MCV Normal 80-94 [facility] Comment on above: Result Comment: Canc elled via OM: MD Ordered Performed By: #### L 500.2500, L100.0500 ####[facility] [address] [place], [address] PLT Normal 150-450 [facility] Comment on above: Result Comment: Canc elled via OM: MD Ordered Performed By: #### L 500.2500, L100.0500 ####[facility] [address] [place], [address] RBC Normal 4.6-6.2 [facility] Comment on above: Result Comment: Canc elled via OM: MD Ordered Performed By: #### L 500.2500, L100.0500 ####[facility] [address] [place], [address] RDW CV Normal 11.6-14.6 [facility] Comment on above: Result Comment: Canc elled via OM: MD Ordered Performed By: #### L 500.2500, L100.0500 ####[facility] [address] [place], [address] RDW SD Normal 35.1-43.9 [facility] Comment on above: Result Comment: Canc elled via OM: MD Ordered Performed By: #### L 500.2500, L100.0500 ####[facility] [address] [place], [address] WBC Normal 4.4-11.0 [facility] Comment on above: Result Comment: Canc elled via OM: MD Ordered Performed By: #### L 500.2500, L100.0500 ####[facility] [address] [place], [address] Basic Metabolic Profile (BMP )on 05-10-2024 BUN/CRE 9.4 RATIO Low 10-20 [facility] Comment on above: Performed By: #### L 500.2500, L100.0500 ####[facility] [address] [place], [address] CA,Total 8.8 mg/dL Normal 8.5-10.1 [facility] Comment on above: Performed By: #### L 500.2500, L100.0500 ####[facility] [address] [place], [address] Chloride [Moles/Vol] 102 mmol/L Normal 98-107 [facility] Comment on above: Performed By: #### L 500.2500, L100.0500 ####[facility] [address] [place], [address] CO2 [Moles/Vol] 25.0 mmol/L Normal 21.0-32.0 [facility] Comment on above: Performed By: #### L 500.2500, L100.0500 ####[facility] [address] [place], [address] Creatinine [Mass/Vol] 5.98 mg/dL High 0.70-1.30 [facility] [place] Comment on above: Result Comment: The validity of the calculated GFR GFRAA in patients over70 years has not been determined. Clinical correlation isessential. Performed By: #### L 500.2500, L100.0500 ####[facility] [address] [place], [address] ECRCL 9.33 ml/min Normal [facility] Comment on above: Performed By: #### L 500.2500, L100.0500 ####[facility] [address] [place], [address] EST GFR - AA 12 mL/min Low >60 [facility] Comment on above: Result Comment: Afri can [place] GFR Calc Performed By: #### L 500.2500, L100.0500 ####[facility] [address] [place], [address] GAP 8 Normal 5-15 [facility] Comment on above: Performed By: #### L 500.2500, L100.0500 ####[facility] [address] [place], [address] GFR/1.73 sq M.predicted among non-blacks MDRD (S/P/Bld) [Vol rate/Area] 10 mL/min/{1.73_m2} Low >60 [facility] Comment on above: Result Comment: Non- GFR Calc Performed By: #### L 500.2500, L100.0500 ####[facility] [address] [place], [address] Glucose [Mass/Vol] 141 mg/dL High 74-106 [facility] Comment on above: Result Comment: Fast ing Glucose result greater than or equal to 126 mg/dLsuggests DIABETES MELLITUS per A.D.A. criteria. Performed By: #### L 500.2500, L100.0500 ####[facility] [address] [place], [address] Potassium [Moles/Vol] 4.2 mmol/L Normal 3.5-5.1 [facility] [place] Comment on above: Performed By: #### L 500.2500, L100.0500 ####[facility] [address] [place], [address] Sodium [Moles/Vol] 135 mmol/L Low 136-145 [facility] Comment on above: Performed By: #### L 500.2500, L100.0500 ####[facility] [address] [place], [address] Urea nitrogen [Mass/Vol] 56 mg/dL High 7-18 [facility] Comment on above: Performed By: #### L 500.2500, L100.0500 ####[facility] [address] [place], [address] Bedside Glucoseon 05-10-2024 FINGERSTICK GLU 188 mg/dL High 74-106 [facility] Comment on above: Result Comment: FANG GEMENT OF PATIENT CARE PER NURSING PROTOCOL Performed By: #### L 501.080 ####[facility] [address] [place], [address] FINGERSTICK GLU 165 mg/dL High 74-106 [facility] Comment on above: Result Comment: FANG GEMENT OF PATIENT CARE PER NURSING PROTOCOL Performed By: #### L 501.080 ####[facility] [address] [place], [address] FINGERSTICK GLU 115 mg/dL High 74-106 [facility] Comment on above: Result Comment: FANG GEMENT OF PATIENT CARE PER NURSING PROTOCOL Performed By: #### L 501.080 ####[facility] [address] [place], [address] CBC-Complete Blood Cnt No Di ffon 05-10-2024 Erythrocyte distribution width (RBC) [Ratio] 15.0 % High 11.6-14.6 [facility] Comment on above: Performed By: #### L 500.2500, L100.0500 ####[facility] [address] [place], [address] Hematocrit (Bld) [Volume fraction] 29.9 % Low 40-54 [facility] Comment on above: Performed By: #### L 500.2500, L100.0500 ####[facility] [address] [place], [address] Hemoglobin (Bld) [Mass/Vol] 9.2 g/dL Low 13.0-16.5 [facility] Comment on above: Performed By: #### L 500.2500, L100.0500 ####[facility] [address] [place], [address] MCH (RBC) [Entitic mass] 29.3 pg Normal 27.0-32.0 [facility] Comment on above: Performed By: #### L 500.2500, L100.0500 ####[facility] [address] [place], [address] MCHC (RBC) [Mass/Vol] 30.8 g/dL Low 32-36 [facility] [place] Comment on above: Performed By: #### L 500.2500, L100.0500 ####[facility] [address] [place], [address] MCV (RBC) [Entitic vol] 95.2 fL High 80-94 [facility] Comment on above: Performed By: #### L 500.2500, L100.0500 ####[facility] [address] [place], [address] Platelet mean volume (Bld) [Entitic vol] 10.5 fL Normal 6.2-12.0 [facility] Comment on above: Performed By: #### L 500.2500, L100.0500 ####[facility] [address] [place], [address] Platelets (Bld) [#/Vol] 205 10*3/uL Normal 150-450 [facility] Comment on above: Performed By: #### L 500.2500, L100.0500 ####[facility] [address] [place], [address] RBC (Bld) [#/Vol] 3.14 10*6/uL Low 4.6-6.2 [facility] Comment on above: Performed By: #### L 500.2500, L100.0500 ####[facility] [address] [place], [address] RDW SD 51.8 fl High 35.1-43.9 [facility] Comment on above: Performed By: #### L 500.2500, L100.0500 ####[facility] [address] [place], [address] WBC (Bld) [#/Vol] 8.2 10*3/uL Normal 4.4-11.0 [facility] Comment on above: Performed By: #### L 500.2500, L100.0500 ####[facility] [address] [place], [address] Culture, Anaerobic Any Sourc reed 05-10-2024 CUAN COLLECTED IN OR RIGH T HALLUX AND 1ST METATARSAL No anaerobic bacteria isolated. Normal [facility] Comment on above: Performed By: #### M 100.2000, M100.3000, M100.4001 ####[facility] [address] [place], [address] Vancomycin, Random Levelon 1 07-11-2023 VANCO, RANDOM 21.6 ug/mL High 0.0-15.0 [facility] Comment on above: Order Comment: Comme nts: PLEASE DRAW PRE-DIALYSIS Result Comment: VANC OMYCIN STANDARD DRUG THERAPY: CRITICAL VALUE IS > 15.0 mg/LVANCOMYCIN HIGH INTENSITY THERAPY: CRITICAL VALUE IS > 20.0 mg/LPLEASE CONTACT PHARMACY SERVICES (#[id number]) FOR INTERPRETATIONOF RESULTS. THIS RESULT DOES NOT REPRESENT A PEAK OR TROUGHLEVEL FOR THIS DRUG. Performed By: #### L 501.8850 ####[facility] [address] [place], [address] Basic Metabolic Profile (BMP )on 05-09-2024 BUN/CRE 9.9 RATIO Low 10-20 [facility] Comment on above: Performed By: #### L 100.0500, L500.2500 ####[facility] [address] [place], [address] CA,Total 8.8 mg/dL Normal 8.5-10.1 [facility] Comment on above: Performed By: #### L 100.0500, L500.2500 ####[facility] [address] [place], [address] Chloride [Moles/Vol] 102 mmol/L Normal 98-107 [facility] Comment on above: Performed By: #### L 100.0500, L500.2500 ####[facility] [address] [place], [address] CO2 [Moles/Vol] 27.0 mmol/L Normal 21.0-32.0 [facility] Comment on above: Performed By: #### L 100.0500, L500.2500 ####[facility] [address] [place], [address] Creatinine [Mass/Vol] 4.74 mg/dL High 0.70-1.30 [facility] Comment on above: Result Comment: The validity of the calculated GFR GFRAA in patients over70 years has not been determined. Clinical correlation isessential. Performed By: #### L 100.0500, L500.2500 ####[facility] [address] [place], [address] ECRCL 11.77 ml/min Normal [facility] Comment on above: Performed By: #### L 100.0500, L500.2500 ####[facility] [address] [place], [address] EST GFR - AA 15 mL/min Low >60 [facility] Comment on above: Result Comment: Afri can [place] GFR Calc Performed By: #### L 100.0500, L500.2500 ####[facility] [address] [place], [place], [address] GAP 6 Normal 5-15 [facility] Comment on above: Performed By: #### L 100.0500, L500.2500 ####[facility] [address] [place], [address] GFR/1.73 sq M.predicted among non-blacks MDRD (S/P/Bld) [Vol rate/Area] 13 mL/min/{1.73_m2} Low >60 [facility] Comment on above: Result Comment: Non- GFR Calc Performed By: #### L 100.0500, L500.2500 ####[facility] [address] [place], [address] Glucose [Mass/Vol] 105 mg/dL Normal 74-106 [facility] Comment on above: Result Comment: Fast ing Glucose result from 100 to 125 mg/dLsuggests IMPAIRED HOMEOSTASIS per A.D.A. criteria. Performed By: #### L 100.0500, L500.2500 ####[facility] [address] [place], [address] Potassium [Moles/Vol] 4.2 mmol/L Normal 3.5-5.1 [facility] [place] Comment on above: Performed By: #### L 100.0500, L500.2500 ####[facility] [address] [place], [address] Sodium [Moles/Vol] 135 mmol/L Low 136-145 [facility] Comment on above: Performed By: #### L 100.0500, L500.2500 ####[facility] [address] [place], [address] Urea nitrogen [Mass/Vol] 47 mg/dL High 7-18 [facility] Comment on above: Performed By: #### L 100.0500, L500.2500 ####[facility] [address] [place], [address] Bedside Glucoseon 05-09-2024 FINGERSTICK GLU 176 mg/dL High 74-106 [facility] Comment on above: Result Comment: FANG GEMENT OF PATIENT CARE PER NURSING PROTOCOL Performed By: #### L 501.080 ####[facility] [address] [place], [address] FINGERSTICK GLU 264 mg/dL High 74-106 [facility] Comment on above: Result Comment: FANG GEMENT OF PATIENT CARE PER NURSING PROTOCOL Performed By: #### L 501.080 ####[facility] [address] [place], [address] FINGERSTICK GLU 90 mg/dL Normal 74-106 [facility] Comment on above: Result Comment: FANG GEMENT OF PATIENT CARE PER NURSING PROTOCOL Performed By: #### L 501.080 ####[facility] [address] [place], [address] CBC-Complete Blood Cnt No Di ffon 05-09-2024 Erythrocyte distribution width (RBC) [Ratio] 15.1 % High 11.6-14.6 [facility] Comment on above: Performed By: #### L 100.0500, L500.2500 ####[facility] [address] [place], [address] Hematocrit (Bld) [Volume fraction] 29.4 % Low 40-54 [facility] Comment on above: Performed By: #### L 100.0500, L500.2500 ####[facility] [address] [place], [address] Hemoglobin (Bld) [Mass/Vol] 8.7 g/dL Low 13.0-16.5 [facility] Comment on above: Performed By: #### L 100.0500, L500.2500 ####[facility] [address] [place], [address] MCH (RBC) [Entitic mass] 28.5 pg Normal 27.0-32.0 [facility] Comment on above: Performed By: #### L 100.0500, L500.2500 ####[facility] [address] [place], [address] MCHC (RBC) [Mass/Vol] 29.6 g/dL Low 32-36 [facility] [place] Comment on above: Performed By: #### L 100.0500, L500.2500 ####[facility] [address] [place], [address] MCV (RBC) [Entitic vol] 96.4 fL High 80-94 [facility] Comment on above: Performed By: #### L 100.0500, L500.2500 ####[facility] [address] [place], [address] Platelet mean volume (Bld) [Entitic vol] 11.5 fL Normal 6.2-12.0 [facility] Comment on above: Performed By: #### L 100.0500, L500.2500 ####[facility] [address] [place], [address] Platelets (Bld) [#/Vol] 206 10*3/uL Normal 150-450 [facility] Comment on above: Performed By: #### L 100.0500, L500.2500 ####[facility] [address] [place], [address] RBC (Bld) [#/Vol] 3.05 10*6/uL Low 4.6-6.2 [facility] Comment on above: Performed By: #### L 100.0500, L500.2500 ####[facility] [address] [place], [address] RDW SD 53.7 fl High 35.1-43.9 [facility] Comment on above: Performed By: #### L 100.0500, L500.2500 ####[facility] [address] [place], [address] WBC (Bld) [#/Vol] 10.1 10*3/uL Normal 4.4-11.0 [facility] Comment on above: Performed By: #### L 100.0500, L500.2500 ####[facility] [address] [place], [address] Basic Metabolic Profile (BMP )on 05-08-2024 BUN/CRE 12.0 RATIO Normal 10-20 [facility] Comment on above: Performed By: #### L 500.2500, L100.0500 ####[facility] [address] [place], [address] CA,Total 8.5 mg/dL Normal 8.5-10.1 [facility] Comment on above: Performed By: #### L 500.2500, L100.0500 ####[facility] [address] [place], [address] Chloride [Moles/Vol] 99 mmol/L Normal 98-107 [facility] Comment on above: Performed By: #### L 500.2500, L100.0500 ####[facility] [address] [place], [address] CO2 [Moles/Vol] 27.0 mmol/L Normal 21.0-32.0 [facility] Comment on above: Performed By: #### L 500.2500, L100.0500 ####[facility] [address] [place], [address] Creatinine [Mass/Vol] 6.26 mg/dL High 0.70-1.30 [facility] [place] Comment on above: Result Comment: The validity of the calculated GFR GFRAA in patients over70 years has not been determined. Clinical correlation isessential. Performed By: #### L 500.2500, L100.0500 ####[facility] [address] [place], [address] ECRCL 9.02 ml/min Normal [facility] Comment on above: Performed By: #### L 500.2500, L100.0500 ####[facility] [address] [place], [address] EST GFR - AA 11 mL/min Low >60 [facility] Comment on above: Result Comment: Afri can [place] GFR Calc Performed By: #### L 500.2500, L100.0500 ####[facility] [address] [place], [address] GAP 7 Normal 5-15 [facility] Comment on above: Performed By: #### L 500.2500, L100.0500 ####[facility] [address] [place], [address] GFR/1.73 sq M.predicted among non-blacks MDRD (S/P/Bld) [Vol rate/Area] 9 mL/min/{1.73_m2} Low >60 [facility] Comment on above: Result Comment: Non- GFR Calc Performed By: #### L 500.2500, L100.0500 ####[facility] [address] [place], [address] Glucose [Mass/Vol] 198 mg/dL High 74-106 [facility] Comment on above: Result Comment: Fast ing Glucose result greater than or equal to 126 mg/dLsuggests DIABETES MELLITUS per A.D.A. criteria. Performed By: #### L 500.2500, L100.0500 ####[facility] [address] [place], [address] Potassium [Moles/Vol] 4.9 mmol/L Normal 3.5-5.1 [facility] [place] Comment on above: Performed By: #### L 500.2500, L100.0500 ####[facility] [address] [place], [address] Sodium [Moles/Vol] 133 mmol/L Low 136-145 [facility] Comment on above: Performed By: #### L 500.2500, L100.0500 ####[facility] [address] [place], [address] Urea nitrogen [Mass/Vol] 75 mg/dL High 7-18 [facility] Comment on above: Performed By: #### L 500.2500, L100.0500 ####[facility] [address] [place], [address] Bedside Glucoseon 05-08-2024 FINGERSTICK GLU 154 mg/dL High 74-106 [facility] Comment on above: Result Comment: FANG GEMENT OF PATIENT CARE PER NURSING PROTOCOL Performed By: #### L 501.080 ####[facility] [address] [place], [address] FINGERSTICK GLU 212 mg/dL High 74-106 [facility] Comment on above: Result Comment: FANG GEMENT OF PATIENT CARE PER NURSING PROTOCOL Performed By: #### L 501.080 ####[facility] [address] [place], [address] FINGERSTICK GLU 194 mg/dL High 74-106 [facility] Comment on above: Result Comment: FANG GEMENT OF PATIENT CARE PER NURSING PROTOCOL Performed By: #### L 501.080 ####[facility] [address] [place], [address] CBC-Complete Blood Cnt No Di ffon 05-08-2024 Erythrocyte distribution width (RBC) [Ratio] 14.9 % High 11.6-14.6 [facility] Comment on above: Performed By: #### L 500.2500, L100.0500 ####[facility] [address] [place], [address] Hematocrit (Bld) [Volume fraction] 29.5 % Low 40-54 [facility] Comment on above: Performed By: #### L 500.2500, L100.0500 ####[facility] [address] [place], [address] Hemoglobin (Bld) [Mass/Vol] 8.8 g/dL Low 13.0-16.5 [facility] Comment on above: Performed By: #### L 500.2500, L100.0500 ####[facility] [address] [place], [address] MCH (RBC) [Entitic mass] 28.9 pg Normal 27.0-32.0 [facility] Comment on above: Performed By: #### L 500.2500, L100.0500 ####[facility] [address] [place], [address] MCHC (RBC) [Mass/Vol] 29.8 g/dL Low 32-36 [facility] [place] Comment on above: Performed By: #### L 500.2500, L100.0500 ####[facility] [address] [place], [address] MCV (RBC) [Entitic vol] 97.0 fL High 80-94 [facility] Comment on above: Performed By: #### L 500.2500, L100.0500 ####[facility] [address] [place], [address] Platelet mean volume (Bld) [Entitic vol] 11.3 fL Normal 6.2-12.0 [facility] Comment on above: Performed By: #### L 500.2500, L100.0500 ####[facility] [address] [place], [address] Platelets (Bld) [#/Vol] 210 10*3/uL Normal 150-450 [facility] Comment on above: Performed By: #### L 500.2500, L100.0500 ####[facility] [address] [place], [address] RBC (Bld) [#/Vol] 3.04 10*6/uL Low 4.6-6.2 [facility] Comment on above: Performed By: #### L 500.2500, L100.0500 ####[facility] [address] [place], [address] RDW SD 52.8 fl High 35.1-43.9 [facility] Comment on above: Performed By: #### L 500.2500, L100.0500 ####[facility] [address] [place], [address] WBC (Bld) [#/Vol] 9.7 10*3/uL Normal 4.4-11.0 [facility] Comment on above: Performed By: #### L 500.2500, L100.0500 ####[facility] [address] [place], [address] Consultation - Infectious Dx on 05-08-2024 Consultation - Infectious Dx Normal [facility] Gram Stainon 05-08-2024 GS COLLECTED IN OR RIGH T HALLUX AND 1ST METATARSAL Gram Stain Rare White Blood Cells Rare Gram positive cocci No Epithelial cells Normal [facility] Comment on above: Performed By: #### M 100.2000, M100.3000, M100.4001 ####[facility] [address] [place], [address] Basic Metabolic Profile (BMP )on 05-07-2024 BUN/CRE 12.3 RATIO Normal 10-20 [facility] Comment on above: Performed By: #### L 500.2500, L100.0500 ####[facility] [address] [place], [address] CA,Total 8.7 mg/dL Normal 8.5-10.1 [facility] Comment on above: Performed By: #### L 500.2500, L100.0500 ####[facility] [address] [place], [address] Chloride [Moles/Vol] 100 mmol/L Normal 98-107 [facility] Comment on above: Performed By: #### L 500.2500, L100.0500 ####[facility] [address] [place], [address] CO2 [Moles/Vol] 28.0 mmol/L Normal 21.0-32.0 [facility] Comment on above: Performed By: #### L 500.2500, L100.0500 ####[facility] [address] [place], [address] Creatinine [Mass/Vol] 5.45 mg/dL High 0.70-1.30 [facility] [place] Comment on above: Result Comment: The validity of the calculated GFR GFRAA in patients over70 years has not been determined. Clinical correlation isessential. Performed By: #### L 500.2500, L100.0500 ####[facility] [address] [place], [address] ECRCL 10.36 ml/min Normal [facility] Comment on above: Performed By: #### L 500.2500, L100.0500 ####[facility] [address] [place], [address] EST GFR - AA 13 mL/min Low >60 [facility] Comment on above: Result Comment: Afri can [place] GFR Calc Performed By: #### L 500.2500, L100.0500 ####[facility] [address] [place], [address] GAP 6 Normal 5-15 [facility] Comment on above: Performed By: #### L 500.2500, L100.0500 ####[facility] [address] [place], [address] GFR/1.73 sq M.predicted among non-blacks MDRD (S/P/Bld) [Vol rate/Area] 11 mL/min/{1.73_m2} Low >60 [facility] Comment on above: Result Comment: Non- GFR Calc Performed By: #### L 500.2500, L100.0500 ####[facility] [address] [place], [address] Glucose [Mass/Vol] 131 mg/dL High 74-106 [facility] Comment on above: Result Comment: Fast ing Glucose result greater than or equal to 126 mg/dLsuggests DIABETES MELLITUS per A.D.A. criteria. Performed By: #### L 500.2500, L100.0500 ####[facility] [address] [place], [address] Potassium [Moles/Vol] 4.6 mmol/L Normal 3.5-5.1 [facility] [place] Comment on above: Performed By: #### L 500.2500, L100.0500 ####[facility] [address] [place], [address] Sodium [Moles/Vol] 134 mmol/L Low 136-145 [facility] Comment on above: Performed By: #### L 500.2500, L100.0500 ####[facility] [address] [place], [address] Urea nitrogen [Mass/Vol] 67 mg/dL High 7-18 [facility] Comment on above: Performed By: #### L 500.2500, L100.0500 ####[facility] [address] [place], [address] Bedside Glucoseon 05-07-2024 FINGERSTICK GLU 148 mg/dL High 74-106 [facility] Comment on above: Result Comment: FANG GEMENT OF PATIENT CARE PER NURSING PROTOCOL Performed By: #### L 501.080 ####[facility] [address] [place], [address] FINGERSTICK GLU 102 mg/dL Normal 74-106 [facility] Comment on above: Result Comment: FANG GEMENT OF PATIENT CARE PER NURSING PROTOCOL Performed By: #### L 501.080 ####[facility] [address] [place], [address] FINGERSTICK GLU 120 mg/dL High 74-106 [facility] Comment on above: Result Comment: FANG VAZQUEZ OF PATIENT CARE PER NURSING PROTOCOL Performed By: #### L 501.080 ####[facility] [address] [place], [address] CBC-Complete Blood Cnt No Di ffon 05-07-2024 Erythrocyte distribution width (RBC) [Ratio] 15.0 % High 11.6-14.6 [facility] Comment on above: Performed By: #### L 500.2500, L100.0500 ####[facility] [address] [place], [address] Hematocrit (Bld) [Volume fraction] 29.8 % Low 40-54 [facility] Comment on above: Performed By: #### L 500.2500, L100.0500 ####[facility] [address] [place], [address] Hemoglobin (Bld) [Mass/Vol] 9.1 g/dL Low 13.0-16.5 [facility] Comment on above: Performed By: #### L 500.2500, L100.0500 ####[facility] [address] [place], [address] MCH (RBC) [Entitic mass] 29.6 pg Normal 27.0-32.0 [facility] Comment on above: Performed By: #### L 500.2500, L100.0500 ####[facility] [address] [place], [address] MCHC (RBC) [Mass/Vol] 30.5 g/dL Low 32-36 [facility] [place] Comment on above: Performed By: #### L 500.2500, L100.0500 ####[facility] [address] [place], [address] MCV (RBC) [Entitic vol] 97.1 fL High 80-94 [facility] Comment on above: Performed By: #### L 500.2500, L100.0500 ####[facility] [address] [place], [address] Platelet mean volume (Bld) [Entitic vol] 11.0 fL Normal 6.2-12.0 [facility] Comment on above: Performed By: #### L 500.2500, L100.0500 ####[facility] [address] [place], [address] Platelets (Bld) [#/Vol] 223 10*3/uL Normal 150-450 [facility] Comment on above: Performed By: #### L 500.2500, L100.0500 ####[facility] [address] [place], [address] RBC (Bld) [#/Vol] 3.07 10*6/uL Low 4.6-6.2 [facility] Comment on above: Performed By: #### L 500.2500, L100.0500 ####[facility] [address] [place], [address] RDW SD 53.1 fl High 35.1-43.9 [facility] Comment on above: Performed By: #### L 500.2500, L100.0500 ####[facility] [address] [place], [address] WBC (Bld) [#/Vol] 8.1 10*3/uL Normal 4.4-11.0 [facility] Comment on above: Performed By: #### L 500.2500, L100.0500 ####[facility] [address] [place], [address] Decalcification bone/plaqueo n 05-07-2024 Decalcification bone/plaque Normal [facility] Comment on above: Performed By: #### P DEC ####[facility] [address] [place], [address] Foot 2 Viewson 05-07-2024 Foot 2 Views Normal [facility] MR/POSTOP.ANEon 05-07-2024 MR/POSTOP.ANE Normal [facility] MR/HAIOAABV3se 05-07-2024 MR/POSTOPAN2 Normal [facility] Operative Reporton Operative Report Normal [facility] Basic Metabolic Profile (BMP )on 05-06-2024 BUN/CRE 11.3 RATIO Normal 10-20 [facility] Comment on above: Performed By: #### L 500.2500, L100.0500 ####[facility] [address] [place], [address] CA,Total 8.9 mg/dL Normal 8.5-10.1 [facility] Comment on above: Performed By: #### L 500.2500, L100.0500 ####[facility] [address] [place], [address] Chloride [Moles/Vol] 99 mmol/L Normal 98-107 [facility] Comment on above: Performed By: #### L 500.2500, L100.0500 ####[facility] [address] [place], [address] CO2 [Moles/Vol] 27.0 mmol/L Normal 21.0-32.0 [facility] Comment on above: Performed By: #### L 500.2500, L100.0500 ####[facility] [address] [place], [address] Creatinine [Mass/Vol] 4.26 mg/dL High 0.70-1.30 [facility] [place] Comment on above: Result Comment: The validity of the calculated GFR GFRAA in patients over70 years has not been determined. Clinical correlation isessential. Performed By: #### L 500.2500, L100.0500 ####[facility] [address] [place], [address] ECRCL 13.25 ml/min Normal [facility] Comment on above: Performed By: #### L 500.2500, L100.0500 ####[facility] [address] [place], [address] EST GFR - AA 17 mL/min Low >60 [facility] Comment on above: Result Comment: Afri can [place] GFR Calc Performed By: #### L 500.2500, L100.0500 ####[facility] [address] [place], [address] GAP 7 Normal 5-15 [facility] Comment on above: Performed By: #### L 500.2500, L100.0500 ####[facility] [address] [place], [address] GFR/1.73 sq M.predicted among non-blacks MDRD (S/P/Bld) [Vol rate/Area] 14 mL/min/{1.73_m2} Low >60 [facility] Comment on above: Result Comment: Non- GFR Calc Performed By: #### L 500.2500, L100.0500 ####[facility] [address] [place], [address] Glucose [Mass/Vol] 181 mg/dL High 74-106 [facility] Comment on above: Result Comment: Fast ing Glucose result greater than or equal to 126 mg/dLsuggests DIABETES MELLITUS per A.D.A. criteria. Performed By: #### L 500.2500, L100.0500 ####[facility] [address] [place], [address] Potassium [Moles/Vol] 4.3 mmol/L Normal 3.5-5.1 [facility] [place] Comment on above: Performed By: #### L 500.2500, L100.0500 ####[facility] [address] [place], [address] Sodium [Moles/Vol] 133 mmol/L Low 136-145 [facility] Comment on above: Performed By: #### L 500.2500, L100.0500 ####[facility] [address] [place], [address] Urea nitrogen [Mass/Vol] 48 mg/dL High 7-18 [facility] Comment on above: Performed By: #### L 500.2500, L100.0500 ####[facility] [address] [place], [address] Bedside Glucoseon 05-06-2024 FINGERSTICK GLU 215 mg/dL High 74-106 [facility] Comment on above: Result Comment: FANG GEMENT OF PATIENT CARE PER NURSING PROTOCOL Performed By: #### L 501.080 ####[facility] [address] [place], [address] FINGERSTICK GLU 142 mg/dL High 74-106 [facility] Comment on above: Result Comment: FANG GEMENT OF PATIENT CARE PER NURSING PROTOCOL Performed By: #### L 501.080 ####[facility] [address] [place], [address] FINGERSTICK GLU 228 mg/dL High 74-106 [facility] Comment on above: Result Comment: FANG GEMENT OF PATIENT CARE PER NURSING PROTOCOL Performed By: #### L 501.080 ####[facility] [address] [place], [address] CBC-Complete Blood Cnt No Di ffon 05-06-2024 Erythrocyte distribution width (RBC) [Ratio] 15.1 % High 11.6-14.6 [facility] Comment on above: Performed By: #### L 500.2500, L100.0500 ####[facility] [address] [place], [address] Hematocrit (Bld) [Volume fraction] 32.3 % Low 40-54 [facility] Comment on above: Performed By: #### L 500.2500, L100.0500 ####[facility] [address] [place], [address] Hemoglobin (Bld) [Mass/Vol] 9.7 g/dL Low 13.0-16.5 [facility] Comment on above: Performed By: #### L 500.2500, L100.0500 ####[facility] [address] [place], [address] MCH (RBC) [Entitic mass] 29.2 pg Normal 27.0-32.0 [facility] Comment on above: Performed By: #### L 500.2500, L100.0500 ####[facility] [address] [place], [address] MCHC (RBC) [Mass/Vol] 30.0 g/dL Low 32-36 [facility] Comment on above: Performed By: #### L 500.2500, L100.0500 ####[facility] [address] [place] [place], [address] MCV (RBC) [Entitic vol] 97.3 fL High 80-94 [facility] Comment on above: Performed By: #### L 500.2500, L100.0500 ####[facility] [address] [place], [address] Platelet mean volume (Bld) [Entitic vol] 11.1 fL Normal 6.2-12.0 [facility] Comment on above: Performed By: #### L 500.2500, L100.0500 ####[facility] [address] [place], [address] Platelets (Bld) [#/Vol] 238 10*3/uL Normal 150-450 [facility] Comment on above: Performed By: #### L 500.2500, L100.0500 ####[facility] [address] [place], [address] RBC (Bld) [#/Vol] 3.32 10*6/uL Low 4.6-6.2 [facility] Comment on above: Performed By: #### L 500.2500, L100.0500 ####[facility] [address] [place], [address] RDW SD 54.1 fl High 35.1-43.9 [facility] Comment on above: Performed By: #### L 500.2500, L100.0500 ####[facility] [address] [place], [address] WBC (Bld) [#/Vol] 8.5 10*3/uL Normal 4.4-11.0 [facility] Comment on above: Performed By: #### L 500.2500, L100.0500 ####[facility] [address] [place], [address] Basic Metabolic Profile (BMP )on 05-05-2024 BUN/CRE 9.2 RATIO Low 10-20 [facility] Comment on above: Performed By: #### L 100.0100, L500.2500 ####[facility] [address] [place], [address] CA,Total 8.9 mg/dL Normal 8.5-10.1 [facility] Comment on above: Performed By: #### L 100.0100, L500.2500 ####[facility] [address] [place], [address] Chloride [Moles/Vol] 95 mmol/L Low 98-107 [facility] Comment on above: Performed By: #### L 100.0100, L500.2500 ####[facility] [address] [place], [address] CO2 [Moles/Vol] 30.0 mmol/L Normal 21.0-32.0 [facility] Comment on above: Performed By: #### L 100.0100, L500.2500 ####[facility] [address] [place], [address] Creatinine [Mass/Vol] 5.32 mg/dL High 0.70-1.30 [facility] Comment on above: Result Comment: The validity of the calculated GFR GFRAA in patients over70 years has not been determined. Clinical correlation isessential. Performed By: #### L 100.0100, L500.2500 ####[facility] [address] [place], [address] ECRCL 10.63 ml/min Normal [facility] Comment on above: Performed By: #### L 100.0100, L500.2500 ####[facility] [address] [place], [address] EST GFR - AA 13 mL/min Low >60 [facility] Comment on above: Result Comment: Afri can [place] GFR Calc Performed By: #### L 100.0100, L500.2500 ####[facility] [address] [place], [address] GAP 11 Normal 5-15 [facility] Comment on above: Performed By: #### L 100.0100, L500.2500 ####[facility] [address] [place], [address] GFR/1.73 sq M.predicted among non-blacks MDRD (S/P/Bld) [Vol rate/Area] 11 mL/min/{1.73_m2} Low >60 [facility] Comment on above: Result Comment: Non- GFR Calc Performed By: #### L 100.0100, L500.2500 ####[facility] [address] [place], [address] Glucose [Mass/Vol] 111 mg/dL High 74-106 [facility] Comment on above: Result Comment: Fast ing Glucose result from 100 to 125 mg/dLsuggests IMPAIRED HOMEOSTASIS per A.D.A. criteria. Performed By: #### L 100.0100, L500.2500 ####[facility] [address] [place], [address] Potassium [Moles/Vol] 3.9 mmol/L Normal 3.5-5.1 [facility] Comment on above: Performed By: #### L 100.0100, L500.2500 ####[facility] [address] [place], [address] Sodium [Moles/Vol] 135 mmol/L Low 136-145 [facility] Comment on above: Performed By: #### L 100.0100, L500.2500 ####[facility] [address] [place], [address] Urea nitrogen [Mass/Vol] 49 mg/dL High 7-18 [facility] Comment on above: Performed By: #### L 100.0100, L500.2500 ####[facility] [address] [place], [address] Bedside Glucoseon 05-05-2024 FINGERSTICK GLU 155 mg/dL High 74-106 [facility] Comment on above: Result Comment: FANG GEMENT OF PATIENT CARE PER NURSING PROTOCOL Performed By: #### L 501.080 ####[facility] [address] [place], [address] FINGERSTICK GLU 210 mg/dL High 74-106 [facility] Comment on above: Result Comment: FANG GEMENT OF PATIENT CARE PER NURSING PROTOCOL Performed By: #### L 501.080 ####[facility] [address] [place], [address] FINGERSTICK GLU 202 mg/dL High 74-106 [facility] Comment on above: Result Comment: FANG GEMENT OF PATIENT CARE PER NURSING PROTOCOL Performed By: #### L 501.080 ####[facility] [address] [place], [address] FINGERSTICK GLU 136 mg/dL High 74-106 [facility] Comment on above: Result Comment: FANG GEMENT OF PATIENT CARE PER NURSING PROTOCOL Performed By: #### L 501.080 ####[facility] [address] [place], [address] FINGERSTICK GLU 171 mg/dL High 74-106 [facility] Comment on above: Result Comment: FANG GEMENT OF PATIENT CARE PER NURSING PROTOCOL Performed By: #### L 501.080 ####[facility] [address] [place], [address] CBC W/Diff, Automatedon 12- Absolute Lymph 2.35 X10 3/uL Normal 0.83-4.51 [facility] Comment on above: Performed By: #### L 100.0100, L500.2500 ####[facility] [address] [place], [address] Absolute Neut 6.8 X10 3/uL Normal 2.0-7.7 [facility] Comment on above: Performed By: #### L 100.0100, L500.2500 ####[facility] [address] [place], [address] Basophils/100 WBC (Bld) 0.8 % Normal 0-1 [facility] Comment on above: Performed By: #### L 100.0100, L500.2500 ####[facility] [address] [place], [address] Eosinophils/100 WBC (Bld) 3.1 % Normal 0-5 [facility] Comment on above: Performed By: #### L 100.0100, L500.2500 ####[facility] [address] [place], [address] Erythrocyte distribution width (RBC) [Ratio] 15.1 % High 11.6-14.6 [facility] Comment on above: Performed By: #### L 100.0100, L500.2500 ####[facility] [address] [place], [address] Hematocrit (Bld) [Volume fraction] 31.1 % Low 40-54 [facility] Comment on above: Performed By: #### L 100.0100, L500.2500 ####[facility] [address] [place], [address] Hemoglobin (Bld) [Mass/Vol] 9.4 g/dL Low 13.0-16.5 [facility] Comment on above: Performed By: #### L 100.0100, L500.2500 ####[facility] [address] [place], [address] IG% 0.600 Normal 0.0-0.9 [facility] Comment on above: Result Comment: IG% - Immature Granulocytes (promyelocytes, myelocytes andmetamyelocytes) > 1% indicates that a LEFT SHIFT is Present. Performed By: #### L 100.0100, L500.2500 ####[facility] [address] [place], [address] Lymphocytes/100 WBC (Bld) 22.1 % Normal 19-41 [facility] Comment on above: Performed By: #### L 100.0100, L500.2500 ####[facility] [address] [place], [address] MCH (RBC) [Entitic mass] 28.8 pg Normal 27.0-32.0 [facility] Comment on above: Performed By: #### L 100.0100, L500.2500 ####[facility] [address] [place], [address] MCHC (RBC) [Mass/Vol] 30.2 g/dL Low 32-36 [facility] Comment on above: Performed By: #### L 100.0100, L500.2500 ####[facility] [address] [place], [address] MCV (RBC) [Entitic vol] 95.4 fL High 80-94 [facility] Comment on above: Performed By: #### L 100.0100, L500.2500 ####[facility] [address] [place], [address] Monocytes/100 WBC (Bld) 9.2 % Normal 0-10 [facility] Comment on above: Performed By: #### L 100.0100, L500.2500 ####[facility] [address] [place], [address] Neutrophils/100 WBC (Bld) 64.2 % Normal 47-70 [facility] Comment on above: Performed By: #### L 100.0100, L500.2500 ####[facility] [address] [place], [address] Nucleated RBC (Bld) [#/Vol] 0 10*3/uL Normal 0-5 [facility] Comment on above: Performed By: #### L 100.0100, L500.2500 ####[facility] [address] [place], [address] Platelet mean volume (Bld) [Entitic vol] 11.2 fL Normal 6.2-12.0 [facility] Comment on above: Performed By: #### L 100.0100, L500.2500 ####[facility] [address] [place], [address] Platelets (Bld) [#/Vol] 263 10*3/uL Normal 150-450 [facility] Comment on above: Performed By: #### L 100.0100, L500.2500 ####[facility] [address] [place], [address] RBC (Bld) [#/Vol] 3.26 10*6/uL Low 4.6-6.2 [facility] Comment on above: Performed By: #### L 100.0100, L500.2500 ####[facility] [address] [place], [address] RDW SD 52.6 fl High 35.1-43.9 [facility] Comment on above: Performed By: #### L 100.0100, L500.2500 ####[facility] [address] [place], [address] WBC (Bld) [#/Vol] 10.6 10*3/uL Normal 4.4-11.0 [facility] Comment on above: Performed By: #### L 100.0100, L500.2500 ####[facility] [address] [place], [address] Consultation - Nephrologyon 05-05-2024 Consultation - Nephrology Normal [facility] 12 Lead EKGon 05-04-2024 12 Lead EKG Normal [facility] Ankle Brachial Indexon 05-04 Ankle Brachial Index Normal [facility] Basic Metabolic Profile (BMP )on 05-04-2024 BUN/CRE 6.8 RATIO Low 10-20 [facility] Comment on above: Performed By: #### L 100.0100, L501.6710, L101.9900, L500.2500 ####[facility] [address] [place], [address] CA,Total 9.4 mg/dL Normal 8.5-10.1 [facility] Comment on above: Performed By: #### L 100.0100, L501.6710, L101.9900, L500.2500 ####[facility] [address] [place], [address] Chloride [Moles/Vol] 94 mmol/L Low 98-107 [facility] Comment on above: Performed By: #### L 100.0100, L501.6710, L101.9900, L500.2500 ####[facility] [address] [place], [address] CO2 [Moles/Vol] 31.0 mmol/L Normal 21.0-32.0 [facility] Comment on above: Performed By: #### L 100.0100, L501.6710, L101.9900, L500.2500 ####[facility] [address] [place], [address] Creatinine [Mass/Vol] 4.58 mg/dL High 0.70-1.30 [facility] Comment on above: Result Comment: The validity of the calculated GFR GFRAA in patients over70 years has not been determined. Clinical correlation isessential. Performed By: #### L 100.0100, L501.6710, L101.9900, L500.2500 ####[facility] [address] [place], [address] ECRCL 13.00 ml/min Normal [facility] Comment on above: Performed By: #### L 100.0100, L501.6710, L101.9900, L500.2500 ####[facility] [address] [place], [address] EST GFR - AA 16 mL/min Low >60 [facility] Comment on above: Result Comment: Afri can [place] GFR Calc Performed By: #### L 100.0100, L501.6710, L101.9900, L500.2500 ####[facility] [address] [place], [address] GAP 7 Normal 5-15 [facility] Comment on above: Performed By: #### L 100.0100, L501.6710, L101.9900, L500.2500 ####[facility] [address] [place], [address] GFR/1.73 sq M.predicted among non-blacks MDRD (S/P/Bld) [Vol rate/Area] 13 mL/min/{1.73_m2} Low >60 [facility] Comment on above: Result Comment: Non- GFR Calc Performed By: #### L 100.0100, L501.6710, L101.9900, L500.2500 ####[facility] [address] [place], [address] Glucose [Mass/Vol] 297 mg/dL High 74-106 [facility] Comment on above: Result Comment: Gluc ose result greater than or equal to 200 mg/dLsuggests DIABETES MELLITUS per A.D.A. criteria. Performed By: #### L 100.0100, L501.6710, L101.9900, L500.2500 ####[facility] [address] [place], [address] Potassium [Moles/Vol] 3.7 mmol/L Normal 3.5-5.1 [facility] Comment on above: Performed By: #### L 100.0100, L501.6710, L101.9900, L500.2500 ####[facility] [address] [place], [address] Sodium [Moles/Vol] 133 mmol/L Low 136-145 [facility] Comment on above: Performed By: #### L 100.0100, L501.6710, L101.9900, L500.2500 ####[facility] [address] [place], [address] Urea nitrogen [Mass/Vol] 31 mg/dL High 7-18 [facility] Comment on above: Performed By: #### L 100.0100, L501.6710, L101.9900, L500.2500 ####[facility] [address] [place], [address] Bedside Glucoseon 05-04-2024 FINGERSTICK GLU 342 mg/dL High 74-106 [facility] Comment on above: Result Comment: FANG VAZQUEZ OF PATIENT CARE PER NURSING PROTOCOL Performed By: #### L 501.080 ####[facility] [address] [place], [address] CBC W/Diff, Automatedon 12 Absolute Lymph 2.08 X10 3/uL Normal 0.83-4.51 [facility] Comment on above: Performed By: #### L 100.0100, L501.6710, L101.9900, L500.2500 ####[facility] [address] [place], [address] Absolute Neut 5.8 X10 3/uL Normal 2.0-7.7 [facility] Comment on above: Performed By: #### L 100.0100, L501.6710, L101.9900, L500.2500 ####[facility] [address] [place], [address] Basophils/100 WBC (Bld) 1.0 % Normal 0-1 [facility] Comment on above: Performed By: #### L 100.0100, L501.6710, L101.9900, L500.2500 ####[facility] [address] [place], [address] Eosinophils/100 WBC (Bld) 2.4 % Normal 0-5 [facility] Comment on above: Performed By: #### L 100.0100, L501.6710, L101.9900, L500.2500 ####[facility] [address] [place], [address] Erythrocyte distribution width (RBC) [Ratio] 15.4 % High 11.6-14.6 [facility] Comment on above: Performed By: #### L 100.0100, L501.6710, L101.9900, L500.2500 ####[facility] [address] [place], [address] Hematocrit (Bld) [Volume fraction] 36.7 % Low 40-54 [facility] Comment on above: Performed By: #### L 100.0100, L501.6710, L101.9900, L500.2500 ####[facility] [address] [place], [address] Hemoglobin (Bld) [Mass/Vol] 11.3 g/dL Low 13.0-16.5 [facility] Comment on above: Performed By: #### L 100.0100, L501.6710, L101.9900, L500.2500 ####[facility] [address] [place], [address] IG% 0.800 Normal 0.0-0.9 [facility] Comment on above: Result Comment: IG% - Immature Granulocytes (promyelocytes, myelocytes andmetamyelocytes) > 1% indicates that a LEFT SHIFT is Present. Performed By: #### L 100.0100, L501.6710, L101.9900, L500.2500 ####[facility] [address] [place], [address] Lymphocytes/100 WBC (Bld) 22.5 % Normal 19-41 [facility] Comment on above: Performed By: #### L 100.0100, L501.6710, L101.9900, L500.2500 ####[facility] [address] [place], [address] MCH (RBC) [Entitic mass] 29.3 pg Normal 27.0-32.0 [facility] Comment on above: Performed By: #### L 100.0100, L501.6710, L101.9900, L500.2500 ####[facility] [address] [place], [address] MCHC (RBC) [Mass/Vol] 30.8 g/dL Low 32-36 [facility] Comment on above: Performed By: #### L 100.0100, L501.6710, L101.9900, L500.2500 ####[facility] [address] [place], [address] MCV (RBC) [Entitic vol] 95.1 fL High 80-94 [facility] Comment on above: Performed By: #### L 100.0100, L501.6710, L101.9900, L500.2500 ####[facility] [address] [place], [address] Monocytes/100 WBC (Bld) 10.2 % High 0-10 [facility] Comment on above: Performed By: #### L 100.0100, L501.6710, L101.9900, L500.2500 ####[facility] [address] [place], [address] Neutrophils/100 WBC (Bld) 63.1 % Normal 47-70 [facility] Comment on above: Performed By: #### L 100.0100, L501.6710, L101.9900, L500.2500 ####[facility] [address] [place], [address] Nucleated RBC (Bld) [#/Vol] 0 10*3/uL Normal 0-5 [facility] Comment on above: Performed By: #### L 100.0100, L501.6710, L101.9900, L500.2500 ####[facility] [address] [place], [address] Platelet mean volume (Bld) [Entitic vol] 11.4 fL Normal 6.2-12.0 [facility] Comment on above: Performed By: #### L 100.0100, L501.6710, L101.9900, L500.2500 ####[facility] [address] [place], [address] Platelets (Bld) [#/Vol] 288 10*3/uL Normal 150-450 [facility] Comment on above: Performed By: #### L 100.0100, L501.6710, L101.9900, L500.2500 ####[facility] [address] [place], [address] RBC (Bld) [#/Vol] 3.86 10*6/uL Low 4.6-6.2 [facility] Comment on above: Performed By: #### L 100.0100, L501.6710, L101.9900, L500.2500 ####[facility] [address] [place], [address] RDW SD 53.0 fl High 35.1-43.9 [facility] Comment on above: Performed By: #### L 100.0100, L501.6710, L101.9900, L500.2500 ####[facility] [address] [place], [address] WBC (Bld) [#/Vol] 9.2 10*3/uL Normal 4.4-11.0 [facility] Comment on above: Performed By: #### L 100.0100, L501.6710, L101.9900, L500.2500 ####[facility] [address] [place], [address] CRPon 05-04-2024 C-REACTIVE PROT 72.90 mg/L High 0.0-3.0 [facility] Comment on above: Result Comment: C-Re active Protein (CRP) provides useful information for thediagnosis, therapy and monitoring of inflammatory processesand associated diseases. For the evaluation of Relative Riskfor Cardiovascular Disease, a High Sensitivity CRP (HSCRP)should be ordered. Performed By: #### L 100.0100, L501.6710, L101.9900, L500.2500 ####[facility] [address] [place], [address] Consultation - Surgicalon Consultation - Surgical Normal [facility] Emergency Department Summary on 05-04-2024 Emergency Department Summary Normal [facility] Erythrocyte Sed Rateon 05-04 SED RATE 81 mm/hr High 0-20 [facility] Comment on above: Performed By: #### L 100.0100, L501.6710, L101.9900, L500.2500 ####[facility] [address] [place], [address] Foot min 3 Viewson 4 Foot min 3 Views Normal [facility] H AND P Exam - Hospitaliston 05-04-2024 H&P Exam - Hospitalist Normal [facility] US Art Duplex Unilat Lower E xton 05-04-2024 US Art Duplex Unilat Lower Ext Normal [facility] Basic Metabolic Profile (BMP )on 05-02-2024 BUN/CRE 6.9 RATIO Low 10-20 [facility] Comment on above: Order Comment: 107.2 Performed By: #### L 100.0500, L500.2500 ####[facility] [address] [place], [address] CA,Total 8.8 mg/dL Normal 8.5-10.1 [facility] Comment on above: Order Comment: 107.2 Performed By: #### L 100.0500, L500.2500 ####[facility] [address] [place], [address] Chloride [Moles/Vol] 96 mmol/L Low 98-107 [facility] Comment on above: Order Comment: 107.2 Performed By: #### L 100.0500, L500.2500 ####[facility] [address] [place], [address] CO2 [Moles/Vol] 30.0 mmol/L Normal 21.0-32.0 [facility] Comment on above: Order Comment: 107.2 Performed By: #### L 100.0500, L500.2500 ####[facility] [address] [place], [address] Creatinine [Mass/Vol] 4.34 mg/dL High 0.70-1.30 [facility] Comment on above: Order Comment: 107.2 Result Comment: The validity of the calculated GFR GFRAA in patients over70 years has not been determined. Clinical correlation isessential. Performed By: #### L 100.0500, L500.2500 ####[facility] [address] [place], [address] EST GFR - AA 17 mL/min Low >60 [facility] Comment on above: Order Comment: 107.2 Result Comment: Afri can [place] GFR Calc Performed By: #### L 100.0500, L500.2500 ####[facility] [address] [place], [address] GAP 7 Normal 5-15 [facility] Comment on above: Order Comment: 107.2 Performed By: #### L 100.0500, L500.2500 ####[facility] [address] [place], [address] GFR/1.73 sq M.predicted among non-blacks MDRD (S/P/Bld) [Vol rate/Area] 14 mL/min/{1.73_m2} Low >60 [facility] Comment on above: Order Comment: 107.2 Result Comment: Non- GFR Calc Performed By: #### L 100.0500, L500.2500 ####[facility] [address] [place], [address] Glucose [Mass/Vol] 138 mg/dL High 74-106 [facility] Comment on above: Order Comment: 107.2 Result Comment: Fast ing Glucose result greater than or equal to 126 mg/dLsuggests DIABETES MELLITUS per A.D.A. criteria. Performed By: #### L 100.0500, L500.2500 ####[facility] [address] [place], [address] Potassium [Moles/Vol] 3.6 mmol/L Normal 3.5-5.1 [facility] Comment on above: Order Comment: 107.2 Performed By: #### L 100.0500, L500.2500 ####[facility] [address] [place], [address] Sodium [Moles/Vol] 133 mmol/L Low 136-145 [facility] Comment on above: Order Comment: 107.2 Performed By: #### L 100.0500, L500.2500 ####[facility] [address] [place], [address] Urea nitrogen [Mass/Vol] 30 mg/dL High 7-18 [facility] Comment on above: Order Comment: 107.2 Performed By: #### L 100.0500, L500.2500 ####[facility] [address] [place], [address] CBC-Complete Blood Cnt No Di ffon 05-02-2024 Erythrocyte distribution width (RBC) [Ratio] 15.1 % High 11.6-14.6 [facility] [facility] Comment on above: Order Comment: 107.2 Performed By: #### L 100.0500, L500.2500 ####[facility] [address] [place], [address] Hematocrit (Bld) [Volume fraction] 29.9 % Low 40-54 [facility] Comment on above: Order Comment: 107.2 Performed By: #### L 100.0500, L500.2500 ####[facility] [address] [place], [address] Hemoglobin (Bld) [Mass/Vol] 9.6 g/dL Low 13.0-16.5 [facility] Comment on above: Order Comment: 107.2 Performed By: #### L 100.0500, L500.2500 ####[facility] [address] [place], [address] MCH (RBC) [Entitic mass] 30.2 pg Normal 27.0-32.0 [facility] Comment on above: Order Comment: 107.2 Performed By: #### L 100.0500, L500.2500 ####[facility] [address] [place], [address] MCHC (RBC) [Mass/Vol] 32.1 g/dL Normal 32-36 [facility] [place] Comment on above: Order Comment: 107.2 Performed By: #### L 100.0500, L500.2500 ####[facility] [address] [place], [address] MCV (RBC) [Entitic vol] 94.0 fL Normal 80-94 [facility] Comment on above: Order Comment: 107.2 Performed By: #### L 100.0500, L500.2500 ####[facility] [address] [place], [address] Platelet mean volume (Bld) [Entitic vol] 10.9 fL Normal 6.2-12.0 [facility] Comment on above: Order Comment: 107.2 Performed By: #### L 100.0500, L500.2500 ####[facility] [address] [place], [address] Platelets (Bld) [#/Vol] 275 10*3/uL Normal 150-450 [facility] Comment on above: Order Comment: 107.2 Performed By: #### L 100.0500, L500.2500 ####[facility] [address] [place], [address] RBC (Bld) [#/Vol] 3.18 10*6/uL Low 4.6-6.2 [facility] Comment on above: Order Comment: 107.2 Performed By: #### L 100.0500, L500.2500 ####[facility] [address] [place], [address] RDW SD 52.3 fl High 35.1-43.9 [facility] Comment on above: Order Comment: 107.2 Performed By: #### L 100.0500, L500.2500 ####[facility] [address] [place], [address] WBC (Bld) [#/Vol] 8.9 10*3/uL Normal 4.4-11.0 [facility] Comment on above: Order Comment: 107.2 Performed By: #### L 100.0500, L500.2500 ####[facility] [address] [place], [address] Wound Cultureon 05-01-2024 WC Normal [facility] Comment on above: Performed By: #### M 100.4001, M100.2000, M100.3000 ####[facility] [address] [place], [address] Bedside Glucoseon 04-24-2024 FINGERSTICK GLU 202 mg/dL High 74-106 [facility] Comment on above: Result Comment: FANG GEMENT OF PATIENT CARE PER NURSING PROTOCOL Performed By: #### L 501.080 ####[facility] [address] [place], [address] FINGERSTICK GLU 139 mg/dL High 74-106 [facility] Comment on above: Result Comment: FANG GEMENT OF PATIENT CARE PER NURSING PROTOCOL Performed By: #### L 501.080 ####[facility] [address] [place], [address] FINGERSTICK GLU 153 mg/dL High 74-106 [facility] Comment on above: Result Comment: FANG GEMENT OF PATIENT CARE PER NURSING PROTOCOL Performed By: #### L 501.080 ####[facility] [address] [place], [address] FINGERSTICK GLU 250 mg/dL High 74-106 [facility] Comment on above: Result Comment: FANG GEMENT OF PATIENT CARE PER NURSING PROTOCOL Performed By: #### L 501.080 ####[facility] [address] [place], [address] Bedside Glucoseon 04-23-2024 FINGERSTICK GLU 311 mg/dL High 74-106 [facility] Comment on above: Result Comment: FANG GEMENT OF PATIENT CARE PER NURSING PROTOCOL Performed By: #### L 501.080 ####[facility] [address] [place], [address] FINGERSTICK GLU 252 mg/dL High -106 [facility] Comment on above: Result Comment: FANG GEMENT OF PATIENT CARE PER NURSING PROTOCOL Performed By: #### L 501.080 ####[facility] [address] [place], [address] FINGERSTICK GLU 173 mg/dL High -106 [facility] Comment on above: Result Comment: FANG GEMENT OF PATIENT CARE PER NURSING PROTOCOL Performed By: #### L 501.080 ####[facility] [address] [place], [address] CNPTOUTREACHon 04-23-2024 CNPTOUTREACH Normal [facility] Basic Metabolic Profile (BMP )on 04-22-2024 BUN/CRE 13.8 RATIO Normal 10-20 [facility] Comment on above: Performed By: #### L 100.0100, L500.2500 ####[facility] [address] [place], [address] CA,Total 8.5 mg/dL Normal 8.5-10.1 [facility] Comment on above: Performed By: #### L 100.0100, L500.2500 ####[facility] [address] [place], [address] Chloride [Moles/Vol] 100 mmol/L Normal 98-107 [facility] Comment on above: Performed By: #### L 100.0100, L500.2500 ####[facility] [address] [place], [address] CO2 [Moles/Vol] 25.0 mmol/L Normal 21.0-32.0 [facility] Comment on above: Performed By: #### L 100.0100, L500.2500 ####[facility] [address] [place], [address] Creatinine [Mass/Vol] 4.80 mg/dL High 0.70-1.30 [facility] [place] Comment on above: Result Comment: The validity of the calculated GFR GFRAA in patients over70 years has not been determined. Clinical correlation isessential. Performed By: #### L 100.0100, L500.2500 ####[facility] [address] [place], [address] ECRCL 12.57 ml/min Normal [facility] Comment on above: Performed By: #### L 100.0100, L500.2500 ####[facility] [address] [place], [address] EST GFR - AA 15 mL/min Low >60 [facility] Comment on above: Result Comment: Afri can [place] GFR Calc Performed By: #### L 100.0100, L500.2500 ####[facility] [address] [place], [address] GAP 10 Normal 5-15 [facility] Comment on above: Performed By: #### L 100.0100, L500.2500 ####[facility] [address] [place], [address] GFR/1.73 sq M.predicted among non-blacks MDRD (S/P/Bld) [Vol rate/Area] 12 mL/min/{1.73_m2} Low >60 [facility] Comment on above: Result Comment: Non- GFR Calc Performed By: #### L 100.0100, L500.2500 ####[facility] [address] [place], [address] Glucose [Mass/Vol] 66 mg/dL Low 74-106 [facility] Comment on above: Performed By: #### L 100.0100, L500.2500 ####[facility] [address] [place], [address] Potassium [Moles/Vol] 4.1 mmol/L Normal 3.5-5.1 [facility] Comment on above: Performed By: #### L 100.0100, L500.2500 ####[facility] [address] [place], [address] Sodium [Moles/Vol] 135 mmol/L Low 136-145 [facility] Comment on above: Performed By: #### L 100.0100, L500.2500 ####[facility] [address] [place], [address] Urea nitrogen [Mass/Vol] 66 mg/dL High 7-18 [facility] Comment on above: Performed By: #### L 100.0100, L500.2500 ####[facility] [address] [place], [address] Bedside Glucoseon 04-22-2024 FINGERSTICK GLU 290 mg/dL High 74-106 [facility] Comment on above: Result Comment: FANG GEMENT OF PATIENT CARE PER NURSING PROTOCOL Performed By: #### L 501.080 ####[facility] [address] [place], [address] FINGERSTICK GLU 220 mg/dL High 74-106 [facility] Comment on above: Result Comment: FANG GEMENT OF PATIENT CARE PER NURSING PROTOCOL Performed By: #### L 501.080 ####[facility] [address] [place], [address] FINGERSTICK GLU 191 mg/dL High 74-106 [facility] Comment on above: Result Comment: FANG GEMENT OF PATIENT CARE PER NURSING PROTOCOL Performed By: #### L 501.080 ####[facility] [address] [place], [address] FINGERSTICK GLU 54 mg/dL Low 74-106 [facility] Comment on above: Result Comment: FANG GEMENT OF PATIENT CARE PER NURSING PROTOCOL Performed By: #### L 501.080 ####[facility] [address] [place], [address] FINGERSTICK GLU 72 mg/dL Low 74-106 [facility] Comment on above: Result Comment: FANG GEMENT OF PATIENT CARE PER NURSING PROTOCOL Performed By: #### L 501.080 ####[facility] [address] [place], [address] CBC W/Diff, Automatedon 12-0 1-4 Absolute Lymph 2.51 X10 3/uL Normal 0.83-4.51 [facility] Comment on above: Performed By: #### L 100.0100, L500.2500 ####[facility] [address] [place], [address] Absolute Neut 11.4 X10 3/uL High 2.0-7.7 [facility] Comment on above: Performed By: #### L 100.0100, L500.2500 ####[facility] [address] [place], [address] Basophils/100 WBC (Bld) 0.5 % Normal 0-1 [facility] Comment on above: Performed By: #### L 100.0100, L500.2500 ####[facility] [address] [place], [address] Eosinophils/100 WBC (Bld) 2.2 % Normal 0-5 [facility] Comment on above: Performed By: #### L 100.0100, L500.2500 ####[facility] [address] [place], [address] Erythrocyte distribution width (RBC) [Ratio] 14.9 % High 11.6-14.6 [facility] Comment on above: Performed By: #### L 100.0100, L500.2500 ####[facility] [address] [place], [address] Hematocrit (Bld) [Volume fraction] 30.1 % Low 40-54 [facility] Comment on above: Performed By: #### L 100.0100, L500.2500 ####[facility] [address] [place], [address] Hemoglobin (Bld) [Mass/Vol] 9.4 g/dL Low 13.0-16.5 [facility] Comment on above: Performed By: #### L 100.0100, L500.2500 ####[facility] [address] [place], [address] IG% 1.700 High 0.0-0.9 [facility] Comment on above: Result Comment: IG% - Immature Granulocytes (promyelocytes, myelocytes andmetamyelocytes) > 1% indicates that a LEFT SHIFT is Present. Performed By: #### L 100.0100, L500.2500 ####[facility] [address] [place], [address] Lymphocytes/100 WBC (Bld) 15.8 % Low 19-41 [facility] Comment on above: Performed By: #### L 100.0100, L500.2500 ####[facility] [address] [place], [address] MCH (RBC) [Entitic mass] 30.1 pg Normal 27.0-32.0 [facility] Comment on above: Performed By: #### L 100.0100, L500.2500 ####[facility] [address] [place], [address] MCHC (RBC) [Mass/Vol] 31.2 g/dL Low 32-36 [facility] Comment on above: Performed By: #### L 100.0100, L500.2500 ####[facility] [address] [place], [address] MCV (RBC) [Entitic vol] 96.5 fL High 80-94 [facility] Comment on above: Performed By: #### L 100.0100, L500.2500 ####[facility] [address] [place], [address] Monocytes/100 WBC (Bld) 8.5 % Normal 0-10 [facility] Comment on above: Performed By: #### L 100.0100, L500.2500 ####[facility] [address] [place], [address] Neutrophils/100 WBC (Bld) 71.3 % High 47-70 [facility] Comment on above: Performed By: #### L 100.0100, L500.2500 ####[facility] [address] [place], [address] Nucleated RBC (Bld) [#/Vol] 0 10*3/uL Normal 0-5 [facility] Comment on above: Performed By: #### L 100.0100, L500.2500 ####[facility] [address] [place], [address] Platelet mean volume (Bld) [Entitic vol] 11.2 fL Normal 6.2-12.0 [facility] Comment on above: Performed By: #### L 100.0100, L500.2500 ####[facility] [address] [place], [address] Platelets (Bld) [#/Vol] 303 10*3/uL Normal 150-450 [facility] Comment on above: Performed By: #### L 100.0100, L500.2500 ####[facility] [address] [place], [address] RBC (Bld) [#/Vol] 3.12 10*6/uL Low 4.6-6.2 [facility] Comment on above: Performed By: #### L 100.0100, L500.2500 ####[facility] [address] [place], [address] RDW SD 52.3 fl High 35.1-43.9 [facility] Comment on above: Performed By: #### L 100.0100, L500.2500 ####[facility] [address] [place], [address] WBC (Bld) [#/Vol] 15.9 10*3/uL High 4.4-11.0 [facility] Comment on above: Performed By: #### L 100.0100, L500.2500 ####[facility] [address] [place], [address] Wound Cultureon 04-22-2024 WC Normal [facility] Comment on above: Performed By: #### M 100.2000, M100.3000 ####[facility] [address] [place], [address] Basic Metabolic Profile (BMP )on 04-21-2024 BUN/CRE 14.8 RATIO Normal - [facility] Comment on above: Performed By: #### L 500.2500, L100.0100 ####[facility] [address] [place], [address] CA,Total 8.6 mg/dL Normal 8.5-10.1 [facility] Comment on above: Performed By: #### L 500.2500, L100.0100 ####[facility] [address] [place], [address] Chloride [Moles/Vol] 98 mmol/L Normal 98-107 [facility] Comment on above: Performed By: #### L 500.2500, L100.0100 ####[facility] [address] [place], [address] CO2 [Moles/Vol] 25.0 mmol/L Normal 21.0-32.0 [facility] Comment on above: Performed By: #### L 500.2500, L100.0100 ####[facility] [address] [place], [address] Creatinine [Mass/Vol] 6.13 mg/dL High 0.70-1.30 [facility] Comment on above: Result Comment: The validity of the calculated GFR GFRAA in patients over70 years has not been determined. Clinical correlation isessential. Performed By: #### L 500.2500, L100.0100 ####[facility] [address] [place], [address] ECRCL 10.02 ml/min Normal [facility] Comment on above: Performed By: #### L 500.2500, L100.0100 ####[facility] [address] [place], [address] EST GFR - AA 11 mL/min Low >60 [facility] Comment on above: Result Comment: Afri can [place] GFR Calc Performed By: #### L 500.2500, L100.0100 ####[facility] [address] [place], [address] GAP 9 Normal 5-15 [facility] Comment on above: Performed By: #### L 500.2500, L100.0100 ####[facility] [address] [place], [address] GFR/1.73 sq M.predicted among non-blacks MDRD (S/P/Bld) [Vol rate/Area] 9 mL/min/{1.73_m2} Low >60 [facility] Comment on above: Result Comment: Non- GFR Calc Performed By: #### L 500.2500, L100.0100 ####[facility] [address] [place], [address] Glucose [Mass/Vol] 123 mg/dL High 74-106 [facility] Comment on above: Result Comment: Fast ing Glucose result from 100 to 125 mg/dLsuggests IMPAIRED HOMEOSTASIS per A.D.A. criteria. Performed By: #### L 500.2500, L100.0100 ####[facility] [address] [place], [address] Potassium [Moles/Vol] 4.4 mmol/L Normal 3.5-5.1 [facility] Comment on above: Performed By: #### L 500.2500, L100.0100 ####[facility] [address] [place], [address] Sodium [Moles/Vol] 132 mmol/L Low 136-145 [facility] Comment on above: Performed By: #### L 500.2500, L100.0100 ####[facility] [address] [place], [address] Urea nitrogen [Mass/Vol] 91 mg/dL High 7-18 [facility] Comment on above: Performed By: #### L 500.2500, L100.0100 ####[facility] [address] [place], [address] Bedside Glucoseon 04-21-2024 FINGERSTICK GLU 158 mg/dL High 74-106 [facility] Comment on above: Result Comment: FANG GEMENT OF PATIENT CARE PER NURSING PROTOCOL Performed By: #### L 501.080 ####[facility] [address] [place], [address] FINGERSTICK GLU 173 mg/dL High 74-106 [facility] Comment on above: Result Comment: FANG GEMENT OF PATIENT CARE PER NURSING PROTOCOL Performed By: #### L 501.080 ####[facility] [address] [place], [address] FINGERSTICK GLU 312 mg/dL High 74-106 [facility] Comment on above: Result Comment: FANG GEMENT OF PATIENT CARE PER NURSING PROTOCOL Performed By: #### L 501.080 ####[facility] [address] [place], [address] FINGERSTICK GLU 103 mg/dL Normal 74-106 [facility] Comment on above: Result Comment: FANG GEMENT OF PATIENT CARE PER NURSING PROTOCOL Performed By: #### L 501.080 ####[facility] [address] [place], [address] CBC W/Diff, Automatedon 11-3 0-2024 Absolute Lymph 2.21 X10 3/uL Normal 0.83-4.51 [facility] Comment on above: Performed By: #### L 500.2500, L100.0100 ####[facility] [address] [place], [address] Absolute Neut 10.9 X10 3/uL High 2.0-7.7 [facility] Comment on above: Performed By: #### L 500.2500, L100.0100 ####[facility] [address] [place], [address] Basophils/100 WBC (Bld) 0.3 % Normal 0-1 [facility] Comment on above: Performed By: #### L 500.2500, L100.0100 ####[facility] [address] [place], [address] Eosinophils/100 WBC (Bld) 2.1 % Normal 0-5 [facility] Comment on above: Performed By: #### L 500.2500, L100.0100 ####[facility] [address] [place], [address] Erythrocyte distribution width (RBC) [Ratio] 14.9 % High 11.6-14.6 [facility] Comment on above: Performed By: #### L 500.2500, L100.0100 ####[facility] [address] [place], [address] Hematocrit (Bld) [Volume fraction] 31.2 % Low 40-54 [facility] Comment on above: Performed By: #### L 500.2500, L100.0100 ####[facility] [address] [place], [address] Hemoglobin (Bld) [Mass/Vol] 9.4 g/dL Low 13.0-16.5 [facility] Comment on above: Performed By: #### L 500.2500, L100.0100 ####[facility] [address] [place], [address] IG% 1.700 High 0.0-0.9 [facility] Comment on above: Result Comment: IG% - Immature Granulocytes (promyelocytes, myelocytes andmetamyelocytes) > 1% indicates that a LEFT SHIFT is Present. Performed By: #### L 500.2500, L100.0100 ####[facility] [address] [place], [address] Lymphocytes/100 WBC (Bld) 14.7 % Low 19-41 [facility] Comment on above: Performed By: #### L 500.2500, L100.0100 ####[facility] [address] [place], [address] MCH (RBC) [Entitic mass] 29.1 pg Normal 27.0-32.0 [facility] Comment on above: Performed By: #### L 500.2500, L100.0100 ####[facility] [address] [place], [address] MCHC (RBC) [Mass/Vol] 30.1 g/dL Low 32-36 [facility] Comment on above: Performed By: #### L 500.2500, L100.0100 ####[facility] [address] [place], [address] MCV (RBC) [Entitic vol] 96.6 fL High 80-94 [facility] Comment on above: Performed By: #### L 500.2500, L100.0100 ####[facility] [address] [place], [address] Monocytes/100 WBC (Bld) 8.6 % Normal 0-10 [facility] Comment on above: Performed By: #### L 500.2500, L100.0100 ####[facility] [address] [place], [address] Neutrophils/100 WBC (Bld) 72.6 % High 47-70 [facility] Comment on above: Performed By: #### L 500.2500, L100.0100 ####[facility] [address] [place], [address] Nucleated RBC (Bld) [#/Vol] 0 10*3/uL Normal 0-5 [facility] Comment on above: Performed By: #### L 500.2500, L100.0100 ####[facility] [address] [place], [address] Platelet mean volume (Bld) [Entitic vol] 10.8 fL Normal 6.2-12.0 [facility] Comment on above: Performed By: #### L 500.2500, L100.0100 ####[facility] [address] [place], [address] Platelets (Bld) [#/Vol] 285 10*3/uL Normal 150-450 [facility] Comment on above: Performed By: #### L 500.2500, L100.0100 ####[facility] [address] [place], [address] RBC (Bld) [#/Vol] 3.23 10*6/uL Low 4.6-6.2 [facility] Comment on above: Performed By: #### L 500.2500, L100.0100 ####[facility] [address] [place], [address] RDW SD 51.8 fl High 35.1-43.9 [facility] Comment on above: Performed By: #### L 500.2500, L100.0100 ####[facility] [address] [place], [address] WBC (Bld) [#/Vol] 15.0 10*3/uL High 4.4-11.0 [facility] Comment on above: Performed By: #### L 500.2500, L100.0100 ####[facility] [address] [place], [address] Culture, Anaerobic Any Sourc reed 04-21-2024 CUAN Normal [facility] Comment on above: Performed By: #### M 100.4001, M100.2000, M100.3000 ####[facility] [address] [place], [address] Vancomycin, Random Levelon 1 06-21-2023 VANCO, RANDOM 15.6 ug/mL High 0.0-15.0 [facility] Comment on above: Result Comment: VANC OMYCIN STANDARD DRUG THERAPY: CRITICAL VALUE IS > 15.0 mg/LVANCOMYCIN HIGH INTENSITY THERAPY: CRITICAL VALUE IS > 20.0 mg/LPLEASE CONTACT PHARMACY SERVICES (#8649) FOR INTERPRETATIONOF RESULTS. THIS RESULT DOES NOT REPRESENT A PEAK OR TROUGHLEVEL FOR THIS DRUG. Performed By: #### L 501.8850 ####[facility] [address] [place], [address] Basic Metabolic Profile (BMP )on 04-20-2024 BUN/CRE 14.3 RATIO Normal 10-20 [facility] Comment on above: Performed By: #### L 500.2500, L100.0100 ####[facility] [address] [place], [address] CA,Total 8.6 mg/dL Normal 8.5-10.1 [facility] Comment on above: Performed By: #### L 500.2500, L100.0100 ####[facility] [address] [place], [address] Chloride [Moles/Vol] 98 mmol/L Normal 98-107 [facility] Comment on above: Performed By: #### L 500.2500, L100.0100 ####[facility] [address] [place], [address] CO2 [Moles/Vol] 23.0 mmol/L Normal 21.0-32.0 [facility] Comment on above: Performed By: #### L 500.2500, L100.0100 ####[facility] [address] [place], [address] Creatinine [Mass/Vol] 5.23 mg/dL High 0.70-1.30 [facility] [place] Comment on above: Result Comment: The validity of the calculated GFR GFRAA in patients over70 years has not been determined. Clinical correlation isessential. Performed By: #### L 500.2500, L100.0100 ####[facility] [address] [place], [address] ECRCL 11.74 ml/min Normal [facility] Comment on above: Performed By: #### L 500.2500, L100.0100 ####[facility] [address] [place], [address] EST GFR - AA 14 mL/min Low >60 [facility] Comment on above: Result Comment: Afri can [place] GFR Calc Performed By: #### L 500.2500, L100.0100 ####[facility] [address] [place], [address] GAP 10 Normal 5-15 [facility] Comment on above: Performed By: #### L 500.2500, L100.0100 ####[facility] [address] [place], [address] GFR/1.73 sq M.predicted among non-blacks MDRD (S/P/Bld) [Vol rate/Area] 11 mL/min/{1.73_m2} Low >60 [facility] Comment on above: Result Comment: Non- GFR Calc Performed By: #### L 500.2500, L100.0100 ####[facility] [address] [place], [address] Glucose [Mass/Vol] 264 mg/dL High 74-106 [facility] Comment on above: Result Comment: Gluc ose result greater than or equal to 200 mg/dLsuggests DIABETES MELLITUS per A.D.A. criteria. Performed By: #### L 500.2500, L100.0100 ####[facility] [address] [place], [address] Potassium [Moles/Vol] 4.4 mmol/L Normal 3.5-5.1 [facility] [place] Comment on above: Performed By: #### L 500.2500, L100.0100 ####[facility] [address] [place], [address] Sodium [Moles/Vol] 131 mmol/L Low 136-145 [facility] Comment on above: Performed By: #### L 500.2500, L100.0100 ####[facility] [address] [place], [address] Urea nitrogen [Mass/Vol] 75 mg/dL High 7-18 [facility] Comment on above: Performed By: #### L 500.2500, L100.0100 ####[facility] [address] [place], [address] Bedside Glucoseon 04-20-2024 FINGERSTICK GLU 317 mg/dL High 74-106 [facility] Comment on above: Result Comment: FANG GEMENT OF PATIENT CARE PER NURSING PROTOCOL Performed By: #### L 501.080 ####[facility] [address] [place], [address] FINGERSTICK GLU 306 mg/dL High 74-106 [facility] Comment on above: Result Comment: FANG GEMENT OF PATIENT CARE PER NURSING PROTOCOL Performed By: #### L 501.080 ####[facility] [address] [place], [address] FINGERSTICK GLU 254 mg/dL High 74-106 [facility] Comment on above: Result Comment: FANG GEMENT OF PATIENT CARE PER NURSING PROTOCOL Performed By: #### L 501.080 ####[facility] [address] [place], [address] CBC W/Diff, Automatedon 11- Absolute Lymph 1.78 X10 3/uL Normal 0.83-4.51 [facility] Comment on above: Performed By: #### L 500.2500, L100.0100 ####[facility] [address] [place], [address] Absolute Neut 10.4 X10 3/uL High 2.0-7.7 [facility] Comment on above: Performed By: #### L 500.2500, L100.0100 ####[facility] [address] [place], [address] Basophils/100 WBC (Bld) 0.4 % Normal 0-1 [facility] Comment on above: Performed By: #### L 500.2500, L100.0100 ####[facility] [address] [place], [address] Eosinophils/100 WBC (Bld) 2.2 % Normal 0-5 [facility] Comment on above: Performed By: #### L 500.2500, L100.0100 ####[facility] [address] [place], [address] Erythrocyte distribution width (RBC) [Ratio] 14.8 % High 11.6-14.6 [facility] Comment on above: Performed By: #### L 500.2500, L100.0100 ####[facility] [address] [place], [address] Hematocrit (Bld) [Volume fraction] 30.3 % Low 40-54 [facility] Comment on above: Performed By: #### L 500.2500, L100.0100 ####[facility] [address] [place], [address] Hemoglobin (Bld) [Mass/Vol] 9.6 g/dL Low 13.0-16.5 [facility] Comment on above: Performed By: #### L 500.2500, L100.0100 ####[facility] [address] [place], [address] IG% 1.400 High 0.0-0.9 [facility] Comment on above: Result Comment: IG% - Immature Granulocytes (promyelocytes, myelocytes andmetamyelocytes) > 1% indicates that a LEFT SHIFT is Present. Performed By: #### L 500.2500, L100.0100 ####[facility] [address] [place], [address] Lymphocytes/100 WBC (Bld) 12.8 % Low 19-41 [facility] Comment on above: Performed By: #### L 500.2500, L100.0100 ####[facility] [address] [place], [address] MCH (RBC) [Entitic mass] 30.3 pg Normal 27.0-32.0 [facility] Comment on above: Performed By: #### L 500.2500, L100.0100 ####[facility] [address] [place], [address] MCHC (RBC) [Mass/Vol] 31.7 g/dL Low 32-36 [facility] [place] Comment on above: Performed By: #### L 500.2500, L100.0100 ####[facility] [address] [place], [address] MCV (RBC) [Entitic vol] 95.6 fL High 80-94 [facility] Comment on above: Performed By: #### L 500.2500, L100.0100 ####[facility] [address] [place], [address] Monocytes/100 WBC (Bld) 8.5 % Normal 0-10 [facility] Comment on above: Performed By: #### L 500.2500, L100.0100 ####[facility] [address] [place], [address] Neutrophils/100 WBC (Bld) 74.7 % High 47-70 [facility] Comment on above: Performed By: #### L 500.2500, L100.0100 ####[facility] [address] [place], [address] Nucleated RBC (Bld) [#/Vol] 0 10*3/uL Normal 0-5 [facility] Comment on above: Performed By: #### L 500.2500, L100.0100 ####[facility] [address] [place], [address] Platelet mean volume (Bld) [Entitic vol] 11.2 fL Normal 6.2-12.0 [facility] Comment on above: Performed By: #### L 500.2500, L100.0100 ####[facility] [address] [place], [address] Platelets (Bld) [#/Vol] 260 10*3/uL Normal 150-450 [facility] Comment on above: Performed By: #### L 500.2500, L100.0100 ####[facility] [address] [place], [address] RBC (Bld) [#/Vol] 3.17 10*6/uL Low 4.6-6.2 [facility] Comment on above: Performed By: #### L 500.2500, L100.0100 ####[facility] [address] [place], [address] RDW SD 51.7 fl High 35.1-43.9 [facility] Comment on above: Performed By: #### L 500.2500, L100.0100 ####[facility] [address] [place], [address] WBC (Bld) [#/Vol] 13.9 10*3/uL High 4.4-11.0 [facility] Comment on above: Performed By: #### L 500.2500, L100.0100 ####[facility] [address] [place], [address] Basic Metabolic Profile (BMP )on 04-19-2024 BUN/CRE 14.5 RATIO Normal 10-20 [facility] Comment on above: Performed By: #### L 500.2500, L100.0100 ####[facility] [address] [place], [address] CA,Total 8.4 mg/dL Low 8.5-10.1 [facility] Comment on above: Performed By: #### L 500.2500, L100.0100 ####[facility] [address] [place], [address] Chloride [Moles/Vol] 100 mmol/L Normal 98-107 [facility] Comment on above: Performed By: #### L 500.2500, L100.0100 ####[facility] [address] [place], [address] CO2 [Moles/Vol] 25.0 mmol/L Normal 21.0-32.0 [facility] Comment on above: Performed By: #### L 500.2500, L100.0100 ####[facility] [address] [place], [address] Creatinine [Mass/Vol] 4.13 mg/dL High 0.70-1.30 [facility] [place] Comment on above: Result Comment: The validity of the calculated GFR GFRAA in patients over70 years has not been determined. Clinical correlation isessential. Performed By: #### L 500.2500, L100.0100 ####[facility] [address] [place], [address] ECRCL 14.76 ml/min Normal [facility] Comment on above: Performed By: #### L 500.2500, L100.0100 ####[facility] [address] [place], [address] EST GFR - AA 18 mL/min Low >60 [facility] Comment on above: Result Comment: Afri can [place] GFR Calc Performed By: #### L 500.2500, L100.0100 ####[facility] [address] [place], [address] GAP 9 Normal 5-15 [facility] Comment on above: Performed By: #### L 500.2500, L100.0100 ####[facility] [address] [place], [address] GFR/1.73 sq M.predicted among non-blacks MDRD (S/P/Bld) [Vol rate/Area] 15 mL/min/{1.73_m2} Low >60 [facility] Comment on above: Result Comment: Non- GFR Calc Performed By: #### L 500.2500, L100.0100 ####[facility] [address] [place], [address] Glucose [Mass/Vol] 272 mg/dL High 74-106 [facility] Comment on above: Result Comment: Gluc ose result greater than or equal to 200 mg/dLsuggests DIABETES MELLITUS per A.D.A. criteria. Performed By: #### L 500.2500, L100.0100 ####[facility] [address] [place], [address] Potassium [Moles/Vol] 4.2 mmol/L Normal 3.5-5.1 [facility] [place] Comment on above: Performed By: #### L 500.2500, L100.0100 ####[facility] [address] [place], [address] Sodium [Moles/Vol] 134 mmol/L Low 136-145 [facility] Comment on above: Performed By: #### L 500.2500, L100.0100 ####[facility] [address] [place], [address] Urea nitrogen [Mass/Vol] 60 mg/dL High 7-18 [facility] Comment on above: Performed By: #### L 500.2500, L100.0100 ####[facility] [address] [place], [address] Bedside Glucoseon 04-19-2024 FINGERSTICK GLU 261 mg/dL High 74-106 [facility] Comment on above: Result Comment: FANG GEMENT OF PATIENT CARE PER NURSING PROTOCOL Performed By: #### L 501.080 ####[facility] [address] [place], [address] FINGERSTICK GLU 292 mg/dL High 74-106 [facility] Comment on above: Result Comment: FANG GEMENT OF PATIENT CARE PER NURSING PROTOCOL Performed By: #### L 501.080 ####[facility] [address] [place], [address] FINGERSTICK GLU 298 mg/dL High 74-106 [facility] Comment on above: Result Comment: FANG GEMENT OF PATIENT CARE PER NURSING PROTOCOL Performed By: #### L 501.080 ####[facility] [address] [place], [address] FINGERSTICK GLU 247 mg/dL High 74-106 [facility] Comment on above: Result Comment: FNAG GEMENT OF PATIENT CARE PER NURSING PROTOCOL Performed By: #### L 501.080 ####[facility] [address] [place], [address] CBC W/Diff, Automatedon 11-2 Absolute Lymph 1.63 X10 3/uL Normal 0.83-4.51 [facility] Comment on above: Performed By: #### L 500.2500, L100.0100 ####[facility] [address] [place], [address] Absolute Neut 11.4 X10 3/uL High 2.0-7.7 [facility] Comment on above: Performed By: #### L 500.2500, L100.0100 ####[facility] [address] [place], [address] Basophils/100 WBC (Bld) 0.3 % Normal 0-1 [facility] Comment on above: Performed By: #### L 500.2500, L100.0100 ####[facility] [address] [place], [address] Eosinophils/100 WBC (Bld) 1.1 % Normal 0-5 [facility] Comment on above: Performed By: #### L 500.2500, L100.0100 ####[facility] [address] [place], [address] Erythrocyte distribution width (RBC) [Ratio] 15.0 % High 11.6-14.6 [facility] Comment on above: Performed By: #### L 500.2500, L100.0100 ####[facility] [address] [place], [address] Hematocrit (Bld) [Volume fraction] 30.5 % Low 40-54 [facility] Comment on above: Performed By: #### L 500.2500, L100.0100 ####[facility] [address] [place], [address] Hemoglobin (Bld) [Mass/Vol] 9.4 g/dL Low 13.0-16.5 [facility] Comment on above: Performed By: #### L 500.2500, L100.0100 ####[facility] [address] [place], [address] IG% 0.900 Normal 0.0-0.9 [facility] Comment on above: Result Comment: IG% - Immature Granulocytes (promyelocytes, myelocytes andmetamyelocytes) > 1% indicates that a LEFT SHIFT is Present. Performed By: #### L 500.2500, L100.0100 ####[facility] [address] [place], [address] Lymphocytes/100 WBC (Bld) 11.1 % Low 19-41 [facility] Comment on above: Performed By: #### L 500.2500, L100.0100 ####[facility] [address] [place], [address] MCH (RBC) [Entitic mass] 29.8 pg Normal 27.0-32.0 [facility] Comment on above: Performed By: #### L 500.2500, L100.0100 ####[facility] [address] [place], [address] MCHC (RBC) [Mass/Vol] 30.8 g/dL Low 32-36 [facility] [place] Comment on above: Performed By: #### L 500.2500, L100.0100 ####[facility] [address] [place], [address] MCV (RBC) [Entitic vol] 96.8 fL High 80-94 [facility] Comment on above: Performed By: #### L 500.2500, L100.0100 ####[facility] [address] [place], [address] Monocytes/100 WBC (Bld) 8.9 % Normal 0-10 [facility] Comment on above: Performed By: #### L 500.2500, L100.0100 ####[facility] [address] [place], [address] Neutrophils/100 WBC (Bld) 77.7 % High 47-70 [facility] Comment on above: Performed By: #### L 500.2500, L100.0100 ####[facility] [address] [place], [address] Nucleated RBC (Bld) [#/Vol] 0 10*3/uL Normal 0-5 [facility] Comment on above: Performed By: #### L 500.2500, L100.0100 ####[facility] [address] [place], [address] Platelet mean volume (Bld) [Entitic vol] 11.4 fL Normal 6.2-12.0 [facility] Comment on above: Performed By: #### L 500.2500, L100.0100 ####[facility] [address] [place], [address] Platelets (Bld) [#/Vol] 253 10*3/uL Normal 150-450 [facility] Comment on above: Performed By: #### L 500.2500, L100.0100 ####[facility] [address] [place], [address] RBC (Bld) [#/Vol] 3.15 10*6/uL Low 4.6-6.2 [facility] Comment on above: Performed By: #### L 500.2500, L100.0100 ####[facility] [address] [place], [address] RDW SD 52.9 fl High 35.1-43.9 [facility] Comment on above: Performed By: #### L 500.2500, L100.0100 ####[facility] [address] [place], [address] WBC (Bld) [#/Vol] 14.6 10*3/uL High 4.4-11.0 [facility] Comment on above: Performed By: #### L 500.2500, L100.0100 ####[facility] [address] [place], [address] Culture, Blood (WB)on 2023 CUB Blood cultures x2 fr om two different sites No growth in 5 days. Normal [facility] Comment on above: Performed By: #### M 200.1000 ####[facility] [address] [place], [address] ACT Activated Clotting Timeo n 04-18-2024 ACTk CLOT TIME 222 sec High 74-137 [facility] Comment on above: Performed By: #### L 9100.0100 ####[facility] [address] [place], [address] BUNon 04-18-2024 Urea nitrogen [Mass/Vol] 39 mg/dL High 7-18 [facility] Comment on above: Performed By: #### L 501.1105, L501.1000 ####[facility] [address] [place], [address] Basic Metabolic Profile (BMP )on 04-18-2024 BUN/CRE 16.6 RATIO Normal 10-20 [facility] Comment on above: Performed By: #### L 500.2500, L100.0100 ####[facility] [address] [place], [address] CA,Total 8.5 mg/dL Normal 8.5-10.1 [facility] Comment on above: Performed By: #### L 500.2500, L100.0100 ####[facility] [address] [place], [address] Chloride [Moles/Vol] 98 mmol/L Normal 98-107 [facility] Comment on above: Performed By: #### L 500.2500, L100.0100 ####[facility] [address] [place], [address] CO2 [Moles/Vol] 24.0 mmol/L Normal 21.0-32.0 [facility] Comment on above: Performed By: #### L 500.2500, L100.0100 ####[facility] [address] [place], [address] Creatinine [Mass/Vol] 5.00 mg/dL High 0.70-1.30 [facility] [place] Comment on above: Result Comment: The validity of the calculated GFR GFRAA in patients over70 years has not been determined. Clinical correlation isessential. Performed By: #### L 500.2500, L100.0100 ####[facility] [address] [place], [address] ECRCL 12.43 ml/min Normal [facility] Comment on above: Performed By: #### L 500.2500, L100.0100 ####[facility] [address] [place], [address] EST GFR - AA 14 mL/min Low >60 [facility] Comment on above: Result Comment: Afri can [place] GFR Calc Performed By: #### L 500.2500, L100.0100 ####[facility] [address] [place], [address] GAP 10 Normal 5-15 [facility] Comment on above: Performed By: #### L 500.2500, L100.0100 ####[facility] [address] [place], [address] GFR/1.73 sq M.predicted among non-blacks MDRD (S/P/Bld) [Vol rate/Area] 12 mL/min/{1.73_m2} Low >60 [facility] Comment on above: Result Comment: Non- GFR Calc Performed By: #### L 500.2500, L100.0100 ####[facility] [address] [place], [address] Glucose [Mass/Vol] 136 mg/dL High 74-106 [facility] Comment on above: Result Comment: Fast ing Glucose result greater than or equal to 126 mg/dLsuggests DIABETES MELLITUS per A.D.A. criteria. Performed By: #### L 500.2500, L100.0100 ####[facility] [address] [place], [address] Potassium [Moles/Vol] 4.1 mmol/L Normal 3.5-5.1 [facility] [place] Comment on above: Performed By: #### L 500.2500, L100.0100 ####[facility] [address] [place], [address] Sodium [Moles/Vol] 132 mmol/L Low 136-145 [facility] Comment on above: Performed By: #### L 500.2500, L100.0100 ####[facility] [address] [place], [address] Urea nitrogen [Mass/Vol] 83 mg/dL High 7-18 [facility] Comment on above: Performed By: #### L 500.2500, L100.0100 ####[facility] [address] [place], [address] Bedside Glucoseon 04-18-2024 FINGERSTICK GLU 289 mg/dL High 74-106 [facility] Comment on above: Result Comment: FANG GEMENT OF PATIENT CARE PER NURSING PROTOCOL Performed By: #### L 501.080 ####[facility] [address] [place], [address] FINGERSTICK GLU 106 mg/dL Normal 74-106 [facility] Comment on above: Result Comment: FANG GEMENT OF PATIENT CARE PER NURSING PROTOCOL Performed By: #### L 501.080 ####[facility] [address] [place], [address] FINGERSTICK GLU 123 mg/dL High 74-106 [facility] Comment on above: Result Comment: FANG GEMENT OF PATIENT CARE PER NURSING PROTOCOL Performed By: #### L 501.080 ####[facility] [address] [place], [address] FINGERSTICK GLU 132 mg/dL High 74-106 [facility] Comment on above: Result Comment: FANG GEMENT OF PATIENT CARE PER NURSING PROTOCOL Performed By: #### L 501.080 ####[facility] [address] [place], [address] FINGERSTICK GLU 313 mg/dL High 74-106 [facility] Comment on above: Result Comment: FANG GEMENT OF PATIENT CARE PER NURSING PROTOCOL Performed By: #### L 501.080 ####[facility] [address] [place], [address] CBC W/Diff, Automatedon 11-2 Absolute Lymph 1.73 X10 3/uL Normal 0.83-4.51 [facility] Comment on above: Performed By: #### L 500.2500, L100.0100 ####[facility] [address] [place], [address] Absolute Neut 11.4 X10 3/uL High 2.0-7.7 [facility] Comment on above: Performed By: #### L 500.2500, L100.0100 ####[facility] [address] [place], [address] Basophils/100 WBC (Bld) 0.3 % Normal 0-1 [facility] Comment on above: Performed By: #### L 500.2500, L100.0100 ####[facility] [address] [place], [address] Eosinophils/100 WBC (Bld) 1.4 % Normal 0-5 [facility] Comment on above: Performed By: #### L 500.2500, L100.0100 ####[facility] [address] [place], [address] Erythrocyte distribution width (RBC) [Ratio] 14.8 % High 11.6-14.6 [facility] Comment on above: Performed By: #### L 500.2500, L100.0100 ####[facility] [address] [place], [address] Hematocrit (Bld) [Volume fraction] 30.8 % Low 40-54 [facility] Comment on above: Performed By: #### L 500.2500, L100.0100 ####[facility] [address] [place], [address] Hemoglobin (Bld) [Mass/Vol] 9.5 g/dL Low 13.0-16.5 [facility] Comment on above: Performed By: #### L 500.2500, L100.0100 ####[facility] [address] [place], [address] IG% 0.900 Normal 0.0-0.9 [facility] Comment on above: Result Comment: IG% - Immature Granulocytes (promyelocytes, myelocytes andmetamyelocytes) > 1% indicates that a LEFT SHIFT is Present. Performed By: #### L 500.2500, L100.0100 ####[facility] [address] [place], [address] Lymphocytes/100 WBC (Bld) 11.7 % Low 19-41 [facility] Comment on above: Performed By: #### L 500.2500, L100.0100 ####[facility] [address] [place], [address] MCH (RBC) [Entitic mass] 29.8 pg Normal 27.0-32.0 [facility] Comment on above: Performed By: #### L 500.2500, L100.0100 ####[facility] [address] [place], [address] MCHC (RBC) [Mass/Vol] 30.8 g/dL Low 32-36 [facility] [place] Comment on above: Performed By: #### L 500.2500, L100.0100 ####[facility] [address] [place], [address] MCV (RBC) [Entitic vol] 96.6 fL High 80-94 [facility] Comment on above: Performed By: #### L 500.2500, L100.0100 ####[facility] [address] [place], [address] Monocytes/100 WBC (Bld) 8.4 % Normal 0-10 [facility] Comment on above: Performed By: #### L 500.2500, L100.0100 ####[facility] [address] [place], [address] Neutrophils/100 WBC (Bld) 77.3 % High 47-70 [facility] Comment on above: Performed By: #### L 500.2500, L100.0100 ####[facility] [address] [place], [address] Nucleated RBC (Bld) [#/Vol] 0 10*3/uL Normal 0-5 [facility] Comment on above: Performed By: #### L 500.2500, L100.0100 ####[facility] [address] [place], [address] Platelet mean volume (Bld) [Entitic vol] 11.7 fL Normal 6.2-12.0 [facility] Comment on above: Performed By: #### L 500.2500, L100.0100 ####[facility] [address] [place], [address] Platelets (Bld) [#/Vol] 250 10*3/uL Normal 150-450 [facility] Comment on above: Performed By: #### L 500.2500, L100.0100 ####[facility] [address] [place], [address] RBC (Bld) [#/Vol] 3.19 10*6/uL Low 4.6-6.2 [facility] Comment on above: Performed By: #### L 500.2500, L100.0100 ####[facility] [address] [place], [address] RDW SD 51.9 fl High 35.1-43.9 [facility] Comment on above: Performed By: #### L 500.2500, L100.0100 ####[facility] [address] [place], [address] WBC (Bld) [#/Vol] 14.7 10*3/uL High 4.4-11.0 [facility] Comment on above: Performed By: #### L 500.2500, L100.0100 ####[facility] [address] [place], [address] Operative Reporton Operative Report Normal [facility] Serum Creatinine AND GFRon 06-18-2023 Creatinine [Mass/Vol] 2.45 mg/dL High 0.70-1.30 [facility] [place] Comment on above: Result Comment: The validity of the calculated GFR GFRAA in patients over70 years has not been determined. Clinical correlation isessential. Performed By: #### L 501.1105, L501.1000 ####[facility] [address] [place], [address] ECRCL 24.91 ml/min Normal [facility] Comment on above: Performed By: #### L 501.1105, L501.1000 ####[facility] [address] [place], [address] EST GFR - AA 32 mL/min Low >60 [facility] Comment on above: Result Comment: Afri can [place] GFR Calc Performed By: #### L 501.1105, L501.1000 ####[facility] [address] [place], [address] GFR/1.73 sq M.predicted among non-blacks MDRD (S/P/Bld) [Vol rate/Area] 27 mL/min/{1.73_m2} Low >60 [facility] Comment on above: Result Comment: Non- GFR Calc Performed By: #### L 501.1105, L501.1000 ####[facility] [address] [place], [address] Vancomycin, Random Levelon 1 06-18-2023 VANCO, RANDOM 16.5 ug/mL High 0.0-15.0 [facility] Comment on above: Order Comment: Comme nts: WITH AM LABS PLEASE, PRIOR TO HD Result Comment: VANC OMYCIN STANDARD DRUG THERAPY: CRITICAL VALUE IS > 15.0 mg/LVANCOMYCIN HIGH INTENSITY THERAPY: CRITICAL VALUE IS > 20.0 mg/LPLEASE CONTACT PHARMACY SERVICES (#[id number]) FOR INTERPRETATIONOF RESULTS. THIS RESULT DOES NOT REPRESENT A PEAK OR TROUGHLEVEL FOR THIS DRUG. Performed By: #### L 501.8850 ####[facility] [address] [place], [address] Basic Metabolic Profile (BMP )on 04-17-2024 BUN/CRE 14.9 RATIO Normal - [facility] Comment on above: Performed By: #### L 100.0100, L500.2500 ####[facility] [address] [place], [address] CA,Total 8.7 mg/dL Normal 8.5-10.1 [facility] Comment on above: Performed By: #### L 100.0100, L500.2500 ####[facility] [address] [place], [address] Chloride [Moles/Vol] 99 mmol/L Normal 98-107 [facility] Comment on above: Performed By: #### L 100.0100, L500.2500 ####[facility] [address] [place], [address] CO2 [Moles/Vol] 27.0 mmol/L Normal 21.0-32.0 [facility] Comment on above: Performed By: #### L 100.0100, L500.2500 ####[facility] [address] [place], [address] Creatinine [Mass/Vol] 3.88 mg/dL High 0.70-1.30 [facility] [place] Comment on above: Result Comment: The validity of the calculated GFR GFRAA in patients over70 years has not been determined. Clinical correlation isessential. Performed By: #### L 100.0100, L500.2500 ####[facility] [address] [place], [address] ECRCL 15.55 ml/min Normal [facility] Comment on above: Performed By: #### L 100.0100, L500.2500 ####[facility] [address] [place], [address] EST GFR - AA 19 mL/min Low >60 [facility] Comment on above: Result Comment: Afri can [place] GFR Calc Performed By: #### L 100.0100, L500.2500 ####[facility] [address] [place], [address] GAP 8 Normal 5-15 [facility] Comment on above: Performed By: #### L 100.0100, L500.2500 ####[facility] [address] [place], [address] GFR/1.73 sq M.predicted among non-blacks MDRD (S/P/Bld) [Vol rate/Area] 16 mL/min/{1.73_m2} Low >60 [facility] Comment on above: Result Comment: Non- GFR Calc Performed By: #### L 100.0100, L500.2500 ####[facility] [address] [place], [address] Glucose [Mass/Vol] 139 mg/dL High 74-106 [facility] Comment on above: Result Comment: Fast ing Glucose result greater than or equal to 126 mg/dLsuggests DIABETES MELLITUS per A.D.A. criteria. Performed By: #### L 100.0100, L500.2500 ####[facility] [address] [place], [address] Potassium [Moles/Vol] 4.0 mmol/L Normal 3.5-5.1 [facility] [place] Comment on above: Performed By: #### L 100.0100, L500.2500 ####[facility] [address] [place], [address] Sodium [Moles/Vol] 133 mmol/L Low 136-145 [facility] Comment on above: Performed By: #### L 100.0100, L500.2500 ####[facility] [address] [place], [address] Urea nitrogen [Mass/Vol] 58 mg/dL High 7-18 [facility] Comment on above: Performed By: #### L 100.0100, L500.2500 ####[facility] [address] [place], [address] Bedside Glucoseon 04-17-2024 FINGERSTICK GLU 337 mg/dL High 74-106 [facility] Comment on above: Result Comment: FANG GEMENT OF PATIENT CARE PER NURSING PROTOCOL Performed By: #### L 501.080 ####[facility] [address] [place], [address] FINGERSTICK GLU 219 mg/dL High 74-106 [facility] Comment on above: Result Comment: FANG GEMENT OF PATIENT CARE PER NURSING PROTOCOL Performed By: #### L 501.080 ####[facility] [address] [place], [address] FINGERSTICK GLU 139 mg/dL High 74-106 [facility] Comment on above: Result Comment: FANG GEMENT OF PATIENT CARE PER NURSING PROTOCOL Performed By: #### L 501.080 ####[facility] [address] [place], [address] CBC W/Diff, Automatedon - Absolute Lymph 2.01 X10 3/uL Normal 0.83-4.51 [facility] Comment on above: Performed By: #### L 100.0100, L500.2500 ####[facility] [address] [place], [address] Absolute Neut 11.4 X10 3/uL High 2.0-7.7 [facility] Comment on above: Performed By: #### L 100.0100, L500.2500 ####[facility] [address] [place], [address] Basophils/100 WBC (Bld) 0.2 % Normal 0-1 [facility] Comment on above: Performed By: #### L 100.0100, L500.2500 ####[facility] [address] [place], [address] Eosinophils/100 WBC (Bld) 0.9 % Normal 0-5 [facility] Comment on above: Performed By: #### L 100.0100, L500.2500 ####[facility] [address] [place], [address] Erythrocyte distribution width (RBC) [Ratio] 14.8 % High 11.6-14.6 [facility] Comment on above: Performed By: #### L 100.0100, L500.2500 ####[facility] [address] [place], [address] Hematocrit (Bld) [Volume fraction] 32.2 % Low 40-54 [facility] Comment on above: Performed By: #### L 100.0100, L500.2500 ####[facility] [address] [place], [address] Hemoglobin (Bld) [Mass/Vol] 9.7 g/dL Low 13.0-16.5 [facility] Comment on above: Performed By: #### L 100.0100, L500.2500 ####[facility] [address] [place], [address] IG% 0.500 Normal 0.0-0.9 [facility] Comment on above: Result Comment: IG% - Immature Granulocytes (promyelocytes, myelocytes andmetamyelocytes) > 1% indicates that a LEFT SHIFT is Present. Performed By: #### L 100.0100, L500.2500 ####[facility] [address] [place], [address] Lymphocytes/100 WBC (Bld) 13.4 % Low 19-41 [facility] Comment on above: Performed By: #### L 100.0100, L500.2500 ####[facility] [address] [place], [address] MCH (RBC) [Entitic mass] 29.6 pg Normal 27.0-32.0 [facility] Comment on above: Performed By: #### L 100.0100, L500.2500 ####[facility] [address] [place], [address] MCHC (RBC) [Mass/Vol] 30.1 g/dL Low 32-36 [facility] [place] Comment on above: Performed By: #### L 100.0100, L500.2500 ####[facility] [address] [place], [address] MCV (RBC) [Entitic vol] 98.2 fL High 80-94 [facility] Comment on above: Performed By: #### L 100.0100, L500.2500 ####[facility] [address] [place], [address] Monocytes/100 WBC (Bld) 9.3 % Normal 0-10 [facility] Comment on above: Performed By: #### L 100.0100, L500.2500 ####[facility] [address] [place], [address] Neutrophils/100 WBC (Bld) 75.7 % High 47-70 [facility] Comment on above: Performed By: #### L 100.0100, L500.2500 ####[facility] [address] [place], [address] Nucleated RBC (Bld) [#/Vol] 0 10*3/uL Normal 0-5 [facility] Comment on above: Performed By: #### L 100.0100, L500.2500 ####[facility] [address] [place], [address] Platelet mean volume (Bld) [Entitic vol] 11.7 fL Normal 6.2-12.0 [facility] Comment on above: Performed By: #### L 100.0100, L500.2500 ####[facility] [address] [place], [address] Platelets (Bld) [#/Vol] 232 10*3/uL Normal 150-450 [facility] Comment on above: Performed By: #### L 100.0100, L500.2500 ####[facility] [address] [place], [address] RBC (Bld) [#/Vol] 3.28 10*6/uL Low 4.6-6.2 [facility] Comment on above: Performed By: #### L 100.0100, L500.2500 ####[facility] [address] [place], [address] RDW SD 53.6 fl High 35.1-43.9 [facility] Comment on above: Performed By: #### L 100.0100, L500.2500 ####[facility] [address] [place], [address] WBC (Bld) [#/Vol] 15.0 10*3/uL High 4.4-11.0 [facility] Comment on above: Performed By: #### L 100.0100, L500.2500 ####[facility] [address] [place], [address] 12 Lead EKGon 04-16-2024 12 Lead EKG Normal [facility] Basic Metabolic Profile (BMP )on 04-16-2024 BUN/CRE 12.0 RATIO Normal 10-20 [facility] Comment on above: Performed By: #### L 100.0100, L500.2500 ####[facility] [address] [place], [address] CA,Total 8.6 mg/dL Normal 8.5-10.1 [facility] Comment on above: Performed By: #### L 100.0100, L500.2500 ####[facility] [address] [place], [address] Chloride [Moles/Vol] 96 mmol/L Low 98-107 [facility] Comment on above: Performed By: #### L 100.0100, L500.2500 ####[facility] [address] [place], [address] CO2 [Moles/Vol] 28.0 mmol/L Normal 21.0-32.0 [facility] Comment on above: Performed By: #### L 100.0100, L500.2500 ####[facility] [address] [place], [address] Creatinine [Mass/Vol] 4.76 mg/dL High 0.70-1.30 [facility] [place] Comment on above: Result Comment: The validity of the calculated GFR GFRAA in patients over70 years has not been determined. Clinical correlation isessential. Performed By: #### L 100.0100, L500.2500 ####[facility] [address] [place], [address] ECRCL 12.86 ml/min Normal [facility] Comment on above: Performed By: #### L 100.0100, L500.2500 ####[facility] [address] [place], [address] EST GFR - AA 15 mL/min Low >60 [facility] Comment on above: Result Comment: Afri can [place] GFR Calc Performed By: #### L 100.0100, L500.2500 ####[facility] [address] [place], [address] GAP 9 Normal 5-15 [facility] Comment on above: Performed By: #### L 100.0100, L500.2500 ####[facility] [address] [place], [address] GFR/1.73 sq M.predicted among non-blacks MDRD (S/P/Bld) [Vol rate/Area] 12 mL/min/{1.73_m2} Low >60 [facility] Comment on above: Result Comment: Non- GFR Calc Performed By: #### L 100.0100, L500.2500 ####[facility] [address] [place], [address] Glucose [Mass/Vol] 148 mg/dL High 74-106 [facility] Comment on above: Result Comment: Fast ing Glucose result greater than or equal to 126 mg/dLsuggests DIABETES MELLITUS per A.D.A. criteria. Performed By: #### L 100.0100, L500.2500 ####[facility] [address] [place], [address] Potassium [Moles/Vol] 4.1 mmol/L Normal 3.5-5.1 [facility] [place] Comment on above: Performed By: #### L 100.0100, L500.2500 ####[facility] [address] [place], [address] Sodium [Moles/Vol] 133 mmol/L Low 136-145 [facility] Comment on above: Performed By: #### L 100.0100, L500.2500 ####[facility] [address] [place], [address] Urea nitrogen [Mass/Vol] 57 mg/dL High 7-18 [facility] Comment on above: Performed By: #### L 100.0100, L500.2500 ####[facility] [address] [place], [address] Bedside Glucoseon 04-16-2024 FINGERSTICK GLU 273 mg/dL High 74-106 [facility] Comment on above: Result Comment: FANG GEMENT OF PATIENT CARE PER NURSING PROTOCOL Performed By: #### L 501.080 ####[facility] [address] [place], [address] FINGERSTICK GLU 266 mg/dL High 74-106 [facility] Comment on above: Result Comment: FANG GEMENT OF PATIENT CARE PER NURSING PROTOCOL Performed By: #### L 501.080 ####[facility] [address] [place], [address] FINGERSTICK GLU 142 mg/dL High 74-106 [facility] Comment on above: Result Comment: FANG VAZQUEZ OF PATIENT CARE PER NURSING PROTOCOL Performed By: #### L 501.080 ####[facility] [address] [place], [address] CBC W/Diff, Automatedon 11-2 -2023 Absolute Lymph 1.44 X10 3/uL Normal 0.83-4.51 [facility] Comment on above: Performed By: #### L 100.0100, L500.2500 ####[facility] [address] [place], [address] Absolute Neut 10.4 X10 3/uL High 2.0-7.7 [facility] Comment on above: Performed By: #### L 100.0100, L500.2500 ####[facility] [address] [place], [address] Basophils/100 WBC (Bld) 0.2 % Normal 0-1 [facility] Comment on above: Performed By: #### L 100.0100, L500.2500 ####[facility] [address] [place], [address] Eosinophils/100 WBC (Bld) 0.5 % Normal 0-5 [facility] Comment on above: Performed By: #### L 100.0100, L500.2500 ####[facility] [address] [place], [address] Erythrocyte distribution width (RBC) [Ratio] 14.9 % High 11.6-14.6 [facility] Comment on above: Performed By: #### L 100.0100, L500.2500 ####[facility] [address] [place], [address] Hematocrit (Bld) [Volume fraction] 32.4 % Low 40-54 [facility] Comment on above: Performed By: #### L 100.0100, L500.2500 ####[facility] [address] [place], [address] Hemoglobin (Bld) [Mass/Vol] 10.0 g/dL Low 13.0-16.5 [facility] Comment on above: Performed By: #### L 100.0100, L500.2500 ####[facility] [address] [place], [address] IG% 0.400 Normal 0.0-0.9 [facility] Comment on above: Result Comment: IG% - Immature Granulocytes (promyelocytes, myelocytes andmetamyelocytes) > 1% indicates that a LEFT SHIFT is Present. Performed By: #### L 100.0100, L500.2500 ####[facility] [address] [place], [address] Lymphocytes/100 WBC (Bld) 10.9 % Low 19-41 [facility] Comment on above: Performed By: #### L 100.0100, L500.2500 ####[facility] [address] [place], [address] MCH (RBC) [Entitic mass] 29.9 pg Normal 27.0-32.0 [facility] Comment on above: Performed By: #### L 100.0100, L500.2500 ####[facility] [address] [place], [address] MCHC (RBC) [Mass/Vol] 30.9 g/dL Low 32-36 [facility] Comment on above: Performed By: #### L 100.0100, L500.2500 ####[facility] [address] [place], [address] MCV (RBC) [Entitic vol] 97.0 fL High 80-94 [facility] Comment on above: Performed By: #### L 100.0100, L500.2500 ####[facility] [address] [place], [address] Monocytes/100 WBC (Bld) 9.6 % Normal 0-10 [facility] Comment on above: Performed By: #### L 100.0100, L500.2500 ####[facility] [address] [place], [address] Neutrophils/100 WBC (Bld) 78.4 % High 47-70 [facility] Comment on above: Performed By: #### L 100.0100, L500.2500 ####[facility] [address] [place], [address] Nucleated RBC (Bld) [#/Vol] 0 10*3/uL Normal 0-5 [facility] Comment on above: Performed By: #### L 100.0100, L500.2500 ####[facility] [address] [place], [address] Platelet mean volume (Bld) [Entitic vol] 11.1 fL Normal 6.2-12.0 [facility] Comment on above: Performed By: #### L 100.0100, L500.2500 ####[facility] [address] [place], [address] Platelets (Bld) [#/Vol] 223 10*3/uL Normal 150-450 [facility] Comment on above: Performed By: #### L 100.0100, L500.2500 ####[facility] [address] [place], [address] RBC (Bld) [#/Vol] 3.34 10*6/uL Low 4.6-6.2 [facility] Comment on above: Performed By: #### L 100.0100, L500.2500 ####[facility] [address] [place], [address] RDW SD 52.6 fl High 35.1-43.9 [facility] Comment on above: Performed By: #### L 100.0100, L500.2500 ####[facility] [address] [place], [address] WBC (Bld) [#/Vol] 13.3 10*3/uL High 4.4-11.0 [facility] Comment on above: Performed By: #### L 100.0100, L500.2500 ####[facility] [address] [place], [address] Consultation - Infectious Dx on 04-16-2024 Consultation - Infectious Dx Normal [facility] Consultation - Nephrologyon 04-16-2024 Consultation - Nephrology Normal [facility] Consultation - Surgicalon Consultation - Surgical Normal [facility] Gram Stainon 04-16-2024 GS Gram Stain 2+ Gram positive cocci 2+ Red Blood Cells 2+ Gram variable yessy No Epithelial cells Normal [facility] Comment on above: Performed By: #### M 100.4001, M100.2000, M100.3000 ####[facility] [address] [place], [address] Hemoglobin A1con 04-16-2024 HbA1c (Bld) [Mass fraction] 9.0 % High 3.8-5.6 [facility] Comment on above: Result Comment: Norm al < 5.7 % Prediabetic 5.7 - 6.4 % Diabetic >or= 6.5 % Please note range changes. Performed By: #### L 501.9985 ####[facility] [address] [place], [address] Lower Ext/No Jt/w/oon 2023 Lower Ext/No Jt/w/o Normal [facility] Bedside Glucoseon 04-15-2024 FINGERSTICK GLU 262 mg/dL High 74-106 [facility] Comment on above: Result Comment: FANG VAZQUEZ OF PATIENT CARE PER NURSING PROTOCOL Performed By: #### L 501.080 ####[facility] [address] [place], [address] FINGERSTICK GLU 188 mg/dL High 74-106 [facility] Comment on above: Result Comment: FANG GEMENT OF PATIENT CARE PER NURSING PROTOCOL Performed By: #### L 501.080 ####[facility] [address] [place], [address] FINGERSTICK GLU 114 mg/dL High 74-106 [facility] Comment on above: Result Comment: FANG GEMENT OF PATIENT CARE PER NURSING PROTOCOL Performed By: #### L 501.080 ####[facility] [address] [place], [address] FINGERSTICK GLU 117 mg/dL High 74-106 [facility] Comment on above: Result Comment: FANG GEMENT OF PATIENT CARE PER NURSING PROTOCOL Performed By: #### L 501.080 ####[facility] [address] [place], [address] CBC W/Diff, Automatedon 11-2 Absolute Lymph 1.56 X10 3/uL Normal 0.83-4.51 [facility] Comment on above: Performed By: #### L 500.4050, L501.9520, L300.3900, L100.0100 ####[facility] [address] [place], [address] Absolute Neut 9.4 X10 3/uL High 2.0-7.7 [facility] Comment on above: Performed By: #### L 500.4050, L501.9520, L300.3900, L100.0100 ####[facility] [address] [place], [address] Basophils/100 WBC (Bld) 0.2 % Normal 0-1 [facility] Comment on above: Performed By: #### L 500.4050, L501.9520, L300.3900, L100.0100 ####[facility] [address] [place], [address] Eosinophils/100 WBC (Bld) 0.3 % Normal 0-5 [facility] Comment on above: Performed By: #### L 500.4050, L501.9520, L300.3900, L100.0100 ####[facility] [address] [place], [address] Erythrocyte distribution width (RBC) [Ratio] 15.0 % High 11.6-14.6 [facility] Comment on above: Performed By: #### L 500.4050, L501.9520, L300.3900, L100.0100 ####[facility] [address] [place], [address] Hematocrit (Bld) [Volume fraction] 31.9 % Low 40-54 [facility] Comment on above: Performed By: #### L 500.4050, L501.9520, L300.3900, L100.0100 ####[facility] [address] [place], [address] Hemoglobin (Bld) [Mass/Vol] 9.8 g/dL Low 13.0-16.5 [facility] Comment on above: Performed By: #### L 500.4050, L501.9520, L300.3900, L100.0100 ####[facility] [address] [place], [address] IG% 0.500 Normal 0.0-0.9 [facility] Comment on above: Result Comment: IG% - Immature Granulocytes (promyelocytes, myelocytes andmetamyelocytes) > 1% indicates that a LEFT SHIFT is Present. Performed By: #### L 500.4050, L501.9520, L300.3900, L100.0100 ####[facility] [address] [place], [address] Lymphocytes/100 WBC (Bld) 12.7 % Low 19-41 [facility] Comment on above: Performed By: #### L 500.4050, L501.9520, L300.3900, L100.0100 ####[facility] [address] [place], [address] MCH (RBC) [Entitic mass] 29.8 pg Normal 27.0-32.0 [facility] Comment on above: Performed By: #### L 500.4050, L501.9520, L300.3900, L100.0100 ####[facility] [address] [place], [address] MCHC (RBC) [Mass/Vol] 30.7 g/dL Low 32-36 [facility] Comment on above: Performed By: #### L 500.4050, L501.9520, L300.3900, L100.0100 ####[facility] [address] [place], [address] MCV (RBC) [Entitic vol] 97.0 fL High 80-94 [facility] Comment on above: Performed By: #### L 500.4050, L501.9520, L300.3900, L100.0100 ####[facility] [address] [place], [address] Monocytes/100 WBC (Bld) 9.6 % Normal 0-10 [facility] Comment on above: Performed By: #### L 500.4050, L501.9520, L300.3900, L100.0100 ####[facility] [address] [place], [address] Neutrophils/100 WBC (Bld) 76.7 % High 47-70 [facility] Comment on above: Performed By: #### L 500.4050, L501.9520, L300.3900, L100.0100 ####[facility] [address] [place], [address] Nucleated RBC (Bld) [#/Vol] 0 10*3/uL Normal 0-5 [facility] Comment on above: Performed By: #### L 500.4050, L501.9520, L300.3900, L100.0100 ####[facility] [address] [place], [address] Platelet mean volume (Bld) [Entitic vol] 11.1 fL Normal 6.2-12.0 [facility] Comment on above: Performed By: #### L 500.4050, L501.9520, L300.3900, L100.0100 ####[facility] [address] [place], [address] Platelets (Bld) [#/Vol] 238 10*3/uL Normal 150-450 [facility] Comment on above: Performed By: #### L 500.4050, L501.9520, L300.3900, L100.0100 ####[facility] [address] [place], [address] RBC (Bld) [#/Vol] 3.29 10*6/uL Low 4.6-6.2 [facility] Comment on above: Performed By: #### L 500.4050, L501.9520, L300.3900, L100.0100 ####[facility] [address] [place], [address] RDW SD 52.9 fl High 35.1-43.9 [facility] Comment on above: Performed By: #### L 500.4050, L501.9520, L300.3900, L100.0100 ####[facility] [address] [place], [address] WBC (Bld) [#/Vol] 12.2 10*3/uL High 4.4-11.0 [facility] Comment on above: Performed By: #### L 500.4050, L501.9520, L300.3900, L100.0100 ####[facility] [address] [place], [address] CRPon 04-15-2024 C-REACTIVE PROT 232.00 mg/L High 0.0-3.0 [facility] Comment on above: Order Comment: Comme nts: Add onto previous labs if possible Result Comment: C-Re active Protein (CRP) provides useful information for thediagnosis, therapy and monitoring of inflammatory processesand associated diseases. For the evaluation of Relative Riskfor Cardiovascular Disease, a High Sensitivity CRP (HSCRP)should be ordered. Performed By: #### L 501.6710, L101.9900 ####[facility] [address] [place], [address] Comprehensive Metabolic Prof ilon 04-15-2024 Albumin [Mass/Vol] 2.3 g/dL Low 3.2-5.0 [facility] Comment on above: Performed By: #### L 500.4050, L501.9520, L300.3900, L100.0100 ####[facility] [address] [place], [address] Albumin/Globulin [Mass ratio] 0.5 {ratio} Low 0.9-2.4 [facility] Comment on above: Performed By: #### L 500.4050, L501.9520, L300.3900, L100.0100 ####[facility] [address] [place], [address] ALK P 49 U/L Normal 45-117 [facility] Comment on above: Performed By: #### L 500.4050, L501.9520, L300.3900, L100.0100 ####[facility] [address] [place], [address] ALT [Catalytic activity/Vol] 13 U/L Low 16-61 [facility] Comment on above: Performed By: #### L 500.4050, L501.9520, L300.3900, L100.0100 ####[facility] [address] [place], [address] AST [Catalytic activity/Vol] 9 U/L Low 15-37 [facility] Comment on above: Performed By: #### L 500.4050, L501.9520, L300.3900, L100.0100 ####[facility] [address] [place], [address] Bilirubin [Mass/Vol] 0.50 mg/dL Normal 0.20-1.00 [facility] Comment on above: Result Comment: For patients on eltrombopag therapy, use of Dimension Broadbent TBIL is not recommended. Performed By: #### L 500.4050, L501.9520, L300.3900, L100.0100 ####[facility] [address] [place], [address] BUN/CRE 10.6 RATIO Normal 10-20 [facility] Comment on above: Performed By: #### L 500.4050, L501.9520, L300.3900, L100.0100 ####[facility] [address] [place], [address] CA,Total 8.4 mg/dL Low 8.5-10.1 [facility] Comment on above: Performed By: #### L 500.4050, L501.9520, L300.3900, L100.0100 ####[facility] [address] [place], [address] Chloride [Moles/Vol] 97 mmol/L Low 98-107 [facility] Comment on above: Performed By: #### L 500.4050, L501.9520, L300.3900, L100.0100 ####[facility] [address] [place], [address] CO2 [Moles/Vol] 28.0 mmol/L Normal 21.0-32.0 [facility] Comment on above: Performed By: #### L 500.4050, L501.9520, L300.3900, L100.0100 ####[facility] [address] [place], [address] Creatinine [Mass/Vol] 3.79 mg/dL High 0.70-1.30 [facility] Comment on above: Result Comment: The validity of the calculated GFR GFRAA in patients over70 years has not been determined. Clinical correlation isessential. Performed By: #### L 500.4050, L501.9520, L300.3900, L100.0100 ####[facility] [address] [place], [address] ECRCL 16.15 ml/min Normal [facility] Comment on above: Performed By: #### L 500.4050, L501.9520, L300.3900, L100.0100 ####[facility] [address] [place], [address] EST GFR - AA 20 mL/min Low >60 [facility] Comment on above: Result Comment: Afri can [place] GFR Calc Performed By: #### L 500.4050, L501.9520, L300.3900, L100.0100 ####[facility] [address] [place], [address] GAP 10 Normal 5-15 [facility] Comment on above: Performed By: #### L 500.4050, L501.9520, L300.3900, L100.0100 ####[facility] [address] [place], [address] GFR/1.73 sq M.predicted among non-blacks MDRD (S/P/Bld) [Vol rate/Area] 16 mL/min/{1.73_m2} Low >60 [facility] Comment on above: Result Comment: Non- GFR Calc Performed By: #### L 500.4050, L501.9520, L300.3900, L100.0100 ####[facility] [address] [place], [address] Globulin (S) [Mass/Vol] 4.7 g/dL High 2.2-4.2 [facility] Comment on above: Performed By: #### L 500.4050, L501.9520, L300.3900, L100.0100 ####[facility] [address] [place], [address] Glucose [Mass/Vol] 124 mg/dL High 74-106 [facility] Comment on above: Result Comment: Fast ing Glucose result from 100 to 125 mg/dLsuggests IMPAIRED HOMEOSTASIS per A.D.A. criteria. Performed By: #### L 500.4050, L501.9520, L300.3900, L100.0100 ####[facility] [address] [place], [address] Potassium [Moles/Vol] 3.8 mmol/L Normal 3.5-5.1 [facility] Comment on above: Performed By: #### L 500.4050, L501.9520, L300.3900, L100.0100 ####[facility] [address] [place], [address] Sodium [Moles/Vol] 135 mmol/L Low 136-145 [facility] Comment on above: Performed By: #### L 500.4050, L501.9520, L300.3900, L100.0100 ####[facility] [address] [place], [address] T PROT 7.0 g/dL Normal 6.4-8.2 [facility] Comment on above: Performed By: #### L 500.4050, L501.9520, L300.3900, L100.0100 ####[facility] [address] [place], [address] Urea nitrogen [Mass/Vol] 40 mg/dL High 7-18 [facility] Comment on above: Performed By: #### L 500.4050, L501.9520, L300.3900, L100.0100 ####[facility] [address] [place], [address] Erythrocyte Sed Rateon 04-15 SED RATE 68 mm/hr High 0-20 [facility] Comment on above: Order Comment: Comme nts: Add onto previous labs if possible Performed By: #### L 501.6710, L101.9900 ####[facility] [address] [place], [address] Gram Stainon 04-15-2024 GS Positive Normal [facility] Comment on above: Performed By: #### M 100.2000, M100.3000 ####[facility] [address] [place], [address] M8200.1075on 04-15-2024 M8200.1075 Pending MRSA PCR MRSA NEGATIVE STAPH. AUREUS PCR STAPH. AUREUS NEGATIVE [facility] Comment on above: Performed By: #### M 8200.1075 ####[facility] [address] [place], [address] Prothrombin Time w/INRon INR Coag (PPP) [Relative time] 1.4 {INR} Normal [facility] Comment on above: Performed By: #### L 500.4050, L501.9520, L300.3900, L100.0100 ####[facility] [address] [place], [address] PT Coag (PPP) [Time] 16.7 s High 11.7-14.9 [facility] Comment on above: Performed By: #### L 500.4050, L501.9520, L300.3900, L100.0100 ####[facility] [address] [place], [address] Thyroid Stim Hormone (TSH)on 04-15-2024 TSH 0.665 uIU/mL Normal 0.358-3.740 [facility] Comment on above: Performed By: #### L 500.4050, L501.9520, L300.3900, L100.0100 ####[facility] [address] [place], [address] Ankle Brachial Indexon 04-14 Ankle Brachial Index Normal [facility] Bedside Glucoseon 04-14-2024 FINGERSTICK GLU 310 mg/dL High 74-106 [facility] Comment on above: Result Comment: FANG GEMENT OF PATIENT CARE PER NURSING PROTOCOL Performed By: #### L 501.080 ####[facility] [address] [place], [address] FINGERSTICK GLU 190 mg/dL High 74-106 [facility] Comment on above: Result Comment: FANG GEMENT OF PATIENT CARE PER NURSING PROTOCOL Performed By: #### L 501.080 ####[facility] [address] [place], [address] CBC W/Diff, Automatedon 03-24 Absolute Lymph 1.36 X10 3/uL Normal 0.83-4.51 [facility] Comment on above: Performed By: #### L 503.6005, L500.4050, L100.0100 ####[facility] [address] [place], [address] Absolute Neut 11.3 X10 3/uL High 2.0-7.7 [facility] Comment on above: Performed By: #### L 503.6005, L500.4050, L100.0100 ####[facility] [address] [place], [address] Basophils/100 WBC (Bld) 0.3 % Normal 0-1 [facility] Comment on above: Performed By: #### L 503.6005, L500.4050, L100.0100 ####[facility] [address] [place], [address] Eosinophils/100 WBC (Bld) 0.3 % Normal 0-5 [facility] Comment on above: Performed By: #### L 503.6005, L500.4050, L100.0100 ####[facility] [address] [place], [address] Erythrocyte distribution width (RBC) [Ratio] 15.1 % High 11.6-14.6 [facility] Comment on above: Performed By: #### L 503.6005, L500.4050, L100.0100 ####[facility] [address] [place], [address] Hematocrit (Bld) [Volume fraction] 35.3 % Low 40-54 [facility] Comment on above: Performed By: #### L 503.6005, L500.4050, L100.0100 ####[facility] [address] [place], [address] Hemoglobin (Bld) [Mass/Vol] 11.3 g/dL Low 13.0-16.5 [facility] Comment on above: Performed By: #### L 503.6005, L500.4050, L100.0100 ####[facility] [address] [place], [address] IG% 0.600 Normal 0.0-0.9 [facility] Comment on above: Result Comment: IG% - Immature Granulocytes (promyelocytes, myelocytes andmetamyelocytes) > 1% indicates that a LEFT SHIFT is Present. Performed By: #### L 503.6005, L500.4050, L100.0100 ####[facility] [address] [place], [address] Lymphocytes/100 WBC (Bld) 9.7 % Low 19-41 [facility] Comment on above: Performed By: #### L 503.6005, L500.4050, L100.0100 ####[facility] [address] [place], [address] MCH (RBC) [Entitic mass] 30.5 pg Normal 27.0-32.0 [facility] Comment on above: Performed By: #### L 503.6005, L500.4050, L100.0100 ####[facility] [address] [place], [address] MCHC (RBC) [Mass/Vol] 32.0 g/dL Normal 32-36 [facility] Comment on above: Performed By: #### L 503.6005, L500.4050, L100.0100 ####[facility] [address] [place], [address] MCV (RBC) [Entitic vol] 95.1 fL High 80-94 [facility] Comment on above: Performed By: #### L 503.6005, L500.4050, L100.0100 ####[facility] [address] [place], [address] Monocytes/100 WBC (Bld) 8.6 % Normal 0-10 [facility] Comment on above: Performed By: #### L 503.6005, L500.4050, L100.0100 ####[facility] [address] [place], [address] Neutrophils/100 WBC (Bld) 80.5 % High 47-70 [facility] Comment on above: Performed By: #### L 503.6005, L500.4050, L100.0100 ####[facility] [address] [place], [address] Nucleated RBC (Bld) [#/Vol] 0 10*3/uL Normal 0-5 [facility] Comment on above: Performed By: #### L 503.6005, L500.4050, L100.0100 ####[facility] [address] [place], [address] Platelet mean volume (Bld) [Entitic vol] 10.8 fL Normal 6.2-12.0 [facility] Comment on above: Performed By: #### L 503.6005, L500.4050, L100.0100 ####[facility] [address] [place], [address] Platelets (Bld) [#/Vol] 255 10*3/uL Normal 150-450 [facility] Comment on above: Performed By: #### L 503.6005, L500.4050, L100.0100 ####[facility] [address] [place], [address] RBC (Bld) [#/Vol] 3.71 10*6/uL Low 4.6-6.2 [facility] Comment on above: Performed By: #### L 503.6005, L500.4050, L100.0100 ####[facility] [address] [place], [address] RDW SD 52.1 fl High 35.1-43.9 [facility] Comment on above: Performed By: #### L 503.6005, L500.4050, L100.0100 ####[facility] [address] [place], [address] WBC (Bld) [#/Vol] 14.0 10*3/uL High 4.4-11.0 [facility] Comment on above: Performed By: #### L 503.6005, L500.4050, L100.0100 ####[facility] [address] [place], [address] CNOVon 04-14-2024 CNOV Normal [facility] CRPon 04-14-2024 C-REACTIVE PROT 267.00 mg/L High 0.0-3.0 [facility] Comment on above: Result Comment: C-Re active Protein (CRP) provides useful information for thediagnosis, therapy and monitoring of inflammatory processesand associated diseases. For the evaluation of Relative Riskfor Cardiovascular Disease, a High Sensitivity CRP (HSCRP)should be ordered. Performed By: #### L 101.9900, L501.6710 ####[facility] [address] [place], [address] Comprehensive Metabolic Prof ilon 04-14-2024 Albumin [Mass/Vol] 2.7 g/dL Low 3.2-5.0 [facility] Comment on above: Performed By: #### L 503.6005, L500.4050, L100.0100 ####[facility] [address] [place], [address] Albumin/Globulin [Mass ratio] 0.5 {ratio} Low 0.9-2.4 [facility] Comment on above: Performed By: #### L 503.6005, L500.4050, L100.0100 ####[facility] [address] [place], [address] ALK P 62 U/L Normal 45-117 [facility] Comment on above: Performed By: #### L 503.6005, L500.4050, L100.0100 ####[facility] [address] [place], [address] ALT [Catalytic activity/Vol] 11 U/L Low 16-61 [facility] Comment on above: Performed By: #### L 503.6005, L500.4050, L100.0100 ####[facility] [address] [place], [address] AST [Catalytic activity/Vol] 15 U/L Normal 15-37 [facility] Comment on above: Performed By: #### L 503.6005, L500.4050, L100.0100 ####[facility] [address] [place], [address] Bilirubin [Mass/Vol] 0.50 mg/dL Normal 0.20-1.00 [facility] Comment on above: Result Comment: For patients on eltrombopag therapy, use of Dimension Broadbent TBIL is not recommended. Performed By: #### L 503.6005, L500.4050, L100.0100 ####[facility] [address] [place], [address] BUN/CRE 9.5 RATIO Low 10-20 [facility] Comment on above: Performed By: #### L 503.6005, L500.4050, L100.0100 ####[facility] [address] [place], [address] CA,Total 8.6 mg/dL Normal 8.5-10.1 [facility] Comment on above: Performed By: #### L 503.6005, L500.4050, L100.0100 ####[facility] [address] [place], [address] Chloride [Moles/Vol] 96 mmol/L Low 98-107 [facility] Comment on above: Performed By: #### L 503.6005, L500.4050, L100.0100 ####[facility] [address] [place], [address] CO2 [Moles/Vol] 32.0 mmol/L Normal 21.0-32.0 [facility] Comment on above: Performed By: #### L 503.6005, L500.4050, L100.0100 ####[facility] [address] [place], [address] Creatinine [Mass/Vol] 2.84 mg/dL High 0.70-1.30 [facility] Comment on above: Result Comment: The validity of the calculated GFR GFRAA in patients over70 years has not been determined. Clinical correlation isessential. Performed By: #### L 503.6005, L500.4050, L100.0100 ####[facility] [address] [place], [address] ECRCL 21.22 ml/min Normal [facility] Comment on above: Performed By: #### L 503.6005, L500.4050, L100.0100 ####[facility] [address] [place], [address] EST GFR - AA 27 mL/min Low >60 [facility] Comment on above: Result Comment: Afri can [place] GFR Calc Performed By: #### L 503.6005, L500.4050, L100.0100 ####[facility] [address] [place], [address] GAP 8 Normal 5-15 [facility] Comment on above: Performed By: #### L 503.6005, L500.4050, L100.0100 ####[facility] [address] [place], [address] GFR/1.73 sq M.predicted among non-blacks MDRD (S/P/Bld) [Vol rate/Area] 23 mL/min/{1.73_m2} Low >60 [facility] Comment on above: Result Comment: Non- GFR Calc Performed By: #### L 503.6005, L500.4050, L100.0100 ####[facility] [address] [place], [address] Globulin (S) [Mass/Vol] 5.3 g/dL High 2.2-4.2 [facility] Comment on above: Performed By: #### L 503.6005, L500.4050, L100.0100 ####[facility] [address] [place], [address] Glucose [Mass/Vol] 130 mg/dL High 74-106 [facility] Comment on above: Result Comment: Fast ing Glucose result greater than or equal to 126 mg/dLsuggests DIABETES MELLITUS per A.D.A. criteria. Performed By: #### L 503.6005, L500.4050, L100.0100 ####[facility] [address] [place], [address] Potassium [Moles/Vol] 3.7 mmol/L Normal 3.5-5.1 [facility] Comment on above: Performed By: #### L 503.6005, L500.4050, L100.0100 ####[facility] [address] [place], [address] Sodium [Moles/Vol] 136 mmol/L Normal 136-145 [facility] Comment on above: Performed By: #### L 503.6005, L500.4050, L100.0100 ####[facility] [address] [place], [address] T PROT 8.0 g/dL Normal 6.4-8.2 [facility] Comment on above: Performed By: #### L 503.6005, L500.4050, L100.0100 ####[facility] [address] [place], [address] Urea nitrogen [Mass/Vol] 27 mg/dL High 7-18 [facility] Comment on above: Performed By: #### L 503.6005, L500.4050, L100.0100 ####[facility] [address] [place], [address] Emergency Department Summary on 04-14-2024 Emergency Department Summary Normal [facility] Erythrocyte Sed Rateon 04-14 SED RATE 87 mm/hr High 0-20 [facility] Comment on above: Performed By: #### L 101.9900, L501.6710 ####[facility] [address] [place], [address] Foot min 3 Viewson 4 Foot min 3 Views Normal [facility] H AND P Exam - Hospitaliston 04-14-2024 H&P Exam - Hospitalist Normal [facility] Lactic Acidon 04-14-2024 Lactate [Moles/Vol] 1.6 mmol/L Normal 0.4-1.9 [facility] Center Comment on above: Order Comment: Y Performed By: #### L 503.6005, L500.4050, L100.0100 ####[facility] [address] [place], [address] CNPNon 04-13-2024 CNPN Normal [facility] CNPNon 04-05-2024 CNPN Normal [facility] CNOVon 03-28-2024 CNOV Normal [facility] Comprehensive metabolic 2000 panelon 03-28-2024 Albumin [Mass/Vol] 3.2 g/dL Low 3.9-4.9 [facility] Comment on above: Order Comment: Speci men Type: BLOOD SPECIMENOrdering Facility: [facility] Address: [address] [place] [address] Performed By: #### 2 4323-8 ####[facility] LABCLIA [id number] [place] [address] [place] ALP [Catalytic activity/Vol] 65 U/L Normal 38-113 [facility] Comment on above: Order Comment: Speci men Type: BLOOD SPECIMENOrdering Facility: [facility] Address: [address] [place] [address] Performed By: #### 2 4323-8 ####[facility] LABCLIA [id number] [place] [address] [place] ALT [Catalytic activity/Vol] 10 U/L Normal 10-54 [facility] Comment on above: Order Comment: Speci men Type: BLOOD SPECIMENOrdering Facility: [facility] Address: [address] [place] [address] Performed By: #### 2 4323-8 ####[facility] LABCLIA [id number] [place] [address] [place] Anion gap [Moles/Vol] 12 mmol/L Normal 8-15 [facility] Comment on above: Order Comment: Speci men Type: BLOOD SPECIMENOrdering Facility: [facility] Address: [address] [place] [address] Performed By: #### 2 4323-8 ####[facility] LABCLIA [id number] [place] [address] [place] AST [Catalytic activity/Vol] 12 U/L Low 14-40 [facility] Comment on above: Order Comment: Speci men Type: BLOOD SPECIMENOrdering Facility: [facility] Address: [address] [place] [address] Performed By: #### 2 4323-8 ####[facility] LABCLIA [id number] [place] [address] [place] Bilirubin [Mass/Vol] 0.2 mg/dL Normal 0.2-1.3 [facility] Comment on above: Order Comment: Speci men Type: BLOOD SPECIMENOrdering Facility: [facility] Address: [address] [place] [address] Performed By: #### 2 4323-8 ####[facility] LABCLIA [id number] [place] [address] [place] Calcium [Mass/Vol] 8.9 mg/dL Normal 8.5-10.2 [facility] Comment on above: Order Comment: Speci men Type: BLOOD SPECIMENOrdering Facility: [facility] Address: [address] [place] [address] Performed By: #### 2 4323-8 ####[facility] LABCLIA [id number] [place] [address] [place] Chloride [Moles/Vol] 93 mmol/L Low 98-107 [facility] Comment on above: Order Comment: Speci men Type: BLOOD SPECIMENOrdering Facility: [facility] Address: [address] [place] [address] Performed By: #### 2 4323-8 ####[facility] LABCLIA [id number] [place] [address] [place] CO2 [Moles/Vol] 28 mmol/L Normal 22-30 [facility] Comment on above: Order Comment: Speci men Type: BLOOD SPECIMENOrdering Facility: [facility] Address: [address] [place] [address] Performed By: #### 2 4323-8 ####[facility] LABCLIA [id number] [place] [address] [place] Creatinine [Mass/Vol] 4.23 mg/dL High 0.73-1.22 [facility] Comment on above: Order Comment: Speci men Type: BLOOD SPECIMENOrdering Facility: [facility] Address: [address] [place] [address] Performed By: #### 2 4323-8 ####[facility] LABCLIA [id number] [place] [address] [place] Creatinine and Glomerular filtration rate.predicted panel (S/P/Bld) 13 mL/min/1.73m??? Low >=60 [facility] Comment on above: Order Comment: Speci men Type: BLOOD SPECIMENOrdering Facility: [facility] Address: [address] [place] [address] Result Comment: Tessa mated Glomerular Filtration Rate [...] actual GFR. Performed By: #### 2 4323-8 ####[facility] LABCLIA [id number] [address] [address] [place] Glucose [Mass/Vol] 371 mg/dL High 74-99 [facility] Comment on above: Order Comment: Speci ash Type: BLOOD SPECIMENOrdering Facility: [facility] Address: [address] [place] [address] Result Comment: The [place] Diabetes Association (ADA) provides guidance for cutoff [...] Standards of Medical Care in Diabetes 2016, [place] [employer]. Diabetes Care. 2016.39(Suppl 1). Performed By: #### 2 4323-8 ####[facility] LABCLIA [id number] [place] [id number] [place] Potassium [Moles/Vol] 5.0 mmol/L Normal 3.7-5.1 [facility] Comment on above: Order Comment: Speci men Type: BLOOD SPECIMENOrdering Facility: [facility] Address: [address] [place] [address] Performed By: #### 2 4323-8 ####[facility] LABCLIA [id number] [address] [address] [place] Protein [Mass/Vol] 6.5 g/dL Normal 6.3-8.0 [facility] Comment on above: Order Comment: Speci men Type: BLOOD SPECIMENOrdering Facility: [facility] Address: [address] [place] [address] Performed By: #### 2 4323-8 ####[facility] LABCLIA [id number] [place] [address] [place] Sodium [Moles/Vol] 133 mmol/L Low 136-144 [facility] Comment on above: Order Comment: Speci men Type: BLOOD SPECIMENOrdering Facility: [facility] Address: [address] [place] [address] Performed By: #### 2 4323-8 ####[facility] LABCLIA [id number] [place] [address] [place] Urea nitrogen [Mass/Vol] 37 mg/dL High 9-24 [facility] Comment on above: Order Comment: Speci men Type: BLOOD SPECIMENOrdering Facility: [facility] Address: [address] [place] [address] Performed By: #### 2 4323-8 ####[facility] LABCLIA [id number] [place] [address] [place] HbA1c (Bld)on 03-28-2024 Average glucose Estimated from glycated hemoglobin (Bld) [Mass/Vol] 206 mg/dL Normal [facility] Comment on above: Order Comment: Speci men Type: BLOOD SPECIMENOrdering Facility: [facility] Address: [address] [place] [address] Result Comment: eAG: (Estimated average glucose) is a calculated value from HgbA1c and is welding equipment sales representative of the average blood glucose level in the last 2-3 month period. Performed By: #### 5 5454-3 ####[facility] LABCLIA [id number] [place] [address] [place] HbA1c (Bld) [Mass fraction] 8.8 % High 4.3-5.6 [facility] Comment on above: Order Comment: Speci men Type: BLOOD SPECIMENOrdering Facility: [facility] Address: [address] [place] [address] Result Comment: [place]el [place] Diabetes Association guidelines indicate that patients with HgbA1c in the range 5.7-6.4% are at increased risk for development of diabetes, and intervention by lifestyle modification may be beneficial. HgbA1c greater or equal to 6.5% is considered diagnostic of diabetes. Performed By: #### 5 5454-3 ####[facility] LABCLIA [id number] [facility] [id number] [address] [place] CNOVon 01-06-2024 CNOV Normal [facility] KORon 09-08-2023 Potassium [Moles/Vol] 3.7 mmol/L Normal 3.5-5.0 [facility] ([place]) Comment on above: Performed By: #### K OR #### [facility] [address] [place] [address] LABORATORYOrdered By: Miguelina Ramirez on 09-08-2023 Blood Glucose Testing Reason Routine (09/08/23 2:30 PM) [facility] Work Phone: Glucose [Mass/Vol] 111 mg/dL Normal 82 - 115 mg/dL [facility] Work Phone: LABORATORYOrdered By: Nelli Gar on 09-08-2023 Potassium [Moles/Vol] 3.7 mmol/L Normal 3.5 - 5.0 mEq/L [facility] Comm SS LABORATORYOrdered By: Kailey Sanchez on 09-08-2023 Glucose [Mass/Vol] 147 mg/dL High 82 - 115 mg/dL [facility] Work Phone: HEMOGLOBIN A1C (POC)on 12-06 HbA1c (Bld) [Mass fraction] 8.1 % Abnormal 4.2 - 5.6 % [facility] HEMOGLOBIN A1C (POC)on 09-06 HbA1c (Bld) [Mass fraction] 8.4 % Abnormal 4.2 - 5.6 % [facility] Comprehensive metabolic 2000 panelon 03-06-2022 Albumin [Mass/Vol] 3.9 g/dL 3.9 - 4.9 g/dL [facility] ALP [Catalytic activity/Vol] 56 U/L 38 - 113 U/L [facility] ALT [Catalytic activity/Vol] 17 U/L 10 - 54 U/L [facility] Anion gap [Moles/Vol] 13 mmol/L 9 - 18 mmol/L [facility] AST [Catalytic activity/Vol] 13 U/L Low 14 - 40 U/L [facility] Bilirubin [Mass/Vol] 0.4 mg/dL 0.2 - 1 .3 mg/dL [facility] Calcium [Mass/Vol] 9.1 mg/dL 8.5 - 10. 2 mg/dL [facility] Chloride [Moles/Vol] 95 mmol/L Low 97 - 10 5 mmol/L [facility] CO2 [Moles/Vol] 30 mmol/L 22 - 30 mmol/L [facility] Creatinine [Mass/Vol] 4.13 mg/dL High 0.73 - 1.22 mg/dL [facility] Estimated Glomerular Filtration Rate 14 mL/min/1.73m Low >=60 mL/min/1.73 m [facility] Glucose [Mass/Vol] 239 mg/dL High 74 - 99 mg/dL [facility] Potassium [Moles/Vol] 4.9 mmol/L 3.7 - 5.1 mmol/L [facility] Protein [Mass/Vol] 7.2 g/dL 6.3 - 8.0 g/dL [facility] Sodium [Moles/Vol] 138 mmol/L 136 - 144 mmol/L [facility] Urea nitrogen [Mass/Vol] 49 mg/dL High 9 - 24 mg/dL [facility] LIPID PANEL, NONFASTINGon Cholesterol [Mass/Vol] 146 mg/dL <200 mg/dL [facility] HDL Cholesterol, Nonfasting 46 mg/dL >39 mg/dL [facility] LDL Cholesterol, Nonfasting 89 mg/dL <100 mg/dL [facility] LDL/HDL Ratio, Nonfasting 1.93 mg/dL <2.54 mg/dL [facility] Non HDL Cholesterol, Nonfasting 100 mg/dL <130 mg/dL [facility] Total Chol/HDL Ratio, Nonfasting 3.17 mg/dL <5.10 mg/dL [facility] Triglycerides, Nonfasting 55 mg/dL <150 mg/dL [facility] VLDL Cholesterol, Nonfasting 11 mg/dL <30 mg/dL [facility] HbA1c (Bld)on 03-05-2022 Average glucose Estimated from glycated hemoglobin (Bld) [Mass/Vol] 209 mg/dL [facility] HbA1c (Bld) [Mass fraction] 8.9 % High 4.3 - 5.6 % [facility] Basophil percentageon 2021 Chloride [Moles/Vol] 103 mmol/L 98-107 [facility] Work Phone: [phone] Glucose [Mass/Vol] 263 mg/dL 74-106 [facility] Work Phone: [phone] Comment on above: Glucose result great er than or equal to 200 mg/dLsuggests DIABETES MELLITUS per A.D.A. criteria. Potassium [Moles/Vol] 4.3 mmol/L 3.5-5.1 [facility] Work Phone: [phone] Sodium [Moles/Vol] 138 mmol/L 136-145 [facility] Work Phone: [phone] WBC (Bld) [#/Vol] 8.1 10*3/uL 4.4-11.0 [facility] Work Phone: [phone] Blood erythrocytes count (nu mber/volume)on 11-06-2021 RBC (Bld) [#/Vol] 3.75 10*6/uL 4.6-6.2 [facility] Work Phone: [phone] Blood hemoglobin measurement (mass/volume)on 11-06-2021 Hemoglobin (Bld) [Mass/Vol] 11.4 g/dL 13.0-16.5 [facility] Work Phone: [phone] Blood platelet mean volumeon 11-06-2021 Platelet mean volume (Bld) [Entitic vol] 11.2 fL 6.2-12.0 [facility] Work Phone: [phone] Determination of erythrocyte mean corpuscular volume (MCV)on 11-06-2021 MCV (RBC) [Entitic vol] 94.9 fL 80-94 [facility] Work Phone: [phone] Hematocrit Auto (Bld) [Volum e fraction]on 11-06-2021 Hematocrit (Bld) [Volume fraction] 35.6 % 40-54 [facility] Work Phone: Laboratory - Chemistry and C hemistry - challengeon 11-06-2021 CO2 [Moles/Vol] 30.0 mmol/L 21.0-32.0 [facility] Work Phone: Urea nitrogen/Creatinine [Mass ratio] 12.6 mg/mg 10-20 [facility] Work Phone: [phone] Laboratory - Hematology and Cell countson 11-06-2021 Erythrocyte distribution width (RBC) [Entitic vol] 43.0 fL 35.1-43.9 [facility] Work Phone: Erythrocyte distribution width (RBC) [Ratio] 12.4 % 11.6-14.6 [facility] Work Phone: MCH (RBC) [Entitic mass] 30.4 pg 27.0-32.0 [facility] Work Phone: MCHC Auto (RBC) [Mass/Vol]on 11-06-2021 MCHC (RBC) [Mass/Vol] 32.0 g/dL 32-36 [facility] Work Phone: No Panel Informationon 11-06 Estimated Creatinine Clearance Calc 12.37 ml/min [facility] Work Phone: Estimated GFR (MDRD) Amer 17 mL/min >60 [facility] Work Phone: Comment on above: GFR Calc Estimated GFR (MDRD) Non-Af Amer 14 mL/min >60 [facility] Work Phone: Comment on above: Non- GFR Calc Platelets bldon 11-06-2021 Platelets (Bld) [#/Vol] 160 10*3/uL 150-450 [facility] Work Phone: Serum or plasma calcium lilli urement (mass/volume)on 11-06-2021 Calcium [Mass/Vol] 9.0 mg/dL 8.5-10.1 [facility] Work Phone: Serum or plasma creatinine m easurement (mass/volume)on 11-06-2021 Creatinine [Mass/Vol] 4.30 mg/dL 0.70-1.30 [facility] Work Phone: Comment on above: The validity of the calculated GFR & GFRAA in patients over 70 years has not been determined. Clinical correlation is essential. Serum or plasma urea nitroge n measurement (mass/volume)on 11-06-2021 Urea nitrogen [Mass/Vol] 54 mg/dL 7-18 [facility] Work Phone: Thin prep Papanicolaou smear with manual screeningon 11-06-2021 Thin prep Papanicolaou smear with manual screening 5 -15 [facility] Work Phone: XR Foot - bilateral AP and L ateral and obliqueon 03-04-2021 IMPRESSION: No acute bony finding. 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 Transcribe Date/Time: Mar 04 2021 12:13P Dictated by : FERNANDO JANE MD This examination was interpreted and the report reviewed and electronically signed by: FERNANDO JANE MD on Mar 04 2021 12:15PM [facility] Radiology Study observation (narrative) [facility] XR Foot - bilateral AP and L ateral and obliqueOrdered By: Ccf Provider on 03-04-2021 [facility] Office Visiton 10-27-2016 Documentation of current medications (procedure) Done Invalid Interpretation Code [facility] Work Phone: [phone] Fall risk assessment No Invalid Interpretation Code [facility] Work Phone: [phone] Protein mass conc Done [facility] Work Phone: [phone] Replaced Document: Eileen LORENZO Observationson 10-27-2016 EKG QRS axis -23 deg [facility] Work Phone: [phone] electrocardiogram interpretation Possible atrial fibrillation - Nonspecific T-abnormality. ABNORMAL Invalid Interpretation Code [facility] Work Phone: [phone] GE use only - for Link[employer]ic import when terms are not otherwise specified 431 ms Invalid Interpretation Code [facility] Work Phone: [phone] Interpretation Possible atrial fibrillation - Nonspecific T-abnormality. ABNORMAL [facility] Work Phone: [phone] P Aurora 1 deg [facility] Work Phone: [phone] P wave axis, electrocardiogram 1 deg Invalid Interpretation Code [facility] Work Phone: [phone] VA Interval 0 ms [facility] Work Phone: [phone] VA interval, electrocardiogram 0 ms Invalid Interpretation Code [facility] Work Phone: [phone] Pulse (Heart Rate) 69 /min Invalid Interpretation Code [facility] Work Phone: [phone] QRS axis, electrocardiogram -23 deg Invalid Interpretation Code [facility] Work Phone: [phone] QRS Duration 114 ms [facility] Work Phone: [phone] QRS duration, electrocardiogram 114 ms Invalid Interpretation Code [facility] Work Phone: [phone] QT Interval new path ms [facility] Work Phone: [phone] QT interval, electrocardiogram new path ms Invalid Interpretation Code [facility] Work Phone: [phone] QTc Liriano 431 ms [facility] Work Phone: [phone] T Aurora 90 deg [facility] Work Phone: [phone] T wave axis, electrocardiogram 90 deg Invalid Interpretation Code [facility] Work Phone: [phone] Clinical Lists Update: PreCurrently 10-26-2016 Tobacco smoking status NHIS Never smoker [facility] Work Phone: [phone] Tobacco use CPHS Never smoker Invalid Interpretation Code [facility] Work Phone: [phone] Clinical Lists Update: poLight10-14-2016 Anion gap 14 mmol/L Invalid Interpretation Code [facility] Work Phone: [phone] Anion gap [Moles/Vol] 14 mmol/L [facility] Work Phone: [phone] Calcium 9.8 mg/dL Invalid Interpretation Code [facility] Work Phone: [phone] Chloride 97 mmol/L Invalid Interpretation Code [facility] Work Phone: [phone] CO2 25 mmol/L Invalid Interpretation Code [facility] Work Phone: [phone] CO2 (BldV) [Partial pressure] 25 mmol/L [facility] Work Phone: [phone] Creatinine 1.69 mg/dL High [facility] Work Phone: [phone] Glucose 264 mg/dL High [facility] Work Phone: [phone] Glucose [Mass/Vol] 264 mg/dL [facility] Work Phone: [phone] Potassium 4.5 mmol/L Invalid Interpretation Code [facility] Work Phone: [phone] Sodium 136 mmol/L Invalid Interpretation Code [facility] Work Phone: [phone] Thyroid stimulating hormone (TSH) 1.29 u[iU]/mL Invalid Interpretation Code [facility] Work Phone: [phone] Urea nitrogen 21 mg/dL Invalid Interpretation Code [facility] Work Phone: [phone] 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 Nando Wiggins MD Work Phone: [facility] 01-25-2025 17:00-0400 Heart rate 90 /min Dr. Nando Wiggins MD Work Phone: [facility] 01-25-2025 17:00-0400 Respiratory rate 16 /min Dr. Nando Wiggins MD Work Phone: [facility] 01-25-2025 17:00-0400 SaO2% (BldA) [Mass fraction] 90 % Dr. Nando Wiggins MD Work Phone: [facility] 01-25-2025 17:00-0400 Systolic blood pressure 125 mm[Hg] Dr. Nando Wiggins MD Work Phone: [facility] 01-25-2025 15:27-0400 Body height 177.[address] Nando Wiggins MD Work Phone: [facility] 01-25-2025 15:27-0400 Body mass index (BMI) [Ratio] 31.3 kg/m2 Dr. Nando Wiggins MD Work Phone: [facility] 01-25-2025 15:27-0400 Body temperature 97.5 [degF] Dr. Nando Wiggins MD Work Phone: [facility] 01-25-2025 15:27-0400 Body weight 99.[address] Nando Wiggins MD Work Phone: [facility] 11-27-2024 07:37-0400 SaO2% (BldA) [Mass fraction] 98 % HUSAM YAN [facility] Comment on above: Order Comment: Specimen Type: ARTERIAL B LOOD SPECIMENOrdering Facility: [facility] Address: [address] [place] [address] Performed By: #### A LLBG ####[facility] [id number] [address] 11-26-2024 21:30-0400 SaO2% (BldA) [Mass fraction] 97 % HUSAM YAN [facility] Comment on above: Order Comment: Specimen Type: ARTERIAL B LOOD SPECIMENOrdering Facility: [facility] Address: [address] [place] [address] Performed By: #### A LLBG ####[facility] [id number] [address] 11-26-2024 18:06-0400 SaO2% (BldA) [Mass fraction] 99 % HUSAM YAN [facility] Comment on above: Order Comment: Specimen Type: ARTERIAL B LOOD SPECIMENOrdering Facility: [facility] Address: [address] [place] [address] Performed By: #### A LLBG ####[facility] LABCLIA [id number] [address] [address] [facility] 11-26-2024 13:47-0400 SaO2% (BldA) [Mass fraction] 97 % HUSAM YAN [facility] Comment on above: Order Comment: Specimen Type: ARTERIAL B LOOD SPECIMENOrdering Facility: [facility] Address: [address] [place], [place] [id number] Performed By: #### A LLMG ####[facility] LABIA [id number] [place] [id number] [facility] 11-26-2024 07:36-0400 SaO2% (BldA) [Mass fraction] 99 % HUSAM YAN [facility] Comment on above: Order Comment: Specimen Type: ARTERIAL B LOOD SPECIMENOrdering Facility: [facility] Address: [address] [place], [place] [id number] Performed By: #### A LLBG ####[facility] [id number] [address] [address] [facility] 11-26-2024 00:22-0400 SaO2% (BldA) [Mass fraction] 97 % HUSAM YAN [facility] Comment on above: Order Comment: Specimen Type: ARTERIAL B LOOD SPECIMENOrdering Facility: [facility] Address: [address] [place], [place] [id number] Performed By: #### A LLBG ####[facility] LABIA [id number] [address] [address] [facility] 11-25-2024 20:35-0400 SaO2% (BldA) [Mass fraction] 98 % HUSAM YAN [facility] Comment on above: Order Comment: Specimen Type: ARTERIAL B LOOD SPECIMENOrdering Facility: [facility] Address: [address] [place], [place] [address] Performed By: #### A LLBG ####[facility] LABCLIA [id number] [place] [id number] [place] 11-25-2024 15:08-0400 SaO2% (BldA) [Mass fraction] 97 % HUSAM YAN [facility] Comment on above: Order Comment: Specimen Type: ARTERIAL B LOOD SPECIMENOrdering Facility: [facility] Address: [address] [place], [place] [address] Performed By: #### A LLBG ####[facility] LABIA [id number] [place] [id number] [place] 11-25-2024 11:07-0400 SaO2% (BldA) [Mass fraction] 99 % HUSAM YAN [facility] Comment on above: Order Comment: Specimen Type: ARTERIAL B LOOD SPECIMENOrdering Facility: [facility] Address: [address] [place] [address] Performed By: #### A LLBG ####[facility] LABIA [id number] [place] [id number] [place] 11-25-2024 08:20-0400 SaO2% (BldA) [Mass fraction] 97 % HUSAM YAN [facility] Comment on above: Order Comment: Specimen Type: ARTERIAL B LOOD SPECIMENOrdering Facility: [facility] Address: [address] [place], [place] [id number] Performed By: #### A LLBG ####[facility] LABIA [id number] [place] [id number] [place] 11-25-2024 00:43-0400 SaO2% (BldA) [Mass fraction] 92 % HUSAM YAN [facility] Comment on above: Order Comment: Specimen Type: ARTERIAL B LOOD SPECIMENOrdering Facility: [facility] Address: [address] [place], [place] [id number] Performed By: #### A LLBG ####[facility] LABIA [id number] [address] [place] [address] [place] 11-24-2024 16:34-0400 SaO2% (BldA) [Mass fraction] 94 % HUSAM YAN [facility] Comment on above: Order Comment: Specimen Type: ARTERIAL B LOOD SPECIMENOrdering Facility: [facility] Address: [address] [place], [place] [id number] Performed By: #### A LLBG ####[facility] LABCLIA [id number] [address] [address] [place] 11-24-2024 08:23-0400 SaO2% (BldA) [Mass fraction] 96 % HUSAM YAN [facility] Comment on above: Order Comment: Specimen Type: ARTERIAL B LOOD SPECIMENOrdering Facility: [facility] Address: [address] [place] [address] Performed By: #### A LLBG ####[facility] LABCLIA [id number] [place] [id number] [place] 11-24-2024 06:44-0400 SaO2% (BldA) [Mass fraction] 97 % HUSAM YAN [facility] Comment on above: Order Comment: Specimen Type: ARTERIAL B LOOD SPECIMENOrdering Facility: [facility] Address: [address] [place], [place] [id number] Performed By: #### A LLBG ####[facility] LABIA [id number] [address] [address] [place] 11-24-2024 00:29-0400 SaO2% (BldA) [Mass fraction] 97 % HUSAM YAN [facility] Comment on above: Order Comment: Specimen Type: ARTERIAL B LOOD SPECIMENOrdering Facility: [facility] Address: [address] [place], [place] [id number] Performed By: #### A LLBG ####[facility] LABIA [id number] [address] [address] [place] 11-23-2024 19:51-0400 SaO2% (BldA) [Mass fraction] 96 % Dr. Nando Wiggins MD Work Phone: [facility] Comment on above: Order Comment: Specimen Type: ARTERIAL B LOOD SPECIMENOrdering Facility: [facility] Address: [address] [place] [address] Performed By: #### A LLBG ####[facility] LABCLIA [id number] [address] 11-23-2024 14:00-0400 Diastolic blood pressure 55 mm[Hg] Dr. Nando Wiggins MD Work Phone: [facility] 11-23-2024 14:00-0400 Heart rate 30 /min Dr. Nando Wiggins MD Work Phone: [facility] 11-23-2024 14:00-0400 Respiratory rate 18 /min Dr. Nando Wiggins MD Work Phone: [facility] 11-23-2024 14:00-0400 Systolic blood pressure 120 mm[Hg] Dr. Nando Wiggins MD Work Phone: [facility] 11-22-2024 21:07-0400 Body temperature 97.8 [degF] Dr. Nando Wiggins MD Work Phone: [facility] 11-22-2024 08:46-0400 Body height 170.[address] Nando Wiggins MD Work Phone: [facility] 11-22-2024 08:46-0400 Body mass index (BMI) [Ratio] 34.7 kg/m2 Dr. Nando Wiggins MD Work Phone: [facility] 11-22-2024 08:46-0400 Body weight 100.[address] Nando Wiggins MD Work Phone: [facility] 11-09-2024 03:00-0400 Diastolic blood pressure 52 mm[Hg] Dr. Nando Wiggins MD Work Phone: [facility] 11-09-2024 03:00-0400 Heart rate 52 /min Dr. Nando Wiggins MD Work Phone: [facility] 11-09-2024 03:00-0400 SaO2% (BldA) [Mass fraction] 96 % Dr. aNndo Wiggins MD Work Phone: [facility] 11-09-2024 03:00-0400 Systolic blood pressure 126 mm[Hg] Dr. Nando Wiggins MD Work Phone: [facility] 11-08-2024 22:11-0400 Body temperature 97.6 [degF] Dr. Nando Wiggins MD Work Phone: [facility] 11-08-2024 22:11-0400 Respiratory rate 18 /min Dr. Nando Wiggins MD Work Phone: [facility] 11-08-2024 19:36-0400 Body height 170.[address] Nando Wiggins MD Work Phone: [facility] 11-08-2024 19:36-0400 Body mass index (BMI) [Ratio] 32.5 kg/m2 Dr. Nando Wiggins MD Work Phone: [facility] 11-08-2024 19:36-0400 Body weight 94.[address] Nando Wiggins MD Work Phone: [facility] 10-29-2024 06:52-0400 Body mass index (BMI) [Ratio] 32.5 kg/m2 Dr. Nando Wiggins MD Work Phone: [facility] 10-29-2024 06:52-0400 Body weight 94.[address] Nando Wiggins MD Work Phone: [facility] 10-29-2024 06:52-0400 Diastolic blood pressure 65 mm[Hg] Dr. Nando Wiggins MD Work Phone: [facility] 10-29-2024 06:52-0400 Heart rate 54 /min Dr. Nando Wiggins MD Work Phone: [facility] 10-29-2024 06:52-0400 Respiratory rate 18 /min Dr. Nando Wiggins MD Work Phone: [facility] 10-29-2024 06:52-0400 SaO2% (BldA) [Mass fraction] 92 % Dr. Nando Wiggins MD Work Phone: [facility] 10-29-2024 06:52-0400 Systolic blood pressure 129 mm[Hg] Dr. Nando Wiggins MD Work Phone: [facility] 10-17-2024 10:25-0400 Body temperature 98.6 [degF] Dr. Jean Yan MD Work Phone: [facility] 10-17-2024 10:25-0400 Diastolic blood pressure 72 mm[Hg] Dr. Jean Yan MD Work Phone: [facility] 10-17-2024 10:25-0400 Heart rate 56 /min Dr. Jean Yan MD Work Phone: [facility] 10-17-2024 10:25-0400 Respiratory rate 16 /min Dr. Jean Yan MD Work Phone: [facility] 10-17-2024 10:25-0400 SaO2% (BldA) [Mass fraction] 93 % Dr. Jean Yan MD Work Phone: [facility] 10-17-2024 10:25-0400 Systolic blood pressure 135 mm[Hg] Dr. Jean Yan MD Work Phone: [facility] 10-03-2024 09:08-0400 Body temperature 98 [degF] Dr. Jean Yan MD Work Phone: 5(255)941-448373 [place] [address] 10-03-2024 09:08-0400 Diastolic blood pressure 54 mm[Hg] Dr. Jean Yan MD Work Phone: 2(560)872-538117 [place] [address] 10-03-2024 09:08-0400 Heart rate 48 /min Dr. Jean Yan MD Work Phone: 0(313)155-519217 [place] [address] 10-03-2024 09:08-0400 Respiratory rate 14 /min Dr. Jean Yan MD Work Phone: 3(516)342-239317 [place] [address] 10-03-2024 09:08-0400 SaO2% (BldA) [Mass fraction] 94 % Dr. Jean Yan MD Work Phone: 1(113)107-719917 [place] [address] 10-03-2024 09:08-0400 Systolic blood pressure 132 mm[Hg] Dr. Jean Yan MD Work Phone: 4(629)213-670217 [place] [address] 09-24-2024 10:09-0400 Body mass index (BMI) [Ratio] 31.9 kg/m2 Dr. Jean Yan MD Work Phone: 4(383)875-127817 [place] [address] 09-24-2024 10:09-0400 Body temperature 96 [degF] Dr. Jean Yan MD Work Phone: 2(156)646-808517 [place] [address] 09-24-2024 10:09-0400 Diastolic blood pressure 40 mm[Hg] Dr. Jean Yan MD Work Phone: 2(663)634-976017 [place] [address] 09-24-2024 10:09-0400 Heart rate 44 /min Dr. Jean Yan MD Work Phone: 6(317)470-047217 [place] [address] 09-24-2024 10:09-0400 Respiratory rate 16 /min Dr. Jean Yan MD Work Phone: 2(541)275-170817 [place] [address] 09-24-2024 10:09-0400 Systolic blood pressure 121 mm[Hg] Dr. Jean Yan MD Work Phone: 2(453)628-682617 [place] [address] 09-20-2024 00:41-0400 Body weight 92.[address] Jean Yan MD Work Phone: 1(685)129-017017 [place] [address] 09-04-2024 12:16-0400 Body mass index (BMI) [Ratio] 29.9 kg/m2 Dr. Jean Yan MD Work Phone: 4(998)793-006217 [place] [address] 09-04-2024 12:16-0400 Body temperature 97.2 [degF] Dr. Jean Yan MD Work Phone: 7(814)578-707617 [place] [address] 09-04-2024 12:16-0400 Body weight 86.[address] Jean Yan MD Work Phone: 7(000)597-350617 [place] [address] 09-04-2024 12:16-0400 Diastolic blood pressure 59 mm[Hg] Dr. Jean Yan MD Work Phone: 6(892)753-961617 [place] [address] 09-04-2024 12:16-0400 Heart rate 53 /min Dr. Jean Yan MD Work Phone: 3(041)469-567017 [place] [address] 09-04-2024 12:16-0400 Respiratory rate 14 /min Dr. Jean Yan MD Work Phone: 2(543)646-169317 [place] [address] 09-04-2024 12:16-0400 SaO2% (BldA) [Mass fraction] 96 % Dr. Jean Yan MD Work Phone: 5(906)891-613117 [place] [address] 09-04-2024 12:16-0400 Systolic blood pressure 108 mm[Hg] Dr. Jean Yan MD Work Phone: 7(798)136-053217 [place] [address] 09-03-2024 14:19-0400 Body height 170.[address] Jean Yan MD Work Phone: 2(902)525-319517 [place] [address] 08-30-2024 21:37-0400 Inhaled oxygen flow rate 2 L/min Dr. Jean Yan MD Work Phone: 2(987)514-558717 [place] [address] 08-27-2024 08:54-0400 Body mass index (BMI) [Ratio] 31.9 kg/m2 Dr. Jena Yan MD Work Phone: 6(236)611-493917 [place] [address] 08-27-2024 08:54-0400 Diastolic blood pressure 61 mm[Hg] Dr. Jean Yan MD Work Phone: 5(058)703-886217 [place] [address] 08-27-2024 08:54-0400 Heart rate 66 /min Dr. Jean Yan MD Work Phone: 8(316)166-524517 [place] [address] 08-27-2024 08:54-0400 Respiratory rate 16 /min Dr. Jean Yan MD Work Phone: 4(754)338-535017 [place] [address] 08-27-2024 08:54-0400 Systolic blood pressure 100 mm[Hg] Dr. Jean Yan MD Work Phone: 6(723)959-752817 [place] [address] 08-21-2024 00:56-0400 Body temperature 97.4 [degF] Dr. Jean Yan MD Work Phone: 6(792)565-855417 [place] [address] 08-21-2024 00:56-0400 Body weight 92.[address] Jean Yan MD Work Phone: 7(240)925-775317 [place] [address] 08-20-2024 10:36-0400 Body mass index (BMI) [Ratio] 31.9 kg/m2 Dr. Jean Yan MD Work Phone: 6(895)654-534417 [place] [address] 08-20-2024 10:36-0400 Body temperature 97.4 [degF] Dr. Jean Yan MD Work Phone: 0(687)595-571517 [place] [address] 08-20-2024 10:36-0400 Diastolic blood pressure 39 mm[Hg] Dr. Jean Yan MD Work Phone: 0(816)067-450417 [place] [address] 08-20-2024 10:36-0400 Heart rate 42 /min Dr. Jean Yan MD Work Phone: 0(481)554-312617 [place] [address] 08-20-2024 10:36-0400 Respiratory rate 16 /min Dr. Jean Yan MD Work Phone: 2(247)387-297417 [place] [address] 08-20-2024 10:36-0400 Systolic blood pressure 123 mm[Hg] Dr. Jean Yan MD Work Phone: 5(129)192-841917 [place] [address] 08-01-2024 19:00-0400 Diastolic blood pressure 46 mm[Hg] Dr. Jean Yan MD Work Phone: 6(577)427-923617 [place] [address] 08-01-2024 19:00-0400 Heart rate 47 /min Dr. Jean Yan MD Work Phone: 1(877)370-590417 [place] [address] 08-01-2024 19:00-0400 Respiratory rate 18 /min Dr. Jean Yan MD Work Phone: 9(731)842-314717 [place] [address] 08-01-2024 19:00-0400 SaO2% (BldA) [Mass fraction] 98 % Dr. Jean Yan MD Work Phone: 3(326)703-514617 [place] [address] 08-01-2024 19:00-0400 Systolic blood pressure 113 mm[Hg] Dr. Jean Yan MD Work Phone: 5(243)598-963617 [place] [address] 08-01-2024 15:00-0400 Body temperature 98.1 [degF] Dr. Jean Yan MD Work Phone: 4(308)224-283217 [place] [address] 07-21-2024 02:32-0500 Body weight 92.[address] Jean Yan MD Work Phone: 5(565)550-080917 [place] [address] 07-20-2024 20:26-0500 Body temperature 98.1 [degF] Dr. Jean Yan MD Work Phone: 9(753)524-663917 [place] [address] 07-20-2024 20:26-0500 Diastolic blood pressure 47 mm[Hg] Dr. Jean Yan MD Work Phone: 3(886)140-941317 [place] [address] 07-20-2024 20:26-0500 Heart rate 56 /min Dr. Jean Yan MD Work Phone: 6(395)084-141017 [place] [address] 07-20-2024 20:26-0500 Respiratory rate 18 /min Dr. Jean Yan MD Work Phone: 6(038)130-307117 [place] [address] 07-20-2024 20:26-0500 SaO2% (BldA) [Mass fraction] 97 % Dr. Jean Yan MD Work Phone: 8(541)952-322617 [place] [address] 07-20-2024 20:26-0500 Systolic blood pressure 143 mm[Hg] Dr. Jean Yan MD Work Phone: 4(800)857-580717 [place] [address] 07-20-2024 05:46-0500 Body mass index (BMI) [Ratio] 31.8 kg/m2 Dr. Jean Yan MD Work Phone: 8(820)995-207117 [place] [address] 07-20-2024 05:46-0500 Body weight 92.[address] Jean Yan MD Work Phone: 6(906)998-093017 [place] [address] 07-16-2024 15:18-0500 Inhaled oxygen flow rate 2 L/min Dr. Jean Yan MD Work Phone: 5(875)742-465317 [place] [address] 07-11-2024 10:27-0500 Body mass index (BMI) [Ratio] 31.9 kg/m2 Dr. Jean Yan MD Work Phone: 7(807)580-084817 [place] [address] 07-11-2024 10:27-0500 Body temperature 96.7 [degF] Dr. Jean Yan MD Work Phone: 1(846)049-562417 [place] [address] 07-11-2024 10:27-0500 Diastolic blood pressure 45 mm[Hg] Dr. Jean Yan MD Work Phone: 4(992)185-728117 [place] [address] 07-11-2024 10:27-0500 Heart rate 60 /min Dr. Jean Yan MD Work Phone: 8(682)598-451217 [place] [address] 07-11-2024 10:27-0500 Respiratory rate 18 /min Dr. Jean Yan MD Work Phone: 7(075)164-234817 [place] [address] 07-11-2024 10:27-0500 Systolic blood pressure 119 mm[Hg] Dr. Jean Yan MD Work Phone: 7(299)622-761017 [place] [address] 07-07-2024 22:04-0500 Body temperature 97.8 [degF] Dr. Jean Yan MD Work Phone: 8(218)733-934017 [place] [address] 07-07-2024 22:04-0500 Diastolic blood pressure 61 mm[Hg] Dr. Jean Yan MD Work Phone: 7(281)645-284917 [place] [address] 07-07-2024 22:04-0500 Heart rate 74 /min Dr. Jean Yan MD Work Phone: 1(438)295-511517 [place] [address] 07-07-2024 22:04-0500 Respiratory rate 19 /min Dr. Jean Yan MD Work Phone: 1(918)936-227217 [place] [address] 07-07-2024 22:04-0500 SaO2% (BldA) [Mass fraction] 94 % Dr. Jean Yan MD Work Phone: 4(472)409-302717 [place] [address] 07-07-2024 22:04-0500 Systolic blood pressure 119 mm[Hg] Dr. Jean Yan MD Work Phone: 2(053)179-293217 [place] [address] 07-07-2024 17:35-0500 Body mass index (BMI) [Ratio] 33.7 kg/m2 Dr. Jean Yan MD Work Phone: 8(434)390-379817 [place] [address] 07-07-2024 17:35-0500 Body weight 97.[address] Jean Yan MD Work Phone: 1(732)568-564917 [place] [address] 07-03-2024 17:24-0500 Body temperature 97.8 [degF] Dr. Jean Yan MD Work Phone: 2(410)251-608417 [place] [address] 07-03-2024 17:24-0500 Diastolic blood pressure 43 mm[Hg] Dr. Jean Yan MD Work Phone: 0(353)640-483017 [place] [address] 07-03-2024 17:24-0500 Heart rate 59 /min Dr. Jean Yan MD Work Phone: 5(674)041-723617 [place] [address] 07-03-2024 17:24-0500 Respiratory rate 16 /min Dr. Jean Yan MD Work Phone: 0(779)311-251417 [place] [address] 07-03-2024 17:24-0500 SaO2% (BldA) [Mass fraction] 98 % Dr. Jean Yan MD Work Phone: 3(559)610-814517 [place] [address] 07-03-2024 17:24-0500 Systolic blood pressure 109 mm[Hg] Dr. Jean Yan MD Work Phone: 7(386)354-569717 [place] [address] 07-03-2024 12:45-0500 Body mass index (BMI) [Ratio] 37.7 kg/m2 Dr. Jean Yan MD Work Phone: 6(520)212-783317 [place] [address] 07-03-2024 12:45-0500 Body weight 109.[address] Jean Yan MD Work Phone: 1(704)586-069517 [place] [address] 07-02-2024 20:15-0500 Body temperature 98 [degF] Dr. Jean Yan MD Work Phone: 1(138)896-889517 [place] [address] 07-02-2024 20:15-0500 Diastolic blood pressure 47 mm[Hg] Dr. Jean Yan MD Work Phone: 1(371)829-406317 [place] [address] 07-02-2024 20:15-0500 Heart rate 56 /min Dr. Jean Yan MD Work Phone: 0(844)607-445617 [place] [address] 07-02-2024 20:15-0500 Respiratory rate 18 /min Dr. Jean Yan MD Work Phone: 2(442)381-408517 [place] [address] 07-02-2024 20:15-0500 SaO2% (BldA) [Mass fraction] 97 % Dr. Jean Yan MD Work Phone: 4(788)191-364217 [place] [address] 07-02-2024 20:15-0500 Systolic blood pressure 115 mm[Hg] Dr. Jean Yan MD Work Phone: 6(911)810-773817 [place] [address] 07-02-2024 16:22-0500 Body mass index (BMI) [Ratio] 32.5 kg/m2 Dr. Jean Yan MD Work Phone: 4(295)613-544817 [place] [address] 07-02-2024 16:22-0500 Body weight 94.[address] Jean Yan MD Work Phone: 4(703)100-333017 [place] [address] 06-23-2024 02:27-0500 Body weight 92.[address] Jean Yan MD Work Phone: 7(565)692-111517 [place] [address] 06-20-2024 08:47-0500 Body temperature 97.5 [degF] Dr. Jean Yan MD Work Phone: 9(157)627-788817 [place] [address] 06-20-2024 08:47-0500 Body weight 96.[address] Jean Yan MD Work Phone: 8(787)922-720217 [place] [address] 06-20-2024 08:47-0500 Diastolic blood pressure 55 mm[Hg] Dr. Jean Yan MD Work Phone: 7(697)339-305917 [place] [address] 06-20-2024 08:47-0500 Heart rate 57 /min Dr. Jean Yan MD Work Phone: 7(881)852-155317 [place] [address] 06-20-2024 08:47-0500 Respiratory rate 14 /min Dr. Jean Yan MD Work Phone: 8(142)242-777017 [place] [address] 06-20-2024 08:47-0500 Systolic blood pressure 135 mm[Hg] Dr. Jean Yan MD Work Phone: 6(625)265-883317 [place] [address] 06-19-2024 11:43-0500 Body mass index (BMI) [Ratio] 31.9 kg/m2 Dr. Jean Yan MD Work Phone: 0(557)392-341217 [place] [address] 06-19-2024 11:43-0500 Respiratory rate 18 /min Dr. Jean Yan MD Work Phone: 4(261)652-014417 [place] [address] 06-12-2024 11:21-0500 Body temperature 96.7 [degF] Dr. Jean Yan MD Work Phone: 5(105)868-063917 [place] [address] 06-06-2024 10:00-0500 Body temperature 97 [degF] Dr. Jean Yan MD Work Phone: 2(570)628-608917 [place] [address] 06-06-2024 10:00-0500 Diastolic blood pressure 67 mm[Hg] Dr. Jean Yan MD Work Phone: 8(107)852-427373 [place] [address] 06-06-2024 10:00-0500 Heart rate 84 /min Dr. Jean Yan MD Work Phone: 0(493)111-945973 [place] [address] 06-06-2024 10:00-0500 Respiratory rate 16 /min Dr. Jean Yan MD Work Phone: 0(138)889-607417 [place] [address] 06-06-2024 10:00-0500 SaO2% (BldA) [Mass fraction] 95 % Dr. Jean Yan MD Work Phone: 0(298)692-472217 [place] [address] 06-06-2024 10:00-0500 Systolic blood pressure 101 mm[Hg] Dr. Jean Yan MD Work Phone: 6(945)541-599817 [place] [address] 06-06-2024 06:39-0500 Body mass index (BMI) [Ratio] 33.6 kg/m2 Dr. Jean Yan MD Work Phone: 0(228)767-689273 [place] [address] 06-06-2024 06:39-0500 Body weight 97.[address] Jean Yan MD Work Phone: 8(507)129-861273 [place] [address] 05-29-2024 10:49-0500 Diastolic blood pressure 31 mm[Hg] Dr. Jean Yan MD Work Phone: 7(061)595-346373 [place] [address] 05-29-2024 10:49-0500 Heart rate 58 /min Dr. Jean Yan MD Work Phone: 2(537)172-538473 [place] [address] 05-29-2024 10:49-0500 Systolic blood pressure 111 mm[Hg] Dr. Jean Yan MD Work Phone: 7(762)680-672973 [place] [address] 05-23-2024 00:51-0500 Body weight 92.[address] Jean Yan MD Work Phone: [facility] 04-14-2024 10:11-0500 Body temperature 99.1 [degF] Usman Moomaw [employer]EN [employer].NURSING STAFFING COORDINATOR Work Phone: [facility] 04-14-2024 10:11-0500 Diastolic blood pressure 60 mm[Hg] Usman Moomaw [employer].NURSING STAFFING COORDINATOR Work Phone: [facility] 04-14-2024 10:11-0500 Heart rate 76 /min Usman Moomaw [employer]EN [employer].NURSING STAFFING COORDINATOR Work Phone: [facility] 04-14-2024 10:11-0500 Respiratory rate 16 /min Usman Moomaw [employer].NURSING STAFFING COORDINATOR Work Phone: [facility] 04-14-2024 10:11-0500 SaO2% (BldA) [Mass fraction] 94 % Usman Moomaw [employer].NURSING STAFFING COORDINATOR Work Phone: [facility] 04-14-2024 10:11-0500 Systolic blood pressure 124 mm[Hg] Usman Moomaw [employer].NURSING STAFFING COORDINATOR Work Phone: [facility] 03-28-2024 12:54-0500 Body mass index (BMI) [Ratio] 34.25 kg/m2 Lauren Podlogar [employer].NURSING STAFFING COORDINATOR Work Phone: [facility] 03-28-2024 12:54-0500 Body weight 99.2 kg Lauren Podlogar [employer].NURSING STAFFING COORDINATOR Work Phone: [facility] 03-28-2024 12:54-0500 Diastolic blood pressure 48 mm[Hg] Lauren Podlogar [employer]ITCHEN [employer].NURSING STAFFING COORDINATOR Work Phone: [facility] 03-28-2024 12:54-0500 Heart rate 47 /min Lauren Podlogar [employer]ITCHEN [employer].NURSING STAFFING COORDINATOR Work Phone: [facility] 03-28-2024 12:54-0500 Respiratory rate 18 /min Lauren Podlogar [employer]ITCHEN [employer].NURSING STAFFING COORDINATOR Work Phone: [facility] 03-28-2024 12:54-0500 SaO2% (BldA) [Mass fraction] 98 % Lauren Podlogar [employer]ITCHEN [employer].NURSING STAFFING COORDINATOR Work Phone: [facility] 03-28-2024 12:54-0500 Systolic blood pressure 118 mm[Hg] Lauren Podlogar [employer].NURSING STAFFING COORDINATOR Work Phone: [facility] 01-06-2024 09:36-0400 Body mass index (BMI) [Ratio] 33.01 kg/m2 Lauren Podlogar [employer].NURSING STAFFING COORDINATOR Work Phone: [facility] 01-06-2024 09:36-0400 Body weight 95.6 kg Lauren Podlogar [employer].NURSING STAFFING COORDINATOR Work Phone: [facility] 01-06-2024 09:36-0400 Diastolic blood pressure 58 mm[Hg] Lauren Podlogar KITCHEN [employer].NURSING STAFFING COORDINATOR Work Phone: [facility] 01-06-2024 09:36-0400 Heart rate 58 /min Lauren Podlogar KITCHEN [employer].NURSING STAFFING COORDINATOR Work Phone: [facility] 01-06-2024 09:36-0400 Respiratory rate 16 /min Lauren Podlogar [employer].NURSING STAFFING COORDINATOR Work Phone: [facility] 01-06-2024 09:36-0400 SaO2% (BldA) [Mass fraction] 97 % Lauren Podlogar [employer]EN [employer].NURSING STAFFING COORDINATOR Work Phone: [facility] 01-06-2024 09:36-0400 Systolic blood pressure 128 mm[Hg] Lauren Podlogar [employer].NURSING STAFFING COORDINATOR Work Phone: [facility] 09-08-2023 14:30-0400 Body temperature 96.62 [degF] JEAN PIERRE ARREAGA MD [facility] 09-08-2023 14:30-0400 Diastolic Blood Pressure Non-Invasive 50 mm[Hg] JEAN PIERRE ARREAGA MD [facility] 09-08-2023 14:30-0400 Heart rate 53 /min JEAN PIERRE ARREAGA MD [facility] 09-08-2023 14:30-0400 Respiratory rate 16 /min JEAN PIERRE ARREAGA MD [facility] 09-08-2023 14:30-0400 Systolic Blood Pressure Non-Invasive 140 mm[Hg] JEAN PIERRE ARREAGA MD [address] [place] [address] 09-08-2023 14:13-0400 Body temperature 96.98 [degF] JEAN PIERRE ARREAGA MD [address] [place] [address] 09-08-2023 14:13-0400 Diastolic Blood Pressure Non-Invasive 49 mm[Hg] JEAN PIERRE ARREAGA MD [address] [place] [address] 09-08-2023 14:13-0400 Heart rate 51 /min JEAN PIERRE ARREAGA MD [address] [place] [address] 09-08-2023 14:13-0400 Mean blood pressure 74 mm[Hg] JEAN PIERRE ARREAGA MD [address] 09-08-2023 14:13-0400 Respiratory rate 16 /min JEAN PIERRE ARREAGA MD [address] [place] [id number] 09-08-2023 14:13-0400 Systolic Blood Pressure Non-Invasive 134 mm[Hg] JEAN PIERRE ARREAGA MD [address] [place] [id number] 09-08-2023 13:58-0400 Diastolic Blood Pressure Non-Invasive 49 mm[Hg] JEAN PIERRE ARREAGA MD [address] [place] [id number] 09-08-2023 13:58-0400 Heart rate 45 /min JEAN PIERRE ARREAGA MD [address] [place] [id number] 09-08-2023 13:58-0400 Mean blood pressure 74 mm[Hg] JEAN PIERRE ARREAGA MD [address] [place] [id number] 09-08-2023 13:58-0400 Respiratory rate 16 /min JEAN PIERRE ARREAGA MD [address] [place] [id number] 09-08-2023 13:58-0400 Systolic Blood Pressure Non-Invasive 130 mm[Hg] JEAN PIERRE ARREAGA MD [address] [place] [id number] 09-08-2023 13:43-0400 Body temperature 96.98 [degF] JEAN PIERRE ARREAGA MD [address] [place] [id number] 09-08-2023 13:43-0400 Heart rate 44 /min JEAN PIERRE ARREAGA MD [address] [place] [id number] 09-08-2023 13:43-0400 Mean blood pressure 73 mm[Hg] JEAN PIERRE ARREAGA MD [address] [place] [id number] 09-08-2023 13:35-0400 Body temperature 95.05 [degF] JEAN PIERRE ARREAGA MD [address] [place] [address] 09-08-2023 13:35-0400 Respiratory Rate - Anes 23 br/min JEAN PIERRE ARREAGA MD [address] [place] [address] 09-08-2023 13:30-0400 Body temperature 94.95 [degF] JEAN PIERRE ARREAGA MD [address] [place] [address] 09-08-2023 13:30-0400 Respiratory Rate - Anes 21 br/min JEAN PIERRE ARREAGA MD [address] [place] [address] 09-08-2023 13:25-0400 Body temperature 94.75 [degF] JEAN PIERRE ARREAGA MD [address] [place] [address] 09-08-2023 13:25-0400 Respiratory Rate - Anes 11 br/min JEAN PIERRE ARREAGA MD [address] [place] [address] 09-08-2023 11:18-0400 Body height 170.2 cm JEAN PIERRE ARREAGA MD [address] [place] [address] 09-08-2023 11:18-0400 Body weight 98.7 kg JEAN PIERRE ARREAGA MD [address] [place] [address] 09-08-2023 10:55-0400 Heart rate 56 /min JEAN PIERRE ARREAGA MD [address] [place] [address] 12-06-2022 09:18-0400 Body weight 97.98 kg Lauren Podlogar KITCHEN HAND.NURSING STAFFING COORDINATOR Work Phone: [facility] 12-06-2022 09:18-0400 Diastolic blood pressure 60 mm[Hg] Lauren Podlogar KITCHEN HAND.NURSING STAFFING COORDINATOR Work Phone: [facility] 12-06-2022 09:18-0400 Heart rate 50 /min Lauren Podlogar KITCHEN HAND.NURSING STAFFING COORDINATOR Work Phone: [facility] 12-06-2022 09:18-0400 Respiratory rate 16 /min Lauren Podlogar KITCHEN HAND.NURSING STAFFING COORDINATOR Work Phone: [facility] 12-06-2022 09:18-0400 SaO2% (BldA) [Mass fraction] 96 % Lauren Podlogar KITCHEN HAND.NURSING STAFFING COORDINATOR Work Phone: [facility] 12-06-2022 09:18-0400 Systolic blood pressure 128 mm[Hg] Lauren Podlogar KITCHEN HAND.NURSING STAFFING COORDINATOR Work Phone: [facility] 09-06-2022 09:54-0400 Body weight 99.52 kg Lauren Podlogar KITCHEN HAND.NURSING STAFFING COORDINATOR Work Phone: [facility] 09-06-2022 09:54-0400 Diastolic blood pressure 62 mm[Hg] Lauren Podlogar KITCHEN HAND.NURSING STAFFING COORDINATOR Work Phone: [facility] 09-06-2022 09:54-0400 Heart rate 58 /min Lauren Podlogar KITCHEN HAND.NURSING STAFFING COORDINATOR Work Phone: [facility] 09-06-2022 09:54-0400 Respiratory rate 18 /min Lauren Podlogar KITCHEN HAND.NURSING STAFFING COORDINATOR Work Phone: [facility] 09-06-2022 09:54-0400 SaO2% (BldA) [Mass fraction] 93 % Lauren Podlogar KITCHEN HAND.NURSING STAFFING COORDINATOR Work Phone: [facility] 09-06-2022 09:54-0400 Systolic blood pressure 138 mm[Hg] Lauren Podlogar KITCHEN HAND.NURSING STAFFING COORDINATOR Work Phone: [facility] 06-07-2022 11:12-0500 Diastolic blood pressure 62 mm[Hg] Husam Yan MD Work Phone: [facility] 06-07-2022 11:12-0500 Systolic blood pressure 144 mm[Hg] Husam Yan MD Work Phone: [facility] 06-07-2022 10:29-0500 Body weight 98.7 kg Husam Yan MD Work Phone: [facility] 06-07-2022 10:29-0500 Heart rate 58 /min Husam Yan MD Work Phone: [facility] 06-07-2022 10:29-0500 Respiratory rate 16 /min Husam Yan MD Work Phone: [facility] 06-07-2022 10:29-0500 SaO2% (BldA) [Mass fraction] 96 % Husam Yan MD Work Phone: [facility] 03-05-2022 09:46-0400 Body weight 98.16 kg Husam Yan MD Work Phone: [facility] 03-05-2022 09:46-0400 Diastolic blood pressure 60 mm[Hg] Husam Yan MD Work Phone: [facility] 03-05-2022 09:46-0400 Heart rate 58 /min Husam Yan MD Work Phone: [facility] 03-05-2022 09:46-0400 Respiratory rate 16 /min Husam Yan MD Work Phone: [facility] 03-05-2022 09:46-0400 Systolic blood pressure 136 mm[Hg] Husam Yan MD Work Phone: [facility] 11-06-2021 09:22-0400 Body height 172.[address] Jean Yan Work Phone: [facility] Work Phone: 11-06-2021 09:22-0400 Body weight 97.[address] Jean Yan Work Phone: [facility] Work Phone: 11-05-2021 09:04-0400 Body mass index (BMI) [Ratio] 32.5 kg/m2 Dr. Jean Yan Work Phone: [facility] Work Phone: 10-21-2021 14:22-0400 Body mass index (BMI) [Ratio] 32.5 kg/m2 Dr. Jean Yan Work Phone: [facility] Work Phone: 10-21-2021 14:22-0400 Body temperature 98 [degF] Dr. Jean Yan Work Phone: [facility] Work Phone: 10-21-2021 14:22-0400 Body weight 97.[address] Jean Yan Work Phone: [facility] Work Phone: 10-21-2021 14:22-0400 Diastolic blood pressure 75 mm[Hg] Dr. Jean Yan Work Phone: [facility] Work Phone: 10-21-2021 14:22-0400 Heart rate 43 /min Dr. Jean Yan Work Phone: [facility] Work Phone: 10-21-2021 14:22-0400 Respiratory rate 16 /min Dr. Jean Yan Work Phone: [facility] Work Phone: 10-21-2021 14:22-0400 SaO2% (BldA) [Mass fraction] 93 % Dr. Jean Yan Work Phone: [facility] Work Phone: 10-21-2021 14:22-0400 Systolic blood pressure 166 mm[Hg] Dr. Jean Yan Work Phone: [facility] Work Phone: 10-27-2016 15:34-0400 Heart rate 69 /min [facility] Work Phone: 10-27-2016 15:09-0400 BMI (Body Mass Index) 33.15 kg/m2 [facility] Work Phone: 10-27-2016 15:09-0400 Body weight 101.83 kg Carmen Blu [facility] Work Phone: 10-27-2016 15:09-0400 BP Diastolic 70 mm[Hg] [facility] Work Phone: 10-27-2016 15:09-0400 BP Systolic 152 mm[Hg] Carmen Blu [facility] Work Phone: 10-27-2016 15:09-0400 Height 175.26 cm Carmen Blu [facility] Work Phone: 10-27-2016 15:09-0400 Pulse (Heart Rate) 64 /min Carmen Blu [facility] Work Phone: 10-27-2016 15:09-0400 Respiratory Rate 20 /min Carmen Blu [facility] Work Phone: 10-27-2016 15:09-0400 Weight 101.83 kg Carmen Blu [facility] Work Phone: Encounters Encounter Date Encounter Type Care Provider Facility Start: 01-25-2025 Evaluation and manag ement of inpatient Dr. Nando Wiggins MD Work Phone: -Medical Surgical 3 Start: 01-25-2025 Dr. [facility] Work Phone: Start: 01-25-2025 Dr. Hakan padron MD -[facility] Start: 01-23-2025 ambulatory Nando Wiggins OLS Fa cility:[facility] Start: 01-23-2025 Nando Wiggins MD [facility] Start: 12-26-2024 End: 12-26-[address] Nando Wiggins MD Work Phone: [facility] Start: 12-26-2024 End: 12-26-2024 Grecia Duran [facility] Work Phone: Start: 12-24-2024 ambulatory Nando Wiggins OLS Fa cility:[facility] Start: 12-24-2024 Nando Wiggins MD [facility] Start: 12-21-2024 End: 12-21-[address] Nando Wiggins MD Work Phone: [facility] Start: 12-21-2024 End: 12-21-2024 [facility] Start: 12-20-2024 End: 12-20-[address] Nando Wiggins MD Work Phone: [facility] Start: 12-20-2024 End: 12-20-2024 [facility] Start: 12-19-2024 ambulatory Effili Wiggins OLS Fa cility:[facility] Start: 12-19-2024 [facility] Start: 12-12-2024 ambulatory Effili Wiggins OLS Fa cility:[facility] Start: 12-12-2024 Nando Wiggins MD [facility] Start: 12-11-2024 End: 12-11-2024 Telephone encounter William Chilel MD Work Phone: Cardiology Comment on above: Courtesy call ([facility] e survey) Start: 11-30-2024 End: 11-30-[address] Nando Wiggins MD Work Phone: [facility] Start: 11-30-2024 End: 11-30-2024 Meredith STEWART -[facility] Work Phone: Start: 11-23-2024 End: 11-28-2024 Evaluation and management of inpatient HUSAM YAN Facility:[facility] Start: 11-22-2024 End: 11-23-2024 Dr. Nando Wiggins MD Work Phone: -Emergency Department Work Phone: Start: 11-22-2024 End: 11-23-2024 Emergency department patient visit Dr. Nando Wiggins MD Work Phone: -Emergency Department Start: 11-12-2024 ambulatory Nando SHERWOOD Fa cility:[facility] Start: 11-12-2024 Nando [facility] Start: 11-08-2024 End: 11-09-2024 Dr. Nando Wiggins MD Work Phone: -Emergency Department Work Phone: Start: 11-08-2024 End: 11-09-2024 Emergency department patient visit Dr. Nando Wiggins MD Work Phone: [facility] Work Phone: Start: 11-05-2024 ambulatory Nando Hernandez cility:[facility] Start: 11-05-2024 Nando Wiggins MD [facility] Start: 11-02-2024 End: 11-02-[address] Nando Wiggins MD Work Phone: -[facility] Start: 11-02-2024 End: 11-02-2024 Meredith STEWRAT -[facility] Work Phone: Start: 10-29-2024 End: 10-29-2024 ambulatory Nando Wiggins Facility:[facility] Start: 10-29-2024 End: 10-29-2024 Pooja STEWART -[facility] Work Phone: Start: 10-22-2024 ambulatory Nando SHERWOOD Fa cility:[facility] Start: 10-22-2024 Nando Wiggins MD [facility] Start: 10-17-2024 End: 10-17-2024 Salma MINER [facility] Work Phone: Start: 10-17-2024 End: 10-17-2024 ambulatory Salma Cervantes Facility:[facility] Start: 10-16-2024 End: 10-16-[address] Nando Wiggins MD Work Phone: [facility] Start: 10-16-2024 End: 10-16-2024 Nando Wiggins MD [facility] Start: 10-08-2024 ambulatory Nando SHERWOOD Fa cility:[facility] Start: 10-08-2024 Nando Wiggins MD [facility] Start: 10-03-2024 End: 10-03-2024 Salma MINER [facility] Work Phone: Start: 10-03-2024 End: 10-03-[address] Jean Yan MD Work Phone: [facility] Work Phone: Start: 10-02-2024 End: 10-02-[address] Nando Wiggins MD Work Phone: [facility] Work Phone: Start: 10-02-2024 End: 10-02-2024 Nando Wiggins MD [facility] Start: 10-02-2024 End: 10-02-2024 ambulatory Nando SHERWOOD Facility:[facility] Start: 09-24-2024 ambulatory Warren Whitaker ty:[facility] Start: 09-24-2024 Dr. Randal Damico MD - H-[facility] Start: 09-24-2024 End: 10-18-[address] Jean Yan MD Work Phone: [facility] Work Phone: Start: 09-24-2024 End: 10-18-2024 Dr. R[facility] Work Phone: Start: 09-24-2024 End: 09-24-2024 ambulatory Efewlilian Brownee OLS Facility:[facility] Start: 09-21-2024 ambulatory Salma Cervantes Facility:[facility] Start: 09-17-2024 End: 09-17-2024 Nando Wiggins MD [facility] Start: 09-17-2024 End: 09-17-2024 ambulatory Efewsrinathbe Holliee OLS Facility:[facility] Start: 09-12-2024 End: 09-12-[address] Jean Yan MD Work Phone: [facility] Work Phone: Start: 09-12-2024 End: 09-12-2024 Nando Wiggins MD [facility] Start: 09-12-2024 End: 09-12-2024 ambulatory Efewongbe Olelakshmie OLS Facility:[facility] Start: 09-10-2024 ambulatory Efewongbe Holliee OLS Fa cility:[facility] Start: 09-10-2024 Nando Wiggins MD [facility] Start: 09-05-2024 End: 09-05-2024 ambulatory Efewongbe Oleghe Facility:[facility] Start: 09-05-2024 End: 09-05-2024 Meredith STEWART -[facility] Work Phone: Start: 09-04-2024 Salma MINER -[facility] Start: 09-03-2024 Dr. Earl White MD -[facility] Start: 09-03-2024 Dr. Randal Damico MD -[facility] Start: 09-02-2024 Salma MINER -[facility] Start: 09-01-2024 Salma MINER [facility] Start: 08-31-2024 ambulatory Earl White Facility:[facility] Start: 08-31-2024 Dr. Randal Damico MD -[facility] Start: 08-31-2024 Salma MINER -[facility] Start: 08-30-2024 Salma MINER -[facility] Start: 08-30-2024 Dr. Randal Damico MD - [facility] Start: 08-29-2024 ambulatory Earl White Facility:[facility] Start: 08-29-2024 End: 09-04-2024 Evaluation and management of inpatient [facility] Facility:[facility] Start: 08-29-2024 End: 09-04-2024 Dr. aErl White MD -Medical Surgical 3 Work Phone: Start: 08-29-2024 Dr. Earl White MD -[facility] Start: 08-29-2024 ambulatory Earl Christopher Facility:[facility] Start: 08-28-2024 ambulatory Nando SHERWOOD Fa cility:[facility] Start: 08-28-2024 Nando Wiggins MD [facility] Start: 08-27-2024 ambulatory Warren Mendoza Facili ty:[facility] Start: 08-27-2024 Dr. Randal Damico MD -[facility] Start: 08-27-2024 End: 09-19-2024 ambulatory Randal Damico Facility:[facility] Start: 08-27-2024 End: 09-19-2024 Dr. Randal [facility] Work Phone: Start: 08-27-2024 End: 08-27-2024 ambulatory Nando SHERWOOD Facility:[facility] Start: 08-20-2024 ambulatory Randal Damico Facility:[facility] Start: 08-20-2024 Dr. Randal Damico MD - [facility] Start: 08-20-2024 End: 08-20-2024 ambulatory Warren Mendoza Facility:[facility] Start: 08-20-2024 End: 08-20-2024 Dr. Randal Damico [facility] Work Phone: Start: 08-17-2024 ambulatory Salma Cervantes Facility:[facility] Start: 08-14-2024 End: 08-14-2024 [facility] Start: 08-14-2024 End: 08-14-2024 Dr. Nando Wiggins MD -[facility] Work Phone: Start: 08-13-2024 ambulatory Randal Damico Facility:[facility] Start: 08-13-2024 End: 08-13-2024 Dr. Randal Damico MD -[facility] Start: 08-13-2024 End: 08-13-2024 [facility] Facility:[facility] Start: 08-06-2024 ambulatory Randal Mookie Facility:[facility] Start: 08-06-2024 Dr. Randal Damico MD -[facility] Start: 08-01-2024 End: 08-01-2024 Emergency department patient visit [facility] Facility:[facility] Start: 08-01-2024 End: 08-01-[facility] Start: 08-01-2024 End: 08-01-2024 Dr. Des Garcia DO -[facility] Work Phone: Start: 07-31-2024 End: 07-31-2024 [facility] Start: 07-31-2024 End: 07-31-2024 Meredith STEWART -[facility] Work Phone: Start: 07-30-2024 ambulatory Warren Whitaker ty:[facility] Start: 07-30-2024 Dr. Randal Damico MD - [facility] Start: 07-23-2024 ambulatory Warren Whitaker ty:[facility] Start: 07-23-2024 Dr. Randal Damico MD - [facility] Start: 07-20-2024 Dr. Margarette Godinez DO -[facility] Work Phone: Start: 07-20-2024 ambulatory Earl White Facility:[facility] Start: 07-20-2024 Dr. Earl White MD -[facility] Start: 07-19-2024 Dr. Margarette Godinez DO [facility] Inpatient Physicians Work Phone: Start: 07-18-2024 ambulatory Earl White Facility:[facility] Start: 07-18-2024 Dr. Earl White MD -[facility] Start: 07-18-2024 Dr. Marg[facility] Work Phone: Start: 07-17-2024 Dr. Jayla Osuna MD -[facility] Physicians Work Phone: Start: 07-16-2024 ambulatory Efewsrinathbe Holliee Facili ty:[facility] Start: 07-16-2024 Dr. Zenaida Cooper MD -[facility] Start: 07-15-2024 Dr. Juan Antonio Holden MD -[facility] Inpatient Physicians Work Phone: Start: 07-14-2024 Dr. Juan Antonio Holden MD [facility] In[facility] Work Phone: Start: 07-13-2024 End: 07-20-2024 Evaluation and management of inpatient Jayla Osuna Facility:[facility] Start: 07-13-2024 End: 07-20-2024 Dr. Margarette Godinez DO -[facility] Surgical 3 Work Phone: Start: 07-13-2024 ambulatory Jaylawesley Osuna Facility:[facility] Start: 07-13-2024 End: 07-13-2024 ambulatory Efewongbe Holliee Facility:[facility] Start: 07-13-2024 End: 07-13-2024 Meredith MEZAC -[facility] Work Phone: Start: 07-11-2024 End: 07-12-2024 [facility] [place] Comment on above: Population Health Na vigation Outreach ([place]) Start: 07-11-2024 End: 07-20-2024 [facility]ulatory [facility] Start: 07-11-2024 End: 07-20-2024 Dr. Randal Damico MD [facility] Work Phone: Start: 07-10-2024 End: 07-10-2024 ambulatory [facility] Facility:[facility] Start: 07-10-2024 End: 07-10-2024 Meredith STEWART -[facility] Work Phone: Start: 07-09-2024 End: 07-10-2024 Refill Rad[facility] Comment on above: Refill Request Start: 07-09-2024 Nando Bravo Start: 07-07-2024 End: 07-07-2024 Dr. Alicia Loo DO -Emergency Departmen t Work Phone: Start: 07-07-2024 End: 07-07-2024 Emergency department patient visit [facility] Facility:[facility] Start: 07-03-2024 End: 07-03-2024 Dr. Eric Franklin MD -Emergency Departmen t Work Phone: Start: 07-03-2024 End: 07-03-2024 Emergency department patient visit [facility] Facility:[facility] Start: 07-02-2024 Dr. Fernando stein DO -[place] [facility] Work Phone: Start: 07-02-2024 End: 07-02-2024 ambulatory [facility] Facility:[facility] Start: 07-02-2024 End: 07-02-2024 Dr. Fernando Oliveros DO -Progressive Care Unit Work Phone: Start: 06-25-2024 ambulatory [facility] OLS Fa cility:[facility] Start: 06-25-2024 Nando [place]iss[place]ou Bravo Start: 06-20-2024 End: 06-20-2024 [facility] Work [facility]: Start: 06-20-2024 End: 06-20-2024 ambulatory Salma Cervantes Facility:[facility] Start: 06-19-2024 End: 06-22-2024 ambulatory Warren Mendoza Facility:[facility] Start: 06-19-2024 End: 06-22-2024 Dr. Des Ruelas DPM -[facility] Work Phone: Start: 06-18-2024 ambulatory Nando Meeklakshmie OLS Fa cility:[facility] Start: 06-18-2024 Nando Bravo Start: 06-11-2024 End: 06-11-2024 Patient encounter procedure Danilo Pena MA [facility] Comment on above: Population Health Na vigation Outreach ([facility]) Start: 06-11-2024 End: 06-11-2024 ambulatory Danilo Pena MA [employer] Start: 06-11-2024 Nando Bravo Start: 06-08-2024 ambulatory Nando SHERWOOD Fa cility:[facility] Start: 06-08-2024 Nando Bravo Start: 06-06-2024 End: 06-06-2024 ambulatory Nando Wiggins Facility:[facility] Start: 06-06-2024 End: 06-06-[address] [facility] Work Phone: Start: 06-06-2024 End: 06-06-2024 ambulatory Des Ruelas Facility:[facility] Start: 06-06-2024 End: 06-06-2024 Dr. Des Ruelas DPM -Surgical Day Care Start: 06-06-2024 End: 06-06-2024 ambulatory Nando Brownedesiree SHERWOOD Facility:[facility] Start: 06-04-2024 End: 06-04-2024 ambulatory Efbiancaongbe Holliee Facility:[facility] Start: 05-30-2024 End: 06-05-2024 Telephone encounter Husam Yan MD Work Phone: [facility] Comment on above: Patient Update; Fill out Surgical Release Forms Start: 05-28-2024 ambulatory Efewongbe Holliee OLS Fa cility:[facility] Start: 05-22-2024 ambulatory Earl White Facility:[facility] Start: 05-22-2024 End: 05-22-2024 ambulatory Earl White Facility:[facility] Start: 05-21-2024 ambulatory Nando Wiggins OLS Fa cility:[facility] Start: 05-17-2024 ambulatory Warren Mendoza Facili ty:[facility] Start: 05-17-2024 End: 05-22-2024 ambulatory Warren Mendoza Facility:[facility] Start: 05-15-2024 End: 05-15-2024 ambulatory Nando Wiggins Facility:[facility] Start: 05-11-2024 End: 05-11-2024 ambulatory Meredith Guevara NP Facility:[facility] Start: 05-04-2024 ambulatory Deni Shields Fac ility:[facility] Start: 05-04-2024 End: 05-10-2024 ambulatory Earl White Facility:[facility] Start: 05-04-2024 End: 05-10-2024 Evaluation and management of inpatient Jaswant Montgomery Facility:[facility] Start: 05-02-2024 ambulatory Jean Yan Faci lity:[facility] Start: 04-23-2024 End: 04-23-2024 [facility] Start: 04-23-2024 End: 04-23-2024 Patient encounter procedure Sridevi Miller MA [facility] Comment on above: Population Health Na vigation Outreach ([facility] ) Start: 04-16-2024 ambulatory Earl White Facility:[facility] Start: 04-16-2024 End: 04-16-2024 ambulatory Itz Mahan Facility:[facility] Start: 04-14-2024 End: 04-24-2024 Evaluation and management of inpatient Warren Mendoza Facility:[facility] Start: 04-14-2024 ambulatory Earl White Facility:[facility] Start: 04-14-2024 End: 04-14-2024 ambulatory HUSAM YAN Facility:[facility] Start: 04-14-2024 End: 04-14-2024 Patient encounter procedure Usman Quesada APRN.NURSING STAFFING COORDINATOR Work Phone: [facility] Comment on above: Right foot infection (Primary Dx) Start: 04-13-2024 End: 04-17-2024 Telephone encounter Lauren Arzola APRN.LUZ Work Phone: [facility] [place] Comment on above: blood sugar reading average Start: 04-05-2024 End: 04-06-2024 Telephone encounter Lauren Arzola APRN.LUZ Work Phone: [facility] [place] Comment on above: blood sugar average Start: 03-28-2024 End: 03-28-2024 Patient encounter procedure Lauren Arzola APRN.NURSING STAFFING COORDINATOR Work Phone: [facility] [place] Comment on above: 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, without long-term current use of insulin (HCC) (Primary Dx); 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) Start: 03-28-2024 End: 03-28-2024 ambulatory LAUREN PODLOGAR Facility:[facility] Start: 01-06-2024 End: 01-06-2024 Patient encounter procedure Lauren Arzola APRN.[facility] Work Phone: [facility] [place] Comment on above: 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, with long-term current use of insulin (HCC) (Primary Dx); 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); Chronic diastolic heart failure (HCC); Mobitz (type) I (Wenckebach's) atrioventricular block; Lower extremity edema; Essential hypertension; Mixed hyperlipidemia Start: 01-06-2024 End: 01-06-2024 ambulatory LAUREN PODLOGAR Facility:[facility] Start: 12-15-2023 End: 02-02-2024 Refill Husam Yan MD Work Phone: [facility] [place] Comment on above: Refill Request (See Rx notes) Start: 09-08-2023 End: 09-08-2023 ambulatory JEAN PIERRE ARREAGA MD Facility:A Start: 09-08-2023 End: 09-08-2023 SAME DAY STAY JEAN PIERRE ARREAGA MD [facility] Start: 09-06-2023 Telephone encounter Jean Yan MD Work Phone: [facility] [place] Comment on above: Medication Request Start: 08-08-2023 Telephone encounter Jean Yan MD Work Phone: [facility] [place] Comment on above: Medication Problem ( [employer]estyle toribio 14 day sensor kit - patient's sensor reader is a toribio 2 and the sensors ordered by our office are incompatible with his reader ) Start: 07-28-2023 Refill Husam Yan MD Work Phone: [facility] Comment on above: Refill Request Start: 07-12-2023 Refill Husam Yan MD Work Phone: [facility] [place] Comment on above: Refill Request Start: 07-11-2023 Refill Husam Yan MD Work Phone: [facility] Comment on above: Refill Request Start: 06-27-2023 End: 06-27-2023 Patient encounter procedure Danilo Cadeeugene Work Phone: Podiatry Comment on above: 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, without long-term current use of insulin (HCC) (Primary Dx); Onychomycosis; Left foot pain; Right foot pain Start: 03-15-2023 Telephone encounter Jean Yan MD Work Phone: [facility] [place] Comment on above: [facility] requesting records Start: 03-08-2023 Telephone encounter Jean Yan MD Work Phone: [facility] [place] Comment on above: Medication Problem Start: 02-23-2023 Telephone encounter Jean Yan MD Work Phone: [facility] [place] Comment on above: Insurance Authorizat ion Start: 01-04-2023 Refill Husam Yan MD Work Phone: [facility] [place] Start: 12-06-2022 End: 12-06-2022 Patient encounter procedure Lauren Arzola APRN.NURSING STAFFING COORDINATOR [facility] Phone: [facility] Comment on above: 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, without long-term current use of insulin ([facility]) (Primary Dx); Lower extremity edema; ESRD (end stage renal disease) on dialysis ([facility]); Chronic diastolic heart failure ([facility]); Essential hypertension; Mobitz (type) I (Wenckebach's) atrioventricular block; At high risk for falls Start: 11-15-2022 Refill Husam Yan MD [facility]: [facility] Comment on above: Refill Request Start: 11-04-2022 Refill Husam [facility] MD [facility]: [facility] Comment on above: Refill Request Start: 10-27-2022 Refill Husam Yan MD Work Phone: [facility] [place] Comment on above: Refill Request Start: 09-06-2022 End: 09-06-2022 Patient encounter procedure Lauren Arzola APRN.NURSING STAFFING COORDINATOR Work Phone: [facility] [place] Comment on above: 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, without long-term current use of insulin ([facility]) (Primary Dx); ESRD (end stage renal disease) on dialysis ([facility]); Chronic diastolic heart failure (HCC) Start: 08-19-2022 Refill Husam Yan MD [facility]: [facility] Comment on above: Refill Request Start: 06-08-2022 Telephone encounter Jean Yan MD Work Phone: [facility] [place] Comment on above: Results Start: 06-07-2022 End: 06-07-2022 Patient encounter procedure Husam Yan MD [facility]: [facility] Comment on above: Type 2 diabetes hernan [...] Telephone encounter Jean Yan MD Work Phone: [facility] Comment on above: Results Start: 03-05-2022 End: 03-05-2022 Patient encounter procedure Husam Yan MD Work Phone: [facility] Comment on above: 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, without long-term current use of insulin (HCC) (Primary Dx); Essential hypertension; Mixed hyperlipidemia; 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); Need for COVID-19 vaccine Start: 02-03-2022 Telephone encounter Jean Yan MD Work Phone: [facility] Comment on above: Insurance Authorizat ion (Information on Glargine) Start: 02-02-2022 Refill Husam Yan MD Work Phone: [facility] Comment on above: Refill Request Start: 01-26-2022 Refill Husam Yan MD Work Phone: [facility] Comment on above: Refill Request Start: 12-14-2021 Refill Husam Yan MD Work Phone: [facility] Comment on above: Refill Request Start: 11-06-2021 Non-patient / Non-visit [facility]. Mike [facility] Start: 11-06-2021 End: 11-06-2021 Admission to same day surgery center Dr. Jean Yan Work Phone: [facility]Special Procedures Start: 10-21-2021 End: 10-21-[address] 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 Yasir Yan Work Phone: [facility] Procedures Date Procedure Procedure Detail Performing Clinician Start: 01-25-2025 X-ray of knee, one o r two views Dr. Nando Wiggins MD Work Phone: Start: 01-25-2025 Blood count smear mc rscp w/mnl difrntl wbc count Dr. Nando Wiggins MD Work Phone: Start: 01-25-2025 Mean corpuscular hemoglobin concentration determination Dr. Nando Wiggins MD Work Phone: Start: 01-25-2025 Nucleated red blood cell count procedure Dr. Nando Wiggins MD Work Phone: Start: 01-25-2025 Platelet mean volume determination Dr. Nando Wiggins MD Work Phone: Start: 01-25-2025 Plain chest X-ray Dr. Desiree Wiggins MD Work Phone: Start: 01-25-2025 Plain x-ray of pelvi s and lower extremity Dr. Nando Wiggins MD Work Phone: Start: 01-25-[address] Nando Wiggins MD Work Phone: Start: 01-23-2025 Blood count smear mc rscp w/mnl difrntl wbc count Dr. Nando Wiggins MD Work Phone: Start: 01-23-2025 Mean corpuscular hemoglobin concentration determination Dr. Nando Wiggins MD Work Phone: Start: 01-23-2025 Nucleated red blood cell count procedure Dr. Nando Wiggins MD Work Phone: Start: 01-23-2025 Platelet mean volume determination Dr. Nando Wiggins MD Work Phone: Start: 12-24-2024 Blood count smear mc rscp w/mnl difrntl wbc count Dr. aNndo Wiggins MD Work Phone: Start: 12-24-2024 Mean corpuscular hemoglobin concentration determination Dr. Nando Wiggins MD Work Phone: Start: 12-24-2024 Nucleated red blood cell count procedure Dr. Nando Wiggins MD Work Phone: Start: 12-24-2024 Platelet mean volume determination Dr. Nando Wiggins MD Work Phone: Start: 12-19-2024 Vitamin D, 25-hydrox y measurement Dr. Nando Wiggins MD Work Phone: Start: 12-12-2024 Vitamin D, 25-hydrox y measurement Dr. Nando Wiggins MD Work Phone: Start: 11-27-2024 Antibody screen JUAN ANTONIO PHER [facility]IN[facility] Comment on above: Order Comment: Speci men Type: BLOOD SPECIMENOrdering Facility: [facility] Address: [address] [place] [address] Performed By: #### T SCR ####CC MAIN BLOOD BANKCLIA [id number] [address] Start: 11-23-2024 Antibody screen JUAN ANTONIO PHER VIPINLEY Comment on above: Order Comment: Speci men Type: BLOOD SPECIMENOrdering Facility: [facility] Address: [address] [place] [address] Performed By: #### T SCR ####CC [facility] SAULT BLOOD BANKCLIA [id number] [facility] [id number] [place] Start: 11-22-2024 Plain chest X-ray [...] foot, three or more views Dr. Nando Wgigins MD Work Phone: Start: 11-08-2024 CT of [...] 07-07-2024 CT of head without contrast Dr. Jena Yan MD Work Phone: Start: 07-07-2024 Anion [...] Work Phone: Start: 06-11-2024 Blood count smear rscp w/mnl difrntl wbc [...] 06-06-2024 End: 06-06-2024 Microbial culture, routine Dr. aMrco A Yan MD Work Phone: Start: 06-06-[address] Mike Yan MD Work Phone: Start: 06-06-2024 X-ray of foot, three or more views Dr. eJan Yan MD Work Phone: Start: 09-05-2023 Cataract extraction and insertion of intraocular lens JEAN PIERRE ARREAGA MD Comment on above: RIGHT EYE Start: 12-06-2022 Hemoglobin A1c/Hemoglobin.total in Blood Lauren Podlogar KITCHEN HAND.NURSING STAFFING COORDINATOR Work Phone: Start: 09-06-2022 Hemoglobin A1c/Hemoglobin.total in Blood Lauren Podlogar KITCHEN HAND.NURSING STAFFING COORDINATOR Work Phone: Start: 03-05-2022 PFIZER-BIONTECH COVI D-19 BIVALENT BOOSTER VACCINE, AGE 12+ YR Husam Yan MD Work Phone: Start: 05-23-2021 Angioplasty of blood vessel JEAN PIERRE ARREAGA MD Comment on above: LEFT UPPER EXTREMITY FISTULOGRA IWTH CUTTING BALLON ANGIOPLASTY Start: 03-04-2021 Radex foot complete minimum 3 views Husam Yan MD Work Phone: Start: 11-17-2016 End: 11-17-2016 Kirt Bacon MD Start: 11-17-2016 End: 11-17-2016 Nuclear [...] HAD IN THE LATE S OR EARLY S Tooth extraction JEAN PIERRE ARREAGA MD Comment on above: ALL TEETH REMOVED Plan of Treatment Date Care Activity Detail Author Start: 04-26-2028 Urine microalbumin profile [facility] Start: 11-23-2025 Hepatitis B surface antibody level LDL Cholesterol [facility] Start: 09-17-2025 Glaucoma screening Dilated Retinal Exam [facility] Start: 05-26-2025 Hemoglobin A1c measurement HbA1C [facility] Start: 01-26-2025 Fluoroscopic guidance [facility] Start: 01-26-2025 Plain X-ray of femur [facility] Start: 01-25-2025 Admission procedure [facility] Start: 01-25-2025 Hospital admission, emergency, from emergency room, medical nature [facility] Start: 01-21-2025 Influenza [facility] Start: 01-08-2025 End: 01-08-2025 Patient encounter procedure 01/08/2025 10:30 AM EDT Appointment Cardiology [address] [place] [id number] OUTPATIENT 4-6W DEVICE CHECK (PACEMAKER) Cardiology Comment on above: OUTPATIENT 4-6W DEVICE CHECK (PACEMA KER) Start: 11-22-2024 End: 11-22-2024 [facility] Start: 11-08-2024 [facility] Start: 09-04-2024 Patient discharge [facility] Start: 09-04-2024 End: 09-04-2024 [facility] Start: 09-04-2024 Hemodialysis care [facility] Start: 09-03-2024 Application of intermittent pneumatic compression device [facility] Start: 09-03-2024 Wound care [facility] Start: 09-03-2024 [facility] Start: 09-01-2024 End: 09-01-2024 [facility] Start: 09-01-2024 Hemodialysis care [facility] Start: 09-01-2024 Inhalation therapy procedure [facility] Start: 08-30-2024 Following clinical pathway protocol [facility] Start: 08-30-2024 [facility] Start: 08-30-2024 End: 08-30-2024 [facility] Start: 08-30-2024 Hemodialysis care [facility] Start: 08-30-2024 Referral to zigzag tunnel elastic operator [facility] Start: 08-29-2024 Following clinical pathway protocol [facility] Start: 08-29-2024 Assessment of risk of venous thromboembolism [facility] Start: 08-29-2024 Care regimes management [facility] Start: 08-29-2024 Insertion of catheter into peripheral vein [facility] Start: 08-29-2024 Notification of physician [facility] Start: 08-29-2024 Providing care according to standard [facility] Start: 08-29-2024 Referral to occupational therapist [facility] Start: 08-29-2024 Referral to service [facility] Start: 08-29-2024 End: 08-29-2024 [facility] Start: 08-29-2024 Admission procedure [facility] Start: 08-01-2024 [facility] Start: 07-20-2024 Patient discharge [facility] Start: 07-19-2024 End: 07-19-2024 [facility] Start: 07-19-2024 Hemodialysis care [facility] Start: 07-17-2024 End: 07-17-2024 [facility] Start: 07-17-2024 Hemodialysis care [facility] Start: 07-17-2024 Wound care [facility] Start: 07-16-2024 Following clinical pathway protocol [facility] Start: 07-16-2024 Inhalation therapy procedure [facility] Start: 07-14-2024 [facility] Start: 07-14-2024 Consultation [facility] Start: 07-14-2024 End: 07-14-2024 [facility] Start: 07-14-2024 Hemodialysis care [facility] Start: 07-13-2024 Application of intermittent pneumatic compression device [facility] Start: 07-13-2024 Assessment of risk of venous thromboembolism [facility] Start: 07-13-2024 Care regimes management [facility] Start: 07-13-2024 Consultation for treatment [facility] Start: 07-13-2024 Insertion of catheter into peripheral vein [facility] Start: 07-13-2024 Measuring intake and output [facility] Start: 07-13-2024 Notification of physician [facility] Start: 07-13-2024 Providing care according to standard [facility] Start: 07-13-2024 Provision of activity privileges [facility] Start: 07-13-2024 Referral to zigzag tunnel elastic operator [facility] Start: 07-13-2024 Referral to occupational therapist [facility] Start: 07-13-2024 Referral to rail technician [facility] Start: 07-13-2024 Referral to service [facility] Start: 07-13-2024 End: 07-13-2024 [facility] Start: 07-13-2024 Admission procedure [facility] Start: 07-09-2024 End: 07-09-2024 Patient encounter procedure 07/09/2024 9:40 AM EST Office Visit [facility] [place] [address] [place] [address] Husam Yan MD [address] [place] [address] 6 month follow up [facility] [place] Comment on above: 6 month follow up Start: 07-07-2024 [facility] Start: 07-03-2024 [facility] Start: 07-02-2024 Patient discharge [facility] Start: 07-02-2024 End: 07-02-2024 [facility] Start: 07-02-2024 Hemodialysis care [facility] Start: 07-02-2024 Assessment of risk of venous thromboembolism [facility] Start: 07-02-2024 Catheterization of vein [facility] Start: 07-02-2024 Insertion of catheter into peripheral vein [facility] Start: 07-02-2024 Measuring intake and output [facility] Start: 07-02-2024 Providing care according to standard [facility] Start: 07-02-2024 Referral to zigzag tunnel elastic operator [facility] Start: 07-02-2024 Admission procedure [facility] Start: 06-28-2024 Hemoglobin A1c measurement HbA1C [facility] Start: 06-06-2024 Adjt tis trns/reargmt f/c/c/m/n/a/g/h/f 10sqcm/< [facility] Start: 06-06-2024 Amputation foot transmetarsal [facility] Start: 06-06-2024 Anes open proc bones lower leg/ankle/foot nos [facility] Start: 06-06-2024 Catheterization of vein [facility] Start: 06-06-2024 Neurovascular assessment [facility] Start: 06-06-2024 Patient discharge [facility] Start: 06-06-2024 Procedure discontinued [facility] Start: 06-06-2024 Vital signs measurements [facility] Start: 06-06-2024 [facility] Start: 05-25-2024 Hepatitis B surface antibody level LDL Cholesterol [facility] Start: 05-23-2024 Advance Directive Discussion Advance Directive Discussion [facility] Start: 05-23-2024 Medicare Advantage Annual Wellness Visit Medicare Advantage Annual Wellness Visit [facility] Start: 04-27-2024 Glaucoma screening Dilated Retinal Exam [facility] Start: 02-22-2024 3 comp foot exam completed Diabetic Foot Exam [facility] Start: 02-22-2024 Diabetic foot examination Diabetic Foot Exam [facility] Start: 02-10-2024 End: 02-10-2024 Patient encounter procedure 02/10/2024 11:30 AM EDT Office Visit Podiatry [address] [place], [place] [id number] Danilo Martines [address] [place], [place] [address] 3 month follow up nail care Podiatry Comment on above: 3 month follow up nail care Start: 01-22-2024 Covid-19 Vaccine () Covid-19 Vaccine () [facility] Start: 01-22-2024 Covid-19 Vaccine () Covid-19 Vaccine () [facility] Start: 01-22-2024 Influenza vaccination Influenza Vaccine (#1) [facility] Start: 01-06-2024 End: 04-06-2024 Comprehensive metabolic 2000 panel - Serum or Plasma COMPREHENSIVE METABOLIC PANEL Lab Routine 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 edema, with long-term current use of insulin (HCC) Expected: 01/06/2024, Expires: 04/06/2024 [facility] Work Phone: Comment on above: Expected: 01/06/2024, Expires: 4 Start: 01-06-2024 End: 04-06-2024 Hemoglobin A1c in Blood HEMOGLOBIN A1C Lab Routine 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 edema, with long-term current use of insulin (HCC) Expected: 01/06/2024, Expires: 04/06/2024 [facility] Comment on above: Expected: 01/06/2024, Expires: 4 Start: 11-04-2023 End: 11-04-2023 Patient encounter procedure Podiatry Comment on above: 3 month follow up nail care 4 month follow up Start: 08-24-2023 Hemoglobin A1c measurement HbA1C [facility] Start: 07-06-2023 Hepatitis B Vaccine (9 of 9 - Risk Dialysis Recombivax 3-dose series) Hepatitis B Vaccine (9 of 9 - Risk Dialysis Recombivax 3-dose series) [facility] Start: 06-24-2023 Covid-19 Vaccine (4 - Additional dose for Gage series) Covid-19 Vaccine (4 - Additional dose for Gage series) [facility] Start: 06-24-2023 Covid-19 Vaccine (2022- season) Covid-19 Vaccine ( season) [facility] Start: 06-07-2023 SHINGRIX VACCINE (1 of 2) SHINGRIX VACCINE (1 of 2) [facility] Comment on above: Postponed from 1956 (Declined at t his time) Postponed from 04/30 (Declined at this time) Start: 05-23-2023 Advance Directive Discussion Advance Directive Discussion [facility] Start: 05-23-2023 Behavioral Health Screening Behavioral Health Screening [facility] Start: 03-08-2023 Hemoglobin A1c/Hemoglobin.total in Blood HBA1C [facility] Start: 03-05-2023 Hepatitis B surface antibody level LDL CHOLESTEROL [facility] Start: 03-04-2023 Hepatitis B Vaccine (6 of 6 - Risk Dialysis Recombivax 3-dose series) Hepatitis B Vaccine (6 of 6 - Risk Dialysis Recombivax 3-dose series) [facility] Start: 02-08-2023 Hepatitis C antibody, confirmatory test DILATED RETINAL EXAM [facility] Start: 01-21-2023 Influenza vaccination INFLUENZA (#1) [facility] Start: 12-06-2022 Hemoglobin A1c/Hemoglobin.total in Blood HBA1C [facility] Start: 09-06-2022 End: 11-06-2022 Hemoglobin A1c in Blood HGB A1C Lab Routine 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, without long-term current use of insulin (HCC) Expected: 09/06/2022, Expires: 11/06/2022 [facility] Work Phone: Comment on above: Expected: 09/06/2022, Expires: Start: 09-05-2022 Hemoglobin A1c/Hemoglobin.total in Blood HBA1C [facility] Start: 09-02-2022 3 comp foot exam completed DIABETIC FOOT EXAM [facility] Start: 07-06-2022 COVID-19 VACCINE (4 - Additional dose for Gage series) COVID-19 VACCINE (4 - Additional dose for Gage series) [facility] Start: 06-07-2022 End: 08-07-2022 Comprehensive metabolic 2000 panel - Serum or Plasma [facility] Work Phone: Comment on above: Expected: 06/07/2022, Expires: 3 Start: 06-07-2022 End: 08-07-2022 Hemoglobin A1c in Blood [facility] Work Phone: Comment on above: Expected: 06/07/2022, Expires: 3 Start: 06-05-2022 Hemoglobin A1c/Hemoglobin.total in Blood HBA1C [facility] Start: 05-23-2022 ADVANCE DIRECTIVE DISCUSSION ADVANCE DIRECTIVE DISCUSSION [facility] Start: 02-25-2022 Hepatitis B surface antibody level LDL CHOLESTEROL [facility] Start: 01-21-2022 Influenza vaccination INFLUENZA (#1) [facility] Start: 12-05-2021 Hepatitis C antibody, confirmatory test DILATED RETINAL EXAM [facility] Start: 12-02-2021 Hemoglobin A1c/Hemoglobin.total in Blood HBA1C [facility] Start: 07-24-2021 COVID-19 VACCINE (3 - Booster for Gage series) COVID-19 VACCINE (3 - Booster for Gage series) [facility] Start: 05-23-2021 ADVANCE DIRECTIVE DISCUSSION ADVANCE DIRECTIVE DISCUSSION [facility] Start: 05-23-2021 DEPRESSION ASSESSMENT DEPRESSION ASSESSMENT [facility] Start: 05-21-2021 COVID-19 VACCINE (3 - Booster for Gage series) COVID-19 VACCINE (3 - Booster for Gage series) [facility] Start: 05-12-2017 End: 05-12-2017 Appointment Appointment [facility] Work Phone: Start: 10-27-2016 End: 10-27-2016 Appointment Appointment [facility] Work Phone: Start: 10-27-2016 End: 10-27-2016 Echocardiography Echocardiogram (complete) [facility] Work Phone: Start: 10-27-2016 End: 10-27-2016 Electrocardiogram, complete EKG (In office) [facility] Work Phone: Start: 10-27-2016 End: 10-27-2016 Follow Up Appt 6 months Follow Up Appt 6 months [facility] Work Phone: Start: 10-27-2016 End: 10-27-2016 MMM MMM [facility] Work Phone: Start: 10-27-2016 End: 10-27-2016 Nuclear stress test -Lexiscan Nuclear stress test -Lexiscan [facility] Work Phone: Start: 2012 RSV Vaccine (1 - 1-dose 75+ series) RSV Vaccine (1 - 1-dose 75+ series) [facility] Start: 1997 RSV Vaccine (1 - 1-dose 60+ series) RSV Vaccine (1 - 1-dose 60+ series) [facility] Start: 1987 SHINGRIX VACCINE (1 of 2) SHINGRIX VACCINE (1 of 2) [facility] Start: 1956 SHINGRIX VACCINE (1 of 2) SHINGRIX VACCINE (1 of 2) [facility] Start: 1955 Anxiety Screening Anxiety Screening [facility] Start: 1955 Depression Screening Depression Screening [facility] Patient Education [facility] Work Phone: Patient referral [facility] Work Phone: Referral for further care [facility] Immunizations Immunization Date Immunization Notes Care Provider Fa [facility] 04-01-2024 influenza virus vaccine, unspecified formulation William Chilel MD Work Phone: [facility] 03-15-2024 influenza, injectabl e, quadrivalent, preservative free Dr. Jean Yan MD Work Phone: [facility] 02-21-2023 COVID-19 vaccine, ag e 12+ yr, 2022- season (PFIZER-BIONTECH) Husam Yan MD Work Phone: [facility] 02-21-2023 influenza (HD-IIV4) vaccine, age 65+ yr, high dose, quadrivalent, PF (FLUZONE HIGH-DOSE) Husam Yan MD Work Phone: [facility] 02-21-2023 influenza virus vaccine, unspecified formulation JEAN PIERRE ARREAGA MD [facility] 02-21-2023 SARS-CoV-2 (COVID-19 ) [id number] JEAN PIERRE ARREAGA MD [facility] Comment on above: Result Comment: 2023: [id number] 03-05-2022 COVID-19 booster vaccine, age 12+ yr, bivalent (PFIZER-BIONTECH) Husam Yan MD Work Phone: [facility] 03-04-2022 Hepatitis B vaccine (recombinant), CpG adjuvanted Husam Yan MD Work Phone: [facility] Work Phone: 02-25-2022 influenza, high-dose , quadrivalent vaccine (FLUZONE HIGH DOSE QUADRIVALENT) Husam Yan MD Work Phone: [facility] Work Phone: 03-26-2021 SARS-CoV-2 (COVID-19 ) [id number] vaccine JEAN PIERRE ARREAGA MD [facility] 02-17-2021 influenza, high-dose , quadrivalent vaccine (FLUZONE HIGH DOSE QUADRIVALENT) Husam Yan MD Work Phone: [facility] 12-30-2020 Hepatitis B vaccine (recombinant), CpG adjuvanted Husam Yan MD Work Phone: [facility] 10-02-2020 Hepatitis B vaccine (recombinant), CpG adjuvanted Husam Yan MD Work Phone: [facility] 07-31-2020 COVID-19 vaccine (GAGE) Husam Yan MD Work Phone: [facility] Comment on above: Result Comment: 2023: [id number] 07-01-2020 hepatitis B vaccine, adult dosage Husam Yan MD Work Phone: [facility] 06-03-2020 hepatitis B vaccine, adult dosage Husam Yan MD Work Phone: [facility] 04-19-2020 influenza virus vaccine, unspecified formulation JEAN PIERRE ARREAGA MD [facility] 04-19-2020 influenza, injectabl e, quadrivalent, preservative free Dr. Jean Yan MD Work Phone: [facility] 04-19-2020 influenza, seasonal, injectable Dr. Jean Yan Work Phone: [facility] Work Phone: 04-19-2020 influenza, seasonal, injectable, preservative free Husam Yan MD Work Phone: [facility] Work Phone: 02-28-2019 influenza virus vaccine, unspecified formulation JEAN PIERRE ARREAGA MD [facility] 02-28-2019 influenza, high dose seasonal, preservative-free Husam Yan MD Work Phone: [facility] 06-12-2014 pneumococcal conjuga te vaccine, 13 valent Husam Yan MD Work Phone: [facility] 02-20-2011 influenza virus vaccine, unspecified formulation Husam Yan MD Work Phone: [facility] Work Phone: 02-14-2009 influenza virus vaccine, unspecified formulation Husam Yan MD Work Phone: [facility] Work Phone: 11-01-2007 diphtheria and tetan us toxoids, adsorbed for pediatric use Husam Yan MD Work Phone: [facility] Work Phone: 05-08-2007 influenza virus vaccine, unspecified formulation Husam Yan MD Work Phone: [facility] Work Phone: 03-28-2006 influenza virus vaccine, unspecified formulation Husam Yan MD Work Phone: [facility] 03-04-2006 pneumococcal polysaccharide vaccine, 23 valent Husam Yan MD Work Phone: [facility] Work Phone: Payers Date Payer Category Payer Medicaid [id number] 10-28-2023 Self-pay [id number] 01-21-2021 Medicare HUMANA MEDICARE HUMANA MEDICARE PPO [id number] 01/21/2021-Present [phone] [place] [address] [id number] 05-23-2017 Medicare [id number]. [id number] 05-23-2017 Medicare (Managed Care) [facility] [id number] 05-23-2012 Medicare [id number] 1935 Unknown [id number] 2.16.840.1.390235.3.579.2. 627 Unknown SELF PAY INSURANCE [id number] Unknown [id number] 2.16.840.1.181739.3.579.2. 462 Unknown [id number] 2.16840.1.761534.3.579.2. 462 Unknown [id number] 2.16840.1.478733.3.579.2. 462 Unknown [id number] 2.16840.1.512181.3.579.2. 462 Unknown [id number] 2.16.840.1.457594.3.579.2. 462 Unknown [id number] 2.840.1.307363.3.579.2. 462 Unknown [id number] 2.16840.1.900544.3.579.2. 462 Unknown [id number] 2.16.840.1.105579.3.579.2. 462 Unknown [id number] 2.16840.1.999298.3.579.2. 462 Unknown [id number] 2.16840.1.367617.3.579.2. 462 Unknown [id number] 2.16840.1.177099.3.579.2. 462 Unknown [id number] 2.16840.1.274292.3.579.2. 462 Unknown [id number] 2.16.840.1.682691.3.579.2. 462 Unknown [id number] 2.16.840.1.437493.3.579.2. 462 Unknown [id number] 2.16.840.1.197414.3.579.2. 462 Unknown [id number] 2.16840.1.139504.3.579.2. 462 Unknown [id number] 2.16.840.1.170074.3.579.2. 462 Unknown [id number] 2.16840.1.064670.3.579.2. 462 Unknown [id number] 2.16840.1.794070.3.579.2. 462 Unknown [id number] 2.840.1.319791.3.579.2. 462 Unknown [id number] 2.840.1.719135.3.579.2. 462 Unknown [id number] 2.840.1.060906.3.579.2. 462 Unknown [id number] 2.840.1.387536.3.579.2. 462 Unknown [id number] 2.840.1.333500.3.579.2. 462 Unknown [id number] 2.840.1.116526.3.579.2. 462 Unknown [id number] 2.840.1.973804.3.579.2. 462 Unknown [id number] 2.840.1.913263.3.579.2. 462 Unknown [id number] 2.840.1.196081.3.579.2. 462 Unknown [id number] 2.840.1.078999.3.579.2. 462 Unknown [id number] 2.840.1.399720.3.579.2. 462 Unknown [id number] 2.840.1.794681.3.579.2. 462 Unknown [id number] 2.840.1.652461.3.579.2. 462 Unknown [id number] 2.840.1.661115.3.579.2. 462 Unknown [id number] 2.840.1.032004.3.579.2. 462 Unknown [id number] 2.16.840.1.071148.3.579.2. 462 Unknown [id number] 2.16.840.1.468087.3.579.2. 462 Unknown [id number] 2.16.840.1.796190.3.579.2. 462 Unknown [id number] 2.16.840.1.973032.3.579.2. 462 Unknown [id number] 2.16.840.1.020159.3.579.2. 462 Unknown [id number] 2.16.840.1.928826.3.579.2. 462 Unknown [id number] 2.840.1.448783.3.579.2. 462 Unknown [id number] 2.840.1.362392.3.579.2. 462 Unknown [id number] 2..840.1.152188.3.579.2. 462 Unknown [id number] 2.840.1.542133.3.579.2. 462 Unknown [id number] 2.840.1.794238.3.579.2. 462 Unknown [id number] 2.16.840.1.875604.3.579.2. 462 Unknown [id number] 2.16840.1.089719.3.579.2. 462 Unknown [id number] 2.840.1.093424.3.579.2. 462 Unknown [id number] 2.16.840.1.127191.3.579.2. 462 Unknown [id number] 2.16.840.1.736333.3.579.2. 462 Unknown [id number] 2.16.840.1.533445.3.579.2. 462 Unknown [id number] 2.16.840.1.765459.3.579.2. 462 Unknown [id number] 2.16840.1.116343.3.579.2. 462 Unknown [id number] 2.16.840.1.491939.3.579.2. 462 Unknown [id number] 2.16.840.1.402849.3.579.2. 462 Unknown [id number] 2.16.840.1.148975.3.579.2. 462 Unknown [id number] 2.16.840.1.932880.3.579.2. 462 Unknown [id number] 2.16.840.1.686016.3.579.2. 462 Unknown [id number] 2..840.1.227742.3.579.2. 462 Unknown [id number] 2..840.1.875424.3.579.2. 462 Unknown [id number] 2.840.1.815737.3.579.2. 462 Unknown [id number] 2.840.1.998150.3.579.2. 462 Unknown [id number] 2.840.1.785218.3.579.2. 462 Unknown [id number] 2.840.1.154672.3.579.2. 462 Unknown [id number] 2.840.1.700979.3.579.2. 462 Unknown [id number] 2.840.1.304220.3.579.2. 462 Unknown [id number] 2.16.840.1.963999.3.579.2. 462 Unknown [id number] 2.16840.1.892407.3.579.2. 462 Unknown [id number] 2.16.840.1.979119.3.579.2. 462 Unknown [id number] 2.16840.1.580963.3.579.2. 462 Unknown [id number] 2.16.840.1.553165.3.579.2. 462 Unknown [id number] 2.16.840.1.165336.3.579.2. 462 Unknown [id number] 2.16.840.1.322022.3.579.2. 462 Unknown [id number] 2.16.840.1.648880.3.579.2. 462 Unknown [id number] 2.16.840.1.001384.3.579.2. 462 Unknown [id number] 2.16.840.1.416458.3.579.2. 462 Unknown [id number] 2.16.840.1.606286.3.579.2. 462 Unknown [id number] 2.16.840.1.771693.3.579.2. 462 Unknown [id number] 2.16.840.1.488718.3.579.2. 462 Unknown [id number] 2.16.840.1.983223.3.579.2. 462 Unknown [id number] 2.16.840.1.038181.3.579.2. 462 Unknown [id number] 2.16.840.1.369044.3.579.2. 462 Unknown [id number] 2.16.840.1.406856.3.579.2. 462 Unknown [id number] 2.16.840.1.421205.3.579.2. 462 Unknown [id number] 2.16.840.1.861560.3.579.2. 462 Unknown [id number] 2.16.840.1.047507.3.579.2. 462 Unknown [id number] 2.16.840.1.657018.3.579.2. 462 Unknown [id number] 2.16.840.1.672970.3.579.2. 462 Unknown [id number] 2.16.840.1.099495.3.579.2. 462 Unknown [id number] 2.16.840.1.916791.3.579.2. 462 Unknown [id number] 2.16.840.1.013195.3.579.2. 462 Unknown [id number] 2.16.840.1.094234.3.579.2. 462 Unknown [id number] 2.16.840.1.665372.3.579.2. 462 Unknown [id number] 2.16.840.1.650549.3.579.2. 462 Unknown [id number] 2.16.840.1.651161.3.579.2. 462 Unknown [id number] 2.16.840.1.035845.3.579.2. 462 Unknown [id number] 2.840.1.918649.3.579.2. 462 Unknown [id number] 2.840.1.360113.3.579.2. 462 Unknown [id number] 2.840.1.143998.3.579.2. 462 Unknown [id number] 2.840.1.886206.3.579.2. 462 Unknown [id number] 2.840.1.420399.3.579.2. 462 Unknown [id number] 2.840.1.495283.3.579.2. 462 Unknown [id number] 2.840.1.376286.3.579.2. 462 Unknown [id number] 2.16840.1.033045.3.579.2. 462 Unknown [id number] 2.16840.1.287113.3.579.2. 462 Unknown [id number] 2.16840.1.799964.3.579.2. 462 Unknown [id number] 2.16840.1.620635.3.579.2. 462 Unknown [id number] 2.16840.1.444401.3.579.2. 462 Unknown [id number] 2.16.840.1.175387.3.579.2. 462 Unknown [id number] 2.16.840.1.492194.3.579.2. 462 Unknown [id number] 2.16.840.1.941346.3.579.2. 462 Unknown [id number] 2.16.840.1.398228.3.579.2. 462 Unknown [id number] 2.16.840.1.651181.3.579.2. 462 Unknown [id number] 2.16.840.1.062936.3.579.2. 462 Unknown [id number] 2.16.840.1.181210.3.579.2. 462 Unknown [id number] 2.16840.1.529075.3.579.2. 462 Unknown [id number] 2.16840.1.980731.3.579.2. 462 Unknown [id number] 2.16.840.1.868426.3.579.2. 462 Unknown [id number] 2.16840.1.208368.3.579.2. 462 Unknown 77943257 2.16.840.1.914120.3.579.2. 462 Unknown 10569035 2.16.840.1.337801.3.579.2. 462 Unknown [id number] 2.16840.1.038946.3.579.2. 462 Unknown [id number] 2.16.840.1.567335.3.579.2. 462 Unknown [id number] 2.16.840.1.145127.3.579.2. 462 Unknown [id number] 2.16.840.1.173753.3.579.2. 462 Unknown [id number] 2.16.840.1.898783.3.579.2. 462 Unknown [id number] 2.16840.1.150318.3.579.2. 462 Unknown [id number] 2.16.840.1.611558.3.579.2. 462 Unknown [id number] 2.16.840.1.863923.3.579.2. 462 Social History Date Type Detail Facility Start: 07-25-2017 End: 03-05-2022 Tobacco smoking status NHIS Ex-smoker [facility] History of tobacco use Cigar Smoker [facility] Start: 07-25-2017 End: 03-05-2022 Tobacco use and exposure Smokeless tobacco non-user [facility] Start: 07-15-2021 End: 11-26-2024 Alcohol intake Current drinker of alcohol (finding) [facility] Start: 07-15-2021 End: 12-06-2022 Alcohol intake [facility] Work Phone: Start: 11-18-2016 History SDOH Alcohol Comment rarely [facility] Start: 04-28-2017 Tobacco Comment Occasionally [facility] Start: 1935 Sex Assigned At Not on file C [facility] Start: 02-02-2021 End: 03-05-2022 Exposure to SARS-CoV-2 (event) Not sure [facility] Start: 11-06-2021 Tobacco smoking stat us NHIS Unknown if ever smoked [facility] Work Phone: Start: 04-18-2020 None [facility] Start: 08-28-2020 Spouse/ Signif icant Other [facility] Start: 09-26-2020 Non-smoker [facility] Start: 1935 Sex Assigned At Male A [facility] History of tobacco use Current smoker [facility] Start: 12-06-2022 End: 11-26-2024 Tobacco use panel [facility] Work Phone: Adult Depression Screening Assessment 0 [facility] Work Phone: Start: 08-28-2024 End: 01-25-2025 Tobacco smoking status NHIS Never smoked tobacco (finding) [facility] Has the electric, Agari, oil, or water company threatened to shut off services in your home in past 12Mo No [facility] Work Phone: (I/We) worried marques er (my/our) food would run out before (I/we) got money to buy more. Never true [facility] Medical Equipment Procedure Code Equipment Code [...] above or below knee FDA Start: 08-29-2024 [id number], [id number], [id number], [id number], [id number], [id number], [id number], [id number] Start: 09-06-2011 End: 10-27-2022 Comment on above: Test blood sugar(s) 2x daily. Dx E11.65. Insulin: No. Test blood sugar(s) 2x daily. Dx: E11.65. Insulin: No Use one needle for e ach dose. 1x/day. 1 Each once daily. Test blood sugar(s) 2 times daily. Dx: Type 2 DM -E11.65 Insulin: No [id number], [id number], [id number] , [id number] FDA Start: 04-28-2017 Comment on above: True Metrix Lancets. Test blood sugar(s) 2x daily. Dx: E11.65. Insulin: No True Metrix Test Str ips. Test blood sugar(s) 2x daily. Dx: E11.65. Insulin: No Goals Date Patient Goal Desired Activity /State Functional Status Date Assessment Result Facility 11-28-2024 Are you deaf, or do you have serious difficulty hearing No 11/28/2024 11:21 AM Danilo Rankin, ISABEL No [facility] 11-28-2024 Are you blind, or do you have serious difficulty seeing, even when wearing glasses No 11/28/2024 11:21 AM Danilo Rankin RN No [facility] 11-28-2024 Do you have serious difficulty walking or climbing stairs Yes 11/28/2024 11:21 AM Danilo Rankin RN Yes [facility] 11-28-2024 Do you have difficul ty dressing or bathing No 11/28/2024 11:21 AM Danilo Rankin RN No [facility] 11-28-2024 Because of a physica l, mental, or emotional condition, do you have difficulty doing errands alone such as visiting a physician's office or shopping Yes 11/28/2024 11:21 AM Danilo Rankin RN Yes [facility] 09-04-2024 Functional status Bedrest [facility] Work Phone: 09-03-2024 Functional status [facility] Work [facility]: 07-20-2024 Functional status Bedrest [facility] Work Phone: 07-02-2024 Functional status Independent [facility] Work Phone: 09-08-2023 Functional Status Other: [facility] 09-08-2023 Functional Status Maintained [facility] 09-07-2023 Functional Status [facility] 09-26-2014 Are you deaf, or do you have serious difficulty hearing No 09/26/2014 8:15 AM Pooja Goins, ISABEL No [facility] 09-26-2014 Are you blind, or do you have serious difficulty seeing, even when wearing glasses No 09/26/2014 8:15 AM Pooja Goins RN No [facility] 09-26-2014 Do you have serious difficulty walking or climbing stairs No 09/26/2014 8:15 AM Pooja Goins RN No [facility] 09-26-2014 Do you have difficul ty dressing or bathing No 09/26/2014 8:15 AM Pooja Goins, RN No [facility] 09-26-2014 Because of a physica l, mental, or emotional condition, do you have difficulty doing errands alone such as visiting a physician's office or shopping No 09/26/2014 8:15 AM EDT Pooja Rai RN No [facility] Mental Status Date Assessment Result Facility 11-28-2024 Because of a physica l, mental, or emotional condition, do you have serious difficulty concentrating, remembering, or making decisions Yes 11/28/2024 11:21 AM EDT Danilo Nesbitt, ISABEL Yes [facility] 11-22-2024 Cognitive function Voice/Name [facility] Work Phone: 09-04-2024 Cognitive function Voice/Name [facility] Work Phone: 07-20-2024 Cognitive function Voice/Name [facility] Work Phone: 07-07-2024 Cognitive function Voice/Name [facility] Work Phone: 07-03-2024 Cognitive function Follows Commands;Drows y [facility] Work Phone: 07-02-2024 Cognitive function Appropriate;Cooperativ e [facility] Work Phone: 06-06-2024 Cognitive function Drowsy [facility] Work Phone: 06-06-2024 Cognitive function Voice/Name [facility] Work Phone: 09-08-2023 Mental Status [facility] 09-26-2014 Because of a physica l, mental, or emotional condition, do you have serious difficulty concentrating, remembering, or making decisions No 09/26/2014 8:15 AM EDT Pooja Rai, ISABEL No [facility] Clinical Notes 12-19-2015 to 01-25-2025 Telephone Encounter - Ray Eagle TECHNOLOGIST - 12/11/2024 10:18 AM EDTTelephone Encounter - Ray Eagle TECHNOLOGIST - 12/11/2024 10:18 AM EDT Note Date & Type Note Facility 01-25-2025 Radiology Diagnostic study note [facility] 01-25-2025 Radiology Diagnostic study note [facility] 01-25-2025 Radiology Diagnostic study note [facility] 12-26-2024 Procedure note [facility] 12-11-2024 Telephone encount er Note Post Implant [...] Location Dept Phone 01/08/2025 10:30 AM DEVICE CLINIC [facility] [phone] Any scheduling issues:Yes, Spoke with patients daughter she stated if her dad could follow up locally she would call and cancel appointment with [facility]. Questions moving forward: No FATUMA WorrellOLOGIST [facility] 12-11-2024 Miscellaneous Notes Formattin g of this [...] Location Dept Phone 01/08/2025 10:30 AM DEVICE CLINIC [facility] [phone] Any scheduling issues:Yes, Spoke with patients daughter she stated if her dad could follow up locally she would call and cancel appointment with [facility]. Questions moving forward: No Ray Eagle TECHNOLOGIST documented in this encounter [facility] 11-27-2024 Note [facility] 11-26-2024 Note [facility] 11-26-2024 Note [facility] 11-26-2024 Note [facility] 11-25-2024 Note [facility] 11-25-2024 Note [facility] 11-24-2024 Note [facility] 11-24-2024 Note [facility] 11-24-2024 Note [facility] 11-23-2024 Note [facility] 11-23-2024 Note [facility] 11-23-2024 Note [facility] 11-22-2024 Radiology Diagnostic study note [facility] 11-09-2024 Discharge summary Note Date/Time November 08, 2024 11:39pm [facility] Medical Records Department [address] [place] [address] Emergency Department Summary 11/08/24 MR#: [id number] Acct: [id number] Name: PERLA THOMPSON Rep #:[id number] : 1935 89 From: Max Ayers PCP: Dr. Nando Wiggins MD Status:R EG ER Location: ED HPI <KRISTOFER Taylor - Last Filed: 11/08/24 22:12> HPI - Fall History of Present Illness Chief Complaint: Fall Narrative Narrative: 89-year-old male with PMH of DM2, ESRD on HD, A-fib on Eliquis, right BKA presents after a fall at his longterm. 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 Wound, open, foot End stage renal disease MRSA (methicillin resistant staph aureus) culture positive Cutaneous abscess of right foot Diabetic infection of right foot Acute hyperkalemia Open wound Lives in longterm Dietary restriction History of stress test History of echocardiogram Cardiology follow-up encounter History of atrial fibrillation Insulin dependent diabetes mellitus Other specified peripheral vascular diseases 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 ESRD (end [...] repair History of appendectomy Social History housing: longterm current occupational status: retired Smoking Status: Never [...] 98 94 Oxygen Delivery Method Room Air [facility] <KRISTOFER Taylor - Last Filed: 11/08/24 22:12> [facility] Narrative Medical decision making narrative: History gathered [...] IMPRESSION: No acute intracranial abnormalities. Reading Location: [id number] Foot X-Ray 11/08/24 21:20 IMPRESSION: No acute fracture is appreciated. Other abnormalities as detailed above. Reading Location: [facility] ED attending interpretation of left foot shows no acute fracture or dislocation. <Dr. Max Roberts, DO - Last Filed: 11/08/24 23:39> [facility] Radiography Diagnostic Testing: Clinical Impression(s) from Imaging Studies Brain CT 11/08/24 19:51 IMPRESSION: No acute intracranial abnormalities. Reading Location: [id number] Foot X-Ray 11/08/24 21:20 IMPRESSION: No acute fracture is appreciated. Other abnormalities as detailed above. Reading Location: [facility] Treatment and Re-Evaluation Narrative: Attending note: I have personally performed a face to face assessment of the patient and have reviewed the ARAMIS note. I personally made/approved the management plan and take responsibility for the patient management. I performeda substantive portion of the visit including all aspects of the following. My figueroa findings include: Sent from alf facility fall out of his recliner. Normally [...] Chief Complaint: Fall ED Midlevel Provider: Xena Zimemr ED Provider: Max Roberts Dx/Rx/DC Orders Clinical [...] 100 unit/mL Insulin Pen See Protocol subcut [facility] Protocol: 3. Sliding Scale Insulin Med [...] please return to the ER. Print Language: South African Disposition Disposition: Home, Self Care What to do if you have Problems For any increased pain, shortness of breath, bleeding, nausea or vomiting, chestpain, or any unexpected problems, contact your Primary Care Provider. Call [facility] ([phone]) or report to the closest Emergency Room. Call 911 if necessary. 11/08/24 8274 <Electronically signed by Max Ayers> Cosigner Signature (if applicable): 11/08/242211 <Electronically signed by Xena MINER> CC: Dr. Nando Wiggins MD ~ [facility] Work Phone: 1(146) 454-808006-19-2025 Radiology Diagnostic study [facility]06-19-2025 Radiology Diagnostic study 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 December 9:34am Paroxysmal atrial fibrillation chronic December 26, 2024 9:34am Presence of leadless cardiac pacemaker chronic December 26 9:34am Sinus bradycardia chronic December 26, 2024 9:34am Closed hip fracture acute 2024 5:56pm Closed right hip fracture acute January 25, 2025 5:56pm Current use of long term care social worker anticoagulation acute January 25 5:56pm End stage renal disease acute S 2024 5:56pm Fall acute January 25, 2025 5:56pm [facility] Work Phone: 1(255) 328-929605-05-2025 Progress note Author Randal Damico [facility] Note Date/Time September 24, 2024 11:03a [facility] Medical Records Department [address] [place] [address] Progress Note - Surgery 09/24/24 1101 MR#: [id number] Acct: [id number] Name: PERLA THOMPSON Rep #:[id number] : 1935 89 From: Randal Damico MD [...] 121/40 H 09/24/24 10:09 09/24/24 10:09 09/24/24 10:09/24/24 10:09 Weight: 204 lb Body Mass Index [...] encounter PLAN: Continue ABD for padding Continue Chief Wheelage Clerk splint for knee extension and plan for stump forming with [place] eventual prosthesis at likely 3 months Plan from vascular is to follow-up in 2 weeks for staple removal. Agree with plan. Patient is not having any residual limb pain or phantom limb pain. Follow-up asneeded. 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02-19-2025 [facility] History of Present illness Narrative* Husam [...] said that the patient is in a longterm and that is why he hasn't come in- he had an amputation of his foot. msg sent to pcp to make him aware that he is in a longterm Reason for Outreach Care Gap/HCC or Scheduling [...] 11, 2024 2:35 PM documented in this encounterCh[facility]02-19-2025 NoteTri[facility]02-17-2025 Telephone encounter Note* Telephone Encounter - [...] RAY Roach July 09, 2024 11:51 AM [facility]02-17-2025 Miscellaneous Notes* Telephone Encounter - Radha [...] 09, 2024 11:51 AM documented in this encounterChillicothe Hospital02-10-[facility]25 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 inactive August 29, 2024 1:06pm Wound, open, foot inactive August 292024 1:06pm Amputation of right lower extremity below knee acute September 24 9:58am [facility] Work Phone: 1(370) 682-220901-15-2025 Evaluation note* Diagnosis Onset Date Resolution Status [...] 2024 8:25am End stage renal disease acute 2024 12:56pm Acute hyperkalemia inactive 2024 12:56pm Other acute osteomyelitis, right ankle and foot acute July 112024 10:30am Other specified peripheral vascular diseases inactive July 11, 2024 10:30am End stage renal disease acute 2024 5:48pm MRSA bacteremia acute July 13, [...] chronic August 29, 2024 1:06pm 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 If they do we can open a new TE. [facility]01-14-[facility] Miscellaneous Notes* Telephone Encounter - Catalina Ruth [...] to clear him. If he is inthe longterm with Dr. Wiggins, they should have access [...] that Cardiology Dr. Yunior Tong from the [facility] has signed off on medical [...] If he is a resident at the longterm, it would be most convenient for the patient to have Dr. Wiggins do his pre op there. If they are unable or unwilling, he would need OV with us before I could clear him. * Telephone Encounter - Alanna Veloz LPN - 05/30/2024 10:55 AM EST Phoned patients son, Jey back to advise if patient is at [facility] and on a skilled unit under Dr Wiggins's care we recommend she fill the clearance form out. Jey explained that Dr Wiggins rounds on Tuesday mornings when patient is at the wound clinic for his weekly debridments. Explained to son that wetypically need to obtain labs and EKG and patient would need to be seen in office. 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 Please advise. Alanna Veloz LPN * Telephone Encounter - Catalina Ruth RN - 05/30/2024 10:35 AM EST Jey Pts son in law called in and reports Pt is now in a alf facility. He states Dr [facility] took his big toe and the ball of his foot in April at the ER. He states they want to remove the rest of the toes as soon as they can, but they don't want to have to do it in the ER. He states that sports medicine coordinator for this provider is going to be sending over a surgical release for for the providers office to sign. Pt was last seen by Lauren Podlogar TRE on 03/28/24, he had an A1C and CMP done. I don't know if Pt would been to come in and be seen again before forms could be signed. Forms are going to be sent to office Attn: Alanna and Deborah. Please call and advise if anything else will need to be done. documented in this encounterChillicothe Hospital01-09-2025 Telephone encounter Note * Telephone Encounter [...] triage nurse the ok/information. Alanna Veloz LPN [facility]01-09-2025 Telephone encounter Note* Telephone Encounter - Husam Yan MD - 05/31/2024 12:42 PM EST He will still need physical exam and possibly labs before I would be able to clear him. If he is inthe longterm with Dr. Wiggins, they should have access to his labs and might be easier for them to see and clear him. If unable or unwilling, I would need to see him in our office. [facility]01-09-2025 Telephone encounter Note* Telephone Encounter - Mary Hodges LPN - 05/31/2024 11:41 AM EST Son dropped off copies of POA and Living Will forms at this time. Mary Hodges LPN [facility]01-08-2025 Telephone encounter Note* Telephone Encounter - Deborah Bedoya LPN - 05/30/2024 4:52 PM EST Son in law calling in to advise office that Cardiology Dr. Yunior Tong from the [facility] has signed off on medical [...] review. Jey requesting call back tomorrow from [facility] after PCP reviews paperwork. Deborah Bedoya LPN [facility]01-08-2025 Telephone encounter Note* Telephone Encounter - Deborah Bedoya LPN - 05/30/2024 1:51 PM EST Telephone call placed to patients son in law Jey. Made aware patient would need to be seen in office or could utilize nursing homes Dr. Mauricio understanding. Deborah Bedoya LPN [facility]01-08-2025 Telephone encounter Note* Telephone Encounter - Husam Yan MD - 05/30/2024 11:13 AM EST If he is a resident at the longterm, it would be most convenient for the patient to have Dr. Wiggins do his pre op there. If they are unable or unwilling, he would need OV with us before I could clear him. [facility]01-08-2025 Telephone encounter Note* Telephone Encounter - Alanna Veloz LPN - 05/30/2024 10:55 AM EST Phoned patients son, Jey back to advise if patient is at [facility] and on a skilled unit under Dr Wiggins's care we recommend she fill the clearance form out. Jey explained that Dr Wiggins rounds on Tuesdays when patient is at the wound clinic for his weekly debridments. Explained to son that wetypically need to obtain labs and EKG and patient would need to be seen in office. 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 Please advise. Alanna Veloz LPN [facility]01-08-2025 Telephone encounter Note* Telephone Encounter - Catalina Ruth RN - 05/30/2024 10:35 AM EST Jey Pts son in law called in and reports Pt is now in a alf facility. He states Dr [facility]uel[facility] took his big toe and the ball of his foot in April at the ER. He states they want to remove the rest of the toes as soon as they can, but they don't want to have to do it in the ER. He states that sports medicine coordinator for this provider is going to be sending over a surgical release for for the providers office to sign. Pt was last seen by Lauren Podlogerick PRODUCT LEAD on 03/28/24, he had an A1C and CMP done. I don't know if Pt would been to come in and be seen again before forms could be signed. Forms are going to be sent to office Attn: Marilia. Please call and advise if anything else will need to be done. [facility]12-13-[facility]12-03-[address]12-02-2024 Note [facility]12-02-2024 History of Present illness Narrative* Sridevi [...] 23, 2024 2:35 PM documented in this encounterChillicothe Hospital11-26-2024 Telephone encounter Note * Telephone Encounter - Mayela Hopson LPN - 04/17/2024 12:51 PM EST noted. [facility]11-26-2024 Miscellaneous Notes* Telephone Encounter - Mayela Hopson LPN - 04/17/2024 12:51 PM EST noted. * Telephone Encounter - Lauren Arzola APRN.CNP - 04/16/2024 9:19 AM EST Okay. Possible why his sugars have bee elevated as well. Lauren Arzola APRN.CNP * Telephone Encounter - Mayela Hopson LPN - 04/16/2024 9:08 AM EST Phoned Radha and went over notes below. She said her father is in [facility] with a fott infection right now. She will update you when she can. * Telephone Encounter - Lauren Arzola APRN.CNP - 04/16/2024 7:08 AM EST Update me Tuesday with readings. Lauren Arzola APRN.LUZ * Telephone Encounter - Mayela Hopson LPN - 04/13/2024 2:47 PM EST Phoned daughter Radha and went over notes from Lauren Arzola PRODUCT LEAD with understanding. Rahda said father would not like to see [...] - 04/13/2024 2:31 PM EST Patient daughter Radha calling fathers blood sugar average is 306. She said he is not very active, his activity is going to dialysis 3 times a week. His Lantus is 33 units daily. Please advise documented in this encounterChillicothe Hospital11-25-2024 Telephone encounter Note * Telephone Encounter - Lauren Arzola APRN.CNP - 04/16/2024 9:19 AM EST Okay. Possible why his sugars have bee elevated as well. Lauren Arzola APRN.CNP [facility]11-25-2024 Telephone encounter Note* Telephone Encounter - Mayela Hopson LPN - 04/16/2024 9:08 AM EST Phoned Radha and went over notes below. She said her father is in [facility] with a fott infection right now. She will update you when she can. [facility]11-25-2024 Telephone encounter Note* Telephone Encounter - Lauren Arzola APRN.CNP - 04/16/2024 7:08 AM EST Update me Tuesday with readings. Lauren Arzola APRN.CNP [facility]11-23-2024 [facility]11-23-2024 History of Present illness Narrative* Usman [...] distress and family will self transport to [facility] documented in this encounterChillicothe Hospital11-22-2024 Telephone encounter Note * Telephone Encounter - Mayela Hopson LPN - 04/13/2024 2:47 PM EST Phoned daughter Radha and went over notes from Lauren Arzola PRODUCT LEAD with understanding. Radha said father would not like to see pharmacist, she will try the increase in Lantus. [facility]-22-[facility]24 Telephone encounter Note* Telephone Encounter - Lauren Arzola APRN.CNP - 04/13/2024 2:36 PM EST Increase Lantus to 37 units daily. Would he be willing to talk with our clinical pharmacist to helpwith managing his diabetic medications as it doesn't seem we are getting much better. Lauren Arzola APRN.LUZ [facility]11-22-2024 Telephone encounter Note* Telephone Encounter - Mayela Hopson LPN - 04/13/2024 2:31 PM EST Patient daughter Radha calling fathers blood sugar average is 306. She said he is not very active, his activity is going to dialysis 3 times a week. His Lantus is 33 units daily. Please advise [facility]11-15-[facility] Telephone encounter Note* Telephone Encounter - Deborah Bedoya LPN - 04/06/2024 8:18 AM EST Patients daughter Radha telephoned, she is medical POA and will be bringing in paperwork. Providers recommendations below given. Voices understanding. Deborah Bedoya LPN [facility]11-15-2024 Miscellaneous Notes* Telephone Encounter - Deborah Bedoya LPN - 04/06/2024 8:18 AM EST Patients daughter Radha telephoned, she is medical POA and will [...] - 04/05/2024 11:15 AM EST Patient daughter Radha calling to give PRODUCT LEAD her father blood sugar average since increased Lantus insulin to 29 units. She is not sure what date he increased his dose of Lantus, and if he is taking it daily. She said he is getting more forgetful. He usually takes his Lantus dose late afternoon. His freestyle Toribio reader gives an average blood sugar at 327. She said it does not give her dates with separate readings. documented in this encounterChillicothe Hospital11-15-2024 Telephone encounter Note * Telephone Encounter [...] sooner if getting lows. Lauren Arzola APRN.LUZ [facility]11-14-2024 Telephone encounter Note* Telephone Encounter - Mayela Hopson LPN - 04/05/2024 11:15 AM EST Patient daughter Radha calling to give PRODUCT LEAD her father blood sugar average since increased Lantus insulin to 29 units. She is not sure what date he increased his dose of Lantus, and if he is taking it daily. She said he is getting more forgetful. He usually takes his Lantus dose late afternoon. His freestyle Toribio reader gives an average blood sugar at 327. She said it does not give her dates with separate readings. [facility]11-06-[facility] Instructions* Patient Instructions* Lauren Arzola APRN.CNP - 03/28/2024 1:09 PM EST Check blood sugars three times a day and as needed- update me in one week with readings, sooner if needed documented in this encounterChillicothe Hospital11-06-2024 NoteTri[facility]11-06-2024 History of Present illness Narrative* Podlogar, LaurenELICIA.NURSING STAFFING COORDINATOR - 03/28/2024 12:55 PM EST 03/28/2024 Patient [...] changes, polyuria or polydipsia. Daughter concerned about zigzag tunnel elastic operator giving him a diuretic She reports he [...] Medications Medication Sig flash glucose sensor (FREESTYLE TORIBIO 2 SENSOR) kit 2 Each four times daily. insulin glargine (LANTUS SOLOSTAR U-100 INSULIN) 100 unit/mL (3 mL) Inject 25 Units subcutaneously once daily. flash glucose scanning reader (TapestrySTYLE TORIBIO 14 DAY READER) 1 Units four times daily. blood sugar diagnostic (BLOOD GLUCOSE TEST) test strip Test blood sugar(s) 2 times daily. Dx: Type 2 DM -E11.65 Insulin: No blood sugar diagnostic (ACCU-CHEK LISA PLUS TEST STRP) test strip Test blood sugar(s) 2x daily. DxE11.65. Insulin: No. mecobalamin (B12 ACTIVE ORAL) Take 1 tablet by mouth once daily. Every other day Insulin [place], Disposable, (BD ULTRA-FINE SHAHEEN PEN NEEDLE) 32 [...] long-term current use of insulin ([facility]) - ICD9: 250.50, 362.05, 362.07, ICD10: E11.3313 - uncontrolled - increase Lantus to 29 units - update me next week with blood sugar readings, sooner if develops lows - eat low carbohydrate diet - obtain labs today - LANTUS SOLOSTAR U-100 INSULIN 100 UNIT/ML (3 ML) SUBCUTANEOUS PEN 2. ESRD (end stage renal disease) on dialysis ([facility]) - ICD9: 585.6, V45.11, ICD10: N18.6, Z99.2 (primary diagnosis) - discussed with daughter they need to discuss concerns with zigzag tunnel elastic operator, verbalizes understanding Lauren Arzola APRN.LUZ Prescription instructions [...] Level: 4 - Moderate documented in this encounterChillicothe Hospital08-16-2024 History of Present illness Narrative* Lauren Arzola [...] week. Follows with Dr. Faria Follows with [facility] cardiology for hx of Mobitz Type I [...] renal disease) on dialysis (HCC) Comment: , Th, Sat No date: Glaucoma Comment: Dr [...] subcutaneously once daily. flash glucose sensor (FREESTYLE TORIBIO 2 SENSOR) kit 2 Each four times daily. semaglutide (OZEMPIC) 0.25 mg or 0.5 mg(2 mg/1.5 mL) pen Inject 0.5 mg subcutaneously one time a week. semaglutide (OZEMPIC) 0.25 mg or 0.5 mg(2 mg/1.5 mL) pen Inject 0.5 mg subcutaneously one time a week. flash glucose scanning reader (FREESTYLE TORIBIO 14 DAY READER) 1 Units four times daily. blood sugar diagnostic (BLOOD GLUCOSE TEST) test strip Test blood sugar(s) 2 times daily. Dx: Type 2 DM -E11.65 Insulin: No blood sugar diagnostic (ACCU-CHEK LISA PLUS TEST STRP) test strip Test blood sugar(s) 2x daily. DxE11.65. Insulin: No. mecobalamin (B12 ACTIVE ORAL) Take 1 tablet by mouth once daily. Every other day Insulin [place], Disposable, (BD ULTRA-FINE SHAHEEN PEN NEEDLE) 32 [...] Ozempic due to GI side effects - FREESTYLE TORIBIO 2 SENSOR KIT - COMPREHENSIVE METABOLIC PANEL [...] sooner should any other issues arise. Lauren Podlogerick, KITCHEN HAND.NURSING STAFFING COORDINATOR Prescription instructions reviewed with patient as applicable. [...] Level: 4 - Moderate documented in this encounterChillicothe Hospital08-16-2024 NoteTri[facility]07-25-2024 Telephone encounter Note* Telephone Encounter - [place] Concepcion Hughes - 12/15/2023 4:28 PM EDT [...] prescription is good untilOctober. Please call daughter Radha Javier [facility] December 15, 2023 4:29 PM [facility]07-25-2024 Miscellaneous Notes* Telephone Encounter - [place] Concepcion Hughes - 12/15/2023 4:28 PM EDT [...] prescription is good untilOctober. Please call daughter Radha Javier Carlota Hughes December 15, 2023 4:29 PM documented in this encounterChillicothe Hospital04-18-2024 Hospital Discharge instructions Patient Education 09/08/2023 [...] provider approves. General instructions Take or apply isub-grl-hybsiuw and prescription medicines only as told by [...] your health care provider. Take or apply enwg-xpd-wtvdkrm and prescription medicines only as told by your health care provider. This includes any eye drops. This information is not intended to replace advice given to you by your health care provider. Make sure you discuss any questions you have with your health care provider. Document Released: 01/25/2012 Document Revised: 05/25/2019 Document Reviewed: 05/28/2019 Elsevier Patient Education 2020 [employer] Follow Up Care 09/06/2023 10:35:24 With:JEAN PIERRE ZIEGLER MD, [facility] Address: [address] [facility] [place] [address] [phone] When: Unknown Comments:Follow-up as scheduled [facility] 04-18-2024 Summary of episode note Discharge Instructions Thank you for allowing [facility] to assist you with your healthcare needs. The following is importantdischarge information regarding your hospital visit. What to do next Follow Up Appointments Follow Up with JEAN PIERRE ZIEGLER MD, [facility] When Why: Follow-up as scheduled Where: [address] [facility] [place] [address]- [phone] The Following Activity and Diet Have Been [...] Daily at bedtime Unchanged Misc Medication (FreeStyle Toribio 14 Day Sensor kit) CHANGE APPLIANCE EVERY [...] provider approves. General instructions Take or apply tpja-xfd-lmggevz and prescription medicines only as told by [...] your health care provider. Take or apply ddsg-vgv-xpooqlv and prescription medicines only as told by your health care provider. This includes any eye drops. This information is not intended to replace advice given to you by your health care provider. Make sure you discuss any questions you have with your health care provider. Document Released: 01/25/2012 Document Revised: 05/25/2019 Document Reviewed: 05/28/2019 [employer]iz[employer] Patient Education 2020 [employer] Additional Information VACCINATE! IT SAVES LIVES! Members of the community who have not yet received the COVID-19 vaccine and would like to receive it can visit one of [facility] vaccine clinics. There are many vaccine clinic locations within the [facility]. For locations and available times, please visit [email or web address].[place].gov/. It is important to note that some COVID mobile vaccine clinics are held outdoors and may be canceled in rainy or stormy conditions. To learn more about pediatric vaccinations (ages 5-11), we invite you to visit the [facility] webpage. [email or web address]/[email or web address] stions.htmlTo learn more about the COVID-19 vaccine, we invite you to visit the CDC website for a list of frequently asked questions.https://www.cdc.gov/coronavirus/2019-ncov/vaccines/faq.html [facility] Patient Portal Access Instructions: Stay connected with your healthcare team and access your personal medical information anytime with the [facility] Patient Portal. Please follow the directions below to create your [employer] account: 1.Access the email account you provided upon registration to the hospital/physician office.2.Look for an invitation email from [facility].3.Open the email and access the invitation link: AcceptInvitation to [facility].4.Fill in the required meyers to create your account. To access your account, visit [email or web address]. Click the blue button labeled Access Patient [...] who you will allowto register on the [facility] Patient Portal for access to your information. You can also access the [facility] on the [facility] aramis. Simply click on Patient Portal and then log into your account. If you would like to receive a full copy of your medical records, please contact the [facility] Medical Records Department by calling [phone], Tuesday through Tuesday between 8 a.m. and [...] Call your local pharmacy or go to [email or web address] to find one close to you.3.Make use of household items: Use cat litter or old coffee grounds to dispose medications if other options arenot available. Mix your drugs with these household products, seal them in an airtight container andthrow it into the garbage. Call [facility]: [phone] to be sure your drugs can be [...] that I should contact my do ctor. Patient/Director Product Management Signature: Date/Time: Relationship to Patient: Witness Name/Signature: Date/Time: [facility] [id number] Anesthesiology Consult note Patient: PERLA THOMPSON Age: [...] NIKKY AVENDANO MD on 09/08/2023 02:22 PM [facility] [id number] Anesthesiology Consult note Patient: PERLA THOMPSON Age: [...] Ophthalmic, PREOP pharm Documented Medications Documented FreeStyle Toribio 14 Day Sensor kit: CHANGE APPLIANCE EVERY [...] Cataract extraction and implantation of intraocular lens ([id number]) on 09/05/2023 at 88 Years. Comments: 09/07/2023 8:24 ISABEL Marte RIGHT EYE Angioplasty ([id number]) in 2021 at 87 Years. Comments: 09/07/2023 10:11 ISABEL Marte LEFT UPPER EXTREMITY FISTULOGRA IWTH CUTTING BALLON ANGIOPLASTY Repair of inguinal hernia ([id number]). Comments: 09/07/2023 8:23 ISABEL Marte UNSURE OF LATERALITY, HAD IN THE LATE 1960'S OR EARLY 1970'S Extn - Extraction of tooth ([id number]). Comments: 09/07/2023 8:23 ISABEL Marte ALL TEETH REMOVED AV - Arteriovenous fistula ([id number]). Comments: 09/07/2023 10:06 EDT - ISABEL Lewis LEFT ARM Social History Social & Psychosocial [...] Height 170.2 cm Admission Weight 98.7 kg [place] Body Weight 66.12 kg Type of Scale [...] Documentation reviewed: Current records. Assessment and Plan [place] [employer]esthesi[employer] (ASA) physical status classification: Class III. Anesthetic Preoperative Plan Premedication: intravenous. Anesthetic technique: General. Induction: intravenously. Maintenance airway: Oral endotracheal tube, RSI. Postoperative pain management: Per surgeon. Risks discussed: nausea, vomiting, headache, sore throat, dental injury, hypotension, allergic reaction, serious complications. Informed consent: signed by patient. Digitally Signed by JERMAINE SWANSON MD on 09/08/2023 12:14 PM [id number] Miscellaneous Notes* Telephone Encounter - Alanna Veloz [...] - 09/06/2023 4:57 PM EDT Patient daughter Radha calling father uses depends and is having irritated skin in groin and scrotal area. He has been using A& D ointment. She can not bring him in for an appt had surgery yesterday. Asking for a rx to be sent to [facility] please. Please advise documented in this encounterCh[facility]03-18-2024 Miscellaneous Notes* Telephone Encounter - Deborah Bedoya LPN - 08/08/2023 10:10 AM EDT Patient daughter Radha called and notified of rx sent. Deborah Bedoya LPN * Telephone Encounter - Husam Yan MD - 08/08/2023 9:36 AM EDT Rx sent. * Telephone Encounter - Demetra Lopez - 08/08/2023 8:27 AM EDT Perla is calling Husam Yan MD today to request Medication Problem (Freestyle toribio 14 day sensor kit - patient's sensor reader is a toribio 2 and the sensors ordered by our office are incompatible with his reader )please correct this and send the correct sensor kit to the patient as he is not able to use these sensors with his current CGM. Patient has been identified by name and birthdate. Duration of symptoms: N/A Person calling: self Call patient at: at home [phone] (home) [phone] (cell) Was an appointment scheduled: No Closing statement: Results or non-symptom based questions: Thank you for [facility], your call will be returned within the next business day. Demetra Hughes documented in this encounterChillicothe Hospital03-07-2024 Miscellaneous Notes* Telephone Encounter - Meredith [...] Prescriptions Disp Refills flash glucose sensor (FREESTYLE TORIBIO 14 DAY SENSOR) kit 2 Kit 4 Si Each four times daily. RX INSTRUCTIONS: Patient aware RX escripted to mail away pharmacy. No need to notify patient. Demetra Hughes documented in this encounterChillicothe Hospital02-21-2024 Miscellaneous Notes* Telephone Encounter - Valerie Burris LPN - 07/13/2023 8:14 AM EST Spoke to Radha, daughter and message given that short term prescription was sent to the pharmacy. Valerie Burris LPN * Telephone Encounter - Lauren Arzola APRN.CNP - 07/13/2023 6:58 AM EST New prescription sent to [facility] Arzola APRN.CNP * Telephone Encounter - Heike Lainez - 07/12/2023 8:44 AM EST Patient's daughter, Radha, said a mail order rx for Ozempic was sent in yesterday for this patient. Said patient is completely out of medication. Wants to know if a short term refill can be sent to [facility] in [place]. Do not cancel mail order rx. * Telephone Encounter - Heike Lainez - 07/12/2023 8:43 AM EST Patient has been identified by name and date of : Yes, Provider Payal DaughterRadha phones for refill(s): Requested Prescriptions Pending Prescriptions Disp Refills semaglutide (OZEMPIC) 0.25 mg or 0.5 mg(2 mg/1.5 mL) pen Sig: Inject 0.5 mg subcutaneously one time a week. Date of last office visit in primary care: 05/25/2023 Date of next office visit in primary care: 09/23/2023 Please advise. Thank you. Heike Hughes. documented in this encounterChillicothe Hospital02-19-2024 Miscellaneous Notes* Telephone Encounter - Marina [...] visit in primary care: 09/23/2023 Patient using [facility] mail order please send new RX to mail order Per [facility] patient has no refills Please advise. Thank you. Marina Anguiano. documented in this encounterChillicothe Hospital02-05-2024 History of Present illness Narrative* Danilo [...] Objective: [facility]: DP and PT pulses are nonpalpable [...] long-term current use of insulin ([facility]) (primary encounter diagnosis) (B35.1) Onychomycosis [...] RTC in 3-4 months. Danilo Martines DPM RA * Catalina Ng RN - 06/27/2023 11:09 AM EST Patient presents with: Left Foot - Established Patient, Follow Up, Diabetic Foot Care Right Foot - Established Patient, Follow Up, Diabetic Foot Care Patient presents for diabetic foot care. SAMINA- 07/15/21. Patient tried cutting some of his toenails last week. Clipped 1st and 2nd toe. Swelling to bilateral legs, using zip up compression stockings. documented in this encounterChillicothe Hospital02-05-2024 Instructions* Patient Instructions* Danilo Martines - [...] (or decreased sensation in your feet) a rail technician should always cut your toenails. Be Careful [...] Go to your health care provider or rail technician to treat these conditions. documented in this encounterChillicothe Hospital10-24-2023 Miscellaneous Notes* Telephone Encounter - Mayela Hopson LPN - 03/15/2023 9:56 AM EDT Negar from [facility] requesting copy of immunization record for flu shot information be faxed to [phone]. Printed and faxed as requested. documented in this encounterChillicothe Hospital10-17-2023 Miscellaneous Notes* Telephone Encounter - Mayela Hopson LPN - 03/08/2023 9:13 AM EDT Phoned patient daughter Radha and aware rx sent to pharmacy from PCP. * Telephone Encounter - Husam Yan MD - 03/08/2023 8:55 AM EDT Rx sent * Telephone Encounter - Maite Ribeiro - 03/08/2023 8:22 AM EDT Patient's daughter calling and states that the medication Ozempic was not called into patient's mail order pharmacy. [facility] send to [facility]. documented in this encounterChillicothe Hospital10-05-2023 Miscellaneous Notes* Telephone Encounter - Margret Linares LPN - 02/24/2023 1:12 PM EDT Called the pharmacy and this was billed through insurance and picked up in 02/22/23. * Telephone Encounter - Margret Linares LPN - 02/24/2023 1:09 PM EDT PERLA TRISTIAN (Figueroa: [id number]) Rx #: [id number] Ozempic (0.25 or 0.5 MG/DOSE) 2MG/3ML pen-injectors Form [employer] Electronic PA Form Created 3 days ago Sent to Plan 20 hours ago Plan Response 20 hours ago Submit Clinical Questions 20 hours ago Determination Favorable 1 hour ago Message from Plan PA Case: [id number], Status: Approved, Coverage Starts on: 02/24/2023 12:15:13 PM, Coverage Ends on: 02/24/2023 12:15:13 PM. Questions? Contact . documented in this encounterChillicothe Hospital08-15-2023 Telephone encounter Note * Telephone Encounter [...] week. Please review and advise. Magaly Bhakta [facility]08-15-2023 Miscellaneous Notes* Telephone Encounter - Magaly [...] and advise. Magaly Bhakta documented in this encounterChillicothe Hospital07-17-2023 Instructions* Patient Instructions* PodlogLauren suarez APRN.NURSING STAFFING COORDINATOR - 12/06/2022 9:40 AM EDT WHAT YOU [...] review all the medicines you take, even muzp-acg-kpbzsgn medicines. As you get older, the way [...] have certain medical conditions. documented in this encounterChillicothe Hospital07-17-2023 History of Present illness Narrative* Lauren [...] he has bad knees. DIABETES MELLITUS: Mr. Thopmson was last seen on 09/06/2022. Since our [...] months CKD: Follows up with Dr. Khoury [facility]. Has dialysis three times a week. [...] 1 tablet by mouth once daily. Insulin [place], Disposable, (BD ULTRA-FINE SHAHEEN PEN NEEDLE) 32 [...] done COVID-19 VACCINE(4 - Additional dose for Gage series) due on 07/06/2022 DIABETIC FOOT EXAM [...] materials provided. - continue to use kostas Aguilar Podlogar, KITCHEN HAND.NURSING STAFFING COORDINATOR Prescription instructions reviewed with patient as applicable. [...] which included preparing to see the patient, [id number] patient care, completing clinical documentation, obtaining and/or reviewing separately obtained history, performing a medically appropriate examination, counseling and educating the pat ient/family/caregiver, and ordering medications, tests, or procedures. documented in this encounterChillicothe Hospital06-26-2023 Miscellaneous Notes* Telephone Encounter - Liza [...] of Last Labs: 09/06/2022 documented in this encounterChillicothe Hospital06-15-2023 Miscellaneous Notes* Telephone Encounter - Aparna Madsen, RAY - 11/04/2022 11:15 AM EDT Patient's daughter called back in, the test strips are called [employer], [facility] [place]. Please review. Aparna Madsen, PSS November 04, 2022 11:16 AM * Telephone [...] right testing strips to be sent to [facility]. Please review and advise, Liza Johnson RN documented in this encounterChillicothe Hospital06-07-2023 Miscellaneous Notes* Telephone Encounter - Harper [...] and advise. Harper Fisher documented in this encounterChillicothe Hospital04-17-2023 History of Present illness Narrative* Lauren Xielogar, KITCHEN HAND.NURSING STAFFING COORDINATOR - 09/06/2022 9:50 AM EDT 09/06/2022 Patient [...] dialysis CKD: Follows up with Dr. Khoury [facility]. Has dialysis three times a week. [...] sugar(s) 2x daily. DxE11.65. Insulin: No. Insulin [place], Disposable, (BD ULTRA-FINE SHAHEEN PEN NEEDLE) 32 [...] long-term current use of insulin ([facility]) - ICD9: 250.50, 362.05, 362.07, [...] follow-up with cardiology as scheduled Lauren Arzola APRN.LUZ Prescription instructions reviewed with [...] which included preparing to see the patient, [id number] patient care, completing clinical documentation, obtaining and/or reviewing separately obtained history, performing a medically appropriate examination, counseling and educating the pat ient/family/caregiver, and ordering medications, tests, or procedures. documented in this encounterChillicothe Hospital03-30-2023 Miscellaneous Notes* Telephone Encounter - Aimee Corey - 08/19/2022 10:15 AM EDT Patient has been identified by name and date of : Yes, Provider PAYAL Patient phones for refill(s): Requested Prescriptions Pending [...] Thank you. Aimee Nicole documented in this encounterChillicothe Hospital01-17-2023 Miscellaneous Notes* Telephone Encounter - Lauren Arzola APRN.LUZ - 06/08/2022 10:10 AM EST Ozempic sent to mail order. Lauren Arzola APRN.LUZ * Telephone Encounter - Deborah Bedoya LPN - 06/08/2022 10:00 AM EST Patients daughter telephoned and notified of results and recommendations. Voices understanding. [facility] stated they wont have the ozempic until [...] will place referral order. documented in this encounterChillicothe Hospital01-16-2023 History of Present illness Narrative* Husam [...] 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) [place], Th, Sat Glaucoma Dr Jimenez LBBB (left [...] sugar(s) 2x daily. DxE11.65. Insulin: No. Insulin [place], Disposable, (BD ULTRA-FINE SHAHEEN PEN NEEDLE) 32 [...] long-term current use of insulin ([facility]) - ICD9: 250.50, 362.05, 362.07, [...] stage renal disease) on dialysis ([facility]) - ICD9: 585.6, V45.11, ICD10: [...] diet. Husam Yan MD documented in this encounterChillicothe Hospital10-24-2022 Miscellaneous Notes* Telephone Encounter - Yamel Roe Ma - 03/15/2022 11:00 AM EDT Call to daughterRadha notified her of message below, verbalized understanding. Yamel Roe Ma * Telephone Encounter - Husam Yan MD - 03/15/2022 10:19 AM EDT Reviewed. Would recommend checking his sugars when fasting and before bed and bring in readings to next OV. * Telephone Encounter - Breanne Carvalho RN - 03/15/2022 10:12 AM EDT DaughterRadha, phoned to let pcp know, patient declined to add novolog. Patient plans to continuetaking lantus as ordered and work to better manage meals and diet instead. * Telephone Encounter - Deborah Bedoya LPN - 03/09/2022 2:52 PM EDT Patient telephoned but line busy. Daughter Radha telephoned. Results and recommendations below given. Radha states she will talk with her father [...] new regimen. If agreeable, will call in [email or web address] to his pharmacy. Kidney function in ESRD range. Continue with dialysis. Cholesterol looks good. documented in this encounterChillicothe Hospital10-14-2022 History of Present illness Narrative* Husam Yan MD - 03/05/2022 9:49 AM EDT Chief Complaint Patient presents with: Follow Up: 6 month HPI Perla Thompson is a 86 year old male who presents here today for 6 month follow up. Accompanied today by daughter Radha. No recent hospitalizations, ER visits, or falls. [...] with dialysis 3 days per week at [facility] as directed. albumin was low on his last check. Has not made change to his diet. BP well controlled without medication. Got his flu shot at dialysis. Plans to get COVID booster at dialysis. Past medical history, appointments, medications, allergies reviewed. Previous Medical History PAST MEDICAL HISTORY Diagnosis Date Chronic diastolic heart failure ([facility]) Dr. Bacon ESRD (end stage renal disease) on dialysis ([facility]) Josh, Thai, Sat Glaucoma Dr Jimenez LBBB (left bundle branch block) Dr. Bacon Lower extremity edema Mobitz (type) I (Wenckebach's) atrioventricular block Onychomycosis Osteoarthritis knees Other and unspecified hyperlipidemia Proliferative diabetic retinopathy of both eyes with macular edema associated with type 2 diabetes mellitus ([facility]) moderate, left macular edema-Dr. Jimenez [...] sugar(s) 2x daily. DxE11.65. Insulin: No. Insulin [place], Disposable, (BD ULTRA-FINE SHAHEEN PEN NEEDLE) 32 gauge x /32 Use one needle for each dose. 1x/day. [...] Never done COVID-19 VACCINE(3 - Booster for Gage series) due on 05/21/2021 ADVANCE DIRECTIVE DISCUSSION [...] long-term current use of insulin ([facility]) - ICD9: 250.50, 362.04, 362.07, [...] stage renal disease) on dialysis ([facility]) - ICD9: 585.6, V45.11, ICD10: N18.6, Z99.2 Continue dialysis 3 days per week. F/u nephrology recommendations. 5. Need for COVID-19 vaccine - ICD9: V04.89, ICD10: Z23 - [employer] COVID-19 BIVALENT BOOSTER VACCINE, AGE 12+ YR Husam Yan MD documented in this encounterChillicothe Hospital09-19-2022 Miscellaneous Notes* Telephone Encounter - Deborah Bedoya LPN - 02/08/2022 9:58 AM EDT Daughter Radha notified. Voices understanding. Deborah Bedoya LPN * [...] Bernarda Pt was given a Generic from [facility]. Spoke with [facility] Pharmacist and Tresiba was given to the pt. Please advise daughter Radha on what to do till medication Lantus [...] let [facility]. What insulin did they receive from [facility]. Thanks, Lauren Arzola APRN.CNP * Telephone Encounter - Concepcion Van Pss - 02/08/2022 8:09 AM EDT Daughter Radha is calling and she stated she needs to know what is going on because this was supposed to arrive from [facility]. Then a prescription went to [facility] and they filled something but it was not Lantus; patient is afraid to take the insulin because he does not know what it is. Patient is out of medication. Please call Radha, ; she needs to know what is going on. * Telephone Encounter - Catalina Ruth RN - 02/03/2022 9:06 AM EDT Madhuri with [employer] called in and is going to fax over PA information on the Glargine U100 to fax # [phone]. She is asking to have it faxed back to them. documented in this encounterChillicothe Hospital09-13-2022 Miscellaneous Notes* Telephone Encounter - Alanna Veloz LPN - 02/02/2022 1:53 PM EDT SAMINA 09/02/21 NOV 03/05/22 * Telephone Encounter - Marina Dee [facility] - 02/02/2022 12:36 PM EDT Patient has been identified by name and date of : Yes Requested Prescriptions Pending Prescriptions Disp Refills insulin glargine (LANTUS SOLOSTAR U-100 INSULIN) 100 unit/mL (3 mL) 5 Each 0 Sig: Inject 18 Units subcutaneously once daily. RX INSTRUCTIONS: NOTE; PATIENT HAS NOT RECEIVED THE MAIL ORDER RX REQUESTED ON 01/26/2022 FOR HIS [facility],PLEASE FILL THIS SOON POSSIBLE Patient aware RX will be sent to pharmacy. No need to notify patient. Marina [facility] documented in this encounterChillicothe Hospital09-06-2022 Miscellaneous Notes* Telephone Encounter - Harper García [...] advise. Harper García Pss documented in this encounterChillicothe Hospital07-25-2022 Miscellaneous Notes* Telephone Encounter - Amirah [...] need to notify patient. Amirah Bee MA Samina: 08/2021 Nov: 02/2022 Last refill: 02/2021 documented in this encounterChillicothe Hospital05-06-2022 Miscellaneous Notes* Telephone Encounter - Husam Yan MD - 09/25/2021 12:56 PM EDT Reviewed. * Telephone Encounter - Breanne Carvalho RN - 09/25/2021 12:42 PM EDT Daughter, Radha, returned call from pcp office. Reports patient received call also, but he won't return calls. Given provider's message below with verbalized understanding. Reports she will try to get patient to see zigzag tunnel elastic operator, but doesn't think he will. Reports patient [...] week with his readings. 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 02/28/2020 Noncompliance with diet and medication regimen 1 06/17/2012 11/18/2016 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 04/07/2013 11/18/2016 Leg edema 07/14/2009 02/28/2020 documented as of this encounter (statuses as of 10/07/2021) [facility] of [facility] Narrative* Problem Noted Date Resolved Date 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 12/19/2015 04/26/2016 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 02/28/2020 Noncompliance with diet and medication regimen 1 06/17/2012 11/18/2016 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 04/07/2013 11/18/2016 Leg edema 07/14/2009 02/28/2020 documented as of this encounter (statuses as of 12/14/2021) [facility] Narrative* Problem Noted Date Resolved Date 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 12/19/2015 04/26/2016 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 02/28/2020 Noncompliance with diet and medication regimen 1 06/17/2012 11/18/2016 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 04/07/2013 11/18/2016 Leg edema 07/14/2009 02/28/2020 documented as of this encounter (statuses as of 02/02/2022) [facility] Narrative* Problem Noted Date Resolved Date 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 12/19/2015 04/26/2016 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 02/28/2020 Noncompliance with diet and medication regimen 1 06/17/2012 11/18/2016 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 04/07/2013 11/18/2016 Leg edema 07/14/2009 02/28/2020 documented as of this encounter (statuses as of 02/08/2022) [facility] Narrative* Problem Noted Date Resolved Date 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 12/19/2015 04/26/2016 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 02/28/2020 Noncompliance with diet and medication regimen 1 06/17/2012 11/18/2016 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 04/07/2013 11/18/2016 Leg edema 07/14/2009 02/28/2020 documented as of this encounter (statuses as of 02/19/2022) [facility] Narrative* Problem Noted Date Resolved Date 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 12/19/2015 04/26/2016 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 02/28/2020 Noncompliance with diet and medication regimen 1 06/17/2012 11/18/2016 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 04/07/2013 11/18/2016 Leg edema 07/14/2009 02/28/2020 documented as of this encounter (statuses as of 03/10/2022) [facility] Narrative* Problem Noted Date Resolved Date 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 12/19/2015 04/26/2016 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 02/28/2020 Noncompliance with diet and medication regimen 1 06/17/2012 11/18/2016 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 04/07/2013 11/18/2016 Leg edema 07/14/2009 02/28/2020 documented as of this encounter (statuses as of 03/15/2022) [facility] Narrative* Problem [...] of this encounter (statuses as of 06/07/2022) [facility] Narrative* Problem [...] of this encounter (statuses as of 06/08/2022) [facility] Narrative* Problem [...] of this encounter (statuses as of 08/19/2022) [facility] Narrative* Problem [...] of this encounter (statuses as of 09/06/2022) [facility] Narrative* Problem [...] of this encounter (statuses as of 10/28/2022) [facility] Narrative* Problem [...] of this encounter (statuses as of 11/04/2022) [facility] Narrative* Problem [...] of this encounter (statuses as of 11/15/2022) [facility] Narrative* Problem [...] of this encounter (statuses as of 12/06/2022) [facility] Narrative* Problem [...] of this encounter (statuses as of 02/26/2023) [facility] Narrative* Problem [...] of this encounter (statuses as of 03/08/2023) [facility] Narrative* Problem [...] of this encounter (statuses as of 03/15/2023) [facility] Narrative* Problem [...] of this encounter (statuses as of 06/27/2023) [facility] Narrative* Problem [...] of this encounter (statuses as of 07/11/2023) [facility] Narrative* Problem [...] of this encounter (statuses as of 07/13/2023) [address] History of Past illness Narrative* Problem Noted [...] of this encounter (statuses as of 07/28/2023) [facility] Narrative* Problem [...] of this encounter (statuses as of 08/08/2023) [facility] Narrative* Problem [...] of this encounter (statuses as of 09/07/2023) [facility] HospitalConsult note Author Hakan Gunter [facility] Note Date/Time January 25, 2025 4:46pm [facility] Medical Records Department [address] [place] [address] Consultation - Orthopedics 01/25/25 1644 MR#: [id number] Acct: [id number] Name: PERLA THOMPSON Rep #:[id number] : [id number] 89 From: Hakan Gunter MD PCP: Dr. Nando Wiggins MD Status:R EG ER Location: ED HPI Consult Data Date of Consult: 01/25/25 HPI Narrative HPI Narrative: PERLA THOMPSON is a 89 M who presents with a right hip fracture, in the setting ofa prior below knee amp on that side. 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 Wound, open, foot End stage renal disease MRSA (methicillin resistant staph aureus) culture positive Cutaneous abscess of right foot Diabetic infection of right foot Acute hyperkalemia Open wound Lives in longterm Dietary restriction History of stress test History of echocardiogram Cardiology follow-up encounter History of atrial fibrillation Insulin dependent diabetes mellitus Other specified peripheral vascular diseases 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 ESRD (end [...] 50 mg tablet (Stimulant Laxative Constipation Plus) cholecalciferol (vitamin D3) 125 125 mcg PO [...] BID #180 ta bs 10/30/24 Unknown Rx acetaminophen 500 mg capsule 1,000 mg PO Q8H PRN PRN f ever or 11/22/24 Unknown History pain Allergy/AdvReac Type Severity Reaction Status Date / Time pioglitazone (From Actos) Allergy fatigue Verified 11/22/24 08:49 simvastatin (From Zocor) Allergy myalgia Verified 11/22/24 08:49 sitagliptin (From Januvia) Allergy unknown Verified 11/22/24 08:49 Family History Mother Hypertension Father Diabetes COPD (chronic obstructive pulmonary disease) Surgical History Hx of amputation History of incision and drainage Hx of foot surgery History of cataract extraction History of ligation of vein History of arteriovenostomy for renal dialysis History of inguinal hernia repair History of appendectomy Social History housing: longterm current occupational status: retired Smoking Status: Never smoker alcohol intake: never substance use type: does not use caffeine: Yes Type: coffee Number of servings: 1 what type of physical activity do you participate in: none seatbelt use: always do you feel safe at home: Yes Vital Signs Vital Signs Vital Signs: 01/25/25 15:27 Temperature 97.5 F L Temperature Source Oral Pulse Rate 63 Respiratory Rate 16 Blood Pressure 131/60 H Blood Pressure Mean 83 Pulse Ox 92 Oxygen Delivery Method Room Air Weight Weight: 218 lb 7.649 oz Body Mass Index (BMI) 31.3 Lab / Micro Data 01/25/25 16:35 01/25/25 15:28 Labs: Laboratory Results - last 24 hr 01/25/25 16:35: WBC 6.8, RBC 3.16 L, Hgb 9.9 L, Hct 29.9 L, MCV 94.6 H, MCH 31.3, MCHC 33.1, RDW Std Deviation 54.0 H, RDW Coeff of Frances 15.5 H, Plt Count 164, MPV 10.6, Immature Gran % (Auto) 0.400, Neut % (Auto) 68.9, Lymph % (Auto) 18.0 L, [place] % (Auto) 9.6, Eos % (Auto) 2.4, Baso % (Auto) 0.7, Absolute Neuts (auto) 4.7, Absolute Lymphs (auto) 1.22, Nucleated RBC % 0 Imaging Radiology Impression Hip/Pelvis X-Ray 01/25/25 15:39 IMPRESSION: Comminuted impacted right intertrochanteric fracture. Reading Location: [facility] Chest X-Ray 01/25/25 15:57 IMPRESSION: Low lung volumes. Congestion. Reading Location: [facility] Assessment & Plan Assessment/Plan (1) Closed right hip fracture: PLAN: 89 yr man right IT hip fracture. Recommend for long IM nail. Challenge to control the reduction without a foot, and given many other med problems, and on blood thinners. Need hospitalist clearance and anesthesia opinion before proceeding with surgery. Will order femur and tibia xrays to assess prior to surgery - likely manual traction or shanz / traction pin in the proximal tibia or distal femur for reduction control while nailing the fracture. MEGAN for now. 01/25/256 <Electronically signed by Hakan Gunter MD> Cosigner Signature (if applicable): CC: Dr. Nando Wiggins MD~ Signed [facility] Work Phone: Consult note Author Hakan Gunter [facility] Note Date/Time January 25, 2025 6:10pm [facility] Medical Records Department [address] [place] [address] Consultation - Orthopedics 01/25/25 180 MR#: [id number] Acct: [id number] Name: PERLA THOMPSON Rep #:[id number] : 1935 89 From: Hakan Gunter MD PCP: Dr. Nando Wiggins MD Status:A DM IN Location: MS3 [id number] HPI Consult Data Date of Consult: 01/25/25 HPI Narrative HPI Narrative: PERLA THOMPSON, is a 89 M who presents with a right hip fracture. Fell out of a chair in longterm. does not ambulate for months now. uses a radha lift. his son and daughter are here at the bed side. on dialysis. has right below knee amp. [facility] Medical History (Updated 01/25/25 @ 17:37 by Beau Dunlap MD) Closed right hip fracture Presence of leadless cardiac pacemaker Atherosclerosis of al[place] artery of right leg with gangrene Wound, open, foot End stage renal disease MRSA (methicillin resistant staph aureus) culture positive Cutaneous abscess of right foot Diabetic infection of right foot Acute hyperkalemia Open wound Lives in longterm Dietary restriction History of stress test History of echocardiogram Cardiology follow-up encounter History of atrial fibrillation Insulin dependent diabetes mellitus Other specified peripheral vascular diseases 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 ESRD (end [...] PO MOWEFR water pill 04/14/24 08/27/24 History sennosides 8.6 mg-docusate sodium 1 tab-cap PO BID PRN PRN 06/04/24 06/05/24 History 50 mg tablet (Stimulant Laxative Constipation Plus) cholecalciferol (vitamin D3) 125 125 mcg PO DAILY SUPP LEMENT 07/13/24 08/28/24 History mcg (5,000 unit) capsule benzocaine 15 mg-menthol 3.6 mg 2 mariaa mucous membrane Q2H PRN PRN 07/20/24 Unknown Rx lozenges (Sore Throat (benzocaine sore throat #0 ea with menthol)) apixaban 2.5 mg tablet (Eliquis) 2.5 mg PO BID #180 ta bs 10/30/24 Unknown Rx acetaminophen 500 mg capsule 1,000 mg PO Q8H PRN PRN f ever or 11/22/24 Unknown History pain calcium acetate(phosphat bind) 667 667 mg PO TID 01/25 Unknown History mg capsule dulaglutide 0.75 mg/0.5 mL 1.5 mg subcut .Qtuesday 10/14 Unknown History subcutaneous pen injector (Trulicity) insulin glargine 100 unit/mL (3 14 unit subcut DAILY d iabetes 01/25/25 Unknown History mL) subcutaneous pen vitamin B complex-vitamin C-folic 1 tab PO DAILY 01/25 Unknown History acid 400 mcg tablet Allergy/AdvReac Type Severity Reaction Status Date / Time pioglitazone (From Actos) Allergy fatigue Verified 11/22/24 08:49 simvastatin (From Zocor) Allergy myalgia Verified 11/22/24 08:49 sitagliptin (From Januvia) Allergy unknown Verified 11/22/24 08:49 Family History Mother Hypertension Father Diabetes COPD (chronic obstructive pulmonary disease) Surgical History Hx of amputation History of incision and drainage Hx of foot surgery History of cataract extraction History of ligation of vein History of arteriovenostomy for renal dialysis History of inguinal hernia repair History of appendectomy Social History housing: longterm current occupational status: retired Smoking Status: Never smoker alcohol intake: never substance use type: does not use caffeine: Yes Type: coffee Number of servings: 1 what type of physical activity do you participate in: none seatbelt use: always do you feel safe at home: Yes Vital Signs Vital Signs Vital Signs: 01/25/25 15:27 01/25/25 17:00 Temperature 97.5 F L Temperature Source Oral Pulse Rate 63 90 Respiratory Rate 16 16 Blood Pressure 131/60 H 125/73 H Blood Pressure Mean 83 90 Pulse Ox 92 90 Oxygen Delivery Method Room Air Nasal Cannula Weight Weight: 218 lb 7.649 oz Body Mass Index (BMI) 31.3 Physical Exam Const alert Constitutional Narrative: in pain General Appearance: cooperative Extremity Extremity Narrative: closed, ER of the right BEBE bka well healed stump, good size proximal tibia segment. warm. Lab / Micro Data 01/25/25 16:35 01/25/25 15:28 Labs: Laboratory Results - last 24 hr 01/25/25 15:28: Sodium 136, Potassium 4.4, Chloride 97 L, Carbon Dioxide 27.0, Anion Gap 13, BUN 47 H, Creatinine 5.11 H, Estim Creat Clear Calc 12.02 L, Est GFR (MDRD) Non-Af 10 L, BUN/Creatinine Ratio 9.3 L, Glucose 213 H, Calcium 8.9 01/25/25 16:35: WBC 6.8, RBC 3.16 L, Hgb 9.9 L, Hct 29.9 L, MCV 94.6 H, MCH 31.3, MCHC 33.1, RDW Std Deviation 54.0 H, RDW Coeff of Frances 15.5 H, Plt Count 164, MPV 10.6, Immature Gran % (Auto) 0.400, Neut % (Auto) 68.9, Lymph % (Auto) 18.0 L, [place] % (Auto) 9.6, Eos % (Auto) 2.4, Baso % (Auto) 0.7, Absolute Neuts (auto) 4.7, Absolute Lymphs (auto) 1.22, Nucleated RBC % 0 Imaging Radiology Impression Hip/Pelvis X-Ray 01/25/25 15:39 IMPRESSION: Comminuted impacted right intertrochanteric fracture. Reading Location: [facility] Chest X-Ray 01/25/25 15:57 IMPRESSION: Low lung volumes. Congestion. Reading Location: [facility] 2 part IT hip fracture. 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 I will go ahead and get x- rays of the rest of the lower extremity on that side for surgical planning. Discussed the pros and cons risks and benefits of nonoperative treatment versus surgery with the patient and their son and daughter. Generallythis is preferred for surgery even though the patient does not ambulate for paincontrol and palliation. I recommended for intramedullary nailing open reductioninternal fixation with a long nail given the poor bone quality. The lack of a foot makes things a little bit challenging we will have to put a distal femoral traction pin or a traction pin in the proximal tibia to achieve longitudinal traction and internal rotation to try to line up the segment as best as possible. Risks of surgery as well as nonsurgery discussed typically risks of nonsurgery or higher therefore surgery is recommended. Risks of doing nothing pain VTE pneumonia and other problems. That being said surgery has risks as well infection pain stiffness bleeding damage to other structures delayed or nonunion or malunion. They understood wished to go ahead with surgery the daughter signed the consent form marked the right lower extremity and will get the patient admitted under Dr. Osuna the hospitalist and cleared for surgery aswell as the patient is on blood thinners we will have to hold those and possiblygive the patient factor replenishment prior to the surgery. For now MEGAN, NPO at [facility] in hopes of doing the procedure tomorrow. 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 Pros and cons risks and benefits were discussed with the patient including but not limited to infection, pain, stiffness, bleeding, damage to surrounding structures, neurovascular injury, recurrence or retear, failure or wear of hardware or fixation, instability, fracture, deep vein thrombosis and pulmonary embolism, anesthetic risks, , patient dissatisfaction, need for further surgery and other risks. Patient understood and wished to proceed with surgery,and signed the informed consent documentation. 01/25/251809 <Electronically signed by Hakan Gunter MD> Cosigner Signature (if applicable): CC: Dr. Nando Wiggins MD~ Signed [facility] Work Phone: Evaluation + Plan note No data available for this section [facility] Evaluation note* Diagnosis Onset Date Resolution Status Problem with dialysis access acute Problem with dialysis access acute [facility] Work Phone: Evaluation note* Diagnosis 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 edema, without long-term current use of insulin ([facility]) [facility]* Diagnosis 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 edema, without long-term current use of insulin ([facility]) documented in this encounter [facility] note* Diagnosis 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 edema, without long-term current use of insulin ([facility]) [facility]* Diagnosis 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 edema, without long-term current use of insulin ([facility]) [facility]* Diagnosis 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 edema, without long-term current use of insulin ([facility])- Primary Essential hypertension Unspecified essential hypertension Mixed hyperlipidemia 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) End stage renal disease Need for COVID-19 vaccine documented in this encounter [facility] note* Diagnosis 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, without long-term current use of insulin ([facility])- Primary Essential hypertension Unspecified essential [...] long-term current use of insulin ([facility]) [facility]* Diagnosis 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, without long-term current use of insulin ([facility]) [facility]* Diagnosis 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, without long-term current use of insulin ([facility]) [facility] Diagnosis 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, without long-term current use of insulin ([facility])- Primary 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) End stage renal disease Chronic diastolic heart failure (HCC) Chronic diastolic heart failure [facility] Diagnosis 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 edema, without long-term current use of insulin ([facility]) [facility] Diagnosis 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, without long-term current use of insulin ([facility]) [facility] Diagnosis 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, without long-term current use of insulin ([facility])- Primary Lower extremity edema Edema 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) End stage renal disease Chronic diastolic heart failure (HCC) Chronic diastolic heart failure Essential hypertension Unspecified essential hypertension 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 At high risk for falls Personal history of fall [facility]* Diagnosis 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, without long-term current use of insulin ([facility]) [facility] Diagnosis 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 edema, without long-term current use of insulin ([facility])- Primary Onychomycosis Dermatophytosis of nail Left foot pain Pain in limb Right foot pain Pain in limb [facility] Diagnosis 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, without long-term current use of insulin ([facility]) [facility]* Diagnosis 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, without long-term current use of insulin ([facility]) [facility] Diagnosis 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 edema, with long-term current use of insulin ([facility]) [facility] Diagnosis 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, without long-term current use of insulin ([facility]) [facility] Diagnosis 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 edema, with long-term current use of insulin ([facility])- Primary 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) End stage renal disease Chronic diastolic heart failure (HCC) Chronic diastolic heart failure 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 Lower extremity edema Edema Essential hypertension Unspecified essential hypertension Mixed hyperlipidemia [facility]* Diagnosis 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, without long-term current use of insulin ([facility]) [facility]* Diagnosis 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, acquired [facility]* Diagnosis 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, without long-term current use of insulin ([facility])- Primary 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) End stage renal disease [facility]* Diagnosis Right foot infection- Primary Unspecified local infection of skin and subcutaneous tissue [facility]* Diagnosis 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, without long-term current use of insulin ([facility]) [facility] Additional Instructions CT scan of the brain showed no broken bones or internal bleeding. Give Tylenol as needed. Keep the small nasal wound clean. If symptoms worsen such as a severe headache, vomiting, confusion please return to the ER.[facility] Work Phone: Reason for referral (narrative)* Diagnostic Procedure Only (Routine) - Closed Specialty Diagnoses / Procedures Referred By Tay t Referred To Contact XR IMAGING Diagnoses Deformity of both feet Procedures XR FOOT GENERAL 3V AP/LAT/OBL BILAT X-RAY FOOT MINIMUM 3 VIEWS Husam Yan MD [address] [place] [address] [place] [id number] Referral ID Status Reason Start Date Expiration Date V isits Requested Visits Authorized Closed Auto-Generate d Referral 03/04/2021 04/03/2022 1 1 [facility]No reason for referral information [facility] Work Phone: Reason for visit Narrative* Diagnostic Procedure Only (Routine) - Closed Specialty Diagnoses / Procedures Referred By Contac t Referred To Contact XR IMAGING Diagnoses Deformity of both feet Procedures XR FOOT GENERAL 3V AP/LAT/OBL BILAT X-RAY FOOT MINIMUM 3 VIEWS Husam Yan MD [address] [place] [address] [place] [id number] Referral ID Status Reason Start Date Expiration Date V isits Requested Visits Authorized Closed Auto-Generate d Referral 03/04/2021 04/03/2022 1 1 [facility] Chief Complaint and Reason for Visit Chief Complaint L ARM DIALYSIS CATH LOW ADEQUECY LOW ACCESS FLOW DIALYSIS ACCESS COMPLICATION DIALYSIS ACCESS COMPLICATION Reason for Visit Problem with dialysi s access Problem with dialysis access Chief Complaint Admit Date [facility] June 06, 2024 5:00am 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 June 06, 2024 5:57am POST-OP EXAM June 06, 2024 2 :32pm LABWORK June 08, 2024 5 :00am [facility] June 11, 2024 5:00am LAB [...] WOUND August 20, 2024 1:5 9pm [facility] August 27, 2024 4: 00am [...] chronic disease August 29 1:06pm 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 August 29, 2024 1:06pm Wound, open, foot August 29, 2024 1:06 pm 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 September 24, 2024 9:58am Chief Complaint Admit Date [facility] June 06, 2024 5:00am 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 June 06, 2024 5:57am POST-OP EXAM June 06, 2024 2 :32pm LABWORK June 08, 2024 5 :00am [facility] June 11, 2024 5:00am LAB [...] WOUND August 20, 2024 1:5 9pm [facility] August 27, 2024 4: 00am [...] chronic disease August 29 1:06pm 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 [...] WOUND August 20, 2024 1:5 9pm [facility] August 27, 2024 4: 00am [...] chronic disease August 29 1:06pm 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 [...] WOUND August 20, 2024 1:5 9pm [facility] August 27, 2024 4: 00am [...] chronic disease August 29 1:06pm 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 [...] WOUND August 20, 2024 1:5 9pm [facility] August 27, 2024 4: 00am WOUND August 27, 2024 8:23 am WOUND August 27, 2024 9:27 am RE-ADMISSION EXAM September 05, 2024 5:4 0pm LABWORK September 10, 2024 5:0 0am LABWORK September 12, 2024 5:0 0am [facility] September 17, 2024 4 :00am LABWORK September 24, 2024 5:00am WOUND September 24, 2024 9:58am WOUND September 24, 2024 11:01a m LABWORK October 02, 2024 5:00a m Remove hola/Amp 08/29/2024 October 03, 2 025 8:55am [facility] October 08, 2024 4:0 0am [facility] October 16, 2024 5:0 0am 2 WK FU October 17, 2024 10:05 am [facility] October 29, 2024 4:0 0am 1 Y FU October 29, 2024 9:45a m fall November 08, 2024 7:35 pm Reason for Visit Admit Date End stage renal disease July 13 5:48pm [...] chronic disease August 29 1:06pm 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 [...] WOUND August 20, 2024 1:5 9pm [facility] August 27, 2024 4: 00am WOUND August 27, 2024 8:23 am WOUND August 27, 2024 9:27 am RE-ADMISSION EXAM September 05, 2024 5:4 0pm LABWORK September 10, 2024 5:0 0am LABWORK September 12, 2024 5:0 0am [facility] September 17, 2024 4 :00am LABWORK September 24, 2024 5:00am WOUND September 24, 2024 9:58am WOUND September 24, 2024 11:01a m LABWORK October 02, 2024 5:00a m Remove hola/Amp 08/29/2024 October 03, 2 025 8:55am [facility] October 08, 2024 4:0 0am [facility] October 16, 2024 5:0 0am 2 WK FU October 17, 2024 10:05 am [facility] October 22, 2024 5:0 0am [facility] October 29, 2024 4:0 0am [...] chronic disease August 29 1:06pm Atherosclerosis of [place] artery of righ t leg with gangrene [...] WOUND August 20, 2024 1:5 9pm [facility] August 27, 2024 4: 00am WOUND August 27, 2024 8:23 am WOUND August 27, 2024 9:27 am RE-ADMISSION EXAM September 05, 2024 5:4 0pm LABWORK September 10, 2024 5:0 0am LABWORK September 12, 2024 5:0 0am [facility] September 17, 2024 4 :00am LABWORK September 24, 2024 5:00am WOUND September 24, 2024 9:58am WOUND September 24, 2024 11:01a m LABWORK October 02, 2024 5:00a m Remove hola/Amp 08/29/2024 October 03, 2 025 8:55am [facility] October 08, 2024 4:0 0am [facility] October 16, 2024 5:0 0am MONTHLY EXAM October 16, 2024 5:30p m 2 WK FU October 17, 2024 10:05 am [facility] October 22, 2024 5:0 0am [facility] October 29, 2024 4:0 0am [...] WOUND August 20, 2024 1:5 9pm [facility] August 27, 2024 4: 00am WOUND August 27, 2024 8:23 am WOUND August 27, 2024 9:27 am RE-ADMISSION EXAM September 05, 2024 5:4 0pm LABWORK September 10, 2024 5:0 0am LABWORK September 12, 2024 5:0 0am [facility] September 17, 2024 4 :00am LABWORK September 24, 2024 5:00am WOUND September 24, 2024 9:58am WOUND September 24, 2024 11:01a m LABWORK October 02, 2024 5:00a m Remove hola/Amp 08/29/2024 October 03, 2 025 8:55am [facility] October 08, 2024 4:0 0am [facility] October 16, 2024 5:0 0am MONTHLY EXAM October 16, 2024 5:30p m 2 WK FU October 17, 2024 10:05 am [facility] October 22, 2024 5:0 0am [facility] October 29, 2024 4:0 0am 1 Y FU October 29, 2024 9:45a m MONTHLY EXAM November 02, 2024 5:00 pm LABWORK November 05, 2024 5:00 am fall November 08, 2024 7:35 pm [facility] November 12, 2024 5: 00am bradycardia November 22, 2024 8:44a m Chief Complaint Admit Date RE-ADMISSION EXAM September 05, 2024 5:4 0pm LABWORK September 10, 2024 5:0 0am LABWORK September 12, 2024 5:0 0am [facility] September 17, 2024 4 :00am LABWORK September 24, 2024 5:00am WOUND September 24, 2024 9:58am WOUND September 24, 2024 11:01a m LABWORK October 02, 2024 5:00a m Remove hola/Amp 08/29/2024 October 03, 2 025 8:55am [facility] October 08, 2024 4:0 0am [facility] October 16, 2024 5:0 0am MONTHLY EXAM October 16, 2024 5:30p m 2 WK FU October 17, 2024 10:05 am [facility] October 22, 2024 5:0 0am [facility] October 29, 2024 4:0 0am 1 Y FU October 29, 2024 9:45a m MONTHLY EXAM November 02, 2024 5:00 pm LABWORK November 05, 2024 5:00 am fall November 08, 2024 7:35 pm [facility] November 12, 2024 5: 00am bradycardia November 22, 2024 8:44a m NEW ENROLEE December 26, 2024 9:3 4am Reason for Visit Admit Date 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 August 29, 2024 1:06pm End stage renal disease August 29, 2024 1:06pm Anemia of chronic disease August 29 1:06pm Atherosclerosis of [place] artery of righ t leg with gangrene [...] Sinus bradycardia October 29, 2024 9:45a m 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 December 26, 2024 9:34am Paroxysmal atrial fibrillation December 9:34am Presence of leadless cardiac pacemaker A ugust 2024 9:34am Sinus bradycardia December 26, 2024 9:3 4am Chief Complaint Admit Date RE-ADMISSION EXAM September 05, 2024 5:4 0pm LABWORK September 10, 2024 5:0 0am LABWORK September 12, 2024 5:0 0am [facility] September 17, 2024 4 :00am LABWORK September 24, 2024 5:00am WOUND September 24, 2024 9:58am WOUND September 24, 2024 11:01a m LABWORK October 02, 2024 5:00a m Remove hola/Amp 08/29/2024 October 03, 2 025 8:55am [facility] October 08, 2024 4:0 0am [facility] October 16, 2024 5:0 0am MONTHLY EXAM October 16, 2024 5:30p m 2 WK FU October 17, 2024 10:05 am [facility] October 22, 2024 5:0 0am [facility] October 29, 2024 4:0 0am 1 Y FU October 29, 2024 9:45a m MONTHLY EXAM November 02, 2024 5:00 pm LABWORK November 05, 2024 5:00 am fall November 08, 2024 7:35 pm [facility] November 12, 2024 5: 00am bradycardia November 22, 2024 8:44a m Re-admission exam November 30, 2024 5:02 pm [facility] December 12, 2024 5: 00am [facility] December 19, 2024 5: 00am Pacer Check Remote December 26, 2024 9:0 0am NEW ENROLEE December 26, 2024 9:3 4am Chief Complaint Admit Date RE-ADMISSION EXAM September 05, 2024 5:4 0pm LABWORK September 10, 2024 5:0 0am LABWORK September 12, 2024 5:0 0am [facility] September 17, 2024 4 :00am LABWORK September 24, 2024 5:00am WOUND September 24, 2024 9:58am WOUND September 24, 2024 11:01a m LABWORK October 02, 2024 5:00a m Remove hola/Amp 08/29/2024 October 03, 2 025 8:55am [facility] October 08, 2024 4:0 0am [facility] October 16, 2024 5:0 0am MONTHLY EXAM October 16, 2024 5:30p m 2 WK FU October 17, 2024 10:05 am [facility] October 22, 2024 5:0 0am [facility] October 29, 2024 4:0 0am 1 Y FU October 29, 2024 9:45a m MONTHLY EXAM November 02, 2024 5:00 pm LABWORK November 05, 2024 5:00 am fall November 08, 2024 7:35 pm [facility] November 12, 2024 5: 00am bradycardia November 22, 2024 8:44a m Re-admission exam November 30, 2024 5:02 pm [facility] December 12, 2024 5: 00am [facility] December 19, 2024 5: 00am New Concern December 20, 2024 3:01 pm Pacer Check Remote December 26, 2024 9:0 0am NEW ENROLEE December 26, 2024 9:3 4am Reason for Visit Admit Date Amputation of right lower extremity belo w [...] Sinus bradycardia October 29, 2024 9:45a m 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 December 26, 2024 9:34am Paroxysmal atrial fibrillation December 9:34am Presence of leadless cardiac pacemaker A ugust 2024 9:34am Sinus bradycardia December 26, 2024 9:3 4am Chief Complaint Admit Date LABWORK September 24, 2024 5:00am WOUND September 24, 2024 9:58am WOUND September 24, 2024 11:01a m LABWORK October 02, 2024 5:00a m Remove hola/Amp 08/29/2024 October 03, 2 025 8:55am [facility] October 08, 2024 4:0 0am [facility] October 16, 2024 5:0 0am MONTHLY EXAM October 16, 2024 5:30p m 2 WK FU October 17, 2024 10:05 am [facility] October 22, 2024 5:0 0am [facility] October 29, 2024 4:0 0am 1 Y FU October 29, 2024 9:45a m MONTHLY EXAM November 02, 2024 5:00 pm LABWORK November 05, 2024 5:00 am fall November 08, 2024 7:35 pm [facility] November 12, 2024 5: 00am bradycardia November 22, 2024 8:44a m Re-admission exam November 30, 2024 5:02 pm [facility] December 12, 2024 5: 00am [facility] December 19, 2024 5: 00am New Concern December 20, 2024 3:01 pm FOLLOW UP December 21, 2024 5:5 2pm [facility] December 24, 2024 5 :00am Pacer Check Remote December 26, 2024 9:0 0am NEW ENROLEE December 26, 2024 9:3 4am Chief Complaint Admit Date LABWORK October 02, 2024 5:00a m Remove hola/Amp 08/29/2024 October 03, 2 025 8:55am [facility] October 08, 2024 4:0 0am [facility] October 16, 2024 5:0 0am MONTHLY EXAM October 16, 2024 5:30p m 2 WK FU October 17, 2024 10:05 am [facility] October 22, 2024 5:0 0am [facility] October 29, 2024 4:0 0am 1 Y FU October 29, 2024 9:45a m MONTHLY EXAM November 02, 2024 5:00 pm LABWORK November 05, 2024 5:00 am fall November 08, 2024 7:35 pm [facility] November 12, 2024 5: 00am bradycardia November 22, 2024 8:44a m Re-admission exam November 30, 2024 5:02 pm [facility] December 12, 2024 5: 00am [facility] December 19, 2024 5: 00am New Concern December 20, 2024 3:01 pm FOLLOW UP December 21, 2024 5:5 2pm [facility] December 24, 2024 5 :00am Pacer Check Remote December 26, 2024 9:0 0am NEW ENROLEE December 26, 2024 9:3 4am fell and rt hip pain. 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 December 26, 2024 9:34am Paroxysmal atrial fibrillation December 9:34am Presence of leadless cardiac pacemaker A ugust 2024 9:34am Sinus bradycardia December 26, 2024 9:3 4am Closed hip fracture January 25, 2025 5:56pm Closed right hip fracture January 25, 2025 5:56pm Current use of fci anticoagulation January 25, 2025 5:56pm End stage renal disease January 25, 2 025 5:56pm Fall January 25, 2025 5:56pm Family History Relationship Condition Age at Onset Recorded Date/T laila mother Hypertension Unknown father Diabetes mellitus Unknown Chronic obstructive pulmonary disease Unk nown Advance Directives Documents on File Type Date Recorded Patient Director Product Management Expl anation Advance Directive(s) 07/03/2024 11:50 AM Date Activated Date Inactivated Comments 11/23/2024 5:43 AM 11/28/2024 2:55 PM Question Answer Comments Full Code Order Discussed With: Patient Advance Directive Response Recorded Date/ Time Advance Directives on File No November 06, 2021 9:22am Name of Medical Power of Rent And Housing Investigator Arian Thompson November 06, 2021 9:22am Advance Directives Yes November 06 9:22am Living Will Yes November 06, 2021 9:22am Power of Rent And Housing Investigator Yes November 06 9:22am Advance Directive Response Recorded Date/ Time Living Will Yes July 02, 2 025 2:52pm Do you have a Healthcare Pow er of Rent And Housing Investigator? Yes July 02, 2024 2:52pm Name of Medical Power of Rent And Housing Investigator RADHA GATES July 02, 2024 2:52pm Living Will Yes July 03, 2 025 3:50pm Do you have a Healthcare Pow er of Rent And Housing Investigator? Yes July 03, 2024 3:50pm Name of Medical Power of Rent And Housing Investigator jacinda gates July 03, 2024 3:50pm Living Will Yes July 07, 2 025 7:28pm Do you have a Healthcare Pow er of Rent And Housing Investigator? Yes July 07, 2024 7:28pm Name of Medical Power of Rent And Housing Investigator maurice gates- daughter July 07, 2024 7:28pm Living Will Yes July 13, 2 025 7:33pm Do you have a Healthcare Pow er of Rent And Housing Investigator? Yes July 13, 2024 7:33pm Name of Medical Power of Rent And Housing Investigator Jacinda Jeremy avila July 13, 2024 7:33pm Living Will Yes August 28, 2024 8:57am Do you have a Healthcare Pow er of Rent And Housing Investigator? Yes August 28, 2024 8:57am Name of Medical Power of Rent And Housing Investigator ARDHA GATES August 28, 2024 8:57am Living Will No June 04 2:32pm Do you have a Healthcare Pow er of Rent And Housing Investigator? No June 04, 2024 2:32pm Living Will Yes August 01, 2024 1:12pm Do you have a Healthcare Pow er of Rent And Housing Investigator? Yes August 01, 2024 1:12pm Name of Medical Power of Rent And Housing Investigator Jacinda Gates - seble August 01, 2024 1:12pm Advance Directives Yes April 11:29am Advance Directive Response Recorded Date/ Time Living Will Yes July 02, 025 2:52pm Do you have a Healthcare Pow er of Rent And Housing Investigator? Yes July 02, 2024 2:52pm Name of Medical Power of Rent And Housing Investigator RADHA GATES July 02, 2024 2:52pm Living Will Yes July 03 025 3:50pm Do you have a Healthcare Pow er of Rent And Housing Investigator? Yes July 03, 2024 3:50pm Name of Medical Power of Rent And Housing Investigator jacinda gates July 03, 2024 3:50pm Living Will Yes July 07 025 7:28pm Do you have a Healthcare Pow er of Rent And Housing Investigator? Yes July 07, 2024 7:28pm Name of Medical Power of Rent And Housing Investigator maurice gates- francisco July 07, 2024 7:28pm Living Will Yes July 13 025 7:33pm Do you have a Healthcare Pow er of Rent And Housing Investigator? Yes July 13, 2024 7:33pm Name of Medical Power of Rent And Housing Investigator Jacinda Ortizjorge k July 13, 2024 7:33pm Living Will Yes August 28, 2024 8:57am Do you have a Healthcare Pow er of Rent And Housing Investigator? Yes August 28, 2024 8:57am Name of Medical Power of Rent And Housing Investigator RADHA GATES August 28, 2024 8:57am Living Will Yes August 01, 2024 1:12pm Do you have a Healthcare Pow er of Rent And Housing Investigator? Yes August 01, 2024 1:12pm Name of Medical Power of Rent And Housing Investigator Jacinda Gates - seble August 01, 2024 1:12pm Advance Directives Yes April 11:29am Advance Directive Response Recorded Date/ Time Living Will Yes November 06, 2021 9:22am Do you have a Healthcare Pow er of Rent And Housing Investigator? Yes November 06, 2021 9:22am Living Will Yes July 13 025 7:33pm Do you have a Healthcare Pow er of Rent And Housing Investigator? Yes July 13, 2024 7:33pm Name of Medical Power of Rent And Housing Investigator Jacinda Ortizjorge k July 13, 2024 7:33pm Living Will Yes August 28, 2024 8:57am Do you have a Healthcare Pow er of Rent And Housing Investigator? Yes August 28, 2024 8:57am Name of Medical Power of Rent And Housing Investigator RADHA GATES August 28, 2024 8:57am Do you have a Healthcare Pow er of Rent And Housing Investigator? No November 08, 2024 7:39pm Living Will Yes August 01, 2024 1:12pm Do you have a Healthcare Pow er of Rent And Housing Investigator? Yes August 01, 2024 1:12pm Name of Medical Power of Rent And Housing Investigator Jacinda Gilbert - seble August 01, 2024 1:12pm Advance Directives Yes April 11:29am Advance Directive Response Recorded Date/ Time Living Will Yes November 06, 2021 9:22am Do you have a Healthcare Pow er of Rent And Housing Investigator? Yes November 06, 2021 9:22am Living Will Yes August 28, 2024 8:57am Do you have a Healthcare Pow er of Rent And Housing Investigator? Yes August 28, 2024 8:57am Name of Medical Power of Rent And Housing Investigator RADHA GATES August 28, 2024 8:57am Do you have a Healthcare Pow er of Rent And Housing Investigator? No November 08, 2024 7:39pm Do you have a Healthcare Pow er of Rent And Housing Investigator? Yes November 22, 2024 12:42pm Living Will Yes August 01, 2024 1:12pm Do you have a Healthcare Pow er of Rent And Housing Investigator? Yes August 01, 2024 1:12pm Name of Medical Power of Rent And Housing Investigator Jacinda Gates - seble August 01, 2024 1:12pm Advance Directives Yes April 11:29am Advance Directive Response Recorded Date/ Time Living Will Yes November 06, 2021 9:22am Do you have a Healthcare Power of Rent And Housing Investigator? Yes November 06, 2021 9:22am Living Will Yes August 28, 2024 8:57am Do you have a Healthcare Power of Rent And Housing Investigator? Yes August 28, 2024 8:57am Name of Medical Power of Rent And Housing Investigator RADHA GATES August 28, 2024 8:57am Do you have a Healthcare Power of Rent And Housing Investigator? No November 08, 2024 7:39pm Do you have a Healthcare Power of Rent And Housing Investigator? Yes November 22, 2024 12:42pm Advance Directives Yes April 11:29am Advance Directive Response Recorded Date/ Time Living Will Yes November 06, 2021 9:22am Do you have a Healthcare Power of Rent And Housing Investigator? Yes November 06, 2021 9:22am Do you have a Healthcare Power of Rent And Housing Investigator? No November 08, 2024 7:39pm Do you have a Healthcare Power of Rent And Housing Investigator? Yes November 22, 2024 12:42pm Advance Directives Yes April 11:29am Advance Directive Response Recorded Date/ Time Living Will Yes November 06, 2021 9:22am Do you have a Healthcare Power of Rent And Housing Investigator? Yes November 06, 2021 9:22am Do you have a Healthcare Power of Rent And Housing Investigator? No November 08, 2024 7:39pm Do you have a Healthcare Power of Rent And Housing Investigator? Yes November 22, 2024 12:42pm Do you have a Healthcare Power of Rent And Housing Investigator? Yes January 25, 2025 4:27pm Advance Directives Yes April 11:29am Reason for Referral Specialty Diagnoses / Procedures Referred By Tay aguilar Referred To Contact Diagnoses 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 edema, without long-term current use of insulin ([facility]) Lauren Arzola APRN.NURSING STAFFING COORDINATOR [address] [place] [address] Referral ID Status Reason Start Date Expiration Date V isits Requested Visits Authorized [id number] Pending Review 1 1 Referral ID Status Reason Start Date Expiration Date Visits Re quested Visits Authorized [id number] Closed 1 1 Specialty Diagnoses / Procedures Referred By Tay aguilar Referred To Contact Diagnoses 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, without long-term current use of insulin ([facility]) Lauren Arzola APRN.NURSING STAFFING COORDINATOR [address] [place] [address] Referral ID Status Reason Start Date Expiration Date V isits Requested Visits Authorized [id number] Authorized 1 1 Summary Purpose Additional Source Comments Source Comments (unrecognize d section and content) In the event this informatio n is protected by the Federal Confidentiality of Alcohol and Drug Abuse Patient Records regulations: The Federal rules restrict any use of the information to criminally investigate or prosecute any alcohol or drug abuse patient.[facility] the event this information is protected by the Federal Confidentiality of Alcohol and Drug Abuse Patient Records regulations: The Federal rules restrict any use of the information to criminally investigate or prosecute any alcohol or drug abuse patient.[facility]In the event this information is protected by the Federal Confidentiality of Alcohol and Drug Abuse Patient Records regulations: The Federal rules restrict any use of the information to criminally investigate or prosecute any alcohol or drug abuse patient.[facility]In the event this information is protected by the Federal Confidentiality of Alcohol and Drug Abuse Patient Records regulations: The Federal rules restrict any use of the information to criminally investigate or prosecute any alcohol or drug abuse patient.[facility]In the event this information is protected by the Federal Confidentiality of Alcohol and Drug Abuse Patient Records regulations: The Federal rules restrict any use of the information to criminally investigate or prosecute any alcohol or drug abuse patient.[facility] HospitalIn the event this information is protected by the Federal Confidentiality of Alcohol and Drug Abuse Patient Records regulations: The Federal rules restrict any use of the information to criminally investigate or prosecute any alcohol or drug abuse patient.[facility] HospitalIn the event this information is protected by the Federal Confidentiality of Alcohol and Drug Abuse Patient Records regulations: The Federal rules restrict any use of the information to criminally investigate or prosecute any alcohol or drug abuse patient.[facility]In the event this information is protected by the Federal Confidentiality of Alcohol and Drug Abuse Patient Records regulations: The Federal rules restrict any use of the information to criminally investigate or prosecute any alcohol or drug abuse patient.[facility] HospitalIn the event this information is protected by the Federal Confidentiality of Alcohol and Drug Abuse Patient Records regulations: The Federal rules restrict any use of the information to criminally investigate or prosecute any alcohol or drug abuse patient.[facility] HospitalIn the event this information is protected by the Federal Confidentiality of Alcohol and Drug Abuse Patient Records regulations: The Federal rules restrict any use of the information to criminally investigate or prosecute any alcohol or drug abuse patient.[facility] HospitalIn the event this information is protected by the Federal Confidentiality of Alcohol and Drug Abuse Patient Records regulations: The Federal rules restrict any use of the information to criminally investigate or prosecute any alcohol or drug abuse patient.[facility] HospitalIn the event this information is protected by the Federal Confidentiality of Alcohol and Drug Abuse Patient Records regulations: The Federal rules restrict any use of the information to criminally investigate or prosecute any alcohol or drug abuse patient.[facility] HospitalIn the event this information is protected by the Federal Confidentiality of Alcohol and Drug Abuse Patient Records regulations: The Federal rules restrict any use of the information to criminally investigate or prosecute any alcohol or drug abuse patient.[facility] HospitalIn the event this information is protected by the Federal Confidentiality of Alcohol and Drug Abuse Patient Records regulations: The Federal rules restrict any use of the information to criminally investigate or prosecute any alcohol or drug abuse patient.[facility] HospitalIn the event this information is protected by the Federal Confidentiality of Alcohol and Drug Abuse Patient Records regulations: The Federal rules restrict any use of the information to criminally investigate or prosecute any alcohol or drug abuse patient.[facility] HospitalIn the event this information is protected by the Federal Confidentiality of Alcohol and Drug Abuse Patient Records regulations: The Federal rules restrict any use of the information to criminally investigate or prosecute any alcohol or drug abuse patient.[facility] HospitalIn the event this information is protected by the Federal Confidentiality of Alcohol and Drug Abuse Patient Records regulations: The Federal rules restrict any use of the information to criminally investigate or prosecute any alcohol or drug abuse patient.[facility] HospitalIn the event this information is protected by the Federal Confidentiality of Alcohol and Drug Abuse Patient Records regulations: The Federal rules restrict any use of the information to criminally investigate or prosecute any alcohol or drug abuse patient.[facility] HospitalIn the event this information is protected by the Federal Confidentiality of Alcohol and Drug Abuse Patient Records regulations: The Federal rules restrict any use of the information to criminally investigate or prosecute any alcohol or drug abuse patient.[facility]In the event this information is protected by the Federal Confidentiality of Alcohol and Drug Abuse Patient Records regulations: The Federal rules restrict any use of the information to criminally investigate or prosecute any alcohol or drug abuse patient.[facility] HospitalIn the event this information is protected by the Federal Confidentiality of Alcohol and Drug Abuse Patient Records regulations: The Federal rules restrict any use of the information to criminally investigate or prosecute any alcohol or drug abuse patient.[facility] HospitalIn the event this information is protected by the Federal Confidentiality of Alcohol and Drug Abuse Patient Records regulations: The Federal rules restrict any use of the information to criminally investigate or prosecute any alcohol or drug abuse patient.[facility] HospitalIn the event this information is protected by the Federal Confidentiality of Alcohol and Drug Abuse Patient Records regulations: The Federal rules restrict any use of the information to criminally investigate or prosecute any alcohol or drug abuse patient.[facility] HospitalIn the event this information is protected by the Federal Confidentiality of Alcohol and Drug Abuse Patient Records regulations: The Federal rules restrict any use of the information to criminally investigate or prosecute any alcohol or drug abuse patient.[facility] HospitalIn the event this information is protected by the Federal Confidentiality of Alcohol and Drug Abuse Patient Records regulations: The Federal rules restrict any use of the information to criminally investigate or prosecute any alcohol or drug abuse patient.[facility] HospitalIn the event this information is protected by the Federal Confidentiality of Alcohol and Drug Abuse Patient Records regulations: The Federal rules restrict any use of the information to criminally investigate or prosecute any alcohol or drug abuse patient.[facility] the event this information is protected by the Federal Confidentiality of Alcohol and Drug Abuse Patient Records regulations: The Federal rules restrict any use of the information to criminally investigate or prosecute any alcohol or drug abuse patient.[facility] HospitalIn the event this information is protected by the Federal Confidentiality of Alcohol and Drug Abuse Patient Records regulations: The Federal rules restrict any use of the information to criminally investigate or prosecute any alcohol or drug abuse patient.[facility] HospitalIn the event this information is protected by the Federal Confidentiality of Alcohol and Drug Abuse Patient Records regulations: The Federal rules restrict any use of the information to criminally investigate or prosecute any alcohol or drug abuse patient.[facility] HospitalIn the event this information is protected by the Federal Confidentiality of Alcohol and Drug Abuse Patient Records regulations: The Federal rules restrict any use of the information to criminally investigate or prosecute any alcohol or drug abuse patient.[facility] HospitalIn the event this information is protected by the Federal Confidentiality of Alcohol and Drug Abuse Patient Records regulations: The Federal rules restrict any use of the information to criminally investigate or prosecute any alcohol or drug abuse patient.[facility] HospitalIn the event this information is protected by the Federal Confidentiality of Alcohol and Drug Abuse Patient Records regulations: The Federal rules restrict any use of the information to criminally investigate or prosecute any alcohol or drug abuse patient.[facility] HospitalIn the event this information is protected by the Federal Confidentiality of Alcohol and Drug Abuse Patient Records regulations: The Federal rules restrict any use of the information to criminally investigate or prosecute any alcohol or drug abuse patient.[facility] HospitalIn the event this information is protected by the Federal Confidentiality of Alcohol and Drug Abuse Patient Records regulations: The Federal rules restrict any use of the information to criminally investigate or prosecute any alcohol or drug abuse patient.[facility] HospitalIn the event this information is protected by the Federal Confidentiality of Alcohol and Drug Abuse Patient Records regulations: The Federal rules restrict any use of the information to criminally investigate or prosecute any alcohol or drug abuse patient.[facility] HospitalIn the event this information is protected by the Federal Confidentiality of Alcohol and Drug Abuse Patient Records regulations: The Federal rules restrict any use of the information to criminally investigate or prosecute any alcohol or drug abuse patient.[facility] HospitalIn the event this information is protected by the Federal Confidentiality of Alcohol and Drug Abuse Patient Records regulations: The Federal rules restrict any use of the information to criminally investigate or prosecute any alcohol or drug abuse patient.[facility] HospitalIn the event this information is protected by the Federal Confidentiality of Alcohol and Drug Abuse Patient Records regulations: The Federal rules restrict any use of the information to criminally investigate or prosecute any alcohol or drug abuse patient.[facility] Reason for Visit (unrecogniz ed section [...] Authorization Reason Comments Medication Problem Reason Comments [facility] requesting recor ds Reason Comments Established Patient Follow Up Diabetic Foot Care Reason Onset Date Comments Refill Request 07/12/2023 Reason Onset Date Comments Refill Request 07/28/2023 Reason Comments Medication Problem Freestyle toribio 14 d ay sensor kit - patient's sensor reader is a toribio 2 and the sensors ordered by our [...] End: July 13, 2024 Meredith Guevara NP, PRODUCT LEAD-C Attending Provider Active Start: July 13, 2024 [...] Active Start: July 18, 2024 Dr. Jayla Osuan MD Admit Provider Active Star t: July 18, 2024 Dr. Jayla Osuna MD Other Provider Active Star t: July 18, 2024 Dr. Juan Antonio Holden MD Other Provider Active Sta rt: July 18, 2024 Dr. Randal Shore MD Other Provider Active Start: July 18, 2024 Dr. Manuel Alva MD Other Provider Active Start: July 18, 2024 Dr. Josef aGrcia DPM Other Provider Active St art: July [...] 2024 End: July 31, 2024 Meredith Guevara PRODUCT LEAD, PRODUCT LEAD-C Attending Provider Active Start: July 31, 2024 End: July 31, 2024 Team Status: Inactive Member Role Status Dates Dr. Nando Wiggins MD Primary Care Provider Active Start: August 01, 2024 End: August 01, 2024 Meredith Guevara PRODUCT LEAD, PRODUCT LEAD-C Attending Provider Active Start: August 01, 2024 [...] Provider Active Start: August 29, 2024 Dr. aErl White MD Admit Provider Active Start : [...] 2024 End: September 05, 2024 Meredith Guevara PRODUCT LEAD, PRODUCT LEAD-C Attending Provider Active Start: September 05, 2024 [...] 2024 End: October 29, 2024 Pooja Ruano PRODUCT LEAD, PRODUCT LEAD-C Attending Provider Active Start: October 29, 2024 [...] 2024 End: July 02, 2024 Meredith Guevara PRODUCT LEAD, PRODUCT LEAD-C Attending Provider Active Start: July 02, 2024 [...] 2024 End: July 10, 2024 Meredith Guevara PRODUCT LEAD, PRODUCT LEAD-C Attending Provider Active Start: July 10, 2024 [...] Attending Provider Active Start: October 08, 2024 Salsa Dance Instructor Relationship Specialty Start Date End Date Husam Yan MD [address] [place], [place] [id number] PCP - General Family Practice 10/14/16 Salsa Dance Instructor Relationship Specialty Start Date End Date Husam Yan MD [address] [place], [place] [id number] PCP - General Family Practice 10/14/16 Salsa Dance Instructor Relationship Specialty Start Date End Date Husam Yan MD [address] [place] [address] PCP - General Family Practice 10/14/16 Salsa Dance Instructor Relationship Specialty Start Date End Date Husam Yan MD [address] [place] [address] PCP - General Family Practice 10/14/16 Salsa Dance Instructor Relationship Specialty Start Date End Date Husam Yan MD [address] [place] [address] PCP - General Family Medicine 10/14/16 Salsa Dance Instructor Relationship Specialty Start Date End Date Husam Yan MD [address] [place] [address] PCP - General Family Medicine 10/14/16 Salsa Dance Instructor Relationship Specialty Start Date End Date Husam Yan MD [address] [place] [address] PCP - General Family Medicine 10/14/16 Salsa Dance Instructor Relationship Specialty Start Date End Date Husam Yan MD [address] [place] [address] PCP - General Family Medicine 10/14/16 Salsa Dance Instructor Relationship Specialty Start Date End Date Husam Yan MD [address] [place] [address] PCP - General Family Medicine 10/14/16 Salsa Dance Instructor Relationship Specialty Start Date End Date Husam Yan MD [address] [place] [address] PCP - General Family Medicine 10/14/16 Salsa Dance Instructor Relationship Specialty Start Date End Date Husam Yan MD [address] [place] [address] PCP - General Family Medicine 10/14/16 Salsa Dance Instructor Relationship Specialty Start Date End Date Husam Yan MD [address] [place] [address] PCP - General Family Medicine 10/14/16 Salsa Dance Instructor Relationship Specialty Start Date End Date Husam Yan MD [address] [place] [address] PCP - General Family Medicine 10/14/16 Salsa Dance Instructor Relationship Specialty Start Date End Date Husam Yan MD [address] [place] [address] PCP - General Family Medicine 10/14/16 Salsa Dance Instructor Relationship Specialty Start Date End Date Husam Yan MD [address] [place] [address] PCP - General Family Medicine 10/14/16 Salsa Dance Instructor Relationship Specialty Start Date End Date Husam Yan MD [address] [place] [address] PCP - General Family Medicine 10/14/16 Salsa Dance Instructor Relationship Specialty Start Date End Date Husam Yan MD [address] [place] [address] PCP - General Family Medicine 10/14/16 Salsa Dance Instructor Relationship Specialty Start Date End Date Husam Yan MD [address] [place] [address] PCP - General Family Medicine 10/14/16 Salsa Dance Instructor Relationship Specialty Start Date End Date Husam Yan MD [address] [place] [address] PCP - General Family Medicine 10/14/16 Salsa Dance Instructor Relationship Specialty Start Date End Date Husam Yan MD [address] [place] [address] PCP - General Family Medicine 10/14/16 Salsa Dance Instructor Relationship Specialty Start Date End Date Husam Yan MD [address] [place] [address] PCP - General Family Medicine 10/14/16 Salsa Dance Instructor Relationship Specialty Start Date End Date Husam Yan MD [address] [place] [address] PCP - General Family Medicine 10/14/16 Salsa Dance Instructor Relationship Specialty Start Date End Date Husam Yan MD [address] [place] [address] PCP - General Family Medicine 10/14/16 Salsa Dance Instructor Relationship Specialty Start Date End Date Husam Yan MD [address] [place] [address] PCP - General Family Medicine 10/14/16 Salsa Dance Instructor Relationship Specialty Start Date End Date Husam Yan MD [address] [place] [address] PCP - General Family Medicine 10/14/16 PodlogarLauren APRN.NURSING STAFFING COORDINATOR [address] [place] [address] [employer] Base [employer]ocker Family Medicine 04/28/24 Salsa Dance Instructor Relationship Specialty Start Date End Date Husam Yan MD [address] [place] [address] PCP - General Family Medicine 10/14/16 PodlogarLauren APRN.NURSING STAFFING COORDINATOR [address] [place] [address] [employer]ocker Family Medicine 04/28/24 Salsa Dance Instructor Relationship Specialty Start Date End Date Husam Yan MD [address] [place] [address] PCP - General Family Medicine 10/14/16 Lauren Arzola APRN.NURSING STAFFING COORDINATOR [address] [place] [address] [employer]ocker Family Medicine 04/28/24 Team Status: Inactive Member [...] 2024 End: June 06, 2024 Meredith Guevara PRODUCT LEAD, PRODUCT LEAD-C Attending Provider Active Start: June 06, 2024 [...] 2024 End: July 31, 2024 Meredith Guevara PRODUCT LEAD, PRODUCT LEAD-C Attending Provider Active Start: July 31, 2024 End: July 31, 2024 Team Status: Inactive Member Role/Relationship Status Dates Dr. Nando Wiggins MD Primary Care Provider Active Start: August 01, 2024 End: August 01, 2024 Meredith Guevara PRODUCT LEAD, PRODUCT LEAD-C Attending Provider Active Start: August 01, 2024 [...] End: September 05, 2024 Meredith Guevara NP, PRODUCT LEAD-C Attending Provider Active Start: September 05, 2024 [...] 2024 End: October 29, 2024 Pooja Ruano NP, PRODUCT LEAD-C Attending Provider Active Start: October 29, 2024 [...] 22, 2024 End: November 23, 2024 Dr. Earl Genao DO Emergency Provider Active Start: November 22, [...] Active Member Role/Relationship Status Dates Dr. Nando Wiggisn MD Primary Care Provider Active Start: August [...] Start : September 01, 2024 Dr. Randal Damioc MD Other Provider Active Star t: September [...] End: September 05, 2024 Meredith Guevara NP, PRODUCT LEAD-C Attending Provider Active Start: September 05, 2024 [...] 2024 End: October 29, 2024 Pooja Ruano PRODUCT LEAD, PRODUCT LEAD-C Attending Provider Active Start: October 29, 2024 [...] 22, 2024 End: November 23, 2024 Dr. Earl Genao DO Attending Provider Active Start: November 22, 2024 End: November 23, 2024 Dr. Earl Genao DO Emergency Provider Active Start: November 22, 2024 End: November 23, 2024 Team Status: Inactive Member Role/Relationship Status Dates Dr. Nando Wiggins MD Primary Care Provider Active Start: November 02, 2024 End: November 02, 2024 Meredith Guevara PRODUCT LEAD, PRODUCT LEAD-C Attending Provider Active Start: November 02, 2024 [...] 22, 2024 End: November 23, 2024 Dr. Earl Genao DO Attending Provider Active Start: November 22, 2024 End: November 23, 2024 Dr. 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 Dance Instructor Relationship Specialty Start Date End Date Husam Yan MD [address] [place], [place] [address] PCP - General Family Medicine 10/14/16 Lauren Arzola APRN.NURSING STAFFING COORDINATOR [address] [place], [place] [address] Metal Base Blocker Family Medicine 04/28/24 Yesenia Yi APRN.NURSING STAFFING COORDINATOR [address] [place], [place] [address] [employer] Base [employer]ocker Family Medicine 11/01/24 Team Status: Active Member Role/Relationship Status Dates [...] Other Provider Active Start: September 01, 2024 KIRSTOFER Hernández Attending Provider Active Star t: September [...] End: September 05, 2024 Meredith Guevara NP, PRODUCT LEAD-C Attending Provider Active Start: September 05, 2024 [...] 2024 End: October 29, 2024 Pooja Ruano PRODUCT LEAD, PRODUCT LEAD-C Attending Provider Active Start: October 29, 2024 End: October 29, 2024 Dr. Nando Wiggins MD Primary Care Provider Active Start: October 29, 2024 End: October 29, 2024 Team Status: Inactive Member Role/Relationship Status Dates Dr. Nando Wiggins MD Primary Care Provider Active Start: November 02, 2024 End: November 02, 2024 Meredith Guevara PRODUCT LEAD, PRODUCT LEAD-C Attending Provider Active Start: November 02, 2024 [...] 22, 2024 End: November 23, 2024 Dr. Earl Genao DO Attending Provider Active Start: November 22, 2024 End: November 23, 2024 Dr. Earl Genao DO Emergency Provider Active Start: November 22, 2024 End: November 23, 2024 Team Status: Active Member Role/Relationship Status Dates Dr. Nando Wiggins MD Primary Care Provider Active Start: December 12, 2024 Nando SHERWOOD MD Attending Provider Active Start: December 12, 2024 Team Status: Active Member Role/Relationship Status Dates Dr. Nando Wiggins MD Primary Care Provider Active Start: December 19, 2024 Nando SHERWOOD MD Attending Provider Active Start: December 19, 2024 Team Status: Active Member Role/Relationship Status Dates Dr. Nando Wiggins MD Primary Care Provider Active Start: December 24, 2024 Nando SHERWOOD MD Attending Provider Active Start: December 24, 2024 Team Status: Inactive Member Role/Relationship Status Dates Dr. Nando Wiggins MD Primary Care Provider Active Start: December 26, 2024 End: December 26, 2024 Dr. Nando Wiggins MD Referring Provider Active Start: December 26, 2024 End: December 26, 2024 Grecia Duran Attending Provider Active Start: Kavon 2024 End: December 26, 2024 Team Status: Inactive Member Role/Relationship Status [...] 2024 End: September 05, 2024 Meredith Guevara PRODUCT LEAD, PRODUCT LEAD-C Attending Provider Active Start: September 05, 2024 [...] 2024 End: October 29, 2024 Pooja Ruano PRODUCT LEAD, PRODUCT LEAD-C Attending Provider Active Start: October 29, 2024 End: October 29, 2024 Dr. Nando Wiggins MD Primary Care Provider Active Start: October 29, 2024 End: October 29, 2024 Team Status: Inactive Member Role/Relationship Status Dates Dr. Nando Wiggins MD Primary Care Provider Active Start: November 02, 2024 End: November 02, 2024 Meredith Guevara PRODUCT LEAD, PRODUCT LEAD-C Attending Provider Active Start: November 02, 2024 [...] 22, 2024 End: November 23, 2024 Dr. Earl Genao DO Attending Provider Active Start: November 22, 2024 End: November 23, 2024 Dr. Earl Genao DO Emergency Provider Active Start: November 22, 2024 End: November 23, 2024 Team Status: Inactive Member Role/Relationship Status Dates Dr. Nando Wiggins MD Primary Care Provider Active Start: November 30, 2024 End: November 30, 2024 Meredith Guevara PRODUCT LEAD, PRODUCT LEAD-C Attending Provider Active Start: November 30, 2024 End: November 30, 2024 Team Status: Active Member Role/Relationship Status Dates Dr. Nando Wiggins MD Primary Care Provider Active Start: December 12, 2024 Nando SHERWOOD MD Attending Provider Active Start: December 12, 2024 Team Status: Active Member Role/Relationship Status Dates Dr. Nando Wiggins MD Primary Care Provider Active Start: December 19, 2024 Nando SHERWOOD MD Attending Provider Active Start: December 19, 2024 Team Status: Active Member Role/Relationship Status Dates Dr. Nando Wiggins MD Primary Care Provider Active Start: December 24, 2024 Nando SHERWOOD MD Attending Provider Active Start: December 24, 2024 Team Status: Active Member Role/Relationship Status Dates Dr. Nando Wiggins MD Primary Care Provider Active Start: December 26, 2024 Dr. Laron Bacon MD Attending Provider Active S tart: December 26, 2024 Team Status: Inactive Member Role/Relationship Status Dates Dr. Nando Wiggins MD Primary Care Provider Active Start: December 26, 2024 End: December 26, 2024 Dr. Nando Wiggins MD Referring Provider Active Start: December 26, 2024 End: December 26, 2024 Grecia Duran Attending Provider Active Start: A 2024 End: December 26, 2024 Team Status: Inactive Member Role/Relationship Status Dates Dr. Nando Wiggins MD Primary Care Provider Active Start: December 20, 2024 End: December 20, 2024 Meredith Guevara PRODUCT LEAD, PRODUCT LEAD-C Attending Provider Active Start: December 20, 2024 End: December 20, 2024 Team Status: Active Member Role/Relationship Status Dates Dr. Nando Wiggins MD Primary Care Provider Active Start: December 24, 2024 Nando SHERWOOD MD Attending Provider Active Start: December 24, 2024 Team Status: Active Member Role/Relationship Status Dates Dr. Nando Wiggins MD Primary Care Provider Active Start: December 26, 2024 Dr. Laron Bacon MD Attending Provider Active S tart: December 26, 2024 Team Status: Inactive Member Role/Relationship Status Dates Dr. Nando Wiggins MD Primary Care Provider Active Start: December 26, 2024 End: December 26, 2024 Dr. Nando Wiggins MD Referring Provider Active Start: December 26, 2024 End: December 26, 2024 Grecia Duran Attending Provider Active Start: Kavon 2024 End: December 26, 2024 Team Status: Inactive Member Role/Relationship Status Dates Dr. Nando Wiggins MD Primary Care Provider Active Start: September 05, 2024 End: September 05, 2024 Meredith Guevara PRODUCT LEAD, PRODUCT LEAD-C Attending Provider Active Start: September 05, 2024 End: September 05, 2024 Team Status: Active Member Role/Relationship Status Dates Dr. Nando iWggins MD Primary [...] 2024 End: October 29, 2024 Pooja Ruano PRODUCT LEAD, PRODUCT LEAD-C Attending Provider Active Start: October 29, 2024 End: October 29, 2024 Dr. Nando Wiggins MD Primary Care Provider Active Start: October 29, 2024 End: October 29, 2024 Team Status: Inactive Member Role/Relationship Status Dates Dr. Nando Wiggins MD Primary Care Provider Active Start: November 02, 2024 End: November 02, 2024 Meredith Guevara PRODUCT LEAD, PRODUCT LEAD-C Attending Provider Active Start: November 02, 2024 [...] 22, 2024 End: November 23, 2024 Dr. Earl Genao DO Attending Provider Active Start: November 22, 2024 End: November 23, 2024 Dr. Earl Genao DO Emergency Provider Active Start: November 22, 2024 End: November 23, 2024 Team Status: Inactive Member Role/Relationship Status Dates Dr. Nando Wiggins MD Primary Care Provider Active Start: November 30, 2024 End: November 30, 2024 Meredith Guevara NP PRODUCT LEAD-C Attending Provider Active Start: November 30, 2024 End: November 30, 2024 Team Status: Active Member Role/Relationship Status Dates Dr. Nando Wiggins MD Primary Care Provider Active Start: December 12, 2024 Nando SHERWOOD MD Attending Provider Active Start: December 12, 2024 Team Status: Active Member Role/Relationship Status Dates Dr. Nando Wiggins MD Primary Care Provider Active Start: December 19, 2024 Nando SHERWOOD MD Attending Provider Active Start: December 19, 2024 Team Status: Inactive Member Role/Relationship Status Dates Dr. Nando Wiggins MD Primary Care Provider Active Start: December 20, 2024 End: December 20, 2024 Meredith Guevara NP PRODUCT LEAD-C Attending Provider Active Start: December 20, 2024 End: December 20, 2024 Team Status: Active Member Role/Relationship Status Dates Dr. Nando Wiggins MD Primary Care Provider Active Start: December 24, 2024 Nando SHERWOOD MD Attending Provider Active Start: December 24, 2024 Team Status: Inactive Member Role/Relationship Status Dates Dr. Nando Wiggins MD Primary Care Provider Active Start: December 26, 2024 End: December 26, 2024 Dr. Laron Bacon MD Attending Provider Active S tart: December 26, 2024 End: December 26, 2024 Team Status: Inactive Member Role/Relationship Status Dates Dr. Nando Wiggins MD Primary Care Provider Active Start: December 26, 2024 End: December 26, 2024 Dr. Nando Wiggins MD Referring Provider Active Start: December 26, 2024 End: December 26, 2024 Grecia Duran Attending Provider Active Start: A 2024 End: December 26, 2024 Team Status: Inactive Member Role/Relationship Status [...] 2024 End: October 29, 2024 Pooja Ruano PRODUCT LEAD, PRODUCT LEAD-C Attending Provider Active Start: October 29, 2024 End: October 29, 2024 Dr. Nando Wiggins MD Primary Care Provider Active Start: October 29, 2024 End: October 29, 2024 Team Status: Inactive Member Role/Relationship Status Dates Dr. Nando Wiggins MD Primary Care Provider Active Start: November 02, 2024 End: November 02, 2024 Meredith Guevara PRODUCT LEAD, PRODUCT LEAD-C Attending Provider Active Start: November 02, 2024 [...] 22, 2024 End: November 23, 2024 Dr. Earl Genao DO Attending Provider Active Start: November 22, 2024 End: November 23, 2024 Dr. Earl Genao DO Emergency Provider Active Start: November 22, 2024 End: November 23, 2024 Team Status: Inactive Member Role/Relationship Status Dates Dr. Nando Wiggins MD Primary Care Provider Active Start: November 30, 2024 End: November 30, 2024 Meredith Guevara PRODUCT LEAD, PRODUCT LEAD-C Attending Provider Active Start: November 30, 2024 End: November 30, 2024 Team Status: Active Member Role/Relationship Status Dates Dr. Nando Wiggins MD Primary Care Provider Active Start: December 12, 2024 Nando SHERWOOD MD Attending Provider Active Start: December 12, 2024 Team Status: Active Member Role/Relationship Status Dates Dr. Nando Wiggins MD Primary Care Provider Active Start: December 19, 2024 Nando SHERWOOD MD Attending Provider Active Start: December 19, 2024 Team Status: Inactive Member Role/Relationship Status Dates Dr. Nando Wiggins MD Primary Care Provider Active Start: December 20, 2024 End: December 20, 2024 Meredith Guevara PRODUCT LEAD, PRODUCT LEAD-C Attending Provider Active Start: December 20, 2024 End: December 20, 2024 Team Status: Inactive Member Role/Relationship Status Dates Dr. Nando Wiggins MD Primary Care Provider Active Start: December 21, 2024 End: December 21, 2024 Meredith Guevara PRODUCT LEAD, PRODUCT LEAD-C Attending Provider Active Start: December 21, 2024 End: December 21, 2024 Team Status: Active Member Role/Relationship Status Dates Dr. Nando Wiggins MD Primary Care Provider Active Start: December 24, 2024 Nando SHERWOOD MD Attending Provider Active Start: December 24, 2024 Team Status: Inactive Member Role/Relationship Status Dates Dr. Nando Wiggins MD Primary Care Provider Active Start: December 26, 2024 End: December 26, 2024 Dr. Laron Bacon MD Attending Provider Active S tart: December 26, 2024 End: December 26, 2024 Team Status: Inactive Member Role/Relationship Status Dates Dr. Nando Wiggins MD Primary Care Provider Active Start: December 26, 2024 End: December 26, 2024 Dr. Nando Wiggins MD Referring Provider Active Start: December 26, 2024 End: December 26, 2024 Grecia Duran Attending Provider Active Start: 2024 End: December 26, 2024 Team Status: Inactive Member Role/Relationship Status [...] 2024 End: October 29, 2024 Pooja Ruano PRODUCT LEAD, PRODUCT LEAD-C Attending Provider Active Start: October 29, 2024 End: October 29, 2024 Dr. Nando Wiggins MD Primary Care Provider Active Start: October 29, 2024 End: October 29, 2024 Team Status: Inactive Member Role/Relationship Status Dates Dr. Nando Wiggins MD Primary Care Provider Active Start: November 02, 2024 End: November 02, 2024 Meredith Guevara PRODUCT LEAD, PRODUCT LEAD-C Attending Provider Active Start: November 02, 2024 [...] 22, 2024 End: November 23, 2024 Dr. Earl Genao DO Attending Provider Active Start: November 22, 2024 End: November 23, 2024 Dr. Earl Genao , Emergency Provider Active Start: November 22, 2024 End: November 23, 2024 Team Status: Inactive Member Role/Relationship Status Dates Dr. Nando Wiggins MD Primary Care Provider Active Start: November 30, 2024 End: November 30, 2024 Meredith Guevara PRODUCT LEAD, PRODUCT LEAD-C Attending Provider Active Start: November 30, 2024 End: November 30, 2024 Team Status: Active Member Role/Relationship Status Dates Dr. Nando Wiggins MD Primary Care Provider Active Start: December 12, 2024 Nando SHERWOOD MD Attending Provider Active Start: December 12, 2024 Team Status: Active Member Role/Relationship Status Dates Dr. Nando Wiggins MD Primary Care Provider Active Start: December 19, 2024 Nando SHERWOOD MD Attending Provider Active Start: December 19, 2024 Team Status: Inactive Member Role/Relationship Status Dates Dr. Nando Wiggins MD Primary Care Provider Active Start: December 20, 2024 End: December 20, 2024 Meredith Guevara PRODUCT LEAD, PRODUCT LEAD-C Attending Provider Active Start: December 20, 2024 End: December 20, 2024 Team Status: Inactive Member Role/Relationship Status Dates Dr. Nando Wiggins MD Primary Care Provider Active Start: December 21, 2024 End: December 21, 2024 Meredith Guevara PRODUCT LEAD, PRODUCT LEAD-C Attending Provider Active Start: December 21, 2024 End: December 21, 2024 Team Status: Active Member Role/Relationship Status Dates Dr. Nando Wiggins MD Primary Care Provider Active Start: December 24, 2024 Nando SHERWOOD MD Attending Provider Active Start: December 24, 2024 Team Status: Inactive Member Role/Relationship Status Dates Dr. Nando Wiggins MD Primary Care Provider Active Start: December 26, 2024 End: December 26, 2024 Dr. Laron Bacon MD Attending Provider Active S tart: December 26, 2024 End: December 26, 2024 Team Status: Inactive Member Role/Relationship Status Dates Dr. Nando Wiggins MD Primary Care Provider Active Start: December 26, 2024 End: December 26, 2024 Dr. Laron Bacon MD Attending Provider Active S tart: December 26, 2024 End: December 26, 2024 Dr. Laron Bacon MD Referring Provider Active S tart: December 26, 2024 End: December 26, 2024 Team Status: Active Member Role/Relationship Status Dates Dr. Nando Wiggins MD Primary Care Provider Active Start: January 23, 2025 Nando SHERWOOD MD Attending Provider Active Start: January 23, 2025 Team Status: Active Member Role/Relationship Status Dates Dr. Nando Wiggins MD Primary Care Provider Active Start: January 25, 2025 Beau Dunlap MD Emergency Provider Active Star t: January 25, 2025 Hakan Gunter MD Attending Provider Active St art: January 25, 2025 Team Status: Active Member Role/Relationship Status Dates Dr. Nando Wiggins MD Primary Care Provider Active Start: January 25, 2025 Beau Dunlap MD Emergency Provider Active Star t: January 25, 2025 Dr. Jayla Osuna MD Admit Provider Active Star t: January 25, 2025 Dr. Jayla Osuna MD Attending Provider Active Start: January 25, 2025 Goals (unrecognized section and content) Goals may be documented in a n alternate section No data available for this sectionGoals may be documented in an alternate sectionGoals may be documented in an alternate sectionGoals may be documented in an alternate section (unrecognized sect ion and content) No Status Records FoundNo Status Records FoundNo Status Records Found INFORMATION SOURCE (unrecogn ized section and content) DATE CREATED AUTHOR 09/16/2023 [facility] DATE CREATED AUTHOR AUTHOR'S ORGANIZ ATION 12/28/2024 [facility] DATE CREATED AUTHOR AUTHOR'S ORGANIZ ATION 01/24/2025 [facility] FOR RECORDS PERTAINING TO PATIENTS WHO ARE [...] BE BASED ON THE PRIMARY CLINICAL RECORDS. [facility]. provides no warranty or guarantee of the accuracy or completeness of information in this document.
[2025-01-25] MEDS: Senna/Docusate Sodium 1 Tablet 2 TABLET PO (21:13)
[2025-01-25 21:25] VITALS: BP 147/69; PULSE 86; RESP 17; TEMP 36.6; O2SAT 94
[2025-01-25 21:34] VITALS: PULSE 86
[2025-01-26] VITALS (32 sets, daily range): BP systolic 77–137; BP diastolic 41–73; PULSE 59–84; RESP 13–18; TEMP 35.9–36.6; O2SAT 92–100; BMI 31.1; BMI 30.4; BMI 30.5
[2025-01-26 07:27] LABS: Hematocrit 28.0 % (40-54); Hemoglobin 9.1 g/dL (13.0-16.5); Immature Granulocytes Count 0.050 X10^3/uL (0.0-0.0); Mean Corp Hgb Conc 32.5 g/dL (32-36); Mean Corpuscular Volume 94.9 fL (80-94); Mean Platelet Vol. 11.9 fl (6.2-12.0); NRBC Flagged by Analyzer 0 % (0-5); Platelet Count 163 K/mm3 (150-450); RBC Distribution Width CV 15.3 % (11.6-14.6); RBC Distribution Width SD 52.7 fl (35.1-43.9); Red Blood Count 2.95 M/mm3 (4.6-6.2); White Blood Count 10.3 K/mm3 (4.4-11.0)
[2025-01-26 07:42] LABS: Anion Gap 14 (5-15); BUN 56 mg/dL (4-19); BUN/Creat Ratio 9.9 RATIO (10-20); Calcium,Total 8.9 mg/dL (7.6-11.0); Carbon Dioxide 25.7 mmol/L (21.0-32.0); Chloride 95 mmol/L (98-108); Estimated Creatinine Clearance 10.84 ml/min (50-250); Glucose 150 mg/dL (70-99); Potassium 5.0 mmol/L (3.3-5.1)
--- NOTE | 2025-01-26 08:46 | PCM.PRE.AN2 ---
ASA Classification* ASA Classification ASA Classification: 4 and E Assessment & Plan Anesthesia* Anesthesia Assessment Anesthesia Assessment: Discussed sedation and/or anesthesia options, risks, benefits, and alternatives with patient/parents/legal guardian/POA. Questions invited. The patient/parents/legal guardian/POA seems to understand and agrees to proceed with anesthesia plan. Reviewed the physical assessment, medical history, allergy history and patient home medications list prior to surgery/procedure/anesthetic and documented any changes. Performed airway and anesthesia risk assessments. Anesthesia Type Anesthesia Type: General Anesthesia Focused Assessment* Temperature: 97.8 F Pulse Rate: 65 Blood Pressure: 137/64 Respiratory Rate: 17 Pulse Ox: 98 Oxygen Flow Rate (L/min): 3 Airway Assessment Mouth opens: >3 cm Mallampati Score: II Labs Anesthesia Preop lab: CBC WBC 10.3 K/mm3 (4.4-11.0) 01/26/25 06:01/26/25 RBC 2.95 M/mm3 (4.6-6.2) L 01/26/25 06:01/26/25 Hgb 9.1 g/dL (13.0-16.5) L 01/26/25 06:01/26/25 Hct 28.0 % (40-54) L 01/26/25 06:01/26/25 Plt Count 163 K/mm3 (150-450) 01/26/25 06:28 01/26/25 CHEMISTRY Potassium 5.0 mmol/L (3.3-5.1) 01/26/25 06:01/26/25 Sodium 134 mmol/L (133-145) 01/26/25 06:01/26/25 Magnesium 2.6 mg/dL (1.5-2.2) H 11/22/24 08:47 11/22/24 BUN 56 mg/dL (4-19) H 01/26/25 06:01/26/25 Creatinine 5.65 mg/dL (0.70-1.20) H 01/26/25 06:01/26/25 Glucose 150 mg/dL (70-99) H 01/26/25 06:01/26/25 POC Glucose 153 mg/dL (74-106) H 01/26/25 06:29 01/26/25 TSH 1.080 uIU/mL (0.358-3.740) 05/15/24 05:05 05/15/24 COAG PT 16.5 SECONDS (11.7-14.9) H 11/22/24 08:47 11/22/24 Pre-Assessment Diagnosis/Proposed Procedure Planned Operative Procedure(s): Gamma Nailing Right Hip Fracture Anesthesia History Anesthesia History - photoengraving proofer: Anesthesia History - photoengraving proofer Hx Hospitalization Yes 09/24/24 11:04 Any Problems With Anesthesia Yes: nausea 01/25/25 20:21 Cholinesterase deficiency No 01/25/25 20:21 You/Your Family Experience No 01/25/25 20:21 fever (hyperthermia) with Relationship Recent Exposure to Contagious No 01/25/25 20:21 Disease Does patient have nerve No 01/25/25 20:21 stimulator Patient instructed to have No 01/25/25 20:21 device shut off --Does patient have Pacemaker or ICD? When Was Last Pacemaker Check QUESTION #4 FULL TEXT: You/Your Family Experience fever (hyperthermia) with Anesthesia Last Oral Intake Last Oral intake: Last Oral Intake NPO since Meds taken in AM with sips of water? Meds patient instructed to take am of surgery PONV PONV - photoengraving proofer: PONV - photoengraving proofer Female HX of Motion Sickness HX of N/V After Surgery Non-Smoker Duration of Surgery greater than 60 minutes Number of Risk Factors PONV Score Height & Weight Height & Weight: Anesthesia: Height & Weight Height 5 ft 10 in 01/25/25 18:57 Weight: 98.6 kg 01/26/25 06:30 Body Mass Index (BMI) 31.1 01/26/25 06:30 Respiratory Assessment Respiratory Assessment - photoengraving proofer: Respiratory Tract Infection Hx - photoengraving proofer Hx Respiratory Tract Infection No 01/25/25 20:21 STOP Sleep Apnea STOP Sleep Apnea - photoengraving proofer: STOP Sleep Apnea - photoengraving proofer Hx Hypertension No 01/25/25 18:43 Hx Sleep Apnea No 01/25/25 18:43 CPAP No 01/25/25 18:43 BIPAP No 01/25/25 18:43 Do you snore loudly (louder No 01/25/25 18:43 than talking or can be heard Do you often feel tired/ No 01/25/25 18:43 fatigued/ sleepy during daytime? Has anyone observed you stop No 01/25/25 18:43 breathing during sleep? STOP Results Negative 01/25/25 18:43 QUESTION #5 FULL TEXT : Do you snore loudly (louder than talking or can be heard through closed doors)? Tobacco Use History Tobacco Use History - photoengraving proofer: Tobacco Use History - photoengraving proofer Tobacco Use Non-smoker 09/26/20 11:23 Smoking Status Never smoker 01/25/25 18:43 Hx Tobacco Use No 01/25/25 18:43 Years Smoking Packs Smoked per Day Smoking Cessation Date was within the last 15 years Hx Smoking Cessation Date Hx Smoking Cessation Counseling Hematologic Medial History Hematologic Hx - photoengraving proofer: Hematologic Medical Hx - medical assistant cardiology Hx of Blood Transfusion Yes 01/25/25 18:43 Hx of Transfusion in last 3 No 01/25/25 18:43 Months Date of Last Transfusion (if within last 3 months) Ever experience any problems No 01/25/25 18:43 with transfusion(s)? Specify any problems Hx of Preganancy in last 3 N/A 01/25/25 18:43 Months Nurse Filling Out Transfusion NMARTY 01/25/25 18:43 & Questions: Date: 01/25/25 01/25/25 18:43 Time: 18:55 01/25/25 18:43 Patient unable to answer at this time (ie. confused, unrespo /Reproduction History /Reproductive History - photoengraving proofer: /Reproductive Hx- photoengraving proofer Hx Now No 01/25/25 20:21 Gestational Age (in weeks): EDC: Hx Hx Para Hx Section SAB No 01/25/25 20:21 Active Medications Active Medications: Current Medications Generic Name Dose Route Start Last Admin Trade Name Freq PRN Reason Stop Dose Admin Acetaminophen 1,000 mg 01/25/25 22:00 01/26/25 06:32 Acetaminophen 500 Mg Tablet PO 1,000 mg Q8 CIRO Administration Albuterol Sulfate 2.5 mg 01/25/25 18:49 Albuterol 2.5 Mg/3 Ml Vial.Neb. INHALATION Q2H PRN PRN SOB &/OR WHEEZING Calcium Acetate 667 mg 01/26/25 08:00 Calcium Acetate 667 Mg Capsule PO TIDCM CIRO Cholecalciferol 125 mcg 01/26/25 10:00 Cholecalciferol (Vit D3) 125 Mcg Capsule (5,000 Units) PO DAILY [facility] Fentanyl Citrate 50 mcg 01/25/25 18:49 Fentanyl 100 Mcg/2 Ml Ampul IV Q2H PRN PRN Pain 6-10 Glucagon 1 mg 01/25/25 18:49 Glucagon 1 Mg/Ml Syringe IM X1 PRN HYPOGLYCEMIA Protocol Hemodialysis Solution 6 bag 01/26/25 07:45 Pureflow B 2k Dialysis Soln 1 Bag PF 01/26/25 19:33 UD CIRO Protocol Dextrose 250 mls @ 0 mls/hr 01/25/25 18:49 Dextrose 10%-Water IV .Q0M PRN HYPOGLYCEMIA Protocol As Directed Sodium Chloride 250 mls @ 15 mls/hr 01/25/25 19:36 IV .[id number] PRN Saline Flush Sodium Chloride 250 mls @ 15 mls/hr 01/25/25 19:36 IV .[id number] PRN Additional IVPB Infusion Insulin Human Lispro 0 unit 01/25/25 22:00 01/26/25 06:32 Insulin Lispro 100 Unit/Ml Insuln.Pen SC Not Given ACHS [facility] Protocol Melatonin 10 mg 01/25/25 18:49 Melatonin 10 Mg Tablet PO QHS PRN PRN INSOMNIA Ondansetron HCl 4 mg 01/25/25 18:49 Ondansetron 4 Mg/2 Ml Vial IV Q8H PRN PRN NAUSEA/VOMITING Oxycodone HCl 5 mg 01/25/25 18:49 01/26/25 02:16 Oxycodone 5 Mg Tablet PO 5 mg Q4H PRN PRN Administration prn pain 4-10 Senna/Docusate Sodium 2 tablet 01/25/25 22:00 01/25/25 21:13 Senna/Docusate Sodium 1 Tablet PO 2 tablet BID CIRO Administration Sodium Chloride 10 - 40 ml 01/25/25 19:36 0.9% Saline Lock 10 Ml Syringe IV UD PRN SALINE FLUSH Sodium Chloride 1,000 ml 01/26/25 07:30 0.9% Normal Saline 1,000 Ml Iv.Soln. OPERA.SITE 01/26/25 19:27 X1 CIRO Sodium Chloride 200 ml 01/26/25 07:27 0.9% Normal Saline 1,000 Ml Iv.Soln. 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 Wound, open, foot End stage renal disease MRSA (methicillin resistant staph aureus) culture positive Cutaneous abscess of right foot Diabetic infection of right foot Acute hyperkalemia Open wound Lives in long-term Dietary restriction History of stress test History of echocardiogram Cardiology follow-up encounter History of atrial fibrillation Insulin dependent diabetes mellitus Other specified peripheral vascular diseases Type 2 diabetes mellitus with diabetic polyneuropathy Atherosclerosis of [place] artery of extremity with ulceration ESRD (end stage renal disease) Type 2 diabetes mellitus with foot ulcer Diabetes mellitus with diabetic 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 Pre-op testing Loose, teeth Wears glasses Cancer Dialysis patient Kidney disease Non-smoker Edema Syncope Chronic diastolic (congestive) heart failure (04/18/20) Paroxysmal atrial fibrillation Sinus bradycardia Type 2 diabetes mellitus Hyperkalemia Swelling of both lower extremities HLD (hyperlipidemia) Left bundle-branch block 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 Abnormal electrocardiogram Home Medications ?Medication ?Instructions ?Recorded ?Last Taken ?Type aspirin 81 mg tablet,delayed 81 mg PO DAILY heart health 07/01/20 08/28/24 History release (Adult Aspirin Regimen) torsemide 100 mg tablet 100 mg PO MOWEFR water pill 04/14/24 08/27/24 History sennosides 8.6 mg-docusate sodium 1 tab-cap PO BID PRN PRN 06/04/24 06/05/24 History 50 mg tablet (Stimulant Laxative Constipation Plus) cholecalciferol (vitamin D3) 125 125 mcg PO DAILY SUPPLEMENT 07/13/24 08/28/24 History mcg (5,000 unit) capsule benzocaine 15 mg-menthol 3.6 mg 2 mariaa mucous membrane Q2H PRN PRN 07/20/24 Unknown Rx lozenges (Sore Throat (benzocaine sore throat #0 ea with menthol)) apixaban 2.5 mg tablet (Eliquis) 2.5 mg PO BID #180 tabs 10/30/24 Unknown Rx acetaminophen 500 mg capsule 1,000 mg PO Q8H PRN PRN fever or 11/22/24 Unknown History pain calcium acetate(phosphat bind) 667 667 mg PO TID 01/25/25 Unknown History mg capsule dulaglutide 0.75 mg/0.5 mL 1.5 mg subcut .Qtuesday 01/25/25 Unknown History subcutaneous pen injector (Trulicity) insulin glargine 100 unit/mL (3 14 unit subcut DAILY diabetes 01/25/25 Unknown History mL) subcutaneous pen vitamin B complex-vitamin C-folic 1 tab PO DAILY 01/25/25 Unknown History acid 400 mcg tablet Allergy/AdvReac Type Severity Reaction Status Date / Time pioglitazone (From Actos) Allergy fatigue Verified 11/22/24 08:49 simvastatin (From Zocor) Allergy myalgia Verified 11/22/24 08:49 sitagliptin (From Januvia) Allergy unknown Verified 11/22/24 08:49 Family History Mother Hypertension Father Diabetes COPD (chronic obstructive pulmonary disease) Surgical History Hx of amputation History of incision and drainage Hx of foot surgery History of cataract extraction History of ligation of vein History of arteriovenostomy for renal dialysis History of inguinal hernia repair History of appendectomy Social History housing: long-term current occupational status: retired Smoking Status: Never smoker alcohol intake: never substance use type: does not use caffeine: Yes Type: coffee Number of servings: 1 what type of physical activity do you participate in: none seatbelt use: always do you feel safe at home: Yes Review of Systems (Anesthesia) ROS Narrative System reviewed and no additional complaints, except as documented.
--- NOTE | 2025-01-26 11:03 | PN_ITS ---
Subjective Subjective Patient seen and examined with his nurse by his bedside. He was admitted with a complaint of mechanical fall and resultant right hip fracture. He admits to pain in the hip, rating it at 10/10. Vitals are stable. He is on room air. Objective Data Objective Data Vital Signs: Vital Signs Temp Pulse Resp BP Pulse Ox O2 Del Method O2 Flow Rate 97.7 F L 60 13 111/57 L 96 Room Air 3 01/26/25 10:10 01/26/25 10:45 01/26/25 10:10 01/26/25 10:45 01/26/25 10:10 01/26/25 10:10 01/26/25 09:53 Oxygen Flow Rate (L/min) 3 Oxygen Delivery Method Room Air Weight: 217 lb 6.012 oz Body Mass Index (BMI) 31.1 Intake & Output: Intake and Output for Last 24 Hours 01/24/25 01/25/25 01/26/25 23:59 23:59 23:59 Intake Total 0 / 200 200 / 200 Output Total Balance 0 / 200 175 / 175 Lab / Micro Data 01/26/25 06:28 01/26/25 06:28 Labs: Laboratory Results - last 24 hr 01/25/25 15:28: Sodium 136, Potassium 4.4, Chloride 97 L, Carbon Dioxide 27.0, Anion Gap 13, BUN 47 H, Creatinine 5.11 H, Estim Creat Clear Calc 12.02 L, Est GFR (MDRD) Non-Af 10 L, BUN/Creatinine Ratio 9.3 L, Glucose 213 H, Calcium 8.9 01/25/25 16:35: WBC 6.8, RBC 3.16 L, Hgb 9.9 L, Hct 29.9 L, MCV 94.6 H, MCH 31.3, MCHC 33.1, RDW Std Deviation 54.0 H, RDW Coeff of Frances 15.5 H, Plt Count 164, MPV 10.6, Immature Gran % (Auto) 0.400, Neut % (Auto) 68.9, Lymph % (Auto) 18.0 L, Charles % (Auto) 9.6, Eos % (Auto) 2.4, Baso % (Auto) 0.7, Absolute Neuts (auto) 4.7, Absolute Lymphs (auto) 1.22, Nucleated RBC % 0, Blood Type A POSITIVE, Antibody Screen NEGATIVE 01/25/25 21:17: POC Glucose 179 H 01/26/25 06:28: WBC 10.3, RBC 2.95 L, Hgb 9.1 L, Hct 28.0 L, MCV 94.9 H, MCH 30.8, MCHC 32.5, RDW Std Deviation 52.7 H, RDW Coeff of Frances 15.3 H, Plt Count 163, MPV 11.9, Immature Gran % (Auto) 0.500, Neut % (Auto) 71.1 H, Lymph % (Auto) 15.9 L, Charles % (Auto) 10.8 H, Eos % (Auto) 1.1, Baso % (Auto) 0.6, Absolute Neuts (auto) 7.3, Absolute Lymphs (auto) 1.64, Nucleated RBC % 0, Sodium 134, Potassium 5.0, Chloride 95 L, Carbon Dioxide 25.7, Anion Gap 14, BUN 56 H, Creatinine 5.65 H, Estim Creat Clear Calc 10.84 L, Est GFR (MDRD) Non-Af 9 L, BUN/Creatinine Ratio 9.9 L, Glucose 150 H, Calcium 8.9 01/26/25 06:29: POC Glucose 153 H Radiography Diagnostic Testing: Radiology Impression Hip/Pelvis X-Ray 01/25/25 15:39 IMPRESSION: Comminuted impacted right intertrochanteric fracture. Reading Location: [facility] Chest X-Ray 01/25/25 15:57 IMPRESSION: Low lung volumes. Congestion. Reading Location: [facility] Knee X-Ray 01/25/25 18:05 IMPRESSION: Surgical changes as above. No acute abnormality. Multilevel degenerative disc disease. Reading Location: [facility] Physical Exam Const alert, oriented x3 and no apparent distress Constitutional Narrative: frail General Appearance: cooperative HEENT normocephalic, head/scalp atraumatic, moist oral mucous membranes and oropharynx normal Eyes PERRL Neck supple Lymph Lymphatic: no lymphedema noted Resp Resp Narrative: diminished breath sounds bibasally, no wheezes or crackles. On room air. Cardio regular rate, regular rhythm, S1 normal heart sound, S2 normal heart sound and no murmurs GI normal to inspection, nondistended, normoactive bowel sounds, soft to palpation and non-tender Extremity normal capillary refill and no clubbing, cyanosis or edema Extremity Narrative: RLE shortened, externally rotated. Skin General Skin Exam: no breakdown Neuro CN's II-XII intact bilaterally Motor Exam: general weakness Psych thought process normal and cooperative Appearance: appropriate Assessment & Plan Assessment/Plan (1) Fall: (2) Closed right hip fracture: PLAN: Plan #Right intertrochanteric fracture due to mechanical fall * right hip xarey showed right intertrochanteric comminuted fracture * orthopedics on board. * for surgery today. * PT/OT On board * PO aspirin and eliquis on hold. * #History of afib: on eliquis, which is on board. #History of PAD: s/p right BKA. aspirin on hold. Resume as soon as ok with orthopedics #Type 2 diabetes mellitus: on ISS. Accuchecks ACHS #ESRD: on HD. On dialysis Saturdays. On torsemide. #History of heart block: s/p pacemaker. #HFpEF: on intake and output. Fluid restriction to 1500cc daily. DVT prophylaxis: SCDs. Resume anticoagulation after surgery once ok with orthopedic surgery. Charges/Coding Visit Charges Inpatient E&M: 96655 Subs Hosp L2
[2025-01-26] MEDS: PureFlow B 2K Dialysis Soln 1 BAG 6 BAG PF (11:32)
[2025-01-26] MEDS: 0.9% Normal Saline 1,000 ML IV.SOLN. 1000 ML OPERA.SITE (11:32)
--- NOTE | 2025-01-26 13:26 | CASEMGMT ---
Noted that the pt is from [facility]. RN CM to the pt's room at this time. Pt is currently getting dialyzed. Pt states that he prefers to return to [facility] @ the time of DC and denies wanting to review a list of other SNF's. [facility] CM to follow.
--- NOTE | 2025-01-26 13:36 | NURSING ---
pt receiving 3.5hrs of dialysis d/t surgery scheduled at 2pm. Dr Ton rojas.
[2025-01-26] MEDS: NORMAL SALINE IV (15:05)
[2025-01-26 15:09] LABS: Anion Gap 11 (5-15); BUN 33 mg/dL (4-19); BUN/Creat Ratio 9.2 RATIO (10-20); Calcium,Total 9.0 mg/dL (7.6-11.0); Carbon Dioxide 26.1 mmol/L (21.0-32.0); Chloride 99 mmol/L (98-108); Estimated Creatinine Clearance 16.71 ml/min (50-250); Glucose 106 mg/dL (70-99); Potassium 4.2 mmol/L (3.3-5.1)
[2025-01-26] MEDS: fentaNYL 100 MCG/2 ML Ampul IV (15:23)
--- NOTE | 2025-01-26 15:30 | RAD_ITS ---
PROCEDURE: FEMUR MIN 2 VIEWS 01/26/2025 REASON FOR EXAM: INTRAMEDULLARY DADA TECHNIQUE: Procedure Code: RADFEM Modality: DX Procedure: FEMUR MIN 2 VIEWS 5 fluoroscopic views. Laterality: Right COMPARISON: Pelvic radiographs January 25, 2025. FINDINGS: Small [id number]-[id number] limited fluoroscopic spot film views of the right proximal femur were obtained. Osseous: There has been internal fixation and reduction of a proximal intertrochanteric right femoral fracture with hardware. Alignment appears near anatomic. No obvious immediate complication is seen. Soft tissues: Soft tissue is not well assessed on these fluoroscopic spot film views. Vascular calcification seen within the right leg. Vascular patency can not be assessed. RAD/Femur Min 2 Views IMPRESSION: Adequate appearing postoperative change of the right proximal femur. Correlation with routine full alkpr-go-[id number] radiographs as clinically appropria te for more complete assessment. Reading Location: [id number]
[2025-01-26] MEDS: Cefazolin 1 GM/5 ML Vial 2 GM IV (15:40)
[2025-01-26] MEDS: TRANEXAMIC ACID 1,000 MG/10 ML ML 2000 MG IV (16:12)
--- NOTE | 2025-01-26 16:14 | PCM.OPRPT ---
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: [employer] Infantryman: Marleen Tasks completed by clinic office assistant: Retracting Type of Anesthesia: General and Local RN Documented Start/Stop Times: Operation Date: 01/26/25 10:30 Case Time Anesthesia Start 01/26/25 15:03 Into Room 01/26/25 15:03 Procedure Start 01/26/25 15:45 Procedure Start Time: 15:45 Procedure Stop Time: 16:15 Select all DRAINS/GRAFTS/IMPLANTS that apply: Implanted device Implanted device details: IM Nail synthes TFN-A intermediate length 125 angle Estimated Blood Loss: 100 Specimen collected: No Description of surgery: Patient brought to the operating room theater. Placed supine on the fracture table. 2 g IV Ancef administered. All bony prominences padded. SCD on the nonoperative leg. Right lower extremity very well-padded at the below-knee amputation stump placed into the traction set up used Coban to place light traction with internal rotation. Lower extremity prepped and draped in the usual sterile fashion with chlorhexidine-based prep solution allowing over 3 minutes drying time prior to draping. Used the [place] shower curtain style drape draped over the opposite side. The opposite leg scissoring position appropriately padded on the medial and lateral aspects using eggcrate and pillow. Preoperative timeout performed from the site patient the surgery. Took AP lateral radiographs to ensure appropriate alignment and positioning the fracture. I then used a stab incision to insert the 3.2 mm partially-threaded guidewire at the tip of the trochanter aiming towards the lesser trochanter and down the center of the femur on the lateral x-ray. He is a soft tissue protector. Used the entry reamer over top of this. Removed the entry reamer and the guidewire. I selected a Synthes TFN?a intermediate length nail 125 degree neck shaft angle with a 235 mm long. Inserted this down to an appropriate depth. I used that in the drop-down guided percutaneous technique to insert guidewire up into the center of the femoral neck and head slightly inferior and posterior to subchondral bone. I measured this to be 110 mm I took off 5 mm reamed to 105 mm then inserted the helical blade 105 mm over top of this down to an appropriate depth. I locked this proximally and backed it off a quarter turn to allow for compression. I then removed the guide wire. I then again used the drop-down guide with the percutaneous drill sleeve drilled over top of that for a 42 mm long and then put in a 5.0 mm fully threaded cortical screw 42 mm long. This achieved good purchase. All the guides were taken off final radiographs taken AP lateral approximately and distally to ensure appropriate screw placement and planned placement as well. The reduction was near-anatomic. Radiographs taken and saved onto the system meticulous hemostasis achieved wounds thoroughly irrigated subcutaneous tissue closed with 2-0 Vicryl suture and 3-0 Monocryl. 10 cc quarter percent bupivacaine instilled in and around the incision sites. Skin cleaned with wet dry dressing followed application of Steri-Strips and dressing. 1g IV TXA at the start and at the end, 2 g total. Patient woken up from a general anesthetic transferred off the operating table taken to postanesthetic care unit. All sponge needle instrument counts were correct no complications plan to the patient is weightbearing as tolerated but they are typically using a Shirley lift and have not ambulated for months apparently. The patient can go back on the blood thinner postoperative day 1 as long as that is okay with the hospitalist service / ok with kidney function and other factors - on apixaban so likely back on that. Spoke with Daughter Hilaria rodrigues. cpt 35761 Surgical Findings: as above Complications Complications: No Admit VTE Documentation VTE Present on Admission: Yes VTE Mechan Device Prophylaxis: SCD's VTE Pharm Prophylaxis ordered?: Yes
--- NOTE | 2025-01-26 16:45 | PCM.POST.ANE ---
Anesthesia: Postop Eval I Current Vital Signs Temperature: 97.7 F Pulse Rate: 70 Blood Pressure: 111/49 Respiratory Rate: 14 Pulse Ox: 97 Oxygen Delivery Method: Nasal Cannula Oxygen Flow Rate (L/min): 2 Assessment Airway patent: Yes Spontaneous unlabored respirations: Yes Mental status: Awake nausea: No Vomiting: No Anesthesia Complication: No Fluid Hydration Crystalloid volume administer (ml): 300 Total IV fluid infused: 300 Progress Note Anesthesia document: Postop Eval 1 completed: Yes
--- NOTE | 2025-01-26 16:47 | PCM.POSTANE2 ---
Anesthesia Postop Eval I Sum Postop Eval Completion status Anesthesia document: Postop Eval 1 completed: Yes Anesthesia Postop Eval I Summary Anesthesia Postop Eval I Summary: Anesthesia Postop Eval I: Assessment Summary Airway patent Yes 01/26/25 16:46 Spontaneous unlabored Yes 01/26/25 16:46 respirations Mental status Awake 01/26/25 16:46 nausea No 01/26/25 16:46 Vomiting No 01/26/25 16:46 Anesthesia Postop Eval I: Fluid Summary Crystalloid volume administer 300 01/26/25 16:46 (ml) Colloids volume administered ( ml) Blood Product volume administered (ml) Total IV fluid infused 300 01/26/25 16:46 Anesthesia Postop Eval I: Summary Notes Anesthesia Complication No 01/26/25 16:46 Anesthesia Complication Comment: Post-operative progress note Anesthesia: Postop Eval II Evaluation Mental status: Awake Pain Level: 3 nausea: No Vomiting: No
[2025-01-26] MEDS: 0.9% Saline Lock 10 ML Syringe IV (18:54)
[2025-01-26] MEDS: Senna/Docusate Sodium 1 Tablet 2 TABLET PO (22:55)
[2025-01-27 04:45] VITALS: BP 106/49; PULSE 59; RESP 18; TEMP 36.6; O2SAT 95
[2025-01-27 04:55] LABS: Hematocrit 27.0 % (40-54); Hemoglobin 8.5 g/dL (13.0-16.5); Immature Granulocytes Count 0.080 X10^3/uL (0.0-0.0); Mean Corp Hgb Conc 31.5 g/dL (32-36); Mean Corpuscular Volume 97.8 fL (80-94); Mean Platelet Vol. 11.8 fl (6.2-12.0); NRBC Flagged by Analyzer 0 % (0-5); Platelet Count 144 K/mm3 (150-450); RBC Distribution Width CV 15.7 % (11.6-14.6); RBC Distribution Width SD 55.6 fl (35.1-43.9); Red Blood Count 2.76 M/mm3 (4.6-6.2); White Blood Count 13.0 K/mm3 (4.4-11.0)
[2025-01-27 05:27] LABS: Anion Gap 15 (5-15); BUN 41 mg/dL (4-19); BUN/Creat Ratio 9.4 RATIO (10-20); Calcium,Total 8.7 mg/dL (7.6-11.0); Carbon Dioxide 23.2 mmol/L (21.0-32.0); Chloride 97 mmol/L (98-108); Estimated Creatinine Clearance 13.94 ml/min (50-250); Glucose 144 mg/dL (70-99); Potassium 5.2 mmol/L (3.3-5.1)
[2025-01-27 06:00] VITALS: BMI 30.4
--- NOTE | 2025-01-27 06:41 | PCM.HOSP.N ---
Hospitalist Note Patient with decreased UOP, will administer low cc/hr volume bolus and reassess.
[2025-01-27] MEDS: 0.9% Normal Saline (1000mL) 1,000 ML 75 ML IV (07:01)
[2025-01-27 07:53] VITALS: BP 93/48; PULSE 72; RESP 16; TEMP 36.6; O2SAT 96
[2025-01-27] MEDS: Cholecalciferol (Vit D3) 125 MCG CAPSULE (5,000 UNITS) PO (09:29)
--- NOTE | 2025-01-27 11:26 | PN.ORTHO_ITS ---
Subjective Subjective POD 1 doing well. mild buttock discomfort. sitting upright. no concerns. Objective Data Objective Data Vital Signs: Vital Signs Temp Pulse Resp BP Pulse Ox O2 Del Method O2 Flow Rate 97.8 F 72 16 93/48 L 96 Room Air 3 01/27/25 07:53 01/27/25 07:53 01/27/25 07:53 01/27/25 07:53 01/27/25 07:53 01/27/25 07:53 01/27/25 07:29 Oxygen Flow Rate (L/min) 3 Oxygen Delivery Method Room Air Weight: 212 lb 8.41 oz Body Mass Index (BMI) 30.4 Intake & Output: Intake and Output for Last 24 Hours 01/25/25 01/26/25 01/27/25 23:59 23:59 23:59 Intake Total 0 / 200 200 / 200 250 / 250 Output Total 1795 / 1795 0 / 0 Balance 0 / 200 -1595 / -1595 250 / 250 Lab / Micro Data 01/27/25 04:22 01/27/25 04:22 Labs: Laboratory Results - last 24 hr 01/26/25 11:59: POC Glucose 130 H 01/26/25 14:40: Sodium 136, Potassium 4.2, Chloride 99, Carbon Dioxide 26.1, Anion Gap 11, BUN 33 H, Creatinine 3.63 H, Estim Creat Clear Calc 16.71 L, Est GFR (MDRD) Non-Af 16 L, BUN/Creatinine Ratio 9.2 L, Glucose 106 H, Calcium 9.0 01/26/25 18:49: POC Glucose 130 H 01/26/25 20:35: POC Glucose 138 H 01/27/25 04:22: WBC 13.0 H, RBC 2.76 L, Hgb 8.5 L, Hct 27.0 L, MCV 97.8 H, MCH 30.8, MCHC 31.5 L, RDW Std Deviation 55.6 H, RDW Coeff of Frances 15.7 H, Plt Count 144 L, MPV 11.8, Immature Gran % (Auto) 0.600, Neut % (Auto) 81.2 H, Lymph % (Auto) 7.9 L, [place] % (Auto) 9.5, Eos % (Auto) 0.3, Baso % (Auto) 0.5, Absolute Neuts (auto) 10.6 H, Absolute Lymphs (auto) 1.03, Nucleated RBC % 0, Sodium 134, Potassium 5.2 H, Chloride 97 L, Carbon Dioxide 23.2, Anion Gap 15, BUN 41 H, C reatinine 4.35 H, Estim Creat Clear Calc 13.94 L, Est GFR (MDRD) Non-Af 12 L, B UN/Creatinine Ratio 9.4 L, Glucose 144 H, Calcium 8.7 01/27/25 04:49: POC Glucose 151 H Radiography Diagnostic Testing: Radiology Impression Femur X-Ray 01/26/25 15:30 IMPRESSION: Adequate appearing postoperative change of the right proximal femur. Correlation with routine full [id number] radiographs as clinically appropriate for more complete assessment. Reading Location: [facility] Physical Exam Const alert, no apparent distress and well nourished General Appearance: cooperative Extremity normal capillary refill Extremity Narrative: stump looks normal, drsg dry intact, thigh soft, no strike through. Assessment & Plan Assessment/Plan (1) Closed right hip fracture: PLAN: POD 1 right hip ORIF. doing well. radha lift. transfers as tolerated. change dressing pod 4/5 . leave steris on 2 weeks. FU 2 weeks in office.
--- NOTE | 2025-01-27 12:10 | PN_ITS ---
Subjective Subjective Patient seen and examined. Is postop day 1 for right hip replacement. His blood pressure has been low and was 93/48 today. He was noted to have decreased urine output overnight also though usually makes very little urine. He was started on IVF overnight. Objective Data Objective Data Vital Signs: Vital Signs Temp Pulse Resp BP Pulse Ox O2 Del Method O2 Flow Rate 97.8 F 72 16 93/48 L 96 Room Air 3 01/27/25 07:53 01/27/25 07:53 01/27/25 07:53 01/27/25 07:53 01/27/25 07:53 01/27/25 07:53 01/27/25 07:29 Oxygen Flow Rate (L/min) 3 Oxygen Delivery Method Room Air Weight: 212 lb 8.41 oz Body Mass Index (BMI) 30.4 Intake & Output: Intake and Output for Last 24 Hours 01/25/25 01/26/25 01/27/25 23:59 23:59 23:59 Intake Total 0 / 200 200 / 200 250 / 250 Output Total 1795 / 1795 0 / 0 Balance 0 / 200 -1595 / -1595 250 / 250 Lab / Micro Data 01/27/25 04:22 01/27/25 04:22 Labs: Laboratory Results - last 24 hr 01/26/25 11:59: POC Glucose 130 H 01/26/25 14:40: Sodium 136, Potassium 4.2, Chloride 99, Carbon Dioxide 26.1, Anion Gap 11, BUN 33 H, Creatinine 3.63 H, Estim Creat Clear Calc 16.71 L, Est GFR (MDRD) Non-Af 16 L, BUN/Creatinine Ratio 9.2 L, Glucose 106 H, Calcium 9.0 01/26/25 18:49: POC Glucose 130 H 01/26/25 20:35: POC Glucose 138 H 01/27/25 04:22: WBC 13.0 H, RBC 2.76 L, Hgb 8.5 L, Hct 27.0 L, MCV 97.8 H, MCH 30.8, MCHC 31.5 L, RDW Std Deviation 55.6 H, RDW Coeff of Frances 15.7 H, Plt Count 144 L, MPV 11.8, Immature Gran % (Auto) 0.600, Neut % (Auto) 81.2 H, Lymph % (Auto) 7.9 L, [place] % (Auto) 9.5, Eos % (Auto) 0.3, Baso % (Auto) 0.5, Absolute Neuts (auto) 10.6 H, Absolute Lymphs (auto) 1.03, Nucleated RBC % 0, Sodium 134, Potassium 5.2 H, Chloride 97 L, Carbon Dioxide 23.2, Anion Gap 15, BUN 41 H, C reatinine 4.35 H, Estim Creat Clear Calc 13.94 L, Est GFR (MDRD) Non-Af 12 L, B UN/Creatinine Ratio 9.4 L, Glucose 144 H, Calcium 8.7 01/27/25 04:49: POC Glucose 151 H Radiography Diagnostic Testing: Radiology Impression Femur X-Ray 01/26/25 15:30 IMPRESSION: Adequate appearing postoperative change of the right proximal femur. Correlation with routine full [id number] radiographs as clinically appropriate for more complete assessment. Reading Location: [facility] Physical Exam Const alert, oriented x3 and no apparent distress Constitutional Narrative: frail General Appearance: cooperative HEENT normocephalic, head/scalp atraumatic, moist oral mucous membranes and oropharynx normal Eyes PERRL Neck supple Lymph Lymphatic: no lymphedema noted Resp Resp Narrative: diminished breath sounds bibasally, no wheezes or crackles. On room air. Cardio regular rate, regular rhythm, S1 normal heart sound, S2 normal heart sound and no murmurs GI normal to inspection, nondistended, normoactive bowel sounds, soft to palpation and non-tender Extremity normal capillary refill and no clubbing, cyanosis or edema Extremity Narrative: intact dressing over right hip. Skin General Skin Exam: no breakdown Neuro CN's II-XII intact bilaterally Motor Exam: general weakness Psych thought process normal and cooperative Appearance: appropriate Assessment & Plan Assessment/Plan (1) Fall: (2) Closed right hip fracture: PLAN: Plan #Right intertrochanteric fracture due to mechanical fall * right hip xray showed right intertrochanteric comminuted fracture * orthopedics on board. * tody is POD 1 for right hip IM nailing * PT/OT On board * PO aspirin and eliquis on hold. * #History of afib: on eliquis, which is on hold. Resume when ok with orthopedics #Hypotension * Patient noted to be hypotensive postop. Blood pressure down in the 90s. He was started on IV fluid 75 cc/h overnight. He also received a dose of midodrine in PACU * Was started on midodrine 10 mg 3 times daily. This is because cannot be aggressive with IV fluid hydration in light of his ESRD on hemodialysis * Hold any BP meds #History of PAD: s/p right BKA. aspirin on hold. Resume as soon as ok with orthopedics #Type 2 diabetes mellitus: on ISS. Accuchecks ACHS #ESRD: on HD. On dialysis Saturdays. On torsemide. Hold torsemide due to hypotension #History of heart block: s/p pacemaker. #HFpEF: on intake and output. Fluid restriction to 1500cc daily. DVT prophylaxis: SCDs.resume eliquis Charges/Coding Visit Charges Inpatient E&M: 99569 Subs Hosp L2
[2025-01-27 13:20] VITALS: BP 110/46; PULSE 70; RESP 16; TEMP 36.9; O2SAT 97
[2025-01-27] MEDS: APIXABAN 2.5 MG TABLET (WCH) PO ×2 (13:34→21:51)
[2025-01-27 21:40] VITALS: BP 128/44; PULSE 68; RESP 18; TEMP 36.4; O2SAT 92
[2025-01-27] MEDS: Senna/Docusate Sodium 1 Tablet 2 TABLET PO (21:50)
[2025-01-28] VITALS (20 sets, daily range): BP systolic 110–147; BP diastolic 47–96; PULSE 58–67; RESP 14–18; TEMP 36.4–37.4; O2SAT 90–99; BMI 30.7; BMI 29.3
[2025-01-28 07:25] LABS: Hematocrit 22.4 % (40-54); Hemoglobin 7.3 g/dL (13.0-16.5); Immature Granulocytes Count 0.050 X10^3/uL (0.0-0.0); Mean Corp Hgb Conc 32.6 g/dL (32-36); Mean Corpuscular Volume 95.7 fL (80-94); Mean Platelet Vol. 11.4 fl (6.2-12.0); NRBC Flagged by Analyzer 0 % (0-5); Platelet Count 135 K/mm3 (150-450); RBC Distribution Width CV 15.4 % (11.6-14.6); RBC Distribution Width SD 53.7 fl (35.1-43.9); Red Blood Count 2.34 M/mm3 (4.6-6.2); White Blood Count 9.0 K/mm3 (4.4-11.0)
[2025-01-28 07:41] LABS: Anion Gap 15 (5-15); BUN 58 mg/dL (4-19); BUN/Creat Ratio 10.4 RATIO (10-20); Calcium,Total 8.2 mg/dL (7.6-11.0); Carbon Dioxide 21.9 mmol/L (21.0-32.0); Chloride 93 mmol/L (98-108); Estimated Creatinine Clearance 10.91 ml/min (50-250); Glucose 158 mg/dL (70-99); Potassium 5.5 mmol/L (3.3-5.1)
--- NOTE | 2025-01-28 08:25 | NURSING ---
Spoke with Dr. Alva, reviewed lab work. Dr Alva okay to run pt today and then continue regular schedule for and Tuesday. Orders received.
[2025-01-28] MEDS: Senna/Docusate Sodium 1 Tablet 2 TABLET PO ×2 (08:32→21:01)
[2025-01-28] MEDS: Cholecalciferol (Vit D3) 125 MCG CAPSULE (5,000 UNITS) PO (08:32)
[2025-01-28] MEDS: APIXABAN 2.5 MG TABLET (WCH) PO ×2 (08:33→21:01)
[2025-01-28] MEDS: PureFlow B 2K Dialysis Soln 1 BAG 6 BAG PF (09:58)
[2025-01-28] MEDS: 0.9% Normal Saline 1,000 ML IV.SOLN. 1000 ML OPERA.SITE (09:59)
--- NOTE | 2025-01-28 10:45 | PN.HOSP_ITS ---
Subjective Subjective Doing well, denies any pain. Though he states that he then have surgery when he has had a right hip fracture repaired on 01/26/2025 a little bit confused but this appears to be his baseline Objective Data Objective Data Vital Signs: Vital Signs Temp Pulse Resp BP Pulse Ox O2 Del Method O2 Flow Rate 97.6 F L 67 16 132/56 H 93 Room Air 3 01/28/25 10:01/28/25 10:30 01/28/25 10:01/28/25 10:30 01/28/25 10:01/28/25 10:01/27/25 07:29 Oxygen Flow Rate (L/min) 3 Oxygen Delivery Method Room Air Weight: 214 lb 8.156 oz Body Mass Index (BMI) 30.7 Intake & Output: Intake and Output for Last 24 Hours 01/27/25 01/28/25 01/29/25 03:59 03:59 03:59 Intake Total 976.25 / 976.25 240 / 240 Output Total 1795 / 1795 0 / 0 Balance -1795 / -1795 976.25 / 976.25 230 / 230 Lab / Micro Data 01/28/25 07:06 01/28/25 07:06 Labs: Laboratory Results - last 24 hr 01/25/25 16:35: Crossmatch See Detail 01/27/25 11:50: POC Glucose 156 H 01/27/25 16:33: POC Glucose 159 H 01/27/25 21:46: POC Glucose 217 H 01/28/25 05:30: POC Glucose 148 H 01/28/25 07:06: WBC 9.0, RBC 2.34 L, Hgb 7.3 L, Hct 22.4 L, MCV 95.7 H, MCH 31.2, MCHC 32.6, RDW Std Deviation 53.7 H, RDW Coeff of Frances 15.4 H, Plt Count 135 L, MPV 11.4, Immature Gran % (Auto) 0.600, Neut % (Auto) 69.4, Lymph % (Auto) 14.0 L, [place] % (Auto) 13.3 H, Eos % (Auto) 2.1, Baso % (Auto) 0.6, Absolute Neuts (auto) 6.2, Absolute Lymphs (auto) 1.26, Nucleated RBC % 0, S odium 130 L, Potassium 5.5 H, Chloride 93 L, Carbon Dioxide 21.9, Anion Gap 15, BUN 58 H, Creatinine 5.58 H, Estim Creat Clear Calc 10.91 L, Est GFR (MDRD) Non- Af 9 L, BUN/Creatinine Ratio 10.4, Glucose 158 H, Calcium 8.2 Physical Exam Narrative General: Alert, Oriented x3, Cooperative, No apparent distress HEENT: Atraumatic, PERRLA, EOMI, Normocephalic Oral: Moist Mucosa Neck: Supple, No JVD Lungs: Diminished, Normal air movement, No rhonchi, No wheeze, No rales Cardiovascular: Regular rate, Regular Rhythm, Normal S1, Normal S2, No murmurs Abdomen: Soft, Non Tender, Non-Distended, No Hepato-splenomegaly Extremities: No edema, Capillary Refill Less than 3 Seconds Skin: Right hip dressing CDI Musculoskeletal: Right BKA Neurological: No focal neurological deficits, Motor Exam 5/5 strength throughout, Sensory exam intact to light touch and pain Psych/Mental Status: Normal Affect, Appropriate Assessment & Plan Assessment/Plan (1) Fall: (2) Closed right hip fracture: PLAN: Plan #Right intertrochanteric fracture due to mechanical fall with postoperative blood loss anemia * right hip xray showed right intertrochanteric comminuted fracture * orthopedics on board. * tody is POD 1 for right hip IM nailing * PT/OT On board * PO aspirin and eliquis on hold. 01/28/2025: Will transfuse 2 units today given his cardiac history. He is down to 7.3 he was 10 on admission hopefully can give blood with dialysis today. He had some hypotension was started on midodrine 10 mg p.o. 3 times daily, his hypotension is likely related to his blood loss. His Eliquis has been resumed #History of afib: on eliquis, which is on hold. Resume when ok with orthopedics 01/28/2025: Resumed Eliquis #History of PAD: s/p right BKA. aspirin on hold. Resume as soon as ok with orthopedics #Type 2 diabetes mellitus: on ISS. Accuchecks ACHS #ESRD: on HD. On dialysis Saturdays. On torsemide. Hold torsemide due to hypotension #History of heart block: s/p pacemaker. #HFpEF: on intake and output. Fluid restriction to 1500cc daily. 01/28/2025: Hopefully blood can be transfused during dialysis and the fluid can be removed otherwise we will need to do diuretic DVT: Eliquis Charges/Coding Visit Charges Inpatient E&M: 29610 Subs Hosp L2
--- NOTE | 2025-01-28 10:47 | CASEMGMT ---
Addendum entered by Jacqui Arora 01/28/25 10:52: SAURAV sent updates to [facility]. TERRI Keating Original Note: Social Work- SAURAV received a call from Jey, pt son-in-law reporting that he would like pt to return skilled to work on stand/pivot. Jey reports that pt has been intermittently able to perofrm skill. SAURAV sent [facility] updates and updated on request to skill. [facility] reports that pt can return pend precert. SAURAV remains available to follow. Plan: [facility]; return TERRI Keating
--- NOTE | 2025-01-28 11:32 | CON.PCM.RE_ITS ---
Assessment & Plan Assessment/Plan (1) End stage renal disease: (2) Closed right hip fracture: (3) Anemia of chronic disease: PLAN: Plan This is an 89-year-old male with past medical history significant for ESRD on hemodialysis Tuesday, last dialyzed Tuesday in hospital, admitted on January 25 after found to have right hip fracture underwent right hip ORIF surgery on January 26. Patient is undergoing hemodialysis today over 4.5 hours on 2K bath and attempting fluid removal as patient/blood pressure tolerates. Hemoglobin 7.3, patient to receive PRBC during dialysis today. Further orders forthcoming as hospitalization evolves, thank you for allowing us to participate in the care of Mr. Lubin. Assessment and plan reviewed with Dr. Alva. HPI Consult Data Date of Consult: 01/28/25 HPI Narrative HPI Narrative: PERLA LUBIN, is a 89 M who presented to the emergency room on January 25 for evaluation of pain in right hip after patient had a fall. Found to have right hip fracture and admitted for further evaluation and treatment. Patient underwent right hip surgery on January 26. Nephrology consulted as patient has history of ESRD and is on hemodialysis. Patient currently dialyzes at [facility] [place] Tuesday schedule. Patient is compliant with dialysis. He last dialyzed Tuesday. Patient currently denies any complaints today. 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 Wound, open, foot End stage renal disease MRSA (methicillin resistant staph aureus) culture positive Cutaneous abscess of right foot Diabetic infection of right foot Acute hyperkalemia Open wound Lives in [place] [facility] Dietary restriction History of stress test History of echocardiogram Cardiology follow-up encounter History of atrial fibrillation Insulin dependent diabetes mellitus Other specified peripheral vascular diseases Type 2 diabetes mellitus with diabetic polyneuropathy Atherosclerosis of [place] artery of extremity with ulceration ESRD (end stage renal disease) Type 2 diabetes mellitus with foot ulcer Diabetes mellitus with diabetic 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 Pre-op testing Loose, teeth Wears glasses Cancer Dialysis patient Kidney disease Non-smoker Edema Syncope Chronic diastolic (congestive) heart failure (04/18/20) Paroxysmal atrial fibrillation Sinus bradycardia Type 2 diabetes mellitus Hyperkalemia Swelling of both lower extremities HLD (hyperlipidemia) Left bundle-branch block 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 Abnormal electrocardiogram Home Medications ?Medication ?Instructions ?Recorded ?Last Taken ?Type aspirin 81 mg tablet,delayed 81 mg PO DAILY heart heal th 07/01/20 08/28/24 History release (Adult Aspirin Regimen) torsemide 100 mg tablet 100 mg PO MOWEFR water pill 04/14/24 08/27/24 History sennosides 8.6 mg-docusate sodium 1 tab-cap PO BID PRN PRN 06/04/24 06/05/24 History 50 mg tablet (Stimulant Laxative Constipation Plus) cholecalciferol (vitamin D3) 125 125 mcg PO DAILY SUPP LEMENT 07/13/24 08/28/24 History mcg (5,000 unit) capsule benzocaine 15 mg-menthol 3.6 mg 2 mariaa mucous membrane Q2H PRN PRN 07/20/24 Unknown Rx lozenges (Sore Throat (benzocaine sore throat #0 ea with menthol)) apixaban 2.5 mg tablet (Eliquis) 2.5 mg PO BID #180 ta bs 10/30/24 Unknown Rx acetaminophen 500 mg capsule 1,000 mg PO Q8H PRN PRN f ever or 11/22/24 Unknown History pain calcium acetate(phosphat bind) 667 667 mg PO TID 01/25 Unknown History mg capsule dulaglutide 0.75 mg/0.5 mL 1.5 mg subcut .Qtuesday 10/14 Unknown History subcutaneous pen injector (Trulicity) insulin glargine 100 unit/mL (3 14 unit subcut DAILY d iabetes 01/25/25 Unknown History mL) subcutaneous pen vitamin B complex-vitamin C-folic 1 tab PO DAILY 01/25 Unknown History acid 400 mcg tablet Allergy/AdvReac Type Severity Reaction Status Date / Time pioglitazone (From Actos) Allergy fatigue Verified 11/22/24 08:49 simvastatin (From Zocor) Allergy myalgia Verified 11/22/24 08:49 sitagliptin (From Januvia) Allergy unknown Verified 11/22/24 08:49 Family History Mother Hypertension Father Diabetes COPD (chronic obstructive pulmonary disease) Surgical History Hx of amputation History of incision and drainage Hx of foot surgery History of cataract extraction History of ligation of vein History of arteriovenostomy for renal dialysis History of inguinal hernia repair History of appendectomy Social History housing: [facility] current occupational status: retired Smoking Status: Never smoker alcohol intake: never substance use type: does not use caffeine: Yes Type: coffee Number of servings: 1 what type of physical activity do you participate in: none seatbelt use: always do you feel safe at home: Yes ROS ROS Narrative as in HPI Physical Exam Narrative Alert and oriented x 3, no apparent distress S1, S2, RRR Lungs sound clear anteriorly and posteriorly. On room air Abdomen soft, rounded Right BKA, left lower leg with pitting edema Left forearm AV fistula accessed for hemodialysis Lab / Micro Data 01/28/25 07:06 01/28/25 07:06 Labs: Laboratory Results - last 24 hr 01/25/25 16:35: Crossmatch See Detail 01/27/25 11:50: POC Glucose 156 H 01/27/25 16:33: POC Glucose 159 H 01/27/25 21:46: POC Glucose 217 H 01/28/25 05:30: POC Glucose 148 H 01/28/25 07:06: WBC 9.0, RBC 2.34 L, Hgb 7.3 L, Hct 22.4 L, MCV 95.7 H, MCH 31.2, MCHC 32.6, RDW Std Deviation 53.7 H, RDW Coeff of Frances 15.4 H, Plt Count 135 L, MPV 11.4, Immature Gran % (Auto) 0.600, Neut % (Auto) 69.4, Lymph % (Auto) 14.0 L, [place] % (Auto) 13.3 H, Eos % (Auto) 2.1, Baso % (Auto) 0.6, Absolute Neuts (auto) 6.2, Absolute Lymphs (auto) 1.26, Nucleated RBC % 0, S odium 130 L, Potassium 5.5 H, Chloride 93 L, Carbon Dioxide 21.9, Anion Gap 15, BUN 58 H, Creatinine 5.58 H, Estim Creat Clear Calc 10.91 L, Est GFR (MDRD) Non- Af 9 L, BUN/Creatinine Ratio 10.4, Glucose 158 H, Calcium 8.2 01/28/25 11:13: POC Glucose 192 H
[2025-01-28 14:53] LABS: Hematocrit 32.0 % (40-54); Hemoglobin 10.7 g/dL (13.0-16.5)
--- NOTE | 2025-01-28 15:30 | CASEMGMT ---
Social Work- SAURAV received a call from Negar at [facility] to discuss discharge timing. SAURAV provided updates and will update at discharge. SAURAV remains available to follow. SAURAV met with pt son-in-law, Jey, to discuss discharge planning. Jey reports that he is agreeable to returning pend precert to [facility] if needed. TERRI Keating
[2025-01-29 03:10] VITALS: BP 126/50; PULSE 60; RESP 16; TEMP 36.8; O2SAT 100
[2025-01-29 03:15] VITALS: PULSE 60; RESP 17; O2SAT 93
[2025-01-29 05:13] LABS: Hematocrit 27.8 % (40-54); Hemoglobin 9.1 g/dL (13.0-16.5); Immature Granulocytes Count 0.070 X10^3/uL (0.0-0.0); Mean Corp Hgb Conc 32.7 g/dL (32-36); Mean Corpuscular Volume 93.0 fL (80-94); Mean Platelet Vol. 11.7 fl (6.2-12.0); NRBC Flagged by Analyzer 0 % (0-5); Platelet Count 137 K/mm3 (150-450); RBC Distribution Width CV 17.0 % (11.6-14.6); RBC Distribution Width SD 57.5 fl (35.1-43.9); Red Blood Count 2.99 M/mm3 (4.6-6.2); White Blood Count 8.2 K/mm3 (4.4-11.0)
[2025-01-29 05:26] VITALS: BMI 30.4
[2025-01-29 05:33] LABS: Anion Gap 14 (5-15); BUN 43 mg/dL (4-19); BUN/Creat Ratio 10.6 RATIO (10-20); Calcium,Total 8.6 mg/dL (7.6-11.0); Carbon Dioxide 23.8 mmol/L (21.0-32.0); Chloride 96 mmol/L (98-108); Estimated Creatinine Clearance 14.95 ml/min (50-250); Glucose 218 mg/dL (70-99); Potassium 4.1 mmol/L (3.3-5.1)
[2025-01-29] MEDS: APIXABAN 2.5 MG TABLET (WCH) PO (09:43)
[2025-01-29] MEDS: Cholecalciferol (Vit D3) 125 MCG CAPSULE (5,000 UNITS) PO (09:43)
[2025-01-29 09:48] VITALS: BP 125/59; PULSE 60; RESP 14; TEMP 36.6; O2SAT 96
--- NOTE | 2025-01-29 09:51 | TREXTCAR_ITS ---
Diet Diet Order/Speech Therapy: INPATIENT Hospital Diet / Speech Therapy Order(s) 01/26/25 18:40 Diet: Renal - General Dietary Modifications:: Cardiac / Heart Healthy Routine Orders/Code Status Routine Lab Work: CBC and BMP Code Status: Full Code DC O2, CPAP, BIPAP needs Home O2 Discharge instructions: No Wound(s) R FA: Wound Type: Skin Tear right hip: Wound Type: Surgical Incision Therapies Physical Therapy: Eval and Treat Occupational Therapy: Eval and Treat Problem/Diagnosis (1) End stage renal disease: Status: Acute Code(s): N18.6 - End stage renal disease (2) Closed right hip fracture: Status: Acute Code(s): S72.001A - Fracture of unspecified part of neck of right femur, initial encounter for closed fracture (3) Anemia of chronic disease: Status: Chronic Code(s): D63.8 - Anemia in other chronic diseases classified elsewhere Plan #Right intertrochanteric fracture due to mechanical fall with postoperative blood loss anemia * right hip xray showed right intertrochanteric comminuted fracture * orthopedics on board. * tody is POD 1 for right hip IM nailing * PT/OT On board * PO aspirin and eliquis on hold. 01/28/2025: Will transfuse 2 units today given his cardiac history. He is down to 7.3 he was 10 on admission hopefully can give blood with dialysis today. He had some hypotension was started on midodrine 10 mg p.o. 3 times daily, his hypotension is likely related to his blood loss. His Eliquis has been resumed #History of afib: on eliquis, which is on hold. Resume when ok with orthopedics 01/28/2025: Resumed Eliquis #History of PAD: s/p right BKA. aspirin on hold. Resume as soon as ok with orthopedics #Type 2 diabetes mellitus: on ISS. Accuchecks ACHS #ESRD: on HD. On dialysis Saturdays. On torsemide. Hold torsemide due to hypotension #History of heart block: s/p pacemaker. #HFpEF: on intake and output. Fluid restriction to 1500cc daily. 01/28/2025: Hopefully blood can be transfused during dialysis and the fluid can be removed otherwise we will need to do diuretic DVT: Eliquis Allergies/Procedures Done in Hospital Allergies pioglitazone (From Actos) Allergy (Verified 11/22/24 08:49) fatigue simvastatin (From Zocor) Allergy (Verified 11/22/24 08:49) myalgia sitagliptin (From Januvia) Allergy (Verified 11/22/24 08:49) unknown Type of Care/Length of Stay Estimated LOS: Convalescent Care Less Than 30 days Type of Care Needed: Skilled Rehab Potential: Fair Prognosis: Fair Additional Orders/Day of Discharge Additional Orders: radha lift. transfers as tolerated. change dressing pod 4/5 . leave steris on 2 weeks. Day of Discharge: 01/29/25 Dietary and Speech Recommendations Dietitian Recommendations/Changes: As medically able, rec MEGAN to Renal general / Consistent CHO diet Discharge Plan Admission Admit Date/Time: 01/25/25 17:56 Attending Provider: Jaswant Montgomery Primary Care Provider: Nando Wiggins Consulting Providers: Hakan Gunter; Jayla Osuna; Manuel Alva; Kimberly Orozco Discharge Orders/Prescriptions Prescriptions: New oxycodone 5 mg Tablet 5 mg PO Q4H PRN PRN (Reason: prn pain 4-10) 3 Days Qty: 10 0RF sennosides-docusate sodium [Stimulant Laxative Plus] 8.6-50 mg Tablet 2 tab PO BID Qty: 0 0RF Continued torsemide 100 mg tablet 100 mg PO MOWEFR Patient Comments: on non-dialysis days cholecalciferol (vitamin D3) 125 mcg (5,000 unit) capsule 125 mcg PO DAILY Sore Throat (benzocaine-menth) 15-3.6 mg Lozenge 2 mariaa mucous membrane Q2H PRN PRN (Reason: sore throat) Qty: 0 0RF acetaminophen 500 mg capsule 1,000 mg PO Q8H PRN PRN (Reason: fever or pain) B complex-vitamin C-folic acid 400 mcg tablet 1 tab PO DAILY Trulicity 0.75 mg/0.5 mL pen injector 1.5 mg subcut .Qtuesday Rx Instructions: Once a morning on Tuesday calcium acetate(phosphat bind) 667 mg capsule 667 mg PO TID Rx Instructions: with meals insulin glargine 100 unit/mL (3 mL) insulin pen 14 unit SC DAILY Eliquis 2.5 mg tablet 2.5 mg PO BID Qty: 180 3RF Held aspirin [Adult Aspirin Regimen] 81 mg tablet,delayed release (DR/EC) 81 mg PO DAILY Hold Instructions: Resume on 02/01/25. Discontinued sennosides-docusate sodium [Stimulant Laxative Plus] 8.6-50 mg Tablet 1 tab-cap PO BID PRN PRN (Reason: Constipation) Referrals / Follow Up: Nando Wiggins MD [Primary Care Provider] - Hakan Gunter MD [Med Staff - Active Staff] - Within 2 Weeks Disposition Disposition (needs filled in before D/C Order can be placed): [facility] Facility
--- NOTE | 2025-01-29 10:03 | DS.PCM_ITS ---
Providers Date of Admission: 01/25/25 Primary Care Physician: Dr. Nando Wiggins MD Consultations 01/25/25 19:49 Consult: Orthopedics Routine Consulting Provider: Hakan Gunter Reason for Consult: R hip fx EMERGENT Consult: No Notified: Yes Date Notified: 01/25/25 Time Notified: 19:49 Method of Notification: ED Physician Initiated 01/25/25 19:55 Consult: Nephrology Routine Consulting Provider: Manuel Alva Reason for Consult: esrd on HD EMERGENT Consult: No MD Notified: Yes Date Notified: 01/26/25 Time Notified: 07:26 Method of Notification: Text Reason For Visit: RIGHT INTRATROCHANTERIC FRACTURE Diagnosis Discharge Diagnosis (1) End stage renal disease: Status: Acute Code(s): N18.6 - End stage renal disease (2) Closed right hip fracture: Status: Acute Code(s): S72.001A - Fracture of unspecified part of neck of right femur, initial encounter for closed fracture (3) Anemia of chronic disease: Status: Chronic Code(s): D63.8 - Anemia in other chronic diseases classified elsewhere Medications at Discharge Home Medications aspirin 81 mg tablet,delayed release (Adult Aspirin Regimen) 81 mg PO DAILY [facility] 07/01/20 Held on 01/29/25. Instructions: Resume on 02/01/25. torsemide 100 mg tablet 100 mg PO MOWEFR water pill 04/14/24 cholecalciferol (vitamin D3) 125 mcg (5,000 unit) capsule 125 mcg PO DAILY SUPPLEMENT 07/13/24 benzocaine 15 mg-menthol 3.6 mg lozenges (Sore Throat (benzocaine with menthol)) 2 mariaa mucous membrane Q2H PRN PRN sore throat #0 ea 07/20/24 apixaban 2.5 mg tablet (Eliquis) 2.5 mg PO BID #180 tabs 10/30/24 acetaminophen 500 mg capsule 1,000 mg PO Q8H PRN PRN fever or pain 11/22/24 calcium acetate(phosphat bind) 667 mg capsule 667 mg PO TID 01/25/25 dulaglutide 0.75 mg/0.5 mL subcutaneous pen injector (Trulicity) 1.5 mg subcut .Qtuesday 01/25/25 insulin glargine 100 unit/mL (3 mL) subcutaneous pen 14 unit subcut DAILY diabetes 01/25/25 vitamin B complex-vitamin C-folic acid 400 mcg tablet 1 tab PO DAILY 01/25/25 oxycodone 5 mg tablet 5 mg PO Q4H PRN PRN prn pain 4-10 3 days #10 tabs 01/29/25 sennosides 8.6 mg-docusate sodium 50 mg tablet (Stimulant Laxative Plus) 2 tab PO BID #0 tabs 01/29/25 Hospital Course Operations - (R hip IM Nail synthes TFN-A intermediate length 125 angle) Procedures None Summary of Care Provided Minutes Spent on Discharge: 34 Hospital Course: Per HPI: PERLA LUBIN, is a 89-year-old male history of type 2 diabetes, right BKA, end-stage renal disease on hemodialysis, diabetes, PAD, history chronic heart failure with preserved ejection fraction who presented to [facility] ED 01/25/2025 due to a fall. Reportedly he fell out of his recliner and onto his right hip and had significant pain. In the ED temp 97.5, heart rate 63, blood pressure 131/68, respiratory rate 16 pulse ox 92% on room air. CBC in the ED white count of 6.8, hemoglobin 9.9, BMP with a BUN of 47 and a creatinine 5.11, glucose 213, patient had hip and pelvis x-ray which showed comminuted impacted right intertrochanteric fracture. Ortho consulted and recommended hospitalist admit with Ortho consult. Patient evaluated with family members at bedside, patient denies any complaints other than his right leg hurting significantly, denying any cough or shortness of breath, notes his mouth is dry and wants something to drink. Hospital Course: #Right intertrochanteric fracture due to mechanical fall with postoperative blood loss anemia * right hip xray showed right intertrochanteric comminuted fracture * orthopedics on board. * tody is POD 1 for right hip IM nailing * PT/OT On board * PO aspirin and eliquis on hold. 01/28/2025: Will transfuse 2 units today given his cardiac history. He is down to 7.3 he was 10 on admission hopefully can give blood with dialysis today. He had some hypotension was started on midodrine 10 mg p.o. 3 times daily, his hypotension is likely related to his blood loss. His Eliquis has been resumed 01/29/2025: Hemoglobin corrected to 9.1 which is an appropriate correction. Continue with transfer to SNF for therapy he will need to follow-up with orthopedic surgery in 2 weeks. I do recommend monitoring his hemoglobin as an outpatient as well as he needs to be on Eliquis to prevent DVTs after his surgery. We will however hold his aspirin for a few days. #History of afib: on eliquis, which is on hold. Resume when ok with orthopedics 01/28/2025: Resumed Eliquis #History of PAD: s/p right BKA. aspirin on hold. Resume as soon as ok with orthopedics #Type 2 diabetes mellitus: on ISS. Accuchecks ACHS #ESRD: on HD. On dialysis Saturdays. On torsemide. Hold torsemide due to hypotension #History of heart block: s/p pacemaker. #HFpEF: on intake and output. Fluid restriction to 1500cc daily. 01/28/2025: Hopefully blood can be transfused during dialysis and the fluid can be removed otherwise we will need to do diuretic Physical Exam Narrative General: Alert, Oriented x3, Cooperative, No apparent distress HEENT: Atraumatic, PERRLA, EOMI, Normocephalic Oral: Moist Mucosa Neck: Supple, No JVD Lungs: Diminished, Normal air movement, No rhonchi, No wheeze, No rales Cardiovascular: Regular rate, Regular Rhythm, Normal S1, Normal S2, No murmurs Abdomen: Soft, Non Tender, Non-Distended, No Hepato-splenomegaly Extremities: No edema, Capillary Refill Less than 3 Seconds Skin: Right hip dressing CDI Musculoskeletal: Right BKA Neurological: No focal neurological deficits, moves all extremities, right lower extremity limited the pain, sensation intact Psych/Mental Status: Normal Affect, Appropriate Weight / BMI Weight Weight: 212 lb 15.465 oz Body Mass Index (BMI) 30.4 ABG / Lab / Microbiology Data 01/29/25 04:31 01/29/25 04:31 Laboratory: Laboratory Results - last 24 hr 01/25/25 16:35: Crossmatch See Detail 01/28/25 14:43: Hgb 10.7 L, Hct 32.0 L 01/28/25 16:49: POC Glucose 220 H 01/28/25 20:56: POC Glucose 208 H 01/29/25 04:31: WBC 8.2, RBC 2.99 L, Hgb 9.1 L, Hct 27.8 L, MCV 93.0, MCH 30.4, MCHC 32.7, RDW Std Deviation 57.5 H, RDW Coeff of Frances 17.0 H, Plt Count 137 L, MPV 11.7, Immature Gran % (Auto) 0.900, Neut % (Auto) 68.9, Lymph % (Auto) 13.6 L, Borden % (Auto) 13.7 H, Eos % (Auto) 2.3, Baso % (Auto) 0.6, Absolute Neuts (auto) 5.6, Absolute Lymphs (auto) 1.11, Nucleated RBC % 0, Sodium 134, Potassium 4.1, Chloride 96 L, Carbon Dioxide 23.8, Anion Gap 14, BUN 43 H, C reatinine 4.06 H, Estim Creat Clear Calc 14.95 L, Est GFR (MDRD) Non-Af 14 L, BUN/Creatinine Ratio 10.6, Glucose 218 H, Calcium 8.6 01/29/25 06:02: POC Glucose 207 H D/C Instructions Weight Bearing Status: Weight bearing as tolerated DC O2, CPAP, BIPAP Needs Home O2 Discharge instructions: No Meaningful Use Info Meaningful Use Meaningful Use Diagnoses (Choose all that apply): None applicable Discharge Plan Admission Admit Date/Time: 01/25/25 17:56 Attending Provider: Jaswant Montgomery Primary Care Provider: Nando Wiggins Consulting Providers: Hakan Gunter; Jayla Osuna; Manuel Alva; Kimberly Orozco Discharge Orders/Prescriptions Prescriptions: New oxycodone 5 mg Tablet 5 mg PO Q4H PRN PRN (Reason: prn pain 4-10) 3 Days Qty: 10 0RF sennosides-docusate sodium [Stimulant Laxative Plus] 8.6-50 mg Tablet 2 tab PO BID Qty: 0 0RF Continued torsemide 100 mg tablet 100 mg PO MOWEFR Patient Comments: on non-dialysis days cholecalciferol (vitamin D3) 125 mcg (5,000 unit) capsule 125 mcg PO DAILY Sore Throat (benzocaine-menth) 15-3.6 mg Lozenge 2 mariaa mucous membrane Q2H PRN PRN (Reason: sore throat) Qty: 0 0RF acetaminophen 500 mg capsule 1,000 mg PO Q8H PRN PRN (Reason: fever or pain) B complex-vitamin C-folic acid 400 mcg tablet 1 tab PO DAILY Trulicity 0.75 mg/0.5 mL pen injector 1.5 mg subcut .Qt Rx Instructions: Once a morning on Tuesday calcium acetate(phosphat bind) 667 mg capsule 667 mg PO TID Rx Instructions: with meals insulin glargine 100 unit/mL (3 mL) insulin pen 14 unit SC DAILY Eliquis 2.5 mg tablet 2.5 mg PO BID Qty: 180 3RF Held aspirin [Adult Aspirin Regimen] 81 mg tablet,delayed release (DR/EC) 81 mg PO DAILY Hold Instructions: Resume on 02/01/25. Discontinued sennosides-docusate sodium [Stimulant Laxative Plus] 8.6-50 mg Tablet 1 tab-cap PO BID PRN PRN (Reason: Constipation) Referrals / Follow Up: Nando Wiggins MD [Primary Care Provider] - Hakan Gunter MD [Med Staff - Active Staff] - Within 2 Weeks Disposition Disposition (needs filled in before D/C Order can be placed): [facility] Charges/Coding Visit Charges Inpatient E&M: 18613 Disch Hosp >30min
--- NOTE | 2025-01-29 10:11 | PCM.PN.REN ---
Subjective Subjective Resting in bed. No overnight events. Denies any complaints. Objective Data Objective Data Vital Signs: Vital Signs Temp Pulse Resp BP Pulse Ox O2 Del Method O2 Flow Rate 97.9 F 60 14 125/59 H 96 Room Air 3 01/29/25 09:48 01/29/25 09:48 01/29/25 09:48 01/29/25 09:48 01/29/25 09:48 01/29/25 09:48 01/27/25 07:29 Oxygen Flow Rate (L/min) 3 Oxygen Delivery Method Room Air Weight: 96.6 kg Body Mass Index (BMI) 30.4 Intake & Output: Intake and Output for Last 24 Hours 01/27/25 01/28/25 01/29/25 23:59 23:59 23:59 Intake Total 976.25 / 976.25 1040 / 1160 230 / 230 Output Total 0 / 0 4470 / 4470 Balance 976.25 / 976.25 -3430 / -3310 230 / 230 Lab / Micro Data 01/29/25 04:31 01/29/25 04:31 Labs: Laboratory Results - last 24 hr 01/25/25 16:35: Crossmatch See Detail 01/28/25 11:13: POC Glucose 192 H 01/28/25 14:43: Hgb 10.7 L, Hct 32.0 L 01/28/25 16:49: POC Glucose 220 H 01/28/25 20:56: POC Glucose 208 H 01/29/25 04:31: WBC 8.2, RBC 2.99 L, Hgb 9.1 L, Hct 27.8 L, MCV 93.0, MCH 30.4, MCHC 32.7, RDW Std Deviation 57.5 H, RDW Coeff of Frances 17.0 H, Plt Count 137 L, MPV 11.7, Immature Gran % (Auto) 0.900, Neut % (Auto) 68.9, Lymph % (Auto) 13.6 L, Buchanan % (Auto) 13.7 H, Eos % (Auto) 2.3, Baso % (Auto) 0.6, Absolute Neuts (auto) 5.6, Absolute Lymphs (auto) 1.11, Nucleated RBC % 0, Sodium 134, Potassium 4.1, Chloride 96 L, Carbon Dioxide 23.8, Anion Gap 14, BUN 43 H, Creatinine 4.06 H, Estim Creat Clear Calc 14.95 L, Est GFR (MDRD) Non-Af 14 L, BUN/Creatinine Ratio 10.6, Glucose 218 H, Calcium 8.6 01/29/25 06:02: POC Glucose 207 H Physical Exam Narrative Alert and oriented x 3, no apparent distress S1, S2, RRR Lungs sound clear anteriorly and posteriorly. On room air Abdomen soft, rounded Right BKA, left lower leg with pitting edema Left forearm AV fistula positive thrill and bruit Assessment & Plan Assessment/Plan (1) End stage renal disease: (2) Closed right hip fracture: (3) Anemia of chronic disease: PLAN: Plan This is an 89-year-old male with past medical history significant for ESRD on hemodialysis Tuesday, last dialyzed Tuesday in hospital, admitted on January 25 after found to have right hip fracture underwent right hip ORIF surgery on January 26. - ESRD on hemodialysis. Outpatient dialysis schedule Tuesday at [facility] [place]. Patient dialyzed yesterday on 2K bath and tolerated around 4 L fluid removal. No acute indication for renal placement therapy today. -Anemia of chronic disease; patient received 2 unit PRBC. Follow hemoglobin trends. Patient will receive CRYSTAL and Venofer at dialysis. -Discharge planning in progress to ECF. Assessment and plan reviewed with Dr. Alva.
--- NOTE | 2025-01-29 10:33 | CASEMGMT ---
Social Work- Physician feels that pt is ready for discharge today.? DCA notified of discharge. DCA to complete all final arrangements and notifications. Disposition: [facility], TERRI Egan
--- NOTE | 2025-01-29 10:42 | CASEMGMT ---
Discharge Planning Discharge orders, signed med list, narcotic script, and transport time sent to [facility]. Physicians will transport pt by cot at 12p. Nursing, SW, pt, and his ARNOL (Jey) updated. Alanna Gaston DC Planning Asst.
--- NOTE | 2025-01-29 11:41 | PHA.DC.MR.R ---
Pharmacy [place] Med Reconciliation Pharmacy Service has performed discharge medication reconciliation for this patient. The patient's discharge medication list was reviewed for discrepancies and discrepancies were resolved. Medications at Discharge Home Medications aspirin 81 mg tablet,delayed release (Adult Aspirin Regimen) 81 mg PO DAILY [facility] 07/01/20 Held on 01/29/25. Instructions: Resume on 02/01/25. torsemide 100 mg tablet 100 mg PO MOWEFR water pill 04/14/24 cholecalciferol (vitamin D3) 125 mcg (5,000 unit) capsule 125 mcg PO DAILY SUPPLEMENT 07/13/24 benzocaine 15 mg-menthol 3.6 mg lozenges (Sore Throat (benzocaine with menthol)) 2 mariaa mucous membrane Q2H PRN PRN sore throat #0 ea 07/20/24 apixaban 2.5 mg tablet (Eliquis) 2.5 mg PO BID #180 tabs 10/30/24 acetaminophen 500 mg capsule 1,000 mg PO Q8H PRN PRN fever or pain 11/22/24 calcium acetate(phosphat bind) 667 mg capsule 667 mg PO TID 01/25/25 dulaglutide 0.75 mg/0.5 mL subcutaneous pen injector (Trulicity) 1.5 mg subcut .Qtuesday 01/25/25 insulin glargine 100 unit/mL (3 mL) subcutaneous pen 14 unit subcut DAILY diabetes 01/25/25 vitamin B complex-vitamin C-folic acid 400 mcg tablet 1 tab PO DAILY 01/25/25 oxycodone 5 mg tablet 5 mg PO Q4H PRN PRN prn pain 4-10 3 days #10 tabs 01/29/25 sennosides 8.6 mg-docusate sodium 50 mg tablet (Stimulant Laxative Plus) 2 tab PO BID #0 tabs 01/29/25
--- NOTE | 2025-01-29 12:30 | NURSING ---
attempted to call report to misti, [facility]. no answer, vm full, unable to leave msg
--- NOTE | 2025-01-29 12:36 | NURSING ---
report called to brandie
--- NOTE | 2025-02-06 15:44 | CASEMGMT ---
Social Work- SAURAV received a message from Jey, pt son-in-law, requesting assistance with medical documentation requested by [employer] for a precert/claim. SAURAV provided Jey with the correct contact information for documentation requested. Jey appreciative of the information. TERRI Keating
== END 2025-01-29 12:45 | disposition skilled nursing facility (03) | DRG 480 ==
LOC: ED 17:35 → MS3 18:03
PROVIDERS: Anesthesiology; Orthopaedic Surgery Sports Medicine; Student in an Organized Health Care Education/Training Program; Admitting Provider Internal Medicine; Emergency Provider Emergency Medicine; PCP Internal Medicine; Visit Provider Family Medicine
PROC: 0QS636Z Reposition Right Upper Femur with Intramedullary Internal Fixation Device, Percutaneous Approach (ICD-10-PCS; principal; 2025-01-26 10:00)
DX: S72.141A Displaced intertrochanteric fracture of right femur, initial encounter for closed fracture (principal); N18.6 End stage renal disease; I13.2 Hypertensive heart and chronic kidney disease with heart failure and with stage 5 chronic kidney disease, or end stage renal disease; I50.32 Chronic diastolic (congestive) heart failure; D62 Acute posthemorrhagic anemia; D63.8 Anemia in other chronic diseases classified elsewhere; I44.1 Atrioventricular block, second degree; E11.22 Type 2 diabetes mellitus with diabetic chronic kidney disease; Z89.511 Acquired absence of right leg below knee; I48.0 Paroxysmal atrial fibrillation; I95.81 Postprocedural hypotension; Z99.2 Dependence on renal dialysis; W08.XXXA Fall from other furniture, initial encounter; Z79.4 Long term (current) use of insulin; E11.42 Type 2 diabetes mellitus with diabetic polyneuropathy; E11.51 Type 2 diabetes mellitus with diabetic peripheral angiopathy without gangrene; Z99.3 Dependence on wheelchair; Y92.129 Unspecified place in nursing home as the place of occurrence of the external cause; Z95.0 Presence of cardiac pacemaker; Z79.01 Long term (current) use of anticoagulants; Z79.82 Long term (current) use of aspirin; Z79.85 Long-term (current) use of injectable non-insulin antidiabetic drugs; Z79.899 Other long term (current) drug therapy
CPT/HCPCS: 36415; 71045; 73502; 73552; 73560; 76000; 80048; 82962; 85014; 85018; 85025; 86850; 86900; 86901; 90937; 93005; 94668; 97802; 99283; C1776; P9016; A4216; G0257; J2405

== ENCOUNTER → 2025-02-01 05:00 | Outpatient (REF) | payer MEDICARE, SELFPAY ==
[2025-02-01 07:14] LABS: Hematocrit 28.5 % (40-54); Hemoglobin 9.4 g/dL (13.0-16.5); Immature Granulocytes Count 0.060 X10^3/uL (0.0-0.0); Mean Corp Hgb Conc 33.0 g/dL (32-36); Mean Corpuscular Volume 94.7 fL (80-94); Mean Platelet Vol. 11.3 fl (6.2-12.0); NRBC Flagged by Analyzer 0 % (0-5); Platelet Count 178 K/mm3 (150-450); RBC Distribution Width CV 16.1 % (11.6-14.6); RBC Distribution Width SD 54.7 fl (35.1-43.9); Red Blood Count 3.01 M/mm3 (4.6-6.2); White Blood Count 6.7 K/mm3 (4.4-11.0)
[2025-02-01 07:29] LABS: Anion Gap 15 (5-15); BUN 46 mg/dL (4-19); BUN/Creat Ratio 10.9 RATIO (10-20); Calcium,Total 8.2 mg/dL (7.6-11.0); Carbon Dioxide 25.4 mmol/L (21.0-32.0); Chloride 95 mmol/L (98-108); Glucose 221 mg/dL (70-99); Potassium 4.5 mmol/L (3.3-5.1)
== END ==
LOC: OLS.WHLEAS 05:00
PROVIDERS: PCP Internal Medicine; Visit Provider Internal Medicine
DX: S72.141D Displaced intertrochanteric fracture of right femur, subsequent encounter for closed fracture with routine healing (principal); E11.42 Type 2 diabetes mellitus with diabetic polyneuropathy; M62.561 Muscle wasting and atrophy, not elsewhere classified, right lower leg; Z47.89 Encounter for other orthopedic aftercare
CPT/HCPCS: 36415; 80048; 85025

== ENCOUNTER → 2025-02-07 04:00 | Outpatient (REF) | payer MEDICARE, SELFPAY ==
[2025-02-07 08:29] LABS: Hematocrit 28.2 % (40-54); Hemoglobin 9.0 g/dL (13.0-16.5); Immature Granulocytes Count 0.060 X10^3/uL (0.0-0.0); Mean Corp Hgb Conc 31.9 g/dL (32-36); Mean Corpuscular Volume 96.6 fL (80-94); Mean Platelet Vol. 11.3 fl (6.2-12.0); NRBC Flagged by Analyzer 0 % (0-5); Platelet Count 231 K/mm3 (150-450); RBC Distribution Width CV 15.1 % (11.6-14.6); RBC Distribution Width SD 53.2 fl (35.1-43.9); Red Blood Count 2.92 M/mm3 (4.6-6.2); White Blood Count 8.9 K/mm3 (4.4-11.0)
[2025-02-07 08:52] LABS: Anion Gap 15 (5-15); BUN 54 mg/dL (4-19); BUN/Creat Ratio 9.5 RATIO (10-20); Calcium,Total 8.8 mg/dL (7.6-11.0); Carbon Dioxide 25.0 mmol/L (21.0-32.0); Chloride 93 mmol/L (98-108); Glucose 178 mg/dL (70-99); Potassium 4.7 mmol/L (3.3-5.1)
== END ==
LOC: OLS.WHLEAS 04:00
PROVIDERS: PCP Internal Medicine; Referring Provider Internal Medicine; Visit Provider Internal Medicine
DX: S72.141D Displaced intertrochanteric fracture of right femur, subsequent encounter for closed fracture with routine healing (principal); Z47.89 Encounter for other orthopedic aftercare; M62.561 Muscle wasting and atrophy, not elsewhere classified, right lower leg; E11.22 Type 2 diabetes mellitus with diabetic chronic kidney disease
CPT/HCPCS: 36415; 80048; 85025

== ENCOUNTER → 2025-02-12 04:30 | Outpatient (REF) | payer MEDICARE, SELFPAY ==
[2025-02-12 06:39] LABS: Hematocrit 29.8 % (40-54); Hemoglobin 9.4 g/dL (13.0-16.5); Immature Granulocytes Count 0.130 X10^3/uL (0.0-0.0); Mean Corp Hgb Conc 31.5 g/dL (32-36); Mean Corpuscular Volume 96.8 fL (80-94); Mean Platelet Vol. 11.0 fl (6.2-12.0); NRBC Flagged by Analyzer 0 % (0-5); Platelet Count 238 K/mm3 (150-450); RBC Distribution Width CV 15.0 % (11.6-14.6); RBC Distribution Width SD 51.9 fl (35.1-43.9); Red Blood Count 3.08 M/mm3 (4.6-6.2); White Blood Count 8.9 K/mm3 (4.4-11.0)
[2025-02-12 06:48] LABS: Anion Gap 14 (5-15); BUN 57 mg/dL (4-19); BUN/Creat Ratio 10.1 RATIO (10-20); Calcium,Total 8.8 mg/dL (7.6-11.0); Carbon Dioxide 25.3 mmol/L (21.0-32.0); Chloride 92 mmol/L (98-108); Glucose 173 mg/dL (70-99); Potassium 4.5 mmol/L (3.3-5.1)
== END ==
LOC: OLS.WHLEAS 04:30
PROVIDERS: PCP Internal Medicine; Referring Provider Internal Medicine; Visit Provider Internal Medicine
DX: E11.42 Type 2 diabetes mellitus with diabetic polyneuropathy (principal)
CPT/HCPCS: 36415; 80048; 85025

== ENCOUNTER → 2025-02-14 05:00 | Outpatient (REF) | payer MEDICARE, SELFPAY ==
[2025-02-14 09:35] LABS: Hematocrit 28.6 % (40-54); Hemoglobin 9.3 g/dL (13.0-16.5); Immature Granulocytes Count 0.090 X10^3/uL (0.0-0.0); Mean Corp Hgb Conc 32.5 g/dL (32-36); Mean Corpuscular Volume 96.6 fL (80-94); Mean Platelet Vol. 10.9 fl (6.2-12.0); NRBC Flagged by Analyzer 0 % (0-5); Platelet Count 233 K/mm3 (150-450); RBC Distribution Width CV 15.6 % (11.6-14.6); RBC Distribution Width SD 52.3 fl (35.1-43.9); Red Blood Count 2.96 M/mm3 (4.6-6.2); White Blood Count 8.0 K/mm3 (4.4-11.0)
[2025-02-14 09:51] LABS: Anion Gap 14 (5-15); BUN 42 mg/dL (4-19); BUN/Creat Ratio 8.4 RATIO (10-20); Calcium,Total 8.7 mg/dL (7.6-11.0); Carbon Dioxide 25.7 mmol/L (21.0-32.0); Chloride 93 mmol/L (98-108); Glucose 130 mg/dL (70-99); Potassium 4.5 mmol/L (3.3-5.1)
== END ==
LOC: OLS.WHLEAS 05:00
PROVIDERS: PCP Internal Medicine; Visit Provider Internal Medicine
DX: E11.22 Type 2 diabetes mellitus with diabetic chronic kidney disease (principal); N18.9 Chronic kidney disease, unspecified
CPT/HCPCS: 36415; 80048; 85025

== ENCOUNTER → 2025-02-28 05:55 | Outpatient (REF) | payer MEDICARE, SELFPAY ==
[2025-02-28 09:28] LABS: Hematocrit 35.3 % (40-54); Hemoglobin 11.1 g/dL (13.0-16.5); Immature Granulocytes Count 0.140 X10^3/uL (0.0-0.0); Mean Corp Hgb Conc 31.4 g/dL (32-36); Mean Corpuscular Volume 99.7 fL (80-94); Mean Platelet Vol. 11.0 fl (6.2-12.0); NRBC Flagged by Analyzer 0.3 % (0-5); Platelet Count 249 K/mm3 (150-450); RBC Distribution Width CV 16.3 % (11.6-14.6); RBC Distribution Width SD 55.8 fl (35.1-43.9); Red Blood Count 3.54 M/mm3 (4.6-6.2); White Blood Count 7.6 K/mm3 (4.4-11.0)
[2025-02-28 09:46] LABS: Anion Gap 11 (5-15); BUN 41 mg/dL (4-19); BUN/Creat Ratio 7.0 RATIO (10-20); Calcium,Total 9.0 mg/dL (7.6-11.0); Carbon Dioxide 28.4 mmol/L (21.0-32.0); Chloride 96 mmol/L (98-108); Glucose 197 mg/dL (70-99); Potassium 4.3 mmol/L (3.3-5.1)
== END ==
LOC: OLS.WHLEAS 05:55
PROVIDERS: PCP Internal Medicine; Visit Provider Internal Medicine
DX: S72.141D Displaced intertrochanteric fracture of right femur, subsequent encounter for closed fracture with routine healing (principal); Z47.89 Encounter for other orthopedic aftercare; M62.561 Muscle wasting and atrophy, not elsewhere classified, right lower leg; E11.22 Type 2 diabetes mellitus with diabetic chronic kidney disease
CPT/HCPCS: 36415; 80048; 85025

== ENCOUNTER → 2025-03-07 05:00 | Outpatient (REF) | payer MEDICARE, SELFPAY ==
[2025-03-07 06:39] LABS: Hematocrit 36.3 % (40-54); Hemoglobin 11.5 g/dL (13.0-16.5); Immature Granulocytes Count 0.040 X10^3/uL (0.0-0.0); Mean Corp Hgb Conc 31.7 g/dL (32-36); Mean Corpuscular Volume 99.2 fL (80-94); Mean Platelet Vol. 11.8 fl (6.2-12.0); NRBC Flagged by Analyzer 0 % (0-5); Platelet Count 148 K/mm3 (150-450); RBC Distribution Width CV 16.4 % (11.6-14.6); RBC Distribution Width SD 59.2 fl (35.1-43.9); Red Blood Count 3.66 M/mm3 (4.6-6.2); White Blood Count 7.2 K/mm3 (4.4-11.0)
[2025-03-07 07:05] LABS: Anion Gap 15 (5-15); BUN 46 mg/dL (4-19); BUN/Creat Ratio 7.7 RATIO (10-20); Calcium,Total 8.5 mg/dL (7.6-11.0); Carbon Dioxide 25.8 mmol/L (21.0-32.0); Chloride 95 mmol/L (98-108); Glucose 128 mg/dL (70-99); Potassium 4.4 mmol/L (3.3-5.1)
== END ==
LOC: OLS.WHLEAS 05:00
PROVIDERS: PCP Internal Medicine; Visit Provider Internal Medicine
DX: S72.141D Displaced intertrochanteric fracture of right femur, subsequent encounter for closed fracture with routine healing (principal); Z47.89 Encounter for other orthopedic aftercare; M62.561 Muscle wasting and atrophy, not elsewhere classified, right lower leg; E11.22 Type 2 diabetes mellitus with diabetic chronic kidney disease
CPT/HCPCS: 36415; 80048; 85025

== ENCOUNTER → 2025-03-12 05:00 | Outpatient (REF) | payer MEDICARE, SELFPAY ==
[2025-03-12 08:14] LABS: Hematocrit 36.5 % (40-54); Hemoglobin 11.8 g/dL (13.0-16.5); Immature Granulocytes Count 0.010 X10^3/uL (0.0-0.0); Mean Corp Hgb Conc 32.3 g/dL (32-36); Mean Corpuscular Volume 97.6 fL (80-94); Mean Platelet Vol. 12.1 fl (6.2-12.0); NRBC Flagged by Analyzer 0 % (0-5); Platelet Count 179 K/mm3 (150-450); RBC Distribution Width CV 15.5 % (11.6-14.6); RBC Distribution Width SD 55.2 fl (35.1-43.9); Red Blood Count 3.74 M/mm3 (4.6-6.2); White Blood Count 7.6 K/mm3 (4.4-11.0)
[2025-03-12 08:41] LABS: AST(SGOT) 18 U/L (<=37); Alanine Aminotransfer ALT/SGPT 8 U/L (<=46); Albumin, Serum 3.6 g/dL (3.4-4.8); Alkaline Phosphatase 67 U/L (40-129); Anion Gap 13 (5-15); BUN 49 mg/dL (4-19); BUN/Creat Ratio 7.8 RATIO (10-20); Bilirubin, Direct 0.13 mg/dL (0.00-0.30); Calcium,Total 9.0 mg/dL (7.6-11.0); Carbon Dioxide 27.0 mmol/L (21.0-32.0); Chloride 95 mmol/L (98-108); Globulin 3.0 g/dL (2.2-4.2); Glucose 119 mg/dL (70-99); Potassium 4.2 mmol/L (3.3-5.1); Vitamin B12 554 pg/mL (180-914); Vitamin D,25 Hydroxy 53.1 ng/mL (30-100)
== END ==
LOC: OLS.WHLEAS 05:00
PROVIDERS: PCP Internal Medicine; Visit Provider Internal Medicine
DX: E11.42 Type 2 diabetes mellitus with diabetic polyneuropathy (principal); E11.22 Type 2 diabetes mellitus with diabetic chronic kidney disease; S72.141D Displaced intertrochanteric fracture of right femur, subsequent encounter for closed fracture with routine healing; Z47.89 Encounter for other orthopedic aftercare; M62.561 Muscle wasting and atrophy, not elsewhere classified, right lower leg
CPT/HCPCS: 36415; 80048; 80076; 82306; 82607; 83036; 85025

== ENCOUNTER → 2025-04-09 | Outpatient (REF) | payer MEDICARE, SELFPAY ==
--- OUTSIDE RECORDS SUMMARY | 2025-04-09 03:40 | XMS RPT_ITS | CCD ---
Author Organization [facility] ion Partnership [facility] Care Team Providers Care Revenue Enforcement Agent Name Role Phone Patricia HALL, Alanna Jacobson Unavailable Unavailable Carmen Hurt Unavailable Unavailable ISABEL Kraus, Bernarda Raymundo Unavailable Unavailabl desiree Gomez RN, Alanna Jacobson Unavailable Unavailable Carmen Hurt Unavailable Unavailable DeFinis, Harumi Y Unavailable Unavailable Carmen Hurt Unavailable Unavailable Husam Yan MD Primary Care Provider Dr. Jean Yan Primary Care Provider [phone] Dr. Jean Yan Referring Provider EMILY Foley Attending Provider Dr. Randal Macias Attending Provider Dr. Randal Macias Referring Provider Dr. Randal Macias Other Provider Husam Yan MD Primary Care Provider Husam Yan MD Primary Care Provider Husam Yan MD Primary Care Provider SCHUYLER ARREAGA MD, JEAN PIERRE Attending Unavaila JERMAINE Nash MD Consulting Unavailable GARY HOWARD MD Consulting Unavailable Husam Yan MD Primary Care Provider Podlogar JUDICIAL ASSISTANT.RADIOLOGIC TECHNOLOGY PROGRAM DIRECTOR, Lauren Unavailable Dr. Jean Yan MD Primary Care Provider Nando Wiggins MD Attending Provider Unavaila ble Bolivar DPM, Dr. Nunes Attending Provider Suraj DPM, Dr. Nunes Referring Provider Rosalie AVILA, Dr. Collier Primary Care Provider Paola BUS ATTENDANT-C, Meredith Attending Provider Rosalie AVILA, Nando Referring Provider Unavailuzma Mendoza DPM, Dr. Kelley Referring Provider Payal AVILA, Dr. Pena Referring Provider Salma Dugan [...] Provider Juliann AVILA, Dr. Wilkes Referring Provider Dr. Chung Humphreys MD Emergency Provider Enrrique AVILA, Dr. Dickerson Admit [...] Provider Christopher AVILA, Dr. Elliott Referring Provider Dr. Earl White MD Other Provider Salma Dugan Referring Provider Rosalie [...] Ag Mendoza DPM, Dr. Kelley Referring Provider Mokoie AVILA, Dr. Tee Attending Provider Dr. Jean Yan MD Referring Provider Pooja Cohen Attending Provider Alejandra DIEZ, Dr. Santana Referring Provider Alejandra DIEZ, Dr. Santana Emergency Provider Rosalie AVILA, Dr. Collier Primary Care Provider Rosalie AVILA, Nando Attending Provider Ag Mendoza DPM, Dr. Kelley Referring Provider Mookie AVILA, Dr. Tee Attending Provider Mookie AVILA, Dr. Tee Other Provider Paola TOLEDO-CMeredith Attending Provider Christopher AVILA, Dr. Elliott Attending Provider Artie AVILA, Dr. Jackson Other Provider Alejandra DIEZ, Dr. Santana Attending Provider Dr. Earl Desai DO Emergency Provider Rosalie AVILA, Dr. Collier Primary Care Provider Rosalie AVILA, Nando Attending Provider Ag Damico MD, Dr. Tee Attending Provider Dr. Randal Damico MD Referring Provider Dr. Randal Damico MD Other Provider Reji NIETO, Dr. Kelley Referring Provider Paola TOLEDO-C, Meredith Attending Provider Dr. Earl Desai DO Attending Provider Kassidy JUDICIAL ASSISTANT.RADIOLOGIC TECHNOLOGY PROGRAM DIRECTOR, Yesenia Unavailable Rosalie AVILA, Dr. Collier Primary Care Provider Dr. Randal Damico MD Attending Provider Mookie AVILA, Dr. Tee Other Provider Nando Wiggins MD Attending Provider Unavailuzma Wiggins MD, Nando Referring Provider Unavailuzma Mendoza DPM, Dr. Kelley Referring Provider Rosalie AVILA, Dr. Collier Attending Provider [phone] Grecia Duran Attending Provider Unavailable BURSLEY, CHRISTOPHER B Primary Care Unavailab le PODLOGAR, LAUREN Attending Unavailable DANILO MARTINES Referring Unavailable BURSLEY, CHRISTOPHER B Primary Care Unavailab le PODLOGAR, LAUREN Attending Unavailable BURSLEY, CHRISTOPHER B Primary Care Unavailab le PODLOGAR, LAUREN Referring Unavailable BURSLEY, CHRISTOPHER B Primary Care Unavailab le BURSLEY, CHRISTOPHER B Primary Care Unavailab le EARL DESAI Referring Unavailable HERBERT, ANGEL Attending Unavailable HERBERT, ANGEL Admitting Unavailable Rosalie AVILA, Dr. Collier Primary Care Provider Christopher AVILA, Dr. Elliott Admit Provider [phone] Earl White MD Attending Provider [phone] Dr. Earl White MD Referring Provider [phone] Dr. Randal Damico MD Other Provider Christopher AVILA, Dr. Elliott Other Provider [phone] Salma Dugan Attending Provider [phone] Randal Damico MD Attending Provider Arleen AVILA, Dr. Larry Attending Provider Dr. Nando Wiggins MD Primary Care Provider Dr. Randal Damico MD Other Provider Salma Dugan Attending Provider [phone] Nando Wiggins MD Primary Care Provider Rosalie AVILA, Nando Attending Provider UnavailNando Bui MD Referring Provider Unavailuzma Guevara NP-CMeredith Attending Provider Rosalie AVILA, Dr. Collier Primary Care Provider Nando Wiggins MD Attending Provider Unavailuzma Bacon MD, Dr. Larry Referring Provider Fabi AVILA, Beau Emergency Provider Hakan Gunter MD Attending Provider Enrrique AVILA, Dr. Dickerson Admit Provider Enrrique AVILA, Dr. Dickerson Attending Provider Enrrique AVILA, Dr. Dickerson Other Provider Lyric AVILA, Hakan Other Provider Artie AVILA, Dr. Jackson Other Provider Ulises AVILA, Dr. Jaswant Velez Attending Provider Pam AVILA, Dr. Kimberly Aguilera Other Provider Pam AVILA, Dr. Kimberly Aguilera Attending Provider Jazmín AVILA, Dr. Nazanin Reyez Attending Provider Ulises AVILA, Dr. Jaswant Velez Other Provider Rosalie AVILA, Dr. Collier Primary Care Physician Rosalie AVILA, Nando Attending Physician Unavail Nando Heller MD Referring Provider Unavailuzma Ruano BUS ATTENDANT-C, Pooja Attending Physician Paola BUS ATTENDANT-CMeredith Attending Physician Dr. Max Roberts DO Attending Physician Dr. Max Roberts DO Emergency Department Physician Dr. Earl Desai DO Attending Physician Dr. Earl Desai DO Emergency Department Physi phil Dr. Laron Bacon MD Attending Physician Beau Dunlap MD Emergency Department Physician Hakan Gunter MD Attending Physician Dr. Earl Mora DO Referring Provider Enrrique AVILA, Dr. Dickerson Admitting Physician Enrrique AVILA, Dr. Dickerson Nurse Practitioner Lyric AVILA, Hakan Nurse Practitioner Artie AVILA, Dr. Jackson Nurse Practitioner Ulises AVILA, Dr. Jaswant Velez Attending Physician Pam AVILA, Dr. Kibmerly Aguilera Nurse Practitioner Pam AVILA, Dr. Kimberly Aguilera Attending Physician Ulises AVILA, Dr. Jaswant Velez Nurse Practitioner Rosalie AVILA, Dr. Collier Referring Provider Rosalie AVILA, Dr. Collier Primary Care Physician Paola TOLEDO-Meredith Cooley Attending Physician Nando Wiggins MD Attending Physician Unavail able Rosalie AVILA, Nando Referring Provider Unavaila ble Jayla Osuna Referring Unavailable Bursley, Jean Primary Care Unavailable Earl White Attending Unavailable Oleghe OLSNando Attending Unavailabl e Bursley, Jean Primary Care Unavailable Oleghe, Efewongbe Primary Care Unavailable OleghNando Woodward Attending Unavailabl e Oleghe, Efewongbe Primary Care Unavailable OleghNando Woodward Attending Unavailabl e Oleghe, Efewongbe Primary Care Unavailable Jayla Osuna Admitting Unavailable Jayla Osuna Consulting Unavailable Margarette Godinez Attending Unavailable Chung Humphreys Referring Unavailable Juan Antonio Holden Consulting Unavailable Randal Shore Consulting Unavailable Artie, Jayaprakas Consulting Unavailable Josef Garcia Consulting Unavailable Oleghe, Efewongbe Primary Care Unavailable Jayla Osuna Attending Unavailable Jayla Osuna Admitting Unavailable Hakan Gunter Consulting Unavailable Jayla Osuna Consulting Unavailable Kimberly Orozco Attending Unavailable Artie, Jayaprakas Consulting Unavailable Pam, Kimberly Ale Consulting Unavailable Hakan Gunter Attending Unavailable Oleghe, Efewongbe Primary Care Unavailable Bursley, Jean Referring Unavailable Pooja Ruano Attending Unavailable Jayla Osuna Admitting Unavailable Bursley, Jean Primary Care Unavailable Juan Antonio Holden Attending Unavailable Warren Mendoza Consulting Unavailable Artie, Jayaprakas Consulting Unavailable Jayla Osuna Consulting Unavailable Randal Shore Consulting Unavailable Christopher, Earl Consulting Unavailable Fernando Oliveros Consulting Unavailable Joernestine, Earl Consulting Unavailable Oleghe, Efewongbe Primary Care Unavailable Christopher, Earl Referring Unavailable Siska, Randal Consulting Unavailable Christopher, Earl Admitting Unavailable Sulaiman Whiteic Attending Unavailable Artie, Jayaprakas Consulting Unavailable Warren Mendoza Referring Unavailable Randal Damico Attending Unavailable Oleghe, Efewongbe Primary Care Unavailable Warren Mendoza Referring Unavailable Des Ruelas Attending Unavailable Bursley, Jean Primary Care Unavailable Warren Mendoza Attending Unavailable Warren Mendoza Referring Unavailable Bursley, Jean Primary Care Unavailable Walpole, Earl Referring Unavailable Bursley, Jean Primary Care Unavailable Earl White Attending Unavailable Oleghe OLS, Efewongbe Attending Unavailabl desiree Garcialey, Jean Primary Care Unavailable Oleghe, Efewongbe Primary Care Unavailable Tickton BUS ATTENDANT, Meredith Attending Unavailable Oleghe, Efewongbe Primary Care Unavailable Tickton BUS ATTENDANT, Meredith Attending Unavailable Oleghe, Efewongbe Primary Care Unavailable Suellenton BUS ATTENDANT, Meredith Attending Unavailable Jaswant Montgomery Consulting Unavailable Jaswant Montgomery Admitting Unavailable Deni Shields Attending Unavailable Bursley, Jean Primary Care Unavailable Randal Shore Consulting Unavailable Tanphaichikenny, Natthavat Consulting Unavaila ble Des Ruelas Consulting Unavailable Walpole, Earl Consulting Unavailable Oleghe, Efewongbe Primary Care Unavailable Jayla Osuna Admitting Unavailable Josef Garcia Consulting Unavailable Chung Humphreys Referring Unavailable Juan Antonio Holden Attending Unavailable Artie, Jayaprakas Consulting Unavailable Jayla Osuna Consulting Unavailable Randal Shore Consulting Unavailable Juan Antonio Holden Consulting Unavailable Jayla Osuna Attending Unavailable Margarette Godinez Attending Unavailable Margarette Godinez Consulting Unavailable Oleghe, Efewongbe Primary Care Unavailable Tickton BUS ATTENDANT, Meredith Attending Unavailable Salma Cervantes Attending Unavailable Oleghe, Efewongbe Primary Care Unavailable Bursley, Jean Referring Unavailable Oleghe, Efewongbe Primary Care Unavailable Tickton BUS ATTENDANT, Meredith Attending Unavailable Oleghe, Efewongbe Primary Care Unavailable Tickton BUS ATTENDANT, Meredith Attending Unavailable Oleghe, Efewongbe Primary Care Unavailable Oleghe, Efewongbe Attending Unavailable Oleghe, Efewongbe Attending Unavailable Bursley, Jean Primary Care Unavailable Bursley, Jean Primary Care Unavailable Tickton BUS ATTENDANT, Meredith Attending Unavailable Oleghe, Efewongbe Primary Care Unavailable Zenaida Cooper Attending Unavailabl e Oleghe, Efewongbe Primary Care Unavailable Jayla Osuna Referring Unavailable Earl White Attending Unavailable Oleghe OLS, Efewongbe Attending Unavailabl [...] Damico Attending Unavailable Warren Mendoza Referring Unavailable Des Ruelas Attending Unavailable Des Ruelas [...] Oleghe, Efewongbe Primary Care Unavailable Jayla Osuna Referring Unavailable Earl White Attending Unavailable Oleghe, Efewongbe Primary Care Unavailable Randal Damico Consulting Unavailable Randal Damico Attending Unavailable Randal Damico Referring Unavailable Oleghe, Efewongbe Primary Care Unavailable Siska, Randal Consulting Unavailable Siska Randal Attending Unavailable Warren Mendoza Referring Unavailable Oleghe, Efewongbe Primary Care Unavailable Sisdhaval, Randal Consulting Unavailable Mookie Randal Attending Unavailable Warren Mendoza Referring Unavailable Oleghe, Efewongbe Primary Care Unavailable Siska, Randal Consulting Unavailable Sisdhaval, Randal Attending Unavailable Siska, Randal Referring Unavailable Warren Mendoza Consulting Unavailable Warren Mendoza Referring Unavailable Salma Cervantes Attending Unavailable Bursley, Jean Primary Care Unavailable Christopher Earl Consulting Unavailable Earl White Attending Unavailable Christopher, Earl Referring Unavailable Bursley, Jean Primary Care Unavailable Jayla Osuna Admitting Unavailable Bursley, Jean Primary Care Unavailable Earl White Attending Unavailable Warren Mendoza Consulting Unavailable Manuel Alva Consulting Unavailable Jayla Osuna Consulting Unavailable Randal Shore Consulting Unavailable Earl White Consulting Unavailable Fernando Oliveros Consulting Unavailable Oleghe, Efewongbe Primary Care Unavailable Jayla Osuna Consulting Unavailable Jayla Osuna Admitting Unavailable Jayla Osuna Attending Unavailable Chung Humphreys Referring Unavailable Michelle Montgomerys Agustin Admitting Unavailable Nahum Montgomeryolas Agustin Consulting Unavailable Salma Cervantes Attending Unavailable Deni Shields Referring Unavailable Bursley, Jean Primary Care Unavailable Randal Shore Consulting Unavailable Tanphaichitr, Natthavat Consulting UnavailDes Mccauley Consulting Unavailable Earl White Consulting Unavailable Deni Shields Consulting Unavailable Nahum Montgomeryolas F Attending Unavailable Oleghe, Efewongbe Primary Care Unavailable Sisdhaval Randal Consulting Unavailable Sisdhaval Randal Attending Unavailable Siska Randal Referring Unavailable Oleghe, Efewongbe Primary Care Unavailable Warren Mendoza Referring Unavailable SisRandal puentes Consulting Unavailable Sisdhaval Randal Attending Unavailable Oleghe, Efewongbe Primary Care Unavailable Arleen, Harrold Referring Unavailable Shameka Baconl Attending Unavailable Oleghe, Efewongbe Primary Care Unavailable Meredith Guevara NP Attending Unavailable Warren Mendoza Referring Unavailable Oleghe, Efewongbe Primary Care Unavailable Randal Damico Attending Unavailable Oleghe OLS, Efewongbe Attending Unavailabl e Oleghe, Efewongbe Primary Care Unavailable Oleghe OLS, Efewongbe Attending Unavailabl e Oleghe, Efewongbe Primary Care Unavailable Jaswant Montgomery Attending Unavailable Oleghe, Efewongbe Primary Care Unavailable Jayla Osuna Admitting Unavailable Hakan Gunter Consulting Unavailable Jayla Osuna Consulting Unavailable Manuel Alva Consulting Unavailable Kimberly Orozco Consulting Unavailable Oleghe OLS, Efewongbe Attending Unavailabl [...] e Oleghe OLS, Efewongbe Referring Unavailabl e Oleghe, Efewongbe Primary Care Unavailable Oleghe OLS, Efewongbe Attending Unavailabl e Oleghe OLS, Efewongbe Referring Unavailabl e Oleghe, Efewongbe Primary Care Unavailable Oleghe OLS, Efewongbe Attending Unavailabl e Oleghe, Efewongbe Primary Care Unavailable Oleghe OLS, Efewongbe Attending Unavailabl e Oleghe, Efewongbe Primary Care Unavailable Oleghe OLS, Efewongbe Attending Unavailabl e Oleghe, Efewongbe Primary Care Unavailable Oleghe OLS, Efewongbe Attending UnavailJaswant Chavez Attending Unavailable Jaswant Montgomery Consulting Unavailable Fernando Oliveros Attending Unavailable Cervantes, Salma Referring Unavailable Earl White Attending Unavailable Cervantes, Salma Referring Unavailable Oleghe, Efewongbe Primary Care Unavailable Earl White Attending Unavailable Deni Shields Referring Unavailable Cervantes, Salma Attending Unavailable Bursley, Jean Primary Care Unavailable Cervantes, Salma Attending Unavailable Oleghe, Efewongbe Primary Care Unavailable Oleghe, Efewongbe Referring Unavailable Bursley, Jean Primary Care Unavailable Itz Mahan Referring Unavailable Warren Jackson Attending Unavailable Oleghe, Efewongbe Primary Care Unavailable Paola BUS ATTENDANT, Meredith Attending Unavailable Oleghe, Efewongbe Primary Care Unavailable Arleen Laron Referring Unavailable ArleenLincolnLaron Attending Unavailable Cervantes, Salma Attending Unavailable Oleghe, Efewongbe Primary Care Unavailable Oleghe, Efewongbe Referring Unavailable Oleghe, Efewongbe Primary Care Unavailable Paola TOLEDO, Meredith Attending Unavailable Oleghe, Efewongbe Primary Care Unavailable Oleghe, Efewongbe Referring Unavailable Hakan Gunter Attending Unavailable Oleghe, Efewongbe Primary Care Unavailable Lincoln Baconril Attending Unavailable Cervantes, Salma Attending Unavailable Oleghe, Efewongbe Primary Care Unavailable Oleghe, Efewongbe Referring Unavailable Warren Mendoza Referring Unavailable Oleghe, Efewongbe Primary Care Unavailable Randal Damico Consulting Unavailable Randal Damico Attending Unavailable Oleghe, Efewongbe Primary Care Unavailable Hakan Gunter Attending Unavailable Earl Mora Referring Unavailable Oleghe OLS, Efewongbe Attending Unavailabl e Bursley, Jean Primary Care Unavailable Oleghe OLS, Efewongbe Attending Unavailabl e Bursley, Jean Primary Care Unavailable Oleghe, Efewongbe Primary Care Unavailable Cervantes Salma Attending Unavailable Cervantes, Salma Referring Unavailable Oleghe, Efewongbe Primary Care Unavailable Fernando Oliveros Admitting Unavailable Fernando Oliveros Attending Unavailable Artie, Juanitoprakas Consulting Unavailable Oleghe, Efewongbe Primary Care Unavailable Meredith Guevara NP Attending Unavailable Oleghe, Efewongbe Primary Care Unavailable Fernando Oliveros Admitting Unavailable Fernando Oliveros Attending Unavailable Artie, Jayaprakas Consulting Unavailable Fernando Oliveros Consulting Unavailable Oleghe, Efewongbe Primary Care Unavailable Oleghe, Efewongbe Attending Unavailable Oleghe OLS, Efewongbe Attending Unavailabl [...] Care Unavailable Oleghe, Efewongbe Primary Care Unavailable Miri Scott Consulting Unavailable Earl Desai Attending Unavailable Oleghe, Efewongbe Primary Care Unavailable Max Roberts Referring Unavailable Max Roberts Attending Unavailable Oleghe OLS, Efewongbe Referring Unavailabl e Oleghe OLS, Efewongbe Attending Unavailabl e Oleghe, Efewongbe Primary Care Unavailable Oleghe OLS, Efewongbe Attending Unavailabl e Oleghe, Efewongbe Primary Care Unavailable Bursley, Jean Primary Care Unavailable Yunior Davey Attending Unavailable Oleghe, Efewongbe Primary Care Unavailable Walpole, Earl Referring Unavailable Siska, Randal Consulting Unavailable Christopher, Earl Admitting Unavailable Christopher, Earl Attending Unavailable Walpole, Earl Consulting Unavailable Sisdhaval Randal Attending Unavailable Artie, Jayaprakas Consulting Unavailable Salma Cervantes Attending Unavailable Walpole, Earl Referring Unavailable Siska, Randal Consulting Unavailable Oleghe, Efewongbe Primary Care Unavailable Christopher, Earl Admitting Unavailable Artie, Jayaprakas Consulting Unavailable Christopher, Earl Consulting Unavailable Siska, Randal Attending Unavailable Christopher, Earl Attending Unavailable Wes Cervantesison Attending Unavailable Fernando Oliveros Referring Unavailable Deni Shields Attending Unavailable Jopperi, Earl Attending Unavailable Jopperi, Earl Consulting Unavailable Juan Antonio Holden Attending Unavailable Navin, Juan Antonio Consulting Unavailable Jayla Osuna Attending Unavailable Bursley, Jean Primary Care Unavailable Jayla Osuna Attending Unavailable Oleghe, Efewongbe Primary Care Unavailable Laron Bacon Attending Unavailable Oleghe, Efewongbe Primary Care Unavailable Tickton BUS ATTENDANT, Meredith Attending Unavailable Oleghe, Efewongbe Primary Care Unavailable Paola BUS ATTENDANT, Meredith Attending Unavailable Oleghe, Efewongbe Primary Care Unavailable Paola BUS ATTENDANT, Meredith Attending Unavailable Oleghe, Efewongbe Primary Care Unavailable Oleghe, Efewongbe Referring Unavailable Hakan Gunter Attending Unavailable Oleghe, Efewongbe Primary Care Unavailable Laron Bacon Attending Unavailable Olee, Efewongbe Primary Care Unavailable Randal Damico Attending Unavailable Warren Mendoza Referring Unavailable FranklinEric Attending Unavailable Olee, Efewongbe Primary Care Unavailable Oleghe, Efewongbe Primary Care Unavailable Alicia Loo Attending Unavailable Olee, Efewongbe Primary Care Unavailable Des Garcia Attending Unavailable Allergies Allergy Classification Reported Allergen(s) Allergy Type Date of Onset Reaction(s) Facility (20 sources) atenolol; Translations: [ATENOLOL] allergy to substance 0 GI Upset [facility] Work Phone: (17 sources) pioglitazone drug allergy 7 fatigue [facility] Work Phone: (12 sources) simvastatin drug allergy 7 myalgia [facility] Work Phone: (12 sources) SITagliptin drug allergy 7 [facility] Work Phone: (20 sources) pioglitazone; Translations: [PIOGLITAZONE HCL] Drug Allergy 7 Other: See Comments [facility] Work Phone: (20 sources) Simvastatin; Translations: [SIMVASTATIN] Drug Allergy 7 myalgia [facility] Work Phone: (20 sources) SITagliptin; Translations: [SITAGLIPTIN] Drug Allergy 4 Other: See Comments [facility] (20 sources) pioglitazone Drug Allergy [address] [facility] (13 sources) semaglutide; Translations: [SEMAGLUTIDE] Drug Allergy 4 GI Upset [facility] (1 source) pioglitazone Drug Allergy 5 [facility] (1 source) Simvastatin Drug Allergy 5 [facility] (1 source) SITagliptin Drug Allergy 5 [facility] Medications Current Medications Medication Drug [...] TBEC One tablet by mouth daily ASPIRIN [id number] Bernarda Kraus RN Start: 04-06-2013 take 1 [...] mg / menthol 3.6 mg oral lozenge (20 sources) Standardized Chemical Allergen Start: 07-20-2024 Blood-Glucose [...] Ordered calcium acetate 667 mg oral capsule (12 sources) Start: 01-25-2025 End: 02-15-2025 cholecalciferol 0.125 mg oral capsule (20 sources) Vitamin D Start: 07-13-2024 Start: 05-02-2020 End: 07-13-2024 Start: 10-27-2016 take 1 tablet by davin th once daily EQL VITAMIN D3 CAPS One tablet by mouth daily CHOLECALCIFEROL CAPS [id number] Laron Bacon MD take 1 tablet by [...] Crill Oil, Take 1 ta blet daily. 0.5 ml dulaglutide 1.5 mg/ml auto-injector (7 sources) GLP-1 Receptor Agonist Start: 01-25-2025 flash glucose [...] Date: 09/07/23 Status: Ordered 3 ml insulin lispro 100 unt/ml pen injector (20 sources) Insulin Analog Start: 02-15-2025 Start: 04-24-2024 End: 01-25-2025 ketorolac tromethamine 5 mg/ml ophthalmic solution (1 source) Nonsteroidal Anti-inflammatory Drug, Cyclooxygenase Inhibitor Start: 09-07-2023 ketorolac 0.5% ophthalmic solution Dose = 1 drop(s), Eye, right, QID, 0 Refill(s) Start Date: 09/07/23 Status: Ordered latanoprostene bunod 0.24 mg/ml ophthalmic solution (1 source) Start: 09-07-2023 Vyzulta 0.024% ophthalmic solution Dose = 1 [...] End: 06-08-2024 albuterol 0.83 mg/ml inhalation solution (20 sources) beta2-Adrenergic Agonist Start: 07-20-2024 End: 01-25-2025 amLODIPine 5 mg oral tablet (20 sources) Dihydropyridine Calcium Channel Prakash Start: 09-24-2022 End: 10-07-2023 Start: 05-12-2017 End: 05-02-2020 Start: 10-26-2016 take 1 tablet by davin th once daily AMLODIPINE BESYLATE 10 MG TABS One tablet by mouth daily AMLODIPINE BESYLATE [id number] Bernarda Kraus RN amoxicillin 250 mg / [...] TABS One tablet by mouth daily ATENOLOL [id number] Bernarda Kraus RN B COMPLEX VITAMINS (2 sources) Start: 10-27-2016 take 1 tablet by mouth once daily B COMPLEX-B12 TABS One tablet by mouth daily B COMPLEX VITAMINS [id number] Laron Bacon MD B COMPLEX VITAMINS (3 sources) Start: 10-27-2016 take 1 tablet by mouth once daily B COMPLEX-B12 TABS One tablet by mouth daily B COMPLEX VITAMINS [id number] Laron Bacon MD cephalexin 500 mg oral capsule (20 sources) Cephalosporin Antibacterial Start: 10-13-2020 End: 10-18-2020 cinnamon bark 500 mg oral capsule (7 sources) Start: 10-26-2016 take 1 tablet by mouth once daily CINNAMON 500 MG CAPS One tablet by mouth daily CINNAMON [id number] Bernarda Kraus RN clopidogrel 75 mg oral tablet (20 sources) P2Y12 Platelet Inhibitor Start: 07-02-2024 End: 10-17-2024 Start: 04-24-2024 End: 06-04-2024 docusate sodium 50 mg / ino osides, half-way 8.6 mg oral tablet (20 sources) Start: 04-24-2024 End: 01-29-2025 doxycycline hyclate 100 mg o ral capsule [...] on above: 2 Each four times da rpatima. folic acid 0.4 mg / vitamin b12 0.5 mg oral tablet (20 sources) Vitamin B12 Start: 10-21-2021 End: 11-18-2021 Start: 10-21-2021 take 1 tablet by davin th once daily Vitamin P66-Xrmwr Acid Active 1 TABLET PO DAILY October [...] TABS One tablet by mouth daily GLIPIZIDE [id number] Bernarda Kraus RN Comment on above: Take 1 tablet by davin th twice daily before meals. heparin sodium, porcine 5000 unt/ml injectable solution (20 sources) Unfractionated Heparin, Anti-coagulant Start: 07-20-2024 End: 10-17-2024 hydroCHLOROthiazide 25 mg or al tablet (20 sources) Thiazide Diuretic Start: 05-12-2017 End: 12-03-2018 Start: 10-27-2016 take 1 tablet by davin th once daily HYDROCHLOROTHIAZIDE 25 MG TABS One tablet by mouth daily HYDROCHLOROTHIAZIDE [id number] Laron Bacon MD sodium hypochlorite 2.5 mg/ml topical solution (20 sources) Start: 07-20-2024 End: 09-02-2024 3 ml insulin glargine 100 unt/ml pen injector (20 sources) Insulin Analog Start: 09-07-2023 Lantus Solosta r Pen 100 [...] Inject 25 Units subc utaneously once daily. krill oil (5 sources) Start: 7 take 1 tablet by mouth once daily HM MEGAKRILL CAPS One tablet by mouth daily KRILL OIL CAPS [id number] Laron Bacon MD 3 ml liraglutide 6 mg/ml pen injector (20 sources) GLP-1 Receptor Agonist Start: 7 End: 8 Start: 05-12-2017 End: 05-04-2018 Liraglutide Discontinued SC 6 60 May 12, 2017 1:00am May 04, 2018 10:45am Start: 10-26-2016 VICTOZA TERRA jacobson s directed LIRAGLUTIDE SOLN [id number] Bernarda Kraus RN lisinopril 40 mg oral tablet (20 sources) Angiotensin Converting Enzyme Inhibitor Start: 05-12-2017 End: 05-02-2020 Start: 10-26-2016 take 1 tablet by davin th once daily ZESTRIL 40 MG TABS One tablet by mouth daily LISINOPRIL [id number] Bernarda Kraus RN menthol 0.0044 mg/mg / zinc oxide 0.206 mg/mg topical ointment (5 sources) Start: 07-20-2024 End: 01-25-2025 methylsulfonylmethane (5 sources) Start: 10-27-2016 take 1 tablet by mouth once daily [facility] MSM CAPS One tablet by mouth daily METHYLSULFONYLMETHANE CAPS [id number] Laron Bacon MD metoprolol tartrate 25 mg oral tablet (20 sources) beta-Adrenergi c Prakash Start: 04-18-2020 End: 05-02-2020 miconazole nitrate 20 mg/ml topical cream (20 sources) Azole Antifungal Start: 04-24-2024 End: 05-10-2024 nystatin [id number] unt/ml topical cream (20 sources) Polyene Antifungal Start: 05-22-2024 End: 08-28-2024 oxyCODONE hydrochloride 5 mg oral tablet (20 sources) Opioid Agonist Start: 01-29-2025 End: 03-01-2025 Start: 07-10-2024 End: 09-21-2024 0.25 mg, 0.5 mg dose 1.5 ml semaglutide 1.34 mg/ml pen injector (20 sources) Start: 01-04-2023 End: 07-12-2024 semaglutide (OZEMPIC) 0.25 m g or 0.5 mg(2 mg/1.5 mL) pen Indications: [...] Date Episodic/Chronic Acute and unspecified renal failure (20 sources) [id number] renal failure; Translations: [Acute kidney failure, unspecified] [...] Chronic Complication of device; implant or graft (20 sources) Dialysis finding; Translations: [Other specified complication of vascular prosthetic devices, implants and grafts, initial encounter] Chronic Complication of device; implant or graft (20 sources) Malfunction of peritoneal dialysis catheter; Translations: [...] 6 02-28-2020 Chronic Diabetes mellitus without complication (1 source) Type 2 diabetes mellitus without complications; Translations: [Type 2 diabetes mellitus without complications] Onset: 5 Chronic Disorders of lipid metabolism (20 sources) Hyperlipidemia; Translations: [Mixed hyperlipidemia] Onset: 6 10-26-2016 Chronic E Codes: Fall (20 sources) Fall; Translations: [Unspecified fall, initial encounter] Onset: 5 11-08-2024 Episodic Essential hypertension (20 sources) Hypertensive disorder; Translations: [Essential hypertension] Onset: 5 10-26-2016 Chronic Fracture of neck of femur (hip) (20 sources) Closed fracture of hip; Translations: [Fracture of unspecified part of neck of unspecified femur, initial encounter for closed fracture] Onset: 5 01-25-2025 Episodic Gangrene (20 sources) Atherosclerosis of [place] arteries of extremities with gangrene, right leg; Translations: [Atherosclerosis of [place] artery of right leg with gangrene] Onset: [...] Open wounds of head; neck; and trunk (16 sources) Laceration of nose; Translations: [Laceration without foreign body of nose, initial encounter] 11-08-2024 Episodic Other acquired deformities (1 source) Deformity of foot; Translations: [Unspecified acquired deformity of right lower leg] 03-04-2021 Episodic Other aftercare (20 sources) Surgical follow-up; Translations: [Encounter for surgical aftercare following surgery on the circulatory system] 06-20-2024 Episodic Other aftercare (14 sources) Long-term current use of anticoagulant; Translations: [senior living (current) use of anticoagulants] 01-25-2025 Episodic Other aftercare (1 source) Encounter for other orthopedic aftercare; Translations: [Encounter for other orthopedic aftercare] Onset: 5 Episodic Other aftercare (2 sources) Encounter for orthopedic aftercare following surgical amputation; Translations: [Encounter for orthopedic aftercare following surgical amputation] Onset: 5 Episodic Other bone disease and musculoskeletal deformities (20 sources) History of amputation of right foot; Translations: [Acquired absence of right foot] 06-20-2024 Chronic Other bone disease and musculoskeletal deformities (2 sources) Acquired absence of right leg below knee; 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] Onset: 5 Chronic Other bone disease and musculoskeletal deformities (1 source) Acquired absence of right great toe; Translations: [Acquired absence of right great toe] Onset: 5 Chronic Other circulatory disease (20 sources) Arteriovenous fistula; Translations: [Arteriovenous fistula, acquired] 10-17-2024 Chronic Other circulatory disease (1 source) Other specified peripheral vascular diseases; Translations: [Other specified peripheral vascular diseases] Onset: 5 Chronic Other circulatory disease (20 sources) Electrocardiogram abnormal; Translations: [Abnormal electrocardiogram [ECG] [EKG]] Onset: 7 10-26-2016 Episodic Other circulatory disease (20 sources) Ischemic toe; Translations: [Other disorder of circulatory system] 05-18-2024 Episodic Other circulatory disease (1 source) Other disorder of circulatory system; Translations: [Other disorder of circulatory system] Onset: 5 Episodic Other connective tissue disease (20 sources) Swelling of bilateral lower limbs; Translations: [Other specified soft tissue disorders] 04-14-2024 Episodic Other connective tissue disease (1 source) Pain in left foot; Translations: [Pain in left foot] 06-27-2023 Episodic Other connective tissue disease (6 sources) Pain in right foot; Translations: [Pain in right foot] 06-27-2023 Episodic Other connective tissue disease (20 sources) Foot pain; Translations: [Pain in right foot] 07-28-2024 Episodic Other connective tissue disease (2 sources) Muscle wasting and atrophy, not elsewhere classified, right lower leg; Translations: [Muscle wasting and atrophy, not elsewhere classified, right lower leg] Onset: 5 Episodic Other connective tissue disease (1 source) Muscle wasting and atrophy, not elsewhere classified, left lower leg; Translations: [Muscle wasting and atrophy, not elsewhere classified, left lower leg] Onset: 5 Episodic Other diseases of kidney and ureters (20 sources) Hyperparathyroidism due to renal insufficiency; 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] Onset: 3 02-21-2023 Chronic Other injuries and conditions due to external causes (1 source) At high risk for fall; Translations: [History of falling] 12-06-2022 Episodic Other injuries and conditions due to external causes (16 sources) Closed injury of head; Translations: [Unspecified injury of head, initial encounter] 11-08-2024 Episodic Other lower respiratory disease (20 sources) Dyspnea; Translations: [Dyspnea, unspecified] 06-23-2020 Episodic Other nervous system disorders (20 sources) Acute postoperative pain; Translations: [Other acute postprocedural pain] 06-06-2024 Episodic Other non-traumatic joint disorders (1 source) Pain in right hip; Translations: [Pain in right hip] Onset: 5 Episodic Other nutritional; endocrine; and metabolic disorders [...] Resolved: 0 07-25-2017 Episodic Residual codes; unclassified (20 sources) H/O: major vascular surgery; Translations: [Other specified postprocedural states] 12-26-2020 Episodic Skin and subcutaneous tissue infections (20 sources) Infection of foot; Translations: [Local infection of the skin and subcutaneous tissue, unspecified] Onset: 5 04-14-2024 Episodic Unclassified (4 sources) Long-term drug therapy; Translations: [Other oil heaterman (current) drug therapy] Onset: 7 10-26-2016 Past or Other Problems Problem Classification Problem Date Documented Date Episodic/Chronic Bacterial infection; unspecified site (20 sources) Bacteremia due to Methicillin resistant Staphylococcus aureus; Translations: [Bacteremia] Onset: 07-22-2024 07-16-2024 Episodic Conditions associated with dizziness or vertigo (20 sources) Dizziness; Translations: [Dizziness and giddiness] Onset: [...] 09-22-2011 Episodic Other aftercare (3 sources) Other [facility] (current) drug therapy; Translations: [Other oil heaterman (current) drug therapy] Onset: 10-26-2016 10-26-2016 Episodic Other aftercare (1 source) senior living (current) use of insulin; Translations: [Type 2 [...] [Pain in right foot] Onset: 07-22-2024 Episodic Other injuries and conditions due to external causes (1 source) Encounter for examination and observation following other accident; Translations: [Encounter for examination and observation following other accident] Onset: 11-14-2024 Episodic Residual codes; unclassified (20 sources) Noncompliance with dietary regimen; Translations: [Patient's noncompliance with dietary regimen] Onset: 07-07-2015 07-07-2015 Episodic Residual codes; unclassified (14 sources) Noncompliance with therapeutic regimen; Translations: [Noncompliance with diet and medication regimen] Onset: 04-17-2013 Resolved: 11-18-2016 11-18-2016 Episodic Residual codes; unclassified (1 source) Localized edema; Translations: [Lower extremity edema] Onset: 07-25-2017 Episodic Residual codes; unclassified (2 sources) Altered mental status, unspecified; Translations: [Altered mental status, unspecified] Onset: 09-12-2024 Episodic Results Test Name Value Interpretation Reference Range Facility Femur Min 2 Viewson 03-29-20 25 Femur Min [address] [facility] Orthopedic Visit Reporton Orthopedic Visit Report Normal [facility] Absolute lymphocyte countOrd ered By: Nando Wiggins on 03-12-2025 Lymphocytes Auto (Unsp spec) [#/Vol] 1.67 10*3/uL 0.83-4.51 [facility] Anion gap in Serum or Plasma Ordered By: Nando Wiggins on 03-12-2025 Anion gap [Moles/Vol] 13 mmol/L 5-15 [facility] Automated lymphocyte count a s percentage of total leukocytesOrdered By: Nando Wiggins on 03-12-2025 Lymphocytes/100 WBC Auto (Unsp spec) 21.9 % 19-41 [facility] BUN/creatinine ratioOrdered By: Nando Wiggins on 03-12-2025 Urea nitrogen/Creatinine [Mass ratio] 7.8 mg/mg Low 10-20 [facility] Basophil percentageOrdered B y: Nando Wiggins on 03-12-2025 Basophils/100 WBC (Bld) 0.8 % 0-1 [facility] Bilirubin directOrdered By: Nando Wiggins on 03-12-2025 Bilirubin.direct [Mass/Vol] 0.13 mg/dL 0.00-0.30 [facility] Bilirubin, totalOrdered By: Nando Wiggins on 03-12-2025 Bilirubin [Mass/Vol] 0.41 mg/dL 0.00-1.30 [facility] Carbon dioxide, total [Moles /volume] in Central venous bloodOrdered By: Nando Wiggins on 03-12-2025 CO2 [Moles/Vol] 27.0 mmol/L 21.0-32.0 [facility] Chloride assayOrdered By: Kathie Wiggins on 03-12-2025 Chloride [Moles/Vol] 95 mmol/L Low 98-108 [facility] Eosinophil percentageOrdered By: Nando Wiggins on 03-12-2025 Eosinophils/100 WBC (Bld) 3.1 % 0-5 [facility] Erythrocyte distribution wid th ratioOrdered By: Nando Wiggins on 03-12-2025 Erythrocyte distribution width (RBC) [Ratio] 15.5 % High 11.6-14.6 [facility] Erythrocyte distribution wid th standard deviationOrdered By: Nando Wiggins on 03-12-2025 Erythrocyte distribution width (RBC) [Ratio] 55.2 fl High 35.1-43.9 [facility] Glomerular filtration rate ( GFR) estimation/1.73 sq m using serum, plasma, or whole bOrdered By: Nando Wiggins on 03-12-2025 GFR/1.73 sq M.predicted among non-blacks MDRD (S/P/Bld) [Vol rate/Area] 8 mL/min/{1.73_m2} Low >60 [facility] Hematocrit Auto (Bld) [Volum e fraction]Ordered By: Nando Wiggins on 03-12-2025 Hematocrit (Bld) [Volume fraction] 36.5 % Low 40-54 [facility] Hemoglobin A1c percentageOrd ered By: Nando Wiggins on 03-12-2025 HbA1c (Bld) [Mass fraction] 6.6 % High <5.7 [facility] Hemoglobin measurementOrdere d By: Nando Wiggins on 03-12-2025 Hemoglobin (Bld) [Mass/Vol] 11.8 g/dL Low 13.0-16.5 [facility] Immature granulocytes/100 WB C Auto (Bld)Ordered By: Nando Wiggins on 03-12-2025 Immature granulocytes/100 WBC (Bld) 0.100 % 0.0-0.9 [facility] MCV (mean corpuscular volume ) determinationOrdered By: Nando Wiggins on 03-12-2025 MCV (RBC) [Entitic vol] 97.6 fL High 80-94 [facility] Mean corpuscular hemoglobin (MCH) determinationOrdered By: Nando Wiggins on 03-12-2025 MCH (RBC) [Entitic mass] 31.6 pg 27.0-32.0 [facility] Monocyte percentageOrdered B y: Nando Wiggins on 03-12-2025 Monocytes/100 WBC (Bld) 9.4 % 0-10 [facility] Neutrophil percentageOrdered By: Nando Wiggins on 03-12-2025 Neutrophils/100 WBC (Bld) 64.7 % 47-70 [facility] No Panel InformationOrdered By: Nando Wiggins on 03-12-2025 18 U/L <38 [facility] Platelet countOrdered By: Kathie Wiggins on 03-12-2025 Platelets (Bld) [#/Vol] 179 10*3/uL 150-450 [facility] Potassium measurement (mass/ volume)Ordered By: Nando Wiggins on 03-12-2025 Potassium (Unsp spec) [Mass/Vol] 4.2 mmol/L 3.3-5.1 [facility] RBC Auto (Bld) [#/Vol]Ordere d By: Nando Wiggins on 03-12-2025 RBC (Bld) [#/Vol] 3.74 10*6/uL Low 4.6-6.2 [facility] Serum creatinine measurement (mass/volume)Ordered By: Nando Wiggins on 03-12-2025 Creatinine [Mass/Vol] 6.36 mg/dL High 0.70-1.20 [facility] Serum globulin measurementOr dered By: Nando Wiggins on 03-12-2025 Globulin (S) [Mass/Vol] 3.0 g/dL 2.2-4.2 [facility] Serum glucose measurement (m ass/volume)Ordered By: Nando Wiggins on 03-12-2025 Glucose [Mass/Vol] 119 mg/dL High 70-99 [facility] Serum or plasma alanine hawkins otransferase (ALT) measurementOrdered By: Nando Wiggins on 03-12-2025 ALT [Catalytic activity/Vol] 8 U/L <47 [facility] Serum or plasma albumin lilli urement (mass/volume)Ordered By: Nando Wiggins on 03-12-2025 Albumin [Mass/Vol] 3.6 g/dL 3.4-4.8 [facility] Serum or plasma alkaline penelope sphatase measurementOrdered By: Nando Wiggins 03-12-2025 ALP [Catalytic activity/Vol] 67 U/L 40-129 [facility] Serum or plasma calcium lilli urement (mass/volume)Ordered By: Nando Wiggins on 03-12-2025 Calcium [Mass/Vol] 9.0 mg/dL 7.6-11.0 [facility] Serum or plasma urea nitroge n measurement (mass/volume)Ordered By: Nando Wiggins on 03-12-2025 Urea nitrogen [Mass/Vol] 49 mg/dL High 4-19 [facility] Sodium levelOrdered By: Deb Wiggins on 03-12-2025 Sodium [Moles/Vol] 135 mmol/L 133-145 [facility] Total proteinOrdered By: Sinan Wiggins on 03-12-2025 Protein [Mass/Vol] 6.6 g/dL 5.9-8.4 [facility] Vitamin B12 ser/plasOrdered By: Nando Meekcheko on 03-12-2025 Cobalamin (Vitamin B12) [Mass/Vol] 554 pg/mL 180-914 [facility] White blood cell (WBC) count Ordered By: Nando Meekcheko on 03-12-2025 WBC (Bld) [#/Vol] 7.6 10*3/uL 4.4-11.0 [facility] Absolute lymphocyte countOrd ered By: Nando Wiggins on 03-07-2025 Lymphocytes Auto (Unsp spec) [#/Vol] 1.85 10*3/uL 0.83-4.51 [facility] Anion gap in Serum or Plasma Ordered By: Nando Meekcheko on 03-07-2025 Anion gap [Moles/Vol] 15 mmol/L 5-15 [facility] Automated lymphocyte count a s percentage of total leukocytesOrdered By: Kathiebiancasrinathwolf Edenlakshmidesiree on 03-07-2025 Lymphocytes/100 WBC Auto (Unsp spec) 25.7 % 19-41 [facility] BUN/creatinine ratioOrdered By: Nando Meeklakshmidesiree on 03-07-2025 Urea nitrogen/Creatinine [Mass ratio] 7.7 mg/mg Low 10-20 [facility] Basophil percentageOrdered B y: Nando Meekcheko on 03-07-2025 Basophils/100 WBC (Bld) 0.8 % 0-1 [facility] Carbon dioxide, total [Moles /volume] in Central venous bloodOrdered By: Kathiebiancasrinathwolf Edenlakshmidesiree on 03-07-2025 CO2 [Moles/Vol] 25.8 mmol/L 21.0-32.0 [facility] Chloride assayOrdered By: Kathie Wiggins on 03-07-2025 Chloride [Moles/Vol] 95 mmol/L Low 98-108 [facility] Eosinophil percentageOrdered By: Nando Wiggins on 03-07-2025 Eosinophils/100 WBC (Bld) 3.5 % 0-5 [facility] Erythrocyte distribution wid th ratioOrdered By: Nando Wiggins on 03-07-2025 Erythrocyte distribution width (RBC) [Ratio] 16.4 % High 11.6-14.6 [facility] Erythrocyte distribution wid th standard deviationOrdered By: Nando Wiggins on 03-07-2025 Erythrocyte distribution width (RBC) [Ratio] 59.2 fl High 35.1-43.9 [facility] Glomerular filtration rate ( GFR) estimation/1.73 sq m using serum, plasma, or whole bOrdered By: Nando Wiggins on 03-07-2025 GFR/1.73 sq M.predicted among non-blacks MDRD (S/P/Bld) [Vol rate/Area] 9 mL/min/{1.73_m2} Low >60 [facility] Hematocrit Auto (Bld) [Volum e fraction]Ordered By: Nando Wiggins on 03-07-2025 Hematocrit (Bld) [Volume fraction] 36.3 % Low 40-54 [facility] Hemoglobin measurementOrdere d By: Nando Wiggins on 03-07-2025 Hemoglobin (Bld) [Mass/Vol] 11.5 g/dL Low 13.0-16.5 [facility] Immature granulocytes/100 WB C Auto (Bld)Ordered By: Nando Wiggins on 03-07-2025 Immature granulocytes/100 WBC (Bld) 0.600 % 0.0-0.9 [facility] MCV (mean corpuscular volume ) determinationOrdered By: Nando Wiggins on 03-07-2025 MCV (RBC) [Entitic vol] 99.2 fL High 80-94 [facility] Mean corpuscular hemoglobin (MCH) determinationOrdered By: Nando Wiggins 03-07-2025 MCH (RBC) [Entitic mass] 31.4 pg 27.0-32.0 [facility] Monocyte percentageOrdered B y: Nando Wiggins on 03-07-2025 Monocytes/100 WBC (Bld) 12.8 % High 0-10 [facility] Neutrophil percentageOrdered By: Nando Wiggins on 03-07-2025 Neutrophils/100 WBC (Bld) 56.6 % 47-70 [facility] Platelet countOrdered By: Kathie Wiggins on 03-07-2025 Platelets (Bld) [#/Vol] 148 10*3/uL Low 150-450 [facility] Potassium measurement (mass/ volume)Ordered By: Nando Meekcheko on 03-07-2025 Potassium (Unsp spec) [Mass/Vol] 4.4 mmol/L 3.3-5.1 [facility] RBC Auto (Bld) [#/Vol]Ordere d By: Nando Wiggins on 03-07-2025 RBC (Bld) [#/Vol] 3.66 10*6/uL Low 4.6-6.2 [facility] Serum creatinine measurement (mass/volume)Ordered By: Nando Wiggins on 03-07-2025 Creatinine [Mass/Vol] 5.90 mg/dL High 0.70-1.20 [facility] Serum glucose measurement (m ass/volume)Ordered By: Nando Meekcheko on 03-07-2025 Glucose [Mass/Vol] 128 mg/dL High 70-99 [facility] Serum or plasma calcium lilli urement (mass/volume)Ordered By: Kathiebiancalilian Meekcheko on 03-07-2025 Calcium [Mass/Vol] 8.5 mg/dL 7.6-11.0 [facility] Serum or plasma urea nitroge n measurement (mass/volume)Ordered By: Nando Meeklakshmidesiree on 03-07-2025 Urea nitrogen [Mass/Vol] 46 mg/dL High 4-19 [facility] Sodium levelOrdered By: Deb quintana Meeklakshmidesiree on 03-07-2025 Sodium [Moles/Vol] 136 mmol/L 133-145 [facility] White blood cell (WBC) count Ordered By: Nando Wiggins on 03-07-2025 WBC (Bld) [#/Vol] 7.2 10*3/uL 4.4-11.0 [facility] Absolute lymphocyte countOrd ered By: Nando Wiggins on 02-28-2025 Lymphocytes Auto (Unsp spec) [#/Vol] 1.77 10*3/uL 0.83-4.51 [facility] Anion gap in Serum or Plasma Ordered By: Debsrinathwolf Edenlakshmidesiree on 02-28-2025 Anion gap [Moles/Vol] 11 mmol/L 5-15 [facility] Automated lymphocyte count a s percentage of total leukocytesOrdered By: Kathiebiancalilian Meeklakshmidesiree on 02-28-2025 Lymphocytes/100 WBC Auto (Unsp spec) 23.3 % 19-41 [facility] BUN/creatinine ratioOrdered By: Kathiebiancasrinathwlof Edenlakshmidesiree on 02-28-2025 Urea nitrogen/Creatinine [Mass ratio] 7.0 mg/mg Low 10-20 [facility] Basophil percentageOrdered B y: Nando Wiggins on 02-28-2025 Basophils/100 WBC (Bld) 1.2 % High 0-1 [facility] Carbon dioxide, total [Moles /volume] in Central venous bloodOrdered By: Kathiebiancalilian Meeklakshmidesiree on 02-28-2025 CO2 [Moles/Vol] 28.4 mmol/L 21.0-32.0 [facility] Chloride assayOrdered By: Kathie fili Meeklakshmidesiree on 02-28-2025 Chloride [Moles/Vol] 96 mmol/L Low 98-108 [facility] Eosinophil percentageOrdered By: Nando Brownedesiree on 02-28-2025 Eosinophils/100 WBC (Bld) 3.3 % 0-5 [facility] Erythrocyte distribution wid th ratioOrdered By: Nando Brownedesiree on 02-28-2025 Erythrocyte distribution width (RBC) [Ratio] 16.3 % High 11.6-14.6 [facility] Erythrocyte distribution wid th standard deviationOrdered By: Nando Edenlakshmidesiree on 02-28-2025 Erythrocyte distribution width (RBC) [Ratio] 55.8 fl High 35.1-43.9 [facility] Glomerular filtration rate ( GFR) estimation/1.73 sq m using serum, plasma, or whole bOrdered By: Nando Wiggins on 02-28-2025 GFR/1.73 sq M.predicted among non-blacks MDRD (S/P/Bld) [Vol rate/Area] 9 mL/min/{1.73_m2} Low >60 [facility] Hematocrit Auto (Bld) [Volum e fraction]Ordered By: Nando Wiggins on 02-28-2025 Hematocrit (Bld) [Volume fraction] 35.3 % Low 40-54 [facility] Hemoglobin measurementOrdere d By: Nando Wiggins on 02-28-2025 Hemoglobin (Bld) [Mass/Vol] 11.1 g/dL Low 13.0-16.5 [facility] Immature granulocytes/100 WB C Auto (Bld)Ordered By: Nando Wiggins on 02-28-2025 Immature granulocytes/100 WBC (Bld) 1.800 % High 0.0-0.9 [facility] MCV (mean corpuscular volume ) determinationOrdered By: Nando Wiggins on 02-28-2025 MCV (RBC) [Entitic vol] 99.7 fL High 80-94 [facility] Mean corpuscular hemoglobin (MCH) determinationOrdered By: Nando Wiggins on 02-28-2025 MCH (RBC) [Entitic mass] 31.4 pg 27.0-32.0 [facility] Monocyte percentageOrdered B y: Nando Wiggins on 02-28-2025 Monocytes/100 WBC (Bld) 12.7 % High 0-10 [facility] Neutrophil percentageOrdered By: Nando Wiggins on 02-28-2025 Neutrophils/100 WBC (Bld) 57.7 % 47-70 [facility] Platelet countOrdered By: Kathie Wiggins on 02-28-2025 Platelets (Bld) [#/Vol] 249 10*3/uL 150-450 [facility] Potassium measurement (mass/ volume)Ordered By: Nando Wiggins on 02-28-2025 Potassium (Unsp spec) [Mass/Vol] 4.3 mmol/L 3.3-5.1 [facility] RBC Auto (Bld) [#/Vol]Ordere d By: Nando Wiggins on 02-28-2025 RBC (Bld) [#/Vol] 3.54 10*6/uL Low 4.6-6.2 [facility] Serum creatinine measurement (mass/volume)Ordered By: Nando Wiggins on 02-28-2025 Creatinine [Mass/Vol] 5.82 mg/dL High 0.70-1.20 [facility] Serum glucose measurement (m ass/volume)Ordered By: Nando Wiggins on 02-28-2025 Glucose [Mass/Vol] 197 mg/dL High 70-99 [facility] Serum or plasma calcium lilli urement (mass/volume)Ordered By: Nando Wiggins on 02-28-2025 Calcium [Mass/Vol] 9.0 mg/dL 7.6-11.0 [facility] Serum or plasma urea nitroge n measurement (mass/volume)Ordered By: Nando Wiggins on 02-28-2025 Urea nitrogen [Mass/Vol] 41 mg/dL High 4-19 [facility] Sodium levelOrdered By: Deb lilian Rosalie on 02-28-2025 Sodium [Moles/Vol] 136 mmol/L 133-145 [facility] White blood cell (WBC) count Ordered By: Nando Wiggins on 02-28-2025 WBC (Bld) [#/Vol] 7.6 10*3/uL 4.4-11.0 [facility] Femur Min 2 Viewson 02-16-20 25 Femur Min [address] [facility] Orthopedic Visit Reporton Orthopedic Visit Report Normal [facility] Absolute lymphocyte countOrd ered By: Nando Wiggins on 02-14-2025 Lymphocytes Auto (Unsp spec) [#/Vol] 1.41 10*3/uL 0.83-4.51 [facility] Anion gap in Serum or Plasma Ordered By: Nando Wiggins on 02-14-2025 Anion gap [Moles/Vol] 14 mmol/L 5-15 [facility] Automated lymphocyte count a s percentage of total leukocytesOrdered By: Nando Wiggins on 02-14-2025 Lymphocytes/100 WBC Auto (Unsp spec) 17.6 % Low 19-41 [facility] BUN/creatinine ratioOrdered By: Nando Edenlakshmidesiree on 02-14-2025 Urea nitrogen/Creatinine [Mass ratio] 8.4 mg/mg Low 10-20 [facility] Basophil percentageOrdered B y: Nando Wiggins on 02-14-2025 Basophils/100 WBC (Bld) 0.7 % 0-1 [facility] Carbon dioxide, total [Moles /volume] in Central venous bloodOrdered By: Nando Wiggins on 02-14-2025 CO2 [Moles/Vol] 25.7 mmol/L 21.0-32.0 [facility] Chloride assayOrdered By: Kathie biancalilian Wiggins on 02-14-2025 Chloride [Moles/Vol] 93 mmol/L Low 98-108 [facility] Eosinophil percentageOrdered By: Nando Edenlakshmidesiree on 02-14-2025 Eosinophils/100 WBC (Bld) 3.9 % 0-5 [facility] Erythrocyte distribution wid th ratioOrdered By: Nando Wiggins on 02-14-2025 Erythrocyte distribution width (RBC) [Ratio] 15.6 % High 11.6-14.6 [facility] Erythrocyte distribution wid th standard deviationOrdered By: Nando Wiggins on 02-14-2025 Erythrocyte distribution width (RBC) [Ratio] 52.3 fl High 35.1-43.9 [facility] Glomerular filtration rate ( GFR) estimation/1.73 sq m using serum, plasma, or whole bOrdered By: Nando Wiggins on 02-14-2025 GFR/1.73 sq M.predicted among non-blacks MDRD (S/P/Bld) [Vol rate/Area] 10 mL/min/{1.73_m2} Low >60 [facility] Hematocrit Auto (Bld) [Volum e fraction]Ordered By: Nando Wiggins on 02-14-2025 Hematocrit (Bld) [Volume fraction] 28.6 % Low 40-54 [facility] Hemoglobin measurementOrdere d By: Nando Wiggins on 02-14-2025 Hemoglobin (Bld) [Mass/Vol] 9.3 g/dL Low 13.0-16.5 [facility] Immature granulocytes/100 WB C Auto (Bld)Ordered By: Kathiebiancalilian Meeklakshmidesiree on 02-14-2025 Immature granulocytes/100 WBC (Bld) 1.100 % High 0.0-0.9 [facility] MCV (mean corpuscular volume ) determinationOrdered By: Kathiebiancasrinathwolf Edenlakshmidesiree on 02-14-2025 MCV (RBC) [Entitic vol] 96.6 fL High 80-94 [facility] Mean corpuscular hemoglobin (MCH) determinationOrdered By: Kathiefili Edenlakshmidesiree on 02-14-2025 MCH (RBC) [Entitic mass] 31.4 pg 27.0-32.0 [facility] Monocyte percentageOrdered B y: Nando Meekcheko on 02-14-2025 Monocytes/100 WBC (Bld) 11.6 % High 0-10 [facility] Neutrophil percentageOrdered By: fili Wiggins on 02-14-2025 Neutrophils/100 WBC (Bld) 65.1 % 47-70 [facility] Platelet countOrdered By: Kathie fili Wiggins on 02-14-2025 Platelets (Bld) [#/Vol] 233 10*3/uL 150-450 [facility] Potassium measurement (mass/ volume)Ordered By: Kathiebiancalilian Meeklakshmidesiree on 02-14-2025 Potassium (Unsp spec) [Mass/Vol] 4.5 mmol/L 3.3-5.1 [facility] RBC Auto (Bld) [#/Vol]Ordere d By: Nando Wiggins on 02-14-2025 RBC (Bld) [#/Vol] 2.96 10*6/uL Low 4.6-6.2 [facility] Serum creatinine measurement (mass/volume)Ordered By: Kathiefili Edenlakshmidesiree on 02-14-2025 Creatinine [Mass/Vol] 5.03 mg/dL High 0.70-1.20 [facility] Serum glucose measurement (m ass/volume)Ordered By: Nando Wiggins on 02-14-2025 Glucose [Mass/Vol] 130 mg/dL High 70-99 [facility] Serum or plasma calcium lilli urement (mass/volume)Ordered By: Nando Wiggins on 02-14-2025 Calcium [Mass/Vol] 8.7 mg/dL 7.6-11.0 [facility] Serum or plasma urea nitroge n measurement (mass/volume)Ordered By: Nando Wiggins on 02-14-2025 Urea nitrogen [Mass/Vol] 42 mg/dL High 4-19 [facility] Sodium levelOrdered By: Kathie lilian Rosalie on 02-14-2025 Sodium [Moles/Vol] 133 mmol/L 133-145 [facility] White blood cell (WBC) count Ordered By: Nando Wiggins on 02-14-2025 WBC (Bld) [#/Vol] 8.0 10*3/uL 4.4-11.0 [facility] Absolute lymphocyte countOrd ered By: Nando Wiggins on 02-12-2025 Lymphocytes Auto (Unsp spec) [#/Vol] 1.23 10*3/uL 0.83-4.51 [facility] Anion gap in Serum or Plasma Ordered By: Nando Wiggins on 02-12-2025 Anion gap [Moles/Vol] 14 mmol/L 5-15 [facility] Automated lymphocyte count a s percentage of total leukocytesOrdered By: Nando Wiggins on 02-12-2025 Lymphocytes/100 WBC Auto (Unsp spec) 13.9 % Low 19-41 [facility] BUN/creatinine ratioOrdered By: Nando Wiggins on 02-12-2025 Urea nitrogen/Creatinine [Mass ratio] 10.1 mg/mg 10-20 [facility] Basophil percentageOrdered B y: Nando Wiggins on 02-12-2025 Basophils/100 WBC (Bld) 0.7 % 0-1 [facility] Carbon dioxide, total [Moles /volume] in Central venous bloodOrdered By: Nando Wiggins on 02-12-2025 CO2 [Moles/Vol] 25.3 mmol/L 21.0-32.0 [facility] Chloride assayOrdered By: Kathie Wiggins on 02-12-2025 Chloride [Moles/Vol] 92 mmol/L Low 98-108 [facility] Eosinophil percentageOrdered By: Nando Wiggins on 02-12-2025 Eosinophils/100 WBC (Bld) 2.9 % 0-5 [facility] Erythrocyte distribution wid th ratioOrdered By: Nando Wiggins on 02-12-2025 Erythrocyte distribution width (RBC) [Ratio] 15.0 % High 11.6-14.6 [facility] Erythrocyte distribution wid th standard deviationOrdered By: Nando Wiggins on 02-12-2025 Erythrocyte distribution width (RBC) [Ratio] 51.9 fl High 35.1-43.9 [facility] Glomerular filtration rate ( GFR) estimation/1.73 sq m using serum, plasma, or whole bOrdered By: Nando Wiggins on 02-12-2025 GFR/1.73 sq M.predicted among non-blacks MDRD (S/P/Bld) [Vol rate/Area] 9 mL/min/{1.73_m2} Low >60 [facility] Hematocrit Auto (Bld) [Volum e fraction]Ordered By: Nando Wiggins on 02-12-2025 Hematocrit (Bld) [Volume fraction] 29.8 % Low 40-54 [facility] Hemoglobin measurementOrdere d By: Nando Wiggins on 02-12-2025 Hemoglobin (Bld) [Mass/Vol] 9.4 g/dL Low 13.0-16.5 [facility] Immature granulocytes/100 WB C Auto (Bld)Ordered By: Nando Wiggins on 02-12-2025 Immature granulocytes/100 WBC (Bld) 1.500 % High 0.0-0.9 [facility] MCV (mean corpuscular volume ) determinationOrdered By: Nando Wiggins on 02-12-2025 MCV (RBC) [Entitic vol] 96.8 fL High 80-94 [facility] Mean corpuscular hemoglobin (MCH) determinationOrdered By: Nando Wiggins on 02-12-2025 MCH (RBC) [Entitic mass] 30.5 pg 27.0-32.0 [facility] Monocyte percentageOrdered B y: Nando Wiggins on 02-12-2025 Monocytes/100 WBC (Bld) 9.7 % 0-10 [facility] Neutrophil percentageOrdered By: Nando Wiggins on 02-12-2025 Neutrophils/100 WBC (Bld) 71.3 % High 47-70 [facility] Platelet countOrdered By: Kathie Wiggins on 02-12-2025 Platelets (Bld) [#/Vol] 238 10*3/uL 150-450 [facility] Potassium measurement (mass/ volume)Ordered By: Nando Wiggins on 02-12-2025 Potassium (Unsp spec) [Mass/Vol] 4.5 mmol/L 3.3-5.1 [facility] RBC Auto (Bld) [#/Vol]Ordere d By: Nando Wiggins on 02-12-2025 RBC (Bld) [#/Vol] 3.08 10*6/uL Low 4.6-6.2 [facility] Serum creatinine measurement (mass/volume)Ordered By: Nando Wiggins on 02-12-2025 Creatinine [Mass/Vol] 5.63 mg/dL High 0.70-1.20 [facility] Serum glucose measurement (m ass/volume)Ordered By: Nando Wiggins on 02-12-2025 Glucose [Mass/Vol] 173 mg/dL High 70-99 [facility] Serum or plasma calcium lilli urement (mass/volume)Ordered By: Nando Wiggins on 02-12-2025 Calcium [Mass/Vol] 8.8 mg/dL 7.6-11.0 [facility] Serum or plasma urea nitroge n measurement (mass/volume)Ordered By: Nando Wiggins on 02-12-2025 Urea nitrogen [Mass/Vol] 57 mg/dL High 4-19 [facility] Sodium levelOrdered By: Deb Wiggins on 02-12-2025 Sodium [Moles/Vol] 132 mmol/L Low 133-145 [facility] White blood cell (WBC) count Ordered By: Nando Wiggins on 02-12-2025 WBC (Bld) [#/Vol] 8.9 10*3/uL 4.4-11.0 [facility] Absolute lymphocyte countOrd ered By: Nando Edenlakshmidesiree on 02-07-2025 Lymphocytes Auto (Unsp spec) [#/Vol] 1.40 10*3/uL 0.83-4.51 [facility] Anion gap in Serum or Plasma Ordered By: Nando Wiggins on 02-07-2025 Anion gap [Moles/Vol] 15 mmol/L 5-15 [facility] Automated lymphocyte count a s percentage of total leukocytesOrdered By: Nando Wiggins on 02-07-2025 Lymphocytes/100 WBC Auto (Unsp spec) 15.7 % Low 19-41 [facility] BUN/creatinine ratioOrdered By: Nando Wiggins on 02-07-2025 Urea nitrogen/Creatinine [Mass ratio] 9.5 mg/mg Low 10-20 [facility] Basophil percentageOrdered B y: Nando Wiggins on 02-07-2025 Basophils/100 WBC (Bld) 0.6 % 0-1 [facility] Carbon dioxide, total [Moles /volume] in Central venous bloodOrdered By: Nando Wiggins on 02-07-2025 CO2 [Moles/Vol] 25.0 mmol/L 21.0-32.0 [facility] Chloride assayOrdered By: Kathie Wiggins on 02-07-2025 Chloride [Moles/Vol] 93 mmol/L Low 98-108 [facility] Eosinophil percentageOrdered By: fili Wiggins on 02-07-2025 Eosinophils/100 WBC (Bld) 3.5 % 0-5 [facility] Erythrocyte distribution wid th ratioOrdered By: Nando Wiggins on 02-07-2025 Erythrocyte distribution width (RBC) [Ratio] 15.1 % High 11.6-14.6 [facility] Erythrocyte distribution wid th standard deviationOrdered By: Nando Wiggins on 02-07-2025 Erythrocyte distribution width (RBC) [Ratio] 53.2 fl High 35.1-43.9 [facility] Glomerular filtration rate ( GFR) estimation/1.73 sq m using serum, plasma, or whole bOrdered By: Kathiebiancasrinathwolf Edenlakshmidesiree on 02-07-2025 GFR/1.73 sq M.predicted among non-blacks MDRD (S/P/Bld) [Vol rate/Area] 9 mL/min/{1.73_m2} Low >60 [facility] Hematocrit Auto (Bld) [Volum e fraction]Ordered By: Nando Wiggins on 02-07-2025 Hematocrit (Bld) [Volume fraction] 28.2 % Low 40-54 [facility] Hemoglobin measurementOrdere d By: Debsrinathwolf Edenlakshmidesiree on 02-07-2025 Hemoglobin (Bld) [Mass/Vol] 9.0 g/dL Low 13.0-16.5 [facility] Immature granulocytes/100 WB C Auto (Bld)Ordered By: Nando Wiggins on 02-07-2025 Immature granulocytes/100 WBC (Bld) 0.700 % 0.0-0.9 [facility] MCV (mean corpuscular volume ) determinationOrdered By: Nando Wiggins on 02-07-2025 MCV (RBC) [Entitic vol] 96.6 fL High 80-94 [facility] Mean corpuscular hemoglobin (MCH) determinationOrdered By: Nando Edenlakshmidesiree on 02-07-2025 MCH (RBC) [Entitic mass] 30.8 pg 27.0-32.0 [facility] Monocyte percentageOrdered B y: Nando Wiggins on 02-07-2025 Monocytes/100 WBC (Bld) 9.7 % 0-10 [facility] Neutrophil percentageOrdered By: Nando Edenlakshmidesiree on 02-07-2025 Neutrophils/100 WBC (Bld) 69.8 % 47-70 [facility] Platelet countOrdered By: Kathie rehanwolf Edenlakshmidesiree on 02-07-2025 Platelets (Bld) [#/Vol] 231 10*3/uL 150-450 [facility] Potassium measurement (mass/ volume)Ordered By: Nando Wiggins on 02-07-2025 Potassium (Unsp spec) [Mass/Vol] 4.7 mmol/L 3.3-5.1 [facility] RBC Auto (Bld) [#/Vol]Ordere d By: Kathiebiancasrinathwolf Wiggins on 02-07-2025 RBC (Bld) [#/Vol] 2.92 10*6/uL Low 4.6-6.2 [facility] Serum creatinine measurement (mass/volume)Ordered By: Nando Wiggins on 02-07-2025 Creatinine [Mass/Vol] 5.66 mg/dL High 0.70-1.20 [facility] Serum glucose measurement (m ass/volume)Ordered By: Nando Wiggins on 02-07-2025 Glucose [Mass/Vol] 178 mg/dL High 70-99 [facility] Serum or plasma calcium lilli urement (mass/volume)Ordered By: Nando Wiggins on 02-07-2025 Calcium [Mass/Vol] 8.8 mg/dL 7.6-11.0 [facility] Serum or plasma urea nitroge n measurement (mass/volume)Ordered By: Nando Wiggins on 02-07-2025 Urea nitrogen [Mass/Vol] 54 mg/dL High - [facility] Sodium levelOrdered By: Deb quintana Meeklakshmidesiree on 02-07-2025 Sodium [Moles/Vol] 133 mmol/L 133-145 [facility] White blood cell (WBC) count Ordered By: Nando Wiggins on 02-07-2025 WBC (Bld) [#/Vol] 8.9 10*3/uL 4.4-11.0 [facility] Basic Metabolic Profile (BMP )on 02-03-2025 BUN Normal - [facility] Comment on above: Result Comment: Solomon eason via OM: Order cancelled - Patient discharged Performed By: #### L 500.2500, L100.0100 ####[facility] [address] [place], [place], [address] BUN/CRE Normal - [facility] Comment on above: Result Comment: Canc elled via OM: Order cancelled - Patient discharged Performed By: #### L 500.2500, L100.0100 ####[facility] [address] [place], [address] Calcium Normal 7.6-11.0 [facility] Comment on above: Result Comment: Canc elled via OM: Order cancelled - Patient discharged Performed By: #### L 500.2500, L100.0100 ####[facility] [address] [place], [address] CL Normal 98-108 [facility] Comment on above: Result Comment: Canc elled via OM: Order cancelled - Patient discharged Performed By: #### L 500.2500, L100.0100 ####[facility] [address] [place], [address] CO2 Normal 21.0-32.0 [facility] Comment on above: Result Comment: Canc elled via OM: Order cancelled - Patient discharged Performed By: #### L 500.2500, L100.0100 ####[facility] [address] [place], [address] CREAT,SERUM Normal 0.70-1.20 [facility] Comment on above: Result Comment: Canc elled via OM: Order cancelled - Patient discharged Performed By: #### L 500.2500, L100.0100 ####[facility] [address] [place], [address] eGFR Normal >60 [facility] Comment on above: Result Comment: Canc elled via OM: Order cancelled - Patient discharged Performed By: #### L 500.2500, L100.0100 ####[facility] [address] [place], [address] GAP Normal 5-15 [facility] Comment on above: Result Comment: Canc elled via OM: Order cancelled - Patient discharged Performed By: #### L 500.2500, L100.0100 ####[facility] [address] [place], [address] GLU Normal 70-99 [facility] Comment on above: Result Comment: Canc elled via OM: Order cancelled - Patient discharged Performed By: #### L 500.2500, L100.0100 ####[facility] [address] [place], [address] Potassium Normal 3.3-5.1 [facility] Comment on above: Result Comment: Canc elled via OM: Order cancelled - Patient discharged Performed By: #### L 500.2500, L100.0100 ####[facility] [address] [place], [address] Basic Metabolic Profile (BMP) Normal 133-145 [facility] Comment on above: Result Comment: Canc elled via OM: Order cancelled - Patient discharged Performed By: #### L 500.2500, L100.0100 ####[facility] [address] [place], [address] CBC W/Diff, Automatedon 09-1 Absolute Neut Normal 2.0-7.7 [facility] Comment on above: Result Comment: Canc elled via OM: Order cancelled - Patient discharged Performed By: #### L 500.2500, L100.0100 ####[facility] [address] [place], [address] HCT Normal 40-54 [facility] Comment on above: Result Comment: Canc elled via OM: Order cancelled - Patient discharged Performed By: #### L 500.2500, L100.0100 ####[facility] [address] [place], [address] HGB Normal 13.0-16.5 [facility] Comment on above: Result Comment: Canc elled via OM: Order cancelled - Patient discharged Performed By: #### L 500.2500, L100.0100 ####[facility] [address] [place], [address] MCH Normal 27.0-32.0 [facility] Comment on above: Result Comment: Canc elled via OM: Order cancelled - Patient discharged Performed By: #### L 500.2500, L100.0100 ####[facility] [address] [place], [address] MCHC Normal 32-36 [facility] Comment on above: Result Comment: Canc elled via OM: Order cancelled - Patient discharged Performed By: #### L 500.2500, L100.0100 ####[facility] [address] [place], [address] MCV Normal 80-94 [facility] Comment on above: Result Comment: Canc elled via OM: Order cancelled - Patient discharged Performed By: #### L 500.2500, L100.0100 ####[facility] [address] [place], [address] NEUT% Normal 47-70 [facility] Comment on above: Result Comment: Canc elled via OM: Order cancelled - Patient discharged Performed By: #### L 500.2500, L100.0100 ####[facility] [address] [place], [address] PLT Normal 150-450 [facility] Comment on above: Result Comment: Canc elled via OM: Order cancelled - Patient discharged Performed By: #### L 500.2500, L100.0100 ####[facility] [address] [place], [address] RBC Normal 4.6-6.2 [facility] Comment on above: Result Comment: Canc elled via OM: Order cancelled - Patient discharged Performed By: #### L 500.2500, L100.0100 ####[facility] [address] [place], [address] RDW CV Normal 11.6-14.6 [facility] Comment on above: Result Comment: Canc elled via OM: Order cancelled - Patient discharged Performed By: #### L 500.2500, L100.0100 ####[facility] [address] [place], [address] RDW SD Normal 35.1-43.9 [facility] Comment on above: Result Comment: Canc elled via OM: Order cancelled - Patient discharged Performed By: #### L 500.2500, L100.0100 ####[facility] [address] [place], [address] WBC Normal 4.4-11.0 [facility] Comment on above: Result Comment: Canc elled via OM: Order cancelled - Patient discharged Performed By: #### L 500.2500, L100.0100 ####[facility] [address] [place], [address] Basic Metabolic Profile (BMP )on 02-02-2025 BUN Normal 4-19 [facility] Comment on above: Result Comment: Canc elled via OM: Order cancelled - Patient discharged Performed By: #### L 500.2500, L100.0100 ####[facility] [address] [place], [address] BUN/CRE Normal 10-20 [facility] Comment on above: Result Comment: Canc elled via OM: Order cancelled - Patient discharged Performed By: #### L 500.2500, L100.0100 ####[facility] [address] [place], [address] Calcium Normal 7.6-11.0 [facility] Comment on above: Result Comment: Canc elled via OM: Order cancelled - Patient discharged Performed By: #### L 500.2500, L100.0100 ####[facility] [address] [place], [address] CL Normal 98-108 [facility] Comment on above: Result Comment: Canc elled via OM: Order cancelled - Patient discharged Performed By: #### L 500.2500, L100.0100 ####[facility] [address] [place], [address] CO2 Normal 21.0-32.0 [facility] Comment on above: Result Comment: Canc elled via OM: Order cancelled - Patient discharged Performed By: #### L 500.2500, L100.0100 ####[facility] [address] [place], [address] CREAT,SERUM Normal 0.70-1.20 [facility] Comment on above: Result Comment: Canc elled via OM: Order cancelled - Patient discharged Performed By: #### L 500.2500, L100.0100 ####[facility] [address] [place], [address] eGFR Normal >60 [facility] Comment on above: Result Comment: Canc elled via OM: Order cancelled - Patient discharged Performed By: #### L 500.2500, L100.0100 ####[facility] [address] [place], [address] GAP Normal 5-15 [facility] Comment on above: Result Comment: Canc elled via OM: Order cancelled - Patient discharged Performed By: #### L 500.2500, L100.0100 ####[facility] [address] [place], [address] GLU Normal 70-99 [facility] Comment on above: Result Comment: Canc elled via OM: Order cancelled - Patient discharged Performed By: #### L 500.2500, L100.0100 ####[facility] [address] [place], [address] Potassium Normal 3.3-5.1 [facility] Comment on above: Result Comment: Canc elled via OM: Order cancelled - Patient discharged Performed By: #### L 500.2500, L100.0100 ####[facility] [address] [place], [address] Basic Metabolic Profile (BMP) Normal 133-145 [facility] Comment on above: Result Comment: Canc elled via OM: Order cancelled - Patient discharged Performed By: #### L 500.2500, L100.0100 ####[facility] [address] [place], [address] CBC W/Diff, Automatedon - Absolute Neut Normal 2.0-7.7 [facility] Comment on above: Result Comment: Canc elled via OM: Order cancelled - Patient discharged Performed By: #### L 500.2500, L100.0100 ####[facility] [address] [place], [address] HCT Normal 40-54 [facility] Comment on above: Result Comment: Canc elled via OM: Order cancelled - Patient discharged Performed By: #### L 500.2500, L100.0100 ####[facility] [address] [place], [address] HGB Normal 13.0-16.5 [facility] Comment on above: Result Comment: Canc elled via OM: Order cancelled - Patient discharged Performed By: #### L 500.2500, L100.0100 ####[facility] [address] [place], [address] MCH Normal 27.0-32.0 [facility] Comment on above: Result Comment: Canc elled via OM: Order cancelled - Patient discharged Performed By: #### L 500.2500, L100.0100 ####[facility] [address] [place], [address] MCHC Normal 32-36 [facility] Comment on above: Result Comment: Canc elled via OM: Order cancelled - Patient discharged Performed By: #### L 500.2500, L100.0100 ####[facility] [address] [place], [address] MCV Normal 80-94 [facility] Comment on above: Result Comment: Canc elled via OM: Order cancelled - Patient discharged Performed By: #### L 500.2500, L100.0100 ####[facility] [address] [place], [address] NEUT% Normal 47-70 [facility] Comment on above: Result Comment: Canc elled via OM: Order cancelled - Patient discharged Performed By: #### L 500.2500, L100.0100 ####[facility] [address] [place], [address] PLT Normal 150-450 [facility] Comment on above: Result Comment: Canc elled via OM: Order cancelled - Patient discharged Performed By: #### L 500.2500, L100.0100 ####[facility] [address] [place], [address] RBC Normal 4.6-6.2 [facility] Comment on above: Result Comment: Canc elled via OM: Order cancelled - Patient discharged Performed By: #### L 500.2500, L100.0100 ####[facility] [address] [place], [address] RDW CV Normal 11.6-14.6 [facility] Comment on above: Result Comment: Canc elled via OM: Order cancelled - Patient discharged Performed By: #### L 500.2500, L100.0100 ####[facility] [address] [place], [address] RDW SD Normal 35.1-43.9 [facility] Comment on above: Result Comment: Canc elled via OM: Order cancelled - Patient discharged Performed By: #### L 500.2500, L100.0100 ####[facility] [address] [place], [address] WBC Normal 4.4-11.0 [facility] Comment on above: Result Comment: Canc elled via OM: Order cancelled - Patient discharged Performed By: #### L 500.2500, L100.0100 ####[facility] [address] [place], [address] Absolute lymphocyte countOrd ered By: Nando Wiggins on 02-01-2025 Lymphocytes Auto (Unsp spec) [#/Vol] 1.24 10*3/uL 0.83-4.51 [facility] Anion gap in Serum or Plasma Ordered By: Deblagunitaswolf Wiggins on 02-01-2025 Anion gap [Moles/Vol] 15 mmol/L 5-15 [facility] Automated lymphocyte count a s percentage of total leukocytesOrdered By: Nando Wiggins on 02-01-2025 Lymphocytes/100 WBC Auto (Unsp spec) 18.4 % Low 19-41 [facility] BUN/creatinine ratioOrdered By: Nando Wiggins on 02-01-2025 Urea nitrogen/Creatinine [Mass ratio] 10.9 mg/mg 10- [facility] Basic Metabolic Profile (BMP )on 02-01-2025 BUN Normal 4-19 [facility] Comment on above: Result Comment: Canc elled via OM: Order cancelled - Patient discharged Performed By: #### L 500.2500, L100.0100 ####[facility] [address] [place], [address] BUN/CRE Normal 10-20 [facility] Comment on above: Result Comment: Canc elled via OM: Order cancelled - Patient discharged Performed By: #### L 500.2500, L100.0100 ####[facility] [address] [place], [address] Calcium Normal 7.6-11.0 [facility] Comment on above: Result Comment: Canc elled via OM: Order cancelled - Patient discharged Performed By: #### L 500.2500, L100.0100 ####[facility] [address] [place], [address] CL Normal 98-108 [facility] Comment on above: Result Comment: Canc elled via OM: Order cancelled - Patient discharged Performed By: #### L 500.2500, L100.0100 ####[facility] [address] [place], [address] CO2 Normal 21.0-32.0 [facility] Comment on above: Result Comment: Canc elled via OM: Order cancelled - Patient discharged Performed By: #### L 500.2500, L100.0100 ####[facility] [address] [place], [address] CREAT,SERUM Normal 0.70-1.20 [facility] Comment on above: Result Comment: Canc elled via OM: Order cancelled - Patient discharged Performed By: #### L 500.2500, L100.0100 ####[facility] [address] [place], [address] eGFR Normal >60 [facility] Comment on above: Result Comment: Canc elled via OM: Order cancelled - Patient discharged Performed By: #### L 500.2500, L100.0100 ####[facility] [address] [place], [address] GAP Normal 5-15 [facility] Comment on above: Result Comment: Canc elled via OM: Order cancelled - Patient discharged Performed By: #### L 500.2500, L100.0100 ####[facility] [address] [place], [address] GLU Normal 70-99 [facility] Comment on above: Result Comment: Canc elled via OM: Order cancelled - Patient discharged Performed By: #### L 500.2500, L100.0100 ####[facility] [address] [place], [address] Potassium Normal 3.3-5.1 [facility] Comment on above: Result Comment: Canc elled via OM: Order cancelled - Patient discharged Performed By: #### L 500.2500, L100.0100 ####[facility] [address] [place], [address] Basic Metabolic Profile (BMP) Normal 133-145 [facility] Comment on above: Result Comment: Canc elled via OM: Order cancelled - Patient discharged Performed By: #### L 500.2500, L100.0100 ####[facility] [address] [place], [address] Basophil percentageOrdered B y: Effili Brownee on 02-01-2025 Basophils/100 WBC (Bld) 0.7 % 0-1 [facility] CBC W/Diff, Automatedon 01-21 Absolute Neut Normal 2.0-7.7 [facility] Comment on above: Result Comment: Canc elled via OM: Order cancelled - Patient discharged Performed By: #### L 500.2500, L100.0100 ####[facility] [address] [place], [address] HCT Normal 40-54 [facility] Comment on above: Result Comment: Canc elled via OM: Order cancelled - Patient discharged Performed By: #### L 500.2500, L100.0100 ####[facility] [address] [place], [address] HGB Normal 13.0-16.5 [facility] Comment on above: Result Comment: Canc elled via OM: Order cancelled - Patient discharged Performed By: #### L 500.2500, L100.0100 ####[facility] [address] [place], [address] MCH Normal 27.0-32.0 [facility] Comment on above: Result Comment: Canc elled via OM: Order cancelled - Patient discharged Performed By: #### L 500.2500, L100.0100 ####[facility] [address] [place], [address] MCHC Normal 32-36 [facility] Comment on above: Result Comment: Canc elled via OM: Order cancelled - Patient discharged Performed By: #### L 500.2500, L100.0100 ####[facility] [address] [place], [address] MCV Normal 80-94 [facility] Comment on above: Result Comment: Canc elled via OM: Order cancelled - Patient discharged Performed By: #### L 500.2500, L100.0100 ####[facility] [address] [place], [address] NEUT% Normal 47-70 [facility] Comment on above: Result Comment: Canc elled via OM: Order cancelled - Patient discharged Performed By: #### L 500.2500, L100.0100 ####[facility] [address] [place], [address] PLT Normal 150-450 [facility] Comment on above: Result Comment: Canc elled via OM: Order cancelled - Patient discharged Performed By: #### L 500.2500, L100.0100 ####[facility] [address] [place], [address] RBC Normal 4.6-6.2 [facility] Comment on above: Result Comment: Canc elled via OM: Order cancelled - Patient discharged Performed By: #### L 500.2500, L100.0100 ####[facility] [address] [place], [address] RDW CV Normal 11.6-14.6 [facility] Comment on above: Result Comment: Canc elled via OM: Order cancelled - Patient discharged Performed By: #### L 500.2500, L100.0100 ####[facility] [address] [place], [address] RDW SD Normal 35.1-43.9 [facility] Comment on above: Result Comment: Canc elled via OM: Order cancelled - Patient discharged Performed By: #### L 500.2500, L100.0100 ####[facility] [address] [place], [address] WBC Normal 4.4-11.0 [facility] Comment on above: Result Comment: Canc elled via OM: Order cancelled - Patient discharged Performed By: #### L 500.2500, L100.0100 ####[facility] [address] [place], [address] Carbon dioxide, total [Moles /volume] in Central venous bloodOrdered By: Nando Wiggins on 02-01-2025 CO2 [Moles/Vol] 25.4 mmol/L 21.0-32.0 [facility] Chloride assayOrdered By: Kathie Wiggins on 02-01-2025 Chloride [Moles/Vol] 95 mmol/L Low 98-108 [facility] Eosinophil percentageOrdered By: Nando Wiggins on 02-01-2025 Eosinophils/100 WBC (Bld) 3.7 % 0-5 [facility] Erythrocyte distribution wid th ratioOrdered By: Nando Wiggins on 02-01-2025 Erythrocyte distribution width (RBC) [Ratio] 16.1 % High 11.6-14.6 [facility] Erythrocyte distribution wid th standard deviationOrdered By: Nando Wiggins on 02-01-2025 Erythrocyte distribution width (RBC) [Ratio] 54.7 fl High 35.1-43.9 [facility] Glomerular filtration rate ( GFR) estimation/1.73 sq m using serum, plasma, or whole bOrdered By: Nando Wiggins on 02-01-2025 GFR/1.73 sq M.predicted among non-blacks MDRD (S/P/Bld) [Vol rate/Area] 13 mL/min/{1.73_m2} Low >60 [facility] Hematocrit Auto (Bld) [Volum e fraction]Ordered By: Nando Brownedesiree on 02-01-2025 Hematocrit (Bld) [Volume fraction] 28.5 % Low 40-54 [facility] Hemoglobin measurementOrdere d By: Nando Wiggins on 02-01-2025 Hemoglobin (Bld) [Mass/Vol] 9.4 g/dL Low 13.0-16.5 [facility] Immature granulocytes/100 WB C Auto (Bld)Ordered By: biancalilian Meeklakshmidesiree on 02-01-2025 Immature granulocytes/100 WBC (Bld) 0.900 % 0.0-0.9 [facility] MCV (mean corpuscular volume ) determinationOrdered By: Nando Meeklakshmidesiree on 02-01-2025 MCV (RBC) [Entitic vol] 94.7 fL High 80-94 [facility] Mean corpuscular hemoglobin (MCH) determinationOrdered By: biancalilian Meeklakshmidesiree on 02-01-2025 MCH (RBC) [Entitic mass] 31.2 pg 27.0-32.0 [facility] Monocyte percentageOrdered B y: Nando Wiggins on 02-01-2025 Monocytes/100 WBC (Bld) 15.3 % High 0-10 [facility] Neutrophil percentageOrdered By: biancalagunitaswolf Meekcheko on 02-01-2025 Neutrophils/100 WBC (Bld) 61.0 % 47-70 [facility] Platelet countOrdered By: Kathie Wiggins on 02-01-2025 Platelets (Bld) [#/Vol] 178 10*3/uL 150-450 [facility] Potassium measurement (mass/ volume)Ordered By: Nando Wiggins on 02-01-2025 Potassium (Unsp spec) [Mass/Vol] 4.5 mmol/L 3.3-5.1 [facility] RBC Auto (Bld) [#/Vol]Ordere d By: Nando Meekcheko on 02-01-2025 RBC (Bld) [#/Vol] 3.01 10*6/uL Low 4.6-6.2 [facility] Serum creatinine measurement (mass/volume)Ordered By: Kathiebiancasrinathwolf Wiggins on 02-01-2025 Creatinine [Mass/Vol] 4.22 mg/dL High 0.70-1.20 [facility] Serum glucose measurement (m ass/volume)Ordered By: Kathiefili Wiggins on 02-01-2025 Glucose [Mass/Vol] 221 mg/dL High 70-99 [facility] Serum or plasma calcium lilli urement (mass/volume)Ordered By: Kathiefili Wiggins on 02-01-2025 Calcium [Mass/Vol] 8.2 mg/dL 7.6-11.0 [facility] Serum or plasma urea nitroge n measurement (mass/volume)Ordered By: Kathiebiancalagunitaswolf Wiggins on 02-01-2025 Urea nitrogen [Mass/Vol] 46 mg/dL High 4-19 [facility] Sodium levelOrdered By: Deb quintana Meeklakshmidesiree on 02-01-2025 Sodium [Moles/Vol] 135 mmol/L 133-145 [facility] White blood cell (WBC) count Ordered By: Kathiebiancasrinathwolf Wiggins on 02-01-2025 WBC (Bld) [#/Vol] 6.7 10*3/uL 4.4-11.0 [facility] Basic Metabolic Profile (BMP )on 01-31-2025 BUN Normal 4-19 [facility] Comment on above: Result Comment: Canc elled via OM: Order cancelled - Patient discharged Performed By: #### L 500.2500, L100.0100 ####[facility] [address] [place], [address] BUN/CRE Normal 10-20 [facility] Comment on above: Result Comment: Canc elled via OM: Order cancelled - Patient discharged Performed By: #### L 500.2500, L100.0100 ####[facility] [address] [place], [address] Calcium Normal 7.6-11.0 [facility] Comment on above: Result Comment: Canc elled via OM: Order cancelled - Patient discharged Performed By: #### L 500.2500, L100.0100 ####[facility] [address] [place], [address] CL Normal 98-108 [facility] Comment on above: Result Comment: Canc elled via OM: Order cancelled - Patient discharged Performed By: #### L 500.2500, L100.0100 ####[facility] [address] [place], [address] CO2 Normal 21.0-32.0 [facility] Comment on above: Result Comment: Canc elled via OM: Order cancelled - Patient discharged Performed By: #### L 500.2500, L100.0100 ####[facility] [address] [place], [address] CREAT,SERUM Normal 0.70-1.20 [facility] Comment on above: Result Comment: Canc elled via OM: Order cancelled - Patient discharged Performed By: #### L 500.2500, L100.0100 ####[facility] [address] [place], [address] eGFR Normal >60 [facility] Comment on above: Result Comment: Canc elled via OM: Order cancelled - Patient discharged Performed By: #### L 500.2500, L100.0100 ####[facility] [address] [place], [address] GAP Normal 5-15 [facility] Comment on above: Result Comment: Canc elled via OM: Order cancelled - Patient discharged Performed By: #### L 500.2500, L100.0100 ####[facility] [address] [place], [address] GLU Normal 70-99 [facility] Comment on above: Result Comment: Canc elled via OM: Order cancelled - Patient discharged Performed By: #### L 500.2500, L100.0100 ####[facility] [address] [place], [address] Potassium Normal 3.3-5.1 [facility] Comment on above: Result Comment: Canc elled via OM: Order cancelled - Patient discharged Performed By: #### L 500.2500, L100.0100 ####[facility] [address] [place], [address] Basic Metabolic Profile (BMP) Normal 133-145 [facility] Comment on above: Result Comment: Canc elled via OM: Order cancelled - Patient discharged Performed By: #### L 500.2500, L100.0100 ####[facility] [address] [place], [address] CBC W/Diff, Automatedon 09- Absolute Neut Normal 2.0-7.7 [facility] Comment on above: Result Comment: Canc elled via OM: Order cancelled - Patient discharged Performed By: #### L 500.2500, L100.0100 ####[facility] [address] [place], [address] HCT Normal 40-54 [facility] Comment on above: Result Comment: Canc elled via OM: Order cancelled - Patient discharged Performed By: #### L 500.2500, L100.0100 ####[facility] [address] [place], [address] HGB Normal 13.0-16.5 [facility] Comment on above: Result Comment: Canc elled via OM: Order cancelled - Patient discharged Performed By: #### L 500.2500, L100.0100 ####[facility] [address] [place], [address] MCH Normal 27.0-32.0 [facility] Comment on above: Result Comment: Canc elled via OM: Order cancelled - Patient discharged Performed By: #### L 500.2500, L100.0100 ####[facility] [address] [place], [address] MCHC Normal 32-36 [facility] Comment on above: Result Comment: Canc elled via OM: Order cancelled - Patient discharged Performed By: #### L 500.2500, L100.0100 ####[facility] [address] [place], [address] MCV Normal 80-94 [facility] Comment on above: Result Comment: Canc elled via OM: Order cancelled - Patient discharged Performed By: #### L 500.2500, L100.0100 ####[facility] [address] [place], [address] NEUT% Normal 47-70 [facility] Comment on above: Result Comment: Canc elled via OM: Order cancelled - Patient discharged Performed By: #### L 500.2500, L100.0100 ####[facility] [address] [place], [address] PLT Normal 150-450 [facility] Comment on above: Result Comment: Canc elled via OM: Order cancelled - Patient discharged Performed By: #### L 500.2500, L100.0100 ####[facility] [address] [place], [address] RBC Normal 4.6-6.2 [facility] Comment on above: Result Comment: Canc elled via OM: Order cancelled - Patient discharged Performed By: #### L 500.2500, L100.0100 ####[facility] [address] [place], [address] RDW CV Normal 11.6-14.6 [facility] Comment on above: Result Comment: Canc elled via OM: Order cancelled - Patient discharged Performed By: #### L 500.2500, L100.0100 ####[facility] [address] [place], [address] RDW SD Normal 35.1-43.9 [facility] Comment on above: Result Comment: Canc elled via OM: Order cancelled - Patient discharged Performed By: #### L 500.2500, L100.0100 ####[facility] [address] [place], [address] WBC Normal 4.4-11.0 [facility] Comment on above: Result Comment: Canc elled via OM: Order cancelled - Patient discharged Performed By: #### L 500.2500, L100.0100 ####[facility] [address] [place], [address] Basic Metabolic Profile (BMP )on 01-30-2025 BUN Normal 4-19 [facility] Comment on above: Result Comment: Canc elled via OM: Order cancelled - Patient discharged Performed By: #### L 100.0100, L500.2500 ####[facility] [address] [place], [address] BUN/CRE Normal 10-20 [facility] Comment on above: Result Comment: Canc elled via OM: Order cancelled - Patient discharged Performed By: #### L 100.0100, L500.2500 ####[facility] [address] [place], [address] Calcium Normal 7.6-11.0 [facility] Comment on above: Result Comment: Canc elled via OM: Order cancelled - Patient discharged Performed By: #### L 100.0100, L500.2500 ####[facility] [address] [place], [address] CL Normal 98-108 [facility] Comment on above: Result Comment: Canc elled via OM: Order cancelled - Patient discharged Performed By: #### L 100.0100, L500.2500 ####[facility] [address] [place], [address] CO2 Normal 21.0-32.0 [facility] Comment on above: Result Comment: Canc elled via OM: Order cancelled - Patient discharged Performed By: #### L 100.0100, L500.2500 ####[facility] [address] [place], [address] CREAT,SERUM Normal 0.70-1.20 [facility] Comment on above: Result Comment: Canc elled via OM: Order cancelled - Patient discharged Performed By: #### L 100.0100, L500.2500 ####[facility] [address] [place], [address] eGFR Normal >60 [facility] Comment on above: Result Comment: Canc elled via OM: Order cancelled - Patient discharged Performed By: #### L 100.0100, L500.2500 ####[facility] [address] [place], [address] GAP Normal 5-15 [facility] Comment on above: Result Comment: Canc elled via OM: Order cancelled - Patient discharged Performed By: #### L 100.0100, L500.2500 ####[facility] [address] [place], [address] GLU Normal 70-99 [facility] Comment on above: Result Comment: Canc elled via OM: Order cancelled - Patient discharged Performed By: #### L 100.0100, L500.2500 ####[facility] [address] [place], [address] Potassium Normal 3.3-5.1 [facility] Comment on above: Result Comment: Canc elled via OM: Order cancelled - Patient discharged Performed By: #### L 100.0100, L500.2500 ####[facility] [address] [place], [address] Basic Metabolic Profile (BMP) Normal 133-145 [facility] Comment on above: Result Comment: Canc elled via OM: Order cancelled - Patient discharged Performed By: #### L 100.0100, L500.2500 ####[facility] [address] [place], [address] CBC W/Diff, Automatedon 09-1 0-2024 Absolute Neut Normal 2.0-7.7 [facility] Comment on above: Result Comment: Canc elled via OM: Order cancelled - Patient discharged Performed By: #### L 100.0100, L500.2500 ####[facility] [address] [place], [address] HCT Normal 40-54 [facility] Comment on above: Result Comment: Canc elled via OM: Order cancelled - Patient discharged Performed By: #### L 100.0100, L500.2500 ####[facility] [address] [place], [address] HGB Normal 13.0-16.5 [facility] Comment on above: Result Comment: Canc elled via OM: Order cancelled - Patient discharged Performed By: #### L 100.0100, L500.2500 ####[facility] [address] [place], [address] MCH Normal 27.0-32.0 [facility] Comment on above: Result Comment: Canc elled via OM: Order cancelled - Patient discharged Performed By: #### L 100.0100, L500.2500 ####[facility] [address] [place], [address] MCHC Normal 32-36 [facility] Comment on above: Result Comment: Canc elled via OM: Order cancelled - Patient discharged Performed By: #### L 100.0100, L500.2500 ####[facility] [address] [place], [address] MCV Normal 80-94 [facility] Comment on above: Result Comment: Canc elled via OM: Order cancelled - Patient discharged Performed By: #### L 100.0100, L500.2500 ####[facility] [address] [place], [address] NEUT% Normal 47-70 [facility] Comment on above: Result Comment: Canc elled via OM: Order cancelled - Patient discharged Performed By: #### L 100.0100, L500.2500 ####[facility] [address] [place], [address] PLT Normal 150-450 [facility] Comment on above: Result Comment: Canc elled via OM: Order cancelled - Patient discharged Performed By: #### L 100.0100, L500.2500 ####[facility] [address] [place], [address] RBC Normal 4.6-6.2 [facility] Comment on above: Result Comment: Canc elled via OM: Order cancelled - Patient discharged Performed By: #### L 100.0100, L500.2500 ####[facility] [address] [place], [address] RDW CV Normal 11.6-14.6 [facility] Comment on above: Result Comment: Canc elled via OM: Order cancelled - Patient discharged Performed By: #### L 100.0100, L500.2500 ####[facility] [address] [place], [address] RDW SD Normal 35.1-43.9 [facility] Comment on above: Result Comment: Canc elled via OM: Order cancelled - Patient discharged Performed By: #### L 100.0100, L500.2500 ####[facility] [address] [place], [address] WBC Normal 4.4-11.0 [facility] Comment on above: Result Comment: Canc elled via OM: Order cancelled - Patient discharged Performed By: #### L 100.0100, L500.2500 ####[facility] [address] [place], [address] Absolute lymphocyte countOrd ered By: Kimberly Pam on 01-29-2025 Lymphocytes Auto (Unsp spec) [#/Vol] 1.11 10*3/uL 0.83-4.51 [facility] Anion gap in Serum or Plasma Ordered By: Kimberly Orozco on 01-29-2025 Anion gap [Moles/Vol] 14 mmol/L 5-15 [facility] Automated lymphocyte count a s percentage of total leukocytesOrdered By: Kimberly Orozco on 01-29-2025 Lymphocytes/100 WBC Auto (Unsp spec) 13.6 % Low 19-41 [facility] BUN/creatinine ratioOrdered By: Kimberly Orozco on 01-29-2025 Urea nitrogen/Creatinine [Mass ratio] 10.6 mg/mg 10-20 [facility] Basic Metabolic Profile (BMP )on 01-29-2025 BUN/CRE 10.6 RATIO Normal 10-20 [facility] Comment on above: Performed By: #### L 500.2500, L100.0100 ####[facility] [address] [place], [address] Calcium [Mass/Vol] 8.6 mg/dL Normal 7.6-11.0 [facility] Comment on above: Performed By: #### L 500.2500, L100.0100 ####[facility] [address] [place], [address] Chloride [Moles/Vol] 96 mmol/L Low 98-108 [facility] Comment on above: Performed By: #### L 500.2500, L100.0100 ####[facility] [address] [place], [address] CO2 [Moles/Vol] 23.8 mmol/L Normal 21.0-32.0 [facility] Comment on above: Performed By: #### L 500.2500, L100.0100 ####[facility] [address] [place], [address] Creatinine [Mass/Vol] 4.06 mg/dL High 0.70-1.20 [facility] Comment on above: Performed By: #### L 500.2500, L100.0100 ####[facility] [address] [place], [address] ECRCL 14.95 ml/min Low 50-250 [facility] Comment on above: Performed By: #### L 500.2500, L100.0100 ####[facility] [address] [place], [address] GAP 14 Normal 5-15 [facility] Comment on above: Performed By: #### L 500.2500, L100.0100 ####[facility] [address] [place], [address] GFR/1.73 sq M.predicted among non-blacks MDRD (S/P/Bld) [Vol rate/Area] 14 mL/min/{1.73_m2} Low >60 [facility] Comment on above: Result Comment: mL/m in/1.73m2 CKD-EPI Creatinine Equation (2020) Performed By: #### L 500.2500, L100.0100 ####[facility] [address] [place], [address] Glucose [Mass/Vol] 218 mg/dL High 70-99 [facility] Comment on above: Performed By: #### L 500.2499, L100.0100 ####[facility] [address] [place], [address] Potassium [Moles/Vol] 4.1 mmol/L Normal 3.3-5.1 [facility] Comment on above: Performed By: #### L 500.2500, L100.0100 ####[facility] [address] [place], [address] Sodium [Moles/Vol] 134 mmol/L Normal 133-145 [facility] Comment on above: Performed By: #### L 500.2500, L100.0100 ####[facility] [address] [place], [address] Urea nitrogen [Mass/Vol] 43 mg/dL High 4-19 [facility] Comment on above: Performed By: #### L 500.2500, L100.0100 ####[facility] [address] [place], [address] Basophil percentageOrdered B y: Kimberly Orozco on 01-29-2025 Basophils/100 WBC (Bld) 0.6 % 0-1 [facility] Bedside Glucoseon 01-29-2025 FINGERSTICK GLU 198 mg/dL High 74-106 [facility] Comment on above: Result Comment: FANG GEMENT OF PATIENT CARE PER NURSING PROTOCOL Performed By: #### L 501.080 ####[facility] [address] [place], [address] FINGERSTICK GLU 207 mg/dL High 74-106 [facility] Comment on above: Result Comment: FANG GEMENT OF PATIENT CARE PER NURSING PROTOCOL Performed By: #### L 501.080 ####[facility] [address] [place], [address] CBC W/Diff, Automatedon Absolute Lymph 1.11 X10 3/uL Normal 0.83-4.51 [facility] Comment on above: Performed By: #### L 500.2500, L100.0100 ####[facility] [address] [place], [address] Absolute Neut 5.6 X10 3/uL Normal 2.0-7.7 [facility] Comment on above: Performed By: #### L 500.2500, L100.0100 ####[facility] [address] [place], [address] Basophils/100 WBC (Bld) 0.6 % Normal 0-1 [facility] Comment on above: Performed By: #### L 500.2500, L100.0100 ####[facility] [address] [place], [address] Eosinophils/100 WBC (Bld) 2.3 % Normal 0-5 [facility] Comment on above: Performed By: #### L 500.2500, L100.0100 ####[facility] [address] [place], [address] Erythrocyte distribution width (RBC) [Ratio] 17.0 % High 11.6-14.6 [facility] Comment on above: Performed By: #### L 500.2500, L100.0100 ####[facility] [address] [place], [address] Hematocrit (Bld) [Volume fraction] 27.8 % Low 40-54 [facility] Comment on above: Performed By: #### L 500.2500, L100.0100 ####[facility] [address] [place], [address] Hemoglobin (Bld) [Mass/Vol] 9.1 g/dL Low 13.0-16.5 [facility] Comment on above: Performed By: #### L 500.2500, L100.0100 ####[facility] [address] [place], [address] IG% 0.900 Normal 0.0-0.9 [facility] Comment on above: Result Comment: IG% - Immature Granulocytes (promyelocytes, myelocytes andmetamyelocytes) > 1% indicates that a LEFT SHIFT is Present. Performed By: #### L 500.2500, L100.0100 ####[facility] [address] [place], [address] Lymphocytes/100 WBC (Bld) 13.6 % Low 19-41 [facility] Comment on above: Performed By: #### L 500.2500, L100.0100 ####[facility] [address] [place], [address] MCH (RBC) [Entitic mass] 30.4 pg Normal 27.0-32.0 [facility] Comment on above: Performed By: #### L 500.2500, L100.0100 ####[facility] [address] [place], [address] MCHC (RBC) [Mass/Vol] 32.7 g/dL Normal 32-36 [facility] Comment on above: Performed By: #### L 500.2500, L100.0100 ####[facility] [address] [place], [address] MCV (RBC) [Entitic vol] 93.0 fL Normal 80-94 [facility] Comment on above: Performed By: #### L 500.2500, L100.0100 ####[facility] [address] [place], [address] Monocytes/100 WBC (Bld) 13.7 % High 0-10 [facility] Comment on above: Performed By: #### L 500.2500, L100.0100 ####[facility] [address] [place], [address] Neutrophils/100 WBC (Bld) 68.9 % Normal 47-70 [facility] Comment on above: Performed By: #### L 500.2500, L100.0100 ####[facility] [address] [place], [address] Nucleated RBC (Bld) [#/Vol] 0 10*3/uL Normal 0-5 [facility] Comment on above: Performed By: #### L 500.2500, L100.0100 ####[facility] [address] [place], [address] Platelet mean volume (Bld) [Entitic vol] 11.7 fL Normal 6.2-12.0 [facility] Comment on above: Performed By: #### L 500.2500, L100.0100 ####[facility] [address] [place], [address] Platelets (Bld) [#/Vol] 137 10*3/uL Low 150-450 [facility] Comment on above: Performed By: #### L 500.2500, L100.0100 ####[facility] [address] [place], [address] RBC (Bld) [#/Vol] 2.99 10*6/uL Low 4.6-6.2 [facility] Comment on above: Performed By: #### L 500.2500, L100.0100 ####[facility] [address] [place], [address] RDW SD 57.5 fl High 35.1-43.9 [facility] Comment on above: Performed By: #### L 500.2500, L100.0100 ####[facility] [address] [place], [address] WBC (Bld) [#/Vol] 8.2 10*3/uL Normal 4.4-11.0 [facility] Comment on above: Performed By: #### L 500.2500, L100.0100 ####[facility] [address] [place], [address] Carbon dioxide, total [Moles /volume] in Central venous bloodOrdered By: Kimberly Orozco on 01-29-2025 CO2 [Moles/Vol] 23.8 mmol/L 21.0-32.0 [facility] Chloride assayOrdered By: Aishwarya Orozco on 01-29-2025 Chloride [Moles/Vol] 96 mmol/L Low 98-108 [facility] Eosinophil percentageOrdered By: Kimberly Orozco on 01-29-2025 Eosinophils/100 WBC (Bld) 2.3 % 0-5 [facility] Erythrocyte distribution wid th ratioOrdered By: Kimberly Orozco on 01-29-2025 Erythrocyte distribution width (RBC) [Ratio] 17.0 % High 11.6-14.6 [facility] Erythrocyte distribution wid th standard deviationOrdered By: Kimberly Orozco on 01-29-2025 Erythrocyte distribution width (RBC) [Ratio] 57.5 fl High 35.1-43.9 [facility] Glomerular filtration rate ( GFR) estimation/1.73 sq m using serum, plasma, or whole bOrdered By: Kimberly Orozco on 01-29-2025 GFR/1.73 sq M.predicted among non-blacks MDRD (S/P/Bld) [Vol rate/Area] 14 mL/min/{1.73_m2} Low >60 [facility] deOrdered By: Jaswant Montgomery on 01-29-2025 Glucose [Mass/Vol] 198 mg/dL High 74-106 [facility] Hematocrit Auto (Bld) [Volum e fraction]Ordered By: Kimberly Orozco on 01-29-2025 Hematocrit (Bld) [Volume fraction] 27.8 % Low 40-54 [facility] Hemoglobin measurementOrdere d By: Kimberly Orozco on 01-29-2025 Hemoglobin (Bld) [Mass/Vol] 9.1 g/dL Low 13.0-16.5 [facility] Immature granulocytes/100 WB C Auto (Bld)Ordered By: Kimberly Orozco 01-29-2025 Immature granulocytes/100 WBC (Bld) 0.900 % 0.0-0.9 [facility] MCV (mean corpuscular volume ) determinationOrdered By: Kimberly Orozco on 01-29-2025 MCV (RBC) [Entitic vol] 93.0 fL 80-94 [facility] Mean corpuscular hemoglobin (MCH) determinationOrdered By: Kimberly Orozco 01-29-2025 MCH (RBC) [Entitic mass] 30.4 pg 27.0-32.0 [facility] Monocyte percentageOrdered B y: Kimberly Orozco on 01-29-2025 Monocytes/100 WBC (Bld) 13.7 % High 0-10 [facility] Neutrophil percentageOrdered By: Kimberly Orozco on 01-29-2025 Neutrophils/100 WBC (Bld) 68.9 % 47-70 [facility] Platelet countOrdered By: Na aishwarya Orozco on 01-29-2025 Platelets (Bld) [#/Vol] 137 10*3/uL Low 150-450 [facility] Potassium measurement (mass/ volume)Ordered By: Kimberly Orozco on 01-29-2025 Potassium (Unsp spec) [Mass/Vol] 4.1 mmol/L 3.3-5.1 [facility] RBC Auto (Bld) [#/Vol]Ordere d By: Kimberly Orozco on 01-29-2025 RBC (Bld) [#/Vol] 2.99 10*6/uL Low 4.6-6.2 [facility] Serum creatinine measurement (mass/volume)Ordered By: Kimberly Orozco on 01-29-2025 Creatinine [Mass/Vol] 4.06 mg/dL High 0.70-1.20 [facility] Serum glucose measurement (m ass/volume)Ordered By: Kimberly Orozco on 01-29-2025 Glucose [Mass/Vol] 218 mg/dL High 70-99 [facility] Serum or plasma calcium lilli urement (mass/volume)Ordered By: Kimberly Orozco on 01-29-2025 Calcium [Mass/Vol] 8.6 mg/dL 7.6-11.0 [facility] Serum or plasma urea nitroge n measurement (mass/volume)Ordered By: Kimberly Orozco on 01-29-2025 Urea nitrogen [Mass/Vol] 43 mg/dL High 4-19 [facility] Sodium levelOrdered By: Kimberly Orozco on 01-29-2025 Sodium [Moles/Vol] 134 mmol/L 133-145 [facility] White blood cell (WBC) count Ordered By: Kimberly Orozco on 01-29-2025 WBC (Bld) [#/Vol] 8.2 10*3/uL 4.4-11.0 [facility] Basic Metabolic Profile (BMP )on 01-28-2025 BUN/CRE 10.4 RATIO Normal 10-20 [facility] Comment on above: Performed By: #### L 100.0100, L500.2500 ####[facility] [address] [place], [address] Calcium [Mass/Vol] 8.2 mg/dL Normal 7.6-11.0 [facility] Comment on above: Performed By: #### L 100.0100, L500.2500 ####[facility] [address] [place], [address] Chloride [Moles/Vol] 93 mmol/L Low 98-108 [facility] Comment on above: Performed By: #### L 100.0100, L500.2500 ####[facility] [address] [place], [address] CO2 [Moles/Vol] 21.9 mmol/L Normal 21.0-32.0 [facility] Comment on above: Performed By: #### L 100.0100, L500.2500 ####[facility] [address] [place], [address] Creatinine [Mass/Vol] 5.58 mg/dL High 0.70-1.20 [facility] Comment on above: Performed By: #### L 100.0100, L500.2500 ####[facility] [address] [place], [address] ECRCL 10.91 ml/min Low 50-250 [facility] Comment on above: Performed By: #### L 100.0100, L500.2500 ####[facility] [address] [place], [address] GAP 15 Normal 5-15 [facility] Comment on above: Performed By: #### L 100.0100, L500.2500 ####[facility] [address] [place], [address] GFR/1.73 sq M.predicted among non-blacks MDRD (S/P/Bld) [Vol rate/Area] 9 mL/min/{1.73_m2} Low >60 [facility] Comment on above: Result Comment: mL/m in/1.73m2 CKD-EPI Creatinine Equation (2020) Performed By: #### L 100.0100, L500.2500 ####[facility] [address] [place], [address] Glucose [Mass/Vol] 158 mg/dL High 70-99 [facility] Comment on above: Performed By: #### L 100.0100, L500.2500 ####[facility] [address] [place], [address] Potassium [Moles/Vol] 5.5 mmol/L High 3.3-5.1 [facility] Comment on above: Performed By: #### L 100.0100, L500.2500 ####[facility] [address] [place], [address] Sodium [Moles/Vol] 130 mmol/L Low 133-145 [facility] Comment on above: Performed By: #### L 100.0100, L500.2500 ####[facility] [address] [place], [address] Urea nitrogen [Mass/Vol] 58 mg/dL High 4-19 [facility] Comment on above: Performed By: #### L 100.0100, L500.2500 ####[facility] [address] [place], [address] Bedside Glucoseon 01-28-2025 FINGERSTICK GLU 208 mg/dL High 74-106 [facility] Comment on above: Result Comment: FANG GEMENT OF PATIENT CARE PER NURSING PROTOCOL Performed By: #### L 501.080 ####[facility] [address] [place], [address] FINGERSTICK GLU 220 mg/dL High 74-106 [facility] Comment on above: Result Comment: FANG GEMENT OF PATIENT CARE PER NURSING PROTOCOL Performed By: #### L 501.080 ####[facility] [address] [place], [address] FINGERSTICK GLU 192 mg/dL High 74-106 [facility] Comment on above: Result Comment: FANG GEMENT OF PATIENT CARE PER NURSING PROTOCOL Performed By: #### L 501.080 ####[facility] [address] [place], [address] FINGERSTICK GLU 148 mg/dL High 74-106 [facility] Comment on above: Result Comment: FANG GEMENT OF PATIENT CARE PER NURSING PROTOCOL Performed By: #### L 501.080 ####[facility] [address] [place], [address] CBC W/Diff, Automatedon 09-0 8-2024 Absolute Lymph 1.26 X10 3/uL Normal 0.83-4.51 [facility] Comment on above: Performed By: #### L 100.0100, L500.2500 ####[facility] [address] [place], [address] Absolute Neut 6.2 X10 3/uL Normal 2.0-7.7 [facility] Comment on above: Performed By: #### L 100.0100, L500.2500 ####[facility] [address] [place], [address] Basophils/100 WBC (Bld) 0.6 % Normal 0-1 [facility] Comment on above: Performed By: #### L 100.0100, L500.2500 ####[facility] [address] [place], [address] Eosinophils/100 WBC (Bld) 2.1 % Normal 0-5 [facility] Comment on above: Performed By: #### L 100.0100, L500.2500 ####[facility] [address] [place], [address] Erythrocyte distribution width (RBC) [Ratio] 15.4 % High 11.6-14.6 [facility] Comment on above: Performed By: #### L 100.0100, L500.2500 ####[facility] [address] [place], [address] Hematocrit (Bld) [Volume fraction] 22.4 % Low 40-54 [facility] Comment on above: Performed By: #### L 100.0100, L500.2500 ####[facility] [address] [place], [address] Hemoglobin (Bld) [Mass/Vol] 7.3 g/dL Low 13.0-16.5 [facility] Comment on above: Performed By: #### L 100.0100, L500.2500 ####[facility] [address] [place], [address] IG% 0.600 Normal 0.0-0.9 [facility] Comment on above: Result Comment: IG% - Immature Granulocytes (promyelocytes, myelocytes andmetamyelocytes) > 1% indicates that a LEFT SHIFT is Present. Performed By: #### L 100.0100, L500.2500 ####[facility] [address] [place], [address] Lymphocytes/100 WBC (Bld) 14.0 % Low 19-41 [facility] Comment on above: Performed By: #### L 100.0100, L500.2500 ####[facility] [address] [place], [address] MCH (RBC) [Entitic mass] 31.2 pg Normal 27.0-32.0 [facility] Comment on above: Performed By: #### L 100.0100, L500.2500 ####[facility] [address] [place], [address] MCHC (RBC) [Mass/Vol] 32.6 g/dL Normal 32-36 [facility] Comment on above: Performed By: #### L 100.0100, L500.2500 ####[facility] [address] [place], [address] MCV (RBC) [Entitic vol] 95.7 fL High 80-94 [facility] Comment on above: Performed By: #### L 100.0100, L500.2500 ####[facility] [address] [place], [address] Monocytes/100 WBC (Bld) 13.3 % High 0-10 [facility] Comment on above: Performed By: #### L 100.0100, L500.2500 ####[facility] [address] [place], [address] Neutrophils/100 WBC (Bld) 69.4 % Normal 47-70 [facility] Comment on above: Performed By: #### L 100.0100, L500.2500 ####[facility] [address] [place], [address] Nucleated RBC (Bld) [#/Vol] 0 10*3/uL Normal 0-5 [facility] Comment on above: Performed By: #### L 100.0100, L500.2500 ####[facility] [address] [place], [address] Platelet mean volume (Bld) [Entitic vol] 11.4 fL Normal 6.2-12.0 [facility] Comment on above: Performed By: #### L 100.0100, L500.2500 ####[facility] [address] [place], [address] Platelets (Bld) [#/Vol] 135 10*3/uL Low 150-450 [facility] Comment on above: Performed By: #### L 100.0100, L500.2500 ####[facility] [address] [place], [address] RBC (Bld) [#/Vol] 2.34 10*6/uL Low 4.6-6.2 [facility] Comment on above: Performed By: #### L 100.0100, L500.2500 ####[facility] [address] [place], [address] RDW SD 53.7 fl High 35.1-43.9 [facility] Comment on above: Performed By: #### L 100.0100, L500.2500 ####[facility] [address] [place], [address] WBC (Bld) [#/Vol] 9.0 10*3/uL Normal 4.4-11.0 [facility] Comment on above: Performed By: #### L 100.0100, L500.2500 ####[facility] [address] [place], [address] Consultation - Nephrologyon 01-28-2025 Consultation - Nephrology Normal [facility] Electrocardiogram reportOrde red By: Zenaida Cooper on 01-28-[address] [facility] Other Phone: HH, Hemoglobin AND Hematocri ton 01-28-2025 Hematocrit (Bld) [Volume fraction] 32.0 % Low 40-54 [facility] Comment on above: Performed By: #### L 100.0600 ####[facility] [address] [place], [address] Hemoglobin (Bld) [Mass/Vol] 10.7 g/dL Low 13.0-16.5 [facility] Comment on above: Performed By: #### L 100.0600 ####[facility] [address] [place], [address] Basic Metabolic Profile (BMP )on 01-27-2025 BUN/CRE 9.4 RATIO Low 10-20 [facility] Comment on above: Performed By: #### L 500.2500, L100.0100 ####[facility] [address] [place], [address] Calcium [Mass/Vol] 8.7 mg/dL Normal 7.6-11.0 [facility] Comment on above: Performed By: #### L 500.2500, L100.0100 ####[facility] [address] [place], [address] Chloride [Moles/Vol] 97 mmol/L Low 98-108 [facility] Comment on above: Performed By: #### L 500.2500, L100.0100 ####[facility] [address] [place], [address] CO2 [Moles/Vol] 23.2 mmol/L Normal 21.0-32.0 [facility] Comment on above: Performed By: #### L 500.2500, L100.0100 ####[facility] [address] [place], [address] Creatinine [Mass/Vol] 4.35 mg/dL High 0.70-1.20 [facility] Comment on above: Performed By: #### L 500.2500, L100.0100 ####[facility] [address] [place], [address] ECRCL 13.94 ml/min Low 50-250 [facility] Comment on above: Performed By: #### L 500.2500, L100.0100 ####[facility] [address] [place], [address] GAP 15 Normal 5-15 [facility] Comment on above: Performed By: #### L 500.2500, L100.0100 ####[facility] [address] [place], [address] GFR/1.73 sq M.predicted among non-blacks MDRD (S/P/Bld) [Vol rate/Area] 12 mL/min/{1.73_m2} Low >60 [facility] Comment on above: Result Comment: mL/m in/1.73m2 CKD-EPI Creatinine Equation (2020) Performed By: #### L 500.2500, L100.0100 ####[facility] [address] [place], [address] Glucose [Mass/Vol] 144 mg/dL High 70-99 [facility] Comment on above: Performed By: #### L 500.2500, L100.0100 ####[facility] [address] [place], [address] Potassium [Moles/Vol] 5.2 mmol/L High 3.3-5.1 [facility] Comment on above: Performed By: #### L 500.2500, L100.0100 ####[facility] [address] [place], [address] Sodium [Moles/Vol] 134 mmol/L Normal 133-145 [facility] Comment on above: Performed By: #### L 500.2500, L100.0100 ####[facility] [address] [place], [address] Urea nitrogen [Mass/Vol] 41 mg/dL High 4-19 [facility] Comment on above: Performed By: #### L 500.2500, L100.0100 ####[facility] [address] [place], [address] Bedside Glucoseon 01-27-2025 FINGERSTICK GLU 217 mg/dL High 74-106 [facility] Comment on above: Result Comment: FANG GEMENT OF PATIENT CARE PER NURSING PROTOCOL Performed By: #### L 501.080 ####[facility] [address] [place], [address] FINGERSTICK GLU 159 mg/dL High 74-106 [facility] Comment on above: Result Comment: FANG GEMENT OF PATIENT CARE PER NURSING PROTOCOL Performed By: #### L 501.080 ####[facility] [address] [place], [address] FINGERSTICK GLU 156 mg/dL High 74-106 [facility] Comment on above: Result Comment: FANG GEMENT OF PATIENT CARE PER NURSING PROTOCOL Performed By: #### L 501.080 ####[facility] [address] [place], [address] FINGERSTICK GLU 151 mg/dL High 74-106 [facility] Comment on above: Result Comment: FANG GEMENT OF PATIENT CARE PER NURSING PROTOCOL Performed By: #### L 501.080 ####[facility] [address] [place], [address] CBC W/Diff, Automatedon 09-0 7-2025 Absolute Lymph 1.03 X10 3/uL Normal 0.83-4.51 [facility] Comment on above: Performed By: #### L 500.2500, L100.0100 ####[facility] [address] [place], [address] Absolute Neut 10.6 X10 3/uL High 2.0-7.7 [facility] Comment on above: Performed By: #### L 500.2500, L100.0100 ####[facility] [address] [place], [address] Basophils/100 WBC (Bld) 0.5 % Normal 0-1 [facility] Comment on above: Performed By: #### L 500.2500, L100.0100 ####[facility] [address] [place], [address] Eosinophils/100 WBC (Bld) 0.3 % Normal 0-5 [facility] Comment on above: Performed By: #### L 500.2500, L100.0100 ####[facility] [address] [place], [address] Erythrocyte distribution width (RBC) [Ratio] 15.7 % High 11.6-14.6 [facility] Comment on above: Performed By: #### L 500.2500, L100.0100 ####[facility] [address] [place], [address] Hematocrit (Bld) [Volume fraction] 27.0 % Low 40-54 [facility] Comment on above: Performed By: #### L 500.2500, L100.0100 ####[facility] [address] [place], [address] Hemoglobin (Bld) [Mass/Vol] 8.5 g/dL Low 13.0-16.5 [facility] Comment on above: Performed By: #### L 500.2500, L100.0100 ####[facility] [address] [place], [address] IG% 0.600 Normal 0.0-0.9 [facility] Comment on above: Result Comment: IG% - Immature Granulocytes (promyelocytes, myelocytes andmetamyelocytes) > 1% indicates that a LEFT SHIFT is Present. Performed By: #### L 500.2500, L100.0100 ####[facility] [address] [place], [address] Lymphocytes/100 WBC (Bld) 7.9 % Low 19-41 [facility] Comment on above: Performed By: #### L 500.2500, L100.0100 ####[facility] [address] [place], [address] MCH (RBC) [Entitic mass] 30.8 pg Normal 27.0-32.0 [facility] Comment on above: Performed By: #### L 500.2500, L100.0100 ####[facility] [address] [place], [address] MCHC (RBC) [Mass/Vol] 31.5 g/dL Low 32-36 [facility] Comment on above: Performed By: #### L 500.2500, L100.0100 ####[facility] [address] [place], [address] MCV (RBC) [Entitic vol] 97.8 fL High 80-94 [facility] Comment on above: Performed By: #### L 500.2500, L100.0100 ####[facility] [address] [place], [address] Monocytes/100 WBC (Bld) 9.5 % Normal 0-10 [facility] Comment on above: Performed By: #### L 500.2500, L100.0100 ####[facility] [address] [place], [address] Neutrophils/100 WBC (Bld) 81.2 % High 47-70 [facility] Comment on above: Performed By: #### L 500.2500, L100.0100 ####[facility] [address] [place], [address] Nucleated RBC (Bld) [#/Vol] 0 10*3/uL Normal 0-5 [facility] Comment on above: Performed By: #### L 500.2500, L100.0100 ####[facility] [address] [place], [address] Platelet mean volume (Bld) [Entitic vol] 11.8 fL Normal 6.2-12.0 [facility] Comment on above: Performed By: #### L 500.2500, L100.0100 ####[facility] [address] [place], [address] Platelets (Bld) [#/Vol] 144 10*3/uL Low 150-450 [facility] Comment on above: Performed By: #### L 500.2500, L100.0100 ####[facility] [address] [place], [address] RBC (Bld) [#/Vol] 2.76 10*6/uL Low 4.6-6.2 [facility] Comment on above: Performed By: #### L 500.2500, L100.0100 ####[facility] [address] [place], [address] RDW SD 55.6 fl High 35.1-43.9 [facility] Comment on above: Performed By: #### L 500.2500, L100.0100 ####[facility] [address] [place], [address] WBC (Bld) [#/Vol] 13.0 10*3/uL High 4.4-11.0 [facility] Comment on above: Performed By: #### L 500.2500, L100.0100 ####[facility] [address] [place], [address] Basic Metabolic Profile (BMP )on 01-26-2025 BUN/CRE 9.2 RATIO Low 10-20 [facility] Comment on above: Performed By: #### L 500.2500 ####[facility] [address] [place], [address] Calcium [Mass/Vol] 9.0 mg/dL Normal 7.6-11.0 [facility] Comment on above: Performed By: #### L 500.2500 ####[facility] [address] [place], [address] Chloride [Moles/Vol] 99 mmol/L Normal 98-108 [facility] Comment on above: Performed By: #### L 500.2500 ####[facility] [address] [place], [address] CO2 [Moles/Vol] 26.1 mmol/L Normal 21.0-32.0 [facility] Comment on above: Performed By: #### L 500.2500 ####[facility] [address] [place], [address] Creatinine [Mass/Vol] 3.63 mg/dL High 0.70-1.20 [facility] Comment on above: Performed By: #### L 500.2500 ####[facility] [address] [place], [address] ECRCL 16.71 ml/min Low 50-250 [facility] Comment on above: Performed By: #### L 500.2500 ####[facility] [address] [place], [address] GAP 11 Normal 5-15 [facility] Comment on above: Performed By: #### L 500.2500 ####[facility] [address] [place], [address] GFR/1.73 sq M.predicted among non-blacks MDRD (S/P/Bld) [Vol rate/Area] 16 mL/min/{1.73_m2} Low >60 [facility] Comment on above: Result Comment: mL/m in/1.73m2 CKD-EPI Creatinine Equation (2020) Performed By: #### L 500.2500 ####[facility] [address] [place], [address] Glucose [Mass/Vol] 106 mg/dL High 70-99 [facility] Comment on above: Performed By: #### L 500.2500 ####[facility] [address] [place], [address] Potassium [Moles/Vol] 4.2 mmol/L Normal 3.3-5.1 [facility] Comment on above: Performed By: #### L 500.2500 ####[facility] [address] [place], [address] Sodium [Moles/Vol] 136 mmol/L Normal 133-145 [facility] Comment on above: Performed By: #### L 500.2500 ####[facility] [address] [place], [address] Urea nitrogen [Mass/Vol] 33 mg/dL High 4-19 [facility] Comment on above: Performed By: #### L 500.2500 ####[facility] [address] [place], [address] BUN/CRE 9.9 RATIO Low 10-20 [facility] Comment on above: Performed By: #### L 100.0100, L500.2500 ####[facility] [address] [place], [address] Calcium [Mass/Vol] 8.9 mg/dL Normal 7.6-11.0 [facility] Comment on above: Performed By: #### L 100.0100, L500.2500 ####[facility] [address] [place], [address] Chloride [Moles/Vol] 95 mmol/L Low 98-108 [facility] Comment on above: Performed By: #### L 100.0100, L500.2500 ####[facility] [address] [place], [address] CO2 [Moles/Vol] 25.7 mmol/L Normal 21.0-32.0 [facility] Comment on above: Performed By: #### L 100.0100, L500.2500 ####[facility] [address] [place], [address] Creatinine [Mass/Vol] 5.65 mg/dL High 0.70-1.20 [facility] Comment on above: Performed By: #### L 100.0100, L500.2500 ####[facility] [address] [place], [address] ECRCL 10.84 ml/min Low 50-250 [facility] Comment on above: Performed By: #### L 100.0100, L500.2500 ####[facility] [address] [place], [address] GAP 14 Normal 5-15 [facility] Comment on above: Performed By: #### L 100.0100, L500.2500 ####[facility] [address] [place], [address] GFR/1.73 sq M.predicted among non-blacks MDRD (S/P/Bld) [Vol rate/Area] 9 mL/min/{1.73_m2} Low >60 [facility] Comment on above: Result Comment: mL/m in/1.73m2 CKD-EPI Creatinine Equation (2020) Performed By: #### L 100.0100, L500.2500 ####[facility] [address] [place], [address] Glucose [Mass/Vol] 150 mg/dL High 70-99 [facility] Comment on above: Performed By: #### L 100.0100, L500.2500 ####[facility] [address] [place], [address] Potassium [Moles/Vol] 5.0 mmol/L Normal 3.3-5.1 [facility] Comment on above: Performed By: #### L 100.0100, L500.2500 ####[facility] [address] [place], [address] Sodium [Moles/Vol] 134 mmol/L Normal 133-145 [facility] Comment on above: Performed By: #### L 100.0100, L500.2500 ####[facility] [address] [place], [address] Urea nitrogen [Mass/Vol] 56 mg/dL High 4-19 [facility] Comment on above: Performed By: #### L 100.0100, L500.2500 ####[facility] [address] [place], [address] Bedside Glucoseon 01-26-2025 FINGERSTICK GLU 138 mg/dL High 74-[address] [place] [address] Comment on above: Result Comment: FANG GEMENT OF PATIENT CARE PER NURSING PROTOCOL Performed By: #### L 501.080 ####[facility] [address] [place], [address] FINGERSTICK GLU 130 mg/dL High 74-106 [facility] Comment on above: Result Comment: FANG GEMENT OF PATIENT CARE PER NURSING PROTOCOL Performed By: #### L 501.080 ####[facility] [address] [place], [address] FINGERSTICK GLU 130 mg/dL High -106 [facility] Comment on above: Result Comment: FANG GEMENT OF PATIENT CARE PER NURSING PROTOCOL Performed By: #### L 501.080 ####[facility] [address] [place], [address] FINGERSTICK GLU 153 mg/dL High [address] [address] Comment on above: Result Comment: FANG GEMENT OF PATIENT CARE PER NURSING PROTOCOL Performed By: #### L 501.080 ####[facility] [address] [place], [address] CBC W/Diff, Automatedon 09 Absolute Lymph 1.64 X10 3/uL Normal 0.83-4.51 [facility] Comment on above: Performed By: #### L 100.0100, L500.2500 ####[facility] [address] [place], [address] Absolute Neut 7.3 X10 3/uL Normal 2.0-7.7 [facility] Comment on above: Performed By: #### L 100.0100, L500.2500 ####[facility] [address] [place], [address] Basophils/100 WBC (Bld) 0.6 % Normal 0-1 [facility] Comment on above: Performed By: #### L 100.0100, L500.2500 ####[facility] [address] [place], [address] Eosinophils/100 WBC (Bld) 1.1 % Normal 0-5 [facility] Comment on above: Performed By: #### L 100.0100, L500.2500 ####[facility] [address] [place], [address] Erythrocyte distribution width (RBC) [Ratio] 15.3 % High 11.6-14.6 [facility] Comment on above: Performed By: #### L 100.0100, L500.2500 ####[facility] [address] [place], [address] Hematocrit (Bld) [Volume fraction] 28.0 % Low 40-54 [facility] Comment on above: Performed By: #### L 100.0100, L500.2500 ####[facility] [address] [place], [address] Hemoglobin (Bld) [Mass/Vol] 9.1 g/dL Low 13.0-16.5 [facility] Comment on above: Performed By: #### L 100.0100, L500.2500 ####[facility] [address] [place], [address] IG% 0.500 Normal 0.0-0.9 [facility] Comment on above: Result Comment: IG% - Immature Granulocytes (promyelocytes, myelocytes andmetamyelocytes) > 1% indicates that a LEFT SHIFT is Present. Performed By: #### L 100.0100, L500.2500 ####[facility] [address] [place], [address] Lymphocytes/100 WBC (Bld) 15.9 % Low 19-41 [facility] Comment on above: Performed By: #### L 100.0100, L500.2500 ####[facility] [address] [place], [address] MCH (RBC) [Entitic mass] 30.8 pg Normal 27.0-32.0 [facility] Comment on above: Performed By: #### L 100.0100, L500.2500 ####[facility] [address] [place], [address] MCHC (RBC) [Mass/Vol] 32.5 g/dL Normal 32-36 [facility] Comment on above: Performed By: #### L 100.0100, L500.2500 ####[facility] [address] [place], [address] MCV (RBC) [Entitic vol] 94.9 fL High 80-94 [facility] Comment on above: Performed By: #### L 100.0100, L500.2500 ####[facility] [address] [place], [address] Monocytes/100 WBC (Bld) 10.8 % High 0-10 [facility] Comment on above: Performed By: #### L 100.0100, L500.2500 ####[facility] [address] [place], [address] Neutrophils/100 WBC (Bld) 71.1 % High 47-70 [facility] Comment on above: Performed By: #### L 100.0100, L500.2500 ####[facility] [address] [place], [address] Nucleated RBC (Bld) [#/Vol] 0 10*3/uL Normal 0-5 [facility] Comment on above: Performed By: #### L 100.0100, L500.2500 ####[facility] [address] [place], [address] Platelet mean volume (Bld) [Entitic vol] 11.9 fL Normal 6.2-12.0 [facility] Comment on above: Performed By: #### L 100.0100, L500.2500 ####[facility] [address] [place], [address] Platelets (Bld) [#/Vol] 163 10*3/uL Normal 150-450 [facility] Comment on above: Performed By: #### L 100.0100, L500.2500 ####[facility] [address] [place], [address] RBC (Bld) [#/Vol] 2.95 10*6/uL Low 4.6-6.2 [facility] Comment on above: Performed By: #### L 100.0100, L500.2500 ####[facility] [address] [place], [address] RDW SD 52.7 fl High 35.1-43.9 [facility] Comment on above: Performed By: #### L 100.0100, L500.2500 ####[facility] [address] [place], [address] WBC (Bld) [#/Vol] 10.3 10*3/uL Normal 4.4-11.0 [facility] Comment on above: Performed By: #### L 100.0100, L500.2500 ####[facility] [address] [place], [address] Femur Min 2 Viewson 01-27-20 25 Femur Min [address] [facility] MR/POSTOP.ANEon 01-26-2025 MR/POSTOP.ANE Normal [facility] MR/[id number] 01-26-2025 MR/POSTOPAN2 Normal [facility] Operative Reporton Operative Report Normal [facility] 12 Lead EKGon 01-25-[address] [facility] Absolute lymphocyte countOrd ered By: Beau Dunlap on 01-25-2025 Lymphocytes Auto (Unsp spec) [#/Vol] 1.22 10*3/uL 0.83-4.51 [facility] Anion gap in Serum or Plasma Ordered By: Beau Dunlap on 01-25-2025 Anion gap [Moles/Vol] 13 mmol/L 5-15 [facility] Automated lymphocyte count a s percentage of total leukocytesOrdered By: Beau Dunlap on 01-25-2025 Lymphocytes/100 WBC Auto (Unsp spec) 18.0 % Low 19-41 [facility] BRCon 01-25-[address] [facility] Comment on above: Result Comment: [id number] AP RC TRANSFUSED 01/28/25 [id number] AP RC TRANSFUSED 01/28/25 1120 Performed By: #### B RC ####[facility] [address] [place], [address] BUN/creatinine ratioOrdered By: Beau Dunlap on 01-25-2025 Urea nitrogen/Creatinine [Mass ratio] 9.3 mg/mg Low 10-20 [facility] Basic Metabolic Profile (BMP )on 01-25-2025 BUN/CRE 9.3 RATIO Low 10-20 [facility] Comment on above: Performed By: #### L 100.0100, L500.2500 ####[facility] [address] [place], [address] Calcium [Mass/Vol] 8.9 mg/dL Normal 7.6-11.0 [facility] Comment on above: Performed By: #### L 100.0100, L500.2500 ####[facility] [address] [place], [address] Chloride [Moles/Vol] 97 mmol/L Low 98-108 [facility] Comment on above: Performed By: #### L 100.0100, L500.2500 ####[facility] [address] [place], [address] CO2 [Moles/Vol] 27.0 mmol/L Normal 21.0-32.0 [facility] Comment on above: Performed By: #### L 100.0100, L500.2500 ####[facility] [address] [place], [address] Creatinine [Mass/Vol] 5.11 mg/dL High 0.70-1.20 [facility] Comment on above: Performed By: #### L 100.0100, L500.2500 ####[facility] [address] [place], [address] ECRCL 12.02 ml/min Low 50-250 [facility] Comment on above: Performed By: #### L 100.0100, L500.2500 ####[facility] [address] [place], [address] GAP 13 Normal 5-15 [facility] Comment on above: Performed By: #### L 100.0100, L500.2500 ####[facility] [address] [place], [address] GFR/1.73 sq M.predicted among non-blacks MDRD (S/P/Bld) [Vol rate/Area] 10 mL/min/{1.73_m2} Low >60 [facility] Comment on above: Result Comment: mL/m in/1.73m2 CKD-EPI Creatinine Equation (2020) Performed By: #### L 100.0100, L500.2500 ####[facility] [address] [place], [address] Glucose [Mass/Vol] 213 mg/dL High 70-99 [facility] Comment on above: Performed By: #### L 100.0100, L500.2500 ####[facility] [address] [place], [address] Potassium [Moles/Vol] 4.4 mmol/L Normal 3.3-5.1 [facility] Comment on above: Performed By: #### L 100.0100, L500.2500 ####[facility] [address] [place], [address] Sodium [Moles/Vol] 136 mmol/L Normal 133-145 [facility] Comment on above: Performed By: #### L 100.0100, L500.2500 ####[facility] [address] [place], [address] Urea nitrogen [Mass/Vol] 47 mg/dL High 4-19 [facility] Comment on above: Performed By: #### L 100.0100, L500.2500 ####[facility] [address] [place], [address] Basophil percentageOrdered B y: Beau Dunlap on 01-25-2025 Basophils/100 WBC (Bld) 0.7 % 0-1 [facility] Bedside Glucoseon 01-25-2025 FINGERSTICK GLU 179 mg/dL High 74-106 [facility] Comment on above: Result Comment: FANG VAZQUEZ OF PATIENT CARE PER NURSING PROTOCOL Performed By: #### L 501.080 ####[facility] [address] [place], [address] CBC W/Diff, Automatedon Absolute Lymph 1.22 X10 3/uL Normal 0.83-4.51 [facility] Comment on above: Performed By: #### L 100.0100, L500.2500 ####[facility] [address] [place], [address] Absolute Neut 4.7 X10 3/uL Normal 2.0-7.7 [facility] Comment on above: Performed By: #### L 100.0100, L500.2500 ####[facility] [address] [place], [address] Basophils/100 WBC (Bld) 0.7 % Normal 0-1 [facility] Comment on above: Performed By: #### L 100.0100, L500.2500 ####[facility] [address] [place], [address] Eosinophils/100 WBC (Bld) 2.4 % Normal 0-5 [facility] Comment on above: Performed By: #### L 100.0100, L500.2500 ####[facility] [address] [place], [address] Erythrocyte distribution width (RBC) [Ratio] 15.5 % High 11.6-14.6 [facility] Comment on above: Performed By: #### L 100.0100, L500.2500 ####[facility] [address] [place], [address] Hematocrit (Bld) [Volume fraction] 29.9 % Low 40-54 [facility] Comment on above: Performed By: #### L 100.0100, L500.2500 ####[facility] [address] [place], [address] Hemoglobin (Bld) [Mass/Vol] 9.9 g/dL Low 13.0-16.5 [facility] Comment on above: Performed By: #### L 100.0100, L500.2500 ####[facility] [address] [place], [address] IG% 0.400 Normal 0.0-0.9 [facility] Comment on above: Result Comment: IG% - Immature Granulocytes (promyelocytes, myelocytes andmetamyelocytes) > 1% indicates that a LEFT SHIFT is Present. Performed By: #### L 100.0100, L500.2500 ####[facility] [address] [place], [address] Lymphocytes/100 WBC (Bld) 18.0 % Low 19-41 [facility] Comment on above: Performed By: #### L 100.0100, L500.2500 ####[facility] [address] [place], [address] MCH (RBC) [Entitic mass] 31.3 pg Normal 27.0-32.0 [facility] Comment on above: Performed By: #### L 100.0100, L500.2500 ####[facility] [address] [place], [address] MCHC (RBC) [Mass/Vol] 33.1 g/dL Normal 32-36 [facility] Comment on above: Performed By: #### L 100.0100, L500.2500 ####[facility] [address] [place], [address] MCV (RBC) [Entitic vol] 94.6 fL High 80-94 [facility] Comment on above: Performed By: #### L 100.0100, L500.2500 ####[facility] [address] [place], [address] Monocytes/100 WBC (Bld) 9.6 % Normal 0-10 [facility] Comment on above: Performed By: #### L 100.0100, L500.2500 ####[facility] [address] [place], [address] Neutrophils/100 WBC (Bld) 68.9 % Normal 47-70 [facility] Comment on above: Performed By: #### L 100.0100, L500.2500 ####[facility] [address] [place], [address] Nucleated RBC (Bld) [#/Vol] 0 10*3/uL Normal 0-5 [facility] Comment on above: Performed By: #### L 100.0100, L500.2500 ####[facility] [address] [place], [address] Platelet mean volume (Bld) [Entitic vol] 10.6 fL Normal 6.2-12.0 [facility] Comment on above: Performed By: #### L 100.0100, L500.2500 ####[facility] [address] [place], [address] Platelets (Bld) [#/Vol] 164 10*3/uL Normal 150-450 [facility] Comment on above: Performed By: #### L 100.0100, L500.2500 ####[facility] [address] [place], [address] RBC (Bld) [#/Vol] 3.16 10*6/uL Low 4.6-6.2 [facility] Comment on above: Performed By: #### L 100.0100, L500.2500 ####[facility] [address] [place], [address] RDW SD 54.0 fl High 35.1-43.9 [facility] Comment on above: Performed By: #### L 100.0100, L500.2500 ####[facility] [address] [place], [address] WBC (Bld) [#/Vol] 6.8 10*3/uL Normal 4.4-11.0 [facility] Comment on above: Performed By: #### L 100.0100, L500.2500 ####[facility] [address] [place], [address] Carbon dioxide, total [Moles /volume] in Central venous bloodOrdered By: Beau Dunlap on 01-25-2025 CO2 [Moles/Vol] 27.0 mmol/L 21.0-32.0 [facility] Chest 1 Viewon 01-25-2025 [address] [facility] Chloride assayOrdered By: Xavier Dunlap on 01-25-2025 Chloride [Moles/Vol] 97 mmol/L Low 98-108 [facility] Consultation - Orthopedicson 01-25-2025 Consultation - Orthopedics Normal [facility] Consultation - Orthopedics Normal [facility] Emergency Department Summary on 01-25-2025 Emergency [address] Normal [facility] Eosinophil percentageOrdered By: Beau Dunlap on 01-25-2025 Eosinophils/100 WBC (Bld) 2.4 % 0-5 [facility] Erythrocyte distribution wid th ratioOrdered By: Beau Dunlap on 01-25-2025 Erythrocyte distribution width (RBC) [Ratio] 15.5 % High 11.6-14.6 [facility] Erythrocyte distribution wid th standard deviationOrdered By: Beau Dunlap on 01-25-2025 Erythrocyte distribution width (RBC) [Ratio] 54.0 fl High 35.1-43.9 [facility] Glomerular filtration rate ( GFR) estimation/1.73 sq m using serum, plasma, or whole bOrdered By: Beau Dunlap on 01-25-2025 GFR/1.73 sq M.predicted among non-blacks MDRD (S/P/Bld) [Vol rate/Area] 10 mL/min/{1.73_m2} Low >60 [facility] H AND P Exam - Hospitaliston 01-25-2025 H&P Exam - Hospitalist Normal [facility] HIP, UNI W/ Pelvis 2-3 Views on 01-25-2025 HIP, UNI W/ Pelvis 2-[address] [facility] Hematocrit Auto (Bld) [Volum e fraction]Ordered By: Beau Dunlap on 01-25-2025 Hematocrit (Bld) [Volume fraction] 29.9 % Low 40-54 [facility] Hemoglobin measurementOrdere d By: Beau Dunlap on 01-25-2025 Hemoglobin (Bld) [Mass/Vol] 9.9 g/dL Low 13.0-16.5 [facility] Immature granulocytes/100 WB C Auto (Bld)Ordered By: Beau Dunlap on 01-25-2025 Immature granulocytes/100 WBC (Bld) 0.400 % 0.0-0.9 [facility] Knee 1 or 2 Viewson 01-26-20 Knee 1 or [address] [facility] MCV (mean corpuscular volume ) determinationOrdered By: Beau Dunlap on 01-25-2025 MCV (RBC) [Entitic vol] 94.6 fL High 80-94 [facility] Mean corpuscular hemoglobin (MCH) determinationOrdered By: Beau Dunlap on 01-25-2025 MCH (RBC) [Entitic mass] 31.3 pg 27.0-32.0 [facility] Monocyte percentageOrdered B y: Beau Dunlap on 01-25-2025 Monocytes/100 WBC (Bld) 9.6 % 0-10 [facility] Neutrophil percentageOrdered By: Beau Dunlap on 01-25-2025 Neutrophils/100 WBC (Bld) 68.9 % 47-70 [facility] Platelet countOrdered By: Xavier Dunlap on 01-25-2025 Platelets (Bld) [#/Vol] 164 10*3/uL 150-450 [facility] Potassium measurement (mass/ volume)Ordered By: Beau Dunlap on 01-25-2025 Potassium (Unsp spec) [Mass/Vol] 4.4 mmol/L 3.3-5.1 [facility] RBC Auto (Bld) [#/Vol]Ordere d By: Beau Dunlap on 01-25-2025 RBC (Bld) [#/Vol] 3.16 10*6/uL Low 4.6-6.2 [facility] Serum creatinine measurement (mass/volume)Ordered By: Beau Dunlap on 01-25-2025 Creatinine [Mass/Vol] 5.11 mg/dL High 0.70-1.20 [facility] Serum glucose measurement (m ass/volume)Ordered By: Beau Dunlap on 01-25-2025 Glucose [Mass/Vol] 213 mg/dL High 70-99 [facility] Serum or plasma calcium lilli urement (mass/volume)Ordered By: Beau Dunlap on 01-25-2025 Calcium [Mass/Vol] 8.9 mg/dL 7.6-11.0 [facility] Serum or plasma urea nitroge n measurement (mass/volume)Ordered By: Beau Dunlap on 01-25-2025 Urea nitrogen [Mass/Vol] 47 mg/dL High 4-19 [facility] Sodium levelOrdered By: Beau Dunlap on 01-25-2025 Sodium [Moles/Vol] 136 mmol/L 133-145 [facility] Type AND Screenon 01-25-2025 ABO and Rh group Nom (Bld) Blood group A Rh(D) positive Normal [facility] Comment on above: Order Comment: S Performed By: #### B TS ####[facility] [address] [place], [place], [id number] White blood cell (WBC) count Ordered By: Beau Dunlap on 01-25-2025 WBC (Bld) [#/Vol] 6.8 10*3/uL 4.4-11.0 [facility] Absolute lymphocyte countOrd ered By: Nando Wiggins on 01-23-2025 Lymphocytes Auto (Unsp spec) [#/Vol] 1.42 10*3/uL 0.83-4.51 [facility] Anion gap in Serum or Plasma Ordered By: Nando Wiggins on 01-23-2025 Anion gap [Moles/Vol] 14 mmol/L 5-15 [facility] Automated lymphocyte count a s percentage of total leukocytesOrdered By: Nando Wiggins on 01-23-2025 Lymphocytes/100 WBC Auto (Unsp spec) 19.1 % 19-41 [facility] BUN/creatinine ratioOrdered By: Nando Wiggins on 01-23-2025 Urea nitrogen/Creatinine [Mass ratio] 9.7 mg/mg Low 10-20 [facility] Basophil percentageOrdered B y: Nando Wiggins on 01-23-2025 Basophils/100 WBC (Bld) 0.8 % 0-1 [facility] Carbon dioxide, total [Moles /volume] in Central venous bloodOrdered By: Nando Wiggins on 01-23-2025 CO2 [Moles/Vol] 27.0 mmol/L 21.0-32.0 [facility] Chloride assayOrdered By: Kathie Wiggins on 01-23-2025 Chloride [Moles/Vol] 92 mmol/L Low 98-108 [facility] Eosinophil percentageOrdered By: Nando Wiggins on 01-23-2025 Eosinophils/100 WBC (Bld) 2.7 % 0-5 [facility] Erythrocyte distribution wid th ratioOrdered By: Nando Wiggins on 01-23-2025 Erythrocyte distribution width (RBC) [Ratio] 15.7 % High 11.6-14.6 [facility] Erythrocyte distribution wid th standard deviationOrdered By: Nando Wiggins on 01-23-2025 Erythrocyte distribution width (RBC) [Ratio] 54.7 fl High 35.1-43.9 [facility] Glomerular filtration rate ( GFR) estimation/1.73 sq m using serum, plasma, or whole bOrdered By: Nando Wiggins on 01-23-2025 GFR/1.73 sq M.predicted among non-blacks MDRD (S/P/Bld) [Vol rate/Area] 12 mL/min/{1.73_m2} Low >60 [facility] Hematocrit Auto (Bld) [Volum e fraction]Ordered By: Nando Wiggins on 01-23-2025 Hematocrit (Bld) [Volume fraction] 31.3 % Low 40-54 [facility] Hemoglobin measurementOrdere d By: Nando Wiggins on 01-23-2025 Hemoglobin (Bld) [Mass/Vol] 10.0 g/dL Low 13.0-16.5 [facility] Immature granulocytes/100 WB C Auto (Bld)Ordered By: Nando Wiggins on 01-23-2025 Immature granulocytes/100 WBC (Bld) 0.500 % 0.0-0.9 [facility] MCV (mean corpuscular volume ) determinationOrdered By: Nando Wiggins on 01-23-2025 MCV (RBC) [Entitic vol] 95.7 fL High 80-94 [facility] Mean corpuscular hemoglobin (MCH) determinationOrdered By: Nando Wiggins on 01-23-2025 MCH (RBC) [Entitic mass] 30.6 pg 27.0-32.0 [facility] Monocyte percentageOrdered B y: Nando Wiggins on 01-23-2025 Monocytes/100 WBC (Bld) 9.3 % 0-10 [facility] Neutrophil percentageOrdered By: Nando Wiggins on 01-23-2025 Neutrophils/100 WBC (Bld) 67.6 % 47-70 [facility] Platelet countOrdered By: Kathie Wiggins on 01-23-2025 Platelets (Bld) [#/Vol] 173 10*3/uL 150-450 [facility] Potassium measurement (mass/ volume)Ordered By: Debsrinathwolf Wiggins on 01-23-2025 Potassium (Unsp spec) [Mass/Vol] 4.1 mmol/L 3.3-5.1 [facility] RBC Auto (Bld) [#/Vol]Ordere d By: Debsrinathwolf Wiggins on 01-23-2025 RBC (Bld) [#/Vol] 3.27 10*6/uL Low 4.6-6.2 [facility] Serum creatinine measurement (mass/volume)Ordered By: Nando Wiggins on 01-23-2025 Creatinine [Mass/Vol] 4.39 mg/dL High 0.70-1.20 [facility] Serum glucose measurement (m ass/volume)Ordered By: Nando Wiggins on 01-23-2025 Glucose [Mass/Vol] 201 mg/dL High 70-99 [facility] Serum or plasma calcium lilli urement (mass/volume)Ordered By: Nando Wiggins on 01-23-2025 Calcium [Mass/Vol] 8.7 mg/dL 7.6-11.0 [facility] Serum or plasma urea nitroge n measurement (mass/volume)Ordered By: Nando Wiggins on 01-23-2025 Urea nitrogen [Mass/Vol] 43 mg/dL High 4-19 [facility] Sodium levelOrdered By: Deb rosejeremie Rosalie on 01-23-2025 Sodium [Moles/Vol] 133 mmol/L 133-145 [facility] White blood cell (WBC) count Ordered By: Nando Wiggins on 01-23-2025 WBC (Bld) [#/Vol] 7.4 10*3/uL 4.4-11.0 [facility] Pacemaker Checkon 12-26-[address] [facility] Absolute lymphocyte countOrd ered By: Nando Wiggins on 12-24-2024 Lymphocytes Auto (Unsp spec) [#/Vol] 1.65 10*3/uL 0.83-4.51 [facility] Anion gap in Serum or Plasma Ordered By: Nando Wiggins on 12-24-2024 Anion gap [Moles/Vol] 16 mmol/L High 5-15 [facility] Automated lymphocyte count a s percentage of total leukocytesOrdered By: Nando Wiggins on 12-24-2024 Lymphocytes/100 WBC Auto (Unsp spec) 19.2 % 19-41 [facility] BUN/creatinine ratioOrdered By: Nando Wiggins on 12-24-2024 Urea nitrogen/Creatinine [Mass ratio] 9.7 mg/mg Low 10-20 [facility] Basophil percentageOrdered B y: Nando Wiggins on 12-24-2024 Basophils/100 WBC (Bld) 0.7 % 0-1 [facility] Carbon dioxide, total [Moles /volume] in Central venous bloodOrdered By: Nando Wiggins on 12-24-2024 CO2 [Moles/Vol] 25.2 mmol/L 21.0-32.0 [facility] Chloride assayOrdered By: Kathie Wiggins on 12-24-2024 Chloride [Moles/Vol] 93 mmol/L Low 98-108 [facility] Eosinophil percentageOrdered By: Nando Wiggins on 12-24-2024 Eosinophils/100 WBC (Bld) 2.8 % 0-5 [facility] Erythrocyte distribution wid th ratioOrdered By: Nando Wiggins on 12-24-2024 Erythrocyte distribution width (RBC) [Ratio] 15.2 % High 11.6-14.6 [facility] Erythrocyte distribution wid th standard deviationOrdered By: Nando Wiggins on 12-24-2024 Erythrocyte distribution width (RBC) [Ratio] 50.7 fl High 35.1-43.9 [facility] Glomerular filtration rate ( GFR) estimation/1.73 sq m using serum, plasma, or whole bOrdered By: Nando Wiggins on 12-24-2024 GFR/1.73 sq M.predicted among non-blacks MDRD (S/P/Bld) [Vol rate/Area] 10 mL/min/{1.73_m2} Low >60 [facility] Hematocrit Auto (Bld) [Volum e fraction]Ordered By: Nando Wiggins on 12-24-2024 Hematocrit (Bld) [Volume fraction] 31.5 % Low 40-54 [facility] Hemoglobin measurementOrdere d By: Nando Wiggins on 12-24-2024 Hemoglobin (Bld) [Mass/Vol] 10.0 g/dL Low 13.0-16.5 [facility] Immature granulocytes/100 WB C Auto (Bld)Ordered By: Nando Wiggins on 12-24-2024 Immature granulocytes/100 WBC (Bld) 0.600 % 0.0-0.9 [facility] MCV (mean corpuscular volume ) determinationOrdered By: Nando Wiggins on 12-24-2024 MCV (RBC) [Entitic vol] 91.3 fL 80-94 [facility] Mean corpuscular hemoglobin (MCH) determinationOrdered By: Nando Wiggins on 12-24-2024 MCH (RBC) [Entitic mass] 29.0 pg 27.0-32.0 [facility] Monocyte percentageOrdered B y: Nando Wiggins on 12-24-2024 Monocytes/100 WBC (Bld) 11.3 % High 0-10 [facility] Neutrophil percentageOrdered By: Nando Wiggins on 12-24-2024 Neutrophils/100 WBC (Bld) 65.4 % 47-70 [facility] Platelet countOrdered By: Kathie Wiggins on 12-24-2024 Platelets (Bld) [#/Vol] 180 10*3/uL 150-450 [facility] Potassium measurement (mass/ volume)Ordered By: Nando Wiggins on 12-24-2024 Potassium (Unsp spec) [Mass/Vol] 4.6 mmol/L 3.3-5.1 [facility] RBC Auto (Bld) [#/Vol]Ordere d By: Nando Wiggins on 12-24-2024 RBC (Bld) [#/Vol] 3.45 10*6/uL Low 4.6-6.2 [facility] Serum creatinine measurement (mass/volume)Ordered By: Nando Wiggins on 12-24-2024 Creatinine [Mass/Vol] 5.37 mg/dL High 0.70-1.20 [facility] Serum glucose measurement (m ass/volume)Ordered By: Nando Wiggins on 12-24-2024 Glucose [Mass/Vol] 131 mg/dL High 70-99 [facility] Serum or plasma calcium lilli urement (mass/volume)Ordered By: Nando Wiggins on 12-24-2024 Calcium [Mass/Vol] 9.1 mg/dL 7.6-11.0 [facility] Serum or plasma urea nitroge n measurement (mass/volume)Ordered By: Nando Wiggins on 12-24-2024 Urea nitrogen [Mass/Vol] 52 mg/dL High 4-19 [facility] Sodium levelOrdered By: Deb Wiggins on 12-24-2024 Sodium [Moles/Vol] 134 mmol/L 133-145 [facility] White blood cell (WBC) count Ordered By: Nando Wiggins on 12-24-2024 WBC (Bld) [#/Vol] 8.6 10*3/uL 4.4-11.0 [facility] Bilirubin directOrdered By: Nando Wiggins on 12-19-2024 Bilirubin.direct [Mass/Vol] 0.12 mg/dL 0.00-0.30 [facility] Bilirubin, totalOrdered By: Nando Wiggins on 12-19-2024 Bilirubin [Mass/Vol] 0.28 mg/dL 0.00-1.30 [facility] Hemoglobin A1c percentageOrd ered By: Nando Wiggins on 12-19-2024 HbA1c (Bld) [Mass fraction] 7.6 % High <5.7 [facility] No Panel InformationOrdered By: Nando Wiggins on 12-19-2024 16 U/L <38 [facility] Serum globulin measurementOr dered By: Nando Wiggins on 12-19-2024 Globulin (S) [Mass/Vol] 3.0 g/dL 2.2-4.2 [facility] Serum or plasma alanine hawkins otransferase (ALT) measurementOrdered By: Nando Wiggins on 12-19-2024 ALT [Catalytic activity/Vol] 30 U/L <47 [facility] Serum or plasma albumin lilli urement (mass/volume)Ordered By: Nando Wiggins on 12-19-2024 Albumin [Mass/Vol] 3.6 g/dL 3.4-4.8 [facility] Serum or plasma alkaline penelope sphatase measurementOrdered By: Nando Wiggins on 12-19-2024 ALP [Catalytic activity/Vol] 69 U/L 40-129 [facility] Total proteinOrdered By: Sinan Wiggins on 12-19-2024 Protein [Mass/Vol] 6.6 g/dL 5.9-8.4 [facility] Vitamin B12 ser/plasOrdered By: Nando Wiggins on 12-19-2024 Cobalamin (Vitamin B12) [Mass/Vol] 777 pg/mL 180-914 [facility] Bilirubin directOrdered By: Nando Wiggins on 12-12-2024 Bilirubin.direct [Mass/Vol] 0.13 mg/dL 0.00-0.30 [facility] Bilirubin, totalOrdered By: Nando Wiggins on 12-12-2024 Bilirubin [Mass/Vol] 0.27 mg/dL 0.00-1.30 [facility] Hemoglobin A1c percentageOrd ered By: Nando Wiggins on 12-12-2024 HbA1c (Bld) [Mass fraction] 7.3 % High <5.7 [facility] No Panel InformationOrdered By: Nando Wiggins on 12-12-2024 33 U/L <38 [facility] Serum globulin measurementOr dered By: Nando Wiggins on 12-12-2024 Globulin (S) [Mass/Vol] 3.2 g/dL 2.2-4.2 [facility] Serum or plasma alanine hawkins otransferase (ALT) measurementOrdered By: Nando Wiggins on 12-12-2024 ALT [Catalytic activity/Vol] 49 U/L High <47 [facility] Serum or plasma albumin lilli urement (mass/volume)Ordered By: Nando Wiggins on 12-12-2024 Albumin [Mass/Vol] 3.6 g/dL 3.4-4.8 [facility] Serum or plasma alkaline penelope sphatase measurementOrdered By: Nando Wiggins on 12-12-2024 ALP [Catalytic activity/Vol] 71 U/L 40-129 [facility] Total proteinOrdered By: Sinandesiree schmidt Rosalie on 12-12-2024 Protein [Mass/Vol] 6.8 g/dL 5.9-8.4 [facility] Vitamin B12 ser/plasOrdered By: Nando Wiggins on 12-12-2024 Cobalamin (Vitamin B12) [Mass/Vol] 719 pg/mL 180-914 [facility] CNPNon 12-11-2024 CNPN Normal [facility] Basic metabolic 2000 panelon 11-28-2024 Anion gap [Moles/Vol] 10 mmol/L Normal 8-15 [facility] Comment on above: Order Comment: Speci men Type: BLOOD SPECIMENOrdering Facility: [facility] Address: [address] [place] [address] Performed By: #### 2 4321-2, ####[facility] [id number] [place] [address] [place] Calcium [Mass/Vol] 8.8 mg/dL Normal 8.5-10.2 [facility] Comment on above: Order Comment: Speci men Type: BLOOD SPECIMENOrdering Facility: [facility] Address: [address] [id number] Performed By: #### 2 4321-2, ####[facility] [id number] [place] [id number] [place] Chloride [Moles/Vol] 96 mmol/L Low 98-107 [facility] Comment on above: Order Comment: Speci men Type: BLOOD SPECIMENOrdering Facility: [facility] Address: [address] [place] [address] Performed By: #### 2 4321-2, ####[facility] [id number] [address] [address] [place] CO2 [Moles/Vol] 26 mmol/L Normal 22-30 [facility] Comment on above: Order Comment: Speci men Type: BLOOD SPECIMENOrdering Facility: [facility] Address: [address] [place] [address] Performed By: #### 2 432-2, ####[facility] [id number] [address] [address] [place] Creatinine [Mass/Vol] 2.74 mg/dL High 0.73-1.22 [facility] Comment on above: Order Comment: Speci men Type: BLOOD SPECIMENOrdering Facility: [facility] Address: [address] [place] [address] Performed By: #### 2 43205-24, ####[facility] [id number] [address] [address] [place] Creatinine and Glomerular filtration rate.predicted panel (S/P/Bld) 22 mL/min/1.73m??? Low >=60 [facility] Comment on above: Order Comment: Speci men Type: BLOOD SPECIMENOrdering Facility: [facility] Address: [address] [place] [address] Result Comment: Tessa mated Glomerular Filtration Rate [...] reflect actual GFR. Performed By: #### 2 4321-2, ####[facility] [id number] [address] [address] [place] Glucose [Mass/Vol] 153 mg/dL High 74-99 [facility] Comment on above: Order Comment: Speci men Type: BLOOD SPECIMENOrdering Facility: [facility] Address: [address] [place] [address] Result Comment: The [place] [employer] (ADA) provides guidance for cutoff [...] Standards of Medical Care in Diabetes 2016, [place] [employer]. Diabetes Care. 2016.39(Suppl 1). Performed By: #### 2 4320-06, ####[facility] [id number] [place] [address] [place] Potassium [Moles/Vol] 4.4 mmol/L Normal 3.7-5.1 [facility] Comment on above: Order Comment: Ruddyi men Type: BLOOD SPECIMENOrdering Facility: [facility] Address: [address] [place] [address] Performed By: #### 2 4320-06, ####[facility] [id number] [place] [address] [place] Sodium [Moles/Vol] 132 mmol/L Low 136-144 [facility] Comment on above: Order Comment: Speci men Type: BLOOD SPECIMENOrdering Facility: [facility] Address: [address] [place] [address] Performed By: #### 2 4320-06, ####[facility] [id number] [place] [address] [place] Urea nitrogen [Mass/Vol] 22 mg/dL Normal 9-24 [facility] Comment on above: Order Comment: Speci men Type: BLOOD SPECIMENOrdering Facility: [facility] Address: [address] [place] [address] Performed By: #### 2 4321-2, 69506-1 ####[facility] [id number] [facility] [address] [place] [address] [place] CASE MANAGEMon 11-28-2024 CASE MANAGEM Normal [facility] CBC panel Auto (Bld)on 11-28 Erythrocyte distribution width (RBC) [Ratio] 15.9 % High 11.5-15.0 [facility] Comment on above: Order Comment: Speci men Type: BLOOD SPECIMENOrdering Facility: [facility] Address: [address] [place] [address] Performed By: #### 5 8410-2 ####[facility] [id number] [address], [facility] [place] Hematocrit (Bld) [Volume fraction] 33.2 % Low 39.0-51.0 [facility] Comment on above: Order Comment: Speci men Type: BLOOD SPECIMENOrdering Facility: [facility] Address: [address] [place] [address] Performed By: #### 5 8410-2 ####[facility] [id number] [facility] [address] [place] [address] [place] Hemoglobin (Bld) [Mass/Vol] 10.4 g/dL Low 13.0-17.0 [facility] Comment on above: Order Comment: Speci men Type: BLOOD SPECIMENOrdering Facility: [facility] Address: [address] [place] [address] Performed By: #### 5 8410-2 ####[facility] [id number] [facility] [address] [place] [address] [place] MCH (RBC) [Entitic mass] 28.3 pg Normal 26.0-34.0 [facility] Comment on above: Order Comment: Speci men Type: BLOOD SPECIMENOrdering Facility: [facility] Address: [address] [place] [address] Performed By: #### 5 8410-2 ####[facility] [id number] [place] [address] [place] MCHC (RBC) [Mass/Vol] 31.3 g/dL Normal 30.5-36.0 [facility] Comment on above: Order Comment: Speci men Type: BLOOD SPECIMENOrdering Facility: [facility] Address: [address] [place] [address] Performed By: #### 5 8410-2 ####[facility] [id number] [place] [address] [place] MCV (RBC) [Entitic vol] 90.2 fL Normal 80.0-100.0 [facility] Comment on above: Order Comment: Speci men Type: BLOOD SPECIMENOrdering Facility: [facility] Address: [address] [place] [address] Performed By: #### 5 8410-2 ####[facility] [id number] [place] [address] [place] Nucleated RBC (Bld) [#/Vol] 10*3/uL Normal <0.01 [facility] Comment on above: Order Comment: Speci men Type: BLOOD SPECIMENOrdering Facility: [facility] Address: [address] [place] [address] Performed By: #### 5 8410-2 ####[facility] [id number] [place] [address] [place] Platelet mean volume (Bld) [Entitic vol] 12.8 fL High 9.0-12.7 [facility] Comment on above: Order Comment: Speci men Type: BLOOD SPECIMENOrdering Facility: [facility] Address: [address] [place] [address] Performed By: #### 5 8410-2 ####[facility] [id number] [place] [address] [place] Platelets (Bld) [#/Vol] 126 10*3/uL Low 150-400 [facility] Comment on above: Order Comment: Speci men Type: BLOOD SPECIMENOrdering Facility: [facility] Address: [address] [place] [address] Performed By: #### 5 8410-2 ####[facility] [id number] [place] [address] [place] RBC (Bld) [#/Vol] 3.68 10*6/uL Low 4.20-6.00 [facility] Comment on above: Order Comment: Speci men Type: BLOOD SPECIMENOrdering Facility: [facility] Address: [address] [place] [address] Performed By: #### 5 8410-2 ####[facility] [id number] [place] [address] [place] WBC (Bld) [#/Vol] 7.99 10*3/uL Normal 3.70-11.00 [facility] Comment on above: Order Comment: Speci men Type: BLOOD SPECIMENOrdering Facility: [facility] Address: [address] [place] [address] Performed By: #### 5 8410-2 ####[facility] [id number] [place] [id number] [place] CNDSon 11-28-2024 CNDS Normal [facility] CONSULT PROGon 11-28-2024 CONSULT PROG Normal [facility] Magnesium SerPl-mCncon 11-28 Magnesium [Mass/Vol] 2.1 mg/dL Normal 1.7-2.3 [facility] Comment on above: Order Comment: Speci men Type: BLOOD SPECIMENOrdering Facility: [facility] Address: [address] [place] [address] Performed By: #### 2 4321-2, 27836-6 ####[facility] [id number] [place] [address] [place] THERAPY NTon 11-28-2024 THERAPY NT Normal [facility] XR CHEST 1V FRONTAL PORTon 0 11-28-2024 XR CHEST 1V FRONTAL PORT Normal [facility] ALLIED HEALTHon 11-27-2024 ALLIED HEALTH Normal [facility] ARTERIAL BLOOD GASESon 11-27 Base excess Calc (Bld) [Moles/Vol] 4 mmol/L High 0-2 [facility] Comment on above: Order Comment: Speci men Type: ARTERIAL BLOOD SPECIMENOrdering Facility: [facility] Address: [address] [place] [address] Performed By: #### A LLBG ####[facility] [id number] [place] [address] [place] Body temperature 97.88 [degF] Normal [facility] Comment on above: Order Comment: Speci men Type: ARTERIAL BLOOD SPECIMENOrdering Facility: [facility] Address: [address] [place] [address] Performed By: #### A LLBG ####[facility] [id number] [place] [address] [place] Calcium.ionized (Bld) [Mass/Vol] 1.10 mmol/L Normal 1.08-1.30 [facility] Comment on above: Order Comment: Speci men Type: ARTERIAL BLOOD SPECIMENOrdering Facility: [facility] Address: [address] [place] [address] Performed By: #### A LLBG ####[facility] [id number] [place] [address] [place] Calcium.ionized adjusted to pH 7.4 (BldA) [Moles/Vol] 1.10 mmol/L Normal 1.08-1.30 [facility] Comment on above: Order Comment: Speci men Type: ARTERIAL BLOOD SPECIMENOrdering Facility: [facility] Address: [address] [place] [address] Performed By: #### A LLBG ####[facility] [id number] [address] [address] [place] Carboxyhemoglobin (BldA) [Mass fraction] 1.2 % Normal 0.0-2.0 [facility] Comment on above: Order Comment: Speci men Type: ARTERIAL BLOOD SPECIMENOrdering Facility: [facility] Address: [address] [place] [address] Result Comment: Carb oxyhemoglobin Reference Range for Smokers: 2.0-8.0% Performed By: #### A LLBG ####[facility] [id number] [place] [id number] [place] CO2 (Bld) [Partial pressure] 48 mm Hg High 36-46 [facility] Comment on above: Order Comment: Speci men Type: ARTERIAL BLOOD SPECIMENOrdering Facility: [facility] Address: [address] [place] [address] Performed By: #### A LLBG ####[facility] [id number] [place] [address] [place] CO2 adjusted to patient's actual temperature (Bld) [Partial pressure] 47 mmHg High 36-46 [facility] Comment on above: Order Comment: Speci men Type: ARTERIAL BLOOD SPECIMENOrdering Facility: [facility] Address: [address] [place] [address] Performed By: #### A LLBG ####[facility] [id number] [place] [id number] [place] Glucose [Mass/Vol] 164 mg/dL High 60-105 [facility] Comment on above: Order Comment: Speci men Type: ARTERIAL BLOOD SPECIMENOrdering Facility: [facility] Address: [address] [place] [address] Performed By: #### A LLBG ####[facility] [id number] [place] [address] [place] HCO3 (Bld) [Moles/Vol] 29 mmol/L High 22-26 [facility] Comment on above: Order Comment: Speci men Type: ARTERIAL BLOOD SPECIMENOrdering Facility: [facility] Address: [address] [place] [address] Performed By: #### A LLBG ####[facility] [id number] [place] [address] [place] Hematocrit (Bld) [Volume fraction] 32.8 % Low 39.0-51.0 [facility] Comment on above: Order Comment: Speci men Type: ARTERIAL BLOOD SPECIMENOrdering Facility: [facility] Address: [address] [place] [address] Performed By: #### A LLBG ####[facility] [id number] [place] [address] [place] Hemoglobin (Bld) [Mass/Vol] 10.6 g/dL Low 13.0-17.0 [facility] Comment on above: Order Comment: Speci men Type: ARTERIAL BLOOD SPECIMENOrdering Facility: [facility] Address: [address] [place] [address] Performed By: #### A LLBG ####[facility] [id number] [place] [id number] [place] Lactate [Moles/Vol] 1.2 mmol/L Normal 0.5-2.2 [facility] Comment on above: Order Comment: Speci men Type: ARTERIAL BLOOD SPECIMENOrdering Facility: [facility] Address: [address] [place] [address] Performed By: #### A LLBG ####[facility] [id number] [place] [id number] [place] Methemoglobin (Bld) [Mass fraction] 1.5 % Normal 0.0-1.5 [facility] Comment on above: Order Comment: Speci men Type: ARTERIAL BLOOD SPECIMENOrdering Facility: [facility] Address: [address] [id number] Performed By: #### A LLBG ####[facility] [id number] [address] [address] [place] O2 THERAPY RA=Room Air Normal [facility] Rehabilitation Comment on above: Order Comment: Speci men Type: ARTERIAL BLOOD SPECIMENOrdering Facility: [facility] Address: [address] [id number] Performed By: #### A LLBG ####[facility] LABCLIA [id number] [address] [address] [place] Oxygen (Bld) [Partial pressure] 114 mm Hg High 85-95 [facility] Comment on above: Order Comment: Speci men Type: ARTERIAL BLOOD SPECIMENOrdering Facility: [facility] Address: [address] [id number] Performed By: #### A LLBG ####[facility] LABCLIA [id number] [address] [address] [place] Oxygen adjusted to patient's actual temperature (Bld) [Partial pressure] 111 mmHg High 85-95 [facility] Comment on above: Order Comment: Speci men Type: ARTERIAL BLOOD SPECIMENOrdering Facility: [facility] Address: [address] [id number] Performed By: #### A LLBG ####[facility] LABCLIA [id number] [address] [address] [place] Oxyhemoglobin (BldA) [Mass fraction] 95 % Normal 95-98 [facility] Comment on above: Order Comment: Speci men Type: ARTERIAL BLOOD SPECIMENOrdering Facility: [facility] Address: [address] [id number] Performed By: #### A LLBG ####[facility] LABCLIA [id number] [place] [address] [place] pH (Bld) 7.40 [pH] Normal 7.35-7.45 [facility] Comment on above: Order Comment: Speci men Type: ARTERIAL BLOOD SPECIMENOrdering Facility: [facility] Address: [address] [place] [address] Performed By: #### A LLBG ####[facility] LABCLIA [id number] [place] [address] [place] pH adjusted to patient's actual temperature (Bld) 7.41 Normal 7.35-7.45 [facility] Comment on above: Order Comment: Speci men Type: ARTERIAL BLOOD SPECIMENOrdering Facility: [facility] Address: [address] [place] [address] Performed By: #### A LLBG ####[facility] LABCLIA [id number] [place] [address] [place] PO2 / FIO2 RATIO 543 mmHg Normal >300 [facility] Comment on above: Order Comment: Speci men Type: ARTERIAL BLOOD SPECIMENOrdering Facility: [facility] Address: [address] [place] [address] Performed By: #### A LLBG ####[facility] LABCLIA [id number] [place] [address] [place] Potassium [Moles/Vol] 4.3 mmol/L Normal 3.5-5.0 [facility] Comment on above: Order Comment: Speci men Type: ARTERIAL BLOOD SPECIMENOrdering Facility: [facility] Address: [address] [place] [address] Performed By: #### A LLBG ####[facility] LABCLIA [id number] [place] [id number] [place] Sodium [Moles/Vol] 132 mmol/L Low 136-144 [facility] Comment on above: Order Comment: Speci men Type: ARTERIAL BLOOD SPECIMENOrdering Facility: [facility] Address: [address] [place] [address] Performed By: #### A LLBG ####[facility] LABCLIA [id number] [place] [address] [place] BUN p dialysis SerPl-mCncon 11-27-2024 Urea nitrogen post dialysis [Mass/Vol] 18 mg/dL Normal 9-24 [facility] Comment on above: Order Comment: Speci men Type: BLOOD SPECIMENOrdering Facility: [facility] Address: [address] [place] [address] Performed By: #### 1 1064-3 ####[facility] LABCLIA [id number] [place] [address] [place] [facility] U[facility] nitrogen pre dialysis [Mass/Vol] 50 mg/dL High 9-24 [facility] Comment on above: Order Comment: Speci men Type: BLOOD SPECIMENOrdering Facility: [facility] Address: [address] [place] [address] Performed By: #### 1 1065-0 ####[facility] LABCLIA [id number] [place] [address] [place] Basic Metabolic Profile (BMP )on 11-27-2024 BUN Normal 4-19 [facility] Comment on above: Result Comment: Canc elled via OM: MD Ordered Performed By: #### L 100.0100, L500.2500 ####[facility] [address] [place], [address] BUN/CRE Normal 10-20 [facility] Comment on above: Result Comment: Canc elled via OM: MD Ordered Performed By: #### L 100.0100, L500.2500 ####[facility] [address] [place], [address] Calcium Normal 7.6-11.0 [facility] Comment on above: Result Comment: Canc elled via OM: MD Ordered Performed By: #### L 100.0100, L500.2500 ####[facility] [address] [place], [address] CL Normal 98-108 [facility] Comment on above: Result Comment: Canc elled via OM: MD Ordered Performed By: #### L 100.0100, L500.2500 ####[facility] [address] [place], [address] CO2 Normal 21.0-32.0 [facility] Comment on above: Result Comment: Canc elled via OM: MD Ordered Performed By: #### L 100.0100, L500.2500 ####[facility] [address] [place], [address] CREAT,SERUM Normal 0.70-1.20 [facility] Comment on above: Result Comment: Canc elled via OM: MD Ordered Performed By: #### L 100.0100, L500.2500 ####[facility] [address] [place], [address] eGFR Normal >60 [facility] Comment on above: Result Comment: Canc elled via OM: MD Ordered Performed By: #### L 100.0100, L500.2500 ####[facility] [address] [place], [address] GAP Normal 5-15 [facility] Comment on above: Result Comment: Canc elled via OM: MD Ordered Performed By: #### L 100.0100, L500.2500 ####[facility] [address] [place], [address] GLU Normal 70-99 [facility] Comment on above: Result Comment: Canc elled via OM: MD Ordered Performed By: #### L 100.0100, L500.2500 ####[facility] [address] [place], [address] Potassium Normal 3.3-5.1 [facility] Comment on above: Result Comment: Canc elled via OM: MD Ordered Performed By: #### L 100.0100, L500.2500 ####[facility] [address] [place], [address] Basic Metabolic Profile (BMP) Normal 133-145 [facility] Comment on above: Result Comment: Canc elled via OM: MD Ordered Performed By: #### L 100.0100, L500.2500 ####[facility] [address] [place], [address] CASE MANAGEMon 11-27-2024 CASE MANAGEM Normal [facility] CBC W/Diff, Automatedon 07-0 Absolute Neut Normal 2.0-7.7 [facility] Comment on above: Result Comment: Canc elled via OM: MD Ordered Performed By: #### L 100.0100, L500.2500 ####[facility] [address] [place], [address] HCT Normal 40-54 [facility] Comment on above: Result Comment: Canc elled via OM: MD Ordered Performed By: #### L 100.0100, L500.2500 ####[facility] [address] [place], [address] HGB Normal 13.0-16.5 [facility] Comment on above: Result Comment: Canc elled via OM: MD Ordered Performed By: #### L 100.0100, L500.2500 ####[facility] [address] [place], [address] MCH Normal 27.0-32.0 [facility] Comment on above: Result Comment: Canc elled via OM: MD Ordered Performed By: #### L 100.0100, L500.2500 ####[facility] [address] [place], [address] MCHC Normal 32-36 [facility] Comment on above: Result Comment: Canc elled via OM: MD Ordered Performed By: #### L 100.0100, L500.2500 ####[facility] [address] [place], [address] MCV Normal 80-94 [facility] Comment on above: Result Comment: Canc elled via OM: MD Ordered Performed By: #### L 100.0100, L500.2500 ####[facility] [address] [place], [address] NEUT% Normal 47-70 [facility] Comment on above: Result Comment: Canc elled via OM: MD Ordered Performed By: #### L 100.0100, L500.2500 ####[facility] [address] [place], [address] PLT Normal 150-450 [facility] Comment on above: Result Comment: Canc elled via OM: MD Ordered Performed By: #### L 100.0100, L500.2500 ####[facility] [address] [place], [address] RBC Normal 4.6-6.2 [facility] Comment on above: Result Comment: Canc elled via OM: MD Ordered Performed By: #### L 100.0100, L500.2500 ####[facility] [address] [place], [address] RDW CV Normal 11.6-14.6 [facility] Comment on above: Result Comment: Canc elled via OM: MD Ordered Performed By: #### L 100.0100, L500.2500 ####[facility] [address] [place], [address] RDW SD Normal 35.1-43.9 [facility] Comment on above: Result Comment: Canc elled via OM: MD Ordered Performed By: #### L 100.0100, L500.2500 ####[facility] [address] [place], [address] WBC Normal 4.4-11.0 [facility] Comment on above: Result Comment: Canc elled via OM: MD Ordered Performed By: #### L 100.0100, L500.2500 ####[facility] [address] [place], [address] CBC panel Auto (Bld)on 11-27 Erythrocyte distribution width (RBC) [Ratio] 15.8 % High 11.5-15.0 [facility] Comment on above: Order Comment: Speci men Type: BLOOD SPECIMENOrdering Facility: [facility] Address: [address] [place] [address] Performed By: #### 5 8410-2 ####[facility] LABCLIA [id number] [place] [address] [place] Hematocrit (Bld) [Volume fraction] 31.4 % Low 39.0-51.0 [facility] Comment on above: Order Comment: Speci men Type: BLOOD SPECIMENOrdering Facility: [facility] Address: [address] [place] [address] Performed By: #### 5 8410-2 ####[facility] LABCLIA [id number] [place] [address] [place] Hemoglobin (Bld) [Mass/Vol] 10.1 g/dL Low 13.0-17.0 [facility] Comment on above: Order Comment: Speci men Type: BLOOD SPECIMENOrdering Facility: [facility] Address: [address] [place] [address] Performed By: #### 5 8410-2 ####[facility] LABCLIA [id number] [address] [address] [place] MCH (RBC) [Entitic mass] 28.4 pg Normal 26.0-34.0 [facility] Comment on above: Order Comment: Speci men Type: BLOOD SPECIMENOrdering Facility: [facility] Address: [address] [place] [address] Performed By: #### 5 8410-2 ####[facility] LABIA [id number] [place] [address] [place] MCHC (RBC) [Mass/Vol] 32.2 g/dL Normal 30.5-36.0 [facility] Comment on above: Order Comment: Speci men Type: BLOOD SPECIMENOrdering Facility: [facility] Address: [address] [place] [address] Performed By: #### 5 8410-2 ####[facility] LABIA [id number] [place] [address] [place] MCV (RBC) [Entitic vol] 88.2 fL Normal 80.0-100.0 [facility] Comment on above: Order Comment: Speci men Type: BLOOD SPECIMENOrdering Facility: [facility] Address: [address] [place] [address] Performed By: #### 5 8410-2 ####[facility] LABIA [id number] [place] [address] [place] Nucleated RBC (Bld) [#/Vol] 10*3/uL Normal <0.01 [facility] Comment on above: Order Comment: Speci men Type: BLOOD SPECIMENOrdering Facility: [facility] Address: [address] [place] [address] Performed By: #### 5 8410-2 ####[facility] LABIA [id number] [place] [address] [place] Platelet mean volume (Bld) [Entitic vol] 12.9 fL High 9.0-12.7 [facility] Comment on above: Order Comment: Speci men Type: BLOOD SPECIMENOrdering Facility: [facility] Address: [address] [place], [place] [address] Performed By: #### 5 8410-2 ####[facility] LABCLIA [id number] [place] [address] [place] Platelets (Bld) [#/Vol] 141 10*3/uL Low 150-400 [facility] Comment on above: Order Comment: Speci men Type: BLOOD SPECIMENOrdering Facility: [facility] Address: [address] [place] [address] Performed By: #### 5 8410-2 ####[facility] LABIA [id number] [place] [address] [place] RBC (Bld) [#/Vol] 3.56 10*6/uL Low 4.20-6.00 [facility] Comment on above: Order Comment: Speci men Type: BLOOD SPECIMENOrdering Facility: [facility] Address: [address] [place] [address] Performed By: #### 5 8410-2 ####[facility] LABIA [id number] [address] [id number] [place] WBC (Bld) [#/Vol] 8.24 10*3/uL Normal 3.70-11.00 [facility] Comment on above: Order Comment: Speci men Type: BLOOD SPECIMENOrdering Facility: [facility] Address: [address] [place] [address] Performed By: #### 5 8410-2 ####[facility] LABIA [id number] [address] [id number] [place] CONSULT PROGon 11-27-2024 CONSULT PROG Normal [facility] CONSULT PROG Normal [facility] Comprehensive metabolic 2000 panelon 11-27-2024 Albumin [Mass/Vol] 3.1 g/dL Low 3.9-4.9 [facility] Comment on above: Order Comment: Speci men Type: BLOOD SPECIMENOrdering Facility: [facility] Address: [address] [id number] Performed By: #### 2 4323-8, 64892-7, 2777-1 ####[facility] LABCLIA [id number] [place] [id number] [place] ALP [Catalytic activity/Vol] 62 U/L Normal 38-113 [facility] Comment on above: Order Comment: Speci men Type: BLOOD SPECIMENOrdering Facility: [facility] Address: [address] [place] [address] Performed By: #### 2 4323-8, 66203-9, 2776- ####[facility] LABIA [id number] [place] [address] [place] ALT [Catalytic activity/Vol] 30 U/L Normal 10-54 [facility] Comment on above: Order Comment: Speci men Type: BLOOD SPECIMENOrdering Facility: [facility] Address: [address] [place] [address] Performed By: #### 2 4323-8, 47461-4, 277- ####[facility] LABIA [id number] [place] [id number] [place] Anion gap [Moles/Vol] 13 mmol/L Normal 8-15 [facility] Comment on above: Order Comment: Speci men Type: BLOOD SPECIMENOrdering Facility: [facility] Address: [address] [place] [address] Performed By: #### 2 4323-8, 89758-8, 277- ####[facility] LABIA [id number] [place] [id number] [place] AST [Catalytic activity/Vol] 23 U/L Normal 14-40 [facility] Comment on above: Order Comment: Speci men Type: BLOOD SPECIMENOrdering Facility: [facility] Address: [address] [place] [address] Result Comment: Resu lts may be falsely increased due to interference from hemolysis. Suggest reorder as clinically indicated. Performed By: #### 2 4323-8, , 2776-05 ####[facility] LABCL[facility] [id number] [address] [address] [place] Bilirubin [Mass/Vol] 0.2 mg/dL Normal 0.2-1.3 [facility] Comment on above: Order Comment: Speci men Type: BLOOD SPECIMENOrdering Facility: [facility] Address: [address] [place] [address] Performed By: #### 2 4323-8, , 2776-05 ####[facility] LABCLIA [id number] [place] [id number] [place] Calcium [Mass/Vol] 8.6 mg/dL Normal 8.5-10.2 [facility] Comment on above: Order Comment: Speci men Type: BLOOD SPECIMENOrdering Facility: [facility] Address: [address] [place] [address] Performed By: #### 2 4323-8, , 2776-05 ####[facility] LABIA [id number] [place] [id number] [place] Chloride [Moles/Vol] 93 mmol/L Low 98-107 [facility] Comment on above: Order Comment: Speci men Type: BLOOD SPECIMENOrdering Facility: [facility] Address: [address] [place], [place] [address] Performed By: #### 2 4323-8, , 2776-05 ####[facility] LABIA [id number] [address] [address] [place] CO2 [Moles/Vol] 27 mmol/L Normal 22-30 [facility] Comment on above: Order Comment: Speci men Type: BLOOD SPECIMENOrdering Facility: [facility] Address: [address] [place], [place] [address] Performed By: #### 2 4323-8, , 2776-05 ####[facility]IA [id number] [address] [address] [place] Creatinine [Mass/Vol] 4.19 mg/dL High 0.73-1.22 [facility] Comment on above: Order Comment: Speclena aleman Type: BLOOD SPECIMENOrdering Facility: [facility] Address: [address] [place] [address] Performed By: #### 2 4323-8, , 2776-05 ####[facility]IA [id number] [place] [id number] [place] Creatinine and Glomerular filtration rate.predicted panel (S/P/Bld) 13 mL/min/1.73m??? Low >=60 [facility] Comment on above: Order Comment: Lesvia aleman Type: BLOOD SPECIMENOrdering Facility: [facility] Address: [address] [place] [address] Result Comment: Tessa mated Glomerular Filtration Rate [...] Performed By: #### 2 4323-8, , 2776-05 ####[facility]IA [id number] [address] [address] [place] Glucose [Mass/Vol] 174 mg/dL High 74-99 [facility] Comment on above: Order Comment: Ruddyi ash Type: BLOOD SPECIMENOrdering Facility: [facility] Address: [address] [place] [address] Result Comment: The [place] [employer] (ADA) provides guidance for cutoff [...] Standards of Medical Care in Diabetes 2016, [place] [employer]. Diabetes Care. 2016.39(Suppl 1). Performed By: #### 2 4323-8, , 2776-05 ####[facility]CL[facility] [id number] [place] [address] [place] Potassium [Moles/Vol] 4.2 mmol/L Normal 3.7-5.1 [facility] Comment on above: Order Comment: Speci men Type: BLOOD SPECIMENOrdering Facility: [facility] Address: [address] [place] [address] Performed By: #### 2 4323-8, , 2776-05 ####[facility]CL[facility] [id number] [place] [address] [place] Protein [Mass/Vol] 6.0 g/dL Low 6.3-8.0 [facility] Comment on above: Order Comment: Speci men Type: BLOOD SPECIMENOrdering Facility: [facility] Address: [address] [place] [address] Performed By: #### 2 4323-8, , 2776-05 ####[facility]CL[facility] [id number] [address] [address] [place] Sodium [Moles/Vol] 133 mmol/L Low 136-144 [facility] Comment on above: Order Comment: Speci men Type: BLOOD SPECIMENOrdering Facility: [facility] Address: [address] [place] [address] Performed By: #### 2 4323-8, , 2776-05 ####[facility]CL[facility] [id number] [address] [address] [place] Urea nitrogen [Mass/Vol] 43 mg/dL High 9-24 [facility] Comment on above: Order Comment: Speci men Type: BLOOD SPECIMENOrdering Facility: [facility] Address: [address] [place] [address] Performed By: #### 2 4323-8, 32178-5, 2776- ####[facility]CL[facility] [id number] [place] [id number] [place] Magnesium SerPl-mCncon 11-27 Magnesium [Mass/Vol] 2.2 mg/dL Normal 1.7-2.3 [facility] Comment on above: Order Comment: Speci men Type: BLOOD SPECIMENOrdering Facility: [facility] Address: [address] [place] [address] Performed By: #### 2 4323-8, , 2776-05 ####[facility]CL[facility] [id number] [place] [id number] [place] Phosphate SerPl-mCncon 11-27 Phosphate [Mass/Vol] 5.9 mg/dL High 2.7-4.8 [facility] Comment on above: Order Comment: Speci men Type: BLOOD SPECIMENOrdering Facility: [facility] Address: [address] [place] [address] Result Comment: Resu lt rechecked. Performed By: #### 2 4323-8, , 2776-05 ####[facility]CL[facility] [id number] [place] [id number] [place] TYPE + SCREENon 11-27-2024 ABO A Normal [facility] Comment on above: Order Comment: Speci men Type: BLOOD SPECIMENOrdering Facility: [facility] Address: [address] [place] [address] Performed By: #### T SCR ####[facility] BLOOD BANKCLIA [id number] [address] [address] [place] Rh Nom (Bld) Positive Normal [facility] Comment on above: Order Comment: Speci men Type: BLOOD SPECIMENOrdering Facility: [facility] Address: [address] [place] [address] Performed By: #### T SCR ####[facility] BLO[facility] BANKCLIA [id number] [place] [address] [place] TYPE AND SCREEN EXPIRATION 11/30/2024 23:59 Normal [facility] Comment on above: Order Comment: Speci men Type: BLOOD SPECIMENOrdering Facility: [facility] Address: [address] [place] [address] Performed By: #### T SCR ####[facility] BLOOD BANKCLIA [id number] [address] [place] Urea nitrogen post dialysis [Mass/Vol]on 11-27-2024 UREA REDUCTION RATIO WITH BUNPR 64 % Normal [facility] Comment on above: Order Comment: Speci men Type: BLOOD SPECIMENOrdering Facility: [facility] Address: [address] [place] [address] Performed By: #### 1 1064-3 ####[facility] LABCL[facility] [id number] [place] [id number] [place] XR CHEST 1V FRONTAL PORTon 0 11-27-2024 XR CHEST 1V FRONTAL PORT Normal [facility] XR CHEST 1V FRONTAL PORT Normal [facility] ANES POSTPROC EVALon 025 ANES POSTPROC EVAL Normal [facility] ANES PRE-OPon 11-26-2024 ANES PRE-OP Normal [facility] ARTERIAL BLOOD GASESon 11-26 Base excess Calc (Bld) [Moles/Vol] 4 mmol/L High 0-2 [facility] Comment on above: Order Comment: Speci men Type: ARTERIAL BLOOD SPECIMENOrdering Facility: [facility] Address: [address] [place], [place] [address] Performed By: #### A LLBG ####[facility] LABCL[facility] [id number] [place] [address] [place] Body temperature 98.6 [degF] Normal [facility] Comment on above: Order Comment: Speci men Type: ARTERIAL BLOOD SPECIMENOrdering Facility: [facility] Address: [address] [place] [address] Performed By: #### A LLBG ####[facility] LABCL[facility] [id number] [place] [address] [place] Calcium.ionized (Bld) [Mass/Vol] 1.13 mmol/L Normal 1.08-1.30 [facility] Comment on above: Order Comment: Speci men Type: ARTERIAL BLOOD SPECIMENOrdering Facility: [facility] Address: [address] [place] [address] Performed By: #### A LLBG ####[facility] [id number] [place] [address] [place] Calcium.ionized adjusted to pH 7.4 (BldA) [Moles/Vol] 1.13 mmol/L Normal 1.08-1.30 [facility] Comment on above: Order Comment: Speci men Type: ARTERIAL BLOOD SPECIMENOrdering Facility: [facility] Address: [address] [place] [address] Performed By: #### A LLBG ####[facility] [id number] [place] [address] [place] Carboxyhemoglobin (BldA) [Mass fraction] 0.0 % Normal 0.0-2.0 [facility] Comment on above: Order Comment: Speci men Type: ARTERIAL BLOOD SPECIMENOrdering Facility: [facility] Address: [address] [place] [address] Result Comment: Carb oxyhemoglobin Reference Range for Smokers: 2.0-8.0% Performed By: #### A LLBG ####[facility] [id number] [address] [place] [address] [place] CO2 (Bld) [Partial pressure] 48 mm Hg High 36-46 [facility] Comment on above: Order Comment: Speci men Type: ARTERIAL BLOOD SPECIMENOrdering Facility: [facility] Address: [address] [place] [address] Performed By: #### A LLBG ####[facility] [id number] [place] [address] [place] Glucose [Mass/Vol] 146 mg/dL High 60-105 [facility] Comment on above: Order Comment: Speci men Type: ARTERIAL BLOOD SPECIMENOrdering Facility: [facility] Address: [address] [place] [address] Performed By: #### A LLBG ####[facility] [id number] [place] [id number] [place] HCO3 (Bld) [Moles/Vol] 29 mmol/L High 22-[address] [facility] Comment on above: Order Comment: Speci men Type: ARTERIAL BLOOD SPECIMENOrdering Facility: [facility] Address: [address] [place] [address] Performed By: #### A LLBG ####[facility] [id number] [place] [id number] [place] Hematocrit (Bld) [Volume fraction] 32.1 % Low 39.0-51.0 [facility] Comment on above: Order Comment: Speci men Type: ARTERIAL BLOOD SPECIMENOrdering Facility: [facility] Address: [address] [place] [address] Performed By: #### A LLBG ####[facility] [id number] [facility] [place] [id number] [place] Hemoglobin (Bld) [Mass/Vol] 10.4 g/dL Low 13.0-17.0 [facility] Comment on above: Order Comment: Speci men Type: ARTERIAL BLOOD SPECIMENOrdering Facility: [facility] Address: [address] [place] [address] Performed By: #### A LLBG ####[facility] [id number] [address] [address] [place] Lactate [Moles/Vol] 0.7 mmol/L Normal 0.5-2.2 [facility] Comment on above: Order Comment: Speci men Type: ARTERIAL BLOOD SPECIMENOrdering Facility: [facility] Address: [address] [place] [address] Performed By: #### A LLBG ####[facility] [id number] [place] [address] [place] LITERS 2 Liters/min Normal [facility] Comment on above: Order Comment: Speci men Type: ARTERIAL BLOOD SPECIMENOrdering Facility: [facility] Address: [address] [place] [address] Performed By: #### A LLBG ####[facility] [id number] [place] [address] [place] Methemoglobin (Bld) [Mass fraction] 0.5 % Normal 0.0-1.5 [facility] Comment on above: Order Comment: Speci men Type: ARTERIAL BLOOD SPECIMENOrdering Facility: [facility] Address: [address] [place] [address] Performed By: #### A LLBG ####[facility] [id number] [place] [id number] [place] O2 THERAPY NC = Nasal Cannula Normal [facility] Comment on above: Order Comment: Speci men Type: ARTERIAL BLOOD SPECIMENOrdering Facility: [facility] Address: [address] [place], [place] [address] Performed By: #### A LLBG ####[facility] [id number] [address] [place] [address] [place] Oxygen (Bld) [Partial pressure] 158 mm Hg High 85-95 [facility] Comment on above: Order Comment: Speci men Type: ARTERIAL BLOOD SPECIMENOrdering Facility: [facility] Address: [address] [place] [address] Performed By: #### A LLBG ####[facility] [id number] [place] [address] [place] Oxyhemoglobin (BldA) [Mass fraction] 97 % Normal 95-98 [facility] Comment on above: Order Comment: Speci men Type: ARTERIAL BLOOD SPECIMENOrdering Facility: [facility] Address: [address] [place] [address] Performed By: #### A LLBG ####[facility] [id number] [place] [id number] [place] pH (Bld) 7.40 [pH] Normal 7.35-7.45 [facility] Comment on above: Order Comment: Speci men Type: ARTERIAL BLOOD SPECIMENOrdering Facility: [facility] Address: [address] [place] [address] Performed By: #### A LLBG ####[facility] [id number] [place] [address] [place] Potassium [Moles/Vol] 3.8 mmol/L Normal 3.5-5.0 [facility] Comment on above: Order Comment: Speci men Type: ARTERIAL BLOOD SPECIMENOrdering Facility: [facility] Address: [address] [place] [address] Performed By: #### A LLBG ####[facility] [id number] [place] [id number] [place] Sodium [Moles/Vol] 134 mmol/L Low 136-144 [facility] Comment on above: Order Comment: Speci men Type: ARTERIAL BLOOD SPECIMENOrdering Facility: [facility] Address: [address] [place], [place] [address] Performed By: #### A LLBG ####[facility] [id number] [place] [address] [place] Base excess Calc (Bld) [Moles/Vol] 4 mmol/L High 0-2 [facility] Comment on above: Order Comment: Speci men Type: ARTERIAL BLOOD SPECIMENOrdering Facility: [facility] Address: [address] [place] [address] Performed By: #### A LLBG ####[facility] [id number] [place] [address] [place] Body temperature 97.16 [degF] Normal [facility] Comment on above: Order Comment: Speci men Type: ARTERIAL BLOOD SPECIMENOrdering Facility: [facility] Address: [address] [place] [address] Performed By: #### A LLBG ####[facility] [id number] [place] [address] [place] Calcium.ionized (Bld) [Mass/Vol] 1.11 mmol/L Normal 1.08-1.30 [facility] Comment on above: Order Comment: Speci men Type: ARTERIAL BLOOD SPECIMENOrdering Facility: [facility] Address: [address] [place] [address] Performed By: #### A LLBG ####[facility] [id number] [place] [address] [place] Calcium.ionized adjusted to pH 7.4 (BldA) [Moles/Vol] 1.10 mmol/L Normal 1.08-1.30 [facility] Comment on above: Order Comment: Speci men Type: ARTERIAL BLOOD SPECIMENOrdering Facility: [facility] Address: [address] [place] [address] Performed By: #### A LLBG ####[facility] [id number] [place] [id number] [place] Carboxyhemoglobin (BldA) [Mass fraction] 0.9 % Normal 0.0-2.0 [facility] Comment on above: Order Comment: Speci men Type: ARTERIAL BLOOD SPECIMENOrdering Facility: [facility] Address: [address] [place] [address] Result Comment: Carb oxyhemoglobin Reference Range for Smokers: 2.0-8.0% Performed By: #### A LLBG ####[facility] [id number] [place] [address] [place] CO2 (Bld) [Partial pressure] 48 mm Hg High 36-46 [facility] Comment on above: Order Comment: Speci men Type: ARTERIAL BLOOD SPECIMENOrdering Facility: [facility] Address: [address] [place] [address] Performed By: #### A LLBG ####[facility] [id number] [address] [place] CO2 adjusted to patient's actual temperature (Bld) [Partial pressure] 46 mmHg Normal 36-46 [facility] Comment on above: Order Comment: Speci men Type: ARTERIAL BLOOD SPECIMENOrdering Facility: [facility] Address: [address] [place] [address] Performed By: #### A LLBG ####[facility] [id number] [place] [address] [place] Glucose [Mass/Vol] 105 mg/dL Normal 60-105 [facility] Comment on above: Order Comment: Speci men Type: ARTERIAL BLOOD SPECIMENOrdering Facility: [facility] Address: [address] [place] [address] Performed By: #### A LLBG ####[facility] [id number] [place] [id number] [place] HCO3 (Bld) [Moles/Vol] 29 mmol/L High 22-[address] [facility] Comment on above: Order Comment: Speci men Type: ARTERIAL BLOOD SPECIMENOrdering Facility: [facility] Address: [address] [place] [address] Performed By: #### A LLBG ####[facility] [id number] [place] [address] [place] Hematocrit (Bld) [Volume fraction] 33.0 % Low 39.0-51.0 [facility] Comment on above: Order Comment: Speci men Type: ARTERIAL BLOOD SPECIMENOrdering Facility: [facility] Address: [address] [place] [address] Performed By: #### A LLBG ####[facility] [id number] [place] [address] [place] Hemoglobin (Bld) [Mass/Vol] 10.7 g/dL Low 13.0-17.0 [facility] Comment on above: Order Comment: Speci men Type: ARTERIAL BLOOD SPECIMENOrdering Facility: [facility] Address: [address] [place] [address] Performed By: #### A LLBG ####[facility] [id number] [place] [address] [place] Lactate [Moles/Vol] 0.7 mmol/L Normal 0.5-2.2 [facility] Comment on above: Order Comment: Speci men Type: ARTERIAL BLOOD SPECIMENOrdering Facility: [facility] Address: [address] [place] [address] Performed By: #### A LLBG ####[facility] [id number] [place] [address] [place] LITERS 4 Liters/min Normal [facility] Comment on above: Order Comment: Speci men Type: ARTERIAL BLOOD SPECIMENOrdering Facility: [facility] Address: [address] [place] [address] Performed By: #### A LLBG ####[facility] [id number] [address] [place] [address] [place] Methemoglobin (Bld) [Mass fraction] 1.0 % Normal 0.0-1.5 [facility] Comment on above: Order Comment: Speci men Type: ARTERIAL BLOOD SPECIMENOrdering Facility: [facility] Address: [address] [place] [id number] Performed By: #### A LLBG ####[facility] [id number] [address] [address] [place] O2 THERAPY NC = Nasal Cannula Normal [facility] Comment on above: Order Comment: Speci men Type: ARTERIAL BLOOD SPECIMENOrdering Facility: [facility] Address: [address] [place] [id number] Performed By: #### A LLBG ####[facility] [id number] [address] [address] [place] Oxygen (Bld) [Partial pressure] 154 mm Hg High 85-95 [facility] Comment on above: Order Comment: Speci men Type: ARTERIAL BLOOD SPECIMENOrdering Facility: [facility] Address: [address] [place] [id number] Performed By: #### A LLBG ####[facility] [id number] [address] [address] [place] Oxygen adjusted to patient's actual temperature (Bld) [Partial pressure] 150 mmHg High 85-95 [facility] Comment on above: Order Comment: Speci men Type: ARTERIAL BLOOD SPECIMENOrdering Facility: [facility] Address: [address] [place] [address] Performed By: #### A LLBG ####[facility] [id number] [address] [address] [place] Oxyhemoglobin (BldA) [Mass fraction] 97 % Normal 95-98 [facility] Comment on above: Order Comment: Speci men Type: ARTERIAL BLOOD SPECIMENOrdering Facility: [facility] Address: [address] [place] [address] Performed By: #### A LLBG ####[facility] [id number] [place] [address] [place] pH (Bld) 7.40 [pH] Normal 7.35-7.45 [facility] Comment on above: Order Comment: Speci men Type: ARTERIAL BLOOD SPECIMENOrdering Facility: [facility] Address: [address] [place] [address] Performed By: #### A LLBG ####[facility] [id number] [place] [address] [place] pH adjusted to patient's actual temperature (Bld) 7.41 Normal 7.35-7.45 [facility] Comment on above: Order Comment: Speci men Type: ARTERIAL BLOOD SPECIMENOrdering Facility: [facility] Address: [address] [place] [address] Performed By: #### A LLBG ####[facility] [id number] [place] [id number] [place] Potassium [Moles/Vol] 3.7 mmol/L Normal 3.5-5.0 [facility] Comment on above: Order Comment: Speci men Type: ARTERIAL BLOOD SPECIMENOrdering Facility: [facility] Address: [address] [place] [address] Performed By: #### A LLBG ####[facility] [id number] [place] [id number] [place] Sodium [Moles/Vol] 134 mmol/L Low 136-144 [facility] Comment on above: Order Comment: Speci men Type: ARTERIAL BLOOD SPECIMENOrdering Facility: [facility] Address: [address] [place] [address] Performed By: #### A LLBG ####[facility] [id number] [place] [id number] [place] Base deficit (BldA) [Moles/Vol] -1 mmol/L Normal -2-0 [facility] Comment on above: Order Comment: Speci men Type: ARTERIAL BLOOD SPECIMENOrdering Facility: [facility] Address: [address] [place] [address] Performed By: #### A LLBG ####[facility] [id number] [place] [address] [place] Body temperature 97.7 [degF] Normal [facility] Comment on above: Order Comment: Speci men Type: ARTERIAL BLOOD SPECIMENOrdering Facility: [facility] Address: [address] [place] [address] Performed By: #### A LLBG ####[facility] [id number] [place] [address] [place] Calcium.ionized (Bld) [Mass/Vol] 1.10 mmol/L Normal 1.08-1.30 [facility] Comment on above: Order Comment: Speci men Type: ARTERIAL BLOOD SPECIMENOrdering Facility: [facility] Address: [address] [place] [address] Performed By: #### A LLBG ####[facility] [id number] [place] [address] [place] Calcium.ionized adjusted to pH 7.4 (BldA) [Moles/Vol] 1.09 mmol/L Normal 1.08-1.30 [facility] Comment on above: Order Comment: Speci men Type: ARTERIAL BLOOD SPECIMENOrdering Facility: [facility] Address: [address] [place] [address] Performed By: #### A LLBG ####[facility] [id number] [place] [address] [place] Carboxyhemoglobin (BldA) [Mass fraction] 1.0 % Normal 0.0-2.0 [facility] Comment on above: Order Comment: Speci men Type: ARTERIAL BLOOD SPECIMENOrdering Facility: [facility] Address: [address] [place] [address] Result Comment: Carb oxyhemoglobin Reference Range for Smokers: 2.0-8.0% Performed By: #### A LLBG ####[facility] [id number] [address] [address] [place] CO2 (Bld) [Partial pressure] 42 mm Hg Normal 36-46 [facility] Comment on above: Order Comment: Speci men Type: ARTERIAL BLOOD SPECIMENOrdering Facility: [facility] Address: [address] [place] [address] Performed By: #### A LLBG ####[facility] [id number] [place] [address] [place] CO2 adjusted to patient's actual temperature (Bld) [Partial pressure] 41 mmHg Normal 36-46 [facility] Comment on above: Order Comment: Speci men Type: ARTERIAL BLOOD SPECIMENOrdering Facility: [facility] Address: [address] [place] [address] Performed By: #### A LLBG ####[facility] [id number] [place] [address] [place] Glucose [Mass/Vol] 81 mg/dL Normal 60-105 [facility] Comment on above: Order Comment: Speci men Type: ARTERIAL BLOOD SPECIMENOrdering Facility: [facility] Address: [address] [place] [address] Performed By: #### A LLBG ####[facility] [id number] [place] [id number] [place] HCO3 (Bld) [Moles/Vol] 24 mmol/L Normal 22-[address] [facility] Comment on above: Order Comment: Speci men Type: ARTERIAL BLOOD SPECIMENOrdering Facility: [facility] Address: [address] [place] [address] Performed By: #### A LLBG ####[facility] [id number] [place] [address] [place] Hematocrit (Bld) [Volume fraction] 32.8 % Low 39.0-51.0 [facility] Comment on above: Order Comment: Speci men Type: ARTERIAL BLOOD SPECIMENOrdering Facility: [facility] Address: [address] [place] [address] Performed By: #### A LLBG ####[facility] [id number] [place] [address] [place] Hemoglobin (Bld) [Mass/Vol] 10.6 g/dL Low 13.0-17.0 [facility] Comment on above: Order Comment: Speci men Type: ARTERIAL BLOOD SPECIMENOrdering Facility: [facility] Address: [address] [place] [address] Performed By: #### A LLBG ####[facility] [id number] [place] [address] [place] Lactate [Moles/Vol] 0.5 mmol/L Normal 0.5-2.2 [facility] Comment on above: Order Comment: Speci men Type: ARTERIAL BLOOD SPECIMENOrdering Facility: [facility] Address: [address] [place] [address] Performed By: #### A LLBG ####[facility] [id number] [place] [address] [place] LITERS 2 Liters/min Normal [facility] Comment on above: Order Comment: Speci men Type: ARTERIAL BLOOD SPECIMENOrdering Facility: [facility] Address: [address] [place] [address] Performed By: #### A LLBG ####[facility] [id number] [place] [address] [place] Methemoglobin (Bld) [Mass fraction] 0.9 % Normal 0.0-1.5 [facility] Comment on above: Order Comment: Speci men Type: ARTERIAL BLOOD SPECIMENOrdering Facility: [facility] Address: [address] [place] [address] Performed By: #### A LLBG ####[facility] [id number] [address] [place] [address] [place] O2 THERAPY NC = Nasal Cannula Normal [facility] Comment on above: Order Comment: Speci men Type: ARTERIAL BLOOD SPECIMENOrdering Facility: [facility] Address: [address] [place] [id number] Performed By: #### A LLBG ####[facility] [id number] [address] [address] [place] Oxygen (Bld) [Partial pressure] 152 mm Hg High 85-95 [facility] Comment on above: Order Comment: Speci men Type: ARTERIAL BLOOD SPECIMENOrdering Facility: [facility] Address: [address] [place], [place] [address] Performed By: #### A LLBG ####[facility] [id number] [address] [address] [place] Oxygen adjusted to patient's actual temperature (Bld) [Partial pressure] 149 mmHg High 85-95 [facility] Comment on above: Order Comment: Speci men Type: ARTERIAL BLOOD SPECIMENOrdering Facility: [facility] Address: [address] [place] [id number] Performed By: #### A LLBG ####[facility] [id number] [address] [place] [address] [place] Oxyhemoglobin (BldA) [Mass fraction] 97 % Normal 95-98 [facility] Comment on above: Order Comment: Speci men Type: ARTERIAL BLOOD SPECIMENOrdering Facility: [facility] Address: [address] [place], [place] [address] Performed By: #### A LLBG ####[facility] [id number] [place] [address] [place] pH (Bld) 7.37 [pH] Normal 7.35-7.45 [facility] Comment on above: Order Comment: Speci men Type: ARTERIAL BLOOD SPECIMENOrdering Facility: [facility] Address: [address] [place] [address] Performed By: #### A LLBG ####[facility] [id number] [place] [address] [place] pH adjusted to patient's actual temperature (Bld) 7.38 Normal 7.35-7.45 [facility] Comment on above: Order Comment: Speci men Type: ARTERIAL BLOOD SPECIMENOrdering Facility: [facility] Address: [address] [place] [address] Performed By: #### A LLBG ####[facility] [id number] [place] [address] [place] Potassium [Moles/Vol] 5.2 mmol/L High 3.5-5.0 [facility] Comment on above: Order Comment: Speci men Type: ARTERIAL BLOOD SPECIMENOrdering Facility: [facility] Address: [address] [place] [address] Performed By: #### A LLBG ####[facility] [id number] [place] [address] [place] Sodium [Moles/Vol] 128 mmol/L Low 136-144 [facility] Comment on above: Order Comment: Speci men Type: ARTERIAL BLOOD SPECIMENOrdering Facility: [facility] Address: [address] [place], [place] [id number] Performed By: #### A LLBG ####[facility] [id number] [place] [address] [place] Base deficit (BldA) [Moles/Vol] mmol/L Normal -2-0 [facility] Comment on above: Order Comment: Speci men Type: ARTERIAL BLOOD SPECIMENOrdering Facility: [facility] Address: [address] [place] [address] Performed By: #### A LLBG ####[facility] [id number] [place] [address] [place] Body temperature 97.52 [degF] Normal [facility] Comment on above: Order Comment: Speci men Type: ARTERIAL BLOOD SPECIMENOrdering Facility: [facility] Address: [address] [place] [address] Performed By: #### A LLBG ####[facility] [id number] [place] [address] [place] Calcium.ionized (Bld) [Mass/Vol] 1.07 mmol/L Low 1.08-1.30 [facility] Comment on above: Order Comment: Speci men Type: ARTERIAL BLOOD SPECIMENOrdering Facility: [facility] Address: [address] [place] [address] Performed By: #### A LLBG ####[facility] [id number] [place] [address] [place] Calcium.ionized adjusted to pH 7.4 (BldA) [Moles/Vol] 1.06 mmol/L Low 1.08-1.30 [facility] Comment on above: Order Comment: Speci men Type: ARTERIAL BLOOD SPECIMENOrdering Facility: [facility] Address: [address] [place] [address] Performed By: #### A LLBG ####[facility] [id number] [place] [address] [place] Carboxyhemoglobin (BldA) [Mass fraction] 0.4 % Normal 0.0-2.0 [facility] Comment on above: Order Comment: Speci men Type: ARTERIAL BLOOD SPECIMENOrdering Facility: [facility] Address: [address] [place] [address] Result Comment: Carb oxyhemoglobin Reference Range for Smokers: 2.0-8.0% Performed By: #### A LLBG ####[facility]CLIA [id number] [facility] [address], [place] [address] [place] CO2 (Bld) [Partial pressure] 44 mm Hg Normal 36-46 [facility] Comment on above: Order Comment: Speci men Type: ARTERIAL BLOOD SPECIMENOrdering Facility: [facility] Address: [address] [place] [address] Performed By: #### A LLBG ####[facility] LABCLIA [id number] [facility] [address], [place] [address] [place] CO2 adjusted to patient's actual temperature (Bld) [Partial pressure] 42 mmHg Normal 36-46 [facility] Comment on above: Order Comment: Speci men Type: ARTERIAL BLOOD SPECIMENOrdering Facility: [facility] Address: [address] [place] [address] Performed By: #### A LLBG ####[facility] LABCLIA [id number] [place] [address] [place] Glucose [Mass/Vol] 142 mg/dL High 60-105 [facility] Comment on above: Order Comment: Speci men Type: ARTERIAL BLOOD SPECIMENOrdering Facility: [facility] Address: [address] [place] [address] Performed By: #### A LLBG ####[facility] LABCLIA [id number] [place] [id number] [place] HCO3 (Bld) [Moles/Vol] 25 mmol/L Normal 22-[address] [facility] Comment on above: Order Comment: Speci men Type: ARTERIAL BLOOD SPECIMENOrdering Facility: [facility] Address: [address] [place] [address] Performed By: #### A LLBG ####[facility] LABCLIA [id number] [place] [id number] [place] Hematocrit (Bld) [Volume fraction] 33.9 % Low 39.0-51.0 [facility] Comment on above: Order Comment: Speci men Type: ARTERIAL BLOOD SPECIMENOrdering Facility: [facility] Address: [address] [place] [address] Performed By: #### A LLBG ####[facility] LABIA [id number] [address] [address] [place] Hemoglobin (Bld) [Mass/Vol] 11.0 g/dL Low 13.0-17.0 [facility] Comment on above: Order Comment: Speci men Type: ARTERIAL BLOOD SPECIMENOrdering Facility: [facility] Address: [address] [place] [address] Performed By: #### A LLBG ####[facility] LABIA [id number] [place] [address] [place] Lactate [Moles/Vol] 0.9 mmol/L Normal 0.5-2.2 [facility] Comment on above: Order Comment: Speci men Type: ARTERIAL BLOOD SPECIMENOrdering Facility: [facility] Address: [address] [place] [address] Performed By: #### A LLBG ####[facility] LABIA [id number] [place] [address] [place] LITERS 1 Liters/min Normal [facility] Comment on above: Order Comment: Speci men Type: ARTERIAL BLOOD SPECIMENOrdering Facility: [facility] Address: [address] [place] [address] Performed By: #### A LLBG ####[facility] LABIA [id number] [place] [id number] [place] Methemoglobin (Bld) [Mass fraction] 0.5 % Normal 0.0-1.5 [facility] Comment on above: Order Comment: Speci men Type: ARTERIAL BLOOD SPECIMENOrdering Facility: [facility] Address: [address] [place] [address] Performed By: #### A LLBG ####[facility] LABCLIA [id number] [address] [place] [address] [place] O2 THERAPY NC = Nasal Cannula Normal [facility] Comment on above: Order Comment: Speci men Type: ARTERIAL BLOOD SPECIMENOrdering Facility: [facility] Address: [address] [place], [place] [address] Performed By: #### A LLBG ####[facility] LABCLIA [id number] [address] [place] [address] [place] Oxygen (Bld) [Partial pressure] 131 mm Hg High 85-95 [facility] Comment on above: Order Comment: Speci men Type: ARTERIAL BLOOD SPECIMENOrdering Facility: [facility] Address: [address] [place] [address] Performed By: #### A LLBG ####[facility] LABCLIA [id number] [address] [address] [place] Oxygen adjusted to patient's actual temperature (Bld) [Partial pressure] 127 mmHg High 85-95 [facility] Comment on above: Order Comment: Speci men Type: ARTERIAL BLOOD SPECIMENOrdering Facility: [facility] Address: [address] [place], [place] [address] Performed By: #### A LLBG ####[facility] LABCLIA [id number] [address] [address] [place] Oxyhemoglobin (BldA) [Mass fraction] 96 % Normal 95-98 [facility] Comment on above: Order Comment: Speci men Type: ARTERIAL BLOOD SPECIMENOrdering Facility: [facility] Address: [address] [place], [place] [address] Performed By: #### A LLBG ####[facility] LABCLIA [id number] [address] [address] [place] pH (Bld) 7.37 [pH] Normal 7.35-7.45 [facility] Comment on above: Order Comment: Speci men Type: ARTERIAL BLOOD SPECIMENOrdering Facility: [facility] Address: [address] [place] [address] Performed By: #### A LLBG ####[facility] LABIA [id number] [place] [address] [place] pH adjusted to patient's actual temperature (Bld) 7.38 Normal 7.35-7.45 [facility] Comment on above: Order Comment: Speci men Type: ARTERIAL BLOOD SPECIMENOrdering Facility: [facility] Address: [address] [place] [address] Performed By: #### A LLBG ####[facility] LABIA [id number] [place] [address] [place] Potassium [Moles/Vol] 5.4 mmol/L High 3.5-5.0 [facility] Comment on above: Order Comment: Speci men Type: ARTERIAL BLOOD SPECIMENOrdering Facility: [facility] Address: [address] [place] [address] Performed By: #### A LLBG ####[facility] [id number] [place] [address] [place] ARTERIAL BLOOD GASES WITH IO NIZED MAGNESIUMon 11-26-2024 Base excess Calc (Bld) [Moles/Vol] 6 mmol/L High 0-2 [facility] Comment on above: Order Comment: Speci men Type: ARTERIAL BLOOD SPECIMENOrdering Facility: [facility] Address: [address] [place] [address] Performed By: #### A LLMG ####[facility] [id number] [place] [address] [place] Calcium.ionized (Bld) [Mass/Vol] 1.09 mmol/L Normal 1.08-1.30 [facility] Comment on above: Order Comment: Speci men Type: ARTERIAL BLOOD SPECIMENOrdering Facility: [facility] Address: [address] [place] [address] Performed By: #### A LLMG ####[facility] LABCLIA [id number] [place] [address] [place] Calcium.ionized adjusted to pH 7.4 (BldA) [Moles/Vol] 1.12 mmol/L Normal 1.08-1.30 [facility] Comment on above: Order Comment: Speci men Type: ARTERIAL BLOOD SPECIMENOrdering Facility: [facility] Address: [address] [place] [address] Performed By: #### A LLMG ####[facility] LABIA [id number] [place] [address] [place] Carboxyhemoglobin (BldA) [Mass fraction] 0.0 % Normal 0.0-2.0 [facility] Comment on above: Order Comment: Speci men Type: ARTERIAL BLOOD SPECIMENOrdering Facility: [facility] Address: [address] [place] [address] Result Comment: Carb oxyhemoglobin Reference Range for Smokers: 2.0-8.0% Performed By: #### A LLMG ####[facility] LABCLIA [id number] [place] [address] [place] CO2 (Bld) [Partial pressure] 43 mm Hg Normal 36-46 [facility] Comment on above: Order Comment: Speci men Type: ARTERIAL BLOOD SPECIMENOrdering Facility: [facility] Address: [address] [place] [address] Performed By: #### A LLMG ####[facility] LABCLIA [id number] [place] [address] [place] CO2 adjusted to patient's actual temperature (Bld) [Partial pressure] 43 mmHg Normal 36-46 [facility] Comment on above: Order Comment: Speci men Type: ARTERIAL BLOOD SPECIMENOrdering Facility: [facility] Address: [address] [place] [address] Performed By: #### A LLMG ####[facility] LABCLIA [id number] [place] [id number] [place] Glucose [Mass/Vol] 83 mg/dL Normal 60-105 [facility] Comment on above: Order Comment: Speci men Type: ARTERIAL BLOOD SPECIMENOrdering Facility: [facility] Address: [address] [place] [address] Performed By: #### A LLMG ####[facility] LABCLIA [id number] [place] [address] [place] HCO3 (Bld) [Moles/Vol] 30 mmol/L High 22-[address] [facility] Comment on above: Order Comment: Speci men Type: ARTERIAL BLOOD SPECIMENOrdering Facility: [facility] Address: [address] [place] [address] Performed By: #### A LLMG ####[facility] LABCLIA [id number] [place] [address] [place] Hematocrit (Bld) [Volume fraction] 32.9 % Low 39.0-51.0 [facility] Comment on above: Order Comment: Speci men Type: ARTERIAL BLOOD SPECIMENOrdering Facility: [facility] Address: [address] [place] [address] Performed By: #### A LLMG ####[facility] LABCLIA [id number] [place] [address] [place] Hemoglobin (Bld) [Mass/Vol] 10.7 g/dL Low 13.0-17.0 [facility] Comment on above: Order Comment: Speci men Type: ARTERIAL BLOOD SPECIMENOrdering Facility: [facility] Address: [address] [place] [address] Performed By: #### A LLMG ####[facility] LABCLIA [id number] [place] [id number] [place] Lactate [Moles/Vol] 0.6 mmol/L Normal 0.5-2.2 [facility] Comment on above: Order Comment: Speci men Type: ARTERIAL BLOOD SPECIMENOrdering Facility: [facility] Address: [address] [place] [address] Performed By: #### A LLMG ####[facility] LABCLIA [id number] [address] [place] [address] [place] Magnesium [Moles/Vol] 0.59 mmol/L Normal 0.45-0.[address] [facility] Comment on above: Order Comment: Speci men Type: ARTERIAL BLOOD SPECIMENOrdering Facility: [facility] Address: [address] [place], [place] [address] Performed By: #### A LLMG ####[facility] LABCLIA [id number] [place] [id number] [place] Methemoglobin (Bld) [Mass fraction] 0.5 % Normal 0.0-1.5 [facility] Comment on above: Order Comment: Speci men Type: ARTERIAL BLOOD SPECIMENOrdering Facility: [facility] Address: [address] [place], [place] [address] Performed By: #### A LLMG ####[facility] LABCLIA [id number] [address] [address] [place] Oxygen (Bld) [Partial pressure] 132 mm Hg High 85-95 [facility] Comment on above: Order Comment: Speci men Type: ARTERIAL BLOOD SPECIMENOrdering Facility: [facility] Address: [address] [place], [place] [address] Performed By: #### A LLMG ####[facility] LABCLIA [id number] [address] [place] [address] [place] Oxygen adjusted to patient's actual temperature (Bld) [Partial pressure] 132 mmHg High 85-95 [facility] Comment on above: Order Comment: Speci men Type: ARTERIAL BLOOD SPECIMENOrdering Facility: [facility] Address: [address] [place] [address] Performed By: #### A LLMG ####[facility] LABCLIA [id number] [place] [id number] [place] Oxyhemoglobin (BldA) [Mass fraction] 97 % Normal 95-98 [facility] Comment on above: Order Comment: Speci men Type: ARTERIAL BLOOD SPECIMENOrdering Facility: [facility] Address: [address] [place] [address] Performed By: #### A LLMG ####[facility] LABCLIA [id number] [place] [address] [place] pH (Bld) 7.46 [pH] High 7.35-7.45 [facility] Comment on above: Order Comment: Speci men Type: ARTERIAL BLOOD SPECIMENOrdering Facility: [facility] Address: [address] [place] [address] Performed By: #### A LLMG ####[facility] LABCLIA [id number] [place] [address] [place] pH adjusted to patient's actual temperature (Bld) 7.46 High 7.35-7.45 [facility] Comment on above: Order Comment: Speci men Type: ARTERIAL BLOOD SPECIMENOrdering Facility: [facility] Address: [address] [place] [address] Performed By: #### A LLMG ####[facility] LABCLIA [id number] [place] [address] [place] Potassium [Moles/Vol] 3.7 mmol/L Normal 3.5-5.0 [facility] Comment on above: Order Comment: Speci men Type: ARTERIAL BLOOD SPECIMENOrdering Facility: [facility] Address: [address] [place] [address] Performed By: #### A LLMG ####[facility] LABCLIA [id number] [place] [id number] [place] Sodium [Moles/Vol] 133 mmol/L Low 136-144 [facility] Comment on above: Order Comment: Speci men Type: ARTERIAL BLOOD SPECIMENOrdering Facility: [facility] Address: [address] [place] [address] Performed By: #### A LLMG ####[facility] LABCLIA [id number] [place] [id number] [place] BRIEF OP NOTon 11-26-2024 BRIEF OP NOT Normal [facility] BUN p dialysis SerPl-mCncon 11-26-2024 Urea nitrogen post dialysis [Mass/Vol] 30 mg/dL High 02-13 [facility] Comment on above: Order Comment: Speci men Type: BLOOD SPECIMENOrdering Facility: [facility] Address: [address] [place] [address] Performed By: #### 1 1064-3 ####[facility] LABCLIA [id number] [address] [place] BUN pre dial SerPl-mCncon Urea nitrogen pre dialysis [Mass/Vol] 96 mg/dL High 02-13 [facility] Comment on above: Order Comment: Speci men Type: BLOOD SPECIMENOrdering Facility: [facility] Address: [address] [place] [address] Performed By: #### 1 1065-0 ####[facility] LABCLIA [id number] [address] [place] Basic Metabolic Profile (BMP )on 11-26-2024 BUN Normal 4-19 [facility] Comment on above: Result Comment: Canc elled via OM: MD Ordered Performed By: #### L 500.2500, L100.0100 ####[facility] [address] [place], [address] BUN/CRE Normal 10-20 [facility] Comment on above: Result Comment: Canc elled via OM: MD Ordered Performed By: #### L 500.2500, L100.0100 ####[facility] [address] [place], [address] Calcium Normal 7.6-11.0 [facility] Comment on above: Result Comment: Canc elled via OM: MD Ordered Performed By: #### L 500.2500, L100.0100 ####[facility] [address] [place], [address] CL Normal 98-108 [facility] Comment on above: Result Comment: Canc elled via OM: MD Ordered Performed By: #### L 500.2500, L100.0100 ####[facility] [address] [place], [address] CO2 Normal 21.0-32.0 [facility] Comment on above: Result Comment: Canc elled via OM: MD Ordered Performed By: #### L 500.2500, L100.0100 ####[facility] [address] [place], [address] CREAT,SERUM Normal 0.70-1.20 [facility] Comment on above: Result Comment: Canc elled via OM: MD Ordered Performed By: #### L 500.2500, L100.0100 ####[facility] [address] [place], [address] eGFR Normal >60 [facility] Comment on above: Result Comment: Canc elled via OM: MD Ordered Performed By: #### L 500.2500, L100.0100 ####[facility] [address] [place], [address] GAP Normal 5-15 [facility] Comment on above: Result Comment: Canc elled via OM: MD Ordered Performed By: #### L 500.2500, L100.0100 ####[facility] [address] [place], [address] GLU Normal 70-99 [facility] Comment on above: Result Comment: Canc elled via OM: MD Ordered Performed By: #### L 500.2500, L100.0100 ####[facility] [address] [place], [address] Potassium Normal 3.3-5.1 [facility] Comment on above: Result Comment: Canc elled via OM: MD Ordered Performed By: #### L 500.2500, L100.0100 ####[facility] [address] [place], [address] Basic Metabolic Profile (BMP) Normal 133-145 [facility] Comment on above: Result Comment: Canc elled via OM: MD Ordered Performed By: #### L 500.2500, L100.0100 ####[facility] [address] [place], [address] CASE MGT INIT ASSESon 07-- 2024 CASE MGT INIT ASSES Normal [facility] CBC W/Diff, Automatedon 07-0 Absolute Neut Normal 2.0-7.7 [facility] Comment on above: Result Comment: Canc elled via OM: MD Ordered Performed By: #### L 500.2500, L100.0100 ####[facility] [address] [place], [address] HCT Normal 40-54 [facility] Comment on above: Result Comment: Canc elled via OM: MD Ordered Performed By: #### L 500.2500, L100.0100 ####[facility] [address] [place], [address] HGB Normal 13.0-16.5 [facility] Comment on above: Result Comment: Canc elled via OM: MD Ordered Performed By: #### L 500.2500, L100.0100 ####[facility] [address] [place], [address] MCH Normal 27.0-32.0 [facility] Comment on above: Result Comment: Canc elled via OM: MD Ordered Performed By: #### L 500.2500, L100.0100 ####[facility] [address] [place], [address] MCHC Normal 32-36 [facility] Comment on above: Result Comment: Canc elled via OM: MD Ordered Performed By: #### L 500.2500, L100.0100 ####[facility] [address] [place], [address] MCV Normal 80-94 [facility] Comment on above: Result Comment: Canc elled via OM: MD Ordered Performed By: #### L 500.2500, L100.0100 ####[facility] [address] [place], [address] NEUT% Normal 47-70 [facility] Comment on above: Result Comment: Canc elled via OM: MD Ordered Performed By: #### L 500.2500, L100.0100 ####[facility] [address] [place], [address] PLT Normal 150-450 [facility] Comment on above: Result Comment: Canc elled via OM: MD Ordered Performed By: #### L 500.2500, L100.0100 ####[facility] [address] [place], [address] RBC Normal 4.6-6.2 [facility] Comment on above: Result Comment: Canc elled via OM: MD Ordered Performed By: #### L 500.2500, L100.0100 ####[facility] [address] [place], [address] RDW CV Normal 11.6-14.6 [facility] Comment on above: Result Comment: Canc elled via OM: MD Ordered Performed By: #### L 500.2500, L100.0100 ####[facility] [address] [place], [address] RDW SD Normal 35.1-43.9 [facility] Comment on above: Result Comment: Canc elled via OM: MD Ordered Performed By: #### L 500.2500, L100.0100 ####[facility] [address] [place], [address] WBC Normal 4.4-11.0 [facility] Comment on above: Result Comment: Canc elled via OM: MD Ordered Performed By: #### L 500.2500, L100.0100 ####[facility] [address] [place], [address] CBC panel Auto (Bld)on 11-26 Erythrocyte distribution width (RBC) [Ratio] 15.9 % High 11.5-15.0 [facility] Comment on above: Order Comment: Speci men Type: BLOOD SPECIMENOrdering Facility: [facility] Address: [address] [place] [address] Performed By: #### 5 8410-2 ####[facility] LABCLIA [id number] [place] [address] [place] Hematocrit (Bld) [Volume fraction] 33.8 % Low 39.0-51.0 [facility] Comment on above: Order Comment: Speci men Type: BLOOD SPECIMENOrdering Facility: [facility] Address: [address] [place] [address] Performed By: #### 5 8410-2 ####[facility] LABCLIA [id number] [place] [address] [place] Hemoglobin (Bld) [Mass/Vol] 10.7 g/dL Low 13.0-17.0 [facility] Comment on above: Order Comment: Speci men Type: BLOOD SPECIMENOrdering Facility: [facility] Address: [address] [place] [address] Performed By: #### 5 8410-2 ####[facility] LABCLIA [id number] [id number] [address] [place] MCH (RBC) [Entitic mass] 28.2 pg Normal 26.0-34.0 [facility] Comment on above: Order Comment: Speci men Type: BLOOD SPECIMENOrdering Facility: [facility] Address: [address] [place] [address] Performed By: #### 5 8410-2 ####[facility] LABCLIA [id number] [place] [address] [place] MCHC (RBC) [Mass/Vol] 31.7 g/dL Normal 30.5-36.0 [facility] Comment on above: Order Comment: Speci men Type: BLOOD SPECIMENOrdering Facility: [facility] Address: [address] [place] [address] Performed By: #### 5 8410-2 ####[facility] LABCLIA [id number] [address] [place] MCV (RBC) [Entitic vol] 88.9 fL Normal 80.0-100.0 [facility] Comment on above: Order Comment: Speci men Type: BLOOD SPECIMENOrdering Facility: [facility] Address: [address] [place] [address] Performed By: #### 5 8410-2 ####[facility] LABIA [id number] [place] [address] [place] Nucleated RBC (Bld) [#/Vol] 10*3/uL Normal <0.01 [facility] Comment on above: Order Comment: Speci men Type: BLOOD SPECIMENOrdering Facility: [facility] Address: [address] [place] [address] Performed By: #### 5 8410-2 ####[facility] [id number] [place] [address] [place] Platelet mean volume (Bld) [Entitic vol] 12.2 fL Normal 9.0-12.7 [facility] Comment on above: Order Comment: Speci men Type: BLOOD SPECIMENOrdering Facility: [facility] Address: [address] [place] [address] Performed By: #### 5 8410-2 ####[facility] [id number] [place] [address] [place] Platelets (Bld) [#/Vol] 133 10*3/uL Low 150-400 [facility] Comment on above: Order Comment: Speci men Type: BLOOD SPECIMENOrdering Facility: [facility] Address: [address] [place] [address] Performed By: #### 5 8410-2 ####[facility] [id number] [place] [address] [place] RBC (Bld) [#/Vol] 3.80 10*6/uL Low 4.20-6.00 [facility] Comment on above: Order Comment: Speci men Type: BLOOD SPECIMENOrdering Facility: [facility] Address: [address] [place] [address] Performed By: #### 5 8410-2 ####[facility] [id number] [place] [address] [place] WBC (Bld) [#/Vol] 8.99 10*3/uL Normal 3.70-11.00 [facility] Comment on above: Order Comment: Speci men Type: BLOOD SPECIMENOrdering Facility: [facility] Address: [address] [place] [address] Performed By: #### 5 8410-2 ####[facility] [id number] [place] [address] [place] CONSULT PROGon 11-26-2024 CONSULT PROG Normal [facility] Comp Metab 2000 Pnl SerPlon 11-26-2024 Sodium [Moles/Vol] 129 mmol/L Low 136-144 [facility] Comment on above: Order Comment: Speci men Type: BLOOD SPECIMENOrdering Facility: [facility] Address: [address] [place] [address] Performed By: #### 2 4323-8, 47532-0 ####[facility] [id number] [address], [address] STATES OF [facility] Order Comment: Speci men Type: ARTERIAL BLOOD SPECIMENOrdering Facility: [facility] Address: [address] [place] [address] Performed By: #### A LLBG ####[facility] [id number] [address], [address] OF [facility] Comprehensive metabolic 2000 panelon 11-26-2024 Albumin [Mass/Vol] 3.4 g/dL Low 3.9-4.9 [facility] Comment on above: Order Comment: Speci men Type: BLOOD SPECIMENOrdering Facility: [facility] Address: [address] [place] [address] Performed By: #### 2 4323-8 ####[facility] [id number] [place] [address] [place] ALP [Catalytic activity/Vol] 64 U/L Normal 38-113 [facility] Comment on above: Order Comment: Speci men Type: BLOOD SPECIMENOrdering Facility: [facility] Address: [address] [place] [address] Performed By: #### 2 4323-8 ####[facility] [id number] [address] [place] ALT [Catalytic activity/Vol] 34 U/L Normal 10-54 [facility] Comment on above: Order Comment: Speci men Type: BLOOD SPECIMENOrdering Facility: [facility] Address: [address] [place] [address] Performed By: #### 2 4323-8 ####[facility] [id number] [address], [facility]95 [place] Anion gap [Moles/Vol] 19 mmol/L High 8-15 [facility] Comment on above: Order Comment: Speci men Type: BLOOD SPECIMENOrdering Facility: [facility] Address: [address] [place] [address] Performed By: #### 2 4323-8 ####[facility] [id number] [address] [address] [place] AST [Catalytic activity/Vol] 21 U/L Normal 14-40 [facility] Comment on above: Order Comment: Speci men Type: BLOOD SPECIMENOrdering Facility: [facility] Address: [address] [place] [address] Performed By: #### 2 4323-8 ####[facility] [id number] [place] [address] [place] Bilirubin [Mass/Vol] 0.3 mg/dL Normal 0.2-1.3 [facility] Comment on above: Order Comment: Speci men Type: BLOOD SPECIMENOrdering Facility: [facility] Address: [address] [place] [address] Performed By: #### 2 4323-8 ####[facility] [id number] [place] [address] [place] Calcium [Mass/Vol] 8.7 mg/dL Normal 8.5-10.2 [facility] Comment on above: Order Comment: Speci men Type: BLOOD SPECIMENOrdering Facility: [facility] Address: [address] [place], [place] [address] Performed By: #### 2 4323-8 ####[facility] [id number] [place] [id number] [place] Chloride [Moles/Vol] 89 mmol/L Low 98-107 [facility] Comment on above: Order Comment: Speci men Type: BLOOD SPECIMENOrdering Facility: [facility] Address: [address] [place] [address] Performed By: #### 2 4323-8 ####[facility] [id number] [address] [address] [place] CO2 [Moles/Vol] 22 mmol/L Normal 22-30 [facility] Comment on above: Order Comment: Speci men Type: BLOOD SPECIMENOrdering Facility: [facility] Address: [address] [place] [address] Performed By: #### 2 4323-8 ####[facility] [id number] [place] [id number] [place] Creatinine [Mass/Vol] 7.11 mg/dL High 0.73-1.22 [facility] Comment on above: Order Comment: Speci men Type: BLOOD SPECIMENOrdering Facility: [facility] Address: [address] [place] [address] Performed By: #### 2 4323-8 ####[facility] [id number] [place] [address] [place] Creatinine and Glomerular filtration rate.predicted panel (S/P/Bld) 7 mL/min/1.73m??? Low >=60 [facility] Comment on above: Order Comment: Speci men Type: BLOOD SPECIMENOrdering Facility: [facility] Address: [address] [place] [address] Result Comment: Tessa mated Glomerular Filtration Rate [...] actual GFR. Performed By: #### 2 4323-8 ####[facility] [id number] [facility] [address] [address] [place] Glucose [Mass/Vol] 55 mg/dL Low 74-99 [facility] Comment on above: Order Comment: Speci men Type: BLOOD SPECIMENOrdering Facility: [facility] Address: [address] [place] [address] Result Comment: The [place] Diabetes Association (ADA) provides guidance for cutoff [...] Standards of Medical Care in Diabetes 2016, [place] [employer]. Diabetes Care. 2016.39(Suppl 1). Performed By: #### 2 4323-8 ####[facility] [id number] [place] [address] [place] Potassium [Moles/Vol] 5.3 mmol/L High 3.7-5.1 [facility] Comment on above: Order Comment: Speci men Type: BLOOD SPECIMENOrdering Facility: [facility] Address: [address] [place], [place] [address] Performed By: #### 2 4323-8 ####[facility] [id number] [address] [address] [place] Protein [Mass/Vol] 6.3 g/dL Normal 6.3-8.0 [facility] Comment on above: Order Comment: Speci men Type: BLOOD SPECIMENOrdering Facility: [facility] Address: [address] [place] [address] Performed By: #### 2 4323-8 ####[facility] [id number] [address] [address] [place] Sodium [Moles/Vol] 130 mmol/L Low 136-144 [facility] Comment on above: Order Comment: Speci men Type: BLOOD SPECIMENOrdering Facility: [facility] Address: [address] [place], [place] [address] Performed By: #### 2 4323-8 ####[facility] [id number] [place] [id number] [place] Urea nitrogen [Mass/Vol] 95 mg/dL High 9-24 [facility] Comment on above: Order Comment: Speci men Type: BLOOD SPECIMENOrdering Facility: [facility] Address: [address] [place] [address] Performed By: #### 2 4323-8 ####[facility] [id number] [place] [id number] [place] Albumin [Mass/Vol] 3.4 g/dL Low 3.9-4.9 [facility] Comment on above: Order Comment: Speci men Type: BLOOD SPECIMENOrdering Facility: [facility] Address: [address] [place] [address] Performed By: #### 2 4323-8, ####[facility] [id number] [place] [id number] [place] ALP [Catalytic activity/Vol] 63 U/L Normal 38-113 [facility] Comment on above: Order Comment: Speci men Type: BLOOD SPECIMENOrdering Facility: [facility] Address: [address] [place], [place] [address] Performed By: #### 2 4323-8, ####[facility] [id number] [place] [id number] [place] ALT [Catalytic activity/Vol] 36 U/L Normal 10-54 [facility] Comment on above: Order Comment: Speci men Type: BLOOD SPECIMENOrdering Facility: [facility] Address: [address] [place], [place] [address] Performed By: #### 2 4323-8, ####[facility] [id number] [place] [id number] [place] Anion gap [Moles/Vol] 19 mmol/L High 8-15 [facility] Comment on above: Order Comment: Speci men Type: BLOOD SPECIMENOrdering Facility: [facility] Address: [address] [place] [address] Performed By: #### 2 4323-8, ####[facility] [id number] [place] [address] [place] AST [Catalytic activity/Vol] 20 U/L Normal 14-40 [facility] Comment on above: Order Comment: Speci men Type: BLOOD SPECIMENOrdering Facility: [facility] Address: [address] [place] [address] Performed By: #### 2 4323-8, ####[facility] [id number] [place] [address] [place] Bilirubin [Mass/Vol] 0.2 mg/dL Normal 0.2-1.3 [facility] Comment on above: Order Comment: Speci men Type: BLOOD SPECIMENOrdering Facility: [facility] Address: [address] [place] [address] Performed By: #### 2 4323-8, ####[facility] [id number] [place] [id number] [place] Calcium [Mass/Vol] 8.9 mg/dL Normal 8.5-10.2 [facility] Comment on above: Order Comment: Speci men Type: BLOOD SPECIMENOrdering Facility: [facility] Address: [address] [place] [address] Performed By: #### 2 4323-8, ####[facility] [id number] [place] [id number] [place] Chloride [Moles/Vol] 88 mmol/L Low 98-107 [facility] Comment on above: Order Comment: Speci men Type: BLOOD SPECIMENOrdering Facility: [facility] Address: [address] [place] [address] Performed By: #### 2 4323-8, ####[facility] [id number] [address] [address] [place] CO2 [Moles/Vol] 22 mmol/L Normal 22-30 [facility] Comment on above: Order Comment: Speci men Type: BLOOD SPECIMENOrdering Facility: [facility] Address: [address] [place] [address] Performed By: #### 2 4323-8, ####[facility] [id number] [place] [address] [place] Creatinine [Mass/Vol] 7.11 mg/dL High 0.73-1.22 [facility] Comment on above: Order Comment: Speci men Type: BLOOD SPECIMENOrdering Facility: [facility] Address: [address] [place] [address] Performed By: #### 2 4323-8, ####[facility] [id number] [address] [place] Creatinine and Glomerular filtration rate.predicted panel (S/P/Bld) 7 mL/min/1.73m??? Low >=60 [facility] Comment on above: Order Comment: Speci men Type: BLOOD SPECIMENOrdering Facility: [facility] Address: [address] [place] [address] Result Comment: Tessa mated Glomerular Filtration Rate [...] actual GFR. Performed By: #### 2 4323-8, ####[facility] [id number] [address] [address] [place] Glucose [Mass/Vol] 133 mg/dL High 74-99 [facility] Comment on above: Order Comment: Speci men Type: BLOOD SPECIMENOrdering Facility: [facility] Address: [address] [place] [address] Result Comment: The [place] Diabetes Association (ADA) provides guidance for cutoff [...] Standards of Medical Care in Diabetes 2016, [place] [employer]. Diabetes Care. 2016.39(Suppl 1). Performed By: #### 2 4323-8, ####[facility] [id number] [address] [address] [place] Potassium [Moles/Vol] 5.6 mmol/L High 3.7-5.1 [facility] Comment on above: Order Comment: Speci men Type: BLOOD SPECIMENOrdering Facility: [facility] Address: [address] [place] [address] Performed By: #### 2 4328, ####[facility] [id number] [address] [address] [place] Protein [Mass/Vol] 6.3 g/dL Normal 6.3-8.0 [facility] Comment on above: Order Comment: Speci men Type: BLOOD SPECIMENOrdering Facility: [facility] Address: [address] [place] [address] Performed By: #### 2 4322-12, ####[facility] [id number] [address] [address] [place] Urea nitrogen [Mass/Vol] 94 mg/dL High 9-24 [facility] Comment on above: Order Comment: Speci men Type: BLOOD SPECIMENOrdering Facility: [facility] Address: [address] [place], [place] [address] Performed By: #### 2 4323-8, ####[facility] [id number] [address] [address] [place] Magnesium SerPl-mCncon 11-26 Magnesium [Mass/Vol] 2.6 mg/dL High 1.7-2.3 [facility] Comment on above: Order Comment: Speci men Type: BLOOD SPECIMENOrdering Facility: [facility] Address: [address] [place] [address] Performed By: #### 2 4328, ####[facility] [id number] [place] [id number] [place] THERAPY NTon 11-26-2024 THERAPY NT Normal [facility] Urea nitrogen post dialysis [Mass/Vol]on 11-26-2024 UREA REDUCTION RATIO WITH BUNPR 69 % Normal [facility] Comment on above: Order Comment: Speci men Type: BLOOD SPECIMENOrdering Facility: [facility] Address: [address] [place], [place] [address] Performed By: #### 1 1064-3 ####[facility] [id number] [address] [address] [place] XR CHEST 1V FRONTAL PORTon 0 11-26-2024 XR CHEST 1V FRONTAL PORT Normal [facility] ALLIED HEALTHon 11-25-2024 ALLIED HEALTH HNO ID: [id number] Author: ISRAEL MOODY Chaplain Service: Process Group Author Type: Cold Meat Chef Type: Allied Health Filed: 11/25/2024 16:42 Note Text: The patient was anointed. Normal [facility] ARTERIAL BLOOD GASESon 11-25 Base excess Calc (Bld) [Moles/Vol] 1 mmol/L Normal 0-2 [facility] Comment on above: Order Comment: Speci men Type: ARTERIAL BLOOD SPECIMENOrdering Facility: [facility] Address: [address] [place] [address] Performed By: #### A LLBG ####[facility] [id number] [place] [address] [place] Body temperature 97.7 [degF] Normal [facility] Comment on above: Order Comment: Speci men Type: ARTERIAL BLOOD SPECIMENOrdering Facility: [facility] Address: [address] [place] [address] Performed By: #### A LLBG ####[facility] [id number] [place] [address] [place] Calcium.ionized (Bld) [Mass/Vol] 1.09 mmol/L Normal 1.08-1.30 [facility] Comment on above: Order Comment: Speci men Type: ARTERIAL BLOOD SPECIMENOrdering Facility: [facility] Address: [address] [place] [address] Performed By: #### A LLBG ####[facility] [id number] [place] [address] [place] Calcium.ionized adjusted to pH 7.4 (BldA) [Moles/Vol] 1.08 mmol/L Normal 1.08-1.30 [facility] Comment on above: Order Comment: Speci men Type: ARTERIAL BLOOD SPECIMENOrdering Facility: [facility] Address: [address] [place] [address] Performed By: #### A LLBG ####[facility] [id number] [place] [address] [place] Carboxyhemoglobin (BldA) [Mass fraction] 0.3 % Normal 0.0-2.0 [facility] Comment on above: Order Comment: Speci men Type: ARTERIAL BLOOD SPECIMENOrdering Facility: [facility] Address: [address] [place] [address] Result Comment: Carb oxyhemoglobin Reference Range for Smokers: 2.0-8.0% Performed By: #### A LLBG ####[facility] [id number] [place] [address] [place] CO2 (Bld) [Partial pressure] 43 mm Hg Normal 36-46 [facility] Comment on above: Order Comment: Speci men Type: ARTERIAL BLOOD SPECIMENOrdering Facility: [facility] Address: [address] [place] [address] Performed By: #### A LLBG ####[facility] [id number] [place] [address] [place] CO2 adjusted to patient's actual temperature (Bld) [Partial pressure] 42 mmHg Normal 36-46 [facility] Comment on above: Order Comment: Speci men Type: ARTERIAL BLOOD SPECIMENOrdering Facility: [facility] Address: [address] [place] [address] Performed By: #### A LLBG ####[facility] [id number] [place] [address] [place] Glucose [Mass/Vol] 92 mg/dL Normal 60-105 [facility] Comment on above: Order Comment: Speci men Type: ARTERIAL BLOOD SPECIMENOrdering Facility: [facility] Address: [address] [place] [address] Performed By: #### A LLBG ####[facility] [id number] [place] [address] [place] HCO3 (Bld) [Moles/Vol] 25 mmol/L Normal 22-[address] [facility] Comment on above: Order Comment: Speci men Type: ARTERIAL BLOOD SPECIMENOrdering Facility: [facility] Address: [address] [place] [address] Performed By: #### A LLBG ####[facility] [id number] [place] [address] [place] Hematocrit (Bld) [Volume fraction] 32.9 % Low 39.0-51.0 [facility] Comment on above: Order Comment: Speci men Type: ARTERIAL BLOOD SPECIMENOrdering Facility: [facility] Address: [address] [place] [address] Performed By: #### A LLBG ####[facility] [id number] [place] [address] [place] Hemoglobin (Bld) [Mass/Vol] 10.6 g/dL Low 13.0-17.0 [facility] Comment on above: Order Comment: Speci men Type: ARTERIAL BLOOD SPECIMENOrdering Facility: [facility] Address: [address] [place] [address] Performed By: #### A LLBG ####[facility] [id number] [place] [address] [place] Lactate [Moles/Vol] 1.0 mmol/L Normal 0.5-2.2 [facility] Comment on above: Order Comment: Speci men Type: ARTERIAL BLOOD SPECIMENOrdering Facility: [facility] Address: [address] [place] [address] Performed By: #### A LLBG ####[facility] [id number] [place] [address] [place] LITERS 1 Liters/min Normal [facility] Comment on above: Order Comment: Speci men Type: ARTERIAL BLOOD SPECIMENOrdering Facility: [facility] Address: [address] [place] [address] Performed By: #### A LLBG ####[facility] [id number] [place] [address] [place] Methemoglobin (Bld) [Mass fraction] 0.3 % Normal 0.0-1.5 [facility] Comment on above: Order Comment: Speci men Type: ARTERIAL BLOOD SPECIMENOrdering Facility: [facility] Address: [address] [place] [address] Performed By: #### A LLBG ####[facility] [id number] [place] [id number] [facility] OF [place] O2 THERAPY NC = Nasal Cannula Normal [facility] Comment on above: Order Comment: Speci men Type: ARTERIAL BLOOD SPECIMENOrdering Facility: [facility] Address: [address] [place] [address] Performed By: #### A LLBG ####[facility] [id number] [place] [id number] [facility] OF [place] Oxygen (Bld) [Partial pressure] 147 mm Hg High 85-95 [facility] Comment on above: Order Comment: Speci men Type: ARTERIAL BLOOD SPECIMENOrdering Facility: [facility] Address: [address] [place] [address] Performed By: #### A LLBG ####[facility] [id number] [address] [place] Oxygen adjusted to patient's actual temperature (Bld) [Partial pressure] 144 mmHg High 85-95 [facility] Comment on above: Order Comment: Speci men Type: ARTERIAL BLOOD SPECIMENOrdering Facility: [facility] Address: [address] [place] [address] Performed By: #### A LLBG ####[facility] [id number] [place] [id number] [place] Oxyhemoglobin (BldA) [Mass fraction] 97 % Normal 95-98 [facility] Comment on above: Order Comment: Speci men Type: ARTERIAL BLOOD SPECIMENOrdering Facility: [facility] Address: [address] [place], [place] [address] Performed By: #### A LLBG ####[facility] [id number] [address] [address] [place] pH (Bld) 7.39 [pH] Normal 7.35-7.45 [facility] Comment on above: Order Comment: Speci men Type: ARTERIAL BLOOD SPECIMENOrdering Facility: [facility] Address: [address] [place] [address] Performed By: #### A LLBG ####[facility] [id number] [place] [address] [place] pH adjusted to patient's actual temperature (Bld) 7.39 Normal 7.35-7.45 [facility] Comment on above: Order Comment: Speci men Type: ARTERIAL BLOOD SPECIMENOrdering Facility: [facility] Address: [address] [place] [address] Performed By: #### A LLBG ####[facility] [id number] [place] [address] [place] Potassium [Moles/Vol] 5.3 mmol/L High 3.5-5.0 [facility] [facility] Comment on above: Order Comment: Speci men Type: ARTERIAL BLOOD SPECIMENOrdering Facility: [facility] Address: [address] [place] [address] Performed By: #### A LLBG ####[facility] [id number] [place] [id number] [place] Sodium [Moles/Vol] 129 mmol/L Low 136-144 [facility] Comment on above: Order Comment: Speci men Type: ARTERIAL BLOOD SPECIMENOrdering Facility: [facility] Address: [address] [place] [address] Performed By: #### A LLBG ####[facility] [id number] [place] [id number] [place] Base excess Calc (Bld) [Moles/Vol] 1 mmol/L Normal 0-2 [facility] Comment on above: Order Comment: Speci men Type: ARTERIAL BLOOD SPECIMENOrdering Facility: [facility] Address: [address] [place] [address] Performed By: #### A LLBG ####[facility] [id number] [place] [address] [place] Body temperature 97.7 [degF] Normal [facility] Comment on above: Order Comment: Speci men Type: ARTERIAL BLOOD SPECIMENOrdering Facility: [facility] Address: [address] [place] [address] Performed By: #### A LLBG ####[facility] [id number] [place] [address] [place] Calcium.ionized (Bld) [Mass/Vol] 1.08 mmol/L Normal 1.08-1.30 [facility] Comment on above: Order Comment: Speci men Type: ARTERIAL BLOOD SPECIMENOrdering Facility: [facility] Address: [address] [place] [address] Performed By: #### A LLBG ####[facility] [id number] [place] [address] [place] Calcium.ionized adjusted to pH 7.4 (BldA) [Moles/Vol] 1.07 mmol/L Low 1.08-1.30 [facility] Comment on above: Order Comment: Speci men Type: ARTERIAL BLOOD SPECIMENOrdering Facility: [facility] Address: [address] [place] [address] Performed By: #### A LLBG ####[facility] [id number] [place] [address] [place] Carboxyhemoglobin (BldA) [Mass fraction] 0.3 % Normal 0.0-2.0 [facility] Comment on above: Order Comment: Speci men Type: ARTERIAL BLOOD SPECIMENOrdering Facility: [facility] Address: [address] [place] [address] Result Comment: Carb oxyhemoglobin Reference Range for Smokers: 2.0-8.0% Performed By: #### A LLBG ####[facility] [id number] [place] [address] [place] CO2 (Bld) [Partial pressure] 44 mm Hg Normal 36-46 [facility] Comment on above: Order Comment: Speci men Type: ARTERIAL BLOOD SPECIMENOrdering Facility: [facility] Address: [address] [place] [address] Performed By: #### A LLBG ####[facility] [id number] [address] [place] CO2 adjusted to patient's actual temperature (Bld) [Partial pressure] 43 mmHg Normal 36-46 [facility] Comment on above: Order Comment: Speci men Type: ARTERIAL BLOOD SPECIMENOrdering Facility: [facility] Address: [address] [place] [address] Performed By: #### A LLBG ####[facility] [id number] [place] [address] [place] Glucose [Mass/Vol] 157 mg/dL High 60-105 [facility] Comment on above: Order Comment: Speci men Type: ARTERIAL BLOOD SPECIMENOrdering Facility: [facility] Address: [address] [place] [address] Performed By: #### A LLBG ####[facility] [id number] [place] [address] [place] HCO3 (Bld) [Moles/Vol] 26 mmol/L Normal 22-[address] [facility] Comment on above: Order Comment: Speci men Type: ARTERIAL BLOOD SPECIMENOrdering Facility: [facility] Address: [address] [place] [address] Performed By: #### A LLBG ####[facility] [id number] [id number] [address] [place] Hematocrit (Bld) [Volume fraction] 32.7 % Low 39.0-51.0 [facility] Comment on above: Order Comment: Speci men Type: ARTERIAL BLOOD SPECIMENOrdering Facility: [facility] Address: [address] [place] [address] Performed By: #### A LLBG ####[facility] [id number] [place] [address] [place] Hemoglobin (Bld) [Mass/Vol] 10.6 g/dL Low 13.0-17.0 [facility] Comment on above: Order Comment: Speci men Type: ARTERIAL BLOOD SPECIMENOrdering Facility: [facility] Address: [address] [place] [address] Performed By: #### A LLBG ####[facility] [id number] [place] [address] [place] Lactate [Moles/Vol] 1.2 mmol/L Normal 0.5-2.2 [facility] Comment on above: Order Comment: Speci men Type: ARTERIAL BLOOD SPECIMENOrdering Facility: [facility] Address: [address] [place] [address] Performed By: #### A LLBG ####[facility] [id number] [place] [address] [place] Methemoglobin (Bld) [Mass fraction] 0.2 % Normal 0.0-1.5 [facility] Comment on above: Order Comment: Speci men Type: ARTERIAL BLOOD SPECIMENOrdering Facility: [facility] Address: [address] [place] [address] Performed By: #### A LLBG ####[facility] [id number] [place] [address] [place] O2 THERAPY RA=Room Air Normal [facility] Comment on above: Order Comment: Speci men Type: ARTERIAL BLOOD SPECIMENOrdering Facility: [facility] Address: [address] [place] [address] Performed By: #### A LLBG ####[facility] [id number] [address] [address] [place] Oxygen (Bld) [Partial pressure] 136 mm Hg High 85-95 [facility] Comment on above: Order Comment: Speci men Type: ARTERIAL BLOOD SPECIMENOrdering Facility: [facility] Address: [address] [place] [address] Performed By: #### A LLBG ####[facility] [id number] [address] [address] [place] Oxygen adjusted to patient's actual temperature (Bld) [Partial pressure] 134 mmHg High 85-95 [facility] Comment on above: Order Comment: Speci men Type: ARTERIAL BLOOD SPECIMENOrdering Facility: [facility] Address: [address] [place] [address] Performed By: #### A LLBG ####[facility] [id number] [place] [id number] [place] Oxyhemoglobin (BldA) [Mass fraction] 97 % Normal 95-98 [facility] Comment on above: Order Comment: Speci men Type: ARTERIAL BLOOD SPECIMENOrdering Facility: [facility] Address: [address] [place] [address] Performed By: #### A LLBG ####[facility] [id number] [place] [id number] [place] pH (Bld) 7.39 [pH] Normal 7.35-7.45 [facility] Comment on above: Order Comment: Speci men Type: ARTERIAL BLOOD SPECIMENOrdering Facility: [facility] Address: [address] [place] [address] Performed By: #### A LLBG ####[facility] [id number] [place] [id number] [place] pH adjusted to patient's actual temperature (Bld) 7.39 Normal 7.35-7.45 [facility] Comment on above: Order Comment: Speci men Type: ARTERIAL BLOOD SPECIMENOrdering Facility: [facility] Address: [address] [place] [address] Performed By: #### A LLBG ####[facility] [id number] [place] [address] [place] PO2 / FIO2 RATIO 648 mmHg Normal >300 [facility] Comment on above: Order Comment: Speci men Type: ARTERIAL BLOOD SPECIMENOrdering Facility: [facility] Address: [address] [place] [address] Performed By: #### A LLBG ####[facility] [id number] [place] [address] [place] Potassium [Moles/Vol] 5.3 mmol/L High 3.5-5.0 [facility] Comment on above: Order Comment: Speci men Type: ARTERIAL BLOOD SPECIMENOrdering Facility: [facility] Address: [address] [place] [address] Performed By: #### A LLBG ####[facility] [id number] [place] [address] [place] Sodium [Moles/Vol] 129 mmol/L Low 136-144 [facility] Comment on above: Order Comment: Speci men Type: ARTERIAL BLOOD SPECIMENOrdering Facility: [facility] Address: [address] [place] [address] Performed By: #### A LLBG ####[facility] [id number] [place] [id number] [place] Base excess Calc (Bld) [Moles/Vol] 1 mmol/L Normal 0-2 [facility] Comment on above: Order Comment: Speci men Type: ARTERIAL BLOOD SPECIMENOrdering Facility: [facility] Address: [address] [place] [address] Performed By: #### A LLBG ####[facility] [id number] [place] [address] [place] Body temperature 97.88 [degF] Normal [facility] Comment on above: Order Comment: Speci men Type: ARTERIAL BLOOD SPECIMENOrdering Facility: [facility] Address: [address] [place] [address] Performed By: #### A LLBG ####[facility] [id number] [place] [address] [place] Calcium.ionized (Bld) [Mass/Vol] 1.12 mmol/L Normal 1.08-1.30 [facility] Comment on above: Order Comment: Speci men Type: ARTERIAL BLOOD SPECIMENOrdering Facility: [facility] Address: [address] [place] [address] Performed By: #### A LLBG ####[facility] [id number] [place] [address] [place] Calcium.ionized adjusted to pH 7.4 (BldA) [Moles/Vol] 1.11 mmol/L Normal 1.08-1.30 [facility] Comment on above: Order Comment: Speci men Type: ARTERIAL BLOOD SPECIMENOrdering Facility: [facility] Address: [address] [place] [address] Performed By: #### A LLBG ####[facility] [id number] [place] [address] [place] Carboxyhemoglobin (BldA) [Mass fraction] 1.1 % Normal 0.0-2.0 [facility] Comment on above: Order Comment: Speci men Type: ARTERIAL BLOOD SPECIMENOrdering Facility: [facility] Address: [address] [place] [address] Result Comment: Carb oxyhemoglobin Reference Range for Smokers: 2.0-8.0% Performed By: #### A LLBG ####[facility] [id number] [address] [address] [place] CO2 (Bld) [Partial pressure] 43 mm Hg Normal 36-46 [facility] Comment on above: Order Comment: Lesvia men Type: ARTERIAL BLOOD SPECIMENOrdering Facility: [facility] Address: [address] [place] [address] Performed By: #### A LLBG ####[facility] [id number] [address] [place] CO2 adjusted to patient's actual temperature (Bld) [Partial pressure] 42 mmHg Normal 36-46 [facility] Comment on above: Order Comment: Lesvia men Type: ARTERIAL BLOOD SPECIMENOrdering Facility: [facility] Address: [address] [place] [address] Performed By: #### A LLBG ####[facility] [id number] [place] [address] [place] Glucose [Mass/Vol] 175 mg/dL High 74-99 [facility] Comment on above: Order Comment: Ruddyi men Type: ARTERIAL BLOOD SPECIMENOrdering Facility: [facility] Address: [address] [place] [address] Performed By: #### A LLBG ####[facility] [id number] [address] [place] Order Comment: Ruddyi men Type: BLOOD SPECIMENOrdering Facility: [facility] Address: [address] [place] [address] Result Comment: The [place] [employer] (ADA) provides guidance for cutoff [...] Standards of Medical Care in Diabetes 2016, [place] [employer]. Diabetes Care. 2016.39(Suppl 1). Performed By: #### 2 [id number] ####[facility] [id number] [place] [address] [place] HCO3 (Bld) [Moles/Vol] 25 mmol/L Normal 22-[address] [facility] Comment on above: Order Comment: Speci men Type: ARTERIAL BLOOD SPECIMENOrdering Facility: [facility] Address: [address] [place] [address] Performed By: #### A LLBG ####[facility] [id number] [place] [address] [place] Hematocrit (Bld) [Volume fraction] 33.9 % Low 39.0-51.0 [facility] Comment on above: Order Comment: Speci men Type: ARTERIAL BLOOD SPECIMENOrdering Facility: [facility] Address: [address] [place] [address] Performed By: #### A LLBG ####[facility] [id number] [place] [address] [place] Hemoglobin (Bld) [Mass/Vol] 11.0 g/dL Low 13.0-17.0 [facility] Comment on above: Order Comment: Speci men Type: ARTERIAL BLOOD SPECIMENOrdering Facility: [facility] Address: [address] [place] [address] Performed By: #### A LLBG ####[facility] [id number] [place] [address] [place] Lactate [Moles/Vol] 1.0 mmol/L Normal 0.5-2.2 [facility] Comment on above: Order Comment: Speci men Type: ARTERIAL BLOOD SPECIMENOrdering Facility: [facility] Address: [address] [place] [address] Performed By: #### A LLBG ####[facility] [id number] [address] [place] [address] [place] Methemoglobin (Bld) [Mass fraction] 1.0 % Normal 0.0-1.5 [facility] Comment on above: Order Comment: Speci men Type: ARTERIAL BLOOD SPECIMENOrdering Facility: [facility] Address: [address] [place] [address] Performed By: #### A LLBG ####[facility] [id number] [address] [place] [address] [place] O2 THERAPY RA=Room Air Normal [facility] Comment on above: Order Comment: Speci men Type: ARTERIAL BLOOD SPECIMENOrdering Facility: [facility] Address: [address] [place] [address] Performed By: #### A LLBG ####[facility] [id number] [address] [place] [address] [place] Oxygen (Bld) [Partial pressure] 169 mm Hg High 85-95 [facility] Comment on above: Order Comment: Speci men Type: ARTERIAL BLOOD SPECIMENOrdering Facility: [facility] Address: [address] [place], [place] [address] Performed By: #### A LLBG ####[facility] [id number] [address] [place] [address] [place] Oxygen adjusted to patient's actual temperature (Bld) [Partial pressure] 167 mmHg High 85-95 [facility] Comment on above: Order Comment: Speci men Type: ARTERIAL BLOOD SPECIMENOrdering Facility: [facility] Address: [address] [place], [place] [address] Performed By: #### A LLBG ####[facility] [id number] [facility] [address] [place] [address] [place] Oxyhemoglobin (BldA) [Mass fraction] 97 % Normal 95-98 [facility] Comment on above: Order Comment: Speci men Type: ARTERIAL BLOOD SPECIMENOrdering Facility: [facility] Address: [address] [place] [address] Performed By: #### A LLBG ####[facility] [id number] [place] [address] [place] pH (Bld) 7.39 [pH] Normal 7.35-7.45 [facility] Comment on above: Order Comment: Speci men Type: ARTERIAL BLOOD SPECIMENOrdering Facility: [facility] Address: [address] [place] [address] Performed By: #### A LLBG ####[facility] [id number] [place] [address] [place] pH adjusted to patient's actual temperature (Bld) 7.39 Normal 7.35-7.45 [facility] Comment on above: Order Comment: Speci men Type: ARTERIAL BLOOD SPECIMENOrdering Facility: [facility] Address: [address] [place] [address] Performed By: #### A LLBG ####[facility] [id number] [place] [address] [place] PO2 / FIO2 RATIO 805 mmHg Normal >300 [facility] Comment on above: Order Comment: Speci men Type: ARTERIAL BLOOD SPECIMENOrdering Facility: [facility] Address: [address] [place] [address] Performed By: #### A LLBG ####[facility] [id number] [place] [id number] [place] Potassium [Moles/Vol] 5.3 mmol/L High 3.5-5.0 [facility] Comment on above: Order Comment: Speci men Type: ARTERIAL BLOOD SPECIMENOrdering Facility: [facility] Address: [address] [place] [address] Performed By: #### A LLBG ####[facility] [id number] [place] [id number] [place] Sodium [Moles/Vol] 131 mmol/L Low 136-144 [facility] Comment on above: Order Comment: Speci men Type: ARTERIAL BLOOD SPECIMENOrdering Facility: [facility] Address: [address] [place] [address] Performed By: #### A LLBG ####[facility] [id number] [place] [address] [place] Base excess Calc (Bld) [Moles/Vol] 0 mmol/L Normal 0-2 [facility] Comment on above: Order Comment: Speci men Type: ARTERIAL BLOOD SPECIMENOrdering Facility: [facility] Address: [address] [place] [address] Performed By: #### A LLBG ####[facility] [id number] [place] [address] [place] Body temperature 97.52 [degF] Normal [facility] Comment on above: Order Comment: Speci men Type: ARTERIAL BLOOD SPECIMENOrdering Facility: [facility] Address: [address] [place] [address] Performed By: #### A LLBG ####[facility] [id number] [place] [address] [place] Calcium.ionized (Bld) [Mass/Vol] 1.10 mmol/L Normal 1.08-1.30 [facility] Comment on above: Order Comment: Speci men Type: ARTERIAL BLOOD SPECIMENOrdering Facility: [facility] Address: [address] [place] [address] Performed By: #### A LLBG ####[facility] [id number] [place] [address] [place] Calcium.ionized adjusted to pH 7.4 (BldA) [Moles/Vol] 1.09 mmol/L Normal 1.08-1.30 [facility] Comment on above: Order Comment: Speci men Type: ARTERIAL BLOOD SPECIMENOrdering Facility: [facility] Address: [address] [place] [address] Performed By: #### A LLBG ####[facility] [id number] [address] [address] [place] Carboxyhemoglobin (BldA) [Mass fraction] 1.3 % Normal 0.0-2.0 [facility] Comment on above: Order Comment: Speci men Type: ARTERIAL BLOOD SPECIMENOrdering Facility: [facility] Address: [address] [place], [place] [address] Result Comment: Carb oxyhemoglobin Reference Range for Smokers: 2.0-8.0% Performed By: #### A LLBG ####[facility] [id number] [place] [id number] [place] CO2 (Bld) [Partial pressure] 45 mm Hg Normal 36-46 [facility] Comment on above: Order Comment: Speci men Type: ARTERIAL BLOOD SPECIMENOrdering Facility: [facility] Address: [address] [place] [address] Performed By: #### A LLBG ####[facility] [id number] [place] [address] [place] CO2 adjusted to patient's actual temperature (Bld) [Partial pressure] 43 mmHg Normal 36-46 [facility] Comment on above: Order Comment: Speci men Type: ARTERIAL BLOOD SPECIMENOrdering Facility: [facility] Address: [address] [place] [address] Performed By: #### A LLBG ####[facility] [id number] [place] [id number] [place] Glucose [Mass/Vol] 179 mg/dL High 60-105 [facility] Comment on above: Order Comment: Speci men Type: ARTERIAL BLOOD SPECIMENOrdering Facility: [facility] Address: [address] [place] [address] Performed By: #### A LLBG ####[facility] [id number] [place] [address] [place] HCO3 (Bld) [Moles/Vol] 25 mmol/L Normal 22-[address] [facility] Comment on above: Order Comment: Speci men Type: ARTERIAL BLOOD SPECIMENOrdering Facility: [facility] Address: [address] [place] [address] Performed By: #### A LLBG ####[facility] [id number] [place] [address] [place] Hematocrit (Bld) [Volume fraction] 35.9 % Low 39.0-51.0 [facility] Comment on above: Order Comment: Speci men Type: ARTERIAL BLOOD SPECIMENOrdering Facility: [facility] Address: [address] [place] [address] Performed By: #### A LLBG ####[facility] [id number] [place] [address] [place] Hemoglobin (Bld) [Mass/Vol] 11.6 g/dL Low 13.0-17.0 [facility] Comment on above: Order Comment: Speci men Type: ARTERIAL BLOOD SPECIMENOrdering Facility: [facility] Address: [address] [place] [address] Performed By: #### A LLBG ####[facility] [id number] [place] [address] [place] Lactate [Moles/Vol] 1.3 mmol/L Normal 0.5-2.2 [facility] Comment on above: Order Comment: Speci men Type: ARTERIAL BLOOD SPECIMENOrdering Facility: [facility] Address: [address] [place] [address] Performed By: #### A LLBG ####[facility] [id number] [place] [address] [place] Methemoglobin (Bld) [Mass fraction] 1.4 % Normal 0.0-1.5 [facility] Comment on above: Order Comment: Speci men Type: ARTERIAL BLOOD SPECIMENOrdering Facility: [facility] Address: [address] [place] [address] Performed By: #### A LLBG ####[facility] [id number] [place] [id number] [place] O2 THERAPY RA=Room Air Normal [facility] Comment on above: Order Comment: Speci men Type: ARTERIAL BLOOD SPECIMENOrdering Facility: [facility] Address: [address] [place] [address] Performed By: #### A LLBG ####[facility] [id number] [place] [id number] [place] Oxygen (Bld) [Partial pressure] 95 mm Hg Normal 85-95 [facility] Comment on above: Order Comment: Speci men Type: ARTERIAL BLOOD SPECIMENOrdering Facility: [facility] Address: [address] [place] [address] Performed By: #### A LLBG ####[facility] [facility] [id number] [place] [address] [place] Oxygen adjusted to patient's actual temperature (Bld) [Partial pressure] 92 mmHg Normal 85-95 [facility] Comment on above: Order Comment: Speci men Type: ARTERIAL BLOOD SPECIMENOrdering Facility: [facility] Address: [address] [place] [address] Performed By: #### A LLBG ####[facility] LABCLIA [id number] [place] [id number] [place] Oxyhemoglobin (BldA) [Mass fraction] 94 % Low 95-98 [facility] Comment on above: Order Comment: Speci men Type: ARTERIAL BLOOD SPECIMENOrdering Facility: [facility] Address: [address] [place], [place] [address] Performed By: #### A LLBG ####[facility] LABCLIA [id number] [address] [address] [place] pH (Bld) 7.37 [pH] Normal 7.35-7.45 [facility] Comment on above: Order Comment: Speci men Type: ARTERIAL BLOOD SPECIMENOrdering Facility: [facility] Address: [address] [place] [address] Performed By: #### A LLBG ####[facility] LABCLIA [id number] [place] [address] [place] pH adjusted to patient's actual temperature (Bld) 7.38 Normal 7.35-7.45 [facility] Comment on above: Order Comment: Speci men Type: ARTERIAL BLOOD SPECIMENOrdering Facility: [facility] Address: [address] [place] [address] Performed By: #### A LLBG ####[facility] LABCLIA [id number] [place] [address] [place] PO2 / FIO2 RATIO 452 mmHg Normal >300 [facility] Comment on above: Order Comment: Speci men Type: ARTERIAL BLOOD SPECIMENOrdering Facility: [facility] Address: [address] [place] [address] Performed By: #### A LLBG ####[facility] LABCLIA [id number] [place] [address] [place] Potassium [Moles/Vol] 5.3 mmol/L High 3.5-5.0 [facility] Comment on above: Order Comment: Speci men Type: ARTERIAL BLOOD SPECIMENOrdering Facility: [facility] Address: [address] [place] [address] Performed By: #### A LLBG ####[facility] LABCLIA [id number] [place] [id number] [place] Sodium [Moles/Vol] 130 mmol/L Low 136-144 [facility] Comment on above: Order Comment: Speci men Type: ARTERIAL BLOOD SPECIMENOrdering Facility: [facility] Address: [address] [place] [address] Performed By: #### A LLBG ####[facility] LABIA [id number] [place] [address] [place] Base excess Calc (Bld) [Moles/Vol] 2 mmol/L Normal 0-2 [facility] Comment on above: Order Comment: Speci men Type: ARTERIAL BLOOD SPECIMENOrdering Facility: [facility] Address: [address] [place] [address] Performed By: #### A LLBG ####[facility] LABIA [id number] [place] [address] [place] Body temperature 98.6 [degF] Normal [facility] Comment on above: Order Comment: Speci men Type: ARTERIAL BLOOD SPECIMENOrdering Facility: [facility] Address: [address] [place] [address] Performed By: #### A LLBG ####[facility] LABIA [id number] [place] [address] [place] Calcium.ionized (Bld) [Mass/Vol] 1.10 mmol/L Normal 1.08-1.30 [facility] Comment on above: Order Comment: Speci men Type: ARTERIAL BLOOD SPECIMENOrdering Facility: [facility] Address: [address] [place] [address] Performed By: #### A LLBG ####[facility] LABCLIA [id number] [place] [address] [place] Calcium.ionized adjusted to pH 7.4 (BldA) [Moles/Vol] 1.08 mmol/L Normal 1.08-1.30 [facility] Comment on above: Order Comment: Speci men Type: ARTERIAL BLOOD SPECIMENOrdering Facility: [facility] Address: [address] [place] [address] Performed By: #### A LLBG ####[facility] LABCLIA [id number] [place] [address] [place] Carboxyhemoglobin (BldA) [Mass fraction] 1.4 % Normal 0.0-2.0 [facility] Comment on above: Order Comment: Speci men Type: ARTERIAL BLOOD SPECIMENOrdering Facility: [facility] Address: [address] [place] [address] Result Comment: Carb oxyhemoglobin Reference Range for Smokers: 2.0-8.0% Performed By: #### A LLBG ####[facility] LABCLIA [id number] [place] [address] [place] CO2 (Bld) [Partial pressure] 47 mm Hg High 36-46 [facility] Comment on above: Order Comment: Speci men Type: ARTERIAL BLOOD SPECIMENOrdering Facility: [facility] Address: [address] [place] [address] Performed By: #### A LLBG ####[facility] LABCLIA [id number] [place] [address] [place] Glucose [Mass/Vol] 228 mg/dL High 60-105 [facility] Comment on above: Order Comment: Speci men Type: ARTERIAL BLOOD SPECIMENOrdering Facility: [facility] Address: [address] [place] [address] Performed By: #### A LLBG ####[facility] LABCLIA [id number] [place] [address] [place] HCO3 (Bld) [Moles/Vol] 27 mmol/L High 22-[address] [facility] Comment on above: Order Comment: Speci men Type: ARTERIAL BLOOD SPECIMENOrdering Facility: [facility] Address: [address] [place] [address] Performed By: #### A LLBG ####[facility] LABCLIA [id number] [place] [address] [place] Hematocrit (Bld) [Volume fraction] 34.4 % Low 39.0-51.0 [facility] Comment on above: Order Comment: Speci men Type: ARTERIAL BLOOD SPECIMENOrdering Facility: [facility] Address: [address] [place] [address] Performed By: #### A LLBG ####[facility] LABIA [id number] [place] [address] [place] Hemoglobin (Bld) [Mass/Vol] 11.2 g/dL Low 13.0-17.0 [facility] Comment on above: Order Comment: Speci men Type: ARTERIAL BLOOD SPECIMENOrdering Facility: [facility] Address: [address] [place] [address] Performed By: #### A LLBG ####[facility] LABIA [id number] [place] [address] [place] Lactate [Moles/Vol] 1.2 mmol/L Normal 0.5-2.2 [facility] Comment on above: Order Comment: Speci men Type: ARTERIAL BLOOD SPECIMENOrdering Facility: [facility] Address: [address] [place] [address] Performed By: #### A LLBG ####[facility] LABIA [id number] [place] [address] [place] Methemoglobin (Bld) [Mass fraction] 1.3 % Normal 0.0-1.5 [facility] Comment on above: Order Comment: Speci men Type: ARTERIAL BLOOD SPECIMENOrdering Facility: [facility] Address: [address] [place] [address] Performed By: #### A LLBG ####[facility] LABIA [id number] [place] [address] [place] O2 THERAPY RA=Room Air Normal [facility] Comment on above: Order Comment: Speci men Type: ARTERIAL BLOOD SPECIMENOrdering Facility: [facility] Address: [address] [place] [address] Performed By: #### A LLBG ####[facility] LABCLIA [id number] [place] [id number] [place] Oxygen (Bld) [Partial pressure] 69 mm Hg Low 85-95 [facility] Comment on above: Order Comment: Speci men Type: ARTERIAL BLOOD SPECIMENOrdering Facility: [facility] Address: [address] [place] [address] Performed By: #### A LLBG ####[facility] LABCLIA [id number] [place] [address] [place] Oxyhemoglobin (BldA) [Mass fraction] 90 % Low 95-98 [facility] Comment on above: Order Comment: Speci men Type: ARTERIAL BLOOD SPECIMENOrdering Facility: [facility] Address: [address] [place] [address] Performed By: #### A LLBG ####[facility] LABCLIA [id number] [place] [id number] [place] pH (Bld) 7.38 [pH] Normal 7.35-7.45 [facility] Comment on above: Order Comment: Speci men Type: ARTERIAL BLOOD SPECIMENOrdering Facility: [facility] Address: [address] [place] [address] Performed By: #### A LLBG ####[facility] LABCLIA [id number] [place] [id number] [place] PO2 / FIO2 RATIO 329 mmHg Normal >300 [facility] Comment on above: Order Comment: Speci men Type: ARTERIAL BLOOD SPECIMENOrdering Facility: [facility] Address: [address] [place] [address] Performed By: #### A LLBG ####[facility] LABCLIA [id number] [place] [id number] [place] Potassium [Moles/Vol] 5.1 mmol/L High 3.5-5.0 [facility] Comment on above: Order Comment: Speci men Type: ARTERIAL BLOOD SPECIMENOrdering Facility: [facility] Address: [address] [facility] [address] Performed By: #### A LLBG ####[facility] LABCLIA [id number] [address] [address] [place] Sodium [Moles/Vol] 130 mmol/L Low 136-144 [facility] Comment on above: Order Comment: Speci men Type: ARTERIAL BLOOD SPECIMENOrdering Facility: [facility] Address: [address] [place] [id number] Performed By: #### A LLBG ####[facility] LABCLIA [id number] [address] [address] [place] Basic Metabolic Profile (BMP )on 11-25-2024 BUN Normal 4-19 [facility] Comment on above: Result Comment: Canc elled via OM: MD Ordered Performed By: #### L 500.2500, L100.0100 ####[facility] [address] [place], [address] BUN/CRE Normal 10-20 [facility] Comment on above: Result Comment: Canc elled via OM: MD Ordered Performed By: #### L 500.2500, L100.0100 ####[facility] [address] [place], [address] Calcium Normal 7.6-11.0 [facility] Comment on above: Result Comment: Canc elled via OM: MD Ordered Performed By: #### L 500.2500, L100.0100 ####[facility] [address] [place], [address] CL Normal 98-108 [facility] Comment on above: Result Comment: Canc elled via OM: MD Ordered Performed By: #### L 500.2500, L100.0100 ####[facility] [address] [place], [address] CO2 Normal 21.0-32.0 [facility] Comment on above: Result Comment: Canc elled via OM: MD Ordered Performed By: #### L 500.2500, L100.0100 ####[facility] [address] [place], [address] CREAT,SERUM Normal 0.70-1.20 [facility] Comment on above: Result Comment: Canc elled via OM: MD Ordered Performed By: #### L 500.2500, L100.0100 ####[facility] [address] [place], [address] eGFR Normal >60 [facility] Comment on above: Result Comment: Canc elled via OM: MD Ordered Performed By: #### L 500.2500, L100.0100 ####[facility] [address] [place], [address] GAP Normal 5-15 [facility] Comment on above: Result Comment: Canc elled via OM: MD Ordered Performed By: #### L 500.2500, L100.0100 ####[facility] [address] [place], [address] GLU Normal 70-99 [facility] Comment on above: Result Comment: Canc elled via OM: MD Ordered Performed By: #### L 500.2500, L100.0100 ####[facility] [address] [place], [address] Potassium Normal 3.3-5.1 [facility] Comment on above: Result Comment: Canc elled via OM: MD Ordered Performed By: #### L 500.2500, L100.0100 ####[facility] [address] [place], [address] Basic Metabolic Profile (BMP) Normal 133-145 [facility] Comment on above: Result Comment: Canc elled via OM: MD Ordered Performed By: #### L 500.2500, L100.0100 ####[facility] [address] [place], [address] Basic metabolic 2000 panelon 11-25-2024 Anion gap [Moles/Vol] 18 mmol/L High 8-15 [facility] Comment on above: Order Comment: Speci men Type: BLOOD SPECIMENOrdering Facility: [facility] Address: [address] [place] [address] Performed By: #### 1 9123-9, 277-, 68026-8 ####[facility] LABCLIA [id number] [place] [id number] [place] Calcium [Mass/Vol] 8.9 mg/dL Normal 8.5-10.2 [facility] Comment on above: Order Comment: Speci men Type: BLOOD SPECIMENOrdering Facility: [facility] Address: [address] [place] [address] Performed By: #### 1 9123-9, 27711-20, 95022-6 ####[facility] LABCLIA [id number] [place] [id number] [place] Chloride [Moles/Vol] 90 mmol/L Low 98-107 [facility] Comment on above: Order Comment: Speci men Type: BLOOD SPECIMENOrdering Facility: [facility] Address: [address] [place] [address] Performed By: #### 1 9123-9, 27711-20, 62851-7 ####[facility] LABCLIA [id number] [address] [address] [place] CO2 [Moles/Vol] 23 mmol/L Normal 22-30 [facility] Comment on above: Order Comment: Speci men Type: BLOOD SPECIMENOrdering Facility: [facility] Address: [address] [place], [place] [address] Performed By: #### 1 9123-9, 2777-1, 51026-9 ####[facility] LABCLIA [id number] [address] [address] [place] Creatinine [Mass/Vol] 6.58 mg/dL High 0.73-1.22 [facility] Comment on above: Order Comment: Lesvia aleman Type: BLOOD SPECIMENOrdering Facility: [facility] Address: [address] [place] [address] Performed By: #### 1 9123-9, 2777-1, 81842-7 ####[facility] [id number] [place] [address] [place] Creatinine and Glomerular filtration rate.predicted panel (S/P/Bld) 8 mL/min/1.73m??? Low >=60 [facility] Comment on above: Order Comment: Lesvia aleman Type: BLOOD SPECIMENOrdering Facility: [facility] Address: [address] [place] [address] Result Comment: Tessa mated Glomerular Filtration Rate [...] GFR. Performed By: #### 1 9123-9, 2777-, 62751-9 ####[facility] [id number] [place] [id number] [place] Glucose [Mass/Vol] 75 mg/dL Normal 74-99 [facility] Comment on above: Order Comment: Lesvia ash Type: BLOOD SPECIMENOrdering Facility: [facility] Address: [address] [place] [address] Result Comment: The [place] [employer] Association (ADA) provides guidance for cutoff [...] Standards of Medical Care in Diabetes 2016, [place] [employer]. Diabetes Care. 2016.39(Suppl 1). Performed By: #### 1 9123-9, 2777-, 56686-0 ####[facility] LABCLIA [id number] [place] [address] [place] Potassium [Moles/Vol] 5.2 mmol/L High 3.7-5.1 [facility] Comment on above: Order Comment: Ruddyi ash Type: BLOOD SPECIMENOrdering Facility: [facility] Address: [address] [place] [address] Performed By: #### 1 9123-9, 2776-05, 76703-6 ####[facility] LABCLIA [id number] [place] [id number] [place] Sodium [Moles/Vol] 131 mmol/L Low 136-144 [facility] Comment on above: Order Comment: Lesvia aleman Type: BLOOD SPECIMENOrdering Facility: [facility] Address: [address] [place] [address] Performed By: #### 1 9123-9, 27711-20, 82246-1 ####[facility] LABCLIA [id number] [place] [id number] [place] Urea nitrogen [Mass/Vol] 88 mg/dL High 9-24 [facility] Comment on above: Order Comment: Ruddyi men Type: BLOOD SPECIMENOrdering Facility: [facility] Address: [address] [place] [address] Performed By: #### 1 9123-9, 27711-20, 69342-2 ####[facility] LABCLIA [id number] [address] [address] [place] Anion gap [Moles/Vol] 19 mmol/L High 8-15 [facility] Comment on above: Order Comment: Speci men Type: BLOOD SPECIMENOrdering Facility: [facility] Address: [address] [place] [address] Performed By: #### 2 4321-2 ####[facility] LABCLIA [id number] [facility]ENUED[facility]K [address] [place] [address] [place] Calcium [Mass/Vol] 8.9 mg/dL Normal 8.5-10.2 [facility] Comment on above: Order Comment: Speci men Type: BLOOD SPECIMENOrdering Facility: [facility] Address: [address] [place] [address] Performed By: #### 2 4321-2 ####[facility] LABCLIA [id number] [facility]SK [address] [place] [address] [place] Chloride [Moles/Vol] 89 mmol/L Low 98-107 [facility] Comment on above: Order Comment: Speci men Type: BLOOD SPECIMENOrdering Facility: [facility] Address: [address] [place] [address] Performed By: #### 2 4321-2 ####[facility] LABCLIA [id number] [facility]AD[facility] MED[facility] CENTERK [address] [place] [address] [place] CO2 [Moles/Vol] 22 mmol/L Normal 22-30 [facility] Comment on above: Order Comment: Speci men Type: BLOOD SPECIMENOrdering Facility: [facility] Address: [address] [place] [address] Performed By: #### 2 4321-2 ####[facility] LABCL[facility] [id number] [facility] [address] [address] [place] Creatinine [Mass/Vol] 6.20 mg/dL High 0.73-1.22 [facility] Comment on above: Order Comment: Speci men Type: BLOOD SPECIMENOrdering Facility: [facility] Address: [address] [place] [address] Performed By: #### 2 4321-2 ####[facility] LABCLIA [id number] [facility] [place] [id number] [place] Creatinine and Glomerular filtration rate.predicted panel (S/P/Bld) 8 mL/min/1.73m??? Low >=60 [facility] Comment on above: Order Comment: Speci men Type: BLOOD SPECIMENOrdering Facility: [facility] Address: [address] [place] [address] Result Comment: Tessa mated Glomerular Filtration Rate [...] actual GFR. Performed By: #### 2 4321-2 ####[facility] LABCLIA [id number] [place] [address] [place] Potassium [Moles/Vol] 5.5 mmol/L High 3.7-5.1 [facility] Comment on above: Order Comment: Speci men Type: BLOOD SPECIMENOrdering Facility: [facility] Address: [address] [place] [address] Performed By: #### 2 4321-2 ####[facility] LABCLIA [id number] [place] [id number] [place] Sodium [Moles/Vol] 130 mmol/L Low 136-144 [facility] Comment on above: Order Comment: Speci men Type: BLOOD SPECIMENOrdering Facility: [facility] Address: [address] [place] [address] Performed By: #### 2 4321-2 ####[facility] LABIA [id number] [place] [id number] [place] Urea nitrogen [Mass/Vol] 83 mg/dL High 9-24 [facility] Comment on above: Order Comment: Speci men Type: BLOOD SPECIMENOrdering Facility: [facility] Address: [address] [facility] [place] [address] Performed By: #### 2 4321-2 ####[facility] LABCLIA [id number] DEREK STEINER [id number] [place] [address] [place] CBC W/Diff, Automatedon 07-0 -2024 Absolute Neut Normal 2.0-7.7 [facility] Comment on above: Result Comment: Canc elled via OM: MD Ordered Performed By: #### L 500.2500, L100.0100 ####[facility] [address] [place], [address] HCT Normal 40-54 [facility] Comment on above: Result Comment: Canc elled via OM: MD Ordered Performed By: #### L 500.2500, L100.0100 ####[facility] [address] [place], [address] HGB Normal 13.0-16.5 [facility] Comment on above: Result Comment: Canc elled via OM: MD Ordered Performed By: #### L 500.2500, L100.0100 ####[facility] [address] [place], [address] MCH Normal 27.0-32.0 [facility] Comment on above: Result Comment: Canc elled via OM: MD Ordered Performed By: #### L 500.2500, L100.0100 ####[facility] [address] [place], [address] MCHC Normal 32-36 [facility] Comment on above: Result Comment: Canc elled via OM: MD Ordered Performed By: #### L 500.2500, L100.0100 ####[facility] [address] [place], [address] MCV Normal 80-94 [facility] Comment on above: Result Comment: Canc elled via OM: MD Ordered Performed By: #### L 500.2500, L100.0100 ####[facility] [address] [place], [address] NEUT% Normal 47-70 [facility] Comment on above: Result Comment: Canc elled via OM: MD Ordered Performed By: #### L 500.2500, L100.0100 ####[facility] [address] [place], [address] PLT Normal 150-450 [facility] Comment on above: Result Comment: Canc elled via OM: MD Ordered Performed By: #### L 500.2500, L100.0100 ####[facility] [address] [place], [address] RBC Normal 4.6-6.2 [facility] Comment on above: Result Comment: Canc elled via OM: MD Ordered Performed By: #### L 500.2500, L100.0100 ####[facility] [address] [place], [address] RDW CV Normal 11.6-14.6 [facility] Comment on above: Result Comment: Canc elled via OM: MD Ordered Performed By: #### L 500.2500, L100.0100 ####[facility] [address] [place], [address] RDW SD Normal 35.1-43.9 [facility] Comment on above: Result Comment: Canc elled via OM: MD Ordered Performed By: #### L 500.2500, L100.0100 ####[facility] [address] [place], [address] WBC Normal 4.4-11.0 [facility] Comment on above: Result Comment: Canc elled via OM: MD Ordered Performed By: #### L 500.2500, L100.0100 ####[facility] [address] [place], [address] CBC panel Auto (Bld)on 11-25 Erythrocyte distribution width (RBC) [Ratio] 16.2 % High 11.5-15.0 [facility] Comment on above: Order Comment: Speci men Type: BLOOD SPECIMENOrdering Facility: [facility] Address: [address] [place] [address] Performed By: #### 5 8410-2 ####[facility] LABIA [id number] [place] [address] [place] Hematocrit (Bld) [Volume fraction] 34.0 % Low 39.0-51.0 [facility] Comment on above: Order Comment: Speci men Type: BLOOD SPECIMENOrdering Facility: [facility] Address: [address] [place] [address] Performed By: #### 5 8410-2 ####[facility] LABIA [id number] [place] [address] [place] Hemoglobin (Bld) [Mass/Vol] 10.6 g/dL Low 13.0-17.0 [facility] Comment on above: Order Comment: Speci men Type: BLOOD SPECIMENOrdering Facility: [facility] Address: [address] [place] [address] Performed By: #### 5 8410-2 ####[facility] [id number] [place] [address] [place] MCH (RBC) [Entitic mass] 27.8 pg Normal 26.0-34.0 [facility] Comment on above: Order Comment: Speci men Type: BLOOD SPECIMENOrdering Facility: [facility] Address: [address] [place] [address] Performed By: #### 5 8410-2 ####[facility] [id number] [place] [id number] [place] MCHC (RBC) [Mass/Vol] 31.2 g/dL Normal 30.5-36.0 [facility] Comment on above: Order Comment: Speci men Type: BLOOD SPECIMENOrdering Facility: [facility] Address: [address] [place] [address] Performed By: #### 5 8410-2 ####[facility] [id number] [place] [id number] [place] MCV (RBC) [Entitic vol] 89.2 fL Normal 80.0-100.0 C [facility] Comment on above: Order Comment: Speci men Type: BLOOD SPECIMENOrdering Facility: [facility] Address: [address] [place] [address] Performed By: #### 5 8410-2 ####[facility] [id number] [place] [address] [place] Nucleated RBC (Bld) [#/Vol] 10*3/uL Normal <0.01 [facility] Comment on above: Order Comment: Speci men Type: BLOOD SPECIMENOrdering Facility: [facility] Address: [address] [place] [address] Performed By: #### 5 8410-2 ####[facility] [id number] [place] [address] [place] Platelet mean volume (Bld) [Entitic vol] 11.8 fL Normal 9.0-12.7 [facility] Comment on above: Order Comment: Speci men Type: BLOOD SPECIMENOrdering Facility: [facility] Address: [address] [place] [address] Performed By: #### 5 8410-2 ####[facility] [id number] [place] [address] [place] Platelets (Bld) [#/Vol] 142 10*3/uL Low 150-400 [facility] Comment on above: Order Comment: Speci men Type: BLOOD SPECIMENOrdering Facility: [facility] Address: [address] [place] [address] Performed By: #### 5 8410-2 ####[facility] [id number] [place] [id number] [place] RBC (Bld) [#/Vol] 3.81 10*6/uL Low 4.20-6.00 [facility] Comment on above: Order Comment: Speci men Type: BLOOD SPECIMENOrdering Facility: [facility] Address: [address] [place] [address] Performed By: #### 5 8410-2 ####[facility] [id number] [place] [address] [place] WBC (Bld) [#/Vol] 8.99 10*3/uL Normal 3.70-11.00 [facility] Comment on above: Order Comment: Speci men Type: BLOOD SPECIMENOrdering Facility: [facility] Address: [address] [place] [address] Performed By: #### 5 8410-2 ####[facility] [id number] [place] [id number] [place] CONSULT PROGon 11-25-2024 CONSULT PROG Normal [facility] Comprehensive metabolic 2000 panelon 11-25-2024 Albumin [Mass/Vol] 3.5 g/dL Low 3.9-4.9 [facility] Comment on above: Order Comment: Speci men Type: BLOOD SPECIMENOrdering Facility: [facility] Address: [address] [place] [address] Performed By: #### 1 9123-9, 59565-6 ####[facility] [id number] [place] [address] [place] ALP [Catalytic activity/Vol] 66 U/L Normal 38-113 [facility] Comment on above: Order Comment: Speci men Type: BLOOD SPECIMENOrdering Facility: [facility] Address: [address] [place] [address] Performed By: #### 1 9123-9, 01273-4 ####[facility]CL[facility] [id number] [facility] [address] [place] [address] [place] ALT [Catalytic activity/Vol] 37 U/L Normal 10-54 [facility] Comment on above: Order Comment: Speci men Type: BLOOD SPECIMENOrdering Facility: [facility] Address: [address] [place] [address] Performed By: #### 1 23-9, 74666-7 ####[facility]CL[facility] [id number] [facility] [address] [place] [address] [place] Anion gap [Moles/Vol] 19 mmol/L High 8-15 [facility] Comment on above: Order Comment: Speci men Type: BLOOD SPECIMENOrdering Facility: [facility] Address: [address] [place] [address] Performed By: #### 1 23-9, 92184-0 ####[facility] [id number] [facility] [address] [place] [address] [place] AST [Catalytic activity/Vol] 21 U/L Normal 14-40 [facility] Comment on above: Order Comment: Speci men Type: BLOOD SPECIMENOrdering Facility: [facility] Address: [address] [place], [place] [address] Performed By: #### 1 23-9, 37874-4 ####[facility] [id number] [facility] [address] [place] [address] [place] Bilirubin [Mass/Vol] 0.2 mg/dL Normal 0.2-1.3 [facility] Comment on above: Order Comment: Speci men Type: BLOOD SPECIMENOrdering Facility: [facility] Address: [address] [place], [place] [address] Performed By: #### 1 9123-9, 95133-5 ####[facility]CL[facility] [id number] [address] [place] [address] [place] Calcium [Mass/Vol] 8.9 mg/dL Normal 8.5-10.2 [facility] Comment on above: Order Comment: Speci men Type: BLOOD SPECIMENOrdering Facility: [facility] Address: [address] [place], [place] [address] Performed By: #### 1 9123-9, 41749-2 ####[facility] [id number] [facility] [address] [place] [address] [place] Chloride [Moles/Vol] 90 mmol/L Low 98-107 [facility] Comment on above: Order Comment: Speci men Type: BLOOD SPECIMENOrdering Facility: [facility] Address: [address] [place] [address] Performed By: #### 1 9123-9, 61216-7 ####[facility] [id number] [facility] [place] [address] [place] CO2 [Moles/Vol] 23 mmol/L Normal 22-30 [facility] Comment on above: Order Comment: Speci men Type: BLOOD SPECIMENOrdering Facility: [facility] Address: [address] [place] [address] Performed By: #### 1 9123-9, 61645-3 ####[facility] [id number] [facility] [address], [facility] [place] Creatinine [Mass/Vol] 6.00 mg/dL High 0.73-1.22 [facility] Comment on above: Order Comment: Speci men Type: BLOOD SPECIMENOrdering Facility: [facility] Address: [address] [place] [address] Performed By: #### 1 9123-9, 32348-6 ####[facility] [id number] [facility] [address] [place] [address] [place] Creatinine and Glomerular filtration rate.predicted panel (S/P/Bld) 8 mL/min/1.73m??? Low >=60 [facility] Comment on above: Order Comment: Lesvia aleman Type: BLOOD SPECIMENOrdering Facility: [facility] Address: [address] [place] [address] Result Comment: Tessa mated Glomerular Filtration Rate [...] actual GFR. Performed By: #### 1 9123-9, 24069-3 ####[facility] [id number] [place] [address] [place] Glucose [Mass/Vol] 227 mg/dL High 74-99 [facility] Comment on above: Order Comment: Lesvia aleman Type: BLOOD SPECIMENOrdering Facility: [facility] Address: [address] [place] [address] Result Comment: The [place] [employer] Association (ADA) provides guidance for cutoff [...] Standards of Medical Care in Diabetes 2016, [place] [employer]. Diabetes Care. 2016.39(Suppl 1). Performed By: #### 1 9123-9, 95646-3 ####[facility] [id number] [place] [id number] [place] Potassium [Moles/Vol] 5.3 mmol/L High 3.7-5.1 [facility] Comment on above: Order Comment: Lesvia aleman Type: BLOOD SPECIMENOrdering Facility: [facility] Address: [address] [place] [address] Performed By: #### 1 9123-9, 73583-3 ####[facility] [id number] [address] [address] [place] Protein [Mass/Vol] 6.6 g/dL Normal 6.3-8.0 [facility] Comment on above: Order Comment: Speci men Type: BLOOD SPECIMENOrdering Facility: [facility] Address: [address] [place] [address] Performed By: #### 1 9123-9, 41425-3 ####[facility] [id number] [address] [address] [place] Sodium [Moles/Vol] 132 mmol/L Low 136-144 [facility] Comment on above: Order Comment: Speci men Type: BLOOD SPECIMENOrdering Facility: [facility] Address: [address] [place] [address] Performed By: #### 1 9123-9, 44404-2 ####[facility] [id number] [address] [address] [place] Urea nitrogen [Mass/Vol] 71 mg/dL High 9-24 [facility] Comment on above: Order Comment: Speci men Type: BLOOD SPECIMENOrdering Facility: [facility] Address: [address] [place] [address] Performed By: #### 1 9123-9, 57394-2 ####[facility] [id number] [address] [address] [place] Magnesium SerPl-mCncon 11-25 Magnesium [Mass/Vol] 2.5 mg/dL High 1.7-2.3 [facility] Comment on above: Order Comment: Speci men Type: BLOOD SPECIMENOrdering Facility: [facility] Address: [address] [place], [place] [address] Performed By: #### 1 9123-9, 2777-1, 66489-6 ####[facility] [id number] [place] [address] [place] Magnesium [Mass/Vol] 2.6 mg/dL High 1.7-2.3 [facility] Comment on above: Order Comment: Speci men Type: BLOOD SPECIMENOrdering Facility: [facility] Address: [address] [place] [address] Performed By: #### 1 9123-9, 59117-0 ####[facility] [id number] [place] [id number] [place] Phosphate SerPl-mCncon 11-25 Phosphate [Mass/Vol] 9.4 mg/dL High 2.7-4.8 [facility] Comment on above: Order Comment: Speci men Type: BLOOD SPECIMENOrdering Facility: [facility] Address: [address] [place] [address] Performed By: #### 1 9123-9, 2777-1, 25113-8 ####[facility] [id number] [place] [address] [place] XR CHEST 1V FRONTAL PORTon 0 11-25-2024 XR CHEST 1V FRONTAL PORT Normal [facility] APIXABAN ASSAYon 11-24-2024 APIXABAN 36.00 ng/mL Normal [facility] Comment on above: Order Comment: Speci men Type: BLOOD SPECIMENOrdering Facility: [facility] Address: [address] [place] [address] Result Comment: APIX ABAN PEAK AND TROUGH [...] 572 ng/mLTrough: 41 to 335 ng/mLReference: Sunday [facility] Pharmacocetrics Syst Pharmacol. 2017;6(5):340-349. Performed By: #### A PIXBN ####[facility] [id number] [place] [address] [place] ARTERIAL BLOOD GASESon 11-24 Base excess Calc (Bld) [Moles/Vol] 3 mmol/L High 0-2 [facility] Comment on above: Order Comment: Speci men Type: ARTERIAL BLOOD SPECIMENOrdering Facility: [facility] Address: [address] [place] [address] Performed By: #### A LLBG ####[facility] [id number] [address] [place] Body temperature 98.6 [degF] Normal [facility] Comment on above: Order Comment: Speci men Type: ARTERIAL BLOOD SPECIMENOrdering Facility: [facility] Address: [address] [place] [address] Performed By: #### A LLBG ####[facility] [id number] [address] [place] Calcium.ionized (Bld) [Mass/Vol] 1.11 mmol/L Normal 1.08-1.30 [facility] Comment on above: Order Comment: Speci men Type: ARTERIAL BLOOD SPECIMENOrdering Facility: [facility] Address: [address] [place] [address] Performed By: #### A LLBG ####[facility] [id number] [place] [address] [place] Calcium.ionized adjusted to pH 7.4 (BldA) [Moles/Vol] 1.11 mmol/L Normal 1.08-1.30 [facility] Comment on above: Order Comment: Speci men Type: ARTERIAL BLOOD SPECIMENOrdering Facility: [facility] Address: [address] [place] [address] Performed By: #### A LLBG ####[facility] [id number] [place] [address] [place] Carboxyhemoglobin (BldA) [Mass fraction] 1.2 % Normal 0.0-2.0 [facility] Comment on above: Order Comment: Speci men Type: ARTERIAL BLOOD SPECIMENOrdering Facility: [facility] Address: [address] [place] [address] Result Comment: Carb oxyhemoglobin Reference Range for Smokers: 2.0-8.0% Performed By: #### A LLBG ####[facility] [id number] [place] [address] [place] CO2 (Bld) [Partial pressure] 45 mm Hg Normal 36-46 [facility] Comment on above: Order Comment: Speci men Type: ARTERIAL BLOOD SPECIMENOrdering Facility: [facility] Address: [address] [place] [address] Performed By: #### A LLBG ####[facility] [id number] [place] [address] [place] Glucose [Mass/Vol] 182 mg/dL High 60-105 [facility] Comment on above: Order Comment: Speci men Type: ARTERIAL BLOOD SPECIMENOrdering Facility: [facility] Address: [address] [place] [address] Performed By: #### A LLBG ####[facility] [id number] [place] [address] [place] HCO3 (Bld) [Moles/Vol] 27 mmol/L High 22-[address] [facility] Comment on above: Order Comment: Speci men Type: ARTERIAL BLOOD SPECIMENOrdering Facility: [facility] Address: [address] [place] [address] Performed By: #### A LLBG ####[facility] [id number] [address] [address] [place] Hematocrit (Bld) [Volume fraction] 34.6 % Low 39.0-51.0 [facility] Comment on above: Order Comment: Speci men Type: ARTERIAL BLOOD SPECIMENOrdering Facility: [facility] Address: [address] [place] [address] Performed By: #### A LLBG ####[facility] [id number] [place] [address] [place] Hemoglobin (Bld) [Mass/Vol] 11.2 g/dL Low 13.0-17.0 [facility] Comment on above: Order Comment: Speci men Type: ARTERIAL BLOOD SPECIMENOrdering Facility: [facility] Address: [address] [place] [address] Performed By: #### A LLBG ####[facility] [id number] [place] [address] [place] Lactate [Moles/Vol] 1.1 mmol/L Normal 0.5-2.2 [facility] Comment on above: Order Comment: Speci men Type: ARTERIAL BLOOD SPECIMENOrdering Facility: [facility] Address: [address] [place] [address] Performed By: #### A LLBG ####[facility] [id number] [place] [address] [place] Methemoglobin (Bld) [Mass fraction] 1.3 % Normal 0.0-1.5 [facility] Comment on above: Order Comment: Speci men Type: ARTERIAL BLOOD SPECIMENOrdering Facility: [facility] Address: [address] [place] [address] Performed By: #### A LLBG ####[facility] [id number] [place] [address] [place] O2 THERAPY RA=Room Air Normal [facility] Comment on above: Order Comment: Speci men Type: ARTERIAL BLOOD SPECIMENOrdering Facility: [facility] Address: [address] [place] [address] Performed By: #### A LLBG ####[facility] [id number] [place] [id number] [place] Oxygen (Bld) [Partial pressure] 78 mm Hg Low 85-95 [facility] Comment on above: Order Comment: Speci men Type: ARTERIAL BLOOD SPECIMENOrdering Facility: [facility] Address: [address] [place] [address] Performed By: #### A LLBG ####[facility] [id number] [address] [place] Oxyhemoglobin (BldA) [Mass fraction] 92 % Low 95-98 [facility] Comment on above: Order Comment: Speci men Type: ARTERIAL BLOOD SPECIMENOrdering Facility: [facility] Address: [address] [place] [address] Performed By: #### A LLBG ####[facility] [id number] [place] [address] [place] pH (Bld) 7.40 [pH] Normal 7.35-7.45 [facility] Comment on above: Order Comment: Speci men Type: ARTERIAL BLOOD SPECIMENOrdering Facility: [facility] Address: [address] [place] [address] Performed By: #### A LLBG ####[facility] [id number] [place] [id number] [place] PO2 / FIO2 RATIO 371 mmHg Normal >300 [facility] Comment on above: Order Comment: Speci men Type: ARTERIAL BLOOD SPECIMENOrdering Facility: [facility] Address: [address] [place] [address] Performed By: #### A LLBG ####[facility] [id number] [place] [address] [place] Potassium [Moles/Vol] 5.0 mmol/L Normal 3.5-5.0 [facility] Comment on above: Order Comment: Speci men Type: ARTERIAL BLOOD SPECIMENOrdering Facility: [facility] Address: [address] [place] [address] Performed By: #### A LLBG ####[facility] [id number] [place] [address] [place] Sodium [Moles/Vol] 132 mmol/L Low 136-144 [facility] Comment on above: Order Comment: Speci men Type: ARTERIAL BLOOD SPECIMENOrdering Facility: [facility] Address: [address] [place] [address] Performed By: #### A LLBG ####[facility] [id number] [place] [address] [place] Base excess Calc (Bld) [Moles/Vol] 5 mmol/L High 0-2 [facility] Comment on above: Order Comment: Speci men Type: ARTERIAL BLOOD SPECIMENOrdering Facility: [facility] Address: [address] [place] [address] Performed By: #### A LLBG ####[facility] [id number] [place] [id number] [place] Body temperature 98.24 [degF] Normal [facility] Comment on above: Order Comment: Speci men Type: ARTERIAL BLOOD SPECIMENOrdering Facility: [facility] Address: [address] [place] [address] Performed By: #### A LLBG ####[facility] [id number] [address] [place] Calcium.ionized (Bld) [Mass/Vol] 1.13 mmol/L Normal 1.08-1.30 [facility] Comment on above: Order Comment: Speci men Type: ARTERIAL BLOOD SPECIMENOrdering Facility: [facility] Address: [address] [place] [address] Performed By: #### A LLBG ####[facility] [id number] [address] [place] Calcium.ionized adjusted to pH 7.4 (BldA) [Moles/Vol] 1.15 mmol/L Normal 1.08-1.30 [facility] Comment on above: Order Comment: Speci men Type: ARTERIAL BLOOD SPECIMENOrdering Facility: [facility] Address: [address] [place] [address] Performed By: #### A LLBG ####[facility] [id number] [address] [place] [facility] Carboxyhemoglobin (BldA) [Mass fraction] 0.6 % Normal 0.0-2.0 [facility] Comment on above: Order Comment: Speci men Type: ARTERIAL BLOOD SPECIMENOrdering Facility: [facility] Address: [address] [place] [address] Result Comment: Carb oxyhemoglobin Reference Range for Smokers: 2.0-8.0% Performed By: #### A LLBG ####[facility] [id number] [address] [place] CO2 (Bld) [Partial pressure] 45 mm Hg Normal 36-46 [facility] Comment on above: Order Comment: Speci men Type: ARTERIAL BLOOD SPECIMENOrdering Facility: [facility] Address: [address] [place] [address] Performed By: #### A LLBG ####[facility] [id number] [place] [address] [place] CO2 adjusted to patient's actual temperature (Bld) [Partial pressure] 44 mmHg Normal 36-46 [facility] Comment on above: Order Comment: Speci men Type: ARTERIAL BLOOD SPECIMENOrdering Facility: [facility] Address: [facility] [place] [address] Performed By: #### A LLBG ####[facility] [id number] [place] [id number] [place] Glucose [Mass/Vol] 73 mg/dL Normal 60-105 [facility] Comment on above: Order Comment: Speci men Type: ARTERIAL BLOOD SPECIMENOrdering Facility: [facility] Address: [address] [place] [address] Performed By: #### A LLBG ####[facility] [id number] [place] [id number] [place] HCO3 (Bld) [Moles/Vol] 29 mmol/L High 22-[address] [facility] Comment on above: Order Comment: Speci men Type: ARTERIAL BLOOD SPECIMENOrdering Facility: [facility] Address: [address] [place] [address] Performed By: #### A LLBG ####[facility] [id number] [place] [address] [place] Hematocrit (Bld) [Volume fraction] 34.8 % Low 39.0-51.0 [facility] Comment on above: Order Comment: Speci men Type: ARTERIAL BLOOD SPECIMENOrdering Facility: [facility] Address: [address] [place] [address] Performed By: #### A LLBG ####[facility] [id number] [place] [id number] [place] Hemoglobin (Bld) [Mass/Vol] 11.3 g/dL Low 13.0-17.0 [facility] Comment on above: Order Comment: Speci men Type: ARTERIAL BLOOD SPECIMENOrdering Facility: [facility] Address: [address], [place] [address] Performed By: #### A LLBG ####[facility] [id number] [address] [address] [place] Lactate [Moles/Vol] 0.9 mmol/L Normal 0.5-2.2 [facility] Comment on above: Order Comment: Speci men Type: ARTERIAL BLOOD SPECIMENOrdering Facility: [facility] Address: [address] [place] [address] Performed By: #### A LLBG ####[facility] LABCLIA [id number] [place] [id number] [place] Methemoglobin (Bld) [Mass fraction] 0.5 % Normal 0.0-1.5 [facility] Comment on above: Order Comment: Speci men Type: ARTERIAL BLOOD SPECIMENOrdering Facility: [facility] Address: [address] [place] [address] Performed By: #### A LLBG ####[facility] LABCLIA [id number] [place] [id number] [place] O2 THERAPY RA=Room Air Normal [facility] Comment on above: Order Comment: Speci men Type: ARTERIAL BLOOD SPECIMENOrdering Facility: [facility] Address: [address] [place], [place] [id number] Performed By: #### A LLBG ####[facility] LABCLIA [id number] [address] [address] [place] Oxygen (Bld) [Partial pressure] 98 mm Hg High 85-95 [facility] Comment on above: Order Comment: Speci men Type: ARTERIAL BLOOD SPECIMENOrdering Facility: [facility] Address: [address] [place], [place] [id number] Performed By: #### A LLBG ####[facility] LABCLIA [id number] [address] [address] [place] Oxygen adjusted to patient's actual temperature (Bld) [Partial pressure] 97 mmHg High 85-95 [facility] Comment on above: Order Comment: Speci men Type: ARTERIAL BLOOD SPECIMENOrdering Facility: [facility] Address: [address] [place] [address] Performed By: #### A LLBG ####[facility] LABCLIA [id number] [address] [address] [place] Oxyhemoglobin (BldA) [Mass fraction] 95 % Normal 95-98 [facility] Comment on above: Order Comment: Speci men Type: ARTERIAL BLOOD SPECIMENOrdering Facility: [facility] Address: [address] [place] [address] Performed By: #### A LLBG ####[facility] LABCLIA [id number] [place] [id number] [place] pH (Bld) 7.43 [pH] Normal 7.35-7.45 [facility] Comment on above: Order Comment: Speci men Type: ARTERIAL BLOOD SPECIMENOrdering Facility: [facility] Address: [address] [place] [address] Performed By: #### A LLBG ####[facility] LABCLIA [id number] [place] [id number] [place] pH adjusted to patient's actual temperature (Bld) 7.44 Normal 7.35-7.45 [facility] Comment on above: Order Comment: Speci men Type: ARTERIAL BLOOD SPECIMENOrdering Facility: [facility] Address: [address] [place] [address] Performed By: #### A LLBG ####[facility] LABCLIA [id number] [place] [id number] [place] PO2 / FIO2 RATIO 467 mmHg Normal >300 [facility] Comment on above: Order Comment: Speci men Type: ARTERIAL BLOOD SPECIMENOrdering Facility: [facility] Address: [address] [place], [place] [id number] Performed By: #### A LLBG ####[facility] LABCLIA [id number] [place] [id number] [place] Potassium [Moles/Vol] 4.5 mmol/L Normal 3.5-5.0 [facility] Comment on above: Order Comment: Speci men Type: ARTERIAL BLOOD SPECIMENOrdering Facility: [facility] Address: [address] [place] [address] Performed By: #### A LLBG ####[facility] LABCLIA [id number] [place] [address] [place] Sodium [Moles/Vol] 135 mmol/L Low 136-144 [facility] Comment on above: Order Comment: Speci men Type: ARTERIAL BLOOD SPECIMENOrdering Facility: [facility] Address: [address] [place] [address] Performed By: #### A LLBG ####[facility] LABCLIA [id number] [place] [address] [place] Base excess Calc (Bld) [Moles/Vol] 4 mmol/L High 0-2 [facility] Comment on above: Order Comment: Speci men Type: ARTERIAL BLOOD SPECIMENOrdering Facility: [facility] Address: [address] [place] [address] Performed By: #### A LLBG ####[facility] LABIA [id number] [place] [address] [place] Body temperature 98.6 [degF] Normal [facility] Comment on above: Order Comment: Speci men Type: ARTERIAL BLOOD SPECIMENOrdering Facility: [facility] Address: [address] [place] [address] Performed By: #### A LLBG ####[facility] LABIA [id number] [place] [address] [place] Calcium.ionized (Bld) [Mass/Vol] 1.12 mmol/L Normal 1.08-1.30 [facility] Comment on above: Order Comment: Speci men Type: ARTERIAL BLOOD SPECIMENOrdering Facility: [facility] Address: [address] [place] [address] Performed By: #### A LLBG ####[facility] LABIA [id number] [place] [address] [place] Calcium.ionized adjusted to pH 7.4 (BldA) [Moles/Vol] 1.15 mmol/L Normal 1.08-1.30 [facility] Comment on above: Order Comment: Speci men Type: ARTERIAL BLOOD SPECIMENOrdering Facility: [facility] Address: [address] [place] [address] Performed By: #### A LLBG ####[facility] LABIA [id number] [place] [address] [place] Carboxyhemoglobin (BldA) [Mass fraction] 1.0 % Normal 0.0-2.0 [facility] Comment on above: Order Comment: Speci men Type: ARTERIAL BLOOD SPECIMENOrdering Facility: [facility] Address: [address] [place] [address] Result Comment: Carb oxyhemoglobin Reference Range for Smokers: 2.0-8.0% Performed By: #### A LLBG ####[facility] LABIA [id number] [place] [address] [place] CO2 (Bld) [Partial pressure] 43 mm Hg Normal 36-46 [facility] Comment on above: Order Comment: Speci men Type: ARTERIAL BLOOD SPECIMENOrdering Facility: [facility] Address: [address] [place] [address] Performed By: #### A LLBG ####[facility] LABIA [id number] [place] [id number] [place] Glucose [Mass/Vol] 83 mg/dL Normal 60-105 [facility] Comment on above: Order Comment: Speci men Type: ARTERIAL BLOOD SPECIMENOrdering Facility: [facility] Address: [address] [place] [address] Performed By: #### A LLBG ####[facility] LABCLIA [id number] [place] [address] [place] HCO3 (Bld) [Moles/Vol] 29 mmol/L High 22-[address] [facility] Comment on above: Order Comment: Speci men Type: ARTERIAL BLOOD SPECIMENOrdering Facility: [facility] Address: [address] [place] [address] Performed By: #### A LLBG ####[facility] LABCLIA [id number] [place] [address] [place] Hematocrit (Bld) [Volume fraction] 33.1 % Low 39.0-51.0 [facility] Comment on above: Order Comment: Speci men Type: ARTERIAL BLOOD SPECIMENOrdering Facility: [facility] Address: [address] [place] [address] Performed By: #### A LLBG ####[facility] LABCLIA [id number] [place] [address] [place] Hemoglobin (Bld) [Mass/Vol] 10.7 g/dL Low 13.0-17.0 [facility] Comment on above: Order Comment: Speci men Type: ARTERIAL BLOOD SPECIMENOrdering Facility: [facility] Address: [address] [place] [address] Performed By: #### A LLBG ####[facility] LABCLIA [id number] [place] [address] [place] Lactate [Moles/Vol] 0.8 mmol/L Normal 0.5-2.2 [facility] Comment on above: Order Comment: Speci men Type: ARTERIAL BLOOD SPECIMENOrdering Facility: [facility] Address: [address] [place] [address] Performed By: #### A LLBG ####[facility] LABCLIA [id number] [address] [place] [address] [place] Methemoglobin (Bld) [Mass fraction] 1.6 % High 0.0-1.5 [facility] Comment on above: Order Comment: Speci men Type: ARTERIAL BLOOD SPECIMENOrdering Facility: [facility] Address: [address] [place] [address] Performed By: #### A LLBG ####[facility] LABCLIA [id number] [place] [address] [place] O2 THERAPY RA=Room Air Normal [facility] Comment on above: Order Comment: Speci men Type: ARTERIAL BLOOD SPECIMENOrdering Facility: [facility] Address: [address] [place] [address] Performed By: #### A LLBG ####[facility] LABCLIA [id number] [place] [address] [place] Oxygen (Bld) [Partial pressure] 94 mm Hg Normal 85-95 [facility] Comment on above: Order Comment: Speci men Type: ARTERIAL BLOOD SPECIMENOrdering Facility: [facility] Address: [address] [place] [address] Performed By: #### A LLBG ####[facility] LABCLIA [id number] [place] [address] [place] Oxyhemoglobin (BldA) [Mass fraction] 94 % Low 95-98 [facility] Comment on above: Order Comment: Speci men Type: ARTERIAL BLOOD SPECIMENOrdering Facility: [facility] Address: [address] [place] [address] Performed By: #### A LLBG ####[facility] LABCLIA [id number] [place] [id number] [place] pH (Bld) 7.44 [pH] Normal 7.35-7.45 [facility] Comment on above: Order Comment: Speci men Type: ARTERIAL BLOOD SPECIMENOrdering Facility: [facility] Address: [address] [place] [address] Performed By: #### A LLBG ####[facility] LABCLIA [id number] [address] [address] [place] PO2 / FIO2 RATIO 448 mmHg Normal >300 [facility] Comment on above: Order Comment: Speci men Type: ARTERIAL BLOOD SPECIMENOrdering Facility: [facility] Address: [address] [place] [address] Performed By: #### A LLBG ####[facility] LABCLIA [id number] [place] [address] [place] Potassium [Moles/Vol] 4.3 mmol/L Normal 3.5-5.0 [facility] Comment on above: Order Comment: Speci men Type: ARTERIAL BLOOD SPECIMENOrdering Facility: [facility] Address: [address] [place] [address] Performed By: #### A LLBG ####[facility] LABCLIA [id number] [place] [address] [place] Sodium [Moles/Vol] 134 mmol/L Low 136-144 [facility] Comment on above: Order Comment: Speci men Type: ARTERIAL BLOOD SPECIMENOrdering Facility: [facility] Address: [address] [place] [address] Performed By: #### A LLBG ####[facility] LABCLIA [id number] [place] [address] [place] Base excess Calc (Bld) [Moles/Vol] 5 mmol/L High 0-2 [facility] Comment on above: Order Comment: Speci men Type: ARTERIAL BLOOD SPECIMENOrdering Facility: [facility] Address: [address] [place] [address] Performed By: #### A LLBG ####[facility] LABCLIA [id number] [place] [id number] [place] Body temperature 98.6 [degF] Normal [facility] Comment on above: Order Comment: Speci men Type: ARTERIAL BLOOD SPECIMENOrdering Facility: [facility] Address: [address] [place] [address] Performed By: #### A LLBG ####[facility] [id number] [place] [address] [place] Calcium.ionized (Bld) [Mass/Vol] 1.15 mmol/L Normal 1.08-1.30 [facility] Comment on above: Order Comment: Speci men Type: ARTERIAL BLOOD SPECIMENOrdering Facility: [facility] Address: [address] [place] [address] Performed By: #### A LLBG ####[facility] [id number] [place] [address] [place] Calcium.ionized adjusted to pH 7.4 (BldA) [Moles/Vol] 1.19 mmol/L Normal 1.08-1.30 [facility] Comment on above: Order Comment: Speci men Type: ARTERIAL BLOOD SPECIMENOrdering Facility: [facility] Address: [address] [place] [address] Performed By: #### A LLBG ####[facility] [id number] [place] [address] [place] Carboxyhemoglobin (BldA) [Mass fraction] 0.2 % Normal 0.0-2.0 [facility] Comment on above: Order Comment: Speci men Type: ARTERIAL BLOOD SPECIMENOrdering Facility: [facility] Address: [address] [place] [address] Result Comment: Carb oxyhemoglobin Reference Range for Smokers: 2.0-8.0% Performed By: #### A LLBG ####[facility] [id number] [place] [address] [place] CO2 (Bld) [Partial pressure] 40 mm Hg Normal 36-46 [facility] Comment on above: Order Comment: Speci men Type: ARTERIAL BLOOD SPECIMENOrdering Facility: [facility] Address: [address] [place] [address] Performed By: #### A LLBG ####[facility] LABCLIA [id number] [place] [address] [place] Glucose [Mass/Vol] 121 mg/dL High 60-105 [facility] Comment on above: Order Comment: Speci men Type: ARTERIAL BLOOD SPECIMENOrdering Facility: [facility] Address: [address] [place] [address] Performed By: #### A LLBG ####[facility] LABCLIA [id number] [place] [address] [place] HCO3 (Bld) [Moles/Vol] 28 mmol/L High 22-[address] [facility] Comment on above: Order Comment: Speci men Type: ARTERIAL BLOOD SPECIMENOrdering Facility: [facility] Address: [address] [place] [address] Performed By: #### A LLBG ####[facility] LABCLIA [id number] [place] [address] [place] Hematocrit (Bld) [Volume fraction] 33.3 % Low 39.0-51.0 [facility] Comment on above: Order Comment: Speci men Type: ARTERIAL BLOOD SPECIMENOrdering Facility: [facility] Address: [address] [place] [address] Performed By: #### A LLBG ####[facility] LABCLIA [id number] [place] [id number] [place] Hemoglobin (Bld) [Mass/Vol] 10.8 g/dL Low 13.0-17.0 [facility] Comment on above: Order Comment: Speci men Type: ARTERIAL BLOOD SPECIMENOrdering Facility: [facility] Address: [address] [place] [address] Performed By: #### A LLBG ####[facility] LABCLIA [id number] [place] [address] [place] Lactate [Moles/Vol] 1.5 mmol/L Normal 0.5-2.2 [facility] Comment on above: Order Comment: Speci men Type: ARTERIAL BLOOD SPECIMENOrdering Facility: [facility] Address: [address] [place] [address] Performed By: #### A LLBG ####[facility] LABCLIA [id number] [place] [address] [place] Methemoglobin (Bld) [Mass fraction] 0.4 % Normal 0.0-1.5 [facility] Comment on above: Order Comment: Speci men Type: ARTERIAL BLOOD SPECIMENOrdering Facility: [facility] Address: [address] [place] [address] Performed By: #### A LLBG ####[facility] LABCLIA [id number] [place] [address] [place] O2 THERAPY RA=Room Air Normal [facility] Comment on above: Order Comment: Speci men Type: ARTERIAL BLOOD SPECIMENOrdering Facility: [facility] Address: [address] [place] [address] Performed By: #### A LLBG ####[facility] LABCLIA [id number] [place] [address] [place] Oxygen (Bld) [Partial pressure] 119 mm Hg High 85-95 [facility] Comment on above: Order Comment: Speci men Type: ARTERIAL BLOOD SPECIMENOrdering Facility: [facility] Address: [address] [place], [place] [address] Performed By: #### A LLBG ####[facility] LABCLIA [id number] [place] [id number] [place] Oxyhemoglobin (BldA) [Mass fraction] 97 % Normal 95-98 [facility] Comment on above: Order Comment: Speci men Type: ARTERIAL BLOOD SPECIMENOrdering Facility: [facility] Address: [address] [place] [address] Performed By: #### A LLBG ####[facility] LABCLIA [id number] [address] [address] [place] pH (Bld) 7.47 [pH] High 7.35-7.45 [facility] Comment on above: Order Comment: Speci men Type: ARTERIAL BLOOD SPECIMENOrdering Facility: [facility] Address: [address] [place] [address] Performed By: #### A LLBG ####[facility] LABCLIA [id number] [address] [address] [place] PO2 / FIO2 RATIO 567 mmHg Normal >300 [facility] Comment on above: Order Comment: Speci men Type: ARTERIAL BLOOD SPECIMENOrdering Facility: [facility] Address: [address] [place] [address] Performed By: #### A LLBG ####[facility] LABCLIA [id number] [place] [id number] [place] Potassium [Moles/Vol] 4.0 mmol/L Normal 3.5-5.0 [facility] Comment on above: Order Comment: Speci men Type: ARTERIAL BLOOD SPECIMENOrdering Facility: [facility] Address: [address] [place] [address] Performed By: #### A LLBG ####[facility] LABCLIA [id number] [place] [id number] [place] Sodium [Moles/Vol] 134 mmol/L Low 136-144 [facility] Comment on above: Order Comment: Speci men Type: ARTERIAL BLOOD SPECIMENOrdering Facility: [facility] Address: [address] [place] [address] Performed By: #### A LLBG ####[facility] LABCLIA [id number] [address] [address] [place] Basic Metabolic Profile (BMP )on 11-24-2024 BUN Normal 4-19 [facility] Comment on above: Result Comment: Canc elled via OM: MD Ordered Performed By: #### L 500.2500, L100.0100 ####[facility] [address] [place], [address] BUN/CRE Normal 10-20 [facility] Comment on above: Result Comment: Canc elled via OM: MD Ordered Performed By: #### L 500.2500, L100.0100 ####[facility] [address] [place], [address] Calcium Normal 7.6-11.0 [facility] Comment on above: Result Comment: Canc elled via OM: MD Ordered Performed By: #### L 500.2500, L100.0100 ####[facility] [address] [place], [address] CL Normal 98-108 [facility] Comment on above: Result Comment: Canc elled via OM: MD Ordered Performed By: #### L 500.2500, L100.0100 ####[facility] [address] [place], [address] CO2 Normal 21.0-32.0 [facility] Comment on above: Result Comment: Canc elled via OM: MD Ordered Performed By: #### L 500.2500, L100.0100 ####[facility] [address] [place], [address] CREAT,SERUM Normal 0.70-1.20 [facility] Comment on above: Result Comment: Canc elled via OM: MD Ordered Performed By: #### L 500.2500, L100.0100 ####[facility] [address] [place], [address] eGFR Normal >60 [facility] Comment on above: Result Comment: Canc elled via OM: MD Ordered Performed By: #### L 500.2500, L100.0100 ####[facility] [address] [place], [address] GAP Normal 5-15 [facility] Comment on above: Result Comment: Canc elled via OM: MD Ordered Performed By: #### L 500.2500, L100.0100 ####[facility] [address] [place], [address] GLU Normal 70-99 [facility] Comment on above: Result Comment: Canc elled via OM: MD Ordered Performed By: #### L 500.2500, L100.0100 ####[facility] [address] [place], [address] Potassium Normal 3.3-5.1 [facility] Comment on above: Result Comment: Canc elled via OM: MD Ordered Performed By: #### L 500.2500, L100.0100 ####[facility] [address] [place], [address] Basic Metabolic Profile (BMP) Normal 133-145 [facility] Comment on above: Result Comment: Canc elled via OM: MD Ordered Performed By: #### L 500.2500, L100.0100 ####[facility] [address] [place], [address] CBC W/Diff, Automatedon 07-0 5-2025 Absolute Neut Normal 2.0-7.7 [facility] Comment on above: Result Comment: Canc elled via OM: MD Ordered Performed By: #### L 500.2500, L100.0100 ####[facility] [address] [place], [address] HCT Normal 40-54 [facility] Comment on above: Result Comment: Canc elled via OM: MD Ordered Performed By: #### L 500.2500, L100.0100 ####[facility] [address] [place], [address] HGB Normal 13.0-16.5 [facility] Comment on above: Result Comment: Canc elled via OM: MD Ordered Performed By: #### L 500.2500, L100.0100 ####[facility] [address] [place], [address] MCH Normal 27.0-32.0 [facility] Comment on above: Result Comment: Canc elled via OM: MD Ordered Performed By: #### L 500.2500, L100.0100 ####[facility] [address] [place], [address] MCHC Normal 32-36 [facility] Comment on above: Result Comment: Canc elled via OM: MD Ordered Performed By: #### L 500.2500, L100.0100 ####[facility] [address] [place], [address] MCV Normal 80-94 [facility] Comment on above: Result Comment: Canc elled via OM: MD Ordered Performed By: #### L 500.2500, L100.0100 ####[facility] [address] [place], [address] NEUT% Normal 47-70 [facility] Comment on above: Result Comment: Canc elled via OM: MD Ordered Performed By: #### L 500.2500, L100.0100 ####[facility] [address] [place], [address] PLT Normal 150-450 [facility] Comment on above: Result Comment: Canc elled via OM: MD Ordered Performed By: #### L 500.2500, L100.0100 ####[facility] [address] [place], [address] RBC Normal 4.6-6.2 [facility] Comment on above: Result Comment: Canc elled via OM: MD Ordered Performed By: #### L 500.2500, L100.0100 ####[facility] [address] [place], [address] RDW CV Normal 11.6-14.6 [facility] Comment on above: Result Comment: Canc elled via OM: MD Ordered Performed By: #### L 500.2500, L100.0100 ####[facility] [address] [place], [address] RDW SD Normal 35.1-43.9 [facility] Comment on above: Result Comment: Canc elled via OM: MD Ordered Performed By: #### L 500.2500, L100.0100 ####[facility] [address] [place], [address] WBC Normal 4.4-11.0 [facility] Comment on above: Result Comment: Canc elled via OM: MD Ordered Performed By: #### L 500.2500, L100.0100 ####[facility] [address] [place], [address] CBC panel Auto (Bld)on 11-24 Erythrocyte distribution width (RBC) [Ratio] 15.7 % High 11.5-15.0 [facility] Comment on above: Order Comment: Speci men Type: BLOOD SPECIMENOrdering Facility: [facility] Address: [address] [place], [place] [id number] Performed By: #### 5 8410-2 ####[facility] [id number] [place] [address] [place] Hematocrit (Bld) [Volume fraction] 32.8 % Low 39.0-51.0 [facility] Comment on above: Order Comment: Speci men Type: BLOOD SPECIMENOrdering Facility: [facility] Address: [address] [place] [address] Performed By: #### 5 8410-2 ####[facility] [id number] [address] [address] [place] Hemoglobin (Bld) [Mass/Vol] 10.8 g/dL Low 13.0-17.0 [facility] Comment on above: Order Comment: Speci men Type: BLOOD SPECIMENOrdering Facility: [facility] Address: [address] [place] [address] Performed By: #### 5 8410-2 ####[facility] [id number] [place] [address] [place] MCH (RBC) [Entitic mass] 28.5 pg Normal 26.0-34.0 [facility] Comment on above: Order Comment: Speci men Type: BLOOD SPECIMENOrdering Facility: [facility] Address: [address] [place] [address] Performed By: #### 5 8410-2 ####[facility] [id number] [place] [address] [place] MCHC (RBC) [Mass/Vol] 32.9 g/dL Normal 30.5-36.0 [facility] Comment on above: Order Comment: Speci men Type: BLOOD SPECIMENOrdering Facility: [facility] Address: [address] [place] [address] Performed By: #### 5 8410-2 ####[facility] [id number] [place] [address] [place] MCV (RBC) [Entitic vol] 86.5 fL Normal 80.0-100.0 [facility] Comment on above: Order Comment: Speci men Type: BLOOD SPECIMENOrdering Facility: [facility] Address: [address] [place] [address] Performed By: #### 5 8410-2 ####[facility] [id number] [place] [address] [place] Nucleated RBC (Bld) [#/Vol] 10*3/uL Normal <0.01 [facility] Comment on above: Order Comment: Speci men Type: BLOOD SPECIMENOrdering Facility: [facility] Address: [address] [place] [address] Performed By: #### 5 8410-2 ####[facility] [id number] [place] [id number] [place] Platelet mean volume (Bld) [Entitic vol] 11.5 fL Normal 9.0-12.7 [facility] Comment on above: Order Comment: Speci men Type: BLOOD SPECIMENOrdering Facility: [facility] Address: [address] [place] [address] Performed By: #### 5 8410-2 ####[facility] [id number] [place] [address] [place] Platelets (Bld) [#/Vol] 152 10*3/uL Normal 150-400 [facility] Comment on above: Order Comment: Speci men Type: BLOOD SPECIMENOrdering Facility: [facility] Address: [address] [place] [address] Performed By: #### 5 8410-2 ####[facility] [id number] [place] [address] [place] RBC (Bld) [#/Vol] 3.79 10*6/uL Low 4.20-6.00 [facility] Comment on above: Order Comment: Speci men Type: BLOOD SPECIMENOrdering Facility: [facility] Address: [address] [place] [address] Performed By: #### 5 8410-2 ####[facility] [id number] [place] [id number] [place] WBC (Bld) [#/Vol] 8.79 10*3/uL Normal 3.70-11.00 [facility] Comment on above: Order Comment: Speci men Type: BLOOD SPECIMENOrdering Facility: [facility] Address: [address] [place] [address] Performed By: #### 5 8410-2 ####[facility] [id number] [address] [place] [address] [place] Comprehensive metabolic 2000 panelon 11-24-2024 Albumin [Mass/Vol] 3.3 g/dL Low 3.9-4.9 [facility] Comment on above: Order Comment: Speci men Type: BLOOD SPECIMENOrdering Facility: [facility] Address: [address] [place] [address] Performed By: #### 1 9123-9, 28584-4, 2777-1 ####[facility] [id number] [place] [id number] [place] ALP [Catalytic activity/Vol] 64 U/L Normal 38-113 [facility] Comment on above: Order Comment: Speci men Type: BLOOD SPECIMENOrdering Facility: [facility] Address: [address] [place] [address] Performed By: #### 1 9123-9, 29123-6, 2777-1 ####[facility] [id number] [place] [address] [place] ALT [Catalytic activity/Vol] 35 U/L Normal 10-54 [facility] Comment on above: Order Comment: Speci men Type: BLOOD SPECIMENOrdering Facility: [facility] Address: [address] [place] [address] Performed By: #### 1 9123-9, 95683-3, 2777-1 ####[facility] [id number] [place] [id number] [place] Anion gap [Moles/Vol] 16 mmol/L High 8-15 [facility] Comment on above: Order Comment: Speci men Type: BLOOD SPECIMENOrdering Facility: [facility] Address: [address] [place] [address] Performed By: #### 1 9123-9, 91301-1, 2777-1 ####[facility] [id number] [address] [address] [place] AST [Catalytic activity/Vol] 14 U/L Normal 14-40 [facility] Comment on above: Order Comment: Speci men Type: BLOOD SPECIMENOrdering Facility: [facility] Address: [address] [place] [address] Performed By: #### 1 9123-9, 26752-2, 2777-1 ####[facility] [id number] [place] [address] [place] Bilirubin [Mass/Vol] 0.2 mg/dL Normal 0.2-1.3 [facility] Comment on above: Order Comment: Speci men Type: BLOOD SPECIMENOrdering Facility: [facility] Address: [address] [place] [address] Performed By: #### 1 9123-9, 52882-5, 2777- ####[facility] [id number] [place] [address] [place] Calcium [Mass/Vol] 9.1 mg/dL Normal 8.5-10.2 [facility] Comment on above: Order Comment: Speci men Type: BLOOD SPECIMENOrdering Facility: [facility] Address: [address] [place] [address] Performed By: #### 1 9123-9, 39344-0, 2777- ####[facility] [id number] [place] [address] [place] Chloride [Moles/Vol] 93 mmol/L Low 98-107 [facility] Comment on above: Order Comment: Speci men Type: BLOOD SPECIMENOrdering Facility: [facility] Address: [address] [place] [address] Performed By: #### 1 9123-9, 39795-4, 2777-1 ####[facility] [id number] [place] [id number] [place] CO2 [Moles/Vol] 27 mmol/L Normal 22-30 [facility] Comment on above: Order Comment: Speci men Type: BLOOD SPECIMENOrdering Facility: [facility] Address: [address] [place] [address] Performed By: #### 1 9123-9, 16909-2, 2776-05 ####[facility] [id number] [place] [id number] [place] Creatinine [Mass/Vol] 4.46 mg/dL High 0.73-1.22 [facility] Comment on above: Order Comment: Speci men Type: BLOOD SPECIMENOrdering Facility: [facility] Address: [address] [place] [address] Performed By: #### 1 239, , 2776-05 ####[facility] [id number] [place] [address] [place] Creatinine and Glomerular filtration rate.predicted panel (S/P/Bld) 12 mL/min/1.73m??? Low >=60 [facility] Comment on above: Order Comment: Speci men Type: BLOOD SPECIMENOrdering Facility: [facility] Address: [address] [place] [address] Result Comment: Tessa mated Glomerular Filtration Rate [...] actual GFR. Performed By: #### 1 9123-9, 63923-1, 2776-05 ####[facility] [id number] [place] [id number] [place] Glucose [Mass/Vol] 118 mg/dL High 74-99 [facility] Comment on above: Order Comment: Speci men Type: BLOOD SPECIMENOrdering Facility: [facility] Address: [address] [place] [address] [place] [address] Result Comment: The [place] [employer] Association (ADA) provides guidance for cutoff [...] Standards of Medical Care in Diabetes 2016, [place] [employer]. Diabetes Care. 2016.39(Suppl 1). Performed By: #### 1 9123-9, 87356-5, 2776-05 ####[facility] [id number] [place] [address] [place] Potassium [Moles/Vol] 4.2 mmol/L Normal 3.7-5.1 [facility] Comment on above: Order Comment: Speci men Type: BLOOD SPECIMENOrdering Facility: [facility] Address: [address] [place] [address] Performed By: #### 1 9123-9, 66250-3, 2776-05 ####[facility] [id number] [place] [address] [place] Protein [Mass/Vol] 6.2 g/dL Low 6.3-8.0 [facility] Comment on above: Order Comment: Speci men Type: BLOOD SPECIMENOrdering Facility: [facility] Address: [address] [place] [address] Performed By: #### 1 9123-9, 57878-8, 2776-05 ####[facility] [id number] [address] [address] [place] Sodium [Moles/Vol] 136 mmol/L Normal 136-144 [facility] Comment on above: Order Comment: Speci men Type: BLOOD SPECIMENOrdering Facility: [facility] Address: [address] [place], [place] [address] Performed By: #### 1 9123-9, 11097-8, 2777-1 ####[facility] [id number] [address] [address] [place] Urea nitrogen [Mass/Vol] 49 mg/dL High 9-24 [facility] Comment on above: Order Comment: Speci men Type: BLOOD SPECIMENOrdering Facility: [facility] Address: [address] [place] [address] Performed By: #### 1 9123-9, 00763-8, 2777-1 ####[facility] [id number] [place] [id number] [place] Gas and Carbon monoxide pane l (BldV)on 11-24-2024 BASE DEFICIT, VENOUS Normal [facility] Comment on above: Order Comment: Speci men Type: VENOUS BLOOD SPECIMENOrdering Facility: [facility] Address: [address] [place] [address] Result Comment: Vj brown RN Canceled by Clinician Performed By: #### 2 4344-4 ####[facility] [id number] [place] [address] [place] Base excess Calc (BldV) [Moles/Vol] Normal 0-2 [facility] Comment on above: Order Comment: Speci men Type: VENOUS BLOOD SPECIMENOrdering Facility: [facility] Address: [address] [place], [place] [address] Result Comment: Vj brown RN Canceled by ClinicianCorrected result: Previously reported as 4 mmol/L on 11/24/2024 at 7:44 AM EDT. Performed By: #### 2 4344-4 ####[facility] [id number] [address] [place] [address] [place] Calcium.ionized (Bld) [Mass/Vol] Normal 1.08-1.30 [facility] Comment on above: Order Comment: Speci men Type: VENOUS BLOOD SPECIMENOrdering Facility: [facility] Address: [address] [place] [address] Result Comment: Vj brown RN Canceled by ClinicianCorrected result: Previously reported as 1.14 mmol/L on 11/24/2024 at 7:44 AM EDT. Performed By: #### 2 4344-4 ####[facility] [id number] [place] [address] [place] Calcium.ionized adjusted to pH 7.4 (BldA) [Moles/Vol] Normal 1.08-1.30 [facility] Comment on above: Order Comment: Speci men Type: VENOUS BLOOD SPECIMENOrdering Facility: [facility] Address: [address] [place] [address] Result Comment: Vj brown RN Canceled by ClinicianCorrected result: Previously reported as 1.15 mmol/L on 11/24/2024 at 7:44 AM EDT. Performed By: #### 2 4344-4 ####[facility] [id number] [place] [address] [place] Carboxyhemoglobin (BldV) [Mass fraction] Normal 0.0-2.0 [facility] Comment on above: Order Comment: Speci men Type: VENOUS BLOOD SPECIMENOrdering Facility: [facility] Address: [address] [place] [address] Result Comment: Vj brown RN Canceled by ClinicianCorrected result: Previously reported as 1.2 % on 11/24/2024 at 7:44 AM EDT. Performed By: #### 2 4344-4 ####[facility] [id number] [place] [address] [place] CO2 (BldV) [Partial pressure] Normal 42-55 [facility] Comment on above: Order Comment: Speci men Type: VENOUS BLOOD SPECIMENOrdering Facility: [facility] Address: [address] [place] [address] Result Comment: Vj brown RN Canceled by ClinicianCorrected result: Previously reported as 46 mmHg on 11/24/2024 at 7:44 AM EDT. Performed By: #### 2 4344-4 ####[facility] [id number] [address] [address] [place] CO2 adjusted to patient's actual temperature (BldV) [Partial pressure] Normal 42-55 [facility] Comment on above: Order Comment: Speci men Type: VENOUS BLOOD SPECIMENOrdering Facility: [facility] Address: [address] [place] [address] Result Comment: Vj brown RN Canceled by ClinicianCorrected result: Previously reported as 46 mmHg on 11/24/2024 at 7:44 AM EDT. Performed By: #### 2 4344-4 ####[facility] [id number] [place] [address] [place] Glucose [Mass/Vol] Normal 60-105 [facility] Comment on above: Order Comment: Speci men Type: VENOUS BLOOD SPECIMENOrdering Facility: [facility] Address: [address] [place] [address] Result Comment: Vj brown RN Canceled by ClinicianCorrected result: Previously reported as 78 mg/dL on 11/24/2024 at 7:44 AM EDT. Performed By: #### 2 4344-4 ####[facility] [id number] [place] [id number] [place] HCO3 (Bld) [Moles/Vol] Normal 24-[address] [facility] Comment on above: Order Comment: Speci men Type: VENOUS BLOOD SPECIMENOrdering Facility: [facility] Address: [address] [place] [address] Result Comment: Vj brown RN Canceled by ClinicianCorrected result: Previously reported as 29 mmol/L on 11/24/2024 at 7:44 AM EDT. Performed By: #### 2 4344-4 ####[facility] [id number] [address] [place] [facility] Hematocrit (Bld) [Volume fraction] Normal 39.0-51.0 [facility] Comment on above: Order Comment: Speci men Type: VENOUS BLOOD SPECIMENOrdering Facility: [facility] Address: [address] [place] [address] Result Comment: Vj brown RN Canceled by ClinicianCorrected result: Previously reported as 34.7 % on 11/24/2024 at 7:44 AM EDT. Performed By: #### 2 4344-4 ####[facility] [id number] [address] Hemoglobin (Bld) [Mass/Vol] Normal 13.0-17.0 [facility] Comment on above: Order Comment: Speci men Type: VENOUS BLOOD SPECIMENOrdering Facility: [facility] Address: [address] [place] [address] Result Comment: Vj brown RN Canceled by ClinicianCorrected result: Previously reported as 11.2 g/dL on 11/24/2024 at 7:44 AM EDT. Performed By: #### 2 4344-4 ####[facility] [id number] [address] [place] [facility] Lactate [Moles/Vol] Normal 0.5-2.2 [facility] Comment on above: Order Comment: Speci men Type: VENOUS BLOOD SPECIMENOrdering Facility: [facility] Address: [address] [place] [address] Result Comment: Vj brown RN Canceled by ClinicianCorrected result: Previously reported as 0.9 mmol/L on 11/24/2024 at 7:44 AM EDT. Performed By: #### 2 4344-4 ####[facility] [id number] [place] [id number] [facility] CAR Methemoglobin (Bld) [Mass fraction] Normal 0.0-1.5 [facility] Comment on above: Order Comment: Speci men Type: VENOUS BLOOD SPECIMENOrdering Facility: [facility] Address: [address] [place] [address] Result Comment: Vj brown RN Canceled by ClinicianCorrected result: Previously reported as 1.0 % on 11/24/2024 at 7:44 AM EDT. Performed By: #### 2 4344-4 ####[facility] [id number] [place] [address] [place] O2 THERAPY RA=Room Air Normal [facility] Comment on above: Order Comment: Speci men Type: VENOUS BLOOD SPECIMENOrdering Facility: [facility] Address: [address] [place] [address] Performed By: #### 2 4344-4 ####[facility] [id number] [address] [place] Oxygen (BldV) [Partial pressure] Normal 35-45 [facility] Comment on above: Order Comment: Speci men Type: VENOUS BLOOD SPECIMENOrdering Facility: [facility] Address: [address] [place] [address] Result Comment: Vj brown RN Canceled by ClinicianCorrected result: Previously reported as 85 mmHg on 11/24/2024 at 7:44 AM EDT. Performed By: #### 2 4344-4 ####[facility] [id number] [place] [id number] [place] Oxygen adjusted to patient's actual temperature (BldV) [Partial pressure] Normal 35-45 [facility] Comment on above: Order Comment: Speci men Type: VENOUS BLOOD SPECIMENOrdering Facility: [facility] Address: [address] [place] [address] Result Comment: Vj brown RN Canceled by ClinicianCorrected result: Previously reported as 84 mmHg on 11/24/2024 at 7:44 AM EDT. Performed By: #### 2 4344-4 ####[facility] [id number] [address] [address] [place] Oxygen saturation in Venous blood Normal 60-85 [facility] Comment on above: Order Comment: Speci men Type: VENOUS BLOOD SPECIMENOrdering Facility: [facility] Address: [address] [place] [address] Result Comment: Vj brown RN Canceled by ClinicianCorrected result: Previously reported as 96 % on 11/24/2024 at 7:44 AM EDT. Performed By: #### 2 4344-4 ####[facility] [id number] [address] [address] [place] Oxyhemoglobin (BldV) [Mass fraction] Normal 60-85 [facility] Comment on above: Order Comment: Speci men Type: VENOUS BLOOD SPECIMENOrdering Facility: [facility] Address: [address] [place] [address] Result Comment: Vj brown RN Canceled by ClinicianCorrected result: Previously reported as 94 % on 11/24/2024 at 7:44 AM EDT. Performed By: #### 2 4344-4 ####[facility] [id number] [address] [address] [place] pH (BldV) Normal 7.32-7.42 [facility] Comment on above: Order Comment: Speci men Type: VENOUS BLOOD SPECIMENOrdering Facility: [facility] Address: [address] [place], [place] [address] Result Comment: Vj brown RN Canceled by ClinicianCorrected result: Previously reported as 7.42 on 11/24/2024 at 7:44 AM EDT. Performed By: #### 2 4344-4 ####[facility] [id number] [address] [place] [address] [place] pH adjusted to patient's actual temperature (BldV) Normal 7.32-7.42 [facility] Comment on above: Order Comment: Speci men Type: VENOUS BLOOD SPECIMENOrdering Facility: [facility] Address: [address] [place] [address] Result Comment: Vj brown RN Canceled by ClinicianCorrected result: Previously reported as 7.42 on 11/24/2024 at 7:44 AM EDT. Performed By: #### 2 4344-4 ####[facility] [id number] [place] [id number] [place] Potassium [Moles/Vol] Normal 3.5-5.0 [facility] Comment on above: Order Comment: Speci men Type: VENOUS BLOOD SPECIMENOrdering Facility: [facility] Address: [address] [place] [address] Result Comment: Vj brown RN Canceled by ClinicianCorrected result: Previously reported as 4.4 mmol/L on 11/24/2024 at 7:44 AM EDT. Performed By: #### 2 4344-4 ####[facility] [id number] [place] [id number] [place] Sodium [Moles/Vol] Normal 136-144 [facility] Comment on above: Order Comment: Speci men Type: VENOUS BLOOD SPECIMENOrdering Facility: [facility] Address: [address] [place] [address] Result Comment: Vj brown RN Canceled by ClinicianCorrected result: Previously reported as 134 mmol/L on 11/24/2024 at 7:44 AM EDT. Performed By: #### 2 4344-4 ####[facility] [id number] [address] [address] [place] TEMPERATURE, BODY Normal [facility] Comment on above: Order Comment: Speci men Type: VENOUS BLOOD SPECIMENOrdering Facility: [facility] Address: [address] [place] [address] Result Comment: Vj brown RN Canceled by ClinicianCorrected result: Previously reported as 36.9 C on 11/24/2024 at 7:44 AM EDT. Performed By: #### 2 4344-4 ####[facility] [id number] [address] [address] [place] Magnesium SerPl-ncon 11-24 Magnesium [Mass/Vol] 2.2 mg/dL Normal 1.7-2.3 [facility] Comment on above: Order Comment: Speci men Type: BLOOD SPECIMENOrdering Facility: [facility] Address: [address] [place] [address] Performed By: #### 1 9123-9, 58406-3, 2777-1 ####[facility] [id number] [place] [id number] [place] Phosphate SerPl-ncon 11-24 Phosphate [Mass/Vol] 6.3 mg/dL High 2.7-4.8 [facility] Comment on above: Order Comment: Speci men Type: BLOOD SPECIMENOrdering Facility: [facility] Address: [address] [place] [address] Performed By: #### 1 9123-9, 85154-0, 2777-1 ####[facility] [id number] [place] [id number] [facility] OF CAR THERAPY NTon 11-24-2024 THERAPY NT Normal [facility] aPTT PPPon 11-24-2024 aPTT Coag (PPP) [Time] 32.9 s High 23.0-32.[address] [facility] Comment on above: Order Comment: Speci men Type: BLOOD SPECIMENOrdering Facility: [facility] Address: [address] [place] [address] Performed By: #### 1 4979-9 ####[facility] [id number] [place] [id number] [place] ARTERIAL BLOOD GASESon 11-23 Base excess Calc (Bld) [Moles/Vol] 7 mmol/L High 0-2 [facility] Comment on above: Order Comment: Speci men Type: ARTERIAL BLOOD SPECIMENOrdering Facility: [facility] Address: [address] [place] [address] Performed By: #### A LLBG ####[facility] [id number] [place] [address] [place] Body temperature 97.7 [degF] Normal [facility] Comment on above: Order Comment: Speci men Type: ARTERIAL BLOOD SPECIMENOrdering Facility: [facility] Address: [address] [place] [address] Performed By: #### A LLBG ####[facility] [id number] [place] [address] [place] Calcium.ionized (Bld) [Mass/Vol] 1.06 mmol/L Low 1.08-1.30 [facility] Comment on above: Order Comment: Speci men Type: ARTERIAL BLOOD SPECIMENOrdering Facility: [facility] Address: [address] [place] [address] Performed By: #### A LLBG ####[facility] LABIA [id number] [place] [address] [place] Calcium.ionized adjusted to pH 7.4 (BldA) [Moles/Vol] 1.11 mmol/L Normal 1.08-1.30 [facility] Comment on above: Order Comment: Speci men Type: ARTERIAL BLOOD SPECIMENOrdering Facility: [facility] Address: [address] [place] [address] Performed By: #### A LLBG ####[facility] LABCLIA [id number] [place] [id number] [place] Carboxyhemoglobin (BldA) [Mass fraction] 0.5 % Normal 0.0-2.0 [facility] Comment on above: Order Comment: Speci men Type: ARTERIAL BLOOD SPECIMENOrdering Facility: [facility] Address: [address] [place] [address] Result Comment: Carb oxyhemoglobin Reference Range for Smokers: 2.0-8.0% Performed By: #### A LLBG ####[facility] LABCLIA [id number] [place] [address] [place] CO2 (Bld) [Partial pressure] 39 mm Hg Normal 36-46 [facility] Comment on above: Order Comment: Speci men Type: ARTERIAL BLOOD SPECIMENOrdering Facility: [facility] Address: [address] [place] [address] Performed By: #### A LLBG ####[facility] LABIA [id number] [place] [address] [place] CO2 adjusted to patient's actual temperature (Bld) [Partial pressure] 38 mmHg Normal 36-46 [facility] Comment on above: Order Comment: Speci men Type: ARTERIAL BLOOD SPECIMENOrdering Facility: [facility] Address: [address] [place] [address] Performed By: #### A LLBG ####[facility] LABIA [id number] [place] [address] [place] Glucose [Mass/Vol] 144 mg/dL High 60-105 [facility] Comment on above: Order Comment: Speci men Type: ARTERIAL BLOOD SPECIMENOrdering Facility: [facility] Address: [address] [place] [address] Performed By: #### A LLBG ####[facility] LABIA [id number] [place] [address] [place] HCO3 (Bld) [Moles/Vol] 30 mmol/L High 22-[address] [facility] Comment on above: Order Comment: Speci men Type: ARTERIAL BLOOD SPECIMENOrdering Facility: [facility] Address: [address] [place] [address] Performed By: #### A LLBG ####[facility] LABCLIA [id number] [place] [id number] [place] Hematocrit (Bld) [Volume fraction] 34.1 % Low 39.0-51.0 [facility] Comment on above: Order Comment: Speci men Type: ARTERIAL BLOOD SPECIMENOrdering Facility: [facility] Address: [address] [place] [address] Performed By: #### A LLBG ####[facility] LABCLIA [id number] [place] [address] [place] Hemoglobin (Bld) [Mass/Vol] 11.1 g/dL Low 13.0-17.0 [facility] Comment on above: Order Comment: Speci men Type: ARTERIAL BLOOD SPECIMENOrdering Facility: [facility] Address: [address] [place] [address] Performed By: #### A LLBG ####[facility]IA [id number] [place] [address] [place] Lactate [Moles/Vol] 1.5 mmol/L Normal 0.5-2.2 [facility] Comment on above: Order Comment: Speci men Type: ARTERIAL BLOOD SPECIMENOrdering Facility: [facility] Address: [address] [place] [address] Performed By: #### A LLBG ####[facility] LABIA [id number] [place] [address] [place] Methemoglobin (Bld) [Mass fraction] 1.2 % Normal 0.0-1.5 [facility] Comment on above: Order Comment: Speci men Type: ARTERIAL BLOOD SPECIMENOrdering Facility: [facility] Address: [address] [place] [address] Performed By: #### A LLBG ####[facility] LABIA [id number] [place] [id number] [place] O2 THERAPY RA=Room Air Normal [facility] Comment on above: Order Comment: Speci men Type: ARTERIAL BLOOD SPECIMENOrdering Facility: [facility] Address: [address] [place] [id number] Performed By: #### A LLBG ####[facility] LABCLIA [id number] [address] [address] [place] Oxygen (Bld) [Partial pressure] 105 mm Hg High 85-95 [facility] Comment on above: Order Comment: Speci men Type: ARTERIAL BLOOD SPECIMENOrdering Facility: [facility] Address: [address] [place], [place] [address] Performed By: #### A LLBG ####[facility] LABCLIA [id number] [place] [id number] [place] Oxygen adjusted to patient's actual temperature (Bld) [Partial pressure] 102 mmHg High 85-95 [facility] Comment on above: Order Comment: Speci men Type: ARTERIAL BLOOD SPECIMENOrdering Facility: [facility] Address: [address] [place] [address] Performed By: #### A LLBG ####[facility] LABCLIA [id number] [place] [address] [place] Oxyhemoglobin (BldA) [Mass fraction] 95 % Normal 95-98 [facility] Comment on above: Order Comment: Speci men Type: ARTERIAL BLOOD SPECIMENOrdering Facility: [facility] Address: [address] [place], [place] [address] Performed By: #### A LLBG ####[facility] LABCLIA [id number] [address] [address] [place] pH (Bld) 7.50 [pH] High 7.35-7.45 [facility] Comment on above: Order Comment: Speci men Type: ARTERIAL BLOOD SPECIMENOrdering Facility: [facility] Address: [address] [place], [place] [address] Performed By: #### A LLBG ####[facility] LABCLIA [id number] [address] [address] [place] pH adjusted to patient's actual temperature (Bld) 7.51 High 7.35-7.45 [facility] Comment on above: Order Comment: Speci men Type: ARTERIAL BLOOD SPECIMENOrdering Facility: [facility] Address: [address] [place] [address] Performed By: #### A LLBG ####[facility] LABCLIA [id number] [place] [address] [place] PO2 / FIO2 RATIO 500 mmHg Normal >300 [facility] Comment on above: Order Comment: Speci men Type: ARTERIAL BLOOD SPECIMENOrdering Facility: [facility] Address: [address] [place] [address] Performed By: #### A LLBG ####[facility] LABIA [id number] [place] [address] [place] Potassium [Moles/Vol] 3.8 mmol/L Normal 3.5-5.0 [facility] Comment on above: Order Comment: Speci men Type: ARTERIAL BLOOD SPECIMENOrdering Facility: [facility] Address: [address] [place] [address] Performed By: #### A LLBG ####[facility] LABIA [id number] [place] [address] [place] Sodium [Moles/Vol] 133 mmol/L Low 136-144 [facility] Comment on above: Order Comment: Speci men Type: ARTERIAL BLOOD SPECIMENOrdering Facility: [facility] Address: [address] [place], [place] [address] Performed By: #### A LLBG ####[facility] LABCLIA [id number] [place] [address] [place] [facility] Urea nitrogen post dialysis [Mass/Vol] 34 mg/dL High 9-24 [facility] Comment on above: Order Comment: Speci men Type: BLOOD SPECIMENOrdering Facility: [facility] Address: [address] [place] [id number] Performed By: #### 1 1064-3 ####[facility] LABCLIA [id number] [address] [address] [place] BUN pre dial SerPl-mCncon Urea nitrogen pre dialysis [Mass/Vol] 103 mg/dL High 9-24 [facility] Comment on above: Order Comment: Speci men Type: BLOOD SPECIMENOrdering Facility: [facility] Address: [address] [place] [address] Performed By: #### 1 1065-0, 3024-7, 3016-3 ####[facility] LABCLIA [id number] [address] [place] Basic Metabolic Profile (BMP )on 11-23-2024 BUN Normal 4-19 [facility] Comment on above: Result Comment: Canc elled via OM: MD Ordered Performed By: #### L 500.2500, L100.0100 ####[facility] [address] [place], [address] BUN/CRE Normal 10-20 [facility] Comment on above: Result Comment: Canc elled via OM: MD Ordered Performed By: #### L 500.2500, L100.0100 ####[facility] [address] [place], [address] Calcium Normal 7.6-11.0 [facility] Comment on above: Result Comment: Canc elled via OM: MD Ordered Performed By: #### L 500.2500, L100.0100 ####[facility] [address] [place], [address] CL Normal 98-108 [facility] Comment on above: Result Comment: Canc elled via OM: MD Ordered Performed By: #### L 500.2500, L100.0100 ####[facility] [facility] [address] [place], [address] CO2 Normal 21.0-32.0 [facility] Comment on above: Result Comment: Canc elled via OM: MD Ordered Performed By: #### L 500.2500, L100.0100 ####[facility] [address] [place], [address] CREAT,SERUM Normal 0.70-1.20 [facility] Comment on above: Result Comment: Canc elled via OM: MD Ordered Performed By: #### L 500.2500, L100.0100 ####[facility] [address] [place], [address] eGFR Normal >60 [facility] Comment on above: Result Comment: Canc elled via OM: MD Ordered Performed By: #### L 500.2500, L100.0100 ####[facility] [address] [place], [address] GAP Normal 5-15 [facility] Comment on above: Result Comment: Canc elled via OM: MD Ordered Performed By: #### L 500.2500, L100.0100 ####[facility] [address] [place], [address] GLU Normal 70-99 [facility] Comment on above: Result Comment: Canc elled via OM: MD Ordered Performed By: #### L 500.2500, L100.0100 ####[facility] [address] [place], [address] Potassium Normal 3.3-5.1 [facility] Comment on above: Result Comment: Canc elled via OM: MD Ordered Performed By: #### L 500.2500, L100.0100 ####[facility] [address] [place], [address] Basic Metabolic Profile (BMP) Normal 133-145 [facility] Comment on above: Result Comment: Canc elled via OM: MD Ordered Performed By: #### L 500.2500, L100.0100 ####[facility] [address] [place], [address] CBC W/Diff, Automatedon 07-0 Absolute Neut Normal 2.0-7.7 [facility] Comment on above: Result Comment: Canc elled via OM: MD Ordered Performed By: #### L 500.2500, L100.0100 ####[facility] [address] [place], [address] HCT Normal 40-54 [facility] Comment on above: Result Comment: Canc elled via OM: MD Ordered Performed By: #### L 500.2500, L100.0100 ####[facility] [address] [place], [address] HGB Normal 13.0-16.5 [facility] Comment on above: Result Comment: Canc elled via OM: MD Ordered Performed By: #### L 500.2500, L100.0100 ####[facility] [address] [place], [address] MCH Normal 27.0-32.0 [facility] Comment on above: Result Comment: Canc elled via OM: MD Ordered Performed By: #### L 500.2500, L100.0100 ####[facility] [address] [place], [address] MCHC Normal 32-36 [facility] Comment on above: Result Comment: Canc elled via OM: MD Ordered Performed By: #### L 500.2500, L100.0100 ####[facility] [address] [place], [address] MCV Normal 80-94 [facility] Comment on above: Result Comment: Canc elled via OM: MD Ordered Performed By: #### L 500.2500, L100.0100 ####[facility] [address] [place], [address] NEUT% Normal 47-70 [facility] Comment on above: Result Comment: Canc elled via OM: MD Ordered Performed By: #### L 500.2500, L100.0100 ####[facility] [address] [place], [address] PLT Normal 150-450 [facility] Comment on above: Result Comment: Canc elled via OM: MD Ordered Performed By: #### L 500.2500, L100.0100 ####[facility] [address] [place], [address] RBC Normal 4.6-6.2 [facility] Comment on above: Result Comment: Canc elled via OM: MD Ordered Performed By: #### L 500.2500, L100.0100 ####[facility] [address] [place], [address] RDW CV Normal 11.6-14.6 [facility] Comment on above: Result Comment: Canc elled via OM: MD Ordered Performed By: #### L 500.2500, L100.0100 ####[facility] [address] [place], [address] RDW SD Normal 35.1-43.9 [facility] Comment on above: Result Comment: Canc elled via OM: MD Ordered Performed By: #### L 500.2500, L100.0100 ####[facility] [address] [place], [address] WBC Normal 4.4-11.0 [facility] Comment on above: Result Comment: Canc elled via OM: MD Ordered Performed By: #### L 500.2500, L100.0100 ####[facility] [address] [place], [address] CBC panel Auto (Bld)on 11-23 Erythrocyte distribution width (RBC) [Ratio] 16.1 % High 11.5-15.0 [facility] Comment on above: Order Comment: Speci men Type: BLOOD SPECIMENOrdering Facility: [facility] Address: [address] [place] [address] Performed By: #### 5 5454-3, 63306-1 ####[facility] LABCLIA [id number] [place] [address] [place] Hematocrit (Bld) [Volume fraction] 33.7 % Low 39.0-51.0 [facility] Comment on above: Order Comment: Speci men Type: BLOOD SPECIMENOrdering Facility: [facility] Address: [address] [place] [address] Performed By: #### 5 5454-3, 12258-9 ####[facility] LABCLIA [id number] [place] [address] [place] Hemoglobin (Bld) [Mass/Vol] 10.6 g/dL Low 13.0-17.0 [facility] Comment on above: Order Comment: Speci men Type: BLOOD SPECIMENOrdering Facility: [facility] Address: [address] [place] [address] Performed By: #### 5 5454-3, 66805-3 ####[facility] LABCLIA [id number] [place] [address] [place] MCH (RBC) [Entitic mass] 28.0 pg Normal 26.0-34.0 [facility] Comment on above: Order Comment: Speci men Type: BLOOD SPECIMENOrdering Facility: [facility] Address: [address] [place] [address] Performed By: #### 5 5454-3, 20404-1 ####[facility] LABCLIA [id number] [place] [id number] [place] MCHC (RBC) [Mass/Vol] 31.5 g/dL Normal 30.5-36.0 [facility] Comment on above: Order Comment: Speci men Type: BLOOD SPECIMENOrdering Facility: [facility] Address: [address] [place] [address] Performed By: #### 5 5454-3, 65522-0 ####[facility] LABCLIA [id number] [place] [id number] [place] MCV (RBC) [Entitic vol] 88.9 fL Normal 80.0-100.0 [facility] Comment on above: Order Comment: Speci men Type: BLOOD SPECIMENOrdering Facility: [facility] Address: [address] [place] [address] Performed By: #### 5 5454-3, 56289-8 ####[facility] LABIA [id number] [place] [address] [place] Nucleated RBC (Bld) [#/Vol] 10*3/uL Normal <0.01 [facility] Comment on above: Order Comment: Speci men Type: BLOOD SPECIMENOrdering Facility: [facility] Address: [address] [place] [address] Performed By: #### 5 5454-3, 71244-3 ####[facility] LABIA [id number] [place] [address] [place] Platelet mean volume (Bld) [Entitic vol] 11.8 fL Normal 9.0-12.7 [facility] Comment on above: Order Comment: Speci men Type: BLOOD SPECIMENOrdering Facility: [facility] Address: [address] [place] [address] Performed By: #### 5 5454-3, 79910-6 ####[facility] LABCLIA [id number] [place] [id number] [place] Platelets (Bld) [#/Vol] 144 10*3/uL Low 150-400 [facility] Comment on above: Order Comment: Speci men Type: BLOOD SPECIMENOrdering Facility: [facility] Address: [address] [place] [address] Performed By: #### 5 5454-3, 15527-3 ####[facility] LABCLIA [id number] [place] [address] [place] RBC (Bld) [#/Vol] 3.79 10*6/uL Low 4.20-6.00 [facility] Comment on above: Order Comment: Speci men Type: BLOOD SPECIMENOrdering Facility: [facility] Address: [address] [place] [address] Performed By: #### 5 5454-3, 88967-5 ####[facility] LABCLIA [id number] [place] [address] [place] WBC (Bld) [#/Vol] 9.87 10*3/uL Normal 3.70-11.00 [facility] Comment on above: Order Comment: Speci men Type: BLOOD SPECIMENOrdering Facility: [facility] Address: [address] [place] [address] Performed By: #### 5 5454-3, 05399-1 ####[facility] LABCLIA [id number] [address] [place] CONFIRM BLOOD TYPEon 025 ABO A Normal [facility] Comment on above: Order Comment: Speci men Type: BLOOD SPECIMENOrdering Facility: [facility] Address: [address] [place] [address] Performed By: #### C ONABO ####[facility] BLOOD BANKCLIA [id number] [place] [address] [place] Rh Nom (Bld) Positive Normal [facility] Comment on above: Order Comment: Speci men Type: BLOOD SPECIMENOrdering Facility: [facility] Address: [address] [place] [address] Performed By: #### C ONABO ####[facility] BLOOD BANKIA [id number] [address] [address] [place] CONSULTon 11-23-2024 CONSULT Normal [facility] CONSULT Normal [facility] Comprehensive metabolic 2000 panelon 11-23-2024 Albumin [Mass/Vol] 3.7 g/dL Low 3.9-4.9 [facility] Comment on above: Order Comment: Speci men Type: BLOOD SPECIMENOrdering Facility: [facility] Address: [address] [place] [address] Performed By: #### 2 777-1, LIPNF, 2276-4, 66199-5, 23865-1, 06828-7 ####[facility] [id number] [place] [id number] [place] ALP [Catalytic activity/Vol] 68 U/L Normal 38-113 [facility] Comment on above: Order Comment: Speci men Type: BLOOD SPECIMENOrdering Facility: [facility] Address: [address] [place] [address] Performed By: #### 2 777-1, LIPNF, 6-4, 72145-1, 87695-3, 85169-8 ####[facility]IA [id number] [address] [address] [place] ALT [Catalytic activity/Vol] 43 U/L Normal 10-54 [facility] Comment on above: Order Comment: Speci men Type: BLOOD SPECIMENOrdering Facility: [facility] Address: [address] [place], [place] [address] Performed By: #### 2 777-1, LIPNF, 2276-4, 77577-9, 67264-9, 85012-4 ####[facility] [id number] [address] [address] [place] Anion gap [Moles/Vol] 23 mmol/L High 8-15 [facility] Comment on above: Order Comment: Speci men Type: BLOOD SPECIMENOrdering Facility: [facility] Address: [address] [place], [place] [address] Performed By: #### 2 777-1, LIPNF, 2275-4, 54295-0, 32852-9, 29698-3 ####[facility] LABCLIA [id number] [address] [place] [address] [place] AST [Catalytic activity/Vol] 17 U/L Normal 14-40 [facility] Comment on above: Order Comment: Speci men Type: BLOOD SPECIMENOrdering Facility: [facility] Address: [address] [place], [place] [address] Performed By: #### 2 777-1, LIPNF, 2275-4, 12023-7, 96345-9, 71766-0 ####[facility] LABCLIA [id number] [address] [place] [address] [place] Bilirubin [Mass/Vol] 0.2 mg/dL Normal 0.2-1.3 [facility] Comment on above: Order Comment: Speci men Type: BLOOD SPECIMENOrdering Facility: [facility] Address: [address] [place] [address] Performed By: #### 2 777-1, LIPNF, 6-4, 72234-1, 22004-4, 39305-6 ####[facility]CL[facility] [id number] [address] [place] [address] [place] Calcium [Mass/Vol] 9.3 mg/dL Normal 8.5-10.2 [facility] Comment on above: Order Comment: Speci men Type: BLOOD SPECIMENOrdering Facility: [facility] Address: [address] [place], [place] [address] Performed By: #### 2 777-1, LIPNF, 6-4, 45195-8, 58557-6, 76052-5 ####[facility] LABCLIA [id number] [address] [place] [address] [place] Chloride [Moles/Vol] 86 mmol/L Low 98-107 [facility] Comment on above: Order Comment: Speci men Type: BLOOD SPECIMENOrdering Facility: [facility] Address: [address] [place] [address] Performed By: #### 2 777-1, LIPNF, 2276-4, 34795-0, 08185-4, 76563-7 ####[facility] [id number] [place] [id number] [place] CO2 [Moles/Vol] 21 mmol/L Low 22-30 [facility] Comment on above: Order Comment: Speci men Type: BLOOD SPECIMENOrdering Facility: [facility] Address: [address] [place] [address] Performed By: #### 2 777-1, LIPNF, 2276-4, 28924-1, 19103-2, 86864-5 ####[facility] [id number] [place] [address] [place] Creatinine [Mass/Vol] 7.48 mg/dL High 0.73-1.22 [facility] Comment on above: Order Comment: Speci men Type: BLOOD SPECIMENOrdering Facility: [facility] Address: [address] [place] [address] Performed By: #### 2 777-1, LIPNF, 2276-4, 46582-0, 74262-0, 72877-4 ####[facility] [id number] [place] [id number] [place] Creatinine and Glomerular filtration rate.predicted panel (S/P/Bld) 7 mL/min/1.73m??? Low >=60 [facility] Comment on above: Order Comment: Speci men Type: BLOOD SPECIMENOrdering Facility: [facility] Address: [address] [place] [address] Result Comment: Tessa mated Glomerular Filtration Rate [...] Performed By: #### 2 777-1, LIPNF, 2276-4, 05064-8, 42839-5, 23641-2 ####[facility] LABCLIA [id number] [address] [address] [place] Glucose [Mass/Vol] 215 mg/dL High 74-99 [facility] Comment on above: Order Comment: Speci men Type: BLOOD SPECIMENOrdering Facility: [facility] Address: [address] [place] [address] Result Comment: The [place] [employer] (ADA) provides guidance for cutoff [...] Standards of Medical Care in Diabetes 2016, [place] [employer] Association. Diabetes Care. 2016.39(Suppl 1). Performed By: #### 2 777-1, LIPNF, 6-4, 60371-5, 98808-2, 74867-3 ####[facility]CLIA [id number] [address] [address] [place] Potassium [Moles/Vol] 5.4 mmol/L High 3.7-5.1 [facility] Comment on above: Order Comment: Speci men Type: BLOOD SPECIMENOrdering Facility: [facility] Address: [address] [place] [address] Performed By: #### 2 777-1, LIPNF, 6-4, 35768-4, 94381-5, 87186-4 ####[facility] [id number] [address] [address] [place] Protein [Mass/Vol] 6.9 g/dL Normal 6.3-8.0 [facility] Comment on above: Order Comment: Speci men Type: BLOOD SPECIMENOrdering Facility: [facility] Address: [address] [place] [address] Performed By: #### 2 777-1, LIPNF, 2276-4, 11137-6, 98251-5, 81222-4 ####[facility] LABIA [id number] [place] [address] [place] Sodium [Moles/Vol] 130 mmol/L Low 136-144 [facility] Comment on above: Order Comment: Speci men Type: BLOOD SPECIMENOrdering Facility: [facility] Address: [address] [place] [address] Performed By: #### 2 777-1, LIPNF, 2276-4, 25273-0, 41229-8, 77318-3 ####[facility] LABIA [id number] [place] [address] [place] Urea nitrogen [Mass/Vol] 100 mg/dL High 9-24 [facility] Comment on above: Order Comment: Speci men Type: BLOOD SPECIMENOrdering Facility: [facility] Address: [address] [place] [address] Performed By: #### 2 777-1, LIPNF, 2276-4, 80151-2, 19171-1, 53855-1 ####[facility]IA [id number] [place] [id number] [place] ECG COMPLETEon 11-23-2024 ECG COMPLETE Normal [facility] [id number] 11-23-2024 ECG01 Normal [facility] ECHO LIMITEDon 11-23-2024 ECHO LIMITED Normal [facility] ECHO LIMITED Normal [facility] Ferritin SerPl-mCncon 2024 Ferritin [Mass/Vol] 1473.0 ng/mL High 30.3-565.7 [facility] Comment on above: Order Comment: Speci men Type: BLOOD SPECIMENOrdering Facility: [facility] Address: [address] [place] [address] Performed By: #### 2 777-1, LIPNF, 2276-4, 88209-0, 19730-8, 45896-4 ####[facility] [id number] [place] [id number] [place] Gas and Carbon monoxide pane l (BldV)on 11-23-2024 BASE DEFICIT, VENOUS -1 mmol/L Normal -2-0 [facility] Comment on above: Order Comment: Speci men Type: VENOUS BLOOD SPECIMENOrdering Facility: [facility] Address: [address] [place] [address] Performed By: #### 2 4344-4 ####[facility] [id number] [place] [address] [place] Body temperature 98.6 [degF] Normal [facility] Comment on above: Order Comment: Speci men Type: VENOUS BLOOD SPECIMENOrdering Facility: [facility] Address: [address] [place] [address] Performed By: #### 2 4344-4 ####[facility] [id number] [place] [address] [place] Calcium.ionized (Bld) [Mass/Vol] 1.14 mmol/L Normal 1.08-1.30 [facility] Comment on above: Order Comment: Speci men Type: VENOUS BLOOD SPECIMENOrdering Facility: [facility] Address: [address] [place] [address] Performed By: #### 2 4344-4 ####[facility]CL[facility] [id number] [place] [address] [place] Calcium.ionized adjusted to pH 7.4 (BldA) [Moles/Vol] 1.07 mmol/L Low 1.08-1.30 [facility] Comment on above: Order Comment: Speci men Type: VENOUS BLOOD SPECIMENOrdering Facility: [facility] Address: [address] [place] [address] Performed By: #### 2 4344-4 ####[facility] LABIA [id number] [place] [address] [place] Carboxyhemoglobin (BldV) [Mass fraction] 0.8 % Normal 0.0-2.0 [facility] Comment on above: Order Comment: Speci men Type: VENOUS BLOOD SPECIMENOrdering Facility: [facility] Address: [address] [place] [address] Result Comment: Carb oxyhemoglobin Reference Range for Smokers: 2.0-8.0% Performed By: #### 2 4344-4 ####[facility] LABIA [id number] [place] [address] [place] CO2 (BldV) [Partial pressure] 56 mm[Hg] High 42-55 [facility] Comment on above: Order Comment: Speci men Type: VENOUS BLOOD SPECIMENOrdering Facility: [facility] Address: [address] [place] [address] Performed By: #### 2 4344-4 ####[facility] LABIA [id number] [place] [address] [place] Glucose [Mass/Vol] 228 mg/dL High 60-105 [facility] Comment on above: Order Comment: Speci men Type: VENOUS BLOOD SPECIMENOrdering Facility: [facility] Address: [address] [place] [address] Performed By: #### 2 4344-4 ####[facility] LABIA [id number] [place] [address] [place] HCO3 (Bld) [Moles/Vol] 26 mmol/L Normal 24-[address] [facility] Comment on above: Order Comment: Speci men Type: VENOUS BLOOD SPECIMENOrdering Facility: [facility] Address: [address] [place] [address] Performed By: #### 2 4344-4 ####[facility] [id number] [place] [address] [place] Hematocrit (Bld) [Volume fraction] 34.4 % Low 39.0-51.0 [facility] Comment on above: Order Comment: Speci men Type: VENOUS BLOOD SPECIMENOrdering Facility: [facility] Address: [address] [place] [address] Performed By: #### 2 4344-4 ####[facility] [id number] [place] [address] [place] Hemoglobin (Bld) [Mass/Vol] 11.2 g/dL Low 13.0-17.0 [facility] Comment on above: Order Comment: Speci men Type: VENOUS BLOOD SPECIMENOrdering Facility: [facility] Address: [address] [place] [address] Performed By: #### 2 4344-4 ####[facility] LABIA [id number] [place] [address] [place] Lactate [Moles/Vol] 0.9 mmol/L Normal 0.5-2.2 [facility] Comment on above: Order Comment: Speci men Type: VENOUS BLOOD SPECIMENOrdering Facility: [facility] Address: [address] [place] [address] Performed By: #### 2 4344-4 ####[facility]CL[facility] [id number] [place] [address] [place] Methemoglobin (Bld) [Mass fraction] 1.2 % Normal 0.0-1.5 [facility] Comment on above: Order Comment: Speci men Type: VENOUS BLOOD SPECIMENOrdering Facility: [facility] Address: [address] [place] [address] Performed By: #### 2 4344-4 ####[facility]CL[facility] [id number] [place] [address] [place] O2 THERAPY RA=Room Air Normal [facility] Comment on above: Order Comment: Speci men Type: VENOUS BLOOD SPECIMENOrdering Facility: [facility] Address: [address] [place] [address] Performed By: #### 2 4344-4 ####[facility] LABIA [id number] [place] [address] [place] Oxygen (BldV) [Partial pressure] 24 mm[Hg] Low 35-45 [facility] Comment on above: Order Comment: Speci men Type: VENOUS BLOOD SPECIMENOrdering Facility: [facility] Address: [address] [place] [address] Performed By: #### 2 4344-4 ####[facility] LABIA [id number] [place] [address] [place] Oxygen saturation in Venous blood 28 % Low 60-85 [facility] Comment on above: Order Comment: Speci men Type: VENOUS BLOOD SPECIMENOrdering Facility: [facility] Address: [address] [place] [address] Performed By: #### 2 4344-4 ####[facility]IA [id number] [place] [address] [place] Oxyhemoglobin (BldV) [Mass fraction] 27 % Low 60-85 [facility] Comment on above: Order Comment: Speci men Type: VENOUS BLOOD SPECIMENOrdering Facility: [facility] Address: [address] [place] [address] Performed By: #### 2 4344-4 ####[facility]IA [id number] [place] [address] [place] pH (BldV) 7.29 [pH] Low 7.32-7.42 [facility] Comment on above: Order Comment: Speci men Type: VENOUS BLOOD SPECIMENOrdering Facility: [facility] Address: [address] [place] [address] Performed By: #### 2 4344-4 ####[facility]CL[facility] [id number] [place] [address] [place] Potassium [Moles/Vol] 5.3 mmol/L High 3.5-5.0 [facility] Comment on above: Order Comment: Speci men Type: VENOUS BLOOD SPECIMENOrdering Facility: [facility] Address: [address] [place] [address] Performed By: #### 2 4344-4 ####[facility] LABIA [id number] [place] [address] [place] Sodium [Moles/Vol] 128 mmol/L Low 136-144 [facility] Comment on above: Order Comment: Speci men Type: VENOUS BLOOD SPECIMENOrdering Facility: [facility] Address: [address] [place] [address] Performed By: #### 2 4344-4 ####[facility]IA [id number] [place] [address] [place] HBV surface Ab Ql (S)on HBV surface Ab Qn (S) 104.84 mIU/mL Normal [facility] Comment on above: Order Comment: Speci men Type: BLOOD SPECIMENOrdering Facility: [facility] Address: [address] [place] [address] Result Comment: <8 m IU/mL: No serological evidence of immunity to Hepatitis B Virus.>/= 8 to <12 mIU/mL: No serological evidence of immunity to Hepatitis B Virus.>/= 12 mIU/mL: Consistent with serological evidence of immunity to Hepatitis B Virus. Performed By: #### 5 195-3, 88651-2 ####[facility]CL[facility] [id number] [address] OF [facility] HBV surface Ab Ser Qlon HBV surface Ab Ql (S) Positive Normal [facility] Comment on above: Order Comment: Speci men Type: BLOOD SPECIMENOrdering Facility: [facility] Address: [address] [place] [address] Result Comment: Cons istent with serological evidence of immunity to Hepatitis B Virus. Performed By: #### 5 195-3, 12011-0 ####[facility]IA [id number] [address] [place] HBV surface Ag Ser Qlon HBV surface Ag Ql (S) Negative Normal Negative [facility] Comment on above: Order Comment: Ruddyi ash Type: BLOOD SPECIMENOrdering Facility: [facility] Address: [address] [place] [address] Performed By: #### 5 195-3, 47705-6 ####[facility] [id number] [place] [address] [place] HISTORY PHYSICALon HISTORY PHYSICAL Normal [facility] HbA1c (Bld)on 11-23-2024 Average glucose Estimated from glycated hemoglobin (Bld) [Mass/Vol] 154 mg/dL Normal [facility] Comment on above: Order Comment: Speci men Type: BLOOD SPECIMENOrdering Facility: [facility] Address: [address] [place] [address] Result Comment: eAG: (Estimated average glucose) is a calculated value from HgbA1c and is billing customer service representative of the average blood glucose level in the last 2-3 month period. Performed By: #### 5 5454-3, 72602-8 ####[facility] LABIA [id number] [place] [address] [place] HbA1c (Bld) [Mass fraction] 7.0 % High 4.3-5.6 [facility] Comment on above: Order Comment: Speci men Type: BLOOD SPECIMENOrdering Facility: [facility] Address: [address] [place] [address] Result Comment: Amer [place] Diabetes Association guidelines indicate that patients with HgbA1c in the range 5.7-6.4% are at increased risk for development of diabetes, and intervention by lifestyle modification may be beneficial. HgbA1c greater or equal to 6.5% is considered diagnostic of diabetes. Performed By: #### 5 5454-3, 42522-7 ####[facility]CL[facility] [id number] [place] [address] [place] Iron and Iron binding capaci ty panelon 11-23-2024 Iron [Mass/Vol] 105 ug/dL Normal 41-186 [facility] Comment on above: Order Comment: Speci men Type: BLOOD SPECIMENOrdering Facility: [facility] Address: [address] [place] [address] Performed By: #### 2 777-1, LIPNF, 2276-4, 50831-3, 50182-6, 04493-8 ####[facility]CL[facility] [id number] [place] [address] [place] Iron binding capacity [Mass/Vol] 179 ug/dL Low 232-386 [facility] Comment on above: Order Comment: Speci men Type: BLOOD SPECIMENOrdering Facility: [facility] Address: [address] [place] [address] Performed By: #### 2 777-1, LIPNF, 6-4, 26009-9, 02416-4, 43295-2 ####[facility]CL[facility] [id number] [address] [address] [place] Iron/TIBC [Molar ratio] 58.7 % High 15.0-57.0 C [facility] Comment on above: Order Comment: Speci men Type: BLOOD SPECIMENOrdering Facility: [facility] Address: [address] [place] [address] Performed By: #### 2 777-1, LIPNF, 2276-4, 95309-4, 91943-6, 47338-1 ####[facility]CL[facility] [id number] [place] [address] [place] LIPID PANEL, NONFASTINGon Cholesterol [Mass/Vol] 113 mg/dL Normal <[address] [facility] Comment on above: Order Comment: Speci men Type: BLOOD SPECIMENOrdering Facility: [facility] Address: [address] [place] [address] Result Comment: <200 mg/dL, Desirable 200-239 mg/dL, Borderline high>239 mg/dL, High Performed By: #### 2 777-1, LIPNF, 6-4, 49207-8, 11498-4, 59138-3 ####[facility]CL[facility] [id number] [place] [id number] [place] HDL CHOLESTEROL, NF 48 mg/dL Normal >39 [facility] Comment on above: Order Comment: Speci men Type: BLOOD SPECIMENOrdering Facility: [facility] Address: [address] [place] [address] Result Comment: 40-5 9 mg/dL, Acceptable>59 mg/dL, High: Negative risk factor for coronary heart disease<40 mg/dL, Low: Positive risk factor for coronary heart disease Performed By: #### 2 777-1, LIPNF, 6-4, 06197-9, 57713-7, 52592-1 ####[facility] [id number] [address] [place] LDL CHOLESTEROL CALCULATED, NF 56 mg/dL Normal <100 [facility] Comment on above: Order Comment: Speci men Type: BLOOD SPECIMENOrdering Facility: [facility] Address: [address] [place] [address] Result Comment: <100 mg/dL, Optimal 100-129 mg/dL, Near optimal/above optimal 130-159 mg/dL, Borderline high 160-189 mg/dL, High>189 mg/dL, Very highSecondary prevention optimal LDL Cholesterol levels are recommended to be <70 mg/dLLDL cholesterol is calculated using the Nice-NIH equation. Performed By: #### 2 777-1, LIPNF, 6-4, 24438-4, 05481-1, 48151-7 ####[facility] [id number] [address] [place] [address] [facility] LDL/HDL RATIO, NF 1.17 mg/dL Normal <2.54 [facility] Comment on above: Order Comment: Speci men Type: BLOOD SPECIMENOrdering Facility: [facility] Address: [address] [place] [address] Result Comment: Refe rence:1. National Cholesterol Education Program ATP III Guideline At-A-Glance Quick Desk Reference: National Heart, Lung, and Blood [place]. National Institutes of Health. 2001: NIH Publication No. 01-3305.2. An International Atherosclerosis Society position paper: global recommendations for the management of dyslipidemia: executive summary, Atherosclerosis. 2014: 232(2):410-413. Performed By: #### 2 777-1, LIPNF, 6-4, 95844-2, 63723-2, 99741-9 ####[facility] [id number] [address] [place] [address] [place] [facility] NON HDL CHOL, NF 65 mg/dL Normal <130 [facility] Comment on above: Order Comment: Speci men Type: BLOOD SPECIMENOrdering Facility: [facility] Address: [address] [place] [address] Result Comment: <130 mg/dL, Optimal 130-159 mg/dL, Near optimal/above optimal 160-189 mg/dL, Borderline high 190-219 mg/dL, High>219 mg/dL, Very highSecondary prevention optimal non HDL Cholesterol levels are recommended to be <100 mg/dL Performed By: #### 2 777-1, LIPNF, 2276-4, 13782-6, 41069-2, 24760-4 ####[facility] [id number] [address] [place] [address] [place] T CHOL/HDL RATIO NF 2.35 mg/dL Normal <5.10 [facility] Comment on above: Order Comment: Speci men Type: BLOOD SPECIMENOrdering Facility: [facility] Address: [address] [place] [address] Performed By: #### 2 777-1, LIPNF, 2276-4, 47617-8, 58856-4, 70261-1 ####[facility]CL[facility] [id number] [place] [address] [place] TRIGLYCERIDES, NF 33 mg/dL Normal <150 [facility] Comment on above: Order Comment: Speci men Type: BLOOD SPECIMENOrdering Facility: [facility] Address: [address] [place] [address] Result Comment: <150 mg/dL, Normal 150-199 mg/dL, Borderline high 200-499 mg/dL, High>499 mg/dL, Very high Performed By: #### 2 777-1, LIPNF, 2276-4, 24625-9, 77003-7, 55983-6 ####[facility] [id number] [place] [address] [place] VLDL CHOLESTEROL, NF 5 mg/dL Normal <30 [facility] Comment on above: Order Comment: Speci men Type: BLOOD SPECIMENOrdering Facility: [facility] Address: [address] [place] [address] Performed By: #### 2 777-1, LIPNF, 2276-4, 47502-8, 13537-7, 38628-4 ####[facility] [id number] [place] [id number] [place] Magnesium SerPl-mCncon 11-23 Magnesium [Mass/Vol] 2.7 mg/dL High 1.7-2.3 [facility] Comment on above: Order Comment: Speci men Type: BLOOD SPECIMENOrdering Facility: [facility] Address: [address] [place] [address] Performed By: #### 2 777-1, LIPNF, 2276-4, 57793-4, 38700-0, 15520-0 ####[facility] [id number] [place] [address] [place] PT panel Coag (PPP)on 2024 INR Coag (PPP) [Relative time] 1.2 {INR} Normal 0.9-1.3 [facility] Comment on above: Order Comment: Speci men Type: BLOOD SPECIMENOrdering Facility: [facility] Address: [address] [place] [address] Result Comment: Ching min K Antagonist (VKA) Therapeutic Range: INR 2 to 3 (Target INR of 2.5)Note: For patients treated with VKA drugs, such as warfarin, the [place] [employer] 2012 Guideline recommends [...] 3).Ana Laura GH, et al. Chest 2012, 141:7S-47SNishimanay RA, et al. [facility] 2017, 70: 252-289 Performed By: #### 3 4528-0, 80208-6 ####[facility] [id number] [address] [address] [place] PT Coag (PPP) [Time] 12.6 s Normal 9.7-13.0 [facility] Comment on above: Order Comment: Speci men Type: BLOOD SPECIMENOrdering Facility: [facility] Address: [address] [place] [address] Performed By: #### 3 4528-0, 78537-1 ####[facility] [id number] [place] [address] [place] Phosphate SerPl-mCncon 11-23 Phosphate [Mass/Vol] 10.4 mg/dL High 2.7-4.8 [facility] Comment on above: Order Comment: Speci men Type: BLOOD SPECIMENOrdering Facility: [facility] Address: [address] [place] [address] Performed By: #### 2 777-1, LIPNF, 2276-4, 22652-1, 29990-9, 22096-5 ####[facility] [id number] [place] [address] [place] STAPHYLOCOCCUS AUREUS AND MR SA SCREEN, PCR, NASALon 11-23-2024 S. aureus and MRSA panel EZEKIEL+probe (Nose) Not detected Normal Not Detected [facility] Comment on above: Order Comment: Speci men Type: SWABOrdering Facility: [facility] Address: [address] [place] [address] Performed By: #### S APCR ####[facility] [id number] [place] [address] [place] T4 Free SerPl-mCncon 025 Free T4 [Mass/Vol] 1.0 ng/dL Normal 0.9-1.7 [facility] Comment on above: Order Comment: Speci men Type: BLOOD SPECIMENOrdering Facility: [facility] Address: [address] [place] [address] Performed By: #### 1 1065-0, 3024-7, 3016-3 ####[facility] [id number] [place] [address] [place] THERAPY NTon 11-23-2024 THERAPY NT Normal [facility] TSH SerPl-aCncon 11-23-2024 TSH Qn 1.490 m[IU]/L Normal 0.270-4.200 [facility] Comment on above: Order Comment: Speci men Type: BLOOD SPECIMENOrdering Facility: [facility] Address: [address] [place], [place] [address] Performed By: #### 1 1065-0, 3024-7, 3016-3 ####[facility] [id number] [address] [address] [place] TYPE + SCREENon 11-23-2024 ABO A Normal [facility] Comment on above: Order Comment: Speci men Type: BLOOD SPECIMENOrdering Facility: [facility] Address: [address] [place] [address] Performed By: #### T SCR ####[facility] [id number] [place] [address] [place] Rh Nom (Bld) Positive Normal [facility] Comment on above: Order Comment: Speci men Type: BLOOD SPECIMENOrdering Facility: [facility] Address: [address] [place] [address] Performed By: #### T SCR ####[facility] B[facility] BANKCLIA [id number] [place] [address] [place] TYPE AND SCREEN EXPIRATION 11/26/2024 23:59 Normal [facility] Comment on above: Order Comment: Speci men Type: BLOOD SPECIMENOrdering Facility: [facility] Address: [address] [place] [address] Performed By: #### T SCR ####[facility] [id number] [address] [address] [place] Urea nitrogen post dialysis [Mass/Vol]on 11-23-2024 UREA REDUCTION RATIO WITH BUNPR 67 % Normal [facility] Comment on above: Order Comment: Speci men Type: BLOOD SPECIMENOrdering Facility: [facility] Address: [address] [place] [address] Performed By: #### 1 1064-3 ####[facility] [id number] [place] [id number] [place] aPTT PPPon 11-23-2024 aPTT Coag (PPP) [Time] 33.5 s High 23.0-32.[address] [facility] Comment on above: Order Comment: Speci men Type: BLOOD SPECIMENOrdering Facility: [facility] Address: [address] [place] [address] Performed By: #### 3 4528-0, 26376-8 ####[facility] LABCLIA [id number] [place] [id number] [place] 12 Lead EKGon 11-22-20[address] [facility] [address] [facility] Absolute lymphocyte countOrd ered By: Earl Desai on 11-22-2024 Lymphocytes Auto (Unsp spec) [#/Vol] 1.93 10*3/uL 0.83-4.51 [facility] Activated partial thrombopla stin time (aPTT) in platelet poor plasma by coagulation aOrdered By: Earl Desai on 11-22-2024 aPTT Coag (PPP) [Time] 34.7 s 24.1-36.2 [facility] Anion gap in Serum or Plasma Ordered By: Earl Desai on 11-22-2024 Anion gap [Moles/Vol] 17 mmol/L High 5-15 [facility] Automated lymphocyte count a s percentage of total leukocytesOrdered By: Earl Desai on 11-22-2024 Lymphocytes/100 WBC Auto (Unsp spec) 19.3 % 19-41 [facility] BUN/creatinine ratioOrdered By: Earl Desai on 11-22-2024 Urea nitrogen/Creatinine [Mass ratio] 12.4 mg/mg - [facility] Basic Metabolic Profile (BMP )on 11-22-2024 BUN/CRE 12.4 RATIO Normal - [facility] Comment on above: Performed By: #### L 300.4310, L300.3900, L501.4021, L100.0100, L501.5200, L500.2500, L503.7505 ####[facility] [address] [place], [address] Calcium [Mass/Vol] 8.8 mg/dL Normal 7.6-11.0 [facility] Comment on above: Performed By: #### L 300.4310, L300.3900, L501.4021, L100.0100, L501.5200, L500.2500, L503.7505 ####[facility] [address] [place], [address] Chloride [Moles/Vol] 88 mmol/L Low 98-108 [facility] Comment on above: Performed By: #### L 300.4310, L300.3900, L501.4021, L100.0100, L501.5200, L500.2500, L503.7505 ####[facility] [address] [place], [address] CO2 [Moles/Vol] 25.3 mmol/L Normal 21.0-32.0 [facility] Comment on above: Performed By: #### L 300.4310, L300.3900, L501.4021, L100.0100, L501.5200, L500.2500, L503.7505 ####[facility] [address] [place], [address] Creatinine [Mass/Vol] 6.55 mg/dL High 0.70-1.20 [facility] Comment on above: Performed By: #### L 300.4310, L300.3900, L501.4021, L100.0100, L501.5200, L500.2500, L503.7505 ####[facility] [address] [place], [address] ECRCL 8.98 ml/min Invalid Interpretation Code 50-250 [facility] Comment on above: Performed By: #### L 300.4310, L300.3900, L501.4021, L100.0100, L501.5200, L500.2500, L503.7505 ####[facility] [address] [place], [address] GAP 17 High 5-15 [facility] Comment on above: Performed By: #### L 300.4310, L300.3900, L501.4021, L100.0100, L501.5200, L500.2500, L503.7505 ####[facility] [address] [place], [address] GFR/1.73 sq M.predicted among non-blacks MDRD (S/P/Bld) [Vol rate/Area] 8 mL/min/{1.73_m2} Low >60 [facility] Comment on above: Result Comment: mL/m in/1.73m2 CKD-EPI Creatinine Equation (2020) Performed By: #### L 300.4310, L300.3900, L501.4021, L100.0100, L501.5200, L500.2500, L503.7505 ####[facility] [address] [place], [address] Glucose [Mass/Vol] 249 mg/dL High 70-99 [facility] Comment on above: Performed By: #### L 300.4310, L300.3900, L501.4021, L100.0100, L501.5200, L500.2500, L503.7505 ####[facility] [address] [place], [address] Potassium [Moles/Vol] 5.2 mmol/L High 3.3-5.1 [facility] Comment on above: Performed By: #### L 300.4310, L300.3900, L501.4021, L100.0100, L501.5200, L500.2500, L503.7505 ####[facility] [address] [place], [address] Sodium [Moles/Vol] 130 mmol/L Low 133-145 [facility] Comment on above: Performed By: #### L 300.4310, L300.3900, L501.4021, L100.0100, L501.5200, L500.2500, L503.7505 ####[facility] [address] [place], [address] Urea nitrogen [Mass/Vol] 81 mg/dL High 4-19 [facility] Comment on above: Performed By: #### L 300.4310, L300.3900, L501.4021, L100.0100, L501.5200, L500.2500, L503.7505 ####[facility] [address] [place], [address] Basophil percentageOrdered B y: Earl Desai on 11-22-2024 Basophils/100 WBC (Bld) 0.5 % 0-1 [facility] CBC W/Diff, Automatedon - Absolute Lymph 1.93 X10 3/uL Normal 0.83-4.51 [facility] Comment on above: Performed By: #### L 300.4310, L300.3900, L501.4021, L100.0100, L501.5200, L500.2500, L503.7505 ####[facility] [address] [place], [address] Absolute Neut 6.8 X10 3/uL Normal 2.0-7.7 [facility] Comment on above: Performed By: #### L 300.4310, L300.3900, L501.4021, L100.0100, L501.5200, L500.2500, L503.7505 ####[facility] [address] [place], [address] Basophils/100 WBC (Bld) 0.5 % Normal 0-1 [facility] Comment on above: Performed By: #### L 300.4310, L300.3900, L501.4021, L100.0100, L501.5200, L500.2500, L503.7505 ####[facility] [address] [place], [address] Eosinophils/100 WBC (Bld) 2.6 % Normal 0-5 [facility] Comment on above: Performed By: #### L 300.4310, L300.3900, L501.4021, L100.0100, L501.5200, L500.2500, L503.7505 ####[facility] [address] [place], [address] Erythrocyte distribution width (RBC) [Ratio] 16.4 % High 11.6-14.6 [facility] Comment on above: Performed By: #### L 300.4310, L300.3900, L501.4021, L100.0100, L501.5200, L500.2500, L503.7505 ####[facility] [address] [place], [address] Hematocrit (Bld) [Volume fraction] 34.9 % Low 40-54 [facility] Comment on above: Performed By: #### L 300.4310, L300.3900, L501.4021, L100.0100, L501.5200, L500.2500, L503.7505 ####[facility] [address] [place], [address] Hemoglobin (Bld) [Mass/Vol] 10.9 g/dL Low 13.0-16.5 [facility] Comment on above: Performed By: #### L 300.4310, L300.3900, L501.4021, L100.0100, L501.5200, L500.2500, L503.7505 ####[facility] [address] [place], [address] IG% 0.500 Normal 0.0-0.9 [facility] Comment on above: Result Comment: IG% - Immature Granulocytes (promyelocytes, myelocytes andmetamyelocytes) > 1% indicates that a LEFT SHIFT is Present. Performed By: #### L 300.4310, L300.3900, L501.4021, L100.0100, L501.5200, L500.2500, L503.7505 ####[facility] [address] [place], [address] Lymphocytes/100 WBC (Bld) 19.3 % Normal 19-41 [facility] Comment on above: Performed By: #### L 300.4310, L300.3900, L501.4021, L100.0100, L501.5200, L500.2500, L503.7505 ####[facility] [address] [place], [address] MCH (RBC) [Entitic mass] 28.2 pg Normal 27.0-32.0 [facility] Comment on above: Performed By: #### L 300.4310, L300.3900, L501.4021, L100.0100, L501.5200, L500.2500, L503.7505 ####[facility] [address] [place], [address] MCHC (RBC) [Mass/Vol] 31.2 g/dL Low 32-36 [facility] Comment on above: Performed By: #### L 300.4310, L300.3900, L501.4021, L100.0100, L501.5200, L500.2500, L503.7505 ####[facility] [address] [place], [address] MCV (RBC) [Entitic vol] 90.2 fL Normal 80-94 [facility] Comment on above: Performed By: #### L 300.4310, L300.3900, L501.4021, L100.0100, L501.5200, L500.2500, L503.7505 ####[facility] [address] [place], [address] Monocytes/100 WBC (Bld) 8.8 % Normal 0-10 [facility] Comment on above: Performed By: #### L 300.4310, L300.3900, L501.4021, L100.0100, L501.5200, L500.2500, L503.7505 ####[facility] [address] [place], [address] Neutrophils/100 WBC (Bld) 68.3 % Normal 47-70 [facility] Comment on above: Performed By: #### L 300.4310, L300.3900, L501.4021, L100.0100, L501.5200, L500.2500, L503.7505 ####[facility] [address] [place], [address] Nucleated RBC (Bld) [#/Vol] 0 10*3/uL Normal 0-5 [facility] Comment on above: Performed By: #### L 300.4310, L300.3900, L501.4021, L100.0100, L501.5200, L500.2500, L503.7505 ####[facility] [address] [place], [address] Platelet mean volume (Bld) [Entitic vol] 11.7 fL Normal 6.2-12.0 [facility] Comment on above: Performed By: #### L 300.4310, L300.3900, L501.4021, L100.0100, L501.5200, L500.2500, L503.7505 ####[facility] [address] [place], [address] Platelets (Bld) [#/Vol] 161 10*3/uL Normal 150-450 [facility] Comment on above: Performed By: #### L 300.4310, L300.3900, L501.4021, L100.0100, L501.5200, L500.2500, L503.7505 ####[facility] [address] [place], [address] RBC (Bld) [#/Vol] 3.87 10*6/uL Low 4.6-6.2 [facility] Comment on above: Performed By: #### L 300.4310, L300.3900, L501.4021, L100.0100, L501.5200, L500.2500, L503.7505 ####[facility] [address] [place], [address] RDW SD 53.6 fl High 35.1-43.9 [facility] Comment on above: Performed By: #### L 300.4310, L300.3900, L501.4021, L100.0100, L501.5200, L500.2500, L503.7505 ####[facility] [address] [place], [address] WBC (Bld) [#/Vol] 10.0 10*3/uL Normal 4.4-11.0 [facility] Comment on above: Performed By: #### L 300.4310, L300.3900, L501.4021, L100.0100, L501.5200, L500.2500, L503.7505 ####[facility] [address] [place], [address] Carbon dioxide, total [Moles /volume] in Central venous bloodOrdered By: Earl Desai on 11-22-2024 CO2 [Moles/Vol] 25.3 mmol/L 21.0-32.0 [facility] Chest 1 View (Portable)on Chest 1 View (Portable) Normal [facility] Chloride assayOrdered By: Sulaiman Desai on 11-22-2024 Chloride [Moles/Vol] 88 mmol/L Low 98-108 [facility] Emergency Department Summary on 11-22-2024 [address] [facility] Eosinophil percentageOrdered By: aErl Desai on 11-22-2024 Eosinophils/100 WBC (Bld) 2.6 % 0-5 [facility] Erythrocyte distribution wid th ratioOrdered By: Earl Desai on 11-22-2024 Erythrocyte distribution width (RBC) [Ratio] 16.4 % High 11.6-14.6 [facility] Erythrocyte distribution wid th standard deviationOrdered By: Earl Desai on 11-22-2024 Erythrocyte distribution width (RBC) [Ratio] 53.6 fl High 35.1-43.9 [facility] Glomerular filtration rate ( GFR) estimation/1.73 sq m using serum, plasma, or whole bOrdered By: Earlyehuda Desai on 11-22-2024 GFR/1.73 sq M.predicted among non-blacks MDRD (S/P/Bld) [Vol rate/Area] 8 mL/min/{1.73_m2} Low >60 [facility] Hematocrit Auto (Bld) [Volum e fraction]Ordered By: Earl Desai on 11-22-2024 Hematocrit (Bld) [Volume fraction] 34.9 % Low 40-54 [facility] Hemoglobin measurementOrdere d By: Earl Desai on 11-22-2024 Hemoglobin (Bld) [Mass/Vol] 10.9 g/dL Low 13.0-16.5 [facility] Immature granulocytes/100 WB C Auto (Bld)Ordered By: Earl Desai on 11-22-2024 Immature granulocytes/100 WBC (Bld) 0.500 % 0.0-0.9 [facility] L499.0042on 11-22-2024 Trop T High Sen 127 ng/L Invalid Interpretation Code <=22 [facility] Comment on above: Result Comment: Jack ical Result(s) Called at: 11-22-24 11:39 TO TAO by:??TYLER MENDENHALL Results read back by same. Performed By: #### L 499.0042 ####[facility] [address] [place], [address] L499.0043on 11-22-2024 Trop T High Sen Normal <=22 [facility] Comment on above: Result Comment: Solomon eason via OM: Ordered Performed By: #### L 499.0043 ####[facility] [address] [place], [address] L501.4021on 11-22-2024 Trop T High Sen 129 ng/L Invalid Interpretation Code <=22 [facility] Comment on above: Result Comment: Crit ical Result(s) Called at: 11/22/2024-10:17 by: Keily to Macey Steinberg.??Results read back by same. Performed By: #### L 300.4310, L300.3900, L501.4021, L100.0100, L501.5200, L500.2500, L503.7505 ####[facility] [address] [place], [address] L503.7505on 11-22-2024 Natriuretic peptide B (Bld) [Mass/Vol] 01521 pg/mL High <=1800 [facility] Comment on above: Result Comment: Hear t Failure Unlikely: < 300 pg/mLHeart Failure Likely< 50 Years: > 450 pg/mL50-75 Years: > 900 pg/mL>75 Years: > 1800 pg/mL Performed By: #### L 300.4310, L300.3900, L501.4021, L100.0100, L501.5200, L500.2500, L503.7505 ####[facility] [address] [place], [address] MCV (mean corpuscular volume ) determinationOrdered By: Earl Desai on 11-22-2024 MCV (RBC) [Entitic vol] 90.2 fL 80-94 [facility] Magnesiumon 11-22-2024 Magnesium [Mass/Vol] 2.6 mg/dL High 1.5-2.2 [facility] Comment on above: Performed By: #### L 300.4310, L300.3900, L501.4021, L100.0100, L501.5200, L500.2500, L503.7505 ####[facility] [address] [place], [place], [id number] Magnesium measurement (mass/ volume)Ordered By: Earl Desai on 11-22-2024 Magnesium (Unsp spec) [Mass/Vol] 2.6 mg/dL High 1.5-2.2 [facility] Mean corpuscular hemoglobin (MCH) determinationOrdered By: Earl Desai on 11-22-2024 MCH (RBC) [Entitic mass] 28.2 pg 27.0-32.0 [facility] Monocyte percentageOrdered B y: Earl Desai on 11-22-2024 Monocytes/100 WBC (Bld) 8.8 % 0-10 [facility] Natriuretic peptide.B prohor angie N-Terminal [Mass/volume] in Serum or PlasmaOrdered By: Earl Desai on 11-22-2024 Natriuretic peptide.B prohormone N-Terminal [Mass/Vol] 82771 pg/mL High <1800 [facility] Neutrophil percentageOrdered By: Earl Desai on 11-22-2024 Neutrophils/100 WBC (Bld) 68.3 % 47-70 [facility] Partial Thromboplast Timeon 11-22-2024 aPTT Coag (Bld) [Time] 34.7 s Normal 24.1-36.2 [facility] Comment on above: Performed By: #### L 300.4310, L300.3900, L501.4021, L100.0100, L501.5200, L500.2500, L503.7505 ####[facility] [address] [place], [place], [id number] Platelet countOrdered By: Sulaiman Desai on 11-22-2024 Platelets (Bld) [#/Vol] 161 10*3/uL 150-450 [facility] Potassium measurement (mass/ volume)Ordered By: Earl Desai on 11-22-2024 Potassium (Unsp spec) [Mass/Vol] 5.2 mmol/L High 3.3-5.1 [facility] Prothrombin Time w/INRon INR Coag (PPP) [Relative time] 1.3 {INR} Normal [facility] Comment on above: Performed By: #### L 300.4310, L300.3900, L501.4021, L100.0100, L501.5200, L500.2500, L503.7505 ####[facility] [address] [place], [place], [phone] PT Coag (PPP) [Time] 16.5 s High 11.7-14.9 [facility] Comment on above: Performed By: #### L 300.4310, L300.3900, L501.4021, L100.0100, L501.5200, L500.2500, L503.7505 ####[facility] [address] [place], [place], [phone] Prothrombin timeOrdered By: Earl Desai on 11-22-2024 PT Coag (PPP) [Time] 16.5 s High 11.7-14.9 [facility] RBC Auto (Bld) [#/Vol]Ordere d By: Earl Desai on 11-22-2024 RBC (Bld) [#/Vol] 3.87 10*6/uL Low 4.6-6.2 [facility] Serum creatinine measurement (mass/volume)Ordered By: Earl Desai on 11-22-2024 Creatinine [Mass/Vol] 6.55 mg/dL High 0.70-1.20 [facility] Serum glucose measurement (m ass/volume)Ordered By: Earl Desai on 11-22-2024 Glucose [Mass/Vol] 249 mg/dL High 70-99 [facility] Serum or plasma calcium lilli urement (mass/volume)Ordered By: Earl Desai on 11-22-2024 Calcium [Mass/Vol] 8.8 mg/dL 7.6-11.0 [facility] Serum or plasma urea nitroge n measurement (mass/volume)Ordered By: Earl Desai on 11-22-2024 Urea nitrogen [Mass/Vol] 81 mg/dL High 4-19 [facility] Sodium levelOrdered By: Earl Desai on 11-22-2024 Sodium [Moles/Vol] 130 mmol/L Low 133-145 [facility] Troponin T.cardiac [Mass/vol ume] in Serum or Plasma by High sensitivity methodOrdered By: Earl Desai on 11-22-2024 Troponin T.cardiac High sensitivity method [Mass/Vol] 127 ng/L Critically high <22 [facility] Troponin T.cardiac High sensitivity method [Mass/Vol] 129 ng/L Critically high <22 [facility] White blood cell (WBC) count Ordered By: Earl Desai on 11-22-2024 WBC (Bld) [#/Vol] 10.0 10*3/uL 4.4-11.0 [facility] Calculated very low density lipoprotein (VLDL) cholesterol measurementOrdered By: Nando Wiggins on 11-12-2024 Calculated very low density lipoprotein (VLDL) cholesterol measurement 5 mg/dL 5-40 [facility] LDL calc ser/plasOrdered By: Nando Wiggins on 11-12-2024 Cholesterol in LDL [Mass/Vol] 53 mg/dL [facility] Serum or plasma cholesterol in HDL measurement (mass/volume)Ordered By: Nando Wiggins on 11-12-2024 Cholesterol in HDL [Mass/Vol] 54 mg/dL >40 [facility] Serum or plasma cholesterol measurement (mass/volume)Ordered By: Nando Wiggins on 11-12-2024 Cholesterol [Mass/Vol] 112 mg/dL <201 [facility] Brain/Head without Contrasto n 11-08-2024 Brain/Head without Contrast Normal [facility] Emergency Department Summary on 11-08-2024 Emergency Department Summary Normal [facility] Foot min 3 Viewson 5 Foot min [address] [facility] Absolute lymphocyte countOrd ered By: Nando Wiggins on 11-05-2024 Lymphocytes Auto (Unsp spec) [#/Vol] 1.94 10*3/uL 0.83-4.51 [facility] Anion gap in Serum or Plasma Ordered By: Nando Wiggins on 11-05-2024 Anion gap [Moles/Vol] 16 mmol/L High 5-15 [facility] Automated lymphocyte count a s percentage of total leukocytesOrdered By: Nando Wiggins on 11-05-2024 Lymphocytes/100 WBC Auto (Unsp spec) 25.6 % 19-41 [facility] BUN/creatinine ratioOrdered By: Deblagunitaswolf Wiggins on 11-05-2024 Urea nitrogen/Creatinine [Mass ratio] 12.4 mg/mg 10-20 [facility] Basophil percentageOrdered B y: Nando Wiggins on 11-05-2024 Basophils/100 WBC (Bld) 0.7 % 0-1 [facility] Carbon dioxide, total [Moles /volume] in Central venous bloodOrdered By: Nando Wiggins on 11-05-2024 CO2 [Moles/Vol] 24.7 mmol/L 21.0-32.0 [facility] Chloride assayOrdered By: Kathie Wiggins on 11-05-2024 Chloride [Moles/Vol] 90 mmol/L Low 98-108 [facility] Eosinophil percentageOrdered By: fili Wiggins on 11-05-2024 Eosinophils/100 WBC (Bld) 3.8 % 0-5 [facility] Erythrocyte distribution wid th ratioOrdered By: Nando Wiggins on 11-05-2024 Erythrocyte distribution width (RBC) [Ratio] 16.2 % High 11.6-14.6 [facility] Erythrocyte distribution wid th standard deviationOrdered By: Nando Wiggins on 11-05-2024 Erythrocyte distribution width (RBC) [Ratio] 52.6 fl High 35.1-43.9 [facility] Glomerular filtration rate ( GFR) estimation/1.73 sq m using serum, plasma, or whole bOrdered By: Nando Wiggins on 11-05-2024 GFR/1.73 sq M.predicted among non-blacks MDRD (S/P/Bld) [Vol rate/Area] 10 mL/min/{1.73_m2} Low >60 [facility] Hematocrit Auto (Bld) [Volum e fraction]Ordered By: Nando Wiggins on 11-05-2024 Hematocrit (Bld) [Volume fraction] 37.4 % Low 40-54 [facility] Hemoglobin measurementOrdere d By: Nando Wiggins on 11-05-2024 Hemoglobin (Bld) [Mass/Vol] 11.7 g/dL Low 13.0-16.5 [facility] Immature granulocytes/100 WB C Auto (Bld)Ordered By: Nando Wiggins on 11-05-2024 Immature granulocytes/100 WBC (Bld) 0.400 % 0.0-0.9 [facility] MCV (mean corpuscular volume ) determinationOrdered By: Nando Wiggins on 11-05-2024 MCV (RBC) [Entitic vol] 89.3 fL 80-94 [facility] Mean corpuscular hemoglobin (MCH) determinationOrdered By: biancalagunitaswolf Wiggins on 11-05-2024 MCH (RBC) [Entitic mass] 27.9 pg 27.0-32.0 [facility] Monocyte percentageOrdered B y: Nando Wiggins on 11-05-2024 Monocytes/100 WBC (Bld) 12.3 % High 0-10 [facility] Neutrophil percentageOrdered By: fili Wiggins on 11-05-2024 Neutrophils/100 WBC (Bld) 57.2 % 47-70 [facility] Platelet countOrdered By: Kathie Wiggins on 11-05-2024 Platelets (Bld) [#/Vol] 188 10*3/uL 150-450 [facility] Potassium measurement (mass/ volume)Ordered By: Nando Wiggins on 11-05-2024 Potassium (Unsp spec) [Mass/Vol] 4.4 mmol/L 3.3-5.1 [facility] RBC Auto (Bld) [#/Vol]Ordere d By: Nando Wiggins on 11-05-2024 RBC (Bld) [#/Vol] 4.19 10*6/uL Low 4.6-6.2 [facility] Serum creatinine measurement (mass/volume)Ordered By: Nando Wiggins on 11-05-2024 Creatinine [Mass/Vol] 5.10 mg/dL High 0.70-1.20 [facility] Serum glucose measurement (m ass/volume)Ordered By: Nando Wiggins on 11-05-2024 Glucose [Mass/Vol] 81 mg/dL 70-99 [facility] Serum or plasma calcium lilli urement (mass/volume)Ordered By: Nando Edenlakshmidesiree on 11-05-2024 Calcium [Mass/Vol] 9.1 mg/dL 7.6-11.0 [facility] Serum or plasma urea nitroge n measurement (mass/volume)Ordered By: Nando Wiggins on 11-05-2024 Urea nitrogen [Mass/Vol] 63 mg/dL High 4-19 [facility] Sodium levelOrdered By: Deb lilian Rosalie on 11-05-2024 Sodium [Moles/Vol] 131 mmol/L Low 133-145 [facility] White blood cell (WBC) count Ordered By: Nando Wiggins on 11-05-2024 WBC (Bld) [#/Vol] 7.6 10*3/uL 4.4-11.0 [facility] Absolute lymphocyte countOrd ered By: Nando Wiggins on 10-29-2024 Lymphocytes Auto (Unsp spec) [#/Vol] 2.20 10*3/uL 0.83-4.51 [facility] Anion gap in Serum or Plasma Ordered By: Nando Wiggins on 10-29-2024 Anion gap [Moles/Vol] 16 mmol/L High 5-15 [facility] Automated lymphocyte count a s percentage of total leukocytesOrdered By: Nando Wiggins on 10-29-2024 Lymphocytes/100 WBC Auto (Unsp spec) 27.2 % 19-41 [facility] BUN/creatinine ratioOrdered By: Nando Edenlakshmidesiree on 10-29-2024 Urea nitrogen/Creatinine [Mass ratio] 9.4 mg/mg Low 10-20 [facility] Basophil percentageOrdered B y: Nando Wiggins on 10-29-2024 Basophils/100 WBC (Bld) 0.9 % 0-1 [facility] Carbon dioxide, total [Moles /volume] in Central venous bloodOrdered By: Nando Wiggins on 10-29-2024 CO2 [Moles/Vol] 25.6 mmol/L 21.0-32.0 [facility] Cardiology Visit Reporton Cardiology Visit Report Normal [facility] Chloride assayOrdered By: Kathie Wiggins on 10-29-2024 Chloride [Moles/Vol] 93 mmol/L Low 98-108 [facility] Eosinophil percentageOrdered By: Nando Wiggins on 10-29-2024 Eosinophils/100 WBC (Bld) 4.8 % 0-5 [facility] Erythrocyte distribution wid th ratioOrdered By: Nando Wiggins on 10-29-2024 Erythrocyte distribution width (RBC) [Ratio] 16.9 % High 11.6-14.6 [facility] Erythrocyte distribution wid th standard deviationOrdered By: Nando Wiggins on 10-29-2024 Erythrocyte distribution width (RBC) [Ratio] 53.9 fl High 35.1-43.9 [facility] Glomerular filtration rate ( GFR) estimation/1.73 sq m using serum, plasma, or whole bOrdered By: Nando Wiggins on 10-29-2024 GFR/1.73 sq M.predicted among non-blacks MDRD (S/P/Bld) [Vol rate/Area] 9 mL/min/{1.73_m2} Low >60 [facility] Hematocrit Auto (Bld) [Volum e fraction]Ordered By: Nando Wiggins on 10-29-2024 Hematocrit (Bld) [Volume fraction] 37.8 % Low 40-54 [facility] Hemoglobin measurementOrdere d By: Nando Wiggins on 10-29-2024 Hemoglobin (Bld) [Mass/Vol] 11.6 g/dL Low 13.0-16.5 [facility] Immature granulocytes/100 WB C Auto (Bld)Ordered By: Nando Wiggins on 10-29-2024 Immature granulocytes/100 WBC (Bld) 0.200 % 0.0-0.9 [facility] MCV (mean corpuscular volume ) determinationOrdered By: Nando Wiggins on 10-29-2024 MCV (RBC) [Entitic vol] 89.2 fL 80-94 [facility] Mean corpuscular hemoglobin (MCH) determinationOrdered By: Nando Wiggins on 10-29-2024 MCH (RBC) [Entitic mass] 27.4 pg 27.0-32.0 [facility] Monocyte percentageOrdered B y: Nando Wiggins on 10-29-2024 Monocytes/100 WBC (Bld) 11.1 % High 0-10 [facility] Neutrophil percentageOrdered By: Nando Wiggins on 10-29-2024 Neutrophils/100 WBC (Bld) 55.8 % 47-70 [facility] Platelet countOrdered By: Kathie Wiggins on 10-29-2024 Platelets (Bld) [#/Vol] 219 10*3/uL 150-450 [facility] Potassium measurement (mass/ volume)Ordered By: Nando Wiggins on 10-29-2024 Potassium (Unsp spec) [Mass/Vol] 4.4 mmol/L 3.3-5.1 [facility] RBC Auto (Bld) [#/Vol]Ordere d By: Nando Wiggins on 10-29-2024 RBC (Bld) [#/Vol] 4.24 10*6/uL Low 4.6-6.2 [facility] Serum creatinine measurement (mass/volume)Ordered By: Nando Wiggins on 10-29-2024 Creatinine [Mass/Vol] 5.65 mg/dL High 0.70-1.20 [facility] Serum glucose measurement (m ass/volume)Ordered By: Nando Wiggins on 10-29-2024 Glucose [Mass/Vol] 86 mg/dL 70-99 [facility] Serum or plasma calcium llili urement (mass/volume)Ordered By: Nando Wiggins on 10-29-2024 Calcium [Mass/Vol] 9.5 mg/dL 7.6-11.0 [facility] Serum or plasma urea nitroge n measurement (mass/volume)Ordered By: Nando Wiggins on 10-29-2024 Urea nitrogen [Mass/Vol] 53 mg/dL High 4-19 [facility] Sodium levelOrdered By: Deb lilian Rosalie on 10-29-2024 Sodium [Moles/Vol] 135 mmol/L 133-145 [facility] White blood cell (WBC) count Ordered By: Nando Wiggins on 10-29-2024 WBC (Bld) [#/Vol] 8.1 10*3/uL 4.4-11.0 [facility] Absolute lymphocyte countOrd ered By: Nando Wiggins on 10-22-2024 Lymphocytes Auto (Unsp spec) [#/Vol] 1.76 10*3/uL 0.83-4.51 [facility] Anion gap in Serum or Plasma Ordered By: Nando Wiggins on 10-22-2024 Anion gap [Moles/Vol] 16 mmol/L High 5-15 [facility] Automated lymphocyte count a s percentage of total leukocytesOrdered By: Nando Wiggins on 10-22-2024 Lymphocytes/100 WBC Auto (Unsp spec) 19.8 % 19-41 [facility] BUN/creatinine ratioOrdered By: Nando Wiggins on 10-22-2024 Urea nitrogen/Creatinine [Mass ratio] 12.2 mg/mg 10-20 [facility] Basophil percentageOrdered B y: Nando Edenlakshmidesiree on 10-22-2024 Basophils/100 WBC (Bld) 0.6 % 0-1 [facility] Carbon dioxide, total [Moles /volume] in Central venous bloodOrdered By: Nando Wiggins on 10-22-2024 CO2 [Moles/Vol] 27.2 mmol/L 21.0-32.0 [facility] Chloride assayOrdered By: Kathie Wiggins on 10-22-2024 Chloride [Moles/Vol] 91 mmol/L Low 98-108 [facility] Eosinophil percentageOrdered By: Nando Wiggins on 10-22-2024 Eosinophils/100 WBC (Bld) 3.0 % 0-5 [facility] Erythrocyte distribution wid th ratioOrdered By: Nando Wiggins on 10-22-2024 Erythrocyte distribution width (RBC) [Ratio] 15.9 % High 11.6-14.6 [facility] Erythrocyte distribution wid th standard deviationOrdered By: Nando Wiggins on 10-22-2024 Erythrocyte distribution width (RBC) [Ratio] 53.1 fl High 35.1-43.9 [facility] Glomerular filtration rate ( GFR) estimation/1.73 sq m using serum, plasma, or whole bOrdered By: Nando Wiggins on 10-22-2024 GFR/1.73 sq M.predicted among non-blacks MDRD (S/P/Bld) [Vol rate/Area] 12 mL/min/{1.73_m2} Low >60 [facility] Hematocrit Auto (Bld) [Volum e fraction]Ordered By: Nando Wiggins on 10-22-2024 Hematocrit (Bld) [Volume fraction] 35.6 % Low 40-54 [facility] Hemoglobin measurementOrdere d By: Nando Wiggins on 10-22-2024 Hemoglobin (Bld) [Mass/Vol] 10.7 g/dL Low 13.0-16.5 [facility] Immature granulocytes/100 WB C Auto (Bld)Ordered By: Nando Wiggins on 10-22-2024 Immature granulocytes/100 WBC (Bld) 0.400 % 0.0-0.9 [facility] MCV (mean corpuscular volume ) determinationOrdered By: Nando Wiggins on 10-22-2024 MCV (RBC) [Entitic vol] 90.6 fL 80-94 [facility] Mean corpuscular hemoglobin (MCH) determinationOrdered By: Nando Wiggins on 10-22-2024 MCH (RBC) [Entitic mass] 27.2 pg 27.0-32.0 [facility] Monocyte percentageOrdered B y: Nando Wiggins on 10-22-2024 Monocytes/100 WBC (Bld) 10.1 % High 0-10 [facility] Neutrophil percentageOrdered By: Nando Wiggins on 10-22-2024 Neutrophils/100 WBC (Bld) 66.1 % 47-70 [facility] Platelet countOrdered By: Kathie Wiggins on 10-22-2024 Platelets (Bld) [#/Vol] 167 10*3/uL 150-450 [facility] Potassium measurement (mass/ volume)Ordered By: Nando Wiggins on 10-22-2024 Potassium (Unsp spec) [Mass/Vol] 4.1 mmol/L 3.3-5.1 [facility] RBC Auto (Bld) [#/Vol]Ordere d By: Nando Wiggins on 10-22-2024 RBC (Bld) [#/Vol] 3.93 10*6/uL Low 4.6-6.2 [facility] Serum creatinine measurement (mass/volume)Ordered By: Nando Wiggins on 10-22-2024 Creatinine [Mass/Vol] 4.58 mg/dL High 0.70-1.20 [facility] Serum glucose measurement (m ass/volume)Ordered By: Nando Wiggins on 10-22-2024 Glucose [Mass/Vol] 131 mg/dL High 70-99 [facility] Serum or plasma calcium lilli urement (mass/volume)Ordered By: Nando Wiggins on 10-22-2024 Calcium [Mass/Vol] 9.1 mg/dL 7.6-11.0 [facility] Serum or plasma urea nitroge n measurement (mass/volume)Ordered By: Nando Wiggins on 10-22-2024 Urea nitrogen [Mass/Vol] 56 mg/dL High 4-19 [facility] Sodium levelOrdered By: Deb Wiggins on 10-22-2024 Sodium [Moles/Vol] 134 mmol/L 133-145 [facility] White blood cell (WBC) count Ordered By: Nando Wiggins on 10-22-2024 WBC (Bld) [#/Vol] 8.9 10*3/uL 4.4-11.0 [facility] Surgery Visit Reporton 10-17 Surgery Visit Report Normal [facility] Absolute lymphocyte countOrd ered By: Nando Wiggins on 10-16-2024 Lymphocytes Auto (Unsp spec) [#/Vol] 1.40 10*3/uL 0.83-4.51 [facility] Anion gap in Serum or Plasma Ordered By: Nando Wiggins on 10-16-2024 Anion gap [Moles/Vol] 14 mmol/L 5-15 [facility] Automated lymphocyte count a s percentage of total leukocytesOrdered By: Nando Wiggins on 10-16-2024 Lymphocytes/100 WBC Auto (Unsp spec) 15.9 % Low 19-41 [facility] BUN/creatinine ratioOrdered By: biancalagunitaswolf Wiggins on 10-16-2024 Urea nitrogen/Creatinine [Mass ratio] 13.8 mg/mg 10-20 [facility] Basophil percentageOrdered B y: Deblagunitaswolf Wiggins on 10-16-2024 Basophils/100 WBC (Bld) 0.7 % 0-1 [facility] Carbon dioxide, total [Moles /volume] in Central venous bloodOrdered By: [facility] on 10-16-2024 CO2 [Moles/Vol] 27.7 mmol/L 21.0-32.0 [facility] Chloride assayOrdered By: Kathie Wiggins on 10-16-2024 Chloride [Moles/Vol] 93 mmol/L Low 98-108 [facility] Eosinophil percentageOrdered By: biancalagunitaswolf Wiggins on 10-16-2024 Eosinophils/100 WBC (Bld) 2.7 % 0-5 [facility] Erythrocyte distribution wid th ratioOrdered By: biancalagunitaswolf Wiggins on 10-16-2024 Erythrocyte distribution width (RBC) [Ratio] 15.8 % High 11.6-14.6 [facility] Erythrocyte distribution wid th standard deviationOrdered By: biancalagunitaswolf Wiggins on 10-16-2024 Erythrocyte distribution width (RBC) [Ratio] 52.2 fl High 35.1-43.9 [facility] Glomerular filtration rate ( GFR) estimation/1.73 sq m using serum, plasma, or whole bOrdered By: Nando Wiggins on 10-16-2024 GFR/1.73 sq M.predicted among non-blacks MDRD (S/P/Bld) [Vol rate/Area] 9 mL/min/{1.73_m2} Low >60 [facility] Hematocrit Auto (Bld) [Volum e fraction]Ordered By: Nando Wiggins on 10-16-2024 Hematocrit (Bld) [Volume fraction] 34.0 % Low 40-54 [facility] Hemoglobin measurementOrdere d By: Debsrinathwolf Edenlakshmidesiree on 10-16-2024 Hemoglobin (Bld) [Mass/Vol] 10.4 g/dL Low 13.0-16.5 [facility] Immature granulocytes/100 WB C Auto (Bld)Ordered By: Nando Wiggins on 10-16-2024 Immature granulocytes/100 WBC (Bld) 0.300 % 0.0-0.9 [facility] MCV (mean corpuscular volume ) determinationOrdered By: Nando Wiggins on 10-16-2024 MCV (RBC) [Entitic vol] 90.2 fL 80-94 [facility] Mean corpuscular hemoglobin (MCH) determinationOrdered By: Nando Wiggins on 10-16-2024 MCH (RBC) [Entitic mass] 27.6 pg 27.0-32.0 [facility] Monocyte percentageOrdered B y: Nando Wiggins on 10-16-2024 Monocytes/100 WBC (Bld) 9.3 % 0-10 [facility] Neutrophil percentageOrdered By: biancasrinathwolf Edenlakshmidesiree on 10-16-2024 Neutrophils/100 WBC (Bld) 71.1 % High 47-70 [facility] Platelet countOrdered By: Kathie rehanwolf Edenlakshmidesiree on 10-16-2024 Platelets (Bld) [#/Vol] 152 10*3/uL 150-450 [facility] Potassium measurement (mass/ volume)Ordered By: Nando Wiggins on 10-16-2024 Potassium (Unsp spec) [Mass/Vol] 4.6 mmol/L 3.3-5.1 [facility] RBC Auto (Bld) [#/Vol]Ordere d By: Nando Wiggins on 10-16-2024 RBC (Bld) [#/Vol] 3.77 10*6/uL Low 4.6-6.2 [facility] Serum creatinine measurement (mass/volume)Ordered By: Nando Wiggins on 10-16-2024 Creatinine [Mass/Vol] 5.65 mg/dL High 0.70-1.20 [facility] Serum glucose measurement (m ass/volume)Ordered By: Kathiefili Wiggins on 10-16-2024 Glucose [Mass/Vol] 169 mg/dL High 70-99 [facility] Serum or plasma calcium lilli urement (mass/volume)Ordered By: Nando Wiggins on 10-16-2024 Calcium [Mass/Vol] 8.9 mg/dL 7.6-11.0 [facility] Serum or plasma urea nitroge n measurement (mass/volume)Ordered By: Nando Wiggins on 10-16-2024 Urea nitrogen [Mass/Vol] 78 mg/dL High 4-19 [facility] Sodium levelOrdered By: Deb lilian Meeklakshmidesiree on 10-16-2024 Sodium [Moles/Vol] 135 mmol/L 133-145 [facility] White blood cell (WBC) count Ordered By: Nando Wiggins on 10-16-2024 WBC (Bld) [#/Vol] 8.8 10*3/uL 4.4-11.0 [facility] Absolute lymphocyte countOrd ered By: Nando Wiggins on 10-08-2024 Lymphocytes Auto (Unsp spec) [#/Vol] 1.87 10*3/uL 0.83-4.51 [facility] Anion gap in Serum or Plasma Ordered By: Nando Wiggins on 10-08-2024 Anion gap [Moles/Vol] 13 mmol/L 5-15 [facility] Automated lymphocyte count a s percentage of total leukocytesOrdered By: Nando Wiggins on 10-08-2024 Lymphocytes/100 WBC Auto (Unsp spec) 27.5 % - [facility] BUN/creatinine ratioOrdered By: Nando Wiggins on 10-08-2024 Urea nitrogen/Creatinine [Mass ratio] 13.2 mg/mg 10-20 [facility] Basophil percentageOrdered B y: Nando Wiggins on 10-08-2024 Basophils/100 WBC (Bld) 1.0 % 0-1 [facility] Carbon dioxide, total [Moles /volume] in Central venous bloodOrdered By: Nando Wiggins on 10-08-2024 CO2 [Moles/Vol] 26.7 mmol/L 21.0-32.0 [facility] Chloride assayOrdered By: Kathie Wiggins on 10-08-2024 Chloride [Moles/Vol] 95 mmol/L Low 98-108 [facility] Eosinophil percentageOrdered By: Nando Wiggins on 10-08-2024 Eosinophils/100 WBC (Bld) 2.9 % 0-5 [facility] Erythrocyte distribution wid th ratioOrdered By: Nando Wiggins on 10-08-2024 Erythrocyte distribution width (RBC) [Ratio] 16.0 % High 11.6-14.6 [facility] Erythrocyte distribution wid th standard deviationOrdered By: Nando Wiggins on 10-08-2024 Erythrocyte distribution width (RBC) [Ratio] 54.2 fl High 35.1-43.9 [facility] Glomerular filtration rate ( GFR) estimation/1.73 sq m using serum, plasma, or whole bOrdered By: Nando Wiggins on 10-08-2024 GFR/1.73 sq M.predicted among non-blacks MDRD (S/P/Bld) [Vol rate/Area] 12 mL/min/{1.73_m2} Low >60 [facility] Hematocrit Auto (Bld) [Volum e fraction]Ordered By: Nando Wiggins on 10-08-2024 Hematocrit (Bld) [Volume fraction] 35.5 % Low 40-54 [facility] Hemoglobin measurementOrdere d By: Nando Wiggins on 10-08-2024 Hemoglobin (Bld) [Mass/Vol] 10.7 g/dL Low 13.0-16.5 [facility] Immature granulocytes/100 WB C Auto (Bld)Ordered By: Nando Wiggins on 10-08-2024 Immature granulocytes/100 WBC (Bld) 0.400 % 0.0-0.9 [facility] MCV (mean corpuscular volume ) determinationOrdered By: Nando Wiggins on 10-08-2024 MCV (RBC) [Entitic vol] 91.0 fL 80-94 [facility] Mean corpuscular hemoglobin (MCH) determinationOrdered By: Nando Wiggins on 10-08-2024 MCH (RBC) [Entitic mass] 27.4 pg 27.0-32.0 [facility] Monocyte percentageOrdered B y: Nando Wigigns on 10-08-2024 Monocytes/100 WBC (Bld) 8.2 % 0-10 [facility] Neutrophil percentageOrdered By: Kathiefili Wiggins on 10-08-2024 Neutrophils/100 WBC (Bld) 60.0 % 47-70 [facility] Platelet countOrdered By: Kathie rehanwolf Wiggins on 10-08-2024 Platelets (Bld) [#/Vol] 164 10*3/uL 150-450 [facility] Potassium measurement (mass/ volume)Ordered By: Nando Wiggins on 10-08-2024 Potassium (Unsp spec) [Mass/Vol] 4.1 mmol/L 3.3-5.1 [facility] RBC Auto (Bld) [#/Vol]Ordere d By: Debsrinathwolf Wiggins on 10-08-2024 RBC (Bld) [#/Vol] 3.90 10*6/uL Low 4.6-6.2 [facility] Serum creatinine measurement (mass/volume)Ordered By: Nando Wiggins on 10-08-2024 Creatinine [Mass/Vol] 4.42 mg/dL High 0.70-1.20 [facility] Serum glucose measurement (m ass/volume)Ordered By: Nando Wiggins on 10-08-2024 Glucose [Mass/Vol] 177 mg/dL High 70-99 [facility] Serum or plasma calcium lilli urement (mass/volume)Ordered By: Nando Wiggins on 10-08-2024 Calcium [Mass/Vol] 9.2 mg/dL 7.6-11.0 [facility] Serum or plasma urea nitroge n measurement (mass/volume)Ordered By: Nando Wiggins on 10-08-2024 Urea nitrogen [Mass/Vol] 59 mg/dL High 4-19 [facility] Sodium levelOrdered By: Deb lilian Rosalie on 10-08-2024 Sodium [Moles/Vol] 135 mmol/L 133-145 [facility] White blood cell (WBC) count Ordered By: Nando Wiggins on 10-08-2024 WBC (Bld) [#/Vol] 6.8 10*3/uL 4.4-11.0 [facility] Surgery Visit Reporton 10-03 Surgery Visit Report Normal [facility] Absolute lymphocyte countOrd ered By: Nando Wiggins on 10-02-2024 Lymphocytes Auto (Unsp spec) [#/Vol] 1.76 10*3/uL 0.83-4.51 [facility] Anion gap in Serum or Plasma Ordered By: Nando Wiggins on 10-02-2024 Anion gap [Moles/Vol] 14 mmol/L 5-15 [facility] Automated lymphocyte count a s percentage of total leukocytesOrdered By: Nando Wiggins on 10-02-2024 Lymphocytes/100 WBC Auto (Unsp spec) 25.6 % 19-41 [facility] BUN/creatinine ratioOrdered By: Nando Wiggins on 10-02-2024 Urea nitrogen/Creatinine [Mass ratio] 17.4 mg/mg 10-20 [facility] Basophil percentageOrdered B y: Nando Wiggins on 10-02-2024 Basophils/100 WBC (Bld) 1.0 % 0-1 [facility] Carbon dioxide, total [Moles /volume] in Central venous bloodOrdered By: Nando Wiggins on 10-02-2024 CO2 [Moles/Vol] 26.5 mmol/L 21.0-32.0 [facility] Chloride assayOrdered By: Kathie Wiggins on 10-02-2024 Chloride [Moles/Vol] 90 mmol/L Low 98-108 [facility] Eosinophil percentageOrdered By: Nando Wiggins on 10-02-2024 Eosinophils/100 WBC (Bld) 2.5 % 0-5 [facility] Erythrocyte distribution wid th ratioOrdered By: Nando Wiggins on 10-02-2024 Erythrocyte distribution width (RBC) [Ratio] 16.2 % High 11.6-14.6 [facility] Erythrocyte distribution wid th standard deviationOrdered By: Nando Wiggins on 10-02-2024 Erythrocyte distribution width (RBC) [Ratio] 54.6 fl High 35.1-43.9 [facility] Glomerular filtration rate ( GFR) estimation/1.73 sq m using serum, plasma, or whole bOrdered By: Nando Wiggins on 10-02-2024 GFR/1.73 sq M.predicted among non-blacks MDRD (S/P/Bld) [Vol rate/Area] 10 mL/min/{1.73_m2} Low >60 [facility] Hematocrit Auto (Bld) [Volum e fraction]Ordered By: Nando Wiggins on 10-02-2024 Hematocrit (Bld) [Volume fraction] 35.1 % Low 40-54 [facility] Hemoglobin measurementOrdere d By: Nando Wiggins on 10-02-2024 Hemoglobin (Bld) [Mass/Vol] 10.5 g/dL Low 13.0-16.5 [facility] Immature granulocytes/100 WB C Auto (Bld)Ordered By: Nando Wiggins on 10-02-2024 Immature granulocytes/100 WBC (Bld) 0.300 % 0.0-0.9 [facility] MCV (mean corpuscular volume ) determinationOrdered By: Nando Wiggins on 10-02-2024 MCV (RBC) [Entitic vol] 91.4 fL 80-94 [facility] Mean corpuscular hemoglobin (MCH) determinationOrdered By: Nando Wiggins on 10-02-2024 MCH (RBC) [Entitic mass] 27.3 pg 27.0-32.0 [facility] Monocyte percentageOrdered B y: Nando Wiggins on 10-02-2024 Monocytes/100 WBC (Bld) 10.5 % High 0-10 [facility] Neutrophil percentageOrdered By: Nando Wiggins on 10-02-2024 Neutrophils/100 WBC (Bld) 60.1 % 47-70 [facility] Platelet countOrdered By: Kathie Edenlakshmidesiree on 10-02-2024 Platelets (Bld) [#/Vol] 158 10*3/uL 150-450 [facility] Potassium measurement (mass/ volume)Ordered By: Kathiebiancasrinathwolf Edenlakshmidesiree on 10-02-2024 Potassium (Unsp spec) [Mass/Vol] 4.3 mmol/L 3.3-5.1 [facility] RBC Auto (Bld) [#/Vol]Ordere d By: Deblilian Meekcheko on 10-02-2024 RBC (Bld) [#/Vol] 3.84 10*6/uL Low 4.6-6.2 [facility] Serum creatinine measurement (mass/volume)Ordered By: Debsrinathwolf Edenlakshmidesiree on 10-02-2024 Creatinine [Mass/Vol] 5.22 mg/dL High 0.70-1.20 [facility] Serum glucose measurement (m ass/volume)Ordered By: Nando Wiggins on 10-02-2024 Glucose [Mass/Vol] 346 mg/dL High 70-99 [facility] Serum or plasma calcium lilli urement (mass/volume)Ordered By: Kathiebiancalilian Meeklakshmidesiree on 10-02-2024 Calcium [Mass/Vol] 9.0 mg/dL 7.6-11.0 [facility] Serum or plasma urea nitroge n measurement (mass/volume)Ordered By: Nando Edenlakshmidesiree on 10-02-2024 Urea nitrogen [Mass/Vol] 91 mg/dL High 4-19 [facility] Sodium levelOrdered By: Kathiebianca lilian Rosalie on 10-02-2024 Sodium [Moles/Vol] 131 mmol/L Low 133-145 [facility] White blood cell (WBC) count Ordered By: Kathiebiancasrinathwolf Edenlakshmidesiree on 10-02-2024 WBC (Bld) [#/Vol] 6.9 10*3/uL 4.4-11.0 [facility] Absolute lymphocyte countOrd ered By: Kathiebiancasrinathwolf Edenlakshmidesiree on 09-24-2024 Lymphocytes Auto (Unsp spec) [#/Vol] 1.75 10*3/uL 0.83-4.51 [facility] Anion gap in Serum or Plasma Ordered By: Nando Wiggins on 09-24-2024 Anion gap [Moles/Vol] 14 mmol/L 5-15 [facility] Automated lymphocyte count a s percentage of total leukocytesOrdered By: Nando Wiggins on 09-24-2024 Lymphocytes/100 WBC Auto (Unsp spec) 25.8 % 19-41 [facility] BUN/creatinine ratioOrdered By: Nando Wiggins on 09-24-2024 Urea nitrogen/Creatinine [Mass ratio] 12.6 mg/mg 10-20 [facility] Basophil percentageOrdered B y: Nando Wiggins on 09-24-2024 Basophils/100 WBC (Bld) 0.7 % 0-1 [facility] Carbon dioxide, total [Moles /volume] in Central venous bloodOrdered By: Nando Wiggins on 09-24-2024 CO2 [Moles/Vol] 26.2 mmol/L 21.0-32.0 [facility] Chloride assayOrdered By: Kathie Wiggins on 09-24-2024 Chloride [Moles/Vol] 93 mmol/L Low 98-108 [facility] Eosinophil percentageOrdered By: Nando Wiggins on 09-24-2024 Eosinophils/100 WBC (Bld) 2.7 % 0-5 [facility] Erythrocyte distribution wid th ratioOrdered By: Nando Wiggins on 09-24-2024 Erythrocyte distribution width (RBC) [Ratio] 17.2 % High 11.6-14.6 [facility] Erythrocyte distribution wid th standard deviationOrdered By: Nando Wiggins on 09-24-2024 Erythrocyte distribution width (RBC) [Ratio] 58.0 fl High 35.1-43.9 [facility] Glomerular filtration rate ( GFR) estimation/1.73 sq m using serum, plasma, or whole bOrdered By: Nando Wiggins on 09-24-2024 GFR/1.73 sq M.predicted among non-blacks MDRD (S/P/Bld) [Vol rate/Area] 13 mL/min/{1.73_m2} Low >60 [facility] Hematocrit Auto (Bld) [Volum e fraction]Ordered By: Nando Wiggins on 09-24-2024 Hematocrit (Bld) [Volume fraction] 34.6 % Low 40-54 [facility] Hemoglobin measurementOrdere d By: Debsrinathwolf Wiggins on 09-24-2024 Hemoglobin (Bld) [Mass/Vol] 10.3 g/dL Low 13.0-16.5 [facility] Immature granulocytes/100 WB C Auto (Bld)Ordered By: Nando Wiggins on 09-24-2024 Immature granulocytes/100 WBC (Bld) 0.400 % 0.0-0.9 [facility] MCV (mean corpuscular volume ) determinationOrdered By: Nando Wiggins on 09-24-2024 MCV (RBC) [Entitic vol] 90.8 fL 80-94 [facility] Mean corpuscular hemoglobin (MCH) determinationOrdered By: fili Wiggins on 09-24-2024 MCH (RBC) [Entitic mass] 27.0 pg 27.0-32.0 [facility] Monocyte percentageOrdered B y: Nando Wiggins on 09-24-2024 Monocytes/100 WBC (Bld) 11.8 % High 0-10 [facility] Neutrophil percentageOrdered By: biancalagunitaswolf Wiggins on 09-24-2024 Neutrophils/100 WBC (Bld) 58.6 % 47-70 [facility] Platelet countOrdered By: Kathie biancalilian Wiggins on 09-24-2024 Platelets (Bld) [#/Vol] 209 10*3/uL 150-450 [facility] Potassium measurement (mass/ volume)Ordered By: Nando Wiggins on 09-24-2024 Potassium (Unsp spec) [Mass/Vol] 3.4 mmol/L 3.3-5.1 [facility] RBC Auto (Bld) [#/Vol]Ordere d By: Nando Wiggins on 09-24-2024 RBC (Bld) [#/Vol] 3.81 10*6/uL Low 4.6-6.2 [facility] Serum creatinine measurement (mass/volume)Ordered By: Nando Wiggins on 09-24-2024 Creatinine [Mass/Vol] 4.34 mg/dL High 0.70-1.20 [facility] Serum glucose measurement (m ass/volume)Ordered By: Nando Wiggins on 09-24-2024 Glucose [Mass/Vol] 241 mg/dL High 70-99 [facility] Serum or plasma calcium lilli urement (mass/volume)Ordered By: Nando Wiggins on 09-24-2024 Calcium [Mass/Vol] 9.0 mg/dL 7.6-11.0 [facility] Serum or plasma urea nitroge n measurement (mass/volume)Ordered By: Nando Wiggins on 09-24-2024 Urea nitrogen [Mass/Vol] 55 mg/dL High 4-19 [facility] Sodium levelOrdered By: Deb Wiggins on 09-24-2024 Sodium [Moles/Vol] 134 mmol/L 133-145 [facility] White blood cell (WBC) count Ordered By: Nando Wiggins on 09-24-2024 WBC (Bld) [#/Vol] 6.8 10*3/uL 4.4-11.0 [facility] Absolute lymphocyte countOrd ered By: Nando Wiggins on 09-17-2024 Lymphocytes Auto (Unsp spec) [#/Vol] 1.93 10*3/uL 0.83-4.51 [facility] Anion gap in Serum or Plasma Ordered By: Nando Wiggins on 09-17-2024 Anion gap [Moles/Vol] 13 mmol/L 5-15 [facility] Automated lymphocyte count a s percentage of total leukocytesOrdered By: Nando Wiggins on 09-17-2024 Lymphocytes/100 WBC Auto (Unsp spec) 18.7 % Low 19-41 [facility] BUN/creatinine ratioOrdered By: Nando Wiggins on 09-17-2024 Urea nitrogen/Creatinine [Mass ratio] 12.3 mg/mg 10-20 [facility] Basophil percentageOrdered B y: Nando Wiggins on 09-17-2024 Basophils/100 WBC (Bld) 0.7 % 0-1 [facility] Carbon dioxide, total [Moles /volume] in Central venous bloodOrdered By: Nando Wiggins on 09-17-2024 CO2 [Moles/Vol] 27.5 mmol/L 21.0-32.0 [facility] Chloride assayOrdered By: Kathie Wiggins on 09-17-2024 Chloride [Moles/Vol] 93 mmol/L Low 98-108 [facility] Eosinophil percentageOrdered By: Nando Wiggins 09-17-2024 Eosinophils/100 WBC (Bld) 2.3 % 0-5 [facility] Erythrocyte distribution wid th ratioOrdered By: [facility] 09-17-[facility] Erythrocyte distribution width (RBC) [Ratio] 17.6 % High 11.6-14.6 [facility] Erythrocyte distribution wid th standard deviationOrdered By: biancalagunitaswolf Wiggins 09-17-2024 Erythrocyte distribution width (RBC) [Ratio] 59.3 fl High 35.1-43.9 [facility] Glomerular filtration rate ( GFR) estimation/1.73 sq m using serum, plasma, or whole bOrdered By: fili Wiggins 09-17-2024 GFR/1.73 sq M.predicted among non-blacks MDRD (S/P/Bld) [Vol rate/Area] 13 mL/min/{1.73_m2} Low >60 [facility] Hematocrit Auto (Bld) [Volum e fraction]Ordered By: Nando Wiggins 09-17-2024 Hematocrit (Bld) [Volume fraction] 32.9 % Low 40-54 [facility] Hemoglobin measurementOrdere d By: Nando Wigigns 09-17-2024 Hemoglobin (Bld) [Mass/Vol] 9.7 g/dL Low 13.0-16.5 [facility] Immature granulocytes/100 WB C Auto (Bld)Ordered By: Nando Wiggins 09-17-2024 Immature granulocytes/100 WBC (Bld) 0.400 % 0.0-0.9 [facility] MCV (mean corpuscular volume ) determinationOrdered By: Nando Wiggins 09-17-2024 MCV (RBC) [Entitic vol] 91.9 fL 80-94 [facility] Mean corpuscular hemoglobin (MCH) determinationOrdered By: Kathiebiancasrinathwolf Edencheko on 09-17-2024 MCH (RBC) [Entitic mass] 27.1 pg 27.0-32.0 [facility] Monocyte percentageOrdered B y: Nando Meekcheko on 09-17-2024 Monocytes/100 WBC (Bld) 10.2 % High 0-10 [facility] Neutrophil percentageOrdered By: Nando Meekcheko on 09-17-2024 Neutrophils/100 WBC (Bld) 67.7 % 47-70 [facility] Platelet countOrdered By: Kathie fili Meekcheko on 09-17-2024 Platelets (Bld) [#/Vol] 275 10*3/uL 150-450 [facility] Potassium measurement (mass/ volume)Ordered By: Nando Wiggins on 09-17-2024 Potassium (Unsp spec) [Mass/Vol] 3.3 mmol/L 3.3-5.1 [facility] RBC Auto (Bld) [#/Vol]Ordere d By: Nando Meekcheko on 09-17-2024 RBC (Bld) [#/Vol] 3.58 10*6/uL Low 4.6-6.2 [facility] Serum creatinine measurement (mass/volume)Ordered By: Nando Wiggins on 09-17-2024 Creatinine [Mass/Vol] 4.25 mg/dL High 0.70-1.20 [facility] Serum glucose measurement (m ass/volume)Ordered By: Kathiefili Wiggins on 09-17-2024 Glucose [Mass/Vol] 151 mg/dL High 70-99 [facility] Serum or plasma calcium lilli urement (mass/volume)Ordered By: Kathiebiancasrinathwolf Edenlakshmidesiree on 09-17-2024 Calcium [Mass/Vol] 8.7 mg/dL 7.6-11.0 [facility] Serum or plasma urea nitroge n measurement (mass/volume)Ordered By: Nando Wiggins on 09-17-2024 Urea nitrogen [Mass/Vol] 52 mg/dL High 4-19 [facility] Sodium levelOrdered By: Deb Wiggins on 09-17-2024 Sodium [Moles/Vol] 134 mmol/L 133-145 [facility] White blood cell (WBC) count Ordered By: Nando Wiggins on 09-17-2024 WBC (Bld) [#/Vol] 10.3 10*3/uL 4.4-11.0 [facility] Bilirubin directOrdered By: Nando Wiggins on 09-12-2024 Bilirubin.direct [Mass/Vol] 0.11 mg/dL 0.00-0.30 [facility] Bilirubin, totalOrdered By: Nando Wiggins on 09-12-2024 Bilirubin [Mass/Vol] 0.25 mg/dL 0.00-1.30 [facility] Hemoglobin A1c percentageOrd ered By: Nando Wiggins on 09-12-2024 HbA1c (Bld) [Mass fraction] 6.1 % High <5.7 [facility] No Panel InformationOrdered By: Nando Wiggins on 09-12-2024 16 U/L <38 [facility] Serum globulin measurementOr dered By: Nando Wiggins 09-12-2024 Globulin (S) [Mass/Vol] 3.3 g/dL 2.2-4.2 [facility] Serum or plasma alanine hawkins otransferase (ALT) measurementOrdered By: Nando Wiggins 09-12-2024 ALT [Catalytic activity/Vol] U/L <47 [facility] Serum or plasma albumin lilli urement (mass/volume)Ordered By: Nando Wiggins 09-12-2024 Albumin [Mass/Vol] 2.8 g/dL Low 3.4-4.8 [facility] Serum or plasma alkaline penelope sphatase measurementOrdered By: Nando Wiggins 09-12-2024 ALP [Catalytic activity/Vol] 55 U/L 40-129 [facility] Total proteinOrdered By: Sinan Wiggins on 09-12-2024 Protein [Mass/Vol] 6.0 g/dL 5.9-8.4 [facility] Vitamin B12 ser/plasOrdered By: Nando Wiggins on 09-12-2024 Cobalamin (Vitamin B12) [Mass/Vol] 717 pg/mL 180-914 [facility] Absolute lymphocyte countOrd ered By: Nando Wiggins on 09-10-2024 Lymphocytes Auto (Unsp spec) [#/Vol] 1.78 10*3/uL 0.83-4.51 [facility] Anion gap in Serum or Plasma Ordered By: Nando Wiggins on 09-10-2024 Anion gap [Moles/Vol] 12 mmol/L 5-15 [facility] Automated lymphocyte count a s percentage of total leukocytesOrdered By: Nando Wiggins on 09-10-2024 Lymphocytes/100 WBC Auto (Unsp spec) 21.1 % 19-41 [facility] BUN/creatinine ratioOrdered By: Nando Wiggins on 09-10-2024 Urea nitrogen/Creatinine [Mass ratio] 11.1 mg/mg 10-20 [facility] Basophil percentageOrdered B y: Nando Wiggins on 09-10-2024 Basophils/100 WBC (Bld) 0.7 % 0-1 [facility] Carbon dioxide, total [Moles /volume] in Central venous bloodOrdered By: Nando Wiggins on 09-10-2024 CO2 [Moles/Vol] 27.1 mmol/L 21.0-32.0 [facility] Chloride assayOrdered By: Kathie Wiggins on 09-10-2024 Chloride [Moles/Vol] 94 mmol/L Low 98-108 [facility] Eosinophil percentageOrdered By: Nando Wiggins on 09-10-2024 Eosinophils/100 WBC (Bld) 1.8 % 0-5 [facility] Erythrocyte distribution wid th ratioOrdered By: Nando Wiggins on 09-10-2024 Erythrocyte distribution width (RBC) [Ratio] 17.3 % High 11.6-14.6 [facility] Erythrocyte distribution wid th standard deviationOrdered By: Nando Wiggins on 09-10-2024 Erythrocyte distribution width (RBC) [Ratio] 56.1 fl High 35.1-43.9 [facility] Glomerular filtration rate ( GFR) estimation/1.73 sq m using serum, plasma, or whole bOrdered By: Nando Wiggins on 09-10-2024 GFR/1.73 sq M.predicted among non-blacks MDRD (S/P/Bld) [Vol rate/Area] 14 mL/min/{1.73_m2} Low >60 [facility] Hematocrit Auto (Bld) [Volum e fraction]Ordered By: Nando Wiggins on 09-10-2024 Hematocrit (Bld) [Volume fraction] 29.7 % Low 40-54 [facility] Hemoglobin measurementOrdere d By: Nando Wiggins on 09-10-2024 Hemoglobin (Bld) [Mass/Vol] 9.1 g/dL Low 13.0-16.5 [facility] Immature granulocytes/100 WB C Auto (Bld)Ordered By: Nando Wiggins on 09-10-2024 Immature granulocytes/100 WBC (Bld) 1.200 % High 0.0-0.9 [facility] MCV (mean corpuscular volume ) determinationOrdered By: Nando Wiggins on 09-10-2024 MCV (RBC) [Entitic vol] 88.9 fL 80-94 [facility] Mean corpuscular hemoglobin (MCH) determinationOrdered By: biancalagunitaswolf Wiggins on 09-10-2024 MCH (RBC) [Entitic mass] 27.2 pg 27.0-32.0 [facility] Monocyte percentageOrdered B y: Nando Wiggins on 09-10-2024 Monocytes/100 WBC (Bld) 11.2 % High 0-10 [facility] Neutrophil percentageOrdered By: fili Wiggins on 09-10-2024 Neutrophils/100 WBC (Bld) 64.0 % 47-70 [facility] Platelet countOrdered By: Kathie Wiggins on 09-10-2024 Platelets (Bld) [#/Vol] 305 10*3/uL 150-450 [facility] Potassium measurement (mass/ volume)Ordered By: Nando Wiggins on 09-10-2024 Potassium (Unsp spec) [Mass/Vol] 3.9 mmol/L 3.3-5.1 [facility] RBC Auto (Bld) [#/Vol]Ordere d By: Nando Wiggins on 09-10-2024 RBC (Bld) [#/Vol] 3.34 10*6/uL Low 4.6-6.2 [facility] Serum creatinine measurement (mass/volume)Ordered By: Kathiefili Wiggins on 09-10-2024 Creatinine [Mass/Vol] 3.98 mg/dL High 0.70-1.20 [facility] Serum glucose measurement (m ass/volume)Ordered By: Nando Wiggins on 09-10-2024 Glucose [Mass/Vol] 117 mg/dL High 70-99 [facility] Serum or plasma calcium lilli urement (mass/volume)Ordered By: biancalagunitaswolf Wiggins on 09-10-2024 Calcium [Mass/Vol] 8.9 mg/dL 7.6-11.0 [facility] Serum or plasma urea nitroge n measurement (mass/volume)Ordered By: Nando Edenlakshmidesiree on 09-10-2024 Urea nitrogen [Mass/Vol] 44 mg/dL High 4-19 [facility] Sodium levelOrdered By: Deb quintana Meekcheko on 09-10-2024 Sodium [Moles/Vol] 133 mmol/L 133-145 [facility] White blood cell (WBC) count Ordered By: Kathiefili Edenlakshmidesiree on 09-10-2024 WBC (Bld) [#/Vol] 8.5 10*3/uL 4.4-11.0 [facility] Bedside Glucoseon 09-04-2024 FINGERSTICK GLU 214 mg/dL High 74-106 [facility] Comment on above: Result Comment: FANG GEMENT OF PATIENT CARE PER NURSING PROTOCOL Performed By: #### L 501.080 ####[facility] [address] [place], [address] FINGERSTICK GLU 151 mg/dL High 74-106 [facility] Comment on above: Result Comment: FANG GEMENT OF PATIENT CARE PER NURSING PROTOCOL Performed By: #### L 501.080 ####[facility] [address] [place], [address] [facility] deOrdered By: Earl White on 09-04-2024 Glucose [Mass/Vol] 214 mg/dL High [address] [facility] Absolute lymphocyte countOrd ered By: Salma Cervantes on 09-03-2024 Lymphocytes Auto (Unsp spec) [#/Vol] 1.48 10*3/uL 0.83-4.51 [facility] Automated lymphocyte count a s percentage of total leukocytesOrdered By: Salma Adamshn on 09-03-2024 Lymphocytes/100 WBC Auto (Unsp spec) 19.3 % 19-41 [facility] Basophil percentageOrdered B y: Salma Cervantes on 09-03-2024 Basophils/100 WBC (Bld) 0.5 % 0-1 [facility] Bedside Glucoseon 09-03-2024 FINGERSTICK GLU 219 mg/dL High [address] [address] Comment on above: Result Comment: FANG GEMENT OF PATIENT CARE PER NURSING PROTOCOL Performed By: #### L 501.080 ####[facility] [address] [place], [address] FINGERSTICK GLU 212 mg/dL High [address] [address] Comment on above: Result Comment: FANG GEMENT OF PATIENT CARE PER NURSING PROTOCOL Performed By: #### L 501.080 ####[facility] [address] [facility] [address] FINGERSTICK GLU 172 mg/dL High [address] [place] [address] Comment on above: Result Comment: FANG GEMENT OF PATIENT CARE PER NURSING PROTOCOL Performed By: #### L 501.080 ####[facility] [address] [facility] [address] FINGERSTICK GLU 175 mg/dL High [address] [place] [address] Comment on above: Result Comment: FANG GEMENT OF PATIENT CARE PER NURSING PROTOCOL Performed By: #### L 501.080 ####[facility] [address] [place], [address] CBC W/Diff, Automatedon 08-21 Absolute Lymph 1.48 X10 3/uL Normal 0.83-4.51 [facility] Comment on above: Performed By: #### L 100.0100 ####[facility] [address] [place], [address] Absolute Neut 5.2 X10 3/uL Normal 2.0-7.7 [facility] Comment on above: Performed By: #### L 100.0100 ####[facility] [address] [place], [address] Basophils/100 WBC (Bld) 0.5 % Normal 0-1 [facility] Comment on above: Performed By: #### L 100.0100 ####[facility] [address] [place], [address] Eosinophils/100 WBC (Bld) 2.7 % Normal 0-5 [facility] Comment on above: Performed By: #### L 100.0100 ####[facility] [address] [place], [address] Erythrocyte distribution width (RBC) [Ratio] 16.3 % High 11.6-14.6 [facility] Comment on above: Performed By: #### L 100.0100 ####[facility] [address] [place], [address] Hematocrit (Bld) [Volume fraction] 24.8 % Low 40-54 [facility] Comment on above: Performed By: #### L 100.0100 ####[facility] [address] [place], [address] Hemoglobin (Bld) [Mass/Vol] 7.4 g/dL Low 13.0-16.5 [facility] Comment on above: Performed By: #### L 100.0100 ####[facility] [address] [place], [address] IG% 0.500 Normal 0.0-0.9 [facility] Comment on above: Result Comment: IG% - Immature Granulocytes (promyelocytes, myelocytes andmetamyelocytes) > 1% indicates that a LEFT SHIFT is Present. Performed By: #### L 100.0100 ####[facility] [address] [place], [address] Lymphocytes/100 WBC (Bld) 19.3 % Normal 19-41 [facility] Comment on above: Performed By: #### L 100.0100 ####[facility] [address] [place], [address] MCH (RBC) [Entitic mass] 26.6 pg Low 27.0-32.0 [facility] Comment on above: Performed By: #### L 100.0100 ####[facility] [address] [place], [address] MCHC (RBC) [Mass/Vol] 29.8 g/dL Low 32-36 [facility] Comment on above: Performed By: #### L 100.0100 ####[facility] [address] [place], [address] MCV (RBC) [Entitic vol] 89.2 fL Normal 80-94 [facility] Comment on above: Performed By: #### L 100.0100 ####[facility] [address] [place], [address] Monocytes/100 WBC (Bld) 9.7 % Normal 0-10 [facility] Comment on above: Performed By: #### L 100.0100 ####[facility] [address] [place], [address] Neutrophils/100 WBC (Bld) 67.3 % Normal 47-70 [facility] Comment on above: Performed By: #### L 100.0100 ####[facility] [address] [place], [address] Nucleated RBC (Bld) [#/Vol] 0 10*3/uL Normal 0-5 [facility] Comment on above: Performed By: #### L 100.0100 ####[facility] [address] [place], [address] Platelet mean volume (Bld) [Entitic vol] 10.9 fL Normal 6.2-12.0 [facility] Comment on above: Performed By: #### L 100.0100 ####[facility] [address] [place], [address] Platelets (Bld) [#/Vol] 305 10*3/uL Normal 150-450 [facility] Comment on above: Performed By: #### L 100.0100 ####[facility] [address] [place], [address] RBC (Bld) [#/Vol] 2.78 10*6/uL Low 4.6-6.2 [facility] Comment on above: Performed By: #### L 100.0100 ####[facility] [address] [place], [address] RDW SD 53.4 fl High 35.1-43.9 [facility] Comment on above: Performed By: #### L 100.0100 ####[facility] [address] [place], [address] WBC (Bld) [#/Vol] 7.7 10*3/uL Normal 4.4-11.0 [facility] Comment on above: Performed By: #### L 100.0100 ####[facility] [address] [place], [address] Eosinophil percentageOrdered By: Salma Cervantes on 09-03-2024 Eosinophils/100 WBC (Bld) 2.7 % 0-5 [facility] Erythrocyte distribution wid th ratioOrdered By: Salma Cervantes on 09-03-2024 Erythrocyte distribution width (RBC) [Ratio] 16.3 % High 11.6-14.6 [facility] Erythrocyte distribution wid th standard deviationOrdered By: Salma Cervantes on 09-03-2024 Erythrocyte distribution width (RBC) [Ratio] 53.4 fl High 35.1-43.9 [facility] Hematocrit Auto (Bld) [Volum e fraction]Ordered By: Salma Cervantes on 09-03-2024 Hematocrit (Bld) [Volume fraction] 24.8 % Low 40-54 [facility] Hemoglobin measurementOrdere d By: Salma Cervantes on 09-03-2024 Hemoglobin (Bld) [Mass/Vol] 7.4 g/dL Low 13.0-16.5 [facility] Immature granulocytes/100 WB C Auto (Bld)Ordered By: Salma Cervantes on 09-03-2024 Immature granulocytes/100 WBC (Bld) 0.500 % 0.0-0.9 [facility] MCV (mean corpuscular volume ) determinationOrdered By: Salma Cervantes on 09-03-2024 MCV (RBC) [Entitic vol] 89.2 fL 80-94 [facility] Mean corpuscular hemoglobin (MCH) determinationOrdered By: Salma Cervantes on 09-03-2024 MCH (RBC) [Entitic mass] 26.6 pg Low 27.0-32.0 [facility] Monocyte percentageOrdered B y: Salma Cervantes on 09-03-2024 Monocytes/100 WBC (Bld) 9.7 % 0-10 [facility] Neutrophil percentageOrdered By: Salma Cervantes on 09-03-2024 Neutrophils/100 WBC (Bld) 67.3 % 47-70 [facility] Platelet countOrdered By: Xavier Cervantes on 09-03-2024 Platelets (Bld) [#/Vol] 305 10*3/uL 150-450 [facility] RBC Auto (Bld) [#/Vol]Ordere d By: Salma Cervantes on 09-03-2024 RBC (Bld) [#/Vol] 2.78 10*6/uL Low 4.6-6.2 [facility] White blood cell (WBC) count Ordered By: Salma Cervantes on 09-03-2024 WBC (Bld) [#/Vol] 7.7 10*3/uL 4.4-11.0 [facility] Anion gap in Serum or Plasma Ordered By: Salma Cervantes on 09-02-2024 Anion gap [Moles/Vol] 12 mmol/L - [facility] BUN/creatinine ratioOrdered By: Salma Cervantes on 09-02-2024 Urea nitrogen/Creatinine [Mass ratio] 13.7 mg/mg - [facility] Basic Metabolic Profile (BMP )on 09-02-2024 BUN/CRE 13.7 RATIO Normal - [facility] Comment on above: Performed By: #### L 500.2500 ####[facility] [address] [place], [address] Calcium [Mass/Vol] 8.7 mg/dL Normal 7.6-11.0 [facility] Comment on above: Performed By: #### L 500.2500 ####[facility] [address] [place], [address] Chloride [Moles/Vol] 96 mmol/L Low 98-108 [facility] Comment on above: Performed By: #### L 500.2500 ####[facility] [address] [place], [address] CO2 [Moles/Vol] 23.2 mmol/L Normal 21.0-32.0 [facility] Comment on above: Performed By: #### L 500.2500 ####[facility] [address] [place], [address] Creatinine [Mass/Vol] 4.19 mg/dL High 0.70-1.20 [facility] Comment on above: Performed By: #### L 500.2500 ####[facility] [address] [place], [address] ECRCL 13.21 ml/min Low 50-250 [facility] Comment on above: Performed By: #### L 500.2500 ####[facility] [address] [place], [address] GAP 12 Normal 5-15 [facility] Comment on above: Performed By: #### L 500.2500 ####[facility] [address] [place], [address] GFR/1.73 sq M.predicted among non-blacks MDRD (S/P/Bld) [Vol rate/Area] 13 mL/min/{1.73_m2} Low >60 [facility] Comment on above: Result Comment: mL/m in/1.73m2 CKD-EPI Creatinine Equation (2020) Performed By: #### L 500.2500 ####[facility] [address] [place], [address] Glucose [Mass/Vol] 186 mg/dL High 70-99 [facility] Comment on above: Performed By: #### L 500.2500 ####[facility] [address] [place], [address] Potassium [Moles/Vol] 4.8 mmol/L Normal 3.3-5.1 [facility] Comment on above: Performed By: #### L 500.2500 ####[facility] [address] [place], [address] Sodium [Moles/Vol] 131 mmol/L Low 133-145 [facility] Comment on above: Performed By: #### L 500.2500 ####[facility] [address] [place], [address] Urea nitrogen [Mass/Vol] 57 mg/dL High 4-19 [facility] Comment on above: Performed By: #### L 500.2500 ####[facility] [address] [place], [address] Bedside Glucoseon 09-02-2024 FINGERSTICK GLU 212 mg/dL High 74-106 [facility] Comment on above: Result Comment: FANG GEMENT OF PATIENT CARE PER NURSING PROTOCOL Performed By: #### L 501.080 ####[facility] [address] [place], [address] FINGERSTICK GLU 183 mg/dL High 74-106 [facility] Comment on above: Result Comment: FANG GEMENT OF PATIENT CARE PER NURSING PROTOCOL Performed By: #### L 501.080 ####[facility] [address] [place], [address] FINGERSTICK GLU 219 mg/dL High -106 [facility] Comment on above: Result Comment: FANG GEMENT OF PATIENT CARE PER NURSING PROTOCOL Performed By: #### L 501.080 ####[facility] [address] [place], [address] FINGERSTICK GLU 177 mg/dL High 74-106 [facility] Comment on above: Result Comment: FANG GEMENT OF PATIENT CARE PER NURSING PROTOCOL Performed By: #### L 501.080 ####[facility] [address] [place], [address] CBC W/Diff, Automatedon 04- Absolute Lymph 1.42 X10 3/uL Normal 0.83-4.51 [facility] Comment on above: Performed By: #### L 100.0100 ####[facility] [address] [place], [address] Absolute Neut 4.8 X10 3/uL Normal 2.0-7.7 [facility] Comment on above: Performed By: #### L 100.0100 ####[facility] [address] [place], [address] Basophils/100 WBC (Bld) 0.4 % Normal 0-1 [facility] Comment on above: Performed By: #### L 100.0100 ####[facility] [address] [place], [address] Eosinophils/100 WBC (Bld) 3.2 % Normal 0-5 [facility] Comment on above: Performed By: #### L 100.0100 ####[facility] [address] [place], [address] Erythrocyte distribution width (RBC) [Ratio] 16.0 % High 11.6-14.6 [facility] Comment on above: Performed By: #### L 100.0100 ####[facility] [address] [place], [address] Hematocrit (Bld) [Volume fraction] 25.8 % Low 40-54 [facility] Comment on above: Performed By: #### L 100.0100 ####[facility] [address] [place], [address] Hemoglobin (Bld) [Mass/Vol] 7.8 g/dL Low 13.0-16.5 [facility] Comment on above: Performed By: #### L 100.0100 ####[facility] [address] [place], [address] IG% 0.400 Normal 0.0-0.9 [facility] Comment on above: Result Comment: IG% - Immature Granulocytes (promyelocytes, myelocytes andmetamyelocytes) > 1% indicates that a LEFT SHIFT is Present. Performed By: #### L 100.0100 ####[facility] [address] [place], [address] Lymphocytes/100 WBC (Bld) 19.9 % Normal 19-41 [facility] Comment on above: Performed By: #### L 100.0100 ####[facility] [address] [place], [address] MCH (RBC) [Entitic mass] 27.2 pg Normal 27.0-32.0 [facility] Comment on above: Performed By: #### L 100.0100 ####[facility] [address] [place], [address] MCHC (RBC) [Mass/Vol] 30.2 g/dL Low 32-36 [facility] Comment on above: Performed By: #### L 100.0100 ####[facility] [address] [place], [address] MCV (RBC) [Entitic vol] 89.9 fL Normal 80-94 [facility] Comment on above: Performed By: #### L 100.0100 ####[facility] [address] [place], [address] Monocytes/100 WBC (Bld) 9.1 % Normal 0-10 [facility] Comment on above: Performed By: #### L 100.0100 ####[facility] [address] [place], [address] Neutrophils/100 WBC (Bld) 67.0 % Normal 47-70 [facility] Comment on above: Performed By: #### L 100.0100 ####[facility] [address] [place], [address] Nucleated RBC (Bld) [#/Vol] 0 10*3/uL Normal 0-5 [facility] Comment on above: Performed By: #### L 100.0100 ####[facility] [address] [place], [address] Platelet mean volume (Bld) [Entitic vol] 10.6 fL Normal 6.2-12.0 [facility] Comment on above: Performed By: #### L 100.0100 ####[facility] [address] [place], [address] Platelets (Bld) [#/Vol] 284 10*3/uL Normal 150-450 [facility] Comment on above: Performed By: #### L 100.0100 ####[facility] [address] [place], [address] RBC (Bld) [#/Vol] 2.87 10*6/uL Low 4.6-6.2 [facility] Comment on above: Performed By: #### L 100.0100 ####[facility] [address] [place], [address] RDW SD 52.3 fl High 35.1-43.9 [facility] Comment on above: Performed By: #### L 100.0100 ####[facility] [address] [place], [address] WBC (Bld) [#/Vol] 7.2 10*3/uL Normal 4.4-11.0 [facility] Comment on above: Performed By: #### L 100.0100 ####[facility] [address] [place], [address] Carbon dioxide, total [Moles /volume] in Central venous bloodOrdered By: Salma Cervantes on 09-02-2024 CO2 [Moles/Vol] 23.2 mmol/L 21.0-32.0 [facility] Chloride assayOrdered By: Xavier Cervantes on 09-02-2024 Chloride [Moles/Vol] 96 mmol/L Low 98-108 [facility] Glomerular filtration rate ( GFR) estimation/1.73 sq m using serum, plasma, or whole bOrdered By: Salma Cervantes on 09-02-2024 GFR/1.73 sq M.predicted among non-blacks MDRD (S/P/Bld) [Vol rate/Area] 13 mL/min/{1.73_m2} Low >60 [facility] Potassium measurement (mass/ volume)Ordered By: Salma Cervantes on 09-02-2024 Potassium (Unsp spec) [Mass/Vol] 4.8 mmol/L 3.3-5.1 [facility] Serum creatinine measurement (mass/volume)Ordered By: Salma Cervantes on 09-02-2024 Creatinine [Mass/Vol] 4.19 mg/dL High 0.70-1.20 [facility] Serum glucose measurement (m ass/volume)Ordered By: Salma Billy on 09-02-2024 Glucose [Mass/Vol] 186 mg/dL High 70-99 [facility] Serum or plasma calcium lilli urement (mass/volume)Ordered By: Salmavito Cervantes on 09-02-2024 Calcium [Mass/Vol] 8.7 mg/dL 7.6-11.0 [facility] Serum or plasma urea nitroge n measurement (mass/volume)Ordered By: Salma Cervantes on 09-02-2024 Urea nitrogen [Mass/Vol] 57 mg/dL High 4-19 [facility] Sodium levelOrdered By: Juanlena samano Billy on 09-02-2024 Sodium [Moles/Vol] 131 mmol/L Low 133-145 [facility] Bedside Glucoseon 09-01-2024 FINGERSTICK GLU 183 mg/dL High 74-106 [facility] Comment on above: Result Comment: FANG GEMENT OF PATIENT CARE PER NURSING PROTOCOL Performed By: #### L 501.080 ####[facility] [address] [facility] [address] FINGERSTICK GLU 230 mg/dL High 74-106 [facility] Comment on above: Result Comment: FANG GEMENT OF PATIENT CARE PER NURSING PROTOCOL Performed By: #### L 501.080 ####[facility] [address] [facility] [address] FINGERSTICK GLU 103 mg/dL Normal 74-106 [facility] Comment on above: Result Comment: FANG GEMENT OF PATIENT CARE PER NURSING PROTOCOL Performed By: #### L 501.080 ####[facility] [address] [facility] [address] FINGERSTICK GLU 216 mg/dL High 74-106 [facility] Comment on above: Result Comment: FANG GEMENT OF PATIENT CARE PER NURSING PROTOCOL Performed By: #### L 501.080 ####[facility] [address] [place], [address] Serum or plasma vancomycin m easurement (mass/volume)Ordered By: Earl White on 09-01-2024 Vancomycin [Mass/Vol] 14.1 ug/mL 0.0-15.0 [facility] Vancomycin, Random Levelon 0 09-01-2024 VANCO, RANDOM 14.1 ug/mL Normal 0.0-15.0 [facility] Comment on above: Result Comment: VANC OMYCIN STANDARD DRUG THERAPY: CRITICAL VALUE IS > 15.0 mg/LVANCOMYCIN HIGH INTENSITY THERAPY: CRITICAL VALUE IS > 20.0 mg/LPLEASE CONTACT PHARMACY SERVICES (#9612) FOR INTERPRETATIONOF RESULTS. THIS RESULT DOES NOT REPRESENT A PEAK OR TROUGHLEVEL FOR THIS DRUG. Performed By: #### L 501.8850 ####[facility] [address] [place], [address] AV Fistula/Dialysis Graft Sc anon 08-31-2024 AV Fistula/Dialysis Graft Scan Normal [facility] Bedside Glucoseon 08-31-2024 FINGERSTICK GLU 169 mg/dL High 74-106 [facility] Comment on above: Result Comment: FANG GEMENT OF PATIENT CARE PER NURSING PROTOCOL Performed By: #### L 501.080 ####[facility] [address] [place], [address] FINGERSTICK GLU 207 mg/dL High 74-106 [facility] Comment on above: Result Comment: FANG GEMENT OF PATIENT CARE PER NURSING PROTOCOL Performed By: #### L 501.080 ####[facility] [address] [place], [address] FINGERSTICK GLU 162 mg/dL High 74-106 [facility] Comment on above: Result Comment: FANG GEMENT OF PATIENT CARE PER NURSING PROTOCOL Performed By: #### L 501.080 ####[facility] [address] [place], [address] FINGERSTICK GLU 189 mg/dL High 74-106 [facility] Comment on above: Result Comment: FANG GEMENT OF PATIENT CARE PER NURSING PROTOCOL Performed By: #### L 501.080 ####[facility] [address] [place], [address] CBC W/Diff, Automatedon - Absolute Lymph 1.13 X10 3/uL Normal 0.83-4.51 [facility] Comment on above: Performed By: #### L 100.0100 ####[facility] [address] [place], [address] Absolute Neut 5.3 X10 3/uL Normal 2.0-7.7 [facility] Comment on above: Performed By: #### L 100.0100 ####[facility] [address] [place], [address] Basophils/100 WBC (Bld) 0.6 % Normal 0-1 [facility] Comment on above: Performed By: #### L 100.0100 ####[facility] [address] [place], [address] Eosinophils/100 WBC (Bld) 3.1 % Normal 0-5 [facility] Comment on above: Performed By: #### L 100.0100 ####[facility] [address] [place], [address] Erythrocyte distribution width (RBC) [Ratio] 16.1 % High 11.6-14.6 [facility] Comment on above: Performed By: #### L 100.0100 ####[facility] [address] [place], [address] Hematocrit (Bld) [Volume fraction] 26.1 % Low 40-54 [facility] Comment on above: Performed By: #### L 100.0100 ####[facility] [address] [place], [address] Hemoglobin (Bld) [Mass/Vol] 7.7 g/dL Low 13.0-16.5 [facility] Comment on above: Performed By: #### L 100.0100 ####[facility] [address] [place], [address] IG% 0.500 Normal 0.0-0.9 [facility] Comment on above: Result Comment: IG% - Immature Granulocytes (promyelocytes, myelocytes andmetamyelocytes) > 1% indicates that a LEFT SHIFT is Present. Performed By: #### L 100.0100 ####[facility] [address] [place], [address] Lymphocytes/100 WBC (Bld) 14.5 % Low 19-41 [facility] Comment on above: Performed By: #### L 100.0100 ####[facility] [address] [place], [address] MCH (RBC) [Entitic mass] 27.0 pg Normal 27.0-32.0 [facility] Comment on above: Performed By: #### L 100.0100 ####[facility] [address] [place], [address] MCHC (RBC) [Mass/Vol] 29.5 g/dL Low 32-36 [facility] Comment on above: Performed By: #### L 100.0100 ####[facility] [address] [place], [address] MCV (RBC) [Entitic vol] 91.6 fL Normal 80-94 [facility] Comment on above: Performed By: #### L 100.0100 ####[facility] [address] [place], [address] Monocytes/100 WBC (Bld) 12.9 % High 0-10 [facility] Comment on above: Performed By: #### L 100.0100 ####[facility] [address] [place], [address] Neutrophils/100 WBC (Bld) 68.4 % Normal 47-70 [facility] Comment on above: Performed By: #### L 100.0100 ####[facility] [address] [place], [address] Nucleated RBC (Bld) [#/Vol] 0 10*3/uL Normal 0-5 [facility] Comment on above: Performed By: #### L 100.0100 ####[facility] [address] [place], [address] Platelet mean volume (Bld) [Entitic vol] 10.5 fL Normal 6.2-12.0 [facility] Comment on above: Performed By: #### L 100.0100 ####[facility] [address] [place], [address] Platelets (Bld) [#/Vol] 234 10*3/uL Normal 150-450 [facility] Comment on above: Performed By: #### L 100.0100 ####[facility] [address] [place], [address] RBC (Bld) [#/Vol] 2.85 10*6/uL Low 4.6-6.2 [facility] Comment on above: Performed By: #### L 100.0100 ####[facility] [address] [place], [address] RDW SD 53.4 fl High 35.1-43.9 [facility] Comment on above: Performed By: #### L 100.0100 ####[facility] [address] [place], [address] WBC (Bld) [#/Vol] 7.8 10*3/uL Normal 4.4-11.0 [facility] Comment on above: Performed By: #### L 100.0100 ####[facility] [address] [place], [address] Basic Metabolic Profile (BMP )on 08-30-2024 BUN/CRE 11.0 RATIO Normal 10-20 [facility] Comment on above: Performed By: #### L 500.2500, L100.0100 ####[facility] [address] [place], [address] Calcium [Mass/Vol] 8.7 mg/dL Normal 7.6-11.0 [facility] Comment on above: Performed By: #### L 500.2500, L100.0100 ####[facility] [address] [place], [address] Chloride [Moles/Vol] 92 mmol/L Low 98-108 [facility] Comment on above: Performed By: #### L 500.2500, L100.0100 ####[facility] [address] [place], [address] CO2 [Moles/Vol] 27.5 mmol/L Normal 21.0-32.0 [facility] Comment on above: Performed By: #### L 500.2500, L100.0100 ####[facility] [address] [place], [address] Creatinine [Mass/Vol] 5.42 mg/dL High 0.70-1.20 [facility] Comment on above: Performed By: #### L 500.2500, L100.0100 ####[facility] [address] [place], [address] ECRCL 12.64 ml/min Low 50-250 [facility] Comment on above: Performed By: #### L 500.2500, L100.0100 ####[facility] [address] [place], [address] GAP 14 Normal 5-15 [facility] Comment on above: Performed By: #### L 500.2500, L100.0100 ####[facility] [address] [place], [address] GFR/1.73 sq M.predicted among non-blacks MDRD (S/P/Bld) [Vol rate/Area] 10 mL/min/{1.73_m2} Low >60 [facility] Comment on above: Result Comment: mL/m in/1.73m2 CKD-EPI Creatinine Equation (2020) Performed By: #### L 500.2500, L100.0100 ####[facility] [address] [place], [address] Glucose [Mass/Vol] 196 mg/dL High 70-99 [facility] Comment on above: Performed By: #### L 500.2500, L100.0100 ####[facility] [address] [place], [address] Potassium [Moles/Vol] 5.2 mmol/L High 3.3-5.1 [facility] Comment on above: Performed By: #### L 500.2500, L100.0100 ####[facility] [address] [place], [address] Sodium [Moles/Vol] 134 mmol/L Normal 133-145 [facility] Comment on above: Performed By: #### L 500.2500, L100.0100 ####[facility] [address] [place], [address] Urea nitrogen [Mass/Vol] 60 mg/dL High 4-19 [facility] Comment on above: Performed By: #### L 500.2500, L100.0100 ####[facility] [address] [place], [address] Bedside Glucoseon 08-30-2024 FINGERSTICK GLU 285 mg/dL High 74-106 [facility] Comment on above: Result Comment: FANG ROLANDOENT OF PATIENT CARE PER NURSING PROTOCOL Performed By: #### L 501.080 ####[facility] [address] [place], [address] FINGERSTICK GLU 287 mg/dL High 74-106 [facility] Comment on above: Result Comment: FANG GEMENT OF PATIENT CARE PER NURSING PROTOCOL Performed By: #### L 501.080 ####[facility] [address] [place], [address] FINGERSTICK GLU 192 mg/dL High 74-106 [facility] Comment on above: Result Comment: FANG GEMENT OF PATIENT CARE PER NURSING PROTOCOL Performed By: #### L 501.080 ####[facility] [address] [place], [address] FINGERSTICK GLU 195 mg/dL High 74-106 [facility] Comment on above: Result Comment: FANG GEMENT OF PATIENT CARE PER NURSING PROTOCOL Performed By: #### L 501.080 ####[facility] [address] [place], [address] CBC W/Diff, Automatedon 04- 0-5 Absolute Lymph 1.31 X10 3/uL Normal 0.83-4.51 [facility] Comment on above: Performed By: #### L 500.2500, L100.0100 ####[facility] [address] [place], [address] Absolute Neut 7.1 X10 3/uL Normal 2.0-7.7 [facility] Comment on above: Performed By: #### L 500.2500, L100.0100 ####[facility] [address] [place], [address] Basophils/100 WBC (Bld) 0.5 % Normal 0-1 [facility] Comment on above: Performed By: #### L 500.2500, L100.0100 ####[facility] [address] [place], [address] Eosinophils/100 WBC (Bld) 0.9 % Normal 0-5 [facility] Comment on above: Performed By: #### L 500.2500, L100.0100 ####[facility] [address] [place], [address] Erythrocyte distribution width (RBC) [Ratio] 16.3 % High 11.6-14.6 [facility] Comment on above: Performed By: #### L 500.2500, L100.0100 ####[facility] [address] [place], [address] Hematocrit (Bld) [Volume fraction] 26.9 % Low 40-54 [facility] Comment on above: Performed By: #### L 500.2500, L100.0100 ####[facility] [address] [place], [address] Hemoglobin (Bld) [Mass/Vol] 7.9 g/dL Low 13.0-16.5 [facility] Comment on above: Performed By: #### L 500.2500, L100.0100 ####[facility] [address] [place], [address] IG% 0.600 Normal 0.0-0.9 [facility] Comment on above: Result Comment: IG% - Immature Granulocytes (promyelocytes, myelocytes andmetamyelocytes) > 1% indicates that a LEFT SHIFT is Present. Performed By: #### L 500.2500, L100.0100 ####[facility] [address] [place], [address] Lymphocytes/100 WBC (Bld) 13.4 % Low 19-41 [facility] Comment on above: Performed By: #### L 500.2500, L100.0100 ####[facility] [address] [place], [address] MCH (RBC) [Entitic mass] 26.8 pg Low 27.0-32.0 [facility] Comment on above: Performed By: #### L 500.2500, L100.0100 ####[facility] [address] [place], [address] MCHC (RBC) [Mass/Vol] 29.4 g/dL Low 32-36 [facility] Comment on above: Performed By: #### L 500.2500, L100.0100 ####[facility] [address] [place], [address] MCV (RBC) [Entitic vol] 91.2 fL Normal 80-94 [facility] Comment on above: Performed By: #### L 500.2500, L100.0100 ####[facility] [address] [place], [address] Monocytes/100 WBC (Bld) 12.2 % High 0-10 [facility] Comment on above: Performed By: #### L 500.2500, L100.0100 ####[facility] [address] [place], [address] Neutrophils/100 WBC (Bld) 72.4 % High 47-70 [facility] Comment on above: Performed By: #### L 500.2500, L100.0100 ####[facility] [address] [place], [address] Nucleated RBC (Bld) [#/Vol] 0 10*3/uL Normal 0-5 [facility] Comment on above: Performed By: #### L 500.2500, L100.0100 ####[facility] [address] [place], [address] Platelet mean volume (Bld) [Entitic vol] 10.7 fL Normal 6.2-12.0 [facility] Comment on above: Performed By: #### L 500.2500, L100.0100 ####[facility] [address] [place], [address] Platelets (Bld) [#/Vol] 279 10*3/uL Normal 150-450 [facility] Comment on above: Performed By: #### L 500.2500, L100.0100 ####[facility] [address] [place], [address] RBC (Bld) [#/Vol] 2.95 10*6/uL Low 4.6-6.2 [facility] Comment on above: Performed By: #### L 500.2500, L100.0100 ####[facility] [address] [place], [address] RDW SD 54.3 fl High 35.1-43.9 [facility] Comment on above: Performed By: #### L 500.2500, L100.0100 ####[facility] [address] [place], [address] WBC (Bld) [#/Vol] 9.8 10*3/uL Normal 4.4-11.0 [facility] Comment on above: Performed By: #### L 500.2500, L100.0100 ####[facility] [address] [place], [address] Consultation - Nephrologyon 08-30-2024 Consultation - Nephrology Normal [facility] Vancomycin, Random Levelon 0 08-30-2024 VANCO, RANDOM 12.3 ug/mL Normal 0.0-15.0 [facility] Comment on above: Result Comment: VANC OMYCIN STANDARD DRUG THERAPY: CRITICAL VALUE IS > 15.0 mg/LVANCOMYCIN HIGH INTENSITY THERAPY: CRITICAL VALUE IS > 20.0 mg/LPLEASE CONTACT PHARMACY SERVICES (#0877) FOR INTERPRETATIONOF RESULTS. THIS RESULT DOES NOT REPRESENT A PEAK OR TROUGHLEVEL FOR THIS DRUG. Performed By: #### L 501.8850 ####[facility] [address] [place], [address] Bedside Glucoseon 08-29-2024 FINGERSTICK GLU 218 mg/dL High 74-106 [facility] Comment on above: Result Comment: FNAG GEMENT OF PATIENT CARE PER NURSING PROTOCOL Performed By: #### L 501.080 ####[facility] [address] [place], [address] FINGERSTICK GLU 236 mg/dL High 74-106 [facility] Comment on above: Result Comment: FANG GEMENT OF PATIENT CARE PER NURSING PROTOCOL Performed By: #### L 501.080 ####[facility] [address] [place], [address] FINGERSTICK GLU 220 mg/dL High 74-106 [facility] Comment on above: Result Comment: FANG GEMENT OF PATIENT CARE PER NURSING PROTOCOL Performed By: #### L 501.080 ####[facility] [address] [place], [address] FINGERSTICK GLU 175 mg/dL High [address] [address] Comment on above: Result Comment: FANG GEMENT OF PATIENT CARE PER NURSING PROTOCOL Performed By: #### L 501.080 ####[facility] [address] [place], [address] Decalcification bone/plaqueo n 08-29-2024 Decalcification bone/plaque Normal [facility] Comment on above: Performed By: #### P DEC ####[facility] [address] [place], [address] H AND P Exam - Surgicalon H&P Exam - Surgical Normal [facility] MR/POSTOP.ANEon 08-29-2024 MR/POSTOP.ANE Normal [facility] MR/MRFNCWUZ0ls 08-29-2024 MR/POSTOPAN2 Normal [facility] Operative Reporton Operative Report Normal [facility] BRCon 08-28-[address] [facility] Comment on above: Result Comment: [id number] AP RC XM COMPATIBLE Performed By: #### B RC, L100.0500, BTSPAT, L500.2500 ####[facility] [address] [place], [address] Basic Metabolic Profile (BMP )on 08-28-2024 BUN/CRE 13.2 RATIO Normal 10-20 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 [address] 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 [address] [place], [address] Chloride [Moles/Vol] 93 mmol/L Low 98-108 [facility] Comment on above: Order Comment: 400.1 Amputation Below Knee (Right) Performed By: #### B RC, L100.0500, BTSPAT, L500.2500 ####[facility] [address] [place], [address] CO2 [Moles/Vol] 24.9 mmol/L Normal 21.0-32.0 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 [address] 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 [address] [place], [address] GAP 16 High 5-15 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 [address] [place], [address] GFR/1.73 sq M.predicted among non-blacks MDRD (S/P/Bld) [Vol rate/Area] 9 mL/min/{1.73_m2} Low >60 [facility] Comment on above: Order Comment: 400.1 Amputation Below Knee (Right) Result Comment: mL/m in/1.73m2 CKD-EPI Creatinine Equation (2020) Performed By: #### Too RC, L100.0500, BTSPAT, L500.2500 ####[facility] [address] [place], [address] Glucose [Mass/Vol] 93 mg/dL Normal 70-99 [facility] Comment on above: Order Comment: 400.1 Amputation Below Knee (Right) Performed By: #### Too RC, L100.0500, BTSPAT, L500.2500 ####[facility] [address] [place], [address] Potassium [Moles/Vol] 4.4 mmol/L Normal 3.3-5.1 [facility] Comment on above: Order Comment: 400.1 Amputation Below Knee (Right) Performed By: #### Too RC, L100.0500, BTSPAT, L500.2500 ####[facility] [address] [place], [address] Sodium [Moles/Vol] 134 mmol/L Normal 133-145 [facility] Comment on above: Order Comment: 400.1 Amputation Below Knee (Right) Performed By: #### Too RC, L100.0500, BTSPAT, L500.2500 ####[facility] [address] [place], [address] Urea nitrogen [Mass/Vol] 76 mg/dL High 4-19 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 [address] [place], [address] CBC-Complete Blood Cnt No Di ffon 08-28-2024 Erythrocyte distribution width (RBC) [Ratio] 16.2 % High 11.6-14.6 [facility] Comment on above: Order Comment: 400.1 Performed By: #### B RC, L100.0500, BTSPAT, L500.2500 ####[facility] [address] [place], [address] Hematocrit (Bld) [Volume fraction] 30.6 % Low 40-54 [facility] Comment on above: Order Comment: 400.1 Performed By: #### Too GARCIA, L100.0500, BTSPAT, L500.2500 ####[facility] [address] [place], [address] Hemoglobin (Bld) [Mass/Vol] 9.1 g/dL Low 13.0-16.5 [facility] Comment on above: Order Comment: 400.1 Performed By: #### Too GARCIA, L100.0500, BTSPAT, L500.2500 ####[facility] [address] [place], [address] MCH (RBC) [Entitic mass] 26.9 pg Low 27.0-32.0 [facility] Comment on above: Order Comment: 400.1 Performed By: #### B RC, L100.0500, BTSPAT, L500.2500 ####[facility] [address] [place], [address] MCHC (RBC) [Mass/Vol] 29.7 g/dL Low 32-36 [facility] Comment on above: Order Comment: 400.1 Performed By: #### B RC, L100.0500, BTSPAT, L500.2500 ####[facility] [address] [place], [address] MCV (RBC) [Entitic vol] 90.5 fL Normal 80-94 [facility] Comment on above: Order Comment: 400.1 Performed By: #### B RC, L100.0500, BTSPAT, L500.2500 ####[facility] [address] [place], [address] Platelet mean volume (Bld) [Entitic vol] 10.5 fL Normal 6.2-12.0 [facility] Comment on above: Order Comment: 400.1 Performed By: #### B RC, L100.0500, BTSPAT, L500.2500 ####[facility] [address] [place], [address] Platelets (Bld) [#/Vol] 321 10*3/uL Normal 150-450 [facility] Comment on above: Order Comment: 400.1 Performed By: #### B RC, L100.0500, BTSPAT, L500.2500 ####[facility] [address] [place], [address] RBC (Bld) [#/Vol] 3.38 10*6/uL Low 4.6-6.2 [facility] Comment on above: Order Comment: 400.1 Performed By: #### B RC, L100.0500, BTSPAT, L500.2500 ####[facility] [address] [place], [address] RDW SD 53.1 fl High 35.1-43.9 [facility] Comment on above: Order Comment: 400.1 Performed By: #### B RC, L100.0500, BTSPAT, L500.2500 ####[facility] [address] [place], [address] WBC (Bld) [#/Vol] 9.5 10*3/uL Normal 4.4-11.0 [facility] Comment on above: Order Comment: 400.1 Performed By: #### B RC, L100.0500, BTSPAT, L500.2500 ####[facility] [address] [place], [address] MR/PAT.ANEon 08-28-2024 MR/PAT.ANE Normal [facility] Type AND Screen - PAT ONLYon 08-28-2024 Ab SCREEN GEL Negative Normal [facility] Comment on above: Order Comment: SURGE RY DATE 08/29/2024 Amputation Below Knee (Right)[id number] Below Knee (Right)[id number] Below Knee (Right)TURNEYOTHER Performed By: #### B RC, L100.0500, BTSPAT, L500.2500 ####[facility] [address] [place], [address] Absolute lymphocyte countOrd ered By: Nando Wiggins on 08-27-2024 Lymphocytes Auto (Unsp spec) [#/Vol] 1.45 10*3/uL 0.83-4.51 [facility] Anion gap in Serum or Plasma Ordered By: Nando Wiggins on 08-27-2024 Anion gap [Moles/Vol] 15 mmol/L 5-15 [facility] Automated lymphocyte count a s percentage of total leukocytesOrdered By: Nando Wiggins on 08-27-2024 Lymphocytes/100 WBC Auto (Unsp spec) 16.0 % Low 19-41 [facility] BUN/creatinine ratioOrdered By: Nando Wiggins on 08-27-2024 Urea nitrogen/Creatinine [Mass ratio] 10.5 mg/mg 10-20 [facility] Basophil percentageOrdered B y: Nando Wiggins on 08-27-2024 Basophils/100 WBC (Bld) 0.6 % 0-1 [facility] Carbon dioxide, total [Moles /volume] in Central venous bloodOrdered By: Nando Wiggins on 08-27-2024 CO2 [Moles/Vol] 26.5 mmol/L 21.0-32.0 [facility] Chloride assayOrdered By: Kathie Wiggins on 08-27-2024 Chloride [Moles/Vol] 94 mmol/L Low 98-108 [facility] Eosinophil percentageOrdered By: Nando Wiggins 08-27-2024 Eosinophils/100 WBC (Bld) 2.3 % 0-5 [facility] Erythrocyte distribution wid th ratioOrdered By: Nando Wiggins on 08-27-2024 Erythrocyte distribution width (RBC) [Ratio] 16.3 % High 11.6-14.6 [facility] Erythrocyte distribution wid th standard deviationOrdered By: Nando Wiggins on 08-27-2024 Erythrocyte distribution width (RBC) [Ratio] 54.3 fl High 35.1-43.9 [facility] Glomerular filtration rate ( GFR) estimation/1.73 sq m using serum, plasma, or whole bOrdered By: Nando Wiggins on 08-27-2024 GFR/1.73 sq M.predicted among non-blacks MDRD (S/P/Bld) [Vol rate/Area] 10 mL/min/{1.73_m2} Low >60 [facility] Hematocrit Auto (Bld) [Volum e fraction]Ordered By: Nando Wiggins on 08-27-2024 Hematocrit (Bld) [Volume fraction] 30.4 % Low 40-54 [facility] Hemoglobin measurementOrdere d By: Nando Wiggins on 08-27-2024 Hemoglobin (Bld) [Mass/Vol] 9.0 g/dL Low 13.0-16.5 [facility] Immature granulocytes/100 WB C Auto (Bld)Ordered By: Nando Wiggins 08-27-2024 Immature granulocytes/100 WBC (Bld) 0.700 % 0.0-0.9 [facility] MCV (mean corpuscular volume ) determinationOrdered By: Nando Wiggins 08-27-2024 MCV (RBC) [Entitic vol] 91.3 fL 80-94 [facility] Mean corpuscular hemoglobin (MCH) determinationOrdered By: Brianwolf Edenlakshmidesiree on 08-27-2024 MCH (RBC) [Entitic mass] 27.0 pg 27.0-32.0 [facility] Monocyte percentageOrdered B y: Nando Wiggins on 08-27-2024 Monocytes/100 WBC (Bld) 10.7 % High 0-10 [facility] Neutrophil percentageOrdered By: Nando Wiggins on 08-27-2024 Neutrophils/100 WBC (Bld) 69.7 % 47-70 [facility] Platelet countOrdered By: Kathie penn Meekcheko on 08-27-2024 Platelets (Bld) [#/Vol] 300 10*3/uL 150-450 [facility] Potassium measurement (mass/ volume)Ordered By: Kathiebiancalilian Meekcheko on 08-27-2024 Potassium (Unsp spec) [Mass/Vol] 3.7 mmol/L 3.3-5.1 [facility] RBC Auto (Bld) [#/Vol]Ordere d By: Nando Wiggins on 08-27-2024 RBC (Bld) [#/Vol] 3.33 10*6/uL Low 4.6-6.2 [facility] Serum creatinine measurement (mass/volume)Ordered By: Kathiebiancalilian Meekcheko on 08-27-2024 Creatinine [Mass/Vol] 5.29 mg/dL High 0.70-1.20 [facility] Serum glucose measurement (m ass/volume)Ordered By: Kathiebiancalilian Meeklakshmidesiree on 08-27-2024 Glucose [Mass/Vol] 261 mg/dL High 70-99 [facility] Serum or plasma calcium lilli urement (mass/volume)Ordered By: Brianwolf Edenlakshmidesiree on 08-27-2024 Calcium [Mass/Vol] 8.8 mg/dL 7.6-11.0 [facility] Serum or plasma urea nitroge n measurement (mass/volume)Ordered By: Brianwolf Edenlakshmidesiree on 08-27-2024 Urea nitrogen [Mass/Vol] 55 mg/dL High 4-19 [facility] Sodium levelOrdered By: Deb quintana Meeklakshmidesiree on 04-07-2025 Sodium [Moles/Vol] 135 mmol/L 133-145 [facility] White blood cell (WBC) count Ordered By: Nando Wiggins on 08-27-2024 WBC (Bld) [#/Vol] 9.0 10*3/uL 4.4-11.0 [facility] Absolute lymphocyte countOrd ered By: Nando Wiggins on 08-20-2024 Lymphocytes Auto (Unsp spec) [#/Vol] 2.15 10*3/uL 0.83-4.51 [facility] Anion gap in Serum or Plasma Ordered By: Nando Wiggins on 08-20-2024 Anion gap [Moles/Vol] 15 mmol/L 5-15 [facility] Automated lymphocyte count a s percentage of total leukocytesOrdered By: Nando Wiggins on 08-20-2024 Lymphocytes/100 WBC Auto (Unsp spec) 25.2 % 19-41 [facility] BUN/creatinine ratioOrdered By: Nando Wiggins on 08-20-2024 Urea nitrogen/Creatinine [Mass ratio] 12.6 mg/mg 10-20 [facility] Basophil percentageOrdered B y: Nando Wiggins on 08-20-2024 Basophils/100 WBC (Bld) 0.8 % 0-1 [facility] Carbon dioxide, total [Moles /volume] in Central venous bloodOrdered By: Nando Wiggins on 08-20-2024 CO2 [Moles/Vol] 26.9 mmol/L 21.0-32.0 [facility] Chloride assayOrdered By: Kathie Wiggins on 08-20-2024 Chloride [Moles/Vol] 93 mmol/L Low 98-108 [facility] Eosinophil percentageOrdered By: Nando Wiggins on 08-20-2024 Eosinophils/100 WBC (Bld) 2.2 % 0-5 [facility] Erythrocyte distribution wid th ratioOrdered By: Nando Wiggins on 08-20-2024 Erythrocyte distribution width (RBC) [Ratio] 16.0 % High 11.6-14.6 [facility] Erythrocyte distribution wid th standard deviationOrdered By: Nando Wiggins on 08-20-2024 Erythrocyte distribution width (RBC) [Ratio] 54.5 fl High 35.1-43.9 [facility] Glomerular filtration rate ( GFR) estimation/1.73 sq m using serum, plasma, or whole bOrdered By: Nando Wiggins on 08-20-2024 GFR/1.73 sq M.predicted among non-blacks MDRD (S/P/Bld) [Vol rate/Area] 12 mL/min/{1.73_m2} Low >60 [facility] Hematocrit Auto (Bld) [Volum e fraction]Ordered By: Nando Wiggins on 08-20-2024 Hematocrit (Bld) [Volume fraction] 30.9 % Low 40-54 [facility] Hemoglobin measurementOrdere d By: Nando Wiggins on 08-20-2024 Hemoglobin (Bld) [Mass/Vol] 9.2 g/dL Low 13.0-16.5 [facility] Immature granulocytes/100 WB C Auto (Bld)Ordered By: Nando Wiggins on 08-20-2024 Immature granulocytes/100 WBC (Bld) 0.800 % 0.0-0.9 [facility] MCV (mean corpuscular volume ) determinationOrdered By: Nando Wiggins on 08-20-2024 MCV (RBC) [Entitic vol] 92.2 fL 80-94 [facility] Mean corpuscular hemoglobin (MCH) determinationOrdered By: biancalagunitaswolf Wiggins on 08-20-2024 MCH (RBC) [Entitic mass] 27.5 pg 27.0-32.0 [facility] Monocyte percentageOrdered B y: Nando Wiggins on 08-20-2024 Monocytes/100 WBC (Bld) 8.3 % 0-10 [facility] Neutrophil percentageOrdered By: fili Wiggins on 08-20-2024 Neutrophils/100 WBC (Bld) 62.7 % 47-70 [facility] Platelet countOrdered By: Kathie Wiggins on 08-20-2024 Platelets (Bld) [#/Vol] 321 10*3/uL 150-450 [facility] Potassium measurement (mass/ volume)Ordered By: Nando Wiggins on 08-20-2024 Potassium (Unsp spec) [Mass/Vol] 4.1 mmol/L 3.3-5.1 [facility] RBC Auto (Bld) [#/Vol]Ordere d By: Nando Wiggins on 08-20-2024 RBC (Bld) [#/Vol] 3.35 10*6/uL Low 4.6-6.2 [facility] Serum creatinine measurement (mass/volume)Ordered By: Nando Wiggins on 08-20-2024 Creatinine [Mass/Vol] 4.37 mg/dL High 0.70-1.20 [facility] Serum glucose measurement (m ass/volume)Ordered By: Nando Wiggins on 08-20-2024 Glucose [Mass/Vol] 85 mg/dL 70-99 [facility] Serum or plasma calcium lilli urement (mass/volume)Ordered By: Nando Wiggins on 08-20-2024 Calcium [Mass/Vol] 9.3 mg/dL 7.6-11.0 [facility] Serum or plasma urea nitroge n measurement (mass/volume)Ordered By: Nando Wiggins on 08-20-2024 Urea nitrogen [Mass/Vol] 55 mg/dL High 4-19 [facility] Sodium levelOrdered By: Deb Wiggins on 08-20-2024 Sodium [Moles/Vol] 134 mmol/L 133-145 [facility] White blood cell (WBC) count Ordered By: Nando Wiggins on 08-20-2024 WBC (Bld) [#/Vol] 8.5 10*3/uL 4.4-11.0 [facility] Absolute lymphocyte countOrd ered By: Nando Wiggins on 08-13-2024 Lymphocytes Auto (Unsp spec) [#/Vol] 1.80 10*3/uL 0.83-4.51 [facility] Anion gap in Serum or Plasma Ordered By: Nando Wiggins on 08-13-2024 Anion gap [Moles/Vol] 15 mmol/L 5-15 [facility] Automated lymphocyte count a s percentage of total leukocytesOrdered By: Nando Wiggins on 08-13-2024 Lymphocytes/100 WBC Auto (Unsp spec) 22.5 % 19-41 [facility] BUN/creatinine ratioOrdered By: Nando Wiggins on 08-13-2024 Urea nitrogen/Creatinine [Mass ratio] 8.8 mg/mg Low 10-20 [facility] Basophil percentageOrdered B y: Nando Wiggins on 08-13-2024 Basophils/100 WBC (Bld) 0.5 % 0-1 [facility] Bilirubin directOrdered By: Nando Wiggins on 08-13-2024 Bilirubin.direct [Mass/Vol] mg/dL 0.00-0.30 [facility] Bilirubin, totalOrdered By: Nando Wiggins on 08-13-2024 Bilirubin [Mass/Vol] 0.25 mg/dL 0.00-1.30 [facility] Carbon dioxide, total [Moles /volume] in Central venous bloodOrdered By: Nando Wiggins on 08-13-2024 CO2 [Moles/Vol] 25.2 mmol/L 21.0-32.0 [facility] Chloride assayOrdered By: Kathie Wiggins on 08-13-2024 Chloride [Moles/Vol] 94 mmol/L Low 98-108 [facility] Eosinophil percentageOrdered By: Nando Wiggins on 08-13-2024 Eosinophils/100 WBC (Bld) 2.6 % 0-5 [facility] Erythrocyte distribution wid th ratioOrdered By: Nando Wiggins on 08-13-2024 Erythrocyte distribution width (RBC) [Ratio] 16.8 % High 11.6-14.6 [facility] Erythrocyte distribution wid th standard deviationOrdered By: Nando Wiggins on 08-13-2024 Erythrocyte distribution width (RBC) [Ratio] 57.7 fl High 35.1-43.9 [facility] Glomerular filtration rate ( GFR) estimation/1.73 sq m using serum, plasma, or whole bOrdered By: Nando Wiggins on 08-13-2024 GFR/1.73 sq M.predicted among non-blacks MDRD (S/P/Bld) [Vol rate/Area] 13 mL/min/{1.73_m2} Low >60 [facility] Hematocrit Auto (Bld) [Volum e fraction]Ordered By: Nando Wiggins on 08-13-2024 Hematocrit (Bld) [Volume fraction] 28.8 % Low 40-54 [facility] Hemoglobin A1c percentageOrd ered By: Nando Wiggins on 08-13-2024 HbA1c (Bld) [Mass fraction] 6.1 % >5.7 [facility] Hemoglobin measurementOrdere d By: Nando Wiggins on 08-13-2024 Hemoglobin (Bld) [Mass/Vol] 8.6 g/dL Low 13.0-16.5 [facility] Immature granulocytes/100 WB C Auto (Bld)Ordered By: Nando Wiggins on 08-13-2024 Immature granulocytes/100 WBC (Bld) 0.400 % 0.0-0.9 [facility] MCV (mean corpuscular volume ) determinationOrdered By: Nando Wiggins on 08-13-2024 MCV (RBC) [Entitic vol] 94.4 fL High 80-94 [facility] Mean corpuscular hemoglobin (MCH) determinationOrdered By: Nando Wiggins on 08-13-2024 MCH (RBC) [Entitic mass] 28.2 pg 27.0-32.0 [facility] Monocyte percentageOrdered B y: Nando Wiggins on 08-13-2024 Monocytes/100 WBC (Bld) 10.7 % High 0-10 [facility] Neutrophil percentageOrdered By: Nando Wiggins on 08-13-2024 Neutrophils/100 WBC (Bld) 63.3 % 47-70 [facility] No Panel InformationOrdered By: Nando Wiggins on 08-13-2024 18 U/L <38 [facility] Platelet countOrdered By: Kathie Wiggins on 08-13-2024 Platelets (Bld) [#/Vol] 265 10*3/uL 150-450 [facility] Potassium measurement (mass/ volume)Ordered By: Nando Wiggins on 08-13-2024 Potassium (Unsp spec) [Mass/Vol] 3.9 mmol/L 3.3-5.1 [facility] RBC Auto (Bld) [#/Vol]Ordere d By: Nando Wiggins on 08-13-2024 RBC (Bld) [#/Vol] 3.05 10*6/uL Low 4.6-6.2 [facility] Serum creatinine measurement (mass/volume)Ordered By: Nando Wiggins on 08-13-2024 Creatinine [Mass/Vol] 4.28 mg/dL High 0.70-1.20 [facility] Serum globulin measurementOr dered By: Nando Wiggins on 08-13-2024 Globulin (S) [Mass/Vol] 3.8 g/dL 2.2-4.2 [facility] Serum glucose measurement (m ass/volume)Ordered By: Nando Wiggins on 08-13-2024 Glucose [Mass/Vol] 96 mg/dL 70-99 [facility] Serum or plasma alanine hawkins otransferase (ALT) measurementOrdered By: Nando Wiggins on 08-13-2024 ALT [Catalytic activity/Vol] 8 U/L <47 [facility] Serum or plasma albumin lilli urement (mass/volume)Ordered By: Nando Wiggins on 08-13-2024 Albumin [Mass/Vol] 2.8 g/dL Low 3.4-4.8 [facility] Serum or plasma alkaline penelope sphatase measurementOrdered By: Nando Wiggins on 08-13-2024 ALP [Catalytic activity/Vol] 56 U/L 40-129 [facility] Serum or plasma calcium lilli urement (mass/volume)Ordered By: Nando Wiggins on 08-13-2024 Calcium [Mass/Vol] 9.0 mg/dL 7.6-11.0 [facility] Serum or plasma urea nitroge n measurement (mass/volume)Ordered By: Nando Wiggins on 08-13-2024 Urea nitrogen [Mass/Vol] 38 mg/dL High 4-19 [facility] Sodium levelOrdered By: Deb Wiggins on 08-13-2024 Sodium [Moles/Vol] 134 mmol/L 133-145 [facility] Total proteinOrdered By: Sinan kermitwolf Wiggins on 08-13-2024 Protein [Mass/Vol] 6.6 g/dL 5.9-8.4 [facility] Vitamin B12 ser/plasOrdered By: Nando Wiggins on 08-13-2024 Cobalamin (Vitamin B12) [Mass/Vol] 782 pg/mL 180-914 [facility] White blood cell (WBC) count Ordered By: Nando Wiggins on 08-13-2024 WBC (Bld) [#/Vol] 8.0 10*3/uL 4.4-11.0 [facility] Absolute lymphocyte countOrd ered By: Nando Wiggins on 08-06-2024 Lymphocytes Auto (Unsp spec) [#/Vol] 1.82 10*3/uL 0.83-4.51 [facility] Anion gap in Serum or Plasma Ordered By: Nando Wiggins on 08-06-2024 Anion gap [Moles/Vol] 14 mmol/L 5-15 [facility] Automated lymphocyte count a s percentage of total leukocytesOrdered By: Nando Wiggins on 08-06-2024 Lymphocytes/100 WBC Auto (Unsp spec) 19.7 % 19-41 [facility] BUN/creatinine ratioOrdered By: Nando Wiggins on 08-06-2024 Urea nitrogen/Creatinine [Mass ratio] 11.0 mg/mg 10-20 [facility] Basophil percentageOrdered B y: Nando Wiggins on 08-06-2024 Basophils/100 WBC (Bld) 0.4 % 0-1 [facility] Carbon dioxide, total [Moles /volume] in Central venous bloodOrdered By: Nando Wiggins on 08-06-2024 CO2 [Moles/Vol] 26.0 mmol/L 21.0-32.0 [facility] Chloride assayOrdered By: Kathie Wiggins on 08-06-2024 Chloride [Moles/Vol] 92 mmol/L Low 98-108 [facility] Eosinophil percentageOrdered By: Nando Wiggins on 08-06-2024 Eosinophils/100 WBC (Bld) 2.6 % 0-5 [facility] Erythrocyte distribution wid th ratioOrdered By: Debsrinathwolf Edenlakshmidesiree on 08-06-2024 Erythrocyte distribution width (RBC) [Ratio] 16.6 % High 11.6-14.6 [facility] Erythrocyte distribution wid th standard deviationOrdered By: fili Wiggins on 08-06-2024 Erythrocyte distribution width (RBC) [Ratio] 56.6 fl High 35.1-43.9 [facility] Glomerular filtration rate ( GFR) estimation/1.73 sq m using serum, plasma, or whole bOrdered By: biancalagunitaswolf Wiggins on 08-06-2024 GFR/1.73 sq M.predicted among non-blacks MDRD (S/P/Bld) [Vol rate/Area] 12 mL/min/{1.73_m2} Low >60 [facility] Hematocrit Auto (Bld) [Volum e fraction]Ordered By: Nando Wiggins on 08-06-2024 Hematocrit (Bld) [Volume fraction] 27.3 % Low 40-54 [facility] Hemoglobin measurementOrdere d By: biancalagunitaswolf Wiggins on 08-06-2024 Hemoglobin (Bld) [Mass/Vol] 8.1 g/dL Low 13.0-16.5 [facility] Immature granulocytes/100 WB C Auto (Bld)Ordered By: Nando Wiggins on 08-06-2024 Immature granulocytes/100 WBC (Bld) 1.000 % High 0.0-0.9 [facility] MCV (mean corpuscular volume ) determinationOrdered By: Nando Wiggins on 08-06-2024 MCV (RBC) [Entitic vol] 93.5 fL 80-94 [facility] Mean corpuscular hemoglobin (MCH) determinationOrdered By: biancalagunitaswolf Wiggins on 08-06-2024 MCH (RBC) [Entitic mass] 27.7 pg 27.0-32.0 [facility] Monocyte percentageOrdered B y: Nando Wiggins on 08-06-2024 Monocytes/100 WBC (Bld) 12.1 % High 0-10 [facility] Neutrophil percentageOrdered By: Kathiebiancasrinathwolf Edenlakshmidesiree on 08-06-2024 Neutrophils/100 WBC (Bld) 64.2 % 47-70 [facility] Platelet countOrdered By: Kathie rehanwolf Edenlakshmidesiree on 08-06-2024 Platelets (Bld) [#/Vol] 263 10*3/uL 150-450 [facility] Potassium measurement (mass/ volume)Ordered By: Kathiebiancasrinathwolf Edenlakshmidesiree on 08-06-2024 Potassium (Unsp spec) [Mass/Vol] 3.4 mmol/L 3.3-5.1 [facility] RBC Auto (Bld) [#/Vol]Ordere d By: Kathiebiancasrinathwolf Edencheko on 08-06-2024 RBC (Bld) [#/Vol] 2.92 10*6/uL Low 4.6-6.2 [facility] Serum creatinine measurement (mass/volume)Ordered By: Kathiebiancasrinathwolf Edenlakshmidesiree on 08-06-2024 Creatinine [Mass/Vol] 4.43 mg/dL High 0.70-1.20 [facility] Serum glucose measurement (m ass/volume)Ordered By: Kathiebiancasrinathwolf Edenlakshmidesiree on 08-06-2024 Glucose [Mass/Vol] 318 mg/dL High 70-99 [facility] Serum or plasma calcium lilli urement (mass/volume)Ordered By: Kathiebiancasrinathwolf Edenlakshmidesiree on 08-06-2024 Calcium [Mass/Vol] 8.7 mg/dL 7.6-11.0 [facility] Serum or plasma urea nitroge n measurement (mass/volume)Ordered By: Nando Wiggins on 08-06-2024 Urea nitrogen [Mass/Vol] 49 mg/dL High 4-19 [facility] Sodium levelOrdered By: Deb quintana Meeklakshmidesiree on 08-06-2024 Sodium [Moles/Vol] 131 mmol/L Low 133-145 [facility] White blood cell (WBC) count Ordered By: Nando Edenlakshmidesiree on 08-06-2024 WBC (Bld) [#/Vol] 9.3 10*3/uL 4.4-11.0 [facility] Absolute lymphocyte countOrd ered By: Des Garcia on 08-01-2024 Lymphocytes Auto (Unsp spec) [#/Vol] 1.79 10*3/uL 0.83-4.51 [facility] Automated blood erythrocyte countOrdered By: Des Garcia on 08-01-2024 RBC (Bld) [#/Vol] 2.95 10*6/uL Low 4.6-6.2 [facility] Comment on above: Performed By: #### L 100.0100 ####[facility] [address] [facility] [id number] Automated blood hematocrit ( percentage)Ordered By: Des Jallohne on 08-01-2024 Hematocrit (Bld) [Volume fraction] 27.6 % Low 40-54 [facility] Comment on above: Performed By: #### L 100.0100 ####[facility] [address] [place] [id number] Automated lymphocyte count a s percentage of total leukocytesOrdered By: Des Jallohne on 08-01-2024 Lymphocytes/100 WBC Auto (Unsp spec) 20.9 % 19-41 [facility] Basophil percentageOrdered B y: Des Jallohne on 08-01-2024 Basophils/100 WBC (Bld) 0.7 % Normal 0-1 [facility] Comment on above: Performed By: #### L 100.0100 ####[facility] [address] [place] [id number] CBC W/Diff, Automatedon 07-21 Absolute Lymph 1.79 X10 3/uL Normal 0.83-4.51 [facility] Comment on above: Performed By: #### L 100.0100 ####[facility] [address] [facility] [phone] Absolute Neut 5.3 X10 3/uL Normal 2.0-7.7 [facility] Comment on above: Performed By: #### L 100.0100 ####[facility] [address] [facility] [address] IG% 0.500 Normal 0.0-0.9 [facility] Comment on above: Result Comment: IG% - Immature Granulocytes (promyelocytes, myelocytes andmetamyelocytes) > 1% indicates that a LEFT SHIFT is Present. Performed By: #### L 100.0100 ####[facility] [address] [place], [address] Lymphocytes/100 WBC (Bld) 20.9 % Normal 19-41 [facility] Comment on above: Performed By: #### L 100.0100 ####[facility] [address] [place], [address] MCHC (RBC) [Mass/Vol] 29.3 g/dL Low 32-36 [facility] Comment on above: Performed By: #### L 100.0100 ####[facility] [address] [place], [address] Nucleated RBC (Bld) [#/Vol] 0 10*3/uL Normal 0-5 [facility] Comment on above: Performed By: #### L 100.0100 ####[facility] [address] [place], [address] Platelet mean volume (Bld) [Entitic vol] 10.6 fL Normal 6.2-12.0 [facility] Comment on above: Performed By: #### L 100.0100 ####[facility] [address] [place], [address] RDW SD 57.8 fl High 35.1-43.9 [facility] Comment on above: Performed By: #### L 100.0100 ####[facility] [address] [place], [address] Emergency Department Summary on 08-01-2024 [address] Normal [facility] Eosinophil percentageOrdered By: Des Garcia on 08-01-2024 Eosinophils/100 WBC (Bld) 3.9 % Normal 0-5 [facility] Comment on above: Performed By: #### L 100.0100 ####[facility] [address] [place], [place], [phone](231) Erythrocyte distribution wid th ratioOrdered By: Des Garcia on 08-01-2024 Erythrocyte distribution width (RBC) [Ratio] 16.9 % High 11.6-14.6 [facility] Comment on above: Performed By: #### L 100.0100 ####[facility] [address] [place], [place], [phone]) Erythrocyte distribution wid th standard deviationOrdered By: Des Garcia on 08-01-2024 Erythrocyte distribution width (RBC) [Ratio] 57.8 fl High 35.1-43.9 [facility] Foot min 3 Viewson 5 Foot min [address] [facility] Hemoglobin measurementOrdere d By: Des Garcia on 08-01-2024 Hemoglobin (Bld) [Mass/Vol] 8.1 g/dL Low 13.0-16.5 [facility] Comment on above: Performed By: #### L 100.0100 ####[facility] [address] [place], [place], [phone] Immature granulocytes/100 WB C Auto (Bld)Ordered By: Des Garcia on 08-01-2024 Immature granulocytes/100 WBC (Bld) 0.500 % 0.0-0.9 [facility] MCV (mean corpuscular volume ) determinationOrdered By: Des Garcia on 08-01-2024 MCV (RBC) [Entitic vol] 93.6 fL Normal 80-94 [facility] Comment on above: Performed By: #### L 100.0100 ####[facility] [address] [place], [place], [phone](001) Mean corpuscular hemoglobin (MCH) determinationOrdered By: Des Garcia on 08-01-2024 MCH (RBC) [Entitic mass] 27.5 pg Normal 27.0-32.0 [facility] Comment on above: Performed By: #### L 100.0100 ####[facility] [address] [place], [address] Monocyte percentageOrdered B y: Des Garcia on 08-01-2024 Monocytes/100 WBC (Bld) 12.3 % High 0-10 [facility] Comment on above: Performed By: #### L 100.0100 ####[facility] [address] [place], [address] Neutrophil percentageOrdered By: Des Garcia on 08-01-2024 Neutrophils/100 WBC (Bld) 61.7 % Normal 47-70 [facility] Comment on above: Performed By: #### L 100.0100 ####[facility] [address] [place], [address] Platelet countOrdered By: Kana Garcia on 08-01-2024 Platelets (Bld) [#/Vol] 290 10*3/uL Normal 150-450 [facility] Comment on above: Performed By: #### L 100.0100 ####[facility] [address] [place], [address] White blood cell (WBC) count Ordered By: Des Garcia on 08-01-2024 WBC (Bld) [#/Vol] 8.6 10*3/uL Normal 4.4-11.0 [facility] Comment on above: Performed By: #### L 100.0100 ####[facility] [address] [place], [address] Absolute lymphocyte countOrd ered By: Nando Wiggins on 07-30-2024 Lymphocytes Auto (Unsp spec) [#/Vol] 1.74 10*3/uL 0.83-4.51 [facility] Anion gap in Serum or Plasma Ordered By: Nando Wiggins on 07-30-2024 Anion gap [Moles/Vol] 16 mmol/L High 5-15 [facility] Automated lymphocyte count a s percentage of total leukocytesOrdered By: Nando Wiggins on 07-30-2024 Lymphocytes/100 WBC Auto (Unsp spec) 19.2 % 19-41 [facility] BUN/creatinine ratioOrdered By: Nando Wiggins on 07-30-2024 Urea nitrogen/Creatinine [Mass ratio] 8.4 mg/mg Low 10-20 [facility] Basophil percentageOrdered B y: Nando Wiggins on 07-30-2024 Basophils/100 WBC (Bld) 0.6 % 0-1 [facility] Carbon dioxide, total [Moles /volume] in Central venous bloodOrdered By: Nando Wiggins on 07-30-2024 CO2 [Moles/Vol] 26.4 mmol/L 21.0-32.0 [facility] Chloride assayOrdered By: Kathie Wiggins on 07-30-2024 Chloride [Moles/Vol] 91 mmol/L Low 98-108 [facility] Eosinophil percentageOrdered By: Nando Wiggins on 07-30-2024 Eosinophils/100 WBC (Bld) 2.8 % 0-5 [facility] Erythrocyte distribution wid th ratioOrdered By: Nando Wiggins on 07-30-2024 Erythrocyte distribution width (RBC) [Ratio] 17.2 % High 11.6-14.6 [facility] Erythrocyte distribution wid th standard deviationOrdered By: Nando Wiggins on 07-30-2024 Erythrocyte distribution width (RBC) [Ratio] 58.1 fl High 35.1-43.9 [facility] Glomerular filtration rate ( GFR) estimation/1.73 sq m using serum, plasma, or whole bOrdered By: Nando Wiggins on 07-30-2024 GFR/1.73 sq M.predicted among non-blacks MDRD (S/P/Bld) [Vol rate/Area] 13 mL/min/{1.73_m2} Low >60 [facility] Hematocrit Auto (Bld) [Volum e fraction]Ordered By: Nando Wiggins on 07-30-2024 Hematocrit (Bld) [Volume fraction] 26.5 % Low 40-54 [facility] Hemoglobin measurementOrdere d By: Nando Wiggins on 07-30-2024 Hemoglobin (Bld) [Mass/Vol] 8.1 g/dL Low 13.0-16.5 [facility] Immature granulocytes/100 WB C Auto (Bld)Ordered By: Nando Edenlakshmidesiree on 07-30-2024 Immature granulocytes/100 WBC (Bld) 0.800 % 0.0-0.9 [facility] MCV (mean corpuscular volume ) determinationOrdered By: Nando Wiggins on 07-30-2024 MCV (RBC) [Entitic vol] 92.3 fL 80-94 [facility] Mean corpuscular hemoglobin (MCH) determinationOrdered By: Nando Edenlakshmidesiree on 07-30-2024 MCH (RBC) [Entitic mass] 28.2 pg 27.0-32.0 [facility] Monocyte percentageOrdered B y: Nando Edenlakshmidesiree on 07-30-2024 Monocytes/100 WBC (Bld) 9.2 % 0-10 [facility] Neutrophil percentageOrdered By: biancalilian Meeklakshmidesiree on 07-30-2024 Neutrophils/100 WBC (Bld) 67.4 % 47-70 [facility] Platelet countOrdered By: Kathie fili Meeklakshmidesiree on 07-30-2024 Platelets (Bld) [#/Vol] 334 10*3/uL 150-450 [facility] Potassium measurement (mass/ volume)Ordered By: Nando Wiggins on 07-30-2024 Potassium (Unsp spec) [Mass/Vol] 3.6 mmol/L 3.3-5.1 [facility] RBC Auto (Bld) [#/Vol]Ordere d By: Nando Meeklakshmidesiree on 07-30-2024 RBC (Bld) [#/Vol] 2.87 10*6/uL Low 4.6-6.2 [facility] Serum creatinine measurement (mass/volume)Ordered By: Nando Wiggins on 07-30-2024 Creatinine [Mass/Vol] 4.20 mg/dL High 0.70-1.20 [facility] Serum glucose measurement (m ass/volume)Ordered By: Nando Wiggins on 07-30-2024 Glucose [Mass/Vol] 173 mg/dL High 70-99 [facility] Serum or plasma calcium lilli urement (mass/volume)Ordered By: Nando Wiggins on 07-30-2024 Calcium [Mass/Vol] 8.5 mg/dL 7.6-11.0 [facility] Serum or plasma urea nitroge n measurement (mass/volume)Ordered By: Nando Wiggins on 07-30-2024 Urea nitrogen [Mass/Vol] 35 mg/dL High 4-19 [facility] Sodium levelOrdered By: Deb Wiggins on 07-30-2024 Sodium [Moles/Vol] 133 mmol/L 133-145 [facility] White blood cell (WBC) count Ordered By: Nando Wiggins on 07-30-2024 WBC (Bld) [#/Vol] 9.1 10*3/uL 4.4-11.0 [facility] Acid Fast Bacillus Cultureon 07-25-2024 tAFBC [facility] Comment on above: Performed By: #### M 100.3000, M600.2200, M300.2000, M100.4001, M300.3000, M100.2000, M600.1999 ####[facility] [address] [place], [place], [id number] Acid Fast Bacillus Smear/Flu oron 07-25-[address] [facility] Comment on above: Performed By: #### M 100.3000, M600.2200, M300.2000, M100.4001, M300.3000, M100.2000, M600.2000 ####[facility] [address] [place], [place], [id number] Culture, Fungus 8482on 07-[address] [facility] Comment on above: Performed By: #### M 100.3000, M600.2200, M300.2000, M100.4001, M300.3000, M100.2000, M600.2000 ####[facility] [address] [place], [address] Fungus Stain 8136on 07-26-[address] [facility] Comment on above: Performed By: #### M 100.3000, M600.2200, M300.2000, M100.4001, M300.3000, M100.2000, M600.2000 ####[facility] [address] [place], [address] Absolute lymphocyte countOrd ered By: Nando Wiggins on 07-23-2024 Lymphocytes Auto (Unsp spec) [#/Vol] 2.13 10*3/uL 0.83-4.51 [facility] Automated lymphocyte count a s percentage of total leukocytesOrdered By: Nando Wiggins on 07-23-2024 Lymphocytes/100 WBC Auto (Unsp spec) 17.3 % Low 19-41 [facility] BUN/creatinine ratioOrdered By: Nando Wiggins on 07-23-2024 Urea nitrogen/Creatinine [Mass ratio] 14.6 mg/mg 10- [facility] Basic Metabolic Profile (BMP )on 07-23-2024 BUN Normal -18 [facility] Comment on above: Result Comment: Canc elled via OM: Order cancelled - Patient discharged Performed By: #### L 100.0100, L500.2500 ####[facility] [address] [place], [address] BUN/CRE Normal 10- [facility] Comment on above: Result Comment: Canc elled via OM: Order cancelled - Patient discharged Performed By: #### L 100.0100, L500.2500 ####[facility] [address] [place], [address] Calcium Normal 8.5-10.1 [facility] Comment on above: Result Comment: Canc elled via OM: Order cancelled - Patient discharged Performed By: #### L 100.0100, L500.2500 ####[facility] [address] [place], [address] CL Normal 98-107 [facility] Comment on above: Result Comment: Canc elled via OM: Order cancelled - Patient discharged Performed By: #### L 100.0100, L500.2500 ####[facility] [address] [place], [address] CO2 Normal 21.0-32.0 [facility] Comment on above: Result Comment: Canc elled via OM: Order cancelled - Patient discharged Performed By: #### L 100.0100, L500.2500 ####[facility] [address] [place], [address] CREAT,SERUM Normal 0.70-1.30 [facility] Comment on above: Result Comment: Canc elled via OM: Order cancelled - Patient discharged Performed By: #### L 100.0100, L500.2500 ####[facility] [address] [place], [address] eGFR Normal >60 [facility] Comment on above: Result Comment: Canc elled via OM: Order cancelled - Patient discharged Performed By: #### L 100.0100, L500.2500 ####[facility] [address] [place], [address] EST GFR - AA Normal >60 [facility] Comment on above: Result Comment: Canc elled via OM: Order cancelled - Patient discharged Performed By: #### L 100.0100, L500.2500 ####[facility] [address] [place], [address] GAP Normal 5-15 [facility] Comment on above: Result Comment: Canc elled via OM: Order cancelled - Patient discharged Performed By: #### L 100.0100, L500.2500 ####[facility] [address] [place], [address] GLU Normal 74-106 [facility] Comment on above: Result Comment: Canc elled via OM: Order cancelled - Patient discharged Performed By: #### L 100.0100, L500.2500 ####[facility] [address] [place], [address] Potassium Normal 3.5-5.1 [facility] Comment on above: Result Comment: Canc elled via OM: Order cancelled - Patient discharged Performed By: #### L 100.0100, L500.2500 ####[facility] [address] [place], [address] Basic Metabolic Profile (BMP) Normal 136-145 [facility] Comment on above: Result Comment: Canc elled via OM: Order cancelled - Patient discharged Performed By: #### L 100.0100, L500.2500 ####[facility] [address] [place], [address] Basophil percentageOrdered B y: Efewongwolf Brownee on 07-23-2024 Basophils/100 WBC (Bld) 0.7 % 0-1 [facility] CBC W/Diff, Automatedon 03 Absolute Neut Normal 2.0-7.7 [facility] Comment on above: Result Comment: Canc elled via OM: Order cancelled - Patient discharged Performed By: #### L 100.0100, L500.2500 ####[facility] [address] [place], [address] HCT Normal 40-54 [facility] Comment on above: Result Comment: Canc elled via OM: Order cancelled - Patient discharged Performed By: #### L 100.0100, L500.2500 ####[facility] [address] [place], [address] HGB Normal 13.0-16.5 [facility] Comment on above: Result Comment: Canc elled via OM: Order cancelled - Patient discharged Performed By: #### L 100.0100, L500.2500 ####[facility] [address] [place], [address] MCH Normal 27.0-32.0 [facility] Comment on above: Result Comment: Canc elled via OM: Order cancelled - Patient discharged Performed By: #### L 100.0100, L500.2500 ####[facility] [address] [place], [address] MCHC Normal 32-36 [facility] Comment on above: Result Comment: Canc elled via OM: Order cancelled - Patient discharged Performed By: #### L 100.0100, L500.2500 ####[facility] [address] [place], [address] MCV Normal 80-94 [facility] Comment on above: Result Comment: Canc elled via OM: Order cancelled - Patient discharged Performed By: #### L 100.0100, L500.2500 ####[facility] [address] [place], [address] NEUT% Normal 47-70 [facility] Comment on above: Result Comment: Canc elled via OM: Order cancelled - Patient discharged Performed By: #### L 100.0100, L500.2500 ####[facility] [address] [place], [address] PLT Normal 150-450 [facility] Comment on above: Result Comment: Canc elled via OM: Order cancelled - Patient discharged Performed By: #### L 100.0100, L500.2500 ####[facility] [address] [place], [address] RBC Normal 4.6-6.2 [facility] Comment on above: Result Comment: Canc elled via OM: Order cancelled - Patient discharged Performed By: #### L 100.0100, L500.2500 ####[facility] [address] [place], [address] RDW CV Normal 11.6-14.6 [facility] Comment on above: Result Comment: Canc elled via OM: Order cancelled - Patient discharged Performed By: #### L 100.0100, L500.2500 ####[facility] [address] [place], [address] RDW SD Normal 35.1-43.9 [facility] Comment on above: Result Comment: Canc elled via OM: Order cancelled - Patient discharged Performed By: #### L 100.0100, L500.2500 ####[facility] [address] [place], [address] WBC Normal 4.4-11.0 [facility] Comment on above: Result Comment: Canc elled via OM: Order cancelled - Patient discharged Performed By: #### L 100.0100, L500.2500 ####[facility] [address] [place], [address] Carbon dioxide measurementOr dered By: Nando Wiggins on 07-23-2024 CO2 [Moles/Vol] 27.0 mmol/L 22.0-29.0 [facility] Chloride measurementOrdered By: Nando Wiggins on 07-23-2024 Chloride [Moles/Vol] 95 mmol/L Low 96-108 [facility] Comprehensive Metabolic Prof ilon 07-23-2024 ALB Normal 3.4-4.8 [facility] Comment on above: Result Comment: NOT DRAWN PATIENT DIDN'T COME TO LAB Performed By: #### L 500.4050 ####[facility] [address] [place], [address] ALK PHOS Normal 40-129 [facility] Comment on above: Result Comment: NOT DRAWN PATIENT DIDN'T COME TO LAB Performed By: #### L 500.4050 ####[facility] [address] [place], [address] ALT Normal <=46 [facility] Comment on above: Result Comment: NOT DRAWN PATIENT DIDN'T COME TO LAB Performed By: #### L 500.4050 ####[facility] [address] [place], [address] Anion Gap Normal 5-15 [facility] Comment on above: Result Comment: NOT DRAWN PATIENT DIDN'T COME TO LAB Performed By: #### L 500.4050 ####[facility] [address] [place], [address] AST Normal <=37 [facility] Comment on above: Result Comment: NOT DRAWN PATIENT DIDN'T COME TO LAB Performed By: #### L 500.4050 ####[facility] [address] [place], [address] Chloride Normal 96-108 [facility] Comment on above: Result Comment: NOT DRAWN PATIENT DIDN'T COME TO LAB Performed By: #### L 500.4050 ####[facility] [address] [place], [address] Sodium Normal 133-145 [facility] Comment on above: Result Comment: NOT DRAWN PATIENT DIDN'T COME TO LAB Performed By: #### L 500.4050 ####[facility] [address] [place], [address] T BILI Normal 0.00-1.30 [facility] Comment on above: Result Comment: NOT DRAWN PATIENT DIDN'T COME TO LAB Performed By: #### L 500.4050 ####[facility] [address] [place], [address] T PROT Normal 5.9-8.4 [facility] Comment on above: Result Comment: NOT DRAWN PATIENT DIDN'T COME TO LAB Performed By: #### L 500.4050 ####[facility] [address] [place], [address] Culture, Anaerobic Any Sourc reed 07-23-[address] [facility] Comment on above: Performed By: #### M 100.2910, M100.4001, M100.1999 ####[facility] [address] [place], [address] Eosinophil percentageOrdered By: Nando Wiggins on 07-23-2024 Eosinophils/100 WBC (Bld) 1.3 % 0-5 [facility] Erythrocyte distribution wid th ratioOrdered By: Nando Wiggins on 07-23-2024 Erythrocyte distribution width (RBC) [Ratio] 17.1 % High 11.6-14.6 [facility] Erythrocyte distribution wid th standard deviationOrdered By: Deblagunitaswolf Wiggins on 07-23-2024 Erythrocyte distribution width (RBC) [Ratio] 58.3 fl High 35.1-43.9 [facility] Glomerular filtration rate ( GFR) estimation/1.73 sq m using serum, plasma, or whole bOrdered By: Nando Wiggins on 07-23-2024 GFR/1.73 sq M.predicted among non-blacks MDRD (S/P/Bld) [Vol rate/Area] 13 mL/min/{1.73_m2} Low >60 [facility] Hematocrit Auto (Bld) [Volum e fraction]Ordered By: Nando Wiggins on 07-23-2024 Hematocrit (Bld) [Volume fraction] 26.1 % Low 40-54 [facility] Hemoglobin measurementOrdere d By: Nando Wiggins on 07-23-2024 Hemoglobin (Bld) [Mass/Vol] 7.8 g/dL Low 13.0-16.5 [facility] Immature granulocytes/100 WB C Auto (Bld)Ordered By: Nando Wiggins on 07-23-2024 Immature granulocytes/100 WBC (Bld) 2.100 % High 0.0-0.9 [facility] MCV (mean corpuscular volume ) determinationOrdered By: Nando Wiggins on 07-23-2024 MCV (RBC) [Entitic vol] 93.5 fL 80-94 [facility] Mean corpuscular hemoglobin (MCH) determinationOrdered By: Nando Wiggins on 07-23-2024 MCH (RBC) [Entitic mass] 28.0 pg 27.0-32.0 [facility] Monocyte percentageOrdered B y: Nando Wiggins on 07-23-2024 Monocytes/100 WBC (Bld) 7.7 % 0-10 [facility] Neutrophil percentageOrdered By: Nando Wiggins on 07-23-2024 Neutrophils/100 WBC (Bld) 70.9 % High 47-70 [facility] Platelet countOrdered By: Kathie biancalilian Wiggins on 07-23-2024 Platelets (Bld) [#/Vol] 451 10*3/uL High 150-450 [facility] RBC Auto (Bld) [#/Vol]Ordere d By: Nando Wiggins on 07-23-2024 RBC (Bld) [#/Vol] 2.79 10*6/uL Low 4.6-6.2 [facility] Serum creatinine measurement (mass/volume)Ordered By: Nando Wiggins on 07-23-2024 Creatinine [Mass/Vol] 4.11 mg/dL High 0.70-1.20 [facility] Serum glucose measurement (m ass/volume)Ordered By: Nando Wiggins on 07-23-2024 Glucose [Mass/Vol] 147 mg/dL High 70-99 [facility] Serum or plasma anion gap de termination (moles/volume)Ordered By: Nando Wiggins on 07-23-2024 Anion gap [Moles/Vol] 12 mmol/L 5-15 [facility] Serum or plasma calcium lilli urement (mass/volume)Ordered By: Nando Wiggins on 07-23-2024 Calcium [Mass/Vol] 8.4 mg/dL 7.6-11.0 [facility] Serum or plasma potassium me asurementOrdered By: Nando Wiggins on 07-23-2024 Potassium [Moles/Vol] 5.0 mmol/L 3.3-5.1 [facility] Serum or plasma sodium measu rement (moles/volume)Ordered By: Nando Wiggins on 07-23-2024 Sodium [Moles/Vol] 134 mmol/L 133-145 [facility] Serum or plasma urea nitroge n measurement (mass/volume)Ordered By: Debsrinathwolf Wiggins on 07-23-2024 Urea nitrogen [Mass/Vol] 60 mg/dL High 4-19 [facility] White blood cell (WBC) count Ordered By: Kathiebiancalilian Meeklakshmidesiree on 07-23-2024 WBC (Bld) [#/Vol] 12.3 10*3/uL High 4.4-11.0 [facility] Wound Ctr History AND Physic ariella 07-23-2024 Wound Ctr History & Physical Normal [facility] Basic Metabolic Profile (BMP )on 07-22-2024 CL Normal 98-107 [facility] Comment on above: Result Comment: Canc elled via OM: Order cancelled - Patient discharged Performed By: #### L 500.2500, L100.0100 ####[facility] [address] [place], [address] EST GFR - AA Normal >60 [facility] Comment on above: Result Comment: Canc elled via OM: Order cancelled - Patient discharged Performed By: #### L 500.2500, L100.0100 ####[facility] [address] [place], [address] GAP Normal 5-15 [facility] Comment on above: Result Comment: Canc elled via OM: Order cancelled - Patient discharged Performed By: #### L 500.2500, L100.0100 ####[facility] [address] [place], [address] Basic Metabolic Profile (BMP) Normal 136-145 [facility] Comment on above: Result Comment: Canc elled via OM: Order cancelled - Patient discharged Performed By: #### L 500.2500, L100.0100 ####[facility] [address] [place], [address] CBC W/Diff, Automatedon 03-0 2-2025 Absolute Neut Normal 2.0-7.7 [facility] Comment on above: Result Comment: Canc elled via OM: Order cancelled - Patient discharged Performed By: #### L 500.2500, L100.0100 ####[facility] [address] [place], [address] HCT Normal 40-54 [facility] Comment on above: Result Comment: Canc elled via OM: Order cancelled - Patient discharged Performed By: #### L 500.2500, L100.0100 ####[facility] [address] [place], [address] HGB Normal 13.0-16.5 [facility] Comment on above: Result Comment: Canc elled via OM: Order cancelled - Patient discharged Performed By: #### L 500.2500, L100.0100 ####[facility] [address] [place], [address] MCH Normal 27.0-32.0 [facility] Comment on above: Result Comment: Canc elled via OM: Order cancelled - Patient discharged Performed By: #### L 500.2500, L100.0100 ####[facility] [address] [place], [address] MCHC Normal 32-36 [facility] Comment on above: Result Comment: Canc elled via OM: Order cancelled - Patient discharged Performed By: #### L 500.2500, L100.0100 ####[facility] [address] [place], [address] MCV Normal 80-94 [facility] Comment on above: Result Comment: Canc elled via OM: Order cancelled - Patient discharged Performed By: #### L 500.2500, L100.0100 ####[facility] [address] [place], [address] NEUT% Normal 47-70 [facility] Comment on above: Result Comment: Canc elled via OM: Order cancelled - Patient discharged Performed By: #### L 500.2500, L100.0100 ####[facility] [address] [place], [address] PLT Normal 150-450 [facility] Comment on above: Result Comment: Canc elled via OM: Order cancelled - Patient discharged Performed By: #### L 500.2500, L100.0100 ####[facility] [address] [place], [address] RBC Normal 4.6-6.2 [facility] Comment on above: Result Comment: Canc elled via OM: Order cancelled - Patient discharged Performed By: #### L 500.2500, L100.0100 ####[facility] [address] [place], [address] RDW CV Normal 11.6-14.6 [facility] Comment on above: Result Comment: Canc elled via OM: Order cancelled - Patient discharged Performed By: #### L 500.2500, L100.0100 ####[facility] [address] [place], [address] RDW SD Normal 35.1-43.9 [facility] Comment on above: Result Comment: Canc elled via OM: Order cancelled - Patient discharged Performed By: #### L 500.2500, L100.0100 ####[facility] [address] [place], [address] WBC Normal 4.4-11.0 [facility] Comment on above: Result Comment: Canc elled via OM: Order cancelled - Patient discharged Performed By: #### L 500.2500, L100.0100 ####[facility] [address] [place], [address] Comprehensive Metabolic Prof ilon 07-22-2024 BUN Normal 7-18 [facility] Comment on above: Result Comment: NOT DRAWN PATIENT DIDN'T COME TO LAB Performed By: #### L 500.4050 ####[facility] [address] [place], [address] Result Comment: Canc elled via OM: Order cancelled - Patient discharged Performed By: #### L 500.2500, L100.0100 ####[facility] [address] [place], [address] BUN/CRE Normal 10-20 [facility] Comment on above: Result Comment: NOT DRAWN PATIENT DIDN'T COME TO LAB Performed By: #### L 500.4050 ####[facility] [address] [place], [address] Result Comment: Canc elled via OM: Order cancelled - Patient discharged Performed By: #### L 500.2500, L100.0100 ####[facility] [address] [place], [address] Calcium Normal 8.5-10.1 [facility] Comment on above: Result Comment: NOT DRAWN PATIENT DIDN'T COME TO LAB Performed By: #### L 500.4050 ####[facility] [address] [place], [address] Result Comment: Canc elled via OM: Order cancelled - Patient discharged Performed By: #### L 500.2500, L100.0100 ####[facility] [address] [place], [address] CO2 Normal 21.0-32.0 [facility] Comment on above: Result Comment: NOT DRAWN PATIENT DIDN'T COME TO LAB Performed By: #### L 500.4050 ####[facility] [address] [place], [address] Result Comment: Canc elled via OM: Order cancelled - Patient discharged Performed By: #### L 500.2500, L100.0100 ####[facility] [address] [place], [address] CREAT,SERUM Normal 0.70-1.30 [facility] Comment on above: Result Comment: NOT DRAWN PATIENT DIDN'T COME TO LAB Performed By: #### L 500.4050 ####[facility] [address] [place], [address] Result Comment: Canc elled via OM: Order cancelled - Patient discharged Performed By: #### L 500.2500, L100.0100 ####[facility] [address] [place], [address] eGFR Normal >60 [facility] Comment on above: Result Comment: NOT DRAWN PATIENT DIDN'T COME TO LAB Performed By: #### L 500.4050 ####[facility] [address] [place], [address] Result Comment: Canc elled via OM: Order cancelled - Patient discharged Performed By: #### L 500.2500, L100.0100 ####[facility] [address] [place], [address] GLU Normal 74-106 [facility] Comment on above: Result Comment: NOT DRAWN PATIENT DIDN'T COME TO LAB Performed By: #### L 500.4050 ####[facility] [address] [place], [address] Result Comment: Canc elled via OM: Order cancelled - Patient discharged Performed By: #### L 500.2500, L100.0100 ####[facility] [address] [place], [address] Potassium Normal 3.5-5.1 [facility] Comment on above: Result Comment: NOT DRAWN PATIENT DIDN'T COME TO LAB Performed By: #### L 500.4050 ####[facility] [address] [place], [address] Result Comment: Canc elled via OM: Order cancelled - Patient discharged Performed By: #### L 500.2500, L100.0100 ####[facility] [address] [place], [address] Culture, Blood (WB)on 2024 CUB No growth in 5 days. Normal [facility] Comment on above: Performed By: #### M 200.1000 ####[facility] [address] [place], [address] Basic Metabolic Profile (BMP )on 07-21-2024 BUN Normal 7-18 [facility] Comment on above: Result Comment: Canc elled via OM: Order cancelled - Patient discharged Performed By: #### L 100.0100, L500.2500 ####[facility] [address] [place], [address] BUN/CRE Normal 10-20 [facility] Comment on above: Result Comment: Canc elled via OM: Order cancelled - Patient discharged Performed By: #### L 100.0100, L500.2500 ####[facility] [address] [place], [address] Calcium Normal 8.5-10.1 [facility] Comment on above: Result Comment: Canc elled via OM: Order cancelled - Patient discharged Performed By: #### L 100.0100, L500.2500 ####[facility] [address] [place], [address] CL Normal 98-107 [facility] Comment on above: Result Comment: Canc elled via OM: Order cancelled - Patient discharged Performed By: #### L 100.0100, L500.2500 ####[facility] [address] [place], [address] CO2 Normal 21.0-32.0 [facility] Comment on above: Result Comment: Canc elled via OM: Order cancelled - Patient discharged Performed By: #### L 100.0100, L500.2500 ####[facility] [address] [place], [address] CREAT,SERUM Normal 0.70-1.30 [facility] Comment on above: Result Comment: Canc elled via OM: Order cancelled - Patient discharged Performed By: #### L 100.0100, L500.2500 ####[facility] [address] [place], [address] eGFR Normal >60 [facility] Comment on above: Result Comment: Canc elled via OM: Order cancelled - Patient discharged Performed By: #### L 100.0100, L500.2500 ####[facility] [address] [place], [address] EST GFR - AA Normal >60 [facility] Comment on above: Result Comment: Canc elled via OM: Order cancelled - Patient discharged Performed By: #### L 100.0100, L500.2500 ####[facility] [address] [place], [address] GAP Normal 5-15 [facility] Comment on above: Result Comment: Canc elled via OM: Order cancelled - Patient discharged Performed By: #### L 100.0100, L500.2500 ####[facility] [address] [place], [address] GLU Normal 74-106 [facility] Comment on above: Result Comment: Canc elled via OM: Order cancelled - Patient discharged Performed By: #### L 100.0100, L500.2500 ####[facility] [address] [place], [address] Potassium Normal 3.5-5.1 [facility] Comment on above: Result Comment: Canc elled via OM: Order cancelled - Patient discharged Performed By: #### L 100.0100, L500.2500 ####[facility] [address] [place], [address] Basic Metabolic Profile (BMP) Normal 136-145 [facility] Comment on above: Result Comment: Canc elled via OM: Order cancelled - Patient discharged Performed By: #### L 100.0100, L500.2500 ####[facility] [address] [place], [address] CBC W/Diff, Automatedon 03-0 Absolute Neut Normal 2.0-7.7 [facility] Comment on above: Result Comment: Canc elled via OM: Order cancelled - Patient discharged Performed By: #### L 100.0100, L500.2500 ####[facility] [address] [place], [address] HCT Normal 40-54 [facility] Comment on above: Result Comment: Canc elled via OM: Order cancelled - Patient discharged Performed By: #### L 100.0100, L500.2500 ####[facility] [address] [place], [address] HGB Normal 13.0-16.5 [facility] Comment on above: Result Comment: Canc elled via OM: Order cancelled - Patient discharged Performed By: #### L 100.0100, L500.2500 ####[facility] [address] [place], [address] MCH Normal 27.0-32.0 [facility] Comment on above: Result Comment: Canc elled via OM: Order cancelled - Patient discharged Performed By: #### L 100.0100, L500.2500 ####[facility] [address] [place], [address] MCHC Normal 32-36 [facility] Comment on above: Result Comment: Canc elled via OM: Order cancelled - Patient discharged Performed By: #### L 100.0100, L500.2500 ####[facility] [address] [place], [address] MCV Normal 80-94 [facility] Comment on above: Result Comment: Canc elled via OM: Order cancelled - Patient discharged Performed By: #### L 100.0100, L500.2500 ####[facility] [address] [place], [address] NEUT% Normal 47-70 [facility] Comment on above: Result Comment: Canc elled via OM: Order cancelled - Patient discharged Performed By: #### L 100.0100, L500.2500 ####[facility] [address] [place], [address] PLT Normal 150-450 [facility] Comment on above: Result Comment: Canc elled via OM: Order cancelled - Patient discharged Performed By: #### L 100.0100, L500.2500 ####[facility] [address] [place], [address] RBC Normal 4.6-6.2 [facility] Comment on above: Result Comment: Canc elled via OM: Order cancelled - Patient discharged Performed By: #### L 100.0100, L500.2500 ####[facility] [address] [place], [address] RDW CV Normal 11.6-14.6 [facility] Comment on above: Result Comment: Canc elled via OM: Order cancelled - Patient discharged Performed By: #### L 100.0100, L500.2500 ####[facility] [address] [place], [address] RDW SD Normal 35.1-43.9 [facility] Comment on above: Result Comment: Canc elled via OM: Order cancelled - Patient discharged Performed By: #### L 100.0100, L500.2500 ####[facility] [address] [place], [address] WBC Normal 4.4-11.0 [facility] Comment on above: Result Comment: Canc elled via OM: Order cancelled - Patient discharged Performed By: #### L 100.0100, L500.2500 ####[facility] [address] [place], [address] Culture, Anaerobic Any Sourc reed 07-21-2024 CUAN UNK UNK Post-lavage Right lower extremity No anaerobic bacteria isolated. Normal [facility] Comment on above: Performed By: #### M 100.2000, M100.3000, M100.4001 ####[facility] [address] [place], [address] CUAN UNK UNK Pre-lavage right lower extremity - collected in [place] No anaerobic bacteria isolated. Normal [facility] Comment on above: Performed By: #### M 100.4001, M100.3000, M100.2000 ####[facility] [address] [place], [address] Culture, Blood (WB)on 2024 CUB No growth in 5 days. Normal [facility] Comment on above: Performed By: #### M 200.1000 ####[facility] [address] [place], [address] Absolute lymphocyte countOrd ered By: Jayla Osuna on 07-20-2024 Lymphocytes Auto (Unsp spec) [#/Vol] 1.89 10*3/uL 0.83-4.51 [facility] Automated lymphocyte count a s percentage of total leukocytesOrdered By: Jayla Osuna on 07-20-2024 Lymphocytes/100 WBC Auto (Unsp spec) 14.9 % Low 19-41 [facility] BUN/creatinine ratioOrdered By: Margarette Godinez on 07-20-2024 Urea nitrogen/Creatinine [Mass ratio] 16.1 mg/mg 10-20 [facility] Basic Metabolic Profile (BMP )on 07-20-2024 Anion gap [Moles/Vol] 12 mmol/L Normal 5-15 [facility] Comment on above: Performed By: #### L 500.2500 ####[facility] [address] [place], [address] BUN/CRE 16.1 RATIO Normal 10-20 [facility] Comment on above: Performed By: #### L 500.2500 ####[facility] [address] [place], [address] Calcium [Mass/Vol] 8.7 mg/dL Normal 7.6-11.0 [facility] Comment on above: Performed By: #### L 500.2500 ####[facility] [address] [place], [address] Chloride [Moles/Vol] 97 mmol/L Normal 96-108 [facility] Comment on above: Performed By: #### L 500.2500 ####[facility] [address] [place], [address] CO2 [Moles/Vol] 22.0 mmol/L Normal 22.0-29.0 [facility] Comment on above: Performed By: #### L 500.2500 ####[facility] [address] [place], [address] Creatinine [Mass/Vol] 4.24 mg/dL High 0.70-1.20 [facility] Comment on above: Performed By: #### L 500.2500 ####[facility] [address] [place], [address] ECRCL 13.28 ml/min Normal [facility] Comment on above: Performed By: #### L 500.2500 ####[facility] [address] [place], [address] GFR/1.73 sq M.predicted among non-blacks MDRD (S/P/Bld) [Vol rate/Area] 13 mL/min/{1.73_m2} Low >60 [facility] Comment on above: Result Comment: mL/m in/1.73m2 CKD-EPI Creatinine Equation (2020) Performed By: #### L 500.2500 ####[facility] [address] [place], [address] Glucose [Mass/Vol] 153 mg/dL High 70-99 [facility] Comment on above: Performed By: #### L 500.2500 ####[facility] [address] [place], [address] Potassium [Moles/Vol] 5.5 mmol/L High 3.3-5.1 [facility] Comment on above: Performed By: #### L 500.2500 ####[facility] [address] [place], [address] Sodium [Moles/Vol] 131 mmol/L Low 133-145 [facility] Comment on above: Performed By: #### L 500.2500 ####[facility] [address] [place], [address] Urea nitrogen [Mass/Vol] 68 mg/dL High 4-19 [facility] Comment on above: Performed By: #### L 500.2500 ####[facility] [address] [place], [address] BUN/CRE 16.1 RATIO Normal 10-20 [facility] Comment on above: Result Comment: WILL REORDER Performed By: #### L 500.2500, L100.0100 ####[facility] [address] [place], [address] Creatinine [Mass/Vol] 4.15 mg/dL High 0.70-1.20 [facility] Comment on above: Result Comment: WILL REORDER Performed By: #### L 500.2500, L100.0100 ####[facility] [address] [place], [address] ECRCL 13.57 ml/min Normal [facility] Comment on above: Result Comment: WILL REORDER Performed By: #### L 500.2500, L100.0100 ####[facility] [address] [place], [address] GFR/1.73 sq M.predicted among non-blacks MDRD (S/P/Bld) [Vol rate/Area] 13 mL/min/{1.73_m2} Low >60 [facility] Comment on above: Result Comment: WILL REORDERmL/min/1.73m2 CKD-EPI Creatinine Equation (2020) Performed By: #### L 500.2500, L100.0100 ####[facility] [address] [place], [address] Glucose [Mass/Vol] 155 mg/dL High 70-99 [facility] Comment on above: Result Comment: WILL REORDER Performed By: #### L 500.2500, L100.0100 ####[facility] [address] [place], [address] Urea nitrogen [Mass/Vol] 67 mg/dL High 4-19 [facility] Comment on above: Result Comment: WILL REORDER Performed By: #### L 500.2500, L100.0100 ####[facility] [address] [place], [address] Calcium Normal 8.5-10.1 [facility] Comment on above: Result Comment: WILL REORDER Performed By: #### L 500.2500, L100.0100 ####[facility] [address] [place], [address] CL Normal 98-107 [facility] Comment on above: Result Comment: WILL REORDER Performed By: #### L 500.2500, L100.0100 ####[facility] [address] [place], [address] CO2 Normal 21.0-32.0 [facility] Comment on above: Result Comment: WILL REORDER Performed By: #### L 500.2500, L100.0100 ####[facility] [address] [place], [address] EST GFR - AA Normal >60 [facility] Comment on above: Result Comment: WILL REORDER Performed By: #### L 500.2500, L100.0100 ####[facility] [address] [place], [address] GAP Normal 5-15 [facility] Comment on above: Result Comment: WILL REORDER Performed By: #### L 500.2500, L100.0100 ####[facility] [address] [place], [address] Potassium Normal 3.5-5.1 [facility] Comment on above: Result Comment: WILL REORDER Performed By: #### L 500.2500, L100.0100 ####[facility] [address] [place], [address] Basic Metabolic Profile (BMP) Normal 136-145 [facility] Comment on above: Result Comment: WILL REORDER Performed By: #### L 500.2500, L100.0100 ####[facility] [address] [place], [address] Basophil percentageOrdered B y: Jayla Osuna on 07-20-2024 Basophils/100 WBC (Bld) 0.4 % 0-1 [facility] Bedside Glucoseon 07-20-2024 FINGERSTICK GLU 91 mg/dL Normal 74-106 [facility] Comment on above: Result Comment: FANG GEMENT OF PATIENT CARE PER NURSING PROTOCOL Performed By: #### L 501.080 ####[facility] [address] [place], [address] FINGERSTICK GLU 98 mg/dL Normal 74-106 [facility] Comment on above: Result Comment: FANG GEMENT OF PATIENT CARE PER NURSING PROTOCOL Performed By: #### L 501.080 ####[facility] [address] [place], [address] FINGERSTICK GLU 159 mg/dL High 74-106 [facility] Comment on above: Result Comment: FANG GEMENT OF PATIENT CARE PER NURSING PROTOCOL Performed By: #### L 501.080 ####[facility] [address] [place], [address] FINGERSTICK GLU 156 mg/dL High 74-106 [facility] Comment on above: Result Comment: FANG GEMENT OF PATIENT CARE PER NURSING PROTOCOL Performed By: #### L 501.080 ####[facility] [address] [place], [address] CBC W/Diff, Automatedon 06-24 Absolute Lymph 1.89 X10 3/uL Normal 0.83-4.51 [facility] Comment on above: Performed By: #### L 500.2500, L100.0100 ####[facility] [address] [place], [address] Absolute Neut 9.3 X10 3/uL High 2.0-7.7 [facility] Comment on above: Performed By: #### L 500.2500, L100.0100 ####[facility] [address] [place], [address] Basophils/100 WBC (Bld) 0.4 % Normal 0-1 [facility] Comment on above: Performed By: #### L 500.2500, L100.0100 ####[facility] [address] [place], [address] Eosinophils/100 WBC (Bld) 1.7 % Normal 0-5 [facility] Comment on above: Performed By: #### L 500.2500, L100.0100 ####[facility] [address] [place], [address] Erythrocyte distribution width (RBC) [Ratio] 17.6 % High 11.6-14.6 [facility] Comment on above: Performed By: #### L 500.2500, L100.0100 ####[facility] [address] [place], [address] Hematocrit (Bld) [Volume fraction] 25.2 % Low 40-54 [facility] Comment on above: Performed By: #### L 500.2500, L100.0100 ####[facility] [address] [place], [address] Hemoglobin (Bld) [Mass/Vol] 7.6 g/dL Low 13.0-16.5 [facility] Comment on above: Performed By: #### L 500.2500, L100.0100 ####[facility] [address] [place], [address] IG% 2.300 High 0.0-0.9 [facility] Comment on above: Result Comment: IG% - Immature Granulocytes (promyelocytes, myelocytes andmetamyelocytes) > 1% indicates that a LEFT SHIFT is Present. Performed By: #### L 500.2500, L100.0100 ####[facility] [address] [place], [address] Lymphocytes/100 WBC (Bld) 14.9 % Low 19-41 [facility] Comment on above: Performed By: #### L 500.2500, L100.0100 ####[facility] [address] [place], [address] MCH (RBC) [Entitic mass] 28.1 pg Normal 27.0-32.0 [facility] Comment on above: Performed By: #### L 500.2500, L100.0100 ####[facility] [address] [place], [address] MCHC (RBC) [Mass/Vol] 30.2 g/dL Low 32-36 [facility] Comment on above: Performed By: #### L 500.2500, L100.0100 ####[facility] [address] [place], [address] MCV (RBC) [Entitic vol] 93.3 fL Normal 80-94 [facility] Comment on above: Performed By: #### L 500.2500, L100.0100 ####[facility] [address] [place], [address] Monocytes/100 WBC (Bld) 7.6 % Normal 0-10 [facility] Comment on above: Performed By: #### L 500.2500, L100.0100 ####[facility] [address] [place], [address] Neutrophils/100 WBC (Bld) 73.1 % High 47-70 [facility] Comment on above: Performed By: #### L 500.2500, L100.0100 ####[facility] [address] [place], [address] Nucleated RBC (Bld) [#/Vol] 0 10*3/uL Normal 0-5 [facility] Comment on above: Performed By: #### L 500.2500, L100.0100 ####[facility] [address] [place], [address] Platelet mean volume (Bld) [Entitic vol] 10.4 fL Normal 6.2-12.0 [facility] Comment on above: Performed By: #### L 500.2500, L100.0100 ####[facility] [address] [place], [address] Platelets (Bld) [#/Vol] 438 10*3/uL Normal 150-450 [facility] Comment on above: Performed By: #### L 500.2500, L100.0100 ####[facility] [address] [place], [address] RBC (Bld) [#/Vol] 2.70 10*6/uL Low 4.6-6.2 [facility] Comment on above: Performed By: #### L 500.2500, L100.0100 ####[facility] [address] [place], [address] RDW SD 60.7 fl High 35.1-43.9 [facility] Comment on above: Performed By: #### L 500.2500, L100.0100 ####[facility] [address] [place], [address] WBC (Bld) [#/Vol] 12.7 10*3/uL High 4.4-11.0 [facility] Comment on above: Performed By: #### L 500.2500, L100.0100 ####[facility] [address] [place], [address] Carbon dioxide measurementOr dered By: Margarette Godinez on 07-20-2024 CO2 [Moles/Vol] 22.0 mmol/L 22.0-29.0 [facility] Chloride measurementOrdered By: Margarette Godinez on 07-20-2024 Chloride [Moles/Vol] 97 mmol/L 96-108 [facility] Eosinophil percentageOrdered By: Jayla Osuna on 07-20-2024 Eosinophils/100 WBC (Bld) 1.7 % 0-5 [facility] Erythrocyte distribution wid th ratioOrdered By: Jayla Osuna on 07-20-2024 Erythrocyte distribution width (RBC) [Ratio] 17.6 % High 11.6-14.6 [facility] Erythrocyte distribution wid th standard deviationOrdered By: Jayla Osuna on 07-20-2024 Erythrocyte distribution width (RBC) [Ratio] 60.7 fl High 35.1-43.9 [facility] Glomerular filtration rate ( GFR) estimation/1.73 sq m using serum, plasma, or whole bOrdered By: Margarette Godinez on 07-20-2024 GFR/1.73 sq M.predicted among non-blacks MDRD (S/P/Bld) [Vol rate/Area] 13 mL/min/{1.73_m2} Low >60 [facility] deOrdered By: Margarette Godinez on 07-20-2024 Glucose [Mass/Vol] 91 mg/dL 74-106 [facility] Hematocrit Auto (Bld) [Volum e fraction]Ordered By: Jayla Osuna on 07-20-2024 Hematocrit (Bld) [Volume fraction] 25.2 % Low 40-54 [facility] Hemoglobin measurementOrdere d By: Jayla Osuna on 07-20-2024 Hemoglobin (Bld) [Mass/Vol] 7.6 g/dL Low 13.0-16.5 [facility] Immature granulocytes/100 WB C Auto (Bld)Ordered By: Jayla Osuna on 07-20-2024 Immature granulocytes/100 WBC (Bld) 2.300 % High 0.0-0.9 [facility] MCV (mean corpuscular volume ) determinationOrdered By: Jayla Osuna on 07-20-2024 MCV (RBC) [Entitic vol] 93.3 fL 80-94 [facility] Mean corpuscular hemoglobin (MCH) determinationOrdered By: Jayla Osuna on 07-20-2024 MCH (RBC) [Entitic mass] 28.1 pg 27.0-32.0 [facility] Monocyte percentageOrdered B y: Jayla Osuna on 07-20-2024 Monocytes/100 WBC (Bld) 7.6 % 0-10 [facility] Neutrophil percentageOrdered By: Jayla Osuna on 07-20-2024 Neutrophils/100 WBC (Bld) 73.1 % High 47-70 [facility] Platelet countOrdered By: Kristofer Osuna on 07-20-2024 Platelets (Bld) [#/Vol] 438 10*3/uL 150-450 [facility] RBC Auto (Bld) [#/Vol]Ordere d By: Jayla Osuna on 07-20-2024 RBC (Bld) [#/Vol] 2.70 10*6/uL Low 4.6-6.2 [facility] Serum creatinine measurement (mass/volume)Ordered By: Margarette Godinez on 07-20-2024 Creatinine [Mass/Vol] 4.24 mg/dL High 0.70-1.20 [facility] Serum glucose measurement (m ass/volume)Ordered By: Margarette Godinez on 07-20-2024 Glucose [Mass/Vol] 153 mg/dL High 70-99 [facility] Serum or plasma anion gap de termination (moles/volume)Ordered By: Margarette Godinez on 07-20-2024 Anion gap [Moles/Vol] 12 mmol/L - [facility] Serum or plasma calcium lilli urement (mass/volume)Ordered By: Margarette Godinez on 07-20-2024 Calcium [Mass/Vol] 8.7 mg/dL 7.6-11.0 [facility] Serum or plasma potassium me asurementOrdered By: Margarette Godinez on 07-20-2024 Potassium [Moles/Vol] 5.5 mmol/L High 3.3-5.1 [facility] Serum or plasma sodium measu rement (moles/volume)Ordered By: Margarette Godinez on 07-20-2024 Sodium [Moles/Vol] 131 mmol/L Low 133-145 [facility] Serum or plasma urea nitroge n measurement (mass/volume)Ordered By: Margarette Godinez on 07-20-2024 Urea nitrogen [Mass/Vol] 68 mg/dL High 4-19 [facility] White blood cell (WBC) count Ordered By: Jayla Osuna on 07-20-2024 WBC (Bld) [#/Vol] 12.7 10*3/uL High 4.4-11.0 [facility] Basic Metabolic Profile (BMP )on 07-19-2024 Anion gap [Moles/Vol] 17 mmol/L High 10-04 [facility] Comment on above: Performed By: #### L 500.2500 ####[facility] [address] [place], [address] BUN/CRE 14.3 RATIO Normal 10-20 [facility] Comment on above: Performed By: #### L 500.2500 ####[facility] [address] [place], [address] Calcium [Mass/Vol] 8.7 mg/dL Normal 7.6-11.0 [facility] Comment on above: Performed By: #### L 500.2500 ####[facility] [address] [place], [address] Chloride [Moles/Vol] 95 mmol/L Low 96-108 [facility] Comment on above: Performed By: #### L 500.2500 ####[facility] [address] [place], [address] CO2 [Moles/Vol] 19.8 mmol/L Low 22.0-29.0 [facility] Comment on above: Performed By: #### L 500.2500 ####[facility] [address] [place], [address] Creatinine [Mass/Vol] 5.60 mg/dL High 0.70-1.20 [facility] Comment on above: Performed By: #### L 500.2500 ####[facility] [address] [place], [address] ECRCL 10.06 ml/min Normal [facility] Comment on above: Performed By: #### L 500.2500 ####[facility] [address] [place], [address] GFR/1.73 sq M.predicted among non-blacks MDRD (S/P/Bld) [Vol rate/Area] 9 mL/min/{1.73_m2} Low >60 [facility] Comment on above: Result Comment: mL/m in/1.73m2 CKD-EPI Creatinine Equation (2020) Performed By: #### L 500.2500 ####[facility] [address] [place], [address] Glucose [Mass/Vol] 153 mg/dL High 70-99 [facility] Comment on above: Performed By: #### L 500.2500 ####[facility] [address] [place], [address] Potassium [Moles/Vol] 5.9 mmol/L High 3.3-5.1 [facility] Comment on above: Performed By: #### L 500.2500 ####[facility] [address] [place], [address] Sodium [Moles/Vol] 131 mmol/L Low 133-145 [facility] Comment on above: Performed By: #### L 500.2500 ####[facility] [address] [place], [address] Urea nitrogen [Mass/Vol] 80 mg/dL High 4-19 [facility] Comment on above: Performed By: #### L 500.2500 ####[facility] [address] [place], [address] Anion gap [Moles/Vol] 13 mmol/L Normal 5-15 [facility] Comment on above: Performed By: #### L 500.2500 ####[facility] [address] [place], [address] ECRCL 12.41 ml/min Normal [facility] Comment on above: Performed By: #### L 500.2500 ####[facility] [address] [place], [address] GFR/1.73 sq M.predicted among non-blacks MDRD (S/P/Bld) [Vol rate/Area] 12 mL/min/{1.73_m2} Low >60 [facility] Comment on above: Performed By: #### L 500.2500 ####[facility] [address] [place], [address] BUN/CRE 13.7 RATIO Normal 10-20 [facility] Comment on above: Performed By: #### L 500.2500 ####[facility] [address] [place], [address] Calcium [Mass/Vol] 8.9 mg/dL Normal 7.6-11.0 [facility] Comment on above: Performed By: #### L 500.2500 ####[facility] [address] [place], [address] Creatinine [Mass/Vol] 4.6 mg/dL High 0.8-1.3 [facility] Comment on above: Performed By: #### L 500.2500 ####[facility] [address] [place], [address] Glucose [Mass/Vol] 130 mg/dL High 70-99 [facility] Comment on above: Performed By: #### L 500.2500 ####[facility] [address] [place], [address] Urea nitrogen [Mass/Vol] 63 mg/dL High 4-19 [facility] Comment on above: Performed By: #### L 500.2500 ####[facility] [address] [place], [address] Chloride [Moles/Vol] 97 mmol/L Normal 96-108 [facility] Comment on above: Performed By: #### L 500.2500 ####[facility] [address] [place], [address] CO2 [Moles/Vol] 22.7 mmol/L Normal 22.0-29.0 [facility] Comment on above: Performed By: #### L 500.2500 ####[facility] [address] [place], [address] Potassium [Moles/Vol] 5.0 mmol/L Normal 3.3-5.1 [facility] Comment on above: Performed By: #### L 500.2500 ####[facility] [address] [place], [address] Sodium [Moles/Vol] 133 mmol/L Normal 133-145 [facility] Comment on above: Performed By: #### L 500.2500 ####[facility] [address] [place], [address] Glucose [Mass/Vol] 165 mg/dL High 70-99 [facility] Comment on above: Order Comment: REORD ERED Result Comment: MARIS RAYA AMENDED REPORT 07/19/24 1223 GLU previously reported as: 173 H mg/dL Performed By: #### L 100.0100, L500.2500 ####[facility] [address] [place], [address] Urea nitrogen [Mass/Vol] 84 mg/dL High 4-19 [facility] Comment on above: Order Comment: REORD ERED Result Comment: MARIS RAYA AMENDED REPORT 07/19/24 1223 BUN previously reported as: 83 H mg/dL Performed By: #### L 100.0100, L500.2500 ####[facility] [address] [place], [address] BUN/CRE 13.7 RATIO Normal 10-20 [facility] Comment on above: Order Comment: WILL REORDER Result Comment: WILL REORDER AMENDED REPORT 07/19/24 1106 BUN/CRE previously reported as: 13.5 RATIO Performed By: #### L 100.0100, L500.2500 ####[facility] [address] [place], [address] Creatinine [Mass/Vol] 4.6 mg/dL High 0.8-1.3 [facility] Comment on above: Order Comment: WILL REORDER Result Comment: WILL REORDER AMENDED REPORT 07/19/24 1106 CREAT,SERUM previously reported as: 4.5 H mg/dL Performed By: #### L 100.0100, L500.2500 ####[facility] [address] [place], [address] ECRCL 12.41 ml/min Normal [facility] Comment on above: Order Comment: WILL REORDER Result Comment: WILL REORDER AMENDED REPORT 07/19/24 1106 Estimated CRCL previously reported as: 12.65 ml/min Performed By: #### L 100.0100, L500.2500 ####[facility] [address] [place], [address] Glucose [Mass/Vol] 130 mg/dL High 70-99 [facility] Comment on above: Order Comment: WILL REORDER Result Comment: WILL REORDER AMENDED REPORT 07/19/24 1106 GLU previously reported as: 157 H mg/dL Performed By: #### L 100.0100, L500.2500 ####[facility] [address] [place], [address] Urea nitrogen [Mass/Vol] 63 mg/dL High 4-19 [facility] Comment on above: Order Comment: WILL REORDER Result Comment: WILL REORDER AMENDED REPORT 07/19/24 1106 BUN previously reported as: 60 H mg/dL Performed By: #### L 100.0100, L500.2500 ####[facility] [address] [place], [address] BUN/CRE 15.2 RATIO Normal 10-20 [facility] Comment on above: Order Comment: REORD ERED Result Comment: MARIS RAYA Performed By: #### L 100.0100, L500.2500 ####[facility] [address] [place], [address] Creatinine [Mass/Vol] 5.5 mg/dL High 0.8-1.3 [facility] Comment on above: Order Comment: REORD ERED Result Comment: MARIS RAYA Performed By: #### L 100.0100, L500.2500 ####[facility] [address] [place], [address] ECRCL 10.38 ml/min Normal [facility] Comment on above: Order Comment: REORD ERED Result Comment: MARIS RAYA Performed By: #### L 100.0100, L500.2500 ####[facility] [address] [place], [address] GFR/1.73 sq M.predicted among non-blacks MDRD (S/P/Bld) [Vol rate/Area] 9 mL/min/{1.73_m2} Low >60 [facility] Comment on above: Order Comment: REALVERTO ERED Result Comment: MARIS ZHAODmL/min/1.73m2 CKD-EPI Creatinine Equation (2020) Performed By: #### L 100.0100, L500.2500 ####[facility] [address] [place], [address] Calcium Normal 8.5-10.1 [facility] Comment on above: Order Comment: REORD ERED Result Comment: REOR DERED Performed By: #### L 100.0100, L500.2500 ####[facility] [address] [place], [address] CL Normal 98-107 [facility] Comment on above: Order Comment: REORD ERED Result Comment: REOR DERED Performed By: #### L 100.0100, L500.2500 ####[facility] [address] [place], [address] CO2 Normal 21.0-32.0 [facility] Comment on above: Order Comment: REORD ERED Result Comment: REOR DERED Performed By: #### L 100.0100, L500.2500 ####[facility] [address] [place], [address] EST GFR - AA Normal >60 [facility] Comment on above: Order Comment: REORD ERED Result Comment: REOR DERED Performed By: #### L 100.0100, L500.2500 ####[facility] [address] [place], [address] GAP Normal 5-15 [facility] Comment on above: Order Comment: REORD ERED Result Comment: REOR DERED Performed By: #### L 100.0100, L500.2500 ####[facility] [address] [place], [address] Potassium Normal 3.5-5.1 [facility] Comment on above: Order Comment: THERESA LIMA Result Comment: MARIS RAYA Performed By: #### L 100.0100, L500.2500 ####[facility] [address] [place], [address] Basic Metabolic Profile (BMP) Normal 136-145 [facility] Comment on above: Order Comment: THERESA LIMA Result Comment: MARIS RAYA Performed By: #### L 100.0100, L500.2500 ####[facility] [address] [place], [address] Bedside Glucoseon 07-19-2024 FINGERSTICK GLU 135 mg/dL High 74-106 [facility] Comment on above: Result Comment: FANG GEMENT OF PATIENT CARE PER NURSING PROTOCOL Performed By: #### L 501.080 ####[facility] [address] [place], [address] FINGERSTICK GLU 227 mg/dL High 74-106 [facility] Comment on above: Result Comment: FANG GEMENT OF PATIENT CARE PER NURSING PROTOCOL Performed By: #### L 501.080 ####[facility] [address] [place], [address] FINGERSTICK GLU 120 mg/dL High 74-106 [facility] Comment on above: Result Comment: FANG GEMENT OF PATIENT CARE PER NURSING PROTOCOL Performed By: #### L 501.080 ####[facility] [address] [place], [address] CBC W/Diff, Automatedon - Absolute Lymph 2.07 X10 3/uL Normal 0.83-4.51 [facility] Comment on above: Performed By: #### L 100.0100, L500.2500 ####[facility] [address] [place], [address] Absolute Neut 13.1 X10 3/uL High 2.0-7.7 [facility] Comment on above: Performed By: #### L 100.0100, L500.2500 ####[facility] [address] [place], [address] Basophils/100 WBC (Bld) 0.5 % Normal 0-1 [facility] Comment on above: Performed By: #### L 100.0100, L500.2500 ####[facility] [address] [place], [address] Eosinophils/100 WBC (Bld) 1.6 % Normal 0-5 [facility] Comment on above: Performed By: #### L 100.0100, L500.2500 ####[facility] [address] [place], [address] Erythrocyte distribution width (RBC) [Ratio] 17.7 % High 11.6-14.6 [facility] Comment on above: Performed By: #### L 100.0100, L500.2500 ####[facility] [address] [place], [address] Hematocrit (Bld) [Volume fraction] 25.5 % Low 40-54 [facility] Comment on above: Performed By: #### L 100.0100, L500.2500 ####[facility] [address] [place], [address] Hemoglobin (Bld) [Mass/Vol] 7.7 g/dL Low 13.0-16.5 [facility] Comment on above: Performed By: #### L 100.0100, L500.2500 ####[facility] [address] [place], [address] IG% 2.300 High 0.0-0.9 [facility] Comment on above: Result Comment: IG% - Immature Granulocytes (promyelocytes, myelocytes andmetamyelocytes) > 1% indicates that a LEFT SHIFT is Present. Performed By: #### L 100.0100, L500.2500 ####[facility] [address] [place], [address] Lymphocytes/100 WBC (Bld) 12.1 % Low 19-41 [facility] Comment on above: Performed By: #### L 100.0100, L500.2500 ####[facility] [address] [place], [address] MCH (RBC) [Entitic mass] 28.1 pg Normal 27.0-32.0 [facility] Comment on above: Performed By: #### L 100.0100, L500.2500 ####[facility] [address] [place], [address] MCHC (RBC) [Mass/Vol] 30.2 g/dL Low 32-36 [facility] Comment on above: Performed By: #### L 100.0100, L500.2500 ####[facility] [address] [place], [address] MCV (RBC) [Entitic vol] 93.1 fL Normal 80-94 [facility] Comment on above: Performed By: #### L 100.0100, L500.2500 ####[facility] [address] [place], [address] Monocytes/100 WBC (Bld) 7.1 % Normal 0-10 [facility] Comment on above: Performed By: #### L 100.0100, L500.2500 ####[facility] [address] [place], [address] Neutrophils/100 WBC (Bld) 76.4 % High 47-70 [facility] Comment on above: Performed By: #### L 100.0100, L500.2500 ####[facility] [address] [place], [address] Nucleated RBC (Bld) [#/Vol] 0 10*3/uL Normal 0-5 [facility] Comment on above: Performed By: #### L 100.0100, L500.2500 ####[facility] [address] [place], [address] Platelet mean volume (Bld) [Entitic vol] 10.6 fL Normal 6.2-12.0 [facility] Comment on above: Performed By: #### L 100.0100, L500.2500 ####[facility] [address] [place], [address] Platelets (Bld) [#/Vol] 467 10*3/uL High 150-450 [facility] Comment on above: Performed By: #### L 100.0100, L500.2500 ####[facility] [address] [place], [address] RBC (Bld) [#/Vol] 2.74 10*6/uL Low 4.6-6.2 [facility] Comment on above: Performed By: #### L 100.0100, L500.2500 ####[facility] [address] [place], [address] RDW SD 59.6 fl High 35.1-43.9 [facility] Comment on above: Performed By: #### L 100.0100, L500.2500 ####[facility] [address] [place], [address] WBC (Bld) [#/Vol] 17.2 10*3/uL High 4.4-11.0 [facility] Comment on above: Performed By: #### L 100.0100, L500.2500 ####[facility] [address] [place], [address] Serum or plasma vancomycin m easurement (mass/volume)Ordered By: Jayla Osuna on 07-19-2024 Vancomycin [Mass/Vol] 16.7 ug/mL High 0.0-15.0 [facility] Vancomycin, Random Levelon 0 07-19-2024 VANCO, RANDOM 16.7 ug/mL High 0.0-15.0 [facility] Comment on above: Result Comment: VANC OMYCIN STANDARD DRUG THERAPY: CRITICAL VALUE IS > 15.0 mg/LVANCOMYCIN HIGH INTENSITY THERAPY: CRITICAL VALUE IS > 20.0 mg/LPLEASE CONTACT PHARMACY SERVICES (#0738) FOR INTERPRETATIONOF RESULTS. THIS RESULT DOES NOT REPRESENT A PEAK OR TROUGHLEVEL FOR THIS DRUG. Performed By: #### L 501.8850 ####[facility] [address] [place], [address] Basic Metabolic Profile (BMP )on 07-18-2024 GFR/1.73 sq M.predicted among non-blacks MDRD (S/P/Bld) [Vol rate/Area] 12 mL/min/{1.73_m2} Low >60 [facility] Comment on above: Order Comment: WILL REORDER Result Comment: WILL REORDERmL/min/1.73m2 CKD-EPI Creatinine Equation (2020) Performed By: #### L 100.0100, L500.2500 ####[facility] [address] [place], [address] Calcium Normal 8.5-10.1 [facility] Comment on above: Order Comment: WILL REORDER Result Comment: WILL REORDER Performed By: #### L 100.0100, L500.2500 ####[facility] [address] [place], [address] CL Normal 98-107 [facility] Comment on above: Order Comment: WILL REORDER Result Comment: WILL REORDER Performed By: #### L 100.0100, L500.2500 ####[facility] [address] [place], [address] CO2 Normal 21.0-32.0 [facility] Comment on above: Order Comment: WILL REORDER Result Comment: WILL REORDER Performed By: #### L 100.0100, L500.2500 ####[facility] [address] [place], [address] EST GFR - AA Normal >60 [facility] Comment on above: Order Comment: WILL REORDER Result Comment: WILL REORDER Performed By: #### L 100.0100, L500.2500 ####[facility] [address] [place], [address] GAP Normal 5-15 [facility] Comment on above: Order Comment: WILL REORDER Result Comment: WILL REORDER Performed By: #### L 100.0100, L500.2500 ####[facility] [address] [place], [address] Potassium Normal 3.5-5.1 [facility] Comment on above: Order Comment: WILL REORDER Result Comment: WILL REORDER Performed By: #### L 100.0100, L500.2500 ####[facility] [address] [place], [address] Basic Metabolic Profile (BMP) Normal 136-145 [facility] Comment on above: Order Comment: WILL REORDER Result Comment: WILL REORDER Performed By: #### L 100.0100, L500.2500 ####[facility] [address] [place], [address] Bedside Glucoseon 07-18-2024 FINGERSTICK GLU 110 mg/dL High 74-106 [facility] Comment on above: Result Comment: FANG GEMENT OF PATIENT CARE PER NURSING PROTOCOL Performed By: #### L 501.080 ####[facility] [address] [place], [address] FINGERSTICK GLU 156 mg/dL High 74-106 [facility] Comment on above: Result Comment: FANG GEMENT OF PATIENT CARE PER NURSING PROTOCOL Performed By: #### L 501.080 ####[facility] [address] [place], [address] FINGERSTICK GLU 139 mg/dL High 74-106 [facility] Comment on above: Result Comment: FANG GEMENT OF PATIENT CARE PER NURSING PROTOCOL Performed By: #### L 501.080 ####[facility] [address] [place], [address] FINGERSTICK GLU 155 mg/dL High 74-106 [facility] Comment on above: Result Comment: FANG GEMENT OF PATIENT CARE PER NURSING PROTOCOL Performed By: #### L 501.080 ####[facility] [address] [place], [address] FINGERSTICK GLU 229 mg/dL High 74-106 [facility] Comment on above: Result Comment: FANG GEMENT OF PATIENT CARE PER NURSING PROTOCOL Performed By: #### L 501.080 ####[facility] [address] [place], [address] Body Tissue Cultureon 2024 [facility] Normal [facility] Comment on above: Performed By: #### M 100.2910, M100.4001, M100.2000 ####[facility] [address] [place], [address] CBC W/Diff, Automatedon 06-24 PATH REV Review[address] Normal [facility] Comment on above: Result Comment: Neut rophilic leukocytosis with left shift.Normocytic anemia.Clinical correlation necessary.Jose Souza M.D. 07/18/24 AMENDED REPORT 07/18/24 9965 PATH REV previously reported as: September nitesh Performed By: #### L 100.0100, L500.2500 ####[facility] [address] [place], [address] Culture, Anaerobic Any Sourc reed 07-18-[address] [facility] Comment on above: Performed By: #### M 100.4001, M100.2000, M100.3000 ####[facility] [address] [place], [address] Review by pathologistOrdered By: Jayla Osuna on 07-18-2024 Pathologist review Jeff (Unsp spec) [Interp] Reviewed [facility] Wound Cultureon 07-18-[address] [facility] Comment on above: Performed By: #### M 100.4001, M100.3000, M100.2000 ####[facility] [address] [place], [address] [facility] Comment on above: Performed By: #### M 100.2000, M100.3000, M100.4001 ####[facility] [address] [place], [address] Ankle Brachial Indexon 07-17 Ankle Brachial Index Normal [facility] Basic Metabolic Profile (BMP )on 07-17-2024 BUN/CRE 13.3 RATIO Normal 10-20 [facility] Comment on above: Performed By: #### L 500.2500, L100.0100 ####[facility] [address] [place], [address] CA,Total 8.3 mg/dL Low 8.5-10.1 [facility] Comment on above: Performed By: #### L 500.2500, L100.0100 ####[facility] [address] [place], [address] Chloride [Moles/Vol] 97 mmol/L Low 98-107 [facility] Comment on above: Performed By: #### L 500.2500, L100.0100 ####[facility] [address] [place], [address] CO2 [Moles/Vol] 25.0 mmol/L Normal 21.0-32.0 [facility] Comment on above: Performed By: #### L 500.2500, L100.0100 ####[facility] [address] [place], [address] Creatinine [Mass/Vol] 6.15 mg/dL High 0.70-1.30 [facility] Comment on above: Result Comment: The validity of the calculated GFR GFRAA in patients over70 years has not been determined. Clinical correlation isessential. Performed By: #### L 500.2500, L100.0100 ####[facility] [address] [place], [address] ECRCL 9.33 ml/min Normal [facility] Comment on above: Performed By: #### L 500.2500, L100.0100 ####[facility] [address] [place], [address] EST GFR - AA 11 mL/min Low >60 [facility] Comment on above: Result Comment: Afri can Angolan GFR Calc Performed By: #### L 500.2500, L100.0100 ####[facility] [address] [place], [address] GAP 8 Normal 5-15 [facility] Comment on above: Performed By: #### L 500.2500, L100.0100 ####[facility] [address] [place], [address] GFR/1.73 sq M.predicted among non-blacks MDRD (S/P/Bld) [Vol rate/Area] 9 mL/min/{1.73_m2} Low >60 [facility] Comment on above: Result Comment: Non- GFR Calc Performed By: #### L 500.2500, L100.0100 ####[facility] [address] [place], [address] Glucose [Mass/Vol] 213 mg/dL High 74-106 [facility] Comment on above: Result Comment: Gluc ose result greater than or equal to 200 mg/dLsuggests DIABETES MELLITUS per A.D.A. criteria. Performed By: #### L 500.2500, L100.0100 ####[facility] [address] [place], [address] Potassium [Moles/Vol] 5.1 mmol/L Normal 3.5-5.1 [facility] Comment on above: Performed By: #### L 500.2500, L100.0100 ####[facility] [address] [place], [address] Sodium [Moles/Vol] 130 mmol/L Low 136-145 [facility] Comment on above: Performed By: #### L 500.2500, L100.0100 ####[facility] [address] [place], [address] Urea nitrogen [Mass/Vol] 82 mg/dL High 7-18 [facility] Comment on above: Performed By: #### L 500.2500, L100.0100 ####[facility] [address] [place], [address] Bedside Glucoseon 07-17-2024 FINGERSTICK GLU 119 mg/dL High 74-106 [facility] Comment on above: Result Comment: FANG GEMENT OF PATIENT CARE PER NURSING PROTOCOL Performed By: #### L 501.080 ####[facility] [address] [place], [address] FINGERSTICK GLU 226 mg/dL High 74-106 [facility] Comment on above: Result Comment: FANG GEMENT OF PATIENT CARE PER NURSING PROTOCOL Performed By: #### L 501.080 ####[facility] [address] [place], [address] FINGERSTICK GLU 203 mg/dL High 74-106 [facility] Comment on above: Result Comment: FANG GEMENT OF PATIENT CARE PER NURSING PROTOCOL Performed By: #### L 501.080 ####[facility] [address] [place], [address] FINGERSTICK GLU 208 mg/dL High 74-106 [facility] Comment on above: Result Comment: FANG GEMENT OF PATIENT CARE PER NURSING PROTOCOL Performed By: #### L 501.080 ####[facility] [address] [place], [address] Blood cultureOrdered By: Rosales Shore on 07-17-2024 Bacteria identified Cx Nom (Bld) No growth in [address] [facility] CBC W/Diff, Automatedon 06-24 Absolute Lymph 2.11 X10 3/uL Normal 0.83-4.51 [facility] Comment on above: Performed By: #### L 500.2500, L100.0100 ####[facility] [address] [place], [address] Absolute Neut 17.0 X10 3/uL High 2.0-7.7 [facility] Comment on above: Performed By: #### L 500.2500, L100.0100 ####[facility] [address] [place], [address] Basophils/100 WBC (Bld) 0.3 % Normal 0-1 [facility] Comment on above: Performed By: #### L 500.2500, L100.0100 ####[facility] [address] [place], [address] Eosinophils/100 WBC (Bld) 0.6 % Normal 0-5 [facility] Comment on above: Performed By: #### L 500.2500, L100.0100 ####[facility] [address] [place], [address] Erythrocyte distribution width (RBC) [Ratio] 17.7 % High 11.6-14.6 [facility] Comment on above: Performed By: #### L 500.2500, L100.0100 ####[facility] [address] [place], [address] Hematocrit (Bld) [Volume fraction] 23.7 % Low 40-54 [facility] Comment on above: Performed By: #### L 500.2500, L100.0100 ####[facility] [address] [place], [address] Hemoglobin (Bld) [Mass/Vol] 7.1 g/dL Low 13.0-16.5 [facility] Comment on above: Performed By: #### L 500.2500, L100.0100 ####[facility] [address] [place], [address] IG% 2.800 High 0.0-0.9 [facility] Comment on above: Result Comment: IG% - Immature Granulocytes (promyelocytes, myelocytes andmetamyelocytes) > 1% indicates that a LEFT SHIFT is Present. Performed By: #### L 500.2500, L100.0100 ####[facility] [address] [place], [address] Lymphocytes/100 WBC (Bld) 9.9 % Low 19-41 [facility] Comment on above: Performed By: #### L 500.2500, L100.0100 ####[facility] [address] [place], [address] MCH (RBC) [Entitic mass] 27.8 pg Normal 27.0-32.0 [facility] Comment on above: Performed By: #### L 500.2500, L100.0100 ####[facility] [address] [place], [address] MCHC (RBC) [Mass/Vol] 30.0 g/dL Low 32-36 [facility] Comment on above: Performed By: #### L 500.2500, L100.0100 ####[facility] [address] [place], [address] MCV (RBC) [Entitic vol] 92.9 fL Normal 80-94 [facility] Comment on above: Performed By: #### L 500.2500, L100.0100 ####[facility] [address] [place], [address] Monocytes/100 WBC (Bld) 6.6 % Normal 0-10 [facility] Comment on above: Performed By: #### L 500.2500, L100.0100 ####[facility] [address] [place], [address] Neutrophils/100 WBC (Bld) 79.8 % High 47-70 [facility] Comment on above: Performed By: #### L 500.2500, L100.0100 ####[facility] [address] [place], [id number] Nucleated RBC (Bld) [#/Vol] 0 10*3/uL Normal 0-5 [facility] Comment on above: Performed By: #### L 500.2500, L100.0100 ####[facility] [address] [place], [address] Platelet mean volume (Bld) [Entitic vol] 10.7 fL Normal 6.2-12.0 [facility] Comment on above: Performed By: #### L 500.2500, L100.0100 ####[facility] [address] [place], [address] Platelets (Bld) [#/Vol] 378 10*3/uL Normal 150-450 [facility] Comment on above: Performed By: #### L 500.2500, L100.0100 ####[facility] [address] [place], [address] RBC (Bld) [#/Vol] 2.55 10*6/uL Low 4.6-6.2 [facility] Comment on above: Performed By: #### L 500.2500, L100.0100 ####[facility] [address] [place], [address] RDW SD 60.7 fl High 35.1-43.9 [facility] Comment on above: Performed By: #### L 500.2500, L100.0100 ####[facility] [address] [place], [address] WBC (Bld) [#/Vol] 21.2 10*3/uL High 4.4-11.0 [facility] Comment on above: Performed By: #### L 500.2500, L100.0100 ####[facility] [address] [place], [address] Chloride measurementOrdered By: Jayla Osuna on 07-17-2024 Chloride [Moles/Vol] 97 mmol/L Low 98-107 [facility] Gram Stainon 07-17-2024 GS UNK UNK Pre-lavage right lower extremity - collected in [place] Gram Stain Rare White Blood Cells 3+ Red Blood Cells Rare Gram positive cocci Normal [facility] Comment on above: Performed By: #### M 100.4001, M100.3000, M1.1999 ####[facility] [address] [place], [address] GS UNK UNK Post-lavage Right lower extremity Gram Stain 3+ Gram positive cocci Rare White Blood Cells Normal [facility] Comment on above: Performed By: #### M 100.2000, M100.3000, M100.4001 ####[facility] [address] [place], [address] GS Reason for Exam: Infection of right lower extremity Bone cortex right lower extremity Gram Stain 4+ Gram positive cocci Rare Gram negative rods No White Blood Cells Normal [facility] Comment on above: Performed By: #### M 100.2910, M100.4001, M1.1999 ####[facility] [address] [place], [address] US Art Duplex Bilat Lower Ex ton 07-17-2024 US Art Duplex Bilat Lower Ext Normal [facility] Vancomycin, Random Levelon 0 2-25-2025 VANCO, RANDOM 13.2 ug/mL Normal 0.0-15.0 [facility] Comment on above: Result Comment: VANC OMYCIN STANDARD DRUG THERAPY: CRITICAL VALUE IS > 15.0 mg/LVANCOMYCIN HIGH INTENSITY THERAPY: CRITICAL VALUE IS > 20.0 mg/LPLEASE CONTACT PHARMACY SERVICES (#4686) FOR INTERPRETATIONOF RESULTS. THIS RESULT DOES NOT REPRESENT A PEAK OR TROUGHLEVEL FOR THIS DRUG. Performed By: #### L 501.8850 ####[facility] [address] [place], [address] 12 Lead EKGon 07-16-20[address] [facility] Activated partial thrombopla stin time (aPTT) in platelet poor plasma by coagulation aOrdered By: Flavio Young on 07-16-2024 aPTT Coag (PPP) [Time] 39.7 s High 24.1-36.2 [facility] Anaerobic cultureOrdered By: Josef Garcia on 07-16-2024 Bacteria identified Anaer cx Nom (Unsp spec) Clostridium cadaveris Abnormal [facility] Bacteria identified Anaer cx Nom (Unsp spec) No anaerobic bacteria isolated. [facility] Bacterial tissue aerobic cul tureOrdered By: Josef Garcia on 07-16-2024 Bacteria identified Aer cx Nom (Tiss) Meth. resistant Staph. aureus Abnormal [facility] Basic Metabolic Profile (BMP )on 07-16-2024 BUN/CRE 13.8 RATIO Normal 10-20 [facility] Comment on above: Performed By: #### L 100.0100, L500.2500 ####[facility] [address] [place], [address] CA,Total 8.7 mg/dL Normal 8.5-10.1 [facility] Comment on above: Performed By: #### L 100.0100, L500.2500 ####[facility] [address] [place], [address] Chloride [Moles/Vol] 97 mmol/L Low 98-107 [facility] Comment on above: Performed By: #### L 100.0100, L500.2500 ####[facility] [address] [place], [address] CO2 [Moles/Vol] 26.0 mmol/L Normal 21.0-32.0 [facility] Comment on above: Performed By: #### L 100.0100, L500.2500 ####[facility] [address] [place], [address] Creatinine [Mass/Vol] 5.13 mg/dL High 0.70-1.30 [facility] Comment on above: Result Comment: The validity of the calculated GFR GFRAA in patients over70 years has not been determined. Clinical correlation isessential. Performed By: #### L 100.0100, L500.2500 ####[facility] [address] [place], [address] ECRCL 11.13 ml/min Normal [facility] Comment on above: Performed By: #### L 100.0100, L500.2500 ####[facility] [address] [place], [address] EST GFR - AA 14 mL/min Low >60 [facility] Comment on above: Result Comment: Afri can Angolan GFR Calc Performed By: #### L 100.0100, L500.2500 ####[facility] [address] [place], [address] GAP 11 Normal 5-15 [facility] Comment on above: Performed By: #### L 100.0100, L500.2500 ####[facility] [address] [place], [address] GFR/1.73 sq M.predicted among non-blacks MDRD (S/P/Bld) [Vol rate/Area] 11 mL/min/{1.73_m2} Low >60 [facility] Comment on above: Result Comment: Non- GFR Calc Performed By: #### L 100.0100, L500.2500 ####[facility] [address] [place], [address] Glucose [Mass/Vol] 127 mg/dL High 74-106 [facility] Comment on above: Result Comment: Fast ing Glucose result greater than or equal to 126 mg/dLsuggests DIABETES MELLITUS per A.D.A. criteria. Performed By: #### L 100.0100, L500.2500 ####[facility] [address] [place], [address] Potassium [Moles/Vol] 4.3 mmol/L Normal 3.5-5.1 [facility] Comment on above: Performed By: #### L 100.0100, L500.2500 ####[facility] [address] [place], [address] Sodium [Moles/Vol] 134 mmol/L Low 136-145 [facility] Comment on above: Performed By: #### L 100.0100, L500.2500 ####[facility] [address] [place], [address] Urea nitrogen [Mass/Vol] 71 mg/dL High 7-18 [facility] Comment on above: Performed By: #### L 100.0100, L500.2500 ####[facility] [address] [place], [address] Bedside Glucoseon 07-16-2024 FINGERSTICK GLU 105 mg/dL Normal 74-106 [facility] Comment on above: Result Comment: FANG GEMENT OF PATIENT CARE PER NURSING PROTOCOL Performed By: #### L 501.080 ####[facility] [address] [place], [address] FINGERSTICK GLU 118 mg/dL High 74-106 [facility] Comment on above: Result Comment: FANG GEMENT OF PATIENT CARE PER NURSING PROTOCOL Performed By: #### L 501.080 ####[facility] [address] [place], [address] FINGERSTICK GLU 122 mg/dL High 74-106 [facility] Comment on above: Result Comment: FANG VAZQUEZ OF PATIENT CARE PER NURSING PROTOCOL Performed By: #### L 501.080 ####[facility] [address] [place], [address] Blood cultureOrdered By: Rosales Shore on 07-16-2024 Bacteria identified Cx Nom (Bld) No growth in [address] [facility] CBC W/Diff, Automatedon 06-24 PATH REV [address] Normal [facility] Comment on above: Result Comment: Neut rophilic leukocytosis with left shift.Normocytic anemia.Clinical correlation necessary.Jose Souza M.D. 07/16/24 AMENDED REPORT 07/16/24 1406 PATH REV previously reported as: September Performed By: #### L 101.9900, L500.2500, L100.0100, L501.6710 ####[facility] [address] [place], [address] Absolute Lymph 2.43 X10 3/uL Normal 0.83-4.51 [facility] Comment on above: Performed By: #### L 100.0100, L500.2500 ####[facility] [address] [place], [address] Absolute Neut 12.8 X10 3/uL High 2.0-7.7 [facility] Comment on above: Performed By: #### L 100.0100, L500.2500 ####[facility] [address] [place], [address] Basophils/100 WBC (Bld) 0.2 % Normal 0-1 [facility] Comment on above: Performed By: #### L 100.0100, L500.2500 ####[facility] [address] [place], [address] Eosinophils/100 WBC (Bld) 1.6 % Normal 0-5 [facility] Comment on above: Performed By: #### L 100.0100, L500.2500 ####[facility] [address] [place], [address] Erythrocyte distribution width (RBC) [Ratio] 17.7 % High 11.6-14.6 [facility] Comment on above: Performed By: #### L 100.0100, L500.2500 ####[facility] [address] [place], [address] Hematocrit (Bld) [Volume fraction] 25.2 % Low 40-54 [facility] Comment on above: Performed By: #### L 100.0100, L500.2500 ####[facility] [address] [place], [address] Hemoglobin (Bld) [Mass/Vol] 7.5 g/dL Low 13.0-16.5 [facility] Comment on above: Performed By: #### L 100.0100, L500.2500 ####[facility] [address] [place], [address] IG% 3.200 High 0.0-0.9 [facility] Comment on above: Result Comment: IG% - Immature Granulocytes (promyelocytes, myelocytes andmetamyelocytes) > 1% indicates that a LEFT SHIFT is Present. Performed By: #### L 100.0100, L500.2500 ####[facility] [address] [place], [address] Lymphocytes/100 WBC (Bld) 14.0 % Low 19-41 [facility] Comment on above: Performed By: #### L 100.0100, L500.2500 ####[facility] [address] [place], [address] MCH (RBC) [Entitic mass] 28.2 pg Normal 27.0-32.0 [facility] Comment on above: Performed By: #### L 100.0100, L500.2500 ####[facility] [address] [place], [address] MCHC (RBC) [Mass/Vol] 29.8 g/dL Low 32-36 [facility] Comment on above: Performed By: #### L 100.0100, L500.2500 ####[facility] [address] [place], [address] MCV (RBC) [Entitic vol] 94.7 fL High 80-94 [facility] Comment on above: Performed By: #### L 100.0100, L500.2500 ####[facility] [address] [place], [address] Monocytes/100 WBC (Bld) 7.5 % Normal 0-10 [facility] Comment on above: Performed By: #### L 100.0100, L500.2500 ####[facility] [address] [place], [address] Neutrophils/100 WBC (Bld) 73.5 % High 47-70 [facility] Comment on above: Performed By: #### L 100.0100, L500.2500 ####[facility] [address] [place], [address] Nucleated RBC (Bld) [#/Vol] 0 10*3/uL Normal 0-5 [facility] Comment on above: Performed By: #### L 100.0100, L500.2500 ####[facility] [address] [place], [address] Platelet mean volume (Bld) [Entitic vol] 10.6 fL Normal 6.2-12.0 [facility] Comment on above: Performed By: #### L 100.0100, L500.2500 ####[facility] [address] [place], [address] Platelets (Bld) [#/Vol] 378 10*3/uL Normal 150-450 [facility] Comment on above: Performed By: #### L 100.0100, L500.2500 ####[facility] [address] [place], [address] RBC (Bld) [#/Vol] 2.66 10*6/uL Low 4.6-6.2 [facility] Comment on above: Performed By: #### L 100.0100, L500.2500 ####[facility] [address] [place], [address] RDW SD 60.4 fl High 35.1-43.9 [facility] Comment on above: Performed By: #### L 100.0100, L500.2500 ####[facility] [address] [place], [address] WBC (Bld) [#/Vol] 17.4 10*3/uL High 4.4-11.0 [facility] Comment on above: Performed By: #### L 100.0100, L500.2500 ####[facility] [address] [place], [address] Consultation - Infectious Dx on 07-16-2024 Consultation - Infectious Dx Normal [facility] Consultation - Nephrologyon 07-16-2024 Consultation - Nephrology Normal [facility] Culture, Blood (WB)on [address] [facility] Comment on above: Performed By: #### M 100.636, M200.1000 ####[facility] [address] [place], [address] Foot 2 Viewson 07-16-2024 Foot [address] [facility] Gram stainOrdered By: Kesha Gracia on 07-16-2024 Microscopic observation Gram stain Nom (Unsp spec) [facility] Hemoglobin A1con 07-16-2024 HbA1c (Bld) [Mass fraction] 6.0 % High 3.8-5.6 [facility] Comment on above: Order Comment: Comme nts: Pre-operative Result Comment: Norm al < 5.7 % Prediabetic 5.7 - 6.4 % Diabetic >or= 6.5 % Please note range changes. Performed By: #### L 300.3900, L501.9985, L300.4310 ####[facility] [address] [place], [address] Hemoglobin A1c percentageOrd ered By: Flavio Young on 07-16-2024 HbA1c (Bld) [Mass fraction] 6.0 % High 3.8-5.6 [facility] MR/POSTOP.ANEon 07-16-2024 MR/POSTOP.ANE Normal [facility] MR/[id number] 07-16-2024 MR/POSTOPAN2 Normal [facility] Operative Reporton Operative Report Normal [facility] Partial Thromboplast Timeon 07-16-2024 aPTT Coag (Bld) [Time] 39.7 s High 24.1-36.2 [facility] Comment on above: Order Comment: Comme nts: Pre-operative Performed By: #### L 300.3900, L501.9985, L300.4310 ####[facility] [address] [place], [address] Prothrombin Time w/INRon INR Coag (PPP) [Relative time] 1.3 {INR} Normal [facility] Comment on above: Order Comment: Comme nts: Pre-operative Performed By: #### L 300.3900, L501.9985, L300.4310 ####[facility] [address] [place], [address] PT Coag (PPP) [Time] 16.8 s High 11.7-14.9 [facility] Comment on above: Order Comment: Comme nts: Pre-operative Performed By: #### L 300.3900, L501.9985, L300.4310 ####[facility] [address] [place], [address] Prothrombin timeOrdered By: Flavio Young on 07-16-2024 PT Coag (PPP) [Time] 16.8 s High 11.7-14.9 [facility] Routine wound cultureOrdered By: Josef Garcia on 07-16-2024 Microbial culture, routine Meth. resistant Staph. aureus Abnormal [facility] Basic Metabolic Profile (BMP )on 07-15-2024 BUN/CRE 13.9 RATIO Normal 10-20 [facility] Comment on above: Performed By: #### L 500.2500, L100.0100 ####[facility] [address] [place], [address] CA,Total 8.8 mg/dL Normal 8.5-10.1 [facility] Comment on above: Performed By: #### L 500.2500, L100.0100 ####[facility] [address] [place], [address] Chloride [Moles/Vol] 98 mmol/L Normal 98-107 [facility] Comment on above: Performed By: #### L 500.2500, L100.0100 ####[facility] [address] [place], [address] CO2 [Moles/Vol] 27.0 mmol/L Normal 21.0-32.0 [facility] Comment on above: Performed By: #### L 500.2500, L100.0100 ####[facility] [address] [place], [address] Creatinine [Mass/Vol] 3.97 mg/dL High 0.70-1.30 [facility] Comment on above: Result Comment: The validity of the calculated GFR GFRAA in patients over70 years has not been determined. Clinical correlation isessential. Performed By: #### L 500.2500, L100.0100 ####[facility] [address] [place], [address] ECRCL 14.64 ml/min Normal [facility] Comment on above: Performed By: #### L 500.2500, L100.0100 ####[facility] [address] [place], [address] EST GFR - AA 19 mL/min Low >60 [facility] Comment on above: Result Comment: Afri can Angolan GFR Calc Performed By: #### L 500.2500, L100.0100 ####[facility] [address] [place], [address] GAP 9 Normal 5-15 [facility] Comment on above: Performed By: #### L 500.2500, L100.0100 ####[facility] [address] [place], [address] GFR/1.73 sq M.predicted among non-blacks MDRD (S/P/Bld) [Vol rate/Area] 15 mL/min/{1.73_m2} Low >60 [facility] Comment on above: Result Comment: Non- GFR Calc Performed By: #### L 500.2500, L100.0100 ####[facility] [address] [place], [address] Glucose [Mass/Vol] 204 mg/dL High 74-106 [facility] Comment on above: Result Comment: Gluc ose result greater than or equal to 200 mg/dLsuggests DIABETES MELLITUS per A.D.A. criteria. Performed By: #### L 500.2500, L100.0100 ####[facility] [address] [place], [address] Potassium [Moles/Vol] 3.5 mmol/L Normal 3.5-5.1 [facility] Comment on above: Performed By: #### L 500.2500, L100.0100 ####[facility] [address] [place], [address] Sodium [Moles/Vol] 133 mmol/L Low 136-145 [facility] Comment on above: Performed By: #### L 500.2500, L100.0100 ####[facility] [address] [place], [address] Urea nitrogen [Mass/Vol] 55 mg/dL High 7-18 [facility] Comment on above: Performed By: #### L 500.2500, L100.0100 ####[facility] [address] [place], [address] Bedside Glucoseon 07-15-2024 FINGERSTICK GLU 138 mg/dL High 74-106 [facility] Comment on above: Result Comment: FANG GEMENT OF PATIENT CARE PER NURSING PROTOCOL Performed By: #### L 501.080 ####[facility] [address] [place], [address] FINGERSTICK GLU 57 mg/dL Low 74-106 [facility] Comment on above: Result Comment: FANG GEMENT OF PATIENT CARE PER NURSING PROTOCOL Performed By: #### L 501.080 ####[facility] [address] [place], [address] FINGERSTICK GLU 141 mg/dL High 74-106 [facility] Comment on above: Result Comment: FANG GEMENT OF PATIENT CARE PER NURSING PROTOCOL Performed By: #### L 501.080 ####[facility] [address] [place], [address] FINGERSTICK GLU 214 mg/dL High 74-106 [facility] Comment on above: Result Comment: FANG GEMENT OF PATIENT CARE PER NURSING PROTOCOL Performed By: #### L 501.080 ####[facility] [address] [place], [address] CBC W/Diff, Automatedon 06-24 Absolute Lymph 2.18 X10 3/uL Normal 0.83-4.51 [facility] Comment on above: Performed By: #### L 500.2500, L100.0100 ####[facility] [address] [place], [address] Absolute Neut 14.1 X10 3/uL High 2.0-7.7 [facility] Comment on above: Performed By: #### L 500.2500, L100.0100 ####[facility] [address] [place], [address] Basophils/100 WBC (Bld) 0.2 % Normal 0-1 [facility] Comment on above: Performed By: #### L 500.2500, L100.0100 ####[facility] [address] [place], [address] Eosinophils/100 WBC (Bld) 1.2 % Normal 0-5 [facility] Comment on above: Performed By: #### L 500.2500, L100.0100 ####[facility] [address] [place], [address] Erythrocyte distribution width (RBC) [Ratio] 17.6 % High 11.6-14.6 [facility] Comment on above: Performed By: #### L 500.2500, L100.0100 ####[facility] [address] [place], [address] Hematocrit (Bld) [Volume fraction] 26.7 % Low 40-54 [facility] Comment on above: Performed By: #### L 500.2500, L100.0100 ####[facility] [address] [place], [address] Hemoglobin (Bld) [Mass/Vol] 7.8 g/dL Low 13.0-16.5 [facility] Comment on above: Performed By: #### L 500.2500, L100.0100 ####[facility] [address] [place], [address] IG% 2.500 High 0.0-0.9 [facility] Comment on above: Result Comment: IG% - Immature Granulocytes (promyelocytes, myelocytes andmetamyelocytes) > 1% indicates that a LEFT SHIFT is Present. Performed By: #### L 500.2500, L100.0100 ####[facility] [address] [place], [address] Lymphocytes/100 WBC (Bld) 11.9 % Low 19-41 [facility] Comment on above: Performed By: #### L 500.2500, L100.0100 ####[facility] [address] [place], [address] MCH (RBC) [Entitic mass] 27.9 pg Normal 27.0-32.0 [facility] Comment on above: Performed By: #### L 500.2500, L100.0100 ####[facility] [address] [place], [address] MCHC (RBC) [Mass/Vol] 29.2 g/dL Low 32-36 [facility] Comment on above: Performed By: #### L 500.2500, L100.0100 ####[facility] [address] [place], [address] MCV (RBC) [Entitic vol] 95.4 fL High 80-94 [facility] Comment on above: Performed By: #### L 500.2500, L100.0100 ####[facility] [address] [place], [address] Monocytes/100 WBC (Bld) 7.1 % Normal 0-10 [facility] Comment on above: Performed By: #### L 500.2500, L100.0100 ####[facility] [address] [place], [address] Neutrophils/100 WBC (Bld) 77.1 % High 47-70 [facility] Comment on above: Performed By: #### L 500.2500, L100.0100 ####[facility] [address] [place], [address] Nucleated RBC (Bld) [#/Vol] 0 10*3/uL Normal 0-5 [facility] Comment on above: Performed By: #### L 500.2500, L100.0100 ####[facility] [address] [place], [address] Platelet mean volume (Bld) [Entitic vol] 10.7 fL Normal 6.2-12.0 [facility] Comment on above: Performed By: #### L 500.2500, L100.0100 ####[facility] [address] [place], [address] Platelets (Bld) [#/Vol] 361 10*3/uL Normal 150-450 [facility] Comment on above: Performed By: #### L 500.2500, L100.0100 ####[facility] [address] [place], [address] RBC (Bld) [#/Vol] 2.80 10*6/uL Low 4.6-6.2 [facility] Comment on above: Performed By: #### L 500.2500, L100.0100 ####[facility] [address] [place], [address] RDW SD 61.1 fl High 35.1-43.9 [facility] Comment on above: Performed By: #### L 500.2500, L100.0100 ####[facility] [address] [place], [address] WBC (Bld) [#/Vol] 18.3 10*3/uL High 4.4-11.0 [facility] Comment on above: Performed By: #### L 500.2500, L100.0100 ####[facility] [address] [place], [address] Foot min 3 Viewson 5 Foot min [address] [facility] Wound Cultureon 07-15-[address] [facility] Comment on above: Performed By: #### M 100.4001, M100.2000, M100.3000 ####[facility] [address] [place], [address] BC GPC IDon 07-14-2024 BC GPC ID Normal [facility] Comment on above: Performed By: #### M 100.636, M200.1000 ####[facility] [address] [place], [address] Basic Metabolic Profile (BMP )on 07-14-2024 BUN/CRE 11.0 RATIO Normal 10-20 [facility] Comment on above: Performed By: #### L 500.2500, L100.0100 ####[facility] [address] [place], [address] CA,Total 8.6 mg/dL Normal 8.5-10.1 [facility] Comment on above: Performed By: #### L 500.2500, L100.0100 ####[facility] [address] [place], [address] Chloride [Moles/Vol] 94 mmol/L Low 98-107 [facility] Comment on above: Performed By: #### L 500.2500, L100.0100 ####[facility] [address] [place], [address] CO2 [Moles/Vol] 30.0 mmol/L Normal 21.0-32.0 [facility] Comment on above: Performed By: #### L 500.2500, L100.0100 ####[facility] [address] [place], [address] Creatinine [Mass/Vol] 4.84 mg/dL High 0.70-1.30 [facility] Comment on above: Result Comment: The validity of the calculated GFR GFRAA in patients over70 years has not been determined. Clinical correlation isessential. Performed By: #### L 500.2500, L100.0100 ####[facility] [address] [place], [address] ECRCL 11.51 ml/min Normal [facility] Comment on above: Performed By: #### L 500.2500, L100.0100 ####[facility] [address] [place], [address] EST GFR - AA 15 mL/min Low >60 [facility] Comment on above: Result Comment: Afri can Angolan GFR Calc Performed By: #### L 500.2500, L100.0100 ####[facility] [address] [place], [address] GAP 8 Normal 5-15 [facility] Comment on above: Performed By: #### L 500.2500, L100.0100 ####[facility] [address] [place], [address] GFR/1.73 sq M.predicted among non-blacks MDRD (S/P/Bld) [Vol rate/Area] 12 mL/min/{1.73_m2} Low >60 [facility] Comment on above: Result Comment: Non- GFR Calc Performed By: #### L 500.2500, L100.0100 ####[facility] [address] [place], [address] Glucose [Mass/Vol] 244 mg/dL High 74-106 [facility] Comment on above: Result Comment: Gluc ose result greater than or equal to 200 mg/dLsuggests DIABETES MELLITUS per A.D.A. criteria. Performed By: #### L 500.2500, L100.0100 ####[facility] [address] [place], [address] Potassium [Moles/Vol] 3.4 mmol/L Low 3.5-5.1 [facility] Comment on above: Performed By: #### L 500.2500, L100.0100 ####[facility] [address] [place], [address] Sodium [Moles/Vol] 132 mmol/L Low 136-145 [facility] Comment on above: Performed By: #### L 500.2500, L100.0100 ####[facility] [address] [place], [address] Urea nitrogen [Mass/Vol] 53 mg/dL High 7-18 [facility] Comment on above: Performed By: #### L 500.2500, L100.0100 ####[facility] [address] [place], [address] Bedside Glucoseon 07-14-2024 FINGERSTICK GLU 196 mg/dL High 74-106 [facility] Comment on above: Result Comment: FANG GEMENT OF PATIENT CARE PER NURSING PROTOCOL Performed By: #### L 501.080 ####[facility] [address] [place], [address] FINGERSTICK GLU 103 mg/dL Normal 74-106 [facility] Comment on above: Result Comment: FANG GEMENT OF PATIENT CARE PER NURSING PROTOCOL Performed By: #### L 501.080 ####[facility] [address] [place], [address] FINGERSTICK GLU 183 mg/dL High 74-106 [facility] Comment on above: Result Comment: FANG GEMENT OF PATIENT CARE PER NURSING PROTOCOL Performed By: #### L 501.080 ####[facility] [address] [place], [address] FINGERSTICK GLU 239 mg/dL High 74-106 [facility] Comment on above: Result Comment: FANG GEMENT OF PATIENT CARE PER NURSING PROTOCOL Performed By: #### L 501.080 ####[facility] [address] [place], [address] CBC W/Diff, Automatedon -2 -2024 Absolute Lymph 1.49 X10 3/uL Normal 0.83-4.51 [facility] Comment on above: Performed By: #### L 500.2500, L100.0100 ####[facility] [address] [place], [address] Absolute Neut 14.7 X10 3/uL High 2.0-7.7 [facility] Comment on above: Performed By: #### L 500.2500, L100.0100 ####[facility] [address] [place], [address] Basophils/100 WBC (Bld) 0.2 % Normal 0-1 [facility] Comment on above: Performed By: #### L 500.2500, L100.0100 ####[facility] [address] [place], [address] Eosinophils/100 WBC (Bld) 0.9 % Normal 0-5 [facility] Comment on above: Performed By: #### L 500.2500, L100.0100 ####[facility] [address] [place], [address] Erythrocyte distribution width (RBC) [Ratio] 17.6 % High 11.6-14.6 [facility] Comment on above: Performed By: #### L 500.2500, L100.0100 ####[facility] [address] [place], [address] Hematocrit (Bld) [Volume fraction] 25.3 % Low 40-54 [facility] Comment on above: Performed By: #### L 500.2500, L100.0100 ####[facility] [address] [place], [address] Hemoglobin (Bld) [Mass/Vol] 7.8 g/dL Low 13.0-16.5 [facility] Comment on above: Performed By: #### L 500.2500, L100.0100 ####[facility] [address] [place], [address] IG% 3.300 High 0.0-0.9 [facility] Comment on above: Result Comment: IG% - Immature Granulocytes (promyelocytes, myelocytes andmetamyelocytes) > 1% indicates that a LEFT SHIFT is Present. Performed By: #### L 500.2500, L100.0100 ####[facility] [address] [place], [address] Lymphocytes/100 WBC (Bld) 8.2 % Low 19-41 [facility] Comment on above: Performed By: #### L 500.2500, L100.0100 ####[facility] [address] [place], [address] MCH (RBC) [Entitic mass] 28.8 pg Normal 27.0-32.0 [facility] Comment on above: Performed By: #### L 500.2500, L100.0100 ####[facility] [address] [place], [address] MCHC (RBC) [Mass/Vol] 30.8 g/dL Low 32-36 [facility] Comment on above: Performed By: #### L 500.2500, L100.0100 ####[facility] [address] [place], [address] MCV (RBC) [Entitic vol] 93.4 fL Normal 80-94 [facility] Comment on above: Performed By: #### L 500.2500, L100.0100 ####[facility] [address] [place], [address] Monocytes/100 WBC (Bld) 7.2 % Normal 0-10 [facility] Comment on above: Performed By: #### L 500.2500, L100.0100 ####[facility] [address] [place], [address] Neutrophils/100 WBC (Bld) 80.2 % High 47-70 [facility] Comment on above: Performed By: #### L 500.2500, L100.0100 ####[facility] [address] [place], [address] Nucleated RBC (Bld) [#/Vol] 0 10*3/uL Normal 0-5 [facility] Comment on above: Performed By: #### L 500.2500, L100.0100 ####[facility] [address] [place], [address] Platelet mean volume (Bld) [Entitic vol] 10.6 fL Normal 6.2-12.0 [facility] Comment on above: Performed By: #### L 500.2500, L100.0100 ####[facility] [address] [place], [address] Platelets (Bld) [#/Vol] 346 10*3/uL Normal 150-450 [facility] Comment on above: Performed By: #### L 500.2500, L100.0100 ####[facility] [address] [place], [address] RBC (Bld) [#/Vol] 2.71 10*6/uL Low 4.6-6.2 [facility] Comment on above: Performed By: #### L 500.2500, L100.0100 ####[facility] [address] [place], [address] RDW SD 59.7 fl High 35.1-43.9 [facility] Comment on above: Performed By: #### L 500.2500, L100.0100 ####[facility] [address] [place], [address] WBC (Bld) [#/Vol] 18.3 10*3/uL High 4.4-11.0 [facility] Comment on above: Performed By: #### L 500.2500, L100.0100 ####[facility] [address] [place], [address] Echo Completeon 07-14-[address] [facility] Gram Stainon 07-14-2024 GS Gram Stain 1+ Gram positive rods 4+ Gram positive cocci Rare White Blood Cells No Epithelial cells Normal [facility] Comment on above: Performed By: #### M 100.4001, M100.2000, M100.3000 ####[facility] [address] [place], [address] Vancomycin, Random Levelon 0 07-14-2024 VANCO, RANDOM 15.3 ug/mL High 0.0-15.0 [facility] Comment on above: Order Comment: Comme nts: please draw with AM labs Result Comment: VANC OMYCIN STANDARD DRUG THERAPY: CRITICAL VALUE IS > 15.0 mg/LVANCOMYCIN HIGH INTENSITY THERAPY: CRITICAL VALUE IS > 20.0 mg/LPLEASE CONTACT PHARMACY SERVICES (#3428) FOR INTERPRETATIONOF RESULTS. THIS RESULT DOES NOT REPRESENT A PEAK OR TROUGHLEVEL FOR THIS DRUG. Performed By: #### L 501.8850 ####[facility] [address] [place], [address] Anaerobic cultureOrdered By: Chung Humphreys on 07-13-2024 Bacteria identified Anaer cx Nom (Unsp spec) Clostridium perfringens Abnormal [facility] Basic Metabolic Profile (BMP )on 07-13-2024 BUN/CRE 8.5 RATIO Low 10-20 [facility] Comment on above: Performed By: #### L 101.9900, L500.2500, L100.0100, L501.6710 ####[facility] [address] [place], [address] CA,Total 8.9 mg/dL Normal 8.5-10.1 [facility] Comment on above: Performed By: #### L 101.9900, L500.2500, L100.0100, L501.6710 ####[facility] [address] [place], [address] Chloride [Moles/Vol] 93 mmol/L Low 98-107 [facility] Comment on above: Performed By: #### L 101.9900, L500.2500, L100.0100, L501.6710 ####[facility] [address] [place], [address] CO2 [Moles/Vol] 32.0 mmol/L Normal 21.0-32.0 [facility] Comment on above: Performed By: #### L 101.9900, L500.2500, L100.0100, L501.6710 ####[facility] [address] [place], [address] Creatinine [Mass/Vol] 4.35 mg/dL High 0.70-1.30 [facility] Comment on above: Result Comment: The validity of the calculated GFR GFRAA in patients over70 years has not been determined. Clinical correlation isessential. Performed By: #### L 101.9900, L500.2500, L100.0100, L501.6710 ####[facility] [address] [place], [address] ECRCL 13.09 ml/min Normal [facility] Comment on above: Performed By: #### L 101.9900, L500.2500, L100.0100, L501.6710 ####[facility] [address] [place], [address] EST GFR - AA 17 mL/min Low >60 [facility] Comment on above: Result Comment: Afri can Angolan GFR Calc Performed By: #### L 101.9900, L500.2500, L100.0100, L501.6710 ####[facility] [address] [place], [address] GAP 8 Normal 5-15 [facility] Comment on above: Performed By: #### L 101.9900, L500.2500, L100.0100, L501.6710 ####[facility] [address] [place], [address] GFR/1.73 sq M.predicted among non-blacks MDRD (S/P/Bld) [Vol rate/Area] 14 mL/min/{1.73_m2} Low >60 [facility] Comment on above: Result Comment: Non- GFR Calc Performed By: #### L 101.9900, L500.2500, L100.0100, L501.6710 ####[facility] [address] [place], [address] Glucose [Mass/Vol] 132 mg/dL High 74-106 [facility] Comment on above: Result Comment: Fast ing Glucose result greater than or equal to 126 mg/dLsuggests DIABETES MELLITUS per A.D.A. criteria. Performed By: #### L 101.9900, L500.2500, L100.0100, L501.6710 ####[facility] [address] [place], [address] Potassium [Moles/Vol] 3.7 mmol/L Normal 3.5-5.1 [facility] Comment on above: Result Comment: Slig ht Hemolysis, Result may be falsely increased. Performed By: #### L 101.9900, L500.2500, L100.0100, L501.6710 ####[facility] [address] [place], [address] Sodium [Moles/Vol] 133 mmol/L Low 136-145 [facility] Comment on above: Performed By: #### L 101.9900, L500.2500, L100.0100, L501.6710 ####[facility] [address] [place], [address] Urea nitrogen [Mass/Vol] 37 mg/dL High 7-18 [facility] Comment on above: Performed By: #### L 101.9900, L500.2500, L100.0100, L501.6710 ####[facility] [address] [place], [address] Bedside Glucoseon 07-13-2024 FINGERSTICK GLU 231 mg/dL High 74-106 [facility] Comment on above: Result Comment: FANG VAZQUEZ OF PATIENT CARE PER NURSING PROTOCOL Performed By: #### L 501.080 ####[facility] [address] [place], [place], [address] Blood cultureOrdered By: Noelle Humphreys on 07-13-2024 Bacteria identified Cx Nom (Bld) Meth. resistant Staph. aureus Abnormal [facility] Blood manual differential co mment interpretation (narrative result)Ordered By: Chung Humphreys on 07-13-2024 Manual differential comment Jeff (Bld) [Interp] SEE COMMENT [facility] C-reactive protein measureme nt by high sensitivity methodOrdered By: Chung Humphreys on 07-13-2024 C-reactive protein measurement by high sensitivity method 301.00 mg/L High 0.0-3.0 [facility] CRPon 07-13-2024 C-REACTIVE PROT 301.00 mg/L High 0.0-3.0 [facility] Comment on above: Result Comment: C-Re active Protein (CRP) provides useful information for thediagnosis, therapy and monitoring of inflammatory processesand associated diseases. For the evaluation of Relative Riskfor Cardiovascular Disease, a High Sensitivity CRP (HSCRP)should be ordered. Performed By: #### L 101.9900, L500.2500, L100.0100, L501.6710 ####[facility] [address] [place], [address] Chest PA and Lateralon 07-13 Chest PA and Lateral Normal [facility] Emergency Department Summary on 07-13-2024 Emergency Department Summary Normal [facility] Erythrocyte Sed Rateon 07-13 SED RATE 53 mm/hr High 0-20 [facility] Comment on above: Performed By: #### L 101.9900, L500.2500, L100.0100, L501.6710 ####[facility] [address] [place], [place], [address] Erythrocyte morphology asses smentOrdered By: Chung Humphreys on 07-13-2024 RBC morphology finding Nom (Bld) N CHROM NORMAL NORM C&C [facility] Erythrocyte sedimentation ra teOrdered By: Chung Humphreys on 07-13-2024 ESR (Bld) [Velocity] 53 mm/h High 0-20 [facility] Foot min 3 Viewson 5 Foot min [address] [facility] Gram stainOrdered By: Kevin Humphreys on 07-13-2024 Microscopic observation Gram stain Nom (Unsp spec) [facility] H AND P Exam - Hospitaliston 07-13-2024 H&P Exam - Hospitalist Normal [facility] Hypochromatic red blood cell detectionOrdered By: Chung Humphreys on 07-13-2024 Hypochromia Ql (Bld) RARE [facility] Influenza virus A and B and SARS-CoV-2 (COVID-19) and Respiratory syncytial virus RNAOrdered By: Chung Humphreys on 07-13-2024 SARS-CoV-2 (COVID-19) RNA EZEKIEL+probe Ql (Unsp spec) [facility] M100.678on 07-13-2024 M100.678 SARS-CoV-2 (COVID 19 ) Negative INFLUENZA A Negative INFLUENZA B Negative RSV PCR Negative Normal [facility] Comment on above: Performed By: #### M 100.678 ####[facility] [address] [place], [place], [id number] Macrocytes detectionOrdered By: Chung Humphreys on 07-13-2024 Macrocytes Ql (Bld) 1+ [facility] No Panel InformationOrdered By: Chung Humphreys on 07-13-2024 1+ [facility] Organism identificationOrder ed By: Chung Humphreys on 07-13-2024 Microorganism identified Cx Nom (Unsp spec) Meth. resistant Staph. aureus Abnormal [facility] Platelet estimateOrdered By: Chung Humphreys on 07-13-2024 Platelets LM Ql (Bld) ADEQUATE ADEQ [facility] Routine wound cultureOrdered By: Chung Humphreys on 07-13-2024 Microbial culture, routine Meth. resistant Staph. aureus Abnormal [facility] Urinalysis, Completeon 07-13 BACTERIA Normal None Seen [facility] Comment on above: Order Comment: SENT LABEL TO MS3 TO COLLECTCOLLECTOR TO SPECIFY Result Comment: JAYY ENT DISCHARGED Performed By: #### L 400.0001 ####[facility] [address] [place], [address] BILIRUBIN URINE Normal Negative [facility] Comment on above: Order Comment: SENT LABEL TO MS3 TO COLLECTCOLLECTOR TO SPECIFY Result Comment: JAYY ENT DISCHARGED Performed By: #### L 400.0001 ####[facility] [address] [place], [address] Clarity (U) Normal Clear [facility] Comment on above: Order Comment: SENT LABEL TO MS3 TO COLLECTCOLLECTOR TO SPECIFY Result Comment: JAYY ENT DISCHARGED Performed By: #### L 400.0001 ####[facility] [address] [place], [address] Color (U) Normal Yellow [facility] Comment on above: Order Comment: SENT LABEL TO MS3 TO COLLECTCOLLECTOR TO SPECIFY Result Comment: JAYY ENT DISCHARGED Performed By: #### L 400.0001 ####[facility] [address] [place], [address] EPI,SQUAMOUS Normal 0-5 [facility] Comment on above: Order Comment: SENT LABEL TO MS3 TO COLLECTCOLLECTOR TO SPECIFY Result Comment: JAYY ENT DISCHARGED Performed By: #### L 400.0001 ####[facility] [address] [place], [address] GLUCOSE, UR Normal Normal [facility] Comment on above: Order Comment: SENT LABEL TO MS3 TO COLLECTCOLLECTOR TO SPECIFY Result Comment: JAYY ENT DISCHARGED Performed By: #### L 400.0001 ####[facility] [address] [place], [address] KETONE UR Normal Negative [facility] Comment on above: Order Comment: SENT LABEL TO MS3 TO COLLECTCOLLECTOR TO SPECIFY Result Comment: JAYY ENT DISCHARGED Performed By: #### L 400.0001 ####[facility] [address] [facility] [address] LEUK ESTERASE Normal Negative [facility] Comment on above: Order Comment: SENT LABEL TO MS3 TO COLLECTCOLLECTOR TO SPECIFY Result Comment: JAYY ENT DISCHARGED Performed By: #### L 400.0001 ####[facility] [address] [place] [id number] Mucus Ql (Urine sed) Normal [facility] Comment on above: Order Comment: SENT LABEL TO MS3 TO COLLECTCOLLECTOR TO SPECIFY Result Comment: JAYY ENT DISCHARGED Performed By: #### L 400.0001 ####[facility] [address] [facility] [address] Nitrite Ql (U) Normal Negative [facility] Comment on above: Order Comment: SENT LABEL TO MS3 TO COLLECTCOLLECTOR TO SPECIFY Result Comment: JAYY ENT DISCHARGED Performed By: #### L 400.0001 ####[facility] [address] [facility] [address] OCCULT BLOOD-UR Normal Negative [facility] Comment on above: Order Comment: SENT LABEL TO MS3 TO COLLECTCOLLECTOR TO SPECIFY Result Comment: JAYY ENT DISCHARGED Performed By: #### L 400.0001 ####[facility] [address] [facility] [address] pH UR Normal 5.0 - 8.0 [facility] Comment on above: Order Comment: SENT LABEL TO MS3 TO COLLECTCOLLECTOR TO SPECIFY Result Comment: JAYY ENT DISCHARGED Performed By: #### L 400.0001 ####[facility] [address] [place], [address] PROT DIPSTX Normal Negative [facility] Comment on above: Order Comment: SENT LABEL TO MS3 TO COLLECTCOLLECTOR TO SPECIFY Result Comment: JAYY ENT DISCHARGED Performed By: #### L 400.0001 ####[facility] [address] [place], [address] RBC Normal 0-5 [facility] Comment on above: Order Comment: SENT LABEL TO MS3 TO COLLECTCOLLECTOR TO SPECIFY Result Comment: JAYY ENT DISCHARGED Performed By: #### L 400.0001 ####[facility] [address] [place], [address] SP.GR. DIPSTX Normal 1.002-1.030 [facility] Comment on above: Order Comment: SENT LABEL TO MS3 TO COLLECTCOLLECTOR TO SPECIFY Result Comment: JAYY ENT DISCHARGED Performed By: #### L 400.0001 ####[facility] [address] [place], [address] [facility] Comment on above: Order Comment: SENT LABEL TO MS3 TO COLLECTCOLLECTOR TO SPECIFY Result Comment: JAYY ENT DISCHARGED Performed By: #### L 400.0001 ####[facility] [address] [place], [address] Normal Normal [facility] Comment on above: Order Comment: SENT LABEL TO MS3 TO COLLECTCOLLECTOR TO SPECIFY Result Comment: JAYY ENT DISCHARGED Performed By: #### L 400.0001 ####[facility] [address] [place], [address] WBC Normal 0-5 [facility] Comment on above: Order Comment: SENT LABEL TO MS3 TO COLLECTCOLLECTOR TO SPECIFY Result Comment: JAYY ENT DISCHARGED Performed By: #### L 400.0001 ####[facility] [address] [place], [address] CNPTOUTREACHon 07-11-2024 CNPTOUTREACH Normal [facility] Absolute lymphocyte countOrd ered By: Nando Wiggins on 07-09-2024 Lymphocytes Auto (Unsp spec) [#/Vol] 1.88 10*3/uL 0.83-4.51 [facility] Automated lymphocyte count a s percentage of total leukocytesOrdered By: Nando Wiggins on 07-09-2024 Lymphocytes/100 WBC Auto (Unsp spec) 12.0 % Low 19-41 [facility] Basophil percentageOrdered B y: Nando Wiggins on 07-09-2024 Basophils/100 WBC (Bld) 0.2 % 0-1 [facility] Carbon dioxide measurementOr dered By: Nando Wiggins on 07-09-2024 CO2 [Moles/Vol] 29.0 mmol/L 21.0-32.0 [facility] Chloride measurementOrdered By: Nando Wiggins on 07-09-2024 Chloride [Moles/Vol] 89 mmol/L Low 98-107 [facility] Eosinophil percentageOrdered By: Nando Wiggins on 07-09-2024 Eosinophils/100 WBC (Bld) 0.4 % 0-5 [facility] Erythrocyte distribution wid th ratioOrdered By: Nando Wiggins on 07-09-2024 Erythrocyte distribution width (RBC) [Ratio] 16.9 % High 11.6-14.6 [facility] Erythrocyte distribution wid th standard deviationOrdered By: Nando Wiggins on 07-09-2024 Erythrocyte distribution width (RBC) [Ratio] 57.9 fl High 35.1-43.9 [facility] Glomerular filtration rate ( GFR) estimationOrdered By: Nando Wiggins on 07-09-2024 GFR/1.73 sq M.predicted among non-blacks MDRD (S/P/Bld) [Vol rate/Area] 11 mL/min/{1.73_m2} Low >60 [facility] Glucose measurementOrdered B y: Nando Wiggins on 07-09-2024 Glucose [Mass/Vol] 131 mg/dL High 74-106 [facility] Hematocrit Auto (Bld) [Volum e fraction]Ordered By: Nando Wiggins on 07-09-2024 Hematocrit (Bld) [Volume fraction] 26.0 % Low 40-54 [facility] Hemoglobin measurementOrdere d By: Nando Wiggins on 07-09-2024 Hemoglobin (Bld) [Mass/Vol] 7.7 g/dL Low 13.0-16.5 [facility] Immature granulocytes/100 WB C Auto (Bld)Ordered By: Kathiebiancalilian Meeklakshmidesiree on 07-09-2024 Immature granulocytes/100 WBC (Bld) 0.600 % 0.0-0.9 [facility] MCV (mean corpuscular volume ) determinationOrdered By: Kathiebiancalilian Meeklakshmidesiree on 07-09-2024 MCV (RBC) [Entitic vol] 94.9 fL High 80-94 [facility] Mean corpuscular hemoglobin (MCH) determinationOrdered By: Kathiefili Edenlakshmidesiree on 07-09-2024 MCH (RBC) [Entitic mass] 28.1 pg 27.0-32.0 [facility] Monocyte percentageOrdered B y: Nando Wiggins on 07-09-2024 Monocytes/100 WBC (Bld) 7.0 % 0-10 [facility] Neutrophil percentageOrdered By: Nando Wiggins on 07-09-2024 Neutrophils/100 WBC (Bld) 79.8 % High 47-70 [facility] Platelet countOrdered By: Kathie Wiggins on 07-09-2024 Platelets (Bld) [#/Vol] 258 10*3/uL 150-450 [facility] Potassium measurementOrdered By: Kathiebiancalilian Meeklakshmidesiree on 07-09-2024 Potassium [Moles/Vol] 3.6 mmol/L 3.5-5.1 [facility] RBC Auto (Bld) [#/Vol]Ordere d By: Nando Wiggins on 07-09-2024 RBC (Bld) [#/Vol] 2.74 10*6/uL Low 4.6-6.2 [facility] Serum or plasma calcium lilli urement (mass/volume)Ordered By: Kathiebiancasrinathwolf Edenlaskhmidesiree on 07-09-2024 Calcium [Mass/Vol] 9.2 mg/dL 8.5-10.1 [facility] Serum or plasma creatinine m easurement (mass/volume)Ordered By: Nando Wiggins on 07-09-2024 Creatinine [Mass/Vol] 5.11 mg/dL High 0.70-1.30 [facility] Serum or plasma urea nitroge n measurement (mass/volume)Ordered By: Nando Wiggins on 07-09-2024 Urea nitrogen [Mass/Vol] 61 mg/dL High 7-18 [facility] Sodium levelOrdered By: Deb quintana Meeklakshmidesiree on 07-09-2024 Sodium [Moles/Vol] 129 mmol/L Low 136-145 [facility] White blood cell (WBC) count Ordered By: Nando Wiggins on 07-09-2024 WBC (Bld) [#/Vol] 15.7 10*3/uL High 4.4-11.0 [facility] 12 Lead EKGon 07-07-[address] [facility] Absolute lymphocyte countOrd ered By: Alicia Loo on 07-07-2024 Lymphocytes Auto (Unsp spec) [#/Vol] 1.18 10*3/uL 0.83-4.51 [facility] Automated lymphocyte count a s percentage of total leukocytesOrdered By: Alicia Loo on 07-07-2024 Lymphocytes/100 WBC Auto (Unsp spec) 13.1 % Low 19-41 [facility] Basic Metabolic Profile (BMP )on 07-07-2024 BUN/CRE 11.0 RATIO Normal 10-20 [facility] Comment on above: Order Comment: 'TROP ' Serial specimen #1, #2 or #3: 1 Performed By: #### L 501.4020, L500.2500, L100.0100 ####[facility] [address] [place], [place], [id number] [place],Total 8.5 mg/dL Normal 8.5-10.1 [facility] Comment on above: Order Comment: 'TROP ' Serial specimen #1, #2 or #3: 1 Performed By: #### L 501.4020, L500.2500, L100.0100 ####[facility] [address] [place], [address] Chloride [Moles/Vol] 91 mmol/L Low 98-107 [facility] Comment on above: Order Comment: 'TROP ' Serial specimen #1, #2 or #3: 1 Performed By: #### L 501.4020, L500.2500, L100.0100 ####[facility] [address] [place], [address] CO2 [Moles/Vol] 33.0 mmol/L High 21.0-32.0 [facility] Comment on above: Order Comment: 'TROP ' Serial specimen #1, #2 or #3: 1 Performed By: #### L 501.4020, L500.2500, L100.0100 ####[facility] [address] [place], [address] Creatinine [Mass/Vol] 3.01 mg/dL High 0.70-1.30 [facility] Comment on above: Order Comment: 'TROP ' Serial specimen #1, #2 or #3: 1 Result Comment: The validity of the calculated GFR GFRAA in patients over70 years has not been determined. Clinical correlation isessential. Performed By: #### L 501.4020, L500.2500, L100.0100 ####[facility] [address] [place], [address] ECRCL 19.28 ml/min Normal [facility] Comment on above: Order Comment: 'TROP ' Serial specimen #1, #2 or #3: 1 Performed By: #### L 501.4020, L500.2500, L100.0100 ####[facility] [address] [place], [address] EST GFR - AA 26 mL/min Low >60 [facility] Comment on above: Order Comment: 'TROP ' Serial specimen #1, #2 or #3: 1 Result Comment: Afri can Angolan GFR Calc Performed By: #### L 501.4020, L500.2500, L100.0100 ####[facility] [address] [place], [address] GAP 8 Normal 5-15 [facility] Comment on above: Order Comment: 'TROP ' Serial specimen #1, #2 or #3: 1 Performed By: #### L 501.4020, L500.2500, L100.0100 ####[facility] [address] [place], [address] GFR/1.73 sq M.predicted among non-blacks MDRD (S/P/Bld) [Vol rate/Area] 21 mL/min/{1.73_m2} Low >60 [facility] Comment on above: Order Comment: 'TROP ' Serial specimen #1, #2 or #3: 1 Result Comment: Non- GFR Calc Performed By: #### L 501.4020, L500.2500, L100.0100 ####[facility] [address] [place], [address] Glucose [Mass/Vol] 157 mg/dL High 74-106 [facility] Comment on above: Order Comment: 'TROP ' Serial specimen #1, #2 or #3: 1 Result Comment: Fast ing Glucose result greater than or equal to 126 mg/dLsuggests DIABETES MELLITUS per A.D.A. criteria. Performed By: #### L 501.4020, L500.2500, L100.0100 ####[facility] [address] [place], [address] Potassium [Moles/Vol] 3.4 mmol/L Low 3.5-5.1 [facility] Comment on above: Order Comment: 'TROP ' Serial specimen #1, #2 or #3: 1 Performed By: #### L 501.4020, L500.2500, L100.0100 ####[facility] [address] [place], [address] Sodium [Moles/Vol] 132 mmol/L Low 136-145 [facility] Comment on above: Order Comment: 'TROP ' Serial specimen #1, #2 or #3: 1 Performed By: #### L 501.4020, L500.2500, L100.0100 ####[facility] [address] [place], [address] Urea nitrogen [Mass/Vol] 33 mg/dL High 7-18 [facility] Comment on above: Order Comment: 'TROP ' Serial specimen #1, #2 or #3: 1 Performed By: #### L 501.4020, L500.2500, L100.0100 ####[facility] [address] [place], [address] Basophil percentageOrdered B y: Remus Ungur on 07-07-2024 Basophils/100 WBC (Bld) 0.3 % 0-1 [facility] Bilirubin Test strip Ql (U)O rdered By: Remus Ungur on 07-07-2024 Bilirubin Ql (U) 1 mg/dL High Negative [facility] Brain/Head without Contrasto n 07-07-2024 Brain/Head without Contrast Normal [facility] CBC W/Diff, Automatedon 06-23 Absolute Lymph 1.18 X10 3/uL Normal 0.83-4.51 [facility] Comment on above: Performed By: #### L 501.4020, L500.2500, L100.0100 ####[facility] [address] [place], [address] Absolute Neut 6.7 X10 3/uL Normal 2.0-7.7 [facility] Comment on above: Performed By: #### L 501.4020, L500.2500, L100.0100 ####[facility] [address] [place], [address] Basophils/100 WBC (Bld) 0.3 % Normal 0-1 [facility] Comment on above: Performed By: #### L 501.4020, L500.2500, L100.0100 ####[facility] [address] [place], [address] Eosinophils/100 WBC (Bld) 0.1 % Normal 0-5 [facility] Comment on above: Performed By: #### L 501.4020, L500.2500, L100.0100 ####[facility] [address] [place], [address] Erythrocyte distribution width (RBC) [Ratio] 16.6 % High 11.6-14.6 [facility] Comment on above: Performed By: #### L 501.4020, L500.2500, L100.0100 ####[facility] [address] [place], [address] Hematocrit (Bld) [Volume fraction] 27.0 % Low 40-54 [facility] Comment on above: Performed By: #### L 501.4020, L500.2500, L100.0100 ####[facility] [address] [place], [address] Hemoglobin (Bld) [Mass/Vol] 8.1 g/dL Low 13.0-16.5 [facility] Comment on above: Performed By: #### L 501.4020, L500.2500, L100.0100 ####[facility] [address] [place], [address] IG% 0.300 Normal 0.0-0.9 [facility] Comment on above: Result Comment: IG% - Immature Granulocytes (promyelocytes, myelocytes andmetamyelocytes) > 1% indicates that a LEFT SHIFT is Present. Performed By: #### L 501.4020, L500.2500, L100.0100 ####[facility] [address] [place], [address] Lymphocytes/100 WBC (Bld) 13.1 % Low 19-41 [facility] Comment on above: Performed By: #### L 501.4020, L500.2500, L100.0100 ####[facility] [address] [place], [address] MCH (RBC) [Entitic mass] 28.4 pg Normal 27.0-32.0 [facility] Comment on above: Performed By: #### L 501.4020, L500.2500, L100.0100 ####[facility] [address] [place], [address] MCHC (RBC) [Mass/Vol] 30.0 g/dL Low 32-36 [facility] Comment on above: Performed By: #### L 501.4020, L500.2500, L100.0100 ####[facility] [address] [place], [address] MCV (RBC) [Entitic vol] 94.7 fL High 80-94 [facility] Comment on above: Performed By: #### L 501.4020, L500.2500, L100.0100 ####[facility] [address] [place], [address] Monocytes/100 WBC (Bld) 11.4 % High 0-10 [facility] Comment on above: Performed By: #### L 501.4020, L500.2500, L100.0100 ####[facility] [address] [place], [address] Neutrophils/100 WBC (Bld) 74.8 % High 47-70 [facility] Comment on above: Performed By: #### L 501.4020, L500.2500, L100.0100 ####[facility] [address] [place], [address] Nucleated RBC (Bld) [#/Vol] 0 10*3/uL Normal 0-5 [facility] Comment on above: Performed By: #### L 501.4020, L500.2500, L100.0100 ####[facility] [address] [place], [address] Platelet mean volume (Bld) [Entitic vol] 10.7 fL Normal 6.2-12.0 [facility] Comment on above: Performed By: #### L 501.4020, L500.2500, L100.0100 ####[facility] [address] [place], [address] Platelets (Bld) [#/Vol] 211 10*3/uL Normal 150-450 [facility] Comment on above: Performed By: #### L 501.4020, L500.2500, L100.0100 ####[facility] [address] [place], [address] RBC (Bld) [#/Vol] 2.85 10*6/uL Low 4.6-6.2 [facility] Comment on above: Performed By: #### L 501.4020, L500.2500, L100.0100 ####[facility] [address] [place], [address] RDW SD 56.3 fl High 35.1-43.9 [facility] Comment on above: Performed By: #### L 501.4020, L500.2500, L100.0100 ####[facility] [address] [place], [address] WBC (Bld) [#/Vol] 9.0 10*3/uL Normal 4.4-11.0 [facility] Comment on above: Performed By: #### L 501.4020, L500.2500, L100.0100 ####[facility] [address] [place], [address] Carbon dioxide measurementOr dered By: Alicia Loo on 07-07-2024 CO2 [Moles/Vol] 33.0 mmol/L High 21.0-32.0 [facility] Chest 1 View (Portable)on Chest 1 View (Portable) Normal [facility] Chloride measurementOrdered By: Alicia Loo on 07-07-2024 Chloride [Moles/Vol] 91 mmol/L Low 98-107 [facility] Emergency Department Summary on 07-07-2024 [address] Normal [facility] Eosinophil percentageOrdered By: Alicia Loo on 07-07-2024 Eosinophils/100 WBC (Bld) 0.1 % 0-5 [facility] Erythrocyte distribution wid th ratioOrdered By: Alicia Loo on 07-07-2024 Erythrocyte distribution width (RBC) [Ratio] 16.6 % High 11.6-14.6 [facility] Erythrocyte distribution wid th standard deviationOrdered By: Alicia Loo on 07-07-2024 Erythrocyte distribution width (RBC) [Ratio] 56.3 fl High 35.1-43.9 [facility] Glomerular filtration rate ( GFR) estimationOrdered By: Alicia Loo on 07-07-2024 GFR/1.73 sq M.predicted among non-blacks MDRD (S/P/Bld) [Vol rate/Area] 21 mL/min/{1.73_m2} Low >60 [facility] Glucose measurementOrdered B y: Alicia Loo on 07-07-2024 Glucose [Mass/Vol] 157 mg/dL High 74-106 [facility] Hematocrit Auto (Bld) [Volum e fraction]Ordered By: Alicia Loo on 07-07-2024 Hematocrit (Bld) [Volume fraction] 27.0 % Low 40-54 [facility] Hemoglobin measurementOrdere d By: Alicia Loo on 07-07-2024 Hemoglobin (Bld) [Mass/Vol] 8.1 g/dL Low 13.0-16.5 [facility] Immature granulocytes/100 WB C Auto (Bld)Ordered By: Alicia Loo on 07-07-2024 Immature granulocytes/100 WBC (Bld) 0.300 % 0.0-0.9 [facility] Influenza virus A and B and SARS-CoV-2 (COVID-19) and Respiratory syncytial virus RNAOrdered By: Alicia Loo on 07-07-2024 SARS-CoV-2 (COVID-19) RNA EZEKIEL+probe Ql (Unsp spec) [facility] Ketones Test strip Ql (U)Ord ered By: Kaeus Eze on 07-07-2024 Ketones Ql (U) 5 mg/dl High Negative [facility] L501.4020on 07-07-2024 TROPONIN-I HS 62 pg/mL Normal 3.0-78.0 [facility] Comment on above: Order Comment: 'TROP ' Serial specimen #1, #2 or #3: 1 Result Comment: Plea se Note: New Test Units and Gender Specific Reference Ranges. For more information see Policy Stat Procedure [place] High Sensitivity Troponin (TNIH) and attachments. Performed By: #### L 501.4020, L500.2500, L100.0100 ####[facility] [address] [place], [address] M100.678on 07-07-2024 M100.678 Pending SARS-CoV-2 (COVID 19) Negative INFLUENZA A Negative INFLUENZA B Negative RSV PCR Negative Normal [facility] Comment on above: Performed By: #### M 100.678 ####[facility] [address] [place], [address] MCV (mean corpuscular volume ) determinationOrdered By: Alicia Loo on 07-07-2024 MCV (RBC) [Entitic vol] 94.7 fL High 80-94 [facility] Mean corpuscular hemoglobin (MCH) determinationOrdered By: Alicia Loo on 07-07-2024 MCH (RBC) [Entitic mass] 28.4 pg 27.0-32.0 [facility] Monocyte percentageOrdered B y: Remus Ungvaughn on 07-07-2024 Monocytes/100 WBC (Bld) 11.4 % High 0-10 [facility] Mucus LM Ql (Urine sed)Order ed By: Remus Eze on 07-07-2024 Mucus Ql (Urine sed) 0 SEEN /hpf [facility] Neutrophil percentageOrdered By: Remus Eze on 07-07-2024 Neutrophils/100 WBC (Bld) 74.8 % High 47-70 [facility] Nitrite Test strip Ql (U)Ord ered By: Alicia Loo on 07-07-2024 Nitrite Ql (U) Negative Negative [facility] Platelet countOrdered By: Chucky Loo on 07-07-2024 Platelets (Bld) [#/Vol] 211 10*3/uL 150-450 [facility] Potassium measurementOrdered By: Alicia Loo on 07-07-2024 Potassium [Moles/Vol] 3.4 mmol/L Low 3.5-5.1 [facility] Protein Test strip Ql (U)Ord ered By: Alicia Loo on 07-07-2024 Protein Ql (U) 100 mg/dl High Negative [facility] RBC Auto (Bld) [#/Vol]Ordere d By: Alicia Loo on 07-07-2024 RBC (Bld) [#/Vol] 2.85 10*6/uL Low 4.6-6.2 [facility] Serum or plasma calcium lilli urement (mass/volume)Ordered By: Alicia Loo on 07-07-2024 Calcium [Mass/Vol] 8.5 mg/dL 8.5-10.1 [facility] Serum or plasma creatinine m easurement (mass/volume)Ordered By: Alicia Loo on 07-07-2024 Creatinine [Mass/Vol] 3.01 mg/dL High 0.70-1.30 [facility] Serum or plasma urea nitroge n measurement (mass/volume)Ordered By: Alicia Loo on 07-07-2024 Urea nitrogen [Mass/Vol] 33 mg/dL High 7-18 [facility] Sodium levelOrdered By: Michael Loo on 07-07-2024 Sodium [Moles/Vol] 132 mmol/L Low 136-145 [facility] Squamous epithelial cells de tection in urine sediment by light microscopyOrdered By: Alicia Loo on 07-07-2024 Epithelial cells.squamous LM Ql (Urine sed) 0 SEEN /hpf 0-5 [facility] Troponin IOrdered By: Alicia Loo on 07-07-2024 Troponin I 62 pg/mL 3.0-78.0 [facility] Urinalysis, Completeon 07-07 RBC 0 SEEN Normal 0-5 [facility] Comment on above: Order Comment: COLOR OF URINE MAY AFFECT DIPSTICK RESULTS.CLEAN CATCH Performed By: #### L 400.0001 ####[facility] [address] [place], [address] WBC 0-5 SEEN Normal 0-5 [facility] Comment on above: Order Comment: COLOR OF URINE MAY AFFECT DIPSTICK RESULTS.CLEAN CATCH Performed By: #### L 400.0001 ####[facility] [address] [place], [address] BACTERIA 0 SEEN Normal None Seen [facility] Comment on above: Order Comment: COLOR OF URINE MAY AFFECT DIPSTICK RESULTS.CLEAN CATCH Performed By: #### L 400.0001 ####[facility] [address] [place], [address] EPI,SQUAMOUS 0 SEEN Normal 0-5 [facility] Comment on above: Order Comment: COLOR OF URINE MAY AFFECT DIPSTICK RESULTS.CLEAN CATCH Performed By: #### L 400.0001 ####[facility] [address] [place], [address] Mucus Ql (Urine sed) 0 SEEN Normal [facility] Comment on above: Order Comment: COLOR OF URINE MAY AFFECT DIPSTICK RESULTS.CLEAN CATCH Performed By: #### L 400.0001 ####[facility] [address] [place], [address] Urine clarityOrdered By: Kae Loo on 07-07-2024 Clarity (U) Clear Clear [facility] Urine color determinationOrd ered By: Alicia Loo on 07-07-2024 Color (U) Lilia Yellow [facility] Urine glucose detectionOrder ed By: Alicia Loo on 07-07-2024 Glucose Ql (U) 50 mg/dl High Normal [facility] Urine leukocyte esterase det ection by dipstickOrdered By: Alicia Loo on 07-07-2024 Leukocyte esterase Test strip Ql (U) 25 /ul High Negative [facility] Urine pHOrdered By: Alicia minar on 07-07-2024 pH (U) 5.0 [pH] 5.0 - 8.0 [facility] Urine sediment bacteria coun t by microscopy (number/high power field)Ordered By: Alicia Loo on 07-07-2024 Bacteria LM.HPF (Urine sed) [#/Area] 0 /[HPF] None Seen [facility] Urine specific gravity measu rementOrdered By: Cent[place]us Loo on 07-07-2024 Specific gravity (U) [Rel density] 1.015 1.002-1.030 [facility] Urine urobilinogen measureme ntOrdered By: [place]us Loo on 07-07-2024 Urobilinogen Ql (U) Normal mg/dl Normal [facility] White blood cell (WBC) count Ordered By: Cent[place]us Loo on 07-07-2024 WBC (Bld) [#/Vol] 9.0 10*3/uL 4.4-11.0 [facility] White blood cell countOrdere d By: Alicia Loo on 07-07-2024 White blood cell count 0-5 SEEN /hpf 0-5 [facility] Bedside Glucoseon 07-04-2024 FINGERSTICK GLU 114 mg/dL High 74-106 [facility] Comment on above: Result Comment: FANG VAZQUEZ OF PATIENT CARE PER NURSING PROTOCOL Performed By: #### L 501.080 ####[facility] [address] [place], [address] [facility] deOrdered By: Des Ruelas on 07-04-2024 Glucose [Mass/Vol] 114 mg/dL High 74-106 [facility] Absolute lymphocyte countOrd ered By: Eric Franklin on 07-03-2024 Lymphocytes Auto (Unsp spec) [#/Vol] 1.08 10*3/uL 0.83-4.51 [facility] Automated blood erythrocyte countOrdered By: Eric Franklin on 07-03-2024 RBC (Bld) [#/Vol] 2.75 10*6/uL Low 4.6-6.2 [facility] Comment on above: Performed By: #### L 500.4050, L100.0100 ####[facility] [address] [place], [address] Automated blood hematocrit ( percentage)Ordered By: Eric Franklin on 07-03-2024 Hematocrit (Bld) [Volume fraction] 25.7 % Low 40-54 [facility] Comment on above: Performed By: #### L 500.4050, L100.0100 ####[facility] [address] [place], [address] Automated lymphocyte count a s percentage of total leukocytesOrdered By: Eric Franklin on 07-03-2024 Lymphocytes/100 WBC Auto (Unsp spec) 12.6 % Low 19-41 [facility] Basophil percentageOrdered B y: Eric Franklin on 07-03-2024 Basophils/100 WBC (Bld) 0.2 % Normal 0-1 [facility] Comment on above: Performed By: #### L 500.4050, L100.0100 ####[facility] [address] [place], [address] Bilirubin, totalOrdered By: Eric Franklin on 07-03-2024 Bilirubin [Mass/Vol] 0.60 mg/dL Normal 0.20-1.00 [facility] Comment on above: Result Comment: For patients on eltrombopag therapy, use of Dimension [place] TBIL is not recommended. Performed By: #### L 500.4050, L100.0100 ####[facility] [address] [place], [address] CBC W/Diff, Automatedon 06-23 Absolute Lymph 1.08 X10 3/uL Normal 0.83-4.51 [facility] Comment on above: Performed By: #### L 500.4050, L100.0100 ####[facility] [address] [place], [address] Absolute Neut 6.2 X10 3/uL Normal 2.0-7.7 [facility] Comment on above: Performed By: #### L 500.4050, L100.0100 ####[facility] [address] [place], [address] IG% 0.700 Normal 0.0-0.9 [facility] Comment on above: Result Comment: IG% - Immature Granulocytes (promyelocytes, myelocytes andmetamyelocytes) > 1% indicates that a LEFT SHIFT is Present. Performed By: #### L 500.4050, L100.0100 ####[facility] [address] [place], [address] Lymphocytes/100 WBC (Bld) 12.6 % Low 19-41 [facility] Comment on above: Performed By: #### L 500.4050, L100.0100 ####[facility] [address] [place], [address] MCHC (RBC) [Mass/Vol] 31.5 g/dL Low 32-36 [facility] Comment on above: Performed By: #### L 500.4050, L100.0100 ####[facility] [address] [place], [address] Nucleated RBC (Bld) [#/Vol] 0 10*3/uL Normal 0-5 [facility] Comment on above: Performed By: #### L 500.4050, L100.0100 ####[facility] [address] [place], [address] Platelet mean volume (Bld) [Entitic vol] 11.1 fL Normal 6.2-12.0 [facility] Comment on above: Performed By: #### L 500.4050, L100.0100 ####[facility] [address] [place], [address] RDW SD 56.7 fl High 35.1-43.9 [facility] Comment on above: Performed By: #### L 500.4050, L100.0100 ####[facility] [address] [place], [address] Carbon dioxide measurementOr dered By: Eric Franklin on 07-03-2024 CO2 [Moles/Vol] 27.0 mmol/L Normal 21.0-32.0 [facility] Comment on above: Performed By: #### L 500.4050, L100.0100 ####[facility] [address] [place], [address] Chloride measurementOrdered By: Eric Franklin on 07-03-2024 Chloride [Moles/Vol] 96 mmol/L Low 98-107 [facility] Comment on above: Performed By: #### L 500.4050, L100.0100 ####[facility] [address] [place], [address] Comprehensive Metabolic Prof ilon 07-03-2024 Albumin/Globulin [Mass ratio] 0.5 {ratio} Low 0.9-2.4 [facility] Comment on above: Performed By: #### L 500.4050, L100.0100 ####[facility] [address] [place], [address] ALK P 63 U/L Normal 45-117 [facility] Comment on above: Performed By: #### L 500.4050, L100.0100 ####[facility] [address] [place], [address] AST [Catalytic activity/Vol] 26 U/L Normal 15-37 [facility] Comment on above: Result Comment: Mode rate Hemolysis, Result may be falsely increased. Performed By: #### L 500.4050, L100.0100 ####[facility] [address] [place], [address] BUN/CRE 12.2 RATIO Normal 10-20 [facility] Comment on above: Performed By: #### L 500.4050, L100.0100 ####[facility] [address] [place], [address] CA,Total 8.1 mg/dL Low 8.5-10.1 [facility] Comment on above: Performed By: #### L 500.4050, L100.0100 ####[facility] [address] [place], [address] ECRCL 20.19 ml/min Normal [facility] Comment on above: Performed By: #### L 500.4050, L100.0100 ####[facility] [address] [place], [address] EST GFR - AA 25 mL/min Low >60 [facility] Comment on above: Result Comment: Afri can [place]olan GFR Calc Performed By: #### L 500.4050, L100.0100 ####[facility] [address] [place], [address] GAP 11 Normal 5-15 [facility] Comment on above: Performed By: #### L 500.4050, L100.0100 ####[facility] [address] [place], [address] T PROT 7.1 g/dL Normal 6.4-8.2 [facility] Comment on above: Performed By: #### L 500.4050, L100.0100 ####[facility] [address] [place], [address] Emergency Department Summary on 07-03-20[address] Normal [facility] Eosinophil percentageOrdered By: Eric Franklin on 07-03-2024 Eosinophils/100 WBC (Bld) 0.3 % Normal 0-5 [facility] Comment on above: Performed By: #### L 500.4050, L100.0100 ####[facility] [address] [place], [address] Erythrocyte distribution wid th ratioOrdered By: Eric Franklin on 07-03-2024 Erythrocyte distribution width (RBC) [Ratio] 17.2 % High 11.6-14.6 [facility] Comment on above: Performed By: #### L 500.4050, L100.0100 ####[facility] [address] [place], [address] Erythrocyte distribution wid th standard deviationOrdered By: Eric Franklin on 07-03-2024 Erythrocyte distribution width (RBC) [Ratio] 56.7 fl High 35.1-43.9 [facility] Glomerular filtration rate ( GFR) estimationOrdered By: Eric Franklin on 07-03-2024 GFR/1.73 sq M.predicted among non-blacks MDRD (S/P/Bld) [Vol rate/Area] 21 mL/min/{1.73_m2} Low >60 [facility] Comment on above: Result Comment: Non- GFR Calc Performed By: #### L 500.4050, L100.0100 ####[facility] [address] [place], [address] Glucose measurementOrdered B y: Eric Franklin on 07-03-2024 Glucose [Mass/Vol] 161 mg/dL High 74-106 [facility] Comment on above: Result Comment: Fast ing Glucose result greater than or equal to 126 mg/dLsuggests DIABETES MELLITUS per A.D.A. criteria. Performed By: #### L 500.4050, L100.0100 ####[facility] [address] [place], [address] Hemoglobin measurementOrdere d By: Eric Franklin on 07-03-2024 Hemoglobin (Bld) [Mass/Vol] 8.1 g/dL Low 13.0-16.5 [facility] Comment on above: Performed By: #### L 500.4050, L100.0100 ####[facility] [address] [place], [address] Immature granulocytes/100 WB C Auto (Bld)Ordered By: Eric Franklin on 07-03-2024 Immature granulocytes/100 WBC (Bld) 0.700 % 0.0-0.9 [facility] MCV (mean corpuscular volume ) determinationOrdered By: Eric Franklin on 07-03-2024 MCV (RBC) [Entitic vol] 93.5 fL Normal 80-94 [facility] Comment on above: Performed By: #### L 500.4050, L100.0100 ####[facility] [address] [place], [address] Mean corpuscular hemoglobin (MCH) determinationOrdered By: Eric Franklin on 07-03-2024 MCH (RBC) [Entitic mass] 29.5 pg Normal 27.0-32.0 [facility] Comment on above: Performed By: #### L 500.4050, L100.0100 ####[facility] [address] [place], [address] Monocyte percentageOrdered B y: Eric Franklin on 07-03-2024 Monocytes/100 WBC (Bld) 14.5 % High 0-10 [facility] Comment on above: Performed By: #### L 500.4050, L100.0100 ####[facility] [address] [place], [address] Neutrophil percentageOrdered By: Eric Franklin on 07-03-2024 Neutrophils/100 WBC (Bld) 71.7 % High 47-70 [facility] Comment on above: Performed By: #### L 500.4050, L100.0100 ####[facility] [address] [place], [address] No Panel InformationOrdered By: Eric Franklin on 07-03-2024 26 U/L 15-37 [facility] Platelet countOrdered By: Ug jorge Franklin on 07-03-2024 Platelets (Bld) [#/Vol] 194 10*3/uL Normal 150-450 [facility] Comment on above: Performed By: #### L 500.4050, L100.0100 ####[facility] [address] [place], [address] Potassium measurementOrdered By: Eric Franklin on 07-03-2024 Potassium [Moles/Vol] 4.2 mmol/L Normal 3.5-5.1 [facility] Comment on above: Result Comment: Mode rate Hemolysis, Result may be falsely increased. Performed By: #### L 500.4050, L100.0100 ####[facility] [address] [place], [address] Serum globulin measurementOr dered By: Eric Franklin on 07-03-2024 Globulin (S) [Mass/Vol] 4.7 g/dL High 2.2-4.2 [facility] Comment on above: Performed By: #### L 500.4050, L100.0100 ####[facility] [address] [place], [address] Serum or plasma alanine hawkins otransferase (ALT) measurementOrdered By: Eric Franklin on 07-03-2024 ALT [Catalytic activity/Vol] 13 U/L Low 16-61 [facility] Comment on above: Performed By: #### L 500.4050, L100.0100 ####[facility] [address] [place], [address] Serum or plasma albumin lilli urement (mass/volume)Ordered By: Eric Franklin on 07-03-2024 Albumin [Mass/Vol] 2.4 g/dL Low 3.2-5.0 [facility] Comment on above: Performed By: #### L 500.4050, L100.0100 ####[facility] [address] [place], [address] Serum or plasma alkaline penelope sphatase measurementOrdered By: Eric Franklin on 07-03-2024 ALP [Catalytic activity/Vol] 63 U/L 45-117 [facility] Serum or plasma calcium lilli urement (mass/volume)Ordered By: Eric Franklin on 07-03-2024 Calcium [Mass/Vol] 8.1 mg/dL Low 8.5-10.1 [facility] Serum or plasma creatinine m easurement (mass/volume)Ordered By: Eric Franklin on 07-03-2024 Creatinine [Mass/Vol] 3.04 mg/dL High 0.70-1.30 [facility] Comment on above: Result Comment: The validity of the calculated GFR GFRAA in patients over70 years has not been determined. Clinical correlation isessential. Performed By: #### L 500.4050, L100.0100 ####[facility] [address] [place], [address] Serum or plasma urea nitroge n measurement (mass/volume)Ordered By: Ericjorge Franklin on 07-03-2024 Urea nitrogen [Mass/Vol] 37 mg/dL High 7-18 [facility] Comment on above: Performed By: #### L 500.4050, L100.0100 ####[facility] [address] [place], [address] Sodium levelOrdered By: Eric Franklin on 07-03-2024 Sodium [Moles/Vol] 134 mmol/L Low 136-145 [facility] Comment on above: Performed By: #### L 500.4050, L100.0100 ####[facility] [address] [place], [address] Total proteinOrdered By: Ericjorge Franklin on 07-03-2024 Protein [Mass/Vol] 7.1 g/dL 6.4-8.2 [facility] White blood cell (WBC) count Ordered By: Ericjorge Franklin on 07-03-2024 WBC (Bld) [#/Vol] 8.6 10*3/uL Normal 4.4-11.0 [facility] Comment on above: Performed By: #### L 500.4050, L100.0100 ####[facility] [address] [place], [address] 12 Lead EKGon 07-02-20[address] [facility] Absolute lymphocyte countOrd ered By: Nando Wiggins on 07-02-2024 Lymphocytes Auto (Unsp spec) [#/Vol] 1.88 10*3/uL 0.83-4.51 [facility] Automated lymphocyte count a s percentage of total leukocytesOrdered By: Brianwolf Rosalie on 07-02-2024 Lymphocytes/100 WBC Auto (Unsp spec) 20.3 % 19-41 [facility] Basic Metabolic Profile (BMP )on 07-02-2024 BUN/CRE 18.1 RATIO Normal 10-20 [facility] Comment on above: Performed By: #### L 500.2500 ####[facility] [address] [place], [address] CA,Total 9.1 mg/dL Normal 8.5-10.1 [facility] Comment on above: Performed By: #### L 500.2500 ####[facility] [address] [place], [address] Chloride [Moles/Vol] 98 mmol/L Normal 98-107 [facility] Comment on above: Performed By: #### L 500.2500 ####[facility] [address] [place], [address] CO2 [Moles/Vol] 26.0 mmol/L Normal 21.0-32.0 [facility] Comment on above: Performed By: #### L 500.2500 ####[facility] [address] [place], [address] Creatinine [Mass/Vol] 4.63 mg/dL High 0.70-1.30 [facility] Comment on above: Result Comment: The validity of the calculated GFR GFRAA in patients over70 years has not been determined. Clinical correlation isessential. Performed By: #### L 500.2500 ####[facility] [address] [place], [address] ECRCL 12.30 ml/min Normal [facility] Comment on above: Performed By: #### L 500.2500 ####[facility] [address] [place], [address] EST GFR - AA 16 mL/min Low >60 [facility] Comment on above: Result Comment: Afri can Angolan GFR Calc Performed By: #### L 500.2500 ####[facility] [address] [place], [address] GAP 9 Normal 5-15 [facility] Comment on above: Performed By: #### L 500.2500 ####[facility] [address] [place], [address] GFR/1.73 sq M.predicted among non-blacks MDRD (S/P/Bld) [Vol rate/Area] 13 mL/min/{1.73_m2} Low >60 [facility] Comment on above: Result Comment: Non- GFR Calc Performed By: #### L 500.2500 ####[facility] [address] [place], [address] Glucose [Mass/Vol] 134 mg/dL High 74-106 [facility] Comment on above: Result Comment: Fast ing Glucose result greater than or equal to 126 mg/dLsuggests DIABETES MELLITUS per A.D.A. criteria. Performed By: #### L 500.2500 ####[facility] [address] [place], [address] Potassium [Moles/Vol] 4.3 mmol/L Normal 3.5-5.1 [facility] Comment on above: Performed By: #### L 500.2500 ####[facility] [address] [place], [address] Sodium [Moles/Vol] 133 mmol/L Low 136-145 [facility] Comment on above: Performed By: #### L 500.2500 ####[facility] [address] [place], [address] Urea nitrogen [Mass/Vol] 84 mg/dL High 7-18 [facility] Comment on above: Performed By: #### L 500.2500 ####[facility] [address] [place], [address] Basophil percentageOrdered B y: Nando Wiggins on 07-02-2024 Basophils/100 WBC (Bld) 0.3 % 0-1 [facility] Bedside Glucoseon 07-02-2024 FINGERSTICK GLU 230 mg/dL High 74-106 [facility] Comment on above: Result Comment: FANG VAZQUEZ OF PATIENT CARE PER NURSING PROTOCOL Performed By: #### L 501.080 ####[facility] [address] [place], [place], [address] Carbon dioxide measurementOr dered By: Fernando Oliveros on 07-02-2024 CO2 [Moles/Vol] 26.0 mmol/L 21.0-32.0 [facility] Carbon dioxide measurementOr dered By: Nando Wiggins on 07-02-2024 CO2 [Moles/Vol] 25.0 mmol/L 21.0-32.0 [facility] Chloride measurementOrdered By: Fernando Oliveros on 07-02-2024 Chloride [Moles/Vol] 98 mmol/L 98-107 [facility] Chloride measurementOrdered By: Nando Wiggins on 07-02-2024 Chloride [Moles/Vol] 96 mmol/L Low 98-107 [facility] Emergency Department Summary on 07-02-2024 [address] Normal [facility] Eosinophil percentageOrdered By: Nando Wiggins on 07-02-2024 Eosinophils/100 WBC (Bld) 3.0 % 0-5 [facility] Erythrocyte distribution wid th ratioOrdered By: Nando Wiggins on 07-02-2024 Erythrocyte distribution width (RBC) [Ratio] 17.2 % High 11.6-14.6 [facility] Erythrocyte distribution wid th standard deviationOrdered By: aNndo Wiggins on 07-02-2024 Erythrocyte distribution width (RBC) [Ratio] 58.0 fl High 35.1-43.9 [facility] Glomerular filtration rate ( GFR) estimationOrdered By: Fernando Oliveros on 07-02-2024 GFR/1.73 sq M.predicted among non-blacks MDRD (S/P/Bld) [Vol rate/Area] 13 mL/min/{1.73_m2} Low >60 [facility] Glomerular filtration rate ( GFR) estimationOrdered By: Nando Wiggins on 07-02-2024 GFR/1.73 sq M.predicted among non-blacks MDRD (S/P/Bld) [Vol rate/Area] 8 mL/min/{1.73_m2} Low >60 [facility] Glucose measurementOrdered B y: Fernando Oliveros on 07-02-2024 Glucose [Mass/Vol] 134 mg/dL High 74-106 [facility] Glucose measurementOrdered B y: Nando Wiggins on 07-02-2024 Glucose [Mass/Vol] 134 mg/dL High 74-106 [facility] Glucose measurement [facility] deOrdered By: Fernando Oliveros on 07-02-2024 Glucose [Mass/Vol] 230 mg/dL High 74-106 [facility] H AND P Exam - Hospitaliston 07-02-2024 H&P Exam - Hospitalist Normal [facility] Hematocrit Auto (Bld) [Volum e fraction]Ordered By: Nando Wiggins on 07-02-2024 Hematocrit (Bld) [Volume fraction] 25.7 % Low 40-54 [facility] Hemoglobin measurementOrdere d By: Nando Wiggins on 07-02-2024 Hemoglobin (Bld) [Mass/Vol] 8.0 g/dL Low 13.0-16.5 [facility] Immature granulocytes/100 WB C Auto (Bld)Ordered By: Nando Wiggins on 07-02-2024 Immature granulocytes/100 WBC (Bld) 0.500 % 0.0-0.9 [facility] MCV (mean corpuscular volume ) determinationOrdered By: Nando Wiggins on 07-02-2024 MCV (RBC) [Entitic vol] 96.3 fL High 80-94 [facility] Mean corpuscular hemoglobin (MCH) determinationOrdered By: Nando Wiggins on 07-02-2024 MCH (RBC) [Entitic mass] 30.0 pg 27.0-32.0 [facility] Monocyte percentageOrdered B y: Nando Wiggins on 07-02-2024 Monocytes/100 WBC (Bld) 11.7 % High 0-10 [facility] Neutrophil percentageOrdered By: Effili Wiggins on 07-02-2024 Neutrophils/100 WBC (Bld) 64.2 % 47-70 [facility] Platelet countOrdered By: Kathie biancalilian Wiggins on 07-02-2024 Platelets (Bld) [#/Vol] 198 10*3/uL 150-450 [facility] Potassium measurementOrdered By: Fernando Oliveros on 07-02-2024 Potassium [Moles/Vol] 4.3 mmol/L 3.5-5.1 [facility] Potassium measurementOrdered By: Nando Wiggins on 07-02-2024 Potassium [Moles/Vol] 5.9 mmol/L High 3.5-5.1 [facility] RBC Auto (Bld) [#/Vol]Ordere d By: Nando Wiggins on 07-02-2024 RBC (Bld) [#/Vol] 2.67 10*6/uL Low 4.6-6.2 [facility] Serum or plasma calcium lilli urement (mass/volume)Ordered By: Fernando Oliveros on 07-02-2024 Calcium [Mass/Vol] 9.1 mg/dL 8.5-10.1 [facility] Serum or plasma calcium lilli urement (mass/volume)Ordered By: Nando Wiggins on 07-02-2024 Calcium [Mass/Vol] 8.1 mg/dL Low 8.5-10.1 [facility] Serum or plasma creatinine m easurement (mass/volume)Ordered By: Fernando Oliveros on 07-02-2024 Creatinine [Mass/Vol] 4.63 mg/dL High 0.70-1.30 [facility] Serum or plasma creatinine m easurement (mass/volume)Ordered By: Nando Wiggins on 07-02-2024 Creatinine [Mass/Vol] 7.24 mg/dL High 0.70-1.30 [facility] Serum or plasma urea nitroge n measurement (mass/volume)Ordered By: Fernando Oliveros on 07-02-2024 Urea nitrogen [Mass/Vol] 84 mg/dL High 7-18 [facility] Serum or plasma urea nitroge n measurement (mass/volume)Ordered By: Nando Wiggins on 07-02-2024 Urea nitrogen [Mass/Vol] 126 mg/dL High 7-18 [facility] Sodium levelOrdered By: Fernando Oliveros on 07-02-2024 Sodium [Moles/Vol] 133 mmol/L Low 136-145 [facility] Sodium levelOrdered By: Dbe Wiggins on 07-02-2024 Sodium [Moles/Vol] 130 mmol/L Low 136-145 [facility] White blood cell (WBC) count Ordered By: Nando Wiggins on 07-02-2024 WBC (Bld) [#/Vol] 9.3 10*3/uL 4.4-11.0 [facility] Absolute lymphocyte countOrd ered By: Nando Wiggins on 06-25-2024 Lymphocytes Auto (Unsp spec) [#/Vol] 2.51 10*3/uL 0.83-4.51 [facility] Automated lymphocyte count a s percentage of total leukocytesOrdered By: Nando Wiggins on 06-25-2024 Lymphocytes/100 WBC Auto (Unsp spec) 29.7 % 19-41 [facility] Basophil percentageOrdered B y: Nando Wiggins on 06-25-2024 Basophils/100 WBC (Bld) 0.6 % 0-1 [facility] Carbon dioxide measurementOr dered By: Nando Wiggins on 06-25-2024 CO2 [Moles/Vol] 27.0 mmol/L 21.0-32.0 [facility] Chloride measurementOrdered By: Nando Wiggins on 06-25-2024 Chloride [Moles/Vol] 96 mmol/L Low 98-107 [facility] Eosinophil percentageOrdered By: Nando Wiggins on 06-25-2024 Eosinophils/100 WBC (Bld) 3.5 % 0-5 [facility] Erythrocyte distribution wid th ratioOrdered By: Nando Wiggins on 06-25-2024 Erythrocyte distribution width (RBC) [Ratio] 15.1 % High 11.6-14.6 [facility] Erythrocyte distribution wid th standard deviationOrdered By: Nando Wiggins on 06-25-2024 Erythrocyte distribution width (RBC) [Ratio] 52.1 fl High 35.1-43.9 [facility] Glomerular filtration rate ( GFR) estimationOrdered By: Nando Wiggins on 06-25-2024 GFR/1.73 sq M.predicted among non-blacks MDRD (S/P/Bld) [Vol rate/Area] 11 mL/min/{1.73_m2} Low >60 [facility] Glucose measurementOrdered B y: Nando Wiggins on 06-25-2024 Glucose [Mass/Vol] 136 mg/dL High 74-106 [facility] Hematocrit Auto (Bld) [Volum e fraction]Ordered By: Nando Wiggins 06-25-2024 Hematocrit (Bld) [Volume fraction] 27.3 % Low 40-54 [facility] Hemoglobin measurementOrdere d By: Nando Wiggins on 06-25-2024 Hemoglobin (Bld) [Mass/Vol] 8.0 g/dL Low 13.0-16.5 [facility] Immature granulocytes/100 WB C Auto (Bld)Ordered By: Nando Wiggins on 06-25-2024 Immature granulocytes/100 WBC (Bld) 1.500 % High 0.0-0.9 [facility] MCV (mean corpuscular volume ) determinationOrdered By: Nando Wiggins on 06-25-2024 MCV (RBC) [Entitic vol] 95.5 fL High 80-94 [facility] Mean corpuscular hemoglobin (MCH) determinationOrdered By: Nando Wiggins 06-25-2024 MCH (RBC) [Entitic mass] 28.0 pg 27.0-32.0 [facility] Monocyte percentageOrdered B y: Nando Wiggins on 06-25-2024 Monocytes/100 WBC (Bld) 8.3 % 0-10 [facility] Neutrophil percentageOrdered By: Nando Meeklakshmidesiree on 06-25-2024 Neutrophils/100 WBC (Bld) 56.4 % 47-70 [facility] Platelet countOrdered By: Kathie fili Meeklakshmidesiree on 06-25-2024 Platelets (Bld) [#/Vol] 210 10*3/uL 150-450 [facility] Potassium measurementOrdered By: Kathiebiancasrinathwolf Edenlakshmidesiree on 06-25-2024 Potassium [Moles/Vol] 4.2 mmol/L 3.5-5.1 [facility] RBC Auto (Bld) [#/Vol]Ordere d By: Nando Meekcheko on 06-25-2024 RBC (Bld) [#/Vol] 2.86 10*6/uL Low 4.6-6.2 [facility] Serum or plasma calcium lilli urement (mass/volume)Ordered By: Nando Edenlakshmidesiree on 06-25-2024 Calcium [Mass/Vol] 9.0 mg/dL 8.5-10.1 [facility] Serum or plasma creatinine m easurement (mass/volume)Ordered By: Kathiebiancasrinathwolf Edenlakshmidesiree on 06-25-2024 Creatinine [Mass/Vol] 5.23 mg/dL High 0.70-1.30 [facility] Serum or plasma urea nitroge n measurement (mass/volume)Ordered By: Nando Edenlakshmidesiree on 06-25-2024 Urea nitrogen [Mass/Vol] 72 mg/dL High 7-18 [facility] Sodium levelOrdered By: Deb lilian Meeklakshmidesiree on 06-25-2024 Sodium [Moles/Vol] 134 mmol/L Low 136-145 [facility] White blood cell (WBC) count Ordered By: Nando Edenlakshmidesiree on 06-25-2024 WBC (Bld) [#/Vol] 8.5 10*3/uL 4.4-11.0 [facility] MR/BMS.BVSon 06-20-2024 MR/BMS.BVS Normal [facility] Absolute lymphocyte countOrd ered By: Nando Wiggins on 06-18-2024 Lymphocytes Auto (Unsp spec) [#/Vol] 2.74 10*3/uL 0.83-4.51 [facility] Automated lymphocyte count a s percentage of total leukocytesOrdered By: Nando Wiggins on 06-18-2024 Lymphocytes/100 WBC Auto (Unsp spec) 31.0 % 19-41 [facility] Basophil percentageOrdered B y: Nando Wiggins on 06-18-2024 Basophils/100 WBC (Bld) 0.6 % 0-1 [facility] Carbon dioxide measurementOr dered By: Nando Wiggins on 06-18-2024 CO2 [Moles/Vol] 32.0 mmol/L 21.0-32.0 [facility] Chloride measurementOrdered By: Nando Wiggins on 06-18-2024 Chloride [Moles/Vol] 95 mmol/L Low 98-107 [facility] Eosinophil percentageOrdered By: Nando Wiggins on 06-18-2024 Eosinophils/100 WBC (Bld) 3.1 % 0-5 [facility] Erythrocyte distribution wid th ratioOrdered By: Nando Wiggins on 06-18-2024 Erythrocyte distribution width (RBC) [Ratio] 14.6 % 11.6-14.6 [facility] Erythrocyte distribution wid th standard deviationOrdered By: Nando Wiggins on 06-18-2024 Erythrocyte distribution width (RBC) [Ratio] 50.6 fl High 35.1-43.9 [facility] Glomerular filtration rate ( GFR) estimationOrdered By: Nando Wiggins on 06-18-2024 GFR/1.73 sq M.predicted among non-blacks MDRD (S/P/Bld) [Vol rate/Area] 12 mL/min/{1.73_m2} Low >60 [facility] Glucose measurementOrdered B y: Nando Wiggins on 06-18-2024 Glucose [Mass/Vol] 81 mg/dL 74-106 [facility] Hematocrit Auto (Bld) [Volum e fraction]Ordered By: Nando Wiggins on 06-18-2024 Hematocrit (Bld) [Volume fraction] 28.6 % Low 40-54 [facility] Hemoglobin measurementOrdere d By: Nando Wiggins on 06-18-2024 Hemoglobin (Bld) [Mass/Vol] 8.4 g/dL Low 13.0-16.5 [facility] Immature granulocytes/100 WB C Auto (Bld)Ordered By: Nando Wiggins on 06-18-2024 Immature granulocytes/100 WBC (Bld) 0.300 % 0.0-0.9 [facility] MCV (mean corpuscular volume ) determinationOrdered By: Nando Wiggins on 06-18-2024 MCV (RBC) [Entitic vol] 95.0 fL High 80-94 [facility] Mean corpuscular hemoglobin (MCH) determinationOrdered By: Nando Wiggins on 06-18-2024 MCH (RBC) [Entitic mass] 27.9 pg 27.0-32.0 [facility] Monocyte percentageOrdered B y: Nando Wiggins on 06-18-2024 Monocytes/100 WBC (Bld) 8.3 % 0-10 [facility] Neutrophil percentageOrdered By: Nando Wiggins on 06-18-2024 Neutrophils/100 WBC (Bld) 56.7 % 47-70 [facility] Platelet countOrdered By: Kathie Wiggins on 06-18-2024 Platelets (Bld) [#/Vol] 301 10*3/uL 150-450 [facility] Potassium measurementOrdered By: Nando Wiggins on 06-18-2024 Potassium [Moles/Vol] 4.7 mmol/L 3.5-5.1 [facility] RBC Auto (Bld) [#/Vol]Ordere d By: Nando Wiggins on 06-18-2024 RBC (Bld) [#/Vol] 3.01 10*6/uL Low 4.6-6.2 [facility] Serum or plasma calcium lilli urement (mass/volume)Ordered By: Nando Wiggins on 06-18-2024 Calcium [Mass/Vol] 9.5 mg/dL 8.5-10.1 [facility] Serum or plasma creatinine m easurement (mass/volume)Ordered By: Nando Wiggins on 06-18-2024 Creatinine [Mass/Vol] 5.06 mg/dL High 0.70-1.30 [facility] Serum or plasma urea nitroge n measurement (mass/volume)Ordered By: Nando Wiggins on 06-18-2024 Urea nitrogen [Mass/Vol] 69 mg/dL High 7-18 [facility] Sodium levelOrdered By: Deb rosejeremie Rosalie on 06-18-2024 Sodium [Moles/Vol] 134 mmol/L Low 136-145 [facility] White blood cell (WBC) count Ordered By: Nando Wiggins on 06-18-2024 WBC (Bld) [#/Vol] 8.8 10*3/uL 4.4-11.0 [facility] Absolute lymphocyte countOrd ered By: Nando Wiggins on 06-11-2024 Lymphocytes Auto (Unsp spec) [#/Vol] 2.00 10*3/uL 0.83-4.51 [facility] Automated lymphocyte count a s percentage of total leukocytesOrdered By: Nando Wiggins on 06-11-2024 Lymphocytes/100 WBC Auto (Unsp spec) 25.4 % 19-41 [facility] Basophil percentageOrdered B y: Nando Wiggins on 06-11-2024 Basophils/100 WBC (Bld) 0.6 % 0-1 [facility] CNPTOUTREACHon 06-11-2024 CNPTOUTREACH Normal [facility] Carbon dioxide measurementOr dered By: Nando Wiggins on 06-11-2024 CO2 [Moles/Vol] 30.0 mmol/L 21.0-32.0 [facility] Chloride measurementOrdered By: Nando Wiggins on 06-11-2024 Chloride [Moles/Vol] 94 mmol/L Low 98-107 [facility] Culture, Anaerobic Any Sourc reed 06-11-2024 CUAN Right Forefoot No growth in [address] [facility] Comment on above: Performed By: #### M 100.3000, M600.2200, M300.2000, M100.4001, M300.3000, M100.2000, M600.2000 ####[facility] [address] [place], [address] Eosinophil percentageOrdered By: biancalagunitaswolf Wiggins on 06-11-2024 Eosinophils/100 WBC (Bld) 2.7 % 0-5 [facility] Erythrocyte distribution wid th ratioOrdered By: [facility] W[facility] on 06-11-2024 Erythrocyte distribution width (RBC) [Ratio] 14.6 % 11.6-14.6 [facility] Erythrocyte distribution wid th standard deviationOrdered By: biancalagunitaswolf Wiggins on 06-11-2024 Erythrocyte distribution width (RBC) [Ratio] 50.4 fl High 35.1-43.9 [facility] Glomerular filtration rate ( GFR) estimationOrdered By: Nando Wiggins on 06-11-2024 GFR/1.73 sq M.predicted among non-blacks MDRD (S/P/Bld) [Vol rate/Area] 10 mL/min/{1.73_m2} Low >60 [facility] Glucose measurementOrdered B y: Nando Wiggins on 06-11-2024 Glucose [Mass/Vol] 222 mg/dL High 74-106 [facility] Hematocrit Auto (Bld) [Volum e fraction]Ordered By: Nando Wiggins on 06-11-2024 Hematocrit (Bld) [Volume fraction] 27.0 % Low 40-54 [facility] Hemoglobin measurementOrdere d By: biancalagunitaswolf Wiggins on 06-11-2024 Hemoglobin (Bld) [Mass/Vol] 8.1 g/dL Low 13.0-16.5 [facility] Immature granulocytes/100 WB C Auto (Bld)Ordered By: Nando Wiggins on 06-11-2024 Immature granulocytes/100 WBC (Bld) 0.500 % 0.0-0.9 [facility] MCV (mean corpuscular volume ) determinationOrdered By: Nando Wiggins on 06-11-2024 MCV (RBC) [Entitic vol] 94.7 fL High 80-94 [facility] Mean corpuscular hemoglobin (MCH) determinationOrdered By: Nando Meekcheko on 06-11-2024 MCH (RBC) [Entitic mass] 28.4 pg 27.0-32.0 [facility] Monocyte percentageOrdered B y: Nando Meekcheko on 06-11-2024 Monocytes/100 WBC (Bld) 9.7 % 0-10 [facility] Neutrophil percentageOrdered By: Nando Meekcheko on 06-11-2024 Neutrophils/100 WBC (Bld) 61.1 % 47-70 [facility] Platelet countOrdered By: Kathie fili Meekcheko on 06-11-2024 Platelets (Bld) [#/Vol] 295 10*3/uL 150-450 [facility] Potassium measurementOrdered By: Kathiebiancalilian Meeklakshmidesiree on 06-11-2024 Potassium [Moles/Vol] 5.1 mmol/L 3.5-5.1 [facility] RBC Auto (Bld) [#/Vol]Ordere d By: Nando Meekcheko on 06-11-2024 RBC (Bld) [#/Vol] 2.85 10*6/uL Low 4.6-6.2 [facility] Serum or plasma calcium lilli urement (mass/volume)Ordered By: Deblilian Meeklakshmidesiree on 06-11-2024 Calcium [Mass/Vol] 9.1 mg/dL 8.5-10.1 [facility] Serum or plasma creatinine m easurement (mass/volume)Ordered By: Kathiebiancalilian Meeklakshmidesiree on 06-11-2024 Creatinine [Mass/Vol] 5.75 mg/dL High 0.70-1.30 [facility] Serum or plasma urea nitroge n measurement (mass/volume)Ordered By: Kathiefili Edenlakshmidesiree on 06-11-2024 Urea nitrogen [Mass/Vol] 69 mg/dL High 7-18 [facility] Sodium levelOrdered By: Deb lilian Rosalie on 06-11-2024 Sodium [Moles/Vol] 131 mmol/L Low 136-145 [facility] White blood cell (WBC) count Ordered By: Nando Wiggins on 06-11-2024 WBC (Bld) [#/Vol] 7.9 10*3/uL 4.4-11.0 [facility] Bilirubin directOrdered By: Nando Wiggins on 06-08-2024 Bilirubin.direct [Mass/Vol] 0.14 mg/dL 0.00-0.30 [facility] Bilirubin, totalOrdered By: Nando Wiggins on 06-08-2024 Bilirubin [Mass/Vol] 0.40 mg/dL 0.20-1.00 [facility] Hemoglobin A1c percentageOrd ered By: Nando Wiggins on 06-08-2024 HbA1c (Bld) [Mass fraction] 7.7 % High 3.8-5.6 [facility] No Panel InformationOrdered By: Nando Wiggins on 06-08-2024 14 U/L Low 15-37 [facility] Serum globulin measurementOr dered By: Nando Wiggins on 06-08-2024 Globulin (S) [Mass/Vol] 4.4 g/dL High 2.2-4.2 [facility] Serum or plasma alanine hawkins otransferase (ALT) measurementOrdered By: Nando Wiggins on 06-08-2024 ALT [Catalytic activity/Vol] 7 U/L Low 16-61 [facility] Serum or plasma albumin lilli urement (mass/volume)Ordered By: Nando Wiggins on 06-08-2024 Albumin [Mass/Vol] 2.2 g/dL Low 3.2-5.0 [facility] Serum or plasma alkaline penelope sphatase measurementOrdered By: Nando Wiggins on 06-08-2024 ALP [Catalytic activity/Vol] 56 U/L 45-117 [facility] Total proteinOrdered By: Sinan Wiggins on 06-08-2024 Protein [Mass/Vol] 6.6 g/dL 6.4-8.2 [facility] Wound Cultureon 06-08-2024 WC Right Forefoot No growth aerobically. Normal [facility] Comment on above: Performed By: #### M 100.3000, M600.2200, M300.2000, M100.4001, M300.3000, M100.2000, M600.2000 ####[facility] [address] [place], [address] Acid fast bacillus (AFB) cul tureOrdered By: Des Ruelas on 06-06-2024 Mycobacterium sp identified Org specific cx Nom (Unsp spec) [facility] Anaerobic cultureOrdered By: Des Ruelas on 06-06-2024 Bacteria identified Anaer cx Nom (Unsp spec) No growth in 5 days. [facility] Bedside Glucoseon 06-06-2024 FINGERSTICK GLU 102 mg/dL Normal 74-106 [facility] Comment on above: Result Comment: FANG ROLANDOENT OF PATIENT CARE PER NURSING PROTOCOL Performed By: #### L 501.080 ####[facility] [address] [place], [address] Bilirubin directOrdered By: Nando Wiggins on 06-06-2024 Bilirubin.direct [Mass/Vol] 0.12 mg/dL 0.00-0.30 [facility] Bilirubin, totalOrdered By: Nando Wiggins on 06-06-2024 Bilirubin [Mass/Vol] 0.30 mg/dL 0.20-1.00 [facility] Decalcification bone/plaqueo n 06-06-2024 Decalcification bone/plaque Normal [facility] Comment on above: Performed By: #### P DEC ####[facility] [address] [place], [place], [address] Foot min 3 Viewson 5 Foot min [address] [facility] Fungus cultureOrdered By: Kana Ruelas on 06-06-2024 Fungus identified Cx Nom (Unsp spec) [facility] Fungus stainOrdered By: Juve Ruelas on 06-06-2024 Fungus identified Fungus stain Nom (Unsp spec) [facility] deOrdered By: Des Ruelas on 06-06-2024 Glucose [Mass/Vol] 102 mg/dL 74-106 [facility] Gram Stainon 06-06-2024 GS Right Forefoot Gram Stain 4+ Red Blood Cells 1+ White Blood Cells No organisms seen Normal [facility] Comment on above: Performed By: #### M 100.3000, M600.2200, M300.2000, M100.4001, M300.3000, M100.2000, M600.2000 ####[facility] [address] [place], [address] Gram stainOrdered By: Des Ruelas on 06-06-2024 Microscopic observation Gram stain Nom (Unsp spec) [facility] Hemoglobin A1c percentageOrd ered By: Nando Wiggins on 06-06-2024 HbA1c (Bld) [Mass fraction] 8.0 % High 3.8-5.6 [facility] MR/POSTOP.ANEon 06-06-2024 MR/POSTOP.ANE Normal [facility] MR/WLAYSQQV5do 06-06-2024 MR/POSTOPAN2 Normal [facility] No Panel InformationOrdered By: Nando Wiggins on 06-06-2024 13 U/L Low 15-37 [facility] Operative Reporton Operative Report Normal [facility] Serum globulin measurementOr dered By: Nando Wiggins on 06-06-2024 Globulin (S) [Mass/Vol] 5.1 g/dL High 2.2-4.2 [facility] Serum or plasma alanine hawkins otransferase (ALT) measurementOrdered By: Nando Wiggins on 06-06-2024 ALT [Catalytic activity/Vol] 18 U/L 16-61 [facility] Serum or plasma albumin lilli urement (mass/volume)Ordered By: Nando Wiggins on 06-06-2024 Albumin [Mass/Vol] 2.4 g/dL Low 3.2-5.0 [facility] Serum or plasma alkaline penelope sphatase measurementOrdered By: Nando Wiggins on 06-06-2024 ALP [Catalytic activity/Vol] 68 U/L 45-117 [facility] Total proteinOrdered By: Sinan Wiggins on 06-06-2024 Protein [Mass/Vol] 7.5 g/dL 6.4-8.2 [facility] Wound Cultureon 06-05-[address] [facility] Comment on above: Performed By: #### M 100.2000, M100.3000, M100.4001 ####[facility] [address] [place], [address] MR/PAT.ANEon 06-04-2024 MR/PAT.ANE Normal [facility] CNPNon 05-30-2024 CNPN Normal [facility] Wound Ctr History AND Physic ariella 05-29-2024 Wound Ctr History & Physical Normal [facility] Operative Reporton Operative Report Normal [facility] Wound Ctr History AND Physic ariella 05-17-2024 Wound Ctr History & Physical Normal [facility] Basic Metabolic Profile (BMP )on 05-14-2024 BUN Normal 7-18 [facility] Comment on above: Result Comment: Canc elled via OM: Order cancelled - Patient discharged Performed By: #### L 500.2500 ####[facility] [address] [place], [address] Result Comment: Canc elled via OM: MD Ordered Performed By: #### L 100.0500, L500.2500 ####[facility] [address] [place], [address] BUN/CRE Normal 10-20 [facility] Comment on above: Result Comment: Canc elled via OM: Order cancelled - Patient discharged Performed By: #### L 500.2500 ####[facility] [address] [place], [address] Result Comment: Canc elled via OM: MD Ordered Performed By: #### L 100.0500, L500.2500 ####[facility] [address] [place], [address] CA,Total Normal 8.5-10.1 [facility] Comment on above: Result Comment: Canc elled via OM: Order cancelled - Patient discharged Performed By: #### L 500.2500 ####[facility] [address] [place], [address] Result Comment: Canc elled via OM: MD Ordered Performed By: #### L 100.0500, L500.2500 ####[facility] [address] [place], [address] CL Normal 98-107 [facility] Comment on above: Result Comment: Canc elled via OM: Order cancelled - Patient discharged Performed By: #### L 500.2500 ####[facility] [address] [place], [address] Result Comment: Canc elled via OM: MD Ordered Performed By: #### L 100.0500, L500.2500 ####[facility] [address] [place], [address] CO2 Normal 21.0-32.0 [facility] Comment on above: Result Comment: Canc elled via OM: Order cancelled - Patient discharged Performed By: #### L 500.2500 ####[facility] [address] [place], [address] Result Comment: Canc elled via OM: MD Ordered Performed By: #### L 100.0500, L500.2500 ####[facility] [address] [place], [address] CREAT,SERUM Normal 0.70-1.30 [facility] Comment on above: Result Comment: Canc elled via OM: Order cancelled - Patient discharged Performed By: #### L 500.2500 ####[facility] [address] [place], [address] Result Comment: Canc elled via OM: MD Ordered Performed By: #### L 100.0500, L500.2500 ####[facility] [address] [place], [address] EST GFR Normal >60 [facility] Comment on above: Result Comment: Canc elled via OM: Order cancelled - Patient discharged Performed By: #### L 500.2500 ####[facility] [address] [place], [address] Result Comment: Canc elled via OM: MD Ordered Performed By: #### L 100.0500, L500.2500 ####[facility] [address] [place], [address] EST GFR - AA Normal >60 [facility] Comment on above: Result Comment: Canc elled via OM: Order cancelled - Patient discharged Performed By: #### L 500.2500 ####[facility] [address] [place], [address] Result Comment: Canc elled via OM: MD Ordered Performed By: #### L 100.0500, L500.2500 ####[facility] [address] [place], [address] GAP Normal 5-15 [facility] Comment on above: Result Comment: Canc elled via OM: Order cancelled - Patient discharged Performed By: #### L 500.2500 ####[facility] [address] [place], [address] Result Comment: Canc elled via OM: MD Ordered Performed By: #### L 100.0500, L500.2500 ####[facility] [address] [place], [address] GLU Normal 74-106 [facility] Comment on above: Result Comment: Canc elled via OM: Order cancelled - Patient discharged Performed By: #### L 500.2500 ####[facility] [address] [place], [address] Result Comment: Canc elled via OM: MD Ordered Performed By: #### L 100.0500, L500.2500 ####[facility] [address] [place], [address] Potassium Normal 3.5-5.1 [facility] Comment on above: Result Comment: Canc elled via OM: Order cancelled - Patient discharged Performed By: #### L 500.2500 ####[facility] [address] [place], [address] Result Comment: Canc elled via OM: MD Ordered Performed By: #### L 100.0500, L500.2500 ####[facility] [address] [place], [address] Basic Metabolic Profile (BMP) Normal 136-145 [facility] Comment on above: Result Comment: Canc elled via OM: Order cancelled - Patient discharged Performed By: #### L 500.2500 ####[facility] [address] [place], [address] Result Comment: Canc elled via OM: MD Ordered Performed By: #### L 100.0500, L500.2500 ####[facility] [address] [place], [address] CBC-Complete Blood Cnt No Di ffon 05-14-2024 HCT Normal 40-54 [facility] Comment on above: Result Comment: Canc elled via OM: Order cancelled - Patient discharged Performed By: #### L 100.0500 ####[facility] [address] [place], [address] HGB Normal 13.0-16.5 [facility] Comment on above: Result Comment: Canc elled via OM: Order cancelled - Patient discharged Performed By: #### L 100.0500 ####[facility] [address] [place], [address] MCH Normal 27.0-32.0 [facility] Comment on above: Result Comment: Canc elled via OM: Order cancelled - Patient discharged Performed By: #### L 100.0500 ####[facility] [address] [place], [address] MCHC Normal 32-36 [facility] Comment on above: Result Comment: Canc elled via OM: Order cancelled - Patient discharged Performed By: #### L 100.0500 ####[facility] [address] [place], [address] MCV Normal 80-94 [facility] Comment on above: Result Comment: Canc elled via OM: Order cancelled - Patient discharged Performed By: #### L 100.0500 ####[facility] [address] [place], [address] PLT Normal 150-450 [facility] Comment on above: Result Comment: Canc elled via OM: Order cancelled - Patient discharged Performed By: #### L 100.0500 ####[facility] [address] [place], [address] RBC Normal 4.6-6.2 [facility] Comment on above: Result Comment: Canc elled via OM: Order cancelled - Patient discharged Performed By: #### L 100.0500 ####[facility] [address] [place], [address] RDW CV Normal 11.6-14.6 [facility] Comment on above: Result Comment: Canc elled via OM: Order cancelled - Patient discharged Performed By: #### L 100.0500 ####[facility] [address] [place], [address] RDW SD Normal 35.1-43.9 [facility] Comment on above: Result Comment: Canc elled via OM: Order cancelled - Patient discharged Performed By: #### L 100.0500 ####[facility] [address] [facility] [place], [address] WBC Normal 4.4-11.0 [facility] Comment on above: Result Comment: Canc elled via OM: Order cancelled - Patient discharged Performed By: #### L 100.0500 ####[facility] [address] [place], [address] HCT Normal 40-54 [facility] Comment on above: Result Comment: Canc elled via OM: MD Ordered Performed By: #### L 100.0500, L500.2500 ####[facility] [address] [place], [address] HGB Normal 13.0-16.5 [facility] Comment on above: Result Comment: Canc elled via OM: MD Ordered Performed By: #### L 100.0500, L500.2500 ####[facility] [address] [place], [address] MCH Normal 27.0-32.0 [facility] Comment on above: Result Comment: Canc elled via OM: MD Ordered Performed By: #### L 100.0500, L500.2500 ####[facility] [address] [place], [address] MCHC Normal 32-36 [facility] Comment on above: Result Comment: Canc elled via OM: MD Ordered Performed By: #### L 100.0500, L500.2500 ####[facility] [address] [place], [address] MCV Normal 80-94 [facility] Comment on above: Result Comment: Canc elled via OM: MD Ordered Performed By: #### L 100.0500, L500.2500 ####[facility] [address] [place], [address] PLT Normal 150-450 [facility] Comment on above: Result Comment: Canc elled via OM: MD Ordered Performed By: #### L 100.0500, L500.2500 ####[facility] [address] [place], [address] RBC Normal 4.6-6.2 [facility] Comment on above: Result Comment: Canc elled via OM: MD Ordered Performed By: #### L 100.0500, L500.2500 ####[facility] [address] [place], [address] RDW CV Normal 11.6-14.6 [facility] Comment on above: Result Comment: Canc elled via OM: MD Ordered Performed By: #### L 100.0500, L500.2500 ####[facility] [address] [place], [address] RDW SD Normal 35.1-43.9 [facility] Comment on above: Result Comment: Canc elled via OM: MD Ordered Performed By: #### L 100.0500, L500.2500 ####[facility] [address] [place], [address] WBC Normal 4.4-11.0 [facility] Comment on above: Result Comment: Canc elled via OM: MD Ordered Performed By: #### L 100.0500, L500.2500 ####[facility] [address] [place], [address] Basic Metabolic Profile (BMP )on 05-13-2024 BUN Normal 7-18 [facility] Comment on above: Result Comment: Canc elled via OM: MD Ordered Performed By: #### L 500.2500, L100.0500 ####[facility] [address] [place], [address] BUN/CRE Normal 10-20 [facility] Comment on above: Result Comment: Canc elled via OM: MD Ordered Performed By: #### L 500.2500, L100.0500 ####[facility] [address] [place], [address] CA,Total Normal 8.5-10.1 [facility] Comment on above: Result Comment: Canc elled via OM: MD Ordered Performed By: #### L 500.2500, L100.0500 ####[facility] [address] [place], [address] CL Normal 98-107 [facility] Comment on above: Result Comment: Canc elled via OM: MD Ordered Performed By: #### L 500.2500, L100.0500 ####[facility] [address] [place], [address] CO2 Normal 21.0-32.0 [facility] Comment on above: Result Comment: Canc elled via OM: MD Ordered Performed By: #### L 500.2500, L100.0500 ####[facility] [address] [place], [address] CREAT,SERUM Normal 0.70-1.30 [facility] Comment on above: Result Comment: Canc elled via OM: MD Ordered Performed By: #### L 500.2500, L100.0500 ####[facility] [address] [place], [address] EST GFR Normal >60 [facility] Comment on above: Result Comment: Canc elled via OM: MD Ordered Performed By: #### L 500.2500, L100.0500 ####[facility] [address] [place], [address] EST GFR - AA Normal >60 [facility] Comment on above: Result Comment: Canc elled via OM: MD Ordered Performed By: #### L 500.2500, L100.0500 ####[facility] [address] [place], [address] GAP Normal 5-15 [facility] Comment on above: Result Comment: Canc elled via OM: MD Ordered Performed By: #### L 500.2500, L100.0500 ####[facility] [address] [place], [address] GLU Normal 74-106 [facility] Comment on above: Result Comment: Canc elled via OM: MD Ordered Performed By: #### L 500.2500, L100.0500 ####[facility] [address] [place], [address] Potassium Normal 3.5-5.1 [facility] Comment on above: Result Comment: Canc elled via OM: MD Ordered Performed By: #### L 500.2500, L100.0500 ####[facility] [address] [place], [address] Basic Metabolic Profile (BMP) Normal 136-145 [facility] Comment on above: Result Comment: Canc elled via OM: MD Ordered Performed By: #### L 500.2500, L100.0500 ####[facility] [address] [place], [address] CBC-Complete Blood Cnt No Di ffon 05-13-2024 HCT Normal 40-54 [facility] Comment on above: Result Comment: Canc elled via OM: MD Ordered Performed By: #### L 500.2500, L100.0500 ####[facility] [address] [place], [address] HGB Normal 13.0-16.5 [facility] Comment on above: Result Comment: Canc elled via OM: MD Ordered Performed By: #### L 500.2500, L100.0500 ####[facility] [address] [place], [address] MCH Normal 27.0-32.0 [facility] Comment on above: Result Comment: Canc elled via OM: MD Ordered Performed By: #### L 500.2500, L100.0500 ####[facility] [address] [place], [address] MCHC Normal 32-36 [facility] Comment on above: Result Comment: Canc elled via OM: MD Ordered Performed By: #### L 500.2500, L100.0500 ####[facility] [address] [place], [address] MCV Normal 80-94 [facility] Comment on above: Result Comment: Canc elled via OM: MD Ordered Performed By: #### L 500.2500, L100.0500 ####[facility] [address] [place], [address] PLT Normal 150-450 [facility] Comment on above: Result Comment: Canc elled via OM: MD Ordered Performed By: #### L 500.2500, L100.0500 ####[facility] [address] [place], [address] RBC Normal 4.6-6.2 [facility] Comment on above: Result Comment: Canc elled via OM: MD Ordered Performed By: #### L 500.2500, L100.0500 ####[facility] [address] [place], [address] RDW CV Normal 11.6-14.6 [facility] Comment on above: Result Comment: Canc elled via OM: MD Ordered Performed By: #### L 500.2500, L100.0500 ####[facility] [address] [place], [address] RDW SD Normal 35.1-43.9 [facility] Comment on above: Result Comment: Canc elled via OM: MD Ordered Performed By: #### L 500.2500, L100.0500 ####[facility] [address] [place], [address] WBC Normal 4.4-11.0 [facility] Comment on above: Result Comment: Canc elled via OM: MD Ordered Performed By: #### L 500.2500, L100.0500 ####[facility] [address] [place], [address] Basic Metabolic Profile (BMP )on 05-12-2024 BUN Normal 7-18 [facility] Comment on above: Result Comment: Canc elled via OM: Order cancelled - Patient discharged Performed By: #### L 500.2500 ####[facility] [address] [place], [address] Result Comment: Canc elled via OM: MD Ordered Performed By: #### L 100.0500, L500.2500 ####[facility] [address] [place], [address] BUN/CRE Normal 10-20 [facility] Comment on above: Result Comment: Canc elled via OM: Order cancelled - Patient discharged Performed By: #### L 500.2500 ####[facility] [address] [place], [address] Result Comment: Canc elled via OM: MD Ordered Performed By: #### L 100.0500, L500.2500 ####[facility] [address] [place], [address] CA,Total Normal 8.5-10.1 [facility] Comment on above: Result Comment: Canc elled via OM: Order cancelled - Patient discharged Performed By: #### L 500.2500 ####[facility] [address] [place], [address] Result Comment: Canc elled via OM: MD Ordered Performed By: #### L 100.0500, L500.2500 ####[facility] [address] [place], [address] CL Normal 98-107 [facility] Comment on above: Result Comment: Canc elled via OM: Order cancelled - Patient discharged Performed By: #### L 500.2500 ####[facility] [address] [place], [address] Result Comment: Canc elled via OM: MD Ordered Performed By: #### L 100.0500, L500.2500 ####[facility] [address] [place], [address] CO2 Normal 21.0-32.0 [facility] Comment on above: Result Comment: Canc elled via OM: Order cancelled - Patient discharged Performed By: #### L 500.2500 ####[facility] [address] [place], [address] Result Comment: Canc elled via OM: MD Ordered Performed By: #### L 100.0500, L500.2500 ####[facility] [address] [place], [address] CREAT,SERUM Normal 0.70-1.30 [facility] Comment on above: Result Comment: Canc elled via OM: Order cancelled - Patient discharged Performed By: #### L 500.2500 ####[facility] [address] [place], [address] Result Comment: Canc elled via OM: MD Ordered Performed By: #### L 100.0500, L500.2500 ####[facility] [address] [place], [address] EST GFR Normal >60 [facility] Comment on above: Result Comment: Canc elled via OM: Order cancelled - Patient discharged Performed By: #### L 500.2500 ####[facility] [address] [place], [address] Result Comment: Canc elled via OM: MD Ordered Performed By: #### L 100.0500, L500.2500 ####[facility] [address] [place], [address] EST GFR - AA Normal >60 [facility] Comment on above: Result Comment: Canc elled via OM: Order cancelled - Patient discharged Performed By: #### L 500.2500 ####[facility] [address] [place], [address] Result Comment: Canc elled via OM: MD Ordered Performed By: #### L 100.0500, L500.2500 ####[facility] [address] [place], [address] GAP Normal 5-15 [facility] Comment on above: Result Comment: Canc elled via OM: Order cancelled - Patient discharged Performed By: #### L 500.2500 ####[facility] [address] [place], [address] Result Comment: Canc elled via OM: MD Ordered Performed By: #### L 100.0500, L500.2500 ####[facility] [address] [place], [address] GLU Normal 74-106 [facility] Comment on above: Result Comment: Canc elled via OM: Order cancelled - Patient discharged Performed By: #### L 500.2500 ####[facility] [address] [place], [address] Result Comment: Canc elled via OM: MD Ordered Performed By: #### L 100.0500, L500.2500 ####[facility] [address] [place], [address] Potassium Normal 3.5-5.1 [facility] Comment on above: Result Comment: Canc elled via OM: Order cancelled - Patient discharged Performed By: #### L 500.2500 ####[facility] [address] [place], [address] Result Comment: Canc elled via OM: MD Ordered Performed By: #### L 100.0500, L500.2500 ####[facility] [address] [place], [address] Basic Metabolic Profile (BMP) Normal 136-145 [facility] Comment on above: Result Comment: Canc elled via OM: Order cancelled - Patient discharged Performed By: #### L 500.2500 ####[facility] [address] [place], [address] Result Comment: Canc elled via OM: MD Ordered Performed By: #### L 100.0500, L500.2500 ####[facility] [address] [place], [address] CBC-Complete Blood Cnt No Di ffon 05-12-2024 HCT Normal 40-54 [facility] Comment on above: Result Comment: Canc elled via OM: Order cancelled - Patient discharged Performed By: #### L 100.0500 ####[facility] [address] [place], [address] HGB Normal 13.0-16.5 [facility] Comment on above: Result Comment: Canc elled via OM: Order cancelled - Patient discharged Performed By: #### L 100.0500 ####[facility] [address] [place], [address] MCH Normal 27.0-32.0 [facility] Comment on above: Result Comment: Canc elled via OM: Order cancelled - Patient discharged Performed By: #### L 100.0500 ####[facility] [address] [place], [address] MCHC Normal 32-36 [facility] Comment on above: Result Comment: Canc elled via OM: Order cancelled - Patient discharged Performed By: #### L 100.0500 ####[facility] [address] [place], [address] MCV Normal 80-94 [facility] Comment on above: Result Comment: Canc elled via OM: Order cancelled - Patient discharged Performed By: #### L 100.0500 ####[facility] [address] [place], [address] PLT Normal 150-450 [facility] Comment on above: Result Comment: Canc elled via OM: Order cancelled - Patient discharged Performed By: #### L 100.0500 ####[facility] [address] [place], [address] RBC Normal 4.6-6.2 [facility] Comment on above: Result Comment: Canc elled via OM: Order cancelled - Patient discharged Performed By: #### L 100.0500 ####[facility] [address] [place], [address] RDW CV Normal 11.6-14.6 [facility] Comment on above: Result Comment: Canc elled via OM: Order cancelled - Patient discharged Performed By: #### L 100.0500 ####[facility] [address] [place], [address] RDW SD Normal 35.1-43.9 [facility] Comment on above: Result Comment: Canc elled via OM: Order cancelled - Patient discharged Performed By: #### L 100.0500 ####[facility] [address] [place], [address] WBC Normal 4.4-11.0 [facility] Comment on above: Result Comment: Canc elled via OM: Order cancelled - Patient discharged Performed By: #### L 100.0500 ####[facility] [address] [place], [address] HCT Normal 40-54 [facility] Comment on above: Result Comment: Canc elled via OM: MD Ordered Performed By: #### L 100.0500, L500.2500 ####[facility] [address] [place], [address] HGB Normal 13.0-16.5 [facility] Comment on above: Result Comment: Canc elled via OM: MD Ordered Performed By: #### L 100.0500, L500.2500 ####[facility] [address] [place], [address] MCH Normal 27.0-32.0 [facility] Comment on above: Result Comment: Canc elled via OM: MD Ordered Performed By: #### L 100.0500, L500.2500 ####[facility] [address] [place], [address] MCHC Normal 32-36 [facility] Comment on above: Result Comment: Canc elled via OM: MD Ordered Performed By: #### L 100.0500, L500.2500 ####[facility] [address] [place], [address] MCV Normal 80-94 [facility] Comment on above: Result Comment: Canc elled via OM: MD Ordered Performed By: #### L 100.0500, L500.2500 ####[facility] [address] [place], [address] PLT Normal 150-450 [facility] Comment on above: Result Comment: Canc elled via OM: MD Ordered Performed By: #### L 100.0500, L500.2500 ####[facility] [address] [place], [address] RBC Normal 4.6-6.2 [facility] Comment on above: Result Comment: Canc elled via OM: MD Ordered Performed By: #### L 100.0500, L500.2500 ####[facility] [address] [place], [address] RDW CV Normal 11.6-14.6 [facility] Comment on above: Result Comment: Canc elled via OM: MD Ordered Performed By: #### L 100.0500, L500.2500 ####[facility] [address] [place], [address] RDW SD Normal 35.1-43.9 [facility] Comment on above: Result Comment: Canc elled via OM: MD Ordered Performed By: #### L 100.0500, L500.2500 ####[facility] [address] [place], [address] WBC Normal 4.4-11.0 [facility] Comment on above: Result Comment: Canc elled via OM: MD Ordered Performed By: #### L 100.0500, L500.2500 ####[facility] [address] [place], [address] Basic Metabolic Profile (BMP )on 05-11-2024 BUN Normal -18 [facility] Comment on above: Result Comment: Canc elled via OM: MD Ordered Performed By: #### L 500.2500, L100.0500 ####[facility] [address] [place], [address] BUN/CRE Normal 10-20 [facility] Comment on above: Result Comment: Canc elled via OM: MD Ordered Performed By: #### L 500.2500, L100.0500 ####[facility] [address] [place], [address] CA,Total Normal 8.5-10.1 [facility] Comment on above: Result Comment: Canc elled via OM: MD Ordered Performed By: #### L 500.2500, L100.0500 ####[facility] [address] [place], [address] CL Normal 98-107 [facility] Comment on above: Result Comment: Canc elled via OM: MD Ordered Performed By: #### L 500.2500, L100.0500 ####[facility] [address] [place], [address] CO2 Normal 21.0-32.0 [facility] Comment on above: Result Comment: Canc elled via OM: MD Ordered Performed By: #### L 500.2500, L100.0500 ####[facility] [address] [place], [address] CREAT,SERUM Normal 0.70-1.30 [facility] Comment on above: Result Comment: Canc elled via OM: MD Ordered Performed By: #### L 500.2500, L100.0500 ####[facility] [address] [place], [address] EST GFR Normal >60 [facility] Comment on above: Result Comment: Canc elled via OM: MD Ordered Performed By: #### L 500.2500, L100.0500 ####[facility] [address] [place], [address] EST GFR - AA Normal >60 [facility] Comment on above: Result Comment: Canc elled via OM: MD Ordered Performed By: #### L 500.2500, L100.0500 ####[facility] [address] [place], [address] GAP Normal 5-15 [facility] Comment on above: Result Comment: Canc elled via OM: MD Ordered Performed By: #### L 500.2500, L100.0500 ####[facility] [address] [place], [address] GLU Normal 74-106 [facility] Comment on above: Result Comment: Canc elled via OM: MD Ordered Performed By: #### L 500.2500, L100.0500 ####[facility] [address] [place], [address] Potassium Normal 3.5-5.1 [facility] Comment on above: Result Comment: Canc elled via OM: MD Ordered Performed By: #### L 500.2500, L100.0500 ####[facility] [address] [place], [address] Basic Metabolic Profile (BMP) Normal 136-145 [facility] Comment on above: Result Comment: Canc elled via OM: MD Ordered Performed By: #### L 500.2500, L100.0500 ####[facility] [address] [place], [address] CBC-Complete Blood Cnt No Di ffon 05-11-2024 HCT Normal 40-54 [facility] Comment on above: Result Comment: Canc elled via OM: MD Ordered Performed By: #### L 500.2500, L100.0500 ####[facility] [address] [place], [address] HGB Normal 13.0-16.5 [facility] Comment on above: Result Comment: Canc elled via OM: MD Ordered Performed By: #### L 500.2500, L100.0500 ####[facility] [address] [place], [address] MCH Normal 27.0-32.0 [facility] Comment on above: Result Comment: Canc elled via OM: MD Ordered Performed By: #### L 500.2500, L100.0500 ####[facility] [address] [place], [address] MCHC Normal 32-36 [facility] Comment on above: Result Comment: Canc elled via OM: MD Ordered Performed By: #### L 500.2500, L100.0500 ####[facility] [address] [place], [address] MCV Normal 80-94 [facility] Comment on above: Result Comment: Canc elled via OM: MD Ordered Performed By: #### L 500.2500, L100.0500 ####[facility] [address] [place], [address] PLT Normal 150-450 [facility] Comment on above: Result Comment: Canc elled via OM: MD Ordered Performed By: #### L 500.2500, L100.0500 ####[facility] [address] [place], [address] RBC Normal 4.6-6.2 [facility] Comment on above: Result Comment: Canc elled via OM: MD Ordered Performed By: #### L 500.2500, L100.0500 ####[facility] [address] [place], [address] RDW CV Normal 11.6-14.6 [facility] Comment on above: Result Comment: Canc elled via OM: MD Ordered Performed By: #### L 500.2500, L100.0500 ####[facility] [address] [place], [address] RDW SD Normal 35.1-43.9 [facility] Comment on above: Result Comment: Canc elled via OM: MD Ordered Performed By: #### L 500.2500, L100.0500 ####[facility] [address] [place], [address] WBC Normal 4.4-11.0 [facility] Comment on above: Result Comment: Canc elled via OM: MD Ordered Performed By: #### L 500.2500, L100.0500 ####[facility] [address] [place], [address] Basic Metabolic Profile (BMP )on 05-10-2024 BUN/CRE 9.4 RATIO Low 10-20 [facility] Comment on above: Performed By: #### L 500.2500, L100.0500 ####[facility] [address] [place], [address] CA,Total 8.8 mg/dL Normal 8.5-10.1 [facility] Comment on above: Performed By: #### L 500.2500, L100.0500 ####[facility] [address] [place], [address] Chloride [Moles/Vol] 102 mmol/L Normal 98-107 [facility] Comment on above: Performed By: #### L 500.2500, L100.0500 ####[facility] [address] [place], [address] CO2 [Moles/Vol] 25.0 mmol/L Normal 21.0-32.0 [facility] Comment on above: Performed By: #### L 500.2500, L100.0500 ####[facility] [address] [place], [address] Creatinine [Mass/Vol] 5.98 mg/dL High 0.70-1.30 [facility] Comment on above: Result Comment: The validity of the calculated GFR GFRAA in patients over70 years has not been determined. Clinical correlation isessential. Performed By: #### L 500.2500, L100.0500 ####[facility] [address] [place], [address] ECRCL 9.33 ml/min Normal [facility] Comment on above: Performed By: #### L 500.2500, L100.0500 ####[facility] [address] [place], [address] EST GFR - AA 12 mL/min Low >60 [facility] Comment on above: Result Comment: Afri can Angolan GFR Calc Performed By: #### L 500.2500, L100.0500 ####[facility] [address] [place], [address] GAP 8 Normal 5-15 [facility] Comment on above: Performed By: #### L 500.2500, L100.0500 ####[facility] [address] [place], [address] GFR/1.73 sq M.predicted among non-blacks MDRD (S/P/Bld) [Vol rate/Area] 10 mL/min/{1.73_m2} Low >60 [facility] Comment on above: Result Comment: Non- GFR Calc Performed By: #### L 500.2500, L100.0500 ####[facility] [address] [place], [address] Glucose [Mass/Vol] 141 mg/dL High 74-106 [facility] Comment on above: Result Comment: Fast ing Glucose result greater than or equal to 126 mg/dLsuggests DIABETES MELLITUS per A.D.A. criteria. Performed By: #### L 500.2500, L100.0500 ####[facility] [address] [place], [address] Potassium [Moles/Vol] 4.2 mmol/L Normal 3.5-5.1 [facility] Comment on above: Performed By: #### L 500.2500, L100.0500 ####[facility] [address] [place], [address] Sodium [Moles/Vol] 135 mmol/L Low 136-145 [facility] Comment on above: Performed By: #### L 500.2500, L100.0500 ####[facility] [address] [place], [address] Urea nitrogen [Mass/Vol] 56 mg/dL High 7-18 [facility] Comment on above: Performed By: #### L 500.2500, L100.0500 ####[facility] [address] [place], [address] Bedside Glucoseon 05-10-2024 FINGERSTICK GLU 188 mg/dL High 74-106 [facility] Comment on above: Result Comment: FANG VAZQUEZ OF PATIENT CARE PER NURSING PROTOCOL Performed By: #### L 501.080 ####[facility] [address] [place], [address] FINGERSTICK GLU 165 mg/dL High 74-106 [facility] Comment on above: Result Comment: FANG GEMENT OF PATIENT CARE PER NURSING PROTOCOL Performed By: #### L 501.080 ####[facility] [address] [place], [address] FINGERSTICK GLU 115 mg/dL High 74-106 [facility] Comment on above: Result Comment: FANG GEMENT OF PATIENT CARE PER NURSING PROTOCOL Performed By: #### L 501.080 ####[facility] [address] [place], [address] CBC-Complete Blood Cnt No Di ffon 05-10-2024 Erythrocyte distribution width (RBC) [Ratio] 15.0 % High 11.6-14.6 [facility] Comment on above: Performed By: #### L 500.2500, L100.0500 ####[facility] [address] [place], [address] Hematocrit (Bld) [Volume fraction] 29.9 % Low 40-54 [facility] Comment on above: Performed By: #### L 500.2500, L100.0500 ####[facility] [address] [place], [address] Hemoglobin (Bld) [Mass/Vol] 9.2 g/dL Low 13.0-16.5 [facility] Comment on above: Performed By: #### L 500.2500, L100.0500 ####[facility] [address] [place], [address] MCH (RBC) [Entitic mass] 29.3 pg Normal 27.0-32.0 [facility] Comment on above: Performed By: #### L 500.2500, L100.0500 ####[facility] [address] [place], [address] MCHC (RBC) [Mass/Vol] 30.8 g/dL Low 32-36 [facility] Comment on above: Performed By: #### L 500.2500, L100.0500 ####[facility] [address] [place], [address] MCV (RBC) [Entitic vol] 95.2 fL High 80-94 [facility] Comment on above: Performed By: #### L 500.2500, L100.0500 ####[facility] [address] [place], [address] Platelet mean volume (Bld) [Entitic vol] 10.5 fL Normal 6.2-12.0 [facility] Comment on above: Performed By: #### L 500.2500, L100.0500 ####[facility] [address] [place], [address] Platelets (Bld) [#/Vol] 205 10*3/uL Normal 150-450 [facility] Comment on above: Performed By: #### L 500.2500, L100.0500 ####[facility] [address] [place], [address] RBC (Bld) [#/Vol] 3.14 10*6/uL Low 4.6-6.2 [facility] Comment on above: Performed By: #### L 500.2500, L100.0500 ####[facility] [address] [place], [address] RDW SD 51.8 fl High 35.1-43.9 [facility] Comment on above: Performed By: #### L 500.2500, L100.0500 ####[facility] [address] [place], [address] WBC (Bld) [#/Vol] 8.2 10*3/uL Normal 4.4-11.0 [facility] Comment on above: Performed By: #### L 500.2500, L100.0500 ####[facility] [address] [place], [address] Culture, Anaerobic Any Sourc reed 05-10-2024 CUAN COLLECTED IN OR RIGH T HALLUX AND 1ST METATARSAL No anaerobic bacteria isolated. Normal [facility] Comment on above: Performed By: #### M 100.2000, M100.3000, M100.4001 ####[facility] [address] [place], [address] Vancomycin, Random Levelon 1 07-11-2023 VANCO, RANDOM 21.6 ug/mL High 0.0-15.0 [facility] Comment on above: Order Comment: Comme nts: PLEASE DRAW PRE-DIALYSIS Result Comment: VANC OMYCIN STANDARD DRUG THERAPY: CRITICAL VALUE IS > 15.0 mg/LVANCOMYCIN HIGH INTENSITY THERAPY: CRITICAL VALUE IS > 20.0 mg/LPLEASE CONTACT PHARMACY SERVICES (#3070) FOR INTERPRETATIONOF RESULTS. THIS RESULT DOES NOT REPRESENT A PEAK OR TROUGHLEVEL FOR THIS DRUG. Performed By: #### L 501.8850 ####[facility] [address] [place], [address] Basic Metabolic Profile (BMP )on 05-09-2024 BUN/CRE 9.9 RATIO Low 10-20 [facility] Comment on above: Performed By: #### L 100.0500, L500.2500 ####[facility] [address] [place], [address] CA,Total 8.8 mg/dL Normal 8.5-10.1 [facility] Comment on above: Performed By: #### L 100.0500, L500.2500 ####[facility] [address] [place], [address] Chloride [Moles/Vol] 102 mmol/L Normal 98-107 [facility] Comment on above: Performed By: #### L 100.0500, L500.2500 ####[facility] [address] [place], [address] CO2 [Moles/Vol] 27.0 mmol/L Normal 21.0-32.0 [facility] Comment on above: Performed By: #### L 100.0500, L500.2500 ####[facility] [address] [place], [address] Creatinine [Mass/Vol] 4.74 mg/dL High 0.70-1.30 [facility] Comment on above: Result Comment: The validity of the calculated GFR GFRAA in patients over70 years has not been determined. Clinical correlation isessential. Performed By: #### L 100.0500, L500.2500 ####[facility] [address] [place], [address] ECRCL 11.77 ml/min Normal [facility] Comment on above: Performed By: #### L 100.0500, L500.2500 ####[facility] [address] [place], [address] EST GFR - AA 15 mL/min Low >60 [facility] Comment on above: Result Comment: Afri can Angolan GFR Calc Performed By: #### L 100.0500, L500.2500 ####[facility] [address] [place], [address] GAP 6 Normal 5-15 [facility] Comment on above: Performed By: #### L 100.0500, L500.2500 ####[facility] [address] [place], [address] GFR/1.73 sq M.predicted among non-blacks MDRD (S/P/Bld) [Vol rate/Area] 13 mL/min/{1.73_m2} Low >60 [facility] Comment on above: Result Comment: Non- GFR Calc Performed By: #### L 100.0500, L500.2500 ####[facility] [address] [place], [address] Glucose [Mass/Vol] 105 mg/dL Normal 74-106 [facility] Comment on above: Result Comment: Fast ing Glucose result from 100 to 125 mg/dLsuggests IMPAIRED HOMEOSTASIS per A.D.A. criteria. Performed By: #### L 100.0500, L500.2500 ####[facility] [address] [place], [address] Potassium [Moles/Vol] 4.2 mmol/L Normal 3.5-5.1 [facility] Comment on above: Performed By: #### L 100.0500, L500.2500 ####[facility] [address] [place], [address] Sodium [Moles/Vol] 135 mmol/L Low 136-145 [facility] Comment on above: Performed By: #### L 100.0500, L500.2500 ####[facility] [address] [place], [address] Urea nitrogen [Mass/Vol] 47 mg/dL High 7-18 [facility] Comment on above: Performed By: #### L 100.0500, L500.2500 ####[facility] [address] [place], [address] Bedside Glucoseon 05-09-2024 FINGERSTICK GLU 176 mg/dL High 74-106 [facility] Comment on above: Result Comment: FANG GEMENT OF PATIENT CARE PER NURSING PROTOCOL Performed By: #### L 501.080 ####[facility] [address] [place], [address] FINGERSTICK GLU 264 mg/dL High 74-106 [facility] Comment on above: Result Comment: FANG GEMENT OF PATIENT CARE PER NURSING PROTOCOL Performed By: #### L 501.080 ####[facility] [address] [place], [address] FINGERSTICK GLU 90 mg/dL Normal 74-106 [facility] Comment on above: Result Comment: FANG GEMENT OF PATIENT CARE PER NURSING PROTOCOL Performed By: #### L 501.080 ####[facility] [address] [place], [address] CBC-Complete Blood Cnt No Di ffon 05-09-2024 Erythrocyte distribution width (RBC) [Ratio] 15.1 % High 11.6-14.6 [facility] Comment on above: Performed By: #### L 100.0500, L500.2500 ####[facility] [address] [place], [address] Hematocrit (Bld) [Volume fraction] 29.4 % Low 40-54 [facility] Comment on above: Performed By: #### L 100.0500, L500.2500 ####[facility] [address] [place], [address] Hemoglobin (Bld) [Mass/Vol] 8.7 g/dL Low 13.0-16.5 [facility] Comment on above: Performed By: #### L 100.0500, L500.2500 ####[facility] [address] [place], [address] MCH (RBC) [Entitic mass] 28.5 pg Normal 27.0-32.0 [facility] Comment on above: Performed By: #### L 100.0500, L500.2500 ####[facility] [address] [place], [address] MCHC (RBC) [Mass/Vol] 29.6 g/dL Low 32-36 [facility] Comment on above: Performed By: #### L 100.0500, L500.2500 ####[facility] [address] [place], [address] MCV (RBC) [Entitic vol] 96.4 fL High 80-94 [facility] Comment on above: Performed By: #### L 100.0500, L500.2500 ####[facility] [address] [place], [address] Platelet mean volume (Bld) [Entitic vol] 11.5 fL Normal 6.2-12.0 [facility] Comment on above: Performed By: #### L 100.0500, L500.2500 ####[facility] [address] [place], [address] Platelets (Bld) [#/Vol] 206 10*3/uL Normal 150-450 [facility] Comment on above: Performed By: #### L 100.0500, L500.2500 ####[facility] [address] [place], [address] RBC (Bld) [#/Vol] 3.05 10*6/uL Low 4.6-6.2 [facility] Comment on above: Performed By: #### L 100.0500, L500.2500 ####[facility] [address] [place], [address] RDW SD 53.7 fl High 35.1-43.9 [facility] Comment on above: Performed By: #### L 100.0500, L500.2500 ####[facility] [address] [place], [address] WBC (Bld) [#/Vol] 10.1 10*3/uL Normal 4.4-11.0 [facility] Comment on above: Performed By: #### L 100.0500, L500.2500 ####[facility] [address] [place], [address] Basic Metabolic Profile (BMP )on 05-08-2024 BUN/CRE 12.0 RATIO Normal 10-20 [facility] Comment on above: Performed By: #### L 500.2500, L100.0500 ####[facility] [address] [place], [address] CA,Total 8.5 mg/dL Normal 8.5-10.1 [facility] Comment on above: Performed By: #### L 500.2500, L100.0500 ####[facility] [address] [place], [address] Chloride [Moles/Vol] 99 mmol/L Normal 98-107 [facility] Comment on above: Performed By: #### L 500.2500, L100.0500 ####[facility] [address] [place], [address] CO2 [Moles/Vol] 27.0 mmol/L Normal 21.0-32.0 [facility] Comment on above: Performed By: #### L 500.2500, L100.0500 ####[facility] [address] [place], [address] Creatinine [Mass/Vol] 6.26 mg/dL High 0.70-1.30 [facility] Comment on above: Result Comment: The validity of the calculated GFR GFRAA in patients over70 years has not been determined. Clinical correlation isessential. Performed By: #### L 500.2500, L100.0500 ####[facility] [address] [place], [address] ECRCL 9.02 ml/min Normal [facility] Comment on above: Performed By: #### L 500.2500, L100.0500 ####[facility] [address] [place], [address] EST GFR - AA 11 mL/min Low >60 [facility] Comment on above: Result Comment: Afri can Angolan GFR Calc Performed By: #### L 500.2500, L100.0500 ####[facility] [address] [place], [address] GAP 7 Normal 5-15 [facility] Comment on above: Performed By: #### L 500.2500, L100.0500 ####[facility] [address] [place], [address] GFR/1.73 sq M.predicted among non-blacks MDRD (S/P/Bld) [Vol rate/Area] 9 mL/min/{1.73_m2} Low >60 [facility] Comment on above: Result Comment: Non- GFR Calc Performed By: #### L 500.2500, L100.0500 ####[facility] [address] [place], [address] Glucose [Mass/Vol] 198 mg/dL High 74-106 [facility] Comment on above: Result Comment: Fast ing Glucose result greater than or equal to 126 mg/dLsuggests DIABETES MELLITUS per A.D.A. criteria. Performed By: #### L 500.2500, L100.0500 ####[facility] [address] [place], [address] Potassium [Moles/Vol] 4.9 mmol/L Normal 3.5-5.1 [facility] Comment on above: Performed By: #### L 500.2500, L100.0500 ####[facility] [address] [place], [address] Sodium [Moles/Vol] 133 mmol/L Low 136-145 [facility] Comment on above: Performed By: #### L 500.2500, L100.0500 ####[facility] [address] [place], [address] Urea nitrogen [Mass/Vol] 75 mg/dL High 7-18 [facility] Comment on above: Performed By: #### L 500.2500, L100.0500 ####[facility] [address] [place], [address] Bedside Glucoseon 05-08-2024 FINGERSTICK GLU 154 mg/dL High 74-106 [facility] Comment on above: Result Comment: FANG VAZQUEZ OF PATIENT CARE PER NURSING PROTOCOL Performed By: #### L 501.080 ####[facility] [address] [place], [address] FINGERSTICK GLU 212 mg/dL High 74-106 [facility] Comment on above: Result Comment: FANG GEMENT OF PATIENT CARE PER NURSING PROTOCOL Performed By: #### L 501.080 ####[facility] [address] [place], [address] FINGERSTICK GLU 194 mg/dL High 74-106 [facility] Comment on above: Result Comment: FANG GEMENT OF PATIENT CARE PER NURSING PROTOCOL Performed By: #### L 501.080 ####[facility] [address] [place], [address] CBC-Complete Blood Cnt No Di ffon 05-08-2024 Erythrocyte distribution width (RBC) [Ratio] 14.9 % High 11.6-14.6 [facility] Comment on above: Performed By: #### L 500.2500, L100.0500 ####[facility] [address] [place], [address] Hematocrit (Bld) [Volume fraction] 29.5 % Low 40-54 [facility] Comment on above: Performed By: #### L 500.2500, L100.0500 ####[facility] [address] [place], [address] Hemoglobin (Bld) [Mass/Vol] 8.8 g/dL Low 13.0-16.5 [facility] Comment on above: Performed By: #### L 500.2500, L100.0500 ####[facility] [address] [place], [address] MCH (RBC) [Entitic mass] 28.9 pg Normal 27.0-32.0 [facility] Comment on above: Performed By: #### L 500.2500, L100.0500 ####[facility] [address] [place], [address] MCHC (RBC) [Mass/Vol] 29.8 g/dL Low 32-36 [facility] Comment on above: Performed By: #### L 500.2500, L100.0500 ####[facility] [address] [place], [address] MCV (RBC) [Entitic vol] 97.0 fL High 80-94 [facility] Comment on above: Performed By: #### L 500.2500, L100.0500 ####[facility] [address] [place], [address] Platelet mean volume (Bld) [Entitic vol] 11.3 fL Normal 6.2-12.0 [facility] Comment on above: Performed By: #### L 500.2500, L100.0500 ####[facility] [address] [place], [address] Platelets (Bld) [#/Vol] 210 10*3/uL Normal 150-450 [facility] Comment on above: Performed By: #### L 500.2500, L100.0500 ####[facility] [address] [place], [address] RBC (Bld) [#/Vol] 3.04 10*6/uL Low 4.6-6.2 [facility] Comment on above: Performed By: #### L 500.2500, L100.0500 ####[facility] [address] [place], [address] RDW SD 52.8 fl High 35.1-43.9 [facility] Comment on above: Performed By: #### L 500.2500, L100.0500 ####[facility] [address] [place], [address] WBC (Bld) [#/Vol] 9.7 10*3/uL Normal 4.4-11.0 [facility] Comment on above: Performed By: #### L 500.2500, L100.0500 ####[facility] [address] [place], [address] Consultation - Infectious Dx on 05-08-2024 Consultation - Infectious Dx Normal [facility] Gram Stainon 05-08-2024 GS COLLECTED IN OR RIGH T HALLUX AND 1ST METATARSAL Gram Stain Rare White Blood Cells Rare Gram positive cocci No Epithelial cells Normal [facility] Comment on above: Performed By: #### M 100.2000, M100.3000, M100.4001 ####[facility] [address] [place], [address] Basic Metabolic Profile (BMP )on 05-07-2024 BUN/CRE 12.3 RATIO Normal 10-20 [facility] Comment on above: Performed By: #### L 500.2500, L100.0500 ####[facility] [address] [place], [address] CA,Total 8.7 mg/dL Normal 8.5-10.1 [facility] Comment on above: Performed By: #### L 500.2500, L100.0500 ####[facility] [address] [place], [address] Chloride [Moles/Vol] 100 mmol/L Normal 98-107 [facility] Comment on above: Performed By: #### L 500.2500, L100.0500 ####[facility] [address] [place], [address] CO2 [Moles/Vol] 28.0 mmol/L Normal 21.0-32.0 [facility] Comment on above: Performed By: #### L 500.2500, L100.0500 ####[facility] [address] [place], [address] Creatinine [Mass/Vol] 5.45 mg/dL High 0.70-1.30 [facility] Comment on above: Result Comment: The validity of the calculated GFR GFRAA in patients over70 years has not been determined. Clinical correlation isessential. Performed By: #### L 500.2500, L100.0500 ####[facility] [address] [place], [address] ECRCL 10.36 ml/min Normal [facility] Comment on above: Performed By: #### L 500.2500, L100.0500 ####[facility] [address] [place], [address] EST GFR - AA 13 mL/min Low >60 [facility] Comment on above: Result Comment: Afri can Angolan GFR Calc Performed By: #### L 500.2500, L100.0500 ####[facility] [address] [place], [address] GAP 6 Normal 5-15 [facility] Comment on above: Performed By: #### L 500.2500, L100.0500 ####[facility] [address] [place], [address] GFR/1.73 sq M.predicted among non-blacks MDRD (S/P/Bld) [Vol rate/Area] 11 mL/min/{1.73_m2} Low >60 [facility] Comment on above: Result Comment: Non- GFR Calc Performed By: #### L 500.2500, L100.0500 ####[facility] [address] [place], [address] Glucose [Mass/Vol] 131 mg/dL High 74-106 [facility] Comment on above: Result Comment: Fast ing Glucose result greater than or equal to 126 mg/dLsuggests DIABETES MELLITUS per A.D.A. criteria. Performed By: #### L 500.2500, L100.0500 ####[facility] [address] [place], [address] Potassium [Moles/Vol] 4.6 mmol/L Normal 3.5-5.1 [facility] Comment on above: Performed By: #### L 500.2500, L100.0500 ####[facility] [address] [place], [address] Sodium [Moles/Vol] 134 mmol/L Low 136-145 [facility] Comment on above: Performed By: #### L 500.2500, L100.0500 ####[facility] [address] [place], [address] Urea nitrogen [Mass/Vol] 67 mg/dL High 7-18 [facility] Comment on above: Performed By: #### L 500.2500, L100.0500 ####[facility] [address] [place], [address] Bedside Glucoseon 05-07-2024 FINGERSTICK GLU 148 mg/dL High 74-106 [facility] Comment on above: Result Comment: FANG GEMENT OF PATIENT CARE PER NURSING PROTOCOL Performed By: #### L 501.080 ####[facility] [address] [place], [address] FINGERSTICK GLU 102 mg/dL Normal 74-106 [facility] Comment on above: Result Comment: FANG GEMENT OF PATIENT CARE PER NURSING PROTOCOL Performed By: #### L 501.080 ####[facility] [address] [place], [address] FINGERSTICK GLU 120 mg/dL High 74-106 [facility] Comment on above: Result Comment: FANG GEMENT OF PATIENT CARE PER NURSING PROTOCOL Performed By: #### L 501.080 ####[facility] [address] [place], [address] CBC-Complete Blood Cnt No Di ffon 05-07-2024 Erythrocyte distribution width (RBC) [Ratio] 15.0 % High 11.6-14.6 [facility] Comment on above: Performed By: #### L 500.2500, L100.0500 ####[facility] [address] [place], [address] Hematocrit (Bld) [Volume fraction] 29.8 % Low 40-54 [facility] Comment on above: Performed By: #### L 500.2500, L100.0500 ####[facility] [address] [place], [address] Hemoglobin (Bld) [Mass/Vol] 9.1 g/dL Low 13.0-16.5 [facility] Comment on above: Performed By: #### L 500.2500, L100.0500 ####[facility] [address] [place], [address] MCH (RBC) [Entitic mass] 29.6 pg Normal 27.0-32.0 [facility] Comment on above: Performed By: #### L 500.2500, L100.0500 ####[facility] [address] [place], [address] MCHC (RBC) [Mass/Vol] 30.5 g/dL Low 32-36 [facility] Comment on above: Performed By: #### L 500.2500, L100.0500 ####[facility] [address] [place], [address] MCV (RBC) [Entitic vol] 97.1 fL High 80-94 [facility] Comment on above: Performed By: #### L 500.2500, L100.0500 ####[facility] [address] [place], [address] Platelet mean volume (Bld) [Entitic vol] 11.0 fL Normal 6.2-12.0 [facility] Comment on above: Performed By: #### L 500.2500, L100.0500 ####[facility] [address] [place], [address] Platelets (Bld) [#/Vol] 223 10*3/uL Normal 150-450 [facility] Comment on above: Performed By: #### L 500.2500, L100.0500 ####[facility] [address] [place], [address] RBC (Bld) [#/Vol] 3.07 10*6/uL Low 4.6-6.2 [facility] Comment on above: Performed By: #### L 500.2500, L100.0500 ####[facility] [address] [place], [address] RDW SD 53.1 fl High 35.1-43.9 [facility] Comment on above: Performed By: #### L 500.2500, L100.0500 ####[facility] [address] [place], [address] WBC (Bld) [#/Vol] 8.1 10*3/uL Normal 4.4-11.0 [facility] Comment on above: Performed By: #### L 500.2500, L100.0500 ####[facility] [address] [place], [address] Decalcification bone/plaqueo n 05-07-2024 Decalcification bone/plaque Normal [facility] Comment on above: Performed By: #### P DEC ####[facility] [address] [place], [address] Foot 2 Viewson 05-07-2024 Foot [address] [facility] MR/POSTOP.ANEon 05-07-2024 MR/POSTOP.ANE Normal [facility] MR/LWTULYIP0ym 05-07-2024 MR/POSTOPAN2 Normal [facility] Operative Reporton Operative Report Normal [facility] Basic Metabolic Profile (BMP )on 05-06-2024 BUN/CRE 11.3 RATIO Normal 10-20 [facility] Comment on above: Performed By: #### L 500.2500, L100.0500 ####[facility] [address] [place], [address] CA,Total 8.9 mg/dL Normal 8.5-10.1 [facility] Comment on above: Performed By: #### L 500.2500, L100.0500 ####[facility] [address] [place], [address] Chloride [Moles/Vol] 99 mmol/L Normal 98-107 [facility] Comment on above: Performed By: #### L 500.2500, L100.0500 ####[facility] [address] [place], [address] CO2 [Moles/Vol] 27.0 mmol/L Normal 21.0-32.0 [facility] Comment on above: Performed By: #### L 500.2500, L100.0500 ####[facility] [address] [place], [address] Creatinine [Mass/Vol] 4.26 mg/dL High 0.70-1.30 [facility] Comment on above: Result Comment: The validity of the calculated GFR GFRAA in patients over70 years has not been determined. Clinical correlation isessential. Performed By: #### L 500.2500, L100.0500 ####[facility] [address] [place], [address] ECRCL 13.25 ml/min Normal [facility] Comment on above: Performed By: #### L 500.2500, L100.0500 ####[facility] [address] [place], [address] EST GFR - AA 17 mL/min Low >60 [facility] Comment on above: Result Comment: Afri can Angolan GFR Calc Performed By: #### L 500.2500, L100.0500 ####[facility] [address] [place], [address] GAP 7 Normal 5-15 [facility] Comment on above: Performed By: #### L 500.2500, L100.0500 ####[facility] [address] [place], [address] GFR/1.73 sq M.predicted among non-blacks MDRD (S/P/Bld) [Vol rate/Area] 14 mL/min/{1.73_m2} Low >60 [facility] Comment on above: Result Comment: Non- GFR Calc Performed By: #### L 500.2500, L100.0500 ####[facility] [address] [place], [address] Glucose [Mass/Vol] 181 mg/dL High 74-106 [facility] Comment on above: Result Comment: Fast ing Glucose result greater than or equal to 126 mg/dLsuggests DIABETES MELLITUS per A.D.A. criteria. Performed By: #### L 500.2500, L100.0500 ####[facility] [address] [place], [address] Potassium [Moles/Vol] 4.3 mmol/L Normal 3.5-5.1 [facility] Comment on above: Performed By: #### L 500.2500, L100.0500 ####[facility] [address] [place], [address] Sodium [Moles/Vol] 133 mmol/L Low 136-145 [facility] Comment on above: Performed By: #### L 500.2500, L100.0500 ####[facility] [address] [place], [address] Urea nitrogen [Mass/Vol] 48 mg/dL High 7-18 [facility] Comment on above: Performed By: #### L 500.2500, L100.0500 ####[facility] [address] [place], [address] Bedside Glucoseon 05-06-2024 FINGERSTICK GLU 215 mg/dL High 74-106 [facility] Comment on above: Result Comment: FANG GEMENT OF PATIENT CARE PER NURSING PROTOCOL Performed By: #### L 501.080 ####[facility] [address] [place], [address] FINGERSTICK GLU 142 mg/dL High 74-106 [facility] Comment on above: Result Comment: FANG GEMENT OF PATIENT CARE PER NURSING PROTOCOL Performed By: #### L 501.080 ####[facility] [address] [place], [address] FINGERSTICK GLU 228 mg/dL High 74-106 [facility] Comment on above: Result Comment: FANG GEMENT OF PATIENT CARE PER NURSING PROTOCOL Performed By: #### L 501.080 ####[facility] [address] [place], [address] CBC-Complete Blood Cnt No Di ffon 05-06-2024 Erythrocyte distribution width (RBC) [Ratio] 15.1 % High 11.6-14.6 [facility] Comment on above: Performed By: #### L 500.2500, L100.0500 ####[facility] [address] [place], [address] Hematocrit (Bld) [Volume fraction] 32.3 % Low 40-54 [facility] Comment on above: Performed By: #### L 500.2500, L100.0500 ####[facility] [address] [place], [address] Hemoglobin (Bld) [Mass/Vol] 9.7 g/dL Low 13.0-16.5 [facility] Comment on above: Performed By: #### L 500.2500, L100.0500 ####[facility] [address] [place], [address] MCH (RBC) [Entitic mass] 29.2 pg Normal 27.0-32.0 [facility] Comment on above: Performed By: #### L 500.2500, L100.0500 ####[facility] [address] [place], [address] MCHC (RBC) [Mass/Vol] 30.0 g/dL Low 32-36 [facility] Comment on above: Performed By: #### L 500.2500, L100.0500 ####[facility] [address] [place], [address] MCV (RBC) [Entitic vol] 97.3 fL High 80-94 [facility] Comment on above: Performed By: #### L 500.2500, L100.0500 ####[facility] [address] [place], [address] Platelet mean volume (Bld) [Entitic vol] 11.1 fL Normal 6.2-12.0 [facility] Comment on above: Performed By: #### L 500.2500, L100.0500 ####[facility] [address] [place], [address] Platelets (Bld) [#/Vol] 238 10*3/uL Normal 150-450 [facility] Comment on above: Performed By: #### L 500.2500, L100.0500 ####[facility] [address] [place], [address] RBC (Bld) [#/Vol] 3.32 10*6/uL Low 4.6-6.2 [facility] Comment on above: Performed By: #### L 500.2500, L100.0500 ####[facility] [address] [place], [address] RDW SD 54.1 fl High 35.1-43.9 [facility] Comment on above: Performed By: #### L 500.2500, L100.0500 ####[facility] [address] [place], [address] WBC (Bld) [#/Vol] 8.5 10*3/uL Normal 4.4-11.0 [facility] Comment on above: Performed By: #### L 500.2500, L100.0500 ####[facility] [address] [place], [address] Basic Metabolic Profile (BMP )on 05-05-2024 BUN/CRE 9.2 RATIO Low 10-20 [facility] Comment on above: Performed By: #### L 100.0100, L500.2500 ####[facility] [address] [place], [address] CA,Total 8.9 mg/dL Normal 8.5-10.1 [facility] Comment on above: Performed By: #### L 100.0100, L500.2500 ####[facility] [address] [place], [address] Chloride [Moles/Vol] 95 mmol/L Low 98-107 [facility] Comment on above: Performed By: #### L 100.0100, L500.2500 ####[facility] [address] [place], [address] CO2 [Moles/Vol] 30.0 mmol/L Normal 21.0-32.0 [facility] Comment on above: Performed By: #### L 100.0100, L500.2500 ####[facility] [address] [place], [address] Creatinine [Mass/Vol] 5.32 mg/dL High 0.70-1.30 [facility] Comment on above: Result Comment: The validity of the calculated GFR GFRAA in patients over70 years has not been determined. Clinical correlation isessential. Performed By: #### L 100.0100, L500.2500 ####[facility] [address] [place], [address] ECRCL 10.63 ml/min Normal [facility] Comment on above: Performed By: #### L 100.0100, L500.2500 ####[facility] [address] [place], [address] EST GFR - AA 13 mL/min Low >60 [facility] Comment on above: Result Comment: Afri can Angolan GFR Calc Performed By: #### L 100.0100, L500.2500 ####[facility] [address] [place], [address] GAP 11 Normal 5-15 [facility] Comment on above: Performed By: #### L 100.0100, L500.2500 ####[facility] [address] [place], [address] GFR/1.73 sq M.predicted among non-blacks MDRD (S/P/Bld) [Vol rate/Area] 11 mL/min/{1.73_m2} Low >60 [facility] Comment on above: Result Comment: Non- GFR Calc Performed By: #### L 100.0100, L500.2500 ####[facility] [address] [place], [address] Glucose [Mass/Vol] 111 mg/dL High 74-106 [facility] Comment on above: Result Comment: Fast ing Glucose result from 100 to 125 mg/dLsuggests IMPAIRED HOMEOSTASIS per A.D.A. criteria. Performed By: #### L 100.0100, L500.2500 ####[facility] [address] [place], [address] Potassium [Moles/Vol] 3.9 mmol/L Normal 3.5-5.1 [facility] Comment on above: Performed By: #### L 100.0100, L500.2500 ####[facility] [address] [place], [address] Sodium [Moles/Vol] 135 mmol/L Low 136-145 [facility] Comment on above: Performed By: #### L 100.0100, L500.2500 ####[facility] [address] [place], [address] Urea nitrogen [Mass/Vol] 49 mg/dL High 7-18 [facility] Comment on above: Performed By: #### L 100.0100, L500.2500 ####[facility] [address] [place], [address] Bedside Glucoseon 05-05-2024 FINGERSTICK GLU 155 mg/dL High 74-106 [facility] Comment on above: Result Comment: FANG GEMENT OF PATIENT CARE PER NURSING PROTOCOL Performed By: #### L 501.080 ####[facility] [address] [place], [address] FINGERSTICK GLU 210 mg/dL High 74-106 [facility] Comment on above: Result Comment: FANG GEMENT OF PATIENT CARE PER NURSING PROTOCOL Performed By: #### L 501.080 ####[facility] [address] [place], [address] FINGERSTICK GLU 202 mg/dL High 74-106 [facility] Comment on above: Result Comment: FANG GEMENT OF PATIENT CARE PER NURSING PROTOCOL Performed By: #### L 501.080 ####[facility] [address] [place], [address] FINGERSTICK GLU 136 mg/dL High 74-106 [facility] Comment on above: Result Comment: FANG GEMENT OF PATIENT CARE PER NURSING PROTOCOL Performed By: #### L 501.080 ####[facility] [address] [place], [address] FINGERSTICK GLU 171 mg/dL High 74-106 [facility] Comment on above: Result Comment: FANG GEMENT OF PATIENT CARE PER NURSING PROTOCOL Performed By: #### L 501.080 ####[facility] [address] [place], [address] CBC W/Diff, Automatedon 04-22 Absolute Lymph 2.35 X10 3/uL Normal 0.83-4.51 [facility] Comment on above: Performed By: #### L 100.0100, L500.2500 ####[facility] [address] [place], [address] Absolute Neut 6.8 X10 3/uL Normal 2.0-7.7 [facility] Comment on above: Performed By: #### L 100.0100, L500.2500 ####[facility] [address] [place], [address] Basophils/100 WBC (Bld) 0.8 % Normal 0-1 [facility] Comment on above: Performed By: #### L 100.0100, L500.2500 ####[facility] [address] [place], [address] Eosinophils/100 WBC (Bld) 3.1 % Normal 0-5 [facility] Comment on above: Performed By: #### L 100.0100, L500.2500 ####[facility] [address] [place], [address] Erythrocyte distribution width (RBC) [Ratio] 15.1 % High 11.6-14.6 [facility] Comment on above: Performed By: #### L 100.0100, L500.2500 ####[facility] [address] [place], [address] Hematocrit (Bld) [Volume fraction] 31.1 % Low 40-54 [facility] Comment on above: Performed By: #### L 100.0100, L500.2500 ####[facility] [address] [place], [address] Hemoglobin (Bld) [Mass/Vol] 9.4 g/dL Low 13.0-16.5 [facility] Comment on above: Performed By: #### L 100.0100, L500.2500 ####[facility] [address] [place], [address] IG% 0.600 Normal 0.0-0.9 [facility] Comment on above: Result Comment: IG% - Immature Granulocytes (promyelocytes, myelocytes andmetamyelocytes) > 1% indicates that a LEFT SHIFT is Present. Performed By: #### L 100.0100, L500.2500 ####[facility] [address] [place], [address] Lymphocytes/100 WBC (Bld) 22.1 % Normal 19-41 [facility] Comment on above: Performed By: #### L 100.0100, L500.2500 ####[facility] [address] [place], [address] MCH (RBC) [Entitic mass] 28.8 pg Normal 27.0-32.0 [facility] Comment on above: Performed By: #### L 100.0100, L500.2500 ####[facility] [address] [place], [address] MCHC (RBC) [Mass/Vol] 30.2 g/dL Low 32-36 [facility] Comment on above: Performed By: #### L 100.0100, L500.2500 ####[facility] [address] [place], [address] MCV (RBC) [Entitic vol] 95.4 fL High 80-94 [facility] Comment on above: Performed By: #### L 100.0100, L500.2500 ####[facility] [address] [place], [address] Monocytes/100 WBC (Bld) 9.2 % Normal 0-10 [facility] Comment on above: Performed By: #### L 100.0100, L500.2500 ####[facility] [address] [place], [address] Neutrophils/100 WBC (Bld) 64.2 % Normal 47-70 [facility] Comment on above: Performed By: #### L 100.0100, L500.2500 ####[facility] [address] [place], [address] Nucleated RBC (Bld) [#/Vol] 0 10*3/uL Normal 0-5 [facility] Comment on above: Performed By: #### L 100.0100, L500.2500 ####[facility] [address] [place], [address] Platelet mean volume (Bld) [Entitic vol] 11.2 fL Normal 6.2-12.0 [facility] Comment on above: Performed By: #### L 100.0100, L500.2500 ####[facility] [address] [place], [address] Platelets (Bld) [#/Vol] 263 10*3/uL Normal 150-450 [facility] Comment on above: Performed By: #### L 100.0100, L500.2500 ####[facility] [address] [place], [address] RBC (Bld) [#/Vol] 3.26 10*6/uL Low 4.6-6.2 [facility] Comment on above: Performed By: #### L 100.0100, L500.2500 ####[facility] [address] [place], [address] RDW SD 52.6 fl High 35.1-43.9 [facility] Comment on above: Performed By: #### L 100.0100, L500.2500 ####[facility] [address] [place], [address] WBC (Bld) [#/Vol] 10.6 10*3/uL Normal 4.4-11.0 [facility] Comment on above: Performed By: #### L 100.0100, L500.2500 ####[facility] [address] [place], [address] Consultation - Nephrologyon 05-05-2024 Consultation - Nephrology Normal [facility] 12 Lead EKGon 05-04-[address] [facility] Ankle Brachial Indexon 05-04 Ankle Brachial Index Normal [facility] Basic Metabolic Profile (BMP )on 05-04-2024 BUN/CRE 6.8 RATIO Low 10-20 [facility] Comment on above: Performed By: #### L 100.0100, L500.2500, L501.6710, L101.9900 ####[facility] [address] [place], [address] CA,Total 9.4 mg/dL Normal 8.5-10.1 [facility] Comment on above: Performed By: #### L 100.0100, L500.2500, L501.6710, L101.9900 ####[facility] [address] [place], [address] Chloride [Moles/Vol] 94 mmol/L Low 98-107 [facility] Comment on above: Performed By: #### L 100.0100, L500.2500, L501.6710, L101.9900 ####[facility] [address] [place], [address] CO2 [Moles/Vol] 31.0 mmol/L Normal 21.0-32.0 [facility] Comment on above: Performed By: #### L 100.0100, L500.2500, L501.6710, L101.9900 ####[facility] [address] [place], [address] Creatinine [Mass/Vol] 4.58 mg/dL High 0.70-1.30 [facility] Comment on above: Result Comment: The validity of the calculated GFR GFRAA in patients over70 years has not been determined. Clinical correlation isessential. Performed By: #### L 100.0100, L500.2500, L501.6710, L101.9900 ####[facility] [address] [place], [address] ECRCL 13.00 ml/min Normal [facility] Comment on above: Performed By: #### L 100.0100, L500.2500, L501.6710, L101.9900 ####[facility] [address] [place], [address] EST GFR - AA 16 mL/min Low >60 [facility] Comment on above: Result Comment: Afri can Angolan GFR Calc Performed By: #### L 100.0100, L500.2500, L501.6710, L101.9900 ####[facility] [address] [place], [address] GAP 7 Normal 5-15 [facility] Comment on above: Performed By: #### L 100.0100, L500.2500, L501.6710, L101.9900 ####[facility] [address] [place], [address] GFR/1.73 sq M.predicted among non-blacks MDRD (S/P/Bld) [Vol rate/Area] 13 mL/min/{1.73_m2} Low >60 [facility] Comment on above: Result Comment: Non- GFR Calc Performed By: #### L 100.0100, L500.2500, L501.6710, L101.9900 ####[facility] [address] [place], [address] Glucose [Mass/Vol] 297 mg/dL High 74-106 [facility] Comment on above: Result Comment: Gluc ose result greater than or equal to 200 mg/dLsuggests DIABETES MELLITUS per A.D.A. criteria. Performed By: #### L 100.0100, L500.2500, L501.6710, L101.9900 ####[facility] [address] [place], [address] Potassium [Moles/Vol] 3.7 mmol/L Normal 3.5-5.1 [facility] Comment on above: Performed By: #### L 100.0100, L500.2500, L501.6710, L101.9900 ####[facility] [address] [place], [address] Sodium [Moles/Vol] 133 mmol/L Low 136-145 [facility] Comment on above: Performed By: #### L 100.0100, L500.2500, L501.6710, L101.9900 ####[facility] [address] [place], [address] Urea nitrogen [Mass/Vol] 31 mg/dL High 7-18 [facility] Comment on above: Performed By: #### L 100.0100, L500.2500, L501.6710, L101.9900 ####[facility] [address] [place], [address] Bedside Glucoseon 05-04-2024 FINGERSTICK GLU 342 mg/dL High 74-106 [facility] Comment on above: Result Comment: FANG ROLANDOENT OF PATIENT CARE PER NURSING PROTOCOL Performed By: #### L 501.080 ####[facility] [address] [place], [address] CBC W/Diff, Automatedon 04-22 Absolute Lymph 2.08 X10 3/uL Normal 0.83-4.51 [facility] Comment on above: Performed By: #### L 100.0100, L500.2500, L501.6710, L101.9900 ####[facility] [address] [place], [address] Absolute Neut 5.8 X10 3/uL Normal 2.0-7.7 [facility] Comment on above: Performed By: #### L 100.0100, L500.2500, L501.6710, L101.9900 ####[facility] [address] [place], [address] Basophils/100 WBC (Bld) 1.0 % Normal 0-1 [facility] Comment on above: Performed By: #### L 100.0100, L500.2500, L501.6710, L101.9900 ####[facility] [address] [place], [address] Eosinophils/100 WBC (Bld) 2.4 % Normal 0-5 [facility] Comment on above: Performed By: #### L 100.0100, L500.2500, L501.6710, L101.9900 ####[facility] [address] [place], [address] Erythrocyte distribution width (RBC) [Ratio] 15.4 % High 11.6-14.6 [facility] Comment on above: Performed By: #### L 100.0100, L500.2500, L501.6710, L101.9900 ####[facility] [address] [place], [address] Hematocrit (Bld) [Volume fraction] 36.7 % Low 40-54 [facility] Comment on above: Performed By: #### L 100.0100, L500.2500, L501.6710, L101.9900 ####[facility] [address] [place], [address] Hemoglobin (Bld) [Mass/Vol] 11.3 g/dL Low 13.0-16.5 [facility] Comment on above: Performed By: #### L 100.0100, L500.2500, L501.6710, L101.9900 ####[facility] [address] [place], [address] IG% 0.800 Normal 0.0-0.9 [facility] Comment on above: Result Comment: IG% - Immature Granulocytes (promyelocytes, myelocytes andmetamyelocytes) > 1% indicates that a LEFT SHIFT is Present. Performed By: #### L 100.0100, L500.2500, L501.6710, L101.9900 ####[facility] [address] [place], [address] Lymphocytes/100 WBC (Bld) 22.5 % Normal 19-41 [facility] Comment on above: Performed By: #### L 100.0100, L500.2500, L501.6710, L101.9900 ####[facility] [address] [place], [address] MCH (RBC) [Entitic mass] 29.3 pg Normal 27.0-32.0 [facility] Comment on above: Performed By: #### L 100.0100, L500.2500, L501.6710, L101.9900 ####[facility] [address] [place], [address] MCHC (RBC) [Mass/Vol] 30.8 g/dL Low 32-36 [facility] Comment on above: Performed By: #### L 100.0100, L500.2500, L501.6710, L101.9900 ####[facility] [address] [place], [address] MCV (RBC) [Entitic vol] 95.1 fL High 80-94 [facility] Comment on above: Performed By: #### L 100.0100, L500.2500, L501.6710, L101.9900 ####[facility] [address] [place], [address] Monocytes/100 WBC (Bld) 10.2 % High 0-10 [facility] Comment on above: Performed By: #### L 100.0100, L500.2500, L501.6710, L101.9900 ####[facility] [address] [place], [address] Neutrophils/100 WBC (Bld) 63.1 % Normal 47-70 [facility] Comment on above: Performed By: #### L 100.0100, L500.2500, L501.6710, L101.9900 ####[facility] [address] [place], [address] Nucleated RBC (Bld) [#/Vol] 0 10*3/uL Normal 0-5 [facility] Comment on above: Performed By: #### L 100.0100, L500.2500, L501.6710, L101.9900 ####[facility] [address] [place], [address] Platelet mean volume (Bld) [Entitic vol] 11.4 fL Normal 6.2-12.0 [facility] Comment on above: Performed By: #### L 100.0100, L500.2500, L501.6710, L101.9900 ####[facility] [address] [place], [address] Platelets (Bld) [#/Vol] 288 10*3/uL Normal 150-450 [facility] Comment on above: Performed By: #### L 100.0100, L500.2500, L501.6710, L101.9900 ####[facility] [address] [place], [address] RBC (Bld) [#/Vol] 3.86 10*6/uL Low 4.6-6.2 [facility] Comment on above: Performed By: #### L 100.0100, L500.2500, L501.6710, L101.9900 ####[facility] [address] [place], [address] RDW SD 53.0 fl High 35.1-43.9 [facility] Comment on above: Performed By: #### L 100.0100, L500.2500, L501.6710, L101.9900 ####[facility] [address] [place], [address] WBC (Bld) [#/Vol] 9.2 10*3/uL Normal 4.4-11.0 [facility] Comment on above: Performed By: #### L 100.0100, L500.2500, L501.6710, L101.9900 ####[facility] [address] [place], [address] CRPon 05-04-2024 C-REACTIVE PROT 72.90 mg/L High 0.0-3.0 [facility] Comment on above: Result Comment: C-Re active Protein (CRP) provides useful information for thediagnosis, therapy and monitoring of inflammatory processesand associated diseases. For the evaluation of Relative Riskfor Cardiovascular Disease, a High Sensitivity CRP (HSCRP)should be ordered. Performed By: #### L 100.0100, L500.2500, L501.6710, L101.9900 ####[facility] [address] [place], [address] Consultation - Surgicalon Consultation - Surgical Normal [facility] Emergency Department Summary on 05-04-2024 Emergency Department Summary Normal [facility] Erythrocyte Sed Rateon 05-04 SED RATE 81 mm/hr High 0-20 [facility] Comment on above: Performed By: #### L 100.0100, L500.2500, L501.6710, L101.9900 ####[facility] [address] [place], [address] Foot min 3 Viewson 4 Foot min [address] [facility] H AND P Exam - Hospitaliston 05-04-2024 H&P Exam - Hospitalist Normal [facility] US Art Duplex Unilat Lower E xton 05-04-2024 US Art Duplex Unilat Lower Ext Normal [facility] Basic Metabolic Profile (BMP )on 05-02-2024 BUN/CRE 6.9 RATIO Low 10-20 [facility] Comment on above: Order Comment: 107.2 Performed By: #### L 100.0500, L500.2500 ####[facility] [address] [place], [address] CA,Total 8.8 mg/dL Normal 8.5-10.1 [facility] Comment on above: Order Comment: 107.2 Performed By: #### L 100.0500, L500.2500 ####[facility] [address] [place], [address] Chloride [Moles/Vol] 96 mmol/L Low 98-107 [facility] Comment on above: Order Comment: 107.2 Performed By: #### L 100.0500, L500.2500 ####[facility] [address] [place], [address] CO2 [Moles/Vol] 30.0 mmol/L Normal 21.0-32.0 [facility] Comment on above: Order Comment: 107.2 Performed By: #### L 100.0500, L500.2500 ####[facility] [address] [place], [address] Creatinine [Mass/Vol] 4.34 mg/dL High 0.70-1.30 [facility] Comment on above: Order Comment: 107.2 Result Comment: The validity of the calculated GFR GFRAA in patients over70 years has not been determined. Clinical correlation isessential. Performed By: #### L 100.0500, L500.2500 ####[facility] [address] [place], [address] EST GFR - AA 17 mL/min Low >60 [facility] Comment on above: Order Comment: 107.2 Result Comment: Afri can Angolan GFR Calc Performed By: #### L 100.0500, L500.2500 ####[facility] [address] [place], [address] GAP 7 Normal 5-15 [facility] Comment on above: Order Comment: 107.2 Performed By: #### L 100.0500, L500.2500 ####[facility] [address] [place], [address] GFR/1.73 sq M.predicted among non-blacks MDRD (S/P/Bld) [Vol rate/Area] 14 mL/min/{1.73_m2} Low >60 [facility] Comment on above: Order Comment: 107.2 Result Comment: Non- GFR Calc Performed By: #### L 100.0500, L500.2500 ####[facility] [address] [place], [address] Glucose [Mass/Vol] 138 mg/dL High 74-106 [facility] Comment on above: Order Comment: 107.2 Result Comment: Fast ing Glucose result greater than or equal to 126 mg/dLsuggests DIABETES MELLITUS per A.D.A. criteria. Performed By: #### L 100.0500, L500.2500 ####[facility] [address] [place], [address] Potassium [Moles/Vol] 3.6 mmol/L Normal 3.5-5.1 [facility] Comment on above: Order Comment: 107.2 Performed By: #### L 100.0500, L500.2500 ####[facility] [address] [place], [address] Sodium [Moles/Vol] 133 mmol/L Low 136-145 [facility] Comment on above: Order Comment: 107.2 Performed By: #### L 100.0500, L500.2500 ####[facility] [address] [place], [address] Urea nitrogen [Mass/Vol] 30 mg/dL High 7-18 [facility] Comment on above: Order Comment: 107.2 Performed By: #### L 100.0500, L500.2500 ####[facility] [address] [place], [address] CBC-Complete Blood Cnt No Di ffon 05-02-2024 Erythrocyte distribution width (RBC) [Ratio] 15.1 % High 11.6-14.6 [facility] Comment on above: Order Comment: 107.2 Performed By: #### L 100.0500, L500.2500 ####[facility] [address] [place], [address] Hematocrit (Bld) [Volume fraction] 29.9 % Low 40-54 [facility] Comment on above: Order Comment: 107.2 Performed By: #### L 100.0500, L500.2500 ####[facility] [address] [place], [address] Hemoglobin (Bld) [Mass/Vol] 9.6 g/dL Low 13.0-16.5 [facility] Comment on above: Order Comment: 107.2 Performed By: #### L 100.0500, L500.2500 ####[facility] [address] [place], [address] MCH (RBC) [Entitic mass] 30.2 pg Normal 27.0-32.0 [facility] Comment on above: Order Comment: 107.2 Performed By: #### L 100.0500, L500.2500 ####[facility] [address] [place], [address] MCHC (RBC) [Mass/Vol] 32.1 g/dL Normal 32-36 [facility] Comment on above: Order Comment: 107.2 Performed By: #### L 100.0500, L500.2500 ####[facility] [address] [place], [address] MCV (RBC) [Entitic vol] 94.0 fL Normal 80-94 [facility] Comment on above: Order Comment: 107.2 Performed By: #### L 100.0500, L500.2500 ####[facility] [address] [place], [address] Platelet mean volume (Bld) [Entitic vol] 10.9 fL Normal 6.2-12.0 [facility] Comment on above: Order Comment: 107.2 Performed By: #### L 100.0500, L500.2500 ####[facility] [address] [place], [address] Platelets (Bld) [#/Vol] 275 10*3/uL Normal 150-450 [facility] Comment on above: Order Comment: 107.2 Performed By: #### L 100.0500, L500.2500 ####[facility] [address] [place], [address] RBC (Bld) [#/Vol] 3.18 10*6/uL Low 4.6-6.2 [facility] Comment on above: Order Comment: 107.2 Performed By: #### L 100.0500, L500.2500 ####[facility] [address] [place], [address] RDW SD 52.3 fl High 35.1-43.9 [facility] Comment on above: Order Comment: 107.2 Performed By: #### L 100.0500, L500.2500 ####[facility] [address] [place], [address] WBC (Bld) [#/Vol] 8.9 10*3/uL Normal 4.4-11.0 [facility] Comment on above: Order Comment: 107.2 Performed By: #### L 100.0500, L500.2500 ####[facility] [address] [place], [address] Wound Cultureon 05-01-[address] [facility] Comment on above: Performed By: #### M 100.2000, M100.4001, M100.3000 ####[facility] [address] [place], [address] Bedside Glucoseon 04-24-2024 FINGERSTICK GLU 202 mg/dL High [address] [address] Comment on above: Result Comment: FANG GEMENT OF PATIENT CARE PER NURSING PROTOCOL Performed By: #### L 501.080 ####[facility] [address] [place], [address] FINGERSTICK GLU 139 mg/dL High [address] [address] Comment on above: Result Comment: FANG GEMENT OF PATIENT CARE PER NURSING PROTOCOL Performed By: #### L 501.080 ####[facility] [address] [place], [address] FINGERSTICK GLU 153 mg/dL High [address] [address] Comment on above: Result Comment: FANG GEMENT OF PATIENT CARE PER NURSING PROTOCOL Performed By: #### L 501.080 ####[facility] [address] [place], [address] FINGERSTICK GLU 250 mg/dL High [address] [address] Comment on above: Result Comment: FANG GEMENT OF PATIENT CARE PER NURSING PROTOCOL Performed By: #### L 501.080 ####[facility] [address] [place], [address] Bedside Glucoseon 04-23-2024 FINGERSTICK GLU 311 mg/dL High [address] [place] [address] Comment on above: Result Comment: FANG GEMENT OF PATIENT CARE PER NURSING PROTOCOL Performed By: #### L 501.080 ####[facility] [address] [place], [address] FINGERSTICK GLU 252 mg/dL High 74-106 [facility] Comment on above: Result Comment: FANG GEMENT OF PATIENT CARE PER NURSING PROTOCOL Performed By: #### L 501.080 ####[facility] [address] [place], [address] FINGERSTICK GLU 173 mg/dL High 74-106 [facility] Comment on above: Result Comment: FANG GEMENT OF PATIENT CARE PER NURSING PROTOCOL Performed By: #### L 501.080 ####[facility] [address] [place], [address] CNPTOUTREACHon 04-23-2024 CNPTOUTREACH Normal [facility] Basic Metabolic Profile (BMP )on 04-22-2024 BUN/CRE 13.8 RATIO Normal 10-20 [facility] Comment on above: Performed By: #### L 100.0100, L500.2500 ####[facility] [address] [place], [address] CA,Total 8.5 mg/dL Normal 8.5-10.1 [facility] Comment on above: Performed By: #### L 100.0100, L500.2500 ####[facility] [address] [place], [address] Chloride [Moles/Vol] 100 mmol/L Normal 98-107 [facility] Comment on above: Performed By: #### L 100.0100, L500.2500 ####[facility] [address] [place], [address] CO2 [Moles/Vol] 25.0 mmol/L Normal 21.0-32.0 [facility] Comment on above: Performed By: #### L 100.0100, L500.2500 ####[facility] [address] [place], [address] Creatinine [Mass/Vol] 4.80 mg/dL High 0.70-1.30 [facility] Comment on above: Result Comment: The validity of the calculated GFR GFRAA in patients over70 years has not been determined. Clinical correlation isessential. Performed By: #### L 100.0100, L500.2500 ####[facility] [address] [place], [address] ECRCL 12.57 ml/min Normal [facility] Comment on above: Performed By: #### L 100.0100, L500.2500 ####[facility] [address] [place], [address] EST GFR - AA 15 mL/min Low >60 [facility] Comment on above: Result Comment: Afri can Angolan GFR Calc Performed By: #### L 100.0100, L500.2500 ####[facility] [address] [place], [address] GAP 10 Normal 5-15 [facility] Comment on above: Performed By: #### L 100.0100, L500.2500 ####[facility] [address] [place], [address] GFR/1.73 sq M.predicted among non-blacks MDRD (S/P/Bld) [Vol rate/Area] 12 mL/min/{1.73_m2} Low >60 [facility] Comment on above: Result Comment: Non- GFR Calc Performed By: #### L 100.0100, L500.2500 ####[facility] [address] [place], [address] Glucose [Mass/Vol] 66 mg/dL Low 74-106 [facility] Comment on above: Performed By: #### L 100.0100, L500.2500 ####[facility] [address] [place], [address] Potassium [Moles/Vol] 4.1 mmol/L Normal 3.5-5.1 [facility] Comment on above: Performed By: #### L 100.0100, L500.2500 ####[facility] [address] [place], [address] Sodium [Moles/Vol] 135 mmol/L Low 136-145 [facility] Comment on above: Performed By: #### L 100.0100, L500.2500 ####[facility] [address] [place], [address] Urea nitrogen [Mass/Vol] 66 mg/dL High 7-18 [facility] Comment on above: Performed By: #### L 100.0100, L500.2500 ####[facility] [address] [place], [address] Bedside Glucoseon 04-22-2024 FINGERSTICK GLU 290 mg/dL High 74-106 [facility] Comment on above: Result Comment: FANG GEMENT OF PATIENT CARE PER NURSING PROTOCOL Performed By: #### L 501.080 ####[facility] [address] [place], [address] FINGERSTICK GLU 220 mg/dL High 74-106 [facility] Comment on above: Result Comment: FANG GEMENT OF PATIENT CARE PER NURSING PROTOCOL Performed By: #### L 501.080 ####[facility] [address] [place], [address] FINGERSTICK GLU 191 mg/dL High 74-106 [facility] Comment on above: Result Comment: FANG GEMENT OF PATIENT CARE PER NURSING PROTOCOL Performed By: #### L 501.080 ####[facility] [address] [place], [address] FINGERSTICK GLU 54 mg/dL Low 74-106 [facility] Comment on above: Result Comment: FANG GEMENT OF PATIENT CARE PER NURSING PROTOCOL Performed By: #### L 501.080 ####[facility] [address] [place], [address] FINGERSTICK GLU 72 mg/dL Low 74-106 [facility] Comment on above: Result Comment: FANG VAZQUEZ OF PATIENT CARE PER NURSING PROTOCOL Performed By: #### L 501.080 ####[facility] [address] [place], [address] CBC W/Diff, Automatedon 12-0 Absolute Lymph 2.51 X10 3/uL Normal 0.83-4.51 [facility] Comment on above: Performed By: #### L 100.0100, L500.2500 ####[facility] [address] [place], [address] Absolute Neut 11.4 X10 3/uL High 2.0-7.7 [facility] Comment on above: Performed By: #### L 100.0100, L500.2500 ####[facility] [address] [place], [address] Basophils/100 WBC (Bld) 0.5 % Normal 0-1 [facility] Comment on above: Performed By: #### L 100.0100, L500.2500 ####[facility] [address] [place], [address] Eosinophils/100 WBC (Bld) 2.2 % Normal 0-5 [facility] Comment on above: Performed By: #### L 100.0100, L500.2500 ####[facility] [address] [place], [address] Erythrocyte distribution width (RBC) [Ratio] 14.9 % High 11.6-14.6 [facility] Comment on above: Performed By: #### L 100.0100, L500.2500 ####[facility] [address] [place], [address] Hematocrit (Bld) [Volume fraction] 30.1 % Low 40-54 [facility] Comment on above: Performed By: #### L 100.0100, L500.2500 ####[facility] [address] [place], [address] Hemoglobin (Bld) [Mass/Vol] 9.4 g/dL Low 13.0-16.5 [facility] Comment on above: Performed By: #### L 100.0100, L500.2500 ####[facility] [address] [place], [address] IG% 1.700 High 0.0-0.9 [facility] Comment on above: Result Comment: IG% - Immature Granulocytes (promyelocytes, myelocytes andmetamyelocytes) > 1% indicates that a LEFT SHIFT is Present. Performed By: #### L 100.0100, L500.2500 ####[facility] [address] [place], [address] Lymphocytes/100 WBC (Bld) 15.8 % Low 19-41 [facility] Comment on above: Performed By: #### L 100.0100, L500.2500 ####[facility] [address] [place], [address] MCH (RBC) [Entitic mass] 30.1 pg Normal 27.0-32.0 [facility] Comment on above: Performed By: #### L 100.0100, L500.2500 ####[facility] [address] [place], [address] MCHC (RBC) [Mass/Vol] 31.2 g/dL Low 32-36 [facility] Comment on above: Performed By: #### L 100.0100, L500.2500 ####[facility] [address] [place], [address] MCV (RBC) [Entitic vol] 96.5 fL High 80-94 [facility] Comment on above: Performed By: #### L 100.0100, L500.2500 ####[facility] [address] [place], [address] Monocytes/100 WBC (Bld) 8.5 % Normal 0-10 [facility] Comment on above: Performed By: #### L 100.0100, L500.2500 ####[facility] [address] [place], [address] Neutrophils/100 WBC (Bld) 71.3 % High 47-70 [facility] Comment on above: Performed By: #### L 100.0100, L500.2500 ####[facility] [address] [place], [address] Nucleated RBC (Bld) [#/Vol] 0 10*3/uL Normal 0-5 [facility] Comment on above: Performed By: #### L 100.0100, L500.2500 ####[facility] [address] [place], [address] Platelet mean volume (Bld) [Entitic vol] 11.2 fL Normal 6.2-12.0 [facility] Comment on above: Performed By: #### L 100.0100, L500.2500 ####[facility] [address] [place], [address] Platelets (Bld) [#/Vol] 303 10*3/uL Normal 150-450 [facility] Comment on above: Performed By: #### L 100.0100, L500.2500 ####[facility] [address] [place], [address] RBC (Bld) [#/Vol] 3.12 10*6/uL Low 4.6-6.2 [facility] Comment on above: Performed By: #### L 100.0100, L500.2500 ####[facility] [address] [place], [address] RDW SD 52.3 fl High 35.1-43.9 [facility] Comment on above: Performed By: #### L 100.0100, L500.2500 ####[facility] [address] [place], [address] WBC (Bld) [#/Vol] 15.9 10*3/uL High 4.4-11.0 [facility] Comment on above: Performed By: #### L 100.0100, L500.2500 ####[facility] [address] [place], [address] Wound Cultureon 04-22-[address] [facility] Comment on above: Performed By: #### M 100.2000, M100.3000 ####[facility] [address] [place], [address] Basic Metabolic Profile (BMP )on 04-21-2024 BUN/CRE 14.8 RATIO Normal 10-20 [facility] Comment on above: Performed By: #### L 500.2500, L100.0100 ####[facility] [address] [place], [address] CA,Total 8.6 mg/dL Normal 8.5-10.1 [facility] Comment on above: Performed By: #### L 500.2500, L100.0100 ####[facility] [address] [place], [address] Chloride [Moles/Vol] 98 mmol/L Normal 98-107 [facility] Comment on above: Performed By: #### L 500.2500, L100.0100 ####[facility] [address] [place], [address] CO2 [Moles/Vol] 25.0 mmol/L Normal 21.0-32.0 [facility] Comment on above: Performed By: #### L 500.2500, L100.0100 ####[facility] [address] [place], [address] Creatinine [Mass/Vol] 6.13 mg/dL High 0.70-1.30 [facility] Comment on above: Result Comment: The validity of the calculated GFR GFRAA in patients over70 years has not been determined. Clinical correlation isessential. Performed By: #### L 500.2500, L100.0100 ####[facility] [address] [place], [address] ECRCL 10.02 ml/min Normal [facility] Comment on above: Performed By: #### L 500.2500, L100.0100 ####[facility] [address] [place], [address] EST GFR - AA 11 mL/min Low >60 [facility] Comment on above: Result Comment: Afri can Angolan GFR Calc Performed By: #### L 500.2500, L100.0100 ####[facility] [address] [place], [address] GAP 9 Normal 5-15 [facility] Comment on above: Performed By: #### L 500.2500, L100.0100 ####[facility] [address] [place], [address] GFR/1.73 sq M.predicted among non-blacks MDRD (S/P/Bld) [Vol rate/Area] 9 mL/min/{1.73_m2} Low >60 [facility] Comment on above: Result Comment: Non- GFR Calc Performed By: #### L 500.2500, L100.0100 ####[facility] [address] [place], [address] Glucose [Mass/Vol] 123 mg/dL High 74-106 [facility] Comment on above: Result Comment: Fast ing Glucose result from 100 to 125 mg/dLsuggests IMPAIRED HOMEOSTASIS per A.D.A. criteria. Performed By: #### L 500.2500, L100.0100 ####[facility] [address] [place], [address] Potassium [Moles/Vol] 4.4 mmol/L Normal 3.5-5.1 [facility] Comment on above: Performed By: #### L 500.2500, L100.0100 ####[facility] [address] [place], [address] Sodium [Moles/Vol] 132 mmol/L Low 136-145 [facility] Comment on above: Performed By: #### L 500.2500, L100.0100 ####[facility] [address] [place], [address] Urea nitrogen [Mass/Vol] 91 mg/dL High 7-18 [facility] Comment on above: Performed By: #### L 500.2500, L100.0100 ####[facility] [address] [place], [address] Bedside Glucoseon 04-21-2024 FINGERSTICK GLU 158 mg/dL High 74-106 [facility] Comment on above: Result Comment: FANG GEMENT OF PATIENT CARE PER NURSING PROTOCOL Performed By: #### L 501.080 ####[facility] [address] [place], [address] FINGERSTICK GLU 173 mg/dL High 74-106 [facility] Comment on above: Result Comment: FANG GEMENT OF PATIENT CARE PER NURSING PROTOCOL Performed By: #### L 501.080 ####[facility] [address] [place], [address] FINGERSTICK GLU 312 mg/dL High 74-106 [facility] Comment on above: Result Comment: FANG GEMENT OF PATIENT CARE PER NURSING PROTOCOL Performed By: #### L 501.080 ####[facility] [address] [place], [address] FINGERSTICK GLU 103 mg/dL Normal 74-106 [facility] Comment on above: Result Comment: FANG GEMENT OF PATIENT CARE PER NURSING PROTOCOL Performed By: #### L 501.080 ####[facility] [address] [place], [address] CBC W/Diff, Automatedon 11-3 0-2024 Absolute Lymph 2.21 X10 3/uL Normal 0.83-4.51 [facility] Comment on above: Performed By: #### L 500.2500, L100.0100 ####[facility] [address] [place], [address] Absolute Neut 10.9 X10 3/uL High 2.0-7.7 [facility] Comment on above: Performed By: #### L 500.2500, L100.0100 ####[facility] [address] [place], [address] Basophils/100 WBC (Bld) 0.3 % Normal 0-1 [facility] Comment on above: Performed By: #### L 500.2500, L100.0100 ####[facility] [address] [place], [address] Eosinophils/100 WBC (Bld) 2.1 % Normal 0-5 [facility] Comment on above: Performed By: #### L 500.2500, L100.0100 ####[facility] [address] [place], [address] Erythrocyte distribution width (RBC) [Ratio] 14.9 % High 11.6-14.6 [facility] Comment on above: Performed By: #### L 500.2500, L100.0100 ####[facility] [address] [place], [address] Hematocrit (Bld) [Volume fraction] 31.2 % Low 40-54 [facility] Comment on above: Performed By: #### L 500.2500, L100.0100 ####[facility] [address] [place], [address] Hemoglobin (Bld) [Mass/Vol] 9.4 g/dL Low 13.0-16.5 [facility] Comment on above: Performed By: #### L 500.2500, L100.0100 ####[facility] [address] [place], [address] IG% 1.700 High 0.0-0.9 [facility] Comment on above: Result Comment: IG% - Immature Granulocytes (promyelocytes, myelocytes andmetamyelocytes) > 1% indicates that a LEFT SHIFT is Present. Performed By: #### L 500.2500, L100.0100 ####[facility] [address] [place], [address] Lymphocytes/100 WBC (Bld) 14.7 % Low 19-41 [facility] Comment on above: Performed By: #### L 500.2500, L100.0100 ####[facility] [address] [place], [address] MCH (RBC) [Entitic mass] 29.1 pg Normal 27.0-32.0 [facility] Comment on above: Performed By: #### L 500.2500, L100.0100 ####[facility] [address] [place], [address] MCHC (RBC) [Mass/Vol] 30.1 g/dL Low 32-36 [facility] Comment on above: Performed By: #### L 500.2500, L100.0100 ####[facility] [address] [place], [address] MCV (RBC) [Entitic vol] 96.6 fL High 80-94 [facility] Comment on above: Performed By: #### L 500.2500, L100.0100 ####[facility] [address] [place], [address] Monocytes/100 WBC (Bld) 8.6 % Normal 0-10 [facility] Comment on above: Performed By: #### L 500.2500, L100.0100 ####[facility] [address] [place], [address] Neutrophils/100 WBC (Bld) 72.6 % High 47-70 [facility] Comment on above: Performed By: #### L 500.2500, L100.0100 ####[facility] [address] [place], [address] Nucleated RBC (Bld) [#/Vol] 0 10*3/uL Normal 0-5 [facility] Comment on above: Performed By: #### L 500.2500, L100.0100 ####[facility] [address] [place], [address] Platelet mean volume (Bld) [Entitic vol] 10.8 fL Normal 6.2-12.0 [facility] Comment on above: Performed By: #### L 500.2500, L100.0100 ####[facility] [address] [place], [address] Platelets (Bld) [#/Vol] 285 10*3/uL Normal 150-450 [facility] Comment on above: Performed By: #### L 500.2500, L100.0100 ####[facility] [address] [place], [address] RBC (Bld) [#/Vol] 3.23 10*6/uL Low 4.6-6.2 [facility] Comment on above: Performed By: #### L 500.2500, L100.0100 ####[facility] [address] [place], [address] RDW SD 51.8 fl High 35.1-43.9 [facility] Comment on above: Performed By: #### L 500.2500, L100.0100 ####[facility] [address] [place], [address] WBC (Bld) [#/Vol] 15.0 10*3/uL High 4.4-11.0 [facility] Comment on above: Performed By: #### L 500.2500, L100.0100 ####[facility] [address] [place], [address] Culture, Anaerobic Any Sourc reed 04-21-[address] [facility] Comment on above: Performed By: #### M 100.2000, M100.4001, M100.3000 ####[facility] [address] [place], [address] Vancomycin, Random Levelon 1 06-21-2023 VANCO, RANDOM 15.6 ug/mL High 0.0-15.0 [facility] Comment on above: Result Comment: VANC OMYCIN STANDARD DRUG THERAPY: CRITICAL VALUE IS > 15.0 mg/LVANCOMYCIN HIGH INTENSITY THERAPY: CRITICAL VALUE IS > 20.0 mg/LPLEASE CONTACT PHARMACY SERVICES (#6234) FOR INTERPRETATIONOF RESULTS. THIS RESULT DOES NOT REPRESENT A PEAK OR TROUGHLEVEL FOR THIS DRUG. Performed By: #### L 501.8850 ####[facility] [address] [place], [address] Basic Metabolic Profile (BMP )on 04-20-2024 BUN/CRE 14.3 RATIO Normal 10-20 [facility] Comment on above: Performed By: #### L 500.2500, L100.0100 ####[facility] [address] [place], [address] CA,Total 8.6 mg/dL Normal 8.5-10.1 [facility] Comment on above: Performed By: #### L 500.2500, L100.0100 ####[facility] [address] [place], [address] Chloride [Moles/Vol] 98 mmol/L Normal 98-107 [facility] Comment on above: Performed By: #### L 500.2500, L100.0100 ####[facility] [address] [place], [address] CO2 [Moles/Vol] 23.0 mmol/L Normal 21.0-32.0 [facility] Comment on above: Performed By: #### L 500.2500, L100.0100 ####[facility] [address] [place], [address] Creatinine [Mass/Vol] 5.23 mg/dL High 0.70-1.30 [facility] Comment on above: Result Comment: The validity of the calculated GFR GFRAA in patients over70 years has not been determined. Clinical correlation isessential. Performed By: #### L 500.2500, L100.0100 ####[facility] [address] [place], [address] ECRCL 11.74 ml/min Normal [facility] Comment on above: Performed By: #### L 500.2500, L100.0100 ####[facility] [address] [place], [address] EST GFR - AA 14 mL/min Low >60 [facility] Comment on above: Result Comment: Afri can Angolan GFR Calc Performed By: #### L 500.2500, L100.0100 ####[facility] [address] [place], [address] GAP 10 Normal 5-15 [facility] Comment on above: Performed By: #### L 500.2500, L100.0100 ####[facility] [address] [place], [address] GFR/1.73 sq M.predicted among non-blacks MDRD (S/P/Bld) [Vol rate/Area] 11 mL/min/{1.73_m2} Low >60 [facility] Comment on above: Result Comment: Non- GFR Calc Performed By: #### L 500.2500, L100.0100 ####[facility] [address] [place], [address] Glucose [Mass/Vol] 264 mg/dL High 74-106 [facility] Comment on above: Result Comment: Gluc ose result greater than or equal to 200 mg/dLsuggests DIABETES MELLITUS per A.D.A. criteria. Performed By: #### L 500.2500, L100.0100 ####[facility] [address] [place], [address] Potassium [Moles/Vol] 4.4 mmol/L Normal 3.5-5.1 [facility] Comment on above: Performed By: #### L 500.2500, L100.0100 ####[facility] [address] [place], [address] Sodium [Moles/Vol] 131 mmol/L Low 136-145 [facility] Comment on above: Performed By: #### L 500.2500, L100.0100 ####[facility] [address] [place], [address] Urea nitrogen [Mass/Vol] 75 mg/dL High 7-18 [facility] Comment on above: Performed By: #### L 500.2500, L100.0100 ####[facility] [address] [place], [address] Bedside Glucoseon 04-20-2024 FINGERSTICK GLU 317 mg/dL High 74-106 [facility] Comment on above: Result Comment: FANG GEMENT OF PATIENT CARE PER NURSING PROTOCOL Performed By: #### L 501.080 ####[facility] [address] [place], [address] FINGERSTICK GLU 306 mg/dL High 74-106 [facility] Comment on above: Result Comment: FANG GEMENT OF PATIENT CARE PER NURSING PROTOCOL Performed By: #### L 501.080 ####[facility] [address] [place], [address] FINGERSTICK GLU 254 mg/dL High 74-106 [facility] Comment on above: Result Comment: FANG VAZQUEZ OF PATIENT CARE PER NURSING PROTOCOL Performed By: #### L 501.080 ####[facility] [address] [place], [address] CBC W/Diff, Automatedon 11-2 Absolute Lymph 1.78 X10 3/uL Normal 0.83-4.51 [facility] Comment on above: Performed By: #### L 500.2500, L100.0100 ####[facility] [address] [place], [address] Absolute Neut 10.4 X10 3/uL High 2.0-7.7 [facility] Comment on above: Performed By: #### L 500.2500, L100.0100 ####[facility] [address] [place], [address] Basophils/100 WBC (Bld) 0.4 % Normal 0-1 [facility] Comment on above: Performed By: #### L 500.2500, L100.0100 ####[facility] [address] [place], [address] Eosinophils/100 WBC (Bld) 2.2 % Normal 0-5 [facility] Comment on above: Performed By: #### L 500.2500, L100.0100 ####[facility] [address] [place], [address] Erythrocyte distribution width (RBC) [Ratio] 14.8 % High 11.6-14.6 [facility] Comment on above: Performed By: #### L 500.2500, L100.0100 ####[facility] [address] [place], [address] Hematocrit (Bld) [Volume fraction] 30.3 % Low 40-54 [facility] Comment on above: Performed By: #### L 500.2500, L100.0100 ####[facility] [address] [place], [address] Hemoglobin (Bld) [Mass/Vol] 9.6 g/dL Low 13.0-16.5 [facility] Comment on above: Performed By: #### L 500.2500, L100.0100 ####[facility] [address] [place], [address] IG% 1.400 High 0.0-0.9 [facility] Comment on above: Result Comment: IG% - Immature Granulocytes (promyelocytes, myelocytes andmetamyelocytes) > 1% indicates that a LEFT SHIFT is Present. Performed By: #### L 500.2500, L100.0100 ####[facility] [address] [place], [address] Lymphocytes/100 WBC (Bld) 12.8 % Low 19-41 [facility] Comment on above: Performed By: #### L 500.2500, L100.0100 ####[facility] [address] [place], [address] MCH (RBC) [Entitic mass] 30.3 pg Normal 27.0-32.0 [facility] Comment on above: Performed By: #### L 500.2500, L100.0100 ####[facility] [address] [place], [address] MCHC (RBC) [Mass/Vol] 31.7 g/dL Low 32-36 [facility] Comment on above: Performed By: #### L 500.2500, L100.0100 ####[facility] [address] [place], [address] MCV (RBC) [Entitic vol] 95.6 fL High 80-94 [facility] Comment on above: Performed By: #### L 500.2500, L100.0100 ####[facility] [address] [place], [address] Monocytes/100 WBC (Bld) 8.5 % Normal 0-10 [facility] Comment on above: Performed By: #### L 500.2500, L100.0100 ####[facility] [address] [place], [address] Neutrophils/100 WBC (Bld) 74.7 % High 47-70 [facility] Comment on above: Performed By: #### L 500.2500, L100.0100 ####[facility] [address] [place], [address] Nucleated RBC (Bld) [#/Vol] 0 10*3/uL Normal 0-5 [facility] Comment on above: Performed By: #### L 500.2500, L100.0100 ####[facility] [address] [place], [address] Platelet mean volume (Bld) [Entitic vol] 11.2 fL Normal 6.2-12.0 [facility] Comment on above: Performed By: #### L 500.2500, L100.0100 ####[facility] [address] [place], [address] Platelets (Bld) [#/Vol] 260 10*3/uL Normal 150-450 [facility] Comment on above: Performed By: #### L 500.2500, L100.0100 ####[facility] [address] [place], [address] RBC (Bld) [#/Vol] 3.17 10*6/uL Low 4.6-6.2 [facility] Comment on above: Performed By: #### L 500.2500, L100.0100 ####[facility] [address] [place], [address] RDW SD 51.7 fl High 35.1-43.9 [facility] Comment on above: Performed By: #### L 500.2500, L100.0100 ####[facility] [address] [place], [address] WBC (Bld) [#/Vol] 13.9 10*3/uL High 4.4-11.0 [facility] Comment on above: Performed By: #### L 500.2500, L100.0100 ####[facility] [address] [place], [address] Basic Metabolic Profile (BMP )on 04-19-2024 BUN/CRE 14.5 RATIO Normal 10-20 [facility] Comment on above: Performed By: #### L 100.0100, L500.2500 ####[facility] [address] [place], [address] CA,Total 8.4 mg/dL Low 8.5-10.1 [facility] Comment on above: Performed By: #### L 100.0100, L500.2500 ####[facility] [address] [place], [address] Chloride [Moles/Vol] 100 mmol/L Normal 98-107 [facility] Comment on above: Performed By: #### L 100.0100, L500.2500 ####[facility] [address] [place], [address] CO2 [Moles/Vol] 25.0 mmol/L Normal 21.0-32.0 [facility] Comment on above: Performed By: #### L 100.0100, L500.2500 ####[facility] [address] [place], [address] Creatinine [Mass/Vol] 4.13 mg/dL High 0.70-1.30 [facility] Comment on above: Result Comment: The validity of the calculated GFR GFRAA in patients over70 years has not been determined. Clinical correlation isessential. Performed By: #### L 100.0100, L500.2500 ####[facility] [address] [place], [address] ECRCL 14.76 ml/min Normal [facility] Comment on above: Performed By: #### L 100.0100, L500.2500 ####[facility] [address] [place], [address] EST GFR - AA 18 mL/min Low >60 [facility] Comment on above: Result Comment: Afri can Angolan GFR Calc Performed By: #### L 100.0100, L500.2500 ####[facility] [address] [place], [address] GAP 9 Normal 5-15 [facility] Comment on above: Performed By: #### L 100.0100, L500.2500 ####[facility] [address] [place], [address] GFR/1.73 sq M.predicted among non-blacks MDRD (S/P/Bld) [Vol rate/Area] 15 mL/min/{1.73_m2} Low >60 [facility] Comment on above: Result Comment: Non- GFR Calc Performed By: #### L 100.0100, L500.2500 ####[facility] [address] [place], [address] Glucose [Mass/Vol] 272 mg/dL High 74-106 [facility] Comment on above: Result Comment: Gluc ose result greater than or equal to 200 mg/dLsuggests DIABETES MELLITUS per A.D.A. criteria. Performed By: #### L 100.0100, L500.2500 ####[facility] [address] [place], [address] Potassium [Moles/Vol] 4.2 mmol/L Normal 3.5-5.1 [facility] Comment on above: Performed By: #### L 100.0100, L500.2500 ####[facility] [address] [place], [address] Sodium [Moles/Vol] 134 mmol/L Low 136-145 [facility] Comment on above: Performed By: #### L 100.0100, L500.2500 ####[facility] [address] [place], [address] Urea nitrogen [Mass/Vol] 60 mg/dL High 7-18 [facility] Comment on above: Performed By: #### L 100.0100, L500.2500 ####[facility] [address] [place], [address] Bedside Glucoseon 04-19-2024 FINGERSTICK GLU 261 mg/dL High 74-106 [facility] Comment on above: Result Comment: FANG GEMENT OF PATIENT CARE PER NURSING PROTOCOL Performed By: #### L 501.080 ####[facility] [address] [place], [address] FINGERSTICK GLU 292 mg/dL High 74-106 [facility] Comment on above: Result Comment: FANG GEMENT OF PATIENT CARE PER NURSING PROTOCOL Performed By: #### L 501.080 ####[facility] [address] [place], [address] FINGERSTICK GLU 298 mg/dL High 74-106 [facility] Comment on above: Result Comment: FANG GEMENT OF PATIENT CARE PER NURSING PROTOCOL Performed By: #### L 501.080 ####[facility] [address] [place], [address] FINGERSTICK GLU 247 mg/dL High 74-106 [facility] Comment on above: Result Comment: FANG GEMENT OF PATIENT CARE PER NURSING PROTOCOL Performed By: #### L 501.080 ####[facility] [address] [place], [address] CBC W/Diff, Automatedon 11-2 -2023 Absolute Lymph 1.63 X10 3/uL Normal 0.83-4.51 [facility] Comment on above: Performed By: #### L 100.0100, L500.2500 ####[facility] [address] [place], [address] Absolute Neut 11.4 X10 3/uL High 2.0-7.7 [facility] Comment on above: Performed By: #### L 100.0100, L500.2500 ####[facility] [address] [place], [address] Basophils/100 WBC (Bld) 0.3 % Normal 0-1 [facility] Comment on above: Performed By: #### L 100.0100, L500.2500 ####[facility] [address] [place], [address] Eosinophils/100 WBC (Bld) 1.1 % Normal 0-5 [facility] Comment on above: Performed By: #### L 100.0100, L500.2500 ####[facility] [address] [place], [address] Erythrocyte distribution width (RBC) [Ratio] 15.0 % High 11.6-14.6 [facility] Comment on above: Performed By: #### L 100.0100, L500.2500 ####[facility] [address] [place], [address] Hematocrit (Bld) [Volume fraction] 30.5 % Low 40-54 [facility] Comment on above: Performed By: #### L 100.0100, L500.2500 ####[facility] [address] [place], [address] Hemoglobin (Bld) [Mass/Vol] 9.4 g/dL Low 13.0-16.5 [facility] Comment on above: Performed By: #### L 100.0100, L500.2500 ####[facility] [address] [place], [address] IG% 0.900 Normal 0.0-0.9 [facility] Comment on above: Result Comment: IG% - Immature Granulocytes (promyelocytes, myelocytes andmetamyelocytes) > 1% indicates that a LEFT SHIFT is Present. Performed By: #### L 100.0100, L500.2500 ####[facility] [address] [place], [address] Lymphocytes/100 WBC (Bld) 11.1 % Low 19-41 [facility] Comment on above: Performed By: #### L 100.0100, L500.2500 ####[facility] [address] [place], [address] MCH (RBC) [Entitic mass] 29.8 pg Normal 27.0-32.0 [facility] Comment on above: Performed By: #### L 100.0100, L500.2500 ####[facility] [address] [place], [address] MCHC (RBC) [Mass/Vol] 30.8 g/dL Low 32-36 [facility] Comment on above: Performed By: #### L 100.0100, L500.2500 ####[facility] [address] [place], [address] MCV (RBC) [Entitic vol] 96.8 fL High 80-94 [facility] Comment on above: Performed By: #### L 100.0100, L500.2500 ####[facility] [address] [place], [address] Monocytes/100 WBC (Bld) 8.9 % Normal 0-10 [facility] Comment on above: Performed By: #### L 100.0100, L500.2500 ####[facility] [address] [place], [address] Neutrophils/100 WBC (Bld) 77.7 % High 47-70 [facility] Comment on above: Performed By: #### L 100.0100, L500.2500 ####[facility] [address] [place], [address] Nucleated RBC (Bld) [#/Vol] 0 10*3/uL Normal 0-5 [facility] Comment on above: Performed By: #### L 100.0100, L500.2500 ####[facility] [address] [place], [address] Platelet mean volume (Bld) [Entitic vol] 11.4 fL Normal 6.2-12.0 [facility] Comment on above: Performed By: #### L 100.0100, L500.2500 ####[facility] [address] [place], [address] Platelets (Bld) [#/Vol] 253 10*3/uL Normal 150-450 [facility] Comment on above: Performed By: #### L 100.0100, L500.2500 ####[facility] [address] [place], [address] RBC (Bld) [#/Vol] 3.15 10*6/uL Low 4.6-6.2 [facility] Comment on above: Performed By: #### L 100.0100, L500.2500 ####[facility] [address] [place], [address] RDW SD 52.9 fl High 35.1-43.9 [facility] Comment on above: Performed By: #### L 100.0100, L500.2500 ####[facility] [address] [place], [address] WBC (Bld) [#/Vol] 14.6 10*3/uL High 4.4-11.0 [facility] Comment on above: Performed By: #### L 100.0100, L500.2500 ####[facility] [address] [place], [address] Culture, Blood (WB)on 2023 CUB Blood cultures x2 fr om two different sites No growth in [address] [facility] Comment on above: Performed By: #### M 200.1000 ####[facility] [address] [place], [address] ACT Activated Clotting Timeo n 04-18-2024 ACTk CLOT TIME 222 sec High 74-137 [facility] Comment on above: Performed By: #### L 9100.0100 ####[facility] [address] [place], [address] BUNon 04-18-2024 Urea nitrogen [Mass/Vol] 39 mg/dL High 7-18 [facility] Comment on above: Performed By: #### L 501.1105, L501.1000 ####[facility] [address] [place], [address] Basic Metabolic Profile (BMP )on 04-18-2024 BUN/CRE 16.6 RATIO Normal 10-20 [facility] Comment on above: Performed By: #### L 500.2500, L100.0100 ####[facility] [address] [place], [address] CA,Total 8.5 mg/dL Normal 8.5-10.1 [facility] Comment on above: Performed By: #### L 500.2500, L100.0100 ####[facility] [address] [place], [address] Chloride [Moles/Vol] 98 mmol/L Normal 98-107 [facility] Comment on above: Performed By: #### L 500.2500, L100.0100 ####[facility] [address] [place], [address] CO2 [Moles/Vol] 24.0 mmol/L Normal 21.0-32.0 [facility] Comment on above: Performed By: #### L 500.2500, L100.0100 ####[facility] [address] [place], [address] Creatinine [Mass/Vol] 5.00 mg/dL High 0.70-1.30 [facility] Comment on above: Result Comment: The validity of the calculated GFR GFRAA in patients over70 years has not been determined. Clinical correlation isessential. Performed By: #### L 500.2500, L100.0100 ####[facility] [address] [place], [address] ECRCL 12.43 ml/min Normal [facility] Comment on above: Performed By: #### L 500.2500, L100.0100 ####[facility] [address] [place], [address] EST GFR - AA 14 mL/min Low >60 [facility] Comment on above: Result Comment: Afri can Angolan GFR Calc Performed By: #### L 500.2500, L100.0100 ####[facility] [address] [place], [address] GAP 10 Normal 5-15 [facility] Comment on above: Performed By: #### L 500.2500, L100.0100 ####[facility] [address] [place], [address] GFR/1.73 sq M.predicted among non-blacks MDRD (S/P/Bld) [Vol rate/Area] 12 mL/min/{1.73_m2} Low >60 [facility] Comment on above: Result Comment: Non- GFR Calc Performed By: #### L 500.2500, L100.0100 ####[facility] [address] [place], [address] Glucose [Mass/Vol] 136 mg/dL High 74-106 [facility] Comment on above: Result Comment: Fast ing Glucose result greater than or equal to 126 mg/dLsuggests DIABETES MELLITUS per A.D.A. criteria. Performed By: #### L 500.2500, L100.0100 ####[facility] [address] [place], [address] Potassium [Moles/Vol] 4.1 mmol/L Normal 3.5-5.1 [facility] Comment on above: Performed By: #### L 500.2500, L100.0100 ####[facility] [address] [place], [address] Sodium [Moles/Vol] 132 mmol/L Low 136-145 [facility] Comment on above: Performed By: #### L 500.2500, L100.0100 ####[facility] [address] [place], [address] Urea nitrogen [Mass/Vol] 83 mg/dL High 7-18 [facility] Comment on above: Performed By: #### L 500.2500, L100.0100 ####[facility] [address] [place], [address] Bedside Glucoseon 04-18-2024 FINGERSTICK GLU 289 mg/dL High 74-106 [facility] Comment on above: Result Comment: FANG GEMENT OF PATIENT CARE PER NURSING PROTOCOL Performed By: #### L 501.080 ####[facility] [address] [place], [address] FINGERSTICK GLU 106 mg/dL Normal 74-106 [facility] Comment on above: Result Comment: FANG GEMENT OF PATIENT CARE PER NURSING PROTOCOL Performed By: #### L 501.080 ####[facility] [address] [place], [address] FINGERSTICK GLU 123 mg/dL High 74-106 [facility] Comment on above: Result Comment: FANG GEMENT OF PATIENT CARE PER NURSING PROTOCOL Performed By: #### L 501.080 ####[facility] [address] [place], [address] FINGERSTICK GLU 132 mg/dL High 74-106 [facility] Comment on above: Result Comment: FANG GEMENT OF PATIENT CARE PER NURSING PROTOCOL Performed By: #### L 501.080 ####[facility] [address] [place], [address] FINGERSTICK GLU 313 mg/dL High 74-106 [facility] Comment on above: Result Comment: FANG GEMENT OF PATIENT CARE PER NURSING PROTOCOL Performed By: #### L 501.080 ####[facility] [address] [place], [address] CBC W/Diff, Automatedon 11-2 -2023 Absolute Lymph 1.73 X10 3/uL Normal 0.83-4.51 [facility] Comment on above: Performed By: #### L 500.2500, L100.0100 ####[facility] [address] [place], [address] Absolute Neut 11.4 X10 3/uL High 2.0-7.7 [facility] Comment on above: Performed By: #### L 500.2500, L100.0100 ####[facility] [address] [place], [address] Basophils/100 WBC (Bld) 0.3 % Normal 0-1 [facility] Comment on above: Performed By: #### L 500.2500, L100.0100 ####[facility] [address] [place], [address] Eosinophils/100 WBC (Bld) 1.4 % Normal 0-5 [facility] Comment on above: Performed By: #### L 500.2500, L100.0100 ####[facility] [address] [place], [address] Erythrocyte distribution width (RBC) [Ratio] 14.8 % High 11.6-14.6 [facility] Comment on above: Performed By: #### L 500.2500, L100.0100 ####[facility] [address] [place], [address] Hematocrit (Bld) [Volume fraction] 30.8 % Low 40-54 [facility] Comment on above: Performed By: #### L 500.2500, L100.0100 ####[facility] [address] [place], [address] Hemoglobin (Bld) [Mass/Vol] 9.5 g/dL Low 13.0-16.5 [facility] Comment on above: Performed By: #### L 500.2500, L100.0100 ####[facility] [address] [place], [address] IG% 0.900 Normal 0.0-0.9 [facility] Comment on above: Result Comment: IG% - Immature Granulocytes (promyelocytes, myelocytes andmetamyelocytes) > 1% indicates that a LEFT SHIFT is Present. Performed By: #### L 500.2500, L100.0100 ####[facility] [address] [place], [address] Lymphocytes/100 WBC (Bld) 11.7 % Low 19-41 [facility] Comment on above: Performed By: #### L 500.2500, L100.0100 ####[facility] [address] [place], [address] MCH (RBC) [Entitic mass] 29.8 pg Normal 27.0-32.0 [facility] Comment on above: Performed By: #### L 500.2500, L100.0100 ####[facility] [address] [place], [address] MCHC (RBC) [Mass/Vol] 30.8 g/dL Low 32-36 [facility] Comment on above: Performed By: #### L 500.2500, L100.0100 ####[facility] [address] [place], [address] MCV (RBC) [Entitic vol] 96.6 fL High 80-94 [facility] Comment on above: Performed By: #### L 500.2500, L100.0100 ####[facility] [address] [place], [address] Monocytes/100 WBC (Bld) 8.4 % Normal 0-10 [facility] Comment on above: Performed By: #### L 500.2500, L100.0100 ####[facility] [address] [place], [address] Neutrophils/100 WBC (Bld) 77.3 % High 47-70 [facility] Comment on above: Performed By: #### L 500.2500, L100.0100 ####[facility] [address] [place], [address] Nucleated RBC (Bld) [#/Vol] 0 10*3/uL Normal 0-5 [facility] Comment on above: Performed By: #### L 500.2500, L100.0100 ####[facility] [address] [place], [address] Platelet mean volume (Bld) [Entitic vol] 11.7 fL Normal 6.2-12.0 [facility] Comment on above: Performed By: #### L 500.2500, L100.0100 ####[facility] [address] [place], [address] Platelets (Bld) [#/Vol] 250 10*3/uL Normal 150-450 [facility] Comment on above: Performed By: #### L 500.2500, L100.0100 ####[facility] [address] [place], [address] RBC (Bld) [#/Vol] 3.19 10*6/uL Low 4.6-6.2 [facility] Comment on above: Performed By: #### L 500.2500, L100.0100 ####[facility] [address] [place], [address] RDW SD 51.9 fl High 35.1-43.9 [facility] Comment on above: Performed By: #### L 500.2500, L100.0100 ####[facility] [address] [place], [address] WBC (Bld) [#/Vol] 14.7 10*3/uL High 4.4-11.0 [facility] Comment on above: Performed By: #### L 500.2500, L100.0100 ####[facility] [address] [place], [address] Operative Reporton [address] [facility] Serum Creatinine AND GFRon 1 06-18-2023 Creatinine [Mass/Vol] 2.45 mg/dL High 0.70-1.30 [facility] Comment on above: Result Comment: The validity of the calculated GFR GFRAA in patients over70 years has not been determined. Clinical correlation isessential. Performed By: #### L 501.1105, L501.1000 ####[facility] [address] [place], [address] ECRCL 24.91 ml/min Normal [facility] Comment on above: Performed By: #### L 501.1105, L501.1000 ####[facility] [address] [place], [address] EST GFR - AA 32 mL/min Low >60 [facility] Comment on above: Result Comment: Afri can Angolan GFR Calc Performed By: #### L 501.1105, L501.1000 ####[facility] [address] [place], [address] GFR/1.73 sq M.predicted among non-blacks MDRD (S/P/Bld) [Vol rate/Area] 27 mL/min/{1.73_m2} Low >60 [facility] Comment on above: Result Comment: Non- GFR Calc Performed By: #### L 501.1105, L501.1000 ####[facility] [address] [place], [address] Vancomycin, Random Levelon 1 06-18-2023 VANCO, RANDOM 16.5 ug/mL High 0.0-15.0 [facility] Comment on above: Order Comment: Comme nts: WITH AM LABS PLEASE, PRIOR TO HD Result Comment: VANC OMYCIN STANDARD DRUG THERAPY: CRITICAL VALUE IS > 15.0 mg/LVANCOMYCIN HIGH INTENSITY THERAPY: CRITICAL VALUE IS > 20.0 mg/LPLEASE CONTACT PHARMACY SERVICES (#0478) FOR INTERPRETATIONOF RESULTS. THIS RESULT DOES NOT REPRESENT A PEAK OR TROUGHLEVEL FOR THIS DRUG. Performed By: #### L 501.8850 ####[facility] [address] [place], [address] Basic Metabolic Profile (BMP )on 04-17-2024 BUN/CRE 14.9 RATIO Normal 10-20 [facility] Comment on above: Performed By: #### L 100.0100, L500.2500 ####[facility] [address] [place], [address] CA,Total 8.7 mg/dL Normal 8.5-10.1 [facility] Comment on above: Performed By: #### L 100.0100, L500.2500 ####[facility] [address] [place], [address] Chloride [Moles/Vol] 99 mmol/L Normal 98-107 [facility] Comment on above: Performed By: #### L 100.0100, L500.2500 ####[facility] [address] [place], [address] CO2 [Moles/Vol] 27.0 mmol/L Normal 21.0-32.0 [facility] Comment on above: Performed By: #### L 100.0100, L500.2500 ####[facility] [address] [place], [address] Creatinine [Mass/Vol] 3.88 mg/dL High 0.70-1.30 [facility] Comment on above: Result Comment: The validity of the calculated GFR GFRAA in patients over70 years has not been determined. Clinical correlation isessential. Performed By: #### L 100.0100, L500.2500 ####[facility] [address] [place], [address] ECRCL 15.55 ml/min Normal [facility] Comment on above: Performed By: #### L 100.0100, L500.2500 ####[facility] [address] [place], [address] EST GFR - AA 19 mL/min Low >60 [facility] Comment on above: Result Comment: Afri can Angolan GFR Calc Performed By: #### L 100.0100, L500.2500 ####[facility] [address] [place], [address] GAP 8 Normal 5-15 [facility] Comment on above: Performed By: #### L 100.0100, L500.2500 ####[facility] [address] [place], [address] GFR/1.73 sq M.predicted among non-blacks MDRD (S/P/Bld) [Vol rate/Area] 16 mL/min/{1.73_m2} Low >60 [facility] Comment on above: Result Comment: Non- GFR Calc Performed By: #### L 100.0100, L500.2500 ####[facility] [address] [place], [address] Glucose [Mass/Vol] 139 mg/dL High 74-106 [facility] Comment on above: Result Comment: Fast ing Glucose result greater than or equal to 126 mg/dLsuggests DIABETES MELLITUS per A.D.A. criteria. Performed By: #### L 100.0100, L500.2500 ####[facility] [address] [place], [address] Potassium [Moles/Vol] 4.0 mmol/L Normal 3.5-5.1 [facility] Comment on above: Performed By: #### L 100.0100, L500.2500 ####[facility] [address] [place], [address] Sodium [Moles/Vol] 133 mmol/L Low 136-145 [facility] Comment on above: Performed By: #### L 100.0100, L500.2500 ####[facility] [address] [place], [address] Urea nitrogen [Mass/Vol] 58 mg/dL High 7-18 [facility] Comment on above: Performed By: #### L 100.0100, L500.2500 ####[facility] [address] [place], [address] Bedside Glucoseon 04-17-2024 FINGERSTICK GLU 337 mg/dL High 74-106 [facility] Comment on above: Result Comment: FANG GEMENT OF PATIENT CARE PER NURSING PROTOCOL Performed By: #### L 501.080 ####[facility] [address] [place], [address] FINGERSTICK GLU 219 mg/dL High 74-106 [facility] Comment on above: Result Comment: FNAG GEMENT OF PATIENT CARE PER NURSING PROTOCOL Performed By: #### L 501.080 ####[facility] [address] [place], [address] FINGERSTICK GLU 139 mg/dL High 74-106 [facility] Comment on above: Result Comment: FANG VAZQUEZ OF PATIENT CARE PER NURSING PROTOCOL Performed By: #### L 501.080 ####[facility] [address] [place], [address] CBC W/Diff, Automatedon 11-2 Absolute Lymph 2.01 X10 3/uL Normal 0.83-4.51 [facility] Comment on above: Performed By: #### L 100.0100, L500.2500 ####[facility] [address] [place], [address] Absolute Neut 11.4 X10 3/uL High 2.0-7.7 [facility] Comment on above: Performed By: #### L 100.0100, L500.2500 ####[facility] [address] [place], [address] Basophils/100 WBC (Bld) 0.2 % Normal 0-1 [facility] Comment on above: Performed By: #### L 100.0100, L500.2500 ####[facility] [address] [place], [address] Eosinophils/100 WBC (Bld) 0.9 % Normal 0-5 [facility] Comment on above: Performed By: #### L 100.0100, L500.2500 ####[facility] [address] [place], [address] Erythrocyte distribution width (RBC) [Ratio] 14.8 % High 11.6-14.6 [facility] Comment on above: Performed By: #### L 100.0100, L500.2500 ####[facility] [address] [place], [address] Hematocrit (Bld) [Volume fraction] 32.2 % Low 40-54 [facility] Comment on above: Performed By: #### L 100.0100, L500.2500 ####[facility] [address] [place], [address] Hemoglobin (Bld) [Mass/Vol] 9.7 g/dL Low 13.0-16.5 [facility] Comment on above: Performed By: #### L 100.0100, L500.2500 ####[facility] [address] [place], [address] IG% 0.500 Normal 0.0-0.9 [facility] Comment on above: Result Comment: IG% - Immature Granulocytes (promyelocytes, myelocytes andmetamyelocytes) > 1% indicates that a LEFT SHIFT is Present. Performed By: #### L 100.0100, L500.2500 ####[facility] [address] [place], [address] Lymphocytes/100 WBC (Bld) 13.4 % Low 19-41 [facility] Comment on above: Performed By: #### L 100.0100, L500.2500 ####[facility] [address] [place], [address] MCH (RBC) [Entitic mass] 29.6 pg Normal 27.0-32.0 [facility] Comment on above: Performed By: #### L 100.0100, L500.2500 ####[facility] [address] [place], [address] MCHC (RBC) [Mass/Vol] 30.1 g/dL Low 32-36 [facility] Comment on above: Performed By: #### L 100.0100, L500.2500 ####[facility] [address] [place], [address] MCV (RBC) [Entitic vol] 98.2 fL High 80-94 [facility] Comment on above: Performed By: #### L 100.0100, L500.2500 ####[facility] [address] [place], [address] Monocytes/100 WBC (Bld) 9.3 % Normal 0-10 [facility] Comment on above: Performed By: #### L 100.0100, L500.2500 ####[facility] [address] [place], [address] Neutrophils/100 WBC (Bld) 75.7 % High 47-70 [facility] Comment on above: Performed By: #### L 100.0100, L500.2500 ####[facility] [address] [place], [address] Nucleated RBC (Bld) [#/Vol] 0 10*3/uL Normal 0-5 [facility] Comment on above: Performed By: #### L 100.0100, L500.2500 ####[facility] [address] [place], [address] Platelet mean volume (Bld) [Entitic vol] 11.7 fL Normal 6.2-12.0 [facility] Comment on above: Performed By: #### L 100.0100, L500.2500 ####[facility] [address] [place], [address] Platelets (Bld) [#/Vol] 232 10*3/uL Normal 150-450 [facility] Comment on above: Performed By: #### L 100.0100, L500.2500 ####[facility] [address] [place], [address] RBC (Bld) [#/Vol] 3.28 10*6/uL Low 4.6-6.2 [facility] Comment on above: Performed By: #### L 100.0100, L500.2500 ####[facility] [address] [place], [address] RDW SD 53.6 fl High 35.1-43.9 [facility] Comment on above: Performed By: #### L 100.0100, L500.2500 ####[facility] [address] [place], [address] WBC (Bld) [#/Vol] 15.0 10*3/uL High 4.4-11.0 [facility] [facility] Comment on above: Performed By: #### L 100.0100, L500.2500 ####[facility] [address] [place], [address] 12 Lead EKGon 04-16-2024 [address] [facility] Basic Metabolic Profile (BMP )on 04-16-2024 BUN/CRE 12.0 RATIO Normal 10-20 [facility] Comment on above: Performed By: #### L 100.0100, L500.2500 ####[facility] [address] [place], [address] CA,Total 8.6 mg/dL Normal 8.5-10.1 [facility] Comment on above: Performed By: #### L 100.0100, L500.2500 ####[facility] [address] [place], [address] Chloride [Moles/Vol] 96 mmol/L Low 98-107 [facility] Comment on above: Performed By: #### L 100.0100, L500.2500 ####[facility] [address] [place], [address] CO2 [Moles/Vol] 28.0 mmol/L Normal 21.0-32.0 [facility] Comment on above: Performed By: #### L 100.0100, L500.2500 ####[facility] [address] [place], [address] Creatinine [Mass/Vol] 4.76 mg/dL High 0.70-1.30 [facility] Comment on above: Result Comment: The validity of the calculated GFR GFRAA in patients over70 years has not been determined. Clinical correlation isessential. Performed By: #### L 100.0100, L500.2500 ####[facility] [address] [place], [address] ECRCL 12.86 ml/min Normal [facility] Comment on above: Performed By: #### L 100.0100, L500.2500 ####[facility] [address] [place], [address] EST GFR - AA 15 mL/min Low >60 [facility] Comment on above: Result Comment: Afri can Angolan GFR Calc Performed By: #### L 100.0100, L500.2500 ####[facility] [address] [place], [address] GAP 9 Normal 5-15 [facility] Comment on above: Performed By: #### L 100.0100, L500.2500 ####[facility] [address] [place], [address] GFR/1.73 sq M.predicted among non-blacks MDRD (S/P/Bld) [Vol rate/Area] 12 mL/min/{1.73_m2} Low >60 [facility] Comment on above: Result Comment: Non- GFR Calc Performed By: #### L 100.0100, L500.2500 ####[facility] [address] [place], [address] Glucose [Mass/Vol] 148 mg/dL High 74-106 [facility] Comment on above: Result Comment: Fast ing Glucose result greater than or equal to 126 mg/dLsuggests DIABETES MELLITUS per A.D.A. criteria. Performed By: #### L 100.0100, L500.2500 ####[facility] [address] [place], [address] Potassium [Moles/Vol] 4.1 mmol/L Normal 3.5-5.1 [facility] Comment on above: Performed By: #### L 100.0100, L500.2500 ####[facility] [address] [place], [address] Sodium [Moles/Vol] 133 mmol/L Low 136-145 [facility] Comment on above: Performed By: #### L 100.0100, L500.2500 ####[facility] [address] [place], [address] Urea nitrogen [Mass/Vol] 57 mg/dL High 7-18 [facility] Comment on above: Performed By: #### L 100.0100, L500.2500 ####[facility] [address] [place], [address] Bedside Glucoseon 04-16-2024 FINGERSTICK GLU 273 mg/dL High 74-106 [facility] Comment on above: Result Comment: FANG GEMENT OF PATIENT CARE PER NURSING PROTOCOL Performed By: #### L 501.080 ####[facility] [address] [place], [address] FINGERSTICK GLU 266 mg/dL High 74-106 [facility] Comment on above: Result Comment: FANG GEMENT OF PATIENT CARE PER NURSING PROTOCOL Performed By: #### L 501.080 ####[facility] [address] [place], [address] FINGERSTICK GLU 142 mg/dL High 74-106 [facility] Comment on above: Result Comment: FANG GEMENT OF PATIENT CARE PER NURSING PROTOCOL Performed By: #### L 501.080 ####[facility] [address] [place], [address] CBC W/Diff, Automatedon - Absolute Lymph 1.44 X10 3/uL Normal 0.83-4.51 [facility] Comment on above: Performed By: #### L 100.0100, L500.2500 ####[facility] [address] [place], [address] Absolute Neut 10.4 X10 3/uL High 2.0-7.7 [facility] Comment on above: Performed By: #### L 100.0100, L500.2500 ####[facility] [address] [place], [address] Basophils/100 WBC (Bld) 0.2 % Normal 0-1 [facility] Comment on above: Performed By: #### L 100.0100, L500.2500 ####[facility] [address] [place], [address] Eosinophils/100 WBC (Bld) 0.5 % Normal 0-5 [facility] Comment on above: Performed By: #### L 100.0100, L500.2500 ####[facility] [address] [place], [address] Erythrocyte distribution width (RBC) [Ratio] 14.9 % High 11.6-14.6 [facility] Comment on above: Performed By: #### L 100.0100, L500.2500 ####[facility] [address] [place], [address] Hematocrit (Bld) [Volume fraction] 32.4 % Low 40-54 [facility] Comment on above: Performed By: #### L 100.0100, L500.2500 ####[facility] [address] [place], [address] Hemoglobin (Bld) [Mass/Vol] 10.0 g/dL Low 13.0-16.5 [facility] Comment on above: Performed By: #### L 100.0100, L500.2500 ####[facility] [address] [place], [address] IG% 0.400 Normal 0.0-0.9 [facility] Comment on above: Result Comment: IG% - Immature Granulocytes (promyelocytes, myelocytes andmetamyelocytes) > 1% indicates that a LEFT SHIFT is Present. Performed By: #### L 100.0100, L500.2500 ####[facility] [address] [place], [address] Lymphocytes/100 WBC (Bld) 10.9 % Low 19-41 [facility] Comment on above: Performed By: #### L 100.0100, L500.2500 ####[facility] [address] [place], [address] MCH (RBC) [Entitic mass] 29.9 pg Normal 27.0-32.0 [facility] Comment on above: Performed By: #### L 100.0100, L500.2500 ####[facility] [address] [place], [address] MCHC (RBC) [Mass/Vol] 30.9 g/dL Low 32-36 [facility] Comment on above: Performed By: #### L 100.0100, L500.2500 ####[facility] [address] [place], [address] MCV (RBC) [Entitic vol] 97.0 fL High 80-94 [facility] Comment on above: Performed By: #### L 100.0100, L500.2500 ####[facility] [address] [place], [address] Monocytes/100 WBC (Bld) 9.6 % Normal 0-10 [facility] Comment on above: Performed By: #### L 100.0100, L500.2500 ####[facility] [address] [place], [address] Neutrophils/100 WBC (Bld) 78.4 % High 47-70 [facility] Comment on above: Performed By: #### L 100.0100, L500.2500 ####[facility] [address] [place], [address] Nucleated RBC (Bld) [#/Vol] 0 10*3/uL Normal 0-5 [facility] Comment on above: Performed By: #### L 100.0100, L500.2500 ####[facility] [address] [place], [address] Platelet mean volume (Bld) [Entitic vol] 11.1 fL Normal 6.2-12.0 [facility] Comment on above: Performed By: #### L 100.0100, L500.2500 ####[facility] [address] [place], [address] Platelets (Bld) [#/Vol] 223 10*3/uL Normal 150-450 [facility] Comment on above: Performed By: #### L 100.0100, L500.2500 ####[facility] [address] [place], [address] RBC (Bld) [#/Vol] 3.34 10*6/uL Low 4.6-6.2 [facility] Comment on above: Performed By: #### L 100.0100, L500.2500 ####[facility] [address] [place], [address] RDW SD 52.6 fl High 35.1-43.9 [facility] Comment on above: Performed By: #### L 100.0100, L500.2500 ####[facility] [address] [place], [address] WBC (Bld) [#/Vol] 13.3 10*3/uL High 4.4-11.0 [facility] Comment on above: Performed By: #### L 100.0100, L500.2500 ####[facility] [address] [place], [address] Consultation - Infectious Dx on 04-16-2024 Consultation - Infectious Dx Normal [facility] Consultation - Nephrologyon 04-16-2024 Consultation - Nephrology Normal [facility] Consultation - Surgicalon Consultation - Surgical Normal [facility] Gram Stainon 04-16-2024 GS Gram Stain 2+ Gram positive cocci 2+ Red Blood Cells 2+ Gram variable yessy No Epithelial cells Normal [facility] Comment on above: Performed By: #### M 100.2000, M100.4001, M100.3000 ####[facility] [address] [place], [address] Hemoglobin A1con 04-16-2024 HbA1c (Bld) [Mass fraction] 9.0 % High 3.8-5.6 [facility] Comment on above: Result Comment: Norm al < 5.7 % Prediabetic 5.7 - 6.4 % Diabetic >or= 6.5 % Please note range changes. Performed By: #### L 501.9985 ####[facility] [address] [place], [address] Lower Ext/No Jt/w/oon 2023 Lower Ext/No Jt/w/o Normal [facility] Bedside Glucoseon 04-15-2024 FINGERSTICK GLU 262 mg/dL High 74-106 [facility] Comment on above: Result Comment: FANG GEMENT OF PATIENT CARE PER NURSING PROTOCOL Performed By: #### L 501.080 ####[facility] [address] [place], [address] FINGERSTICK GLU 188 mg/dL High 74-106 [facility] Comment on above: Result Comment: FANG GEMENT OF PATIENT CARE PER NURSING PROTOCOL Performed By: #### L 501.080 ####[facility] [address] [place], [address] FINGERSTICK GLU 114 mg/dL High 74-106 [facility] Comment on above: Result Comment: FANG GEMENT OF PATIENT CARE PER NURSING PROTOCOL Performed By: #### L 501.080 ####[facility] [address] [place], [address] FINGERSTICK GLU 117 mg/dL High 74-106 [facility] Comment on above: Result Comment: FANG VAZQUEZ OF PATIENT CARE PER NURSING PROTOCOL Performed By: #### L 501.080 ####[facility] [address] [place], [address] CBC W/Diff, Automatedon 11-2 -2023 Absolute Lymph 1.56 X10 3/uL Normal 0.83-4.51 [facility] Comment on above: Performed By: #### L 300.3900, L500.4050, L501.9520, L100.0100 ####[facility] [address] [place], [address] Absolute Neut 9.4 X10 3/uL High 2.0-7.7 [facility] Comment on above: Performed By: #### L 300.3900, L500.4050, L501.9520, L100.0100 ####[facility] [address] [place], [address] Basophils/100 WBC (Bld) 0.2 % Normal 0-1 [facility] Comment on above: Performed By: #### L 300.3900, L500.4050, L501.9520, L100.0100 ####[facility] [address] [place], [address] Eosinophils/100 WBC (Bld) 0.3 % Normal 0-5 [facility] Comment on above: Performed By: #### L 300.3900, L500.4050, L501.9520, L100.0100 ####[facility] [address] [place], [address] Erythrocyte distribution width (RBC) [Ratio] 15.0 % High 11.6-14.6 [facility] Comment on above: Performed By: #### L 300.3900, L500.4050, L501.9520, L100.0100 ####[facility] [address] [place], [address] Hematocrit (Bld) [Volume fraction] 31.9 % Low 40-54 [facility] Comment on above: Performed By: #### L 300.3900, L500.4050, L501.9520, L100.0100 ####[facility] [address] [place], [address] Hemoglobin (Bld) [Mass/Vol] 9.8 g/dL Low 13.0-16.5 [facility] Comment on above: Performed By: #### L 300.3900, L500.4050, L501.9520, L100.0100 ####[facility] [address] [place], [address] IG% 0.500 Normal 0.0-0.9 [facility] Comment on above: Result Comment: IG% - Immature Granulocytes (promyelocytes, myelocytes andmetamyelocytes) > 1% indicates that a LEFT SHIFT is Present. Performed By: #### L 300.3900, L500.4050, L501.9520, L100.0100 ####[facility] [address] [place], [address] Lymphocytes/100 WBC (Bld) 12.7 % Low 19-41 [facility] Comment on above: Performed By: #### L 300.3900, L500.4050, L501.9520, L100.0100 ####[facility] [address] [place], [address] MCH (RBC) [Entitic mass] 29.8 pg Normal 27.0-32.0 [facility] Comment on above: Performed By: #### L 300.3900, L500.4050, L501.9520, L100.0100 ####[facility] [address] [place], [address] MCHC (RBC) [Mass/Vol] 30.7 g/dL Low 32-36 [facility] Comment on above: Performed By: #### L 300.3900, L500.4050, L501.9520, L100.0100 ####[facility] [address] [place], [address] MCV (RBC) [Entitic vol] 97.0 fL High 80-94 [facility] Comment on above: Performed By: #### L 300.3900, L500.4050, L501.9520, L100.0100 ####[facility] [address] [place], [address] Monocytes/100 WBC (Bld) 9.6 % Normal 0-10 [facility] Comment on above: Performed By: #### L 300.3900, L500.4050, L501.9520, L100.0100 ####[facility] [address] [place], [address] Neutrophils/100 WBC (Bld) 76.7 % High 47-70 [facility] Comment on above: Performed By: #### L 300.3900, L500.4050, L501.9520, L100.0100 ####[facility] [address] [place], [address] Nucleated RBC (Bld) [#/Vol] 0 10*3/uL Normal 0-5 [facility] Comment on above: Performed By: #### L 300.3900, L500.4050, L501.9520, L100.0100 ####[facility] [address] [place], [address] Platelet mean volume (Bld) [Entitic vol] 11.1 fL Normal 6.2-12.0 [facility] Comment on above: Performed By: #### L 300.3900, L500.4050, L501.9520, L100.0100 ####[facility] [address] [place], [address] Platelets (Bld) [#/Vol] 238 10*3/uL Normal 150-450 [facility] Comment on above: Performed By: #### L 300.3900, L500.4050, L501.9520, L100.0100 ####[facility] [address] [place], [address] RBC (Bld) [#/Vol] 3.29 10*6/uL Low 4.6-6.2 [facility] Comment on above: Performed By: #### L 300.3900, L500.4050, L501.9520, L100.0100 ####[facility] [address] [place], [address] RDW SD 52.9 fl High 35.1-43.9 [facility] Comment on above: Performed By: #### L 300.3900, L500.4050, L501.9520, L100.0100 ####[facility] [address] [place], [address] WBC (Bld) [#/Vol] 12.2 10*3/uL High 4.4-11.0 [facility] Comment on above: Performed By: #### L 300.3900, L500.4050, L501.9520, L100.0100 ####[facility] [address] [place], [address] CRPon 04-15-2024 C-REACTIVE PROT 232.00 mg/L High 0.0-3.0 [facility] Comment on above: Order Comment: Comme nts: Add onto previous labs if possible Result Comment: C-Re active Protein (CRP) provides useful information for thediagnosis, therapy and monitoring of inflammatory processesand associated diseases. For the evaluation of Relative Riskfor Cardiovascular Disease, a High Sensitivity CRP (HSCRP)should be ordered. Performed By: #### L 501.6710, L101.9900 ####[facility] [address] [place], [address] Comprehensive Metabolic Prof ilon 04-15-2024 Albumin [Mass/Vol] 2.3 g/dL Low 3.2-5.0 [facility] Comment on above: Performed By: #### L 300.3900, L500.4050, L501.9520, L100.0100 ####[facility] [address] [place], [address] Albumin/Globulin [Mass ratio] 0.5 {ratio} Low 0.9-2.4 [facility] Comment on above: Performed By: #### L 300.3900, L500.4050, L501.9520, L100.0100 ####[facility] [address] [place], [address] ALK P 49 U/L Normal 45-117 [facility] Comment on above: Performed By: #### L 300.3900, L500.4050, L501.9520, L100.0100 ####[facility] [address] [place], [address] ALT [Catalytic activity/Vol] 13 U/L Low 16-61 [facility] Comment on above: Performed By: #### L 300.3900, L500.4050, L501.9520, L100.0100 ####[facility] [address] [place], [address] AST [Catalytic activity/Vol] 9 U/L Low 15-37 [facility] Comment on above: Performed By: #### L 300.3900, L500.4050, L501.9520, L100.0100 ####[facility] [address] [place], [address] Bilirubin [Mass/Vol] 0.50 mg/dL Normal 0.20-1.00 [facility] Comment on above: Result Comment: For patients on eltrombopag therapy, use of Dimension [place] TBIL is not recommended. Performed By: #### L 300.3900, L500.4050, L501.9520, L100.0100 ####[facility] [address] [place], [address] BUN/CRE 10.6 RATIO Normal 10-20 [facility] Comment on above: Performed By: #### L 300.3900, L500.4050, L501.9520, L100.0100 ####[facility] [address] [place], [address] CA,Total 8.4 mg/dL Low 8.5-10.1 [facility] Comment on above: Performed By: #### L 300.3900, L500.4050, L501.9520, L100.0100 ####[facility] [address] [place], [address] Chloride [Moles/Vol] 97 mmol/L Low 98-107 [facility] Comment on above: Performed By: #### L 300.3900, L500.4050, L501.9520, L100.0100 ####[facility] [address] [place], [address] CO2 [Moles/Vol] 28.0 mmol/L Normal 21.0-32.0 [facility] Comment on above: Performed By: #### L 300.3900, L500.4050, L501.9520, L100.0100 ####[facility] [address] [place], [address] Creatinine [Mass/Vol] 3.79 mg/dL High 0.70-1.30 [facility] Comment on above: Result Comment: The validity of the calculated GFR GFRAA in patients over70 years has not been determined. Clinical correlation isessential. Performed By: #### L 300.3900, L500.4050, L501.9520, L100.0100 ####[facility] [address] [place], [address] ECRCL 16.15 ml/min Normal [facility] Comment on above: Performed By: #### L 300.3900, L500.4050, L501.9520, L100.0100 ####[facility] [address] [place], [address] EST GFR - AA 20 mL/min Low >60 [facility] Comment on above: Result Comment: Afri can Angolan GFR Calc Performed By: #### L 300.3900, L500.4050, L501.9520, L100.0100 ####[facility] [address] [place], [address] GAP 10 Normal 5-15 [facility] Comment on above: Performed By: #### L 300.3900, L500.4050, L501.9520, L100.0100 ####[facility] [address] [place], [address] GFR/1.73 sq M.predicted among non-blacks MDRD (S/P/Bld) [Vol rate/Area] 16 mL/min/{1.73_m2} Low >60 [facility] Comment on above: Result Comment: Non- GFR Calc Performed By: #### L 300.3900, L500.4050, L501.9520, L100.0100 ####[facility] [address] [place], [address] Globulin (S) [Mass/Vol] 4.7 g/dL High 2.2-4.2 [facility] Comment on above: Performed By: #### L 300.3900, L500.4050, L501.9520, L100.0100 ####[facility] [address] [place], [address] Glucose [Mass/Vol] 124 mg/dL High 74-106 [facility] Comment on above: Result Comment: Fast ing Glucose result from 100 to 125 mg/dLsuggests IMPAIRED HOMEOSTASIS per A.D.A. criteria. Performed By: #### L 300.3900, L500.4050, L501.9520, L100.0100 ####[facility] [address] [place], [address] Potassium [Moles/Vol] 3.8 mmol/L Normal 3.5-5.1 [facility] Comment on above: Performed By: #### L 300.3900, L500.4050, L501.9520, L100.0100 ####[facility] [address] [place], [address] Sodium [Moles/Vol] 135 mmol/L Low 136-145 [facility] Comment on above: Performed By: #### L 300.3900, L500.4050, L501.9520, L100.0100 ####[facility] [address] [place], [address] T PROT 7.0 g/dL Normal 6.4-8.2 [facility] Comment on above: Performed By: #### L 300.3900, L500.4050, L501.9520, L100.0100 ####[facility] [address] [place], [address] Urea nitrogen [Mass/Vol] 40 mg/dL High 7-18 [facility] Comment on above: Performed By: #### L 300.3900, L500.4050, L501.9520, L100.0100 ####[facility] [address] [place], [address] Erythrocyte Sed Rateon 04-15 SED RATE 68 mm/hr High 0-20 [facility] Comment on above: Order Comment: Comme nts: Add onto previous labs if possible Performed By: #### L 501.6710, L101.9900 ####[facility] [address] [place], [address] Gram Stainon 04-15-[address] [facility] Comment on above: Performed By: #### M 100.2000, M100.3000 ####[facility] [address] [place], [address] M8200.1075on 04-15-2024 M8200.1075 Pending MRSA PCR MRSA NEGATIVE STAPH. AUREUS PCR STAPH. AUREUS NEGATIVE Normal [facility] Comment on above: Performed By: #### M 8200.1075 ####[facility] [address] [place], [address] Prothrombin Time w/INRon INR Coag (PPP) [Relative time] 1.4 {INR} Normal [facility] Comment on above: Performed By: #### L 300.3900, L500.4050, L501.9520, L100.0100 ####[facility] [address] [place], [address] PT Coag (PPP) [Time] 16.7 s High 11.7-14.9 [facility] Comment on above: Performed By: #### L 300.3900, L500.4050, L501.9520, L100.0100 ####[facility] [address] [place], [address] Thyroid Stim Hormone (TSH)on 04-15-2024 TSH 0.665 uIU/mL Normal 0.358-3.740 [facility] Comment on above: Performed By: #### L 300.3900, L500.4050, L501.9520, L100.0100 ####[facility] [address] [place], [address] Ankle Brachial Indexon 04-14 Ankle Brachial Index Normal [facility] Bedside Glucoseon 04-14-2024 FINGERSTICK GLU 310 mg/dL High 74-106 [facility] Comment on above: Result Comment: FANG GEMENT OF PATIENT CARE PER NURSING PROTOCOL Performed By: #### L 501.080 ####[facility] [address] [place], [address] FINGERSTICK GLU 190 mg/dL High 74-106 [facility] Comment on above: Result Comment: FANG GEMENT OF PATIENT CARE PER NURSING PROTOCOL Performed By: #### L 501.080 ####[facility] [address] [place], [address] CBC W/Diff, Automatedon 03-24 Absolute Lymph 1.36 X10 3/uL Normal 0.83-4.51 [facility] Comment on above: Performed By: #### L 503.6005, L500.4050, L100.0100 ####[facility] [address] [place], [address] Absolute Neut 11.3 X10 3/uL High 2.0-7.7 [facility] Comment on above: Performed By: #### L 503.6005, L500.4050, L100.0100 ####[facility] [address] [place], [address] Basophils/100 WBC (Bld) 0.3 % Normal 0-1 [facility] Comment on above: Performed By: #### L 503.6005, L500.4050, L100.0100 ####[facility] [address] [place], [address] Eosinophils/100 WBC (Bld) 0.3 % Normal 0-5 [facility] Comment on above: Performed By: #### L 503.6005, L500.4050, L100.0100 ####[facility] [address] [place], [address] Erythrocyte distribution width (RBC) [Ratio] 15.1 % High 11.6-14.6 [facility] Comment on above: Performed By: #### L 503.6005, L500.4050, L100.0100 ####[facility] [address] [place], [address] Hematocrit (Bld) [Volume fraction] 35.3 % Low 40-54 [facility] Comment on above: Performed By: #### L 503.6005, L500.4050, L100.0100 ####[facility] [address] [place], [address] Hemoglobin (Bld) [Mass/Vol] 11.3 g/dL Low 13.0-16.5 [facility] Comment on above: Performed By: #### L 503.6005, L500.4050, L100.0100 ####[facility] [address] [place], [address] IG% 0.600 Normal 0.0-0.9 [facility] Comment on above: Result Comment: IG% - Immature Granulocytes (promyelocytes, myelocytes andmetamyelocytes) > 1% indicates that a LEFT SHIFT is Present. Performed By: #### L 503.6005, L500.4050, L100.0100 ####[facility] [address] [place], [address] Lymphocytes/100 WBC (Bld) 9.7 % Low 19-41 [facility] Comment on above: Performed By: #### L 503.6005, L500.4050, L100.0100 ####[facility] [address] [place], [address] MCH (RBC) [Entitic mass] 30.5 pg Normal 27.0-32.0 [facility] Comment on above: Performed By: #### L 503.6005, L500.4050, L100.0100 ####[facility] [address] [place], [address] MCHC (RBC) [Mass/Vol] 32.0 g/dL Normal 32-36 [facility] Comment on above: Performed By: #### L 503.6005, L500.4050, L100.0100 ####[facility] [address] [place], [address] MCV (RBC) [Entitic vol] 95.1 fL High 80-94 [facility] Comment on above: Performed By: #### L 503.6005, L500.4050, L100.0100 ####[facility] [address] [place], [address] Monocytes/100 WBC (Bld) 8.6 % Normal 0-10 [facility] Comment on above: Performed By: #### L 503.6005, L500.4050, L100.0100 ####[facility] [address] [place], [address] Neutrophils/100 WBC (Bld) 80.5 % High 47-70 [facility] Comment on above: Performed By: #### L 503.6005, L500.4050, L100.0100 ####[facility] [address] [place], [address] Nucleated RBC (Bld) [#/Vol] 0 10*3/uL Normal 0-5 [facility] Comment on above: Performed By: #### L 503.6005, L500.4050, L100.0100 ####[facility] [address] [place], [address] Platelet mean volume (Bld) [Entitic vol] 10.8 fL Normal 6.2-12.0 [facility] Comment on above: Performed By: #### L 503.6005, L500.4050, L100.0100 ####[facility] [address] [place], [address] Platelets (Bld) [#/Vol] 255 10*3/uL Normal 150-450 [facility] Comment on above: Performed By: #### L 503.6005, L500.4050, L100.0100 ####[facility] [address] [place], [address] RBC (Bld) [#/Vol] 3.71 10*6/uL Low 4.6-6.2 [facility] Comment on above: Performed By: #### L 503.6005, L500.4050, L100.0100 ####[facility] [address] [place], [address] RDW SD 52.1 fl High 35.1-43.9 [facility] Comment on above: Performed By: #### L 503.6005, L500.4050, L100.0100 ####[facility] [address] [place], [address] WBC (Bld) [#/Vol] 14.0 10*3/uL High 4.4-11.0 [facility] Comment on above: Performed By: #### L 503.6005, L500.4050, L100.0100 ####[facility] [address] [place], [address] CNOVon 04-14-2024 [facility]24 C-REACTIVE PROT 267.00 mg/L High 0.0-3.0 [facility] Comment on above: Result Comment: C-Re active Protein (CRP) provides useful information for thediagnosis, therapy and monitoring of inflammatory processesand associated diseases. For the evaluation of Relative Riskfor Cardiovascular Disease, a High Sensitivity CRP (HSCRP)should be ordered. Performed By: #### L 101.9900, L501.6710 ####[facility] [address] [place], [address] Comprehensive Metabolic Prof ilon 04-14-2024 Albumin [Mass/Vol] 2.7 g/dL Low 3.2-5.0 [facility] Comment on above: Performed By: #### L 503.6005, L500.4050, L100.0100 ####[facility] [address] [place], [address] Albumin/Globulin [Mass ratio] 0.5 {ratio} Low 0.9-2.4 [facility] Comment on above: Performed By: #### L 503.6005, L500.4050, L100.0100 ####[facility] [address] [place], [address] ALK P 62 U/L Normal 45-117 [facility] Comment on above: Performed By: #### L 503.6005, L500.4050, L100.0100 ####[facility] [address] [place], [address] ALT [Catalytic activity/Vol] 11 U/L Low 16-61 [facility] Comment on above: Performed By: #### L 503.6005, L500.4050, L100.0100 ####[facility] [address] [place], [address] AST [Catalytic activity/Vol] 15 U/L Normal 15-37 [facility] Comment on above: Performed By: #### L 503.6005, L500.4050, L100.0100 ####[facility] [address] [place], [address] Bilirubin [Mass/Vol] 0.50 mg/dL Normal 0.20-1.00 [facility] Comment on above: Result Comment: For patients on eltrombopag therapy, use of Dimension [place] TBIL is not recommended. Performed By: #### L 503.6005, L500.4050, L100.0100 ####[facility] [address] [place], [address] BUN/CRE 9.5 RATIO Low 10-20 [facility] Comment on above: Performed By: #### L 503.6005, L500.4050, L100.0100 ####[facility] [address] [place], [address] CA,Total 8.6 mg/dL Normal 8.5-10.1 [facility] Comment on above: Performed By: #### L 503.6005, L500.4050, L100.0100 ####[facility] [address] [place], [address] Chloride [Moles/Vol] 96 mmol/L Low 98-107 [facility] Comment on above: Performed By: #### L 503.6005, L500.4050, L100.0100 ####[facility] [address] [place], [address] CO2 [Moles/Vol] 32.0 mmol/L Normal 21.0-32.0 [facility] Comment on above: Performed By: #### L 503.6005, L500.4050, L100.0100 ####[facility] [address] [place], [address] Creatinine [Mass/Vol] 2.84 mg/dL High 0.70-1.30 [facility] Comment on above: Result Comment: The validity of the calculated GFR GFRAA in patients over70 years has not been determined. Clinical correlation isessential. Performed By: #### L 503.6005, L500.4050, L100.0100 ####[facility] [address] [place], [address] ECRCL 21.22 ml/min Normal [facility] Comment on above: Performed By: #### L 503.6005, L500.4050, L100.0100 ####[facility] [address] [place], [address] EST GFR - AA 27 mL/min Low >60 [facility] Comment on above: Result Comment: Afri can [place] GFR Calc Performed By: #### L 503.6005, L500.4050, L100.0100 ####[facility] [address] [place], [address] GAP 8 Normal 5-15 [facility] Comment on above: Performed By: #### L 503.6005, L500.4050, L100.0100 ####[facility] [address] [place], [address] GFR/1.73 sq M.predicted among non-blacks MDRD (S/P/Bld) [Vol rate/Area] 23 mL/min/{1.73_m2} Low >60 [facility] Comment on above: Result Comment: Non- GFR Calc Performed By: #### L 503.6005, L500.4050, L100.0100 ####[facility] [address] [place], [address] Globulin (S) [Mass/Vol] 5.3 g/dL High 2.2-4.2 [facility] Comment on above: Performed By: #### L 503.6005, L500.4050, L100.0100 ####[facility] [address] [place], [address] Glucose [Mass/Vol] 130 mg/dL High 74-106 [facility] Comment on above: Result Comment: Fast ing Glucose result greater than or equal to 126 mg/dLsuggests DIABETES MELLITUS per A.D.A. criteria. Performed By: #### L 503.6005, L500.4050, L100.0100 ####[facility] [address] [place], [address] Potassium [Moles/Vol] 3.7 mmol/L Normal 3.5-5.1 [facility] Comment on above: Performed By: #### L 503.6005, L500.4050, L100.0100 ####[facility] [address] [place], [address] Sodium [Moles/Vol] 136 mmol/L Normal 136-145 [facility] Comment on above: Performed By: #### L 503.6005, L500.4050, L100.0100 ####[facility] [address] [place], [address] T PROT 8.0 g/dL Normal 6.4-8.2 [facility] Comment on above: Performed By: #### L 503.6005, L500.4050, L100.0100 ####[facility] [address] [place], [address] Urea nitrogen [Mass/Vol] 27 mg/dL High 7-18 [facility] Comment on above: Performed By: #### L 503.6005, L500.4050, L100.0100 ####[facility] [address] [place], [address] Emergency Department Summary on 04-14-2024 Emergency Department Summary Normal [facility] Erythrocyte Sed Rateon 04-14 SED RATE 87 mm/hr High 0-20 [facility] Comment on above: Performed By: #### L 101.9900, L501.6710 ####[facility] [address] [place], [address] Foot min 3 Viewson 4 Foot min [address] [facility] H AND P Exam - Hospitaliston 04-14-2024 H&P Exam - Hospitalist Normal [facility] Lactic Acidon 04-14-2024 Lactate [Moles/Vol] 1.6 mmol/L Normal 0.4-1.9 [facility] Comment on above: Order Comment: Y Performed By: #### L 503.6005, L500.4050, L100.0100 ####[facility] [address] [place], [address] CNPNon 04-13-2024 CNPN Normal [facility] CNPNon 04-05-2024 CNPN Normal [facility] CNOVon 03-28-2024 CNOV Normal [facility] Comprehensive metabolic 2000 panelon 03-28-2024 Albumin [Mass/Vol] 3.2 g/dL Low 3.9-4.9 [facility] Comment on above: Order Comment: Speci men Type: BLOOD SPECIMENOrdering Facility: [facility] Address: [address] [place] [address] Performed By: #### 2 4323-8 ####[facility] LABCLIA [id number] [place] [address] [place] ALP [Catalytic activity/Vol] 65 U/L Normal 38-113 [facility] Comment on above: Order Comment: Speci men Type: BLOOD SPECIMENOrdering Facility: [facility] Address: [address] [place] [address] Performed By: #### 2 4323-8 ####[facility] LABCLIA [id number] [place] [address] [place] ALT [Catalytic activity/Vol] 10 U/L Normal 10-54 [facility] Comment on above: Order Comment: Speci men Type: BLOOD SPECIMENOrdering Facility: [facility] Address: [address] [place] [address] Performed By: #### 2 4323-8 ####[facility] LABCLIA [id number] [place] [id number] [place] Anion gap [Moles/Vol] 12 mmol/L Normal 8-15 [facility] Comment on above: Order Comment: Speci men Type: BLOOD SPECIMENOrdering Facility: [facility] Address: [address] [place], [place] [id number] Performed By: #### 2 4323-8 ####[facility] LABCLIA [id number] [place] [address] [place] AST [Catalytic activity/Vol] 12 U/L Low 14-40 [facility] Comment on above: Order Comment: Speci men Type: BLOOD SPECIMENOrdering Facility: [facility] Address: [address] [place] [address] Performed By: #### 2 4323-8 ####[facility] LABCLIA [id number] [place] [address] [place] Bilirubin [Mass/Vol] 0.2 mg/dL Normal 0.2-1.3 [facility] Comment on above: Order Comment: Speci men Type: BLOOD SPECIMENOrdering Facility: [facility] Address: [address] [place] [address] Performed By: #### 2 4323-8 ####[facility] LABCLIA [id number] [place] [address] [place] Calcium [Mass/Vol] 8.9 mg/dL Normal 8.5-10.2 [facility] Comment on above: Order Comment: Speci men Type: BLOOD SPECIMENOrdering Facility: [facility] Address: [address] [place] [address] Performed By: #### 2 4323-8 ####[facility] LABCLIA [id number] [place] [id number] [place] Chloride [Moles/Vol] 93 mmol/L Low 98-107 [facility] Comment on above: Order Comment: Speci men Type: BLOOD SPECIMENOrdering Facility: [facility] Address: [address] [place], [place] [id number] Performed By: #### 2 4323-8 ####[facility] LABCLIA [id number] [place] [address] [place] CO2 [Moles/Vol] 28 mmol/L Normal 22-30 [facility] Comment on above: Order Comment: Speci men Type: BLOOD SPECIMENOrdering Facility: [facility] Address: [address] [place] [address] Performed By: #### 2 4323-8 ####[facility] LABIA [id number] [place] [address] [place] Creatinine [Mass/Vol] 4.23 mg/dL High 0.73-1.22 [facility] Comment on above: Order Comment: Speci men Type: BLOOD SPECIMENOrdering Facility: [facility] Address: [address] [place] [address] Performed By: #### 2 4323-8 ####[facility] [id number] [place] [address] [place] Creatinine and Glomerular filtration rate.predicted panel (S/P/Bld) 13 mL/min/1.73m??? Low >=60 [facility] Comment on above: Order Comment: Speci men Type: BLOOD SPECIMENOrdering Facility: [facility] Address: [address] [place] [address] Result Comment: Tessa mated Glomerular Filtration Rate [...] actual GFR. Performed By: #### 2 4323-8 ####[facility] [id number] [place] [address] [place] Glucose [Mass/Vol] 371 mg/dL High 74-99 [facility] Comment on above: Order Comment: Speci men Type: BLOOD SPECIMENOrdering Facility: [facility] Address: [address] [place] [id number] Result Comment: The [place] Diabetes Association (ADA) provides guidance for cutoff [...] Standards of Medical Care in Diabetes 2016, [place] Diabetes Association. Diabetes Care. 2016.39(Suppl 1). Performed By: #### 2 4323-8 ####[facility] LABIA [id number] [place] [address] [place] Potassium [Moles/Vol] 5.0 mmol/L Normal 3.7-5.1 [facility] Comment on above: Order Comment: Speci men Type: BLOOD SPECIMENOrdering Facility: [facility] Address: [address] [place] [address] Performed By: #### 2 4323-8 ####[facility] LABIA [id number] [place] [address] [place] Protein [Mass/Vol] 6.5 g/dL Normal 6.3-8.0 [facility] Comment on above: Order Comment: Speci men Type: BLOOD SPECIMENOrdering Facility: [facility] Address: [address] [place] [address] Performed By: #### 2 4323-8 ####[facility] LABIA [id number] [place] [address] [place] Sodium [Moles/Vol] 133 mmol/L Low 136-144 [facility] Comment on above: Order Comment: Speci men Type: BLOOD SPECIMENOrdering Facility: [facility] Address: [address] [place] [address] Performed By: #### 2 4323-8 ####[facility] LABCLIA [id number] [place] [address] [place] Urea nitrogen [Mass/Vol] 37 mg/dL High 9-24 [facility] Comment on above: Order Comment: Speci men Type: BLOOD SPECIMENOrdering Facility: [facility] Address: [address] [place] [address] Performed By: #### 2 4323-8 ####[facility] LABCLIA [id number] [place] [address] [place] HbA1c (Bld)on 03-28-2024 Average glucose Estimated from glycated hemoglobin (Bld) [Mass/Vol] 206 mg/dL Normal [facility] Comment on above: Order Comment: Speci men Type: BLOOD SPECIMENOrdering Facility: [facility] Address: [address] [place] [address] Result Comment: eAG: (Estimated average glucose) is a calculated value from HgbA1c and is billing customer service representative of the average blood glucose level in the last 2-3 month period. Performed By: #### 5 5454-3 ####[facility] LABCLIA [id number] [place] [address] [place] HbA1c (Bld) [Mass fraction] 8.8 % High 4.3-5.6 [facility] Comment on above: Order Comment: Speci men Type: BLOOD SPECIMENOrdering Facility: [facility] Address: [address] [place] [address] Result Comment: [place] Diabetes Association guidelines indicate that patients with HgbA1c in the range 5.7-6.4% are at increased risk for development of diabetes, and intervention by lifestyle modification may be beneficial. HgbA1c greater or equal to 6.5% is considered diagnostic of diabetes. Performed By: #### 5 5454-3 ####[facility] LABCLIA [id number] [place] [address] [place] CNOVon 01-06-2024 CNOV Normal [facility] KORon 09-08-2023 Potassium [Moles/Vol] 3.7 mmol/L Normal 3.5-5.0 [facility] Comment on above: Performed By: #### K OR #### [facility] [address] [place] [address] LABORATORYOrdered By: Miguelina Ramirez on 09-08-2023 Blood Glucose Testing Reason Routine (09/08/23 2:30 PM) [facility] Work Phone: Glucose [Mass/Vol] 111 mg/dL Normal 82 - 115 mg/dL [facility] Work Phone: LABORATORYOrdered By: Nelli Gar on 09-08-2023 Potassium [Moles/Vol] 3.7 mmol/L Normal 3.5 - 5.0 mEq/L [facility] LABORATORYOrdered By: Kailey Sanchez on 09-08-2023 Glucose [Mass/Vol] 147 mg/dL High 82 - 115 mg/dL [facility] Work Phone: HEMOGLOBIN A1C (POC)on 12-06 HbA1c (Bld) [Mass fraction] 8.1 % Abnormal 4.2 - 5.6 % [facility] HEMOGLOBIN A1C (POC)on 09-06 HbA1c (Bld) [Mass fraction] 8.4 % Abnormal 4.2 - 5.6 % [facility] Comprehensive metabolic 2000 panelon 03-06-2022 Albumin [Mass/Vol] 3.9 g/dL 3.9 - 4.9 g/dL [facility] ALP [Catalytic activity/Vol] 56 U/L 38 - 113 U/L [facility] ALT [Catalytic activity/Vol] 17 U/L 10 - 54 U/L [facility] Anion gap [Moles/Vol] 13 mmol/L 9 - 18 mmol/L [facility] AST [Catalytic activity/Vol] 13 U/L Low 14 - 40 U/L [facility] Bilirubin [Mass/Vol] 0.4 mg/dL 0.2 - 1 .3 mg/dL [facility] Calcium [Mass/Vol] 9.1 mg/dL 8.5 - 10. 2 mg/dL [facility] Chloride [Moles/Vol] 95 mmol/L Low 97 - 10 5 mmol/L [facility] CO2 [Moles/Vol] 30 mmol/L 22 - 30 mmol/L [facility] Creatinine [Mass/Vol] 4.13 mg/dL High 0.73 - 1.22 mg/dL [facility] Estimated Glomerular Filtration Rate 14 mL/min/1.73m Low >=60 mL/min/1.73 m [facility] Glucose [Mass/Vol] 239 mg/dL High 74 - 99 mg/dL [facility] Potassium [Moles/Vol] 4.9 mmol/L 3.7 - 5.1 mmol/L [facility] Protein [Mass/Vol] 7.2 g/dL 6.3 - 8.0 g/dL [facility] Sodium [Moles/Vol] 138 mmol/L 136 - 144 mmol/L [facility] Urea nitrogen [Mass/Vol] 49 mg/dL High 9 - 24 mg/dL [facility] LIPID PANEL, NONFASTINGon Cholesterol [Mass/Vol] 146 mg/dL <200 mg/dL [facility] HDL Cholesterol, Nonfasting 46 mg/dL >39 mg/dL [facility] LDL Cholesterol, Nonfasting 89 mg/dL <100 mg/dL [facility] LDL/HDL Ratio, Nonfasting 1.93 mg/dL <2.54 mg/dL [facility] Non HDL Cholesterol, Nonfasting 100 mg/dL <130 mg/dL [facility] Total Chol/HDL Ratio, Nonfasting 3.17 mg/dL <5.10 mg/dL [facility] Triglycerides, Nonfasting 55 mg/dL <150 mg/dL [facility] VLDL Cholesterol, Nonfasting 11 mg/dL <30 mg/dL [facility] HbA1c (Bld)on 03-05-2022 Average glucose Estimated from glycated hemoglobin (Bld) [Mass/Vol] 209 mg/dL [facility] HbA1c (Bld) [Mass fraction] 8.9 % High 4.3 - 5.6 % [facility] Basophil percentageon 2021 Chloride [Moles/Vol] 103 mmol/L 98-107 [facility] Work Phone: Glucose [Mass/Vol] 263 mg/dL 74-106 [facility] Work Phone: Comment on above: Glucose result great er than or equal to 200 mg/dLsuggests DIABETES MELLITUS per A.D.A. criteria. Potassium [Moles/Vol] 4.3 mmol/L 3.5-5.1 [facility] Work Phone: [phone] Sodium [Moles/Vol] 138 mmol/L 136-145 [facility] Work Phone: [phone] WBC (Bld) [#/Vol] 8.1 10*3/uL 4.4-11.0 [facility] Work Phone: [phone] Blood erythrocytes count (nu mber/volume)on 11-06-2021 RBC (Bld) [#/Vol] 3.75 10*6/uL 4.6-6.2 [facility] Work Phone: [phone] Blood hemoglobin measurement (mass/volume)on 11-06-2021 Hemoglobin (Bld) [Mass/Vol] 11.4 g/dL 13.0-16.5 [facility] Work Phone: [phone] Blood platelet mean volumeon 11-06-2021 Platelet mean volume (Bld) [Entitic vol] 11.2 fL 6.2-12.0 [facility] Work Phone: [phone] Determination of erythrocyte mean corpuscular volume (MCV)on 11-06-2021 MCV (RBC) [Entitic vol] 94.9 fL 80-94 [facility] Work Phone: [phone] Hematocrit Auto (Bld) [Volum e fraction]on 11-06-2021 Hematocrit (Bld) [Volume fraction] 35.6 % 40-54 [facility] Work Phone: [phone] Laboratory - Chemistry and C hemistry - challengeon 11-06-2021 CO2 [Moles/Vol] 30.0 mmol/L 21.0-32.0 [facility] Work Phone: [phone] Urea nitrogen/Creatinine [Mass ratio] 12.6 mg/mg 10-20 [facility] Work Phone: [phone] Laboratory - Hematology and Cell countson 11-06-2021 Erythrocyte distribution width (RBC) [Entitic vol] 43.0 fL 35.1-43.9 [facility] Work Phone: [phone] Erythrocyte distribution width (RBC) [Ratio] 12.4 % 11.6-14.6 [facility] Work Phone: [phone] MCH (RBC) [Entitic mass] 30.4 pg 27.0-32.0 [facility] Work Phone: [phone] MCHC Auto (RBC) [Mass/Vol]on 11-06-2021 MCHC (RBC) [Mass/Vol] 32.0 g/dL 32-36 [facility] Work Phone: No Panel Informationon 11-06 Estimated Creatinine Clearance Calc 12.37 ml/min [facility] Work Phone: [phone] Estimated GFR (MDRD) Amer 17 mL/min >60 [facility] Work Phone: Comment on above: GFR Calc Estimated GFR (MDRD) Non-Af Amer 14 mL/min >60 [facility] Work Phone: Comment on above: Non- GFR Calc Platelets bldon 11-06-2021 Platelets (Bld) [#/Vol] 160 10*3/uL 150-450 [facility] Work Phone: [phone] Serum or plasma calcium lilli urement (mass/volume)on 11-06-2021 Calcium [Mass/Vol] 9.0 mg/dL 8.5-10.1 [facility] Work Phone: [phone] Serum or plasma creatinine m easurement (mass/volume)on 11-06-2021 Creatinine [Mass/Vol] 4.30 mg/dL 0.70-1.30 [facility] Work Phone: Comment on above: The validity of the calculated GFR & GFRAA in patients over 70 years has not been determined. Clinical correlation is essential. Serum or plasma urea nitroge n measurement (mass/volume)on 11-06-2021 Urea nitrogen [Mass/Vol] 54 mg/dL 7-18 [facility] Work Phone: [phone] Thin prep Papanicolaou smear with manual screeningon 11-06-2021 Thin prep Papanicolaou smear with manual screening 5 5-15 [facility] Work Phone: XR Foot - bilateral AP and L ateral and obliqueon 03-04-2021 IMPRESSION: No acute bony finding. 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 Plantar spurs Senior Back End Java Developer: NICHELLE Transcribe Date/Time: Mar 04 2021 12:13P Dictated by : FERNANDO JANE MD This examination was interpreted and the report reviewed and electronically signed by: FERNANDO JANE MD on Mar 04 2021 12:15PM EST [facility] Radiology Study observation (narrative) [facility] XR Foot - bilateral AP and L ateral and obliqueOrdered By: Ccf Provider on 03-04-2021 [facility] Office Visiton 10-27-2016 Documentation of current medications (procedure) Done Invalid Interpretation Code [facility] Work Phone: [phone] Fall risk assessment No Invalid Interpretation Code [facility] Work Phone: [phone] Protein mass conc Done [facility] Work Phone: [phone] Replaced Document: Eileen Desiree CG Observationson 10-27-2016 EKG QRS axis -23 deg [facility] Work Phone: [phone] electrocardiogram interpretation Possible atrial fibrillation - Nonspecific T-abnormality. ABNORMAL Invalid Interpretation Code [facility] Work Phone: [phone] GE use only - for [employer] import when terms are not otherwise specified 431 ms Invalid Interpretation Code [facility] Work Phone: [phone] Interpretation Possible atrial fibrillation - Nonspecific T-abnormality. ABNORMAL [facility] Work Phone: P Bucklin 1 deg [facility] Work Phone: P wave axis, electrocardiogram 1 deg Invalid Interpretation Code [facility] Work Phone: RI Interval 0 ms [facility] Work Phone: RI interval, electrocardiogram 0 ms Invalid Interpretation Code [facility] Work Phone: Pulse (Heart Rate) 69 /min Invalid Interpretation Code [facility] Work Phone: QRS axis, electrocardiogram -23 deg Invalid Interpretation Code [facility] Work Phone: QRS Duration 114 ms [facility] Work Phone: QRS duration, electrocardiogram 114 ms Invalid Interpretation Code [facility] Work Phone: QT Interval new path ms [facility] Work Phone: [phone] QT interval, electrocardiogram new path ms Invalid Interpretation Code [facility] Work Phone: [phone] QTc Liriano 431 ms [facility] Work Phone: [phone] T Bucklin 90 deg [facility] Work Phone: [phone] T wave axis, electrocardiogram 90 deg Invalid Interpretation Code [facility] Work Phone: [phone] Clinical Lists Update: 10-26-2016 Tobacco smoking status NHIS Never smoker [facility] Work Phone: [phone] Tobacco use CPHS Never smoker Invalid Interpretation Code [facility] Work Phone: [phone] Clinical Lists Update: 10-14-2016 Anion gap 14 mmol/L Invalid Interpretation Code [facility] Work Phone: [phone] Anion gap [Moles/Vol] 14 mmol/L [facility] Work Phone: [phone] Calcium 9.8 mg/dL Invalid Interpretation Code [facility] Work Phone: [phone] Chloride 97 mmol/L Invalid Interpretation Code [facility] Work Phone: [phone] CO2 25 mmol/L Invalid Interpretation Code [facility] Work Phone: [phone] CO2 (BldV) [Partial pressure] 25 mmol/L [facility] Work Phone: [phone] Creatinine 1.69 mg/dL High [facility] Work Phone: [phone] Glucose 264 mg/dL High [facility] Work Phone: [phone] Glucose [Mass/Vol] 264 mg/dL High [facility] Work Phone: [phone] Potassium 4.5 mmol/L Invalid Interpretation Code [facility] Work Phone: [phone] Sodium 136 mmol/L Invalid Interpretation Code [facility] Work Phone: [phone] Thyroid stimulating hormone (TSH) 1.29 u[iU]/mL Invalid Interpretation Code [facility] Work Phone: [phone] Urea nitrogen 21 mg/dL Invalid Interpretation Code [facility] Work Phone: [phone] 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 Nando Wiggins MD Work Phone: [facility] 01-29-2025 09:48-0400 Body temperature 97.9 [degF] Dr. Nando Wiggins MD Work Phone: [facility] 01-29-2025 09:48-0400 Diastolic blood pressure 59 mm[Hg] Dr. Nando Wiggins MD Work Phone: [facility] 01-29-2025 09:48-0400 Heart rate 60 /min Dr. Nando Wiggins MD Work Phone: [facility] 01-29-2025 09:48-0400 Respiratory rate 14 /min Dr. Nando Wiggins MD Work Phone: [facility] 01-29-2025 09:48-0400 SaO2% (BldA) [Mass fraction] 96 % Dr. Nando Wiggins MD Work Phone: [facility] 01-29-2025 09:48-0400 Systolic blood pressure 125 mm[Hg] Dr. Nando Wiggins MD Work Phone: [facility] 01-29-2025 05:26-0400 Body mass index (BMI) [Ratio] 30.4 kg/m2 Dr. Nando Wiggins MD Work Phone: [facility] 01-29-2025 05:26-0400 Body weight 96.[address] Nando Wiggins MD Work Phone: [facility] 01-27-2025 07:29-0400 Inhaled oxygen flow rate 3 L/min Dr. Nando Wiggins MD Work Phone: [facility] 01-26-2025 14:04-0400 Body height 177.[address] Nando Wiggins MD Work Phone: [facility] 01-25-2025 17:00-0400 Diastolic blood pressure 73 mm[Hg] Dr. Nando Wiggins MD Work Phone: [facility] 01-25-2025 17:00-0400 Heart rate 90 /min Dr. Nando Wiggins MD Work Phone: [facility] 01-25-2025 17:00-0400 Respiratory rate 16 /min Dr. Nando Wiggins MD Work Phone: [facility] 01-25-2025 17:00-0400 SaO2% (BldA) [Mass fraction] 90 % Dr. Nando Wiggins MD Work Phone: [facility] 01-25-2025 17:00-0400 Systolic blood pressure 125 mm[Hg] Dr. Nando Wiggins MD Work Phone: [facility] 01-25-2025 15:27-0400 Body height 177.[address] Nando Wiggins MD Work Phone: [facility] 01-25-2025 15:27-0400 Body mass index (BMI) [Ratio] 31.3 kg/m2 Dr. Nando Wiggins MD Work Phone: [facility] 01-25-2025 15:27-0400 Body temperature 97.5 [degF] Dr. Nando Wiggins MD Work Phone: [facility] 01-25-2025 15:27-0400 Body weight 99.[address] Nando Wiggins MD Work Phone: [facility] 11-27-2024 07:37-0400 SaO2% (BldA) [Mass fraction] 98 % HUSAM YAN [facility] Comment on above: Order Comment: Specimen Type: ARTERIAL B LOOD SPECIMENOrdering Facility: [facility] Address: [address] [place] [address] Performed By: #### A LLBG ####[facility] [id number] [place] [id number] [place] 11-26-2024 21:30-0400 SaO2% (BldA) [Mass fraction] 97 % HUSAM YAN [facility] Comment on above: Order Comment: Specimen Type: ARTERIAL B LOOD SPECIMENOrdering Facility: [facility] Address: [address] [place] [address] Performed By: #### A LLBG ####[facility] [id number] [address] [place] 11-26-2024 18:06-0400 SaO2% (BldA) [Mass fraction] 99 % HUSAM YAN [facility] Comment on above: Order Comment: Specimen Type: ARTERIAL B LOOD SPECIMENOrdering Facility: [facility] Address: [address] [place] [address] Performed By: #### A LLBG ####[facility] [id number] [place] [id number] [place] 11-26-2024 13:47-0400 SaO2% (BldA) [Mass fraction] 97 % HUSAM YAN [facility] Comment on above: Order Comment: Specimen Type: ARTERIAL B LOOD SPECIMENOrdering Facility: [facility] Address: [address] [place] [address] Performed By: #### A LLMG ####[facility] [id number] [address] [place] [address] [place] 11-26-2024 07:36-0400 SaO2% (BldA) [Mass fraction] 99 % HUSAM YAN [facility] Comment on above: Order Comment: Specimen Type: ARTERIAL B LOOD SPECIMENOrdering Facility: [facility] Address: [address] [place], [place] [id number] Performed By: #### A LLBG ####[facility] [id number] [address] [address] [place] 11-26-2024 00:22-0400 SaO2% (BldA) [Mass fraction] 97 % HUSAM YAN [facility] Comment on above: Order Comment: Specimen Type: ARTERIAL B LOOD SPECIMENOrdering Facility: [facility] Address: [address] [place] [address] Performed By: #### A LLBG ####[facility] [id number] [place] [id number] [place] 11-25-2024 20:35-0400 SaO2% (BldA) [Mass fraction] 98 % HUSAM YAN [facility] Comment on above: Order Comment: Specimen Type: ARTERIAL B LOOD SPECIMENOrdering Facility: [facility] Address: [address] [place], [place] [id number] Performed By: #### A LLBG ####[facility] [id number] [address] [address] [place] 11-25-2024 15:08-0400 SaO2% (BldA) [Mass fraction] 97 % HUSAM YAN [facility] Comment on above: Order Comment: Specimen Type: ARTERIAL B LOOD SPECIMENOrdering Facility: [facility] Address: [address] [place], [place] [id number] Performed By: #### A LLBG ####[facility] [id number] [address] [address] [place] 11-25-2024 11:07-0400 SaO2% (BldA) [Mass fraction] 99 % HUSAM YAN [facility] Comment on above: Order Comment: Specimen Type: ARTERIAL B LOOD SPECIMENOrdering Facility: [facility] Address: [address] [place], [place] [id number] Performed By: #### A LLBG ####[facility] [id number] [place] [id number] [place] [facility] 11-25-2024 08:20-0400 SaO2% (BldA) [Mass fraction] 97 % HUSAM YAN [facility] Comment on above: Order Comment: Specimen Type: ARTERIAL B LOOD SPECIMENOrdering Facility: [facility] Address: [address] [place] [address] Performed By: #### A LLBG ####[facility] [id number] [place] [id number] [facility] 11-25-2024 00:43-0400 SaO2% (BldA) [Mass fraction] 92 % HUSAM YAN [facility] Comment on above: Order Comment: Specimen Type: ARTERIAL B LOOD SPECIMENOrdering Facility: [facility] Address: [address] [place] [address] Performed By: #### A LLBG ####[facility] [id number] [place] [id number] [facility] [place] 11-24-2024 16:34-0400 SaO2% (BldA) [Mass fraction] 94 % HUSAM YAN [facility] Comment on above: Order Comment: Specimen Type: ARTERIAL B LOOD SPECIMENOrdering Facility: [facility] Address: [address] [place] [address] Performed By: #### A LLBG ####[facility] [id number] [address] [address] [facility] [place] 11-24-2024 08:23-0400 SaO2% (BldA) [Mass fraction] 96 % HUSAM YAN [facility] Comment on above: Order Comment: Specimen Type: ARTERIAL B LOOD SPECIMENOrdering Facility: [facility] Address: [address] [place], [place] [id number] Performed By: #### A LLBG ####[facility] [id number] [address] [address] [facility] 11-24-2024 06:44-0400 SaO2% (BldA) [Mass fraction] 97 % HUSAM YAN [facility] Comment on above: Order Comment: Specimen Type: ARTERIAL B LOOD SPECIMENOrdering Facility: [facility] Address: [address] [place], [place] [address] Performed By: #### A LLBG ####[facility] [id number] [address] [address] [place] 11-24-2024 00:29-0400 SaO2% (BldA) [Mass fraction] 97 % HUSAM YAN [facility] Comment on above: Order Comment: Specimen Type: ARTERIAL B LOOD SPECIMENOrdering Facility: [facility] Address: [address] [place], [place] [address] Performed By: #### A LLBG ####[facility] [id number] [address] [address] [place] 11-23-2024 19:51-0400 SaO2% (BldA) [Mass fraction] 96 % Dr. Nando Wiggins MD Work Phone: [facility] Comment on above: Order Comment: Specimen Type: ARTERIAL B LOOD SPECIMENOrdering Facility: [facility] Address: [address] [place], [place] [id number] Performed By: #### A LLBG ####[facility] [id number] [address] [address] [place] 11-23-2024 14:00-0400 Diastolic blood pressure 55 mm[Hg] Dr. Nando Wiggins MD Work Phone: [facility] 11-23-2024 14:00-0400 Heart rate 30 /min Dr. Nando Wiggins MD Work Phone: [facility] 11-23-2024 14:00-0400 Respiratory rate 18 /min Dr. Nando Wiggins MD Work Phone: [facility] 11-23-2024 14:00-0400 Systolic blood pressure 120 mm[Hg] Dr. Nando Wiggins MD Work Phone: [facility] 11-22-2024 21:07-0400 Body temperature 97.8 [degF] Dr. Nando Wiggins MD Work Phone: [facility] 11-22-2024 08:46-0400 Body height 170.[address] Nando Wiggins MD Work Phone: [facility] 11-22-2024 08:46-0400 Body mass index (BMI) [Ratio] 34.7 kg/m2 Dr. Nando Wiggins MD Work Phone: [facility] 11-22-2024 08:46-0400 Body weight 100.[address] Nando Wiggins MD Work Phone: [facility] 11-09-2024 03:00-0400 Diastolic blood pressure 52 mm[Hg] Dr. Nando Wiggins MD Work Phone: [facility] 11-09-2024 03:00-0400 Heart rate 52 /min Dr. Nando Wiggins MD Work Phone: [facility] 11-09-2024 03:00-0400 SaO2% (BldA) [Mass fraction] 96 % Dr. Nando Wiggins MD Work Phone: [facility] 11-09-2024 03:00-0400 Systolic blood pressure 126 mm[Hg] Dr. Nando Wiggins MD Work Phone: [facility] 11-08-2024 22:11-0400 Body temperature 97.6 [degF] Dr. Nando Wiggins MD Work Phone: [facility] 11-08-2024 22:11-0400 Respiratory rate 18 /min Dr. Nando Wiggins MD Work Phone: [facility] 11-08-2024 19:36-0400 Body height 170.[address] Nando Wiggins MD Work Phone: [facility] 11-08-2024 19:36-0400 Body mass index (BMI) [Ratio] 32.5 kg/m2 Dr. Nando Wiggins MD Work Phone: [facility] 11-08-2024 19:36-0400 Body weight 94.[address] Nando Wiggins MD Work Phone: [facility] 10-29-2024 06:52-0400 Body mass index (BMI) [Ratio] 32.5 kg/m2 Dr. Nando Wiggins MD Work Phone: [facility] 10-29-2024 06:52-0400 Body weight 94.[address] Nando Wiggins MD Work Phone: [facility] 10-29-2024 06:52-0400 Diastolic blood pressure 65 mm[Hg] Dr. Nando Wiggins MD Work Phone: [facility] 10-29-2024 06:52-0400 Heart rate 54 /min Dr. Nnado Wiggins MD Work Phone: [facility] 10-29-2024 06:52-0400 Respiratory rate 18 /min Dr. Nando Wiggins MD Work Phone: [facility] 10-29-2024 06:52-0400 SaO2% (BldA) [Mass fraction] 92 % Dr. Nando Wiggins MD Work Phone: [facility] 10-29-2024 06:52-0400 Systolic blood pressure 129 mm[Hg] Dr. Nando Wiggins MD Work Phone: [facility] 10-17-2024 10:25-0400 Body temperature 98.6 [degF] Dr. Jean Yan MD Work Phone: [facility] 10-17-2024 10:25-0400 Diastolic blood pressure 72 mm[Hg] Dr. Jean Yan MD Work Phone: [facility] 10-17-2024 10:25-0400 Heart rate 56 /min Dr. Jean Yan MD Work Phone: [facility] 10-17-2024 10:25-0400 Respiratory rate 16 /min Dr. Jean Yan MD Work Phone: [facility] 10-17-2024 10:25-0400 SaO2% (BldA) [Mass fraction] 93 % Dr. Jean Yan MD Work Phone: [facility] 10-17-2024 10:25-0400 Systolic blood pressure 135 mm[Hg] Dr. Jean Yan MD Work Phone: [facility] 10-03-2024 09:08-0400 Body temperature 98 [degF] Dr. Jean Yan MD Work Phone: [facility] 10-03-2024 09:08-0400 Diastolic blood pressure 54 mm[Hg] Dr. Jean Yan MD Work Phone: [facility] 10-03-2024 09:08-0400 Heart rate 48 /min Dr. Jean Yan MD Work Phone: [facility] 10-03-2024 09:08-0400 Respiratory rate 14 /min Dr. Jean Yan MD Work Phone: [facility] 10-03-2024 09:08-0400 SaO2% (BldA) [Mass fraction] 94 % Dr. Jean Yan MD Work Phone: 3(994)325-821789 [place] [address] 10-03-2024 09:08-0400 Systolic blood pressure 132 mm[Hg] Dr. Jean Yan MD Work Phone: 6(146)034-075689 [place] [address] 09-24-2024 10:09-0400 Body mass index (BMI) [Ratio] 31.9 kg/m2 Dr. Jean Yan MD Work Phone: 9(207)115-793389 [place] [address] 09-24-2024 10:09-0400 Body temperature 96 [degF] Dr. Jean Yan MD Work Phone: 9(000)684-674189 [place] [address] 09-24-2024 10:09-0400 Diastolic blood pressure 40 mm[Hg] Dr. Jean Yan MD Work Phone: 2(870)099-989989 [place] [address] 09-24-2024 10:09-0400 Heart rate 44 /min Dr. Jean Yan MD Work Phone: 8(871)264-544689 [place] [address] 09-24-2024 10:09-0400 Respiratory rate 16 /min Dr. Jean Yan MD Work Phone: 7(629)591-089989 [place] [address] 09-24-2024 10:09-0400 Systolic blood pressure 121 mm[Hg] Dr. Jean Yan MD Work Phone: 9(363)103-734489 [place] [address] 09-20-2024 00:41-0400 Body weight 92.[address] Jean Yan MD Work Phone: 6(876)305-099089 [place] [address] 09-04-2024 12:16-0400 Body mass index (BMI) [Ratio] 29.9 kg/m2 Dr. Jean Yan MD Work Phone: 0(421)813-373789 [place] [address] 09-04-2024 12:16-0400 Body temperature 97.2 [degF] Dr. Jean Yan MD Work Phone: 8(049)399-938889 [place] [address] 09-04-2024 12:16-0400 Body weight 86.[address] Jean Yan MD Work Phone: 9(001)602-194889 [place] [address] 09-04-2024 12:16-0400 Diastolic blood pressure 59 mm[Hg] Dr. Jean Yan MD Work Phone: 9(916)974-117589 [place] [address] 09-04-2024 12:16-0400 Heart rate 53 /min Dr. Jean Yan MD Work Phone: 0(394)007-986689 [place] [address] 09-04-2024 12:16-0400 Respiratory rate 14 /min Dr. Jean Yan MD Work Phone: 4(199)170-485989 [place] [address] 09-04-2024 12:16-0400 SaO2% (BldA) [Mass fraction] 96 % Dr. Jean Yan MD Work Phone: 2(224)140-873589 [place] [address] 09-04-2024 12:16-0400 Systolic blood pressure 108 mm[Hg] Dr. Jean Yan MD Work Phone: 6(084)265-182989 [place] [address] 09-03-2024 14:19-0400 Body height 170.[address] Jena Yan MD Work Phone: 2(458)534-163489 [place] [address] 08-30-2024 21:37-0400 Inhaled oxygen flow rate 2 L/min Dr. Jean Yan MD Work Phone: 2(453)467-712089 [place] [address] 08-27-2024 08:54-0400 Body mass index (BMI) [Ratio] 31.9 kg/m2 Dr. Jean Yan MD Work Phone: 9(724)045-077489 [place] [address] 08-27-2024 08:54-0400 Diastolic blood pressure 61 mm[Hg] Dr. Jean Yan MD Work Phone: 5(737)290-034889 [place] [address] 08-27-2024 08:54-0400 Heart rate 66 /min Dr. Jean Yan MD Work Phone: 1(117)426-708289 [place] [address] 08-27-2024 08:54-0400 Respiratory rate 16 /min Dr. Jean Yan MD Work Phone: 0(810)563-649089 [place] [address] 08-27-2024 08:54-0400 Systolic blood pressure 100 mm[Hg] Dr. Jean Yan MD Work Phone: 8(567)945-211889 [place] [address] 08-21-2024 00:56-0400 Body temperature 97.4 [degF] Dr. Jean Yan MD Work Phone: 9(204)266-441989 [place] [address] 08-21-2024 00:56-0400 Body weight 92.[address] Jean Yan MD Work Phone: 1(368)983-626489 [place] [address] 08-20-2024 10:36-0400 Body mass index (BMI) [Ratio] 31.9 kg/m2 Dr. Jean Yan MD Work Phone: 0(036)302-651789 [place] [address] 08-20-2024 10:36-0400 Body temperature 97.4 [degF] Dr. Jean Yan MD Work Phone: 4(967)963-266089 [place] [address] 08-20-2024 10:36-0400 Diastolic blood pressure 39 mm[Hg] Dr. Jean Yan MD Work Phone: 0(756)185-704989 [place] [address] 08-20-2024 10:36-0400 Heart rate 42 /min Dr. Jean Yan MD Work Phone: 8(230)756-560289 [place] [address] 08-20-2024 10:36-0400 Respiratory rate 16 /min Dr. Jean Yan MD Work Phone: 3(953)653-570089 [place] [address] 08-20-2024 10:36-0400 Systolic blood pressure 123 mm[Hg] Dr. Jean Yan MD Work Phone: 1(538)274-580989 [place] [address] 08-01-2024 19:00-0400 Diastolic blood pressure 46 mm[Hg] Dr. Jean Yan MD Work Phone: 0(584)748-106189 [place] [address] 08-01-2024 19:00-0400 Heart rate 47 /min Dr. Jean Yan MD Work Phone: 8(586)069-961589 [place] [address] 08-01-2024 19:00-0400 Respiratory rate 18 /min Dr. Jean Yan MD Work Phone: 1(616)405-336089 [place] [address] 08-01-2024 19:00-0400 SaO2% (BldA) [Mass fraction] 98 % Dr. Jean Yan MD Work Phone: 8(107)043-440089 [place] [address] 08-01-2024 19:00-0400 Systolic blood pressure 113 mm[Hg] Dr. Jean Yan MD Work Phone: 2(423)557-929889 [place] [address] 08-01-2024 15:00-0400 Body temperature 98.1 [degF] Dr. Jean Yan MD Work Phone: 8(374)476-988689 [place] [address] 07-21-2024 02:32-0500 Body weight 92.[address] Jean Yan MD Work Phone: 3(708)066-340589 [place] [address] 07-20-2024 20:26-0500 Body temperature 98.1 [degF] Dr. Jean Yan MD Work Phone: 8(844)258-520889 [place] [address] 07-20-2024 20:26-0500 Diastolic blood pressure 47 mm[Hg] Dr. Jean Yan MD Work Phone: 3(495)023-052389 [place] [address] 07-20-2024 20:26-0500 Heart rate 56 /min Dr. Jean Yan MD Work Phone: 4(039)206-206489 [place] [address] 07-20-2024 20:26-0500 Respiratory rate 18 /min Dr. Jean Yan MD Work Phone: 9(130)679-259289 [place] [address] 07-20-2024 20:26-0500 SaO2% (BldA) [Mass fraction] 97 % Dr. Jean Yan MD Work Phone: 6(375)295-773689 [place] [address] 07-20-2024 20:26-0500 Systolic blood pressure 143 mm[Hg] Dr. Jean Yan MD Work Phone: 6(620)302-534389 [place] [address] 07-20-2024 05:46-0500 Body mass index (BMI) [Ratio] 31.8 kg/m2 Dr. Jean Yan MD Work Phone: 1(867)740-187789 [place] [address] 07-20-2024 05:46-0500 Body weight 92.[address] Jean Yan MD Work Phone: 6(678)406-994741 [place] [address] 07-16-2024 15:18-0500 Inhaled oxygen flow rate 2 L/min Dr. Jean Yan MD Work Phone: 7(107)935-675489 [place] [address] 07-11-2024 10:27-0500 Body mass index (BMI) [Ratio] 31.9 kg/m2 Dr. Jean Yan MD Work Phone: 4(036)285-200489 [place] [address] 07-11-2024 10:27-0500 Body temperature 96.7 [degF] Dr. Jean Yan MD Work Phone: 8(752)493-184989 [place] [address] 07-11-2024 10:27-0500 Diastolic blood pressure 45 mm[Hg] Dr. Jean Yan MD Work Phone: 7(239)571-042289 [place] [address] 07-11-2024 10:27-0500 Heart rate 60 /min Dr. Jean Yan MD Work Phone: 7(711)506-203989 [place] [address] 07-11-2024 10:27-0500 Respiratory rate 18 /min Dr. Jean Yan MD Work Phone: 2(357)560-294989 [place] [address] 07-11-2024 10:27-0500 Systolic blood pressure 119 mm[Hg] Dr. Jean Yan MD Work Phone: 2(293)171-822989 [place] [address] 07-07-2024 22:04-0500 Body temperature 97.8 [degF] Dr. Jean Yan MD Work Phone: 3(343)443-030089 [place] [address] 07-07-2024 22:04-0500 Diastolic blood pressure 61 mm[Hg] Dr. Jean Yan MD Work Phone: 4(453)021-650889 [place] [address] 07-07-2024 22:04-0500 Heart rate 74 /min Dr. Jean Yan MD Work Phone: 9(732)400-610989 [place] [address] 07-07-2024 22:04-0500 Respiratory rate 19 /min Dr. Jean Yan MD Work Phone: 0(690)875-312689 [place] [address] 07-07-2024 22:04-0500 SaO2% (BldA) [Mass fraction] 94 % Dr. Jean Yan MD Work Phone: 4(000)632-641789 [place] [place] [address] 07-07-2024 22:04-0500 Systolic blood pressure 119 mm[Hg] Dr. Jean Yan MD Work Phone: 6(360)407-528289 [place] [address] 07-07-2024 17:35-0500 Body mass index (BMI) [Ratio] 33.7 kg/m2 Dr. Jean Yan MD Work Phone: 8(452)005-487689 [place] [address] 07-07-2024 17:35-0500 Body weight 97.[address] Jean Yan MD Work Phone: 4(525)308-941789 [place] [address] 07-03-2024 17:24-0500 Body temperature 97.8 [degF] Dr. Jean Yan MD Work Phone: 8(566)802-472489 [place] [address] 07-03-2024 17:24-0500 Diastolic blood pressure 43 mm[Hg] Dr. Jean Yan MD Work Phone: 4(131)527-132489 [place] [address] 07-03-2024 17:24-0500 Heart rate 59 /min Dr. Jean Yan MD Work Phone: 6(629)771-400989 [place] [address] 07-03-2024 17:24-0500 Respiratory rate 16 /min Dr. Jean Yan MD Work Phone: 4(192)817-028089 [place] [address] 07-03-2024 17:24-0500 SaO2% (BldA) [Mass fraction] 98 % Dr. Jean Yan MD Work Phone: 9(644)963-480589 [place] [address] 07-03-2024 17:24-0500 Systolic blood pressure 109 mm[Hg] Dr. Jean Yan MD Work Phone: 0(617)327-964289 [place] [address] 07-03-2024 12:45-0500 Body mass index (BMI) [Ratio] 37.7 kg/m2 Dr. Jean Yan MD Work Phone: 7(146)871-542789 [place] [address] 07-03-2024 12:45-0500 Body weight 109.[address] Jean Yan MD Work Phone: 0(645)802-152489 [place] [address] 07-02-2024 20:15-0500 Body temperature 98 [degF] Dr. Jean Yan MD Work Phone: 6(937)014-654489 [place] [address] 07-02-2024 20:15-0500 Diastolic blood pressure 47 mm[Hg] Dr. Jean Yan MD Work Phone: 6(341)994-859589 [place] [address] 07-02-2024 20:15-0500 Heart rate 56 /min Dr. Jean Yan MD Work Phone: 4(008)231-936289 [place] [address] 07-02-2024 20:15-0500 Respiratory rate 18 /min Dr. Jean Yan MD Work Phone: 9(129)234-556289 [place] [address] 07-02-2024 20:15-0500 SaO2% (BldA) [Mass fraction] 97 % Dr. Jean Yan MD Work Phone: 7(239)179-368689 [place] [address] 07-02-2024 20:15-0500 Systolic blood pressure 115 mm[Hg] Dr. Jean Yan MD Work Phone: 3(693)987-130189 [place] [address] 07-02-2024 16:22-0500 Body mass index (BMI) [Ratio] 32.5 kg/m2 Dr. Jean Yan MD Work Phone: 2(699)039-306289 [place] [address] 07-02-2024 16:22-0500 Body weight 94.[address] Jean Yan MD Work Phone: 4(658)185-077489 [place] [address] 06-23-2024 02:27-0500 Body weight 92.[address] Jean Yan MD Work Phone: 5(052)564-007289 [place] [address] 06-20-2024 08:47-0500 Body temperature 97.5 [degF] Dr. Jean Yan MD Work Phone: 8(690)207-222289 [place] [address] 06-20-2024 08:47-0500 Body weight 96.[address] Jean Yan MD Work Phone: 4(732)717-459089 [place] [address] 06-20-2024 08:47-0500 Diastolic blood pressure 55 mm[Hg] Dr. Jean Yan MD Work Phone: 9(489)755-383589 [place] [address] 06-20-2024 08:47-0500 Heart rate 57 /min Dr. Jean Yan MD Work Phone: 0(272)013-653589 [place] [address] 06-20-2024 08:47-0500 Respiratory rate 14 /min Dr. Jean Yan MD Work Phone: 3(418)096-022189 [place] [address] 06-20-2024 08:47-0500 Systolic blood pressure 135 mm[Hg] Dr. Jean Yan MD Work Phone: 6(047)026-859889 [place] [address] 06-19-2024 11:43-0500 Body mass index (BMI) [Ratio] 31.9 kg/m2 Dr. Jean Yan MD Work Phone: 3(517)191-718089 [place] [address] 06-19-2024 11:43-0500 Respiratory rate 18 /min Dr. Jean Yan MD Work Phone: 4(425)445-329989 [place] [address] 06-12-2024 11:21-0500 Body temperature 96.7 [degF] Dr. Jean Yan MD Work Phone: 1(535)834-012589 [place] [address] 06-06-2024 10:00-0500 Body temperature 97 [degF] Dr. Jean Yan MD Work Phone: 2(706)364-116689 [place] [address] 06-06-2024 10:00-0500 Diastolic blood pressure 67 mm[Hg] Dr. Jean Yan MD Work Phone: 8(486)553-988189 [place] [address] 06-06-2024 10:00-0500 Heart rate 84 /min Dr. Jean Yan MD Work Phone: 3(133)427-616389 [place] [address] 06-06-2024 10:00-0500 Respiratory rate 16 /min Dr. Jean Yan MD Work Phone: 8(420)256-026789 [place] [address] 06-06-2024 10:00-0500 SaO2% (BldA) [Mass fraction] 95 % Dr. Jean Yan MD Work Phone: [facility] 06-06-2024 10:00-0500 Systolic blood pressure 101 mm[Hg] Dr. Jean Yan MD Work Phone: 7(365)673-114141 [place] [address] 06-06-2024 06:39-0500 Body mass index (BMI) [Ratio] 33.6 kg/m2 Dr. Jean Yan MD Work Phone: 5(117)189-506189 [place] [address] 06-06-2024 06:39-0500 Body weight 97.[address] Jean Yan MD Work Phone: 0(697)245-167689 [place] [address] 05-29-2024 10:49-0500 Diastolic blood pressure 31 mm[Hg] Dr. Jean Yan MD Work Phone: 2(102)832-806189 [place] [address] 05-29-2024 10:49-0500 Heart rate 58 /min Dr. Jean Yan MD Work Phone: 6(696)127-656689 [place] [address] 05-29-2024 10:49-0500 Systolic blood pressure 111 mm[Hg] Dr. Jean Yan MD Work Phone: 4(432)976-723641 [place] [address] 05-23-2024 00:51-0500 Body weight 92.[address] Jean Yan MD Work Phone: [facility] 04-14-2024 10:11-0500 Body temperature 99.1 [degF] Usman Moomaw JUDICIAL ASSISTANT.RADIOLOGIC TECHNOLOGY PROGRAM DIRECTOR Work Phone: [facility] 04-14-2024 10:11-0500 Diastolic blood pressure 60 mm[Hg] Usman Moomaw JUDICIAL ASSISTANT.RADIOLOGIC TECHNOLOGY PROGRAM DIRECTOR Work Phone: [facility] 04-14-2024 10:11-0500 Heart rate 76 /min Usman Moomaw JUDICIAL ASSISTANT.RADIOLOGIC TECHNOLOGY PROGRAM DIRECTOR Work Phone: [facility] 04-14-2024 10:11-0500 Respiratory rate 16 /min Usman Moomaw JUDICIAL ASSISTANT.RADIOLOGIC TECHNOLOGY PROGRAM DIRECTOR Work Phone: [facility] 04-14-2024 10:11-0500 SaO2% (BldA) [Mass fraction] 94 % Usman Moomaw JUDICIAL ASSISTANT.RADIOLOGIC TECHNOLOGY PROGRAM DIRECTOR Work Phone: [facility] 04-14-2024 10:11-0500 Systolic blood pressure 124 mm[Hg] Usman Moomaw JUDICIAL ASSISTANT.RADIOLOGIC TECHNOLOGY PROGRAM DIRECTOR Work Phone: [facility] 03-28-2024 12:54-0500 Body mass index (BMI) [Ratio] 34.25 kg/m2 Lauren Podlogar JUDICIAL ASSISTANT.RADIOLOGIC TECHNOLOGY PROGRAM DIRECTOR Work Phone: [facility] 03-28-2024 12:54-0500 Body weight 99.2 kg Lauren Podlogar JUDICIAL ASSISTANT.RADIOLOGIC TECHNOLOGY PROGRAM DIRECTOR Work Phone: [facility] 03-28-2024 12:54-0500 Diastolic blood pressure 48 mm[Hg] Lauren Podlogar JUDICIAL ASSISTANT.RADIOLOGIC TECHNOLOGY PROGRAM DIRECTOR Work Phone: [facility] 03-28-2024 12:54-0500 Heart rate 47 /min Lauren Podlogar JUDICIAL ASSISTANT.RADIOLOGIC TECHNOLOGY PROGRAM DIRECTOR Work Phone: [facility] 03-28-2024 12:54-0500 Respiratory rate 18 /min Lauren Podlogar JUDICIAL ASSISTANT.RADIOLOGIC TECHNOLOGY PROGRAM DIRECTOR Work Phone: [facility] 03-28-2024 12:54-0500 SaO2% (BldA) [Mass fraction] 98 % Lauren Podlogar JUDICIAL ASSISTANT.RADIOLOGIC TECHNOLOGY PROGRAM DIRECTOR Work Phone: [facility] 03-28-2024 12:54-0500 Systolic blood pressure 118 mm[Hg] Lauren Podlogar JUDICIAL ASSISTANT.RADIOLOGIC TECHNOLOGY PROGRAM DIRECTOR Work Phone: [facility] 01-06-2024 09:36-0400 Body mass index (BMI) [Ratio] 33.01 kg/m2 Lauren Podlogar JUDICIAL ASSISTANT.RADIOLOGIC TECHNOLOGY PROGRAM DIRECTOR Work Phone: [facility] 01-06-2024 09:36-0400 Body weight 95.6 kg Lauren Podlogar JUDICIAL ASSISTANT.RADIOLOGIC TECHNOLOGY PROGRAM DIRECTOR Work Phone: [facility] 01-06-2024 09:36-0400 Diastolic blood pressure 58 mm[Hg] Lauren Podlogar JUDICIAL ASSISTANT.RADIOLOGIC TECHNOLOGY PROGRAM DIRECTOR Work Phone: [facility] 01-06-2024 09:36-0400 Heart rate 58 /min Lauren Podlogar JUDICIAL ASSISTANT.RADIOLOGIC TECHNOLOGY PROGRAM DIRECTOR Work Phone: [facility] 01-06-2024 09:36-0400 Respiratory rate 16 /min Lauren Podlogar JUDICIAL ASSISTANT.RADIOLOGIC TECHNOLOGY PROGRAM DIRECTOR Work Phone: [facility] 01-06-2024 09:36-0400 SaO2% (BldA) [Mass fraction] 97 % Lauren Podlogar JUDICIAL ASSISTANT.RADIOLOGIC TECHNOLOGY PROGRAM DIRECTOR Work Phone: [facility] 01-06-2024 09:36-0400 Systolic blood pressure 128 mm[Hg] Lauren Podlogar JUDICIAL ASSISTANT.RADIOLOGIC TECHNOLOGY PROGRAM DIRECTOR Work Phone: [facility] 09-08-2023 14:30-0400 Body temperature 96.62 [degF] JEAN PIERRE ARREAGA MD [address] [place] [address] 09-08-2023 14:30-0400 Diastolic Blood Pressure Non-Invasive 50 mm[Hg] JEAN PIERRE ARREAGA MD [address] [place] [address] 09-08-2023 14:30-0400 Heart rate 53 /min JEAN PIERRE ARREAGA MD [address] [place] [address] 09-08-2023 14:30-0400 Respiratory rate 16 /min JEAN PIERRE ARREAGA MD [address] [place] [address] 09-08-2023 14:30-0400 Systolic Blood Pressure Non-Invasive 140 mm[Hg] JEAN PIERRE ARREAGA MD [address] [place] [address] 09-08-2023 14:13-0400 Body temperature 96.98 [degF] JEAN PIERRE ARREAGA MD [address] [place] [address] 09-08-2023 14:13-0400 Diastolic Blood Pressure Non-Invasive 49 mm[Hg] JEAN PIERRE ARREAGA MD [address] [place] [address] 09-08-2023 14:13-0400 Heart rate 51 /min JEAN PIERRE ARREAGA MD [facility] 09-08-2023 14:13-0400 Mean blood pressure 74 mm[Hg] JEAN PIERRE ARREAGA MD [facility] 09-08-2023 14:13-0400 Respiratory rate 16 /min JEAN PIERRE ARREAGA MD [address] [place] [address] 09-08-2023 14:13-0400 Systolic Blood Pressure Non-Invasive 134 mm[Hg] JEAN PIERRE ARREAGA MD [address] [place] [address] 09-08-2023 13:58-0400 Diastolic Blood Pressure Non-Invasive 49 mm[Hg] JEAN PIERRE ARREAGA MD [address] [place] [address] 09-08-2023 13:58-0400 Heart rate 45 /min JEAN PIERRE ARREAGA MD [address] [place] [address] 09-08-2023 13:58-0400 Mean blood pressure 74 mm[Hg] JEAN PIERRE ARREAGA MD [address] [place] [address] 09-08-2023 13:58-0400 Respiratory rate 16 /min JEAN PIERRE ARREAGA MD [address] [place] [address] 09-08-2023 13:58-0400 Systolic Blood Pressure Non-Invasive 130 mm[Hg] JEAN PIERRE ARREAGA MD [facility] 09-08-2023 13:43-0400 Body temperature 96.98 [degF] JEAN PIERRE ARREAGA MD [address] [place] [address] 09-08-2023 13:43-0400 Heart rate 44 /min JEAN PIERRE ARREAGA MD [address] [place] [address] 09-08-2023 13:43-0400 Mean blood pressure 73 mm[Hg] JEAN PIERRE ARREAGA MD [facility] 09-08-2023 13:35-0400 Body temperature 95.05 [degF] JEAN PIERRE ARREAGA MD [facility] 09-08-2023 13:35-0400 Respiratory Rate - Anes 23 br/min JEAN PIERRE ARREAGA MD [facility] 09-08-2023 13:30-0400 Body temperature 94.95 [degF] JEAN PIERRE ARREAGA MD [facility] 09-08-2023 13:30-0400 Respiratory Rate - Anes 21 br/min JEAN PIERRE ARREAGA MD [facility] 09-08-2023 13:25-0400 Body temperature 94.75 [degF] JEAN PIERRE ARREAGA MD [facility] 09-08-2023 13:25-0400 Respiratory Rate - Anes 11 br/min JEAN PIERRE ARREAGA MD [facility] 09-08-2023 11:18-0400 Body height 170.2 cm JEAN PIERRE ARREAGA MD [facility] 09-08-2023 11:18-0400 Body weight 98.7 kg JEAN PIERRE ARREAGA MD [facility] 09-08-2023 10:55-0400 Heart rate 56 /min JEAN PIERRE ARREAGA MD [facility] 12-06-2022 09:18-0400 Body weight 97.98 kg Lauren Podlogar JUDICIAL ASSISTANT.RADIOLOGIC TECHNOLOGY PROGRAM DIRECTOR Work Phone: [facility] 12-06-2022 09:18-0400 Diastolic blood pressure 60 mm[Hg] Lauren Podlogar JUDICIAL ASSISTANT.RADIOLOGIC TECHNOLOGY PROGRAM DIRECTOR Work Phone: [facility] 12-06-2022 09:18-0400 Heart rate 50 /min Lauren Podlogar JUDICIAL ASSISTANT.RADIOLOGIC TECHNOLOGY PROGRAM DIRECTOR Work Phone: [facility] 12-06-2022 09:18-0400 Respiratory rate 16 /min Lauren Podlogar JUDICIAL ASSISTANT.RADIOLOGIC TECHNOLOGY PROGRAM DIRECTOR Work Phone: [facility] 12-06-2022 09:18-0400 SaO2% (BldA) [Mass fraction] 96 % Lauren Podlogar JUDICIAL ASSISTANT.RADIOLOGIC TECHNOLOGY PROGRAM DIRECTOR Work Phone: [facility] 12-06-2022 09:18-0400 Systolic blood pressure 128 mm[Hg] Lauren Podlogar JUDICIAL ASSISTANT.RADIOLOGIC TECHNOLOGY PROGRAM DIRECTOR Work Phone: [facility] 09-06-2022 09:54-0400 Body weight 99.52 kg Lauren Podlogar JUDICIAL ASSISTANT.RADIOLOGIC TECHNOLOGY PROGRAM DIRECTOR Work Phone: [facility] 09-06-2022 09:54-0400 Diastolic blood pressure 62 mm[Hg] Lauren Podlogar JUDICIAL ASSISTANT.RADIOLOGIC TECHNOLOGY PROGRAM DIRECTOR Work Phone: [facility] 09-06-2022 09:54-0400 Heart rate 58 /min Lauren Podlogar JUDICIAL ASSISTANT.RADIOLOGIC TECHNOLOGY PROGRAM DIRECTOR Work Phone: [facility] 09-06-2022 09:54-0400 Respiratory rate 18 /min Lauren Podlogar JUDICIAL ASSISTANT.RADIOLOGIC TECHNOLOGY PROGRAM DIRECTOR Work Phone: [facility] 09-06-2022 09:54-0400 SaO2% (BldA) [Mass fraction] 93 % Lauren Podlogar JUDICIAL ASSISTANT.RADIOLOGIC TECHNOLOGY PROGRAM DIRECTOR Work Phone: [facility] 09-06-2022 09:54-0400 Systolic blood pressure 138 mm[Hg] Lauren Podlogar JUDICIAL ASSISTANT.RADIOLOGIC TECHNOLOGY PROGRAM DIRECTOR Work Phone: [facility] 06-07-2022 11:12-0500 Diastolic blood pressure 62 mm[Hg] Husam Yan MD Work Phone: [facility] 06-07-2022 11:12-0500 Systolic blood pressure 144 mm[Hg] Husam Yan MD Work Phone: [facility] 06-07-2022 10:29-0500 Body weight 98.7 kg Husam Yan MD Work Phone: [facility] 06-07-2022 10:29-0500 Heart rate 58 /min Husam Yan MD Work Phone: [facility] 06-07-2022 10:29-0500 Respiratory rate 16 /min Husam Yan MD Work Phone: [facility] 06-07-2022 10:29-0500 SaO2% (BldA) [Mass fraction] 96 % Husam Yan MD Work Phone: [facility] 03-05-2022 09:46-0400 Body weight 98.16 kg Husam Yan MD Work Phone: [facility] 03-05-2022 09:46-0400 Diastolic blood pressure 60 mm[Hg] Husam Yan MD Work Phone: [facility] 03-05-2022 09:46-0400 Heart rate 58 /min Husam Yan MD Work Phone: [facility] 03-05-2022 09:46-0400 Respiratory rate 16 /min Husam Yan MD Work Phone: [facility] 03-05-2022 09:46-0400 Systolic blood pressure 136 mm[Hg] Husam Yan MD Work Phone: [facility] 11-06-2021 09:22-0400 Body height 172.[address] Jean Yan Work Phone: [facility] Work Phone: 11-06-2021 09:22-0400 Body weight 97.[address] Jean Yan Work Phone: [facility] Work Phone: 11-05-2021 09:04-0400 Body mass index (BMI) [Ratio] 32.5 kg/m2 Dr. Jean Yan Work Phone: [facility] Work Phone: 10-21-2021 14:22-0400 Body mass index (BMI) [Ratio] 32.5 kg/m2 Dr. Jean Yan Work Phone: [facility] Work Phone: 10-21-2021 14:22-0400 Body temperature 98 [degF] Dr. Jean Yan Work Phone: [facility] Work Phone: 10-21-2021 14:22-0400 Body weight 97.[address] Jean Yan Work Phone: [facility] Work Phone: 10-21-2021 14:22-0400 Diastolic blood pressure 75 mm[Hg] Dr. eJan Yan Work Phone: [facility] Work Phone: 10-21-2021 14:22-0400 Heart rate 43 /min Dr. Jean Yan Work Phone: [facility] Work Phone: 10-21-2021 14:22-0400 Respiratory rate 16 /min Dr. Jean Yan Work Phone: [facility] Work Phone: 10-21-2021 14:22-0400 SaO2% (BldA) [Mass fraction] 93 % Dr. Jean Yan Work Phone: [facility] Work Phone: 10-21-2021 14:22-0400 Systolic blood pressure 166 mm[Hg] Dr. Jean Yan Work Phone: [facility] Work Phone: 10-27-2016 15:34-0400 Heart rate 69 /min [facility] Work Phone: 10-27-2016 15:09-0400 BMI (Body Mass Index) 33.15 kg/m2 [facility] Work Phone: 10-27-2016 15:09-0400 Body weight 101.83 kg Carmen Blu [facility] Work Phone: 10-27-2016 15:09-0400 BP Diastolic 70 mm[Hg] [facility] Work Phone: 10-27-2016 15:09-0400 BP Systolic 152 mm[Hg] [facility] Work Phone: 10-27-2016 15:040 Height 175.26 cm Carmen [facility] Work Phone: 10-27-2016 15:040 Pulse (Heart Rate) 64 /min Carmen Blu [facility] Work Phone: 10-27-2016 15:040 Respiratory Rate 20 /min [facility] Work Phone: 10-27-2016 15:040 Weight 101.83 kg Carmen [facility] Work Phone: Encounters Encounter Date Encounter Type Care Provider Facility Start: 03-29-2025 End: 03-29-2025 ambulatory Efewongbe Oleghe Facility:[facility] Start: 03-12-2025 ambulatory Efewongbe Oleghe Facili ty:[facility] Start: 03-07-2025 ambulatory Efewongbe Oleghe Facili ty:[facility] Start: 03-07-2025 Nando Wiggins MD [facility] Start: 02-28-2025 ambulatory Efewongbe Oleghe Facili ty:[facility] Start: 02-28-2025 Nando Wiggins MD [facility] Start: 02-25-2025 End: 02-25-[address] Nando Wiggins MD Work Phone: -[facility] [employer] [facility] Start: 02-25-2025 End: 02-25-2025 Dr. Laron Bacon MD -[facility] Work Phone: Start: 02-15-2025 End: 02-15-2025 Dr. Hakan Gunter MD -[facility] Work Phone: Start: 02-15-2025 End: 02-15-[address] Nando Wiggins MD Work Phone: -[facility] Start: 02-14-2025 ambulatory Efewongbe Oleghe Facili ty:[facility] Start: 02-14-2025 [facility] Start: 02-12-2025 ambulatory Efewongbe Oleghe Facili ty:[facility] Start: 02-12-2025 [facility] Start: 02-07-2025 ambulatory Efewongbe Oleghe Facili ty:[facility] Start: 02-07-2025 [facility] Start: 02-01-2025 ambulatory Efewongbe Oleghe OLS Fa cility:[facility] Start: 02-01-2025 [facility] Start: 01-30-2025 End: 01-30-2025 ambulatory Efewongbe Oleghe Facility:[facility] Start: 01-30-2025 End: 01-30-[address] [facility] Work Phone: Start: 01-29-2025 Dr. Jaswant Montgomery MD -[facility] Work Phone: Start: 01-28-2025 Dr. Jaswant Montgomery MD -[facility] Work Phone: Start: 01-27-2025 Dr. Hakan padron MD -[facility] Start: 01-27-2025 Dr. Nazanin rivera MD -[facility] Work Phone: Start: [facility] Start: 01-26-2025 Dr. Kimberly connor MD -[facility] Work Phone: Start: 01-25-2025 ambulatory Efewongbe Oleghe Facili ty:[facility] Start: 01-25-2025 End: 01-29-2025 Evaluation and management of inpatient Dr. Nando Wiggins MD Work Phone: -[facility] Start: 01-25-2025 End: 01-29-2025 Dr. Jayla Osuna MD -[facility] Work Phone: Start: 01-25-2025 ambulatory Efewongbe Oleghe Facili ty:[facility] Start: 01-25-2025 Dr. Hakan padron MD -[facility] Start: 01-23-2025 ambulatory Efewongbe Oleghe Facili ty:[facility] Start: 01-23-2025 Nando Wiggins MD [facility] Start: 12-26-2024 End: 12-26-[address] Nando Wiggins MD Work Phone: [facility] Start: 12-26-2024 End: 12-26-2024 Grecia Duran [facility] Work Phone: Start: 12-24-2024 Nando Wiggins MD [facility] Start: 12-24-2024 End: 12-24-2024 ambulatory Efewongbe Oleghe Facility:[facility] Start: 12-21-2024 End: 12-21-[address] Nando Wiggins MD Work Phone: [facility] Start: 12-21-2024 End: 12-21-2024 [facility] Start: 12-20-2024 End: 12-20-[address] Nando Wiggins MD Work Phone: [facility] Start: 12-20-2024 End: 12-20-2024 Meredith STEWART [facility] Work Phone: Start: 12-19-2024 ambulatory Efewongbe Oleghe Facili ty:[facility] Start: 12-19-2024 Nando Wiggins MD [facility] Start: 12-12-2024 ambulatory Efewongbe Oleghe Facili ty:[facility] Start: 12-12-2024 Nando Wiggins MD -[facility] Start: 12-11-2024 End: 12-11-2024 Telephone encounter William Chilel MD Work Phone: Cardiology Comment on above: Courtesy call (Devi e survey) Start: 11-30-2024 End: 11-30-[address] Nando Wiggins MD Work Phone: -[facility] Start: 11-30-2024 End: 11-30-2024 Meredith Guevara NP-C -[facility] Work Phone: Start: 11-23-2024 End: 11-28-2024 Evaluation and management of inpatient HUSAM YAN Facility:[facility] Start: 11-22-2024 End: 11-23-2024 Dr. Nando Wiggins MD Work Phone: -Emergency Department Work Phone: Start: 11-22-2024 End: 11-23-2024 Emergency department patient visit Dr. Nando Wiggins MD Work Phone: -Emergency Department Start: 11-12-2024 ambulatory Nando Raini ty:[facility] Start: 11-12-2024 Nando Wiggins MD -[facility] Start: 11-08-2024 End: 11-09-2024 Dr. Nando Wiggins MD Work Phone: -Emergency Department Work Phone: Start: 11-08-2024 End: 11-09-2024 Emergency department patient visit Dr. Nando Wiggins MD Work Phone: [facility] Work Phone: Start: 11-05-2024 End: 11-05-[address] Nando Wiggins MD Work Phone: -[facility] Start: 11-05-2024 End: 11-05-2024 Nando Wiggins MD [facility] Start: 11-05-2024 End: 11-05-2024 ambulatory Nando Wiggins Facility:[facility] Start: 11-02-2024 End: 11-02-[address] Nando Wiggins MD Work Phone: [facility] Start: 11-02-2024 End: 11-02-2024 Meredith Guevara BUS ATTENDANT-C -[facility] Work Phone: Start: 10-29-2024 End: 10-29-2024 ambulatory Nando Wiggins Facility:[facility] Start: 10-29-2024 End: 10-29-2024 Pooja Ruano BUS ATTENDANT-C -[facility] Work Phone: Start: 10-22-2024 ambulatory Nando SHERWOOD Fa cility:[facility] Start: 10-22-2024 Nando Wiggins MD [facility] Start: 10-17-2024 End: 10-17-2024 Salma MINER -[facility] Work Phone: Start: 10-17-2024 End: 10-17-2024 ambulatory Salma Cervantes Facility:[facility] Start: 10-16-2024 End: 10-16-[address] Nando Wiggins MD Work Phone: [facility] Start: 10-16-2024 End: 10-16-2024 Nando Wiggins MD [facility] Start: 10-08-2024 ambulatory Nando Wiggins OLS Fa cility:[facility] Start: 10-08-2024 Nando Wiggins MD [facility] Start: 10-03-2024 End: 10-03-2024 [facility] Work Phone: Start: 10-03-2024 End: 10-03-[address] Jean Yan MD Work Phone: [facility] Work Phone: Start: 10-02-2024 End: 10-02-[address] Nando Wiggins MD Work Phone: [facility] Work Phone: Start: 10-02-2024 End: 10-02-2024 [facility] Start: 10-02-2024 End: 10-02-2024 ambulatory Effili Wiggins OLS Facility:[facility] Start: 09-24-2024 ambulatory Warren Whitaker ty:[facility] Start: 09-24-2024 Dr. Randal Damico MD - [facility] Start: 09-24-2024 End: 10-18-[address] Jean Yan MD Work Phone: [facility] Work Phone: Start: 09-24-2024 End: 10-18-2024 Dr. Randal Damico [facility] Work Phone: Start: 09-24-2024 End: 09-24-2024 ambulatory Nando SHERWOOD Facility:[facility] Start: 09-21-2024 ambulatory Salma Cervantes Facility:[facility] Start: 09-17-2024 End: 09-17-2024 [facility] Start: 09-17-2024 End: 09-17-2024 ambulatory Effili SHERWOOD Facility:[facility] Start: 09-12-2024 End: 09-12-[address] Jean Yan MD Work Phone: [facility] Work Phone: Start: 09-12-2024 End: 09-12-2024 [facility] Start: 09-12-2024 End: 09-12-2024 ambulatory Effili SHERWOOD Facility:[facility] Start: 09-10-2024 ambulatory Nando SHERWOOD Fa cility:[facility] Start: 09-10-2024 Nando Wiggins MD [facility] Start: 09-05-2024 End: 09-05-2024 ambulatory Efbiancaongwolf [place] Facility:[facility] Start: 09-05-2024 End: 09-05-2024 Meredith Guevara [facility] Work Phone: Start: 09-04-2024 Salma MINER [facility] Start: 09-03-2024 Dr. Earl White MD -[facility] Start: 09-03-2024 Dr. Randal Damico MD -[facility] Start: 09-02-2024 Salma Cervantes PA [facility] Start: 09-01-2024 Salma Cervantes PA [facility] Start: 08-31-2024 ambulatory Salma Cervantes Facility:[facility] Start: 08-31-2024 Dr. Randal Damico MD -[facility] Start: 08-31-2024 Salma Cervantes PA [facility] Start: 08-30-2024 Salma Cervantes PA [facility] Start: 08-30-2024 Dr. Randal Damico MD [facility] Start: 08-29-2024 ambulatory Salma Cervanets Facility:[facility] Start: 08-29-2024 End: 09-04-2024 Evaluation and management of inpatient Nando [place] Facility:[facility] Start: 08-29-2024 End: 09-04-2024 Dr. Earl White MD -Medical Surgical 3 Work Phone: Start: 08-29-2024 Dr. Earl White MD -[facility] Start: 08-29-2024 ambulatory Efrehanbe Holliee Facili ty:[facility] Start: 08-28-2024 ambulatory Efewongbe Oleghe Facili ty:[facility] Start: 08-28-2024 [facility] Start: 08-27-2024 ambulatory Efewongbe Meekghe Facili ty:[facility] Start: 08-27-2024 Dr. Randal Damico MD -[facility] Start: 08-27-2024 End: 09-19-2024 [facility] Start: 08-27-2024 End: 09-19-2024 Dr. Randal Damico [facility] Work Phone: Start: 08-27-2024 End: 08-27-2024 ambulatory [facility] Facility:[facility] Start: 08-20-2024 ambulatory Efewongbe Oleghe Facili ty:[facility] Start: 08-20-2024 Dr. Randal Damico MD -[facility] Start: 08-20-2024 End: 08-20-2024 ambulatory [facility] Facility:[facility] Start: 08-20-2024 End: 08-20-2024 Dr. Randal Damico MD [facility] Work Phone: Start: 08-17-2024 ambulatory Efewongbe Oleghe Facili ty:[facility] Start: 08-14-2024 End: 08-14-2024 ambulatory [facility] Facility:[facility] Start: 08-14-2024 End: 08-14-2024 Dr. Nando Wiggins MD -[facility] Work Phone: Start: 08-13-2024 ambulatory Efewongbe Oleghe Facili ty:[facility] Start: 08-13-2024 End: 08-13-2024 Dr. Randal Damico MD -[facility] Start: 08-13-2024 End: 08-13-2024 [facility] Start: 08-06-2024 ambulatory Efewongbe Oleghe Facili ty:[facility] Start: 08-06-2024 Dr. Randal Damico MD -[facility] Start: 08-01-2024 End: 08-01-2024 [facility] Start: 08-01-2024 End: 08-01-2024 ambulatory [facility] Facility:[facility] Start: 08-01-2024 End: 08-01-2024 Dr. Des Garcia DO -[facility] Departny nt Work Phone: Start: 07-31-2024 End: 07-31-2024 ambulatory Efewongbe Oleghe Facility:[facility] Start: 07-31-2024 End: 07-31-2024 Meredith Geuvara - -[facility] Work Phone: Start: 07-30-2024 ambulatory Efewongbe Oleghe Facili ty:[facility] Start: 07-30-2024 Dr. Randal Damico MD [facility] Start: 07-23-2024 ambulatory Efewongbe Oleghe Facili ty:[facility] Start: 07-23-2024 Dr. R[facility] Start: 07-20-2024 Dr. Margarette Godinez DO -[facility] Work Phone: Start: 07-20-2024 ambulatory Efewongbe Oleghe Facili ty:[facility] Start: 07-20-2024 Dr. Earl White MD [facility] Start: 07-19-2024 Dr. Margarette Godinez DO [facility] Work Phone: Start: 07-18-2024 ambulatory Efewongbe Oleghe Facili ty:[facility] Start: 07-18-2024 Dr. Earl White MD [facility] Start: 07-18-2024 Dr. Margarette Godinez DO -[facility] Work Phone: Start: 07-17-2024 Dr. Jayla Osuna MD [facility] Work Phone: Start: 07-16-2024 ambulatory Efewongbe Oleghe Facili ty:[facility] Start: 07-16-2024 Dr. Zenaida Cooper MD -[facility] Start: 07-15-2024 Dr. Juan Antonio Holden MD [facility] Work Phone: Start: 07-14-2024 Dr. Juan Antonio Holden MD [facility] Work Phone: Start: 07-13-2024 End: 07-20-2024 Evaluation and management of inpatient [facility] Facility:[facility] Start: 07-13-2024 End: 07-20-2024 Dr. Margarette Godinez DO -Medical Surgical 3 Work Phone: Start: 07-13-2024 ambulatory [facility] Fac[facility] ty:[facility] Start: 07-13-2024 End: 07-13-2024 ambulatory [facility] Facility:[facility] Start: 07-13-2024 End: 07-13-2024 Meredith Guevara BUS ATTENDANT-C -[facility] Work Phone: Start: 07-11-2024 End: 07-12-2024 Patient encounter procedure Pham Walker MA [facility] Comment on above: Population Health Na vigation Outreach ([facility]) Start: 07-11-2024 End: 07-20-2024 [facility] Start: 07-11-2024 End: 07-20-2024 Dr. Randal Damico MD [facility] Work Phone: Start: 07-10-2024 End: 07-10-2024 ambulatory [facility] Facility:[facility] Start: 07-10-2024 End: 07-10-2024 Meredith Guevara NP-C -[facility] Work Phone: Start: 07-09-2024 End: 07-10-[address] [facility] Comment on above: Refill Request Start: 07-09-2024 Nando Wiggins MD - [facility] [place] Start: 07-07-2024 End: 07-07-2024 Dr. Alicia Loo DO -Emergency Departmen t Work Phone: Start: 07-07-2024 End: 07-07-2024 Emergency department patient visit [facility] Facility:[facility] Start: 07-03-2024 End: 07-03-2024 Dr. Eric Franklin MD -Emergency Departmen t Work Phone: Start: 07-03-2024 End: 07-03-2024 Emergency department patient visit Eric Franklin Facility:[facility] Start: 07-02-2024 Dr. Fernando stein DO -[facility] Work Phone: Start: 07-02-2024 End: 07-02-2024 ambulatory Nando Wiggins Facility:[facility] Start: 07-02-2024 End: 07-02-2024 Dr. Fernando Oliveros DO -Progressive Care Unit Work Phone: Start: 06-25-2024 ambulatory Nando Wiggins OLS Fa cility:[facility] Start: 06-25-2024 Nando Bravo Start: 06-20-2024 End: 06-20-2024 Salma MINER -[facility] Surgery Work Phone: Start: 06-20-2024 End: 06-20-2024 ambulatory Salma Cervantes Facility:[facility] Start: 06-19-2024 End: 06-22-2024 ambulatory Warren Reji Facility:[facility] Start: 06-19-2024 End: 06-22-2024 Dr. Des Ruelas [facility] Work Phone: Start: 06-18-2024 ambulatory Nando SHERWOOD Fa cility:[facility] Start: 06-18-2024 Nando Bravo Start: 06-11-2024 End: 06-11-2024 Patient encounter [facility] Comment on above: Population Health Na vigation Outreach ([facility]) Start: 06-11-2024 End: 06-11-2024 ambulatory [facility]ilo [facility] Start: 06-11-2024 Nando Bravo Start: 06-08-2024 ambulatory Nando SHERWOOD Fa cility:[facility] Start: 06-08-2024 Nando Wiggins MD -[facility] [place] Start: 06-06-2024 End: 06-06-2024 ambulatory Nando Wiggins Facility:[facility] Start: 06-06-2024 End: 06-06-2024 Meredith STEWART -[facility] Work Phone: Start: 06-06-2024 End: 06-06-2024 ambulatory Des Ruelas Facility:[facility] Start: 06-06-2024 End: 06-06-2024 Dr. Des Ruelas DPM -Surgical Day Care Start: 06-06-2024 End: 06-06-2024 ambulatory Nando Wiggins KAELA Facility:[facility] Start: 06-04-2024 End: 06-04-2024 ambulatory Nando Wiggins Facility:[facility] Start: 05-30-2024 End: 06-05-2024 Telephone encounter Husam Yan MD Work Phone: [facility] Comment on above: Patient Update; Fill out Surgical Release Forms Start: 05-28-2024 ambulatory Nando Wiggins OLS Fa cility:[facility] Start: 05-22-2024 ambulatory Earl White Facility:[facility] Start: 05-22-2024 End: 05-22-2024 ambulatory Earl Walpole Facility:[facility] Start: 05-21-2024 ambulatory Deblagunitaswolf Wiggins OLS Fa cility:[facility] Start: 05-17-2024 ambulatory Warren Mendoza Facili ty:[facility] Start: 05-17-2024 End: 05-22-2024 ambulatory Warren Mnedoza Facility:[facility] Start: 05-15-2024 End: 05-15-2024 ambulatory Nando Wiggins Facility:[facility] Start: 05-11-2024 End: 05-11-2024 ambulatory Jean Yan Facility:[facility] Start: 05-04-2024 ambulatory Deni Robles ility:[facility] Start: 05-04-2024 End: 05-10-2024 ambulatory Salma Cervantes Facility:[facility] Start: 05-04-2024 End: 05-10-2024 Evaluation and management of inpatient Jaswant Montgomery Facility:[facility] Start: 05-02-2024 ambulatory Jean Yan Faci lity:[facility] Start: 04-23-2024 End: 04-23-2024 ambulatory Sridevi Miller MA [facility] Start: 04-23-2024 End: 04-23-2024 Patient encounter procedure Sridevi Miller MA [facility] Comment on above: Population Health Na vigation Outreach ([employer] ) Start: 04-16-2024 ambulatory Jayla Osuna [facility] Start: 04-16-2024 End: 04-16-2024 ambulatory Jean Yan Facility:[facility] Start: 04-14-2024 End: 04-24-2024 Evaluation and management of inpatient Jayla Osuna Facility:[facility] Start: 04-14-2024 ambulatory Jayla Osuna [facility] Start: 04-14-2024 End: 04-14-2024 ambulatory HUSAM YAN Facility:[facility] Start: 04-14-2024 End: 04-14-2024 Patient encounter procedure Usman Quesada APRN.CNP Work Phone: 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, without long-term current use of insulin (HCC) (Primary Dx); 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) Start: 03-28-2024 End: 03-28-2024 ambulatory LAUREN GAMEZLOGOLINDA Facility:[facility] Start: 01-06-2024 End: 01-06-2024 Patient encounter procedure Lauren Arzola APRN.CNP Work Phone: [facility] Comment on above: 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, with long-term current use of insulin (HCC) (Primary Dx); 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); Chronic diastolic heart failure (HCC); Mobitz (type) I (Wenckebach's) atrioventricular block; Lower extremity edema; Essential hypertension; Mixed hyperlipidemia Start: 01-06-2024 End: 01-06-2024 ambulatory LAUREN ARZOLA Facility:[facility] Start: 12-15-2023 End: 02-02-2024 Refill Husam Yan MD Work Phone: [facility] Comment on above: Refill Request (See Rx notes) Start: 09-08-2023 End: 09-08-2023 ambulatory JEAN PIERRE ARREAGA MD Facility:[facility] Start: 09-08-2023 End: 09-08-2023 SAME DAY STAY JEAN PIERRE ARREAGA MD [facility] Start: 09-06-2023 Telephone encounter Jean Yan MD Work Phone: [facility] Comment on above: Medication Request Start: 08-08-2023 Telephone encounter Jean Yan MD Work Phone: [facility] Comment on above: Medication Problem ( Freestyle toribio 14 day sensor kit - patient's sensor reader is a toribio 2 and the sensors ordered by our office are incompatible with his reader ) Start: 07-28-2023 Refill Husam Yan MD Work Phone: [facility] Comment on above: Refill Request Start: 07-12-2023 Refill Husam Yan MD Work Phone: [facility] Comment on above: Refill Request Start: 07-11-2023 Refill Husam Yan MD Work Phone: [facility] Comment on above: Refill Request Start: 06-27-2023 End: 06-27-2023 Patient encounter procedure Danilo Cadeeugene Work Phone: Podiatry Comment on above: 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, without long-term current use of insulin (HCC) (Primary Dx); Onychomycosis; Left foot pain; Right foot pain Start: 03-15-2023 Telephone encounter Jean Yan MD Work Phone: [facility] Comment on above: [facility] requesting records Start: 03-08-2023 Telephone encounter Jean Yan MD Work Phone: [facility] Comment on above: Medication Problem Start: 02-23-2023 Telephone encounter Jean Yan MD Work Phone: [facility] Comment on above: Insurance Authorizat ion Start: 01-04-2023 Refill Husam Yan MD Work Phone: [facility] Start: 12-06-2022 End: 12-06-2022 Patient encounter procedure Lauren Arzola APRN.CNP Work Phone: [facility] Comment on above: 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, without long-term current use of insulin (HCC) (Primary Dx); Lower extremity edema; ESRD (end stage renal disease) on dialysis ([facility]); Chronic diastolic heart failure (HCC); Essential hypertension; Mobitz (type) I (Wenckebach's) atrioventricular block; At high risk for falls Start: 11-15-2022 Refill Husam Yan MD Work Phone: [facility] Comment on above: Refill Request Start: 11-04-2022 Refill Husam Yan MD Work Phone: [facility] Comment on above: Refill Request Start: 10-27-2022 Refill Husam Yan MD Work Phone: [facility] Comment on above: Refill Request Start: 09-06-2022 End: 09-06-2022 Patient encounter procedure Lauren Dariusz STOKES Work Phone: [facility] Comment on above: 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, without long-term current use of insulin (HCC) (Primary Dx); ESRD (end stage renal disease) on dialysis ([facility]); Chronic diastolic heart failure (HCC) Start: 08-19-2022 Refill Husam Yan MD Work Phone: [facility] Comment on above: Refill Request Start: 06-08-2022 Telephone encounter Jean Yan MD Work Phone: [facility] Comment on above: Results Start: 06-07-2022 End: 06-07-2022 Patient encounter procedure Husam Yan MD Work Phone: [facility] Comment on above: 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, without long-term current use of insulin ([facility]) (Primary Dx); Essential hypertension; Mixed hyperlipidemia; ESRD (end stage renal disease) on dialysis ([facility]); Chronic diastolic heart failure ([facility]); Bradycardia; Lower extremity edema; Noncompliance [...] Telephone encounter Jean Yan MD Work Phone: [facility] Comment on above: Results Start: 03-05-2022 End: 03-05-2022 Patient encounter procedure Husam Yan MD Work Phone: [facility] Comment on above: 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, without long-term current use of insulin (HCC) (Primary Dx); Essential hypertension; Mixed hyperlipidemia; 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); Need for COVID-19 vaccine Start: 02-03-2022 Telephone encounter Jean Yan MD Work Phone: [facility] Comment on above: Insurance Authorizat ion (Information on Glargine) Start: 02-02-2022 Refill Husam Yan MD Work Phone: [facility] Comment on above: Refill Request Start: 01-26-2022 Refill Husam Yan MD Work Phone: [facility] Comment on above: Refill Request Start: 12-14-2021 Refill Husam Yan MD Work Phone: [facility] Comment on above: Refill Request Start: 11-06-2021 Non-patient / Non-visit Dr. Mike Yan Work Phone: [facility] Start: 11-06-2021 End: 11-06-2021 Admission to same day surgery center Dr. Jean Yan Work Phone: [facility]-Security Director/Special Procedures Start: 10-21-2021 End: 10-21-[address] Jean Yan Work Phone: [facility] Start: 09-16-2021 Telephone encounter Jean Yan MD Work Phone: [facility] Comment on above: Results Start: 03-04-2021 End: 03-04-2021 Subsequent hospital visit by physician Xr 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 Yasir Yan Work Phone: [facility] Procedures Date Procedure Procedure Detail Performing Clinician Start: 03-12-2025 Mean corpuscular hemoglobin concentration determination Dr. Nando Wiggins MD Work Phone: Start: 03-12-[address] Kathie Wiggins MD Work Phone: Start: 03-12-2025 Nucleated red blood cell count procedure Dr. Nando Wiggins MD Work Phone: Start: 03-12-2025 Platelet mean volume determination Dr. Nando Wiggins MD Work Phone: Start: 03-12-2025 Vitamin D, 25-hydrox y measurement Dr. Nando Wiggins MD Work Phone: Start: 03-07-2025 Mean corpuscular hemoglobin concentration determination Dr. Nando Wiggins MD Work Phone: Start: 03-07-[address] Kathie Wiggins MD Work Phone: Start: 03-07-2025 Nucleated red blood cell count procedure Dr. Nando Wiggins MD Work Phone: Start: 03-07-2025 Platelet mean volume determination Dr. Nando Wiggins MD Work Phone: Start: 02-28-2025 Mean corpuscular hemoglobin concentration determination Dr. Nando Wiggins MD Work Phone: Start: 02-28-[address] Kathie Wiggins MD Work Phone: Start: 02-28-2025 Nucleated red blood cell count procedure Dr. Nando Wiggins MD Work Phone: Start: 02-28-2025 Platelet mean volume determination Dr. Nando Wiggins MD Work Phone: Start: 02-15-2025 Plain X-ray of femur Dr Chucho Wiggins MD Work Phone: Start: 02-14-2025 Blood count smear mc rscp w/mnl difrntl wbc count Dr. Nando Wiggins MD Work Phone: Start: 02-14-2025 Mean corpuscular hemoglobin concentration determination Dr. Nando Wiggins MD Work Phone: Start: 02-14-[address] Kathie Wiggins MD Work Phone: Start: 02-14-2025 Nucleated red blood cell count procedure Dr. Nando Wiggins MD Work Phone: Start: 02-14-2025 Platelet mean volume determination Dr. Nando Wiggins MD Work Phone: Start: 02-12-2025 Blood count smear mc rscp w/mnl difrntl wbc count Dr. Nando Wiggins MD Work Phone: Start: 02-12-2025 Mean corpuscular hemoglobin concentration determination Dr. Nando Wiggins MD Work Phone: Start: 02-12-[address] Kathie Wiggins MD Work Phone: Start: 02-12-2025 Nucleated red blood cell count procedure Dr. Nando Wiggins MD Work Phone: Start: 02-12-2025 Platelet mean volume determination Dr. Nando Wiggins MD Work Phone: Start: 02-07-2025 Blood count smear mc rscp w/mnl difrntl wbc count Dr. Nando Wiggins MD Work Phone: Start: 02-07-2025 Mean corpuscular hemoglobin concentration determination Dr. Nando Wiggins MD Work Phone: Start: 02-07-[address] Kathie Wiggins MD Work Phone: Start: 02-07-2025 Nucleated red blood cell count procedure Dr. Nando Wiggins MD Work Phone: Start: 02-07-2025 Platelet mean volume determination Dr. Nando Wiggins MD Work Phone: Start: 02-01-2025 Blood count smear rscp w/mnl difrntl wbc count Dr. Nando Wiggins MD Work Phone: Start: 02-01-2025 Mean corpuscular hemoglobin concentration determination Dr. Nando Wiggins MD Work Phone: Start: 02-01-[address] Kathie Wiggins MD Work Phone: Start: 02-01-2025 Nucleated red blood cell count procedure Dr. Nando Wiggins MD Work Phone: Start: 02-01-2025 Platelet mean volume determination Dr. Nando Wiggins MD Work Phone: Start: 01-29-2025 Blood count smear mc rscp w/mnl difrntl wbc count Dr. Nando Wiggins MD Work Phone: Start: 01-29-[address] Nando Wiggins MD Work Phone: Start: 01-29-2025 Mean corpuscular hemoglobin concentration determination Dr. Nando Wiggins MD Work Phone: Start: 01-29-[address] Kathie Wiggins MD Work Phone: Start: 01-29-2025 Nucleated red blood cell count procedure Dr. Nando Wiggins MD Work Phone: Start: 01-29-2025 Platelet mean volume determination Dr. Nando Wiggins MD Work Phone: Start: 01-26-2025 Fluoroscopic guidance Boo Wiggins MD Work Phone: Start: 01-26-2025 Plain X-ray of femur Dr Chucho Wiggins MD Work Phone: Start: 01-26-2025 Intramedullary naili ng of femur Dr. Nando Wiggins MD Work Phone: Start: 01-25-2025 X-ray of knee, one o [...] Start: 01-25-[address] Nando iWggins MD Work Phone: Start: 01-23-2025 Blood count smear mc rscp w/mnl difrntl wbc count Dr. Nando Wiggins MD Work Phone: Start: 01-23-2025 Mean corpuscular hemoglobin concentration determination Dr. Nando Wiggins MD Work Phone: Start: 01-23-[address] Kathie Wiggins MD Work Phone: Start: 01-23-2025 Nucleated red blood cell count procedure Dr. Nando Wiggins MD Work Phone: Start: 01-23-2025 Platelet mean volume determination Dr. Nando Wiggins MD Work Phone: Start: 12-24-2024 Blood count smear mc rscp w/mnl difrntl wbc count Dr. Nando Wiggins MD Work Phone: Start: 12-24-2024 Mean corpuscular hemoglobin concentration determination Dr. Nando Wiggins MD Work Phone: Start: 12-24-[address] Kathie Wiggins MD Work Phone: Start: 12-24-2024 Nucleated red blood cell count procedure Dr. Nando Wiggins MD Work Phone: Start: 12-24-2024 Platelet mean volume determination Dr. Nando Wiggins MD Work Phone: Start: 12-19-2024 Vitamin D, 25-hydrox y measurement Dr. Nando Wiggins MD Work Phone: Start: 12-12-2024 Vitamin D, 25-hydrox y measurement Dr. Nando Wiggins MD Work Phone: Start: 11-27-2024 Antibody screen JUAN ANTONIO PHER BURSLEY Comment on above: Order Comment: Speci men Type: BLOOD SPECIMENOrdering Facility: [facility] Address: [address] [place] [address] Performed By: #### T SCR ####CC MAIN BLOOD BANKCLIA [id number] [address] Start: 11-23-2024 Antibody screen JUAN ANTONIO PHER BURSLEY Comment on above: Order Comment: Speci men Type: BLOOD SPECIMENOrdering Facility: [facility] Address: [address] [place] [address] Performed By: #### T SCR ####CC MAIN BLOOD BANKCLIA [id number] [address] Start: 11-22-2024 Plain chest X-ray Dr. [...] Nando Wiggins MD Work Phone: Start: 11-22-[address] Kathie Wiggins MD Work Phone: Start: 11-22-2024 Nucleated red blood cell count procedure Dr. Nando Wiggins MD Work Phone: Start: 11-22-2024 Platelet mean volume determination Dr. Nando Wiggins MD Work Phone: Start: 11-12-[address] Nando Wiggins MD Work Phone: Start: 11-12-2024 Total cholesterol:HD L ratio measurement Dr. Nando Wiggins MD Work Phone: Start: 11-12-[address] Nando Wiggins MD Work Phone: [...] Nando Wiggins MD Work Phone: Start: 11-05-[address] Kathie Wiggins MD Work Phone: Start: 11-05-2024 Nucleated red blood cell count procedure Dr. Nando Wiggins MD Work Phone: Start: 11-05-2024 Platelet mean volume determination Dr. Nando Wiggins MD Work Phone: Start: 10-29-2024 Blood count smear mc rscp w/mnl difrntl wbc count Dr. Nando Wiggins MD Work Phone: Start: 10-29-2024 Mean corpuscular hemoglobin concentration determination Dr. Nando Wiggins MD Work Phone: Start: 10-29-[address] Kathie Wiggins MD Work Phone: Start: 10-29-2024 Nucleated [...] Work Phone: Start: 07-02-2024 BUN/Creatinine ratio Dr Cuhcho Yan MD Work Phone: Start: 07-02-2024 Mean [...] 12-06-2022 Hemoglobin A1c/Hemoglobin.total in Blood Lauren Podlogar JUDICIAL ASSISTANT.RADIOLOGIC TECHNOLOGY PROGRAM DIRECTOR Work Phone: Start: 09-06-2022 Hemoglobin A1c/Hemoglobin.total in Blood Lauren Podlogar JUDICIAL ASSISTANT.RADIOLOGIC TECHNOLOGY PROGRAM DIRECTOR Work Phone: Start: 03-05-2022 PFIZER-BIONTECH COVI D-19 [...] Start: 11-17-2016 End: 11-17-2016 Nuclear stress test -Kayodeiscan Laron Bacon MD Start: 10-27-2016 End: 10-27-2016 [...] Detail Author Start: 04-26-2028 Urine microalbumin profile [facility] Start: 11-23-2025 Hepatitis B surface antibody level LDL Cholesterol [facility] Start: 09-17-2025 Glaucoma screening Dilated Retinal Exam [facility] Start: 05-26-2025 Hemoglobin A1c measurement HbA1C [facility] Start: 03-12-2025 [facility] Start: 03-07-2025 [facility] Start: 01-29-[address] [facility] Start: 01-28-2025 Transfusion of blood product [facility] Start: 01-28-2025 End: 01-28-2025 [facility] Start: 01-28-[address] [facility] Start: 01-28-2025 Administration of blood product [facility] Start: 01-26-2025 [facility] Start: 01-26-2025 Referral for physical therapy [facility] Start: 01-26-2025 Referral to occupational therapist [facility] Start: 01-26-[address] [facility] Start: 01-26-2025 [facility] Start: 01-26-2025 Care planning and problem solving actions [facility] Start: 01-26-[address] [facility] Start: 01-26-2025 Plain X-ray of femur [facility] Start: 01-26-2025 End: 01-26-2025 [facility] Start: 01-26-[address] [facility] Start: 01-25-2025 Application of intermittent pneumatic compression device [facility] Start: 01-25-2025 [facility] Start: 01-25-[address] [facility] Start: 01-25-2025 Following clinical pathway protocol [facility] Start: 01-25-2025 Assessment of risk of venous thromboembolism [facility] Start: 01-25-2025 Care regimes management [facility] Start: 01-25-2025 Insertion of catheter into peripheral vein [facility] Start: 01-25-2025 Measuring intake and output [facility] Start: 01-25-2025 Notification of physician [facility] Start: 01-25-[address] [facility] Start: 01-25-2025 Providing care according to standard [facility] Start: 01-25-2025 Provision [address] privileges [facility] Start: 01-25-2025 Referral for physical therapy [facility] Start: 01-25-2025 Referral to occupational therapist [facility] Start: 01-25-[address] [facility] Start: 01-25-2025 End: 01-25-2025 [facility] Start: 01-25-[address] [facility] Start: 01-25-2025 Hospital admission, emergency, from emergency room, medical nature [facility] Start: 01-25-2025 Patient referral to dietitian [facility] Start: 01-21-2025 Influenza vaccination Influenza Vaccine (#1) [facility] Start: 01-08-2025 End: 01-08-2025 Patient encounter procedure 01/08/2025 10:30 AM EDT Appointment Cardiology [address] [place] [address] OUTPATIENT 4-6W DEVICE CHECK (PACEMAKER) Cardiology Comment on above: OUTPATIENT 4-6W DEVICE CHECK (PACEMA KER) Start: 11-22-2024 End: 11-22-2024 [facility] Start: 11-08-2024 [facility] Start: 09-04-[address] [facility] Start: 09-04-2024 End: 09-04-2024 [facility] Start: 09-04-[address] [facility] Start: 09-03-2024 Application of intermittent pneumatic compression device [facility] Start: 09-03-[address] [facility] Start: 09-03-2024 [facility] Start: 09-01-2024 End: 09-01-2024 [facility] Start: 09-01-[address] [facility] Start: 09-01-[address] [facility] Start: 08-30-2024 Following clinical pathway protocol [facility] Start: 08-30-2024 [facility] Start: 08-30-2024 End: 08-30-2024 [facility] Start: 08-30-[address] [facility] Start: 08-30-2024 Referral [facility] Start: 08-29-2024 Following clinical pathway protocol [facility] Start: 08-29-2024 Assessment of risk of venous thromboembolism [facility] Start: 08-29-2024 Care regimes management [facility] Start: 08-29-2024 Insertion of catheter into peripheral vein [facility] Start: 08-29-2024 Notification of physician [facility] Start: 08-29-2024 Providing care according to standard [facility] Start: 08-29-2024 Referral to occupational therapist [facility] Start: 08-29-[address] [facility] Start: 08-29-2024 End: 08-29-2024 [facility] Start: 08-29-[address] [facility] Start: 08-01-2024 [facility] Start: 07-20-[address] [facility] Start: 07-19-2024 End: 07-19-2024 [facility] Start: 07-19-[address] [facility] Start: 07-17-2024 End: 07-17-2024 [facility] Start: 07-17-[address] [facility] Start: 07-17-[address] [facility] Start: 07-16-2024 Following clinical pathway protocol [facility] Start: 07-16-[address] [facility] Start: 07-14-2024 [facility] Start: 07-14-[address] [facility] Start: 07-14-2024 End: 07-14-2024 [facility] Start: 07-14-[address] [facility] Start: 07-13-2024 Application of intermittent pneumatic compression device [facility] Start: 07-13-2024 Assessment of risk of venous thromboembolism [facility] Start: 07-13-2024 Care regimes management [facility] Start: 07-13-[address] [facility] Start: 07-13-2024 Insertion of catheter into peripheral vein [facility] Start: 07-13-2024 Measuring intake and output [facility] Start: 07-13-2024 Notification of physician [facility] Start: 07-13-2024 Providing care according to standard [facility] Start: 07-13-2024 [address]vision [address] privileges [facility] Start: 07-13-2024 Referral [facility] Start: 07-13-2024 Referral to occupational therapist [facility] Start: 07-13-2024 Referral to electrical logging engineer [facility] Start: 07-13-[address] [facility] Start: 07-13-2024 End: 07-13-2024 [facility] Start: 07-13-[address] [facility] Start: 07-09-2024 End: 07-09-2024 Patient encounter procedure 07/09/2024 9:40 AM EST Office Visit [facility] [address] [place] [address] Husam Yan MD [address] [place] [address] 6 month follow up [facility] Comment on above: 6 month follow up Start: 07-07-2024 [facility] Start: 07-03-2024 [facility] Start: 07-02-[address] [facility] Start: 07-02-2024 End: 07-02-2024 [facility] Start: 07-02-[address] [facility] Start: 07-02-2024 Assessment of risk of venous thromboembolism [facility] Start: 07-02-2024 Catheterization of vein [facility] Start: 07-02-2024 Insertion of catheter into peripheral vein [facility] Start: 07-02-2024 Measuring intake and output [facility] Start: 07-02-2024 Providing care according to standard [facility] Start: 07-02-2024 Referral [facility] Start: 07-02-[address] [facility] Start: 06-28-2024 Hemoglobin A1c measurement HbA1C [facility] Start: 06-06-2024 Adjt tis trns/reargmt f/c/c/m/n/a/g/h/f 10sqcm/< [facility] Start: 06-06-[address]24 [address] [facility] Start: 06-06-2024 Anes open proc bones lower leg/ankle/foot nos [facility] Start: 06-06-2024 Catheterization of vein [facility] Start: 06-06-2024 Neurovascular assessment [facility] Start: 06-06-[address] [facility] Start: 06-06-[address] [facility] Start: 06-06-2024 Vital signs measurements [facility] Start: 06-06-2024 [facility] Start: 05-25-2024 Hepatitis B surface antibody level LDL Cholesterol [facility] Start: 05-23-2024 Advance Directive Discussion Advance Directive Discussion [facility] Start: 05-23-2024 Medicare Advantage Annual Wellness Visit Medicare Advantage Annual Wellness Visit [facility] Start: 04-27-2024 Glaucoma screening Dilated Retinal Exam [facility] Start: 10-02-2024 3 comp foot exam completed Diabetic Foot Exam [facility] Start: 02-22-2024 Diabetic foot examination Diabetic Foot Exam [facility] Start: 02-10-2024 End: 02-10-2024 Patient encounter procedure 02/10/2024 11:30 AM EDT Office Visit Podiatry [address] [place] [address] [facility] [address] [place] [address] 3 month follow up nail care Podiatry Comment on above: 3 month follow up nail care Start: 01-22-2024 Covid-19 Vaccine () Covid-19 Vaccine () [facility] Start: 01-22-2024 Covid-19 Vaccine () Covid-19 Vaccine () [facility] Start: 01-22-2024 Influenza vaccination Influenza Vaccine (#1) [facility] Start: 01-06-2024 End: 04-06-2024 Comprehensive metabolic 2000 panel - Serum or Plasma COMPREHENSIVE METABOLIC PANEL Lab Routine 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 edema, with long-term current use of insulin (HCC) Expected: 01/06/2024, Expires: 04/06/2024 [facility] Work Phone: Comment on above: Expected: 01/06/2024, Expires: Start: 01-06-2024 End: 04-06-2024 Hemoglobin A1c in Blood HEMOGLOBIN A1C Lab Routine 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 edema, with long-term current use of insulin (HCC) Expected: 01/06/2024, Expires: 04/06/2024 [facility] Comment on above: Expected: 01/06/2024, Expires: 4 Start: 11-04-2023 End: 11-04-2023 Patient encounter procedure Podiatry Comment on above: 3 month follow up nail care 4 month follow up Start: 08-24-2023 Hemoglobin A1c measurement HbA1C [facility] Start: 07-06-2023 Hepatitis B Vaccine (9 of 9 - Risk Dialysis Recombivax 3-dose series) Hepatitis B Vaccine (9 of 9 - Risk Dialysis Recombivax 3-dose series) [facility] Start: 06-24-2023 Covid-19 Vaccine (4 - Additional dose for Gage series) Covid-19 Vaccine (4 - Additional dose for Gage series) [facility] Start: 06-24-2023 Covid-19 Vaccine () Covid-19 Vaccine () [facility] Start: 06-07-2023 SHINGRIX VACCINE (1 of 2) SHINGRIX VACCINE (1 of 2) [facility] Comment on above: Postponed from 1954 (Declined at t his time) Postponed from 04/30 (Declined at this time) Start: 05-23-2023 Advance Directive Discussion Advance Directive Discussion [facility] Start: 05-23-2023 Behavioral Health Screening Behavioral Health Screening [facility] Start: 03-08-2023 Hemoglobin A1c/Hemoglobin.total in Blood HBA1C [facility] Start: 03-05-2023 Hepatitis B surface antibody level LDL CHOLESTEROL [facility] Start: 03-04-2023 Hepatitis B Vaccine (6 of 6 - Risk Dialysis Recombivax 3-dose series) Hepatitis B Vaccine (6 of 6 - Risk Dialysis Recombivax 3-dose series) [facility] Start: 02-08-2023 Hepatitis C antibody, confirmatory test DILATED RETINAL EXAM [facility] Start: 01-21-2023 Influenza vaccination INFLUENZA (#1) [facility] Start: 12-06-2022 Hemoglobin A1c/Hemoglobin.total in Blood HBA1C [facility] Start: 09-06-2022 End: 11-06-2022 Hemoglobin A1c in Blood HGB A1C Lab Routine 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, without long-term current use of insulin (HCC) Expected: 09/06/2022, Expires: 11/06/2022 [facility] Work Phone: Comment on above: Expected: 09/06/2022, Expires: Start: 09-05-2022 Hemoglobin A1c/Hemoglobin.total in Blood HBA1C [facility] Start: 09-02-2022 3 comp foot exam completed DIABETIC FOOT EXAM [facility] Start: 07-06-2022 COVID-19 VACCINE (4 - Additional dose for Gage series) COVID-19 VACCINE (4 - Additional dose for Gage series) [facility] Start: 06-07-2022 End: 08-07-2022 Comprehensive metabolic 2000 panel - Serum or Plasma [facility] Work Phone: Comment on above: Expected: 06/07/2022, Expires: 3 Start: 06-07-2022 End: 08-07-2022 Hemoglobin A1c in Blood [facility] Work Phone: Comment on above: Expected: 06/07/2022, Expires: 3 Start: 06-05-2022 Hemoglobin A1c/Hemoglobin.total in Blood HBA1C [facility] Start: 05-23-2022 ADVANCE DIRECTIVE DISCUSSION ADVANCE DIRECTIVE DISCUSSION [facility] Start: 02-25-2022 Hepatitis B surface antibody level LDL CHOLESTEROL [facility] Start: 01-21-2022 Influenza vaccination INFLUENZA (#1) [facility] Start: 12-05-2021 Hepatitis C antibody, confirmatory test DILATED RETINAL EXAM [facility] Start: 12-02-2021 Hemoglobin A1c/Hemoglobin.total in Blood HBA1C [facility] Start: 07-24-2021 COVID-19 VACCINE (3 - Booster for Gage series) COVID-19 VACCINE (3 - Booster for Gage series) [facility] Start: 05-23-2021 ADVANCE DIRECTIVE DISCUSSION ADVANCE DIRECTIVE DISCUSSION [facility] Start: 05-23-2021 DEPRESSION ASSESSMENT DEPRESSION ASSESSMENT [facility] Start: 05-21-2021 COVID-19 VACCINE (3 - Booster for Gage series) COVID-19 VACCINE (3 - Booster for Gage series) [facility] Start: 05-12-2017 End: 05-12-2017 Appointment Appointment [facility] Work Phone: Start: 10-27-2016 End: 10-27-2016 Appointment Appointment [facility] Work Phone: Start: 10-27-2016 End: 10-27-2016 Echocardiography Echocardiogram (complete) [facility] [place] Work Phone: Start: 10-27-2016 End: 10-27-2016 Electrocardiogram, complete EKG (In office) [facility] Work Phone: Start: 10-27-2016 End: 10-27-2016 Follow Up Appt 6 months Follow Up Appt 6 months [facility] Work Phone: Start: 10-27-2016 End: 10-27-2016 MMM MMM [facility] Work Phone: Start: 10-27-2016 End: 10-27-2016 Nuclear stress test -Lexiscan Nuclear stress test -Lexiscan [facility] Work Phone: Start: 2012 RSV Vaccine (1 - 1-dose 75+ series) RSV Vaccine (1 - 1-dose 75+ series) [facility] Start: 1997 RSV Vaccine (1 - 1-dose 60+ series) RSV Vaccine (1 - 1-dose 60+ series) [facility] Start: 1987 SHINGRIX VACCINE (1 of 2) SHINGRIX VACCINE (1 of 2) [facility] Start: 1956 SHINGRIX VACCINE (1 of 2) SHINGRIX VACCINE (1 of 2) [facility] Start: 1955 Anxiety Screening Anxiety Screening [facility] Start: 1955 Depression Screening Depression Screening [facility] Patient Education [facility] Work Phone: Patient referral [facility] Work Phone: Referral for further care [facility] Immunizations Immunization Date Immunization Notes Care Provider [facility] 04-01-2024 influenza virus vaccine, unspecified formulation William Chilel MD Work Phone: [facility] 03-15-2024 influenza, injectabl e, quadrivalent, preservative free Dr. Jean Yan MD Work Phone: [facility] 02-21-2023 COVID-19 vaccine, ag e 12+ yr, 2022- season ([employer]) Husam Yan MD Work Phone: [facility] 02-21-2023 influenza (HD-IIV4) vaccine, age 65+ yr, high dose, quadrivalent, PF (FLUZONE HIGH-DOSE) Husam Yan MD Work Phone: [facility] 02-21-2023 influenza virus vaccine, unspecified formulation JEAN PIERRE ARREAGA MD [facility] 02-21-2023 SARS-CoV-2 (COVID-19 ) [id number] JEAN PIERRE ARREAGA MD [facility] Comment on above: Result Comment: 2023: [id number] 03-05-2022 COVID-19 booster vaccine, age 12+ yr, bivalent ([employer]) Husam Yan MD Work Phone: [facility] 03-04-2022 Hepatitis B vaccine (recombinant), CpG adjuvanted Husam Yan MD Work Phone: [facility] Work Phone: 02-25-2022 influenza, high-dose , quadrivalent vaccine (FLUZONE HIGH DOSE QUADRIVALENT) Husam Yan MD Work Phone: [facility] Work Phone: 03-26-2021 SARS-CoV-2 (COVID-19 ) [id number] vaccine JEAN PIERRE ARREAGA MD [facility] 02-17-2021 influenza, high-dose , quadrivalent vaccine (FLUZONE HIGH DOSE QUADRIVALENT) Husam Yan MD Work Phone: [facility] 12-30-2020 Hepatitis B vaccine (recombinant), CpG adjuvanted Husam Yan MD Work Phone: [facility] 10-02-2020 Hepatitis B vaccine (recombinant), CpG adjuvanted Husam Yan MD Work Phone: [facility] 07-31-2020 COVID-19 vaccine (GAGE) Husam Yan MD Work Phone: [facility] Comment on above: Result Comment: 2023: [id number] 07-01-2020 hepatitis B vaccine, adult dosage Husam Yan MD Work Phone: [facility] 06-03-2020 hepatitis B vaccine, adult dosage Husam Yan MD Work Phone: [facility] 04-19-2020 influenza virus vaccine, unspecified formulation JEAN PIERRE ARREAGA MD [facility] 04-19-2020 influenza, injectabl e, quadrivalent, preservative free Dr. Jean Yan MD Work Phone: [facility] 04-19-2020 influenza, seasonal, injectable Dr. Jean Yan Work Phone: [facility] Work Phone: 04-19-2020 influenza, seasonal, injectable, preservative free Husam Yan MD Work Phone: [facility] Work Phone: 02-28-2019 influenza virus vaccine, unspecified formulation JEAN PIERRE ARREAGA MD [facility] 02-28-2019 influenza, high dose seasonal, preservative-free Husam Yan MD Work Phone: [facility] 06-12-2014 pneumococcal conjuga te vaccine, 13 valent Husam Yan MD Work Phone: [facility] 02-20-2011 influenza virus vaccine, unspecified formulation Husam Yan MD Work Phone: [facility] Work Phone: 02-14-2009 influenza virus vaccine, unspecified formulation Husam Yan MD Work Phone: [facility] Work Phone: 11-01-2007 diphtheria and tetan us toxoids, adsorbed for pediatric use Husam Yan MD Work Phone: [facility] Work Phone: 05-08-2007 influenza virus vaccine, unspecified formulation Husam Yan MD Work Phone: [facility] Work Phone: 03-28-2006 influenza virus vaccine, unspecified formulation Husam Yan MD Work Phone: [facility] 03-04-2006 pneumococcal polysaccharide vaccine, 23 valent Husam Yan MD Work Phone: [facility] Work Phone: Payers Date Payer Category Payer Medicaid [id number] 10-28-2023 Self-pay [id number] 01-21-2021 Medicare HUMANA MEDICARE HU[employer]NA MEDICARE PPO [id number] 01/21/2021-Present [phone] [place] [address] [id number] 05-23-2017 Medicare [id number] 05-23-2017 Medicare ([place] Care) [place] [id number] 05-23-2012 Medicare [id number] 1937 Unknown [id number] 2.16.840.1.647873.3.579.2. 627 Unknown SELF PAY INSURANCE [id number] Unknown [id number] 2.16.840.1.497685.3.579.2. 462 Unknown [id number] 2.16.840.1.586056.3.579.2. 462 Unknown [id number] 2.16.840.1.102449.3.579.2. 462 Unknown [id number] 2.16.840.1.910644.3.579.2. 462 Unknown [id number] 2.16.840.1.298080.3.579.2. 462 Unknown [id number] 2.840.1.283924.3.579.2. 462 Unknown [id number] 2..840.1.338733.3.579.2. 462 Unknown [id number] 2.16.840.1.108105.3.579.2. 462 Unknown [id number] 2.16.840.1.909928.3.579.2. 462 Unknown [id number] 2..840.1.104029.3.579.2. 462 Unknown [id number] 2..840.1.261259.3.579.2. 462 Unknown [id number] 2.16.840.1.877490.3.579.2. 462 Unknown [id number] 2.16.840.1.375608.3.579.2. 462 Unknown [id number] 2.16.840.1.794286.3.579.2. 462 Unknown [id number] 2.16.840.1.039629.3.579.2. 462 Unknown [id number] 2.16.840.1.801055.3.579.2. 462 Unknown [id number] 2.16.840.1.598650.3.579.2. 462 Unknown [id number] 2.16.840.1.924081.3.579.2. 462 Unknown [id number] 2.16.840.1.210538.3.579.2. 462 Unknown [id number] 2.16.840.1.463216.3.579.2. 462 Unknown [id number] 2.16.840.1.388343.3.579.2. 462 Unknown [id number] 2.16.840.1.117496.3.579.2. 462 Unknown [id number] 2.16.840.1.542794.3.579.2. 462 Unknown [id number] 2.16.840.1.919386.3.579.2. 462 Unknown [id number] 2.16.840.1.271644.3.579.2. 462 Unknown [id number] 2.16.840.1.331837.3.579.2. 462 Unknown [id number] 2.16.840.1.979197.3.579.2. 462 Unknown [id number] 2.16.840.1.215485.3.579.2. 462 Unknown [id number] 2.16.840.1.295119.3.579.2. 462 Unknown [id number] 2.16.840.1.826570.3.579.2. 462 Unknown [id number] 2.16.840.1.979873.3.579.2. 462 Unknown [id number] 2.16.840.1.349956.3.579.2. 462 Unknown [id number] 2.16.840.1.920967.3.579.2. 462 Unknown [id number] 2.16.840.1.829181.3.579.2. 462 Unknown [id number] 2.16.840.1.755492.3.579.2. 462 Unknown [id number] 2.16.840.1.258484.3.579.2. 462 Unknown [id number] 2.16.840.1.529030.3.579.2. 462 Unknown [id number] 2.16.840.1.394780.3.579.2. 462 Unknown [id number] 2.16840.1.251153.3.579.2. 462 Unknown [id number] 2.16.840.1.345847.3.579.2. 462 Unknown [id number] 2.840.1.779977.3.579.2. 462 Unknown [id number] 2..840.1.290470.3.579.2. 462 Unknown [id number] 2.840.1.310178.3.579.2. 462 Unknown [id number] 2.840.1.551078.3.579.2. 462 Unknown [id number] 2.840.1.130638.3.579.2. 462 Unknown [id number] 2.840.1.686152.3.579.2. 462 Unknown [id number] 2.840.1.686544.3.579.2. 462 Unknown [id number] 2.840.1.784460.3.579.2. 462 Unknown [id number] 2.840.1.005506.3.579.2. 462 Unknown [id number] 2.840.1.413609.3.579.2. 462 Unknown [id number] 2.840.1.317245.3.579.2. 462 Unknown [id number] 2.840.1.099564.3.579.2. 462 Unknown [id number] 2.840.1.478784.3.579.2. 462 Unknown [id number] 2.16.840.1.441492.3.579.2. 462 Unknown [id number] 2.16.840.1.857118.3.579.2. 462 Unknown [id number] 2.16.840.1.552058.3.579.2. 462 Unknown [id number] 2.16.840.1.503199.3.579.2. 462 Unknown [id number] 2.16.840.1.102744.3.579.2. 462 Unknown [id number] 2.16.840.1.152085.3.579.2. 462 Unknown [id number] 2.16.840.1.753256.3.579.2. 462 Unknown [id number] 2.840.1.789618.3.579.2. 462 Unknown [id number] 2.16840.1.901577.3.579.2. 462 Unknown [id number] 2.16.840.1.129204.3.579.2. 462 Unknown [id number] 2.16.840.1.439711.3.579.2. 462 Unknown [id number] 2.16.840.1.737994.3.579.2. 462 Unknown [id number] 2.16.840.1.195639.3.579.2. 462 Unknown [id number] 2.16.840.1.629992.3.579.2. 462 Unknown [id number] 2.16.840.1.790655.3.579.2. 462 Unknown [id number] 2.16.840.1.039462.3.579.2. 462 Unknown [id number] 2.16.840.1.665233.3.579.2. 462 Unknown [id number] 2.16.840.1.386252.3.579.2. 462 Unknown [id number] 2.16.840.1.704295.3.579.2. 462 Unknown [id number] 2.16.840.1.051491.3.579.2. 462 Unknown [id number] 2.16.840.1.976946.3.579.2. 462 Unknown [id number] 2.16.840.1.381664.3.579.2. 462 Unknown [id number] 2.16.840.1.575070.3.579.2. 462 Unknown [id number] 2.16.840.1.802496.3.579.2. 462 Unknown [id number] 2.16.840.1.263835.3.579.2. 462 Unknown [id number] 2.16.840.1.060290.3.579.2. 462 Unknown [id number] 2.16.840.1.925635.3.579.2. 462 Unknown [id number] 2.16.840.1.805250.3.579.2. 462 Unknown [id number] 2.16.840.1.947561.3.579.2. 462 Unknown [id number] 2.16.840.1.051745.3.579.2. 462 Unknown [id number] 2.16.840.1.672618.3.579.2. 462 Unknown [id number] 2.16.840.1.250252.3.579.2. 462 Unknown [id number] 2.16.840.1.210808.3.579.2. 462 Unknown [id number] 2.16.840.1.803330.3.579.2. 462 Unknown [id number] 2.16.840.1.389800.3.579.2. 462 Unknown [id number] 2.16.840.1.624940.3.579.2. 462 Unknown [id number] 2.16.840.1.206855.3.579.2. 462 Unknown [id number] 2.16.840.1.038951.3.579.2. 462 Unknown [id number] 2.16.840.1.472863.3.579.2. 462 Unknown [id number] 2.16.840.1.419051.3.579.2. 462 Unknown [id number] 2.16.840.1.463992.3.579.2. 462 Unknown [id number] 2.16.840.1.711230.3.579.2. 462 Unknown [id number] 2.16.840.1.237678.3.579.2. 462 Unknown [id number] 2.16.840.1.739441.3.579.2. 462 Unknown [id number] 2.16.840.1.537000.3.579.2. 462 Unknown [id number] 2.16.840.1.294096.3.579.2. 462 Unknown [id number] 2.16.840.1.320133.3.579.2. 462 Unknown [id number] 2.16.840.1.381063.3.579.2. 462 Unknown [id number] 2.16.840.1.166974.3.579.2. 462 Unknown [id number] 2.16.840.1.895660.3.579.2. 462 Unknown [id number] 2.16.840.1.975061.3.579.2. 462 Unknown [id number] 2.16.840.1.253177.3.579.2. 462 Unknown [id number] 2.16.840.1.403270.3.579.2. 462 Unknown [id number] 2.16.840.1.309359.3.579.2. 462 Unknown [id number] 2.16.840.1.007135.3.579.2. 462 Unknown [id number] 2.16.840.1.536475.3.579.2. 462 Unknown [id number] 2.16.840.1.678896.3.579.2. 462 Unknown [id number] 2.16.840.1.266665.3.579.2. 462 Unknown [id number] 2.16.840.1.930565.3.579.2. 462 Unknown [id number] 2.16.840.1.632620.3.579.2. 462 Unknown [id number] 2.16.840.1.407309.3.579.2. 462 Unknown [id number] 2.16.840.1.251579.3.579.2. 462 Unknown [id number] 2.16.840.1.612125.3.579.2. 462 Unknown [id number] 2.16.840.1.170781.3.579.2. 462 Unknown [id number] 2.16840.1.136197.3.579.2. 462 Unknown [id number] 2.16.840.1.224669.3.579.2. 462 Unknown [id number] 2.16.840.1.688633.3.579.2. 462 Unknown [id number] 2.16.840.1.788554.3.579.2. 462 Unknown [id number] 2.16.840.1.818197.3.579.2. 462 Unknown [id number] 2.16.840.1.324258.3.579.2. 462 Unknown [id number] 2.16.840.1.366055.3.579.2. 462 Unknown [id number] 2.16.840.1.605714.3.579.2. 462 Unknown [id number] 2.16.840.1.991082.3.579.2. 462 Unknown [id number] 2.16.840.1.142582.3.579.2. 462 Unknown [id number] 2.16.840.1.926608.3.579.2. 462 Unknown [id number] 2.16.840.1.307201.3.579.2. 462 Unknown [id number] 2.16.840.1.356710.3.579.2. 462 Unknown [id number] 2.16.840.1.052862.3.579.2. 462 Unknown [id number] 2.16.840.1.605891.3.579.2. 462 Unknown [id number] 2.16.840.1.915235.3.579.2. 462 Unknown [id number] 2.16.840.1.110971.3.579.2. 462 Unknown [id number] 2.16.840.1.654426.3.579.2. 462 Unknown 52323558 2.16840.1.191521.3.579.2. 462 Unknown 14208369 2.16840.1.600660.3.579.2. 462 Unknown [id number] 2.16840.1.393747.3.579.2. 462 Unknown [id number] 2.16.840.1.766602.3.579.2. 462 Unknown [id number] 2.16.840.1.939983.3.579.2. 462 Unknown [id number] 2.16840.1.864069.3.579.2. 462 Unknown [id number] 2.16.840.1.623577.3.579.2. 462 Unknown [id number] 2.16.840.1.450421.3.579.2. 462 Unknown [id number] 2.16.840.1.657969.3.579.2. 462 Unknown [id number] 2.16.840.1.435072.3.579.2. 462 Unknown [id number] 2.16.840.1.451240.3.579.2. 462 Unknown [id number] 2.16.840.1.219041.3.579.2. 462 Unknown [id number] 2.16.840.1.165928.3.579.2. 462 Unknown [id number] 2.16.840.1.313126.3.579.2. 462 Unknown [id number] 2.16.840.1.379187.3.579.2. 462 Unknown [id number] 2.16.840.1.553162.3.579.2. 462 Social History Date Type Detail Facility Start: 07-25-2017 End: 03-05-2022 Tobacco smoking status NHIS Ex-smoker [facility] History of tobacco use Cigar Smoker [facility] Start: 07-25-2017 End: 03-05-2022 Tobacco use and exposure Smokeless tobacco non-user [facility] Start: 07-15-2021 End: 11-26-2024 Alcohol intake Current drinker of alcohol (finding) [facility] Start: 07-15-2021 End: 12-06-2022 Alcohol intake [facility] Work Phone: Start: 11-18-2016 History SDOH Alcohol Comment rarely [facility] Start: 04-28-2017 Tobacco Comment Occasionally [facility] Start: 1935 Sex Assigned At Not on file [facility] Start: 02-02-2021 End: 03-05-2022 Exposure to SARS-CoV-2 (event) Not sure [facility] Start: 11-06-2021 Tobacco smoking stat us SCIS Unknown if ever smoked [facility] Work Phone: Start: 04-18-2020 None [facility] Start: 08-28-2020 Spouse/ Signif icant Other [facility] Start: 09-26-2020 Non-smoker [facility] Start: 1935 Sex Assigned At Male A [facility] History of tobacco use Current smoker [facility] Start: 12-06-2022 End: 11-26-2024 Tobacco use panel [facility] Work Phone: Adult Depression Screening Assessment 0 [facility] Work Phone: Start: 08-28-2024 End: 03-08-2025 Tobacco smoking status NHIS Never smoked tobacco (finding) [facility] Has the [employer], or [employer] threatened to shut off services in your home in past 12Mo No [facility] Work Phone: (I/We) worried wheth er (my/our) food would run out before (I/we) got money to buy more. Never true [facility] Medical Equipment Procedure Code Equipment Code Equipment Original Text Equipment Identifier Dates Insertion, intramedullary yessy, femur, using titanium trochanteric fixation nail syste FDA Start: 01-26-2025 Insertion, intramedullary yessy, femur, using titanium trochanteric fixation nail syste FDA Start: 01-26-2025 Insertion, intramedullary yessy, femur, using titanium trochanteric fixation nail syste FDA Start: 01-26-2025 Insertion, intramedullary yessy, femur, using titanium trochanteric fixation nail syste FDA Start: 01-26-2025 Insertion, intramedullary yessy, femur, using titanium trochanteric fixation nail syste FDA Start: 01-26-2025 Insertion, intramedullary yessy, femur, using titanium trochanteric fixation nail syste FDA Start: 01-26-2025 Insertion, intramedullary yessy, femur, using titanium trochanteric fixation nail syste FDA Start: 01-26-2025 Insertion, intramedullary yessy, femur, using titanium trochanteric fixation nail syste FDA Start: 01-26-2025 Insertion, intramedullary yessy, femur, using titanium trochanteric fixation nail syste FDA Start: 01-26-2025 Insertion, intramedullary yessy, femur, using titanium trochanteric fixation nail syste FDA Start: 01-26-2025 Insertion, intramedullary yessy, femur, using titanium trochanteric fixation nail syste FDA Start: 01-26-2025 Insertion, intramedullary yessy, femur, using titanium trochanteric fixation nail syste FDA Start: 01-26-2025 Insertion, intramedullary yessy, femur, using titanium trochanteric fixation nail syste FDA Start: 01-26-2025 Insertion, intramedullary yessy, femur, using titanium trochanteric fixation nail syste FDA Start: 01-26-2025 Insertion, intramedullary yessy, femur, using titanium trochanteric fixation nail syste FDA Start: 01-26-2025 Insertion, intramedullary yessy, femur, using titanium trochanteric fixation nail syste FDA Start: 01-26-2025 Insertion, intramedullary yessy, femur, using titanium trochanteric fixation nail syste FDA Start: 01-26-2025 Insertion, intramedullary yessy, femur, using titanium trochanteric fixation nail syste FDA Start: 01-26-2025 Insertion, catheter, hemodialysis CATHETER, CVD PLNDRME 19CM [...] above or below knee FDA Start: 08-29-2024 [id number], [id number], [id number], [id number], [id number], [id number], [id number], [id number] Start: 09-06-2011 End: 10-27-2022 Comment on above: Test blood sugar(s) 2x daily. Dx E11.65. Insulin: No. Test blood sugar(s) 2x daily. Dx: E11.65. Insulin: No Use one needle for e ach dose. 1x/day. 1 Each once daily. Test blood sugar(s) 2 times daily. Dx: Type 2 DM -E11.65 Insulin: No [id number], [id number], [id number], [id number] FDA Start: 04-28-2017 Comment on above: True Metrix Lancets. Test blood sugar(s) 2x daily. Dx: E11.65. Insulin: No True Metrix Test Str ips. Test blood sugar(s) 2x daily. Dx: E11.65. Insulin: No Goals Date Patient Goal Desired Activity /State Functional Status Date Assessment Result Facility [facility] 11-28-2024 Are you deaf, or do you have serious difficulty hearing No 11/28/2024 11:21 AM Danilo Rankin RN No [facility] 11-28-2024 Are you blind, or do you have serious difficulty seeing, even when wearing glasses No 11/28/2024 11:21 AM Danilo Rankin, ISABEL No [facility] 11-28-2024 Do you have serious difficulty walking or climbing stairs Yes 11/28/2024 11:21 AM Danilo Rankin, ISABEL Yes [facility] 11-28-2024 Do you have difficul ty dressing or bathing No 11/28/2024 11:21 AM GETACHEWT Danilo Nesbitt, ISABEL No [facility] 11-28-2024 Because of a physica l, mental, or emotional condition, do you have difficulty doing errands alone such as visiting a physician's office or shopping Yes 11/28/2024 11:21 AM GETACHEWT Danilo Nesbitt, ISABEL Yes [facility] 09-04-2024 Functional status Bedrest [facility] Work Phone: 09-03-2024 Functional status Well [facility] Work Phone: 07-20-2024 [facility] Work Phone: 07-02-2024 Functional status Independent [facility] Work Phone: 09-08-2023 Functional Status Other: eye shield [facility] 09-08-2023 Functional Status Maintained [facility] 09-07-2023 Functional Status [facility] 09-26-2014 Are you deaf, or do you have serious difficulty hearing No 09/26/2014 8:15 AM Pooja Goins RN No [facility] 09-26-2014 Are you blind, or do you have serious difficulty seeing, even when wearing glasses No 09/26/2014 8:15 AM Pooja Goins RN No [facility] 09-26-2014 Do you have serious difficulty walking or climbing stairs No 09/26/2014 8:15 AM Pooja Goins RN No [facility] 09-26-2014 Do you have difficul ty dressing or bathing No 09/26/2014 8:15 AM Pooja Goins RN No [facility] 09-26-2014 Because of a physica l, mental, or emotional condition, do you have difficulty doing errands alone such as visiting a physician's office or shopping No 09/26/2014 8:15 AM Pooja Goins RN No [facility] Mental Status Date Assessment Result Facility 01-29-2025 Cognitive function Appropriate;[facility] Work Phone: 01-29-2025 Cognitive function Voice/Name [facility] Work Phone: 11-28-2024 Because of a physica l, mental, or emotional condition, do you have serious difficulty concentrating, remembering, or making decisions Yes 11/28/2024 11:21 AM Danilo Rankin, ISABEL Yes [facility] 11-22-2024 Cognitive function Voice/Name [facility] Work Phone: 09-04-2024 Cognitive function Voice/Name [facility] Work Phone: 07-20-2024 Cognitive function Voice/Name [facility] Work Phone: 07-07-2024 Cognitive function Voice/Name [facility] Work Phone: 07-03-2024 Cognitive function Follows Commands;Drows y [facility] Work Phone: 07-02-2024 Cognitive function Appropriate;[facility] Work Phone: 06-06-2024 Cognitive function Drowsy [facility] Work Phone: 06-06-2024 Cognitive function Voice/Name [facility] Work Phone: 09-08-2023 Mental Status Oriented x [facility] 09-26-2014 Because of a physica l, mental, or emotional condition, do you have serious difficulty concentrating, remembering, or making decisions No 09/26/2014 8:15 AM Pooja Goins, ISAEBL No [facility] Clinical Notes 12-19-2015 to 02-15-2025 Note Date & Type Note Facility 02-15-2025 Radiology Diagnostic study note [facility] 01-29-2025 Discharge summary Note Date/Time January 29, 2025 12:08pm [facility] Medical Records Department [address] [place] [address] Discharge Summary 01/29/25 1003 MR#: [id number] Acct: [id number] Name: PERLA THOMPSON Rep #:[id number] : 1935 89 From: Jaswant pablo MD PCP: Dr. Nando Wiggins MD Status:A DM IN Location: [facility] MM069-6 Providers Date of Admission: 01/25/25 Primary Care Physician: Dr. Nando Wiggins MD Consultations 01/25/25 19:49 Consult: Orthopedics Routine Consulting Provider: Hakan Gunter Reason for Consult: R hip fx EMERGENT Consult: No Notified: Yes Date Notified: 01/25/25 Time Notified: 19:49 Method of Notification: ED Physician Initiated 01/25/25 19:55 Consult: Nephrology Routine Consulting Provider: Manuel Alva Reason for Consult: esrd on HD EMERGENT Consult: No Notified: Yes Date Notified: 01/26/25 Time Notified: 07:26 Method of Notification: Text Reason For Visit: RIGHT INTRATROCHANTERIC FRACTURE Diagnosis Discharge Diagnosis (1) End stage renal disease: Status: Acute Code(s): N18.6 - End stage renal disease (2) Closed right hip fracture: Status: Acute Code(s): S72.001A - Fracture of unspecified part of neck of right femur, initial encounter for closed fracture (3) Anemia of chronic disease: Status: Chronic Code(s): D63.8 - Anemia in other chronic diseases classified elsewhere Medications at Discharge Home Medications aspirin 81 mg tablet,delayed release (Adult Aspirin Regimen) 81 mg PO DAILY [facility] 07/01/20 Held on 01/29/25. Instructions: Resume on 02/01/25. torsemide 100 mg tablet 100 mg PO MOWEFR water pill 04/14/24 cholecalciferol (vitamin D3) 125 mcg (5,000 unit) capsule 125 mcg PO DAILY SUPPLEMENT 07/13/24 benzocaine 15 mg-menthol 3.6 mg lozenges (Sore Throat (benzocaine with menthol))2 mariaa mucous membrane Q2H PRN PRN sore throat #0 ea 07/20/24 apixaban 2.5 mg tablet (Eliquis) 2.5 mg PO BID #180 tabs 10/30/24 acetaminophen 500 mg capsule 1,000 mg PO Q8H PRN PRN fever or pain 11/22/24 calcium acetate(phosphat bind) 667 mg capsule 667 mg PO TID 01/25/25 dulaglutide 0.75 mg/0.5 mL subcutaneous pen injector (Trulicity) 1.5 mg subcut .Qtuesday 01/25/25 insulin glargine 100 unit/mL (3 mL) subcutaneous pen 14 unit subcut DAILY diabetes 01/25/25 vitamin B complex-vitamin C-folic acid 400 mcg tablet 1 tab PO DAILY 01/25/25 oxycodone 5 mg tablet 5 mg PO Q4H PRN PRN prn pain 4-10 3 days #10 tabs 01/29/25 sennosides 8.6 mg-docusate sodium 50 mg tablet (Stimulant Laxative Plus) 2 tab PO BID #0 tabs 01/29/25 Hospital Course Operations - (R hip IM Nail synthes TFN-A intermediate length 125 angle) Procedures None Summary of Care Provided Minutes Spent on Discharge: 34 Hospital Course: Per HPI: PERLA THOMPSON, is a 89-year-old male history of type 2 diabetes, right BKA, end-stage renal disease on hemodialysis, diabetes, PAD, history chronic heart failure with preserved ejection fraction who presented to [facility] ED 01/25/2025 due to a fall. Reportedly he fell out of his recliner and onto his right hip and had significant pain. In the ED temp 97.5, heart rate 63, blood pressure 131/68, respiratory rate 16 pulse ox 92% on room air. CBC in the ED white count of 6.8, hemoglobin 9.9, BMP with a BUN of 47 tushar creatinine 5.11, glucose 213, patient had hip and pelvis x-ray which showed comminuted impacted right intertrochanteric fracture. Ortho consulted and recommended hospitalist admit with Ortho consult. Patient evaluated with familymembers at bedside, patient denies any complaints other than his right leg hurting significantly, denying any cough or shortness of breath, notes his mouthis dry and wants something to drink. Hospital Course: #Right intertrochanteric fracture due to mechanical fall with postoperative blood loss anemia * right hip xray showed right intertrochanteric comminuted fracture * orthopedics on board. * tody is POD 1 for right hip IM nailing * PT/OT On board * PO aspirin and eliquis on hold. 01/28/2025: Will transfuse 2 units today given his cardiac history. He is down to7.3 he was 10 on admission hopefully can give blood with dialysis today. He hadsome hypotension was started on midodrine 10 mg p.o. 3 times daily, his hypotension is likely related to his blood loss. His Eliquis has been resumed 01/29/2025: Hemoglobin corrected to 9.1 which is an appropriate correction. Continue with transfer to SNF for therapy he will need to follow-up with orthopedic surgery in 2 weeks. I do recommend monitoring his hemoglobin as an outpatient as well as he needs to be on Eliquis to prevent DVTs after his surgery. We will however hold his aspirin for a few days. #History of afib: on eliquis, which is on hold. Resume when ok with orthopedics 01/28/2025: Resumed Eliquis #History of PAD: s/p right BKA. aspirin on hold. Resume as soon as ok with orthopedics #Type 2 diabetes mellitus: on ISS. Accuchecks ACHS #ESRD: on HD. On dialysis Saturdays. On torsemide. Hold torsemide due to hypotension #History of heart block: s/p pacemaker. #HFpEF: on intake and output. Fluid restriction to 1500cc daily. 01/28/2025: Hopefully blood can be transfused during dialysis and the fluid can beremoved otherwise we will need to do diuretic Physical Exam Narrative General: Alert, Oriented x3, Cooperative, No apparent distress HEENT: Atraumatic, PERRLA, EOMI, Normocephalic Oral: Moist Mucosa Neck: Supple, No JVD Lungs: Diminished, Normal air movement, No rhonchi, No wheeze, No rales Cardiovascular: Regular rate, Regular Rhythm, Normal S1, Normal S2, No murmurs Abdomen: Soft, Non Tender, Non-Distended, No Hepato-splenomegaly Extremities: No edema, Capillary Refill Less than 3 Seconds Skin: Right hip dressing CDI Musculoskeletal: Right BKA Neurological: No focal neurological deficits, moves all extremities, right lowerextremity limited the pain, sensation intact Psych/Mental Status: Normal Affect, Appropriate Weight / BMI Weight Weight: 212 lb 15.465 oz Body Mass Index (BMI) 30.4 ABG / Lab / Microbiology Data 01/29/25 04:31 01/29/25 04:31 Laboratory: Laboratory Results - last 24 hr 01/25/25 16:35: Crossmatch See Detail 01/28/25 14:43: Hgb 10.7 L, Hct 32.0 L 01/28/25 16:49: POC Glucose 220 H 01/28/25 20:56: POC Glucose 208 H 01/29/25 04:31: WBC 8.2, RBC 2.99 L, Hgb 9.1 L, Hct 27.8 L, MCV 93.0, MCH 30.4, MCHC 32.7, RDW Std Deviation 57.5 H, RDW Coeff of Frances 17.0 H, Plt Count 137 L, MPV 11.7, Immature Gran % (Auto) 0.900, Neut % (Auto) 68.9, Lymph % (Auto) 13.6 L, [place] % (Auto) 13.7 H, Eos % (Auto) 2.3, Baso % (Auto) 0.6, Absolute Neuts (auto) 5.6, Absolute Lymphs (auto) 1.11, Nucleated RBC % 0, Sodium 134, Potassium 4.1, Chloride 96 L, Carbon Dioxide 23.8, Anion Gap 14, BUN 43 H, Creatinine 4.06 H, Estim Creat Clear Calc 14.95 L, Est GFR (MDRD) Non-Af 14 L, BUN/Creatinine Ratio 10.6, Glucose 218 H, Calcium 8.6 01/29/25 06:02: POC Glucose 207 H D/C Instructions Weight Bearing Status: Weight bearing as tolerated DC O2, CPAP, BIPAP Needs Home O2 Discharge instructions: No Meaningful Use Info Meaningful Use Meaningful Use Diagnoses (Choose all that apply): None applicable Discharge Plan Admission Admit Date/Time: 01/25/25 17:56 Attending Provider: Jaswant Montgomery Primary Care Provider: Nando Wiggins Consulting Providers: Hakan Gunter; Jayla Osuna; Manuel Alva; Kimberly Orozco Discharge Orders/Prescriptions Prescriptions: New oxycodone 5 mg Tablet 5 mg PO Q4H PRN PRN (Reason: prn pain 4-10) 3 Days Qty: 10 0RF sennosides-docusate sodium [Stimulant Laxative Plus] 8.6-50 mg Tablet 2 tab PO BID Qty: 0 0RF Continued torsemide 100 mg tablet 100 mg PO MOWEFR Patient Comments: on non-dialysis days cholecalciferol (vitamin D3) 125 mcg (5,000 unit) capsule 125 mcg PO DAILY Sore Throat (benzocaine-menth) 15-3.6 mg Lozenge 2 mariaa mucous membrane Q2H PRN PRN (Reason: sore throat) Qty: 0 0RF acetaminophen 500 mg capsule 1,000 mg PO Q8H PRN PRN (Reason: fever or pain) B complex-vitamin C-folic acid 400 mcg tablet 1 tab PO DAILY Trulicity 0.75 mg/0.5 mL pen injector 1.5 mg subcut .Qtues Rx Instructions: Once a morning on Tuesday calcium acetate(phosphat bind) 667 mg capsule 667 mg PO TID Rx Instructions: with meals insulin glargine 100 unit/mL (3 mL) insulin pen 14 unit SC DAILY Eliquis 2.5 mg tablet 2.5 mg PO BID Qty: 180 3RF Held aspirin [Adult Aspirin Regimen] 81 mg tablet,delayed release (DR/EC) 81 mg PO DAILY Hold Instructions: Resume on 02/01/25. Discontinued sennosides-docusate sodium [Stimulant Laxative Plus] 8.6-50 mg Tablet 1 tab-cap PO BID PRN PRN (Reason: Constipation) Referrals / Follow Up: Nando Wiggins MD [Primary Care Provider] - Hakan Gunter MD [Med Staff - Active Staff] - Within 2 Weeks Disposition Disposition (needs filled in before D/C Order can be placed): Longterm Facility Charges/Coding Visit Charges Inpatient E&M: 89535 Disch Hosp >30min 01/29/25 1208 <Electronically signed by Jaswant Montgomery MD> Cosigner Signature (if applicable): CC: Dr. Nando Wiggins MD; Dr. Jaswant Montgomery MD~ Signed [facility] Work Phone: [phone]) 912-718309-09-2025 Discharge summary Author Jaswant Montgomery [facility] Note Date/Time January 29, 2025 10:02am [facility] Medical Records Department [address] [place] [address] Transfer to Extended Care MR#: [id number] Acct: [id number] Name: PERLA THOMPSON Rep #:[id number] : 1935 89 From: Jaswant pablo MD PCP: Dr. Nando Wiggins MD Status:A DM IN Certification of patient admission REQUIRED AT TIME OF ADMISSION. I CERTIFY THAT POST-HOSPITAL ECF SERVICES ARE REQUIRED TO BE GIVEN ON AN IN-PATIENT BASIS BECAUSE OF THE ABOVE NAMED PATIENT'S NEED FOR CUSTODIAL CARE ON A CONTINUING BASIS FOR THE CONDITION(S) FOR WHICH HE/SHE WAS RECEIVING IN-PATIENT HOSPITAL SERVICES PRIOR TO HIS/HER TRANSFER TO THE ECF. 01/29/25 1002<Electronically signed by Jaswant Montgomery MD> Diet Diet Order/Speech Therapy: INPATIENT Hospital Diet / Speech Therapy Order(s) 01/26/25 18:40 Diet: Renal - General Dietary Modifications:: Cardiac / Heart Healthy Routine Orders/Code Status Routine Lab Work: CBC and BMP Code Status: Full Code DC O2, CPAP, BIPAP needs Home O2 Discharge instructions: No Wound(s) R FA: Wound Type: Skin Tear right hip: Wound Type: Surgical Incision Therapies Physical Therapy: Eval and Treat Occupational Therapy: Eval and Treat Problem/Diagnosis (1) End stage renal disease: Status: Acute Code(s): N18.6 - End stage renal disease (2) Closed right hip fracture: Status: Acute Code(s): S72.001A - Fracture of unspecified part of neck of right femur, initial encounter for closed fracture (3) Anemia of chronic disease: Status: Chronic Code(s): D63.8 - Anemia in other chronic diseases classified elsewhere Plan #Right intertrochanteric fracture due to mechanical fall with postoperative blood loss anemia * right hip xray showed right intertrochanteric comminuted fracture * orthopedics on board. * tody is POD 1 for right hip IM nailing * PT/OT On board * PO aspirin and eliquis on hold. 01/28/2025: Will transfuse 2 units today given his cardiac history. He is down to7.3 he was 10 on admission hopefully can give blood with dialysis today. He hadsome hypotension was started on midodrine 10 mg p.o. 3 times daily, his hypotension is likely related to his blood loss. His Eliquis has been resumed #History of afib: on eliquis, which is on hold. Resume when ok with orthopedics 01/28/2025: Resumed Eliquis #History of PAD: s/p right BKA. aspirin on hold. Resume as soon as ok with orthopedics #Type 2 diabetes mellitus: on ISS. Accuchecks ACHS #ESRD: on HD. On dialysis Saturdays. On torsemide. Hold torsemide due to hypotension #History of heart block: s/p pacemaker. #HFpEF: on intake and output. Fluid restriction to 1500cc daily. 01/28/2025: Hopefully blood can be transfused during dialysis and the fluid can beremoved otherwise we will need to do diuretic DVT: Eliquis Allergies/Procedures Done in Hospital Allergies pioglitazone (From Actos) Allergy (Verified 11/22/24 08:49) fatigue simvastatin (From Zocor) Allergy (Verified 11/22/24 08:49) myalgia sitagliptin (From Januvia) Allergy (Verified 11/22/24 08:49) unknown Type of Care/Length of Stay Estimated LOS: Convalescent Care Less Than 30 days Type of Care Needed: Skilled Rehab Potential: Fair Prognosis: Fair Additional Orders/Day of Discharge Additional Orders: radha lift. transfers as tolerated. change dressing pod 4/5 . leave steris on 2 weeks. Day of Discharge: 01/29/25 Dietary and Speech Recommendations Dietitian Recommendations/Changes: As medically able, rec MEGAN to Renal general /Consistent CHO diet Discharge Plan Admission Admit Date/Time: 01/25/25 17:56 Attending Provider: Jaswant Montgomery Primary Care Provider: Nando Wiggins Consulting Providers: Hakan Gunter; Jayla Osuna; Manuel Alva; Kimberly Orozco Discharge Orders/Prescriptions Prescriptions: New oxycodone 5 mg Tablet 5 mg PO Q4H PRN PRN (Reason: prn pain 4-10) 3 Days Qty: 10 0RF sennosides-docusate sodium [Stimulant Laxative Plus] 8.6-50 mg Tablet 2 tab PO BID Qty: 0 0RF Continued torsemide 100 mg tablet 100 mg PO MOWEFR Patient Comments: on non-dialysis days cholecalciferol (vitamin D3) 125 mcg (5,000 unit) capsule 125 mcg PO DAILY Sore Throat (benzocaine-menth) 15-3.6 mg Lozenge 2 mariaa mucous membrane Q2H PRN PRN (Reason: sore throat) Qty: 0 0RF acetaminophen 500 mg capsule 1,000 mg PO Q8H PRN PRN (Reason: fever or pain) B complex-vitamin C-folic acid 400 mcg tablet 1 tab PO DAILY Trulicity 0.75 mg/0.5 mL pen injector 1.5 mg subcut .Qt Rx Instructions: Once a morning on Tuesday calcium acetate(phosphat bind) 667 mg capsule 667 mg PO TID Rx Instructions: with meals insulin glargine 100 unit/mL (3 mL) insulin pen 14 unit SC DAILY Eliquis 2.5 mg tablet 2.5 mg PO BID Qty: 180 3RF Held aspirin [Adult Aspirin Regimen] 81 mg tablet,delayed release (DR/EC) 81 mg PO DAILY Hold Instructions: Resume on 02/01/25. Discontinued sennosides-docusate sodium [Stimulant Laxative Plus] 8.6-50 mg Tablet 1 tab-cap PO BID PRN PRN (Reason: Constipation) Referrals / Follow Up: Nando Wiggins MD [Primary Care Provider] - Hakan Gunter MD [Med Staff - Active Staff] - Within 2 Weeks Disposition Disposition (needs filled in before D/C Order can be placed): Longterm Facility 01/29/25 1002 <Electronically signed by Jaswant Montgomery MD> Cosigner Signature (if applicable): CC: Dr. Nando Wiggins MD; Dr. Manuel Alva MD; Dr. Kimberly Orozco MD; Dr. Jayla Osuna MD; Dr. Hakan Gunter MD ~ [facility] Work Phone: 1(163) 799-709809-09-2025 [facility]09-08-2025 Progress note Author Jaswant Montgomery [facility] Note Date/Time January 28, 2025 10:49am [facility] Medical Records Department [address] [place] [address] Progress Note - Hospitalist 01/28/25 1045 MR#: [id number] Acct: [id number] Name: PERLA THOMPSON Rep #:[id number] : 1935 89 From: Jaswant pablo MD PCP: Dr. Nando Wiggins MD Status:A DM IN Location: MS3 EW903-4 Subjective Subjective Doing well, denies any pain. Though he states that he then have surgery when hehas had a right hip fracture repaired on 01/26/2025 a little bit confused but thisappears to be his baseline Objective Data Objective Data Vital Signs: Vital Signs Temp Pulse Resp BP Pulse Ox O2 Del Method O2 Flow Rate 97.6 F L 67 16 132/56 H 93 Room Air 3 01/28/25 10:19 01/28/25 10:30 01/28/25 10:19 01/28/25 10:30 01/28/25 10:19 01/28/25 10:19 01/27/25 07:29 Oxygen Flow Rate (L/min) 3 Oxygen Delivery Method Room Air Weight: 214 lb 8.156 oz Body Mass Index (BMI) 30.7 Intake & Output: Intake and Output for Last 24 Hours 01/27/25 01/28/25 01/29/25 03:59 03:59 03:59 Intake Total 976.25 / 976.25 240 / 240 Output Total 1795 / 1795 0 / 0 Balance -1795 / -1795 976.25 / 976.25 230 / 230 Lab / Micro Data 01/28/25 07:06 01/28/25 07:06 Labs: Laboratory Results - last 24 hr 01/25/25 16:35: Crossmatch See Detail 01/27/25 11:50: POC Glucose 156 H 01/27/25 16:33: POC Glucose 159 H 01/27/25 21:46: POC Glucose 217 H 01/28/25 05:30: POC Glucose 148 H 01/28/25 07:06: WBC 9.0, RBC 2.34 L, Hgb 7.3 L, Hct 22.4 L, MCV 95.7 H, MCH 31.2, MCHC 32.6, RDW Std Deviation 53.7 H, RDW Coeff of Frances 15.4 H, Plt Count 135 L, MPV 11.4, Immature Gran % (Auto) 0.600, Neut % (Auto) 69.4, Lymph % (Auto) 14.0 L, [place] % (Auto) 13.3 H, Eos % (Auto) 2.1, Baso % (Auto) 0.6, Absolute Neuts (auto) 6.2, Absolute Lymphs (auto) 1.26, Nucleated RBC % 0, Sodium 130 L, Potassium 5.5 H, Chloride 93 L, Carbon Dioxide 21.9, Anion Gap 15, BUN 58 H, Creatinine 5.58 H, Estim Creat Clear Calc 10.91 L, Est GFR (MDRD) Non-Af 9 L, BUN/Creatinine Ratio 10.4, Glucose 158 H, Calcium 8.2 Physical Exam Narrative General: Alert, Oriented x3, Cooperative, No apparent distress HEENT: Atraumatic, PERRLA, EOMI, Normocephalic Oral: Moist Mucosa Neck: Supple, No JVD Lungs: Diminished, Normal air movement, No rhonchi, No wheeze, No rales Cardiovascular: Regular rate, Regular Rhythm, Normal S1, Normal S2, No murmurs Abdomen: Soft, Non Tender, Non-Distended, No Hepato-splenomegaly Extremities: No edema, Capillary Refill Less than 3 Seconds Skin: Right hip dressing CDI Musculoskeletal: Right BKA Neurological: No focal neurological deficits, Motor Exam 5/5 strength throughout, Sensory exam intact to light touch and pain Psych/Mental Status: Normal Affect, Appropriate Assessment & Plan Assessment/Plan (1) Fall: (2) Closed right hip fracture: PLAN: Plan #Right intertrochanteric fracture due to mechanical fall with postoperative blood loss anemia * right hip xray showed right intertrochanteric comminuted fracture * orthopedics on board. * tody is POD 1 for right hip IM nailing * PT/OT On board * PO aspirin and eliquis on hold. 01/28/2025: Will transfuse 2 units today given his cardiac history. He is down to7.3 he was 10 on admission hopefully can give blood with dialysis today. He hadsome hypotension was started on midodrine 10 mg p.o. 3 times daily, his hypotension is likely related to his blood loss. His Eliquis has been resumed #History of afib: on eliquis, which is on hold. Resume when ok with orthopedics 01/28/2025: Resumed Eliquis #History of PAD: s/p right BKA. aspirin on hold. Resume as soon as ok with orthopedics #Type 2 diabetes mellitus: on ISS. Accuchecks ACHS #ESRD: on HD. On dialysis Saturdays. On torsemide. Hold torsemide due to hypotension #History of heart block: s/p pacemaker. #HFpEF: on intake and output. Fluid restriction to 1500cc daily. 01/28/2025: Hopefully blood can be transfused during dialysis and the fluid can beremoved otherwise we will need to do diuretic DVT: Eliquis Charges/Coding Visit Charges Inpatient E&M: 19582 Subs Hosp L2 01/28/25 1049 <Electronically signed by Jaswant Montgomery MD> Cosigner Signature (if applicable): CC: ~ Signed [facility] Work Phone: 1(735) 349-352809-07-2025 Progress note Author Kimberly Orozco [facility] Note Date/Time January 27, 2025 3:23pm [facility] Medical Records Department [address] [place] [id number] Progress Note 01/27/25 1210 MR#: [id number] Acct: [id number] Name: PERLA THOMPSON Rep #:[id number] : 1935 89 From: Kimberly Orozco MD PCP: Dr. Nando Wiggins MD Status:A DM IN Location: MS3 ES062-7 Subjective Subjective Patient seen and examined. Is postop day 1 for right hip replacement. His blood pressure has been low and was 93/48 today. He was noted to have decreasedurine output overnight also though usually makes very little urine. He was started on IVF overnight. Objective Data Objective Data Vital Signs: Vital Signs Temp Pulse Resp BP Pulse Ox O2 Del Method O2 Flow Rate 97.8 F 72 16 93/48 L 96 Room Air 3 01/27/25 07:53 01/27/25 07:53 01/27/25 07:53 01/27/25 07:53 01/27/25 07:53 01/27/25 07:53 01/27/25 07:29 Oxygen Flow Rate (L/min) 3 Oxygen Delivery Method Room Air Weight: 212 lb 8.41 oz Body Mass Index (BMI) 30.4 Intake & Output: Intake and Output for Last 24 Hours 01/25/25 01/26/25 01/27/25 23:59 23:59 23:59 Intake Total 0 / 200 200 / 200 250 / 250 Output Total 1795 / 1795 0 / 0 Balance 0 / 200 -1595 / -1595 250 / 250 Lab / Micro Data 01/27/25 04:22 01/27/25 04:22 Labs: Laboratory Results - last 24 hr 01/26/25 11:59: POC Glucose 130 H 01/26/25 14:40: Sodium 136, Potassium 4.2, Chloride 99, Carbon Dioxide 26.1, Anion Gap 11, BUN 33 H, Creatinine 3.63 H, Estim Creat Clear Calc 16.71 L, Est GFR (MDRD) Non-Af 16 L, BUN/Creatinine Ratio 9.2 L, Glucose 106 H, Calcium 9.0 01/26/25 18:49: POC Glucose 130 H 01/26/25 20:35: POC Glucose 138 H 01/27/25 04:22: WBC 13.0 H, RBC 2.76 L, Hgb 8.5 L, Hct 27.0 L, MCV 97.8 H, MCH 30.8, MCHC 31.5 L, RDW Std Deviation 55.6 H, RDW Coeff of Frances 15.7 H, Plt Count 144 L, MPV 11.8, Immature Gran % (Auto) 0.600, Neut % (Auto) 81.2 H, Lymph % (Auto) 7.9 L, [place] % (Auto) 9.5, Eos % (Auto) 0.3, Baso % (Auto) 0.5, Absolute Neuts (auto) 10.6 H, Absolute Lymphs (auto) 1.03, Nucleated RBC % 0, Sodium 134,Potassium 5.2 H, Chloride 97 L, Carbon Dioxide 23.2, Anion Gap 15, BUN 41 H, Creatinine 4.35 H, Estim Creat Clear Calc 13.94 L, Est GFR (MDRD) Non-Af 12 L, BUN/Creatinine Ratio 9.4 L, Glucose 144 H, Calcium 8.7 01/27/25 04:49: POC Glucose 151 H Radiography Diagnostic Testing: Radiology Impression Femur X-Ray 01/26/25 15:30 IMPRESSION: Adequate appearing postoperative change of the right proximal femur. Correlation with routine full [id number] radiographs as clinically appropriate for more complete assessment. Reading Location: [facility] Physical Exam Const alert, oriented x3 and no apparent distress Constitutional Narrative: frail General Appearance: cooperative HEENT normocephalic, head/scalp atraumatic, moist oral mucous membranes and oropharynxnormal Eyes PERRL Neck supple Lymph Lymphatic: no lymphedema noted Resp Resp Narrative: diminished breath sounds bibasally, no wheezes or crackles. On room air. Cardio regular rate, regular rhythm, S1 normal heart sound, S2 normal heart sound and no murmurs GI normal to inspection, nondistended, normoactive bowel sounds, soft to palpation and non-tender Extremity normal capillary refill and no clubbing, cyanosis or edema Extremity Narrative: intact dressing over right hip. Skin General Skin Exam: no breakdown Neuro CN's II-XII intact bilaterally Motor Exam: general weakness Psych thought process normal and cooperative Appearance: appropriate Assessment & Plan Assessment/Plan (1) Fall: (2) Closed right hip fracture: PLAN: Plan #Right intertrochanteric fracture due to mechanical fall * right hip xray showed right intertrochanteric comminuted fracture * orthopedics on board. * tody is POD 1 for right hip IM nailing * PT/OT On board * PO aspirin and eliquis on hold. * #History of afib: on eliquis, which is on hold. Resume when ok with orthopedics #Hypotension * Patient noted to be hypotensive postop. Blood pressure down in the 90s. He was started on IV fluid 75 cc/h overnight. He also received a dose of midodrine in PACU * Was started on midodrine 10 mg 3 times daily. This is because cannot be aggressive with IV fluid hydration in light of his ESRD on hemodialysis * Hold any BP meds #History of PAD: s/p right BKA. aspirin on hold. Resume as soon as ok with orthopedics #Type 2 diabetes mellitus: on ISS. Accuchecks ACHS #ESRD: on HD. On dialysis Saturdays. On torsemide. Hold torsemide due to hypotension #History of heart block: s/p pacemaker. #HFpEF: on intake and output. Fluid restriction to 1500cc daily. DVT prophylaxis: SCDs.resume eliquis Charges/Coding Visit Charges Inpatient E&M: 71874 Subs Hosp L2 01/27/25 1523 <Electronically signed by Kimberly Orozco MD> Kimberly Orozco MD Cosigner Signature (if applicable): CC: ~ Signed [facility] Work Phone: 1(527) 150-844009-07-2025 Progress note Author Hakan Gunter [facility] Note Date/Time January 27, 2025 11:27[facility] Medical Records Department [address] [place] [address] Progress Note - Orthopedic 01/27/25 1126 MR#: [id number] Acct: [id number] Name: PERLA THOMPSON Breanne Rep #:[id number] : 1935 89 From: Hakan Gunter MD PCP: Dr. Nando Wiggins MD Status:A DM IN Location: [place] [address]-1 Subjective Subjective POD 1 doing well. mild buttock discomfort. sitting upright. no concerns. Objective Data Objective Data Vital Signs: Vital Signs Temp Pulse Resp BP Pulse Ox O2 Del Method O2 Flow Rate 97.8 F 72 16 93/48 L 96 Room Air 3 01/27/25 07:53 01/27/25 07:53 01/27/25 07:53 01/27/25 07:53 01/27/25 07:53 01/27/25 07:53 01/27/25 07:29 Oxygen Flow Rate (L/min) 3 Oxygen Delivery Method Room Air Weight: 212 lb 8.41 oz Body Mass Index (BMI) 30.4 Intake & Output: Intake and Output for Last 24 Hours 01/25/25 01/26/25 01/27/25 23:59 23:59 23:59 Intake Total 0 / 200 200 / 200 250 / 250 Output Total 1795 / 1795 0 / 0 Balance 0 / 200 -1595 / -1595 250 / 250 Lab / Micro Data 01/27/25 04:22 01/27/25 04:22 Labs: Laboratory Results - last 24 hr 01/26/25 11:59: POC Glucose 130 H 01/26/25 14:40: Sodium 136, Potassium 4.2, Chloride 99, Carbon Dioxide 26.1, Anion Gap 11, BUN 33 H, Creatinine 3.63 H, Estim Creat Clear Calc 16.71 L, Est GFR (MDRD) Non-Af 16 L, BUN/Creatinine Ratio 9.2 L, Glucose 106 H, Calcium 9.0 01/26/25 18:49: POC Glucose 130 H 01/26/25 20:35: POC Glucose 138 H 01/27/25 04:22: WBC 13.0 H, RBC 2.76 L, Hgb 8.5 L, Hct 27.0 L, MCV 97.8 H, MCH 30.8, MCHC 31.5 L, RDW Std Deviation 55.6 H, RDW Coeff of Frances 15.7 H, Plt Count 144 L, MPV 11.8, Immature Gran % (Auto) 0.600, Neut % (Auto) 81.2 H, Lymph % (Auto) 7.9 L, [place] % (Auto) 9.5, Eos % (Auto) 0.3, Baso % (Auto) 0.5, Absolute Neuts (auto) 10.6 H, Absolute Lymphs (auto) 1.03, Nucleated RBC % 0, Sodium 134,Potassium 5.2 H, Chloride 97 L, Carbon Dioxide 23.2, Anion Gap 15, BUN 41 H, Creatinine 4.35 H, Estim Creat Clear Calc 13.94 L, Est GFR (MDRD) Non-Af 12 L, BUN/Creatinine Ratio 9.4 L, Glucose 144 H, Calcium 8.7 01/27/25 04:49: POC Glucose 151 H Radiography Diagnostic Testing: Radiology Impression Femur X-Ray 01/26/25 15:30 IMPRESSION: Adequate appearing postoperative change of the right proximal femur. Correlation with routine full [id number] radiographs as clinically appropriate for more complete assessment. Reading Location: [facility] Physical Exam Const alert, no apparent distress and well nourished General Appearance: cooperative Extremity normal capillary refill Extremity Narrative: stump looks normal, drsg dry intact, thigh soft, no strike through. Assessment & Plan Assessment/Plan (1) Closed right hip fracture: PLAN: POD 1 right hip ORIF. doing well. radha lift. transfers as tolerated. change dressing pod 4/5 . leave steris on 2 weeks. FU 2 weeks in office. 01/27/25 1127 <Electronically signed by Hakan Gunter MD> Cosigner Signature (if applicable): CC: ~ Signed [facility] Work Phone: [phone]) 127-676309-07-2025 Progress note Author [facility] Note Date/Time January 27, 2025 6:42am [facility] Medical Records Department [address] [place] [address] Progress Note - Hospitalist 01/27/25 0641 MR#: [id number] Acct: [id number] Name: PERLA THOMPSON Rep #:[id number] : 1935 89 From: Nazanin Noyola MD PCP: Dr. Nando Wiggins MD Status:A DM IN Location: [place] [address] Hospitalist Note Patient with decreased UOP, will administer low cc/hr volume bolus and reassess. 01/27/25 0642 <Electronically signed by Nazanin Noyola MD> Cosigner Signature (if applicable): CC: ~ Signed [facility] Work Phone: [phone]) 707-792409-06-2025 Consult note Author Izt [facility] Note Date/Time January 26, 2025 4:47pm [facility] Medical Records Department [address] [place] [address] Anesthesia Postop Eval II 01/26/25 1647 MR#: [id number] Acct: [id number] Name: PERLA THOMPSON Rep #:[id number] : 1935 89 From: Itz Mahan MD PCP: Dr. Nando Wiggins MD Status:A DM IN Y Race: C Location: [place] [id number] - Anesthesia Postop Eval I Sum Postop Eval Completion status Anesthesia document: Postop Eval 1 completed: Yes Anesthesia Postop Eval I Summary Anesthesia Postop Eval I Summary: Anesthesia Postop Eval I: Assessment Summary Airway patent Yes 01/26/25 16:46 [email or web address] Spontaneous unlabored Yes 01/26/25 16:46 respirations Mental status Awake 01/26/25 16:46 nausea No 01/26/25 16:46 Vomiting No 01/26/25 16:46 Anesthesia Postop Eval I: Fluid Summary Crystalloid volume administer 300 01/26/25 16:46 (ml) Colloids volume administered ( ml) Blood Product volume administered (ml) Total IV fluid infused 300 01/26/25 16:46 Anesthesia Postop Eval I: Summary Notes Anesthesia Complication No 01/26/25 16:46 Anesthesia Complication Comment: Post-operative progress note Anesthesia: Postop Eval II Evaluation Mental status: Awake Pain Level: 3 nausea: No Vomiting: No 01/26/257 <Electronically signed by Itz Mahan MD > Date _ Itz Mahan MD Cosigner Signature: Date CC: ~ Signed [facility] Work Phone: [phone] Consult note Author Itz [facility] Note Date/Time January 26, 2025 4:46pm [facility] Medical Records Department [address] [place] [address] Anesthesia Postop Eval I 01/26/25 1645 MR#: [id number] Acct: [id number] Name: PERLA THOMPSON Breanne Rep #:[id number] : 1935 89 From: Itz Mahan MD PCP: Dr. Nando Wiggins MD Status:A DM IN Y Race: C Location: [place] [address] Anesthesia: Postop Eval I Current Vital Signs Temperature: 97.7 F Pulse Rate: 70 Blood Pressure: 111/49 Respiratory Rate: 14 Pulse Ox: 97 Oxygen Delivery Method: Nasal Cannula Oxygen Flow Rate (L/min): 2 Assessment Airway patent: Yes Spontaneous unlabored respirations: Yes Mental status: Awake nausea: No Vomiting: No Anesthesia Complication: No Fluid Hydration Crystalloid volume administer (ml): 300 Total IV fluid infused: 300 Progress Note Anesthesia document: Postop Eval 1 completed: Yes 01/26/25 1646 <Electronically signed by Itz Mahan MD > Date _ Itz Mahan MD Cosigner Signature: Date CC: ~ Signed [facility] Work Phone: [phone] 612-309409-06-2025 Progress note Author Kimberly [facility] Note Date/Time January 26, 2025 3:56pm [facility] Medical Records Department [address] [place] [address] Progress Note 01/26/25 1103 MR#: [id number] Acct: [id number] Name: PERLA THOMPSON Rep #:[id number] : 1935 89 From: Kimberly Orozco MD PCP: Dr. Nando Wiggins MD Status:A DM IN Location: [place] [address] Subjective Subjective Patient seen and examined with his nurse by his bedside. He was admitted with a complaint of mechanical fall and resultant right hip fracture. He admits to painin the hip, rating it at 10/10. Vitals are stable. He is on room air. Objective Data Objective Data Vital Signs: Vital Signs Temp Pulse Resp BP Pulse Ox O2 Del Method O2 Flow Rate 97.7 F L 60 13 111/57 L 96 Room Air 3 01/26/25 10:10 01/26/25 10:45 01/26/25 10:10 01/26/25 10:45 01/26/25 10:10 01/26/25 10:10 01/26/25 09:53 Oxygen Flow Rate (L/min) 3 Oxygen Delivery Method Room Air Weight: 217 lb 6.012 oz Body Mass Index (BMI) 31.1 Intake & Output: Intake and Output for Last 24 Hours 01/24/25 01/25/25 01/26/25 23:59 23:59 23:59 Intake Total 0 / 200 200 / 200 Output Total Balance 0 / 200 175 / 175 Lab / Micro Data 01/26/25 06:28 01/26/25 06:28 Labs: Laboratory Results - last 24 hr [...] (Auto) 68.9, Lymph % (Auto) 18.0 L, [place] % (Auto) 9.6, Eos % (Auto) 2.4, Baso % (Auto) 0.7, Absolute Neuts (auto) 4.7, Absolute Lymphs (auto) 1.22, Nucleated RBC % 0, Blood Type A POSITIVE, Antibody Screen NEGATIVE 01/25/25 21:17: POC Glucose 179 H 01/26/25 06:28: WBC 10.3, RBC 2.95 L, Hgb 9.1 L, Hct 28.0 L, MCV 94.9 H, MCH 30.8, MCHC 32.5, RDW Std Deviation 52.7 H, RDW Coeff of Frances 15.3 H, Plt Count 163, MPV 11.9, Immature Gran % (Auto) 0.500, Neut % (Auto) 71.1 H, Lymph % (Auto) 15.9 L, [place] % (Auto) 10.8 H, Eos % (Auto) 1.1, Baso % (Auto) 0.6, Absolute Neuts (auto) 7.3, Absolute Lymphs (auto) 1.64, Nucleated RBC % 0, Sodium 134, Potassium 5.0, Chloride 95 L, Carbon Dioxide 25.7, Anion Gap 14, BUN56 H, Creatinine 5.65 H, Estim Creat Clear Calc 10.84 L, Est GFR (MDRD) Non-Af 9L, BUN/Creatinine Ratio 9.9 L, Glucose 150 H, Calcium 8.9 01/26/25 06:29: POC Glucose 153 H Radiography Diagnostic Testing: Radiology Impression Hip/Pelvis X-Ray 01/25/25 15:39 IMPRESSION: Comminuted impacted right intertrochanteric fracture. Reading Location: [facility] Chest X-Ray 01/25/25 15:57 IMPRESSION: Low lung volumes. Congestion. Reading Location: [facility] Knee X-Ray 01/25/25 18:05 IMPRESSION: Surgical changes as above. No acute abnormality. Multilevel degenerative disc disease. Reading Location: [facility] Physical Exam Const alert, oriented x3 and no apparent distress Constitutional Narrative: frail General Appearance: cooperative HEENT normocephalic, head/scalp atraumatic, moist oral mucous membranes and oropharynxnormal Eyes PERRL Neck supple Lymph Lymphatic: no lymphedema noted Resp Resp Narrative: diminished breath sounds bibasally, no wheezes or crackles. On room air. Cardio regular rate, regular rhythm, S1 normal heart sound, S2 normal heart sound and no murmurs GI normal to inspection, nondistended, normoactive bowel sounds, soft to palpation and non-tender Extremity normal capillary refill and no clubbing, cyanosis or edema Extremity Narrative: RLE shortened, externally rotated. Skin General Skin Exam: no breakdown Neuro CN's II-XII intact bilaterally Motor Exam: general weakness Psych thought process normal and cooperative Appearance: appropriate Assessment & Plan Assessment/Plan (1) Fall: (2) Closed right hip fracture: PLAN: Plan #Right intertrochanteric fracture due to mechanical fall * right hip xarey showed right intertrochanteric comminuted fracture * orthopedics on board. * for surgery today. * PT/OT On board * PO aspirin and eliquis on hold. * #History of afib: on eliquis, which is on board. #History of PAD: s/p right BKA. aspirin on hold. Resume as soon as ok with orthopedics #Type 2 diabetes mellitus: on ISS. Accuchecks ACHS #ESRD: on HD. On dialysis Saturdays. On torsemide. #History of heart block: s/p pacemaker. #HFpEF: on intake and output. Fluid restriction to 1500cc daily. DVT prophylaxis: SCDs. Resume anticoagulation after surgery once ok with orthopedic surgery. Charges/Coding Visit Charges Inpatient E&M: 21947 Subs Hosp L2 01/26/25 1556 <Electronically signed by Kimberly Orozco MD> Kimberly Orozco MD Cosigner Signature (if applicable): CC: ~ Signed [facility] Work Phone: [phone]) [phone] Radiology Diagnostic study [facility]09-06-2025 Procedure [facility]09-06-2025 Consult note Author Itz Mahan [facility] Note Date/Time January 26, 2025 8:47am [facility] [facility] Medical Records Department [address] [place] [address] Pre-Anesthesia Evaluation 01/26/25 0846 MR#: [id number] Acct: [id number] Name: PERLA THOMPSON Breanne Rep #:[id number] : 1935 89 From: Itz Mahan MD PCP: Dr. Nando Wiggins MD Status:A DM IN Y Race: C Location: [place] [id number] ASA Classification* ASA Classification ASA Classification: 4 and E Assessment & Plan Anesthesia* Anesthesia Assessment Anesthesia Assessment: Discussed sedation and/or anesthesia options, risks, benefits, and alternatives with patient/parents/legal guardian/POA. Questions invited. The patient/parents/legal guardian/POA seems to understand and agrees to proceedwith anesthesia plan. Reviewed the physical assessment, medical history, allergy history and patient home medications list prior to surgery/procedure/anesthetic and documented any changes. Performed airway and anesthesia risk assessments. Anesthesia Type Anesthesia Type: General Anesthesia Focused Assessment* Temperature: 97.8 F Pulse Rate: 65 Blood Pressure: 137/64 Respiratory Rate: 17 Pulse Ox: 98 Oxygen Flow Rate (L/min): 3 Airway Assessment Mouth opens: >3 cm Mallampati Score: II Labs Anesthesia Preop lab: CBC WBC 10.3 K/mm3 (4.4-11.0) 01/26/25 06:01/26/25 RBC 2.95 M/mm3 (4.6-6.2) L 01/26/25 06:01/26/25 Hgb 9.1 g/dL (13.0-16.5) L 01/26/25 06:01/26/25 Hct 28.0 % (40-54) L 01/26/25 06:01/26/25 Plt Count 163 K/mm3 (150-450) 01/26/25 06:01/26/25 CHEMISTRY Potassium 5.0 mmol/L (3.3-5.1) 01/26/25 06:28 01/26/25 Sodium 134 mmol/L (133-145) 01/26/25 06:28 01/26/25 Magnesium 2.6 mg/dL (1.5-2.2) H 11/22/24 08:47 11/22/24 BUN 56 mg/dL (4-19) H 01/26/25 06:01/26/25 Creatinine 5.65 mg/dL (0.70-1.20) H 01/26/25 06: Glucose 150 mg/dL (70-99) H 01/26/25 06:28 01/26/25 POC Glucose 153 mg/dL (74-106) H 01/26/25 06:29 01/26/25 TSH 1.080 uIU/mL (0.358-3.740) 05/15/24 05:05 04/23 09/13 COAG PT 16.5 SECONDS (11.7-14.9) H 11/22/24 08:47 0708/14 Pre-Assessment Diagnosis/Proposed Procedure Planned Operative Procedure(s): Gamma Nailing Right Hip Fracture Anesthesia History Anesthesia History - in store marketer: Anesthesia History - in store marketer Hx Hospitalization Yes 09/24/24 11:04 Any Problems With Anesthesia Yes: nausea 01/25/25 20:21 Cholinesterase deficiency No 01/25/25 20:21 You/Your Family Experience No 01/25/25 20:21 fever (hyperthermia) with Relationship Recent Exposure to Contagious No 01/25/25 20:21 Disease Does patient have nerve No 01/25/25 20:21 stimulator Patient instructed to have No 01/25/25 20:21 device shut off --Does patient have Pacemaker or ICD? When Was Last Pacemaker Check QUESTION #4 FULL TEXT: You/Your Family Experience fever (hyperthermia) with Anesthesia Last Oral Intake Last Oral intake: Last Oral Intake NPO since Meds taken in AM with sips of water? Meds patient instructed to take am of surgery PONV PONV - in store marketer: PONV - in store marketer Female HX of Motion Sickness HX of N/V After Surgery Non-Smoker Duration of Surgery greater than 60 minutes Number of Risk Factors PONV Score Height & Weight Height & Weight: Anesthesia: Height & Weight Height 5 ft 10 in 01/25/25 18:57 Weight: 98.6 kg 01/26/25 06:30 Body Mass Index (BMI) 31.1 01/26/25 06:30 Respiratory Assessment Respiratory Assessment - in store marketer: Respiratory Tract Infection Hx - in store marketer Hx Respiratory Tract Infection No 01/25/25 20:21 STOP Sleep Apnea STOP Sleep Apnea - in store marketer: STOP Sleep Apnea - in store marketer Hx Hypertension No 01/25/25 18:43 Hx Sleep Apnea No 01/25/25 18:43 CPAP No 01/25/25 18:43 BIPAP No 01/25/25 18:43 Do you snore loudly (louder No 01/25/25 18:43 than talking or can be heard Do you often feel tired/ No 01/25/25 18:43 fatigued/ sleepy during daytime? Has anyone observed you stop No 01/25/25 18:43 breathing during sleep? STOP Results Negative 01/25/25 18:43 QUESTION #5 FULL TEXT : Do you snore loudly (louder than talking or can be heard through closed doors)? 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 Specify any problems Hx of Preganancy in last 3 N/A 01/25/25 18:43 Months Nurse Filling Out Transfusion NMARTY 01/25/25 18:43 & Questions: Date: 01/25/25 01/25/25 18:43 Time: 18:55 01/25/25 18:43 Patient unable to answer at this time (ie. confused, unrespo /Reproduction History /Reproductive History - in store marketer: /Reproductive Hx- in store marketer Hx Now No 01/25/25 20:21 Gestational Age (in weeks): EDC: Hx Hx Para Hx Section SAB No 01/25/25 20:21 Active Medications Active Medications: Current Medications Generic Name Dose Route Start Last Admin Trade Name Freq PRN Reason Stop Dose Admin Acetaminophen 1,000 mg 01/25/25 22:00 01/26/25 06:32 Acetaminophen 500 Mg Tablet PO 1,000 mg Q8 CIRO Administration Albuterol Sulfate 2.5 mg 01/25/25 18:49 Albuterol 2.5 Mg/3 Ml Vial.Neb. INHALATION Q2H PRN PRN SOB &/OR WHEEZING Calcium Acetate 667 mg 01/26/25 08:00 Calcium Acetate 667 Mg Capsule PO TIDCM CIRO Cholecalciferol 125 mcg 01/26/25 10:00 Cholecalciferol (Vit D3) 125 Mcg Capsule (5,000 Units) PO DAILY CIRO Fentanyl Citrate 50 mcg 01/25/25 18:49 Fentanyl 100 Mcg/2 Ml Ampul IV Q2H PRN PRN Pain 6-10 Glucagon 1 mg 01/25/25 18:49 Glucagon 1 Mg/Ml Syringe IM X1 PRN HYPOGLYCEMIA Protocol Hemodialysis Solution 6 bag 01/26/25 07:45 Pureflow B 2k Dialysis Soln 1 Bag PF 01/26/25 19:33 UD CIRO Protocol Dextrose 250 mls @ 0 mls/hr 01/25/25 18:49 Dextrose 10%-Water IV .Q0M PRN HYPOGLYCEMIA Protocol As Directed Sodium Chloride 250 mls @ 15 mls/hr 01/25/25 19:36 IV .[id number] PRN Saline Flush Sodium Chloride 250 mls @ 15 mls/hr 01/25/25 19:36 IV .[id number] PRN Additional IVPB Infusion Insulin Human Lispro 0 unit 01/25/25 22:00 01/26/25 06:32 Insulin Lispro 100 Unit/Ml Insuln.Pen SC Not Given ACHS [facility] Protocol Melatonin 10 mg 01/25/25 18:49 Melatonin 10 Mg Tablet PO QHS PRN PRN INSOMNIA Ondansetron HCl 4 mg 01/25/25 18:49 Ondansetron 4 Mg/2 Ml Vial IV Q8H PRN PRN NAUSEA/VOMITING Oxycodone HCl 5 mg 01/25/25 18:49 01/26/25 02:16 Oxycodone 5 Mg Tablet PO 5 mg Q4H PRN PRN Administration prn pain 4-10 Senna/Docusate Sodium 2 tablet 01/25/25 22:00 01/25/25 21:13 Senna/Docusate Sodium 1 Tablet PO 2 tablet BID CIRO Administration Sodium Chloride 10 - 40 ml 01/25/25 19:36 0.9% Saline Lock 10 Ml Syringe IV UD PRN SALINE FLUSH Sodium Chloride 1,000 ml 01/26/25 07:30 0.9% Normal Saline 1,000 Ml Iv.Soln. OPERA.SITE 01/26/25 19:27 X1 CIRO Sodium Chloride 200 ml 01/26/25 07:27 0.9% Normal Saline 1,000 Ml Iv.Soln. IV 01/26/25 19:27 X1 PRN to maintain SBP >90mmHg during Dialysis Torsemide 100 mg 01/28/25 10:00 Torsemide 100 Mg Tablet PO [id number] 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 Wound, open, foot End stage renal disease MRSA (methicillin resistant staph aureus) culture positive Cutaneous abscess of right foot Diabetic infection of right foot Acute hyperkalemia Open wound Lives in intermediate Dietary restriction History of stress test History of echocardiogram Cardiology follow-up encounter History of atrial fibrillation Insulin dependent diabetes mellitus Other specified peripheral vascular diseases Type 2 diabetes mellitus with diabetic polyneuropathy Atherosclerosis of che[place] artery of extremity with ulceration ESRD (end [...] mcg PO DAILY SUPP LEMENT 07/13/24 08/28/24 H istory mcg (5,000 unit) capsule benzocaine 15 mg-menthol [...] repair History of appendectomy Social History housing: intermediate current occupational status: retired Smoking Status: Never smoker alcohol intake: never substance use type: does not use caffeine: Yes Type: coffee Number of servings: 1 what type of physical activity do you participate in: none seatbelt use: always do you feel safe at home: Yes Review of Systems (Anesthesia) ROS Narrative System reviewed and no additional complaints, except as documented. 01/26/25 0847 <Electronically signed by Itz Mahan MD > Date _ Itz Mahan MD Cosigner Signature: Date CC: ~ Signed [facility] Work Phone: [phone]) [phone] Discharge summary Author Beau Dunlap [facility] Note Date/Time January 25, 2025 9:34pm [facility] Medical Records Department [address] [place] [address] Emergency Department Summary 01/25/25 MR#: [id number] Acct: [id number] Name: PERLA THOMPSON Rep #:[id number] : 1935 89 From: Beau Dunlap MD PCP: Dr. Nando Wiggins MD Status:A DM IN [facility] History of Present Illness Chief Complaint: Lower Extremity Injury Narrative Narrative: 89-year-old male past medical history of diabetes, right BKA remotely, [facility]. History and physical is mildly limited secondary to memory problems. According to his relative, he usually leans forward out of the recliner. 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 He fell forward and onto his right hip and now has pain with palpation and movement of his right hip. He is a dialysis patient and receives dialysis every Tuesday, , and Tuesday. Additionally, he does take Eliquis for atrial fibrillation. He did not hit his head or lose consciousness,denies any neck pain, no other symptoms. See fentanyl per squad. 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 Wound, open, foot End stage renal disease MRSA (methicillin resistant staph aureus) culture positive Cutaneous abscess of right foot Diabetic infection of right foot Acute hyperkalemia Open wound Lives in intermediate Dietary restriction History of stress test History of echocardiogram Cardiology follow-up encounter History of atrial fibrillation Insulin dependent diabetes mellitus Other specified peripheral vascular diseases 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 No hitting of head, no loss of consciousness, no neck pain, denies other injuries. EXAM Physical Exam Narrative Exam Narrative: Afebrile. Vital signs noted. Nontoxic-appearing. Cardiovascular examination feels regular rate and rhythm. Clear to auscultation bilaterally anteriorly. Abdomen soft and nontender with positive bowel sounds, no guarding or rebound. Awake, alert, oriented to person, at baseline per relative. Diffuse tenderness to palpation right hip, positive pain with logrolling of right femur. No crepitance. Pelvis otherwise stable. Const Vital Signs: 01/25/25 15:27 01/25/25 17:00 Temperature 97.5 F L Temperature Source Oral Pulse Rate 63 90 Respiratory Rate 16 16 Blood Pressure 131/60 H 125/73 H Blood Pressure Mean 83 90 Pulse Ox 92 90 Oxygen Delivery Method Room Air Nasal Cannula MDM MDM MDM Narrative Medical decision making narrative: Differential diagnosis includes but not limited to fracture of right hip/proximal femur versus pubic ramus fracture versus hip contusion. His relative does state that he has a low tolerance for pain. He was given an additional 50 mcg of fentanyl and x-rays obtained of the right hip with pelvis and interpreted by myself independently. On my independent interpretation, he has an intertrochanteric fracture of the hip that is comminuted. I reviewed theradiology report which confirms my independent interpretation. On my independent interpretation of his chest x-ray preoperatively, there is vascular congestion but no consolidation. I reviewed the radiology report which confirmsmy independent interpretation as well. I ordered preoperative laboratories including CBC and BMP. On my review hemoglobin stable at 9.9, normal white count, platelet count normal at 164, chloride low at 97 with BUN of 47 and creatinine 5.11 consistent with his need for dialysis/end-stage renal disease, glucose 213 with a normal anion gap of 13. Blood type is a positive. I discussed the patient with Dr. Gunter with orthopedics who is agreeable for the patient to be admitted here to the hospitalist. I then discussed the patient with Dr. Jayla Osuna for admission. Patient is in stable condition. History & Record Review Discussion w/independent historian: Patient and Family Lab Data Attestation: I reviewed the patient's lab results. Labs: Laboratory Results - last 24 hr 01/25/25 01/25/25 15:28 16:35 WBC 6.8 RBC 3.16 L Hgb 9.9 L Hct 29.9 L MCV 94.6 H MCH 31.3 MCHC 33.1 RDW Std Deviation 54.0 H RDW Coeff of Frances 15.5 H Plt Count 164 MPV 10.6 Immature Gran % (Auto) 0.400 Neut % (Auto) 68.9 Lymph % (Auto) 18.0 L [place] % (Auto) 9.6 Eos % (Auto) 2.4 Baso % (Auto) 0.7 Absolute Neuts (auto) 4.7 Absolute Lymphs (auto) 1.22 Nucleated RBC % 0 Sodium 136 Potassium 4.4 Chloride 97 L Carbon Dioxide 27.0 Anion Gap 13 BUN 47 H Creatinine 5.11 H Estim Creat Clear Calc 12.02 L Est GFR (MDRD) Non-Af 10 L BUN/Creatinine Ratio 9.3 L Glucose 213 H Calcium 8.9 Blood Type A POSITIVE Antibody Screen NEGATIVE Radiography Chest X-Ray - ED: Read by ED Physician, Read by Radiologist and CHF X-Ray: Right Hip, Read by ED Physician and Fracture Diagnostic Testing: Clinical Impression(s) from Imaging Studies Hip/Pelvis X-Ray 01/25/25 15:39 IMPRESSION: Comminuted impacted right intertrochanteric fracture. Reading Location: [facility] Chest X-Ray 01/25/25 15:57 IMPRESSION: Low lung volumes. Congestion. Reading Location: [facility] Management Discussion w/another healthcare provider: Hospitalist (Dr. Osuna) and Slice Cutting Machine Operator (Dr. Gunter) Discharge Plan Dx/Rx/DC Orders Clinical Impression: Fall, Closed hip fracture, Current use of mcc anticoagulation, End stage renal disease Disposition Disposition: Acute Care Hospital [facility] Discharge Date/Time: 01/25/25 18:37 What to do if you have Problems For any increased pain, shortness of breath, bleeding, nausea or vomiting, chestpain, or any unexpected problems, contact your Primary Care Provider. Call [facility] ([phone]) or report to the closest Emergency Room. Call 911 if necessary. 01/25/252133 <Electronically signed by Beau Dunlap MD> Cosigner Signature (if applicable): CC: Dr. Nando Wiggins MD ~ Signed [facility] Work Phone: [phone]) 781-839509-05-2025 History and physical note Author Jayla Osuna [facility] Note Date/Time January 25, 2025 7:58pm [facility] Medical Records Department [address] [place] [address] H&P Exam - Hospitalist 01/25/25 1756 MR#: [id number] Acct: [id number] Name: PERLA THOMPSON Rep #:[id number] : 1935 89 From: Jayla Osuna MD PCP: Dr. Nando Wiggins MD Status:A DM IN Location: [facility] BM561-8 HPI - General General Date of Admission: 01/25/25 Date of Service: 01/25/25 Chief Complaint: Right leg pain HPI Narrative PRELA THOMPSON, is a 89-year-old male history of type 2 diabetes, right BKA, end- stage renal disease on hemodialysis, diabetes, PAD, history chronic heart failure with preserved ejection fraction who presented to [facility] ED 01/25/[facility]25 due to a fall. Reportedly he fell out of his recliner and onto his right hip and had significant pain. In the ED temp 97.5, heart rate 63, blood pressure 131/68, respiratory rate 16 pulse ox 92% on room air. CBC inthe ED white count of 6.8, hemoglobin 9.9, BMP with a BUN of 47 and a creatinine5.11, glucose 213, patient had hip and pelvis x-ray which showed comminuted impacted right intertrochanteric fracture. Ortho consulted and recommended hospitalist admit with Ortho consult. Patient evaluated with family members at bedside, patient denies any complaints other than his right leg hurting significantly, denying any cough or shortness of breath, notes his mouth is dry and wants something to drink. [facility] Medical History (Updated 01/25/25 @ 17:37 by Beau Dunlap MD) Abnormal electrocardiogram Acute hyperkalemia Atherosclerosis of che[place]huevi artery of extremity with ulceration Atherosclerosis of che[place]vi artery of right leg with gangrene Cancer Cardiology follow-up encounter Chronic diastolic (congestive) heart failure (04/18/20) Closed right hip fracture Cutaneous abscess of right foot Diabetes mellitus with diabetic polyneuropathy Diabetic infection of right foot Dialysis patient Dietary restriction Edema End stage renal disease ESRD (end stage renal disease) History of atrial fibrillation History of echocardiogram History of stress test HLD (hyperlipidemia) Hyperkalemia Insulin dependent diabetes mellitus Kidney disease Left bundle-branch block Lives in intermediate Loose, teeth 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 MRSA (methicillin resistant staph aureus) culture positive Neuropathic ulcer of right foot with fat layer exposed Non-smoker Open wound Other specified peripheral vascular diseases Paroxysmal atrial fibrillation Pre-op testing Presence of leadless cardiac pacemaker Sinus bradycardia Swelling of both lower extremities Syncope Type 2 diabetes mellitus Type 2 diabetes mellitus with diabetic polyneuropathy Type 2 diabetes mellitus with foot ulcer Wears glasses Wound, open, foot Home Medications ?Medication ?Instructions ?Recorded ?Last Taken [...] COPD (chronic obstructive pulmonary disease) Surgical History History of appendectomy History of arteriovenostomy for renal dialysis History of cataract extraction History of incision and drainage History of inguinal hernia repair History of ligation of vein Hx of amputation Hx of foot surgery Social History housing: intermediate current occupational status: retired Smoking Status: Never smoker alcohol intake: never substance use type: does not use caffeine: Yes Type: coffee Number of servings: 1 what type of physical activity do you participate in: none seatbelt use: always do you feel safe at home: Yes ROS ROS Narrative General: Denies fever/chills HENT: Denies headache, denies stuffy nose, denies sore throat, notes dry mouth EYES: Denies changes in vision Resp: Denies cough, denies shortness of breath Cardiac: Denies chest pain GI: Denies abdominal pain, denies changes in bowel, denies nausea/vomiting : Minimal urination with dialysis Extremity: Denies new swelling MSK: Significant right leg pain Neuro: Denies any numbness/tingling Heme: Denies any bleeding or bruising Skin: Denies rashes Psychiatric: Patient very painful Vital Signs Vital Signs Vital Signs: 01/25/25 15:27 01/25/25 17:00 Temperature 97.5 F L Temperature Source Oral Pulse Rate 63 90 Respiratory Rate 16 16 Blood Pressure 131/60 H 125/73 H Blood Pressure Mean 83 90 Pulse Ox 92 90 Oxygen Delivery Method Room Air Nasal Cannula Weight Weight: 99.1 kg Body Mass Index (BMI) 31.3 Physical Exam Narrative General: Alert, appears uncomfortable HEENT: normocephalic Eyes: Anicteric, normal conjunctiva, extraocular movements grossly intact Neck: Supple Respiratory: Slightly tachypneic, diminished bilaterally Cardiovascular: Regular rate GI: Soft, nontender, nondistended Extremities: No significant pitting edema Musculoskeletal: Right BKA, not moving extremity secondary to pain Neuro: No overt focal neurological deficits Skin: No rashes appreciated Psych: Patient irritable and painful Results Lab / Micro Data 01/25/25 16:35 01/25/25 [...] (Auto) 68.9, Lymph % (Auto) 18.0 L, [place] % (Auto) 9.6, Eos % (Auto) 2.4, Baso % (Auto) 0.7, Absolute Neuts (auto) 4.7, Absolute Lymphs (auto) 1.22, Nucleated RBC % 0 Imaging Radiology Impression Hip/Pelvis X-Ray 01/25/25 15:39 IMPRESSION: Comminuted impacted right intertrochanteric fracture. Reading Location: [facility] Chest X-Ray 01/25/25 15:57 IMPRESSION: Low lung volumes. Congestion. Reading Location: [facility] Assessment & Plan Assessment/Plan (1) Closed right hip fracture: PLAN: Plan # Right intertrochanteric fracture -Hip and pelvis x-ray which showed comminuted impacted right intertrochanteric fracture -Ortho consult -Hold blood thinners per Ortho recs -Eliquis and aspirin on hold -Supportive care -N.p.o. at midnight -Patient remains at high risk for surgical intervention given significant comorbidities including type 2 diabetes, end-stage renal disease on hemodialysis, chronic heart failure with preserved ejection fraction. Patient is above average surgical risk based on the NSQIP with higher than average risk of mortality and elevated risk of serious complications. Patient however has been optimized for surgical intervention. Risk involved in the procedure to be discussed by orthopedic surgery #Hx of afib -On Eliquis -Will hold given the above - Does not appear patient is on rate control # History of PAD -With previous right BKA - Holding Eliquis and aspirin as above - Resume as soon as patient is cleared to do so by surgery service #Type 2 diabetes mellitus -Glucose checks and sliding scale insulin - Will hold long-acting insulin for now pending surgical plan and p.o. intake can resume #ESRD on HD -Dialysis Tuesday, , Tuesday -Consult nephrology -Renal diet -Daily weights, I's and O's #PPM - Patient recently with heart block and had to be transferred for Micra pacemaker implant -Noted #Chronic heart failure with preserved ejection fraction -Daily weights -I's and O's -Fluid restriction -Continue patients home medications #DVT ppx: SCD to left lower extremity while patient's Eliquis held Jayla Osuna MD Charges/Coding Visit Charges Inpatient E&M: 41392 Init Hosp L2 01/25/251957 <Electronically signed by Jayla Osuna MD> Cosigner Signature (if applicable): CC: Dr. Nando Wiggins MD; Dr. Jayla Osuna MD~ Signed [facility] Work Phone: [phone]) 295-947409-05-2025 Consult note Author Hakan Gunter [facility] Note Date/Time January 25, 2025 6:10pm [facility] Medical Records Department [address] [place] [address] Consultation - Orthopedics 01/25/251804 MR#: [id number] Acct: [id number] Name: PERLA THOMPSON Rep #:[id number] : 1935 89 From: Hakan Gunter MD PCP: Dr. Nando Wiggins MD Status:A DM IN Location: MD3 CU707-9 HPI Consult Data Date of Consult: 01/25/25 HPI Narrative HPI Narrative: PERLA THOMPSON, is a 89 M who presents with a right hip fracture. Fell out of a chair in intermediate. does not ambulate for months now. uses a radha lift. his son and daughter are here at the bed side. on dialysis. has right below knee amp. 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 Wound, open, foot End stage renal disease MRSA (methicillin resistant staph aureus) culture positive Cutaneous abscess of right foot Diabetic infection of right foot Acute hyperkalemia Open wound Lives in intermediate Dietary restriction History of stress test History of echocardiogram Cardiology follow-up encounter History of atrial fibrillation Insulin dependent diabetes mellitus Other specified peripheral vascular diseases Type 2 diabetes mellitus with diabetic polyneuropathy Atherosclerosis of che[place]huevi artery of extremity with ulceration ESRD (end [...] repair History of appendectomy Social History housing: intermediate current occupational status: retired Smoking Status: Never [...] Extremity Narrative: closed, ER of the right LE, bka well healed stump, good size proximal [...] (Auto) 68.9, Lymph % (Auto) 18.0 L, [place] % (Auto) 9.6, Eos % (Auto) 2.4, Baso % (Auto) 0.7, Absolute Neuts (auto) 4.7, Absolute Lymphs (auto) 1.22, Nucleated RBC % 0 Imaging Radiology Impression Hip/Pelvis X-Ray 01/25/25 15:39 IMPRESSION: Comminuted impacted right intertrochanteric fracture. Reading Location: [facility] Chest X-Ray 01/25/25 15:57 IMPRESSION: Low lung volumes. Congestion. Reading Location: [facility] 2 part IT hip fracture. bones consistent [...] the surgery. For now MEGAN, NPO at [facility] in hopes of doing the procedure tomorrow. 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 Pros and cons risks and benefits were [...] with surgery,and signed the informed consent documentation. 01/25/250 <Electronically signed by Hakan Gunter MD> Cosigner Signature (if applicable): CC: Dr. Nando Wiggins MD~ Signed [facility] Work Phone: 1(972) 551-112809-05-2025 Consult note Author Hakan Gunter [facility] Note Date/Time January 25, 2025 4:46pm [facility] Medical Records Department [address] [place] [address] Consultation - Orthopedics 01/25/25 1644 MR#: [id number] Acct: [id number] Name: PERLA THOMPSON Rep #:[id number] : 1935 89 From: Hakan Gunter MD PCP: Dr. Nando Wiggins MD Status:R EG ER Location: ED HPI Consult Data Date of Consult: 01/25/25 HPI Narrative HPI Narrative: PERLA THOMPSON is a 89 M who presents with a right hip fracture, in the setting ofa prior below knee amp on that side. 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 Wound, open, foot End stage renal disease MRSA (methicillin resistant staph aureus) culture positive Cutaneous abscess of right foot Diabetic infection of right foot Acute hyperkalemia Open wound Lives in intermediate Dietary restriction History of stress test History of echocardiogram Cardiology follow-up encounter History of atrial fibrillation Insulin dependent diabetes mellitus Other specified peripheral vascular diseases Type 2 diabetes mellitus with diabetic polyneuropathy Atherosclerosis of che[place] artery of extremity with ulceration ESRD (end [...] repair History of appendectomy Social History housing: intermediate current occupational status: retired Smoking Status: Never [...] (Auto) 68.9, Lymph % (Auto) 18.0 L, [place] % (Auto) 9.6, Eos % (Auto) 2.4, Baso % (Auto) 0.7, Absolute Neuts (auto) 4.7, Absolute Lymphs (auto) 1.22, Nucleated RBC % 0 Imaging Radiology Impression Hip/Pelvis X-Ray 01/25/25 15:39 IMPRESSION: Comminuted impacted right intertrochanteric fracture. Reading Location: [facility] Chest X-Ray 01/25/25 15:57 IMPRESSION: Low lung volumes. Congestion. Reading Location: [facility] Assessment & Plan Assessment/Plan (1) Closed right [...] while nailing the fracture. MEGAN for now. 01/25/25 1646 <Electronically signed by Hakan Gunter MD> Cosigner Signature (if applicable): CC: Dr. Nando Wiggins MD~ Signed [facility] Work Phone: 1(418) 181-560909-05-2025 Radiology Diagnostic study [facility]09-05-2025 Radiology Diagnostic study [facility]09-05-2025 Radiology Diagnostic study [facility] 12-26-[facility] Evaluation note * Diagnosis Onset Date Resolution Status Admit Date 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 chronic December 9:34am Paroxysmal atrial fibrillation chron ic December 26, 2024 9:34am Presence of leadless cardiac pacemaker chronic December 26, 2024 9:34am Sinus bradycardia chronic December 26, 2024 9:34am Closed hip fracture acute Septe 2024 5:56pm Closed right hip fracture acute January 25, 2025 5:56pm Current use of mcc anticoagulation acute January 25, 2 025 5:56pm End stage renal disease acute S eptemb2024 5:56pm Fall acute January 25, 2025 5:56pm Anemia of chronic disease chronic January 25, 2025 5:56pm Closed hip fracture acute Septe [facility] 2024 9:54am [facility] Work Phone: 1([phone]) 468-410907-22-2025 Telephone encounter Note* Telephone Encounter - Ray Eagle TECHNOLOGIST - 12/11/2024 10:18 AM EDT Post Implant follow up call: Date: 12/11/2024 [...] Dept Phone 01/08/2025 10:30 AM DEVICE CLINIC [facility] [phone] Any scheduling issues:Yes, Spoke with patients daughter she stated if her dad could follow up locally she would call and cancel appointment with [facility]. Questions moving forward: No FATUMA WorrellOLOGIST [facility]07-22-2025 Miscellaneous Notes* Telephone Encounter - Ray Eagle TECHNOLOGIST - 12/11/2024 10:18 AM EDT Post Implant follow up call: Date: 12/11/2024 [...] Location Dept Phone 01/08/2025 10:30 AM DEVICE [facility] [phone] Any scheduling issues:Yes, Spoke with patients daughter she stated if her dad could follow up locally she would call and cancel appointment with [facility]. Questions moving forward: No FATUMA WorrellOLOGIST documented in this encounterFirelands Regional Medical Center07-08-2025 [facility]-07-2025 NoteC[facility]-07-2025 NoteC[facility]07-07-2025 NoteC[facility]07-06-2025 Note [facility]07-06-2025 NoteC[facility]07-05-2025 NoteC[facility]07-05-2025 NoteC[facility] 11-24-2024 NoteC[facility]07-04-2025 NoteC[facility]07-04-2025 NoteC[facility]07-04-2025 NoteC[facility]07-03-2025 Radiology Diagnostic study [facility]06-20-2025 Discharge summary Author Max Roberts [facility] Note Date/Time November 08, 2024 11:3 9pm [facility] Medical Records Department [address] [place] [address] Emergency Department Summary 11/08/24 MR#: [id number] Acct: [id number] Name: PERLA THOMPSON Rep #:[id number] : 1935 89 From: Max Ayers PCP: Dr. Nando Wiggins MD Status:R EG ER Location: ED HPI <KRISTOFER Taylor - Last Filed: 11/08/24 22:12> HPI - Fall History of Present Illness Chief Complaint: Fall Narrative Narrative: 89-year-old male with PMH of DM2, ESRD on HD, A-fib on Eliquis, right BKA presents after a fall at his intermediate. 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 Wound, open, foot End stage renal disease MRSA (methicillin resistant staph aureus) culture positive Cutaneous abscess of right foot Diabetic infection of right foot Acute hyperkalemia Open wound Lives in intermediate Dietary restriction History of stress test History of echocardiogram Cardiology follow-up encounter History of atrial fibrillation Insulin dependent diabetes mellitus Other specified peripheral vascular diseases Type 2 diabetes mellitus with diabetic polyneuropathy Atherosclerosis of [place] artery of extremity with ulceration ESRD (end [...] mL benzocaine 15 mg-menthol 3.6 mg 2 mairaa mucous membrane Q2H PRN PRN 07/20/24 Unknown [...] repair History of appendectomy Social History housing: intermediate current occupational status: retired Smoking Status: Never [...] 98 94 Oxygen Delivery Method Room Air [facility] <KRISTOFER Taylor - Last Filed: 11/08/24 22:12> [facility] Narrative Medical decision making narrative: History gathered [...] IMPRESSION: No acute intracranial abnormalities. Reading Location: [place] [address] Foot X-Ray 11/08/24 21:20 IMPRESSION: No acute fracture is appreciated. Other abnormalities as detailed above. Reading [facility] attending interpretation of left foot shows no acute fracture or dislocation. <Dr. Max Roberts DO - Last Filed: 11/08/24 23:39> [facility] Radiography Diagnostic Testing: Clinical Impression(s) from Imaging Studies Brain CT 11/08/24 19:51 IMPRESSION: No acute intracranial abnormalities. Reading Location: [place] [address] Foot X-Ray 11/08/24 21:20 IMPRESSION: No acute fracture is appreciated. Other abnormalities as detailed above. Reading [facility] Treatment and Re-Evaluation Narrative: Attending note: I have personally performed a face to face assessment of the patient and have reviewed the ARAMIS note. I personally made/approved the management plan and take responsibility for the patient management. I performeda substantive portion of the visit including all aspects of the following. My figueroa findings include: [facility] fall out of his recliner. Normally [...] Sore Throat (benzocaine-menth) 15-3.6 mg Lozenge 2 mairaa mucous membrane Q2H PRN PRN (Reason: sore throat) Qty: 0 0RF menthol-zinc oxide [Calmoseptine] 0.44-20.6 % Ointment 1 applic topical BID Qty: 0 0RF Protocol: *Topical Application Instructions APPLICATION INSTRUCTIONS: apply to buttocks insulin lispro [Humalog KwikPen Insulin] 100 unit/mL Insulin Pen See Protocol subcut [facility] Protocol: 3. Sliding Scale Insulin Med Dosing [...] please return to the ER. Print Language: Maltese Disposition Disposition: Home, Self Care What to do if you have Problems For any increased pain, shortness of breath, bleeding, nausea or vomiting, chestpain, or any unexpected problems, contact your Primary Care Provider. Call [facility] ([phone]) or report to the closest Emergency Room. Call 911 if necessary. 11/08/24 1872 <Electronically signed by Max Ayers> Cosigner Signature (if applicable): 06/2211 <Electronically signed by Xena MINER> CC: Dr. Nando Wiggins MD ~ Signed [facility] Work Phone: 1(174) 621-875706-19-2025 Radiology Diagnostic study [facility]06-19-2025 Radiology Diagnostic study [facility]05-14-2025 Evaluation note* Diagnosis Onset Date Resolution Status Admit Date Amputation of right lower extremity below knee acute October 03, 2 025 8:55am End stage renal disease acute M ay 2024 8:55am Amputation of right lower extremity below knee acute October 17 025 10:05am AV fistula acute October 17, [...] January 25, 2025 5:56pm Current use of oil heaterman anticoagulation acute January 25 025 5:56pm End stage renal disease acute S epte2024 5:56pm Fall acute January 25, 2025 5:56pm [facility] Work Phone: 1([phone]) 881-945405-14-2025 Evaluation note* Diagnosis Onset Date Resolution Status [...] 26, 2024 9:34am Closed hip fracture acute Septe mb2024 5:56pm Closed right hip fracture acute January 25, 2025 5:56pm Current use of mcc anticoagulation acute January 25 5:56pm End stage renal disease acute S eptember 2024 5:56pm Fall acute January 25, 2025 5:56pm Anemia of chronic disease chronic January 25, 2025 5:56pm [facility] Work Phone: 1(584) 291-876605-05-2025 Progress note Author Randal Damico [facility] Note Date/Time September 24, 2024 11:03a [facility] Medical Records Department [address] [place] [address] Progress Note - Surgery 09/24/24 1101 MR#: [id number] Acct: [id number] Name: PERLA THOMPSON Rep #:[id number] : 1935 89 From: Randal Damico MD PCP: Dr. Nando Wiggins MD Status:R EG RCR Location: Subjective Subjective Doing well. Here with son in law. No residual nerve pain or phantom limb pain inthe RLE s/p amputation 1 month ago. Objective Data Objective Data Vital Signs: Vital Signs Temp Pulse Resp BP 96.0 F L 44 L 16 121/40 H 09/24/24 10:09/24/24 10:09 09/24/24 10:09 09/24/24 10:09 Weight: 204 [...] encounter PLAN: Continue ABD for padding Continue Baggage Security Checker splint for knee extension and plan for stump forming with [employer] eventual prosthesis at likely 3 months Plan from vascular is to follow-up in 2 weeks for staple removal. Agree with plan. Patient is not having any residual limb pain or phantom limb pain. Follow-up asneeded. Charges/Coding Procedures Integumentary 111xxx-113xx: 24850 Global Visit 09/24/24 1103 <Electronically signed by Randal Damico MD> Cosigner Signature (if applicable): CC: ~ Signed [facility] Work Phone: 1(209) 733-315705-05-2025 Evaluation note* Diagnosis Onset Date Resolution Status [...] Sinus bradycardia chronic December 26, 2024 9:34am [facility] Work Phone: 1(223) 516-113204-11-2025 [facility]04-09-2025 Evaluation note* Diagnosis Onset Date Resolution Status Admit Date Amputation of right lower extremity below knee acute August 29, 2024 1:06pm End stage renal disease acute A pril 2024 1:06pm Anemia of chronic disease chronic August 29, 2024 1:06pm Atherosclerosis of che[place]huevi artery of right leg with gangrene inactive [...] Sinus bradycardia chronic December 26, 2024 9:34am [facility] [employer] [facility] Work Phone: 1(667) 454-258704-09-2025 [facility]03-31-2025 Evaluation note* Diagnosis Onset Date Resolution [...] chronic August 29, 2024 1:06pm 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 Work Phone: 1(809) 690-919802-28-2025 [facility]02-21-2025 Evaluation note* Diagnosis Onset Date Resolution Status Admit Date End stage renal disease acute F ebruary 2024 5:48pm MRSA bacteremia acute July 13, 2024 5:48pm Cellulitis of right foot resolved July 13, 2024 5:48pm Cellulitis of right lower limb resolved July 13, 025 5:48pm Diabetic infection of right foot [...] chronic August 29, 2024 1:06pm 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 Work Phone: 1(498) 771-476802-21-2025 [facility]02-19-2025 [facility]02-19-2025 History of Present illness Narrative* Husam Yan [...] said that the patient is in a intermediate and that is why he hasn't come in- he had an amputation of his foot. msg sent to pcp to make him aware that he is in a intermediate Reason for Outreach Care Gap/HCC or Scheduling [...] 11, 2024 2:35 PM documented in this encounterFirelands Regional Medical Center02-19-2025 NoteC[facility]02-17-2025 Telephone encounter Note* Telephone Encounter - Radha [...] Sig: Inject 37 Units subcutaneously once daily. SAUL Roach July 09, 2024 11:51 AM [facility]02-17-2025 Miscellaneous Notes* Telephone Encounter - [...] Sig: Inject 37 Units subcutaneously once daily. 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 inactive August 29, 2024 1:06pm Wound, open, foot inactive August 292024 1:06pm Amputation of right lower extremity below knee acute September 24 9:58am [facility] Work Phone: 1(159) 351-397601-15-2025 Evaluation note* Diagnosis Onset Date Resolution Status [...] chronic August 29, 2024 1:06pm 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 Work Phone: 1(864) 810-534601-14-2025 Telephone encounter Note* Telephone Encounter - Catalina Ruth RN - 06/05/2024 3:25 PM EST Closing encounter as Pt and family have not called back in. If they do we can open a new TE. [facility]01-14-2025 Miscellaneous Notes* Telephone Encounter - [...] to clear him. If he is inthe intermediate with Dr. Wiggins, they should have access [...] that Cardiology Dr. Yunior Tong from the [facility] has signed off on medical [...] If he is a resident at the intermediate, it would be most convenient for the patient to have Dr. Wiggins do his pre op there. If they are unable or unwilling, he would need OV with us before I could clear him. * Telephone Encounter - Alanna Veloz LPN - 05/30/2024 10:55 AM EST Phoned patients son, Jey back to advise if patient is at [facility] and on a skilled unit under Dr Wiggins's care we recommend she fill the clearance form out. Jey explained that Dr Wiggins rounds on Tuesdays when patient is at the wound clinic for his weekly debridments. Explained to son that wetypically need to obtain labs and EKG and patient would need to be seen in office. 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 He states that fire coordinator for this provider is going to be sending over a surgical release for for the providers office to sign. Pt was last seen by Lauren Podlogar BUS ATTENDANT on 03/28/24, he had an A1C and CMP done. I don't know if Pt would been to come in and be seen again before forms could be signed. Forms are going to be sent to office Attn: Alanna and Deborah. Please call and advise if anything else will need to be done. documented in this encounterFirelands Regional Medical Center01-09-2025 Telephone encounter Note * Telephone [...] triage nurse the ok/information. Alanna Veloz LPN [facility]01-09-2025 Telephone encounter Note* Telephone Encounter - Husam Yan MD - 05/31/2024 12:42 PM EST He will still need physical exam and possibly labs before I would be able to clear him. If he is inthe intermediate with Dr. Wiggins, they should have access to his labs and might be easier for them to see and clear him. If unable or unwilling, I would need to see him in our office. [facility]01-09-2025 Telephone encounter Note* Telephone Encounter - Mary Hodges LPN - 05/31/2024 11:41 AM EST Son dropped off copies of POA and Living Will forms at this time. Mary Hodges LPN [facility]01-08-2025 Telephone encounter Note* Telephone Encounter - Deborah Bedoya LPN - 05/30/2024 4:52 PM EST Son in law calling in to advise office that Cardiology Dr. Yunior Tong from the [facility] has signed off on medical [...] after PCP reviews paperwork. Deborah Bedoya LPN [facility]01-08-2025 Telephone encounter Note* Telephone Encounter - Deborah Bedoya LPN - 05/30/2024 1:51 PM EST Telephone call placed to patients son in law Jey. Made aware patient would need to be seen in office or could utilize nursing homes Dr. Mauricio understanding. Deborah Bedoya LPN [facility]01-08-2025 Telephone encounter Note* Telephone Encounter - Husam Yan MD - 05/30/2024 11:13 AM EST If he is a resident at the intermediate, it would be most convenient for the patient to have Dr. Wiggins do his pre op there. If they are unable or unwilling, he would need OV with us before I could clear him. [facility]01-08-2025 Telephone encounter Note* Telephone Encounter - Alanna Veloz LPN - 05/30/2024 10:55 AM EST Phoned patients sonJey back to advise if patient is at [facility] and on a skilled unit under Dr Wiggins's care we recommend she fill the clearance form out. Jey explained that Dr Wiggins rounds on Tuesday mornings when patient is at the wound clinic for his weekly debridments. Explained to son that wetypically need to obtain labs and EKG and patient would need to be seen in office. 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 Please advise. Alanna Veloz LPN [facility]01-08-2025 Telephone encounter Note* Telephone Encounter [...] it in the ER. He states that fire coordinator for this provider is going to be sending over a surgical release for for the providers office to sign. Pt was last seen by Lauren Podlogar BUS ATTENDANT on 03/28/24, he had an A1C and CMP done. I don't know if Pt would been to come in and be seen again before forms could be signed. Forms are going to be sent to office Attn: Marilia. Please call and advise if anything else will need to be done. [facility]12-19-2024 [facility]12-13-2024 [facility]12-03-2024 [facility]12-02-2024 Note [facility]12-02-2024 History of Present illness Narrative* Sridevi Miller [...] 23, 2024 2:35 PM documented in this encounterFirelands Regional Medical Center11-26-2024 Telephone encounter Note * Telephone Encounter - Mayela Hopson LPN - 04/17/2024 12:51 PM EST noted. [facility]11-26-2024 Miscellaneous Notes* Telephone Encounter - [...] below. She said her father is in [facility] with a fott infection right now. She will update you when she can. * Telephone Encounter - Lauren Arzola APRN.CNP - 04/16/2024 7:08 AM EST Update me Tuesday with readings. Lauren Arzola APRN.CNP * Telephone Encounter - Mayela Hopson LPN - 04/13/2024 2:47 PM EST Phoned daughter Radha and went over notes from Lauren Arzola BUS ATTENDANT with understanding. Radha said father would not [...] units daily. Please advise documented in this encounterFirelands Regional Medical Center11-25-2024 Telephone encounter Note * Telephone Encounter - Lauren Arzola APRN.CNP - 04/16/2024 9:19 AM EST Okay. Possible why his sugars have bee elevated as well. Lauren Arzola APRN.CNP [facility]11-25-2024 Telephone encounter Note* Telephone Encounter - Mayela Hopson LPN - 04/16/2024 9:08 AM EST Phoned Radha and went over notes below. She said her father is in [facility] with a fott infection right now. She will update you when she can. [facility]11-25-2024 [facility]11-25-2024 Telephone encounter Note* Telephone Encounter - Lauren Arzola APRN.CNP - 04/16/2024 7:08 AM EST Update me Tuesday with readings. Lauren Arzola APRN.CNP [facility]11-23-2024 [facility] History of Present illness Narrative* Usman Quesada [...] distress and family will self transport to [place] emergency department documented in this encounterFirelands [facility] Center11-22-2024 Telephone encounter Note * Telephone Encounter - Mayela Hopson LPN - 04/13/2024 2:47 PM EST Phoned daughter Radha and went over notes from Lauren Arzola BUS ATTENDANT with understanding. Radha said father would not like to see pharmacist, she will try the increase in Lantus. [facility]11-22-2024 Telephone encounter Note* Telephone Encounter - Lauren Arzola APRN.LUZ - 04/13/2024 2:36 PM EST Increase Lantus to 37 units daily. Would he be willing to talk with our clinical pharmacist to helpwith managing his diabetic medications as it doesn't seem we are getting much better. Lauren Arzola APRN.RADIOLOGIC TECHNOLOGY PROGRAM DIRECTOR [facility]11-22-2024 Telephone encounter Note* Telephone Encounter - Mayela Hopson LPN - 04/13/2024 2:31 PM EST Patient daughter Radha calling fathers blood sugar average is 306. She said he is not very active, his activity is going to dialysis 3 times a week. His Lantus is 33 units daily. Please advise [facility]11-15-2024 Telephone encounter Note* Telephone Encounter - Deborah Bedoya LPN - 04/06/2024 8:18 AM EST Patients daughter Radha telephoned, she is medical POA and will be bringing in paperwork. Providers recommendations below given. Voices understanding. Deborah Bedoya LPN [facility]11-15-2024 Miscellaneous Notes* Telephone Encounter - [...] EST Patient daughter Radha calling to give BUS ATTENDANT her father blood sugar average since increased [...] dates with separate readings. documented in this encounterFirelands Regional Medical Center11-15-2024 Telephone encounter Note * Telephone [...] sooner if getting lows. Lauren Arzola APRN.CNP [facility]11-14-2024 Telephone encounter Note* Telephone Encounter - Mayela Hopson LPN - 04/05/2024 11:15 AM EST Patient daughter Radha calling to give BUS ATTENDANT her father blood sugar average since increased [...] not give her dates with separate readings. [facility]11-06-2024 Instructions* Patient Instructions* Lauren Arzola APRN.CNP - 03/28/2024 1:09 PM EST Check blood sugars three times a day and as needed- update me in one week with readings, sooner if needed documented in this encounterFirelands Regional Medical Center11-06-2024 [facility]11-[facility]-2024 History of Present illness Narrative* Lauren Arzola [...] changes, polyuria or polydipsia. Daughter concerned about accuracy expert giving him a diuretic She reports he [...] Outpatient Medications Medication Sig flash glucose sensor (ELAN MicroelectronicsSTYLE TORIBIO 2 SENSOR) kit 2 Each four times daily. insulin glargine (LANTUS SOLOSTAR U-100 INSULIN) 100 unit/mL (3 mL) Inject 25 Units subcutaneously once daily. flash glucose scanning reader (ELAN MicroelectronicsSTYLE TORIBIO 14 DAY READER) 1 Units four times daily. blood sugar diagnostic (BLOOD GLUCOSE TEST) test strip Test blood sugar(s) 2 times daily. Dx: Type 2 DM -E11. Insulin: No blood sugar diagnostic (ACCU-CHEK LISA PLUS TEST STRP) test strip Test blood sugar(s) 2x daily. DxE11.65. Insulin: No. mecobalamin (B12 ACTIVE ORAL) Take 1 tablet by mouth once daily. Every other day Insulin [place], Disposable, (BD ULTRA-FINE SHAHEEN PEN NEEDLE) 32 [...] Units by mouth once daily. Blood-Glucose Meter [facility] Dispense 1 kit. Dx: E11.65 Aspirin 81 [...] daughter they need to discuss concerns with accuracy expert, verbalizes understanding Lauren Arzola APRN.CNP Prescription instructions [...] Level: 4 - Moderate documented in this encounterFirelands Regional Medical Center08-16-2024 History of Present illness Narrative* [...] week. Follows with Dr. Faria Follows with [facility] cardiology for hx of Mobitz Type [...] stage renal disease) on dialysis ([facility]) Comment: Josh, Thai, Sat No date: Glaucoma Comment: Dr Jimenez [...] Units subcutaneously once daily. flash glucose sensor (VitAG CorporationYLE TORIBIO 2 SENSOR) kit 2 Each four times daily. semaglutide (OZEMPIC) 0.25 mg or 0.5 mg(2 mg/1.5 mL) pen Inject 0.5 mg subcutaneously one time a week. semaglutide (OZEMPIC) 0.25 mg or 0.5 mg(2 mg/1.5 mL) pen Inject 0.5 mg subcutaneously one time a week. flash glucose scanning reader (EL[employer]electronicsSTYLE TORIBIO 14 DAY READER) 1 Units four times daily. blood sugar diagnostic (BLOOD GLUCOSE TEST) test strip Test blood sugar(s) 2 times daily. Dx: Type 2 DM -E11.65 Insulin: No blood sugar diagnostic (ACCU-CHEK LISA PLUS TEST STRP) test strip Test blood sugar(s) 2x daily. DxE11.65. Insulin: No. mecobalamin (B12 ACTIVE ORAL) Take 1 tablet by mouth once daily. Every other day Insulin [place], Disposable, (BD ULTRA-FINE SHAHEEN PEN NEEDLE) 32 [...] Units by mouth once daily. Blood-Glucose Meter [facility] Dispense 1 kit. Dx: E11.65 Aspirin 81 [...] Directive Discussion Never done Covid-19 Vaccine( - season) due on 06/24/2023 Hepatitis B Vaccine(9 [...] long-term current use of insulin ([facility]) - ICD9: 250.50, 362.04, 362.07, V58.67, ICD10: E11.3213, Z79.4 (primary diagnosis) - due for A1c - continue Lantus - not able to tolerate Ozempic due to GI side effects - FREESTYLE TORIBIO 2 SENSOR KIT - COMPREHENSIVE METABOLIC PANEL - HEMOGLOBIN A1C - follow-up in 6 months sooner if needed 2. ESRD (end stage renal disease) on dialysis ([facility]) - ICD9: 585.6, V45.11, ICD10: [...] Level: 4 - Moderate documented in this encounterFirelands Regional Medical Center08-16-2024 NoteC[facility]07-25-2024 Telephone encounter Note* Telephone Encounter - [place] Concepcion Hughes - 12/15/2023 4:28 PM EDT [...] good untilOctober. Please call francisco Almazan Concepcion Gambleing Saul December 15, 2023 4:29 PM [facility]07-25-2024 Miscellaneous Notes* Telephone Encounter - [place] Concepcion Hughes - 12/15/2023 4:28 PM EDT [...] good untilOctober. Please call francisco Almazan Concepcion Gambleing [facility] December 15, 2023 4:29 PM documented in this encounterFirelands Regional Medical Center04-18-2024 Hospital Discharge instructions Patient Education [...] provider approves. General instructions Take or apply zjei-wfp-uduzaww and prescription medicines only as told by [...] your health care provider. Take or apply ezik-opo-tlqjmzu and prescription medicines only as told by your health care provider. This includes any eye drops. This information is not intended to replace advice given to you by your health care provider. Make sure you discuss any questions you have with your health care provider. Document Released: 01/25/2012 Document Revised: 05/25/2019 Document Reviewed: 05/28/2019 [employer] Patient Education 2019 [employer] Follow Up Care 09/06/2023 10:35:24 With:JEAN PIERRE ZIEGLER MD, [facility] Address: [facility] [address] Wilhelm [facility] [place] [address]- [phone] When: Unknown Comments:Follow-up as scheduled [facility] 04-18-2024 Summary of episode note Discharge Instructions Thank you for allowing [facility] to assist you with your healthcare needs. The following is importantdischarge information regarding your hospital visit. What to do next Follow Up Appointments Follow Up with JEAN PIERRE ZIEGLER MD, [facility] When Why: Follow-up as scheduled Where: [facility] Fel[address] HANDLEY [facility] [place] [address]- [phone] The Following Activity and Diet Have Been [...] provider approves. General instructions Take or apply lawi-ftj-oalgqhv and prescription medicines only as told by [...] your health care provider. Take or apply ntqn-wgm-mbpvlgm and prescription medicines only as told by your health care provider. This includes any eye drops. This information is not intended to replace advice given to you by your health care provider. Make sure you discuss any questions you have with your health care provider. Document Released: 01/25/2012 Document Revised: 05/25/2019 Document Reviewed: 05/28/2019 Elsevier Patient Education 2019 [employer] Additional Information VACCINATE! IT SAVES LIVES! Members of the community who have not yet received the COVID-19 vaccine and would like to receive it can visit one of [facility] vaccine clinics. There are many vaccine clinic locations within the [facility]. For locations and available times, please visit [email or web address].[place].gov/. It is important to note that some COVID mobile vaccine clinics are held outdoors and may be canceled in rainy or stormy conditions. To learn more about pediatric vaccinations (ages 5-11), we invite you to visit the [employer] webpage. https://www.[email or web address].org/pages/[email or web address]-Ahrny-Ogilzpbwzlw-Tvtlysajih-Cmyzo-Hqg stions.htmlTo learn more about the COVID-19 vaccine, we invite you to visit the CDC website for a list of frequently asked questions.https://www.cdc.gov/coronavirus/2019-ncov/vaccines/faq.html [facility] Patient Portal Access Instructions: Stay connected with your healthcare team and access your personal medical information anytime with the [facility] Patient Portal. Please follow the directions below to create your [facility] account: 1.Access the email account you provided upon registration to the hospital/physician office.2.Look for an invitation email from [facility].3.Open the email and access the invitation link: AcceptInvitation to [facility].4.Fill in the required meyers to create your account. To access your account, visit [employer] SystemsOneChart. Click the blue button labeled "Access Patient [...] who you will allowto register on the [facility] Patient Portal for access to your information. You can also access the [facility] Patient Portal on the [facility] aramis. Simply click on "Patient Portal" and then log into your account. If you would like to receive a full copy of your medical records, please contact the [facility] Medical Records Department by calling [phone], Tuesday through Tuesday between 8 a.m. and [...] Call your local pharmacy or go to [email or web address] to find one close to you.3.Make use of household items: Use cat litter or old coffee grounds to dispose medications if other options arenot available. Mix your drugs with these household products, seal them in an airtight container andthrow it into the garbage. Call [facility]: [phone] to be sure your drugs can be [...] that I should contact my do ctor. Patient/Almond Blancher Signature: Date/Time: Relationship to Patient: Witness Name/Signature: Date/Time: [facility] [id number] Anesthesiology Consult note Patient: PERLA THOMPSON Age: [...] NIKKY AVENDANO MD on 09/08/2023 02:22 PM [facility] [id number] Anesthesiology Consult note Patient: PERLA THOMPSON Age: [...] mL/hr, Ophthalmic, PREOP pharm Documented Medications Documented FreeShutl Toribio 14 Day Sensor kit: CHANGE APPLIANCE [...] Cataract extraction and implantation of intraocular lens ([id number]) on 09/05/2023 at 88 Years. Comments: 09/07/2023 8:24 ISABEL Marte RIGHT EYE Angioplasty ([id number]) in 2021 at 87 Years. Comments: 09/07/2023 10:11 ISABEL Marte LEFT UPPER EXTREMITY FISTULOGRA IWTH CUTTING BALLON ANGIOPLASTY Repair of inguinal hernia ([id number]). Comments: 09/07/2023 8:23 ISABEL Marte UNSURE OF LATERALITY, HAD IN THE LATE 1960'S OR EARLY 1970S Extn - Extraction of tooth ([id number]). Comments: 09/07/2023 8:23 ISABEL Marte ALL TEETH REMOVED AV - Arteriovenous fistula ([id number]). Comments: 09/07/2023 10:06 ISABEL Marte LEFT ARM [...] Height 170.2 cm Admission Weight 98.7 kg [place] Body Weight 66.12 kg Type of Scale [...] Documentation reviewed: Current records. Assessment and Plan [place] [employer] Anesthesiologists (ASA) physical status classification: Class III. Anesthetic Preoperative Plan Premedication: intravenous. Anesthetic technique: General. Induction: intravenously. Maintenance airway: Oral endotracheal tube, RSI. Postoperative pain management: Per surgeon. Risks discussed: nausea, vomiting, headache, sore throat, dental injury, hypotension, allergic reaction, serious complications. Informed consent: signed by patient. Digitally Signed by JERMAINE SWANSON MD on 09/08/2023 12:14 PM [facility] [id number] Miscellaneous Notes* Telephone Encounter - Alanna Veloz [...] for a rx to be sent to [place] [facility] please. Please advise documented in this encounterFirelands Regional Medical Center03-18-2024 Miscellaneous Notes* Telephone Encounter - [...] calling: self Call patient at: at home [phone] (home) [phone] (cell) Was an appointment scheduled: No Closing statement: Results or non-symptom based questions: Thank you for calling [facility], your call will be returned within the next business day. Demetra Hughes documented in this encounterFirelands Regional Medical Center03-07-2024 Miscellaneous Notes* Telephone Encounter - [...] notify patient. Demetra Hughes documented in this encounterFirelands Regional Medical Center02-21-2024 Miscellaneous Notes* Telephone Encounter - Valerie Burris LPN - 07/13/2023 8:14 AM EST Spoke to Radha, daughter and message given that short term prescription was sent to the pharmacy. Valerie Burris LPN * Telephone Encounter - Lauren Arzola APRN.CNP - 07/13/2023 6:58 AM EST New prescription sent to [facility] Lauren Arzola APRN.LUZ * Telephone Encounter - Heike Lainez - 07/12/2023 8:44 AM EST Patient's daughter, Radha, said a mail order rx for Ozempic was sent in yesterday for this patient. Said patient is completely out of medication. Wants to know if a short term refill can be sent to [facility] in [place]. Do not cancel mail order rx. * [...] Thank you. Heike Hughes. documented in this encounterFirelands Regional Medical Center02-19-2024 Miscellaneous Notes* Telephone Encounter - [...] visit in primary care: 09/23/2023 Patient using [facility] mail order please send new RX to mail order Per [facility] patient has no refills Please advise. Thank you. Marina Anguiano. documented in this encounterFirelands Regional Medical Center02-05-2024 History of Present illness Narrative* Danilo Martines [...] Objective: [facility] V[facility]: DP and PT pulses are nonpalpable [...] long-term current use of insulin ([facility]) (primary encounter diagnosis) (B35.1) Onychomycosis [...] Care Patient presents for diabetic foot care. [facility]- 07/15/21. Patient tried cutting some of his toenails last week. Clipped 1st and 2nd toe. Swelling to bilateral legs, using zip up compression stockings. documented in this encounterFirelands Regional Medical Center02-05-2024 Instructions* Patient Instructions* Danilo Martines [...] (or decreased sensation in your feet) a electrical logging engineer should always cut your toenails. Be Careful [...] Go to your health care provider or electrical logging engineer to treat these conditions. documented in this encounterFirelands Regional Medical Center10-24-2023 Miscellaneous Notes* Telephone Encounter - Mayela Hopson LPN - 03/15/2023 9:56 AM EDT [facility] from [facility] requesting copy of immunization record for flu shot information be faxed to [phone]. Printed and faxed as requested. documented in this encounterFirelands Regional Medical Center10-17-2023 Miscellaneous Notes* Telephone Encounter - [...] mail order pharmacy. Please send to [facility]. documented in this encounterFirelands Regional Medical Center10-05-2023 Miscellaneous Notes* Telephone Encounter - Margret Linares LPN - 02/24/2023 1:12 PM EDT Called the pharmacy and this was billed through insurance and picked up in 02/22/23. * Telephone Encounter - Margret Linares LPN - 02/24/2023 1:09 PM EDT PERLA THOMPSON (Figueroa: [id number]) Rx #: [id number] Ozempic (0.25 or 0.5 MG/DOSE) 2MG/3ML pen-injectors Form [employer] Electronic PA Form Created 3 days ago Sent to Plan 20 hours ago Plan Response 20 hours ago Submit Clinical Questions 20 hours ago Determination Favorable 1 hour ago Message from Plan PA Case: [id number], Status: Approved, Coverage Starts on: 02/24/2023 12:15:13 PM, Coverage Ends on: 02/24/2023 12:15:13 PM. Questions? Contact . documented in this encounterFirelands Regional Medical Center08-15-2023 Telephone encounter Note * Telephone [...] week. Please review and advise. Magaly Bhakta [facility]08-15-2023 Miscellaneous Notes* Telephone Encounter - [...] and advise. Magaly Bhakta documented in this encounterFirelands Regional Medical Center07-17-2023 Instructions* Patient Instructions* Lauren Arzola APRN.RADIOLOGIC TECHNOLOGY PROGRAM DIRECTOR - 12/06/2022 9:40 AM EDT WHAT YOU [...] review all the medicines you take, even qwef-uiq-mextpfr medicines. As you get older, the way [...] have certain medical conditions. documented in this encounterLisa Ville [id number] History of Present illness Narrative* Podlogar, LaurenELICIA.RADIOLOGIC TECHNOLOGY PROGRAM DIRECTOR - 12/06/2022 9:09 AM EDT 12/06/2022 Patient [...] 1 tablet by mouth once daily. Insulin [place], Disposable, (BD ULTRA-FINE SHAHEEN PEN NEEDLE) 32 [...] Units by mouth once daily. Blood-Glucose Meter [facility] Dispense 1 kit. Dx: E11.65 Aspirin 81 [...] which included preparing to see the patient, kvsh-tk-zfxp patient care, completing clinical documentation, obtaining and/or reviewing separately obtained history, performing a medically appropriate examination, counseling and educating the pat ient/family/caregiver, and ordering medications, tests, or procedures. documented in this encounterFirelands Regional Medical Center06-26-2023 Miscellaneous Notes* Telephone Encounter - [...] of Last Labs: 09/06/2022 documented in this encounterFirelands Regional Medical Center06-15-2023 Miscellaneous Notes* Telephone Encounter - SAUL Ruvalcaba - 11/04/2022 11:15 AM EDT Patient's daughter called back in, the test strips are called [employer], they would like these sent to [facility] [place]. Please review. SAUL Ruvalcaba November 04, 2022 11:16 AM * [...] testing strips to be sent to [facility] [place]. Please review and advise, Liza Johnson RN documented in this encounterFirelands Regional Medical Center06-07-2023 Miscellaneous Notes* Telephone Encounter - [...] and advise. Harper Fisher documented in this encounterFirelands Regional Medical Center04-17-2023 History of Present illness Narrative* Lauren Arzola, JUDICIAL ASSISTANT.RADIOLOGIC TECHNOLOGY PROGRAM DIRECTOR - 09/06/2022 9:50 AM EDT 09/06/2022 Patient [...] sugar(s) 2x daily. DxE11.65. Insulin: No. Insulin [place], Disposable, (BD ULTRA-FINE SHAHEEN PEN NEEDLE) 32 [...] Units by mouth once daily. Blood-Glucose Meter [facility] Dispense 1 kit. Dx: E11.65 Aspirin 81 [...] long-term current use of insulin ([facility]) - ICD9: 250.50, 362.05, 362.07, [...] stage renal disease) on dialysis ([facility]) - ICD9: 585.6, V45.11, ICD10: [...] which included preparing to see the patient, yvpv-xq-ebvw patient care, completing clinical documentation, obtaining and/or reviewing separately obtained history, performing a medically appropriate examination, counseling and educating the pat ient/family/caregiver, and ordering medications, tests, or procedures. documented in this encounterFirelands Regional Medical Center03-30-2023 Miscellaneous Notes* Telephone Encounter - [...] Thank you. Aimee Nicole documented in this encounterFirelands Regional Medical Center01-17-2023 Miscellaneous Notes* Telephone Encounter - Lauren Arzola APRN.CNP - 06/08/2022 10:10 AM EST Ozempic sent to mail order. Lauren Arzola APRN.LUZ * Telephone Encounter - Deborah Bedoya LPN - 06/08/2022 10:00 AM EST Patients daughter telephoned and notified of results and recommendations. Voices understanding. [facility] stated they wont have the ozempic until [...] will place referral order. documented in this encounterFirelands Regional Medical Center01-16-2023 History of Present illness Narrative* [...] stage renal disease) on dialysis ([facility]) Tues, Thurs, Sat Glaucoma Dr [...] to radial artery anastomotic / powerflex angioplasty PAST SURGICAL HISTORY OF Bilateral [...] sugar(s) 2x daily. DxE11.65. Insulin: No. Insulin [place], Disposable, (BD ULTRA-FINE SHAHEEN PEN NEEDLE) 32 [...] Units by mouth once daily. Blood-Glucose Meter [facility] Dispense 1 kit. Dx: E11.65 Aspirin 81 [...] long-term current use of insulin ([facility]) - ICD9: 250.50, 362.05, 362.07, [...] diet. Husam Yan MD documented in this encounterFirelands Regional Medical Center10-24-2022 Miscellaneous Notes* Telephone Encounter - [...] new regimen. If agreeable, will call in [employer] to his pharmacy. Kidney function in ESRD range. Continue with dialysis. Cholesterol looks good. documented in this encounterFirelands Regional Medical Center10-14-2022 History of Present illness Narrative* [...] with dialysis 3 days per week at [facility] as directed. albumin was low on [...] sugar(s) 2x daily. DxE11.65. Insulin: No. Insulin [place], Disposable, (BD ULTRA-FINE SHAHEEN PEN NEEDLE) 32 [...] Units by mouth once daily. Blood-Glucose Meter [facility] Dispense 1 kit. Dx: E11.65 Aspirin 81 [...] long-term current use of insulin ([facility]) - ICD9: 250.50, 362.04, 362.07, [...] vaccine - ICD9: V04.89, ICD10: Z23 - [employer] COVID-19 BIVALENT BOOSTER VACCINE, AGE 12+ YR Husam Yan MD documented in this encounterFirelands Regional Medical Center09-19-2022 Miscellaneous Notes* Telephone Encounter - Deborah Bedoya LPN - 02/08/2022 9:58 AM EDT Daughter Radha notified. Voices understanding. Deborah Bedoya LPN * Telephone Encounter - Lauren Arzola APRN.CNP - 02/08/2022 9:30 AM EDT He may take the tresiba as ordered- it is a long acting insulin. I will sent another prescription as requested by [employer]. Lauren Arzola APRN.CNP * Telephone Encounter - Valerie Burris LPN - 02/08/2022 8:35 AM EDT Bernarda with [facility] called and they do cover Lantus and to send new rx to them today so they can fill for pt. Per Bernarda Pt was given a Generic from [employer]. Spoke with [facility] Pharmacist and Tresiba was [...] let daughter know [facility]. What insulin did they receive from [facility]. Thanks, Lauren Arzola APRN.CNP * Telephone Encounter - Concepcion Hughes - 02/08/2022 8:09 AM EDT Daughter Radha is calling and she stated she needs to know what is going on because this was supposed to arrive from [facility] Products. Then a prescription went to [facility] and they filled something but [...] on the Glargine U100 to fax # [phone]. She is asking to have it faxed back to them. documented in this encounterFirelands [facility] Center09-13-2022 Miscellaneous Notes* Telephone Encounter - [...] ORDER RX REQUESTED ON 01/26/2022 FOR HIS [facility],PLEASE FILL THIS SOON POSSIBLE Patient aware RX will be sent to pharmacy. No need to notify patient. Mairna Anguiano documented in this encounterFirelands [facility] Medical Center09-06-2022 Miscellaneous Notes* Telephone Encounter - Harper García [...] advise. Harper García Pss documented in this encounterFirelands Regional Medical Center07-25-2022 Miscellaneous Notes* Telephone Encounter - [...] 02/2022 Last refill: 02/2021 documented in this encounterFirelands [facility] Medical Center05-06-2022 Miscellaneous Notes* Telephone Encounter - Husam Yan MD - 09/25/2021 12:56 PM EDT Reviewed. * Telephone Encounter - Breanne Carvalho RN - 09/25/2021 12:42 PM EDT Daughter, Radha, returned call from pcp office. Reports patient received call also, but he won't return calls. Given provider's message below with verbalized understanding. Reports she will try to get patient to see accuracy expert, but doesn't think he will. Reports patient [...] week with his readings. documented in this encounterFirelands Regional Medical Center10-13-2021 History of Present illness Narrative* Suzanne Vigil [...] 04, 2021 9:34 AM documented in this encounterFirelands Regional Medical Center11-27-2020 Evaluation note* Diagnosis Onset Date Resolution Status Admit Date Chronic diastolic (congestive) heart failure April 18, [...] 26, 2024 9:34am Closed hip fracture acute Sept2024 5:56pm Closed right hip fracture acute January 25, 2025 5:56pm Current use of oil heaterman anticoagulation acute January 25, 025 5:56pm End stage renal disease acute S eptemb2024 5:56pm Fall acute January 25, 2025 5:56pm Anemia of chronic disease chronic January 25, 2025 5:56pm Closed hip fracture acute Septe mber 2024 9:54am [facility] Work Phone: [phone]) 574-437607-29-2016 History of Past illness Narrative* Problem Noted Date Resolved Date 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 12/19/2015 04/26/2016 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 02/28/2020 Noncompliance with diet and medication regimen 1 06/17/2012 11/18/2016 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 04/07/2013 11/18/2016 Leg edema 07/14/2009 02/28/2020 documented as of this encounter (statuses as of 10/07/2021) [facility] History of Past illness Narrative* Problem Noted Date Resolved Date 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 12/19/2015 04/26/2016 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 02/28/2020 Noncompliance with diet and medication regimen 1 06/17/2012 11/18/2016 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 04/07/2013 11/18/2016 Leg edema 07/14/2009 02/28/2020 documented as of this encounter (statuses as of 12/14/2021) [facility] History of Past illness Narrative* Problem Noted Date Resolved Date 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 12/19/2015 04/26/2016 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 02/28/2020 Noncompliance with diet and medication regimen 1 06/17/2012 11/18/2016 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 04/07/2013 11/18/2016 Leg edema 07/14/2009 02/28/2020 documented as of this encounter (statuses as of 02/02/2022) [facility] of Past illness Narrative* Problem Noted Date Resolved Date 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 12/19/2015 04/26/2016 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 02/28/2020 Noncompliance with diet and medication regimen 1 06/17/2012 11/18/2016 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 04/07/2013 11/18/2016 Leg edema 07/14/2009 02/28/2020 documented as of this encounter (statuses as of 02/08/2022) [facility] of Past illness Narrative* Problem Noted Date Resolved Date 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 12/19/2015 04/26/2016 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 02/28/2020 Noncompliance with diet and medication regimen 1 06/17/2012 11/18/2016 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 04/07/2013 11/18/2016 Leg edema 07/14/2009 02/28/2020 documented as of this encounter (statuses as of 02/19/2022) [facility] of Past illness Narrative* Problem Noted Date Resolved Date 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 12/19/2015 04/26/2016 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 02/28/2020 Noncompliance with diet and medication regimen 1 06/17/2012 11/18/2016 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 04/07/2013 11/18/2016 Leg edema 07/14/2009 02/28/2020 documented as of this encounter (statuses as of 03/10/2022) [facility] of Past illness Narrative* Problem Noted Date Resolved Date 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 12/19/2015 04/26/2016 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 02/28/2020 Noncompliance with diet and medication regimen 1 06/17/2012 11/18/2016 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 04/07/2013 11/18/2016 Leg edema 07/14/2009 02/28/2020 documented as of this encounter (statuses as of 03/15/2022) [facility] illness Narrative* [...] of this encounter (statuses as of 06/07/2022) [facility] of [facility] illness Narrative* [...] of this encounter (statuses as of 06/08/2022) [facility] of Past illness Narrative* [...] of this encounter (statuses as of 08/19/2022) [facility] of Past illness Narrative* [...] of this encounter (statuses as of 09/06/2022) [facility] of [facility] illness Narrative* [...] of this encounter (statuses as of 10/28/2022) [facility] illness Narrative* [...] of this encounter (statuses as of 11/04/2022) [facility] of [facility] illness Narrative* [...] of this encounter (statuses as of 11/15/2022) [facility] of [facility] illness Narrative* [...] of this encounter (statuses as of 12/06/2022) [facility] of [facility] illness Narrative* [...] of this encounter (statuses as of 02/26/2023) [facility] Narrative* [...] of this encounter (statuses as of 03/08/2023) [facility] Narrative* [...] of this encounter (statuses as of 03/15/2023) [facility] Narrative* [...] of this encounter (statuses as of 06/27/2023) [facility] Narrative* [...] of this encounter (statuses as of 07/11/2023) [facility] Narrative* [...] of this encounter (statuses as of 07/13/2023) [facility] Narrative* [...] of this encounter (statuses as of 07/28/2023) [facility] Narrative* [...] of this encounter (statuses as of 08/08/2023) [facility] illness Narrative* [...] of this encounter (statuses as of 09/07/2023) [facility] CenterConsult note Author Hakan Gunter [facility] Note Date/Time January 25, 2025 4:46pm [facility] Medical Records Department [address] [place] [id number] Consultation - Orthopedics 01/25/25 1644 MR#: [id number] Acct: [id number] Name: PERLA THOMPSON Rep #:[id number] : 1935 89 From: Hakan Gunter MD PCP: Dr. Nando Wiggins MD Status:R EG ER Location: ED HPI Consult Data Date of Consult: 01/25/25 HPI Narrative HPI Narrative: PERLA THOMPSON, is a 89 M who presents with a right hip fracture, in the setting ofa prior below knee amp on that side. 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 Wound, open, foot End stage renal disease MRSA (methicillin resistant staph aureus) culture positive Cutaneous abscess of right foot Diabetic infection of right foot Acute hyperkalemia Open wound Lives in intermediate Dietary restriction History of stress test History of echocardiogram Cardiology follow-up encounter History of atrial fibrillation Insulin dependent diabetes mellitus Other specified peripheral vascular diseases Type 2 diabetes mellitus with diabetic polyneuropathy Atherosclerosis of che[place]huevi artery of extremity with ulceration ESRD (end [...] repair History of appendectomy Social History housing: intermediate current occupational status: retired Smoking Status: Never [...] (Auto) 68.9, Lymph % (Auto) 18.0 L, [place] % (Auto) 9.6, Eos % (Auto) 2.4, Baso % (Auto) 0.7, Absolute Neuts (auto) 4.7, Absolute Lymphs (auto) 1.22, Nucleated RBC % 0 Imaging Radiology Impression Hip/Pelvis X-Ray 01/25/25 15:39 IMPRESSION: Comminuted impacted right intertrochanteric fracture. Reading Location: [facility] Chest X-Ray 01/25/25 15:57 IMPRESSION: Low lung volumes. Congestion. Reading Location: [facility] Assessment & Plan Assessment/Plan (1) Closed right [...] while nailing the fracture. MEGAN for now. 01/25/25 [id number] <Electronically signed by Hakan Gunter MD> Cosigner Signature (if applicable): CC: Dr. Nando Wiggins MD~ Signed [facility] Work Phone: Consult note Author Hakan Gunter [facility] Note Date/Time January 25, 2025 6:10pm [facility] Medical Records Department [address] [place] [address] Consultation - Orthopedics 01/25/25 1805 MR#: [id number] Acct: [id number] Name: PERLA THOMPSON Rep #:[id number] : 1935 89 From: Hakan Gunter MD PCP: Dr. Nando Wiggins MD Status:A DM IN Location: MD3 JE190-3 HPI Consult Data Date of Consult: 01/25/25 HPI Narrative HPI Narrative: PERLA THOMPSON, is a 89 M who presents with a right hip fracture. Fell out of a chair in intermediate. does not ambulate for months now. uses a radha lift. his son and daughter are here at the bed side. on dialysis. has right below knee amp. 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 Wound, open, foot End stage renal disease MRSA (methicillin resistant staph aureus) culture positive Cutaneous abscess of right foot Diabetic infection of right foot Acute hyperkalemia Open wound Lives in intermediate Dietary restriction History of stress test History of echocardiogram Cardiology follow-up encounter History of atrial fibrillation Insulin dependent diabetes mellitus Other specified peripheral vascular diseases Type 2 diabetes mellitus with diabetic polyneuropathy Atherosclerosis of che[place]vi artery of extremity with ulceration ESRD (end [...] repair History of appendectomy Social History housing: intermediate current occupational status: retired Smoking Status: Never [...] Extremity Narrative: closed, ER of the right LE, bka well healed stump, good size proximal [...] (Auto) 68.9, Lymph % (Auto) 18.0 L, [place] % (Auto) 9.6, Eos % (Auto) 2.4, Baso % (Auto) 0.7, Absolute Neuts (auto) 4.7, Absolute Lymphs (auto) 1.22, Nucleated RBC % 0 Imaging Radiology Impression Hip/Pelvis X-Ray 01/25/25 15:39 IMPRESSION: Comminuted impacted right intertrochanteric fracture. Reading Location: [id number] Chest X-Ray 01/25/25 15:57 IMPRESSION: Low lung volumes. Congestion. Reading Location: [facility] 2 part IT hip fracture. bones consistent [...] the surgery. For now MEGAN, NPO at [facility] in hopes of doing the procedure tomorrow. 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 Pros and cons risks and benefits were [...] with surgery,and signed the informed consent documentation. 01/25/25 1810 <Electronically signed by Hakan Gunter MD> Cosigner Signature (if applicable): CC: Dr. Nando Wiggins MD~ Signed [facility] Work Phone: Consult note Author Tammi Mosher [facility] Note Date/Time January 29, 2025 12:45pm [facility] Medical Records Department [address] [place] [address] Counseling Note - Pharmacy 01/29/25 1141 MR#: [id number] Acct: [id number] Name: PERLA THOMPSON Rep #:[id number] : 1935 89 From: Tammi Mosher PCP: Dr. Nando Wiggins MD Status:A DM IN [facility] Pharmacy Service has performed discharge medication reconciliation for this patient. The patient's discharge medication list was reviewed for discrepancies and discrepancies were resolved. Medications at Discharge Home Medications aspirin 81 mg tablet,delayed release (Adult Aspirin Regimen) 81 mg PO DAILY [facility] 07/01/20 Held on 01/29/25. Instructions: Resume on 02/01/25. torsemide 100 mg tablet 100 mg PO MOWEFR water pill 04/14/24 cholecalciferol (vitamin D3) 125 mcg (5,000 unit) capsule 125 mcg PO DAILY SUPPLEMENT 07/13/24 benzocaine 15 mg-menthol 3.6 mg lozenges (Sore Throat (benzocaine with menthol))2 mariaa mucous membrane Q2H PRN PRN sore throat #0 ea 07/20/24 apixaban 2.5 mg tablet (Eliquis) 2.5 mg PO BID #180 tabs 10/30/24 acetaminophen 500 mg capsule 1,000 mg PO Q8H PRN PRN fever or pain 11/22/24 calcium acetate(phosphat bind) 667 mg capsule 667 mg PO TID 01/25/25 dulaglutide 0.75 mg/0.5 mL subcutaneous pen injector (Trulicity) 1.5 mg subcut .Qtuesday 01/25/25 insulin glargine 100 unit/mL (3 mL) subcutaneous pen 14 unit subcut DAILY diabetes 01/25/25 vitamin B complex-vitamin C-folic acid 400 mcg tablet 1 tab PO DAILY 01/25/25 oxycodone 5 mg tablet 5 mg PO Q4H PRN PRN prn pain 4-10 3 days #10 tabs 01/29/25 sennosides 8.6 mg-docusate sodium 50 mg tablet (Stimulant Laxative Plus) 2 tab PO BID #0 tabs 01/29/25 01/29/25 1141 <Electronically signed by Tammi Mosher> Date _ Tammi Mosher Cosigner Signature (if applicable): Date CC: ~ Signed [facility] Work Phone: Evaluation + Plan note No data available for this section [facility] Evaluation note* Diagnosis Onset Date Resolution Status Problem with dialysis access acute Problem with dialysis access acute [facility] Work Phone: Evaluation note* Diagnosis 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 edema, without long-term current use of insulin ([facility]) documented in this encounter [facility]* Diagnosis 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 edema, without long-term current use of insulin ([facility]) documented in this encounter [facility]* Diagnosis 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 edema, without long-term current use of insulin ([facility]) documented in this encounter [facility]* Diagnosis 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 edema, without long-term current use of insulin ([facility]) documented in this encounter [facility] note* Diagnosis 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 edema, without long-term current use of insulin ([facility])- Primary Essential hypertension Unspecified essential hypertension Mixed hyperlipidemia 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) End stage renal disease Need for COVID-19 vaccine documented in this encounter [facility]* Diagnosis 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, without long-term current use of insulin ([facility])- Primary Essential hypertension Unspecified essential hypertension Mixed hyperlipidemia 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) End stage renal disease Chronic diastolic heart failure (HCC) Chronic diastolic heart failure Bradycardia Other specified cardiac dysrhythmias Lower extremity edema Edema Noncompliance of patient with dietary regimen Personal history of noncompliance with medical treatment, presenting hazards to [facility] 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 ([facility]) 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 edema, with long-term current use of insulin ([facility]) [facility]* Diagnosis 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, without long-term current use of insulin ([facility]) [facility] this encounter [facility]* Diagnosis 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, without long-term current use of insulin ([facility]) [facility] this encounter [facility]* Diagnosis 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, without long-term current use of insulin ([facility])- Primary ESRD (end stage renal disease) on dialysis ([facility]) End stage renal disease Chronic diastolic heart failure ([facility]) Chronic diastolic heart failure documented in this encounter [facility] note* Diagnosis 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 edema, without long-term current use of insulin ([facility]) documented in this encounter [facility] note* Diagnosis 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, without long-term current use of insulin ([facility]) documented in this encounter [facility] note* Diagnosis 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, without long-term current use of insulin ([facility])- Primary Lower extremity edema Edema ESRD (end stage renal disease) on dialysis ([facility]) End stage renal disease Chronic diastolic heart failure (HCC) Chronic diastolic heart failure Essential hypertension Unspecified essential hypertension 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 At high risk for falls Personal history of fall documented [facility] this encounter [facility]* Diagnosis 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, without long-term current use of insulin ([facility]) documented in this encounter [facility]* Diagnosis 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 edema, without long-term current use of insulin ([facility])- Primary Onychomycosis Dermatophytosis of nail Left foot pain Pain in limb Right foot pain Pain in limb documented [facility] this encounter [facility]* Diagnosis 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, without long-term current use of insulin ([facility]) documented in this encounter [facility]* Diagnosis 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, without long-term current use of insulin ([facility]) documented in this encounter [facility]* Diagnosis 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 edema, with long-term current use of insulin ([facility]) documented in this encounter [facility]* Diagnosis 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, without long-term current use of insulin ([facility]) [facility] Diagnosis 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 edema, with long-term current use of insulin ([facility])- Primary 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) End stage renal disease Chronic diastolic heart failure (HCC) Chronic diastolic heart failure 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 Lower extremity edema Edema Essential hypertension Unspecified essential hypertension Mixed hyperlipidemia documented in this encounter [facility]* Diagnosis 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, without long-term current use of insulin ([facility]) documented in this encounter [facility]* Diagnosis 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, acquired documented in this encounter [facility]* Diagnosis 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, without long-term current use of insulin (HCC)- Primary 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) End stage renal disease documented [facility] this encounter [facility]* Diagnosis Right foot infection- Primary Unspecified local infection of skin and subcutaneous tissue documented [facility] this encounter [facility]* Diagnosis 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, without long-term current use of insulin ([facility]) [facility] Additional Instructions CT scan of the brain showed no broken bones or internal bleeding. Give Tylenol as needed. Keep the small nasal wound clean. If symptoms worsen such as a severe headache, vomiting, confusion please return to the ER.[facility] Work Phone: Progress note Author Hakan Gunter [facility] Note Date/Time February 15, 2025 10:55am [facility] [facility] [address] [place] [address] [place] [address] OFFICE VISIT Date of Service: 02/15/25 MR#: [id number] Acct: [id number] Name: PERLA THOMPSON Rep #: [id number] : [id number] Provider: Dr. Soto Gunter MD Age/Sex: 89/M Location: [facility] [place].MELISSA Status: Signed Intake Vital Signs 01/26/25 14:04 Height 5 ft 10 in Intake Visit Reasons: RIGHT HIP Chief Complaint: Right Hip 3 Week Post-Op Accompanied by: Son in Law Is patient in pain?: Yes Allergies pioglitazone (From Actos) Allergy (Verified 02/15/25 10:05) fatigue simvastatin (From Zocor) Allergy (Verified 02/15/25 10:05) myalgia sitagliptin (From Januvia) Allergy (Verified 02/15/25 10:05) unknown Medications ?Medication ?Instructions ?Recorded ?Confirmed ?Type aspirin 81 mg tablet,delayed 81 mg PO DAILY heart heal th 07/01/20 02/15/25 History release (Adult Aspirin Regimen) Held on 01/29/25. Instructions: Resume on 02/01/25. torsemide 100 mg tablet 100 mg PO MOWEFR water pill 04/14/24 02/15/25 History cholecalciferol (vitamin D3) 125 125 mcg PO DAILY SUPP LEMENT 07/13/24 02/15/25 History mcg (5,000 unit) capsule benzocaine 15 mg-menthol 3.6 mg 2 mariaa mucous membrane Q2H PRN PRN 07/20/24 02/15/25 Rx lozenges (Sore Throat (benzocaine sore throat #0 ea with menthol)) apixaban 2.5 mg tablet (Eliquis) 2.5 mg PO BID #180 ta bs 10/30/24 02/15/25 Rx acetaminophen 500 mg capsule 1,000 mg PO Q8H PRN PRN f ever or 11/22/24 02/15/25 History pain dulaglutide 0.75 mg/0.5 mL 1.5 mg subcut .Qtuesday 10/1402/15/25 History subcutaneous pen injector (Trulicity) insulin glargine 100 unit/mL (3 14 unit subcut DAILY d iabetes 01/25/25 02/15/25 History mL) subcutaneous pen vitamin B complex-vitamin C-folic 1 tab PO DAILY 01/2502/15/25 History acid 400 mcg tablet sennosides 8.6 mg-docusate sodium 2 tab PO BID #0 tabs 01/29/25 02/15/25 Rx 50 mg tablet (Stimulant Laxative Plus) oxycodone 5 mg tablet 5 mg PO Q4H PRN PRN prn pain 4-10 01/30/25 02/15/25 Rx 30 days #30 tabs calcium acetate(phosphat bind) 667 667 mg PO TID PRN 0 02/15/25 02/15/25 History mg capsule insulin lispro 100 unit/mL subcut 02/15/25 02/15/25 Hi story subcutaneous pen Have you fallen in the past year?: Yes PFSH Medical History Closed right hip fracture Presence of leadless cardiac pacemaker Atherosclerosis of [place] artery of right leg with gangrene Wound, open, foot End stage renal disease MRSA (methicillin resistant staph aureus) culture positive Cutaneous abscess of right foot Diabetic infection of right foot Acute hyperkalemia Open wound Lives in intermediate Dietary restriction History of stress test History of echocardiogram Cardiology follow-up encounter History of atrial fibrillation Insulin dependent diabetes mellitus Other specified peripheral vascular diseases Type 2 diabetes mellitus with diabetic polyneuropathy Atherosclerosis of che[place]huevi artery of extremity with ulceration ESRD (end [...] 1 second degree atrioventricular block Abnormal electrocardiogram Surgical History Hx of amputation History of incision and drainage Hx of foot surgery History of cataract extraction History of ligation of vein History of arteriovenostomy for renal dialysis History of inguinal hernia repair History of appendectomy Family History Mother Hypertension Father Diabetes COPD (chronic obstructive pulmonary disease) Social History housing: intermediate current occupational status: retired Smoking Status: Never smoker alcohol intake: never substance use type: does not use caffeine: Yes Type: coffee Number of servings: 1 what type of physical activity do you participate in: none seatbelt use: always do you feel safe at home: Yes HPI RIGHT HIP Details: This documentation accurately reflects the service provided and the decisions made by me, Dr. Hakan Gunter MD 02/15/25 0911. Part of today?s visit was documented by [ ], acting as scribe. PERLA THOMPSON is a 89 year old M here today for 2 weeks FU R hip IM Nail synthes TFN-A intermediate length 125 angle. NEED XR. doing well. no concerns. here withhis son who is active in helping with his care. [facility]. assisted living.here in stretcher. Supplemental Info xr 2 view R hip, slight shortening, no back out or cut out. Coding Level of Care Code Global Post Op Diagnoses Closed hip fracture S72.009A Assessment and Plan Assessment and Plan (1) Closed hip fracture: Status: Acute Plan: PERLA THOMPSON is a 89 year old M here today for 2 weeks FU R hip IM Nail synthes TFN-A intermediate length 125 angle. Doing well. AAT and WBAT. OK to shower overincisions. FU in 6 weeks as agreed with son to minimize burden of follow up. Orders: Orders Femur Min 2 Views Today S72.009A - Fracture of unspecified part of neck of unspecified femur, initial encounter for closed fracture Clinical Quality Measures Falls Risk Screening/Assistive Devices Have you fallen in the past year?: Yes Ortho Exam General General: Yes no acute distress Neurologic: Yes alert and Yes oriented x3 Psychologic: Yes reasonable and appropriate Right Hip Skin: Yes CDI, Yes healed, No Ecchymosis, No soft tissue swelling and No Erythema HIP: no pain with log roll, stump looks fine 02/15/25 1057 <Electronically signed by Hakan jose MD> Date _ Hakan Gunter MD Cosign Signature: Date (if applicable) CC: ~ [facility] Work Phone: Reason for referral (narrative)* Diagnostic Procedure Only (Routine) - Closed Specialty Diagnoses / Procedures Referred By Tay aguilar Referred To Contact XR IMAGING Diagnoses Deformity of both feet Procedures XR FOOT GENERAL 3V AP/LAT/OBL BILAT X-RAY FOOT MINIMUM 3 VIEWS Husam Yan MD [address] [place] [address] [place] [id number] Referral ID Status Reason Start Date Expiration Date V isits Requested Visits Authorized [id number] Closed Auto-Generate d Referral 03/04/2021 04/03/[address] [facility] for referral (narrative)No reason for referral [facility] Phone: Reason for visit Narrative* Diagnostic Procedure Only (Routine) - Closed Specialty Diagnoses / Procedures Referred By Contac t Referred To Contact XR IMAGING Diagnoses Deformity of both feet Procedures XR FOOT GENERAL 3V AP/LAT/OBL BILAT X-RAY FOOT MINIMUM 3 VIEWS Husam Yan MD [address] [place] [address] [place] [address] Referral ID Status Reason Start Date Expiration Date V isits Requested Visits Authorized [id number] Closed Auto-Generate d Referral 03/04/2021 04/03/2022 1 1 [facility] Chief Complaint and Reason for Visit Chief Complaint L ARM DIALYSIS CATH LOW ADEQUECY LOW ACCESS FLOW DIALYSIS ACCESS COMPLICATION DIALYSIS ACCESS COMPLICATION Reason for Visit Problem with dialysi s access Problem with dialysis access Chief Complaint Admit Date CUSTODIAL LAB WORK June 06, 2024 5:00am 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 June 06, 2024 5:57am POST-OP EXAM June 06, 2024 2 :32pm LABWORK June 08, 2024 5 :00am CUSTODIAL LAB WORK June 11, 2024 5:00am LAB [...] 30am WOUND August 20, 2024 1:5 9pm CUSTODIAL LAB WORK August 27, 2024 4: 00am [...] chronic disease August 29 1:06pm Atherosclerosis of chemehuevi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 August 29, 2024 1:06pm Wound, open, foot August 29, 2024 1:06 pm 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 September 24, 2024 9:58am Chief Complaint Admit Date CUSTODIAL LAB WORK June 06, 2024 5:00am 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 June 06, 2024 5:57am POST-OP EXAM June 06, 2024 2 :32pm LABWORK June 08, 2024 5 :00am CUSTODIAL LAB WORK June 11, 2024 5:00am LAB [...] 30am WOUND August 20, 2024 1:5 9pm CUSTODIAL LAB WORK August 27, 2024 4: 00am [...] 2024 5:48pm Diabetic infection of right foot [id number] 5:48pm Osteomyelitis of right foot June 5:48pm [...] chronic disease August 29 1:06pm Atherosclerosis of che[place]vi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 [...] 30am WOUND August 20, 2024 1:5 9pm CUSTODIAL LAB WORK August 27, 2024 4: 00am [...] 5:48pm Diabetic infection of right foot Februar 2024 5:48pm Osteomyelitis of right foot June [...] chronic disease August 29 1:06pm Atherosclerosis of [place]vi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 [...] 30am WOUND August 20, 2024 1:5 9pm CUSTODIAL LAB WORK August 27, 2024 4: 00am [...] 5:00a m Remove hola/Amp 08/29/2024 October 03, 025 8:55am 2 WK FU October 17, 2024 10:05 am Reason for Visit Admit Date End stage renal disease July 02 12:56pm Acute hyperkalemia July 02, 2024 12:56pm Other acute osteomyelitis, right ankle a nd foot July 11, 2024 10:30am Other specified peripheral vascular dise ases July 11, 2024 10:30am End stage renal disease February 21st, 2 025 5:48pm MRSA bacteremia July 13, [...] chronic disease August 29 1:06pm Atherosclerosis of [place]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 [...] 30am WOUND August 20, 2024 1:5 9pm CUSTODIAL LAB WORK August 27, 2024 4: 00am WOUND August 27, 2024 8:23 am WOUND August 27, 2024 9:27 am RE-ADMISSION EXAM September 05, 2024 5:4 0pm LABWORK September 10, 2024 5:0 0am LABWORK September 12, 2024 5:0 0am CUSTODIAL LAB WORK September 17, 2024 4 :00am LABWORK September 24, 2024 5:00am WOUND September 24, 2024 9:58am WOUND September 24, 2024 11:01a m LABWORK October 02, 2024 5:00a m Remove hola/Amp 08/29/2024 October 03, 2 025 8:55am CUSTODIAL LAB WORK October 08, 2024 4:0 0am CUSTODIAL LAB WORK October 16, 2024 5:0 0am 2 WK FU October 17, 2024 10:05 am CUSTODIAL LAB WORK October 29, 2024 4:0 0am [...] chronic disease August 29 1:06pm Atherosclerosis of che[place]vi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 [...] 30am WOUND August 20, 2024 1:5 9pm CUSTODIAL LAB WORK August 27, 2024 4: 00am WOUND August 27, 2024 8:23 am WOUND August 27, 2024 9:27 am RE-ADMISSION EXAM September 05, 2024 5:4 0pm LABWORK September 10, 2024 5:0 0am LABWORK September 12, 2024 5:0 0am CUSTODIAL LAB WORK September 17, 2024 4 :00am LABWORK September 24, 2024 5:00am WOUND September 24, 2024 9:58am WOUND September 24, 2024 11:01a m LABWORK October 02, 2024 5:00a m Remove hola/Amp 08/29/2024 October 03, 2 025 8:55am CUSTODIAL LAB WORK October 08, 2024 4:0 0am CUSTODIAL LAB WORK October 16, 2024 5:0 0am 2 WK FU October 17, 2024 10:05 am CUSTODIAL LAB WORK October 22, 2024 5:0 0am CUSTODIAL LAB WORK October 29, 2024 4:0 0am [...] chronic disease August 29 1:06pm 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 [...] 30am WOUND August 20, 2024 1:5 9pm CUSTODIAL LAB WORK August 27, 2024 4: 00am WOUND August 27, 2024 8:23 am WOUND August 27, 2024 9:27 am RE-ADMISSION EXAM September 05, 2024 5:4 0pm LABWORK September 10, 2024 5:0 0am LABWORK September 12, 2024 5:0 0am CUSTODIAL LAB WORK September 17, 2024 4 :00am LABWORK September 24, 2024 5:00am WOUND September 24, 2024 9:58am WOUND September 24, 2024 11:01a m LABWORK October 02, 2024 5:00a m Remove hola/Amp 08/29/2024 October 03, 2 025 8:55am CUSTODIAL LAB WORK October 08, 2024 4:0 0am CUSTODIAL LAB WORK October 16, 2024 5:0 0am MONTHLY EXAM October 16, 2024 5:30p m 2 WK FU October 17, 2024 10:05 am CUSTODIAL LAB WORK October 22, 2024 5:0 0am CUSTODIAL LAB WORK October 29, 2024 4:0 0am [...] 30am WOUND August 20, 2024 1:5 9pm CUSTODIAL LAB WORK August 27, 2024 4: 00am WOUND August 27, 2024 8:23 am WOUND August 27, 2024 9:27 am RE-ADMISSION EXAM September 05, 2024 5:4 0pm LABWORK September 10, 2024 5:0 0am LABWORK September 12, 2024 5:0 0am CUSTODIAL LAB WORK September 17, 2024 4 :00am LABWORK September 24, 2024 5:00am WOUND September 24, 2024 9:58am WOUND September 24, 2024 11:01a m LABWORK October 02, 2024 5:00a m Remove hola/Amp 08/29/2024 October 03, 2 025 8:55am CUSTODIAL LAB WORK October 08, 2024 4:0 0am CUSTODIAL LAB WORK October 16, 2024 5:0 0am MONTHLY EXAM October 16, 2024 5:30p m 2 WK FU October 17, 2024 10:05 am CUSTODIAL LAB WORK October 22, 2024 5:0 0am CUSTODIAL LAB WORK October 29, 2024 4:0 0am 1 Y FU October 29, 2024 9:45a m MONTHLY EXAM November 02, 2024 5:00 pm LABWORK November 05, 2024 5:00 am fall November 08, 2024 7:35 pm CUSTODIAL LAB WORK November 12, 2024 5: 00am bradycardia November 22, 2024 8:44a m Chief Complaint Admit Date RE-ADMISSION EXAM September 05, 2024 5:4 0pm LABWORK September 10, 2024 5:0 0am LABWORK September 12, 2024 5:0 0am CUSTODIAL LAB WORK September 17, 2024 4 :00am LABWORK September 24, 2024 5:00am WOUND September 24, 2024 9:58am WOUND September 24, 2024 11:01a m LABWORK October 02, 2024 5:00a m Remove hola/Amp 08/29/2024 October 03, 2 025 8:55am CUSTODIAL LAB WORK October 08, 2024 4:0 0am CUSTODIAL LAB WORK October 16, 2024 5:0 0am MONTHLY EXAM October 16, 2024 5:30p m 2 WK FU October 17, 2024 10:05 am CUSTODIAL LAB WORK October 22, 2024 5:0 0am CUSTODIAL LAB WORK October 29, 2024 4:0 0am 1 Y FU October 29, 2024 9:45a m MONTHLY EXAM November 02, 2024 5:00 pm LABWORK November 05, 2024 5:00 am fall November 08, 2024 7:35 pm CUSTODIAL LAB WORK November 12, 2024 5: 00am bradycardia November 22, 2024 8:44a m NEW ENROLEE December 26, 2024 9:3 4am Reason for Visit Admit Date 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 August 29, 2024 1:06pm End stage renal disease August 29, 2024 1:06pm Anemia of chronic disease August 29 1:06pm 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 [...] 0am LABWORK September 12, 2024 5:0 0am CUSTODIAL LAB WORK September 17, 2024 4 :00am LABWORK September 24, 2024 5:00am WOUND September 24, 2024 9:58am WOUND September 24, 2024 11:01a m LABWORK October 02, 2024 5:00a m Remove hola/Amp 08/29/2024 October 03, 2 025 8:55am CUSTODIAL LAB WORK October 08, 2024 4:0 0am CUSTODIAL LAB WORK October 16, 2024 5:0 0am MONTHLY EXAM October 16, 2024 5:30p m 2 WK FU October 17, 2024 10:05 am CUSTODIAL LAB WORK October 22, 2024 5:0 0am CUSTODIAL LAB WORK October 29, 2024 4:0 0am 1 Y FU October 29, 2024 9:45a m MONTHLY EXAM November 02, 2024 5:00 pm LABWORK November 05, 2024 5:00 am fall November 08, 2024 7:35 pm CUSTODIAL LAB WORK November 12, 2024 5: 00am bradycardia November 22, 2024 8:44a m Re-admission exam November 30, 2024 5:02 pm CUSTODIAL LAB WORK December 12, 2024 5: 00am CUSTODIAL LAB WORK December 19, 2024 5: 00am Pacer Check Remote December 26, 2024 9:0 0am NEW ENROLEE December 26, 2024 9:3 4am Chief Complaint Admit Date RE-ADMISSION EXAM September 05, 2024 5:4 0pm LABWORK September 10, 2024 5:0 0am LABWORK September 12, 2024 5:0 0am CUSTODIAL LAB WORK September 17, 2024 4 :00am LABWORK September 24, 2024 5:00am WOUND September 24, 2024 9:58am WOUND September 24, 2024 11:01a m LABWORK October 02, 2024 5:00a m Remove hola/Amp 08/29/2024September 14, 2 025 8:55am CUSTODIAL LAB WORK October 08, 2024 4:0 0am CUSTODIAL LAB WORK October 16, 2024 5:0 0am MONTHLY EXAM October 16, 2024 5:30p m 2 WK FU October 17, 2024 10:05 am CUSTODIAL LAB WORK October 22, 2024 5:0 0am CUSTODIAL LAB WORK October 29, 2024 4:0 0am 1 Y FU October 29, 2024 9:45a m MONTHLY EXAM November 02, 2024 5:00 pm LABWORK November 05, 2024 5:00 am fall November 08, 2024 7:35 pm CUSTODIAL LAB WORK November 12, 2024 5: 00am bradycardia November 22, 2024 8:44a m Re-admission exam November 30, 2024 5:02 pm CUSTODIAL LAB WORK December 12, 2024 5: 00am CUSTODIAL LAB WORK December 19, 2024 5: 00am [...] October 02, 2024 5:00a m Remove hola/Amp 08/29/2024September 14, 2 025 8:55am CUSTODIAL LAB WORK October 08, 2024 4:0 0am CUSTODIAL LAB WORK October 16, 2024 5:0 0am MONTHLY EXAM October 16, 2024 5:30p m 2 WK FU October 17, 2024 10:05 am CUSTODIAL LAB WORK October 22, 2024 5:0 0am CUSTODIAL LAB WORK October 29, 2024 4:0 0am 1 Y FU October 29, 2024 9:45a m MONTHLY EXAM November 02, 2024 5:00 pm LABWORK November 05, 2024 5:00 am fall November 08, 2024 7:35 pm CUSTODIAL LAB WORK November 12, 2024 5: 00am bradycardia November 22, 2024 8:44a m Re-admission exam November 30, 2024 5:02 pm CUSTODIAL LAB WORK December 12, 2024 5: 00am CUSTODIAL LAB WORK December 19, 2024 5: 00am New Concern December 20, 2024 3:01 pm FOLLOW UP December 21, 2024 5:5 2pm CUSTODIAL LAB WORK December 24, 2024 5 :00am Pacer Check Remote December 26, 2024 9:0 0am NEW ENROLEE December 26, 2024 9:3 4am Chief Complaint Admit Date LABWORK October 02, 2024 5:00a m Remove hola/Amp 08/29/2024 October 03, 2 025 8:55am CUSTODIAL LAB WORK October 08, 2024 4:0 0am CUSTODIAL LAB WORK October 16, 2024 5:0 0am MONTHLY EXAM October 16, 2024 5:30p m 2 WK FU October 17, 2024 10:05 am CUSTODIAL LAB WORK October 22, 2024 5:0 0am CUSTODIAL LAB WORK October 29, 2024 4:0 0am 1 Y FU October 29, 2024 9:45a m MONTHLY EXAM November 02, 2024 5:00 pm LABWORK November 05, 2024 5:00 am fall November 08, 2024 7:35 pm CUSTODIAL LAB WORK November 12, 2024 5: 00am bradycardia November 22, 2024 8:44a m Re-admission exam November 30, 2024 5:02 pm CUSTODIAL LAB WORK December 12, 2024 5: 00am CUSTODIAL LAB WORK December 19, 2024 5: 00am New Concern December 20, 2024 3:01 pm FOLLOW UP December 21, 2024 5:5 2pm CUSTODIAL LAB WORK December 24, 2024 5 :00am [...] January 25, 2025 5:56pm Current use of mcc anticoagulation January 25, 2025 5:56pm End stage renal disease January 25, 2 025 5:56pm Fall January 25, 2025 5:56pm Chief Complaint Admit Date LABWORK October 02, 2024 5:00a m Remove hola/Amp 08/29/2024 October 03, 2 025 8:55am CUSTODIAL LAB WORK October 08, 2024 4:0 0am CUSTODIAL LAB WORK October 16, 2024 5:0 0am MONTHLY EXAM October 16, 2024 5:30p m 2 WK FU October 17, 2024 10:05 am CUSTODIAL LAB WORK Nuris 2nd, 2025 5:0 0am CUSTODIAL LAB WORK October 29, 2024 4:0 0am 1 Y FU October 29, 2024 9:45a m MONTHLY EXAM November 02, 2024 5:00 pm LABWORK November 05, 2024 5:00 am fall November 08, 2024 7:35 pm CUSTODIAL LAB WORK November 12, 2024 5: 00am bradycardia November 22, 2024 8:44a m Re-admission exam November 30, 2024 5:02 pm CUSTODIAL LAB WORK December 12, 2024 5: 00am CUSTODIAL LAB WORK December 19, 2024 5: 00am New Concern December 20, 2024 3:01 pm FOLLOW UP December 21, 2024 5:5 2pm CUSTODIAL LAB WORK December 24, 2024 5 :00am Pacer Check Remote December 26, 2024 9:0 0am NEW ENROLEE December 26, 2024 9:3 4am fell and rt hip pain. unable to ambulate January 25, 2025 4:44pm RIGHT INTRATROCHANTERIC FRACTURE Septemb er 2024 5:56pm RIGHT INTRATROCHANTERIC FRACTURE Septemb er 2024 11:03am RIGHT INTRATROCHANTERIC FRACTURE Septemb er 2024 4:14pm RIGHT INTRATROCHANTERIC FRACTURE Septemb er 2024 6:41am RIGHT INTRATROCHANTERIC FRACTURE Septemb er 2024 11:26am RIGHT INTRATROCHANTERIC FRACTURE Septemb er 2024 10:45am RIGHT INTRATROCHANTERIC FRACTURE Septemb er 2024 9:51am Reason for Visit Admit Date Amputation of [...] January 25, 2025 5:56pm Current use of mcc anticoagulation January 25, 2025 5:56pm End stage renal disease January 25, 2 025 5:56pm Fall January 25, 2025 5:56pm Anemia of chronic disease January 25, 2025 5:56pm Chief Complaint Admit Date CUSTODIAL LAB WORK October 29, 2024 4:0 0am 1 Y FU October 29, 2024 9:45a m MONTHLY EXAM November 02, 2024 5:00 pm LABWORK November 05, 2024 5:00 am fall November 08, 2024 7:35 pm CUSTODIAL LAB WORK November 12, 2024 5: 00am bradycardia November 22, 2024 8:44a m Re-admission exam November 30, 2024 5:02 pm CUSTODIAL LAB WORK December 12, 2024 5: 00am CUSTODIAL LAB WORK December 19, 2024 5: 00am New Concern December 20, 2024 3:01 pm FOLLOW UP December 21, 2024 5:5 2pm CUSTODIAL LAB WORK December 24, 2024 5 :00am Pacer Check Remote December 26, 2024 9:0 0am NEW ENROLEE December 26, 2024 9:3 4am CUSTODIAL LAB WORK January 23 5:00am fell and rt hip pain. unable to ambulate January 25, 2025 4:44pm RIGHT INTRATROCHANTERIC FRACTURE Septemb er 2024 5:56pm RIGHT INTRATROCHANTERIC FRACTURE Septemb er 2024 11:03am RIGHT INTRATROCHANTERIC FRACTURE Septemb er 2024 4:14pm RIGHT INTRATROCHANTERIC FRACTURE Septemb er 2024 6:41am RIGHT INTRATROCHANTERIC FRACTURE Septemb er 2024 11:26am RIGHT INTRATROCHANTERIC FRACTURE Septemb er 2024 10:45am RIGHT INTRATROCHANTERIC FRACTURE Septemb er 2024 9:51am LABOWRK February 01, 2025 5:00am CUSTODIAL LAB WORK February 07 4:00am CUSTODIAL LAB WORK So 23rd, 20 25 4:30am RIGHT HIP February 15, 2025 9:54am Room 1 February 15, 2025 10:12am Reason for Visit Admit Date Chronic diastolic (congestive) heart esequiel lure October [...] January 25, 2025 5:56pm Current use of oil heaterman anticoagulation January 25, 2025 5:56pm End stage renal disease January 25, 025 5:56pm Fall January 25, 2025 5:56pm Anemia of chronic disease January 25, 2025 5:56pm Closed hip fracture February 15, 2025 9:54am Chief Complaint Admit Date bradycardia November 22, 2024 8:44a m Re-admission exam November 30, 2024 5:02 pm CUSTODIAL LAB WORK December 12, 2024 5: 00am CUSTODIAL LAB WORK December 19, 2024 5: 00am New Concern December 20, 2024 3:01 pm FOLLOW UP December 21, 2024 5:5 2pm CUSTODIAL LAB WORK December 24, 2024 5 :00am Pacer Check Remote December 26, 2024 9:0 0am NEW ENROLEE December 26, 2024 9:3 4am CUSTODIAL LAB WORK January 23 5:00am fell and rt hip pain. 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 January 2:45pm LABOWRK February 01, 2025 5:00am CUSTODIAL LAB WORK February 07 4:00am CUSTODIAL LAB WORK February 12 4:30am CUSTODIAL LAB WORK February 14 5:00am RIGHT HIP February 15, 2025 9:54am Room 1 February 15, 2025 10:12am Pacer Check Remote February 25, 2025 5: 42pm Reason for Visit Admit Date 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 December 26, 2024 9:34am Paroxysmal atrial fibrillation December 9:34am Presence of leadless cardiac pacemaker A ugust 2024 9:34am Sinus bradycardia December 26, 2024 9:3 4am Closed hip fracture January 25, 2025 5:56pm Closed right hip fracture January 25, 2025 5:56pm Current use of mcc anticoagulation January 25, 2025 5:56pm End stage renal disease January 25 025 5:56pm Fall January 25, 2025 5:56pm Anemia of chronic disease January 25, 2025 5:56pm Closed hip fracture February 15, 2025 9:54am Family History Relationship Condition Age at Onset Recorded Date/T laila mother Hypertension Unknown father Diabetes mellitus Unknown Chronic obstructive pulmonary disease Unk nown Advance Directives Documents on File Type Date Recorded Patient Almond Blancher Expl anation Advance Directive(s) 07/03/2024 11:50 AM Date Activated Date Inactivated Comments 11/23/2024 5:43 AM 11/28/2024 2:55 PM Question Answer Comments Full Code Order Discussed With: Patient Advance Directive Response Recorded Date/ Time Advance Directives on File No November 06, 2021 9:22am Name of Medical Power of Locker Room Attendant Arian Thompson November 06, 2021 9:22am Advance Directives Yes November 06 9:22am Living Will Yes November 06, 2021 9:22am Power of Locker Room Attendant Yes November 06 9:22am Advance Directive Response Recorded Date/ Time Living Will Yes July 02 2:52pm Do you have a Healthcare Pow er of Locker Room Attendant? Yes February 10th, 2025 2:52pm Name of Medical Power of Locker Room Attendant RADHA GATES July 02, 2024 2:52pm Living Will Yes July 03 3:50pm Do you have a Healthcare Pow er of Locker Room Attendant? Yes July 03, 2024 3:50pm Name of Medical Power of Locker Room Attendant jacinda gates July 03, 2024 3:50pm Living Will Yes July 07 7:28pm Do you have a Healthcare Pow er of Locker Room Attendant? Yes July 07, 2024 7:28pm Name of Medical Power of Locker Room Attendant maurice gates- daughter July 07, 2024 7:28pm Living Will Yes July 13 7:33pm Do you have a Healthcare Pow er of Locker Room Attendant? Yes July 13, 2024 7:33pm Name of Medical Power of Locker Room Attendant Jacinda avila July 13, 2024 7:33pm Living Will Yes August 28, 2024 8:57am Do you have a Healthcare Pow er of Locker Room Attendant? Yes August 28, 2024 8:57am Name of Medical Power of Locker Room Attendant RADHA GATES August 28, 2024 8:57am Living Will No June 04 2:32pm Do you have a Healthcare Pow er of Locker Room Attendant? No June 04, 2024 2:32pm Living Will Yes August 01, 2024 1:12pm Do you have a Healthcare Pow er of Locker Room Attendant? Yes August 01, 2024 1:12pm Name of Medical Power of Locker Room Attendant Jacinda Gates - dg August 01, 2024 1:12pm Advance Directives Yes April 11:29am Advance Directive Response Recorded Date/ Time Living Will Yes July 02 2:52pm Do you have a Healthcare Pow er of Locker Room Attendant? Yes July 02, 2024 2:52pm Name of Medical Power of Locker Room Attendant RADHA GATES July 02, 2024 2:52pm Living Will Yes July 03 3:50pm Do you have a Healthcare Pow er of Locker Room Attendant? Yes July 03, 2024 3:50pm Name of Medical Power of Locker Room Attendant jacinda gates July 03, 2024 3:50pm Living Will Yes July 07 7:28pm Do you have a Healthcare Pow er of Locker Room Attendant? Yes July 07, 2024 7:28pm Name of Medical Power of Locker Room Attendant maurice gates- francisco July 07, 2024 7:28pm Living Will Yes July 13 025 7:33pm Do you have a Healthcare Pow er of Locker Room Attendant? Yes July 13, 2024 7:33pm Name of Medical Power of Locker Room Attendant Jacinda avila July 13, 2024 7:33pm Living Will Yes August 28, 2024 8:57am Do you have a Healthcare Pow er of Locker Room Attendant? Yes August 28, 2024 8:57am Name of Medical Power of Locker Room Attendant RADHA GATES August 28, 2024 8:57am Living Will Yes August 01, 2024 1:12pm Do you have a Healthcare Pow er of Locker Room Attendant? Yes August 01, 2024 1:12pm Name of Medical Power of Locker Room Attendant Jacinda Gates - [email or web address] August 01, 2024 1:12pm Advance Directives Yes April 11:29am Advance Directive Response Recorded Date/ Time Living Will Yes November 06, 2021 9:22am Do you have a Healthcare Pow er of Locker Room Attendant? Yes November 06, 2021 9:22am Living Will Yes July 13 7:33pm Do you have a Healthcare Pow er of Locker Room Attendant? Yes July 13, 2024 7:33pm Name of Medical Power of Locker Room Attendant Jacinda avila July 13, 2024 7:33pm Living Will Yes August 28, 2024 8:57am Do you have a Healthcare Pow er of Locker Room Attendant? Yes August 28, 2024 8:57am Name of Medical Power of Locker Room Attendant RADHA GATES August 28, 2024 8:57am Do you have a Healthcare Pow er of Locker Room Attendant? No November 08, 2024 7:39pm Living Will Yes August 01, 2024 1:12pm Do you have a Healthcare Pow er of Locker Room Attendant? Yes August 01, 2024 1:12pm Name of Medical Power of Locker Room Attendant Jacinda Gates - [email or web address] August 01, 2024 1:12pm Advance Directives Yes April 11:29am Advance Directive Response Recorded Date/ Time Living Will Yes November 06, 2021 9:22am Do you have a Healthcare Pow er of Locker Room Attendant? Yes November 06, 2021 9:22am Living Will Yes August 28, 2024 8:57am Do you have a Healthcare Pow er of Locker Room Attendant? Yes August 28, 2024 8:57am Name of Medical Power of Locker Room Attendant RADHA GATES August 28, 2024 8:57am Do you have a Healthcare Pow er of Locker Room Attendant? No November 08, 2024 7:39pm Do you have a Healthcare Pow er of Locker Room Attendant? Yes November 22, 2024 12:42pm Living Will Yes August 01, 2024 1:12pm Do you have a Healthcare Pow er of Locker Room Attendant? Yes August 01, 2024 1:12pm Name of Medical Power of Locker Room Attendant Jacinda Gates - dght August 01, 2024 1:12pm Advance Directives Yes April 11:29am Advance Directive Response Recorded Date/ Time Living Will Yes November 06, 2021 9:22am Do you have a Healthcare Power of Locker Room Attendant? Yes November 06, 2021 9:22am Living Will Yes August 28, 2024 8:57am Do you have a Healthcare Power of Locker Room Attendant? Yes August 28, 2024 8:57am Name of Medical Power of Locker Room Attendant RADHA GATES August 28, 2024 8:57am Do you have a Healthcare Power of Locker Room Attendant? No November 08, 2024 7:39pm Do you have a Healthcare Power of Locker Room Attendant? Yes November 22, 2024 12:42pm Advance Directives Yes April 11:29am Advance Directive Response Recorded Date/ Time Living Will Yes November 06, 2021 9:22am Do you have a Healthcare Power of Locker Room Attendant? Yes November 06, 2021 9:22am Do you have a Healthcare Power of Locker Room Attendant? No November 08, 2024 7:39pm Do you have a Healthcare Power of Locker Room Attendant? Yes November 22, 2024 12:42pm Advance Directives Yes April 11:29am Advance Directive Response Recorded Date/ Time Living Will Yes November 06, 2021 9:22am Do you have a Healthcare Power of Locker Room Attendant? Yes November 06, 2021 9:22am Do you have a Healthcare Power of Locker Room Attendant? No November 08, 2024 7:39pm Do you have a Healthcare Power of Locker Room Attendant? Yes November 22, 2024 12:42pm Do you have a Healthcare Power of Locker Room Attendant? Yes January 25, 2025 4:27pm Advance Directives Yes April 11:29am Advance Directive Response Recorded Date/ Time Living Will Yes November 06, 2021 9:22am Do you have a Healthcare Power of Locker Room Attendant? Yes November 06, 2021 9:22am Do you have a Healthcare Power of Locker Room Attendant? No November 08, 2024 7:39pm Do you have a Healthcare Power of Locker Room Attendant? Yes November 22, 2024 12:42pm Do you have a Healthcare Power of Locker Room Attendant? Yes January 25, 2025 6:43pm Advance Directives Yes April 11:29am Advance Directive Response Recorded Date/ Time Advance Directives Yes March 08, 2025 10:50am Do you have a Healthcare Power of Locker Room Attendant? Yes November 22, 2024 12:42pm Do you have a Healthcare Power of Locker Room Attendant? Yes January 25, 2025 6:43pm Reason for Referral Specialty Diagnoses / Procedures Referred By Tay t Referred To Contact Diagnoses 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 edema, without long-term current use of insulin ([facility]) Lauren Arzola APRN.RADIOLOGIC TECHNOLOGY PROGRAM DIRECTOR [address] [place] [address] Referral ID Status Reason Start Date Expiration Date V isits Requested Visits Authorized [id number] Pending Review 1 1 Referral ID Status Reason Start Date Expiration Date Visits Re quested Visits Authorized [id number] Closed 1 1 Specialty Diagnoses / Procedures Referred By Tay t Referred To Contact Diagnoses 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, without long-term current use of insulin ([facility]) Lauren Arzola APRN.RADIOLOGIC TECHNOLOGY PROGRAM DIRECTOR [address] [place] [address] Referral ID Status Reason Start Date Expiration Date V isits Requested Visits Authorized [id number] Authorized 1 1 Summary Purpose Additional Source Comments Source Comments (unrecognize d section and content) In the event this informatio n is protected by the Federal Confidentiality of Alcohol and Drug Abuse Patient Records regulations: The Federal rules restrict any use of the information to criminally investigate or prosecute any alcohol or drug abuse patient.[facility] the event this information is protected by the Federal Confidentiality of Alcohol and Drug Abuse Patient Records regulations: The Federal rules restrict any use of the information to criminally investigate or prosecute any alcohol or drug abuse patient.[facility] CenterIn the event this information is protected by the Federal Confidentiality of Alcohol and Drug Abuse Patient Records regulations: The Federal rules restrict any use of the information to criminally investigate or prosecute any alcohol or drug abuse patient.[facility] CenterIn the event this information is protected by the Federal Confidentiality of Alcohol and Drug Abuse Patient Records regulations: The Federal rules restrict any use of the information to criminally investigate or prosecute any alcohol or drug abuse patient.[facility] CenterIn the event this information is protected by the Federal Confidentiality of Alcohol and Drug Abuse Patient Records regulations: The Federal rules restrict any use of the information to criminally investigate or prosecute any alcohol or drug abuse patient.[facility] CenterIn the event this information is protected by the Federal Confidentiality of Alcohol and Drug Abuse Patient Records regulations: The Federal rules restrict any use of the information to criminally investigate or prosecute any alcohol or drug abuse patient.[facility] CenterIn the event this information is protected by the Federal Confidentiality of Alcohol and Drug Abuse Patient Records regulations: The Federal rules restrict any use of the information to criminally investigate or prosecute any alcohol or drug abuse patient.[facility] CenterIn the event this information is protected by the Federal Confidentiality of Alcohol and Drug Abuse Patient Records regulations: The Federal rules restrict any use of the information to criminally investigate or prosecute any alcohol or drug abuse patient.[facility] CenterIn the event this information is protected by the Federal Confidentiality of Alcohol and Drug Abuse Patient Records regulations: The Federal rules restrict any use of the information to criminally investigate or prosecute any alcohol or drug abuse patient.[facility] CenterIn the event this information is protected by the Federal Confidentiality of Alcohol and Drug Abuse Patient Records regulations: The Federal rules restrict any use of the information to criminally investigate or prosecute any alcohol or drug abuse patient.[facility] CenterIn the event this information is protected by the Federal Confidentiality of Alcohol and Drug Abuse Patient Records regulations: The Federal rules restrict any use of the information to criminally investigate or prosecute any alcohol or drug abuse patient.[facility] CenterIn the event this information is protected by the Federal Confidentiality of Alcohol and Drug Abuse Patient Records regulations: The Federal rules restrict any use of the information to criminally investigate or prosecute any alcohol or drug abuse patient.[facility] CenterIn the event this information is protected by the Federal Confidentiality of Alcohol and Drug Abuse Patient Records regulations: The Federal rules restrict any use of the information to criminally investigate or prosecute any alcohol or drug abuse patient.[facility] CenterIn the event this information is protected by the Federal Confidentiality of Alcohol and Drug Abuse Patient Records regulations: The Federal rules restrict any use of the information to criminally investigate or prosecute any alcohol or drug abuse patient.[facility] CenterIn the event this information is protected by the Federal Confidentiality of Alcohol and Drug Abuse Patient Records regulations: The Federal rules restrict any use of the information to criminally investigate or prosecute any alcohol or drug abuse patient.[facility] CenterIn the event this information is protected by the Federal Confidentiality of Alcohol and Drug Abuse Patient Records regulations: The Federal rules restrict any use of the information to criminally investigate or prosecute any alcohol or drug abuse patient.[facility] CenterIn the event this information is protected by the Federal Confidentiality of Alcohol and Drug Abuse Patient Records regulations: The Federal rules restrict any use of the information to criminally investigate or prosecute any alcohol or drug abuse patient.[facility] CenterIn the event this information is protected by the Federal Confidentiality of Alcohol and Drug Abuse Patient Records regulations: The Federal rules restrict any use of the information to criminally investigate or prosecute any alcohol or drug abuse patient.[facility] CenterIn the event this information is protected by the Federal Confidentiality of Alcohol and Drug Abuse Patient Records regulations: The Federal rules restrict any use of the information to criminally investigate or prosecute any alcohol or drug abuse patient.[facility] CenterIn the event this information is protected by the Federal Confidentiality of Alcohol and Drug Abuse Patient Records regulations: The Federal rules restrict any use of the information to criminally investigate or prosecute any alcohol or drug abuse patient.[facility] CenterIn the event this information is protected by the Federal Confidentiality of Alcohol and Drug Abuse Patient Records regulations: The Federal rules restrict any use of the information to criminally investigate or prosecute any alcohol or drug abuse patient.[facility] CenterIn the event this information is protected by the Federal Confidentiality of Alcohol and Drug Abuse Patient Records regulations: The Federal rules restrict any use of the information to criminally investigate or prosecute any alcohol or drug abuse patient.[facility] CenterIn the event this information is protected by the Federal Confidentiality of Alcohol and Drug Abuse Patient Records regulations: The Federal rules restrict any use of the information to criminally investigate or prosecute any alcohol or drug abuse patient.[facility] CenterIn the event this information is protected by the Federal Confidentiality of Alcohol and Drug Abuse Patient Records regulations: The Federal rules restrict any use of the information to criminally investigate or prosecute any alcohol or drug abuse patient.[facility] CenterIn the event this information is protected by the Federal Confidentiality of Alcohol and Drug Abuse Patient Records regulations: The Federal rules restrict any use of the information to criminally investigate or prosecute any alcohol or drug abuse patient.[facility] CenterIn the event this information is protected by the Federal Confidentiality of Alcohol and Drug Abuse Patient Records regulations: The Federal rules restrict any use of the information to criminally investigate or prosecute any alcohol or drug abuse patient.[facility] CenterIn the event this information is protected by the Federal Confidentiality of Alcohol and Drug Abuse Patient Records regulations: The Federal rules restrict any use of the information to criminally investigate or prosecute any alcohol or drug abuse patient.[facility] CenterIn the event this information is protected by the Federal Confidentiality of Alcohol and Drug Abuse Patient Records regulations: The Federal rules restrict any use of the information to criminally investigate or prosecute any alcohol or drug abuse patient.[facility] CenterIn the event this information is protected by the Federal Confidentiality of Alcohol and Drug Abuse Patient Records regulations: The Federal rules restrict any use of the information to criminally investigate or prosecute any alcohol or drug abuse patient.[facility] CenterIn the event this information is protected by the Federal Confidentiality of Alcohol and Drug Abuse Patient Records regulations: The Federal rules restrict any use of the information to criminally investigate or prosecute any alcohol or drug abuse patient.[facility] CenterIn the event this information is protected by the Federal Confidentiality of Alcohol and Drug Abuse Patient Records regulations: The Federal rules restrict any use of the information to criminally investigate or prosecute any alcohol or drug abuse patient.[facility] CenterIn the event this information is protected by the Federal Confidentiality of Alcohol and Drug Abuse Patient Records regulations: The Federal rules restrict any use of the information to criminally investigate or prosecute any alcohol or drug abuse patient.[facility] CenterIn the event this information is protected by the Federal Confidentiality of Alcohol and Drug Abuse Patient Records regulations: The Federal rules restrict any use of the information to criminally investigate or prosecute any alcohol or drug abuse patient.[facility] CenterIn the event this information is protected by the Federal Confidentiality of Alcohol and Drug Abuse Patient Records regulations: The Federal rules restrict any use of the information to criminally investigate or prosecute any alcohol or drug abuse patient.[facility] CenterIn the event this information is protected by the Federal Confidentiality of Alcohol and Drug Abuse Patient Records regulations: The Federal rules restrict any use of the information to criminally investigate or prosecute any alcohol or drug abuse patient.[facility] CenterIn the event this information is protected by the Federal Confidentiality of Alcohol and Drug Abuse Patient Records regulations: The Federal rules restrict any use of the information to criminally investigate or prosecute any alcohol or drug abuse patient.[facility] CenterIn the event this information is protected by the Federal Confidentiality of Alcohol and Drug Abuse Patient Records regulations: The Federal rules restrict any use of the information to criminally investigate or prosecute any alcohol or drug abuse patient.[facility] CenterIn the event this information is protected by the Federal Confidentiality of Alcohol and Drug Abuse Patient Records regulations: The Federal rules restrict any use of the information to criminally investigate or prosecute any alcohol or drug abuse patient.[facility] Reason for Visit (unrecogniz ed [...] Authorization Reason Comments Medication Problem Reason Comments [facility] requesting recor ds Reason Comments Established Patient Follow Up Diabetic Foot Care Reason Onset Date Comments Refill Request 07/12/2023 Reason Onset Date Comments Refill Request 07/28/2023 Reason Comments Medication Problem Freestyle toirbio 14 d ay sensor kit - patient's [...] End: July 13, 2024 Meredith Guevara NP, BUS ATTENDANT-C Attending Provider Active Start: July 13, 2024 [...] Provider Active Start: July 16, 2024 Dr. uJan Antonio Holden MD Other Provider Active Sta [...] 2024 End: July 31, 2024 Meredith Guevara BUS ATTENDANT, BUS ATTENDANT-C Attending Provider Active Start: July 31, 2024 End: July 31, 2024 Team Status: Inactive Member Role Status Dates Dr. Nando Wiggins MD Primary Care Provider Active Start: August 01, 2024 End: August 01, 2024 Meredith Guevara BUS ATTENDANT, BUS ATTENDANT-C Attending Provider Active Start: August 01, 2024 [...] Active Start : August 30, 2024 Dr. Eral White MD Referring Provider Active S tart: [...] Status: Active Member Role Status Dates Dr. Nanod Wiggins MD Primary [...] 2024 End: September 05, 2024 Meredith Guevara BUS ATTENDANT, BUS ATTENDANT-C Attending Provider Active Start: September 05, 2024 [...] End: October 29, 2024 Pooja Ruano NP, BUS ATTENDANT-C Attending Provider Active Start: October 29, 2024 [...] 2024 End: July 02, 2024 Meredith Guevara NP BUS ATTENDANT-C Attending Provider Active Start: July 02, 2024 [...] 2024 End: July 10, 2024 Meredith Guevara NP BUS ATTENDANT-C Attending Provider Active Start: July 10, 2024 [...] Attending Provider Active Start: October 08, 2024 Revenue Enforcement Agent Relationship Specialty Start Date End Date Husam Yan MD [address] [place] [address] PCP - General Family Practice 10/14/16 Revenue Enforcement Agent Relationship Specialty Start Date End Date Husam Yan MD [address] [place] [address] PCP - General Family Practice 10/14/16 Revenue Enforcement Agent Relationship Specialty Start Date End Date Husam Yan MD [address] [place] [address] PCP - General Family Practice 10/14/16 Revenue Enforcement Agent Relationship Specialty Start Date End Date Husam Yan MD [address] [place] [address] PCP - General Family Practice 10/14/16 Revenue Enforcement Agent Relationship Specialty Start Date End Date Husam Yan MD [address] [place] [address] PCP - General Family Medicine 10/14/16 Revenue Enforcement Agent Relationship Specialty Start Date End Date Husam Yan MD [address] [facility] [place] [address] PCP - General Family Medicine 10/14/16 Revenue Enforcement Agent Relationship Specialty Start Date End Date Husam Yan MD [address] [facility] [place] [address] PCP - General Family Medicine 10/14/16 Revenue Enforcement Agent Relationship Specialty Start Date End Date Husam Yan MD [address] [facility] [place] [address] PCP - General Family Medicine 10/14/16 Revenue Enforcement Agent Relationship Specialty Start Date End Date Husam Yan MD [address] [facility] [place] [address] PCP - General Family Medicine 10/14/16 Revenue Enforcement Agent Relationship Specialty Start Date End Date Husam Yan MD [address] [facility] [place] [address] PCP - General Family Medicine 10/14/16 Revenue Enforcement Agent Relationship Specialty Start Date End Date Husam Yan MD [address] [facility] [place] [address] PCP - General Family Medicine 10/14/16 Revenue Enforcement Agent Relationship Specialty Start Date End Date Husam Yan MD [address] [facility] [place] [address] PCP - General Family Medicine 10/14/16 Revenue Enforcement Agent Relationship Specialty Start Date End Date Husam Yan MD [address] [facility] [place] [address] PCP - General Family Medicine 10/14/16 Revenue Enforcement Agent Relationship Specialty Start Date End Date Husam Yan MD [address] [facility] [place] [address] PCP - General Family Medicine 10/14/16 Revenue Enforcement Agent Relationship Specialty Start Date End Date Husam Yan MD [address] [facility] [place] [address] PCP - General Family Medicine 10/14/16 Revenue Enforcement Agent Relationship Specialty Start Date End Date Husam Yan MD [address] [facility] [place] [address] PCP - General Family Medicine 10/14/16 Revenue Enforcement Agent Relationship Specialty Start Date End Date Husam Yan MD [address] [facility] [place] [address] PCP - General Family Medicine 10/14/16 Revenue Enforcement Agent Relationship Specialty Start Date End Date Husam Yan MD [address] [facility] [place] [address] PCP - General Family Medicine 10/14/16 Revenue Enforcement Agent Relationship Specialty Start Date End Date Husam Yan MD [address] [facility] [place] [address] PCP - General Family Medicine 10/14/16 Revenue Enforcement Agent Relationship Specialty Start Date End Date Husam Yan MD [address] [facility] [place] [address] PCP - General Family Medicine 10/14/16 Revenue Enforcement Agent Relationship Specialty Start Date End Date Husam Yan MD [address] [facility] [place] [address] PCP - General Family Medicine 10/14/16 Revenue Enforcement Agent Relationship Specialty Start Date End Date Husam Yan MD [address] [place] [address] PCP - General Family Medicine 10/14/16 Revenue Enforcement Agent Relationship Specialty Start Date End Date Husam Yan MD [address] [place] [address] PCP - General Family Medicine 10/14/16 Revenue Enforcement Agent Relationship Specialty Start Date End Date Husam Yan MD [address] [place] [address] PCP - General Family Medicine 10/14/16 Revenue Enforcement Agent Relationship Specialty Start Date End Date Husam Yan MD [address] [place] [address] PCP - General Family Medicine 10/14/16 Podlogar, Lauren, ELICIA.RADIOLOGIC TECHNOLOGY PROGRAM DIRECTOR [address] [place] [address] [employer] 04/28/24 Revenue Enforcement Agent Relationship Specialty Start Date End Date Husam Yan MD [address] [place] [address] PCP - General Family Medicine 10/14/16 Podlogar, Lauren, JUDICIAL ASSISTANT.RADIOLOGIC TECHNOLOGY PROGRAM DIRECTOR [address] [place] [address] [employer] 04/28/24 Revenue Enforcement Agent Relationship Specialty Start Date End Date Husam Yan MD [address] [place] [address] PCP - General Family Medicine 10/14/16 PodLauren johnson APRN.RADIOLOGIC TECHNOLOGY PROGRAM DIRECTOR [address] [place] [address] [facility] 04/28/24 Team Status: Inactive Member [...] 2024 End: June 06, 2024 Meredith Guevara BUS ATTENDANT, BUS ATTENDANT-C Attending Provider Active Start: June 06, 2024 [...] 2024 End: July 31, 2024 Meredith Guevara BUS ATTENDANT, BUS ATTENDANT-C Attending Provider Active Start: July 31, 2024 End: July 31, 2024 Team Status: Inactive Member Role/Relationship Status Dates Dr. Nando Wiggins MD Primary Care Provider Active Start: August 01, 2024 End: August 01, 2024 Meredith Guevara BUS ATTENDANT, BUS ATTENDANT-C Attending Provider Active Start: August 01, 2024 [...] Provider Active Start: August 13, 2024 Dr. Radnal Damico MD Attending Provider Active Start: August [...] Active Star t: August 30, 2024 Dr. Manule Alva MD Other Provider Active Start: August [...] End: September 05, 2024 Meredith Guevara NP, BUS ATTENDANT-C Attending Provider Active Start: September 05, 2024 [...] Provider Active Start: October 08, 2024 Nando SHEROWOD MD Referring Provider Active Start: October 08, [...] End: October 29, 2024 Pooja Ruano NP, BUS ATTENDANT-C Attending Provider Active Start: October 29, 2024 [...] 2024 End: November 23, 2024 Dr. Earl Desai DO Emergency Provider Active Start: November [...] Active Start: August 31, 2024 Dr. Earl Whtie MD Admit Provider Active Start : August [...] End: September 05, 2024 Meredith Guevara NP, BUS ATTENDANT-C Attending Provider Active Start: September 05, 2024 [...] End: October 29, 2024 Pooja Ruano NP, BUS ATTENDANT-C Attending Provider Active Start: October 29, 2024 [...] 2024 End: November 23, 2024 Dr. Earl Desai DO Attending Provider Active Start: November 22, 2024 End: November 23, 2024 Dr. Earl Desai DO Emergency Provider Active Start: November 22, 2024 End: November 23, 2024 Team Status: Inactive Member Role/Relationship Status Dates Dr. Nando Wiggins MD Primary Care Provider Active Start: November 02, 2024 End: November 02, 2024 Meredith Guevara NP, BUS ATTENDANT-C Attending Provider Active Start: November 02, 2024 [...] 2024 End: November 23, 2024 Dr. Earl Desai DO Attending Provider Active Start: November 22, 2024 End: November 23, 2024 Dr. Earl Desai DO Emergency Provider Active Start: November 22, 2024 End: November 23, 2024 Revenue Enforcement Agent Relationship Specialty Start Date End Date Husam Yan MD [address] [place], [place] [id number] PCP - General Family Medicine 10/14/16 PodlogarLauren JUDICIAL ASSISTANT.RADIOLOGIC TECHNOLOGY PROGRAM DIRECTOR [address] [place], [place] [id number] [facility] 04/28/24 Yesenia Yi APRN.RADIOLOGIC TECHNOLOGY PROGRAM DIRECTOR [address] [place], [place] [id number] [facility] 11/01/24 Team Status: Active Member Role/Relationship Status [...] Active Start : September 01, 2024 Dr. Randla Damico MD Other Provider Active Star t: [...] End: September 05, 2024 Meredith Guevara NP, BUS ATTENDANT-C Attending Provider Active Start: September 05, 2024 [...] 2024 End: October 29, 2024 Pooja Ruano BUS ATTENDANT, BUS ATTENDANT-C Attending Provider Active Start: October 29, 2024 End: October 29, 2024 Dr. Nando Wiggins MD Primary Care Provider Active Start: October 29, 2024 End: October 29, 2024 Team Status: Inactive Member Role/Relationship Status Dates Dr. Nando Wiggins MD Primary Care Provider Active Start: November 02, 2024 End: November 02, 2024 Meredith Guevara BUS ATTENDANT, BUS ATTENDANT-C Attending Provider Active Start: November 02, 2024 [...] 2024 End: November 23, 2024 Dr. Earl Desai DO Attending Provider Active Start: November 22, 2024 End: November 23, 2024 Dr. Earl Desai DO Emergency Provider Active Start: November [...] 2024 End: September 05, 2024 Meredith Guevara BUS ATTENDANT, BUS ATTENDANT-C Attending Provider Active Start: September 05, 2024 [...] End: October 29, 2024 Pooja Ruano NP, BUS ATTENDANT-C Attending Provider Active Start: October 29, 2024 End: October 29, 2024 Dr. Nando Wiggins MD Primary Care Provider Active Start: October 29, 2024 End: October 29, 2024 Team Status: Inactive Member Role/Relationship Status Dates Dr. Nando Wiggins MD Primary Care Provider Active Start: November 02, 2024 End: November 02, 2024 Meredith Guevara BUS ATTENDANT, BUS ATTENDANT-C Attending Provider Active Start: November 02, 2024 [...] 2024 End: November 23, 2024 Dr. Earl Desai DO Attending Provider Active Start: November 22, 2024 End: November 23, 2024 Dr. Earl Desai DO Emergency Provider Active Start: November 22, 2024 End: November 23, 2024 Team Status: Inactive Member Role/Relationship Status Dates Dr. Nando Wiggins MD Primary Care Provider Active Start: November 30, 2024 End: November 30, 2024 Meredith Guevara BUS ATTENDANT, BUS ATTENDANT-C Attending Provider Active Start: November 30, 2024 [...] 2024 End: December 20, 2024 Meredith Guevara BUS ATTENDANT, BUS ATTENDANT-C Attending Provider Active Start: December 20, 2024 [...] 2024 End: September 05, 2024 Meredith Guevara BUS ATTENDANT, BUS ATTENDANT-C Attending Provider Active Start: September 05, 2024 [...] 2024 End: October 29, 2024 Pooja Ruano BUS ATTENDANT, BUS ATTENDANT-C Attending Provider Active Start: October 29, 2024 End: October 29, 2024 Dr. Nando Wiggins MD Primary Care Provider Active Start: October 29, 2024 End: October 29, 2024 Team Status: Inactive Member Role/Relationship Status Dates Dr. Nando Wiggins MD Primary Care Provider Active Start: November 02, 2024 End: November 02, 2024 Meredith Guevara BUS ATTENDANT, BUS ATTENDANT-C Attending Provider Active Start: November 02, 2024 [...] 2024 End: November 23, 2024 Dr. Earl Desai DO Attending Provider Active Start: November 22, 2024 End: November 23, 2024 Dr. Earl Desai , Emergency Provider Active Start: November 22, 2024 End: November 23, 2024 Team Status: Inactive Member Role/Relationship Status Dates Dr. Nando Wiggins MD Primary Care Provider Active Start: November 30, 2024 End: November 30, 2024 Meredith Guevara NP, BUS ATTENDANT-C Attending Provider Active Start: November 30, 2024 [...] End: December 20, 2024 Meredith Guevara NP BUS ATTENDANT-C Attending Provider Active Start: December 20, 2024 [...] Grecia Duran Attending Provider Active Start: A ug2024 End: December 26, 2024 Team Status: Inactive [...] End: October 29, 2024 Pooja Ruano NP, BUS ATTENDANT-C Attending Provider Active Start: October 29, 2024 End: October 29, 2024 Dr. Nando Wiggins MD Primary Care Provider Active Start: October 29, 2024 End: October 29, 2024 Team Status: Inactive Member Role/Relationship Status Dates Dr. Nando Wiggins MD Primary Care Provider Active Start: November 02, 2024 End: November 02, 2024 Meredith Guevara BUS ATTENDANT BUS ATTENDANT-C Attending Provider Active Start: November 02, 2024 [...] 2024 End: November 09, 2024 Dr. Max Rboerts DO Attending Provider Active Start : November [...] 2024 End: November 23, 2024 Dr. Earl Desai DO Attending Provider Active Start: November 22, 2024 End: November 23, 2024 Dr. Earl Desai DO Emergency Provider Active Start: November 22, 2024 End: November 23, 2024 Team Status: Inactive Member Role/Relationship Status Dates Dr. Nando Wiggins MD Primary Care Provider Active Start: November 30, 2024 End: November 30, 2024 Meredith Guevara NP BUS ATTENDANT-C Attending Provider Active Start: November 30, 2024 End: November 30, 2024 Team Status: Active Member Role/Relationship Status Dates Dr. Nando Wiggins MD Primary Care Provider Active Start: December 12, 2024 Nando SHEWROOD MD Attending Provider Active Start: December 12, 2024 Team Status: Active Member Role/Relationship Status Dates Dr. Nando Wiggins MD Primary Care Provider Active Start: December 19, 2024 Nando SHERWOOD MD Attending Provider Active Start: December 19, 2024 Team Status: Inactive Member Role/Relationship Status Dates Dr. Nando Wiggins MD Primary Care Provider Active Start: December 20, 2024 End: December 20, 2024 Meredith Guevara BUS ATTENDANT, BUS ATTENDANT-C Attending Provider Active Start: December 20, 2024 End: December 20, 2024 Team Status: Inactive Member Role/Relationship Status Dates Dr. Nando Wiggins MD Primary Care Provider Active Start: December 21, 2024 End: December 21, 2024 Meredith Guevara BUS ATTENDANT, BUS ATTENDANT-C Attending Provider Active Start: December 21, 2024 End: December 21, 2024 Team Status: Active Member Role/Relationship Status Dates Dr. Nando Wiggins MD Primary Care Provider Active Start: December 24, 2024 Nanod SHERWOOD MD Attending Provider Active Start: December [...] 2024 End: October 29, 2024 Pooja Ruano BUS ATTENDANT, BUS ATTENDANT-C Attending Provider Active Start: October 29, 2024 End: October 29, 2024 Dr. Nando Wiggins MD Primary Care Provider Active Start: October 29, 2024 End: October 29, 2024 Team Status: Inactive Member Role/Relationship Status Dates Dr. Nando Wiggins MD Primary Care Provider Active Start: November 02, 2024 End: November 02, 2024 Meredith Guevara BUS ATTENDANT, BUS ATTENDANT-C Attending Provider Active Start: November 02, 2024 [...] 2024 End: November 23, 2024 Dr. Earl Desai DO Attending Provider Active Start: November 22, 2024 End: November 23, 2024 Dr. Earl Desai DO Emergency Provider Active Start: November 22, 2024 End: November 23, 2024 Team Status: Inactive Member Role/Relationship Status Dates Dr. Nando Wiggins MD Primary Care Provider Active Start: November 30, 2024 End: November 30, 2024 Meredith Guevara BUS ATTENDANT, BUS ATTENDANT-C Attending Provider Active Start: November 30, 2024 [...] 2024 End: December 20, 2024 Meredith Guevara BUS ATTENDANT, BUS ATTENDANT-C Attending Provider Active Start: December 20, 2024 End: December 20, 2024 Team Status: Inactive Member Role/Relationship Status Dates Dr. Nando Wiggins MD Primary Care Provider Active Start: December 21, 2024 End: December 21, 2024 Meredith Guevara BUS ATTENDANT, BUS ATTENDANT-C Attending Provider Active Start: December 21, 2024 [...] Attending Provider Active Start: January 25, 2025 Team Status: Inactive Member Role/Relationship Status Dates Dr. Nando Wiggins MD Primary Care Provider Active Start: January 25, 2025 End: January 29, 2025 Beau Dunlap MD Emergency Provider Active Star t: January 25, 2025 End: January 29, 2025 Dr. Jayla Osuna MD Admit Provider Active Star t: January 25, 2025 End: January 29, 2025 Dr. Jayla Osuna MD Other Provider Active Star t: January 25, 2025 End: January 29, 2025 Hakan Gunter MD Other Provider Active Start: January 25, 2025 End: January 29, 2025 Dr. Manuel Alva MD Other Provider Active Start: January 25, 2025 End: January 29, 2025 Dr. Jaswant Montgomery MD Attending Provider Active Start: January 25, 2025 End: January 29, 2025 Dr. Kimberly Orozco MD Other Provider Active St art: January 25, 2025 End: January 29, 2025 Team Status: Active Member Role/Relationship Status Dates Dr. Nando Wiggins MD Primary Care Provider Active Start: January 26, 2025 Beau Dunlap MD Emergency Provider Active Star t: January 26, 2025 Dr. Jayla Osuna MD Admit Provider Active Star t: January 26, 2025 Dr. Jayla Osuna MD Other Provider Active Star t: January 26, 2025 Hakan Gunter MD Other Provider Active Start: January 26, 2025 Dr. Kimberly Orozco MD Attending Provider Active Start: January 26, 2025 Dr. Kimberly Orozco MD Other Provider Active St art: January 26, 2025 Dr. Manuel Alva MD Other Provider Active Start: January 26, 2025 Team Status: Active Member Role/Relationship Status Dates Dr. Nando Wiggins MD Primary Care Provider Active Start: January 26, 2025 Beau Dunlap MD Emergency Provider Active Star t: January 26, 2025 Dr. Jayla Osuna MD Admit Provider Active Star t: January 26, 2025 Dr. Jayla Osuna MD Other Provider Active Star t: January 26, 2025 Hakan Gunter MD Attending Provider Active St art: January 26, 2025 Hakan Gunter MD Other Provider Active Start: January 26, 2025 Dr. Kimberly Orozco MD Other Provider Active St art: January 26, 2025 Dr. Manuel Alva MD Other Provider Active Start: January 26, 2025 Team Status: Active Member Role/Relationship Status Dates Dr. Nando Wiggins MD Primary Care Provider Active Start: January 27, 2025 Beau Dunlap MD Emergency Provider Active Star t: January 27, 2025 Dr. Jayla Osuna MD Admit Provider Active Star t: January 27, 2025 Dr. Jayla Osuna MD Other Provider Active Star t: January 27, 2025 Hakan Gunter MD Other Provider Active Start: January 27, 2025 Dr. Kimberly Orozco MD Other Provider Active St art: January 27, 2025 Dr. Manuel Alva MD Other Provider Active Start: January 27, 2025 Dr. Nazanin Noyola MD Attending Provider Active Start: January 27, 2025 Team Status: Active Member Role/Relationship Status Dates Dr. Nando Wiggins MD Primary Care Provider Active Start: January 27, 2025 Beau Dunlap MD Emergency Provider Active Star t: January 27, 2025 Dr. Jayla Osuna MD Admit Provider Active Star t: January 27, 2025 Dr. Jayla Osuna MD Other Provider Active Star t: January 27, 2025 Hakan Gunter MD Attending Provider Active St art: January 27, 2025 Hakan Gunter MD Other Provider Active Start: January 27, 2025 Dr. Kimberly Orozco MD Other Provider Active St art: January 27, 2025 Dr. Manuel Alva MD Other Provider Active Start: January 27, 2025 Team Status: Active Member Role/Relationship Status Dates Dr. Nando Wiggins MD Primary Care Provider Active Start: January 28, 2025 Beau Dunlap MD Emergency Provider Active Star t: January 28, 2025 Dr. Jayla Osuna MD Admit Provider Active Star t: January 28, 2025 Dr. Jayla Osuna MD Other Provider Active Star t: January 28, 2025 Hakan Gunter MD Other Provider Active Start: January 28, 2025 Dr. Manuel Alva MD Other Provider Active Start: January 28, 2025 Dr. Jaswant Montgomery MD Attending Provider Active Start: January 28, 2025 Dr. Jaswant Montgomery MD Other Provider Active Start: January 28, 2025 Dr. Kimberly Orozco MD Other Provider Active St art: January 28, 2025 Team Status: Active Member Role/Relationship Status Dates Dr. Nando Wiggins MD Primary Care Provider Active Start: January 29, 2025 Beau Dunlap MD Emergency Provider Active Star t: January 29, 2025 Dr. Jayla Osuna MD Admit Provider Active Star t: January 29, 2025 Dr. Jayla Osuna MD Other Provider Active Star t: January 29, 2025 Hakan Gunter MD Other Provider Active Start: January 29, 2025 Dr. Manuel Alva MD Other Provider Active Start: January 29, 2025 Dr. Jaswant Montgomery MD Attending Provider Active Start: January 29, 2025 Dr. Jaswant Montgomery MD Other Provider Active Start: January 29, 2025 Dr. Kimberly Orozco MD Other Provider Active St art: January 29, 2025 Team Status: Active Member Role/Relationship Status Dates Dr. Nando Wiggins MD Primary care physician Activ e Team Status: Active Member Role/Relationship Status Dates Dr. Nando Wiggins MD Primary care physician Activ e Start: October 29, 2024 Nando SHERWOOD MD Attending physician Active Start: October 29, 2024 Nando SHERWOOD MD Referring Provider Active Start: October 29, 2024 Team Status: Inactive Member Role/Relationship Status Dates Dr. Jean Yan MD Referring Provider Active Start: October 29, 2024 End: October 29, 2024 Pooja Ruano BUS ATTENDANT, BUS ATTENDANT-C Attending physician Active Start: October 29, 2024 End: October 29, 2024 Dr. Nando Wiggins MD Primary care physician Activ e Start: October 29, 2024 End: October 29, 2024 Team Status: Inactive Member Role/Relationship Status Dates Dr. Nando Wiggins MD Primary care physician Activ e Start: November 02, 2024 End: November 02, 2024 Meredith Guevara BUS ATTENDANT, BUS ATTENDANT-C Attending physician Active Start: November 02, 2024 End: November 02, 2024 Team Status: Active Member Role/Relationship Status Dates Dr. Nando Wiggins MD Primary care physician Activ e Start: November 05, 2024 Nando SHERWOOD MD Attending physician Active Start: November 05, 2024 Team Status: Inactive Member Role/Relationship Status Dates Dr. Nando Wiggins MD Primary care physician Activ e Start: November 08, 2024 End: November 09, 2024 Dr. Max Roberts DO Attending physician Active Star t: November 08, 2024 End: November 09, 2024 Dr. Max Roberts DO Referring Provider Active Start : November 08, 2024 End: November 09, 2024 Dr. Max Roberts DO Emergency Department Physician Active Start: November 08, 2024 End: November 09, 2024 Team Status: Active Member Role/Relationship Status Dates Dr. Nando Wiggins MD Primary care physician Activ e Start: November 12, 2024 Nando SHERWOOD MD Attending physician Active Start: November 12, 2024 Team Status: Inactive Member Role/Relationship Status Dates Dr. Nando Wiggins MD Primary care physician Activ e Start: November 22, 2024 End: November 23, 2024 Dr. Earl Desai DO Attending physician Active Start: November 22, 2024 End: November 23, 2024 Dr. Earl Desai DO Emergency Department Physician Active Start: November 22, 2024 End: November 23, 2024 Team Status: Inactive Member Role/Relationship Status Dates Dr. Nando Wiggins MD Primary care physician Activ e Start: November 30, 2024 End: November 30, 2024 Meredith Guevara BUS ATTENDANT, BUS ATTENDANT-C Attending physician Active Start: November 30, 2024 End: November 30, 2024 Team Status: Active Member Role/Relationship Status Dates Dr. Nando Wiggins MD Primary care physician Activ e Start: December 12, 2024 Nando SHERWOOD MD Attending physician Active Start: December 12, 2024 Team Status: Active Member Role/Relationship Status Dates Dr. Nando Wiggins MD Primary care physician Activ e Start: December 19, 2024 Nando SHERWOOD MD Attending physician Active Start: December 19, 2024 Team Status: Inactive Member Role/Relationship Status Dates Dr. Nando Wiggins MD Primary care physician Activ e Start: December 20, 2024 End: December 20, 2024 Meredith Guevara NP, BUS ATTENDANT-C Attending physician Active Start: December 20, 2024 End: December 20, 2024 Team Status: Inactive Member Role/Relationship Status Dates Dr. Nando iWggins MD Primary care physician Activ e Start: December 21, 2024 End: December 21, 2024 Meredith Guevara NP, BUS ATTENDANT-C Attending physician Active Start: December 21, 2024 End: December 21, 2024 Team Status: Active Member Role/Relationship Status Dates Dr. Nando Wiggins MD Primary care physician Activ e Start: December 24, 2024 Nando SHERWOOD MD Attending physician Active Start: December 24, 2024 Team Status: Inactive Member Role/Relationship Status Dates Dr. Nando Wiggins MD Primary care physician Activ e Start: December 26, 2024 End: December 26, 2024 Dr. Laron Bacon MD Attending physician Active Start: December 26, 2024 End: December 26, 2024 Team Status: Inactive Member Role/Relationship Status Dates Dr. Nando Wiggins MD Primary care physician Activ e Start: December 26, 2024 End: December 26, 2024 Dr. Laron Bacon MD Attending physician Active Start: December 26, 2024 End: December 26, 2024 Dr. Laron Bacon MD Referring Provider Active S tart: December 26, 2024 End: December 26, 2024 Team Status: Active Member Role/Relationship Status Dates Dr. Nando Wiggins MD Primary care physician Activ e Start: January 23, 2025 Nando SHERWOOD MD Attending physician Active Start: January 23, 2025 Team Status: Active Member Role/Relationship Status Dates Dr. Nando Wiggins MD Primary care physician Activ e Start: January 25, 2025 Beau Dunlap MD Emergency Department Physician Active Start: January 25, 2025 Hakan Gunter MD Attending physician Active S tart: January 25, 2025 Dr. Earl Mora DO Referring Provider Active Start: January 25, 2025 Team Status: Inactive Member Role/Relationship Status Dates Dr. Nando Wiggins MD Primary care physician Activ e Start: January 25, 2025 End: January 29, 2025 Beau Dunlap MD Emergency Department Physician Active Start: January 25, 2025 End: January 29, 2025 Dr. Jayla Osuna MD Admitting physician Active Start: January 25, 2025 End: January 29, 2025 Dr. Jayla Osuna MD Nurse Practitioner Active Start: January 25, 2025 End: January 29, 2025 Hakan Gunter MD Nurse Practitioner Active St art: January 25, 2025 End: January 29, 2025 Dr. Manuel Alva MD Nurse Practitioner Active Start: January 25, 2025 End: January 29, 2025 Dr. Jaswant Montgomery MD Attending physician Active Start: January End: January 29, 2025 Dr. Kimberly Orozco MD Nurse Practitioner Active Start: January 25, 2025 End: January 29, 2025 Team Status: Active Member Role/Relationship Status Dates Dr. Nando Wiggins MD Primary care physician Activ e Start: January 26, 2025 Beau Dunlap MD Emergency Department Physician Active Start: January 26, 2025 Dr. Jayla Osuna MD Admitting physician Active Start: January 26, 2025 Dr. Jayla Osuna MD Nurse Practitioner Active Start: January 26, 2025 Hakan Gunter MD Nurse Practitioner Active St art: January 26, 2025 Dr. Kimberly Orozco MD Attending physician Active Start: January 26, 2025 Dr. Kimberly Orozco MD Nurse Practitioner Active Start: January 26, 2025 Dr. Manuel Alva MD Nurse Practitioner Active Start: January 26, 2025 Team Status: Active Member Role/Relationship Status Dates Dr. Nando Wiggins MD Primary care physician Activ e Start: January 26, 2025 Beau Dunlap MD Emergency Department Physician Active Start: January 26, 2025 Dr. Jayla Osuna MD Admitting physician Active Start: January 26, 2025 Dr. Jayla Osuna MD Nurse Practitioner Active Start: January 26, 2025 Hakan Gunter MD Attending physician Active S tart: January 26, 2025 Hakan Gunter MD Nurse Practitioner Active St art: January 26, 2025 Dr. Kimberly Orozco MD Nurse Practitioner Active Start: January 26, 2025 Dr. Manuel Alva MD Nurse Practitioner Active Start: January 26, 2025 Team Status: Active Member Role/Relationship Status Dates Dr. Nando Wiggins MD Primary care physician Activ e Start: January 27, 2025 Beau Dunlap MD Emergency Department Physician Active Start: January 27, 2025 Dr. Jayla Osuna MD Admitting physician Active Start: January 27, 2025 Dr. Jayla Osuna MD Nurse Practitioner Active Start: January 27, 2025 Hakan Gunter MD Nurse Practitioner Active St art: January 27, 2025 Dr. Kimberly Orozco MD Attending physician Active Start: January 27, 2025 Dr. Kimberly Orozco MD Nurse Practitioner Active Start: January 27, 2025 Dr. Manuel Alva MD Nurse Practitioner Active Start: January 27, 2025 Team Status: Active Member Role/Relationship Status Dates Dr. Nando Wiggins MD Primary care physician Activ e Start: January 27, 2025 Beau Dunlap MD Emergency Department Physician Active Start: January 27, 2025 Dr. Jayla Osuna MD Admitting physician Active Start: January 27, 2025 Dr. Jayla Osuna MD Nurse Practitioner Active Start: January 27, 2025 Hakan Gunter MD Attending physician Active S tart: January 27, 2025 Hakan Gunter MD Nurse Practitioner Active St art: January 27, 2025 Dr. Kimberly Orozco MD Nurse Practitioner Active Start: January 27, 2025 Dr. Manuel Alva MD Nurse Practitioner Active Start: January 27, 2025 Team Status: Active Member Role/Relationship Status Dates Dr. Nando Wiggins MD Primary care physician Activ e Start: January 28, 2025 Beau Dunlap MD Emergency Department Physician Active Start: January 28, 2025 Dr. Jayla Osuna MD Admitting physician Active Start: January 28, 2025 Dr. Jayla Osuna MD Nurse Practitioner Active Start: January 28, 2025 Hakan Gunter MD Nurse Practitioner Active St art: January 28, 2025 Dr. Manuel Alva MD Nurse Practitioner Active Start: January 28, 2025 Dr. Jaswant Montgomery MD Attending physician Active Start: January Dr. Jaswant Montgomery MD Nurse Practitioner Active Start: January Dr. Kimberly Orozco MD Nurse Practitioner Active Start: January 28, 2025 Team Status: Active Member Role/Relationship Status Dates Dr. Nando Wiggins MD Primary care physician Activ e Start: January 29, 2025 Beau Dunlap MD Emergency Department Physician Active Start: January 29, 2025 Dr. Jayla Osuna MD Admitting physician Active Start: January 29, 2025 Dr. Jayla Osuna MD Nurse Practitioner Active Start: January 29, 2025 Hakan Gunter MD Nurse Practitioner Active St art: January 29, 2025 Dr. Manuel Alva MD Nurse Practitioner Active Start: January 29, 2025 Dr. Jaswant Montgomery MD Attending physician Active Start: January Dr. Jaswant Montgomery MD Nurse Practitioner Active Start: January Dr. Kimberly Orozco MD Nurse Practitioner Active Start: January 29, 2025 Team Status: Active Member Role/Relationship Status Dates Dr. Nando Wiggins MD Primary care physician Activ e Start: February 01, 2025 Nando SHERWOOD MD Attending physician Active Start: February 01, 2025 Team Status: Active Member Role/Relationship Status Dates Dr. Nando Wiggins MD Primary care physician Activ e Start: February 07, 2025 Nando SHERWOOD MD Attending physician Active Start: February 07, 2025 Nando SHERWOOD MD Referring Provider Active Start: February 07, 2025 Team Status: Active Member Role/Relationship Status Dates Dr. Nando Wiggins MD Primary care physician Activ e Start: February 12, 2025 Nando SHERWOOD MD Attending physician Active Start: February 12, 2025 Nando SHERWOOD MD Referring Provider Active Start: February 12, 2025 Team Status: Active Member Role/Relationship Status Dates Dr. Nando Wiggins MD Primary care physician Activ e Start: February 14, 2025 Nando SHERWOOD MD Attending physician Active Start: February 14, 2025 Team Status: Inactive Member Role/Relationship Status Dates Dr. Nando Wiggins MD Primary care physician Activ e Start: February 15, 2025 End: February 15, 2025 Dr. Nando Wiggins MD Referring Provider Active Start: February 15, 2025 End: February 15, 2025 Hakan Gunter MD Attending physician Active S tart: February 15, 2025 End: February 15, 2025 Team Status: Inactive Member Role/Relationship Status Dates Dr. Nando Wiggins MD Primary care physician Activ e Start: February 15, 2025 End: February 15, 2025 Dr. Laron Bacon MD Attending physician Active Start: February 15, 2025 End: February 15, 2025 Team Status: Inactive Member Role/Relationship Status Dates Dr. Nando Wiggins MD Primary care physician Activ e Start: November 05, 2024 End: November 05, 2024 Nando SHERWOOD MD Attending physician Active Start: November 05, 2024 End: November 05, 2024 Team Status: Inactive Member Role/Relationship Status Dates Dr. Nando Wiggins MD Primary care physician Activ e Start: November 22, 2024 End: November 23, 2024 Dr. Earl Desai DO Attending physician Active Start: November 22, 2024 End: November 23, 2024 Dr. Earl Desai DO Emergency Department Physician Active Start: November 22, 2024 End: November 23, 2024 Team Status: Inactive Member Role/Relationship Status Dates Dr. Nando Wiggins MD Primary care physician Activ e Start: November 30, 2024 End: November 30, 2024 Meredith Guevara NP, BUS ATTENDANT-C Attending physician Active Start: November 30, 2024 End: November 30, 2024 Team Status: Active Member Role/Relationship Status Dates Dr. Nando Wiggins MD Primary care physician Activ e Start: December 12, 2024 Nando SHERWOOD MD Attending physician Active Start: December 12, 2024 Team Status: Active Member Role/Relationship Status Dates Dr. Nando Wiggins MD Primary care physician Activ e Start: December 19, 2024 Nando SHERWOOD MD Attending physician Active Start: December 19, 2024 Team Status: Inactive Member Role/Relationship Status Dates Dr. Nando Wiggins MD Primary care physician Activ e Start: December 20, 2024 End: December 20, 2024 Meredith Guevara NP, BUS ATTENDANT-C Attending physician Active Start: December 20, 2024 End: December 20, 2024 Team Status: Inactive Member Role/Relationship Status Dates Dr. Nando Wiggins MD Primary care physician Activ e Start: December 21, 2024 End: December 21, 2024 Meredith Guevara NP, BUS ATTENDANT-C Attending physician Active Start: December 21, 2024 End: December 21, 2024 Team Status: Active Member Role/Relationship Status Dates Dr. Nando Wiggins MD Primary care physician Activ e Start: December 24, 2024 Nando SHERWOOD MD Attending physician Active Start: December 24, 2024 Team Status: Inactive Member Role/Relationship Status Dates Dr. Nando Wiggins MD Primary care physician Activ e Start: December 26, 2024 End: December 26, 2024 Dr. Laron Bacon MD Attending physician Active Start: December 26, 2024 End: December 26, 2024 Team Status: Inactive Member Role/Relationship Status Dates Dr. Nando Wiggins MD Primary care physician Activ e Start: December 26, 2024 End: December 26, 2024 Dr. Laron Bacon MD Attending physician Active Start: December 26, 2024 End: December 26, 2024 Dr. Laron Bacon MD Referring Provider Active S tart: December 26, 2024 End: December 26, 2024 Team Status: Active Member Role/Relationship Status Dates Dr. Nando Wiggins MD Primary care physician Activ e Start: January 23, 2025 Nando SHERWOOD MD Attending physician Active Start: January 23, 2025 Team Status: Active Member Role/Relationship Status Dates Dr. Nando Wiggins MD Primary care physician Activ e Start: January 25, 2025 Beau Dunlap MD Emergency Department Physician Active Start: January 25, 2025 Hakan Gunter MD Attending physician Active S tart: January 25, 2025 Dr. Earl Mora DO Referring Provider Active Start: January 25, 2025 Team Status: Inactive Member Role/Relationship Status Dates Dr. Nando Wiggins MD Primary care physician Activ e Start: January 25, 2025 End: January 29, 2025 Beau Dunlap MD Emergency Department Physician Active Start: January 25, 2025 End: January 29, 2025 Dr. Jayla Osuna MD Admitting physician Active Start: January 25, 2025 End: January 29, 2025 Dr. Jayla Osuna MD Nurse Practitioner Active Start: January 25, 2025 End: January 29, 2025 Hakan Gunter MD Nurse Practitioner Active St art: January 25, 2025 End: January 29, 2025 Dr. Manuel Alva MD Nurse Practitioner Active Start: January 25, 2025 End: January 29, 2025 Dr. Jaswant Montgomery MD Attending physician Active Start: January End: January 29, 2025 Dr. Kimberly Orozco MD Nurse Practitioner Active Start: January 25, 2025 End: January 29, 2025 Team Status: Active Member Role/Relationship Status Dates Dr. Nando Wiggins MD Primary care physician Activ e Start: January 26, 2025 Beau Dunlap MD Emergency Department Physician Active Start: January 26, 2025 Dr. Jayla Osuna MD Admitting physician Active Start: January 26, 2025 Dr. Jayla Osuna MD Nurse Practitioner Active Start: January 26, 2025 Hakan Gunter MD Nurse Practitioner Active St art: January 26, 2025 Dr. Kimberly Orozco MD Attending physician Active Start: January 26, 2025 Dr. Kimberly Orozco MD Nurse Practitioner Active Start: January 26, 2025 Dr. Manuel Alva MD Nurse Practitioner Active Start: January 26, 2025 Team Status: Active Member Role/Relationship Status Dates Dr. Nando Wiggins MD Primary care physician Activ e Start: January 26, 2025 Beau Dunlap MD Emergency Department Physician Active Start: January 26, 2025 Dr. Jayla Osuna MD Admitting physician Active Start: January 26, 2025 Dr. Jayla Osuna MD Nurse Practitioner Active Start: January 26, 2025 Hakan Gunter MD Attending physician Active S tart: January 26, 2025 Hakan Gunter MD Nurse Practitioner Active St art: January 26, 2025 Dr. Kimberly Orozco MD Nurse Practitioner Active Start: January 26, 2025 Dr. Manuel Alva MD Nurse Practitioner Active Start: January 26, 2025 Team Status: Active Member Role/Relationship Status Dates Dr. Nando Wiggins MD Primary care physician Activ e Start: January 27, 2025 Beau Dunlap MD Emergency Department Physician Active Start: January 27, 2025 Dr. Jayla Osuna MD Admitting physician Active Start: January 27, 2025 Dr. Jayla Osuna MD Nurse Practitioner Active Start: January 27, 2025 Hakan Gunter MD Nurse Practitioner Active St art: January 27, 2025 Dr. Kimberly Orozco MD Attending physician Active Start: January 27, 2025 Dr. Kimberly Orozco MD Nurse Practitioner Active Start: January 27, 2025 Dr. Manuel Alva MD Nurse Practitioner Active Start: January 27, 2025 Team Status: Active Member Role/Relationship Status Dates Dr. Nando Wiggins MD Primary care physician Activ e Start: January 27, 2025 Beau Dunlap MD Emergency Department Physician Active Start: January 27, 2025 Dr. Jayla Osuna MD Admitting physician Active Start: January 27, 2025 Dr. Jayla Osuna MD Nurse Practitioner Active Start: January 27, 2025 Hakan Gunter MD Attending physician Active S tart: January 27, 2025 Hakan Gunter MD Nurse Practitioner Active St art: January 27, 2025 Dr. Kimberly Oorzco MD Nurse Practitioner Active Start: January 27, 2025 Dr. Manuel Alva MD Nurse Practitioner Active Start: January 27, 2025 Team Status: Active Member Role/Relationship Status Dates Dr. Nando Wiggins MD Primary care physician Activ e Start: January 28, 2025 Beau Dunlap MD Emergency Department Physician Active Start: January 28, 2025 Dr. Jayla Osuna MD Admitting physician Active Start: January 28, 2025 Dr. Jayla Osuna MD Nurse Practitioner Active Start: January 28, 2025 Hakan Gunter MD Nurse Practitioner Active St art: January 28, 2025 Dr. Manuel Alva MD Nurse Practitioner Active Start: January 28, 2025 Dr. Jaswant Montgomery MD Attending physician Active Start: January Dr. Jaswant Montgomery MD Nurse Practitioner Active Start: January Dr. Kimberly Orozco MD Nurse Practitioner Active Start: January 28, 2025 Team Status: Active Member Role/Relationship Status Dates Dr. Nando Wiggins MD Primary care physician Activ e Start: January 29, 2025 Beau Dunlap MD Emergency Department Physician Active Start: January 29, 2025 Dr. Jayla Osuna MD Admitting physician Active Start: January 29, 2025 Dr. Jayla Osuna MD Nurse Practitioner Active Start: January 29, 2025 Hakan Gunter MD Nurse Practitioner Active St art: January 29, 2025 Dr. Manuel Alva MD Nurse Practitioner Active Start: January 29, 2025 Dr. Jaswant Montgomery MD Attending physician Active Start: January Dr. Jaswant Montgomery MD Nurse Practitioner Active Start: January Dr. Kimberly Orozco MD Nurse Practitioner Active Start: January 29, 2025 Team Status: Inactive Member Role/Relationship Status Dates Dr. Nando Wiggins MD Primary care physician Activ e Start: January 30, 2025 End: January 30, 2025 Meredith Guevara BUS ATTENDANT, BUS ATTENDANT-C Attending physician Active Start: January 30, 2025 End: January 30, 2025 Team Status: Active Member Role/Relationship Status Dates Dr. Nando Wiggins MD Primary care physician Activ e Start: February 01, 2025 Nando SHERWOOD MD Attending physician Active Start: February 01, 2025 Team Status: Active Member Role/Relationship Status Dates Dr. Nando Wiggins MD Primary care physician Activ e Start: February 07, 2025 Nando SHERWOOD MD Attending physician Active Start: February 07, 2025 Nando SHERWOOD MD Referring Provider Active Start: February 07, 2025 Team Status: Active Member Role/Relationship Status Dates Dr. Nando Wiggins MD Primary care physician Activ e Start: February 12, 2025 Nando SHERWOOD MD Attending physician Active Start: February 12, 2025 Nando SHERWOOD MD Referring Provider Active Start: February 12, 2025 Team Status: Active Member Role/Relationship Status Dates Dr. Nando Wiggins MD Primary care physician Activ e Start: February 14, 2025 Nando SHERWOOD MD Attending physician Active Start: February 14, 2025 Team Status: Inactive Member Role/Relationship Status Dates Dr. Nando Wiggins MD Primary care physician Activ e Start: February 15, 2025 End: February 15, 2025 Dr. Nando Wiggins MD Referring Provider Active Start: February 15, 2025 End: February 15, 2025 Hakan Gunter MD Attending physician Active S tart: February 15, 2025 End: February 15, 2025 Team Status: Inactive Member Role/Relationship Status Dates Dr. Nando Wiggins MD Primary care physician Activ e Start: February 15, 2025 End: February 15, 2025 Dr. Laron Bacon MD Attending physician Active Start: February 15, 2025 End: February 15, 2025 Team Status: Inactive Member Role/Relationship Status Dates Dr. Nando Wiggins MD Primary care physician Activ e Start: February 25, 2025 End: February 25, 2025 Dr. Laron Bacon MD Attending physician Active Start: February 25, 2025 End: February 25, 2025 Team Status: Active Member Role/Relationship Status Dates Dr. Nando Wiggins MD Primary care physician Activ e Start: February 28, 2025 Nando SHERWOOD MD Attending physician Active Start: February 28, 2025 Team Status: Active Member Role/Relationship Status Dates Dr. Nando Wiggins MD Primary care physician Activ e Start: March 07, 2025 Nando SHERWOOD MD Attending physician Active Start: March 07, 2025 Team Status: Active Member Role/Relationship Status Dates Dr. Nando Wiggins MD Primary care physician Activ e Start: March 12, 2025 Nando SHERWOOD MD Attending physician Active Start: March 12, 2025 Team Status: Inactive Member Role/Relationship Status Dates Dr. Nando Wiggins MD Primary care physician Activ e Start: February 25, 2025 End: February 25, 2025 Dr. Laron Bacon MD Attending physician Active Start: February 25, 2025 End: February 25, 2025 Dr. Laron Bacon MD Referring Provider Active S tart: February 25, 2025 End: February 25, 2025 Goals (unrecognized section and content) [...] section and content) DATE CREATED AUTHOR 09/16/2023 [facility] ([place] DATE CREATED AUTHOR AUTHOR'S ORGANIZ ATION 12/28/2024 [facility] DATE CREATED AUTHOR AUTHOR'S ORGANIZ ATION 04/03/2025 [facility] FOR RECORDS PERTAINING TO PATIENTS WHO [...] BE BASED ON THE PRIMARY CLINICAL RECORDS. [facility] [employer] [facility]. provides no warranty or guarantee of the accuracy or completeness of information in this document.
[2025-04-09 07:45] LABS: Hematocrit 36.4 % (40-54); Hemoglobin 11.5 g/dL (13.0-16.5); Immature Granulocytes Count 0.030 X10^3/uL (0.0-0.0); Mean Corp Hgb Conc 31.6 g/dL (32-36); Mean Corpuscular Volume 96.8 fL (80-94); Mean Platelet Vol. 12.1 fl (6.2-12.0); NRBC Flagged by Analyzer 0 % (0-5); Platelet Count 159 K/mm3 (150-450); RBC Distribution Width CV 14.4 % (11.6-14.6); RBC Distribution Width SD 50.9 fl (35.1-43.9); Red Blood Count 3.76 M/mm3 (4.6-6.2); White Blood Count 8.6 K/mm3 (4.4-11.0)
[2025-04-09 07:55] LABS: Anion Gap 12 (5-15); BUN 57 mg/dL (4-19); BUN/Creat Ratio 10.1 RATIO (10-20); Calcium,Total 9.3 mg/dL (7.6-11.0); Carbon Dioxide 27.1 mmol/L (21.0-32.0); Chloride 95 mmol/L (98-108); Glucose 172 mg/dL (70-99); Potassium 5.7 mmol/L (3.3-5.1)
== END ==
LOC: OLS.WHLEAS 04:00
PROVIDERS: PCP Internal Medicine; Referring Provider Internal Medicine; Visit Provider Internal Medicine
DX: E11.42 Type 2 diabetes mellitus with diabetic polyneuropathy (principal)
CPT/HCPCS: 36415; 80048; 85025

== ENCOUNTER → 2025-04-16 05:00 | Outpatient (REF) | payer MEDICARE, SELFPAY ==
--- OUTSIDE RECORDS SUMMARY | 2025-04-16 03:29 | XMS RPT_ITS | CCD ---
Author Organization [facility] ion Partnership [facility] Care Team Providers Care Manager Shipping Name Role Phone Patricia HALL, Alanna Jacobson Unavailable Unavailable Carmen Hurt Unavailable Unavailable ISABEL Kraus, Bernarda Raymundo Unavailable Unavailabl desiree Gomez RN, Alanna Jacobson Unavailable Unavailable Carmen Hurt Unavailable Unavailable DeFinis, Harumi Y Unavailable Unavailable Carmen Hurt Unavailable Unavailable Husam Yan MD Primary Care Provider Dr. Jean Yan Primary Care Provider [phone] Dr. Jean Yan Referring Provider EMILY Foley [...] Husam Yan MD Primary Care Provider Podlogar GUITAR MAKER.CAR USHER, Lauren Unavailable Dr. Jean Yan MD Primary Care Provider Nando Wiggins MD Attending Provider Unavaila ble Bowen DPM, Dr. Nunes Attending Provider Suraj DPM, Dr. Nunes Referring Provider Rosalie AVILA, Dr. Collier Primary Care Provider Paola PULP GRINDER AND BLENDER-C, Meredith Attending Provider Rosalie AVILA, Nando Referring [...] Provider Mookie AVILA, Dr. Tee Attending Provider Dr. Jean Yan MD Referring Provider [phone] Pooja Cohen Attending Provider Alejandra DIEZ, Dr. Santana Referring Provider Alejandra DIEZ, Dr. Santana Emergency Provider Rosalie AVILA, Dr. Collier Primary Care Provider Rosalie AVILA, Nando Attending Provider Ag Mendoza DPM, Dr. Kelley Referring Provider Mookie AVILA, Dr. Tee Attending Provider Mookie AVILA, Dr. Tee Other Provider Paola OTLEDO-CMeredith Attending Provider Christopher AVILA, Dr. Elliott Attending [...] Dr. Earl Desai DO Attending Provider Kassidy GUITAR MAKER.CAR USHER, Yesenia Unavailable Rosalie AVILA, Dr. Collier Primary Care Provider Dr. Randal Damico MD Attending Provider Mookie AVILA, Dr. Tee Other Provider Nando Wiggins MD Attending Provider Unavailuzma Wiggnis MD, Nando Referring Provider Unavailuzma Mendoza DPM, [...] Nando Heller MD Referring Provider Unavailuzma Ruano PULP GRINDER AND BLENDER-C, Pooja Attending Physician Paola PULP GRINDER AND BLENDER-CMeredith Attending Physician Dr. Max Roberts DO Attending [...] Jaswant Velez Attending Physician Pam AVILA, Dr. Kimberly Aguilera Nurse Practitioner Pam AVILA, Dr. Kimberly [...] Referring Unavailable Bursley, Jean Primary Care Unavailable Dacono, Earl Referring Unavailable Bursley, Jean Primary Care Unavailable Earl White Attending Unavailable Oleghe OLS, Efewongbe Attending Unavailabl desiree Garcialey, Jean Primary Care Unavailable Oleghe, Efewongbe Primary Care Unavailable Tickton PULP GRINDER AND BLENDER, Meredith Attending Unavailable Oleghe, Efewongbe Primary Care Unavailable Tickton PULP GRINDER AND BLENDER, Meredith Attending Unavailable Oleghe, Efewongbe Primary Care Unavailable Suellenton PULP GRINDER AND BLENDER, Meredith Attending Unavailable Jaswant Montgomery Consulting Unavailable Jaswant Montgomery Admitting Unavailable Deni Shields Attending Unavailable Bursley, Jean Primary Care Unavailable Randal Shore Consulting Unavailable Tanphaichikenny, Natthavat Consulting Unavaila ble Des Ruelas Consulting Unavailable Dacono, Earl Consulting Unavailable Oleghe, Efewongbe Primary Care Unavailable Jayla Osuna Admitting Unavailable Josef Garcia Consulting Unavailable Chung Humphreys Referring Unavailable Juan Antonio Holden Attending Unavailable Artie, Jayaprakas Consulting Unavailable Jayla Osuna Consulting Unavailable Randal Shore Consulting Unavailable Juan Antonio Holden Consulting Unavailable Jayla Osuna Attending Unavailable Margarette Godinez Attending Unavailable Margarette Godinez Consulting Unavailable Oleghe, Efewongbe Primary Care Unavailable Tickton PULP GRINDER AND BLENDER, Meredith Attending Unavailable Salma Cervantes Attending Unavailable Oleghe, Efewongbe Primary Care Unavailable Bursley, Jean Referring Unavailable Oleghe, Efewongbe Primary Care Unavailable Tickton PULP GRINDER AND BLENDER, Meredith Attending Unavailable Oleghe, Efewongbe Primary Care Unavailable Tickton PULP GRINDER AND BLENDER, Meredith Attending Unavailable Oleghe, Efewongbe Primary Care Unavailable Oleghe, Efewongbe Attending Unavailable Oleghe, Efewongbe Attending Unavailable Bursley, Jean Primary Care Unavailable Bursley, Jean Primary Care Unavailable Tickton PULP GRINDER AND BLENDER, Meredith Attending Unavailable Oleghe, Efewongbe Primary Care [...] Unavailable Oleghe, Efewongbe Primary Care Unavailable Arleen, Vanderbilt Referring Unavailable Shameka Baconl Attending Unavailable Oleghe, [...] Unavailable Oleghe, Efewongbe Primary Care Unavailable Paola PULP GRINDER AND BLENDER, Meredith Attending Unavailable Oleghe, Efewongbe Primary Care [...] Oleghe OLS, Efewongbe Attending Unavailabl e Bursley, Jaen Primary Care Unavailable Oleghe OLS, Efewongbe Attending [...] Attending Unavailable Oleghe, Efewongbe Primary Care Unavailable Dacono, Earl Referring Unavailable Siska, Randal Consulting Unavailable Christopher, Earl Admitting Unavailable Christopher, Earl Attending Unavailable Dacono, Earl Consulting Unavailable Sisdhaval Randal Attending Unavailable Artie, Jayaprakas Consulting Unavailable Salma Cervantes Attending Unavailable Dacono, Earl Referring Unavailable Siska, Randal Consulting Unavailable [...] Unavailable Oleghe, Efewongbe Primary Care Unavailable Tickton PULP GRINDER AND BLENDER, Meredith Attending Unavailable Oleghe, Efewongbe Primary Care Unavailable Paola PULP GRINDER AND BLENDER, Meredith Attending Unavailable Oleghe, Efewongbe Primary Care Unavailable Paola PULP GRINDER AND BLENDER, Meredith Attending Unavailable Oleghe, Efewongbe Primary Care [...] [ATENOLOL] allergy to substance 0 GI Upset [facility] Work Phone: (17 sources) pioglitazone drug allergy 7 fatigue [facility] Work Phone: (12 sources) simvastatin drug allergy 7 myalgia [facility] Work Phone: (12 sources) SITagliptin drug allergy 7 [facility] Work Phone: (20 sources) pioglitazone; Translations: [PIOGLITAZONE HCL] Drug Allergy 7 Other: See Comments [facility] Work Phone: (20 sources) Simvastatin; Translations: [SIMVASTATIN] Drug Allergy 7 myalgia [facility] Work Phone: (20 sources) SITagliptin; Translations: [SITAGLIPTIN] Drug Allergy 4 Other: See Comments [facility] (20 sources) pioglitazone Drug Allergy 2 fatigue [facility] (13 sources) semaglutide; Translations: [SEMAGLUTIDE] Drug Allergy 4 GI Upset [facility] (1 source) pioglitazone Drug Allergy 5 [facility] (1 source) Simvastatin Drug Allergy 5 [facility] (1 source) SITagliptin Drug Allergy 5 [facility] Medications Current Medications Medication Drug [...] TBEC One tablet by mouth daily ASPIRIN [id number] Bernarda Kraus RN Start: 04-06-2013 take 1 [...] One tablet by mouth daily CHOLECALCIFEROL CAPS [id number] Laron Bacon MD take 1 tablet by [...] One tablet by mouth daily AMLODIPINE BESYLATE [id number] Bernarda Kraus RN amoxicillin 250 mg / [...] TABS One tablet by mouth daily ATENOLOL [id number] Bernarda Kraus RN B COMPLEX VITAMINS (2 sources) Start: 10-27-2016 take 1 tablet by mouth once daily B COMPLEX-B12 TABS One tablet by mouth daily B COMPLEX VITAMINS [id number] Laron Bacon MD B COMPLEX VITAMINS (3 sources) Start: 10-27-2016 take 1 tablet by mouth once daily B COMPLEX-B12 TABS One tablet by mouth daily B COMPLEX VITAMINS [id number] Laron Bacon MD cephalexin 500 mg oral capsule (20 sources) Cephalosporin Antibacterial Start: 10-13-2020 End: 10-18-2020 cinnamon bark 500 mg oral capsule (7 sources) Start: 10-26-2016 take 1 tablet by mouth once daily CINNAMON 500 MG CAPS One tablet by mouth daily CINNAMON [id number] Bernarda Kraus RN clopidogrel 75 mg oral tablet (20 sources) P2Y12 Platelet Inhibitor Start: 07-02-2024 End: 10-17-2024 Start: 04-24-2024 End: 06-04-2024 docusate sodium 50 mg / ino osides, senior living 8.6 mg oral tablet (20 sources) Start: [...] tablet by davin th once daily Vitamin A86-Peaxq Acid Active 1 TABLET PO DAILY October [...] TABS One tablet by mouth daily GLIPIZIDE [id number] Bernarda Kraus RN Comment on above: Take [...] TABS One tablet by mouth daily HYDROCHLOROTHIAZIDE [id number] Laron Bacon MD sodium hypochlorite 2.5 mg/ml [...] tablet by mouth daily KRILL OIL CAPS [id number] Laron Bacon MD 3 ml liraglutide 6 mg/ml pen injector (20 sources) GLP-1 Receptor Agonist Start: 7 End: 8 Start: 05-12-2017 End: 05-04-2018 Liraglutide Discontinued SC 6 60 May 12, 2017 1:00am May 04, 2018 10:45am Start: 10-26-2016 VICTOZA TERRA jacobson s directed LIRAGLUTIDE SOLN [id number] Bernarda Kraus RN lisinopril 40 mg oral tablet (20 sources) Angiotensin Converting Enzyme Inhibitor Start: 05-12-2017 End: 05-02-2020 Start: 10-26-2016 take 1 tablet by davin th once daily ZESTRIL 40 MG TABS One tablet by mouth daily LISINOPRIL [id number] Bernarda Kraus RN menthol 0.0044 mg/mg / zinc oxide 0.206 mg/mg topical ointment (5 sources) Start: 07-20-2024 End: 01-25-2025 methylsulfonylmethane (5 sources) Start: 10-27-2016 take 1 tablet by mouth once daily [facility] MSM CAPS One tablet by mouth daily METHYLSULFONYLMETHANE CAPS [id number] Laron Bacon MD metoprolol tartrate 25 mg oral tablet (20 sources) beta-Adrenergi c Prakash Start: 04-18-2020 End: 05-02-2020 miconazole nitrate 20 mg/ml topical cream (20 sources) Azole Antifungal Start: 04-24-2024 End: 05-10-2024 nystatin 147659 unt/ml topical cream (20 sources) Polyene Antifungal [...] Acute and unspecified renal failure (20 sources) [id number]-el-[id number] renal failure; Translations: [Acute kidney failure, unspecified] [...] 01-25-2025 Episodic Gangrene (20 sources) 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, right leg; Translations: [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] Onset: [...] sources) Long-term current use of anticoagulant; Translations: [halfway (current) use of anticoagulants] 01-25-2025 Episodic Other [...] (4 sources) Long-term drug therapy; Translations: [Other termite treater (current) drug therapy] Onset: 7 10-26-2016 Past [...] 09-22-2011 Episodic Other aftercare (3 sources) Other correction (current) drug therapy; Translations: [Other termite treater (current) drug therapy] Onset: 10-26-2016 10-26-2016 Episodic Other aftercare (1 source) halfway (current) use of insulin; Translations: [Type 2 [...] 03-29-20 25 Femur Min 2 Views Normal [facility] Orthopedic Visit Reporton Orthopedic Visit Report Normal [facility] Absolute lymphocyte countOrd ered By: Nando Wiggins on 03-12-2025 Lymphocytes Auto (Unsp spec) [#/Vol] 1.67 10*3/uL 0.83-4.51 [facility] Anion gap in Serum or Plasma Ordered By: Nando Wiggins on 03-12-2025 Anion gap [Moles/Vol] 13 mmol/L 5-15 [facility] Automated lymphocyte count a s percentage of total leukocytesOrdered By: Nando Wiggins on 03-12-2025 Lymphocytes/100 WBC Auto (Unsp spec) 21.9 % 19-41 [facility] BUN/creatinine ratioOrdered By: Nando Wiggins on 03-12-2025 Urea nitrogen/Creatinine [Mass ratio] 7.8 mg/mg Low 10-20 [facility] Basophil percentageOrdered B y: Nando Wiggins on 03-12-2025 Basophils/100 WBC (Bld) 0.8 % 0-1 [facility] Bilirubin directOrdered By: Nando Wiggins on 03-12-2025 Bilirubin.direct [Mass/Vol] 0.13 mg/dL 0.00-0.30 [facility] Bilirubin, totalOrdered By: Nando Wiggins on 03-12-2025 Bilirubin [Mass/Vol] 0.41 mg/dL 0.00-1.30 [facility] Carbon dioxide, total [Moles /volume] in Central venous bloodOrdered By: Nando Wiggins on 03-12-2025 CO2 [Moles/Vol] 27.0 mmol/L 21.0-32.0 [facility] Chloride assayOrdered By: Kathie Wiggins on 03-12-2025 Chloride [Moles/Vol] 95 mmol/L Low 98-108 [facility] Eosinophil percentageOrdered By: Nando Wiggins on 03-12-2025 Eosinophils/100 WBC (Bld) 3.1 % 0-5 [facility] Erythrocyte distribution wid th ratioOrdered By: Nando Wiggins on 03-12-2025 Erythrocyte distribution width (RBC) [Ratio] 15.5 % High 11.6-14.6 [facility] Erythrocyte distribution wid th standard deviationOrdered By: Nando Wiggins on 03-12-2025 Erythrocyte distribution width (RBC) [Ratio] 55.2 fl High 35.1-43.9 [facility] Glomerular filtration rate ( GFR) estimation/1.73 sq m using serum, plasma, or whole bOrdered By: Nando Wiggins on 03-12-2025 GFR/1.73 sq M.predicted among non-blacks MDRD (S/P/Bld) [Vol rate/Area] 8 mL/min/{1.73_m2} Low >60 [facility] Hematocrit Auto (Bld) [Volum e fraction]Ordered By: Nando Wiggins on 03-12-2025 Hematocrit (Bld) [Volume fraction] 36.5 % Low 40-54 [facility] Hemoglobin A1c percentageOrd ered By: Nando Wiggins on 03-12-2025 HbA1c (Bld) [Mass fraction] 6.6 % High <5.7 [facility] Hemoglobin measurementOrdere d By: Nando Wiggins on 03-12-2025 Hemoglobin (Bld) [Mass/Vol] 11.8 g/dL Low 13.0-16.5 [facility] Immature granulocytes/100 WB C Auto (Bld)Ordered By: Nando Wiggins on 03-12-2025 Immature granulocytes/100 WBC (Bld) 0.100 % 0.0-0.9 [facility] MCV (mean corpuscular volume ) determinationOrdered By: Nando Wiggins on 03-12-2025 MCV (RBC) [Entitic vol] 97.6 fL High 80-94 [facility] Mean corpuscular hemoglobin (MCH) determinationOrdered By: Nando Wiggins on 03-12-2025 MCH (RBC) [Entitic mass] 31.6 pg 27.0-32.0 [facility] Monocyte percentageOrdered B y: Nando Wiggins on 03-12-2025 Monocytes/100 WBC (Bld) 9.4 % 0-10 [facility] Neutrophil percentageOrdered By: Nando Wiggins on 03-12-2025 Neutrophils/100 WBC (Bld) 64.7 % 47-70 [facility] No Panel InformationOrdered By: Nando Wiggins on 03-12-2025 18 U/L <38 [facility] Platelet countOrdered By: Kathie Wiggins on 03-12-2025 Platelets (Bld) [#/Vol] 179 10*3/uL 150-450 [facility] Potassium measurement (mass/ volume)Ordered By: Nando Wiggins on 03-12-2025 Potassium (Unsp spec) [Mass/Vol] 4.2 mmol/L 3.3-5.1 [facility] RBC Auto (Bld) [#/Vol]Ordere d By: Nando Wiggins on 03-12-2025 RBC (Bld) [#/Vol] 3.74 10*6/uL Low 4.6-6.2 [facility] Serum creatinine measurement (mass/volume)Ordered By: Nando Wiggins on 03-12-2025 Creatinine [Mass/Vol] 6.36 mg/dL High 0.70-1.20 [facility] Serum globulin measurementOr dered By: Nando Wiggins on 03-12-2025 Globulin (S) [Mass/Vol] 3.0 g/dL 2.2-4.2 [facility] Serum glucose measurement (m ass/volume)Ordered By: Nando Wiggins on 03-12-2025 Glucose [Mass/Vol] 119 mg/dL High 70-99 [facility] Serum or plasma alanine hawkins otransferase (ALT) measurementOrdered By: Nando Wiggins on 03-12-2025 ALT [Catalytic activity/Vol] 8 U/L <47 [facility] Serum or plasma albumin lilli urement (mass/volume)Ordered By: Nando Wiggins on 03-12-2025 Albumin [Mass/Vol] 3.6 g/dL 3.4-4.8 [facility] Serum or plasma alkaline penelope sphatase measurementOrdered By: Nando Wiggins 03-12-2025 ALP [Catalytic activity/Vol] 67 U/L 40-129 [facility] Serum or plasma calcium lilli urement (mass/volume)Ordered By: Nando Wiggins on 03-12-2025 Calcium [Mass/Vol] 9.0 mg/dL 7.6-11.0 [facility] Serum or plasma urea nitroge n measurement (mass/volume)Ordered By: Nando Wiggins on 03-12-2025 Urea nitrogen [Mass/Vol] 49 mg/dL High 4-19 [facility] Sodium levelOrdered By: Deb Wiggins on 03-12-2025 Sodium [Moles/Vol] 135 mmol/L 133-145 [facility] Total proteinOrdered By: Sinan Wiggins on 03-12-2025 Protein [Mass/Vol] 6.6 g/dL 5.9-8.4 [facility] Vitamin B12 ser/plasOrdered By: Nando Meekcheko on 03-12-2025 Cobalamin (Vitamin B12) [Mass/Vol] 554 pg/mL 180-914 [facility] White blood cell (WBC) count Ordered By: Nando Meekcheko on 03-12-2025 WBC (Bld) [#/Vol] 7.6 10*3/uL 4.4-11.0 [facility] Absolute lymphocyte countOrd ered By: Nando Wiggins on 03-07-2025 Lymphocytes Auto (Unsp spec) [#/Vol] 1.85 10*3/uL 0.83-4.51 [facility] Anion gap in Serum or Plasma Ordered By: Nando Meekcheko on 03-07-2025 Anion gap [Moles/Vol] 15 mmol/L 5-15 [facility] Automated lymphocyte count a s percentage of total leukocytesOrdered By: Kathiebiancasrinathwolf Edenlakshmidesiree on 03-07-2025 Lymphocytes/100 WBC Auto (Unsp spec) 25.7 % 19-41 [facility] BUN/creatinine ratioOrdered By: Nando Meeklakshmidesiree on 03-07-2025 Urea nitrogen/Creatinine [Mass ratio] 7.7 mg/mg Low 10-20 [facility] Basophil percentageOrdered B y: Nando Meekcheko on 03-07-2025 Basophils/100 WBC (Bld) 0.8 % 0-1 [facility] Carbon dioxide, total [Moles /volume] in Central venous bloodOrdered By: Kathiebiancasrinathwolf Edenlakshmidesiree on 03-07-2025 CO2 [Moles/Vol] 25.8 mmol/L 21.0-32.0 [facility] Chloride assayOrdered By: Kathie Wiggins on 03-07-2025 Chloride [Moles/Vol] 95 mmol/L Low 98-108 [facility] Eosinophil percentageOrdered By: Nando Wiggins on 03-07-2025 Eosinophils/100 WBC (Bld) 3.5 % 0-5 [facility] Erythrocyte distribution wid th ratioOrdered By: Nando Wiggins on 03-07-2025 Erythrocyte distribution width (RBC) [Ratio] 16.4 % High 11.6-14.6 [facility] Erythrocyte distribution wid th standard deviationOrdered By: Nando Wiggins on 03-07-2025 Erythrocyte distribution width (RBC) [Ratio] 59.2 fl High 35.1-43.9 [facility] Glomerular filtration rate ( GFR) estimation/1.73 sq m using serum, plasma, or whole bOrdered By: Nando Wiggins on 03-07-2025 GFR/1.73 sq M.predicted among non-blacks MDRD (S/P/Bld) [Vol rate/Area] 9 mL/min/{1.73_m2} Low >60 [facility] Hematocrit Auto (Bld) [Volum e fraction]Ordered By: Nando Wiggins on 03-07-2025 Hematocrit (Bld) [Volume fraction] 36.3 % Low 40-54 [facility] Hemoglobin measurementOrdere d By: Nando Wiggins on 03-07-2025 Hemoglobin (Bld) [Mass/Vol] 11.5 g/dL Low 13.0-16.5 [facility] Immature granulocytes/100 WB C Auto (Bld)Ordered By: Nando Wiggins on 03-07-2025 Immature granulocytes/100 WBC (Bld) 0.600 % 0.0-0.9 [facility] MCV (mean corpuscular volume ) determinationOrdered By: Nando Wiggins on 03-07-2025 MCV (RBC) [Entitic vol] 99.2 fL High 80-94 [facility] Mean corpuscular hemoglobin (MCH) determinationOrdered By: Nando Wiggins 03-07-2025 MCH (RBC) [Entitic mass] 31.4 pg 27.0-32.0 [facility] Monocyte percentageOrdered B y: Nando Wiggins on 03-07-2025 Monocytes/100 WBC (Bld) 12.8 % High 0-10 [facility] Neutrophil percentageOrdered By: Nando Wiggins on 03-07-2025 Neutrophils/100 WBC (Bld) 56.6 % 47-70 [facility] Platelet countOrdered By: Kathie Wiggins on 03-07-2025 Platelets (Bld) [#/Vol] 148 10*3/uL Low 150-450 [facility] Potassium measurement (mass/ volume)Ordered By: Nando Meekcheko on 03-07-2025 Potassium (Unsp spec) [Mass/Vol] 4.4 mmol/L 3.3-5.1 [facility] RBC Auto (Bld) [#/Vol]Ordere d By: Nando Wiggins on 03-07-2025 RBC (Bld) [#/Vol] 3.66 10*6/uL Low 4.6-6.2 [facility] Serum creatinine measurement (mass/volume)Ordered By: Nando Wiggins on 03-07-2025 Creatinine [Mass/Vol] 5.90 mg/dL High 0.70-1.20 [facility] Serum glucose measurement (m ass/volume)Ordered By: Nando Meekcheko on 03-07-2025 Glucose [Mass/Vol] 128 mg/dL High 70-99 [facility] Serum or plasma calcium lilli urement (mass/volume)Ordered By: Kathiebiancalilian Meekcheko on 03-07-2025 Calcium [Mass/Vol] 8.5 mg/dL 7.6-11.0 [facility] Serum or plasma urea nitroge n measurement (mass/volume)Ordered By: Nando Meeklakshmidesiree on 03-07-2025 Urea nitrogen [Mass/Vol] 46 mg/dL High 4-19 [facility] Sodium levelOrdered By: Deb quintana Meeklakshmidesiree on 03-07-2025 Sodium [Moles/Vol] 136 mmol/L 133-145 [facility] White blood cell (WBC) count Ordered By: Nando Wiggins on 03-07-2025 WBC (Bld) [#/Vol] 7.2 10*3/uL 4.4-11.0 [facility] Absolute lymphocyte countOrd ered By: Nando Wiggins on 02-28-2025 Lymphocytes Auto (Unsp spec) [#/Vol] 1.77 10*3/uL 0.83-4.51 [facility] Anion gap in Serum or Plasma Ordered By: Debsrinathwolf Edenlakshmidesiree on 02-28-2025 Anion gap [Moles/Vol] 11 mmol/L 5-15 [facility] Automated lymphocyte count a s percentage of total leukocytesOrdered By: Kathiebiancalilian Meeklakshmidesiree on 02-28-2025 Lymphocytes/100 WBC Auto (Unsp spec) 23.3 % 19-41 [facility] BUN/creatinine ratioOrdered By: Kathiebiancasrinathwolf Edenlakshmidesiree on 02-28-2025 Urea nitrogen/Creatinine [Mass ratio] 7.0 mg/mg Low 10-20 [facility] Basophil percentageOrdered B y: Nando Wiggins on 02-28-2025 Basophils/100 WBC (Bld) 1.2 % High 0-1 [facility] Carbon dioxide, total [Moles /volume] in Central venous bloodOrdered By: Kathiebiancalilian Meeklakshmidesiree on 02-28-2025 CO2 [Moles/Vol] 28.4 mmol/L 21.0-32.0 [facility] Chloride assayOrdered By: Kathie fili Meeklakshmidesiree on 02-28-2025 Chloride [Moles/Vol] 96 mmol/L Low 98-108 [facility] Eosinophil percentageOrdered By: Nando Brownedesiree on 02-28-2025 Eosinophils/100 WBC (Bld) 3.3 % 0-5 [facility] Erythrocyte distribution wid th ratioOrdered By: Nando Brownedesiree on 02-28-2025 Erythrocyte distribution width (RBC) [Ratio] 16.3 % High 11.6-14.6 [facility] Erythrocyte distribution wid th standard deviationOrdered By: Nando Edenlakshmidesiree on 02-28-2025 Erythrocyte distribution width (RBC) [Ratio] 55.8 fl High 35.1-43.9 [facility] Glomerular filtration rate ( GFR) estimation/1.73 sq m using serum, plasma, or whole bOrdered By: Nando Wiggins on 02-28-2025 GFR/1.73 sq M.predicted among non-blacks MDRD (S/P/Bld) [Vol rate/Area] 9 mL/min/{1.73_m2} Low >60 [facility] Hematocrit Auto (Bld) [Volum e fraction]Ordered By: Nando Wiggins on 02-28-2025 Hematocrit (Bld) [Volume fraction] 35.3 % Low 40-54 [facility] Hemoglobin measurementOrdere d By: Nando Wiggins on 02-28-2025 Hemoglobin (Bld) [Mass/Vol] 11.1 g/dL Low 13.0-16.5 [facility] Immature granulocytes/100 WB C Auto (Bld)Ordered By: Nando Wiggins on 02-28-2025 Immature granulocytes/100 WBC (Bld) 1.800 % High 0.0-0.9 [facility] MCV (mean corpuscular volume ) determinationOrdered By: Nando Wiggins on 02-28-2025 MCV (RBC) [Entitic vol] 99.7 fL High 80-94 [facility] Mean corpuscular hemoglobin (MCH) determinationOrdered By: Nando Wiggins on 02-28-2025 MCH (RBC) [Entitic mass] 31.4 pg 27.0-32.0 [facility] Monocyte percentageOrdered B y: Nando Wiggins on 02-28-2025 Monocytes/100 WBC (Bld) 12.7 % High 0-10 [facility] Neutrophil percentageOrdered By: Nando Wiggins on 02-28-2025 Neutrophils/100 WBC (Bld) 57.7 % 47-70 [facility] Platelet countOrdered By: Kathie Wiggins on 02-28-2025 Platelets (Bld) [#/Vol] 249 10*3/uL 150-450 [facility] Potassium measurement (mass/ volume)Ordered By: Nando Wiggins on 02-28-2025 Potassium (Unsp spec) [Mass/Vol] 4.3 mmol/L 3.3-5.1 [facility] RBC Auto (Bld) [#/Vol]Ordere d By: Nando Wiggins on 02-28-2025 RBC (Bld) [#/Vol] 3.54 10*6/uL Low 4.6-6.2 [facility] Serum creatinine measurement (mass/volume)Ordered By: Nando Wiggins on 02-28-2025 Creatinine [Mass/Vol] 5.82 mg/dL High 0.70-1.20 [facility] Serum glucose measurement (m ass/volume)Ordered By: Nando Wiggins on 02-28-2025 Glucose [Mass/Vol] 197 mg/dL High 70-99 [facility] Serum or plasma calcium lilli urement (mass/volume)Ordered By: Nando Wiggins on 02-28-2025 Calcium [Mass/Vol] 9.0 mg/dL 7.6-11.0 [facility] Serum or plasma urea nitroge n measurement (mass/volume)Ordered By: Nando Wiggins on 02-28-2025 Urea nitrogen [Mass/Vol] 41 mg/dL High 4-19 [facility] Sodium levelOrdered By: Deb lilian Rosalie on 02-28-2025 Sodium [Moles/Vol] 136 mmol/L 133-145 [facility] White blood cell (WBC) count Ordered By: Nando Wiggins on 02-28-2025 WBC (Bld) [#/Vol] 7.6 10*3/uL 4.4-11.0 [facility] Femur Min 2 Viewson 02-16-20 25 Femur Min 2 Views Normal [facility] Orthopedic Visit Reporton Orthopedic Visit Report Normal [facility] Absolute lymphocyte countOrd ered By: Nando Wiggins on 02-14-2025 Lymphocytes Auto (Unsp spec) [#/Vol] 1.41 10*3/uL 0.83-4.51 [facility] Anion gap in Serum or Plasma Ordered By: Nando Wiggins on 02-14-2025 Anion gap [Moles/Vol] 14 mmol/L 5-15 [facility] Automated lymphocyte count a s percentage of total leukocytesOrdered By: Nando Wiggins on 02-14-2025 Lymphocytes/100 WBC Auto (Unsp spec) 17.6 % Low 19-41 [facility] BUN/creatinine ratioOrdered By: Nando Edenlakshmidesiree on 02-14-2025 Urea nitrogen/Creatinine [Mass ratio] 8.4 mg/mg Low 10-20 [facility] Basophil percentageOrdered B y: Nando Wiggins on 02-14-2025 Basophils/100 WBC (Bld) 0.7 % 0-1 [facility] Carbon dioxide, total [Moles /volume] in Central venous bloodOrdered By: Nando Wiggins on 02-14-2025 CO2 [Moles/Vol] 25.7 mmol/L 21.0-32.0 [facility] Chloride assayOrdered By: Kathie biancalilian Wiggins on 02-14-2025 Chloride [Moles/Vol] 93 mmol/L Low 98-108 [facility] Eosinophil percentageOrdered By: Nando Edenlakshmidesiree on 02-14-2025 Eosinophils/100 WBC (Bld) 3.9 % 0-5 [facility] Erythrocyte distribution wid th ratioOrdered By: Nando Wiggins on 02-14-2025 Erythrocyte distribution width (RBC) [Ratio] 15.6 % High 11.6-14.6 [facility] Erythrocyte distribution wid th standard deviationOrdered By: Nando Wiggins on 02-14-2025 Erythrocyte distribution width (RBC) [Ratio] 52.3 fl High 35.1-43.9 [facility] Glomerular filtration rate ( GFR) estimation/1.73 sq m using serum, plasma, or whole bOrdered By: Nando Wiggins on 02-14-2025 GFR/1.73 sq M.predicted among non-blacks MDRD (S/P/Bld) [Vol rate/Area] 10 mL/min/{1.73_m2} Low >60 [facility] Hematocrit Auto (Bld) [Volum e fraction]Ordered By: Nando Wiggins on 02-14-2025 Hematocrit (Bld) [Volume fraction] 28.6 % Low 40-54 [facility] Hemoglobin measurementOrdere d By: Nando Wiggins on 02-14-2025 Hemoglobin (Bld) [Mass/Vol] 9.3 g/dL Low 13.0-16.5 [facility] Immature granulocytes/100 WB C Auto (Bld)Ordered By: Kathiebiancalilian Meeklakshmidesiree on 02-14-2025 Immature granulocytes/100 WBC (Bld) 1.100 % High 0.0-0.9 [facility] MCV (mean corpuscular volume ) determinationOrdered By: Kathiebiancasrinathwolf Edenlakshmidesiree on 02-14-2025 MCV (RBC) [Entitic vol] 96.6 fL High 80-94 [facility] Mean corpuscular hemoglobin (MCH) determinationOrdered By: Kathiefili Edenlakshmidesiree on 02-14-2025 MCH (RBC) [Entitic mass] 31.4 pg 27.0-32.0 [facility] Monocyte percentageOrdered B y: Nando Meekcheko on 02-14-2025 Monocytes/100 WBC (Bld) 11.6 % High 0-10 [facility] Neutrophil percentageOrdered By: fili Wiggins on 02-14-2025 Neutrophils/100 WBC (Bld) 65.1 % 47-70 [facility] Platelet countOrdered By: Kathie fili Wiggins on 02-14-2025 Platelets (Bld) [#/Vol] 233 10*3/uL 150-450 [facility] Potassium measurement (mass/ volume)Ordered By: Kathiebiancalilian Meeklakshmidesiree on 02-14-2025 Potassium (Unsp spec) [Mass/Vol] 4.5 mmol/L 3.3-5.1 [facility] RBC Auto (Bld) [#/Vol]Ordere d By: Nando Wiggins on 02-14-2025 RBC (Bld) [#/Vol] 2.96 10*6/uL Low 4.6-6.2 [facility] Serum creatinine measurement (mass/volume)Ordered By: Kathiefili Edenlakshmidesiree on 02-14-2025 Creatinine [Mass/Vol] 5.03 mg/dL High 0.70-1.20 [facility] Serum glucose measurement (m ass/volume)Ordered By: Nando Wiggins on 02-14-2025 Glucose [Mass/Vol] 130 mg/dL High 70-99 [facility] Serum or plasma calcium lilli urement (mass/volume)Ordered By: Nando Wiggins on 02-14-2025 Calcium [Mass/Vol] 8.7 mg/dL 7.6-11.0 [facility] Serum or plasma urea nitroge n measurement (mass/volume)Ordered By: Nando Wiggins on 02-14-2025 Urea nitrogen [Mass/Vol] 42 mg/dL High 4-19 [facility] Sodium levelOrdered By: Kathie lilian Rosalie on 02-14-2025 Sodium [Moles/Vol] 133 mmol/L 133-145 [facility] White blood cell (WBC) count Ordered By: Nando Wiggins on 02-14-2025 WBC (Bld) [#/Vol] 8.0 10*3/uL 4.4-11.0 [facility] Absolute lymphocyte countOrd ered By: Nando Wiggins on 02-12-2025 Lymphocytes Auto (Unsp spec) [#/Vol] 1.23 10*3/uL 0.83-4.51 [facility] Anion gap in Serum or Plasma Ordered By: Nando Wiggins on 02-12-2025 Anion gap [Moles/Vol] 14 mmol/L 5-15 [facility] Automated lymphocyte count a s percentage of total leukocytesOrdered By: Nando Wiggins on 02-12-2025 Lymphocytes/100 WBC Auto (Unsp spec) 13.9 % Low 19-41 [facility] BUN/creatinine ratioOrdered By: Nando Wiggins on 02-12-2025 Urea nitrogen/Creatinine [Mass ratio] 10.1 mg/mg 10-20 [facility] Basophil percentageOrdered B y: Nando Wiggins on 02-12-2025 Basophils/100 WBC (Bld) 0.7 % 0-1 [facility] Carbon dioxide, total [Moles /volume] in Central venous bloodOrdered By: Nando Wiggins on 02-12-2025 CO2 [Moles/Vol] 25.3 mmol/L 21.0-32.0 [facility] Chloride assayOrdered By: Kathie Wiggins on 02-12-2025 Chloride [Moles/Vol] 92 mmol/L Low 98-108 [facility] Eosinophil percentageOrdered By: Nando Wiggins on 02-12-2025 Eosinophils/100 WBC (Bld) 2.9 % 0-5 [facility] Erythrocyte distribution wid th ratioOrdered By: Nando Wiggins on 02-12-2025 Erythrocyte distribution width (RBC) [Ratio] 15.0 % High 11.6-14.6 [facility] Erythrocyte distribution wid th standard deviationOrdered By: Nando Wiggins on 02-12-2025 Erythrocyte distribution width (RBC) [Ratio] 51.9 fl High 35.1-43.9 [facility] Glomerular filtration rate ( GFR) estimation/1.73 sq m using serum, plasma, or whole bOrdered By: Nando Wiggins on 02-12-2025 GFR/1.73 sq M.predicted among non-blacks MDRD (S/P/Bld) [Vol rate/Area] 9 mL/min/{1.73_m2} Low >60 [facility] Hematocrit Auto (Bld) [Volum e fraction]Ordered By: Nando Wiggins on 02-12-2025 Hematocrit (Bld) [Volume fraction] 29.8 % Low 40-54 [facility] Hemoglobin measurementOrdere d By: Nando Wiggins on 02-12-2025 Hemoglobin (Bld) [Mass/Vol] 9.4 g/dL Low 13.0-16.5 [facility] Immature granulocytes/100 WB C Auto (Bld)Ordered By: Nando Wiggins on 02-12-2025 Immature granulocytes/100 WBC (Bld) 1.500 % High 0.0-0.9 [facility] MCV (mean corpuscular volume ) determinationOrdered By: Nando Wiggins on 02-12-2025 MCV (RBC) [Entitic vol] 96.8 fL High 80-94 [facility] Mean corpuscular hemoglobin (MCH) determinationOrdered By: Nando Wiggins on 02-12-2025 MCH (RBC) [Entitic mass] 30.5 pg 27.0-32.0 [facility] Monocyte percentageOrdered B y: Nando Wiggins on 02-12-2025 Monocytes/100 WBC (Bld) 9.7 % 0-10 [facility] Neutrophil percentageOrdered By: Nando Wiggins on 02-12-2025 Neutrophils/100 WBC (Bld) 71.3 % High 47-70 [facility] Platelet countOrdered By: Kathie Wiggins on 02-12-2025 Platelets (Bld) [#/Vol] 238 10*3/uL 150-450 [facility] Potassium measurement (mass/ volume)Ordered By: Nando Wiggins on 02-12-2025 Potassium (Unsp spec) [Mass/Vol] 4.5 mmol/L 3.3-5.1 [facility] RBC Auto (Bld) [#/Vol]Ordere d By: Nando Wiggins on 02-12-2025 RBC (Bld) [#/Vol] 3.08 10*6/uL Low 4.6-6.2 [facility] Serum creatinine measurement (mass/volume)Ordered By: Nando Wiggins on 02-12-2025 Creatinine [Mass/Vol] 5.63 mg/dL High 0.70-1.20 [facility] Serum glucose measurement (m ass/volume)Ordered By: Nando Wiggins on 02-12-2025 Glucose [Mass/Vol] 173 mg/dL High 70-99 [facility] Serum or plasma calcium lilli urement (mass/volume)Ordered By: Nando Wiggins on 02-12-2025 Calcium [Mass/Vol] 8.8 mg/dL 7.6-11.0 [facility] Serum or plasma urea nitroge n measurement (mass/volume)Ordered By: Nando Wiggins on 02-12-2025 Urea nitrogen [Mass/Vol] 57 mg/dL High 4-19 [facility] Sodium levelOrdered By: Deb Wiggins on 02-12-2025 Sodium [Moles/Vol] 132 mmol/L Low 133-145 [facility] White blood cell (WBC) count Ordered By: Nando Wiggins on 02-12-2025 WBC (Bld) [#/Vol] 8.9 10*3/uL 4.4-11.0 [facility] Absolute lymphocyte countOrd ered By: Nando Edenlakshmidesiree on 02-07-2025 Lymphocytes Auto (Unsp spec) [#/Vol] 1.40 10*3/uL 0.83-4.51 [facility] Anion gap in Serum or Plasma Ordered By: Nando Wiggins on 02-07-2025 Anion gap [Moles/Vol] 15 mmol/L 5-15 [facility] Automated lymphocyte count a s percentage of total leukocytesOrdered By: Nando Wiggins on 02-07-2025 Lymphocytes/100 WBC Auto (Unsp spec) 15.7 % Low 19-41 [facility] BUN/creatinine ratioOrdered By: Nando Wiggins on 02-07-2025 Urea nitrogen/Creatinine [Mass ratio] 9.5 mg/mg Low 10-20 [facility] Basophil percentageOrdered B y: Nando Wiggins on 02-07-2025 Basophils/100 WBC (Bld) 0.6 % 0-1 [facility] Carbon dioxide, total [Moles /volume] in Central venous bloodOrdered By: Nando Wiggins on 02-07-2025 CO2 [Moles/Vol] 25.0 mmol/L 21.0-32.0 [facility] Chloride assayOrdered By: Kathie Wiggins on 02-07-2025 Chloride [Moles/Vol] 93 mmol/L Low 98-108 [facility] Eosinophil percentageOrdered By: fili Wiggins on 02-07-2025 Eosinophils/100 WBC (Bld) 3.5 % 0-5 [facility] Erythrocyte distribution wid th ratioOrdered By: Nando Wiggins on 02-07-2025 Erythrocyte distribution width (RBC) [Ratio] 15.1 % High 11.6-14.6 [facility] Erythrocyte distribution wid th standard deviationOrdered By: Nando Wiggins on 02-07-2025 Erythrocyte distribution width (RBC) [Ratio] 53.2 fl High 35.1-43.9 [facility] Glomerular filtration rate ( GFR) estimation/1.73 sq m using serum, plasma, or whole bOrdered By: Kathiebiancasrinathwolf Edenlakshmidesiree on 02-07-2025 GFR/1.73 sq M.predicted among non-blacks MDRD (S/P/Bld) [Vol rate/Area] 9 mL/min/{1.73_m2} Low >60 [facility] Hematocrit Auto (Bld) [Volum e fraction]Ordered By: Nando Wiggins on 02-07-2025 Hematocrit (Bld) [Volume fraction] 28.2 % Low 40-54 [facility] Hemoglobin measurementOrdere d By: Debsrinathwolf Edenlakshmidesiree on 02-07-2025 Hemoglobin (Bld) [Mass/Vol] 9.0 g/dL Low 13.0-16.5 [facility] Immature granulocytes/100 WB C Auto (Bld)Ordered By: Nando Wiggins on 02-07-2025 Immature granulocytes/100 WBC (Bld) 0.700 % 0.0-0.9 [facility] MCV (mean corpuscular volume ) determinationOrdered By: Nando Wiggins on 02-07-2025 MCV (RBC) [Entitic vol] 96.6 fL High 80-94 [facility] Mean corpuscular hemoglobin (MCH) determinationOrdered By: Nando Edenlakshmidesiree on 02-07-2025 MCH (RBC) [Entitic mass] 30.8 pg 27.0-32.0 [facility] Monocyte percentageOrdered B y: Nando Wiggins on 02-07-2025 Monocytes/100 WBC (Bld) 9.7 % 0-10 [facility] Neutrophil percentageOrdered By: Nando Edenlakshmidesiree on 02-07-2025 Neutrophils/100 WBC (Bld) 69.8 % 47-70 [facility] Platelet countOrdered By: Kathie rehanwolf Edenlakshmidesiree on 02-07-2025 Platelets (Bld) [#/Vol] 231 10*3/uL 150-450 [facility] Potassium measurement (mass/ volume)Ordered By: Nando Wiggins on 02-07-2025 Potassium (Unsp spec) [Mass/Vol] 4.7 mmol/L 3.3-5.1 [facility] RBC Auto (Bld) [#/Vol]Ordere d By: Kathiebiancasrinathwolf Wiggins on 02-07-2025 RBC (Bld) [#/Vol] 2.92 10*6/uL Low 4.6-6.2 [facility] Serum creatinine measurement (mass/volume)Ordered By: Nando Wiggins on 02-07-2025 Creatinine [Mass/Vol] 5.66 mg/dL High 0.70-1.20 [facility] Serum glucose measurement (m ass/volume)Ordered By: Nando Wiggins on 02-07-2025 Glucose [Mass/Vol] 178 mg/dL High 70-99 [facility] Serum or plasma calcium lilli urement (mass/volume)Ordered By: Nando Wiggins on 02-07-2025 Calcium [Mass/Vol] 8.8 mg/dL 7.6-11.0 [facility] Serum or plasma urea nitroge n measurement (mass/volume)Ordered By: Nando Wiggins on 02-07-2025 Urea nitrogen [Mass/Vol] 54 mg/dL High - [facility] Sodium levelOrdered By: Deb quintana Meeklakshmidesiree on 02-07-2025 Sodium [Moles/Vol] 133 mmol/L 133-145 [facility] White blood cell (WBC) count Ordered By: Nando Wiggins on 02-07-2025 WBC (Bld) [#/Vol] 8.9 10*3/uL 4.4-11.0 [facility] Basic Metabolic Profile (BMP )on 02-03-2025 BUN Normal - [facility] Comment on above: Result Comment: Solomon eason via OM: Order cancelled - Patient discharged Performed By: #### L 500.2500, L100.0100 ####[facility] [address] [place], [place], [address] BUN/CRE Normal - [facility] Comment on above: Result Comment: Canc elled via OM: Order cancelled - Patient discharged Performed By: #### L 500.2500, L100.0100 ####[facility] [address] [place], [address] Calcium Normal 7.6-11.0 [facility] Comment on above: Result Comment: Canc elled via OM: Order cancelled - Patient discharged Performed By: #### L 500.2500, L100.0100 ####[facility] [address] [place], [address] CL Normal 98-108 [facility] Comment on above: Result Comment: Canc elled via OM: Order cancelled - Patient discharged Performed By: #### L 500.2500, L100.0100 ####[facility] [address], [address] CO2 Normal 21.0-32.0 [facility] Comment on above: Result Comment: Canc elled via OM: Order cancelled - Patient discharged Performed By: #### L 500.2500, L100.0100 ####[facility] [address] [place], [address] CREAT,SERUM Normal 0.70-1.20 [facility] Comment on above: Result Comment: Canc elled via OM: Order cancelled - Patient discharged Performed By: #### L 500.2500, L100.0100 ####[facility] [address] [place], [address] eGFR Normal >60 [facility] Comment on above: Result Comment: Canc elled via OM: Order cancelled - Patient discharged Performed By: #### L 500.2500, L100.0100 ####[facility] [address] [place], [address] GAP Normal 5-15 [facility] Comment on above: Result Comment: Canc elled via OM: Order cancelled - Patient discharged Performed By: #### L 500.2500, L100.0100 ####[facility] [address] [place], [address] GLU Normal 70-99 [facility] Comment on above: Result Comment: Canc elled via OM: Order cancelled - Patient discharged Performed By: #### L 500.2500, L100.0100 ####[facility] [address] [place], [address] Potassium Normal 3.3-5.1 [facility] Comment on above: Result Comment: Canc elled via OM: Order cancelled - Patient discharged Performed By: #### L 500.2500, L100.0100 ####[facility] [address] [place], [address] Basic Metabolic Profile (BMP) Normal 133-145 [facility] Comment on above: Result Comment: Canc elled via OM: Order cancelled - Patient discharged Performed By: #### L 500.2500, L100.0100 ####[facility] [address] [place], [address] CBC W/Diff, Automatedon 09-1 Absolute Neut Normal 2.0-7.7 [facility] Comment on above: Result Comment: Canc elled via OM: Order cancelled - Patient discharged Performed By: #### L 500.2500, L100.0100 ####[facility] [address] [place], [address] HCT Normal 40-54 [facility] Comment on above: Result Comment: Canc elled via OM: Order cancelled - Patient discharged Performed By: #### L 500.2500, L100.0100 ####[facility] [address] [place], [address] HGB Normal 13.0-16.5 [facility] Comment on above: Result Comment: Canc elled via OM: Order cancelled - Patient discharged Performed By: #### L 500.2500, L100.0100 ####[facility] [address] [place], [address] MCH Normal 27.0-32.0 [facility] Comment on above: Result Comment: Canc elled via OM: Order cancelled - Patient discharged Performed By: #### L 500.2500, L100.0100 ####[facility] [address] [place], [address] MCHC Normal 32-36 [facility] Comment on above: Result Comment: Canc elled via OM: Order cancelled - Patient discharged Performed By: #### L 500.2500, L100.0100 ####[facility] [address] [place], [address] MCV Normal 80-94 [facility] Comment on above: Result Comment: Canc elled via OM: Order cancelled - Patient discharged Performed By: #### L 500.2500, L100.0100 ####[facility] [address] [place], [address] NEUT% Normal 47-70 [facility] Comment on above: Result Comment: Canc elled via OM: Order cancelled - Patient discharged Performed By: #### L 500.2500, L100.0100 ####[facility] [address] [place], [address] PLT Normal 150-450 [facility] Comment on above: Result Comment: Canc elled via OM: Order cancelled - Patient discharged Performed By: #### L 500.2500, L100.0100 ####[facility] [address] [place], [address] RBC Normal 4.6-6.2 [facility] Comment on above: Result Comment: Canc elled via OM: Order cancelled - Patient discharged Performed By: #### L 500.2500, L100.0100 ####[facility] [address] [place], [address] RDW CV Normal 11.6-14.6 [facility] Comment on above: Result Comment: Canc elled via OM: Order cancelled - Patient discharged Performed By: #### L 500.2500, L100.0100 ####[facility] [address] [place], [address] RDW SD Normal 35.1-43.9 [facility] Comment on above: Result Comment: Canc elled via OM: Order cancelled - Patient discharged Performed By: #### L 500.2500, L100.0100 ####[facility] [address] [place], [address] WBC Normal 4.4-11.0 [facility] Comment on above: Result Comment: Canc elled via OM: Order cancelled - Patient discharged Performed By: #### L 500.2500, L100.0100 ####[facility] [address] [place], [address] Basic Metabolic Profile (BMP )on 02-02-2025 BUN Normal 4-19 [facility] Comment on above: Result Comment: Canc elled via OM: Order cancelled - Patient discharged Performed By: #### L 500.2500, L100.0100 ####[facility] [address] [place], [address] BUN/CRE Normal 10-20 [facility] Comment on above: Result Comment: Canc elled via OM: Order cancelled - Patient discharged Performed By: #### L 500.2500, L100.0100 ####[facility] [address] [place], [address] Calcium Normal 7.6-11.0 [facility] Comment on above: Result Comment: Canc elled via OM: Order cancelled - Patient discharged Performed By: #### L 500.2500, L100.0100 ####[facility] [address] [place], [address] CL Normal 98-108 [facility] Comment on above: Result Comment: Canc elled via OM: Order cancelled - Patient discharged Performed By: #### L 500.2500, L100.0100 ####[facility] [address] [place], [address] CO2 Normal 21.0-32.0 [facility] Comment on above: Result Comment: Canc elled via OM: Order cancelled - Patient discharged Performed By: #### L 500.2500, L100.0100 ####[facility] [address] [place], [address] CREAT,SERUM Normal 0.70-1.20 [facility] Comment on above: Result Comment: Canc elled via OM: Order cancelled - Patient discharged Performed By: #### L 500.2500, L100.0100 ####[facility] [address] [place], [address] eGFR Normal >60 [facility] Comment on above: Result Comment: Canc elled via OM: Order cancelled - Patient discharged Performed By: #### L 500.2500, L100.0100 ####[facility] [address] [place], [address] GAP Normal 5-15 [facility] Comment on above: Result Comment: Canc elled via OM: Order cancelled - Patient discharged Performed By: #### L 500.2500, L100.0100 ####[facility] [address] [place], [address] GLU Normal 70-99 [facility] Comment on above: Result Comment: Canc elled via OM: Order cancelled - Patient discharged Performed By: #### L 500.2500, L100.0100 ####[facility] [address] [place], [address] Potassium Normal 3.3-5.1 [facility] Comment on above: Result Comment: Canc elled via OM: Order cancelled - Patient discharged Performed By: #### L 500.2500, L100.0100 ####[facility] [address] [place], [address] Basic Metabolic Profile (BMP) Normal 133-145 [facility] Comment on above: Result Comment: Canc elled via OM: Order cancelled - Patient discharged Performed By: #### L 500.2500, L100.0100 ####[facility] [address] [place], [address] CBC W/Diff, Automatedon - Absolute Neut Normal 2.0-7.7 [facility] Comment on above: Result Comment: Canc elled via OM: Order cancelled - Patient discharged Performed By: #### L 500.2500, L100.0100 ####[facility] [address] [place], [address] HCT Normal 40-54 [facility] Comment on above: Result Comment: Canc elled via OM: Order cancelled - Patient discharged Performed By: #### L 500.2500, L100.0100 ####[facility] [address] [place], [address] HGB Normal 13.0-16.5 [facility] Comment on above: Result Comment: Canc elled via OM: Order cancelled - Patient discharged Performed By: #### L 500.2500, L100.0100 ####[facility] [address] [place], [address] MCH Normal 27.0-32.0 [facility] Comment on above: Result Comment: Canc elled via OM: Order cancelled - Patient discharged Performed By: #### L 500.2500, L100.0100 ####[facility] [address] [place], [address] MCHC Normal 32-36 [facility] Comment on above: Result Comment: Canc elled via OM: Order cancelled - Patient discharged Performed By: #### L 500.2500, L100.0100 ####[facility] [address] [place], [address] MCV Normal 80-94 [facility] Comment on above: Result Comment: Canc elled via OM: Order cancelled - Patient discharged Performed By: #### L 500.2500, L100.0100 ####[facility] [address] [place], [address] NEUT% Normal 47-70 [facility] Comment on above: Result Comment: Canc elled via OM: Order cancelled - Patient discharged Performed By: #### L 500.2500, L100.0100 ####[facility] [address] [place], [address] PLT Normal 150-450 [facility] Comment on above: Result Comment: Canc elled via OM: Order cancelled - Patient discharged Performed By: #### L 500.2500, L100.0100 ####[facility] [address] [place], [address] RBC Normal 4.6-6.2 [facility] Comment on above: Result Comment: Canc elled via OM: Order cancelled - Patient discharged Performed By: #### L 500.2500, L100.0100 ####[facility] [address] [place], [address] RDW CV Normal 11.6-14.6 [facility] Comment on above: Result Comment: Canc elled via OM: Order cancelled - Patient discharged Performed By: #### L 500.2500, L100.0100 ####[facility] [address] [place], [address] RDW SD Normal 35.1-43.9 [facility] Comment on above: Result Comment: Canc elled via OM: Order cancelled - Patient discharged Performed By: #### L 500.2500, L100.0100 ####[facility] [address] [place], [address] WBC Normal 4.4-11.0 [facility] Comment on above: Result Comment: Canc elled via OM: Order cancelled - Patient discharged Performed By: #### L 500.2500, L100.0100 ####[facility] [address] [place], [address] Absolute lymphocyte countOrd ered By: Nando Wiggins on 02-01-2025 Lymphocytes Auto (Unsp spec) [#/Vol] 1.24 10*3/uL 0.83-4.51 [facility] Anion gap in Serum or Plasma Ordered By: Deboffutt afbwolf Wiggins on 02-01-2025 Anion gap [Moles/Vol] 15 mmol/L 5-15 [facility] Automated lymphocyte count a s percentage of total leukocytesOrdered By: Nando Wiggins on 02-01-2025 Lymphocytes/100 WBC Auto (Unsp spec) 18.4 % Low 19-41 [facility] BUN/creatinine ratioOrdered By: Nando Wiggins on 02-01-2025 Urea nitrogen/Creatinine [Mass ratio] 10.9 mg/mg 10- [facility] Basic Metabolic Profile (BMP )on 02-01-2025 BUN Normal 4-19 [facility] Comment on above: Result Comment: Canc elled via OM: Order cancelled - Patient discharged Performed By: #### L 500.2500, L100.0100 ####[facility] [address] [place], [address] BUN/CRE Normal 10-20 [facility] Comment on above: Result Comment: Canc elled via OM: Order cancelled - Patient discharged Performed By: #### L 500.2500, L100.0100 ####[facility] [address] [place], [address] Calcium Normal 7.6-11.0 [facility] Comment on above: Result Comment: Canc elled via OM: Order cancelled - Patient discharged Performed By: #### L 500.2500, L100.0100 ####[facility] [address] [place], [address] CL Normal 98-108 [facility] Comment on above: Result Comment: Canc elled via OM: Order cancelled - Patient discharged Performed By: #### L 500.2500, L100.0100 ####[facility] [address] [place], [address] CO2 Normal 21.0-32.0 [facility] Comment on above: Result Comment: Canc elled via OM: Order cancelled - Patient discharged Performed By: #### L 500.2500, L100.0100 ####[facility] [address] [place], [address] CREAT,SERUM Normal 0.70-1.20 [facility] Comment on above: Result Comment: Canc elled via OM: Order cancelled - Patient discharged Performed By: #### L 500.2500, L100.0100 ####[facility] [address] [place], [address] eGFR Normal >60 [facility] Comment on above: Result Comment: Canc elled via OM: Order cancelled - Patient discharged Performed By: #### L 500.2500, L100.0100 ####[facility] [address] [place], [address] GAP Normal 5-15 [facility] Comment on above: Result Comment: Canc elled via OM: Order cancelled - Patient discharged Performed By: #### L 500.2500, L100.0100 ####[facility] [address], [address] GLU Normal 70-99 [facility] Comment on above: Result Comment: Canc elled via OM: Order cancelled - Patient discharged Performed By: #### L 500.2500, L100.0100 ####[facility] [address] [place], [address] Potassium Normal 3.3-5.1 [facility] Comment on above: Result Comment: Canc elled via OM: Order cancelled - Patient discharged Performed By: #### L 500.2500, L100.0100 ####[facility] [address] [place], [address] Basic Metabolic Profile (BMP) Normal 133-145 [facility] Comment on above: Result Comment: Canc elled via OM: Order cancelled - Patient discharged Performed By: #### L 500.2500, L100.0100 ####[facility] [address] [place], [address] Basophil percentageOrdered B y: Effili Brownee on 02-01-2025 Basophils/100 WBC (Bld) 0.7 % 0-1 [facility] CBC W/Diff, Automatedon 01-21 Absolute Neut Normal 2.0-7.7 [facility] Comment on above: Result Comment: Canc elled via OM: Order cancelled - Patient discharged Performed By: #### L 500.2500, L100.0100 ####[facility] [address] [place], [address] HCT Normal 40-54 [facility] Comment on above: Result Comment: Canc elled via OM: Order cancelled - Patient discharged Performed By: #### L 500.2500, L100.0100 ####[facility] [address] [place], [address] HGB Normal 13.0-16.5 [facility] Comment on above: Result Comment: Canc elled via OM: Order cancelled - Patient discharged Performed By: #### L 500.2500, L100.0100 ####[facility] [address] [place], [address] MCH Normal 27.0-32.0 [facility] Comment on above: Result Comment: Canc elled via OM: Order cancelled - Patient discharged Performed By: #### L 500.2500, L100.0100 ####[facility] [address], [address] MCHC Normal 32-36 [facility] Comment on above: Result Comment: Canc elled via OM: Order cancelled - Patient discharged Performed By: #### L 500.2500, L100.0100 ####[facility] [address] [place], [address] MCV Normal 80-94 [facility] Comment on above: Result Comment: Canc elled via OM: Order cancelled - Patient discharged Performed By: #### L 500.2500, L100.0100 ####[facility] [address] [place], [address] NEUT% Normal 47-70 [facility] Comment on above: Result Comment: Canc elled via OM: Order cancelled - Patient discharged Performed By: #### L 500.2500, L100.0100 ####[facility] [address] [place], [address] PLT Normal 150-450 [facility] Comment on above: Result Comment: Canc elled via OM: Order cancelled - Patient discharged Performed By: #### L 500.2500, L100.0100 ####[facility] [address] [place], [address] RBC Normal 4.6-6.2 [facility] Comment on above: Result Comment: Canc elled via OM: Order cancelled - Patient discharged Performed By: #### L 500.2500, L100.0100 ####[facility] [address] [place], [address] RDW CV Normal 11.6-14.6 [facility] Comment on above: Result Comment: Canc elled via OM: Order cancelled - Patient discharged Performed By: #### L 500.2500, L100.0100 ####[facility] [address] [place], [address] RDW SD Normal 35.1-43.9 [facility] Comment on above: Result Comment: Canc elled via OM: Order cancelled - Patient discharged Performed By: #### L 500.2500, L100.0100 ####[facility] [address] [place], [address] WBC Normal 4.4-11.0 [facility] Comment on above: Result Comment: Canc elled via OM: Order cancelled - Patient discharged Performed By: #### L 500.2500, L100.0100 ####[facility] [address] [place], [address] Carbon dioxide, total [Moles /volume] in Central venous bloodOrdered By: Nando Wiggins on 02-01-2025 CO2 [Moles/Vol] 25.4 mmol/L 21.0-32.0 [facility] Chloride assayOrdered By: Kathie Wiggins on 02-01-2025 Chloride [Moles/Vol] 95 mmol/L Low 98-108 [facility] Eosinophil percentageOrdered By: Nando Wiggins on 02-01-2025 Eosinophils/100 WBC (Bld) 3.7 % 0-5 [facility] Erythrocyte distribution wid th ratioOrdered By: Nnado Wiggins on 02-01-2025 Erythrocyte distribution width (RBC) [Ratio] 16.1 % High 11.6-14.6 [facility] Erythrocyte distribution wid th standard deviationOrdered By: Nando Wiggins on 02-01-2025 Erythrocyte distribution width (RBC) [Ratio] 54.7 fl High 35.1-43.9 [facility] Glomerular filtration rate ( GFR) estimation/1.73 sq m using serum, plasma, or whole bOrdered By: Nando Wiggins on 02-01-2025 GFR/1.73 sq M.predicted among non-blacks MDRD (S/P/Bld) [Vol rate/Area] 13 mL/min/{1.73_m2} Low >60 [facility] Hematocrit Auto (Bld) [Volum e fraction]Ordered By: Nando Brownedesiree on 02-01-2025 Hematocrit (Bld) [Volume fraction] 28.5 % Low 40-54 [facility] Hemoglobin measurementOrdere d By: Nando Wiggins on 02-01-2025 Hemoglobin (Bld) [Mass/Vol] 9.4 g/dL Low 13.0-16.5 [facility] Immature granulocytes/100 WB C Auto (Bld)Ordered By: biancalilian Meeklakshmidesiree on 02-01-2025 Immature granulocytes/100 WBC (Bld) 0.900 % 0.0-0.9 [facility] MCV (mean corpuscular volume ) determinationOrdered By: Nando Meeklakshmidesiree on 02-01-2025 MCV (RBC) [Entitic vol] 94.7 fL High 80-94 [facility] Mean corpuscular hemoglobin (MCH) determinationOrdered By: biancalilian Meeklakshmidesiree on 02-01-2025 MCH (RBC) [Entitic mass] 31.2 pg 27.0-32.0 [facility] Monocyte percentageOrdered B y: Nando Wiggins on 02-01-2025 Monocytes/100 WBC (Bld) 15.3 % High 0-10 [facility] Neutrophil percentageOrdered By: biancaoffutt afbwolf Meekcheko on 02-01-2025 Neutrophils/100 WBC (Bld) 61.0 % 47-70 [facility] Platelet countOrdered By: Kathie Wiggins on 02-01-2025 Platelets (Bld) [#/Vol] 178 10*3/uL 150-450 [facility] Potassium measurement (mass/ volume)Ordered By: Nando Wiggins on 02-01-2025 Potassium (Unsp spec) [Mass/Vol] 4.5 mmol/L 3.3-5.1 [facility] RBC Auto (Bld) [#/Vol]Ordere d By: Nando Meekcheko on 02-01-2025 RBC (Bld) [#/Vol] 3.01 10*6/uL Low 4.6-6.2 [facility] Serum creatinine measurement (mass/volume)Ordered By: Kathiebiancasrinathwolf Wiggins on 02-01-2025 Creatinine [Mass/Vol] 4.22 mg/dL High 0.70-1.20 [facility] Serum glucose measurement (m ass/volume)Ordered By: Kathiefili Wiggins on 02-01-2025 Glucose [Mass/Vol] 221 mg/dL High 70-99 [facility] Serum or plasma calcium lilli urement (mass/volume)Ordered By: Kathiefili Wiggins on 02-01-2025 Calcium [Mass/Vol] 8.2 mg/dL 7.6-11.0 [facility] Serum or plasma urea nitroge n measurement (mass/volume)Ordered By: aKthiebiancaoffutt afbwolf Wiggins on 02-01-2025 Urea nitrogen [Mass/Vol] 46 mg/dL High 4-19 [facility] Sodium levelOrdered By: Deb quintana Meeklakshmidesiree on 02-01-2025 Sodium [Moles/Vol] 135 mmol/L 133-145 [facility] White blood cell (WBC) count Ordered By: Kathiebiancasrinathwolf Wiggins on 02-01-2025 WBC (Bld) [#/Vol] 6.7 10*3/uL 4.4-11.0 [facility] Basic Metabolic Profile (BMP )on 01-31-2025 BUN Normal 4-19 [facility] Comment on above: Result Comment: Canc elled via OM: Order cancelled - Patient discharged Performed By: #### L 500.2500, L100.0100 ####[facility] [address] [place], [address] BUN/CRE Normal 10-20 [facility] Comment on above: Result Comment: Canc elled via OM: Order cancelled - Patient discharged Performed By: #### L 500.2500, L100.0100 ####[facility] [address] [place], [address] Calcium Normal 7.6-11.0 [facility] Comment on above: Result Comment: Canc elled via OM: Order cancelled - Patient discharged Performed By: #### L 500.2500, L100.0100 ####[facility] [address], [address] CL Normal 98-108 [facility] Comment on above: Result Comment: Canc elled via OM: Order cancelled - Patient discharged Performed By: #### L 500.2500, L100.0100 ####[facility] [address] [place], [address] CO2 Normal 21.0-32.0 [facility] Comment on above: Result Comment: Canc elled via OM: Order cancelled - Patient discharged Performed By: #### L 500.2500, L100.0100 ####[facility] [address] [place], [address] CREAT,SERUM Normal 0.70-1.20 [facility] Comment on above: Result Comment: Canc elled via OM: Order cancelled - Patient discharged Performed By: #### L 500.2500, L100.0100 ####[facility] [address] [place], [address] eGFR Normal >60 [facility] Comment on above: Result Comment: Canc elled via OM: Order cancelled - Patient discharged Performed By: #### L 500.2500, L100.0100 ####[facility] [address] [place], [address] GAP Normal 5-15 [facility] Comment on above: Result Comment: Canc elled via OM: Order cancelled - Patient discharged Performed By: #### L 500.2500, L100.0100 ####[facility] [address] [place], [address] GLU Normal 70-99 [facility] Comment on above: Result Comment: Canc elled via OM: Order cancelled - Patient discharged Performed By: #### L 500.2500, L100.0100 ####[facility] [address] [place], [address] Potassium Normal 3.3-5.1 [facility] Comment on above: Result Comment: Canc elled via OM: Order cancelled - Patient discharged Performed By: #### L 500.2500, L100.0100 ####[facility] [address] [place], [address] Basic Metabolic Profile (BMP) Normal 133-145 [facility] Comment on above: Result Comment: Canc elled via OM: Order cancelled - Patient discharged Performed By: #### L 500.2500, L100.0100 ####[facility] [address] [place], [address] CBC W/Diff, Automatedon 09- Absolute Neut Normal 2.0-7.7 [facility] Comment on above: Result Comment: Canc elled via OM: Order cancelled - Patient discharged Performed By: #### L 500.2500, L100.0100 ####[facility] [address] [place], [address] HCT Normal 40-54 [facility] Comment on above: Result Comment: Canc elled via OM: Order cancelled - Patient discharged Performed By: #### L 500.2500, L100.0100 ####[facility] [address] [place], [address] HGB Normal 13.0-16.5 [facility] Comment on above: Result Comment: Canc elled via OM: Order cancelled - Patient discharged Performed By: #### L 500.2500, L100.0100 ####[facility] [address] [place], [address] MCH Normal 27.0-32.0 [facility] Comment on above: Result Comment: Canc elled via OM: Order cancelled - Patient discharged Performed By: #### L 500.2500, L100.0100 ####[facility] [address] [place], [address] MCHC Normal 32-36 [facility] Comment on above: Result Comment: Canc elled via OM: Order cancelled - Patient discharged Performed By: #### L 500.2500, L100.0100 ####[facility] [address] [place], [address] MCV Normal 80-94 [facility] Comment on above: Result Comment: Canc elled via OM: Order cancelled - Patient discharged Performed By: #### L 500.2500, L100.0100 ####[facility] [address] [place], [address] NEUT% Normal 47-70 [facility] Comment on above: Result Comment: Canc elled via OM: Order cancelled - Patient discharged Performed By: #### L 500.2500, L100.0100 ####[facility] [address] [place], [address] PLT Normal 150-450 [facility] Comment on above: Result Comment: Canc elled via OM: Order cancelled - Patient discharged Performed By: #### L 500.2500, L100.0100 ####[facility] [address] [place], [address] RBC Normal 4.6-6.2 [facility] Comment on above: Result Comment: Canc elled via OM: Order cancelled - Patient discharged Performed By: #### L 500.2500, L100.0100 ####[facility] [address] [place], [address] RDW CV Normal 11.6-14.6 [facility] Comment on above: Result Comment: Canc elled via OM: Order cancelled - Patient discharged Performed By: #### L 500.2500, L100.0100 ####[facility] [address] [place], [address] RDW SD Normal 35.1-43.9 [facility] Comment on above: Result Comment: Canc elled via OM: Order cancelled - Patient discharged Performed By: #### L 500.2500, L100.0100 ####[facility] [address] [place], [address] WBC Normal 4.4-11.0 [facility] Comment on above: Result Comment: Canc elled via OM: Order cancelled - Patient discharged Performed By: #### L 500.2500, L100.0100 ####[facility] [address] [place], [address] Basic Metabolic Profile (BMP )on 01-30-2025 BUN Normal 4-19 [facility] Comment on above: Result Comment: Canc elled via OM: Order cancelled - Patient discharged Performed By: #### L 100.0100, L500.2500 ####[facility] [address] [place], [address] BUN/CRE Normal 10-20 [facility] Comment on above: Result Comment: Canc elled via OM: Order cancelled - Patient discharged Performed By: #### L 100.0100, L500.2500 ####[facility] [address] [place], [address] Calcium Normal 7.6-11.0 [facility] Comment on above: Result Comment: Canc elled via OM: Order cancelled - Patient discharged Performed By: #### L 100.0100, L500.2500 ####[facility] [address] [place], [address] CL Normal 98-108 [facility] Comment on above: Result Comment: Canc elled via OM: Order cancelled - Patient discharged Performed By: #### L 100.0100, L500.2500 ####[facility] [address] [place], [address] CO2 Normal 21.0-32.0 [facility] Comment on above: Result Comment: Canc elled via OM: Order cancelled - Patient discharged Performed By: #### L 100.0100, L500.2500 ####[facility] [address] [place], [address] CREAT,SERUM Normal 0.70-1.20 [facility] Comment on above: Result Comment: Canc elled via OM: Order cancelled - Patient discharged Performed By: #### L 100.0100, L500.2500 ####[facility] [address] [place], [address] eGFR Normal >60 [facility] Comment on above: Result Comment: Canc elled via OM: Order cancelled - Patient discharged Performed By: #### L 100.0100, L500.2500 ####[facility] [address] [place], [address] GAP Normal 5-15 [facility] Comment on above: Result Comment: Canc elled via OM: Order cancelled - Patient discharged Performed By: #### L 100.0100, L500.2500 ####[facility] [address] [place], [address] GLU Normal 70-99 [facility] Comment on above: Result Comment: Canc elled via OM: Order cancelled - Patient discharged Performed By: #### L 100.0100, L500.2500 ####[facility] [address] [place], [address] Potassium Normal 3.3-5.1 [facility] Comment on above: Result Comment: Canc elled via OM: Order cancelled - Patient discharged Performed By: #### L 100.0100, L500.2500 ####[facility] [address] [place], [address] Basic Metabolic Profile (BMP) Normal 133-145 [facility] Comment on above: Result Comment: Canc elled via OM: Order cancelled - Patient discharged Performed By: #### L 100.0100, L500.2500 ####[facility] [address] [place], [address] CBC W/Diff, Automatedon 09-1 0-2024 Absolute Neut Normal 2.0-7.7 [facility] Comment on above: Result Comment: Canc elled via OM: Order cancelled - Patient discharged Performed By: #### L 100.0100, L500.2500 ####[facility] [address] [place], [address] HCT Normal 40-54 [facility] Comment on above: Result Comment: Canc elled via OM: Order cancelled - Patient discharged Performed By: #### L 100.0100, L500.2500 ####[facility] [address] [place], [address] HGB Normal 13.0-16.5 [facility] Comment on above: Result Comment: Canc elled via OM: Order cancelled - Patient discharged Performed By: #### L 100.0100, L500.2500 ####[facility] [address] [place], [address] MCH Normal 27.0-32.0 [facility] Comment on above: Result Comment: Canc elled via OM: Order cancelled - Patient discharged Performed By: #### L 100.0100, L500.2500 ####[facility] [address] [place], [address] MCHC Normal 32-36 [facility] Comment on above: Result Comment: Canc elled via OM: Order cancelled - Patient discharged Performed By: #### L 100.0100, L500.2500 ####[facility] [address] [place], [address] MCV Normal 80-94 [facility] Comment on above: Result Comment: Canc elled via OM: Order cancelled - Patient discharged Performed By: #### L 100.0100, L500.2500 ####[facility] [address] [place], [address] NEUT% Normal 47-70 [facility] Comment on above: Result Comment: Canc elled via OM: Order cancelled - Patient discharged Performed By: #### L 100.0100, L500.2500 ####[facility] [address], [address] PLT Normal 150-450 [facility] Comment on above: Result Comment: Canc elled via OM: Order cancelled - Patient discharged Performed By: #### L 100.0100, L500.2500 ####[facility] [address] [place], [address] RBC Normal 4.6-6.2 [facility] Comment on above: Result Comment: Canc elled via OM: Order cancelled - Patient discharged Performed By: #### L 100.0100, L500.2500 ####[facility] [address], [address] RDW CV Normal 11.6-14.6 [facility] Comment on above: Result Comment: Canc elled via OM: Order cancelled - Patient discharged Performed By: #### L 100.0100, L500.2500 ####[facility] [address] [place], [address] RDW SD Normal 35.1-43.9 [facility] Comment on above: Result Comment: Canc elled via OM: Order cancelled - Patient discharged Performed By: #### L 100.0100, L500.2500 ####[facility] [address] [place], [address] WBC Normal 4.4-11.0 [facility] Comment on above: Result Comment: Canc elled via OM: Order cancelled - Patient discharged Performed By: #### L 100.0100, L500.2500 ####[facility] [address] [place], [address] Absolute lymphocyte countOrd ered By: Kimberly Pam on 01-29-2025 Lymphocytes Auto (Unsp spec) [#/Vol] 1.11 10*3/uL 0.83-4.51 [facility] Anion gap in Serum or Plasma Ordered By: Kimberly Orozco on 01-29-2025 Anion gap [Moles/Vol] 14 mmol/L 5-15 [facility] Automated lymphocyte count a s percentage of total leukocytesOrdered By: Kimberly Orozco on 01-29-2025 Lymphocytes/100 WBC Auto (Unsp spec) 13.6 % Low 19-41 [facility] BUN/creatinine ratioOrdered By: Kimberly Orozco on 01-29-2025 Urea nitrogen/Creatinine [Mass ratio] 10.6 mg/mg 10-20 [facility] Basic Metabolic Profile (BMP )on 01-29-2025 BUN/CRE 10.6 RATIO Normal 10-20 [facility] Comment on above: Performed By: #### L 500.2500, L100.0100 ####[facility] [address] [place], [address] Calcium [Mass/Vol] 8.6 mg/dL Normal 7.6-11.0 [facility] Comment on above: Performed By: #### L 500.2500, L100.0100 ####[facility] [address] [place], [address] Chloride [Moles/Vol] 96 mmol/L Low 98-108 [facility] Comment on above: Performed By: #### L 500.2500, L100.0100 ####[facility] [address] [place], [address] CO2 [Moles/Vol] 23.8 mmol/L Normal 21.0-32.0 [facility] Comment on above: Performed By: #### L 500.2500, L100.0100 ####[facility] [address] [place], [address] Creatinine [Mass/Vol] 4.06 mg/dL High 0.70-1.20 [facility] Comment on above: Performed By: #### L 500.2500, L100.0100 ####[facility] [address] [place], [address] ECRCL 14.95 ml/min Low 50-250 [facility] Comment on above: Performed By: #### L 500.2500, L100.0100 ####[facility] [address] [place], [address] GAP 14 Normal 5-15 [facility] Comment on above: Performed By: #### L 500.2500, L100.0100 ####[facility] [address] [place], [address] GFR/1.73 sq M.predicted among non-blacks MDRD (S/P/Bld) [Vol rate/Area] 14 mL/min/{1.73_m2} Low >60 [facility] Comment on above: Result Comment: mL/m in/1.73m2 CKD-EPI Creatinine Equation (2020) Performed By: #### L 500.2500, L100.0100 ####[facility] [address] [place], [address] Glucose [Mass/Vol] 218 mg/dL High 70-99 [facility] Comment on above: Performed By: #### L 500.2499, L100.0100 ####[facility] [address] [place], [address] Potassium [Moles/Vol] 4.1 mmol/L Normal 3.3-5.1 [facility] Comment on above: Performed By: #### L 500.2500, L100.0100 ####[facility] [address] [place], [address] Sodium [Moles/Vol] 134 mmol/L Normal 133-145 [facility] Comment on above: Performed By: #### L 500.2500, L100.0100 ####[facility] [address] [place], [address] Urea nitrogen [Mass/Vol] 43 mg/dL High 4-19 [facility] Comment on above: Performed By: #### L 500.2500, L100.0100 ####[facility] [address] [place], [address] Basophil percentageOrdered B y: Kimberly Orozco on 01-29-2025 Basophils/100 WBC (Bld) 0.6 % 0-1 [facility] Bedside Glucoseon 01-29-2025 FINGERSTICK GLU 198 mg/dL High 74-106 [facility] Comment on above: Result Comment: FANG GEMENT OF PATIENT CARE PER NURSING PROTOCOL Performed By: #### L 501.080 ####[facility] [address] [place], [address] FINGERSTICK GLU 207 mg/dL High 74-106 [facility] Comment on above: Result Comment: FANG GEMENT OF PATIENT CARE PER NURSING PROTOCOL Performed By: #### L 501.080 ####[facility] [address] [place], [address] CBC W/Diff, Automatedon Absolute Lymph 1.11 X10 3/uL Normal 0.83-4.51 [facility] Comment on above: Performed By: #### L 500.2500, L100.0100 ####[facility] [address] [place], [address] Absolute Neut 5.6 X10 3/uL Normal 2.0-7.7 [facility] Comment on above: Performed By: #### L 500.2500, L100.0100 ####[facility] [address] [place], [address] Basophils/100 WBC (Bld) 0.6 % Normal 0-1 [facility] Comment on above: Performed By: #### L 500.2500, L100.0100 ####[facility] [address] [place], [address] Eosinophils/100 WBC (Bld) 2.3 % Normal 0-5 [facility] Comment on above: Performed By: #### L 500.2500, L100.0100 ####[facility] [address] [place], [address] Erythrocyte distribution width (RBC) [Ratio] 17.0 % High 11.6-14.6 [facility] Comment on above: Performed By: #### L 500.2500, L100.0100 ####[facility] [address] [place], [address] Hematocrit (Bld) [Volume fraction] 27.8 % Low 40-54 [facility] Comment on above: Performed By: #### L 500.2500, L100.0100 ####[facility] [address] [place], [address] Hemoglobin (Bld) [Mass/Vol] 9.1 g/dL Low 13.0-16.5 [facility] Comment on above: Performed By: #### L 500.2500, L100.0100 ####[facility] [address] [place], [address] IG% 0.900 Normal 0.0-0.9 [facility] Comment on above: Result Comment: IG% - Immature Granulocytes (promyelocytes, myelocytes andmetamyelocytes) > 1% indicates that a LEFT SHIFT is Present. Performed By: #### L 500.2500, L100.0100 ####[facility] [address] [place], [address] Lymphocytes/100 WBC (Bld) 13.6 % Low 19-41 [facility] Comment on above: Performed By: #### L 500.2500, L100.0100 ####[facility] [facility] [address] [place], [address] MCH (RBC) [Entitic mass] 30.4 pg Normal 27.0-32.0 [facility] Comment on above: Performed By: #### L 500.2500, L100.0100 ####[facility] [address] [place], [address] MCHC (RBC) [Mass/Vol] 32.7 g/dL Normal 32-36 [facility] Comment on above: Performed By: #### L 500.2500, L100.0100 ####[facility] [address] [place], [address] MCV (RBC) [Entitic vol] 93.0 fL Normal 80-94 [facility] Comment on above: Performed By: #### L 500.2500, L100.0100 ####[facility] [address] [place], [address] Monocytes/100 WBC (Bld) 13.7 % High 0-10 [facility] Comment on above: Performed By: #### L 500.2500, L100.0100 ####[facility] [address] [place], [address] Neutrophils/100 WBC (Bld) 68.9 % Normal 47-70 [facility] Comment on above: Performed By: #### L 500.2500, L100.0100 ####[facility] [address] [place], [address] Nucleated RBC (Bld) [#/Vol] 0 10*3/uL Normal 0-5 [facility] Comment on above: Performed By: #### L 500.2500, L100.0100 ####[facility] [address] [place], [address] Platelet mean volume (Bld) [Entitic vol] 11.7 fL Normal 6.2-12.0 [facility] Comment on above: Performed By: #### L 500.2500, L100.0100 ####[facility] [address] [place], [address] Platelets (Bld) [#/Vol] 137 10*3/uL Low 150-450 [facility] Comment on above: Performed By: #### L 500.2500, L100.0100 ####[facility] [address] [place], [address] RBC (Bld) [#/Vol] 2.99 10*6/uL Low 4.6-6.2 [facility] Comment on above: Performed By: #### L 500.2500, L100.0100 ####[facility] [address] [place], [address] RDW SD 57.5 fl High 35.1-43.9 [facility] Comment on above: Performed By: #### L 500.2500, L100.0100 ####[facility] [address] [place], [address] WBC (Bld) [#/Vol] 8.2 10*3/uL Normal 4.4-11.0 [facility] Comment on above: Performed By: #### L 500.2500, L100.0100 ####[facility] [address] [place], [address] Carbon dioxide, total [Moles /volume] in Central venous bloodOrdered By: Kimberly Orozco on 01-29-2025 CO2 [Moles/Vol] 23.8 mmol/L 21.0-32.0 [facility] Chloride assayOrdered By: Aishwarya Orozco on 01-29-2025 Chloride [Moles/Vol] 96 mmol/L Low 98-108 [facility] Eosinophil percentageOrdered By: Kimberly Orozco on 01-29-2025 Eosinophils/100 WBC (Bld) 2.3 % 0-5 [facility] Erythrocyte distribution wid th ratioOrdered By: Kimberly Orozco on 01-29-2025 Erythrocyte distribution width (RBC) [Ratio] 17.0 % High 11.6-14.6 [facility] Erythrocyte distribution wid th standard deviationOrdered By: Kimberly Orozco on 01-29-2025 Erythrocyte distribution width (RBC) [Ratio] 57.5 fl High 35.1-43.9 [facility] Glomerular filtration rate ( GFR) estimation/1.73 sq m using serum, plasma, or whole bOrdered By: Kimberly Orozco on 01-29-2025 GFR/1.73 sq M.predicted among non-blacks MDRD (S/P/Bld) [Vol rate/Area] 14 mL/min/{1.73_m2} Low >60 [facility] Glucose measurement at [facility] deOrdered By: Jaswant Montgomery on 01-29-2025 Glucose [Mass/Vol] 198 mg/dL High 74-106 [facility] Hematocrit Auto (Bld) [Volum e fraction]Ordered By: Kimberly Orozco on 01-29-2025 Hematocrit (Bld) [Volume fraction] 27.8 % Low 40-54 [facility] Hemoglobin measurementOrdere d By: Kimberly Orozco on 01-29-2025 Hemoglobin (Bld) [Mass/Vol] 9.1 g/dL Low 13.0-16.5 [facility] Immature granulocytes/100 WB C Auto (Bld)Ordered By: Kimberly Orozco 01-29-2025 Immature granulocytes/100 WBC (Bld) 0.900 % 0.0-0.9 [facility] MCV (mean corpuscular volume ) determinationOrdered By: Kimberly Orozco on 01-29-2025 MCV (RBC) [Entitic vol] 93.0 fL 80-94 [facility] Mean corpuscular hemoglobin (MCH) determinationOrdered By: Kimberly Orozco 01-29-2025 MCH (RBC) [Entitic mass] 30.4 pg 27.0-32.0 [facility] Monocyte percentageOrdered B y: Kimberly Orozco on 01-29-2025 Monocytes/100 WBC (Bld) 13.7 % High 0-10 [facility] Neutrophil percentageOrdered By: Kimberly Orozco on 01-29-2025 Neutrophils/100 WBC (Bld) 68.9 % 47-70 [facility] Platelet countOrdered By: Na aishwarya Orozco on 01-29-2025 Platelets (Bld) [#/Vol] 137 10*3/uL Low 150-450 [facility] Potassium measurement (mass/ volume)Ordered By: Kimberly Orozco on 01-29-2025 Potassium (Unsp spec) [Mass/Vol] 4.1 mmol/L 3.3-5.1 [facility] RBC Auto (Bld) [#/Vol]Ordere d By: Kimberly Orozco on 01-29-2025 RBC (Bld) [#/Vol] 2.99 10*6/uL Low 4.6-6.2 [facility] Serum creatinine measurement (mass/volume)Ordered By: Kimberly Orozco on 01-29-2025 Creatinine [Mass/Vol] 4.06 mg/dL High 0.70-1.20 [facility] Serum glucose measurement (m ass/volume)Ordered By: Kimberly Orozco on 01-29-2025 Glucose [Mass/Vol] 218 mg/dL High 70-99 [facility] Serum or plasma calcium lilli urement (mass/volume)Ordered By: Kimberly Orozco on 01-29-2025 Calcium [Mass/Vol] 8.6 mg/dL 7.6-11.0 [facility] Serum or plasma urea nitroge n measurement (mass/volume)Ordered By: Kimberly Orozco on 01-29-2025 Urea nitrogen [Mass/Vol] 43 mg/dL High 4-19 [facility] Sodium levelOrdered By: Kimberly Orozco on 01-29-2025 Sodium [Moles/Vol] 134 mmol/L 133-145 [facility] White blood cell (WBC) count Ordered By: Kimberly Orozco on 01-29-2025 WBC (Bld) [#/Vol] 8.2 10*3/uL 4.4-11.0 [facility] Basic Metabolic Profile (BMP )on 01-28-2025 BUN/CRE 10.4 RATIO Normal 10-20 [facility] Comment on above: Performed By: #### L 100.0100, L500.2500 ####[facility] [address] [place], [address] Calcium [Mass/Vol] 8.2 mg/dL Normal 7.6-11.0 [facility] Comment on above: Performed By: #### L 100.0100, L500.2500 ####[facility] [address] [place], [address] Chloride [Moles/Vol] 93 mmol/L Low 98-108 [facility] Comment on above: Performed By: #### L 100.0100, L500.2500 ####[facility] [address] [place], [address] CO2 [Moles/Vol] 21.9 mmol/L Normal 21.0-32.0 [facility] Comment on above: Performed By: #### L 100.0100, L500.2500 ####[facility] [address] [place], [address] Creatinine [Mass/Vol] 5.58 mg/dL High 0.70-1.20 [facility] Comment on above: Performed By: #### L 100.0100, L500.2500 ####[facility] [address] [place], [address] ECRCL 10.91 ml/min Low 50-250 [facility] Comment on above: Performed By: #### L 100.0100, L500.2500 ####[facility] [address] [place], [address] GAP 15 Normal 5-15 [facility] Comment on above: Performed By: #### L 100.0100, L500.2500 ####[facility] [address] [place], [address] GFR/1.73 sq M.predicted among non-blacks MDRD (S/P/Bld) [Vol rate/Area] 9 mL/min/{1.73_m2} Low >60 [facility] Comment on above: Result Comment: mL/m in/1.73m2 CKD-EPI Creatinine Equation (2020) Performed By: #### L 100.0100, L500.2500 ####[facility] [address] [place], [address] Glucose [Mass/Vol] 158 mg/dL High 70-99 [facility] Comment on above: Performed By: #### L 100.0100, L500.2500 ####[facility] [address] [place], [address] Potassium [Moles/Vol] 5.5 mmol/L High 3.3-5.1 [facility] Comment on above: Performed By: #### L 100.0100, L500.2500 ####[facility] [address] [place], [address] Sodium [Moles/Vol] 130 mmol/L Low 133-145 [facility] Comment on above: Performed By: #### L 100.0100, L500.2500 ####[facility] [address] [place], [address] Urea nitrogen [Mass/Vol] 58 mg/dL High 4-19 [facility] Comment on above: Performed By: #### L 100.0100, L500.2500 ####[facility] [address] [place], [address] Bedside Glucoseon 01-28-2025 FINGERSTICK GLU 208 mg/dL High 74-106 [facility] Comment on above: Result Comment: FANG GEMENT OF PATIENT CARE PER NURSING PROTOCOL Performed By: #### L 501.080 ####[facility] [address] [place], [address] FINGERSTICK GLU 220 mg/dL High 74-106 [facility] Comment on above: Result Comment: FANG GEMENT OF PATIENT CARE PER NURSING PROTOCOL Performed By: #### L 501.080 ####[facility] [address] [place], [address] FINGERSTICK GLU 192 mg/dL High 74-106 [facility] Comment on above: Result Comment: FANG GEMENT OF PATIENT CARE PER NURSING PROTOCOL Performed By: #### L 501.080 ####[facility] [address] [place], [address] FINGERSTICK GLU 148 mg/dL High 74-106 [facility] Comment on above: Result Comment: FANG GEMENT OF PATIENT CARE PER NURSING PROTOCOL Performed By: #### L 501.080 ####[facility] [address] [place], [address] CBC W/Diff, Automatedon 09-0 8-2024 Absolute Lymph 1.26 X10 3/uL Normal 0.83-4.51 [facility] Comment on above: Performed By: #### L 100.0100, L500.2500 ####[facility] [address] [place], [address] Absolute Neut 6.2 X10 3/uL Normal 2.0-7.7 [facility] Comment on above: Performed By: #### L 100.0100, L500.2500 ####[facility] [address] [place], [address] Basophils/100 WBC (Bld) 0.6 % Normal 0-1 [facility] Comment on above: Performed By: #### L 100.0100, L500.2500 ####[facility] [address] [place], [address] Eosinophils/100 WBC (Bld) 2.1 % Normal 0-5 [facility] Comment on above: Performed By: #### L 100.0100, L500.2500 ####[facility] [address] [place], [address] Erythrocyte distribution width (RBC) [Ratio] 15.4 % High 11.6-14.6 [facility] Comment on above: Performed By: #### L 100.0100, L500.2500 ####[facility] [address] [place], [address] Hematocrit (Bld) [Volume fraction] 22.4 % Low 40-54 [facility] Comment on above: Performed By: #### L 100.0100, L500.2500 ####[facility] [address] [place], [address] Hemoglobin (Bld) [Mass/Vol] 7.3 g/dL Low 13.0-16.5 [facility] Comment on above: Performed By: #### L 100.0100, L500.2500 ####[facility] [address] [place], [address] IG% 0.600 Normal 0.0-0.9 [facility] Comment on above: Result Comment: IG% - Immature Granulocytes (promyelocytes, myelocytes andmetamyelocytes) > 1% indicates that a LEFT SHIFT is Present. Performed By: #### L 100.0100, L500.2500 ####[facility] [address] [place], [address] Lymphocytes/100 WBC (Bld) 14.0 % Low 19-41 [facility] Comment on above: Performed By: #### L 100.0100, L500.2500 ####[facility] [address] [place], [address] MCH (RBC) [Entitic mass] 31.2 pg Normal 27.0-32.0 [facility] Comment on above: Performed By: #### L 100.0100, L500.2500 ####[facility] [address] [place], [address] MCHC (RBC) [Mass/Vol] 32.6 g/dL Normal 32-36 [facility] Comment on above: Performed By: #### L 100.0100, L500.2500 ####[facility] [address] [place], [address] MCV (RBC) [Entitic vol] 95.7 fL High 80-94 [facility] Comment on above: Performed By: #### L 100.0100, L500.2500 ####[facility] [address] [place], [address] Monocytes/100 WBC (Bld) 13.3 % High 0-10 [facility] Comment on above: Performed By: #### L 100.0100, L500.2500 ####[facility] [address] [place], [address] Neutrophils/100 WBC (Bld) 69.4 % Normal 47-70 [facility] Comment on above: Performed By: #### L 100.0100, L500.2500 ####[facility] [address] [place], [address] Nucleated RBC (Bld) [#/Vol] 0 10*3/uL Normal 0-5 [facility] Comment on above: Performed By: #### L 100.0100, L500.2500 ####[facility] [address] [place], [address] Platelet mean volume (Bld) [Entitic vol] 11.4 fL Normal 6.2-12.0 [facility] Comment on above: Performed By: #### L 100.0100, L500.2500 ####[facility] [address] [place], [address] Platelets (Bld) [#/Vol] 135 10*3/uL Low 150-450 [facility] Comment on above: Performed By: #### L 100.0100, L500.2500 ####[facility] [address] [place], [address] RBC (Bld) [#/Vol] 2.34 10*6/uL Low 4.6-6.2 [facility] Comment on above: Performed By: #### L 100.0100, L500.2500 ####[facility] [address] [place], [address] RDW SD 53.7 fl High 35.1-43.9 [facility] Comment on above: Performed By: #### L 100.0100, L500.2500 ####[facility] [address] [place], [address] WBC (Bld) [#/Vol] 9.0 10*3/uL Normal 4.4-11.0 [facility] Comment on above: Performed By: #### L 100.0100, L500.2500 ####[facility] [address] [place], [address] Consultation - Nephrologyon 01-28-2025 Consultation - Nephrology Normal [facility] Electrocardiogram reportOrde red By: Zenaida Cooper on 01-28-2025 EKG study [facility] Other Phone: HH, Hemoglobin AND Hematocri ton 01-28-2025 Hematocrit (Bld) [Volume fraction] 32.0 % Low 40-54 [facility] Comment on above: Performed By: #### L 100.0600 ####[facility] [address] [place], [address] Hemoglobin (Bld) [Mass/Vol] 10.7 g/dL Low 13.0-16.5 [facility] Comment on above: Performed By: #### L 100.0600 ####[facility] [address] [place], [address] Basic Metabolic Profile (BMP )on 01-27-2025 BUN/CRE 9.4 RATIO Low 10-20 [facility] Comment on above: Performed By: #### L 500.2500, L100.0100 ####[facility] [address] [place], [address] Calcium [Mass/Vol] 8.7 mg/dL Normal 7.6-11.0 [facility] Comment on above: Performed By: #### L 500.2500, L100.0100 ####[facility] [address] [place], [address] Chloride [Moles/Vol] 97 mmol/L Low 98-108 [facility] Comment on above: Performed By: #### L 500.2500, L100.0100 ####[facility] [address] [place], [address] CO2 [Moles/Vol] 23.2 mmol/L Normal 21.0-32.0 [facility] Comment on above: Performed By: #### L 500.2500, L100.0100 ####[facility] [address] [place], [address] Creatinine [Mass/Vol] 4.35 mg/dL High 0.70-1.20 [facility] Comment on above: Performed By: #### L 500.2500, L100.0100 ####[facility] [address] [place], [address] ECRCL 13.94 ml/min Low 50-250 [facility] Comment on above: Performed By: #### L 500.2500, L100.0100 ####[facility] [address] [place], [address] GAP 15 Normal 5-15 [facility] Comment on above: Performed By: #### L 500.2500, L100.0100 ####[facility] [address] [place], [address] GFR/1.73 sq M.predicted among non-blacks MDRD (S/P/Bld) [Vol rate/Area] 12 mL/min/{1.73_m2} Low >60 [facility] Comment on above: Result Comment: mL/m in/1.73m2 CKD-EPI Creatinine Equation (2020) Performed By: #### L 500.2500, L100.0100 ####[facility] [address] [place], [address] Glucose [Mass/Vol] 144 mg/dL High 70-99 [facility] Comment on above: Performed By: #### L 500.2500, L100.0100 ####[facility] [address] [place], [address] Potassium [Moles/Vol] 5.2 mmol/L High 3.3-5.1 [facility] Comment on above: Performed By: #### L 500.2500, L100.0100 ####[facility] [address] [place], [address] Sodium [Moles/Vol] 134 mmol/L Normal 133-145 [facility] Comment on above: Performed By: #### L 500.2500, L100.0100 ####[facility] [address] [place], [address] Urea nitrogen [Mass/Vol] 41 mg/dL High 4-19 [facility] Comment on above: Performed By: #### L 500.2500, L100.0100 ####[facility] [address] [place], [address] Bedside Glucoseon 01-27-2025 FINGERSTICK GLU 217 mg/dL High 74-106 [facility] Comment on above: Result Comment: FANG GEMENT OF PATIENT CARE PER NURSING PROTOCOL Performed By: #### L 501.080 ####[facility] [address] [place], [address] FINGERSTICK GLU 159 mg/dL High 74-106 [facility] Comment on above: Result Comment: FANG GEMENT OF PATIENT CARE PER NURSING PROTOCOL Performed By: #### L 501.080 ####[facility] [address], [address] FINGERSTICK GLU 156 mg/dL High 74-106 [facility] Comment on above: Result Comment: FANG GEMENT OF PATIENT CARE PER NURSING PROTOCOL Performed By: #### L 501.080 ####[facility] [address] [place], [address] FINGERSTICK GLU 151 mg/dL High 74-106 [facility] Comment on above: Result Comment: FANG GEMENT OF PATIENT CARE PER NURSING PROTOCOL Performed By: #### L 501.080 ####[facility] [address] [place], [address] CBC W/Diff, Automatedon 09-0 7-2025 Absolute Lymph 1.03 X10 3/uL Normal 0.83-4.51 [facility] Comment on above: Performed By: #### L 500.2500, L100.0100 ####[facility] [address] [place], [address] Absolute Neut 10.6 X10 3/uL High 2.0-7.7 [facility] Comment on above: Performed By: #### L 500.2500, L100.0100 ####[facility] [address], [address] Basophils/100 WBC (Bld) 0.5 % Normal 0-1 [facility] Comment on above: Performed By: #### L 500.2500, L100.0100 ####[facility] [address] [place], [address] Eosinophils/100 WBC (Bld) 0.3 % Normal 0-5 [facility] Comment on above: Performed By: #### L 500.2500, L100.0100 ####[facility] [address], [address] Erythrocyte distribution width (RBC) [Ratio] 15.7 % High 11.6-14.6 [facility] Comment on above: Performed By: #### L 500.2500, L100.0100 ####[facility] [address] [place], [address] Hematocrit (Bld) [Volume fraction] 27.0 % Low 40-54 [facility] Comment on above: Performed By: #### L 500.2500, L100.0100 ####[facility] [address] [place], [address] Hemoglobin (Bld) [Mass/Vol] 8.5 g/dL Low 13.0-16.5 [facility] Comment on above: Performed By: #### L 500.2500, L100.0100 ####[facility] [address] [place], [address] IG% 0.600 Normal 0.0-0.9 [facility] Comment on above: Result Comment: IG% - Immature Granulocytes (promyelocytes, myelocytes andmetamyelocytes) > 1% indicates that a LEFT SHIFT is Present. Performed By: #### L 500.2500, L100.0100 ####[facility] [address] [place], [address] Lymphocytes/100 WBC (Bld) 7.9 % Low 19-41 [facility] Comment on above: Performed By: #### L 500.2500, L100.0100 ####[facility] [address] [place], [address] MCH (RBC) [Entitic mass] 30.8 pg Normal 27.0-32.0 [facility] Comment on above: Performed By: #### L 500.2500, L100.0100 ####[facility] [address] [place], [address] MCHC (RBC) [Mass/Vol] 31.5 g/dL Low 32-36 [facility] Comment on above: Performed By: #### L 500.2500, L100.0100 ####[facility] [address] [place], [address] MCV (RBC) [Entitic vol] 97.8 fL High 80-94 [facility] Comment on above: Performed By: #### L 500.2500, L100.0100 ####[facility] [address] [place], [address] Monocytes/100 WBC (Bld) 9.5 % Normal 0-10 [facility] Comment on above: Performed By: #### L 500.2500, L100.0100 ####[facility] [address] [place], [address] Neutrophils/100 WBC (Bld) 81.2 % High 47-70 [facility] Comment on above: Performed By: #### L 500.2500, L100.0100 ####[facility] [address] [place], [address] Nucleated RBC (Bld) [#/Vol] 0 10*3/uL Normal 0-5 [facility] Comment on above: Performed By: #### L 500.2500, L100.0100 ####[facility] [address] [place], [address] Platelet mean volume (Bld) [Entitic vol] 11.8 fL Normal 6.2-12.0 [facility] Comment on above: Performed By: #### L 500.2500, L100.0100 ####[facility] [address] [place], [address] Platelets (Bld) [#/Vol] 144 10*3/uL Low 150-450 [facility] Comment on above: Performed By: #### L 500.2500, L100.0100 ####[facility] [address] [place], [address] RBC (Bld) [#/Vol] 2.76 10*6/uL Low 4.6-6.2 [facility] Comment on above: Performed By: #### L 500.2500, L100.0100 ####[facility] [address] [place], [address] RDW SD 55.6 fl High 35.1-43.9 [facility] Comment on above: Performed By: #### L 500.2500, L100.0100 ####[facility] [address] [place], [address] WBC (Bld) [#/Vol] 13.0 10*3/uL High 4.4-11.0 [facility] Comment on above: Performed By: #### L 500.2500, L100.0100 ####[facility] [address] [place], [address] Basic Metabolic Profile (BMP )on 01-26-2025 BUN/CRE 9.2 RATIO Low 10-20 [facility] Comment on above: Performed By: #### L 500.2500 ####[facility] [address] [place], [address] Calcium [Mass/Vol] 9.0 mg/dL Normal 7.6-11.0 [facility] Comment on above: Performed By: #### L 500.2500 ####[facility] [address] [place], [address] Chloride [Moles/Vol] 99 mmol/L Normal 98-108 [facility] Comment on above: Performed By: #### L 500.2500 ####[facility] [address] [place], [address] CO2 [Moles/Vol] 26.1 mmol/L Normal 21.0-32.0 [facility] Comment on above: Performed By: #### L 500.2500 ####[facility] [address] [place], [address] Creatinine [Mass/Vol] 3.63 mg/dL High 0.70-1.20 [facility] Comment on above: Performed By: #### L 500.2500 ####[facility] [address] [place], [address] ECRCL 16.71 ml/min Low 50-250 [facility] Comment on above: Performed By: #### L 500.2500 ####[facility] [address] [place], [address] GAP 11 Normal 5-15 [facility] Comment on above: Performed By: #### L 500.2500 ####[facility] [address] [place], [address] GFR/1.73 sq M.predicted among non-blacks MDRD (S/P/Bld) [Vol rate/Area] 16 mL/min/{1.73_m2} Low >60 [facility] Comment on above: Result Comment: mL/m in/1.73m2 CKD-EPI Creatinine Equation (2020) Performed By: #### L 500.2500 ####[facility] [address] [place], [address] Glucose [Mass/Vol] 106 mg/dL High 70-99 [facility] Comment on above: Performed By: #### L 500.2500 ####[facility] [address] [place], [address] Potassium [Moles/Vol] 4.2 mmol/L Normal 3.3-5.1 [facility] Comment on above: Performed By: #### L 500.2500 ####[facility] [address] [place], [address] Sodium [Moles/Vol] 136 mmol/L Normal 133-145 [facility] Comment on above: Performed By: #### L 500.2500 ####[facility] [address] [place], [address] Urea nitrogen [Mass/Vol] 33 mg/dL High 4-19 [facility] Comment on above: Performed By: #### L 500.2500 ####[facility] [address] [place], [address] BUN/CRE 9.9 RATIO Low 10-20 [facility] Comment on above: Performed By: #### L 100.0100, L500.2500 ####[facility] [address] [place], [address] Calcium [Mass/Vol] 8.9 mg/dL Normal 7.6-11.0 [facility] Comment on above: Performed By: #### L 100.0100, L500.2500 ####[facility] [address] [place], [address] Chloride [Moles/Vol] 95 mmol/L Low 98-108 [facility] Comment on above: Performed By: #### L 100.0100, L500.2500 ####[facility] [address] [place], [address] CO2 [Moles/Vol] 25.7 mmol/L Normal 21.0-32.0 [facility] Comment on above: Performed By: #### L 100.0100, L500.2500 ####[facility] [address] [place], [address] Creatinine [Mass/Vol] 5.65 mg/dL High 0.70-1.20 [facility] Comment on above: Performed By: #### L 100.0100, L500.2500 ####[facility] [address] [place], [address] ECRCL 10.84 ml/min Low 50-250 [facility] Comment on above: Performed By: #### L 100.0100, L500.2500 ####[facility] [address] [place], [address] GAP 14 Normal 5-15 [facility] Comment on above: Performed By: #### L 100.0100, L500.2500 ####[facility] [address] [place], [address] GFR/1.73 sq M.predicted among non-blacks MDRD (S/P/Bld) [Vol rate/Area] 9 mL/min/{1.73_m2} Low >60 [facility] Comment on above: Result Comment: mL/m in/1.73m2 CKD-EPI Creatinine Equation (2020) Performed By: #### L 100.0100, L500.2500 ####[facility] [address] [place], [address] Glucose [Mass/Vol] 150 mg/dL High 70-99 [facility] Comment on above: Performed By: #### L 100.0100, L500.2500 ####[facility] [address] [place], [address] Potassium [Moles/Vol] 5.0 mmol/L Normal 3.3-5.1 [facility] Comment on above: Performed By: #### L 100.0100, L500.2500 ####[facility] [address] [place], [address] Sodium [Moles/Vol] 134 mmol/L Normal 133-145 [facility] Comment on above: Performed By: #### L 100.0100, L500.2500 ####[facility] [address] [place], [address] Urea nitrogen [Mass/Vol] 56 mg/dL High 4-19 [facility] Comment on above: Performed By: #### L 100.0100, L500.2500 ####[facility] [address] [place], [address] Bedside Glucoseon 01-26-2025 FINGERSTICK GLU 138 mg/dL High 74-[address] [place] [address] Comment on above: Result Comment: FANG GEMENT OF PATIENT CARE PER NURSING PROTOCOL Performed By: #### L 501.080 ####[facility] [address] [place], [address] FINGERSTICK GLU 130 mg/dL High 74-106 [facility] Comment on above: Result Comment: FANG GEMENT OF PATIENT CARE PER NURSING PROTOCOL Performed By: #### L 501.080 ####[facility] [address] [place], [address] FINGERSTICK GLU 130 mg/dL High -106 [facility] Comment on above: Result Comment: FANG GEMENT OF PATIENT CARE PER NURSING PROTOCOL Performed By: #### L 501.080 ####[facility] [address] [place], [address] FINGERSTICK GLU 153 mg/dL High [address] [place] [address] Comment on above: Result Comment: FANG GEMENT OF PATIENT CARE PER NURSING PROTOCOL Performed By: #### L 501.080 ####[facility] [address] [place], [address] CBC W/Diff, Automatedon 09 Absolute Lymph 1.64 X10 3/uL Normal 0.83-4.51 [facility] Comment on above: Performed By: #### L 100.0100, L500.2500 ####[facility] [address] [place], [address] Absolute Neut 7.3 X10 3/uL Normal 2.0-7.7 [facility] Comment on above: Performed By: #### L 100.0100, L500.2500 ####[facility] [address] [place], [address] Basophils/100 WBC (Bld) 0.6 % Normal 0-1 [facility] Comment on above: Performed By: #### L 100.0100, L500.2500 ####[facility] [address] [place], [address] Eosinophils/100 WBC (Bld) 1.1 % Normal 0-5 [facility] Comment on above: Performed By: #### L 100.0100, L500.2500 ####[facility] [address] [place], [address] Erythrocyte distribution width (RBC) [Ratio] 15.3 % High 11.6-14.6 [facility] Comment on above: Performed By: #### L 100.0100, L500.2500 ####[facility] [address] [place], [address] Hematocrit (Bld) [Volume fraction] 28.0 % Low 40-54 [facility] Comment on above: Performed By: #### L 100.0100, L500.2500 ####[facility] [address] [place], [address] Hemoglobin (Bld) [Mass/Vol] 9.1 g/dL Low 13.0-16.5 [facility] Comment on above: Performed By: #### L 100.0100, L500.2500 ####[facility] [address] [place], [address] IG% 0.500 Normal 0.0-0.9 [facility] Comment on above: Result Comment: IG% - Immature Granulocytes (promyelocytes, myelocytes andmetamyelocytes) > 1% indicates that a LEFT SHIFT is Present. Performed By: #### L 100.0100, L500.2500 ####[facility] [address] [place], [address] Lymphocytes/100 WBC (Bld) 15.9 % Low 19-41 [facility] Comment on above: Performed By: #### L 100.0100, L500.2500 ####[facility] [address] [place], [address] MCH (RBC) [Entitic mass] 30.8 pg Normal 27.0-32.0 [facility] Comment on above: Performed By: #### L 100.0100, L500.2500 ####[facility] [address] [place], [address] MCHC (RBC) [Mass/Vol] 32.5 g/dL Normal 32-36 [facility] Comment on above: Performed By: #### L 100.0100, L500.2500 ####[facility] [address] [place], [address] MCV (RBC) [Entitic vol] 94.9 fL High 80-94 [facility] Comment on above: Performed By: #### L 100.0100, L500.2500 ####[facility] [address] [place], [address] Monocytes/100 WBC (Bld) 10.8 % High 0-10 [facility] Comment on above: Performed By: #### L 100.0100, L500.2500 ####[facility] [address] [place], [address] Neutrophils/100 WBC (Bld) 71.1 % High 47-70 [facility] Comment on above: Performed By: #### L 100.0100, L500.2500 ####[facility] [address] [place], [address] Nucleated RBC (Bld) [#/Vol] 0 10*3/uL Normal 0-5 [facility] Comment on above: Performed By: #### L 100.0100, L500.2500 ####[facility] [address] [place], [address] Platelet mean volume (Bld) [Entitic vol] 11.9 fL Normal 6.2-12.0 [facility] Comment on above: Performed By: #### L 100.0100, L500.2500 ####[facility] [address] [place], [address] Platelets (Bld) [#/Vol] 163 10*3/uL Normal 150-450 [facility] Comment on above: Performed By: #### L 100.0100, L500.2500 ####[facility] [address] [place], [address] RBC (Bld) [#/Vol] 2.95 10*6/uL Low 4.6-6.2 [facility] Comment on above: Performed By: #### L 100.0100, L500.2500 ####[facility] [address] [place], [address] RDW SD 52.7 fl High 35.1-43.9 [facility] Comment on above: Performed By: #### L 100.0100, L500.2500 ####[facility] [address] [place], [address] WBC (Bld) [#/Vol] 10.3 10*3/uL Normal 4.4-11.0 [facility] Comment on above: Performed By: #### L 100.0100, L500.2500 ####[facility] [address] [place], [address] Femur Min 2 Viewson 01-27-20 25 Femur Min 2 Views Normal [facility] MR/POSTOP.ANEon 01-26-2025 MR/POSTOP.ANE Normal [facility] MR/[id number] 01-26-2025 MR/POSTOPAN2 Normal [facility] Operative Reporton Operative Report Normal [facility] 12 Lead EKGon 01-25-2025 12 Lead EKG Normal [facility] Absolute lymphocyte countOrd ered By: Beau Dunlap on 01-25-2025 Lymphocytes Auto (Unsp spec) [#/Vol] 1.22 10*3/uL 0.83-4.51 [facility] Anion gap in Serum or Plasma Ordered By: Beau Dunlap on 01-25-2025 Anion gap [Moles/Vol] 13 mmol/L 5-15 [facility] Automated lymphocyte count a s percentage of total leukocytesOrdered By: Beau Dunlap on 01-25-2025 Lymphocytes/100 WBC Auto (Unsp spec) 18.0 % Low 19-41 [facility] BRCon 01-25-2025 RC Normal [facility] Comment on above: Result Comment: [id number] AP RC TRANSFUSED 01/28/25 [id number] AP RC TRANSFUSED 01/28/25 1120 Performed By: #### B RC ####[facility] [address] [place], [address] BUN/creatinine ratioOrdered By: Beau Dunlap on 01-25-2025 Urea nitrogen/Creatinine [Mass ratio] 9.3 mg/mg Low 10-20 [facility] Basic Metabolic Profile (BMP )on 01-25-2025 BUN/CRE 9.3 RATIO Low 10-20 [facility] Comment on above: Performed By: #### L 100.0100, L500.2500 ####[facility] [address] [place], [address] Calcium [Mass/Vol] 8.9 mg/dL Normal 7.6-11.0 [facility] Comment on above: Performed By: #### L 100.0100, L500.2500 ####[facility] [address] [place], [address] Chloride [Moles/Vol] 97 mmol/L Low 98-108 [facility] Comment on above: Performed By: #### L 100.0100, L500.2500 ####[facility] [address] [place], [address] CO2 [Moles/Vol] 27.0 mmol/L Normal 21.0-32.0 [facility] Comment on above: Performed By: #### L 100.0100, L500.2500 ####[facility] [address] [place], [address] Creatinine [Mass/Vol] 5.11 mg/dL High 0.70-1.20 [facility] Comment on above: Performed By: #### L 100.0100, L500.2500 ####[facility] [address] [place], [address] ECRCL 12.02 ml/min Low 50-250 [facility] Comment on above: Performed By: #### L 100.0100, L500.2500 ####[facility] [address] [place], [address] GAP 13 Normal 5-15 [facility] Comment on above: Performed By: #### L 100.0100, L500.2500 ####[facility] [address] [place], [address] GFR/1.73 sq M.predicted among non-blacks MDRD (S/P/Bld) [Vol rate/Area] 10 mL/min/{1.73_m2} Low >60 [facility] Comment on above: Result Comment: mL/m in/1.73m2 CKD-EPI Creatinine Equation (2020) Performed By: #### L 100.0100, L500.2500 ####[facility] [address] [place], [address] Glucose [Mass/Vol] 213 mg/dL High 70-99 [facility] Comment on above: Performed By: #### L 100.0100, L500.2500 ####[facility] [address] [place], [address] Potassium [Moles/Vol] 4.4 mmol/L Normal 3.3-5.1 [facility] Comment on above: Performed By: #### L 100.0100, L500.2500 ####[facility] [address] [place], [address] Sodium [Moles/Vol] 136 mmol/L Normal 133-145 [facility] Comment on above: Performed By: #### L 100.0100, L500.2500 ####[facility] [address] [place], [address] Urea nitrogen [Mass/Vol] 47 mg/dL High 4-19 [facility] Comment on above: Performed By: #### L 100.0100, L500.2500 ####[facility] [address] [place], [address] Basophil percentageOrdered B y: Beua Dunlap on 01-25-2025 Basophils/100 WBC (Bld) 0.7 % 0-1 [facility] Bedside Glucoseon 01-25-2025 FINGERSTICK GLU 179 mg/dL High 74-106 [facility] Comment on above: Result Comment: FANG VAZQUEZ OF PATIENT CARE PER NURSING PROTOCOL Performed By: #### L 501.080 ####[facility] [address] [place], [address] CBC W/Diff, Automatedon Absolute Lymph 1.22 X10 3/uL Normal 0.83-4.51 [facility] Comment on above: Performed By: #### L 100.0100, L500.2500 ####[facility] [address] [place], [address] Absolute Neut 4.7 X10 3/uL Normal 2.0-7.7 [facility] Comment on above: Performed By: #### L 100.0100, L500.2500 ####[facility] [address] [place], [address] Basophils/100 WBC (Bld) 0.7 % Normal 0-1 [facility] Comment on above: Performed By: #### L 100.0100, L500.2500 ####[facility] [address] [place], [address] Eosinophils/100 WBC (Bld) 2.4 % Normal 0-5 [facility] Comment on above: Performed By: #### L 100.0100, L500.2500 ####[facility] [address] [place], [address] Erythrocyte distribution width (RBC) [Ratio] 15.5 % High 11.6-14.6 [facility] Comment on above: Performed By: #### L 100.0100, L500.2500 ####[facility] [address] [place], [address] Hematocrit (Bld) [Volume fraction] 29.9 % Low 40-54 [facility] Comment on above: Performed By: #### L 100.0100, L500.2500 ####[facility] [address] [place], [address] Hemoglobin (Bld) [Mass/Vol] 9.9 g/dL Low 13.0-16.5 [facility] Comment on above: Performed By: #### L 100.0100, L500.2500 ####[facility] [address] [place], [address] IG% 0.400 Normal 0.0-0.9 [facility] Comment on above: Result Comment: IG% - Immature Granulocytes (promyelocytes, myelocytes andmetamyelocytes) > 1% indicates that a LEFT SHIFT is Present. Performed By: #### L 100.0100, L500.2500 ####[facility] [address] [place], [address] Lymphocytes/100 WBC (Bld) 18.0 % Low 19-41 [facility] Comment on above: Performed By: #### L 100.0100, L500.2500 ####[facility] [address] [place], [address] MCH (RBC) [Entitic mass] 31.3 pg Normal 27.0-32.0 [facility] Comment on above: Performed By: #### L 100.0100, L500.2500 ####[facility] [address] [place], [address] MCHC (RBC) [Mass/Vol] 33.1 g/dL Normal 32-36 [facility] Comment on above: Performed By: #### L 100.0100, L500.2500 ####[facility] [address] [place], [address] MCV (RBC) [Entitic vol] 94.6 fL High 80-94 [facility] Comment on above: Performed By: #### L 100.0100, L500.2500 ####[facility] [address] [place], [address] Monocytes/100 WBC (Bld) 9.6 % Normal 0-10 [facility] Comment on above: Performed By: #### L 100.0100, L500.2500 ####[facility] [address] [place], [address] Neutrophils/100 WBC (Bld) 68.9 % Normal 47-70 [facility] Comment on above: Performed By: #### L 100.0100, L500.2500 ####[facility] [address] [place], [address] Nucleated RBC (Bld) [#/Vol] 0 10*3/uL Normal 0-5 [facility] Comment on above: Performed By: #### L 100.0100, L500.2500 ####[facility] [address] [place], [address] Platelet mean volume (Bld) [Entitic vol] 10.6 fL Normal 6.2-12.0 [facility] Comment on above: Performed By: #### L 100.0100, L500.2500 ####[facility] [address] [place], [address] Platelets (Bld) [#/Vol] 164 10*3/uL Normal 150-450 [facility] Comment on above: Performed By: #### L 100.0100, L500.2500 ####[facility] [address] [place], [address] RBC (Bld) [#/Vol] 3.16 10*6/uL Low 4.6-6.2 [facility] Comment on above: Performed By: #### L 100.0100, L500.2500 ####[facility] [address] [place], [address] RDW SD 54.0 fl High 35.1-43.9 [facility] Comment on above: Performed By: #### L 100.0100, L500.2500 ####[facility] [address] [place], [address] WBC (Bld) [#/Vol] 6.8 10*3/uL Normal 4.4-11.0 [facility] Comment on above: Performed By: #### L 100.0100, L500.2500 ####[facility] [address] [place], [address] Carbon dioxide, total [Moles /volume] in Central venous bloodOrdered By: Beau Dunlap on 01-25-2025 CO2 [Moles/Vol] 27.0 mmol/L 21.0-32.0 [facility] Chest 1 Viewon 01-25-2025 Chest 1 View Normal [facility] Chloride assayOrdered By: Xavier Dunlap on 01-25-2025 Chloride [Moles/Vol] 97 mmol/L Low 98-108 [facility] Consultation - Orthopedicson 01-25-2025 Consultation - Orthopedics Normal [facility] Consultation - Orthopedics Normal [facility] Emergency Department Summary on 01-25-2025 Emergency Department Summary Normal [facility] Eosinophil percentageOrdered By: Beau Dunlap on 01-25-2025 Eosinophils/100 WBC (Bld) 2.4 % 0-5 [facility] Erythrocyte distribution wid th ratioOrdered By: Beau Dunalp on 01-25-2025 Erythrocyte distribution width (RBC) [Ratio] 15.5 % High 11.6-14.6 [facility] Erythrocyte distribution wid th standard deviationOrdered By: Beau Dunlap on 01-25-2025 Erythrocyte distribution width (RBC) [Ratio] 54.0 fl High 35.1-43.9 [facility] Glomerular filtration rate ( GFR) estimation/1.73 sq m using serum, plasma, or whole bOrdered By: Beau Dunlap on 01-25-2025 GFR/1.73 sq M.predicted among non-blacks MDRD (S/P/Bld) [Vol rate/Area] 10 mL/min/{1.73_m2} Low >60 [facility] H AND P Exam - Hospitaliston 01-25-2025 H&P Exam - Hospitalist Normal [facility] HIP, UNI W/ Pelvis 2-3 Views on 01-25-2025 HIP, UNI W/ Pelvis 2-3 Views Normal [facility] Hematocrit Auto (Bld) [Volum e fraction]Ordered By: Beau Dunlap on 01-25-2025 Hematocrit (Bld) [Volume fraction] 29.9 % Low 40-54 [facility] Hemoglobin measurementOrdere d By: Beau Dunlap on 01-25-2025 Hemoglobin (Bld) [Mass/Vol] 9.9 g/dL Low 13.0-16.5 [facility] Immature granulocytes/100 WB C Auto (Bld)Ordered By: Beau Dunlap on 01-25-2025 Immature granulocytes/100 WBC (Bld) 0.400 % 0.0-0.9 [facility] Knee 1 or 2 Viewson 01-26-20 Knee 1 or 2 Views Normal [facility] MCV (mean corpuscular volume ) determinationOrdered By: Beau Dunlap on 01-25-2025 MCV (RBC) [Entitic vol] 94.6 fL High 80-94 [facility] Mean corpuscular hemoglobin (MCH) determinationOrdered By: Beau Dunlap on 01-25-2025 MCH (RBC) [Entitic mass] 31.3 pg 27.0-32.0 [facility] Monocyte percentageOrdered B y: Beau Dunlap on 01-25-2025 Monocytes/100 WBC (Bld) 9.6 % 0-10 [facility] Neutrophil percentageOrdered By: Beau Dunlap on 01-25-2025 Neutrophils/100 WBC (Bld) 68.9 % 47-70 [facility] Platelet countOrdered By: Xavier Dunlap on 01-25-2025 Platelets (Bld) [#/Vol] 164 10*3/uL 150-450 [facility] Potassium measurement (mass/ volume)Ordered By: Beau Dunlap on 01-25-2025 Potassium (Unsp spec) [Mass/Vol] 4.4 mmol/L 3.3-5.1 [facility] RBC Auto (Bld) [#/Vol]Ordere d By: Beau Dunlap on 01-25-2025 RBC (Bld) [#/Vol] 3.16 10*6/uL Low 4.6-6.2 [facility] Serum creatinine measurement (mass/volume)Ordered By: Beau Dunlap on 01-25-2025 Creatinine [Mass/Vol] 5.11 mg/dL High 0.70-1.20 [facility] Serum glucose measurement (m ass/volume)Ordered By: Beau Dunlap on 01-25-2025 Glucose [Mass/Vol] 213 mg/dL High 70-99 [facility] Serum or plasma calcium lilli urement (mass/volume)Ordered By: Beau Dunlap on 01-25-2025 Calcium [Mass/Vol] 8.9 mg/dL 7.6-11.0 [facility] Serum or plasma urea nitroge n measurement (mass/volume)Ordered By: Beau Dunlap on 01-25-2025 Urea nitrogen [Mass/Vol] 47 mg/dL High 4-19 [facility] Sodium levelOrdered By: Beau Dunlap on 01-25-2025 Sodium [Moles/Vol] 136 mmol/L 133-145 [facility] Type AND Screenon 01-25-2025 ABO and Rh group Nom (Bld) Blood group A Rh(D) positive Normal [facility] Comment on above: Order Comment: S Performed By: #### B TS ####[facility] [address] [place], [place], [id number] White blood cell (WBC) count Ordered By: Beau Dunlap on 01-25-2025 WBC (Bld) [#/Vol] 6.8 10*3/uL 4.4-11.0 [facility] Absolute lymphocyte countOrd ered By: Nando Wiggins on 01-23-2025 Lymphocytes Auto (Unsp spec) [#/Vol] 1.42 10*3/uL 0.83-4.51 [facility] Anion gap in Serum or Plasma Ordered By: Nando Wiggins on 01-23-2025 Anion gap [Moles/Vol] 14 mmol/L 5-15 [facility] Automated lymphocyte count a s percentage of total leukocytesOrdered By: Nando Wiggins on 01-23-2025 Lymphocytes/100 WBC Auto (Unsp spec) 19.1 % 19-41 [facility] BUN/creatinine ratioOrdered By: Nando Wiggins on 01-23-2025 Urea nitrogen/Creatinine [Mass ratio] 9.7 mg/mg Low 10-20 [facility] Basophil percentageOrdered B y: Nando Wiggins on 01-23-2025 Basophils/100 WBC (Bld) 0.8 % 0-1 [facility] Carbon dioxide, total [Moles /volume] in Central venous bloodOrdered By: Nando Wiggins on 01-23-2025 CO2 [Moles/Vol] 27.0 mmol/L 21.0-32.0 [facility] Chloride assayOrdered By: Kathie Wiggins on 01-23-2025 Chloride [Moles/Vol] 92 mmol/L Low 98-108 [facility] Eosinophil percentageOrdered By: Nando Wiggins on 01-23-2025 Eosinophils/100 WBC (Bld) 2.7 % 0-5 [facility] Erythrocyte distribution wid th ratioOrdered By: Nando Wiggins on 01-23-2025 Erythrocyte distribution width (RBC) [Ratio] 15.7 % High 11.6-14.6 [facility] Erythrocyte distribution wid th standard deviationOrdered By: Nando Wiggins on 01-23-2025 Erythrocyte distribution width (RBC) [Ratio] 54.7 fl High 35.1-43.9 [facility] Glomerular filtration rate ( GFR) estimation/1.73 sq m using serum, plasma, or whole bOrdered By: Nando Wiggins on 01-23-2025 GFR/1.73 sq M.predicted among non-blacks MDRD (S/P/Bld) [Vol rate/Area] 12 mL/min/{1.73_m2} Low >60 [facility] Hematocrit Auto (Bld) [Volum e fraction]Ordered By: Nando Wiggins on 01-23-2025 Hematocrit (Bld) [Volume fraction] 31.3 % Low 40-54 [facility] Hemoglobin measurementOrdere d By: Nando Wiggins on 01-23-2025 Hemoglobin (Bld) [Mass/Vol] 10.0 g/dL Low 13.0-16.5 [facility] Immature granulocytes/100 WB C Auto (Bld)Ordered By: Nando Wiggins on 01-23-2025 Immature granulocytes/100 WBC (Bld) 0.500 % 0.0-0.9 [facility] MCV (mean corpuscular volume ) determinationOrdered By: Nando Wiggins on 01-23-2025 MCV (RBC) [Entitic vol] 95.7 fL High 80-94 [facility] Mean corpuscular hemoglobin (MCH) determinationOrdered By: Nando Wiggins on 01-23-2025 MCH (RBC) [Entitic mass] 30.6 pg 27.0-32.0 [facility] Monocyte percentageOrdered B y: Nando Wiggins on 01-23-2025 Monocytes/100 WBC (Bld) 9.3 % 0-10 [facility] Neutrophil percentageOrdered By: Nando Wiggins on 01-23-2025 Neutrophils/100 WBC (Bld) 67.6 % 47-70 [facility] Platelet countOrdered By: Kathie Wiggins on 01-23-2025 Platelets (Bld) [#/Vol] 173 10*3/uL 150-450 [facility] Potassium measurement (mass/ volume)Ordered By: Debsrinathwolf Wiggins on 01-23-2025 Potassium (Unsp spec) [Mass/Vol] 4.1 mmol/L 3.3-5.1 [facility] RBC Auto (Bld) [#/Vol]Ordere d By: Debsrinathwolf Wiggins on 01-23-2025 RBC (Bld) [#/Vol] 3.27 10*6/uL Low 4.6-6.2 [facility] Serum creatinine measurement (mass/volume)Ordered By: Nando Wiggins on 01-23-2025 Creatinine [Mass/Vol] 4.39 mg/dL High 0.70-1.20 [facility] Serum glucose measurement (m ass/volume)Ordered By: Nando Wiggins on 01-23-2025 Glucose [Mass/Vol] 201 mg/dL High 70-99 [facility] Serum or plasma calcium lilli urement (mass/volume)Ordered By: Nando Wiggins on 01-23-2025 Calcium [Mass/Vol] 8.7 mg/dL 7.6-11.0 [facility] Serum or plasma urea nitroge n measurement (mass/volume)Ordered By: Nando Wiggins on 01-23-2025 Urea nitrogen [Mass/Vol] 43 mg/dL High 4-19 [facility] Sodium levelOrdered By: Deb rosejeremie Rosalie on 01-23-2025 Sodium [Moles/Vol] 133 mmol/L 133-145 [facility] White blood cell (WBC) count Ordered By: Nando Wiggins on 01-23-2025 WBC (Bld) [#/Vol] 7.4 10*3/uL 4.4-11.0 [facility] Pacemaker Checkon 12-26-2024 Pacemaker Check Normal [facility] Absolute lymphocyte countOrd ered By: Nando Wiggins on 12-24-2024 Lymphocytes Auto (Unsp spec) [#/Vol] 1.65 10*3/uL 0.83-4.51 [facility] Anion gap in Serum or Plasma Ordered By: Nando Wiggins on 12-24-2024 Anion gap [Moles/Vol] 16 mmol/L High 5-15 [facility] Automated lymphocyte count a s percentage of total leukocytesOrdered By: Nando Wiggins on 12-24-2024 Lymphocytes/100 WBC Auto (Unsp spec) 19.2 % 19-41 [facility] BUN/creatinine ratioOrdered By: Nando Wiggins on 12-24-2024 Urea nitrogen/Creatinine [Mass ratio] 9.7 mg/mg Low 10-20 [facility] Basophil percentageOrdered B y: Nando Wiggins on 12-24-2024 Basophils/100 WBC (Bld) 0.7 % 0-1 [facility] Carbon dioxide, total [Moles /volume] in Central venous bloodOrdered By: Nando Wiggins on 12-24-2024 CO2 [Moles/Vol] 25.2 mmol/L 21.0-32.0 [facility] Chloride assayOrdered By: Kathie Wiggins on 12-24-2024 Chloride [Moles/Vol] 93 mmol/L Low 98-108 [facility] Eosinophil percentageOrdered By: Nando Wiggins on 12-24-2024 Eosinophils/100 WBC (Bld) 2.8 % 0-5 [facility] Erythrocyte distribution wid th ratioOrdered By: Nando Wiggins on 12-24-2024 Erythrocyte distribution width (RBC) [Ratio] 15.2 % High 11.6-14.6 [facility] Erythrocyte distribution wid th standard deviationOrdered By: Nando Wiggins on 12-24-2024 Erythrocyte distribution width (RBC) [Ratio] 50.7 fl High 35.1-43.9 [facility] Glomerular filtration rate ( GFR) estimation/1.73 sq m using serum, plasma, or whole bOrdered By: Nando Wiggins on 12-24-2024 GFR/1.73 sq M.predicted among non-blacks MDRD (S/P/Bld) [Vol rate/Area] 10 mL/min/{1.73_m2} Low >60 [facility] Hematocrit Auto (Bld) [Volum e fraction]Ordered By: Nando Wiggins on 12-24-2024 Hematocrit (Bld) [Volume fraction] 31.5 % Low 40-54 [facility] Hemoglobin measurementOrdere d By: Nando Wiggins on 12-24-2024 Hemoglobin (Bld) [Mass/Vol] 10.0 g/dL Low 13.0-16.5 [facility] Immature granulocytes/100 WB C Auto (Bld)Ordered By: Nando Wiggins on 12-24-2024 Immature granulocytes/100 WBC (Bld) 0.600 % 0.0-0.9 [facility] MCV (mean corpuscular volume ) determinationOrdered By: Nando Wiggins on 12-24-2024 MCV (RBC) [Entitic vol] 91.3 fL 80-94 [facility] Mean corpuscular hemoglobin (MCH) determinationOrdered By: Nando Wiggins on 12-24-2024 MCH (RBC) [Entitic mass] 29.0 pg 27.0-32.0 [facility] Monocyte percentageOrdered B y: Nando Wiggins on 12-24-2024 Monocytes/100 WBC (Bld) 11.3 % High 0-10 [facility] Neutrophil percentageOrdered By: Nando Wiggins on 12-24-2024 Neutrophils/100 WBC (Bld) 65.4 % 47-70 [facility] Platelet countOrdered By: Kathie Wiggins on 12-24-2024 Platelets (Bld) [#/Vol] 180 10*3/uL 150-450 [facility] Potassium measurement (mass/ volume)Ordered By: Nando Wiggins on 12-24-2024 Potassium (Unsp spec) [Mass/Vol] 4.6 mmol/L 3.3-5.1 [facility] RBC Auto (Bld) [#/Vol]Ordere d By: Nando Wiggins on 12-24-2024 RBC (Bld) [#/Vol] 3.45 10*6/uL Low 4.6-6.2 [facility] Serum creatinine measurement (mass/volume)Ordered By: Nando Wiggins on 12-24-2024 Creatinine [Mass/Vol] 5.37 mg/dL High 0.70-1.20 [facility] Serum glucose measurement (m ass/volume)Ordered By: Nando Wiggins on 12-24-2024 Glucose [Mass/Vol] 131 mg/dL High 70-99 [facility] Serum or plasma calcium lilli urement (mass/volume)Ordered By: Nando Wiggins on 12-24-2024 Calcium [Mass/Vol] 9.1 mg/dL 7.6-11.0 [facility] Serum or plasma urea nitroge n measurement (mass/volume)Ordered By: Nando Wiggins on 12-24-2024 Urea nitrogen [Mass/Vol] 52 mg/dL High 4-19 [facility] Sodium levelOrdered By: Deb Wiggins on 12-24-2024 Sodium [Moles/Vol] 134 mmol/L 133-145 [facility] White blood cell (WBC) count Ordered By: Nando Wiggins on 12-24-2024 WBC (Bld) [#/Vol] 8.6 10*3/uL 4.4-11.0 [facility] Bilirubin directOrdered By: Nando Wiggins on 12-19-2024 Bilirubin.direct [Mass/Vol] 0.12 mg/dL 0.00-0.30 [facility] Bilirubin, totalOrdered By: Nando Wiggins on 12-19-2024 Bilirubin [Mass/Vol] 0.28 mg/dL 0.00-1.30 [facility] Hemoglobin A1c percentageOrd ered By: Nando Wiggins on 12-19-2024 HbA1c (Bld) [Mass fraction] 7.6 % High <5.7 [facility] No Panel InformationOrdered By: Nando Wiggins on 12-19-2024 16 U/L <38 [facility] Serum globulin measurementOr dered By: Nando Wiggins on 12-19-2024 Globulin (S) [Mass/Vol] 3.0 g/dL 2.2-4.2 [facility] Serum or plasma alanine hawkins otransferase (ALT) measurementOrdered By: Nando Wiggins on 12-19-2024 ALT [Catalytic activity/Vol] 30 U/L <47 [facility] Serum or plasma albumin lilli urement (mass/volume)Ordered By: Nando Wiggins on 12-19-2024 Albumin [Mass/Vol] 3.6 g/dL 3.4-4.8 [facility] Serum or plasma alkaline penelope sphatase measurementOrdered By: Nando Wiggins on 12-19-2024 ALP [Catalytic activity/Vol] 69 U/L 40-129 [facility] Total proteinOrdered By: Sinan Wiggins on 12-19-2024 Protein [Mass/Vol] 6.6 g/dL 5.9-8.4 [facility] Vitamin B12 ser/plasOrdered By: Nando Wiggins on 12-19-2024 Cobalamin (Vitamin B12) [Mass/Vol] 777 pg/mL 180-914 [facility] Bilirubin directOrdered By: Nando Wiggins on 12-12-2024 Bilirubin.direct [Mass/Vol] 0.13 mg/dL 0.00-0.30 [facility] Bilirubin, totalOrdered By: Nando Wiggins on 12-12-2024 Bilirubin [Mass/Vol] 0.27 mg/dL 0.00-1.30 [facility] Hemoglobin A1c percentageOrd ered By: Nando Wiggins on 12-12-2024 HbA1c (Bld) [Mass fraction] 7.3 % High <5.7 [facility] No Panel InformationOrdered By: Nando Wiggins on 12-12-2024 33 U/L <38 [facility] Serum globulin measurementOr dered By: Nando Wiggins on 12-12-2024 Globulin (S) [Mass/Vol] 3.2 g/dL 2.2-4.2 [facility] Serum or plasma alanine hawkins otransferase (ALT) measurementOrdered By: Nando Wiggins on 12-12-2024 ALT [Catalytic activity/Vol] 49 U/L High <47 [facility] Serum or plasma albumin lilli urement (mass/volume)Ordered By: Nando Wiggins on 12-12-2024 Albumin [Mass/Vol] 3.6 g/dL 3.4-4.8 [facility] Serum or plasma alkaline penelope sphatase measurementOrdered By: Nando Wiggins on 12-12-2024 ALP [Catalytic activity/Vol] 71 U/L 40-129 [facility] Total proteinOrdered By: Sinandesiree schmidt Rosalie on 12-12-2024 Protein [Mass/Vol] 6.8 g/dL 5.9-8.4 [facility] Vitamin B12 ser/plasOrdered By: Nando Wiggins on 12-12-2024 Cobalamin (Vitamin B12) [Mass/Vol] 719 pg/mL 180-914 [facility] CNPNon 12-11-2024 CNPN Normal [facility] Basic metabolic 2000 panelon 11-28-2024 Anion gap [Moles/Vol] 10 mmol/L Normal 8-15 [facility] Comment on above: Order Comment: Speci men Type: BLOOD SPECIMENOrdering Facility: [facility] Address: [address] [place] [address] Performed By: #### 2 4321-2, ####[facility] LABIA [id number] [place] [address] [place] Calcium [Mass/Vol] 8.8 mg/dL Normal 8.5-10.2 [facility] Comment on above: Order Comment: Speci men Type: BLOOD SPECIMENOrdering Facility: [facility] Address: [address] [id number] Performed By: #### 2 4321-2, ####[facility] LABCLIA [id number] [place] [id number] [place] Chloride [Moles/Vol] 96 mmol/L Low 98-107 [facility] Comment on above: Order Comment: Speci men Type: BLOOD SPECIMENOrdering Facility: [facility] Address: [address] [place] [address] Performed By: #### 2 4321-2, ####[facility] LABIA [id number] [address] [address] [place] CO2 [Moles/Vol] 26 mmol/L Normal 22-30 [facility] Comment on above: Order Comment: Speci men Type: BLOOD SPECIMENOrdering Facility: [facility] Address: [address] [place] [address] Performed By: #### 2 432-2, ####[facility] LABIA [id number] [address] [address] [place] Creatinine [Mass/Vol] 2.74 mg/dL High 0.73-1.22 [facility] Comment on above: Order Comment: Speci men Type: BLOOD SPECIMENOrdering Facility: [facility] Address: [address] [place] [address] Performed By: #### 2 43205-24, ####[facility] LABIA [id number] [address] [address] [place] Creatinine and Glomerular filtration rate.predicted panel (S/P/Bld) 22 mL/min/1.73m??? Low >=60 [facility] Comment on above: Order Comment: Speci men Type: BLOOD SPECIMENOrdering Facility: [facility] Address: [address] [place] [address] Result Comment: Tessa mated Glomerular Filtration Rate [...] actual GFR. Performed By: #### 2 4321-2, ####[facility] LABIA [id number] [address] [address] [place] Glucose [Mass/Vol] 153 mg/dL High 74-99 [facility] Comment on above: Order Comment: Speci men Type: BLOOD SPECIMENOrdering Facility: [facility] Address: [address] [place] [address] Result Comment: The [place] [employer] (ADA) provides guidance for cutoff [...] Standards of Medical Care in Diabetes 2016, [place] [employer]. Diabetes Care. 2016.39(Suppl 1). Performed By: #### 2 4320-06, ####[facility] LABCLIA [id number] [place] [address] [place] Potassium [Moles/Vol] 4.4 mmol/L Normal 3.7-5.1 [facility] Comment on above: Order Comment: Ruddyi men Type: BLOOD SPECIMENOrdering Facility: [facility] Address: [address] [place] [address] Performed By: #### 2 4320-06, ####[facility] LABCLIA [id number] [place] [address] [place] Sodium [Moles/Vol] 132 mmol/L Low 136-144 [facility] Comment on above: Order Comment: Speci men Type: BLOOD SPECIMENOrdering Facility: [facility] Address: [address] [place] [address] Performed By: #### 2 4320-06, ####[facility] LABCLIA [id number] [place] [address] [place] Urea nitrogen [Mass/Vol] 22 mg/dL Normal 9-24 [facility] Comment on above: Order Comment: Speci men Type: BLOOD SPECIMENOrdering Facility: [facility] Address: [address] [place] [address] Performed By: #### 2 4321-2, 26058-0 ####[facility] LABCLIA [id number] [facility] [address] [place] [address] [place] CASE MANAGEMon 11-28-2024 CASE MANAGEM Normal [facility] CBC panel Auto (Bld)on 11-28 Erythrocyte distribution width (RBC) [Ratio] 15.9 % High 11.5-15.0 [facility] Comment on above: Order Comment: Speci men Type: BLOOD SPECIMENOrdering Facility: [facility] Address: [address] [place] [address] Performed By: #### 5 8410-2 ####[facility] LABCLIA [id number] [address], [facility] [place] Hematocrit (Bld) [Volume fraction] 33.2 % Low 39.0-51.0 [facility] Comment on above: Order Comment: Speci men Type: BLOOD SPECIMENOrdering Facility: [facility] Address: [address] [place] [address] Performed By: #### 5 8410-2 ####[facility] LABCLIA [id number] [facility] [address] [place] [address] [place] Hemoglobin (Bld) [Mass/Vol] 10.4 g/dL Low 13.0-17.0 [facility] Comment on above: Order Comment: Speci men Type: BLOOD SPECIMENOrdering Facility: [facility] Address: [address] [place] [address] Performed By: #### 5 8410-2 ####[facility] LABCLIA [id number] [facility] [address] [place] [address] [place] MCH (RBC) [Entitic mass] 28.3 pg Normal 26.0-34.0 [facility] Comment on above: Order Comment: Speci men Type: BLOOD SPECIMENOrdering Facility: [facility] Address: [address] [place] [address] Performed By: #### 5 8410-2 ####[facility] LABIA [id number] [place] [address] [place] MCHC (RBC) [Mass/Vol] 31.3 g/dL Normal 30.5-36.0 [facility] Comment on above: Order Comment: Speci men Type: BLOOD SPECIMENOrdering Facility: [facility] Address: [address] [place] [address] Performed By: #### 5 8410-2 ####[facility] LABIA [id number] [place] [address] [place] MCV (RBC) [Entitic vol] 90.2 fL Normal 80.0-100.0 [facility] Comment on above: Order Comment: Speci men Type: BLOOD SPECIMENOrdering Facility: [facility] Address: [address] [place] [address] Performed By: #### 5 8410-2 ####[facility] LABIA [id number] [place] [address] [place] Nucleated RBC (Bld) [#/Vol] 10*3/uL Normal <0.01 [facility] Comment on above: Order Comment: Speci men Type: BLOOD SPECIMENOrdering Facility: [facility] Address: [address] [place] [address] Performed By: #### 5 8410-2 ####[facility] LABIA [id number] [place] [address] [place] Platelet mean volume (Bld) [Entitic vol] 12.8 fL High 9.0-12.7 [facility] Comment on above: Order Comment: Speci men Type: BLOOD SPECIMENOrdering Facility: [facility] Address: [address] [place] [address] Performed By: #### 5 8410-2 ####[facility] LABCLIA [id number] [place] [address] [place] Platelets (Bld) [#/Vol] 126 10*3/uL Low 150-400 [facility] Comment on above: Order Comment: Speci men Type: BLOOD SPECIMENOrdering Facility: [facility] Address: [address] [place] [address] Performed By: #### 5 8410-2 ####[facility] LABIA [id number] [place] [address] [place] RBC (Bld) [#/Vol] 3.68 10*6/uL Low 4.20-6.00 [facility] Comment on above: Order Comment: Speci men Type: BLOOD SPECIMENOrdering Facility: [facility] Address: [address] [place] [address] Performed By: #### 5 8410-2 ####[facility] LABIA [id number] [place] [address] [place] WBC (Bld) [#/Vol] 7.99 10*3/uL Normal 3.70-11.00 [facility] Comment on above: Order Comment: Speci men Type: BLOOD SPECIMENOrdering Facility: [facility] Address: [address] [place] [address] Performed By: #### 5 8410-2 ####[facility] LABIA [id number] [place] [id number] [place] CNDSon 11-28-2024 CNDS Normal [facility] CONSULT PROGon 11-28-2024 CONSULT PROG Normal [facility] Magnesium SerPl-mCncon 11-28 Magnesium [Mass/Vol] 2.1 mg/dL Normal 1.7-2.3 [facility] Comment on above: Order Comment: Speci men Type: BLOOD SPECIMENOrdering Facility: [facility] Address: [address] [place] [address] Performed By: #### 2 4321-2, 25368-1 ####[facility] LABIA [id number] [place] [address] [place] THERAPY NTon 11-28-2024 THERAPY NT Normal [facility] XR CHEST 1V FRONTAL PORTon 0 11-28-2024 XR CHEST 1V FRONTAL PORT Normal [facility] ALLIED HEALTHon 11-27-2024 ALLIED HEALTH Normal [facility] ARTERIAL BLOOD GASESon 11-27 Base excess Calc (Bld) [Moles/Vol] 4 mmol/L High 0-2 [facility] Comment on above: Order Comment: Speci men Type: ARTERIAL BLOOD SPECIMENOrdering Facility: [facility] Address: [address] [place] [address] Performed By: #### A LLBG ####[facility] LABCLIA [id number] [place] [address] [place] Body temperature 97.88 [degF] Normal [facility] Comment on above: Order Comment: Speci men Type: ARTERIAL BLOOD SPECIMENOrdering Facility: [facility] Address: [address] [place] [address] Performed By: #### A LLBG ####[facility] LABIA [id number] [place] [address] [place] Calcium.ionized (Bld) [Mass/Vol] 1.10 mmol/L Normal 1.08-1.30 [facility] Comment on above: Order Comment: Speci men Type: ARTERIAL BLOOD SPECIMENOrdering Facility: [facility] Address: [address] [place] [address] Performed By: #### A LLBG ####[facility] LABCLIA [id number] [place] [address] [place] Calcium.ionized adjusted to pH 7.4 (BldA) [Moles/Vol] 1.10 mmol/L Normal 1.08-1.30 [facility] Comment on above: Order Comment: Speci men Type: ARTERIAL BLOOD SPECIMENOrdering Facility: [facility] Address: [address] [place] [address] Performed By: #### A LLBG ####[facility] LABCLIA [id number] [address] [address] [place] Carboxyhemoglobin (BldA) [Mass fraction] 1.2 % Normal 0.0-2.0 [facility] Comment on above: Order Comment: Speci men Type: ARTERIAL BLOOD SPECIMENOrdering Facility: [facility] Address: [address] [place] [address] Result Comment: Carb oxyhemoglobin Reference Range for Smokers: 2.0-8.0% Performed By: #### A LLBG ####[facility] LABCLIA [id number] [place] [id number] [place] CO2 (Bld) [Partial pressure] 48 mm Hg High 36-46 [facility] Comment on above: Order Comment: Speci men Type: ARTERIAL BLOOD SPECIMENOrdering Facility: [facility] Address: [address] [place] [place] [address] Performed By: #### A LLBG ####[facility] LABCLIA [id number] [place] [address] [place] CO2 adjusted to patient's actual temperature (Bld) [Partial pressure] 47 mmHg High 36-46 [facility] Comment on above: Order Comment: Speci men Type: ARTERIAL BLOOD SPECIMENOrdering Facility: [facility] Address: [address] [place] [address] Performed By: #### A LLBG ####[facility] LABCLIA [id number] [place] [id number] [place] Glucose [Mass/Vol] 164 mg/dL High 60-105 [facility] Comment on above: Order Comment: Speci men Type: ARTERIAL BLOOD SPECIMENOrdering Facility: [facility] Address: [address] [place] [address] Performed By: #### A LLBG ####[facility] LABCLIA [id number] [place] [address] [place] HCO3 (Bld) [Moles/Vol] 29 mmol/L High 22-26 Cl [facility] Comment on above: Order Comment: Speci men Type: ARTERIAL BLOOD SPECIMENOrdering Facility: [facility] Address: [address] [place] [address] Performed By: #### A LLBG ####[facility] LABCLIA [id number] [place] [address] [place] Hematocrit (Bld) [Volume fraction] 32.8 % Low 39.0-51.0 [facility] Comment on above: Order Comment: Speci men Type: ARTERIAL BLOOD SPECIMENOrdering Facility: [facility] Address: [address] [place] [address] Performed By: #### A LLBG ####[facility] LABCLIA [id number] [place] [address] [place] Hemoglobin (Bld) [Mass/Vol] 10.6 g/dL Low 13.0-17.0 [facility] Comment on above: Order Comment: Speci men Type: ARTERIAL BLOOD SPECIMENOrdering Facility: [facility] Address: [address] [place] [address] Performed By: #### A LLBG ####[facility] LABCLIA [id number] [place] [id number] [place] Lactate [Moles/Vol] 1.2 mmol/L Normal 0.5-2.2 [facility] Comment on above: Order Comment: Speci men Type: ARTERIAL BLOOD SPECIMENOrdering Facility: [facility] Address: [address] [place] [address] Performed By: #### A LLBG ####[facility] LABCLIA [id number] [place] [id number] [place] Methemoglobin (Bld) [Mass fraction] 1.5 % Normal 0.0-1.5 [facility] Comment on above: Order Comment: Speci men Type: ARTERIAL BLOOD SPECIMENOrdering Facility: [facility] Address: [address] [id number] Performed By: #### A LLBG ####[facility] LABCLIA [id number] [address] [address] [place] O2 THERAPY RA=Room Air Normal [facility] Comment on above: Order Comment: Speci men Type: ARTERIAL BLOOD SPECIMENOrdering Facility: [facility] Address: [address] [id number] Performed By: #### A LLBG ####[facility] LABCLIA [id number] [address] [address] [place] Oxygen (Bld) [Partial pressure] 114 mm Hg High 85-95 [facility] Comment on above: Order Comment: Speci men Type: ARTERIAL BLOOD SPECIMENOrdering Facility: [facility] Address: [address] [id number] Performed By: #### A LLBG ####[facility] LABCLIA [id number] [address] [address] [place] Oxygen adjusted to patient's actual temperature (Bld) [Partial pressure] 111 mmHg High 85-95 [facility] Comment on above: Order Comment: Speci men Type: ARTERIAL BLOOD SPECIMENOrdering Facility: [facility] Address: [address] [id number] Performed By: #### A LLBG ####[facility] LABCLIA [id number] [address] [address] [place] Oxyhemoglobin (BldA) [Mass fraction] 95 % Normal 95-98 [facility] Comment on above: Order Comment: Speci men Type: ARTERIAL BLOOD SPECIMENOrdering Facility: [facility] Address: [address] [id number] Performed By: #### A LLBG ####[facility] LABCLIA [id number] [place] [address] [place] pH (Bld) 7.40 [pH] Normal 7.35-7.45 [facility] Comment on above: Order Comment: Speci men Type: ARTERIAL BLOOD SPECIMENOrdering Facility: [facility] Address: [address] [place] [address] Performed By: #### A LLBG ####[facility] LABCLIA [id number] [place] [address] [place] pH adjusted to patient's actual temperature (Bld) 7.41 Normal 7.35-7.45 [facility] Comment on above: Order Comment: Speci men Type: ARTERIAL BLOOD SPECIMENOrdering Facility: [facility] Address: [address] [place] [address] Performed By: #### A LLBG ####[facility] LABCLIA [id number] [place] [address] [place] PO2 / FIO2 RATIO 543 mmHg Normal >300 [facility] Comment on above: Order Comment: Speci men Type: ARTERIAL BLOOD SPECIMENOrdering Facility: [facility] Address: [address] [place] [address] Performed By: #### A LLBG ####[facility] LABCLIA [id number] [place] [address] [place] Potassium [Moles/Vol] 4.3 mmol/L Normal 3.5-5.0 [facility] Comment on above: Order Comment: Speci men Type: ARTERIAL BLOOD SPECIMENOrdering Facility: [facility] Address: [address] [place] [address] Performed By: #### A LLBG ####[facility] LABCLIA [id number] [place] [id number] [place] Sodium [Moles/Vol] 132 mmol/L Low 136-144 [facility] Comment on above: Order Comment: Speci men Type: ARTERIAL BLOOD SPECIMENOrdering Facility: [facility] Address: [address] [place] [address] Performed By: #### A LLBG ####[facility] LABCLIA [id number] [place] [address] [place] BUN p dialysis SerPl-mCncon 11-27-2024 Urea nitrogen post dialysis [Mass/Vol] 18 mg/dL Normal 9-24 [facility] Comment on above: Order Comment: Speci men Type: BLOOD SPECIMENOrdering Facility: [facility] Address: [address] [place] [address] Performed By: #### 1 1064-3 ####[facility] LABCLIA [id number] [place] [address] [place] BUN pre [facility] Urea nitrogen pre dialysis [Mass/Vol] 50 mg/dL High 9-24 [facility] Comment on above: Order Comment: Speci men Type: BLOOD SPECIMENOrdering Facility: [facility] Address: [address] [place] [address] Performed By: #### 1 1065-0 ####[facility] LABCLIA [id number] [place] [address] [place] Basic Metabolic Profile (BMP )on 11-27-2024 BUN Normal 4-19 [facility] Comment on above: Result Comment: Canc elled via OM: MD Ordered Performed By: #### L 100.0100, L500.2500 ####[facility] [address] [place], [address] BUN/CRE Normal 10-20 [facility] Comment on above: Result Comment: Canc elled via OM: MD Ordered Performed By: #### L 100.0100, L500.2500 ####[facility] [address] [place], [address] Calcium Normal 7.6-11.0 [facility] Comment on above: Result Comment: Canc elled via OM: MD Ordered Performed By: #### L 100.0100, L500.2500 ####[facility] [address] [place], [address] CL Normal 98-108 [facility] Comment on above: Result Comment: Canc elled via OM: MD Ordered Performed By: #### L 100.0100, L500.2500 ####[facility] [address] [place], [address] CO2 Normal 21.0-32.0 [facility] Comment on above: Result Comment: Canc elled via OM: MD Ordered Performed By: #### L 100.0100, L500.2500 ####[facility] [address] [place], [address] CREAT,SERUM Normal 0.70-1.20 [facility] Comment on above: Result Comment: Canc elled via OM: MD Ordered Performed By: #### L 100.0100, L500.2500 ####[facility] [address] [place], [address] eGFR Normal >60 [facility] Comment on above: Result Comment: Canc elled via OM: MD Ordered Performed By: #### L 100.0100, L500.2500 ####[facility] [address] [place], [address] GAP Normal 5-15 [facility] Comment on above: Result Comment: Canc elled via OM: MD Ordered Performed By: #### L 100.0100, L500.2500 ####[facility] [address] [place], [address] GLU Normal 70-99 [facility] Comment on above: Result Comment: Canc elled via OM: MD Ordered Performed By: #### L 100.0100, L500.2500 ####[facility] [address], [address] Potassium Normal 3.3-5.1 [facility] Comment on above: Result Comment: Canc elled via OM: MD Ordered Performed By: #### L 100.0100, L500.2500 ####[facility] [address] [place], [address] Basic Metabolic Profile (BMP) Normal 133-145 [facility] Comment on above: Result Comment: Canc elled via OM: MD Ordered Performed By: #### L 100.0100, L500.2500 ####[facility] [address], [address] CASE MANAGEMon 11-27-2024 CASE MANAGEM Normal [facility] CBC W/Diff, Automatedon 07-0 Absolute Neut Normal 2.0-7.7 [facility] Comment on above: Result Comment: Canc elled via OM: MD Ordered Performed By: #### L 100.0100, L500.2500 ####[facility] [address] [place], [address] HCT Normal 40-54 [facility] Comment on above: Result Comment: Canc elled via OM: MD Ordered Performed By: #### L 100.0100, L500.2500 ####[facility] [address] [place], [address] HGB Normal 13.0-16.5 [facility] Comment on above: Result Comment: Canc elled via OM: MD Ordered Performed By: #### L 100.0100, L500.2500 ####[facility] [address] [place], [address] MCH Normal 27.0-32.0 [facility] Comment on above: Result Comment: Canc elled via OM: MD Ordered Performed By: #### L 100.0100, L500.2500 ####[facility] [address] [place], [address] MCHC Normal 32-36 [facility] Comment on above: Result Comment: Canc elled via OM: MD Ordered Performed By: #### L 100.0100, L500.2500 ####[facility] [address] [place], [address] MCV Normal 80-94 [facility] Comment on above: Result Comment: Canc elled via OM: MD Ordered Performed By: #### L 100.0100, L500.2500 ####[facility] [address] [place], [address] NEUT% Normal 47-70 [facility] Comment on above: Result Comment: Canc elled via OM: MD Ordered Performed By: #### L 100.0100, L500.2500 ####[facility] [address] [place], [address] PLT Normal 150-450 [facility] Comment on above: Result Comment: Canc elled via OM: MD Ordered Performed By: #### L 100.0100, L500.2500 ####[facility] [address] [place], [address] RBC Normal 4.6-6.2 [facility] Comment on above: Result Comment: Canc elled via OM: MD Ordered Performed By: #### L 100.0100, L500.2500 ####[facility] [address] [place], [address] RDW CV Normal 11.6-14.6 [facility] Comment on above: Result Comment: Canc elled via OM: MD Ordered Performed By: #### L 100.0100, L500.2500 ####[facility] [address] [place], [address] RDW SD Normal 35.1-43.9 [facility] Comment on above: Result Comment: Canc elled via OM: MD Ordered Performed By: #### L 100.0100, L500.2500 ####[facility] [address] [place], [address] WBC Normal 4.4-11.0 [facility] Comment on above: Result Comment: Canc elled via OM: MD Ordered Performed By: #### L 100.0100, L500.2500 ####[facility] [address] [place], [address] CBC panel Auto (Bld)on 11-27 Erythrocyte distribution width (RBC) [Ratio] 15.8 % High 11.5-15.0 [facility] Comment on above: Order Comment: Speci men Type: BLOOD SPECIMENOrdering Facility: [facility] Address: [address] [place] [address] Performed By: #### 5 8410-2 ####[facility] LABCLIA [id number] [place] [address] [place] Hematocrit (Bld) [Volume fraction] 31.4 % Low 39.0-51.0 [facility] Comment on above: Order Comment: Speci men Type: BLOOD SPECIMENOrdering Facility: [facility] Address: [address] [place] [address] Performed By: #### 5 8410-2 ####[facility] LABCLIA [id number] [place] [address] [place] Hemoglobin (Bld) [Mass/Vol] 10.1 g/dL Low 13.0-17.0 [facility] Comment on above: Order Comment: Speci men Type: BLOOD SPECIMENOrdering Facility: [facility] Address: [address] [place] [address] Performed By: #### 5 8410-2 ####[facility] LABCLIA [id number] [address] [address] [place] MCH (RBC) [Entitic mass] 28.4 pg Normal 26.0-34.0 [facility] Comment on above: Order Comment: Speci men Type: BLOOD SPECIMENOrdering Facility: [facility] Address: [address] [place] [address] Performed By: #### 5 8410-2 ####[facility] LABIA [id number] [place] [address] [place] MCHC (RBC) [Mass/Vol] 32.2 g/dL Normal 30.5-36.0 [facility] Comment on above: Order Comment: Speci men Type: BLOOD SPECIMENOrdering Facility: [facility] Address: [address] [place] [address] Performed By: #### 5 8410-2 ####[facility] LABIA [id number] [place] [address] [place] MCV (RBC) [Entitic vol] 88.2 fL Normal 80.0-100.0 [facility] Comment on above: Order Comment: Speci men Type: BLOOD SPECIMENOrdering Facility: [facility] Address: [address] [place] [address] Performed By: #### 5 8410-2 ####[facility] LABIA [id number] [place] [address] [place] Nucleated RBC (Bld) [#/Vol] 10*3/uL Normal <0.01 [facility] Comment on above: Order Comment: Speci men Type: BLOOD SPECIMENOrdering Facility: [facility] Address: [address] [place] [address] Performed By: #### 5 8410-2 ####[facility] LABIA [id number] [place] [address] [place] Platelet mean volume (Bld) [Entitic vol] 12.9 fL High 9.0-12.7 [facility] Comment on above: Order Comment: Speci men Type: BLOOD SPECIMENOrdering Facility: [facility] Address: [address] [place], [place] [address] Performed By: #### 5 8410-2 ####[facility] LABCLIA [id number] [place] [address] [place] Platelets (Bld) [#/Vol] 141 10*3/uL Low 150-400 [facility] Comment on above: Order Comment: Speci men Type: BLOOD SPECIMENOrdering Facility: [facility] Address: [address] [place] [address] Performed By: #### 5 8410-2 ####[facility] LABIA [id number] [place] [address] [place] RBC (Bld) [#/Vol] 3.56 10*6/uL Low 4.20-6.00 [facility] Comment on above: Order Comment: Speci men Type: BLOOD SPECIMENOrdering Facility: [facility] Address: [address] [place] [address] Performed By: #### 5 8410-2 ####[facility] LABIA [id number] [place] [id number] [place] WBC (Bld) [#/Vol] 8.24 10*3/uL Normal 3.70-11.00 [facility] Comment on above: Order Comment: Speci men Type: BLOOD SPECIMENOrdering Facility: [facility] Address: [address] [place] [address] Performed By: #### 5 8410-2 ####[facility] LABIA [id number] [place] [id number] [place] CONSULT PROGon 11-27-2024 CONSULT PROG Normal [facility] CONSULT PROG Normal [facility] Comprehensive metabolic 2000 panelon 11-27-2024 Albumin [Mass/Vol] 3.1 g/dL Low 3.9-4.9 [facility] Comment on above: Order Comment: Speci men Type: BLOOD SPECIMENOrdering Facility: [facility] Address: [address] [place] [id number] Performed By: #### 2 4323-8, 61141-2, 2777-1 ####[facility] LABCLIA [id number] [place] [id number] [place] ALP [Catalytic activity/Vol] 62 U/L Normal 38-113 [facility] Comment on above: Order Comment: Speci men Type: BLOOD SPECIMENOrdering Facility: [facility] Address: [address] [place] [address] Performed By: #### 2 4323-8, 03782-4, 2776- ####[facility] LABIA [id number] [place] [address] [place] ALT [Catalytic activity/Vol] 30 U/L Normal 10-54 [facility] Comment on above: Order Comment: Speci men Type: BLOOD SPECIMENOrdering Facility: [facility] Address: [address] [place] [address] Performed By: #### 2 4323-8, 67990-0, 277- ####[facility] LABIA [id number] [place] [id number] [place] Anion gap [Moles/Vol] 13 mmol/L Normal 8-15 [facility] Comment on above: Order Comment: Speci men Type: BLOOD SPECIMENOrdering Facility: [facility] Address: [address] [place] [address] Performed By: #### 2 4323-8, 16461-8, 277- ####[facility] LABIA [id number] [place] [id number] [place] AST [Catalytic activity/Vol] 23 U/L Normal 14-40 [facility] Comment on above: Order Comment: Speci men Type: BLOOD SPECIMENOrdering Facility: [facility] Address: [address] [place] [address] Result Comment: Resu lts may be falsely increased due to interference from hemolysis. Suggest reorder as clinically indicated. Performed By: #### 2 4323-8, , 2776-05 ####[facility] LABCLIA [id number] [address] [address] [place] Bilirubin [Mass/Vol] 0.2 mg/dL Normal 0.2-1.3 [facility] Comment on above: Order Comment: Speci men Type: BLOOD SPECIMENOrdering Facility: [facility] Address: [address] [place] [address] Performed By: #### 2 4323-8, , 2776-05 ####[facility] LABCLIA [id number] [place] [id number] [place] Calcium [Mass/Vol] 8.6 mg/dL Normal 8.5-10.2 [facility] Comment on above: Order Comment: Speci men Type: BLOOD SPECIMENOrdering Facility: [facility] Address: [address] [place] [address] Performed By: #### 2 4323-8, , 2776-05 ####[facility] LABIA [id number] [place] [id number] [place] Chloride [Moles/Vol] 93 mmol/L Low 98-107 [facility] Comment on above: Order Comment: Speci men Type: BLOOD SPECIMENOrdering Facility: [facility] Address: [address] [place], [place] [address] Performed By: #### 2 4323-8, , 2776-05 ####[facility] LABIA [id number] [address] [address] [place] CO2 [Moles/Vol] 27 mmol/L Normal 22-30 [facility] Comment on above: Order Comment: Speci men Type: BLOOD SPECIMENOrdering Facility: [facility] Address: [address] [place], [place] [address] Performed By: #### 2 4323-8, , 2776-05 ####[facility] LABIA [id number] [address] [address] [place] Creatinine [Mass/Vol] 4.19 mg/dL High 0.73-1.22 [facility] Comment on above: Order Comment: Speclena aleman Type: BLOOD SPECIMENOrdering Facility: [facility] Address: [address] [place] [address] Performed By: #### 2 4323-8, , 2776-05 ####[facility] LABIA [id number] [place] [id number] [place] Creatinine and Glomerular filtration rate.predicted panel (S/P/Bld) 13 mL/min/1.73m??? Low >=60 [facility] Comment on above: Order Comment: Lesvia aleman Type: BLOOD SPECIMENOrdering Facility: [facility] Address: [address] [place] [place] [address] Result Comment: Tessa mated Glomerular Filtration Rate [...] Performed By: #### 2 4323-8, , 2776-05 ####[facility] LABIA [id number] [address] [address] [place] Glucose [Mass/Vol] 174 mg/dL High 74-99 [facility] Comment on above: Order Comment: Ruddyi ash Type: BLOOD SPECIMENOrdering Facility: [facility] Address: [address] [place] [address] Result Comment: The [place] [employer] (ADA) provides guidance for cutoff [...] Standards of Medical Care in Diabetes 2016, [place] [employer]. Diabetes Care. 2016.39(Suppl 1). Performed By: #### 2 4323-8, , 2776-05 ####[facility] LABCLIA [id number] [place] [address] [place] Potassium [Moles/Vol] 4.2 mmol/L Normal 3.7-5.1 [facility] Comment on above: Order Comment: Speci men Type: BLOOD SPECIMENOrdering Facility: [facility] Address: [address] [place] [place] [address] Performed By: #### 2 4323-8, , 2776-05 ####[facility] LABCLIA [id number] [place] [address] [place] Protein [Mass/Vol] 6.0 g/dL Low 6.3-8.0 [facility] Comment on above: Order Comment: Speci men Type: BLOOD SPECIMENOrdering Facility: [facility] Address: [address] [place] [place] [address] Performed By: #### 2 4323-8, , 2776-05 ####[facility] LABCLIA [id number] [address] [address] [place] Sodium [Moles/Vol] 133 mmol/L Low 136-144 [facility] Comment on above: Order Comment: Speci men Type: BLOOD SPECIMENOrdering Facility: [facility] Address: [address] [place] [address] Performed By: #### 2 4323-8, , 2776-05 ####[facility] LABCLIA [id number] [address] [address] [place] Urea nitrogen [Mass/Vol] 43 mg/dL High 9-24 [facility] Comment on above: Order Comment: Speci men Type: BLOOD SPECIMENOrdering Facility: [facility] Address: [address] [place] [address] Performed By: #### 2 4323-8, 45231-2, 2776- ####[facility] LABCLIA [id number] [place] [id number] [place] Magnesium SerPl-mCncon 11-27 Magnesium [Mass/Vol] 2.2 mg/dL Normal 1.7-2.3 [facility] Comment on above: Order Comment: Speci men Type: BLOOD SPECIMENOrdering Facility: [facility] Address: [address] [place] [address] Performed By: #### 2 4323-8, , 2776-05 ####[facility] LABCLIA [id number] [place] [id number] [place] Phosphate SerPl-mCncon 11-27 Phosphate [Mass/Vol] 5.9 mg/dL High 2.7-4.8 [facility] Comment on above: Order Comment: Speci men Type: BLOOD SPECIMENOrdering Facility: [facility] Address: [address] [place] [address] Result Comment: Resu lt rechecked. Performed By: #### 2 4323-8, , 2776-05 ####[facility] LABCLIA [id number] [place] [id number] [place] TYPE + SCREENon 11-27-2024 ABO A Normal [facility] Comment on above: Order Comment: Speci men Type: BLOOD SPECIMENOrdering Facility: [facility] Address: [address] [place] [address] Performed By: #### T SCR ####[facility] BLOOD BANKCLIA [id number] [address] [address] [place] Rh Nom (Bld) Positive Normal [facility] Comment on above: Order Comment: Speci men Type: BLOOD SPECIMENOrdering Facility: [facility] Address: [address] [place] [address] Performed By: #### T SCR ####[facility] BLOOD BANKCLIA [id number] [place] [address] [place] TYPE AND SCREEN EXPIRATION 11/30/2024 23:59 Normal [facility] Comment on above: Order Comment: Speci men Type: BLOOD SPECIMENOrdering Facility: [facility] Address: [address] [place] [address] Performed By: #### T SCR ####[facility] BLOOD BANKCLIA [id number] [address] [place] Urea nitrogen post dialysis [Mass/Vol]on 11-27-2024 UREA REDUCTION RATIO WITH BUNPR 64 % Normal [facility] Comment on above: Order Comment: Speci men Type: BLOOD SPECIMENOrdering Facility: [facility] Address: [address] [place] [address] Performed By: #### 1 1064-3 ####[facility] LABCLIA [id number] [place] [id number] [place] XR CHEST 1V FRONTAL PORTon 0 11-27-2024 XR CHEST 1V FRONTAL PORT Normal [facility] XR CHEST 1V FRONTAL PORT Normal [facility] ANES POSTPROC EVALon 025 ANES POSTPROC EVAL Normal [facility] ANES PRE-OPon 11-26-2024 ANES PRE-OP Normal [facility] ARTERIAL BLOOD GASESon 11-26 Base excess Calc (Bld) [Moles/Vol] 4 mmol/L High 0-2 [facility] Comment on above: Order Comment: Speci men Type: ARTERIAL BLOOD SPECIMENOrdering Facility: [facility] Address: [address] [place], [place] [address] Performed By: #### A LLBG ####[facility] LABCLIA [id number] [place] [address] [place] Body temperature 98.6 [degF] Normal [facility] Comment on above: Order Comment: Speci men Type: ARTERIAL BLOOD SPECIMENOrdering Facility: [facility] Address: [address] [place] [address] Performed By: #### A LLBG ####[facility] LABCLIA [id number] [place] [address] [place] Calcium.ionized (Bld) [Mass/Vol] 1.13 mmol/L Normal 1.08-1.30 [facility] Comment on above: Order Comment: Speci men Type: ARTERIAL BLOOD SPECIMENOrdering Facility: [facility] Address: [address] [place] [address] Performed By: #### A LLBG ####[facility] LABCLIA [id number] [place] [address] [place] Calcium.ionized adjusted to pH 7.4 (BldA) [Moles/Vol] 1.13 mmol/L Normal 1.08-1.30 [facility] Comment on above: Order Comment: Speci men Type: ARTERIAL BLOOD SPECIMENOrdering Facility: [facility] Address: [address] [place] [address] Performed By: #### A LLBG ####[facility] LABIA [id number] [place] [address] [place] Carboxyhemoglobin (BldA) [Mass fraction] 0.0 % Normal 0.0-2.0 [facility] Comment on above: Order Comment: Speci men Type: ARTERIAL BLOOD SPECIMENOrdering Facility: [facility] Address: [address] [place] [address] Result Comment: Carb oxyhemoglobin Reference Range for Smokers: 2.0-8.0% Performed By: #### A LLBG ####[facility] LABCLIA [id number] [address] [place] [address] [place] CO2 (Bld) [Partial pressure] 48 mm Hg High 36-46 [facility] Comment on above: Order Comment: Speci men Type: ARTERIAL BLOOD SPECIMENOrdering Facility: [facility] Address: [address] [place] [address] Performed By: #### A LLBG ####[facility] LABCLIA [id number] [place] [address] [place] Glucose [Mass/Vol] 146 mg/dL High 60-105 [facility] Comment on above: Order Comment: Speci men Type: ARTERIAL BLOOD SPECIMENOrdering Facility: [facility] Address: [address] [place] [address] Performed By: #### A LLBG ####[facility] LABCLIA [id number] [place] [id number] [place] HCO3 (Bld) [Moles/Vol] 29 mmol/L High 22-26 [facility] Comment on above: Order Comment: Speci men Type: ARTERIAL BLOOD SPECIMENOrdering Facility: [facility] Address: [address] [place] [address] Performed By: #### A LLBG ####[facility] LABCLIA [id number] [place] [id number] [place] Hematocrit (Bld) [Volume fraction] 32.1 % Low 39.0-51.0 [facility] Comment on above: Order Comment: Speci men Type: ARTERIAL BLOOD SPECIMENOrdering Facility: [facility] Address: [address] [place] [address] Performed By: #### A LLBG ####[facility] LABCLIA [id number] [facility] [place] [id number] [place] Hemoglobin (Bld) [Mass/Vol] 10.4 g/dL Low 13.0-17.0 [facility] Comment on above: Order Comment: Speci men Type: ARTERIAL BLOOD SPECIMENOrdering Facility: [facility] Address: [address] [place] [address] Performed By: #### A LLBG ####[facility] LABCLIA [id number] [address] [address] [place] Lactate [Moles/Vol] 0.7 mmol/L Normal 0.5-2.2 [facility] Comment on above: Order Comment: Speci men Type: ARTERIAL BLOOD SPECIMENOrdering Facility: [facility] Address: [address] [place] [address] Performed By: #### A LLBG ####[facility] LABCLIA [id number] [place] [address] [place] LITERS 2 Liters/min Normal [facility] Comment on above: Order Comment: Speci men Type: ARTERIAL BLOOD SPECIMENOrdering Facility: [facility] Address: [address] [place] [address] Performed By: #### A LLBG ####[facility] LABCLIA [id number] [place] [address] [place] Methemoglobin (Bld) [Mass fraction] 0.5 % Normal 0.0-1.5 [facility] Comment on above: Order Comment: Speci men Type: ARTERIAL BLOOD SPECIMENOrdering Facility: [facility] Address: [address] [place] [address] Performed By: #### A LLBG ####[facility] LABCLIA [id number] [place] [id number] [place] O2 THERAPY NC = Nasal Cannula Normal [facility] Comment on above: Order Comment: Speci men Type: ARTERIAL BLOOD SPECIMENOrdering Facility: [facility] Address: [address] [place], [place] [address] Performed By: #### A LLBG ####[facility] LABCLIA [id number] [id number] [address] [place] Oxygen (Bld) [Partial pressure] 158 mm Hg High 85-95 [facility] Comment on above: Order Comment: Speci men Type: ARTERIAL BLOOD SPECIMENOrdering Facility: [facility] Address: [address] [place] [address] Performed By: #### A LLBG ####[facility] LABCLIA [id number] [place] [address] [place] Oxyhemoglobin (BldA) [Mass fraction] 97 % Normal 95-98 [facility] Comment on above: Order Comment: Speci men Type: ARTERIAL BLOOD SPECIMENOrdering Facility: [facility] Address: [address] [place] [address] Performed By: #### A LLBG ####[facility] LABCLIA [id number] [place] [id number] [place] pH (Bld) 7.40 [pH] Normal 7.35-7.45 [facility] Comment on above: Order Comment: Speci men Type: ARTERIAL BLOOD SPECIMENOrdering Facility: [facility] Address: [address] [place] [address] Performed By: #### A LLBG ####[facility] LABCLIA [id number] [place] [address] [place] Potassium [Moles/Vol] 3.8 mmol/L Normal 3.5-5.0 [facility] Comment on above: Order Comment: Speci men Type: ARTERIAL BLOOD SPECIMENOrdering Facility: [facility] Address: [address] [place] [address] Performed By: #### A LLBG ####[facility] LABIA [id number] [place] [id number] [place] Sodium [Moles/Vol] 134 mmol/L Low 136-144 [facility] Comment on above: Order Comment: Speci men Type: ARTERIAL BLOOD SPECIMENOrdering Facility: [facility] Address: [address] [place], [place] [address] Performed By: #### A LLBG ####[facility] LABCLIA [id number] [place] [address] [place] Base excess Calc (Bld) [Moles/Vol] 4 mmol/L High 0-2 [facility] Comment on above: Order Comment: Speci men Type: ARTERIAL BLOOD SPECIMENOrdering Facility: [facility] Address: [address] [place] [address] Performed By: #### A LLBG ####[facility] LABCLIA [id number] [place] [address] [place] Body temperature 97.16 [degF] Normal [facility] Comment on above: Order Comment: Speci men Type: ARTERIAL BLOOD SPECIMENOrdering Facility: [facility] Address: [address] [place] [address] Performed By: #### A LLBG ####[facility] LABCLIA [id number] [place] [address] [place] Calcium.ionized (Bld) [Mass/Vol] 1.11 mmol/L Normal 1.08-1.30 [facility] Comment on above: Order Comment: Speci men Type: ARTERIAL BLOOD SPECIMENOrdering Facility: [facility] Address: [address] [place] [address] Performed By: #### A LLBG ####[facility] LABCLIA [id number] [place] [address] [place] Calcium.ionized adjusted to pH 7.4 (BldA) [Moles/Vol] 1.10 mmol/L Normal 1.08-1.30 [facility] Comment on above: Order Comment: Speci men Type: ARTERIAL BLOOD SPECIMENOrdering Facility: [facility] Address: [address] [place] [address] Performed By: #### A LLBG ####[facility] LABCLIA [id number] [place] [id number] [place] Carboxyhemoglobin (BldA) [Mass fraction] 0.9 % Normal 0.0-2.0 [facility] Comment on above: Order Comment: Speci men Type: ARTERIAL BLOOD SPECIMENOrdering Facility: [facility] Address: [address] [place] [address] Result Comment: Carb oxyhemoglobin Reference Range for Smokers: 2.0-8.0% Performed By: #### A LLBG ####[facility] LABCLIA [id number] [place] [address] [place] CO2 (Bld) [Partial pressure] 48 mm Hg High 36-46 [facility] Comment on above: Order Comment: Speci men Type: ARTERIAL BLOOD SPECIMENOrdering Facility: [facility] Address: [address] [place] [address] Performed By: #### A LLBG ####[facility] LABCLIA [id number] [address] [place] CO2 adjusted to patient's actual temperature (Bld) [Partial pressure] 46 mmHg Normal 36-46 [facility] Comment on above: Order Comment: Speci men Type: ARTERIAL BLOOD SPECIMENOrdering Facility: [facility] Address: [address] [place] [address] Performed By: #### A LLBG ####[facility] LABCLIA [id number] [place] [address] [place] Glucose [Mass/Vol] 105 mg/dL Normal 60-105 [facility] Comment on above: Order Comment: Speci men Type: ARTERIAL BLOOD SPECIMENOrdering Facility: [facility] Address: [address] [place] [address] Performed By: #### A LLBG ####[facility] LABCLIA [id number] [place] [id number] [place] HCO3 (Bld) [Moles/Vol] 29 mmol/L High 22-26 [facility] Comment on above: Order Comment: Speci men Type: ARTERIAL BLOOD SPECIMENOrdering Facility: [facility] Address: [address] [place] [address] Performed By: #### A LLBG ####[facility] LABCLIA [id number] [place] [address] [place] Hematocrit (Bld) [Volume fraction] 33.0 % Low 39.0-51.0 [facility] Comment on above: Order Comment: Speci men Type: ARTERIAL BLOOD SPECIMENOrdering Facility: [facility] Address: [address] [place] [address] Performed By: #### A LLBG ####[facility] LABIA [id number] [place] [address] [place] Hemoglobin (Bld) [Mass/Vol] 10.7 g/dL Low 13.0-17.0 [facility] Comment on above: Order Comment: Speci men Type: ARTERIAL BLOOD SPECIMENOrdering Facility: [facility] Address: [address] [place] [address] Performed By: #### A LLBG ####[facility] LABCLIA [id number] [place] [address] [place] Lactate [Moles/Vol] 0.7 mmol/L Normal 0.5-2.2 [facility] Comment on above: Order Comment: Speci men Type: ARTERIAL BLOOD SPECIMENOrdering Facility: [facility] Address: [address] [place] [address] Performed By: #### A LLBG ####[facility] LABCLIA [id number] [place] [address] [place] LITERS 4 Liters/min Normal [facility] Comment on above: Order Comment: Speci men Type: ARTERIAL BLOOD SPECIMENOrdering Facility: [facility] Address: [address] [place] [address] Performed By: #### A LLBG ####[facility] LABCLIA [id number] [address] [place] [address] [place] Methemoglobin (Bld) [Mass fraction] 1.0 % Normal 0.0-1.5 [facility] Comment on above: Order Comment: Speci men Type: ARTERIAL BLOOD SPECIMENOrdering Facility: [facility] Address: [address] [place] [id number] Performed By: #### A LLBG ####[facility] LABCLIA [id number] [address] [address] [place] O2 THERAPY NC = Nasal Cannula Normal [facility] Comment on above: Order Comment: Speci men Type: ARTERIAL BLOOD SPECIMENOrdering Facility: [facility] Address: [address] [place] [id number] Performed By: #### A LLBG ####[facility] LABCLIA [id number] [address] [address] [place] Oxygen (Bld) [Partial pressure] 154 mm Hg High 85-95 [facility] Comment on above: Order Comment: Speci men Type: ARTERIAL BLOOD SPECIMENOrdering Facility: [facility] Address: [address] [place] [id number] Performed By: #### A LLBG ####[facility] LABCLIA [id number] [address] [address] [place] Oxygen adjusted to patient's actual temperature (Bld) [Partial pressure] 150 mmHg High 85-95 [facility] Comment on above: Order Comment: Speci men Type: ARTERIAL BLOOD SPECIMENOrdering Facility: [facility] Address: [address] [place] [address] Performed By: #### A LLBG ####[facility] LABCLIA [id number] [address] [address] [place] Oxyhemoglobin (BldA) [Mass fraction] 97 % Normal 95-98 [facility] Comment on above: Order Comment: Speci men Type: ARTERIAL BLOOD SPECIMENOrdering Facility: [facility] Address: [address] [place] [address] Performed By: #### A LLBG ####[facility] LABIA [id number] [place] [address] [place] pH (Bld) 7.40 [pH] Normal 7.35-7.45 [facility] Comment on above: Order Comment: Speci men Type: ARTERIAL BLOOD SPECIMENOrdering Facility: [facility] Address: [address] [place] [address] Performed By: #### A LLBG ####[facility] LABIA [id number] [place] [address] [place] pH adjusted to patient's actual temperature (Bld) 7.41 Normal 7.35-7.45 [facility] Comment on above: Order Comment: Speci men Type: ARTERIAL BLOOD SPECIMENOrdering Facility: [facility] Address: [address] [place] [address] Performed By: #### A LLBG ####[facility] LABIA [id number] [place] [id number] [place] Potassium [Moles/Vol] 3.7 mmol/L Normal 3.5-5.0 [facility] Comment on above: Order Comment: Speci men Type: ARTERIAL BLOOD SPECIMENOrdering Facility: [facility] Address: [address] [place] [address] Performed By: #### A LLBG ####[facility] LABIA [id number] [place] [id number] [place] Sodium [Moles/Vol] 134 mmol/L Low 136-144 [facility] Comment on above: Order Comment: Speci men Type: ARTERIAL BLOOD SPECIMENOrdering Facility: [facility] Address: [address] [place] [address] Performed By: #### A LLBG ####[facility] LABIA [id number] [place] [id number] [place] Base deficit (BldA) [Moles/Vol] -1 mmol/L Normal -2-0 [facility] Comment on above: Order Comment: Speci men Type: ARTERIAL BLOOD SPECIMENOrdering Facility: [facility] Address: [address] [place] [address] Performed By: #### A LLBG ####[facility] LABCLIA [id number] [place] [address] [place] Body temperature 97.7 [degF] Normal [facility] Comment on above: Order Comment: Speci men Type: ARTERIAL BLOOD SPECIMENOrdering Facility: [facility] Address: [address] [place] [address] Performed By: #### A LLBG ####[facility] LABCLIA [id number] [place] [address] [place] Calcium.ionized (Bld) [Mass/Vol] 1.10 mmol/L Normal 1.08-1.30 [facility] Comment on above: Order Comment: Speci men Type: ARTERIAL BLOOD SPECIMENOrdering Facility: [facility] Address: [address] [place] [address] Performed By: #### A LLBG ####[facility] LABIA [id number] [place] [address] [place] Calcium.ionized adjusted to pH 7.4 (BldA) [Moles/Vol] 1.09 mmol/L Normal 1.08-1.30 [facility] Comment on above: Order Comment: Speci men Type: ARTERIAL BLOOD SPECIMENOrdering Facility: [facility] Address: [address] [place] [address] Performed By: #### A LLBG ####[facility] LABIA [id number] [place] [address] [place] Carboxyhemoglobin (BldA) [Mass fraction] 1.0 % Normal 0.0-2.0 [facility] Comment on above: Order Comment: Speci men Type: ARTERIAL BLOOD SPECIMENOrdering Facility: [facility] Address: [address] [place] [place] [address] Result Comment: Carb oxyhemoglobin Reference Range for Smokers: 2.0-8.0% Performed By: #### A LLBG ####[facility] LABCLIA [id number] [address] [address] [place] CO2 (Bld) [Partial pressure] 42 mm Hg Normal 36-46 [facility] Comment on above: Order Comment: Speci men Type: ARTERIAL BLOOD SPECIMENOrdering Facility: [facility] Address: [address] [place] [address] Performed By: #### A LLBG ####[facility] LABCLIA [id number] [place] [address] [place] CO2 adjusted to patient's actual temperature (Bld) [Partial pressure] 41 mmHg Normal 36-46 [facility] Comment on above: Order Comment: Speci men Type: ARTERIAL BLOOD SPECIMENOrdering Facility: [facility] Address: [address] [place] [address] Performed By: #### A LLBG ####[facility] LABCLIA [id number] [place] [address] [place] Glucose [Mass/Vol] 81 mg/dL Normal 60-105 [facility] Comment on above: Order Comment: Speci men Type: ARTERIAL BLOOD SPECIMENOrdering Facility: [facility] Address: [address] [place] [place] [address] Performed By: #### A LLBG ####[facility] LABCLIA [id number] [place] [id number] [place] HCO3 (Bld) [Moles/Vol] 24 mmol/L Normal 22-26 [facility] Comment on above: Order Comment: Speci men Type: ARTERIAL BLOOD SPECIMENOrdering Facility: [facility] Address: [address] [place] [place] [address] Performed By: #### A LLBG ####[facility] LABCLIA [id number] [place] [address] [place] Hematocrit (Bld) [Volume fraction] 32.8 % Low 39.0-51.0 [facility] Comment on above: Order Comment: Speci men Type: ARTERIAL BLOOD SPECIMENOrdering Facility: [facility] Address: [address] [place] [address] Performed By: #### A LLBG ####[facility] LABCLIA [id number] [place] [address] [place] Hemoglobin (Bld) [Mass/Vol] 10.6 g/dL Low 13.0-17.0 [facility] Comment on above: Order Comment: Speci men Type: ARTERIAL BLOOD SPECIMENOrdering Facility: [facility] Address: [address] [place] [address] Performed By: #### A LLBG ####[facility] LABIA [id number] [place] [address] [place] Lactate [Moles/Vol] 0.5 mmol/L Normal 0.5-2.2 [facility] Comment on above: Order Comment: Speci men Type: ARTERIAL BLOOD SPECIMENOrdering Facility: [facility] Address: [address] [place] [address] Performed By: #### A LLBG ####[facility] LABIA [id number] [place] [address] [place] LITERS 2 Liters/min Normal [facility] Comment on above: Order Comment: Speci men Type: ARTERIAL BLOOD SPECIMENOrdering Facility: [facility] Address: [address] [place] [address] Performed By: #### A LLBG ####[facility] LABIA [id number] [place] [address] [place] Methemoglobin (Bld) [Mass fraction] 0.9 % Normal 0.0-1.5 [facility] Comment on above: Order Comment: Speci men Type: ARTERIAL BLOOD SPECIMENOrdering Facility: [facility] Address: [address] [place] [address] Performed By: #### A LLBG ####[facility] LABCLIA [id number] [address] [place] [address] [place] O2 THERAPY NC = Nasal Cannula Normal [facility] Comment on above: Order Comment: Speci men Type: ARTERIAL BLOOD SPECIMENOrdering Facility: [facility] Address: [address] [place] [phone] Performed By: #### A LLBG ####[facility] LABCLIA [id number] [address] [address] [place] Oxygen (Bld) [Partial pressure] 152 mm Hg High 85-95 [facility] Comment on above: Order Comment: Speci men Type: ARTERIAL BLOOD SPECIMENOrdering Facility: [facility] Address: [address] [place], [place] [id number] Performed By: #### A LLBG ####[facility] LABCLIA [id number] [address] [address] [place] Oxygen adjusted to patient's actual temperature (Bld) [Partial pressure] 149 mmHg High 85-95 [facility] Comment on above: Order Comment: Speci men Type: ARTERIAL BLOOD SPECIMENOrdering Facility: [facility] Address: [address] [place] [phone] Performed By: #### A LLBG ####[facility] LABCLIA [id number] [address] [place] [address] [place] Oxyhemoglobin (BldA) [Mass fraction] 97 % Normal 95-98 [facility] Comment on above: Order Comment: Speci men Type: ARTERIAL BLOOD SPECIMENOrdering Facility: [facility] Address: [address] [place], [place] [id number] Performed By: #### A LLBG ####[facility] LABCLIA [id number] [place] [address] [place] pH (Bld) 7.37 [pH] Normal 7.35-7.45 [facility] Comment on above: Order Comment: Speci men Type: ARTERIAL BLOOD SPECIMENOrdering Facility: [facility] Address: [address] [place] [address] Performed By: #### A LLBG ####[facility] LABCLIA [id number] [place] [address] [place] pH adjusted to patient's actual temperature (Bld) 7.38 Normal 7.35-7.45 [facility] Comment on above: Order Comment: Speci men Type: ARTERIAL BLOOD SPECIMENOrdering Facility: [facility] Address: [address] [place] [address] Performed By: #### A LLBG ####[facility] LABCLIA [id number] [place] [address] [place] Potassium [Moles/Vol] 5.2 mmol/L High 3.5-5.0 [facility] Comment on above: Order Comment: Speci men Type: ARTERIAL BLOOD SPECIMENOrdering Facility: [facility] Address: [address] [place] [address] Performed By: #### A LLBG ####[facility] LABCLIA [id number] [place] [address] [place] Sodium [Moles/Vol] 128 mmol/L Low 136-144 [facility] Comment on above: Order Comment: Speci men Type: ARTERIAL BLOOD SPECIMENOrdering Facility: [facility] Address: [address] [place], [place] [id number] Performed By: #### A LLBG ####[facility] LABCLIA [id number] [place] [address] [place] Base deficit (BldA) [Moles/Vol] mmol/L Normal -2-0 [facility] Comment on above: Order Comment: Speci men Type: ARTERIAL BLOOD SPECIMENOrdering Facility: [facility] Address: [address] [place] [address] Performed By: #### A LLBG ####[facility] [id number] [place] [address] [place] Body temperature 97.52 [degF] Normal [facility] Comment on above: Order Comment: Speci men Type: ARTERIAL BLOOD SPECIMENOrdering Facility: [facility] Address: [address] [place] [address] Performed By: #### A LLBG ####[facility] [id number] [place] [address] [place] Calcium.ionized (Bld) [Mass/Vol] 1.07 mmol/L Low 1.08-1.30 [facility] Comment on above: Order Comment: Speci men Type: ARTERIAL BLOOD SPECIMENOrdering Facility: [facility] Address: [address] [place] [address] Performed By: #### A LLBG ####[facility] [id number] [place] [address] [place] Calcium.ionized adjusted to pH 7.4 (BldA) [Moles/Vol] 1.06 mmol/L Low 1.08-1.30 [facility] Comment on above: Order Comment: Speci men Type: ARTERIAL BLOOD SPECIMENOrdering Facility: [facility] Address: [address] [place] [place] [address] Performed By: #### A LLBG ####[facility] [id number] [place] [address] [place] Carboxyhemoglobin (BldA) [Mass fraction] 0.4 % Normal 0.0-2.0 [facility] Comment on above: Order Comment: Speci men Type: ARTERIAL BLOOD SPECIMENOrdering Facility: [facility] Address: [address] [place] [address] Result Comment: Carb oxyhemoglobin Reference Range for Smokers: 2.0-8.0% Performed By: #### A LLBG ####[facility] LABCLIA [id number] [facility] [address], [place] [address] [place] CO2 (Bld) [Partial pressure] 44 mm Hg Normal 36-46 [facility] Comment on above: Order Comment: Speci men Type: ARTERIAL BLOOD SPECIMENOrdering Facility: [facility] Address: [address] [place] [address] Performed By: #### A LLBG ####[facility] LABCLIA [id number] [facility] [address], [place] [address] [place] CO2 adjusted to patient's actual temperature (Bld) [Partial pressure] 42 mmHg Normal 36-46 [facility] Comment on above: Order Comment: Speci men Type: ARTERIAL BLOOD SPECIMENOrdering Facility: [facility] Address: [address] [place] [address] Performed By: #### A LLBG ####[facility] LABCLIA [id number] [place] [address] [place] Glucose [Mass/Vol] 142 mg/dL High 60-105 [facility] Comment on above: Order Comment: Speci men Type: ARTERIAL BLOOD SPECIMENOrdering Facility: [facility] Address: [address] [place] [address] Performed By: #### A LLBG ####[facility] LABCLIA [id number] [place] [id number] [place] HCO3 (Bld) [Moles/Vol] 25 mmol/L Normal 22-26 [facility] Comment on above: Order Comment: Speci men Type: ARTERIAL BLOOD SPECIMENOrdering Facility: [facility] Address: [address] [place] [address] Performed By: #### A LLBG ####[facility] LABCLIA [id number] [place] [id number] [place] Hematocrit (Bld) [Volume fraction] 33.9 % Low 39.0-51.0 [facility] Comment on above: Order Comment: Speci men Type: ARTERIAL BLOOD SPECIMENOrdering Facility: [facility] Address: [address] [place] [address] Performed By: #### A LLBG ####[facility] LABIA [id number] [address] [address] [place] Hemoglobin (Bld) [Mass/Vol] 11.0 g/dL Low 13.0-17.0 [facility] Comment on above: Order Comment: Speci men Type: ARTERIAL BLOOD SPECIMENOrdering Facility: [facility] Address: [address] [place] [address] Performed By: #### A LLBG ####[facility] LABIA [id number] [place] [address] [place] Lactate [Moles/Vol] 0.9 mmol/L Normal 0.5-2.2 [facility] Comment on above: Order Comment: Speci men Type: ARTERIAL BLOOD SPECIMENOrdering Facility: [facility] Address: [address] [place] [address] Performed By: #### A LLBG ####[facility] LABIA [id number] [place] [address] [place] LITERS 1 Liters/min Normal [facility] Comment on above: Order Comment: Speci men Type: ARTERIAL BLOOD SPECIMENOrdering Facility: [facility] Address: [address] [place] [address] Performed By: #### A LLBG ####[facility] LABIA [id number] [place] [id number] [place] Methemoglobin (Bld) [Mass fraction] 0.5 % Normal 0.0-1.5 [facility] Comment on above: Order Comment: Speci men Type: ARTERIAL BLOOD SPECIMENOrdering Facility: [facility] Address: [address] [place] [address] Performed By: #### A LLBG ####[facility] LABCLIA [id number] [address] [place] [address] [place] O2 THERAPY NC = Nasal Cannula Normal [facility] Comment on above: Order Comment: Speci men Type: ARTERIAL BLOOD SPECIMENOrdering Facility: [facility] Address: [address] [place], [place] [id number] Performed By: #### A LLBG ####[facility] LABCLIA [id number] [address] [place] [address] [place] Oxygen (Bld) [Partial pressure] 131 mm Hg High 85-95 [facility] Comment on above: Order Comment: Speci men Type: ARTERIAL BLOOD SPECIMENOrdering Facility: [facility] Address: [address] [place] [address] Performed By: #### A LLBG ####[facility] LABCLIA [id number] [address] [address] [place] Oxygen adjusted to patient's actual temperature (Bld) [Partial pressure] 127 mmHg High 85-95 [facility] Comment on above: Order Comment: Speci men Type: ARTERIAL BLOOD SPECIMENOrdering Facility: [facility] Address: [address] [place], [place] [id number] Performed By: #### A LLBG ####[facility] LABCLIA [id number] [address] [address] [place] Oxyhemoglobin (BldA) [Mass fraction] 96 % Normal 95-98 [facility] Comment on above: Order Comment: Speci men Type: ARTERIAL BLOOD SPECIMENOrdering Facility: [facility] Address: [address] [place], [place] [address] Performed By: #### A LLBG ####[facility] LABCLIA [id number] [address] [address] [place] pH (Bld) 7.37 [pH] Normal 7.35-7.45 [facility] Comment on above: Order Comment: Speci men Type: ARTERIAL BLOOD SPECIMENOrdering Facility: [facility] Address: [address] [place] [address] Performed By: #### A LLBG ####[facility] LABIA [id number] [place] [address] [place] pH adjusted to patient's actual temperature (Bld) 7.38 Normal 7.35-7.45 [facility] Comment on above: Order Comment: Speci men Type: ARTERIAL BLOOD SPECIMENOrdering Facility: [facility] Address: [address] [place] [address] Performed By: #### A LLBG ####[facility] LABIA [id number] [place] [address] [place] Potassium [Moles/Vol] 5.4 mmol/L High 3.5-5.0 [facility] Comment on above: Order Comment: Speci men Type: ARTERIAL BLOOD SPECIMENOrdering Facility: [facility] Address: [address] [place] [address] Performed By: #### A LLBG ####[facility] [id number] [place] [address] [place] ARTERIAL BLOOD GASES WITH IO NIZED MAGNESIUMon 11-26-2024 Base excess Calc (Bld) [Moles/Vol] 6 mmol/L High 0-2 [facility] Comment on above: Order Comment: Speci men Type: ARTERIAL BLOOD SPECIMENOrdering Facility: [facility] Address: [address] [place] [address] Performed By: #### A LLMG ####[facility] [id number] [place] [address] [place] Calcium.ionized (Bld) [Mass/Vol] 1.09 mmol/L Normal 1.08-1.30 [facility] Comment on above: Order Comment: Speci men Type: ARTERIAL BLOOD SPECIMENOrdering Facility: [facility] Address: [address] [place] [address] Performed By: #### A LLMG ####[facility] LABCLIA [id number] [place] [address] [place] Calcium.ionized adjusted to pH 7.4 (BldA) [Moles/Vol] 1.12 mmol/L Normal 1.08-1.30 [facility] Comment on above: Order Comment: Speci men Type: ARTERIAL BLOOD SPECIMENOrdering Facility: [facility] Address: [address] [place] [address] Performed By: #### A LLMG ####[facility] LABIA [id number] [place] [address] [place] Carboxyhemoglobin (BldA) [Mass fraction] 0.0 % Normal 0.0-2.0 [facility] Comment on above: Order Comment: Speci men Type: ARTERIAL BLOOD SPECIMENOrdering Facility: [facility] Address: [address] [place] [address] Result Comment: Carb oxyhemoglobin Reference Range for Smokers: 2.0-8.0% Performed By: #### A LLMG ####[facility] LABCLIA [id number] [place] [address] [place] CO2 (Bld) [Partial pressure] 43 mm Hg Normal 36-46 [facility] Comment on above: Order Comment: Speci men Type: ARTERIAL BLOOD SPECIMENOrdering Facility: [facility] Address: [address] [place] [address] Performed By: #### A LLMG ####[facility] LABCLIA [id number] [place] [address] [place] CO2 adjusted to patient's actual temperature (Bld) [Partial pressure] 43 mmHg Normal 36-46 [facility] Comment on above: Order Comment: Speci men Type: ARTERIAL BLOOD SPECIMENOrdering Facility: [facility] Address: [address] [place] [address] Performed By: #### A LLMG ####[facility] LABCLIA [id number] [place] [id number] [place] Glucose [Mass/Vol] 83 mg/dL Normal 60-105 [facility] Comment on above: Order Comment: Speci men Type: ARTERIAL BLOOD SPECIMENOrdering Facility: [facility] Address: [address] [place] [address] Performed By: #### A LLMG ####[facility] LABCLIA [id number] [place] [address] [place] HCO3 (Bld) [Moles/Vol] 30 mmol/L High 22-26 [facility] Comment on above: Order Comment: Speci men Type: ARTERIAL BLOOD SPECIMENOrdering Facility: [facility] Address: [address] [place] [address] Performed By: #### A LLMG ####[facility] LABCLIA [id number] [place] [address] [place] Hematocrit (Bld) [Volume fraction] 32.9 % Low 39.0-51.0 [facility] [facility] Comment on above: Order Comment: Speci men Type: ARTERIAL BLOOD SPECIMENOrdering Facility: [facility] Address: [address] [place] [address] Performed By: #### A LLMG ####[facility] LABCLIA [id number] [place] [address] [place] Hemoglobin (Bld) [Mass/Vol] 10.7 g/dL Low 13.0-17.0 [facility] Comment on above: Order Comment: Speci men Type: ARTERIAL BLOOD SPECIMENOrdering Facility: [facility] Address: [address] [place] [address] Performed By: #### A LLMG ####[facility] LABCLIA [id number] [place] [id number] [place] Lactate [Moles/Vol] 0.6 mmol/L Normal 0.5-2.2 [facility] Comment on above: Order Comment: Speci men Type: ARTERIAL BLOOD SPECIMENOrdering Facility: [facility] Address: [address] [place] [address] Performed By: #### A LLMG ####[facility] LABCLIA [id number] [address] [place] [address] [place] Magnesium [Moles/Vol] 0.59 mmol/L Normal 0.45-0.60 [facility] Comment on above: Order Comment: Speci men Type: ARTERIAL BLOOD SPECIMENOrdering Facility: [facility] Address: [address] [place], [place] [address] Performed By: #### A LLMG ####[facility] LABCLIA [id number] [place] [id number] [place] Methemoglobin (Bld) [Mass fraction] 0.5 % Normal 0.0-1.5 [facility] Comment on above: Order Comment: Speci men Type: ARTERIAL BLOOD SPECIMENOrdering Facility: [facility] Address: [address] [place], [place] [address] Performed By: #### A LLMG ####[facility] LABCLIA [id number] [address] [address] [place] Oxygen (Bld) [Partial pressure] 132 mm Hg High 85-95 [facility] Comment on above: Order Comment: Speci men Type: ARTERIAL BLOOD SPECIMENOrdering Facility: [facility] Address: [address] [place], [place] [address] Performed By: #### A LLMG ####[facility] LABCLIA [id number] [address] [place] [address] [place] Oxygen adjusted to patient's actual temperature (Bld) [Partial pressure] 132 mmHg High 85-95 [facility] Comment on above: Order Comment: Speci men Type: ARTERIAL BLOOD SPECIMENOrdering Facility: [facility] Address: [address] [place] [address] Performed By: #### A LLMG ####[facility] LABCLIA [id number] [place] [id number] [place] Oxyhemoglobin (BldA) [Mass fraction] 97 % Normal 95-98 [facility] Comment on above: Order Comment: Speci men Type: ARTERIAL BLOOD SPECIMENOrdering Facility: [facility] Address: [address] [place] [address] Performed By: #### A LLMG ####[facility] LABCLIA [id number] [place] [address] [place] pH (Bld) 7.46 [pH] High 7.35-7.45 [facility] Comment on above: Order Comment: Speci men Type: ARTERIAL BLOOD SPECIMENOrdering Facility: [facility] Address: [address] [place] [address] Performed By: #### A LLMG ####[facility] LABCLIA [id number] [place] [address] [place] pH adjusted to patient's actual temperature (Bld) 7.46 High 7.35-7.45 [facility] Comment on above: Order Comment: Speci men Type: ARTERIAL BLOOD SPECIMENOrdering Facility: [facility] Address: [address] [place] [address] Performed By: #### A LLMG ####[facility] LABCLIA [id number] [place] [address] [place] Potassium [Moles/Vol] 3.7 mmol/L Normal 3.5-5.0 [facility] Comment on above: Order Comment: Speci men Type: ARTERIAL BLOOD SPECIMENOrdering Facility: [facility] Address: [address] [place] [address] Performed By: #### A LLMG ####[facility] LABCLIA [id number] [place] [id number] [place] Sodium [Moles/Vol] 133 mmol/L Low 136-144 [facility] Comment on above: Order Comment: Speci men Type: ARTERIAL BLOOD SPECIMENOrdering Facility: [facility] Address: [address] [place] [address] Performed By: #### A LLMG ####[facility] LABCLIA [id number] [place] [id number] [place] BRIEF OP NOTon 11-26-2024 BRIEF OP NOT Normal [facility] BUN p dialysis SerPl-mCncon 11-26-2024 Urea nitrogen post dialysis [Mass/Vol] 30 mg/dL High 02-13 [facility] Comment on above: Order Comment: Speci men Type: BLOOD SPECIMENOrdering Facility: [facility] Address: [address] [place] [address] Performed By: #### 1 1064-3 ####[facility] LABCLIA [id number] [address] [place] BUN pre dial SerPl-mCncon Urea nitrogen pre dialysis [Mass/Vol] 96 mg/dL High 02-13 [facility] Comment on above: Order Comment: Speci men Type: BLOOD SPECIMENOrdering Facility: [facility] Address: [address] [place] [address] Performed By: #### 1 1065-0 ####[facility] LABCLIA [id number] [address] [place] Basic Metabolic Profile (BMP )on 11-26-2024 BUN Normal 4-19 [facility] Comment on above: Result Comment: Canc elled via OM: MD Ordered Performed By: #### L 500.2500, L100.0100 ####[facility] [address] [place], [address] BUN/CRE Normal 10-20 [facility] Comment on above: Result Comment: Canc elled via OM: MD Ordered Performed By: #### L 500.2500, L100.0100 ####[facility] [address] [place], [address] Calcium Normal 7.6-11.0 [facility] Comment on above: Result Comment: Canc elled via OM: MD Ordered Performed By: #### L 500.2500, L100.0100 ####[facility] [address] [place], [address] CL Normal 98-108 [facility] Comment on above: Result Comment: Canc elled via OM: MD Ordered Performed By: #### L 500.2500, L100.0100 ####[facility] [address] [place], [address] CO2 Normal 21.0-32.0 [facility] Comment on above: Result Comment: Canc elled via OM: MD Ordered Performed By: #### L 500.2500, L100.0100 ####[facility] [address] [place], [address] CREAT,SERUM Normal 0.70-1.20 [facility] Comment on above: Result Comment: Canc elled via OM: MD Ordered Performed By: #### L 500.2500, L100.0100 ####[facility] [address] [place], [address] eGFR Normal >60 [facility] Comment on above: Result Comment: Canc elled via OM: MD Ordered Performed By: #### L 500.2500, L100.0100 ####[facility] [address] [place], [address] GAP Normal 5-15 [facility] Comment on above: Result Comment: Canc elled via OM: MD Ordered Performed By: #### L 500.2500, L100.0100 ####[facility] [address] [place], [address] GLU Normal 70-99 [facility] Comment on above: Result Comment: Canc elled via OM: MD Ordered Performed By: #### L 500.2500, L100.0100 ####[facility] [address] [place], [address] Potassium Normal 3.3-5.1 [facility] Comment on above: Result Comment: Canc elled via OM: MD Ordered Performed By: #### L 500.2500, L100.0100 ####[facility] [address] [place], [address] Basic Metabolic Profile (BMP) Normal 133-145 [facility] Comment on above: Result Comment: Canc elled via OM: MD Ordered Performed By: #### L 500.2500, L100.0100 ####[facility] [address] [place], [address] CASE MGT INIT ASSESon 07-- 2024 CASE MGT INIT ASSES Normal [facility] CBC W/Diff, Automatedon 07-0 Absolute Neut Normal 2.0-7.7 [facility] Comment on above: Result Comment: Canc elled via OM: MD Ordered Performed By: #### L 500.2500, L100.0100 ####[facility] [address] [place], [address] HCT Normal 40-54 [facility] Comment on above: Result Comment: Canc elled via OM: MD Ordered Performed By: #### L 500.2500, L100.0100 ####[facility] [address] [place], [address] HGB Normal 13.0-16.5 [facility] Comment on above: Result Comment: Canc elled via OM: MD Ordered Performed By: #### L 500.2500, L100.0100 ####[facility] [address] [place], [address] MCH Normal 27.0-32.0 [facility] Comment on above: Result Comment: Canc elled via OM: MD Ordered Performed By: #### L 500.2500, L100.0100 ####[facility] [address] [place], [address] MCHC Normal 32-36 [facility] Comment on above: Result Comment: Canc elled via OM: MD Ordered Performed By: #### L 500.2500, L100.0100 ####[facility] [address] [place], [address] MCV Normal 80-94 [facility] Comment on above: Result Comment: Canc elled via OM: MD Ordered Performed By: #### L 500.2500, L100.0100 ####[facility] [address] [place], [address] NEUT% Normal 47-70 [facility] Comment on above: Result Comment: Canc elled via OM: MD Ordered Performed By: #### L 500.2500, L100.0100 ####[facility] [address] [place], [address] PLT Normal 150-450 [facility] Comment on above: Result Comment: Canc elled via OM: MD Ordered Performed By: #### L 500.2500, L100.0100 ####[facility] [address] [place], [address] RBC Normal 4.6-6.2 [facility] Comment on above: Result Comment: Canc elled via OM: MD Ordered Performed By: #### L 500.2500, L100.0100 ####[facility] [address] [place], [address] RDW CV Normal 11.6-14.6 [facility] Comment on above: Result Comment: Canc elled via OM: MD Ordered Performed By: #### L 500.2500, L100.0100 ####[facility] [address] [place], [address] RDW SD Normal 35.1-43.9 [facility] Comment on above: Result Comment: Canc elled via OM: MD Ordered Performed By: #### L 500.2500, L100.0100 ####[facility] [address] [place], [address] WBC Normal 4.4-11.0 [facility] Comment on above: Result Comment: Canc elled via OM: MD Ordered Performed By: #### L 500.2500, L100.0100 ####[facility] [address] [place], [address] CBC panel Auto (Bld)on 11-26 Erythrocyte distribution width (RBC) [Ratio] 15.9 % High 11.5-15.0 [facility] Comment on above: Order Comment: Speci men Type: BLOOD SPECIMENOrdering Facility: [facility] Address: [address] [place] [address] Performed By: #### 5 8410-2 ####[facility] LABCLIA [id number] [place] [address] [place] Hematocrit (Bld) [Volume fraction] 33.8 % Low 39.0-51.0 [facility] Comment on above: Order Comment: Speci men Type: BLOOD SPECIMENOrdering Facility: [facility] Address: [address] [place] [address] Performed By: #### 5 8410-2 ####[facility] LABCLIA [id number] [place] [address] [place] Hemoglobin (Bld) [Mass/Vol] 10.7 g/dL Low 13.0-17.0 [facility] Comment on above: Order Comment: Speci men Type: BLOOD SPECIMENOrdering Facility: [facility] Address: [address] [place] [address] Performed By: #### 5 8410-2 ####[facility] LABCLIA [id number] [address] [place] [address] [place] MCH (RBC) [Entitic mass] 28.2 pg Normal 26.0-34.0 [facility] Comment on above: Order Comment: Speci men Type: BLOOD SPECIMENOrdering Facility: [facility] Address: [address] [place] [address] Performed By: #### 5 8410-2 ####[facility] LABCLIA [id number] [place] [address] [place] MCHC (RBC) [Mass/Vol] 31.7 g/dL Normal 30.5-36.0 [facility] Comment on above: Order Comment: Speci men Type: BLOOD SPECIMENOrdering Facility: [facility] Address: [address] [place] [address] Performed By: #### 5 8410-2 ####[facility] LABCLIA [id number] [address] [place] MCV (RBC) [Entitic vol] 88.9 fL Normal 80.0-100.0 [facility] Comment on above: Order Comment: Speci men Type: BLOOD SPECIMENOrdering Facility: [facility] Address: [address] [place] [address] Performed By: #### 5 8410-2 ####[facility] LABIA [id number] [place] [address] [place] Nucleated RBC (Bld) [#/Vol] 10*3/uL Normal <0.01 [facility] Comment on above: Order Comment: Speci men Type: BLOOD SPECIMENOrdering Facility: [facility] Address: [address] [place] [address] Performed By: #### 5 8410-2 ####[facility] LABCLIA [id number] [place] [address] [place] Platelet mean volume (Bld) [Entitic vol] 12.2 fL Normal 9.0-12.7 [facility] Comment on above: Order Comment: Speci men Type: BLOOD SPECIMENOrdering Facility: [facility] Address: [address] [place] [address] Performed By: #### 5 8410-2 ####[facility] LABIA [id number] [place] [address] [place] Platelets (Bld) [#/Vol] 133 10*3/uL Low 150-400 [facility] Comment on above: Order Comment: Speci men Type: BLOOD SPECIMENOrdering Facility: [facility] Address: [address] [place] [address] Performed By: #### 5 8410-2 ####[facility] LABIA [id number] [place] [address] [place] RBC (Bld) [#/Vol] 3.80 10*6/uL Low 4.20-6.00 [facility] Comment on above: Order Comment: Speci men Type: BLOOD SPECIMENOrdering Facility: [facility] Address: [address] [place] [address] Performed By: #### 5 8410-2 ####[facility] LABIA [id number] [place] [address] [place] WBC (Bld) [#/Vol] 8.99 10*3/uL Normal 3.70-11.00 [facility] Comment on above: Order Comment: Speci men Type: BLOOD SPECIMENOrdering Facility: [facility] Address: [address] [place] [address] Performed By: #### 5 8410-2 ####[facility] LABIA [id number] [place] [address] [place] CONSULT PROGon 11-26-2024 CONSULT PROG Normal [facility] Comp Metab 2000 Pnl SerPlon 11-26-2024 Sodium [Moles/Vol] 129 mmol/L Low 136-144 [facility] Comment on above: Order Comment: Speci men Type: BLOOD SPECIMENOrdering Facility: [facility] Address: [address] [place] [address] Performed By: #### 2 4323-8, 19104-5 ####[facility] LABCLIA [id number] [address], [address] STATES OF [facility] Order Comment: Speci men Type: ARTERIAL BLOOD SPECIMENOrdering Facility: [facility] Address: [address] [place] [address] Performed By: #### A LLBG ####[facility] LABCLIA [id number] [address], [address] OF [facility] Comprehensive metabolic 2000 panelon 11-26-2024 Albumin [Mass/Vol] 3.4 g/dL Low 3.9-4.9 [facility] Comment on above: Order Comment: Speci men Type: BLOOD SPECIMENOrdering Facility: [facility] Address: [address] [place] [address] Performed By: #### 2 4323-8 ####[facility] LABCLIA [id number] [place] [address] [place] ALP [Catalytic activity/Vol] 64 U/L Normal 38-113 [facility] Comment on above: Order Comment: Speci men Type: BLOOD SPECIMENOrdering Facility: [facility] Address: [address] [place] [address] Performed By: #### 2 4323-8 ####[facility] LABCLIA [id number] [address] [place] ALT [Catalytic activity/Vol] 34 U/L Normal 10-54 [facility] Comment on above: Order Comment: Speci men Type: BLOOD SPECIMENOrdering Facility: [facility] Address: [address] [place] [address] Performed By: #### 2 4323-8 ####[facility] LABCLIA [id number] [address], [facility] [place] Anion gap [Moles/Vol] 19 mmol/L High 8-15 [facility] Comment on above: Order Comment: Speci men Type: BLOOD SPECIMENOrdering Facility: [facility] Address: [address] [place] [address] Performed By: #### 2 4323-8 ####[facility] LABCLIA [id number] [address] [address] [place] AST [Catalytic activity/Vol] 21 U/L Normal 14-40 [facility] Comment on above: Order Comment: Speci men Type: BLOOD SPECIMENOrdering Facility: [facility] Address: [address] [place] [address] Performed By: #### 2 4323-8 ####[facility] LABCLIA [id number] [place] [address] [place] Bilirubin [Mass/Vol] 0.3 mg/dL Normal 0.2-1.3 [facility] Comment on above: Order Comment: Speci men Type: BLOOD SPECIMENOrdering Facility: [facility] Address: [address] [place] [address] Performed By: #### 2 4323-8 ####[facility] LABIA [id number] [place] [address] [place] Calcium [Mass/Vol] 8.7 mg/dL Normal 8.5-10.2 [facility] Comment on above: Order Comment: Speci men Type: BLOOD SPECIMENOrdering Facility: [facility] Address: [address] [place], [place] [address] Performed By: #### 2 4323-8 ####[facility] LABCLIA [id number] [place] [id number] [place] Chloride [Moles/Vol] 89 mmol/L Low 98-107 [facility] Comment on above: Order Comment: Speci men Type: BLOOD SPECIMENOrdering Facility: [facility] Address: [address] [place] [address] Performed By: #### 2 4323-8 ####[facility] LABCLIA [id number] [address] [address] [place] CO2 [Moles/Vol] 22 mmol/L Normal 22-30 [facility] Comment on above: Order Comment: Speci men Type: BLOOD SPECIMENOrdering Facility: [facility] Address: [address] [place] [address] Performed By: #### 2 4323-8 ####[facility] LABCLIA [id number] [place] [id number] [place] Creatinine [Mass/Vol] 7.11 mg/dL High 0.73-1.22 [facility] Comment on above: Order Comment: Speci men Type: BLOOD SPECIMENOrdering Facility: [facility] Address: [address] [place] [address] Performed By: #### 2 4323-8 ####[facility] LABIA [id number] [place] [address] [place] Creatinine and Glomerular filtration rate.predicted panel (S/P/Bld) 7 mL/min/1.73m??? Low >=60 [facility] Comment on above: Order Comment: Speci men Type: BLOOD SPECIMENOrdering Facility: [facility] Address: [address] [place] [address] Result Comment: Tessa mated Glomerular Filtration Rate [...] actual GFR. Performed By: #### 2 4323-8 ####[facility] LABCLIA [id number] [facility] [address] [address] [place] Glucose [Mass/Vol] 55 mg/dL Low 74-99 [facility] Comment on above: Order Comment: Speci men Type: BLOOD SPECIMENOrdering Facility: [facility] Address: [address] [place] [address] Result Comment: The [place] [employer] (ADA) provides guidance for cutoff [...] Standards of Medical Care in Diabetes 2016, [place] [employer]. Diabetes Care. 2016.39(Suppl 1). Performed By: #### 2 4323-8 ####[facility] LABCLIA [id number] [place] [address] [place] Potassium [Moles/Vol] 5.3 mmol/L High 3.7-5.1 [facility] Comment on above: Order Comment: Speci men Type: BLOOD SPECIMENOrdering Facility: [facility] Address: [address] [place], [place] [address] Performed By: #### 2 4323-8 ####[facility] LABCLIA [id number] [address] [address] [place] Protein [Mass/Vol] 6.3 g/dL Normal 6.3-8.0 [facility] Comment on above: Order Comment: Speci men Type: BLOOD SPECIMENOrdering Facility: [facility] Address: [address] [place] [address] Performed By: #### 2 4323-8 ####[facility] LABCLIA [id number] [address] [address] [place] Sodium [Moles/Vol] 130 mmol/L Low 136-144 [facility] Comment on above: Order Comment: Speci men Type: BLOOD SPECIMENOrdering Facility: [facility] Address: [address] [place], [place] [address] Performed By: #### 2 4323-8 ####[facility] LABCLIA [id number] [place] [id number] [place] Urea nitrogen [Mass/Vol] 95 mg/dL High 9-24 [facility] Comment on above: Order Comment: Speci men Type: BLOOD SPECIMENOrdering Facility: [facility] Address: [address] [place] [address] Performed By: #### 2 4323-8 ####[facility] LABCLIA [id number] [place] [id number] [place] Albumin [Mass/Vol] 3.4 g/dL Low 3.9-4.9 [facility] Comment on above: Order Comment: Speci men Type: BLOOD SPECIMENOrdering Facility: [facility] Address: [address] [place] [address] Performed By: #### 2 4323-8, ####[facility] LABCLIA [id number] [place] [id number] [place] ALP [Catalytic activity/Vol] 63 U/L Normal 38-113 [facility] Comment on above: Order Comment: Speci men Type: BLOOD SPECIMENOrdering Facility: [facility] Address: [address] [place], [place] [address] Performed By: #### 2 4323-8, ####[facility] LABCLIA [id number] [place] [id number] [place] ALT [Catalytic activity/Vol] 36 U/L Normal 10-54 [facility] Comment on above: Order Comment: Speci men Type: BLOOD SPECIMENOrdering Facility: [facility] Address: [address] [place], [place] [address] Performed By: #### 2 4323-8, ####[facility] LABCLIA [id number] [place] [id number] [place] Anion gap [Moles/Vol] 19 mmol/L High 8-15 [facility] Comment on above: Order Comment: Speci men Type: BLOOD SPECIMENOrdering Facility: [facility] Address: [address] [place] [address] Performed By: #### 2 4323-8, ####[facility] LABCLIA [id number] [place] [address] [place] AST [Catalytic activity/Vol] 20 U/L Normal 14-40 [facility] Comment on above: Order Comment: Speci men Type: BLOOD SPECIMENOrdering Facility: [facility] Address: [address] [place] [address] Performed By: #### 2 4323-8, ####[facility] LABCLIA [id number] [place] [address] [place] Bilirubin [Mass/Vol] 0.2 mg/dL Normal 0.2-1.3 [facility] Comment on above: Order Comment: Speci men Type: BLOOD SPECIMENOrdering Facility: [facility] Address: [address] [place] [address] Performed By: #### 2 4323-8, ####[facility] LABCLIA [id number] [place] [id number] [place] Calcium [Mass/Vol] 8.9 mg/dL Normal 8.5-10.2 [facility] Comment on above: Order Comment: Speci men Type: BLOOD SPECIMENOrdering Facility: [facility] Address: [address] [place] [address] Performed By: #### 2 4323-8, ####[facility] LABCLIA [id number] [place] [id number] [place] Chloride [Moles/Vol] 88 mmol/L Low 98-107 [facility] Comment on above: Order Comment: Speci men Type: BLOOD SPECIMENOrdering Facility: [facility] Address: [address] [place] [address] Performed By: #### 2 4323-8, ####[facility] LABCLIA [id number] [address] [address] [place] CO2 [Moles/Vol] 22 mmol/L Normal 22-30 [facility] Comment on above: Order Comment: Speci men Type: BLOOD SPECIMENOrdering Facility: [facility] Address: [address] [place] [address] Performed By: #### 2 4323-8, ####[facility] LABIA [id number] [place] [address] [place] Creatinine [Mass/Vol] 7.11 mg/dL High 0.73-1.22 [facility] Comment on above: Order Comment: Speci men Type: BLOOD SPECIMENOrdering Facility: [facility] Address: [address] [place] [address] Performed By: #### 2 4323-8, ####[facility] LABIA [id number] [address] [place] Creatinine and Glomerular filtration rate.predicted panel (S/P/Bld) 7 mL/min/1.73m??? Low >=60 [facility] Comment on above: Order Comment: Speci men Type: BLOOD SPECIMENOrdering Facility: [facility] Address: [address] [place] [address] Result Comment: Tessa mated Glomerular Filtration Rate [...] actual GFR. Performed By: #### 2 4323-8, ####[facility] LABCLIA [id number] [address] [address] [place] Glucose [Mass/Vol] 133 mg/dL High 74-99 [facility] Comment on above: Order Comment: Speci men Type: BLOOD SPECIMENOrdering Facility: [facility] Address: [address] [place] [address] Result Comment: The [place] [employer] (ADA) provides guidance for cutoff [...] Standards of Medical Care in Diabetes 2016, [place] [employer]. Diabetes Care. 2016.39(Suppl 1). Performed By: #### 2 4323-8, ####[facility] LABIA [id number] [address] [address] [place] Potassium [Moles/Vol] 5.6 mmol/L High 3.7-5.1 [facility] Comment on above: Order Comment: Speci men Type: BLOOD SPECIMENOrdering Facility: [facility] Address: [address] [place] [place] [address] Performed By: #### 2 4328, ####[facility] LABIA [id number] [address] [address] [place] Protein [Mass/Vol] 6.3 g/dL Normal 6.3-8.0 [facility] Comment on above: Order Comment: Speci men Type: BLOOD SPECIMENOrdering Facility: [facility] Address: [address] [place] [place] [address] Performed By: #### 2 4322-12, ####[facility] LABCLIA [id number] [address] [address] [place] Urea nitrogen [Mass/Vol] 94 mg/dL High 9-24 [facility] Comment on above: Order Comment: Speci men Type: BLOOD SPECIMENOrdering Facility: [facility] Address: [address] [place], [place] [address] Performed By: #### 2 4323-8, ####[facility] LABIA [id number] [address] [address] [place] Magnesium SerPl-mCncon 11-26 Magnesium [Mass/Vol] 2.6 mg/dL High 1.7-2.3 [facility] Comment on above: Order Comment: Speci men Type: BLOOD SPECIMENOrdering Facility: [facility] Address: [address] [place] [address] Performed By: #### 2 4328, ####[facility] LABIA [id number] [place] [id number] [place] THERAPY NTon 11-26-2024 THERAPY NT Normal [facility] Urea nitrogen post dialysis [Mass/Vol]on 11-26-2024 UREA REDUCTION RATIO WITH BUNPR 69 % Normal [facility] Comment on above: Order Comment: Speci men Type: BLOOD SPECIMENOrdering Facility: [facility] Address: [address] [place], [place] [address] Performed By: #### 1 1064-3 ####[facility] LABIA [id number] [address] [address] [place] XR CHEST 1V FRONTAL PORTon 0 11-26-2024 XR CHEST 1V FRONTAL PORT Normal [facility] ALLIED HEALTHon 11-25-2024 ALLIED HEALTH HNO ID: [id number] Author: ISRAEL MOODY Chaplain Service: Process Group Author Type: Expanded Function Dental Assistant Type: Allied Health Filed: 11/25/2024 16:42 Note Text: The patient was anointed. Normal [facility] ARTERIAL BLOOD GASESon 11-25 Base excess Calc (Bld) [Moles/Vol] 1 mmol/L Normal 0-2 [facility] Comment on above: Order Comment: Speci men Type: ARTERIAL BLOOD SPECIMENOrdering Facility: [facility] Address: [address] [place] [address] Performed By: #### A LLBG ####[facility] LABCLIA [id number] [place] [address] [place] Body temperature 97.7 [degF] Normal [facility] Comment on above: Order Comment: Speci men Type: ARTERIAL BLOOD SPECIMENOrdering Facility: [facility] Address: [address] [place] [address] Performed By: #### A LLBG ####[facility] LABIA [id number] [place] [address] [place] Calcium.ionized (Bld) [Mass/Vol] 1.09 mmol/L Normal 1.08-1.30 [facility] Comment on above: Order Comment: Speci men Type: ARTERIAL BLOOD SPECIMENOrdering Facility: [facility] Address: [address] [place] [address] Performed By: #### A LLBG ####[facility] LABIA [id number] [place] [address] [place] Calcium.ionized adjusted to pH 7.4 (BldA) [Moles/Vol] 1.08 mmol/L Normal 1.08-1.30 [facility] Comment on above: Order Comment: Speci men Type: ARTERIAL BLOOD SPECIMENOrdering Facility: [facility] Address: [address] [place] [address] Performed By: #### A LLBG ####[facility] LABIA [id number] [place] [address] [place] Carboxyhemoglobin (BldA) [Mass fraction] 0.3 % Normal 0.0-2.0 [facility] Comment on above: Order Comment: Speci men Type: ARTERIAL BLOOD SPECIMENOrdering Facility: [facility] Address: [address] [place] [address] Result Comment: Carb oxyhemoglobin Reference Range for Smokers: 2.0-8.0% Performed By: #### A LLBG ####[facility] LABCLIA [id number] [place] [address] [place] CO2 (Bld) [Partial pressure] 43 mm Hg Normal 36-46 [facility] Comment on above: Order Comment: Speci men Type: ARTERIAL BLOOD SPECIMENOrdering Facility: [facility] Address: [address] [place] [address] Performed By: #### A LLBG ####[facility] LABCLIA [id number] [place] [address] [place] CO2 adjusted to patient's actual temperature (Bld) [Partial pressure] 42 mmHg Normal 36-46 [facility] Comment on above: Order Comment: Speci men Type: ARTERIAL BLOOD SPECIMENOrdering Facility: [facility] Address: [address] [place] [address] Performed By: #### A LLBG ####[facility] LABCLIA [id number] [place] [address] [place] Glucose [Mass/Vol] 92 mg/dL Normal 60-105 [facility] Comment on above: Order Comment: Speci men Type: ARTERIAL BLOOD SPECIMENOrdering Facility: [facility] Address: [address] [place] [address] Performed By: #### A LLBG ####[facility] LABCLIA [id number] [place] [address] [place] HCO3 (Bld) [Moles/Vol] 25 mmol/L Normal 22-26 [facility] Comment on above: Order Comment: Speci men Type: ARTERIAL BLOOD SPECIMENOrdering Facility: [facility] Address: [address] [place] [address] Performed By: #### A LLBG ####[facility] LABCLIA [id number] [place] [address] [place] Hematocrit (Bld) [Volume fraction] 32.9 % Low 39.0-51.0 [facility] Comment on above: Order Comment: Speci men Type: ARTERIAL BLOOD SPECIMENOrdering Facility: [facility] Address: [address] [place] [address] Performed By: #### A LLBG ####[facility] LABCLIA [id number] [place] [address] [place] Hemoglobin (Bld) [Mass/Vol] 10.6 g/dL Low 13.0-17.0 [facility] Comment on above: Order Comment: Speci men Type: ARTERIAL BLOOD SPECIMENOrdering Facility: [facility] Address: [address] [place] [address] Performed By: #### A LLBG ####[facility] LABCLIA [id number] [place] [address] [place] Lactate [Moles/Vol] 1.0 mmol/L Normal 0.5-2.2 [facility] Comment on above: Order Comment: Speci men Type: ARTERIAL BLOOD SPECIMENOrdering Facility: [facility] Address: [address] [place] [address] Performed By: #### A LLBG ####[facility] LABCLIA [id number] [place] [address] [place] LITERS 1 Liters/min Normal [facility] Comment on above: Order Comment: Speci men Type: ARTERIAL BLOOD SPECIMENOrdering Facility: [facility] Address: [address] [place] [address] Performed By: #### A LLBG ####[facility] LABCLIA [id number] [place] [address] [place] Methemoglobin (Bld) [Mass fraction] 0.3 % Normal 0.0-1.5 [facility] Comment on above: Order Comment: Speci men Type: ARTERIAL BLOOD SPECIMENOrdering Facility: [facility] Address: [address] [place] [address] Performed By: #### A LLBG ####[facility] LABCLIA [id number] [place] [id number] [facility] [place] O2 THERAPY NC = Nasal Cannula Normal [facility] Comment on above: Order Comment: Speci men Type: ARTERIAL BLOOD SPECIMENOrdering Facility: [facility] Address: [address] [place] [address] Performed By: #### A LLBG ####[facility] LABCLIA [id number] [place] [id number] [facility] [place] Oxygen (Bld) [Partial pressure] 147 mm Hg High 85-95 [facility] Comment on above: Order Comment: Speci men Type: ARTERIAL BLOOD SPECIMENOrdering Facility: [facility] Address: [address] [place] [address] Performed By: #### A LLBG ####[facility] LABCLIA [id number] [address] [place] Oxygen adjusted to patient's actual temperature (Bld) [Partial pressure] 144 mmHg High 85-95 [facility] Comment on above: Order Comment: Speci men Type: ARTERIAL BLOOD SPECIMENOrdering Facility: [facility] Address: [address] [place] [address] Performed By: #### A LLBG ####[facility] LABCLIA [id number] [place] [id number] [place] Oxyhemoglobin (BldA) [Mass fraction] 97 % Normal 95-98 [facility] Comment on above: Order Comment: Speci men Type: ARTERIAL BLOOD SPECIMENOrdering Facility: [facility] Address: [address] [place], [place] [address] Performed By: #### A LLBG ####[facility] LABCLIA [id number] [address] [address] [place] pH (Bld) 7.39 [pH] Normal 7.35-7.45 [facility] Comment on above: Order Comment: Speci men Type: ARTERIAL BLOOD SPECIMENOrdering Facility: [facility] Address: [address] [place] [address] Performed By: #### A LLBG ####[facility] LABCLIA [id number] [place] [address] [place] pH adjusted to patient's actual temperature (Bld) 7.39 Normal 7.35-7.45 [facility] Comment on above: Order Comment: Speci men Type: ARTERIAL BLOOD SPECIMENOrdering Facility: [facility] Address: [address] [place] [address] Performed By: #### A LLBG ####[facility] LABCLIA [id number] [place] [address] [place] Potassium [Moles/Vol] 5.3 mmol/L High 3.5-5.0 [facility] Comment on above: Order Comment: Speci men Type: ARTERIAL BLOOD SPECIMENOrdering Facility: [facility] Address: [address] [place] [address] Performed By: #### A LLBG ####[facility] LABIA [id number] [place] [id number] [place] Sodium [Moles/Vol] 129 mmol/L Low 136-144 [facility] Comment on above: Order Comment: Speci men Type: ARTERIAL BLOOD SPECIMENOrdering Facility: [facility] Address: [address] [place] [address] Performed By: #### A LLBG ####[facility] LABCLIA [id number] [place] [id number] [place] Base excess Calc (Bld) [Moles/Vol] 1 mmol/L Normal 0-2 [facility] Comment on above: Order Comment: Speci men Type: ARTERIAL BLOOD SPECIMENOrdering Facility: [facility] Address: [address] [place] [address] Performed By: #### A LLBG ####[facility] LABIA [id number] [place] [address] [place] Body temperature 97.7 [degF] Normal [facility] Comment on above: Order Comment: Speci men Type: ARTERIAL BLOOD SPECIMENOrdering Facility: [facility] Address: [address] [place] [address] Performed By: #### A LLBG ####[facility] LABIA [id number] [place] [address] [place] Calcium.ionized (Bld) [Mass/Vol] 1.08 mmol/L Normal 1.08-1.30 [facility] Comment on above: Order Comment: Speci men Type: ARTERIAL BLOOD SPECIMENOrdering Facility: [facility] Address: [address] [place] [address] Performed By: #### A LLBG ####[facility] [id number] [place] [address] [place] Calcium.ionized adjusted to pH 7.4 (BldA) [Moles/Vol] 1.07 mmol/L Low 1.08-1.30 [facility] Comment on above: Order Comment: Speci men Type: ARTERIAL BLOOD SPECIMENOrdering Facility: [facility] Address: [address] [place] [address] Performed By: #### A LLBG ####[facility] LABIA [id number] [place] [address] [place] Carboxyhemoglobin (BldA) [Mass fraction] 0.3 % Normal 0.0-2.0 [facility] Comment on above: Order Comment: Speci men Type: ARTERIAL BLOOD SPECIMENOrdering Facility: [facility] Address: [address] [place] [address] Result Comment: Carb oxyhemoglobin Reference Range for Smokers: 2.0-8.0% Performed By: #### A LLBG ####[facility] LABCLIA [id number] [place] [address] [place] CO2 (Bld) [Partial pressure] 44 mm Hg Normal 36-46 [facility] Comment on above: Order Comment: Speci men Type: ARTERIAL BLOOD SPECIMENOrdering Facility: [facility] Address: [address] [place] [address] Performed By: #### A LLBG ####[facility] LABCLIA [id number] [address] [place] CO2 adjusted to patient's actual temperature (Bld) [Partial pressure] 43 mmHg Normal 36-46 [facility] Comment on above: Order Comment: Speci men Type: ARTERIAL BLOOD SPECIMENOrdering Facility: [facility] Address: [address] [place] [address] Performed By: #### A LLBG ####[facility] LABCLIA [id number] [place] [address] [place] Glucose [Mass/Vol] 157 mg/dL High 60-105 [facility] Comment on above: Order Comment: Speci men Type: ARTERIAL BLOOD SPECIMENOrdering Facility: [facility] Address: [address] [place] [address] Performed By: #### A LLBG ####[facility] LABCLIA [id number] [place] [address] [place] HCO3 (Bld) [Moles/Vol] 26 mmol/L Normal 22-26 [facility] Comment on above: Order Comment: Speci men Type: ARTERIAL BLOOD SPECIMENOrdering Facility: [facility] Address: [address] [place] [address] Performed By: #### A LLBG ####[facility] LABCLIA [id number] [address] [address] [place] Hematocrit (Bld) [Volume fraction] 32.7 % Low 39.0-51.0 [facility] Comment on above: Order Comment: Speci men Type: ARTERIAL BLOOD SPECIMENOrdering Facility: [facility] Address: [address] [place] [address] Performed By: #### A LLBG ####[facility] LABCLIA [id number] [place] [address] [place] Hemoglobin (Bld) [Mass/Vol] 10.6 g/dL Low 13.0-17.0 [facility] Comment on above: Order Comment: Speci men Type: ARTERIAL BLOOD SPECIMENOrdering Facility: [facility] Address: [address] [place] [address] Performed By: #### A LLBG ####[facility] LABCLIA [id number] [place] [address] [place] Lactate [Moles/Vol] 1.2 mmol/L Normal 0.5-2.2 [facility] Comment on above: Order Comment: Speci men Type: ARTERIAL BLOOD SPECIMENOrdering Facility: [facility] Address: [address] [place] [address] Performed By: #### A LLBG ####[facility] LABCLIA [id number] [place] [address] [place] Methemoglobin (Bld) [Mass fraction] 0.2 % Normal 0.0-1.5 [facility] Comment on above: Order Comment: Speci men Type: ARTERIAL BLOOD SPECIMENOrdering Facility: [facility] Address: [address] [place] [address] Performed By: #### A LLBG ####[facility] LABCLIA [id number] [place] [address] [place] O2 THERAPY RA=Room Air Normal [facility] Comment on above: Order Comment: Speci men Type: ARTERIAL BLOOD SPECIMENOrdering Facility: [facility] Address: [address] [place] [address] Performed By: #### A LLBG ####[facility] LABCLIA [id number] [address] [address] [place] Oxygen (Bld) [Partial pressure] 136 mm Hg High 85-95 [facility] Comment on above: Order Comment: Speci men Type: ARTERIAL BLOOD SPECIMENOrdering Facility: [facility] Address: [address] [place] [address] Performed By: #### A LLBG ####[facility] LABCLIA [id number] [address] [address] [place] Oxygen adjusted to patient's actual temperature (Bld) [Partial pressure] 134 mmHg High 85-95 [facility] Comment on above: Order Comment: Speci men Type: ARTERIAL BLOOD SPECIMENOrdering Facility: [facility] Address: [address] [place] [address] Performed By: #### A LLBG ####[facility] LABCLIA [id number] [place] [id number] [place] Oxyhemoglobin (BldA) [Mass fraction] 97 % Normal 95-98 [facility] Comment on above: Order Comment: Speci men Type: ARTERIAL BLOOD SPECIMENOrdering Facility: [facility] Address: [address] [place] [address] Performed By: #### A LLBG ####[facility] LABCLIA [id number] [place] [id number] [place] pH (Bld) 7.39 [pH] Normal 7.35-7.45 [facility] Comment on above: Order Comment: Speci men Type: ARTERIAL BLOOD SPECIMENOrdering Facility: [facility] Address: [address] [place] [address] Performed By: #### A LLBG ####[facility] LABCLIA [id number] [place] [id number] [place] pH adjusted to patient's actual temperature (Bld) 7.39 Normal 7.35-7.45 [facility] Comment on above: Order Comment: Speci men Type: ARTERIAL BLOOD SPECIMENOrdering Facility: [facility] Address: [address] [place] [address] Performed By: #### A LLBG ####[facility] LABCLIA [id number] [place] [address] [place] PO2 / FIO2 RATIO 648 mmHg Normal >300 [facility] Comment on above: Order Comment: Speci men Type: ARTERIAL BLOOD SPECIMENOrdering Facility: [facility] Address: [address] [place] [address] Performed By: #### A LLBG ####[facility] LABCLIA [id number] [place] [address] [place] Potassium [Moles/Vol] 5.3 mmol/L High 3.5-5.0 [facility] Comment on above: Order Comment: Speci men Type: ARTERIAL BLOOD SPECIMENOrdering Facility: [facility] Address: [address] [place] [address] Performed By: #### A LLBG ####[facility] LABCLIA [id number] [place] [address] [place] Sodium [Moles/Vol] 129 mmol/L Low 136-144 [facility] Comment on above: Order Comment: Speci men Type: ARTERIAL BLOOD SPECIMENOrdering Facility: [facility] Address: [address] [place] [address] Performed By: #### A LLBG ####[facility] LABCLIA [id number] [place] [id number] [place] Base excess Calc (Bld) [Moles/Vol] 1 mmol/L Normal 0-2 [facility] Comment on above: Order Comment: Speci men Type: ARTERIAL BLOOD SPECIMENOrdering Facility: [facility] Address: [address] [place] [address] Performed By: #### A LLBG ####[facility] LABCLIA [id number] [place] [address] [place] Body temperature 97.88 [degF] Normal [facility] Comment on above: Order Comment: Speci men Type: ARTERIAL BLOOD SPECIMENOrdering Facility: [facility] Address: [address] [place] [address] Performed By: #### A LLBG ####[facility] LABCLIA [id number] [place] [address] [place] Calcium.ionized (Bld) [Mass/Vol] 1.12 mmol/L Normal 1.08-1.30 [facility] Comment on above: Order Comment: Speci men Type: ARTERIAL BLOOD SPECIMENOrdering Facility: [facility] Address: [address] [place] [address] Performed By: #### A LLBG ####[facility] LABIA [id number] [place] [address] [place] Calcium.ionized adjusted to pH 7.4 (BldA) [Moles/Vol] 1.11 mmol/L Normal 1.08-1.30 [facility] Comment on above: Order Comment: Speci men Type: ARTERIAL BLOOD SPECIMENOrdering Facility: [facility] Address: [address] [place] [address] Performed By: #### A LLBG ####[facility] LABIA [id number] [place] [address] [place] Carboxyhemoglobin (BldA) [Mass fraction] 1.1 % Normal 0.0-2.0 [facility] Comment on above: Order Comment: Speci men Type: ARTERIAL BLOOD SPECIMENOrdering Facility: [facility] Address: [address] [place] [address] Result Comment: Carb oxyhemoglobin Reference Range for Smokers: 2.0-8.0% Performed By: #### A LLBG ####[facility] LABCLIA [id number] [address] [address] [place] CO2 (Bld) [Partial pressure] 43 mm Hg Normal 36-46 [facility] Comment on above: Order Comment: Lesvia men Type: ARTERIAL BLOOD SPECIMENOrdering Facility: [facility] Address: [address] [place] [address] Performed By: #### A LLBG ####[facility] LABCLIA [id number] [address] [place] CO2 adjusted to patient's actual temperature (Bld) [Partial pressure] 42 mmHg Normal 36-46 [facility] Comment on above: Order Comment: Lesvia men Type: ARTERIAL BLOOD SPECIMENOrdering Facility: [facility] Address: [address] [place] [address] Performed By: #### A LLBG ####[facility] LABIA [id number] [place] [address] [place] Glucose [Mass/Vol] 175 mg/dL High 74-99 [facility] Comment on above: Order Comment: Ruddyi men Type: ARTERIAL BLOOD SPECIMENOrdering Facility: [facility] Address: [address] [place] [address] Performed By: #### A LLBG ####[facility] LABIA [id number] [address] [place] Order Comment: Ruddyi men Type: BLOOD SPECIMENOrdering Facility: [facility] Address: [address] [place] [address] Result Comment: The [place] [employer] (ADA) provides guidance for cutoff [...] Standards of Medical Care in Diabetes 2016, [place] [employer]. Diabetes Care. 2016.39(Suppl 1). Performed By: #### 2 4321-2 ####[facility] LABCLIA [id number] [place] [address] [place] HCO3 (Bld) [Moles/Vol] 25 mmol/L Normal 22-26 [facility] Comment on above: Order Comment: Speci men Type: ARTERIAL BLOOD SPECIMENOrdering Facility: [facility] Address: [address] [place] [address] Performed By: #### A LLBG ####[facility] LABIA [id number] [place] [address] [place] Hematocrit (Bld) [Volume fraction] 33.9 % Low 39.0-51.0 [facility] Comment on above: Order Comment: Speci men Type: ARTERIAL BLOOD SPECIMENOrdering Facility: [facility] Address: [address] [place] [address] Performed By: #### A LLBG ####[facility] LABIA [id number] [place] [address] [place] Hemoglobin (Bld) [Mass/Vol] 11.0 g/dL Low 13.0-17.0 [facility] Comment on above: Order Comment: Speci men Type: ARTERIAL BLOOD SPECIMENOrdering Facility: [facility] Address: [address] [place] [address] Performed By: #### A LLBG ####[facility] LABIA [id number] [place] [address] [place] Lactate [Moles/Vol] 1.0 mmol/L Normal 0.5-2.2 [facility] Comment on above: Order Comment: Speci men Type: ARTERIAL BLOOD SPECIMENOrdering Facility: [facility] Address: [address] [place] [address] Performed By: #### A LLBG ####[facility] LABCLIA [id number] [address] [place] [address] [place] Methemoglobin (Bld) [Mass fraction] 1.0 % Normal 0.0-1.5 [facility] Comment on above: Order Comment: Speci men Type: ARTERIAL BLOOD SPECIMENOrdering Facility: [facility] Address: [address] [place] [address] Performed By: #### A LLBG ####[facility] LABCLIA [id number] [address] [place] [address] [place] O2 THERAPY RA=Room Air Normal [facility] Comment on above: Order Comment: Speci men Type: ARTERIAL BLOOD SPECIMENOrdering Facility: [facility] Address: [address] [place] [address] Performed By: #### A LLBG ####[facility] LABCLIA [id number] [address] [place] [address] [place] Oxygen (Bld) [Partial pressure] 169 mm Hg High 85-95 [facility] Comment on above: Order Comment: Speci men Type: ARTERIAL BLOOD SPECIMENOrdering Facility: [facility] Address: [address] [place], [place] [id number] Performed By: #### A LLBG ####[facility] LABCLIA [id number] [address] [place] [address] [place] Oxygen adjusted to patient's actual temperature (Bld) [Partial pressure] 167 mmHg High 85-95 [facility] Comment on above: Order Comment: Speci men Type: ARTERIAL BLOOD SPECIMENOrdering Facility: [facility] Address: [address] [place], [place] [id number] Performed By: #### A LLBG ####[facility] LABCLIA [id number] [facility] [address] [place] [address] [place] Oxyhemoglobin (BldA) [Mass fraction] 97 % Normal 95-98 [facility] Comment on above: Order Comment: Speci men Type: ARTERIAL BLOOD SPECIMENOrdering Facility: [facility] Address: [address] [place] [address] Performed By: #### A LLBG ####[facility] LABCLIA [id number] [place] [address] [place] pH (Bld) 7.39 [pH] Normal 7.35-7.45 [facility] Comment on above: Order Comment: Speci men Type: ARTERIAL BLOOD SPECIMENOrdering Facility: [facility] Address: [address] [place] [address] Performed By: #### A LLBG ####[facility] LABCLIA [id number] [place] [address] [place] pH adjusted to patient's actual temperature (Bld) 7.39 Normal 7.35-7.45 [facility] Comment on above: Order Comment: Speci men Type: ARTERIAL BLOOD SPECIMENOrdering Facility: [facility] Address: [address] [place] [address] Performed By: #### A LLBG ####[facility] LABCLIA [id number] [place] [address] [place] PO2 / FIO2 RATIO 805 mmHg Normal >300 [facility] Comment on above: Order Comment: Speci men Type: ARTERIAL BLOOD SPECIMENOrdering Facility: [facility] Address: [address] [place] [address] Performed By: #### A LLBG ####[facility] LABCLIA [id number] [place] [id number] [place] Potassium [Moles/Vol] 5.3 mmol/L High 3.5-5.0 [facility] Comment on above: Order Comment: Speci men Type: ARTERIAL BLOOD SPECIMENOrdering Facility: [facility] Address: [address] [place] [address] Performed By: #### A LLBG ####[facility] LABCLIA [id number] [place] [id number] [place] Sodium [Moles/Vol] 131 mmol/L Low 136-144 [facility] Comment on above: Order Comment: Speci men Type: ARTERIAL BLOOD SPECIMENOrdering Facility: [facility] Address: [address] [place] [address] Performed By: #### A LLBG ####[facility] LABCLIA [id number] [place] [address] [place] Base excess Calc (Bld) [Moles/Vol] 0 mmol/L Normal 0-2 [facility] Comment on above: Order Comment: Speci men Type: ARTERIAL BLOOD SPECIMENOrdering Facility: [facility] Address: [address] [place] [address] Performed By: #### A LLBG ####[facility] LABCLIA [id number] [place] [address] [place] Body temperature 97.52 [degF] Normal [facility] Comment on above: Order Comment: Speci men Type: ARTERIAL BLOOD SPECIMENOrdering Facility: [facility] Address: [address] [place] [address] Performed By: #### A LLBG ####[facility] LABCLIA [id number] [place] [address] [place] Calcium.ionized (Bld) [Mass/Vol] 1.10 mmol/L Normal 1.08-1.30 [facility] Comment on above: Order Comment: Speci men Type: ARTERIAL BLOOD SPECIMENOrdering Facility: [facility] Address: [address] [place] [address] Performed By: #### A LLBG ####[facility] LABCLIA [id number] [place] [address] [place] Calcium.ionized adjusted to pH 7.4 (BldA) [Moles/Vol] 1.09 mmol/L Normal 1.08-1.30 [facility] Comment on above: Order Comment: Speci men Type: ARTERIAL BLOOD SPECIMENOrdering Facility: [facility] Address: [address] [address] Performed By: #### A LLBG ####[facility] LABCLIA [id number] [address] [address] [place] Carboxyhemoglobin (BldA) [Mass fraction] 1.3 % Normal 0.0-2.0 [facility] Comment on above: Order Comment: Speci men Type: ARTERIAL BLOOD SPECIMENOrdering Facility: [facility] Address: [address] [place], [place] [id number] Result Comment: Carb oxyhemoglobin Reference Range for Smokers: 2.0-8.0% Performed By: #### A LLBG ####[facility] LABCLIA [id number] [place] [id number] [place] CO2 (Bld) [Partial pressure] 45 mm Hg Normal 36-46 [facility] Comment on above: Order Comment: Speci men Type: ARTERIAL BLOOD SPECIMENOrdering Facility: [facility] Address: [address] [place] [address] Performed By: #### A LLBG ####[facility] LABCLIA [id number] [place] [address] [place] CO2 adjusted to patient's actual temperature (Bld) [Partial pressure] 43 mmHg Normal 36-46 [facility] Comment on above: Order Comment: Speci men Type: ARTERIAL BLOOD SPECIMENOrdering Facility: [facility] Address: [address] [place] [address] Performed By: #### A LLBG ####[facility] LABCLIA [id number] [place] [id number] [place] Glucose [Mass/Vol] 179 mg/dL High 60-105 [facility] Comment on above: Order Comment: Speci men Type: ARTERIAL BLOOD SPECIMENOrdering Facility: [facility] Address: [address] [place] [address] Performed By: #### A LLBG ####[facility] LABCLIA [id number] [place] [address] [place] HCO3 (Bld) [Moles/Vol] 25 mmol/L Normal 22-26 [facility] Comment on above: Order Comment: Speci men Type: ARTERIAL BLOOD SPECIMENOrdering Facility: [facility] Address: [address] [place] [address] Performed By: #### A LLBG ####[facility] LABCLIA [id number] [place] [address] [place] Hematocrit (Bld) [Volume fraction] 35.9 % Low 39.0-51.0 [facility] Comment on above: Order Comment: Speci men Type: ARTERIAL BLOOD SPECIMENOrdering Facility: [facility] Address: [address] [place] [address] Performed By: #### A LLBG ####[facility] LABCLIA [id number] [place] [address] [place] Hemoglobin (Bld) [Mass/Vol] 11.6 g/dL Low 13.0-17.0 [facility] Comment on above: Order Comment: Speci men Type: ARTERIAL BLOOD SPECIMENOrdering Facility: [facility] Address: [address] [place] [address] Performed By: #### A LLBG ####[facility] LABCLIA [id number] [place] [address] [place] Lactate [Moles/Vol] 1.3 mmol/L Normal 0.5-2.2 [facility] Comment on above: Order Comment: Speci men Type: ARTERIAL BLOOD SPECIMENOrdering Facility: [facility] Address: [address] [place] [address] Performed By: #### A LLBG ####[facility] LABCLIA [id number] [place] [address] [place] Methemoglobin (Bld) [Mass fraction] 1.4 % Normal 0.0-1.5 [facility] Comment on above: Order Comment: Speci men Type: ARTERIAL BLOOD SPECIMENOrdering Facility: [facility] Address: [address] [place] [address] Performed By: #### A LLBG ####[facility] LABCLIA [id number] [place] [id number] [place] O2 THERAPY RA=Room Air Normal [facility] Comment on above: Order Comment: Speci men Type: ARTERIAL BLOOD SPECIMENOrdering Facility: [facility] Address: [address] [place] [address] Performed By: #### A LLBG ####[facility] LABCLIA [id number] [place] [id number] [place] Oxygen (Bld) [Partial pressure] 95 mm Hg Normal 85-95 [facility] Comment on above: Order Comment: Speci men Type: ARTERIAL BLOOD SPECIMENOrdering Facility: [facility] Address: [address] [place] [address] Performed By: #### A LLBG ####[facility] LABCLIA [id number] [place] [address] [place] Oxygen adjusted to patient's actual temperature (Bld) [Partial pressure] 92 mmHg Normal 85-95 [facility] Comment on above: Order Comment: Speci men Type: ARTERIAL BLOOD SPECIMENOrdering Facility: [facility] Address: [address] [place] [address] Performed By: #### A LLBG ####[facility] LABCLIA [id number] [place] [id number] [place] Oxyhemoglobin (BldA) [Mass fraction] 94 % Low 95-98 [facility] Comment on above: Order Comment: Speci men Type: ARTERIAL BLOOD SPECIMENOrdering Facility: [facility] Address: [address] [place], [place] [address] Performed By: #### A LLBG ####[facility] LABCLIA [id number] [address] [address] [place] pH (Bld) 7.37 [pH] Normal 7.35-7.45 [facility] Comment on above: Order Comment: Speci men Type: ARTERIAL BLOOD SPECIMENOrdering Facility: [facility] Address: [address] [place] [address] Performed By: #### A LLBG ####[facility] LABCLIA [id number] [place] [address] [place] pH adjusted to patient's actual temperature (Bld) 7.38 Normal 7.35-7.45 [facility] Comment on above: Order Comment: Speci men Type: ARTERIAL BLOOD SPECIMENOrdering Facility: [facility] Address: [address] [place] [address] Performed By: #### A LLBG ####[facility] LABCLIA [id number] [place] [address] [place] PO2 / FIO2 RATIO 452 mmHg Normal >300 [facility] Comment on above: Order Comment: Speci men Type: ARTERIAL BLOOD SPECIMENOrdering Facility: [facility] Address: [address] [place] [address] Performed By: #### A LLBG ####[facility] LABCLIA [id number] [place] [address] [place] Potassium [Moles/Vol] 5.3 mmol/L High 3.5-5.0 [facility] Comment on above: Order Comment: Speci men Type: ARTERIAL BLOOD SPECIMENOrdering Facility: [facility] Address: [address] [place] [address] Performed By: #### A LLBG ####[facility] LABCLIA [id number] [place] [id number] [place] Sodium [Moles/Vol] 130 mmol/L Low 136-144 [facility] Comment on above: Order Comment: Speci men Type: ARTERIAL BLOOD SPECIMENOrdering Facility: [facility] Address: [address] [place] [address] Performed By: #### A LLBG ####[facility] LABIA [id number] [place] [address] [place] Base excess Calc (Bld) [Moles/Vol] 2 mmol/L Normal 0-2 [facility] Comment on above: Order Comment: Speci men Type: ARTERIAL BLOOD SPECIMENOrdering Facility: [facility] Address: [address] [place] [address] Performed By: #### A LLBG ####[facility] LABIA [id number] [place] [address] [place] Body temperature 98.6 [degF] Normal [facility] Comment on above: Order Comment: Speci men Type: ARTERIAL BLOOD SPECIMENOrdering Facility: [facility] Address: [address] [place] [address] Performed By: #### A LLBG ####[facility] LABIA [id number] [place] [address] [place] Calcium.ionized (Bld) [Mass/Vol] 1.10 mmol/L Normal 1.08-1.30 [facility] Comment on above: Order Comment: Speci men Type: ARTERIAL BLOOD SPECIMENOrdering Facility: [facility] Address: [address] [place] [address] Performed By: #### A LLBG ####[facility] LABCLIA [id number] [place] [address] [place] Calcium.ionized adjusted to pH 7.4 (BldA) [Moles/Vol] 1.08 mmol/L Normal 1.08-1.30 [facility] Comment on above: Order Comment: Speci men Type: ARTERIAL BLOOD SPECIMENOrdering Facility: [facility] Address: [address] [place] [address] Performed By: #### A LLBG ####[facility] LABCLIA [id number] [place] [address] [place] Carboxyhemoglobin (BldA) [Mass fraction] 1.4 % Normal 0.0-2.0 [facility] Comment on above: Order Comment: Speci men Type: ARTERIAL BLOOD SPECIMENOrdering Facility: [facility] Address: [address] [place] [address] Result Comment: Carb oxyhemoglobin Reference Range for Smokers: 2.0-8.0% Performed By: #### A LLBG ####[facility] LABCLIA [id number] [place] [address] [place] CO2 (Bld) [Partial pressure] 47 mm Hg High 36-46 [facility] Comment on above: Order Comment: Speci men Type: ARTERIAL BLOOD SPECIMENOrdering Facility: [facility] Address: [address] [place] [address] Performed By: #### A LLBG ####[facility] LABCLIA [id number] [place] [address] [place] Glucose [Mass/Vol] 228 mg/dL High 60-105 [facility] Comment on above: Order Comment: Speci men Type: ARTERIAL BLOOD SPECIMENOrdering Facility: [facility] Address: [address] [place] [address] Performed By: #### A LLBG ####[facility] LABCLIA [id number] [place] [address] [place] HCO3 (Bld) [Moles/Vol] 27 mmol/L High 22-26 [facility] Comment on above: Order Comment: Speci men Type: ARTERIAL BLOOD SPECIMENOrdering Facility: [facility] Address: [address] [place] [address] Performed By: #### A LLBG ####[facility] LABCLIA [id number] [place] [address] [place] Hematocrit (Bld) [Volume fraction] 34.4 % Low 39.0-51.0 [facility] Comment on above: Order Comment: Speci men Type: ARTERIAL BLOOD SPECIMENOrdering Facility: [facility] Address: [address] [place] [address] Performed By: #### A LLBG ####[facility] LABIA [id number] [place] [address] [place] Hemoglobin (Bld) [Mass/Vol] 11.2 g/dL Low 13.0-17.0 [facility] Comment on above: Order Comment: Speci men Type: ARTERIAL BLOOD SPECIMENOrdering Facility: [facility] Address: [address] [place] [address] Performed By: #### A LLBG ####[facility] LABIA [id number] [place] [address] [place] Lactate [Moles/Vol] 1.2 mmol/L Normal 0.5-2.2 [facility] Comment on above: Order Comment: Speci men Type: ARTERIAL BLOOD SPECIMENOrdering Facility: [facility] Address: [address] [place] [address] Performed By: #### A LLBG ####[facility] LABIA [id number] [place] [address] [place] Methemoglobin (Bld) [Mass fraction] 1.3 % Normal 0.0-1.5 [facility] Comment on above: Order Comment: Speci men Type: ARTERIAL BLOOD SPECIMENOrdering Facility: [facility] Address: [address] [place] [address] Performed By: #### A LLBG ####[facility] LABIA [id number] [place] [address] [place] O2 THERAPY RA=Room Air Normal [facility] Comment on above: Order Comment: Speci men Type: ARTERIAL BLOOD SPECIMENOrdering Facility: [facility] Address: [address] [place] [address] Performed By: #### A LLBG ####[facility] LABCLIA [id number] [place] [id number] [place] Oxygen (Bld) [Partial pressure] 69 mm Hg Low 85-95 [facility] Comment on above: Order Comment: Speci men Type: ARTERIAL BLOOD SPECIMENOrdering Facility: [facility] Address: [address] [place] [address] Performed By: #### A LLBG ####[facility] LABCLIA [id number] [place] [address] [place] Oxyhemoglobin (BldA) [Mass fraction] 90 % Low 95-98 [facility] Comment on above: Order Comment: Speci men Type: ARTERIAL BLOOD SPECIMENOrdering Facility: [facility] Address: [address] [place] [address] Performed By: #### A LLBG ####[facility] LABCLIA [id number] [place] [id number] [place] pH (Bld) 7.38 [pH] Normal 7.35-7.45 [facility] Comment on above: Order Comment: Speci men Type: ARTERIAL BLOOD SPECIMENOrdering Facility: [facility] Address: [address] [place] [address] Performed By: #### A LLBG ####[facility] LABCLIA [id number] [place] [id number] [place] PO2 / FIO2 RATIO 329 mmHg Normal >300 [facility] Comment on above: Order Comment: Speci men Type: ARTERIAL BLOOD SPECIMENOrdering Facility: [facility] Address: [address] [place] [address] Performed By: #### A LLBG ####[facility] LABCLIA [id number] [place] [id number] [place] Potassium [Moles/Vol] 5.1 mmol/L High 3.5-5.0 [facility] Comment on above: Order Comment: Speci men Type: ARTERIAL BLOOD SPECIMENOrdering Facility: [facility] Address: [address] [place] [address] Performed By: #### A LLBG ####[facility] LABCLIA [id number] [address] [address] [place] Sodium [Moles/Vol] 130 mmol/L Low 136-144 [facility] Comment on above: Order Comment: Speci men Type: ARTERIAL BLOOD SPECIMENOrdering Facility: [facility] Address: [address] [place] [id number] Performed By: #### A LLBG ####[facility] LABCLIA [id number] [address] [address] [place] Basic Metabolic Profile (BMP )on 11-25-2024 BUN Normal 4-19 [facility] Comment on above: Result Comment: Canc elled via OM: MD Ordered Performed By: #### L 500.2500, L100.0100 ####[facility] [address] [place], [address] BUN/CRE Normal 10-20 [facility] Comment on above: Result Comment: Canc elled via OM: MD Ordered Performed By: #### L 500.2500, L100.0100 ####[facility] [address] [place], [address] Calcium Normal 7.6-11.0 [facility] Comment on above: Result Comment: Canc elled via OM: MD Ordered Performed By: #### L 500.2500, L100.0100 ####[facility] [address] [place], [address] CL Normal 98-108 [facility] Comment on above: Result Comment: Canc elled via OM: MD Ordered Performed By: #### L 500.2500, L100.0100 ####[facility] [address] [place], [address] CO2 Normal 21.0-32.0 [facility] Comment on above: Result Comment: Canc elled via OM: MD Ordered Performed By: #### L 500.2500, L100.0100 ####[facility] [address] [place], [address] CREAT,SERUM Normal 0.70-1.20 [facility] Comment on above: Result Comment: Canc elled via OM: MD Ordered Performed By: #### L 500.2500, L100.0100 ####[facility] [address] [place], [address] eGFR Normal >60 [facility] Comment on above: Result Comment: Canc elled via OM: MD Ordered Performed By: #### L 500.2500, L100.0100 ####[facility] [address] [place], [address] GAP Normal 5-15 [facility] Comment on above: Result Comment: Canc elled via OM: MD Ordered Performed By: #### L 500.2500, L100.0100 ####[facility] [address] [place], [address] GLU Normal 70-99 [facility] Comment on above: Result Comment: Canc elled via OM: MD Ordered Performed By: #### L 500.2500, L100.0100 ####[facility] [address] [place], [address] Potassium Normal 3.3-5.1 [facility] Comment on above: Result Comment: Canc elled via OM: MD Ordered Performed By: #### L 500.2500, L100.0100 ####[facility] [address] [place], [address] Basic Metabolic Profile (BMP) Normal 133-145 [facility] Comment on above: Result Comment: Canc elled via OM: MD Ordered Performed By: #### L 500.2500, L100.0100 ####[facility] [address] [place], [address] Basic metabolic 2000 panelon 11-25-2024 Anion gap [Moles/Vol] 18 mmol/L High 8-15 [facility] Comment on above: Order Comment: Speci men Type: BLOOD SPECIMENOrdering Facility: [facility] Address: [address] [place] [address] Performed By: #### 1 9123-9, 277-, 28434-9 ####[facility] LABCLIA [id number] [place] [id number] [place] Calcium [Mass/Vol] 8.9 mg/dL Normal 8.5-10.2 [facility] Comment on above: Order Comment: Speci men Type: BLOOD SPECIMENOrdering Facility: [facility] Address: [address] [place] [address] Performed By: #### 1 9123-9, 27711-20, 96242-9 ####[facility] LABCLIA [id number] [place] [id number] [place] Chloride [Moles/Vol] 90 mmol/L Low 98-107 [facility] Comment on above: Order Comment: Speci men Type: BLOOD SPECIMENOrdering Facility: [facility] Address: [address] [place] [address] Performed By: #### 1 9123-9, 27711-20, 63195-0 ####[facility] LABCLIA [id number] [address] [address] [place] CO2 [Moles/Vol] 23 mmol/L Normal 22-30 [facility] Comment on above: Order Comment: Speci men Type: BLOOD SPECIMENOrdering Facility: [facility] Address: [address] [place], [place] [address] Performed By: #### 1 9123-9, 2777-1, 14417-0 ####[facility] LABCLIA [id number] [address] [address] [place] Creatinine [Mass/Vol] 6.58 mg/dL High 0.73-1.22 [facility] Comment on above: Order Comment: Lesvia aleman Type: BLOOD SPECIMENOrdering Facility: [facility] Address: [address] [place] [address] Performed By: #### 1 9123-9, 2777-1, 38455-2 ####[facility] [id number] [place] [address] [place] Creatinine and Glomerular filtration rate.predicted panel (S/P/Bld) 8 mL/min/1.73m??? Low >=60 [facility] Comment on above: Order Comment: Lesvia aleman Type: BLOOD SPECIMENOrdering Facility: [facility] Address: [address] [place] [address] Result Comment: Tessa mated Glomerular Filtration Rate [...] GFR. Performed By: #### 1 9123-9, 2777-, 41352-3 ####[facility] [id number] [place] [id number] [place] Glucose [Mass/Vol] 75 mg/dL Normal 74-99 [facility] Comment on above: Order Comment: Lesvia ash Type: BLOOD SPECIMENOrdering Facility: [facility] Address: [address] [place] [address] Result Comment: The [place] [employer] (ADA) provides guidance for cutoff [...] Standards of Medical Care in Diabetes 2016, [place] [employer]. Diabetes Care. 2016.39(Suppl 1). Performed By: #### 1 9123-9, 2777-, 17702-2 ####[facility] LABCLIA [id number] [place] [address] [place] Potassium [Moles/Vol] 5.2 mmol/L High 3.7-5.1 [facility] Comment on above: Order Comment: Ruddyi ash Type: BLOOD SPECIMENOrdering Facility: [facility] Address: [address] [place] [address] Performed By: #### 1 9123-9, 2776-05, 89620-1 ####[facility] LABCLIA [id number] [place] [id number] [place] Sodium [Moles/Vol] 131 mmol/L Low 136-144 [facility] Comment on above: Order Comment: Lesvia aleman Type: BLOOD SPECIMENOrdering Facility: [facility] Address: [address] [place] [address] Performed By: #### 1 9123-9, 27711-20, 51959-3 ####[facility] LABCLIA [id number] [place] [id number] [place] Urea nitrogen [Mass/Vol] 88 mg/dL High 9-24 [facility] Comment on above: Order Comment: Ruddyi men Type: BLOOD SPECIMENOrdering Facility: [facility] Address: [address] [place] [address] Performed By: #### 1 9123-9, 27711-20, 93957-3 ####[facility] LABCLIA [id number] [address] [address] [place] Anion gap [Moles/Vol] 19 mmol/L High 8-15 [facility] Comment on above: Order Comment: Speci men Type: BLOOD SPECIMENOrdering Facility: [facility] Address: [address] [place] [address] Performed By: #### 2 4321-2 ####[facility] LABCLIA [id number] [facility]ENTER[facility] AVENUEDESK [address] [place] [address] [place] Calcium [Mass/Vol] 8.9 mg/dL Normal 8.5-10.2 [facility] Comment on above: Order Comment: Speci men Type: BLOOD SPECIMENOrdering Facility: [facility] Address: [address] [place] [address] Performed By: #### 2 4321-2 ####[facility] LABCLIA [id number] [facility] [address] [place] [address] [place] Chloride [Moles/Vol] 89 mmol/L Low 98-107 [facility] Comment on above: Order Comment: Speci men Type: BLOOD SPECIMENOrdering Facility: [facility] Address: [address] [place] [address] Performed By: #### 2 4321-2 ####[facility] LABCLIA [id number] [facility]UE[facility] HAYWARD[facility] [address] [place] [address] [place] CO2 [Moles/Vol] 22 mmol/L Normal 22-30 [facility] Comment on above: Order Comment: Speci men Type: BLOOD SPECIMENOrdering Facility: [facility] Address: [address] [place] [address] Performed By: #### 2 4321-2 ####[facility] LABCLIA [id number] [facility] [address] [address] [place] Creatinine [Mass/Vol] 6.20 mg/dL High 0.73-1.22 [facility] Comment on above: Order Comment: Speci men Type: BLOOD SPECIMENOrdering Facility: [facility] Address: [address] [place] [address] Performed By: #### 2 4321-2 ####[facility] LABCLIA [id number] [facility] [place] [id number] [place] Creatinine and Glomerular filtration rate.predicted panel (S/P/Bld) 8 mL/min/1.73m??? Low >=60 [facility] Comment on above: Order Comment: Speci men Type: BLOOD SPECIMENOrdering Facility: [facility] Address: [address] [place] [address] Result Comment: Tessa mated Glomerular Filtration Rate [...] actual GFR. Performed By: #### 2 4321-2 ####[facility] LABCLIA [id number] [place] [address] [place] Potassium [Moles/Vol] 5.5 mmol/L High 3.7-5.1 [facility] Comment on above: Order Comment: Speci men Type: BLOOD SPECIMENOrdering Facility: [facility] Address: [address] [place] [place] [address] Performed By: #### 2 4321-2 ####[facility] LABCLIA [id number] [place] [id number] [place] Sodium [Moles/Vol] 130 mmol/L Low 136-144 [facility] Comment on above: Order Comment: Speci men Type: BLOOD SPECIMENOrdering Facility: [facility] Address: [address] [place] [address] Performed By: #### 2 4321-2 ####[facility] LABIA [id number] [place] [id number] [place] Urea nitrogen [Mass/Vol] 83 mg/dL High 9-24 [facility] Comment on above: Order Comment: Speci men Type: BLOOD SPECIMENOrdering Facility: [facility] Address: [address] [facility] [address] Performed By: #### 2 4321-2 ####[facility] LABCLIA [id number] DEREK STEINER [id number] [place] [address] [place] CBC W/Diff, Automatedon 07-0 -2024 Absolute Neut Normal 2.0-7.7 [facility] Comment on above: Result Comment: Canc elled via OM: MD Ordered Performed By: #### L 500.2500, L100.0100 ####[facility] [address] [place], [address] HCT Normal 40-54 [facility] Comment on above: Result Comment: Canc elled via OM: MD Ordered Performed By: #### L 500.2500, L100.0100 ####[facility] [address] [place], [address] HGB Normal 13.0-16.5 [facility] Comment on above: Result Comment: Canc elled via OM: MD Ordered Performed By: #### L 500.2500, L100.0100 ####[facility] [address] [place], [address] MCH Normal 27.0-32.0 [facility] Comment on above: Result Comment: Canc elled via OM: MD Ordered Performed By: #### L 500.2500, L100.0100 ####[facility] [address] [place], [address] MCHC Normal 32-36 [facility] Comment on above: Result Comment: Canc elled via OM: MD Ordered Performed By: #### L 500.2500, L100.0100 ####[facility] [address] [place], [address] MCV Normal 80-94 [facility] Comment on above: Result Comment: Canc elled via OM: MD Ordered Performed By: #### L 500.2500, L100.0100 ####[facility] [address] [place], [address] NEUT% Normal 47-70 [facility] Comment on above: Result Comment: Canc elled via OM: MD Ordered Performed By: #### L 500.2500, L100.0100 ####[facility] [address] [place], [address] PLT Normal 150-450 [facility] Comment on above: Result Comment: Canc elled via OM: MD Ordered Performed By: #### L 500.2500, L100.0100 ####[facility] [address] [place], [address] RBC Normal 4.6-6.2 [facility] Comment on above: Result Comment: Canc elled via OM: MD Ordered Performed By: #### L 500.2500, L100.0100 ####[facility] [address] [place], [address] RDW CV Normal 11.6-14.6 [facility] Comment on above: Result Comment: Canc elled via OM: MD Ordered Performed By: #### L 500.2500, L100.0100 ####[facility] [address] [place], [address] RDW SD Normal 35.1-43.9 [facility] Comment on above: Result Comment: Canc elled via OM: MD Ordered Performed By: #### L 500.2500, L100.0100 ####[facility] [address] [place], [address] WBC Normal 4.4-11.0 [facility] Comment on above: Result Comment: Canc elled via OM: MD Ordered Performed By: #### L 500.2500, L100.0100 ####[facility] [address] [place], [address] CBC panel Auto (Bld)on 11-25 Erythrocyte distribution width (RBC) [Ratio] 16.2 % High 11.5-15.0 [facility] Comment on above: Order Comment: Speci men Type: BLOOD SPECIMENOrdering Facility: [facility] Address: [address] [place] [address] Performed By: #### 5 8410-2 ####[facility] LABIA [id number] [place] [address] [place] Hematocrit (Bld) [Volume fraction] 34.0 % Low 39.0-51.0 [facility] Comment on above: Order Comment: Speci men Type: BLOOD SPECIMENOrdering Facility: [facility] Address: [address] [place] [address] Performed By: #### 5 8410-2 ####[facility] LABIA [id number] [place] [address] [place] Hemoglobin (Bld) [Mass/Vol] 10.6 g/dL Low 13.0-17.0 [facility] Comment on above: Order Comment: Speci men Type: BLOOD SPECIMENOrdering Facility: [facility] Address: [address] [place] [address] Performed By: #### 5 8410-2 ####[facility] LABIA [id number] [place] [address] [place] MCH (RBC) [Entitic mass] 27.8 pg Normal 26.0-34.0 [facility] Comment on above: Order Comment: Speci men Type: BLOOD SPECIMENOrdering Facility: [facility] Address: [address] [place] [address] Performed By: #### 5 8410-2 ####[facility] LABIA [id number] [place] [id number] [place] MCHC (RBC) [Mass/Vol] 31.2 g/dL Normal 30.5-36.0 [facility] Comment on above: Order Comment: Speci men Type: BLOOD SPECIMENOrdering Facility: [facility] Address: [address] [place] [address] Performed By: #### 5 8410-2 ####[facility] LABIA [id number] [place] [id number] [place] MCV (RBC) [Entitic vol] 89.2 fL Normal 80.0-100.0 [facility] Comment on above: Order Comment: Speci men Type: BLOOD SPECIMENOrdering Facility: [facility] Address: [address] [place] [address] Performed By: #### 5 8410-2 ####[facility] LABIA [id number] [place] [address] [place] Nucleated RBC (Bld) [#/Vol] 10*3/uL Normal <0.01 [facility] Comment on above: Order Comment: Speci men Type: BLOOD SPECIMENOrdering Facility: [facility] Address: [address] [place] [address] Performed By: #### 5 8410-2 ####[facility] LABIA [id number] [place] [address] [place] Platelet mean volume (Bld) [Entitic vol] 11.8 fL Normal 9.0-12.7 [facility] Comment on above: Order Comment: Speci men Type: BLOOD SPECIMENOrdering Facility: [facility] Address: [address] [place] [address] Performed By: #### 5 8410-2 ####[facility] LABIA [id number] [place] [address] [place] Platelets (Bld) [#/Vol] 142 10*3/uL Low 150-400 [facility] Comment on above: Order Comment: Speci men Type: BLOOD SPECIMENOrdering Facility: [facility] Address: [address] [place] [address] Performed By: #### 5 8410-2 ####[facility] LABCLIA [id number] [place] [id number] [place] RBC (Bld) [#/Vol] 3.81 10*6/uL Low 4.20-6.00 [facility] Comment on above: Order Comment: Speci men Type: BLOOD SPECIMENOrdering Facility: [facility] Address: [address] [place] [address] Performed By: #### 5 8410-2 ####[facility] LABIA [id number] [place] [address] [place] WBC (Bld) [#/Vol] 8.99 10*3/uL Normal 3.70-11.00 [facility] Comment on above: Order Comment: Speci men Type: BLOOD SPECIMENOrdering Facility: [facility] Address: [address] [place] [address] Performed By: #### 5 8410-2 ####[facility] [id number] [place] [id number] [place] CONSULT PROGon 11-25-2024 CONSULT PROG Normal [facility] Comprehensive metabolic 2000 panelon 11-25-2024 Albumin [Mass/Vol] 3.5 g/dL Low 3.9-4.9 [facility] Comment on above: Order Comment: Speci men Type: BLOOD SPECIMENOrdering Facility: [facility] Address: [address] [place] [address] Performed By: #### 1 9123-9, 20848-0 ####[facility] [id number] [place] [address] [place] ALP [Catalytic activity/Vol] 66 U/L Normal 38-113 [facility] Comment on above: Order Comment: Speci men Type: BLOOD SPECIMENOrdering Facility: [facility] Address: [address] [place] [address] Performed By: #### 1 9123-9, 96478-8 ####[facility] LABCLIA [id number] [facility] [address] [place] [address] [place] ALT [Catalytic activity/Vol] 37 U/L Normal 10-54 [facility] Comment on above: Order Comment: Speci men Type: BLOOD SPECIMENOrdering Facility: [facility] Address: [address] [place] [address] Performed By: #### 1 23-9, 88664-0 ####[facility] LABCLIA [id number] [facility] [address] [place] [address] [place] Anion gap [Moles/Vol] 19 mmol/L High 8-15 [facility] Comment on above: Order Comment: Speci men Type: BLOOD SPECIMENOrdering Facility: [facility] Address: [address] [place] [address] Performed By: #### 1 23-9, 36428-0 ####[facility] LABCLIA [id number] [facility] [address] [place] [address] [place] AST [Catalytic activity/Vol] 21 U/L Normal 14-40 [facility] Comment on above: Order Comment: Speci men Type: BLOOD SPECIMENOrdering Facility: [facility] Address: [address] [place], [place] [address] Performed By: #### 1 23-9, 21500-1 ####[facility] LABCLIA [id number] [facility] [address] [place] [address] [place] Bilirubin [Mass/Vol] 0.2 mg/dL Normal 0.2-1.3 [facility] Comment on above: Order Comment: Speci men Type: BLOOD SPECIMENOrdering Facility: [facility] Address: [address] [place], [place] [address] Performed By: #### 1 9123-9, 56095-1 ####[facility] LABCLIA [id number] [address] [place] [address] [place] Calcium [Mass/Vol] 8.9 mg/dL Normal 8.5-10.2 [facility] Comment on above: Order Comment: Speci men Type: BLOOD SPECIMENOrdering Facility: [facility] Address: [address] [place], [place] [address] Performed By: #### 1 9123-9, 47791-2 ####[facility] LABCLIA [id number] [facility] [address] [place] [address] [place] Chloride [Moles/Vol] 90 mmol/L Low 98-107 [facility] Comment on above: Order Comment: Speci men Type: BLOOD SPECIMENOrdering Facility: [facility] Address: [address] [place] [address] Performed By: #### 1 9123-9, 86931-4 ####[facility] LABCLIA [id number] [facility] [place] [address] [place] CO2 [Moles/Vol] 23 mmol/L Normal 22-30 [facility] Comment on above: Order Comment: Speci men Type: BLOOD SPECIMENOrdering Facility: [facility] Address: [address] [place] [address] Performed By: #### 1 9123-9, 44091-6 ####[facility] LABCLIA [id number] [facility] [address], [facility] [place] Creatinine [Mass/Vol] 6.00 mg/dL High 0.73-1.22 [facility] Comment on above: Order Comment: Speci men Type: BLOOD SPECIMENOrdering Facility: [facility] Address: [address] [place] [address] Performed By: #### 1 9123-9, 17419-0 ####[facility] LABCLIA [id number] [facility] [address] [place] [address] [place] Creatinine and Glomerular filtration rate.predicted panel (S/P/Bld) 8 mL/min/1.73m??? Low >=60 [facility] Comment on above: Order Comment: Lesvia aleman Type: BLOOD SPECIMENOrdering Facility: [facility] Address: [address] [place] [address] Result Comment: Tessa mated Glomerular Filtration Rate [...] actual GFR. Performed By: #### 1 9123-9, 65378-2 ####[facility] [id number] [place] [address] [place] Glucose [Mass/Vol] 227 mg/dL High 74-99 [facility] Comment on above: Order Comment: Lesvia aleman Type: BLOOD SPECIMENOrdering Facility: [facility] Address: [address] [place] [address] Result Comment: The [place] [employer] (ADA) provides guidance for cutoff [...] Standards of Medical Care in Diabetes 2016, [place] [employer]. Diabetes Care. 2016.39(Suppl 1). Performed By: #### 1 9123-9, 04079-2 ####[facility] [id number] [place] [id number] [place] Potassium [Moles/Vol] 5.3 mmol/L High 3.7-5.1 [facility] Comment on above: Order Comment: Lesvia aleman Type: BLOOD SPECIMENOrdering Facility: [facility] Address: [address] [place] [address] Performed By: #### 1 9123-9, 97630-2 ####[facility] LABCLIA [id number] [address] [address] [place] Protein [Mass/Vol] 6.6 g/dL Normal 6.3-8.0 [facility] Comment on above: Order Comment: Speci men Type: BLOOD SPECIMENOrdering Facility: [facility] Address: [address] [place] [address] Performed By: #### 1 9123-9, 15122-8 ####[facility] LABCLIA [id number] [address] [address] [place] Sodium [Moles/Vol] 132 mmol/L Low 136-144 [facility] Comment on above: Order Comment: Speci men Type: BLOOD SPECIMENOrdering Facility: [facility] Address: [address] [place] [address] Performed By: #### 1 9123-9, 87237-0 ####[facility] LABIA [id number] [address] [address] [place] Urea nitrogen [Mass/Vol] 71 mg/dL High 9-24 [facility] Comment on above: Order Comment: Speci men Type: BLOOD SPECIMENOrdering Facility: [facility] Address: [address] [place] [address] Performed By: #### 1 9123-9, 14386-0 ####[facility] LABIA [id number] [address] [address] [place] Magnesium SerPl-mCncon 11-25 Magnesium [Mass/Vol] 2.5 mg/dL High 1.7-2.3 [facility] Comment on above: Order Comment: Speci men Type: BLOOD SPECIMENOrdering Facility: [facility] Address: [address] [place], [place] [address] Performed By: #### 1 9123-9, 2777-1, 45298-5 ####[facility] LABIA [id number] [place] [id number] [place] Magnesium [Mass/Vol] 2.6 mg/dL High 1.7-2.3 [facility] Comment on above: Order Comment: Speci men Type: BLOOD SPECIMENOrdering Facility: [facility] Address: [address] [place] [address] Performed By: #### 1 9123-9, 34446-5 ####[facility] LABIA [id number] [place] [id number] [place] Phosphate SerPl-mCncon 11-25 Phosphate [Mass/Vol] 9.4 mg/dL High 2.7-4.8 [facility] Comment on above: Order Comment: Speci men Type: BLOOD SPECIMENOrdering Facility: [facility] Address: [address] [place] [address] Performed By: #### 1 9123-9, 2777-1, 62619-8 ####[facility] [id number] [place] [address] [place] XR CHEST 1V FRONTAL PORTon 0 11-25-2024 XR CHEST 1V FRONTAL PORT Normal [facility] APIXABAN ASSAYon 11-24-2024 APIXABAN 36.00 ng/mL Normal [facility] Comment on above: Order Comment: Speci men Type: BLOOD SPECIMENOrdering Facility: [facility] Address: [address] [place] [address] Result Comment: APIX ABAN PEAK AND TROUGH [...] 572 ng/mLTrough: 41 to 335 ng/mLReference: Sunday [facility] Pharmacocetrics Syst Pharmacol. 2017;6(5):340-349. Performed By: #### A PIXBN ####[facility] [id number] [place] [address] [place] ARTERIAL BLOOD GASESon 11-24 Base excess Calc (Bld) [Moles/Vol] 3 mmol/L High 0-2 [facility] Comment on above: Order Comment: Speci men Type: ARTERIAL BLOOD SPECIMENOrdering Facility: [facility] Address: [address] [place] [address] Performed By: #### A LLBG ####[facility] [id number] [address] [place] Body temperature 98.6 [degF] Normal [facility] Comment on above: Order Comment: Speci men Type: ARTERIAL BLOOD SPECIMENOrdering Facility: [facility] Address: [address] [place] [address] Performed By: #### A LLBG ####[facility] [id number] [address] [place] Calcium.ionized (Bld) [Mass/Vol] 1.11 mmol/L Normal 1.08-1.30 [facility] Comment on above: Order Comment: Speci men Type: ARTERIAL BLOOD SPECIMENOrdering Facility: [facility] Address: [address] [place] [address] Performed By: #### A LLBG ####[facility] [id number] [place] [address] [place] Calcium.ionized adjusted to pH 7.4 (BldA) [Moles/Vol] 1.11 mmol/L Normal 1.08-1.30 [facility] Comment on above: Order Comment: Speci men Type: ARTERIAL BLOOD SPECIMENOrdering Facility: [facility] Address: [address] [place] [address] Performed By: #### A LLBG ####[facility] LABCLIA [id number] [place] [address] [place] Carboxyhemoglobin (BldA) [Mass fraction] 1.2 % Normal 0.0-2.0 [facility] Comment on above: Order Comment: Speci men Type: ARTERIAL BLOOD SPECIMENOrdering Facility: [facility] Address: [address] [place] [address] Result Comment: Carb oxyhemoglobin Reference Range for Smokers: 2.0-8.0% Performed By: #### A LLBG ####[facility] LABIA [id number] [place] [address] [place] CO2 (Bld) [Partial pressure] 45 mm Hg Normal 36-46 [facility] Comment on above: Order Comment: Speci men Type: ARTERIAL BLOOD SPECIMENOrdering Facility: [facility] Address: [address] [place] [address] Performed By: #### A LLBG ####[facility] LABCLIA [id number] [place] [address] [place] Glucose [Mass/Vol] 182 mg/dL High 60-105 [facility] Comment on above: Order Comment: Speci men Type: ARTERIAL BLOOD SPECIMENOrdering Facility: [facility] Address: [address] [place] [address] Performed By: #### A LLBG ####[facility] LABIA [id number] [place] [address] [place] HCO3 (Bld) [Moles/Vol] 27 mmol/L High 22-26 [facility] Comment on above: Order Comment: Speci men Type: ARTERIAL BLOOD SPECIMENOrdering Facility: [facility] Address: [address] [address] Performed By: #### A LLBG ####[facility] LABIA [id number] [address] [address] [place] Hematocrit (Bld) [Volume fraction] 34.6 % Low 39.0-51.0 [facility] Comment on above: Order Comment: Speci men Type: ARTERIAL BLOOD SPECIMENOrdering Facility: [facility] Address: [address] [place] [address] Performed By: #### A LLBG ####[facility] LABIA [id number] [place] [address] [place] Hemoglobin (Bld) [Mass/Vol] 11.2 g/dL Low 13.0-17.0 [facility] Comment on above: Order Comment: Speci men Type: ARTERIAL BLOOD SPECIMENOrdering Facility: [facility] Address: [address] [place] [address] Performed By: #### A LLBG ####[facility] LABIA [id number] [place] [address] [place] Lactate [Moles/Vol] 1.1 mmol/L Normal 0.5-2.2 [facility] Comment on above: Order Comment: Speci men Type: ARTERIAL BLOOD SPECIMENOrdering Facility: [facility] Address: [address] [place] [address] Performed By: #### A LLBG ####[facility] LABIA [id number] [place] [address] [place] Methemoglobin (Bld) [Mass fraction] 1.3 % Normal 0.0-1.5 [facility] Comment on above: Order Comment: Speci men Type: ARTERIAL BLOOD SPECIMENOrdering Facility: [facility] Address: [address] [place] [address] Performed By: #### A LLBG ####[facility] LABCLIA [id number] [place] [address] [place] O2 THERAPY RA=Room Air Normal [facility] Comment on above: Order Comment: Speci men Type: ARTERIAL BLOOD SPECIMENOrdering Facility: [facility] Address: [address] [place] [address] Performed By: #### A LLBG ####[facility] LABCLIA [id number] [place] [id number] [place] Oxygen (Bld) [Partial pressure] 78 mm Hg Low 85-95 [facility] Comment on above: Order Comment: Speci men Type: ARTERIAL BLOOD SPECIMENOrdering Facility: [facility] Address: [address] [place] [address] Performed By: #### A LLBG ####[facility] LABCLIA [id number] [address] [place] Oxyhemoglobin (BldA) [Mass fraction] 92 % Low 95-98 [facility] Comment on above: Order Comment: Speci men Type: ARTERIAL BLOOD SPECIMENOrdering Facility: [facility] Address: [address] [place] [address] Performed By: #### A LLBG ####[facility] LABCLIA [id number] [place] [address] [place] pH (Bld) 7.40 [pH] Normal 7.35-7.45 [facility] Comment on above: Order Comment: Speci men Type: ARTERIAL BLOOD SPECIMENOrdering Facility: [facility] Address: [address] [place] [address] Performed By: #### A LLBG ####[facility] LABCLIA [id number] [place] [id number] [place] PO2 / FIO2 RATIO 371 mmHg Normal >300 [facility] Comment on above: Order Comment: Speci men Type: ARTERIAL BLOOD SPECIMENOrdering Facility: [facility] Address: [address] [place] [address] Performed By: #### A LLBG ####[facility] LABCLIA [id number] [place] [address] [place] Potassium [Moles/Vol] 5.0 mmol/L Normal 3.5-5.0 [facility] Comment on above: Order Comment: Speci men Type: ARTERIAL BLOOD SPECIMENOrdering Facility: [facility] Address: [address] [place] [address] Performed By: #### A LLBG ####[facility] LABCLIA [id number] [place] [address] [place] Sodium [Moles/Vol] 132 mmol/L Low 136-144 [facility] Comment on above: Order Comment: Speci men Type: ARTERIAL BLOOD SPECIMENOrdering Facility: [facility] Address: [address] [place] [address] Performed By: #### A LLBG ####[facility] LABCLIA [id number] [place] [address] [place] Base excess Calc (Bld) [Moles/Vol] 5 mmol/L High 0-2 [facility] Comment on above: Order Comment: Speci men Type: ARTERIAL BLOOD SPECIMENOrdering Facility: [facility] Address: [address] [place] [address] Performed By: #### A LLBG ####[facility] LABCLIA [id number] [place] [id number] [place] Body temperature 98.24 [degF] Normal [facility] Comment on above: Order Comment: Speci men Type: ARTERIAL BLOOD SPECIMENOrdering Facility: [facility] Address: [address] [place] [address] Performed By: #### A LLBG ####[facility] LABCLIA [id number] [address] [place] Calcium.ionized (Bld) [Mass/Vol] 1.13 mmol/L Normal 1.08-1.30 [facility] Comment on above: Order Comment: Speci men Type: ARTERIAL BLOOD SPECIMENOrdering Facility: [facility] Address: [address] [place] [address] Performed By: #### A LLBG ####[facility] LABCLIA [id number] [address] [place] Calcium.ionized adjusted to pH 7.4 (BldA) [Moles/Vol] 1.15 mmol/L Normal 1.08-1.30 [facility] Comment on above: Order Comment: Speci men Type: ARTERIAL BLOOD SPECIMENOrdering Facility: [facility] Address: [address] [place] [address] Performed By: #### A LLBG ####[facility] LABCLIA [id number] [address] [place] [facility] Carboxyhemoglobin (BldA) [Mass fraction] 0.6 % Normal 0.0-2.0 [facility] Comment on above: Order Comment: Speci men Type: ARTERIAL BLOOD SPECIMENOrdering Facility: [facility] Address: [address] [place] [address] Result Comment: Carb oxyhemoglobin Reference Range for Smokers: 2.0-8.0% Performed By: #### A LLBG ####[facility] LABCLIA [id number] [address] [place] CO2 (Bld) [Partial pressure] 45 mm Hg Normal 36-46 [facility] Comment on above: Order Comment: Speci men Type: ARTERIAL BLOOD SPECIMENOrdering Facility: [facility] Address: [address] [place] [address] Performed By: #### A LLBG ####[facility] LABCLIA [id number] [place] [address] [place] CO2 adjusted to patient's actual temperature (Bld) [Partial pressure] 44 mmHg Normal 36-46 [facility] Comment on above: Order Comment: Speci men Type: ARTERIAL BLOOD SPECIMENOrdering Facility: [facility] Address: [facility] [place] [address] Performed By: #### A LLBG ####[facility] LABCLIA [id number] [place] [id number] [place] Glucose [Mass/Vol] 73 mg/dL Normal 60-105 [facility] Comment on above: Order Comment: Speci men Type: ARTERIAL BLOOD SPECIMENOrdering Facility: [facility] Address: [address] [place] [address] Performed By: #### A LLBG ####[facility] LABCLIA [id number] [place] [id number] [place] HCO3 (Bld) [Moles/Vol] 29 mmol/L High 22-26 [facility] Comment on above: Order Comment: Speci men Type: ARTERIAL BLOOD SPECIMENOrdering Facility: [facility] Address: [address] [place] [address] Performed By: #### A LLBG ####[facility] LABCLIA [id number] [place] [address] [place] Hematocrit (Bld) [Volume fraction] 34.8 % Low 39.0-51.0 [facility] Comment on above: Order Comment: Speci men Type: ARTERIAL BLOOD SPECIMENOrdering Facility: [facility] Address: [address] [place] [address] Performed By: #### A LLBG ####[facility] LABCLIA [id number] [place] [id number] [place] Hemoglobin (Bld) [Mass/Vol] 11.3 g/dL Low 13.0-17.0 [facility] Comment on above: Order Comment: Speci men Type: ARTERIAL BLOOD SPECIMENOrdering Facility: [facility] Address: [address], [place] [address] Performed By: #### A LLBG ####[facility] LABCLIA [id number] [address] [address] [place] Lactate [Moles/Vol] 0.9 mmol/L Normal 0.5-2.2 [facility] Comment on above: Order Comment: Speci men Type: ARTERIAL BLOOD SPECIMENOrdering Facility: [facility] Address: [address] [place] [address] Performed By: #### A LLBG ####[facility] LABCLIA [id number] [place] [id number] [place] Methemoglobin (Bld) [Mass fraction] 0.5 % Normal 0.0-1.5 [facility] Comment on above: Order Comment: Speci men Type: ARTERIAL BLOOD SPECIMENOrdering Facility: [facility] Address: [address] [place] [address] Performed By: #### A LLBG ####[facility] LABCLIA [id number] [place] [id number] [place] O2 THERAPY RA=Room Air Normal [facility] Comment on above: Order Comment: Speci men Type: ARTERIAL BLOOD SPECIMENOrdering Facility: [facility] Address: [address] [place], [place] [id number] Performed By: #### A LLBG ####[facility] LABCLIA [id number] [address] [address] [place] Oxygen (Bld) [Partial pressure] 98 mm Hg High 85-95 [facility] Comment on above: Order Comment: Speci men Type: ARTERIAL BLOOD SPECIMENOrdering Facility: [facility] Address: [address] [place], [place] [id number] Performed By: #### A LLBG ####[facility] LABCLIA [id number] [address] [address] [place] Oxygen adjusted to patient's actual temperature (Bld) [Partial pressure] 97 mmHg High 85-95 [facility] Comment on above: Order Comment: Speci men Type: ARTERIAL BLOOD SPECIMENOrdering Facility: [facility] Address: [address] [place] [address] Performed By: #### A LLBG ####[facility] LABCLIA [id number] [address] [address] [place] Oxyhemoglobin (BldA) [Mass fraction] 95 % Normal 95-98 [facility] Comment on above: Order Comment: Speci men Type: ARTERIAL BLOOD SPECIMENOrdering Facility: [facility] Address: [address] [place] [address] Performed By: #### A LLBG ####[facility] LABCLIA [id number] [place] [id number] [place] pH (Bld) 7.43 [pH] Normal 7.35-7.45 [facility] Comment on above: Order Comment: Speci men Type: ARTERIAL BLOOD SPECIMENOrdering Facility: [facility] Address: [address] [place] [address] Performed By: #### A LLBG ####[facility] LABCLIA [id number] [place] [id number] [place] pH adjusted to patient's actual temperature (Bld) 7.44 Normal 7.35-7.45 [facility] Comment on above: Order Comment: Speci men Type: ARTERIAL BLOOD SPECIMENOrdering Facility: [facility] Address: [address] [place] [address] Performed By: #### A LLBG ####[facility] LABCLIA [id number] [place] [id number] [place] PO2 / FIO2 RATIO 467 mmHg Normal >300 [facility] Comment on above: Order Comment: Speci men Type: ARTERIAL BLOOD SPECIMENOrdering Facility: [facility] Address: [address] [place], [place] [address] Performed By: #### A LLBG ####[facility] LABCLIA [id number] [place] [id number] [place] Potassium [Moles/Vol] 4.5 mmol/L Normal 3.5-5.0 [facility] Comment on above: Order Comment: Speci men Type: ARTERIAL BLOOD SPECIMENOrdering Facility: [facility] Address: [address] [place] [address] Performed By: #### A LLBG ####[facility] LABCLIA [id number] [place] [address] [place] Sodium [Moles/Vol] 135 mmol/L Low 136-144 [facility] Comment on above: Order Comment: Speci men Type: ARTERIAL BLOOD SPECIMENOrdering Facility: [facility] Address: [address] [place] [address] Performed By: #### A LLBG ####[facility] LABCLIA [id number] [place] [address] [place] Base excess Calc (Bld) [Moles/Vol] 4 mmol/L High 0-2 [facility] Comment on above: Order Comment: Speci men Type: ARTERIAL BLOOD SPECIMENOrdering Facility: [facility] Address: [address] [place] [address] Performed By: #### A LLBG ####[facility] LABIA [id number] [place] [address] [place] Body temperature 98.6 [degF] Normal [facility] Comment on above: Order Comment: Speci men Type: ARTERIAL BLOOD SPECIMENOrdering Facility: [facility] Address: [address] [place] [address] Performed By: #### A LLBG ####[facility] LABIA [id number] [place] [address] [place] Calcium.ionized (Bld) [Mass/Vol] 1.12 mmol/L Normal 1.08-1.30 [facility] Comment on above: Order Comment: Speci men Type: ARTERIAL BLOOD SPECIMENOrdering Facility: [facility] Address: [address] [place] [address] Performed By: #### A LLBG ####[facility] LABIA [id number] [place] [address] [place] Calcium.ionized adjusted to pH 7.4 (BldA) [Moles/Vol] 1.15 mmol/L Normal 1.08-1.30 [facility] Comment on above: Order Comment: Speci men Type: ARTERIAL BLOOD SPECIMENOrdering Facility: [facility] Address: [address] [place] [address] Performed By: #### A LLBG ####[facility] LABIA [id number] [place] [address] [place] Carboxyhemoglobin (BldA) [Mass fraction] 1.0 % Normal 0.0-2.0 [facility] Comment on above: Order Comment: Speci men Type: ARTERIAL BLOOD SPECIMENOrdering Facility: [facility] Address: [address] [place] [address] Result Comment: Carb oxyhemoglobin Reference Range for Smokers: 2.0-8.0% Performed By: #### A LLBG ####[facility] LABIA [id number] [place] [address] [place] CO2 (Bld) [Partial pressure] 43 mm Hg Normal 36-46 [facility] Comment on above: Order Comment: Speci men Type: ARTERIAL BLOOD SPECIMENOrdering Facility: [facility] Address: [address] [place] [place] [address] Performed By: #### A LLBG ####[facility] LABIA [id number] [place] [id number] [place] Glucose [Mass/Vol] 83 mg/dL Normal 60-105 [facility] Comment on above: Order Comment: Speci men Type: ARTERIAL BLOOD SPECIMENOrdering Facility: [facility] Address: [address] [place] [address] Performed By: #### A LLBG ####[facility] LABCLIA [id number] [place] [address] [place] HCO3 (Bld) [Moles/Vol] 29 mmol/L High 22-26 [facility] Comment on above: Order Comment: Speci men Type: ARTERIAL BLOOD SPECIMENOrdering Facility: [facility] Address: [address] [place] [address] Performed By: #### A LLBG ####[facility] LABCLIA [id number] [place] [address] [place] Hematocrit (Bld) [Volume fraction] 33.1 % Low 39.0-51.0 [facility] Comment on above: Order Comment: Speci men Type: ARTERIAL BLOOD SPECIMENOrdering Facility: [facility] Address: [address] [place] [address] Performed By: #### A LLBG ####[facility] LABCLIA [id number] [place] [address] [place] Hemoglobin (Bld) [Mass/Vol] 10.7 g/dL Low 13.0-17.0 [facility] Comment on above: Order Comment: Speci men Type: ARTERIAL BLOOD SPECIMENOrdering Facility: [facility] Address: [address] [place] [address] Performed By: #### A LLBG ####[facility] LABCLIA [id number] [place] [address] [place] Lactate [Moles/Vol] 0.8 mmol/L Normal 0.5-2.2 [facility] Comment on above: Order Comment: Speci men Type: ARTERIAL BLOOD SPECIMENOrdering Facility: [facility] Address: [address] [place] [address] Performed By: #### A LLBG ####[facility] LABCLIA [id number] [address] [place] [address] [place] Methemoglobin (Bld) [Mass fraction] 1.6 % High 0.0-1.5 [facility] Comment on above: Order Comment: Speci men Type: ARTERIAL BLOOD SPECIMENOrdering Facility: [facility] Address: [address] [place] [address] Performed By: #### A LLBG ####[facility] LABCLIA [id number] [place] [address] [place] O2 THERAPY RA=Room Air Normal [facility] Comment on above: Order Comment: Speci men Type: ARTERIAL BLOOD SPECIMENOrdering Facility: [facility] Address: [address] [place] [address] Performed By: #### A LLBG ####[facility] LABCLIA [id number] [place] [address] [place] Oxygen (Bld) [Partial pressure] 94 mm Hg Normal 85-95 [facility] Comment on above: Order Comment: Speci men Type: ARTERIAL BLOOD SPECIMENOrdering Facility: [facility] Address: [address] [place] [address] Performed By: #### A LLBG ####[facility] LABCLIA [id number] [place] [address] [place] Oxyhemoglobin (BldA) [Mass fraction] 94 % Low 95-98 [facility] Comment on above: Order Comment: Speci men Type: ARTERIAL BLOOD SPECIMENOrdering Facility: [facility] Address: [address] [place] [address] Performed By: #### A LLBG ####[facility] LABCLIA [id number] [place] [id number] [place] pH (Bld) 7.44 [pH] Normal 7.35-7.45 [facility] Comment on above: Order Comment: Speci men Type: ARTERIAL BLOOD SPECIMENOrdering Facility: [facility] Address: [address] [place] [address] Performed By: #### A LLBG ####[facility] LABCLIA [id number] [address] [address] [place] PO2 / FIO2 RATIO 448 mmHg Normal >300 [facility] Comment on above: Order Comment: Speci men Type: ARTERIAL BLOOD SPECIMENOrdering Facility: [facility] Address: [address] [place] [address] Performed By: #### A LLBG ####[facility] LABCLIA [id number] [place] [address] [place] Potassium [Moles/Vol] 4.3 mmol/L Normal 3.5-5.0 [facility] Comment on above: Order Comment: Speci men Type: ARTERIAL BLOOD SPECIMENOrdering Facility: [facility] Address: [address] [place] [address] Performed By: #### A LLBG ####[facility] LABCLIA [id number] [place] [address] [place] Sodium [Moles/Vol] 134 mmol/L Low 136-144 [facility] Comment on above: Order Comment: Speci men Type: ARTERIAL BLOOD SPECIMENOrdering Facility: [facility] Address: [address] [place] [address] Performed By: #### A LLBG ####[facility] LABCLIA [id number] [place] [address] [place] Base excess Calc (Bld) [Moles/Vol] 5 mmol/L High 0-2 [facility] Comment on above: Order Comment: Speci men Type: ARTERIAL BLOOD SPECIMENOrdering Facility: [facility] Address: [address] [place] [address] Performed By: #### A LLBG ####[facility] LABCLIA [id number] [place] [id number] [place] Body temperature 98.6 [degF] Normal [facility] Comment on above: Order Comment: Speci men Type: ARTERIAL BLOOD SPECIMENOrdering Facility: [facility] Address: [address] [place] [address] Performed By: #### A LLBG ####[facility] [id number] [place] [address] [place] Calcium.ionized (Bld) [Mass/Vol] 1.15 mmol/L Normal 1.08-1.30 [facility] Comment on above: Order Comment: Speci men Type: ARTERIAL BLOOD SPECIMENOrdering Facility: [facility] Address: [address] [place] [address] Performed By: #### A LLBG ####[facility] [id number] [place] [address] [place] Calcium.ionized adjusted to pH 7.4 (BldA) [Moles/Vol] 1.19 mmol/L Normal 1.08-1.30 [facility] Comment on above: Order Comment: Speci men Type: ARTERIAL BLOOD SPECIMENOrdering Facility: [facility] Address: [address] [place] [address] Performed By: #### A LLBG ####[facility] [id number] [place] [address] [place] Carboxyhemoglobin (BldA) [Mass fraction] 0.2 % Normal 0.0-2.0 [facility] Comment on above: Order Comment: Speci men Type: ARTERIAL BLOOD SPECIMENOrdering Facility: [facility] Address: [address] [place] [address] Result Comment: Carb oxyhemoglobin Reference Range for Smokers: 2.0-8.0% Performed By: #### A LLBG ####[facility] [id number] [place] [address] [place] CO2 (Bld) [Partial pressure] 40 mm Hg Normal 36-46 [facility] Comment on above: Order Comment: Speci men Type: ARTERIAL BLOOD SPECIMENOrdering Facility: [facility] Address: [address] [place] [address] Performed By: #### A LLBG ####[facility] LABCLIA [id number] [place] [address] [place] Glucose [Mass/Vol] 121 mg/dL High 60-105 [facility] Comment on above: Order Comment: Speci men Type: ARTERIAL BLOOD SPECIMENOrdering Facility: [facility] Address: [address] [place] [address] Performed By: #### A LLBG ####[facility] LABCLIA [id number] [place] [address] [place] HCO3 (Bld) [Moles/Vol] 28 mmol/L High 22-26 [facility] Comment on above: Order Comment: Speci men Type: ARTERIAL BLOOD SPECIMENOrdering Facility: [facility] Address: [address] [place] [address] Performed By: #### A LLBG ####[facility] LABCLIA [id number] [place] [address] [place] Hematocrit (Bld) [Volume fraction] 33.3 % Low 39.0-51.0 [facility] Comment on above: Order Comment: Speci men Type: ARTERIAL BLOOD SPECIMENOrdering Facility: [facility] Address: [address] [place] [address] Performed By: #### A LLBG ####[facility] LABCLIA [id number] [place] [id number] [place] Hemoglobin (Bld) [Mass/Vol] 10.8 g/dL Low 13.0-17.0 [facility] Comment on above: Order Comment: Speci men Type: ARTERIAL BLOOD SPECIMENOrdering Facility: [facility] Address: [address] [place] [address] Performed By: #### A LLBG ####[facility] LABCLIA [id number] [place] [address] [place] Lactate [Moles/Vol] 1.5 mmol/L Normal 0.5-2.2 [facility] Comment on above: Order Comment: Speci men Type: ARTERIAL BLOOD SPECIMENOrdering Facility: [facility] Address: [address] [place] [address] Performed By: #### A LLBG ####[facility] LABCLIA [id number] [place] [address] [place] Methemoglobin (Bld) [Mass fraction] 0.4 % Normal 0.0-1.5 [facility] Comment on above: Order Comment: Speci men Type: ARTERIAL BLOOD SPECIMENOrdering Facility: [facility] Address: [address] [place] [address] Performed By: #### A LLBG ####[facility] LABCLIA [id number] [place] [address] [place] O2 THERAPY RA=Room Air Normal [facility] Comment on above: Order Comment: Speci men Type: ARTERIAL BLOOD SPECIMENOrdering Facility: [facility] Address: [address] [place] [address] Performed By: #### A LLBG ####[facility] LABCLIA [id number] [place] [address] [place] Oxygen (Bld) [Partial pressure] 119 mm Hg High 85-95 [facility] Comment on above: Order Comment: Speci men Type: ARTERIAL BLOOD SPECIMENOrdering Facility: [facility] Address: [address] [place], [place] [id number] Performed By: #### A LLBG ####[facility] LABCLIA [id number] [place] [id number] [place] Oxyhemoglobin (BldA) [Mass fraction] 97 % Normal 95-98 [facility] Comment on above: Order Comment: Speci men Type: ARTERIAL BLOOD SPECIMENOrdering Facility: [facility] Address: [address] [place] [address] Performed By: #### A LLBG ####[facility] LABCLIA [id number] [address] [address] [place] pH (Bld) 7.47 [pH] High 7.35-7.45 [facility] Comment on above: Order Comment: Speci men Type: ARTERIAL BLOOD SPECIMENOrdering Facility: [facility] Address: [address] [place] [address] Performed By: #### A LLBG ####[facility] LABCLIA [id number] [address] [address] [place] PO2 / FIO2 RATIO 567 mmHg Normal >300 [facility] Comment on above: Order Comment: Speci men Type: ARTERIAL BLOOD SPECIMENOrdering Facility: [facility] Address: [address] [place] [address] Performed By: #### A LLBG ####[facility] LABCLIA [id number] [place] [id number] [place] Potassium [Moles/Vol] 4.0 mmol/L Normal 3.5-5.0 [facility] Comment on above: Order Comment: Speci men Type: ARTERIAL BLOOD SPECIMENOrdering Facility: [facility] Address: [address] [place] [address] Performed By: #### A LLBG ####[facility] LABCLIA [id number] [place] [id number] [place] Sodium [Moles/Vol] 134 mmol/L Low 136-144 [facility] Comment on above: Order Comment: Speci men Type: ARTERIAL BLOOD SPECIMENOrdering Facility: [facility] Address: [address] [place] [address] Performed By: #### A LLBG ####[facility] LABCLIA [id number] [address] [address] [place] Basic Metabolic Profile (BMP )on 11-24-2024 BUN Normal 4-19 [facility] Comment on above: Result Comment: Canc elled via OM: MD Ordered Performed By: #### L 500.2500, L100.0100 ####[facility] [address] [place], [address] BUN/CRE Normal 10-20 [facility] Comment on above: Result Comment: Canc elled via OM: MD Ordered Performed By: #### L 500.2500, L100.0100 ####[facility] [address] [place], [address] Calcium Normal 7.6-11.0 [facility] Comment on above: Result Comment: Canc elled via OM: MD Ordered Performed By: #### L 500.2500, L100.0100 ####[facility] [address] [place], [address] CL Normal 98-108 [facility] Comment on above: Result Comment: Canc elled via OM: MD Ordered Performed By: #### L 500.2500, L100.0100 ####[facility] [address] [place], [address] CO2 Normal 21.0-32.0 [facility] Comment on above: Result Comment: Canc elled via OM: MD Ordered Performed By: #### L 500.2500, L100.0100 ####[facility] [address] [place], [address] CREAT,SERUM Normal 0.70-1.20 [facility] Comment on above: Result Comment: Canc elled via OM: MD Ordered Performed By: #### L 500.2500, L100.0100 ####[facility] [address] [place], [address] eGFR Normal >60 [facility] Comment on above: Result Comment: Canc elled via OM: MD Ordered Performed By: #### L 500.2500, L100.0100 ####[facility] [address] [place], [address] GAP Normal 5-15 [facility] Comment on above: Result Comment: Canc elled via OM: MD Ordered Performed By: #### L 500.2500, L100.0100 ####[facility] [address] [place], [address] GLU Normal 70-99 [facility] Comment on above: Result Comment: Canc elled via OM: MD Ordered Performed By: #### L 500.2500, L100.0100 ####[facility] [address] [place], [address] Potassium Normal 3.3-5.1 [facility] Comment on above: Result Comment: Canc elled via OM: MD Ordered Performed By: #### L 500.2500, L100.0100 ####[facility] [address] [place], [address] Basic Metabolic Profile (BMP) Normal 133-145 [facility] Comment on above: Result Comment: Canc elled via OM: MD Ordered Performed By: #### L 500.2500, L100.0100 ####[facility] [address] [place], [address] CBC W/Diff, Automatedon 07-0 5-2025 Absolute Neut Normal 2.0-7.7 [facility] Comment on above: Result Comment: Canc elled via OM: MD Ordered Performed By: #### L 500.2500, L100.0100 ####[facility] [address] [place], [address] HCT Normal 40-54 [facility] Comment on above: Result Comment: Canc elled via OM: MD Ordered Performed By: #### L 500.2500, L100.0100 ####[facility] [address] [place], [address] HGB Normal 13.0-16.5 [facility] Comment on above: Result Comment: Canc elled via OM: MD Ordered Performed By: #### L 500.2500, L100.0100 ####[facility] [address] [place], [address] MCH Normal 27.0-32.0 [facility] Comment on above: Result Comment: Canc elled via OM: MD Ordered Performed By: #### L 500.2500, L100.0100 ####[facility] [address] [place], [address] MCHC Normal 32-36 [facility] Comment on above: Result Comment: Canc elled via OM: MD Ordered Performed By: #### L 500.2500, L100.0100 ####[facility] [address] [place], [address] MCV Normal 80-94 [facility] Comment on above: Result Comment: Canc elled via OM: MD Ordered Performed By: #### L 500.2500, L100.0100 ####[facility] [address] [place], [address] NEUT% Normal 47-70 [facility] Comment on above: Result Comment: Canc elled via OM: MD Ordered Performed By: #### L 500.2500, L100.0100 ####[facility] [address] [place], [address] PLT Normal 150-450 [facility] Comment on above: Result Comment: Canc elled via OM: MD Ordered Performed By: #### L 500.2500, L100.0100 ####[facility] [address] [place], [address] RBC Normal 4.6-6.2 [facility] Comment on above: Result Comment: Canc elled via OM: MD Ordered Performed By: #### L 500.2500, L100.0100 ####[facility] [address] [place], [address] RDW CV Normal 11.6-14.6 [facility] Comment on above: Result Comment: Canc elled via OM: MD Ordered Performed By: #### L 500.2500, L100.0100 ####[facility] [address] [place], [address] RDW SD Normal 35.1-43.9 [facility] Comment on above: Result Comment: Canc elled via OM: MD Ordered Performed By: #### L 500.2500, L100.0100 ####[facility] [address] [place], [address] WBC Normal 4.4-11.0 [facility] Comment on above: Result Comment: Canc elled via OM: MD Ordered Performed By: #### L 500.2500, L100.0100 ####[facility] [address] [place], [address] CBC panel Auto (Bld)on 11-24 Erythrocyte distribution width (RBC) [Ratio] 15.7 % High 11.5-15.0 [facility] Comment on above: Order Comment: Speci men Type: BLOOD SPECIMENOrdering Facility: [facility] Address: [address] [place], [place] [address] Performed By: #### 5 8410-2 ####[facility] LABCLIA [id number] [place] [address] [place] Hematocrit (Bld) [Volume fraction] 32.8 % Low 39.0-51.0 [facility] Comment on above: Order Comment: Speci men Type: BLOOD SPECIMENOrdering Facility: [facility] Address: [address] [place] [address] Performed By: #### 5 8410-2 ####[facility] LABCLIA [id number] [address] [address] [place] Hemoglobin (Bld) [Mass/Vol] 10.8 g/dL Low 13.0-17.0 [facility] Comment on above: Order Comment: Speci men Type: BLOOD SPECIMENOrdering Facility: [facility] Address: [address] [place] [address] Performed By: #### 5 8410-2 ####[facility] LABIA [id number] [place] [address] [place] MCH (RBC) [Entitic mass] 28.5 pg Normal 26.0-34.0 [facility] Comment on above: Order Comment: Speci men Type: BLOOD SPECIMENOrdering Facility: [facility] Address: [address] [place] [address] Performed By: #### 5 8410-2 ####[facility] LABIA [id number] [place] [address] [place] MCHC (RBC) [Mass/Vol] 32.9 g/dL Normal 30.5-36.0 [facility] Comment on above: Order Comment: Speci men Type: BLOOD SPECIMENOrdering Facility: [facility] Address: [address] [place] [address] Performed By: #### 5 8410-2 ####[facility] [id number] [place] [address] [place] MCV (RBC) [Entitic vol] 86.5 fL Normal 80.0-100.0 [facility] Comment on above: Order Comment: Speci men Type: BLOOD SPECIMENOrdering Facility: [facility] Address: [address] [place] [address] Performed By: #### 5 8410-2 ####[facility] LABIA [id number] [place] [address] [place] Nucleated RBC (Bld) [#/Vol] 10*3/uL Normal <0.01 [facility] Comment on above: Order Comment: Speci men Type: BLOOD SPECIMENOrdering Facility: [facility] Address: [address] [place] [address] Performed By: #### 5 8410-2 ####[facility] LABCLIA [id number] [place] [id number] [place] Platelet mean volume (Bld) [Entitic vol] 11.5 fL Normal 9.0-12.7 [facility] Comment on above: Order Comment: Speci men Type: BLOOD SPECIMENOrdering Facility: [facility] Address: [address] [place] [address] Performed By: #### 5 8410-2 ####[facility] LABCLIA [id number] [place] [address] [place] Platelets (Bld) [#/Vol] 152 10*3/uL Normal 150-400 [facility] Comment on above: Order Comment: Speci men Type: BLOOD SPECIMENOrdering Facility: [facility] Address: [address] [place] [address] Performed By: #### 5 8410-2 ####[facility] LABCLIA [id number] [place] [address] [place] RBC (Bld) [#/Vol] 3.79 10*6/uL Low 4.20-6.00 [facility] Comment on above: Order Comment: Speci men Type: BLOOD SPECIMENOrdering Facility: [facility] Address: [address] [place] [address] Performed By: #### 5 8410-2 ####[facility] LABCLIA [id number] [place] [id number] [place] WBC (Bld) [#/Vol] 8.79 10*3/uL Normal 3.70-11.00 [facility] Comment on above: Order Comment: Speci men Type: BLOOD SPECIMENOrdering Facility: [facility] Address: [address] [place] [address] Performed By: #### 5 8410-2 ####[facility] LABCLIA [id number] [address] [place] [address] [place] Comprehensive metabolic 2000 panelon 11-24-2024 Albumin [Mass/Vol] 3.3 g/dL Low 3.9-4.9 [facility] Comment on above: Order Comment: Speci men Type: BLOOD SPECIMENOrdering Facility: [facility] Address: [address] [place] [address] Performed By: #### 1 9123-9, 88257-8, 2777-1 ####[facility] LABCLIA [id number] [place] [id number] [place] ALP [Catalytic activity/Vol] 64 U/L Normal 38-113 [facility] Comment on above: Order Comment: Speci men Type: BLOOD SPECIMENOrdering Facility: [facility] Address: [address] [place] [address] Performed By: #### 1 9123-9, 96079-7, 2777-1 ####[facility] LABCLIA [id number] [place] [address] [place] ALT [Catalytic activity/Vol] 35 U/L Normal 10-54 [facility] Comment on above: Order Comment: Speci men Type: BLOOD SPECIMENOrdering Facility: [facility] Address: [address] [place] [address] Performed By: #### 1 9123-9, 56075-4, 2777-1 ####[facility] LABCLIA [id number] [place] [id number] [place] Anion gap [Moles/Vol] 16 mmol/L High 8-15 [facility] Comment on above: Order Comment: Speci men Type: BLOOD SPECIMENOrdering Facility: [facility] Address: [address] [place] [address] Performed By: #### 1 9123-9, 59954-6, 2777-1 ####[facility] LABCLIA [id number] [address] [address] [place] AST [Catalytic activity/Vol] 14 U/L Normal 14-40 [facility] Comment on above: Order Comment: Speci men Type: BLOOD SPECIMENOrdering Facility: [facility] Address: [address] [place] [address] Performed By: #### 1 9123-9, 45331-9, 2777-1 ####[facility] LABCLIA [id number] [place] [address] [place] Bilirubin [Mass/Vol] 0.2 mg/dL Normal 0.2-1.3 [facility] Comment on above: Order Comment: Speci men Type: BLOOD SPECIMENOrdering Facility: [facility] Address: [address] [place] [address] Performed By: #### 1 9123-9, 23574-3, 2777- ####[facility] LABCLIA [id number] [place] [address] [place] Calcium [Mass/Vol] 9.1 mg/dL Normal 8.5-10.2 [facility] Comment on above: Order Comment: Speci men Type: BLOOD SPECIMENOrdering Facility: [facility] Address: [address] [place] [address] Performed By: #### 1 9123-9, 02993-2, 2777- ####[facility] LABCLIA [id number] [place] [address] [place] Chloride [Moles/Vol] 93 mmol/L Low 98-107 [facility] Comment on above: Order Comment: Speci men Type: BLOOD SPECIMENOrdering Facility: [facility] Address: [address] [place] [address] Performed By: #### 1 9123-9, 74428-7, 2777-1 ####[facility] LABCLIA [id number] [place] [id number] [place] CO2 [Moles/Vol] 27 mmol/L Normal 22-30 [facility] Comment on above: Order Comment: Speci men Type: BLOOD SPECIMENOrdering Facility: [facility] Address: [address] [place] [address] Performed By: #### 1 9123-9, 82114-0, 2776-05 ####[facility] LABCLIA [id number] [place] [id number] [place] Creatinine [Mass/Vol] 4.46 mg/dL High 0.73-1.22 [facility] Comment on above: Order Comment: Speci men Type: BLOOD SPECIMENOrdering Facility: [facility] Address: [address] [place] [address] Performed By: #### 1 239, , 2776-05 ####[facility] LABCLIA [id number] [place] [address] [place] Creatinine and Glomerular filtration rate.predicted panel (S/P/Bld) 12 mL/min/1.73m??? Low >=60 [facility] Comment on above: Order Comment: Speci men Type: BLOOD SPECIMENOrdering Facility: [facility] Address: [address] [place] [address] Result Comment: Tessa mated Glomerular Filtration Rate [...] actual GFR. Performed By: #### 1 9123-9, 34042-2, 2776-05 ####[facility] LABCLIA [id number] [place] [id number] [place] Glucose [Mass/Vol] 118 mg/dL High 74-99 [facility] Comment on above: Order Comment: Speci men Type: BLOOD SPECIMENOrdering Facility: [facility] Address: [address] [place] [address] [place] [address] Result Comment: The [place] [employer] (ADA) provides guidance for cutoff [...] Standards of Medical Care in Diabetes 2016, [place] [employer]. Diabetes Care. 2016.39(Suppl 1). Performed By: #### 1 9123-9, 07044-5, 2776-05 ####[facility] LABCLIA [id number] [place] [address] [place] Potassium [Moles/Vol] 4.2 mmol/L Normal 3.7-5.1 [facility] Comment on above: Order Comment: Speci men Type: BLOOD SPECIMENOrdering Facility: [facility] Address: [address] [place] [address] Performed By: #### 1 9123-9, 02983-9, 2776-05 ####[facility] LABIA [id number] [place] [id number] [place] Protein [Mass/Vol] 6.2 g/dL Low 6.3-8.0 [facility] Comment on above: Order Comment: Speci men Type: BLOOD SPECIMENOrdering Facility: [facility] Address: [address] [place] [address] Performed By: #### 1 9123-9, 10652-7, 2776-05 ####[facility] LABIA [id number] [address] [address] [place] Sodium [Moles/Vol] 136 mmol/L Normal 136-144 [facility] Comment on above: Order Comment: Speci men Type: BLOOD SPECIMENOrdering Facility: [facility] Address: [address] [place], [place] [address] Performed By: #### 1 9123-9, 28357-9, 2777-1 ####[facility] LABCLIA [id number] [address] [address] [place] Urea nitrogen [Mass/Vol] 49 mg/dL High 9-24 [facility] Comment on above: Order Comment: Speci men Type: BLOOD SPECIMENOrdering Facility: [facility] Address: [address] [place] [address] Performed By: #### 1 9123-9, 94447-2, 2777-1 ####[facility] LABIA [id number] [place] [id number] [place] Gas and Carbon monoxide pane l (BldV)on 11-24-2024 BASE DEFICIT, VENOUS Normal [facility] Comment on above: Order Comment: Speci men Type: VENOUS BLOOD SPECIMENOrdering Facility: [facility] Address: [address] [place] [address] Result Comment: Vj brown RN Canceled by Clinician Performed By: #### 2 4344-4 ####[facility] LABIA [id number] [place] [address] [place] Base excess Calc (BldV) [Moles/Vol] Normal 0-2 [facility] Comment on above: Order Comment: Speci men Type: VENOUS BLOOD SPECIMENOrdering Facility: [facility] Address: [address] [place], [place] [address] Result Comment: Vj brown RN Canceled by ClinicianCorrected result: Previously reported as 4 mmol/L on 11/24/2024 at 7:44 AM EDT. Performed By: #### 2 4344-4 ####[facility] LABCLIA [id number] [address] [place] [address] [place] Calcium.ionized (Bld) [Mass/Vol] Normal 1.08-1.30 [facility] Comment on above: Order Comment: Speci men Type: VENOUS BLOOD SPECIMENOrdering Facility: [facility] Address: [address] [place] [address] Result Comment: Vj brown RN Canceled by ClinicianCorrected result: Previously reported as 1.14 mmol/L on 11/24/2024 at 7:44 AM EDT. Performed By: #### 2 4344-4 ####[facility] LABIA [id number] [place] [address] [place] Calcium.ionized adjusted to pH 7.4 (BldA) [Moles/Vol] Normal 1.08-1.30 [facility] Comment on above: Order Comment: Speci men Type: VENOUS BLOOD SPECIMENOrdering Facility: [facility] Address: [address] [place] [address] Result Comment: Vj brown RN Canceled by ClinicianCorrected result: Previously reported as 1.15 mmol/L on 11/24/2024 at 7:44 AM EDT. Performed By: #### 2 4344-4 ####[facility] LABIA [id number] [place] [address] [place] Carboxyhemoglobin (BldV) [Mass fraction] Normal 0.0-2.0 [facility] Comment on above: Order Comment: Speci men Type: VENOUS BLOOD SPECIMENOrdering Facility: [facility] Address: [address] [place] [address] Result Comment: Vj brown RN Canceled by ClinicianCorrected result: Previously reported as 1.2 % on 11/24/2024 at 7:44 AM EDT. Performed By: #### 2 4344-4 ####[facility] LABIA [id number] [place] [address] [place] CO2 (BldV) [Partial pressure] Normal 42-55 [facility] Comment on above: Order Comment: Speci men Type: VENOUS BLOOD SPECIMENOrdering Facility: [facility] Address: [address] [place] [address] Result Comment: Vj brown RN Canceled by ClinicianCorrected result: Previously reported as 46 mmHg on 11/24/2024 at 7:44 AM EDT. Performed By: #### 2 4344-4 ####[facility] LABCLIA [id number] [address] [address] [place] CO2 adjusted to patient's actual temperature (BldV) [Partial pressure] Normal 42-55 [facility] Comment on above: Order Comment: Speci men Type: VENOUS BLOOD SPECIMENOrdering Facility: [facility] Address: [address] [place] [address] Result Comment: Vj brown RN Canceled by ClinicianCorrected result: Previously reported as 46 mmHg on 11/24/2024 at 7:44 AM EDT. Performed By: #### 2 4344-4 ####[facility] LABCLIA [id number] [place] [address] [place] Glucose [Mass/Vol] Normal 60-105 [facility] Comment on above: Order Comment: Speci men Type: VENOUS BLOOD SPECIMENOrdering Facility: [facility] Address: [address] [place] [address] Result Comment: Vj brown RN Canceled by ClinicianCorrected result: Previously reported as 78 mg/dL on 11/24/2024 at 7:44 AM EDT. Performed By: #### 2 4344-4 ####[facility] LABIA [id number] [place] [id number] [place] HCO3 (Bld) [Moles/Vol] Normal 24-28 [facility] Comment on above: Order Comment: Speci men Type: VENOUS BLOOD SPECIMENOrdering Facility: [facility] Address: [address] [place] [address] Result Comment: Vj brown RN Canceled by ClinicianCorrected result: Previously reported as 29 mmol/L on 11/24/2024 at 7:44 AM EDT. Performed By: #### 2 4344-4 ####[facility] LABCLIA [id number] [address] STATES OF [facility] Hematocrit (Bld) [Volume fraction] Normal 39.0-51.0 [facility] Comment on above: Order Comment: Speci men Type: VENOUS BLOOD SPECIMENOrdering Facility: [facility] Address: [address] [place] [address] Result Comment: Vj brown RN Canceled by ClinicianCorrected result: Previously reported as 34.7 % on 11/24/2024 at 7:44 AM EDT. Performed By: #### 2 4344-4 ####[facility] LABIA [id number] [address] Hemoglobin (Bld) [Mass/Vol] Normal 13.0-17.0 [facility] Comment on above: Order Comment: Speci men Type: VENOUS BLOOD SPECIMENOrdering Facility: [facility] Address: [address] [place] [address] Result Comment: Vj brown RN Canceled by ClinicianCorrected result: Previously reported as 11.2 g/dL on 11/24/2024 at 7:44 AM EDT. Performed By: #### 2 4344-4 ####[facility] LABIA [id number] [address] STATES OF [facility] Lactate [Moles/Vol] Normal 0.5-2.2 [facility] Comment on above: Order Comment: Speci men Type: VENOUS BLOOD SPECIMENOrdering Facility: [facility] Address: [address] [place] [address] Result Comment: Vj brown RN Canceled by ClinicianCorrected result: Previously reported as 0.9 mmol/L on 11/24/2024 at 7:44 AM EDT. Performed By: #### 2 4344-4 ####[facility] LABCLIA [id number] [place] [id number] [facility] [place] Methemoglobin (Bld) [Mass fraction] Normal 0.0-1.5 [facility] Comment on above: Order Comment: Speci men Type: VENOUS BLOOD SPECIMENOrdering Facility: [facility] Address: [address] [place] [address] Result Comment: Vj brown RN Canceled by ClinicianCorrected result: Previously reported as 1.0 % on 11/24/2024 at 7:44 AM EDT. Performed By: #### 2 4344-4 ####[facility] LABCLIA [id number] [place] [address] [place] O2 THERAPY RA=Room Air Normal [facility] Comment on above: Order Comment: Speci men Type: VENOUS BLOOD SPECIMENOrdering Facility: [facility] Address: [address] [place] [address] Performed By: #### 2 4344-4 ####[facility] LABCLIA [id number] [address] [place] Oxygen (BldV) [Partial pressure] Normal 35-45 [facility] Comment on above: Order Comment: Speci men Type: VENOUS BLOOD SPECIMENOrdering Facility: [facility] Address: [address] [place] [address] Result Comment: Vj brown RN Canceled by ClinicianCorrected result: Previously reported as 85 mmHg on 11/24/2024 at 7:44 AM EDT. Performed By: #### 2 4344-4 ####[facility] LABCLIA [id number] [place] [id number] [place] Oxygen adjusted to patient's actual temperature (BldV) [Partial pressure] Normal 35-45 [facility] Comment on above: Order Comment: Speci men Type: VENOUS BLOOD SPECIMENOrdering Facility: [facility] Address: [address] [place] [address] Result Comment: Vj brown RN Canceled by ClinicianCorrected result: Previously reported as 84 mmHg on 11/24/2024 at 7:44 AM EDT. Performed By: #### 2 4344-4 ####[facility] LABCLIA [id number] [address] [address] [place] Oxygen saturation in Venous blood Normal 60-85 [facility] Comment on above: Order Comment: Speci men Type: VENOUS BLOOD SPECIMENOrdering Facility: [facility] Address: [address] [place] [address] Result Comment: Vj brown RN Canceled by ClinicianCorrected result: Previously reported as 96 % on 11/24/2024 at 7:44 AM EDT. Performed By: #### 2 4344-4 ####[facility] LABCLIA [id number] [address] [address] [place] Oxyhemoglobin (BldV) [Mass fraction] Normal 60-85 [facility] Comment on above: Order Comment: Speci men Type: VENOUS BLOOD SPECIMENOrdering Facility: [facility] Address: [address] [place] [address] Result Comment: Vj brown RN Canceled by ClinicianCorrected result: Previously reported as 94 % on 11/24/2024 at 7:44 AM EDT. Performed By: #### 2 4344-4 ####[facility] LABCLIA [id number] [address] [address] [place] pH (BldV) Normal 7.32-7.42 [facility] Comment on above: Order Comment: Speci men Type: VENOUS BLOOD SPECIMENOrdering Facility: [facility] Address: [address] [place], [place] [address] Result Comment: Vj brown RN Canceled by ClinicianCorrected result: Previously reported as 7.42 on 11/24/2024 at 7:44 AM EDT. Performed By: #### 2 4344-4 ####[facility] LABCLIA [id number] [address] [place] [address] [place] pH adjusted to patient's actual temperature (BldV) Normal 7.32-7.42 [facility] Comment on above: Order Comment: Speci men Type: VENOUS BLOOD SPECIMENOrdering Facility: [facility] Address: [address] [place] [address] Result Comment: Vj brown RN Canceled by ClinicianCorrected result: Previously reported as 7.42 on 11/24/2024 at 7:44 AM EDT. Performed By: #### 2 4344-4 ####[facility] LABIA [id number] [place] [id number] [place] Potassium [Moles/Vol] Normal 3.5-5.0 [facility] Comment on above: Order Comment: Speci men Type: VENOUS BLOOD SPECIMENOrdering Facility: [facility] Address: [address] [place] [address] Result Comment: Vj brown RN Canceled by ClinicianCorrected result: Previously reported as 4.4 mmol/L on 11/24/2024 at 7:44 AM EDT. Performed By: #### 2 4344-4 ####[facility] LABIA [id number] [place] [id number] [place] Sodium [Moles/Vol] Normal 136-144 [facility] Comment on above: Order Comment: Speci men Type: VENOUS BLOOD SPECIMENOrdering Facility: [facility] Address: [address] [place] [address] Result Comment: Vj brown RN Canceled by ClinicianCorrected result: Previously reported as 134 mmol/L on 11/24/2024 at 7:44 AM EDT. Performed By: #### 2 4344-4 ####[facility] LABIA [id number] [address] [address] [place] TEMPERATURE, BODY Normal [facility] Comment on above: Order Comment: Speci men Type: VENOUS BLOOD SPECIMENOrdering Facility: [facility] Address: [address] [place], [place] [address] Result Comment: Vj brown RN Canceled by ClinicianCorrected result: Previously reported as 36.9 C on 11/24/2024 at 7:44 AM EDT. Performed By: #### 2 4344-4 ####[facility] LABCLIA [id number] [address] [address] [place] Magnesium SerPl-ncon 11-24 Magnesium [Mass/Vol] 2.2 mg/dL Normal 1.7-2.3 [facility] Comment on above: Order Comment: Speci men Type: BLOOD SPECIMENOrdering Facility: [facility] Address: [address] [place] [address] Performed By: #### 1 9123-9, 99843-5, 2777-1 ####[facility] LABIA [id number] [place] [id number] [place] Phosphate SerPl-ncon 11-24 Phosphate [Mass/Vol] 6.3 mg/dL High 2.7-4.8 [facility] Comment on above: Order Comment: Speci men Type: BLOOD SPECIMENOrdering Facility: [facility] Address: [address] [place] [address] Performed By: #### 1 9123-9, 12212-4, 2777-1 ####[facility] LABIA [id number] [place] [id number] [facility] [place] THERAPY NTon 11-24-2024 THERAPY NT Normal [facility] aPTT PPPon 11-24-2024 aPTT Coag (PPP) [Time] 32.9 s High 23.0-32.4 [facility] Comment on above: Order Comment: Speci men Type: BLOOD SPECIMENOrdering Facility: [facility] Address: [address] [place] [address] Performed By: #### 1 4979-9 ####[facility] LABIA [id number] [place] [id number] [place] ARTERIAL BLOOD GASESon 11-23 Base excess Calc (Bld) [Moles/Vol] 7 mmol/L High 0-2 [facility] Comment on above: Order Comment: Speci men Type: ARTERIAL BLOOD SPECIMENOrdering Facility: [facility] Address: [address] [place] [address] Performed By: #### A LLBG ####[facility] LABCLIA [id number] [place] [address] [place] Body temperature 97.7 [degF] Normal [facility] Comment on above: Order Comment: Speci men Type: ARTERIAL BLOOD SPECIMENOrdering Facility: [facility] Address: [address] [place] [address] Performed By: #### A LLBG ####[facility] LABCLIA [id number] [place] [address] [place] Calcium.ionized (Bld) [Mass/Vol] 1.06 mmol/L Low 1.08-1.30 [facility] Comment on above: Order Comment: Speci men Type: ARTERIAL BLOOD SPECIMENOrdering Facility: [facility] Address: [address] [place] [address] Performed By: #### A LLBG ####[facility] LABIA [id number] [place] [address] [place] Calcium.ionized adjusted to pH 7.4 (BldA) [Moles/Vol] 1.11 mmol/L Normal 1.08-1.30 [facility] Comment on above: Order Comment: Speci men Type: ARTERIAL BLOOD SPECIMENOrdering Facility: [facility] Address: [address] [place] [address] Performed By: #### A LLBG ####[facility] LABCLIA [id number] [place] [id number] [place] Carboxyhemoglobin (BldA) [Mass fraction] 0.5 % Normal 0.0-2.0 [facility] Comment on above: Order Comment: Speci men Type: ARTERIAL BLOOD SPECIMENOrdering Facility: [facility] Address: [address] [place] [address] Result Comment: Carb oxyhemoglobin Reference Range for Smokers: 2.0-8.0% Performed By: #### A LLBG ####[facility] LABCLIA [id number] [place] [address] [place] CO2 (Bld) [Partial pressure] 39 mm Hg Normal 36-46 [facility] Comment on above: Order Comment: Speci men Type: ARTERIAL BLOOD SPECIMENOrdering Facility: [facility] Address: [address] [place] [address] Performed By: #### A LLBG ####[facility] LABIA [id number] [place] [address] [place] CO2 adjusted to patient's actual temperature (Bld) [Partial pressure] 38 mmHg Normal 36-46 [facility] Comment on above: Order Comment: Speci men Type: ARTERIAL BLOOD SPECIMENOrdering Facility: [facility] Address: [address] [place] [address] Performed By: #### A LLBG ####[facility] LABIA [id number] [place] [address] [place] Glucose [Mass/Vol] 144 mg/dL High 60-105 [facility] Comment on above: Order Comment: Speci men Type: ARTERIAL BLOOD SPECIMENOrdering Facility: [facility] Address: [address] [place] [place] [address] Performed By: #### A LLBG ####[facility] LABIA [id number] [place] [address] [place] HCO3 (Bld) [Moles/Vol] 30 mmol/L High 22-26 [facility] Comment on above: Order Comment: Speci men Type: ARTERIAL BLOOD SPECIMENOrdering Facility: [facility] Address: [address] [place] [place] [address] Performed By: #### A LLBG ####[facility] LABCLIA [id number] [place] [id number] [place] Hematocrit (Bld) [Volume fraction] 34.1 % Low 39.0-51.0 [facility] Comment on above: Order Comment: Speci men Type: ARTERIAL BLOOD SPECIMENOrdering Facility: [facility] Address: [address] [place] [address] Performed By: #### A LLBG ####[facility] LABCLIA [id number] [place] [address] [place] Hemoglobin (Bld) [Mass/Vol] 11.1 g/dL Low 13.0-17.0 [facility] Comment on above: Order Comment: Speci men Type: ARTERIAL BLOOD SPECIMENOrdering Facility: [facility] Address: [address] [place] [address] Performed By: #### A LLBG ####[facility] LABIA [id number] [place] [address] [place] Lactate [Moles/Vol] 1.5 mmol/L Normal 0.5-2.2 [facility] Comment on above: Order Comment: Speci men Type: ARTERIAL BLOOD SPECIMENOrdering Facility: [facility] Address: [address] [place] [address] Performed By: #### A LLBG ####[facility] LABIA [id number] [place] [address] [place] Methemoglobin (Bld) [Mass fraction] 1.2 % Normal 0.0-1.5 [facility] Comment on above: Order Comment: Speci men Type: ARTERIAL BLOOD SPECIMENOrdering Facility: [facility] Address: [address] [place] [address] Performed By: #### A LLBG ####[facility] LABIA [id number] [place] [id number] [place] O2 THERAPY RA=Room Air Normal [facility] Comment on above: Order Comment: Speci men Type: ARTERIAL BLOOD SPECIMENOrdering Facility: [facility] Address: [address] [place] [id number] Performed By: #### A LLBG ####[facility] LABCLIA [id number] [address] [address] [place] Oxygen (Bld) [Partial pressure] 105 mm Hg High 85-95 [facility] Comment on above: Order Comment: Speci men Type: ARTERIAL BLOOD SPECIMENOrdering Facility: [facility] Address: [address] [place], [place] [address] Performed By: #### A LLBG ####[facility] LABCLIA [id number] [place] [id number] [place] Oxygen adjusted to patient's actual temperature (Bld) [Partial pressure] 102 mmHg High 85-95 [facility] Comment on above: Order Comment: Speci men Type: ARTERIAL BLOOD SPECIMENOrdering Facility: [facility] Address: [address] [place] [address] Performed By: #### A LLBG ####[facility] LABCLIA [id number] [place] [address] [place] Oxyhemoglobin (BldA) [Mass fraction] 95 % Normal 95-98 [facility] Comment on above: Order Comment: Speci men Type: ARTERIAL BLOOD SPECIMENOrdering Facility: [facility] Address: [address] [place], [place] [address] Performed By: #### A LLBG ####[facility] LABCLIA [id number] [address] [address] [place] pH (Bld) 7.50 [pH] High 7.35-7.45 [facility] Comment on above: Order Comment: Speci men Type: ARTERIAL BLOOD SPECIMENOrdering Facility: [facility] Address: [address] [place], [place] [address] Performed By: #### A LLBG ####[facility] LABCLIA [id number] [address] [address] [place] pH adjusted to patient's actual temperature (Bld) 7.51 High 7.35-7.45 [facility] Comment on above: Order Comment: Speci men Type: ARTERIAL BLOOD SPECIMENOrdering Facility: [facility] Address: [address] [place] [address] Performed By: #### A LLBG ####[facility] LABCLIA [id number] [place] [address] [place] PO2 / FIO2 RATIO 500 mmHg Normal >300 [facility] Comment on above: Order Comment: Speci men Type: ARTERIAL BLOOD SPECIMENOrdering Facility: [facility] Address: [address] [place] [address] Performed By: #### A LLBG ####[facility] LABIA [id number] [place] [address] [place] Potassium [Moles/Vol] 3.8 mmol/L Normal 3.5-5.0 [facility] Comment on above: Order Comment: Speci men Type: ARTERIAL BLOOD SPECIMENOrdering Facility: [facility] Address: [address] [place] [address] Performed By: #### A LLBG ####[facility] LABIA [id number] [place] [address] [place] Sodium [Moles/Vol] 133 mmol/L Low 136-144 [facility] Comment on above: Order Comment: Speci men Type: ARTERIAL BLOOD SPECIMENOrdering Facility: [facility] Address: [address] [place], [place] [address] Performed By: #### A LLBG ####[facility] LABCLIA [id number] [place] [id number] [place] BUN [facility] Urea nitrogen post dialysis [Mass/Vol] 34 mg/dL High 9-24 [facility] Comment on above: Order Comment: Speci men Type: BLOOD SPECIMENOrdering Facility: [facility] Address: [address] [place] [id number] Performed By: #### 1 1064-3 ####[facility] LABCLIA [id number] [address] [address] [place] BUN pre dial SerPl-mCncon Urea nitrogen pre dialysis [Mass/Vol] 103 mg/dL High 9-24 [facility] Comment on above: Order Comment: Speci men Type: BLOOD SPECIMENOrdering Facility: [facility] Address: [address] [place] [address] Performed By: #### 1 1065-0, 3024-7, 3016-3 ####[facility] LABCLIA [id number] [address] [place] Basic Metabolic Profile (BMP )on 11-23-2024 BUN Normal 4-19 [facility] Comment on above: Result Comment: Canc elled via OM: MD Ordered Performed By: #### L 500.2500, L100.0100 ####[facility] [address] [place], [address] BUN/CRE Normal 10-20 [facility] Comment on above: Result Comment: Canc elled via OM: MD Ordered Performed By: #### L 500.2500, L100.0100 ####[facility] [address] [place], [address] Calcium Normal 7.6-11.0 [facility] Comment on above: Result Comment: Canc elled via OM: MD Ordered Performed By: #### L 500.2500, L100.0100 ####[facility] [address] [place], [address] CL Normal 98-108 [facility] Comment on above: Result Comment: Canc elled via OM: MD Ordered Performed By: #### L 500.2500, L100.0100 ####[facility] [address] [place], [address] CO2 Normal 21.0-32.0 [facility] Comment on above: Result Comment: Canc elled via OM: MD Ordered Performed By: #### L 500.2500, L100.0100 ####[facility] [address] [place], [address] CREAT,SERUM Normal 0.70-1.20 [facility] Comment on above: Result Comment: Canc elled via OM: MD Ordered Performed By: #### L 500.2500, L100.0100 ####[facility] [address] [place], [address] eGFR Normal >60 [facility] Comment on above: Result Comment: Canc elled via OM: MD Ordered Performed By: #### L 500.2500, L100.0100 ####[facility] [address] [place], [address] GAP Normal 5-15 [facility] Comment on above: Result Comment: Canc elled via OM: MD Ordered Performed By: #### L 500.2500, L100.0100 ####[facility] [address] [place], [address] GLU Normal 70-99 [facility] Comment on above: Result Comment: Canc elled via OM: MD Ordered Performed By: #### L 500.2500, L100.0100 ####[facility] [address] [place], [address] Potassium Normal 3.3-5.1 [facility] Comment on above: Result Comment: Canc elled via OM: MD Ordered Performed By: #### L 500.2500, L100.0100 ####[facility] [address] [place], [address] Basic Metabolic Profile (BMP) Normal 133-145 [facility] Comment on above: Result Comment: Canc elled via OM: MD Ordered Performed By: #### L 500.2500, L100.0100 ####[facility] [address] [place], [address] CBC W/Diff, Automatedon 07-0 Absolute Neut Normal 2.0-7.7 [facility] Comment on above: Result Comment: Canc elled via OM: MD Ordered Performed By: #### L 500.2500, L100.0100 ####[facility] [address] [place], [address] HCT Normal 40-54 [facility] Comment on above: Result Comment: Canc elled via OM: MD Ordered Performed By: #### L 500.2500, L100.0100 ####[facility] [address] [place], [address] HGB Normal 13.0-16.5 [facility] Comment on above: Result Comment: Canc elled via OM: MD Ordered Performed By: #### L 500.2500, L100.0100 ####[facility] [address] [place], [address] MCH Normal 27.0-32.0 [facility] Comment on above: Result Comment: Canc elled via OM: MD Ordered Performed By: #### L 500.2500, L100.0100 ####[facility] [address] [place], [address] MCHC Normal 32-36 [facility] Comment on above: Result Comment: Canc elled via OM: MD Ordered Performed By: #### L 500.2500, L100.0100 ####[facility] [address] [place], [address] MCV Normal 80-94 [facility] Comment on above: Result Comment: Canc elled via OM: MD Ordered Performed By: #### L 500.2500, L100.0100 ####[facility] [address] [place], [address] NEUT% Normal 47-70 [facility] Comment on above: Result Comment: Canc elled via OM: MD Ordered Performed By: #### L 500.2500, L100.0100 ####[facility] [address] [place], [address] PLT Normal 150-450 [facility] Comment on above: Result Comment: Canc elled via OM: MD Ordered Performed By: #### L 500.2500, L100.0100 ####[facility] [address] [place], [address] RBC Normal 4.6-6.2 [facility] Comment on above: Result Comment: Canc elled via OM: MD Ordered Performed By: #### L 500.2500, L100.0100 ####[facility] [address] [place], [address] RDW CV Normal 11.6-14.6 [facility] Comment on above: Result Comment: Canc elled via OM: MD Ordered Performed By: #### L 500.2500, L100.0100 ####[facility] [address] [place], [address] RDW SD Normal 35.1-43.9 [facility] Comment on above: Result Comment: Canc elled via OM: MD Ordered Performed By: #### L 500.2500, L100.0100 ####[facility] [address] [place], [address] WBC Normal 4.4-11.0 [facility] Comment on above: Result Comment: Canc elled via OM: MD Ordered Performed By: #### L 500.2500, L100.0100 ####[facility] [address] [place], [address] CBC panel Auto (Bld)on 11-23 Erythrocyte distribution width (RBC) [Ratio] 16.1 % High 11.5-15.0 [facility] Comment on above: Order Comment: Speci men Type: BLOOD SPECIMENOrdering Facility: [facility] Address: [address] [place] [address] Performed By: #### 5 5454-3, 63565-1 ####[facility] LABCLIA [id number] [place] [address] [place] Hematocrit (Bld) [Volume fraction] 33.7 % Low 39.0-51.0 [facility] Comment on above: Order Comment: Speci men Type: BLOOD SPECIMENOrdering Facility: [facility] Address: [address] [place] [address] Performed By: #### 5 5454-3, 22794-9 ####[facility] LABCLIA [id number] [place] [address] [place] Hemoglobin (Bld) [Mass/Vol] 10.6 g/dL Low 13.0-17.0 [facility] Comment on above: Order Comment: Speci men Type: BLOOD SPECIMENOrdering Facility: [facility] Address: [address] [place] [address] Performed By: #### 5 5454-3, 50103-0 ####[facility] LABCLIA [id number] [place] [address] [place] MCH (RBC) [Entitic mass] 28.0 pg Normal 26.0-34.0 [facility] Comment on above: Order Comment: Speci men Type: BLOOD SPECIMENOrdering Facility: [facility] Address: [address] [place] [address] Performed By: #### 5 5454-3, 54933-3 ####[facility] LABCLIA [id number] [place] [id number] [place] MCHC (RBC) [Mass/Vol] 31.5 g/dL Normal 30.5-36.0 [facility] Comment on above: Order Comment: Speci men Type: BLOOD SPECIMENOrdering Facility: [facility] Address: [address] [place] [address] Performed By: #### 5 5454-3, 54561-2 ####[facility] LABCLIA [id number] [place] [id number] [place] MCV (RBC) [Entitic vol] 88.9 fL Normal 80.0-100.0 [facility] Comment on above: Order Comment: Speci men Type: BLOOD SPECIMENOrdering Facility: [facility] Address: [address] [place] [address] Performed By: #### 5 5454-3, 46443-4 ####[facility] LABIA [id number] [place] [address] [place] Nucleated RBC (Bld) [#/Vol] 10*3/uL Normal <0.01 [facility] Comment on above: Order Comment: Speci men Type: BLOOD SPECIMENOrdering Facility: [facility] Address: [address] [place] [address] Performed By: #### 5 5454-3, 34681-9 ####[facility] LABIA [id number] [place] [address] [place] Platelet mean volume (Bld) [Entitic vol] 11.8 fL Normal 9.0-12.7 [facility] Comment on above: Order Comment: Speci men Type: BLOOD SPECIMENOrdering Facility: [facility] Address: [address] [place] [address] Performed By: #### 5 5454-3, 50211-8 ####[facility] LABCLIA [id number] [place] [id number] [place] Platelets (Bld) [#/Vol] 144 10*3/uL Low 150-400 [facility] Comment on above: Order Comment: Speci men Type: BLOOD SPECIMENOrdering Facility: [facility] Address: [address] [place] [address] Performed By: #### 5 5454-3, 02428-9 ####[facility] LABCLIA [id number] [place] [address] [place] RBC (Bld) [#/Vol] 3.79 10*6/uL Low 4.20-6.00 [facility] Comment on above: Order Comment: Speci men Type: BLOOD SPECIMENOrdering Facility: [facility] Address: [address] [place] [address] Performed By: #### 5 5454-3, 38374-1 ####[facility] LABCLIA [id number] [place] [address] [place] WBC (Bld) [#/Vol] 9.87 10*3/uL Normal 3.70-11.00 [facility] Comment on above: Order Comment: Speci men Type: BLOOD SPECIMENOrdering Facility: [facility] Address: [address] [place] [address] Performed By: #### 5 5454-3, 66950-4 ####[facility] LABCLIA [id number] [address] [place] CONFIRM BLOOD TYPEon 025 ABO A Normal [facility] Comment on above: Order Comment: Speci men Type: BLOOD SPECIMENOrdering Facility: [facility] Address: [address] [place] [address] Performed By: #### C ONABO ####[facility] BLOOD BANKCLIA [id number] [place] [address] [place] Rh Nom (Bld) Positive Normal [facility] Comment on above: Order Comment: Speci men Type: BLOOD SPECIMENOrdering Facility: [facility] Address: [address] [place] [address] Performed By: #### C ONABO ####[facility] BLOOD BANKIA [id number] [address] [address] [place] CONSULTon 11-23-2024 CONSULT Normal [facility] CONSULT Normal [facility] Comprehensive metabolic 2000 panelon 11-23-2024 Albumin [Mass/Vol] 3.7 g/dL Low 3.9-4.9 [facility] Comment on above: Order Comment: Speci men Type: BLOOD SPECIMENOrdering Facility: [facility] Address: [address] [place] [address] Performed By: #### 2 777-1, LIPNF, 2276-4, 85578-0, 45179-7, 68848-6 ####[facility] LABIA [id number] [place] [id number] [place] ALP [Catalytic activity/Vol] 68 U/L Normal 38-113 [facility] Comment on above: Order Comment: Speci men Type: BLOOD SPECIMENOrdering Facility: [facility] Address: [address] [place] [address] Performed By: #### 2 777-1, LIPNF, 6-4, 78833-0, 90936-6, 46512-2 ####[facility] LABIA [id number] [address] [address] [place] ALT [Catalytic activity/Vol] 43 U/L Normal 10-54 [facility] Comment on above: Order Comment: Speci men Type: BLOOD SPECIMENOrdering Facility: [facility] Address: [address] [place], [place] [address] Performed By: #### 2 777-1, LIPNF, 2276-4, 03168-8, 34542-4, 72089-6 ####[facility] LABIA [id number] [address] [address] [place] Anion gap [Moles/Vol] 23 mmol/L High 8-15 [facility] Comment on above: Order Comment: Speci men Type: BLOOD SPECIMENOrdering Facility: [facility] Address: [address] [place], [place] [address] Performed By: #### 2 777-1, LIPNF, 2275-4, 37939-5, 61773-0, 84543-7 ####[facility] LABCLIA [id number] [address] [place] [address] [place] AST [Catalytic activity/Vol] 17 U/L Normal 14-40 [facility] Comment on above: Order Comment: Speci men Type: BLOOD SPECIMENOrdering Facility: [facility] Address: [address] [place], [place] [address] Performed By: #### 2 777-1, LIPNF, 2275-4, 63975-7, 76570-0, 80625-4 ####[facility] LABCLIA [id number] [address] [place] [address] [place] Bilirubin [Mass/Vol] 0.2 mg/dL Normal 0.2-1.3 [facility] Comment on above: Order Comment: Speci men Type: BLOOD SPECIMENOrdering Facility: [facility] Address: [address] [place] [address] Performed By: #### 2 777-1, LIPNF, 6-4, 08276-3, 61767-3, 64373-6 ####[facility] LABCLIA [id number] [address] [place] [address] [place] Calcium [Mass/Vol] 9.3 mg/dL Normal 8.5-10.2 [facility] Comment on above: Order Comment: Speci men Type: BLOOD SPECIMENOrdering Facility: [facility] Address: [address] [place], [place] [address] Performed By: #### 2 777-1, LIPNF, 6-4, 48759-9, 51459-8, 15006-1 ####[facility] LABCLIA [id number] [address] [place] [address] [place] Chloride [Moles/Vol] 86 mmol/L Low 98-107 [facility] Comment on above: Order Comment: Speci men Type: BLOOD SPECIMENOrdering Facility: [facility] Address: [address] [place] [address] Performed By: #### 2 777-1, LIPNF, 2276-4, 98421-0, 31810-5, 84836-0 ####[facility] LABIA [id number] [place] [id number] [place] CO2 [Moles/Vol] 21 mmol/L Low 22-30 [facility] Comment on above: Order Comment: Speci men Type: BLOOD SPECIMENOrdering Facility: [facility] Address: [address] [place] [address] Performed By: #### 2 777-1, LIPNF, 2276-4, 76623-7, 16910-1, 89742-7 ####[facility] [id number] [place] [id number] [place] Creatinine [Mass/Vol] 7.48 mg/dL High 0.73-1.22 [facility] Comment on above: Order Comment: Speci men Type: BLOOD SPECIMENOrdering Facility: [facility] Address: [address] [place] [address] Performed By: #### 2 777-1, LIPNF, 2276-4, 32879-4, 98169-0, 99607-1 ####[facility] [id number] [place] [id number] [place] Creatinine and Glomerular filtration rate.predicted panel (S/P/Bld) 7 mL/min/1.73m??? Low >=60 [facility] Comment on above: Order Comment: Speci men Type: BLOOD SPECIMENOrdering Facility: [facility] Address: [address] [place] [address] Result Comment: Tessa mated Glomerular Filtration Rate [...] Performed By: #### 2 777-1, LIPNF, 2276-4, 36621-0, 97626-7, 72096-3 ####[facility] LABCLIA [id number] [address] [address] [place] Glucose [Mass/Vol] 215 mg/dL High 74-99 [facility] Comment on above: Order Comment: Speci men Type: BLOOD SPECIMENOrdering Facility: [facility] Address: [address] [place] [address] Result Comment: The [place] Diabetes Association (ADA) provides guidance for cutoff [...] Standards of Medical Care in Diabetes 2016, [place] [employer]. Diabetes Care. 2016.39(Suppl 1). Performed By: #### 2 777-1, LIPNF, 6-4, 97675-0, 31985-9, 97382-2 ####[facility] LABCLIA [id number] [address] [address] [place] Potassium [Moles/Vol] 5.4 mmol/L High 3.7-5.1 [facility] Comment on above: Order Comment: Speci men Type: BLOOD SPECIMENOrdering Facility: [facility] Address: [address] [place] [address] Performed By: #### 2 777-1, LIPNF, 6-4, 60656-0, 23679-8, 96801-8 ####[facility] LABCLIA [id number] [address] [address] [place] Protein [Mass/Vol] 6.9 g/dL Normal 6.3-8.0 [facility] Comment on above: Order Comment: Speci men Type: BLOOD SPECIMENOrdering Facility: [facility] Address: [address] [place] [address] Performed By: #### 2 777-1, LIPNF, 2276-4, 69583-3, 91243-6, 81862-6 ####[facility] LABIA [id number] [place] [id number] [place] Sodium [Moles/Vol] 130 mmol/L Low 136-144 [facility] Comment on above: Order Comment: Speci men Type: BLOOD SPECIMENOrdering Facility: [facility] Address: [address] [place] [address] Performed By: #### 2 777-1, LIPNF, 2276-4, 49824-7, 85250-6, 37183-6 ####[facility] LABIA [id number] [place] [id number] [place] Urea nitrogen [Mass/Vol] 100 mg/dL High 9-24 [facility] Comment on above: Order Comment: Speci men Type: BLOOD SPECIMENOrdering Facility: [facility] Address: [address] [place] [address] Performed By: #### 2 777-1, LIPNF, 2276-4, 54055-4, 32815-1, 24415-4 ####[facility] LABIA [id number] [place] [id number] [place] ECG COMPLETEon 11-23-2024 ECG COMPLETE Normal [facility] EMA05up 11-23-2024 ECG01 Normal [facility] ECHO LIMITEDon 11-23-2024 ECHO LIMITED Normal [facility] ECHO LIMITED Normal [facility] Ferritin SerPl-mCncon 2024 Ferritin [Mass/Vol] 1473.0 ng/mL High 30.3-565.7 [facility] Comment on above: Order Comment: Speci men Type: BLOOD SPECIMENOrdering Facility: [facility] Address: [address] [place] [address] Performed By: #### 2 777-1, LIPNF, 2276-4, 23556-1, 24535-0, 75998-8 ####[facility] LABCLIA [id number] [place] [id number] [place] Gas and Carbon monoxide pane l (BldV)on 11-23-2024 BASE DEFICIT, VENOUS -1 mmol/L Normal -2-0 [facility] Comment on above: Order Comment: Speci men Type: VENOUS BLOOD SPECIMENOrdering Facility: [facility] Address: [address] [place] [address] Performed By: #### 2 4344-4 ####[facility] LABCLIA [id number] [place] [address] [place] Body temperature 98.6 [degF] Normal [facility] Comment on above: Order Comment: Speci men Type: VENOUS BLOOD SPECIMENOrdering Facility: [facility] Address: [address] [place] [address] Performed By: #### 2 4344-4 ####[facility] LABCLIA [id number] [place] [id number] [place] Calcium.ionized (Bld) [Mass/Vol] 1.14 mmol/L Normal 1.08-1.30 [facility] Comment on above: Order Comment: Speci men Type: VENOUS BLOOD SPECIMENOrdering Facility: [facility] Address: [address] [place] [address] Performed By: #### 2 4344-4 ####[facility] LABCLIA [id number] [place] [id number] [place] Calcium.ionized adjusted to pH 7.4 (BldA) [Moles/Vol] 1.07 mmol/L Low 1.08-1.30 [facility] Comment on above: Order Comment: Speci men Type: VENOUS BLOOD SPECIMENOrdering Facility: [facility] Address: [address] [place] [address] Performed By: #### 2 4344-4 ####[facility] LABIA [id number] [place] [address] [place] Carboxyhemoglobin (BldV) [Mass fraction] 0.8 % Normal 0.0-2.0 [facility] Comment on above: Order Comment: Speci men Type: VENOUS BLOOD SPECIMENOrdering Facility: [facility] Address: [address] [place] [address] Result Comment: Carb oxyhemoglobin Reference Range for Smokers: 2.0-8.0% Performed By: #### 2 4344-4 ####[facility] LABIA [id number] [place] [address] [place] CO2 (BldV) [Partial pressure] 56 mm[Hg] High 42-55 [facility] Comment on above: Order Comment: Speci men Type: VENOUS BLOOD SPECIMENOrdering Facility: [facility] Address: [address] [place] [address] Performed By: #### 2 4344-4 ####[facility] LABIA [id number] [place] [address] [place] Glucose [Mass/Vol] 228 mg/dL High 60-105 [facility] Comment on above: Order Comment: Speci men Type: VENOUS BLOOD SPECIMENOrdering Facility: [facility] Address: [address] [place] [address] Performed By: #### 2 4344-4 ####[facility] LABIA [id number] [place] [address] [place] HCO3 (Bld) [Moles/Vol] 26 mmol/L Normal 24-28 [facility] Comment on above: Order Comment: Speci men Type: VENOUS BLOOD SPECIMENOrdering Facility: [facility] Address: [address] [place] [address] Performed By: #### 2 4344-4 ####[facility] LABCLIA [id number] [place] [address] [place] Hematocrit (Bld) [Volume fraction] 34.4 % Low 39.0-51.0 [facility] Comment on above: Order Comment: Speci men Type: VENOUS BLOOD SPECIMENOrdering Facility: [facility] Address: [address] [place] [address] Performed By: #### 2 4344-4 ####[facility] LABCLIA [id number] [place] [address] [place] Hemoglobin (Bld) [Mass/Vol] 11.2 g/dL Low 13.0-17.0 [facility] Comment on above: Order Comment: Speci men Type: VENOUS BLOOD SPECIMENOrdering Facility: [facility] Address: [address] [place] [address] Performed By: #### 2 4344-4 ####[facility] LABIA [id number] [place] [address] [place] Lactate [Moles/Vol] 0.9 mmol/L Normal 0.5-2.2 [facility] Comment on above: Order Comment: Speci men Type: VENOUS BLOOD SPECIMENOrdering Facility: [facility] Address: [address] [place] [address] Performed By: #### 2 4344-4 ####[facility] LABCLIA [id number] [place] [address] [place] Methemoglobin (Bld) [Mass fraction] 1.2 % Normal 0.0-1.5 [facility] Comment on above: Order Comment: Speci men Type: VENOUS BLOOD SPECIMENOrdering Facility: [facility] Address: [address] [place] [place] [address] Performed By: #### 2 4344-4 ####[facility] LABCLIA [id number] [place] [address] [place] O2 THERAPY RA=Room Air Normal [facility] Comment on above: Order Comment: Speci men Type: VENOUS BLOOD SPECIMENOrdering Facility: [facility] Address: [address] [place] [address] Performed By: #### 2 4344-4 ####[facility] LABIA [id number] [place] [address] [place] Oxygen (BldV) [Partial pressure] 24 mm[Hg] Low 35-45 [facility] Comment on above: Order Comment: Speci men Type: VENOUS BLOOD SPECIMENOrdering Facility: [facility] Address: [address] [place] [address] Performed By: #### 2 4344-4 ####[facility] LABIA [id number] [place] [address] [place] Oxygen saturation in Venous blood 28 % Low 60-85 [facility] Comment on above: Order Comment: Speci men Type: VENOUS BLOOD SPECIMENOrdering Facility: [facility] Address: [address] [place] [address] Performed By: #### 2 4344-4 ####[facility] LABIA [id number] [place] [id number] [place] Oxyhemoglobin (BldV) [Mass fraction] 27 % Low 60-85 [facility] Comment on above: Order Comment: Speci men Type: VENOUS BLOOD SPECIMENOrdering Facility: [facility] Address: [address] [place] [address] Performed By: #### 2 4344-4 ####[facility] LABIA [id number] [place] [id number] [place] pH (BldV) 7.29 [pH] Low 7.32-7.42 [facility] Comment on above: Order Comment: Speci men Type: VENOUS BLOOD SPECIMENOrdering Facility: [facility] Address: [address] [place] [address] Performed By: #### 2 4344-4 ####[facility] LABCLIA [id number] [place] [address] [place] Potassium [Moles/Vol] 5.3 mmol/L High 3.5-5.0 [facility] Comment on above: Order Comment: Speci men Type: VENOUS BLOOD SPECIMENOrdering Facility: [facility] Address: [address] [place] [address] Performed By: #### 2 4344-4 ####[facility] LABIA [id number] [place] [address] [place] Sodium [Moles/Vol] 128 mmol/L Low 136-144 [facility] Comment on above: Order Comment: Speci men Type: VENOUS BLOOD SPECIMENOrdering Facility: [facility] Address: [address] [place] [address] Performed By: #### 2 4344-4 ####[facility] LABIA [id number] [place] [address] [place] HBV surface Ab Ql (S)on HBV surface Ab Qn (S) 104.84 mIU/mL Normal [facility] Comment on above: Order Comment: Speci men Type: BLOOD SPECIMENOrdering Facility: [facility] Address: [address] [place] [address] Result Comment: <8 m IU/mL: No serological evidence of immunity to Hepatitis B Virus.>/= 8 to <12 mIU/mL: No serological evidence of immunity to Hepatitis B Virus.>/= 12 mIU/mL: Consistent with serological evidence of immunity to Hepatitis B Virus. Performed By: #### 5 195-3, 76407-7 ####[facility] LABCLIA [id number] [address] OF [facility] HBV surface Ab Ser Qlon HBV surface Ab Ql (S) Positive Normal [facility] Comment on above: Order Comment: Speci men Type: BLOOD SPECIMENOrdering Facility: [facility] Address: [address] [place] [address] Result Comment: Cons istent with serological evidence of immunity to Hepatitis B Virus. Performed By: #### 5 195-3, 05301-0 ####[facility] LABIA [id number] [address] [place] HBV surface Ag Ser Qlon HBV surface Ag Ql (S) Negative Normal Negative [facility] Comment on above: Order Comment: Ruddyi ash Type: BLOOD SPECIMENOrdering Facility: [facility] Address: [address] [place] [address] Performed By: #### 5 195-3, 85765-2 ####[facility] [id number] [place] [address] [place] HISTORY PHYSICALon HISTORY PHYSICAL Normal [facility] HbA1c (Bld)on 11-23-2024 Average glucose Estimated from glycated hemoglobin (Bld) [Mass/Vol] 154 mg/dL Normal [facility] Comment on above: Order Comment: Speci men Type: BLOOD SPECIMENOrdering Facility: [facility] Address: [address] [place] [address] Result Comment: eAG: (Estimated average glucose) is a calculated value from HgbA1c and is senior customer service representative of the average blood glucose level in the last 2-3 month period. Performed By: #### 5 5454-3, 99929-4 ####[facility] LABIA [id number] [place] [address] [place] HbA1c (Bld) [Mass fraction] 7.0 % High 4.3-5.6 [facility] Comment on above: Order Comment: Speci men Type: BLOOD SPECIMENOrdering Facility: [facility] Address: [address] [place] [address] Result Comment: Amer [place] Diabetes Association guidelines indicate that patients with HgbA1c in the range 5.7-6.4% are at increased risk for development of diabetes, and intervention by lifestyle modification may be beneficial. HgbA1c greater or equal to 6.5% is considered diagnostic of diabetes. Performed By: #### 5 5454-3, 94739-3 ####[facility] LABCLIA [id number] [place] [address] [place] Iron and Iron binding capaci ty panelon 11-23-2024 Iron [Mass/Vol] 105 ug/dL Normal 41-186 [facility] Comment on above: Order Comment: Speci men Type: BLOOD SPECIMENOrdering Facility: [facility] Address: [address] [place] [address] Performed By: #### 2 777-1, LIPNF, 2276-4, 45031-4, 67338-1, 24362-0 ####[facility] LABCLIA [id number] [place] [address] [place] Iron binding capacity [Mass/Vol] 179 ug/dL Low 232-386 [facility] Comment on above: Order Comment: Speci men Type: BLOOD SPECIMENOrdering Facility: [facility] Address: [address] [place] [address] Performed By: #### 2 777-1, LIPNF, 6-4, 88661-0, 42651-8, 30611-9 ####[facility] LABCLIA [id number] [address] [address] [place] Iron/TIBC [Molar ratio] 58.7 % High 15.0-57.0 [facility] Comment on above: Order Comment: Speci men Type: BLOOD SPECIMENOrdering Facility: [facility] Address: [address] [place] [address] Performed By: #### 2 777-1, LIPNF, 2276-4, 39255-0, 04708-0, 77541-7 ####[facility] LABCLIA [id number] [place] [address] [place] LIPID PANEL, NONFASTINGon Cholesterol [Mass/Vol] 113 mg/dL Normal <200 [facility] Comment on above: Order Comment: Speci men Type: BLOOD SPECIMENOrdering Facility: [facility] Address: [address] [place] [address] Result Comment: <200 mg/dL, Desirable 200-239 mg/dL, Borderline high>239 mg/dL, High Performed By: #### 2 777-1, LIPNF, 6-4, 39604-7, 63597-4, 28599-3 ####[facility] LABCLIA [id number] [place] [id number] [place] HDL CHOLESTEROL, NF 48 mg/dL Normal >39 [facility] Comment on above: Order Comment: Speci men Type: BLOOD SPECIMENOrdering Facility: [facility] Address: [address] [place] [place] [address] Result Comment: 40-5 9 mg/dL, Acceptable>59 mg/dL, High: Negative risk factor for coronary heart disease<40 mg/dL, Low: Positive risk factor for coronary heart disease Performed By: #### 2 777-1, LIPNF, 6-4, 75083-7, 17119-8, 44380-5 ####[facility] LABCLIA [id number] [address] [place] LDL CHOLESTEROL CALCULATED, NF 56 mg/dL Normal <100 [facility] Comment on above: Order Comment: Speci men Type: BLOOD SPECIMENOrdering Facility: [facility] Address: [address] [place] [address] Result Comment: <100 mg/dL, Optimal 100-129 mg/dL, Near optimal/above optimal 130-159 mg/dL, Borderline high 160-189 mg/dL, High>189 mg/dL, Very highSecondary prevention optimal LDL Cholesterol levels are recommended to be <70 mg/dLLDL cholesterol is calculated using the Nice-NIH equation. Performed By: #### 2 777-1, LIPNF, 6-4, 77607-2, 53446-8, 85430-9 ####[facility] LABCLIA [id number] [address] [place] [address] [facility] LDL/HDL RATIO, NF 1.17 mg/dL Normal <2.54 [facility] Comment on above: Order Comment: Speci men Type: BLOOD SPECIMENOrdering Facility: [facility] Address: [address] [place] [address] Result Comment: Refe rence:1. National Cholesterol Education Program ATP III Guideline At-A-Glance Quick Desk Reference: National Heart, Lung, and Blood [place]. National Institutes of Health. 2001: NIH Publication No. 01-3305.2. An International Atherosclerosis Society position paper: global recommendations for the management of dyslipidemia: executive summary, Atherosclerosis. 2014: 232(2):410-413. Performed By: #### 2 777-1, LIPNF, 6-4, 56410-1, 54559-1, 19388-8 ####[facility] LABCLIA [id number] [address] [place] [address] [place] [facility] NON HDL CHOL, NF 65 mg/dL Normal <130 [facility] Comment on above: Order Comment: Speci men Type: BLOOD SPECIMENOrdering Facility: [facility] Address: [address] [place] [place] [address] Result Comment: <130 mg/dL, Optimal 130-159 mg/dL, Near optimal/above optimal 160-189 mg/dL, Borderline high 190-219 mg/dL, High>219 mg/dL, Very highSecondary prevention optimal non HDL Cholesterol levels are recommended to be <100 mg/dL Performed By: #### 2 777-1, LIPNF, 2276-4, 24189-7, 48492-9, 31938-9 ####[facility] LABCLIA [id number] [address] [place] [address] [place] T CHOL/HDL RATIO NF 2.35 mg/dL Normal <5.10 [facility] Comment on above: Order Comment: Speci men Type: BLOOD SPECIMENOrdering Facility: [facility] Address: [address] [place] [address] Performed By: #### 2 777-1, LIPNF, 2276-4, 46156-7, 81066-0, 35780-7 ####[facility] LABCLIA [id number] [place] [address] [place] TRIGLYCERIDES, NF 33 mg/dL Normal <150 [facility] Comment on above: Order Comment: Speci men Type: BLOOD SPECIMENOrdering Facility: [facility] Address: [address] [place] [address] Result Comment: <150 mg/dL, Normal 150-199 mg/dL, Borderline high 200-499 mg/dL, High>499 mg/dL, Very high Performed By: #### 2 777-1, LIPNF, 2276-4, 71812-6, 15451-8, 76870-7 ####[facility] LABCLIA [id number] [place] [address] [place] VLDL CHOLESTEROL, NF 5 mg/dL Normal <30 [facility] Comment on above: Order Comment: Speci men Type: BLOOD SPECIMENOrdering Facility: [facility] Address: [address] [place] [address] Performed By: #### 2 777-1, LIPNF, 2276-4, 34920-8, 96407-2, 04189-1 ####[facility] LABCLIA [id number] [place] [id number] [place] Magnesium SerPl-mCncon 11-23 Magnesium [Mass/Vol] 2.7 mg/dL High 1.7-2.3 [facility] Comment on above: Order Comment: Speci men Type: BLOOD SPECIMENOrdering Facility: [facility] Address: [address] [place] [address] Performed By: #### 2 777-1, LIPNF, 2276-4, 27913-2, 20210-7, 03313-6 ####[facility] [id number] [place] [address] [place] PT panel Coag (PPP)on 2024 INR Coag (PPP) [Relative time] 1.2 {INR} Normal 0.9-1.3 [facility] Comment on above: Order Comment: Speci men Type: BLOOD SPECIMENOrdering Facility: [facility] Address: [address] [place] [address] Result Comment: Ching min K Antagonist (VKA) Therapeutic Range: INR 2 to 3 (Target INR of 2.5)Note: For patients treated with VKA drugs, such as warfarin, the [place] [employer] 2012 Guideline recommends [...] al. Chest 2012, 141:7S-47SNishimanay RA, et al. [facility] 2017, 70: 252-289 Performed By: #### 3 4528-0, 32826-8 ####[facility] [id number] [address] [address] [place] PT Coag (PPP) [Time] 12.6 s Normal 9.7-13.0 [facility] Comment on above: Order Comment: Speci men Type: BLOOD SPECIMENOrdering Facility: [facility] Address: [address] [place] [address] Performed By: #### 3 4528-0, 69431-5 ####[facility] LABIA [id number] [place] [address] [place] Phosphate SerPl-mCncon 11-23 Phosphate [Mass/Vol] 10.4 mg/dL High 2.7-4.8 [facility] Comment on above: Order Comment: Speci men Type: BLOOD SPECIMENOrdering Facility: [facility] Address: [address] [place] [address] Performed By: #### 2 777-1, LIPNF, 2276-4, 62971-3, 09164-0, 38458-6 ####[facility] [id number] [place] [address] [place] STAPHYLOCOCCUS AUREUS AND MR SA SCREEN, PCR, NASALon 11-23-2024 S. aureus and MRSA panel EZEKIEL+probe (Nose) Not detected Normal Not Detected [facility] Comment on above: Order Comment: Speci men Type: SWABOrdering Facility: [facility] Address: [address] [place] [address] Performed By: #### S APCR ####[facility] [id number] [place] [address] [place] T4 Free SerPl-mCncon 025 Free T4 [Mass/Vol] 1.0 ng/dL Normal 0.9-1.7 [facility] Comment on above: Order Comment: Speci men Type: BLOOD SPECIMENOrdering Facility: [facility] Address: [address] [place] [address] Performed By: #### 1 1065-0, 3024-7, 3016-3 ####[facility] [id number] [place] [address] [place] THERAPY NTon 11-23-2024 THERAPY NT Normal [facility] TSH SerPl-aCncon 11-23-2024 TSH Qn 1.490 m[IU]/L Normal 0.270-4.200 [facility] Comment on above: Order Comment: Speci men Type: BLOOD SPECIMENOrdering Facility: [facility] Address: [address] [place], [place] [address] Performed By: #### 1 1065-0, 3024-7, 3016-3 ####[facility] LABCLIA [id number] [address] [address] [place] TYPE + SCREENon 11-23-2024 ABO A Normal [facility] Comment on above: Order Comment: Speci men Type: BLOOD SPECIMENOrdering Facility: [facility] Address: [address] [place] [address] Performed By: #### T SCR ####[facility] [id number] [place] [address] [place] Rh Nom (Bld) Positive Normal [facility] Comment on above: Order Comment: Speci men Type: BLOOD SPECIMENOrdering Facility: [facility] Address: [address] [place] [address] Performed By: #### T SCR ####[facility] [id number] [place] [address] [place] TYPE AND SCREEN EXPIRATION 11/26/2024 23:59 Normal [facility] Comment on above: Order Comment: Speci men Type: BLOOD SPECIMENOrdering Facility: [facility] Address: [address] [place] [address] Performed By: #### T SCR ####[facility] [id number] [address] [address] [place] Urea nitrogen post dialysis [Mass/Vol]on 11-23-2024 UREA REDUCTION RATIO WITH BUNPR 67 % Normal [facility] Comment on above: Order Comment: Speci men Type: BLOOD SPECIMENOrdering Facility: [facility] Address: [address] [place] [address] Performed By: #### 1 1064-3 ####[facility] LABCLIA [id number] [place] [id number] [place] aPTT PPPon 11-23-2024 aPTT Coag (PPP) [Time] 33.5 s High 23.0-32.4 [facility] Comment on above: Order Comment: Speci men Type: BLOOD SPECIMENOrdering Facility: [facility] Address: [address] [place] [address] Performed By: #### 3 4528-0, 42713-4 ####[facility] LABCLIA [id number] [place] [id number] [place] 12 Lead EKGon 11-22-2024 12 Lead EKG Normal [facility] 12 Lead EKG Normal [facility] Absolute lymphocyte countOrd ered By: Earl Desai on 11-22-2024 Lymphocytes Auto (Unsp spec) [#/Vol] 1.93 10*3/uL 0.83-4.51 [facility] Activated partial thrombopla stin time (aPTT) in platelet poor plasma by coagulation aOrdered By: Earl Desai on 11-22-2024 aPTT Coag (PPP) [Time] 34.7 s 24.1-36.2 [facility] Anion gap in Serum or Plasma Ordered By: Earl Desai on 11-22-2024 Anion gap [Moles/Vol] 17 mmol/L High 5-15 [facility] Automated lymphocyte count a s percentage of total leukocytesOrdered By: Earl Desai on 11-22-2024 Lymphocytes/100 WBC Auto (Unsp spec) 19.3 % 19-41 [facility] BUN/creatinine ratioOrdered By: Earl Desai on 11-22-2024 Urea nitrogen/Creatinine [Mass ratio] 12.4 mg/mg - [facility] Basic Metabolic Profile (BMP )on 11-22-2024 BUN/CRE 12.4 RATIO Normal - [facility] Comment on above: Performed By: #### L 300.4310, L300.3900, L501.4021, L100.0100, L501.5200, L500.2500, L503.7505 ####[facility] [address] [place], [address] Calcium [Mass/Vol] 8.8 mg/dL Normal 7.6-11.0 [facility] Comment on above: Performed By: #### L 300.4310, L300.3900, L501.4021, L100.0100, L501.5200, L500.2500, L503.7505 ####[facility] [address] [place], [address] Chloride [Moles/Vol] 88 mmol/L Low 98-108 [facility] Comment on above: Performed By: #### L 300.4310, L300.3900, L501.4021, L100.0100, L501.5200, L500.2500, L503.7505 ####[facility] [address] [place], [address] CO2 [Moles/Vol] 25.3 mmol/L Normal 21.0-32.0 [facility] Comment on above: Performed By: #### L 300.4310, L300.3900, L501.4021, L100.0100, L501.5200, L500.2500, L503.7505 ####[facility] [address] [place], [address] Creatinine [Mass/Vol] 6.55 mg/dL High 0.70-1.20 [facility] Comment on above: Performed By: #### L 300.4310, L300.3900, L501.4021, L100.0100, L501.5200, L500.2500, L503.7505 ####[facility] [address] [place], [address] ECRCL 8.98 ml/min Invalid Interpretation Code 50-250 [facility] Comment on above: Performed By: #### L 300.4310, L300.3900, L501.4021, L100.0100, L501.5200, L500.2500, L503.7505 ####[facility] [address] [place], [address] GAP 17 High 5-15 [facility] Comment on above: Performed By: #### L 300.4310, L300.3900, L501.4021, L100.0100, L501.5200, L500.2500, L503.7505 ####[facility] [address] [place], [address] GFR/1.73 sq M.predicted among non-blacks MDRD (S/P/Bld) [Vol rate/Area] 8 mL/min/{1.73_m2} Low >60 [facility] Comment on above: Result Comment: mL/m in/1.73m2 CKD-EPI Creatinine Equation (2020) Performed By: #### L 300.4310, L300.3900, L501.4021, L100.0100, L501.5200, L500.2500, L503.7505 ####[facility] [address] [place], [address] Glucose [Mass/Vol] 249 mg/dL High 70-99 [facility] Comment on above: Performed By: #### L 300.4310, L300.3900, L501.4021, L100.0100, L501.5200, L500.2500, L503.7505 ####[facility] [address] [place], [address] Potassium [Moles/Vol] 5.2 mmol/L High 3.3-5.1 [facility] Comment on above: Performed By: #### L 300.4310, L300.3900, L501.4021, L100.0100, L501.5200, L500.2500, L503.7505 ####[facility] [address] [place], [address] Sodium [Moles/Vol] 130 mmol/L Low 133-145 [facility] Comment on above: Performed By: #### L 300.4310, L300.3900, L501.4021, L100.0100, L501.5200, L500.2500, L503.7505 ####[facility] [address] [place], [address] Urea nitrogen [Mass/Vol] 81 mg/dL High 4-19 [facility] Comment on above: Performed By: #### L 300.4310, L300.3900, L501.4021, L100.0100, L501.5200, L500.2500, L503.7505 ####[facility] [address] [place], [address] Basophil percentageOrdered B y: Earl Desai on 11-22-2024 Basophils/100 WBC (Bld) 0.5 % 0-1 [facility] CBC W/Diff, Automatedon - Absolute Lymph 1.93 X10 3/uL Normal 0.83-4.51 [facility] Comment on above: Performed By: #### L 300.4310, L300.3900, L501.4021, L100.0100, L501.5200, L500.2500, L503.7505 ####[facility] [address] [place], [address] Absolute Neut 6.8 X10 3/uL Normal 2.0-7.7 [facility] Comment on above: Performed By: #### L 300.4310, L300.3900, L501.4021, L100.0100, L501.5200, L500.2500, L503.7505 ####[facility] [address] [place], [address] Basophils/100 WBC (Bld) 0.5 % Normal 0-1 [facility] Comment on above: Performed By: #### L 300.4310, L300.3900, L501.4021, L100.0100, L501.5200, L500.2500, L503.7505 ####[facility] [address] [place], [address] Eosinophils/100 WBC (Bld) 2.6 % Normal 0-5 [facility] Comment on above: Performed By: #### L 300.4310, L300.3900, L501.4021, L100.0100, L501.5200, L500.2500, L503.7505 ####[facility] [address] [place], [address] Erythrocyte distribution width (RBC) [Ratio] 16.4 % High 11.6-14.6 [facility] Comment on above: Performed By: #### L 300.4310, L300.3900, L501.4021, L100.0100, L501.5200, L500.2500, L503.7505 ####[facility] [address] [place], [address] Hematocrit (Bld) [Volume fraction] 34.9 % Low 40-54 [facility] Comment on above: Performed By: #### L 300.4310, L300.3900, L501.4021, L100.0100, L501.5200, L500.2500, L503.7505 ####[facility] [address] [place], [address] Hemoglobin (Bld) [Mass/Vol] 10.9 g/dL Low 13.0-16.5 [facility] Comment on above: Performed By: #### L 300.4310, L300.3900, L501.4021, L100.0100, L501.5200, L500.2500, L503.7505 ####[facility] [address] [place], [address] IG% 0.500 Normal 0.0-0.9 [facility] Comment on above: Result Comment: IG% - Immature Granulocytes (promyelocytes, myelocytes andmetamyelocytes) > 1% indicates that a LEFT SHIFT is Present. Performed By: #### L 300.4310, L300.3900, L501.4021, L100.0100, L501.5200, L500.2500, L503.7505 ####[facility] [address] [place], [address] Lymphocytes/100 WBC (Bld) 19.3 % Normal 19-41 [facility] Comment on above: Performed By: #### L 300.4310, L300.3900, L501.4021, L100.0100, L501.5200, L500.2500, L503.7505 ####[facility] [address] [place], [address] MCH (RBC) [Entitic mass] 28.2 pg Normal 27.0-32.0 [facility] Comment on above: Performed By: #### L 300.4310, L300.3900, L501.4021, L100.0100, L501.5200, L500.2500, L503.7505 ####[facility] [address] [place], [address] MCHC (RBC) [Mass/Vol] 31.2 g/dL Low 32-36 [facility] Comment on above: Performed By: #### L 300.4310, L300.3900, L501.4021, L100.0100, L501.5200, L500.2500, L503.7505 ####[facility] [address] [place], [address] MCV (RBC) [Entitic vol] 90.2 fL Normal 80-94 [facility] Comment on above: Performed By: #### L 300.4310, L300.3900, L501.4021, L100.0100, L501.5200, L500.2500, L503.7505 ####[facility] [address] [place], [address] Monocytes/100 WBC (Bld) 8.8 % Normal 0-10 [facility] Comment on above: Performed By: #### L 300.4310, L300.3900, L501.4021, L100.0100, L501.5200, L500.2500, L503.7505 ####[facility] [address] [place], [address] Neutrophils/100 WBC (Bld) 68.3 % Normal 47-70 [facility] Comment on above: Performed By: #### L 300.4310, L300.3900, L501.4021, L100.0100, L501.5200, L500.2500, L503.7505 ####[facility] [address] [place], [address] Nucleated RBC (Bld) [#/Vol] 0 10*3/uL Normal 0-5 [facility] Comment on above: Performed By: #### L 300.4310, L300.3900, L501.4021, L100.0100, L501.5200, L500.2500, L503.7505 ####[facility] [address] [place], [address] Platelet mean volume (Bld) [Entitic vol] 11.7 fL Normal 6.2-12.0 [facility] Comment on above: Performed By: #### L 300.4310, L300.3900, L501.4021, L100.0100, L501.5200, L500.2500, L503.7505 ####[facility] [address] [place], [address] Platelets (Bld) [#/Vol] 161 10*3/uL Normal 150-450 [facility] Comment on above: Performed By: #### L 300.4310, L300.3900, L501.4021, L100.0100, L501.5200, L500.2500, L503.7505 ####[facility] [address] [place], [address] RBC (Bld) [#/Vol] 3.87 10*6/uL Low 4.6-6.2 [facility] Comment on above: Performed By: #### L 300.4310, L300.3900, L501.4021, L100.0100, L501.5200, L500.2500, L503.7505 ####[facility] [address] [place], [address] RDW SD 53.6 fl High 35.1-43.9 [facility] Comment on above: Performed By: #### L 300.4310, L300.3900, L501.4021, L100.0100, L501.5200, L500.2500, L503.7505 ####[facility] [address] [place], [address] WBC (Bld) [#/Vol] 10.0 10*3/uL Normal 4.4-11.0 [facility] Comment on above: Performed By: #### L 300.4310, L300.3900, L501.4021, L100.0100, L501.5200, L500.2500, L503.7505 ####[facility] [address] [place], [address] Carbon dioxide, total [Moles /volume] in Central venous bloodOrdered By: Earl Desai on 11-22-2024 CO2 [Moles/Vol] 25.3 mmol/L 21.0-32.0 [facility] Chest 1 View (Portable)on Chest 1 View (Portable) Normal [facility] Chloride assayOrdered By: Sulaiman Desai on 11-22-2024 Chloride [Moles/Vol] 88 mmol/L Low 98-108 [facility] Emergency Department Summary on 11-22-2024 Emergency Department Summary Normal [facility] Eosinophil percentageOrdered By: Earl Desai on 11-22-2024 Eosinophils/100 WBC (Bld) 2.6 % 0-5 [facility] Erythrocyte distribution wid th ratioOrdered By: Earl Desai on 11-22-2024 Erythrocyte distribution width (RBC) [Ratio] 16.4 % High 11.6-14.6 [facility] Erythrocyte distribution wid th standard deviationOrdered By: Earl Desai on 11-22-2024 Erythrocyte distribution width (RBC) [Ratio] 53.6 fl High 35.1-43.9 [facility] Glomerular filtration rate ( GFR) estimation/1.73 sq m using serum, plasma, or whole bOrdered By: Earlyehuda Desai on 11-22-2024 GFR/1.73 sq M.predicted among non-blacks MDRD (S/P/Bld) [Vol rate/Area] 8 mL/min/{1.73_m2} Low >60 [facility] Hematocrit Auto (Bld) [Volum e fraction]Ordered By: Earl Desai on 11-22-2024 Hematocrit (Bld) [Volume fraction] 34.9 % Low 40-54 [facility] Hemoglobin measurementOrdere d By: Earl Desai on 11-22-2024 Hemoglobin (Bld) [Mass/Vol] 10.9 g/dL Low 13.0-16.5 [facility] Immature granulocytes/100 WB C Auto (Bld)Ordered By: Earl Desai on 11-22-2024 Immature granulocytes/100 WBC (Bld) 0.500 % 0.0-0.9 [facility] L499.0042on 11-22-2024 Trop T High Sen 127 ng/L Invalid Interpretation Code <=22 [facility] Comment on above: Result Comment: Jack ical Result(s) Called at: 11-22-24 11:39 TO TAO by:??TYLER MENDENHALL Results read back by same. Performed By: #### L 499.0042 ####[facility] [address] [place], [address] L499.0043on 11-22-2024 Trop T High Sen Normal <=22 [facility] Comment on above: Result Comment: Solomon eason via OM: Ordered Performed By: #### L 499.0043 ####[facility] [address] [place], [address] L501.4021on 11-22-2024 Trop T High Sen 129 ng/L Invalid Interpretation Code <=22 [facility] Comment on above: Result Comment: Crit ical Result(s) Called at: 11/22/2024-10:17 by: Keily to Macey Steinberg.??Results read back by same. Performed By: #### L 300.4310, L300.3900, L501.4021, L100.0100, L501.5200, L500.2500, L503.7505 ####[facility] [address] [place], [address] L503.7505on 11-22-2024 Natriuretic peptide B (Bld) [Mass/Vol] 17328 pg/mL High <=1800 [facility] Comment on above: Result Comment: Hear t Failure Unlikely: < 300 pg/mLHeart Failure Likely< 50 Years: > 450 pg/mL50-75 Years: > 900 pg/mL>75 Years: > 1800 pg/mL Performed By: #### L 300.4310, L300.3900, L501.4021, L100.0100, L501.5200, L500.2500, L503.7505 ####[facility] [address] [place], [address] MCV (mean corpuscular volume ) determinationOrdered By: Earl Desai on 11-22-2024 MCV (RBC) [Entitic vol] 90.2 fL 80-94 [facility] Magnesiumon 11-22-2024 Magnesium [Mass/Vol] 2.6 mg/dL High 1.5-2.2 [facility] Comment on above: Performed By: #### L 300.4310, L300.3900, L501.4021, L100.0100, L501.5200, L500.2500, L503.7505 ####[facility] [address] [place], [place], [id number] Magnesium measurement (mass/ volume)Ordered By: Earl Desai on 11-22-2024 Magnesium (Unsp spec) [Mass/Vol] 2.6 mg/dL High 1.5-2.2 [facility] Mean corpuscular hemoglobin (MCH) determinationOrdered By: Earl Desai on 11-22-2024 MCH (RBC) [Entitic mass] 28.2 pg 27.0-32.0 [facility] Monocyte percentageOrdered B y: Earl Desai on 11-22-2024 Monocytes/100 WBC (Bld) 8.8 % 0-10 [facility] Natriuretic peptide.B prohor angie N-Terminal [Mass/volume] in Serum or PlasmaOrdered By: Earl Desai on 11-22-2024 Natriuretic peptide.B prohormone N-Terminal [Mass/Vol] 59231 pg/mL High <1800 [facility] Neutrophil percentageOrdered By: Earl Desai on 11-22-2024 Neutrophils/100 WBC (Bld) 68.3 % 47-70 [facility] Partial Thromboplast Timeon 11-22-2024 aPTT Coag (Bld) [Time] 34.7 s Normal 24.1-36.2 [facility] Comment on above: Performed By: #### L 300.4310, L300.3900, L501.4021, L100.0100, L501.5200, L500.2500, L503.7505 ####[facility] [address] [place], [place], [id number] Platelet countOrdered By: Sulaiman Desai on 11-22-2024 Platelets (Bld) [#/Vol] 161 10*3/uL 150-450 [facility] Potassium measurement (mass/ volume)Ordered By: Earl Desai on 11-22-2024 Potassium (Unsp spec) [Mass/Vol] 5.2 mmol/L High 3.3-5.1 [facility] Prothrombin Time w/INRon INR Coag (PPP) [Relative time] 1.3 {INR} Normal [facility] Comment on above: Performed By: #### L 300.4310, L300.3900, L501.4021, L100.0100, L501.5200, L500.2500, L503.7505 ####[facility] [address] [place], [place], [id number] PT Coag (PPP) [Time] 16.5 s High 11.7-14.9 [facility] Comment on above: Performed By: #### L 300.4310, L300.3900, L501.4021, L100.0100, L501.5200, L500.2500, L503.7505 ####[facility] [address] [place], [place], [id number] Prothrombin timeOrdered By: Earl Desai on 11-22-2024 PT Coag (PPP) [Time] 16.5 s High 11.7-14.9 [facility] RBC Auto (Bld) [#/Vol]Ordere d By: Earl Desai on 11-22-2024 RBC (Bld) [#/Vol] 3.87 10*6/uL Low 4.6-6.2 [facility] Serum creatinine measurement (mass/volume)Ordered By: Earl Desai on 11-22-2024 Creatinine [Mass/Vol] 6.55 mg/dL High 0.70-1.20 [facility] Serum glucose measurement (m ass/volume)Ordered By: Earl Desai on 11-22-2024 Glucose [Mass/Vol] 249 mg/dL High 70-99 [facility] Serum or plasma calcium lilli urement (mass/volume)Ordered By: Earl Desai on 11-22-2024 Calcium [Mass/Vol] 8.8 mg/dL 7.6-11.0 [facility] Serum or plasma urea nitroge n measurement (mass/volume)Ordered By: Earl Desai on 11-22-2024 Urea nitrogen [Mass/Vol] 81 mg/dL High 4-19 [facility] Sodium levelOrdered By: Earl Desai on 11-22-2024 Sodium [Moles/Vol] 130 mmol/L Low 133-145 [facility] Troponin T.cardiac [Mass/vol ume] in Serum or Plasma by High sensitivity methodOrdered By: Earl Desai on 11-22-2024 Troponin T.cardiac High sensitivity method [Mass/Vol] 127 ng/L Critically high <22 [facility] Troponin T.cardiac High sensitivity method [Mass/Vol] 129 ng/L Critically high <22 [facility] White blood cell (WBC) count Ordered By: Earl Desai on 11-22-2024 WBC (Bld) [#/Vol] 10.0 10*3/uL 4.4-11.0 [facility] Calculated very low density lipoprotein (VLDL) cholesterol measurementOrdered By: Nando Wiggins on 11-12-2024 Calculated very low density lipoprotein (VLDL) cholesterol measurement 5 mg/dL 5-40 [facility] LDL calc ser/plasOrdered By: Nando Wiggins on 11-12-2024 Cholesterol in LDL [Mass/Vol] 53 mg/dL [facility] Serum or plasma cholesterol in HDL measurement (mass/volume)Ordered By: Nando Wiggins on 11-12-2024 Cholesterol in HDL [Mass/Vol] 54 mg/dL >40 [facility] Serum or plasma cholesterol measurement (mass/volume)Ordered By: Nando Wiggins on 11-12-2024 Cholesterol [Mass/Vol] 112 mg/dL <201 [facility] Brain/Head without Contrasto n 11-08-2024 Brain/Head without Contrast Normal [facility] Emergency Department Summary on 11-08-2024 Emergency Department Summary Normal [facility] Foot min 3 Viewson 5 Foot min 3 Views Normal [facility] Absolute lymphocyte countOrd ered By: Nando Wiggins on 11-05-2024 Lymphocytes Auto (Unsp spec) [#/Vol] 1.94 10*3/uL 0.83-4.51 [facility] Anion gap in Serum or Plasma Ordered By: Nando Wiggins on 11-05-2024 Anion gap [Moles/Vol] 16 mmol/L High 5-15 [facility] Automated lymphocyte count a s percentage of total leukocytesOrdered By: Nando Wiggins on 11-05-2024 Lymphocytes/100 WBC Auto (Unsp spec) 25.6 % 19-41 [facility] BUN/creatinine ratioOrdered By: Deboffutt afbwolf Wiggins on 11-05-2024 Urea nitrogen/Creatinine [Mass ratio] 12.4 mg/mg 10-20 [facility] Basophil percentageOrdered B y: Nando Wiggins on 11-05-2024 Basophils/100 WBC (Bld) 0.7 % 0-1 [facility] Carbon dioxide, total [Moles /volume] in Central venous bloodOrdered By: Nando Wiggins on 11-05-2024 CO2 [Moles/Vol] 24.7 mmol/L 21.0-32.0 [facility] Chloride assayOrdered By: Kathie Wiggins on 11-05-2024 Chloride [Moles/Vol] 90 mmol/L Low 98-108 [facility] Eosinophil percentageOrdered By: fili Wiggins on 11-05-2024 Eosinophils/100 WBC (Bld) 3.8 % 0-5 [facility] Erythrocyte distribution wid th ratioOrdered By: Nando Wiggins on 11-05-2024 Erythrocyte distribution width (RBC) [Ratio] 16.2 % High 11.6-14.6 [facility] Erythrocyte distribution wid th standard deviationOrdered By: Nando Wiggins on 11-05-2024 Erythrocyte distribution width (RBC) [Ratio] 52.6 fl High 35.1-43.9 [facility] Glomerular filtration rate ( GFR) estimation/1.73 sq m using serum, plasma, or whole bOrdered By: Nando Wiggins on 11-05-2024 GFR/1.73 sq M.predicted among non-blacks MDRD (S/P/Bld) [Vol rate/Area] 10 mL/min/{1.73_m2} Low >60 [facility] Hematocrit Auto (Bld) [Volum e fraction]Ordered By: Nando Wiggins on 11-05-2024 Hematocrit (Bld) [Volume fraction] 37.4 % Low 40-54 [facility] Hemoglobin measurementOrdere d By: Nando Wiggins on 11-05-2024 Hemoglobin (Bld) [Mass/Vol] 11.7 g/dL Low 13.0-16.5 [facility] Immature granulocytes/100 WB C Auto (Bld)Ordered By: Nando Wiggins on 11-05-2024 Immature granulocytes/100 WBC (Bld) 0.400 % 0.0-0.9 [facility] MCV (mean corpuscular volume ) determinationOrdered By: Nando Wiggins on 11-05-2024 MCV (RBC) [Entitic vol] 89.3 fL 80-94 [facility] Mean corpuscular hemoglobin (MCH) determinationOrdered By: biancaoffutt afbwolf Wiggins on 11-05-2024 MCH (RBC) [Entitic mass] 27.9 pg 27.0-32.0 [facility] Monocyte percentageOrdered B y: Nando Wiggins on 11-05-2024 Monocytes/100 WBC (Bld) 12.3 % High 0-10 [facility] Neutrophil percentageOrdered By: fili Wiggins on 11-05-2024 Neutrophils/100 WBC (Bld) 57.2 % 47-70 [facility] Platelet countOrdered By: Kathie Wiggins on 11-05-2024 Platelets (Bld) [#/Vol] 188 10*3/uL 150-450 [facility] Potassium measurement (mass/ volume)Ordered By: Nando Wiggins on 11-05-2024 Potassium (Unsp spec) [Mass/Vol] 4.4 mmol/L 3.3-5.1 [facility] RBC Auto (Bld) [#/Vol]Ordere d By: Nando Wiggins on 11-05-2024 RBC (Bld) [#/Vol] 4.19 10*6/uL Low 4.6-6.2 [facility] Serum creatinine measurement (mass/volume)Ordered By: Nando Wiggins on 11-05-2024 Creatinine [Mass/Vol] 5.10 mg/dL High 0.70-1.20 [facility] Serum glucose measurement (m ass/volume)Ordered By: Nando Wiggins on 11-05-2024 Glucose [Mass/Vol] 81 mg/dL 70-99 [facility] Serum or plasma calcium lilli urement (mass/volume)Ordered By: Nando Edenlakshmidesiree on 11-05-2024 Calcium [Mass/Vol] 9.1 mg/dL 7.6-11.0 [facility] Serum or plasma urea nitroge n measurement (mass/volume)Ordered By: Nando Wiggins on 11-05-2024 Urea nitrogen [Mass/Vol] 63 mg/dL High 4-19 [facility] Sodium levelOrdered By: Deb lilian Rosalie on 11-05-2024 Sodium [Moles/Vol] 131 mmol/L Low 133-145 [facility] White blood cell (WBC) count Ordered By: Nando Wiggins on 11-05-2024 WBC (Bld) [#/Vol] 7.6 10*3/uL 4.4-11.0 [facility] Absolute lymphocyte countOrd ered By: Nando Wiggins on 10-29-2024 Lymphocytes Auto (Unsp spec) [#/Vol] 2.20 10*3/uL 0.83-4.51 [facility] Anion gap in Serum or Plasma Ordered By: Nando Wiggins on 10-29-2024 Anion gap [Moles/Vol] 16 mmol/L High 5-15 [facility] Automated lymphocyte count a s percentage of total leukocytesOrdered By: Nando Wiggins on 10-29-2024 Lymphocytes/100 WBC Auto (Unsp spec) 27.2 % 19-41 [facility] BUN/creatinine ratioOrdered By: Nando Edenlakshmidesiree on 10-29-2024 Urea nitrogen/Creatinine [Mass ratio] 9.4 mg/mg Low 10-20 [facility] Basophil percentageOrdered B y: Nando Wiggins on 10-29-2024 Basophils/100 WBC (Bld) 0.9 % 0-1 [facility] Carbon dioxide, total [Moles /volume] in Central venous bloodOrdered By: Nando Wiggins on 10-29-2024 CO2 [Moles/Vol] 25.6 mmol/L 21.0-32.0 [facility] Cardiology Visit Reporton Cardiology Visit Report Normal [facility] Chloride assayOrdered By: Kathie Wiggins on 10-29-2024 Chloride [Moles/Vol] 93 mmol/L Low 98-108 [facility] Eosinophil percentageOrdered By: Nando Wiggins on 10-29-2024 Eosinophils/100 WBC (Bld) 4.8 % 0-5 [facility] Erythrocyte distribution wid th ratioOrdered By: Nando Wiggins on 10-29-2024 Erythrocyte distribution width (RBC) [Ratio] 16.9 % High 11.6-14.6 [facility] Erythrocyte distribution wid th standard deviationOrdered By: Nando Wiggins on 10-29-2024 Erythrocyte distribution width (RBC) [Ratio] 53.9 fl High 35.1-43.9 [facility] Glomerular filtration rate ( GFR) estimation/1.73 sq m using serum, plasma, or whole bOrdered By: Nando Wiggins on 10-29-2024 GFR/1.73 sq M.predicted among non-blacks MDRD (S/P/Bld) [Vol rate/Area] 9 mL/min/{1.73_m2} Low >60 [facility] Hematocrit Auto (Bld) [Volum e fraction]Ordered By: Nando Wiggins on 10-29-2024 Hematocrit (Bld) [Volume fraction] 37.8 % Low 40-54 [facility] Hemoglobin measurementOrdere d By: Nando Wiggins on 10-29-2024 Hemoglobin (Bld) [Mass/Vol] 11.6 g/dL Low 13.0-16.5 [facility] Immature granulocytes/100 WB C Auto (Bld)Ordered By: Nando Wiggins on 10-29-2024 Immature granulocytes/100 WBC (Bld) 0.200 % 0.0-0.9 [facility] MCV (mean corpuscular volume ) determinationOrdered By: Nando Wiggins on 10-29-2024 MCV (RBC) [Entitic vol] 89.2 fL 80-94 [facility] Mean corpuscular hemoglobin (MCH) determinationOrdered By: Nando Wiggins on 10-29-2024 MCH (RBC) [Entitic mass] 27.4 pg 27.0-32.0 [facility] Monocyte percentageOrdered B y: Nando Wiggins on 10-29-2024 Monocytes/100 WBC (Bld) 11.1 % High 0-10 [facility] Neutrophil percentageOrdered By: Nando Wiggins on 10-29-2024 Neutrophils/100 WBC (Bld) 55.8 % 47-70 [facility] Platelet countOrdered By: Kathie Wiggins on 10-29-2024 Platelets (Bld) [#/Vol] 219 10*3/uL 150-450 [facility] Potassium measurement (mass/ volume)Ordered By: Nando Wiggins on 10-29-2024 Potassium (Unsp spec) [Mass/Vol] 4.4 mmol/L 3.3-5.1 [facility] RBC Auto (Bld) [#/Vol]Ordere d By: Nando Wiggins on 10-29-2024 RBC (Bld) [#/Vol] 4.24 10*6/uL Low 4.6-6.2 [facility] Serum creatinine measurement (mass/volume)Ordered By: Nando Wiggins on 10-29-2024 Creatinine [Mass/Vol] 5.65 mg/dL High 0.70-1.20 [facility] Serum glucose measurement (m ass/volume)Ordered By: Nando Wiggins on 10-29-2024 Glucose [Mass/Vol] 86 mg/dL 70-99 [facility] Serum or plasma calcium lilli urement (mass/volume)Ordered By: Nando Wiggins on 10-29-2024 Calcium [Mass/Vol] 9.5 mg/dL 7.6-11.0 [facility] Serum or plasma urea nitroge n measurement (mass/volume)Ordered By: Nando Wiggins on 10-29-2024 Urea nitrogen [Mass/Vol] 53 mg/dL High 4-19 [facility] Sodium levelOrdered By: Deb lilian Rosalie on 10-29-2024 Sodium [Moles/Vol] 135 mmol/L 133-145 [facility] White blood cell (WBC) count Ordered By: Nando Wiggins on 10-29-2024 WBC (Bld) [#/Vol] 8.1 10*3/uL 4.4-11.0 [facility] Absolute lymphocyte countOrd ered By: Nando Wiggins on 10-22-2024 Lymphocytes Auto (Unsp spec) [#/Vol] 1.76 10*3/uL 0.83-4.51 [facility] Anion gap in Serum or Plasma Ordered By: Nando Wiggins on 10-22-2024 Anion gap [Moles/Vol] 16 mmol/L High 5-15 [facility] Automated lymphocyte count a s percentage of total leukocytesOrdered By: Nando Wiggins on 10-22-2024 Lymphocytes/100 WBC Auto (Unsp spec) 19.8 % 19-41 [facility] BUN/creatinine ratioOrdered By: Nando Wiggins on 10-22-2024 Urea nitrogen/Creatinine [Mass ratio] 12.2 mg/mg 10-20 [facility] Basophil percentageOrdered B y: Nando Edenlakshmidesiree on 10-22-2024 Basophils/100 WBC (Bld) 0.6 % 0-1 [facility] Carbon dioxide, total [Moles /volume] in Central venous bloodOrdered By: Nando Wiggins on 10-22-2024 CO2 [Moles/Vol] 27.2 mmol/L 21.0-32.0 [facility] Chloride assayOrdered By: Kathie Wiggins on 10-22-2024 Chloride [Moles/Vol] 91 mmol/L Low 98-108 [facility] Eosinophil percentageOrdered By: Nando Wiggins on 10-22-2024 Eosinophils/100 WBC (Bld) 3.0 % 0-5 [facility] Erythrocyte distribution wid th ratioOrdered By: Nando Wiggins on 10-22-2024 Erythrocyte distribution width (RBC) [Ratio] 15.9 % High 11.6-14.6 [facility] Erythrocyte distribution wid th standard deviationOrdered By: Nando Wiggins on 10-22-2024 Erythrocyte distribution width (RBC) [Ratio] 53.1 fl High 35.1-43.9 [facility] Glomerular filtration rate ( GFR) estimation/1.73 sq m using serum, plasma, or whole bOrdered By: Nando Wiggins on 10-22-2024 GFR/1.73 sq M.predicted among non-blacks MDRD (S/P/Bld) [Vol rate/Area] 12 mL/min/{1.73_m2} Low >60 [facility] Hematocrit Auto (Bld) [Volum e fraction]Ordered By: Nando Wiggins on 10-22-2024 Hematocrit (Bld) [Volume fraction] 35.6 % Low 40-54 [facility] Hemoglobin measurementOrdere d By: Nando Wiggins on 10-22-2024 Hemoglobin (Bld) [Mass/Vol] 10.7 g/dL Low 13.0-16.5 [facility] Immature granulocytes/100 WB C Auto (Bld)Ordered By: Nando Wiggins on 10-22-2024 Immature granulocytes/100 WBC (Bld) 0.400 % 0.0-0.9 [facility] MCV (mean corpuscular volume ) determinationOrdered By: Nando Wiggins on 10-22-2024 MCV (RBC) [Entitic vol] 90.6 fL 80-94 [facility] Mean corpuscular hemoglobin (MCH) determinationOrdered By: Nando Wiggins on 10-22-2024 MCH (RBC) [Entitic mass] 27.2 pg 27.0-32.0 [facility] Monocyte percentageOrdered B y: Nando Wiggins on 10-22-2024 Monocytes/100 WBC (Bld) 10.1 % High 0-10 [facility] Neutrophil percentageOrdered By: Nando Wiggins on 10-22-2024 Neutrophils/100 WBC (Bld) 66.1 % 47-70 [facility] Platelet countOrdered By: Kathie Wiggins on 10-22-2024 Platelets (Bld) [#/Vol] 167 10*3/uL 150-450 [facility] Potassium measurement (mass/ volume)Ordered By: Nando Wiggins on 10-22-2024 Potassium (Unsp spec) [Mass/Vol] 4.1 mmol/L 3.3-5.1 [facility] RBC Auto (Bld) [#/Vol]Ordere d By: Nando Wiggins on 10-22-2024 RBC (Bld) [#/Vol] 3.93 10*6/uL Low 4.6-6.2 [facility] Serum creatinine measurement (mass/volume)Ordered By: Nando Wiggins on 10-22-2024 Creatinine [Mass/Vol] 4.58 mg/dL High 0.70-1.20 [facility] Serum glucose measurement (m ass/volume)Ordered By: Nando Wiggins on 10-22-2024 Glucose [Mass/Vol] 131 mg/dL High 70-99 [facility] Serum or plasma calcium lilli urement (mass/volume)Ordered By: Nando Wiggins on 10-22-2024 Calcium [Mass/Vol] 9.1 mg/dL 7.6-11.0 [facility] Serum or plasma urea nitroge n measurement (mass/volume)Ordered By: Nando Wiggins on 10-22-2024 Urea nitrogen [Mass/Vol] 56 mg/dL High 4-19 [facility] Sodium levelOrdered By: Deb Wiggins on 10-22-2024 Sodium [Moles/Vol] 134 mmol/L 133-145 [facility] White blood cell (WBC) count Ordered By: Nando Wiggins on 10-22-2024 WBC (Bld) [#/Vol] 8.9 10*3/uL 4.4-11.0 [facility] Surgery Visit Reporton 10-17 Surgery Visit Report Normal [facility] Absolute lymphocyte countOrd ered By: Nando Wiggins on 10-16-2024 Lymphocytes Auto (Unsp spec) [#/Vol] 1.40 10*3/uL 0.83-4.51 [facility] Anion gap in Serum or Plasma Ordered By: Nando Wiggins on 10-16-2024 Anion gap [Moles/Vol] 14 mmol/L 5-15 [facility] Automated lymphocyte count a s percentage of total leukocytesOrdered By: Nando Wiggins on 10-16-2024 Lymphocytes/100 WBC Auto (Unsp spec) 15.9 % Low 19-41 [facility] BUN/creatinine ratioOrdered By: biancaoffutt afbwolf Wiggins on 10-16-2024 Urea nitrogen/Creatinine [Mass ratio] 13.8 mg/mg 10-20 [facility] Basophil percentageOrdered B y: Deboffutt afbwolf Wiggins on 10-16-2024 Basophils/100 WBC (Bld) 0.7 % 0-1 [facility] Carbon dioxide, total [Moles /volume] in Central venous bloodOrdered By: [facility] Center[facility] Wigg[facility] on 10-16-2024 CO2 [Moles/Vol] 27.7 mmol/L 21.0-32.0 [facility] Chloride assayOrdered By: Kathie Wiggins on 10-16-2024 Chloride [Moles/Vol] 93 mmol/L Low 98-108 [facility] Eosinophil percentageOrdered By: biancaoffutt afbwolf Wiggins on 10-16-2024 Eosinophils/100 WBC (Bld) 2.7 % 0-5 [facility] Erythrocyte distribution wid th ratioOrdered By: biancaoffutt afbwolf Wiggins on 10-16-2024 Erythrocyte distribution width (RBC) [Ratio] 15.8 % High 11.6-14.6 [facility] Erythrocyte distribution wid th standard deviationOrdered By: biancaoffutt afbwolf Wiggins on 10-16-2024 Erythrocyte distribution width (RBC) [Ratio] 52.2 fl High 35.1-43.9 [facility] Glomerular filtration rate ( GFR) estimation/1.73 sq m using serum, plasma, or whole bOrdered By: Nando Wiggins on 10-16-2024 GFR/1.73 sq M.predicted among non-blacks MDRD (S/P/Bld) [Vol rate/Area] 9 mL/min/{1.73_m2} Low >60 [facility] Hematocrit Auto (Bld) [Volum e fraction]Ordered By: Nando Wiggins on 10-16-2024 Hematocrit (Bld) [Volume fraction] 34.0 % Low 40-54 [facility] Hemoglobin measurementOrdere d By: Debsrinathwolf Edenlakshmidesiree on 10-16-2024 Hemoglobin (Bld) [Mass/Vol] 10.4 g/dL Low 13.0-16.5 [facility] Immature granulocytes/100 WB C Auto (Bld)Ordered By: Nando Wiggins on 10-16-2024 Immature granulocytes/100 WBC (Bld) 0.300 % 0.0-0.9 [facility] MCV (mean corpuscular volume ) determinationOrdered By: Nando Wiggins on 10-16-2024 MCV (RBC) [Entitic vol] 90.2 fL 80-94 [facility] Mean corpuscular hemoglobin (MCH) determinationOrdered By: Nando Wiggins on 10-16-2024 MCH (RBC) [Entitic mass] 27.6 pg 27.0-32.0 [facility] Monocyte percentageOrdered B y: Nando Wiggins on 10-16-2024 Monocytes/100 WBC (Bld) 9.3 % 0-10 [facility] Neutrophil percentageOrdered By: biancasrinathwolf Edenlakshmidesiree on 10-16-2024 Neutrophils/100 WBC (Bld) 71.1 % High 47-70 [facility] Platelet countOrdered By: Kathie rehanwolf Edenlakshmidesiree on 10-16-2024 Platelets (Bld) [#/Vol] 152 10*3/uL 150-450 [facility] Potassium measurement (mass/ volume)Ordered By: Nando Wiggins on 10-16-2024 Potassium (Unsp spec) [Mass/Vol] 4.6 mmol/L 3.3-5.1 [facility] RBC Auto (Bld) [#/Vol]Ordere d By: Nando Wiggins on 10-16-2024 RBC (Bld) [#/Vol] 3.77 10*6/uL Low 4.6-6.2 [facility] Serum creatinine measurement (mass/volume)Ordered By: Nando Wiggins on 10-16-2024 Creatinine [Mass/Vol] 5.65 mg/dL High 0.70-1.20 [facility] Serum glucose measurement (m ass/volume)Ordered By: Kathiefili Wiggins on 10-16-2024 Glucose [Mass/Vol] 169 mg/dL High 70-99 [facility] Serum or plasma calcium lilli urement (mass/volume)Ordered By: Nando Wiggins on 10-16-2024 Calcium [Mass/Vol] 8.9 mg/dL 7.6-11.0 [facility] Serum or plasma urea nitroge n measurement (mass/volume)Ordered By: Nando Wiggins on 10-16-2024 Urea nitrogen [Mass/Vol] 78 mg/dL High 4-19 [facility] Sodium levelOrdered By: Deb lilian Meeklakshmidesiree on 10-16-2024 Sodium [Moles/Vol] 135 mmol/L 133-145 [facility] White blood cell (WBC) count Ordered By: Nando Wiggins on 10-16-2024 WBC (Bld) [#/Vol] 8.8 10*3/uL 4.4-11.0 [facility] Absolute lymphocyte countOrd ered By: Nando Wiggins on 10-08-2024 Lymphocytes Auto (Unsp spec) [#/Vol] 1.87 10*3/uL 0.83-4.51 [facility] Anion gap in Serum or Plasma Ordered By: Nando Wiggins on 10-08-2024 Anion gap [Moles/Vol] 13 mmol/L 5-15 [facility] Automated lymphocyte count a s percentage of total leukocytesOrdered By: Nando Wiggins on 10-08-2024 Lymphocytes/100 WBC Auto (Unsp spec) 27.5 % - [facility] BUN/creatinine ratioOrdered By: Nando Wiggins on 10-08-2024 Urea nitrogen/Creatinine [Mass ratio] 13.2 mg/mg 10-20 [facility] Basophil percentageOrdered B y: Nando Wiggins on 10-08-2024 Basophils/100 WBC (Bld) 1.0 % 0-1 [facility] Carbon dioxide, total [Moles /volume] in Central venous bloodOrdered By: Nando Wiggins on 10-08-2024 CO2 [Moles/Vol] 26.7 mmol/L 21.0-32.0 [facility] Chloride assayOrdered By: Kathie Wiggins on 10-08-2024 Chloride [Moles/Vol] 95 mmol/L Low 98-108 [facility] Eosinophil percentageOrdered By: Nando Wiggins on 10-08-2024 Eosinophils/100 WBC (Bld) 2.9 % 0-5 [facility] Erythrocyte distribution wid th ratioOrdered By: Nando Wiggins on 10-08-2024 Erythrocyte distribution width (RBC) [Ratio] 16.0 % High 11.6-14.6 [facility] Erythrocyte distribution wid th standard deviationOrdered By: Nando Wiggins on 10-08-2024 Erythrocyte distribution width (RBC) [Ratio] 54.2 fl High 35.1-43.9 [facility] Glomerular filtration rate ( GFR) estimation/1.73 sq m using serum, plasma, or whole bOrdered By: Nando Wiggins on 10-08-2024 GFR/1.73 sq M.predicted among non-blacks MDRD (S/P/Bld) [Vol rate/Area] 12 mL/min/{1.73_m2} Low >60 [facility] Hematocrit Auto (Bld) [Volum e fraction]Ordered By: Nando Wiggins on 10-08-2024 Hematocrit (Bld) [Volume fraction] 35.5 % Low 40-54 [facility] Hemoglobin measurementOrdere d By: Nando Wiggins on 10-08-2024 Hemoglobin (Bld) [Mass/Vol] 10.7 g/dL Low 13.0-16.5 [facility] Immature granulocytes/100 WB C Auto (Bld)Ordered By: Nando Wiggins on 10-08-2024 Immature granulocytes/100 WBC (Bld) 0.400 % 0.0-0.9 [facility] MCV (mean corpuscular volume ) determinationOrdered By: Nando Wiggins on 10-08-2024 MCV (RBC) [Entitic vol] 91.0 fL 80-94 [facility] Mean corpuscular hemoglobin (MCH) determinationOrdered By: Nando Wiggins on 10-08-2024 MCH (RBC) [Entitic mass] 27.4 pg 27.0-32.0 [facility] Monocyte percentageOrdered B y: Nando Wiggins on 10-08-2024 Monocytes/100 WBC (Bld) 8.2 % 0-10 [facility] Neutrophil percentageOrdered By: Kathiefili Wiggins on 10-08-2024 Neutrophils/100 WBC (Bld) 60.0 % 47-70 [facility] Platelet countOrdered By: Kathie rehanwolf Wiggins on 10-08-2024 Platelets (Bld) [#/Vol] 164 10*3/uL 150-450 [facility] Potassium measurement (mass/ volume)Ordered By: Nando Wiggins on 10-08-2024 Potassium (Unsp spec) [Mass/Vol] 4.1 mmol/L 3.3-5.1 [facility] RBC Auto (Bld) [#/Vol]Ordere d By: Debsrinathwolf Wiggins on 10-08-2024 RBC (Bld) [#/Vol] 3.90 10*6/uL Low 4.6-6.2 [facility] Serum creatinine measurement (mass/volume)Ordered By: Nando Wiggins on 10-08-2024 Creatinine [Mass/Vol] 4.42 mg/dL High 0.70-1.20 [facility] Serum glucose measurement (m ass/volume)Ordered By: Nando Wiggins on 10-08-2024 Glucose [Mass/Vol] 177 mg/dL High 70-99 [facility] Serum or plasma calcium lilli urement (mass/volume)Ordered By: Nando Wiggins on 10-08-2024 Calcium [Mass/Vol] 9.2 mg/dL 7.6-11.0 [facility] Serum or plasma urea nitroge n measurement (mass/volume)Ordered By: Nando Wiggins on 10-08-2024 Urea nitrogen [Mass/Vol] 59 mg/dL High 4-19 [facility] Sodium levelOrdered By: Deb lilian Rosalie on 10-08-2024 Sodium [Moles/Vol] 135 mmol/L 133-145 [facility] White blood cell (WBC) count Ordered By: Nando Wiggins on 10-08-2024 WBC (Bld) [#/Vol] 6.8 10*3/uL 4.4-11.0 [facility] Surgery Visit Reporton 10-03 Surgery Visit Report Normal [facility] Absolute lymphocyte countOrd ered By: Nando Wiggins on 10-02-2024 Lymphocytes Auto (Unsp spec) [#/Vol] 1.76 10*3/uL 0.83-4.51 [facility] Anion gap in Serum or Plasma Ordered By: Nando Wiggins on 10-02-2024 Anion gap [Moles/Vol] 14 mmol/L 5-15 [facility] Automated lymphocyte count a s percentage of total leukocytesOrdered By: Nando Wiggins on 10-02-2024 Lymphocytes/100 WBC Auto (Unsp spec) 25.6 % 19-41 [facility] BUN/creatinine ratioOrdered By: Nando Wiggins on 10-02-2024 Urea nitrogen/Creatinine [Mass ratio] 17.4 mg/mg 10-20 [facility] Basophil percentageOrdered B y: Nando Wiggins on 10-02-2024 Basophils/100 WBC (Bld) 1.0 % 0-1 [facility] Carbon dioxide, total [Moles /volume] in Central venous bloodOrdered By: Nando Wiggins on 10-02-2024 CO2 [Moles/Vol] 26.5 mmol/L 21.0-32.0 [facility] Chloride assayOrdered By: Kathie Wiggins on 10-02-2024 Chloride [Moles/Vol] 90 mmol/L Low 98-108 [facility] Eosinophil percentageOrdered By: Nando Wiggins on 10-02-2024 Eosinophils/100 WBC (Bld) 2.5 % 0-5 [facility] Erythrocyte distribution wid th ratioOrdered By: Nando Wiggins on 10-02-2024 Erythrocyte distribution width (RBC) [Ratio] 16.2 % High 11.6-14.6 [facility] Erythrocyte distribution wid th standard deviationOrdered By: Nando Wiggins on 10-02-2024 Erythrocyte distribution width (RBC) [Ratio] 54.6 fl High 35.1-43.9 [facility] Glomerular filtration rate ( GFR) estimation/1.73 sq m using serum, plasma, or whole bOrdered By: Nando Wiggins on 10-02-2024 GFR/1.73 sq M.predicted among non-blacks MDRD (S/P/Bld) [Vol rate/Area] 10 mL/min/{1.73_m2} Low >60 [facility] Hematocrit Auto (Bld) [Volum e fraction]Ordered By: Nando Wiggins on 10-02-2024 Hematocrit (Bld) [Volume fraction] 35.1 % Low 40-54 [facility] Hemoglobin measurementOrdere d By: Nando Wiggins on 10-02-2024 Hemoglobin (Bld) [Mass/Vol] 10.5 g/dL Low 13.0-16.5 [facility] Immature granulocytes/100 WB C Auto (Bld)Ordered By: Nando Wiggins on 10-02-2024 Immature granulocytes/100 WBC (Bld) 0.300 % 0.0-0.9 [facility] MCV (mean corpuscular volume ) determinationOrdered By: Nando Wiggins on 10-02-2024 MCV (RBC) [Entitic vol] 91.4 fL 80-94 [facility] Mean corpuscular hemoglobin (MCH) determinationOrdered By: Nando Wiggins on 10-02-2024 MCH (RBC) [Entitic mass] 27.3 pg 27.0-32.0 [facility] Monocyte percentageOrdered B y: Nando Wiggins on 10-02-2024 Monocytes/100 WBC (Bld) 10.5 % High 0-10 [facility] Neutrophil percentageOrdered By: Nando Wiggins on 10-02-2024 Neutrophils/100 WBC (Bld) 60.1 % 47-70 [facility] Platelet countOrdered By: Kathie Edenlakshmidesiree on 10-02-2024 Platelets (Bld) [#/Vol] 158 10*3/uL 150-450 [facility] Potassium measurement (mass/ volume)Ordered By: Ktahiebiancasrinathwolf Edenlakshmidesiree on 10-02-2024 Potassium (Unsp spec) [Mass/Vol] 4.3 mmol/L 3.3-5.1 [facility] RBC Auto (Bld) [#/Vol]Ordere d By: Deblilian Meekcheko on 10-02-2024 RBC (Bld) [#/Vol] 3.84 10*6/uL Low 4.6-6.2 [facility] Serum creatinine measurement (mass/volume)Ordered By: Debsrinathwolf Edenlakshmidesiree on 10-02-2024 Creatinine [Mass/Vol] 5.22 mg/dL High 0.70-1.20 [facility] Serum glucose measurement (m ass/volume)Ordered By: Nando Wiggins on 10-02-2024 Glucose [Mass/Vol] 346 mg/dL High 70-99 [facility] Serum or plasma calcium lilli urement (mass/volume)Ordered By: Kathiebiancalilian Meeklakshmidesiree on 10-02-2024 Calcium [Mass/Vol] 9.0 mg/dL 7.6-11.0 [facility] Serum or plasma urea nitroge n measurement (mass/volume)Ordered By: Nando Edenlakshmidesiree on 10-02-2024 Urea nitrogen [Mass/Vol] 91 mg/dL High 4-19 [facility] Sodium levelOrdered By: Kathiebianca lilian Rosalie on 10-02-2024 Sodium [Moles/Vol] 131 mmol/L Low 133-145 [facility] White blood cell (WBC) count Ordered By: Kathiebiancasrinathwolf Edenlakshmidesiree on 10-02-2024 WBC (Bld) [#/Vol] 6.9 10*3/uL 4.4-11.0 [facility] Absolute lymphocyte countOrd ered By: Kathiebiancasrinathwolf Edenlakshmidesiree on 09-24-2024 Lymphocytes Auto (Unsp spec) [#/Vol] 1.75 10*3/uL 0.83-4.51 [facility] Anion gap in Serum or Plasma Ordered By: Nando Wiggins on 09-24-2024 Anion gap [Moles/Vol] 14 mmol/L 5-15 [facility] Automated lymphocyte count a s percentage of total leukocytesOrdered By: Nando Wiggins on 09-24-2024 Lymphocytes/100 WBC Auto (Unsp spec) 25.8 % 19-41 [facility] BUN/creatinine ratioOrdered By: Nando Wiggins on 09-24-2024 Urea nitrogen/Creatinine [Mass ratio] 12.6 mg/mg 10-20 [facility] Basophil percentageOrdered B y: Nando Wiggins on 09-24-2024 Basophils/100 WBC (Bld) 0.7 % 0-1 [facility] Carbon dioxide, total [Moles /volume] in Central venous bloodOrdered By: Nando Wiggins on 09-24-2024 CO2 [Moles/Vol] 26.2 mmol/L 21.0-32.0 [facility] Chloride assayOrdered By: Kathie Wiggins on 09-24-2024 Chloride [Moles/Vol] 93 mmol/L Low 98-108 [facility] Eosinophil percentageOrdered By: Nando Wiggins on 09-24-2024 Eosinophils/100 WBC (Bld) 2.7 % 0-5 [facility] Erythrocyte distribution wid th ratioOrdered By: Nando Wiggins on 09-24-2024 Erythrocyte distribution width (RBC) [Ratio] 17.2 % High 11.6-14.6 [facility] Erythrocyte distribution wid th standard deviationOrdered By: Nando Wiggins on 09-24-2024 Erythrocyte distribution width (RBC) [Ratio] 58.0 fl High 35.1-43.9 [facility] Glomerular filtration rate ( GFR) estimation/1.73 sq m using serum, plasma, or whole bOrdered By: Nando Wiggins on 09-24-2024 GFR/1.73 sq M.predicted among non-blacks MDRD (S/P/Bld) [Vol rate/Area] 13 mL/min/{1.73_m2} Low >60 [facility] Hematocrit Auto (Bld) [Volum e fraction]Ordered By: Nando Wiggins on 09-24-2024 Hematocrit (Bld) [Volume fraction] 34.6 % Low 40-54 [facility] Hemoglobin measurementOrdere d By: Debsrinathwolf Wiggins on 09-24-2024 Hemoglobin (Bld) [Mass/Vol] 10.3 g/dL Low 13.0-16.5 [facility] Immature granulocytes/100 WB C Auto (Bld)Ordered By: Nando Wiggins on 09-24-2024 Immature granulocytes/100 WBC (Bld) 0.400 % 0.0-0.9 [facility] MCV (mean corpuscular volume ) determinationOrdered By: Nando Wiggins on 09-24-2024 MCV (RBC) [Entitic vol] 90.8 fL 80-94 [facility] Mean corpuscular hemoglobin (MCH) determinationOrdered By: fili Wiggins on 09-24-2024 MCH (RBC) [Entitic mass] 27.0 pg 27.0-32.0 [facility] Monocyte percentageOrdered B y: Nando Wiggins on 09-24-2024 Monocytes/100 WBC (Bld) 11.8 % High 0-10 [facility] Neutrophil percentageOrdered By: biancaoffutt afbwolf Wiggins on 09-24-2024 Neutrophils/100 WBC (Bld) 58.6 % 47-70 [facility] Platelet countOrdered By: Kathie biancalilian Wiggins on 09-24-2024 Platelets (Bld) [#/Vol] 209 10*3/uL 150-450 [facility] Potassium measurement (mass/ volume)Ordered By: Nando Wiggins on 09-24-2024 Potassium (Unsp spec) [Mass/Vol] 3.4 mmol/L 3.3-5.1 [facility] RBC Auto (Bld) [#/Vol]Ordere d By: Nando Wiggins on 09-24-2024 RBC (Bld) [#/Vol] 3.81 10*6/uL Low 4.6-6.2 [facility] Serum creatinine measurement (mass/volume)Ordered By: Nando Wiggins on 09-24-2024 Creatinine [Mass/Vol] 4.34 mg/dL High 0.70-1.20 [facility] Serum glucose measurement (m ass/volume)Ordered By: Nando Wiggins on 09-24-2024 Glucose [Mass/Vol] 241 mg/dL High 70-99 [facility] Serum or plasma calcium lilli urement (mass/volume)Ordered By: Nando Wiggins on 09-24-2024 Calcium [Mass/Vol] 9.0 mg/dL 7.6-11.0 [facility] Serum or plasma urea nitroge n measurement (mass/volume)Ordered By: Nando Wiggins on 09-24-2024 Urea nitrogen [Mass/Vol] 55 mg/dL High 4-19 [facility] Sodium levelOrdered By: Deb Wiggins on 09-24-2024 Sodium [Moles/Vol] 134 mmol/L 133-145 [facility] White blood cell (WBC) count Ordered By: Nando Wiggins on 09-24-2024 WBC (Bld) [#/Vol] 6.8 10*3/uL 4.4-11.0 [facility] Absolute lymphocyte countOrd ered By: Nando Wiggins on 09-17-2024 Lymphocytes Auto (Unsp spec) [#/Vol] 1.93 10*3/uL 0.83-4.51 [facility] Anion gap in Serum or Plasma Ordered By: Nando Wiggins on 09-17-2024 Anion gap [Moles/Vol] 13 mmol/L 5-15 [facility] Automated lymphocyte count a s percentage of total leukocytesOrdered By: Nando Wiggins on 09-17-2024 Lymphocytes/100 WBC Auto (Unsp spec) 18.7 % Low 19-41 [facility] BUN/creatinine ratioOrdered By: Nando Wiggins on 09-17-2024 Urea nitrogen/Creatinine [Mass ratio] 12.3 mg/mg 10-20 [facility] Basophil percentageOrdered B y: Nando Wiggins on 09-17-2024 Basophils/100 WBC (Bld) 0.7 % 0-1 [facility] Carbon dioxide, total [Moles /volume] in Central venous bloodOrdered By: Nando Wiggins on 09-17-2024 CO2 [Moles/Vol] 27.5 mmol/L 21.0-32.0 [facility] Chloride assayOrdered By: Kathie Wiggins on 09-17-2024 Chloride [Moles/Vol] 93 mmol/L Low 98-108 [facility] Eosinophil percentageOrdered By: Nando Wiggins 09-17-2024 Eosinophils/100 WBC (Bld) 2.3 % 0-5 [facility] Erythrocyte distribution wid th ratioOrdered By: [facility] 09-17-2024 Erythrocyte distribution width (RBC) [Ratio] 17.6 % High 11.6-14.6 [facility] Erythrocyte distribution wid th standard deviationOrdered By: biancaoffutt afbwolf Wiggins 09-17-2024 Erythrocyte distribution width (RBC) [Ratio] 59.3 fl High 35.1-43.9 [facility] Glomerular filtration rate ( GFR) estimation/1.73 sq m using serum, plasma, or whole bOrdered By: fili Wiggins 09-17-2024 GFR/1.73 sq M.predicted among non-blacks MDRD (S/P/Bld) [Vol rate/Area] 13 mL/min/{1.73_m2} Low >60 [facility] Hematocrit Auto (Bld) [Volum e fraction]Ordered By: Nando Wiggins 09-17-2024 Hematocrit (Bld) [Volume fraction] 32.9 % Low 40-54 [facility] Hemoglobin measurementOrdere d By: Nando Wiggins 09-17-2024 Hemoglobin (Bld) [Mass/Vol] 9.7 g/dL Low 13.0-16.5 [facility] Immature granulocytes/100 WB C Auto (Bld)Ordered By: Nando Wiggins 09-17-2024 Immature granulocytes/100 WBC (Bld) 0.400 % 0.0-0.9 [facility] MCV (mean corpuscular volume ) determinationOrdered By: Nando Wiggins 09-17-2024 MCV (RBC) [Entitic vol] 91.9 fL 80-94 [facility] Mean corpuscular hemoglobin (MCH) determinationOrdered By: Kathiebiancasrinathwolf Edencheko on 09-17-2024 MCH (RBC) [Entitic mass] 27.1 pg 27.0-32.0 [facility] Monocyte percentageOrdered B y: Nando Meekcheko on 09-17-2024 Monocytes/100 WBC (Bld) 10.2 % High 0-10 [facility] Neutrophil percentageOrdered By: Nando Meekcheko on 09-17-2024 Neutrophils/100 WBC (Bld) 67.7 % 47-70 [facility] Platelet countOrdered By: Kathie fili Meekcheko on 09-17-2024 Platelets (Bld) [#/Vol] 275 10*3/uL 150-450 [facility] Potassium measurement (mass/ volume)Ordered By: Nando Wiggins on 09-17-2024 Potassium (Unsp spec) [Mass/Vol] 3.3 mmol/L 3.3-5.1 [facility] RBC Auto (Bld) [#/Vol]Ordere d By: Nando eMekcheko on 09-17-2024 RBC (Bld) [#/Vol] 3.58 10*6/uL Low 4.6-6.2 [facility] Serum creatinine measurement (mass/volume)Ordered By: Nando Wiggins on 09-17-2024 Creatinine [Mass/Vol] 4.25 mg/dL High 0.70-1.20 [facility] Serum glucose measurement (m ass/volume)Ordered By: Kathiefili Wiggins on 09-17-2024 Glucose [Mass/Vol] 151 mg/dL High 70-99 [facility] Serum or plasma calcium lilli urement (mass/volume)Ordered By: Kathiebiancasrinathwolf Edenlakshmidesiree on 09-17-2024 Calcium [Mass/Vol] 8.7 mg/dL 7.6-11.0 [facility] Serum or plasma urea nitroge n measurement (mass/volume)Ordered By: Nando Wiggins on 09-17-2024 Urea nitrogen [Mass/Vol] 52 mg/dL High 4-19 [facility] Sodium levelOrdered By: Deb Wiggins on 09-17-2024 Sodium [Moles/Vol] 134 mmol/L 133-145 [facility] White blood cell (WBC) count Ordered By: Nando Wiggins on 09-17-2024 WBC (Bld) [#/Vol] 10.3 10*3/uL 4.4-11.0 [facility] Bilirubin directOrdered By: Nando Wiggins on 09-12-2024 Bilirubin.direct [Mass/Vol] 0.11 mg/dL 0.00-0.30 [facility] Bilirubin, totalOrdered By: Nando Wiggins on 09-12-2024 Bilirubin [Mass/Vol] 0.25 mg/dL 0.00-1.30 [facility] Hemoglobin A1c percentageOrd ered By: Nando Wiggins on 09-12-2024 HbA1c (Bld) [Mass fraction] 6.1 % High <5.7 [facility] No Panel InformationOrdered By: Nando Wiggins on 09-12-2024 16 U/L <38 [facility] Serum globulin measurementOr dered By: Nando Wiggins 09-12-2024 Globulin (S) [Mass/Vol] 3.3 g/dL 2.2-4.2 [facility] Serum or plasma alanine hawkins otransferase (ALT) measurementOrdered By: Nando Wiggins 09-12-2024 ALT [Catalytic activity/Vol] U/L <47 [facility] Serum or plasma albumin lilli urement (mass/volume)Ordered By: Nando Wiggins 09-12-2024 Albumin [Mass/Vol] 2.8 g/dL Low 3.4-4.8 [facility] Serum or plasma alkaline penelope sphatase measurementOrdered By: Nando Wiggins 09-12-2024 ALP [Catalytic activity/Vol] 55 U/L 40-129 [facility] Total proteinOrdered By: Sinan Wiggins on 09-12-2024 Protein [Mass/Vol] 6.0 g/dL 5.9-8.4 [facility] Vitamin B12 ser/plasOrdered By: Nando Wiggins on 09-12-2024 Cobalamin (Vitamin B12) [Mass/Vol] 717 pg/mL 180-914 [facility] Absolute lymphocyte countOrd ered By: Nando Wiggins on 09-10-2024 Lymphocytes Auto (Unsp spec) [#/Vol] 1.78 10*3/uL 0.83-4.51 [facility] Anion gap in Serum or Plasma Ordered By: Nando Wiggins on 09-10-2024 Anion gap [Moles/Vol] 12 mmol/L 5-15 [facility] Automated lymphocyte count a s percentage of total leukocytesOrdered By: Nando Wiggins on 09-10-2024 Lymphocytes/100 WBC Auto (Unsp spec) 21.1 % 19-41 [facility] BUN/creatinine ratioOrdered By: Nando Wiggins on 09-10-2024 Urea nitrogen/Creatinine [Mass ratio] 11.1 mg/mg 10-20 [facility] Basophil percentageOrdered B y: Nando Wiggins on 09-10-2024 Basophils/100 WBC (Bld) 0.7 % 0-1 [facility] Carbon dioxide, total [Moles /volume] in Central venous bloodOrdered By: Nando Wiggins on 09-10-2024 CO2 [Moles/Vol] 27.1 mmol/L 21.0-32.0 [facility] Chloride assayOrdered By: Kathie Wiggins on 09-10-2024 Chloride [Moles/Vol] 94 mmol/L Low 98-108 [facility] Eosinophil percentageOrdered By: Nando Wiggins on 09-10-2024 Eosinophils/100 WBC (Bld) 1.8 % 0-5 [facility] Erythrocyte distribution wid th ratioOrdered By: Nando Wiggins on 09-10-2024 Erythrocyte distribution width (RBC) [Ratio] 17.3 % High 11.6-14.6 [facility] Erythrocyte distribution wid th standard deviationOrdered By: Nando Wiggins on 09-10-2024 Erythrocyte distribution width (RBC) [Ratio] 56.1 fl High 35.1-43.9 [facility] Glomerular filtration rate ( GFR) estimation/1.73 sq m using serum, plasma, or whole bOrdered By: Nando Wiggins on 09-10-2024 GFR/1.73 sq M.predicted among non-blacks MDRD (S/P/Bld) [Vol rate/Area] 14 mL/min/{1.73_m2} Low >60 [facility] Hematocrit Auto (Bld) [Volum e fraction]Ordered By: Nando Wiggins on 09-10-2024 Hematocrit (Bld) [Volume fraction] 29.7 % Low 40-54 [facility] Hemoglobin measurementOrdere d By: Nando Wiggins on 09-10-2024 Hemoglobin (Bld) [Mass/Vol] 9.1 g/dL Low 13.0-16.5 [facility] Immature granulocytes/100 WB C Auto (Bld)Ordered By: Nando Wiggins on 09-10-2024 Immature granulocytes/100 WBC (Bld) 1.200 % High 0.0-0.9 [facility] MCV (mean corpuscular volume ) determinationOrdered By: Nando Wiggins on 09-10-2024 MCV (RBC) [Entitic vol] 88.9 fL 80-94 [facility] Mean corpuscular hemoglobin (MCH) determinationOrdered By: biancaoffutt afbwolf Wiggins on 09-10-2024 MCH (RBC) [Entitic mass] 27.2 pg 27.0-32.0 [facility] Monocyte percentageOrdered B y: Nando Wiggins on 09-10-2024 Monocytes/100 WBC (Bld) 11.2 % High 0-10 [facility] Neutrophil percentageOrdered By: fili Wiggins on 09-10-2024 Neutrophils/100 WBC (Bld) 64.0 % 47-70 [facility] Platelet countOrdered By: Kathie Wiggins on 09-10-2024 Platelets (Bld) [#/Vol] 305 10*3/uL 150-450 [facility] Potassium measurement (mass/ volume)Ordered By: Nando Wiggins on 09-10-2024 Potassium (Unsp spec) [Mass/Vol] 3.9 mmol/L 3.3-5.1 [facility] RBC Auto (Bld) [#/Vol]Ordere d By: Nando Wiggins on 09-10-2024 RBC (Bld) [#/Vol] 3.34 10*6/uL Low 4.6-6.2 [facility] Serum creatinine measurement (mass/volume)Ordered By: Kathiefili Wiggins on 09-10-2024 Creatinine [Mass/Vol] 3.98 mg/dL High 0.70-1.20 [facility] Serum glucose measurement (m ass/volume)Ordered By: Nando Wiggins on 09-10-2024 Glucose [Mass/Vol] 117 mg/dL High 70-99 [facility] Serum or plasma calcium lilli urement (mass/volume)Ordered By: biancaoffutt afbwolf Wiggins on 09-10-2024 Calcium [Mass/Vol] 8.9 mg/dL 7.6-11.0 [facility] Serum or plasma urea nitroge n measurement (mass/volume)Ordered By: Nando Edenlakshmidesiree on 09-10-2024 Urea nitrogen [Mass/Vol] 44 mg/dL High 4-19 [facility] Sodium levelOrdered By: Deb quintana Meekcheko on 09-10-2024 Sodium [Moles/Vol] 133 mmol/L 133-145 [facility] White blood cell (WBC) count Ordered By: Kathiefili Edenlakshmidesiree on 09-10-2024 WBC (Bld) [#/Vol] 8.5 10*3/uL 4.4-11.0 [facility] Bedside Glucoseon 09-04-2024 FINGERSTICK GLU 214 mg/dL High 74-106 [facility] Comment on above: Result Comment: FANG GEMENT OF PATIENT CARE PER NURSING PROTOCOL Performed By: #### L 501.080 ####[facility] [address] [place], [address] FINGERSTICK GLU 151 mg/dL High 74-106 [facility] Comment on above: Result Comment: FANG GEMENT OF PATIENT CARE PER NURSING PROTOCOL Performed By: #### L 501.080 ####[facility] [address] [place], [address] [facility] deOrdered By: Earl White on 09-04-2024 Glucose [Mass/Vol] 214 mg/dL High [address] [facility] Absolute lymphocyte countOrd ered By: Salma Cervantes on 09-03-2024 Lymphocytes Auto (Unsp spec) [#/Vol] 1.48 10*3/uL 0.83-4.51 [facility] Automated lymphocyte count a s percentage of total leukocytesOrdered By: Salma Adamshn on 09-03-2024 Lymphocytes/100 WBC Auto (Unsp spec) 19.3 % 19-41 [facility] Basophil percentageOrdered B y: Salma Cervantes on 09-03-2024 Basophils/100 WBC (Bld) 0.5 % 0-1 [facility] Bedside Glucoseon 09-03-2024 FINGERSTICK GLU 219 mg/dL High [address] [place] [address] Comment on above: Result Comment: FANG GEMENT OF PATIENT CARE PER NURSING PROTOCOL Performed By: #### L 501.080 ####[facility] [address] [place], [address] FINGERSTICK GLU 212 mg/dL High [address] [place] [address] Comment on above: Result Comment: FANG GEMENT OF PATIENT CARE PER NURSING PROTOCOL Performed By: #### L 501.080 ####[facility] [address] [facility] [address] FINGERSTICK GLU 172 mg/dL High [address] [place] [address] Comment on above: Result Comment: FANG GEMENT OF PATIENT CARE PER NURSING PROTOCOL Performed By: #### L 501.080 ####[facility] [address] [facility] [address] FINGERSTICK GLU 175 mg/dL High [address] [place] [address] Comment on above: Result Comment: FANG GEMENT OF PATIENT CARE PER NURSING PROTOCOL Performed By: #### L 501.080 ####[facility] [address] [place], [address] CBC W/Diff, Automatedon 08-21 Absolute Lymph 1.48 X10 3/uL Normal 0.83-4.51 [facility] Comment on above: Performed By: #### L 100.0100 ####[facility] [address] [place], [address] Absolute Neut 5.2 X10 3/uL Normal 2.0-7.7 [facility] Comment on above: Performed By: #### L 100.0100 ####[facility] [address] [place], [address] Basophils/100 WBC (Bld) 0.5 % Normal 0-1 [facility] Comment on above: Performed By: #### L 100.0100 ####[facility] [address] [place], [address] Eosinophils/100 WBC (Bld) 2.7 % Normal 0-5 [facility] Comment on above: Performed By: #### L 100.0100 ####[facility] [address] [place], [address] Erythrocyte distribution width (RBC) [Ratio] 16.3 % High 11.6-14.6 [facility] Comment on above: Performed By: #### L 100.0100 ####[facility] [address] [place], [address] Hematocrit (Bld) [Volume fraction] 24.8 % Low 40-54 [facility] Comment on above: Performed By: #### L 100.0100 ####[facility] [address] [place], [address] Hemoglobin (Bld) [Mass/Vol] 7.4 g/dL Low 13.0-16.5 [facility] Comment on above: Performed By: #### L 100.0100 ####[facility] [address] [place], [address] IG% 0.500 Normal 0.0-0.9 [facility] Comment on above: Result Comment: IG% - Immature Granulocytes (promyelocytes, myelocytes andmetamyelocytes) > 1% indicates that a LEFT SHIFT is Present. Performed By: #### L 100.0100 ####[facility] [address] [place], [address] Lymphocytes/100 WBC (Bld) 19.3 % Normal 19-41 [facility] Comment on above: Performed By: #### L 100.0100 ####[facility] [address] [place], [address] MCH (RBC) [Entitic mass] 26.6 pg Low 27.0-32.0 [facility] Comment on above: Performed By: #### L 100.0100 ####[facility] [address] [place], [address] MCHC (RBC) [Mass/Vol] 29.8 g/dL Low 32-36 [facility] Comment on above: Performed By: #### L 100.0100 ####[facility] [address] [place], [address] MCV (RBC) [Entitic vol] 89.2 fL Normal 80-94 [facility] Comment on above: Performed By: #### L 100.0100 ####[facility] [address] [place], [address] Monocytes/100 WBC (Bld) 9.7 % Normal 0-10 [facility] Comment on above: Performed By: #### L 100.0100 ####[facility] [address] [place], [address] Neutrophils/100 WBC (Bld) 67.3 % Normal 47-70 [facility] Comment on above: Performed By: #### L 100.0100 ####[facility] [address] [place], [address] Nucleated RBC (Bld) [#/Vol] 0 10*3/uL Normal 0-5 [facility] Comment on above: Performed By: #### L 100.0100 ####[facility] [address] [place], [address] Platelet mean volume (Bld) [Entitic vol] 10.9 fL Normal 6.2-12.0 [facility] Comment on above: Performed By: #### L 100.0100 ####[facility] [address] [place], [address] Platelets (Bld) [#/Vol] 305 10*3/uL Normal 150-450 [facility] Comment on above: Performed By: #### L 100.0100 ####[facility] [address] [place], [address] RBC (Bld) [#/Vol] 2.78 10*6/uL Low 4.6-6.2 [facility] Comment on above: Performed By: #### L 100.0100 ####[facility] [address] [place], [address] RDW SD 53.4 fl High 35.1-43.9 [facility] Comment on above: Performed By: #### L 100.0100 ####[facility] [address] [place], [address] WBC (Bld) [#/Vol] 7.7 10*3/uL Normal 4.4-11.0 [facility] Comment on above: Performed By: #### L 100.0100 ####[facility] [address] [place], [address] Eosinophil percentageOrdered By: Salma Cervantes on 09-03-2024 Eosinophils/100 WBC (Bld) 2.7 % 0-5 [facility] Erythrocyte distribution wid th ratioOrdered By: Salma Cervantes on 09-03-2024 Erythrocyte distribution width (RBC) [Ratio] 16.3 % High 11.6-14.6 [facility] Erythrocyte distribution wid th standard deviationOrdered By: Salma Cervantes on 09-03-2024 Erythrocyte distribution width (RBC) [Ratio] 53.4 fl High 35.1-43.9 [facility] Hematocrit Auto (Bld) [Volum e fraction]Ordered By: Salma Cervantes on 09-03-2024 Hematocrit (Bld) [Volume fraction] 24.8 % Low 40-54 [facility] Hemoglobin measurementOrdere d By: Salma Cervantes on 09-03-2024 Hemoglobin (Bld) [Mass/Vol] 7.4 g/dL Low 13.0-16.5 [facility] Immature granulocytes/100 WB C Auto (Bld)Ordered By: Salma Cervantes on 09-03-2024 Immature granulocytes/100 WBC (Bld) 0.500 % 0.0-0.9 [facility] MCV (mean corpuscular volume ) determinationOrdered By: Salma Cervantes on 09-03-2024 MCV (RBC) [Entitic vol] 89.2 fL 80-94 [facility] Mean corpuscular hemoglobin (MCH) determinationOrdered By: Salma Cervantes on 09-03-2024 MCH (RBC) [Entitic mass] 26.6 pg Low 27.0-32.0 [facility] Monocyte percentageOrdered B y: Salma Cervantes on 09-03-2024 Monocytes/100 WBC (Bld) 9.7 % 0-10 [facility] Neutrophil percentageOrdered By: Salma Cervantes on 09-03-2024 Neutrophils/100 WBC (Bld) 67.3 % 47-70 [facility] Platelet countOrdered By: Xavier Cervantes on 09-03-2024 Platelets (Bld) [#/Vol] 305 10*3/uL 150-450 [facility] RBC Auto (Bld) [#/Vol]Ordere d By: Salma Cervantes on 09-03-2024 RBC (Bld) [#/Vol] 2.78 10*6/uL Low 4.6-6.2 [facility] White blood cell (WBC) count Ordered By: Salma Cervantes on 09-03-2024 WBC (Bld) [#/Vol] 7.7 10*3/uL 4.4-11.0 [facility] Anion gap in Serum or Plasma Ordered By: Salma Cervantes on 09-02-2024 Anion gap [Moles/Vol] 12 mmol/L - [facility] BUN/creatinine ratioOrdered By: Salma Cervantes on 09-02-2024 Urea nitrogen/Creatinine [Mass ratio] 13.7 mg/mg - [facility] Basic Metabolic Profile (BMP )on 09-02-2024 BUN/CRE 13.7 RATIO Normal - [facility] Comment on above: Performed By: #### L 500.2500 ####[facility] [address] [place], [address] Calcium [Mass/Vol] 8.7 mg/dL Normal 7.6-11.0 [facility] Comment on above: Performed By: #### L 500.2500 ####[facility] [address] [place], [address] Chloride [Moles/Vol] 96 mmol/L Low 98-108 [facility] Comment on above: Performed By: #### L 500.2500 ####[facility] [address] [place], [address] CO2 [Moles/Vol] 23.2 mmol/L Normal 21.0-32.0 [facility] Comment on above: Performed By: #### L 500.2500 ####[facility] [address] [place], [address] Creatinine [Mass/Vol] 4.19 mg/dL High 0.70-1.20 [facility] Comment on above: Performed By: #### L 500.2500 ####[facility] [address] [place], [address] ECRCL 13.21 ml/min Low 50-250 [facility] Comment on above: Performed By: #### L 500.2500 ####[facility] [address] [place], [address] GAP 12 Normal 5-15 [facility] Comment on above: Performed By: #### L 500.2500 ####[facility] [address] [place], [address] GFR/1.73 sq M.predicted among non-blacks MDRD (S/P/Bld) [Vol rate/Area] 13 mL/min/{1.73_m2} Low >60 [facility] Comment on above: Result Comment: mL/m in/1.73m2 CKD-EPI Creatinine Equation (2020) Performed By: #### L 500.2500 ####[facility] [address] [place], [address] Glucose [Mass/Vol] 186 mg/dL High 70-99 [facility] Comment on above: Performed By: #### L 500.2500 ####[facility] [address] [place], [address] Potassium [Moles/Vol] 4.8 mmol/L Normal 3.3-5.1 [facility] Comment on above: Performed By: #### L 500.2500 ####[facility] [address] [place], [address] Sodium [Moles/Vol] 131 mmol/L Low 133-145 [facility] Comment on above: Performed By: #### L 500.2500 ####[facility] [address] [place], [address] Urea nitrogen [Mass/Vol] 57 mg/dL High 4-19 [facility] Comment on above: Performed By: #### L 500.2500 ####[facility] [address] [place], [address] Bedside Glucoseon 09-02-2024 FINGERSTICK GLU 212 mg/dL High 74-106 [facility] Comment on above: Result Comment: FANG GEMENT OF PATIENT CARE PER NURSING PROTOCOL Performed By: #### L 501.080 ####[facility] [address] [place], [address] FINGERSTICK GLU 183 mg/dL High 74-106 [facility] Comment on above: Result Comment: FANG GEMENT OF PATIENT CARE PER NURSING PROTOCOL Performed By: #### L 501.080 ####[facility] [address] [place], [address] FINGERSTICK GLU 219 mg/dL High -106 [facility] Comment on above: Result Comment: FANG GEMENT OF PATIENT CARE PER NURSING PROTOCOL Performed By: #### L 501.080 ####[facility] [address] [place], [address] FINGERSTICK GLU 177 mg/dL High 74-106 [facility] Comment on above: Result Comment: FANG GEMENT OF PATIENT CARE PER NURSING PROTOCOL Performed By: #### L 501.080 ####[facility] [address] [place], [address] CBC W/Diff, Automatedon 04- Absolute Lymph 1.42 X10 3/uL Normal 0.83-4.51 [facility] Comment on above: Performed By: #### L 100.0100 ####[facility] [address] [place], [address] Absolute Neut 4.8 X10 3/uL Normal 2.0-7.7 [facility] Comment on above: Performed By: #### L 100.0100 ####[facility] [address] [place], [address] Basophils/100 WBC (Bld) 0.4 % Normal 0-1 [facility] Comment on above: Performed By: #### L 100.0100 ####[facility] [address] [place], [address] Eosinophils/100 WBC (Bld) 3.2 % Normal 0-5 [facility] Comment on above: Performed By: #### L 100.0100 ####[facility] [address] [place], [address] Erythrocyte distribution width (RBC) [Ratio] 16.0 % High 11.6-14.6 [facility] Comment on above: Performed By: #### L 100.0100 ####[facility] [address] [place], [address] Hematocrit (Bld) [Volume fraction] 25.8 % Low 40-54 [facility] Comment on above: Performed By: #### L 100.0100 ####[facility] [address] [place], [address] Hemoglobin (Bld) [Mass/Vol] 7.8 g/dL Low 13.0-16.5 [facility] Comment on above: Performed By: #### L 100.0100 ####[facility] [address] [place], [address] IG% 0.400 Normal 0.0-0.9 [facility] Comment on above: Result Comment: IG% - Immature Granulocytes (promyelocytes, myelocytes andmetamyelocytes) > 1% indicates that a LEFT SHIFT is Present. Performed By: #### L 100.0100 ####[facility] [address] [place], [address] Lymphocytes/100 WBC (Bld) 19.9 % Normal 19-41 [facility] Comment on above: Performed By: #### L 100.0100 ####[facility] [address] [place], [address] MCH (RBC) [Entitic mass] 27.2 pg Normal 27.0-32.0 [facility] Comment on above: Performed By: #### L 100.0100 ####[facility] [address] [place], [address] MCHC (RBC) [Mass/Vol] 30.2 g/dL Low 32-36 [facility] Comment on above: Performed By: #### L 100.0100 ####[facility] [address] [place], [address] MCV (RBC) [Entitic vol] 89.9 fL Normal 80-94 [facility] Comment on above: Performed By: #### L 100.0100 ####[facility] [address] [place], [address] Monocytes/100 WBC (Bld) 9.1 % Normal 0-10 [facility] Comment on above: Performed By: #### L 100.0100 ####[facility] [address] [place], [address] Neutrophils/100 WBC (Bld) 67.0 % Normal 47-70 [facility] Comment on above: Performed By: #### L 100.0100 ####[facility] [address] [place], [address] Nucleated RBC (Bld) [#/Vol] 0 10*3/uL Normal 0-5 [facility] Comment on above: Performed By: #### L 100.0100 ####[facility] [address] [place], [address] Platelet mean volume (Bld) [Entitic vol] 10.6 fL Normal 6.2-12.0 [facility] Comment on above: Performed By: #### L 100.0100 ####[facility] [address] [place], [address] Platelets (Bld) [#/Vol] 284 10*3/uL Normal 150-450 [facility] Comment on above: Performed By: #### L 100.0100 ####[facility] [address] [place], [address] RBC (Bld) [#/Vol] 2.87 10*6/uL Low 4.6-6.2 [facility] Comment on above: Performed By: #### L 100.0100 ####[facility] [address] [place], [address] RDW SD 52.3 fl High 35.1-43.9 [facility] Comment on above: Performed By: #### L 100.0100 ####[facility] [address] [place], [address] WBC (Bld) [#/Vol] 7.2 10*3/uL Normal 4.4-11.0 [facility] Comment on above: Performed By: #### L 100.0100 ####[facility] [address] [place], [address] Carbon dioxide, total [Moles /volume] in Central venous bloodOrdered By: Salma Cervantes on 09-02-2024 CO2 [Moles/Vol] 23.2 mmol/L 21.0-32.0 [facility] Chloride assayOrdered By: Xavier Cervantes on 09-02-2024 Chloride [Moles/Vol] 96 mmol/L Low 98-108 [facility] Glomerular filtration rate ( GFR) estimation/1.73 sq m using serum, plasma, or whole bOrdered By: Salma Cervantes on 09-02-2024 GFR/1.73 sq M.predicted among non-blacks MDRD (S/P/Bld) [Vol rate/Area] 13 mL/min/{1.73_m2} Low >60 [facility] Potassium measurement (mass/ volume)Ordered By: Salma Cervantes on 09-02-2024 Potassium (Unsp spec) [Mass/Vol] 4.8 mmol/L 3.3-5.1 [facility] Serum creatinine measurement (mass/volume)Ordered By: Salma Cervantes on 09-02-2024 Creatinine [Mass/Vol] 4.19 mg/dL High 0.70-1.20 [facility] Serum glucose measurement (m ass/volume)Ordered By: Salma Billy on 09-02-2024 Glucose [Mass/Vol] 186 mg/dL High 70-99 [facility] Serum or plasma calcium lilli urement (mass/volume)Ordered By: Salmavito Cervantes on 09-02-2024 Calcium [Mass/Vol] 8.7 mg/dL 7.6-11.0 [facility] Serum or plasma urea nitroge n measurement (mass/volume)Ordered By: Salma Cervantes on 09-02-2024 Urea nitrogen [Mass/Vol] 57 mg/dL High 4-19 [facility] Sodium levelOrdered By: Juanlena samano Billy on 09-02-2024 Sodium [Moles/Vol] 131 mmol/L Low 133-145 [facility] Bedside Glucoseon 09-01-2024 FINGERSTICK GLU 183 mg/dL High 74-106 [facility] Comment on above: Result Comment: FANG GEMENT OF PATIENT CARE PER NURSING PROTOCOL Performed By: #### L 501.080 ####[facility] [address] [facility] [address] FINGERSTICK GLU 230 mg/dL High 74-106 [facility] Comment on above: Result Comment: FANG GEMENT OF PATIENT CARE PER NURSING PROTOCOL Performed By: #### L 501.080 ####[facility] [address] [facility] [address] FINGERSTICK GLU 103 mg/dL Normal 74-106 [facility] Comment on above: Result Comment: FANG GEMENT OF PATIENT CARE PER NURSING PROTOCOL Performed By: #### L 501.080 ####[facility] [address] [facility] [address] FINGERSTICK GLU 216 mg/dL High 74-106 [facility] Comment on above: Result Comment: FANG GEMENT OF PATIENT CARE PER NURSING PROTOCOL Performed By: #### L 501.080 ####[facility] [address] [place], [address] Serum or plasma vancomycin m easurement (mass/volume)Ordered By: Earl White on 09-01-2024 Vancomycin [Mass/Vol] 14.1 ug/mL 0.0-15.0 [facility] Vancomycin, Random Levelon 0 09-01-2024 VANCO, RANDOM 14.1 ug/mL Normal 0.0-15.0 [facility] Comment on above: Result Comment: VANC OMYCIN STANDARD DRUG THERAPY: CRITICAL VALUE IS > 15.0 mg/LVANCOMYCIN HIGH INTENSITY THERAPY: CRITICAL VALUE IS > 20.0 mg/LPLEASE CONTACT PHARMACY SERVICES (#3620) FOR INTERPRETATIONOF RESULTS. THIS RESULT DOES NOT REPRESENT A PEAK OR TROUGHLEVEL FOR THIS DRUG. Performed By: #### L 501.8850 ####[facility] [address] [place], [address] AV Fistula/Dialysis Graft Sc anon 08-31-2024 AV Fistula/Dialysis Graft Scan Normal [facility] Bedside Glucoseon 08-31-2024 FINGERSTICK GLU 169 mg/dL High 74-106 [facility] Comment on above: Result Comment: FANG GEMENT OF PATIENT CARE PER NURSING PROTOCOL Performed By: #### L 501.080 ####[facility] [address] [place], [address] FINGERSTICK GLU 207 mg/dL High 74-106 [facility] Comment on above: Result Comment: FANG GEMENT OF PATIENT CARE PER NURSING PROTOCOL Performed By: #### L 501.080 ####[facility] [address] [place], [address] FINGERSTICK GLU 162 mg/dL High 74-106 [facility] Comment on above: Result Comment: FANG GEMENT OF PATIENT CARE PER NURSING PROTOCOL Performed By: #### L 501.080 ####[facility] [address] [place], [address] FINGERSTICK GLU 189 mg/dL High 74-106 [facility] Comment on above: Result Comment: AFNG GEMENT OF PATIENT CARE PER NURSING PROTOCOL Performed By: #### L 501.080 ####[facility] [address] [place], [address] CBC W/Diff, Automatedon - Absolute Lymph 1.13 X10 3/uL Normal 0.83-4.51 [facility] Comment on above: Performed By: #### L 100.0100 ####[facility] [address] [place], [address] Absolute Neut 5.3 X10 3/uL Normal 2.0-7.7 [facility] Comment on above: Performed By: #### L 100.0100 ####[facility] [address] [place], [address] Basophils/100 WBC (Bld) 0.6 % Normal 0-1 [facility] Comment on above: Performed By: #### L 100.0100 ####[facility] [address] [place], [address] Eosinophils/100 WBC (Bld) 3.1 % Normal 0-5 [facility] Comment on above: Performed By: #### L 100.0100 ####[facility] [address] [place], [address] Erythrocyte distribution width (RBC) [Ratio] 16.1 % High 11.6-14.6 [facility] Comment on above: Performed By: #### L 100.0100 ####[facility] [address] [place], [address] Hematocrit (Bld) [Volume fraction] 26.1 % Low 40-54 [facility] Comment on above: Performed By: #### L 100.0100 ####[facility] [address] [place], [address] Hemoglobin (Bld) [Mass/Vol] 7.7 g/dL Low 13.0-16.5 [facility] Comment on above: Performed By: #### L 100.0100 ####[facility] [address] [place], [address] IG% 0.500 Normal 0.0-0.9 [facility] Comment on above: Result Comment: IG% - Immature Granulocytes (promyelocytes, myelocytes andmetamyelocytes) > 1% indicates that a LEFT SHIFT is Present. Performed By: #### L 100.0100 ####[facility] [address] [place], [address] Lymphocytes/100 WBC (Bld) 14.5 % Low 19-41 [facility] Comment on above: Performed By: #### L 100.0100 ####[facility] [address] [place], [address] MCH (RBC) [Entitic mass] 27.0 pg Normal 27.0-32.0 [facility] Comment on above: Performed By: #### L 100.0100 ####[facility] [address] [place], [address] MCHC (RBC) [Mass/Vol] 29.5 g/dL Low 32-36 [facility] Comment on above: Performed By: #### L 100.0100 ####[facility] [address] [place], [address] MCV (RBC) [Entitic vol] 91.6 fL Normal 80-94 [facility] Comment on above: Performed By: #### L 100.0100 ####[facility] [address] [place], [address] Monocytes/100 WBC (Bld) 12.9 % High 0-10 [facility] Comment on above: Performed By: #### L 100.0100 ####[facility] [address] [place], [address] Neutrophils/100 WBC (Bld) 68.4 % Normal 47-70 [facility] Comment on above: Performed By: #### L 100.0100 ####[facility] [address] [place], [address] Nucleated RBC (Bld) [#/Vol] 0 10*3/uL Normal 0-5 [facility] Comment on above: Performed By: #### L 100.0100 ####[facility] [address] [place], [address] Platelet mean volume (Bld) [Entitic vol] 10.5 fL Normal 6.2-12.0 [facility] Comment on above: Performed By: #### L 100.0100 ####[facility] [address] [place], [address] Platelets (Bld) [#/Vol] 234 10*3/uL Normal 150-450 [facility] Comment on above: Performed By: #### L 100.0100 ####[facility] [address] [place], [address] RBC (Bld) [#/Vol] 2.85 10*6/uL Low 4.6-6.2 [facility] Comment on above: Performed By: #### L 100.0100 ####[facility] [address] [place], [address] RDW SD 53.4 fl High 35.1-43.9 [facility] Comment on above: Performed By: #### L 100.0100 ####[facility] [address] [place], [address] WBC (Bld) [#/Vol] 7.8 10*3/uL Normal 4.4-11.0 [facility] Comment on above: Performed By: #### L 100.0100 ####[facility] [address] [place], [address] Basic Metabolic Profile (BMP )on 08-30-2024 BUN/CRE 11.0 RATIO Normal 10-20 [facility] Comment on above: Performed By: #### L 500.2500, L100.0100 ####[facility] [address] [place], [address] Calcium [Mass/Vol] 8.7 mg/dL Normal 7.6-11.0 [facility] Comment on above: Performed By: #### L 500.2500, L100.0100 ####[facility] [address] [place], [address] Chloride [Moles/Vol] 92 mmol/L Low 98-108 [facility] Comment on above: Performed By: #### L 500.2500, L100.0100 ####[facility] [address] [place], [address] CO2 [Moles/Vol] 27.5 mmol/L Normal 21.0-32.0 [facility] Comment on above: Performed By: #### L 500.2500, L100.0100 ####[facility] [address] [place], [address] Creatinine [Mass/Vol] 5.42 mg/dL High 0.70-1.20 [facility] Comment on above: Performed By: #### L 500.2500, L100.0100 ####[facility] [address] [place], [address] ECRCL 12.64 ml/min Low 50-250 [facility] Comment on above: Performed By: #### L 500.2500, L100.0100 ####[facility] [address] [place], [address] GAP 14 Normal 5-15 [facility] Comment on above: Performed By: #### L 500.2500, L100.0100 ####[facility] [address] [place], [address] GFR/1.73 sq M.predicted among non-blacks MDRD (S/P/Bld) [Vol rate/Area] 10 mL/min/{1.73_m2} Low >60 [facility] Comment on above: Result Comment: mL/m in/1.73m2 CKD-EPI Creatinine Equation (2020) Performed By: #### L 500.2500, L100.0100 ####[facility] [address] [place], [address] Glucose [Mass/Vol] 196 mg/dL High 70-99 [facility] Comment on above: Performed By: #### L 500.2500, L100.0100 ####[facility] [address] [place], [address] Potassium [Moles/Vol] 5.2 mmol/L High 3.3-5.1 [facility] Comment on above: Performed By: #### L 500.2500, L100.0100 ####[facility] [address] [place], [address] Sodium [Moles/Vol] 134 mmol/L Normal 133-145 [facility] Comment on above: Performed By: #### L 500.2500, L100.0100 ####[facility] [address] [place], [address] Urea nitrogen [Mass/Vol] 60 mg/dL High 4-19 [facility] Comment on above: Performed By: #### L 500.2500, L100.0100 ####[facility] [address] [place], [address] Bedside Glucoseon 08-30-2024 FINGERSTICK GLU 285 mg/dL High 74-106 [facility] Comment on above: Result Comment: FANG ROLANDOENT OF PATIENT CARE PER NURSING PROTOCOL Performed By: #### L 501.080 ####[facility] [address] [place], [address] FINGERSTICK GLU 287 mg/dL High 74-106 [facility] Comment on above: Result Comment: FANG GEMENT OF PATIENT CARE PER NURSING PROTOCOL Performed By: #### L 501.080 ####[facility] [address] [place], [address] FINGERSTICK GLU 192 mg/dL High 74-106 [facility] Comment on above: Result Comment: FANG GEMENT OF PATIENT CARE PER NURSING PROTOCOL Performed By: #### L 501.080 ####[facility] [address] [place], [address] FINGERSTICK GLU 195 mg/dL High 74-106 [facility] Comment on above: Result Comment: FANG GEMENT OF PATIENT CARE PER NURSING PROTOCOL Performed By: #### L 501.080 ####[facility] [address] [place], [address] CBC W/Diff, Automatedon 04- 0-5 Absolute Lymph 1.31 X10 3/uL Normal 0.83-4.51 [facility] Comment on above: Performed By: #### L 500.2500, L100.0100 ####[facility] [address] [place], [address] Absolute Neut 7.1 X10 3/uL Normal 2.0-7.7 [facility] Comment on above: Performed By: #### L 500.2500, L100.0100 ####[facility] [address] [place], [address] Basophils/100 WBC (Bld) 0.5 % Normal 0-1 [facility] Comment on above: Performed By: #### L 500.2500, L100.0100 ####[facility] [address], [address] Eosinophils/100 WBC (Bld) 0.9 % Normal 0-5 [facility] Comment on above: Performed By: #### L 500.2500, L100.0100 ####[facility] [address] [place], [address] Erythrocyte distribution width (RBC) [Ratio] 16.3 % High 11.6-14.6 [facility] Comment on above: Performed By: #### L 500.2500, L100.0100 ####[facility] [address] [place], [address] Hematocrit (Bld) [Volume fraction] 26.9 % Low 40-54 [facility] Comment on above: Performed By: #### L 500.2500, L100.0100 ####[facility] [address] [place], [address] Hemoglobin (Bld) [Mass/Vol] 7.9 g/dL Low 13.0-16.5 [facility] Comment on above: Performed By: #### L 500.2500, L100.0100 ####[facility] [address] [place], [address] IG% 0.600 Normal 0.0-0.9 [facility] Comment on above: Result Comment: IG% - Immature Granulocytes (promyelocytes, myelocytes andmetamyelocytes) > 1% indicates that a LEFT SHIFT is Present. Performed By: #### L 500.2500, L100.0100 ####[facility] [address] [place], [address] Lymphocytes/100 WBC (Bld) 13.4 % Low 19-41 [facility] Comment on above: Performed By: #### L 500.2500, L100.0100 ####[facility] [address] [place], [address] MCH (RBC) [Entitic mass] 26.8 pg Low 27.0-32.0 [facility] Comment on above: Performed By: #### L 500.2500, L100.0100 ####[facility] [address] [place], [address] MCHC (RBC) [Mass/Vol] 29.4 g/dL Low 32-36 [facility] Comment on above: Performed By: #### L 500.2500, L100.0100 ####[facility] [address] [place], [address] MCV (RBC) [Entitic vol] 91.2 fL Normal 80-94 [facility] Comment on above: Performed By: #### L 500.2500, L100.0100 ####[facility] [address] [place], [address] Monocytes/100 WBC (Bld) 12.2 % High 0-10 [facility] Comment on above: Performed By: #### L 500.2500, L100.0100 ####[facility] [address], [address] Neutrophils/100 WBC (Bld) 72.4 % High 47-70 [facility] Comment on above: Performed By: #### L 500.2500, L100.0100 ####[facility] [address], [address] Nucleated RBC (Bld) [#/Vol] 0 10*3/uL Normal 0-5 [facility] Comment on above: Performed By: #### L 500.2500, L100.0100 ####[facility] [address] [place], [address] Platelet mean volume (Bld) [Entitic vol] 10.7 fL Normal 6.2-12.0 [facility] Comment on above: Performed By: #### L 500.2500, L100.0100 ####[facility] [address] [place], [address] Platelets (Bld) [#/Vol] 279 10*3/uL Normal 150-450 [facility] Comment on above: Performed By: #### L 500.2500, L100.0100 ####[facility] [address] [place], [address] RBC (Bld) [#/Vol] 2.95 10*6/uL Low 4.6-6.2 [facility] Comment on above: Performed By: #### L 500.2500, L100.0100 ####[facility] [address] [place], [address] RDW SD 54.3 fl High 35.1-43.9 [facility] Comment on above: Performed By: #### L 500.2500, L100.0100 ####[facility] [address] [place], [address] WBC (Bld) [#/Vol] 9.8 10*3/uL Normal 4.4-11.0 [facility] Comment on above: Performed By: #### L 500.2500, L100.0100 ####[facility] [address] [place], [address] Consultation - Nephrologyon 08-30-2024 Consultation - Nephrology Normal [facility] Vancomycin, Random Levelon 0 08-30-2024 VANCO, RANDOM 12.3 ug/mL Normal 0.0-15.0 [facility] Comment on above: Result Comment: VANC OMYCIN STANDARD DRUG THERAPY: CRITICAL VALUE IS > 15.0 mg/LVANCOMYCIN HIGH INTENSITY THERAPY: CRITICAL VALUE IS > 20.0 mg/LPLEASE CONTACT PHARMACY SERVICES (#5220) FOR INTERPRETATIONOF RESULTS. THIS RESULT DOES NOT REPRESENT A PEAK OR TROUGHLEVEL FOR THIS DRUG. Performed By: #### L 501.8850 ####[facility] [address] [place], [address] Bedside Glucoseon 08-29-2024 FINGERSTICK GLU 218 mg/dL High 74-106 [facility] Comment on above: Result Comment: FANG GEMENT OF PATIENT CARE PER NURSING PROTOCOL Performed By: #### L 501.080 ####[facility] [address] [place], [address] FINGERSTICK GLU 236 mg/dL High 74-106 [facility] Comment on above: Result Comment: FANG GEMENT OF PATIENT CARE PER NURSING PROTOCOL Performed By: #### L 501.080 ####[facility] [address] [place], [address] FINGERSTICK GLU 220 mg/dL High 74-106 [facility] Comment on above: Result Comment: FANG GEMENT OF PATIENT CARE PER NURSING PROTOCOL Performed By: #### L 501.080 ####[facility] [address] [place], [address] FINGERSTICK GLU 175 mg/dL High [address] [place] [address] Comment on above: Result Comment: FANG GEMENT OF PATIENT CARE PER NURSING PROTOCOL Performed By: #### L 501.080 ####[facility] [address] [place], [address] Decalcification bone/plaqueo n 08-29-2024 Decalcification bone/plaque Normal [facility] Comment on above: Performed By: #### P DEC ####[facility] [address] [place], [address] H AND P Exam - Surgicalon H&P Exam - Surgical Normal [facility] MR/POSTOP.ANEon 08-29-2024 MR/POSTOP.ANE Normal [facility] MR/CAEDZDDQ1lh 08-29-2024 MR/POSTOPAN2 Normal [facility] Operative Reporton Operative Report Normal [facility] BRCon 08-28-2024 RC Normal [facility] Comment on above: Result Comment: [id number] AP RC XM COMPATIBLE Performed By: #### B RC, L100.0500, BTSPAT, L500.2500 ####[facility] [address] [place], [address] Basic Metabolic Profile (BMP )on 08-28-2024 BUN/CRE 13.2 RATIO Normal 10-20 [facility] Comment on above: Order Comment: 400.1 Amputation Below Knee (Right) Performed By: #### B RC, L100.0500, BTSPAT, L500.2500 ####[facility] [address] [place], [address] Calcium [Mass/Vol] 9.0 mg/dL Normal 7.6-11.0 [facility] Comment on above: Order Comment: 400.1 Amputation Below Knee (Right) Performed By: #### B RADHA, L100.0500, BTSPAT, L500.2500 ####[facility] [address] [place], [address] Chloride [Moles/Vol] 93 mmol/L Low 98-108 [facility] Comment on above: Order Comment: 400.1 Amputation Below Knee (Right) Performed By: #### B RC, L100.0500, BTSPAT, L500.2500 ####[facility] [address] [place], [address] CO2 [Moles/Vol] 24.9 mmol/L Normal 21.0-32.0 [facility] Comment on above: Order Comment: 400.1 Amputation Below Knee (Right) Performed By: #### B RC, L100.0500, BTSPAT, L500.2500 ####[facility] [address] 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, [address] CBC-Complete Blood Cnt No Di ffon 08-28-2024 Erythrocyte distribution width (RBC) [Ratio] 16.2 % High 11.6-14.6 [facility] Comment on above: Order Comment: 400.1 Performed By: #### B RC, L100.0500, BTSPAT, L500.2500 ####[facility] [address] [place], [address] Hematocrit (Bld) [Volume fraction] 30.6 % Low 40-54 [facility] Comment on above: Order Comment: 400.1 Performed By: #### Too GARCIA, L100.0500, BTSPAT, L500.2500 ####[facility] [address] [place], [address] Hemoglobin (Bld) [Mass/Vol] 9.1 g/dL Low 13.0-16.5 [facility] Comment on above: Order Comment: 400.1 Performed By: #### Too GARCIA, L100.0500, BTSPAT, L500.2500 ####[facility] [address] [place], [address] MCH (RBC) [Entitic mass] 26.9 pg Low 27.0-32.0 [facility] Comment on above: Order Comment: 400.1 Performed By: #### B RC, L100.0500, BTSPAT, L500.2500 ####[facility] [address] [place], [address] MCHC (RBC) [Mass/Vol] 29.7 g/dL Low 32-36 [facility] Comment on above: Order Comment: 400.1 Performed By: #### B RC, L100.0500, BTSPAT, L500.2500 ####[facility] [address] [place], [address] MCV (RBC) [Entitic vol] 90.5 fL Normal 80-94 [facility] Comment on above: Order Comment: 400.1 Performed By: #### B RC, L100.0500, BTSPAT, L500.2500 ####[facility] [address] [place], [address] Platelet mean volume (Bld) [Entitic vol] 10.5 fL Normal 6.2-12.0 [facility] Comment on above: Order Comment: 400.1 Performed By: #### B RC, L100.0500, BTSPAT, L500.2500 ####[facility] [address] [place], [address] Platelets (Bld) [#/Vol] 321 10*3/uL Normal 150-450 [facility] Comment on above: Order Comment: 400.1 Performed By: #### B RC, L100.0500, BTSPAT, L500.2500 ####[facility] [address] [place], [address] RBC (Bld) [#/Vol] 3.38 10*6/uL Low 4.6-6.2 [facility] Comment on above: Order Comment: 400.1 Performed By: #### B RC, L100.0500, BTSPAT, L500.2500 ####[facility] [address] [place], [address] RDW SD 53.1 fl High 35.1-43.9 [facility] Comment on above: Order Comment: 400.1 Performed By: #### B RC, L100.0500, BTSPAT, L500.2500 ####[facility] [address] [place], [address] WBC (Bld) [#/Vol] 9.5 10*3/uL Normal 4.4-11.0 [facility] Comment on above: Order Comment: 400.1 Performed By: #### B RC, L100.0500, BTSPAT, L500.2500 ####[facility] [address] 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, [address] Absolute lymphocyte countOrd ered By: Nando Wiggins on 08-27-2024 Lymphocytes Auto (Unsp spec) [#/Vol] 1.45 10*3/uL 0.83-4.51 [facility] Anion gap in Serum or Plasma Ordered By: Nando Wiggins on 08-27-2024 Anion gap [Moles/Vol] 15 mmol/L 5-15 [facility] Automated lymphocyte count a s percentage of total leukocytesOrdered By: Nando Wiggins on 08-27-2024 Lymphocytes/100 WBC Auto (Unsp spec) 16.0 % Low 19-41 [facility] BUN/creatinine ratioOrdered By: Nando Wiggins on 08-27-2024 Urea nitrogen/Creatinine [Mass ratio] 10.5 mg/mg 10-20 [facility] Basophil percentageOrdered B y: Nando Wiggins on 08-27-2024 Basophils/100 WBC (Bld) 0.6 % 0-1 [facility] Carbon dioxide, total [Moles /volume] in Central venous bloodOrdered By: Nando Wiggins on 08-27-2024 CO2 [Moles/Vol] 26.5 mmol/L 21.0-32.0 [facility] Chloride assayOrdered By: Kathie Wiggins on 08-27-2024 Chloride [Moles/Vol] 94 mmol/L Low 98-108 [facility] Eosinophil percentageOrdered By: Nando Wiggins 08-27-2024 Eosinophils/100 WBC (Bld) 2.3 % 0-5 [facility] Erythrocyte distribution wid th ratioOrdered By: Nando Wiggins on 08-27-2024 Erythrocyte distribution width (RBC) [Ratio] 16.3 % High 11.6-14.6 [facility] Erythrocyte distribution wid th standard deviationOrdered By: Nando Wiggins on 08-27-2024 Erythrocyte distribution width (RBC) [Ratio] 54.3 fl High 35.1-43.9 [facility] Glomerular filtration rate ( GFR) estimation/1.73 sq m using serum, plasma, or whole bOrdered By: Nando Wiggins on 08-27-2024 GFR/1.73 sq M.predicted among non-blacks MDRD (S/P/Bld) [Vol rate/Area] 10 mL/min/{1.73_m2} Low >60 [facility] Hematocrit Auto (Bld) [Volum e fraction]Ordered By: Nando Wiggins on 08-27-2024 Hematocrit (Bld) [Volume fraction] 30.4 % Low 40-54 [facility] Hemoglobin measurementOrdere d By: Nando Wiggins on 08-27-2024 Hemoglobin (Bld) [Mass/Vol] 9.0 g/dL Low 13.0-16.5 [facility] Immature granulocytes/100 WB C Auto (Bld)Ordered By: Nando Wigigns 08-27-2024 Immature granulocytes/100 WBC (Bld) 0.700 % 0.0-0.9 [facility] MCV (mean corpuscular volume ) determinationOrdered By: Nando Wiggins 08-27-2024 MCV (RBC) [Entitic vol] 91.3 fL 80-94 [facility] Mean corpuscular hemoglobin (MCH) determinationOrdered By: Brianowlf Edenlakshmidesiree on 08-27-2024 MCH (RBC) [Entitic mass] 27.0 pg 27.0-32.0 [facility] Monocyte percentageOrdered B y: Nando Wiggins on 08-27-2024 Monocytes/100 WBC (Bld) 10.7 % High 0-10 [facility] Neutrophil percentageOrdered By: Nando Wiggins on 08-27-2024 Neutrophils/100 WBC (Bld) 69.7 % 47-70 [facility] Platelet countOrdered By: Kathie penn Meekcheko on 08-27-2024 Platelets (Bld) [#/Vol] 300 10*3/uL 150-450 [facility] Potassium measurement (mass/ volume)Ordered By: Kathiebiancalilian Meekcheko on 08-27-2024 Potassium (Unsp spec) [Mass/Vol] 3.7 mmol/L 3.3-5.1 [facility] RBC Auto (Bld) [#/Vol]Ordere d By: Nando Wiggins on 08-27-2024 RBC (Bld) [#/Vol] 3.33 10*6/uL Low 4.6-6.2 [facility] Serum creatinine measurement (mass/volume)Ordered By: Kathiebiancalilian Meekcheko on 08-27-2024 Creatinine [Mass/Vol] 5.29 mg/dL High 0.70-1.20 [facility] Serum glucose measurement (m ass/volume)Ordered By: Kathiebiancalilian Meeklakshmidesiree on 08-27-2024 Glucose [Mass/Vol] 261 mg/dL High 70-99 [facility] Serum or plasma calcium lilli urement (mass/volume)Ordered By: Brianwolf Edenlakshmidesiree on 08-27-2024 Calcium [Mass/Vol] 8.8 mg/dL 7.6-11.0 [facility] Serum or plasma urea nitroge n measurement (mass/volume)Ordered By: Brianwolf Edenlakshmiedsiree on 08-27-2024 Urea nitrogen [Mass/Vol] 55 mg/dL High 4-19 [facility] Sodium levelOrdered By: Deb quintana Meekalkshmidesiree on 04-07-2025 Sodium [Moles/Vol] 135 mmol/L 133-145 [facility] White blood cell (WBC) count Ordered By: Nando Wiggins on 08-27-2024 WBC (Bld) [#/Vol] 9.0 10*3/uL 4.4-11.0 [facility] Absolute lymphocyte countOrd ered By: Nando Wiggins on 08-20-2024 Lymphocytes Auto (Unsp spec) [#/Vol] 2.15 10*3/uL 0.83-4.51 [facility] Anion gap in Serum or Plasma Ordered By: Nando Wiggins on 08-20-2024 Anion gap [Moles/Vol] 15 mmol/L 5-15 [facility] Automated lymphocyte count a s percentage of total leukocytesOrdered By: Nando Wiggins on 08-20-2024 Lymphocytes/100 WBC Auto (Unsp spec) 25.2 % 19-41 [facility] BUN/creatinine ratioOrdered By: Nando Wiggins on 08-20-2024 Urea nitrogen/Creatinine [Mass ratio] 12.6 mg/mg 10-20 [facility] Basophil percentageOrdered B y: Nando Wiggins on 08-20-2024 Basophils/100 WBC (Bld) 0.8 % 0-1 [facility] Carbon dioxide, total [Moles /volume] in Central venous bloodOrdered By: Nando Wiggins on 08-20-2024 CO2 [Moles/Vol] 26.9 mmol/L 21.0-32.0 [facility] Chloride assayOrdered By: Kathie Wiggins on 08-20-2024 Chloride [Moles/Vol] 93 mmol/L Low 98-108 [facility] Eosinophil percentageOrdered By: Nando Wiggins on 08-20-2024 Eosinophils/100 WBC (Bld) 2.2 % 0-5 [facility] Erythrocyte distribution wid th ratioOrdered By: Nando Wiggins on 08-20-2024 Erythrocyte distribution width (RBC) [Ratio] 16.0 % High 11.6-14.6 [facility] Erythrocyte distribution wid th standard deviationOrdered By: Nando Wiggins on 08-20-2024 Erythrocyte distribution width (RBC) [Ratio] 54.5 fl High 35.1-43.9 [facility] Glomerular filtration rate ( GFR) estimation/1.73 sq m using serum, plasma, or whole bOrdered By: Nando Wiggins on 08-20-2024 GFR/1.73 sq M.predicted among non-blacks MDRD (S/P/Bld) [Vol rate/Area] 12 mL/min/{1.73_m2} Low >60 [facility] Hematocrit Auto (Bld) [Volum e fraction]Ordered By: Nando Wiggins on 08-20-2024 Hematocrit (Bld) [Volume fraction] 30.9 % Low 40-54 [facility] Hemoglobin measurementOrdere d By: Nando Wiggins on 08-20-2024 Hemoglobin (Bld) [Mass/Vol] 9.2 g/dL Low 13.0-16.5 [facility] Immature granulocytes/100 WB C Auto (Bld)Ordered By: Nando Wiggins on 08-20-2024 Immature granulocytes/100 WBC (Bld) 0.800 % 0.0-0.9 [facility] MCV (mean corpuscular volume ) determinationOrdered By: Nando Wiggins on 08-20-2024 MCV (RBC) [Entitic vol] 92.2 fL 80-94 [facility] Mean corpuscular hemoglobin (MCH) determinationOrdered By: biancaoffutt afbwolf Wiggins on 08-20-2024 MCH (RBC) [Entitic mass] 27.5 pg 27.0-32.0 [facility] Monocyte percentageOrdered B y: Nando Wiggins on 08-20-2024 Monocytes/100 WBC (Bld) 8.3 % 0-10 [facility] Neutrophil percentageOrdered By: fili Wiggins on 08-20-2024 Neutrophils/100 WBC (Bld) 62.7 % 47-70 [facility] Platelet countOrdered By: Kathie Wiggins on 08-20-2024 Platelets (Bld) [#/Vol] 321 10*3/uL 150-450 [facility] Potassium measurement (mass/ volume)Ordered By: Nando Wiggins on 08-20-2024 Potassium (Unsp spec) [Mass/Vol] 4.1 mmol/L 3.3-5.1 [facility] RBC Auto (Bld) [#/Vol]Ordere d By: Nando Wiggins on 08-20-2024 RBC (Bld) [#/Vol] 3.35 10*6/uL Low 4.6-6.2 [facility] Serum creatinine measurement (mass/volume)Ordered By: Nando Wiggins on 08-20-2024 Creatinine [Mass/Vol] 4.37 mg/dL High 0.70-1.20 [facility] Serum glucose measurement (m ass/volume)Ordered By: Nando Wiggins on 08-20-2024 Glucose [Mass/Vol] 85 mg/dL 70-99 [facility] Serum or plasma calcium lilli urement (mass/volume)Ordered By: Nando Wiggins on 08-20-2024 Calcium [Mass/Vol] 9.3 mg/dL 7.6-11.0 [facility] Serum or plasma urea nitroge n measurement (mass/volume)Ordered By: Nando Wiggins on 08-20-2024 Urea nitrogen [Mass/Vol] 55 mg/dL High 4-19 [facility] Sodium levelOrdered By: Deb Wiggins on 08-20-2024 Sodium [Moles/Vol] 134 mmol/L 133-145 [facility] White blood cell (WBC) count Ordered By: Nando Wiggins on 08-20-2024 WBC (Bld) [#/Vol] 8.5 10*3/uL 4.4-11.0 [facility] Absolute lymphocyte countOrd ered By: Nando Wiggins on 08-13-2024 Lymphocytes Auto (Unsp spec) [#/Vol] 1.80 10*3/uL 0.83-4.51 [facility] Anion gap in Serum or Plasma Ordered By: Nando Wiggins on 08-13-2024 Anion gap [Moles/Vol] 15 mmol/L 5-15 [facility] Automated lymphocyte count a s percentage of total leukocytesOrdered By: Nando Wiggins on 08-13-2024 Lymphocytes/100 WBC Auto (Unsp spec) 22.5 % 19-41 [facility] BUN/creatinine ratioOrdered By: Nando Wiggins on 08-13-2024 Urea nitrogen/Creatinine [Mass ratio] 8.8 mg/mg Low 10-20 [facility] Basophil percentageOrdered B y: Nando Wiggins on 08-13-2024 Basophils/100 WBC (Bld) 0.5 % 0-1 [facility] Bilirubin directOrdered By: Nando Wiggins on 08-13-2024 Bilirubin.direct [Mass/Vol] mg/dL 0.00-0.30 [facility] Bilirubin, totalOrdered By: Nando Wiggins on 08-13-2024 Bilirubin [Mass/Vol] 0.25 mg/dL 0.00-1.30 [facility] Carbon dioxide, total [Moles /volume] in Central venous bloodOrdered By: Nando Wiggins on 08-13-2024 CO2 [Moles/Vol] 25.2 mmol/L 21.0-32.0 [facility] Chloride assayOrdered By: Kathie Wiggins on 08-13-2024 Chloride [Moles/Vol] 94 mmol/L Low 98-108 [facility] Eosinophil percentageOrdered By: Nando Wiggins on 08-13-2024 Eosinophils/100 WBC (Bld) 2.6 % 0-5 [facility] Erythrocyte distribution wid th ratioOrdered By: Nando Wiggins on 08-13-2024 Erythrocyte distribution width (RBC) [Ratio] 16.8 % High 11.6-14.6 [facility] Erythrocyte distribution wid th standard deviationOrdered By: Nando Wiggins on 08-13-2024 Erythrocyte distribution width (RBC) [Ratio] 57.7 fl High 35.1-43.9 [facility] Glomerular filtration rate ( GFR) estimation/1.73 sq m using serum, plasma, or whole bOrdered By: Nando Wiggins on 08-13-2024 GFR/1.73 sq M.predicted among non-blacks MDRD (S/P/Bld) [Vol rate/Area] 13 mL/min/{1.73_m2} Low >60 [facility] Hematocrit Auto (Bld) [Volum e fraction]Ordered By: Nando Wiggins on 08-13-2024 Hematocrit (Bld) [Volume fraction] 28.8 % Low 40-54 [facility] Hemoglobin A1c percentageOrd ered By: Nando Wiggins on 08-13-2024 HbA1c (Bld) [Mass fraction] 6.1 % >5.7 [facility] Hemoglobin measurementOrdere d By: Nando Wiggins on 08-13-2024 Hemoglobin (Bld) [Mass/Vol] 8.6 g/dL Low 13.0-16.5 [facility] Immature granulocytes/100 WB C Auto (Bld)Ordered By: Nando Wiggins on 08-13-2024 Immature granulocytes/100 WBC (Bld) 0.400 % 0.0-0.9 [facility] MCV (mean corpuscular volume ) determinationOrdered By: Nando Wiggins on 08-13-2024 MCV (RBC) [Entitic vol] 94.4 fL High 80-94 [facility] Mean corpuscular hemoglobin (MCH) determinationOrdered By: Nando Wiggins on 08-13-2024 MCH (RBC) [Entitic mass] 28.2 pg 27.0-32.0 [facility] Monocyte percentageOrdered B y: Nando Wiggins on 08-13-2024 Monocytes/100 WBC (Bld) 10.7 % High 0-10 [facility] Neutrophil percentageOrdered By: Nando Wiggins on 08-13-2024 Neutrophils/100 WBC (Bld) 63.3 % 47-70 [facility] No Panel InformationOrdered By: Nando Wiggins on 08-13-2024 18 U/L <38 [facility] Platelet countOrdered By: Kathie Wiggins on 08-13-2024 Platelets (Bld) [#/Vol] 265 10*3/uL 150-450 [facility] Potassium measurement (mass/ volume)Ordered By: Nando Wiggins on 08-13-2024 Potassium (Unsp spec) [Mass/Vol] 3.9 mmol/L 3.3-5.1 [facility] RBC Auto (Bld) [#/Vol]Ordere d By: Nando Wiggins on 08-13-2024 RBC (Bld) [#/Vol] 3.05 10*6/uL Low 4.6-6.2 [facility] Serum creatinine measurement (mass/volume)Ordered By: Nando Wiggins on 08-13-2024 Creatinine [Mass/Vol] 4.28 mg/dL High 0.70-1.20 [facility] Serum globulin measurementOr dered By: Nando Wiggins on 08-13-2024 Globulin (S) [Mass/Vol] 3.8 g/dL 2.2-4.2 [facility] Serum glucose measurement (m ass/volume)Ordered By: Nando Wiggins on 08-13-2024 Glucose [Mass/Vol] 96 mg/dL 70-99 [facility] Serum or plasma alanine hawkins otransferase (ALT) measurementOrdered By: Nando Wiggins on 08-13-2024 ALT [Catalytic activity/Vol] 8 U/L <47 [facility] Serum or plasma albumin lilli urement (mass/volume)Ordered By: Nando Wiggins on 08-13-2024 Albumin [Mass/Vol] 2.8 g/dL Low 3.4-4.8 [facility] Serum or plasma alkaline penelope sphatase measurementOrdered By: Nando Wgigins on 08-13-2024 ALP [Catalytic activity/Vol] 56 U/L 40-129 [facility] Serum or plasma calcium lilli urement (mass/volume)Ordered By: Nando Wiggins on 08-13-2024 Calcium [Mass/Vol] 9.0 mg/dL 7.6-11.0 [facility] Serum or plasma urea nitroge n measurement (mass/volume)Ordered By: Nando Wiggins on 08-13-2024 Urea nitrogen [Mass/Vol] 38 mg/dL High 4-19 [facility] Sodium levelOrdered By: Deb Wiggins on 08-13-2024 Sodium [Moles/Vol] 134 mmol/L 133-145 [facility] Total proteinOrdered By: Sinan kermitwolf Wiggins on 08-13-2024 Protein [Mass/Vol] 6.6 g/dL 5.9-8.4 [facility] Vitamin B12 ser/plasOrdered By: Nando Wiggins on 08-13-2024 Cobalamin (Vitamin B12) [Mass/Vol] 782 pg/mL 180-914 [facility] White blood cell (WBC) count Ordered By: Nando Wiggins on 08-13-2024 WBC (Bld) [#/Vol] 8.0 10*3/uL 4.4-11.0 [facility] Absolute lymphocyte countOrd ered By: Nando Wiggins on 08-06-2024 Lymphocytes Auto (Unsp spec) [#/Vol] 1.82 10*3/uL 0.83-4.51 [facility] Anion gap in Serum or Plasma Ordered By: Nando Wiggins on 08-06-2024 Anion gap [Moles/Vol] 14 mmol/L 5-15 [facility] Automated lymphocyte count a s percentage of total leukocytesOrdered By: Nando Wiggins on 08-06-2024 Lymphocytes/100 WBC Auto (Unsp spec) 19.7 % 19-41 [facility] BUN/creatinine ratioOrdered By: Nando Wiggins on 08-06-2024 Urea nitrogen/Creatinine [Mass ratio] 11.0 mg/mg 10-20 [facility] Basophil percentageOrdered B y: Nando Wiggins on 08-06-2024 Basophils/100 WBC (Bld) 0.4 % 0-1 [facility] Carbon dioxide, total [Moles /volume] in Central venous bloodOrdered By: Nando Wiggins on 08-06-2024 CO2 [Moles/Vol] 26.0 mmol/L 21.0-32.0 [facility] Chloride assayOrdered By: Kathie Wiggins on 08-06-2024 Chloride [Moles/Vol] 92 mmol/L Low 98-108 [facility] Eosinophil percentageOrdered By: Nando Wiggins on 08-06-2024 Eosinophils/100 WBC (Bld) 2.6 % 0-5 [facility] Erythrocyte distribution wid th ratioOrdered By: Debsrinathwolf Edenlakshmidesiree on 08-06-2024 Erythrocyte distribution width (RBC) [Ratio] 16.6 % High 11.6-14.6 [facility] Erythrocyte distribution wid th standard deviationOrdered By: fili Wiggins on 08-06-2024 Erythrocyte distribution width (RBC) [Ratio] 56.6 fl High 35.1-43.9 [facility] Glomerular filtration rate ( GFR) estimation/1.73 sq m using serum, plasma, or whole bOrdered By: biancaoffutt afbwolf Wiggins on 08-06-2024 GFR/1.73 sq M.predicted among non-blacks MDRD (S/P/Bld) [Vol rate/Area] 12 mL/min/{1.73_m2} Low >60 [facility] Hematocrit Auto (Bld) [Volum e fraction]Ordered By: Nando Wiggins on 08-06-2024 Hematocrit (Bld) [Volume fraction] 27.3 % Low 40-54 [facility] Hemoglobin measurementOrdere d By: biancaoffutt afbwolf Wiggins on 08-06-2024 Hemoglobin (Bld) [Mass/Vol] 8.1 g/dL Low 13.0-16.5 [facility] Immature granulocytes/100 WB C Auto (Bld)Ordered By: Nando Wiggins on 08-06-2024 Immature granulocytes/100 WBC (Bld) 1.000 % High 0.0-0.9 [facility] MCV (mean corpuscular volume ) determinationOrdered By: Nando Wiggins on 08-06-2024 MCV (RBC) [Entitic vol] 93.5 fL 80-94 [facility] Mean corpuscular hemoglobin (MCH) determinationOrdered By: biancaoffutt afbwolf Wiggnis on 08-06-2024 MCH (RBC) [Entitic mass] 27.7 pg 27.0-32.0 [facility] Monocyte percentageOrdered B y: Nando Wiggins on 08-06-2024 Monocytes/100 WBC (Bld) 12.1 % High 0-10 [facility] Neutrophil percentageOrdered By: Kathiebiancasrinathwolf Edenlakshmidesiree on 08-06-2024 Neutrophils/100 WBC (Bld) 64.2 % 47-70 [facility] Platelet countOrdered By: Kathie rehanwolf Edenlakshmidesiree on 08-06-2024 Platelets (Bld) [#/Vol] 263 10*3/uL 150-450 [facility] Potassium measurement (mass/ volume)Ordered By: Kathiebiancasrinathwolf Edenlakshmidesiree on 08-06-2024 Potassium (Unsp spec) [Mass/Vol] 3.4 mmol/L 3.3-5.1 [facility] RBC Auto (Bld) [#/Vol]Ordere d By: Kathiebiancasrinathwolf Edencheko on 08-06-2024 RBC (Bld) [#/Vol] 2.92 10*6/uL Low 4.6-6.2 [facility] Serum creatinine measurement (mass/volume)Ordered By: Kathiebiancasrinathwolf Edenlakshmidesiree on 08-06-2024 Creatinine [Mass/Vol] 4.43 mg/dL High 0.70-1.20 [facility] Serum glucose measurement (m ass/volume)Ordered By: Kathiebiancasrinathwolf Edenlakshmidesiree on 08-06-2024 Glucose [Mass/Vol] 318 mg/dL High 70-99 [facility] Serum or plasma calcium lilli urement (mass/volume)Ordered By: Kathiebiancasrinathwolf Edenlakshmidesiree on 08-06-2024 Calcium [Mass/Vol] 8.7 mg/dL 7.6-11.0 [facility] Serum or plasma urea nitroge n measurement (mass/volume)Ordered By: Nando Wiggins on 08-06-2024 Urea nitrogen [Mass/Vol] 49 mg/dL High 4-19 [facility] Sodium levelOrdered By: Deb quintana Meeklakshmidesiree on 08-06-2024 Sodium [Moles/Vol] 131 mmol/L Low 133-145 [facility] White blood cell (WBC) count Ordered By: Nando Edenlakshmidesiree on 08-06-2024 WBC (Bld) [#/Vol] 9.3 10*3/uL 4.4-11.0 [facility] Absolute lymphocyte countOrd ered By: Des Garcia on 08-01-2024 Lymphocytes Auto (Unsp spec) [#/Vol] 1.79 10*3/uL 0.83-4.51 [facility] Automated blood erythrocyte countOrdered By: Des Garcia on 08-01-2024 RBC (Bld) [#/Vol] 2.95 10*6/uL Low 4.6-6.2 [facility] Comment on above: Performed By: #### L 100.0100 ####[facility] [address] [facility] [phone] Automated blood hematocrit ( percentage)Ordered By: Des Jallohne on 08-01-2024 Hematocrit (Bld) [Volume fraction] 27.6 % Low 40-54 [facility] Comment on above: Performed By: #### L 100.0100 ####[facility] [address] [place] [id number] Automated lymphocyte count a s percentage of total leukocytesOrdered By: Des Jallohne on 08-01-2024 Lymphocytes/100 WBC Auto (Unsp spec) 20.9 % 19-41 [facility] Basophil percentageOrdered B y: Des Jallohne on 08-01-2024 Basophils/100 WBC (Bld) 0.7 % Normal 0-1 [facility] Comment on above: Performed By: #### L 100.0100 ####[facility] [address] [place] [id number] CBC W/Diff, Automatedon 07-21 Absolute Lymph 1.79 X10 3/uL Normal 0.83-4.51 [facility] Comment on above: Performed By: #### L 100.0100 ####[facility] [address] [facility] [phone] Absolute Neut 5.3 X10 3/uL Normal 2.0-7.7 [facility] Comment on above: Performed By: #### L 100.0100 ####[facility] [address] [facility] [address] IG% 0.500 Normal 0.0-0.9 [facility] Comment on above: Result Comment: IG% - Immature Granulocytes (promyelocytes, myelocytes andmetamyelocytes) > 1% indicates that a LEFT SHIFT is Present. Performed By: #### L 100.0100 ####[facility] [address] [place], [address] Lymphocytes/100 WBC (Bld) 20.9 % Normal 19-41 [facility] Comment on above: Performed By: #### L 100.0100 ####[facility] [address] [place], [address] MCHC (RBC) [Mass/Vol] 29.3 g/dL Low 32-36 [facility] Comment on above: Performed By: #### L 100.0100 ####[facility] [address] [place], [address] Nucleated RBC (Bld) [#/Vol] 0 10*3/uL Normal 0-5 [facility] Comment on above: Performed By: #### L 100.0100 ####[facility] [address] [place], [address] Platelet mean volume (Bld) [Entitic vol] 10.6 fL Normal 6.2-12.0 [facility] Comment on above: Performed By: #### L 100.0100 ####[facility] [address] [place], [address] RDW SD 57.8 fl High 35.1-43.9 [facility] Comment on above: Performed By: #### L 100.0100 ####[facility] [address] [place], [address] Emergency Department Summary on 08-01-2024 Emergency Department Summary Normal [facility] Eosinophil percentageOrdered By: Des Garcia on 08-01-2024 Eosinophils/100 WBC (Bld) 3.9 % Normal 0-5 [facility] Comment on above: Performed By: #### L 100.0100 ####[facility] [address] [place], [place], [phone]) Erythrocyte distribution wid th ratioOrdered By: Des Garcia on 08-01-2024 Erythrocyte distribution width (RBC) [Ratio] 16.9 % High 11.6-14.6 [facility] Comment on above: Performed By: #### L 100.0100 ####[facility] [address] [place], [place], [phone]) Erythrocyte distribution wid th standard deviationOrdered By: Des Garcia on 08-01-2024 Erythrocyte distribution width (RBC) [Ratio] 57.8 fl High 35.1-43.9 [facility] Foot min 3 Viewson 5 Foot min 3 Views Normal [facility] Hemoglobin measurementOrdere d By: Des Garcia on 08-01-2024 Hemoglobin (Bld) [Mass/Vol] 8.1 g/dL Low 13.0-16.5 [facility] Comment on above: Performed By: #### L 100.0100 ####[facility] [address] [place], [place], [phone] Immature granulocytes/100 WB C Auto (Bld)Ordered By: Des Garcia on 08-01-2024 Immature granulocytes/100 WBC (Bld) 0.500 % 0.0-0.9 [facility] MCV (mean corpuscular volume ) determinationOrdered By: Des Garcia on 08-01-2024 MCV (RBC) [Entitic vol] 93.6 fL Normal 80-94 [facility] Comment on above: Performed By: #### L 100.0100 ####[facility] [address] [place], [place], [phone]) Mean corpuscular hemoglobin (MCH) determinationOrdered By: Des Garcia on 08-01-2024 MCH (RBC) [Entitic mass] 27.5 pg Normal 27.0-32.0 [facility] Comment on above: Performed By: #### L 100.0100 ####[facility] [address] [place], [address] Monocyte percentageOrdered B y: Des Garcia on 08-01-2024 Monocytes/100 WBC (Bld) 12.3 % High 0-10 [facility] Comment on above: Performed By: #### L 100.0100 ####[facility] [address] [place], [address] Neutrophil percentageOrdered By: Des Garcia on 08-01-2024 Neutrophils/100 WBC (Bld) 61.7 % Normal 47-70 [facility] Comment on above: Performed By: #### L 100.0100 ####[facility] [address] [place], [address] Platelet countOrdered By: Kana Garcia on 08-01-2024 Platelets (Bld) [#/Vol] 290 10*3/uL Normal 150-450 [facility] Comment on above: Performed By: #### L 100.0100 ####[facility] [address] [place], [address] White blood cell (WBC) count Ordered By: Des Garcia on 08-01-2024 WBC (Bld) [#/Vol] 8.6 10*3/uL Normal 4.4-11.0 [facility] Comment on above: Performed By: #### L 100.0100 ####[facility] [address] [place], [address] Absolute lymphocyte countOrd ered By: Nando Wiggins on 07-30-2024 Lymphocytes Auto (Unsp spec) [#/Vol] 1.74 10*3/uL 0.83-4.51 [facility] Anion gap in Serum or Plasma Ordered By: Nando Wiggins on 07-30-2024 Anion gap [Moles/Vol] 16 mmol/L High 5-15 [facility] Automated lymphocyte count a s percentage of total leukocytesOrdered By: Nando Wiggins on 07-30-2024 Lymphocytes/100 WBC Auto (Unsp spec) 19.2 % 19-41 [facility] BUN/creatinine ratioOrdered By: Nando Wiggins on 07-30-2024 Urea nitrogen/Creatinine [Mass ratio] 8.4 mg/mg Low 10-20 [facility] Basophil percentageOrdered B y: Nando Wiggins on 07-30-2024 Basophils/100 WBC (Bld) 0.6 % 0-1 [facility] Carbon dioxide, total [Moles /volume] in Central venous bloodOrdered By: Nando Wiggins on 07-30-2024 CO2 [Moles/Vol] 26.4 mmol/L 21.0-32.0 [facility] Chloride assayOrdered By: Kathie Wiggins on 07-30-2024 Chloride [Moles/Vol] 91 mmol/L Low 98-108 [facility] Eosinophil percentageOrdered By: Nando Wiggins on 07-30-2024 Eosinophils/100 WBC (Bld) 2.8 % 0-5 [facility] Erythrocyte distribution wid th ratioOrdered By: Nando Wiggins on 07-30-2024 Erythrocyte distribution width (RBC) [Ratio] 17.2 % High 11.6-14.6 [facility] Erythrocyte distribution wid th standard deviationOrdered By: Nando Wiggins on 07-30-2024 Erythrocyte distribution width (RBC) [Ratio] 58.1 fl High 35.1-43.9 [facility] Glomerular filtration rate ( GFR) estimation/1.73 sq m using serum, plasma, or whole bOrdered By: Nando Wiggins on 07-30-2024 GFR/1.73 sq M.predicted among non-blacks MDRD (S/P/Bld) [Vol rate/Area] 13 mL/min/{1.73_m2} Low >60 [facility] Hematocrit Auto (Bld) [Volum e fraction]Ordered By: Nando Wiggins on 07-30-2024 Hematocrit (Bld) [Volume fraction] 26.5 % Low 40-54 [facility] Hemoglobin measurementOrdere d By: Nando Wiggins on 07-30-2024 Hemoglobin (Bld) [Mass/Vol] 8.1 g/dL Low 13.0-16.5 [facility] Immature granulocytes/100 WB C Auto (Bld)Ordered By: Nando Edenlakshmidesiree on 07-30-2024 Immature granulocytes/100 WBC (Bld) 0.800 % 0.0-0.9 [facility] MCV (mean corpuscular volume ) determinationOrdered By: Nando Wiggins on 07-30-2024 MCV (RBC) [Entitic vol] 92.3 fL 80-94 [facility] Mean corpuscular hemoglobin (MCH) determinationOrdered By: Nando Edenlakshmidesiree on 07-30-2024 MCH (RBC) [Entitic mass] 28.2 pg 27.0-32.0 [facility] Monocyte percentageOrdered B y: Nando Edenlakshmidesiree on 07-30-2024 Monocytes/100 WBC (Bld) 9.2 % 0-10 [facility] Neutrophil percentageOrdered By: biancalilian Meeklakshmidesiree on 07-30-2024 Neutrophils/100 WBC (Bld) 67.4 % 47-70 [facility] Platelet countOrdered By: Kathie fili Meeklakshmidesiree on 07-30-2024 Platelets (Bld) [#/Vol] 334 10*3/uL 150-450 [facility] Potassium measurement (mass/ volume)Ordered By: Nando Wiggins on 07-30-2024 Potassium (Unsp spec) [Mass/Vol] 3.6 mmol/L 3.3-5.1 [facility] RBC Auto (Bld) [#/Vol]Ordere d By: Nando Meeklakshmidesiree on 07-30-2024 RBC (Bld) [#/Vol] 2.87 10*6/uL Low 4.6-6.2 [facility] Serum creatinine measurement (mass/volume)Ordered By: Nando Wiggins on 07-30-2024 Creatinine [Mass/Vol] 4.20 mg/dL High 0.70-1.20 [facility] Serum glucose measurement (m ass/volume)Ordered By: Nando Wiggins on 07-30-2024 Glucose [Mass/Vol] 173 mg/dL High 70-99 [facility] Serum or plasma calcium lilli urement (mass/volume)Ordered By: Nando Wiggins on 07-30-2024 Calcium [Mass/Vol] 8.5 mg/dL 7.6-11.0 [facility] Serum or plasma urea nitroge n measurement (mass/volume)Ordered By: Nando Wiggins on 07-30-2024 Urea nitrogen [Mass/Vol] 35 mg/dL High 4-19 [facility] Sodium levelOrdered By: Deb Wiggins on 07-30-2024 Sodium [Moles/Vol] 133 mmol/L 133-145 [facility] White blood cell (WBC) count Ordered By: Nando Wiggins on 07-30-2024 WBC (Bld) [#/Vol] 9.1 10*3/uL 4.4-11.0 [facility] Acid Fast Bacillus Cultureon 07-25-2024 tAFBC [facility] Comment on above: Performed By: #### M 100.3000, M600.2200, M300.2000, M100.4001, M300.3000, M100.2000, M600.1999 ####[facility] [address] [place], [place], [phone] Acid Fast Bacillus Smear/Flu oron 07-25-2024 tafb Normal [facility] Comment on above: Performed By: #### M 100.3000, M600.2200, M300.2000, M100.4001, M300.3000, M100.2000, M600.2000 ####[facility] [address] [place], [place], [id number] Culture, Fungus 8482on 07-25 CUF Normal [facility] Comment on above: Performed By: #### M 100.3000, M600.2200, M300.2000, M100.4001, M300.3000, M100.2000, M600.2000 ####[facility] [address] [place], [address] Fungus Stain 8136on 07-26-19 25 FUNST Normal [facility] Comment on above: Performed By: #### M 100.3000, M600.2200, M300.2000, M100.4001, M300.3000, M100.2000, M600.2000 ####[facility] [address] [place], [address] Absolute lymphocyte countOrd ered By: Nando Wiggins on 07-23-2024 Lymphocytes Auto (Unsp spec) [#/Vol] 2.13 10*3/uL 0.83-4.51 [facility] Automated lymphocyte count a s percentage of total leukocytesOrdered By: Nando Wiggins on 07-23-2024 Lymphocytes/100 WBC Auto (Unsp spec) 17.3 % Low 19-41 [facility] BUN/creatinine ratioOrdered By: Nando Wiggins on 07-23-2024 Urea nitrogen/Creatinine [Mass ratio] 14.6 mg/mg 10- [facility] Basic Metabolic Profile (BMP )on 07-23-2024 BUN Normal -18 [facility] Comment on above: Result Comment: Canc elled via OM: Order cancelled - Patient discharged Performed By: #### L 100.0100, L500.2500 ####[facility] [address] [place], [address] BUN/CRE Normal 10- [facility] Comment on above: Result Comment: Canc elled via OM: Order cancelled - Patient discharged Performed By: #### L 100.0100, L500.2500 ####[facility] [address] [place], [address] Calcium Normal 8.5-10.1 [facility] Comment on above: Result Comment: Canc elled via OM: Order cancelled - Patient discharged Performed By: #### L 100.0100, L500.2500 ####[facility] [address] [place], [address] CL Normal 98-107 [facility] Comment on above: Result Comment: Canc elled via OM: Order cancelled - Patient discharged Performed By: #### L 100.0100, L500.2500 ####[facility] [address] [place], [address] CO2 Normal 21.0-32.0 [facility] Comment on above: Result Comment: Canc elled via OM: Order cancelled - Patient discharged Performed By: #### L 100.0100, L500.2500 ####[facility] [address] [place], [address] CREAT,SERUM Normal 0.70-1.30 [facility] Comment on above: Result Comment: Canc elled via OM: Order cancelled - Patient discharged Performed By: #### L 100.0100, L500.2500 ####[facility] [address] [place], [address] eGFR Normal >60 [facility] Comment on above: Result Comment: Canc elled via OM: Order cancelled - Patient discharged Performed By: #### L 100.0100, L500.2500 ####[facility] [address] [place], [address] EST GFR - AA Normal >60 [facility] Comment on above: Result Comment: Canc elled via OM: Order cancelled - Patient discharged Performed By: #### L 100.0100, L500.2500 ####[facility] [address] [place], [address] GAP Normal 5-15 [facility] Comment on above: Result Comment: Canc elled via OM: Order cancelled - Patient discharged Performed By: #### L 100.0100, L500.2500 ####[facility] [address] [place], [address] GLU Normal 74-106 [facility] Comment on above: Result Comment: Canc elled via OM: Order cancelled - Patient discharged Performed By: #### L 100.0100, L500.2500 ####[facility] [address] [place], [address] Potassium Normal 3.5-5.1 [facility] Comment on above: Result Comment: Canc elled via OM: Order cancelled - Patient discharged Performed By: #### L 100.0100, L500.2500 ####[facility] [address] [place], [address] Basic Metabolic Profile (BMP) Normal 136-145 [facility] Comment on above: Result Comment: Canc elled via OM: Order cancelled - Patient discharged Performed By: #### L 100.0100, L500.2500 ####[facility] [address] [place], [address] Basophil percentageOrdered B y: Efewongwolf Brownee on 07-23-2024 Basophils/100 WBC (Bld) 0.7 % 0-1 [facility] CBC W/Diff, Automatedon 03 Absolute Neut Normal 2.0-7.7 [facility] Comment on above: Result Comment: Canc elled via OM: Order cancelled - Patient discharged Performed By: #### L 100.0100, L500.2500 ####[facility] [address] [place], [address] HCT Normal 40-54 [facility] Comment on above: Result Comment: Canc elled via OM: Order cancelled - Patient discharged Performed By: #### L 100.0100, L500.2500 ####[facility] [address] [place], [address] HGB Normal 13.0-16.5 [facility] Comment on above: Result Comment: Canc elled via OM: Order cancelled - Patient discharged Performed By: #### L 100.0100, L500.2500 ####[facility] [address] [place], [address] MCH Normal 27.0-32.0 [facility] Comment on above: Result Comment: Canc elled via OM: Order cancelled - Patient discharged Performed By: #### L 100.0100, L500.2500 ####[facility] [address] [place], [address] MCHC Normal 32-36 [facility] Comment on above: Result Comment: Canc elled via OM: Order cancelled - Patient discharged Performed By: #### L 100.0100, L500.2500 ####[facility] [address] [place], [address] MCV Normal 80-94 [facility] Comment on above: Result Comment: Canc elled via OM: Order cancelled - Patient discharged Performed By: #### L 100.0100, L500.2500 ####[facility] [address] [place], [address] NEUT% Normal 47-70 [facility] Comment on above: Result Comment: Canc elled via OM: Order cancelled - Patient discharged Performed By: #### L 100.0100, L500.2500 ####[facility] [address] [place], [address] PLT Normal 150-450 [facility] Comment on above: Result Comment: Canc elled via OM: Order cancelled - Patient discharged Performed By: #### L 100.0100, L500.2500 ####[facility] [address] [place], [address] RBC Normal 4.6-6.2 [facility] Comment on above: Result Comment: Canc elled via OM: Order cancelled - Patient discharged Performed By: #### L 100.0100, L500.2500 ####[facility] [address] [place], [address] RDW CV Normal 11.6-14.6 [facility] Comment on above: Result Comment: Canc elled via OM: Order cancelled - Patient discharged Performed By: #### L 100.0100, L500.2500 ####[facility] [address] [place], [address] RDW SD Normal 35.1-43.9 [facility] Comment on above: Result Comment: Canc elled via OM: Order cancelled - Patient discharged Performed By: #### L 100.0100, L500.2500 ####[facility] [address] [place], [address] WBC Normal 4.4-11.0 [facility] Comment on above: Result Comment: Canc elled via OM: Order cancelled - Patient discharged Performed By: #### L 100.0100, L500.2500 ####[facility] [address] [place], [address] Carbon dioxide measurementOr dered By: Nando Wiggins on 07-23-2024 CO2 [Moles/Vol] 27.0 mmol/L 22.0-29.0 [facility] Chloride measurementOrdered By: Nando Wiggins on 07-23-2024 Chloride [Moles/Vol] 95 mmol/L Low 96-108 [facility] Comprehensive Metabolic Prof ilon 07-23-2024 ALB Normal 3.4-4.8 [facility] Comment on above: Result Comment: NOT DRAWN PATIENT DIDN'T COME TO LAB Performed By: #### L 500.4050 ####[facility] [address] [place], [address] ALK PHOS Normal 40-129 [facility] Comment on above: Result Comment: NOT DRAWN PATIENT DIDN'T COME TO LAB Performed By: #### L 500.4050 ####[facility] [address] [place], [address] ALT Normal <=46 [facility] Comment on above: Result Comment: NOT DRAWN PATIENT DIDN'T COME TO LAB Performed By: #### L 500.4050 ####[facility] [address] [place], [address] Anion Gap Normal 5-15 [facility] Comment on above: Result Comment: NOT DRAWN PATIENT DIDN'T COME TO LAB Performed By: #### L 500.4050 ####[facility] [address] [place], [address] AST Normal <=37 [facility] Comment on above: Result Comment: NOT DRAWN PATIENT DIDN'T COME TO LAB Performed By: #### L 500.4050 ####[facility] [address] [place], [address] Chloride Normal 96-108 [facility] Comment on above: Result Comment: NOT DRAWN PATIENT DIDN'T COME TO LAB Performed By: #### L 500.4050 ####[facility] [address] [place], [address] Sodium Normal 133-145 [facility] Comment on above: Result Comment: NOT DRAWN PATIENT DIDN'T COME TO LAB Performed By: #### L 500.4050 ####[facility] [address] [place], [address] T BILI Normal 0.00-1.30 [facility] Comment on above: Result Comment: NOT DRAWN PATIENT DIDN'T COME TO LAB Performed By: #### L 500.4050 ####[facility] [address] [place], [address] T PROT Normal 5.9-8.4 [facility] Comment on above: Result Comment: NOT DRAWN PATIENT DIDN'T COME TO LAB Performed By: #### L 500.4050 ####[facility] [address] [place], [address] Culture, Anaerobic Any Sourc reed 07-23-2024 CUAN Normal [facility] Comment on above: Performed By: #### M 100.2910, M100.4001, M100.1999 ####[facility] [address] [place], [address] Eosinophil percentageOrdered By: Nando Wiggins on 07-23-2024 Eosinophils/100 WBC (Bld) 1.3 % 0-5 [facility] Erythrocyte distribution wid th ratioOrdered By: Nando Wiggins on 07-23-2024 Erythrocyte distribution width (RBC) [Ratio] 17.1 % High 11.6-14.6 [facility] Erythrocyte distribution wid th standard deviationOrdered By: Deboffutt afbwolf Wiggins on 07-23-2024 Erythrocyte distribution width (RBC) [Ratio] 58.3 fl High 35.1-43.9 [facility] Glomerular filtration rate ( GFR) estimation/1.73 sq m using serum, plasma, or whole bOrdered By: Nando Wiggins on 07-23-2024 GFR/1.73 sq M.predicted among non-blacks MDRD (S/P/Bld) [Vol rate/Area] 13 mL/min/{1.73_m2} Low >60 [facility] Hematocrit Auto (Bld) [Volum e fraction]Ordered By: Nando Wiggins on 07-23-2024 Hematocrit (Bld) [Volume fraction] 26.1 % Low 40-54 [facility] Hemoglobin measurementOrdere d By: Nando Wiggins on 07-23-2024 Hemoglobin (Bld) [Mass/Vol] 7.8 g/dL Low 13.0-16.5 [facility] Immature granulocytes/100 WB C Auto (Bld)Ordered By: Nando Wiggins on 07-23-2024 Immature granulocytes/100 WBC (Bld) 2.100 % High 0.0-0.9 [facility] MCV (mean corpuscular volume ) determinationOrdered By: Nando Wiggins on 07-23-2024 MCV (RBC) [Entitic vol] 93.5 fL 80-94 [facility] Mean corpuscular hemoglobin (MCH) determinationOrdered By: Nando Wiggins on 07-23-2024 MCH (RBC) [Entitic mass] 28.0 pg 27.0-32.0 [facility] Monocyte percentageOrdered B y: Nando Wiggins on 07-23-2024 Monocytes/100 WBC (Bld) 7.7 % 0-10 [facility] Neutrophil percentageOrdered By: Nando Wiggins on 07-23-2024 Neutrophils/100 WBC (Bld) 70.9 % High 47-70 [facility] Platelet countOrdered By: Kathie biancalilian Wiggins on 07-23-2024 Platelets (Bld) [#/Vol] 451 10*3/uL High 150-450 [facility] RBC Auto (Bld) [#/Vol]Ordere d By: Nando Wiggins on 07-23-2024 RBC (Bld) [#/Vol] 2.79 10*6/uL Low 4.6-6.2 [facility] Serum creatinine measurement (mass/volume)Ordered By: Nando Wiggins on 07-23-2024 Creatinine [Mass/Vol] 4.11 mg/dL High 0.70-1.20 [facility] Serum glucose measurement (m ass/volume)Ordered By: Nando Wiggins on 07-23-2024 Glucose [Mass/Vol] 147 mg/dL High 70-99 [facility] Serum or plasma anion gap de termination (moles/volume)Ordered By: Nando Wiggins on 07-23-2024 Anion gap [Moles/Vol] 12 mmol/L 5-15 [facility] Serum or plasma calcium lilli urement (mass/volume)Ordered By: Nando Wiggins on 07-23-2024 Calcium [Mass/Vol] 8.4 mg/dL 7.6-11.0 [facility] Serum or plasma potassium me asurementOrdered By: Nando Wiggins on 07-23-2024 Potassium [Moles/Vol] 5.0 mmol/L 3.3-5.1 [facility] Serum or plasma sodium measu rement (moles/volume)Ordered By: Nando Wiggins on 07-23-2024 Sodium [Moles/Vol] 134 mmol/L 133-145 [facility] Serum or plasma urea nitroge n measurement (mass/volume)Ordered By: Debsrinathwolf Wiggins on 07-23-2024 Urea nitrogen [Mass/Vol] 60 mg/dL High 4-19 [facility] White blood cell (WBC) count Ordered By: Kathiebiancalilian Meeklakshmidesiree on 07-23-2024 WBC (Bld) [#/Vol] 12.3 10*3/uL High 4.4-11.0 [facility] Wound Ctr History AND Physic ariella 07-23-2024 Wound Ctr History & Physical Normal [facility] Basic Metabolic Profile (BMP )on 07-22-2024 CL Normal 98-107 [facility] Comment on above: Result Comment: Canc elled via OM: Order cancelled - Patient discharged Performed By: #### L 500.2500, L100.0100 ####[facility] [address] [place], [address] EST GFR - AA Normal >60 [facility] Comment on above: Result Comment: Canc elled via OM: Order cancelled - Patient discharged Performed By: #### L 500.2500, L100.0100 ####[facility] [address] [place], [address] GAP Normal 5-15 [facility] Comment on above: Result Comment: Canc elled via OM: Order cancelled - Patient discharged Performed By: #### L 500.2500, L100.0100 ####[facility] [address] [place], [address] Basic Metabolic Profile (BMP) Normal 136-145 [facility] Comment on above: Result Comment: Canc elled via OM: Order cancelled - Patient discharged Performed By: #### L 500.2500, L100.0100 ####[facility] [address] [place], [address] CBC W/Diff, Automatedon 03-0 2-2025 Absolute Neut Normal 2.0-7.7 [facility] Comment on above: Result Comment: Canc elled via OM: Order cancelled - Patient discharged Performed By: #### L 500.2500, L100.0100 ####[facility] [address] [place], [address] HCT Normal 40-54 [facility] Comment on above: Result Comment: Canc elled via OM: Order cancelled - Patient discharged Performed By: #### L 500.2500, L100.0100 ####[facility] [address] [place], [address] HGB Normal 13.0-16.5 [facility] Comment on above: Result Comment: Canc elled via OM: Order cancelled - Patient discharged Performed By: #### L 500.2500, L100.0100 ####[facility] [address] [place], [address] MCH Normal 27.0-32.0 [facility] Comment on above: Result Comment: Canc elled via OM: Order cancelled - Patient discharged Performed By: #### L 500.2500, L100.0100 ####[facility] [address] [place], [address] MCHC Normal 32-36 [facility] Comment on above: Result Comment: Canc elled via OM: Order cancelled - Patient discharged Performed By: #### L 500.2500, L100.0100 ####[facility] [address] [place], [address] MCV Normal 80-94 [facility] Comment on above: Result Comment: Canc elled via OM: Order cancelled - Patient discharged Performed By: #### L 500.2500, L100.0100 ####[facility] [address] [place], [address] NEUT% Normal 47-70 [facility] Comment on above: Result Comment: Canc elled via OM: Order cancelled - Patient discharged Performed By: #### L 500.2500, L100.0100 ####[facility] [address] [place], [address] PLT Normal 150-450 [facility] Comment on above: Result Comment: Canc elled via OM: Order cancelled - Patient discharged Performed By: #### L 500.2500, L100.0100 ####[facility] [address] [place], [address] RBC Normal 4.6-6.2 [facility] Comment on above: Result Comment: Canc elled via OM: Order cancelled - Patient discharged Performed By: #### L 500.2500, L100.0100 ####[facility] [address] [place], [address] RDW CV Normal 11.6-14.6 [facility] Comment on above: Result Comment: Canc elled via OM: Order cancelled - Patient discharged Performed By: #### L 500.2500, L100.0100 ####[facility] [address] [place], [address] RDW SD Normal 35.1-43.9 [facility] Comment on above: Result Comment: Canc elled via OM: Order cancelled - Patient discharged Performed By: #### L 500.2500, L100.0100 ####[facility] [address] [place], [address] WBC Normal 4.4-11.0 [facility] Comment on above: Result Comment: Canc elled via OM: Order cancelled - Patient discharged Performed By: #### L 500.2500, L100.0100 ####[facility] [address] [place], [address] Comprehensive Metabolic Prof ilon 07-22-2024 BUN Normal 7-18 [facility] Comment on above: Result Comment: NOT DRAWN PATIENT DIDN'T COME TO LAB Performed By: #### L 500.4050 ####[facility] [address] [place], [address] Result Comment: Canc elled via OM: Order cancelled - Patient discharged Performed By: #### L 500.2500, L100.0100 ####[facility] [address] [place], [address] BUN/CRE Normal 10-20 [facility] Comment on above: Result Comment: NOT DRAWN PATIENT DIDN'T COME TO LAB Performed By: #### L 500.4050 ####[facility] [address] [place], [address] Result Comment: Canc elled via OM: Order cancelled - Patient discharged Performed By: #### L 500.2500, L100.0100 ####[facility] [address] [place], [address] Calcium Normal 8.5-10.1 [facility] Comment on above: Result Comment: NOT DRAWN PATIENT DIDN'T COME TO LAB Performed By: #### L 500.4050 ####[facility] [address] [place], [address] Result Comment: Canc elled via OM: Order cancelled - Patient discharged Performed By: #### L 500.2500, L100.0100 ####[facility] [address] [place], [address] CO2 Normal 21.0-32.0 [facility] Comment on above: Result Comment: NOT DRAWN PATIENT DIDN'T COME TO LAB Performed By: #### L 500.4050 ####[facility] [address] [place], [address] Result Comment: Canc elled via OM: Order cancelled - Patient discharged Performed By: #### L 500.2500, L100.0100 ####[facility] [address] [place], [address] CREAT,SERUM Normal 0.70-1.30 [facility] Comment on above: Result Comment: NOT DRAWN PATIENT DIDN'T COME TO LAB Performed By: #### L 500.4050 ####[facility] [address] [place], [address] Result Comment: Canc elled via OM: Order cancelled - Patient discharged Performed By: #### L 500.2500, L100.0100 ####[facility] [address] [place], [address] eGFR Normal >60 [facility] Comment on above: Result Comment: NOT DRAWN PATIENT DIDN'T COME TO LAB Performed By: #### L 500.4050 ####[facility] [address] [place], [address] Result Comment: Canc elled via OM: Order cancelled - Patient discharged Performed By: #### L 500.2500, L100.0100 ####[facility] [address] [place], [address] GLU Normal 74-106 [facility] Comment on above: Result Comment: NOT DRAWN PATIENT DIDN'T COME TO LAB Performed By: #### L 500.4050 ####[facility] [address] [place], [address] Result Comment: Canc elled via OM: Order cancelled - Patient discharged Performed By: #### L 500.2500, L100.0100 ####[facility] [address] [place], [address] Potassium Normal 3.5-5.1 [facility] Comment on above: Result Comment: NOT DRAWN PATIENT DIDN'T COME TO LAB Performed By: #### L 500.4050 ####[facility] [address] [place], [address] Result Comment: Canc elled via OM: Order cancelled - Patient discharged Performed By: #### L 500.2500, L100.0100 ####[facility] [address] [place], [address] Culture, Blood (WB)on 2024 CUB No growth in 5 days. Normal [facility] Comment on above: Performed By: #### M 200.1000 ####[facility] [address] [place], [address] Basic Metabolic Profile (BMP )on 07-21-2024 BUN Normal 7-18 [facility] Comment on above: Result Comment: Canc elled via OM: Order cancelled - Patient discharged Performed By: #### L 100.0100, L500.2500 ####[facility] [address] [place], [address] BUN/CRE Normal 10-20 [facility] Comment on above: Result Comment: Canc elled via OM: Order cancelled - Patient discharged Performed By: #### L 100.0100, L500.2500 ####[facility] [address] [place], [address] Calcium Normal 8.5-10.1 [facility] Comment on above: Result Comment: Canc elled via OM: Order cancelled - Patient discharged Performed By: #### L 100.0100, L500.2500 ####[facility] [address] [place], [address] CL Normal 98-107 [facility] Comment on above: Result Comment: Canc elled via OM: Order cancelled - Patient discharged Performed By: #### L 100.0100, L500.2500 ####[facility] [address] [place], [address] CO2 Normal 21.0-32.0 [facility] Comment on above: Result Comment: Canc elled via OM: Order cancelled - Patient discharged Performed By: #### L 100.0100, L500.2500 ####[facility] [address] [place], [address] CREAT,SERUM Normal 0.70-1.30 [facility] Comment on above: Result Comment: Canc elled via OM: Order cancelled - Patient discharged Performed By: #### L 100.0100, L500.2500 ####[facility] [address] [place], [address] eGFR Normal >60 [facility] Comment on above: Result Comment: Canc elled via OM: Order cancelled - Patient discharged Performed By: #### L 100.0100, L500.2500 ####[facility] [address] [place], [address] EST GFR - AA Normal >60 [facility] Comment on above: Result Comment: Canc elled via OM: Order cancelled - Patient discharged Performed By: #### L 100.0100, L500.2500 ####[facility] [address] [place], [address] GAP Normal 5-15 [facility] Comment on above: Result Comment: Canc elled via OM: Order cancelled - Patient discharged Performed By: #### L 100.0100, L500.2500 ####[facility] [address] [place], [address] GLU Normal 74-106 [facility] Comment on above: Result Comment: Canc elled via OM: Order cancelled - Patient discharged Performed By: #### L 100.0100, L500.2500 ####[facility] [address] [place], [address] Potassium Normal 3.5-5.1 [facility] Comment on above: Result Comment: Canc elled via OM: Order cancelled - Patient discharged Performed By: #### L 100.0100, L500.2500 ####[facility] [address] [place], [address] Basic Metabolic Profile (BMP) Normal 136-145 [facility] Comment on above: Result Comment: Canc elled via OM: Order cancelled - Patient discharged Performed By: #### L 100.0100, L500.2500 ####[facility] [address] [place], [address] CBC W/Diff, Automatedon 03-0 Absolute Neut Normal 2.0-7.7 [facility] Comment on above: Result Comment: Canc elled via OM: Order cancelled - Patient discharged Performed By: #### L 100.0100, L500.2500 ####[facility] [address] [place], [address] HCT Normal 40-54 [facility] Comment on above: Result Comment: Canc elled via OM: Order cancelled - Patient discharged Performed By: #### L 100.0100, L500.2500 ####[facility] [address] [place], [address] HGB Normal 13.0-16.5 [facility] Comment on above: Result Comment: Canc elled via OM: Order cancelled - Patient discharged Performed By: #### L 100.0100, L500.2500 ####[facility] [address] [place], [address] MCH Normal 27.0-32.0 [facility] Comment on above: Result Comment: Canc elled via OM: Order cancelled - Patient discharged Performed By: #### L 100.0100, L500.2500 ####[facility] [address] [place], [address] MCHC Normal 32-36 [facility] Comment on above: Result Comment: Canc elled via OM: Order cancelled - Patient discharged Performed By: #### L 100.0100, L500.2500 ####[facility] [address] [place], [address] MCV Normal 80-94 [facility] Comment on above: Result Comment: Canc elled via OM: Order cancelled - Patient discharged Performed By: #### L 100.0100, L500.2500 ####[facility] [address] [place], [address] NEUT% Normal 47-70 [facility] Comment on above: Result Comment: Canc elled via OM: Order cancelled - Patient discharged Performed By: #### L 100.0100, L500.2500 ####[facility] [address] [place], [address] PLT Normal 150-450 [facility] Comment on above: Result Comment: Canc elled via OM: Order cancelled - Patient discharged Performed By: #### L 100.0100, L500.2500 ####[facility] [address] [place], [address] RBC Normal 4.6-6.2 [facility] Comment on above: Result Comment: Canc elled via OM: Order cancelled - Patient discharged Performed By: #### L 100.0100, L500.2500 ####[facility] [address] [place], [address] RDW CV Normal 11.6-14.6 [facility] Comment on above: Result Comment: Canc elled via OM: Order cancelled - Patient discharged Performed By: #### L 100.0100, L500.2500 ####[facility] [address] [place], [address] RDW SD Normal 35.1-43.9 [facility] Comment on above: Result Comment: Canc elled via OM: Order cancelled - Patient discharged Performed By: #### L 100.0100, L500.2500 ####[facility] [address] [place], [address] WBC Normal 4.4-11.0 [facility] Comment on above: Result Comment: Canc elled via OM: Order cancelled - Patient discharged Performed By: #### L 100.0100, L500.2500 ####[facility] [address] [place], [address] Culture, Anaerobic Any Sourc reed 07-21-2024 CUAN UNK UNK Post-lavage Right lower extremity No anaerobic bacteria isolated. Normal [facility] Comment on above: Performed By: #### M 100.2000, M100.3000, M100.4001 ####[facility] [address] [place], [address] CUAN UNK UNK Pre-lavage right lower extremity - collected in [place] No anaerobic bacteria isolated. Normal [facility] Comment on above: Performed By: #### M 100.4001, M100.3000, M100.2000 ####[facility] [address] [place], [address] Culture, Blood (WB)on 2024 CUB No growth in 5 days. Normal [facility] Comment on above: Performed By: #### M 200.1000 ####[facility] [address] [place], [address] Absolute lymphocyte countOrd ered By: Jayla Osuna on 07-20-2024 Lymphocytes Auto (Unsp spec) [#/Vol] 1.89 10*3/uL 0.83-4.51 [facility] Automated lymphocyte count a s percentage of total leukocytesOrdered By: Jayla Osuna on 07-20-2024 Lymphocytes/100 WBC Auto (Unsp spec) 14.9 % Low 19-41 [facility] BUN/creatinine ratioOrdered By: Margarette Godinez on 07-20-2024 Urea nitrogen/Creatinine [Mass ratio] 16.1 mg/mg 10-20 [facility] Basic Metabolic Profile (BMP )on 07-20-2024 Anion gap [Moles/Vol] 12 mmol/L Normal 5-15 [facility] Comment on above: Performed By: #### L 500.2500 ####[facility] [address] [place], [address] BUN/CRE 16.1 RATIO Normal 10-20 [facility] Comment on above: Performed By: #### L 500.2500 ####[facility] [address], [address] Calcium [Mass/Vol] 8.7 mg/dL Normal 7.6-11.0 [facility] Comment on above: Performed By: #### L 500.2500 ####[facility] [address] [place], [address] Chloride [Moles/Vol] 97 mmol/L Normal 96-108 [facility] Comment on above: Performed By: #### L 500.2500 ####[facility] [address] [place], [address] CO2 [Moles/Vol] 22.0 mmol/L Normal 22.0-29.0 [facility] Comment on above: Performed By: #### L 500.2500 ####[facility] [address] [place], [address] Creatinine [Mass/Vol] 4.24 mg/dL High 0.70-1.20 [facility] Comment on above: Performed By: #### L 500.2500 ####[facility] [address] [place], [address] ECRCL 13.28 ml/min Normal [facility] Comment on above: Performed By: #### L 500.2500 ####[facility] [address] [place], [address] GFR/1.73 sq M.predicted among non-blacks MDRD (S/P/Bld) [Vol rate/Area] 13 mL/min/{1.73_m2} Low >60 [facility] Comment on above: Result Comment: mL/m in/1.73m2 CKD-EPI Creatinine Equation (2020) Performed By: #### L 500.2500 ####[facility] [address] [place], [address] Glucose [Mass/Vol] 153 mg/dL High 70-99 [facility] Comment on above: Performed By: #### L 500.2500 ####[facility] [address] [place], [address] Potassium [Moles/Vol] 5.5 mmol/L High 3.3-5.1 [facility] Comment on above: Performed By: #### L 500.2500 ####[facility] [address] [place], [address] Sodium [Moles/Vol] 131 mmol/L Low 133-145 [facility] Comment on above: Performed By: #### L 500.2500 ####[facility] [address] [place], [address] Urea nitrogen [Mass/Vol] 68 mg/dL High 4-19 [facility] Comment on above: Performed By: #### L 500.2500 ####[facility] [address] [place], [address] BUN/CRE 16.1 RATIO Normal 10-20 [facility] Comment on above: Result Comment: WILL REORDER Performed By: #### L 500.2500, L100.0100 ####[facility] [address] [place], [address] Creatinine [Mass/Vol] 4.15 mg/dL High 0.70-1.20 [facility] Comment on above: Result Comment: WILL REORDER Performed By: #### L 500.2500, L100.0100 ####[facility] [address] [place], [address] ECRCL 13.57 ml/min Normal [facility] Comment on above: Result Comment: WILL REORDER Performed By: #### L 500.2500, L100.0100 ####[facility] [address] [place], [address] GFR/1.73 sq M.predicted among non-blacks MDRD (S/P/Bld) [Vol rate/Area] 13 mL/min/{1.73_m2} Low >60 [facility] Comment on above: Result Comment: WILL REORDERmL/min/1.73m2 CKD-EPI Creatinine Equation (2020) Performed By: #### L 500.2500, L100.0100 ####[facility] [address] [place], [address] Glucose [Mass/Vol] 155 mg/dL High 70-99 [facility] Comment on above: Result Comment: WILL REORDER Performed By: #### L 500.2500, L100.0100 ####[facility] [address] [place], [address] Urea nitrogen [Mass/Vol] 67 mg/dL High 4-19 [facility] Comment on above: Result Comment: WILL REORDER Performed By: #### L 500.2500, L100.0100 ####[facility] [address] [place], [address] Calcium Normal 8.5-10.1 [facility] Comment on above: Result Comment: WILL REORDER Performed By: #### L 500.2500, L100.0100 ####[facility] [address] [place], [address] CL Normal 98-107 [facility] Comment on above: Result Comment: WILL REORDER Performed By: #### L 500.2500, L100.0100 ####[facility] [address] [place], [address] CO2 Normal 21.0-32.0 [facility] Comment on above: Result Comment: WILL REORDER Performed By: #### L 500.2500, L100.0100 ####[facility] [address] [place], [address] EST GFR - AA Normal >60 [facility] Comment on above: Result Comment: WILL REORDER Performed By: #### L 500.2500, L100.0100 ####[facility] [address] [place], [address] GAP Normal 5-15 [facility] Comment on above: Result Comment: WILL REORDER Performed By: #### L 500.2500, L100.0100 ####[facility] [address] [place], [address] Potassium Normal 3.5-5.1 [facility] Comment on above: Result Comment: WILL REORDER Performed By: #### L 500.2500, L100.0100 ####[facility] [address] [place], [address] Basic Metabolic Profile (BMP) Normal 136-145 [facility] Comment on above: Result Comment: WILL REORDER Performed By: #### L 500.2500, L100.0100 ####[facility] [address] [place], [address] Basophil percentageOrdered B y: Jayla Osuna on 07-20-2024 Basophils/100 WBC (Bld) 0.4 % 0-1 [facility] Bedside Glucoseon 07-20-2024 FINGERSTICK GLU 91 mg/dL Normal 74-106 [facility] Comment on above: Result Comment: FANG GEMENT OF PATIENT CARE PER NURSING PROTOCOL Performed By: #### L 501.080 ####[facility] [address] [place], [address] FINGERSTICK GLU 98 mg/dL Normal 74-106 [facility] Comment on above: Result Comment: FANG GEMENT OF PATIENT CARE PER NURSING PROTOCOL Performed By: #### L 501.080 ####[facility] [address] [place], [address] FINGERSTICK GLU 159 mg/dL High 74-106 [facility] Comment on above: Result Comment: FANG GEMENT OF PATIENT CARE PER NURSING PROTOCOL Performed By: #### L 501.080 ####[facility] [address] [place], [address] FINGERSTICK GLU 156 mg/dL High 74-106 [facility] Comment on above: Result Comment: FANG GEMENT OF PATIENT CARE PER NURSING PROTOCOL Performed By: #### L 501.080 ####[facility] [address] [place], [address] CBC W/Diff, Automatedon 06-24 Absolute Lymph 1.89 X10 3/uL Normal 0.83-4.51 [facility] Comment on above: Performed By: #### L 500.2500, L100.0100 ####[facility] [address] [place], [address] Absolute Neut 9.3 X10 3/uL High 2.0-7.7 [facility] Comment on above: Performed By: #### L 500.2500, L100.0100 ####[facility] [address] [place], [address] Basophils/100 WBC (Bld) 0.4 % Normal 0-1 [facility] Comment on above: Performed By: #### L 500.2500, L100.0100 ####[facility] [address] [place], [address] Eosinophils/100 WBC (Bld) 1.7 % Normal 0-5 [facility] Comment on above: Performed By: #### L 500.2500, L100.0100 ####[facility] [address] [place], [address] Erythrocyte distribution width (RBC) [Ratio] 17.6 % High 11.6-14.6 [facility] Comment on above: Performed By: #### L 500.2500, L100.0100 ####[facility] [address] [place], [address] Hematocrit (Bld) [Volume fraction] 25.2 % Low 40-54 [facility] Comment on above: Performed By: #### L 500.2500, L100.0100 ####[facility] [address] [place], [address] Hemoglobin (Bld) [Mass/Vol] 7.6 g/dL Low 13.0-16.5 [facility] Comment on above: Performed By: #### L 500.2500, L100.0100 ####[facility] [address] [place], [address] IG% 2.300 High 0.0-0.9 [facility] Comment on above: Result Comment: IG% - Immature Granulocytes (promyelocytes, myelocytes andmetamyelocytes) > 1% indicates that a LEFT SHIFT is Present. Performed By: #### L 500.2500, L100.0100 ####[facility] [address] [place], [address] Lymphocytes/100 WBC (Bld) 14.9 % Low 19-41 [facility] Comment on above: Performed By: #### L 500.2500, L100.0100 ####[facility] [address] [place], [address] MCH (RBC) [Entitic mass] 28.1 pg Normal 27.0-32.0 [facility] Comment on above: Performed By: #### L 500.2500, L100.0100 ####[facility] [address] [place], [address] MCHC (RBC) [Mass/Vol] 30.2 g/dL Low 32-36 [facility] Comment on above: Performed By: #### L 500.2500, L100.0100 ####[facility] [address] [place], [address] MCV (RBC) [Entitic vol] 93.3 fL Normal 80-94 [facility] Comment on above: Performed By: #### L 500.2500, L100.0100 ####[facility] [address] [place], [address] Monocytes/100 WBC (Bld) 7.6 % Normal 0-10 [facility] Comment on above: Performed By: #### L 500.2500, L100.0100 ####[facility] [address] [place], [address] Neutrophils/100 WBC (Bld) 73.1 % High 47-70 [facility] Comment on above: Performed By: #### L 500.2500, L100.0100 ####[facility] [address] [place], [address] Nucleated RBC (Bld) [#/Vol] 0 10*3/uL Normal 0-5 [facility] Comment on above: Performed By: #### L 500.2500, L100.0100 ####[facility] [address] [place], [address] Platelet mean volume (Bld) [Entitic vol] 10.4 fL Normal 6.2-12.0 [facility] Comment on above: Performed By: #### L 500.2500, L100.0100 ####[facility] [address] [place], [address] Platelets (Bld) [#/Vol] 438 10*3/uL Normal 150-450 [facility] Comment on above: Performed By: #### L 500.2500, L100.0100 ####[facility] [address] [place], [address] RBC (Bld) [#/Vol] 2.70 10*6/uL Low 4.6-6.2 [facility] Comment on above: Performed By: #### L 500.2500, L100.0100 ####[facility] [address] [place], [address] RDW SD 60.7 fl High 35.1-43.9 [facility] Comment on above: Performed By: #### L 500.2500, L100.0100 ####[facility] [address] [place], [address] WBC (Bld) [#/Vol] 12.7 10*3/uL High 4.4-11.0 [facility] Comment on above: Performed By: #### L 500.2500, L100.0100 ####[facility] [address] [place], [address] Carbon dioxide measurementOr dered By: Margarette Godinez on 07-20-2024 CO2 [Moles/Vol] 22.0 mmol/L 22.0-29.0 [facility] Chloride measurementOrdered By: Margarette Godinez on 07-20-2024 Chloride [Moles/Vol] 97 mmol/L 96-108 [facility] Eosinophil percentageOrdered By: Jayla Osuna on 07-20-2024 Eosinophils/100 WBC (Bld) 1.7 % 0-5 [facility] Erythrocyte distribution wid th ratioOrdered By: Jayla Osuna on 07-20-2024 Erythrocyte distribution width (RBC) [Ratio] 17.6 % High 11.6-14.6 [facility] Erythrocyte distribution wid th standard deviationOrdered By: Jayla Osuna on 07-20-2024 Erythrocyte distribution width (RBC) [Ratio] 60.7 fl High 35.1-43.9 [facility] Glomerular filtration rate ( GFR) estimation/1.73 sq m using serum, plasma, or whole bOrdered By: Margarette Godinez on 07-20-2024 GFR/1.73 sq M.predicted among non-blacks MDRD (S/P/Bld) [Vol rate/Area] 13 mL/min/{1.73_m2} Low >60 [facility] de[facility]dered By: Margarette Godinez on 07-20-2024 Glucose [Mass/Vol] 91 mg/dL 74-106 [facility] Hematocrit Auto (Bld) [Volum e fraction]Ordered By: Jayla Osuna on 07-20-2024 Hematocrit (Bld) [Volume fraction] 25.2 % Low 40-54 [facility] Hemoglobin measurementOrdere d By: Jayla Osuna on 07-20-2024 Hemoglobin (Bld) [Mass/Vol] 7.6 g/dL Low 13.0-16.5 [facility] Immature granulocytes/100 WB C Auto (Bld)Ordered By: Jayla Osuna on 07-20-2024 Immature granulocytes/100 WBC (Bld) 2.300 % High 0.0-0.9 [facility] MCV (mean corpuscular volume ) determinationOrdered By: Jayla Osuna on 07-20-2024 MCV (RBC) [Entitic vol] 93.3 fL 80-94 [facility] Mean corpuscular hemoglobin (MCH) determinationOrdered By: Jayla Osuna on 07-20-2024 MCH (RBC) [Entitic mass] 28.1 pg 27.0-32.0 [facility] Monocyte percentageOrdered B y: Jayla Osuna on 07-20-2024 Monocytes/100 WBC (Bld) 7.6 % 0-10 [facility] Neutrophil percentageOrdered By: Jayla Osuna on 07-20-2024 Neutrophils/100 WBC (Bld) 73.1 % High 47-70 [facility] Platelet countOrdered By: Kristofer Osuna on 07-20-2024 Platelets (Bld) [#/Vol] 438 10*3/uL 150-450 [facility] RBC Auto (Bld) [#/Vol]Ordere d By: Jayla Osuna on 07-20-2024 RBC (Bld) [#/Vol] 2.70 10*6/uL Low 4.6-6.2 [facility] Serum creatinine measurement (mass/volume)Ordered By: Margarette Godinez on 07-20-2024 Creatinine [Mass/Vol] 4.24 mg/dL High 0.70-1.20 [facility] Serum glucose measurement (m ass/volume)Ordered By: Margarette Godinez on 07-20-2024 Glucose [Mass/Vol] 153 mg/dL High 70-99 [facility] Serum or plasma anion gap de termination (moles/volume)Ordered By: Margarette Godinez on 07-20-2024 Anion gap [Moles/Vol] 12 mmol/L - [facility] Serum or plasma calcium lilli urement (mass/volume)Ordered By: Margarette Godinez on 07-20-2024 Calcium [Mass/Vol] 8.7 mg/dL 7.6-11.0 [facility] Serum or plasma potassium me asurementOrdered By: Margarette Godinez on 07-20-2024 Potassium [Moles/Vol] 5.5 mmol/L High 3.3-5.1 [facility] Serum or plasma sodium measu rement (moles/volume)Ordered By: Margarette Godinez on 07-20-2024 Sodium [Moles/Vol] 131 mmol/L Low 133-145 [facility] Serum or plasma urea nitroge n measurement (mass/volume)Ordered By: Margarette Godinez on 07-20-2024 Urea nitrogen [Mass/Vol] 68 mg/dL High 4-19 [facility] White blood cell (WBC) count Ordered By: Jayla Osuna on 07-20-2024 WBC (Bld) [#/Vol] 12.7 10*3/uL High 4.4-11.0 [facility] Basic Metabolic Profile (BMP )on 07-19-2024 Anion gap [Moles/Vol] 17 mmol/L High 10-04 [facility] Comment on above: Performed By: #### L 500.2500 ####[facility] [address] [place], [address] BUN/CRE 14.3 RATIO Normal 10-20 [facility] Comment on above: Performed By: #### L 500.2500 ####[facility] [address] [place], [address] Calcium [Mass/Vol] 8.7 mg/dL Normal 7.6-11.0 [facility] Comment on above: Performed By: #### L 500.2500 ####[facility] [address] [place], [address] Chloride [Moles/Vol] 95 mmol/L Low 96-108 [facility] Comment on above: Performed By: #### L 500.2500 ####[facility] [address] [place], [address] CO2 [Moles/Vol] 19.8 mmol/L Low 22.0-29.0 [facility] Comment on above: Performed By: #### L 500.2500 ####[facility] [address] [place], [address] Creatinine [Mass/Vol] 5.60 mg/dL High 0.70-1.20 [facility] Comment on above: Performed By: #### L 500.2500 ####[facility] [address] [place], [address] ECRCL 10.06 ml/min Normal [facility] Comment on above: Performed By: #### L 500.2500 ####[facility] [address] [place], [address] GFR/1.73 sq M.predicted among non-blacks MDRD (S/P/Bld) [Vol rate/Area] 9 mL/min/{1.73_m2} Low >60 [facility] Comment on above: Result Comment: mL/m in/1.73m2 CKD-EPI Creatinine Equation (2020) Performed By: #### L 500.2500 ####[facility] [address] [place], [address] Glucose [Mass/Vol] 153 mg/dL High 70-99 [facility] Comment on above: Performed By: #### L 500.2500 ####[facility] [address] [place], [address] Potassium [Moles/Vol] 5.9 mmol/L High 3.3-5.1 [facility] Comment on above: Performed By: #### L 500.2500 ####[facility] [address] [place], [address] Sodium [Moles/Vol] 131 mmol/L Low 133-145 [facility] Comment on above: Performed By: #### L 500.2500 ####[facility] [address] [place], [address] Urea nitrogen [Mass/Vol] 80 mg/dL High 4-19 [facility] Comment on above: Performed By: #### L 500.2500 ####[facility] [address] [place], [address] Anion gap [Moles/Vol] 13 mmol/L Normal 5-15 [facility] Comment on above: Performed By: #### L 500.2500 ####[facility] [address] [place], [address] ECRCL 12.41 ml/min Normal [facility] Comment on above: Performed By: #### L 500.2500 ####[facility] [address] [place], [address] GFR/1.73 sq M.predicted among non-blacks MDRD (S/P/Bld) [Vol rate/Area] 12 mL/min/{1.73_m2} Low >60 [facility] Comment on above: Performed By: #### L 500.2500 ####[facility] [address] [place], [address] BUN/CRE 13.7 RATIO Normal 10-20 [facility] Comment on above: Performed By: #### L 500.2500 ####[facility] [address] [place], [address] Calcium [Mass/Vol] 8.9 mg/dL Normal 7.6-11.0 [facility] Comment on above: Performed By: #### L 500.2500 ####[facility] [address] [place], [address] Creatinine [Mass/Vol] 4.6 mg/dL High 0.8-1.3 [facility] Comment on above: Performed By: #### L 500.2500 ####[facility] [address] [place], [address] Glucose [Mass/Vol] 130 mg/dL High 70-99 [facility] Comment on above: Performed By: #### L 500.2500 ####[facility] [address] [place], [address] Urea nitrogen [Mass/Vol] 63 mg/dL High 4-19 [facility] Comment on above: Performed By: #### L 500.2500 ####[facility] [address] [place], [address] Chloride [Moles/Vol] 97 mmol/L Normal 96-108 [facility] Comment on above: Performed By: #### L 500.2500 ####[facility] [address] [place], [address] CO2 [Moles/Vol] 22.7 mmol/L Normal 22.0-29.0 [facility] Comment on above: Performed By: #### L 500.2500 ####[facility] [address] [place], [address] Potassium [Moles/Vol] 5.0 mmol/L Normal 3.3-5.1 [facility] Comment on above: Performed By: #### L 500.2500 ####[facility] [address] [place], [address] Sodium [Moles/Vol] 133 mmol/L Normal 133-145 [facility] Comment on above: Performed By: #### L 500.2500 ####[facility] [address] [place], [address] Glucose [Mass/Vol] 165 mg/dL High 70-99 [facility] Comment on above: Order Comment: REORD ERED Result Comment: MARIS RAYA AMENDED REPORT 07/19/24 1223 GLU previously reported as: 173 H mg/dL Performed By: #### L 100.0100, L500.2500 ####[facility] [address] [place], [address] Urea nitrogen [Mass/Vol] 84 mg/dL High 4-19 [facility] Comment on above: Order Comment: REORD ERED Result Comment: MARIS RAYA AMENDED REPORT 07/19/24 1223 BUN previously reported as: 83 H mg/dL Performed By: #### L 100.0100, L500.2500 ####[facility] [address] [place], [address] BUN/CRE 13.7 RATIO Normal 10-20 [facility] Comment on above: Order Comment: WILL REORDER Result Comment: WILL REORDER AMENDED REPORT 07/19/24 1106 BUN/CRE previously reported as: 13.5 RATIO Performed By: #### L 100.0100, L500.2500 ####[facility] [address] [place], [address] Creatinine [Mass/Vol] 4.6 mg/dL High 0.8-1.3 [facility] Comment on above: Order Comment: WILL REORDER Result Comment: WILL REORDER AMENDED REPORT 07/19/24 1106 CREAT,SERUM previously reported as: 4.5 H mg/dL Performed By: #### L 100.0100, L500.2500 ####[facility] [address] [place], [address] ECRCL 12.41 ml/min Normal [facility] Comment on above: Order Comment: WILL REORDER Result Comment: WILL REORDER AMENDED REPORT 07/19/24 1106 Estimated CRCL previously reported as: 12.65 ml/min Performed By: #### L 100.0100, L500.2500 ####[facility] [address] [place], [address] Glucose [Mass/Vol] 130 mg/dL High 70-99 [facility] Comment on above: Order Comment: WILL REORDER Result Comment: WILL REORDER AMENDED REPORT 07/19/24 1106 GLU previously reported as: 157 H mg/dL Performed By: #### L 100.0100, L500.2500 ####[facility] [address] [place], [address] Urea nitrogen [Mass/Vol] 63 mg/dL High 4-19 [facility] Comment on above: Order Comment: WILL REORDER Result Comment: WILL REORDER AMENDED REPORT 07/19/24 1106 BUN previously reported as: 60 H mg/dL Performed By: #### L 100.0100, L500.2500 ####[facility] [address] [place], [address] BUN/CRE 15.2 RATIO Normal 10-20 [facility] Comment on above: Order Comment: REORD ERED Result Comment: MARIS RAYA Performed By: #### L 100.0100, L500.2500 ####[facility] [address] [place], [address] Creatinine [Mass/Vol] 5.5 mg/dL High 0.8-1.3 [facility] Comment on above: Order Comment: REORD ERED Result Comment: MARIS RAYA Performed By: #### L 100.0100, L500.2500 ####[facility] [address] [place], [address] ECRCL 10.38 ml/min Normal [facility] Comment on above: Order Comment: REORD ERED Result Comment: MARIS RAYA Performed By: #### L 100.0100, L500.2500 ####[facility] [address] [place], [address] GFR/1.73 sq M.predicted among non-blacks MDRD (S/P/Bld) [Vol rate/Area] 9 mL/min/{1.73_m2} Low >60 [facility] Comment on above: Order Comment: REALVERTO ERED Result Comment: MARIS ZHAODmL/min/1.73m2 CKD-EPI Creatinine Equation (2020) Performed By: #### L 100.0100, L500.2500 ####[facility] [address] [place], [address] Calcium Normal 8.5-10.1 [facility] Comment on above: Order Comment: REORD ERED Result Comment: REOR DERED Performed By: #### L 100.0100, L500.2500 ####[facility] [address] [place], [address] CL Normal 98-107 [facility] Comment on above: Order Comment: REORD ERED Result Comment: REOR DERED Performed By: #### L 100.0100, L500.2500 ####[facility] [address] [place], [address] CO2 Normal 21.0-32.0 [facility] Comment on above: Order Comment: REORD ERED Result Comment: REOR DERED Performed By: #### L 100.0100, L500.2500 ####[facility] [address] [place], [address] EST GFR - AA Normal >60 [facility] Comment on above: Order Comment: REORD ERED Result Comment: REOR DERED Performed By: #### L 100.0100, L500.2500 ####[facility] [address] [place], [address] GAP Normal 5-15 [facility] Comment on above: Order Comment: REORD ERED Result Comment: REOR DERED Performed By: #### L 100.0100, L500.2500 ####[facility] [address] [place], [address] Potassium Normal 3.5-5.1 [facility] Comment on above: Order Comment: THERESA LIMA Result Comment: MARIS RAYA Performed By: #### L 100.0100, L500.2500 ####[facility] [address] [place], [address] Basic Metabolic Profile (BMP) Normal 136-145 [facility] Comment on above: Order Comment: THERESA LIMA Result Comment: MARIS RAYA Performed By: #### L 100.0100, L500.2500 ####[facility] [address] [place], [address] Bedside Glucoseon 07-19-2024 FINGERSTICK GLU 135 mg/dL High 74-106 [facility] Comment on above: Result Comment: FANG GEMENT OF PATIENT CARE PER NURSING PROTOCOL Performed By: #### L 501.080 ####[facility] [address] [place], [address] FINGERSTICK GLU 227 mg/dL High 74-106 [facility] Comment on above: Result Comment: FANG GEMENT OF PATIENT CARE PER NURSING PROTOCOL Performed By: #### L 501.080 ####[facility] [address] [place], [address] FINGERSTICK GLU 120 mg/dL High 74-106 [facility] Comment on above: Result Comment: FANG GEMENT OF PATIENT CARE PER NURSING PROTOCOL Performed By: #### L 501.080 ####[facility] [address] [place], [address] CBC W/Diff, Automatedon - Absolute Lymph 2.07 X10 3/uL Normal 0.83-4.51 [facility] Comment on above: Performed By: #### L 100.0100, L500.2500 ####[facility] [address] [place], [address] Absolute Neut 13.1 X10 3/uL High 2.0-7.7 [facility] Comment on above: Performed By: #### L 100.0100, L500.2500 ####[facility] [address] [place], [address] Basophils/100 WBC (Bld) 0.5 % Normal 0-1 [facility] Comment on above: Performed By: #### L 100.0100, L500.2500 ####[facility] [address] [place], [address] Eosinophils/100 WBC (Bld) 1.6 % Normal 0-5 [facility] Comment on above: Performed By: #### L 100.0100, L500.2500 ####[facility] [address] [place], [address] Erythrocyte distribution width (RBC) [Ratio] 17.7 % High 11.6-14.6 [facility] Comment on above: Performed By: #### L 100.0100, L500.2500 ####[facility] [address] [place], [address] Hematocrit (Bld) [Volume fraction] 25.5 % Low 40-54 [facility] Comment on above: Performed By: #### L 100.0100, L500.2500 ####[facility] [address] [place], [address] Hemoglobin (Bld) [Mass/Vol] 7.7 g/dL Low 13.0-16.5 [facility] Comment on above: Performed By: #### L 100.0100, L500.2500 ####[facility] [address] [place], [address] IG% 2.300 High 0.0-0.9 [facility] Comment on above: Result Comment: IG% - Immature Granulocytes (promyelocytes, myelocytes andmetamyelocytes) > 1% indicates that a LEFT SHIFT is Present. Performed By: #### L 100.0100, L500.2500 ####[facility] [address] [place], [address] Lymphocytes/100 WBC (Bld) 12.1 % Low 19-41 [facility] Comment on above: Performed By: #### L 100.0100, L500.2500 ####[facility] [address] [place], [address] MCH (RBC) [Entitic mass] 28.1 pg Normal 27.0-32.0 [facility] Comment on above: Performed By: #### L 100.0100, L500.2500 ####[facility] [address] [place], [address] MCHC (RBC) [Mass/Vol] 30.2 g/dL Low 32-36 [facility] Comment on above: Performed By: #### L 100.0100, L500.2500 ####[facility] [address] [place], [address] MCV (RBC) [Entitic vol] 93.1 fL Normal 80-94 [facility] Comment on above: Performed By: #### L 100.0100, L500.2500 ####[facility] [address] [place], [address] Monocytes/100 WBC (Bld) 7.1 % Normal 0-10 [facility] Comment on above: Performed By: #### L 100.0100, L500.2500 ####[facility] [address] [place], [address] Neutrophils/100 WBC (Bld) 76.4 % High 47-70 [facility] Comment on above: Performed By: #### L 100.0100, L500.2500 ####[facility] [address] [place], [address] Nucleated RBC (Bld) [#/Vol] 0 10*3/uL Normal 0-5 [facility] Comment on above: Performed By: #### L 100.0100, L500.2500 ####[facility] [address] [place], [address] Platelet mean volume (Bld) [Entitic vol] 10.6 fL Normal 6.2-12.0 [facility] Comment on above: Performed By: #### L 100.0100, L500.2500 ####[facility] [address] [place], [address] Platelets (Bld) [#/Vol] 467 10*3/uL High 150-450 [facility] Comment on above: Performed By: #### L 100.0100, L500.2500 ####[facility] [address] [place], [address] RBC (Bld) [#/Vol] 2.74 10*6/uL Low 4.6-6.2 [facility] Comment on above: Performed By: #### L 100.0100, L500.2500 ####[facility] [address] [place], [address] RDW SD 59.6 fl High 35.1-43.9 [facility] Comment on above: Performed By: #### L 100.0100, L500.2500 ####[facility] [address] [place], [address] WBC (Bld) [#/Vol] 17.2 10*3/uL High 4.4-11.0 [facility] Comment on above: Performed By: #### L 100.0100, L500.2500 ####[facility] [address] [place], [address] Serum or plasma vancomycin m easurement (mass/volume)Ordered By: Jayla Osuna on 07-19-2024 Vancomycin [Mass/Vol] 16.7 ug/mL High 0.0-15.0 [facility] Vancomycin, Random Levelon 0 07-19-2024 VANCO, RANDOM 16.7 ug/mL High 0.0-15.0 [facility] Comment on above: Result Comment: VANC OMYCIN STANDARD DRUG THERAPY: CRITICAL VALUE IS > 15.0 mg/LVANCOMYCIN HIGH INTENSITY THERAPY: CRITICAL VALUE IS > 20.0 mg/LPLEASE CONTACT PHARMACY SERVICES (#0068) FOR INTERPRETATIONOF RESULTS. THIS RESULT DOES NOT REPRESENT A PEAK OR TROUGHLEVEL FOR THIS DRUG. Performed By: #### L 501.8850 ####[facility] [address] [place], [address] Basic Metabolic Profile (BMP )on 07-18-2024 GFR/1.73 sq M.predicted among non-blacks MDRD (S/P/Bld) [Vol rate/Area] 12 mL/min/{1.73_m2} Low >60 [facility] Comment on above: Order Comment: WILL REORDER Result Comment: WILL REORDERmL/min/1.73m2 CKD-EPI Creatinine Equation (2020) Performed By: #### L 100.0100, L500.2500 ####[facility] [address] [place], [address] Calcium Normal 8.5-10.1 [facility] Comment on above: Order Comment: WILL REORDER Result Comment: WILL REORDER Performed By: #### L 100.0100, L500.2500 ####[facility] [address] [place], [address] CL Normal 98-107 [facility] Comment on above: Order Comment: WILL REORDER Result Comment: WILL REORDER Performed By: #### L 100.0100, L500.2500 ####[facility] [address] [place], [address] CO2 Normal 21.0-32.0 [facility] Comment on above: Order Comment: WILL REORDER Result Comment: WILL REORDER Performed By: #### L 100.0100, L500.2500 ####[facility] [address] [place], [address] EST GFR - AA Normal >60 [facility] Comment on above: Order Comment: WILL REORDER Result Comment: WILL REORDER Performed By: #### L 100.0100, L500.2500 ####[facility] [address] [place], [address] GAP Normal 5-15 [facility] Comment on above: Order Comment: WILL REORDER Result Comment: WILL REORDER Performed By: #### L 100.0100, L500.2500 ####[facility] [address] [place], [address] Potassium Normal 3.5-5.1 [facility] Comment on above: Order Comment: WILL REORDER Result Comment: WILL REORDER Performed By: #### L 100.0100, L500.2500 ####[facility] [address] [place], [address] Basic Metabolic Profile (BMP) Normal 136-145 [facility] Comment on above: Order Comment: WILL REORDER Result Comment: WILL REORDER Performed By: #### L 100.0100, L500.2500 ####[facility] [address] [place], [address] Bedside Glucoseon 07-18-2024 FINGERSTICK GLU 110 mg/dL High 74-106 [facility] Comment on above: Result Comment: FANG GEMENT OF PATIENT CARE PER NURSING PROTOCOL Performed By: #### L 501.080 ####[facility] [address] [place], [address] FINGERSTICK GLU 156 mg/dL High 74-106 [facility] Comment on above: Result Comment: FANG GEMENT OF PATIENT CARE PER NURSING PROTOCOL Performed By: #### L 501.080 ####[facility] [address] [place], [address] FINGERSTICK GLU 139 mg/dL High 74-106 [facility] Comment on above: Result Comment: FANG GEMENT OF PATIENT CARE PER NURSING PROTOCOL Performed By: #### L 501.080 ####[facility] [address] [place], [address] FINGERSTICK GLU 155 mg/dL High 74-106 [facility] Comment on above: Result Comment: FANG GEMENT OF PATIENT CARE PER NURSING PROTOCOL Performed By: #### L 501.080 ####[facility] [address] [place], [address] FINGERSTICK GLU 229 mg/dL High 74-106 [facility] Comment on above: Result Comment: FANG GEMENT OF PATIENT CARE PER NURSING PROTOCOL Performed By: #### L 501.080 ####[facility] [address] [place], [address] Body Tissue Cultureon 2024 [facility] Normal [facility] Comment on above: Performed By: #### M 100.2910, M100.4001, M100.2000 ####[facility] [address] [place], [address] CBC W/Diff, Automatedon 06-24 PATH REV Reviewed Normal [facility] Comment on above: Result Comment: Neut rophilic leukocytosis with left shift.Normocytic anemia.Clinical correlation necessary.Jose Souza M.D. 07/18/24 AMENDED REPORT 07/18/24 4855 PATH REV previously reported as: September nitesh Performed By: #### L 100.0100, L500.2500 ####[facility] [address] [place], [address] Culture, Anaerobic Any Sourc reed 07-18-2024 CUAN Normal [facility] Comment on above: Performed By: #### M 100.4001, M100.2000, M100.3000 ####[facility] [address] [place], [address] Review by pathologistOrdered By: Jayla Osuna on 07-18-2024 Pathologist review Jeff (Unsp spec) [Interp] Reviewed [facility] Wound Cultureon 07-18-2024 WC Normal [facility] Comment on above: Performed By: #### M 100.4001, M100.3000, M100.2000 ####[facility] [address] [place], [address] WC Normal [facility] Comment on above: Performed By: #### M 100.2000, M100.3000, M100.4001 ####[facility] [address] [place], [address] Ankle Brachial Indexon 07-17 Ankle Brachial Index Normal [facility] Basic Metabolic Profile (BMP )on 07-17-2024 BUN/CRE 13.3 RATIO Normal 10-20 [facility] Comment on above: Performed By: #### L 500.2500, L100.0100 ####[facility] [address] [place], [address] CA,Total 8.3 mg/dL Low 8.5-10.1 [facility] Comment on above: Performed By: #### L 500.2500, L100.0100 ####[facility] [address] [place], [address] Chloride [Moles/Vol] 97 mmol/L Low 98-107 [facility] Comment on above: Performed By: #### L 500.2500, L100.0100 ####[facility] [address] [place], [address] CO2 [Moles/Vol] 25.0 mmol/L Normal 21.0-32.0 [facility] Comment on above: Performed By: #### L 500.2500, L100.0100 ####[facility] [address] [place], [address] Creatinine [Mass/Vol] 6.15 mg/dL High 0.70-1.30 [facility] Comment on above: Result Comment: The validity of the calculated GFR GFRAA in patients over70 years has not been determined. Clinical correlation isessential. Performed By: #### L 500.2500, L100.0100 ####[facility] [address] [place], [address] ECRCL 9.33 ml/min Normal [facility] Comment on above: Performed By: #### L 500.2500, L100.0100 ####[facility] [address] [place], [address] EST GFR - AA 11 mL/min Low >60 [facility] Comment on above: Result Comment: Afri can [place] GFR Calc Performed By: #### L 500.2500, L100.0100 ####[facility] [address] [place], [address] GAP 8 Normal 5-15 [facility] Comment on above: Performed By: #### L 500.2500, L100.0100 ####[facility] [address] [place], [address] GFR/1.73 sq M.predicted among non-blacks MDRD (S/P/Bld) [Vol rate/Area] 9 mL/min/{1.73_m2} Low >60 [facility] Comment on above: Result Comment: Non- GFR Calc Performed By: #### L 500.2500, L100.0100 ####[facility] [address] [place], [address] Glucose [Mass/Vol] 213 mg/dL High 74-106 [facility] Comment on above: Result Comment: Gluc ose result greater than or equal to 200 mg/dLsuggests DIABETES MELLITUS per A.D.A. criteria. Performed By: #### L 500.2500, L100.0100 ####[facility] [address] [place], [address] Potassium [Moles/Vol] 5.1 mmol/L Normal 3.5-5.1 [facility] Comment on above: Performed By: #### L 500.2500, L100.0100 ####[facility] [address] [place], [address] Sodium [Moles/Vol] 130 mmol/L Low 136-145 [facility] Comment on above: Performed By: #### L 500.2500, L100.0100 ####[facility] [address] [place], [address] Urea nitrogen [Mass/Vol] 82 mg/dL High 7-18 [facility] Comment on above: Performed By: #### L 500.2500, L100.0100 ####[facility] [address] [place], [address] Bedside Glucoseon 07-17-2024 FINGERSTICK GLU 119 mg/dL High 74-106 [facility] Comment on above: Result Comment: FANG GEMENT OF PATIENT CARE PER NURSING PROTOCOL Performed By: #### L 501.080 ####[facility] [address] [place], [address] FINGERSTICK GLU 226 mg/dL High 74-106 [facility] Comment on above: Result Comment: FANG GEMENT OF PATIENT CARE PER NURSING PROTOCOL Performed By: #### L 501.080 ####[facility] [address] [place], [address] FINGERSTICK GLU 203 mg/dL High 74-106 [facility] Comment on above: Result Comment: FANG GEMENT OF PATIENT CARE PER NURSING PROTOCOL Performed By: #### L 501.080 ####[facility] [address] [place], [address] FINGERSTICK GLU 208 mg/dL High 74-106 [facility] Comment on above: Result Comment: FANG GEMENT OF PATIENT CARE PER NURSING PROTOCOL Performed By: #### L 501.080 ####[facility] [address] [place], [address] Blood cultureOrdered By: Rosales Shore on 07-17-2024 Bacteria identified Cx Nom (Bld) No growth in 5 days. [facility] CBC W/Diff, Automatedon 06-24 Absolute Lymph 2.11 X10 3/uL Normal 0.83-4.51 [facility] Comment on above: Performed By: #### L 500.2500, L100.0100 ####[facility] [address] [place], [address] Absolute Neut 17.0 X10 3/uL High 2.0-7.7 [facility] Comment on above: Performed By: #### L 500.2500, L100.0100 ####[facility] [address] [place], [address] Basophils/100 WBC (Bld) 0.3 % Normal 0-1 [facility] Comment on above: Performed By: #### L 500.2500, L100.0100 ####[facility] [address] [place], [address] Eosinophils/100 WBC (Bld) 0.6 % Normal 0-5 [facility] Comment on above: Performed By: #### L 500.2500, L100.0100 ####[facility] [address] [place], [address] Erythrocyte distribution width (RBC) [Ratio] 17.7 % High 11.6-14.6 [facility] Comment on above: Performed By: #### L 500.2500, L100.0100 ####[facility] [address] [place], [address] Hematocrit (Bld) [Volume fraction] 23.7 % Low 40-54 [facility] Comment on above: Performed By: #### L 500.2500, L100.0100 ####[facility] [address] [place], [address] Hemoglobin (Bld) [Mass/Vol] 7.1 g/dL Low 13.0-16.5 [facility] Comment on above: Performed By: #### L 500.2500, L100.0100 ####[facility] [address] [place], [address] IG% 2.800 High 0.0-0.9 [facility] Comment on above: Result Comment: IG% - Immature Granulocytes (promyelocytes, myelocytes andmetamyelocytes) > 1% indicates that a LEFT SHIFT is Present. Performed By: #### L 500.2500, L100.0100 ####[facility] [address] [place], [address] Lymphocytes/100 WBC (Bld) 9.9 % Low 19-41 [facility] Comment on above: Performed By: #### L 500.2500, L100.0100 ####[facility] [address] [place], [address] MCH (RBC) [Entitic mass] 27.8 pg Normal 27.0-32.0 [facility] Comment on above: Performed By: #### L 500.2500, L100.0100 ####[facility] [address] [place], [address] MCHC (RBC) [Mass/Vol] 30.0 g/dL Low 32-36 [facility] Comment on above: Performed By: #### L 500.2500, L100.0100 ####[facility] [address] [place], [address] MCV (RBC) [Entitic vol] 92.9 fL Normal 80-94 [facility] Comment on above: Performed By: #### L 500.2500, L100.0100 ####[facility] [address] [place], [address] Monocytes/100 WBC (Bld) 6.6 % Normal 0-10 [facility] Comment on above: Performed By: #### L 500.2500, L100.0100 ####[facility] [address] [place], [address] Neutrophils/100 WBC (Bld) 79.8 % High 47-70 [facility] Comment on above: Performed By: #### L 500.2500, L100.0100 ####[facility] [address] [place], [address] Nucleated RBC (Bld) [#/Vol] 0 10*3/uL Normal 0-5 [facility] Comment on above: Performed By: #### L 500.2500, L100.0100 ####[facility] [address] [place], [address] Platelet mean volume (Bld) [Entitic vol] 10.7 fL Normal 6.2-12.0 [facility] Comment on above: Performed By: #### L 500.2500, L100.0100 ####[facility] [address] [place], [address] Platelets (Bld) [#/Vol] 378 10*3/uL Normal 150-450 [facility] Comment on above: Performed By: #### L 500.2500, L100.0100 ####[facility] [address] [place], [address] RBC (Bld) [#/Vol] 2.55 10*6/uL Low 4.6-6.2 [facility] Comment on above: Performed By: #### L 500.2500, L100.0100 ####[facility] [address] [place], [address] RDW SD 60.7 fl High 35.1-43.9 [facility] Comment on above: Performed By: #### L 500.2500, L100.0100 ####[facility] [address] [place], [address] WBC (Bld) [#/Vol] 21.2 10*3/uL High 4.4-11.0 [facility] Comment on above: Performed By: #### L 500.2500, L100.0100 ####[facility] [address] [place], [address] Chloride measurementOrdered By: Jayla Osuna on 07-17-2024 Chloride [Moles/Vol] 97 mmol/L Low 98-107 [facility] Gram Stainon 07-17-2024 GS UNK UNK Pre-lavage right lower extremity - collected in [place] Gram Stain Rare White Blood Cells 3+ Red Blood Cells Rare Gram positive cocci Normal [facility] Comment on above: Performed By: #### M 100.4001, M100.3000, M1.1999 ####[facility] [address] [place], [address] GS UNK UNK Post-lavage Right lower extremity Gram Stain 3+ Gram positive cocci Rare White Blood Cells Normal [facility] Comment on above: Performed By: #### M 100.2000, M100.3000, M100.4001 ####[facility] [address] [place], [address] GS Reason for Exam: Infection of right lower extremity Bone cortex right lower extremity Gram Stain 4+ Gram positive cocci Rare Gram negative rods No White Blood Cells Normal [facility] Comment on above: Performed By: #### M 100.2910, M100.4001, M1.1999 ####[facility] [address] [place], [address] US Art Duplex Bilat Lower Ex ton 07-17-2024 US Art Duplex Bilat Lower Ext Normal [facility] Vancomycin, Random Levelon 0 2-25-2025 VANCO, RANDOM 13.2 ug/mL Normal 0.0-15.0 [facility] Comment on above: Result Comment: VANC OMYCIN STANDARD DRUG THERAPY: CRITICAL VALUE IS > 15.0 mg/LVANCOMYCIN HIGH INTENSITY THERAPY: CRITICAL VALUE IS > 20.0 mg/LPLEASE CONTACT PHARMACY SERVICES (#9941) FOR INTERPRETATIONOF RESULTS. THIS RESULT DOES NOT REPRESENT A PEAK OR TROUGHLEVEL FOR THIS DRUG. Performed By: #### L 501.8850 ####[facility] [address] [place], [address] 12 Lead EKGon 07-16-2024 12 Lead EKG Normal [facility] Activated partial thrombopla stin time (aPTT) in platelet poor plasma by coagulation aOrdered By: Flavio Young on 07-16-2024 aPTT Coag (PPP) [Time] 39.7 s High 24.1-36.2 [facility] Anaerobic cultureOrdered By: Josef Garcia on 07-16-2024 Bacteria identified Anaer cx Nom (Unsp spec) Clostridium cadaveris Abnormal [facility] Bacteria identified Anaer cx Nom (Unsp spec) No anaerobic bacteria isolated. [facility] Bacterial tissue aerobic cul tureOrdered By: Josef Garcia on 07-16-2024 Bacteria identified Aer cx Nom (Tiss) Meth. resistant Staph. aureus Abnormal [facility] Basic Metabolic Profile (BMP )on 07-16-2024 BUN/CRE 13.8 RATIO Normal 10-20 [facility] Comment on above: Performed By: #### L 100.0100, L500.2500 ####[facility] [address] [place], [address] CA,Total 8.7 mg/dL Normal 8.5-10.1 [facility] Comment on above: Performed By: #### L 100.0100, L500.2500 ####[facility] [address] [place], [address] Chloride [Moles/Vol] 97 mmol/L Low 98-107 [facility] Comment on above: Performed By: #### L 100.0100, L500.2500 ####[facility] [address] [place], [address] CO2 [Moles/Vol] 26.0 mmol/L Normal 21.0-32.0 [facility] Comment on above: Performed By: #### L 100.0100, L500.2500 ####[facility] [address] [place], [address] Creatinine [Mass/Vol] 5.13 mg/dL High 0.70-1.30 [facility] Comment on above: Result Comment: The validity of the calculated GFR GFRAA in patients over70 years has not been determined. Clinical correlation isessential. Performed By: #### L 100.0100, L500.2500 ####[facility] [address] [place], [address] ECRCL 11.13 ml/min Normal [facility] Comment on above: Performed By: #### L 100.0100, L500.2500 ####[facility] [address] [place], [address] EST GFR - AA 14 mL/min Low >60 [facility] Comment on above: Result Comment: Afri can [place] GFR Calc Performed By: #### L 100.0100, L500.2500 ####[facility] [address] [place], [address] GAP 11 Normal 5-15 [facility] Comment on above: Performed By: #### L 100.0100, L500.2500 ####[facility] [address] [place], [address] GFR/1.73 sq M.predicted among non-blacks MDRD (S/P/Bld) [Vol rate/Area] 11 mL/min/{1.73_m2} Low >60 [facility] Comment on above: Result Comment: Non- GFR Calc Performed By: #### L 100.0100, L500.2500 ####[facility] [address] [place], [address] Glucose [Mass/Vol] 127 mg/dL High 74-106 [facility] Comment on above: Result Comment: Fast ing Glucose result greater than or equal to 126 mg/dLsuggests DIABETES MELLITUS per A.D.A. criteria. Performed By: #### L 100.0100, L500.2500 ####[facility] [address] [place], [address] Potassium [Moles/Vol] 4.3 mmol/L Normal 3.5-5.1 [facility] Comment on above: Performed By: #### L 100.0100, L500.2500 ####[facility] [address] [place], [address] Sodium [Moles/Vol] 134 mmol/L Low 136-145 [facility] Comment on above: Performed By: #### L 100.0100, L500.2500 ####[facility] [address] [place], [address] Urea nitrogen [Mass/Vol] 71 mg/dL High 7-18 [facility] Comment on above: Performed By: #### L 100.0100, L500.2500 ####[facility] [address] [place], [address] Bedside Glucoseon 07-16-2024 FINGERSTICK GLU 105 mg/dL Normal 74-106 [facility] Comment on above: Result Comment: FANG GEMENT OF PATIENT CARE PER NURSING PROTOCOL Performed By: #### L 501.080 ####[facility] [address] [place], [address] FINGERSTICK GLU 118 mg/dL High 74-106 [facility] Comment on above: Result Comment: FANG GEMENT OF PATIENT CARE PER NURSING PROTOCOL Performed By: #### L 501.080 ####[facility] [address] [place], [address] FINGERSTICK GLU 122 mg/dL High 74-106 [facility] Comment on above: Result Comment: FANG VAZQUEZ OF PATIENT CARE PER NURSING PROTOCOL Performed By: #### L 501.080 ####[facility] [address] [place], [address] Blood cultureOrdered By: Rosales Shore on 07-16-2024 Bacteria identified Cx Nom (Bld) No growth in 5 days. [facility] CBC W/Diff, Automatedon 06-24 PATH REV Reviewed Normal [facility] Comment on above: Result Comment: Neut rophilic leukocytosis with left shift.Normocytic anemia.Clinical correlation necessary.Jose Souza M.D. 07/16/24 AMENDED REPORT 07/16/24 1406 PATH REV previously reported as: September Performed By: #### L 101.9900, L500.2500, L100.0100, L501.6710 ####[facility] [address] [place], [address] Absolute Lymph 2.43 X10 3/uL Normal 0.83-4.51 [facility] Comment on above: Performed By: #### L 100.0100, L500.2500 ####[facility] [address] [place], [address] Absolute Neut 12.8 X10 3/uL High 2.0-7.7 [facility] Comment on above: Performed By: #### L 100.0100, L500.2500 ####[facility] [address] [place], [address] Basophils/100 WBC (Bld) 0.2 % Normal 0-1 [facility] Comment on above: Performed By: #### L 100.0100, L500.2500 ####[facility] [address] [place], [address] Eosinophils/100 WBC (Bld) 1.6 % Normal 0-5 [facility] Comment on above: Performed By: #### L 100.0100, L500.2500 ####[facility] [address] [place], [address] Erythrocyte distribution width (RBC) [Ratio] 17.7 % High 11.6-14.6 [facility] Comment on above: Performed By: #### L 100.0100, L500.2500 ####[facility] [address] [place], [address] Hematocrit (Bld) [Volume fraction] 25.2 % Low 40-54 [facility] Comment on above: Performed By: #### L 100.0100, L500.2500 ####[facility] [address] [place], [address] Hemoglobin (Bld) [Mass/Vol] 7.5 g/dL Low 13.0-16.5 [facility] Comment on above: Performed By: #### L 100.0100, L500.2500 ####[facility] [address] [place], [address] IG% 3.200 High 0.0-0.9 [facility] Comment on above: Result Comment: IG% - Immature Granulocytes (promyelocytes, myelocytes andmetamyelocytes) > 1% indicates that a LEFT SHIFT is Present. Performed By: #### L 100.0100, L500.2500 ####[facility] [address] [place], [address] Lymphocytes/100 WBC (Bld) 14.0 % Low 19-41 [facility] Comment on above: Performed By: #### L 100.0100, L500.2500 ####[facility] [address] [place], [address] MCH (RBC) [Entitic mass] 28.2 pg Normal 27.0-32.0 [facility] Comment on above: Performed By: #### L 100.0100, L500.2500 ####[facility] [address] [place], [address] MCHC (RBC) [Mass/Vol] 29.8 g/dL Low 32-36 [facility] Comment on above: Performed By: #### L 100.0100, L500.2500 ####[facility] [address] [place], [address] MCV (RBC) [Entitic vol] 94.7 fL High 80-94 [facility] Comment on above: Performed By: #### L 100.0100, L500.2500 ####[facility] [address] [place], [address] Monocytes/100 WBC (Bld) 7.5 % Normal 0-10 [facility] Comment on above: Performed By: #### L 100.0100, L500.2500 ####[facility] [address] [place], [address] Neutrophils/100 WBC (Bld) 73.5 % High 47-70 [facility] Comment on above: Performed By: #### L 100.0100, L500.2500 ####[facility] [address] [place], [address] Nucleated RBC (Bld) [#/Vol] 0 10*3/uL Normal 0-5 [facility] Comment on above: Performed By: #### L 100.0100, L500.2500 ####[facility] [address] [place], [address] Platelet mean volume (Bld) [Entitic vol] 10.6 fL Normal 6.2-12.0 [facility] Comment on above: Performed By: #### L 100.0100, L500.2500 ####[facility] [address], [address] Platelets (Bld) [#/Vol] 378 10*3/uL Normal 150-450 [facility] Comment on above: Performed By: #### L 100.0100, L500.2500 ####[facility] [address] [place], [address] RBC (Bld) [#/Vol] 2.66 10*6/uL Low 4.6-6.2 [facility] Comment on above: Performed By: #### L 100.0100, L500.2500 ####[facility] [address] [place], [address] RDW SD 60.4 fl High 35.1-43.9 [facility] Comment on above: Performed By: #### L 100.0100, L500.2500 ####[facility] [address] [place], [address] WBC (Bld) [#/Vol] 17.4 10*3/uL High 4.4-11.0 [facility] Comment on above: Performed By: #### L 100.0100, L500.2500 ####[facility] [address] [place], [address] Consultation - Infectious Dx on 07-16-2024 Consultation - Infectious Dx Normal [facility] Consultation - Nephrologyon 07-16-2024 Consultation - Nephrology Normal [facility] Culture, Blood (WB)on 2024 CUB Normal [facility] Comment on above: Performed By: #### M 100.636, M200.1000 ####[facility] [address] [place], [address] Foot 2 Viewson 07-16-2024 Foot 2 Views Normal [facility] Gram stainOrdered By: Kesha Garcia on 07-16-2024 Microscopic observation Gram stain Nom (Unsp spec) [facility] Hemoglobin A1con 07-16-2024 HbA1c (Bld) [Mass fraction] 6.0 % High 3.8-5.6 [facility] Comment on above: Order Comment: Comme nts: Pre-operative Result Comment: Norm al < 5.7 % Prediabetic 5.7 - 6.4 % Diabetic >or= 6.5 % Please note range changes. Performed By: #### L 300.3900, L501.9985, L300.4310 ####[facility] [address] [place], [address] Hemoglobin A1c percentageOrd ered By: Flavio Young on 07-16-2024 HbA1c (Bld) [Mass fraction] 6.0 % High 3.8-5.6 [facility] MR/POSTOP.ANEon 07-16-2024 MR/POSTOP.ANE Normal [facility] MR/YJDLJJVR0ng 07-16-2024 MR/POSTOPAN2 Normal [facility] Operative Reporton Operative Report Normal [facility] Partial Thromboplast Timeon 07-16-2024 aPTT Coag (Bld) [Time] 39.7 s High 24.1-36.2 [facility] Comment on above: Order Comment: Comme nts: Pre-operative Performed By: #### L 300.3900, L501.9985, L300.4310 ####[facility] [address] [place], [address] Prothrombin Time w/INRon INR Coag (PPP) [Relative time] 1.3 {INR} Normal [facility] Comment on above: Order Comment: Comme nts: Pre-operative Performed By: #### L 300.3900, L501.9985, L300.4310 ####[facility] [address] [place], [address] PT Coag (PPP) [Time] 16.8 s High 11.7-14.9 [facility] Comment on above: Order Comment: Comme nts: Pre-operative Performed By: #### L 300.3900, L501.9985, L300.4310 ####[facility] [address] [place], [address] Prothrombin timeOrdered By: Flavio Young on 07-16-2024 PT Coag (PPP) [Time] 16.8 s High 11.7-14.9 [facility] Routine wound cultureOrdered By: Josef Garcia on 07-16-2024 Microbial culture, routine Meth. resistant Staph. aureus Abnormal [facility] Basic Metabolic Profile (BMP )on 07-15-2024 BUN/CRE 13.9 RATIO Normal 10-20 [facility] Comment on above: Performed By: #### L 500.2500, L100.0100 ####[facility] [address] [place], [address] CA,Total 8.8 mg/dL Normal 8.5-10.1 [facility] Comment on above: Performed By: #### L 500.2500, L100.0100 ####[facility] [address] [place], [address] Chloride [Moles/Vol] 98 mmol/L Normal 98-107 [facility] Comment on above: Performed By: #### L 500.2500, L100.0100 ####[facility] [address] [place], [address] CO2 [Moles/Vol] 27.0 mmol/L Normal 21.0-32.0 [facility] Comment on above: Performed By: #### L 500.2500, L100.0100 ####[facility] [address] [place], [address] Creatinine [Mass/Vol] 3.97 mg/dL High 0.70-1.30 [facility] Comment on above: Result Comment: The validity of the calculated GFR GFRAA in patients over70 years has not been determined. Clinical correlation isessential. Performed By: #### L 500.2500, L100.0100 ####[facility] [address] [place], [address] ECRCL 14.64 ml/min Normal [facility] Comment on above: Performed By: #### L 500.2500, L100.0100 ####[facility] [address] [place], [address] EST GFR - AA 19 mL/min Low >60 [facility] Comment on above: Result Comment: Afri can [place] GFR Calc Performed By: #### L 500.2500, L100.0100 ####[facility] [address] [place], [address] GAP 9 Normal 5-15 [facility] Comment on above: Performed By: #### L 500.2500, L100.0100 ####[facility] [address] [place], [address] GFR/1.73 sq M.predicted among non-blacks MDRD (S/P/Bld) [Vol rate/Area] 15 mL/min/{1.73_m2} Low >60 [facility] Comment on above: Result Comment: Non- GFR Calc Performed By: #### L 500.2500, L100.0100 ####[facility] [address] [place], [address] Glucose [Mass/Vol] 204 mg/dL High 74-106 [facility] Comment on above: Result Comment: Gluc ose result greater than or equal to 200 mg/dLsuggests DIABETES MELLITUS per A.D.A. criteria. Performed By: #### L 500.2500, L100.0100 ####[facility] [address] [place], [address] Potassium [Moles/Vol] 3.5 mmol/L Normal 3.5-5.1 [facility] Comment on above: Performed By: #### L 500.2500, L100.0100 ####[facility] [address] [place], [address] Sodium [Moles/Vol] 133 mmol/L Low 136-145 [facility] Comment on above: Performed By: #### L 500.2500, L100.0100 ####[facility] [address] [place], [address] Urea nitrogen [Mass/Vol] 55 mg/dL High 7-18 [facility] Comment on above: Performed By: #### L 500.2500, L100.0100 ####[facility] [address] [place], [address] Bedside Glucoseon 07-15-2024 FINGERSTICK GLU 138 mg/dL High 74-106 [facility] Comment on above: Result Comment: FANG GEMENT OF PATIENT CARE PER NURSING PROTOCOL Performed By: #### L 501.080 ####[facility] [address] [place], [address] FINGERSTICK GLU 57 mg/dL Low 74-106 [facility] Comment on above: Result Comment: FANG GEMENT OF PATIENT CARE PER NURSING PROTOCOL Performed By: #### L 501.080 ####[facility] [address] [place], [address] FINGERSTICK GLU 141 mg/dL High 74-106 [facility] Comment on above: Result Comment: FANG GEMENT OF PATIENT CARE PER NURSING PROTOCOL Performed By: #### L 501.080 ####[facility] [address] [place], [address] FINGERSTICK GLU 214 mg/dL High 74-106 [facility] Comment on above: Result Comment: FANG GEMENT OF PATIENT CARE PER NURSING PROTOCOL Performed By: #### L 501.080 ####[facility] [address] [place], [address] CBC W/Diff, Automatedon 06-24 Absolute Lymph 2.18 X10 3/uL Normal 0.83-4.51 [facility] Comment on above: Performed By: #### L 500.2500, L100.0100 ####[facility] [address] [place], [address] Absolute Neut 14.1 X10 3/uL High 2.0-7.7 [facility] Comment on above: Performed By: #### L 500.2500, L100.0100 ####[facility] [address] [place], [address] Basophils/100 WBC (Bld) 0.2 % Normal 0-1 [facility] Comment on above: Performed By: #### L 500.2500, L100.0100 ####[facility] [address] [place], [address] Eosinophils/100 WBC (Bld) 1.2 % Normal 0-5 [facility] Comment on above: Performed By: #### L 500.2500, L100.0100 ####[facility] [address] [place], [address] Erythrocyte distribution width (RBC) [Ratio] 17.6 % High 11.6-14.6 [facility] Comment on above: Performed By: #### L 500.2500, L100.0100 ####[facility] [address] [place], [address] Hematocrit (Bld) [Volume fraction] 26.7 % Low 40-54 [facility] Comment on above: Performed By: #### L 500.2500, L100.0100 ####[facility] [address] [place], [address] Hemoglobin (Bld) [Mass/Vol] 7.8 g/dL Low 13.0-16.5 [facility] Comment on above: Performed By: #### L 500.2500, L100.0100 ####[facility] [address] [place], [address] IG% 2.500 High 0.0-0.9 [facility] Comment on above: Result Comment: IG% - Immature Granulocytes (promyelocytes, myelocytes andmetamyelocytes) > 1% indicates that a LEFT SHIFT is Present. Performed By: #### L 500.2500, L100.0100 ####[facility] [address] [place], [address] Lymphocytes/100 WBC (Bld) 11.9 % Low 19-41 [facility] Comment on above: Performed By: #### L 500.2500, L100.0100 ####[facility] [address] [place], [address] MCH (RBC) [Entitic mass] 27.9 pg Normal 27.0-32.0 [facility] Comment on above: Performed By: #### L 500.2500, L100.0100 ####[facility] [address] [place], [address] MCHC (RBC) [Mass/Vol] 29.2 g/dL Low 32-36 [facility] Comment on above: Performed By: #### L 500.2500, L100.0100 ####[facility] [address] [place], [address] MCV (RBC) [Entitic vol] 95.4 fL High 80-94 [facility] Comment on above: Performed By: #### L 500.2500, L100.0100 ####[facility] [address] [place], [address] Monocytes/100 WBC (Bld) 7.1 % Normal 0-10 [facility] Comment on above: Performed By: #### L 500.2500, L100.0100 ####[facility] [address] [place], [address] Neutrophils/100 WBC (Bld) 77.1 % High 47-70 [facility] Comment on above: Performed By: #### L 500.2500, L100.0100 ####[facility] [address] [place], [address] Nucleated RBC (Bld) [#/Vol] 0 10*3/uL Normal 0-5 [facility] Comment on above: Performed By: #### L 500.2500, L100.0100 ####[facility] [address] [place], [address] Platelet mean volume (Bld) [Entitic vol] 10.7 fL Normal 6.2-12.0 [facility] Comment on above: Performed By: #### L 500.2500, L100.0100 ####[facility] [address] [place], [address] Platelets (Bld) [#/Vol] 361 10*3/uL Normal 150-450 [facility] Comment on above: Performed By: #### L 500.2500, L100.0100 ####[facility] [address] [place], [address] RBC (Bld) [#/Vol] 2.80 10*6/uL Low 4.6-6.2 [facility] Comment on above: Performed By: #### L 500.2500, L100.0100 ####[facility] [address] [place], [address] RDW SD 61.1 fl High 35.1-43.9 [facility] Comment on above: Performed By: #### L 500.2500, L100.0100 ####[facility] [address] [place], [address] WBC (Bld) [#/Vol] 18.3 10*3/uL High 4.4-11.0 [facility] Comment on above: Performed By: #### L 500.2500, L100.0100 ####[facility] [address] [place], [address] Foot min 3 Viewson 5 Foot min 3 Views Normal [facility] Wound Cultureon 07-15-2024 WC Normal [facility] Comment on above: Performed By: #### M 100.4001, M100.2000, M100.3000 ####[facility] [address] [place], [address] BC GPC IDon 07-14-2024 BC GPC ID Normal [facility] Comment on above: Performed By: #### M 100.636, M200.1000 ####[facility] [address] [place], [address] Basic Metabolic Profile (BMP )on 07-14-2024 BUN/CRE 11.0 RATIO Normal 10-20 [facility] Comment on above: Performed By: #### L 500.2500, L100.0100 ####[facility] [address] [place], [address] CA,Total 8.6 mg/dL Normal 8.5-10.1 [facility] Comment on above: Performed By: #### L 500.2500, L100.0100 ####[facility] [address] [place], [address] Chloride [Moles/Vol] 94 mmol/L Low 98-107 [facility] Comment on above: Performed By: #### L 500.2500, L100.0100 ####[facility] [address] [place], [address] CO2 [Moles/Vol] 30.0 mmol/L Normal 21.0-32.0 [facility] Comment on above: Performed By: #### L 500.2500, L100.0100 ####[facility] [address] [place], [address] Creatinine [Mass/Vol] 4.84 mg/dL High 0.70-1.30 [facility] Comment on above: Result Comment: The validity of the calculated GFR GFRAA in patients over70 years has not been determined. Clinical correlation isessential. Performed By: #### L 500.2500, L100.0100 ####[facility] [address] [place], [address] ECRCL 11.51 ml/min Normal [facility] Comment on above: Performed By: #### L 500.2500, L100.0100 ####[facility] [address] [place], [address] EST GFR - AA 15 mL/min Low >60 [facility] Comment on above: Result Comment: Afri can [place] GFR Calc Performed By: #### L 500.2500, L100.0100 ####[facility] [address] [place], [address] GAP 8 Normal 5-15 [facility] Comment on above: Performed By: #### L 500.2500, L100.0100 ####[facility] [address] [place], [address] GFR/1.73 sq M.predicted among non-blacks MDRD (S/P/Bld) [Vol rate/Area] 12 mL/min/{1.73_m2} Low >60 [facility] Comment on above: Result Comment: Non- GFR Calc Performed By: #### L 500.2500, L100.0100 ####[facility] [address] [place], [address] Glucose [Mass/Vol] 244 mg/dL High 74-106 [facility] Comment on above: Result Comment: Gluc ose result greater than or equal to 200 mg/dLsuggests DIABETES MELLITUS per A.D.A. criteria. Performed By: #### L 500.2500, L100.0100 ####[facility] [address] [place], [address] Potassium [Moles/Vol] 3.4 mmol/L Low 3.5-5.1 [facility] Comment on above: Performed By: #### L 500.2500, L100.0100 ####[facility] [address] [place], [address] Sodium [Moles/Vol] 132 mmol/L Low 136-145 [facility] Comment on above: Performed By: #### L 500.2500, L100.0100 ####[facility] [address] [place], [address] Urea nitrogen [Mass/Vol] 53 mg/dL High 7-18 [facility] Comment on above: Performed By: #### L 500.2500, L100.0100 ####[facility] [address] [place], [address] Bedside Glucoseon 07-14-2024 FINGERSTICK GLU 196 mg/dL High 74-106 [facility] Comment on above: Result Comment: FANG GEMENT OF PATIENT CARE PER NURSING PROTOCOL Performed By: #### L 501.080 ####[facility] [address] [place], [address] FINGERSTICK GLU 103 mg/dL Normal 74-106 [facility] Comment on above: Result Comment: FANG GEMENT OF PATIENT CARE PER NURSING PROTOCOL Performed By: #### L 501.080 ####[facility] [address] [place], [address] FINGERSTICK GLU 183 mg/dL High 74-106 [facility] Comment on above: Result Comment: FANG GEMENT OF PATIENT CARE PER NURSING PROTOCOL Performed By: #### L 501.080 ####[facility] [address] [place], [address] FINGERSTICK GLU 239 mg/dL High 74-106 [facility] Comment on above: Result Comment: FANG GEMENT OF PATIENT CARE PER NURSING PROTOCOL Performed By: #### L 501.080 ####[facility] [address] [place], [address] CBC W/Diff, Automatedon -2 -2024 Absolute Lymph 1.49 X10 3/uL Normal 0.83-4.51 [facility] Comment on above: Performed By: #### L 500.2500, L100.0100 ####[facility] [address] [place], [address] Absolute Neut 14.7 X10 3/uL High 2.0-7.7 [facility] Comment on above: Performed By: #### L 500.2500, L100.0100 ####[facility] [address] [place], [address] Basophils/100 WBC (Bld) 0.2 % Normal 0-1 [facility] Comment on above: Performed By: #### L 500.2500, L100.0100 ####[facility] [address] [place], [address] Eosinophils/100 WBC (Bld) 0.9 % Normal 0-5 [facility] Comment on above: Performed By: #### L 500.2500, L100.0100 ####[facility] [address] [place], [address] Erythrocyte distribution width (RBC) [Ratio] 17.6 % High 11.6-14.6 [facility] Comment on above: Performed By: #### L 500.2500, L100.0100 ####[facility] [address] [place], [address] Hematocrit (Bld) [Volume fraction] 25.3 % Low 40-54 [facility] Comment on above: Performed By: #### L 500.2500, L100.0100 ####[facility] [address] [place], [address] Hemoglobin (Bld) [Mass/Vol] 7.8 g/dL Low 13.0-16.5 [facility] Comment on above: Performed By: #### L 500.2500, L100.0100 ####[facility] [address] [place], [address] IG% 3.300 High 0.0-0.9 [facility] Comment on above: Result Comment: IG% - Immature Granulocytes (promyelocytes, myelocytes andmetamyelocytes) > 1% indicates that a LEFT SHIFT is Present. Performed By: #### L 500.2500, L100.0100 ####[facility] [address] [place], [address] Lymphocytes/100 WBC (Bld) 8.2 % Low 19-41 [facility] Comment on above: Performed By: #### L 500.2500, L100.0100 ####[facility] [address] [place], [address] MCH (RBC) [Entitic mass] 28.8 pg Normal 27.0-32.0 [facility] Comment on above: Performed By: #### L 500.2500, L100.0100 ####[facility] [address] [place], [address] MCHC (RBC) [Mass/Vol] 30.8 g/dL Low 32-36 [facility] Comment on above: Performed By: #### L 500.2500, L100.0100 ####[facility] [address] [place], [address] MCV (RBC) [Entitic vol] 93.4 fL Normal 80-94 [facility] Comment on above: Performed By: #### L 500.2500, L100.0100 ####[facility] [address] [place], [address] Monocytes/100 WBC (Bld) 7.2 % Normal 0-10 [facility] Comment on above: Performed By: #### L 500.2500, L100.0100 ####[facility] [address], [address] Neutrophils/100 WBC (Bld) 80.2 % High 47-70 [facility] Comment on above: Performed By: #### L 500.2500, L100.0100 ####[facility] [address] [place], [address] Nucleated RBC (Bld) [#/Vol] 0 10*3/uL Normal 0-5 [facility] Comment on above: Performed By: #### L 500.2500, L100.0100 ####[facility] [address] [place], [address] Platelet mean volume (Bld) [Entitic vol] 10.6 fL Normal 6.2-12.0 [facility] Comment on above: Performed By: #### L 500.2500, L100.0100 ####[facility] [address] [place], [address] Platelets (Bld) [#/Vol] 346 10*3/uL Normal 150-450 [facility] Comment on above: Performed By: #### L 500.2500, L100.0100 ####[facility] [address] [place], [address] RBC (Bld) [#/Vol] 2.71 10*6/uL Low 4.6-6.2 [facility] Comment on above: Performed By: #### L 500.2500, L100.0100 ####[facility] [address] [place], [address] RDW SD 59.7 fl High 35.1-43.9 [facility] Comment on above: Performed By: #### L 500.2500, L100.0100 ####[facility] [address], [address] WBC (Bld) [#/Vol] 18.3 10*3/uL High 4.4-11.0 [facility] Comment on above: Performed By: #### L 500.2500, L100.0100 ####[facility] [address] [place], [address] Echo Completeon 07-14-2024 Echo Complete Normal [facility] Gram Stainon 07-14-2024 GS Gram Stain 1+ Gram positive rods 4+ Gram positive cocci Rare White Blood Cells No Epithelial cells Normal [facility] Comment on above: Performed By: #### M 100.4001, M100.2000, M100.3000 ####[facility] [address] [place], [address] Vancomycin, Random Levelon 0 07-14-2024 VANCO, RANDOM 15.3 ug/mL High 0.0-15.0 [facility] Comment on above: Order Comment: Comme nts: please draw with AM labs Result Comment: VANC OMYCIN STANDARD DRUG THERAPY: CRITICAL VALUE IS > 15.0 mg/LVANCOMYCIN HIGH INTENSITY THERAPY: CRITICAL VALUE IS > 20.0 mg/LPLEASE CONTACT PHARMACY SERVICES (#5631) FOR INTERPRETATIONOF RESULTS. THIS RESULT DOES NOT REPRESENT A PEAK OR TROUGHLEVEL FOR THIS DRUG. Performed By: #### L 501.8850 ####[facility] [address] [place], [address] Anaerobic cultureOrdered By: Chung Humphreys on 07-13-2024 Bacteria identified Anaer cx Nom (Unsp spec) Clostridium perfringens Abnormal [facility] Basic Metabolic Profile (BMP )on 07-13-2024 BUN/CRE 8.5 RATIO Low 10-20 [facility] Comment on above: Performed By: #### L 101.9900, L500.2500, L100.0100, L501.6710 ####[facility] [address] [place], [address] CA,Total 8.9 mg/dL Normal 8.5-10.1 [facility] Comment on above: Performed By: #### L 101.9900, L500.2500, L100.0100, L501.6710 ####[facility] [address] [place], [address] Chloride [Moles/Vol] 93 mmol/L Low 98-107 [facility] Comment on above: Performed By: #### L 101.9900, L500.2500, L100.0100, L501.6710 ####[facility] [address] [place], [address] CO2 [Moles/Vol] 32.0 mmol/L Normal 21.0-32.0 [facility] Comment on above: Performed By: #### L 101.9900, L500.2500, L100.0100, L501.6710 ####[facility] [address] [place], [address] Creatinine [Mass/Vol] 4.35 mg/dL High 0.70-1.30 [facility] Comment on above: Result Comment: The validity of the calculated GFR GFRAA in patients over70 years has not been determined. Clinical correlation isessential. Performed By: #### L 101.9900, L500.2500, L100.0100, L501.6710 ####[facility] [address] [place], [address] ECRCL 13.09 ml/min Normal [facility] Comment on above: Performed By: #### L 101.9900, L500.2500, L100.0100, L501.6710 ####[facility] [address] [place], [address] EST GFR - AA 17 mL/min Low >60 [facility] Comment on above: Result Comment: Afri can [place] GFR Calc Performed By: #### L 101.9900, L500.2500, L100.0100, L501.6710 ####[facility] [address] [place], [address] GAP 8 Normal 5-15 [facility] Comment on above: Performed By: #### L 101.9900, L500.2500, L100.0100, L501.6710 ####[facility] [address] [place], [address] GFR/1.73 sq M.predicted among non-blacks MDRD (S/P/Bld) [Vol rate/Area] 14 mL/min/{1.73_m2} Low >60 [facility] Comment on above: Result Comment: Non- GFR Calc Performed By: #### L 101.9900, L500.2500, L100.0100, L501.6710 ####[facility] [address] [place], [address] Glucose [Mass/Vol] 132 mg/dL High 74-106 [facility] Comment on above: Result Comment: Fast ing Glucose result greater than or equal to 126 mg/dLsuggests DIABETES MELLITUS per A.D.A. criteria. Performed By: #### L 101.9900, L500.2500, L100.0100, L501.6710 ####[facility] [address] [place], [address] Potassium [Moles/Vol] 3.7 mmol/L Normal 3.5-5.1 [facility] Comment on above: Result Comment: Slig ht Hemolysis, Result may be falsely increased. Performed By: #### L 101.9900, L500.2500, L100.0100, L501.6710 ####[facility] [address] [place], [address] Sodium [Moles/Vol] 133 mmol/L Low 136-145 [facility] Comment on above: Performed By: #### L 101.9900, L500.2500, L100.0100, L501.6710 ####[facility] [address] [place], [address] Urea nitrogen [Mass/Vol] 37 mg/dL High 7-18 [facility] Comment on above: Performed By: #### L 101.9900, L500.2500, L100.0100, L501.6710 ####[facility] [address] [place], [address] Bedside Glucoseon 07-13-2024 FINGERSTICK GLU 231 mg/dL High 74-106 [facility] Comment on above: Result Comment: FANG VAZQUEZ OF PATIENT CARE PER NURSING PROTOCOL Performed By: #### L 501.080 ####[facility] [address] [place], [place], [id number] Blood cultureOrdered By: Noelle Humphreys on 07-13-2024 Bacteria identified Cx Nom (Bld) Meth. resistant Staph. aureus Abnormal [facility] Blood manual differential co mment interpretation (narrative result)Ordered By: Chung Humphreys on 07-13-2024 Manual differential comment Jeff (Bld) [Interp] SEE COMMENT [facility] C-reactive protein measureme nt by high sensitivity methodOrdered By: Chung Humphreys on 07-13-2024 C-reactive protein measurement by high sensitivity method 301.00 mg/L High 0.0-3.0 [facility] CRPon 07-13-2024 C-REACTIVE PROT 301.00 mg/L High 0.0-3.0 [facility] Comment on above: Result Comment: C-Re active Protein (CRP) provides useful information for thediagnosis, therapy and monitoring of inflammatory processesand associated diseases. For the evaluation of Relative Riskfor Cardiovascular Disease, a High Sensitivity CRP (HSCRP)should be ordered. Performed By: #### L 101.9900, L500.2500, L100.0100, L501.6710 ####[facility] [address] [place], [address] Chest PA and Lateralon 07-13 Chest PA and Lateral Normal [facility] Emergency Department Summary on 07-13-2024 Emergency Department Summary Normal [facility] Erythrocyte Sed Rateon 07-13 SED RATE 53 mm/hr High 0-20 [facility] Comment on above: Performed By: #### L 101.9900, L500.2500, L100.0100, L501.6710 ####[facility] [id number] [place], [place], [id number] Erythrocyte morphology asses smentOrdered By: Chung Humphreys on 07-13-2024 RBC morphology finding Nom (Bld) N CHROM NORMAL NORM C&C [facility] Erythrocyte sedimentation ra teOrdered By: Chung Humphreys on 07-13-2024 ESR (Bld) [Velocity] 53 mm/h High 0-20 [facility] Foot min 3 Viewson 5 Foot min 3 Views Normal [facility] Gram stainOrdered By: Kevin Humphreys on 07-13-2024 Microscopic observation Gram stain Nom (Unsp spec) [facility] H AND P Exam - Hospitaliston 07-13-2024 H&P Exam - Hospitalist Normal [facility] Hypochromatic red blood cell detectionOrdered By: Chung Humphreys on 07-13-2024 Hypochromia Ql (Bld) RARE [facility] Influenza virus A and B and SARS-CoV-2 (COVID-19) and Respiratory syncytial virus RNAOrdered By: Chung Humphreys on 07-13-2024 SARS-CoV-2 (COVID-19) RNA EZEKIEL+probe Ql (Unsp spec) [facility] M100.678on 07-13-2024 M100.678 SARS-CoV-2 (COVID 19 ) Negative INFLUENZA A Negative INFLUENZA B Negative RSV PCR Negative Normal [facility] Comment on above: Performed By: #### M 100.678 ####[facility] [address] [place], [place], [id number] Macrocytes detectionOrdered By: Chung Humphreys on 07-13-2024 Macrocytes Ql (Bld) 1+ [facility] No Panel InformationOrdered By: Chung Humphreys on 07-13-2024 1+ [facility] Organism identificationOrder ed By: Chung Humphreys on 07-13-2024 Microorganism identified Cx Nom (Unsp spec) Meth. resistant Staph. aureus Abnormal [facility] Platelet estimateOrdered By: Chung Humphreys on 07-13-2024 Platelets LM Ql (Bld) ADEQUATE ADEQ [facility] Routine wound cultureOrdered By: Chung Humphreys on 07-13-2024 Microbial culture, routine Meth. resistant Staph. aureus Abnormal [facility] Urinalysis, Completeon 07-13 BACTERIA Normal None Seen [facility] Comment on above: Order Comment: SENT LABEL TO MS3 TO COLLECTCOLLECTOR TO SPECIFY Result Comment: JAYY ENT DISCHARGED Performed By: #### L 400.0001 ####[facility] [address] [place], [address] BILIRUBIN URINE Normal Negative [facility] Comment on above: Order Comment: SENT LABEL TO MS3 TO COLLECTCOLLECTOR TO SPECIFY Result Comment: JAYY ENT DISCHARGED Performed By: #### L 400.0001 ####[facility] [address] [place], [address] Clarity (U) Normal Clear [facility] Comment on above: Order Comment: SENT LABEL TO MS3 TO COLLECTCOLLECTOR TO SPECIFY Result Comment: JAYY ENT DISCHARGED Performed By: #### L 400.0001 ####[facility] [address] [place], [address] Color (U) Normal Yellow [facility] Comment on above: Order Comment: SENT LABEL TO MS3 TO COLLECTCOLLECTOR TO SPECIFY Result Comment: JAYY ENT DISCHARGED Performed By: #### L 400.0001 ####[facility] [address] [place], [address] EPI,SQUAMOUS Normal 0-5 [facility] Comment on above: Order Comment: SENT LABEL TO MS3 TO COLLECTCOLLECTOR TO SPECIFY Result Comment: JAYY ENT DISCHARGED Performed By: #### L 400.0001 ####[facility] [address] [place], [address] GLUCOSE, UR Normal Normal [facility] Comment on above: Order Comment: SENT LABEL TO MS3 TO COLLECTCOLLECTOR TO SPECIFY Result Comment: JAYY ENT DISCHARGED Performed By: #### L 400.0001 ####[facility] [address] [place], [address] KETONE UR Normal Negative [facility] Comment on above: Order Comment: SENT LABEL TO MS3 TO COLLECTCOLLECTOR TO SPECIFY Result Comment: JAYY ENT DISCHARGED Performed By: #### L 400.0001 ####[facility] [address] [facility] [address] LEUK ESTERASE Normal Negative [facility] Comment on above: Order Comment: SENT LABEL TO MS3 TO COLLECTCOLLECTOR TO SPECIFY Result Comment: JAYY ENT DISCHARGED Performed By: #### L 400.0001 ####[facility] [address] [place] [id number] Mucus Ql (Urine sed) Normal [facility] Comment on above: Order Comment: SENT LABEL TO MS3 TO COLLECTCOLLECTOR TO SPECIFY Result Comment: JAYY ENT DISCHARGED Performed By: #### L 400.0001 ####[facility] [address] [facility] [address] Nitrite Ql (U) Normal Negative [facility] Comment on above: Order Comment: SENT LABEL TO MS3 TO COLLECTCOLLECTOR TO SPECIFY Result Comment: JAYY ENT DISCHARGED Performed By: #### L 400.0001 ####[facility] [address] [facility] [address] OCCULT BLOOD-UR Normal Negative [facility] Comment on above: Order Comment: SENT LABEL TO MS3 TO COLLECTCOLLECTOR TO SPECIFY Result Comment: JAYY ENT DISCHARGED Performed By: #### L 400.0001 ####[facility] [address] [facility] [address] pH UR Normal 5.0 - 8.0 [facility] Comment on above: Order Comment: SENT LABEL TO MS3 TO COLLECTCOLLECTOR TO SPECIFY Result Comment: JAYY ENT DISCHARGED Performed By: #### L 400.0001 ####[facility] [address] [place], [address] PROT DIPSTX Normal Negative [facility] Comment on above: Order Comment: SENT LABEL TO MS3 TO COLLECTCOLLECTOR TO SPECIFY Result Comment: JAYY ENT DISCHARGED Performed By: #### L 400.0001 ####[facility] [address] [place], [address] RBC Normal 0-5 [facility] Comment on above: Order Comment: SENT LABEL TO MS3 TO COLLECTCOLLECTOR TO SPECIFY Result Comment: JAYY ENT DISCHARGED Performed By: #### L 400.0001 ####[facility] [address] [place], [address] SP.GR. DIPSTX Normal 1.002-1.030 [facility] Comment on above: Order Comment: SENT LABEL TO MS3 TO COLLECTCOLLECTOR TO SPECIFY Result Comment: JAYY ENT DISCHARGED Performed By: #### L 400.0001 ####[facility] [address] [place], [address] UR Preservative Normal [facility] Comment on above: Order Comment: SENT LABEL TO MS3 TO COLLECTCOLLECTOR TO SPECIFY Result Comment: JAYY ENT DISCHARGED Performed By: #### L 400.0001 ####[facility] [address] [place], [address] UROBILI Normal Normal [facility] Comment on above: Order Comment: SENT LABEL TO MS3 TO COLLECTCOLLECTOR TO SPECIFY Result Comment: JAYY ENT DISCHARGED Performed By: #### L 400.0001 ####[facility] [address] [place], [address] WBC Normal 0-5 [facility] Comment on above: Order Comment: SENT LABEL TO MS3 TO COLLECTCOLLECTOR TO SPECIFY Result Comment: JAYY ENT DISCHARGED Performed By: #### L 400.0001 ####[facility] [address] [place], [address] CNPTOUTREACHon 07-11-2024 CNPTOUTREACH Normal [facility] Absolute lymphocyte countOrd ered By: Nando Wiggins on 07-09-2024 Lymphocytes Auto (Unsp spec) [#/Vol] 1.88 10*3/uL 0.83-4.51 [facility] Automated lymphocyte count a s percentage of total leukocytesOrdered By: Nando Wiggins on 07-09-2024 Lymphocytes/100 WBC Auto (Unsp spec) 12.0 % Low 19-41 [facility] Basophil percentageOrdered B y: Nando Wiggins on 07-09-2024 Basophils/100 WBC (Bld) 0.2 % 0-1 [facility] Carbon dioxide measurementOr dered By: Nando Wiggins on 07-09-2024 CO2 [Moles/Vol] 29.0 mmol/L 21.0-32.0 [facility] Chloride measurementOrdered By: Nando Wiggins on 07-09-2024 Chloride [Moles/Vol] 89 mmol/L Low 98-107 [facility] Eosinophil percentageOrdered By: Nando Wiggins on 07-09-2024 Eosinophils/100 WBC (Bld) 0.4 % 0-5 [facility] Erythrocyte distribution wid th ratioOrdered By: Nando Wiggins on 07-09-2024 Erythrocyte distribution width (RBC) [Ratio] 16.9 % High 11.6-14.6 [facility] Erythrocyte distribution wid th standard deviationOrdered By: Nando Wiggins on 07-09-2024 Erythrocyte distribution width (RBC) [Ratio] 57.9 fl High 35.1-43.9 [facility] Glomerular filtration rate ( GFR) estimationOrdered By: Nando Wiggins on 07-09-2024 GFR/1.73 sq M.predicted among non-blacks MDRD (S/P/Bld) [Vol rate/Area] 11 mL/min/{1.73_m2} Low >60 [facility] Glucose measurementOrdered B y: Nando Wiggins on 07-09-2024 Glucose [Mass/Vol] 131 mg/dL High 74-106 [facility] Hematocrit Auto (Bld) [Volum e fraction]Ordered By: Nando Wiggins on 07-09-2024 Hematocrit (Bld) [Volume fraction] 26.0 % Low 40-54 [facility] Hemoglobin measurementOrdere d By: Nando Wiggins on 07-09-2024 Hemoglobin (Bld) [Mass/Vol] 7.7 g/dL Low 13.0-16.5 [facility] Immature granulocytes/100 WB C Auto (Bld)Ordered By: Kathiebiancalilian Meeklakshmidesiree on 07-09-2024 Immature granulocytes/100 WBC (Bld) 0.600 % 0.0-0.9 [facility] MCV (mean corpuscular volume ) determinationOrdered By: Kathiebiancalilian Meeklakshmidesiere on 07-09-2024 MCV (RBC) [Entitic vol] 94.9 fL High 80-94 [facility] Mean corpuscular hemoglobin (MCH) determinationOrdered By: Kathiefili Edenlakshmidesiree on 07-09-2024 MCH (RBC) [Entitic mass] 28.1 pg 27.0-32.0 [facility] Monocyte percentageOrdered B y: Nando Wiggins on 07-09-2024 Monocytes/100 WBC (Bld) 7.0 % 0-10 [facility] Neutrophil percentageOrdered By: Nando Wiggins on 07-09-2024 Neutrophils/100 WBC (Bld) 79.8 % High 47-70 [facility] Platelet countOrdered By: Kathie Wiggins on 07-09-2024 Platelets (Bld) [#/Vol] 258 10*3/uL 150-450 [facility] Potassium measurementOrdered By: Kathiebiancalilian Meeklakshmidesiree on 07-09-2024 Potassium [Moles/Vol] 3.6 mmol/L 3.5-5.1 [facility] RBC Auto (Bld) [#/Vol]Ordere d By: Nando Wiggins on 07-09-2024 RBC (Bld) [#/Vol] 2.74 10*6/uL Low 4.6-6.2 [facility] Serum or plasma calcium lilli urement (mass/volume)Ordered By: Kathiebiancasrinathwolf Edenlakshmidesiree on 07-09-2024 Calcium [Mass/Vol] 9.2 mg/dL 8.5-10.1 [facility] Serum or plasma creatinine m easurement (mass/volume)Ordered By: Nando Wiggins on 07-09-2024 Creatinine [Mass/Vol] 5.11 mg/dL High 0.70-1.30 [facility] Serum or plasma urea nitroge n measurement (mass/volume)Ordered By: Nando Wiggins on 07-09-2024 Urea nitrogen [Mass/Vol] 61 mg/dL High 7-18 [facility] Sodium levelOrdered By: Deb quintana Meeklakshmidesiree on 07-09-2024 Sodium [Moles/Vol] 129 mmol/L Low 136-145 [facility] White blood cell (WBC) count Ordered By: Nando Wiggins on 07-09-2024 WBC (Bld) [#/Vol] 15.7 10*3/uL High 4.4-11.0 [facility] 12 Lead EKGon 07-07-2024 12 Lead EKG Normal [facility] Absolute lymphocyte countOrd ered By: Alicia Loo on 07-07-2024 Lymphocytes Auto (Unsp spec) [#/Vol] 1.18 10*3/uL 0.83-4.51 [facility] Automated lymphocyte count a s percentage of total leukocytesOrdered By: Alicia Loo on 07-07-2024 Lymphocytes/100 WBC Auto (Unsp spec) 13.1 % Low 19-41 [facility] Basic Metabolic Profile (BMP )on 07-07-2024 BUN/CRE 11.0 RATIO Normal 10-20 [facility] Comment on above: Order Comment: 'TROP ' Serial specimen #1, #2 or #3: 1 Performed By: #### L 501.4020, L500.2500, L100.0100 ####[facility] [address] [place], [place], [id number] CA,Total 8.5 mg/dL Normal 8.5-10.1 [facility] Comment on above: Order Comment: 'TROP ' Serial specimen #1, #2 or #3: 1 Performed By: #### L 501.4020, L500.2500, L100.0100 ####[facility] [address] [place], [address] Chloride [Moles/Vol] 91 mmol/L Low 98-107 [facility] Comment on above: Order Comment: 'TROP ' Serial specimen #1, #2 or #3: 1 Performed By: #### L 501.4020, L500.2500, L100.0100 ####[facility] [address] [place], [address] CO2 [Moles/Vol] 33.0 mmol/L High 21.0-32.0 [facility] Comment on above: Order Comment: 'TROP ' Serial specimen #1, #2 or #3: 1 Performed By: #### L 501.4020, L500.2500, L100.0100 ####[facility] [address] [place], [address] Creatinine [Mass/Vol] 3.01 mg/dL High 0.70-1.30 [facility] Comment on above: Order Comment: 'TROP ' Serial specimen #1, #2 or #3: 1 Result Comment: The validity of the calculated GFR GFRAA in patients over70 years has not been determined. Clinical correlation isessential. Performed By: #### L 501.4020, L500.2500, L100.0100 ####[facility] [address] [place], [address] ECRCL 19.28 ml/min Normal [facility] Comment on above: Order Comment: 'TROP ' Serial specimen #1, #2 or #3: 1 Performed By: #### L 501.4020, L500.2500, L100.0100 ####[facility] [address] [place], [address] EST GFR - AA 26 mL/min Low >60 [facility] Comment on above: Order Comment: 'TROP ' Serial specimen #1, #2 or #3: 1 Result Comment: Afri can [place] GFR Calc Performed By: #### L 501.4020, L500.2500, L100.0100 ####[facility] [address] [place], [address] GAP 8 Normal 5-15 [facility] Comment on above: Order Comment: 'TROP ' Serial specimen #1, #2 or #3: 1 Performed By: #### L 501.4020, L500.2500, L100.0100 ####[facility] [address] [place], [address] GFR/1.73 sq M.predicted among non-blacks MDRD (S/P/Bld) [Vol rate/Area] 21 mL/min/{1.73_m2} Low >60 [facility] Comment on above: Order Comment: 'TROP ' Serial specimen #1, #2 or #3: 1 Result Comment: Non- GFR Calc Performed By: #### L 501.4020, L500.2500, L100.0100 ####[facility] [address] [place], [address] Glucose [Mass/Vol] 157 mg/dL High 74-106 [facility] Comment on above: Order Comment: 'TROP ' Serial specimen #1, #2 or #3: 1 Result Comment: Fast ing Glucose result greater than or equal to 126 mg/dLsuggests DIABETES MELLITUS per A.D.A. criteria. Performed By: #### L 501.4020, L500.2500, L100.0100 ####[facility] [address] [place], [address] Potassium [Moles/Vol] 3.4 mmol/L Low 3.5-5.1 [facility] Comment on above: Order Comment: 'TROP ' Serial specimen #1, #2 or #3: 1 Performed By: #### L 501.4020, L500.2500, L100.0100 ####[facility] [address] [place], [address] Sodium [Moles/Vol] 132 mmol/L Low 136-145 [facility] Comment on above: Order Comment: 'TROP ' Serial specimen #1, #2 or #3: 1 Performed By: #### L 501.4020, L500.2500, L100.0100 ####[facility] [address] [place], [address] Urea nitrogen [Mass/Vol] 33 mg/dL High 7-18 [facility] Comment on above: Order Comment: 'TROP ' Serial specimen #1, #2 or #3: 1 Performed By: #### L 501.4020, L500.2500, L100.0100 ####[facility] [address] [place], [address] Basophil percentageOrdered B y: Remus Ungur on 07-07-2024 Basophils/100 WBC (Bld) 0.3 % 0-1 [facility] Bilirubin Test strip Ql (U)O rdered By: Remus Ungur on 07-07-2024 Bilirubin Ql (U) 1 mg/dL High Negative [facility] Brain/Head without Contrasto n 07-07-2024 Brain/Head without Contrast Normal [facility] CBC W/Diff, Automatedon 06-23 Absolute Lymph 1.18 X10 3/uL Normal 0.83-4.51 [facility] Comment on above: Performed By: #### L 501.4020, L500.2500, L100.0100 ####[facility] [address] [place], [address] Absolute Neut 6.7 X10 3/uL Normal 2.0-7.7 [facility] Comment on above: Performed By: #### L 501.4020, L500.2500, L100.0100 ####[facility] [address] [place], [address] Basophils/100 WBC (Bld) 0.3 % Normal 0-1 [facility] Comment on above: Performed By: #### L 501.4020, L500.2500, L100.0100 ####[facility] [address] [place], [address] Eosinophils/100 WBC (Bld) 0.1 % Normal 0-5 [facility] Comment on above: Performed By: #### L 501.4020, L500.2500, L100.0100 ####[facility] [address] [place], [address] Erythrocyte distribution width (RBC) [Ratio] 16.6 % High 11.6-14.6 [facility] Comment on above: Performed By: #### L 501.4020, L500.2500, L100.0100 ####[facility] [address] [place], [address] Hematocrit (Bld) [Volume fraction] 27.0 % Low 40-54 [facility] Comment on above: Performed By: #### L 501.4020, L500.2500, L100.0100 ####[facility] [address] [place], [address] Hemoglobin (Bld) [Mass/Vol] 8.1 g/dL Low 13.0-16.5 [facility] Comment on above: Performed By: #### L 501.4020, L500.2500, L100.0100 ####[facility] [address] [place], [address] IG% 0.300 Normal 0.0-0.9 [facility] Comment on above: Result Comment: IG% - Immature Granulocytes (promyelocytes, myelocytes andmetamyelocytes) > 1% indicates that a LEFT SHIFT is Present. Performed By: #### L 501.4020, L500.2500, L100.0100 ####[facility] [address] [place], [address] Lymphocytes/100 WBC (Bld) 13.1 % Low 19-41 [facility] Comment on above: Performed By: #### L 501.4020, L500.2500, L100.0100 ####[facility] [address] [place], [address] MCH (RBC) [Entitic mass] 28.4 pg Normal 27.0-32.0 [facility] Comment on above: Performed By: #### L 501.4020, L500.2500, L100.0100 ####[facility] [address] [place], [address] MCHC (RBC) [Mass/Vol] 30.0 g/dL Low 32-36 [facility] Comment on above: Performed By: #### L 501.4020, L500.2500, L100.0100 ####[facility] [address] [place], [address] MCV (RBC) [Entitic vol] 94.7 fL High 80-94 [facility] Comment on above: Performed By: #### L 501.4020, L500.2500, L100.0100 ####[facility] [address] [place], [address] Monocytes/100 WBC (Bld) 11.4 % High 0-10 [facility] Comment on above: Performed By: #### L 501.4020, L500.2500, L100.0100 ####[facility] [address] [place], [address] Neutrophils/100 WBC (Bld) 74.8 % High 47-70 [facility] Comment on above: Performed By: #### L 501.4020, L500.2500, L100.0100 ####[facility] [address] [place], [address] Nucleated RBC (Bld) [#/Vol] 0 10*3/uL Normal 0-5 [facility] Comment on above: Performed By: #### L 501.4020, L500.2500, L100.0100 ####[facility] [address] [place], [address] Platelet mean volume (Bld) [Entitic vol] 10.7 fL Normal 6.2-12.0 [facility] Comment on above: Performed By: #### L 501.4020, L500.2500, L100.0100 ####[facility] [address] [place], [address] Platelets (Bld) [#/Vol] 211 10*3/uL Normal 150-450 [facility] Comment on above: Performed By: #### L 501.4020, L500.2500, L100.0100 ####[facility] [address] [place], [address] RBC (Bld) [#/Vol] 2.85 10*6/uL Low 4.6-6.2 [facility] Comment on above: Performed By: #### L 501.4020, L500.2500, L100.0100 ####[facility] [address] [place], [address] RDW SD 56.3 fl High 35.1-43.9 [facility] Comment on above: Performed By: #### L 501.4020, L500.2500, L100.0100 ####[facility] [address] [place], [address] WBC (Bld) [#/Vol] 9.0 10*3/uL Normal 4.4-11.0 [facility] Comment on above: Performed By: #### L 501.4020, L500.2500, L100.0100 ####[facility] [address] [place], [address] Carbon dioxide measurementOr dered By: Alicia Loo on 07-07-2024 CO2 [Moles/Vol] 33.0 mmol/L High 21.0-32.0 [facility] Chest 1 View (Portable)on Chest 1 View (Portable) Normal [facility] Chloride measurementOrdered By: Alicia Loo on 07-07-2024 Chloride [Moles/Vol] 91 mmol/L Low 98-107 [facility] Emergency Department Summary on 07-07-2024 Emergency Department Summary Normal [facility] Eosinophil percentageOrdered By: Alicia Loo on 07-07-2024 Eosinophils/100 WBC (Bld) 0.1 % 0-5 [facility] Erythrocyte distribution wid th ratioOrdered By: Alicia Loo on 07-07-2024 Erythrocyte distribution width (RBC) [Ratio] 16.6 % High 11.6-14.6 [facility] Erythrocyte distribution wid th standard deviationOrdered By: Alicia Loo on 07-07-2024 Erythrocyte distribution width (RBC) [Ratio] 56.3 fl High 35.1-43.9 [facility] Glomerular filtration rate ( GFR) estimationOrdered By: Alicia Loo on 07-07-2024 GFR/1.73 sq M.predicted among non-blacks MDRD (S/P/Bld) [Vol rate/Area] 21 mL/min/{1.73_m2} Low >60 [facility] Glucose measurementOrdered B y: Alicia Loo on 07-07-2024 Glucose [Mass/Vol] 157 mg/dL High 74-106 [facility] Hematocrit Auto (Bld) [Volum e fraction]Ordered By: Alicia Loo on 07-07-2024 Hematocrit (Bld) [Volume fraction] 27.0 % Low 40-54 [facility] Hemoglobin measurementOrdere d By: Alicia Loo on 07-07-2024 Hemoglobin (Bld) [Mass/Vol] 8.1 g/dL Low 13.0-16.5 [facility] Immature granulocytes/100 WB C Auto (Bld)Ordered By: Alicia Loo on 07-07-2024 Immature granulocytes/100 WBC (Bld) 0.300 % 0.0-0.9 [facility] Influenza virus A and B and SARS-CoV-2 (COVID-19) and Respiratory syncytial virus RNAOrdered By: Alicia Loo on 07-07-2024 SARS-CoV-2 (COVID-19) RNA EZEKIEL+probe Ql (Unsp spec) [facility] Ketones Test strip Ql (U)Ord ered By: Kaeus Eze on 07-07-2024 Ketones Ql (U) 5 mg/dl High Negative [facility] L501.4020on 07-07-2024 TROPONIN-I HS 62 pg/mL Normal 3.0-78.0 [facility] Comment on above: Order Comment: 'TROP ' Serial specimen #1, #2 or #3: 1 Result Comment: Plea se Note: New Test Units and Gender Specific Reference Ranges. For more information see Policy Stat Procedure [place] High Sensitivity Troponin (TNIH) and attachments. Performed By: #### L 501.4020, L500.2500, L100.0100 ####[facility] [address] [place], [address] M100.678on 07-07-2024 M100.678 Pending SARS-CoV-2 (COVID 19) Negative INFLUENZA A Negative INFLUENZA B Negative RSV PCR Negative Normal [facility] Comment on above: Performed By: #### M 100.678 ####[facility] [address] [place], [address] MCV (mean corpuscular volume ) determinationOrdered By: Alicia Loo on 07-07-2024 MCV (RBC) [Entitic vol] 94.7 fL High 80-94 [facility] Mean corpuscular hemoglobin (MCH) determinationOrdered By: Alicia Loo on 07-07-2024 MCH (RBC) [Entitic mass] 28.4 pg 27.0-32.0 [facility] Monocyte percentageOrdered B y: Remus Ungvaughn on 07-07-2024 Monocytes/100 WBC (Bld) 11.4 % High 0-10 [facility] Mucus LM Ql (Urine sed)Order ed By: Remus Eze on 07-07-2024 Mucus Ql (Urine sed) 0 SEEN /hpf [facility] Neutrophil percentageOrdered By: Remus Eze on 07-07-2024 Neutrophils/100 WBC (Bld) 74.8 % High 47-70 [facility] Nitrite Test strip Ql (U)Ord ered By: Alicia Loo on 07-07-2024 Nitrite Ql (U) Negative Negative [facility] Platelet countOrdered By: Chucky Loo on 07-07-2024 Platelets (Bld) [#/Vol] 211 10*3/uL 150-450 [facility] Potassium measurementOrdered By: Alicia Loo on 07-07-2024 Potassium [Moles/Vol] 3.4 mmol/L Low 3.5-5.1 [facility] Protein Test strip Ql (U)Ord ered By: Alicia Loo on 07-07-2024 Protein Ql (U) 100 mg/dl High Negative [facility] RBC Auto (Bld) [#/Vol]Ordere d By: Alicia Loo on 07-07-2024 RBC (Bld) [#/Vol] 2.85 10*6/uL Low 4.6-6.2 [facility] Serum or plasma calcium lilli urement (mass/volume)Ordered By: Alicia Loo on 07-07-2024 Calcium [Mass/Vol] 8.5 mg/dL 8.5-10.1 [facility] Serum or plasma creatinine m easurement (mass/volume)Ordered By: Alicia Loo on 07-07-2024 Creatinine [Mass/Vol] 3.01 mg/dL High 0.70-1.30 [facility] Serum or plasma urea nitroge n measurement (mass/volume)Ordered By: Alicia Loo on 07-07-2024 Urea nitrogen [Mass/Vol] 33 mg/dL High 7-18 [facility] Sodium levelOrdered By: Michael Loo on 07-07-2024 Sodium [Moles/Vol] 132 mmol/L Low 136-145 [facility] Squamous epithelial cells de tection in urine sediment by light microscopyOrdered By: Alicia Loo on 07-07-2024 Epithelial cells.squamous LM Ql (Urine sed) 0 SEEN /hpf 0-5 [facility] Troponin IOrdered By: Alicia Loo on 07-07-2024 Troponin I 62 pg/mL 3.0-78.0 [facility] Urinalysis, Completeon 07-07 RBC 0 SEEN Normal 0-5 [facility] Comment on above: Order Comment: COLOR OF URINE MAY AFFECT DIPSTICK RESULTS.CLEAN CATCH Performed By: #### L 400.0001 ####[facility] [address] [place], [address] WBC 0-5 SEEN Normal 0-5 [facility] Comment on above: Order Comment: COLOR OF URINE MAY AFFECT DIPSTICK RESULTS.CLEAN CATCH Performed By: #### L 400.0001 ####[facility] [address] [place], [address] BACTERIA 0 SEEN Normal None Seen [facility] Comment on above: Order Comment: COLOR OF URINE MAY AFFECT DIPSTICK RESULTS.CLEAN CATCH Performed By: #### L 400.0001 ####[facility] [address] [place], [address] EPI,SQUAMOUS 0 SEEN Normal 0-5 [facility] Comment on above: Order Comment: COLOR OF URINE MAY AFFECT DIPSTICK RESULTS.CLEAN CATCH Performed By: #### L 400.0001 ####[facility] [address] [place], [address] Mucus Ql (Urine sed) 0 SEEN Normal [facility] Comment on above: Order Comment: COLOR OF URINE MAY AFFECT DIPSTICK RESULTS.CLEAN CATCH Performed By: #### L 400.0001 ####[facility] [address] [place], [address] Urine clarityOrdered By: Kae Loo on 07-07-2024 Clarity (U) Clear Clear [facility] Urine color determinationOrd ered By: Alicia Loo on 07-07-2024 Color (U) Lilia Yellow [facility] Urine glucose detectionOrder ed By: Alicia Loo on 07-07-2024 Glucose Ql (U) 50 mg/dl High Normal [facility] Urine leukocyte esterase det ection by dipstickOrdered By: Alicia Loo on 07-07-2024 Leukocyte esterase Test strip Ql (U) 25 /ul High Negative [facility] Urine pHOrdered By: Alicia minar on 07-07-2024 pH (U) 5.0 [pH] 5.0 - 8.0 [facility] Urine sediment bacteria coun t by microscopy (number/high power field)Ordered By: Alicia Loo on 07-07-2024 Bacteria LM.HPF (Urine sed) [#/Area] 0 /[HPF] None Seen [facility] Urine specific gravity measu rementOrdered By: [facility] L[facility] on 07-07-2024 Specific gravity (U) [Rel density] 1.015 1.002-1.030 [facility] Urine urobilinogen measureme ntOrdered By: [facility] Loo on 07-07-2024 Urobilinogen Ql (U) Normal mg/dl Normal [facility] White blood cell (WBC) count Ordered By: [facility] Loo on 07-07-2024 WBC (Bld) [#/Vol] 9.0 10*3/uL 4.4-11.0 [facility] White blood cell countOrdere d By: Alicia Loo on 07-07-2024 White blood cell count 0-5 SEEN /hpf 0-5 [facility] Bedside Glucoseon 07-04-2024 FINGERSTICK GLU 114 mg/dL High 74-106 [facility] Comment on above: Result Comment: FANG VAZQUEZ OF PATIENT CARE PER NURSING PROTOCOL Performed By: #### L 501.080 ####[facility] [address] [place], [address] [facility] deOrdered By: Des Ruelas on 07-04-2024 Glucose [Mass/Vol] 114 mg/dL High 74-106 [facility] Absolute lymphocyte countOrd ered By: Eric Franklin on 07-03-2024 Lymphocytes Auto (Unsp spec) [#/Vol] 1.08 10*3/uL 0.83-4.51 [facility] Automated blood erythrocyte countOrdered By: Eric Franklin on 07-03-2024 RBC (Bld) [#/Vol] 2.75 10*6/uL Low 4.6-6.2 [facility] Comment on above: Performed By: #### L 500.4050, L100.0100 ####[facility] [address] [place], [address] Automated blood hematocrit ( percentage)Ordered By: Eric Franklin on 07-03-2024 Hematocrit (Bld) [Volume fraction] 25.7 % Low 40-54 [facility] Comment on above: Performed By: #### L 500.4050, L100.0100 ####[facility] [address] [place], [address] Automated lymphocyte count a s percentage of total leukocytesOrdered By: Eric Franklin on 07-03-2024 Lymphocytes/100 WBC Auto (Unsp spec) 12.6 % Low 19-41 [facility] Basophil percentageOrdered B y: Eric Franklin on 07-03-2024 Basophils/100 WBC (Bld) 0.2 % Normal 0-1 [facility] Comment on above: Performed By: #### L 500.4050, L100.0100 ####[facility] [address] [place], [address] Bilirubin, totalOrdered By: Eric Franklin on 07-03-2024 Bilirubin [Mass/Vol] 0.60 mg/dL Normal 0.20-1.00 [facility] Comment on above: Result Comment: For patients on eltrombopag therapy, use of [place] TBIL is not recommended. Performed By: #### L 500.4050, L100.0100 ####[facility] [address] [place], [address] CBC W/Diff, Automatedon 06-23 Absolute Lymph 1.08 X10 3/uL Normal 0.83-4.51 [facility] Comment on above: Performed By: #### L 500.4050, L100.0100 ####[facility] [address] [place], [address] Absolute Neut 6.2 X10 3/uL Normal 2.0-7.7 [facility] Comment on above: Performed By: #### L 500.4050, L100.0100 ####[facility] [address] [place], [address] IG% 0.700 Normal 0.0-0.9 [facility] Comment on above: Result Comment: IG% - Immature Granulocytes (promyelocytes, myelocytes andmetamyelocytes) > 1% indicates that a LEFT SHIFT is Present. Performed By: #### L 500.4050, L100.0100 ####[facility] [address] [place], [address] Lymphocytes/100 WBC (Bld) 12.6 % Low 19-41 [facility] Comment on above: Performed By: #### L 500.4050, L100.0100 ####[facility] [address] [place], [address] MCHC (RBC) [Mass/Vol] 31.5 g/dL Low 32-36 [facility] Comment on above: Performed By: #### L 500.4050, L100.0100 ####[facility] [address] [place], [address] Nucleated RBC (Bld) [#/Vol] 0 10*3/uL Normal 0-5 [facility] Comment on above: Performed By: #### L 500.4050, L100.0100 ####[facility] [address] [place], [address] Platelet mean volume (Bld) [Entitic vol] 11.1 fL Normal 6.2-12.0 [facility] Comment on above: Performed By: #### L 500.4050, L100.0100 ####[facility] [address] [place], [address] RDW SD 56.7 fl High 35.1-43.9 [facility] Comment on above: Performed By: #### L 500.4050, L100.0100 ####[facility] [address] [place], [address] Carbon dioxide measurementOr dered By: Eric Franklin on 07-03-2024 CO2 [Moles/Vol] 27.0 mmol/L Normal 21.0-32.0 [facility] Comment on above: Performed By: #### L 500.4050, L100.0100 ####[facility] [address] [place], [address] Chloride measurementOrdered By: Eric Franklin on 07-03-2024 Chloride [Moles/Vol] 96 mmol/L Low 98-107 [facility] Comment on above: Performed By: #### L 500.4050, L100.0100 ####[facility] [address] [place], [address] Comprehensive Metabolic Prof ilon 07-03-2024 Albumin/Globulin [Mass ratio] 0.5 {ratio} Low 0.9-2.4 [facility] Comment on above: Performed By: #### L 500.4050, L100.0100 ####[facility] [address] [place], [address] ALK P 63 U/L Normal 45-117 [facility] Comment on above: Performed By: #### L 500.4050, L100.0100 ####[facility] [address] [place], [address] AST [Catalytic activity/Vol] 26 U/L Normal 15-37 [facility] Comment on above: Result Comment: Mode rate Hemolysis, Result may be falsely increased. Performed By: #### L 500.4050, L100.0100 ####[facility] [address] [place], [address] BUN/CRE 12.2 RATIO Normal 10-20 [facility] Comment on above: Performed By: #### L 500.4050, L100.0100 ####[facility] [address], [address] CA,Total 8.1 mg/dL Low 8.5-10.1 [facility] Comment on above: Performed By: #### L 500.4050, L100.0100 ####[facility] [address] [place], [address] ECRCL 20.19 ml/min Normal [facility] Comment on above: Performed By: #### L 500.4050, L100.0100 ####[facility] [address] [place], [address] EST GFR - AA 25 mL/min Low >60 [facility] Comment on above: Result Comment: Afri can [place] GFR Calc Performed By: #### L 500.4050, L100.0100 ####[facility] [address] [place], [address] GAP 11 Normal 5-15 [facility] Comment on above: Performed By: #### L 500.4050, L100.0100 ####[facility] [address] [place], [address] T PROT 7.1 g/dL Normal 6.4-8.2 [facility] Comment on above: Performed By: #### L 500.4050, L100.0100 ####[facility] [address] [place], [address] Emergency Department Summary on 07-03-2024 Emergency Department Summary Normal [facility] Eosinophil percentageOrdered By: Eric Franklin on 07-03-2024 Eosinophils/100 WBC (Bld) 0.3 % Normal 0-5 [facility] Comment on above: Performed By: #### L 500.4050, L100.0100 ####[facility] [address] [place], [address] Erythrocyte distribution wid th ratioOrdered By: Eric Franklin on 07-03-2024 Erythrocyte distribution width (RBC) [Ratio] 17.2 % High 11.6-14.6 [facility] Comment on above: Performed By: #### L 500.4050, L100.0100 ####[facility] [address] [place], [address] Erythrocyte distribution wid th standard deviationOrdered By: Eric Franklin on 07-03-2024 Erythrocyte distribution width (RBC) [Ratio] 56.7 fl High 35.1-43.9 [facility] Glomerular filtration rate ( GFR) estimationOrdered By: Eric Franklin on 07-03-2024 GFR/1.73 sq M.predicted among non-blacks MDRD (S/P/Bld) [Vol rate/Area] 21 mL/min/{1.73_m2} Low >60 [facility] Comment on above: Result Comment: Non- GFR Calc Performed By: #### L 500.4050, L100.0100 ####[facility] [address] [place], [address] Glucose measurementOrdered B y: Eric Franklin on 07-03-2024 Glucose [Mass/Vol] 161 mg/dL High 74-106 [facility] Comment on above: Result Comment: Fast ing Glucose result greater than or equal to 126 mg/dLsuggests DIABETES MELLITUS per A.D.A. criteria. Performed By: #### L 500.4050, L100.0100 ####[facility] [address] [place], [address] Hemoglobin measurementOrdere d By: Eric Franklin on 07-03-2024 Hemoglobin (Bld) [Mass/Vol] 8.1 g/dL Low 13.0-16.5 [facility] Comment on above: Performed By: #### L 500.4050, L100.0100 ####[facility] [address] [place], [address] Immature granulocytes/100 WB C Auto (Bld)Ordered By: Eric Franklin on 07-03-2024 Immature granulocytes/100 WBC (Bld) 0.700 % 0.0-0.9 [facility] MCV (mean corpuscular volume ) determinationOrdered By: Eric Franklin on 07-03-2024 MCV (RBC) [Entitic vol] 93.5 fL Normal 80-94 [facility] Comment on above: Performed By: #### L 500.4050, L100.0100 ####[facility] [address] [place], [address] Mean corpuscular hemoglobin (MCH) determinationOrdered By: Eric Franklin on 07-03-2024 MCH (RBC) [Entitic mass] 29.5 pg Normal 27.0-32.0 [facility] Comment on above: Performed By: #### L 500.4050, L100.0100 ####[facility] [address] [place], [address] Monocyte percentageOrdered B y: Eric Franklin on 07-03-2024 Monocytes/100 WBC (Bld) 14.5 % High 0-10 [facility] Comment on above: Performed By: #### L 500.4050, L100.0100 ####[facility] [address] [place], [address] Neutrophil percentageOrdered By: Eric Franklin on 07-03-2024 Neutrophils/100 WBC (Bld) 71.7 % High 47-70 [facility] Comment on above: Performed By: #### L 500.4050, L100.0100 ####[facility] [address] [place], [address] No Panel InformationOrdered By: Eric Franklin on 07-03-2024 26 U/L 15-37 [facility] Platelet countOrdered By: Ug jorge Franklin on 07-03-2024 Platelets (Bld) [#/Vol] 194 10*3/uL Normal 150-450 [facility] Comment on above: Performed By: #### L 500.4050, L100.0100 ####[facility] [address] [place], [address] Potassium measurementOrdered By: Eric Franklin on 07-03-2024 Potassium [Moles/Vol] 4.2 mmol/L Normal 3.5-5.1 [facility] Comment on above: Result Comment: Mode rate Hemolysis, Result may be falsely increased. Performed By: #### L 500.4050, L100.0100 ####[facility] [address] [place], [address] Serum globulin measurementOr dered By: Eric Franklin on 07-03-2024 Globulin (S) [Mass/Vol] 4.7 g/dL High 2.2-4.2 [facility] Comment on above: Performed By: #### L 500.4050, L100.0100 ####[facility] [address] [place], [address] Serum or plasma alanine hawkins otransferase (ALT) measurementOrdered By: Eric Franklin on 07-03-2024 ALT [Catalytic activity/Vol] 13 U/L Low 16-61 [facility] Comment on above: Performed By: #### L 500.4050, L100.0100 ####[facility] [address] [place], [address] Serum or plasma albumin lilli urement (mass/volume)Ordered By: Eric Franklin on 07-03-2024 Albumin [Mass/Vol] 2.4 g/dL Low 3.2-5.0 [facility] Comment on above: Performed By: #### L 500.4050, L100.0100 ####[facility] [address] [place], [address] Serum or plasma alkaline penelope sphatase measurementOrdered By: Eric Franklin on 07-03-2024 ALP [Catalytic activity/Vol] 63 U/L 45-117 [facility] Serum or plasma calcium lilli urement (mass/volume)Ordered By: Eric Franklin on 07-03-2024 Calcium [Mass/Vol] 8.1 mg/dL Low 8.5-10.1 [facility] Serum or plasma creatinine m easurement (mass/volume)Ordered By: Eric Franklin on 07-03-2024 Creatinine [Mass/Vol] 3.04 mg/dL High 0.70-1.30 [facility] Comment on above: Result Comment: The validity of the calculated GFR GFRAA in patients over70 years has not been determined. Clinical correlation isessential. Performed By: #### L 500.4050, L100.0100 ####[facility] [address] [place], [address] Serum or plasma urea nitroge n measurement (mass/volume)Ordered By: Ericjorge Franklin on 07-03-2024 Urea nitrogen [Mass/Vol] 37 mg/dL High 7-18 [facility] Comment on above: Performed By: #### L 500.4050, L100.0100 ####[facility] [address] [place], [address] Sodium levelOrdered By: Eric Franklin on 07-03-2024 Sodium [Moles/Vol] 134 mmol/L Low 136-145 [facility] Comment on above: Performed By: #### L 500.4050, L100.0100 ####[facility] [address] [place], [address] Total proteinOrdered By: Ericjorge Franklin on 07-03-2024 Protein [Mass/Vol] 7.1 g/dL 6.4-8.2 [facility] White blood cell (WBC) count Ordered By: Ericjorge Franklin on 07-03-2024 WBC (Bld) [#/Vol] 8.6 10*3/uL Normal 4.4-11.0 [facility] Comment on above: Performed By: #### L 500.4050, L100.0100 ####[facility] [address] [place], [address] 12 Lead EKGon 07-02-2024 12 Lead EKG Normal [facility] Absolute lymphocyte countOrd ered By: Nando Wiggins on 07-02-2024 Lymphocytes Auto (Unsp spec) [#/Vol] 1.88 10*3/uL 0.83-4.51 [facility] Automated lymphocyte count a s percentage of total leukocytesOrdered By: Brianwolf Rosalie on 07-02-2024 Lymphocytes/100 WBC Auto (Unsp spec) 20.3 % 19-41 [facility] Basic Metabolic Profile (BMP )on 07-02-2024 BUN/CRE 18.1 RATIO Normal 10-20 [facility] Comment on above: Performed By: #### L 500.2500 ####[facility] [address] [place], [address] CA,Total 9.1 mg/dL Normal 8.5-10.1 [facility] Comment on above: Performed By: #### L 500.2500 ####[facility] [address] [place], [address] Chloride [Moles/Vol] 98 mmol/L Normal 98-107 [facility] Comment on above: Performed By: #### L 500.2500 ####[facility] [address] [place], [address] CO2 [Moles/Vol] 26.0 mmol/L Normal 21.0-32.0 [facility] Comment on above: Performed By: #### L 500.2500 ####[facility] [address] [place], [address] Creatinine [Mass/Vol] 4.63 mg/dL High 0.70-1.30 [facility] Comment on above: Result Comment: The validity of the calculated GFR GFRAA in patients over70 years has not been determined. Clinical correlation isessential. Performed By: #### L 500.2500 ####[facility] [address] [place], [address] ECRCL 12.30 ml/min Normal [facility] Comment on above: Performed By: #### L 500.2500 ####[facility] [address] [place], [address] EST GFR - AA 16 mL/min Low >60 [facility] Comment on above: Result Comment: Afri can [place] GFR Calc Performed By: #### L 500.2500 ####[facility] [address] [place], [address] GAP 9 Normal 5-15 [facility] Comment on above: Performed By: #### L 500.2500 ####[facility] [address] [place], [address] GFR/1.73 sq M.predicted among non-blacks MDRD (S/P/Bld) [Vol rate/Area] 13 mL/min/{1.73_m2} Low >60 [facility] Comment on above: Result Comment: Non- GFR Calc Performed By: #### L 500.2500 ####[facility] [address] [place], [address] Glucose [Mass/Vol] 134 mg/dL High 74-106 [facility] Comment on above: Result Comment: Fast ing Glucose result greater than or equal to 126 mg/dLsuggests DIABETES MELLITUS per A.D.A. criteria. Performed By: #### L 500.2500 ####[facility] [address] [place], [address] Potassium [Moles/Vol] 4.3 mmol/L Normal 3.5-5.1 [facility] Comment on above: Performed By: #### L 500.2500 ####[facility] [address] [place], [address] Sodium [Moles/Vol] 133 mmol/L Low 136-145 [facility] Comment on above: Performed By: #### L 500.2500 ####[facility] [address] [place], [address] Urea nitrogen [Mass/Vol] 84 mg/dL High 7-18 [facility] Comment on above: Performed By: #### L 500.2500 ####[facility] [address] [place], [address] Basophil percentageOrdered B y: Nando Wiggins on 07-02-2024 Basophils/100 WBC (Bld) 0.3 % 0-1 [facility] Bedside Glucoseon 07-02-2024 FINGERSTICK GLU 230 mg/dL High 74-106 [facility] Comment on above: Result Comment: FANG VAZQUEZ OF PATIENT CARE PER NURSING PROTOCOL Performed By: #### L 501.080 ####[facility] [address] [place], [place], [address] Carbon dioxide measurementOr dered By: Fernando Oliveros on 07-02-2024 CO2 [Moles/Vol] 26.0 mmol/L 21.0-32.0 [facility] Carbon dioxide measurementOr dered By: Nando Wiggins on 07-02-2024 CO2 [Moles/Vol] 25.0 mmol/L 21.0-32.0 [facility] Chloride measurementOrdered By: Fernando Oliveros on 07-02-2024 Chloride [Moles/Vol] 98 mmol/L 98-107 [facility] Chloride measurementOrdered By: Nando Wiggins on 07-02-2024 Chloride [Moles/Vol] 96 mmol/L Low 98-107 [facility] Emergency Department Summary on 07-02-2024 Emergency Department Summary Normal [facility] Eosinophil percentageOrdered By: Nando Wiggins on 07-02-2024 Eosinophils/100 WBC (Bld) 3.0 % 0-5 [facility] Erythrocyte distribution wid th ratioOrdered By: Nando Wiggins on 07-02-2024 Erythrocyte distribution width (RBC) [Ratio] 17.2 % High 11.6-14.6 [facility] Erythrocyte distribution wid th standard deviationOrdered By: Nando Wiggins on 07-02-2024 Erythrocyte distribution width (RBC) [Ratio] 58.0 fl High 35.1-43.9 [facility] Glomerular filtration rate ( GFR) estimationOrdered By: Fernando Oliveros on 07-02-2024 GFR/1.73 sq M.predicted among non-blacks MDRD (S/P/Bld) [Vol rate/Area] 13 mL/min/{1.73_m2} Low >60 [facility] Glomerular filtration rate ( GFR) estimationOrdered By: Nando Wiggins on 07-02-2024 GFR/1.73 sq M.predicted among non-blacks MDRD (S/P/Bld) [Vol rate/Area] 8 mL/min/{1.73_m2} Low >60 [facility] Glucose measurementOrdered B y: Fernando Oliveros on 07-02-2024 Glucose [Mass/Vol] 134 mg/dL High 74-106 [facility] Glucose measurementOrdered B y: Nando Wiggins on 07-02-2024 Glucose [Mass/Vol] 134 mg/dL High 74-106 [facility] Glucose measurement at [facility] deOrdered By: Fernando Oliveros on 07-02-2024 Glucose [Mass/Vol] 230 mg/dL High 74-106 [facility] H AND P Exam - Hospitaliston 07-02-2024 H&P Exam - Hospitalist Normal [facility] Hematocrit Auto (Bld) [Volum e fraction]Ordered By: Nando Wiggins on 07-02-2024 Hematocrit (Bld) [Volume fraction] 25.7 % Low 40-54 [facility] Hemoglobin measurementOrdere d By: Nando Wiggins on 07-02-2024 Hemoglobin (Bld) [Mass/Vol] 8.0 g/dL Low 13.0-16.5 [facility] Immature granulocytes/100 WB C Auto (Bld)Ordered By: Nando Wiggins on 07-02-2024 Immature granulocytes/100 WBC (Bld) 0.500 % 0.0-0.9 [facility] MCV (mean corpuscular volume ) determinationOrdered By: Nando Wiggins on 07-02-2024 MCV (RBC) [Entitic vol] 96.3 fL High 80-94 [facility] Mean corpuscular hemoglobin (MCH) determinationOrdered By: Nando Wiggins on 07-02-2024 MCH (RBC) [Entitic mass] 30.0 pg 27.0-32.0 [facility] Monocyte percentageOrdered B y: Nando Wiggins on 07-02-2024 Monocytes/100 WBC (Bld) 11.7 % High 0-10 [facility] Neutrophil percentageOrdered By: Effili Wiggins on 07-02-2024 Neutrophils/100 WBC (Bld) 64.2 % 47-70 [facility] Platelet countOrdered By: Kathie biancalilian Wiggins on 07-02-2024 Platelets (Bld) [#/Vol] 198 10*3/uL 150-450 [facility] Potassium measurementOrdered By: Fernando Oliveros on 07-02-2024 Potassium [Moles/Vol] 4.3 mmol/L 3.5-5.1 [facility] Potassium measurementOrdered By: Nando Wiggins on 07-02-2024 Potassium [Moles/Vol] 5.9 mmol/L High 3.5-5.1 [facility] RBC Auto (Bld) [#/Vol]Ordere d By: Nando Wiggins on 07-02-2024 RBC (Bld) [#/Vol] 2.67 10*6/uL Low 4.6-6.2 [facility] Serum or plasma calcium lilli urement (mass/volume)Ordered By: Fernando Oliveros on 07-02-2024 Calcium [Mass/Vol] 9.1 mg/dL 8.5-10.1 [facility] Serum or plasma calcium lilli urement (mass/volume)Ordered By: Nando Wiggins on 07-02-2024 Calcium [Mass/Vol] 8.1 mg/dL Low 8.5-10.1 [facility] Serum or plasma creatinine m easurement (mass/volume)Ordered By: Fernando Oliveros on 07-02-2024 Creatinine [Mass/Vol] 4.63 mg/dL High 0.70-1.30 [facility] Serum or plasma creatinine m easurement (mass/volume)Ordered By: Nando Wiggins on 07-02-2024 Creatinine [Mass/Vol] 7.24 mg/dL High 0.70-1.30 [facility] Serum or plasma urea nitroge n measurement (mass/volume)Ordered By: Fernando Oliveros on 07-02-2024 Urea nitrogen [Mass/Vol] 84 mg/dL High 7-18 [facility] Serum or plasma urea nitroge n measurement (mass/volume)Ordered By: Nando Wiggins on 07-02-2024 Urea nitrogen [Mass/Vol] 126 mg/dL High 7-18 [facility] Sodium levelOrdered By: Fernando Oliveros on 07-02-2024 Sodium [Moles/Vol] 133 mmol/L Low 136-145 [facility] Sodium levelOrdered By: Deb Wiggins on 07-02-2024 Sodium [Moles/Vol] 130 mmol/L Low 136-145 [facility] White blood cell (WBC) count Ordered By: Nando Wiggins on 07-02-2024 WBC (Bld) [#/Vol] 9.3 10*3/uL 4.4-11.0 [facility] Absolute lymphocyte countOrd ered By: Nando Wiggins on 06-25-2024 Lymphocytes Auto (Unsp spec) [#/Vol] 2.51 10*3/uL 0.83-4.51 [facility] Automated lymphocyte count a s percentage of total leukocytesOrdered By: Nando Wiggins on 06-25-2024 Lymphocytes/100 WBC Auto (Unsp spec) 29.7 % 19-41 [facility] Basophil percentageOrdered B y: Nando Wiggins on 06-25-2024 Basophils/100 WBC (Bld) 0.6 % 0-1 [facility] Carbon dioxide measurementOr dered By: Nando Wiggins on 06-25-2024 CO2 [Moles/Vol] 27.0 mmol/L 21.0-32.0 [facility] Chloride measurementOrdered By: Nando Wiggins on 06-25-2024 Chloride [Moles/Vol] 96 mmol/L Low 98-107 [facility] Eosinophil percentageOrdered By: Nando Wiggins on 06-25-2024 Eosinophils/100 WBC (Bld) 3.5 % 0-5 [facility] Erythrocyte distribution wid th ratioOrdered By: Nando Wiggins on 06-25-2024 Erythrocyte distribution width (RBC) [Ratio] 15.1 % High 11.6-14.6 [facility] Erythrocyte distribution wid th standard deviationOrdered By: Nando Wiggins on 06-25-2024 Erythrocyte distribution width (RBC) [Ratio] 52.1 fl High 35.1-43.9 [facility] Glomerular filtration rate ( GFR) estimationOrdered By: Nando Wiggins on 06-25-2024 GFR/1.73 sq M.predicted among non-blacks MDRD (S/P/Bld) [Vol rate/Area] 11 mL/min/{1.73_m2} Low >60 [facility] Glucose measurementOrdered B y: Nando Wiggins on 06-25-2024 Glucose [Mass/Vol] 136 mg/dL High 74-106 [facility] Hematocrit Auto (Bld) [Volum e fraction]Ordered By: Nando Wiggins 06-25-2024 Hematocrit (Bld) [Volume fraction] 27.3 % Low 40-54 [facility] Hemoglobin measurementOrdere d By: Nando Wiggins on 06-25-2024 Hemoglobin (Bld) [Mass/Vol] 8.0 g/dL Low 13.0-16.5 [facility] Immature granulocytes/100 WB C Auto (Bld)Ordered By: Nando Wiggins on 06-25-2024 Immature granulocytes/100 WBC (Bld) 1.500 % High 0.0-0.9 [facility] MCV (mean corpuscular volume ) determinationOrdered By: Nando Wiggins on 06-25-2024 MCV (RBC) [Entitic vol] 95.5 fL High 80-94 [facility] Mean corpuscular hemoglobin (MCH) determinationOrdered By: Nando Wiggins 06-25-2024 MCH (RBC) [Entitic mass] 28.0 pg 27.0-32.0 [facility] Monocyte percentageOrdered B y: Nando Wiggins on 06-25-2024 Monocytes/100 WBC (Bld) 8.3 % 0-10 [facility] Neutrophil percentageOrdered By: Nando Meeklakshmidesiree on 06-25-2024 Neutrophils/100 WBC (Bld) 56.4 % 47-70 [facility] Platelet countOrdered By: Kathie fili Meeklakshmidesiree on 06-25-2024 Platelets (Bld) [#/Vol] 210 10*3/uL 150-450 [facility] Potassium measurementOrdered By: Kathiebiancasrinathwolf Edenlakshmidesiree on 06-25-2024 Potassium [Moles/Vol] 4.2 mmol/L 3.5-5.1 [facility] RBC Auto (Bld) [#/Vol]Ordere d By: Nando Meekcheko on 06-25-2024 RBC (Bld) [#/Vol] 2.86 10*6/uL Low 4.6-6.2 [facility] Serum or plasma calcium lilli urement (mass/volume)Ordered By: Nando Edenlakshmidesiree on 06-25-2024 Calcium [Mass/Vol] 9.0 mg/dL 8.5-10.1 [facility] Serum or plasma creatinine m easurement (mass/volume)Ordered By: Kathiebiancasrinathwolf Edenlakshmidesiree on 06-25-2024 Creatinine [Mass/Vol] 5.23 mg/dL High 0.70-1.30 [facility] Serum or plasma urea nitroge n measurement (mass/volume)Ordered By: Nando Edenlakshmidesiree on 06-25-2024 Urea nitrogen [Mass/Vol] 72 mg/dL High 7-18 [facility] Sodium levelOrdered By: Deb lilian Meeklakshmidesiree on 06-25-2024 Sodium [Moles/Vol] 134 mmol/L Low 136-145 [facility] White blood cell (WBC) count Ordered By: Nando Edenlakshmidesiree on 06-25-2024 WBC (Bld) [#/Vol] 8.5 10*3/uL 4.4-11.0 [facility] MR/BMS.BVSon 06-20-2024 MR/BMS.BVS Normal [facility] Absolute lymphocyte countOrd ered By: Nando Wiggins on 06-18-2024 Lymphocytes Auto (Unsp spec) [#/Vol] 2.74 10*3/uL 0.83-4.51 [facility] Automated lymphocyte count a s percentage of total leukocytesOrdered By: Nando Wiggins on 06-18-2024 Lymphocytes/100 WBC Auto (Unsp spec) 31.0 % 19-41 [facility] Basophil percentageOrdered B y: Nando Wiggins on 06-18-2024 Basophils/100 WBC (Bld) 0.6 % 0-1 [facility] Carbon dioxide measurementOr dered By: Nando Wiggins on 06-18-2024 CO2 [Moles/Vol] 32.0 mmol/L 21.0-32.0 [facility] Chloride measurementOrdered By: Nando Wiggins on 06-18-2024 Chloride [Moles/Vol] 95 mmol/L Low 98-107 [facility] Eosinophil percentageOrdered By: Nando Wiggins on 06-18-2024 Eosinophils/100 WBC (Bld) 3.1 % 0-5 [facility] Erythrocyte distribution wid th ratioOrdered By: Nando Wiggins on 06-18-2024 Erythrocyte distribution width (RBC) [Ratio] 14.6 % 11.6-14.6 [facility] Erythrocyte distribution wid th standard deviationOrdered By: Nando Wiggins on 06-18-2024 Erythrocyte distribution width (RBC) [Ratio] 50.6 fl High 35.1-43.9 [facility] Glomerular filtration rate ( GFR) estimationOrdered By: Nando Wiggins on 06-18-2024 GFR/1.73 sq M.predicted among non-blacks MDRD (S/P/Bld) [Vol rate/Area] 12 mL/min/{1.73_m2} Low >60 [facility] Glucose measurementOrdered B y: Nando Wiggins on 06-18-2024 Glucose [Mass/Vol] 81 mg/dL 74-106 [facility] Hematocrit Auto (Bld) [Volum e fraction]Ordered By: Nando Wiggins on 06-18-2024 Hematocrit (Bld) [Volume fraction] 28.6 % Low 40-54 [facility] Hemoglobin measurementOrdere d By: Nando Wiggins on 06-18-2024 Hemoglobin (Bld) [Mass/Vol] 8.4 g/dL Low 13.0-16.5 [facility] Immature granulocytes/100 WB C Auto (Bld)Ordered By: Nando Wiggins on 06-18-2024 Immature granulocytes/100 WBC (Bld) 0.300 % 0.0-0.9 [facility] MCV (mean corpuscular volume ) determinationOrdered By: Nando Wiggins on 06-18-2024 MCV (RBC) [Entitic vol] 95.0 fL High 80-94 [facility] Mean corpuscular hemoglobin (MCH) determinationOrdered By: Nando iWggins on 06-18-2024 MCH (RBC) [Entitic mass] 27.9 pg 27.0-32.0 [facility] Monocyte percentageOrdered B y: Nando Wiggins on 06-18-2024 Monocytes/100 WBC (Bld) 8.3 % 0-10 [facility] Neutrophil percentageOrdered By: Nando Wiggins on 06-18-2024 Neutrophils/100 WBC (Bld) 56.7 % 47-70 [facility] Platelet countOrdered By: Kathie Wiggins on 06-18-2024 Platelets (Bld) [#/Vol] 301 10*3/uL 150-450 [facility] Potassium measurementOrdered By: Nando Wiggins on 06-18-2024 Potassium [Moles/Vol] 4.7 mmol/L 3.5-5.1 [facility] RBC Auto (Bld) [#/Vol]Ordere d By: Nando Wiggins on 06-18-2024 RBC (Bld) [#/Vol] 3.01 10*6/uL Low 4.6-6.2 [facility] Serum or plasma calcium lilli urement (mass/volume)Ordered By: Nando Wiggins on 06-18-2024 Calcium [Mass/Vol] 9.5 mg/dL 8.5-10.1 [facility] Serum or plasma creatinine m easurement (mass/volume)Ordered By: Nando Wiggins on 06-18-2024 Creatinine [Mass/Vol] 5.06 mg/dL High 0.70-1.30 [facility] Serum or plasma urea nitroge n measurement (mass/volume)Ordered By: Nando Wiggins on 06-18-2024 Urea nitrogen [Mass/Vol] 69 mg/dL High 7-18 [facility] Sodium levelOrdered By: Deb rosejeremie Rosalie on 06-18-2024 Sodium [Moles/Vol] 134 mmol/L Low 136-145 [facility] White blood cell (WBC) count Ordered By: Nando Wiggins on 06-18-2024 WBC (Bld) [#/Vol] 8.8 10*3/uL 4.4-11.0 [facility] Absolute lymphocyte countOrd ered By: Nando Wiggins on 06-11-2024 Lymphocytes Auto (Unsp spec) [#/Vol] 2.00 10*3/uL 0.83-4.51 [facility] Automated lymphocyte count a s percentage of total leukocytesOrdered By: Nando Wiggins on 06-11-2024 Lymphocytes/100 WBC Auto (Unsp spec) 25.4 % 19-41 [facility] Basophil percentageOrdered B y: Nando Wiggins on 06-11-2024 Basophils/100 WBC (Bld) 0.6 % 0-1 [facility] CNPTOUTREACHon 06-11-2024 CNPTOUTREACH Normal [facility] Carbon dioxide measurementOr dered By: Nando Wiggins on 06-11-2024 CO2 [Moles/Vol] 30.0 mmol/L 21.0-32.0 [facility] Chloride measurementOrdered By: Nando Wiggins on 06-11-2024 Chloride [Moles/Vol] 94 mmol/L Low 98-107 [facility] Culture, Anaerobic Any Sourc reed 06-11-2024 CUAN Right Forefoot No growth in 5 days. Normal [facility] Comment on above: Performed By: #### M 100.3000, M600.2200, M300.2000, M100.4001, M300.3000, M100.2000, M600.2000 ####[facility] [address] [place], [address] Eosinophil percentageOrdered By: biancaoffutt afbwolf Wiggins on 06-11-2024 Eosinophils/100 WBC (Bld) 2.7 % 0-5 [facility] Erythrocyte distribution wid th ratioOrdered By: [facility] W[facility] on 06-11-2024 Erythrocyte distribution width (RBC) [Ratio] 14.6 % 11.6-14.6 [facility] Erythrocyte distribution wid th standard deviationOrdered By: biancaoffutt afbwolf Wiggins on 06-11-2024 Erythrocyte distribution width (RBC) [Ratio] 50.4 fl High 35.1-43.9 [facility] Glomerular filtration rate ( GFR) estimationOrdered By: Nando Wiggins on 06-11-2024 GFR/1.73 sq M.predicted among non-blacks MDRD (S/P/Bld) [Vol rate/Area] 10 mL/min/{1.73_m2} Low >60 [facility] Glucose measurementOrdered B y: Nando Wiggins on 06-11-2024 Glucose [Mass/Vol] 222 mg/dL High 74-106 [facility] Hematocrit Auto (Bld) [Volum e fraction]Ordered By: Nando Wiggins on 06-11-2024 Hematocrit (Bld) [Volume fraction] 27.0 % Low 40-54 [facility] Hemoglobin measurementOrdere d By: biancaoffutt afbwolf Wiggins on 06-11-2024 Hemoglobin (Bld) [Mass/Vol] 8.1 g/dL Low 13.0-16.5 [facility] Immature granulocytes/100 WB C Auto (Bld)Ordered By: Nando Wiggins on 06-11-2024 Immature granulocytes/100 WBC (Bld) 0.500 % 0.0-0.9 [facility] MCV (mean corpuscular volume ) determinationOrdered By: Nando Wiggins on 06-11-2024 MCV (RBC) [Entitic vol] 94.7 fL High 80-94 [facility] Mean corpuscular hemoglobin (MCH) determinationOrdered By: Nando Meekcheko on 06-11-2024 MCH (RBC) [Entitic mass] 28.4 pg 27.0-32.0 [facility] Monocyte percentageOrdered B y: Nando Meekcheko on 06-11-2024 Monocytes/100 WBC (Bld) 9.7 % 0-10 [facility] Neutrophil percentageOrdered By: Nando Meekcheko on 06-11-2024 Neutrophils/100 WBC (Bld) 61.1 % 47-70 [facility] Platelet countOrdered By: Kathie fili Meekcheko on 06-11-2024 Platelets (Bld) [#/Vol] 295 10*3/uL 150-450 [facility] Potassium measurementOrdered By: Kathiebiancalilian Meeklakshmidesiree on 06-11-2024 Potassium [Moles/Vol] 5.1 mmol/L 3.5-5.1 [facility] RBC Auto (Bld) [#/Vol]Ordere d By: Nando Meekcheko on 06-11-2024 RBC (Bld) [#/Vol] 2.85 10*6/uL Low 4.6-6.2 [facility] Serum or plasma calcium lilli urement (mass/volume)Ordered By: Deblilian Meeklakshmidesiree on 06-11-2024 Calcium [Mass/Vol] 9.1 mg/dL 8.5-10.1 [facility] Serum or plasma creatinine m easurement (mass/volume)Ordered By: Kathiebiancalilian Meeklakshmidesiree on 06-11-2024 Creatinine [Mass/Vol] 5.75 mg/dL High 0.70-1.30 [facility] Serum or plasma urea nitroge n measurement (mass/volume)Ordered By: Kathiefili Edenlakshmidesiree on 06-11-2024 Urea nitrogen [Mass/Vol] 69 mg/dL High 7-18 [facility] Sodium levelOrdered By: Deb lilian Rosalie on 06-11-2024 Sodium [Moles/Vol] 131 mmol/L Low 136-145 [facility] White blood cell (WBC) count Ordered By: Nando Wiggins on 06-11-2024 WBC (Bld) [#/Vol] 7.9 10*3/uL 4.4-11.0 [facility] Bilirubin directOrdered By: Nando Wiggins on 06-08-2024 Bilirubin.direct [Mass/Vol] 0.14 mg/dL 0.00-0.30 [facility] Bilirubin, totalOrdered By: Nando Wiggins on 06-08-2024 Bilirubin [Mass/Vol] 0.40 mg/dL 0.20-1.00 [facility] Hemoglobin A1c percentageOrd ered By: Nando Wiggins on 06-08-2024 HbA1c (Bld) [Mass fraction] 7.7 % High 3.8-5.6 [facility] No Panel InformationOrdered By: Nando Wiggins on 06-08-2024 14 U/L Low 15-37 [facility] Serum globulin measurementOr dered By: Nando Wiggins on 06-08-2024 Globulin (S) [Mass/Vol] 4.4 g/dL High 2.2-4.2 [facility] Serum or plasma alanine hawkins otransferase (ALT) measurementOrdered By: Nando Wiggins on 06-08-2024 ALT [Catalytic activity/Vol] 7 U/L Low 16-61 [facility] Serum or plasma albumin lilli urement (mass/volume)Ordered By: Nando Wiggins on 06-08-2024 Albumin [Mass/Vol] 2.2 g/dL Low 3.2-5.0 [facility] Serum or plasma alkaline penelope sphatase measurementOrdered By: Nando Wiggins on 06-08-2024 ALP [Catalytic activity/Vol] 56 U/L 45-117 [facility] Total proteinOrdered By: Sinan Wiggins on 06-08-2024 Protein [Mass/Vol] 6.6 g/dL 6.4-8.2 [facility] Wound Cultureon 06-08-2024 WC Right Forefoot No growth aerobically. Normal [facility] Comment on above: Performed By: #### M 100.3000, M600.2200, M300.2000, M100.4001, M300.3000, M100.2000, M600.2000 ####[facility] [address] [place], [address] Acid fast bacillus (AFB) cul tureOrdered By: Des Ruelas on 06-06-2024 Mycobacterium sp identified Org specific cx Nom (Unsp spec) [facility] Anaerobic cultureOrdered By: Des Ruelas on 06-06-2024 Bacteria identified Anaer cx Nom (Unsp spec) No growth in 5 days. [facility] Bedside Glucoseon 06-06-2024 FINGERSTICK GLU 102 mg/dL Normal 74-106 [facility] Comment on above: Result Comment: FANG ROLANDOENT OF PATIENT CARE PER NURSING PROTOCOL Performed By: #### L 501.080 ####[facility] [address] [place], [address] Bilirubin directOrdered By: Nando Wiggins on 06-06-2024 Bilirubin.direct [Mass/Vol] 0.12 mg/dL 0.00-0.30 [facility] Bilirubin, totalOrdered By: Nando Wiggins on 06-06-2024 Bilirubin [Mass/Vol] 0.30 mg/dL 0.20-1.00 [facility] Decalcification bone/plaqueo n 06-06-2024 Decalcification bone/plaque Normal [facility] Comment on above: Performed By: #### P DEC ####[facility] [address] [place], [place], [address] Foot min 3 Viewson 5 Foot min 3 Views Normal [facility] Fungus cultureOrdered By: Kana Ruelas on 06-06-2024 Fungus identified Cx Nom (Unsp spec) [facility] Fungus stainOrdered By: Juve Ruelas on 06-06-2024 Fungus identified Fungus stain Nom (Unsp spec) [facility] deOrdered By: Des Ruelas on 06-06-2024 Glucose [Mass/Vol] 102 mg/dL 74-106 [facility] Gram Stainon 06-06-2024 GS Right Forefoot Gram Stain 4+ Red Blood Cells 1+ White Blood Cells No organisms seen Normal [facility] Comment on above: Performed By: #### M 100.3000, M600.2200, M300.2000, M100.4001, M300.3000, M100.2000, M600.2000 ####[facility] [address] [place], [address] Gram stainOrdered By: Des Ruelas on 06-06-2024 Microscopic observation Gram stain Nom (Unsp spec) [facility] Hemoglobin A1c percentageOrd ered By: Nando Wiggins on 06-06-2024 HbA1c (Bld) [Mass fraction] 8.0 % High 3.8-5.6 [facility] MR/POSTOP.ANEon 06-06-2024 MR/POSTOP.ANE Normal [facility] MR/UKCWTPUM6uy 06-06-2024 MR/POSTOPAN2 Normal [facility] No Panel InformationOrdered By: Nando Wiggins on 06-06-2024 13 U/L Low 15-37 [facility] Operative Reporton Operative Report Normal [facility] Serum globulin measurementOr dered By: Nando Wiggins on 06-06-2024 Globulin (S) [Mass/Vol] 5.1 g/dL High 2.2-4.2 [facility] Serum or plasma alanine hawkins otransferase (ALT) measurementOrdered By: Nando Wiggins on 06-06-2024 ALT [Catalytic activity/Vol] 18 U/L 16-61 [facility] Serum or plasma albumin lilli urement (mass/volume)Ordered By: Nando Wiggins on 06-06-2024 Albumin [Mass/Vol] 2.4 g/dL Low 3.2-5.0 [facility] Serum or plasma alkaline penelope sphatase measurementOrdered By: Nando Wiggins on 06-06-2024 ALP [Catalytic activity/Vol] 68 U/L 45-117 [facility] Total proteinOrdered By: Sinan Wiggins on 06-06-2024 Protein [Mass/Vol] 7.5 g/dL 6.4-8.2 [facility] Wound Cultureon 06-05-2024 WC Normal [facility] Comment on above: Performed By: #### M 100.2000, M100.3000, M100.4001 ####[facility] [address] [place], [address] MR/PAT.ANEon 06-04-2024 MR/PAT.ANE Normal [facility] CNPNon 05-30-2024 CNPN Normal [facility] History AND Physic ariella 05-29-2024 Wound Ctr History & Physical Normal [facility] Operative Reporton Operative Report Normal [facility] History AND Physic ariella 05-17-2024 Wound Ctr History & Physical Normal [facility] Basic Metabolic Profile (BMP )on 05-14-2024 BUN Normal 7-18 [facility] Comment on above: Result Comment: Canc elled via OM: Order cancelled - Patient discharged Performed By: #### L 500.2500 ####[facility] [address] [place], [address] Result Comment: Canc elled via OM: MD Ordered Performed By: #### L 100.0500, L500.2500 ####[facility] [address] [place], [address] BUN/CRE Normal 10-20 [facility] Comment on above: Result Comment: Canc elled via OM: Order cancelled - Patient discharged Performed By: #### L 500.2500 ####[facility] [address] [place], [address] Result Comment: Canc elled via OM: MD Ordered Performed By: #### L 100.0500, L500.2500 ####[facility] [address] [place], [address] CA,Total Normal 8.5-10.1 [facility] Comment on above: Result Comment: Canc elled via OM: Order cancelled - Patient discharged Performed By: #### L 500.2500 ####[facility] [address] [place], [address] Result Comment: Canc elled via OM: MD Ordered Performed By: #### L 100.0500, L500.2500 ####[facility] [address] [place], [address] CL Normal 98-107 [facility] Comment on above: Result Comment: Canc elled via OM: Order cancelled - Patient discharged Performed By: #### L 500.2500 ####[facility] [address] [place], [address] Result Comment: Canc elled via OM: MD Ordered Performed By: #### L 100.0500, L500.2500 ####[facility] [address] [place], [address] CO2 Normal 21.0-32.0 [facility] Comment on above: Result Comment: Canc elled via OM: Order cancelled - Patient discharged Performed By: #### L 500.2500 ####[facility] [address] [place], [address] Result Comment: Canc elled via OM: MD Ordered Performed By: #### L 100.0500, L500.2500 ####[facility] [address] [place], [address] CREAT,SERUM Normal 0.70-1.30 [facility] Comment on above: Result Comment: Canc elled via OM: Order cancelled - Patient discharged Performed By: #### L 500.2500 ####[facility] [address] [place], [address] Result Comment: Canc elled via OM: MD Ordered Performed By: #### L 100.0500, L500.2500 ####[facility] [place] [facility] [address] [place], [address] EST GFR Normal >60 [facility] Comment on above: Result Comment: Canc elled via OM: Order cancelled - Patient discharged Performed By: #### L 500.2500 ####[facility] [address], [address] Result Comment: Canc elled via OM: MD Ordered Performed By: #### L 100.0500, L500.2500 ####[facility] [address] [place], [address] EST GFR - AA Normal >60 [facility] Comment on above: Result Comment: Canc elled via OM: Order cancelled - Patient discharged Performed By: #### L 500.2500 ####[facility] [address] [place], [address] Result Comment: Canc elled via OM: MD Ordered Performed By: #### L 100.0500, L500.2500 ####[facility] [address] [place], [address] GAP Normal 5-15 [facility] Comment on above: Result Comment: Canc elled via OM: Order cancelled - Patient discharged Performed By: #### L 500.2500 ####[facility] [address] [place], [address] Result Comment: Canc elled via OM: MD Ordered Performed By: #### L 100.0500, L500.2500 ####[facility] [address] [place], [address] GLU Normal 74-106 [facility] Comment on above: Result Comment: Canc elled via OM: Order cancelled - Patient discharged Performed By: #### L 500.2500 ####[facility] [address] [place], [address] Result Comment: Canc elled via OM: MD Ordered Performed By: #### L 100.0500, L500.2500 ####[facility] [address] [place], [address] Potassium Normal 3.5-5.1 [facility] Comment on above: Result Comment: Canc elled via OM: Order cancelled - Patient discharged Performed By: #### L 500.2500 ####[facility] [address] [place], [address] Result Comment: Canc elled via OM: MD Ordered Performed By: #### L 100.0500, L500.2500 ####[facility] [address] [place], [address] Basic Metabolic Profile (BMP) Normal 136-145 [facility] Comment on above: Result Comment: Canc elled via OM: Order cancelled - Patient discharged Performed By: #### L 500.2500 ####[facility] [address] [place], [address] Result Comment: Canc elled via OM: MD Ordered Performed By: #### L 100.0500, L500.2500 ####[facility] [address] [place], [address] CBC-Complete Blood Cnt No Di ffon 05-14-2024 HCT Normal 40-54 [facility] Comment on above: Result Comment: Canc elled via OM: Order cancelled - Patient discharged Performed By: #### L 100.0500 ####[facility] [address] [place], [address] HGB Normal 13.0-16.5 [facility] Comment on above: Result Comment: Canc elled via OM: Order cancelled - Patient discharged Performed By: #### L 100.0500 ####[facility] [address] [place], [address] MCH Normal 27.0-32.0 [facility] Comment on above: Result Comment: Canc elled via OM: Order cancelled - Patient discharged Performed By: #### L 100.0500 ####[facility] [address] [place], [address] MCHC Normal 32-36 [facility] Comment on above: Result Comment: Canc elled via OM: Order cancelled - Patient discharged Performed By: #### L 100.0500 ####[facility] [address] [place], [address] MCV Normal 80-94 [facility] Comment on above: Result Comment: Canc elled via OM: Order cancelled - Patient discharged Performed By: #### L 100.0500 ####[facility] [address] [place], [address] PLT Normal 150-450 [facility] Comment on above: Result Comment: Canc elled via OM: Order cancelled - Patient discharged Performed By: #### L 100.0500 ####[facility] [address] [place], [address] RBC Normal 4.6-6.2 [facility] Comment on above: Result Comment: Canc elled via OM: Order cancelled - Patient discharged Performed By: #### L 100.0500 ####[facility] [address] [place], [address] RDW CV Normal 11.6-14.6 [facility] Comment on above: Result Comment: Canc elled via OM: Order cancelled - Patient discharged Performed By: #### L 100.0500 ####[facility] [address] [place], [address] RDW SD Normal 35.1-43.9 [facility] Comment on above: Result Comment: Canc elled via OM: Order cancelled - Patient discharged Performed By: #### L 100.0500 ####[facility] [address], [address] WBC Normal 4.4-11.0 [facility] Comment on above: Result Comment: Canc elled via OM: Order cancelled - Patient discharged Performed By: #### L 100.0500 ####[facility] [address] [place], [address] HCT Normal 40-54 [facility] Comment on above: Result Comment: Canc elled via OM: MD Ordered Performed By: #### L 100.0500, L500.2500 ####[facility] [address] [place], [address] HGB Normal 13.0-16.5 [facility] Comment on above: Result Comment: Canc elled via OM: MD Ordered Performed By: #### L 100.0500, L500.2500 ####[facility] [address] [place], [address] MCH Normal 27.0-32.0 [facility] Comment on above: Result Comment: Canc elled via OM: MD Ordered Performed By: #### L 100.0500, L500.2500 ####[facility] [address] [place], [address] MCHC Normal 32-36 [facility] Comment on above: Result Comment: Canc elled via OM: MD Ordered Performed By: #### L 100.0500, L500.2500 ####[facility] [address] [place], [address] MCV Normal 80-94 [facility] Comment on above: Result Comment: Canc elled via OM: MD Ordered Performed By: #### L 100.0500, L500.2500 ####[facility] [address] [place], [address] PLT Normal 150-450 [facility] Comment on above: Result Comment: Canc elled via OM: MD Ordered Performed By: #### L 100.0500, L500.2500 ####[facility] [address] [place], [address] RBC Normal 4.6-6.2 [facility] Comment on above: Result Comment: Canc elled via OM: MD Ordered Performed By: #### L 100.0500, L500.2500 ####[facility] [address] [place], [address] RDW CV Normal 11.6-14.6 [facility] Comment on above: Result Comment: Canc elled via OM: MD Ordered Performed By: #### L 100.0500, L500.2500 ####[facility] [address] [place], [address] RDW SD Normal 35.1-43.9 [facility] Comment on above: Result Comment: Canc elled via OM: MD Ordered Performed By: #### L 100.0500, L500.2500 ####[facility] [address] [place], [address] WBC Normal 4.4-11.0 [facility] Comment on above: Result Comment: Canc elled via OM: MD Ordered Performed By: #### L 100.0500, L500.2500 ####[facility] [address] [place], [address] Basic Metabolic Profile (BMP )on 05-13-2024 BUN Normal 7-18 [facility] Comment on above: Result Comment: Canc elled via OM: MD Ordered Performed By: #### L 500.2500, L100.0500 ####[facility] [address] [place], [address] BUN/CRE Normal 10-20 [facility] Comment on above: Result Comment: Canc elled via OM: MD Ordered Performed By: #### L 500.2500, L100.0500 ####[facility] [address] [place], [address] CA,Total Normal 8.5-10.1 [facility] Comment on above: Result Comment: Canc elled via OM: MD Ordered Performed By: #### L 500.2500, L100.0500 ####[facility] [address] [place], [address] CL Normal 98-107 [facility] Comment on above: Result Comment: Canc elled via OM: MD Ordered Performed By: #### L 500.2500, L100.0500 ####[facility] [address] [place], [address] CO2 Normal 21.0-32.0 [facility] Comment on above: Result Comment: Canc elled via OM: MD Ordered Performed By: #### L 500.2500, L100.0500 ####[facility] [address] [place], [address] CREAT,SERUM Normal 0.70-1.30 [facility] Comment on above: Result Comment: Canc elled via OM: MD Ordered Performed By: #### L 500.2500, L100.0500 ####[facility] [address] [place], [address] EST GFR Normal >60 [facility] Comment on above: Result Comment: Canc elled via OM: MD Ordered Performed By: #### L 500.2500, L100.0500 ####[facility] [address] [place], [address] EST GFR - AA Normal >60 [facility] Comment on above: Result Comment: Canc elled via OM: MD Ordered Performed By: #### L 500.2500, L100.0500 ####[facility] [address] [place], [address] GAP Normal 5-15 [facility] Comment on above: Result Comment: Canc elled via OM: MD Ordered Performed By: #### L 500.2500, L100.0500 ####[facility] [address] [place], [address] GLU Normal 74-106 [facility] Comment on above: Result Comment: Canc elled via OM: MD Ordered Performed By: #### L 500.2500, L100.0500 ####[facility] [address] [place], [address] Potassium Normal 3.5-5.1 [facility] Comment on above: Result Comment: Canc elled via OM: MD Ordered Performed By: #### L 500.2500, L100.0500 ####[facility] [address] [place], [address] Basic Metabolic Profile (BMP) Normal 136-145 [facility] Comment on above: Result Comment: Canc elled via OM: MD Ordered Performed By: #### L 500.2500, L100.0500 ####[facility] [address] [place], [address] CBC-Complete Blood Cnt No Di ffon 05-13-2024 HCT Normal 40-54 [facility] Comment on above: Result Comment: Canc elled via OM: MD Ordered Performed By: #### L 500.2500, L100.0500 ####[facility] [address] [place], [address] HGB Normal 13.0-16.5 [facility] Comment on above: Result Comment: Canc elled via OM: MD Ordered Performed By: #### L 500.2500, L100.0500 ####[facility] [address] [place], [address] MCH Normal 27.0-32.0 [facility] Comment on above: Result Comment: Canc elled via OM: MD Ordered Performed By: #### L 500.2500, L100.0500 ####[facility] [address] [place], [address] MCHC Normal 32-36 [facility] Comment on above: Result Comment: Canc elled via OM: MD Ordered Performed By: #### L 500.2500, L100.0500 ####[facility] [address] [place], [address] MCV Normal 80-94 [facility] Comment on above: Result Comment: Canc elled via OM: MD Ordered Performed By: #### L 500.2500, L100.0500 ####[facility] [address] [place], [address] PLT Normal 150-450 [facility] Comment on above: Result Comment: Canc elled via OM: MD Ordered Performed By: #### L 500.2500, L100.0500 ####[facility] [address] [place], [address] RBC Normal 4.6-6.2 [facility] Comment on above: Result Comment: Canc elled via OM: MD Ordered Performed By: #### L 500.2500, L100.0500 ####[facility] [address] [place], [address] RDW CV Normal 11.6-14.6 [facility] Comment on above: Result Comment: Canc elled via OM: MD Ordered Performed By: #### L 500.2500, L100.0500 ####[facility] [address] [place], [address] RDW SD Normal 35.1-43.9 [facility] Comment on above: Result Comment: Canc elled via OM: MD Ordered Performed By: #### L 500.2500, L100.0500 ####[facility] [address] [place], [address] WBC Normal 4.4-11.0 [facility] Comment on above: Result Comment: Canc elled via OM: MD Ordered Performed By: #### L 500.2500, L100.0500 ####[facility] [address] [place], [address] Basic Metabolic Profile (BMP )on 05-12-2024 BUN Normal 7-18 [facility] Comment on above: Result Comment: Canc elled via OM: Order cancelled - Patient discharged Performed By: #### L 500.2500 ####[facility] [address], [address] Result Comment: Canc elled via OM: MD Ordered Performed By: #### L 100.0500, L500.2500 ####[facility] [address] [place], [address] BUN/CRE Normal 10-20 [facility] Comment on above: Result Comment: Canc elled via OM: Order cancelled - Patient discharged Performed By: #### L 500.2500 ####[facility] [address] [place], [address] Result Comment: Canc elled via OM: MD Ordered Performed By: #### L 100.0500, L500.2500 ####[facility] [address] [place], [address] CA,Total Normal 8.5-10.1 [facility] Comment on above: Result Comment: Canc elled via OM: Order cancelled - Patient discharged Performed By: #### L 500.2500 ####[facility] [address] [place], [address] Result Comment: Canc elled via OM: MD Ordered Performed By: #### L 100.0500, L500.2500 ####[facility] [address] [place], [address] CL Normal 98-107 [facility] Comment on above: Result Comment: Canc elled via OM: Order cancelled - Patient discharged Performed By: #### L 500.2500 ####[facility] [address], [address] Result Comment: Canc elled via OM: MD Ordered Performed By: #### L 100.0500, L500.2500 ####[facility] [address], [address] CO2 Normal 21.0-32.0 [facility] Comment on above: Result Comment: Canc elled via OM: Order cancelled - Patient discharged Performed By: #### L 500.2500 ####[facility] [address] [place], [address] Result Comment: Canc elled via OM: MD Ordered Performed By: #### L 100.0500, L500.2500 ####[facility] [address] [place], [address] CREAT,SERUM Normal 0.70-1.30 [facility] Comment on above: Result Comment: Canc elled via OM: Order cancelled - Patient discharged Performed By: #### L 500.2500 ####[facility] [address] [place], [address] Result Comment: Canc elled via OM: MD Ordered Performed By: #### L 100.0500, L500.2500 ####[facility] [address] [place], [address] EST GFR Normal >60 [facility] Comment on above: Result Comment: Canc elled via OM: Order cancelled - Patient discharged Performed By: #### L 500.2500 ####[facility] [address] [place], [address] Result Comment: Canc elled via OM: MD Ordered Performed By: #### L 100.0500, L500.2500 ####[facility] [address] [place], [address] EST GFR - AA Normal >60 [facility] Comment on above: Result Comment: Canc elled via OM: Order cancelled - Patient discharged Performed By: #### L 500.2500 ####[facility] [address] [place], [address] Result Comment: Canc elled via OM: MD Ordered Performed By: #### L 100.0500, L500.2500 ####[facility] [address], [address] GAP Normal 5-15 [facility] Comment on above: Result Comment: Canc elled via OM: Order cancelled - Patient discharged Performed By: #### L 500.2500 ####[facility] [address] [place], [address] Result Comment: Canc elled via OM: MD Ordered Performed By: #### L 100.0500, L500.2500 ####[facility] [address] [place], [address] GLU Normal 74-106 [facility] Comment on above: Result Comment: Canc elled via OM: Order cancelled - Patient discharged Performed By: #### L 500.2500 ####[facility] [address] [place], [address] Result Comment: Canc elled via OM: MD Ordered Performed By: #### L 100.0500, L500.2500 ####[facility] [address] [place], [address] Potassium Normal 3.5-5.1 [facility] Comment on above: Result Comment: Canc elled via OM: Order cancelled - Patient discharged Performed By: #### L 500.2500 ####[facility] [address] [place], [address] Result Comment: Canc elled via OM: MD Ordered Performed By: #### L 100.0500, L500.2500 ####[facility] [address], [address] Basic Metabolic Profile (BMP) Normal 136-145 [facility] Comment on above: Result Comment: Canc elled via OM: Order cancelled - Patient discharged Performed By: #### L 500.2500 ####[facility] [address], [address] Result Comment: Canc elled via OM: MD Ordered Performed By: #### L 100.0500, L500.2500 ####[facility] [address] [place], [address] CBC-Complete Blood Cnt No Di ffon 05-12-2024 HCT Normal 40-54 [facility] Comment on above: Result Comment: Canc elled via OM: Order cancelled - Patient discharged Performed By: #### L 100.0500 ####[facility] [address] [place], [address] HGB Normal 13.0-16.5 [facility] Comment on above: Result Comment: Canc elled via OM: Order cancelled - Patient discharged Performed By: #### L 100.0500 ####[facility] [address] [place], [address] MCH Normal 27.0-32.0 [facility] Comment on above: Result Comment: Canc elled via OM: Order cancelled - Patient discharged Performed By: #### L 100.0500 ####[facility] [address] [place], [address] MCHC Normal 32-36 [facility] Comment on above: Result Comment: Canc elled via OM: Order cancelled - Patient discharged Performed By: #### L 100.0500 ####[facility] [address] [place], [address] MCV Normal 80-94 [facility] Comment on above: Result Comment: Canc elled via OM: Order cancelled - Patient discharged Performed By: #### L 100.0500 ####[facility] [address] [place], [address] PLT Normal 150-450 [facility] Comment on above: Result Comment: Canc elled via OM: Order cancelled - Patient discharged Performed By: #### L 100.0500 ####[facility] [address] [place], [address] RBC Normal 4.6-6.2 [facility] Comment on above: Result Comment: Canc elled via OM: Order cancelled - Patient discharged Performed By: #### L 100.0500 ####[facility] [address] [place], [address] RDW CV Normal 11.6-14.6 [facility] Comment on above: Result Comment: Canc elled via OM: Order cancelled - Patient discharged Performed By: #### L 100.0500 ####[facility] [address] [place], [address] RDW SD Normal 35.1-43.9 [facility] Comment on above: Result Comment: Canc elled via OM: Order cancelled - Patient discharged Performed By: #### L 100.0500 ####[facility] [address] [place], [address] WBC Normal 4.4-11.0 [facility] Comment on above: Result Comment: Canc elled via OM: Order cancelled - Patient discharged Performed By: #### L 100.0500 ####[facility] [address] [place], [address] HCT Normal 40-54 [facility] Comment on above: Result Comment: Canc elled via OM: MD Ordered Performed By: #### L 100.0500, L500.2500 ####[facility] [address] [place], [address] HGB Normal 13.0-16.5 [facility] Comment on above: Result Comment: Canc elled via OM: MD Ordered Performed By: #### L 100.0500, L500.2500 ####[facility] [address] [place], [address] MCH Normal 27.0-32.0 [facility] Comment on above: Result Comment: Canc elled via OM: MD Ordered Performed By: #### L 100.0500, L500.2500 ####[facility] [address] [place], [address] MCHC Normal 32-36 [facility] Comment on above: Result Comment: Canc elled via OM: MD Ordered Performed By: #### L 100.0500, L500.2500 ####[facility] [address] [place], [address] MCV Normal 80-94 [facility] Comment on above: Result Comment: Canc elled via OM: MD Ordered Performed By: #### L 100.0500, L500.2500 ####[facility] [address] [place], [address] PLT Normal 150-450 [facility] Comment on above: Result Comment: Canc elled via OM: MD Ordered Performed By: #### L 100.0500, L500.2500 ####[facility] [address] [place], [address] RBC Normal 4.6-6.2 [facility] Comment on above: Result Comment: Canc elled via OM: MD Ordered Performed By: #### L 100.0500, L500.2500 ####[facility] [address] [place], [address] RDW CV Normal 11.6-14.6 [facility] Comment on above: Result Comment: Canc elled via OM: MD Ordered Performed By: #### L 100.0500, L500.2500 ####[facility] [address] [place], [address] RDW SD Normal 35.1-43.9 [facility] Comment on above: Result Comment: Canc elled via OM: MD Ordered Performed By: #### L 100.0500, L500.2500 ####[facility] [address] [place], [address] WBC Normal 4.4-11.0 [facility] Comment on above: Result Comment: Canc elled via OM: MD Ordered Performed By: #### L 100.0500, L500.2500 ####[facility] [address] [place], [address] Basic Metabolic Profile (BMP )on 05-11-2024 BUN Normal -18 [facility] Comment on above: Result Comment: Canc elled via OM: MD Ordered Performed By: #### L 500.2500, L100.0500 ####[facility] [address] [place], [address] BUN/CRE Normal 10-20 [facility] Comment on above: Result Comment: Canc elled via OM: MD Ordered Performed By: #### L 500.2500, L100.0500 ####[facility] [address] [place], [address] CA,Total Normal 8.5-10.1 [facility] Comment on above: Result Comment: Canc elled via OM: MD Ordered Performed By: #### L 500.2500, L100.0500 ####[facility] [address] [place], [address] CL Normal 98-107 [facility] Comment on above: Result Comment: Canc elled via OM: MD Ordered Performed By: #### L 500.2500, L100.0500 ####[facility] [address] [place], [address] CO2 Normal 21.0-32.0 [facility] Comment on above: Result Comment: Canc elled via OM: MD Ordered Performed By: #### L 500.2500, L100.0500 ####[facility] [address] [place], [address] CREAT,SERUM Normal 0.70-1.30 [facility] Comment on above: Result Comment: Canc elled via OM: MD Ordered Performed By: #### L 500.2500, L100.0500 ####[facility] [address] [place], [address] EST GFR Normal >60 [facility] Comment on above: Result Comment: Canc elled via OM: MD Ordered Performed By: #### L 500.2500, L100.0500 ####[facility] [address] [place], [address] EST GFR - AA Normal >60 [facility] Comment on above: Result Comment: Canc elled via OM: MD Ordered Performed By: #### L 500.2500, L100.0500 ####[facility] [address] [place], [address] GAP Normal 5-15 [facility] Comment on above: Result Comment: Canc elled via OM: MD Ordered Performed By: #### L 500.2500, L100.0500 ####[facility] [address] [place], [address] GLU Normal 74-106 [facility] Comment on above: Result Comment: Canc elled via OM: MD Ordered Performed By: #### L 500.2500, L100.0500 ####[facility] [address] [place], [address] Potassium Normal 3.5-5.1 [facility] Comment on above: Result Comment: Canc elled via OM: MD Ordered Performed By: #### L 500.2500, L100.0500 ####[facility] [address] [place], [address] Basic Metabolic Profile (BMP) Normal 136-145 [facility] Comment on above: Result Comment: Canc elled via OM: MD Ordered Performed By: #### L 500.2500, L100.0500 ####[facility] [address] [place], [address] CBC-Complete Blood Cnt No Di ffon 05-11-2024 HCT Normal 40-54 [facility] Comment on above: Result Comment: Canc elled via OM: MD Ordered Performed By: #### L 500.2500, L100.0500 ####[facility] [address] [place], [address] HGB Normal 13.0-16.5 [facility] Comment on above: Result Comment: Canc elled via OM: MD Ordered Performed By: #### L 500.2500, L100.0500 ####[facility] [address] [place], [address] MCH Normal 27.0-32.0 [facility] Comment on above: Result Comment: Canc elled via OM: MD Ordered Performed By: #### L 500.2500, L100.0500 ####[facility] [address] [place], [address] MCHC Normal 32-36 [facility] Comment on above: Result Comment: Canc elled via OM: MD Ordered Performed By: #### L 500.2500, L100.0500 ####[facility] [address] [place], [address] MCV Normal 80-94 [facility] Comment on above: Result Comment: Canc elled via OM: MD Ordered Performed By: #### L 500.2500, L100.0500 ####[facility] [address] [place], [address] PLT Normal 150-450 [facility] Comment on above: Result Comment: Canc elled via OM: MD Ordered Performed By: #### L 500.2500, L100.0500 ####[facility] [address] [place], [address] RBC Normal 4.6-6.2 [facility] Comment on above: Result Comment: Canc elled via OM: MD Ordered Performed By: #### L 500.2500, L100.0500 ####[facility] [address] [place], [address] RDW CV Normal 11.6-14.6 [facility] Comment on above: Result Comment: Canc elled via OM: MD Ordered Performed By: #### L 500.2500, L100.0500 ####[facility] [address] [place], [address] RDW SD Normal 35.1-43.9 [facility] Comment on above: Result Comment: Canc elled via OM: MD Ordered Performed By: #### L 500.2500, L100.0500 ####[facility] [address] [place], [address] WBC Normal 4.4-11.0 [facility] Comment on above: Result Comment: Canc elled via OM: MD Ordered Performed By: #### L 500.2500, L100.0500 ####[facility] [address] [place], [address] Basic Metabolic Profile (BMP )on 05-10-2024 BUN/CRE 9.4 RATIO Low 10-20 [facility] Comment on above: Performed By: #### L 500.2500, L100.0500 ####[facility] [address] [place], [address] CA,Total 8.8 mg/dL Normal 8.5-10.1 [facility] Comment on above: Performed By: #### L 500.2500, L100.0500 ####[facility] [address] [place], [address] Chloride [Moles/Vol] 102 mmol/L Normal 98-107 [facility] Comment on above: Performed By: #### L 500.2500, L100.0500 ####[facility] [address] [place], [address] CO2 [Moles/Vol] 25.0 mmol/L Normal 21.0-32.0 [facility] Comment on above: Performed By: #### L 500.2500, L100.0500 ####[facility] [address] [place], [address] Creatinine [Mass/Vol] 5.98 mg/dL High 0.70-1.30 [facility] Comment on above: Result Comment: The validity of the calculated GFR GFRAA in patients over70 years has not been determined. Clinical correlation isessential. Performed By: #### L 500.2500, L100.0500 ####[facility] [address] [place], [address] ECRCL 9.33 ml/min Normal [facility] Comment on above: Performed By: #### L 500.2500, L100.0500 ####[facility] [address] [place], [address] EST GFR - AA 12 mL/min Low >60 [facility] Comment on above: Result Comment: Afri can [place] GFR Calc Performed By: #### L 500.2500, L100.0500 ####[facility] [address] [place], [address] GAP 8 Normal 5-15 [facility] Comment on above: Performed By: #### L 500.2500, L100.0500 ####[facility] [address] [place], [address] GFR/1.73 sq M.predicted among non-blacks MDRD (S/P/Bld) [Vol rate/Area] 10 mL/min/{1.73_m2} Low >60 [facility] Comment on above: Result Comment: Non- GFR Calc Performed By: #### L 500.2500, L100.0500 ####[facility] [address] [place], [address] Glucose [Mass/Vol] 141 mg/dL High 74-106 [facility] Comment on above: Result Comment: Fast ing Glucose result greater than or equal to 126 mg/dLsuggests DIABETES MELLITUS per A.D.A. criteria. Performed By: #### L 500.2500, L100.0500 ####[facility] [address] [place], [address] Potassium [Moles/Vol] 4.2 mmol/L Normal 3.5-5.1 [facility] Comment on above: Performed By: #### L 500.2500, L100.0500 ####[facility] [address] [place], [address] Sodium [Moles/Vol] 135 mmol/L Low 136-145 [facility] Comment on above: Performed By: #### L 500.2500, L100.0500 ####[facility] [address] [place], [address] Urea nitrogen [Mass/Vol] 56 mg/dL High 7-18 [facility] Comment on above: Performed By: #### L 500.2500, L100.0500 ####[facility] [address] [place], [address] Bedside Glucoseon 05-10-2024 FINGERSTICK GLU 188 mg/dL High 74-106 [facility] Comment on above: Result Comment: FANG VAZQUEZ OF PATIENT CARE PER NURSING PROTOCOL Performed By: #### L 501.080 ####[facility] [address] [place], [address] FINGERSTICK GLU 165 mg/dL High 74-106 [facility] Comment on above: Result Comment: FANG GEMENT OF PATIENT CARE PER NURSING PROTOCOL Performed By: #### L 501.080 ####[facility] [address] [place], [address] FINGERSTICK GLU 115 mg/dL High 74-106 [facility] Comment on above: Result Comment: FANG GEMENT OF PATIENT CARE PER NURSING PROTOCOL Performed By: #### L 501.080 ####[facility] [address], [address] CBC-Complete Blood Cnt No Di ffon 05-10-2024 Erythrocyte distribution width (RBC) [Ratio] 15.0 % High 11.6-14.6 [facility] Comment on above: Performed By: #### L 500.2500, L100.0500 ####[facility] [address] [place], [address] Hematocrit (Bld) [Volume fraction] 29.9 % Low 40-54 [facility] Comment on above: Performed By: #### L 500.2500, L100.0500 ####[facility] [address] [place], [address] Hemoglobin (Bld) [Mass/Vol] 9.2 g/dL Low 13.0-16.5 [facility] Comment on above: Performed By: #### L 500.2500, L100.0500 ####[facility] [address] [place], [address] MCH (RBC) [Entitic mass] 29.3 pg Normal 27.0-32.0 [facility] Comment on above: Performed By: #### L 500.2500, L100.0500 ####[facility] [address] [place], [address] MCHC (RBC) [Mass/Vol] 30.8 g/dL Low 32-36 [facility] Comment on above: Performed By: #### L 500.2500, L100.0500 ####[facility] [address] [place], [address] MCV (RBC) [Entitic vol] 95.2 fL High 80-94 [facility] Comment on above: Performed By: #### L 500.2500, L100.0500 ####[facility] [address] [place], [address] Platelet mean volume (Bld) [Entitic vol] 10.5 fL Normal 6.2-12.0 [facility] Comment on above: Performed By: #### L 500.2500, L100.0500 ####[facility] [address] [place], [address] Platelets (Bld) [#/Vol] 205 10*3/uL Normal 150-450 [facility] Comment on above: Performed By: #### L 500.2500, L100.0500 ####[facility] [address] [place], [address] RBC (Bld) [#/Vol] 3.14 10*6/uL Low 4.6-6.2 [facility] Comment on above: Performed By: #### L 500.2500, L100.0500 ####[facility] [address] [place], [address] RDW SD 51.8 fl High 35.1-43.9 [facility] Comment on above: Performed By: #### L 500.2500, L100.0500 ####[facility] [address] [place], [address] WBC (Bld) [#/Vol] 8.2 10*3/uL Normal 4.4-11.0 [facility] Comment on above: Performed By: #### L 500.2500, L100.0500 ####[facility] [address] [place], [address] Culture, Anaerobic Any Sourc reed 05-10-2024 CUAN COLLECTED IN OR RIGH T HALLUX AND 1ST METATARSAL No anaerobic bacteria isolated. Normal [facility] Comment on above: Performed By: #### M 100.2000, M100.3000, M100.4001 ####[facility] [address] [place], [address] Vancomycin, Random Levelon 1 07-11-2023 VANCO, RANDOM 21.6 ug/mL High 0.0-15.0 [facility] Comment on above: Order Comment: Comme nts: PLEASE DRAW PRE-DIALYSIS Result Comment: VANC OMYCIN STANDARD DRUG THERAPY: CRITICAL VALUE IS > 15.0 mg/LVANCOMYCIN HIGH INTENSITY THERAPY: CRITICAL VALUE IS > 20.0 mg/LPLEASE CONTACT PHARMACY SERVICES (#9042) FOR INTERPRETATIONOF RESULTS. THIS RESULT DOES NOT REPRESENT A PEAK OR TROUGHLEVEL FOR THIS DRUG. Performed By: #### L 501.8850 ####[facility] [address] [place], [address] Basic Metabolic Profile (BMP )on 05-09-2024 BUN/CRE 9.9 RATIO Low 10-20 [facility] Comment on above: Performed By: #### L 100.0500, L500.2500 ####[facility] [address] [place], [address] CA,Total 8.8 mg/dL Normal 8.5-10.1 [facility] Comment on above: Performed By: #### L 100.0500, L500.2500 ####[facility] [address] [place], [address] Chloride [Moles/Vol] 102 mmol/L Normal 98-107 [facility] Comment on above: Performed By: #### L 100.0500, L500.2500 ####[facility] [address] [place], [address] CO2 [Moles/Vol] 27.0 mmol/L Normal 21.0-32.0 [facility] Comment on above: Performed By: #### L 100.0500, L500.2500 ####[facility] [address] [place], [address] Creatinine [Mass/Vol] 4.74 mg/dL High 0.70-1.30 [facility] Comment on above: Result Comment: The validity of the calculated GFR GFRAA in patients over70 years has not been determined. Clinical correlation isessential. Performed By: #### L 100.0500, L500.2500 ####[facility] [address] [place], [address] ECRCL 11.77 ml/min Normal [facility] Comment on above: Performed By: #### L 100.0500, L500.2500 ####[facility] [address] [place], [address] EST GFR - AA 15 mL/min Low >60 [facility] Comment on above: Result Comment: Afri can [place] GFR Calc Performed By: #### L 100.0500, L500.2500 ####[facility] [address] [place], [address] GAP 6 Normal 5-15 [facility] Comment on above: Performed By: #### L 100.0500, L500.2500 ####[facility] [address] [place], [address] GFR/1.73 sq M.predicted among non-blacks MDRD (S/P/Bld) [Vol rate/Area] 13 mL/min/{1.73_m2} Low >60 [facility] Comment on above: Result Comment: Non- GFR Calc Performed By: #### L 100.0500, L500.2500 ####[facility] [address] [place], [address] Glucose [Mass/Vol] 105 mg/dL Normal 74-106 [facility] Comment on above: Result Comment: Fast ing Glucose result from 100 to 125 mg/dLsuggests IMPAIRED HOMEOSTASIS per A.D.A. criteria. Performed By: #### L 100.0500, L500.2500 ####[facility] [address] [place], [address] Potassium [Moles/Vol] 4.2 mmol/L Normal 3.5-5.1 [facility] Comment on above: Performed By: #### L 100.0500, L500.2500 ####[facility] [address] [place], [address] Sodium [Moles/Vol] 135 mmol/L Low 136-145 [facility] Comment on above: Performed By: #### L 100.0500, L500.2500 ####[facility] [address] [place], [address] Urea nitrogen [Mass/Vol] 47 mg/dL High 7-18 [facility] Comment on above: Performed By: #### L 100.0500, L500.2500 ####[facility] [address] [place], [address] Bedside Glucoseon 05-09-2024 FINGERSTICK GLU 176 mg/dL High 74-106 [facility] Comment on above: Result Comment: FANG GEMENT OF PATIENT CARE PER NURSING PROTOCOL Performed By: #### L 501.080 ####[facility] [address] [place], [address] FINGERSTICK GLU 264 mg/dL High 74-106 [facility] Comment on above: Result Comment: FANG GEMENT OF PATIENT CARE PER NURSING PROTOCOL Performed By: #### L 501.080 ####[facility] [address] [place], [address] FINGERSTICK GLU 90 mg/dL Normal 74-106 [facility] Comment on above: Result Comment: FANG GEMENT OF PATIENT CARE PER NURSING PROTOCOL Performed By: #### L 501.080 ####[facility] [address] [place], [address] CBC-Complete Blood Cnt No Di ffon 05-09-2024 Erythrocyte distribution width (RBC) [Ratio] 15.1 % High 11.6-14.6 [facility] Comment on above: Performed By: #### L 100.0500, L500.2500 ####[facility] [address] [place], [address] Hematocrit (Bld) [Volume fraction] 29.4 % Low 40-54 [facility] Comment on above: Performed By: #### L 100.0500, L500.2500 ####[facility] [address] [place], [address] Hemoglobin (Bld) [Mass/Vol] 8.7 g/dL Low 13.0-16.5 [facility] Comment on above: Performed By: #### L 100.0500, L500.2500 ####[facility] [address] [place], [address] MCH (RBC) [Entitic mass] 28.5 pg Normal 27.0-32.0 [facility] Comment on above: Performed By: #### L 100.0500, L500.2500 ####[facility] [address] [place], [address] MCHC (RBC) [Mass/Vol] 29.6 g/dL Low 32-36 [facility] Comment on above: Performed By: #### L 100.0500, L500.2500 ####[facility] [address] [place], [address] MCV (RBC) [Entitic vol] 96.4 fL High 80-94 [facility] Comment on above: Performed By: #### L 100.0500, L500.2500 ####[facility] [address] [place], [address] Platelet mean volume (Bld) [Entitic vol] 11.5 fL Normal 6.2-12.0 [facility] Comment on above: Performed By: #### L 100.0500, L500.2500 ####[facility] [address] [place], [address] Platelets (Bld) [#/Vol] 206 10*3/uL Normal 150-450 [facility] Comment on above: Performed By: #### L 100.0500, L500.2500 ####[facility] [address] [place], [address] RBC (Bld) [#/Vol] 3.05 10*6/uL Low 4.6-6.2 [facility] Comment on above: Performed By: #### L 100.0500, L500.2500 ####[facility] [address] [place], [address] RDW SD 53.7 fl High 35.1-43.9 [facility] Comment on above: Performed By: #### L 100.0500, L500.2500 ####[facility] [address] [place], [address] WBC (Bld) [#/Vol] 10.1 10*3/uL Normal 4.4-11.0 [facility] Comment on above: Performed By: #### L 100.0500, L500.2500 ####[facility] [address] [place], [address] Basic Metabolic Profile (BMP )on 05-08-2024 BUN/CRE 12.0 RATIO Normal 10-20 [facility] Comment on above: Performed By: #### L 500.2500, L100.0500 ####[facility] [address] [place], [address] CA,Total 8.5 mg/dL Normal 8.5-10.1 [facility] Comment on above: Performed By: #### L 500.2500, L100.0500 ####[facility] [address] [place], [address] Chloride [Moles/Vol] 99 mmol/L Normal 98-107 [facility] Comment on above: Performed By: #### L 500.2500, L100.0500 ####[facility] [address] [place], [address] CO2 [Moles/Vol] 27.0 mmol/L Normal 21.0-32.0 [facility] Comment on above: Performed By: #### L 500.2500, L100.0500 ####[facility] [address] [place], [address] Creatinine [Mass/Vol] 6.26 mg/dL High 0.70-1.30 [facility] Comment on above: Result Comment: The validity of the calculated GFR GFRAA in patients over70 years has not been determined. Clinical correlation isessential. Performed By: #### L 500.2500, L100.0500 ####[facility] [address] [place], [address] ECRCL 9.02 ml/min Normal [facility] Comment on above: Performed By: #### L 500.2500, L100.0500 ####[facility] [address] [place], [address] EST GFR - AA 11 mL/min Low >60 [facility] Comment on above: Result Comment: Afri can [place] GFR Calc Performed By: #### L 500.2500, L100.0500 ####[facility] [address] [place], [address] GAP 7 Normal 5-15 [facility] Comment on above: Performed By: #### L 500.2500, L100.0500 ####[facility] [address] [place], [address] GFR/1.73 sq M.predicted among non-blacks MDRD (S/P/Bld) [Vol rate/Area] 9 mL/min/{1.73_m2} Low >60 [facility] Comment on above: Result Comment: Non- GFR Calc Performed By: #### L 500.2500, L100.0500 ####[facility] [address] [place], [address] Glucose [Mass/Vol] 198 mg/dL High 74-106 [facility] Comment on above: Result Comment: Fast ing Glucose result greater than or equal to 126 mg/dLsuggests DIABETES MELLITUS per A.D.A. criteria. Performed By: #### L 500.2500, L100.0500 ####[facility] [address] [place], [address] Potassium [Moles/Vol] 4.9 mmol/L Normal 3.5-5.1 [facility] Comment on above: Performed By: #### L 500.2500, L100.0500 ####[facility] [address] [place], [address] Sodium [Moles/Vol] 133 mmol/L Low 136-145 [facility] Comment on above: Performed By: #### L 500.2500, L100.0500 ####[facility] [address] [place], [address] Urea nitrogen [Mass/Vol] 75 mg/dL High 7-18 [facility] Comment on above: Performed By: #### L 500.2500, L100.0500 ####[facility] [address] [place], [address] Bedside Glucoseon 05-08-2024 FINGERSTICK GLU 154 mg/dL High 74-106 [facility] Comment on above: Result Comment: FANG VAZQUEZ OF PATIENT CARE PER NURSING PROTOCOL Performed By: #### L 501.080 ####[facility] [address] [place], [address] FINGERSTICK GLU 212 mg/dL High 74-106 [facility] Comment on above: Result Comment: FANG GEMENT OF PATIENT CARE PER NURSING PROTOCOL Performed By: #### L 501.080 ####[facility] [address] [place], [address] FINGERSTICK GLU 194 mg/dL High 74-106 [facility] Comment on above: Result Comment: FANG GEMENT OF PATIENT CARE PER NURSING PROTOCOL Performed By: #### L 501.080 ####[facility] [address] [place], [address] CBC-Complete Blood Cnt No Di ffon 05-08-2024 Erythrocyte distribution width (RBC) [Ratio] 14.9 % High 11.6-14.6 [facility] Comment on above: Performed By: #### L 500.2500, L100.0500 ####[facility] [address] [place], [address] Hematocrit (Bld) [Volume fraction] 29.5 % Low 40-54 [facility] Comment on above: Performed By: #### L 500.2500, L100.0500 ####[facility] [address] [place], [address] Hemoglobin (Bld) [Mass/Vol] 8.8 g/dL Low 13.0-16.5 [facility] Comment on above: Performed By: #### L 500.2500, L100.0500 ####[facility] [address] [place], [address] MCH (RBC) [Entitic mass] 28.9 pg Normal 27.0-32.0 [facility] Comment on above: Performed By: #### L 500.2500, L100.0500 ####[facility] [address] [place], [address] MCHC (RBC) [Mass/Vol] 29.8 g/dL Low 32-36 [facility] Comment on above: Performed By: #### L 500.2500, L100.0500 ####[facility] [address] [place], [address] MCV (RBC) [Entitic vol] 97.0 fL High 80-94 [facility] Comment on above: Performed By: #### L 500.2500, L100.0500 ####[facility] [address] [place], [address] Platelet mean volume (Bld) [Entitic vol] 11.3 fL Normal 6.2-12.0 [facility] Comment on above: Performed By: #### L 500.2500, L100.0500 ####[facility] [address] [place], [address] Platelets (Bld) [#/Vol] 210 10*3/uL Normal 150-450 [facility] Comment on above: Performed By: #### L 500.2500, L100.0500 ####[facility] [address] [place], [address] RBC (Bld) [#/Vol] 3.04 10*6/uL Low 4.6-6.2 [facility] Comment on above: Performed By: #### L 500.2500, L100.0500 ####[facility] [address] [place], [address] RDW SD 52.8 fl High 35.1-43.9 [facility] Comment on above: Performed By: #### L 500.2500, L100.0500 ####[facility] [address] [place], [address] WBC (Bld) [#/Vol] 9.7 10*3/uL Normal 4.4-11.0 [facility] Comment on above: Performed By: #### L 500.2500, L100.0500 ####[facility] [address] [place], [address] Consultation - Infectious Dx on 05-08-2024 Consultation - Infectious Dx Normal [facility] Gram Stainon 05-08-2024 GS COLLECTED IN OR RIGH T HALLUX AND 1ST METATARSAL Gram Stain Rare White Blood Cells Rare Gram positive cocci No Epithelial cells Normal [facility] Comment on above: Performed By: #### M 100.2000, M100.3000, M100.4001 ####[facility] [address] [place], [address] Basic Metabolic Profile (BMP )on 05-07-2024 BUN/CRE 12.3 RATIO Normal 10-20 [facility] Comment on above: Performed By: #### L 500.2500, L100.0500 ####[facility] [address] [place], [address] CA,Total 8.7 mg/dL Normal 8.5-10.1 [facility] Comment on above: Performed By: #### L 500.2500, L100.0500 ####[facility] [address] [place], [address] Chloride [Moles/Vol] 100 mmol/L Normal 98-107 [facility] Comment on above: Performed By: #### L 500.2500, L100.0500 ####[facility] [address] [place], [address] CO2 [Moles/Vol] 28.0 mmol/L Normal 21.0-32.0 [facility] Comment on above: Performed By: #### L 500.2500, L100.0500 ####[facility] [address] [place], [address] Creatinine [Mass/Vol] 5.45 mg/dL High 0.70-1.30 [facility] Comment on above: Result Comment: The validity of the calculated GFR GFRAA in patients over70 years has not been determined. Clinical correlation isessential. Performed By: #### L 500.2500, L100.0500 ####[facility] [address] [place], [address] ECRCL 10.36 ml/min Normal [facility] Comment on above: Performed By: #### L 500.2500, L100.0500 ####[facility] [address] [place], [address] EST GFR - AA 13 mL/min Low >60 [facility] Comment on above: Result Comment: Afri can [place] GFR Calc Performed By: #### L 500.2500, L100.0500 ####[facility] [address] [place], [address] GAP 6 Normal 5-15 [facility] Comment on above: Performed By: #### L 500.2500, L100.0500 ####[facility] [address] [place], [address] GFR/1.73 sq M.predicted among non-blacks MDRD (S/P/Bld) [Vol rate/Area] 11 mL/min/{1.73_m2} Low >60 [facility] Comment on above: Result Comment: Non- GFR Calc Performed By: #### L 500.2500, L100.0500 ####[facility] [address] [place], [address] Glucose [Mass/Vol] 131 mg/dL High 74-106 [facility] Comment on above: Result Comment: Fast ing Glucose result greater than or equal to 126 mg/dLsuggests DIABETES MELLITUS per A.D.A. criteria. Performed By: #### L 500.2500, L100.0500 ####[facility] [address] [place], [address] Potassium [Moles/Vol] 4.6 mmol/L Normal 3.5-5.1 [facility] Comment on above: Performed By: #### L 500.2500, L100.0500 ####[facility] [address] [place], [address] Sodium [Moles/Vol] 134 mmol/L Low 136-145 [facility] Comment on above: Performed By: #### L 500.2500, L100.0500 ####[facility] [address] [place], [address] Urea nitrogen [Mass/Vol] 67 mg/dL High 7-18 [facility] Comment on above: Performed By: #### L 500.2500, L100.0500 ####[facility] [address] [place], [address] Bedside Glucoseon 05-07-2024 FINGERSTICK GLU 148 mg/dL High 74-106 [facility] Comment on above: Result Comment: FANG GEMENT OF PATIENT CARE PER NURSING PROTOCOL Performed By: #### L 501.080 ####[facility] [address] [place], [address] FINGERSTICK GLU 102 mg/dL Normal 74-106 [facility] Comment on above: Result Comment: FANG GEMENT OF PATIENT CARE PER NURSING PROTOCOL Performed By: #### L 501.080 ####[facility] [address] [place], [address] FINGERSTICK GLU 120 mg/dL High 74-106 [facility] Comment on above: Result Comment: FANG GEMENT OF PATIENT CARE PER NURSING PROTOCOL Performed By: #### L 501.080 ####[facility] [address] [place], [address] CBC-Complete Blood Cnt No Di ffon 05-07-2024 Erythrocyte distribution width (RBC) [Ratio] 15.0 % High 11.6-14.6 [facility] Comment on above: Performed By: #### L 500.2500, L100.0500 ####[facility] [address] [place], [address] Hematocrit (Bld) [Volume fraction] 29.8 % Low 40-54 [facility] Comment on above: Performed By: #### L 500.2500, L100.0500 ####[facility] [address] [place], [address] Hemoglobin (Bld) [Mass/Vol] 9.1 g/dL Low 13.0-16.5 [facility] Comment on above: Performed By: #### L 500.2500, L100.0500 ####[facility] [address] [place], [address] MCH (RBC) [Entitic mass] 29.6 pg Normal 27.0-32.0 [facility] Comment on above: Performed By: #### L 500.2500, L100.0500 ####[facility] [address] [place], [address] MCHC (RBC) [Mass/Vol] 30.5 g/dL Low 32-36 [facility] Comment on above: Performed By: #### L 500.2500, L100.0500 ####[facility] [address] [place], [address] MCV (RBC) [Entitic vol] 97.1 fL High 80-94 [facility] Comment on above: Performed By: #### L 500.2500, L100.0500 ####[facility] [address] [place], [address] Platelet mean volume (Bld) [Entitic vol] 11.0 fL Normal 6.2-12.0 [facility] Comment on above: Performed By: #### L 500.2500, L100.0500 ####[facility] [address] [place], [address] Platelets (Bld) [#/Vol] 223 10*3/uL Normal 150-450 [facility] Comment on above: Performed By: #### L 500.2500, L100.0500 ####[facility] [address] [place], [address] RBC (Bld) [#/Vol] 3.07 10*6/uL Low 4.6-6.2 [facility] Comment on above: Performed By: #### L 500.2500, L100.0500 ####[facility] [address] [place], [address] RDW SD 53.1 fl High 35.1-43.9 [facility] Comment on above: Performed By: #### L 500.2500, L100.0500 ####[facility] [address] [place], [address] WBC (Bld) [#/Vol] 8.1 10*3/uL Normal 4.4-11.0 [facility] Comment on above: Performed By: #### L 500.2500, L100.0500 ####[facility] [address] [place], [address] Decalcification bone/plaqueo n 05-07-2024 Decalcification bone/plaque Normal [facility] Comment on above: Performed By: #### P DEC ####[facility] [address] [place], [address] Foot 2 Viewson 05-07-2024 Foot 2 Views Normal [facility] MR/POSTOP.ANEon 05-07-2024 MR/POSTOP.ANE Normal [facility] MR/XFVCFMDB4ez 05-07-2024 MR/POSTOPAN2 Normal [facility] Operative Reporton Operative Report Normal [facility] Basic Metabolic Profile (BMP )on 05-06-2024 BUN/CRE 11.3 RATIO Normal 10-20 [facility] Comment on above: Performed By: #### L 500.2500, L100.0500 ####[facility] [address] [place], [address] CA,Total 8.9 mg/dL Normal 8.5-10.1 [facility] Comment on above: Performed By: #### L 500.2500, L100.0500 ####[facility] [address] [place], [address] Chloride [Moles/Vol] 99 mmol/L Normal 98-107 [facility] Comment on above: Performed By: #### L 500.2500, L100.0500 ####[facility] [address] [place], [address] CO2 [Moles/Vol] 27.0 mmol/L Normal 21.0-32.0 [facility] Comment on above: Performed By: #### L 500.2500, L100.0500 ####[facility] [address] [place], [address] Creatinine [Mass/Vol] 4.26 mg/dL High 0.70-1.30 [facility] Comment on above: Result Comment: The validity of the calculated GFR GFRAA in patients over70 years has not been determined. Clinical correlation isessential. Performed By: #### L 500.2500, L100.0500 ####[facility] [address] [place], [address] ECRCL 13.25 ml/min Normal [facility] Comment on above: Performed By: #### L 500.2500, L100.0500 ####[facility] [address] [place], [address] EST GFR - AA 17 mL/min Low >60 [facility] Comment on above: Result Comment: Afri can [place] GFR Calc Performed By: #### L 500.2500, L100.0500 ####[facility] [address], [address] GAP 7 Normal 5-15 [facility] Comment on above: Performed By: #### L 500.2500, L100.0500 ####[facility] [address] [place], [address] GFR/1.73 sq M.predicted among non-blacks MDRD (S/P/Bld) [Vol rate/Area] 14 mL/min/{1.73_m2} Low >60 [facility] Comment on above: Result Comment: Non- GFR Calc Performed By: #### L 500.2500, L100.0500 ####[facility] [address] [place], [address] Glucose [Mass/Vol] 181 mg/dL High 74-106 [facility] Comment on above: Result Comment: Fast ing Glucose result greater than or equal to 126 mg/dLsuggests DIABETES MELLITUS per A.D.A. criteria. Performed By: #### L 500.2500, L100.0500 ####[facility] [address] [place], [address] Potassium [Moles/Vol] 4.3 mmol/L Normal 3.5-5.1 [facility] Comment on above: Performed By: #### L 500.2500, L100.0500 ####[facility] [address] [place], [address] Sodium [Moles/Vol] 133 mmol/L Low 136-145 [facility] Comment on above: Performed By: #### L 500.2500, L100.0500 ####[facility] [address] [place], [address] Urea nitrogen [Mass/Vol] 48 mg/dL High 7-18 [facility] Comment on above: Performed By: #### L 500.2500, L100.0500 ####[facility] [address] [place], [address] Bedside Glucoseon 05-06-2024 FINGERSTICK GLU 215 mg/dL High 74-106 [facility] Comment on above: Result Comment: FANG GEMENT OF PATIENT CARE PER NURSING PROTOCOL Performed By: #### L 501.080 ####[facility] [address] [place], [address] FINGERSTICK GLU 142 mg/dL High 74-106 [facility] Comment on above: Result Comment: FANG GEMENT OF PATIENT CARE PER NURSING PROTOCOL Performed By: #### L 501.080 ####[facility] [address] [place], [address] FINGERSTICK GLU 228 mg/dL High 74-106 [facility] Comment on above: Result Comment: FANG GEMENT OF PATIENT CARE PER NURSING PROTOCOL Performed By: #### L 501.080 ####[facility] [address] [place], [address] CBC-Complete Blood Cnt No Di ffon 05-06-2024 Erythrocyte distribution width (RBC) [Ratio] 15.1 % High 11.6-14.6 [facility] Comment on above: Performed By: #### L 500.2500, L100.0500 ####[facility] [address] [place], [address] Hematocrit (Bld) [Volume fraction] 32.3 % Low 40-54 [facility] Comment on above: Performed By: #### L 500.2500, L100.0500 ####[facility] [address] [place], [address] Hemoglobin (Bld) [Mass/Vol] 9.7 g/dL Low 13.0-16.5 [facility] Comment on above: Performed By: #### L 500.2500, L100.0500 ####[facility] [address] [place], [address] MCH (RBC) [Entitic mass] 29.2 pg Normal 27.0-32.0 [facility] Comment on above: Performed By: #### L 500.2500, L100.0500 ####[facility] [address] [place], [address] MCHC (RBC) [Mass/Vol] 30.0 g/dL Low 32-36 [facility] Comment on above: Performed By: #### L 500.2500, L100.0500 ####[facility] [address] [place], [address] MCV (RBC) [Entitic vol] 97.3 fL High 80-94 [facility] Comment on above: Performed By: #### L 500.2500, L100.0500 ####[facility] [address] [place], [address] Platelet mean volume (Bld) [Entitic vol] 11.1 fL Normal 6.2-12.0 [facility] Comment on above: Performed By: #### L 500.2500, L100.0500 ####[facility] [address] [place], [address] Platelets (Bld) [#/Vol] 238 10*3/uL Normal 150-450 [facility] Comment on above: Performed By: #### L 500.2500, L100.0500 ####[facility] [address] [place], [address] RBC (Bld) [#/Vol] 3.32 10*6/uL Low 4.6-6.2 [facility] Comment on above: Performed By: #### L 500.2500, L100.0500 ####[facility] [address] [place], [address] RDW SD 54.1 fl High 35.1-43.9 [facility] Comment on above: Performed By: #### L 500.2500, L100.0500 ####[facility] [address] [place], [address] WBC (Bld) [#/Vol] 8.5 10*3/uL Normal 4.4-11.0 [facility] Comment on above: Performed By: #### L 500.2500, L100.0500 ####[facility] [address] [place], [address] Basic Metabolic Profile (BMP )on 05-05-2024 BUN/CRE 9.2 RATIO Low 10-20 [facility] Comment on above: Performed By: #### L 100.0100, L500.2500 ####[facility] [address] [place], [address] CA,Total 8.9 mg/dL Normal 8.5-10.1 [facility] Comment on above: Performed By: #### L 100.0100, L500.2500 ####[facility] [address] [place], [address] Chloride [Moles/Vol] 95 mmol/L Low 98-107 [facility] Comment on above: Performed By: #### L 100.0100, L500.2500 ####[facility] [address] [place], [address] CO2 [Moles/Vol] 30.0 mmol/L Normal 21.0-32.0 [facility] Comment on above: Performed By: #### L 100.0100, L500.2500 ####[facility] [address] [place], [address] Creatinine [Mass/Vol] 5.32 mg/dL High 0.70-1.30 [facility] Comment on above: Result Comment: The validity of the calculated GFR GFRAA in patients over70 years has not been determined. Clinical correlation isessential. Performed By: #### L 100.0100, L500.2500 ####[facility] [address] [place], [address] ECRCL 10.63 ml/min Normal [facility] Comment on above: Performed By: #### L 100.0100, L500.2500 ####[facility] [address] [place], [address] EST GFR - AA 13 mL/min Low >60 [facility] Comment on above: Result Comment: Afri can [place] GFR Calc Performed By: #### L 100.0100, L500.2500 ####[facility] [address] [place], [address] GAP 11 Normal 5-15 [facility] Comment on above: Performed By: #### L 100.0100, L500.2500 ####[facility] [address] [place], [address] GFR/1.73 sq M.predicted among non-blacks MDRD (S/P/Bld) [Vol rate/Area] 11 mL/min/{1.73_m2} Low >60 [facility] Comment on above: Result Comment: Non- GFR Calc Performed By: #### L 100.0100, L500.2500 ####[facility] [address] [place], [address] Glucose [Mass/Vol] 111 mg/dL High 74-106 [facility] Comment on above: Result Comment: Fast ing Glucose result from 100 to 125 mg/dLsuggests IMPAIRED HOMEOSTASIS per A.D.A. criteria. Performed By: #### L 100.0100, L500.2500 ####[facility] [address] [place], [address] Potassium [Moles/Vol] 3.9 mmol/L Normal 3.5-5.1 [facility] Comment on above: Performed By: #### L 100.0100, L500.2500 ####[facility] [address] [place], [address] Sodium [Moles/Vol] 135 mmol/L Low 136-145 [facility] Comment on above: Performed By: #### L 100.0100, L500.2500 ####[facility] [address] [place], [address] Urea nitrogen [Mass/Vol] 49 mg/dL High 7-18 [facility] Comment on above: Performed By: #### L 100.0100, L500.2500 ####[facility] [address] [place], [address] Bedside Glucoseon 05-05-2024 FINGERSTICK GLU 155 mg/dL High 74-106 [facility] Comment on above: Result Comment: FANG GEMENT OF PATIENT CARE PER NURSING PROTOCOL Performed By: #### L 501.080 ####[facility] [address] [place], [address] FINGERSTICK GLU 210 mg/dL High 74-106 [facility] Comment on above: Result Comment: FANG GEMENT OF PATIENT CARE PER NURSING PROTOCOL Performed By: #### L 501.080 ####[facility] [address] [place], [address] FINGERSTICK GLU 202 mg/dL High 74-106 [facility] Comment on above: Result Comment: FANG GEMENT OF PATIENT CARE PER NURSING PROTOCOL Performed By: #### L 501.080 ####[facility] [address] [place], [address] FINGERSTICK GLU 136 mg/dL High 74-106 [facility] Comment on above: Result Comment: FANG GEMENT OF PATIENT CARE PER NURSING PROTOCOL Performed By: #### L 501.080 ####[facility] [address] [place], [address] FINGERSTICK GLU 171 mg/dL High 74-106 [facility] Comment on above: Result Comment: FANG GEMENT OF PATIENT CARE PER NURSING PROTOCOL Performed By: #### L 501.080 ####[facility] [address] [place], [address] CBC W/Diff, Automatedon 04-22 Absolute Lymph 2.35 X10 3/uL Normal 0.83-4.51 [facility] Comment on above: Performed By: #### L 100.0100, L500.2500 ####[facility] [address] [place], [address] Absolute Neut 6.8 X10 3/uL Normal 2.0-7.7 [facility] Comment on above: Performed By: #### L 100.0100, L500.2500 ####[facility] [address] [place], [address] Basophils/100 WBC (Bld) 0.8 % Normal 0-1 [facility] Comment on above: Performed By: #### L 100.0100, L500.2500 ####[facility] [address] [place], [address] Eosinophils/100 WBC (Bld) 3.1 % Normal 0-5 [facility] Comment on above: Performed By: #### L 100.0100, L500.2500 ####[facility] [address] [place], [address] Erythrocyte distribution width (RBC) [Ratio] 15.1 % High 11.6-14.6 [facility] Comment on above: Performed By: #### L 100.0100, L500.2500 ####[facility] [address] [place], [address] Hematocrit (Bld) [Volume fraction] 31.1 % Low 40-54 [facility] Comment on above: Performed By: #### L 100.0100, L500.2500 ####[facility] [address] [place], [address] Hemoglobin (Bld) [Mass/Vol] 9.4 g/dL Low 13.0-16.5 [facility] Comment on above: Performed By: #### L 100.0100, L500.2500 ####[facility] [address] [place], [address] IG% 0.600 Normal 0.0-0.9 [facility] Comment on above: Result Comment: IG% - Immature Granulocytes (promyelocytes, myelocytes andmetamyelocytes) > 1% indicates that a LEFT SHIFT is Present. Performed By: #### L 100.0100, L500.2500 ####[facility] [address] [place], [address] Lymphocytes/100 WBC (Bld) 22.1 % Normal 19-41 [facility] Comment on above: Performed By: #### L 100.0100, L500.2500 ####[facility] [address] [place], [address] MCH (RBC) [Entitic mass] 28.8 pg Normal 27.0-32.0 [facility] Comment on above: Performed By: #### L 100.0100, L500.2500 ####[facility] [address] [place], [address] MCHC (RBC) [Mass/Vol] 30.2 g/dL Low 32-36 [facility] Comment on above: Performed By: #### L 100.0100, L500.2500 ####[facility] [address] [place], [address] MCV (RBC) [Entitic vol] 95.4 fL High 80-94 [facility] Comment on above: Performed By: #### L 100.0100, L500.2500 ####[facility] [address] [place], [address] Monocytes/100 WBC (Bld) 9.2 % Normal 0-10 [facility] Comment on above: Performed By: #### L 100.0100, L500.2500 ####[facility] [address] [place], [address] Neutrophils/100 WBC (Bld) 64.2 % Normal 47-70 [facility] Comment on above: Performed By: #### L 100.0100, L500.2500 ####[facility] [address] [place], [address] Nucleated RBC (Bld) [#/Vol] 0 10*3/uL Normal 0-5 [facility] Comment on above: Performed By: #### L 100.0100, L500.2500 ####[facility] [address], [address] Platelet mean volume (Bld) [Entitic vol] 11.2 fL Normal 6.2-12.0 [facility] Comment on above: Performed By: #### L 100.0100, L500.2500 ####[facility] [address] [place], [address] Platelets (Bld) [#/Vol] 263 10*3/uL Normal 150-450 [facility] Comment on above: Performed By: #### L 100.0100, L500.2500 ####[facility] [address] [place], [address] RBC (Bld) [#/Vol] 3.26 10*6/uL Low 4.6-6.2 [facility] Comment on above: Performed By: #### L 100.0100, L500.2500 ####[facility] [address] [place], [address] RDW SD 52.6 fl High 35.1-43.9 [facility] Comment on above: Performed By: #### L 100.0100, L500.2500 ####[facility] [address] [place], [address] WBC (Bld) [#/Vol] 10.6 10*3/uL Normal 4.4-11.0 [facility] Comment on above: Performed By: #### L 100.0100, L500.2500 ####[facility] [address] [place], [address] Consultation - Nephrologyon 05-05-2024 Consultation - Nephrology Normal [facility] 12 Lead EKGon 05-04-2024 12 Lead EKG Normal [facility] Ankle Brachial Indexon 05-04 Ankle Brachial Index Normal [facility] Basic Metabolic Profile (BMP )on 05-04-2024 BUN/CRE 6.8 RATIO Low 10-20 [facility] Comment on above: Performed By: #### L 100.0100, L500.2500, L501.6710, L101.9900 ####[facility] [address] [place], [address] CA,Total 9.4 mg/dL Normal 8.5-10.1 [facility] Comment on above: Performed By: #### L 100.0100, L500.2500, L501.6710, L101.9900 ####[facility] [address] [place], [address] Chloride [Moles/Vol] 94 mmol/L Low 98-107 [facility] Comment on above: Performed By: #### L 100.0100, L500.2500, L501.6710, L101.9900 ####[facility] [address] [place], [address] CO2 [Moles/Vol] 31.0 mmol/L Normal 21.0-32.0 [facility] Comment on above: Performed By: #### L 100.0100, L500.2500, L501.6710, L101.9900 ####[facility] [address] [place], [address] Creatinine [Mass/Vol] 4.58 mg/dL High 0.70-1.30 [facility] Comment on above: Result Comment: The validity of the calculated GFR GFRAA in patients over70 years has not been determined. Clinical correlation isessential. Performed By: #### L 100.0100, L500.2500, L501.6710, L101.9900 ####[facility] [address] [place], [address] ECRCL 13.00 ml/min Normal [facility] Comment on above: Performed By: #### L 100.0100, L500.2500, L501.6710, L101.9900 ####[facility] [address] [place], [address] EST GFR - AA 16 mL/min Low >60 [facility] Comment on above: Result Comment: Afri can [place] GFR Calc Performed By: #### L 100.0100, L500.2500, L501.6710, L101.9900 ####[facility] [address] [place], [address] GAP 7 Normal 5-15 [facility] Comment on above: Performed By: #### L 100.0100, L500.2500, L501.6710, L101.9900 ####[facility] [address] [place], [address] GFR/1.73 sq M.predicted among non-blacks MDRD (S/P/Bld) [Vol rate/Area] 13 mL/min/{1.73_m2} Low >60 [facility] Comment on above: Result Comment: Non- GFR Calc Performed By: #### L 100.0100, L500.2500, L501.6710, L101.9900 ####[facility] [address] [place], [address] Glucose [Mass/Vol] 297 mg/dL High 74-106 [facility] Comment on above: Result Comment: Gluc ose result greater than or equal to 200 mg/dLsuggests DIABETES MELLITUS per A.D.A. criteria. Performed By: #### L 100.0100, L500.2500, L501.6710, L101.9900 ####[facility] [address] [place], [address] Potassium [Moles/Vol] 3.7 mmol/L Normal 3.5-5.1 [facility] Comment on above: Performed By: #### L 100.0100, L500.2500, L501.6710, L101.9900 ####[facility] [address] [place], [address] Sodium [Moles/Vol] 133 mmol/L Low 136-145 [facility] Comment on above: Performed By: #### L 100.0100, L500.2500, L501.6710, L101.9900 ####[facility] [address] [place], [address] Urea nitrogen [Mass/Vol] 31 mg/dL High 7-18 [facility] Comment on above: Performed By: #### L 100.0100, L500.2500, L501.6710, L101.9900 ####[facility] [address] [place], [address] Bedside Glucoseon 05-04-2024 FINGERSTICK GLU 342 mg/dL High 74-106 [facility] Comment on above: Result Comment: FANG ROLANDOENT OF PATIENT CARE PER NURSING PROTOCOL Performed By: #### L 501.080 ####[facility] [address] [place], [address] CBC W/Diff, Automatedon 04-22 Absolute Lymph 2.08 X10 3/uL Normal 0.83-4.51 [facility] Comment on above: Performed By: #### L 100.0100, L500.2500, L501.6710, L101.9900 ####[facility] [address] [place], [address] Absolute Neut 5.8 X10 3/uL Normal 2.0-7.7 [facility] Comment on above: Performed By: #### L 100.0100, L500.2500, L501.6710, L101.9900 ####[facility] [address] [place], [address] Basophils/100 WBC (Bld) 1.0 % Normal 0-1 [facility] Comment on above: Performed By: #### L 100.0100, L500.2500, L501.6710, L101.9900 ####[facility] [address] [place], [address] Eosinophils/100 WBC (Bld) 2.4 % Normal 0-5 [facility] Comment on above: Performed By: #### L 100.0100, L500.2500, L501.6710, L101.9900 ####[facility] [address] [place], [address] Erythrocyte distribution width (RBC) [Ratio] 15.4 % High 11.6-14.6 [facility] Comment on above: Performed By: #### L 100.0100, L500.2500, L501.6710, L101.9900 ####[facility] [address] [place], [address] Hematocrit (Bld) [Volume fraction] 36.7 % Low 40-54 [facility] Comment on above: Performed By: #### L 100.0100, L500.2500, L501.6710, L101.9900 ####[facility] [address] [place], [address] Hemoglobin (Bld) [Mass/Vol] 11.3 g/dL Low 13.0-16.5 [facility] Comment on above: Performed By: #### L 100.0100, L500.2500, L501.6710, L101.9900 ####[facility] [address] [place], [address] IG% 0.800 Normal 0.0-0.9 [facility] Comment on above: Result Comment: IG% - Immature Granulocytes (promyelocytes, myelocytes andmetamyelocytes) > 1% indicates that a LEFT SHIFT is Present. Performed By: #### L 100.0100, L500.2500, L501.6710, L101.9900 ####[facility] [address] [place], [address] Lymphocytes/100 WBC (Bld) 22.5 % Normal 19-41 [facility] Comment on above: Performed By: #### L 100.0100, L500.2500, L501.6710, L101.9900 ####[facility] [address] [place], [address] MCH (RBC) [Entitic mass] 29.3 pg Normal 27.0-32.0 [facility] Comment on above: Performed By: #### L 100.0100, L500.2500, L501.6710, L101.9900 ####[facility] [address] [place], [address] MCHC (RBC) [Mass/Vol] 30.8 g/dL Low 32-36 [facility] Comment on above: Performed By: #### L 100.0100, L500.2500, L501.6710, L101.9900 ####[facility] [address] [place], [address] MCV (RBC) [Entitic vol] 95.1 fL High 80-94 [facility] Comment on above: Performed By: #### L 100.0100, L500.2500, L501.6710, L101.9900 ####[facility] [address] [place], [address] Monocytes/100 WBC (Bld) 10.2 % High 0-10 [facility] Comment on above: Performed By: #### L 100.0100, L500.2500, L501.6710, L101.9900 ####[facility] [address] [place], [address] Neutrophils/100 WBC (Bld) 63.1 % Normal 47-70 [facility] Comment on above: Performed By: #### L 100.0100, L500.2500, L501.6710, L101.9900 ####[facility] [address] [place], [address] Nucleated RBC (Bld) [#/Vol] 0 10*3/uL Normal 0-5 [facility] Comment on above: Performed By: #### L 100.0100, L500.2500, L501.6710, L101.9900 ####[facility] [address] [place], [address] Platelet mean volume (Bld) [Entitic vol] 11.4 fL Normal 6.2-12.0 [facility] Comment on above: Performed By: #### L 100.0100, L500.2500, L501.6710, L101.9900 ####[facility] [address] [place], [address] Platelets (Bld) [#/Vol] 288 10*3/uL Normal 150-450 [facility] Comment on above: Performed By: #### L 100.0100, L500.2500, L501.6710, L101.9900 ####[facility] [address] [place], [address] RBC (Bld) [#/Vol] 3.86 10*6/uL Low 4.6-6.2 [facility] Comment on above: Performed By: #### L 100.0100, L500.2500, L501.6710, L101.9900 ####[facility] [address] [place], [address] RDW SD 53.0 fl High 35.1-43.9 [facility] Comment on above: Performed By: #### L 100.0100, L500.2500, L501.6710, L101.9900 ####[facility] [address] [place], [address] WBC (Bld) [#/Vol] 9.2 10*3/uL Normal 4.4-11.0 [facility] Comment on above: Performed By: #### L 100.0100, L500.2500, L501.6710, L101.9900 ####[facility] [address] [place], [address] CRPon 05-04-2024 C-REACTIVE PROT 72.90 mg/L High 0.0-3.0 [facility] Comment on above: Result Comment: C-Re active Protein (CRP) provides useful information for thediagnosis, therapy and monitoring of inflammatory processesand associated diseases. For the evaluation of Relative Riskfor Cardiovascular Disease, a High Sensitivity CRP (HSCRP)should be ordered. Performed By: #### L 100.0100, L500.2500, L501.6710, L101.9900 ####[facility] [address] [place], [address] Consultation - Surgicalon Consultation - Surgical Normal [facility] Emergency Department Summary on 05-04-2024 Emergency Department Summary Normal [facility] Erythrocyte Sed Rateon 05-04 SED RATE 81 mm/hr High 0-20 [facility] Comment on above: Performed By: #### L 100.0100, L500.2500, L501.6710, L101.9900 ####[facility] [address] [place], [address] Foot min 3 Viewson 4 Foot min 3 Views Normal [facility] H AND P Exam - Hospitaliston 05-04-2024 H&P Exam - Hospitalist Normal [facility] US Art Duplex Unilat Lower E xton 05-04-2024 US Art Duplex Unilat Lower Ext Normal [facility] Basic Metabolic Profile (BMP )on 05-02-2024 BUN/CRE 6.9 RATIO Low 10-20 [facility] Comment on above: Order Comment: 107.2 Performed By: #### L 100.0500, L500.2500 ####[facility] [address] [place], [address] CA,Total 8.8 mg/dL Normal 8.5-10.1 [facility] Comment on above: Order Comment: 107.2 Performed By: #### L 100.0500, L500.2500 ####[facility] [address] [place], [address] Chloride [Moles/Vol] 96 mmol/L Low 98-107 [facility] Comment on above: Order Comment: 107.2 Performed By: #### L 100.0500, L500.2500 ####[facility] [address] [place], [address] CO2 [Moles/Vol] 30.0 mmol/L Normal 21.0-32.0 [facility] Comment on above: Order Comment: 107.2 Performed By: #### L 100.0500, L500.2500 ####[facility] [address] [place], [address] Creatinine [Mass/Vol] 4.34 mg/dL High 0.70-1.30 [facility] Comment on above: Order Comment: 107.2 Result Comment: The validity of the calculated GFR GFRAA in patients over70 years has not been determined. Clinical correlation isessential. Performed By: #### L 100.0500, L500.2500 ####[facility] [address] [place], [address] EST GFR - AA 17 mL/min Low >60 [facility] Comment on above: Order Comment: 107.2 Result Comment: Afri can [place] GFR Calc Performed By: #### L 100.0500, L500.2500 ####[facility] [address] [place], [address] GAP 7 Normal 5-15 [facility] Comment on above: Order Comment: 107.2 Performed By: #### L 100.0500, L500.2500 ####[facility] [address] [place], [address] GFR/1.73 sq M.predicted among non-blacks MDRD (S/P/Bld) [Vol rate/Area] 14 mL/min/{1.73_m2} Low >60 [facility] Comment on above: Order Comment: 107.2 Result Comment: Non- GFR Calc Performed By: #### L 100.0500, L500.2500 ####[facility] [address] [place], [address] Glucose [Mass/Vol] 138 mg/dL High 74-106 [facility] Comment on above: Order Comment: 107.2 Result Comment: Fast ing Glucose result greater than or equal to 126 mg/dLsuggests DIABETES MELLITUS per A.D.A. criteria. Performed By: #### L 100.0500, L500.2500 ####[facility] [address] [place], [address] Potassium [Moles/Vol] 3.6 mmol/L Normal 3.5-5.1 [facility] Comment on above: Order Comment: 107.2 Performed By: #### L 100.0500, L500.2500 ####[facility] [address] [place], [address] Sodium [Moles/Vol] 133 mmol/L Low 136-145 [facility] Comment on above: Order Comment: 107.2 Performed By: #### L 100.0500, L500.2500 ####[facility] [address] [place], [address] Urea nitrogen [Mass/Vol] 30 mg/dL High 7-18 [facility] Comment on above: Order Comment: 107.2 Performed By: #### L 100.0500, L500.2500 ####[facility] [address] [place], [address] CBC-Complete Blood Cnt No Di ffon 05-02-2024 Erythrocyte distribution width (RBC) [Ratio] 15.1 % High 11.6-14.6 [facility] Comment on above: Order Comment: 107.2 Performed By: #### L 100.0500, L500.2500 ####[facility] [address], [address] Hematocrit (Bld) [Volume fraction] 29.9 % Low 40-54 [facility] Comment on above: Order Comment: 107.2 Performed By: #### L 100.0500, L500.2500 ####[facility] [address] [place], [address] Hemoglobin (Bld) [Mass/Vol] 9.6 g/dL Low 13.0-16.5 [facility] Comment on above: Order Comment: 107.2 Performed By: #### L 100.0500, L500.2500 ####[facility] [address] [place], [address] MCH (RBC) [Entitic mass] 30.2 pg Normal 27.0-32.0 [facility] Comment on above: Order Comment: 107.2 Performed By: #### L 100.0500, L500.2500 ####[facility] [address] [place], [address] MCHC (RBC) [Mass/Vol] 32.1 g/dL Normal 32-36 [facility] Comment on above: Order Comment: 107.2 Performed By: #### L 100.0500, L500.2500 ####[facility] [address] [place], [address] MCV (RBC) [Entitic vol] 94.0 fL Normal 80-94 [facility] Comment on above: Order Comment: 107.2 Performed By: #### L 100.0500, L500.2500 ####[facility] [address] [place], [address] Platelet mean volume (Bld) [Entitic vol] 10.9 fL Normal 6.2-12.0 [facility] Comment on above: Order Comment: 107.2 Performed By: #### L 100.0500, L500.2500 ####[facility] [address] [place], [address] Platelets (Bld) [#/Vol] 275 10*3/uL Normal 150-450 [facility] Comment on above: Order Comment: 107.2 Performed By: #### L 100.0500, L500.2500 ####[facility] [address] [place], [address] RBC (Bld) [#/Vol] 3.18 10*6/uL Low 4.6-6.2 [facility] Comment on above: Order Comment: 107.2 Performed By: #### L 100.0500, L500.2500 ####[facility] [address] [place], [address] RDW SD 52.3 fl High 35.1-43.9 [facility] Comment on above: Order Comment: 107.2 Performed By: #### L 100.0500, L500.2500 ####[facility] [address] [place], [address] WBC (Bld) [#/Vol] 8.9 10*3/uL Normal 4.4-11.0 [facility] Comment on above: Order Comment: 107.2 Performed By: #### L 100.0500, L500.2500 ####[facility] [address] [place], [address] Wound Cultureon 05-01-2024 WC Normal [facility] Comment on above: Performed By: #### M 100.2000, M100.4001, M100.3000 ####[facility] [address] [place], [address] Bedside Glucoseon 04-24-2024 FINGERSTICK GLU 202 mg/dL High [address] [place] [address] Comment on above: Result Comment: FANG GEMENT OF PATIENT CARE PER NURSING PROTOCOL Performed By: #### L 501.080 ####[facility] [address] [place], [address] FINGERSTICK GLU 139 mg/dL High [address] [place] [address] Comment on above: Result Comment: FANG GEMENT OF PATIENT CARE PER NURSING PROTOCOL Performed By: #### L 501.080 ####[facility] [address] [place], [address] FINGERSTICK GLU 153 mg/dL High [address] [place] [address] Comment on above: Result Comment: FANG GEMENT OF PATIENT CARE PER NURSING PROTOCOL Performed By: #### L 501.080 ####[facility] [address] [place], [address] FINGERSTICK GLU 250 mg/dL High [address] [place] [address] Comment on above: Result Comment: FANG GEMENT OF PATIENT CARE PER NURSING PROTOCOL Performed By: #### L 501.080 ####[facility] [address] [place], [address] Bedside Glucoseon 04-23-2024 FINGERSTICK GLU 311 mg/dL High [address] [place] [address] Comment on above: Result Comment: FANG GEMENT OF PATIENT CARE PER NURSING PROTOCOL Performed By: #### L 501.080 ####[facility] [address] [place], [address] FINGERSTICK GLU 252 mg/dL High 74-106 [facility] Comment on above: Result Comment: FANG GEMENT OF PATIENT CARE PER NURSING PROTOCOL Performed By: #### L 501.080 ####[facility] [address] [place], [address] FINGERSTICK GLU 173 mg/dL High 74-106 [facility] Comment on above: Result Comment: FANG GEMENT OF PATIENT CARE PER NURSING PROTOCOL Performed By: #### L 501.080 ####[facility] [address] [place], [address] CNPTOUTREACHon 04-23-2024 CNPTOUTREACH Normal [facility] Basic Metabolic Profile (BMP )on 04-22-2024 BUN/CRE 13.8 RATIO Normal 10-20 [facility] Comment on above: Performed By: #### L 100.0100, L500.2500 ####[facility] [address] [place], [address] CA,Total 8.5 mg/dL Normal 8.5-10.1 [facility] Comment on above: Performed By: #### L 100.0100, L500.2500 ####[facility] [address] [place], [address] Chloride [Moles/Vol] 100 mmol/L Normal 98-107 [facility] Comment on above: Performed By: #### L 100.0100, L500.2500 ####[facility] [address] [place], [address] CO2 [Moles/Vol] 25.0 mmol/L Normal 21.0-32.0 [facility] Comment on above: Performed By: #### L 100.0100, L500.2500 ####[facility] [address] [place], [address] Creatinine [Mass/Vol] 4.80 mg/dL High 0.70-1.30 [facility] Comment on above: Result Comment: The validity of the calculated GFR GFRAA in patients over70 years has not been determined. Clinical correlation isessential. Performed By: #### L 100.0100, L500.2500 ####[facility] [address] [place], [address] ECRCL 12.57 ml/min Normal [facility] Comment on above: Performed By: #### L 100.0100, L500.2500 ####[facility] [address] [place], [address] EST GFR - AA 15 mL/min Low >60 [facility] Comment on above: Result Comment: Afri can [place] GFR Calc Performed By: #### L 100.0100, L500.2500 ####[facility] [address] [place], [address] GAP 10 Normal 5-15 [facility] Comment on above: Performed By: #### L 100.0100, L500.2500 ####[facility] [address] [place], [address] GFR/1.73 sq M.predicted among non-blacks MDRD (S/P/Bld) [Vol rate/Area] 12 mL/min/{1.73_m2} Low >60 [facility] Comment on above: Result Comment: Non- GFR Calc Performed By: #### L 100.0100, L500.2500 ####[facility] [address] [place], [address] Glucose [Mass/Vol] 66 mg/dL Low 74-106 [facility] [facility] Comment on above: Performed By: #### L 100.0100, L500.2500 ####[facility] [address] [place], [address] Potassium [Moles/Vol] 4.1 mmol/L Normal 3.5-5.1 [facility] Comment on above: Performed By: #### L 100.0100, L500.2500 ####[facility] [address] [place], [address] Sodium [Moles/Vol] 135 mmol/L Low 136-145 [facility] Comment on above: Performed By: #### L 100.0100, L500.2500 ####[facility] [address] [place], [address] Urea nitrogen [Mass/Vol] 66 mg/dL High 7-18 [facility] Comment on above: Performed By: #### L 100.0100, L500.2500 ####[facility] [address] [place], [address] Bedside Glucoseon 04-22-2024 FINGERSTICK GLU 290 mg/dL High 74-106 [facility] Comment on above: Result Comment: FANG GEMENT OF PATIENT CARE PER NURSING PROTOCOL Performed By: #### L 501.080 ####[facility] [address] [place], [address] FINGERSTICK GLU 220 mg/dL High 74-106 [facility] Comment on above: Result Comment: FANG GEMENT OF PATIENT CARE PER NURSING PROTOCOL Performed By: #### L 501.080 ####[facility] [address], [address] FINGERSTICK GLU 191 mg/dL High 74-106 [facility] Comment on above: Result Comment: FANG GEMENT OF PATIENT CARE PER NURSING PROTOCOL Performed By: #### L 501.080 ####[facility] [address] [place], [address] FINGERSTICK GLU 54 mg/dL Low 74-106 [facility] Comment on above: Result Comment: FANG GEMENT OF PATIENT CARE PER NURSING PROTOCOL Performed By: #### L 501.080 ####[facility] [address] [place], [address] FINGERSTICK GLU 72 mg/dL Low 74-106 [facility] Comment on above: Result Comment: FANG VAZQUEZ OF PATIENT CARE PER NURSING PROTOCOL Performed By: #### L 501.080 ####[facility] [address] [place], [address] CBC W/Diff, Automatedon 12-0 Absolute Lymph 2.51 X10 3/uL Normal 0.83-4.51 [facility] Comment on above: Performed By: #### L 100.0100, L500.2500 ####[facility] [address] [place], [address] Absolute Neut 11.4 X10 3/uL High 2.0-7.7 [facility] Comment on above: Performed By: #### L 100.0100, L500.2500 ####[facility] [address] [place], [address] Basophils/100 WBC (Bld) 0.5 % Normal 0-1 [facility] Comment on above: Performed By: #### L 100.0100, L500.2500 ####[facility] [address] [place], [address] Eosinophils/100 WBC (Bld) 2.2 % Normal 0-5 [facility] Comment on above: Performed By: #### L 100.0100, L500.2500 ####[facility] [address] [place], [address] Erythrocyte distribution width (RBC) [Ratio] 14.9 % High 11.6-14.6 [facility] Comment on above: Performed By: #### L 100.0100, L500.2500 ####[facility] [address] [place], [address] Hematocrit (Bld) [Volume fraction] 30.1 % Low 40-54 [facility] Comment on above: Performed By: #### L 100.0100, L500.2500 ####[facility] [address] [place], [address] Hemoglobin (Bld) [Mass/Vol] 9.4 g/dL Low 13.0-16.5 [facility] Comment on above: Performed By: #### L 100.0100, L500.2500 ####[facility] [address] [place], [address] IG% 1.700 High 0.0-0.9 [facility] Comment on above: Result Comment: IG% - Immature Granulocytes (promyelocytes, myelocytes andmetamyelocytes) > 1% indicates that a LEFT SHIFT is Present. Performed By: #### L 100.0100, L500.2500 ####[facility] [address] [place], [address] Lymphocytes/100 WBC (Bld) 15.8 % Low 19-41 [facility] Comment on above: Performed By: #### L 100.0100, L500.2500 ####[facility] [address] [place], [address] MCH (RBC) [Entitic mass] 30.1 pg Normal 27.0-32.0 [facility] Comment on above: Performed By: #### L 100.0100, L500.2500 ####[facility] [address] [place], [address] MCHC (RBC) [Mass/Vol] 31.2 g/dL Low 32-36 [facility] Comment on above: Performed By: #### L 100.0100, L500.2500 ####[facility] [address] [place], [address] MCV (RBC) [Entitic vol] 96.5 fL High 80-94 [facility] Comment on above: Performed By: #### L 100.0100, L500.2500 ####[facility] [address] [place], [address] Monocytes/100 WBC (Bld) 8.5 % Normal 0-10 [facility] Comment on above: Performed By: #### L 100.0100, L500.2500 ####[facility] [address] [place], [address] Neutrophils/100 WBC (Bld) 71.3 % High 47-70 [facility] Comment on above: Performed By: #### L 100.0100, L500.2500 ####[facility] [address] [place], [address] Nucleated RBC (Bld) [#/Vol] 0 10*3/uL Normal 0-5 [facility] Comment on above: Performed By: #### L 100.0100, L500.2500 ####[facility] [address] [place], [address] Platelet mean volume (Bld) [Entitic vol] 11.2 fL Normal 6.2-12.0 [facility] Comment on above: Performed By: #### L 100.0100, L500.2500 ####[facility] [address] [place], [address] Platelets (Bld) [#/Vol] 303 10*3/uL Normal 150-450 [facility] Comment on above: Performed By: #### L 100.0100, L500.2500 ####[facility] [address] [place], [address] RBC (Bld) [#/Vol] 3.12 10*6/uL Low 4.6-6.2 [facility] Comment on above: Performed By: #### L 100.0100, L500.2500 ####[facility] [address] [place], [address] RDW SD 52.3 fl High 35.1-43.9 [facility] Comment on above: Performed By: #### L 100.0100, L500.2500 ####[facility] [address] [place], [address] WBC (Bld) [#/Vol] 15.9 10*3/uL High 4.4-11.0 [facility] Comment on above: Performed By: #### L 100.0100, L500.2500 ####[facility] [address] [place], [address] Wound Cultureon 04-22-2024 WC Normal [facility] Comment on above: Performed By: #### M 100.2000, M100.3000 ####[facility] [address] [place], [address] Basic Metabolic Profile (BMP )on 04-21-2024 BUN/CRE 14.8 RATIO Normal 10-20 [facility] Comment on above: Performed By: #### L 500.2500, L100.0100 ####[facility] [address] [place], [address] CA,Total 8.6 mg/dL Normal 8.5-10.1 [facility] Comment on above: Performed By: #### L 500.2500, L100.0100 ####[facility] [address] [place], [address] Chloride [Moles/Vol] 98 mmol/L Normal 98-107 [facility] Comment on above: Performed By: #### L 500.2500, L100.0100 ####[facility] [address] [place], [address] CO2 [Moles/Vol] 25.0 mmol/L Normal 21.0-32.0 [facility] Comment on above: Performed By: #### L 500.2500, L100.0100 ####[facility] [address] [place], [address] Creatinine [Mass/Vol] 6.13 mg/dL High 0.70-1.30 [facility] Comment on above: Result Comment: The validity of the calculated GFR GFRAA in patients over70 years has not been determined. Clinical correlation isessential. Performed By: #### L 500.2500, L100.0100 ####[facility] [address] [place], [address] ECRCL 10.02 ml/min Normal [facility] Comment on above: Performed By: #### L 500.2500, L100.0100 ####[facility] [address] [place], [address] EST GFR - AA 11 mL/min Low >60 [facility] Comment on above: Result Comment: Afri can [place] GFR Calc Performed By: #### L 500.2500, L100.0100 ####[facility] [address] [place], [address] GAP 9 Normal 5-15 [facility] Comment on above: Performed By: #### L 500.2500, L100.0100 ####[facility] [address] [place], [address] GFR/1.73 sq M.predicted among non-blacks MDRD (S/P/Bld) [Vol rate/Area] 9 mL/min/{1.73_m2} Low >60 [facility] Comment on above: Result Comment: Non- GFR Calc Performed By: #### L 500.2500, L100.0100 ####[facility] [address] [place], [address] Glucose [Mass/Vol] 123 mg/dL High 74-106 [facility] Comment on above: Result Comment: Fast ing Glucose result from 100 to 125 mg/dLsuggests IMPAIRED HOMEOSTASIS per A.D.A. criteria. Performed By: #### L 500.2500, L100.0100 ####[facility] [address] [place], [address] Potassium [Moles/Vol] 4.4 mmol/L Normal 3.5-5.1 [facility] Comment on above: Performed By: #### L 500.2500, L100.0100 ####[facility] [address] [place], [address] Sodium [Moles/Vol] 132 mmol/L Low 136-145 [facility] Comment on above: Performed By: #### L 500.2500, L100.0100 ####[facility] [address] [place], [address] Urea nitrogen [Mass/Vol] 91 mg/dL High 7-18 [facility] Comment on above: Performed By: #### L 500.2500, L100.0100 ####[facility] [address] [place], [address] Bedside Glucoseon 04-21-2024 FINGERSTICK GLU 158 mg/dL High 74-106 [facility] Comment on above: Result Comment: FANG GEMENT OF PATIENT CARE PER NURSING PROTOCOL Performed By: #### L 501.080 ####[facility] [address] [place], [address] FINGERSTICK GLU 173 mg/dL High 74-106 [facility] Comment on above: Result Comment: FANG GEMENT OF PATIENT CARE PER NURSING PROTOCOL Performed By: #### L 501.080 ####[facility] [address] [place], [address] FINGERSTICK GLU 312 mg/dL High 74-106 [facility] Comment on above: Result Comment: FANG GEMENT OF PATIENT CARE PER NURSING PROTOCOL Performed By: #### L 501.080 ####[facility] [address] [place], [address] FINGERSTICK GLU 103 mg/dL Normal 74-106 [facility] Comment on above: Result Comment: FANG GEMENT OF PATIENT CARE PER NURSING PROTOCOL Performed By: #### L 501.080 ####[facility] [address] [place], [address] CBC W/Diff, Automatedon 11-3 0-2024 Absolute Lymph 2.21 X10 3/uL Normal 0.83-4.51 [facility] Comment on above: Performed By: #### L 500.2500, L100.0100 ####[facility] [address] [place], [address] Absolute Neut 10.9 X10 3/uL High 2.0-7.7 [facility] Comment on above: Performed By: #### L 500.2500, L100.0100 ####[facility] [address] [place], [address] Basophils/100 WBC (Bld) 0.3 % Normal 0-1 [facility] Comment on above: Performed By: #### L 500.2500, L100.0100 ####[facility] [address] [place], [address] Eosinophils/100 WBC (Bld) 2.1 % Normal 0-5 [facility] Comment on above: Performed By: #### L 500.2500, L100.0100 ####[facility] [address] [place], [address] Erythrocyte distribution width (RBC) [Ratio] 14.9 % High 11.6-14.6 [facility] Comment on above: Performed By: #### L 500.2500, L100.0100 ####[facility] [address] [place], [address] Hematocrit (Bld) [Volume fraction] 31.2 % Low 40-54 [facility] Comment on above: Performed By: #### L 500.2500, L100.0100 ####[facility] [address] [place], [address] Hemoglobin (Bld) [Mass/Vol] 9.4 g/dL Low 13.0-16.5 [facility] Comment on above: Performed By: #### L 500.2500, L100.0100 ####[facility] [address] [place], [address] IG% 1.700 High 0.0-0.9 [facility] Comment on above: Result Comment: IG% - Immature Granulocytes (promyelocytes, myelocytes andmetamyelocytes) > 1% indicates that a LEFT SHIFT is Present. Performed By: #### L 500.2500, L100.0100 ####[facility] [address] [place], [address] Lymphocytes/100 WBC (Bld) 14.7 % Low 19-41 [facility] Comment on above: Performed By: #### L 500.2500, L100.0100 ####[facility] [address] [place], [address] MCH (RBC) [Entitic mass] 29.1 pg Normal 27.0-32.0 [facility] Comment on above: Performed By: #### L 500.2500, L100.0100 ####[facility] [address] [place], [address] MCHC (RBC) [Mass/Vol] 30.1 g/dL Low 32-36 [facility] Comment on above: Performed By: #### L 500.2500, L100.0100 ####[facility] [address] [place], [address] MCV (RBC) [Entitic vol] 96.6 fL High 80-94 [facility] Comment on above: Performed By: #### L 500.2500, L100.0100 ####[facility] [address] [place], [address] Monocytes/100 WBC (Bld) 8.6 % Normal 0-10 [facility] Comment on above: Performed By: #### L 500.2500, L100.0100 ####[facility] [address] [place], [address] Neutrophils/100 WBC (Bld) 72.6 % High 47-70 [facility] Comment on above: Performed By: #### L 500.2500, L100.0100 ####[facility] [address] [place], [address] Nucleated RBC (Bld) [#/Vol] 0 10*3/uL Normal 0-5 [facility] Comment on above: Performed By: #### L 500.2500, L100.0100 ####[facility] [address] [place], [address] Platelet mean volume (Bld) [Entitic vol] 10.8 fL Normal 6.2-12.0 [facility] Comment on above: Performed By: #### L 500.2500, L100.0100 ####[facility] [address], [address] Platelets (Bld) [#/Vol] 285 10*3/uL Normal 150-450 [facility] Comment on above: Performed By: #### L 500.2500, L100.0100 ####[facility] [address] [place], [address] RBC (Bld) [#/Vol] 3.23 10*6/uL Low 4.6-6.2 [facility] Comment on above: Performed By: #### L 500.2500, L100.0100 ####[facility] [address] [place], [address] RDW SD 51.8 fl High 35.1-43.9 [facility] Comment on above: Performed By: #### L 500.2500, L100.0100 ####[facility] [address] [place], [address] WBC (Bld) [#/Vol] 15.0 10*3/uL High 4.4-11.0 [facility] Comment on above: Performed By: #### L 500.2500, L100.0100 ####[facility] [address] [place], [address] Culture, Anaerobic Any Sourc reed 04-21-2024 CUAN Normal [facility] Comment on above: Performed By: #### M 100.2000, M100.4001, M100.3000 ####[facility] [address] [place], [address] Vancomycin, Random Levelon 1 06-21-2023 VANCO, RANDOM 15.6 ug/mL High 0.0-15.0 [facility] Comment on above: Result Comment: VANC OMYCIN STANDARD DRUG THERAPY: CRITICAL VALUE IS > 15.0 mg/LVANCOMYCIN HIGH INTENSITY THERAPY: CRITICAL VALUE IS > 20.0 mg/LPLEASE CONTACT PHARMACY SERVICES (#8176) FOR INTERPRETATIONOF RESULTS. THIS RESULT DOES NOT REPRESENT A PEAK OR TROUGHLEVEL FOR THIS DRUG. Performed By: #### L 501.8850 ####[facility] [address] [place], [address] Basic Metabolic Profile (BMP )on 04-20-2024 BUN/CRE 14.3 RATIO Normal 10-20 [facility] Comment on above: Performed By: #### L 500.2500, L100.0100 ####[facility] [address] [place], [address] CA,Total 8.6 mg/dL Normal 8.5-10.1 [facility] Comment on above: Performed By: #### L 500.2500, L100.0100 ####[facility] [address] [place], [address] Chloride [Moles/Vol] 98 mmol/L Normal 98-107 [facility] Comment on above: Performed By: #### L 500.2500, L100.0100 ####[facility] [address] [place], [address] CO2 [Moles/Vol] 23.0 mmol/L Normal 21.0-32.0 [facility] Comment on above: Performed By: #### L 500.2500, L100.0100 ####[facility] [address] [place], [address] Creatinine [Mass/Vol] 5.23 mg/dL High 0.70-1.30 [facility] Comment on above: Result Comment: The validity of the calculated GFR GFRAA in patients over70 years has not been determined. Clinical correlation isessential. Performed By: #### L 500.2500, L100.0100 ####[facility] [address] [place], [address] ECRCL 11.74 ml/min Normal [facility] Comment on above: Performed By: #### L 500.2500, L100.0100 ####[facility] [address] [place], [address] EST GFR - AA 14 mL/min Low >60 [facility] Comment on above: Result Comment: Afri can [place] GFR Calc Performed By: #### L 500.2500, L100.0100 ####[facility] [address] [place], [address] GAP 10 Normal 5-15 [facility] Comment on above: Performed By: #### L 500.2500, L100.0100 ####[facility] [address] [place], [address] GFR/1.73 sq M.predicted among non-blacks MDRD (S/P/Bld) [Vol rate/Area] 11 mL/min/{1.73_m2} Low >60 [facility] Comment on above: Result Comment: Non- GFR Calc Performed By: #### L 500.2500, L100.0100 ####[facility] [address] [place], [address] Glucose [Mass/Vol] 264 mg/dL High 74-106 [facility] Comment on above: Result Comment: Gluc ose result greater than or equal to 200 mg/dLsuggests DIABETES MELLITUS per A.D.A. criteria. Performed By: #### L 500.2500, L100.0100 ####[facility] [address] [place], [address] Potassium [Moles/Vol] 4.4 mmol/L Normal 3.5-5.1 [facility] Comment on above: Performed By: #### L 500.2500, L100.0100 ####[facility] [address] [place], [address] Sodium [Moles/Vol] 131 mmol/L Low 136-145 [facility] Comment on above: Performed By: #### L 500.2500, L100.0100 ####[facility] [address] [place], [address] Urea nitrogen [Mass/Vol] 75 mg/dL High 7-18 [facility] Comment on above: Performed By: #### L 500.2500, L100.0100 ####[facility] [address] [place], [address] Bedside Glucoseon 04-20-2024 FINGERSTICK GLU 317 mg/dL High 74-106 [facility] Comment on above: Result Comment: FANG GEMENT OF PATIENT CARE PER NURSING PROTOCOL Performed By: #### L 501.080 ####[facility] [address] [place], [address] FINGERSTICK GLU 306 mg/dL High 74-106 [facility] Comment on above: Result Comment: FANG GEMENT OF PATIENT CARE PER NURSING PROTOCOL Performed By: #### L 501.080 ####[facility] [address] [place], [address] FINGERSTICK GLU 254 mg/dL High 74-106 [facility] Comment on above: Result Comment: FANG VAZQUEZ OF PATIENT CARE PER NURSING PROTOCOL Performed By: #### L 501.080 ####[facility] [address] [place], [address] CBC W/Diff, Automatedon 11-2 Absolute Lymph 1.78 X10 3/uL Normal 0.83-4.51 [facility] Comment on above: Performed By: #### L 500.2500, L100.0100 ####[facility] [address] [place], [address] Absolute Neut 10.4 X10 3/uL High 2.0-7.7 [facility] Comment on above: Performed By: #### L 500.2500, L100.0100 ####[facility] [address] [place], [address] Basophils/100 WBC (Bld) 0.4 % Normal 0-1 [facility] Comment on above: Performed By: #### L 500.2500, L100.0100 ####[facility] [address] [place], [address] Eosinophils/100 WBC (Bld) 2.2 % Normal 0-5 [facility] Comment on above: Performed By: #### L 500.2500, L100.0100 ####[facility] [address] [place], [address] Erythrocyte distribution width (RBC) [Ratio] 14.8 % High 11.6-14.6 [facility] Comment on above: Performed By: #### L 500.2500, L100.0100 ####[facility] [address] [place], [address] Hematocrit (Bld) [Volume fraction] 30.3 % Low 40-54 [facility] Comment on above: Performed By: #### L 500.2500, L100.0100 ####[facility] [address] [place], [address] Hemoglobin (Bld) [Mass/Vol] 9.6 g/dL Low 13.0-16.5 [facility] Comment on above: Performed By: #### L 500.2500, L100.0100 ####[facility] [address] [place], [address] IG% 1.400 High 0.0-0.9 [facility] Comment on above: Result Comment: IG% - Immature Granulocytes (promyelocytes, myelocytes andmetamyelocytes) > 1% indicates that a LEFT SHIFT is Present. Performed By: #### L 500.2500, L100.0100 ####[facility] [address] [place], [address] Lymphocytes/100 WBC (Bld) 12.8 % Low 19-41 [facility] Comment on above: Performed By: #### L 500.2500, L100.0100 ####[facility] [address] [place], [address] MCH (RBC) [Entitic mass] 30.3 pg Normal 27.0-32.0 [facility] Comment on above: Performed By: #### L 500.2500, L100.0100 ####[facility] [address] [place], [address] MCHC (RBC) [Mass/Vol] 31.7 g/dL Low 32-36 [facility] Comment on above: Performed By: #### L 500.2500, L100.0100 ####[facility] [address] [place], [address] MCV (RBC) [Entitic vol] 95.6 fL High 80-94 [facility] Comment on above: Performed By: #### L 500.2500, L100.0100 ####[facility] [address] [place], [address] Monocytes/100 WBC (Bld) 8.5 % Normal 0-10 [facility] Comment on above: Performed By: #### L 500.2500, L100.0100 ####[facility] [address] [place], [address] Neutrophils/100 WBC (Bld) 74.7 % High 47-70 [facility] Comment on above: Performed By: #### L 500.2500, L100.0100 ####[facility] [address] [place], [address] Nucleated RBC (Bld) [#/Vol] 0 10*3/uL Normal 0-5 [facility] Comment on above: Performed By: #### L 500.2500, L100.0100 ####[facility] [address] [place], [address] Platelet mean volume (Bld) [Entitic vol] 11.2 fL Normal 6.2-12.0 [facility] Comment on above: Performed By: #### L 500.2500, L100.0100 ####[facility] [address] [place], [address] Platelets (Bld) [#/Vol] 260 10*3/uL Normal 150-450 [facility] Comment on above: Performed By: #### L 500.2500, L100.0100 ####[facility] [address] [place], [address] RBC (Bld) [#/Vol] 3.17 10*6/uL Low 4.6-6.2 [facility] Comment on above: Performed By: #### L 500.2500, L100.0100 ####[facility] [address] [place], [address] RDW SD 51.7 fl High 35.1-43.9 [facility] Comment on above: Performed By: #### L 500.2500, L100.0100 ####[facility] [address] [place], [address] WBC (Bld) [#/Vol] 13.9 10*3/uL High 4.4-11.0 [facility] Comment on above: Performed By: #### L 500.2500, L100.0100 ####[facility] [address] [place], [address] Basic Metabolic Profile (BMP )on 04-19-2024 BUN/CRE 14.5 RATIO Normal 10-20 [facility] Comment on above: Performed By: #### L 100.0100, L500.2500 ####[facility] [address] [place], [address] CA,Total 8.4 mg/dL Low 8.5-10.1 [facility] Comment on above: Performed By: #### L 100.0100, L500.2500 ####[facility] [address] [place], [address] Chloride [Moles/Vol] 100 mmol/L Normal 98-107 [facility] Comment on above: Performed By: #### L 100.0100, L500.2500 ####[facility] [address] [place], [address] CO2 [Moles/Vol] 25.0 mmol/L Normal 21.0-32.0 [facility] Comment on above: Performed By: #### L 100.0100, L500.2500 ####[facility] [address] [place], [address] Creatinine [Mass/Vol] 4.13 mg/dL High 0.70-1.30 [facility] Comment on above: Result Comment: The validity of the calculated GFR GFRAA in patients over70 years has not been determined. Clinical correlation isessential. Performed By: #### L 100.0100, L500.2500 ####[facility] [address] [place], [address] ECRCL 14.76 ml/min Normal [facility] Comment on above: Performed By: #### L 100.0100, L500.2500 ####[facility] [address] [place], [address] EST GFR - AA 18 mL/min Low >60 [facility] Comment on above: Result Comment: Afri can [place] GFR Calc Performed By: #### L 100.0100, L500.2500 ####[facility] [address] [place], [address] GAP 9 Normal 5-15 [facility] Comment on above: Performed By: #### L 100.0100, L500.2500 ####[facility] [address] [place], [address] GFR/1.73 sq M.predicted among non-blacks MDRD (S/P/Bld) [Vol rate/Area] 15 mL/min/{1.73_m2} Low >60 [facility] Comment on above: Result Comment: Non- GFR Calc Performed By: #### L 100.0100, L500.2500 ####[facility] [address] [place], [address] Glucose [Mass/Vol] 272 mg/dL High 74-106 [facility] Comment on above: Result Comment: Gluc ose result greater than or equal to 200 mg/dLsuggests DIABETES MELLITUS per A.D.A. criteria. Performed By: #### L 100.0100, L500.2500 ####[facility] [address] [place], [address] Potassium [Moles/Vol] 4.2 mmol/L Normal 3.5-5.1 [facility] Comment on above: Performed By: #### L 100.0100, L500.2500 ####[facility] [address] [place], [address] Sodium [Moles/Vol] 134 mmol/L Low 136-145 [facility] Comment on above: Performed By: #### L 100.0100, L500.2500 ####[facility] [address] [place], [address] Urea nitrogen [Mass/Vol] 60 mg/dL High 7-18 [facility] Comment on above: Performed By: #### L 100.0100, L500.2500 ####[facility] [address] [place], [address] Bedside Glucoseon 04-19-2024 FINGERSTICK GLU 261 mg/dL High 74-106 [facility] Comment on above: Result Comment: FANG GEMENT OF PATIENT CARE PER NURSING PROTOCOL Performed By: #### L 501.080 ####[facility] [address] [place], [address] FINGERSTICK GLU 292 mg/dL High 74-106 [facility] Comment on above: Result Comment: FANG GEMENT OF PATIENT CARE PER NURSING PROTOCOL Performed By: #### L 501.080 ####[facility] [address] [place], [address] FINGERSTICK GLU 298 mg/dL High 74-106 [facility] Comment on above: Result Comment: FANG GEMENT OF PATIENT CARE PER NURSING PROTOCOL Performed By: #### L 501.080 ####[facility] [address] [place], [address] FINGERSTICK GLU 247 mg/dL High 74-106 [facility] Comment on above: Result Comment: FANG GEMENT OF PATIENT CARE PER NURSING PROTOCOL Performed By: #### L 501.080 ####[facility] [address] [place], [address] CBC W/Diff, Automatedon 11-2 -2023 Absolute Lymph 1.63 X10 3/uL Normal 0.83-4.51 [facility] Comment on above: Performed By: #### L 100.0100, L500.2500 ####[facility] [address], [address] Absolute Neut 11.4 X10 3/uL High 2.0-7.7 [facility] Comment on above: Performed By: #### L 100.0100, L500.2500 ####[facility] [address] [place], [address] Basophils/100 WBC (Bld) 0.3 % Normal 0-1 [facility] Comment on above: Performed By: #### L 100.0100, L500.2500 ####[facility] [address] [place], [address] Eosinophils/100 WBC (Bld) 1.1 % Normal 0-5 [facility] Comment on above: Performed By: #### L 100.0100, L500.2500 ####[facility] [address] [place], [address] Erythrocyte distribution width (RBC) [Ratio] 15.0 % High 11.6-14.6 [facility] Comment on above: Performed By: #### L 100.0100, L500.2500 ####[facility] [address] [place], [address] Hematocrit (Bld) [Volume fraction] 30.5 % Low 40-54 [facility] Comment on above: Performed By: #### L 100.0100, L500.2500 ####[facility] [address] [place], [address] Hemoglobin (Bld) [Mass/Vol] 9.4 g/dL Low 13.0-16.5 [facility] Comment on above: Performed By: #### L 100.0100, L500.2500 ####[facility] [address] [place], [address] IG% 0.900 Normal 0.0-0.9 [facility] Comment on above: Result Comment: IG% - Immature Granulocytes (promyelocytes, myelocytes andmetamyelocytes) > 1% indicates that a LEFT SHIFT is Present. Performed By: #### L 100.0100, L500.2500 ####[facility] [address] [place], [address] Lymphocytes/100 WBC (Bld) 11.1 % Low 19-41 [facility] Comment on above: Performed By: #### L 100.0100, L500.2500 ####[facility] [address] [place], [address] MCH (RBC) [Entitic mass] 29.8 pg Normal 27.0-32.0 [facility] Comment on above: Performed By: #### L 100.0100, L500.2500 ####[facility] [address] [place], [address] MCHC (RBC) [Mass/Vol] 30.8 g/dL Low 32-36 [facility] Comment on above: Performed By: #### L 100.0100, L500.2500 ####[facility] [address] [place], [address] MCV (RBC) [Entitic vol] 96.8 fL High 80-94 [facility] Comment on above: Performed By: #### L 100.0100, L500.2500 ####[facility] [address] [place], [address] Monocytes/100 WBC (Bld) 8.9 % Normal 0-10 [facility] Comment on above: Performed By: #### L 100.0100, L500.2500 ####[facility] [address] [place], [address] Neutrophils/100 WBC (Bld) 77.7 % High 47-70 [facility] Comment on above: Performed By: #### L 100.0100, L500.2500 ####[facility] [address] [place], [address] Nucleated RBC (Bld) [#/Vol] 0 10*3/uL Normal 0-5 [facility] Comment on above: Performed By: #### L 100.0100, L500.2500 ####[facility] [address] [place], [address] Platelet mean volume (Bld) [Entitic vol] 11.4 fL Normal 6.2-12.0 [facility] Comment on above: Performed By: #### L 100.0100, L500.2500 ####[facility] [address] [place], [address] Platelets (Bld) [#/Vol] 253 10*3/uL Normal 150-450 [facility] Comment on above: Performed By: #### L 100.0100, L500.2500 ####[facility] [address] [place], [address] RBC (Bld) [#/Vol] 3.15 10*6/uL Low 4.6-6.2 [facility] Comment on above: Performed By: #### L 100.0100, L500.2500 ####[facility] [address] [place], [address] RDW SD 52.9 fl High 35.1-43.9 [facility] Comment on above: Performed By: #### L 100.0100, L500.2500 ####[facility] [address] [place], [address] WBC (Bld) [#/Vol] 14.6 10*3/uL High 4.4-11.0 [facility] Comment on above: Performed By: #### L 100.0100, L500.2500 ####[facility] [address] [place], [address] Culture, Blood (WB)on 2023 CUB Blood cultures x2 fr om two different sites No growth in 5 days. Normal [facility] Comment on above: Performed By: #### M 200.1000 ####[facility] [address] [place], [address] ACT Activated Clotting Timeo n 04-18-2024 ACTk CLOT TIME 222 sec High 74-137 [facility] Comment on above: Performed By: #### L 9100.0100 ####[facility] [address] [place], [address] BUNon 04-18-2024 Urea nitrogen [Mass/Vol] 39 mg/dL High 7-18 [facility] Comment on above: Performed By: #### L 501.1105, L501.1000 ####[facility] [address] [place], [address] Basic Metabolic Profile (BMP )on 04-18-2024 BUN/CRE 16.6 RATIO Normal 10-20 [facility] Comment on above: Performed By: #### L 500.2500, L100.0100 ####[facility] [address] [place], [address] CA,Total 8.5 mg/dL Normal 8.5-10.1 [facility] Comment on above: Performed By: #### L 500.2500, L100.0100 ####[facility] [address] [place], [address] Chloride [Moles/Vol] 98 mmol/L Normal 98-107 [facility] Comment on above: Performed By: #### L 500.2500, L100.0100 ####[facility] [address] [place], [address] CO2 [Moles/Vol] 24.0 mmol/L Normal 21.0-32.0 [facility] Comment on above: Performed By: #### L 500.2500, L100.0100 ####[facility] [address] [place], [address] Creatinine [Mass/Vol] 5.00 mg/dL High 0.70-1.30 [facility] Comment on above: Result Comment: The validity of the calculated GFR GFRAA in patients over70 years has not been determined. Clinical correlation isessential. Performed By: #### L 500.2500, L100.0100 ####[facility] [address] [place], [address] ECRCL 12.43 ml/min Normal [facility] Comment on above: Performed By: #### L 500.2500, L100.0100 ####[facility] [address] [place], [address] EST GFR - AA 14 mL/min Low >60 [facility] Comment on above: Result Comment: Afri can [place] GFR Calc Performed By: #### L 500.2500, L100.0100 ####[facility] [address] [place], [address] GAP 10 Normal 5-15 [facility] Comment on above: Performed By: #### L 500.2500, L100.0100 ####[facility] [address] [place], [address] GFR/1.73 sq M.predicted among non-blacks MDRD (S/P/Bld) [Vol rate/Area] 12 mL/min/{1.73_m2} Low >60 [facility] Comment on above: Result Comment: Non- GFR Calc Performed By: #### L 500.2500, L100.0100 ####[facility] [address] [place], [address] Glucose [Mass/Vol] 136 mg/dL High 74-106 [facility] Comment on above: Result Comment: Fast ing Glucose result greater than or equal to 126 mg/dLsuggests DIABETES MELLITUS per A.D.A. criteria. Performed By: #### L 500.2500, L100.0100 ####[facility] [address] [place], [address] Potassium [Moles/Vol] 4.1 mmol/L Normal 3.5-5.1 [facility] Comment on above: Performed By: #### L 500.2500, L100.0100 ####[facility] [address] [place], [address] Sodium [Moles/Vol] 132 mmol/L Low 136-145 [facility] Comment on above: Performed By: #### L 500.2500, L100.0100 ####[facility] [address] [place], [address] Urea nitrogen [Mass/Vol] 83 mg/dL High 7-18 [facility] Comment on above: Performed By: #### L 500.2500, L100.0100 ####[facility] [address] [place], [address] Bedside Glucoseon 04-18-2024 FINGERSTICK GLU 289 mg/dL High 74-106 [facility] Comment on above: Result Comment: FANG GEMENT OF PATIENT CARE PER NURSING PROTOCOL Performed By: #### L 501.080 ####[facility] [address] [place], [address] FINGERSTICK GLU 106 mg/dL Normal 74-106 [facility] Comment on above: Result Comment: FANG GEMENT OF PATIENT CARE PER NURSING PROTOCOL Performed By: #### L 501.080 ####[facility] [address] [place], [address] FINGERSTICK GLU 123 mg/dL High 74-106 [facility] Comment on above: Result Comment: FANG GEMENT OF PATIENT CARE PER NURSING PROTOCOL Performed By: #### L 501.080 ####[facility] [address] [place], [address] FINGERSTICK GLU 132 mg/dL High 74-106 [facility] Comment on above: Result Comment: FANG GEMENT OF PATIENT CARE PER NURSING PROTOCOL Performed By: #### L 501.080 ####[facility] [address] [place], [address] FINGERSTICK GLU 313 mg/dL High 74-106 [facility] Comment on above: Result Comment: FANG GEMENT OF PATIENT CARE PER NURSING PROTOCOL Performed By: #### L 501.080 ####[facility] [address] [place], [address] CBC W/Diff, Automatedon 11-2 -2023 Absolute Lymph 1.73 X10 3/uL Normal 0.83-4.51 [facility] Comment on above: Performed By: #### L 500.2500, L100.0100 ####[facility] [address] [place], [address] Absolute Neut 11.4 X10 3/uL High 2.0-7.7 [facility] Comment on above: Performed By: #### L 500.2500, L100.0100 ####[facility] [address] [place], [address] Basophils/100 WBC (Bld) 0.3 % Normal 0-1 [facility] Comment on above: Performed By: #### L 500.2500, L100.0100 ####[facility] [address] [place], [address] Eosinophils/100 WBC (Bld) 1.4 % Normal 0-5 [facility] Comment on above: Performed By: #### L 500.2500, L100.0100 ####[facility] [address] [place], [address] Erythrocyte distribution width (RBC) [Ratio] 14.8 % High 11.6-14.6 [facility] Comment on above: Performed By: #### L 500.2500, L100.0100 ####[facility] [address] [place], [address] Hematocrit (Bld) [Volume fraction] 30.8 % Low 40-54 [facility] Comment on above: Performed By: #### L 500.2500, L100.0100 ####[facility] [address] [place], [address] Hemoglobin (Bld) [Mass/Vol] 9.5 g/dL Low 13.0-16.5 [facility] Comment on above: Performed By: #### L 500.2500, L100.0100 ####[facility] [address] [place], [address] IG% 0.900 Normal 0.0-0.9 [facility] Comment on above: Result Comment: IG% - Immature Granulocytes (promyelocytes, myelocytes andmetamyelocytes) > 1% indicates that a LEFT SHIFT is Present. Performed By: #### L 500.2500, L100.0100 ####[facility] [address] [place], [address] Lymphocytes/100 WBC (Bld) 11.7 % Low 19-41 [facility] Comment on above: Performed By: #### L 500.2500, L100.0100 ####[facility] [address] [place], [address] MCH (RBC) [Entitic mass] 29.8 pg Normal 27.0-32.0 [facility] Comment on above: Performed By: #### L 500.2500, L100.0100 ####[facility] [address] [place], [address] MCHC (RBC) [Mass/Vol] 30.8 g/dL Low 32-36 [facility] Comment on above: Performed By: #### L 500.2500, L100.0100 ####[facility] [address] [place], [address] MCV (RBC) [Entitic vol] 96.6 fL High 80-94 [facility] Comment on above: Performed By: #### L 500.2500, L100.0100 ####[facility] [address] [place], [address] Monocytes/100 WBC (Bld) 8.4 % Normal 0-10 [facility] Comment on above: Performed By: #### L 500.2500, L100.0100 ####[facility] [address] [place], [address] Neutrophils/100 WBC (Bld) 77.3 % High 47-70 [facility] Comment on above: Performed By: #### L 500.2500, L100.0100 ####[facility] [address] [place], [address] Nucleated RBC (Bld) [#/Vol] 0 10*3/uL Normal 0-5 [facility] Comment on above: Performed By: #### L 500.2500, L100.0100 ####[facility] [address] [place], [address] Platelet mean volume (Bld) [Entitic vol] 11.7 fL Normal 6.2-12.0 [facility] Comment on above: Performed By: #### L 500.2500, L100.0100 ####[facility] [address] [place], [address] Platelets (Bld) [#/Vol] 250 10*3/uL Normal 150-450 [facility] Comment on above: Performed By: #### L 500.2500, L100.0100 ####[facility] [address] [place], [address] RBC (Bld) [#/Vol] 3.19 10*6/uL Low 4.6-6.2 [facility] Comment on above: Performed By: #### L 500.2500, L100.0100 ####[facility] [address] [place], [address] RDW SD 51.9 fl High 35.1-43.9 [facility] Comment on above: Performed By: #### L 500.2500, L100.0100 ####[facility] [address] [place], [address] WBC (Bld) [#/Vol] 14.7 10*3/uL High 4.4-11.0 [facility] Comment on above: Performed By: #### L 500.2500, L100.0100 ####[facility] [address] [place], [address] Operative Reporton 4 Operative Report Normal [facility] Serum Creatinine AND GFRon 1 06-18-2023 Creatinine [Mass/Vol] 2.45 mg/dL High 0.70-1.30 [facility] Comment on above: Result Comment: The validity of the calculated GFR GFRAA in patients over70 years has not been determined. Clinical correlation isessential. Performed By: #### L 501.1105, L501.1000 ####[facility] [address] [place], [address] ECRCL 24.91 ml/min Normal [facility] Comment on above: Performed By: #### L 501.1105, L501.1000 ####[facility] [address] [place], [address] EST GFR - AA 32 mL/min Low >60 [facility] Comment on above: Result Comment: Afri can [place] GFR Calc Performed By: #### L 501.1105, L501.1000 ####[facility] [address] [place], [address] GFR/1.73 sq M.predicted among non-blacks MDRD (S/P/Bld) [Vol rate/Area] 27 mL/min/{1.73_m2} Low >60 [facility] Comment on above: Result Comment: Non- GFR Calc Performed By: #### L 501.1105, L501.1000 ####[facility] [address] [place], [address] Vancomycin, Random Levelon 1 06-18-2023 VANCO, RANDOM 16.5 ug/mL High 0.0-15.0 [facility] Comment on above: Order Comment: Comme nts: WITH AM LABS PLEASE, PRIOR TO HD Result Comment: VANC OMYCIN STANDARD DRUG THERAPY: CRITICAL VALUE IS > 15.0 mg/LVANCOMYCIN HIGH INTENSITY THERAPY: CRITICAL VALUE IS > 20.0 mg/LPLEASE CONTACT PHARMACY SERVICES (#4989) FOR INTERPRETATIONOF RESULTS. THIS RESULT DOES NOT REPRESENT A PEAK OR TROUGHLEVEL FOR THIS DRUG. Performed By: #### L 501.8850 ####[facility] [address] [place], [address] Basic Metabolic Profile (BMP )on 04-17-2024 BUN/CRE 14.9 RATIO Normal 10-20 [facility] Comment on above: Performed By: #### L 100.0100, L500.2500 ####[facility] [address] [place], [address] CA,Total 8.7 mg/dL Normal 8.5-10.1 [facility] Comment on above: Performed By: #### L 100.0100, L500.2500 ####[facility] [address] [place], [address] Chloride [Moles/Vol] 99 mmol/L Normal 98-107 [facility] Comment on above: Performed By: #### L 100.0100, L500.2500 ####[facility] [address] [place], [address] CO2 [Moles/Vol] 27.0 mmol/L Normal 21.0-32.0 [facility] Comment on above: Performed By: #### L 100.0100, L500.2500 ####[facility] [address] [place], [address] Creatinine [Mass/Vol] 3.88 mg/dL High 0.70-1.30 [facility] Comment on above: Result Comment: The validity of the calculated GFR GFRAA in patients over70 years has not been determined. Clinical correlation isessential. Performed By: #### L 100.0100, L500.2500 ####[facility] [address] [place], [address] ECRCL 15.55 ml/min Normal [facility] Comment on above: Performed By: #### L 100.0100, L500.2500 ####[facility] [address] [place], [address] EST GFR - AA 19 mL/min Low >60 [facility] Comment on above: Result Comment: Afri can [place] GFR Calc Performed By: #### L 100.0100, L500.2500 ####[facility] [address] [place], [address] GAP 8 Normal 5-15 [facility] Comment on above: Performed By: #### L 100.0100, L500.2500 ####[facility] [address] [place], [address] GFR/1.73 sq M.predicted among non-blacks MDRD (S/P/Bld) [Vol rate/Area] 16 mL/min/{1.73_m2} Low >60 [facility] Comment on above: Result Comment: Non- GFR Calc Performed By: #### L 100.0100, L500.2500 ####[facility] [address] [place], [address] Glucose [Mass/Vol] 139 mg/dL High 74-106 [facility] Comment on above: Result Comment: Fast ing Glucose result greater than or equal to 126 mg/dLsuggests DIABETES MELLITUS per A.D.A. criteria. Performed By: #### L 100.0100, L500.2500 ####[facility] [address] [place], [address] Potassium [Moles/Vol] 4.0 mmol/L Normal 3.5-5.1 [facility] Comment on above: Performed By: #### L 100.0100, L500.2500 ####[facility] [address] [place], [address] Sodium [Moles/Vol] 133 mmol/L Low 136-145 [facility] Comment on above: Performed By: #### L 100.0100, L500.2500 ####[facility] [address] [place], [address] Urea nitrogen [Mass/Vol] 58 mg/dL High 7-18 [facility] Comment on above: Performed By: #### L 100.0100, L500.2500 ####[facility] [address] [place], [address] Bedside Glucoseon 04-17-2024 FINGERSTICK GLU 337 mg/dL High 74-106 [facility] Comment on above: Result Comment: FANG GEMENT OF PATIENT CARE PER NURSING PROTOCOL Performed By: #### L 501.080 ####[facility] [address] [place], [address] FINGERSTICK GLU 219 mg/dL High 74-106 [facility] Comment on above: Result Comment: FANG GEMENT OF PATIENT CARE PER NURSING PROTOCOL Performed By: #### L 501.080 ####[facility] [address] [place], [address] FINGERSTICK GLU 139 mg/dL High 74-106 [facility] Comment on above: Result Comment: FANG VAZQUEZ OF PATIENT CARE PER NURSING PROTOCOL Performed By: #### L 501.080 ####[facility] [address] [place], [address] CBC W/Diff, Automatedon 11-2 Absolute Lymph 2.01 X10 3/uL Normal 0.83-4.51 [facility] Comment on above: Performed By: #### L 100.0100, L500.2500 ####[facility] [address] [place], [address] Absolute Neut 11.4 X10 3/uL High 2.0-7.7 [facility] Comment on above: Performed By: #### L 100.0100, L500.2500 ####[facility] [address] [place], [address] Basophils/100 WBC (Bld) 0.2 % Normal 0-1 [facility] Comment on above: Performed By: #### L 100.0100, L500.2500 ####[facility] [address] [place], [address] Eosinophils/100 WBC (Bld) 0.9 % Normal 0-5 [facility] Comment on above: Performed By: #### L 100.0100, L500.2500 ####[facility] [address] [place], [address] Erythrocyte distribution width (RBC) [Ratio] 14.8 % High 11.6-14.6 [facility] Comment on above: Performed By: #### L 100.0100, L500.2500 ####[facility] [address] [place], [address] Hematocrit (Bld) [Volume fraction] 32.2 % Low 40-54 [facility] Comment on above: Performed By: #### L 100.0100, L500.2500 ####[facility] [address] [place], [address] Hemoglobin (Bld) [Mass/Vol] 9.7 g/dL Low 13.0-16.5 [facility] Comment on above: Performed By: #### L 100.0100, L500.2500 ####[facility] [address] [place], [address] IG% 0.500 Normal 0.0-0.9 [facility] Comment on above: Result Comment: IG% - Immature Granulocytes (promyelocytes, myelocytes andmetamyelocytes) > 1% indicates that a LEFT SHIFT is Present. Performed By: #### L 100.0100, L500.2500 ####[facility] [address] [place], [address] Lymphocytes/100 WBC (Bld) 13.4 % Low 19-41 [facility] Comment on above: Performed By: #### L 100.0100, L500.2500 ####[facility] [address] [place], [address] MCH (RBC) [Entitic mass] 29.6 pg Normal 27.0-32.0 [facility] Comment on above: Performed By: #### L 100.0100, L500.2500 ####[facility] [address] [place], [address] MCHC (RBC) [Mass/Vol] 30.1 g/dL Low 32-36 [facility] Comment on above: Performed By: #### L 100.0100, L500.2500 ####[facility] [address] [place], [address] MCV (RBC) [Entitic vol] 98.2 fL High 80-94 [facility] Comment on above: Performed By: #### L 100.0100, L500.2500 ####[facility] [address] [place], [address] Monocytes/100 WBC (Bld) 9.3 % Normal 0-10 [facility] Comment on above: Performed By: #### L 100.0100, L500.2500 ####[facility] [address] [place], [address] Neutrophils/100 WBC (Bld) 75.7 % High 47-70 [facility] Comment on above: Performed By: #### L 100.0100, L500.2500 ####[facility] [address] [place], [address] Nucleated RBC (Bld) [#/Vol] 0 10*3/uL Normal 0-5 [facility] Comment on above: Performed By: #### L 100.0100, L500.2500 ####[facility] [address] [place], [address] Platelet mean volume (Bld) [Entitic vol] 11.7 fL Normal 6.2-12.0 [facility] Comment on above: Performed By: #### L 100.0100, L500.2500 ####[facility] [address] [place], [address] Platelets (Bld) [#/Vol] 232 10*3/uL Normal 150-450 [facility] Comment on above: Performed By: #### L 100.0100, L500.2500 ####[facility] [address] [place], [address] RBC (Bld) [#/Vol] 3.28 10*6/uL Low 4.6-6.2 [facility] Comment on above: Performed By: #### L 100.0100, L500.2500 ####[facility] [address] [place], [address] RDW SD 53.6 fl High 35.1-43.9 [facility] Comment on above: Performed By: #### L 100.0100, L500.2500 ####[facility] [address] [place], [address] WBC (Bld) [#/Vol] 15.0 10*3/uL High 4.4-11.0 [facility] Comment on above: Performed By: #### L 100.0100, L500.2500 ####[facility] [address] [place], [address] 12 Lead EKGon 04-16-2024 12 Lead EKG Normal [facility] Basic Metabolic Profile (BMP )on 04-16-2024 BUN/CRE 12.0 RATIO Normal 10-20 [facility] Comment on above: Performed By: #### L 100.0100, L500.2500 ####[facility] [address] [place], [address] CA,Total 8.6 mg/dL Normal 8.5-10.1 [facility] Comment on above: Performed By: #### L 100.0100, L500.2500 ####[facility] [address] [place], [address] Chloride [Moles/Vol] 96 mmol/L Low 98-107 [facility] Comment on above: Performed By: #### L 100.0100, L500.2500 ####[facility] [address] [place], [address] CO2 [Moles/Vol] 28.0 mmol/L Normal 21.0-32.0 [facility] Comment on above: Performed By: #### L 100.0100, L500.2500 ####[facility] [address] [place], [address] Creatinine [Mass/Vol] 4.76 mg/dL High 0.70-1.30 [facility] Comment on above: Result Comment: The validity of the calculated GFR GFRAA in patients over70 years has not been determined. Clinical correlation isessential. Performed By: #### L 100.0100, L500.2500 ####[facility] [address] [place], [address] ECRCL 12.86 ml/min Normal [facility] Comment on above: Performed By: #### L 100.0100, L500.2500 ####[facility] [address] [place], [address] EST GFR - AA 15 mL/min Low >60 [facility] Comment on above: Result Comment: Afri can [place] GFR Calc Performed By: #### L 100.0100, L500.2500 ####[facility] [address] [place], [address] GAP 9 Normal 5-15 [facility] Comment on above: Performed By: #### L 100.0100, L500.2500 ####[facility] [address] [place], [address] GFR/1.73 sq M.predicted among non-blacks MDRD (S/P/Bld) [Vol rate/Area] 12 mL/min/{1.73_m2} Low >60 [facility] Comment on above: Result Comment: Non- GFR Calc Performed By: #### L 100.0100, L500.2500 ####[facility] [address] [place], [address] Glucose [Mass/Vol] 148 mg/dL High 74-106 [facility] Comment on above: Result Comment: Fast ing Glucose result greater than or equal to 126 mg/dLsuggests DIABETES MELLITUS per A.D.A. criteria. Performed By: #### L 100.0100, L500.2500 ####[facility] [address] [place], [address] Potassium [Moles/Vol] 4.1 mmol/L Normal 3.5-5.1 [facility] Comment on above: Performed By: #### L 100.0100, L500.2500 ####[facility] [address] [place], [address] Sodium [Moles/Vol] 133 mmol/L Low 136-145 [facility] Comment on above: Performed By: #### L 100.0100, L500.2500 ####[facility] [address] [place], [address] Urea nitrogen [Mass/Vol] 57 mg/dL High 7-18 [facility] Comment on above: Performed By: #### L 100.0100, L500.2500 ####[facility] [address] [place], [address] Bedside Glucoseon 04-16-2024 FINGERSTICK GLU 273 mg/dL High 74-106 [facility] Comment on above: Result Comment: FANG GEMENT OF PATIENT CARE PER NURSING PROTOCOL Performed By: #### L 501.080 ####[facility] [address] [place], [address] FINGERSTICK GLU 266 mg/dL High 74-106 [facility] Comment on above: Result Comment: FANG GEMENT OF PATIENT CARE PER NURSING PROTOCOL Performed By: #### L 501.080 ####[facility] [address] [place], [address] FINGERSTICK GLU 142 mg/dL High 74-106 [facility] Comment on above: Result Comment: FANG GEMENT OF PATIENT CARE PER NURSING PROTOCOL Performed By: #### L 501.080 ####[facility] [address] [place], [address] CBC W/Diff, Automatedon - Absolute Lymph 1.44 X10 3/uL Normal 0.83-4.51 [facility] Comment on above: Performed By: #### L 100.0100, L500.2500 ####[facility] [address] [place], [address] Absolute Neut 10.4 X10 3/uL High 2.0-7.7 [facility] Comment on above: Performed By: #### L 100.0100, L500.2500 ####[facility] [address] [place], [address] Basophils/100 WBC (Bld) 0.2 % Normal 0-1 [facility] Comment on above: Performed By: #### L 100.0100, L500.2500 ####[facility] [address] [place], [address] Eosinophils/100 WBC (Bld) 0.5 % Normal 0-5 [facility] Comment on above: Performed By: #### L 100.0100, L500.2500 ####[facility] [address] [place], [address] Erythrocyte distribution width (RBC) [Ratio] 14.9 % High 11.6-14.6 [facility] Comment on above: Performed By: #### L 100.0100, L500.2500 ####[facility] [address] [place], [address] Hematocrit (Bld) [Volume fraction] 32.4 % Low 40-54 [facility] Comment on above: Performed By: #### L 100.0100, L500.2500 ####[facility] [address] [place], [address] Hemoglobin (Bld) [Mass/Vol] 10.0 g/dL Low 13.0-16.5 [facility] Comment on above: Performed By: #### L 100.0100, L500.2500 ####[facility] [address] [place], [address] IG% 0.400 Normal 0.0-0.9 [facility] Comment on above: Result Comment: IG% - Immature Granulocytes (promyelocytes, myelocytes andmetamyelocytes) > 1% indicates that a LEFT SHIFT is Present. Performed By: #### L 100.0100, L500.2500 ####[facility] [address] [place], [address] Lymphocytes/100 WBC (Bld) 10.9 % Low 19-41 [facility] Comment on above: Performed By: #### L 100.0100, L500.2500 ####[facility] [address] [place], [address] MCH (RBC) [Entitic mass] 29.9 pg Normal 27.0-32.0 [facility] Comment on above: Performed By: #### L 100.0100, L500.2500 ####[facility] [address] [place], [address] MCHC (RBC) [Mass/Vol] 30.9 g/dL Low 32-36 [facility] Comment on above: Performed By: #### L 100.0100, L500.2500 ####[facility] [address] [place], [address] MCV (RBC) [Entitic vol] 97.0 fL High 80-94 [facility] Comment on above: Performed By: #### L 100.0100, L500.2500 ####[facility] [address] [place], [address] Monocytes/100 WBC (Bld) 9.6 % Normal 0-10 [facility] Comment on above: Performed By: #### L 100.0100, L500.2500 ####[facility] [address] [place], [address] Neutrophils/100 WBC (Bld) 78.4 % High 47-70 [facility] Comment on above: Performed By: #### L 100.0100, L500.2500 ####[facility] [address] [place], [address] Nucleated RBC (Bld) [#/Vol] 0 10*3/uL Normal 0-5 [facility] Comment on above: Performed By: #### L 100.0100, L500.2500 ####[facility] [address] [place], [address] Platelet mean volume (Bld) [Entitic vol] 11.1 fL Normal 6.2-12.0 [facility] Comment on above: Performed By: #### L 100.0100, L500.2500 ####[facility] [address] [place], [address] Platelets (Bld) [#/Vol] 223 10*3/uL Normal 150-450 [facility] Comment on above: Performed By: #### L 100.0100, L500.2500 ####[facility] [address] [place], [address] RBC (Bld) [#/Vol] 3.34 10*6/uL Low 4.6-6.2 [facility] Comment on above: Performed By: #### L 100.0100, L500.2500 ####[facility] [address] [place], [address] RDW SD 52.6 fl High 35.1-43.9 [facility] Comment on above: Performed By: #### L 100.0100, L500.2500 ####[facility] [address] [place], [address] WBC (Bld) [#/Vol] 13.3 10*3/uL High 4.4-11.0 [facility] Comment on above: Performed By: #### L 100.0100, L500.2500 ####[facility] [address] [place], [address] Consultation - Infectious Dx on 04-16-2024 Consultation - Infectious Dx Normal [facility] Consultation - Nephrologyon 04-16-2024 Consultation - Nephrology Normal [facility] Consultation - Surgicalon Consultation - Surgical Normal [facility] Gram Stainon 04-16-2024 GS Gram Stain 2+ Gram positive cocci 2+ Red Blood Cells 2+ Gram variable yessy No Epithelial cells Normal [facility] Comment on above: Performed By: #### M 100.2000, M100.4001, M100.3000 ####[facility] [address] [place], [address] Hemoglobin A1con 04-16-2024 HbA1c (Bld) [Mass fraction] 9.0 % High 3.8-5.6 [facility] Comment on above: Result Comment: Norm al < 5.7 % Prediabetic 5.7 - 6.4 % Diabetic >or= 6.5 % Please note range changes. Performed By: #### L 501.9985 ####[facility] [address] [place], [address] Lower Ext/No Jt/w/oon 2023 Lower Ext/No Jt/w/o Normal [facility] Bedside Glucoseon 04-15-2024 FINGERSTICK GLU 262 mg/dL High 74-106 [facility] Comment on above: Result Comment: FANG GEMENT OF PATIENT CARE PER NURSING PROTOCOL Performed By: #### L 501.080 ####[facility] [address] [place], [address] FINGERSTICK GLU 188 mg/dL High 74-106 [facility] Comment on above: Result Comment: FANG GEMENT OF PATIENT CARE PER NURSING PROTOCOL Performed By: #### L 501.080 ####[facility] [address] [place], [address] FINGERSTICK GLU 114 mg/dL High 74-106 [facility] Comment on above: Result Comment: FANG GEMENT OF PATIENT CARE PER NURSING PROTOCOL Performed By: #### L 501.080 ####[facility] [address] [place], [address] FINGERSTICK GLU 117 mg/dL High 74-106 [facility] Comment on above: Result Comment: FANG VAZQUEZ OF PATIENT CARE PER NURSING PROTOCOL Performed By: #### L 501.080 ####[facility] [address] [place], [address] CBC W/Diff, Automatedon 11-2 -2023 Absolute Lymph 1.56 X10 3/uL Normal 0.83-4.51 [facility] Comment on above: Performed By: #### L 300.3900, L500.4050, L501.9520, L100.0100 ####[facility] [address] [place], [address] Absolute Neut 9.4 X10 3/uL High 2.0-7.7 [facility] Comment on above: Performed By: #### L 300.3900, L500.4050, L501.9520, L100.0100 ####[facility] [address] [place], [address] Basophils/100 WBC (Bld) 0.2 % Normal 0-1 [facility] Comment on above: Performed By: #### L 300.3900, L500.4050, L501.9520, L100.0100 ####[facility] [address] [place], [address] Eosinophils/100 WBC (Bld) 0.3 % Normal 0-5 [facility] Comment on above: Performed By: #### L 300.3900, L500.4050, L501.9520, L100.0100 ####[facility] [address] [place], [address] Erythrocyte distribution width (RBC) [Ratio] 15.0 % High 11.6-14.6 [facility] Comment on above: Performed By: #### L 300.3900, L500.4050, L501.9520, L100.0100 ####[facility] [address] [place], [address] Hematocrit (Bld) [Volume fraction] 31.9 % Low 40-54 [facility] Comment on above: Performed By: #### L 300.3900, L500.4050, L501.9520, L100.0100 ####[facility] [address] [place], [address] Hemoglobin (Bld) [Mass/Vol] 9.8 g/dL Low 13.0-16.5 [facility] Comment on above: Performed By: #### L 300.3900, L500.4050, L501.9520, L100.0100 ####[facility] [address] [place], [address] IG% 0.500 Normal 0.0-0.9 [facility] Comment on above: Result Comment: IG% - Immature Granulocytes (promyelocytes, myelocytes andmetamyelocytes) > 1% indicates that a LEFT SHIFT is Present. Performed By: #### L 300.3900, L500.4050, L501.9520, L100.0100 ####[facility] [address] [place], [address] Lymphocytes/100 WBC (Bld) 12.7 % Low 19-41 [facility] Comment on above: Performed By: #### L 300.3900, L500.4050, L501.9520, L100.0100 ####[facility] [address] [place], [address] MCH (RBC) [Entitic mass] 29.8 pg Normal 27.0-32.0 [facility] Comment on above: Performed By: #### L 300.3900, L500.4050, L501.9520, L100.0100 ####[facility] [address] [place], [address] MCHC (RBC) [Mass/Vol] 30.7 g/dL Low 32-36 [facility] Comment on above: Performed By: #### L 300.3900, L500.4050, L501.9520, L100.0100 ####[facility] [address] [place], [address] MCV (RBC) [Entitic vol] 97.0 fL High 80-94 [facility] Comment on above: Performed By: #### L 300.3900, L500.4050, L501.9520, L100.0100 ####[facility] [address] [place], [address] Monocytes/100 WBC (Bld) 9.6 % Normal 0-10 [facility] Comment on above: Performed By: #### L 300.3900, L500.4050, L501.9520, L100.0100 ####[facility] [address] [place], [address] Neutrophils/100 WBC (Bld) 76.7 % High 47-70 [facility] Comment on above: Performed By: #### L 300.3900, L500.4050, L501.9520, L100.0100 ####[facility] [address] [place], [address] Nucleated RBC (Bld) [#/Vol] 0 10*3/uL Normal 0-5 [facility] Comment on above: Performed By: #### L 300.3900, L500.4050, L501.9520, L100.0100 ####[facility] [address] [place], [address] Platelet mean volume (Bld) [Entitic vol] 11.1 fL Normal 6.2-12.0 [facility] Comment on above: Performed By: #### L 300.3900, L500.4050, L501.9520, L100.0100 ####[facility] [address] [place], [address] Platelets (Bld) [#/Vol] 238 10*3/uL Normal 150-450 [facility] Comment on above: Performed By: #### L 300.3900, L500.4050, L501.9520, L100.0100 ####[facility] [address] [place], [address] RBC (Bld) [#/Vol] 3.29 10*6/uL Low 4.6-6.2 [facility] Comment on above: Performed By: #### L 300.3900, L500.4050, L501.9520, L100.0100 ####[facility] [address] [place], [address] RDW SD 52.9 fl High 35.1-43.9 [facility] Comment on above: Performed By: #### L 300.3900, L500.4050, L501.9520, L100.0100 ####[facility] [address] [place], [address] WBC (Bld) [#/Vol] 12.2 10*3/uL High 4.4-11.0 [facility] Comment on above: Performed By: #### L 300.3900, L500.4050, L501.9520, L100.0100 ####[facility] [address] [place], [address] CRPon 04-15-2024 C-REACTIVE PROT 232.00 mg/L High 0.0-3.0 [facility] Comment on above: Order Comment: Comme nts: Add onto previous labs if possible Result Comment: C-Re active Protein (CRP) provides useful information for thediagnosis, therapy and monitoring of inflammatory processesand associated diseases. For the evaluation of Relative Riskfor Cardiovascular Disease, a High Sensitivity CRP (HSCRP)should be ordered. Performed By: #### L 501.6710, L101.9900 ####[facility] [address] [place], [address] Comprehensive Metabolic Prof ilon 04-15-2024 Albumin [Mass/Vol] 2.3 g/dL Low 3.2-5.0 [facility] Comment on above: Performed By: #### L 300.3900, L500.4050, L501.9520, L100.0100 ####[facility] [address] [place], [address] Albumin/Globulin [Mass ratio] 0.5 {ratio} Low 0.9-2.4 [facility] Comment on above: Performed By: #### L 300.3900, L500.4050, L501.9520, L100.0100 ####[facility] [address] [place], [address] ALK P 49 U/L Normal 45-117 [facility] Comment on above: Performed By: #### L 300.3900, L500.4050, L501.9520, L100.0100 ####[facility] [address] [place], [address] ALT [Catalytic activity/Vol] 13 U/L Low 16-61 [facility] Comment on above: Performed By: #### L 300.3900, L500.4050, L501.9520, L100.0100 ####[facility] [address] [place], [address] AST [Catalytic activity/Vol] 9 U/L Low 15-37 [facility] Comment on above: Performed By: #### L 300.3900, L500.4050, L501.9520, L100.0100 ####[facility] [address] [place], [address] Bilirubin [Mass/Vol] 0.50 mg/dL Normal 0.20-1.00 [facility] Comment on above: Result Comment: For patients on eltrombopag therapy, use of [place] TBIL is not recommended. Performed By: #### L 300.3900, L500.4050, L501.9520, L100.0100 ####[facility] [address] [place], [address] BUN/CRE 10.6 RATIO Normal 10-20 [facility] Comment on above: Performed By: #### L 300.3900, L500.4050, L501.9520, L100.0100 ####[facility] [address] [place], [address] CA,Total 8.4 mg/dL Low 8.5-10.1 [facility] Comment on above: Performed By: #### L 300.3900, L500.4050, L501.9520, L100.0100 ####[facility] [address] [place], [address] Chloride [Moles/Vol] 97 mmol/L Low 98-107 [facility] Comment on above: Performed By: #### L 300.3900, L500.4050, L501.9520, L100.0100 ####[facility] [address] [place], [address] CO2 [Moles/Vol] 28.0 mmol/L Normal 21.0-32.0 [facility] Comment on above: Performed By: #### L 300.3900, L500.4050, L501.9520, L100.0100 ####[facility] [address] [place], [address] Creatinine [Mass/Vol] 3.79 mg/dL High 0.70-1.30 [facility] Comment on above: Result Comment: The validity of the calculated GFR GFRAA in patients over70 years has not been determined. Clinical correlation isessential. Performed By: #### L 300.3900, L500.4050, L501.9520, L100.0100 ####[facility] [address] [place], [address] ECRCL 16.15 ml/min Normal [facility] Comment on above: Performed By: #### L 300.3900, L500.4050, L501.9520, L100.0100 ####[facility] [address] [place], [address] EST GFR - AA 20 mL/min Low >60 [facility] Comment on above: Result Comment: Afri can [place] GFR Calc Performed By: #### L 300.3900, L500.4050, L501.9520, L100.0100 ####[facility] [address] [place], [address] GAP 10 Normal 5-15 [facility] Comment on above: Performed By: #### L 300.3900, L500.4050, L501.9520, L100.0100 ####[facility] [address] [place], [address] GFR/1.73 sq M.predicted among non-blacks MDRD (S/P/Bld) [Vol rate/Area] 16 mL/min/{1.73_m2} Low >60 [facility] Comment on above: Result Comment: Non- GFR Calc Performed By: #### L 300.3900, L500.4050, L501.9520, L100.0100 ####[facility] [address] [place], [address] Globulin (S) [Mass/Vol] 4.7 g/dL High 2.2-4.2 [facility] Comment on above: Performed By: #### L 300.3900, L500.4050, L501.9520, L100.0100 ####[facility] [address] [place], [address] Glucose [Mass/Vol] 124 mg/dL High 74-106 [facility] Comment on above: Result Comment: Fast ing Glucose result from 100 to 125 mg/dLsuggests IMPAIRED HOMEOSTASIS per A.D.A. criteria. Performed By: #### L 300.3900, L500.4050, L501.9520, L100.0100 ####[facility] [address] [place], [address] Potassium [Moles/Vol] 3.8 mmol/L Normal 3.5-5.1 [facility] Comment on above: Performed By: #### L 300.3900, L500.4050, L501.9520, L100.0100 ####[facility] [address] [place], [address] Sodium [Moles/Vol] 135 mmol/L Low 136-145 [facility] Comment on above: Performed By: #### L 300.3900, L500.4050, L501.9520, L100.0100 ####[facility] [address] [place], [address] T PROT 7.0 g/dL Normal 6.4-8.2 [facility] Comment on above: Performed By: #### L 300.3900, L500.4050, L501.9520, L100.0100 ####[facility] [address] [place], [address] Urea nitrogen [Mass/Vol] 40 mg/dL High 7-18 [facility] Comment on above: Performed By: #### L 300.3900, L500.4050, L501.9520, L100.0100 ####[facility] [address] [place], [address] Erythrocyte Sed Rateon 04-15 SED RATE 68 mm/hr High 0-20 [facility] Comment on above: Order Comment: Comme nts: Add onto previous labs if possible Performed By: #### L 501.6710, L101.9900 ####[facility] [address] [place], [address] Gram Stainon 04-15-2024 GS Positive Normal [facility] Comment on above: Performed By: #### M 100.2000, M100.3000 ####[facility] [address] [place], [address] M8200.1075on 04-15-2024 M8200.1075 Pending MRSA PCR MRSA NEGATIVE STAPH. AUREUS PCR STAPH. AUREUS NEGATIVE Normal [facility] Comment on above: Performed By: #### M 8200.1075 ####[facility] [address] [place], [address] Prothrombin Time w/INRon INR Coag (PPP) [Relative time] 1.4 {INR} Normal [facility] Comment on above: Performed By: #### L 300.3900, L500.4050, L501.9520, L100.0100 ####[facility] [address] [place], [address] PT Coag (PPP) [Time] 16.7 s High 11.7-14.9 [facility] Comment on above: Performed By: #### L 300.3900, L500.4050, L501.9520, L100.0100 ####[facility] [address] [place], [address] Thyroid Stim Hormone (TSH)on 04-15-2024 TSH 0.665 uIU/mL Normal 0.358-3.740 [facility] Comment on above: Performed By: #### L 300.3900, L500.4050, L501.9520, L100.0100 ####[facility] [address] [place], [address] Ankle Brachial Indexon 04-14 Ankle Brachial Index Normal [facility] Bedside Glucoseon 04-14-2024 FINGERSTICK GLU 310 mg/dL High 74-106 [facility] Comment on above: Result Comment: FANG GEMENT OF PATIENT CARE PER NURSING PROTOCOL Performed By: #### L 501.080 ####[facility] [address] [place], [address] FINGERSTICK GLU 190 mg/dL High 74-106 [facility] Comment on above: Result Comment: FANG GEMENT OF PATIENT CARE PER NURSING PROTOCOL Performed By: #### L 501.080 ####[facility] [address] [place], [address] CBC W/Diff, Automatedon 03-24 Absolute Lymph 1.36 X10 3/uL Normal 0.83-4.51 [facility] Comment on above: Performed By: #### L 503.6005, L500.4050, L100.0100 ####[facility] [address] [place], [address] Absolute Neut 11.3 X10 3/uL High 2.0-7.7 [facility] Comment on above: Performed By: #### L 503.6005, L500.4050, L100.0100 ####[facility] [address] [place], [address] Basophils/100 WBC (Bld) 0.3 % Normal 0-1 [facility] Comment on above: Performed By: #### L 503.6005, L500.4050, L100.0100 ####[facility] [address] [place], [address] Eosinophils/100 WBC (Bld) 0.3 % Normal 0-5 [facility] Comment on above: Performed By: #### L 503.6005, L500.4050, L100.0100 ####[facility] [address] [place], [address] Erythrocyte distribution width (RBC) [Ratio] 15.1 % High 11.6-14.6 [facility] Comment on above: Performed By: #### L 503.6005, L500.4050, L100.0100 ####[facility] [address] [place], [address] Hematocrit (Bld) [Volume fraction] 35.3 % Low 40-54 [facility] Comment on above: Performed By: #### L 503.6005, L500.4050, L100.0100 ####[facility] [address] [place], [address] Hemoglobin (Bld) [Mass/Vol] 11.3 g/dL Low 13.0-16.5 [facility] Comment on above: Performed By: #### L 503.6005, L500.4050, L100.0100 ####[facility] [address] [place], [address] IG% 0.600 Normal 0.0-0.9 [facility] Comment on above: Result Comment: IG% - Immature Granulocytes (promyelocytes, myelocytes andmetamyelocytes) > 1% indicates that a LEFT SHIFT is Present. Performed By: #### L 503.6005, L500.4050, L100.0100 ####[facility] [address] [place], [address] Lymphocytes/100 WBC (Bld) 9.7 % Low 19-41 [facility] Comment on above: Performed By: #### L 503.6005, L500.4050, L100.0100 ####[facility] [address] [place], [address] MCH (RBC) [Entitic mass] 30.5 pg Normal 27.0-32.0 [facility] Comment on above: Performed By: #### L 503.6005, L500.4050, L100.0100 ####[facility] [address] [place], [address] MCHC (RBC) [Mass/Vol] 32.0 g/dL Normal 32-36 [facility] Comment on above: Performed By: #### L 503.6005, L500.4050, L100.0100 ####[facility] [address] [place], [address] MCV (RBC) [Entitic vol] 95.1 fL High 80-94 [facility] Comment on above: Performed By: #### L 503.6005, L500.4050, L100.0100 ####[facility] [address] [place], [address] Monocytes/100 WBC (Bld) 8.6 % Normal 0-10 [facility] Comment on above: Performed By: #### L 503.6005, L500.4050, L100.0100 ####[facility] [address] [place], [address] Neutrophils/100 WBC (Bld) 80.5 % High 47-70 [facility] Comment on above: Performed By: #### L 503.6005, L500.4050, L100.0100 ####[facility] [address] [place], [address] Nucleated RBC (Bld) [#/Vol] 0 10*3/uL Normal 0-5 [facility] Comment on above: Performed By: #### L 503.6005, L500.4050, L100.0100 ####[facility] [address] [place], [address] Platelet mean volume (Bld) [Entitic vol] 10.8 fL Normal 6.2-12.0 [facility] Comment on above: Performed By: #### L 503.6005, L500.4050, L100.0100 ####[facility] [address] [place], [address] Platelets (Bld) [#/Vol] 255 10*3/uL Normal 150-450 [facility] Comment on above: Performed By: #### L 503.6005, L500.4050, L100.0100 ####[facility] [address] [place], [address] RBC (Bld) [#/Vol] 3.71 10*6/uL Low 4.6-6.2 [facility] Comment on above: Performed By: #### L 503.6005, L500.4050, L100.0100 ####[facility] [address] [place], [address] RDW SD 52.1 fl High 35.1-43.9 [facility] Comment on above: Performed By: #### L 503.6005, L500.4050, L100.0100 ####[facility] [address] [place], [address] WBC (Bld) [#/Vol] 14.0 10*3/uL High 4.4-11.0 [facility] Comment on above: Performed By: #### L 503.6005, L500.4050, L100.0100 ####[facility] [address] [place], [address] CNOVon 04-14-2024 [facility] 04-14-2024 C-REACTIVE PROT 267.00 mg/L High 0.0-3.0 [facility] Comment on above: Result Comment: C-Re active Protein (CRP) provides useful information for thediagnosis, therapy and monitoring of inflammatory processesand associated diseases. For the evaluation of Relative Riskfor Cardiovascular Disease, a High Sensitivity CRP (HSCRP)should be ordered. Performed By: #### L 101.9900, L501.6710 ####[facility] [address] [place], [address] Comprehensive Metabolic Prof ilon 04-14-2024 Albumin [Mass/Vol] 2.7 g/dL Low 3.2-5.0 [facility] Comment on above: Performed By: #### L 503.6005, L500.4050, L100.0100 ####[facility] [address] [place], [address] Albumin/Globulin [Mass ratio] 0.5 {ratio} Low 0.9-2.4 [facility] Comment on above: Performed By: #### L 503.6005, L500.4050, L100.0100 ####[facility] [address] [place], [address] ALK P 62 U/L Normal 45-117 [facility] Comment on above: Performed By: #### L 503.6005, L500.4050, L100.0100 ####[facility] [address] [place], [address] ALT [Catalytic activity/Vol] 11 U/L Low 16-61 [facility] Comment on above: Performed By: #### L 503.6005, L500.4050, L100.0100 ####[facility] [address] [place], [address] AST [Catalytic activity/Vol] 15 U/L Normal 15-37 [facility] Comment on above: Performed By: #### L 503.6005, L500.4050, L100.0100 ####[facility] [address] [place], [address] Bilirubin [Mass/Vol] 0.50 mg/dL Normal 0.20-1.00 [facility] Comment on above: Result Comment: For patients on eltrombopag therapy, use of [place] TBIL is not recommended. Performed By: #### L 503.6005, L500.4050, L100.0100 ####[facility] [address] [place], [address] BUN/CRE 9.5 RATIO Low 10-20 [facility] Comment on above: Performed By: #### L 503.6005, L500.4050, L100.0100 ####[facility] [address] [place], [address] CA,Total 8.6 mg/dL Normal 8.5-10.1 [facility] Comment on above: Performed By: #### L 503.6005, L500.4050, L100.0100 ####[facility] [address] [place], [address] Chloride [Moles/Vol] 96 mmol/L Low 98-107 [facility] Comment on above: Performed By: #### L 503.6005, L500.4050, L100.0100 ####[facility] [address] [place], [address] CO2 [Moles/Vol] 32.0 mmol/L Normal 21.0-32.0 [facility] Comment on above: Performed By: #### L 503.6005, L500.4050, L100.0100 ####[facility] [address] [place], [address] Creatinine [Mass/Vol] 2.84 mg/dL High 0.70-1.30 [facility] Comment on above: Result Comment: The validity of the calculated GFR GFRAA in patients over70 years has not been determined. Clinical correlation isessential. Performed By: #### L 503.6005, L500.4050, L100.0100 ####[facility] [address] [place], [address] ECRCL 21.22 ml/min Normal [facility] Comment on above: Performed By: #### L 503.6005, L500.4050, L100.0100 ####[facility] [address] [place], [address] EST GFR - AA 27 mL/min Low >60 [facility] Comment on above: Result Comment: Afri can [place] GFR Calc Performed By: #### L 503.6005, L500.4050, L100.0100 ####[facility] [address] [place], [address] GAP 8 Normal 5-15 [facility] Comment on above: Performed By: #### L 503.6005, L500.4050, L100.0100 ####[facility] [address] [place], [address] GFR/1.73 sq M.predicted among non-blacks MDRD (S/P/Bld) [Vol rate/Area] 23 mL/min/{1.73_m2} Low >60 [facility] Comment on above: Result Comment: Non- GFR Calc Performed By: #### L 503.6005, L500.4050, L100.0100 ####[facility] [address] [place], [address] Globulin (S) [Mass/Vol] 5.3 g/dL High 2.2-4.2 [facility] Comment on above: Performed By: #### L 503.6005, L500.4050, L100.0100 ####[facility] [address] [place], [address] Glucose [Mass/Vol] 130 mg/dL High 74-106 [facility] Comment on above: Result Comment: Fast ing Glucose result greater than or equal to 126 mg/dLsuggests DIABETES MELLITUS per A.D.A. criteria. Performed By: #### L 503.6005, L500.4050, L100.0100 ####[facility] [address] [place], [address] Potassium [Moles/Vol] 3.7 mmol/L Normal 3.5-5.1 [facility] Comment on above: Performed By: #### L 503.6005, L500.4050, L100.0100 ####[facility] [address] [place], [address] Sodium [Moles/Vol] 136 mmol/L Normal 136-145 [facility] Comment on above: Performed By: #### L 503.6005, L500.4050, L100.0100 ####[facility] [address] [place], [address] T PROT 8.0 g/dL Normal 6.4-8.2 [facility] Comment on above: Performed By: #### L 503.6005, L500.4050, L100.0100 ####[facility] [address] [place], [address] Urea nitrogen [Mass/Vol] 27 mg/dL High 7-18 [facility] Comment on above: Performed By: #### L 503.6005, L500.4050, L100.0100 ####[facility] [address] [place], [address] Emergency Department Summary on 04-14-2024 Emergency Department Summary Normal [facility] Erythrocyte Sed Rateon 04-14 SED RATE 87 mm/hr High 0-20 [facility] Comment on above: Performed By: #### L 101.9900, L501.6710 ####[facility] [address] [place], [address] Foot min 3 Viewson 4 Foot min 3 Views Normal [facility] H AND P Exam - Hospitaliston 04-14-2024 H&P Exam - Hospitalist Normal [facility] Lactic Acidon 04-14-2024 Lactate [Moles/Vol] 1.6 mmol/L Normal 0.4-1.9 [facility] Comment on above: Order Comment: Y Performed By: #### L 503.6005, L500.4050, L100.0100 ####[facility] [address] [place], [address] CNPNon 04-13-2024 CNPN Normal [facility] CNPNon 04-05-2024 CNPN Normal [facility] CNOVon 03-28-2024 CNOV Normal [facility] Comprehensive metabolic 2000 panelon 03-28-2024 Albumin [Mass/Vol] 3.2 g/dL Low 3.9-4.9 [facility] Comment on above: Order Comment: Speci men Type: BLOOD SPECIMENOrdering Facility: [facility] Address: [address] [place] [address] Performed By: #### 2 4323-8 ####[facility] LABCLIA [id number] [place] [address] [place] ALP [Catalytic activity/Vol] 65 U/L Normal 38-113 [facility] Comment on above: Order Comment: Speci men Type: BLOOD SPECIMENOrdering Facility: [facility] Address: [address] [place] [address] Performed By: #### 2 4323-8 ####[facility] LABCLIA [id number] [place] [address] [place] ALT [Catalytic activity/Vol] 10 U/L Normal 10-54 [facility] Comment on above: Order Comment: Speci men Type: BLOOD SPECIMENOrdering Facility: [facility] Address: [address] [place] [address] Performed By: #### 2 4323-8 ####[facility] LABCLIA [id number] [place] [id number] [place] Anion gap [Moles/Vol] 12 mmol/L Normal 8-15 [facility] Comment on above: Order Comment: Speci men Type: BLOOD SPECIMENOrdering Facility: [facility] Address: [address] [place], [place] [address] Performed By: #### 2 4323-8 ####[facility] LABCLIA [id number] [place] [address] [place] AST [Catalytic activity/Vol] 12 U/L Low 14-40 [facility] Comment on above: Order Comment: Speci men Type: BLOOD SPECIMENOrdering Facility: [facility] Address: [address] [place] [address] Performed By: #### 2 4323-8 ####[facility] LABCLIA [id number] [place] [address] [place] Bilirubin [Mass/Vol] 0.2 mg/dL Normal 0.2-1.3 [facility] Comment on above: Order Comment: Speci men Type: BLOOD SPECIMENOrdering Facility: [facility] Address: [address] [place] [address] Performed By: #### 2 4323-8 ####[facility] LABCLIA [id number] [place] [address] [place] Calcium [Mass/Vol] 8.9 mg/dL Normal 8.5-10.2 [facility] Comment on above: Order Comment: Speci men Type: BLOOD SPECIMENOrdering Facility: [facility] Address: [address] [place] [address] Performed By: #### 2 4323-8 ####[facility] LABCLIA [id number] [place] [id number] [place] Chloride [Moles/Vol] 93 mmol/L Low 98-107 [facility] Comment on above: Order Comment: Speci men Type: BLOOD SPECIMENOrdering Facility: [facility] Address: [address] [place], [place] [address] Performed By: #### 2 4323-8 ####[facility] LABCLIA [id number] [place] [address] [place] CO2 [Moles/Vol] 28 mmol/L Normal 22-30 [facility] Comment on above: Order Comment: Speci men Type: BLOOD SPECIMENOrdering Facility: [facility] Address: [address] [place] [address] Performed By: #### 2 4323-8 ####[facility] LABIA [id number] [place] [address] [place] Creatinine [Mass/Vol] 4.23 mg/dL High 0.73-1.22 [facility] Comment on above: Order Comment: Speci men Type: BLOOD SPECIMENOrdering Facility: [facility] Address: [address] [place] [address] Performed By: #### 2 4323-8 ####[facility] [id number] [place] [address] [place] Creatinine and Glomerular filtration rate.predicted panel (S/P/Bld) 13 mL/min/1.73m??? Low >=60 [facility] Comment on above: Order Comment: Speci men Type: BLOOD SPECIMENOrdering Facility: [facility] Address: [address] [place] [address] Result Comment: Tessa mated Glomerular Filtration Rate [...] actual GFR. Performed By: #### 2 4323-8 ####[facility] [id number] [place] [address] [place] Glucose [Mass/Vol] 371 mg/dL High 74-99 [facility] Comment on above: Order Comment: Speci men Type: BLOOD SPECIMENOrdering Facility: [facility] Address: [address] [place] [id number] Result Comment: The [place] Diabetes Association (ADA) provides guidance for cutoff [...] Standards of Medical Care in Diabetes 2016, [place] Diabetes Association. Diabetes Care. 2016.39(Suppl 1). Performed By: #### 2 4323-8 ####[facility] LABIA [id number] [place] [address] [place] Potassium [Moles/Vol] 5.0 mmol/L Normal 3.7-5.1 [facility] Comment on above: Order Comment: Speci men Type: BLOOD SPECIMENOrdering Facility: [facility] Address: [address] [place] [address] Performed By: #### 2 4323-8 ####[facility] LABIA [id number] [place] [address] [place] Protein [Mass/Vol] 6.5 g/dL Normal 6.3-8.0 [facility] Comment on above: Order Comment: Speci men Type: BLOOD SPECIMENOrdering Facility: [facility] Address: [address] [place] [address] Performed By: #### 2 4323-8 ####[facility] LABIA [id number] [place] [address] [place] Sodium [Moles/Vol] 133 mmol/L Low 136-144 [facility] Comment on above: Order Comment: Speci men Type: BLOOD SPECIMENOrdering Facility: [facility] Address: [address] [place] [address] Performed By: #### 2 4323-8 ####[facility] LABCLIA [id number] [place] [address] [place] Urea nitrogen [Mass/Vol] 37 mg/dL High 9-24 [facility] Comment on above: Order Comment: Speci men Type: BLOOD SPECIMENOrdering Facility: [facility] Address: [address] [place] [address] Performed By: #### 2 4323-8 ####[facility] LABCLIA [id number] [place] [address] [place] HbA1c (Bld)on 03-28-2024 Average glucose Estimated from glycated hemoglobin (Bld) [Mass/Vol] 206 mg/dL Normal [facility] Comment on above: Order Comment: Speci men Type: BLOOD SPECIMENOrdering Facility: [facility] Address: [address] [place] [address] Result Comment: eAG: (Estimated average glucose) is a calculated value from HgbA1c and is senior customer service representative of the average blood glucose level in the last 2-3 month period. Performed By: #### 5 5454-3 ####[facility] LABCLIA [id number] [place] [address] [place] HbA1c (Bld) [Mass fraction] 8.8 % High 4.3-5.6 [facility] Comment on above: Order Comment: Speci men Type: BLOOD SPECIMENOrdering Facility: [facility] Address: [address] [place] [address] Result Comment: Amer [place] Diabetes Association guidelines indicate that patients with HgbA1c in the range 5.7-6.4% are at increased risk for development of diabetes, and intervention by lifestyle modification may be beneficial. HgbA1c greater or equal to 6.5% is considered diagnostic of diabetes. Performed By: #### 5 5454-3 ####[facility] LABCLIA [id number] [place] [address] [place] CNOVon 01-06-2024 CNOV Normal [facility] Fox KORon 09-08-2023 Potassium [Moles/Vol] 3.7 mmol/L Normal 3.5-5.0 [facility] Comment on above: Performed By: #### K OR #### [facility] [address] [place] [address] LABORATORYOrdered By: Miguelina Ramirez on 09-08-2023 Blood Glucose Testing Reason Routine (09/08/23 2:30 PM) [facility] Work Phone: Glucose [Mass/Vol] 111 mg/dL Normal 82 - 115 mg/dL [facility] Work Phone: LABORATORYOrdered By: Nelli Gar on 09-08-2023 Potassium [Moles/Vol] 3.7 mmol/L Normal 3.5 - 5.0 mEq/L [facility] LABORATORYOrdered By: Kailey Sanchez on 09-08-2023 Glucose [Mass/Vol] 147 mg/dL High 82 - 115 mg/dL [facility] Work Phone: HEMOGLOBIN A1C (POC)on 12-06 HbA1c (Bld) [Mass fraction] 8.1 % Abnormal 4.2 - 5.6 % [facility] HEMOGLOBIN A1C (POC)on 09-06 HbA1c (Bld) [Mass fraction] 8.4 % Abnormal 4.2 - 5.6 % [facility] Comprehensive metabolic 2000 panelon 03-06-2022 Albumin [Mass/Vol] 3.9 g/dL 3.9 - 4.9 g/dL [facility] ALP [Catalytic activity/Vol] 56 U/L 38 - 113 U/L [facility] ALT [Catalytic activity/Vol] 17 U/L 10 - 54 U/L [facility] Anion gap [Moles/Vol] 13 mmol/L 9 - 18 mmol/L [facility] AST [Catalytic activity/Vol] 13 U/L Low 14 - 40 U/L [facility] Bilirubin [Mass/Vol] 0.4 mg/dL 0.2 - 1 .3 mg/dL [facility] Calcium [Mass/Vol] 9.1 mg/dL 8.5 - 10. 2 mg/dL [facility] Chloride [Moles/Vol] 95 mmol/L Low 97 - 10 5 mmol/L [facility] CO2 [Moles/Vol] 30 mmol/L 22 - 30 mmol/L [facility] Creatinine [Mass/Vol] 4.13 mg/dL High 0.73 - 1.22 mg/dL [facility] Estimated Glomerular Filtration Rate 14 mL/min/1.73m Low >=60 mL/min/1.73 m [facility] Glucose [Mass/Vol] 239 mg/dL High 74 - 99 mg/dL [facility] Potassium [Moles/Vol] 4.9 mmol/L 3.7 - 5.1 mmol/L [facility] Protein [Mass/Vol] 7.2 g/dL 6.3 - 8.0 g/dL [facility] Sodium [Moles/Vol] 138 mmol/L 136 - 144 mmol/L [facility] Urea nitrogen [Mass/Vol] 49 mg/dL High 9 - 24 mg/dL [facility] LIPID PANEL, NONFASTINGon Cholesterol [Mass/Vol] 146 mg/dL <200 mg/dL [facility] HDL Cholesterol, Nonfasting 46 mg/dL >39 mg/dL [facility] LDL Cholesterol, Nonfasting 89 mg/dL <100 mg/dL [facility] LDL/HDL Ratio, Nonfasting 1.93 mg/dL <2.54 mg/dL [facility] Non HDL Cholesterol, Nonfasting 100 mg/dL <130 mg/dL [facility] Total Chol/HDL Ratio, Nonfasting 3.17 mg/dL <5.10 mg/dL [facility] Triglycerides, Nonfasting 55 mg/dL <150 mg/dL [facility] VLDL Cholesterol, Nonfasting 11 mg/dL <30 mg/dL [facility] HbA1c (Bld)on 03-05-2022 Average glucose Estimated from glycated hemoglobin (Bld) [Mass/Vol] 209 mg/dL [facility] HbA1c (Bld) [Mass fraction] 8.9 % High 4.3 - 5.6 % [facility] Basophil percentageon 2021 Chloride [Moles/Vol] 103 mmol/L 98-107 [facility] Work Phone: Glucose [Mass/Vol] 263 mg/dL 74-106 [facility] Work Phone: Comment on above: Glucose result great er than or equal to 200 mg/dLsuggests DIABETES MELLITUS per A.D.A. criteria. Potassium [Moles/Vol] 4.3 mmol/L 3.5-5.1 [facility] Work Phone: [phone] Sodium [Moles/Vol] 138 mmol/L 136-145 [facility] Work Phone: [phone] WBC (Bld) [#/Vol] 8.1 10*3/uL 4.4-11.0 [facility] Work Phone: [phone] Blood erythrocytes count (nu mber/volume)on 11-06-2021 RBC (Bld) [#/Vol] 3.75 10*6/uL 4.6-6.2 [facility] Work Phone: [phone] Blood hemoglobin measurement (mass/volume)on 11-06-2021 Hemoglobin (Bld) [Mass/Vol] 11.4 g/dL 13.0-16.5 [facility] Work Phone: [phone] Blood platelet mean volumeon 11-06-2021 Platelet mean volume (Bld) [Entitic vol] 11.2 fL 6.2-12.0 [facility] Work Phone: [phone] Determination of erythrocyte mean corpuscular volume (MCV)on 11-06-2021 MCV (RBC) [Entitic vol] 94.9 fL 80-94 [facility] Work Phone: [phone] Hematocrit Auto (Bld) [Volum e fraction]on 11-06-2021 Hematocrit (Bld) [Volume fraction] 35.6 % 40-54 [facility] Work Phone: [phone] Laboratory - Chemistry and C hemistry - challengeon 11-06-2021 CO2 [Moles/Vol] 30.0 mmol/L 21.0-32.0 [facility] Work Phone: [phone] Urea nitrogen/Creatinine [Mass ratio] 12.6 mg/mg 10-20 [facility] Work Phone: [phone] Laboratory - Hematology and Cell countson 11-06-2021 Erythrocyte distribution width (RBC) [Entitic vol] 43.0 fL 35.1-43.9 [facility] Work Phone: [phone] Erythrocyte distribution width (RBC) [Ratio] 12.4 % 11.6-14.6 [facility] Work Phone: [phone] MCH (RBC) [Entitic mass] 30.4 pg 27.0-32.0 [facility] Work Phone: [phone] MCHC Auto (RBC) [Mass/Vol]on 11-06-2021 MCHC (RBC) [Mass/Vol] 32.0 g/dL 32-36 [facility] Work Phone: No Panel Informationon 11-06 Estimated Creatinine Clearance Calc 12.37 ml/min [facility] Work Phone: [phone] Estimated GFR (MDRD) Amer 17 mL/min >60 [facility] Work Phone: Comment on above: GFR Calc Estimated GFR (MDRD) Non-Af Amer 14 mL/min >60 [facility] Work Phone: Comment on above: Non- GFR Calc Platelets bldon 11-06-2021 Platelets (Bld) [#/Vol] 160 10*3/uL 150-450 [facility] Work Phone: [phone] Serum or plasma calcium lilli urement (mass/volume)on 11-06-2021 Calcium [Mass/Vol] 9.0 mg/dL 8.5-10.1 [facility] Work Phone: [phone] Serum or plasma creatinine m easurement (mass/volume)on 11-06-2021 Creatinine [Mass/Vol] 4.30 mg/dL 0.70-1.30 [facility] Work Phone: Comment on above: The validity of the calculated GFR & GFRAA in patients over 70 years has not been determined. Clinical correlation is essential. Serum or plasma urea nitroge n measurement (mass/volume)on 11-06-2021 Urea nitrogen [Mass/Vol] 54 mg/dL 7-18 [facility] Work Phone: [phone] Thin prep Papanicolaou smear with manual screeningon 11-06-2021 Thin prep Papanicolaou smear with manual screening 5 5-15 [facility] Work Phone: XR Foot - bilateral AP and L ateral and obliqueon 03-04-2021 IMPRESSION: No acute bony finding. Plantar spurs [employer] Lot Attendant: NICHELLE Transcribe Date/Time: Mar 04 2021 12:13P Dictated by : FERNANDO JANE MD This examination was interpreted and the report reviewed and electronically signed by: FERNANDO JANE MD on Mar 04 2021 12:15PM [facility] * * *Final Report* [...] these nonweightbearing views DIVISION OF RADIOLOGY Provider, [facility] - 03/04/2021 * * *Final Report* * [...] IMPRESSION: No acute bony finding. Plantar spurs [employer] Lot Attendant: NICHELLE Transcribe Date/Time: Mar 04 2021 12:13P Dictated by : FERNANDO JANE MD This examination was interpreted and the report reviewed and electronically signed by: FERNANDO JANE MD on Mar 04 2021 12:15PM EST [facility] Radiology Study observation (narrative) [facility] XR Foot - bilateral AP and L ateral and obliqueOrdered By: Ccf Provider on 03-04-2021 [facility] Office Visiton 10-27-2016 Documentation of current medications (procedure) Done Invalid Interpretation Code [facility] Work Phone: [phone] Fall risk assessment No Invalid Interpretation Code [facility] Work Phone: [phone] Protein mass conc Done [facility] Work Phone: [phone] Replaced Document: Eileen Desiree CG Observationson 10-27-2016 EKG QRS axis -23 deg [facility] Work Phone: [phone] electrocardiogram interpretation Possible atrial fibrillation - Nonspecific T-abnormality. ABNORMAL Invalid Interpretation Code [facility] Work Phone: [phone] GE use only - for [employer] import when terms are not otherwise specified 431 ms Invalid Interpretation Code [facility] Work Phone: [phone] Interpretation Possible atrial fibrillation - Nonspecific T-abnormality. ABNORMAL [facility] Work Phone: P Garrison 1 deg [facility] Work Phone: P wave axis, electrocardiogram 1 deg Invalid Interpretation Code [facility] Work Phone: MD Interval 0 ms [facility] Work Phone: MD interval, electrocardiogram 0 ms Invalid Interpretation Code [facility] Work Phone: Pulse (Heart Rate) 69 /min Invalid Interpretation Code [facility] Work Phone: QRS axis, electrocardiogram -23 deg Invalid Interpretation Code [facility] Work Phone: QRS Duration 114 ms [facility] Work Phone: QRS duration, electrocardiogram 114 ms Invalid Interpretation Code [facility] Work Phone: QT Interval new path ms [facility] Work Phone: [phone] QT interval, electrocardiogram new path ms Invalid Interpretation Code [facility] Work Phone: [phone] QTc Liriano 431 ms [facility] Work Phone: [phone] T Garrison 90 deg [facility] Work Phone: [phone] T wave axis, electrocardiogram 90 deg Invalid Interpretation Code [facility] Work Phone: [phone] Clinical Lists Update: 10-26-2016 Tobacco smoking status NHIS Never smoker [facility] Work Phone: [phone] Tobacco use CPHS Never smoker Invalid Interpretation Code [facility] Work Phone: [phone] Clinical Lists Update: 10-14-2016 Anion gap 14 mmol/L Invalid Interpretation Code [facility] Work Phone: [phone] Anion gap [Moles/Vol] 14 mmol/L [facility] Work Phone: [phone] Calcium 9.8 mg/dL Invalid Interpretation Code [facility] Work Phone: [phone] Chloride 97 mmol/L Invalid Interpretation Code [facility] Work Phone: [phone] CO2 25 mmol/L Invalid Interpretation Code [facility] Work Phone: [phone] CO2 (BldV) [Partial pressure] 25 mmol/L [facility] Work Phone: [phone] Creatinine 1.69 mg/dL High [facility] Work Phone: [phone] Glucose 264 mg/dL High [facility] Work Phone: [phone] Glucose [Mass/Vol] 264 mg/dL High [facility] Work Phone: [phone] Potassium 4.5 mmol/L Invalid Interpretation Code [facility] Work Phone: [phone] Sodium 136 mmol/L Invalid Interpretation Code [facility] Work Phone: [phone] Thyroid stimulating hormone (TSH) 1.29 u[iU]/mL Invalid Interpretation Code [facility] Work Phone: [phone] Urea nitrogen 21 mg/dL Invalid Interpretation Code [facility] Work Phone: [phone] Clinical Lists Update: Prelo fabric 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 Nando Wiggins MD Work Phone: [facility] 01-29-2025 09:48-0400 Body temperature 97.9 [degF] Dr. Nando Wiggins MD Work Phone: [facility] 01-29-2025 09:48-0400 Diastolic blood pressure 59 mm[Hg] Dr. Nando Wiggins MD Work Phone: [facility] 01-29-2025 09:48-0400 Heart rate 60 /min Dr. Nando Wiggins MD Work Phone: [facility] 01-29-2025 09:48-0400 Respiratory rate 14 /min Dr. Nando Wiggins MD Work Phone: [facility] 01-29-2025 09:48-0400 SaO2% (BldA) [Mass fraction] 96 % Dr. Nando Wiggins MD Work Phone: [facility] 01-29-2025 09:48-0400 Systolic blood pressure 125 mm[Hg] Dr. Nando Wiggins MD Work Phone: [facility] 01-29-2025 05:26-0400 Body mass index (BMI) [Ratio] 30.4 kg/m2 Dr. Nando Wiggins MD Work Phone: [facility] 01-29-2025 05:26-0400 Body weight 96.[address] Nando Wiggins MD Work Phone: [facility] 01-27-2025 07:29-0400 Inhaled oxygen flow rate 3 L/min Dr. Nando Wiggins MD Work Phone: [facility] 01-26-2025 14:04-0400 Body height 177.[address] Nando Wiggins MD Work Phone: [facility] 01-25-2025 17:00-0400 Diastolic blood pressure 73 mm[Hg] Dr. Nando Wiggins MD Work Phone: [facility] 01-25-2025 17:00-0400 Heart rate 90 /min Dr. Nando Wiggins MD Work Phone: [facility] 01-25-2025 17:00-0400 Respiratory rate 16 /min Dr. Nando Wiggins MD Work Phone: [facility] 01-25-2025 17:00-0400 SaO2% (BldA) [Mass fraction] 90 % Dr. Nando Wiggins MD Work Phone: [facility] 01-25-2025 17:00-0400 Systolic blood pressure 125 mm[Hg] Dr. Nando Wiggins MD Work Phone: [facility] 01-25-2025 15:27-0400 Body height 177.[address] Nando Wiggins MD Work Phone: [facility] 01-25-2025 15:27-0400 Body mass index (BMI) [Ratio] 31.3 kg/m2 Dr. Nando Wiggins MD Work Phone: [facility] 01-25-2025 15:27-0400 Body temperature 97.5 [degF] Dr. Nando Wiggins MD Work Phone: [facility] 01-25-2025 15:27-0400 Body weight 99.[address] Nando Wiggins MD Work Phone: [facility] 11-27-2024 07:37-0400 SaO2% (BldA) [Mass fraction] 98 % HUSAM YAN [facility] Comment on above: Order Comment: Specimen Type: ARTERIAL B LOOD SPECIMENOrdering Facility: [facility] Address: [address] [place] [address] Performed By: #### A LLBG ####[facility] LABCLIA [id number] [place] [id number] [place] 11-26-2024 21:30-0400 SaO2% (BldA) [Mass fraction] 97 % HUSAM YAN [facility] Comment on above: Order Comment: Specimen Type: ARTERIAL B LOOD SPECIMENOrdering Facility: [facility] Address: [address] [place] [address] Performed By: #### A LLBG ####[facility] LABIA [id number] [address] [place] 11-26-2024 18:06-0400 SaO2% (BldA) [Mass fraction] 99 % HUSAM YAN [facility] Comment on above: Order Comment: Specimen Type: ARTERIAL B LOOD SPECIMENOrdering Facility: [facility] Address: [address] [place] [address] Performed By: #### A LLBG ####[facility] LABCLIA [id number] [place] [id number] [place] 11-26-2024 13:47-0400 SaO2% (BldA) [Mass fraction] 97 % HUSAM YAN [facility] Comment on above: Order Comment: Specimen Type: ARTERIAL B LOOD SPECIMENOrdering Facility: [facility] Address: [address] [place] [address] Performed By: #### A LLMG ####[facility] LABIA [id number] [address] [place] [address] [place] 11-26-2024 07:36-0400 SaO2% (BldA) [Mass fraction] 99 % HUSAM YAN [facility] Comment on above: Order Comment: Specimen Type: ARTERIAL B LOOD SPECIMENOrdering Facility: [facility] Address: [address] [place], [place] [id number] Performed By: #### A LLBG ####[facility] LABCLIA [id number] [address] [address] [place] 11-26-2024 00:22-0400 SaO2% (BldA) [Mass fraction] 97 % HUSAM YAN [facility] Comment on above: Order Comment: Specimen Type: ARTERIAL B LOOD SPECIMENOrdering Facility: [facility] Address: [address] [place] [address] Performed By: #### A LLBG ####[facility] LABCLIA [id number] [place] [id number] [place] 11-25-2024 20:35-0400 SaO2% (BldA) [Mass fraction] 98 % HUSAM YAN [facility] Comment on above: Order Comment: Specimen Type: ARTERIAL B LOOD SPECIMENOrdering Facility: [facility] Address: [address] [place], [place] [id number] Performed By: #### A LLBG ####[facility] LABIA [id number] [address] [address] [place] 11-25-2024 15:08-0400 SaO2% (BldA) [Mass fraction] 97 % HUSAM YAN [facility] Comment on above: Order Comment: Specimen Type: ARTERIAL B LOOD SPECIMENOrdering Facility: [facility] Address: [address] [place], [place] [id number] Performed By: #### A LLBG ####[facility] LABIA [id number] [address] [address] [place] 11-25-2024 11:07-0400 SaO2% (BldA) [Mass fraction] 99 % HUSAM YAN [facility] Comment on above: Order Comment: Specimen Type: ARTERIAL B LOOD SPECIMENOrdering Facility: [facility] Address: [address] [place], [place] [id number] Performed By: #### A LLBG ####[facility] LABCLIA [id number] [place] [id number] [place] [facility] 11-25-2024 08:20-0400 SaO2% (BldA) [Mass fraction] 97 % HUSAM YAN [facility] Comment on above: Order Comment: Specimen Type: ARTERIAL B LOOD SPECIMENOrdering Facility: [facility] Address: [address] [place] [address] Performed By: #### A LLBG ####[facility] LABIA [id number] [place] [id number] [facility] 11-25-2024 00:43-0400 SaO2% (BldA) [Mass fraction] 92 % HUSAM YAN [facility] Comment on above: Order Comment: Specimen Type: ARTERIAL B LOOD SPECIMENOrdering Facility: [facility] Address: [address] [place] [address] Performed By: #### A LLBG ####[facility] LABIA [id number] [place] [id number] [facility] [place] 11-24-2024 16:34-0400 SaO2% (BldA) [Mass fraction] 94 % HUSAM YAN [facility] Comment on above: Order Comment: Specimen Type: ARTERIAL B LOOD SPECIMENOrdering Facility: [facility] Address: [address] [place] [address] Performed By: #### A LLBG ####[facility] LABIA [id number] [address] [address] [facility] [place] 11-24-2024 08:23-0400 SaO2% (BldA) [Mass fraction] 96 % HUSAM YAN [facility] Comment on above: Order Comment: Specimen Type: ARTERIAL B LOOD SPECIMENOrdering Facility: [facility] Address: [address] [place], [place] [id number] Performed By: #### A LLBG ####[facility] LABCLIA [id number] [address] [address] [facility] 11-24-2024 06:44-0400 SaO2% (BldA) [Mass fraction] 97 % HUSAM YAN [facility] Comment on above: Order Comment: Specimen Type: ARTERIAL B LOOD SPECIMENOrdering Facility: [facility] Address: [address] [place], [place] [id number] Performed By: #### A LLBG ####[facility] LABCLIA [id number] [address] [address] [place] 11-24-2024 00:29-0400 SaO2% (BldA) [Mass fraction] 97 % HUSAM YAN [facility] Comment on above: Order Comment: Specimen Type: ARTERIAL B LOOD SPECIMENOrdering Facility: [facility] Address: [address] [place], [place] [id number] Performed By: #### A LLBG ####[facility] LABCLIA [id number] [address] [address] [place] 11-23-2024 19:51-0400 SaO2% (BldA) [Mass fraction] 96 % Dr. Nando Wiggins MD Work Phone: [facility] Comment on above: Order Comment: Specimen Type: ARTERIAL B LOOD SPECIMENOrdering Facility: [facility] Address: [address] [place], [place] [id number] Performed By: #### A LLBG ####[facility] LABCLIA [id number] [address] [address] [place] 11-23-2024 14:00-0400 Diastolic blood pressure 55 mm[Hg] Dr. Nando Wiggins MD Work Phone: [facility] 11-23-2024 14:00-0400 Heart rate 30 /min Dr. Nando Wiggins MD Work Phone: [facility] 11-23-2024 14:00-0400 Respiratory rate 18 /min Dr. Nando Wiggins MD Work Phone: [facility] 11-23-2024 14:00-0400 Systolic blood pressure 120 mm[Hg] Dr. Nando Wiggins MD Work Phone: [facility] 11-22-2024 21:07-0400 Body temperature 97.8 [degF] Dr. Nando Wiggins MD Work Phone: [facility] 11-22-2024 08:46-0400 Body height 170.[address] Nando Wiggins MD Work Phone: [facility] 11-22-2024 08:46-0400 Body mass index (BMI) [Ratio] 34.7 kg/m2 Dr. Nando Wiggins MD Work Phone: [facility] 11-22-2024 08:46-0400 Body weight 100.[address] Nando Wiggins MD Work Phone: [facility] 11-09-2024 03:00-0400 Diastolic blood pressure 52 mm[Hg] Dr. Nando Wiggins MD Work Phone: [facility] 11-09-2024 03:00-0400 Heart rate 52 /min Dr. Nando Wiggins MD Work Phone: [facility] 11-09-2024 03:00-0400 SaO2% (BldA) [Mass fraction] 96 % Dr. Nando Wiggins MD Work Phone: [facility] 11-09-2024 03:00-0400 Systolic blood pressure 126 mm[Hg] Dr. Nando Wiggins MD Work Phone: [facility] 11-08-2024 22:11-0400 Body temperature 97.6 [degF] Dr. Nando Wiggins MD Work Phone: [facility] 11-08-2024 22:11-0400 Respiratory rate 18 /min Dr. Nando Wiggins MD Work Phone: [facility] 11-08-2024 19:36-0400 Body height 170.[address] Nando Wiggins MD Work Phone: [facility] 11-08-2024 19:36-0400 Body mass index (BMI) [Ratio] 32.5 kg/m2 Dr. Nando Wiggins MD Work Phone: [facility] 11-08-2024 19:36-0400 Body weight 94.[address] Nando Wiggins MD Work Phone: [facility] 10-29-2024 06:52-0400 Body mass index (BMI) [Ratio] 32.5 kg/m2 Dr. Nando Wiggins MD Work Phone: [facility] 10-29-2024 06:52-0400 Body weight 94.[address] Nando Wiggins MD Work Phone: [facility] 10-29-2024 06:52-0400 Diastolic blood pressure 65 mm[Hg] Dr. Nando Wiggins MD Work Phone: [facility] 10-29-2024 06:52-0400 Heart rate 54 /min Dr. Nando Wiggins MD Work Phone: [facility] 10-29-2024 06:52-0400 Respiratory rate 18 /min Dr. Nando Wiggins MD Work Phone: [facility] 10-29-2024 06:52-0400 SaO2% (BldA) [Mass fraction] 92 % Dr. Nando Wiggins MD Work Phone: [facility] 10-29-2024 06:52-0400 Systolic blood pressure 129 mm[Hg] Dr. Nando Wiggins MD Work Phone: [facility] 10-17-2024 10:25-0400 Body temperature 98.6 [degF] Dr. Jean Yan MD Work Phone: [facility] 10-17-2024 10:25-0400 Diastolic blood pressure 72 mm[Hg] Dr. Jean Yan MD Work Phone: [facility] 10-17-2024 10:25-0400 Heart rate 56 /min Dr. Jean Yan MD Work Phone: [facility] 10-17-2024 10:25-0400 Respiratory rate 16 /min Dr. Jean Yan MD Work Phone: [facility] 10-17-2024 10:25-0400 SaO2% (BldA) [Mass fraction] 93 % Dr. Jean Yan MD Work Phone: [facility] 10-17-2024 10:25-0400 Systolic blood pressure 135 mm[Hg] Dr. Jean Yan MD Work Phone: [facility] 10-03-2024 09:08-0400 Body temperature 98 [degF] Dr. Jean Yan MD Work Phone: [facility] 10-03-2024 09:08-0400 Diastolic blood pressure 54 mm[Hg] Dr. Jean Yan MD Work Phone: [facility] 10-03-2024 09:08-0400 Heart rate 48 /min Dr. Jean Yan MD Work Phone: [facility] 10-03-2024 09:08-0400 Respiratory rate 14 /min Dr. Jean Yan MD Work Phone: [facility] 10-03-2024 09:08-0400 SaO2% (BldA) [Mass fraction] 94 % Dr. Jean Yan MD Work Phone: 5(298)143-123365 [place] [address] 10-03-2024 09:08-0400 Systolic blood pressure 132 mm[Hg] Dr. Jean Yan MD Work Phone: 2(616)623-799765 [place] [address] 09-24-2024 10:09-0400 Body mass index (BMI) [Ratio] 31.9 kg/m2 Dr. Jean Yan MD Work Phone: 6(460)417-846765 [place] [address] 09-24-2024 10:09-0400 Body temperature 96 [degF] Dr. Jean Yan MD Work Phone: 7(196)640-990465 [place] [address] 09-24-2024 10:09-0400 Diastolic blood pressure 40 mm[Hg] Dr. Jean Yan MD Work Phone: 5(949)567-895265 [place] [address] 09-24-2024 10:09-0400 Heart rate 44 /min Dr. Jean Yan MD Work Phone: 3(578)361-389365 [place] [address] 09-24-2024 10:09-0400 Respiratory rate 16 /min Dr. Jean Yan MD Work Phone: 7(160)329-831865 [place] [address] 09-24-2024 10:09-0400 Systolic blood pressure 121 mm[Hg] Dr. Jean Yan MD Work Phone: 2(673)570-710165 [place] [address] 09-20-2024 00:41-0400 Body weight 92.[address] Jean Yan MD Work Phone: 7(317)029-186265 [place] [address] 09-04-2024 12:16-0400 Body mass index (BMI) [Ratio] 29.9 kg/m2 Dr. Jean Yan MD Work Phone: 0(700)294-051265 [place] [address] 09-04-2024 12:16-0400 Body temperature 97.2 [degF] Dr. Jean Yan MD Work Phone: 6(357)080-406765 [place] [address] 09-04-2024 12:16-0400 Body weight 86.[address] Jean Yan MD Work Phone: 0(943)698-335365 [place] [address] 09-04-2024 12:16-0400 Diastolic blood pressure 59 mm[Hg] Dr. Jean Yan MD Work Phone: 3(486)581-817065 [place] [address] 09-04-2024 12:16-0400 Heart rate 53 /min Dr. Jean Yan MD Work Phone: 3(491)954-616865 [place] [address] 09-04-2024 12:16-0400 Respiratory rate 14 /min Dr. Jean Yan MD Work Phone: 5(438)505-774865 [place] [address] 09-04-2024 12:16-0400 SaO2% (BldA) [Mass fraction] 96 % Dr. Jean Yan MD Work Phone: 0(344)892-189165 [place] [address] 09-04-2024 12:16-0400 Systolic blood pressure 108 mm[Hg] Dr. Jean Yan MD Work Phone: 1(331)346-032965 [place] [address] 09-03-2024 14:19-0400 Body height 170.[address] Jean Yan MD Work Phone: 5(113)418-359465 [place] [address] 08-30-2024 21:37-0400 Inhaled oxygen flow rate 2 L/min Dr. Jean Yan MD Work Phone: 6(669)927-899065 [place] [address] 08-27-2024 08:54-0400 Body mass index (BMI) [Ratio] 31.9 kg/m2 Dr. Jean Yan MD Work Phone: 1(990)365-098165 [place] [address] 08-27-2024 08:54-0400 Diastolic blood pressure 61 mm[Hg] Dr. Jean Yan MD Work Phone: 2(843)652-425465 [place] [address] 08-27-2024 08:54-0400 Heart rate 66 /min Dr. Jean Yan MD Work Phone: 5(964)986-005065 [place] [address] 08-27-2024 08:54-0400 Respiratory rate 16 /min Dr. Jean Yan MD Work Phone: 3(463)379-628165 [place] [address] 08-27-2024 08:54-0400 Systolic blood pressure 100 mm[Hg] Dr. Jean Yan MD Work Phone: 8(118)791-173465 [place] [address] 08-21-2024 00:56-0400 Body temperature 97.4 [degF] Dr. Jean Yan MD Work Phone: 7(312)486-811865 [place] [address] 08-21-2024 00:56-0400 Body weight 92.[address] Jean Yan MD Work Phone: 8(469)823-453465 [place] [address] 08-20-2024 10:36-0400 Body mass index (BMI) [Ratio] 31.9 kg/m2 Dr. Jean Yan MD Work Phone: 8(790)234-867965 [place] [address] 08-20-2024 10:36-0400 Body temperature 97.4 [degF] Dr. Jean Yan MD Work Phone: 9(435)098-971365 [place] [address] 08-20-2024 10:36-0400 Diastolic blood pressure 39 mm[Hg] Dr. Jean Yan MD Work Phone: 5(393)281-363965 [place] [address] 08-20-2024 10:36-0400 Heart rate 42 /min Dr. Jean Yan MD Work Phone: 3(644)644-909565 [place] [address] 08-20-2024 10:36-0400 Respiratory rate 16 /min Dr. Jean Yan MD Work Phone: 2(402)475-027165 [place] [address] 08-20-2024 10:36-0400 Systolic blood pressure 123 mm[Hg] Dr. Jean Yan MD Work Phone: 6(790)333-400265 [place] [address] 08-01-2024 19:00-0400 Diastolic blood pressure 46 mm[Hg] Dr. Jean Yan MD Work Phone: 1(221)027-336365 [place] [address] 08-01-2024 19:00-0400 Heart rate 47 /min Dr. Jean Yan MD Work Phone: 0(179)403-448065 [place] [address] 08-01-2024 19:00-0400 Respiratory rate 18 /min Dr. Jean Yan MD Work Phone: 0(215)027-741165 [place] [address] 08-01-2024 19:00-0400 SaO2% (BldA) [Mass fraction] 98 % Dr. Jean Yan MD Work Phone: 8(377)549-053065 [place] [address] 08-01-2024 19:00-0400 Systolic blood pressure 113 mm[Hg] Dr. Jean Yan MD Work Phone: 4(967)865-155365 [place] [address] 08-01-2024 15:00-0400 Body temperature 98.1 [degF] Dr. Jean Yan MD Work Phone: 1(261)271-362065 [place] [address] 07-21-2024 02:32-0500 Body weight 92.[address] Jean Yan MD Work Phone: 8(614)553-980065 [place] [address] 07-20-2024 20:26-0500 Body temperature 98.1 [degF] Dr. Jean Yan MD Work Phone: 2(479)987-433265 [place] [address] 07-20-2024 20:26-0500 Diastolic blood pressure 47 mm[Hg] Dr. Jean Yan MD Work Phone: 7(749)282-811665 [place] [address] 07-20-2024 20:26-0500 Heart rate 56 /min Dr. Jean Yan MD Work Phone: 6(600)521-031465 [place] [address] 07-20-2024 20:26-0500 Respiratory rate 18 /min Dr. Jean Yan MD Work Phone: 0(545)337-886465 [place] [address] 07-20-2024 20:26-0500 SaO2% (BldA) [Mass fraction] 97 % Dr. Jean Yan MD Work Phone: 9(996)691-341765 [place] [address] 07-20-2024 20:26-0500 Systolic blood pressure 143 mm[Hg] Dr. Jean Yan MD Work Phone: 2(218)528-788965 [place] [address] 07-20-2024 05:46-0500 Body mass index (BMI) [Ratio] 31.8 kg/m2 Dr. Jean Yan MD Work Phone: 1(836)757-624365 [place] [address] 07-20-2024 05:46-0500 Body weight 92.[address] Jean Yan MD Work Phone: 0(634)505-442860 [place] [address] 07-16-2024 15:18-0500 Inhaled oxygen flow rate 2 L/min Dr. Jean Yan MD Work Phone: 1(500)604-869165 [place] [address] 07-11-2024 10:27-0500 Body mass index (BMI) [Ratio] 31.9 kg/m2 Dr. Jean Yan MD Work Phone: 2(982)664-883465 [place] [address] 07-11-2024 10:27-0500 Body temperature 96.7 [degF] Dr. Jean Yan MD Work Phone: 2(194)005-009065 [place] [address] 07-11-2024 10:27-0500 Diastolic blood pressure 45 mm[Hg] Dr. Jean Yan MD Work Phone: 0(325)614-157465 [place] [address] 07-11-2024 10:27-0500 Heart rate 60 /min Dr. Jean Yan MD Work Phone: 1(574)683-615465 [place] [address] 07-11-2024 10:27-0500 Respiratory rate 18 /min Dr. Jean Yan MD Work Phone: 7(810)331-505365 [place] [address] 07-11-2024 10:27-0500 Systolic blood pressure 119 mm[Hg] Dr. Jean Yan MD Work Phone: 4(012)313-917665 [place] [address] 07-07-2024 22:04-0500 Body temperature 97.8 [degF] Dr. Jean Yan MD Work Phone: 9(195)834-094865 [place] [address] 07-07-2024 22:04-0500 Diastolic blood pressure 61 mm[Hg] Dr. Jean Yan MD Work Phone: 7(231)266-705165 [place] [address] 07-07-2024 22:04-0500 Heart rate 74 /min Dr. Jean Yan MD Work Phone: 1(856)156-924465 [place] [address] 07-07-2024 22:04-0500 Respiratory rate 19 /min Dr. Jean Yan MD Work Phone: 6(563)380-186365 [place] [address] 07-07-2024 22:04-0500 SaO2% (BldA) [Mass fraction] 94 % Dr. Jean Yan MD Work Phone: 6(026)657-685565 [place] [address] 07-07-2024 22:04-0500 Systolic blood pressure 119 mm[Hg] Dr. Jean Yan MD Work Phone: 0(334)429-486565 [place] [address] 07-07-2024 17:35-0500 Body mass index (BMI) [Ratio] 33.7 kg/m2 Dr. Jean Yan MD Work Phone: 7(922)359-813965 [place] [address] 07-07-2024 17:35-0500 Body weight 97.[address] Jean Yan MD Work Phone: 6(380)438-062865 [place] [address] 07-03-2024 17:24-0500 Body temperature 97.8 [degF] Dr. Jean Yan MD Work Phone: 1(386)939-963765 [place] [address] 07-03-2024 17:24-0500 Diastolic blood pressure 43 mm[Hg] Dr. Jean Yan MD Work Phone: 7(218)456-673265 [place] [address] 07-03-2024 17:24-0500 Heart rate 59 /min Dr. Jean Yan MD Work Phone: 6(445)907-633465 [place] [address] 07-03-2024 17:24-0500 Respiratory rate 16 /min Dr. Jean Yan MD Work Phone: 3(996)453-788565 [place] [address] 07-03-2024 17:24-0500 SaO2% (BldA) [Mass fraction] 98 % Dr. Jean Yan MD Work Phone: 9(980)092-271065 [place] [address] 07-03-2024 17:24-0500 Systolic blood pressure 109 mm[Hg] Dr. Jean Yan MD Work Phone: 0(465)155-199465 [place] [address] 07-03-2024 12:45-0500 Body mass index (BMI) [Ratio] 37.7 kg/m2 Dr. Jean Yan MD Work Phone: 6(442)066-212865 [place] [address] 07-03-2024 12:45-0500 Body weight 109.[address] Jean aYn MD Work Phone: 0(882)697-553965 [place] [address] 07-02-2024 20:15-0500 Body temperature 98 [degF] Dr. Jean Yan MD Work Phone: 8(654)086-447865 [place] [address] 07-02-2024 20:15-0500 Diastolic blood pressure 47 mm[Hg] Dr. Jean Yan MD Work Phone: 2(065)989-753865 [place] [address] 07-02-2024 20:15-0500 Heart rate 56 /min Dr. Jean Yan MD Work Phone: 1(139)666-310165 [place] [address] 07-02-2024 20:15-0500 Respiratory rate 18 /min Dr. Jean Yan MD Work Phone: 1(117)173-177365 [place] [address] 07-02-2024 20:15-0500 SaO2% (BldA) [Mass fraction] 97 % Dr. Jean Yan MD Work Phone: 7(524)332-339865 [place] [address] 07-02-2024 20:15-0500 Systolic blood pressure 115 mm[Hg] Dr. Jean Yan MD Work Phone: 0(858)301-212865 [place] [address] 07-02-2024 16:22-0500 Body mass index (BMI) [Ratio] 32.5 kg/m2 Dr. Jean Yan MD Work Phone: 4(007)015-736865 [place] [address] 07-02-2024 16:22-0500 Body weight 94.[address] Jean Yan MD Work Phone: 1(679)046-689665 [place] [address] 06-23-2024 02:27-0500 Body weight 92.[address] Jean Yan MD Work Phone: 8(236)310-070865 [place] [address] 06-20-2024 08:47-0500 Body temperature 97.5 [degF] Dr. Jean Yna MD Work Phone: 7(666)132-693965 [place] [address] 06-20-2024 08:47-0500 Body weight 96.[address] Jean Yan MD Work Phone: 6(371)854-611065 [place] [address] 06-20-2024 08:47-0500 Diastolic blood pressure 55 mm[Hg] Dr. Jean Yan MD Work Phone: 6(598)452-570965 [place] [address] 06-20-2024 08:47-0500 Heart rate 57 /min Dr. Jean Yan MD Work Phone: 7(665)849-949865 [place] [address] 06-20-2024 08:47-0500 Respiratory rate 14 /min Dr. Jean Yan MD Work Phone: 2(118)279-018865 [place] [address] 06-20-2024 08:47-0500 Systolic blood pressure 135 mm[Hg] Dr. Jean Yan MD Work Phone: 0(984)222-390665 [place] [address] 06-19-2024 11:43-0500 Body mass index (BMI) [Ratio] 31.9 kg/m2 Dr. Jean Yan MD Work Phone: 6(170)714-836865 [place] [address] 06-19-2024 11:43-0500 Respiratory rate 18 /min Dr. Jean Yan MD Work Phone: 2(743)040-557365 [place] [address] 06-12-2024 11:21-0500 Body temperature 96.7 [degF] Dr. Jean Yan MD Work Phone: 1(363)349-881165 [place] [address] 06-06-2024 10:00-0500 Body temperature 97 [degF] Dr. Jean Yan MD Work Phone: 9(387)762-475665 [place] [address] 06-06-2024 10:00-0500 Diastolic blood pressure 67 mm[Hg] Dr. Jean Yan MD Work Phone: 7(739)310-328565 [place] [address] 06-06-2024 10:00-0500 Heart rate 84 /min Dr. Jean Yan MD Work Phone: 8(121)467-518165 [place] [address] 06-06-2024 10:00-0500 Respiratory rate 16 /min Dr. Jean Yan MD Work Phone: 8(693)668-711365 [place] [address] 06-06-2024 10:00-0500 SaO2% (BldA) [Mass fraction] 95 % Dr. Jean Yan MD Work Phone: [facility] 06-06-2024 10:00-0500 Systolic blood pressure 101 mm[Hg] Dr. Jean Yan MD Work Phone: 5(194)054-839360 [place] [address] 06-06-2024 06:39-0500 Body mass index (BMI) [Ratio] 33.6 kg/m2 Dr. Jean Yan MD Work Phone: 4(104)047-225765 [place] [address] 06-06-2024 06:39-0500 Body weight 97.[address] Jean Yan MD Work Phone: 5(882)209-345165 [place] [address] 05-29-2024 10:49-0500 Diastolic blood pressure 31 mm[Hg] Dr. Jean Yan MD Work Phone: 2(871)683-381065 [place] [address] 05-29-2024 10:49-0500 Heart rate 58 /min Dr. Jean Yan MD Work Phone: 8(680)580-324465 [place] [address] 05-29-2024 10:49-0500 Systolic blood pressure 111 mm[Hg] Dr. Jean Yan MD Work Phone: 6(225)[phone] [place] [address] 05-23-2024 00:51-0500 Body weight 92.[address] Jean Yan MD Work Phone: [facility] 04-14-2024 10:11-0500 Body temperature 99.1 [degF] Usman Moomaw [employer] Work Phone: [facility] 04-14-2024 10:11-0500 Diastolic blood pressure 60 mm[Hg] Usman Moomaw [employer] Work Phone: [facility] 04-14-2024 10:11-0500 Heart rate 76 /min Usman Moomaw [employer] Work Phone: [facility] 04-14-2024 10:11-0500 Respiratory rate 16 /min Usman Moomaw [employer] Work Phone: [facility] 04-14-2024 10:11-0500 SaO2% (BldA) [Mass fraction] 94 % Usman Moomaw [employer] Work Phone: [facility] 04-14-2024 10:11-0500 Systolic blood pressure 124 mm[Hg] Usman Moomaw GUITAR MAKER.CAR USHER Work Phone: [facility] 03-28-2024 12:54-0500 Body mass index (BMI) [Ratio] 34.25 kg/m2 Lauren Podlogar GUITAR MAKER[employer] USHER Work Phone: [facility] 03-28-2024 12:54-0500 Body weight 99.2 kg Lauren Podlogar GUITAR MAKER[employer] USHER Work Phone: [facility] 03-28-2024 12:54-0500 Diastolic blood pressure 48 mm[Hg] Lauren Podlogar GUITAR MAKER[employer] USHER Work Phone: [facility] 03-28-2024 12:54-0500 Heart rate 47 /min Lauren Podlogar GUITAR MAKER[employer] USHER Work Phone: [facility] 03-28-2024 12:54-0500 Respiratory rate 18 /min Lauren Podlogar GUITAR MAKER[employer] USHER Work Phone: [facility] 03-28-2024 12:54-0500 SaO2% (BldA) [Mass fraction] 98 % Lauren Podlogar GUITAR MAKER[employer] USHER Work Phone: [facility] 03-28-2024 12:54-0500 Systolic blood pressure 118 mm[Hg] Lauren Podlogar GUITAR MAKER[employer] USHER Work Phone: [facility] 01-06-2024 09:36-0400 Body mass index (BMI) [Ratio] 33.01 kg/m2 Lauren Podlogar GUITAR MAKER[employer] USHER Work Phone: [facility] 01-06-2024 09:36-0400 Body weight 95.6 kg Lauren Podlogar GUITAR MAKER[employer] USHER Work Phone: [facility] 01-06-2024 09:36-0400 Diastolic blood pressure 58 mm[Hg] Lauren Podlogar GUITAR MAKER[employer] USHER Work Phone: [facility] 01-06-2024 09:36-0400 Heart rate 58 /min Lauren Podlogar GUITAR MAKER[employer] USHER Work Phone: [facility] 01-06-2024 09:36-0400 Respiratory rate 16 /min Lauren Podlogar GUITAR MAKER[employer] USHER Work Phone: [facility] 01-06-2024 09:36-0400 SaO2% (BldA) [Mass fraction] 97 % Lauren Podlogar GUITAR MAKER[employer] USHER Work Phone: [facility] 01-06-2024 09:36-0400 Systolic blood pressure 128 mm[Hg] Lauren Podlogar GUITAR MAKER[employer] USHER Work Phone: [facility] 09-08-2023 14:30-0400 Body temperature 96.62 [degF] JEAN PIERRE ARREAGA MD [address] [place] [id number] 09-08-2023 14:30-0400 Diastolic Blood Pressure Non-Invasive 50 mm[Hg] JEAN PIERRE ARREAGA MD [address] [place] [id number] 09-08-2023 14:30-0400 Heart rate 53 /min JEAN PIERRE ARREAGA MD [address] [place] [id number] 09-08-2023 14:30-0400 Respiratory rate 16 /min JEAN PIERRE ARREAGA MD [address] [place] [id number] 09-08-2023 14:30-0400 Systolic Blood Pressure Non-Invasive 140 mm[Hg] JEAN PIERRE ARREAGA MD [address] [place] [id number] 09-08-2023 14:13-0400 Body temperature 96.98 [degF] JEAN PIERRE ARREAGA MD [address] [place] [id number] 09-08-2023 14:13-0400 Diastolic Blood Pressure Non-Invasive 49 mm[Hg] JEAN PIERRE ARREAGA MD [address] [place] [address] 09-08-2023 14:13-0400 Heart rate 51 /min JEAN PIERRE ARREAGA MD [facility] 09-08-2023 14:13-0400 Mean blood pressure 74 mm[Hg] JEAN PIERRE ARREAGA MD [facility] 09-08-2023 14:13-0400 Respiratory rate 16 /min JEAN PIERRE ARREAGA MD [address] [place] [id number] 09-08-2023 14:13-0400 Systolic Blood Pressure Non-Invasive 134 mm[Hg] JEAN PIERRE ARREAGA MD [address] [place] [address] 09-08-2023 13:58-0400 Diastolic Blood Pressure Non-Invasive 49 mm[Hg] JEAN PIERRE ARREAGA MD [address] [place] [address] 09-08-2023 13:58-0400 Heart rate 45 /min JEAN PIERRE ARREAGA MD [address] [place] [id number] 09-08-2023 13:58-0400 Mean blood pressure 74 mm[Hg] JEAN PIERRE ARREAGA MD [address] [place] [address] 09-08-2023 13:58-0400 Respiratory rate 16 /min JEAN PIERRE ARREAGA MD [address] [place] [id number] 09-08-2023 13:58-0400 Systolic Blood Pressure Non-Invasive 130 mm[Hg] JEAN PIERRE ARREAGA MD [facility] 09-08-2023 13:43-0400 Body temperature 96.98 [degF] JEAN PIERRE ARREAGA MD [address] [place] [address] 09-08-2023 13:43-0400 Heart rate 44 /min JEAN PIERRE ARREAGA MD [address] [place] [id number] 09-08-2023 13:43-0400 Mean blood pressure 73 mm[Hg] JEAN PIERRE ARREAGA MD [facility] 09-08-2023 13:35-0400 Body temperature 95.05 [degF] JEAN PIERRE ARREAGA MD [facility] 09-08-2023 13:35-0400 Respiratory Rate - Anes 23 br/min JEAN PIERRE ARREAGA MD [facility] 09-08-2023 13:30-0400 Body temperature 94.95 [degF] JEAN PIERRE ARREAGA MD [facility] 09-08-2023 13:30-0400 Respiratory Rate - Anes 21 br/min JEAN PIERRE ARREAGA MD [facility] 09-08-2023 13:25-0400 Body temperature 94.75 [degF] JEAN PIERRE ARREAGA MD [facility] 09-08-2023 13:25-0400 Respiratory Rate - Anes 11 br/min JEAN PIERRE ARREAGA MD [facility] 09-08-2023 11:18-0400 Body height 170.2 cm JEAN PIERRE ARREAGA MD [facility] 09-08-2023 11:18-0400 Body weight 98.7 kg JEAN PIERRE ARREAGA MD [facility] 09-08-2023 10:55-0400 Heart rate 56 /min JEAN PIERRE ARREAGA MD [facility] 12-06-2022 09:18-0400 Body weight 97.98 kg Lauren Podlogar GUITAR MAKER[employer] USHER Work Phone: [facility] 12-06-2022 09:18-0400 Diastolic blood pressure 60 mm[Hg] Lauren Podlogar GUITAR MAKER[employer] USHER Work Phone: [facility] 12-06-2022 09:18-0400 Heart rate 50 /min Lauren Podlogar GUITAR MAKER[employer] USHER Work Phone: [facility] 12-06-2022 09:18-0400 Respiratory rate 16 /min Lauren Podlogar GUITAR MAKER[employer] USHER Work Phone: [facility] 12-06-2022 09:18-0400 SaO2% (BldA) [Mass fraction] 96 % Lauren Podlogar GUITAR MAKER[employer] USHER Work Phone: [facility] 12-06-2022 09:18-0400 Systolic blood pressure 128 mm[Hg] Lauren Podlogar GUITAR MAKER[employer] USHER Work Phone: [facility] 09-06-2022 09:54-0400 Body weight 99.52 kg Lauren Podlogar GUITAR MAKER[employer] USHER Work Phone: [facility] 09-06-2022 09:54-0400 Diastolic blood pressure 62 mm[Hg] Lauren Podlogar GUITAR MAKER[employer] USHER Work Phone: [facility] 09-06-2022 09:54-0400 Heart rate 58 /min Lauren Podlogar GUITAR MAKER.CAR USHER Work Phone: [facility] 09-06-2022 09:54-0400 Respiratory rate 18 /min Lauren Podlogar GUITAR MAKER[employer] USHER Work Phone: [facility] 09-06-2022 09:54-0400 SaO2% (BldA) [Mass fraction] 93 % Lauren Podlogar GUITAR MAKER[employer] USHER Work Phone: [facility] 09-06-2022 09:54-0400 Systolic blood pressure 138 mm[Hg] Lauren Podlogar GUITAR MAKER[employer] USHER Work Phone: [facility] 06-07-2022 11:12-0500 Diastolic blood pressure 62 mm[Hg] Husam Yan MD Work Phone: [facility] 06-07-2022 11:12-0500 Systolic blood pressure 144 mm[Hg] Husam Yan MD Work Phone: [facility] 06-07-2022 10:29-0500 Body weight 98.7 kg Husam Yan MD Work Phone: [facility] 06-07-2022 10:29-0500 Heart rate 58 /min Husam Yan MD Work Phone: [facility] 06-07-2022 10:29-0500 Respiratory rate 16 /min Husam Yan MD Work Phone: [facility] 06-07-2022 10:29-0500 SaO2% (BldA) [Mass fraction] 96 % Husam Yan MD Work Phone: [facility] 03-05-2022 09:46-0400 Body weight 98.16 kg Husam Yan MD Work Phone: [facility] 03-05-2022 09:46-0400 Diastolic blood pressure 60 mm[Hg] Husam Yan MD Work Phone: [facility] 03-05-2022 09:46-0400 Heart rate 58 /min Husam Yan MD Work Phone: [facility] 03-05-2022 09:46-0400 Respiratory rate 16 /min Husam Yan MD Work Phone: [facility] 03-05-2022 09:46-0400 Systolic blood pressure 136 mm[Hg] Husam Yan MD Work Phone: [facility] 11-06-2021 09:22-0400 Body height 172.[address] Jean Yan Work Phone: [facility] Work Phone: 11-06-2021 09:22-0400 Body weight 97.[address] Jean Yan Work Phone: [facility] Work Phone: 11-05-2021 09:04-0400 Body mass index (BMI) [Ratio] 32.5 kg/m2 Dr. Jean Yan Work Phone: [facility] Work Phone: 10-21-2021 14:22-0400 Body mass index (BMI) [Ratio] 32.5 kg/m2 Dr. Jean Yan Work Phone: [facility] Work Phone: 10-21-2021 14:22-0400 Body temperature 98 [degF] Dr. Jean Yan Work Phone: [facility] Work Phone: 10-21-2021 14:22-0400 Body weight 97.[address] Jean Yan Work Phone: [facility] Work Phone: 10-21-2021 14:22-0400 Diastolic blood pressure 75 mm[Hg] Dr. Jean Yan Work Phone: [facility] Work Phone: 10-21-2021 14:22-0400 Heart rate 43 /min Dr. Jean Yan Work Phone: [facility] Work Phone: 10-21-2021 14:22-0400 Respiratory rate 16 /min Dr. Jean Yan Work Phone: [facility] Work Phone: 10-21-2021 14:22-0400 SaO2% (BldA) [Mass fraction] 93 % Dr. Jean Yan Work Phone: [facility] Work Phone: 10-21-2021 14:22-0400 Systolic blood pressure 166 mm[Hg] Dr. Jean Yan Work Phone: [facility] Work Phone: 10-27-2016 15:34-0400 Heart rate [...] Start: 03-29-2025 End: 03-29-2025 ambulatory Efewongbe Oleghe Facility:[facility] Start: 03-12-2025 ambulatory Efewongbe Oleghe Facili ty:[facility] Start: 03-07-2025 ambulatory Efewongbe Oleghe Facili ty:[facility] Start: 03-07-2025 Nando Wiggins MD [facility] Start: 02-28-2025 ambulatory Efewongbe Oleghe Facili ty:[facility] Start: 02-28-2025 Nando Wiggins MD [facility] Start: 02-25-2025 End: 02-25-[address] Nando Wiggins MD Work Phone: -[place] [facility] Start: 02-25-2025 End: 02-25-2025 Dr. Laron Bacon MD -[facility] Work Phone: Start: 02-15-2025 End: 02-15-2025 Dr. Hakan Gunter MD -[facility] Work Phone: Start: 02-15-2025 End: 02-15-[address] Nando Wiggins MD Work Phone: -[facility] Start: 02-14-2025 ambulatory Efewongbe Oleghe Facili ty:[facility] Start: 02-14-2025 [facility] Start: 02-12-2025 ambulatory Efewongbe Oleghe Facili ty:[facility] Start: 02-12-2025 [facility] Start: 02-07-2025 ambulatory Efewongbe Oleghe Facili ty:[facility] Start: 02-07-2025 [facility] Start: 02-01-2025 ambulatory Efewongbe Oleghe O[facility] Fa cility:[facility] Start: 02-01-2025 [facility] Start: 01-30-2025 End: 01-30-2025 ambulatory Efewongbe Oleghe Facility:[facility] Start: 01-30-2025 End: 01-30-2025 Meredith Guevara [facility] Work Phone: Start: 01-29-2025 Dr. Jaswant Montgomery MD -[facility] Work Phone: Start: 01-28-2025 Dr. Jaswant Montgomery MD -[facility] Work Phone: Start: 01-27-2025 Dr. Hakan padron MD -[facility] Start: 01-27-2025 Dr. Nazanin rivera MD -[facility] Work Phone: Start: [facility] Start: 01-26-2025 Dr. Kimberly connor MD -[facility] Work Phone: Start: 01-25-2025 ambulatory Efewongbe Oleghe Facili ty:[facility] Start: 01-25-2025 End: 01-29-2025 Evaluation and management of inpatient Dr. Nando Wiggins MD Work Phone: -[facility] Start: 01-25-2025 End: 01-29-2025 Dr. Jayla Osuna MD -[facility] Work Phone: Start: 01-25-2025 ambulatory Efewongbe Oleghe Facili ty:[facility] Start: 01-25-2025 Dr. Hakan padron MD -[facility] Start: 01-23-2025 ambulatory Efewongbe Oleghe Facili ty:[facility] Start: 01-23-2025 Nando Wiggins MD [facility] Start: 12-26-2024 End: 12-26-[address] aNndo Wiggins MD Work Phone: -[facility] Start: 12-26-2024 End: 12-26-2024 Grecia Duran [facility] Work Phone: Start: 12-24-2024 Nando Wiggins MD [facility] Start: 12-24-2024 End: 12-24-2024 ambulatory Efewongbe Oleghe Facility:[facility] Start: 12-21-2024 End: 12-21-[address] Nando Wiggins MD Work Phone: [facility] Start: 12-21-2024 End: 12-21-2024 [facility] Start: 12-20-2024 End: 12-20-[address] Nando Wiggins MD Work Phone: [facility] Start: 12-20-2024 End: 12-20-2024 Meredith STEWART [facility] Work Phone: Start: 12-19-2024 ambulatory Efewongbe Oleghe Facili ty:[facility] Start: 12-19-2024 Nando Wiggins MD [facility] Start: 12-12-2024 ambulatory Efewongbe Oleghe Facili ty:[facility] Start: 12-12-2024 Nando Wiggins MD -[facility] Start: 12-11-2024 End: 12-11-2024 Telephone encounter William Chilel MD Work Phone: Cardiology Comment on above: Courtesy call (Devi e survey) Start: 11-30-2024 End: 11-30-[address] Nando Wiggins MD Work Phone: -[facility] Start: 11-30-2024 End: 11-30-2024 Meredith Guevara NP-C -[facility] Work Phone: Start: 11-23-2024 End: 11-28-2024 Evaluation and management of inpatient HUSAM YAN Facility:[facility] Start: 11-22-2024 End: 11-23-2024 Dr. Nando Wiggins MD Work Phone: -Emergency Department Work Phone: Start: 11-22-2024 End: 11-23-2024 Emergency department patient visit Dr. Nando Wiggins MD Work Phone: -Emergency Department Start: 11-12-2024 ambulatory Nando Raini ty:[facility] Start: 11-12-2024 Nando Wiggins MD -[facility] Start: 11-08-2024 End: 11-09-2024 Dr. Nando Wiggins MD Work Phone: -Emergency Department Work Phone: Start: 11-08-2024 End: 11-09-2024 Emergency department patient visit Dr. Nando Wiggins MD Work Phone: [facility] Work Phone: Start: 11-05-2024 End: 11-05-[address] Nando Wiggins MD Work Phone: -[facility] Start: 11-05-2024 End: 11-05-2024 Nando Wiggins MD [facility] Start: 11-05-2024 End: 11-05-2024 ambulatory Nando Wiggins Facility:[facility] Start: 11-02-2024 End: 11-02-[address] Nando Wiggins MD Work Phone: [facility] Start: 11-02-2024 End: 11-02-2024 Meredith Guevara [employer]-C -[facility] Work Phone: Start: 10-29-2024 End: 10-29-2024 ambulatory Nando Wiggins Facility:[facility] Start: 10-29-2024 End: 10-29-2024 Pooja Ruano [employer]-C -[facility] Work Phone: Start: 10-22-2024 ambulatory Nando SHERWOOD Fa cility:[facility] Start: 10-22-2024 Nando Wiggins MD [facility] Start: 10-17-2024 End: 10-17-2024 Salma MINER -[facility] Work Phone: Start: 10-17-2024 End: 10-17-2024 ambulatory Salma Cervantes Facility:[facility] Start: 10-16-2024 End: 10-16-[address] Nando Wiggins MD Work Phone: [facility] Start: 10-16-2024 End: 10-16-2024 Nando Wiggins MD [facility] Start: 10-08-2024 ambulatory Nando Wiggins OLS Fa cility:[facility] Start: 10-08-2024 Nando Wiggins MD [facility] Start: 10-03-2024 End: 10-03-2024 [facility] Work Phone: Start: 10-03-2024 End: 10-03-[address] Jean Yan MD Work Phone: [facility] Work Phone: Start: 10-02-2024 End: 10-02-[address] Nando Wiggins MD Work Phone: [facility] Work Phone: Start: 10-02-2024 End: 10-02-2024 [facility] Start: 10-02-2024 End: 10-02-2024 ambulatory Effili Wiggins OLS Facility:[facility] Start: 09-24-2024 ambulatory Warren Whitaker ty:[facility] Start: 09-24-2024 Dr. Randal Damico MD - [facility] Start: 09-24-2024 End: 10-18-[address] Jean Yan MD Work Phone: [facility] Work Phone: Start: 09-24-2024 End: 10-18-2024 Dr. Randal [facility] Work Phone: Start: 09-24-2024 End: 09-24-2024 ambulatory Nando SHERWOOD Facility:[facility] Start: 09-21-2024 ambulatory Salma Cervantes Facility:[facility] Start: 09-17-2024 End: 09-17-2024 [facility] Start: 09-17-2024 End: 09-17-2024 ambulatory Effili SHERWOOD Facility:[facility] Start: 09-12-2024 End: 09-12-[address] Jean Yan MD Work Phone: [facility] Work Phone: Start: 09-12-2024 End: 09-12-2024 [facility] Start: 09-12-2024 End: 09-12-2024 ambulatory Effili SHERWOOD Facility:[facility] Start: 09-10-2024 ambulatory Nando SHERWOOD Fa cility:[facility] Start: 09-10-2024 Nando Wiggins MD [facility] Start: 09-05-2024 End: 09-05-2024 ambulatory Efbiancaongwolf [place] Facility:[facility] Start: 09-05-2024 End: 09-05-2024 Meredith Guevara [facility] -[facility] Work Phone: Start: 09-04-2024 Salma MINER [facility] Start: 09-03-2024 Dr. Earl White MD -[facility] Start: 09-03-2024 Dr. Randal Damico MD -[facility] Start: 09-02-2024 Salma Cervantes PA [facility] Start: 09-01-2024 Salma Cervantes PA [facility] Start: 08-31-2024 ambulatory Salma Cervantes Facility:[facility] Start: 08-31-2024 Dr. Randal Damico MD -[facility] Start: 08-31-2024 Salma Cervantes PA [facility] Start: 08-30-2024 Salma Cervantes PA [facility] Start: 08-30-2024 Dr. Randal Damico MD [facility] Start: 08-29-2024 ambulatory Salma Cervantes Facility:[facility] Start: 08-29-2024 End: 09-04-2024 Evaluation and management of inpatient Nando [place] Facility:[facility] Start: 08-29-2024 End: 09-04-2024 Dr. Earl White MD -[facility] 3 Work Phone: Start: 08-29-2024 Dr. Earl White MD -[facility] Start: 08-29-2024 ambulatory Efrehanbe Holliee Facili ty:[facility] Start: 08-28-2024 ambulatory Efewongbe Oleghe Facili ty:[facility] Start: 08-28-2024 [facility] Start: 08-27-2024 ambulatory Efewongbe Meekghe Facili ty:[facility] Start: 08-27-2024 Dr. Ranadl Damico MD -[facility] Start: 08-27-2024 End: 09-19-2024 [facility] Start: 08-27-2024 End: 09-19-2024 Dr. Randal [facility] Work Phone: Start: 08-27-2024 End: 08-27-2024 ambulatory [facility] Facility[facility] Start: 08-20-2024 ambulatory Efewongbe Oleghe Facili ty:[facility] Start: 08-20-2024 Dr. Randal Damico MD -[facility] Start: 08-20-2024 End: 08-20-2024 ambulatory [facility] Facility:[facility] Start: 08-20-2024 End: 08-20-2024 Dr. Randal [facility] Work Phone: Start: 08-17-2024 ambulatory Efewongbe Oleghe Facili ty:[facility] Start: 08-14-2024 End: 08-14-2024 ambulatory [facility] Facility:[facility] Start: 08-14-2024 End: 08-14-2024 Dr. Nando Wiggins MD -[facility] Work Phone: Start: 08-13-2024 ambulatory Efewongbe Oleghe Facili ty:[facility] Start: 08-13-2024 End: 08-13-2024 Dr. Randal Damico MD -[facility] Start: 08-13-2024 End: 08-13-2024 [facility] Start: 08-06-2024 ambulatory Efewongbe Oleghe Facili ty:[facility] Start: 08-06-2024 Dr. Randal Damico MD -[facility] Start: 08-01-2024 End: 08-01-2024 [facility] Start: 08-01-2024 End: 08-01-2024 ambulatory [facility] Facility:[facility] Start: 08-01-2024 End: 08-01-2024 Dr. Des Garcia DO [facility] Work Phone: Start: 07-31-2024 End: 07-31-2024 ambulatory Efewongbe Oleghe Facility:[facility] Start: 07-31-2024 End: 07-31-2024 Meredith Guevara - -[facility] Work Phone: Start: 07-30-2024 ambulatory Efewongbe Oleghe Facili ty:[facility] Start: 07-30-2024 Dr. Randal Damico MD [facility] Start: 07-23-2024 ambulatory Efewongbe Oleghe Facili ty:[facility] Start: 07-23-2024 Dr. Randal [facility] Start: 07-20-2024 Dr. Margarette Godinez DO -[facility] Work Phone: Start: 07-20-2024 ambulatory Efewongbe Oleghe Facili ty:[facility] Start: 07-20-2024 Dr. Earl White MD [facility] Start: 07-19-2024 Dr. Margarette Godinez DO [facility] Work Phone: Start: 07-18-2024 ambulatory Efewongbe Oleghe Facili ty:[facility] Start: 07-18-2024 Dr. Earl White MD [facility] Start: 07-18-2024 Dr. Margarette Godinez DO -[facility] Work Phone: Start: 07-17-2024 Dr. Jayla Osuna MD [facility] Work Phone: Start: 07-16-2024 ambulatory Efewongbe Oleghe Facili ty:[facility] Start: 07-16-2024 Dr. Zenaida Cooper MD -[facility] Start: 07-15-2024 Dr. Juan Antonio Holden MD [facility] Work Phone: Start: 07-14-2024 Dr. Juan Antonio Holden MD [facility] Work Phone: Start: 07-13-2024 End: 07-20-2024 Evaluation and management of inpatient [facility] Start: 07-13-2024 End: 07-20-2024 Dr. Margarette Godinez DO -[facility] 3 Work Phone: Start: 07-13-2024 ambulatory [facility] Facili ty:[facility] Start: 07-13-2024 End: 07-13-2024 ambulatory [facility] Facility:[facility] Start: 07-13-2024 End: 07-13-2024 Meredith Guevara [employer]-C -[facility] Work Phone: Start: 07-11-2024 End: 07-12-2024 Patient encounter procedure Pham Walker MA [facility] [place] Comment on above: Population Health Na vigation Outreach ([facility]) Start: 07-11-2024 End: 07-20-2024 [facility]ulatory [facility] [place] Start: 07-11-2024 End: 07-20-2024 Dr. Randal Damico MD [facility] Work Phone: Start: 07-10-2024 End: 07-10-2024 ambulatory [facility] Facility:[facility] Start: 07-10-2024 End: 07-10-2024 Meredith Guevara NP-C -[facility] Work Phone: Start: 07-09-2024 End: 07-10-2024 [facility]: Refill Request Start: 07-09-2024 Nando Wiggins MD - [facility] [place] Start: 07-07-2024 End: 07-07-2024 Dr. Alicia Loo DO -Emergency Departmen t Work Phone: Start: 07-07-2024 End: 07-07-2024 Emergency department patient visit [facility] Facility[facility] Start: 07-03-2024 End: 07-03-2024 Dr. Eric Franklin MD -Emergency Departmen t Work Phone: Start: 07-03-2024 End: 07-03-2024 Emergency department patient visit Eric Franklin Facility:[facility] Start: 07-02-2024 Dr. Fernando stein DO -[facility] Work Phone: Start: 07-02-2024 End: 07-02-2024 ambulatory Nando Wiggins Facility:[facility] Start: 07-02-2024 End: 07-02-2024 Dr. Fernando Oliveros DO -Progressive Care Unit Work Phone: Start: 06-25-2024 ambulatory Nando Wiggins OLS Fa cility:[facility] Start: 06-25-2024 Nando Bravo Start: 06-20-2024 End: 06-20-2024 Salma MINER -[facility] Work Phone: Start: 06-20-2024 End: 06-20-2024 ambulatory Salma Cervantes Facility:[facility] Start: 06-19-2024 End: 06-22-2024 ambulatory Warren Reji Facility:[facility] Start: 06-19-2024 End: 06-22-2024 Dr. Des Ruelas [facility] Work Phone: Start: 06-18-2024 ambulatory Nando SHERWOOD Fa cility:[facility] Start: 06-18-2024 Nando Bravo Start: 06-11-2024 End: 06-11-2024 Patient encounter procedure [facility] [place] Comment on above: Population Health Na vigation Outreach ([facility]) Start: 06-11-2024 End: 06-11-2024 ambulatory [facility] [place] Start: 06-11-2024 Nando Bravo Start: 06-08-2024 ambulatory Nando SHERWOOD Fa cility:[facility] Start: 06-08-2024 Nando Wiggins MD -[facility] [place] Start: 06-06-2024 End: 06-06-2024 ambulatory Nando Wiggins Facility[facility] Start: 06-06-2024 End: 06-06-2024 Meredith STEWART -[facility] Work Phone: Start: 06-06-2024 End: 06-06-2024 ambulatory Des Ruelas Facility:[facility] Start: 06-06-2024 End: 06-06-2024 Dr. Des Ruelas DPM -S[facility] Day [facility] Start: 06-06-2024 End: 06-06-2024 ambulatory Nando Wiggins KAELA Facility:[facility] Start: 06-04-2024 End: 06-04-2024 ambulatory Nando Wiggins Facility:[facility] Start: 05-30-2024 End: 06-05-2024 Telephone encounter Husam Yan MD Work Phone: [facility] Comment on above: Patient Update; Fill out Surgical Release Forms Start: 05-28-2024 ambulatory Nando Wiggins OLS Fa cility:[facility] Start: 05-22-2024 ambulatory Earl White Facility:[facility] Start: 05-22-2024 End: 05-22-2024 ambulatory Earl Dacono Facility:[facility] Start: 05-21-2024 ambulatory Deboffutt afbwolf Wiggins OLS Fa cility:[facility] Start: 05-17-2024 ambulatory Warren Mendoza Facili ty:[facility] Start: 05-17-2024 End: 05-22-2024 ambulatory Warren Mendoza Facility:[facility] Start: 05-15-2024 End: 05-15-2024 ambulatory Nando Wiggins Facility:[facility] Start: 05-11-2024 End: 05-11-2024 ambulatory Jean Yan Facility:[facility] Start: 05-04-2024 ambulatory Deni Robles ility:[facility] Start: 05-04-2024 End: 05-10-2024 ambulatory Salma Cervantes Facility:[facility] Start: 05-04-2024 End: 05-10-2024 Evaluation and management of inpatient Jaswant Montgomery Facility:[facility] Start: 05-02-2024 ambulatory Jean Yan Faci lity:[facility] Start: 04-23-2024 End: 04-23-2024 ambulatory Sridevi Miller MA [facility] Start: 04-23-2024 End: 04-23-2024 Patient encounter procedure Sridevi Miller MA [facility] Comment on above: Population Health Na vigation Outreach ([employer] ) Start: 04-16-2024 ambulatory Jayla Osuna [facility] Start: 04-16-2024 End: 04-16-2024 ambulatory Jean Yan Facility:[facility] Start: 04-14-2024 End: 04-24-2024 Evaluation and management of inpatient Jayla Osuna Facility:[facility] Start: 04-14-2024 ambulatory Jayla Osuna [facility] Start: 04-14-2024 End: 04-14-2024 ambulatory HUSAM YAN Facility:[facility] Start: 04-14-2024 End: 04-14-2024 Patient encounter procedure Usman Quesada APRN.CNP Work Phone: [facility] Comment on above: Right foot infection (Primary Dx) Start: 04-13-2024 End: 04-17-2024 Telephone encounter Lauren Arzola APRN.CNP Work Phone: [facility] Comment on above: blood sugar reading average Start: 04-05-2024 End: 04-06-2024 Telephone encounter Lauren Arzola APRN.CNP Work Phone: [facility] Comment on above: blood sugar average Start: 03-28-2024 End: 03-28-2024 Patient encounter procedure Lauren Arzola APRN.CNP Work Phone: [facility] Comment on above: 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 Start: 12-15-2023 End: 02-02-2024 Refill Husam Yan MD Work Phone: [facility] [place] Comment on above: Refill Request (See Rx notes) Start: 09-08-2023 End: 09-08-2023 ambulatory JEAN PIERRE ARREAGA MD Facility:[facility] Start: 09-08-2023 End: 09-08-2023 SAME DAY STAY JEAN PIERRE ARREAGA MD [facility] Start: 09-06-2023 Telephone encounter Jean Yan MD Work Phone: [facility] [place] Comment on above: Medication Request Start: 08-08-2023 Telephone encounter Jean Yan MD Work Phone: [facility] [place] Comment on above: Medication Problem ( Freestyle toribio 14 day sensor kit - patient's sensor reader is a toribio 2 and the sensors ordered by our office are incompatible with his reader ) Start: 07-28-2023 Refill Husam Yan MD Work Phone: [facility] [place] Comment on above: Refill Request Start: 07-12-2023 Refill Husam Yan MD Work Phone: [facility] [place] Comment on above: Refill Request Start: 07-11-2023 Refill Husam Yan MD Work Phone: [facility] Comment on above: Refill Request Start: 06-27-2023 End: 06-27-2023 Patient encounter procedure Danilo Cadeeugene Work Phone: Podiatry Comment on above: 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, without long-term current use of insulin (HCC) (Primary Dx); Onychomycosis; Left foot pain; Right foot pain Start: 03-15-2023 Telephone encounter Jean Yan MD Work Phone: [facility] [place] Comment on above: [facility] requesting records Start: 03-08-2023 Telephone encounter Jaen Yan MD Work Phone: [facility] [place] Comment on above: Medication Problem Start: 02-23-2023 Telephone encounter Jean Yan MD Work Phone: [facility] [place] Comment on above: Insurance Authorizat ion Start: 01-04-2023 Refill Husam Yan MD Work Phone: [facility] [place] Start: 12-06-2022 End: 12-06-2022 Patient encounter procedure Lauren Arzola APRN.CNP Work Phone: [facility] [place] Comment on above: 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, without long-term current use of insulin (HCC) (Primary Dx); Lower extremity edema; ESRD (end stage renal disease) on dialysis ([facility]); Chronic diastolic heart failure (HCC); Essential hypertension; Mobitz (type) I (Wenckebach's) atrioventricular block; At high risk for falls Start: 11-15-2022 Refill Husam Yan MD Work Phone: [facility] [place] Comment on above: Refill Request Start: 11-04-2022 Refill Husam Yan MD Work Phone: [facility] [place] Comment on above: Refill Request Start: 10-27-2022 Refill Husam Yan MD Work Phone: [facility] Comment on above: Refill Request Start: 09-06-2022 End: 09-06-2022 Patient encounter procedure Lauren Dariusz STOKES Work Phone: [facility] [place] Comment on above: 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, without long-term current use of insulin (HCC) (Primary Dx); ESRD (end stage renal disease) on dialysis ([facility]); Chronic diastolic heart failure (HCC) Start: 08-19-2022 Refill Husam Yan MD Work Phone: [facility] Comment on above: Refill Request Start: 06-08-2022 Telephone encounter Jean Yan MD Work Phone: [facility] [place] Comment on above: Results Start: 06-07-2022 End: 06-07-2022 Patient encounter procedure Husam Yan MD Work Phone: [facility] [place] Comment on above: 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, without long-term current use of insulin ([facility]) (Primary Dx); Essential hypertension; Mixed hyperlipidemia; ESRD (end stage renal disease) on dialysis ([facility]); Chronic diastolic heart failure ([facility]); Bradycardia; Lower extremity edema; Noncompliance of patient with dietary regimen; 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); 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 edema, with long-term current use of insulin (HCC) Start: 03-09-2022 Telephone encounter Jean Yan MD Work Phone: [facility] [place] Comment on above: Results Start: 03-05-2022 End: 03-05-2022 Patient encounter procedure Husam Yan MD Work Phone: [facility] [place] Comment on above: 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, without long-term current use of insulin (HCC) (Primary Dx); Essential hypertension; Mixed hyperlipidemia; 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); Need for COVID-19 vaccine Start: 02-03-2022 Telephone encounter Jean Yan MD Work Phone: [facility] Comment on above: Insurance Authorizat ion (Information on Glargine) Start: 02-02-2022 Refill Husam Yan MD Work Phone: [facility] Comment on above: Refill Request Start: 01-26-2022 Refill Husam Yan MD Work Phone: [facility] Comment on above: Refill Request Start: 12-14-2021 Refill Husam Yan MD Work Phone: [facility] Comment on above: Refill Request Start: 11-06-2021 Non-patient / Non-visit Dr. Mike Yan Work Phone: [facility] Start: 11-06-2021 End: 11-06-2021 Admission to same day surgery center Dr. Jean Yan Work Phone: [facility]-Heat Treat Inspector/Special Procedures Start: 10-21-2021 End: 10-21-[address] 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 Yasir Yan Work Phone: [facility] Procedures Date Procedure Procedure Detail Performing [...] Dr. Nando iWggins MD Work Phone: Start: 01-25-2025 Mean corpuscular hemoglobin concentration determination Dr. Nando Wiggins MD Work Phone: Start: 01-25-2025 Nucleated red blood cell count procedure Dr. Nanod Wiggins MD Work Phone: Start: 01-25-2025 Platelet [...] Comment: Speci men Type: BLOOD SPECIMENOrdering Facility: [facility] Address: [address] [place] [address] Performed By: #### T SCR ####CC MAIN BLOOD BANKCLIA [id number] [address] Start: 11-23-2024 Antibody screen JUAN ANTONIO PHER [place] Comment on above: Order Comment: Speci men Type: BLOOD SPECIMENOrdering Facility: [facility] Address: [address] [place] [address] Performed By: #### T SCR ####CC MAIN BLOOD BANKCLIA [id number] [address] Start: 11-22-2024 Plain chest X-ray Dr. [...] 12-06-2022 Hemoglobin A1c/Hemoglobin.total in Blood Lauren Podlogar GUITAR MAKER.CAR USHER Work Phone: Start: 09-06-2022 Hemoglobin A1c/Hemoglobin.total in Blood Lauren Podlogar GUITAR MAKER.CAR USHER Work Phone: Start: 03-05-2022 PFIZER-BIONTECH COVI D-19 [...] Detail Author Start: 04-26-2028 Urine microalbumin profile [facility] Start: 11-23-2025 Hepatitis B surface antibody level LDL Cholesterol [facility] Start: 09-17-2025 Glaucoma screening Dilated Retinal Exam [facility] Start: 05-26-2025 Hemoglobin A1c measurement HbA1C [facility] Start: 03-12-2025 [facility] Start: 03-07-2025 [facility] Start: 01-29-2025 Patient discharge [facility] Start: 01-28-2025 Transfusion of blood product [facility] Start: 01-28-2025 End: 01-28-2025 [facility] Start: 01-28-2025 Hemodialysis care [facility] Start: 01-28-2025 Administration of blood product [facility] Start: 01-26-2025 [facility] Start: 01-26-2025 Referral for physical therapy [facility] Start: 01-26-2025 Referral to occupational therapist [facility] Start: 01-26-2025 Referral to service [facility] Start: 01-26-2025 [facility] Start: 01-26-2025 Care planning and problem solving actions [facility] Start: 01-26-2025 Fluoroscopic guidance [facility] Start: 01-26-2025 Plain X-ray of femur [facility] Start: 01-26-2025 End: 01-26-2025 [facility] Start: 01-26-2025 Hemodialysis care [facility] Start: 01-25-2025 Application of intermittent pneumatic compression device [facility] Start: 01-25-2025 Referral to naval police coxswain [facility] Start: 01-25-2025 Consultation [facility] Start: 01-25-2025 Following clinical pathway protocol [facility] Start: 01-25-2025 Assessment of risk of venous thromboembolism [facility] Start: 01-25-2025 Care regimes management [facility] Start: 01-25-2025 Insertion of catheter into peripheral vein [facility] Start: 01-25-2025 Measuring intake and output [facility] Start: 01-25-2025 Notification of physician [facility] Start: 01-25-2025 Oxygen therapy [facility] Start: 01-25-2025 Providing care according to standard [facility] Start: 01-25-2025 Provision of activity privileges [facility] Start: 01-25-2025 Referral for physical therapy [facility] Start: 01-25-2025 Referral to occupational therapist [facility] Start: 01-25-2025 Referral to service [facility] Start: 01-25-2025 End: 01-25-2025 [facility] Start: 01-25-2025 Admission procedure [facility] Start: 01-25-2025 Hospital admission, emergency, from emergency room, medical nature [facility] Start: 01-25-2025 Patient referral to dietitian [facility] Start: 01-21-2025 Influenza vaccination Influenza Vaccine (#1) [facility] Start: 01-08-2025 End: 01-08-2025 Patient encounter procedure 01/08/2025 10:30 AM EDT Appointment Cardiology [address] [place] [address] OUTPATIENT 4-6W DEVICE CHECK (PACEMAKER) Cardiology Comment on above: OUTPATIENT 4-6W DEVICE CHECK (PACEMA KER) Start: 11-22-2024 End: 11-22-2024 [facility] Start: 11-08-2024 [facility] Start: 09-04-2024 Patient discharge [facility] Start: 09-04-2024 End: 09-04-2024 [facility] Start: 09-04-2024 Hemodialysis care [facility] Start: 09-03-2024 Application of intermittent pneumatic compression device [facility] Start: 09-03-2024 Wound care [facility] Start: 09-03-2024 [facility] Start: 09-01-2024 End: 09-01-2024 [facility] Start: 09-01-2024 Hemodialysis care [facility] Start: 09-01-2024 Inhalation therapy procedure [facility] Start: 08-30-2024 Following clinical pathway protocol [facility] Start: 08-30-2024 [facility] Start: 08-30-2024 End: 08-30-2024 [facility] Start: 08-30-2024 Hemodialysis care [facility] Start: 08-30-2024 Referral to naval police coxswain [facility] Start: 08-29-2024 Following clinical pathway protocol [facility] Start: 08-29-2024 Assessment of risk of venous thromboembolism [facility] Start: 08-29-2024 Care regimes management [facility] Start: 08-29-2024 Insertion of catheter into peripheral vein [facility] Start: 08-29-2024 Notification of physician [facility] Start: 08-29-2024 Providing care according to standard [facility] Start: 08-29-2024 Referral to occupational therapist [facility] Start: 08-29-2024 Referral to service [facility] Start: 08-29-2024 End: 08-29-2024 [facility] Start: 08-29-2024 Admission procedure [facility] Start: 08-01-2024 [facility] Start: 07-20-2024 Patient discharge [facility] Start: 07-19-2024 End: 07-19-2024 [facility] Start: 07-19-2024 Hemodialysis care [facility] Start: 07-17-2024 End: 07-17-2024 [facility] Start: 07-17-2024 Hemodialysis care [facility] Start: 07-17-2024 Wound care [facility] Start: 07-16-2024 Following clinical pathway protocol [facility] Start: 07-16-2024 Inhalation therapy procedure [facility] Start: 07-14-2024 [facility] Start: 07-14-2024 Consultation [facility] Start: 07-14-2024 End: 07-14-2024 [facility] Start: 07-14-2024 Hemodialysis care [facility] Start: 07-13-2024 Application of intermittent pneumatic compression device [facility] Start: 07-13-2024 Assessment of risk of venous thromboembolism [facility] Start: 07-13-2024 Care regimes management [facility] Start: 07-13-2024 Consultation for treatment [facility] Start: 07-13-2024 Insertion of catheter into peripheral vein [facility] Start: 07-13-2024 Measuring intake and output [facility] Start: 07-13-2024 Notification of physician [facility] Start: 07-13-2024 Providing care according to standard [facility] Start: 07-13-2024 Provision of activity privileges [facility] Start: 07-13-2024 Referral to naval police coxswain [facility] Start: 07-13-2024 Referral to occupational therapist [facility] Start: 07-13-2024 Referral to diamond assorter [facility] Start: 07-13-2024 Referral to service [facility] Start: 07-13-2024 End: 07-13-2024 [facility] Start: 07-13-2024 Admission procedure [facility] Start: 07-09-2024 End: 07-09-2024 Patient encounter procedure 07/09/2024 9:40 AM EST Office Visit [facility] [place] [address] [place] [address] Husam Yan MD [address] [place] [address] 6 month follow up [facility] [place] Comment on above: 6 month follow up Start: 07-07-2024 [facility] Start: 07-03-2024 [facility] Start: 07-02-2024 Patient discharge [facility] Start: 07-02-2024 End: 07-02-2024 [facility] Start: 07-02-2024 Hemodialysis care [facility] Start: 07-02-2024 Assessment of risk of venous thromboembolism [facility] Start: 07-02-2024 Catheterization of vein [facility] Start: 07-02-2024 Insertion of catheter into peripheral vein [facility] Start: 07-02-2024 Measuring intake and output [facility] Start: 07-02-2024 Providing care according to standard [facility] Start: 07-02-2024 Referral to naval police coxswain [facility] Start: 07-02-2024 Admission procedure [facility] Start: 06-28-2024 Hemoglobin A1c measurement HbA1C [facility] Start: 06-06-2024 Adjt tis trns/reargmt f/c/c/m/n/a/g/h/f 10sqcm/< [facility] Start: 06-06-2024 Amputation foot transmetarsal [facility] Start: 06-06-2024 Anes open proc bones lower leg/ankle/foot nos [facility] Start: 06-06-2024 Catheterization of vein [facility] Start: 06-06-2024 Neurovascular assessment [facility] Start: 06-06-2024 Patient discharge [facility] Start: 06-06-2024 Procedure discontinued [facility] Start: 06-06-2024 Vital signs measurements [facility] Start: 06-06-2024 [facility] Start: 05-25-2024 Hepatitis B surface antibody level LDL Cholesterol [facility] Start: 05-23-2024 Advance Directive Discussion Advance Directive Discussion [facility] Start: 05-23-2024 Medicare Advantage Annual Wellness Visit Medicare Advantage Annual Wellness Visit [facility] Start: 04-27-2024 Glaucoma screening Dilated Retinal Exam [facility] Start: 10-02-2024 3 comp foot exam completed Diabetic Foot Exam [facility] Start: 02-22-2024 Diabetic foot examination Diabetic Foot Exam [facility] Start: 02-10-2024 End: 02-10-2024 Patient encounter procedure 02/10/2024 11:30 AM EDT Office Visit Podiatry [address] [place] [address] [facility] [address] [place] [address] 3 month follow up nail care Podiatry Comment on above: 3 month follow up nail care Start: 01-22-2024 Covid-19 Vaccine () Covid-19 Vaccine () [facility] Start: 01-22-2024 Covid-19 Vaccine () Covid-19 Vaccine () [facility] Start: 01-22-2024 Influenza vaccination Influenza Vaccine (#1) [facility] Start: 01-06-2024 End: 04-06-2024 Comprehensive metabolic 2000 panel - Serum or Plasma COMPREHENSIVE METABOLIC PANEL Lab Routine 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 edema, with long-term current use of insulin (HCC) Expected: 01/06/2024, Expires: 04/06/2024 [facility] Work Phone: Comment on above: Expected: 01/06/2024, Expires: Start: 01-06-2024 End: 04-06-2024 Hemoglobin A1c in Blood HEMOGLOBIN A1C Lab Routine 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 edema, with long-term current use of insulin (HCC) Expected: 01/06/2024, Expires: 04/06/2024 [facility] Comment on above: Expected: 01/06/2024, Expires: 4 Start: 11-04-2023 End: 11-04-2023 Patient encounter procedure Podiatry Comment on above: 3 month follow up nail care 4 month follow up Start: 08-24-2023 Hemoglobin A1c measurement HbA1C [facility] Start: 07-06-2023 Hepatitis B Vaccine (9 of 9 - Risk Dialysis Recombivax 3-dose series) Hepatitis B Vaccine (9 of 9 - Risk Dialysis Recombivax 3-dose series) [facility] Start: 06-24-2023 Covid-19 Vaccine (4 - Additional dose for Gage series) Covid-19 Vaccine (4 - Additional dose for Gage series) [facility] Start: 06-24-2023 Covid-19 Vaccine () Covid-19 Vaccine () [facility] Start: 06-07-2023 SHINGRIX VACCINE (1 of 2) SHINGRIX VACCINE (1 of 2) [facility] Comment on above: Postponed from 1954 (Declined at t his time) Postponed from 04/30 (Declined at this time) Start: 05-23-2023 Advance Directive Discussion Advance Directive Discussion [facility] Start: 05-23-2023 Behavioral Health Screening Behavioral Health Screening [facility] Start: 03-08-2023 Hemoglobin A1c/Hemoglobin.total in Blood HBA1C [facility] Start: 03-05-2023 Hepatitis B surface antibody level LDL CHOLESTEROL [facility] Start: 03-04-2023 Hepatitis B Vaccine (6 of 6 - Risk Dialysis Recombivax 3-dose series) Hepatitis B Vaccine (6 of 6 - Risk Dialysis Recombivax 3-dose series) [facility] Start: 02-08-2023 Hepatitis C antibody, confirmatory test DILATED RETINAL EXAM [facility] Start: 01-21-2023 Influenza vaccination INFLUENZA (#1) [facility] Start: 12-06-2022 Hemoglobin A1c/Hemoglobin.total in Blood HBA1C [facility] Start: 09-06-2022 End: 11-06-2022 Hemoglobin A1c in Blood HGB A1C Lab Routine 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, without long-term current use of insulin (HCC) Expected: 09/06/2022, Expires: 11/06/2022 [facility] Work Phone: Comment on above: Expected: 09/06/2022, Expires: Start: 09-05-2022 Hemoglobin A1c/Hemoglobin.total in Blood HBA1C [facility] Start: 09-02-2022 3 comp foot exam completed DIABETIC FOOT EXAM [facility] Start: 07-06-2022 COVID-19 VACCINE (4 - Additional dose for Gage series) COVID-19 VACCINE (4 - Additional dose for Gage series) [facility] Start: 06-07-2022 End: 08-07-2022 Comprehensive metabolic 2000 panel - Serum or Plasma [facility] Work Phone: Comment on above: Expected: 06/07/2022, Expires: 3 Start: 06-07-2022 End: 08-07-2022 Hemoglobin A1c in Blood [facility] Work Phone: Comment on above: Expected: 06/07/2022, Expires: 3 Start: 06-05-2022 Hemoglobin A1c/Hemoglobin.total in Blood HBA1C [facility] Start: 05-23-2022 ADVANCE DIRECTIVE DISCUSSION ADVANCE DIRECTIVE DISCUSSION [facility] Start: 02-25-2022 Hepatitis B surface antibody level LDL CHOLESTEROL [facility] Start: 01-21-2022 Influenza vaccination INFLUENZA (#1) [facility] Start: 12-05-2021 Hepatitis C antibody, confirmatory test DILATED RETINAL EXAM [facility] Start: 12-02-2021 Hemoglobin A1c/Hemoglobin.total in Blood HBA1C [facility] Start: 07-24-2021 COVID-19 VACCINE (3 - Booster for Gage series) COVID-19 VACCINE (3 - Booster for Gage series) [facility] Start: 05-23-2021 ADVANCE DIRECTIVE DISCUSSION ADVANCE DIRECTIVE DISCUSSION [facility] Start: 05-23-2021 DEPRESSION ASSESSMENT DEPRESSION ASSESSMENT [facility] Start: 05-21-2021 COVID-19 VACCINE (3 - Booster for Gage series) COVID-19 VACCINE (3 - Booster for Gage series) [facility] Start: 05-12-2017 End: 05-12-2017 Appointment Appointment [facility] Work Phone: Start: 10-27-2016 End: 10-27-2016 Appointment Appointment [facility] Work Phone: Start: 10-27-2016 End: 10-27-2016 Echocardiography Echocardiogram (complete) [facility] Work Phone: Start: 10-27-2016 End: 10-27-2016 Electrocardiogram, complete EKG (In office) [facility] Work Phone: Start: 10-27-2016 End: 10-27-2016 Follow Up Appt 6 months Follow Up Appt 6 months [facility] Work Phone: Start: 10-27-2016 End: 10-27-2016 MMM MMM [facility] Work Phone: Start: 10-27-2016 End: 10-27-2016 Nuclear stress test -Lexiscan Nuclear stress test -Lexiscan [facility] Work Phone: Start: 2012 RSV Vaccine (1 - 1-dose 75+ series) RSV Vaccine (1 - 1-dose 75+ series) [facility] Start: 1997 RSV Vaccine (1 - 1-dose 60+ series) RSV Vaccine (1 - 1-dose 60+ series) [facility] Start: 1987 SHINGRIX VACCINE (1 of 2) SHINGRIX VACCINE (1 of 2) [facility] Start: 1956 SHINGRIX VACCINE (1 of 2) SHINGRIX VACCINE (1 of 2) [facility] Start: 1955 Anxiety Screening Anxiety Screening [facility] Start: 1955 Depression Screening Depression Screening [facility] Patient Education [facility] Work Phone: Patient referral [facility] Work Phone: Referral for further care [facility] Immunizations Immunization Date Immunization Notes Care Provider [facility] 04-01-2024 influenza virus vaccine, unspecified formulation William Chilel MD Work Phone: [facility] 03-15-2024 influenza, injectabl e, quadrivalent, preservative free Dr. Jean Yan MD Work Phone: [facility] 02-21-2023 COVID-19 vaccine, ag e 12+ yr, 2022- season ([employer]-SwivelNT[employer] Protective) Husam Yan MD Work Phone: [facility] 02-21-2023 influenza (HD-IIV4) vaccine, age 65+ yr, high dose, quadrivalent, PF (FLUZONE HIGH-DOSE) Husam Yan MD Work Phone: [facility] 02-21-2023 influenza virus vaccine, unspecified formulation JEAN PIERRE ARREAGA MD [facility] 02-21-2023 SARS-CoV-2 (COVID-19 ) mRNAMUL.[id number] JEAN PIERRE ARREAGA MD [facility] Comment on above: Result Comment: 2023: [id number] 03-05-2022 COVID-19 booster vaccine, age 12+ yr, bivalent ([employer]-BION[employer]mpakt Protective) Husam Yan MD Work Phone: [facility] 03-04-2022 Hepatitis B vaccine (recombinant), CpG adjuvanted Husam Yan MD Work Phone: [facility] Work Phone: 02-25-2022 influenza, high-dose , quadrivalent vaccine (FLUZONE HIGH DOSE QUADRIVALENT) Husam Yan MD Work Phone: [facility] Work Phone: 03-26-2021 SARS-CoV-2 (COVID-19 ) mRNA-1273 vaccine JEAN PIERRE ARREAGA MD [facility] 02-17-2021 influenza, high-dose , quadrivalent vaccine (FLUZONE HIGH DOSE QUADRIVALENT) Husam Yan MD Work Phone: [facility] 12-30-2020 Hepatitis B vaccine (recombinant), CpG adjuvanted Husam Yan MD Work Phone: [facility] 10-02-2020 Hepatitis B vaccine (recombinant), CpG adjuvanted Husam Yan MD Work Phone: [facility] 07-31-2020 COVID-19 vaccine (GAGE) Husam Yan MD Work Phone: [facility] Comment on above: Result Comment: 2023: [id number] 07-01-2020 hepatitis B vaccine, adult dosage Husam Yan MD Work Phone: [facility] 06-03-2020 hepatitis B vaccine, adult dosage Husam Yan MD Work Phone: [facility] 04-19-2020 influenza virus vaccine, unspecified formulation JEAN PIERRE ARREAGA MD [facility] 04-19-2020 influenza, injectabl e, quadrivalent, preservative free Dr. Jean Yan MD Work Phone: [facility] 04-19-2020 influenza, seasonal, injectable Dr. Jean Yan Work Phone: [facility] Work Phone: 04-19-2020 influenza, seasonal, injectable, preservative free Husam Yan MD Work Phone: [facility] Work Phone: 02-28-2019 influenza virus vaccine, unspecified formulation JEAN PIERRE ARREAGA MD [facility] 02-28-2019 influenza, high dose seasonal, preservative-free Husam Yan MD Work Phone: [facility] 06-12-2014 pneumococcal conjuga te vaccine, 13 valent Husam Yan MD Work Phone: [facility] 02-20-2011 influenza virus vaccine, unspecified formulation Husam Yan MD Work Phone: [facility] Work Phone: 02-14-2009 influenza virus vaccine, unspecified formulation Husam Yan MD Work Phone: [facility] Work Phone: 11-01-2007 diphtheria and tetan us toxoids, adsorbed for pediatric use Husam Yan MD Work Phone: [facility] Work Phone: 05-08-2007 influenza virus vaccine, unspecified formulation Husam Yan MD Work Phone: [facility] Work Phone: 03-28-2006 influenza virus vaccine, unspecified formulation Husam Yan MD Work Phone: [facility] 03-04-2006 pneumococcal polysaccharide vaccine, 23 valent Husam Yan MD Work Phone: [facility] Work Phone: Payers Date Payer Category Payer Medicaid [id number] 10-28-2023 Self-pay [id number] 01-21-2021 Medicare HUMANA MEDICARE HUMANA MEDICARE PPO [id number] 01/21/2021-Present [phone] [place] [address] [id number] 05-23-2017 Medicare [id number]. [id number] 05-23-2017 Medicare (Managed Care) [place] [id number] 05-23-2012 Medicare [id number] 1935 Unknown [id number] 2.16.840.1.615920.3.579.2. 627 Unknown SELF PAY INSURANCE [id number] Unknown [id number] 2.16.840.1.251003.3.579.2. 462 Unknown [id number] 2.16.840.1.115136.3.579.2. 462 Unknown [id number] 2.16.840.1.146876.3.579.2. 462 Unknown [id number] 2.16.840.1.502130.3.579.2. 462 Unknown [id number] 2.16.840.1.535436.3.579.2. 462 Unknown [id number] 2.840.1.178168.3.579.2. 462 Unknown [id number] 2..840.1.090480.3.579.2. 462 Unknown [id number] 2.16.840.1.876615.3.579.2. 462 Unknown [id number] 2.16.840.1.504133.3.579.2. 462 Unknown [id number] 2..840.1.230985.3.579.2. 462 Unknown [id number] 2..840.1.111639.3.579.2. 462 Unknown [id number] 2.16.840.1.284056.3.579.2. 462 Unknown [id number] 2.16.840.1.360522.3.579.2. 462 Unknown [id number] 2.16.840.1.614176.3.579.2. 462 Unknown [id number] 2.16.840.1.248958.3.579.2. 462 Unknown [id number] 2.16.840.1.128878.3.579.2. 462 Unknown [id number] 2.16.840.1.014822.3.579.2. 462 Unknown [id number] 2.16.840.1.755147.3.579.2. 462 Unknown [id number] 2.16.840.1.561559.3.579.2. 462 Unknown [id number] 2.16.840.1.268345.3.579.2. 462 Unknown [id number] 2.16.840.1.891382.3.579.2. 462 Unknown [id number] 2.16.840.1.957550.3.579.2. 462 Unknown [id number] 2.16.840.1.747071.3.579.2. 462 Unknown [id number] 2.16.840.1.870167.3.579.2. 462 Unknown [id number] 2.16.840.1.429704.3.579.2. 462 Unknown [id number] 2.16.840.1.308926.3.579.2. 462 Unknown [id number] 2.16.840.1.296439.3.579.2. 462 Unknown [id number] 2.16.840.1.262084.3.579.2. 462 Unknown [id number] 2.16.840.1.295279.3.579.2. 462 Unknown [id number] 2.16.840.1.883358.3.579.2. 462 Unknown [id number] 2.16.840.1.789248.3.579.2. 462 Unknown [id number] 2.16.840.1.159579.3.579.2. 462 Unknown [id number] 2.16.840.1.281344.3.579.2. 462 Unknown [id number] 2.16.840.1.054331.3.579.2. 462 Unknown [id number] 2.16.840.1.784009.3.579.2. 462 Unknown [id number] 2.16.840.1.754216.3.579.2. 462 Unknown [id number] 2.16.840.1.345064.3.579.2. 462 Unknown [id number] 2.16.840.1.501854.3.579.2. 462 Unknown [id number] 2.16840.1.336777.3.579.2. 462 Unknown [id number] 2.16.840.1.909343.3.579.2. 462 Unknown [id number] 2.840.1.945920.3.579.2. 462 Unknown [id number] 2..840.1.043625.3.579.2. 462 Unknown [id number] 2.840.1.725537.3.579.2. 462 Unknown [id number] 2.840.1.051800.3.579.2. 462 Unknown [id number] 2.840.1.019971.3.579.2. 462 Unknown [id number] 2.840.1.827737.3.579.2. 462 Unknown [id number] 2.840.1.073471.3.579.2. 462 Unknown [id number] 2.840.1.786894.3.579.2. 462 Unknown [id number] 2.840.1.962041.3.579.2. 462 Unknown [id number] 2.840.1.710324.3.579.2. 462 Unknown [id number] 2.840.1.952457.3.579.2. 462 Unknown [id number] 2.840.1.556296.3.579.2. 462 Unknown [id number] 2.840.1.495861.3.579.2. 462 Unknown [id number] 2.16.840.1.999492.3.579.2. 462 Unknown [id number] 2.16.840.1.029007.3.579.2. 462 Unknown [id number] 2.16.840.1.770641.3.579.2. 462 Unknown [id number] 2.16.840.1.981840.3.579.2. 462 Unknown [id number] 2.16.840.1.399616.3.579.2. 462 Unknown [id number] 2.16.840.1.215287.3.579.2. 462 Unknown [id number] 2.16.840.1.293107.3.579.2. 462 Unknown [id number] 2.840.1.289286.3.579.2. 462 Unknown [id number] 2.16840.1.945308.3.579.2. 462 Unknown [id number] 2.16.840.1.924006.3.579.2. 462 Unknown [id number] 2.16.840.1.125950.3.579.2. 462 Unknown [id number] 2.16.840.1.185354.3.579.2. 462 Unknown [id number] 2.16.840.1.913004.3.579.2. 462 Unknown [id number] 2.16.840.1.636908.3.579.2. 462 Unknown [id number] 2.16.840.1.231458.3.579.2. 462 Unknown [id number] 2.16.840.1.263599.3.579.2. 462 Unknown [id number] 2.16.840.1.863325.3.579.2. 462 Unknown [id number] 2.16.840.1.994695.3.579.2. 462 Unknown [id number] 2.16.840.1.288512.3.579.2. 462 Unknown [id number] 2.16.840.1.729938.3.579.2. 462 Unknown [id number] 2.16.840.1.820590.3.579.2. 462 Unknown [id number] 2.16.840.1.499676.3.579.2. 462 Unknown [id number] 2.16.840.1.270109.3.579.2. 462 Unknown [id number] 2.16.840.1.961579.3.579.2. 462 Unknown [id number] 2.16.840.1.674858.3.579.2. 462 Unknown [id number] 2.16.840.1.133207.3.579.2. 462 Unknown [id number] 2.16.840.1.187698.3.579.2. 462 Unknown [id number] 2.16.840.1.362540.3.579.2. 462 Unknown [id number] 2.16.840.1.711473.3.579.2. 462 Unknown [id number] 2.16.840.1.195899.3.579.2. 462 Unknown [id number] 2.16.840.1.949709.3.579.2. 462 Unknown [id number] 2.16.840.1.004493.3.579.2. 462 Unknown [id number] 2.16.840.1.815845.3.579.2. 462 Unknown [id number] 2.16.840.1.390724.3.579.2. 462 Unknown [id number] 2.16.840.1.668098.3.579.2. 462 Unknown [id number] 2.16.840.1.129566.3.579.2. 462 Unknown [id number] 2.16.840.1.579970.3.579.2. 462 Unknown [id number] 2.16.840.1.384003.3.579.2. 462 Unknown [id number] 2.16.840.1.773341.3.579.2. 462 Unknown [id number] 2.16.840.1.272658.3.579.2. 462 Unknown [id number] 2.16.840.1.387587.3.579.2. 462 Unknown [id number] 2.16.840.1.722587.3.579.2. 462 Unknown [id number] 2.16.840.1.904147.3.579.2. 462 Unknown [id number] 2.16.840.1.840667.3.579.2. 462 Unknown [id number] 2.16.840.1.350957.3.579.2. 462 Unknown [id number] 2.16.840.1.031229.3.579.2. 462 Unknown [id number] 2.16.840.1.299876.3.579.2. 462 Unknown [id number] 2.16.840.1.722643.3.579.2. 462 Unknown [id number] 2.16.840.1.728469.3.579.2. 462 Unknown [id number] 2.16.840.1.234776.3.579.2. 462 Unknown [id number] 2.16.840.1.086662.3.579.2. 462 Unknown [id number] 2.16.840.1.792347.3.579.2. 462 Unknown [id number] 2.16.840.1.610473.3.579.2. 462 Unknown [id number] 2.16.840.1.230968.3.579.2. 462 Unknown [id number] 2.16.840.1.994013.3.579.2. 462 Unknown [id number] 2.16.840.1.279492.3.579.2. 462 Unknown [id number] 2.16.840.1.111526.3.579.2. 462 Unknown [id number] 2.16.840.1.103933.3.579.2. 462 Unknown [id number] 2.16.840.1.603832.3.579.2. 462 Unknown [id number] 2.16.840.1.701907.3.579.2. 462 Unknown [id number] 2.16.840.1.279548.3.579.2. 462 Unknown [id number] 2.16.840.1.998796.3.579.2. 462 Unknown [id number] 2.16.840.1.992210.3.579.2. 462 Unknown [id number] 2.16.840.1.387807.3.579.2. 462 Unknown [id number] 2.16840.1.973491.3.579.2. 462 Unknown [id number] 2.16.840.1.724585.3.579.2. 462 Unknown [id number] 2.16.840.1.177471.3.579.2. 462 Unknown [id number] 2.16.840.1.053938.3.579.2. 462 Unknown [id number] 2.16.840.1.320602.3.579.2. 462 Unknown [id number] 2.16.840.1.919990.3.579.2. 462 Unknown [id number] 2.16.840.1.835613.3.579.2. 462 Unknown [id number] 2.16.840.1.317675.3.579.2. 462 Unknown [id number] 2.16.840.1.975639.3.579.2. 462 Unknown [id number] 2.16.840.1.803116.3.579.2. 462 Unknown [id number] 2.16.840.1.113502.3.579.2. 462 Unknown [id number] 2.16.840.1.477241.3.579.2. 462 Unknown [id number] 2.16.840.1.195378.3.579.2. 462 Unknown [id number] 2.16.840.1.909149.3.579.2. 462 Unknown [id number] 2.16.840.1.494513.3.579.2. 462 Unknown [id number] 2.16.840.1.477715.3.579.2. 462 Unknown [id number] 2.16.840.1.181962.3.579.2. 462 Unknown [id number] 2.16.840.1.154028.3.579.2. 462 Unknown [id number] 2.16840.1.014789.3.579.2. 462 Unknown [id number] 2.16840.1.859465.3.579.2. 462 Unknown [id number] 2.16840.1.659933.3.579.2. 462 Unknown [id number] 2.16.840.1.189226.3.579.2. 462 Unknown [id number] 2.16.840.1.805000.3.579.2. 462 Unknown [id number] 2.16840.1.337675.3.579.2. 462 Unknown 92824116 2.16.840.1.735019.3.579.2. 462 Unknown 28724730 2.16.840.1.520020.3.579.2. 462 Unknown 46539737 2.16.840.1.993712.3.579.2. 462 Unknown [id number] 2.16.840.1.539736.3.579.2. 462 Unknown [id number] 2.16.840.1.072085.3.579.2. 462 Unknown [id number] 2.16.840.1.114190.3.579.2. 462 Unknown [id number] 2.16.840.1.657942.3.579.2. 462 Unknown [id number] 2.16.840.1.546298.3.579.2. 462 Unknown [id number] 2.16.840.1.886131.3.579.2. 462 Unknown [id number] 2.16.840.1.691746.3.579.2. 462 Social History Date Type Detail Facility Start: 07-25-2017 End: 03-05-2022 Tobacco smoking status NHIS Ex-smoker [facility] History of tobacco use Cigar Smoker [facility] Start: 07-25-2017 End: 03-05-2022 Tobacco use and exposure Smokeless tobacco non-user [facility] Start: 07-15-2021 End: 11-26-2024 Alcohol intake Current drinker of alcohol (finding) [facility] Start: 07-15-2021 End: 12-06-2022 Alcohol intake [facility] Work Phone: Start: 11-18-2016 History SDOH Alcohol Comment rarely [facility] Start: 04-28-2017 Tobacco Comment Occasionally [facility] Start: 1935 Sex Assigned At Not on file [facility] Start: 02-02-2021 End: 03-05-2022 Exposure to SARS-CoV-2 (event) Not sure [facility] Start: 11-06-2021 Tobacco smoking stat us AKIS Unknown if ever smoked [facility] Work Phone: Start: 04-18-2020 None [facility] Start: 08-28-2020 Spouse/ Signif icant Other [facility] Start: 09-26-2020 Non-smoker [facility] Start: 1935 Sex Assigned At Male A [facility] History of tobacco use Current smoker [facility] Start: 12-06-2022 End: 11-26-2024 Tobacco use panel [facility] Work Phone: Adult Depression Screening Assessment 0 [facility] Work Phone: Start: 08-28-2024 End: 03-08-2025 Tobacco smoking status NHIS Never smoked tobacco (finding) [facility] Has the [email or web address], or [employer] threatened to shut off services in your home in past 12Mo No [facility] Work Phone: (I/We) worried wheth er (my/our) food would run out before (I/we) got money to buy more. Never true [facility] Medical Equipment Procedure Code Equipment Code Equipment [...] above or below knee FDA Start: 08-29-2024 [id number], [id number], [id number], [id number], [id number], [id number], [id number], [id number] Start: 09-06-2011 End: 10-27-2022 Comment on above: Test blood sugar(s) 2x daily. Dx E11.65. Insulin: No. Test blood sugar(s) 2x daily. Dx: E11.65. Insulin: No Use one needle for e ach dose. 1x/day. 1 Each once daily. Test blood sugar(s) 2 times daily. Dx: Type 2 DM -E11.65 Insulin: No [id number], [id number], [id number], [id number] FDA Start: 04-28-2017 Comment on above: True Metrix Lancets. Test blood sugar(s) 2x daily. Dx: E11.65. Insulin: No True Metrix Test Str ips. Test blood sugar(s) 2x daily. Dx: E11.65. Insulin: No Goals Date Patient Goal Desired Activity /State Functional Status Date Assessment Result Facility [facility] 11-28-2024 Are you deaf, or do you have serious difficulty hearing No 11/28/2024 11:21 AM Danilo Rankin RN No [facility] 11-28-2024 Are you blind, or do you have serious difficulty seeing, even when wearing glasses No 11/28/2024 11:21 AM Danilo Rankin, ISABEL No [facility] 11-28-2024 Do you have serious difficulty walking or climbing stairs Yes 11/28/2024 11:21 AM Danilo Rankin, ISABEL Yes [facility] 11-28-2024 Do you have difficul ty dressing or bathing No 11/28/2024 11:21 AM GETACHEWT Danilo Nesbitt, ISABEL No [facility] 11-28-2024 Because of a physica l, mental, or emotional condition, do you have difficulty doing errands alone such as visiting a physician's office or shopping Yes 11/28/2024 11:21 AM GETACHEWT Danilo Nesbitt, ISABEL Yes [facility] 09-04-2024 Functional status Bedrest [facility] Work Phone: 09-03-[address] [facility] Work Phone: 07-20-2024 [facility] Work Phone: 07-02-2024 Functional status Independent [facility] Work Phone: 09-08-2023 Functional Status Other: [facility] 09-08-2023 Functional Status Maintained [facility] 09-07-2023 Functional Status [facility] 09-26-2014 Are you deaf, or do you have serious difficulty hearing No 09/26/2014 8:15 AM Pooja Goins RN No [facility] 09-26-2014 Are you blind, or do you have serious difficulty seeing, even when wearing glasses No 09/26/2014 8:15 AM Pooja Goins RN No [facility] 09-26-2014 Do you have serious difficulty walking or climbing stairs No 09/26/2014 8:15 AM Pooja Goins RN No [facility] 09-26-2014 Do you have difficul ty dressing or bathing No 09/26/2014 8:15 AM Pooja Goins RN No [facility] 09-26-2014 Because of a physica l, mental, or emotional condition, do you have difficulty doing errands alone such as visiting a physician's office or shopping No 09/26/2014 8:15 AM Pooja Goins RN No [facility] Mental Status Date Assessment Result Facility 01-29-2025 Cognitive function Appropriate;[facility] Work Phone: 01-29-2025 Cognitive function Voice/Name [facility] Work Phone: 11-28-2024 Because of a physica l, mental, or emotional condition, do you have serious difficulty concentrating, remembering, or making decisions Yes 11/28/2024 11:21 AM Danilo Rankin, ISABEL Yes [facility] 11-22-2024 Cognitive function Voice/Name [facility] Work Phone: 09-04-2024 Cognitive function Voice/Name [facility] Work Phone: 07-20-2024 Cognitive function Voice/Name [facility] Work Phone: 07-07-2024 Cognitive function Voice/Name [facility] Work Phone: 07-03-2024 Cognitive function Follows Commands;Drows y [facility] Work Phone: 07-02-2024 Cognitive function Appropriate;[facility] Work Phone: 06-06-2024 Cognitive function Drowsy [facility] Work Phone: 06-06-2024 Cognitive function Voice/Name [facility] Work Phone: 09-08-2023 Mental Status [facility] 09-26-2014 Because of a physica l, mental, or emotional condition, do you have serious difficulty concentrating, remembering, or making decisions No 09/26/2014 8:15 AM Pooja Goins, ISABEL No [facility] Clinical Notes 12-19-2015 to 02-15-2025 Note Date & Type Note Facility 02-15-2025 Radiology Diagnostic study note [facility] 01-29-2025 Discharge summary Note Date/Time January 29, 2025 12:08pm [facility] Medical Records Department [address] [place] [address] Discharge Summary 01/29/25 1003 MR#: [id number] Acct: [id number] Name: PERLA THOMPSON Rep #:[id number] : 1935 89 From: Jaswant pablo MD PCP: Dr. Nando Wiggins MD Status:A DM IN Location: [facility] BA034-3 Providers Date of Admission: 01/25/25 Primary Care [...] (Adult Aspirin Regimen) 81 mg PO DAILY [facility] 07/01/20 Held on 01/29/25. Instructions: Resume [...] with preserved ejection fraction who presented to [facility] ED 01/25/2025 due to a fall. Reportedly [...] (Auto) 68.9, Lymph % (Auto) 13.6 L, [place] % (Auto) 13.7 H, Eos % (Auto) [...] in before D/C Order can be placed): [facility] Facility Charges/Coding Visit Charges Inpatient E&M: 61797 Disch Hosp >30min 01/29/25 1208 <Electronically signed by Jaswant Montgomery MD> Cosigner Signature (if applicable): CC: Dr. Nando Wiggins MD; Dr. Jaswant Montgomery MD~ Signed [facility] Work Phone: 1(756) 653-866909-09-2025 Discharge summary Author Jaswant Montgomery [facility] Note Date/Time January 29, 2025 10:02am [facility] Medical Records Department [address] [place] [address] Transfer to Extended Care MR#: [id number] Acct: [id number] Name: PERLA THOMPSON Rep #:[id number] : 1935 89 From: Jaswant pablo MD PCP: Dr. Nando Wiggins MD Status:A DM IN Certification of patient admission REQUIRED AT TIME OF ADMISSION. I CERTIFY THAT POST-HOSPITAL ECF SERVICES ARE REQUIRED TO BE GIVEN ON AN IN-PATIENT BASIS BECAUSE OF THE ABOVE NAMED PATIENT'S NEED FOR CHCF CARE ON A CONTINUING BASIS FOR THE [...] in before D/C Order can be placed): [facility] Facility 01/29/25 1002 <Electronically signed by Jaswant Montgomery MD> Cosigner Signature (if applicable): CC: Dr. Nando Wiggins MD; Dr. Manuel Alva MD; Dr. Kimberly Orozco MD; Dr. Jayla Osuna MD; Dr. Hakan Gunter MD ~ [facility] Work Phone: 1(708) 893-213509-09-2025 [facility]09-08-2025 Progress note Author Jaswant Montgomery [facility] Note Date/Time January 28, 2025 10:49am [facility] Medical Records Department [address] [place] [address] Progress Note - Hospitalist 01/28/25 1045 MR#: [id number] Acct: [id number] Name: PERLA THOMPSON Rep #:[id number] : 1935 89 From: Jaswant pablo MD PCP: Dr. Nando Wiggins MD Status:A DM IN Location: MS3 UY921-2 Subjective Subjective Doing well, denies any pain. [...] (Auto) 69.4, Lymph % (Auto) 14.0 L, [place] % (Auto) 13.3 H, Eos % (Auto) [...] DVT: Eliquis Charges/Coding Visit Charges Inpatient E&M: 71426 Subs Hosp L2 01/28/25 1049 <Electronically signed by Jaswant Montgomery MD> Cosigner Signature (if applicable): CC: ~ Signed [facility] Work Phone: 1(385) 720-381809-07-2025 Progress note Author Kimberly Orozco [facility] Note Date/Time January 27, 2025 3:23pm [facility] Medical Records Department [address] [place] [id number] Progress Note 01/27/25 1210 MR#: [id number] Acct: [id number] Name: PERLA THOMPSON Rep #:[id number] : 1935 89 From: Kimberly Orozco MD PCP: Dr. Nando Wiggins MD Status:A DM IN Location: MS3 GI352-5 Subjective Subjective Patient seen and examined. Is [...] 81.2 H, Lymph % (Auto) 7.9 L, [place] % (Auto) 9.5, Eos % (Auto) 0.3, [...] right proximal femur. Correlation with routine full mjbaf-wr-kjiz radiographs as clinically appropriate for more complete assessment. Reading Location: [facility] Physical Exam Const alert, oriented x3 and [...] SCDs.resume eliquis Charges/Coding Visit Charges Inpatient E&M: 86106 Subs Hosp L2 01/27/25 1523 <Electronically signed by Kimberly Orozco MD> Kimberly Orozco MD Cosigner Signature (if applicable): CC: ~ Signed [facility] Work Phone: 1(476) 502-739609-07-2025 Progress note Author Hakan Gunter [facility] Note Date/Time January 27, 2025 11:27[facility] Medical Records Department [address] [place] [address] Progress Note - Orthopedic 01/27/25 1126 MR#: [id number] Acct: [id number] Name: PERLA THOMPSON Breanne Rep #:[id number] : 1935 89 From: Hakan Gunter MD PCP: Dr. Nando Wiggins MD Status:A DM IN Location: [place] [address]-1 Subjective Subjective POD 1 doing well. mild [...] 81.2 H, Lymph % (Auto) 7.9 L, [place] % (Auto) 9.5, Eos % (Auto) 0.3, [...] right proximal femur. Correlation with routine full [id number]-ij-[id number] radiographs as clinically appropriate for more complete assessment. Reading Location: [facility] Physical Exam Const alert, no apparent distress [...] Cosigner Signature (if applicable): CC: ~ Signed [facility] Work Phone: 1(539) 220-472309-07-[address] [facility] Note Date/Time January 27, 2025 6:42am [facility] Medical Records Department [address] [place] [address] Progress Note - Hospitalist 01/27/25 0641 MR#: [id number] Acct: [id number] Name: PERLA THOMPSON Rep #:[id number] : 1935 89 From: Nazanin Noyola MD PCP: Dr. Nando Wiggins MD Status:A DM IN Location: [place] [address] Hospitalist Note Patient with decreased UOP, will administer low cc/hr volume bolus and reassess. 01/27/25 0642 <Electronically signed by Nazanin Noyola MD> Cosigner Signature (if applicable): CC: ~ Signed [facility] Work Phone: 1(350) 615-730409-06-2025 Consult note Author [facility] Note Date/Time January 26, 2025 4:47pm [facility] Medical Records Department [address] [place] [address] Anesthesia Postop Eval II 01/26/25 1647 MR#: [id number] Acct: [id number] Name: PERLA THOMPSON Rep #:[id number] : 1935 89 From: Itz Mahan MD PCP: Dr. Nando Wiggins MD Status:A DM IN Y Race: C Location: [place] [address] - Anesthesia Postop Eval I Sum Postop [...] MD Cosigner Signature: Date CC: ~ Signed [facility] Work Phone: 1(103) 553-142009-06-2025 Consult note Author [facility] Note Date/Time January 26, 2025 4:46pm [facility] Medical Records Department [address] [place] [address] Anesthesia Postop Eval I 01/26/25 1645 MR#: [id number] Acct: [id number] Name: PERLA THOMPSON Breanne Rep #:[id number] : 1935 89 From: Itz Mahan MD PCP: Dr. Nando Wiggins MD Status:A DM IN Y Race: C Location: [place] [address] Anesthesia: Postop Eval I Current Vital Signs [...] MD Cosigner Signature: Date CC: ~ Signed [facility] Work Phone: 1(434) 663-870109-06-2025 Progress note Author Kimberly [facility] Note Date/Time January 26, 2025 3:56pm [facility] Medical Records Department [address] [place] [address] Progress Note 01/26/25 1103 MR#: [id number] Acct: [id number] Name: PERLA THOMPSON Rep #:[id number] : 1935 89 From: Kimberly Orozco MD PCP: Dr. Nando Wiggins MD Status:A DM IN Location: [place] [address] Subjective Subjective Patient seen and examined with [...] (Auto) 68.9, Lymph % (Auto) 18.0 L, [place] % (Auto) 9.6, Eos % (Auto) 2.4, [...] 71.1 H, Lymph % (Auto) 15.9 L, [place] % (Auto) 10.8 H, Eos % (Auto) [...] Comminuted impacted right intertrochanteric fracture. Reading Location: [facility] Chest X-Ray 01/25/25 15:57 IMPRESSION: Low lung volumes. Congestion. Reading Location: [facility] Knee X-Ray 01/25/25 18:05 IMPRESSION: Surgical changes [...] orthopedic surgery. Charges/Coding Visit Charges Inpatient E&M: 05381 Subs Hosp L2 01/26/25 1556 <Electronically signed by Kimberly Orozco MD> Kimberly Orozco MD Cosigner Signature (if applicable): CC: ~ Signed [facility] Work Phone: 1(740) 372-693909-06-2025 Radiology Diagnostic study [facility]09-06-2025 Procedure [facility]09-06-2025 Consult note Author Itz Mahan [facility] Note Date/Time January 26, 2025 8:47am [facility] Medical Records Department [address] [place] [address] Pre-Anesthesia Evaluation 01/26/25 0846 MR#: [id number] Acct: [id number] Name: PERLA THOMPSON Breanne Rep #:[id number] : 1935 89 From: Itz Mahan MD PCP: Dr. Nando Wiggins MD Status:A DM IN Y Race: C Location: [place] [address] ASA Classification* ASA Classification ASA Classification: 4 [...] Hip Fracture Anesthesia History Anesthesia History - wind technician: Anesthesia History - wind technician Hx Hospitalization Yes 09/24/24 11:04 Any Problems [...] take am of surgery PONV PONV - wind technician: PONV - wind technician Female HX of Motion Sickness HX of N/V After Surgery Non-Smoker Duration of Surgery greater than 60 minutes Number of Risk Factors PONV Score Height & Weight Height & Weight: Anesthesia: Height & Weight Height 5 ft 10 in 01/25/25 18:57 Weight: 98.6 kg 01/26/25 06:30 Body Mass Index (BMI) 31.1 01/26/25 06:30 Respiratory Assessment Respiratory Assessment - wind technician: Respiratory Tract Infection Hx - wind technician Hx Respiratory Tract Infection No 01/25/25 20:21 STOP Sleep Apnea STOP Sleep Apnea - wind technician: STOP Sleep Apnea - wind technician Hx Hypertension No 01/25/25 18:43 Hx Sleep [...] Tobacco Use History Tobacco Use History - wind technician: Tobacco Use History - wind technician Tobacco Use Non-smoker 09/26/20 11:23 Smoking Status Never smoker 01/25/25 18:43 Hx Tobacco Use No 01/25/25 18:43 Years Smoking Packs Smoked per Day Smoking Cessation Date was within the last 15 years Hx Smoking Cessation Date Hx Smoking Cessation Counseling Hematologic Medial History Hematologic Hx - wind technician: Hematologic Medical 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 Hx of Blood Transfusion Yes 01/25/25 18:43 [...] confused, unrespo /Reproduction History /Reproductive History - wind technician: /Reproductive Hx- wind technician Hx Now No 01/25/25 20:21 Gestational Age [...] mls @ 15 mls/hr 01/25/25 19:36 IV .[id number] PRN Saline Flush Sodium Chloride 250 mls @ 15 mls/hr 01/25/25 19:36 IV .[id number] PRN Additional IVPB Infusion Insulin Human Lispro 0 unit 01/25/25 22:00 01/26/25 06:32 Insulin Lispro 100 Unit/Ml Insuln.Pen SC Not Given ACHS [facility] Protocol Melatonin 10 mg 01/25/25 18:49 Melatonin [...] 10:00 Torsemide 100 Mg Tablet PO MoWeFr@1000 [facility] Medical History Closed right hip fracture 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 Wound, open, foot End stage renal disease MRSA (methicillin resistant staph aureus) culture positive Cutaneous abscess of right foot Diabetic infection of right foot Acute hyperkalemia Open wound Lives in [facility] Dietary restriction History of stress test History of echocardiogram Cardiology follow-up encounter History of atrial fibrillation Insulin dependent diabetes mellitus Other specified peripheral vascular diseases 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 Nando Wiggins MD Status:A DM IN [facility] History of Present Illness Chief Complaint: Lower Extremity Injury Narrative Narrative: 89-year-old male past medical history of diabetes, right BKA remotely, presents from jail facility status post fall. History and physical [...] no other symptoms. See fentanyl per squad. 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 Reading Location: [facility] Chest X-Ray 01/25/25 15:57 IMPRESSION: Low lung volumes. Congestion. Reading Location: [facility] Management Discussion w/another healthcare provider: Hospitalist (Dr. Osuna) and Associate Professor Of Management (Dr. Gunter) Discharge Plan Dx/Rx/DC Orders Clinical Impression: Fall, Closed hip fracture, Current use of correction anticoagulation, End stage renal disease Disposition Disposition: Acute Care Hospital [facility] Discharge Date/Time: 01/25/25 18:37 What to do if you have Problems For any increased pain, shortness of breath, bleeding, nausea or vomiting, chestpain, or any unexpected problems, contact your Primary Care Provider. Call [facility] ([phone]) or report to the closest Emergency Room. Call 911 if necessary. 01/25/252133 <Electronically signed by Beau Dunlap MD> Cosigner Signature (if applicable): CC: Dr. Nando Wiggins MD ~ Signed [facility] Work Phone: 1(330) 601-281309-05-2025 History and physical note Author Jayla Osuna [facility] Note Date/Time January 25, 2025 7:58pm [facility] Medical Records Department [address] [place] [address] H&P Exam - Hospitalist 01/25/25 1756 MR#: [id number] Acct: [id number] Name: PERLA THOMPSON Rep #:[id number] : 1935 89 From: Jayla Osuna MD PCP: Dr. Nando Wiggins MD Status:A DM IN Location: [facility] ZG423-8 HPI - General General Date of Admission: 01/25/25 Date of Service: 01/25/25 Chief Complaint: Right leg pain HPI Narrative PERLA THOMPSON, is a 89-year-old male history of type 2 diabetes, right BKA, end- stage renal disease on hemodialysis, diabetes, PAD, history chronic heart failure with preserved ejection fraction who presented [facility] ED 01/25/2025 due to a fall. Reportedly [...] is dry and wants something to drink. 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 Reading Location: [facility] Chest X-Ray 01/25/25 15:57 IMPRESSION: Low lung volumes. Congestion. Reading Location: [facility] Assessment & Plan Assessment/Plan (1) Closed right [...] Osuna MD Charges/Coding Visit Charges Inpatient E&M: 35358 Init Hosp L2 01/25/251957 <Electronically signed by Jayla Osuna MD> Cosigner Signature (if applicable): CC: Dr. Nando Wiggins MD; Dr. Jayla Osuna MD~ Signed [facility] Work Phone: 1(937) 317-950909-05-2025 Consult note Author Hakan Gunter [facility] Note Date/Time January 25, 2025 6:10pm [facility] Medical Records Department [address] [place] [address] Consultation - Orthopedics 01/25/251804 MR#: [id number] Acct: [id number] Name: PERLA THOMPSON Rep #:[id number] : 1935 89 From: Hakan Gunter MD PCP: Dr. Nando Wiggins MD Status:A DM IN Location: [facility] RO840-1 HPI Consult Data Date of Consult: 01/25/25 HPI Narrative HPI Narrative: PERLA THOMPSON, is a 89 M who presents with a right hip fracture. Fell out of a chair in [facility]. does not ambulate for months now. uses a radha lift. his son and daughter are here at the bed side. on dialysis. has right below knee amp. 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 Wound, open, foot End stage renal disease MRSA (methicillin resistant staph aureus) culture positive Cutaneous abscess of right foot Diabetic infection of right foot Acute hyperkalemia Open wound Lives in [facility] Dietary restriction History of stress test History of echocardiogram Cardiology follow-up encounter History of atrial fibrillation Insulin dependent diabetes mellitus Other specified peripheral vascular diseases 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 Reading Location: [facility] Chest X-Ray 01/25/25 15:57 IMPRESSION: Low lung volumes. Congestion. Reading Location: [facility] 2 part IT hip fracture. bones consistent [...] the surgery. For now MEGAN, NPO at [facility] in hopes of doing the procedure tomorrow. 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 Pros and cons risks [...] applicable): CC: Dr. Nando Wiggins MD~ Signed [facility] Work Phone: 1(549) 508-931909-05-2025 Consult note Author Hakan Gunter [facility] Note Date/Time January 25, 2025 4:46pm [facility] Medical Records Department [address] [place] [address] Consultation - Orthopedics 01/25/25 1644 MR#: [id number] Acct: [id number] Name: PERLA THOMPSON Rep #:[id number] : 1935 89 From: Hakan Gunter MD PCP: Dr. Nando Wiggins MD Status:R EG ER Location: ED HPI Consult Data Date of Consult: 01/25/25 HPI Narrative HPI Narrative: PERLA THOMPSON is a 89 M who presents with a right hip fracture, in the setting ofa prior below knee amp on that side. 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 Wound, open, foot End stage renal disease MRSA (methicillin resistant staph aureus) culture positive Cutaneous abscess of right foot Diabetic infection of right foot Acute hyperkalemia Open wound Lives in [facility] Dietary restriction History of stress test History of echocardiogram Cardiology follow-up encounter History of atrial fibrillation Insulin dependent diabetes mellitus Other specified peripheral vascular diseases 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 Reading Location: [facility] Chest X-Ray 01/25/25 15:57 IMPRESSION: Low lung volumes. Congestion. Reading Location: [facility] Assessment & Plan Assessment/Plan (1) Closed right [...] applicable): CC: Dr. Nando Wiggins MD~ Signed [facility] Work Phone: 1(684) 975-452409-05-2025 Radiology Diagnostic study [facility]09-05-2025 Radiology Diagnostic study [facility]09-05-2025 Radiology Diagnostic study [facility] 12-26-2024 [facility] Evaluation note * Diagnosis Onset Date [...] January 25, 2025 5:56pm Current use of correction anticoagulation acute January 25, 2 025 5:56pm End stage renal disease acute S eptemb2024 5:56pm Fall acute January 25, 2025 5:56pm Anemia of chronic disease chronic January 25, 2025 5:56pm Closed hip fracture acute Septe [facility] 2024 9:54am [facility] Work Phone: 1(407) 877-205707-22-2025 Telephone encounter Note* Telephone Encounter - Ray [...] Dept Phone 01/08/2025 10:30 AM DEVICE CLINIC [facility] [phone] Any scheduling issues:Yes, Spoke with patients daughter she stated if her dad could follow up locally she would call and cancel appointment with [facility]. Questions moving forward: No FATUMA WorrellOLOGIST [facility]07-22-2025 Miscellaneous Notes* Telephone Encounter - Ray Eagle [...] Location Dept Phone 01/08/2025 10:30 AM DEVICE [facility] [phone] Any scheduling issues:Yes, Spoke with patients daughter she stated if her dad could follow up locally she would call and cancel appointment with [facility]. Questions moving forward: No FATUMA WorrellOLOGIST [facility]2025 Note [facility] 11-24-[facility]-2025 Radiology Diagnostic study [facility]06-20-2025 Discharge summary Author Max Roberts [facility] Note Date/Time November 08, 2024 11:3 9pm [facility] Medical Records Department [address] [facility] [place] [address] Emergency Department Summary 11/08/24 MR#: [id number] Acct: [id number] Name: PERLA THOMPSON Rep #:[id number] : 1935 89 From: Max Ayers PCP: Dr. Nando Wiggins MD Status:R EG ER Location: ED HPI <KRISTOFER Taylor - Last Filed: 11/08/24 22:12> HPI - Fall History of Present Illness Chief Complaint: Fall Narrative Narrative: 89-year-old male with PMH of DM2, ESRD on HD, A-fib on Eliquis, right BKA presents after a fall at his [facility]. 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 Wound, open, foot End stage renal disease MRSA (methicillin resistant staph aureus) culture positive Cutaneous abscess of right foot Diabetic infection of right foot Acute hyperkalemia Open wound Lives in [facility] Dietary restriction History of stress test History of echocardiogram Cardiology follow-up encounter History of atrial fibrillation Insulin dependent diabetes mellitus Other specified peripheral vascular diseases 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 Reading Location: [place] [address] Foot X-Ray 11/08/24 21:20 IMPRESSION: No acute fracture is appreciated. Other abnormalities as detailed above. Reading Location: [facility] ED attending interpretation of left foot shows no acute fracture or dislocation. <Dr. Max Roberts DO - Last Filed: 11/08/24 23:39> [facility] Radiography Diagnostic Testing: Clinical Impression(s) from Imaging Studies Brain CT 11/08/24 19:51 IMPRESSION: No acute intracranial abnormalities. Reading Location: [place] [address] Foot X-Ray 11/08/24 21:20 IMPRESSION: No acute fracture is appreciated. Other abnormalities as detailed above. Reading Location: [facility] Treatment and Re-Evaluation Narrative: Attending note: I have personally performed a face to face assessment of the patient and have reviewed the ARAMIS note. I personally made/approved the management plan and take responsibility for the patient management. I performeda substantive portion of the visit including all aspects of the following. My figueroa findings include: Sent from jail facility fall out of his recliner. Normally [...] 100 unit/mL Insulin Pen See Protocol subcut [facility] Protocol: 3. Sliding Scale Insulin Med [...] please return to the ER. Print Language: German Disposition Disposition: Home, Self Care What to do if you have Problems For any increased pain, shortness of breath, bleeding, nausea or vomiting, chestpain, or any unexpected problems, contact your Primary Care Provider. Call [facility] ([phone]) or report to the closest Emergency Room. Call 911 if necessary. 11/08/24 2694 <Electronically signed by Max Ayers> Cosigner Signature (if applicable): 06/2211 <Electronically signed by Xena MINER> CC: Dr. 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 acute January 25 025 5:56pm End stage renal disease acute S epte2024 5:56pm Fall acute January 25, 2025 5:56pm [facility] Work Phone: 1(714) 504-256405-14-2025 Evaluation note* Diagnosis Onset Date Resolution Status [...] January 25, 2025 5:56pm Current use of correction anticoagulation acute January 25 5:56pm End stage renal disease acute S eptember 2024 5:56pm Fall acute January 25, 2025 5:56pm Anemia of chronic disease chronic January 25, 2025 5:56pm [facility] Work Phone: 1(158) 699-141405-05-2025 Progress note Author Randal Damico [facility] Note Date/Time September 24, 2024 11:03a [facility] Medical Records Department [address] [place] [address] Progress Note - Surgery 09/24/24 1101 MR#: [id number] Acct: [id number] Name: PERLA THOMPSON Rep #:[id number] : 1935 89 From: Randal Damico MD [...] encounter PLAN: Continue ABD for padding Continue Mold Presser splint for knee extension and plan for stump forming with [employer] eventual prosthesis at likely 3 months Plan from vascular is to follow-up in 2 weeks for staple removal. Agree with plan. Patient is not having any residual limb pain or phantom limb pain. Follow-up asneeded. Charges/Coding Procedures Integumentary 111xxx-113xx: 04980 Global Visit 09/24/24 1103 <Electronically signed by Randal Damico MD> Cosigner Signature (if applicable): CC: ~ Signed [facility] Work Phone: 1(737) 902-595505-05-2025 Evaluation note* Diagnosis Onset Date Resolution Status [...] Sinus bradycardia chronic December 26, 2024 9:34am [facility] Work Phone: 1(105) 472-562904-11-2025 [facility]04-09-2025 Evaluation note* Diagnosis Onset Date Resolution Status Admit Date Amputation of right lower extremity below knee acute August 29, 2024 1:06pm End stage renal disease acute A pril 2024 1:06pm Anemia of chronic disease chronic August 29, 2024 1:06pm 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 inactive [...] Sinus bradycardia chronic December 26, 2024 9:34am [facility] Work Phone: 1(786) 752-225204-09-2025 [facility]03-31-2025 Evaluation note* Diagnosis Onset Date Resolution Status [...] chronic August 29, 2024 1:06pm 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 inactive [...] 2024 9:45am Sinus bradycardia chronic October 9:45am [facility] Work Phone: 1(141) 361-397402-28-2025 [facility]02-21-2025 Evaluation note* Diagnosis Onset Date Resolution Status [...] chronic August 29, 2024 1:06pm 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 msg sent to pcp to make him aware that he is in a mcc Reason for Outreach Care Gap/HCC or Scheduling [...] 11, 2024 2:35 PM documented in this encounterReg[facility] Telephone encounter Note* Telephone Encounter - [...] SAUL Roach July 09, 2024 11:51 AM [facility]02-17-2025 Miscellaneous Notes* Telephone Encounter - Radha Howe [...] 09, 2024 11:51 AM documented in this encounterRegency Hospital [facility]02-10-2025 [facility]-10-2025 Evaluation note* Diagnosis Onset Date Resolution Status [...] chronic August 29, 2024 1:06pm 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 inactive [...] AV fistula acute October 17, 2024 10:05am [facility] Work Phone: 1(840) 675-526101-29-2025 Evaluation note* Diagnosis Onset Date Resolution Status [...] chronic August 29, 2024 1:06pm 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 inactive [...] AV fistula acute October 17, 2024 10:05am [facility] Work Phone: 1(860) 435-972001-20-2025 [facility] History of Present illness Narrative* Danilo [...] 11, 2024 1:49 PM documented in this encounterRegency [facility]01-15-2025 Evaluation note* Diagnosis Onset Date Resolution Status [...] chronic August 29, 2024 1:06pm 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 inactive August 29, 2024 1:06pm Wound, open, foot inactive August 292024 1:06pm Amputation of right lower extremity below knee acute September 24 9:58am [facility] Work Phone: 1(903) 257-549401-15-2025 Evaluation note* Diagnosis Onset Date Resolution Status [...] chronic August 29, 2024 1:06pm 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 If they do we can open a new TE. [facility]01-14-2025 Miscellaneous Notes* Telephone Encounter - Catalina Ruth [...] to clear him. If he is inthe mcc with Dr. Wiggisn, they should have access to his labs [...] that Cardiology Dr. Yunior Tong from the [facility] has signed off on medical [...] If he is a resident at the mcc, it would be most convenient for the patient to have Dr. Wiggins do his pre op there. If they are unable or unwilling, he would need OV with us before I could clear him. * Telephone Encounter - Alanna Veloz LPN - 05/30/2024 10:55 AM EST Phoned patients son, Jey back to advise if patient is at [facility] and on a skilled unit under Dr Wiggins's care we recommend she fill the clearance form out. Jey explained that Dr Wiggins rounds on Tuesdays when patient is at the wound clinic for his weekly debridments. Explained to son that wetypically need to obtain labs and EKG and patient would need to be seen in office. 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 Please advise. Alanna Veloz LPN * Telephone Encounter - Catalina Ruth RN - 05/30/2024 10:35 AM EST Jey Pts son in law called in and reports Pt is now in a jail facility. He states [facility] his big toe and the ball of his foot in April at the ER. He states they want to remove the rest of the toes as soon as they can, but they don't want to have to do it in the ER. He states that surgical garment fitter for this provider is going to be sending over a surgical release for for the providers office to sign. Pt was last seen by Lauren Podlogar [employer]ER [employer]ER on 03/28/24, he had an A1C and CMP done. I don't know if Pt would been to come in and be seen again before forms could be signed. Forms are going to be sent to office Attn: Alanna and Deborah. Please call and advise if anything else will need to be done. documented in this encounterRegency [facility]01-09-2025 Telephone encounter Note * Telephone Encounter - [...] triage nurse the ok/information. Alanna Veloz LPN [facility]01-09-2025 Telephone encounter Note* Telephone Encounter - Husam Yan MD - 05/31/2024 12:42 PM EST He will still need physical exam and possibly labs before I would be able to clear him. If he is inthe mcc with Dr. Wiggins, they should have access to his labs and might be easier for them to see and clear him. If unable or unwilling, I would need to see him in our office. [facility]01-09-2025 Telephone encounter Note* Telephone Encounter - Mary Hodges LPN - 05/31/2024 11:41 AM EST Son dropped off copies of POA and Living Will forms at this time. Mary Hodges LPN [facility]01-08-2025 Telephone encounter Note* Telephone Encounter - Deborah Bedoya LPN - 05/30/2024 4:52 PM EST Son in law calling in to advise office that Cardiology Dr. Yunior Tong from the [facility] has signed off on medical [...] after PCP reviews paperwork. Deborah Bedoya LPN [facility]01-08-2025 Telephone encounter Note* Telephone Encounter - Deborah Bedoya LPN - 05/30/2024 1:51 PM EST Telephone call placed to patients son in law Jey. Made aware patient would need to be seen in office or could utilize nursing homes Dr. Mauricio understanding. Deborah Bedoya LPN [facility]01-08-2025 Telephone encounter Note* Telephone Encounter - Husam Yan MD - 05/30/2024 11:13 AM EST If he is a resident at the mcc, it would be most convenient for the patient to have Dr. Wiggins do his pre op there. If they are unable or unwilling, he would need OV with us before I could clear him. [facility]01-08-2025 Telephone encounter Note* Telephone Encounter - Alanna Veloz LPN - 05/30/2024 10:55 AM EST Phoned patients sonJey back to advise if patient is at [facility] and on a skilled unit [...] in office. 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 Please advise. Alanna Veloz LPN [facility]01-08-2025 Telephone encounter Note* Telephone Encounter - Catalina Ruth RN - 05/30/2024 10:35 AM EST Jey Pts son in law called in and reports Pt is now in a jail facility. He states Dr [facility] Ruelas [facility] took his big toe and the ball of his foot in April at the ER. He states they want to remove the rest of the toes as soon as they can, but they don't want to have to do it in the ER. He states that surgical garment fitter for this provider is going to be sending over a surgical release for for the providers office to sign. Pt was last seen by Lauren Podlogar [employer]ER on 03/28/24, he had an A1C and CMP done. I don't know if Pt would been to come in and be seen again before forms could be signed. Forms are going to be sent to office Attn: Marilia. Please call and advise if anything else will need to be done. [facility]-19[facility]12-13-2024 [facility]12-03-2024 [facility]12-02-2024 [facility] History of Present illness Narrative* Sridevi [...] 23, 2024 2:35 PM documented in this encounterRegency Hospital [facility]11-26-2024 Telephone encounter Note * Telephone Encounter - Maylea Hopson LPN - 04/17/2024 12:51 PM EST noted. [facility]11-26-2024 Miscellaneous Notes* Telephone Encounter - Mayela Hopson [...] below. She said her father is in [facility] with a fott infection right now. She will update you when she can. * Telephone Encounter - Lauren Arzola APRN.CNP - 04/16/2024 7:08 AM EST Update me Tuesday with readings. Lauren Arzola APRN.CNP * Telephone Encounter - Mayela Hopson LPN - 04/13/2024 2:47 PM EST Phoned daughter Radha and went over notes from Lauren Arzola [employer] with understanding. Radha said father would not [...] units daily. Please advise documented in this encounterRegency Hospital [facility]11-25-2024 Telephone encounter Note * Telephone Encounter - Lauren Arzola APRN.CNP - 04/16/2024 9:19 AM EST Okay. Possible why his sugars have bee elevated as well. Lauren Arzola APRN.CNP [facility]11-25-2024 Telephone encounter Note* Telephone Encounter - Mayela Hospon LPN - 04/16/2024 9:08 AM EST Phoned Radha and went over notes below. She said her father is in [facility] with a fott infection right now. She will update you when she can. [facility]11-25-2024 [facility]11-25-2024 Telephone encounter Note* Telephone Encounter - Lauren Arzola APRN.CNP - 04/16/2024 7:08 AM EST Update me Tuesday with readings. Lauren Arzola APRN.CNP [facility]11-23-2024 [facility] History of Present illness Narrative* Usman [...] distress and family will self transport to [facility] documented in this encounterRegency Hospital [facility]11-22-2024 Telephone encounter Note * Telephone Encounter - Mayela Hopson LPN - 04/13/2024 2:47 PM EST Phoned daughter Radha and went over notes from Lauren Arzola [employer] with understanding. Radha said father would not like to see pharmacist, she will try the increase in Lantus. [facility]11-22-2024 Telephone encounter Note* Telephone Encounter - Lauren Arzola APRN.LUZ - 04/13/2024 2:36 PM EST Increase Lantus to 37 units daily. Would he be willing to talk with our clinical pharmacist to helpwith managing his diabetic medications as it doesn't seem we are getting much better. Lauren Arzola APRN.CAR USHER [facility]11-22-2024 Telephone encounter Note* Telephone Encounter - Mayela Hopson LPN - 04/13/2024 2:31 PM EST Patient daughter Radha calling fathers blood sugar average is 306. She said he is not very active, his activity is going to dialysis 3 times a week. His Lantus is 33 units daily. Please advise [facility]-15-2024 Telephone encounter Note* Telephone Encounter - Deborah Bedoya LPN - 04/06/2024 8:18 AM EST Patients daughter Radha telephoned, she is medical POA and will be bringing in paperwork. Providers recommendations below given. Voices understanding. Deborah Bedoya LPN [facility]11-15-2024 Miscellaneous Notes* Telephone Encounter - Deborah Bedoya [...] EST Patient daughter Radha calling to give [employer] her father blood sugar average since increased [...] dates with separate readings. documented in this encounterRegency Hospital [facility]11-15-2024 Telephone encounter Note * Telephone Encounter - [...] sooner if getting lows. Lauren Arzola APRN.CNP [facility]11-14-2024 Telephone encounter Note* Telephone Encounter - Mayela Hopson LPN - 04/05/2024 11:15 AM EST Patient daughter Radha calling to give [employer] her father blood sugar average since increased [...] not give her dates with separate readings. [facility]11-06-2024 Instructions* Patient Instructions* Lauren Arzola APRN.CNP - 03/28/2024 1:09 PM EST Check blood sugars three times a day and as needed- update me in one week with readings, sooner if needed documented in this encounterRegency Hospital [facility]11-06-2024 [facility]11-[facility] History of Present illness Narrative* Lauren [...] changes, polyuria or polydipsia. Daughter concerned about naval police coxswain giving him a diuretic She reports he [...] Outpatient Medications Medication Sig flash glucose sensor (Parad[employer] Technology SolutionsSTYLE TORIBIO 2 SENSOR) kit 2 Each four times daily. insulin glargine (LANTUS SOLOSTAR U-100 INSULIN) 100 unit/mL (3 mL) Inject 25 Units subcutaneously once daily. flash glucose scanning reader (Parad[employer] Technology SolutionsSTYLE TORIBIO 14 DAY READER) 1 Units four times daily. blood sugar diagnostic (BLOOD GLUCOSE TEST) test strip Test blood sugar(s) 2 times daily. Dx: Type 2 DM -E11. Insulin: No blood sugar diagnostic (ACCU-CHEK LISA PLUS TEST STRP) test strip Test blood sugar(s) 2x daily. DxE11.65. Insulin: No. mecobalamin (B12 ACTIVE ORAL) Take 1 tablet by mouth once daily. Every other day Insulin [place], Disposable, (BD ULTRA-FINE SHAHEEN PEN NEEDLE) 32 [...] Units by mouth once daily. Blood-Glucose Meter [facility] Dispense 1 kit. Dx: E11.65 Aspirin 81 [...] daughter they need to discuss concerns with naval police coxswain, verbalizes understanding Lauren Arzola APRN.CNP Prescription instructions [...] Level: 4 - Moderate documented in this encounterRegency Hospital [facility]edo08-16-2024 History of Present illness Narrative* Lauren Arzola [...] week. Follows with Dr. Faria Follows with [facility] cardiology for hx of Mobitz [...] stage renal disease) on dialysis ([facility]) Comment: Josh, Thai, Sat No date: Glaucoma [...] Units subcutaneously once daily. flash glucose sensor (TOLTEC PHARMACEUTICALSYLE TORIBIO 2 SENSOR) kit 2 Each four times daily. semaglutide (OZEMPIC) 0.25 mg or 0.5 mg(2 mg/1.5 mL) pen Inject 0.5 mg subcutaneously one time a week. semaglutide (OZEMPIC) 0.25 mg or 0.5 mg(2 mg/1.5 mL) pen Inject 0.5 mg subcutaneously one time a week. flash glucose scanning reader (Par[employer] SolutionsSTYLE TORIBIO 14 DAY READER) 1 Units four times daily. blood sugar diagnostic (BLOOD GLUCOSE TEST) test strip Test blood sugar(s) 2 times daily. Dx: Type 2 DM -E11.65 Insulin: No blood sugar diagnostic (ACCU-CHEK LISA PLUS TEST STRP) test strip Test blood sugar(s) 2x daily. DxE11.65. Insulin: No. mecobalamin (B12 ACTIVE ORAL) Take 1 tablet by mouth once daily. Every other day Insulin [place], Disposable, (BD ULTRA-FINE SHAHEEN PEN NEEDLE) 32 [...] Units by mouth once daily. Blood-Glucose Meter [facility] Dispense 1 kit. Dx: E11.65 Aspirin 81 [...] long-term current use of insulin ([facility]) - ICD9: 250.50, 362.04, 362.07, V58.67, ICD10: E11.3213, Z79.4 (primary diagnosis) - due for A1c - continue Lantus - not able to tolerate Ozempic due to GI side effects - FREESTYLE TORIBIO 2 SENSOR KIT - COMPREHENSIVE METABOLIC PANEL - HEMOGLOBIN A1C - follow-up in 6 months sooner if needed 2. ESRD (end stage renal disease) on dialysis ([facility]) - ICD9: 585.6, V45.11, ICD10: N18.6, [...] Level: 4 - Moderate documented in this encounterRegency Hospital [facility]08-16-2024 [facility]07-25-2024 Telephone encounter Note* Telephone Encounter - Amboy Concepcion Hughes - 12/15/2023 4:28 PM EDT [...] Gamble[place] Saul December 15, 2023 4:29 PM [facility]07-25-2024 Miscellaneous Notes* Telephone Encounter - Amboy Concepcion Hughes - 12/15/2023 4:28 PM EDT [...] untilOctober. Please call francisco Almazan Concepcion Gambleing [facility] December 15, 2023 4:29 PM documented in this encounterRegency Hospital [facility]edo04-18-2024 Hospital Discharge instructions Patient Education 09/08/2023 14:39:24 [...] provider approves. General instructions Take or apply nhyf-uca-kklqmme and prescription medicines only as told by [...] your health care provider. Take or apply nren-wvf-vilkzzh and prescription medicines only as told by your health care provider. This includes any eye drops. This information is not intended to replace advice given to you by your health care provider. Make sure you discuss any questions you have with your health care provider. Document Released: 01/25/2012 Document Revised: 05/25/2019 Document Reviewed: 05/28/2019 [employer]istics Patient Education 2019 [employer]. Follow Up Care 09/06/2023 10:35:24 With:JEAN PIERRE ZIEGLER MD, [facility] Address: [facility] [address] Wilhelm [facility] [place] [address]- [phone] When: Unknown Comments:Follow-up as scheduled [facility] 04-18-2024 Summary of episode note Discharge Instructions Thank you for allowing [facility] to assist you with your healthcare needs. The following is importantdischarge information regarding your hospital visit. What to do next Follow Up Appointments Follow Up with JEAN PIERRE ZIEGLER MD, [facility] When Why: Follow-up as scheduled Where: [facility] Felipe HANDLEY [facility] [place] [address]- [phone] The Following Activity and Diet Have Been [...] provider approves. General instructions Take or apply ecup-vdy-fzftrci and prescription medicines only as told by [...] your health care provider. Take or apply rfbf-wko-qjsaqth and prescription medicines only as told by your health care provider. This includes any eye drops. This information is not intended to replace advice given to you by your health care provider. Make sure you discuss any questions you have with your health care provider. Document Released: 01/25/2012 Document Revised: 05/25/2019 Document Reviewed: 05/28/2019 Elsevier Patient Education 2019 My[employer] Inc. Additional Information VACCINATE! IT SAVES LIVES! Members of the community who have not yet received the COVID-19 vaccine and would like to receive it can visit one of [facility] vaccine clinics. There are many vaccine clinic locations within the [facility]. For locations and available times, please visit [email or web address] It is important to note that some COVID mobile vaccine clinics are held outdoors and may be canceled in rainy or stormy conditions. To learn more about pediatric vaccinations (ages 5-11), we invite you to visit the [facility] webpage. https://www.[employer] Electronicss.org/pages/2607-Igumc-Svlwwqvtaeb-Gyotrbctwl-Dmqac-Joq stions.htmlTo learn more about the COVID-19 vaccine, we invite you to visit the CDC website for a list of frequently asked questions.https://www.cdc.gov/coronavirus/2019-ncov/vaccines/faq.html [email or web address] Patient Portal Access Instructions: Stay connected with your healthcare team and access your personal medical information anytime with the [email or web address] Patient Portal. Please follow the directions below to create your [email or web address] account: 1.Access the email account you provided upon registration to the hospital/physician office.2.Look for an invitation email from [facility].3.Open the email and access the invitation link: AcceptInvitation to [employer].4.Fill in the required meyers to create your account. To access your account, visit [email or web address]. Click the blue button labeled "Access Patient [...] your information. You can also access the [facility] Patient Portal on the [facility] aramis. Simply click on "Patient Portal" and then log into your account. If you would like to receive a full copy of your medical records, please contact the [facility] Medical Records Department by calling [phone], Tuesday through Tuesday between 8 a.m. and [...] Call your local pharmacy or go to [email or web address] to find one close to you.3.Make use of household items: Use cat litter or old coffee grounds to dispose medications if other options arenot available. Mix your drugs with these household products, seal them in an airtight container andthrow it into the garbage. Call [facility]: [phone] to be sure your drugs can be [...] that I should contact my do ctor. Patient/Casino Floorperson Signature: Date/Time: Relationship to Patient: Witness Name/Signature: Date/Time: [facility] [id number] Anesthesiology Consult note Patient: PERLA THOMPSON Age: [...] NIKKY AVENDANO MD on 09/08/2023 02:22 PM [facility] [id number] Anesthesiology Consult note Patient: PERLA THOMPSON Age: [...] mL/hr, Ophthalmic, PREOP pharm Documented Medications Documented [employer] Toribio 14 Day Sensor kit: CHANGE APPLIANCE [...] Cataract extraction and implantation of intraocular lens ([id number]) on 09/05/2023 at 88 Years. Comments: 09/07/2023 8:24 ISABEL Marte RIGHT EYE Angioplasty ([id number]) in 2021 at 87 Years. Comments: 09/07/2023 10:11 ISABEL Marte LEFT UPPER EXTREMITY FISTULOGRA IWTH CUTTING BALLON ANGIOPLASTY Repair of inguinal hernia ([id number]). Comments: 09/07/2023 8:23 ISABEL Marte UNSURE OF LATERALITY, HAD IN THE LATE 1960'S OR EARLY 1970S Extn - Extraction of tooth ([id number]). Comments: 09/07/2023 8:23 ISABEL Marte ALL TEETH REMOVED AV - Arteriovenous fistula ([id number]). Comments: 09/07/2023 10:06 ISABEL Marte LEFT ARM [...] 170.2 cm Admission Weight 98.7 kg [place] Body Weight 66.12 kg Type of Scale [...] Documentation reviewed: Current records. Assessment and Plan [place] Society of Anesthesiologists (ASA) physical status classification: Class III. Anesthetic Preoperative Plan Premedication: intravenous. Anesthetic technique: General. Induction: intravenously. Maintenance airway: Oral endotracheal tube, RSI. Postoperative pain management: Per surgeon. Risks discussed: nausea, vomiting, headache, sore throat, dental injury, hypotension, allergic reaction, serious complications. Informed consent: signed by patient. Digitally Signed by JERMAINE SWANSON MD on 09/08/2023 12:14 PM [facility] [id number] Miscellaneous Notes* Telephone Encounter - Alanna Veloz [...] an antibiotic. * Telephone Encounter - Alanna Velzo LPN - 09/06/2023 5:54 PM EDT Phoned [...] for a rx to be sent to [facility] please. Please advise documented in this encounterRegency Hospital [facility]03-18-2024 Miscellaneous Notes* Telephone Encounter - Deborah Bedoya [...] calling: self Call patient at: at home [phone] (home) [phone] (cell) Was an appointment scheduled: No Closing statement: Results or non-symptom based questions: Thank you for calling [facility], your call will be returned within the next business day. Demetra Hughes documented in this encounterRegency Hospital [facility]03-07-2024 Miscellaneous Notes* Telephone Encounter - Meredith Gonzalez [...] notify patient. Demetra Hughes documented in this encounterRegency Hospital [facility]02-21-2024 Miscellaneous Notes* Telephone Encounter - Valerie Burris LPN - 07/13/2023 8:14 AM EST Spoke to Radha, daughter and message given that short term prescription was sent to the pharmacy. Valerie Burris LPN * Telephone Encounter - Lauren Arzola APRN.CNP - 07/13/2023 6:58 AM EST New prescription sent to [facility] Lauren Arzola APRN.LUZ * Telephone Encounter - Heike Lainez - 07/12/2023 8:44 AM EST Patient's daughter, Radha, said a mail order rx for Ozempic was sent in yesterday for this patient. Said patient is completely out of medication. Wants to know if a short term refill can be sent to [facility] in [place]. Do not cancel mail order rx. * [...] Thank you. Heike Hughes. documented in this encounterRegency Hospital [facility]02-19-2024 Miscellaneous Notes* Telephone Encounter - Marina Huffman [...] visit in primary care: 09/23/2023 Patient using [facility] [employer] mail order please send new RX to mail order Per [facility] patient has no refills Please advise. Thank you. Marina Anguiano. documented in this encounterRegency Hospital [facility]edo02-05-2024 History of Present illness Narrative* Danilo Martines [...] Objective: [facility]: DP and PT pulses [...] long-term current use of insulin ([facility]) (primary encounter diagnosis) (B35.1) Onychomycosis (M79.672) [...] Care Patient presents for diabetic foot care. [facility]- 07/15/21. Patient tried cutting some of his toenails last week. Clipped 1st and 2nd toe. Swelling to bilateral legs, using zip up compression stockings. documented in this encounterRegency Hospital Toledo02-05-2024 Instructions* Patient Instructions* Danilo Martines - 06/27/2023 [...] (or decreased sensation in your feet) a diamond assorter should always cut your toenails. Be Careful [...] Go to your health care provider or diamond assorter to treat these conditions. documented in this encounterRegency Hospital Toledo10-24-2023 Miscellaneous Notes* Telephone Encounter - Mayela Hopson LPN - 03/15/2023 9:56 AM EDT [facility] from [facility] requesting copy of immunization record for flu shot information be faxed to [phone]. Printed and faxed as requested. documented in this encounterRegency Hospital Toledo10-17-2023 Miscellaneous Notes* Telephone Encounter - Mayela Hopson [...] patient's mail order pharmacy. Please send to [facility]. documented in this encounterRegency Hospital Toledo10-05-2023 Miscellaneous Notes* Telephone Encounter - Margret Linares LPN - 02/24/2023 1:12 PM EDT Called the pharmacy and this was billed through insurance and picked up in 02/22/23. * Telephone Encounter - Margret Linares LPN - 02/24/2023 1:09 PM EDT PERLA THOMPSON (Figueroa: [id number]) Rx #: [id number] Ozempic (0.25 or 0.5 MG/DOSE) 2MG/3ML pen-injectors Form [employer] Electronic PA Form Created 3 days ago Sent to Plan 20 hours ago Plan Response 20 hours ago Submit Clinical Questions 20 hours ago Determination Favorable 1 hour ago Message from Plan PA Case: [id number], Status: Approved, Coverage Starts on: 02/24/2023 12:15:13 PM, Coverage Ends on: 02/24/2023 12:15:13 PM. Questions? Contact . documented in this encounterRegency Hospital Toledo08-15-2023 Telephone encounter Note * Telephone Encounter - [...] week. Please review and advise. Magaly Bhakta [facility]08-15-2023 Miscellaneous Notes* Telephone Encounter - Magaly Bhakta [...] and advise. Magaly Bhakta documented in this encounterRegency Hospital Toledo07-17-2023 Instructions* Patient Instructions* Lauren Arzola APRN.CAR USHER - 12/06/2022 9:40 AM EDT WHAT YOU [...] review all the medicines you take, even aswa-qvp-ogvdtrn medicines. As you get older, the way [...] have certain medical conditions. documented [place] encounterHelen [place] [address]-17[place]2023 History of Present illness Narrative* Podlogar, LaurenELICIA.CAR USHER - 12/06/2022 9:09 AM EDT 12/06/2022 Patient [...] months CKD: Follows up with Dr. Khoury [facility]. Has dialysis three times a week. [...] 1 tablet by mouth once daily. Insulin [place], Disposable, (BD ULTRA-FINE SHAHEEN PEN NEEDLE) 32 [...] Units by mouth once daily. Blood-Glucose Meter [facility] Dispense 1 kit. Dx: E11.65 Aspirin 81 [...] which included preparing to see the patient, ddvo-st-hnwa patient care, completing clinical documentation, obtaining and/or reviewing separately obtained history, performing a medically appropriate examination, counseling and educating the pat ient/family/caregiver, and ordering medications, tests, or procedures. documented in this encounterRegency Hospital Toledo06-26-2023 Miscellaneous Notes* Telephone Encounter - Liza Johnson [...] of Last Labs: 09/06/2022 documented in this encounterRegency Hospital Toledo06-15-2023 Miscellaneous Notes* Telephone Encounter - SAUL Ruvalcaba - 11/04/2022 11:15 AM EDT Patient's daughter called back in, the test strips are called [employer], they would like these sent to [facility] in [place]. Please review. SAUL Ruvalcaba November 04, 2022 [...] testing strips to be sent to [facility] [place]. Please review and advise, Liza Johnson RN documented in this encounterRegency Hospital Toledo06-07-2023 Miscellaneous Notes* Telephone Encounter - Harper Fisher [...] and advise. Harper Fisher documented in this encounterRegency Hospital Toledo04-17-2023 History of Present illness Narrative* Lauren Arzola, GUITAR MAKER.CAR USHER - 09/06/2022 9:50 AM EDT 09/06/2022 Patient [...] dialysis CKD: Follows up with Dr. Khoury [facility]. Has dialysis three times a week. [...] sugar(s) 2x daily. DxE11.65. Insulin: No. Insulin [place], Disposable, (BD ULTRA-FINE SHAHEEN PEN NEEDLE) 32 [...] Units by mouth once daily. Blood-Glucose Meter [facility] Dispense 1 kit. Dx: E11.65 Aspirin 81 [...] long-term current use of insulin ([facility]) - ICD9: 250.50, 362.05, 362.07, ICD10: [...] stage renal disease) on dialysis ([facility]) - ICD9: 585.6, V45.11, ICD10: N18.6, [...] which included preparing to see the patient, wchy-gc-vdhi patient care, completing clinical documentation, obtaining and/or reviewing separately obtained history, performing a medically appropriate examination, counseling and educating the pat ient/family/caregiver, and ordering medications, tests, or procedures. documented in this encounterRegency Hospital Toledo03-30-2023 Miscellaneous Notes* Telephone Encounter - Aimee Nicole [...] Thank you. Aimee Nicole documented in this encounterRegency Hospital Toledo01-17-2023 Miscellaneous Notes* Telephone Encounter - Lauren Arzola APRN.CNP - 06/08/2022 10:10 AM EST Ozempic sent to mail order. Lauren Arzola APRN.LUZ * Telephone Encounter - Deborah Bedoya LPN - 06/08/2022 10:00 AM EST Patients daughter telephoned and notified of results and recommendations. Voices understanding. [facility] stated they wont have the ozempic until [...] will place referral order. documented in this encounterRegency Hospital Toledo01-16-2023 History of Present illness Narrative* Husam Yan [...] stage renal disease) on dialysis ([facility]) Tues, Thurs, Sat Glaucoma Dr Jimenez LBBB [...] sugar(s) 2x daily. DxE11.65. Insulin: No. Insulin [place], Disposable, (BD ULTRA-FINE SHAHEEN PEN NEEDLE) 32 [...] Units by mouth once daily. Blood-Glucose Meter [facility] Dispense 1 kit. Dx: E11.65 Aspirin 81 [...] long-term current use of insulin ([facility]) - ICD9: 250.50, 362.05, 362.07, ICD10: [...] diet. Husam Yan MD documented in this encounterRegency Hospital [facility]edo10-24-2022 Miscellaneous Notes* Telephone Encounter - Yamel Roe [...] new regimen. If agreeable, will call in engageSimply/Uppidy to his pharmacy. Kidney function in ESRD range. Continue with dialysis. Cholesterol looks good. documented in this encounterRegency Hospital Toledo10-14-2022 History of Present illness Narrative* Husam Yan [...] with dialysis 3 days per week at [facility] as directed. albumin was low on [...] sugar(s) 2x daily. DxE11.65. Insulin: No. Insulin [place], Disposable, (BD ULTRA-FINE SHAHEEN PEN NEEDLE) 32 [...] Units by mouth once daily. Blood-Glucose Meter [facility] Dispense 1 kit. Dx: E11.65 Aspirin 81 [...] long-term current use of insulin ([facility]) - ICD9: 250.50, 362.04, 362.07, ICD10: [...] vaccine - ICD9: V04.89, ICD10: Z23 - PFIZER-BIONTImpakt Protective COVID-19 BIVALENT BOOSTER VACCINE, AGE 12+ YR Husam Yan MD documented in this encounterRegency Hospital Toledo09-19-2022 Miscellaneous Notes* Telephone Encounter - Deborah Bedoya [...] Bernarda Pt was given a Generic from [facility]. Spoke with [facility] Pharmacist and Tresiba was [...] let daughter know [facility]. What insulin did they receive from [facility]. Thanks, Lauren Arzola APRN.CNP * Telephone Encounter - Concepcion Hughes - 02/08/2022 8:09 AM EDT Daughter Radha is calling and she stated she needs to know what is going on because this was supposed to arrive from [facility]. Then a prescription went to [facility] and they filled something but it [...] on the Glargine U100 to fax # [phone]. She is asking to have it faxed back to them. documented in this encounterRegency Hospital Toledo09-13-2022 Miscellaneous Notes* Telephone Encounter - Alanna Veloz [...] ORDER RX REQUESTED ON 01/26/2022 FOR HIS [facility],PLEASE FILL THIS SOON POSSIBLE Patient aware RX will be sent to pharmacy. No need to notify patient. Marina Anguiano documented in this encounterRegency Hospital Toledo09-06-2022 Miscellaneous Notes* Telephone Encounter - Harper García [...] advise. Harper García Pss documented in this encounterRegency Hospital [facility]edo07-25-2022 Miscellaneous Notes* Telephone Encounter - Amirah Bee [...] 02/2022 Last refill: 02/2021 documented in this encounterRegency Hospital Toledo05-06-2022 Miscellaneous Notes* Telephone Encounter - Husam Yan MD - 09/25/2021 12:56 PM EDT Reviewed. * Telephone Encounter - Breanne Carvalho RN - 09/25/2021 12:42 PM EDT Daughter, Radha, returned call from pcp office. Reports patient received call also, but he won't return calls. Given provider's message below with verbalized understanding. Reports she will try to get patient to see naval police coxswain, but doesn't think he will. Reports patient [...] week with his readings. 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 acute January 25, 025 5:56pm End stage renal disease acute S eptemb2024 5:56pm Fall acute January 25, 2025 5:56pm Anemia of chronic disease chronic January 25, 2025 5:56pm Closed hip fracture acute Septe mber 2024 9:54am [facility] Work Phone: [phone]) 856-200007-29-2016 History of Past illness Narrative* Problem Noted Date Resolved Date 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 12/19/2015 04/26/2016 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 02/28/2020 Noncompliance with diet and medication regimen 1 06/17/2012 11/18/2016 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 04/07/2013 11/18/2016 Leg edema 07/14/2009 02/28/2020 documented as of this encounter (statuses as of 10/07/2021) [facility] History of Past illness Narrative* Problem Noted Date Resolved Date 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 12/19/2015 04/26/2016 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 02/28/2020 Noncompliance with diet and medication regimen 1 06/17/2012 11/18/2016 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 04/07/2013 11/18/2016 Leg edema 07/14/2009 02/28/2020 documented as of this encounter (statuses as of 12/14/2021) [facility] History of Past illness Narrative* Problem Noted Date Resolved Date 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 12/19/2015 04/26/2016 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 02/28/2020 Noncompliance with diet and medication regimen 1 06/17/2012 11/18/2016 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 04/07/2013 11/18/2016 Leg edema 07/14/2009 02/28/2020 documented as of this encounter (statuses as of 02/02/2022) [facility] History of Past illness Narrative* Problem Noted Date Resolved Date 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 12/19/2015 04/26/2016 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 02/28/2020 Noncompliance with diet and medication regimen 1 06/17/2012 11/18/2016 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 04/07/2013 11/18/2016 Leg edema 07/14/2009 02/28/2020 documented as of this encounter (statuses as of 02/08/2022) [facility] History of Past illness Narrative* Problem Noted Date Resolved Date 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 12/19/2015 04/26/2016 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 02/28/2020 Noncompliance with diet and medication regimen 1 06/17/2012 11/18/2016 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 04/07/2013 11/18/2016 Leg edema 07/14/2009 02/28/2020 documented as of this encounter (statuses as of 02/19/2022) [facility] History of Past illness Narrative* Problem Noted Date Resolved Date 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 12/19/2015 04/26/2016 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 02/28/2020 Noncompliance with diet and medication regimen 1 06/17/2012 11/18/2016 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 04/07/2013 11/18/2016 Leg edema 07/14/2009 02/28/2020 documented as of this encounter (statuses as of 03/10/2022) [facility] History of Past illness Narrative* Problem Noted Date Resolved Date 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 12/19/2015 04/26/2016 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 02/28/2020 Noncompliance with diet and medication regimen 1 06/17/2012 11/18/2016 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 04/07/2013 11/18/2016 Leg edema 07/14/2009 02/28/2020 documented as of this encounter (statuses as of 03/15/2022) [facility] History of Past illness Narrative* Problem Noted [...] of this encounter (statuses as of 06/07/2022) [facility] History of Past illness Narrative* Problem Noted [...] of this encounter (statuses as of 06/08/2022) [facility] History of Past illness Narrative* Problem Noted [...] of this encounter (statuses as of 08/19/2022) [facility] History of Past illness Narrative* Problem Noted [...] of this encounter (statuses as of 09/06/2022) [facility] History of Past illness Narrative* Problem Noted [...] of this encounter (statuses as of 10/28/2022) [facility] History of Past illness Narrative* Problem Noted [...] of this encounter (statuses as of 11/04/2022) [facility] History of Past illness Narrative* Problem Noted [...] of this encounter (statuses as of 11/15/2022) [facility] History of Past illness Narrative* Problem Noted [...] of this encounter (statuses as of 12/06/2022) [facility] History of Past illness Narrative* Problem Noted [...] of this encounter (statuses as of 02/26/2023) [facility] History of Past illness Narrative* Problem Noted [...] of this encounter (statuses as of 03/08/2023) [facility] History of Past illness Narrative* Problem Noted [...] of this encounter (statuses as of 03/15/2023) [facility] History of Past illness Narrative* Problem Noted [...] of this encounter (statuses as of 06/27/2023) [facility] History of Past illness Narrative* Problem Noted [...] of this encounter (statuses as of 07/11/2023) [facility] History of Past illness Narrative* Problem Noted [...] of this encounter (statuses as of 07/13/2023) [facility] History of Past illness Narrative* Problem Noted [...] of this encounter (statuses as of 07/28/2023) [facility] History of Past illness Narrative* Problem Noted [...] of this encounter (statuses as of 08/08/2023) [facility] History of Past illness Narrative* Problem Noted [...] of this encounter (statuses as of 09/07/2023) [facility] ToledoConsult note Author Hakan Gunter [facility] Note Date/Time January 25, 2025 4:46pm [facility] Medical Records Department [address] [place] [id number] Consultation - Orthopedics 01/25/25 1644 MR#: [id number] Acct: [id number] Name: PERLA THOMPSON Rep #:[id number] : 1935 89 From: Hakan Gunter MD PCP: Dr. Nando Wiggins MD Status:R EG ER Location: ED HPI Consult Data Date of Consult: 01/25/25 HPI Narrative HPI Narrative: PERLA THOMPSON, is a 89 M who presents with a right hip fracture, in the setting ofa prior below knee amp on that side. 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 Wound, open, foot End stage renal disease MRSA (methicillin resistant staph aureus) culture positive Cutaneous abscess of right foot Diabetic infection of right foot Acute hyperkalemia Open wound Lives in [facility] Dietary restriction History of stress test History of echocardiogram Cardiology follow-up encounter History of atrial fibrillation Insulin dependent diabetes mellitus Other specified peripheral vascular diseases 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 Reading Location: [facility] Chest X-Ray 01/25/25 15:57 IMPRESSION: Low lung volumes. Congestion. Reading Location: [facility] Assessment & Plan Assessment/Plan (1) Closed right [...] for reduction control while nailing the fracture. MGEAN for now. 01/25/25 [id number] <Electronically signed by Hakan Gunter MD> Cosigner Signature (if applicable): CC: Dr. Nando Wiggins MD~ Signed [facility] Work Phone: Consult note Author Hakan Gunter [facility] Note Date/Time January 25, 2025 6:10pm [facility] Medical Records Department [address] [place] [address] Consultation - Orthopedics 01/25/25 1805 MR#: [id number] Acct: [id number] Name: PERLA THOMPSON Rep #:[id number] : 1935 89 From: Hakan Gunter MD PCP: Dr. Nando Wiggins MD Status:A DM IN Location: [facility] [id number] HPI Consult Data Date of Consult: 01/25/25 HPI Narrative HPI Narrative: PERLA THOMPSON, is a 89 M who presents with a right hip fracture. Fell out of a chair in [facility]. does not ambulate for months now. uses a radha lift. his son and daughter are here at the bed side. on dialysis. has right below knee amp. 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 Wound, open, foot End stage renal disease MRSA (methicillin resistant staph aureus) culture positive Cutaneous abscess of right foot Diabetic infection of right foot Acute hyperkalemia Open wound Lives in [facility] Dietary restriction History of stress test History of echocardiogram Cardiology follow-up encounter History of atrial fibrillation Insulin dependent diabetes mellitus Other specified peripheral vascular diseases 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 Reading Location: [facility] Chest X-Ray 01/25/25 15:57 IMPRESSION: Low lung volumes. Congestion. Reading Location: [facility] 2 part IT hip fracture. bones consistent [...] the surgery. For now MEGAN, NPO at [facility] in hopes of doing the procedure tomorrow. 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 Pros and cons risks [...] applicable): CC: Dr. Nando Wiggins MD~ Signed [facility] Work Phone: Consult note Author Tmami Mosher [facility] Note Date/Time January 29, 2025 12:45pm [facility] Medical Records Department [address] [place] [address] Counseling Note - Pharmacy 01/29/25 1141 MR#: [id number] Acct: [id number] Name: PERLA THOMPSON Rep #:[id number] : 1935 89 From: Tammi Mosher PCP: Dr. Nando Wiggins MD Status:A DM IN Y [facility] [place] [facility] Pharmacy Service has performed discharge medication reconciliation for this patient. The patient's discharge medication list was reviewed for discrepancies and discrepancies were resolved. Medications at Discharge Home Medications aspirin 81 mg tablet,delayed release (Adult Aspirin Regimen) 81 mg PO DAILY [facility] 07/01/20 Held on 01/29/25. Instructions: Resume [...] Signature (if applicable): Date CC: ~ Signed [facility] Work Phone: Evaluation + Plan note No data available for this section [facility] Evaluation note* Diagnosis Onset Date Resolution Status Problem with dialysis access acute Problem with dialysis access acute [facility] Work Phone: Evaluation note* Diagnosis 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 edema, without long-term current use of insulin ([facility]) documented in this encounter [facility]* Diagnosis 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 edema, without long-term current use of insulin ([facility]) documented in this encounter [facility]* Diagnosis 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 edema, without long-term current use of insulin ([facility]) documented in this encounter [facility]* Diagnosis 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 edema, without long-term current use of insulin ([facility]) documented in this encounter [facility] note* Diagnosis 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 edema, without long-term current use of insulin ([facility])- Primary Essential hypertension Unspecified essential hypertension Mixed hyperlipidemia 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) End stage renal disease Need for COVID-19 vaccine documented in this encounter [facility]* Diagnosis 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, without long-term current use of insulin ([facility] [facility] Primary Essential hypertension Unspecified essential hypertension Mixed hyperlipidemia 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) End stage renal disease Chronic diastolic heart failure (HCC) Chronic diastolic heart failure Bradycardia Other specified cardiac dysrhythmias Lower extremity edema Edema Noncompliance of patient with dietary regimen Personal history of noncompliance with medical treatment, presenting hazards to [facility] 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 Diagnosis 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, without long-term current use of insulin ([facility]) documented in this encounter [facility] Diagnosis 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, without long-term current use of insulin ([facility]) documented in this encounter [facility] Diagnosis 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, without long-term current use of insulin ([facility])- Primary ESRD (end stage renal disease) on dialysis ([facility]) End stage renal disease Chronic diastolic heart failure ([facility]) Chronic diastolic heart failure documented in this encounter [facility] note* Diagnosis 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 edema, without long-term current use of insulin ([facility]) documented in this encounter [facility] note* Diagnosis 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, without long-term current use of insulin ([facility]) documented in this encounter [facility] note* Diagnosis 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, without long-term current use of insulin ([facility])- Primary Lower extremity edema Edema ESRD (end stage renal disease) on dialysis ([facility]) End stage renal disease Chronic diastolic heart failure (HCC) Chronic diastolic heart failure Essential hypertension Unspecified essential hypertension 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 At high risk for falls Personal history of fall [facility] Diagnosis 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, without long-term current use of insulin ([facility]) [facility] Diagnosis 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 edema, without long-term current use of insulin ([facility])- Primary Onychomycosis Dermatophytosis of nail Left foot pain Pain in limb Right foot pain Pain in limb [facility] Diagnosis 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, without long-term current use of insulin ([facility]) [facility] Diagnosis 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, without long-term current use of insulin ([facility]) [facility] Diagnosis 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 edema, with long-term current use of insulin ([facility]) [facility] Diagnosis 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, without long-term current use of insulin ([facility]) [facility] Diagnosis 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 edema, with long-term current use of insulin ([facility])- Primary 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) End stage renal disease Chronic diastolic heart failure (HCC) Chronic diastolic heart failure 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 Lower extremity edema Edema Essential hypertension Unspecified essential hypertension Mixed hyperlipidemia [facility] Diagnosis 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, without long-term current use of insulin ([facility]) [facility] Diagnosis 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, acquired [facility] Diagnosis 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, without long-term current use of insulin (HCC)- Primary 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) End stage renal disease [facility] Diagnosis Right foot infection- Primary Unspecified local infection of skin and subcutaneous tissue [facility] Diagnosis 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, without long-term current use of insulin ([facility]) [facility] Additional Instructions CT scan of the brain showed no broken bones or internal bleeding. Give Tylenol as needed. Keep the small nasal wound clean. If symptoms worsen such as a severe headache, vomiting, confusion please return to the ER.[facility] Work Phone: Progress note Author Hakan Gunter [facility] Note Date/Time February 15, 2025 10:55am [facility] [address] [place] [address] [place] [address] OFFICE VISIT Date of Service: 02/15/25 MR#: [id number] Acct: [id number] Name: PERLA THOMPSON Rep #: [id number] : 1935 Provider: Dr. 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 Wound, open, foot End stage renal disease MRSA (methicillin resistant staph aureus) culture positive Cutaneous abscess of right foot Diabetic infection of right foot Acute hyperkalemia Open wound Lives in [facility] Dietary restriction History of stress test History of echocardiogram Cardiology follow-up encounter History of atrial fibrillation Insulin dependent diabetes mellitus Other specified peripheral vascular diseases 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 [facility]. assisted living.here in stretcher. Supplemental Info [...] Cosign Signature: Date (if applicable) CC: ~ [facility] Work Phone: Reason for referral (narrative)* Diagnostic Procedure Only (Routine) - Closed Specialty Diagnoses / Procedures Referred By Tay aguilar Referred To Contact XR IMAGING Diagnoses Deformity of both feet Procedures XR FOOT GENERAL 3V AP/LAT/OBL BILAT X-RAY FOOT MINIMUM 3 VIEWS Husam Yan MD [address] [place] [address] [place] [address] Referral ID Status Reason Start Date Expiration Date V isits Requested Visits Authorized [id number] Closed Auto-Generate d Referral 03/04/2021 04/03/2022 1 1 [facility] for referral (narrative)No reason for referral information [facility]al[facility] Work Phone: Reason for visit Narrative* Diagnostic Procedure Only (Routine) - Closed Specialty Diagnoses / Procedures Referred By Contac t Referred To Contact XR IMAGING Diagnoses Deformity of both feet Procedures XR FOOT GENERAL 3V AP/LAT/OBL BILAT X-RAY FOOT MINIMUM 3 VIEWS Husam Yan MD [address] [place] [address] [place] [address] Referral ID Status Reason Start Date Expiration Date V isits Requested Visits Authorized [id number] Closed Auto-Generate d Referral 03/04/2021 04/03/2022 1 1 [facility] Chief Complaint and Reason for Visit Chief Complaint L ARM DIALYSIS CATH LOW ADEQUECY LOW ACCESS FLOW DIALYSIS ACCESS COMPLICATION DIALYSIS ACCESS COMPLICATION Reason for Visit Problem with dialysi s access Problem with dialysis access Chief Complaint Admit Date [facility] WORK June 06, 2024 5:00am 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 June 06, 2024 5:57am POST-OP EXAM June 06, 2024 2 :32pm LABWORK June 08, 2024 5 :00am [facility] June 11, 2024 5:00am LAB [...] 30am WOUND August 20, 2024 1:5 9pm [facility] August 27, 2024 4: 00am [...] chronic disease August 29 1:06pm Atherosclerosis of teller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 August 29, 2024 1:06pm Wound, open, foot August 29, 2024 1:06 pm 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 September 24, 2024 9:58am Chief Complaint Admit Date [facility] WORK June 06, 2024 5:00am 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 June 06, 2024 5:57am POST-OP EXAM June 06, 2024 2 :32pm LABWORK June 08, 2024 5 :00am [facility] June 11, 2024 5:00am LAB [...] 30am WOUND August 20, 2024 1:5 9pm [facility] August 27, 2024 4: 00am [...] chronic disease August 29 1:06pm Atherosclerosis of teller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 [...] 30am WOUND August 20, 2024 1:5 9pm [facility] August 27, 2024 4: 00am [...] chronic disease August 29 1:06pm Atherosclerosis of teller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 [...] 30am WOUND August 20, 2024 1:5 9pm [facility] August 27, 2024 4: 00am [...] chronic disease August 29 1:06pm Atherosclerosis of teller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 [...] 30am WOUND August 20, 2024 1:5 9pm [facility] August 27, 2024 4: 00am WOUND August 27, 2024 8:23 am WOUND August 27, 2024 9:27 am RE-ADMISSION EXAM September 05, 2024 5:4 0pm LABWORK September 10, 2024 5:0 0am LABWORK September 12, 2024 5:0 0am [facility] September 17, 2024 4 :00am LABWORK September 24, 2024 5:00am WOUND September 24, 2024 9:58am WOUND September 24, 2024 11:01a m LABWORK October 02, 2024 5:00a m Remove hola/Amp 08/29/2024 October 03, 2 025 8:55am [facility] October 08, 2024 4:0 0am [facility] October 16, 2024 5:0 0am 2 WK FU October 17, 2024 10:05 am [facility] October 29, 2024 4:0 0am [...] chronic disease August 29 1:06pm Atherosclerosis of teller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 [...] 30am WOUND August 20, 2024 1:5 9pm [facility] August 27, 2024 4: 00am WOUND August 27, 2024 8:23 am WOUND August 27, 2024 9:27 am RE-ADMISSION EXAM September 05, 2024 5:4 0pm LABWORK September 10, 2024 5:0 0am LABWORK September 12, 2024 5:0 0am [facility] September 17, 2024 4 :00am LABWORK September 24, 2024 5:00am WOUND September 24, 2024 9:58am WOUND September 24, 2024 11:01a m LABWORK October 02, 2024 5:00a m Remove hola/Amp 08/29/2024 October 03, 2 025 8:55am [facility] October 08, 2024 4:0 0am [facility] October 16, 2024 5:0 0am 2 WK FU October 17, 2024 10:05 am [facility] October 22, 2024 5:0 0am [facility] WORK October 29, 2024 4:0 0am [...] chronic disease August 29 1:06pm Atherosclerosis of teller artery of righ t leg with gangrene [...] 30am WOUND August 20, 2024 1:5 9pm [facility] WORK August 27, 2024 4: 00am WOUND August 27, 2024 8:23 am WOUND August 27, 2024 9:27 am RE-ADMISSION EXAM September 05, 2024 5:4 0pm LABWORK September 10, 2024 5:0 0am LABWORK September 12, 2024 5:0 0am [facility] September 17, 2024 4 :00am LABWORK September 24, 2024 5:00am WOUND September 24, 2024 9:58am WOUND September 24, 2024 11:01a m LABWORK October 02, 2024 5:00a m Remove hola/Amp 08/29/2024 October 03, 2 025 8:55am [facility] October 08, 2024 4:0 0am [facility] October 16, 2024 5:0 0am MONTHLY EXAM October 16, 2024 5:30p m 2 WK FU October 17, 2024 10:05 am [facility] October 22, 2024 5:0 0am [facility] October 29, 2024 4:0 0am [...] 30am WOUND August 20, 2024 1:5 9pm [facility] August 27, 2024 4: 00am WOUND August 27, 2024 8:23 am WOUND August 27, 2024 9:27 am RE-ADMISSION EXAM September 05, 2024 5:4 0pm LABWORK September 10, 2024 5:0 0am LABWORK September 12, 2024 5:0 0am [facility] September 17, 2024 4 :00am LABWORK September 24, 2024 5:00am WOUND September 24, 2024 9:58am WOUND September 24, 2024 11:01a m LABWORK October 02, 2024 5:00a m Remove hola/Amp 08/29/2024 October 03, 2 025 8:55am [facility] October 08, 2024 4:0 0am [facility] October 16, 2024 5:0 0am MONTHLY EXAM October 16, 2024 5:30p m 2 WK FU October 17, 2024 10:05 am [facility] October 22, 2024 5:0 0am [facility] October 29, 2024 4:0 0am 1 Y FU October 29, 2024 9:45a m MONTHLY EXAM November 02, 2024 5:00 pm LABWORK November 05, 2024 5:00 am fall November 08, 2024 7:35 pm [facility] November 12, 2024 5: 00am bradycardia November 22, 2024 8:44a m Chief Complaint Admit Date RE-ADMISSION EXAM September 05, 2024 5:4 0pm LABWORK September 10, 2024 5:0 0am LABWORK September 12, 2024 5:0 0am [facility] September 17, 2024 4 :00am LABWORK September 24, 2024 5:00am WOUND September 24, 2024 9:58am WOUND September 24, 2024 11:01a m LABWORK October 02, 2024 5:00a m Remove hola/Amp 08/29/2024 October 03, 2 025 8:55am [facility] October 08, 2024 4:0 0am [facility] October 16, 2024 5:0 0am MONTHLY EXAM October 16, 2024 5:30p m 2 WK FU October 17, 2024 10:05 am [facility] WORK October 22, 2024 5:0 0am [facility] October 29, 2024 4:0 0am 1 Y FU October 29, 2024 9:45a m MONTHLY EXAM November 02, 2024 5:00 pm LABWORK November 05, 2024 5:00 am fall November 08, 2024 7:35 pm [facility] November 12, 2024 5: 00am bradycardia November 22, 2024 8:44a m NEW ENROLEE December 26, 2024 9:3 4am Reason for Visit Admit Date 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 August 29, 2024 1:06pm End stage renal disease August 29, 2024 1:06pm Anemia of chronic disease August 29 1:06pm Atherosclerosis of teller artery of righ t leg with gangrene [...] 0am LABWORK September 12, 2024 5:0 0am [facility] September 17, 2024 4 :00am LABWORK September 24, 2024 5:00am WOUND September 24, 2024 9:58am WOUND September 24, 2024 11:01a m LABWORK October 02, 2024 5:00a m Remove hola/Amp 08/29/2024 October 03, 2 025 8:55am [facility] October 08, 2024 4:0 0am [facility] October 16, 2024 5:0 0am MONTHLY EXAM October 16, 2024 5:30p m 2 WK FU October 17, 2024 10:05 am [facility] WORK October 22, 2024 5:0 0am [facility] October 29, 2024 4:0 0am 1 Y FU October 29, 2024 9:45a m MONTHLY EXAM November 02, 2024 5:00 pm LABWORK November 05, 2024 5:00 am fall November 08, 2024 7:35 pm [facility] November 12, 2024 5: 00am bradycardia November 22, 2024 8:44a m Re-admission exam November 30, 2024 5:02 pm [facility] December 12, 2024 5: 00am [facility] December 19, 2024 5: 00am Pacer Check Remote December 26, 2024 9:0 0am NEW ENROLEE December 26, 2024 9:3 4am Chief Complaint Admit Date RE-ADMISSION EXAM September 05, 2024 5:4 0pm LABWORK September 10, 2024 5:0 0am LABWORK September 12, 2024 5:0 0am [facility] September 17, 2024 4 :00am LABWORK September 24, 2024 5:00am WOUND September 24, 2024 9:58am WOUND September 24, 2024 11:01a m LABWORK October 02, 2024 5:00a m Remove hola/Amp 08/29/2024September 14, 2 025 8:55am [facility] October 08, 2024 4:0 0am [facility] WORK October 16, 2024 5:0 0am MONTHLY EXAM October 16, 2024 5:30p m 2 WK FU October 17, 2024 10:05 am [facility] WORK October 22, 2024 5:0 0am [facility] October 29, 2024 4:0 0am 1 Y FU October 29, 2024 9:45a m MONTHLY EXAM November 02, 2024 5:00 pm LABWORK November 05, 2024 5:00 am fall November 08, 2024 7:35 pm [facility] WORK November 12, 2024 5: 00am bradycardia November 22, 2024 8:44a m Re-admission exam November 30, 2024 5:02 pm [facility] WORK December 12, 2024 5: 00am [facility] WORK December 19, 2024 5: 00am [...] Remove hola/Amp 08/29/2024September 14, 2 025 8:55am [facility] WORK October 08, 2024 4:0 0am [facility] WORK October 16, 2024 5:0 0am MONTHLY EXAM October 16, 2024 5:30p m 2 WK FU October 17, 2024 10:05 am [facility] WORK October 22, 2024 5:0 0am [facility] WORK October 29, 2024 4:0 0am 1 Y FU October 29, 2024 9:45a m MONTHLY EXAM November 02, 2024 5:00 pm LABWORK November 05, 2024 5:00 am fall November 08, 2024 7:35 pm [facility] WORK November 12, 2024 5: 00am bradycardia November 22, 2024 8:44a m Re-admission exam November 30, 2024 5:02 pm [facility] WORK December 12, 2024 5: 00am [facility] December 19, 2024 5: 00am New Concern December 20, 2024 3:01 pm FOLLOW UP December 21, 2024 5:5 2pm [facility] December 24, 2024 5 :00am Pacer Check Remote December 26, 2024 9:0 0am NEW ENROLEE December 26, 2024 9:3 4am Chief Complaint Admit Date LABWORK October 02, 2024 5:00a m Remove hola/Amp 08/29/2024 October 03, 2 025 8:55am [facility] WORK October 08, 2024 4:0 0am [facility] WORK October 16, 2024 5:0 0am MONTHLY EXAM October 16, 2024 5:30p m 2 WK FU October 17, 2024 10:05 am [facility] WORK October 22, 2024 5:0 0am [facility] WORK October 29, 2024 4:0 0am 1 Y FU October 29, 2024 9:45a m MONTHLY EXAM November 02, 2024 5:00 pm LABWORK November 05, 2024 5:00 am fall November 08, 2024 7:35 pm [facility] WORK November 12, 2024 5: 00am bradycardia November 22, 2024 8:44a m Re-admission exam November 30, 2024 5:02 pm [facility] WORK December 12, 2024 5: 00am [facility] WORK December 19, 2024 5: 00am New Concern December 20, 2024 3:01 pm FOLLOW UP December 21, 2024 5:5 2pm [facility] WORK December 24, 2024 5 :00am [...] January 25, 2025 5:56pm Current use of correction anticoagulation January 25, 2025 5:56pm End stage renal disease January 25, 2 025 5:56pm Fall January 25, 2025 5:56pm Chief Complaint Admit Date LABWORK October 02, 2024 5:00a m Remove hola/Amp 08/29/2024 October 03, 2 025 8:55am [facility] October 08, 2024 4:0 0am [facility] WORK October 16, 2024 5:0 0am MONTHLY EXAM October 16, 2024 5:30p m 2 WK FU October 17, 2024 10:05 am [facility] WORK Nuris 2nd, 2025 5:0 0am [facility] WORK October 29, 2024 4:0 0am 1 Y FU October 29, 2024 9:45a m MONTHLY EXAM November 02, 2024 5:00 pm LABWORK November 05, 2024 5:00 am fall November 08, 2024 7:35 pm [facility] WORK November 12, 2024 5: 00am bradycardia November 22, 2024 8:44a m Re-admission exam November 30, 2024 5:02 pm [facility] WORK December 12, 2024 5: 00am [facility] WORK December 19, 2024 5: 00am New Concern December 20, 2024 3:01 pm FOLLOW UP December 21, 2024 5:5 2pm [facility] WORK December 24, 2024 5 :00am [...] January 25, 2025 5:56pm Current use of correction anticoagulation January 25, 2025 5:56pm End stage renal disease January 25, 2 025 5:56pm Fall January 25, 2025 5:56pm Anemia of chronic disease January 25, 2025 5:56pm Chief Complaint Admit Date [facility] WORK October 29, 2024 4:0 0am 1 Y FU October 29, 2024 9:45a m MONTHLY EXAM November 02, 2024 5:00 pm LABWORK November 05, 2024 5:00 am fall November 08, 2024 7:35 pm [facility] WORK November 12, 2024 5: 00am bradycardia November 22, 2024 8:44a m Re-admission exam November 30, 2024 5:02 pm [facility] WORK December 12, 2024 5: 00am [facility] December 19, 2024 5: 00am New Concern December 20, 2024 3:01 pm FOLLOW UP December 21, 2024 5:5 2pm [facility] WORK December 24, 2024 5 :00am Pacer Check Remote December 26, 2024 9:0 0am NEW ENROLEE December 26, 2024 9:3 4am [facility] WORK January 23 5:00am fell and [...] 2024 9:51am LABOWRK February 01, 2025 5:00am [facility] WORK February 07 4:00am [facility] WORK So 23rd, 20 25 4:30am [...] January 25, 2025 5:56pm 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 January 25, 2025 5:56pm End stage renal disease January 25, 025 5:56pm Fall January 25, 2025 5:56pm Anemia of chronic disease January 25, 2025 5:56pm Closed hip fracture February 15, 2025 9:54am Chief Complaint Admit Date bradycardia November 22, 2024 8:44a m Re-admission exam November 30, 2024 5:02 pm [facility] December 12, 2024 5: 00am [facility] December 19, 2024 5: 00am New Concern December 20, 2024 3:01 pm FOLLOW UP December 21, 2024 5:5 2pm [facility] WORK December 24, 2024 5 :00am Pacer Check Remote December 26, 2024 9:0 0am NEW ENROLEE December 26, 2024 9:3 4am [facility] WORK January 23 5:00am fell and [...] FRACTURE Septemb er 2024 9:51am HOSP RE-ADMISSION EXAM-PULP [employer]ER January 2:45pm LABOWRK February 01, 2025 5:00am [facility] February 07 4:00am [facility] February 12 4:30am [facility] February 14 5:00am RIGHT HIP [...] January 25, 2025 5:56pm Current use of correction anticoagulation January 25, 2025 5:56pm End stage [...] Documents on File Type Date Recorded 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 Advance Directive(s) 07/03/2024 11:50 AM Date Activated Date Inactivated Comments 11/23/2024 5:43 AM 11/28/2024 2:55 PM Question Answer Comments Full Code Order Discussed With: Patient Advance Directive Response Recorded Date/ Time Advance Directives on File No November 06, 2021 9:22am Name of Medical Power of Senior Analysis Specialist Arian Thompson November 06, 2021 9:22am Advance Directives Yes November 06 9:22am Living Will Yes November 06, 2021 9:22am Power of Senior Analysis Specialist Yes November 06 9:22am Advance Directive Response Recorded Date/ Time Living Will Yes July 02 2:52pm Do you have a Healthcare Pow er of Senior Analysis Specialist? Yes February 10th, 2025 2:52pm Name of Medical Power of Senior Analysis Specialist RADHA GATES July 02, 2024 2:52pm Living Will Yes July 03 3:50pm Do you have a Healthcare Pow er of Senior Analysis Specialist? Yes July 03, 2024 3:50pm Name of Medical Power of Senior Analysis Specialist jacinda gates July 03, 2024 3:50pm Living Will Yes July 07 7:28pm Do you have a Healthcare Pow er of Senior Analysis Specialist? Yes July 07, 2024 7:28pm Name of Medical Power of Senior Analysis Specialist maurice gates- daughter July 07, 2024 7:28pm Living Will Yes July 13 7:33pm Do you have a Healthcare Pow er of Senior Analysis Specialist? Yes July 13, 2024 7:33pm Name of Medical Power of Senior Analysis Specialist Jacinda avila July 13, 2024 7:33pm Living Will Yes August 28, 2024 8:57am Do you have a Healthcare Pow er of Senior Analysis Specialist? Yes August 28, 2024 8:57am Name of Medical Power of Senior Analysis Specialist RADHA GATES August 28, 2024 8:57am Living Will No June 04 2:32pm Do you have a Healthcare Pow er of Senior Analysis Specialist? No June 04, 2024 2:32pm Living Will Yes August 01, 2024 1:12pm Do you have a Healthcare Pow er of Senior Analysis Specialist? Yes August 01, 2024 1:12pm Name of Medical Power of Senior Analysis Specialist Jacinda Gates - dg August 01, 2024 1:12pm Advance Directives Yes April 11:29am Advance Directive Response Recorded Date/ Time Living Will Yes July 02 2:52pm Do you have a Healthcare Pow er of Senior Analysis Specialist? Yes July 02, 2024 2:52pm Name of Medical Power of Senior Analysis Specialist RADHA GATES July 02, 2024 2:52pm Living Will Yes July 03 3:50pm Do you have a Healthcare Pow er of Senior Analysis Specialist? Yes July 03, 2024 3:50pm Name of Medical Power of Senior Analysis Specialist jacinda gates July 03, 2024 3:50pm Living Will Yes July 07 7:28pm Do you have a Healthcare Pow er of Senior Analysis Specialist? Yes July 07, 2024 7:28pm Name of Medical Power of Senior Analysis Specialist maurice gates- francisco July 07, 2024 7:28pm Living Will Yes July 13 025 7:33pm Do you have a Healthcare Pow er of Senior Analysis Specialist? Yes July 13, 2024 7:33pm Name of Medical Power of Senior Analysis Specialist Jacinda avila July 13, 2024 7:33pm Living Will Yes August 28, 2024 8:57am Do you have a Healthcare Pow er of Senior Analysis Specialist? Yes August 28, 2024 8:57am Name of Medical Power of Senior Analysis Specialist RADHA GATES August 28, 2024 8:57am Living Will Yes August 01, 2024 1:12pm Do you have a Healthcare Pow er of Senior Analysis Specialist? Yes August 01, 2024 1:12pm Name of Medical Power of Senior Analysis Specialist Jacinda Gates - [email or web address] August 01, 2024 1:12pm Advance Directives Yes April 11:29am Advance Directive Response Recorded Date/ Time Living Will Yes November 06, 2021 9:22am Do you have a Healthcare Pow er of Senior Analysis Specialist? Yes November 06, 2021 9:22am Living Will Yes July 13 7:33pm Do you have a Healthcare Pow er of Senior Analysis Specialist? Yes July 13, 2024 7:33pm Name of Medical Power of Senior Analysis Specialist Jacinda avila July 13, 2024 7:33pm Living Will Yes August 28, 2024 8:57am Do you have a Healthcare Pow er of Senior Analysis Specialist? Yes August 28, 2024 8:57am Name of Medical Power of Senior Analysis Specialist RADHA GATES August 28, 2024 8:57am Do you have a Healthcare Pow er of Senior Analysis Specialist? No November 08, 2024 7:39pm Living Will Yes August 01, 2024 1:12pm Do you have a Healthcare Pow er of Senior Analysis Specialist? Yes August 01, 2024 1:12pm Name of Medical Power of Senior Analysis Specialist Jacinda Gates - [email or web address] August 01, 2024 1:12pm Advance Directives Yes April 11:29am Advance Directive Response Recorded Date/ Time Living Will Yes November 06, 2021 9:22am Do you have a Healthcare Pow er of Senior Analysis Specialist? Yes November 06, 2021 9:22am Living Will Yes August 28, 2024 8:57am Do you have a Healthcare Pow er of Senior Analysis Specialist? Yes August 28, 2024 8:57am Name of Medical Power of Senior Analysis Specialist RADHA GATES August 28, 2024 8:57am Do you have a Healthcare Pow er of Senior Analysis Specialist? No November 08, 2024 7:39pm Do you have a Healthcare Pow er of Senior Analysis Specialist? Yes November 22, 2024 12:42pm Living Will Yes August 01, 2024 1:12pm Do you have a Healthcare Pow er of Senior Analysis Specialist? Yes August 01, 2024 1:12pm Name of Medical Power of Senior Analysis Specialist Jacinda Gates - [email or web address] August 01, 2024 1:12pm Advance Directives Yes April 11:29am Advance Directive Response Recorded Date/ Time Living Will Yes November 06, 2021 9:22am Do you have a Healthcare Power of Senior Analysis Specialist? Yes November 06, 2021 9:22am Living Will Yes August 28, 2024 8:57am Do you have a Healthcare Power of Senior Analysis Specialist? Yes August 28, 2024 8:57am Name of Medical Power of Senior Analysis Specialist RADHA GATES August 28, 2024 8:57am Do you have a Healthcare Power of Senior Analysis Specialist? No November 08, 2024 7:39pm Do you have a Healthcare Power of Senior Analysis Specialist? Yes November 22, 2024 12:42pm Advance Directives Yes April 11:29am Advance Directive Response Recorded Date/ Time Living Will Yes November 06, 2021 9:22am Do you have a Healthcare Power of Senior Analysis Specialist? Yes November 06, 2021 9:22am Do you have a Healthcare Power of Senior Analysis Specialist? No November 08, 2024 7:39pm Do you have a Healthcare Power of Senior Analysis Specialist? Yes November 22, 2024 12:42pm Advance Directives Yes April 11:29am Advance Directive Response Recorded Date/ Time Living Will Yes November 06, 2021 9:22am Do you have a Healthcare Power of Senior Analysis Specialist? Yes November 06, 2021 9:22am Do you have a Healthcare Power of Senior Analysis Specialist? No November 08, 2024 7:39pm Do you have a Healthcare Power of Senior Analysis Specialist? Yes November 22, 2024 12:42pm Do you have a Healthcare Power of Senior Analysis Specialist? Yes January 25, 2025 4:27pm Advance Directives Yes April 11:29am Advance Directive Response Recorded Date/ Time Living Will Yes November 06, 2021 9:22am Do you have a Healthcare Power of Senior Analysis Specialist? Yes November 06, 2021 9:22am Do you have a Healthcare Power of Senior Analysis Specialist? No November 08, 2024 7:39pm Do you have a Healthcare Power of Senior Analysis Specialist? Yes November 22, 2024 12:42pm Do you have a Healthcare Power of Senior Analysis Specialist? Yes January 25, 2025 6:43pm Advance Directives Yes April 11:29am Advance Directive Response Recorded Date/ Time Advance Directives Yes March 08, 2025 10:50am Do you have a Healthcare Power of Senior Analysis Specialist? Yes November 22, 2024 12:42pm Do you have a Healthcare Power of Senior Analysis Specialist? Yes January 25, 2025 6:43pm Reason for Referral Specialty Diagnoses / Procedures Referred By Tay t Referred To Contact Diagnoses 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 edema, without long-term current use of insulin ([facility]) Lauren Arzola APRN.CAR USHER [address] [place] [address] Referral ID Status Reason Start Date Expiration Date V isits Requested Visits Authorized [id number] Pending Review 1 1 Referral ID Status Reason Start Date Expiration Date Visits Re quested Visits Authorized [id number] Closed 1 1 Specialty Diagnoses / Procedures Referred By Tay t Referred To Contact Diagnoses 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, without long-term current use of insulin ([facility]) Lauren Arzola APRN.[employer] [address] [place] [address] Referral ID Status Reason Start Date Expiration Date V isits Requested Visits Authorized [id number] Authorized 1 1 Summary Purpose Additional Source Comments Source Comments (unrecognize d section and content) In the event this informatio n is protected by the Federal Confidentiality of Alcohol and Drug Abuse Patient Records regulations: The Federal rules restrict any use of the information to criminally investigate or prosecute any alcohol or drug abuse patient.[facility] the event this information is protected by the Federal Confidentiality of Alcohol and Drug Abuse Patient Records regulations: The Federal rules restrict any use of the information to criminally investigate or prosecute any alcohol or drug abuse patient.[facility] the event this information is protected by the Federal Confidentiality of Alcohol and Drug Abuse Patient Records regulations: The Federal rules restrict any use of the information to criminally investigate or prosecute any alcohol or drug abuse patient.[facility] the event this information is protected by the Federal Confidentiality of Alcohol and Drug Abuse Patient Records regulations: The Federal rules restrict any use of the information to criminally investigate or prosecute any alcohol or drug abuse patient.[facility] the event this information is protected by the Federal Confidentiality of Alcohol and Drug Abuse Patient Records regulations: The Federal rules restrict any use of the information to criminally investigate or prosecute any alcohol or drug abuse patient.[facility] the event this information is protected by the Federal Confidentiality of Alcohol and Drug Abuse Patient Records regulations: The Federal rules restrict any use of the information to criminally investigate or prosecute any alcohol or drug abuse patient.[facility] the event this information is protected by the Federal Confidentiality of Alcohol and Drug Abuse Patient Records regulations: The Federal rules restrict any use of the information to criminally investigate or prosecute any alcohol or drug abuse patient.[facility] the event this information is protected by the Federal Confidentiality of Alcohol and Drug Abuse Patient Records regulations: The Federal rules restrict any use of the information to criminally investigate or prosecute any alcohol or drug abuse patient.[facility] the event this information is protected by the Federal Confidentiality of Alcohol and Drug Abuse Patient Records regulations: The Federal rules restrict any use of the information to criminally investigate or prosecute any alcohol or drug abuse patient.[facility] the event this information is protected by the Federal Confidentiality of Alcohol and Drug Abuse Patient Records regulations: The Federal rules restrict any use of the information to criminally investigate or prosecute any alcohol or drug abuse patient.[facility] the event this information is protected by the Federal Confidentiality of Alcohol and Drug Abuse Patient Records regulations: The Federal rules restrict any use of the information to criminally investigate or prosecute any alcohol or drug abuse patient.[facility] the event this information is protected by the Federal Confidentiality of Alcohol and Drug Abuse Patient Records regulations: The Federal rules restrict any use of the information to criminally investigate or prosecute any alcohol or drug abuse patient.[facility] the event this information is protected by the Federal Confidentiality of Alcohol and Drug Abuse Patient Records regulations: The Federal rules restrict any use of the information to criminally investigate or prosecute any alcohol or drug abuse patient.[facility] the event this information is protected by the Federal Confidentiality of Alcohol and Drug Abuse Patient Records regulations: The Federal rules restrict any use of the information to criminally investigate or prosecute any alcohol or drug abuse patient.[facility] the event this information is protected by the Federal Confidentiality of Alcohol and Drug Abuse Patient Records regulations: The Federal rules restrict any use of the information to criminally investigate or prosecute any alcohol or drug abuse patient.[facility] the event this information is protected by the Federal Confidentiality of Alcohol and Drug Abuse Patient Records regulations: The Federal rules restrict any use of the information to criminally investigate or prosecute any alcohol or drug abuse patient.[facility] the event this information is protected by the Federal Confidentiality of Alcohol and Drug Abuse Patient Records regulations: The Federal rules restrict any use of the information to criminally investigate or prosecute any alcohol or drug abuse patient.[facility] the event this information is protected by the Federal Confidentiality of Alcohol and Drug Abuse Patient Records regulations: The Federal rules restrict any use of the information to criminally investigate or prosecute any alcohol or drug abuse patient.[facility] the event this information is protected by the Federal Confidentiality of Alcohol and Drug Abuse Patient Records regulations: The Federal rules restrict any use of the information to criminally investigate or prosecute any alcohol or drug abuse patient.[facility]In the event this information is protected by the Federal Confidentiality of Alcohol and Drug Abuse Patient Records regulations: The Federal rules restrict any use of the information to criminally investigate or prosecute any alcohol or drug abuse patient.[facility] the event this information is protected by the Federal Confidentiality of Alcohol and Drug Abuse Patient Records regulations: The Federal rules restrict any use of the information to criminally investigate or prosecute any alcohol or drug abuse patient.[facility] the event this information is protected by the Federal Confidentiality of Alcohol and Drug Abuse Patient Records regulations: The Federal rules restrict any use of the information to criminally investigate or prosecute any alcohol or drug abuse patient.[facility] the event this information is protected by the Federal Confidentiality of Alcohol and Drug Abuse Patient Records regulations: The Federal rules restrict any use of the information to criminally investigate or prosecute any alcohol or drug abuse patient.[facility] the event this information is protected by the Federal Confidentiality of Alcohol and Drug Abuse Patient Records regulations: The Federal rules restrict any use of the information to criminally investigate or prosecute any alcohol or drug abuse patient.[facility] the event this information is protected by the Federal Confidentiality of Alcohol and Drug Abuse Patient Records regulations: The Federal rules restrict any use of the information to criminally investigate or prosecute any alcohol or drug abuse patient.[facility] the event this information is protected by the Federal Confidentiality of Alcohol and Drug Abuse Patient Records regulations: The Federal rules restrict any use of the information to criminally investigate or prosecute any alcohol or drug abuse patient.[facility] the event this information is protected by the Federal Confidentiality of Alcohol and Drug Abuse Patient Records regulations: The Federal rules restrict any use of the information to criminally investigate or prosecute any alcohol or drug abuse patient.[facility] the event this information is protected by the Federal Confidentiality of Alcohol and Drug Abuse Patient Records regulations: The Federal rules restrict any use of the information to criminally investigate or prosecute any alcohol or drug abuse patient.[facility] the event this information is protected by the Federal Confidentiality of Alcohol and Drug Abuse Patient Records regulations: The Federal rules restrict any use of the information to criminally investigate or prosecute any alcohol or drug abuse patient.[facility] the event this information is protected by the Federal Confidentiality of Alcohol and Drug Abuse Patient Records regulations: The Federal rules restrict any use of the information to criminally investigate or prosecute any alcohol or drug abuse patient.[facility] the event this information is protected by the Federal Confidentiality of Alcohol and Drug Abuse Patient Records regulations: The Federal rules restrict any use of the information to criminally investigate or prosecute any alcohol or drug abuse patient.[facility] the event this information is protected by the Federal Confidentiality of Alcohol and Drug Abuse Patient Records regulations: The Federal rules restrict any use of the information to criminally investigate or prosecute any alcohol or drug abuse patient.[facility] the event this information is protected by the Federal Confidentiality of Alcohol and Drug Abuse Patient Records regulations: The Federal rules restrict any use of the information to criminally investigate or prosecute any alcohol or drug abuse patient.[facility] the event this information is protected by the Federal Confidentiality of Alcohol and Drug Abuse Patient Records regulations: The Federal rules restrict any use of the information to criminally investigate or prosecute any alcohol or drug abuse patient.[facility]In the event this information is protected by the Federal Confidentiality of Alcohol and Drug Abuse Patient Records regulations: The Federal rules restrict any use of the information to criminally investigate or prosecute any alcohol or drug abuse patient.[facility]In the event this information is protected by the Federal Confidentiality of Alcohol and Drug Abuse Patient Records regulations: The Federal rules restrict any use of the information to criminally investigate or prosecute any alcohol or drug abuse patient.[facility] the event this information is protected by the Federal Confidentiality of Alcohol and Drug Abuse Patient Records regulations: The Federal rules restrict any use of the information to criminally investigate or prosecute any alcohol or drug abuse patient.[facility] the event this information is protected by the Federal Confidentiality of Alcohol and Drug Abuse Patient Records regulations: The Federal rules restrict any use of the information to criminally investigate or prosecute any alcohol or drug abuse patient.[facility] Reason for Visit (unrecogniz ed section and [...] Authorization Reason Comments Medication Problem Reason Comments [facility] requesting recor ds Reason Comments [...] End: July 13, 2024 Meredith Guevara NP, [employer]UL[employer] GR[employer]ER [employer] BLENDER-C Attending Provider Active Start: July 13, 2024 [...] 2024 End: July 31, 2024 Meredith Guevara PUL[employer] GR[employer]ER [employer] BLENDER, PUL[employer]ER [employer] BLENDER-C Attending Provider Active Start: July 31, 2024 End: July 31, 2024 Team Status: Inactive Member Role Status Dates Dr. Nando Wiggins MD Primary Care Provider Active Start: August 01, 2024 End: August 01, 2024 Meredith Guevara PULP GR[employer]ER [employer] BLENDER, PUL[employer] GR[employer]ER [employer] BLENDER-C Attending Provider Active Start: August 01, 2024 [...] Active Start : September 04, 2024 Dr. Randla Damico MD Other Provider Active Star t: September 04, 2024 Dr. Manuel Alva MD Other Provider Active Start: September 04, 2024 KRISTOFER Hernández Attending Provider Active Star t: September 04, 2024 Team Status: Inactive Member Role Status Dates Dr. Nando Wiggins MD Primary Care Provider Active Start: September 05, 2024 End: September 05, 2024 Meredith Guevara PULP GRINDER AND BLENDER, PULP GR[employer]ER AND BLENDER-C Attending Provider Active Start: September 05, 2024 [...] End: October 29, 2024 Pooja Ruano NP, PULP GR[employer]ER AND BLENDER-C Attending Provider Active Start: October 29, 2024 [...] End: July 02, 2024 Meredith Guevara NP PUL[employer] BLENDER-C Attending Provider Active Start: July 02, 2024 [...] End: July 10, 2024 Meredith Guevara NP PUL[employer]ER [employer] BLENDER-C Attending Provider Active Start: July 10, 2024 [...] Attending Provider Active Start: October 08, 2024 Manager Shipping Relationship Specialty Start Date End Date Husam Yan MD [address] [place] [address] PCP - General Family Practice 10/14/16 Manager Shipping Relationship Specialty Start Date End Date Husam Yan MD [address] [place] [address] PCP - General Family Practice 10/14/16 Manager Shipping Relationship Specialty Start Date End Date Husam Yan MD [address] [place] [address] PCP - General Family Practice 10/14/16 Manager Shipping Relationship Specialty Start Date End Date Husam Yan MD [address] [place] [address] PCP - General Family Practice 10/14/16 Manager Shipping Relationship Specialty Start Date End Date Husam Yan MD [address] [place] [address] PCP - General Family Medicine 10/14/16 Manager Shipping Relationship Specialty Start Date End Date Husam Yan MD [address] [place] [address] PCP - General Family Medicine 10/14/16 Manager Shipping Relationship Specialty Start Date End Date Husam Yan MD [address] [place] [address] PCP - General Family Medicine 10/14/16 Manager Shipping Relationship Specialty Start Date End Date Husam Yan MD [address] [place] [address] PCP - General Family Medicine 10/14/16 Manager Shipping Relationship Specialty Start Date End Date Husam Yan MD [address] [place] [address] PCP - General Family Medicine 10/14/16 Manager Shipping Relationship Specialty Start Date End Date Husam Yan MD [address] [place] [address] PCP - General Family Medicine 10/14/16 Manager Shipping Relationship Specialty Start Date End Date Husam Yan MD [address] [place] [address] PCP - General Family Medicine 10/14/16 Manager Shipping Relationship Specialty Start Date End Date Husam Yan MD [address] [place] [address] PCP - General Family Medicine 10/14/16 Manager Shipping Relationship Specialty Start Date End Date Husam Yan MD [address] [place] [address] PCP - General Family Medicine 10/14/16 Manager Shipping Relationship Specialty Start Date End Date Husam Yan MD [address] [place] [address] PCP - General Family Medicine 10/14/16 Manager Shipping Relationship Specialty Start Date End Date Husam Yan MD [address] [place] [address] PCP - General Family Medicine 10/14/16 Manager Shipping Relationship Specialty Start Date End Date Husam Yan MD [address] [place] [address] PCP - General Family Medicine 10/14/16 Manager Shipping Relationship Specialty Start Date End Date Husam Yan MD [address] [place] [address] PCP - General Family Medicine 10/14/16 Manager Shipping Relationship Specialty Start Date End Date Husam Yan MD [address] [place] [address] PCP - General Family Medicine 10/14/16 Manager Shipping Relationship Specialty Start Date End Date Husam Yan MD [address] [place] [address] PCP - General Family Medicine 10/14/16 Manager Shipping Relationship Specialty Start Date End Date Husam Yna MD [address] [place] [address] PCP - General Family Medicine 10/14/16 Manager Shipping Relationship Specialty Start Date End Date Husam Yan MD [address] [place] [address] PCP - General Family Medicine 10/14/16 Manager Shipping Relationship Specialty Start Date End Date Husam Yan MD [address] [place] [address] PCP - General Family Medicine 10/14/16 Manager Shipping Relationship Specialty Start Date End Date Husam Yan MD [address] [place] [address] PCP - General Family Medicine 10/14/16 Manager Shipping Relationship Specialty Start Date End Date Husam Yan MD [address] [place] [address] PCP - General Family Medicine 10/14/16 Manager Shipping Relationship Specialty Start Date End Date Husam Yan MD [address] [place] [address] PCP - General Family Medicine 10/14/16 Podlogar, Lauren, ELICIA.CAR USHER [address] [place] [address] Software Testing Specialist Family Medicine 04/28/24 Manager Shipping Relationship Specialty Start Date End Date Husam Yan MD [address] [place] [address] PCP - General Family Medicine 10/14/16 Podlogar, Lauren, GUITAR MAKER.CAR USHER [address] [place] [address] Software Testing Specialist Family Medicine 04/28/24 Manager Shipping Relationship Specialty Start Date End Date Husam Yan MD [address] [place] [address] PCP - General Family Medicine 10/14/16 PodLauren johnson APRN.[employer] USHER [address] [place] [address] Software Testing Specialist Family Medicine 04/28/24 Team Status: Inactive Member [...] 2024 End: June 06, 2024 Meredith Guevara PULP GR[employer]ER [employer] BLENDER, P[employer] GR[employer]ER [employer] BLENDER-C Attending Provider Active Start: June 06, 2024 [...] 2024 End: July 31, 2024 Meredith Guevara PULP GR[employer]ER AND BLENDER, PULP GR[employer]ER [employer] BLENDER-C Attending Provider Active Start: July 31, 2024 End: July 31, 2024 Team Status: Inactive Member Role/Relationship Status Dates Dr. Nando Wiggins MD Primary Care Provider Active Start: August 01, 2024 End: August 01, 2024 Meredith Guevara PULP GR[employer]ER AND BLENDER, P[employer]P GR[employer]ER [employer] BLENDER-C Attending Provider Active Start: August 01, 2024 [...] End: September 05, 2024 Meredith Guevara NP, PULP GR[employer]ER AND BLENDER-C Attending Provider Active Start: September 05, 2024 [...] End: October 29, 2024 Pooja Ruano NP, PULP GR[employer]ER AND BLENDER-C Attending Provider Active Start: October 29, 2024 [...] Provider Active Start: August 27, 2024 Dr. Rnadal Damico MD Other Provider Active Star t: [...] 29, 2024 End: September 04, 2024 Dr. Radnal Damico MD Other Provider Active Star t: [...] Provider Active Start: August 30, 2024 Dr. Ranadl Damico MD Other Provider Active Star t: [...] Active Star t: September 01, 2024 Dr. Mnauel Alva MD Other Provider Active Start: September [...] End: September 05, 2024 Meredith Guevara NP, [employer] Attending Provider Active Start: September 05, 2024 [...] End: October 29, 2024 Pooja Ruano NP, [employer]-C Attending Provider Active Start: October 29, 2024 [...] End: November 02, 2024 Meredith Guevara NP, [employer]-C Attending Provider Active Start: November 02, 2024 [...] November 22, 2024 End: November 23, 2024 Manager Shipping Relationship Specialty Start Date End Date Husam Yan MD [address] [place], [place] [id number] PCP - General Family Medicine 10/14/16 PodlogarLauren GUITAR MAKER.CAR USHER [address] [place], [place] [id number] [facility] 04/28/24 Yesenia Yi APRN.CAR USHER [address] [place], [place] [id number] [facility] 11/01/24 Team Status: Active Member Role/Relationship Status [...] End: September 05, 2024 Meredith Guevara NP, [employer]-C Attending Provider Active Start: September 05, 2024 [...] Status: Inactive Member Role/Relationship Status Dates Dr. Nadno Wiggins MD Primary Care Provider Active Start: [...] 2024 End: October 29, 2024 Pooja Ruano [employer]ER, [employer]-C Attending Provider Active Start: October 29, 2024 End: October 29, 2024 Dr. Nando Wiggins MD Primary Care Provider Active Start: October 29, 2024 End: October 29, 2024 Team Status: Inactive Member Role/Relationship Status Dates Dr. Nando Wiggins MD Primary Care Provider Active Start: November 02, 2024 End: November 02, 2024 Meredith Guevara [employer]ER, [employer]-C Attending Provider Active Start: November 02, 2024 [...] 2024 End: September 05, 2024 Meredith Guevara [employer]ER, [employer]-C Attending Provider Active Start: September 05, 2024 [...] End: October 29, 2024 Pooja Ruano NP, [employer]-C Attending Provider Active Start: October 29, 2024 End: October 29, 2024 Dr. Nando Wiggins MD Primary Care Provider Active Start: October 29, 2024 End: October 29, 2024 Team Status: Inactive Member Role/Relationship Status Dates Dr. Nando Wiggins MD Primary Care Provider Active Start: November 02, 2024 End: November 02, 2024 Meredith Guevara [employer]ER, [employer]-C Attending Provider Active Start: November 02, 2024 [...] 2024 End: November 23, 2024 Dr. Earl eDsai DO Emergency Provider Active Start: November 22, 2024 End: November 23, 2024 Team Status: Inactive Member Role/Relationship Status Dates Dr. Nando Wiggins MD Primary Care Provider Active Start: November 30, 2024 End: November 30, 2024 Meredith Guevara [employer]ER, [employer]-C Attending Provider Active Start: November 30, 2024 [...] 2024 End: December 20, 2024 Meredith Guevara [employer]ER, [employer]-C Attending Provider Active Start: December 20, 2024 [...] 2024 End: September 05, 2024 Meredith Guevara [employer]ER, [employer]-C Attending Provider Active Start: September 05, 2024 [...] 2024 End: October 29, 2024 Pooja Ruano [employer]ENDER, [employer]-C Attending Provider Active Start: October 29, 2024 End: October 29, 2024 Dr. Nando Wiggins MD Primary Care Provider Active Start: October 29, 2024 End: October 29, 2024 Team Status: Inactive Member Role/Relationship Status Dates Dr. Nando Wiggins MD Primary Care Provider Active Start: November 02, 2024 End: November 02, 2024 Meredith Guevara [employer]ER, [employer]-C Attending Provider Active Start: November 02, 2024 [...] End: November 30, 2024 Meredith Guevara NP, [employer]-C Attending Provider Active Start: November 30, 2024 [...] End: December 20, 2024 Meredith Guevara NP [employer]-C Attending Provider Active Start: December 20, 2024 [...] End: October 29, 2024 Pooja Ruano NP, [employer]-C Attending Provider Active Start: October 29, 2024 End: October 29, 2024 Dr. Nando Wiggins MD Primary Care Provider Active Start: October 29, 2024 End: October 29, 2024 Team Status: Inactive Member Role/Relationship Status Dates Dr. Nando Wiggins MD Primary Care Provider Active Start: November 02, 2024 End: November 02, 2024 Meredith Guevara [employer]ER P[employer]ER-C Attending Provider Active Start: November 02, 2024 [...] End: November 30, 2024 Meredith Guevara NP [employer]-C Attending Provider Active Start: November 30, 2024 [...] 2024 End: December 20, 2024 Meredith Guevara [employer]ER, [employer]-C Attending Provider Active Start: December 20, 2024 End: December 20, 2024 Team Status: Inactive Member Role/Relationship Status Dates Dr. Nando Wiggins MD Primary Care Provider Active Start: December 21, 2024 End: December 21, 2024 Meredith Guevara [employer]ER, [employer]-C Attending Provider Active Start: December 21, 2024 [...] 2024 End: October 29, 2024 Pooja Ruano P[employer]ER, [employer]-C Attending Provider Active Start: October 29, 2024 End: October 29, 2024 Dr. Nando Wiggins MD Primary Care Provider Active Start: October 29, 2024 End: October 29, 2024 Team Status: Inactive Member Role/Relationship Status Dates Dr. Nando Wiggins MD Primary Care Provider Active Start: November 02, 2024 End: November 02, 2024 Meredith Guevara [employer]ER, [employer]-C Attending Provider Active Start: November 02, 2024 [...] 2024 End: November 30, 2024 Meredith Guevara [employer]ER, [employer]-C Attending Provider Active Start: November 30, 2024 [...] 2024 End: December 20, 2024 Meredith Guevara [employer]ER, [employer]-C Attending Provider Active Start: December 20, 2024 End: December 20, 2024 Team Status: Inactive Member Role/Relationship Status Dates Dr. Nando Wiggins MD Primary Care Provider Active Start: December 21, 2024 End: December 21, 2024 Meredith Guevara [employer]ER, [employer]-C Attending Provider Active Start: December 21, 2024 [...] Provider Active Start: January 25, 2025 Beau Dunalp MD Emergency Provider Active Star t: January 25, 2025 Dr. Jayla Osuna MD Admit Provider Active Star t: January 25, 2025 Dr. Jayla Osuna MD Attending Provider Active Start: January 25, 2025 Team Status: Inactive Member Role/Relationship Status Dates Dr. Nando Wiggins MD Primary Care Provider Active Start: January 25, 2025 End: January 29, 2025 Beau Dunlpa MD Emergency Provider Active Star t: January [...] 2024 End: October 29, 2024 Pooja Ruano [employer]ER, [employer]-C Attending physician Active Start: October 29, 2024 End: October 29, 2024 Dr. Nando Wiggins MD Primary care physician Activ e Start: October 29, 2024 End: October 29, 2024 Team Status: Inactive Member Role/Relationship Status Dates Dr. Nando Wiggins MD Primary care physician Activ e Start: November 02, 2024 End: November 02, 2024 Meredith Guevara P[employer] BL[employer]ER, [employer]ER-C Attending physician Active Start: November 02, 2024 [...] 2024 End: November 30, 2024 Meredith Guevara [employer]ER, [employer]ER-C Attending physician Active Start: November 30, 2024 [...] End: December 20, 2024 Meredith Guevara NP, [employer]-C Attending physician Active Start: December 20, 2024 End: December 20, 2024 Team Status: Inactive Member Role/Relationship Status Dates Dr. Nando Wiggins MD Primary care physician Activ e Start: December 21, 2024 End: December 21, 2024 Meredith Guevara NP, [employer]-C Attending physician Active Start: December 21, 2024 [...] End: November 30, 2024 Meredith Guevara NP, [employer]-C Attending physician Active Start: November 30, 2024 [...] End: December 20, 2024 Meredith Guevara NP, [employer]-C Attending physician Active Start: December 20, 2024 End: December 20, 2024 Team Status: Inactive Member Role/Relationship Status Dates Dr. Nando Wiggins MD Primary care physician Activ e Start: December 21, 2024 End: December 21, 2024 Meredith Guevara NP, [employer]-C Attending physician Active Start: December 21, 2024 [...] St art: January 29, 2025 Dr. Manuel Alav MD Nurse Practitioner Active Start: January 29, 2025 Dr. Jaswant Montgomery MD Attending physician Active Start: January Dr. Jaswant Montgomery MD Nurse Practitioner Active Start: January Dr. Kimberly Orozco MD Nurse Practitioner Active Start: January 29, 2025 Team Status: Inactive Member Role/Relationship Status Dates Dr. Nando Wiggins MD Primary care physician Activ e Start: January 30, 2025 End: January 30, 2025 Meredith Guevara [employer] BL[employer]ER, [employer]-C Attending physician Active Start: January 30, 2025 [...] section and content) DATE CREATED AUTHOR 09/16/2023 [facility] ([place] DATE CREATED AUTHOR AUTHOR'S ORGANIZ ATION 12/28/2024 [facility] DATE CREATED AUTHOR AUTHOR'S ORGANIZ ATION 04/03/2025 [facility] FOR RECORDS PERTAINING TO PATIENTS [...] BE BASED ON THE PRIMARY CLINICAL RECORDS. [facility]. provides no warranty or guarantee of the accuracy or completeness of information in this document.
[2025-04-16 07:03] LABS: Hematocrit 37.3 % (40-54); Hemoglobin 11.6 g/dL (13.0-16.5); Immature Granulocytes Count 0.040 X10^3/uL (0.0-0.0); Mean Corp Hgb Conc 31.1 g/dL (32-36); Mean Corpuscular Volume 98.2 fL (80-94); Mean Platelet Vol. 12.1 fl (6.2-12.0); NRBC Flagged by Analyzer 0 % (0-5); Platelet Count 159 K/mm3 (150-450); RBC Distribution Width CV 14.3 % (11.6-14.6); RBC Distribution Width SD 51.5 fl (35.1-43.9); Red Blood Count 3.80 M/mm3 (4.6-6.2); White Blood Count 8.8 K/mm3 (4.4-11.0)
[2025-04-16 07:40] LABS: Anion Gap 12 (5-15); BUN 28 mg/dL (4-19); BUN/Creat Ratio 7.3 RATIO (10-20); Calcium,Total 9.2 mg/dL (7.6-11.0); Carbon Dioxide 29.4 mmol/L (21.0-32.0); Chloride 94 mmol/L (98-108); Glucose 156 mg/dL (70-99); Potassium 4.5 mmol/L (3.3-5.1)
== END ==
LOC: OLS.WHLEAS 05:00
PROVIDERS: PCP Internal Medicine; Visit Provider Internal Medicine
DX: E11.22 Type 2 diabetes mellitus with diabetic chronic kidney disease (principal); N18.9 Chronic kidney disease, unspecified
CPT/HCPCS: 36415; 80048; 85025

== ENCOUNTER → 2025-05-07 05:00 | Outpatient (REF) | payer MEDICARE, SELFPAY ==
--- OUTSIDE RECORDS SUMMARY | 2025-05-07 03:16 | XMS RPT_ITS | CCD ---
Author Organization [facility] ion Partnership [facility] Care Team Providers Care Utilization Management Rn Name Role Phone Patricia HALL, Alanna Jacobson Unavailable Unavailable Carmen Hurt Unavailable Unavailable ISABEL Kraus, Bernarda Raymundo Unavailable Unavailabl desiree Gomez RN, Alanna Jacobson Unavailable Unavailable Carmen Hurt Unavailable Unavailable DeFinis, Harumi Y Unavailable Unavailable Carmen Hurt Unavailable Unavailable Husam Yan MD Primary Care Provider Dr. Jean Yan Primary Care Provider [phone] Dr. Jean Yan Referring Provider EMILY Foley Attending Provider [phone] Dr. Randal Macias Attending Provider Dr. Randal Macias Referring Provider Dr. Randal Macias Other Provider Husam Yan MD Primary Care Provider Husam Yan MD Primary Care Provider Husam Yan MD Primary Care Provider SCHUYLER ARREAGA MD, JEAN PIERRE Attending Unavaila JERMAINE Nash MD Consulting Unavailable GARY HOWARD MD Consulting Unavailable Husam Yan MD Primary Care Provider Podlogar COGNOS DEVELOPER.INFORMATICS PHYSICIAN LIAISON, Lauren Unavailable Dr. Jean Yan MD Primary Care Provider Nando Wiggins MD Attending Provider Unavaila ble Greenbush DPM, Dr. Nunes Attending Provider Suraj DPM, Dr. Nunes Referring Provider Rosalie AVILA, Dr. Collier Primary Care Provider Paola CHANNEL LIP WETTER-C, Meredith Attending Provider Rosalie AVILA, Nando Referring Provider Unavailuzma Mendoza DPM, Dr. Kelley Referring Provider Payal AVIAL, Dr. Pena Referring Provider [phone] Salma Dugan Attending Provider Jerome AVILA, Dr. Byers Emergency Provider Arlin DIEZ, Dr. Cnoley Admit Provider Arlin DIEZ, Dr. Conley Attending Provider Artie AVILA, Dr. Jackson Other Provider Arlin DIEZ, Dr. Conley Other Provider Rigoberto AVILA, Dr. Reeys Attending Provider Rigoberto AVILA, Dr. Reyes Emergency [...] Mookie AVILA, Dr. Tee Attending Provider Mookie AVLIA, Dr. Tee Other Provider Paola TOLEDO-CMeredith Attending [...] Dr. Earl Desai DO Attending Provider Kassidy COGNOS DEVELOPER.INFORMATICS PHYSICIAN LIAISON, Yesenia Unavailable Rosalie AVILA, Dr. Collier Primary [...] Nando Heller MD Referring Provider Unavailuzma Ruano CHANNEL LIP WETTER-C, Pooaj Attending Physician Paola CHANNEL LIP WETTER-CMeredith Attending Physician Dr. Max Roberts DO Attending Physician Dr. Max Roberts DO Emergency Department Physician Dr. Earl Desai DO Attending Physician Dr. Earl Desai DO Emergency Department Physi phil Dr. Lraon Bacon MD Attending Physician Beau Dunlap MD [...] Referring Unavailable Bursley, Jean Primary Care Unavailable Karlsruhe, Earl Referring Unavailable Bursley, Jean Primary Care Unavailable Earl White Attending Unavailable Oleghe OLS, Efewongbe Attending Unavailabl desiree Garcialey, Jean Primary Care Unavailable Oleghe, Efewongbe Primary Care Unavailable Tickton CHANNEL LIP WETTER, Meredith Attending Unavailable Oleghe, Efewongbe Primary Care Unavailable [place] CHANNEL LIP WETTER, Meredith Attending Unavailable Oleghe, Efewongbe Primary Care Unavailable Suellenton CHANNEL LIP WETTER, Meredith Attending Unavailable Jaswant Montgomery Consulting Unavailable Jaswant Montgomery Admitting Unavailable Deni Shields Attending Unavailable Bursley, Jean Primary Care Unavailable Randal Shore Consulting Unavailable Tanphaichikenny, Natthavat Consulting Unavaila ble Des Ruelas Consulting Unavailable Karlsruhe, Earl Consulting Unavailable Oleghe, Efewongbe Primary Care Unavailable Jayla Osuna Admitting Unavailable Josef Garcia Consulting Unavailable Chung Humphreys Referring Unavailable Juan Antonio Holden Attending Unavailable Artie, Jayaprakas Consulting Unavailable Jayla Osuna Consulting Unavailable Randal Shore Consulting Unavailable Juan Antonio Holden Consulting Unavailable Jayla Osuna Attending Unavailable Margarette Godinez Attending Unavailable Margarette Godinez Consulting Unavailable Oleghe, Efewongbe Primary Care Unavailable [place] CHANNEL LIP WETTER, Meredith Attending Unavailable Salma Cervantes Attending Unavailable Oleghe, Efewongbe Primary Care Unavailable Bursley, Jean Referring Unavailable Oleghe, Efewongbe Primary Care Unavailable [place] CHANNEL LIP WETTER, Meredith Attending Unavailable Oleghe, Efewongbe Primary Care Unavailable [place] CHANNEL LIP WETTER, Meredith Attending Unavailable Oleghe, Efewongbe Primary Care Unavailable Oleghe, Efewongbe Attending Unavailable Oleghe, Efewongbe Attending Unavailable Bursley, Jean Primary Care Unavailable Bursley, Jean Primary Care Unavailable [place]ton CHANNEL LIP WETTER, Meredith Attending Unavailable Oleghe, Efewongbe Primary Care [...] Unavailable Oleghe, Efewongbe Primary Care Unavailable Arleen, [place] Referring Unavailable Shameka Baconl Attending Unavailable Oleghe, [...] Unavailable Oleghe, Efewongbe Primary Care Unavailable Paola CHANNEL LIP WETTER, Meredith Attending Unavailable Oleghe, Efewongbe Primary Care [...] Attending Unavailable Oleghe, Efewongbe Primary Care Unavailable Karlsruhe, Earl Referring Unavailable Siska, Randal Consulting Unavailable Christopher, Earl Admitting Unavailable Christopher, Earl Attending Unavailable Karlsruhe, Earl Consulting Unavailable Sisdhaval Randal Attending Unavailable Artie, Jayaprakas Consulting Unavailable Salma Cervantes Attending Unavailable Karlsruhe, Earl Referring Unavailable Siska, Randal Consulting Unavailable [...] Unavailable Oleghe, Efewongbe Primary Care Unavailable [place] CHANNEL LIP WETTER, Meredith Attending Unavailable Oleghe, Efewongbe Primary Care Unavailable Paola CHANNEL LIP WETTER, Meredith Attending Unavailable Oleghe, Efewongbe Primary Care Unavailable Paola CHANNEL LIP WETTER, Meredith Attending Unavailable Oleghe, Efewongbe Primary Care [...] [ATENOLOL] allergy to substance 0 GI Upset [facility] Work Phone: (17 sources) pioglitazone drug allergy 7 fatigue [facility] Work Phone: (12 sources) simvastatin drug allergy 7 myalgia [facility] Work Phone: (12 sources) SITagliptin drug allergy 7 [facility] Work Phone: (20 sources) pioglitazone; Translations: [PIOGLITAZONE HCL] Drug Allergy 7 Other: See Comments [facility] Work Phone: (20 sources) Simvastatin; Translations: [SIMVASTATIN] Drug Allergy 7 myalgia [facility] Work Phone: (20 sources) SITagliptin; Translations: [SITAGLIPTIN] Drug Allergy 4 Other: See Comments [facility] (20 sources) pioglitazone Drug Allergy [address] [facility] (13 sources) semaglutide; Translations: [SEMAGLUTIDE] Drug Allergy 4 GI Upset [facility] (1 source) pioglitazone Drug Allergy 5 [facility] (1 source) Simvastatin Drug Allergy 5 [facility] (1 source) SITagliptin Drug Allergy 5 [facility] Medications Current Medications Medication Drug [...] TBEC One tablet by mouth daily ASPIRIN [id number] Bernarda Kraus RN Start: 04-06-2013 take 1 [...] One tablet by mouth daily CHOLECALCIFEROL CAPS [id number] Laron Bacon MD take 1 tablet by [...] 2 Each four times da pratima. FreeStyle Troibio 14 Day Sensor kit (1 source) Start: 09-07-2023 FreeStyle Toribio 14 Day Sensor kit FreeStyle Torbiio 14 Day Sensor kit, CHANGE APPLIANCE EVERY [...] One tablet by mouth daily AMLODIPINE BESYLATE [id number] Bernarda Kraus RN amoxicillin 250 mg / [...] TABS One tablet by mouth daily ATENOLOL [id number] Bernarda Kraus RN B COMPLEX VITAMINS (2 sources) Start: 10-27-2016 take 1 tablet by mouth once daily B COMPLEX-B12 TABS One tablet by mouth daily B COMPLEX VITAMINS [id number] Laron Bacon MD B COMPLEX VITAMINS (3 sources) Start: 10-27-2016 take 1 tablet by mouth once daily B COMPLEX-B12 TABS One tablet by mouth daily B COMPLEX VITAMINS [id number] Laron Bacon MD cephalexin 500 mg oral capsule (20 sources) Cephalosporin Antibacterial Start: 10-13-2020 End: 10-18-2020 cinnamon bark 500 mg oral capsule (7 sources) Start: 10-26-2016 take 1 tablet by mouth once daily CINNAMON 500 MG CAPS One tablet by mouth daily CINNAMON [id number] Bernarda Kraus RN clopidogrel 75 mg oral tablet (20 sources) P2Y12 Platelet Inhibitor Start: 07-02-2024 End: 10-17-2024 Start: 04-24-2024 End: 06-04-2024 docusate sodium 50 mg / ino osides, custodial 8.6 mg oral tablet (20 sources) Start: [...] tablet by davin th once daily Vitamin [id number]-[id number] Acid Active 1 TABLET PO DAILY October [...] TABS One tablet by mouth daily GLIPIZIDE [id number] Bernarda Kraus RN Comment on above: Take [...] TABS One tablet by mouth daily HYDROCHLOROTHIAZIDE [id number] Laron Bacon MD sodium hypochlorite 2.5 mg/ml [...] tablet by mouth daily KRILL OIL CAPS [id number] Laron Bacon MD 3 ml liraglutide 6 mg/ml pen injector (20 sources) GLP-1 Receptor Agonist Start: 7 End: 8 Start: 05-12-2017 End: 05-04-2018 Liraglutide Discontinued SC 6 60 May 12, 2017 1:00am May 04, 2018 10:45am Start: 10-26-2016 VICTOZA TERRA jacobson s directed LIRAGLUTIDE SOLN [id number] Bernarda Kraus RN lisinopril 40 mg oral tablet (20 sources) Angiotensin Converting Enzyme Inhibitor Start: 05-12-2017 End: 05-02-2020 Start: 10-26-2016 take 1 tablet by davin th once daily ZESTRIL 40 MG TABS One tablet by mouth daily LISINOPRIL [id number] Bernarda Kraus RN menthol 0.0044 mg/mg / zinc oxide 0.206 mg/mg topical ointment (5 sources) Start: 07-20-2024 End: 01-25-2025 methylsulfonylmethane (5 sources) Start: 10-27-2016 take 1 tablet by mouth once daily [facility] MSM CAPS One tablet by mouth daily METHYLSULFONYLMETHANE CAPS [id number] Laron Bacon MD metoprolol tartrate 25 mg oral tablet (20 sources) beta-Adrenergi c Prakash Start: 04-18-2020 End: 05-02-2020 miconazole nitrate 20 mg/ml topical cream (20 sources) Azole Antifungal Start: 04-24-2024 End: 05-10-2024 nystatin [id number] unt/ml topical cream (20 sources) Polyene Antifungal [...] Acute and unspecified renal failure (20 sources) [id number] renal failure; Translations: [Acute kidney failure, unspecified] [...] 01-25-2025 Episodic Gangrene (20 sources) Atherosclerosis of [place] arteries of extremities with gangrene, right leg; Translations: [Atherosclerosis of [place] artery of right leg with [...] (4 sources) Long-term drug therapy; Translations: [Other half-way (current) drug therapy] Onset: 7 10-26-2016 Past [...] 09-22-2011 Episodic Other aftercare (3 sources) Other half-way (current) drug therapy; Translations: [Other extermination supervisor (current) drug therapy] Onset: 10-26-2016 10-26-2016 Episodic [...] 25 Femur Min [address] [facility] Orthopedic Visit Reporton Orthopedic Visit Report Normal [facility] Absolute lymphocyte countOrd ered By: Nando Wiggins on 03-12-2025 Lymphocytes Auto (Unsp spec) [#/Vol] 1.67 10*3/uL 0.83-4.51 [facility] Anion gap in Serum or Plasma Ordered By: Nando Wiggins on 03-12-2025 Anion gap [Moles/Vol] 13 mmol/L 5-15 [facility] Automated lymphocyte count a s percentage of total leukocytesOrdered By: Nando Wiggins on 03-12-2025 Lymphocytes/100 WBC Auto (Unsp spec) 21.9 % 19-41 [facility] BUN/creatinine ratioOrdered By: Nando Wiggins on 03-12-2025 Urea nitrogen/Creatinine [Mass ratio] 7.8 mg/mg Low 10-20 [facility] Basophil percentageOrdered B y: Nando Wiggins on 03-12-2025 Basophils/100 WBC (Bld) 0.8 % 0-1 [facility] Bilirubin directOrdered By: Nando Wiggins on 03-12-2025 Bilirubin.direct [Mass/Vol] 0.13 mg/dL 0.00-0.30 [facility] Bilirubin, totalOrdered By: Nando Wiggins on 03-12-2025 Bilirubin [Mass/Vol] 0.41 mg/dL 0.00-1.30 [facility] Carbon dioxide, total [Moles /volume] in Central venous bloodOrdered By: Nando Wiggins on 03-12-2025 CO2 [Moles/Vol] 27.0 mmol/L 21.0-32.0 [facility] Chloride assayOrdered By: Kathie Wiggins on 03-12-2025 Chloride [Moles/Vol] 95 mmol/L Low 98-108 [facility] Eosinophil percentageOrdered By: Nando Wiggins on 03-12-2025 Eosinophils/100 WBC (Bld) 3.1 % 0-5 [facility] Erythrocyte distribution wid th ratioOrdered By: Nando Wiggins on 03-12-2025 Erythrocyte distribution width (RBC) [Ratio] 15.5 % High 11.6-14.6 [facility] Erythrocyte distribution wid th standard deviationOrdered By: Nando Wiggins on 03-12-2025 Erythrocyte distribution width (RBC) [Ratio] 55.2 fl High 35.1-43.9 [facility] Glomerular filtration rate ( GFR) estimation/1.73 sq m using serum, plasma, or whole bOrdered By: Nando Wiggins on 03-12-2025 GFR/1.73 sq M.predicted among non-blacks MDRD (S/P/Bld) [Vol rate/Area] 8 mL/min/{1.73_m2} Low >60 [facility] Hematocrit Auto (Bld) [Volum e fraction]Ordered By: Nando Wiggins on 03-12-2025 Hematocrit (Bld) [Volume fraction] 36.5 % Low 40-54 [facility] Hemoglobin A1c percentageOrd ered By: Nando Wiggins on 03-12-2025 HbA1c (Bld) [Mass fraction] 6.6 % High <5.7 [facility] Hemoglobin measurementOrdere d By: Nando Wiggins on 03-12-2025 Hemoglobin (Bld) [Mass/Vol] 11.8 g/dL Low 13.0-16.5 [facility] Immature granulocytes/100 WB C Auto (Bld)Ordered By: Nando Wiggins on 03-12-2025 Immature granulocytes/100 WBC (Bld) 0.100 % 0.0-0.9 [facility] MCV (mean corpuscular volume ) determinationOrdered By: Nando Wiggins on 03-12-2025 MCV (RBC) [Entitic vol] 97.6 fL High 80-94 [facility] Mean corpuscular hemoglobin (MCH) determinationOrdered By: Nando Wiggins on 03-12-2025 MCH (RBC) [Entitic mass] 31.6 pg 27.0-32.0 [facility] Monocyte percentageOrdered B y: Nando Wiggins on 03-12-2025 Monocytes/100 WBC (Bld) 9.4 % 0-10 [facility] Neutrophil percentageOrdered By: Nando Wiggins on 03-12-2025 Neutrophils/100 WBC (Bld) 64.7 % 47-70 [facility] No Panel InformationOrdered By: Nando Wiggins on 03-12-2025 18 U/L <38 [facility] Platelet countOrdered By: aKthie Wiggins on 03-12-2025 Platelets (Bld) [#/Vol] 179 10*3/uL 150-450 [facility] Potassium measurement (mass/ volume)Ordered By: Nando Wiggins on 03-12-2025 Potassium (Unsp spec) [Mass/Vol] 4.2 mmol/L 3.3-5.1 [facility] RBC Auto (Bld) [#/Vol]Ordere d By: Nando Wiggins on 03-12-2025 RBC (Bld) [#/Vol] 3.74 10*6/uL Low 4.6-6.2 [facility] Serum creatinine measurement (mass/volume)Ordered By: Nando Wiggins on 03-12-2025 Creatinine [Mass/Vol] 6.36 mg/dL High 0.70-1.20 [facility] Serum globulin measurementOr dered By: Nando Wiggins on 03-12-2025 Globulin (S) [Mass/Vol] 3.0 g/dL 2.2-4.2 [facility] Serum glucose measurement (m ass/volume)Ordered By: Nando Wiggins on 03-12-2025 Glucose [Mass/Vol] 119 mg/dL High 70-99 [facility] Serum or plasma alanine hawkins otransferase (ALT) measurementOrdered By: Nando Wiggins on 03-12-2025 ALT [Catalytic activity/Vol] 8 U/L <47 [facility] Serum or plasma albumin lilli urement (mass/volume)Ordered By: Nando Wiggins on 03-12-2025 Albumin [Mass/Vol] 3.6 g/dL 3.4-4.8 [facility] Serum or plasma alkaline penelope sphatase measurementOrdered By: Nando Wiggins 03-12-2025 ALP [Catalytic activity/Vol] 67 U/L 40-129 [facility] Serum or plasma calcium lilli urement (mass/volume)Ordered By: Nando Wiggins on 03-12-2025 Calcium [Mass/Vol] 9.0 mg/dL 7.6-11.0 [facility] Serum or plasma urea nitroge n measurement (mass/volume)Ordered By: Nando Wiggins on 03-12-2025 Urea nitrogen [Mass/Vol] 49 mg/dL High 4-19 [facility] Sodium levelOrdered By: Deb Wiggins on 03-12-2025 Sodium [Moles/Vol] 135 mmol/L 133-145 [facility] Total proteinOrdered By: Sinan Wiggins on 03-12-2025 Protein [Mass/Vol] 6.6 g/dL 5.9-8.4 [facility] Vitamin B12 ser/plasOrdered By: Nando Meekcheko on 03-12-2025 Cobalamin (Vitamin B12) [Mass/Vol] 554 pg/mL 180-914 [facility] White blood cell (WBC) count Ordered By: Nando Meekcheko on 03-12-2025 WBC (Bld) [#/Vol] 7.6 10*3/uL 4.4-11.0 [facility] Absolute lymphocyte countOrd ered By: Nando Wiggins on 03-07-2025 Lymphocytes Auto (Unsp spec) [#/Vol] 1.85 10*3/uL 0.83-4.51 [facility] Anion gap in Serum or Plasma Ordered By: Nando Meekcheko on 03-07-2025 Anion gap [Moles/Vol] 15 mmol/L 5-15 [facility] Automated lymphocyte count a s percentage of total leukocytesOrdered By: Kathiebiancasrinathwolf Edenlakshmidesiree on 03-07-2025 Lymphocytes/100 WBC Auto (Unsp spec) 25.7 % 19-41 [facility] BUN/creatinine ratioOrdered By: Nando Meeklakshmidesiree on 03-07-2025 Urea nitrogen/Creatinine [Mass ratio] 7.7 mg/mg Low 10-20 [facility] Basophil percentageOrdered B y: Nando Meekcheko on 03-07-2025 Basophils/100 WBC (Bld) 0.8 % 0-[address] [facility] Carbon dioxide, total [Moles /volume] in Central venous bloodOrdered By: Kathiebiancasrinathwolf Edenlakshmidesiree on 03-07-2025 CO2 [Moles/Vol] 25.8 mmol/L 21.0-32.0 [facility] Chloride assayOrdered By: Kathie Wiggins on 03-07-2025 Chloride [Moles/Vol] 95 mmol/L Low 98-108 [facility] Eosinophil percentageOrdered By: Nando Wiggins on 03-07-2025 Eosinophils/100 WBC (Bld) 3.5 % 0-5 [facility] Erythrocyte distribution wid th ratioOrdered By: Nando Wiggins on 03-07-2025 Erythrocyte distribution width (RBC) [Ratio] 16.4 % High 11.6-14.6 [facility] Erythrocyte distribution wid th standard deviationOrdered By: Nando Wiggins on 03-07-2025 Erythrocyte distribution width (RBC) [Ratio] 59.2 fl High 35.1-43.9 [facility] Glomerular filtration rate ( GFR) estimation/1.73 sq m using serum, plasma, or whole bOrdered By: Nando Wiggins on 03-07-2025 GFR/1.73 sq M.predicted among non-blacks MDRD (S/P/Bld) [Vol rate/Area] 9 mL/min/{1.73_m2} Low >60 [facility] Hematocrit Auto (Bld) [Volum e fraction]Ordered By: Nando Wiggins on 03-07-2025 Hematocrit (Bld) [Volume fraction] 36.3 % Low 40-54 [facility] Hemoglobin measurementOrdere d By: Nando Wiggins on 03-07-2025 Hemoglobin (Bld) [Mass/Vol] 11.5 g/dL Low 13.0-16.5 [facility] Immature granulocytes/100 WB C Auto (Bld)Ordered By: Nando Wiggins on 03-07-2025 Immature granulocytes/100 WBC (Bld) 0.600 % 0.0-0.9 [facility] MCV (mean corpuscular volume ) determinationOrdered By: Nando Wiggins on 03-07-2025 MCV (RBC) [Entitic vol] 99.2 fL High 80-94 [facility] Mean corpuscular hemoglobin (MCH) determinationOrdered By: Nando Wiggins 03-07-2025 MCH (RBC) [Entitic mass] 31.4 pg 27.0-32.0 [facility] Monocyte percentageOrdered B y: Nando Wiggins on 03-07-2025 Monocytes/100 WBC (Bld) 12.8 % High 0-10 [facility] Neutrophil percentageOrdered By: Nando Wiggins on 03-07-2025 Neutrophils/100 WBC (Bld) 56.6 % 47-70 [facility] Platelet countOrdered By: Kathie Wiggins on 03-07-2025 Platelets (Bld) [#/Vol] 148 10*3/uL Low 150-450 [facility] Potassium measurement (mass/ volume)Ordered By: Nando Meekcheko on 03-07-2025 Potassium (Unsp spec) [Mass/Vol] 4.4 mmol/L 3.3-5.1 [facility] RBC Auto (Bld) [#/Vol]Ordere d By: Nando Wiggins on 03-07-2025 RBC (Bld) [#/Vol] 3.66 10*6/uL Low 4.6-6.2 [facility] Serum creatinine measurement (mass/volume)Ordered By: Nando Wiggins on 03-07-2025 Creatinine [Mass/Vol] 5.90 mg/dL High 0.70-1.20 [facility] Serum glucose measurement (m ass/volume)Ordered By: Nando Meekcheko on 03-07-2025 Glucose [Mass/Vol] 128 mg/dL High 70-99 [facility] Serum or plasma calcium lilli urement (mass/volume)Ordered By: Kathiebiancalilian Meekcheko on 03-07-2025 Calcium [Mass/Vol] 8.5 mg/dL 7.6-11.0 [facility] Serum or plasma urea nitroge n measurement (mass/volume)Ordered By: Nando Meeklakshmidesiree on 03-07-2025 Urea nitrogen [Mass/Vol] 46 mg/dL High 4-19 [facility] Sodium levelOrdered By: Deb quintana Meeklakshmidesiree on 03-07-2025 Sodium [Moles/Vol] 136 mmol/L 133-145 [facility] White blood cell (WBC) count Ordered By: Nando Wiggins on 03-07-2025 WBC (Bld) [#/Vol] 7.2 10*3/uL 4.4-11.0 [facility] Absolute lymphocyte countOrd ered By: Nando Wiggins on 02-28-2025 Lymphocytes Auto (Unsp spec) [#/Vol] 1.77 10*3/uL 0.83-4.51 [facility] Anion gap in Serum or Plasma Ordered By: Debsrinathwolf Edenlakshmidesiree on 02-28-2025 Anion gap [Moles/Vol] 11 mmol/L 5-15 [facility] Automated lymphocyte count a s percentage of total leukocytesOrdered By: Kathiebiancalilian Meeklakshmidesiree on 02-28-2025 Lymphocytes/100 WBC Auto (Unsp spec) 23.3 % 19-41 [facility] BUN/creatinine ratioOrdered By: Kathiebiancasrinathwolf Edenlakshmidesiree on 02-28-2025 Urea nitrogen/Creatinine [Mass ratio] 7.0 mg/mg Low 10-20 [facility] Basophil percentageOrdered B y: Nando Wiggins on 02-28-2025 Basophils/100 WBC (Bld) 1.2 % High 0-[address] [facility] Carbon dioxide, total [Moles /volume] in Central venous bloodOrdered By: Kathiebiancalilian Meeklakshmidesiree on 02-28-2025 CO2 [Moles/Vol] 28.4 mmol/L 21.0-32.0 [facility] Chloride assayOrdered By: Kathie fili Meeklakshmidesiree on 02-28-2025 Chloride [Moles/Vol] 96 mmol/L Low 98-108 [facility] Eosinophil percentageOrdered By: Nando Brownedesiree on 02-28-2025 Eosinophils/100 WBC (Bld) 3.3 % 0-5 [facility] Erythrocyte distribution wid th ratioOrdered By: Nando Brownedesiree on 02-28-2025 Erythrocyte distribution width (RBC) [Ratio] 16.3 % High 11.6-14.6 [facility] Erythrocyte distribution wid th standard deviationOrdered By: Nando Edenlakshmidesiree on 02-28-2025 Erythrocyte distribution width (RBC) [Ratio] 55.8 fl High 35.1-43.9 [facility] Glomerular filtration rate ( GFR) estimation/1.73 sq m using serum, plasma, or whole bOrdered By: Nando Wiggins on 02-28-2025 GFR/1.73 sq M.predicted among non-blacks MDRD (S/P/Bld) [Vol rate/Area] 9 mL/min/{1.73_m2} Low >60 [facility] Hematocrit Auto (Bld) [Volum e fraction]Ordered By: Nando Wiggins on 02-28-2025 Hematocrit (Bld) [Volume fraction] 35.3 % Low 40-54 [facility] Hemoglobin measurementOrdere d By: Nando Wiggins on 02-28-2025 Hemoglobin (Bld) [Mass/Vol] 11.1 g/dL Low 13.0-16.5 [facility] Immature granulocytes/100 WB C Auto (Bld)Ordered By: Nando Wiggins on 02-28-2025 Immature granulocytes/100 WBC (Bld) 1.800 % High 0.0-0.9 [facility] MCV (mean corpuscular volume ) determinationOrdered By: Nando Wiggins on 02-28-2025 MCV (RBC) [Entitic vol] 99.7 fL High 80-94 [facility] Mean corpuscular hemoglobin (MCH) determinationOrdered By: Nando Wiggins on 02-28-2025 MCH (RBC) [Entitic mass] 31.4 pg 27.0-32.0 [facility] Monocyte percentageOrdered B y: Nando Wiggins on 02-28-2025 Monocytes/100 WBC (Bld) 12.7 % High 0-10 [facility] Neutrophil percentageOrdered By: Nando Wiggins on 02-28-2025 Neutrophils/100 WBC (Bld) 57.7 % 47-70 [facility] Platelet countOrdered By: Kathie Wiggins on 02-28-2025 Platelets (Bld) [#/Vol] 249 10*3/uL 150-450 [facility] Potassium measurement (mass/ volume)Ordered By: Nando Wiggins on 02-28-2025 Potassium (Unsp spec) [Mass/Vol] 4.3 mmol/L 3.3-5.1 [facility] RBC Auto (Bld) [#/Vol]Ordere d By: Nando Wiggins on 02-28-2025 RBC (Bld) [#/Vol] 3.54 10*6/uL Low 4.6-6.2 [facility] Serum creatinine measurement (mass/volume)Ordered By: Nando Wiggins on 02-28-2025 Creatinine [Mass/Vol] 5.82 mg/dL High 0.70-1.20 [facility] Serum glucose measurement (m ass/volume)Ordered By: Nando Wiggins on 02-28-2025 Glucose [Mass/Vol] 197 mg/dL High 70-99 [facility] Serum or plasma calcium lilli urement (mass/volume)Ordered By: Nando Wiggins on 02-28-2025 Calcium [Mass/Vol] 9.0 mg/dL 7.6-11.0 [facility] Serum or plasma urea nitroge n measurement (mass/volume)Ordered By: Nando Wiggins on 02-28-2025 Urea nitrogen [Mass/Vol] 41 mg/dL High 4-19 [facility] Sodium levelOrdered By: Deb lilian Rosalie on 02-28-2025 Sodium [Moles/Vol] 136 mmol/L 133-145 [facility] White blood cell (WBC) count Ordered By: Nando Wiggins on 02-28-2025 WBC (Bld) [#/Vol] 7.6 10*3/uL 4.4-11.0 [facility] Femur Min 2 Viewson 02-16-20 25 Femur Min [address] [facility] Orthopedic Visit Reporton Orthopedic Visit Report Normal [facility] Absolute lymphocyte countOrd ered By: Nando Wiggins on 02-14-2025 Lymphocytes Auto (Unsp spec) [#/Vol] 1.41 10*3/uL 0.83-4.51 [facility] Anion gap in Serum or Plasma Ordered By: Nando Wiggins on 02-14-2025 Anion gap [Moles/Vol] 14 mmol/L 5-15 [facility] Automated lymphocyte count a s percentage of total leukocytesOrdered By: Nando Wiggins on 02-14-2025 Lymphocytes/100 WBC Auto (Unsp spec) 17.6 % Low 19-41 [facility] BUN/creatinine ratioOrdered By: Nando Edenlakshmidesiree on 02-14-2025 Urea nitrogen/Creatinine [Mass ratio] 8.4 mg/mg Low 10-20 [facility] Basophil percentageOrdered B y: Nando Wiggins on 02-14-2025 Basophils/100 WBC (Bld) 0.7 % 0-1 [facility] Carbon dioxide, total [Moles /volume] in Central venous bloodOrdered By: Nando Wiggins on 02-14-2025 CO2 [Moles/Vol] 25.7 mmol/L 21.0-32.0 [facility] Chloride assayOrdered By: Kathie biancalilian Wiggins on 02-14-2025 Chloride [Moles/Vol] 93 mmol/L Low 98-108 [facility] Eosinophil percentageOrdered By: Nando Edenlakshmidesiree on 02-14-2025 Eosinophils/100 WBC (Bld) 3.9 % 0-5 [facility] Erythrocyte distribution wid th ratioOrdered By: Nando Wiggins on 02-14-2025 Erythrocyte distribution width (RBC) [Ratio] 15.6 % High 11.6-14.6 [facility] Erythrocyte distribution wid th standard deviationOrdered By: Nando Wiggins on 02-14-2025 Erythrocyte distribution width (RBC) [Ratio] 52.3 fl High 35.1-43.9 [facility] Glomerular filtration rate ( GFR) estimation/1.73 sq m using serum, plasma, or whole bOrdered By: Nando Wiggins on 02-14-2025 GFR/1.73 sq M.predicted among non-blacks MDRD (S/P/Bld) [Vol rate/Area] 10 mL/min/{1.73_m2} Low >60 [facility] Hematocrit Auto (Bld) [Volum e fraction]Ordered By: Nando Wiggins on 02-14-2025 Hematocrit (Bld) [Volume fraction] 28.6 % Low 40-54 [facility] Hemoglobin measurementOrdere d By: Nando Wiggins on 02-14-2025 Hemoglobin (Bld) [Mass/Vol] 9.3 g/dL Low 13.0-16.5 [facility] Immature granulocytes/100 WB C Auto (Bld)Ordered By: Kathiebiancalilian Meeklakshmidesiree on 02-14-2025 Immature granulocytes/100 WBC (Bld) 1.100 % High 0.0-0.9 [facility] MCV (mean corpuscular volume ) determinationOrdered By: Kathiebiancasrinathwolf Edenlakshmidesiree on 02-14-2025 MCV (RBC) [Entitic vol] 96.6 fL High 80-94 [facility] Mean corpuscular hemoglobin (MCH) determinationOrdered By: Kathiefili Edenlakshmidesiree on 02-14-2025 MCH (RBC) [Entitic mass] 31.4 pg 27.0-32.0 [facility] Monocyte percentageOrdered B y: Nando Meekcheko on 02-14-2025 Monocytes/100 WBC (Bld) 11.6 % High 0-10 [facility] Neutrophil percentageOrdered By: fili Wiggins on 02-14-2025 Neutrophils/100 WBC (Bld) 65.1 % 47-70 [facility] Platelet countOrdered By: Kathie fili Wiggins on 02-14-2025 Platelets (Bld) [#/Vol] 233 10*3/uL 150-450 [facility] Potassium measurement (mass/ volume)Ordered By: Kathiebiancalilian Meeklakshmidesiree on 02-14-2025 Potassium (Unsp spec) [Mass/Vol] 4.5 mmol/L 3.3-5.1 [facility] RBC Auto (Bld) [#/Vol]Ordere d By: Nando Wiggins on 02-14-2025 RBC (Bld) [#/Vol] 2.96 10*6/uL Low 4.6-6.2 [facility] Serum creatinine measurement (mass/volume)Ordered By: Kathiefili Edenlakshmidesiree on 02-14-2025 Creatinine [Mass/Vol] 5.03 mg/dL High 0.70-1.20 [facility] Serum glucose measurement (m ass/volume)Ordered By: Nando Wiggins on 02-14-2025 Glucose [Mass/Vol] 130 mg/dL High 70-99 [facility] Serum or plasma calcium lilli urement (mass/volume)Ordered By: Nando Wiggins on 02-14-2025 Calcium [Mass/Vol] 8.7 mg/dL 7.6-11.0 [facility] Serum or plasma urea nitroge n measurement (mass/volume)Ordered By: Nando Wiggins on 02-14-2025 Urea nitrogen [Mass/Vol] 42 mg/dL High 4-19 [facility] Sodium levelOrdered By: Kathie lilian Rosalie on 02-14-2025 Sodium [Moles/Vol] 133 mmol/L 133-145 [facility] White blood cell (WBC) count Ordered By: Nando Wiggins on 02-14-2025 WBC (Bld) [#/Vol] 8.0 10*3/uL 4.4-11.0 [facility] Absolute lymphocyte countOrd ered By: Nando Wiggins on 02-12-2025 Lymphocytes Auto (Unsp spec) [#/Vol] 1.23 10*3/uL 0.83-4.51 [facility] Anion gap in Serum or Plasma Ordered By: Nando Wiggins on 02-12-2025 Anion gap [Moles/Vol] 14 mmol/L 5-15 [facility] Automated lymphocyte count a s percentage of total leukocytesOrdered By: Nando Wiggins on 02-12-2025 Lymphocytes/100 WBC Auto (Unsp spec) 13.9 % Low 19-41 [facility] BUN/creatinine ratioOrdered By: Nando Wiggins on 02-12-2025 Urea nitrogen/Creatinine [Mass ratio] 10.1 mg/mg 10-20 [facility] Basophil percentageOrdered B y: Nando Wiggins on 02-12-2025 Basophils/100 WBC (Bld) 0.7 % 0-1 [facility] Carbon dioxide, total [Moles /volume] in Central venous bloodOrdered By: Nando Wiggins on 02-12-2025 CO2 [Moles/Vol] 25.3 mmol/L 21.0-32.0 [facility] Chloride assayOrdered By: Kathie Wiggins on 02-12-2025 Chloride [Moles/Vol] 92 mmol/L Low 98-108 [facility] Eosinophil percentageOrdered By: Nando Wiggins on 02-12-2025 Eosinophils/100 WBC (Bld) 2.9 % 0-5 [facility] Erythrocyte distribution wid th ratioOrdered By: Nando Wiggins on 02-12-2025 Erythrocyte distribution width (RBC) [Ratio] 15.0 % High 11.6-14.6 [facility] Erythrocyte distribution wid th standard deviationOrdered By: Nando Wiggins on 02-12-2025 Erythrocyte distribution width (RBC) [Ratio] 51.9 fl High 35.1-43.9 [facility] Glomerular filtration rate ( GFR) estimation/1.73 sq m using serum, plasma, or whole bOrdered By: Nando Wiggins on 02-12-2025 GFR/1.73 sq M.predicted among non-blacks MDRD (S/P/Bld) [Vol rate/Area] 9 mL/min/{1.73_m2} Low >60 [facility] Hematocrit Auto (Bld) [Volum e fraction]Ordered By: Nando Wiggins on 02-12-2025 Hematocrit (Bld) [Volume fraction] 29.8 % Low 40-54 [facility] Hemoglobin measurementOrdere d By: Nando Wiggins on 02-12-2025 Hemoglobin (Bld) [Mass/Vol] 9.4 g/dL Low 13.0-16.5 [facility] Immature granulocytes/100 WB C Auto (Bld)Ordered By: Nando Wiggins on 02-12-2025 Immature granulocytes/100 WBC (Bld) 1.500 % High 0.0-0.9 [facility] MCV (mean corpuscular volume ) determinationOrdered By: Nando Wiggins on 02-12-2025 MCV (RBC) [Entitic vol] 96.8 fL High 80-94 [facility] Mean corpuscular hemoglobin (MCH) determinationOrdered By: Nando Wiggins on 02-12-2025 MCH (RBC) [Entitic mass] 30.5 pg 27.0-32.0 [facility] Monocyte percentageOrdered B y: Nando Wiggins on 02-12-2025 Monocytes/100 WBC (Bld) 9.7 % 0-10 [facility] Neutrophil percentageOrdered By: Nando Wiggins on 02-12-2025 Neutrophils/100 WBC (Bld) 71.3 % High 47-70 [facility] Platelet countOrdered By: Kathie Wiggins on 02-12-2025 Platelets (Bld) [#/Vol] 238 10*3/uL 150-450 [facility] Potassium measurement (mass/ volume)Ordered By: Nando Wiggins on 02-12-2025 Potassium (Unsp spec) [Mass/Vol] 4.5 mmol/L 3.3-5.1 [facility] RBC Auto (Bld) [#/Vol]Ordere d By: Nando Wiggins on 02-12-2025 RBC (Bld) [#/Vol] 3.08 10*6/uL Low 4.6-6.2 [facility] Serum creatinine measurement (mass/volume)Ordered By: Nando Wiggins on 02-12-2025 Creatinine [Mass/Vol] 5.63 mg/dL High 0.70-1.20 [facility] Serum glucose measurement (m ass/volume)Ordered By: Nando Wiggins on 02-12-2025 Glucose [Mass/Vol] 173 mg/dL High 70-99 [facility] Serum or plasma calcium lilli urement (mass/volume)Ordered By: Nando Wiggins on 02-12-2025 Calcium [Mass/Vol] 8.8 mg/dL 7.6-11.0 [facility] Serum or plasma urea nitroge n measurement (mass/volume)Ordered By: Nando Wiggins on 02-12-2025 Urea nitrogen [Mass/Vol] 57 mg/dL High 4-19 [facility] Sodium levelOrdered By: Deb Wiggins on 02-12-2025 Sodium [Moles/Vol] 132 mmol/L Low 133-145 [facility] White blood cell (WBC) count Ordered By: Nando Wiggins on 02-12-2025 WBC (Bld) [#/Vol] 8.9 10*3/uL 4.4-11.0 [facility] Absolute lymphocyte countOrd ered By: Nando Edenlakshmidesiree on 02-07-2025 Lymphocytes Auto (Unsp spec) [#/Vol] 1.40 10*3/uL 0.83-4.51 [facility] Anion gap in Serum or Plasma Ordered By: Nando Wiggins on 02-07-2025 Anion gap [Moles/Vol] 15 mmol/L 5-15 [facility] Automated lymphocyte count a s percentage of total leukocytesOrdered By: Nando Wiggins on 02-07-2025 Lymphocytes/100 WBC Auto (Unsp spec) 15.7 % Low 19-41 [facility] BUN/creatinine ratioOrdered By: Nando Wiggins on 02-07-2025 Urea nitrogen/Creatinine [Mass ratio] 9.5 mg/mg Low 10-20 [facility] Basophil percentageOrdered B y: Nando Wiggins on 02-07-2025 Basophils/100 WBC (Bld) 0.6 % 0-[address] [facility] Carbon dioxide, total [Moles /volume] in Central venous bloodOrdered By: Nando Wiggins on 02-07-2025 CO2 [Moles/Vol] 25.0 mmol/L 21.0-32.0 [facility] Chloride assayOrdered By: Kathie Wiggins on 02-07-2025 Chloride [Moles/Vol] 93 mmol/L Low 98-108 [facility] Eosinophil percentageOrdered By: fili Wiggins on 02-07-2025 Eosinophils/100 WBC (Bld) 3.5 % 0-5 [facility] Erythrocyte distribution wid th ratioOrdered By: Nando Wiggins on 02-07-2025 Erythrocyte distribution width (RBC) [Ratio] 15.1 % High 11.6-14.6 [facility] Erythrocyte distribution wid th standard deviationOrdered By: Nando Wiggins on 02-07-2025 Erythrocyte distribution width (RBC) [Ratio] 53.2 fl High 35.1-43.9 [facility] Glomerular filtration rate ( GFR) estimation/1.73 sq m using serum, plasma, or whole bOrdered By: Kathiebiancasrinathwolf Edenlakshmidesiree on 02-07-2025 GFR/1.73 sq M.predicted among non-blacks MDRD (S/P/Bld) [Vol rate/Area] 9 mL/min/{1.73_m2} Low >60 [facility] Hematocrit Auto (Bld) [Volum e fraction]Ordered By: Nando Wiggins on 02-07-2025 Hematocrit (Bld) [Volume fraction] 28.2 % Low 40-54 [facility] Hemoglobin measurementOrdere d By: Debsrinathwolf Edenlakshmidesiree on 02-07-2025 Hemoglobin (Bld) [Mass/Vol] 9.0 g/dL Low 13.0-16.5 [facility] Immature granulocytes/100 WB C Auto (Bld)Ordered By: Nando Wiggins on 02-07-2025 Immature granulocytes/100 WBC (Bld) 0.700 % 0.0-0.9 [facility] MCV (mean corpuscular volume ) determinationOrdered By: Nando Wiggins on 02-07-2025 MCV (RBC) [Entitic vol] 96.6 fL High 80-94 [facility] Mean corpuscular hemoglobin (MCH) determinationOrdered By: Nando Edenlakshmidesiree on 02-07-2025 MCH (RBC) [Entitic mass] 30.8 pg 27.0-32.0 [facility] Monocyte percentageOrdered B y: Nando Wiggins on 02-07-2025 Monocytes/100 WBC (Bld) 9.7 % 0-10 [facility] Neutrophil percentageOrdered By: Nando Edenlakshmidesiree on 02-07-2025 Neutrophils/100 WBC (Bld) 69.8 % 47-70 [facility] Platelet countOrdered By: Kathie rehanwolf Edenlakshmidesiree on 02-07-2025 Platelets (Bld) [#/Vol] 231 10*3/uL 150-450 [facility] Potassium measurement (mass/ volume)Ordered By: Nando Wiggins on 02-07-2025 Potassium (Unsp spec) [Mass/Vol] 4.7 mmol/L 3.3-5.1 [facility] RBC Auto (Bld) [#/Vol]Ordere d By: Kathiebiancasrinathwolf Wiggins on 02-07-2025 RBC (Bld) [#/Vol] 2.92 10*6/uL Low 4.6-6.2 [facility] Serum creatinine measurement (mass/volume)Ordered By: Nando Wiggins on 02-07-2025 Creatinine [Mass/Vol] 5.66 mg/dL High 0.70-1.20 [facility] Serum glucose measurement (m ass/volume)Ordered By: Nando Wiggins on 02-07-2025 Glucose [Mass/Vol] 178 mg/dL High 70-99 [facility] Serum or plasma calcium lilli urement (mass/volume)Ordered By: Nando Wiggins on 02-07-2025 Calcium [Mass/Vol] 8.8 mg/dL 7.6-11.0 [facility] Serum or plasma urea nitroge n measurement (mass/volume)Ordered By: Nando Wiggins on 02-07-2025 Urea nitrogen [Mass/Vol] 54 mg/dL High - [facility] Sodium levelOrdered By: Deb quintana Meeklakshmidesiree on 02-07-2025 Sodium [Moles/Vol] 133 mmol/L 133-145 [facility] White blood cell (WBC) count Ordered By: Nando Wiggins on 02-07-2025 WBC (Bld) [#/Vol] 8.9 10*3/uL 4.4-11.0 [facility] Basic Metabolic Profile (BMP )on 02-03-2025 BUN Normal - [facility] Comment on above: Result Comment: Solomon eason via OM: Order cancelled - Patient discharged Performed By: #### L 500.2500, L100.0100 ####[facility] [address] [place], [place], [address] BUN/CRE Normal - [facility] Comment on above: Result Comment: Canc elled via OM: Order cancelled - Patient discharged Performed By: #### L 500.2500, L100.0100 ####[facility] [address] [place], [address] Calcium Normal 7.6-11.0 [facility] Comment on above: Result Comment: Canc elled via OM: Order cancelled - Patient discharged Performed By: #### L 500.2500, L100.0100 ####[facility] [address] [place], [address] CL Normal 98-108 [facility] Comment on above: Result Comment: Canc elled via OM: Order cancelled - Patient discharged Performed By: #### L 500.2500, L100.0100 ####[facility] [address] [place], [address] CO2 Normal 21.0-32.0 [facility] Comment on above: Result Comment: Canc elled via OM: Order cancelled - Patient discharged Performed By: #### L 500.2500, L100.0100 ####[facility] [address] [place], [address] CREAT,SERUM Normal 0.70-1.20 [facility] Comment on above: Result Comment: Canc elled via OM: Order cancelled - Patient discharged Performed By: #### L 500.2500, L100.0100 ####[facility] [address] [place], [address] eGFR Normal >60 [facility] Comment on above: Result Comment: Canc elled via OM: Order cancelled - Patient discharged Performed By: #### L 500.2500, L100.0100 ####[facility] [address] [place], [address] GAP Normal 5-15 [facility] Comment on above: Result Comment: Canc elled via OM: Order cancelled - Patient discharged Performed By: #### L 500.2500, L100.0100 ####[facility] [address] [place], [address] GLU Normal 70-99 [facility] Comment on above: Result Comment: Canc elled via OM: Order cancelled - Patient discharged Performed By: #### L 500.2500, L100.0100 ####[facility] [address] [place], [address] Potassium Normal 3.3-5.1 [facility] Comment on above: Result Comment: Canc elled via OM: Order cancelled - Patient discharged Performed By: #### L 500.2500, L100.0100 ####[facility] [address] [place], [address] Basic Metabolic Profile (BMP) Normal 133-145 [facility] Comment on above: Result Comment: Canc elled via OM: Order cancelled - Patient discharged Performed By: #### L 500.2500, L100.0100 ####[facility] [address] [place], [address] CBC W/Diff, Automatedon 09-1 Absolute Neut Normal 2.0-7.7 [facility] Comment on above: Result Comment: Canc elled via OM: Order cancelled - Patient discharged Performed By: #### L 500.2500, L100.0100 ####[facility] [address] [place], [address] HCT Normal 40-54 [facility] Comment on above: Result Comment: Canc elled via OM: Order cancelled - Patient discharged Performed By: #### L 500.2500, L100.0100 ####[facility] [address] [place], [address] HGB Normal 13.0-16.5 [facility] Comment on above: Result Comment: Canc elled via OM: Order cancelled - Patient discharged Performed By: #### L 500.2500, L100.0100 ####[facility] [address] [place], [address] MCH Normal 27.0-32.0 [facility] Comment on above: Result Comment: Canc elled via OM: Order cancelled - Patient discharged Performed By: #### L 500.2500, L100.0100 ####[facility] [address] [place], [address] MCHC Normal 32-36 [facility] Comment on above: Result Comment: Canc elled via OM: Order cancelled - Patient discharged Performed By: #### L 500.2500, L100.0100 ####[facility] [address] [place], [address] MCV Normal 80-94 [facility] Comment on above: Result Comment: Canc elled via OM: Order cancelled - Patient discharged Performed By: #### L 500.2500, L100.0100 ####[facility] [address] [place], [address] NEUT% Normal 47-70 [facility] Comment on above: Result Comment: Canc elled via OM: Order cancelled - Patient discharged Performed By: #### L 500.2500, L100.0100 ####[facility] [address] [place], [address] PLT Normal 150-450 [facility] Comment on above: Result Comment: Canc elled via OM: Order cancelled - Patient discharged Performed By: #### L 500.2500, L100.0100 ####[facility] [address] [place], [address] RBC Normal 4.6-6.2 [facility] Comment on above: Result Comment: Canc elled via OM: Order cancelled - Patient discharged Performed By: #### L 500.2500, L100.0100 ####[facility] [address] [place], [address] RDW CV Normal 11.6-14.6 [facility] Comment on above: Result Comment: Canc elled via OM: Order cancelled - Patient discharged Performed By: #### L 500.2500, L100.0100 ####[facility] [address] [place], [address] RDW SD Normal 35.1-43.9 [facility] Comment on above: Result Comment: Canc elled via OM: Order cancelled - Patient discharged Performed By: #### L 500.2500, L100.0100 ####[facility] [address] [place], [address] WBC Normal 4.4-11.0 [facility] Comment on above: Result Comment: Canc elled via OM: Order cancelled - Patient discharged Performed By: #### L 500.2500, L100.0100 ####[facility] [address] [place], [address] Basic Metabolic Profile (BMP )on 02-02-2025 BUN Normal 4-19 [facility] Comment on above: Result Comment: Canc elled via OM: Order cancelled - Patient discharged Performed By: #### L 500.2500, L100.0100 ####[facility] [address] [place], [address] BUN/CRE Normal 10-20 [facility] Comment on above: Result Comment: Canc elled via OM: Order cancelled - Patient discharged Performed By: #### L 500.2500, L100.0100 ####[facility] [address] [place], [address] Calcium Normal 7.6-11.0 [facility] Comment on above: Result Comment: Canc elled via OM: Order cancelled - Patient discharged Performed By: #### L 500.2500, L100.0100 ####[facility] [address] [place], [address] CL Normal 98-108 [facility] Comment on above: Result Comment: Canc elled via OM: Order cancelled - Patient discharged Performed By: #### L 500.2500, L100.0100 ####[facility] [address] [place], [address] CO2 Normal 21.0-32.0 [facility] Comment on above: Result Comment: Canc elled via OM: Order cancelled - Patient discharged Performed By: #### L 500.2500, L100.0100 ####[facility] [address] [place], [address] CREAT,SERUM Normal 0.70-1.20 [facility] Comment on above: Result Comment: Canc elled via OM: Order cancelled - Patient discharged Performed By: #### L 500.2500, L100.0100 ####[facility] [address] [place], [address] eGFR Normal >60 [facility] Comment on above: Result Comment: Canc elled via OM: Order cancelled - Patient discharged Performed By: #### L 500.2500, L100.0100 ####[facility] [address] [place], [address] GAP Normal 5-15 [facility] Comment on above: Result Comment: Canc elled via OM: Order cancelled - Patient discharged Performed By: #### L 500.2500, L100.0100 ####[facility] [address] [place], [address] GLU Normal 70-99 [facility] Comment on above: Result Comment: Canc elled via OM: Order cancelled - Patient discharged Performed By: #### L 500.2500, L100.0100 ####[facility] [address] [place], [address] Potassium Normal 3.3-5.1 [facility] Comment on above: Result Comment: Canc elled via OM: Order cancelled - Patient discharged Performed By: #### L 500.2500, L100.0100 ####[facility] [address] [place], [address] Basic Metabolic Profile (BMP) Normal 133-145 [facility] Comment on above: Result Comment: Canc elled via OM: Order cancelled - Patient discharged Performed By: #### L 500.2500, L100.0100 ####[facility] [address] [place], [address] CBC W/Diff, Automatedon - Absolute Neut Normal 2.0-7.7 [facility] Comment on above: Result Comment: Canc elled via OM: Order cancelled - Patient discharged Performed By: #### L 500.2500, L100.0100 ####[facility] [address] [place], [address] HCT Normal 40-54 [facility] Comment on above: Result Comment: Canc elled via OM: Order cancelled - Patient discharged Performed By: #### L 500.2500, L100.0100 ####[facility] [address] [place], [address] HGB Normal 13.0-16.5 [facility] Comment on above: Result Comment: Canc elled via OM: Order cancelled - Patient discharged Performed By: #### L 500.2500, L100.0100 ####[facility] [address] [place], [address] MCH Normal 27.0-32.0 [facility] Comment on above: Result Comment: Canc elled via OM: Order cancelled - Patient discharged Performed By: #### L 500.2500, L100.0100 ####[facility] [address] [place], [address] MCHC Normal 32-36 [facility] Comment on above: Result Comment: Canc elled via OM: Order cancelled - Patient discharged Performed By: #### L 500.2500, L100.0100 ####[facility] [address] [place], [address] MCV Normal 80-94 [facility] Comment on above: Result Comment: Canc elled via OM: Order cancelled - Patient discharged Performed By: #### L 500.2500, L100.0100 ####[facility] [address] [place], [address] NEUT% Normal 47-70 [facility] Comment on above: Result Comment: Canc elled via OM: Order cancelled - Patient discharged Performed By: #### L 500.2500, L100.0100 ####[facility] [address] [place], [address] PLT Normal 150-450 [facility] Comment on above: Result Comment: Canc elled via OM: Order cancelled - Patient discharged Performed By: #### L 500.2500, L100.0100 ####[facility] [address] [place], [address] RBC Normal 4.6-6.2 [facility] Comment on above: Result Comment: Canc elled via OM: Order cancelled - Patient discharged Performed By: #### L 500.2500, L100.0100 ####[facility] [address] [place], [address] RDW CV Normal 11.6-14.6 [facility] Comment on above: Result Comment: Canc elled via OM: Order cancelled - Patient discharged Performed By: #### L 500.2500, L100.0100 ####[facility] [facility] [address] [place], [address] RDW SD Normal 35.1-43.9 [facility] Comment on above: Result Comment: Canc elled via OM: Order cancelled - Patient discharged Performed By: #### L 500.2500, L100.0100 ####[facility] [address] [place], [address] WBC Normal 4.4-11.0 [facility] Comment on above: Result Comment: Canc elled via OM: Order cancelled - Patient discharged Performed By: #### L 500.2500, L100.0100 ####[facility] [address] [place], [address] Absolute lymphocyte countOrd ered By: Nando Wiggins on 02-01-2025 Lymphocytes Auto (Unsp spec) [#/Vol] 1.24 10*3/uL 0.83-4.51 [facility] Anion gap in Serum or Plasma Ordered By: Debcincinnatiwolf Wiggins on 02-01-2025 Anion gap [Moles/Vol] 15 mmol/L 5-15 [facility] Automated lymphocyte count a s percentage of total leukocytesOrdered By: Nando Wiggins on 02-01-2025 Lymphocytes/100 WBC Auto (Unsp spec) 18.4 % Low 19-41 [facility] BUN/creatinine ratioOrdered By: Nando Wiggins on 02-01-2025 Urea nitrogen/Creatinine [Mass ratio] 10.9 mg/mg 10- [facility] Basic Metabolic Profile (BMP )on 02-01-2025 BUN Normal 4-19 [facility] Comment on above: Result Comment: Canc elled via OM: Order cancelled - Patient discharged Performed By: #### L 500.2500, L100.0100 ####[facility] [address] [place], [address] BUN/CRE Normal 10-20 [facility] Comment on above: Result Comment: Canc elled via OM: Order cancelled - Patient discharged Performed By: #### L 500.2500, L100.0100 ####[facility] [address] [place], [address] Calcium Normal 7.6-11.0 [facility] Comment on above: Result Comment: Canc elled via OM: Order cancelled - Patient discharged Performed By: #### L 500.2500, L100.0100 ####[facility] [address] [place], [address] CL Normal 98-108 [facility] Comment on above: Result Comment: Canc elled via OM: Order cancelled - Patient discharged Performed By: #### L 500.2500, L100.0100 ####[facility] [address] [place], [address] CO2 Normal 21.0-32.0 [facility] Comment on above: Result Comment: Canc elled via OM: Order cancelled - Patient discharged Performed By: #### L 500.2500, L100.0100 ####[facility] [address] [place], [address] CREAT,SERUM Normal 0.70-1.20 [facility] Comment on above: Result Comment: Canc elled via OM: Order cancelled - Patient discharged Performed By: #### L 500.2500, L100.0100 ####[facility] [address] [place], [address] eGFR Normal >60 [facility] Comment on above: Result Comment: Canc elled via OM: Order cancelled - Patient discharged Performed By: #### L 500.2500, L100.0100 ####[facility] [address] [place], [address] GAP Normal 5-15 [facility] Comment on above: Result Comment: Canc elled via OM: Order cancelled - Patient discharged Performed By: #### L 500.2500, L100.0100 ####[facility] [address] [place], [address] GLU Normal 70-99 [facility] Comment on above: Result Comment: Canc elled via OM: Order cancelled - Patient discharged Performed By: #### L 500.2500, L100.0100 ####[facility] [address] [place], [address] Potassium Normal 3.3-5.1 [facility] Comment on above: Result Comment: Canc elled via OM: Order cancelled - Patient discharged Performed By: #### L 500.2500, L100.0100 ####[facility] [address] [place], [address] Basic Metabolic Profile (BMP) Normal 133-145 [facility] Comment on above: Result Comment: Canc elled via OM: Order cancelled - Patient discharged Performed By: #### L 500.2500, L100.0100 ####[facility] [address] [place], [address] Basophil percentageOrdered B y: Effili Brownee on 02-01-2025 Basophils/100 WBC (Bld) 0.7 % 0-1 [facility] CBC W/Diff, Automatedon 01-21 Absolute Neut Normal 2.0-7.7 [facility] Comment on above: Result Comment: Canc elled via OM: Order cancelled - Patient discharged Performed By: #### L 500.2500, L100.0100 ####[facility] [address] [place], [address] HCT Normal 40-54 [facility] Comment on above: Result Comment: Canc elled via OM: Order cancelled - Patient discharged Performed By: #### L 500.2500, L100.0100 ####[facility] [address] [place], [address] HGB Normal 13.0-16.5 [facility] Comment on above: Result Comment: Canc elled via OM: Order cancelled - Patient discharged Performed By: #### L 500.2500, L100.0100 ####[facility] [address] [place], [address] MCH Normal 27.0-32.0 [facility] Comment on above: Result Comment: Canc elled via OM: Order cancelled - Patient discharged Performed By: #### L 500.2500, L100.0100 ####[facility] [address] [place], [address] MCHC Normal 32-36 [facility] Comment on above: Result Comment: Canc elled via OM: Order cancelled - Patient discharged Performed By: #### L 500.2500, L100.0100 ####[facility] [address] [place], [address] MCV Normal 80-94 [facility] Comment on above: Result Comment: Canc elled via OM: Order cancelled - Patient discharged Performed By: #### L 500.2500, L100.0100 ####[facility] [address] [place], [address] NEUT% Normal 47-70 [facility] Comment on above: Result Comment: Canc elled via OM: Order cancelled - Patient discharged Performed By: #### L 500.2500, L100.0100 ####[facility] [address] [place], [address] PLT Normal 150-450 [facility] Comment on above: Result Comment: Canc elled via OM: Order cancelled - Patient discharged Performed By: #### L 500.2500, L100.0100 ####[facility] [address] [place], [address] RBC Normal 4.6-6.2 [facility] Comment on above: Result Comment: Canc elled via OM: Order cancelled - Patient discharged Performed By: #### L 500.2500, L100.0100 ####[facility] [address] [place], [address] RDW CV Normal 11.6-14.6 [facility] Comment on above: Result Comment: Canc elled via OM: Order cancelled - Patient discharged Performed By: #### L 500.2500, L100.0100 ####[facility] [address] [place], [address] RDW SD Normal 35.1-43.9 [facility] Comment on above: Result Comment: Canc elled via OM: Order cancelled - Patient discharged Performed By: #### L 500.2500, L100.0100 ####[facility] [address] [place], [address] WBC Normal 4.4-11.0 [facility] Comment on above: Result Comment: Canc elled via OM: Order cancelled - Patient discharged Performed By: #### L 500.2500, L100.0100 ####[facility] [address] [place], [address] Carbon dioxide, total [Moles /volume] in Central venous bloodOrdered By: Nando Wiggins on 02-01-2025 CO2 [Moles/Vol] 25.4 mmol/L 21.0-32.0 [facility] Chloride assayOrdered By: Kathie Wiggins on 02-01-2025 Chloride [Moles/Vol] 95 mmol/L Low 98-108 [facility] Eosinophil percentageOrdered By: Nando Wiggins on 02-01-2025 Eosinophils/100 WBC (Bld) 3.7 % 0-5 [facility] Erythrocyte distribution wid th ratioOrdered By: Nando Wiggins on 02-01-2025 Erythrocyte distribution width (RBC) [Ratio] 16.1 % High 11.6-14.6 [facility] Erythrocyte distribution wid th standard deviationOrdered By: Nando Wiggins on 02-01-2025 Erythrocyte distribution width (RBC) [Ratio] 54.7 fl High 35.1-43.9 [facility] Glomerular filtration rate ( GFR) estimation/1.73 sq m using serum, plasma, or whole bOrdered By: Nando Wiggins on 02-01-2025 GFR/1.73 sq M.predicted among non-blacks MDRD (S/P/Bld) [Vol rate/Area] 13 mL/min/{1.73_m2} Low >60 [facility] Hematocrit Auto (Bld) [Volum e fraction]Ordered By: Nando Brownedesiree on 02-01-2025 Hematocrit (Bld) [Volume fraction] 28.5 % Low 40-54 [facility] Hemoglobin measurementOrdere d By: Nando Wiggins on 02-01-2025 Hemoglobin (Bld) [Mass/Vol] 9.4 g/dL Low 13.0-16.5 [facility] Immature granulocytes/100 WB C Auto (Bld)Ordered By: biancalilian Meeklakshmidesiree on 02-01-2025 Immature granulocytes/100 WBC (Bld) 0.900 % 0.0-0.9 [facility] MCV (mean corpuscular volume ) determinationOrdered By: Nando Meeklakshmidesiree on 02-01-2025 MCV (RBC) [Entitic vol] 94.7 fL High 80-94 [facility] Mean corpuscular hemoglobin (MCH) determinationOrdered By: biancalilian Meeklakshmidesiree on 02-01-2025 MCH (RBC) [Entitic mass] 31.2 pg 27.0-32.0 [facility] Monocyte percentageOrdered B y: Nando Wiggins on 02-01-2025 Monocytes/100 WBC (Bld) 15.3 % High 0-10 [facility] Neutrophil percentageOrdered By: biancacincinnatiwolf Meekcheko on 02-01-2025 Neutrophils/100 WBC (Bld) 61.0 % 47-70 [facility] Platelet countOrdered By: Kathie Wiggins on 02-01-2025 Platelets (Bld) [#/Vol] 178 10*3/uL 150-450 [facility] Potassium measurement (mass/ volume)Ordered By: Nando Wiggins on 02-01-2025 Potassium (Unsp spec) [Mass/Vol] 4.5 mmol/L 3.3-5.1 [facility] RBC Auto (Bld) [#/Vol]Ordere d By: Nando Meekcheko on 02-01-2025 RBC (Bld) [#/Vol] 3.01 10*6/uL Low 4.6-6.2 [facility] Serum creatinine measurement (mass/volume)Ordered By: Kathiebiancasrinathwolf Wiggins on 02-01-2025 Creatinine [Mass/Vol] 4.22 mg/dL High 0.70-1.20 [facility] Serum glucose measurement (m ass/volume)Ordered By: Kathiefili Wiggins on 02-01-2025 Glucose [Mass/Vol] 221 mg/dL High 70-99 [facility] Serum or plasma calcium lilli urement (mass/volume)Ordered By: Kathiefili Wiggins on 02-01-2025 Calcium [Mass/Vol] 8.2 mg/dL 7.6-11.0 [facility] Serum or plasma urea nitroge n measurement (mass/volume)Ordered By: Kathiebiancacincinnatiwolf Wiggins on 02-01-2025 Urea nitrogen [Mass/Vol] 46 mg/dL High 4-19 [facility] Sodium levelOrdered By: Deb quintana Meeklakshmidesiree on 02-01-2025 Sodium [Moles/Vol] 135 mmol/L 133-145 [facility] White blood cell (WBC) count Ordered By: Kathiebiancasrinathwolf Wiggins on 02-01-2025 WBC (Bld) [#/Vol] 6.7 10*3/uL 4.4-11.0 [facility] Basic Metabolic Profile (BMP )on 01-31-2025 BUN Normal 4-19 [facility] Comment on above: Result Comment: Canc elled via OM: Order cancelled - Patient discharged Performed By: #### L 500.2500, L100.0100 ####[facility] [address] [place], [address] BUN/CRE Normal 10-20 [facility] Comment on above: Result Comment: Canc elled via OM: Order cancelled - Patient discharged Performed By: #### L 500.2500, L100.0100 ####[facility] [address] [place], [address] Calcium Normal 7.6-11.0 [facility] Comment on above: Result Comment: Canc elled via OM: Order cancelled - Patient discharged Performed By: #### L 500.2500, L100.0100 ####[facility] [address] [place], [address] CL Normal 98-108 [facility] Comment on above: Result Comment: Canc elled via OM: Order cancelled - Patient discharged Performed By: #### L 500.2500, L100.0100 ####[facility] [address] [place], [address] CO2 Normal 21.0-32.0 [facility] Comment on above: Result Comment: Canc elled via OM: Order cancelled - Patient discharged Performed By: #### L 500.2500, L100.0100 ####[facility] [address] [place], [address] CREAT,SERUM Normal 0.70-1.20 [facility] Comment on above: Result Comment: Canc elled via OM: Order cancelled - Patient discharged Performed By: #### L 500.2500, L100.0100 ####[facility] [address] [place], [address] eGFR Normal >60 [facility] Comment on above: Result Comment: Canc elled via OM: Order cancelled - Patient discharged Performed By: #### L 500.2500, L100.0100 ####[facility] [address] [place], [address] GAP Normal 5-15 [facility] Comment on above: Result Comment: Canc elled via OM: Order cancelled - Patient discharged Performed By: #### L 500.2500, L100.0100 ####[facility] [address] [place], [address] GLU Normal 70-99 [facility] Comment on above: Result Comment: Canc elled via OM: Order cancelled - Patient discharged Performed By: #### L 500.2500, L100.0100 ####[facility] [address] [place], [address] Potassium Normal 3.3-5.1 [facility] Comment on above: Result Comment: Canc elled via OM: Order cancelled - Patient discharged Performed By: #### L 500.2500, L100.0100 ####[facility] [address] [place], [address] Basic Metabolic Profile (BMP) Normal 133-145 [facility] Comment on above: Result Comment: Canc elled via OM: Order cancelled - Patient discharged Performed By: #### L 500.2500, L100.0100 ####[facility] [address] [place], [address] CBC W/Diff, Automatedon 09- Absolute Neut Normal 2.0-7.7 [facility] Comment on above: Result Comment: Canc elled via OM: Order cancelled - Patient discharged Performed By: #### L 500.2500, L100.0100 ####[facility] [address] [place], [address] HCT Normal 40-54 [facility] Comment on above: Result Comment: Canc elled via OM: Order cancelled - Patient discharged Performed By: #### L 500.2500, L100.0100 ####[facility] [address] [place], [address] HGB Normal 13.0-16.5 [facility] Comment on above: Result Comment: Canc elled via OM: Order cancelled - Patient discharged Performed By: #### L 500.2500, L100.0100 ####[facility] [address] [place], [address] MCH Normal 27.0-32.0 [facility] Comment on above: Result Comment: Canc elled via OM: Order cancelled - Patient discharged Performed By: #### L 500.2500, L100.0100 ####[facility] [address] [place], [address] MCHC Normal 32-36 [facility] Comment on above: Result Comment: Canc elled via OM: Order cancelled - Patient discharged Performed By: #### L 500.2500, L100.0100 ####[facility] [address] [place], [address] MCV Normal 80-94 [facility] Comment on above: Result Comment: Canc elled via OM: Order cancelled - Patient discharged Performed By: #### L 500.2500, L100.0100 ####[facility] [address] [place], [address] NEUT% Normal 47-70 [facility] Comment on above: Result Comment: Canc elled via OM: Order cancelled - Patient discharged Performed By: #### L 500.2500, L100.0100 ####[facility] [address] [place], [address] PLT Normal 150-450 [facility] Comment on above: Result Comment: Canc elled via OM: Order cancelled - Patient discharged Performed By: #### L 500.2500, L100.0100 ####[facility] [address] [place], [address] RBC Normal 4.6-6.2 [facility] Comment on above: Result Comment: Canc elled via OM: Order cancelled - Patient discharged Performed By: #### L 500.2500, L100.0100 ####[facility] [address] [place], [address] RDW CV Normal 11.6-14.6 [facility] Comment on above: Result Comment: Canc elled via OM: Order cancelled - Patient discharged Performed By: #### L 500.2500, L100.0100 ####[facility] [address] [place], [address] RDW SD Normal 35.1-43.9 [facility] Comment on above: Result Comment: Canc elled via OM: Order cancelled - Patient discharged Performed By: #### L 500.2500, L100.0100 ####[facility] [address] [place], [address] WBC Normal 4.4-11.0 [facility] Comment on above: Result Comment: Canc elled via OM: Order cancelled - Patient discharged Performed By: #### L 500.2500, L100.0100 ####[facility] [address] [place], [address] Basic Metabolic Profile (BMP )on 01-30-2025 BUN Normal 4-19 [facility] Comment on above: Result Comment: Canc elled via OM: Order cancelled - Patient discharged Performed By: #### L 100.0100, L500.2500 ####[facility] [address] [place], [address] BUN/CRE Normal 10-20 [facility] Comment on above: Result Comment: Canc elled via OM: Order cancelled - Patient discharged Performed By: #### L 100.0100, L500.2500 ####[facility] [address] [place], [address] Calcium Normal 7.6-11.0 [facility] Comment on above: Result Comment: Canc elled via OM: Order cancelled - Patient discharged Performed By: #### L 100.0100, L500.2500 ####[facility] [address] [place], [address] CL Normal 98-108 [facility] Comment on above: Result Comment: Canc elled via OM: Order cancelled - Patient discharged Performed By: #### L 100.0100, L500.2500 ####[facility] [address] [place], [address] CO2 Normal 21.0-32.0 [facility] Comment on above: Result Comment: Canc elled via OM: Order cancelled - Patient discharged Performed By: #### L 100.0100, L500.2500 ####[facility] [address] [place], [address] CREAT,SERUM Normal 0.70-1.20 [facility] Comment on above: Result Comment: Canc elled via OM: Order cancelled - Patient discharged Performed By: #### L 100.0100, L500.2500 ####[facility] [address] [place], [address] eGFR Normal >60 [facility] Comment on above: Result Comment: Canc elled via OM: Order cancelled - Patient discharged Performed By: #### L 100.0100, L500.2500 ####[facility] [address] [place], [address] GAP Normal 5-15 [facility] Comment on above: Result Comment: Canc elled via OM: Order cancelled - Patient discharged Performed By: #### L 100.0100, L500.2500 ####[facility] [address] [place], [address] GLU Normal 70-99 [facility] Comment on above: Result Comment: Canc elled via OM: Order cancelled - Patient discharged Performed By: #### L 100.0100, L500.2500 ####[facility] [address] [place], [address] Potassium Normal 3.3-5.1 [facility] Comment on above: Result Comment: Canc elled via OM: Order cancelled - Patient discharged Performed By: #### L 100.0100, L500.2500 ####[facility] [address] [place], [address] Basic Metabolic Profile (BMP) Normal 133-145 [facility] Comment on above: Result Comment: Canc elled via OM: Order cancelled - Patient discharged Performed By: #### L 100.0100, L500.2500 ####[facility] [address] [place], [address] CBC W/Diff, Automatedon 09-1 0-2024 Absolute Neut Normal 2.0-7.7 [facility] Comment on above: Result Comment: Canc elled via OM: Order cancelled - Patient discharged Performed By: #### L 100.0100, L500.2500 ####[facility] [address] [place], [address] HCT Normal 40-54 [facility] Comment on above: Result Comment: Canc elled via OM: Order cancelled - Patient discharged Performed By: #### L 100.0100, L500.2500 ####[facility] [address] [place], [address] HGB Normal 13.0-16.5 [facility] Comment on above: Result Comment: Canc elled via OM: Order cancelled - Patient discharged Performed By: #### L 100.0100, L500.2500 ####[facility] [address] [place], [address] MCH Normal 27.0-32.0 [facility] Comment on above: Result Comment: Canc elled via OM: Order cancelled - Patient discharged Performed By: #### L 100.0100, L500.2500 ####[facility] [address] [place], [address] MCHC Normal 32-36 [facility] Comment on above: Result Comment: Canc elled via OM: Order cancelled - Patient discharged Performed By: #### L 100.0100, L500.2500 ####[facility] [address] [place], [address] MCV Normal 80-94 [facility] Comment on above: Result Comment: Canc elled via OM: Order cancelled - Patient discharged Performed By: #### L 100.0100, L500.2500 ####[facility] [address] [place], [address] NEUT% Normal 47-70 [facility] Comment on above: Result Comment: Canc elled via OM: Order cancelled - Patient discharged Performed By: #### L 100.0100, L500.2500 ####[facility] [address] [place], [address] PLT Normal 150-450 [facility] Comment on above: Result Comment: Canc elled via OM: Order cancelled - Patient discharged Performed By: #### L 100.0100, L500.2500 ####[facility] [address] [place], [address] RBC Normal 4.6-6.2 [facility] Comment on above: Result Comment: Canc elled via OM: Order cancelled - Patient discharged Performed By: #### L 100.0100, L500.2500 ####[facility] [address] [place], [address] RDW CV Normal 11.6-14.6 [facility] Comment on above: Result Comment: Canc elled via OM: Order cancelled - Patient discharged Performed By: #### L 100.0100, L500.2500 ####[facility] [address] [place], [address] RDW SD Normal 35.1-43.9 [facility] Comment on above: Result Comment: Canc elled via OM: Order cancelled - Patient discharged Performed By: #### L 100.0100, L500.2500 ####[facility] [address] [place], [address] WBC Normal 4.4-11.0 [facility] Comment on above: Result Comment: Canc elled via OM: Order cancelled - Patient discharged Performed By: #### L 100.0100, L500.2500 ####[facility] [address] [place], [address] Absolute lymphocyte countOrd ered By: Kimberly Pam on 01-29-2025 Lymphocytes Auto (Unsp spec) [#/Vol] 1.11 10*3/uL 0.83-4.51 [facility] Anion gap in Serum or Plasma Ordered By: Kimberly Orozco on 01-29-2025 Anion gap [Moles/Vol] 14 mmol/L 5-15 [facility] Automated lymphocyte count a s percentage of total leukocytesOrdered By: Kimberly Orozco on 01-29-2025 Lymphocytes/100 WBC Auto (Unsp spec) 13.6 % Low 19-41 [facility] BUN/creatinine ratioOrdered By: Kimberly Orozco on 01-29-2025 Urea nitrogen/Creatinine [Mass ratio] 10.6 mg/mg 10-20 [facility] Basic Metabolic Profile (BMP )on 01-29-2025 BUN/CRE 10.6 RATIO Normal 10-20 [facility] Comment on above: Performed By: #### L 500.2500, L100.0100 ####[facility] [address] [place], [address] Calcium [Mass/Vol] 8.6 mg/dL Normal 7.6-11.0 [facility] Comment on above: Performed By: #### L 500.2500, L100.0100 ####[facility] [address] [place], [address] Chloride [Moles/Vol] 96 mmol/L Low 98-108 [facility] Comment on above: Performed By: #### L 500.2500, L100.0100 ####[facility] [address] [place], [address] CO2 [Moles/Vol] 23.8 mmol/L Normal 21.0-32.0 [facility] Comment on above: Performed By: #### L 500.2500, L100.0100 ####[facility] [address] [place], [address] Creatinine [Mass/Vol] 4.06 mg/dL High 0.70-1.20 [facility] Comment on above: Performed By: #### L 500.2500, L100.0100 ####[facility] [facility] [address] [place], [address] ECRCL 14.95 ml/min Low 50-250 [facility] Comment on above: Performed By: #### L 500.2500, L100.0100 ####[facility] [address] [place], [address] GAP 14 Normal 5-15 [facility] Comment on above: Performed By: #### L 500.2500, L100.0100 ####[facility] [address] [place], [address] GFR/1.73 sq M.predicted among non-blacks MDRD (S/P/Bld) [Vol rate/Area] 14 mL/min/{1.73_m2} Low >60 [facility] Comment on above: Result Comment: mL/m in/1.73m2 CKD-EPI Creatinine Equation (2020) Performed By: #### L 500.2500, L100.0100 ####[facility] [address] [place], [address] Glucose [Mass/Vol] 218 mg/dL High 70-99 [facility] Comment on above: Performed By: #### L 500.2499, L100.0100 ####[facility] [address] [place], [address] Potassium [Moles/Vol] 4.1 mmol/L Normal 3.3-5.1 [facility] Comment on above: Performed By: #### L 500.2500, L100.0100 ####[facility] [address] [place], [address] Sodium [Moles/Vol] 134 mmol/L Normal 133-145 [facility] Comment on above: Performed By: #### L 500.2500, L100.0100 ####[facility] [address] [place], [address] Urea nitrogen [Mass/Vol] 43 mg/dL High 4-19 [facility] Comment on above: Performed By: #### L 500.2500, L100.0100 ####[facility] [address] [place], [address] Basophil percentageOrdered B y: Kimberly Orozco on 01-29-2025 Basophils/100 WBC (Bld) 0.6 % 0-1 [facility] Bedside Glucoseon 01-29-2025 FINGERSTICK GLU 198 mg/dL High 74-106 [facility] Comment on above: Result Comment: FANG GEMENT OF PATIENT CARE PER NURSING PROTOCOL Performed By: #### L 501.080 ####[facility] [address] [place], [address] FINGERSTICK GLU 207 mg/dL High 74-106 [facility] Comment on above: Result Comment: FANG GEMENT OF PATIENT CARE PER NURSING PROTOCOL Performed By: #### L 501.080 ####[facility] [address] [place], [address] CBC W/Diff, Automatedon Absolute Lymph 1.11 X10 3/uL Normal 0.83-4.51 [facility] Comment on above: Performed By: #### L 500.2500, L100.0100 ####[facility] [address] [place], [address] Absolute Neut 5.6 X10 3/uL Normal 2.0-7.7 [facility] Comment on above: Performed By: #### L 500.2500, L100.0100 ####[facility] [address] [place], [address] Basophils/100 WBC (Bld) 0.6 % Normal 0-1 [facility] Comment on above: Performed By: #### L 500.2500, L100.0100 ####[facility] [address] [place], [address] Eosinophils/100 WBC (Bld) 2.3 % Normal 0-5 [facility] Comment on above: Performed By: #### L 500.2500, L100.0100 ####[facility] [address] [place], [address] Erythrocyte distribution width (RBC) [Ratio] 17.0 % High 11.6-14.6 [facility] Comment on above: Performed By: #### L 500.2500, L100.0100 ####[facility] [address] [place], [address] Hematocrit (Bld) [Volume fraction] 27.8 % Low 40-54 [facility] Comment on above: Performed By: #### L 500.2500, L100.0100 ####[facility] [address] [place], [address] Hemoglobin (Bld) [Mass/Vol] 9.1 g/dL Low 13.0-16.5 [facility] Comment on above: Performed By: #### L 500.2500, L100.0100 ####[facility] [address] [place], [address] IG% 0.900 Normal 0.0-0.9 [facility] Comment on above: Result Comment: IG% - Immature Granulocytes (promyelocytes, myelocytes andmetamyelocytes) > 1% indicates that a LEFT SHIFT is Present. Performed By: #### L 500.2500, L100.0100 ####[facility] [address] [place], [address] Lymphocytes/100 WBC (Bld) 13.6 % Low 19-41 [facility] Comment on above: Performed By: #### L 500.2500, L100.0100 ####[facility] [address] [place], [address] MCH (RBC) [Entitic mass] 30.4 pg Normal 27.0-32.0 [facility] Comment on above: Performed By: #### L 500.2500, L100.0100 ####[facility] [address] [place], [address] MCHC (RBC) [Mass/Vol] 32.7 g/dL Normal 32-36 [facility] Comment on above: Performed By: #### L 500.2500, L100.0100 ####[facility] [address] [place], [address] MCV (RBC) [Entitic vol] 93.0 fL Normal 80-94 [facility] Comment on above: Performed By: #### L 500.2500, L100.0100 ####[facility] [address] [place], [address] Monocytes/100 WBC (Bld) 13.7 % High 0-10 [facility] Comment on above: Performed By: #### L 500.2500, L100.0100 ####[facility] [address] [place], [address] Neutrophils/100 WBC (Bld) 68.9 % Normal 47-70 [facility] Comment on above: Performed By: #### L 500.2500, L100.0100 ####[facility] [address] [place], [address] Nucleated RBC (Bld) [#/Vol] 0 10*3/uL Normal 0-5 [facility] Comment on above: Performed By: #### L 500.2500, L100.0100 ####[facility] [address] [place], [address] Platelet mean volume (Bld) [Entitic vol] 11.7 fL Normal 6.2-12.0 [facility] Comment on above: Performed By: #### L 500.2500, L100.0100 ####[facility] [address] [place], [address] Platelets (Bld) [#/Vol] 137 10*3/uL Low 150-450 [facility] Comment on above: Performed By: #### L 500.2500, L100.0100 ####[facility] [address] [place], [address] RBC (Bld) [#/Vol] 2.99 10*6/uL Low 4.6-6.2 [facility] Comment on above: Performed By: #### L 500.2500, L100.0100 ####[facility] [address] [place], [address] RDW SD 57.5 fl High 35.1-43.9 [facility] Comment on above: Performed By: #### L 500.2500, L100.0100 ####[facility] [address] [place], [address] WBC (Bld) [#/Vol] 8.2 10*3/uL Normal 4.4-11.0 [facility] Comment on above: Performed By: #### L 500.2500, L100.0100 ####[facility] [address] [place], [address] Carbon dioxide, total [Moles /volume] in Central venous bloodOrdered By: Kimberly Orozco on 01-29-2025 CO2 [Moles/Vol] 23.8 mmol/L 21.0-32.0 [facility] Chloride assayOrdered By: Aishwarya Orozco on 01-29-2025 Chloride [Moles/Vol] 96 mmol/L Low 98-108 [facility] Eosinophil percentageOrdered By: Kimberly Orozco on 01-29-2025 Eosinophils/100 WBC (Bld) 2.3 % 0-5 [facility] Erythrocyte distribution wid th ratioOrdered By: Kimberly Orozco on 01-29-2025 Erythrocyte distribution width (RBC) [Ratio] 17.0 % High 11.6-14.6 [facility] Erythrocyte distribution wid th standard deviationOrdered By: Kimberly Orozco on 01-29-2025 Erythrocyte distribution width (RBC) [Ratio] 57.5 fl High 35.1-43.9 [facility] Glomerular filtration rate ( GFR) estimation/1.73 sq m using serum, plasma, or whole bOrdered By: Kimberly Orozco on 01-29-2025 GFR/1.73 sq M.predicted among non-blacks MDRD (S/P/Bld) [Vol rate/Area] 14 mL/min/{1.73_m2} Low >60 [facility] Gl[facility] at [facility] deOrdered By: Jaswant Montgomery on 01-29-2025 Glucose [Mass/Vol] 198 mg/dL High 74-106 [facility] Hematocrit Auto (Bld) [Volum e fraction]Ordered By: Kimberly Orozco on 01-29-2025 Hematocrit (Bld) [Volume fraction] 27.8 % Low 40-54 [facility] Hemoglobin measurementOrdere d By: Kimberly Orozco on 01-29-2025 Hemoglobin (Bld) [Mass/Vol] 9.1 g/dL Low 13.0-16.5 [facility] Immature granulocytes/100 WB C Auto (Bld)Ordered By: Kimberly Orozco 01-29-2025 Immature granulocytes/100 WBC (Bld) 0.900 % 0.0-0.9 [facility] MCV (mean corpuscular volume ) determinationOrdered By: Kimberly Orozco on 01-29-2025 MCV (RBC) [Entitic vol] 93.0 fL 80-94 [facility] Mean corpuscular hemoglobin (MCH) determinationOrdered By: Kimberly Orozco 01-29-2025 MCH (RBC) [Entitic mass] 30.4 pg 27.0-32.0 [facility] Monocyte percentageOrdered B y: Kimberly Orozco on 01-29-2025 Monocytes/100 WBC (Bld) 13.7 % High 0-10 [facility] Neutrophil percentageOrdered By: Kimberly Orozco on 01-29-2025 Neutrophils/100 WBC (Bld) 68.9 % 47-70 [facility] Platelet countOrdered By: Na aishwarya Orozco on 01-29-2025 Platelets (Bld) [#/Vol] 137 10*3/uL Low 150-450 [facility] Potassium measurement (mass/ volume)Ordered By: Kimberly Orozco on 01-29-2025 Potassium (Unsp spec) [Mass/Vol] 4.1 mmol/L 3.3-5.1 [facility] RBC Auto (Bld) [#/Vol]Ordere d By: Kimberly Orozco on 01-29-2025 RBC (Bld) [#/Vol] 2.99 10*6/uL Low 4.6-6.2 [facility] Serum creatinine measurement (mass/volume)Ordered By: Kimberly Orozco on 01-29-2025 Creatinine [Mass/Vol] 4.06 mg/dL High 0.70-1.20 [facility] Serum glucose measurement (m ass/volume)Ordered By: Kimberly Orozco on 01-29-2025 Glucose [Mass/Vol] 218 mg/dL High 70-99 [facility] Serum or plasma calcium lilli urement (mass/volume)Ordered By: Kimberly Orozco on 01-29-2025 Calcium [Mass/Vol] 8.6 mg/dL 7.6-11.0 [facility] Serum or plasma urea nitroge n measurement (mass/volume)Ordered By: Kimberly Orozco on 01-29-2025 Urea nitrogen [Mass/Vol] 43 mg/dL High 4-19 [facility] Sodium levelOrdered By: Kimberly Orozco on 01-29-2025 Sodium [Moles/Vol] 134 mmol/L 133-145 [facility] White blood cell (WBC) count Ordered By: Kimberly Orozco on 01-29-2025 WBC (Bld) [#/Vol] 8.2 10*3/uL 4.4-11.0 [facility] Basic Metabolic Profile (BMP )on 01-28-2025 BUN/CRE 10.4 RATIO Normal 10-20 [facility] Comment on above: Performed By: #### L 100.0100, L500.2500 ####[facility] [address] [place], [address] Calcium [Mass/Vol] 8.2 mg/dL Normal 7.6-11.0 [facility] Comment on above: Performed By: #### L 100.0100, L500.2500 ####[facility] [address] [place], [address] Chloride [Moles/Vol] 93 mmol/L Low 98-108 [facility] Comment on above: Performed By: #### L 100.0100, L500.2500 ####[facility] [address] [place], [address] CO2 [Moles/Vol] 21.9 mmol/L Normal 21.0-32.0 [facility] Comment on above: Performed By: #### L 100.0100, L500.2500 ####[facility] [address] [place], [address] Creatinine [Mass/Vol] 5.58 mg/dL High 0.70-1.20 [facility] Comment on above: Performed By: #### L 100.0100, L500.2500 ####[facility] [address] [place], [address] ECRCL 10.91 ml/min Low 50-250 [facility] Comment on above: Performed By: #### L 100.0100, L500.2500 ####[facility] [address] [place], [address] GAP 15 Normal 5-15 [facility] Comment on above: Performed By: #### L 100.0100, L500.2500 ####[facility] [address] [place], [address] GFR/1.73 sq M.predicted among non-blacks MDRD (S/P/Bld) [Vol rate/Area] 9 mL/min/{1.73_m2} Low >60 [facility] Comment on above: Result Comment: mL/m in/1.73m2 CKD-EPI Creatinine Equation (2020) Performed By: #### L 100.0100, L500.2500 ####[facility] [address] [place], [address] Glucose [Mass/Vol] 158 mg/dL High 70-99 [facility] Comment on above: Performed By: #### L 100.0100, L500.2500 ####[facility] [address] [place], [address] Potassium [Moles/Vol] 5.5 mmol/L High 3.3-5.1 [facility] Comment on above: Performed By: #### L 100.0100, L500.2500 ####[facility] [address] [place], [address] Sodium [Moles/Vol] 130 mmol/L Low 133-145 [facility] Comment on above: Performed By: #### L 100.0100, L500.2500 ####[facility] [address] [place], [address] Urea nitrogen [Mass/Vol] 58 mg/dL High 4-19 [facility] Comment on above: Performed By: #### L 100.0100, L500.2500 ####[facility] [address] [place], [address] Bedside Glucoseon 01-28-2025 FINGERSTICK GLU 208 mg/dL High 74-106 [facility] Comment on above: Result Comment: FANG GEMENT OF PATIENT CARE PER NURSING PROTOCOL Performed By: #### L 501.080 ####[facility] [address] [place], [address] FINGERSTICK GLU 220 mg/dL High 74-106 [facility] Comment on above: Result Comment: FANG GEMENT OF PATIENT CARE PER NURSING PROTOCOL Performed By: #### L 501.080 ####[facility] [address] [place], [address] FINGERSTICK GLU 192 mg/dL High 74-106 [facility] Comment on above: Result Comment: FANG GEMENT OF PATIENT CARE PER NURSING PROTOCOL Performed By: #### L 501.080 ####[facility] [address] [place], [address] FINGERSTICK GLU 148 mg/dL High 74-106 [facility] Comment on above: Result Comment: FANG GEMENT OF PATIENT CARE PER NURSING PROTOCOL Performed By: #### L 501.080 ####[facility] [address] [place], [address] CBC W/Diff, Automatedon 09-0 8-2024 Absolute Lymph 1.26 X10 3/uL Normal 0.83-4.51 [facility] Comment on above: Performed By: #### L 100.0100, L500.2500 ####[facility] [address] [place], [address] Absolute Neut 6.2 X10 3/uL Normal 2.0-7.7 [facility] Comment on above: Performed By: #### L 100.0100, L500.2500 ####[facility] [address] [place], [address] Basophils/100 WBC (Bld) 0.6 % Normal 0-1 [facility] Comment on above: Performed By: #### L 100.0100, L500.2500 ####[facility] [address] [place], [address] Eosinophils/100 WBC (Bld) 2.1 % Normal 0-5 [facility] Comment on above: Performed By: #### L 100.0100, L500.2500 ####[facility] [address] [place], [address] Erythrocyte distribution width (RBC) [Ratio] 15.4 % High 11.6-14.6 [facility] Comment on above: Performed By: #### L 100.0100, L500.2500 ####[facility] [address] [place], [address] Hematocrit (Bld) [Volume fraction] 22.4 % Low 40-54 [facility] Comment on above: Performed By: #### L 100.0100, L500.2500 ####[facility] [address] [place], [address] Hemoglobin (Bld) [Mass/Vol] 7.3 g/dL Low 13.0-16.5 [facility] Comment on above: Performed By: #### L 100.0100, L500.2500 ####[facility] [address] [place], [address] IG% 0.600 Normal 0.0-0.9 [facility] Comment on above: Result Comment: IG% - Immature Granulocytes (promyelocytes, myelocytes andmetamyelocytes) > 1% indicates that a LEFT SHIFT is Present. Performed By: #### L 100.0100, L500.2500 ####[facility] [address] [place], [address] Lymphocytes/100 WBC (Bld) 14.0 % Low 19-41 [facility] Comment on above: Performed By: #### L 100.0100, L500.2500 ####[facility] [address] [place], [address] MCH (RBC) [Entitic mass] 31.2 pg Normal 27.0-32.0 [facility] Comment on above: Performed By: #### L 100.0100, L500.2500 ####[facility] [address] [place], [address] MCHC (RBC) [Mass/Vol] 32.6 g/dL Normal 32-36 [facility] Comment on above: Performed By: #### L 100.0100, L500.2500 ####[facility] [address] [place], [address] MCV (RBC) [Entitic vol] 95.7 fL High 80-94 [facility] Comment on above: Performed By: #### L 100.0100, L500.2500 ####[facility] [address] [place], [address] Monocytes/100 WBC (Bld) 13.3 % High 0-10 [facility] Comment on above: Performed By: #### L 100.0100, L500.2500 ####[facility] [address] [place], [address] Neutrophils/100 WBC (Bld) 69.4 % Normal 47-70 [facility] Comment on above: Performed By: #### L 100.0100, L500.2500 ####[facility] [address] [place], [address] Nucleated RBC (Bld) [#/Vol] 0 10*3/uL Normal 0-5 [facility] Comment on above: Performed By: #### L 100.0100, L500.2500 ####[facility] [address] [place], [address] Platelet mean volume (Bld) [Entitic vol] 11.4 fL Normal 6.2-12.0 [facility] Comment on above: Performed By: #### L 100.0100, L500.2500 ####[facility] [address] [place], [address] Platelets (Bld) [#/Vol] 135 10*3/uL Low 150-450 [facility] Comment on above: Performed By: #### L 100.0100, L500.2500 ####[facility] [address] [place], [address] RBC (Bld) [#/Vol] 2.34 10*6/uL Low 4.6-6.2 [facility] Comment on above: Performed By: #### L 100.0100, L500.2500 ####[facility] [address] [place], [address] RDW SD 53.7 fl High 35.1-43.9 [facility] Comment on above: Performed By: #### L 100.0100, L500.2500 ####[facility] [address] [place], [address] WBC (Bld) [#/Vol] 9.0 10*3/uL Normal 4.4-11.0 [facility] Comment on above: Performed By: #### L 100.0100, L500.2500 ####[facility] [address] [place], [address] Consultation - Nephrologyon 01-28-2025 Consultation - Nephrology Normal [facility] Electrocardiogram reportOrde red By: Zenaida Cooper on 01-28-[address] [facility] Other Phone: HH, Hemoglobin AND Hematocri ton 01-28-2025 Hematocrit (Bld) [Volume fraction] 32.0 % Low 40-54 [facility] Comment on above: Performed By: #### L 100.0600 ####[facility] [address] [place], [address] Hemoglobin (Bld) [Mass/Vol] 10.7 g/dL Low 13.0-16.5 [facility] Comment on above: Performed By: #### L 100.0600 ####[facility] [address] [place], [address] Basic Metabolic Profile (BMP )on 01-27-2025 BUN/CRE 9.4 RATIO Low 10-20 [facility] Comment on above: Performed By: #### L 500.2500, L100.0100 ####[facility] [address] [place], [address] Calcium [Mass/Vol] 8.7 mg/dL Normal 7.6-11.0 [facility] Comment on above: Performed By: #### L 500.2500, L100.0100 ####[facility] [address] [place], [address] Chloride [Moles/Vol] 97 mmol/L Low 98-108 [facility] Comment on above: Performed By: #### L 500.2500, L100.0100 ####[facility] [address] [place], [address] CO2 [Moles/Vol] 23.2 mmol/L Normal 21.0-32.0 [facility] Comment on above: Performed By: #### L 500.2500, L100.0100 ####[facility] [address] [place], [address] Creatinine [Mass/Vol] 4.35 mg/dL High 0.70-1.20 [facility] Comment on above: Performed By: #### L 500.2500, L100.0100 ####[facility] [address] [place], [address] ECRCL 13.94 ml/min Low 50-250 [facility] Comment on above: Performed By: #### L 500.2500, L100.0100 ####[facility] [address] [place], [address] GAP 15 Normal 5-15 [facility] Comment on above: Performed By: #### L 500.2500, L100.0100 ####[facility] [address] [place], [address] GFR/1.73 sq M.predicted among non-blacks MDRD (S/P/Bld) [Vol rate/Area] 12 mL/min/{1.73_m2} Low >60 [facility] Comment on above: Result Comment: mL/m in/1.73m2 CKD-EPI Creatinine Equation (2020) Performed By: #### L 500.2500, L100.0100 ####[facility] [address] [place], [address] Glucose [Mass/Vol] 144 mg/dL High 70-99 [facility] Comment on above: Performed By: #### L 500.2500, L100.0100 ####[facility] [address] [place], [address] Potassium [Moles/Vol] 5.2 mmol/L High 3.3-5.1 [facility] Comment on above: Performed By: #### L 500.2500, L100.0100 ####[facility] [address] [place], [address] Sodium [Moles/Vol] 134 mmol/L Normal 133-145 [facility] Comment on above: Performed By: #### L 500.2500, L100.0100 ####[facility] [address] [place], [address] Urea nitrogen [Mass/Vol] 41 mg/dL High 4-19 [facility] Comment on above: Performed By: #### L 500.2500, L100.0100 ####[facility] [address] [place], [address] Bedside Glucoseon 01-27-2025 FINGERSTICK GLU 217 mg/dL High 74-106 [facility] Comment on above: Result Comment: FANG GEMENT OF PATIENT CARE PER NURSING PROTOCOL Performed By: #### L 501.080 ####[facility] [address] [place], [address] FINGERSTICK GLU 159 mg/dL High 74-106 [facility] Comment on above: Result Comment: FANG GEMENT OF PATIENT CARE PER NURSING PROTOCOL Performed By: #### L 501.080 ####[facility] [address] [place], [address] FINGERSTICK GLU 156 mg/dL High 74-106 [facility] Comment on above: Result Comment: FANG GEMENT OF PATIENT CARE PER NURSING PROTOCOL Performed By: #### L 501.080 ####[facility] [address] [place], [address] FINGERSTICK GLU 151 mg/dL High 74-106 [facility] Comment on above: Result Comment: FANG GEMENT OF PATIENT CARE PER NURSING PROTOCOL Performed By: #### L 501.080 ####[facility] [address] [place], [address] CBC W/Diff, Automatedon 09-0 7-2025 Absolute Lymph 1.03 X10 3/uL Normal 0.83-4.51 [facility] Comment on above: Performed By: #### L 500.2500, L100.0100 ####[facility] [address] [place], [address] Absolute Neut 10.6 X10 3/uL High 2.0-7.7 [facility] Comment on above: Performed By: #### L 500.2500, L100.0100 ####[facility] [address] [place], [address] Basophils/100 WBC (Bld) 0.5 % Normal 0-1 [facility] Comment on above: Performed By: #### L 500.2500, L100.0100 ####[facility] [address] [place], [address] Eosinophils/100 WBC (Bld) 0.3 % Normal 0-5 [facility] Comment on above: Performed By: #### L 500.2500, L100.0100 ####[facility] [address] [place], [address] Erythrocyte distribution width (RBC) [Ratio] 15.7 % High 11.6-14.6 [facility] Comment on above: Performed By: #### L 500.2500, L100.0100 ####[facility] [address] [place], [address] Hematocrit (Bld) [Volume fraction] 27.0 % Low 40-54 [facility] Comment on above: Performed By: #### L 500.2500, L100.0100 ####[facility] [id number] [place], [address] Hemoglobin (Bld) [Mass/Vol] 8.5 g/dL Low 13.0-16.5 [facility] Comment on above: Performed By: #### L 500.2500, L100.0100 ####[facility] [address] [place], [address] IG% 0.600 Normal 0.0-0.9 [facility] Comment on above: Result Comment: IG% - Immature Granulocytes (promyelocytes, myelocytes andmetamyelocytes) > 1% indicates that a LEFT SHIFT is Present. Performed By: #### L 500.2500, L100.0100 ####[facility] [address] [place], [address] Lymphocytes/100 WBC (Bld) 7.9 % Low 19-41 [facility] Comment on above: Performed By: #### L 500.2500, L100.0100 ####[facility] [address] [place], [address] MCH (RBC) [Entitic mass] 30.8 pg Normal 27.0-32.0 [facility] Comment on above: Performed By: #### L 500.2500, L100.0100 ####[facility] [address] [place], [address] MCHC (RBC) [Mass/Vol] 31.5 g/dL Low 32-36 [facility] Comment on above: Performed By: #### L 500.2500, L100.0100 ####[facility] [address] [place], [address] MCV (RBC) [Entitic vol] 97.8 fL High 80-94 [facility] Comment on above: Performed By: #### L 500.2500, L100.0100 ####[facility] [address] [place], [address] Monocytes/100 WBC (Bld) 9.5 % Normal 0-[address] [facility] Comment on above: Performed By: #### L 500.2500, L100.0100 ####[facility] [address] [place], [address] Neutrophils/100 WBC (Bld) 81.2 % High 47-70 [facility] Comment on above: Performed By: #### L 500.2500, L100.0100 ####[facility] [address] [place], [address] Nucleated RBC (Bld) [#/Vol] 0 10*3/uL Normal 0-5 [facility] Comment on above: Performed By: #### L 500.2500, L100.0100 ####[facility] [address] [place], [address] Platelet mean volume (Bld) [Entitic vol] 11.8 fL Normal 6.2-12.0 [facility] Comment on above: Performed By: #### L 500.2500, L100.0100 ####[facility] [address] [place], [address] Platelets (Bld) [#/Vol] 144 10*3/uL Low 150-450 [facility] Comment on above: Performed By: #### L 500.2500, L100.0100 ####[facility] [address] [place], [address] RBC (Bld) [#/Vol] 2.76 10*6/uL Low 4.6-6.2 [facility] Comment on above: Performed By: #### L 500.2500, L100.0100 ####[facility] [address] [place], [address] RDW SD 55.6 fl High 35.1-43.9 [facility] Comment on above: Performed By: #### L 500.2500, L100.0100 ####[facility] [address] [place], [address] WBC (Bld) [#/Vol] 13.0 10*3/uL High 4.4-11.0 [facility] Comment on above: Performed By: #### L 500.2500, L100.0100 ####[facility] [address] [place], [address] Basic Metabolic Profile (BMP )on 01-26-2025 BUN/CRE 9.2 RATIO Low 10-20 [facility] Comment on above: Performed By: #### L 500.2500 ####[facility] [address] [place], [address] Calcium [Mass/Vol] 9.0 mg/dL Normal 7.6-11.0 [facility] Comment on above: Performed By: #### L 500.2500 ####[facility] [address] [place], [address] Chloride [Moles/Vol] 99 mmol/L Normal 98-108 [facility] Comment on above: Performed By: #### L 500.2500 ####[facility] [address] [place], [address] CO2 [Moles/Vol] 26.1 mmol/L Normal 21.0-32.0 [facility] Comment on above: Performed By: #### L 500.2500 ####[facility] [address] [place], [address] Creatinine [Mass/Vol] 3.63 mg/dL High 0.70-1.20 [facility] Comment on above: Performed By: #### L 500.2500 ####[facility] [address] [place], [address] ECRCL 16.71 ml/min Low 50-250 [facility] Comment on above: Performed By: #### L 500.2500 ####[facility] [address] [place], [address] GAP 11 Normal 5-15 [facility] Comment on above: Performed By: #### L 500.2500 ####[facility] [address] [place], [address] GFR/1.73 sq M.predicted among non-blacks MDRD (S/P/Bld) [Vol rate/Area] 16 mL/min/{1.73_m2} Low >60 [facility] Comment on above: Result Comment: mL/m in/1.73m2 CKD-EPI Creatinine Equation (2020) Performed By: #### L 500.2500 ####[facility] [address] [place], [address] Glucose [Mass/Vol] 106 mg/dL High 70-99 [facility] Comment on above: Performed By: #### L 500.2500 ####[facility] [address] [place], [address] Potassium [Moles/Vol] 4.2 mmol/L Normal 3.3-5.1 [facility] Comment on above: Performed By: #### L 500.2500 ####[facility] [address] [place], [address] Sodium [Moles/Vol] 136 mmol/L Normal 133-145 [facility] Comment on above: Performed By: #### L 500.2500 ####[facility] [address] [place], [address] Urea nitrogen [Mass/Vol] 33 mg/dL High 4-19 [facility] Comment on above: Performed By: #### L 500.2500 ####[facility] [address] [place], [address] BUN/CRE 9.9 RATIO Low 10-20 [facility] Comment on above: Performed By: #### L 100.0100, L500.2500 ####[facility] [address] [place], [address] Calcium [Mass/Vol] 8.9 mg/dL Normal 7.6-11.0 [facility] Comment on above: Performed By: #### L 100.0100, L500.2500 ####[facility] [address] [place], [address] Chloride [Moles/Vol] 95 mmol/L Low 98-108 [facility] Comment on above: Performed By: #### L 100.0100, L500.2500 ####[facility] [address] [place], [address] CO2 [Moles/Vol] 25.7 mmol/L Normal 21.0-32.0 [facility] Comment on above: Performed By: #### L 100.0100, L500.2500 ####[facility] [address] [place], [address] Creatinine [Mass/Vol] 5.65 mg/dL High 0.70-1.20 [facility] Comment on above: Performed By: #### L 100.0100, L500.2500 ####[facility] [address] [place], [address] ECRCL 10.84 ml/min Low 50-250 [facility] Comment on above: Performed By: #### L 100.0100, L500.2500 ####[facility] [address] [place], [address] GAP 14 Normal 5-15 [facility] Comment on above: Performed By: #### L 100.0100, L500.2500 ####[facility] [address] [place], [address] GFR/1.73 sq M.predicted among non-blacks MDRD (S/P/Bld) [Vol rate/Area] 9 mL/min/{1.73_m2} Low >60 [facility] Comment on above: Result Comment: mL/m in/1.73m2 CKD-EPI Creatinine Equation (2020) Performed By: #### L 100.0100, L500.2500 ####[facility] [address] [place], [address] Glucose [Mass/Vol] 150 mg/dL High 70-99 [facility] Comment on above: Performed By: #### L 100.0100, L500.2500 ####[facility] [address] [place], [address] Potassium [Moles/Vol] 5.0 mmol/L Normal 3.3-5.1 [facility] Comment on above: Performed By: #### L 100.0100, L500.2500 ####[facility] [address] [place], [address] Sodium [Moles/Vol] 134 mmol/L Normal 133-145 [facility] Comment on above: Performed By: #### L 100.0100, L500.2500 ####[facility] [address] [place], [address] Urea nitrogen [Mass/Vol] 56 mg/dL High 4-19 [facility] Comment on above: Performed By: #### L 100.0100, L500.2500 ####[facility] [address] [place], [address] Bedside Glucoseon 01-26-2025 FINGERSTICK GLU 138 mg/dL High 74-[address] [place] [address] Comment on above: Result Comment: FANG GEMENT OF PATIENT CARE PER NURSING PROTOCOL Performed By: #### L 501.080 ####[facility] [address] [place], [address] FINGERSTICK GLU 130 mg/dL High 74-106 [facility] Comment on above: Result Comment: FANG GEMENT OF PATIENT CARE PER NURSING PROTOCOL Performed By: #### L 501.080 ####[facility] [address] [place], [address] FINGERSTICK GLU 130 mg/dL High -106 [facility] Comment on above: Result Comment: FANG GEMENT OF PATIENT CARE PER NURSING PROTOCOL Performed By: #### L 501.080 ####[facility] [address] [place], [address] FINGERSTICK GLU 153 mg/dL High [address] [place] [address] Comment on above: Result Comment: FANG GEMENT OF PATIENT CARE PER NURSING PROTOCOL Performed By: #### L 501.080 ####[facility] [address] [place], [address] CBC W/Diff, Automatedon 09 Absolute Lymph 1.64 X10 3/uL Normal 0.83-4.51 [facility] Comment on above: Performed By: #### L 100.0100, L500.2500 ####[facility] [address] [place], [address] Absolute Neut 7.3 X10 3/uL Normal 2.0-7.7 [facility] Comment on above: Performed By: #### L 100.0100, L500.2500 ####[facility] [address] [place], [address] Basophils/100 WBC (Bld) 0.6 % Normal 0-1 [facility] Comment on above: Performed By: #### L 100.0100, L500.2500 ####[facility] [address] [place], [address] Eosinophils/100 WBC (Bld) 1.1 % Normal 0-5 [facility] Comment on above: Performed By: #### L 100.0100, L500.2500 ####[facility] [address] [place], [address] Erythrocyte distribution width (RBC) [Ratio] 15.3 % High 11.6-14.6 [facility] Comment on above: Performed By: #### L 100.0100, L500.2500 ####[facility] [address] [place], [address] Hematocrit (Bld) [Volume fraction] 28.0 % Low 40-54 [facility] Comment on above: Performed By: #### L 100.0100, L500.2500 ####[facility] [address] [place], [address] Hemoglobin (Bld) [Mass/Vol] 9.1 g/dL Low 13.0-16.5 [facility] Comment on above: Performed By: #### L 100.0100, L500.2500 ####[facility] [address] [place], [address] IG% 0.500 Normal 0.0-0.9 [facility] Comment on above: Result Comment: IG% - Immature Granulocytes (promyelocytes, myelocytes andmetamyelocytes) > 1% indicates that a LEFT SHIFT is Present. Performed By: #### L 100.0100, L500.2500 ####[facility] [address] [place], [address] Lymphocytes/100 WBC (Bld) 15.9 % Low 19-41 [facility] Comment on above: Performed By: #### L 100.0100, L500.2500 ####[facility] [address] [place], [address] MCH (RBC) [Entitic mass] 30.8 pg Normal 27.0-32.0 [facility] Comment on above: Performed By: #### L 100.0100, L500.2500 ####[facility] [address] [place], [address] MCHC (RBC) [Mass/Vol] 32.5 g/dL Normal 32-36 [facility] Comment on above: Performed By: #### L 100.0100, L500.2500 ####[facility] [address] [place], [address] MCV (RBC) [Entitic vol] 94.9 fL High 80-94 [facility] Comment on above: Performed By: #### L 100.0100, L500.2500 ####[facility] [address] [place], [address] Monocytes/100 WBC (Bld) 10.8 % High 0-10 [facility] Comment on above: Performed By: #### L 100.0100, L500.2500 ####[facility] [address] [place], [address] Neutrophils/100 WBC (Bld) 71.1 % High 47-70 [facility] Comment on above: Performed By: #### L 100.0100, L500.2500 ####[facility] [address] [place], [address] Nucleated RBC (Bld) [#/Vol] 0 10*3/uL Normal 0-5 [facility] Comment on above: Performed By: #### L 100.0100, L500.2500 ####[facility] [address] [place], [address] Platelet mean volume (Bld) [Entitic vol] 11.9 fL Normal 6.2-12.0 [facility] Comment on above: Performed By: #### L 100.0100, L500.2500 ####[facility] [address] [place], [address] Platelets (Bld) [#/Vol] 163 10*3/uL Normal 150-450 [facility] Comment on above: Performed By: #### L 100.0100, L500.2500 ####[facility] [address] [place], [address] RBC (Bld) [#/Vol] 2.95 10*6/uL Low 4.6-6.2 [facility] Comment on above: Performed By: #### L 100.0100, L500.2500 ####[facility] [address] [place], [address] RDW SD 52.7 fl High 35.1-43.9 [facility] Comment on above: Performed By: #### L 100.0100, L500.2500 ####[facility] [address] [place], [address] WBC (Bld) [#/Vol] 10.3 10*3/uL Normal 4.4-11.0 [facility] Comment on above: Performed By: #### L 100.0100, L500.2500 ####[facility] [address] [place], [address] Femur Min 2 Viewson 01-27-20 25 Femur Min [address] [facility] MR/POSTOP.ANEon 01-26-2025 MR/POSTOP.ANE Normal [facility] MR/DUDQGIFU3xm 01-26-2025 MR/POSTOPAN2 Normal [facility] Operative Reporton Operative Report Normal [facility] 12 Lead EKGon 01-25-[address] [facility] Absolute lymphocyte countOrd ered By: Beau Dunlap on 01-25-2025 Lymphocytes Auto (Unsp spec) [#/Vol] 1.22 10*3/uL 0.83-4.51 [facility] Anion gap in Serum or Plasma Ordered By: Beau Dunlap on 01-25-2025 Anion gap [Moles/Vol] 13 mmol/L 5-15 [facility] Automated lymphocyte count a s percentage of total leukocytesOrdered By: Beau Dunlap on 01-25-2025 Lymphocytes/100 WBC Auto (Unsp spec) 18.0 % Low 19-41 [facility] BRCon 01-25-[address] [facility] Comment on above: Result Comment: [id number] AP RC TRANSFUSED 01/28/25 [id number] AP RC TRANSFUSED 01/28/25 1120 Performed By: #### B RC ####[facility] [address] [place], [address] BUN/creatinine ratioOrdered By: Beau Dunlap on 01-25-2025 Urea nitrogen/Creatinine [Mass ratio] 9.3 mg/mg Low 10-20 [facility] Basic Metabolic Profile (BMP )on 01-25-2025 BUN/CRE 9.3 RATIO Low 10-20 [facility] Comment on above: Performed By: #### L 100.0100, L500.2500 ####[facility] [address] [place], [address] Calcium [Mass/Vol] 8.9 mg/dL Normal 7.6-11.0 [facility] Comment on above: Performed By: #### L 100.0100, L500.2500 ####[facility] [address] [place], [address] Chloride [Moles/Vol] 97 mmol/L Low 98-108 [facility] Comment on above: Performed By: #### L 100.0100, L500.2500 ####[facility] [address] [place], [address] CO2 [Moles/Vol] 27.0 mmol/L Normal 21.0-32.0 [facility] Comment on above: Performed By: #### L 100.0100, L500.2500 ####[facility] [address] [place], [address] Creatinine [Mass/Vol] 5.11 mg/dL High 0.70-1.20 [facility] Comment on above: Performed By: #### L 100.0100, L500.2500 ####[facility] [address] [place], [address] ECRCL 12.02 ml/min Low 50-250 [facility] Comment on above: Performed By: #### L 100.0100, L500.2500 ####[facility] [address] [place], [address] GAP 13 Normal 5-15 [facility] Comment on above: Performed By: #### L 100.0100, L500.2500 ####[facility] [address] [place], [address] GFR/1.73 sq M.predicted among non-blacks MDRD (S/P/Bld) [Vol rate/Area] 10 mL/min/{1.73_m2} Low >60 [facility] Comment on above: Result Comment: mL/m in/1.73m2 CKD-EPI Creatinine Equation (2020) Performed By: #### L 100.0100, L500.2500 ####[facility] [address] [place], [address] Glucose [Mass/Vol] 213 mg/dL High 70-99 [facility] Comment on above: Performed By: #### L 100.0100, L500.2500 ####[facility] [address] [place], [address] Potassium [Moles/Vol] 4.4 mmol/L Normal 3.3-5.1 [facility] Comment on above: Performed By: #### L 100.0100, L500.2500 ####[facility] [address] [place], [address] Sodium [Moles/Vol] 136 mmol/L Normal 133-145 [facility] Comment on above: Performed By: #### L 100.0100, L500.2500 ####[facility] [address] [place], [address] Urea nitrogen [Mass/Vol] 47 mg/dL High 4-19 [facility] Comment on above: Performed By: #### L 100.0100, L500.2500 ####[facility] [address] [place], [address] Basophil percentageOrdered B y: Beau Dunlap on 01-25-2025 Basophils/100 WBC (Bld) 0.7 % 0-1 [facility] Bedside Glucoseon 01-25-2025 FINGERSTICK GLU 179 mg/dL High 74-106 [facility] Comment on above: Result Comment: FANG VAZQUEZ OF PATIENT CARE PER NURSING PROTOCOL Performed By: #### L 501.080 ####[facility] [address] [place], [address] CBC W/Diff, Automatedon Absolute Lymph 1.22 X10 3/uL Normal 0.83-4.51 [facility] Comment on above: Performed By: #### L 100.0100, L500.2500 ####[facility] [address] [place], [address] Absolute Neut 4.7 X10 3/uL Normal 2.0-7.7 [facility] Comment on above: Performed By: #### L 100.0100, L500.2500 ####[facility] [address] [place], [address] Basophils/100 WBC (Bld) 0.7 % Normal 0-1 [facility] Comment on above: Performed By: #### L 100.0100, L500.2500 ####[facility] [address] [place], [address] Eosinophils/100 WBC (Bld) 2.4 % Normal 0-5 [facility] Comment on above: Performed By: #### L 100.0100, L500.2500 ####[facility] [address] [place], [address] Erythrocyte distribution width (RBC) [Ratio] 15.5 % High 11.6-14.6 [facility] Comment on above: Performed By: #### L 100.0100, L500.2500 ####[facility] [address] [place], [address] Hematocrit (Bld) [Volume fraction] 29.9 % Low 40-54 [facility] Comment on above: Performed By: #### L 100.0100, L500.2500 ####[facility] [address] [place], [address] Hemoglobin (Bld) [Mass/Vol] 9.9 g/dL Low 13.0-16.5 [facility] Comment on above: Performed By: #### L 100.0100, L500.2500 ####[facility] [address] [place], [address] IG% 0.400 Normal 0.0-0.9 [facility] Comment on above: Result Comment: IG% - Immature Granulocytes (promyelocytes, myelocytes andmetamyelocytes) > 1% indicates that a LEFT SHIFT is Present. Performed By: #### L 100.0100, L500.2500 ####[facility] [address] [place], [address] Lymphocytes/100 WBC (Bld) 18.0 % Low 19-41 [facility] Comment on above: Performed By: #### L 100.0100, L500.2500 ####[facility] [address] [place], [address] MCH (RBC) [Entitic mass] 31.3 pg Normal 27.0-32.0 [facility] Comment on above: Performed By: #### L 100.0100, L500.2500 ####[facility] [address] [place], [address] MCHC (RBC) [Mass/Vol] 33.1 g/dL Normal 32-36 [facility] Comment on above: Performed By: #### L 100.0100, L500.2500 ####[facility] [address] [place], [address] MCV (RBC) [Entitic vol] 94.6 fL High 80-[address] [facility] Comment on above: Performed By: #### L 100.0100, L500.2500 ####[facility] [address] [place], [address] Monocytes/100 WBC (Bld) 9.6 % Normal 0-[address] [facility] Comment on above: Performed By: #### L 100.0100, L500.2500 ####[facility] [address] [place], [address] Neutrophils/100 WBC (Bld) 68.9 % Normal 47-70 [facility] Comment on above: Performed By: #### L 100.0100, L500.2500 ####[facility] [address] [place], [address] Nucleated RBC (Bld) [#/Vol] 0 10*3/uL Normal 0-5 [facility] Comment on above: Performed By: #### L 100.0100, L500.2500 ####[facility] [address] [place], [address] Platelet mean volume (Bld) [Entitic vol] 10.6 fL Normal 6.2-12.0 [facility] Comment on above: Performed By: #### L 100.0100, L500.2500 ####[facility] [address] [place], [address] Platelets (Bld) [#/Vol] 164 10*3/uL Normal 150-450 [facility] Comment on above: Performed By: #### L 100.0100, L500.2500 ####[facility] [address] [place], [address] RBC (Bld) [#/Vol] 3.16 10*6/uL Low 4.6-6.2 [facility] Comment on above: Performed By: #### L 100.0100, L500.2500 ####[facility] [address] [place], [address] RDW SD 54.0 fl High 35.1-43.9 [facility] Comment on above: Performed By: #### L 100.0100, L500.2500 ####[facility] [address] [place], [address] WBC (Bld) [#/Vol] 6.8 10*3/uL Normal 4.4-11.0 [facility] Comment on above: Performed By: #### L 100.0100, L500.2500 ####[facility] [address] [place], [address] Carbon dioxide, total [Moles /volume] in Central venous bloodOrdered By: Beau Dunlap on 01-25-2025 CO2 [Moles/Vol] 27.0 mmol/L 21.0-32.0 [facility] Chest 1 Viewon 01-25-[address] [facility] Chloride assayOrdered By: Xavier Dunlap on 01-25-2025 Chloride [Moles/Vol] 97 mmol/L Low 98-108 [facility] Consultation - Orthopedicson 01-25-2025 Consultation - Orthopedics Normal [facility] Consultation - Orthopedics Normal [facility] Emergency Department Summary on 01-25-[address] [facility] Eosinophil percentageOrdered By: Beau Dunlap on 01-25-2025 Eosinophils/100 WBC (Bld) 2.4 % 0-5 [facility] Erythrocyte distribution wid th ratioOrdered By: Beau Dunlap on 01-25-2025 Erythrocyte distribution width (RBC) [Ratio] 15.5 % High 11.6-14.6 [facility] Erythrocyte distribution wid th standard deviationOrdered By: Beau Dunlap on 01-25-2025 Erythrocyte distribution width (RBC) [Ratio] 54.0 fl High 35.1-43.9 [facility] Glomerular filtration rate ( GFR) estimation/1.73 sq m using serum, plasma, or whole bOrdered By: Beau Dunlap on 01-25-2025 GFR/1.73 sq M.predicted among non-blacks MDRD (S/P/Bld) [Vol rate/Area] 10 mL/min/{1.73_m2} Low >60 [facility] H AND P Exam - Hospitaliston 01-25-2025 H&P Exam - Hospitalist Normal [facility] HIP, UNI W/ Pelvis 2-3 Views on 01-25-2025 HIP, UNI W/ Pelvis 2-[address] [facility] Hematocrit Auto (Bld) [Volum e fraction]Ordered By: eBau Dunlap on 01-25-2025 Hematocrit (Bld) [Volume fraction] 29.9 % Low 40-54 [facility] Hemoglobin measurementOrdere d By: Beau Dunlap on 01-25-2025 Hemoglobin (Bld) [Mass/Vol] 9.9 g/dL Low 13.0-16.5 [facility] Immature granulocytes/100 WB C Auto (Bld)Ordered By: Beau Dunlap on 01-25-2025 Immature granulocytes/100 WBC (Bld) 0.400 % 0.0-0.9 [facility] Knee 1 or 2 Viewson 01-26-20 Knee 1 or [address] [facility] MCV (mean corpuscular volume ) determinationOrdered By: Beau Dunlap on 01-25-2025 MCV (RBC) [Entitic vol] 94.6 fL High 80-94 [facility] Mean corpuscular hemoglobin (MCH) determinationOrdered By: Beau Dunlap on 01-25-2025 MCH (RBC) [Entitic mass] 31.3 pg 27.0-32.0 [facility] Monocyte percentageOrdered B y: Beau Dunlap on 01-25-2025 Monocytes/100 WBC (Bld) 9.6 % 0-10 [facility] Neutrophil percentageOrdered By: Beau Dunlap on 01-25-2025 Neutrophils/100 WBC (Bld) 68.9 % 47-70 [facility] Platelet countOrdered By: Xavier Dunlap on 01-25-2025 Platelets (Bld) [#/Vol] 164 10*3/uL 150-450 [facility] Potassium measurement (mass/ volume)Ordered By: Beau Dunlap on 01-25-2025 Potassium (Unsp spec) [Mass/Vol] 4.4 mmol/L 3.3-5.1 [facility] RBC Auto (Bld) [#/Vol]Ordere d By: Beau Dunlap on 01-25-2025 RBC (Bld) [#/Vol] 3.16 10*6/uL Low 4.6-6.2 [facility] Serum creatinine measurement (mass/volume)Ordered By: Beau Dunlap on 01-25-2025 Creatinine [Mass/Vol] 5.11 mg/dL High 0.70-1.20 [facility] Serum glucose measurement (m ass/volume)Ordered By: Beau Dunlap on 01-25-2025 Glucose [Mass/Vol] 213 mg/dL High 70-99 [facility] Serum or plasma calcium lilli urement (mass/volume)Ordered By: Beau Dunlap on 01-25-2025 Calcium [Mass/Vol] 8.9 mg/dL 7.6-11.0 [facility] Serum or plasma urea nitroge n measurement (mass/volume)Ordered By: Beau Dunlap on 01-25-2025 Urea nitrogen [Mass/Vol] 47 mg/dL High 4-19 [facility] Sodium levelOrdered By: Beau Dunlap on 01-25-2025 Sodium [Moles/Vol] 136 mmol/L 133-145 [facility] Type AND Screenon 01-25-2025 ABO and Rh group Nom (Bld) Blood group A Rh(D) positive Normal [facility] Comment on above: Order Comment: S Performed By: #### B TS ####[facility] [address] [place], [place], [id number] White blood cell (WBC) count Ordered By: Beau Dunlap on 01-25-2025 WBC (Bld) [#/Vol] 6.8 10*3/uL 4.4-11.0 [facility] Absolute lymphocyte countOrd ered By: Nando Wiggins on 01-23-2025 Lymphocytes Auto (Unsp spec) [#/Vol] 1.42 10*3/uL 0.83-4.51 [facility] Anion gap in Serum or Plasma Ordered By: Nando Wiggins on 01-23-2025 Anion gap [Moles/Vol] 14 mmol/L 5-15 [facility] Automated lymphocyte count a s percentage of total leukocytesOrdered By: Nando Wiggins on 01-23-2025 Lymphocytes/100 WBC Auto (Unsp spec) 19.1 % 19-41 [facility] BUN/creatinine ratioOrdered By: Nando Wiggins on 01-23-2025 Urea nitrogen/Creatinine [Mass ratio] 9.7 mg/mg Low 10-20 [facility] Basophil percentageOrdered B y: Nando Wiggins on 01-23-2025 Basophils/100 WBC (Bld) 0.8 % 0-1 [facility] Carbon dioxide, total [Moles /volume] in Central venous bloodOrdered By: Nando Wiggins on 01-23-2025 CO2 [Moles/Vol] 27.0 mmol/L 21.0-32.0 [facility] Chloride assayOrdered By: Kathie Wiggins on 01-23-2025 Chloride [Moles/Vol] 92 mmol/L Low 98-108 [facility] Eosinophil percentageOrdered By: Nando Wiggins on 01-23-2025 Eosinophils/100 WBC (Bld) 2.7 % 0-5 [facility] Erythrocyte distribution wid th ratioOrdered By: Nando Wiggins on 01-23-2025 Erythrocyte distribution width (RBC) [Ratio] 15.7 % High 11.6-14.6 [facility] Erythrocyte distribution wid th standard deviationOrdered By: Nando Wiggins on 01-23-2025 Erythrocyte distribution width (RBC) [Ratio] 54.7 fl High 35.1-43.9 [facility] Glomerular filtration rate ( GFR) estimation/1.73 sq m using serum, plasma, or whole bOrdered By: Nando Wiggins on 01-23-2025 GFR/1.73 sq M.predicted among non-blacks MDRD (S/P/Bld) [Vol rate/Area] 12 mL/min/{1.73_m2} Low >60 [facility] Hematocrit Auto (Bld) [Volum e fraction]Ordered By: Nando Wiggins on 01-23-2025 Hematocrit (Bld) [Volume fraction] 31.3 % Low 40-54 [facility] Hemoglobin measurementOrdere d By: Nando Wiggins on 01-23-2025 Hemoglobin (Bld) [Mass/Vol] 10.0 g/dL Low 13.0-16.5 [facility] Immature granulocytes/100 WB C Auto (Bld)Ordered By: Nando Wiggins on 01-23-2025 Immature granulocytes/100 WBC (Bld) 0.500 % 0.0-0.9 [facility] MCV (mean corpuscular volume ) determinationOrdered By: Nando Wiggins on 01-23-2025 MCV (RBC) [Entitic vol] 95.7 fL High 80-94 [facility] Mean corpuscular hemoglobin (MCH) determinationOrdered By: Nando Wiggins on 01-23-2025 MCH (RBC) [Entitic mass] 30.6 pg 27.0-32.0 [facility] Monocyte percentageOrdered B y: Nando Wiggins on 01-23-2025 Monocytes/100 WBC (Bld) 9.3 % 0-10 [facility] Neutrophil percentageOrdered By: Nando Wiggins on 01-23-2025 Neutrophils/100 WBC (Bld) 67.6 % 47-70 [facility] Platelet countOrdered By: Kathie Wiggins on 01-23-2025 Platelets (Bld) [#/Vol] 173 10*3/uL 150-450 [facility] Potassium measurement (mass/ volume)Ordered By: Debsrinathwolf Wiggins on 01-23-2025 Potassium (Unsp spec) [Mass/Vol] 4.1 mmol/L 3.3-5.1 [facility] RBC Auto (Bld) [#/Vol]Ordere d By: Debsrinathwolf Wiggins on 01-23-2025 RBC (Bld) [#/Vol] 3.27 10*6/uL Low 4.6-6.2 [facility] Serum creatinine measurement (mass/volume)Ordered By: Nando Wiggins on 01-23-2025 Creatinine [Mass/Vol] 4.39 mg/dL High 0.70-1.20 [facility] Serum glucose measurement (m ass/volume)Ordered By: Nando Wiggins on 01-23-2025 Glucose [Mass/Vol] 201 mg/dL High 70-99 [facility] Serum or plasma calcium lilli urement (mass/volume)Ordered By: Nando Wiggins on 01-23-2025 Calcium [Mass/Vol] 8.7 mg/dL 7.6-11.0 [facility] Serum or plasma urea nitroge n measurement (mass/volume)Ordered By: Nando Wiggins on 01-23-2025 Urea nitrogen [Mass/Vol] 43 mg/dL High 4-19 [facility] Sodium levelOrdered By: Deb rosejeremie Rosalie on 01-23-2025 Sodium [Moles/Vol] 133 mmol/L 133-145 [facility] White blood cell (WBC) count Ordered By: Nando Wiggins on 01-23-2025 WBC (Bld) [#/Vol] 7.4 10*3/uL 4.4-11.0 [facility] Pacemaker Checkon 12-26-[address] [facility] Absolute lymphocyte countOrd ered By: Nando Wiggins on 12-24-2024 Lymphocytes Auto (Unsp spec) [#/Vol] 1.65 10*3/uL 0.83-4.51 [facility] Anion gap in Serum or Plasma Ordered By: Nando Wiggins on 12-24-2024 Anion gap [Moles/Vol] 16 mmol/L High 5-15 [facility] Automated lymphocyte count a s percentage of total leukocytesOrdered By: Nando Wiggins on 12-24-2024 Lymphocytes/100 WBC Auto (Unsp spec) 19.2 % 19-41 [facility] BUN/creatinine ratioOrdered By: Nando Wiggins on 12-24-2024 Urea nitrogen/Creatinine [Mass ratio] 9.7 mg/mg Low 10-20 [facility] Basophil percentageOrdered B y: Nando Wiggins on 12-24-2024 Basophils/100 WBC (Bld) 0.7 % 0-1 [facility] Carbon dioxide, total [Moles /volume] in Central venous bloodOrdered By: Nando Wiggins on 12-24-2024 CO2 [Moles/Vol] 25.2 mmol/L 21.0-32.0 [facility] Chloride assayOrdered By: Kathie Wiggins on 12-24-2024 Chloride [Moles/Vol] 93 mmol/L Low 98-108 [facility] Eosinophil percentageOrdered By: Nando Wiggins on 12-24-2024 Eosinophils/100 WBC (Bld) 2.8 % 0-5 [facility] Erythrocyte distribution wid th ratioOrdered By: Nando Wiggins on 12-24-2024 Erythrocyte distribution width (RBC) [Ratio] 15.2 % High 11.6-14.6 [facility] Erythrocyte distribution wid th standard deviationOrdered By: Nando Wiggins on 12-24-2024 Erythrocyte distribution width (RBC) [Ratio] 50.7 fl High 35.1-43.9 [facility] Glomerular filtration rate ( GFR) estimation/1.73 sq m using serum, plasma, or whole bOrdered By: Nando Wiggins on 12-24-2024 GFR/1.73 sq M.predicted among non-blacks MDRD (S/P/Bld) [Vol rate/Area] 10 mL/min/{1.73_m2} Low >60 [facility] Hematocrit Auto (Bld) [Volum e fraction]Ordered By: Nando Wiggins on 12-24-2024 Hematocrit (Bld) [Volume fraction] 31.5 % Low 40-54 [facility] Hemoglobin measurementOrdere d By: Nando Wiggins on 12-24-2024 Hemoglobin (Bld) [Mass/Vol] 10.0 g/dL Low 13.0-16.5 [facility] Immature granulocytes/100 WB C Auto (Bld)Ordered By: Nando Wiggins on 12-24-2024 Immature granulocytes/100 WBC (Bld) 0.600 % 0.0-0.9 [facility] MCV (mean corpuscular volume ) determinationOrdered By: Nando Wiggins on 12-24-2024 MCV (RBC) [Entitic vol] 91.3 fL 80-94 [facility] Mean corpuscular hemoglobin (MCH) determinationOrdered By: Nando Wiggins on 12-24-2024 MCH (RBC) [Entitic mass] 29.0 pg 27.0-32.0 [facility] Monocyte percentageOrdered B y: Nando Wiggins on 12-24-2024 Monocytes/100 WBC (Bld) 11.3 % High 0-10 [facility] Neutrophil percentageOrdered By: Nando Wiggins on 12-24-2024 Neutrophils/100 WBC (Bld) 65.4 % 47-70 [facility] Platelet countOrdered By: Kathie Wiggins on 12-24-2024 Platelets (Bld) [#/Vol] 180 10*3/uL 150-450 [facility] Potassium measurement (mass/ volume)Ordered By: Nando Wiggins on 12-24-2024 Potassium (Unsp spec) [Mass/Vol] 4.6 mmol/L 3.3-5.1 [facility] RBC Auto (Bld) [#/Vol]Ordere d By: Nando Wiggins on 12-24-2024 RBC (Bld) [#/Vol] 3.45 10*6/uL Low 4.6-6.2 [facility] Serum creatinine measurement (mass/volume)Ordered By: Nando Wiggins on 12-24-2024 Creatinine [Mass/Vol] 5.37 mg/dL High 0.70-1.20 [facility] Serum glucose measurement (m ass/volume)Ordered By: Nando Wiggins on 12-24-2024 Glucose [Mass/Vol] 131 mg/dL High 70-99 [facility] Serum or plasma calcium lilli urement (mass/volume)Ordered By: Nando Wiggins on 12-24-2024 Calcium [Mass/Vol] 9.1 mg/dL 7.6-11.0 [facility] Serum or plasma urea nitroge n measurement (mass/volume)Ordered By: Nando Wiggins on 12-24-2024 Urea nitrogen [Mass/Vol] 52 mg/dL High 4-19 [facility] Sodium levelOrdered By: Deb Wiggins on 12-24-2024 Sodium [Moles/Vol] 134 mmol/L 133-145 [facility] White blood cell (WBC) count Ordered By: Nando Wiggins on 12-24-2024 WBC (Bld) [#/Vol] 8.6 10*3/uL 4.4-11.0 [facility] Bilirubin directOrdered By: Nando Wiggins on 12-19-2024 Bilirubin.direct [Mass/Vol] 0.12 mg/dL 0.00-0.30 [facility] Bilirubin, totalOrdered By: Nando Wiggins on 12-19-2024 Bilirubin [Mass/Vol] 0.28 mg/dL 0.00-1.30 [facility] Hemoglobin A1c percentageOrd ered By: Nando Wiggins on 12-19-2024 HbA1c (Bld) [Mass fraction] 7.6 % High <5.7 [facility] No Panel InformationOrdered By: Nando Wiggins on 12-19-2024 16 U/L <38 [facility] Serum globulin measurementOr dered By: Nando Wiggins on 12-19-2024 Globulin (S) [Mass/Vol] 3.0 g/dL 2.2-4.[address] [facility] Serum or plasma alanine hawkins otransferase (ALT) measurementOrdered By: Nando Wiggins on 12-19-2024 ALT [Catalytic activity/Vol] 30 U/L <47 [facility] Serum or plasma albumin lilli urement (mass/volume)Ordered By: Nando Wiggins on 12-19-2024 Albumin [Mass/Vol] 3.6 g/dL 3.4-4.8 [facility] Serum or plasma alkaline penelope sphatase measurementOrdered By: Nando Wiggins on 12-19-2024 ALP [Catalytic activity/Vol] 69 U/L 40-129 [facility] Total proteinOrdered By: Sinan Wiggins on 12-19-2024 Protein [Mass/Vol] 6.6 g/dL 5.9-8.4 [facility] Vitamin B12 ser/plasOrdered By: Nando Wiggins on 12-19-2024 Cobalamin (Vitamin B12) [Mass/Vol] 777 pg/mL 180-914 [facility] Bilirubin directOrdered By: Nando Wiggins on 12-12-2024 Bilirubin.direct [Mass/Vol] 0.13 mg/dL 0.00-0.30 [facility] Bilirubin, totalOrdered By: Nando Wiggins on 12-12-2024 Bilirubin [Mass/Vol] 0.27 mg/dL 0.00-1.30 [facility] Hemoglobin A1c percentageOrd ered By: Nando Wiggins on 12-12-2024 HbA1c (Bld) [Mass fraction] 7.3 % High <5.7 [facility] No Panel InformationOrdered By: Nando Wiggins on 12-12-2024 33 U/L <38 [facility] Serum globulin measurementOr dered By: Nando Wiggins on 12-12-2024 Globulin (S) [Mass/Vol] 3.2 g/dL 2.2-4.[address] [facility] Serum or plasma alanine hawkins otransferase (ALT) measurementOrdered By: Nando Wiggins on 12-12-2024 ALT [Catalytic activity/Vol] 49 U/L High <47 [facility] Serum or plasma albumin lilli urement (mass/volume)Ordered By: Nando Wiggins on 12-12-2024 Albumin [Mass/Vol] 3.6 g/dL 3.4-4.8 [facility] Serum or plasma alkaline penelope sphatase measurementOrdered By: Nando Wiggins on 12-12-2024 ALP [Catalytic activity/Vol] 71 U/L 40-129 [facility] Total proteinOrdered By: Sinandesiree schmidt Rosalie on 12-12-2024 Protein [Mass/Vol] 6.8 g/dL 5.9-8.4 [facility] Vitamin B12 ser/plasOrdered By: Nando Wiggins on 12-12-2024 Cobalamin (Vitamin B12) [Mass/Vol] 719 pg/mL 180-914 [facility] CNPNon 12-11-2024 CNPN Normal [facility] Basic metabolic 2000 panelon 11-28-2024 Anion gap [Moles/Vol] 10 mmol/L Normal 8-15 [facility] Comment on above: Order Comment: Speci men Type: BLOOD SPECIMENOrdering Facility: [facility] Address: [address] [place] [address] Performed By: #### 2 4321-2, ####[facility] LABIA [id number] [place] [address] [place] Calcium [Mass/Vol] 8.8 mg/dL Normal 8.5-10.2 [facility] Comment on above: Order Comment: Speci men Type: BLOOD SPECIMENOrdering Facility: [facility] Address: [address] [place] [id number] Performed By: #### 2 4321-2, ####[facility] LABCLIA [id number] [place] [id number] [place] Chloride [Moles/Vol] 96 mmol/L Low 98-107 [facility] Comment on above: Order Comment: Speci men Type: BLOOD SPECIMENOrdering Facility: [facility] Address: [address] [place] [address] Performed By: #### 2 4321-2, ####[facility] LABIA [id number] [address] [address] [place] CO2 [Moles/Vol] 26 mmol/L Normal 22-30 [facility] Comment on above: Order Comment: Speci men Type: BLOOD SPECIMENOrdering Facility: [facility] Address: [address] [place] [address] Performed By: #### 2 432-2, ####[facility] LABIA [id number] [address] [address] [place] Creatinine [Mass/Vol] 2.74 mg/dL High 0.73-1.22 [facility] Comment on above: Order Comment: Speci men Type: BLOOD SPECIMENOrdering Facility: [facility] Address: [address] [place] [address] Performed By: #### 2 43205-24, ####[facility] LABIA [id number] [address] [address] [place] Creatinine and Glomerular filtration rate.predicted panel (S/P/Bld) 22 mL/min/1.73m??? Low >=60 [facility] Comment on above: Order Comment: Speci men Type: BLOOD SPECIMENOrdering Facility: [facility] Address: [address] [place] [address] Result Comment: Tessa mated Glomerular Filtration Rate [...] actual GFR. Performed By: #### 2 4321-2, ####[facility] LABIA [id number] [address] [address] [place] Glucose [Mass/Vol] 153 mg/dL High 74-99 [facility] Comment on above: Order Comment: Speci men Type: BLOOD SPECIMENOrdering Facility: [facility] Address: [address] [address] Result Comment: The [place] [employer] (ADA) provides guidance for [...] Standards of Medical Care in Diabetes 2016, [place] [employer]. Diabetes Care. 2016.39(Suppl 1). Performed By: #### 2 4320-06, ####[facility] LABCLIA [id number] [place] [address] [place] Potassium [Moles/Vol] 4.4 mmol/L Normal 3.7-5.1 [facility] Comment on above: Order Comment: Ruddyi men Type: BLOOD SPECIMENOrdering Facility: [facility] Address: [address] [address] Performed By: #### 2 4320-06, ####[facility] LABCLIA [id number] [place] [address] [place] Sodium [Moles/Vol] 132 mmol/L Low 136-144 [facility] Comment on above: Order Comment: Speci men Type: BLOOD SPECIMENOrdering Facility: [facility] Address: [address] [address] Performed By: #### 2 4320-06, ####[facility] LABCLIA [id number] [place] [address] [place] Urea nitrogen [Mass/Vol] 22 mg/dL Normal 9-24 [facility] Comment on above: Order Comment: Speci men Type: BLOOD SPECIMENOrdering Facility: [facility] Address: [address] [place] [address] Performed By: #### 2 4321-2, 08006-6 ####[facility] LABCLIA [id number] [facility] [address] [place] [address] [place] CASE MANAGEMon 11-28-2024 CASE MANAGEM Normal [facility] CBC panel Auto (Bld)on 11-28 Erythrocyte distribution width (RBC) [Ratio] 15.9 % High 11.5-15.0 [facility] Comment on above: Order Comment: Speci men Type: BLOOD SPECIMENOrdering Facility: [facility] Address: [address] [place] [address] Performed By: #### 5 8410-2 ####[facility] LABCLIA [id number] [address], [facility] [place] Hematocrit (Bld) [Volume fraction] 33.2 % Low 39.0-51.0 [facility] Comment on above: Order Comment: Speci men Type: BLOOD SPECIMENOrdering Facility: [facility] Address: [address] [place] [address] Performed By: #### 5 8410-2 ####[facility] LABCLIA [id number] [facility] [address] [place] [address] [place] Hemoglobin (Bld) [Mass/Vol] 10.4 g/dL Low 13.0-17.0 [facility] Comment on above: Order Comment: Speci men Type: BLOOD SPECIMENOrdering Facility: [facility] Address: [address] [place] [address] Performed By: #### 5 8410-2 ####[facility] LABCLIA [id number] [facility] [address] [place] [address] [place] MCH (RBC) [Entitic mass] 28.3 pg Normal 26.0-34.0 [facility] Comment on above: Order Comment: Speci men Type: BLOOD SPECIMENOrdering Facility: [facility] Address: [address] [place] [address] Performed By: #### 5 8410-2 ####[facility] LABIA [id number] [place] [address] [place] MCHC (RBC) [Mass/Vol] 31.3 g/dL Normal 30.5-36.0 [facility] Comment on above: Order Comment: Speci men Type: BLOOD SPECIMENOrdering Facility: [facility] Address: [address] [place] [address] Performed By: #### 5 8410-2 ####[facility] LABIA [id number] [place] [address] [place] MCV (RBC) [Entitic vol] 90.2 fL Normal 80.0-100.0 [facility] Comment on above: Order Comment: Speci men Type: BLOOD SPECIMENOrdering Facility: [facility] Address: [address] [place] [address] Performed By: #### 5 8410-2 ####[facility] LABIA [id number] [place] [address] [place] Nucleated RBC (Bld) [#/Vol] 10*3/uL Normal <0.01 [facility] Comment on above: Order Comment: Speci men Type: BLOOD SPECIMENOrdering Facility: [facility] Address: [address] [place] [address] Performed By: #### 5 8410-2 ####[facility] LABIA [id number] [place] [address] [place] Platelet mean volume (Bld) [Entitic vol] 12.8 fL High 9.0-12.7 [facility] Comment on above: Order Comment: Speci men Type: BLOOD SPECIMENOrdering Facility: [facility] Address: [address] [place] [address] Performed By: #### 5 8410-2 ####[facility] LABCLIA [id number] [place] [address] [place] Platelets (Bld) [#/Vol] 126 10*3/uL Low 150-400 [facility] Comment on above: Order Comment: Speci men Type: BLOOD SPECIMENOrdering Facility: [facility] Address: [address] [place] [address] Performed By: #### 5 8410-2 ####[facility] LABIA [id number] [place] [address] [place] RBC (Bld) [#/Vol] 3.68 10*6/uL Low 4.20-6.00 [facility] Comment on above: Order Comment: Speci men Type: BLOOD SPECIMENOrdering Facility: [facility] Address: [address] [place] [address] Performed By: #### 5 8410-2 ####[facility] LABIA [id number] [place] [address] [place] WBC (Bld) [#/Vol] 7.99 10*3/uL Normal 3.70-11.00 [facility] Comment on above: Order Comment: Speci men Type: BLOOD SPECIMENOrdering Facility: [facility] Address: [address] [place] [address] Performed By: #### 5 8410-2 ####[facility] LABIA [id number] [place] [id number] [place] CNDSon 11-28-2024 CNDS Normal [facility] CONSULT PROGon 11-28-2024 CONSULT PROG Normal [facility] Magnesium SerPl-mCncon 11-28 Magnesium [Mass/Vol] 2.1 mg/dL Normal 1.7-2.3 [facility] Comment on above: Order Comment: Speci men Type: BLOOD SPECIMENOrdering Facility: [facility] Address: [address] [place] [address] Performed By: #### 2 4321-2, 05393-9 ####[facility] LABIA [id number] [place] [address] [place] THERAPY NTon 11-28-2024 THERAPY NT Normal [facility] XR CHEST 1V FRONTAL PORTon 0 11-28-2024 XR CHEST 1V FRONTAL PORT Normal [facility] ALLIED HEALTHon 11-27-2024 ALLIED HEALTH Normal [facility] ARTERIAL BLOOD GASESon 11-27 Base excess Calc (Bld) [Moles/Vol] 4 mmol/L High 0-2 [facility] Comment on above: Order Comment: Speci men Type: ARTERIAL BLOOD SPECIMENOrdering Facility: [facility] Address: [address] [place] [address] Performed By: #### A LLBG ####[facility] LABCLIA [id number] [place] [address] [place] Body temperature 97.88 [degF] Normal [facility] Comment on above: Order Comment: Speci men Type: ARTERIAL BLOOD SPECIMENOrdering Facility: [facility] Address: [address] [place] [address] Performed By: #### A LLBG ####[facility] LABIA [id number] [place] [address] [place] Calcium.ionized (Bld) [Mass/Vol] 1.10 mmol/L Normal 1.08-1.30 [facility] Comment on above: Order Comment: Speci men Type: ARTERIAL BLOOD SPECIMENOrdering Facility: [facility] Address: [address] [place] [address] Performed By: #### A LLBG ####[facility] LABCLIA [id number] [place] [address] [place] Calcium.ionized adjusted to pH 7.4 (BldA) [Moles/Vol] 1.10 mmol/L Normal 1.08-1.30 [facility] Comment on above: Order Comment: Speci men Type: ARTERIAL BLOOD SPECIMENOrdering Facility: [facility] Address: [address] [place] [address] Performed By: #### A LLBG ####[facility] LABCLIA [id number] [address] [address] [place] Carboxyhemoglobin (BldA) [Mass fraction] 1.2 % Normal 0.0-2.0 [facility] Comment on above: Order Comment: Speci men Type: ARTERIAL BLOOD SPECIMENOrdering Facility: [facility] Address: [address] [place] [address] Result Comment: Carb oxyhemoglobin Reference Range for Smokers: 2.0-8.0% Performed By: #### A LLBG ####[facility] LABCLIA [id number] [place] [id number] [place] CO2 (Bld) [Partial pressure] 48 mm Hg High 36-46 [facility] Comment on above: Order Comment: Speci men Type: ARTERIAL BLOOD SPECIMENOrdering Facility: [facility] Address: [address] [place] [address] Performed By: #### A LLBG ####[facility] LABCLIA [id number] [place] [address] [place] CO2 adjusted to patient's actual temperature (Bld) [Partial pressure] 47 mmHg High 36-46 [facility] Comment on above: Order Comment: Speci men Type: ARTERIAL BLOOD SPECIMENOrdering Facility: [facility] [facility] Address: [address] [address] Performed By: #### A LLBG ####[facility] LABCLIA [id number] [place] [id number] [place] Glucose [Mass/Vol] 164 mg/dL High 60-105 [facility] Comment on above: Order Comment: Speci men Type: ARTERIAL BLOOD SPECIMENOrdering Facility: [facility] Address: [address] [place] [address] Performed By: #### A LLBG ####[facility] LABCLIA [id number] [place] [address] [place] HCO3 (Bld) [Moles/Vol] 29 mmol/L High 22-26 Cl [facility] Comment on above: Order Comment: Speci men Type: ARTERIAL BLOOD SPECIMENOrdering Facility: [facility] Address: [address] [place] [address] Performed By: #### A LLBG ####[facility] LABCLIA [id number] [place] [address] [place] Hematocrit (Bld) [Volume fraction] 32.8 % Low 39.0-51.0 [facility] Comment on above: Order Comment: Speci men Type: ARTERIAL BLOOD SPECIMENOrdering Facility: [facility] Address: [address] [place] [address] Performed By: #### A LLBG ####[facility] LABCLIA [id number] [place] [address] [place] Hemoglobin (Bld) [Mass/Vol] 10.6 g/dL Low 13.0-17.0 [facility] Comment on above: Order Comment: Speci men Type: ARTERIAL BLOOD SPECIMENOrdering Facility: [facility] Address: [address] [place] [address] Performed By: #### A LLBG ####[facility] LABCLIA [id number] [place] [id number] [place] Lactate [Moles/Vol] 1.2 mmol/L Normal 0.5-2.2 [facility] Comment on above: Order Comment: Speci men Type: ARTERIAL BLOOD SPECIMENOrdering Facility: [facility] Address: [address] [place] [address] Performed By: #### A LLBG ####[facility] LABCLIA [id number] [place] [id number] [place] Methemoglobin (Bld) [Mass fraction] 1.5 % Normal 0.0-1.5 [facility] Comment on above: Order Comment: Speci men Type: ARTERIAL BLOOD SPECIMENOrdering Facility: [facility] Address: [address] [place] [id number] Performed By: #### A LLBG ####[facility] LABCLIA [id number] [address] [address] [place] O2 THERAPY RA=Room Air Normal [facility] Comment on above: Order Comment: Speci men Type: ARTERIAL BLOOD SPECIMENOrdering Facility: [facility] Address: [address] [place] [id number] Performed By: #### A LLBG ####[facility] LABCLIA [id number] [address] [address] [place] Oxygen (Bld) [Partial pressure] 114 mm Hg High 85-95 [facility] Comment on above: Order Comment: Speci men Type: ARTERIAL BLOOD SPECIMENOrdering Facility: [facility] Address: [address] [place] [id number] Performed By: #### A LLBG ####[facility] LABCLIA [id number] [address] [address] [place] Oxygen adjusted to patient's actual temperature (Bld) [Partial pressure] 111 mmHg High 85-95 [facility] Comment on above: Order Comment: Speci men Type: ARTERIAL BLOOD SPECIMENOrdering Facility: [facility] Address: [address] [place] [id number] Performed By: #### A LLBG ####[facility] LABCLIA [id number] [address] [address] [place] Oxyhemoglobin (BldA) [Mass fraction] 95 % Normal 95-98 [facility] Comment on above: Order Comment: Speci men Type: ARTERIAL BLOOD SPECIMENOrdering Facility: [facility] Address: [address] [place] [id number] Performed By: #### A LLBG ####[facility] LABCLIA [id number] [place] [address] [place] pH (Bld) 7.40 [pH] Normal 7.35-7.45 [facility] Comment on above: Order Comment: Speci men Type: ARTERIAL BLOOD SPECIMENOrdering Facility: [facility] Address: [address] [place] [address] Performed By: #### A LLBG ####[facility] LABCLIA [id number] [place] [address] [place] pH adjusted to patient's actual temperature (Bld) 7.41 Normal 7.35-7.45 [facility] Comment on above: Order Comment: Speci men Type: ARTERIAL BLOOD SPECIMENOrdering Facility: [facility] Address: [address] [place] [address] Performed By: #### A LLBG ####[facility] LABCLIA [id number] [place] [address] [place] PO2 / FIO2 RATIO 543 mmHg Normal >300 [facility] Comment on above: Order Comment: Speci men Type: ARTERIAL BLOOD SPECIMENOrdering Facility: [facility] Address: [address] [place] [address] Performed By: #### A LLBG ####[facility] LABCLIA [id number] [place] [address] [place] Potassium [Moles/Vol] 4.3 mmol/L Normal 3.5-5.0 [facility] Comment on above: Order Comment: Speci men Type: ARTERIAL BLOOD SPECIMENOrdering Facility: [facility] Address: [address] [place] [address] Performed By: #### A LLBG ####[facility] LABCLIA [id number] [place] [id number] [place] Sodium [Moles/Vol] 132 mmol/L Low 136-144 [facility] Comment on above: Order Comment: Speci men Type: ARTERIAL BLOOD SPECIMENOrdering Facility: [facility] Address: [address] [place] [address] Performed By: #### A LLBG ####[facility] LABCLIA [id number] [place] [address] [place] BUN p dialysis SerPl-mCncon 11-27-2024 Urea nitrogen post dialysis [Mass/Vol] 18 mg/dL Normal 9-24 [facility] Comment on above: Order Comment: Speci men Type: BLOOD SPECIMENOrdering Facility: [facility] Address: [address] [place] [address] Performed By: #### 1 1064-3 ####[facility] LABCLIA [id number] [place] [address] [place] [facility] nitrogen pre dialysis [Mass/Vol] 50 mg/dL High 9-24 [facility] Comment on above: Order Comment: Speci men Type: BLOOD SPECIMENOrdering Facility: [facility] Address: [address] [place] [address] Performed By: #### 1 1065-0 ####[facility] LABCLIA [id number] [place] [address] [place] Basic Metabolic Profile (BMP )on 11-27-2024 BUN Normal 4-19 [facility] Comment on above: Result Comment: Canc elled via OM: MD Ordered Performed By: #### L 100.0100, L500.2500 ####[facility] [address] [place], [address] BUN/CRE Normal 10-20 [facility] Comment on above: Result Comment: Canc elled via OM: MD Ordered Performed By: #### L 100.0100, L500.2500 ####[facility] [address] [place], [address] Calcium Normal 7.6-11.0 [facility] Comment on above: Result Comment: Canc elled via OM: MD Ordered Performed By: #### L 100.0100, L500.2500 ####[facility] [address] [place], [address] CL Normal 98-108 [facility] Comment on above: Result Comment: Canc elled via OM: MD Ordered Performed By: #### L 100.0100, L500.2500 ####[facility] [address] [place], [address] CO2 Normal 21.0-32.0 [facility] Comment on above: Result Comment: Canc elled via OM: MD Ordered Performed By: #### L 100.0100, L500.2500 ####[facility] [address] [place], [address] CREAT,SERUM Normal 0.70-1.20 [facility] Comment on above: Result Comment: Canc elled via OM: MD Ordered Performed By: #### L 100.0100, L500.2500 ####[facility] [address] [place], [address] eGFR Normal >60 [facility] Comment on above: Result Comment: Canc elled via OM: MD Ordered Performed By: #### L 100.0100, L500.2500 ####[facility] [address] [place], [address] GAP Normal 5-15 [facility] Comment on above: Result Comment: Canc elled via OM: MD Ordered Performed By: #### L 100.0100, L500.2500 ####[facility] [address] [place], [address] GLU Normal 70-99 [facility] Comment on above: Result Comment: Canc elled via OM: MD Ordered Performed By: #### L 100.0100, L500.2500 ####[facility] [address] [place], [address] Potassium Normal 3.3-5.1 [facility] Comment on above: Result Comment: Canc elled via OM: MD Ordered Performed By: #### L 100.0100, L500.2500 ####[facility] [address] [place], [address] Basic Metabolic Profile (BMP) Normal 133-145 [facility] Comment on above: Result Comment: Canc elled via OM: MD Ordered Performed By: #### L 100.0100, L500.2500 ####[facility] [address] [place], [address] CASE MANAGEMon 11-27-2024 CASE MANAGEM Normal [facility] CBC W/Diff, Automatedon 07-0 Absolute Neut Normal 2.0-7.7 [facility] Comment on above: Result Comment: Canc elled via OM: MD Ordered Performed By: #### L 100.0100, L500.2500 ####[facility] [address] [place], [address] HCT Normal 40-54 [facility] Comment on above: Result Comment: Canc elled via OM: MD Ordered Performed By: #### L 100.0100, L500.2500 ####[facility] [address] [place], [address] HGB Normal 13.0-16.5 [facility] Comment on above: Result Comment: Canc elled via OM: MD Ordered Performed By: #### L 100.0100, L500.2500 ####[facility] [address] [place], [address] MCH Normal 27.0-32.0 [facility] Comment on above: Result Comment: Canc elled via OM: MD Ordered Performed By: #### L 100.0100, L500.2500 ####[facility] [address] [place], [address] MCHC Normal 32-36 [facility] Comment on above: Result Comment: Canc elled via OM: MD Ordered Performed By: #### L 100.0100, L500.2500 ####[facility] [address] [place], [address] MCV Normal 80-94 [facility] Comment on above: Result Comment: Canc elled via OM: MD Ordered Performed By: #### L 100.0100, L500.2500 ####[facility] [address] [place], [address] NEUT% Normal 47-70 [facility] Comment on above: Result Comment: Canc elled via OM: MD Ordered Performed By: #### L 100.0100, L500.2500 ####[facility] [address] [place], [address] PLT Normal 150-450 [facility] Comment on above: Result Comment: Canc elled via OM: MD Ordered Performed By: #### L 100.0100, L500.2500 ####[facility] [address] [place], [address] RBC Normal 4.6-6.2 [facility] Comment on above: Result Comment: Canc elled via OM: MD Ordered Performed By: #### L 100.0100, L500.2500 ####[facility] [address] [place], [address] RDW CV Normal 11.6-14.6 [facility] Comment on above: Result Comment: Canc elled via OM: MD Ordered Performed By: #### L 100.0100, L500.2500 ####[facility] [address] [place], [address] RDW SD Normal 35.1-43.9 [facility] Comment on above: Result Comment: Canc elled via OM: MD Ordered Performed By: #### L 100.0100, L500.2500 ####[facility] [address] [place], [address] WBC Normal 4.4-11.0 [facility] Comment on above: Result Comment: Canc elled via OM: MD Ordered Performed By: #### L 100.0100, L500.2500 ####[facility] [address] [place], [address] CBC panel Auto (Bld)on 11-27 Erythrocyte distribution width (RBC) [Ratio] 15.8 % High 11.5-15.0 [facility] Comment on above: Order Comment: Speci men Type: BLOOD SPECIMENOrdering Facility: [facility] Address: [address] [place] [address] Performed By: #### 5 8410-2 ####[facility] LABCLIA [id number] [place] [address] [place] Hematocrit (Bld) [Volume fraction] 31.4 % Low 39.0-51.0 [facility] Comment on above: Order Comment: Speci men Type: BLOOD SPECIMENOrdering Facility: [facility] Address: [address] [place] [address] Performed By: #### 5 8410-2 ####[facility] LABCLIA [id number] [place] [address] [place] Hemoglobin (Bld) [Mass/Vol] 10.1 g/dL Low 13.0-17.0 [facility] Comment on above: Order Comment: Speci men Type: BLOOD SPECIMENOrdering Facility: [facility] Address: [address] [place] [address] Performed By: #### 5 8410-2 ####[facility] LABCLIA [id number] [address] [address] [place] MCH (RBC) [Entitic mass] 28.4 pg Normal 26.0-34.0 [facility] Comment on above: Order Comment: Speci men Type: BLOOD SPECIMENOrdering Facility: [facility] Address: [address] [place] [address] Performed By: #### 5 8410-2 ####[facility] LABIA [id number] [place] [address] [place] MCHC (RBC) [Mass/Vol] 32.2 g/dL Normal 30.5-36.0 [facility] Comment on above: Order Comment: Speci men Type: BLOOD SPECIMENOrdering Facility: [facility] Address: [address] [place] [address] Performed By: #### 5 8410-2 ####[facility] LABIA [id number] [place] [address] [place] MCV (RBC) [Entitic vol] 88.2 fL Normal 80.0-100.0 [facility] Comment on above: Order Comment: Speci men Type: BLOOD SPECIMENOrdering Facility: [facility] Address: [address] [place] [address] Performed By: #### 5 8410-2 ####[facility] LABIA [id number] [place] [address] [place] Nucleated RBC (Bld) [#/Vol] 10*3/uL Normal <0.01 [facility] Comment on above: Order Comment: Speci men Type: BLOOD SPECIMENOrdering Facility: [facility] Address: [address] [place] [address] Performed By: #### 5 8410-2 ####[facility] LABIA [id number] [place] [address] [place] Platelet mean volume (Bld) [Entitic vol] 12.9 fL High 9.0-12.7 [facility] Comment on above: Order Comment: Speci men Type: BLOOD SPECIMENOrdering Facility: [facility] Address: [address] [place], [place] [address] Performed By: #### 5 8410-2 ####[facility] LABCLIA [id number] [place] [address] [place] Platelets (Bld) [#/Vol] 141 10*3/uL Low 150-400 [facility] Comment on above: Order Comment: Speci men Type: BLOOD SPECIMENOrdering Facility: [facility] Address: [address] [place] [address] Performed By: #### 5 8410-2 ####[facility] LABIA [id number] [place] [address] [place] RBC (Bld) [#/Vol] 3.56 10*6/uL Low 4.20-6.00 [facility] Comment on above: Order Comment: Speci men Type: BLOOD SPECIMENOrdering Facility: [facility] Address: [address] [place] [address] Performed By: #### 5 8410-2 ####[facility] LABIA [id number] [place] [id number] [place] WBC (Bld) [#/Vol] 8.24 10*3/uL Normal 3.70-11.00 [facility] Comment on above: Order Comment: Speci men Type: BLOOD SPECIMENOrdering Facility: [facility] Address: [address] [place] [address] Performed By: #### 5 8410-2 ####[facility] LABIA [id number] [place] [id number] [place] CONSULT PROGon 11-27-2024 CONSULT PROG Normal [facility] CONSULT PROG Normal [facility] Comprehensive metabolic 2000 panelon 11-27-2024 Albumin [Mass/Vol] 3.1 g/dL Low 3.9-4.9 [facility] Comment on above: Order Comment: Speci men Type: BLOOD SPECIMENOrdering Facility: [facility] Address: [address] [place] [id number] Performed By: #### 2 4323-8, 05825-9, 2777-1 ####[facility] LABCLIA [id number] [place] [id number] [place] ALP [Catalytic activity/Vol] 62 U/L Normal 38-113 [facility] Comment on above: Order Comment: Speci men Type: BLOOD SPECIMENOrdering Facility: [facility] Address: [address] [place] [address] Performed By: #### 2 4323-8, 12776-8, 2776- ####[facility] LABIA [id number] [place] [address] [place] ALT [Catalytic activity/Vol] 30 U/L Normal 10-54 [facility] Comment on above: Order Comment: Speci men Type: BLOOD SPECIMENOrdering Facility: [facility] Address: [address] [place] [address] Performed By: #### 2 4323-8, 19996-8, 277- ####[facility] LABIA [id number] [place] [id number] [place] Anion gap [Moles/Vol] 13 mmol/L Normal 8-15 [facility] Comment on above: Order Comment: Speci men Type: BLOOD SPECIMENOrdering Facility: [facility] Address: [address] [place] [address] Performed By: #### 2 4323-8, 38789-6, 277- ####[facility] LABIA [id number] [place] [id number] [place] AST [Catalytic activity/Vol] 23 U/L Normal 14-40 [facility] Comment on above: Order Comment: Speci men Type: BLOOD SPECIMENOrdering Facility: [facility] Address: [address] [place] [address] Result Comment: Resu lts may be falsely increased due to interference from hemolysis. Suggest reorder as clinically indicated. Performed By: #### 2 4323-8, , 2776-05 ####[facility] LABCLIA [id number] [address] [address] [place] Bilirubin [Mass/Vol] 0.2 mg/dL Normal 0.2-1.3 [facility] Comment on above: Order Comment: Speci men Type: BLOOD SPECIMENOrdering Facility: [facility] Address: [address] [place] [address] Performed By: #### 2 4323-8, , 2776-05 ####[facility] LABCLIA [id number] [place] [id number] [place] Calcium [Mass/Vol] 8.6 mg/dL Normal 8.5-10.2 [facility] Comment on above: Order Comment: Speci men Type: BLOOD SPECIMENOrdering Facility: [facility] Address: [address] [place] [address] Performed By: #### 2 4323-8, , 2776-05 ####[facility] LABIA [id number] [place] [id number] [place] Chloride [Moles/Vol] 93 mmol/L Low 98-107 [facility] Comment on above: Order Comment: Speci men Type: BLOOD SPECIMENOrdering Facility: [facility] Address: [address] [place], [place] [address] Performed By: #### 2 4323-8, , 2776-05 ####[facility] LABIA [id number] [address] [address] [place] CO2 [Moles/Vol] 27 mmol/L Normal 22-30 [facility] Comment on above: Order Comment: Speci men Type: BLOOD SPECIMENOrdering Facility: [facility] Address: [address] [place], [place] [address] Performed By: #### 2 4323-8, , 2776-05 ####[facility] LABIA [id number] [address] [address] [place] Creatinine [Mass/Vol] 4.19 mg/dL High 0.73-1.22 [facility] Comment on above: Order Comment: Speclena aleman Type: BLOOD SPECIMENOrdering Facility: [facility] Address: [address] [place] [address] Performed By: #### 2 4323-8, , 2776-05 ####[facility] LABIA [id number] [place] [id number] [place] Creatinine and Glomerular filtration rate.predicted panel (S/P/Bld) 13 mL/min/1.73m??? Low >=60 [facility] Comment on above: Order Comment: Lesvia aleman Type: BLOOD SPECIMENOrdering Facility: [facility] Address: [address] [place] [address] Result Comment: Tessa mated Glomerular Filtration Rate [...] Performed By: #### 2 4323-8, , 2776-05 ####[facility] LABIA [id number] [address] [address] [place] Glucose [Mass/Vol] 174 mg/dL High 74-99 [facility] Comment on above: Order Comment: Ruddyi ash Type: BLOOD SPECIMENOrdering Facility: [facility] Address: [address] [place] [address] Result Comment: The [place] [employer] (ADA) provides guidance for [...] Standards of Medical Care in Diabetes 2016, [place] [employer]. Diabetes Care. 2016.39(Suppl 1). Performed By: #### 2 4323-8, , 2776-05 ####[facility] LABCLIA [id number] [place] [address] [place] Potassium [Moles/Vol] 4.2 mmol/L Normal 3.7-5.1 [facility] Comment on above: Order Comment: Speci men Type: BLOOD SPECIMENOrdering Facility: [facility] Address: [address] [place] [address] Performed By: #### 2 4323-8, , 2776-05 ####[facility] LABCLIA [id number] [place] [address] [place] Protein [Mass/Vol] 6.0 g/dL Low 6.3-8.0 [facility] Comment on above: Order Comment: Speci men Type: BLOOD SPECIMENOrdering Facility: [facility] Address: [address] [address] Performed By: #### 2 4323-8, , 2776-05 ####[facility] LABCLIA [id number] [address] [address] [place] Sodium [Moles/Vol] 133 mmol/L Low 136-144 [facility] Comment on above: Order Comment: Speci men Type: BLOOD SPECIMENOrdering Facility: [facility] Address: [address] [place] [address] Performed By: #### 2 4323-8, , 2776-05 ####[facility] LABCLIA [id number] [address] [address] [place] Urea nitrogen [Mass/Vol] 43 mg/dL High 9-24 [facility] Comment on above: Order Comment: Speci men Type: BLOOD SPECIMENOrdering Facility: [facility] Address: [address] [place] [address] Performed By: #### 2 4323-8, 60733-1, 2776- ####[facility] LABCLIA [id number] [place] [id number] [place] Magnesium SerPl-mCncon 11-27 Magnesium [Mass/Vol] 2.2 mg/dL Normal 1.7-2.3 [facility] Comment on above: Order Comment: Speci men Type: BLOOD SPECIMENOrdering Facility: [facility] Address: [address] [place] [address] Performed By: #### 2 4323-8, , 2776-05 ####[facility] LABCLIA [id number] [place] [id number] [place] Phosphate SerPl-mCncon 11-27 Phosphate [Mass/Vol] 5.9 mg/dL High 2.7-4.8 [facility] Comment on above: Order Comment: Speci men Type: BLOOD SPECIMENOrdering Facility: [facility] Address: [address] [place] [address] Result Comment: Resu lt rechecked. Performed By: #### 2 4323-8, , 2776-05 ####[facility] LABCLIA [id number] [place] [id number] [place] TYPE + SCREENon 11-27-2024 ABO A Normal [facility] Comment on above: Order Comment: Speci men Type: BLOOD SPECIMENOrdering Facility: [facility] Address: [address] [place] [address] Performed By: #### T SCR ####[facility] BLOOD BANKCLIA [id number] [address] [address] [place] Rh Nom (Bld) Positive Normal [facility] Comment on above: Order Comment: Speci men Type: BLOOD SPECIMENOrdering Facility: [facility] Address: [address] [place] [address] Performed By: #### T SCR ####[facility] BLOOD BANKCLIA [id number] [place] [address] [place] TYPE AND SCREEN EXPIRATION 11/30/2024 23:59 Normal [facility] Comment on above: Order Comment: Speci men Type: BLOOD SPECIMENOrdering Facility: [facility] Address: [address] [place] [address] Performed By: #### T SCR ####[facility] BLOOD BANKCLIA [id number] [address] [place] Urea nitrogen post dialysis [Mass/Vol]on 11-27-2024 UREA REDUCTION RATIO WITH BUNPR 64 % Normal [facility] Comment on above: Order Comment: Speci men Type: BLOOD SPECIMENOrdering Facility: [facility] Address: [address] [place] [address] Performed By: #### 1 [id number] ####[facility] LABCLIA [id number] [place] [id number] [place] XR CHEST 1V FRONTAL PORTon 0 11-27-2024 XR CHEST 1V FRONTAL PORT Normal [facility] XR CHEST 1V FRONTAL PORT Normal [facility] ANES POSTPROC EVALon 025 ANES POSTPROC EVAL Normal [facility] ANES PRE-OPon 11-26-2024 ANES PRE-OP Normal [facility] ARTERIAL BLOOD GASESon 11-26 Base excess Calc (Bld) [Moles/Vol] 4 mmol/L High 0-2 [facility] Comment on above: Order Comment: Speci men Type: ARTERIAL BLOOD SPECIMENOrdering Facility: [facility] Address: [address] [place], [place] [id number] Performed By: #### A LLBG ####[facility] LABCLIA [id number] [place] [address] [place] Body temperature 98.6 [degF] Normal [facility] Comment on above: Order Comment: Speci men Type: ARTERIAL BLOOD SPECIMENOrdering Facility: [facility] Address: [address] [place] [address] Performed By: #### A LLBG ####[facility] LABCLIA [id number] [place] [address] [place] Calcium.ionized (Bld) [Mass/Vol] 1.13 mmol/L Normal 1.08-1.30 [facility] Comment on above: Order Comment: Speci men Type: ARTERIAL BLOOD SPECIMENOrdering Facility: [facility] Address: [address] [place] [address] Performed By: #### A LLBG ####[facility] LABCLIA [id number] [place] [address] [place] Calcium.ionized adjusted to pH 7.4 (BldA) [Moles/Vol] 1.13 mmol/L Normal 1.08-1.30 [facility] Comment on above: Order Comment: Speci men Type: ARTERIAL BLOOD SPECIMENOrdering Facility: [facility] Address: [address] [place] [address] Performed By: #### A LLBG ####[facility] LABIA [id number] [place] [address] [place] Carboxyhemoglobin (BldA) [Mass fraction] 0.0 % Normal 0.0-2.0 [facility] Comment on above: Order Comment: Speci men Type: ARTERIAL BLOOD SPECIMENOrdering Facility: [facility] Address: [address] [place] [address] Result Comment: Carb oxyhemoglobin Reference Range for Smokers: 2.0-8.0% Performed By: #### A LLBG ####[facility] LABCLIA [id number] [address] [place] [address] [place] CO2 (Bld) [Partial pressure] 48 mm Hg High 36-46 [facility] Comment on above: Order Comment: Speci men Type: ARTERIAL BLOOD SPECIMENOrdering Facility: [facility] Address: [address] [place] [address] Performed By: #### A LLBG ####[facility] LABCLIA [id number] [place] [address] [place] Glucose [Mass/Vol] 146 mg/dL High 60-105 [facility] Comment on above: Order Comment: Speci men Type: ARTERIAL BLOOD SPECIMENOrdering Facility: [facility] Address: [address] [place] [address] Performed By: #### A LLBG ####[facility] LABCLIA [id number] [place] [id number] [place] HCO3 (Bld) [Moles/Vol] 29 mmol/L High 22-26 [facility] Comment on above: Order Comment: Speci men Type: ARTERIAL BLOOD SPECIMENOrdering Facility: [facility] Address: [address] [place] [address] Performed By: #### A LLBG ####[facility] LABCLIA [id number] [place] [id number] [place] Hematocrit (Bld) [Volume fraction] 32.1 % Low 39.0-51.0 [facility] Comment on above: Order Comment: Speci men Type: ARTERIAL BLOOD SPECIMENOrdering Facility: [facility] Address: [address] [place] [address] Performed By: #### A LLBG ####[facility] LABCLIA [id number] [facility] [place] [id number] [place] Hemoglobin (Bld) [Mass/Vol] 10.4 g/dL Low 13.0-17.0 [facility] Comment on above: Order Comment: Speci men Type: ARTERIAL BLOOD SPECIMENOrdering Facility: [facility] Address: [address] [place] [address] Performed By: #### A LLBG ####[facility] LABCLIA [id number] [address] [address] [place] Lactate [Moles/Vol] 0.7 mmol/L Normal 0.5-2.2 [facility] Comment on above: Order Comment: Speci men Type: ARTERIAL BLOOD SPECIMENOrdering Facility: [facility] Address: [address] [place] [address] Performed By: #### A LLBG ####[facility] LABCLIA [id number] [place] [address] [place] LITERS 2 Liters/min Normal [facility] Comment on above: Order Comment: Speci men Type: ARTERIAL BLOOD SPECIMENOrdering Facility: [facility] Address: [address] [place] [address] Performed By: #### A LLBG ####[facility] LABCLIA [id number] [place] [address] [place] Methemoglobin (Bld) [Mass fraction] 0.5 % Normal 0.0-1.5 [facility] Comment on above: Order Comment: Speci men Type: ARTERIAL BLOOD SPECIMENOrdering Facility: [facility] Address: [address] [place] [address] Performed By: #### A LLBG ####[facility] LABCLIA [id number] [place] [id number] [place] O2 THERAPY [place] = Nasal Cannula Normal [facility] Comment on above: Order Comment: Speci men Type: ARTERIAL BLOOD SPECIMENOrdering Facility: [facility] Address: [address] [place], [place] [address] Performed By: #### A LLBG ####[facility] LABCLIA [id number] [address] [address] [place] Oxygen (Bld) [Partial pressure] 158 mm Hg High 85-95 [facility] Comment on above: Order Comment: Speci men Type: ARTERIAL BLOOD SPECIMENOrdering Facility: [facility] Address: [address] [place] [address] Performed By: #### A LLBG ####[facility] LABCLIA [id number] [place] [address] [place] Oxyhemoglobin (BldA) [Mass fraction] 97 % Normal 95-98 [facility] Comment on above: Order Comment: Speci men Type: ARTERIAL BLOOD SPECIMENOrdering Facility: [facility] Address: [address] [place] [address] Performed By: #### A LLBG ####[facility] LABCLIA [id number] [place] [id number] [place] pH (Bld) 7.40 [pH] Normal 7.35-7.45 [facility] Comment on above: Order Comment: Speci men Type: ARTERIAL BLOOD SPECIMENOrdering Facility: [facility] Address: [address] [place] [address] Performed By: #### A LLBG ####[facility] LABCLIA [id number] [place] [address] [place] Potassium [Moles/Vol] 3.8 mmol/L Normal 3.5-5.0 [facility] Comment on above: Order Comment: Speci men Type: ARTERIAL BLOOD SPECIMENOrdering Facility: [facility] Address: [address] [place] [address] Performed By: #### A LLBG ####[facility] LABIA [id number] [place] [id number] [place] Sodium [Moles/Vol] 134 mmol/L Low 136-144 [facility] Comment on above: Order Comment: Speci men Type: ARTERIAL BLOOD SPECIMENOrdering Facility: [facility] Address: [address] [place], [place] [address] Performed By: #### A LLBG ####[facility] LABCLIA [id number] [place] [address] [place] Base excess Calc (Bld) [Moles/Vol] 4 mmol/L High 0-2 [facility] Comment on above: Order Comment: Speci men Type: ARTERIAL BLOOD SPECIMENOrdering Facility: [facility] Address: [address] [place] [address] Performed By: #### A LLBG ####[facility] LABCLIA [id number] [place] [address] [place] Body temperature 97.16 [degF] Normal [facility] Comment on above: Order Comment: Speci men Type: ARTERIAL BLOOD SPECIMENOrdering Facility: [facility] Address: [address] [place] [address] Performed By: #### A LLBG ####[facility] LABCLIA [id number] [place] [address] [place] Calcium.ionized (Bld) [Mass/Vol] 1.11 mmol/L Normal 1.08-1.30 [facility] Comment on above: Order Comment: Speci men Type: ARTERIAL BLOOD SPECIMENOrdering Facility: [facility] Address: [address] [place] [address] Performed By: #### A LLBG ####[facility] LABCLIA [id number] [place] [address] [place] Calcium.ionized adjusted to pH 7.4 (BldA) [Moles/Vol] 1.10 mmol/L Normal 1.08-1.30 [facility] Comment on above: Order Comment: Speci men Type: ARTERIAL BLOOD SPECIMENOrdering Facility: [facility] Address: [address] [place] [address] Performed By: #### A LLBG ####[facility] LABCLIA [id number] [place] [id number] [place] Carboxyhemoglobin (BldA) [Mass fraction] 0.9 % Normal 0.0-2.0 [facility] Comment on above: Order Comment: Speci men Type: ARTERIAL BLOOD SPECIMENOrdering Facility: [facility] Address: [address] [place] [address] Result Comment: Carb oxyhemoglobin Reference Range for Smokers: 2.0-8.0% Performed By: #### A LLBG ####[facility] LABCLIA [id number] [place] [address] [place] CO2 (Bld) [Partial pressure] 48 mm Hg High 36-46 [facility] Comment on above: Order Comment: Speci men Type: ARTERIAL BLOOD SPECIMENOrdering Facility: [facility] Address: [address] [place] [address] Performed By: #### A LLBG ####[facility] LABCLIA [id number] [address] [place] CO2 adjusted to patient's actual temperature (Bld) [Partial pressure] 46 mmHg Normal 36-46 [facility] Comment on above: Order Comment: Speci men Type: ARTERIAL BLOOD SPECIMENOrdering Facility: [facility] Address: [address] [place] [address] Performed By: #### A LLBG ####[facility] LABCLIA [id number] [place] [address] [place] Glucose [Mass/Vol] 105 mg/dL Normal 60-105 [facility] Comment on above: Order Comment: Speci men Type: ARTERIAL BLOOD SPECIMENOrdering Facility: [facility] Address: [address] [place] [address] Performed By: #### A LLBG ####[facility] LABCLIA [id number] [place] [id number] [place] HCO3 (Bld) [Moles/Vol] 29 mmol/L High 22-26 [facility] Comment on above: Order Comment: Speci men Type: ARTERIAL BLOOD SPECIMENOrdering Facility: [facility] Address: [address] [place] [address] Performed By: #### A LLBG ####[facility] LABCLIA [id number] [place] [address] [place] Hematocrit (Bld) [Volume fraction] 33.0 % Low 39.0-51.0 [facility] Comment on above: Order Comment: Speci men Type: ARTERIAL BLOOD SPECIMENOrdering Facility: [facility] Address: [address] [place] [address] Performed By: #### A LLBG ####[facility] LABIA [id number] [place] [address] [place] Hemoglobin (Bld) [Mass/Vol] 10.7 g/dL Low 13.0-17.0 [facility] Comment on above: Order Comment: Speci men Type: ARTERIAL BLOOD SPECIMENOrdering Facility: [facility] Address: [address] [place] [address] Performed By: #### A LLBG ####[facility] LABCLIA [id number] [place] [address] [place] Lactate [Moles/Vol] 0.7 mmol/L Normal 0.5-2.2 [facility] Comment on above: Order Comment: Speci men Type: ARTERIAL BLOOD SPECIMENOrdering Facility: [facility] Address: [address] [place] [address] Performed By: #### A LLBG ####[facility] LABCLIA [id number] [place] [address] [place] LITERS 4 Liters/min Normal [facility] Comment on above: Order Comment: Speci men Type: ARTERIAL BLOOD SPECIMENOrdering Facility: [facility] Address: [address] [place] [address] Performed By: #### A LLBG ####[facility] LABCLIA [id number] [address] [place] [address] [place] Methemoglobin (Bld) [Mass fraction] 1.0 % Normal 0.0-1.5 [facility] Comment on above: Order Comment: Speci men Type: ARTERIAL BLOOD SPECIMENOrdering Facility: [facility] Address: [address] [place] [id number] Performed By: #### A LLBG ####[facility] LABCLIA [id number] [address] [address] [place] O2 THERAPY [place] = Nasal Cannula Normal [facility] Comment on above: Order Comment: Speci men Type: ARTERIAL BLOOD SPECIMENOrdering Facility: [facility] Address: [address] [place] [id number] Performed By: #### A LLBG ####[facility] LABCLIA [id number] [address] [address] [place] Oxygen (Bld) [Partial pressure] 154 mm Hg High 85-95 [facility] Comment on above: Order Comment: Speci men Type: ARTERIAL BLOOD SPECIMENOrdering Facility: [facility] Address: [address] [place] [id number] Performed By: #### A LLBG ####[facility] LABCLIA [id number] [address] [address] [place] Oxygen adjusted to patient's actual temperature (Bld) [Partial pressure] 150 mmHg High 85-95 [facility] Comment on above: Order Comment: Speci men Type: ARTERIAL BLOOD SPECIMENOrdering Facility: [facility] Address: [address] [place] [address] Performed By: #### A LLBG ####[facility] LABCLIA [id number] [address] [address] [place] Oxyhemoglobin (BldA) [Mass fraction] 97 % Normal 95-98 [facility] Comment on above: Order Comment: Speci men Type: ARTERIAL BLOOD SPECIMENOrdering Facility: [facility] Address: [address] [place] [address] Performed By: #### A LLBG ####[facility] LABIA [id number] [place] [address] [place] pH (Bld) 7.40 [pH] Normal 7.35-7.45 [facility] Comment on above: Order Comment: Speci men Type: ARTERIAL BLOOD SPECIMENOrdering Facility: [facility] Address: [address] [place] [address] Performed By: #### A LLBG ####[facility] LABIA [id number] [place] [address] [place] pH adjusted to patient's actual temperature (Bld) 7.41 Normal 7.35-7.45 [facility] Comment on above: Order Comment: Speci men Type: ARTERIAL BLOOD SPECIMENOrdering Facility: [facility] Address: [address] [place] [address] Performed By: #### A LLBG ####[facility] LABIA [id number] [place] [id number] [place] Potassium [Moles/Vol] 3.7 mmol/L Normal 3.5-5.0 [facility] Comment on above: Order Comment: Speci men Type: ARTERIAL BLOOD SPECIMENOrdering Facility: [facility] Address: [address] [place] [address] Performed By: #### A LLBG ####[facility] LABIA [id number] [place] [id number] [place] Sodium [Moles/Vol] 134 mmol/L Low 136-144 [facility] Comment on above: Order Comment: Speci men Type: ARTERIAL BLOOD SPECIMENOrdering Facility: [facility] Address: [address] [place] [address] Performed By: #### A LLBG ####[facility] LABIA [id number] [place] [id number] [place] Base deficit (BldA) [Moles/Vol] -1 mmol/L Normal -2-0 [facility] Comment on above: Order Comment: Speci men Type: ARTERIAL BLOOD SPECIMENOrdering Facility: [facility] Address: [address] [place] [address] Performed By: #### A LLBG ####[facility] LABCLIA [id number] [place] [address] [place] Body temperature 97.7 [degF] Normal [facility] Comment on above: Order Comment: Speci men Type: ARTERIAL BLOOD SPECIMENOrdering Facility: [facility] Address: [address] [place] [address] Performed By: #### A LLBG ####[facility] LABCLIA [id number] [place] [address] [place] Calcium.ionized (Bld) [Mass/Vol] 1.10 mmol/L Normal 1.08-1.30 [facility] Comment on above: Order Comment: Speci men Type: ARTERIAL BLOOD SPECIMENOrdering Facility: [facility] Address: [address] [place] [address] Performed By: #### A LLBG ####[facility] LABIA [id number] [place] [address] [place] Calcium.ionized adjusted to pH 7.4 (BldA) [Moles/Vol] 1.09 mmol/L Normal 1.08-1.30 [facility] Comment on above: Order Comment: Speci men Type: ARTERIAL BLOOD SPECIMENOrdering Facility: [facility] Address: [address] [place] [address] Performed By: #### A LLBG ####[facility] LABIA [id number] [place] [address] [place] Carboxyhemoglobin (BldA) [Mass fraction] 1.0 % Normal 0.0-2.0 [facility] Comment on above: Order Comment: Speci men Type: ARTERIAL BLOOD SPECIMENOrdering Facility: [facility] Address: [address] [place] [address] Result Comment: Carb oxyhemoglobin Reference Range for Smokers: 2.0-8.0% Performed By: #### A LLBG ####[facility] LABCLIA [id number] [address] [address] [place] CO2 (Bld) [Partial pressure] 42 mm Hg Normal 36-46 [facility] Comment on above: Order Comment: Speci men Type: ARTERIAL BLOOD SPECIMENOrdering Facility: [facility] Address: [address] [place] [address] Performed By: #### A LLBG ####[facility] LABCLIA [id number] [place] [address] [place] CO2 adjusted to patient's actual temperature (Bld) [Partial pressure] 41 mmHg Normal 36-46 [facility] Comment on above: Order Comment: Speci men Type: ARTERIAL BLOOD SPECIMENOrdering Facility: [facility] Address: [address] [place] [address] Performed By: #### A LLBG ####[facility] LABCLIA [id number] [place] [address] [place] Glucose [Mass/Vol] 81 mg/dL Normal 60-105 [facility] Comment on above: Order Comment: Speci men Type: ARTERIAL BLOOD SPECIMENOrdering Facility: [facility] Address: [address] [place] [address] Performed By: #### A LLBG ####[facility] LABCLIA [id number] [place] [id number] [place] HCO3 (Bld) [Moles/Vol] 24 mmol/L Normal 22-26 [facility] Comment on above: Order Comment: Speci men Type: ARTERIAL BLOOD SPECIMENOrdering Facility: [facility] Address: [address] [place] [address] Performed By: #### A LLBG ####[facility] LABCLIA [id number] [place] [address] [place] Hematocrit (Bld) [Volume fraction] 32.8 % Low 39.0-51.0 [facility] Comment on above: Order Comment: Speci men Type: ARTERIAL BLOOD SPECIMENOrdering Facility: [facility] Address: [address] [place] [address] Performed By: #### A LLBG ####[facility] LABCLIA [id number] [place] [address] [place] Hemoglobin (Bld) [Mass/Vol] 10.6 g/dL Low 13.0-17.0 [facility] Comment on above: Order Comment: Speci men Type: ARTERIAL BLOOD SPECIMENOrdering Facility: [facility] Address: [address] [place] [address] Performed By: #### A LLBG ####[facility] LABIA [id number] [place] [address] [place] Lactate [Moles/Vol] 0.5 mmol/L Normal 0.5-2.2 [facility] Comment on above: Order Comment: Speci men Type: ARTERIAL BLOOD SPECIMENOrdering Facility: [facility] Address: [address] [place] [address] Performed By: #### A LLBG ####[facility] LABIA [id number] [place] [address] [place] 2 Liters/min Normal [facility] Comment on above: Order Comment: Speci men Type: ARTERIAL BLOOD SPECIMENOrdering Facility: [facility] Address: [address] [place] [address] Performed By: #### A LLBG ####[facility] LABIA [id number] [place] [address] [place] Methemoglobin (Bld) [Mass fraction] 0.9 % Normal 0.0-1.5 [facility] Comment on above: Order Comment: Speci men Type: ARTERIAL BLOOD SPECIMENOrdering Facility: [facility] Address: [address] [place] [address] Performed By: #### A LLBG ####[facility] LABCLIA [id number] [address] [place] [address] [place] O2 THERAPY [place] = Nasal Cannula Normal [facility] Comment on above: Order Comment: Speci men Type: ARTERIAL BLOOD SPECIMENOrdering Facility: [facility] Address: [address] [place] [id number] Performed By: #### A LLBG ####[facility] LABCLIA [id number] [address] [address] [place] Oxygen (Bld) [Partial pressure] 152 mm Hg High 85-95 [facility] Comment on above: Order Comment: Speci men Type: ARTERIAL BLOOD SPECIMENOrdering Facility: [facility] Address: [address] [place], [place] [id number] Performed By: #### A LLBG ####[facility] [facility] LABCLIA [id number] [address] [address] [place] Oxygen adjusted to patient's actual temperature (Bld) [Partial pressure] 149 mmHg High 85-95 [facility] Comment on above: Order Comment: Speci men Type: ARTERIAL BLOOD SPECIMENOrdering Facility: [facility] Address: [address] [id number] Performed By: #### A LLBG ####[facility] LABCLIA [id number] [address] [place] [address] [place] Oxyhemoglobin (BldA) [Mass fraction] 97 % Normal 95-98 [facility] Comment on above: Order Comment: Speci men Type: ARTERIAL BLOOD SPECIMENOrdering Facility: [facility] Address: [address] [place], [place] [address] Performed By: #### A LLBG ####[facility] LABCLIA [id number] [place] [address] [place] pH (Bld) 7.37 [pH] Normal 7.35-7.45 [facility] Comment on above: Order Comment: Speci men Type: ARTERIAL BLOOD SPECIMENOrdering Facility: [facility] Address: [address] [place] [address] Performed By: #### A LLBG ####[facility] LABCLIA [id number] [place] [address] [place] pH adjusted to patient's actual temperature (Bld) 7.38 Normal 7.35-7.45 [facility] Comment on above: Order Comment: Speci men Type: ARTERIAL BLOOD SPECIMENOrdering Facility: [facility] Address: [address] [place] [address] Performed By: #### A LLBG ####[facility] LABCLIA [id number] [place] [address] [place] Potassium [Moles/Vol] 5.2 mmol/L High 3.5-5.0 [facility] Comment on above: Order Comment: Speci men Type: ARTERIAL BLOOD SPECIMENOrdering Facility: [facility] Address: [address] [place] [address] Performed By: #### A LLBG ####[facility] LABCLIA [id number] [place] [address] [place] Sodium [Moles/Vol] 128 mmol/L Low 136-144 [facility] Comment on above: Order Comment: Speci men Type: ARTERIAL BLOOD SPECIMENOrdering Facility: [facility] Address: [address] [place], [place] [address] Performed By: #### A LLBG ####[facility] LABCLIA [id number] [place] [address] [place] Base deficit (BldA) [Moles/Vol] mmol/L Normal -2-0 [facility] Comment on above: Order Comment: Speci men Type: ARTERIAL BLOOD SPECIMENOrdering Facility: [facility] Address: [address] [address] Performed By: #### A LLBG ####[facility] [id number] [place] [address] [place] Body temperature 97.52 [degF] Normal [facility] Comment on above: Order Comment: Speci men Type: ARTERIAL BLOOD SPECIMENOrdering Facility: [facility] Address: [address] [place] [address] Performed By: #### A LLBG ####[facility] [id number] [place] [address] [place] Calcium.ionized (Bld) [Mass/Vol] 1.07 mmol/L Low 1.08-1.30 [facility] Comment on above: Order Comment: Speci men Type: ARTERIAL BLOOD SPECIMENOrdering Facility: [facility] Address: [address] [place] [address] Performed By: #### A LLBG ####[facility] [id number] [place] [address] [place] Calcium.ionized adjusted to pH 7.4 (BldA) [Moles/Vol] 1.06 mmol/L Low 1.08-1.30 [facility] Comment on above: Order Comment: Speci men Type: ARTERIAL BLOOD SPECIMENOrdering Facility: [facility] Address: [address] [place] [address] Performed By: #### A LLBG ####[facility] [id number] [place] [address] [place] Carboxyhemoglobin (BldA) [Mass fraction] 0.4 % Normal 0.0-2.0 [facility] Comment on above: Order Comment: Speci men Type: ARTERIAL BLOOD SPECIMENOrdering Facility: [facility] Address: [address] [place] [address] Result Comment: Carb oxyhemoglobin Reference Range for Smokers: 2.0-8.0% Performed By: #### A LLBG ####[facility] LABCLIA [id number] [facility] [address], [place] [address] [place] CO2 (Bld) [Partial pressure] 44 mm Hg Normal 36-46 [facility] Comment on above: Order Comment: Speci men Type: ARTERIAL BLOOD SPECIMENOrdering Facility: [facility] Address: [address] [place] [address] Performed By: #### A LLBG ####[facility] LABCLIA [id number] [facility] [address], [place] [address] [place] CO2 adjusted to patient's actual temperature (Bld) [Partial pressure] 42 mmHg Normal 36-46 [facility] Comment on above: Order Comment: Speci men Type: ARTERIAL BLOOD SPECIMENOrdering Facility: [facility] Address: [address] [place] [address] Performed By: #### A LLBG ####[facility] LABCLIA [id number] [place] [address] [place] Glucose [Mass/Vol] 142 mg/dL High 60-105 [facility] Comment on above: Order Comment: Speci men Type: ARTERIAL BLOOD SPECIMENOrdering Facility: [facility] Address: [address] [place] [address] Performed By: #### A LLBG ####[facility] LABCLIA [id number] [place] [id number] [place] HCO3 (Bld) [Moles/Vol] 25 mmol/L Normal 22-26 [facility] Comment on above: Order Comment: Speci men Type: ARTERIAL BLOOD SPECIMENOrdering Facility: [facility] Address: [address] [place] [address] Performed By: #### A LLBG ####[facility] LABCLIA [id number] [place] [id number] [place] Hematocrit (Bld) [Volume fraction] 33.9 % Low 39.0-51.0 [facility] Comment on above: Order Comment: Speci men Type: ARTERIAL BLOOD SPECIMENOrdering Facility: [facility] Address: [address] [place] [address] Performed By: #### A LLBG ####[facility] LABIA [id number] [address] [address] [place] Hemoglobin (Bld) [Mass/Vol] 11.0 g/dL Low 13.0-17.0 [facility] Comment on above: Order Comment: Speci men Type: ARTERIAL BLOOD SPECIMENOrdering Facility: [facility] Address: [address] [place] [address] Performed By: #### A LLBG ####[facility] LABIA [id number] [place] [address] [place] Lactate [Moles/Vol] 0.9 mmol/L Normal 0.5-2.2 [facility] Comment on above: Order Comment: Speci men Type: ARTERIAL BLOOD SPECIMENOrdering Facility: [facility] Address: [address] [place] [address] Performed By: #### A LLBG ####[facility] LABIA [id number] [place] [address] [place] LITERS 1 Liters/min Normal [facility] Comment on above: Order Comment: Speci men Type: ARTERIAL BLOOD SPECIMENOrdering Facility: [facility] Address: [address] [place] [address] Performed By: #### A LLBG ####[facility] LABIA [id number] [place] [id number] [place] Methemoglobin (Bld) [Mass fraction] 0.5 % Normal 0.0-1.5 [facility] Comment on above: Order Comment: Speci men Type: ARTERIAL BLOOD SPECIMENOrdering Facility: [facility] Address: [address] [place] [address] Performed By: #### A LLBG ####[facility] LABCLIA [id number] [address] [place] [address] [place] O2 THERAPY NC = Nasal Cannula Normal [facility] Comment on above: Order Comment: Speci men Type: ARTERIAL BLOOD SPECIMENOrdering Facility: [facility] Address: [address] [place], [place] [address] Performed By: #### A LLBG ####[facility] LABCLIA [id number] [address] [place] [address] [place] Oxygen (Bld) [Partial pressure] 131 mm Hg High 85-95 [facility] Comment on above: Order Comment: Speci men Type: ARTERIAL BLOOD SPECIMENOrdering Facility: [facility] Address: [address] [place] [address] Performed By: #### A LLBG ####[facility] LABCLIA [id number] [address] [address] [place] Oxygen adjusted to patient's actual temperature (Bld) [Partial pressure] 127 mmHg High 85-95 [facility] Comment on above: Order Comment: Speci men Type: ARTERIAL BLOOD SPECIMENOrdering Facility: [facility] Address: [address] [place], [place] [address] Performed By: #### A LLBG ####[facility] LABCLIA [id number] [address] [address] [place] Oxyhemoglobin (BldA) [Mass fraction] 96 % Normal 95-98 [facility] Comment on above: Order Comment: Speci men Type: ARTERIAL BLOOD SPECIMENOrdering Facility: [facility] Address: [address] [place], [place] [address] Performed By: #### A LLBG ####[facility] LABCLIA [id number] [address] [address] [place] pH (Bld) 7.37 [pH] Normal 7.35-7.45 [facility] Comment on above: Order Comment: Speci men Type: ARTERIAL BLOOD SPECIMENOrdering Facility: [facility] Address: [address] [place] [address] Performed By: #### A LLBG ####[facility] LABIA [id number] [place] [address] [place] pH adjusted to patient's actual temperature (Bld) 7.38 Normal 7.35-7.45 [facility] Comment on above: Order Comment: Speci men Type: ARTERIAL BLOOD SPECIMENOrdering Facility: [facility] Address: [address] [place] [address] Performed By: #### A LLBG ####[facility] LABIA [id number] [place] [address] [place] Potassium [Moles/Vol] 5.4 mmol/L High 3.5-5.0 [facility] Comment on above: Order Comment: Speci men Type: ARTERIAL BLOOD SPECIMENOrdering Facility: [facility] Address: [address] [place] [address] Performed By: #### A LLBG ####[facility] [id number] [place] [address] [place] ARTERIAL BLOOD GASES WITH IO NIZED MAGNESIUMon 11-26-2024 Base excess Calc (Bld) [Moles/Vol] 6 mmol/L High 0-2 [facility] Comment on above: Order Comment: Speci men Type: ARTERIAL BLOOD SPECIMENOrdering Facility: [facility] Address: [address] [place] [address] Performed By: #### A LLMG ####[facility] [id number] [place] [address] [place] Calcium.ionized (Bld) [Mass/Vol] 1.09 mmol/L Normal 1.08-1.30 [facility] Comment on above: Order Comment: Speci men Type: ARTERIAL BLOOD SPECIMENOrdering Facility: [facility] Address: [address] [place] [address] Performed By: #### A LLMG ####[facility] LABCLIA [id number] [place] [address] [place] Calcium.ionized adjusted to pH 7.4 (BldA) [Moles/Vol] 1.12 mmol/L Normal 1.08-1.30 [facility] Comment on above: Order Comment: Speci men Type: ARTERIAL BLOOD SPECIMENOrdering Facility: [facility] Address: [address] [place] [address] Performed By: #### A LLMG ####[facility] LABIA [id number] [place] [address] [place] Carboxyhemoglobin (BldA) [Mass fraction] 0.0 % Normal 0.0-2.0 [facility] Comment on above: Order Comment: Speci men Type: ARTERIAL BLOOD SPECIMENOrdering Facility: [facility] Address: [address] [place] [address] Result Comment: Carb oxyhemoglobin Reference Range for Smokers: 2.0-8.0% Performed By: #### A LLMG ####[facility] LABCLIA [id number] [place] [address] [place] CO2 (Bld) [Partial pressure] 43 mm Hg Normal 36-46 [facility] Comment on above: Order Comment: Speci men Type: ARTERIAL BLOOD SPECIMENOrdering Facility: [facility] Address: [address] [place] [address] Performed By: #### A LLMG ####[facility] LABCLIA [id number] [place] [address] [place] CO2 adjusted to patient's actual temperature (Bld) [Partial pressure] 43 mmHg Normal 36-46 [facility] Comment on above: Order Comment: Speci men Type: ARTERIAL BLOOD SPECIMENOrdering Facility: [facility] Address: [address] [place] [address] Performed By: #### A LLMG ####[facility] LABCLIA [id number] [place] [id number] [place] Glucose [Mass/Vol] 83 mg/dL Normal 60-105 [facility] Comment on above: Order Comment: Speci men Type: ARTERIAL BLOOD SPECIMENOrdering Facility: [facility] Address: [address] [place] [address] Performed By: #### A LLMG ####[facility] LABCLIA [id number] [place] [address] [place] HCO3 (Bld) [Moles/Vol] 30 mmol/L High 22-26 [facility] Comment on above: Order Comment: Speci men Type: ARTERIAL BLOOD SPECIMENOrdering Facility: [facility] Address: [address] [place] [address] Performed By: #### A LLMG ####[facility] LABCLIA [id number] [place] [address] [place] Hematocrit (Bld) [Volume fraction] 32.9 % Low 39.0-51.0 [facility] Comment on above: Order Comment: Speci men Type: ARTERIAL BLOOD SPECIMENOrdering Facility: [facility] Address: [address] [place] [address] Performed By: #### A LLMG ####[facility] LABCLIA [id number] [place] [address] [place] Hemoglobin (Bld) [Mass/Vol] 10.7 g/dL Low 13.0-17.0 [facility] Comment on above: Order Comment: Speci men Type: ARTERIAL BLOOD SPECIMENOrdering Facility: [facility] Address: [address] [place] [address] Performed By: #### A LLMG ####[facility] LABCLIA [id number] [place] [id number] [place] Lactate [Moles/Vol] 0.6 mmol/L Normal 0.5-2.2 [facility] Comment on above: Order Comment: Speci men Type: ARTERIAL BLOOD SPECIMENOrdering Facility: [facility] Address: [address] [place] [address] Performed By: #### A LLMG ####[facility] LABCLIA [id number] [address] [place] [address] [place] Magnesium [Moles/Vol] 0.59 mmol/L Normal 0.45-0.60 [facility] Comment on above: Order Comment: Speci men Type: ARTERIAL BLOOD SPECIMENOrdering Facility: [facility] Address: [address] [place], [place] [address] Performed By: #### A LLMG ####[facility] LABCLIA [id number] [place] [id number] [place] Methemoglobin (Bld) [Mass fraction] 0.5 % Normal 0.0-1.5 [facility] Comment on above: Order Comment: Speci men Type: ARTERIAL BLOOD SPECIMENOrdering Facility: [facility] Address: [address] [place], [place] [address] Performed By: #### A LLMG ####[facility] LABCLIA [id number] [address] [address] [place] Oxygen (Bld) [Partial pressure] 132 mm Hg High 85-95 [facility] Comment on above: Order Comment: Speci men Type: ARTERIAL BLOOD SPECIMENOrdering Facility: [facility] Address: [address] [place], [place] [address] Performed By: #### A LLMG ####[facility] LABCLIA [id number] [address] [place] [address] [place] Oxygen adjusted to patient's actual temperature (Bld) [Partial pressure] 132 mmHg High 85-95 [facility] Comment on above: Order Comment: Speci men Type: ARTERIAL BLOOD SPECIMENOrdering Facility: [facility] Address: [address] [place] [address] Performed By: #### A LLMG ####[facility] LABCLIA [id number] [place] [id number] [place] Oxyhemoglobin (BldA) [Mass fraction] 97 % Normal 95-98 [facility] Comment on above: Order Comment: Speci men Type: ARTERIAL BLOOD SPECIMENOrdering Facility: [facility] Address: [address] [place] [address] Performed By: #### A LLMG ####[facility] LABCLIA [id number] [place] [address] [place] pH (Bld) 7.46 [pH] High 7.35-7.45 [facility] Comment on above: Order Comment: Speci men Type: ARTERIAL BLOOD SPECIMENOrdering Facility: [facility] Address: [address] [place] [address] Performed By: #### A LLMG ####[facility] LABCLIA [id number] [place] [address] [place] pH adjusted to patient's actual temperature (Bld) 7.46 High 7.35-7.45 [facility] Comment on above: Order Comment: Speci men Type: ARTERIAL BLOOD SPECIMENOrdering Facility: [facility] Address: [address] [place] [address] Performed By: #### A LLMG ####[facility] LABCLIA [id number] [place] [address] [place] Potassium [Moles/Vol] 3.7 mmol/L Normal 3.5-5.0 [facility] Comment on above: Order Comment: Speci men Type: ARTERIAL BLOOD SPECIMENOrdering Facility: [facility] Address: [address] [place] [address] Performed By: #### A LLMG ####[facility] LABCLIA [id number] [place] [id number] [place] Sodium [Moles/Vol] 133 mmol/L Low 136-144 [facility] Comment on above: Order Comment: Speci men Type: ARTERIAL BLOOD SPECIMENOrdering Facility: [facility] Address: [address] [place] [address] Performed By: #### A LLMG ####[facility] LABCLIA [id number] [place] [id number] [place] BRIEF OP NOTon 11-26-2024 BRIEF OP NOT Normal [facility] BUN p dialysis SerPl-mCncon 11-26-2024 Urea nitrogen post dialysis [Mass/Vol] 30 mg/dL High 02-13 [facility] Comment on above: Order Comment: Speci men Type: BLOOD SPECIMENOrdering Facility: [facility] Address: [address] [place] [address] Performed By: #### 1 1064-3 ####[facility] LABCLIA [id number] [address] [place] BUN pre dial SerPl-mCncon Urea nitrogen pre dialysis [Mass/Vol] 96 mg/dL High 02-13 [facility] Comment on above: Order Comment: Speci men Type: BLOOD SPECIMENOrdering Facility: [facility] Address: [address] [place] [address] Performed By: #### 1 1065-0 ####[facility] LABCLIA [id number] [address] [place] Basic Metabolic Profile (BMP )on 11-26-2024 BUN Normal 4-19 [facility] Comment on above: Result Comment: Canc elled via OM: MD Ordered Performed By: #### L 500.2500, L100.0100 ####[facility] [address] [place], [address] BUN/CRE Normal 10-20 [facility] Comment on above: Result Comment: Canc elled via OM: MD Ordered Performed By: #### L 500.2500, L100.0100 ####[facility] [address] [place], [address] Calcium Normal 7.6-11.0 [facility] Comment on above: Result Comment: Canc elled via OM: MD Ordered Performed By: #### L 500.2500, L100.0100 ####[facility] [address] [place], [address] CL Normal 98-108 [facility] Comment on above: Result Comment: Canc elled via OM: MD Ordered Performed By: #### L 500.2500, L100.0100 ####[facility] [address] [place], [address] CO2 Normal 21.0-32.0 [facility] Comment on above: Result Comment: Canc elled via OM: MD Ordered Performed By: #### L 500.2500, L100.0100 ####[facility] [address] [place], [address] CREAT,SERUM Normal 0.70-1.20 [facility] Comment on above: Result Comment: Canc elled via OM: MD Ordered Performed By: #### L 500.2500, L100.0100 ####[facility] [address] [place], [address] eGFR Normal >60 [facility] Comment on above: Result Comment: Canc elled via OM: MD Ordered Performed By: #### L 500.2500, L100.0100 ####[facility] [address] [place], [address] GAP Normal 5-15 [facility] Comment on above: Result Comment: Canc elled via OM: MD Ordered Performed By: #### L 500.2500, L100.0100 ####[facility] [address] [place], [address] GLU Normal 70-99 [facility] Comment on above: Result Comment: Canc elled via OM: MD Ordered Performed By: #### L 500.2500, L100.0100 ####[facility] [address] [place], [address] Potassium Normal 3.3-5.1 [facility] Comment on above: Result Comment: Canc elled via OM: MD Ordered Performed By: #### L 500.2500, L100.0100 ####[facility] [address] [place], [address] Basic Metabolic Profile (BMP) Normal 133-145 [facility] Comment on above: Result Comment: Canc elled via OM: MD Ordered Performed By: #### L 500.2500, L100.0100 ####[facility] [address] [place], [address] CASE MGT INIT ASSESon 07-- 2024 CASE MGT INIT ASSES Normal [facility] CBC W/Diff, Automatedon 07-0 Absolute Neut Normal 2.0-7.7 [facility] Comment on above: Result Comment: Canc elled via OM: MD Ordered Performed By: #### L 500.2500, L100.0100 ####[facility] [address] [place], [address] HCT Normal 40-54 [facility] Comment on above: Result Comment: Canc elled via OM: MD Ordered Performed By: #### L 500.2500, L100.0100 ####[facility] [address] [place], [address] HGB Normal 13.0-16.5 [facility] Comment on above: Result Comment: Canc elled via OM: MD Ordered Performed By: #### L 500.2500, L100.0100 ####[facility] [address] [place], [address] MCH Normal 27.0-32.0 [facility] Comment on above: Result Comment: Canc elled via OM: MD Ordered Performed By: #### L 500.2500, L100.0100 ####[facility] [address] [place], [address] MCHC Normal 32-36 [facility] Comment on above: Result Comment: Canc elled via OM: MD Ordered Performed By: #### L 500.2500, L100.0100 ####[facility] [address] [place], [address] MCV Normal 80-94 [facility] Comment on above: Result Comment: Canc elled via OM: MD Ordered Performed By: #### L 500.2500, L100.0100 ####[facility] [address] [place], [address] NEUT% Normal 47-70 [facility] Comment on above: Result Comment: Canc elled via OM: MD Ordered Performed By: #### L 500.2500, L100.0100 ####[facility] [address] [place], [address] PLT Normal 150-450 [facility] Comment on above: Result Comment: Canc elled via OM: MD Ordered Performed By: #### L 500.2500, L100.0100 ####[facility] [address] [place], [address] RBC Normal 4.6-6.2 [facility] Comment on above: Result Comment: Canc elled via OM: MD Ordered Performed By: #### L 500.2500, L100.0100 ####[facility] [address] [place], [address] RDW CV Normal 11.6-14.6 [facility] Comment on above: Result Comment: Canc elled via OM: MD Ordered Performed By: #### L 500.2500, L100.0100 ####[facility] [address] [place], [address] RDW SD Normal 35.1-43.9 [facility] Comment on above: Result Comment: Canc elled via OM: MD Ordered Performed By: #### L 500.2500, L100.0100 ####[facility] [address] [place], [address] WBC Normal 4.4-11.0 [facility] Comment on above: Result Comment: Canc elled via OM: MD Ordered Performed By: #### L 500.2500, L100.0100 ####[facility] [address] [place], [address] CBC panel Auto (Bld)on 11-26 Erythrocyte distribution width (RBC) [Ratio] 15.9 % High 11.5-15.0 [facility] Comment on above: Order Comment: Speci men Type: BLOOD SPECIMENOrdering Facility: [facility] Address: [address] [place] [address] Performed By: #### 5 8410-2 ####[facility] LABCLIA [id number] [place] [address] [place] Hematocrit (Bld) [Volume fraction] 33.8 % Low 39.0-51.0 [facility] Comment on above: Order Comment: Speci men Type: BLOOD SPECIMENOrdering Facility: [facility] Address: [address] [place] [address] Performed By: #### 5 8410-2 ####[facility] LABCLIA [id number] [place] [address] [place] Hemoglobin (Bld) [Mass/Vol] 10.7 g/dL Low 13.0-17.0 [facility] Comment on above: Order Comment: Speci men Type: BLOOD SPECIMENOrdering Facility: [facility] Address: [address] [place] [address] Performed By: #### 5 8410-2 ####[facility] LABCLIA [id number] [address] [place] [address] [place] MCH (RBC) [Entitic mass] 28.2 pg Normal 26.0-34.0 [facility] Comment on above: Order Comment: Speci men Type: BLOOD SPECIMENOrdering Facility: [facility] Address: [address] [place] [address] Performed By: #### 5 8410-2 ####[facility] LABCLIA [id number] [place] [address] [place] MCHC (RBC) [Mass/Vol] 31.7 g/dL Normal 30.5-36.0 [facility] Comment on above: Order Comment: Speci men Type: BLOOD SPECIMENOrdering Facility: [facility] Address: [address] [place] [address] Performed By: #### 5 8410-2 ####[facility] LABCLIA [id number] [address] [place] MCV (RBC) [Entitic vol] 88.9 fL Normal 80.0-100.0 [facility] Comment on above: Order Comment: Speci men Type: BLOOD SPECIMENOrdering Facility: [facility] Address: [address] [place] [address] Performed By: #### 5 8410-2 ####[facility] LABIA [id number] [place] [address] [place] Nucleated RBC (Bld) [#/Vol] 10*3/uL Normal <0.01 [facility] Comment on above: Order Comment: Speci men Type: BLOOD SPECIMENOrdering Facility: [facility] Address: [address] [place] [address] Performed By: #### 5 8410-2 ####[facility] LABCLIA [id number] [place] [address] [place] Platelet mean volume (Bld) [Entitic vol] 12.2 fL Normal 9.0-12.7 [facility] Comment on above: Order Comment: Speci men Type: BLOOD SPECIMENOrdering Facility: [facility] Address: [address] [place] [address] Performed By: #### 5 8410-2 ####[facility] LABIA [id number] [place] [address] [place] Platelets (Bld) [#/Vol] 133 10*3/uL Low 150-400 [facility] Comment on above: Order Comment: Speci men Type: BLOOD SPECIMENOrdering Facility: [facility] Address: [address] [place] [address] Performed By: #### 5 8410-2 ####[facility] LABIA [id number] [place] [address] [place] RBC (Bld) [#/Vol] 3.80 10*6/uL Low 4.20-6.00 [facility] Comment on above: Order Comment: Speci men Type: BLOOD SPECIMENOrdering Facility: [facility] Address: [address] [place] [address] Performed By: #### 5 8410-2 ####[facility] LABIA [id number] [place] [address] [place] WBC (Bld) [#/Vol] 8.99 10*3/uL Normal 3.70-11.00 [facility] Comment on above: Order Comment: Speci men Type: BLOOD SPECIMENOrdering Facility: [facility] Address: [address] [place] [address] Performed By: #### 5 8410-2 ####[facility] LABIA [id number] [place] [address] [place] CONSULT PROGon 11-26-2024 CONSULT PROG Normal [facility] Comp Metab 2000 Pnl SerPlon 11-26-2024 Sodium [Moles/Vol] 129 mmol/L Low 136-144 [facility] Comment on above: Order Comment: Speci men Type: BLOOD SPECIMENOrdering Facility: [facility] Address: [address] [address] Performed By: #### 2 4323-8, 37524-4 ####[facility] LABCLIA [id number] [address], [address] STATES OF [facility] Order Comment: Speci men Type: ARTERIAL BLOOD SPECIMENOrdering Facility: [facility] Address: [address] [place] [address] Performed By: #### A LLBG ####[facility] LABCLIA [id number] [address], [address] OF [facility] Comprehensive metabolic 2000 panelon 11-26-2024 Albumin [Mass/Vol] 3.4 g/dL Low 3.9-4.9 [facility] Comment on above: Order Comment: Speci men Type: BLOOD SPECIMENOrdering Facility: [facility] Address: [address] [place] [address] Performed By: #### 2 4323-8 ####[facility] LABCLIA [id number] [place] [address] [place] ALP [Catalytic activity/Vol] 64 U/L Normal 38-113 [facility] Comment on above: Order Comment: Speci men Type: BLOOD SPECIMENOrdering Facility: [facility] Address: [address] [place] [address] Performed By: #### 2 4323-8 ####[facility] LABCLIA [id number] [address] [place] ALT [Catalytic activity/Vol] 34 U/L Normal 10-54 [facility] Comment on above: Order Comment: Speci men Type: BLOOD SPECIMENOrdering Facility: [facility] Address: [address] [place] [address] Performed By: #### 2 4323-8 ####[facility] LABCLIA [id number] [address], [facility]95 [place] Anion gap [Moles/Vol] 19 mmol/L High 8-15 [facility] Comment on above: Order Comment: Speci men Type: BLOOD SPECIMENOrdering Facility: [facility] Address: [address] [place] [address] Performed By: #### 2 4323-8 ####[facility] LABCLIA [id number] [address] [address] [place] AST [Catalytic activity/Vol] 21 U/L Normal 14-40 [facility] Comment on above: Order Comment: Speci men Type: BLOOD SPECIMENOrdering Facility: [facility] Address: [address] [place] [address] Performed By: #### 2 4323-8 ####[facility] LABCLIA [id number] [place] [address] [place] Bilirubin [Mass/Vol] 0.3 mg/dL Normal 0.2-1.3 [facility] Comment on above: Order Comment: Speci men Type: BLOOD SPECIMENOrdering Facility: [facility] Address: [address] [place] [address] Performed By: #### 2 4323-8 ####[facility] LABIA [id number] [place] [address] [place] Calcium [Mass/Vol] 8.7 mg/dL Normal 8.5-10.2 [facility] Comment on above: Order Comment: Speci men Type: BLOOD SPECIMENOrdering Facility: [facility] Address: [address] [place], [place] [address] Performed By: #### 2 4323-8 ####[facility] LABCLIA [id number] [place] [id number] [place] Chloride [Moles/Vol] 89 mmol/L Low 98-107 [facility] Comment on above: Order Comment: Speci men Type: BLOOD SPECIMENOrdering Facility: [facility] Address: [address] [place] [address] Performed By: #### 2 4323-8 ####[facility] LABCLIA [id number] [address] [address] [place] CO2 [Moles/Vol] 22 mmol/L Normal 22-30 [facility] Comment on above: Order Comment: Speci men Type: BLOOD SPECIMENOrdering Facility: [facility] Address: [address] [place] [address] Performed By: #### 2 4323-8 ####[facility] LABCLIA [id number] [place] [id number] [place] Creatinine [Mass/Vol] 7.11 mg/dL High 0.73-1.22 [facility] Comment on above: Order Comment: Speci men Type: BLOOD SPECIMENOrdering Facility: [facility] Address: [address] [place] [address] Performed By: #### 2 4323-8 ####[facility] LABIA [id number] [place] [address] [place] Creatinine and Glomerular filtration rate.predicted panel (S/P/Bld) 7 mL/min/1.73m??? Low >=60 [facility] Comment on above: Order Comment: Speci men Type: BLOOD SPECIMENOrdering Facility: [facility] Address: [address] [place] [address] Result Comment: Tessa mated Glomerular Filtration Rate [...] actual GFR. Performed By: #### 2 4323-8 ####[facility] LABCLIA [id number] [facility] [address] [address] [place] Glucose [Mass/Vol] 55 mg/dL Low 74-99 [facility] Comment on above: Order Comment: Speci men Type: BLOOD SPECIMENOrdering Facility: [facility] Address: [address] [place] [address] Result Comment: The [place] [employer] (ADA) provides guidance for [...] Standards of Medical Care in Diabetes 2016, [place] [employer]. Diabetes Care. 2016.39(Suppl 1). Performed By: #### 2 4323-8 ####[facility] LABCLIA [id number] [place] [address] [place] Potassium [Moles/Vol] 5.3 mmol/L High 3.7-5.1 [facility] Comment on above: Order Comment: Speci men Type: BLOOD SPECIMENOrdering Facility: [facility] Address: [address] [place], [place] [address] Performed By: #### 2 4323-8 ####[facility] LABCLIA [id number] [address] [address] [place] Protein [Mass/Vol] 6.3 g/dL Normal 6.3-8.0 [facility] Comment on above: Order Comment: Speci men Type: BLOOD SPECIMENOrdering Facility: [facility] Address: [address] [place] [address] Performed By: #### 2 4323-8 ####[facility] LABCLIA [id number] [address] [address] [place] Sodium [Moles/Vol] 130 mmol/L Low 136-144 [facility] Comment on above: Order Comment: Speci men Type: BLOOD SPECIMENOrdering Facility: [facility] Address: [address] [place], [place] [address] Performed By: #### 2 4323-8 ####[facility] LABCLIA [id number] [place] [id number] [place] Urea nitrogen [Mass/Vol] 95 mg/dL High 9-24 [facility] Comment on above: Order Comment: Speci men Type: BLOOD SPECIMENOrdering Facility: [facility] Address: [address] [place] [address] Performed By: #### 2 4323-8 ####[facility] LABCLIA [id number] [place] [id number] [place] Albumin [Mass/Vol] 3.4 g/dL Low 3.9-4.9 [facility] Comment on above: Order Comment: Speci men Type: BLOOD SPECIMENOrdering Facility: [facility] Address: [address] [place] [address] Performed By: #### 2 4323-8, ####[facility] LABCLIA [id number] [place] [id number] [place] ALP [Catalytic activity/Vol] 63 U/L Normal 38-113 [facility] Comment on above: Order Comment: Speci men Type: BLOOD SPECIMENOrdering Facility: [facility] Address: [address] [place], [place] [address] Performed By: #### 2 4323-8, ####[facility] LABCLIA [id number] [place] [id number] [place] ALT [Catalytic activity/Vol] 36 U/L Normal 10-54 [facility] Comment on above: Order Comment: Speci men Type: BLOOD SPECIMENOrdering Facility: [facility] Address: [address] [place], [place] [address] Performed By: #### 2 4323-8, ####[facility] LABCLIA [id number] [place] [id number] [place] Anion gap [Moles/Vol] 19 mmol/L High 8-15 [facility] Comment on above: Order Comment: Speci men Type: BLOOD SPECIMENOrdering Facility: [facility] Address: [address] [place] [address] Performed By: #### 2 4323-8, ####[facility] LABCLIA [id number] [place] [address] [place] AST [Catalytic activity/Vol] 20 U/L Normal 14-40 [facility] Comment on above: Order Comment: Speci men Type: BLOOD SPECIMENOrdering Facility: [facility] Address: [address] [place] [address] Performed By: #### 2 4323-8, ####[facility] LABCLIA [id number] [place] [address] [place] Bilirubin [Mass/Vol] 0.2 mg/dL Normal 0.2-1.3 [facility] Comment on above: Order Comment: Speci men Type: BLOOD SPECIMENOrdering Facility: [facility] Address: [address] [place] [address] Performed By: #### 2 4323-8, ####[facility] LABCLIA [id number] [place] [id number] [place] Calcium [Mass/Vol] 8.9 mg/dL Normal 8.5-10.2 [facility] Comment on above: Order Comment: Speci men Type: BLOOD SPECIMENOrdering Facility: [facility] Address: [address] [place] [address] Performed By: #### 2 4323-8, ####[facility] LABCLIA [id number] [place] [id number] [place] Chloride [Moles/Vol] 88 mmol/L Low 98-107 [facility] Comment on above: Order Comment: Speci men Type: BLOOD SPECIMENOrdering Facility: [facility] Address: [address] [place] [address] Performed By: #### 2 4323-8, ####[facility] LABCLIA [id number] [address] [address] [place] CO2 [Moles/Vol] 22 mmol/L Normal 22-30 [facility] Comment on above: Order Comment: Speci men Type: BLOOD SPECIMENOrdering Facility: [facility] Address: [address] [place] [address] Performed By: #### 2 4323-8, ####[facility] LABIA [id number] [place] [address] [place] Creatinine [Mass/Vol] 7.11 mg/dL High 0.73-1.22 [facility] Comment on above: Order Comment: Speci men Type: BLOOD SPECIMENOrdering Facility: [facility] Address: [address] [place] [address] Performed By: #### 2 4323-8, ####[facility] LABIA [id number] [address] [place] Creatinine and Glomerular filtration rate.predicted panel (S/P/Bld) 7 mL/min/1.73m??? Low >=60 [facility] Comment on above: Order Comment: Speci men Type: BLOOD SPECIMENOrdering Facility: [facility] Address: [address] [place] [address] Result Comment: Tessa mated Glomerular Filtration Rate [...] actual GFR. Performed By: #### 2 4323-8, ####[facility] LABCLIA [id number] [address] [address] [place] Glucose [Mass/Vol] 133 mg/dL High 74-99 [facility] Comment on above: Order Comment: Speci men Type: BLOOD SPECIMENOrdering Facility: [facility] Address: [address] [place] [address] Result Comment: The [place] [employer] (ADA) provides guidance for [...] Standards of Medical Care in Diabetes 2016, [place] [employer]. Diabetes Care. 2016.39(Suppl 1). Performed By: #### 2 4323-8, ####[facility] LABIA [id number] [address] [address] [place] Potassium [Moles/Vol] 5.6 mmol/L High 3.7-5.1 [facility] Comment on above: Order Comment: Speci men Type: BLOOD SPECIMENOrdering Facility: [facility] Address: [address] [place] [address] Performed By: #### 2 4328, ####[facility] LABIA [id number] [address] [address] [place] Protein [Mass/Vol] 6.3 g/dL Normal 6.3-8.0 [facility] Comment on above: Order Comment: Speci men Type: BLOOD SPECIMENOrdering Facility: [facility] Address: [address] [place] [address] Performed By: #### 2 4322-12, ####[facility] LABCLIA [id number] [address] [address] [place] Urea nitrogen [Mass/Vol] 94 mg/dL High 9-24 [facility] Comment on above: Order Comment: Speci men Type: BLOOD SPECIMENOrdering Facility: [facility] Address: [address] [place], [place] [address] Performed By: #### 2 4323-8, ####[facility] LABIA [id number] [address] [address] [place] Magnesium SerPl-mCncon 11-26 Magnesium [Mass/Vol] 2.6 mg/dL High 1.7-2.3 [facility] Comment on above: Order Comment: Speci men Type: BLOOD SPECIMENOrdering Facility: [facility] Address: [address] [place] [address] Performed By: #### 2 4328, ####[facility] LABIA [id number] [place] [id number] [place] THERAPY NTon 11-26-2024 THERAPY NT Normal [facility] Urea nitrogen post dialysis [Mass/Vol]on 11-26-2024 UREA REDUCTION RATIO WITH BUNPR 69 % Normal [facility] Comment on above: Order Comment: Speci men Type: BLOOD SPECIMENOrdering Facility: [facility] Address: [address] [place], [place] [address] Performed By: #### 1 1064-3 ####[facility] LABIA [id number] [address] [address] [place] XR CHEST 1V FRONTAL PORTon 0 11-26-2024 XR CHEST 1V FRONTAL PORT Normal [facility] ALLIED HEALTHon 11-25-2024 ALLIED HEALTH HNO ID: [id number] Author: ISRAEL MOODY Chaplain Service: Process Group Author Type: Field Examiner Type: Allied Health Filed: 11/25/2024 16:42 Note Text: The patient was anointed. Normal [facility] ARTERIAL BLOOD GASESon 11-25 Base excess Calc (Bld) [Moles/Vol] 1 mmol/L Normal 0-2 [facility] Comment on above: Order Comment: Speci men Type: ARTERIAL BLOOD SPECIMENOrdering Facility: [facility] Address: [address] [place] [address] Performed By: #### A LLBG ####[facility] LABCLIA [id number] [place] [address] [place] Body temperature 97.7 [degF] Normal [facility] Comment on above: Order Comment: Speci men Type: ARTERIAL BLOOD SPECIMENOrdering Facility: [facility] Address: [address] [place] [address] Performed By: #### A LLBG ####[facility] LABIA [id number] [place] [address] [place] Calcium.ionized (Bld) [Mass/Vol] 1.09 mmol/L Normal 1.08-1.30 [facility] Comment on above: Order Comment: Speci men Type: ARTERIAL BLOOD SPECIMENOrdering Facility: [facility] Address: [address] [place] [address] Performed By: #### A LLBG ####[facility] LABIA [id number] [place] [address] [place] Calcium.ionized adjusted to pH 7.4 (BldA) [Moles/Vol] 1.08 mmol/L Normal 1.08-1.30 [facility] Comment on above: Order Comment: Speci men Type: ARTERIAL BLOOD SPECIMENOrdering Facility: [facility] Address: [address] [place] [address] Performed By: #### A LLBG ####[facility] LABIA [id number] [place] [address] [place] Carboxyhemoglobin (BldA) [Mass fraction] 0.3 % Normal 0.0-2.0 [facility] Comment on above: Order Comment: Speci men Type: ARTERIAL BLOOD SPECIMENOrdering Facility: [facility] Address: [address] [place] [address] Result Comment: Carb oxyhemoglobin Reference Range for Smokers: 2.0-8.0% Performed By: #### A LLBG ####[facility] LABCLIA [id number] [place] [address] [place] CO2 (Bld) [Partial pressure] 43 mm Hg Normal 36-46 [facility] Comment on above: Order Comment: Speci men Type: ARTERIAL BLOOD SPECIMENOrdering Facility: [facility] Address: [address] [place] [address] Performed By: #### A LLBG ####[facility] LABCLIA [id number] [place] [address] [place] CO2 adjusted to patient's actual temperature (Bld) [Partial pressure] 42 mmHg Normal 36-46 [facility] Comment on above: Order Comment: Speci men Type: ARTERIAL BLOOD SPECIMENOrdering Facility: [facility] Address: [address] [place] [address] Performed By: #### A LLBG ####[facility] LABCLIA [id number] [place] [address] [place] Glucose [Mass/Vol] 92 mg/dL Normal 60-105 [facility] Comment on above: Order Comment: Speci men Type: ARTERIAL BLOOD SPECIMENOrdering Facility: [facility] Address: [address] [place] [address] Performed By: #### A LLBG ####[facility] LABCLIA [id number] [place] [address] [place] HCO3 (Bld) [Moles/Vol] 25 mmol/L Normal 22-26 [facility] Comment on above: Order Comment: Speci men Type: ARTERIAL BLOOD SPECIMENOrdering Facility: [facility] Address: [address] [place] [address] Performed By: #### A LLBG ####[facility] LABCLIA [id number] [place] [address] [place] Hematocrit (Bld) [Volume fraction] 32.9 % Low 39.0-51.0 [facility] Comment on above: Order Comment: Speci men Type: ARTERIAL BLOOD SPECIMENOrdering Facility: [facility] Address: [address] [place] [address] Performed By: #### A LLBG ####[facility] LABCLIA [id number] [place] [address] [place] Hemoglobin (Bld) [Mass/Vol] 10.6 g/dL Low 13.0-17.0 [facility] Comment on above: Order Comment: Speci men Type: ARTERIAL BLOOD SPECIMENOrdering Facility: [facility] Address: [address] [place] [address] Performed By: #### A LLBG ####[facility] LABCLIA [id number] [place] [address] [place] Lactate [Moles/Vol] 1.0 mmol/L Normal 0.5-2.2 [facility] Comment on above: Order Comment: Speci men Type: ARTERIAL BLOOD SPECIMENOrdering Facility: [facility] Address: [address] [place] [address] Performed By: #### A LLBG ####[facility] LABCLIA [id number] [place] [address] [place] LIT[place] 1 Liters/min Normal [facility] Comment on above: Order Comment: Speci men Type: ARTERIAL BLOOD SPECIMENOrdering Facility: [facility] Address: [address] [place] [address] Performed By: #### A LLBG ####[facility] LABCLIA [id number] [place] [address] [place] Methemoglobin (Bld) [Mass fraction] 0.3 % Normal 0.0-1.5 [facility] Comment on above: Order Comment: Speci men Type: ARTERIAL BLOOD SPECIMENOrdering Facility: [facility] Address: [address] [place] [address] Performed By: #### A LLBG ####[facility] LABCLIA [id number] [place] [id number] [facility] [place] O2 THERAPY NC = Nasal Cannula Normal [facility] Comment on above: Order Comment: Speci men Type: ARTERIAL BLOOD SPECIMENOrdering Facility: [facility] Address: [address] [place] [address] Performed By: #### A LLBG ####[facility] LABCLIA [id number] [place] [id number] [facility] [place] Oxygen (Bld) [Partial pressure] 147 mm Hg High 85-95 [facility] Comment on above: Order Comment: Speci men Type: ARTERIAL BLOOD SPECIMENOrdering Facility: [facility] Address: [address] [place] [address] Performed By: #### A LLBG ####[facility] LABCLIA [id number] [address] [place] Oxygen adjusted to patient's actual temperature (Bld) [Partial pressure] 144 mmHg High 85-95 [facility] Comment on above: Order Comment: Speci men Type: ARTERIAL BLOOD SPECIMENOrdering Facility: [facility] Address: [address] [place] [address] Performed By: #### A LLBG ####[facility] LABCLIA [id number] [place] [id number] [place] Oxyhemoglobin (BldA) [Mass fraction] 97 % Normal 95-98 [facility] Comment on above: Order Comment: Speci men Type: ARTERIAL BLOOD SPECIMENOrdering Facility: [facility] Address: [address] [place], [place] [address] Performed By: #### A LLBG ####[facility] LABCLIA [id number] [address] [address] [place] pH (Bld) 7.39 [pH] Normal 7.35-7.45 [facility] Comment on above: Order Comment: Speci men Type: ARTERIAL BLOOD SPECIMENOrdering Facility: [facility] Address: [address] [place] [address] Performed By: #### A LLBG ####[facility] LABCLIA [id number] [place] [address] [place] pH adjusted to patient's actual temperature (Bld) 7.39 Normal 7.35-7.45 [facility] Comment on above: Order Comment: Speci men Type: ARTERIAL BLOOD SPECIMENOrdering Facility: [facility] Address: [address] [place] [address] Performed By: #### A LLBG ####[facility] LABCLIA [id number] [place] [address] [place] Potassium [Moles/Vol] 5.3 mmol/L High 3.5-5.0 [facility] Comment on above: Order Comment: Speci men Type: ARTERIAL BLOOD SPECIMENOrdering Facility: [facility] Address: [address] [place] [address] Performed By: #### A LLBG ####[facility] LABIA [id number] [place] [id number] [place] Sodium [Moles/Vol] 129 mmol/L Low 136-144 [facility] Comment on above: Order Comment: Speci men Type: ARTERIAL BLOOD SPECIMENOrdering Facility: [facility] Address: [address] [place] [address] Performed By: #### A LLBG ####[facility] LABCLIA [id number] [place] [id number] [place] Base excess Calc (Bld) [Moles/Vol] 1 mmol/L Normal 0-2 [facility] Comment on above: Order Comment: Speci men Type: ARTERIAL BLOOD SPECIMENOrdering Facility: [facility] Address: [address] [place] [address] Performed By: #### A LLBG ####[facility] LABIA [id number] [place] [address] [place] Body temperature 97.7 [degF] Normal [facility] Comment on above: Order Comment: Speci men Type: ARTERIAL BLOOD SPECIMENOrdering Facility: [facility] Address: [address] [place] [address] Performed By: #### A LLBG ####[facility] LABIA [id number] [place] [address] [place] Calcium.ionized (Bld) [Mass/Vol] 1.08 mmol/L Normal 1.08-1.30 [facility] Comment on above: Order Comment: Speci men Type: ARTERIAL BLOOD SPECIMENOrdering Facility: [facility] Address: [address] [place] [address] Performed By: #### A LLBG ####[facility] [id number] [place] [address] [place] Calcium.ionized adjusted to pH 7.4 (BldA) [Moles/Vol] 1.07 mmol/L Low 1.08-1.30 [facility] Comment on above: Order Comment: Speci men Type: ARTERIAL BLOOD SPECIMENOrdering Facility: [facility] Address: [address] [place] [address] Performed By: #### A LLBG ####[facility] LABIA [id number] [place] [address] [place] Carboxyhemoglobin (BldA) [Mass fraction] 0.3 % Normal 0.0-2.0 [facility] Comment on above: Order Comment: Speci men Type: ARTERIAL BLOOD SPECIMENOrdering Facility: [facility] Address: [address] [place] [address] Result Comment: Carb oxyhemoglobin Reference Range for Smokers: 2.0-8.0% Performed By: #### A LLBG ####[facility] LABCLIA [id number] [place] [address] [place] CO2 (Bld) [Partial pressure] 44 mm Hg Normal 36-46 [facility] Comment on above: Order Comment: Speci men Type: ARTERIAL BLOOD SPECIMENOrdering Facility: [facility] Address: [address] [place] [address] Performed By: #### A LLBG ####[facility] LABCLIA [id number] [address] [place] CO2 adjusted to patient's actual temperature (Bld) [Partial pressure] 43 mmHg Normal 36-46 [facility] Comment on above: Order Comment: Speci men Type: ARTERIAL BLOOD SPECIMENOrdering Facility: [facility] Address: [address] [place] [address] Performed By: #### A LLBG ####[facility] LABCLIA [id number] [place] [address] [place] Glucose [Mass/Vol] 157 mg/dL High 60-105 [facility] Comment on above: Order Comment: Speci men Type: ARTERIAL BLOOD SPECIMENOrdering Facility: [facility] Address: [address] [place] [address] Performed By: #### A LLBG ####[facility] LABCLIA [id number] [place] [address] [place] HCO3 (Bld) [Moles/Vol] 26 mmol/L Normal 22-26 [facility] Comment on above: Order Comment: Speci men Type: ARTERIAL BLOOD SPECIMENOrdering Facility: [facility] Address: [address] [place] [address] Performed By: #### A LLBG ####[facility] LABCLIA [id number] [address] [id number] [address] [place] Hematocrit (Bld) [Volume fraction] 32.7 % Low 39.0-51.0 [facility] Comment on above: Order Comment: Speci men Type: ARTERIAL BLOOD SPECIMENOrdering Facility: [facility] Address: [address] [place] [address] Performed By: #### A LLBG ####[facility] LABCLIA [id number] [place] [address] [place] Hemoglobin (Bld) [Mass/Vol] 10.6 g/dL Low 13.0-17.0 [facility] Comment on above: Order Comment: Speci men Type: ARTERIAL BLOOD SPECIMENOrdering Facility: [facility] Address: [address] [place] [address] Performed By: #### A LLBG ####[facility] LABCLIA [id number] [place] [address] [place] Lactate [Moles/Vol] 1.2 mmol/L Normal 0.5-2.2 [facility] Comment on above: Order Comment: Speci men Type: ARTERIAL BLOOD SPECIMENOrdering Facility: [facility] Address: [address] [place] [address] Performed By: #### A LLBG ####[facility] LABCLIA [id number] [place] [address] [place] Methemoglobin (Bld) [Mass fraction] 0.2 % Normal 0.0-1.5 [facility] Comment on above: Order Comment: Speci men Type: ARTERIAL BLOOD SPECIMENOrdering Facility: [facility] Address: [address] [place] [address] Performed By: #### A LLBG ####[facility] LABCLIA [id number] [place] [address] [place] O2 THERAPY RA=Room Air Normal [facility] Comment on above: Order Comment: Speci men Type: ARTERIAL BLOOD SPECIMENOrdering Facility: [facility] Address: [address] [place] [address] Performed By: #### A LLBG ####[facility] LABCLIA [id number] [address] [address] [place] Oxygen (Bld) [Partial pressure] 136 mm Hg High 85-95 [facility] Comment on above: Order Comment: Speci men Type: ARTERIAL BLOOD SPECIMENOrdering Facility: [facility] Address: [address] [place] [address] Performed By: #### A LLBG ####[facility] LABCLIA [id number] [address] [address] [place] Oxygen adjusted to patient's actual temperature (Bld) [Partial pressure] 134 mmHg High 85-95 [facility] Comment on above: Order Comment: Speci men Type: ARTERIAL BLOOD SPECIMENOrdering Facility: [facility] Address: [address] [place] [address] Performed By: #### A LLBG ####[facility] LABCLIA [id number] [place] [id number] [place] Oxyhemoglobin (BldA) [Mass fraction] 97 % Normal 95-98 [facility] Comment on above: Order Comment: Speci men Type: ARTERIAL BLOOD SPECIMENOrdering Facility: [facility] Address: [address] [place] [address] Performed By: #### A LLBG ####[facility] LABCLIA [id number] [place] [id number] [place] pH (Bld) 7.39 [pH] Normal 7.35-7.45 [facility] Comment on above: Order Comment: Speci men Type: ARTERIAL BLOOD SPECIMENOrdering Facility: [facility] Address: [address] [place] [address] Performed By: #### A LLBG ####[facility] LABCLIA [id number] [place] [id number] [place] pH adjusted to patient's actual temperature (Bld) 7.39 Normal 7.35-7.45 [facility] Comment on above: Order Comment: Speci men Type: ARTERIAL BLOOD SPECIMENOrdering Facility: [facility] Address: [address] [place] [address] Performed By: #### A LLBG ####[facility] LABCLIA [id number] [place] [address] [place] PO2 / FIO2 RATIO 648 mmHg Normal >300 [facility] Comment on above: Order Comment: Speci men Type: ARTERIAL BLOOD SPECIMENOrdering Facility: [facility] Address: [address] [place] [address] Performed By: #### A LLBG ####[facility] LABCLIA [id number] [place] [address] [place] Potassium [Moles/Vol] 5.3 mmol/L High 3.5-5.0 [facility] Comment on above: Order Comment: Speci men Type: ARTERIAL BLOOD SPECIMENOrdering Facility: [facility] Address: [address] [place] [address] Performed By: #### A LLBG ####[facility] LABCLIA [id number] [place] [address] [place] Sodium [Moles/Vol] 129 mmol/L Low 136-144 [facility] Comment on above: Order Comment: Speci men Type: ARTERIAL BLOOD SPECIMENOrdering Facility: [facility] Address: [address] [place] [address] Performed By: #### A LLBG ####[facility] LABCLIA [id number] [place] [id number] [place] Base excess Calc (Bld) [Moles/Vol] 1 mmol/L Normal 0-2 [facility] Comment on above: Order Comment: Speci men Type: ARTERIAL BLOOD SPECIMENOrdering Facility: [facility] Address: [address] [place] [address] Performed By: #### A LLBG ####[facility] LABCLIA [id number] [place] [address] [place] Body temperature 97.88 [degF] Normal [facility] Comment on above: Order Comment: Speci men Type: ARTERIAL BLOOD SPECIMENOrdering Facility: [facility] Address: [address] [place] [address] Performed By: #### A LLBG ####[facility] LABCLIA [id number] [place] [address] [place] Calcium.ionized (Bld) [Mass/Vol] 1.12 mmol/L Normal 1.08-1.30 [facility] Comment on above: Order Comment: Speci men Type: ARTERIAL BLOOD SPECIMENOrdering Facility: [facility] Address: [address] [place] [address] Performed By: #### A LLBG ####[facility] LABIA [id number] [place] [address] [place] Calcium.ionized adjusted to pH 7.4 (BldA) [Moles/Vol] 1.11 mmol/L Normal 1.08-1.30 [facility] Comment on above: Order Comment: Speci men Type: ARTERIAL BLOOD SPECIMENOrdering Facility: [facility] Address: [address] [place] [address] Performed By: #### A LLBG ####[facility] LABIA [id number] [place] [address] [place] Carboxyhemoglobin (BldA) [Mass fraction] 1.1 % Normal 0.0-2.0 [facility] Comment on above: Order Comment: Speci men Type: ARTERIAL BLOOD SPECIMENOrdering Facility: [facility] Address: [address] [place] [address] Result Comment: Carb oxyhemoglobin Reference Range for Smokers: 2.0-8.0% Performed By: #### A LLBG ####[facility] LABCLIA [id number] [address] [address] [place] CO2 (Bld) [Partial pressure] 43 mm Hg Normal 36-46 [facility] Comment on above: Order Comment: Lesvia men Type: ARTERIAL BLOOD SPECIMENOrdering Facility: [facility] Address: [address] [place] [address] Performed By: #### A LLBG ####[facility] LABCLIA [id number] [address] [place] CO2 adjusted to patient's actual temperature (Bld) [Partial pressure] 42 mmHg Normal 36-46 [facility] Comment on above: Order Comment: Lesvia men Type: ARTERIAL BLOOD SPECIMENOrdering Facility: [facility] Address: [address] [place] [address] Performed By: #### A LLBG ####[facility] LABIA [id number] [place] [address] [place] Glucose [Mass/Vol] 175 mg/dL High 74-99 [facility] Comment on above: Order Comment: Ruddyi men Type: ARTERIAL BLOOD SPECIMENOrdering Facility: [facility] Address: [address] [place] [address] Performed By: #### A LLBG ####[facility] LABIA [id number] [address] [place] Order Comment: Ruddyi men Type: BLOOD SPECIMENOrdering Facility: [facility] Address: [address] [place] [address] Result Comment: The [place] [employer] (ADA) provides guidance for [...] Standards of Medical Care in Diabetes 2016, [place] [employer]. Diabetes Care. 2016.39(Suppl 1). Performed By: #### 2 4321-2 ####[facility] LABCLIA [id number] [place] [address] [place] HCO3 (Bld) [Moles/Vol] 25 mmol/L Normal 22-26 [facility] Comment on above: Order Comment: Speci men Type: ARTERIAL BLOOD SPECIMENOrdering Facility: [facility] Address: [address] [place] [address] Performed By: #### A LLBG ####[facility] LABIA [id number] [place] [address] [place] Hematocrit (Bld) [Volume fraction] 33.9 % Low 39.0-51.0 [facility] Comment on above: Order Comment: Speci men Type: ARTERIAL BLOOD SPECIMENOrdering Facility: [facility] Address: [address] [place] [address] Performed By: #### A LLBG ####[facility] LABIA [id number] [place] [address] [place] Hemoglobin (Bld) [Mass/Vol] 11.0 g/dL Low 13.0-17.0 [facility] Comment on above: Order Comment: Speci men Type: ARTERIAL BLOOD SPECIMENOrdering Facility: [facility] Address: [address] [place] [address] Performed By: #### A LLBG ####[facility] LABIA [id number] [place] [address] [place] Lactate [Moles/Vol] 1.0 mmol/L Normal 0.5-2.2 [facility] Comment on above: Order Comment: Speci men Type: ARTERIAL BLOOD SPECIMENOrdering Facility: [facility] Address: [address] [place] [address] Performed By: #### A LLBG ####[facility] LABCLIA [id number] [address] [place] [address] [place] Methemoglobin (Bld) [Mass fraction] 1.0 % Normal 0.0-1.5 [facility] Comment on above: Order Comment: Speci men Type: ARTERIAL BLOOD SPECIMENOrdering Facility: [facility] Address: [address] [place] [address] Performed By: #### A LLBG ####[facility] LABCLIA [id number] [address] [place] [address] [place] O2 THERAPY RA=Room Air Normal [facility] Comment on above: Order Comment: Speci men Type: ARTERIAL BLOOD SPECIMENOrdering Facility: [facility] Address: [address] [place] [address] Performed By: #### A LLBG ####[facility] LABCLIA [id number] [address] [place] [address] [place] Oxygen (Bld) [Partial pressure] 169 mm Hg High 85-95 [facility] Comment on above: Order Comment: Speci men Type: ARTERIAL BLOOD SPECIMENOrdering Facility: [facility] Address: [address] [place], [place] [address] Performed By: #### A LLBG ####[facility] LABCLIA [id number] [address] [place] [address] [place] Oxygen adjusted to patient's actual temperature (Bld) [Partial pressure] 167 mmHg High 85-95 [facility] Comment on above: Order Comment: Speci men Type: ARTERIAL BLOOD SPECIMENOrdering Facility: [facility] Address: [address] [place], [place] [address] Performed By: #### A LLBG ####[facility] LABCLIA [id number] [facility] [address] [place] [address] [place] Oxyhemoglobin (BldA) [Mass fraction] 97 % Normal 95-98 [facility] Comment on above: Order Comment: Speci men Type: ARTERIAL BLOOD SPECIMENOrdering Facility: [facility] Address: [address] [place] [address] Performed By: #### A LLBG ####[facility] LABCLIA [id number] [place] [address] [place] pH (Bld) 7.39 [pH] Normal 7.35-7.45 [facility] Comment on above: Order Comment: Speci men Type: ARTERIAL BLOOD SPECIMENOrdering Facility: [facility] Address: [address] [place] [address] Performed By: #### A LLBG ####[facility] LABCLIA [id number] [place] [address] [place] pH adjusted to patient's actual temperature (Bld) 7.39 Normal 7.35-7.45 [facility] Comment on above: Order Comment: Speci men Type: ARTERIAL BLOOD SPECIMENOrdering Facility: [facility] Address: [address] [place] [address] Performed By: #### A LLBG ####[facility] LABCLIA [id number] [place] [address] [place] PO2 / FIO2 RATIO 805 mmHg Normal >300 [facility] Comment on above: Order Comment: Speci men Type: ARTERIAL BLOOD SPECIMENOrdering Facility: [facility] Address: [address] [place] [address] Performed By: #### A LLBG ####[facility] LABCLIA [id number] [place] [id number] [place] Potassium [Moles/Vol] 5.3 mmol/L High 3.5-5.0 [facility] Comment on above: Order Comment: Speci men Type: ARTERIAL BLOOD SPECIMENOrdering Facility: [facility] Address: [address] [place] [address] Performed By: #### A LLBG ####[facility] LABCLIA [id number] [place] [id number] [place] Sodium [Moles/Vol] 131 mmol/L Low 136-144 [facility] Comment on above: Order Comment: Speci men Type: ARTERIAL BLOOD SPECIMENOrdering Facility: [facility] Address: [address] [place] [address] Performed By: #### A LLBG ####[facility] LABCLIA [id number] [place] [address] [place] Base excess Calc (Bld) [Moles/Vol] 0 mmol/L Normal 0-2 [facility] Comment on above: Order Comment: Speci men Type: ARTERIAL BLOOD SPECIMENOrdering Facility: [facility] Address: [address] [place] [address] Performed By: #### A LLBG ####[facility] LABCLIA [id number] [place] [address] [place] Body temperature 97.52 [degF] Normal [facility] Comment on above: Order Comment: Speci men Type: ARTERIAL BLOOD SPECIMENOrdering Facility: [facility] Address: [address] [place] [address] Performed By: #### A LLBG ####[facility] LABCLIA [id number] [place] [address] [place] Calcium.ionized (Bld) [Mass/Vol] 1.10 mmol/L Normal 1.08-1.30 [facility] Comment on above: Order Comment: Speci men Type: ARTERIAL BLOOD SPECIMENOrdering Facility: [facility] Address: [address] [place] [address] Performed By: #### A LLBG ####[facility] LABCLIA [id number] [place] [address] [place] Calcium.ionized adjusted to pH 7.4 (BldA) [Moles/Vol] 1.09 mmol/L Normal 1.08-1.30 [facility] Comment on above: Order Comment: Speci men Type: ARTERIAL BLOOD SPECIMENOrdering Facility: [facility] Address: [address] [place] [address] Performed By: #### A LLBG ####[facility] LABCLIA [id number] [address] [address] [place] Carboxyhemoglobin (BldA) [Mass fraction] 1.3 % Normal 0.0-2.0 [facility] Comment on above: Order Comment: Speci men Type: ARTERIAL BLOOD SPECIMENOrdering Facility: [facility] Address: [address] [place], [place] [id number] Result Comment: Carb oxyhemoglobin Reference Range for Smokers: 2.0-8.0% Performed By: #### A LLBG ####[facility] LABCLIA [id number] [place] [id number] [place] CO2 (Bld) [Partial pressure] 45 mm Hg Normal 36-46 [facility] Comment on above: Order Comment: Speci men Type: ARTERIAL BLOOD SPECIMENOrdering Facility: [facility] Address: [address] [place] [address] Performed By: #### A LLBG ####[facility] LABCLIA [id number] [place] [address] [place] CO2 adjusted to patient's actual temperature (Bld) [Partial pressure] 43 mmHg Normal 36-46 [facility] Comment on above: Order Comment: Speci men Type: ARTERIAL BLOOD SPECIMENOrdering Facility: [facility] Address: [address] [place] [address] Performed By: #### A LLBG ####[facility] LABCLIA [id number] [place] [id number] [place] Glucose [Mass/Vol] 179 mg/dL High 60-105 [facility] Comment on above: Order Comment: Speci men Type: ARTERIAL BLOOD SPECIMENOrdering Facility: [facility] Address: [address] [place] [address] Performed By: #### A LLBG ####[facility] LABCLIA [id number] [place] [address] [place] HCO3 (Bld) [Moles/Vol] 25 mmol/L Normal 22-26 [facility] Comment on above: Order Comment: Speci men Type: ARTERIAL BLOOD SPECIMENOrdering Facility: [facility] Address: [address] [place] [address] Performed By: #### A LLBG ####[facility] LABCLIA [id number] [place] [address] [place] Hematocrit (Bld) [Volume fraction] 35.9 % Low 39.0-51.0 [facility] Comment on above: Order Comment: Speci men Type: ARTERIAL BLOOD SPECIMENOrdering Facility: [facility] Address: [address] [place] [address] Performed By: #### A LLBG ####[facility] LABCLIA [id number] [place] [address] [place] Hemoglobin (Bld) [Mass/Vol] 11.6 g/dL Low 13.0-17.0 [facility] Comment on above: Order Comment: Speci men Type: ARTERIAL BLOOD SPECIMENOrdering Facility: [facility] Address: [address] [place] [address] Performed By: #### A LLBG ####[facility] LABCLIA [id number] [place] [address] [place] Lactate [Moles/Vol] 1.3 mmol/L Normal 0.5-2.2 [facility] Comment on above: Order Comment: Speci men Type: ARTERIAL BLOOD SPECIMENOrdering Facility: [facility] Address: [address] [place] [address] Performed By: #### A LLBG ####[facility] LABCLIA [id number] [place] [address] [place] Methemoglobin (Bld) [Mass fraction] 1.4 % Normal 0.0-1.5 [facility] Comment on above: Order Comment: Speci men Type: ARTERIAL BLOOD SPECIMENOrdering Facility: [facility] Address: [address] [place] [address] Performed By: #### A LLBG ####[facility] LABCLIA [id number] [place] [id number] [place] O2 THERAPY RA=Room Air Normal [facility] Comment on above: Order Comment: Speci men Type: ARTERIAL BLOOD SPECIMENOrdering Facility: [facility] Address: [address] [place] [address] Performed By: #### A LLBG ####[facility] LABCLIA [id number] [place] [id number] [place] Oxygen (Bld) [Partial pressure] 95 mm Hg Normal 85-95 [facility] Comment on above: Order Comment: Speci men Type: ARTERIAL BLOOD SPECIMENOrdering Facility: [facility] Address: [address] [place] [address] Performed By: #### A LLBG ####[facility] LABCLIA [id number] [place] [address] [place] Oxygen adjusted to patient's actual temperature (Bld) [Partial pressure] 92 mmHg Normal 85-95 [facility] Comment on above: Order Comment: Speci men Type: ARTERIAL BLOOD SPECIMENOrdering Facility: [facility] Address: [address] [place] [address] Performed By: #### A LLBG ####[facility] LABCLIA [id number] [place] [id number] [place] Oxyhemoglobin (BldA) [Mass fraction] 94 % Low 95-98 [facility] Comment on above: Order Comment: Speci men Type: ARTERIAL BLOOD SPECIMENOrdering Facility: [facility] Address: [address] [place], [place] [address] Performed By: #### A LLBG ####[facility] LABCLIA [id number] [address] [address] [place] pH (Bld) 7.37 [pH] Normal 7.35-7.45 [facility] Comment on above: Order Comment: Speci men Type: ARTERIAL BLOOD SPECIMENOrdering Facility: [facility] Address: [address] [place] [address] Performed By: #### A LLBG ####[facility] LABCLIA [id number] [place] [address] [place] pH adjusted to patient's actual temperature (Bld) 7.38 Normal 7.35-7.45 [facility] Comment on above: Order Comment: Speci men Type: ARTERIAL BLOOD SPECIMENOrdering Facility: [facility] Address: [address] [place] [address] Performed By: #### A LLBG ####[facility] LABCLIA [id number] [place] [address] [place] PO2 / FIO2 RATIO 452 mmHg Normal >300 [facility] Comment on above: Order Comment: Speci men Type: ARTERIAL BLOOD SPECIMENOrdering Facility: [facility] Address: [address] [place] [address] Performed By: #### A LLBG ####[facility] LABCLIA [id number] [place] [address] [place] Potassium [Moles/Vol] 5.3 mmol/L High 3.5-5.0 [facility] Comment on above: Order Comment: Speci men Type: ARTERIAL BLOOD SPECIMENOrdering Facility: [facility] Address: [address] [place] [address] Performed By: #### A LLBG ####[facility] LABCLIA [id number] [place] [id number] [place] Sodium [Moles/Vol] 130 mmol/L Low 136-144 [facility] Comment on above: Order Comment: Speci men Type: ARTERIAL BLOOD SPECIMENOrdering Facility: [facility] Address: [address] [place] [address] Performed By: #### A LLBG ####[facility] LABIA [id number] [place] [address] [place] Base excess Calc (Bld) [Moles/Vol] 2 mmol/L Normal 0-2 [facility] Comment on above: Order Comment: Speci men Type: ARTERIAL BLOOD SPECIMENOrdering Facility: [facility] Address: [address] [place] [address] Performed By: #### A LLBG ####[facility] LABIA [id number] [place] [address] [place] Body temperature 98.6 [degF] Normal [facility] Comment on above: Order Comment: Speci men Type: ARTERIAL BLOOD SPECIMENOrdering Facility: [facility] Address: [address] [place] [address] Performed By: #### A LLBG ####[facility] LABIA [id number] [place] [address] [place] Calcium.ionized (Bld) [Mass/Vol] 1.10 mmol/L Normal 1.08-1.30 [facility] Comment on above: Order Comment: Speci men Type: ARTERIAL BLOOD SPECIMENOrdering Facility: [facility] Address: [address] [place] [address] Performed By: #### A LLBG ####[facility] LABCLIA [id number] [place] [address] [place] Calcium.ionized adjusted to pH 7.4 (BldA) [Moles/Vol] 1.08 mmol/L Normal 1.08-1.30 [facility] Comment on above: Order Comment: Speci men Type: ARTERIAL BLOOD SPECIMENOrdering Facility: [facility] Address: [address] [place] [address] Performed By: #### A LLBG ####[facility] LABCLIA [id number] [place] [address] [place] Carboxyhemoglobin (BldA) [Mass fraction] 1.4 % Normal 0.0-2.0 [facility] Comment on above: Order Comment: Speci men Type: ARTERIAL BLOOD SPECIMENOrdering Facility: [facility] Address: [address] [place] [address] Result Comment: Carb oxyhemoglobin Reference Range for Smokers: 2.0-8.0% Performed By: #### A LLBG ####[facility] LABCLIA [id number] [place] [address] [place] CO2 (Bld) [Partial pressure] 47 mm Hg High 36-46 [facility] Comment on above: Order Comment: Speci men Type: ARTERIAL BLOOD SPECIMENOrdering Facility: [facility] Address: [address] [place] [address] Performed By: #### A LLBG ####[facility] LABCLIA [id number] [place] [address] [place] Glucose [Mass/Vol] 228 mg/dL High 60-105 [facility] Comment on above: Order Comment: Speci men Type: ARTERIAL BLOOD SPECIMENOrdering Facility: [facility] Address: [address] [place] [address] Performed By: #### A LLBG ####[facility] LABCLIA [id number] [place] [address] [place] HCO3 (Bld) [Moles/Vol] 27 mmol/L High 22-26 [facility] Comment on above: Order Comment: Speci men Type: ARTERIAL BLOOD SPECIMENOrdering Facility: [facility] Address: [address] [place] [address] Performed By: #### A LLBG ####[facility] LABCLIA [id number] [place] [address] [place] Hematocrit (Bld) [Volume fraction] 34.4 % Low 39.0-51.0 [facility] Comment on above: Order Comment: Speci men Type: ARTERIAL BLOOD SPECIMENOrdering Facility: [facility] Address: [address] [place] [address] Performed By: #### A LLBG ####[facility] LABIA [id number] [place] [address] [place] Hemoglobin (Bld) [Mass/Vol] 11.2 g/dL Low 13.0-17.0 [facility] Comment on above: Order Comment: Speci men Type: ARTERIAL BLOOD SPECIMENOrdering Facility: [facility] Address: [address] [place] [address] Performed By: #### A LLBG ####[facility] LABIA [id number] [place] [address] [place] Lactate [Moles/Vol] 1.2 mmol/L Normal 0.5-2.2 [facility] Comment on above: Order Comment: Speci men Type: ARTERIAL BLOOD SPECIMENOrdering Facility: [facility] Address: [address] [place] [address] Performed By: #### A LLBG ####[facility] LABIA [id number] [place] [address] [place] Methemoglobin (Bld) [Mass fraction] 1.3 % Normal 0.0-1.5 [facility] Comment on above: Order Comment: Speci men Type: ARTERIAL BLOOD SPECIMENOrdering Facility: [facility] Address: [address] [place] [address] Performed By: #### A LLBG ####[facility] LABIA [id number] [place] [address] [place] O2 THERAPY RA=Room Air Normal [facility] Comment on above: Order Comment: Speci men Type: ARTERIAL BLOOD SPECIMENOrdering Facility: [facility] Address: [address] [place] [address] Performed By: #### A LLBG ####[facility] LABCLIA [id number] [place] [id number] [place] Oxygen (Bld) [Partial pressure] 69 mm Hg Low 85-95 [facility] Comment on above: Order Comment: Speci men Type: ARTERIAL BLOOD SPECIMENOrdering Facility: [facility] Address: [address] [place] [address] Performed By: #### A LLBG ####[facility] LABCLIA [id number] [place] [address] [place] Oxyhemoglobin (BldA) [Mass fraction] 90 % Low 95-98 [facility] Comment on above: Order Comment: Speci men Type: ARTERIAL BLOOD SPECIMENOrdering Facility: [facility] Address: [address] [place] [address] Performed By: #### A LLBG ####[facility] LABCLIA [id number] [place] [id number] [place] pH (Bld) 7.38 [pH] Normal 7.35-7.45 [facility] Comment on above: Order Comment: Speci men Type: ARTERIAL BLOOD SPECIMENOrdering Facility: [facility] Address: [address] [place] [address] Performed By: #### A LLBG ####[facility] LABCLIA [id number] [place] [id number] [place] PO2 / FIO2 RATIO 329 mmHg Normal >300 [facility] Comment on above: Order Comment: Speci men Type: ARTERIAL BLOOD SPECIMENOrdering Facility: [facility] Address: [address] [place] [address] Performed By: #### A LLBG ####[facility] LABCLIA [id number] [place] [id number] [place] Potassium [Moles/Vol] 5.1 mmol/L High 3.5-5.0 [facility] Comment on above: Order Comment: Speci men Type: ARTERIAL BLOOD SPECIMENOrdering Facility: [facility] Address: [address] [place] [address] Performed By: #### A LLBG ####[facility] LABCLIA [id number] [address] [address] [place] Sodium [Moles/Vol] 130 mmol/L Low 136-144 [facility] Comment on above: Order Comment: Speci men Type: ARTERIAL BLOOD SPECIMENOrdering Facility: [facility] Address: [address] [place] [place] [id number] Performed By: #### A LLBG ####[facility] LABCLIA [id number] [address] [address] [place] Basic Metabolic Profile (BMP )on 11-25-2024 BUN Normal 4-19 [facility] Comment on above: Result Comment: Canc elled via OM: MD Ordered Performed By: #### L 500.2500, L100.0100 ####[facility] [address] [place], [address] BUN/CRE Normal 10-20 [facility] Comment on above: Result Comment: Canc elled via OM: MD Ordered Performed By: #### L 500.2500, L100.0100 ####[facility] [address] [place], [address] Calcium Normal 7.6-11.0 [facility] Comment on above: Result Comment: Canc elled via OM: MD Ordered Performed By: #### L 500.2500, L100.0100 ####[facility] [address] [place], [address] CL Normal 98-108 [facility] Comment on above: Result Comment: Canc elled via OM: MD Ordered Performed By: #### L 500.2500, L100.0100 ####[facility] [address] [place], [address] CO2 Normal 21.0-32.0 [facility] Comment on above: Result Comment: Canc elled via OM: MD Ordered Performed By: #### L 500.2500, L100.0100 ####[facility] [address] [place], [address] CREAT,SERUM Normal 0.70-1.20 [facility] Comment on above: Result Comment: Canc elled via OM: MD Ordered Performed By: #### L 500.2500, L100.0100 ####[facility] [address] [place], [address] eGFR Normal >60 [facility] Comment on above: Result Comment: Canc elled via OM: MD Ordered Performed By: #### L 500.2500, L100.0100 ####[facility] [address] [place], [address] GAP Normal 5-15 [facility] Comment on above: Result Comment: Canc elled via OM: MD Ordered Performed By: #### L 500.2500, L100.0100 ####[facility] [address] [place], [address] GLU Normal 70-99 [facility] Comment on above: Result Comment: Canc elled via OM: MD Ordered Performed By: #### L 500.2500, L100.0100 ####[facility] [address] [place], [address] Potassium Normal 3.3-5.1 [facility] Comment on above: Result Comment: Canc elled via OM: MD Ordered Performed By: #### L 500.2500, L100.0100 ####[facility] [address] [place], [address] Basic Metabolic Profile (BMP) Normal 133-145 [facility] Comment on above: Result Comment: Canc elled via OM: MD Ordered Performed By: #### L 500.2500, L100.0100 ####[facility] [address] [place], [address] Basic metabolic 2000 panelon 11-25-2024 Anion gap [Moles/Vol] 18 mmol/L High 8-15 [facility] Comment on above: Order Comment: Speci men Type: BLOOD SPECIMENOrdering Facility: [facility] Address: [address] [place] [address] Performed By: #### 1 9123-9, 277-, 36048-4 ####[facility] LABCLIA [id number] [place] [id number] [place] Calcium [Mass/Vol] 8.9 mg/dL Normal 8.5-10.2 [facility] Comment on above: Order Comment: Speci men Type: BLOOD SPECIMENOrdering Facility: [facility] Address: [address] [place] [address] Performed By: #### 1 9123-9, 27711-20, 37190-0 ####[facility] LABCLIA [id number] [place] [id number] [place] Chloride [Moles/Vol] 90 mmol/L Low 98-107 [facility] Comment on above: Order Comment: Speci men Type: BLOOD SPECIMENOrdering Facility: [facility] Address: [address] [place] [address] Performed By: #### 1 9123-9, 27711-20, 95666-3 ####[facility] LABCLIA [id number] [address] [address] [place] CO2 [Moles/Vol] 23 mmol/L Normal 22-30 [facility] Comment on above: Order Comment: Speci men Type: BLOOD SPECIMENOrdering Facility: [facility] Address: [address] [place], [place] [address] Performed By: #### 1 9123-9, 2777-1, 58146-3 ####[facility] LABCLIA [id number] [address] [address] [place] Creatinine [Mass/Vol] 6.58 mg/dL High 0.73-1.22 [facility] Comment on above: Order Comment: Lesvia aleman Type: BLOOD SPECIMENOrdering Facility: [facility] Address: [address] [place] [address] Performed By: #### 1 9123-9, 2777-1, 60719-9 ####[facility] [id number] [place] [address] [place] Creatinine and Glomerular filtration rate.predicted panel (S/P/Bld) 8 mL/min/1.73m??? Low >=60 [facility] Comment on above: Order Comment: Lesvia aleman Type: BLOOD SPECIMENOrdering Facility: [facility] Address: [address] [place] [address] Result Comment: Tessa mated Glomerular Filtration Rate [...] GFR. Performed By: #### 1 9123-9, 2777-, 13079-4 ####[facility] [id number] [place] [id number] [place] Glucose [Mass/Vol] 75 mg/dL Normal 74-99 [facility] Comment on above: Order Comment: Lesvia ash Type: BLOOD SPECIMENOrdering Facility: [facility] Address: [address] [place] [address] Result Comment: The [place] [employer] (ADA) provides guidance for [...] Standards of Medical Care in Diabetes 2016, [place] [employer]. Diabetes Care. 2016.39(Suppl 1). Performed By: #### 1 9123-9, 2777-, 34915-0 ####[facility] LABCLIA [id number] [place] [address] [place] Potassium [Moles/Vol] 5.2 mmol/L High 3.7-5.1 [facility] Comment on above: Order Comment: Ruddyi ash Type: BLOOD SPECIMENOrdering Facility: [facility] Address: [address] [place] [address] Performed By: #### 1 9123-9, 2776-05, 20483-3 ####[facility] LABCLIA [id number] [place] [id number] [place] Sodium [Moles/Vol] 131 mmol/L Low 136-144 [facility] Comment on above: Order Comment: Lesvia aleman Type: BLOOD SPECIMENOrdering Facility: [facility] Address: [address] [place] [address] Performed By: #### 1 9123-9, 27711-20, 22847-1 ####[facility] LABCLIA [id number] [place] [id number] [place] Urea nitrogen [Mass/Vol] 88 mg/dL High 9-24 [facility] Comment on above: Order Comment: Ruddyi men Type: BLOOD SPECIMENOrdering Facility: [facility] Address: [address] [place] [address] Performed By: #### 1 9123-9, 27711-20, 22687-4 ####[facility] LABCLIA [id number] [address] [address] [place] Anion gap [Moles/Vol] 19 mmol/L High 8-15 [facility] Comment on above: Order Comment: Speci men Type: BLOOD SPECIMENOrdering Facility: [facility] Address: [address] [place] [address] Performed By: #### 2 4321-2 ####[facility] LABCLIA [id number] [facility]ENTERLID AVENUEDESK [address] [place] [address] [place] Calcium [Mass/Vol] 8.9 mg/dL Normal 8.5-10.2 [facility] Comment on above: Order Comment: Speci men Type: BLOOD SPECIMENOrdering Facility: [facility] Address: [address] [place] [address] Performed By: #### 2 4321-2 ####[facility] LABCLIA [id number] [facility] [address] [place] [address] [place] Chloride [Moles/Vol] 89 mmol/L Low 98-107 [facility] Comment on above: Order Comment: Speci men Type: BLOOD SPECIMENOrdering Facility: [facility] Address: [address] [place] [address] Performed By: #### 2 4321-2 ####[facility] LABCLIA [id number] [facility] [address] [place] [address] [place] CO2 [Moles/Vol] 22 mmol/L Normal 22-30 [facility] Comment on above: Order Comment: Speci men Type: BLOOD SPECIMENOrdering Facility: [facility] Address: [address] [place] [address] Performed By: #### 2 4321-2 ####[facility] LABCLIA [id number] [facility] [address] [address] [place] Creatinine [Mass/Vol] 6.20 mg/dL High 0.73-1.22 [facility] Comment on above: Order Comment: Speci men Type: BLOOD SPECIMENOrdering Facility: [facility] Address: [address] [place] [address] Performed By: #### 2 4321-2 ####[facility] LABCLIA [id number] [facility] [place] [id number] [place] Creatinine and Glomerular filtration rate.predicted panel (S/P/Bld) 8 mL/min/1.73m??? Low >=60 [facility] Comment on above: Order Comment: Speci men Type: BLOOD SPECIMENOrdering Facility: [facility] Address: [address] [place] [address] Result Comment: Tessa mated Glomerular Filtration Rate [...] actual GFR. Performed By: #### 2 4321-2 ####[facility] LABCLIA [id number] [place] [address] [place] Potassium [Moles/Vol] 5.5 mmol/L High 3.7-5.1 [facility] Comment on above: Order Comment: Speci men Type: BLOOD SPECIMENOrdering Facility: [facility] Address: [address] [place] [address] Performed By: #### 2 4321-2 ####[facility] LABCLIA [id number] [place] [id number] [place] Sodium [Moles/Vol] 130 mmol/L Low 136-144 [facility] Comment on above: Order Comment: Speci men Type: BLOOD SPECIMENOrdering Facility: [facility] Address: [address] [address] Performed By: #### 2 4321-2 ####[facility] LABIA [id number] [place] [id number] [place] Urea nitrogen [Mass/Vol] 83 mg/dL High 9-24 [facility] Comment on above: Order Comment: Speci men Type: BLOOD SPECIMENOrdering Facility: [facility] Address: [address] [place] [address] Performed By: #### 2 4321-2 ####[facility] LABCLIA [id number] DEREK STEINER [id number] [place] [address] [place] CBC W/Diff, Automatedon 07-0 -2024 Absolute Neut Normal 2.0-7.7 [facility] Comment on above: Result Comment: Canc elled via OM: MD Ordered Performed By: #### L 500.2500, L100.0100 ####[facility] [address] [place], [address] HCT Normal 40-54 [facility] Comment on above: Result Comment: Canc elled via OM: MD Ordered Performed By: #### L 500.2500, L100.0100 ####[facility] [address] [place], [address] HGB Normal 13.0-16.5 [facility] Comment on above: Result Comment: Canc elled via OM: MD Ordered Performed By: #### L 500.2500, L100.0100 ####[facility] [address] [place], [address] MCH Normal 27.0-32.0 [facility] Comment on above: Result Comment: Canc elled via OM: MD Ordered Performed By: #### L 500.2500, L100.0100 ####[facility] [address] [place], [address] MCHC Normal 32-36 [facility] Comment on above: Result Comment: Canc elled via OM: MD Ordered Performed By: #### L 500.2500, L100.0100 ####[facility] [address] [place], [address] MCV Normal 80-94 [facility] Comment on above: Result Comment: Canc elled via OM: MD Ordered Performed By: #### L 500.2500, L100.0100 ####[facility] [address] [place], [address] NEUT% Normal 47-70 [facility] Comment on above: Result Comment: Canc elled via OM: MD Ordered Performed By: #### L 500.2500, L100.0100 ####[facility] [address] [place], [address] PLT Normal 150-450 [facility] Comment on above: Result Comment: Canc elled via OM: MD Ordered Performed By: #### L 500.2500, L100.0100 ####[facility] [address] [place], [address] RBC Normal 4.6-6.2 [facility] Comment on above: Result Comment: Canc elled via OM: MD Ordered Performed By: #### L 500.2500, L100.0100 ####[facility] [address] [place], [address] RDW CV Normal 11.6-14.6 [facility] Comment on above: Result Comment: Canc elled via OM: MD Ordered Performed By: #### L 500.2500, L100.0100 ####[facility] [address] [place], [address] RDW SD Normal 35.1-43.9 [facility] Comment on above: Result Comment: Canc elled via OM: MD Ordered Performed By: #### L 500.2500, L100.0100 ####[facility] [address] [place], [address] WBC Normal 4.4-11.0 [facility] Comment on above: Result Comment: Canc elled via OM: MD Ordered Performed By: #### L 500.2500, L100.0100 ####[facility] [address] [place], [address] CBC panel Auto (Bld)on 11-25 Erythrocyte distribution width (RBC) [Ratio] 16.2 % High 11.5-15.0 [facility] Comment on above: Order Comment: Speci men Type: BLOOD SPECIMENOrdering Facility: [facility] Address: [address] [place] [address] Performed By: #### 5 8410-2 ####[facility] LABIA [id number] [place] [address] [place] Hematocrit (Bld) [Volume fraction] 34.0 % Low 39.0-51.0 [facility] Comment on above: Order Comment: Speci men Type: BLOOD SPECIMENOrdering Facility: [facility] Address: [address] [place] [address] Performed By: #### 5 8410-2 ####[facility] LABIA [id number] [place] [address] [place] Hemoglobin (Bld) [Mass/Vol] 10.6 g/dL Low 13.0-17.0 [facility] Comment on above: Order Comment: Speci men Type: BLOOD SPECIMENOrdering Facility: [facility] Address: [address] [place] [address] Performed By: #### 5 8410-2 ####[facility] LABIA [id number] [place] [address] [place] MCH (RBC) [Entitic mass] 27.8 pg Normal 26.0-34.0 [facility] Comment on above: Order Comment: Speci men Type: BLOOD SPECIMENOrdering Facility: [facility] Address: [address] [place] [address] Performed By: #### 5 8410-2 ####[facility] LABIA [id number] [place] [id number] [place] MCHC (RBC) [Mass/Vol] 31.2 g/dL Normal 30.5-36.0 [facility] Comment on above: Order Comment: Speci men Type: BLOOD SPECIMENOrdering Facility: [facility] Address: [address] [place] [address] Performed By: #### 5 8410-2 ####[facility] LABIA [id number] [place] [id number] [place] MCV (RBC) [Entitic vol] 89.2 fL Normal 80.0-100.0 [facility] Comment on above: Order Comment: Speci men Type: BLOOD SPECIMENOrdering Facility: [facility] Address: [address] [place] [address] Performed By: #### 5 8410-2 ####[facility] LABIA [id number] [place] [address] [place] Nucleated RBC (Bld) [#/Vol] 10*3/uL Normal <0.01 [facility] Comment on above: Order Comment: Speci men Type: BLOOD SPECIMENOrdering Facility: [facility] Address: [address] [place] [address] Performed By: #### 5 8410-2 ####[facility] LABIA [id number] [place] [address] [place] Platelet mean volume (Bld) [Entitic vol] 11.8 fL Normal 9.0-12.7 [facility] Comment on above: Order Comment: Speci men Type: BLOOD SPECIMENOrdering Facility: [facility] Address: [address] [place] [address] Performed By: #### 5 8410-2 ####[facility] LABIA [id number] [place] [address] [place] Platelets (Bld) [#/Vol] 142 10*3/uL Low 150-400 [facility] Comment on above: Order Comment: Speci men Type: BLOOD SPECIMENOrdering Facility: [facility] Address: [address] [place] [address] Performed By: #### 5 8410-2 ####[facility] LABCLIA [id number] [place] [id number] [place] RBC (Bld) [#/Vol] 3.81 10*6/uL Low 4.20-6.00 [facility] Comment on above: Order Comment: Speci men Type: BLOOD SPECIMENOrdering Facility: [facility] Address: [address] [place] [address] Performed By: #### 5 8410-2 ####[facility] LABIA [id number] [place] [address] [place] WBC (Bld) [#/Vol] 8.99 10*3/uL Normal 3.70-11.00 [facility] Comment on above: Order Comment: Speci men Type: BLOOD SPECIMENOrdering Facility: [facility] Address: [address] [place] [address] Performed By: #### 5 8410-2 ####[facility] [id number] [place] [id number] [place] CONSULT PROGon 11-25-2024 CONSULT PROG Normal [facility] Comprehensive metabolic 2000 panelon 11-25-2024 Albumin [Mass/Vol] 3.5 g/dL Low 3.9-4.9 [facility] Comment on above: Order Comment: Speci men Type: BLOOD SPECIMENOrdering Facility: [facility] Address: [address] [place] [address] Performed By: #### 1 9123-9, 99734-4 ####[facility] [id number] [place] [address] [place] ALP [Catalytic activity/Vol] 66 U/L Normal 38-113 [facility] Comment on above: Order Comment: Speci men Type: BLOOD SPECIMENOrdering Facility: [facility] Address: [address] [place] [address] Performed By: #### 1 9123-9, 36088-0 ####[facility] LABCLIA [id number] [facility] [address] [place] [address] [place] ALT [Catalytic activity/Vol] 37 U/L Normal 10-54 [facility] Comment on above: Order Comment: Speci men Type: BLOOD SPECIMENOrdering Facility: [facility] Address: [address] [place] [address] Performed By: #### 1 23-9, 76834-1 ####[facility] LABCLIA [id number] [facility] [address] [place] [address] [place] Anion gap [Moles/Vol] 19 mmol/L High 8-15 [facility] Comment on above: Order Comment: Speci men Type: BLOOD SPECIMENOrdering Facility: [facility] Address: [address] [place] [address] Performed By: #### 1 23-9, 32304-9 ####[facility] LABCLIA [id number] [facility] [address] [place] [address] [place] AST [Catalytic activity/Vol] 21 U/L Normal 14-40 [facility] Comment on above: Order Comment: Speci men Type: BLOOD SPECIMENOrdering Facility: [facility] Address: [address] [place], [place] [address] Performed By: #### 1 23-9, 67582-1 ####[facility] LABCLIA [id number] [facility] E[facility]K [address] [place] [address] [place] Bilirubin [Mass/Vol] 0.2 mg/dL Normal 0.2-1.3 [facility] Comment on above: Order Comment: Speci men Type: BLOOD SPECIMENOrdering Facility: [facility] Address: [address] [place], [place] [address] Performed By: #### 1 9123-9, 38906-0 ####[facility] LABCLIA [id number] [address] [place] [address] [place] Calcium [Mass/Vol] 8.9 mg/dL Normal 8.5-10.2 [facility] Comment on above: Order Comment: Speci men Type: BLOOD SPECIMENOrdering Facility: [facility] Address: [address] [place], [place] [address] Performed By: #### 1 9123-9, 39352-2 ####[facility] LABCLIA [id number] [facility] [address] [place] [address] [place] Chloride [Moles/Vol] 90 mmol/L Low 98-107 [facility] Comment on above: Order Comment: Speci men Type: BLOOD SPECIMENOrdering Facility: [facility] Address: [address] [place] [address] Performed By: #### 1 9123-9, 55215-7 ####[facility] LABCLIA [id number] [facility] E[facility]K [place] [id number] [place] CO2 [Moles/Vol] 23 mmol/L Normal 22-30 [facility] Comment on above: Order Comment: Speci men Type: BLOOD SPECIMENOrdering Facility: [facility] Address: [address] [place] [address] Performed By: #### 1 9123-9, 07517-1 ####[facility] LABCLIA [id number] [facility] [address], [facility] [place] Creatinine [Mass/Vol] 6.00 mg/dL High 0.73-1.22 [facility] Comment on above: Order Comment: Speci men Type: BLOOD SPECIMENOrdering Facility: [facility] Address: [address] [place] [address] Performed By: #### 1 9123-9, 93592-5 ####[facility] LABCLIA [id number] [facility] [address] [place] [address] [place] Creatinine and Glomerular filtration rate.predicted panel (S/P/Bld) 8 mL/min/1.73m??? Low >=60 [facility] Comment on above: Order Comment: Lesvia aleman Type: BLOOD SPECIMENOrdering Facility: [facility] Address: [address] [place] [address] Result Comment: Tessa mated Glomerular Filtration Rate [...] actual GFR. Performed By: #### 1 9123-9, 04302-4 ####[facility] [id number] [place] [address] [place] Glucose [Mass/Vol] 227 mg/dL High 74-99 [facility] Comment on above: Order Comment: Lesvia aleman Type: BLOOD SPECIMENOrdering Facility: [facility] Address: [address] [place] [address] Result Comment: The [place] [employer] (ADA) provides guidance for [...] Standards of Medical Care in Diabetes 2016, [place] [employer]. Diabetes Care. 2016.39(Suppl 1). Performed By: #### 1 9123-9, 15084-7 ####[facility] [id number] [place] [id number] [place] Potassium [Moles/Vol] 5.3 mmol/L High 3.7-5.1 [facility] Comment on above: Order Comment: Lesvia aleman Type: BLOOD SPECIMENOrdering Facility: [facility] Address: [address] [place] [address] Performed By: #### 1 9123-9, 64914-2 ####[facility] LABCLIA [id number] [address] [address] [place] Protein [Mass/Vol] 6.6 g/dL Normal 6.3-8.0 [facility] Comment on above: Order Comment: Speci men Type: BLOOD SPECIMENOrdering Facility: [facility] Address: [address] [place] [address] Performed By: #### 1 9123-9, 98273-8 ####[facility] LABCLIA [id number] [address] [address] [place] Sodium [Moles/Vol] 132 mmol/L Low 136-144 [facility] Comment on above: Order Comment: Speci men Type: BLOOD SPECIMENOrdering Facility: [facility] Address: [address] [place] [address] Performed By: #### 1 9123-9, 10999-9 ####[facility] LABIA [id number] [address] [address] [place] Urea nitrogen [Mass/Vol] 71 mg/dL High 9-24 [facility] Comment on above: Order Comment: Speci men Type: BLOOD SPECIMENOrdering Facility: [facility] Address: [address] [place] [address] Performed By: #### 1 9123-9, 66164-7 ####[facility] LABIA [id number] [address] [address] [place] Magnesium SerPl-mCncon 11-25 Magnesium [Mass/Vol] 2.5 mg/dL High 1.7-2.3 [facility] Comment on above: Order Comment: Speci men Type: BLOOD SPECIMENOrdering Facility: [facility] Address: [address] [place], [place] [address] Performed By: #### 1 9123-9, 2777-1, 76489-1 ####[facility] LABIA [id number] [place] [id number] [place] Magnesium [Mass/Vol] 2.6 mg/dL High 1.7-2.3 [facility] Comment on above: Order Comment: Speci men Type: BLOOD SPECIMENOrdering Facility: [facility] Address: [address] [place] [address] Performed By: #### 1 9123-9, 46908-7 ####[facility] LABIA [id number] [place] [id number] [place] Phosphate SerPl-mCncon 11-25 Phosphate [Mass/Vol] 9.4 mg/dL High 2.7-4.8 [facility] Comment on above: Order Comment: Speci men Type: BLOOD SPECIMENOrdering Facility: [facility] Address: [address] [place] [address] Performed By: #### 1 9123-9, 2777-1, 87454-4 ####[facility] [id number] [place] [address] [place] XR CHEST 1V FRONTAL PORTon 0 11-25-2024 XR CHEST 1V FRONTAL PORT Normal [facility] APIXABAN ASSAYon 11-24-2024 APIXABAN 36.00 ng/mL Normal [facility] Comment on above: Order Comment: Speci men Type: BLOOD SPECIMENOrdering Facility: [facility] Address: [address] [place] [address] Result Comment: APIX ABAN PEAK AND TROUGH [...] Pharmacol. 2017;6(5):340-349. Performed By: #### A PIXBN ####[facility] [id number] [place] [address] [place] ARTERIAL BLOOD GASESon 11-24 Base excess Calc (Bld) [Moles/Vol] 3 mmol/L High 0-2 [facility] Comment on above: Order Comment: Speci men Type: ARTERIAL BLOOD SPECIMENOrdering Facility: [facility] Address: [address] [place] [address] Performed By: #### A LLBG ####[facility] [id number] [address] [place] Body temperature 98.6 [degF] Normal [facility] Comment on above: Order Comment: Speci men Type: ARTERIAL BLOOD SPECIMENOrdering Facility: [facility] Address: [address] [place] [address] Performed By: #### A LLBG ####[facility] [id number] [address] [place] Calcium.ionized (Bld) [Mass/Vol] 1.11 mmol/L Normal 1.08-1.30 [facility] Comment on above: Order Comment: Speci men Type: ARTERIAL BLOOD SPECIMENOrdering Facility: [facility] Address: [address] [place] [address] Performed By: #### A LLBG ####[facility] [id number] [place] [address] [place] Calcium.ionized adjusted to pH 7.4 (BldA) [Moles/Vol] 1.11 mmol/L Normal 1.08-1.30 [facility] Comment on above: Order Comment: Speci men Type: ARTERIAL BLOOD SPECIMENOrdering Facility: [facility] Address: [address] [place] [address] Performed By: #### A LLBG ####[facility] LABCLIA [id number] [place] [address] [place] Carboxyhemoglobin (BldA) [Mass fraction] 1.2 % Normal 0.0-2.0 [facility] Comment on above: Order Comment: Speci men Type: ARTERIAL BLOOD SPECIMENOrdering Facility: [facility] Address: [address] [place] [address] Result Comment: Carb oxyhemoglobin Reference Range for Smokers: 2.0-8.0% Performed By: #### A LLBG ####[facility] LABIA [id number] [place] [address] [place] CO2 (Bld) [Partial pressure] 45 mm Hg Normal 36-46 [facility] Comment on above: Order Comment: Speci men Type: ARTERIAL BLOOD SPECIMENOrdering Facility: [facility] Address: [address] [place] [address] Performed By: #### A LLBG ####[facility] LABCLIA [id number] [place] [address] [place] Glucose [Mass/Vol] 182 mg/dL High 60-105 [facility] Comment on above: Order Comment: Speci men Type: ARTERIAL BLOOD SPECIMENOrdering Facility: [facility] Address: [address] [place] [address] Performed By: #### A LLBG ####[facility] LABIA [id number] [place] [address] [place] HCO3 (Bld) [Moles/Vol] 27 mmol/L High 22-26 [facility] Comment on above: Order Comment: Speci men Type: ARTERIAL BLOOD SPECIMENOrdering Facility: [facility] Address: [address] [place] [address] Performed By: #### A LLBG ####[facility] LABIA [id number] [address] [address] [place] Hematocrit (Bld) [Volume fraction] 34.6 % Low 39.0-51.0 [facility] Comment on above: Order Comment: Speci men Type: ARTERIAL BLOOD SPECIMENOrdering Facility: [facility] Address: [address] [place] [address] Performed By: #### A LLBG ####[facility] LABIA [id number] [place] [address] [place] Hemoglobin (Bld) [Mass/Vol] 11.2 g/dL Low 13.0-17.0 [facility] Comment on above: Order Comment: Speci men Type: ARTERIAL BLOOD SPECIMENOrdering Facility: [facility] Address: [address] [place] [address] Performed By: #### A LLBG ####[facility] LABIA [id number] [place] [address] [place] Lactate [Moles/Vol] 1.1 mmol/L Normal 0.5-2.2 [facility] Comment on above: Order Comment: Speci men Type: ARTERIAL BLOOD SPECIMENOrdering Facility: [facility] Address: [address] [place] [address] Performed By: #### A LLBG ####[facility] LABIA [id number] [place] [address] [place] Methemoglobin (Bld) [Mass fraction] 1.3 % Normal 0.0-1.5 [facility] Comment on above: Order Comment: Speci men Type: ARTERIAL BLOOD SPECIMENOrdering Facility: [facility] Address: [address] [place] [address] Performed By: #### A LLBG ####[facility] LABCLIA [id number] [place] [address] [place] O2 THERAPY RA=Room Air Normal [facility] Comment on above: Order Comment: Speci men Type: ARTERIAL BLOOD SPECIMENOrdering Facility: [facility] Address: [address] [place] [address] Performed By: #### A LLBG ####[facility] LABCLIA [id number] [place] [id number] [place] Oxygen (Bld) [Partial pressure] 78 mm Hg Low 85-95 [facility] Comment on above: Order Comment: Speci men Type: ARTERIAL BLOOD SPECIMENOrdering Facility: [facility] Address: [address] [place] [address] Performed By: #### A LLBG ####[facility] LABCLIA [id number] [address] [place] Oxyhemoglobin (BldA) [Mass fraction] 92 % Low 95-98 [facility] Comment on above: Order Comment: Speci men Type: ARTERIAL BLOOD SPECIMENOrdering Facility: [facility] Address: [address] [place] [address] Performed By: #### A LLBG ####[facility] LABCLIA [id number] [place] [address] [place] pH (Bld) 7.40 [pH] Normal 7.35-7.45 [facility] Comment on above: Order Comment: Speci men Type: ARTERIAL BLOOD SPECIMENOrdering Facility: [facility] Address: [address] [place] [address] Performed By: #### A LLBG ####[facility] LABCLIA [id number] [place] [id number] [place] PO2 / FIO2 RATIO 371 mmHg Normal >300 [facility] Comment on above: Order Comment: Speci men Type: ARTERIAL BLOOD SPECIMENOrdering Facility: [facility] Address: [address] [place] [address] Performed By: #### A LLBG ####[facility] LABCLIA [id number] [place] [address] [place] Potassium [Moles/Vol] 5.0 mmol/L Normal 3.5-5.0 [facility] Comment on above: Order Comment: Speci men Type: ARTERIAL BLOOD SPECIMENOrdering Facility: [facility] Address: [address] [place] [address] Performed By: #### A LLBG ####[facility] LABCLIA [id number] [place] [address] [place] Sodium [Moles/Vol] 132 mmol/L Low 136-144 [facility] Comment on above: Order Comment: Speci men Type: ARTERIAL BLOOD SPECIMENOrdering Facility: [facility] Address: [address] [place] [address] Performed By: #### A LLBG ####[facility] LABCLIA [id number] [place] [address] [place] Base excess Calc (Bld) [Moles/Vol] 5 mmol/L High 0-2 [facility] Comment on above: Order Comment: Speci men Type: ARTERIAL BLOOD SPECIMENOrdering Facility: [facility] Address: [address] [place] [place] [address] Performed By: #### A LLBG ####[facility] LABCLIA [id number] [place] [id number] [place] Body temperature 98.24 [degF] Normal [facility] Comment on above: Order Comment: Speci men Type: ARTERIAL BLOOD SPECIMENOrdering Facility: [facility] Address: [address] [place] [address] Performed By: #### A LLBG ####[facility] LABCLIA [id number] [address] [place] Calcium.ionized (Bld) [Mass/Vol] 1.13 mmol/L Normal 1.08-1.30 [facility] Comment on above: Order Comment: Speci men Type: ARTERIAL BLOOD SPECIMENOrdering Facility: [facility] Address: [address] [place] [address] Performed By: #### A LLBG ####[facility] LABCLIA [id number] [address] [place] Calcium.ionized adjusted to pH 7.4 (BldA) [Moles/Vol] 1.15 mmol/L Normal 1.08-1.30 [facility] Comment on above: Order Comment: Speci men Type: ARTERIAL BLOOD SPECIMENOrdering Facility: [facility] Address: [address] [place] [address] Performed By: #### A LLBG ####[facility] LABCLIA [id number] [address] STATES OF [facility] Carboxyhemoglobin (BldA) [Mass fraction] 0.6 % Normal 0.0-2.0 [facility] Comment on above: Order Comment: Speci men Type: ARTERIAL BLOOD SPECIMENOrdering Facility: [facility] Address: [address] [place] [address] Result Comment: Carb oxyhemoglobin Reference Range for Smokers: 2.0-8.0% Performed By: #### A LLBG ####[facility] LABCLIA [id number] [address] [place] CO2 (Bld) [Partial pressure] 45 mm Hg Normal 36-46 [facility] Comment on above: Order Comment: Speci men Type: ARTERIAL BLOOD SPECIMENOrdering Facility: [facility] Address: [address] [place] [address] Performed By: #### A LLBG ####[facility] LABCLIA [id number] [place] [address] [place] CO2 adjusted to patient's actual temperature (Bld) [Partial pressure] 44 mmHg Normal 36-46 [facility] Comment on above: Order Comment: Speci men Type: ARTERIAL BLOOD SPECIMENOrdering Facility: [facility] Address: [facility] [place] [address] Performed By: #### A LLBG ####[facility] LABCLIA [id number] [place] [id number] [place] Glucose [Mass/Vol] 73 mg/dL Normal 60-105 [facility] Comment on above: Order Comment: Speci men Type: ARTERIAL BLOOD SPECIMENOrdering Facility: [facility] Address: [address] [place] [address] Performed By: #### A LLBG ####[facility] LABCLIA [id number] [place] [id number] [place] HCO3 (Bld) [Moles/Vol] 29 mmol/L High 22-26 [facility] Comment on above: Order Comment: Speci men Type: ARTERIAL BLOOD SPECIMENOrdering Facility: [facility] Address: [address] [place] [address] Performed By: #### A LLBG ####[facility] LABCLIA [id number] [place] [address] [place] Hematocrit (Bld) [Volume fraction] 34.8 % Low 39.0-51.0 [facility] Comment on above: Order Comment: Speci men Type: ARTERIAL BLOOD SPECIMENOrdering Facility: [facility] Address: [address] [place] [address] Performed By: #### A LLBG ####[facility] LABCLIA [id number] [place] [id number] [place] Hemoglobin (Bld) [Mass/Vol] 11.3 g/dL Low 13.0-17.0 [facility] Comment on above: Order Comment: Speci men Type: ARTERIAL BLOOD SPECIMENOrdering Facility: [facility] Address: [address], [place] [address] Performed By: #### A LLBG ####[facility] LABCLIA [id number] [address] [address] [place] Lactate [Moles/Vol] 0.9 mmol/L Normal 0.5-2.2 [facility] Comment on above: Order Comment: Speci men Type: ARTERIAL BLOOD SPECIMENOrdering Facility: [facility] Address: [address] [place] [address] Performed By: #### A LLBG ####[facility] LABCLIA [id number] [place] [id number] [place] Methemoglobin (Bld) [Mass fraction] 0.5 % Normal 0.0-1.5 [facility] Comment on above: Order Comment: Speci men Type: ARTERIAL BLOOD SPECIMENOrdering Facility: [facility] Address: [address] [place] [address] Performed By: #### A LLBG ####[facility] LABCLIA [id number] [place] [id number] [place] O2 THERAPY RA=Room Air Normal [facility] Comment on above: Order Comment: Speci men Type: ARTERIAL BLOOD SPECIMENOrdering Facility: [facility] Address: [address] [place], [place] [address] Performed By: #### A LLBG ####[facility] LABCLIA [id number] [address] [address] [place] Oxygen (Bld) [Partial pressure] 98 mm Hg High 85-95 [facility] Comment on above: Order Comment: Speci men Type: ARTERIAL BLOOD SPECIMENOrdering Facility: [facility] Address: [address] [place], [place] [address] Performed By: #### A LLBG ####[facility] LABCLIA [id number] [address] [address] [place] Oxygen adjusted to patient's actual temperature (Bld) [Partial pressure] 97 mmHg High 85-95 [facility] Comment on above: Order Comment: Speci men Type: ARTERIAL BLOOD SPECIMENOrdering Facility: [facility] Address: [address] [place] [address] Performed By: #### A LLBG ####[facility] LABCLIA [id number] [address] [address] [place] Oxyhemoglobin (BldA) [Mass fraction] 95 % Normal 95-98 [facility] Comment on above: Order Comment: Speci men Type: ARTERIAL BLOOD SPECIMENOrdering Facility: [facility] Address: [address] [place] [address] Performed By: #### A LLBG ####[facility] LABCLIA [id number] [place] [id number] [place] pH (Bld) 7.43 [pH] Normal 7.35-7.45 [facility] Comment on above: Order Comment: Speci men Type: ARTERIAL BLOOD SPECIMENOrdering Facility: [facility] Address: [address] [place] [address] Performed By: #### A LLBG ####[facility] LABCLIA [id number] [place] [id number] [place] pH adjusted to patient's actual temperature (Bld) 7.44 Normal 7.35-7.45 [facility] Comment on above: Order Comment: Speci men Type: ARTERIAL BLOOD SPECIMENOrdering Facility: [facility] Address: [address] [place] [address] Performed By: #### A LLBG ####[facility] LABCLIA [id number] [place] [id number] [place] PO2 / FIO2 RATIO 467 mmHg Normal >300 [facility] Comment on above: Order Comment: Speci men Type: ARTERIAL BLOOD SPECIMENOrdering Facility: [facility] Address: [address] [place], [place] [address] Performed By: #### A LLBG ####[facility] LABCLIA [id number] [place] [id number] [place] Potassium [Moles/Vol] 4.5 mmol/L Normal 3.5-5.0 [facility] Comment on above: Order Comment: Speci men Type: ARTERIAL BLOOD SPECIMENOrdering Facility: [facility] Address: [address] [place] [address] Performed By: #### A LLBG ####[facility] LABCLIA [id number] [place] [address] [place] Sodium [Moles/Vol] 135 mmol/L Low 136-144 [facility] Comment on above: Order Comment: Speci men Type: ARTERIAL BLOOD SPECIMENOrdering Facility: [facility] Address: [address] [place] [address] Performed By: #### A LLBG ####[facility] LABCLIA [id number] [place] [address] [place] Base excess Calc (Bld) [Moles/Vol] 4 mmol/L High 0-2 [facility] Comment on above: Order Comment: Speci men Type: ARTERIAL BLOOD SPECIMENOrdering Facility: [facility] Address: [address] [place] [address] Performed By: #### A LLBG ####[facility] LABIA [id number] [place] [address] [place] Body temperature 98.6 [degF] Normal [facility] Comment on above: Order Comment: Speci men Type: ARTERIAL BLOOD SPECIMENOrdering Facility: [facility] Address: [address] [place] [address] Performed By: #### A LLBG ####[facility] LABIA [id number] [place] [address] [place] Calcium.ionized (Bld) [Mass/Vol] 1.12 mmol/L Normal 1.08-1.30 [facility] Comment on above: Order Comment: Speci men Type: ARTERIAL BLOOD SPECIMENOrdering Facility: [facility] Address: [address] [place] [address] Performed By: #### A LLBG ####[facility] LABIA [id number] [place] [address] [place] Calcium.ionized adjusted to pH 7.4 (BldA) [Moles/Vol] 1.15 mmol/L Normal 1.08-1.30 [facility] Comment on above: Order Comment: Speci men Type: ARTERIAL BLOOD SPECIMENOrdering Facility: [facility] Address: [address] [place] [address] Performed By: #### A LLBG ####[facility] LABIA [id number] [place] [address] [place] Carboxyhemoglobin (BldA) [Mass fraction] 1.0 % Normal 0.0-2.0 [facility] Comment on above: Order Comment: Speci men Type: ARTERIAL BLOOD SPECIMENOrdering Facility: [facility] Address: [address] [place] [address] Result Comment: Carb oxyhemoglobin Reference Range for Smokers: 2.0-8.0% Performed By: #### A LLBG ####[facility] LABIA [id number] [place] [address] [place] CO2 (Bld) [Partial pressure] 43 mm Hg Normal 36-46 [facility] Comment on above: Order Comment: Speci men Type: ARTERIAL BLOOD SPECIMENOrdering Facility: [facility] Address: [address] [place] [address] Performed By: #### A LLBG ####[facility] LABIA [id number] [place] [id number] [place] Glucose [Mass/Vol] 83 mg/dL Normal 60-105 [facility] Comment on above: Order Comment: Speci men Type: ARTERIAL BLOOD SPECIMENOrdering Facility: [facility] Address: [address] [place] [address] Performed By: #### A LLBG ####[facility] LABCLIA [id number] [place] [address] [place] HCO3 (Bld) [Moles/Vol] 29 mmol/L High 22-26 [facility] Comment on above: Order Comment: Speci men Type: ARTERIAL BLOOD SPECIMENOrdering Facility: [facility] Address: [address] [place] [address] Performed By: #### A LLBG ####[facility] LABCLIA [id number] [place] [address] [place] Hematocrit (Bld) [Volume fraction] 33.1 % Low 39.0-51.0 [facility] Comment on above: Order Comment: Speci men Type: ARTERIAL BLOOD SPECIMENOrdering Facility: [facility] Address: [address] [place] [address] Performed By: #### A LLBG ####[facility] LABCLIA [id number] [place] [address] [place] Hemoglobin (Bld) [Mass/Vol] 10.7 g/dL Low 13.0-17.0 [facility] Comment on above: Order Comment: Speci men Type: ARTERIAL BLOOD SPECIMENOrdering Facility: [facility] Address: [address] [place] [address] Performed By: #### A LLBG ####[facility] LABCLIA [id number] [place] [address] [place] Lactate [Moles/Vol] 0.8 mmol/L Normal 0.5-2.2 [facility] Comment on above: Order Comment: Speci men Type: ARTERIAL BLOOD SPECIMENOrdering Facility: [facility] Address: [address] [place] [address] Performed By: #### A LLBG ####[facility] LABCLIA [id number] [address] [id number] [address] [place] Methemoglobin (Bld) [Mass fraction] 1.6 % High 0.0-1.5 [facility] Comment on above: Order Comment: Speci men Type: ARTERIAL BLOOD SPECIMENOrdering Facility: [facility] Address: [address] [place] [address] Performed By: #### A LLBG ####[facility] LABCLIA [id number] [place] [address] [place] O2 THERAPY RA=Room Air Normal [facility] Comment on above: Order Comment: Speci men Type: ARTERIAL BLOOD SPECIMENOrdering Facility: [facility] Address: [address] [place] [address] Performed By: #### A LLBG ####[facility] LABCLIA [id number] [place] [address] [place] Oxygen (Bld) [Partial pressure] 94 mm Hg Normal 85-95 [facility] Comment on above: Order Comment: Speci men Type: ARTERIAL BLOOD SPECIMENOrdering Facility: [facility] Address: [address] [place] [address] Performed By: #### A LLBG ####[facility] LABCLIA [id number] [place] [address] [place] Oxyhemoglobin (BldA) [Mass fraction] 94 % Low 95-98 [facility] Comment on above: Order Comment: Speci men Type: ARTERIAL BLOOD SPECIMENOrdering Facility: [facility] Address: [address] [place] [address] Performed By: #### A LLBG ####[facility] LABCLIA [id number] [place] [id number] [place] pH (Bld) 7.44 [pH] Normal 7.35-7.45 [facility] Comment on above: Order Comment: Speci men Type: ARTERIAL BLOOD SPECIMENOrdering Facility: [facility] Address: [address] [place] [address] Performed By: #### A LLBG ####[facility] LABCLIA [id number] [address] [address] [place] PO2 / FIO2 RATIO 448 mmHg Normal >300 [facility] Comment on above: Order Comment: Speci men Type: ARTERIAL BLOOD SPECIMENOrdering Facility: [facility] Address: [address] [place] [address] Performed By: #### A LLBG ####[facility] LABCLIA [id number] [place] [address] [place] Potassium [Moles/Vol] 4.3 mmol/L Normal 3.5-5.0 [facility] Comment on above: Order Comment: Speci men Type: ARTERIAL BLOOD SPECIMENOrdering Facility: [facility] Address: [address] [place] [address] Performed By: #### A LLBG ####[facility] LABCLIA [id number] [place] [address] [place] Sodium [Moles/Vol] 134 mmol/L Low 136-144 [facility] Comment on above: Order Comment: Speci men Type: ARTERIAL BLOOD SPECIMENOrdering Facility: [facility] Address: [address] [place] [address] Performed By: #### A LLBG ####[facility] LABCLIA [id number] [place] [address] [place] Base excess Calc (Bld) [Moles/Vol] 5 mmol/L High 0-2 [facility] Comment on above: Order Comment: Speci men Type: ARTERIAL BLOOD SPECIMENOrdering Facility: [facility] Address: [address] [place] [address] Performed By: #### A LLBG ####[facility] LABCLIA [id number] [place] [id number] [place] Body temperature 98.6 [degF] Normal [facility] Comment on above: Order Comment: Speci men Type: ARTERIAL BLOOD SPECIMENOrdering Facility: [facility] Address: [address] [place] [address] Performed By: #### A LLBG ####[facility] [id number] [place] [address] [place] Calcium.ionized (Bld) [Mass/Vol] 1.15 mmol/L Normal 1.08-1.30 [facility] Comment on above: Order Comment: Speci men Type: ARTERIAL BLOOD SPECIMENOrdering Facility: [facility] Address: [address] [place] [address] Performed By: #### A LLBG ####[facility] [id number] [place] [address] [place] Calcium.ionized adjusted to pH 7.4 (BldA) [Moles/Vol] 1.19 mmol/L Normal 1.08-1.30 [facility] Comment on above: Order Comment: Speci men Type: ARTERIAL BLOOD SPECIMENOrdering Facility: [facility] Address: [address] [place] [address] Performed By: #### A LLBG ####[facility] [id number] [place] [address] [place] Carboxyhemoglobin (BldA) [Mass fraction] 0.2 % Normal 0.0-2.0 [facility] Comment on above: Order Comment: Speci men Type: ARTERIAL BLOOD SPECIMENOrdering Facility: [facility] Address: [address] [place] [address] Result Comment: Carb oxyhemoglobin Reference Range for Smokers: 2.0-8.0% Performed By: #### A LLBG ####[facility] [id number] [place] [address] [place] CO2 (Bld) [Partial pressure] 40 mm Hg Normal 36-46 [facility] Comment on above: Order Comment: Speci men Type: ARTERIAL BLOOD SPECIMENOrdering Facility: [facility] Address: [address] [place] [address] Performed By: #### A LLBG ####[facility] LABCLIA [id number] [place] [address] [place] Glucose [Mass/Vol] 121 mg/dL High 60-105 [facility] Comment on above: Order Comment: Speci men Type: ARTERIAL BLOOD SPECIMENOrdering Facility: [facility] Address: [address] [place] [address] Performed By: #### A LLBG ####[facility] LABCLIA [id number] [place] [address] [place] HCO3 (Bld) [Moles/Vol] 28 mmol/L High 22-26 [facility] Comment on above: Order Comment: Speci men Type: ARTERIAL BLOOD SPECIMENOrdering Facility: [facility] Address: [address] [place] [address] Performed By: #### A LLBG ####[facility] LABCLIA [id number] [place] [address] [place] Hematocrit (Bld) [Volume fraction] 33.3 % Low 39.0-51.0 [facility] Comment on above: Order Comment: Speci men Type: ARTERIAL BLOOD SPECIMENOrdering Facility: [facility] Address: [address] [place] [address] Performed By: #### A LLBG ####[facility] LABCLIA [id number] [place] [id number] [place] Hemoglobin (Bld) [Mass/Vol] 10.8 g/dL Low 13.0-17.0 [facility] Comment on above: Order Comment: Speci men Type: ARTERIAL BLOOD SPECIMENOrdering Facility: [facility] Address: [address] [place] [address] Performed By: #### A LLBG ####[facility] LABCLIA [id number] [place] [address] [place] Lactate [Moles/Vol] 1.5 mmol/L Normal 0.5-2.2 [facility] Comment on above: Order Comment: Speci men Type: ARTERIAL BLOOD SPECIMENOrdering Facility: [facility] Address: [address] [place] [address] Performed By: #### A LLBG ####[facility] LABCLIA [id number] [place] [address] [place] Methemoglobin (Bld) [Mass fraction] 0.4 % Normal 0.0-1.5 [facility] Comment on above: Order Comment: Speci men Type: ARTERIAL BLOOD SPECIMENOrdering Facility: [facility] Address: [address] [place] [address] Performed By: #### A LLBG ####[facility] LABCLIA [id number] [place] [address] [place] O2 THERAPY RA=Room Air Normal [facility] Comment on above: Order Comment: Speci men Type: ARTERIAL BLOOD SPECIMENOrdering Facility: [facility] Address: [address] [place] [address] Performed By: #### A LLBG ####[facility] LABCLIA [id number] [place] [address] [place] Oxygen (Bld) [Partial pressure] 119 mm Hg High 85-95 [facility] Comment on above: Order Comment: Speci men Type: ARTERIAL BLOOD SPECIMENOrdering Facility: [facility] Address: [address] [place], [place] [address] Performed By: #### A LLBG ####[facility] LABCLIA [id number] [place] [id number] [place] Oxyhemoglobin (BldA) [Mass fraction] 97 % Normal 95-98 [facility] Comment on above: Order Comment: Speci men Type: ARTERIAL BLOOD SPECIMENOrdering Facility: [facility] Address: [address] [place] [address] Performed By: #### A LLBG ####[facility] LABCLIA [id number] [address] [address] [place] pH (Bld) 7.47 [pH] High 7.35-7.45 [facility] Comment on above: Order Comment: Speci men Type: ARTERIAL BLOOD SPECIMENOrdering Facility: [facility] Address: [address] [place] [address] Performed By: #### A LLBG ####[facility] LABCLIA [id number] [address] [address] [place] PO2 / FIO2 RATIO 567 mmHg Normal >300 [facility] Comment on above: Order Comment: Speci men Type: ARTERIAL BLOOD SPECIMENOrdering Facility: [facility] Address: [address] [place] [address] Performed By: #### A LLBG ####[facility] LABCLIA [id number] [place] [id number] [place] Potassium [Moles/Vol] 4.0 mmol/L Normal 3.5-5.0 [facility] Comment on above: Order Comment: Speci men Type: ARTERIAL BLOOD SPECIMENOrdering Facility: [facility] Address: [address] [place] [address] Performed By: #### A LLBG ####[facility] LABCLIA [id number] [place] [id number] [place] Sodium [Moles/Vol] 134 mmol/L Low 136-144 [facility] Comment on above: Order Comment: Speci men Type: ARTERIAL BLOOD SPECIMENOrdering Facility: [facility] Address: [address] [place] [address] Performed By: #### A LLBG ####[facility] LABCLIA [id number] [address] [address] [place] Basic Metabolic Profile (BMP )on 11-24-2024 BUN Normal 4-19 [facility] Comment on above: Result Comment: Canc elled via OM: MD Ordered Performed By: #### L 500.2500, L100.0100 ####[facility] [id number] [place], [address] BUN/CRE Normal 10-20 [facility] Comment on above: Result Comment: Canc elled via OM: MD Ordered Performed By: #### L 500.2500, L100.0100 ####[facility] [address] [place], [address] Calcium Normal 7.6-11.0 [facility] Comment on above: Result Comment: Canc elled via OM: MD Ordered Performed By: #### L 500.2500, L100.0100 ####[facility] [address] [place], [address] CL Normal 98-108 [facility] Comment on above: Result Comment: Canc elled via OM: MD Ordered Performed By: #### L 500.2500, L100.0100 ####[facility] [id number] [place], [address] CO2 Normal 21.0-32.0 [facility] Comment on above: Result Comment: Canc elled via OM: MD Ordered Performed By: #### L 500.2500, L100.0100 ####[facility] [address] [place], [address] CREAT,SERUM Normal 0.70-1.20 [facility] Comment on above: Result Comment: Canc elled via OM: MD Ordered Performed By: #### L 500.2500, L100.0100 ####[facility] [address] [place], [address] eGFR Normal >60 [facility] Comment on above: Result Comment: Canc elled via OM: MD Ordered Performed By: #### L 500.2500, L100.0100 ####[facility] [address] [place], [address] GAP Normal 5-15 [facility] Comment on above: Result Comment: Canc elled via OM: MD Ordered Performed By: #### L 500.2500, L100.0100 ####[facility] [address] [place], [address] GLU Normal 70-99 [facility] Comment on above: Result Comment: Canc elled via OM: MD Ordered Performed By: #### L 500.2500, L100.0100 ####[facility] [address] [place], [address] Potassium Normal 3.3-5.1 [facility] Comment on above: Result Comment: Canc elled via OM: MD Ordered Performed By: #### L 500.2500, L100.0100 ####[facility] [address] [place], [address] Basic Metabolic Profile (BMP) Normal 133-145 [facility] Comment on above: Result Comment: Canc elled via OM: MD Ordered Performed By: #### L 500.2500, L100.0100 ####[facility] [address] [place], [address] CBC W/Diff, Automatedon 07-0 5-2025 Absolute Neut Normal 2.0-7.7 [facility] Comment on above: Result Comment: Canc elled via OM: MD Ordered Performed By: #### L 500.2500, L100.0100 ####[facility] [address] [place], [address] HCT Normal 40-54 [facility] Comment on above: Result Comment: Canc elled via OM: MD Ordered Performed By: #### L 500.2500, L100.0100 ####[facility] [address] [place], [address] HGB Normal 13.0-16.5 [facility] Comment on above: Result Comment: Canc elled via OM: MD Ordered Performed By: #### L 500.2500, L100.0100 ####[facility] [address] [place], [address] MCH Normal 27.0-32.0 [facility] Comment on above: Result Comment: Canc elled via OM: MD Ordered Performed By: #### L 500.2500, L100.0100 ####[facility] [address] [place], [address] MCHC Normal 32-36 [facility] Comment on above: Result Comment: Canc elled via OM: MD Ordered Performed By: #### L 500.2500, L100.0100 ####[facility] [address] [place], [address] MCV Normal 80-94 [facility] Comment on above: Result Comment: Canc elled via OM: MD Ordered Performed By: #### L 500.2500, L100.0100 ####[facility] [address] [place], [address] NEUT% Normal 47-70 [facility] Comment on above: Result Comment: Canc elled via OM: MD Ordered Performed By: #### L 500.2500, L100.0100 ####[facility] [address] [place], [address] PLT Normal 150-450 [facility] Comment on above: Result Comment: Canc elled via OM: MD Ordered Performed By: #### L 500.2500, L100.0100 ####[facility] [address] [place], [address] RBC Normal 4.6-6.2 [facility] Comment on above: Result Comment: Canc elled via OM: MD Ordered Performed By: #### L 500.2500, L100.0100 ####[facility] [address] [place], [address] RDW CV Normal 11.6-14.6 [facility] Comment on above: Result Comment: Canc elled via OM: MD Ordered Performed By: #### L 500.2500, L100.0100 ####[facility] [address] [place], [address] RDW SD Normal 35.1-43.9 [facility] Comment on above: Result Comment: Canc elled via OM: MD Ordered Performed By: #### L 500.2500, L100.0100 ####[facility] [address] [place], [address] WBC Normal 4.4-11.0 [facility] Comment on above: Result Comment: Canc elled via OM: MD Ordered Performed By: #### L 500.2500, L100.0100 ####[facility] [address] [place], [address] CBC panel Auto (Bld)on 11-24 Erythrocyte distribution width (RBC) [Ratio] 15.7 % High 11.5-15.0 [facility] Comment on above: Order Comment: Speci men Type: BLOOD SPECIMENOrdering Facility: [facility] Address: [address] [place], [place] [address] Performed By: #### 5 8410-2 ####[facility] LABCLIA [id number] [place] [address] [place] Hematocrit (Bld) [Volume fraction] 32.8 % Low 39.0-51.0 [facility] Comment on above: Order Comment: Speci men Type: BLOOD SPECIMENOrdering Facility: [facility] Address: [address] [place] [address] Performed By: #### 5 8410-2 ####[facility] LABCLIA [id number] [address] [address] [place] Hemoglobin (Bld) [Mass/Vol] 10.8 g/dL Low 13.0-17.0 [facility] Comment on above: Order Comment: Speci men Type: BLOOD SPECIMENOrdering Facility: [facility] Address: [address] [place] [address] Performed By: #### 5 8410-2 ####[facility] LABIA [id number] [place] [address] [place] MCH (RBC) [Entitic mass] 28.5 pg Normal 26.0-34.0 [facility] Comment on above: Order Comment: Speci men Type: BLOOD SPECIMENOrdering Facility: [facility] Address: [address] [place] [address] Performed By: #### 5 8410-2 ####[facility] LABIA [id number] [place] [address] [place] MCHC (RBC) [Mass/Vol] 32.9 g/dL Normal 30.5-36.0 [facility] Comment on above: Order Comment: Speci men Type: BLOOD SPECIMENOrdering Facility: [facility] Address: [address] [place] [address] Performed By: #### 5 8410-2 ####[facility] [id number] [place] [address] [place] MCV (RBC) [Entitic vol] 86.5 fL Normal 80.0-100.0 [facility] Comment on above: Order Comment: Speci men Type: BLOOD SPECIMENOrdering Facility: [facility] Address: [address] [address] Performed By: #### 5 8410-2 ####[facility] LABIA [id number] [place] [address] [place] Nucleated RBC (Bld) [#/Vol] 10*3/uL Normal <0.01 [facility] Comment on above: Order Comment: Speci men Type: BLOOD SPECIMENOrdering Facility: [facility] Address: [address] [place] [address] Performed By: #### 5 8410-2 ####[facility] LABCLIA [id number] [place] [id number] [place] Platelet mean volume (Bld) [Entitic vol] 11.5 fL Normal 9.0-12.7 [facility] Comment on above: Order Comment: Speci men Type: BLOOD SPECIMENOrdering Facility: [facility] Address: [address] [place] [address] Performed By: #### 5 8410-2 ####[facility] LABCLIA [id number] [place] [address] [place] Platelets (Bld) [#/Vol] 152 10*3/uL Normal 150-400 [facility] Comment on above: Order Comment: Speci men Type: BLOOD SPECIMENOrdering Facility: [facility] Address: [address] [place] [address] Performed By: #### 5 8410-2 ####[facility] LABCLIA [id number] [place] [address] [place] RBC (Bld) [#/Vol] 3.79 10*6/uL Low 4.20-6.00 [facility] Comment on above: Order Comment: Speci men Type: BLOOD SPECIMENOrdering Facility: [facility] Address: [address] [place] [address] Performed By: #### 5 8410-2 ####[facility] LABCLIA [id number] [place] [id number] [place] WBC (Bld) [#/Vol] 8.79 10*3/uL Normal 3.70-11.00 [facility] Comment on above: Order Comment: Speci men Type: BLOOD SPECIMENOrdering Facility: [facility] Address: [address] [place] [address] Performed By: #### 5 8410-2 ####[facility] LABCLIA [id number] [address] [place] [address] [place] Comprehensive metabolic 2000 panelon 11-24-2024 Albumin [Mass/Vol] 3.3 g/dL Low 3.9-4.9 [facility] Comment on above: Order Comment: Speci men Type: BLOOD SPECIMENOrdering Facility: [facility] Address: [address] [place] [address] Performed By: #### 1 9123-9, 82939-9, 2777-1 ####[facility] LABCLIA [id number] [place] [id number] [place] ALP [Catalytic activity/Vol] 64 U/L Normal 38-113 [facility] Comment on above: Order Comment: Speci men Type: BLOOD SPECIMENOrdering Facility: [facility] Address: [address] [place] [address] Performed By: #### 1 9123-9, 08244-6, 2777-1 ####[facility] LABCLIA [id number] [place] [address] [place] ALT [Catalytic activity/Vol] 35 U/L Normal 10-54 [facility] Comment on above: Order Comment: Speci men Type: BLOOD SPECIMENOrdering Facility: [facility] Address: [address] [place] [address] Performed By: #### 1 9123-9, 67187-3, 2777-1 ####[facility] LABCLIA [id number] [place] [id number] [place] Anion gap [Moles/Vol] 16 mmol/L High 8-15 [facility] Comment on above: Order Comment: Speci men Type: BLOOD SPECIMENOrdering Facility: [facility] Address: [address] [place] [address] Performed By: #### 1 9123-9, 38057-4, 2777-1 ####[facility] LABCLIA [id number] [address] [address] [place] AST [Catalytic activity/Vol] 14 U/L Normal 14-40 [facility] Comment on above: Order Comment: Speci men Type: BLOOD SPECIMENOrdering Facility: [facility] Address: [address] [place] [address] Performed By: #### 1 9123-9, 91331-9, 2777-1 ####[facility] LABCLIA [id number] [place] [address] [place] Bilirubin [Mass/Vol] 0.2 mg/dL Normal 0.2-1.3 [facility] Comment on above: Order Comment: Speci men Type: BLOOD SPECIMENOrdering Facility: [facility] Address: [address] [place] [address] Performed By: #### 1 9123-9, 93689-5, 2777- ####[facility] LABCLIA [id number] [place] [address] [place] Calcium [Mass/Vol] 9.1 mg/dL Normal 8.5-10.2 [facility] Comment on above: Order Comment: Speci men Type: BLOOD SPECIMENOrdering Facility: [facility] Address: [address] [place] [address] Performed By: #### 1 9123-9, 02630-7, 2777- ####[facility] LABCLIA [id number] [place] [address] [place] Chloride [Moles/Vol] 93 mmol/L Low 98-107 [facility] Comment on above: Order Comment: Speci men Type: BLOOD SPECIMENOrdering Facility: [facility] Address: [address] [place] [address] Performed By: #### 1 9123-9, 81985-7, 2777-1 ####[facility] LABCLIA [id number] [place] [id number] [place] CO2 [Moles/Vol] 27 mmol/L Normal 22-30 [facility] Comment on above: Order Comment: Speci men Type: BLOOD SPECIMENOrdering Facility: [facility] Address: [address] [place] [address] Performed By: #### 1 9123-9, 82073-7, 2776-05 ####[facility] LABCLIA [id number] [place] [id number] [place] Creatinine [Mass/Vol] 4.46 mg/dL High 0.73-1.22 [facility] Comment on above: Order Comment: Speci men Type: BLOOD SPECIMENOrdering Facility: [facility] Address: [address] [place] [address] Performed By: #### 1 239, , 2776-05 ####[facility] LABCLIA [id number] [place] [address] [place] Creatinine and Glomerular filtration rate.predicted panel (S/P/Bld) 12 mL/min/1.73m??? Low >=60 [facility] Comment on above: Order Comment: Speci men Type: BLOOD SPECIMENOrdering Facility: [facility] Address: [address] [place] [address] Result Comment: Tessa mated Glomerular Filtration Rate [...] actual GFR. Performed By: #### 1 9123-9, 15929-3, 2776-05 ####[facility] LABCLIA [id number] [place] [id number] [place] Glucose [Mass/Vol] 118 mg/dL High 74-99 [facility] Comment on above: Order Comment: Speci men Type: BLOOD SPECIMENOrdering Facility: [facility] Address: [address] [place] [address] [place] [address] Result Comment: The [place] [employer] (ADA) provides guidance for [...] Standards of Medical Care in Diabetes 2016, [place] [employer]. Diabetes Care. 2016.39(Suppl 1). Performed By: #### 1 9123-9, 34170-9, 2776-05 ####[facility] LABCLIA [id number] [place] [address] [place] Potassium [Moles/Vol] 4.2 mmol/L Normal 3.7-5.1 [facility] Comment on above: Order Comment: Speci men Type: BLOOD SPECIMENOrdering Facility: [facility] Address: [address] [place] [address] Performed By: #### 1 9123-9, 88140-7, 2776-05 ####[facility] LABIA [id number] [place] [id number] [place] Protein [Mass/Vol] 6.2 g/dL Low 6.3-8.0 [facility] Comment on above: Order Comment: Speci men Type: BLOOD SPECIMENOrdering Facility: [facility] Address: [address] [place] [address] Performed By: #### 1 9123-9, 34203-2, 2776-05 ####[facility] LABIA [id number] [address] [address] [place] Sodium [Moles/Vol] 136 mmol/L Normal 136-144 [facility] Comment on above: Order Comment: Speci men Type: BLOOD SPECIMENOrdering Facility: [facility] Address: [address] [place], [place] [address] Performed By: #### 1 9123-9, 05653-8, 2777-1 ####[facility] LABCLIA [id number] [address] [address] [place] Urea nitrogen [Mass/Vol] 49 mg/dL High 9-24 [facility] Comment on above: Order Comment: Speci men Type: BLOOD SPECIMENOrdering Facility: [facility] Address: [address] [place] [address] Performed By: #### 1 9123-9, 47222-4, 2777-1 ####[facility] LABIA [id number] [place] [id number] [place] Gas and Carbon monoxide pane l (BldV)on 11-24-2024 BASE DEFICIT, VENOUS Normal [facility] Comment on above: Order Comment: Speci men Type: VENOUS BLOOD SPECIMENOrdering Facility: [facility] Address: [address] [place] [address] Result Comment: Vj brown RN Canceled by Clinician Performed By: #### 2 4344-4 ####[facility] LABIA [id number] [place] [address] [place] Base excess Calc (BldV) [Moles/Vol] Normal 0-2 [facility] Comment on above: Order Comment: Speci men Type: VENOUS BLOOD SPECIMENOrdering Facility: [facility] Address: [address] [place], [place] [address] Result Comment: Vj brown RN Canceled by ClinicianCorrected result: Previously reported as 4 mmol/L on 11/24/2024 at 7:44 AM EDT. Performed By: #### 2 4344-4 ####[facility] LABCLIA [id number] [address] [place] [address] [place] Calcium.ionized (Bld) [Mass/Vol] Normal 1.08-1.30 [facility] Comment on above: Order Comment: Speci men Type: VENOUS BLOOD SPECIMENOrdering Facility: [facility] Address: [address] [place] [address] Result Comment: Vj brown RN Canceled by ClinicianCorrected result: Previously reported as 1.14 mmol/L on 11/24/2024 at 7:44 AM EDT. Performed By: #### 2 4344-4 ####[facility] LABIA [id number] [place] [address] [place] Calcium.ionized adjusted to pH 7.4 (BldA) [Moles/Vol] Normal 1.08-1.30 [facility] Comment on above: Order Comment: Speci men Type: VENOUS BLOOD SPECIMENOrdering Facility: [facility] Address: [address] [place] [address] Result Comment: Vj brown RN Canceled by ClinicianCorrected result: Previously reported as 1.15 mmol/L on 11/24/2024 at 7:44 AM EDT. Performed By: #### 2 4344-4 ####[facility] LABIA [id number] [place] [address] [place] Carboxyhemoglobin (BldV) [Mass fraction] Normal 0.0-2.0 [facility] Comment on above: Order Comment: Speci men Type: VENOUS BLOOD SPECIMENOrdering Facility: [facility] Address: [address] [place] [address] Result Comment: Vj brown RN Canceled by ClinicianCorrected result: Previously reported as 1.2 % on 11/24/2024 at 7:44 AM EDT. Performed By: #### 2 4344-4 ####[facility] LABIA [id number] [place] [address] [place] CO2 (BldV) [Partial pressure] Normal 42-55 [facility] Comment on above: Order Comment: Speci men Type: VENOUS BLOOD SPECIMENOrdering Facility: [facility] Address: [address] [place] [address] Result Comment: Vj brown RN Canceled by ClinicianCorrected result: Previously reported as 46 mmHg on 11/24/2024 at 7:44 AM EDT. Performed By: #### 2 4344-4 ####[facility] LABCLIA [id number] [address] [address] [place] CO2 adjusted to patient's actual temperature (BldV) [Partial pressure] Normal 42-55 [facility] Comment on above: Order Comment: Speci men Type: VENOUS BLOOD SPECIMENOrdering Facility: [facility] Address: [address] [place] [address] Result Comment: Vj brown RN Canceled by ClinicianCorrected result: Previously reported as 46 mmHg on 11/24/2024 at 7:44 AM EDT. Performed By: #### 2 4344-4 ####[facility] LABCLIA [id number] [place] [address] [place] Glucose [Mass/Vol] Normal 60-105 [facility] Comment on above: Order Comment: Speci men Type: VENOUS BLOOD SPECIMENOrdering Facility: [facility] Address: [address] [place] [address] Result Comment: Vj brown RN Canceled by ClinicianCorrected result: Previously reported as 78 mg/dL on 11/24/2024 at 7:44 AM EDT. Performed By: #### 2 4344-4 ####[facility] LABIA [id number] [place] [id number] [place] HCO3 (Bld) [Moles/Vol] Normal 24-28 [facility] Comment on above: Order Comment: Speci men Type: VENOUS BLOOD SPECIMENOrdering Facility: [facility] Address: [address] [place] [address] Result Comment: Vj brown RN Canceled by ClinicianCorrected result: Previously reported as 29 mmol/L on 11/24/2024 at 7:44 AM EDT. Performed By: #### 2 4344-4 ####[facility] LABCLIA [id number] [address] STATES [place] [facility] Hematocrit (Bld) [Volume fraction] Normal 39.0-51.0 [facility] Comment on above: Order Comment: Speci men Type: VENOUS BLOOD SPECIMENOrdering Facility: [facility] Address: [address] [place] [address] Result Comment: Vj brown RN Canceled by ClinicianCorrected result: Previously reported as 34.7 % on 11/24/2024 at 7:44 AM EDT. Performed By: #### 2 4344-4 ####[facility] LABIA [id number] [address] Hemoglobin (Bld) [Mass/Vol] Normal 13.0-17.0 [facility] Comment on above: Order Comment: Speci men Type: VENOUS BLOOD SPECIMENOrdering Facility: [facility] Address: [address] [place] [address] Result Comment: Vj brown RN Canceled by ClinicianCorrected result: Previously reported as 11.2 g/dL on 11/24/2024 at 7:44 AM EDT. Performed By: #### 2 4344-4 ####[facility] LABIA [id number] [address] STATES OF [facility] Lactate [Moles/Vol] Normal 0.5-2.2 [facility] Comment on above: Order Comment: Speci men Type: VENOUS BLOOD SPECIMENOrdering Facility: [facility] Address: [address] [place] [address] Result Comment: Vj brown RN Canceled by ClinicianCorrected result: Previously reported as 0.9 mmol/L on 11/24/2024 at 7:44 AM EDT. Performed By: #### 2 4344-4 ####[facility] LABCLIA [id number] [place] [id number] [facility] Methemoglobin (Bld) [Mass fraction] Normal 0.0-1.5 [facility] Comment on above: Order Comment: Speci men Type: VENOUS BLOOD SPECIMENOrdering Facility: [facility] Address: [address] [place] [address] Result Comment: Vj brown RN Canceled by ClinicianCorrected result: Previously reported as 1.0 % on 11/24/2024 at 7:44 AM EDT. Performed By: #### 2 4344-4 ####[facility] LABCLIA [id number] [place] [address] [place] O2 THERAPY RA=Room Air Normal [facility] Comment on above: Order Comment: Speci men Type: VENOUS BLOOD SPECIMENOrdering Facility: [facility] Address: [address] [place] [address] Performed By: #### 2 4344-4 ####[facility] LABCLIA [id number] [address] [place] Oxygen (BldV) [Partial pressure] Normal 35-45 [facility] Comment on above: Order Comment: Speci men Type: VENOUS BLOOD SPECIMENOrdering Facility: [facility] Address: [address] [place] [address] Result Comment: Vj brown RN Canceled by ClinicianCorrected result: Previously reported as 85 mmHg on 11/24/2024 at 7:44 AM EDT. Performed By: #### 2 4344-4 ####[facility] LABCLIA [id number] [place] [id number] [place] Oxygen adjusted to patient's actual temperature (BldV) [Partial pressure] Normal 35-45 [facility] Comment on above: Order Comment: Speci men Type: VENOUS BLOOD SPECIMENOrdering Facility: [facility] Address: [address] [place] [address] Result Comment: Vj brown RN Canceled by ClinicianCorrected result: Previously reported as 84 mmHg on 11/24/2024 at 7:44 AM EDT. Performed By: #### 2 4344-4 ####[facility] LABCLIA [id number] [address] [address] [place] Oxygen saturation in Venous blood Normal 60-85 [facility] Comment on above: Order Comment: Speci men Type: VENOUS BLOOD SPECIMENOrdering Facility: [facility] Address: [address] [place] [address] Result Comment: Vj brown RN Canceled by ClinicianCorrected result: Previously reported as 96 % on 11/24/2024 at 7:44 AM EDT. Performed By: #### 2 4344-4 ####[facility] LABCLIA [id number] [address] [address] [place] Oxyhemoglobin (BldV) [Mass fraction] Normal 60-85 [facility] Comment on above: Order Comment: Speci men Type: VENOUS BLOOD SPECIMENOrdering Facility: [facility] Address: [address] [place] [address] Result Comment: Vj brown RN Canceled by ClinicianCorrected result: Previously reported as 94 % on 11/24/2024 at 7:44 AM EDT. Performed By: #### 2 4344-4 ####[facility] LABCLIA [id number] [address] [address] [place] pH (BldV) Normal 7.32-7.42 [facility] Comment on above: Order Comment: Speci men Type: VENOUS BLOOD SPECIMENOrdering Facility: [facility] Address: [address] [place], [place] [address] Result Comment: Vj brown RN Canceled by ClinicianCorrected result: Previously reported as 7.42 on 11/24/2024 at 7:44 AM EDT. Performed By: #### 2 4344-4 ####[facility] LABCLIA [id number] [address] [place] [address] [place] pH adjusted to patient's actual temperature (BldV) Normal 7.32-7.42 [facility] Comment on above: Order Comment: Speci men Type: VENOUS BLOOD SPECIMENOrdering Facility: [facility] Address: [address] [place] [address] Result Comment: Vj brown RN Canceled by ClinicianCorrected result: Previously reported as 7.42 on 11/24/2024 at 7:44 AM EDT. Performed By: #### 2 4344-4 ####[facility] LABIA [id number] [place] [id number] [place] Potassium [Moles/Vol] Normal 3.5-5.0 [facility] Comment on above: Order Comment: Speci men Type: VENOUS BLOOD SPECIMENOrdering Facility: [facility] Address: [address] [place] [address] Result Comment: Vj brown RN Canceled by ClinicianCorrected result: Previously reported as 4.4 mmol/L on 11/24/2024 at 7:44 AM EDT. Performed By: #### 2 4344-4 ####[facility] LABIA [id number] [place] [id number] [place] Sodium [Moles/Vol] Normal 136-144 [facility] Comment on above: Order Comment: Speci men Type: VENOUS BLOOD SPECIMENOrdering Facility: [facility] Address: [address] [place] [address] Result Comment: Vj brown RN Canceled by ClinicianCorrected result: Previously reported as 134 mmol/L on 11/24/2024 at 7:44 AM EDT. Performed By: #### 2 4344-4 ####[facility] LABIA [id number] [address] [address] [place] TEMPERATURE, BODY Normal [facility] Comment on above: Order Comment: Speci men Type: VENOUS BLOOD SPECIMENOrdering Facility: [facility] Address: [address] [place] [address] Result Comment: Vj brown RN Canceled by ClinicianCorrected result: Previously reported as 36.9 C on 11/24/2024 at 7:44 AM EDT. Performed By: #### 2 4344-4 ####[facility] LABCLIA [id number] [address] [address] [place] Magnesium SerPl-ncon 11-24 Magnesium [Mass/Vol] 2.2 mg/dL Normal 1.7-2.3 [facility] Comment on above: Order Comment: Speci men Type: BLOOD SPECIMENOrdering Facility: [facility] Address: [address] [place] [address] Performed By: #### 1 9123-9, 95654-5, 2777-1 ####[facility] LABIA [id number] [place] [id number] [place] Phosphate SerPl-ncon 11-24 Phosphate [Mass/Vol] 6.3 mg/dL High 2.7-4.8 [facility] Comment on above: Order Comment: Speci men Type: BLOOD SPECIMENOrdering Facility: [facility] Address: [address] [place] [address] Performed By: #### 1 9123-9, 80971-3, 2777-1 ####[facility] LABIA [id number] [place] [id number] [facility] [place] THERAPY NTon 11-24-2024 THERAPY NT Normal [facility] aPTT PPPon 11-24-2024 aPTT Coag (PPP) [Time] 32.9 s High 23.0-32.4 [facility] Comment on above: Order Comment: Speci men Type: BLOOD SPECIMENOrdering Facility: [facility] Address: [address] [place] [address] Performed By: #### 1 4979-9 ####[facility] LABIA [id number] [place] [id number] [place] ARTERIAL BLOOD GASESon 11-23 Base excess Calc (Bld) [Moles/Vol] 7 mmol/L High 0-2 [facility] Comment on above: Order Comment: Speci men Type: ARTERIAL BLOOD SPECIMENOrdering Facility: [facility] Address: [address] [place] [address] Performed By: #### A LLBG ####[facility] LABCLIA [id number] [place] [address] [place] Body temperature 97.7 [degF] Normal [facility] Comment on above: Order Comment: Speci men Type: ARTERIAL BLOOD SPECIMENOrdering Facility: [facility] Address: [address] [place] [address] Performed By: #### A LLBG ####[facility] LABCLIA [id number] [place] [address] [place] Calcium.ionized (Bld) [Mass/Vol] 1.06 mmol/L Low 1.08-1.30 [facility] Comment on above: Order Comment: Speci men Type: ARTERIAL BLOOD SPECIMENOrdering Facility: [facility] Address: [address] [place] [address] Performed By: #### A LLBG ####[facility] LABIA [id number] [place] [address] [place] Calcium.ionized adjusted to pH 7.4 (BldA) [Moles/Vol] 1.11 mmol/L Normal 1.08-1.30 [facility] Comment on above: Order Comment: Speci men Type: ARTERIAL BLOOD SPECIMENOrdering Facility: [facility] Address: [address] [place] [address] Performed By: #### A LLBG ####[facility] LABCLIA [id number] [place] [id number] [place] Carboxyhemoglobin (BldA) [Mass fraction] 0.5 % Normal 0.0-2.0 [facility] Comment on above: Order Comment: Speci men Type: ARTERIAL BLOOD SPECIMENOrdering Facility: [facility] Address: [address] [place] [address] Result Comment: Carb oxyhemoglobin Reference Range for Smokers: 2.0-8.0% Performed By: #### A LLBG ####[facility] LABCLIA [id number] [place] [address] [place] CO2 (Bld) [Partial pressure] 39 mm Hg Normal 36-46 [facility] Comment on above: Order Comment: Speci men Type: ARTERIAL BLOOD SPECIMENOrdering Facility: [facility] Address: [address] [place] [address] Performed By: #### A LLBG ####[facility] LABIA [id number] [place] [address] [place] CO2 adjusted to patient's actual temperature (Bld) [Partial pressure] 38 mmHg Normal 36-46 [facility] Comment on above: Order Comment: Speci men Type: ARTERIAL BLOOD SPECIMENOrdering Facility: [facility] Address: [address] [place] [address] Performed By: #### A LLBG ####[facility] LABIA [id number] [place] [address] [place] Glucose [Mass/Vol] 144 mg/dL High 60-105 [facility] Comment on above: Order Comment: Speci men Type: ARTERIAL BLOOD SPECIMENOrdering Facility: [facility] Address: [address] [place] [address] Performed By: #### A LLBG ####[facility] LABIA [id number] [place] [address] [place] HCO3 (Bld) [Moles/Vol] 30 mmol/L High 22-26 [facility] Comment on above: Order Comment: Speci men Type: ARTERIAL BLOOD SPECIMENOrdering Facility: [facility] Address: [address] [place] [address] Performed By: #### A LLBG ####[facility] LABCLIA [id number] [place] [id number] [place] Hematocrit (Bld) [Volume fraction] 34.1 % Low 39.0-51.0 [facility] Comment on above: Order Comment: Speci men Type: ARTERIAL BLOOD SPECIMENOrdering Facility: [facility] Address: [address] [place] [address] Performed By: #### A LLBG ####[facility] LABCLIA [id number] [place] [address] [place] Hemoglobin (Bld) [Mass/Vol] 11.1 g/dL Low 13.0-17.0 [facility] Comment on above: Order Comment: Speci men Type: ARTERIAL BLOOD SPECIMENOrdering Facility: [facility] Address: [address] [place] [address] Performed By: #### A LLBG ####[facility] LABIA [id number] [place] [address] [place] Lactate [Moles/Vol] 1.5 mmol/L Normal 0.5-2.2 [facility] Comment on above: Order Comment: Speci men Type: ARTERIAL BLOOD SPECIMENOrdering Facility: [facility] Address: [address] [place] [address] Performed By: #### A LLBG ####[facility] LABIA [id number] [place] [address] [place] Methemoglobin (Bld) [Mass fraction] 1.2 % Normal 0.0-1.5 [facility] Comment on above: Order Comment: Speci men Type: ARTERIAL BLOOD SPECIMENOrdering Facility: [facility] Address: [address] [place] [address] Performed By: #### A LLBG ####[facility] LABIA [id number] [place] [id number] [place] O2 THERAPY RA=Room Air Normal [facility] Comment on above: Order Comment: Speci men Type: ARTERIAL BLOOD SPECIMENOrdering Facility: [facility] Address: [address] [place] [id number] Performed By: #### A LLBG ####[facility] LABCLIA [id number] [address] [address] [place] Oxygen (Bld) [Partial pressure] 105 mm Hg High 85-95 [facility] Comment on above: Order Comment: Speci men Type: ARTERIAL BLOOD SPECIMENOrdering Facility: [facility] Address: [address] [place], [place] [address] Performed By: #### A LLBG ####[facility] LABCLIA [id number] [place] [id number] [place] Oxygen adjusted to patient's actual temperature (Bld) [Partial pressure] 102 mmHg High 85-95 [facility] Comment on above: Order Comment: Speci men Type: ARTERIAL BLOOD SPECIMENOrdering Facility: [facility] Address: [address] [place] [address] Performed By: #### A LLBG ####[facility] LABCLIA [id number] [place] [address] [place] Oxyhemoglobin (BldA) [Mass fraction] 95 % Normal 95-98 [facility] Comment on above: Order Comment: Speci men Type: ARTERIAL BLOOD SPECIMENOrdering Facility: [facility] Address: [address] [place], [place] [address] Performed By: #### A LLBG ####[facility] LABCLIA [id number] [address] [address] [place] pH (Bld) 7.50 [pH] High 7.35-7.45 [facility] Comment on above: Order Comment: Speci men Type: ARTERIAL BLOOD SPECIMENOrdering Facility: [facility] Address: [address] [place], [place] [address] Performed By: #### A LLBG ####[facility] LABCLIA [id number] [address] [address] [place] pH adjusted to patient's actual temperature (Bld) 7.51 High 7.35-7.45 [facility] Comment on above: Order Comment: Speci men Type: ARTERIAL BLOOD SPECIMENOrdering Facility: [facility] Address: [address] [place] [address] Performed By: #### A LLBG ####[facility] LABCLIA [id number] [place] [address] [place] PO2 / FIO2 RATIO 500 mmHg Normal >300 [facility] Comment on above: Order Comment: Speci men Type: ARTERIAL BLOOD SPECIMENOrdering Facility: [facility] Address: [address] [place] [address] Performed By: #### A LLBG ####[facility] LABIA [id number] [place] [address] [place] Potassium [Moles/Vol] 3.8 mmol/L Normal 3.5-5.0 [facility] Comment on above: Order Comment: Speci men Type: ARTERIAL BLOOD SPECIMENOrdering Facility: [facility] Address: [address] [place] [address] Performed By: #### A LLBG ####[facility] LABIA [id number] [place] [address] [place] Sodium [Moles/Vol] 133 mmol/L Low 136-144 [facility] Comment on above: Order Comment: Speci men Type: ARTERIAL BLOOD SPECIMENOrdering Facility: [facility] Address: [address] [place], [place] [address] Performed By: #### A LLBG ####[facility] LABCLIA [id number] [place] [id number] [place] [facility] Urea nitrogen post dialysis [Mass/Vol] 34 mg/dL High 9-24 [facility] Comment on above: Order Comment: Speci men Type: BLOOD SPECIMENOrdering Facility: [facility] Address: [address] [place] [id number] Performed By: #### 1 1064-3 ####[facility] LABCLIA [id number] [address] [address] [place] BUN pre dial SerPl-mCncon Urea nitrogen pre dialysis [Mass/Vol] 103 mg/dL High 9-24 [facility] Comment on above: Order Comment: Speci men Type: BLOOD SPECIMENOrdering Facility: [facility] Address: [address] [place] [address] Performed By: #### 1 1065-0, 3024-7, 3016-3 ####[facility] LABCLIA [id number] [address] [place] Basic Metabolic Profile (BMP )on 11-23-2024 BUN Normal 4-19 [facility] Comment on above: Result Comment: Canc elled via OM: MD Ordered Performed By: #### L 500.2500, L100.0100 ####[facility] [address] [place], [address] BUN/CRE Normal 10-20 [facility] Comment on above: Result Comment: Canc elled via OM: MD Ordered Performed By: #### L 500.2500, L100.0100 ####[facility] [address] [place], [address] Calcium Normal 7.6-11.0 [facility] Comment on above: Result Comment: Canc elled via OM: MD Ordered Performed By: #### L 500.2500, L100.0100 ####[facility] [address] [place], [address] CL Normal 98-108 [facility] Comment on above: Result Comment: Canc elled via OM: MD Ordered Performed By: #### L 500.2500, L100.0100 ####[facility] [facility] [address] [place], [address] CO2 Normal 21.0-32.0 [facility] Comment on above: Result Comment: Canc elled via OM: MD Ordered Performed By: #### L 500.2500, L100.0100 ####[facility] [address] [place], [address] CREAT,SERUM Normal 0.70-1.20 [facility] Comment on above: Result Comment: Canc elled via OM: MD Ordered Performed By: #### L 500.2500, L100.0100 ####[facility] [address] [place], [address] eGFR Normal >60 [facility] Comment on above: Result Comment: Canc elled via OM: MD Ordered Performed By: #### L 500.2500, L100.0100 ####[facility] [address] [place], [address] GAP Normal 5-15 [facility] Comment on above: Result Comment: Canc elled via OM: MD Ordered Performed By: #### L 500.2500, L100.0100 ####[facility] [address] [place], [address] GLU Normal 70-99 [facility] Comment on above: Result Comment: Canc elled via OM: MD Ordered Performed By: #### L 500.2500, L100.0100 ####[facility] [address] [place], [address] Potassium Normal 3.3-5.1 [facility] Comment on above: Result Comment: Canc elled via OM: MD Ordered Performed By: #### L 500.2500, L100.0100 ####[facility] [address] [place], [address] Basic Metabolic Profile (BMP) Normal 133-145 [facility] Comment on above: Result Comment: Canc elled via OM: MD Ordered Performed By: #### L 500.2500, L100.0100 ####[facility] [address] [place], [address] CBC W/Diff, Automatedon 07-0 Absolute Neut Normal 2.0-7.7 [facility] Comment on above: Result Comment: Canc elled via OM: MD Ordered Performed By: #### L 500.2500, L100.0100 ####[facility] [address] [place], [address] HCT Normal 40-54 [facility] Comment on above: Result Comment: Canc elled via OM: MD Ordered Performed By: #### L 500.2500, L100.0100 ####[facility] [address] [place], [address] HGB Normal 13.0-16.5 [facility] Comment on above: Result Comment: Canc elled via OM: MD Ordered Performed By: #### L 500.2500, L100.0100 ####[facility] [address] [place], [address] MCH Normal 27.0-32.0 [facility] Comment on above: Result Comment: Canc elled via OM: MD Ordered Performed By: #### L 500.2500, L100.0100 ####[facility] [address] [place], [address] MCHC Normal 32-36 [facility] Comment on above: Result Comment: Canc elled via OM: MD Ordered Performed By: #### L 500.2500, L100.0100 ####[facility] [address] [place], [address] MCV Normal 80-94 [facility] Comment on above: Result Comment: Canc elled via OM: MD Ordered Performed By: #### L 500.2500, L100.0100 ####[facility] [address] [place], [address] NEUT% Normal 47-70 [facility] Comment on above: Result Comment: Canc elled via OM: MD Ordered Performed By: #### L 500.2500, L100.0100 ####[facility] [address] [place], [address] PLT Normal 150-450 [facility] Comment on above: Result Comment: Canc elled via OM: MD Ordered Performed By: #### L 500.2500, L100.0100 ####[facility] [address] [place], [address] RBC Normal 4.6-6.2 [facility] Comment on above: Result Comment: Canc elled via OM: MD Ordered Performed By: #### L 500.2500, L100.0100 ####[facility] [address] [place], [address] RDW CV Normal 11.6-14.6 [facility] Comment on above: Result Comment: Canc elled via OM: MD Ordered Performed By: #### L 500.2500, L100.0100 ####[facility] [address] [place], [address] RDW SD Normal 35.1-43.9 [facility] Comment on above: Result Comment: Canc elled via OM: MD Ordered Performed By: #### L 500.2500, L100.0100 ####[facility] [address] [place], [address] WBC Normal 4.4-11.0 [facility] Comment on above: Result Comment: Canc elled via OM: MD Ordered Performed By: #### L 500.2500, L100.0100 ####[facility] [address] [place], [address] CBC panel Auto (Bld)on 11-23 Erythrocyte distribution width (RBC) [Ratio] 16.1 % High 11.5-15.0 [facility] Comment on above: Order Comment: Speci men Type: BLOOD SPECIMENOrdering Facility: [facility] Address: [address] [place] [address] Performed By: #### 5 5454-3, 66841-0 ####[facility] LABCLIA [id number] [place] [address] [place] Hematocrit (Bld) [Volume fraction] 33.7 % Low 39.0-51.0 [facility] Comment on above: Order Comment: Speci men Type: BLOOD SPECIMENOrdering Facility: [facility] Address: [address] [place] [address] Performed By: #### 5 5454-3, 90970-8 ####[facility] LABCLIA [id number] [place] [address] [place] Hemoglobin (Bld) [Mass/Vol] 10.6 g/dL Low 13.0-17.0 [facility] Comment on above: Order Comment: Speci men Type: BLOOD SPECIMENOrdering Facility: [facility] Address: [address] [place] [address] Performed By: #### 5 5454-3, 05711-5 ####[facility] LABCLIA [id number] [place] [address] [place] MCH (RBC) [Entitic mass] 28.0 pg Normal 26.0-34.0 [facility] Comment on above: Order Comment: Speci men Type: BLOOD SPECIMENOrdering Facility: [facility] Address: [address] [place] [address] Performed By: #### 5 5454-3, 66310-2 ####[facility] LABCLIA [id number] [place] [id number] [place] MCHC (RBC) [Mass/Vol] 31.5 g/dL Normal 30.5-36.0 [facility] Comment on above: Order Comment: Speci men Type: BLOOD SPECIMENOrdering Facility: [facility] Address: [address] [place] [address] Performed By: #### 5 5454-3, 72608-4 ####[facility] LABCLIA [id number] [place] [id number] [place] MCV (RBC) [Entitic vol] 88.9 fL Normal 80.0-100.0 [facility] Comment on above: Order Comment: Speci men Type: BLOOD SPECIMENOrdering Facility: [facility] Address: [address] [place] [address] Performed By: #### 5 5454-3, 84510-7 ####[facility] LABIA [id number] [place] [address] [place] Nucleated RBC (Bld) [#/Vol] 10*3/uL Normal <0.01 [facility] Comment on above: Order Comment: Speci men Type: BLOOD SPECIMENOrdering Facility: [facility] Address: [address] [place] [address] Performed By: #### 5 5454-3, 93478-9 ####[facility] LABIA [id number] [place] [address] [place] Platelet mean volume (Bld) [Entitic vol] 11.8 fL Normal 9.0-12.7 [facility] Comment on above: Order Comment: Speci men Type: BLOOD SPECIMENOrdering Facility: [facility] Address: [address] [place] [address] Performed By: #### 5 5454-3, 78210-9 ####[facility] LABCLIA [id number] [place] [id number] [place] Platelets (Bld) [#/Vol] 144 10*3/uL Low 150-400 [facility] Comment on above: Order Comment: Speci men Type: BLOOD SPECIMENOrdering Facility: [facility] Address: [address] [place] [address] Performed By: #### 5 5454-3, 55391-3 ####[facility] LABCLIA [id number] [place] [address] [place] RBC (Bld) [#/Vol] 3.79 10*6/uL Low 4.20-6.00 [facility] Comment on above: Order Comment: Speci men Type: BLOOD SPECIMENOrdering Facility: [facility] Address: [address] [place] [address] Performed By: #### 5 5454-3, 63557-5 ####[facility] LABCLIA [id number] [place] [address] [place] WBC (Bld) [#/Vol] 9.87 10*3/uL Normal 3.70-11.00 [facility] Comment on above: Order Comment: Speci men Type: BLOOD SPECIMENOrdering Facility: [facility] Address: [address] [place] [address] Performed By: #### 5 5454-3, 15520-5 ####[facility] LABCLIA [id number] [address] [place] CONFIRM BLOOD TYPEon 025 ABO A Normal [facility] Comment on above: Order Comment: Speci men Type: BLOOD SPECIMENOrdering Facility: [facility] Address: [address] [place] [address] Performed By: #### C ONABO ####[facility] BANKCLIA [id number] [place] [address] [place] Rh Nom (Bld) Positive Normal [facility] Comment on above: Order Comment: Speci men Type: BLOOD SPECIMENOrdering Facility: [facility] Address: [address] [place] [address] Performed By: #### C ONABO ####[facility]ANKIA [id number] [address] [address] [place] CONSULTon 11-23-2024 CONSULT Normal [facility] CONSULT Normal [facility] Comprehensive metabolic 2000 panelon 11-23-2024 Albumin [Mass/Vol] 3.7 g/dL Low 3.9-4.9 [facility] Comment on above: Order Comment: Speci men Type: BLOOD SPECIMENOrdering Facility: [facility] Address: [address] [place] [address] Performed By: #### 2 777-1, LIPNF, 2276-4, 52837-4, 42294-0, 00864-4 ####[facility] LABIA [id number] [place] [id number] [place] ALP [Catalytic activity/Vol] 68 U/L Normal 38-113 [facility] Comment on above: Order Comment: Speci men Type: BLOOD SPECIMENOrdering Facility: [facility] Address: [address] [place] [address] Performed By: #### 2 777-1, LIPNF, 6-4, 18779-1, 12331-2, 08719-2 ####[facility] LABIA [id number] [address] [address] [place] ALT [Catalytic activity/Vol] 43 U/L Normal 10-54 [facility] Comment on above: Order Comment: Speci men Type: BLOOD SPECIMENOrdering Facility: [facility] Address: [address] [place], [place] [address] Performed By: #### 2 777-1, LIPNF, 2276-4, 82137-4, 77945-7, 68003-1 ####[facility] LABIA [id number] [address] [address] [place] Anion gap [Moles/Vol] 23 mmol/L High 8-15 [facility] Comment on above: Order Comment: Speci men Type: BLOOD SPECIMENOrdering Facility: [facility] Address: [address] [place], [place] [address] Performed By: #### 2 777-1, LIPNF, 2275-4, 72390-6, 28848-4, 48180-2 ####[facility] LABCLIA [id number] [address] [place] [address] [place] AST [Catalytic activity/Vol] 17 U/L Normal 14-40 [facility] Comment on above: Order Comment: Speci men Type: BLOOD SPECIMENOrdering Facility: [facility] Address: [address] [place], [place] [address] Performed By: #### 2 777-1, LIPNF, 2275-4, 80218-9, 34188-1, 43753-7 ####[facility] LABCLIA [id number] [address] [place] [address] [place] Bilirubin [Mass/Vol] 0.2 mg/dL Normal 0.2-1.3 [facility] Comment on above: Order Comment: Speci men Type: BLOOD SPECIMENOrdering Facility: [facility] Address: [address] [place] [address] Performed By: #### 2 777-1, LIPNF, 6-4, 42009-3, 59646-9, 60509-5 ####[facility] LABCLIA [id number] [address] [place] [address] [place] Calcium [Mass/Vol] 9.3 mg/dL Normal 8.5-10.2 [facility] Comment on above: Order Comment: Speci men Type: BLOOD SPECIMENOrdering Facility: [facility] Address: [address] [place], [place] [address] Performed By: #### 2 777-1, LIPNF, 6-4, 24830-8, 88293-7, 62244-7 ####[facility] LABCLIA [id number] [address] [place] [address] [place] Chloride [Moles/Vol] 86 mmol/L Low 98-107 [facility] Comment on above: Order Comment: Speci men Type: BLOOD SPECIMENOrdering Facility: [facility] Address: [address] [place] [address] Performed By: #### 2 777-1, LIPNF, 2276-4, 94607-9, 41463-1, 66850-7 ####[facility] LABIA [id number] [place] [id number] [place] CO2 [Moles/Vol] 21 mmol/L Low 22-30 [facility] Comment on above: Order Comment: Speci men Type: BLOOD SPECIMENOrdering Facility: [facility] Address: [address] [place] [address] Performed By: #### 2 777-1, LIPNF, 2276-4, 57925-0, 50414-1, 95659-3 ####[facility] [id number] [place] [id number] [place] Creatinine [Mass/Vol] 7.48 mg/dL High 0.73-1.22 [facility] Comment on above: Order Comment: Speci men Type: BLOOD SPECIMENOrdering Facility: [facility] Address: [address] [place] [address] Performed By: #### 2 777-1, LIPNF, 2276-4, 60046-7, 53302-8, 71267-6 ####[facility] [id number] [place] [id number] [place] Creatinine and Glomerular filtration rate.predicted panel (S/P/Bld) 7 mL/min/1.73m??? Low >=60 [facility] Comment on above: Order Comment: Speci men Type: BLOOD SPECIMENOrdering Facility: [facility] Address: [address] [place] [address] Result Comment: Tessa mated Glomerular Filtration Rate [...] Performed By: #### 2 777-1, LIPNF, 2276-4, 24613-8, 85667-3, 60769-4 ####[facility] LABCLIA [id number] [address] [address] [place] Glucose [Mass/Vol] 215 mg/dL High 74-99 [facility] Comment on above: Order Comment: Speci men Type: BLOOD SPECIMENOrdering Facility: [facility] Address: [address] [place] [address] Result Comment: The [place] Diabetes [employer] (ADA) provides guidance for [...] Standards of Medical Care in Diabetes 2016, [place] [employer]. Diabetes Care. 2016.39(Suppl 1). Performed By: #### 2 777-1, LIPNF, 6-4, 37993-9, 90911-0, 52317-9 ####[facility] LABCLIA [id number] [address] [address] [place] Potassium [Moles/Vol] 5.4 mmol/L High 3.7-5.1 [facility] Comment on above: Order Comment: Speci men Type: BLOOD SPECIMENOrdering Facility: [facility] Address: [address] [place] [address] Performed By: #### 2 777-1, LIPNF, 6-4, 34116-4, 36148-9, 68799-6 ####[facility] LABCLIA [id number] [address] [address] [place] Protein [Mass/Vol] 6.9 g/dL Normal 6.3-8.0 [facility] Comment on above: Order Comment: Speci men Type: BLOOD SPECIMENOrdering Facility: [facility] Address: [address] [place] [address] Performed By: #### 2 777-1, LIPNF, 2276-4, 29888-0, 49435-5, 03363-3 ####[facility] LABIA [id number] [place] [id number] [place] Sodium [Moles/Vol] 130 mmol/L Low 136-144 [facility] Comment on above: Order Comment: Speci men Type: BLOOD SPECIMENOrdering Facility: [facility] Address: [address] [place] [address] Performed By: #### 2 777-1, LIPNF, 2276-4, 99689-0, 36711-2, 42997-1 ####[facility] LABIA [id number] [place] [id number] [place] Urea nitrogen [Mass/Vol] 100 mg/dL High 9-24 [facility] Comment on above: Order Comment: Speci men Type: BLOOD SPECIMENOrdering Facility: [facility] Address: [address] [place] [address] Performed By: #### 2 777-1, LIPNF, 2276-4, 95916-4, 76704-3, 90978-9 ####[facility] LABIA [id number] [place] [id number] [place] ECG COMPLETEon 11-23-2024 ECG COMPLETE Normal [facility] EXT41zy 11-23-2024 ECG01 Normal [facility] ECHO LIMITEDon 11-23-2024 ECHO LIMITED Normal [facility] ECHO LIMITED Normal [facility] Ferritin SerPl-mCncon 2024 Ferritin [Mass/Vol] 1473.0 ng/mL High 30.3-565.7 [facility] Comment on above: Order Comment: Speci men Type: BLOOD SPECIMENOrdering Facility: [facility] Address: [address] [place] [address] Performed By: #### 2 777-1, LIPNF, 2276-4, 32718-9, 38244-4, 71462-9 ####[facility] LABCLIA [id number] [place] [id number] [place] Gas and Carbon monoxide pane l (BldV)on 11-23-2024 BASE DEFICIT, VENOUS -1 mmol/L Normal -2-0 [facility] Comment on above: Order Comment: Speci men Type: VENOUS BLOOD SPECIMENOrdering Facility: [facility] Address: [address] [place] [address] Performed By: #### 2 4344-4 ####[facility] LABCLIA [id number] [place] [address] [place] Body temperature 98.6 [degF] Normal [facility] Comment on above: Order Comment: Speci men Type: VENOUS BLOOD SPECIMENOrdering Facility: [facility] Address: [address] [place] [address] Performed By: #### 2 4344-4 ####[facility] LABCLIA [id number] [place] [id number] [place] Calcium.ionized (Bld) [Mass/Vol] 1.14 mmol/L Normal 1.08-1.30 [facility] Comment on above: Order Comment: Speci men Type: VENOUS BLOOD SPECIMENOrdering Facility: [facility] Address: [address] [place] [address] Performed By: #### 2 4344-4 ####[facility] LABCLIA [id number] [place] [id number] [place] Calcium.ionized adjusted to pH 7.4 (BldA) [Moles/Vol] 1.07 mmol/L Low 1.08-1.30 [facility] Comment on above: Order Comment: Speci men Type: VENOUS BLOOD SPECIMENOrdering Facility: [facility] Address: [address] [place] [address] Performed By: #### 2 4344-4 ####[facility] LABIA [id number] [place] [address] [place] Carboxyhemoglobin (BldV) [Mass fraction] 0.8 % Normal 0.0-2.0 [facility] Comment on above: Order Comment: Speci men Type: VENOUS BLOOD SPECIMENOrdering Facility: [facility] Address: [address] [place] [address] Result Comment: Carb oxyhemoglobin Reference Range for Smokers: 2.0-8.0% Performed By: #### 2 4344-4 ####[facility] LABIA [id number] [place] [address] [place] CO2 (BldV) [Partial pressure] 56 mm[Hg] High 42-55 [facility] Comment on above: Order Comment: Speci men Type: VENOUS BLOOD SPECIMENOrdering Facility: [facility] Address: [address] [place] [address] Performed By: #### 2 4344-4 ####[facility] LABIA [id number] [place] [address] [place] Glucose [Mass/Vol] 228 mg/dL High 60-105 [facility] Comment on above: Order Comment: Speci men Type: VENOUS BLOOD SPECIMENOrdering Facility: [facility] Address: [address] [place] [address] Performed By: #### 2 4344-4 ####[facility] LABIA [id number] [place] [address] [place] HCO3 (Bld) [Moles/Vol] 26 mmol/L Normal 24-28 [facility] Comment on above: Order Comment: Speci men Type: VENOUS BLOOD SPECIMENOrdering Facility: [facility] Address: [address] [place] [address] Performed By: #### 2 4344-4 ####[facility] LABCLIA [id number] [place] [address] [place] Hematocrit (Bld) [Volume fraction] 34.4 % Low 39.0-51.0 [facility] Comment on above: Order Comment: Speci men Type: VENOUS BLOOD SPECIMENOrdering Facility: [facility] Address: [address] [place] [address] Performed By: #### 2 4344-4 ####[facility] LABCLIA [id number] [place] [address] [place] Hemoglobin (Bld) [Mass/Vol] 11.2 g/dL Low 13.0-17.0 [facility] Comment on above: Order Comment: Speci men Type: VENOUS BLOOD SPECIMENOrdering Facility: [facility] Address: [address] [place] [address] Performed By: #### 2 4344-4 ####[facility] LABIA [id number] [place] [address] [place] Lactate [Moles/Vol] 0.9 mmol/L Normal 0.5-2.2 [facility] Comment on above: Order Comment: Speci men Type: VENOUS BLOOD SPECIMENOrdering Facility: [facility] Address: [address] [place] [address] Performed By: #### 2 4344-4 ####[facility] LABCLIA [id number] [place] [address] [place] Methemoglobin (Bld) [Mass fraction] 1.2 % Normal 0.0-1.5 [facility] Comment on above: Order Comment: Speci men Type: VENOUS BLOOD SPECIMENOrdering Facility: [facility] Address: [address] [place] [address] Performed By: #### 2 4344-4 ####[facility] LABCLIA [id number] [place] [address] [place] O2 THERAPY RA=Room Air Normal [facility] Comment on above: Order Comment: Speci men Type: VENOUS BLOOD SPECIMENOrdering Facility: [facility] Address: [address] [place] [address] Performed By: #### 2 4344-4 ####[facility] LABIA [id number] [place] [address] [place] Oxygen (BldV) [Partial pressure] 24 mm[Hg] Low 35-45 [facility] Comment on above: Order Comment: Speci men Type: VENOUS BLOOD SPECIMENOrdering Facility: [facility] Address: [address] [place] [address] Performed By: #### 2 4344-4 ####[facility] LABIA [id number] [place] [address] [place] Oxygen saturation in Venous blood 28 % Low 60-85 [facility] Comment on above: Order Comment: Speci men Type: VENOUS BLOOD SPECIMENOrdering Facility: [facility] Address: [address] [place] [address] Performed By: #### 2 4344-4 ####[facility] LABIA [id number] [place] [id number] [place] Oxyhemoglobin (BldV) [Mass fraction] 27 % Low 60-85 [facility] Comment on above: Order Comment: Speci men Type: VENOUS BLOOD SPECIMENOrdering Facility: [facility] Address: [address] [place] [address] Performed By: #### 2 4344-4 ####[facility] LABIA [id number] [place] [id number] [place] pH (BldV) 7.29 [pH] Low 7.32-7.42 [facility] Comment on above: Order Comment: Speci men Type: VENOUS BLOOD SPECIMENOrdering Facility: [facility] Address: [address] [place] [address] Performed By: #### 2 4344-4 ####[facility] LABCLIA [id number] [place] [address] [place] Potassium [Moles/Vol] 5.3 mmol/L High 3.5-5.0 [facility] Comment on above: Order Comment: Speci men Type: VENOUS BLOOD SPECIMENOrdering Facility: [facility] Address: [address] [place] [address] Performed By: #### 2 4344-4 ####[facility] LABIA [id number] [place] [address] [place] Sodium [Moles/Vol] 128 mmol/L Low 136-144 [facility] Comment on above: Order Comment: Speci men Type: VENOUS BLOOD SPECIMENOrdering Facility: [facility] Address: [address] [place] [address] Performed By: #### 2 4344-4 ####[facility] LABIA [id number] [place] [address] [place] HBV surface Ab Ql (S)on HBV surface Ab Qn (S) 104.84 mIU/mL Normal [facility] Comment on above: Order Comment: Speci men Type: BLOOD SPECIMENOrdering Facility: [facility] Address: [address] [place] [address] Result Comment: <8 m IU/mL: No serological evidence of immunity to Hepatitis B Virus.>/= 8 to <12 mIU/mL: No serological evidence of immunity to Hepatitis B Virus.>/= 12 mIU/mL: Consistent with serological evidence of immunity to Hepatitis B Virus. Performed By: #### 5 195-3, 98646-2 ####[facility] LABCLIA [id number] [address] OF [facility] HBV surface Ab Ser Qlon HBV surface Ab Ql (S) Positive Normal [facility] Comment on above: Order Comment: Speci men Type: BLOOD SPECIMENOrdering Facility: [facility] Address: [address] [place] [address] Result Comment: Cons istent with serological evidence of immunity to Hepatitis B Virus. Performed By: #### 5 195-3, 71022-0 ####[facility] LABIA [id number] [address] [place] HBV surface Ag Ser Qlon HBV surface Ag Ql (S) Negative Normal Negative [facility] Comment on above: Order Comment: Ruddyi ash Type: BLOOD SPECIMENOrdering Facility: [facility] Address: [address] [place] [address] Performed By: #### 5 195-3, 10067-1 ####[facility] [id number] [place] [address] [place] HISTORY PHYSICALon HISTORY PHYSICAL Normal [facility] HbA1c (Bld)on 11-23-2024 Average glucose Estimated from glycated hemoglobin (Bld) [Mass/Vol] 154 mg/dL Normal [facility] Comment on above: Order Comment: Speci men Type: BLOOD SPECIMENOrdering Facility: [facility] Address: [address] [place] [address] Result Comment: eAG: (Estimated average glucose) is a calculated value from HgbA1c and is service center representative of the average blood glucose level in the last 2-3 month period. Performed By: #### 5 5454-3, 39653-7 ####[facility] LABIA [id number] [place] [address] [place] HbA1c (Bld) [Mass fraction] 7.0 % High 4.3-5.6 [facility] Comment on above: Order Comment: Speci men Type: BLOOD SPECIMENOrdering Facility: [facility] Address: [address] [place] [address] Result Comment: [place] Diabetes Association guidelines indicate that patients with HgbA1c in the range 5.7-6.4% are at increased risk for development of diabetes, and intervention by lifestyle modification may be beneficial. HgbA1c greater or equal to 6.5% is considered diagnostic of diabetes. Performed By: #### 5 5454-3, 64856-8 ####[facility] LABCLIA [id number] [place] [address] [place] Iron and Iron binding capaci ty panelon 11-23-2024 Iron [Mass/Vol] 105 ug/dL Normal 41-186 [facility] Comment on above: Order Comment: Speci men Type: BLOOD SPECIMENOrdering Facility: [facility] Address: [address] [place] [address] Performed By: #### 2 777-1, LIPNF, 2276-4, 67362-1, 76476-0, 77469-3 ####[facility] LABCLIA [id number] [place] [address] [place] Iron binding capacity [Mass/Vol] 179 ug/dL Low 232-386 [facility] Comment on above: Order Comment: Speci men Type: BLOOD SPECIMENOrdering Facility: [facility] Address: [address] [place] [address] Performed By: #### 2 777-1, LIPNF, 6-4, 87363-4, 84567-7, 01876-2 ####[facility] LABCLIA [id number] [address] [address] [place] Iron/TIBC [Molar ratio] 58.7 % High 15.0-57.0 [facility] Comment on above: Order Comment: Speci men Type: BLOOD SPECIMENOrdering Facility: [facility] Address: [address] [place] [address] Performed By: #### 2 777-1, LIPNF, 2276-4, 39448-3, 35155-8, 66937-1 ####[facility] LABCLIA [id number] [place] [address] [place] LIPID PANEL, NONFASTINGon Cholesterol [Mass/Vol] 113 mg/dL Normal <200 [facility] Comment on above: Order Comment: Speci men Type: BLOOD SPECIMENOrdering Facility: [facility] Address: [address] [place] [address] Result Comment: <200 mg/dL, Desirable 200-239 mg/dL, Borderline high>239 mg/dL, High Performed By: #### 2 777-1, LIPNF, 6-4, 85950-4, 52246-0, 69363-5 ####[facility] LABCLIA [id number] [place] [id number] [place] HDL CHOLESTEROL, NF 48 mg/dL Normal >39 [facility] Comment on above: Order Comment: Speci men Type: BLOOD SPECIMENOrdering Facility: [facility] Address: [address] [place] [address] Result Comment: 40-5 9 mg/dL, Acceptable>59 mg/dL, High: Negative risk factor for coronary heart disease<40 mg/dL, Low: Positive risk factor for coronary heart disease Performed By: #### 2 777-1, LIPNF, 6-4, 36035-9, 98807-9, 04321-8 ####[facility] LABCLIA [id number] [address] [place] LDL CHOLESTEROL CALCULATED, NF 56 mg/dL Normal <100 [facility] Comment on above: Order Comment: Speci men Type: BLOOD SPECIMENOrdering Facility: [facility] Address: [address] [place] [address] Result Comment: <100 mg/dL, Optimal 100-129 mg/dL, Near optimal/above optimal 130-159 mg/dL, Borderline high 160-189 mg/dL, High>189 mg/dL, Very highSecondary prevention optimal LDL Cholesterol levels are recommended to be <70 mg/dLLDL cholesterol is calculated using the Nice-NIH equation. Performed By: #### 2 777-1, LIPNF, 6-4, 18359-8, 38772-6, 38988-8 ####[facility] LABCLIA [id number] [address] [place] [address] [facility] LDL/HDL RATIO, NF 1.17 mg/dL Normal <2.54 [facility] Comment on above: Order Comment: Speci men Type: BLOOD SPECIMENOrdering Facility: [facility] Address: [address] [place] [address] Result Comment: Refe rence:1. National Cholesterol Education Program ATP III Guideline At-A-Glance Quick Desk Reference: National Heart, Lung, and Blood [place]. National Institutes of Health. 2001: NIH Publication No. 01-3305.2. An International Atherosclerosis Society position paper: global recommendations for the management of dyslipidemia: executive summary, Atherosclerosis. 2014: 232(2):410-413. Performed By: #### 2 777-1, LIPNF, 6-4, 26563-9, 84991-4, 21289-3 ####[facility] LABCLIA [id number] [address] [place] [address] [place] [facility] NON HDL CHOL, NF 65 mg/dL Normal <130 [facility] Comment on above: Order Comment: Speci men Type: BLOOD SPECIMENOrdering Facility: [facility] Address: [address] [place] [address] Result Comment: <130 mg/dL, Optimal 130-159 mg/dL, Near optimal/above optimal 160-189 mg/dL, Borderline high 190-219 mg/dL, High>219 mg/dL, Very highSecondary prevention optimal non HDL Cholesterol levels are recommended to be <100 mg/dL Performed By: #### 2 777-1, LIPNF, 2276-4, 81971-1, 33061-9, 00519-1 ####[facility] LABCLIA [id number] [address] [place] [address] [place] T CHOL/HDL RATIO NF 2.35 mg/dL Normal <5.10 [facility] Comment on above: Order Comment: Speci men Type: BLOOD SPECIMENOrdering Facility: [facility] Address: [address] [place] [address] Performed By: #### 2 777-1, LIPNF, 2276-4, 65417-4, 40887-6, 18925-9 ####[facility] LABCLIA [id number] [place] [address] [place] TRIGLYCERIDES, NF 33 mg/dL Normal <150 [facility] Comment on above: Order Comment: Speci men Type: BLOOD SPECIMENOrdering Facility: [facility] Address: [address] [place] [address] Result Comment: <150 mg/dL, Normal 150-199 mg/dL, Borderline high 200-499 mg/dL, High>499 mg/dL, Very high Performed By: #### 2 777-1, LIPNF, 2276-4, 89953-9, 56952-5, 26879-2 ####[facility] LABCLIA [id number] [place] [address] [place] VLDL CHOLESTEROL, NF 5 mg/dL Normal <30 [facility] Comment on above: Order Comment: Speci men Type: BLOOD SPECIMENOrdering Facility: [facility] Address: [address] [place] [address] Performed By: #### 2 777-1, LIPNF, 2276-4, 03416-3, 30213-5, 13595-9 ####[facility] LABCLIA [id number] [place] [id number] [place] Magnesium SerPl-mCncon 11-23 Magnesium [Mass/Vol] 2.7 mg/dL High 1.7-2.3 [facility] Comment on above: Order Comment: Speci men Type: BLOOD SPECIMENOrdering Facility: [facility] Address: [address] [place] [address] Performed By: #### 2 777-1, LIPNF, 2276-4, 37245-0, 90589-4, 81784-5 ####[facility] [id number] [place] [address] [place] PT panel Coag (PPP)on 2024 INR Coag (PPP) [Relative time] 1.2 {INR} Normal 0.9-1.3 [facility] Comment on above: Order Comment: Speci men Type: BLOOD SPECIMENOrdering Facility: [facility] Address: [address] [address] Result Comment: Ching min K Antagonist (VKA) Therapeutic Range: INR 2 to 3 (Target INR of 2.5)Note: For patients treated with VKA drugs, such as warfarin, the [employer] 2012 Guideline [...] al. Chest 2012, 141:7S-47SNishimanay RA, et al. [facility] 2017, 70: 252-289 Performed By: #### 3 4528-0, 69497-0 ####[facility] [id number] [address] [address] [place] PT Coag (PPP) [Time] 12.6 s Normal 9.7-13.0 [facility] Comment on above: Order Comment: Speci men Type: BLOOD SPECIMENOrdering Facility: [facility] Address: [address] [place] [address] Performed By: #### 3 4528-0, 36454-8 ####[facility] LABIA [id number] [place] [address] [place] Phosphate SerPl-mCncon 11-23 Phosphate [Mass/Vol] 10.4 mg/dL High 2.7-4.8 [facility] Comment on above: Order Comment: Speci men Type: BLOOD SPECIMENOrdering Facility: [facility] Address: [address] [place] [address] Performed By: #### 2 777-1, LIPNF, 2276-4, 57243-3, 75722-2, 55869-4 ####[facility] [id number] [place] [address] [place] STAPHYLOCOCCUS AUREUS AND MR SA SCREEN, PCR, NASALon 11-23-2024 S. aureus and MRSA panel EZEKIEL+probe (Nose) Not detected Normal Not Detected [facility] Comment on above: Order Comment: Speci men Type: SWABOrdering Facility: [facility] Address: [address] [place] [address] Performed By: #### S APCR ####[facility] [id number] [place] [address] [place] T4 Free SerPl-mCncon 025 Free T4 [Mass/Vol] 1.0 ng/dL Normal 0.9-1.7 [facility] Comment on above: Order Comment: Speci men Type: BLOOD SPECIMENOrdering Facility: [facility] Address: [address] [place] [address] Performed By: #### 1 1065-0, 3024-7, 3016-3 ####[facility] [id number] [place] [address] [place] THERAPY NTon 11-23-2024 THERAPY NT Normal [facility] TSH SerPl-aCncon 11-23-2024 TSH Qn 1.490 m[IU]/L Normal 0.270-4.200 [facility] Comment on above: Order Comment: Speci men Type: BLOOD SPECIMENOrdering Facility: [facility] Address: [address] [place], [place] [address] Performed By: #### 1 1065-0, 3024-7, 3016-3 ####[facility] LABCLIA [id number] [address] [address] [place] TYPE + SCREENon 11-23-2024 ABO A Normal [facility] Comment on above: Order Comment: Speci men Type: BLOOD SPECIMENOrdering Facility: [facility] Address: [address] [place] [address] Performed By: #### T SCR ####[facility] BANKCLIA [id number] [place] [address] [place] Rh Nom (Bld) Positive Normal [facility] Comment on above: Order Comment: Speci men Type: BLOOD SPECIMENOrdering Facility: [facility] Address: [address] [place] [address] Performed By: #### T SCR ####[facility] BLOOD BANKCLIA [id number] [place] [address] [place] TYPE AND SCREEN EXPIRATION 11/26/2024 23:59 Normal [facility] Comment on above: Order Comment: Speci men Type: BLOOD SPECIMENOrdering Facility: [facility] Address: [address] [place] [address] Performed By: #### T SCR ####[facility] BLO[facility] BANKCLIA [id number] [address] [address] [place] Urea nitrogen post dialysis [Mass/Vol]on 11-23-2024 UREA REDUCTION RATIO WITH BUNPR 67 % Normal [facility] Comment on above: Order Comment: Speci men Type: BLOOD SPECIMENOrdering Facility: [facility] Address: [address] [place] [address] Performed By: #### 1 1064-3 ####[facility] LABCLIA [id number] [place] [id number] [place] aPTT PPPon 11-23-2024 aPTT Coag (PPP) [Time] 33.5 s High 23.0-32.4 [facility] Comment on above: Order Comment: Speci men Type: BLOOD SPECIMENOrdering Facility: [facility] Address: [address] [place] [address] Performed By: #### 3 4528-0, 12360-6 ####[facility] LABCLIA [id number] [place] [id number] [place] 12 Lead EKGon 11-22-20[address] [facility] [address] [facility] Absolute lymphocyte countOrd ered By: Earl Desai on 11-22-2024 Lymphocytes Auto (Unsp spec) [#/Vol] 1.93 10*3/uL 0.83-4.51 [facility] Activated partial thrombopla stin time (aPTT) in platelet poor plasma by coagulation aOrdered By: Earl Desai on 11-22-2024 aPTT Coag (PPP) [Time] 34.7 s 24.1-36.2 [facility] Anion gap in Serum or Plasma Ordered By: Earl Desai on 11-22-2024 Anion gap [Moles/Vol] 17 mmol/L High 5-15 [facility] Automated lymphocyte count a s percentage of total leukocytesOrdered By: Earl Desai on 11-22-2024 Lymphocytes/100 WBC Auto (Unsp spec) 19.3 % 19-41 [facility] BUN/creatinine ratioOrdered By: Earl Desai on 11-22-2024 Urea nitrogen/Creatinine [Mass ratio] 12.4 mg/mg - [facility] Basic Metabolic Profile (BMP )on 11-22-2024 BUN/CRE 12.4 RATIO Normal - [facility] Comment on above: Performed By: #### L 300.4310, L300.3900, L501.4021, L100.0100, L501.5200, L500.2500, L503.7505 ####[facility] [address] [place], [address] Calcium [Mass/Vol] 8.8 mg/dL Normal 7.6-11.0 [facility] Comment on above: Performed By: #### L 300.4310, L300.3900, L501.4021, L100.0100, L501.5200, L500.2500, L503.7505 ####[facility] [address] [place], [address] Chloride [Moles/Vol] 88 mmol/L Low 98-108 [facility] Comment on above: Performed By: #### L 300.4310, L300.3900, L501.4021, L100.0100, L501.5200, L500.2500, L503.7505 ####[facility] [address] [place], [address] CO2 [Moles/Vol] 25.3 mmol/L Normal 21.0-32.0 [facility] Comment on above: Performed By: #### L 300.4310, L300.3900, L501.4021, L100.0100, L501.5200, L500.2500, L503.7505 ####[facility] [address] [place], [address] Creatinine [Mass/Vol] 6.55 mg/dL High 0.70-1.20 [facility] Comment on above: Performed By: #### L 300.4310, L300.3900, L501.4021, L100.0100, L501.5200, L500.2500, L503.7505 ####[facility] [address] [place], [address] ECRCL 8.98 ml/min Invalid Interpretation Code 50-250 [facility] Comment on above: Performed By: #### L 300.4310, L300.3900, L501.4021, L100.0100, L501.5200, L500.2500, L503.7505 ####[facility] [address] [place], [address] GAP 17 High 5-15 [facility] Comment on above: Performed By: #### L 300.4310, L300.3900, L501.4021, L100.0100, L501.5200, L500.2500, L503.7505 ####[facility] [address] [place], [address] GFR/1.73 sq M.predicted among non-blacks MDRD (S/P/Bld) [Vol rate/Area] 8 mL/min/{1.73_m2} Low >60 [facility] Comment on above: Result Comment: mL/m in/1.73m2 CKD-EPI Creatinine Equation (2020) Performed By: #### L 300.4310, L300.3900, L501.4021, L100.0100, L501.5200, L500.2500, L503.7505 ####[facility] [address] [place], [address] Glucose [Mass/Vol] 249 mg/dL High 70-99 [facility] Comment on above: Performed By: #### L 300.4310, L300.3900, L501.4021, L100.0100, L501.5200, L500.2500, L503.7505 ####[facility] [address] [place], [address] Potassium [Moles/Vol] 5.2 mmol/L High 3.3-5.1 [facility] Comment on above: Performed By: #### L 300.4310, L300.3900, L501.4021, L100.0100, L501.5200, L500.2500, L503.7505 ####[facility] [address] [place], [address] Sodium [Moles/Vol] 130 mmol/L Low 133-145 [facility] Comment on above: Performed By: #### L 300.4310, L300.3900, L501.4021, L100.0100, L501.5200, L500.2500, L503.7505 ####[facility] [address] [place], [address] Urea nitrogen [Mass/Vol] 81 mg/dL High 4-19 [facility] Comment on above: Performed By: #### L 300.4310, L300.3900, L501.4021, L100.0100, L501.5200, L500.2500, L503.7505 ####[facility] [address] [place], [address] Basophil percentageOrdered B y: Earl Desai on 11-22-2024 Basophils/100 WBC (Bld) 0.5 % 0-1 [facility] CBC W/Diff, Automatedon - Absolute Lymph 1.93 X10 3/uL Normal 0.83-4.51 [facility] Comment on above: Performed By: #### L 300.4310, L300.3900, L501.4021, L100.0100, L501.5200, L500.2500, L503.7505 ####[facility] [address] [place], [address] Absolute Neut 6.8 X10 3/uL Normal 2.0-7.7 [facility] Comment on above: Performed By: #### L 300.4310, L300.3900, L501.4021, L100.0100, L501.5200, L500.2500, L503.7505 ####[facility] [address] [place], [address] Basophils/100 WBC (Bld) 0.5 % Normal 0-1 [facility] Comment on above: Performed By: #### L 300.4310, L300.3900, L501.4021, L100.0100, L501.5200, L500.2500, L503.7505 ####[facility] [address] [place], [address] Eosinophils/100 WBC (Bld) 2.6 % Normal 0-5 [facility] Comment on above: Performed By: #### L 300.4310, L300.3900, L501.4021, L100.0100, L501.5200, L500.2500, L503.7505 ####[facility] [address] [place], [address] Erythrocyte distribution width (RBC) [Ratio] 16.4 % High 11.6-14.6 [facility] Comment on above: Performed By: #### L 300.4310, L300.3900, L501.4021, L100.0100, L501.5200, L500.2500, L503.7505 ####[facility] [address] [place], [address] Hematocrit (Bld) [Volume fraction] 34.9 % Low 40-54 [facility] Comment on above: Performed By: #### L 300.4310, L300.3900, L501.4021, L100.0100, L501.5200, L500.2500, L503.7505 ####[facility] [address] [place], [address] Hemoglobin (Bld) [Mass/Vol] 10.9 g/dL Low 13.0-16.5 [facility] Comment on above: Performed By: #### L 300.4310, L300.3900, L501.4021, L100.0100, L501.5200, L500.2500, L503.7505 ####[facility] [address] [place], [address] IG% 0.500 Normal 0.0-0.9 [facility] Comment on above: Result Comment: IG% - Immature Granulocytes (promyelocytes, myelocytes andmetamyelocytes) > 1% indicates that a LEFT SHIFT is Present. Performed By: #### L 300.4310, L300.3900, L501.4021, L100.0100, L501.5200, L500.2500, L503.7505 ####[facility] [address] [place], [address] Lymphocytes/100 WBC (Bld) 19.3 % Normal 19-41 [facility] Comment on above: Performed By: #### L 300.4310, L300.3900, L501.4021, L100.0100, L501.5200, L500.2500, L503.7505 ####[facility] [address] [place], [address] MCH (RBC) [Entitic mass] 28.2 pg Normal 27.0-32.0 [facility] Comment on above: Performed By: #### L 300.4310, L300.3900, L501.4021, L100.0100, L501.5200, L500.2500, L503.7505 ####[facility] [address] [place], [address] MCHC (RBC) [Mass/Vol] 31.2 g/dL Low 32-36 [facility] Comment on above: Performed By: #### L 300.4310, L300.3900, L501.4021, L100.0100, L501.5200, L500.2500, L503.7505 ####[facility] [address] [place], [address] MCV (RBC) [Entitic vol] 90.2 fL Normal 80-94 [facility] Comment on above: Performed By: #### L 300.4310, L300.3900, L501.4021, L100.0100, L501.5200, L500.2500, L503.7505 ####[facility] [address] [place], [address] Monocytes/100 WBC (Bld) 8.8 % Normal 0-10 [facility] Comment on above: Performed By: #### L 300.4310, L300.3900, L501.4021, L100.0100, L501.5200, L500.2500, L503.7505 ####[facility] [address] [place], [address] Neutrophils/100 WBC (Bld) 68.3 % Normal 47-70 [facility] Comment on above: Performed By: #### L 300.4310, L300.3900, L501.4021, L100.0100, L501.5200, L500.2500, L503.7505 ####[facility] [address] [place], [address] Nucleated RBC (Bld) [#/Vol] 0 10*3/uL Normal 0-5 [facility] Comment on above: Performed By: #### L 300.4310, L300.3900, L501.4021, L100.0100, L501.5200, L500.2500, L503.7505 ####[facility] [address] [place], [address] Platelet mean volume (Bld) [Entitic vol] 11.7 fL Normal 6.2-12.0 [facility] Comment on above: Performed By: #### L 300.4310, L300.3900, L501.4021, L100.0100, L501.5200, L500.2500, L503.7505 ####[facility] [address] [place], [address] Platelets (Bld) [#/Vol] 161 10*3/uL Normal 150-450 [facility] Comment on above: Performed By: #### L 300.4310, L300.3900, L501.4021, L100.0100, L501.5200, L500.2500, L503.7505 ####[facility] [address] [place], [address] RBC (Bld) [#/Vol] 3.87 10*6/uL Low 4.6-6.2 [facility] Comment on above: Performed By: #### L 300.4310, L300.3900, L501.4021, L100.0100, L501.5200, L500.2500, L503.7505 ####[facility] [address] [place], [address] RDW SD 53.6 fl High 35.1-43.9 [facility] Comment on above: Performed By: #### L 300.4310, L300.3900, L501.4021, L100.0100, L501.5200, L500.2500, L503.7505 ####[facility] [address] [place], [address] WBC (Bld) [#/Vol] 10.0 10*3/uL Normal 4.4-11.0 [facility] Comment on above: Performed By: #### L 300.4310, L300.3900, L501.4021, L100.0100, L501.5200, L500.2500, L503.7505 ####[facility] [address] [place], [address] Carbon dioxide, total [Moles /volume] in Central venous bloodOrdered By: Earl Desai on 11-22-2024 CO2 [Moles/Vol] 25.3 mmol/L 21.0-32.0 [facility] Chest 1 View (Portable)on Chest 1 View (Portable) Normal [facility] Chloride assayOrdered By: Sulaiman Desai on 11-22-2024 Chloride [Moles/Vol] 88 mmol/L Low 98-108 [facility] Emergency Department Summary on 11-22-20[address] [facility] Eosinophil percentageOrdered By: Earl Desai on 11-22-2024 Eosinophils/100 WBC (Bld) 2.6 % 0-5 [facility] Erythrocyte distribution wid th ratioOrdered By: Earl Desai on 11-22-2024 Erythrocyte distribution width (RBC) [Ratio] 16.4 % High 11.6-14.6 [facility] Erythrocyte distribution wid th standard deviationOrdered By: Earl Desai on 11-22-2024 Erythrocyte distribution width (RBC) [Ratio] 53.6 fl High 35.1-43.9 [facility] Glomerular filtration rate ( GFR) estimation/1.73 sq m using serum, plasma, or whole bOrdered By: Earlyehuda Desai on 11-22-2024 GFR/1.73 sq M.predicted among non-blacks MDRD (S/P/Bld) [Vol rate/Area] 8 mL/min/{1.73_m2} Low >60 [facility] Hematocrit Auto (Bld) [Volum e fraction]Ordered By: Earl Desai on 11-22-2024 Hematocrit (Bld) [Volume fraction] 34.9 % Low 40-54 [facility] Hemoglobin measurementOrdere d By: Earl Desai on 11-22-2024 Hemoglobin (Bld) [Mass/Vol] 10.9 g/dL Low 13.0-16.5 [facility] Immature granulocytes/100 WB C Auto (Bld)Ordered By: Earl Desai on 11-22-2024 Immature granulocytes/100 WBC (Bld) 0.500 % 0.0-0.9 [facility] L499.0042on 11-22-2024 Trop T High Sen 127 ng/L Invalid Interpretation Code <=22 [facility] Comment on above: Result Comment: Jack ical Result(s) Called at: 11-22-24 11:39 TO TAO by:??TYLER MENDENHALL Results read back by same. Performed By: #### L 499.0042 ####[facility] [address] [place], [address] L499.0043on 11-22-2024 Trop T High Sen Normal <=22 [facility] Comment on above: Result Comment: Solomon eason via OM: Ordered Performed By: #### L 499.0043 ####[facility] [address] [place], [address] L501.4021on 11-22-2024 Trop T High Sen 129 ng/L Invalid Interpretation Code <=22 [facility] Comment on above: Result Comment: Crit ical Result(s) Called at: 11/22/2024-10:17 by: Keily to Macey Steinberg.??Results read back by same. Performed By: #### L 300.4310, L300.3900, L501.4021, L100.0100, L501.5200, L500.2500, L503.7505 ####[facility] [address] [place], [address] L503.7505on 11-22-2024 Natriuretic peptide B (Bld) [Mass/Vol] 29432 pg/mL High <=1800 [facility] Comment on above: Result Comment: Hear t Failure Unlikely: < 300 pg/mLHeart Failure Likely< 50 Years: > 450 pg/mL50-75 Years: > 900 pg/mL>75 Years: > 1800 pg/mL Performed By: #### L 300.4310, L300.3900, L501.4021, L100.0100, L501.5200, L500.2500, L503.7505 ####[facility] [address] [place], [address] MCV (mean corpuscular volume ) determinationOrdered By: Earl Desai on 11-22-2024 MCV (RBC) [Entitic vol] 90.2 fL 80-94 [facility] Magnesiumon 11-22-2024 Magnesium [Mass/Vol] 2.6 mg/dL High 1.5-2.2 [facility] Comment on above: Performed By: #### L 300.4310, L300.3900, L501.4021, L100.0100, L501.5200, L500.2500, L503.7505 ####[facility] [address] [place], [place], [address] Magnesium measurement (mass/ volume)Ordered By: Earl Desai on 11-22-2024 Magnesium (Unsp spec) [Mass/Vol] 2.6 mg/dL High 1.5-2.2 [facility] Mean corpuscular hemoglobin (MCH) determinationOrdered By: Earl Desai on 11-22-2024 MCH (RBC) [Entitic mass] 28.2 pg 27.0-32.0 [facility] Monocyte percentageOrdered B y: Earl Desai on 11-22-2024 Monocytes/100 WBC (Bld) 8.8 % 0-10 [facility] Natriuretic peptide.B prohor angie N-Terminal [Mass/volume] in Serum or PlasmaOrdered By: Earl Desai on 11-22-2024 Natriuretic peptide.B prohormone N-Terminal [Mass/Vol] 59399 pg/mL High <1800 [facility] Neutrophil percentageOrdered By: Earl Desai on 11-22-2024 Neutrophils/100 WBC (Bld) 68.3 % 47-70 [facility] Partial Thromboplast Timeon 11-22-2024 aPTT Coag (Bld) [Time] 34.7 s Normal 24.1-36.2 [facility] Comment on above: Performed By: #### L 300.4310, L300.3900, L501.4021, L100.0100, L501.5200, L500.2500, L503.7505 ####[facility] [address] [place], [place], [address] Platelet countOrdered By: Sulaiman Desai on 11-22-2024 Platelets (Bld) [#/Vol] 161 10*3/uL 150-450 [facility] Potassium measurement (mass/ volume)Ordered By: Earl Desai on 11-22-2024 Potassium (Unsp spec) [Mass/Vol] 5.2 mmol/L High 3.3-5.1 [facility] Prothrombin Time w/INRon INR Coag (PPP) [Relative time] 1.3 {INR} Normal [facility] Comment on above: Performed By: #### L 300.4310, L300.3900, L501.4021, L100.0100, L501.5200, L500.2500, L503.7505 ####[facility] [address] [place], [place], [address] PT Coag (PPP) [Time] 16.5 s High 11.7-14.9 [facility] Comment on above: Performed By: #### L 300.4310, L300.3900, L501.4021, L100.0100, L501.5200, L500.2500, L503.7505 ####[facility] [address] [place], [place], [address] Prothrombin timeOrdered By: Earl Desai on 11-22-2024 PT Coag (PPP) [Time] 16.5 s High 11.7-14.9 [facility] RBC Auto (Bld) [#/Vol]Ordere d By: Earl Desai on 11-22-2024 RBC (Bld) [#/Vol] 3.87 10*6/uL Low 4.6-6.2 [facility] Serum creatinine measurement (mass/volume)Ordered By: Earl Desai on 11-22-2024 Creatinine [Mass/Vol] 6.55 mg/dL High 0.70-1.20 [facility] Serum glucose measurement (m ass/volume)Ordered By: Earl Desai on 11-22-2024 Glucose [Mass/Vol] 249 mg/dL High 70-99 [facility] Serum or plasma calcium lilli urement (mass/volume)Ordered By: Earl Desai on 11-22-2024 Calcium [Mass/Vol] 8.8 mg/dL 7.6-11.0 [facility] Serum or plasma urea nitroge n measurement (mass/volume)Ordered By: Earl Desai on 11-22-2024 Urea nitrogen [Mass/Vol] 81 mg/dL High 4-19 [facility] Sodium levelOrdered By: Earl Desai on 11-22-2024 Sodium [Moles/Vol] 130 mmol/L Low 133-145 [facility] Troponin T.cardiac [Mass/vol ume] in Serum or Plasma by High sensitivity methodOrdered By: Earl Desai on 11-22-2024 Troponin T.cardiac High sensitivity method [Mass/Vol] 127 ng/L Critically high <22 [facility] Troponin T.cardiac High sensitivity method [Mass/Vol] 129 ng/L Critically high <22 [facility] White blood cell (WBC) count Ordered By: Earl Desai on 11-22-2024 WBC (Bld) [#/Vol] 10.0 10*3/uL 4.4-11.0 [facility] Calculated very low density lipoprotein (VLDL) cholesterol measurementOrdered By: Nando Wiggins on 11-12-2024 Calculated very low density lipoprotein (VLDL) cholesterol measurement 5 mg/dL 5-40 [facility] LDL calc ser/plasOrdered By: Nando Wiggins on 11-12-2024 Cholesterol in LDL [Mass/Vol] 53 mg/dL [facility] Serum or plasma cholesterol in HDL measurement (mass/volume)Ordered By: Nando Wiggins on 11-12-2024 Cholesterol in HDL [Mass/Vol] 54 mg/dL >40 [facility] Serum or plasma cholesterol measurement (mass/volume)Ordered By: Nando Wiggins on 11-12-2024 Cholesterol [Mass/Vol] 112 mg/dL <201 [facility] Brain/Head without Contrasto n 11-08-2024 Brain/Head without Contrast Normal [facility] Emergency Department Summary on 11-08-2024 [address] [facility] Foot min 3 Viewson 5 Foot min [address] [facility] Absolute lymphocyte countOrd ered By: Nando Wiggins on 11-05-2024 Lymphocytes Auto (Unsp spec) [#/Vol] 1.94 10*3/uL 0.83-4.51 [facility] Anion gap in Serum or Plasma Ordered By: Nando Wiggins on 11-05-2024 Anion gap [Moles/Vol] 16 mmol/L High 5-15 [facility] Automated lymphocyte count a s percentage of total leukocytesOrdered By: Nando Wiggins on 11-05-2024 Lymphocytes/100 WBC Auto (Unsp spec) 25.6 % 19-41 [facility] BUN/creatinine ratioOrdered By: [place]wolf Wiggins on 11-05-2024 Urea nitrogen/Creatinine [Mass ratio] 12.4 mg/mg 10-20 [facility] Basophil percentageOrdered B y: Nando Wiggins on 11-05-2024 Basophils/100 WBC (Bld) 0.7 % 0-1 [facility] Carbon dioxide, total [Moles /volume] in Central venous bloodOrdered By: Nando Wiggins on 11-05-2024 CO2 [Moles/Vol] 24.7 mmol/L 21.0-32.0 [facility] Chloride assayOrdered By: Kathie Wiggins on 11-05-2024 Chloride [Moles/Vol] 90 mmol/L Low 98-108 [facility] Eosinophil percentageOrdered By: fili Wiggins on 11-05-2024 Eosinophils/100 WBC (Bld) 3.8 % 0-5 [facility] Erythrocyte distribution wid th ratioOrdered By: Nando Wiggins on 11-05-2024 Erythrocyte distribution width (RBC) [Ratio] 16.2 % High 11.6-14.6 [facility] Erythrocyte distribution wid th standard deviationOrdered By: Nando Wiggins on 11-05-2024 Erythrocyte distribution width (RBC) [Ratio] 52.6 fl High 35.1-43.9 [facility] Glomerular filtration rate ( GFR) estimation/1.73 sq m using serum, plasma, or whole bOrdered By: Nando Wiggins on 11-05-2024 GFR/1.73 sq M.predicted among non-blacks MDRD (S/P/Bld) [Vol rate/Area] 10 mL/min/{1.73_m2} Low >60 [facility] Hematocrit Auto (Bld) [Volum e fraction]Ordered By: Nando Wiggins on 11-05-2024 Hematocrit (Bld) [Volume fraction] 37.4 % Low 40-54 [facility] Hemoglobin measurementOrdere d By: Nando Wiggins on 11-05-2024 Hemoglobin (Bld) [Mass/Vol] 11.7 g/dL Low 13.0-16.5 [facility] Immature granulocytes/100 WB C Auto (Bld)Ordered By: Nando Wiggins on 11-05-2024 Immature granulocytes/100 WBC (Bld) 0.400 % 0.0-0.9 [facility] MCV (mean corpuscular volume ) determinationOrdered By: Nando Wiggins on 11-05-2024 MCV (RBC) [Entitic vol] 89.3 fL 80-94 [facility] Mean corpuscular hemoglobin (MCH) determinationOrdered By: biancacincinnatiwolf Wiggins on 11-05-2024 MCH (RBC) [Entitic mass] 27.9 pg 27.0-32.0 [facility] Monocyte percentageOrdered B y: Nando Wiggins on 11-05-2024 Monocytes/100 WBC (Bld) 12.3 % High 0-10 [facility] Neutrophil percentageOrdered By: fili Wiggins on 11-05-2024 Neutrophils/100 WBC (Bld) 57.2 % 47-70 [facility] Platelet countOrdered By: Kathie Wiggins on 11-05-2024 Platelets (Bld) [#/Vol] 188 10*3/uL 150-450 [facility] Potassium measurement (mass/ volume)Ordered By: Nando Wiggins on 11-05-2024 Potassium (Unsp spec) [Mass/Vol] 4.4 mmol/L 3.3-5.1 [facility] RBC Auto (Bld) [#/Vol]Ordere d By: Nando Wiggins on 11-05-2024 RBC (Bld) [#/Vol] 4.19 10*6/uL Low 4.6-6.2 [facility] Serum creatinine measurement (mass/volume)Ordered By: Nando Wiggins on 11-05-2024 Creatinine [Mass/Vol] 5.10 mg/dL High 0.70-1.20 [facility] Serum glucose measurement (m ass/volume)Ordered By: Nando Wiggins on 11-05-2024 Glucose [Mass/Vol] 81 mg/dL 70-99 [facility] Serum or plasma calcium lilli urement (mass/volume)Ordered By: Nando Edenlakshmidesiree on 11-05-2024 Calcium [Mass/Vol] 9.1 mg/dL 7.6-11.0 [facility] Serum or plasma urea nitroge n measurement (mass/volume)Ordered By: Nando Wiggins on 11-05-2024 Urea nitrogen [Mass/Vol] 63 mg/dL High 4-19 [facility] Sodium levelOrdered By: Deb lilian Rosalie on 11-05-2024 Sodium [Moles/Vol] 131 mmol/L Low 133-145 [facility] White blood cell (WBC) count Ordered By: Nando Wiggins on 11-05-2024 WBC (Bld) [#/Vol] 7.6 10*3/uL 4.4-11.0 [facility] Absolute lymphocyte countOrd ered By: Nando Wiggins on 10-29-2024 Lymphocytes Auto (Unsp spec) [#/Vol] 2.20 10*3/uL 0.83-4.51 [facility] Anion gap in Serum or Plasma Ordered By: Nando Wiggins on 10-29-2024 Anion gap [Moles/Vol] 16 mmol/L High 5-15 [facility] Automated lymphocyte count a s percentage of total leukocytesOrdered By: Nando Wiggins on 10-29-2024 Lymphocytes/100 WBC Auto (Unsp spec) 27.2 % 19-41 [facility] BUN/creatinine ratioOrdered By: Nando Edenlakshmidesiree on 10-29-2024 Urea nitrogen/Creatinine [Mass ratio] 9.4 mg/mg Low 10-20 [facility] Basophil percentageOrdered B y: Nando Wiggins on 10-29-2024 Basophils/100 WBC (Bld) 0.9 % 0-[address] [facility] Carbon dioxide, total [Moles /volume] in Central venous bloodOrdered By: Nando Wiggins on 10-29-2024 CO2 [Moles/Vol] 25.6 mmol/L 21.0-32.0 [facility] Cardiology Visit Reporton Cardiology Visit Report Normal [facility] Chloride assayOrdered By: Kathie Wiggins on 10-29-2024 Chloride [Moles/Vol] 93 mmol/L Low 98-108 [facility] Eosinophil percentageOrdered By: Nando Wiggins on 10-29-2024 Eosinophils/100 WBC (Bld) 4.8 % 0-5 [facility] Erythrocyte distribution wid th ratioOrdered By: Nando Wiggins on 10-29-2024 Erythrocyte distribution width (RBC) [Ratio] 16.9 % High 11.6-14.6 [facility] Erythrocyte distribution wid th standard deviationOrdered By: Nando Wiggins on 10-29-2024 Erythrocyte distribution width (RBC) [Ratio] 53.9 fl High 35.1-43.9 [facility] Glomerular filtration rate ( GFR) estimation/1.73 sq m using serum, plasma, or whole bOrdered By: Nando Wiggins on 10-29-2024 GFR/1.73 sq M.predicted among non-blacks MDRD (S/P/Bld) [Vol rate/Area] 9 mL/min/{1.73_m2} Low >60 [facility] Hematocrit Auto (Bld) [Volum e fraction]Ordered By: Nando Wiggins on 10-29-2024 Hematocrit (Bld) [Volume fraction] 37.8 % Low 40-54 [facility] Hemoglobin measurementOrdere d By: Nando Wiggins on 10-29-2024 Hemoglobin (Bld) [Mass/Vol] 11.6 g/dL Low 13.0-16.5 [facility] Immature granulocytes/100 WB C Auto (Bld)Ordered By: Nando Wiggins on 10-29-2024 Immature granulocytes/100 WBC (Bld) 0.200 % 0.0-0.9 [facility] MCV (mean corpuscular volume ) determinationOrdered By: Nando Wiggins on 10-29-2024 MCV (RBC) [Entitic vol] 89.2 fL 80-94 [facility] Mean corpuscular hemoglobin (MCH) determinationOrdered By: Nando Wiggins on 10-29-2024 MCH (RBC) [Entitic mass] 27.4 pg 27.0-32.0 [facility] Monocyte percentageOrdered B y: Nando Wiggins on 10-29-2024 Monocytes/100 WBC (Bld) 11.1 % High 0-10 [facility] Neutrophil percentageOrdered By: Nando Wiggins on 10-29-2024 Neutrophils/100 WBC (Bld) 55.8 % 47-70 [facility] Platelet countOrdered By: Kathie Wiggins on 10-29-2024 Platelets (Bld) [#/Vol] 219 10*3/uL 150-450 [facility] Potassium measurement (mass/ volume)Ordered By: Nando Wiggins on 10-29-2024 Potassium (Unsp spec) [Mass/Vol] 4.4 mmol/L 3.3-5.1 [facility] RBC Auto (Bld) [#/Vol]Ordere d By: Nando Wiggins on 10-29-2024 RBC (Bld) [#/Vol] 4.24 10*6/uL Low 4.6-6.2 [facility] Serum creatinine measurement (mass/volume)Ordered By: Nando Wiggins on 10-29-2024 Creatinine [Mass/Vol] 5.65 mg/dL High 0.70-1.20 [facility] Serum glucose measurement (m ass/volume)Ordered By: Nando Wiggins on 10-29-2024 Glucose [Mass/Vol] 86 mg/dL 70-99 [facility] Serum or plasma calcium lilli urement (mass/volume)Ordered By: Nando Wiggins on 10-29-2024 Calcium [Mass/Vol] 9.5 mg/dL 7.6-11.0 [facility] Serum or plasma urea nitroge n measurement (mass/volume)Ordered By: Nando Wiggins on 10-29-2024 Urea nitrogen [Mass/Vol] 53 mg/dL High 4-19 [facility] Sodium levelOrdered By: Deb lilian Rosalie on 10-29-2024 Sodium [Moles/Vol] 135 mmol/L 133-145 [facility] White blood cell (WBC) count Ordered By: Nando Wiggins on 10-29-2024 WBC (Bld) [#/Vol] 8.1 10*3/uL 4.4-11.0 [facility] Absolute lymphocyte countOrd ered By: Nando Wiggins on 10-22-2024 Lymphocytes Auto (Unsp spec) [#/Vol] 1.76 10*3/uL 0.83-4.51 [facility] Anion gap in Serum or Plasma Ordered By: Nando Wiggins on 10-22-2024 Anion gap [Moles/Vol] 16 mmol/L High 5-15 [facility] Automated lymphocyte count a s percentage of total leukocytesOrdered By: Nando Wiggins on 10-22-2024 Lymphocytes/100 WBC Auto (Unsp spec) 19.8 % 19-41 [facility] BUN/creatinine ratioOrdered By: Nando Wiggins on 10-22-2024 Urea nitrogen/Creatinine [Mass ratio] 12.2 mg/mg 10-20 [facility] Basophil percentageOrdered B y: Nando Edenlakshmidesiree on 10-22-2024 Basophils/100 WBC (Bld) 0.6 % 0-1 [facility] Carbon dioxide, total [Moles /volume] in Central venous bloodOrdered By: Nando Wiggins on 10-22-2024 CO2 [Moles/Vol] 27.2 mmol/L 21.0-32.0 [facility] Chloride assayOrdered By: Kathie Wiggins on 10-22-2024 Chloride [Moles/Vol] 91 mmol/L Low 98-108 [facility] Eosinophil percentageOrdered By: Nando Wiggins on 10-22-2024 Eosinophils/100 WBC (Bld) 3.0 % 0-5 [facility] Erythrocyte distribution wid th ratioOrdered By: Nando Wiggins on 10-22-2024 Erythrocyte distribution width (RBC) [Ratio] 15.9 % High 11.6-14.6 [facility] Erythrocyte distribution wid th standard deviationOrdered By: Nando Wiggins on 10-22-2024 Erythrocyte distribution width (RBC) [Ratio] 53.1 fl High 35.1-43.9 [facility] Glomerular filtration rate ( GFR) estimation/1.73 sq m using serum, plasma, or whole bOrdered By: Nando Wiggins on 10-22-2024 GFR/1.73 sq M.predicted among non-blacks MDRD (S/P/Bld) [Vol rate/Area] 12 mL/min/{1.73_m2} Low >60 [facility] Hematocrit Auto (Bld) [Volum e fraction]Ordered By: Nando Wiggins on 10-22-2024 Hematocrit (Bld) [Volume fraction] 35.6 % Low 40-54 [facility] Hemoglobin measurementOrdere d By: Nando Wiggins on 10-22-2024 Hemoglobin (Bld) [Mass/Vol] 10.7 g/dL Low 13.0-16.5 [facility] Immature granulocytes/100 WB C Auto (Bld)Ordered By: Nando Wiggins on 10-22-2024 Immature granulocytes/100 WBC (Bld) 0.400 % 0.0-0.9 [facility] MCV (mean corpuscular volume ) determinationOrdered By: Nando Wiggins on 10-22-2024 MCV (RBC) [Entitic vol] 90.6 fL 80-94 [facility] Mean corpuscular hemoglobin (MCH) determinationOrdered By: Nando Wiggins on 10-22-2024 MCH (RBC) [Entitic mass] 27.2 pg 27.0-32.0 [facility] Monocyte percentageOrdered B y: Nando Wiggins on 10-22-2024 Monocytes/100 WBC (Bld) 10.1 % High 0-10 [facility] Neutrophil percentageOrdered By: Nando Wiggins on 10-22-2024 Neutrophils/100 WBC (Bld) 66.1 % 47-70 [facility] Platelet countOrdered By: Kathie Wiggins on 10-22-2024 Platelets (Bld) [#/Vol] 167 10*3/uL 150-450 [facility] Potassium measurement (mass/ volume)Ordered By: Nando Wiggins on 10-22-2024 Potassium (Unsp spec) [Mass/Vol] 4.1 mmol/L 3.3-5.1 [facility] RBC Auto (Bld) [#/Vol]Ordere d By: Nando Wiggins on 10-22-2024 RBC (Bld) [#/Vol] 3.93 10*6/uL Low 4.6-6.2 [facility] Serum creatinine measurement (mass/volume)Ordered By: Nando Wiggins on 10-22-2024 Creatinine [Mass/Vol] 4.58 mg/dL High 0.70-1.20 [facility] Serum glucose measurement (m ass/volume)Ordered By: Nando Wiggins on 10-22-2024 Glucose [Mass/Vol] 131 mg/dL High 70-99 [facility] Serum or plasma calcium lilli urement (mass/volume)Ordered By: Nando Wiggins on 10-22-2024 Calcium [Mass/Vol] 9.1 mg/dL 7.6-11.0 [facility] Serum or plasma urea nitroge n measurement (mass/volume)Ordered By: Nando Wiggins on 10-22-2024 Urea nitrogen [Mass/Vol] 56 mg/dL High 4-19 [facility] Sodium levelOrdered By: Deb Wiggins on 10-22-2024 Sodium [Moles/Vol] 134 mmol/L 133-145 [facility] White blood cell (WBC) count Ordered By: Nando Wiggins on 10-22-2024 WBC (Bld) [#/Vol] 8.9 10*3/uL 4.4-11.0 [facility] Surgery Visit Reporton 10-17 Surgery Visit Report Normal [facility] Absolute lymphocyte countOrd ered By: Nando Wiggins on 10-16-2024 Lymphocytes Auto (Unsp spec) [#/Vol] 1.40 10*3/uL 0.83-4.51 [facility] Anion gap in Serum or Plasma Ordered By: Nando Wiggins on 10-16-2024 Anion gap [Moles/Vol] 14 mmol/L 5-15 [facility] Automated lymphocyte count a s percentage of total leukocytesOrdered By: Nando Wiggins on 10-16-2024 Lymphocytes/100 WBC Auto (Unsp spec) 15.9 % Low 19-41 [facility] BUN/creatinine ratioOrdered By: biancacincinnatiwolf Wiggins on 10-16-2024 Urea nitrogen/Creatinine [Mass ratio] 13.8 mg/mg 10-20 [facility] Basophil percentageOrdered B y: Debcincinnatiwolf Wiggins on 10-16-2024 Basophils/100 WBC (Bld) 0.7 % 0-1 [facility] Carbon dioxide, total [Moles /volume] in Central venous bloodOrdered By: Memorial Satilla Healthwolf Wiggins on 10-16-2024 CO2 [Moles/Vol] 27.7 mmol/L 21.0-32.0 [facility] Chloride assayOrdered By: Kathie Wiggins on 10-16-2024 Chloride [Moles/Vol] 93 mmol/L Low 98-108 [facility] Eosinophil percentageOrdered By: biancacincinnatiwolf Wiggins on 10-16-2024 Eosinophils/100 WBC (Bld) 2.7 % 0-5 [facility] Erythrocyte distribution wid th ratioOrdered By: biancacincinnatiwolf Wiggins on 10-16-2024 Erythrocyte distribution width (RBC) [Ratio] 15.8 % High 11.6-14.6 [facility] Erythrocyte distribution wid th standard deviationOrdered By: biancacincinnatiwolf Wiggins on 10-16-2024 Erythrocyte distribution width (RBC) [Ratio] 52.2 fl High 35.1-43.9 [facility] Glomerular filtration rate ( GFR) estimation/1.73 sq m using serum, plasma, or whole bOrdered By: Nando Wiggins on 10-16-2024 GFR/1.73 sq M.predicted among non-blacks MDRD (S/P/Bld) [Vol rate/Area] 9 mL/min/{1.73_m2} Low >60 [facility] Hematocrit Auto (Bld) [Volum e fraction]Ordered By: Nando Wiggins on 10-16-2024 Hematocrit (Bld) [Volume fraction] 34.0 % Low 40-54 [facility] Hemoglobin measurementOrdere d By: Debsrinathwolf Edenlakshmidesiree on 10-16-2024 Hemoglobin (Bld) [Mass/Vol] 10.4 g/dL Low 13.0-16.5 [facility] Immature granulocytes/100 WB C Auto (Bld)Ordered By: Nando Wiggins on 10-16-2024 Immature granulocytes/100 WBC (Bld) 0.300 % 0.0-0.9 [facility] MCV (mean corpuscular volume ) determinationOrdered By: Nando Wiggins on 10-16-2024 MCV (RBC) [Entitic vol] 90.2 fL 80-94 [facility] Mean corpuscular hemoglobin (MCH) determinationOrdered By: Nando Wiggins on 10-16-2024 MCH (RBC) [Entitic mass] 27.6 pg 27.0-32.0 [facility] Monocyte percentageOrdered B y: Nando Wiggins on 10-16-2024 Monocytes/100 WBC (Bld) 9.3 % 0-10 [facility] Neutrophil percentageOrdered By: biancarsinathwolf Edenlakshmidesiree on 10-16-2024 Neutrophils/100 WBC (Bld) 71.1 % High 47-70 [facility] Platelet countOrdered By: Kathie rehanwolf Edenlakshmidesiree on 10-16-2024 Platelets (Bld) [#/Vol] 152 10*3/uL 150-450 [facility] Potassium measurement (mass/ volume)Ordered By: Nando Wiggins on 10-16-2024 Potassium (Unsp spec) [Mass/Vol] 4.6 mmol/L 3.3-5.1 [facility] RBC Auto (Bld) [#/Vol]Ordere d By: Nando Wiggins on 10-16-2024 RBC (Bld) [#/Vol] 3.77 10*6/uL Low 4.6-6.2 [facility] Serum creatinine measurement (mass/volume)Ordered By: Nando Wiggins on 10-16-2024 Creatinine [Mass/Vol] 5.65 mg/dL High 0.70-1.20 [facility] Serum glucose measurement (m ass/volume)Ordered By: Kathiefili Wiggins on 10-16-2024 Glucose [Mass/Vol] 169 mg/dL High 70-99 [facility] Serum or plasma calcium lilli urement (mass/volume)Ordered By: Nando Wiggins on 10-16-2024 Calcium [Mass/Vol] 8.9 mg/dL 7.6-11.0 [facility] Serum or plasma urea nitroge n measurement (mass/volume)Ordered By: Nando Wiggins on 10-16-2024 Urea nitrogen [Mass/Vol] 78 mg/dL High 4-19 [facility] Sodium levelOrdered By: Deb lilian Meeklakshmidesiree on 10-16-2024 Sodium [Moles/Vol] 135 mmol/L 133-145 [facility] White blood cell (WBC) count Ordered By: Nando Wiggins on 10-16-2024 WBC (Bld) [#/Vol] 8.8 10*3/uL 4.4-11.0 [facility] Absolute lymphocyte countOrd ered By: Nando Wiggins on 10-08-2024 Lymphocytes Auto (Unsp spec) [#/Vol] 1.87 10*3/uL 0.83-4.51 [facility] Anion gap in Serum or Plasma Ordered By: Nando Wiggins on 10-08-2024 Anion gap [Moles/Vol] 13 mmol/L 5-15 [facility] Automated lymphocyte count a s percentage of total leukocytesOrdered By: Nando Wiggins on 10-08-2024 Lymphocytes/100 WBC Auto (Unsp spec) 27.5 % - [facility] BUN/creatinine ratioOrdered By: Nando Wiggins on 10-08-2024 Urea nitrogen/Creatinine [Mass ratio] 13.2 mg/mg 10-20 [facility] Basophil percentageOrdered B y: Nando Wiggins on 10-08-2024 Basophils/100 WBC (Bld) 1.0 % 0-1 [facility] Carbon dioxide, total [Moles /volume] in Central venous bloodOrdered By: Nando Wiggins on 10-08-2024 CO2 [Moles/Vol] 26.7 mmol/L 21.0-32.0 [facility] Chloride assayOrdered By: Kathie Wiggins on 10-08-2024 Chloride [Moles/Vol] 95 mmol/L Low 98-108 [facility] Eosinophil percentageOrdered By: Nando Wiggins on 10-08-2024 Eosinophils/100 WBC (Bld) 2.9 % 0-5 [facility] Erythrocyte distribution wid th ratioOrdered By: Nando Wiggins on 10-08-2024 Erythrocyte distribution width (RBC) [Ratio] 16.0 % High 11.6-14.6 [facility] Erythrocyte distribution wid th standard deviationOrdered By: Nando Wiggins on 10-08-2024 Erythrocyte distribution width (RBC) [Ratio] 54.2 fl High 35.1-43.9 [facility] Glomerular filtration rate ( GFR) estimation/1.73 sq m using serum, plasma, or whole bOrdered By: Nando Wiggins on 10-08-2024 GFR/1.73 sq M.predicted among non-blacks MDRD (S/P/Bld) [Vol rate/Area] 12 mL/min/{1.73_m2} Low >60 [facility] Hematocrit Auto (Bld) [Volum e fraction]Ordered By: Nando Wiggins on 10-08-2024 Hematocrit (Bld) [Volume fraction] 35.5 % Low 40-54 [facility] Hemoglobin measurementOrdere d By: Nando Wiggins on 10-08-2024 Hemoglobin (Bld) [Mass/Vol] 10.7 g/dL Low 13.0-16.5 [facility] Immature granulocytes/100 WB C Auto (Bld)Ordered By: Nando Wiggins on 10-08-2024 Immature granulocytes/100 WBC (Bld) 0.400 % 0.0-0.9 [facility] MCV (mean corpuscular volume ) determinationOrdered By: Nando Wiggins on 10-08-2024 MCV (RBC) [Entitic vol] 91.0 fL 80-94 [facility] Mean corpuscular hemoglobin (MCH) determinationOrdered By: Nando Wiggins on 10-08-2024 MCH (RBC) [Entitic mass] 27.4 pg 27.0-32.0 [facility] Monocyte percentageOrdered B y: Nando Wiggins on 10-08-2024 Monocytes/100 WBC (Bld) 8.2 % 0-10 [facility] Neutrophil percentageOrdered By: Kathiefili Wiggins on 10-08-2024 Neutrophils/100 WBC (Bld) 60.0 % 47-70 [facility] Platelet countOrdered By: Kathie rehanwolf Wiggins on 10-08-2024 Platelets (Bld) [#/Vol] 164 10*3/uL 150-450 [facility] Potassium measurement (mass/ volume)Ordered By: Nando Wiggins on 10-08-2024 Potassium (Unsp spec) [Mass/Vol] 4.1 mmol/L 3.3-5.1 [facility] RBC Auto (Bld) [#/Vol]Ordere d By: Debsrinathwolf Wiggins on 10-08-2024 RBC (Bld) [#/Vol] 3.90 10*6/uL Low 4.6-6.2 [facility] Serum creatinine measurement (mass/volume)Ordered By: Nando Wiggins on 10-08-2024 Creatinine [Mass/Vol] 4.42 mg/dL High 0.70-1.20 [facility] Serum glucose measurement (m ass/volume)Ordered By: Nando Wiggins on 10-08-2024 Glucose [Mass/Vol] 177 mg/dL High 70-99 [facility] Serum or plasma calcium lilli urement (mass/volume)Ordered By: Nando Wiggins on 10-08-2024 Calcium [Mass/Vol] 9.2 mg/dL 7.6-11.0 [facility] Serum or plasma urea nitroge n measurement (mass/volume)Ordered By: Nando Wiggins on 10-08-2024 Urea nitrogen [Mass/Vol] 59 mg/dL High 4-19 [facility] Sodium levelOrdered By: Deb lilian Rosalie on 10-08-2024 Sodium [Moles/Vol] 135 mmol/L 133-145 [facility] White blood cell (WBC) count Ordered By: Nando Wiggins on 10-08-2024 WBC (Bld) [#/Vol] 6.8 10*3/uL 4.4-11.0 [facility] Surgery Visit Reporton 10-03 Surgery Visit Report Normal [facility] Absolute lymphocyte countOrd ered By: Nando Wiggins on 10-02-2024 Lymphocytes Auto (Unsp spec) [#/Vol] 1.76 10*3/uL 0.83-4.51 [facility] Anion gap in Serum or Plasma Ordered By: Nando Wiggins on 10-02-2024 Anion gap [Moles/Vol] 14 mmol/L 5-15 [facility] Automated lymphocyte count a s percentage of total leukocytesOrdered By: Nando Wiggins on 10-02-2024 Lymphocytes/100 WBC Auto (Unsp spec) 25.6 % 19-41 [facility] BUN/creatinine ratioOrdered By: Nando Wiggins on 10-02-2024 Urea nitrogen/Creatinine [Mass ratio] 17.4 mg/mg 10-20 [facility] Basophil percentageOrdered B y: Nando Wiggins on 10-02-2024 Basophils/100 WBC (Bld) 1.0 % 0-[address] [facility] Carbon dioxide, total [Moles /volume] in Central venous bloodOrdered By: Nando Wiggins on 10-02-2024 CO2 [Moles/Vol] 26.5 mmol/L 21.0-32.0 [facility] Chloride assayOrdered By: Kathie Wiggins on 10-02-2024 Chloride [Moles/Vol] 90 mmol/L Low 98-108 [facility] Eosinophil percentageOrdered By: Nando Wiggins on 10-02-2024 Eosinophils/100 WBC (Bld) 2.5 % 0-5 [facility] Erythrocyte distribution wid th ratioOrdered By: Nando Wiggins on 10-02-2024 Erythrocyte distribution width (RBC) [Ratio] 16.2 % High 11.6-14.6 [facility] Erythrocyte distribution wid th standard deviationOrdered By: Nando Wiggins on 10-02-2024 Erythrocyte distribution width (RBC) [Ratio] 54.6 fl High 35.1-43.9 [facility] Glomerular filtration rate ( GFR) estimation/1.73 sq m using serum, plasma, or whole bOrdered By: Nando Wiggins on 10-02-2024 GFR/1.73 sq M.predicted among non-blacks MDRD (S/P/Bld) [Vol rate/Area] 10 mL/min/{1.73_m2} Low >60 [facility] Hematocrit Auto (Bld) [Volum e fraction]Ordered By: Nando Wiggins on 10-02-2024 Hematocrit (Bld) [Volume fraction] 35.1 % Low 40-54 [facility] Hemoglobin measurementOrdere d By: Nando Wiggins on 10-02-2024 Hemoglobin (Bld) [Mass/Vol] 10.5 g/dL Low 13.0-16.5 [facility] Immature granulocytes/100 WB C Auto (Bld)Ordered By: Nando Wiggins on 10-02-2024 Immature granulocytes/100 WBC (Bld) 0.300 % 0.0-0.9 [facility] MCV (mean corpuscular volume ) determinationOrdered By: Nando Wiggins on 10-02-2024 MCV (RBC) [Entitic vol] 91.4 fL 80-94 [facility] Mean corpuscular hemoglobin (MCH) determinationOrdered By: Nando Wiggins on 10-02-2024 MCH (RBC) [Entitic mass] 27.3 pg 27.0-32.0 [facility] Monocyte percentageOrdered B y: Nando Wiggins on 10-02-2024 Monocytes/100 WBC (Bld) 10.5 % High 0-10 [facility] Neutrophil percentageOrdered By: Nando Wiggins on 10-02-2024 Neutrophils/100 WBC (Bld) 60.1 % 47-70 [facility] Platelet countOrdered By: Kathie Edenlakshmidesiree on 10-02-2024 Platelets (Bld) [#/Vol] 158 10*3/uL 150-450 [facility] Potassium measurement (mass/ volume)Ordered By: Kathiebiancasrinathwolf Edenlakshmidesiree on 10-02-2024 Potassium (Unsp spec) [Mass/Vol] 4.3 mmol/L 3.3-5.1 [facility] RBC Auto (Bld) [#/Vol]Ordere d By: Deblilian Meekcheko on 10-02-2024 RBC (Bld) [#/Vol] 3.84 10*6/uL Low 4.6-6.2 [facility] Serum creatinine measurement (mass/volume)Ordered By: Debsrinathwolf Edenlakshmidesiree on 10-02-2024 Creatinine [Mass/Vol] 5.22 mg/dL High 0.70-1.20 [facility] Serum glucose measurement (m ass/volume)Ordered By: Nando Wiggins on 10-02-2024 Glucose [Mass/Vol] 346 mg/dL High 70-99 [facility] Serum or plasma calcium lilli urement (mass/volume)Ordered By: Kathiebiancalilian Meeklakshmidesiree on 10-02-2024 Calcium [Mass/Vol] 9.0 mg/dL 7.6-11.0 [facility] Serum or plasma urea nitroge n measurement (mass/volume)Ordered By: Nando Edenlakshmidesiree on 10-02-2024 Urea nitrogen [Mass/Vol] 91 mg/dL High 4-19 [facility] Sodium levelOrdered By: Kathiebianca lilian Rosalie on 10-02-2024 Sodium [Moles/Vol] 131 mmol/L Low 133-145 [facility] White blood cell (WBC) count Ordered By: Kathiebiancasrinathwolf Edenlakshmidesiree on 10-02-2024 WBC (Bld) [#/Vol] 6.9 10*3/uL 4.4-11.0 [facility] Absolute lymphocyte countOrd ered By: Kathiebiancasrinathwolf Edenlakshmidesiree on 09-24-2024 Lymphocytes Auto (Unsp spec) [#/Vol] 1.75 10*3/uL 0.83-4.51 [facility] Anion gap in Serum or Plasma Ordered By: Nando Wiggins on 09-24-2024 Anion gap [Moles/Vol] 14 mmol/L 5-15 [facility] Automated lymphocyte count a s percentage of total leukocytesOrdered By: Nando Wiggins on 09-24-2024 Lymphocytes/100 WBC Auto (Unsp spec) 25.8 % 19-41 [facility] BUN/creatinine ratioOrdered By: Nando Wiggins on 09-24-2024 Urea nitrogen/Creatinine [Mass ratio] 12.6 mg/mg 10-20 [facility] Basophil percentageOrdered B y: Nando Wiggins on 09-24-2024 Basophils/100 WBC (Bld) 0.7 % 0-1 [facility] Carbon dioxide, total [Moles /volume] in Central venous bloodOrdered By: Nando Wiggins on 09-24-2024 CO2 [Moles/Vol] 26.2 mmol/L 21.0-32.0 [facility] Chloride assayOrdered By: Kathie Wiggins on 09-24-2024 Chloride [Moles/Vol] 93 mmol/L Low 98-108 [facility] Eosinophil percentageOrdered By: Nando Wiggins on 09-24-2024 Eosinophils/100 WBC (Bld) 2.7 % 0-5 [facility] Erythrocyte distribution wid th ratioOrdered By: Nando Wiggins on 09-24-2024 Erythrocyte distribution width (RBC) [Ratio] 17.2 % High 11.6-14.6 [facility] Erythrocyte distribution wid th standard deviationOrdered By: Nando Wiggins on 09-24-2024 Erythrocyte distribution width (RBC) [Ratio] 58.0 fl High 35.1-43.9 [facility] Glomerular filtration rate ( GFR) estimation/1.73 sq m using serum, plasma, or whole bOrdered By: Nando Wiggins on 09-24-2024 GFR/1.73 sq M.predicted among non-blacks MDRD (S/P/Bld) [Vol rate/Area] 13 mL/min/{1.73_m2} Low >60 [facility] Hematocrit Auto (Bld) [Volum e fraction]Ordered By: Nando Wiggins on 09-24-2024 Hematocrit (Bld) [Volume fraction] 34.6 % Low 40-54 [facility] Hemoglobin measurementOrdere d By: Debsrinathwolf Wiggins on 09-24-2024 Hemoglobin (Bld) [Mass/Vol] 10.3 g/dL Low 13.0-16.5 [facility] Immature granulocytes/100 WB C Auto (Bld)Ordered By: Nando Wiggins on 09-24-2024 Immature granulocytes/100 WBC (Bld) 0.400 % 0.0-0.9 [facility] MCV (mean corpuscular volume ) determinationOrdered By: Nando Wiggins on 09-24-2024 MCV (RBC) [Entitic vol] 90.8 fL 80-94 [facility] Mean corpuscular hemoglobin (MCH) determinationOrdered By: fili Wiggins on 09-24-2024 MCH (RBC) [Entitic mass] 27.0 pg 27.0-32.0 [facility] Monocyte percentageOrdered B y: Nando Wiggins on 09-24-2024 Monocytes/100 WBC (Bld) 11.8 % High 0-10 [facility] Neutrophil percentageOrdered By: biancacincinnatiwolf Wiggins on 09-24-2024 Neutrophils/100 WBC (Bld) 58.6 % 47-70 [facility] Platelet countOrdered By: Kathie biancalilian Wiggins on 09-24-2024 Platelets (Bld) [#/Vol] 209 10*3/uL 150-450 [facility] Potassium measurement (mass/ volume)Ordered By: Nando Wiggins on 09-24-2024 Potassium (Unsp spec) [Mass/Vol] 3.4 mmol/L 3.3-5.1 [facility] RBC Auto (Bld) [#/Vol]Ordere d By: Nando Wiggins on 09-24-2024 RBC (Bld) [#/Vol] 3.81 10*6/uL Low 4.6-6.2 [facility] Serum creatinine measurement (mass/volume)Ordered By: Nando Wiggins on 09-24-2024 Creatinine [Mass/Vol] 4.34 mg/dL High 0.70-1.20 [facility] Serum glucose measurement (m ass/volume)Ordered By: Nando Wiggins on 09-24-2024 Glucose [Mass/Vol] 241 mg/dL High 70-99 [facility] Serum or plasma calcium lilli urement (mass/volume)Ordered By: Nando Wiggins on 09-24-2024 Calcium [Mass/Vol] 9.0 mg/dL 7.6-11.0 [facility] Serum or plasma urea nitroge n measurement (mass/volume)Ordered By: Nando Wiggins on 09-24-2024 Urea nitrogen [Mass/Vol] 55 mg/dL High 4-19 [facility] Sodium levelOrdered By: Deb Wiggins on 09-24-2024 Sodium [Moles/Vol] 134 mmol/L 133-145 [facility] White blood cell (WBC) count Ordered By: Nando Wiggins on 09-24-2024 WBC (Bld) [#/Vol] 6.8 10*3/uL 4.4-11.0 [facility] Absolute lymphocyte countOrd ered By: Nando Wiggins on 09-17-2024 Lymphocytes Auto (Unsp spec) [#/Vol] 1.93 10*3/uL 0.83-4.51 [facility] Anion gap in Serum or Plasma Ordered By: Nando Wiggins on 09-17-2024 Anion gap [Moles/Vol] 13 mmol/L 5-15 [facility] Automated lymphocyte count a s percentage of total leukocytesOrdered By: Nando Wiggins on 09-17-2024 Lymphocytes/100 WBC Auto (Unsp spec) 18.7 % Low 19-41 [facility] BUN/creatinine ratioOrdered By: Nando Wiggins on 09-17-2024 Urea nitrogen/Creatinine [Mass ratio] 12.3 mg/mg 10-20 [facility] Basophil percentageOrdered B y: Nando Wiggins on 09-17-2024 Basophils/100 WBC (Bld) 0.7 % 0-1 [facility] Carbon dioxide, total [Moles /volume] in Central venous bloodOrdered By: Nando Wiggins on 09-17-2024 CO2 [Moles/Vol] 27.5 mmol/L 21.0-32.0 [facility] Chloride assayOrdered By: Kathie Wiggins on 09-17-2024 Chloride [Moles/Vol] 93 mmol/L Low 98-108 [facility] Eosinophil percentageOrdered By: Nando Wiggins 09-17-2024 Eosinophils/100 WBC (Bld) 2.3 % 0-5 [facility] Erythrocyte distribution wid th ratioOrdered By: Memorial Satilla Healthwolf Wiggins 09-17-2024 Erythrocyte distribution width (RBC) [Ratio] 17.6 % High 11.6-14.6 [facility] Erythrocyte distribution wid th standard deviationOrdered By: biancacincinnatiwolf Wiggins 09-17-2024 Erythrocyte distribution width (RBC) [Ratio] 59.3 fl High 35.1-43.9 [facility] Glomerular filtration rate ( GFR) estimation/1.73 sq m using serum, plasma, or whole bOrdered By: fili Wiggins 09-17-2024 GFR/1.73 sq M.predicted among non-blacks MDRD (S/P/Bld) [Vol rate/Area] 13 mL/min/{1.73_m2} Low >60 [facility] Hematocrit Auto (Bld) [Volum e fraction]Ordered By: Nando Wiggins 09-17-2024 Hematocrit (Bld) [Volume fraction] 32.9 % Low 40-54 [facility] Hemoglobin measurementOrdere d By: Nando Wiggins 09-17-2024 Hemoglobin (Bld) [Mass/Vol] 9.7 g/dL Low 13.0-16.5 [facility] Immature granulocytes/100 WB C Auto (Bld)Ordered By: Nando Wiggins 09-17-2024 Immature granulocytes/100 WBC (Bld) 0.400 % 0.0-0.9 [facility] MCV (mean corpuscular volume ) determinationOrdered By: Nando Wiggins 09-17-2024 MCV (RBC) [Entitic vol] 91.9 fL 80-94 [facility] Mean corpuscular hemoglobin (MCH) determinationOrdered By: Kathiebiancasrinathwolf Edencheko on 09-17-2024 MCH (RBC) [Entitic mass] 27.1 pg 27.0-32.0 [facility] Monocyte percentageOrdered B y: Nando Meekcheko on 09-17-2024 Monocytes/100 WBC (Bld) 10.2 % High 0-10 [facility] Neutrophil percentageOrdered By: Nando Meekcheko on 09-17-2024 Neutrophils/100 WBC (Bld) 67.7 % 47-70 [facility] Platelet countOrdered By: Kathie fili Meekcheko on 09-17-2024 Platelets (Bld) [#/Vol] 275 10*3/uL 150-450 [facility] Potassium measurement (mass/ volume)Ordered By: Nando Wiggins on 09-17-2024 Potassium (Unsp spec) [Mass/Vol] 3.3 mmol/L 3.3-5.1 [facility] RBC Auto (Bld) [#/Vol]Ordere d By: Nando Meekcheko on 09-17-2024 RBC (Bld) [#/Vol] 3.58 10*6/uL Low 4.6-6.2 [facility] Serum creatinine measurement (mass/volume)Ordered By: Nando Wiggins on 09-17-2024 Creatinine [Mass/Vol] 4.25 mg/dL High 0.70-1.20 [facility] Serum glucose measurement (m ass/volume)Ordered By: Kathiefili Wiggins on 09-17-2024 Glucose [Mass/Vol] 151 mg/dL High 70-99 [facility] Serum or plasma calcium lilli urement (mass/volume)Ordered By: Kathiebiancasrinathwolf Edenlakshmidesiree on 09-17-2024 Calcium [Mass/Vol] 8.7 mg/dL 7.6-11.0 [facility] Serum or plasma urea nitroge n measurement (mass/volume)Ordered By: Nando Wiggins on 09-17-2024 Urea nitrogen [Mass/Vol] 52 mg/dL High 4-19 [facility] Sodium levelOrdered By: Deb Wiggins on 09-17-2024 Sodium [Moles/Vol] 134 mmol/L 133-145 [facility] White blood cell (WBC) count Ordered By: Nando Wiggins on 09-17-2024 WBC (Bld) [#/Vol] 10.3 10*3/uL 4.4-11.0 [facility] Bilirubin directOrdered By: Nando Wiggins on 09-12-2024 Bilirubin.direct [Mass/Vol] 0.11 mg/dL 0.00-0.30 [facility] Bilirubin, totalOrdered By: Nando Wiggins on 09-12-2024 Bilirubin [Mass/Vol] 0.25 mg/dL 0.00-1.30 [facility] Hemoglobin A1c percentageOrd ered By: Nando Wiggins on 09-12-2024 HbA1c (Bld) [Mass fraction] 6.1 % High <5.7 [facility] No Panel InformationOrdered By: Nando Wiggins on 09-12-2024 16 U/L <38 [facility] Serum globulin measurementOr dered By: Nando Wiggins 09-12-2024 Globulin (S) [Mass/Vol] 3.3 g/dL 2.2-4.[address] [facility] Serum or plasma alanine hawkins otransferase (ALT) measurementOrdered By: Nando Wiggins 09-12-2024 ALT [Catalytic activity/Vol] U/L <47 [facility] Serum or plasma albumin lilli urement (mass/volume)Ordered By: Nando Wiggins 09-12-2024 Albumin [Mass/Vol] 2.8 g/dL Low 3.4-4.8 [facility] Serum or plasma alkaline penelope sphatase measurementOrdered By: Nando Wiggins 09-12-2024 ALP [Catalytic activity/Vol] 55 U/L 40-129 [facility] Total proteinOrdered By: Sinan Wigigns on 09-12-2024 Protein [Mass/Vol] 6.0 g/dL 5.9-8.4 [facility] Vitamin B12 ser/plasOrdered By: Nando Wiggins on 09-12-2024 Cobalamin (Vitamin B12) [Mass/Vol] 717 pg/mL 180-914 [facility] Absolute lymphocyte countOrd ered By: Nando Wiggins on 09-10-2024 Lymphocytes Auto (Unsp spec) [#/Vol] 1.78 10*3/uL 0.83-4.51 [facility] Anion gap in Serum or Plasma Ordered By: Nando Wiggins on 09-10-2024 Anion gap [Moles/Vol] 12 mmol/L 5-15 [facility] Automated lymphocyte count a s percentage of total leukocytesOrdered By: Nando Wiggins on 09-10-2024 Lymphocytes/100 WBC Auto (Unsp spec) 21.1 % 19-41 [facility] BUN/creatinine ratioOrdered By: Nando Wiggins on 09-10-2024 Urea nitrogen/Creatinine [Mass ratio] 11.1 mg/mg 10-20 [facility] Basophil percentageOrdered B y: Nando Wiggins on 09-10-2024 Basophils/100 WBC (Bld) 0.7 % 0-[address] [facility] Carbon dioxide, total [Moles /volume] in Central venous bloodOrdered By: Nando Wiggins on 09-10-2024 CO2 [Moles/Vol] 27.1 mmol/L 21.0-32.0 [facility] Chloride assayOrdered By: Kathie Wiggins on 09-10-2024 Chloride [Moles/Vol] 94 mmol/L Low 98-108 [facility] Eosinophil percentageOrdered By: Nando Wiggins on 09-10-2024 Eosinophils/100 WBC (Bld) 1.8 % 0-5 [facility] Erythrocyte distribution wid th ratioOrdered By: Nando Wiggins on 09-10-2024 Erythrocyte distribution width (RBC) [Ratio] 17.3 % High 11.6-14.6 [facility] Erythrocyte distribution wid th standard deviationOrdered By: Nando Wiggins on 09-10-2024 Erythrocyte distribution width (RBC) [Ratio] 56.1 fl High 35.1-43.9 [facility] Glomerular filtration rate ( GFR) estimation/1.73 sq m using serum, plasma, or whole bOrdered By: Nando Wiggins on 09-10-2024 GFR/1.73 sq M.predicted among non-blacks MDRD (S/P/Bld) [Vol rate/Area] 14 mL/min/{1.73_m2} Low >60 [facility] Hematocrit Auto (Bld) [Volum e fraction]Ordered By: Nando Wiggins on 09-10-2024 Hematocrit (Bld) [Volume fraction] 29.7 % Low 40-54 [facility] Hemoglobin measurementOrdere d By: Nando Wiggins on 09-10-2024 Hemoglobin (Bld) [Mass/Vol] 9.1 g/dL Low 13.0-16.5 [facility] Immature granulocytes/100 WB C Auto (Bld)Ordered By: Nando Wiggins on 09-10-2024 Immature granulocytes/100 WBC (Bld) 1.200 % High 0.0-0.9 [facility] MCV (mean corpuscular volume ) determinationOrdered By: Nando Wiggins on 09-10-2024 MCV (RBC) [Entitic vol] 88.9 fL 80-94 [facility] Mean corpuscular hemoglobin (MCH) determinationOrdered By: biancacincinnatiwolf Wiggins on 09-10-2024 MCH (RBC) [Entitic mass] 27.2 pg 27.0-32.0 [facility] Monocyte percentageOrdered B y: Nando Wiggins on 09-10-2024 Monocytes/100 WBC (Bld) 11.2 % High 0-10 [facility] Neutrophil percentageOrdered By: fili Wiggins on 09-10-2024 Neutrophils/100 WBC (Bld) 64.0 % 47-70 [facility] Platelet countOrdered By: Kathie Wiggins on 09-10-2024 Platelets (Bld) [#/Vol] 305 10*3/uL 150-450 [facility] Potassium measurement (mass/ volume)Ordered By: Nando Wiggins on 09-10-2024 Potassium (Unsp spec) [Mass/Vol] 3.9 mmol/L 3.3-5.1 [facility] RBC Auto (Bld) [#/Vol]Ordere d By: Nando Wiggins on 09-10-2024 RBC (Bld) [#/Vol] 3.34 10*6/uL Low 4.6-6.2 [facility] Serum creatinine measurement (mass/volume)Ordered By: Kathiefili Wiggins on 09-10-2024 Creatinine [Mass/Vol] 3.98 mg/dL High 0.70-1.20 [facility] Serum glucose measurement (m ass/volume)Ordered By: Nando Wiggins on 09-10-2024 Glucose [Mass/Vol] 117 mg/dL High 70-99 [facility] Serum or plasma calcium lilli urement (mass/volume)Ordered By: biancacincinnatiwolf Wiggins on 09-10-2024 Calcium [Mass/Vol] 8.9 mg/dL 7.6-11.0 [facility] Serum or plasma urea nitroge n measurement (mass/volume)Ordered By: Nando Edenlakshmidesiree on 09-10-2024 Urea nitrogen [Mass/Vol] 44 mg/dL High 4-19 [facility] Sodium levelOrdered By: Deb quintana Meekcheko on 09-10-2024 Sodium [Moles/Vol] 133 mmol/L 133-145 [facility] White blood cell (WBC) count Ordered By: Kathiefili Eednlakshmidesiree on 09-10-2024 WBC (Bld) [#/Vol] 8.5 10*3/uL 4.4-11.0 [facility] Bedside Glucoseon 09-04-2024 FINGERSTICK GLU 214 mg/dL High 74-106 [facility] Comment on above: Result Comment: FANG GEMENT OF PATIENT CARE PER NURSING PROTOCOL Performed By: #### L 501.080 ####[facility] [address] [place], [address] FINGERSTICK GLU 151 mg/dL High 74-106 [facility] Comment on above: Result Comment: FANG GEMENT OF PATIENT CARE PER NURSING PROTOCOL Performed By: #### L 501.080 ####[facility] [address] [place], [address] [facility] deOrdered By: Earl hWite on 09-04-2024 Glucose [Mass/Vol] 214 mg/dL High [address] [facility] Absolute lymphocyte countOrd ered By: Salma Cervantes on 09-03-2024 Lymphocytes Auto (Unsp spec) [#/Vol] 1.48 10*3/uL 0.83-4.51 [facility] Automated lymphocyte count a s percentage of total leukocytesOrdered By: Salma Adamshn on 09-03-2024 Lymphocytes/100 WBC Auto (Unsp spec) 19.3 % 19-41 [facility] Basophil percentageOrdered B y: Salma Cervantes on 09-03-2024 Basophils/100 WBC (Bld) 0.5 % 0-1 [facility] Bedside Glucoseon 09-03-2024 FINGERSTICK GLU 219 mg/dL High [address] [place] [address] Comment on above: Result Comment: FANG GEMENT OF PATIENT CARE PER NURSING PROTOCOL Performed By: #### L 501.080 ####[facility] [address] [place], [address] FINGERSTICK GLU 212 mg/dL High [address] [place] [address] Comment on above: Result Comment: FANG GEMENT OF PATIENT CARE PER NURSING PROTOCOL Performed By: #### L 501.080 ####[facility] [address] [facility] [address] FINGERSTICK GLU 172 mg/dL High [address] [place] [address] Comment on above: Result Comment: FANG GEMENT OF PATIENT CARE PER NURSING PROTOCOL Performed By: #### L 501.080 ####[facility] [address] [facility] [address] FINGERSTICK GLU 175 mg/dL High [address] [place] [address] Comment on above: Result Comment: FANG GEMENT OF PATIENT CARE PER NURSING PROTOCOL Performed By: #### L 501.080 ####[facility] [address] [place], [address] CBC W/Diff, Automatedon 08-21 Absolute Lymph 1.48 X10 3/uL Normal 0.83-4.51 [facility] Comment on above: Performed By: #### L 100.0100 ####[facility] [address] [place], [address] Absolute Neut 5.2 X10 3/uL Normal 2.0-7.7 [facility] Comment on above: Performed By: #### L 100.0100 ####[facility] [address] [place], [address] Basophils/100 WBC (Bld) 0.5 % Normal 0-1 [facility] Comment on above: Performed By: #### L 100.0100 ####[facility] [address] [place], [address] Eosinophils/100 WBC (Bld) 2.7 % Normal 0-5 [facility] Comment on above: Performed By: #### L 100.0100 ####[facility] [address] [place], [address] Erythrocyte distribution width (RBC) [Ratio] 16.3 % High 11.6-14.6 [facility] Comment on above: Performed By: #### L 100.0100 ####[facility] [address] [place], [address] Hematocrit (Bld) [Volume fraction] 24.8 % Low 40-54 [facility] Comment on above: Performed By: #### L 100.0100 ####[facility] [address] [place], [address] Hemoglobin (Bld) [Mass/Vol] 7.4 g/dL Low 13.0-16.5 [facility] Comment on above: Performed By: #### L 100.0100 ####[facility] [address] [place], [address] IG% 0.500 Normal 0.0-0.9 [facility] Comment on above: Result Comment: IG% - Immature Granulocytes (promyelocytes, myelocytes andmetamyelocytes) > 1% indicates that a LEFT SHIFT is Present. Performed By: #### L 100.0100 ####[facility] [address] [place], [address] Lymphocytes/100 WBC (Bld) 19.3 % Normal 19-41 [facility] Comment on above: Performed By: #### L 100.0100 ####[facility] [address] [place], [address] MCH (RBC) [Entitic mass] 26.6 pg Low 27.0-32.0 [facility] Comment on above: Performed By: #### L 100.0100 ####[facility] [address] [place], [address] MCHC (RBC) [Mass/Vol] 29.8 g/dL Low 32-36 [facility] Comment on above: Performed By: #### L 100.0100 ####[facility] [address] [place], [address] MCV (RBC) [Entitic vol] 89.2 fL Normal 80-94 [facility] Comment on above: Performed By: #### L 100.0100 ####[facility] [address] [place], [address] Monocytes/100 WBC (Bld) 9.7 % Normal 0-10 [facility] Comment on above: Performed By: #### L 100.0100 ####[facility] [address] [place], [address] Neutrophils/100 WBC (Bld) 67.3 % Normal 47-70 [facility] Comment on above: Performed By: #### L 100.0100 ####[facility] [address] [place], [address] Nucleated RBC (Bld) [#/Vol] 0 10*3/uL Normal 0-5 [facility] Comment on above: Performed By: #### L 100.0100 ####[facility] [address] [place], [address] Platelet mean volume (Bld) [Entitic vol] 10.9 fL Normal 6.2-12.0 [facility] Comment on above: Performed By: #### L 100.0100 ####[facility] [address] [place], [address] Platelets (Bld) [#/Vol] 305 10*3/uL Normal 150-450 [facility] Comment on above: Performed By: #### L 100.0100 ####[facility] [address] [place], [address] RBC (Bld) [#/Vol] 2.78 10*6/uL Low 4.6-6.2 [facility] Comment on above: Performed By: #### L 100.0100 ####[facility] [address] [place], [address] RDW SD 53.4 fl High 35.1-43.9 [facility] Comment on above: Performed By: #### L 100.0100 ####[facility] [address] [place], [address] WBC (Bld) [#/Vol] 7.7 10*3/uL Normal 4.4-11.0 [facility] Comment on above: Performed By: #### L 100.0100 ####[facility] [address] [place], [address] Eosinophil percentageOrdered By: Salma Cervantes on 09-03-2024 Eosinophils/100 WBC (Bld) 2.7 % 0-5 [facility] Erythrocyte distribution wid th ratioOrdered By: Salma Cervantes on 09-03-2024 Erythrocyte distribution width (RBC) [Ratio] 16.3 % High 11.6-14.6 [facility] Erythrocyte distribution wid th standard deviationOrdered By: Salma Cervantes on 09-03-2024 Erythrocyte distribution width (RBC) [Ratio] 53.4 fl High 35.1-43.9 [facility] Hematocrit Auto (Bld) [Volum e fraction]Ordered By: Salma Cervantes on 09-03-2024 Hematocrit (Bld) [Volume fraction] 24.8 % Low 40-54 [facility] Hemoglobin measurementOrdere d By: Salma Cervantes on 09-03-2024 Hemoglobin (Bld) [Mass/Vol] 7.4 g/dL Low 13.0-16.5 [facility] Immature granulocytes/100 WB C Auto (Bld)Ordered By: Salma Cervantes on 09-03-2024 Immature granulocytes/100 WBC (Bld) 0.500 % 0.0-0.9 [facility] MCV (mean corpuscular volume ) determinationOrdered By: Salma Cervantes on 09-03-2024 MCV (RBC) [Entitic vol] 89.2 fL 80-94 [facility] Mean corpuscular hemoglobin (MCH) determinationOrdered By: Salma Cervantes on 09-03-2024 MCH (RBC) [Entitic mass] 26.6 pg Low 27.0-32.0 [facility] Monocyte percentageOrdered B y: Salma Cervantes on 09-03-2024 Monocytes/100 WBC (Bld) 9.7 % 0-10 [facility] Neutrophil percentageOrdered By: Salma Cervantes on 09-03-2024 Neutrophils/100 WBC (Bld) 67.3 % 47-70 [facility] Platelet countOrdered By: Xavier Cervantes on 09-03-2024 Platelets (Bld) [#/Vol] 305 10*3/uL 150-450 [facility] RBC Auto (Bld) [#/Vol]Ordere d By: Salma Cervantes on 09-03-2024 RBC (Bld) [#/Vol] 2.78 10*6/uL Low 4.6-6.2 [facility] White blood cell (WBC) count Ordered By: Salma Cervantes on 09-03-2024 WBC (Bld) [#/Vol] 7.7 10*3/uL 4.4-11.0 [facility] Anion gap in Serum or Plasma Ordered By: Salma Cervantes on 09-02-2024 Anion gap [Moles/Vol] 12 mmol/L - [facility] BUN/creatinine ratioOrdered By: Salma Cervantes on 09-02-2024 Urea nitrogen/Creatinine [Mass ratio] 13.7 mg/mg - [facility] Basic Metabolic Profile (BMP )on 09-02-2024 BUN/CRE 13.7 RATIO Normal - [facility] Comment on above: Performed By: #### L 500.2500 ####[facility] [address] [place], [address] Calcium [Mass/Vol] 8.7 mg/dL Normal 7.6-11.0 [facility] Comment on above: Performed By: #### L 500.2500 ####[facility] [address] [place], [address] Chloride [Moles/Vol] 96 mmol/L Low 98-108 [facility] Comment on above: Performed By: #### L 500.2500 ####[facility] [address] [place], [address] CO2 [Moles/Vol] 23.2 mmol/L Normal 21.0-32.0 [facility] Comment on above: Performed By: #### L 500.2500 ####[facility] [address] [place], [address] Creatinine [Mass/Vol] 4.19 mg/dL High 0.70-1.20 [facility] Comment on above: Performed By: #### L 500.2500 ####[facility] [address] [place], [address] ECRCL 13.21 ml/min Low 50-250 [facility] Comment on above: Performed By: #### L 500.2500 ####[facility] [address] [place], [address] GAP 12 Normal 5-15 [facility] Comment on above: Performed By: #### L 500.2500 ####[facility] [address] [place], [address] GFR/1.73 sq M.predicted among non-blacks MDRD (S/P/Bld) [Vol rate/Area] 13 mL/min/{1.73_m2} Low >60 [facility] Comment on above: Result Comment: mL/m in/1.73m2 CKD-EPI Creatinine Equation (2020) Performed By: #### L 500.2500 ####[facility] [address] [place], [address] Glucose [Mass/Vol] 186 mg/dL High 70-99 [facility] Comment on above: Performed By: #### L 500.2500 ####[facility] [address] [place], [address] Potassium [Moles/Vol] 4.8 mmol/L Normal 3.3-5.1 [facility] Comment on above: Performed By: #### L 500.2500 ####[facility] [address] [place], [address] Sodium [Moles/Vol] 131 mmol/L Low 133-145 [facility] Comment on above: Performed By: #### L 500.2500 ####[facility] [address] [place], [address] Urea nitrogen [Mass/Vol] 57 mg/dL High 4-19 [facility] Comment on above: Performed By: #### L 500.2500 ####[facility] [address] [place], [address] Bedside Glucoseon 09-02-2024 [facility] GLU 212 mg/dL High 74-106 [facility] [facility] Comment on above: Result Comment: FANG GEMENT OF PATIENT CARE PER NURSING PROTOCOL Performed By: #### L 501.080 ####[facility] [address] [place], [address] FINGERSTICK GLU 183 mg/dL High 74-106 [facility] Comment on above: Result Comment: FANG GEMENT OF PATIENT CARE PER NURSING PROTOCOL Performed By: #### L 501.080 ####[facility] [address] [place], [address] FINGERSTICK GLU 219 mg/dL High -106 [facility] Comment on above: Result Comment: FANG GEMENT OF PATIENT CARE PER NURSING PROTOCOL Performed By: #### L 501.080 ####[facility] [address] [place], [address] FINGERSTICK GLU 177 mg/dL High 74-106 [facility] Comment on above: Result Comment: FANG GEMENT OF PATIENT CARE PER NURSING PROTOCOL Performed By: #### L 501.080 ####[facility] [address] [place], [address] CBC W/Diff, Automatedon 04- Absolute Lymph 1.42 X10 3/uL Normal 0.83-4.51 [facility] Comment on above: Performed By: #### L 100.0100 ####[facility] [address] [place], [address] Absolute Neut 4.8 X10 3/uL Normal 2.0-7.7 [facility] Comment on above: Performed By: #### L 100.0100 ####[facility] [address] [place], [address] Basophils/100 WBC (Bld) 0.4 % Normal 0-1 [facility] Comment on above: Performed By: #### L 100.0100 ####[facility] [address] [place], [address] Eosinophils/100 WBC (Bld) 3.2 % Normal 0-5 [facility] Comment on above: Performed By: #### L 100.0100 ####[facility] [address] [place], [address] Erythrocyte distribution width (RBC) [Ratio] 16.0 % High 11.6-14.6 [facility] Comment on above: Performed By: #### L 100.0100 ####[facility] [address] [place], [address] Hematocrit (Bld) [Volume fraction] 25.8 % Low 40-54 [facility] Comment on above: Performed By: #### L 100.0100 ####[facility] [address] [place], [address] Hemoglobin (Bld) [Mass/Vol] 7.8 g/dL Low 13.0-16.5 [facility] Comment on above: Performed By: #### L 100.0100 ####[facility] [address] [place], [address] IG% 0.400 Normal 0.0-0.9 [facility] Comment on above: Result Comment: IG% - Immature Granulocytes (promyelocytes, myelocytes andmetamyelocytes) > 1% indicates that a LEFT SHIFT is Present. Performed By: #### L 100.0100 ####[facility] [address] [place], [address] Lymphocytes/100 WBC (Bld) 19.9 % Normal 19-41 [facility] Comment on above: Performed By: #### L 100.0100 ####[facility] [address] [place], [address] MCH (RBC) [Entitic mass] 27.2 pg Normal 27.0-32.0 [facility] Comment on above: Performed By: #### L 100.0100 ####[facility] [address] [place], [address] MCHC (RBC) [Mass/Vol] 30.2 g/dL Low 32-36 [facility] Comment on above: Performed By: #### L 100.0100 ####[facility] [address] [place], [address] MCV (RBC) [Entitic vol] 89.9 fL Normal 80-94 [facility] Comment on above: Performed By: #### L 100.0100 ####[facility] [address] [place], [address] Monocytes/100 WBC (Bld) 9.1 % Normal 0-[address] [facility] Comment on above: Performed By: #### L 100.0100 ####[facility] [address] [place], [address] Neutrophils/100 WBC (Bld) 67.0 % Normal 47-70 [facility] Comment on above: Performed By: #### L 100.0100 ####[facility] [address] [place], [address] Nucleated RBC (Bld) [#/Vol] 0 10*3/uL Normal 0-5 [facility] Comment on above: Performed By: #### L 100.0100 ####[facility] [address] [place], [address] Platelet mean volume (Bld) [Entitic vol] 10.6 fL Normal 6.2-12.0 [facility] Comment on above: Performed By: #### L 100.0100 ####[facility] [address] [place], [address] Platelets (Bld) [#/Vol] 284 10*3/uL Normal 150-450 [facility] Comment on above: Performed By: #### L 100.0100 ####[facility] [address] [place], [address] RBC (Bld) [#/Vol] 2.87 10*6/uL Low 4.6-6.2 [facility] Comment on above: Performed By: #### L 100.0100 ####[facility] [address] [place], [address] RDW SD 52.3 fl High 35.1-43.9 [facility] Comment on above: Performed By: #### L 100.0100 ####[facility] [address] [place], [address] WBC (Bld) [#/Vol] 7.2 10*3/uL Normal 4.4-11.0 [facility] Comment on above: Performed By: #### L 100.0100 ####[facility] [address] [place], [address] Carbon dioxide, total [Moles /volume] in Central venous bloodOrdered By: Salma Cervantes on 09-02-2024 CO2 [Moles/Vol] 23.2 mmol/L 21.0-32.0 [facility] Chloride assayOrdered By: Xavier Cervantes on 09-02-2024 Chloride [Moles/Vol] 96 mmol/L Low 98-108 [facility] Glomerular filtration rate ( GFR) estimation/1.73 sq m using serum, plasma, or whole bOrdered By: Salma Cervantes on 09-02-2024 GFR/1.73 sq M.predicted among non-blacks MDRD (S/P/Bld) [Vol rate/Area] 13 mL/min/{1.73_m2} Low >60 [facility] Potassium measurement (mass/ volume)Ordered By: Salma Cervantes on 09-02-2024 Potassium (Unsp spec) [Mass/Vol] 4.8 mmol/L 3.3-5.1 [facility] Serum creatinine measurement (mass/volume)Ordered By: Salma Cervantes on 09-02-2024 Creatinine [Mass/Vol] 4.19 mg/dL High 0.70-1.20 [facility] Serum glucose measurement (m ass/volume)Ordered By: Salma Billy on 09-02-2024 Glucose [Mass/Vol] 186 mg/dL High 70-99 [facility] Serum or plasma calcium lilli urement (mass/volume)Ordered By: Salmavito Cervantes on 09-02-2024 Calcium [Mass/Vol] 8.7 mg/dL 7.6-11.0 [facility] Serum or plasma urea nitroge n measurement (mass/volume)Ordered By: Salma Cervantes on 09-02-2024 Urea nitrogen [Mass/Vol] 57 mg/dL High 4-19 [facility] Sodium levelOrdered By: Juanlena samano Billy on 09-02-2024 Sodium [Moles/Vol] 131 mmol/L Low 133-145 [facility] Bedside Glucoseon 09-01-2024 FINGERSTICK GLU 183 mg/dL High 74-106 [facility] Comment on above: Result Comment: FANG GEMENT OF PATIENT CARE PER NURSING PROTOCOL Performed By: #### L 501.080 ####[facility] [address] [facility] [address] FINGERSTICK GLU 230 mg/dL High 74-106 [facility] Comment on above: Result Comment: FANG GEMENT OF PATIENT CARE PER NURSING PROTOCOL Performed By: #### L 501.080 ####[facility] [address] [facility] [address] FINGERSTICK GLU 103 mg/dL Normal 74-106 [facility] Comment on above: Result Comment: FANG GEMENT OF PATIENT CARE PER NURSING PROTOCOL Performed By: #### L 501.080 ####[facility] [address] [facility] [address] FINGERSTICK GLU 216 mg/dL High 74-106 [facility] Comment on above: Result Comment: FANG GEMENT OF PATIENT CARE PER NURSING PROTOCOL Performed By: #### L 501.080 ####[facility] [address] [place], [address] Serum or plasma vancomycin m easurement (mass/volume)Ordered By: Earl White on 09-01-2024 Vancomycin [Mass/Vol] 14.1 ug/mL 0.0-15.0 [facility] Vancomycin, Random Levelon 0 09-01-2024 VANCO, RANDOM 14.1 ug/mL Normal 0.0-15.0 [facility] Comment on above: Result Comment: VANC OMYCIN STANDARD DRUG THERAPY: CRITICAL VALUE IS > 15.0 mg/LVANCOMYCIN HIGH INTENSITY THERAPY: CRITICAL VALUE IS > 20.0 mg/LPLEASE CONTACT PHARMACY SERVICES (#4743) FOR INTERPRETATIONOF RESULTS. THIS RESULT DOES NOT REPRESENT A PEAK OR TROUGHLEVEL FOR THIS DRUG. Performed By: #### L 501.8850 ####[facility] [address] [place], [address] AV Fistula/Dialysis Graft Sc anon 08-31-2024 AV Fistula/Dialysis Graft Scan Normal [facility] Bedside Glucoseon 08-31-2024 FINGERSTICK GLU 169 mg/dL High 74-106 [facility] Comment on above: Result Comment: FANG GEMENT OF PATIENT CARE PER NURSING PROTOCOL Performed By: #### L 501.080 ####[facility] [address] [place], [address] FINGERSTICK GLU 207 mg/dL High 74-106 [facility] Comment on above: Result Comment: FANG GEMENT OF PATIENT CARE PER NURSING PROTOCOL Performed By: #### L 501.080 ####[facility] [address] [place], [address] FINGERSTICK GLU 162 mg/dL High 74-106 [facility] Comment on above: Result Comment: FANG GEMENT OF PATIENT CARE PER NURSING PROTOCOL Performed By: #### L 501.080 ####[facility] [address] [place], [address] FINGERSTICK GLU 189 mg/dL High 74-106 [facility] Comment on above: Result Comment: FANG GEMENT OF PATIENT CARE PER NURSING PROTOCOL Performed By: #### L 501.080 ####[facility] [address] [place], [address] CBC W/Diff, Automatedon - Absolute Lymph 1.13 X10 3/uL Normal 0.83-4.51 [facility] Comment on above: Performed By: #### L 100.0100 ####[facility] [address] [place], [address] Absolute Neut 5.3 X10 3/uL Normal 2.0-7.7 [facility] Comment on above: Performed By: #### L 100.0100 ####[facility] [address] [place], [address] Basophils/100 WBC (Bld) 0.6 % Normal 0-1 [facility] Comment on above: Performed By: #### L 100.0100 ####[facility] [address] [place], [address] Eosinophils/100 WBC (Bld) 3.1 % Normal 0-5 [facility] Comment on above: Performed By: #### L 100.0100 ####[facility] [address] [place], [address] Erythrocyte distribution width (RBC) [Ratio] 16.1 % High 11.6-14.6 [facility] Comment on above: Performed By: #### L 100.0100 ####[facility] [address] [place], [address] Hematocrit (Bld) [Volume fraction] 26.1 % Low 40-54 [facility] Comment on above: Performed By: #### L 100.0100 ####[facility] [address] [place], [address] Hemoglobin (Bld) [Mass/Vol] 7.7 g/dL Low 13.0-16.5 [facility] Comment on above: Performed By: #### L 100.0100 ####[facility] [address] [place], [address] IG% 0.500 Normal 0.0-0.9 [facility] Comment on above: Result Comment: IG% - Immature Granulocytes (promyelocytes, myelocytes andmetamyelocytes) > 1% indicates that a LEFT SHIFT is Present. Performed By: #### L 100.0100 ####[facility] [address] [place], [address] Lymphocytes/100 WBC (Bld) 14.5 % Low 19-41 [facility] Comment on above: Performed By: #### L 100.0100 ####[facility] [address] [place], [address] MCH (RBC) [Entitic mass] 27.0 pg Normal 27.0-32.0 [facility] Comment on above: Performed By: #### L 100.0100 ####[facility] [address] [place], [address] MCHC (RBC) [Mass/Vol] 29.5 g/dL Low 32-36 [facility] Comment on above: Performed By: #### L 100.0100 ####[facility] [address] [place], [address] MCV (RBC) [Entitic vol] 91.6 fL Normal 80-94 [facility] Comment on above: Performed By: #### L 100.0100 ####[facility] [address] [place], [address] Monocytes/100 WBC (Bld) 12.9 % High 0-10 [facility] Comment on above: Performed By: #### L 100.0100 ####[facility] [address] [place], [address] Neutrophils/100 WBC (Bld) 68.4 % Normal 47-70 [facility] Comment on above: Performed By: #### L 100.0100 ####[facility] [address] [place], [address] Nucleated RBC (Bld) [#/Vol] 0 10*3/uL Normal 0-5 [facility] Comment on above: Performed By: #### L 100.0100 ####[facility] [address] [place], [address] Platelet mean volume (Bld) [Entitic vol] 10.5 fL Normal 6.2-12.0 [facility] Comment on above: Performed By: #### L 100.0100 ####[facility] [address] [place], [address] Platelets (Bld) [#/Vol] 234 10*3/uL Normal 150-450 [facility] Comment on above: Performed By: #### L 100.0100 ####[facility] [address] [place], [address] RBC (Bld) [#/Vol] 2.85 10*6/uL Low 4.6-6.2 [facility] Comment on above: Performed By: #### L 100.0100 ####[facility] [address] [place], [address] RDW SD 53.4 fl High 35.1-43.9 [facility] Comment on above: Performed By: #### L 100.0100 ####[facility] [address] [place], [address] WBC (Bld) [#/Vol] 7.8 10*3/uL Normal 4.4-11.0 [facility] Comment on above: Performed By: #### L 100.0100 ####[facility] [address] [place], [address] Basic Metabolic Profile (BMP )on 08-30-2024 BUN/CRE 11.0 RATIO Normal 10-20 [facility] Comment on above: Performed By: #### L 500.2500, L100.0100 ####[facility] [address] [place], [address] Calcium [Mass/Vol] 8.7 mg/dL Normal 7.6-11.0 [facility] Comment on above: Performed By: #### L 500.2500, L100.0100 ####[facility] [address] [place], [address] Chloride [Moles/Vol] 92 mmol/L Low 98-108 [facility] Comment on above: Performed By: #### L 500.2500, L100.0100 ####[facility] [address] [place], [address] CO2 [Moles/Vol] 27.5 mmol/L Normal 21.0-32.0 [facility] Comment on above: Performed By: #### L 500.2500, L100.0100 ####[facility] [address] [place], [address] Creatinine [Mass/Vol] 5.42 mg/dL High 0.70-1.20 [facility] Comment on above: Performed By: #### L 500.2500, L100.0100 ####[facility] [address] [place], [address] ECRCL 12.64 ml/min Low 50-250 [facility] Comment on above: Performed By: #### L 500.2500, L100.0100 ####[facility] [address] [place], [address] GAP 14 Normal 5-15 [facility] Comment on above: Performed By: #### L 500.2500, L100.0100 ####[facility] [address] [place], [address] GFR/1.73 sq M.predicted among non-blacks MDRD (S/P/Bld) [Vol rate/Area] 10 mL/min/{1.73_m2} Low >60 [facility] Comment on above: Result Comment: mL/m in/1.73m2 CKD-EPI Creatinine Equation (2020) Performed By: #### L 500.2500, L100.0100 ####[facility] [address] [place], [address] Glucose [Mass/Vol] 196 mg/dL High 70-99 [facility] Comment on above: Performed By: #### L 500.2500, L100.0100 ####[facility] [address] [place], [address] Potassium [Moles/Vol] 5.2 mmol/L High 3.3-5.1 [facility] Comment on above: Performed By: #### L 500.2500, L100.0100 ####[facility] [address] [place], [address] Sodium [Moles/Vol] 134 mmol/L Normal 133-145 [facility] Comment on above: Performed By: #### L 500.2500, L100.0100 ####[facility] [address] [place], [address] Urea nitrogen [Mass/Vol] 60 mg/dL High 4-19 [facility] Comment on above: Performed By: #### L 500.2500, L100.0100 ####[facility] [address] [place], [address] Bedside Glucoseon 08-30-2024 FINGERSTICK GLU 285 mg/dL High 74-106 [facility] Comment on above: Result Comment: FANG ROLANDOENT OF PATIENT CARE PER NURSING PROTOCOL Performed By: #### L 501.080 ####[facility] [address] [place], [address] FINGERSTICK GLU 287 mg/dL High 74-106 [facility] Comment on above: Result Comment: FANG GEMENT OF PATIENT CARE PER NURSING PROTOCOL Performed By: #### L 501.080 ####[facility] [address] [place], [address] FINGERSTICK GLU 192 mg/dL High 74-106 [facility] Comment on above: Result Comment: FANG GEMENT OF PATIENT CARE PER NURSING PROTOCOL Performed By: #### L 501.080 ####[facility] [address] [place], [address] FINGERSTICK GLU 195 mg/dL High 74-106 [facility] Comment on above: Result Comment: FANG GEMENT OF PATIENT CARE PER NURSING PROTOCOL Performed By: #### L 501.080 ####[facility] [address] [place], [address] CBC W/Diff, Automatedon 04- 0-5 Absolute Lymph 1.31 X10 3/uL Normal 0.83-4.51 [facility] Comment on above: Performed By: #### L 500.2500, L100.0100 ####[facility] [address] [place], [address] Absolute Neut 7.1 X10 3/uL Normal 2.0-7.7 [facility] Comment on above: Performed By: #### L 500.2500, L100.0100 ####[facility] [address] [place], [address] Basophils/100 WBC (Bld) 0.5 % Normal 0-1 [facility] Comment on above: Performed By: #### L 500.2500, L100.0100 ####[facility] [address] [place], [address] Eosinophils/100 WBC (Bld) 0.9 % Normal 0-5 [facility] Comment on above: Performed By: #### L 500.2500, L100.0100 ####[facility] [address] [place], [address] Erythrocyte distribution width (RBC) [Ratio] 16.3 % High 11.6-14.6 [facility] Comment on above: Performed By: #### L 500.2500, L100.0100 ####[facility] [address] [place], [address] Hematocrit (Bld) [Volume fraction] 26.9 % Low 40-54 [facility] Comment on above: Performed By: #### L 500.2500, L100.0100 ####[facility] [address] [place], [address] Hemoglobin (Bld) [Mass/Vol] 7.9 g/dL Low 13.0-16.5 [facility] Comment on above: Performed By: #### L 500.2500, L100.0100 ####[facility] [address] [place], [address] IG% 0.600 Normal 0.0-0.9 [facility] Comment on above: Result Comment: IG% - Immature Granulocytes (promyelocytes, myelocytes andmetamyelocytes) > 1% indicates that a LEFT SHIFT is Present. Performed By: #### L 500.2500, L100.0100 ####[facility] [address] [place], [address] Lymphocytes/100 WBC (Bld) 13.4 % Low 19-41 [facility] Comment on above: Performed By: #### L 500.2500, L100.0100 ####[facility] [address] [place], [address] MCH (RBC) [Entitic mass] 26.8 pg Low 27.0-32.0 [facility] Comment on above: Performed By: #### L 500.2500, L100.0100 ####[facility] [address] [place], [address] MCHC (RBC) [Mass/Vol] 29.4 g/dL Low 32-36 [facility] Comment on above: Performed By: #### L 500.2500, L100.0100 ####[facility] [address] [place], [address] MCV (RBC) [Entitic vol] 91.2 fL Normal 80-94 [facility] Comment on above: Performed By: #### L 500.2500, L100.0100 ####[facility] [address] [place], [address] Monocytes/100 WBC (Bld) 12.2 % High 0-10 [facility] Comment on above: Performed By: #### L 500.2500, L100.0100 ####[facility] [address] [place], [address] Neutrophils/100 WBC (Bld) 72.4 % High 47-70 [facility] Comment on above: Performed By: #### L 500.2500, L100.0100 ####[facility] [address] [place], [address] Nucleated RBC (Bld) [#/Vol] 0 10*3/uL Normal 0-5 [facility] Comment on above: Performed By: #### L 500.2500, L100.0100 ####[facility] [address] [place], [address] Platelet mean volume (Bld) [Entitic vol] 10.7 fL Normal 6.2-12.0 [facility] Comment on above: Performed By: #### L 500.2500, L100.0100 ####[facility] [address] [place], [address] Platelets (Bld) [#/Vol] 279 10*3/uL Normal 150-450 [facility] Comment on above: Performed By: #### L 500.2500, L100.0100 ####[facility] [address] [place], [address] RBC (Bld) [#/Vol] 2.95 10*6/uL Low 4.6-6.2 [facility] Comment on above: Performed By: #### L 500.2500, L100.0100 ####[facility] [address] [place], [address] RDW SD 54.3 fl High 35.1-43.9 [facility] Comment on above: Performed By: #### L 500.2500, L100.0100 ####[facility] [address] [place], [address] WBC (Bld) [#/Vol] 9.8 10*3/uL Normal 4.4-11.0 [facility] Comment on above: Performed By: #### L 500.2500, L100.0100 ####[facility] [address] [place], [address] Consultation - Nephrologyon 08-30-2024 Consultation - Nephrology Normal [facility] Vancomycin, Random Levelon 0 08-30-2024 VANCO, RANDOM 12.3 ug/mL Normal 0.0-15.0 [facility] Comment on above: Result Comment: VANC OMYCIN STANDARD DRUG THERAPY: CRITICAL VALUE IS > 15.0 mg/LVANCOMYCIN HIGH INTENSITY THERAPY: CRITICAL VALUE IS > 20.0 mg/LPLEASE CONTACT PHARMACY SERVICES (#9668) FOR INTERPRETATIONOF RESULTS. THIS RESULT DOES NOT REPRESENT A PEAK OR TROUGHLEVEL FOR THIS DRUG. Performed By: #### L 501.8850 ####[facility] [address] [place], [address] Bedside Glucoseon 08-29-2024 FINGERSTICK GLU 218 mg/dL High 74-106 [facility] Comment on above: Result Comment: FANG GEMENT OF PATIENT CARE PER NURSING PROTOCOL Performed By: #### L 501.080 ####[facility] [address] [place], [address] FINGERSTICK GLU 236 mg/dL High 74-106 [facility] Comment on above: Result Comment: FANG GEMENT OF PATIENT CARE PER NURSING PROTOCOL Performed By: #### L 501.080 ####[facility] [address] [place], [address] FINGERSTICK GLU 220 mg/dL High 74-106 [facility] Comment on above: Result Comment: FANG GEMENT OF PATIENT CARE PER NURSING PROTOCOL Performed By: #### L 501.080 ####[facility] [address] [place], [address] FINGERSTICK GLU 175 mg/dL High [address] [place] [address] Comment on above: Result Comment: FANG GEMENT OF PATIENT CARE PER NURSING PROTOCOL Performed By: #### L 501.080 ####[facility] [address] [place], [address] Decalcification bone/plaqueo n 08-29-2024 Decalcification bone/plaque Normal [facility] Comment on above: Performed By: #### P DEC ####[facility] [address] [place], [address] H AND P Exam - Surgicalon H&P Exam - Surgical Normal [facility] MR/POSTOP.ANEon 08-29-2024 MR/POSTOP.ANE Normal [facility] MR/[id number] 08-29-2024 MR/POSTOPAN2 Normal [facility] Operative Reporton Operative Report Normal [facility] BRCon 08-28-[address] [facility] Comment on above: Result Comment: [id number] AP RC XM COMPATIBLE Performed By: #### B RC, L100.0500, BTSPAT, L500.2500 ####[facility] [address] [place], [address] Basic Metabolic Profile (BMP )on 08-28-2024 BUN/CRE 13.2 RATIO Normal 10-20 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 [id number] 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 [address] 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 [address] [place], [address] CO2 [Moles/Vol] 24.9 mmol/L Normal 21.0-32.0 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 [address] 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 [address] [place], [address] GAP 16 High 5-15 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 [address] [place], [address] GFR/1.73 sq M.predicted among non-blacks MDRD (S/P/Bld) [Vol rate/Area] 9 mL/min/{1.73_m2} Low >60 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 [address] 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 [address] 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 [address] 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 [address] [place], [address] Urea nitrogen [Mass/Vol] 76 mg/dL High 4-19 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 [address] [place], [address] CBC-Complete Blood Cnt No Di ffon 08-28-2024 Erythrocyte distribution width (RBC) [Ratio] 16.2 % High 11.6-14.6 [facility] Comment on above: Order Comment: 400.1 Performed By: #### B RC, L100.0500, BTSPAT, L500.2500 ####[facility] [address] [place], [address] Hematocrit (Bld) [Volume fraction] 30.6 % Low 40-54 [facility] Comment on above: Order Comment: 400.1 Performed By: #### Too GARCIA, L100.0500, BTSPAT, L500.2500 ####[facility] [address] [place], [address] Hemoglobin (Bld) [Mass/Vol] 9.1 g/dL Low 13.0-16.5 [facility] Comment on above: Order Comment: 400.1 Performed By: #### Too GARCIA, L100.0500, BTSPAT, L500.2500 ####[facility] [address] [place], [address] MCH (RBC) [Entitic mass] 26.9 pg Low 27.0-32.0 [facility] Comment on above: Order Comment: 400.1 Performed By: #### B RC, L100.0500, BTSPAT, L500.2500 ####[facility] [address] [place], [address] MCHC (RBC) [Mass/Vol] 29.7 g/dL Low 32-36 [facility] Comment on above: Order Comment: 400.1 Performed By: #### B RC, L100.0500, BTSPAT, L500.2500 ####[facility] [address] [place], [address] MCV (RBC) [Entitic vol] 90.5 fL Normal 80-94 [facility] Comment on above: Order Comment: 400.1 Performed By: #### B RC, L100.0500, BTSPAT, L500.2500 ####[facility] [address] [place], [address] Platelet mean volume (Bld) [Entitic vol] 10.5 fL Normal 6.2-12.0 [facility] Comment on above: Order Comment: 400.1 Performed By: #### B RC, L100.0500, BTSPAT, L500.2500 ####[facility] [address] [place], [address] Platelets (Bld) [#/Vol] 321 10*3/uL Normal 150-450 [facility] Comment on above: Order Comment: 400.1 Performed By: #### B RC, L100.0500, BTSPAT, L500.2500 ####[facility] [address] [place], [address] RBC (Bld) [#/Vol] 3.38 10*6/uL Low 4.6-6.2 [facility] Comment on above: Order Comment: 400.1 Performed By: #### B RC, L100.0500, BTSPAT, L500.2500 ####[facility] [address] [place], [address] RDW SD 53.1 fl High 35.1-43.9 [facility] Comment on above: Order Comment: 400.1 Performed By: #### B RC, L100.0500, BTSPAT, L500.2500 ####[facility] [address] [place], [address] WBC (Bld) [#/Vol] 9.5 10*3/uL Normal 4.4-11.0 [facility] Comment on above: Order Comment: 400.1 Performed By: #### B RC, L100.0500, BTSPAT, L500.2500 ####[facility] [address] [place], [address] MR/PAT.ANEon 08-28-2024 MR/PAT.ANE Normal [facility] Type AND Screen - PAT ONLYon 08-28-2024 Ab SCREEN GEL Negative Normal 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 [address] [place], [address] Absolute lymphocyte countOrd ered By: Nando Wiggins on 08-27-2024 Lymphocytes Auto (Unsp spec) [#/Vol] 1.45 10*3/uL 0.83-4.51 [facility] Anion gap in Serum or Plasma Ordered By: Nando Wiggins on 08-27-2024 Anion gap [Moles/Vol] 15 mmol/L 5-15 [facility] Automated lymphocyte count a s percentage of total leukocytesOrdered By: Nando Wiggins on 08-27-2024 Lymphocytes/100 WBC Auto (Unsp spec) 16.0 % Low 19-41 [facility] BUN/creatinine ratioOrdered By: Nando Wiggins on 08-27-2024 Urea nitrogen/Creatinine [Mass ratio] 10.5 mg/mg 10-20 [facility] Basophil percentageOrdered B y: Nando Wiggins on 08-27-2024 Basophils/100 WBC (Bld) 0.6 % 0-1 [facility] Carbon dioxide, total [Moles /volume] in Central venous bloodOrdered By: Nando Wiggins on 08-27-2024 CO2 [Moles/Vol] 26.5 mmol/L 21.0-32.0 [facility] Chloride assayOrdered By: Kathie Wiggins on 08-27-2024 Chloride [Moles/Vol] 94 mmol/L Low 98-108 [facility] Eosinophil percentageOrdered By: Nando Wiggins 08-27-2024 Eosinophils/100 WBC (Bld) 2.3 % 0-5 [facility] Erythrocyte distribution wid th ratioOrdered By: Nando Wiggins on 08-27-2024 Erythrocyte distribution width (RBC) [Ratio] 16.3 % High 11.6-14.6 [facility] Erythrocyte distribution wid th standard deviationOrdered By: Nando Wiggins on 08-27-2024 Erythrocyte distribution width (RBC) [Ratio] 54.3 fl High 35.1-43.9 [facility] Glomerular filtration rate ( GFR) estimation/1.73 sq m using serum, plasma, or whole bOrdered By: Nando Wiggins on 08-27-2024 GFR/1.73 sq M.predicted among non-blacks MDRD (S/P/Bld) [Vol rate/Area] 10 mL/min/{1.73_m2} Low >60 [facility] Hematocrit Auto (Bld) [Volum e fraction]Ordered By: Nando Wiggins on 08-27-2024 Hematocrit (Bld) [Volume fraction] 30.4 % Low 40-54 [facility] Hemoglobin measurementOrdere d By: Nando Wiggins on 08-27-2024 Hemoglobin (Bld) [Mass/Vol] 9.0 g/dL Low 13.0-16.5 [facility] Immature granulocytes/100 WB C Auto (Bld)Ordered By: Nando Wiggins 08-27-2024 Immature granulocytes/100 WBC (Bld) 0.700 % 0.0-0.9 [facility] MCV (mean corpuscular volume ) determinationOrdered By: Nando Wiggins 08-27-2024 MCV (RBC) [Entitic vol] 91.3 fL 80-94 [facility] Mean corpuscular hemoglobin (MCH) determinationOrdered By: Brianwolf Edenlakshmidesiree on 08-27-2024 MCH (RBC) [Entitic mass] 27.0 pg 27.0-32.0 [facility] Monocyte percentageOrdered B y: Nando Wiggins on 08-27-2024 Monocytes/100 WBC (Bld) 10.7 % High 0-10 [facility] Neutrophil percentageOrdered By: Nando Wiggins on 08-27-2024 Neutrophils/100 WBC (Bld) 69.7 % 47-70 [facility] Platelet countOrdered By: Kathie penn Meekcheko on 08-27-2024 Platelets (Bld) [#/Vol] 300 10*3/uL 150-450 [facility] Potassium measurement (mass/ volume)Ordered By: Kathiebiancalilian Meekcheko on 08-27-2024 Potassium (Unsp spec) [Mass/Vol] 3.7 mmol/L 3.3-5.1 [facility] RBC Auto (Bld) [#/Vol]Ordere d By: Nando Wiggins on 08-27-2024 RBC (Bld) [#/Vol] 3.33 10*6/uL Low 4.6-6.2 [facility] Serum creatinine measurement (mass/volume)Ordered By: Kathiebiancalilian Meekcheko on 08-27-2024 Creatinine [Mass/Vol] 5.29 mg/dL High 0.70-1.20 [facility] Serum glucose measurement (m ass/volume)Ordered By: Kathiebiancalilian Meeklakshmidesiree on 08-27-2024 Glucose [Mass/Vol] 261 mg/dL High 70-99 [facility] Serum or plasma calcium lilli urement (mass/volume)Ordered By: Brianwolf Edenlakshmidesiree on 08-27-2024 Calcium [Mass/Vol] 8.8 mg/dL 7.6-11.0 [facility] Serum or plasma urea nitroge n measurement (mass/volume)Ordered By: Brianwolf Edenlakshmidesiree on 08-27-2024 Urea nitrogen [Mass/Vol] 55 mg/dL High 4-19 [facility] Sodium levelOrdered By: Deb quintana Meeklakshmidesiree on 04-07-2025 Sodium [Moles/Vol] 135 mmol/L 133-145 [facility] White blood cell (WBC) count Ordered By: Nando Wiggins on 08-27-2024 WBC (Bld) [#/Vol] 9.0 10*3/uL 4.4-11.0 [facility] Absolute lymphocyte countOrd ered By: Nando Wiggins on 08-20-2024 Lymphocytes Auto (Unsp spec) [#/Vol] 2.15 10*3/uL 0.83-4.51 [facility] Anion gap in Serum or Plasma Ordered By: Nando Wiggins on 08-20-2024 Anion gap [Moles/Vol] 15 mmol/L 5-15 [facility] Automated lymphocyte count a s percentage of total leukocytesOrdered By: Nando Wiggins on 08-20-2024 Lymphocytes/100 WBC Auto (Unsp spec) 25.2 % 19-41 [facility] BUN/creatinine ratioOrdered By: Nando Wiggins on 08-20-2024 Urea nitrogen/Creatinine [Mass ratio] 12.6 mg/mg 10-20 [facility] Basophil percentageOrdered B y: Nando Wiggins on 08-20-2024 Basophils/100 WBC (Bld) 0.8 % 0-[address] [facility] Carbon dioxide, total [Moles /volume] in Central venous bloodOrdered By: Nando Wiggins on 08-20-2024 CO2 [Moles/Vol] 26.9 mmol/L 21.0-32.0 [facility] Chloride assayOrdered By: Kathie Wiggins on 08-20-2024 Chloride [Moles/Vol] 93 mmol/L Low 98-108 [facility] Eosinophil percentageOrdered By: Nando Wiggins on 08-20-2024 Eosinophils/100 WBC (Bld) 2.2 % 0-5 [facility] Erythrocyte distribution wid th ratioOrdered By: Nando Wiggins on 08-20-2024 Erythrocyte distribution width (RBC) [Ratio] 16.0 % High 11.6-14.6 [facility] Erythrocyte distribution wid th standard deviationOrdered By: Nando Wiggins on 08-20-2024 Erythrocyte distribution width (RBC) [Ratio] 54.5 fl High 35.1-43.9 [facility] Glomerular filtration rate ( GFR) estimation/1.73 sq m using serum, plasma, or whole bOrdered By: Nando Wiggins on 08-20-2024 GFR/1.73 sq M.predicted among non-blacks MDRD (S/P/Bld) [Vol rate/Area] 12 mL/min/{1.73_m2} Low >60 [facility] Hematocrit Auto (Bld) [Volum e fraction]Ordered By: Nando Wiggins on 08-20-2024 Hematocrit (Bld) [Volume fraction] 30.9 % Low 40-54 [facility] Hemoglobin measurementOrdere d By: Nando Wiggins on 08-20-2024 Hemoglobin (Bld) [Mass/Vol] 9.2 g/dL Low 13.0-16.5 [facility] Immature granulocytes/100 WB C Auto (Bld)Ordered By: Nando Wiggins on 08-20-2024 Immature granulocytes/100 WBC (Bld) 0.800 % 0.0-0.9 [facility] MCV (mean corpuscular volume ) determinationOrdered By: Nando Wiggins on 08-20-2024 MCV (RBC) [Entitic vol] 92.2 fL 80-94 [facility] Mean corpuscular hemoglobin (MCH) determinationOrdered By: biancacincinnatiwolf Wiggins on 08-20-2024 MCH (RBC) [Entitic mass] 27.5 pg 27.0-32.0 [facility] Monocyte percentageOrdered B y: Nando Wiggins on 08-20-2024 Monocytes/100 WBC (Bld) 8.3 % 0-10 [facility] Neutrophil percentageOrdered By: fili Wiggins on 08-20-2024 Neutrophils/100 WBC (Bld) 62.7 % 47-70 [facility] Platelet countOrdered By: Kathie Wiggins on 08-20-2024 Platelets (Bld) [#/Vol] 321 10*3/uL 150-450 [facility] Potassium measurement (mass/ volume)Ordered By: Nando Wiggins on 08-20-2024 Potassium (Unsp spec) [Mass/Vol] 4.1 mmol/L 3.3-5.1 [facility] RBC Auto (Bld) [#/Vol]Ordere d By: Nando Wiggins on 08-20-2024 RBC (Bld) [#/Vol] 3.35 10*6/uL Low 4.6-6.2 [facility] Serum creatinine measurement (mass/volume)Ordered By: Nando Wiggins on 08-20-2024 Creatinine [Mass/Vol] 4.37 mg/dL High 0.70-1.20 [facility] Serum glucose measurement (m ass/volume)Ordered By: Nando Wiggins on 08-20-2024 Glucose [Mass/Vol] 85 mg/dL 70-99 [facility] Serum or plasma calcium lilli urement (mass/volume)Ordered By: Nando Wiggins on 08-20-2024 Calcium [Mass/Vol] 9.3 mg/dL 7.6-11.0 [facility] Serum or plasma urea nitroge n measurement (mass/volume)Ordered By: Nando Wiggins on 08-20-2024 Urea nitrogen [Mass/Vol] 55 mg/dL High 4-19 [facility] Sodium levelOrdered By: Deb Wiggins on 08-20-2024 Sodium [Moles/Vol] 134 mmol/L 133-145 [facility] White blood cell (WBC) count Ordered By: Nando Wiggins on 08-20-2024 WBC (Bld) [#/Vol] 8.5 10*3/uL 4.4-11.0 [facility] Absolute lymphocyte countOrd ered By: Nando Wiggins on 08-13-2024 Lymphocytes Auto (Unsp spec) [#/Vol] 1.80 10*3/uL 0.83-4.51 [facility] Anion gap in Serum or Plasma Ordered By: Nando Wiggins on 08-13-2024 Anion gap [Moles/Vol] 15 mmol/L 5-15 [facility] Automated lymphocyte count a s percentage of total leukocytesOrdered By: Nando Wiggins on 08-13-2024 Lymphocytes/100 WBC Auto (Unsp spec) 22.5 % 19-41 [facility] BUN/creatinine ratioOrdered By: Nando Wiggins on 08-13-2024 Urea nitrogen/Creatinine [Mass ratio] 8.8 mg/mg Low 10-20 [facility] Basophil percentageOrdered B y: Nando Wiggins on 08-13-2024 Basophils/100 WBC (Bld) 0.5 % 0-1 [facility] Bilirubin directOrdered By: Nando Wiggins on 08-13-2024 Bilirubin.direct [Mass/Vol] mg/dL 0.00-0.30 [facility] Bilirubin, totalOrdered By: Nando Wiggins on 08-13-2024 Bilirubin [Mass/Vol] 0.25 mg/dL 0.00-1.30 [facility] Carbon dioxide, total [Moles /volume] in Central venous bloodOrdered By: Nando Wiggins on 08-13-2024 CO2 [Moles/Vol] 25.2 mmol/L 21.0-32.0 [facility] Chloride assayOrdered By: Kathie Wiggins on 08-13-2024 Chloride [Moles/Vol] 94 mmol/L Low 98-108 [facility] Eosinophil percentageOrdered By: Nando Wiggins on 08-13-2024 Eosinophils/100 WBC (Bld) 2.6 % 0-5 [facility] Erythrocyte distribution wid th ratioOrdered By: Nando Wiggins on 08-13-2024 Erythrocyte distribution width (RBC) [Ratio] 16.8 % High 11.6-14.6 [facility] Erythrocyte distribution wid th standard deviationOrdered By: Nando Wiggins on 08-13-2024 Erythrocyte distribution width (RBC) [Ratio] 57.7 fl High 35.1-43.9 [facility] Glomerular filtration rate ( GFR) estimation/1.73 sq m using serum, plasma, or whole bOrdered By: Nando Wiggins on 08-13-2024 GFR/1.73 sq M.predicted among non-blacks MDRD (S/P/Bld) [Vol rate/Area] 13 mL/min/{1.73_m2} Low >60 [facility] Hematocrit Auto (Bld) [Volum e fraction]Ordered By: Nando Wiggins on 08-13-2024 Hematocrit (Bld) [Volume fraction] 28.8 % Low 40-54 [facility] Hemoglobin A1c percentageOrd ered By: Nando Wiggins on 08-13-2024 HbA1c (Bld) [Mass fraction] 6.1 % >5.7 [facility] Hemoglobin measurementOrdere d By: Nando Wiggins on 08-13-2024 Hemoglobin (Bld) [Mass/Vol] 8.6 g/dL Low 13.0-16.5 [facility] Immature granulocytes/100 WB C Auto (Bld)Ordered By: Nando Wiggins on 08-13-2024 Immature granulocytes/100 WBC (Bld) 0.400 % 0.0-0.9 [facility] MCV (mean corpuscular volume ) determinationOrdered By: Nando Wiggins on 08-13-2024 MCV (RBC) [Entitic vol] 94.4 fL High 80-94 [facility] Mean corpuscular hemoglobin (MCH) determinationOrdered By: Nando Wiggins on 08-13-2024 MCH (RBC) [Entitic mass] 28.2 pg 27.0-32.0 [facility] Monocyte percentageOrdered B y: Nando Wiggins on 08-13-2024 Monocytes/100 WBC (Bld) 10.7 % High 0-10 [facility] Neutrophil percentageOrdered By: Nando Wiggins on 08-13-2024 Neutrophils/100 WBC (Bld) 63.3 % 47-70 [facility] No Panel InformationOrdered By: Nando Wiggins on 08-13-2024 18 U/L <38 [facility] Platelet countOrdered By: Kathie Wiggins on 08-13-2024 Platelets (Bld) [#/Vol] 265 10*3/uL 150-450 [facility] Potassium measurement (mass/ volume)Ordered By: Nando Wiggins on 08-13-2024 Potassium (Unsp spec) [Mass/Vol] 3.9 mmol/L 3.3-5.1 [facility] RBC Auto (Bld) [#/Vol]Ordere d By: Nando Wiggins on 08-13-2024 RBC (Bld) [#/Vol] 3.05 10*6/uL Low 4.6-6.2 [facility] Serum creatinine measurement (mass/volume)Ordered By: Nando Wiggins on 08-13-2024 Creatinine [Mass/Vol] 4.28 mg/dL High 0.70-1.20 [facility] Serum globulin measurementOr dered By: Nando Wiggins on 08-13-2024 Globulin (S) [Mass/Vol] 3.8 g/dL 2.2-4.2 [facility] Serum glucose measurement (m ass/volume)Ordered By: Nando Wiggins on 08-13-2024 Glucose [Mass/Vol] 96 mg/dL 70-99 [facility] Serum or plasma alanine hawkins otransferase (ALT) measurementOrdered By: Nando Wiggins on 08-13-2024 ALT [Catalytic activity/Vol] 8 U/L <47 [facility] Serum or plasma albumin lilli urement (mass/volume)Ordered By: Nando Wiggins on 08-13-2024 Albumin [Mass/Vol] 2.8 g/dL Low 3.4-4.8 [facility] Serum or plasma alkaline penelope sphatase measurementOrdered By: Nando Wiggins on 08-13-2024 ALP [Catalytic activity/Vol] 56 U/L 40-129 [facility] Serum or plasma calcium lilli urement (mass/volume)Ordered By: Nando Wiggins on 08-13-2024 Calcium [Mass/Vol] 9.0 mg/dL 7.6-11.0 [facility] Serum or plasma urea nitroge n measurement (mass/volume)Ordered By: Nando Wiggins on 08-13-2024 Urea nitrogen [Mass/Vol] 38 mg/dL High 4-19 [facility] Sodium levelOrdered By: Deb Wiggins on 08-13-2024 Sodium [Moles/Vol] 134 mmol/L 133-145 [facility] Total proteinOrdered By: Sinan kermitwolf Wiggins on 08-13-2024 Protein [Mass/Vol] 6.6 g/dL 5.9-8.4 [facility] Vitamin B12 ser/plasOrdered By: Nando Wiggins on 08-13-2024 Cobalamin (Vitamin B12) [Mass/Vol] 782 pg/mL 180-914 [facility] White blood cell (WBC) count Ordered By: Nando Wiggins on 08-13-2024 WBC (Bld) [#/Vol] 8.0 10*3/uL 4.4-11.0 [facility] Absolute lymphocyte countOrd ered By: Nando Wiggins on 08-06-2024 Lymphocytes Auto (Unsp spec) [#/Vol] 1.82 10*3/uL 0.83-4.51 [facility] Anion gap in Serum or Plasma Ordered By: Nando Wiggins on 08-06-2024 Anion gap [Moles/Vol] 14 mmol/L 5-15 [facility] Automated lymphocyte count a s percentage of total leukocytesOrdered By: Nando Wiggins on 08-06-2024 Lymphocytes/100 WBC Auto (Unsp spec) 19.7 % 19-41 [facility] BUN/creatinine ratioOrdered By: Nando Wiggins on 08-06-2024 Urea nitrogen/Creatinine [Mass ratio] 11.0 mg/mg 10-20 [facility] Basophil percentageOrdered B y: Nando Wiggins on 08-06-2024 Basophils/100 WBC (Bld) 0.4 % 0-1 [facility] Carbon dioxide, total [Moles /volume] in Central venous bloodOrdered By: Nando Wiggins on 08-06-2024 CO2 [Moles/Vol] 26.0 mmol/L 21.0-32.0 [facility] Chloride assayOrdered By: Kathie Wiggins on 08-06-2024 Chloride [Moles/Vol] 92 mmol/L Low 98-108 [facility] Eosinophil percentageOrdered By: Nando Wiggins on 08-06-2024 Eosinophils/100 WBC (Bld) 2.6 % 0-5 [facility] Erythrocyte distribution wid th ratioOrdered By: Debsrinathwolf Edenlakshmidesiree on 08-06-2024 Erythrocyte distribution width (RBC) [Ratio] 16.6 % High 11.6-14.6 [facility] Erythrocyte distribution wid th standard deviationOrdered By: fili Wiggins on 08-06-2024 Erythrocyte distribution width (RBC) [Ratio] 56.6 fl High 35.1-43.9 [facility] Glomerular filtration rate ( GFR) estimation/1.73 sq m using serum, plasma, or whole bOrdered By: biancacincinnatiwolf Wiggins on 08-06-2024 GFR/1.73 sq M.predicted among non-blacks MDRD (S/P/Bld) [Vol rate/Area] 12 mL/min/{1.73_m2} Low >60 [facility] Hematocrit Auto (Bld) [Volum e fraction]Ordered By: Nando Wiggins on 08-06-2024 Hematocrit (Bld) [Volume fraction] 27.3 % Low 40-54 [facility] Hemoglobin measurementOrdere d By: biancacincinnatiwolf Wiggins on 08-06-2024 Hemoglobin (Bld) [Mass/Vol] 8.1 g/dL Low 13.0-16.5 [facility] Immature granulocytes/100 WB C Auto (Bld)Ordered By: Nando Wiggins on 08-06-2024 Immature granulocytes/100 WBC (Bld) 1.000 % High 0.0-0.9 [facility] MCV (mean corpuscular volume ) determinationOrdered By: Nando Wiggins on 08-06-2024 MCV (RBC) [Entitic vol] 93.5 fL 80-94 [facility] Mean corpuscular hemoglobin (MCH) determinationOrdered By: biancacincinnatiwolf Wiggins on 08-06-2024 MCH (RBC) [Entitic mass] 27.7 pg 27.0-32.0 [facility] Monocyte percentageOrdered B y: Nando Wiggins on 08-06-2024 Monocytes/100 WBC (Bld) 12.1 % High 0-10 [facility] Neutrophil percentageOrdered By: Kathiebiancasrinathwolf Edenlakshmidesiree on 08-06-2024 Neutrophils/100 WBC (Bld) 64.2 % 47-70 [facility] Platelet countOrdered By: Kathie rehanwolf Edenlakshmidesiree on 08-06-2024 Platelets (Bld) [#/Vol] 263 10*3/uL 150-450 [facility] Potassium measurement (mass/ volume)Ordered By: Kathiebiancasrinathwolf Edenlakshmidesiree on 08-06-2024 Potassium (Unsp spec) [Mass/Vol] 3.4 mmol/L 3.3-5.1 [facility] RBC Auto (Bld) [#/Vol]Ordere d By: Kathiebiancasrinathwolf Edencheko on 08-06-2024 RBC (Bld) [#/Vol] 2.92 10*6/uL Low 4.6-6.2 [facility] Serum creatinine measurement (mass/volume)Ordered By: Kathiebiancasrinathwolf Edenlakshmidesiree on 08-06-2024 Creatinine [Mass/Vol] 4.43 mg/dL High 0.70-1.20 [facility] Serum glucose measurement (m ass/volume)Ordered By: Kathiebiancasrinathwolf Edenlakshmidesiree on 08-06-2024 Glucose [Mass/Vol] 318 mg/dL High 70-99 [facility] Serum or plasma calcium lilli urement (mass/volume)Ordered By: Kathiebiancasrinathwolf Edenlakshmidesiree on 08-06-2024 Calcium [Mass/Vol] 8.7 mg/dL 7.6-11.0 [facility] Serum or plasma urea nitroge n measurement (mass/volume)Ordered By: Nando Wiggins on 08-06-2024 Urea nitrogen [Mass/Vol] 49 mg/dL High 4-19 [facility] Sodium levelOrdered By: Deb quintana Meeklakshmidesiree on 08-06-2024 Sodium [Moles/Vol] 131 mmol/L Low 133-145 [facility] White blood cell (WBC) count Ordered By: Nando Edenlakshmidesiree on 08-06-2024 WBC (Bld) [#/Vol] 9.3 10*3/uL 4.4-11.0 [facility] Absolute lymphocyte countOrd ered By: Des Garcia on 08-01-2024 Lymphocytes Auto (Unsp spec) [#/Vol] 1.79 10*3/uL 0.83-4.51 [facility] Automated blood erythrocyte countOrdered By: Des Garica on 08-01-2024 RBC (Bld) [#/Vol] 2.95 10*6/uL Low 4.6-6.2 [facility] Comment on above: Performed By: #### L 100.0100 ####[facility] [address] [facility] [id number] Automated blood hematocrit ( percentage)Ordered By: Des Jallohne on 08-01-2024 Hematocrit (Bld) [Volume fraction] 27.6 % Low 40-54 [facility] Comment on above: Performed By: #### L 100.0100 ####[facility] [address] [place] [id number] Automated lymphocyte count a s percentage of total leukocytesOrdered By: Des Jallohne on 08-01-2024 Lymphocytes/100 WBC Auto (Unsp spec) 20.9 % 19-41 [facility] Basophil percentageOrdered B y: Des Jallohne on 08-01-2024 Basophils/100 WBC (Bld) 0.7 % Normal 0-1 [facility] Comment on above: Performed By: #### L 100.0100 ####[facility] [address] [place] [id number] CBC W/Diff, Automatedon 07-21 Absolute Lymph 1.79 X10 3/uL Normal 0.83-4.51 [facility] Comment on above: Performed By: #### L 100.0100 ####[facility] [address] [facility] [phone] Absolute Neut 5.3 X10 3/uL Normal 2.0-7.7 [facility] Comment on above: Performed By: #### L 100.0100 ####[facility] [address] [facility] [address] IG% 0.500 Normal 0.0-0.9 [facility] Comment on above: Result Comment: IG% - Immature Granulocytes (promyelocytes, myelocytes andmetamyelocytes) > 1% indicates that a LEFT SHIFT is Present. Performed By: #### L 100.0100 ####[facility] [address] [place], [address] Lymphocytes/100 WBC (Bld) 20.9 % Normal 19-41 [facility] Comment on above: Performed By: #### L 100.0100 ####[facility] [address] [place], [address] MCHC (RBC) [Mass/Vol] 29.3 g/dL Low 32-36 [facility] Comment on above: Performed By: #### L 100.0100 ####[facility] [address] [place], [address] Nucleated RBC (Bld) [#/Vol] 0 10*3/uL Normal 0-5 [facility] Comment on above: Performed By: #### L 100.0100 ####[facility] [address] [place], [address] Platelet mean volume (Bld) [Entitic vol] 10.6 fL Normal 6.2-12.0 [facility] Comment on above: Performed By: #### L 100.0100 ####[facility] [address] [place], [address] RDW SD 57.8 fl High 35.1-43.9 [facility] Comment on above: Performed By: #### L 100.0100 ####[facility] [address] [place], [address] Emergency Department Summary on 08-01-2024 [address] Normal [facility] Eosinophil percentageOrdered By: Des Garcia on 08-01-2024 Eosinophils/100 WBC (Bld) 3.9 % Normal 0-5 [facility] Comment on above: Performed By: #### L 100.0100 ####[facility] [address] [place], [place], [phone] Erythrocyte distribution wid th ratioOrdered By: Des Garcia on 08-01-2024 Erythrocyte distribution width (RBC) [Ratio] 16.9 % High 11.6-14.6 [facility] Comment on above: Performed By: #### L 100.0100 ####[facility] [address] [place], [place], [phone]) Erythrocyte distribution wid th standard deviationOrdered By: Des Garcia on 08-01-2024 Erythrocyte distribution width (RBC) [Ratio] 57.8 fl High 35.1-43.9 [facility] Foot min 3 Viewson 5 Foot min [address] [facility] Hemoglobin measurementOrdere d By: Des Garcia on 08-01-2024 Hemoglobin (Bld) [Mass/Vol] 8.1 g/dL Low 13.0-16.5 [facility] Comment on above: Performed By: #### L 100.0100 ####[facility] [address] [place], [place], [phone] Immature granulocytes/100 WB C Auto (Bld)Ordered By: Des Garcia on 08-01-2024 Immature granulocytes/100 WBC (Bld) 0.500 % 0.0-0.9 [facility] MCV (mean corpuscular volume ) determinationOrdered By: Des Garcia on 08-01-2024 MCV (RBC) [Entitic vol] 93.6 fL Normal 80-94 [facility] Comment on above: Performed By: #### L 100.0100 ####[facility] [address] [place], [place], [phone](776) Mean corpuscular hemoglobin (MCH) determinationOrdered By: Des Garcia on 08-01-2024 MCH (RBC) [Entitic mass] 27.5 pg Normal 27.0-32.0 [facility] Comment on above: Performed By: #### L 100.0100 ####[facility] [address] [place], [address] Monocyte percentageOrdered B y: Des Garcia on 08-01-2024 Monocytes/100 WBC (Bld) 12.3 % High 0-10 [facility] Comment on above: Performed By: #### L 100.0100 ####[facility] [address] [place], [address] Neutrophil percentageOrdered By: Des Garcia on 08-01-2024 Neutrophils/100 WBC (Bld) 61.7 % Normal 47-70 [facility] Comment on above: Performed By: #### L 100.0100 ####[facility] [address] [place], [address] Platelet countOrdered By: Kana Garcia on 08-01-2024 Platelets (Bld) [#/Vol] 290 10*3/uL Normal 150-450 [facility] Comment on above: Performed By: #### L 100.0100 ####[facility] [address] [place], [address] White blood cell (WBC) count Ordered By: Des Garcia on 08-01-2024 WBC (Bld) [#/Vol] 8.6 10*3/uL Normal 4.4-11.0 [facility] Comment on above: Performed By: #### L 100.0100 ####[facility] [address] [place], [address] Absolute lymphocyte countOrd ered By: Nando Wiggins on 07-30-2024 Lymphocytes Auto (Unsp spec) [#/Vol] 1.74 10*3/uL 0.83-4.51 [facility] Anion gap in Serum or Plasma Ordered By: Nando Wiggins on 07-30-2024 Anion gap [Moles/Vol] 16 mmol/L High 5-15 [facility] Automated lymphocyte count a s percentage of total leukocytesOrdered By: Nando Wiggins on 07-30-2024 Lymphocytes/100 WBC Auto (Unsp spec) 19.2 % 19-41 [facility] BUN/creatinine ratioOrdered By: Nando Wiggins on 07-30-2024 Urea nitrogen/Creatinine [Mass ratio] 8.4 mg/mg Low 10-20 [facility] Basophil percentageOrdered B y: Nando Wiggins on 07-30-2024 Basophils/100 WBC (Bld) 0.6 % 0-1 [facility] Carbon dioxide, total [Moles /volume] in Central venous bloodOrdered By: Nando Wiggins on 07-30-2024 CO2 [Moles/Vol] 26.4 mmol/L 21.0-32.0 [facility] Chloride assayOrdered By: Kathie Wiggins on 07-30-2024 Chloride [Moles/Vol] 91 mmol/L Low 98-108 [facility] Eosinophil percentageOrdered By: Nando Wiggins on 07-30-2024 Eosinophils/100 WBC (Bld) 2.8 % 0-5 [facility] Erythrocyte distribution wid th ratioOrdered By: Nando Wiggins on 07-30-2024 Erythrocyte distribution width (RBC) [Ratio] 17.2 % High 11.6-14.6 [facility] Erythrocyte distribution wid th standard deviationOrdered By: Nando Wiggins on 07-30-2024 Erythrocyte distribution width (RBC) [Ratio] 58.1 fl High 35.1-43.9 [facility] Glomerular filtration rate ( GFR) estimation/1.73 sq m using serum, plasma, or whole bOrdered By: Nando Wiggins on 07-30-2024 GFR/1.73 sq M.predicted among non-blacks MDRD (S/P/Bld) [Vol rate/Area] 13 mL/min/{1.73_m2} Low >60 [facility] Hematocrit Auto (Bld) [Volum e fraction]Ordered By: Nando Wiggins on 07-30-2024 Hematocrit (Bld) [Volume fraction] 26.5 % Low 40-54 [facility] Hemoglobin measurementOrdere d By: Nando Wiggins on 07-30-2024 Hemoglobin (Bld) [Mass/Vol] 8.1 g/dL Low 13.0-16.5 [facility] Immature granulocytes/100 WB C Auto (Bld)Ordered By: Nando Edenlakshmidesiree on 07-30-2024 Immature granulocytes/100 WBC (Bld) 0.800 % 0.0-0.9 [facility] MCV (mean corpuscular volume ) determinationOrdered By: Nando Wiggins on 07-30-2024 MCV (RBC) [Entitic vol] 92.3 fL 80-94 [facility] Mean corpuscular hemoglobin (MCH) determinationOrdered By: Nando Edenlakshmidesiree on 07-30-2024 MCH (RBC) [Entitic mass] 28.2 pg 27.0-32.0 [facility] Monocyte percentageOrdered B y: Nando Edenlakshmidesiree on 07-30-2024 Monocytes/100 WBC (Bld) 9.2 % 0-10 [facility] Neutrophil percentageOrdered By: biancalilian Meeklakshmidesiree on 07-30-2024 Neutrophils/100 WBC (Bld) 67.4 % 47-70 [facility] Platelet countOrdered By: Kathie fili Meeklakshmidesiree on 07-30-2024 Platelets (Bld) [#/Vol] 334 10*3/uL 150-450 [facility] Potassium measurement (mass/ volume)Ordered By: Nando Wiggins on 07-30-2024 Potassium (Unsp spec) [Mass/Vol] 3.6 mmol/L 3.3-5.1 [facility] RBC Auto (Bld) [#/Vol]Ordere d By: Nando Meeklakshmideisree on 07-30-2024 RBC (Bld) [#/Vol] 2.87 10*6/uL Low 4.6-6.2 [facility] Serum creatinine measurement (mass/volume)Ordered By: Nando Wiggins on 07-30-2024 Creatinine [Mass/Vol] 4.20 mg/dL High 0.70-1.20 [facility] Serum glucose measurement (m ass/volume)Ordered By: Nando Wiggins on 07-30-2024 Glucose [Mass/Vol] 173 mg/dL High 70-99 [facility] Serum or plasma calcium lilli urement (mass/volume)Ordered By: Nando Wiggins on 07-30-2024 Calcium [Mass/Vol] 8.5 mg/dL 7.6-11.0 [facility] Serum or plasma urea nitroge n measurement (mass/volume)Ordered By: Nando Wiggins on 07-30-2024 Urea nitrogen [Mass/Vol] 35 mg/dL High 4-19 [facility] Sodium levelOrdered By: Deb Wiggins on 07-30-2024 Sodium [Moles/Vol] 133 mmol/L 133-145 [facility] White blood cell (WBC) count Ordered By: Nando Wiggins on 07-30-2024 WBC (Bld) [#/Vol] 9.1 10*3/uL 4.4-11.0 [facility] Acid Fast Bacillus Cultureon 07-25-2024 tAFBC [facility] Comment on above: Performed By: #### M 100.3000, M600.2200, M300.2000, M100.4001, M300.3000, M100.2000, M600.1999 ####[facility] [address] [place], [place], [id number] Acid Fast Bacillus Smear/Flu oron 07-25-[address] [facility] Comment on above: Performed By: #### M 100.3000, M600.2200, M300.2000, M100.4001, M300.3000, M100.2000, M600.2000 ####[facility] [address] [place], [place], [id number] Culture, Fungus 8482on 07-[address] [facility] Comment on above: Performed By: #### M 100.3000, M600.2200, M300.2000, M100.4001, M300.3000, M100.2000, M600.2000 ####[facility] [address] [place], [address] Fungus Stain 8136on 07-26-[address] [facility] Comment on above: Performed By: #### M 100.3000, M600.2200, M300.2000, M100.4001, M300.3000, M100.2000, M600.2000 ####[facility] [address] [place], [address] Absolute lymphocyte countOrd ered By: Nando Wiggins on 07-23-2024 Lymphocytes Auto (Unsp spec) [#/Vol] 2.13 10*3/uL 0.83-4.51 [facility] Automated lymphocyte count a s percentage of total leukocytesOrdered By: Nando Wiggins on 07-23-2024 Lymphocytes/100 WBC Auto (Unsp spec) 17.3 % Low 19-41 [facility] BUN/creatinine ratioOrdered By: Nando Wiggins on 07-23-2024 Urea nitrogen/Creatinine [Mass ratio] 14.6 mg/mg 10- [facility] Basic Metabolic Profile (BMP )on 07-23-2024 BUN Normal -18 [facility] Comment on above: Result Comment: Canc elled via OM: Order cancelled - Patient discharged Performed By: #### L 100.0100, L500.2500 ####[facility] [address] [place], [address] BUN/CRE Normal 10- [facility] Comment on above: Result Comment: Canc elled via OM: Order cancelled - Patient discharged Performed By: #### L 100.0100, L500.2500 ####[facility] [address] [place], [address] Calcium Normal 8.5-10.1 [facility] Comment on above: Result Comment: Canc elled via OM: Order cancelled - Patient discharged Performed By: #### L 100.0100, L500.2500 ####[facility] [address] [place], [address] CL Normal 98-107 [facility] Comment on above: Result Comment: Canc elled via OM: Order cancelled - Patient discharged Performed By: #### L 100.0100, L500.2500 ####[facility] [address] [place], [address] CO2 Normal 21.0-32.0 [facility] Comment on above: Result Comment: Canc elled via OM: Order cancelled - Patient discharged Performed By: #### L 100.0100, L500.2500 ####[facility] [address] [place], [address] CREAT,SERUM Normal 0.70-1.30 [facility] Comment on above: Result Comment: Canc elled via OM: Order cancelled - Patient discharged Performed By: #### L 100.0100, L500.2500 ####[facility] [address] [place], [address] eGFR Normal >60 [facility] Comment on above: Result Comment: Canc elled via OM: Order cancelled - Patient discharged Performed By: #### L 100.0100, L500.2500 ####[facility] [address] [place], [address] EST GFR - AA Normal >60 [facility] Comment on above: Result Comment: Canc elled via OM: Order cancelled - Patient discharged Performed By: #### L 100.0100, L500.2500 ####[facility] [address] [place], [address] GAP Normal 5-15 [facility] Comment on above: Result Comment: Canc elled via OM: Order cancelled - Patient discharged Performed By: #### L 100.0100, L500.2500 ####[facility] [address] [place], [address] GLU Normal 74-106 [facility] Comment on above: Result Comment: Canc elled via OM: Order cancelled - Patient discharged Performed By: #### L 100.0100, L500.2500 ####[facility] [address] [place], [address] Potassium Normal 3.5-5.1 [facility] Comment on above: Result Comment: Canc elled via OM: Order cancelled - Patient discharged Performed By: #### L 100.0100, L500.2500 ####[facility] [address] [place], [address] Basic Metabolic Profile (BMP) Normal 136-145 [facility] Comment on above: Result Comment: Canc elled via OM: Order cancelled - Patient discharged Performed By: #### L 100.0100, L500.2500 ####[facility] [address] [place], [address] Basophil percentageOrdered B y: Efewongwolf Brownee on 07-23-2024 Basophils/100 WBC (Bld) 0.7 % 0-1 [facility] CBC W/Diff, Automatedon 03 Absolute Neut Normal 2.0-7.7 [facility] Comment on above: Result Comment: Canc elled via OM: Order cancelled - Patient discharged Performed By: #### L 100.0100, L500.2500 ####[facility] [address] [place], [address] HCT Normal 40-54 [facility] Comment on above: Result Comment: Canc elled via OM: Order cancelled - Patient discharged Performed By: #### L 100.0100, L500.2500 ####[facility] [address] [place], [address] HGB Normal 13.0-16.5 [facility] Comment on above: Result Comment: Canc elled via OM: Order cancelled - Patient discharged Performed By: #### L 100.0100, L500.2500 ####[facility] [address] [place], [address] MCH Normal 27.0-32.0 [facility] Comment on above: Result Comment: Canc elled via OM: Order cancelled - Patient discharged Performed By: #### L 100.0100, L500.2500 ####[facility] [address] [place], [address] MCHC Normal 32-36 [facility] Comment on above: Result Comment: Canc elled via OM: Order cancelled - Patient discharged Performed By: #### L 100.0100, L500.2500 ####[facility] [address] [place], [address] MCV Normal 80-94 [facility] Comment on above: Result Comment: Canc elled via OM: Order cancelled - Patient discharged Performed By: #### L 100.0100, L500.2500 ####[facility] [address] [place], [address] NEUT% Normal 47-70 [facility] Comment on above: Result Comment: Canc elled via OM: Order cancelled - Patient discharged Performed By: #### L 100.0100, L500.2500 ####[facility] [address] [place], [address] PLT Normal 150-450 [facility] Comment on above: Result Comment: Canc elled via OM: Order cancelled - Patient discharged Performed By: #### L 100.0100, L500.2500 ####[facility] [address] [place], [address] RBC Normal 4.6-6.2 [facility] Comment on above: Result Comment: Canc elled via OM: Order cancelled - Patient discharged Performed By: #### L 100.0100, L500.2500 ####[facility] [address] [place], [address] RDW CV Normal 11.6-14.6 [facility] Comment on above: Result Comment: Canc elled via OM: Order cancelled - Patient discharged Performed By: #### L 100.0100, L500.2500 ####[facility] [address] [place], [address] RDW SD Normal 35.1-43.9 [facility] Comment on above: Result Comment: Canc elled via OM: Order cancelled - Patient discharged Performed By: #### L 100.0100, L500.2500 ####[facility] [address] [place], [address] WBC Normal 4.4-11.0 [facility] Comment on above: Result Comment: Canc elled via OM: Order cancelled - Patient discharged Performed By: #### L 100.0100, L500.2500 ####[facility] [address] [place], [address] Carbon dioxide measurementOr dered By: Nando Wiggins on 07-23-2024 CO2 [Moles/Vol] 27.0 mmol/L 22.0-29.0 [facility] Chloride measurementOrdered By: Nando Wiggins on 07-23-2024 Chloride [Moles/Vol] 95 mmol/L Low 96-108 [facility] Comprehensive Metabolic Prof ilon 07-23-2024 ALB Normal 3.4-4.8 [facility] Comment on above: Result Comment: NOT DRAWN PATIENT DIDN'T COME TO LAB Performed By: #### L 500.4050 ####[facility] [address] [place], [address] ALK PHOS Normal 40-129 [facility] Comment on above: Result Comment: NOT DRAWN PATIENT DIDN'T COME TO LAB Performed By: #### L 500.4050 ####[facility] [address] [place], [address] ALT Normal <=46 [facility] Comment on above: Result Comment: NOT DRAWN PATIENT DIDN'T COME TO LAB Performed By: #### L 500.4050 ####[facility] [address] [place], [address] Anion Gap Normal 5-15 [facility] Comment on above: Result Comment: NOT DRAWN PATIENT DIDN'T COME TO LAB Performed By: #### L 500.4050 ####[facility] [address] [place], [address] AST Normal <=37 [facility] Comment on above: Result Comment: NOT DRAWN PATIENT DIDN'T COME TO LAB Performed By: #### L 500.4050 ####[facility] [address] [place], [address] Chloride Normal 96-108 [facility] Comment on above: Result Comment: NOT DRAWN PATIENT DIDN'T COME TO LAB Performed By: #### L 500.4050 ####[facility] [address] [place], [address] Sodium Normal 133-145 [facility] Comment on above: Result Comment: NOT DRAWN PATIENT DIDN'T COME TO LAB Performed By: #### L 500.4050 ####[facility] [address] [place], [address] T BILI Normal 0.00-1.30 [facility] Comment on above: Result Comment: NOT DRAWN PATIENT DIDN'T COME TO LAB Performed By: #### L 500.4050 ####[facility] [address] [place], [address] T PROT Normal 5.9-8.4 [facility] Comment on above: Result Comment: NOT DRAWN PATIENT DIDN'T COME TO LAB Performed By: #### L 500.4050 ####[facility] [address] [place], [address] Culture, Anaerobic Any Sourc reed 07-23-[address] [facility] Comment on above: Performed By: #### M 100.2910, M100.4001, M100.1999 ####[facility] [address] [place], [address] Eosinophil percentageOrdered By: Nando Wiggins on 07-23-2024 Eosinophils/100 WBC (Bld) 1.3 % 0-5 [facility] Erythrocyte distribution wid th ratioOrdered By: Nando Wiggins on 07-23-2024 Erythrocyte distribution width (RBC) [Ratio] 17.1 % High 11.6-14.6 [facility] Erythrocyte distribution wid th standard deviationOrdered By: Debcincinnatiwolf Wiggins on 07-23-2024 Erythrocyte distribution width (RBC) [Ratio] 58.3 fl High 35.1-43.9 [facility] Glomerular filtration rate ( GFR) estimation/1.73 sq m using serum, plasma, or whole bOrdered By: Nando Wiggins on 07-23-2024 GFR/1.73 sq M.predicted among non-blacks MDRD (S/P/Bld) [Vol rate/Area] 13 mL/min/{1.73_m2} Low >60 [facility] Hematocrit Auto (Bld) [Volum e fraction]Ordered By: Nando Wiggins on 07-23-2024 Hematocrit (Bld) [Volume fraction] 26.1 % Low 40-54 [facility] Hemoglobin measurementOrdere d By: Nando Wiggins on 07-23-2024 Hemoglobin (Bld) [Mass/Vol] 7.8 g/dL Low 13.0-16.5 [facility] Immature granulocytes/100 WB C Auto (Bld)Ordered By: Nando Wiggins on 07-23-2024 Immature granulocytes/100 WBC (Bld) 2.100 % High 0.0-0.9 [facility] MCV (mean corpuscular volume ) determinationOrdered By: Nando Wiggins on 07-23-2024 MCV (RBC) [Entitic vol] 93.5 fL 80-94 [facility] Mean corpuscular hemoglobin (MCH) determinationOrdered By: Nando Wiggins on 07-23-2024 MCH (RBC) [Entitic mass] 28.0 pg 27.0-32.0 [facility] Monocyte percentageOrdered B y: Nando Wiggins on 07-23-2024 Monocytes/100 WBC (Bld) 7.7 % 0-10 [facility] Neutrophil percentageOrdered By: Nando Wiggins on 07-23-2024 Neutrophils/100 WBC (Bld) 70.9 % High 47-70 [facility] Platelet countOrdered By: Kathie biancalilian Wiggins on 07-23-2024 Platelets (Bld) [#/Vol] 451 10*3/uL High 150-450 [facility] RBC Auto (Bld) [#/Vol]Ordere d By: Nando Wiggins on 07-23-2024 RBC (Bld) [#/Vol] 2.79 10*6/uL Low 4.6-6.2 [facility] Serum creatinine measurement (mass/volume)Ordered By: Nando Wiggins on 07-23-2024 Creatinine [Mass/Vol] 4.11 mg/dL High 0.70-1.20 [facility] Serum glucose measurement (m ass/volume)Ordered By: Nando Wiggins on 07-23-2024 Glucose [Mass/Vol] 147 mg/dL High 70-99 [facility] Serum or plasma anion gap de termination (moles/volume)Ordered By: Nando Wiggins on 07-23-2024 Anion gap [Moles/Vol] 12 mmol/L 5-15 [facility] Serum or plasma calcium lilli urement (mass/volume)Ordered By: Nando Wiggins on 07-23-2024 Calcium [Mass/Vol] 8.4 mg/dL 7.6-11.0 [facility] Serum or plasma potassium me asurementOrdered By: Nando Wiggins on 07-23-2024 Potassium [Moles/Vol] 5.0 mmol/L 3.3-5.1 [facility] Serum or plasma sodium measu rement (moles/volume)Ordered By: Nando Wiggins on 07-23-2024 Sodium [Moles/Vol] 134 mmol/L 133-145 [facility] Serum or plasma urea nitroge n measurement (mass/volume)Ordered By: Debsrinathwolf Wiggins on 07-23-2024 Urea nitrogen [Mass/Vol] 60 mg/dL High 4-19 [facility] White blood cell (WBC) count Ordered By: Kathiebiancalilian Meeklakshmidesiree on 07-23-2024 WBC (Bld) [#/Vol] 12.3 10*3/uL High 4.4-11.0 [facility] W[facility] Ctr History AND Physic ariella 07-23-2024 Wound Ctr History & Physical Normal [facility] Basic Metabolic Profile (BMP )on 07-22-2024 CL Normal 98-107 [facility] Comment on above: Result Comment: Canc elled via OM: Order cancelled - Patient discharged Performed By: #### L 500.2500, L100.0100 ####[facility] [address] [place], [address] EST GFR - AA Normal >60 [facility] Comment on above: Result Comment: Canc elled via OM: Order cancelled - Patient discharged Performed By: #### L 500.2500, L100.0100 ####[facility] [address] [place], [address] GAP Normal 5-15 [facility] Comment on above: Result Comment: Canc elled via OM: Order cancelled - Patient discharged Performed By: #### L 500.2500, L100.0100 ####[facility] [address] [place], [address] Basic Metabolic Profile (BMP) Normal 136-145 [facility] Comment on above: Result Comment: Canc elled via OM: Order cancelled - Patient discharged Performed By: #### L 500.2500, L100.0100 ####[facility] [address] [place], [address] CBC W/Diff, Automatedon 03-0 2-2025 Absolute Neut Normal 2.0-7.7 [facility] Comment on above: Result Comment: Canc elled via OM: Order cancelled - Patient discharged Performed By: #### L 500.2500, L100.0100 ####[facility] [address] [place], [address] HCT Normal 40-54 [facility] Comment on above: Result Comment: Canc elled via OM: Order cancelled - Patient discharged Performed By: #### L 500.2500, L100.0100 ####[facility] [address] [place], [address] HGB Normal 13.0-16.5 [facility] Comment on above: Result Comment: Canc elled via OM: Order cancelled - Patient discharged Performed By: #### L 500.2500, L100.0100 ####[facility] [address] [place], [address] MCH Normal 27.0-32.0 [facility] Comment on above: Result Comment: Canc elled via OM: Order cancelled - Patient discharged Performed By: #### L 500.2500, L100.0100 ####[facility] [address] [place], [address] MCHC Normal 32-36 [facility] Comment on above: Result Comment: Canc elled via OM: Order cancelled - Patient discharged Performed By: #### L 500.2500, L100.0100 ####[facility] [address] [place], [address] MCV Normal 80-94 [facility] Comment on above: Result Comment: Canc elled via OM: Order cancelled - Patient discharged Performed By: #### L 500.2500, L100.0100 ####[facility] [address] [place], [address] NEUT% Normal 47-70 [facility] Comment on above: Result Comment: Canc elled via OM: Order cancelled - Patient discharged Performed By: #### L 500.2500, L100.0100 ####[facility] [address] [place], [address] PLT Normal 150-450 [facility] Comment on above: Result Comment: Canc elled via OM: Order cancelled - Patient discharged Performed By: #### L 500.2500, L100.0100 ####[facility] [address] [place], [address] RBC Normal 4.6-6.2 [facility] Comment on above: Result Comment: Canc elled via OM: Order cancelled - Patient discharged Performed By: #### L 500.2500, L100.0100 ####[facility] [address] [place], [address] RDW CV Normal 11.6-14.6 [facility] Comment on above: Result Comment: Canc elled via OM: Order cancelled - Patient discharged Performed By: #### L 500.2500, L100.0100 ####[facility] [address] [place], [address] RDW SD Normal 35.1-43.9 [facility] Comment on above: Result Comment: Canc elled via OM: Order cancelled - Patient discharged Performed By: #### L 500.2500, L100.0100 ####[facility] [address] [place], [address] WBC Normal 4.4-11.0 [facility] Comment on above: Result Comment: Canc elled via OM: Order cancelled - Patient discharged Performed By: #### L 500.2500, L100.0100 ####[facility] [address] [place], [address] Comprehensive Metabolic Prof ilon 07-22-2024 BUN Normal 7-18 [facility] Comment on above: Result Comment: NOT DRAWN PATIENT DIDN'T COME TO LAB Performed By: #### L 500.4050 ####[facility] [address] [place], [address] Result Comment: Canc elled via OM: Order cancelled - Patient discharged Performed By: #### L 500.2500, L100.0100 ####[facility] [address] [place], [address] BUN/CRE Normal 10-20 [facility] Comment on above: Result Comment: NOT DRAWN PATIENT DIDN'T COME TO LAB Performed By: #### L 500.4050 ####[facility] [address] [place], [address] Result Comment: Canc elled via OM: Order cancelled - Patient discharged Performed By: #### L 500.2500, L100.0100 ####[facility] [address] [place], [address] Calcium Normal 8.5-10.1 [facility] Comment on above: Result Comment: NOT DRAWN PATIENT DIDN'T COME TO LAB Performed By: #### L 500.4050 ####[facility] [address] [place], [address] Result Comment: Canc elled via OM: Order cancelled - Patient discharged Performed By: #### L 500.2500, L100.0100 ####[facility] [address] [place], [address] CO2 Normal 21.0-32.0 [facility] Comment on above: Result Comment: NOT DRAWN PATIENT DIDN'T COME TO LAB Performed By: #### L 500.4050 ####[facility] [address] [place], [address] Result Comment: Canc elled via OM: Order cancelled - Patient discharged Performed By: #### L 500.2500, L100.0100 ####[facility] [address] [place], [address] CREAT,SERUM Normal 0.70-1.30 [facility] Comment on above: Result Comment: NOT DRAWN PATIENT DIDN'T COME TO LAB Performed By: #### L 500.4050 ####[facility] [address] [place], [address] Result Comment: Canc elled via OM: Order cancelled - Patient discharged Performed By: #### L 500.2500, L100.0100 ####[facility] [address] [place], [address] eGFR Normal >60 [facility] Comment on above: Result Comment: NOT DRAWN PATIENT DIDN'T COME TO LAB Performed By: #### L 500.4050 ####[facility] [address] [place], [address] Result Comment: Canc elled via OM: Order cancelled - Patient discharged Performed By: #### L 500.2500, L100.0100 ####[facility] [address] [place], [address] GLU Normal 74-106 [facility] Comment on above: Result Comment: NOT DRAWN PATIENT DIDN'T COME TO LAB Performed By: #### L 500.4050 ####[facility] [address] [place], [address] Result Comment: Canc elled via OM: Order cancelled - Patient discharged Performed By: #### L 500.2500, L100.0100 ####[facility] [address] [place], [address] Potassium Normal 3.5-5.1 [facility] Comment on above: Result Comment: NOT DRAWN PATIENT DIDN'T COME TO LAB Performed By: #### L 500.4050 ####[facility] [address] [place], [address] Result Comment: Canc elled via OM: Order cancelled - Patient discharged Performed By: #### L 500.2500, L100.0100 ####[facility] [address] [place], [address] Culture, Blood (WB)on 2024 CUB No growth in 5 days. Normal [facility] Comment on above: Performed By: #### M 200.1000 ####[facility] [address] [place], [address] Basic Metabolic Profile (BMP )on 07-21-2024 BUN Normal 7-18 [facility] Comment on above: Result Comment: Canc elled via OM: Order cancelled - Patient discharged Performed By: #### L 100.0100, L500.2500 ####[facility] [address] [place], [address] BUN/CRE Normal 10-20 [facility] Comment on above: Result Comment: Canc elled via OM: Order cancelled - Patient discharged Performed By: #### L 100.0100, L500.2500 ####[facility] [address] [place], [address] Calcium Normal 8.5-10.1 [facility] Comment on above: Result Comment: Canc elled via OM: Order cancelled - Patient discharged Performed By: #### L 100.0100, L500.2500 ####[facility] [address] [place], [address] CL Normal 98-107 [facility] Comment on above: Result Comment: Canc elled via OM: Order cancelled - Patient discharged Performed By: #### L 100.0100, L500.2500 ####[facility] [address] [place], [address] CO2 Normal 21.0-32.0 [facility] Comment on above: Result Comment: Canc elled via OM: Order cancelled - Patient discharged Performed By: #### L 100.0100, L500.2500 ####[facility] [address] [place], [address] CREAT,SERUM Normal 0.70-1.30 [facility] Comment on above: Result Comment: Canc elled via OM: Order cancelled - Patient discharged Performed By: #### L 100.0100, L500.2500 ####[facility] [address] [place], [address] eGFR Normal >60 [facility] Comment on above: Result Comment: Canc elled via OM: Order cancelled - Patient discharged Performed By: #### L 100.0100, L500.2500 ####[facility] [address] [place], [address] EST GFR - AA Normal >60 [facility] Comment on above: Result Comment: Canc elled via OM: Order cancelled - Patient discharged Performed By: #### L 100.0100, L500.2500 ####[facility] [address] [place], [address] GAP Normal 5-15 [facility] Comment on above: Result Comment: Canc elled via OM: Order cancelled - Patient discharged Performed By: #### L 100.0100, L500.2500 ####[facility] [address] [place], [address] GLU Normal 74-106 [facility] Comment on above: Result Comment: Canc elled via OM: Order cancelled - Patient discharged Performed By: #### L 100.0100, L500.2500 ####[facility] [address] [place], [address] Potassium Normal 3.5-5.1 [facility] Comment on above: Result Comment: Canc elled via OM: Order cancelled - Patient discharged Performed By: #### L 100.0100, L500.2500 ####[facility] [address] [place], [address] Basic Metabolic Profile (BMP) Normal 136-145 [facility] Comment on above: Result Comment: Canc elled via OM: Order cancelled - Patient discharged Performed By: #### L 100.0100, L500.2500 ####[facility] [address] [place], [address] CBC W/Diff, Automatedon 03-0 Absolute Neut Normal 2.0-7.7 [facility] Comment on above: Result Comment: Canc elled via OM: Order cancelled - Patient discharged Performed By: #### L 100.0100, L500.2500 ####[facility] [address] [place], [address] HCT Normal 40-54 [facility] Comment on above: Result Comment: Canc elled via OM: Order cancelled - Patient discharged Performed By: #### L 100.0100, L500.2500 ####[facility] [address] [place], [address] HGB Normal 13.0-16.5 [facility] Comment on above: Result Comment: Canc elled via OM: Order cancelled - Patient discharged Performed By: #### L 100.0100, L500.2500 ####[facility] [address] [place], [address] MCH Normal 27.0-32.0 [facility] Comment on above: Result Comment: Canc elled via OM: Order cancelled - Patient discharged Performed By: #### L 100.0100, L500.2500 ####[facility] [address] [place], [address] MCHC Normal 32-36 [facility] Comment on above: Result Comment: Canc elled via OM: Order cancelled - Patient discharged Performed By: #### L 100.0100, L500.2500 ####[facility] [address] [place], [address] MCV Normal 80-94 [facility] Comment on above: Result Comment: Canc elled via OM: Order cancelled - Patient discharged Performed By: #### L 100.0100, L500.2500 ####[facility] [address] [place], [address] NEUT% Normal 47-70 [facility] Comment on above: Result Comment: Canc elled via OM: Order cancelled - Patient discharged Performed By: #### L 100.0100, L500.2500 ####[facility] [address] [place], [address] PLT Normal 150-450 [facility] Comment on above: Result Comment: Canc elled via OM: Order cancelled - Patient discharged Performed By: #### L 100.0100, L500.2500 ####[facility] [address] [place], [address] RBC Normal 4.6-6.2 [facility] Comment on above: Result Comment: Canc elled via OM: Order cancelled - Patient discharged Performed By: #### L 100.0100, L500.2500 ####[facility] [address] [place], [address] RDW CV Normal 11.6-14.6 [facility] Comment on above: Result Comment: Canc elled via OM: Order cancelled - Patient discharged Performed By: #### L 100.0100, L500.2500 ####[facility] [address] [place], [address] RDW SD Normal 35.1-43.9 [facility] Comment on above: Result Comment: Canc elled via OM: Order cancelled - Patient discharged Performed By: #### L 100.0100, L500.2500 ####[facility] [address] [place], [address] WBC Normal 4.4-11.0 [facility] Comment on above: Result Comment: Canc elled via OM: Order cancelled - Patient discharged Performed By: #### L 100.0100, L500.2500 ####[facility] [address] [place], [address] Culture, Anaerobic Any Sourc reed 07-21-2024 CUAN UNK UNK Post-lavage Right lower extremity No anaerobic bacteria isolated. Normal [facility] Comment on above: Performed By: #### M 100.2000, M100.3000, M100.4001 ####[facility] [address] [place], [address] CUAN UNK UNK Pre-lavage right lower extremity - collected in OR No anaerobic bacteria isolated. Normal [facility] Comment on above: Performed By: #### M 100.4001, M100.3000, M100.2000 ####[facility] [address] [place], [address] Culture, Blood (WB)on 2024 CUB No growth in 5 days. Normal [facility] Comment on above: Performed By: #### M 200.1000 ####[facility] [address] [place], [address] Absolute lymphocyte countOrd ered By: Jayla Osuna on 07-20-2024 Lymphocytes Auto (Unsp spec) [#/Vol] 1.89 10*3/uL 0.83-4.51 [facility] Automated lymphocyte count a s percentage of total leukocytesOrdered By: Jayla Osuna on 07-20-2024 Lymphocytes/100 WBC Auto (Unsp spec) 14.9 % Low 19-41 [facility] BUN/creatinine ratioOrdered By: Margarette Godinez on 07-20-2024 Urea nitrogen/Creatinine [Mass ratio] 16.1 mg/mg 10-20 [facility] Basic Metabolic Profile (BMP )on 07-20-2024 Anion gap [Moles/Vol] 12 mmol/L Normal 5-15 [facility] Comment on above: Performed By: #### L 500.2500 ####[facility] [address] [place], [address] BUN/CRE 16.1 RATIO Normal 10-20 [facility] Comment on above: Performed By: #### L 500.2500 ####[facility] [address] [place], [address] Calcium [Mass/Vol] 8.7 mg/dL Normal 7.6-11.0 [facility] Comment on above: Performed By: #### L 500.2500 ####[facility] [address] [place], [address] Chloride [Moles/Vol] 97 mmol/L Normal 96-108 [facility] Comment on above: Performed By: #### L 500.2500 ####[facility] [address] [place], [address] CO2 [Moles/Vol] 22.0 mmol/L Normal 22.0-29.0 [facility] Comment on above: Performed By: #### L 500.2500 ####[facility] [address] [place], [address] Creatinine [Mass/Vol] 4.24 mg/dL High 0.70-1.20 [facility] Comment on above: Performed By: #### L 500.2500 ####[facility] [address] [place], [address] ECRCL 13.28 ml/min Normal [facility] Comment on above: Performed By: #### L 500.2500 ####[facility] [address] [place], [address] GFR/1.73 sq M.predicted among non-blacks MDRD (S/P/Bld) [Vol rate/Area] 13 mL/min/{1.73_m2} Low >60 [facility] Comment on above: Result Comment: mL/m in/1.73m2 CKD-EPI Creatinine Equation (2020) Performed By: #### L 500.2500 ####[facility] [address] [place], [address] Glucose [Mass/Vol] 153 mg/dL High 70-99 [facility] Comment on above: Performed By: #### L 500.2500 ####[facility] [address] [place], [address] Potassium [Moles/Vol] 5.5 mmol/L High 3.3-5.1 [facility] Comment on above: Performed By: #### L 500.2500 ####[facility] [address] [place], [address] Sodium [Moles/Vol] 131 mmol/L Low 133-145 [facility] Comment on above: Performed By: #### L 500.2500 ####[facility] [address] [place], [address] Urea nitrogen [Mass/Vol] 68 mg/dL High 4-19 [facility] Comment on above: Performed By: #### L 500.2500 ####[facility] [address] [place], [address] BUN/CRE 16.1 RATIO Normal 10-20 [facility] Comment on above: Result Comment: WILL REORDER Performed By: #### L 500.2500, L100.0100 ####[facility] [address] [place], [address] Creatinine [Mass/Vol] 4.15 mg/dL High 0.70-1.20 [facility] Comment on above: Result Comment: WILL REORDER Performed By: #### L 500.2500, L100.0100 ####[facility] [address] [place], [address] ECRCL 13.57 ml/min Normal [facility] Comment on above: Result Comment: WILL REORDER Performed By: #### L 500.2500, L100.0100 ####[facility] [address] [place], [address] GFR/1.73 sq M.predicted among non-blacks MDRD (S/P/Bld) [Vol rate/Area] 13 mL/min/{1.73_m2} Low >60 [facility] Comment on above: Result Comment: WILL REORDERmL/min/1.73m2 CKD-EPI Creatinine Equation (2020) Performed By: #### L 500.2500, L100.0100 ####[facility] [address] [place], [address] Glucose [Mass/Vol] 155 mg/dL High 70-99 [facility] Comment on above: Result Comment: WILL REORDER Performed By: #### L 500.2500, L100.0100 ####[facility] [address] [place], [address] Urea nitrogen [Mass/Vol] 67 mg/dL High 4-19 [facility] Comment on above: Result Comment: WILL REORDER Performed By: #### L 500.2500, L100.0100 ####[facility] [address] [place], [address] Calcium Normal 8.5-10.1 [facility] Comment on above: Result Comment: WILL REORDER Performed By: #### L 500.2500, L100.0100 ####[facility] [address] [place], [address] CL Normal 98-107 [facility] Comment on above: Result Comment: WILL REORDER Performed By: #### L 500.2500, L100.0100 ####[facility] [address] [place], [address] CO2 Normal 21.0-32.0 [facility] Comment on above: Result Comment: WILL REORDER Performed By: #### L 500.2500, L100.0100 ####[facility] [address] [place], [address] EST GFR - AA Normal >60 [facility] Comment on above: Result Comment: WILL REORDER Performed By: #### L 500.2500, L100.0100 ####[facility] [address] [place], [address] GAP Normal 5-15 [facility] Comment on above: Result Comment: WILL REORDER Performed By: #### L 500.2500, L100.0100 ####[facility] [address] [place], [address] Potassium Normal 3.5-5.1 [facility] Comment on above: Result Comment: WILL REORDER Performed By: #### L 500.2500, L100.0100 ####[facility] [address] [place], [address] Basic Metabolic Profile (BMP) Normal 136-145 [facility] Comment on above: Result Comment: WILL REORDER Performed By: #### L 500.2500, L100.0100 ####[facility] [address] [place], [address] Basophil percentageOrdered B y: Jayla Osuna on 07-20-2024 Basophils/100 WBC (Bld) 0.4 % 0-1 [facility] Bedside Glucoseon 07-20-2024 FINGERSTICK GLU 91 mg/dL Normal 74-106 [facility] Comment on above: Result Comment: FANG GEMENT OF PATIENT CARE PER NURSING PROTOCOL Performed By: #### L 501.080 ####[facility] [address] [place], [address] FINGERSTICK GLU 98 mg/dL Normal 74-106 [facility] Comment on above: Result Comment: FANG GEMENT OF PATIENT CARE PER NURSING PROTOCOL Performed By: #### L 501.080 ####[facility] [address] [place], [address] FINGERSTICK GLU 159 mg/dL High 74-106 [facility] Comment on above: Result Comment: FANG GEMENT OF PATIENT CARE PER NURSING PROTOCOL Performed By: #### L 501.080 ####[facility] [address] [place], [address] FINGERSTICK GLU 156 mg/dL High 74-106 [facility] Comment on above: Result Comment: FANG GEMENT OF PATIENT CARE PER NURSING PROTOCOL Performed By: #### L 501.080 ####[facility] [address] [place], [address] CBC W/Diff, Automatedon 06-24 Absolute Lymph 1.89 X10 3/uL Normal 0.83-4.51 [facility] Comment on above: Performed By: #### L 500.2500, L100.0100 ####[facility] [address] [place], [address] Absolute Neut 9.3 X10 3/uL High 2.0-7.7 [facility] Comment on above: Performed By: #### L 500.2500, L100.0100 ####[facility] [address] [place], [address] Basophils/100 WBC (Bld) 0.4 % Normal 0-1 [facility] Comment on above: Performed By: #### L 500.2500, L100.0100 ####[facility] [address] [place], [address] Eosinophils/100 WBC (Bld) 1.7 % Normal 0-5 [facility] Comment on above: Performed By: #### L 500.2500, L100.0100 ####[facility] [address] [place], [address] Erythrocyte distribution width (RBC) [Ratio] 17.6 % High 11.6-14.6 [facility] Comment on above: Performed By: #### L 500.2500, L100.0100 ####[facility] [address] [place], [address] Hematocrit (Bld) [Volume fraction] 25.2 % Low 40-54 [facility] Comment on above: Performed By: #### L 500.2500, L100.0100 ####[facility] [address] [place], [address] Hemoglobin (Bld) [Mass/Vol] 7.6 g/dL Low 13.0-16.5 [facility] Comment on above: Performed By: #### L 500.2500, L100.0100 ####[facility] [address] [place], [address] IG% 2.300 High 0.0-0.9 [facility] Comment on above: Result Comment: IG% - Immature Granulocytes (promyelocytes, myelocytes andmetamyelocytes) > 1% indicates that a LEFT SHIFT is Present. Performed By: #### L 500.2500, L100.0100 ####[facility] [address] [place], [address] Lymphocytes/100 WBC (Bld) 14.9 % Low 19-41 [facility] Comment on above: Performed By: #### L 500.2500, L100.0100 ####[facility] [address] [place], [address] MCH (RBC) [Entitic mass] 28.1 pg Normal 27.0-32.0 [facility] Comment on above: Performed By: #### L 500.2500, L100.0100 ####[facility] [address] [place], [address] MCHC (RBC) [Mass/Vol] 30.2 g/dL Low 32-36 [facility] Comment on above: Performed By: #### L 500.2500, L100.0100 ####[facility] [address] [place], [address] MCV (RBC) [Entitic vol] 93.3 fL Normal 80-94 [facility] Comment on above: Performed By: #### L 500.2500, L100.0100 ####[facility] [address] [place], [address] Monocytes/100 WBC (Bld) 7.6 % Normal 0-10 [facility] Comment on above: Performed By: #### L 500.2500, L100.0100 ####[facility] [address] [place], [address] Neutrophils/100 WBC (Bld) 73.1 % High 47-70 [facility] Comment on above: Performed By: #### L 500.2500, L100.0100 ####[facility] [address] [place], [address] Nucleated RBC (Bld) [#/Vol] 0 10*3/uL Normal 0-5 [facility] Comment on above: Performed By: #### L 500.2500, L100.0100 ####[facility] [address] [place], [address] Platelet mean volume (Bld) [Entitic vol] 10.4 fL Normal 6.2-12.0 [facility] Comment on above: Performed By: #### L 500.2500, L100.0100 ####[facility] [address] [place], [address] Platelets (Bld) [#/Vol] 438 10*3/uL Normal 150-450 [facility] [facility] Comment on above: Performed By: #### L 500.2500, L100.0100 ####[facility] [address] [place], [address] RBC (Bld) [#/Vol] 2.70 10*6/uL Low 4.6-6.2 [facility] Comment on above: Performed By: #### L 500.2500, L100.0100 ####[facility] [address] [place], [address] RDW SD 60.7 fl High 35.1-43.9 [facility] Comment on above: Performed By: #### L 500.2500, L100.0100 ####[facility] [address] [place], [address] WBC (Bld) [#/Vol] 12.7 10*3/uL High 4.4-11.0 [facility] Comment on above: Performed By: #### L 500.2500, L100.0100 ####[facility] [address] [place], [address] Carbon dioxide measurementOr dered By: Margarette Godinez on 07-20-2024 CO2 [Moles/Vol] 22.0 mmol/L 22.0-29.0 [facility] Chloride measurementOrdered By: Margarette Godinez on 07-20-2024 Chloride [Moles/Vol] 97 mmol/L 96-108 [facility] Eosinophil percentageOrdered By: Jayla Osuna on 07-20-2024 Eosinophils/100 WBC (Bld) 1.7 % 0-5 [facility] Erythrocyte distribution wid th ratioOrdered By: Jayla Osuna on 07-20-2024 Erythrocyte distribution width (RBC) [Ratio] 17.6 % High 11.6-14.6 [facility] Erythrocyte distribution wid th standard deviationOrdered By: Jayla Osuna on 07-20-2024 Erythrocyte distribution width (RBC) [Ratio] 60.7 fl High 35.1-43.9 [facility] Glomerular filtration rate ( GFR) estimation/1.73 sq m using serum, plasma, or whole bOrdered By: Margarette Godinez on 07-20-2024 GFR/1.73 sq M.predicted among non-blacks MDRD (S/P/Bld) [Vol rate/Area] 13 mL/min/{1.73_m2} Low >60 [facility] deOrdered By: Margarette Godinez on 07-20-2024 Glucose [Mass/Vol] 91 mg/dL 74-106 [facility] Hematocrit Auto (Bld) [Volum e fraction]Ordered By: Jayla Osuna on 07-20-2024 Hematocrit (Bld) [Volume fraction] 25.2 % Low 40-54 [facility] Hemoglobin measurementOrdere d By: Jayla Osuna on 07-20-2024 Hemoglobin (Bld) [Mass/Vol] 7.6 g/dL Low 13.0-16.5 [facility] Immature granulocytes/100 WB C Auto (Bld)Ordered By: Jayla Osuna on 07-20-2024 Immature granulocytes/100 WBC (Bld) 2.300 % High 0.0-0.9 [facility] MCV (mean corpuscular volume ) determinationOrdered By: aJyla Osuna on 07-20-2024 MCV (RBC) [Entitic vol] 93.3 fL 80-94 [facility] Mean corpuscular hemoglobin (MCH) determinationOrdered By: Jayla Osuna on 07-20-2024 MCH (RBC) [Entitic mass] 28.1 pg 27.0-32.0 [facility] Monocyte percentageOrdered B y: Jayla Osuna on 07-20-2024 Monocytes/100 WBC (Bld) 7.6 % 0-10 [facility] Neutrophil percentageOrdered By: Jayla Osuna on 07-20-2024 Neutrophils/100 WBC (Bld) 73.1 % High 47-70 [facility] Platelet countOrdered By: Kristofer Osuna on 07-20-2024 Platelets (Bld) [#/Vol] 438 10*3/uL 150-450 [facility] RBC Auto (Bld) [#/Vol]Ordere d By: Jayla Osuna on 07-20-2024 RBC (Bld) [#/Vol] 2.70 10*6/uL Low 4.6-6.2 [facility] Serum creatinine measurement (mass/volume)Ordered By: Margarette Godinez on 07-20-2024 Creatinine [Mass/Vol] 4.24 mg/dL High 0.70-1.20 [facility] Serum glucose measurement (m ass/volume)Ordered By: Margarette Godinez on 07-20-2024 Glucose [Mass/Vol] 153 mg/dL High 70-99 [facility] Serum or plasma anion gap de termination (moles/volume)Ordered By: Margarette Godinez on 07-20-2024 Anion gap [Moles/Vol] 12 mmol/L - [facility] Serum or plasma calcium lilli urement (mass/volume)Ordered By: Margarette Godinez on 07-20-2024 Calcium [Mass/Vol] 8.7 mg/dL 7.6-11.0 [facility] Serum or plasma potassium me asurementOrdered By: Margarette Godinez on 07-20-2024 Potassium [Moles/Vol] 5.5 mmol/L High 3.3-5.1 [facility] Serum or plasma sodium measu rement (moles/volume)Ordered By: Margarette Godinez on 07-20-2024 Sodium [Moles/Vol] 131 mmol/L Low 133-145 [facility] Serum or plasma urea nitroge n measurement (mass/volume)Ordered By: Margarette Godinez on 07-20-2024 Urea nitrogen [Mass/Vol] 68 mg/dL High 4-19 [facility] White blood cell (WBC) count Ordered By: Jayla Osuna on 07-20-2024 WBC (Bld) [#/Vol] 12.7 10*3/uL High 4.4-11.0 [facility] Basic Metabolic Profile (BMP )on 07-19-2024 Anion gap [Moles/Vol] 17 mmol/L High 10-04 [facility] Comment on above: Performed By: #### L 500.2500 ####[facility] [address] [place], [address] BUN/CRE 14.3 RATIO Normal 10-20 [facility] Comment on above: Performed By: #### L 500.2500 ####[facility] [address] [place], [address] Calcium [Mass/Vol] 8.7 mg/dL Normal 7.6-11.0 [facility] Comment on above: Performed By: #### L 500.2500 ####[facility] [address] [place], [address] Chloride [Moles/Vol] 95 mmol/L Low 96-108 [facility] Comment on above: Performed By: #### L 500.2500 ####[facility] [address] [place], [address] CO2 [Moles/Vol] 19.8 mmol/L Low 22.0-29.0 [facility] Comment on above: Performed By: #### L 500.2500 ####[facility] [address] [place], [address] Creatinine [Mass/Vol] 5.60 mg/dL High 0.70-1.20 [facility] Comment on above: Performed By: #### L 500.2500 ####[facility] [address] [place], [address] ECRCL 10.06 ml/min Normal [facility] Comment on above: Performed By: #### L 500.2500 ####[facility] [address] [place], [address] GFR/1.73 sq M.predicted among non-blacks MDRD (S/P/Bld) [Vol rate/Area] 9 mL/min/{1.73_m2} Low >60 [facility] Comment on above: Result Comment: mL/m in/1.73m2 CKD-EPI Creatinine Equation (2020) Performed By: #### L 500.2500 ####[facility] [address] [place], [address] Glucose [Mass/Vol] 153 mg/dL High 70-99 [facility] Comment on above: Performed By: #### L 500.2500 ####[facility] [address] [place], [address] Potassium [Moles/Vol] 5.9 mmol/L High 3.3-5.1 [facility] Comment on above: Performed By: #### L 500.2500 ####[facility] [address] [place], [address] Sodium [Moles/Vol] 131 mmol/L Low 133-145 [facility] Comment on above: Performed By: #### L 500.2500 ####[facility] [address] [place], [address] Urea nitrogen [Mass/Vol] 80 mg/dL High 4-19 [facility] Comment on above: Performed By: #### L 500.2500 ####[facility] [address] [place], [address] Anion gap [Moles/Vol] 13 mmol/L Normal 5-15 [facility] Comment on above: Performed By: #### L 500.2500 ####[facility] [address] [place], [address] ECRCL 12.41 ml/min Normal [facility] Comment on above: Performed By: #### L 500.2500 ####[facility] [address] [place], [address] GFR/1.73 sq M.predicted among non-blacks MDRD (S/P/Bld) [Vol rate/Area] 12 mL/min/{1.73_m2} Low >60 [facility] Comment on above: Performed By: #### L 500.2500 ####[facility] [address] [place], [address] BUN/CRE 13.7 RATIO Normal 10-20 [facility] Comment on above: Performed By: #### L 500.2500 ####[facility] [address] [place], [address] Calcium [Mass/Vol] 8.9 mg/dL Normal 7.6-11.0 [facility] Comment on above: Performed By: #### L 500.2500 ####[facility] [address] [place], [address] Creatinine [Mass/Vol] 4.6 mg/dL High 0.8-1.3 [facility] Comment on above: Performed By: #### L 500.2500 ####[facility] [address] [place], [address] Glucose [Mass/Vol] 130 mg/dL High 70-99 [facility] Comment on above: Performed By: #### L 500.2500 ####[facility] [address] [place], [address] Urea nitrogen [Mass/Vol] 63 mg/dL High 4-19 [facility] Comment on above: Performed By: #### L 500.2500 ####[facility] [address] [place], [address] Chloride [Moles/Vol] 97 mmol/L Normal 96-108 [facility] Comment on above: Performed By: #### L 500.2500 ####[facility] [address] [place], [address] CO2 [Moles/Vol] 22.7 mmol/L Normal 22.0-29.0 [facility] Comment on above: Performed By: #### L 500.2500 ####[facility] [address] [place], [address] Potassium [Moles/Vol] 5.0 mmol/L Normal 3.3-5.1 [facility] Comment on above: Performed By: #### L 500.2500 ####[facility] [address] [place], [address] Sodium [Moles/Vol] 133 mmol/L Normal 133-145 [facility] Comment on above: Performed By: #### L 500.2500 ####[facility] [address] [place], [address] Glucose [Mass/Vol] 165 mg/dL High 70-99 [facility] Comment on above: Order Comment: REORD ERED Result Comment: MARIS RAYA AMENDED REPORT 07/19/24 1223 GLU previously reported as: 173 H mg/dL Performed By: #### L 100.0100, L500.2500 ####[facility] [address] [place], [address] Urea nitrogen [Mass/Vol] 84 mg/dL High 4-19 [facility] Comment on above: Order Comment: REORD ERED Result Comment: MARIS RAYA AMENDED REPORT 07/19/24 1223 BUN previously reported as: 83 H mg/dL Performed By: #### L 100.0100, L500.2500 ####[facility] [address] [place], [address] BUN/CRE 13.7 RATIO Normal 10-20 [facility] Comment on above: Order Comment: WILL REORDER Result Comment: WILL REORDER AMENDED REPORT 07/19/24 1106 BUN/CRE previously reported as: 13.5 RATIO Performed By: #### L 100.0100, L500.2500 ####[facility] [address] [place], [address] Creatinine [Mass/Vol] 4.6 mg/dL High 0.8-1.3 [facility] Comment on above: Order Comment: WILL REORDER Result Comment: WILL REORDER AMENDED REPORT 07/19/24 1106 CREAT,SERUM previously reported as: 4.5 H mg/dL Performed By: #### L 100.0100, L500.2500 ####[facility] [address] [place], [address] ECRCL 12.41 ml/min Normal [facility] Comment on above: Order Comment: WILL REORDER Result Comment: WILL REORDER AMENDED REPORT 07/19/24 1106 Estimated CRCL previously reported as: 12.65 ml/min Performed By: #### L 100.0100, L500.2500 ####[facility] [address] [place], [address] Glucose [Mass/Vol] 130 mg/dL High 70-99 [facility] Comment on above: Order Comment: WILL REORDER Result Comment: WILL REORDER AMENDED REPORT 07/19/24 1106 GLU previously reported as: 157 H mg/dL Performed By: #### L 100.0100, L500.2500 ####[facility] [address] [place], [address] Urea nitrogen [Mass/Vol] 63 mg/dL High 4-19 [facility] Comment on above: Order Comment: WILL REORDER Result Comment: WILL REORDER AMENDED REPORT 07/19/24 1106 BUN previously reported as: 60 H mg/dL Performed By: #### L 100.0100, L500.2500 ####[facility] [address] [place], [address] BUN/CRE 15.2 RATIO Normal 10-20 [facility] Comment on above: Order Comment: REORD ERED Result Comment: MARIS RAYA Performed By: #### L 100.0100, L500.2500 ####[facility] [address] [place], [address] Creatinine [Mass/Vol] 5.5 mg/dL High 0.8-1.3 [facility] Comment on above: Order Comment: REORD ERED Result Comment: MARIS RAYA Performed By: #### L 100.0100, L500.2500 ####[facility] [address] [place], [address] ECRCL 10.38 ml/min Normal [facility] Comment on above: Order Comment: REORD ERED Result Comment: MARIS RAYA Performed By: #### L 100.0100, L500.2500 ####[facility] [address] [place], [address] GFR/1.73 sq M.predicted among non-blacks MDRD (S/P/Bld) [Vol rate/Area] 9 mL/min/{1.73_m2} Low >60 [facility] Comment on above: Order Comment: REALVERTO ERED Result Comment: MARIS ZHAODmL/min/1.73m2 CKD-EPI Creatinine Equation (2020) Performed By: #### L 100.0100, L500.2500 ####[facility] [address] [place], [address] Calcium Normal 8.5-10.1 [facility] Comment on above: Order Comment: REORD ERED Result Comment: REOR DERED Performed By: #### L 100.0100, L500.2500 ####[facility] [address] [place], [address] CL Normal 98-107 [facility] Comment on above: Order Comment: REORD ERED Result Comment: REOR DERED Performed By: #### L 100.0100, L500.2500 ####[facility] [address] [place], [address] CO2 Normal 21.0-32.0 [facility] Comment on above: Order Comment: REORD ERED Result Comment: REOR DERED Performed By: #### L 100.0100, L500.2500 ####[facility] [address] [place], [address] EST GFR - AA Normal >60 [facility] Comment on above: Order Comment: REORD ERED Result Comment: REOR DERED Performed By: #### L 100.0100, L500.2500 ####[facility] [address] [place], [address] GAP Normal 5-15 [facility] Comment on above: Order Comment: REORD ERED Result Comment: REOR DERED Performed By: #### L 100.0100, L500.2500 ####[facility] [address] [place], [address] Potassium Normal 3.5-5.1 [facility] Comment on above: Order Comment: THERESA LIMA Result Comment: MARIS RAYA Performed By: #### L 100.0100, L500.2500 ####[facility] [address] [place], [address] Basic Metabolic Profile (BMP) Normal 136-145 [facility] Comment on above: Order Comment: THERESA LIMA Result Comment: MARIS RAYA Performed By: #### L 100.0100, L500.2500 ####[facility] [address] [place], [address] Bedside Glucoseon 07-19-2024 FINGERSTICK GLU 135 mg/dL High 74-106 [facility] Comment on above: Result Comment: FANG GEMENT OF PATIENT CARE PER NURSING PROTOCOL Performed By: #### L 501.080 ####[facility] [address] [place], [address] FINGERSTICK GLU 227 mg/dL High 74-106 [facility] Comment on above: Result Comment: FANG GEMENT OF PATIENT CARE PER NURSING PROTOCOL Performed By: #### L 501.080 ####[facility] [address] [place], [address] FINGERSTICK GLU 120 mg/dL High 74-106 [facility] Comment on above: Result Comment: FANG GEMENT OF PATIENT CARE PER NURSING PROTOCOL Performed By: #### L 501.080 ####[facility] [address] [place], [address] CBC W/Diff, Automatedon - Absolute Lymph 2.07 X10 3/uL Normal 0.83-4.51 [facility] Comment on above: Performed By: #### L 100.0100, L500.2500 ####[facility] [address] [place], [address] Absolute Neut 13.1 X10 3/uL High 2.0-7.7 [facility] Comment on above: Performed By: #### L 100.0100, L500.2500 ####[facility] [address] [place], [address] Basophils/100 WBC (Bld) 0.5 % Normal 0-1 [facility] Comment on above: Performed By: #### L 100.0100, L500.2500 ####[facility] [address] [place], [address] Eosinophils/100 WBC (Bld) 1.6 % Normal 0-5 [facility] Comment on above: Performed By: #### L 100.0100, L500.2500 ####[facility] [address] [place], [address] Erythrocyte distribution width (RBC) [Ratio] 17.7 % High 11.6-14.6 [facility] Comment on above: Performed By: #### L 100.0100, L500.2500 ####[facility] [address] [place], [address] Hematocrit (Bld) [Volume fraction] 25.5 % Low 40-54 [facility] Comment on above: Performed By: #### L 100.0100, L500.2500 ####[facility] [address] [place], [address] Hemoglobin (Bld) [Mass/Vol] 7.7 g/dL Low 13.0-16.5 [facility] Comment on above: Performed By: #### L 100.0100, L500.2500 ####[facility] [address] [place], [address] IG% 2.300 High 0.0-0.9 [facility] Comment on above: Result Comment: IG% - Immature Granulocytes (promyelocytes, myelocytes andmetamyelocytes) > 1% indicates that a LEFT SHIFT is Present. Performed By: #### L 100.0100, L500.2500 ####[facility] [address] [place], [address] Lymphocytes/100 WBC (Bld) 12.1 % Low 19-41 [facility] Comment on above: Performed By: #### L 100.0100, L500.2500 ####[facility] [address] [place], [address] MCH (RBC) [Entitic mass] 28.1 pg Normal 27.0-32.0 [facility] Comment on above: Performed By: #### L 100.0100, L500.2500 ####[facility] [address] [place], [address] MCHC (RBC) [Mass/Vol] 30.2 g/dL Low 32-36 [facility] Comment on above: Performed By: #### L 100.0100, L500.2500 ####[facility] [address] [place], [address] MCV (RBC) [Entitic vol] 93.1 fL Normal 80-94 [facility] Comment on above: Performed By: #### L 100.0100, L500.2500 ####[facility] [address] [place], [address] Monocytes/100 WBC (Bld) 7.1 % Normal 0-10 [facility] Comment on above: Performed By: #### L 100.0100, L500.2500 ####[facility] [address] [place], [address] Neutrophils/100 WBC (Bld) 76.4 % High 47-70 [facility] Comment on above: Performed By: #### L 100.0100, L500.2500 ####[facility] [address] [place], [address] Nucleated RBC (Bld) [#/Vol] 0 10*3/uL Normal 0-5 [facility] Comment on above: Performed By: #### L 100.0100, L500.2500 ####[facility] [address] [place], [address] Platelet mean volume (Bld) [Entitic vol] 10.6 fL Normal 6.2-12.0 [facility] Comment on above: Performed By: #### L 100.0100, L500.2500 ####[facility] [address] [place], [address] Platelets (Bld) [#/Vol] 467 10*3/uL High 150-450 [facility] Comment on above: Performed By: #### L 100.0100, L500.2500 ####[facility] [address] [place], [address] RBC (Bld) [#/Vol] 2.74 10*6/uL Low 4.6-6.2 [facility] Comment on above: Performed By: #### L 100.0100, L500.2500 ####[facility] [address] [place], [address] RDW SD 59.6 fl High 35.1-43.9 [facility] Comment on above: Performed By: #### L 100.0100, L500.2500 ####[facility] [address] [place], [address] WBC (Bld) [#/Vol] 17.2 10*3/uL High 4.4-11.0 [facility] Comment on above: Performed By: #### L 100.0100, L500.2500 ####[facility] [address] [place], [address] Serum or plasma vancomycin m easurement (mass/volume)Ordered By: Jayla Osuna on 07-19-2024 Vancomycin [Mass/Vol] 16.7 ug/mL High 0.0-15.0 [facility] Vancomycin, Random Levelon 0 07-19-2024 VANCO, RANDOM 16.7 ug/mL High 0.0-15.0 [facility] Comment on above: Result Comment: VANC OMYCIN STANDARD DRUG THERAPY: CRITICAL VALUE IS > 15.0 mg/LVANCOMYCIN HIGH INTENSITY THERAPY: CRITICAL VALUE IS > 20.0 mg/LPLEASE CONTACT PHARMACY SERVICES (#8089) FOR INTERPRETATIONOF RESULTS. THIS RESULT DOES NOT REPRESENT A PEAK OR TROUGHLEVEL FOR THIS DRUG. Performed By: #### L 501.8850 ####[facility] [address] [place], [address] Basic Metabolic Profile (BMP )on 07-18-2024 GFR/1.73 sq M.predicted among non-blacks MDRD (S/P/Bld) [Vol rate/Area] 12 mL/min/{1.73_m2} Low >60 [facility] Comment on above: Order Comment: WILL REORDER Result Comment: WILL REORDERmL/min/1.73m2 CKD-EPI Creatinine Equation (2020) Performed By: #### L 100.0100, L500.2500 ####[facility] [address] [place], [address] Calcium Normal 8.5-10.1 [facility] Comment on above: Order Comment: WILL REORDER Result Comment: WILL REORDER Performed By: #### L 100.0100, L500.2500 ####[facility] [address] [place], [address] CL Normal 98-107 [facility] Comment on above: Order Comment: WILL REORDER Result Comment: WILL REORDER Performed By: #### L 100.0100, L500.2500 ####[facility] [address] [place], [address] CO2 Normal 21.0-32.0 [facility] Comment on above: Order Comment: WILL REORDER Result Comment: WILL REORDER Performed By: #### L 100.0100, L500.2500 ####[facility] [address] [place], [address] EST GFR - AA Normal >60 [facility] Comment on above: Order Comment: WILL REORDER Result Comment: WILL REORDER Performed By: #### L 100.0100, L500.2500 ####[facility] [address] [place], [address] GAP Normal 5-15 [facility] Comment on above: Order Comment: WILL REORDER Result Comment: WILL REORDER Performed By: #### L 100.0100, L500.2500 ####[facility] [address] [place], [address] Potassium Normal 3.5-5.1 [facility] Comment on above: Order Comment: WILL REORDER Result Comment: WILL REORDER Performed By: #### L 100.0100, L500.2500 ####[facility] [address] [place], [address] Basic Metabolic Profile (BMP) Normal 136-145 [facility] Comment on above: Order Comment: WILL REORDER Result Comment: WILL REORDER Performed By: #### L 100.0100, L500.2500 ####[facility] [address] [place], [address] Bedside Glucoseon 07-18-2024 FINGERSTICK GLU 110 mg/dL High 74-106 [facility] Comment on above: Result Comment: FANG GEMENT OF PATIENT CARE PER NURSING PROTOCOL Performed By: #### L 501.080 ####[facility] [address] [place], [address] FINGERSTICK GLU 156 mg/dL High 74-106 [facility] Comment on above: Result Comment: FANG GEMENT OF PATIENT CARE PER NURSING PROTOCOL Performed By: #### L 501.080 ####[facility] [address] [place], [address] FINGERSTICK GLU 139 mg/dL High 74-106 [facility] Comment on above: Result Comment: FANG GEMENT OF PATIENT CARE PER NURSING PROTOCOL Performed By: #### L 501.080 ####[facility] [address] [place], [address] FINGERSTICK GLU 155 mg/dL High 74-106 [facility] Comment on above: Result Comment: FANG GEMENT OF PATIENT CARE PER NURSING PROTOCOL Performed By: #### L 501.080 ####[facility] [address] [place], [address] FINGERSTICK GLU 229 mg/dL High 74-106 [facility] Comment on above: Result Comment: FANG GEMENT OF PATIENT CARE PER NURSING PROTOCOL Performed By: #### L 501.080 ####[facility] [address] [place], [address] Body Tissue Cultureon 2024 [facility] Normal [facility] Comment on above: Performed By: #### M 100.2910, M100.4001, M100.2000 ####[facility] [address] [place], [address] CBC W/Diff, Automatedon 06-24 PATH [address] Normal [facility] Comment on above: Result Comment: Neut rophilic leukocytosis with left shift.Normocytic anemia.Clinical correlation necessary.Jose Souza M.D. 07/18/24 AMENDED REPORT 07/18/24 4235 PATH REV previously reported as: September nitesh Performed By: #### L 100.0100, L500.2500 ####[facility] [address] [place], [address] Culture, Anaerobic Any Sourc reed 07-18-[address] [facility] Comment on above: Performed By: #### M 100.4001, M100.2000, M100.3000 ####[facility] [address] [place], [address] Review by pathologistOrdered By: Jayla Osuna on 07-18-2024 Pathologist review Jeff (Unsp spec) [Interp] Reviewed [facility] Wound Cultureon 07-18-[address] [facility] Comment on above: Performed By: #### M 100.4001, M100.3000, M100.2000 ####[facility] [address] [place], [address] [facility] Comment on above: Performed By: #### M 100.2000, M100.3000, M100.4001 ####[facility] [address] [place], [address] Ankle Brachial Indexon 07-17 Ankle Brachial Index Normal [facility] Basic Metabolic Profile (BMP )on 07-17-2024 BUN/CRE 13.3 RATIO Normal 10-20 [facility] Comment on above: Performed By: #### L 500.2500, L100.0100 ####[facility] [address] [place], [address] CA,Total 8.3 mg/dL Low 8.5-10.1 [facility] Comment on above: Performed By: #### L 500.2500, L100.0100 ####[facility] [address] [place], [address] Chloride [Moles/Vol] 97 mmol/L Low 98-107 [facility] Comment on above: Performed By: #### L 500.2500, L100.0100 ####[facility] [address] [place], [address] CO2 [Moles/Vol] 25.0 mmol/L Normal 21.0-32.0 [facility] Comment on above: Performed By: #### L 500.2500, L100.0100 ####[facility] [address] [place], [address] Creatinine [Mass/Vol] 6.15 mg/dL High 0.70-1.30 [facility] Comment on above: Result Comment: The validity of the calculated GFR GFRAA in patients over70 years has not been determined. Clinical correlation isessential. Performed By: #### L 500.2500, L100.0100 ####[facility] [address] [place], [address] ECRCL 9.33 ml/min Normal [facility] Comment on above: Performed By: #### L 500.2500, L100.0100 ####[facility] [address] [place], [address] EST GFR - AA 11 mL/min Low >60 [facility] Comment on above: Result Comment: Afri can [place] GFR Calc Performed By: #### L 500.2500, L100.0100 ####[facility] [address] [place], [address] GAP 8 Normal 5-15 [facility] Comment on above: Performed By: #### L 500.2500, L100.0100 ####[facility] [address] [place], [address] GFR/1.73 sq M.predicted among non-blacks MDRD (S/P/Bld) [Vol rate/Area] 9 mL/min/{1.73_m2} Low >60 [facility] Comment on above: Result Comment: Non- GFR Calc Performed By: #### L 500.2500, L100.0100 ####[facility] [address] [place], [address] Glucose [Mass/Vol] 213 mg/dL High 74-106 [facility] Comment on above: Result Comment: Gluc ose result greater than or equal to 200 mg/dLsuggests DIABETES MELLITUS per A.D.A. criteria. Performed By: #### L 500.2500, L100.0100 ####[facility] [address] [place], [address] Potassium [Moles/Vol] 5.1 mmol/L Normal 3.5-5.1 [facility] Comment on above: Performed By: #### L 500.2500, L100.0100 ####[facility] [address] [place], [address] Sodium [Moles/Vol] 130 mmol/L Low 136-145 [facility] Comment on above: Performed By: #### L 500.2500, L100.0100 ####[facility] [address] [place], [address] Urea nitrogen [Mass/Vol] 82 mg/dL High 7-18 [facility] Comment on above: Performed By: #### L 500.2500, L100.0100 ####[facility] [address] [place], [address] Bedside Glucoseon 07-17-2024 FINGERSTICK GLU 119 mg/dL High 74-106 [facility] Comment on above: Result Comment: FANG GEMENT OF PATIENT CARE PER NURSING PROTOCOL Performed By: #### L 501.080 ####[facility] [address] [place], [address] FINGERSTICK GLU 226 mg/dL High 74-106 [facility] Comment on above: Result Comment: FANG GEMENT OF PATIENT CARE PER NURSING PROTOCOL Performed By: #### L 501.080 ####[facility] [address] [place], [address] FINGERSTICK GLU 203 mg/dL High 74-106 [facility] Comment on above: Result Comment: FANG GEMENT OF PATIENT CARE PER NURSING PROTOCOL Performed By: #### L 501.080 ####[facility] [address] [place], [address] FINGERSTICK GLU 208 mg/dL High 74-106 [facility] Comment on above: Result Comment: FANG GEMENT OF PATIENT CARE PER NURSING PROTOCOL Performed By: #### L 501.080 ####[facility] [address] [place], [address] Blood cultureOrdered By: Rosales Shore on 07-17-2024 Bacteria identified Cx Nom (Bld) No growth in [address] [facility] CBC W/Diff, Automatedon 06-24 Absolute Lymph 2.11 X10 3/uL Normal 0.83-4.51 [facility] Comment on above: Performed By: #### L 500.2500, L100.0100 ####[facility] [address] [place], [address] Absolute Neut 17.0 X10 3/uL High 2.0-7.7 [facility] Comment on above: Performed By: #### L 500.2500, L100.0100 ####[facility] [address] [place], [address] Basophils/100 WBC (Bld) 0.3 % Normal 0-1 [facility] Comment on above: Performed By: #### L 500.2500, L100.0100 ####[facility] [address] [place], [address] Eosinophils/100 WBC (Bld) 0.6 % Normal 0-5 [facility] Comment on above: Performed By: #### L 500.2500, L100.0100 ####[facility] [address] [place], [address] Erythrocyte distribution width (RBC) [Ratio] 17.7 % High 11.6-14.6 [facility] Comment on above: Performed By: #### L 500.2500, L100.0100 ####[facility] [address] [place], [address] Hematocrit (Bld) [Volume fraction] 23.7 % Low 40-54 [facility] Comment on above: Performed By: #### L 500.2500, L100.0100 ####[facility] [address] [place], [address] Hemoglobin (Bld) [Mass/Vol] 7.1 g/dL Low 13.0-16.5 [facility] Comment on above: Performed By: #### L 500.2500, L100.0100 ####[facility] [address] [place], [address] IG% 2.800 High 0.0-0.9 [facility] Comment on above: Result Comment: IG% - Immature Granulocytes (promyelocytes, myelocytes andmetamyelocytes) > 1% indicates that a LEFT SHIFT is Present. Performed By: #### L 500.2500, L100.0100 ####[facility] [address] [place], [address] Lymphocytes/100 WBC (Bld) 9.9 % Low 19-41 [facility] Comment on above: Performed By: #### L 500.2500, L100.0100 ####[facility] [address] [place], [address] MCH (RBC) [Entitic mass] 27.8 pg Normal 27.0-32.0 [facility] Comment on above: Performed By: #### L 500.2500, L100.0100 ####[facility] [address] [place], [address] MCHC (RBC) [Mass/Vol] 30.0 g/dL Low 32-36 [facility] Comment on above: Performed By: #### L 500.2500, L100.0100 ####[facility] [address] [place], [address] MCV (RBC) [Entitic vol] 92.9 fL Normal 80-94 [facility] Comment on above: Performed By: #### L 500.2500, L100.0100 ####[facility] [address] [place], [address] Monocytes/100 WBC (Bld) 6.6 % Normal 0-10 [facility] Comment on above: Performed By: #### L 500.2500, L100.0100 ####[facility] [address] [place], [address] Neutrophils/100 WBC (Bld) 79.8 % High 47-70 [facility] Comment on above: Performed By: #### L 500.2500, L100.0100 ####[facility] [address] [place], [address] Nucleated RBC (Bld) [#/Vol] 0 10*3/uL Normal 0-5 [facility] Comment on above: Performed By: #### L 500.2500, L100.0100 ####[facility] [address] [place], [address] Platelet mean volume (Bld) [Entitic vol] 10.7 fL Normal 6.2-12.0 [facility] Comment on above: Performed By: #### L 500.2500, L100.0100 ####[facility] [address] [place], [address] Platelets (Bld) [#/Vol] 378 10*3/uL Normal 150-450 [facility] Comment on above: Performed By: #### L 500.2500, L100.0100 ####[facility] [address] [place], [address] RBC (Bld) [#/Vol] 2.55 10*6/uL Low 4.6-6.2 [facility] Comment on above: Performed By: #### L 500.2500, L100.0100 ####[facility] [address] [place], [address] RDW SD 60.7 fl High 35.1-43.9 [facility] Comment on above: Performed By: #### L 500.2500, L100.0100 ####[facility] [address] [place], [address] WBC (Bld) [#/Vol] 21.2 10*3/uL High 4.4-11.0 [facility] Comment on above: Performed By: #### L 500.2500, L100.0100 ####[facility] [address] [place], [address] Chloride measurementOrdered By: Jayla Osuna on 07-17-2024 Chloride [Moles/Vol] 97 mmol/L Low 98-107 [facility] Gram Stainon 07-17-2024 GS UNK UNK Pre-lavage right lower extremity - collected in [place] Gram Stain Rare White Blood Cells 3+ Red Blood Cells Rare Gram positive cocci Normal [facility] Comment on above: Performed By: #### M 100.4001, M100.3000, M1.1999 ####[facility] [address] [place], [address] GS UNK UNK Post-lavage Right lower extremity Gram Stain 3+ Gram positive cocci Rare White Blood Cells Normal [facility] Comment on above: Performed By: #### M 100.2000, M100.3000, M100.4001 ####[facility] [address] [place], [address] GS Reason for Exam: Infection of right lower extremity Bone cortex right lower extremity Gram Stain 4+ Gram positive cocci Rare Gram negative rods No White Blood Cells Normal [facility] Comment on above: Performed By: #### M 100.2910, M100.4001, M1.1999 ####[facility] [address] [place], [address] US Art Duplex Bilat Lower Ex ton 07-17-2024 US Art Duplex Bilat Lower Ext Normal [facility] Vancomycin, Random Levelon 0 2-25-2025 VANCO, RANDOM 13.2 ug/mL Normal 0.0-15.0 [facility] Comment on above: Result Comment: VANC OMYCIN STANDARD DRUG THERAPY: CRITICAL VALUE IS > 15.0 mg/LVANCOMYCIN HIGH INTENSITY THERAPY: CRITICAL VALUE IS > 20.0 mg/LPLEASE CONTACT PHARMACY SERVICES (#5122) FOR INTERPRETATIONOF RESULTS. THIS RESULT DOES NOT REPRESENT A PEAK OR TROUGHLEVEL FOR THIS DRUG. Performed By: #### L 501.8850 ####[facility] [address] [place], [address] 12 Lead EKGon 07-16-[address] [facility] Activated partial thrombopla stin time (aPTT) in platelet poor plasma by coagulation aOrdered By: Flavio [place] on 07-16-2024 aPTT Coag (PPP) [Time] 39.7 s High 24.1-36.2 [facility] Anaerobic cultureOrdered By: Josef Garcia on 07-16-2024 Bacteria identified Anaer cx Nom (Unsp spec) Clostridium cadaveris Abnormal [facility] Bacteria identified Anaer cx Nom (Unsp spec) No anaerobic bacteria isolated. [facility] Bacterial tissue aerobic cul tureOrdered By: Josef Garcia on 07-16-2024 Bacteria identified Aer cx Nom (Tiss) Meth. resistant Staph. aureus Abnormal [facility] Basic Metabolic Profile (BMP )on 07-16-2024 BUN/CRE 13.8 RATIO Normal 10-20 [facility] Comment on above: Performed By: #### L 100.0100, L500.2500 ####[facility] [address] [place], [address] CA,Total 8.7 mg/dL Normal 8.5-10.1 [facility] Comment on above: Performed By: #### L 100.0100, L500.2500 ####[facility] [address] [place], [address] Chloride [Moles/Vol] 97 mmol/L Low 98-107 [facility] Comment on above: Performed By: #### L 100.0100, L500.2500 ####[facility] [address] [place], [address] CO2 [Moles/Vol] 26.0 mmol/L Normal 21.0-32.0 [facility] Comment on above: Performed By: #### L 100.0100, L500.2500 ####[facility] [address] [place], [address] Creatinine [Mass/Vol] 5.13 mg/dL High 0.70-1.30 [facility] Comment on above: Result Comment: The validity of the calculated GFR GFRAA in patients over70 years has not been determined. Clinical correlation isessential. Performed By: #### L 100.0100, L500.2500 ####[facility] [address] [place], [address] ECRCL 11.13 ml/min Normal [facility] Comment on above: Performed By: #### L 100.0100, L500.2500 ####[facility] [address] [place], [address] EST GFR - AA 14 mL/min Low >60 [facility] Comment on above: Result Comment: Afri can [place] GFR Calc Performed By: #### L 100.0100, L500.2500 ####[facility] [address] [place], [address] GAP 11 Normal 5-15 [facility] Comment on above: Performed By: #### L 100.0100, L500.2500 ####[facility] [address] [place], [address] GFR/1.73 sq M.predicted among non-blacks MDRD (S/P/Bld) [Vol rate/Area] 11 mL/min/{1.73_m2} Low >60 [facility] Comment on above: Result Comment: Non- GFR Calc Performed By: #### L 100.0100, L500.2500 ####[facility] [address] [place], [address] Glucose [Mass/Vol] 127 mg/dL High 74-106 [facility] Comment on above: Result Comment: Fast ing Glucose result greater than or equal to 126 mg/dLsuggests DIABETES MELLITUS per A.D.A. criteria. Performed By: #### L 100.0100, L500.2500 ####[facility] [address] [place], [address] Potassium [Moles/Vol] 4.3 mmol/L Normal 3.5-5.1 [facility] Comment on above: Performed By: #### L 100.0100, L500.2500 ####[facility] [address] [place], [address] Sodium [Moles/Vol] 134 mmol/L Low 136-145 [facility] Comment on above: Performed By: #### L 100.0100, L500.2500 ####[facility] [address] [place], [address] Urea nitrogen [Mass/Vol] 71 mg/dL High 7-18 [facility] Comment on above: Performed By: #### L 100.0100, L500.2500 ####[facility] [address] [place], [address] Bedside Glucoseon 07-16-2024 FINGERSTICK GLU 105 mg/dL Normal 74-106 [facility] Comment on above: Result Comment: FANG GEMENT OF PATIENT CARE PER NURSING PROTOCOL Performed By: #### L 501.080 ####[facility] [address] [place], [address] FINGERSTICK GLU 118 mg/dL High 74-106 [facility] Comment on above: Result Comment: FANG GEMENT OF PATIENT CARE PER NURSING PROTOCOL Performed By: #### L 501.080 ####[facility] [address] [place], [address] FINGERSTICK GLU 122 mg/dL High 74-106 [facility] Comment on above: Result Comment: FANG VAZQUEZ OF PATIENT CARE PER NURSING PROTOCOL Performed By: #### L 501.080 ####[facility] [address] [place], [address] Blood cultureOrdered By: Rosales Shore on 07-16-2024 Bacteria identified Cx Nom (Bld) No growth in [address] [facility] CBC W/Diff, Automatedon 06-[address] PATH [address] Normal [facility] Comment on above: Result Comment: Neut rophilic leukocytosis with left shift.Normocytic anemia.Clinical correlation necessary.Jose Souza M.D. 07/16/24 AMENDED REPORT 07/16/24 1406 PATH REV previously reported as: September Performed By: #### L 101.9900, L500.2500, L100.0100, L501.6710 ####[facility] [address] [place], [address] Absolute Lymph 2.43 X10 3/uL Normal 0.83-4.51 [facility] Comment on above: Performed By: #### L 100.0100, L500.2500 ####[facility] [address] [place], [address] Absolute Neut 12.8 X10 3/uL High 2.0-7.7 [facility] Comment on above: Performed By: #### L 100.0100, L500.2500 ####[facility] [address] [place], [address] Basophils/100 WBC (Bld) 0.2 % Normal 0-1 [facility] Comment on above: Performed By: #### L 100.0100, L500.2500 ####[facility] [address] [place], [address] Eosinophils/100 WBC (Bld) 1.6 % Normal 0-5 [facility] Comment on above: Performed By: #### L 100.0100, L500.2500 ####[facility] [address] [place], [address] Erythrocyte distribution width (RBC) [Ratio] 17.7 % High 11.6-14.6 [facility] Comment on above: Performed By: #### L 100.0100, L500.2500 ####[facility] [address] [place], [address] Hematocrit (Bld) [Volume fraction] 25.2 % Low 40-54 [facility] Comment on above: Performed By: #### L 100.0100, L500.2500 ####[facility] [address] [place], [address] Hemoglobin (Bld) [Mass/Vol] 7.5 g/dL Low 13.0-16.5 [facility] Comment on above: Performed By: #### L 100.0100, L500.2500 ####[facility] [address] [place], [address] IG% 3.200 High 0.0-0.9 [facility] Comment on above: Result Comment: IG% - Immature Granulocytes (promyelocytes, myelocytes andmetamyelocytes) > 1% indicates that a LEFT SHIFT is Present. Performed By: #### L 100.0100, L500.2500 ####[facility] [address] [place], [address] Lymphocytes/100 WBC (Bld) 14.0 % Low 19-41 [facility] Comment on above: Performed By: #### L 100.0100, L500.2500 ####[facility] [address] [place], [address] MCH (RBC) [Entitic mass] 28.2 pg Normal 27.0-32.0 [facility] Comment on above: Performed By: #### L 100.0100, L500.2500 ####[facility] [address] [place], [address] MCHC (RBC) [Mass/Vol] 29.8 g/dL Low 32-36 [facility] Comment on above: Performed By: #### L 100.0100, L500.2500 ####[facility] [address] [place], [address] MCV (RBC) [Entitic vol] 94.7 fL High 80-94 [facility] Comment on above: Performed By: #### L 100.0100, L500.2500 ####[facility] [address] [place], [address] Monocytes/100 WBC (Bld) 7.5 % Normal 0-[address] [facility] Comment on above: Performed By: #### L 100.0100, L500.2500 ####[facility] [address] [place], [address] Neutrophils/100 WBC (Bld) 73.5 % High 47-70 [facility] Comment on above: Performed By: #### L 100.0100, L500.2500 ####[facility] [address] [place], [address] Nucleated RBC (Bld) [#/Vol] 0 10*3/uL Normal 0-5 [facility] Comment on above: Performed By: #### L 100.0100, L500.2500 ####[facility] [address] [place], [address] Platelet mean volume (Bld) [Entitic vol] 10.6 fL Normal 6.2-12.0 [facility] Comment on above: Performed By: #### L 100.0100, L500.2500 ####[facility] [address] [place], [address] Platelets (Bld) [#/Vol] 378 10*3/uL Normal 150-450 [facility] Comment on above: Performed By: #### L 100.0100, L500.2500 ####[facility] [address] [place], [address] RBC (Bld) [#/Vol] 2.66 10*6/uL Low 4.6-6.2 [facility] Comment on above: Performed By: #### L 100.0100, L500.2500 ####[facility] [address] [place], [address] RDW SD 60.4 fl High 35.1-43.9 [facility] Comment on above: Performed By: #### L 100.0100, L500.2500 ####[facility] [address] [place], [address] WBC (Bld) [#/Vol] 17.4 10*3/uL High 4.4-11.0 [facility] Comment on above: Performed By: #### L 100.0100, L500.2500 ####[facility] [address] [place], [address] Consultation - Infectious Dx on 07-16-2024 Consultation - Infectious Dx Normal [facility] Consultation - Nephrologyon 07-16-2024 Consultation - Nephrology Normal [facility] Culture, Blood (WB)on [address] [facility] Comment on above: Performed By: #### M 100.636, M200.1000 ####[facility] [address] [place], [address] Foot 2 Viewson 07-16-[address] [facility] Gram stainOrdered By: Kesha Garcia on 07-16-2024 Microscopic observation Gram stain Nom (Unsp spec) [facility] Hemoglobin A1con 07-16-2024 HbA1c (Bld) [Mass fraction] 6.0 % High 3.8-5.6 [facility] Comment on above: Order Comment: Comme nts: Pre-operative Result Comment: Norm al < 5.7 % Prediabetic 5.7 - 6.4 % Diabetic >or= 6.5 % Please note range changes. Performed By: #### L 300.3900, L501.9985, L300.4310 ####[facility] [address] [place], [address] Hemoglobin A1c percentageOrd ered By: Flavio Young on 07-16-2024 HbA1c (Bld) [Mass fraction] 6.0 % High 3.8-5.6 [facility] MR/POSTOP.ANEon 07-16-2024 MR/POSTOP.ANE Normal [facility] MR/MDKIURZQ6il 07-16-2024 MR/POSTOPAN2 Normal [facility] Operative Reporton Operative Report Normal [facility] Partial Thromboplast Timeon 07-16-2024 aPTT Coag (Bld) [Time] 39.7 s High 24.1-36.2 [facility] Comment on above: Order Comment: Comme nts: Pre-operative Performed By: #### L 300.3900, L501.9985, L300.4310 ####[facility] [address] [place], [address] Prothrombin Time w/INRon INR Coag (PPP) [Relative time] 1.3 {INR} Normal [facility] Comment on above: Order Comment: Comme nts: Pre-operative Performed By: #### L 300.3900, L501.9985, L300.4310 ####[facility] [address] [place], [address] PT Coag (PPP) [Time] 16.8 s High 11.7-14.9 [facility] Comment on above: Order Comment: Comme nts: Pre-operative Performed By: #### L 300.3900, L501.9985, L300.4310 ####[facility] [address] [place], [address] Prothrombin timeOrdered By: Flavio Young on 07-16-2024 PT Coag (PPP) [Time] 16.8 s High 11.7-14.9 [facility] Routine wound cultureOrdered By: Josef Garcia on 07-16-2024 Microbial culture, routine Meth. resistant Staph. aureus Abnormal [facility] Basic Metabolic Profile (BMP )on 07-15-2024 BUN/CRE 13.9 RATIO Normal 10-20 [facility] Comment on above: Performed By: #### L 500.2500, L100.0100 ####[facility] [address] [place], [address] CA,Total 8.8 mg/dL Normal 8.5-10.1 [facility] Comment on above: Performed By: #### L 500.2500, L100.0100 ####[facility] [address] [place], [address] Chloride [Moles/Vol] 98 mmol/L Normal 98-107 [facility] Comment on above: Performed By: #### L 500.2500, L100.0100 ####[facility] [address] [place], [address] CO2 [Moles/Vol] 27.0 mmol/L Normal 21.0-32.0 [facility] Comment on above: Performed By: #### L 500.2500, L100.0100 ####[facility] [address] [place], [address] Creatinine [Mass/Vol] 3.97 mg/dL High 0.70-1.30 [facility] Comment on above: Result Comment: The validity of the calculated GFR GFRAA in patients over70 years has not been determined. Clinical correlation isessential. Performed By: #### L 500.2500, L100.0100 ####[facility] [address] [place], [address] ECRCL 14.64 ml/min Normal [facility] Comment on above: Performed By: #### L 500.2500, L100.0100 ####[facility] [address] [place], [address] EST GFR - AA 19 mL/min Low >60 [facility] Comment on above: Result Comment: Afri can [place] GFR Calc Performed By: #### L 500.2500, L100.0100 ####[facility] [address] [place], [address] GAP 9 Normal 5-15 [facility] Comment on above: Performed By: #### L 500.2500, L100.0100 ####[facility] [address] [place], [address] GFR/1.73 sq M.predicted among non-blacks MDRD (S/P/Bld) [Vol rate/Area] 15 mL/min/{1.73_m2} Low >60 [facility] Comment on above: Result Comment: Non- GFR Calc Performed By: #### L 500.2500, L100.0100 ####[facility] [address] [place], [address] Glucose [Mass/Vol] 204 mg/dL High 74-106 [facility] Comment on above: Result Comment: Gluc ose result greater than or equal to 200 mg/dLsuggests DIABETES MELLITUS per A.D.A. criteria. Performed By: #### L 500.2500, L100.0100 ####[facility] [address] [place], [address] Potassium [Moles/Vol] 3.5 mmol/L Normal 3.5-5.1 [facility] Comment on above: Performed By: #### L 500.2500, L100.0100 ####[facility] [address] [place], [address] Sodium [Moles/Vol] 133 mmol/L Low 136-145 [facility] Comment on above: Performed By: #### L 500.2500, L100.0100 ####[facility] [address] [place], [address] Urea nitrogen [Mass/Vol] 55 mg/dL High 7-18 [facility] Comment on above: Performed By: #### L 500.2500, L100.0100 ####[facility] [address] [place], [address] Bedside Glucoseon 07-15-2024 FINGERSTICK GLU 138 mg/dL High 74-106 [facility] Comment on above: Result Comment: FANG GEMENT OF PATIENT CARE PER NURSING PROTOCOL Performed By: #### L 501.080 ####[facility] [address] [place], [address] FINGERSTICK GLU 57 mg/dL Low 74-106 [facility] Comment on above: Result Comment: FANG GEMENT OF PATIENT CARE PER NURSING PROTOCOL Performed By: #### L 501.080 ####[facility] [address] [place], [address] FINGERSTICK GLU 141 mg/dL High 74-106 [facility] Comment on above: Result Comment: FANG GEMENT OF PATIENT CARE PER NURSING PROTOCOL Performed By: #### L 501.080 ####[facility] [address] [place], [address] FINGERSTICK GLU 214 mg/dL High 74-106 [facility] Comment on above: Result Comment: FANG GEMENT OF PATIENT CARE PER NURSING PROTOCOL Performed By: #### L 501.080 ####[facility] [address] [place], [address] CBC W/Diff, Automatedon 06-24 Absolute Lymph 2.18 X10 3/uL Normal 0.83-4.51 [facility] Comment on above: Performed By: #### L 500.2500, L100.0100 ####[facility] [address] [place], [address] Absolute Neut 14.1 X10 3/uL High 2.0-7.7 [facility] Comment on above: Performed By: #### L 500.2500, L100.0100 ####[facility] [address] [place], [address] Basophils/100 WBC (Bld) 0.2 % Normal 0-1 [facility] Comment on above: Performed By: #### L 500.2500, L100.0100 ####[facility] [address] [place], [address] Eosinophils/100 WBC (Bld) 1.2 % Normal 0-5 [facility] Comment on above: Performed By: #### L 500.2500, L100.0100 ####[facility] [address] [place], [address] Erythrocyte distribution width (RBC) [Ratio] 17.6 % High 11.6-14.6 [facility] Comment on above: Performed By: #### L 500.2500, L100.0100 ####[facility] [address] [place], [address] Hematocrit (Bld) [Volume fraction] 26.7 % Low 40-54 [facility] Comment on above: Performed By: #### L 500.2500, L100.0100 ####[facility] [address] [place], [address] Hemoglobin (Bld) [Mass/Vol] 7.8 g/dL Low 13.0-16.5 [facility] Comment on above: Performed By: #### L 500.2500, L100.0100 ####[facility] [address] [place], [address] IG% 2.500 High 0.0-0.9 [facility] Comment on above: Result Comment: IG% - Immature Granulocytes (promyelocytes, myelocytes andmetamyelocytes) > 1% indicates that a LEFT SHIFT is Present. Performed By: #### L 500.2500, L100.0100 ####[facility] [address] [place], [address] Lymphocytes/100 WBC (Bld) 11.9 % Low 19-41 [facility] Comment on above: Performed By: #### L 500.2500, L100.0100 ####[facility] [address] [place], [address] MCH (RBC) [Entitic mass] 27.9 pg Normal 27.0-32.0 [facility] Comment on above: Performed By: #### L 500.2500, L100.0100 ####[facility] [address] [place], [address] MCHC (RBC) [Mass/Vol] 29.2 g/dL Low 32-36 [facility] Comment on above: Performed By: #### L 500.2500, L100.0100 ####[facility] [address] [place], [address] MCV (RBC) [Entitic vol] 95.4 fL High 80-94 [facility] Comment on above: Performed By: #### L 500.2500, L100.0100 ####[facility] [address] [place], [address] Monocytes/100 WBC (Bld) 7.1 % Normal 0-10 [facility] Comment on above: Performed By: #### L 500.2500, L100.0100 ####[facility] [address] [place], [address] Neutrophils/100 WBC (Bld) 77.1 % High 47-70 [facility] Comment on above: Performed By: #### L 500.2500, L100.0100 ####[facility] [address] [place], [address] Nucleated RBC (Bld) [#/Vol] 0 10*3/uL Normal 0-5 [facility] Comment on above: Performed By: #### L 500.2500, L100.0100 ####[facility] [address] [place], [address] Platelet mean volume (Bld) [Entitic vol] 10.7 fL Normal 6.2-12.0 [facility] Comment on above: Performed By: #### L 500.2500, L100.0100 ####[facility] [address] [place], [address] Platelets (Bld) [#/Vol] 361 10*3/uL Normal 150-450 [facility] Comment on above: Performed By: #### L 500.2500, L100.0100 ####[facility] [address] [place], [address] RBC (Bld) [#/Vol] 2.80 10*6/uL Low 4.6-6.2 [facility] Comment on above: Performed By: #### L 500.2500, L100.0100 ####[facility] [address] [place], [address] RDW SD 61.1 fl High 35.1-43.9 [facility] Comment on above: Performed By: #### L 500.2500, L100.0100 ####[facility] [address] [place], [address] WBC (Bld) [#/Vol] 18.3 10*3/uL High 4.4-11.0 [facility] Comment on above: Performed By: #### L 500.2500, L100.0100 ####[facility] [address] [place], [address] Foot min 3 Viewson 5 Foot min [address] [facility] Wound Cultureon 07-15-[address] [facility] Comment on above: Performed By: #### M 100.4001, M100.2000, M100.3000 ####[facility] [address] [place], [address] BC GPC IDon 07-14-2024 BC GPC ID Normal [facility] Comment on above: Performed By: #### M 100.636, M200.1000 ####[facility] [address] [place], [address] Basic Metabolic Profile (BMP )on 07-14-2024 BUN/CRE 11.0 RATIO Normal 10-20 [facility] Comment on above: Performed By: #### L 500.2500, L100.0100 ####[facility] [address] [place], [address] CA,Total 8.6 mg/dL Normal 8.5-10.1 [facility] Comment on above: Performed By: #### L 500.2500, L100.0100 ####[facility] [address] [place], [address] Chloride [Moles/Vol] 94 mmol/L Low 98-107 [facility] Comment on above: Performed By: #### L 500.2500, L100.0100 ####[facility] [address] [place], [address] CO2 [Moles/Vol] 30.0 mmol/L Normal 21.0-32.0 [facility] Comment on above: Performed By: #### L 500.2500, L100.0100 ####[facility] [address] [place], [address] Creatinine [Mass/Vol] 4.84 mg/dL High 0.70-1.30 [facility] Comment on above: Result Comment: The validity of the calculated GFR GFRAA in patients over70 years has not been determined. Clinical correlation isessential. Performed By: #### L 500.2500, L100.0100 ####[facility] [address] [place], [address] ECRCL 11.51 ml/min Normal [facility] Comment on above: Performed By: #### L 500.2500, L100.0100 ####[facility] [address] [place], [address] EST GFR - AA 15 mL/min Low >60 [facility] Comment on above: Result Comment: Afri can [place] GFR Calc Performed By: #### L 500.2500, L100.0100 ####[facility] [address] [place], [address] GAP 8 Normal 5-15 [facility] Comment on above: Performed By: #### L 500.2500, L100.0100 ####[facility] [address] [place], [address] GFR/1.73 sq M.predicted among non-blacks MDRD (S/P/Bld) [Vol rate/Area] 12 mL/min/{1.73_m2} Low >60 [facility] Comment on above: Result Comment: Non- GFR Calc Performed By: #### L 500.2500, L100.0100 ####[facility] [address] [place], [address] Glucose [Mass/Vol] 244 mg/dL High 74-106 [facility] Comment on above: Result Comment: Gluc ose result greater than or equal to 200 mg/dLsuggests DIABETES MELLITUS per A.D.A. criteria. Performed By: #### L 500.2500, L100.0100 ####[facility] [address] [place], [address] Potassium [Moles/Vol] 3.4 mmol/L Low 3.5-5.1 [facility] Comment on above: Performed By: #### L 500.2500, L100.0100 ####[facility] [address] [place], [address] Sodium [Moles/Vol] 132 mmol/L Low 136-145 [facility] Comment on above: Performed By: #### L 500.2500, L100.0100 ####[facility] [address] [place], [address] Urea nitrogen [Mass/Vol] 53 mg/dL High 7-18 [facility] Comment on above: Performed By: #### L 500.2500, L100.0100 ####[facility] [address] [place], [address] Bedside Glucoseon 07-14-2024 FINGERSTICK GLU 196 mg/dL High 74-106 [facility] Comment on above: Result Comment: FANG GEMENT OF PATIENT CARE PER NURSING PROTOCOL Performed By: #### L 501.080 ####[facility] [address] [place], [address] FINGERSTICK GLU 103 mg/dL Normal 74-106 [facility] Comment on above: Result Comment: FANG GEMENT OF PATIENT CARE PER NURSING PROTOCOL Performed By: #### L 501.080 ####[facility] [address] [place], [address] FINGERSTICK GLU 183 mg/dL High 74-106 [facility] Comment on above: Result Comment: FANG GEMENT OF PATIENT CARE PER NURSING PROTOCOL Performed By: #### L 501.080 ####[facility] [address] [place], [address] FINGERSTICK GLU 239 mg/dL High 74-106 [facility] Comment on above: Result Comment: FANG GEMENT OF PATIENT CARE PER NURSING PROTOCOL Performed By: #### L 501.080 ####[facility] [address] [place], [address] CBC W/Diff, Automatedon -2 -2024 Absolute Lymph 1.49 X10 3/uL Normal 0.83-4.51 [facility] Comment on above: Performed By: #### L 500.2500, L100.0100 ####[facility] [address] [place], [address] Absolute Neut 14.7 X10 3/uL High 2.0-7.7 [facility] Comment on above: Performed By: #### L 500.2500, L100.0100 ####[facility] [address] [place], [address] Basophils/100 WBC (Bld) 0.2 % Normal 0-1 [facility] Comment on above: Performed By: #### L 500.2500, L100.0100 ####[facility] [address] [place], [address] Eosinophils/100 WBC (Bld) 0.9 % Normal 0-5 [facility] Comment on above: Performed By: #### L 500.2500, L100.0100 ####[facility] [address] [place], [address] Erythrocyte distribution width (RBC) [Ratio] 17.6 % High 11.6-14.6 [facility] Comment on above: Performed By: #### L 500.2500, L100.0100 ####[facility] [address] [place], [address] Hematocrit (Bld) [Volume fraction] 25.3 % Low 40-54 [facility] Comment on above: Performed By: #### L 500.2500, L100.0100 ####[facility] [address] [place], [address] Hemoglobin (Bld) [Mass/Vol] 7.8 g/dL Low 13.0-16.5 [facility] Comment on above: Performed By: #### L 500.2500, L100.0100 ####[facility] [address] [place], [address] IG% 3.300 High 0.0-0.9 [facility] Comment on above: Result Comment: IG% - Immature Granulocytes (promyelocytes, myelocytes andmetamyelocytes) > 1% indicates that a LEFT SHIFT is Present. Performed By: #### L 500.2500, L100.0100 ####[facility] [address] [place], [address] Lymphocytes/100 WBC (Bld) 8.2 % Low 19-41 [facility] Comment on above: Performed By: #### L 500.2500, L100.0100 ####[facility] [address] [place], [address] MCH (RBC) [Entitic mass] 28.8 pg Normal 27.0-32.0 [facility] Comment on above: Performed By: #### L 500.2500, L100.0100 ####[facility] [address] [place], [address] MCHC (RBC) [Mass/Vol] 30.8 g/dL Low 32-36 [facility] Comment on above: Performed By: #### L 500.2500, L100.0100 ####[facility] [address] [place], [address] MCV (RBC) [Entitic vol] 93.4 fL Normal 80-94 [facility] Comment on above: Performed By: #### L 500.2500, L100.0100 ####[facility] [address] [place], [address] Monocytes/100 WBC (Bld) 7.2 % Normal 0-10 [facility] Comment on above: Performed By: #### L 500.2500, L100.0100 ####[facility] [address] [place], [address] Neutrophils/100 WBC (Bld) 80.2 % High 47-70 [facility] Comment on above: Performed By: #### L 500.2500, L100.0100 ####[facility] [address] [place], [address] Nucleated RBC (Bld) [#/Vol] 0 10*3/uL Normal 0-5 [facility] Comment on above: Performed By: #### L 500.2500, L100.0100 ####[facility] [address] [place], [address] Platelet mean volume (Bld) [Entitic vol] 10.6 fL Normal 6.2-12.0 [facility] Comment on above: Performed By: #### L 500.2500, L100.0100 ####[facility] [address] [place], [address] Platelets (Bld) [#/Vol] 346 10*3/uL Normal 150-450 [facility] Comment on above: Performed By: #### L 500.2500, L100.0100 ####[facility] [address] [place], [address] RBC (Bld) [#/Vol] 2.71 10*6/uL Low 4.6-6.2 [facility] Comment on above: Performed By: #### L 500.2500, L100.0100 ####[facility] [address] [place], [address] RDW SD 59.7 fl High 35.1-43.9 [facility] Comment on above: Performed By: #### L 500.2500, L100.0100 ####[facility] [address] [place], [address] WBC (Bld) [#/Vol] 18.3 10*3/uL High 4.4-11.0 [facility] Comment on above: Performed By: #### L 500.2500, L100.0100 ####[facility] [address] [place], [address] Echo Completeon 07-14-[address] [facility] Gram Stainon 07-14-2024 GS Gram Stain 1+ Gram positive rods 4+ Gram positive cocci Rare White Blood Cells No Epithelial cells Normal [facility] Comment on above: Performed By: #### M 100.4001, M100.2000, M100.3000 ####[facility] [address] [place], [address] Vancomycin, Random Levelon 0 07-14-2024 VANCO, RANDOM 15.3 ug/mL High 0.0-15.0 [facility] Comment on above: Order Comment: Comme nts: please draw with AM labs Result Comment: VANC OMYCIN STANDARD DRUG THERAPY: CRITICAL VALUE IS > 15.0 mg/LVANCOMYCIN HIGH INTENSITY THERAPY: CRITICAL VALUE IS > 20.0 mg/LPLEASE CONTACT PHARMACY SERVICES (#0851) FOR INTERPRETATIONOF RESULTS. THIS RESULT DOES NOT REPRESENT A PEAK OR TROUGHLEVEL FOR THIS DRUG. Performed By: #### L 501.8850 ####[facility] [address] [place], [address] Anaerobic cultureOrdered By: Chung Humphreys on 07-13-2024 Bacteria identified Anaer cx Nom (Unsp spec) Clostridium perfringens Abnormal [facility] Basic Metabolic Profile (BMP )on 07-13-2024 BUN/CRE 8.5 RATIO Low 10-20 [facility] Comment on above: Performed By: #### L 101.9900, L500.2500, L100.0100, L501.6710 ####[facility] [address] [place], [address] CA,Total 8.9 mg/dL Normal 8.5-10.1 [facility] Comment on above: Performed By: #### L 101.9900, L500.2500, L100.0100, L501.6710 ####[facility] [address] [place], [address] Chloride [Moles/Vol] 93 mmol/L Low 98-107 [facility] Comment on above: Performed By: #### L 101.9900, L500.2500, L100.0100, L501.6710 ####[facility] [address] [place], [address] CO2 [Moles/Vol] 32.0 mmol/L Normal 21.0-32.0 [facility] Comment on above: Performed By: #### L 101.9900, L500.2500, L100.0100, L501.6710 ####[facility] [address] [place], [address] Creatinine [Mass/Vol] 4.35 mg/dL High 0.70-1.30 [facility] Comment on above: Result Comment: The validity of the calculated GFR GFRAA in patients over70 years has not been determined. Clinical correlation isessential. Performed By: #### L 101.9900, L500.2500, L100.0100, L501.6710 ####[facility] [address] [place], [address] ECRCL 13.09 ml/min Normal [facility] Comment on above: Performed By: #### L 101.9900, L500.2500, L100.0100, L501.6710 ####[facility] [address] [place], [address] EST GFR - AA 17 mL/min Low >60 [facility] Comment on above: Result Comment: Afri can [place] GFR Calc Performed By: #### L 101.9900, L500.2500, L100.0100, L501.6710 ####[facility] [address] [place], [address] GAP 8 Normal 5-15 [facility] Comment on above: Performed By: #### L 101.9900, L500.2500, L100.0100, L501.6710 ####[facility] [address] [place], [address] GFR/1.73 sq M.predicted among non-blacks MDRD (S/P/Bld) [Vol rate/Area] 14 mL/min/{1.73_m2} Low >60 [facility] Comment on above: Result Comment: Non- GFR Calc Performed By: #### L 101.9900, L500.2500, L100.0100, L501.6710 ####[facility] [address] [place], [address] Glucose [Mass/Vol] 132 mg/dL High 74-106 [facility] Comment on above: Result Comment: Fast ing Glucose result greater than or equal to 126 mg/dLsuggests DIABETES MELLITUS per A.D.A. criteria. Performed By: #### L 101.9900, L500.2500, L100.0100, L501.6710 ####[facility] [address] [place], [address] Potassium [Moles/Vol] 3.7 mmol/L Normal 3.5-5.1 [facility] Comment on above: Result Comment: Slig ht Hemolysis, Result may be falsely increased. Performed By: #### L 101.9900, L500.2500, L100.0100, L501.6710 ####[facility] [address] [place], [address] Sodium [Moles/Vol] 133 mmol/L Low 136-145 [facility] Comment on above: Performed By: #### L 101.9900, L500.2500, L100.0100, L501.6710 ####[facility] [address] [place], [address] Urea nitrogen [Mass/Vol] 37 mg/dL High 7-18 [facility] Comment on above: Performed By: #### L 101.9900, L500.2500, L100.0100, L501.6710 ####[facility] [address] [place], [address] Bedside Glucoseon 07-13-2024 FINGERSTICK GLU 231 mg/dL High 74-106 [facility] Comment on above: Result Comment: FANG VAZQUEZ OF PATIENT CARE PER NURSING PROTOCOL Performed By: #### L 501.080 ####[facility] [address] [place], [place], [address] Blood cultureOrdered By: Noelle Humphreys on 07-13-2024 Bacteria identified Cx Nom (Bld) Meth. resistant Staph. aureus Abnormal [facility] Blood manual differential co mment interpretation (narrative result)Ordered By: Chung Humphreys on 07-13-2024 Manual differential comment Jeff (Bld) [Interp] SEE COMMENT [facility] C-reactive protein measureme nt by high sensitivity methodOrdered By: Chung Humphreys on 07-13-2024 C-reactive protein measurement by high sensitivity method 301.00 mg/L High 0.0-3.0 [facility] CRPon 07-13-2024 C-REACTIVE PROT 301.00 mg/L High 0.0-3.0 [facility] Comment on above: Result Comment: C-Re active Protein (CRP) provides useful information for thediagnosis, therapy and monitoring of inflammatory processesand associated diseases. For the evaluation of Relative Riskfor Cardiovascular Disease, a High Sensitivity CRP (HSCRP)should be ordered. Performed By: #### L 101.9900, L500.2500, L100.0100, L501.6710 ####[facility] [address] [place], [address] Chest PA and Lateralon 07-13 Chest PA and Lateral Normal [facility] Emergency Department Summary on 07-13-2024 [address] Normal [facility] Erythrocyte Sed Rateon 07-13 SED RATE 53 mm/hr High 0-20 [facility] Comment on above: Performed By: #### L 101.9900, L500.2500, L100.0100, L501.6710 ####[facility] [address] [place], [place], [address] Erythrocyte morphology asses smentOrdered By: Chung Humphreys on 07-13-2024 RBC morphology finding Nom (Bld) N CHROM NORMAL NORM C&C [facility] Erythrocyte sedimentation ra teOrdered By: Chung Humphreys on 07-13-2024 ESR (Bld) [Velocity] 53 mm/h High 0-20 [facility] Foot min 3 Viewson 5 Foot min [address] [facility] Gram stainOrdered By: Kevin Humphreys on 07-13-2024 Microscopic observation Gram stain Nom (Unsp spec) [facility] H AND P Exam - Hospitaliston 07-13-2024 H&P Exam - Hospitalist Normal [facility] Hypochromatic red blood cell detectionOrdered By: Chung Humphreys on 07-13-2024 Hypochromia Ql (Bld) RARE [facility] Influenza virus A and B and SARS-CoV-2 (COVID-19) and Respiratory syncytial virus RNAOrdered By: Chung Humphreys on 07-13-2024 SARS-CoV-2 (COVID-19) RNA EZEKIEL+probe Ql (Unsp spec) [facility] M100.678on 07-13-2024 M100.678 SARS-CoV-2 (COVID 19 ) Negative INFLUENZA A Negative INFLUENZA B Negative RSV PCR Negative Normal [facility] Comment on above: Performed By: #### M 100.678 ####[facility] [address] [place], [place], [id number] Macrocytes detectionOrdered By: Chung Humphreys on 07-13-2024 Macrocytes Ql (Bld) 1+ [facility] No Panel InformationOrdered By: Chung Humphreys on 07-13-2024 1+ [facility] Organism identificationOrder ed By: Chung Humphreys on 07-13-2024 Microorganism identified Cx Nom (Unsp spec) Meth. resistant Staph. aureus Abnormal [facility] Platelet estimateOrdered By: Chung Humphreys on 07-13-2024 Platelets LM Ql (Bld) ADEQUATE ADEQ [facility] Routine wound cultureOrdered By: Chung Humphreys on 07-13-2024 Microbial culture, routine Meth. resistant Staph. aureus Abnormal [facility] Urinalysis, Completeon 07-13 BACTERIA Normal None Seen [facility] Comment on above: Order Comment: SENT LABEL TO MS3 TO COLLECTCOLLECTOR TO SPECIFY Result Comment: JAYY ENT DISCHARGED Performed By: #### L 400.0001 ####[facility] [address] [place], [address] BILIRUBIN URINE Normal Negative [facility] Comment on above: Order Comment: SENT LABEL TO MS3 TO COLLECTCOLLECTOR TO SPECIFY Result Comment: JAYY ENT DISCHARGED Performed By: #### L 400.0001 ####[facility] [address] [place], [address] Clarity (U) Normal Clear [facility] Comment on above: Order Comment: SENT LABEL TO MS3 TO COLLECTCOLLECTOR TO SPECIFY Result Comment: JAYY ENT DISCHARGED Performed By: #### L 400.0001 ####[facility] [address] [place], [address] Color (U) Normal Yellow [facility] Comment on above: Order Comment: SENT LABEL TO MS3 TO COLLECTCOLLECTOR TO SPECIFY Result Comment: JAYY ENT DISCHARGED Performed By: #### L 400.0001 ####[facility] [address] [place], [address] EPI,SQUAMOUS Normal 0-5 [facility] Comment on above: Order Comment: SENT LABEL TO MS3 TO COLLECTCOLLECTOR TO SPECIFY Result Comment: JAYY ENT DISCHARGED Performed By: #### L 400.0001 ####[facility] [address] [place], [address] GLUCOSE, UR Normal Normal [facility] Comment on above: Order Comment: SENT LABEL TO MS3 TO COLLECTCOLLECTOR TO SPECIFY Result Comment: JAYY ENT DISCHARGED Performed By: #### L 400.0001 ####[facility] [address] [place], [address] KETONE UR Normal Negative [facility] Comment on above: Order Comment: SENT LABEL TO MS3 TO COLLECTCOLLECTOR TO SPECIFY Result Comment: JAYY ENT DISCHARGED Performed By: #### L 400.0001 ####[facility] [address] [facility] [address] LEUK ESTERASE Normal Negative [facility] Comment on above: Order Comment: SENT LABEL TO MS3 TO COLLECTCOLLECTOR TO SPECIFY Result Comment: JAYY ENT DISCHARGED Performed By: #### L 400.0001 ####[facility] [address] [place] [id number] Mucus Ql (Urine sed) Normal [facility] Comment on above: Order Comment: SENT LABEL TO MS3 TO COLLECTCOLLECTOR TO SPECIFY Result Comment: JAYY ENT DISCHARGED Performed By: #### L 400.0001 ####[facility] [address] [facility] [address] Nitrite Ql (U) Normal Negative [facility] Comment on above: Order Comment: SENT LABEL TO MS3 TO COLLECTCOLLECTOR TO SPECIFY Result Comment: JAYY ENT DISCHARGED Performed By: #### L 400.0001 ####[facility] [address] [facility] [address] OCCULT BLOOD-UR Normal Negative [facility] Comment on above: Order Comment: SENT LABEL TO MS3 TO COLLECTCOLLECTOR TO SPECIFY Result Comment: JAYY ENT DISCHARGED Performed By: #### L 400.0001 ####[facility] [address] [facility] [address] pH UR Normal 5.0 - 8.0 [facility] Comment on above: Order Comment: SENT LABEL TO MS3 TO COLLECTCOLLECTOR TO SPECIFY Result Comment: JAYY ENT DISCHARGED Performed By: #### L 400.0001 ####[facility] [address] [place], [address] PROT DIPSTX Normal Negative [facility] Comment on above: Order Comment: SENT LABEL TO MS3 TO COLLECTCOLLECTOR TO SPECIFY Result Comment: JAYY ENT DISCHARGED Performed By: #### L 400.0001 ####[facility] [address] [place], [address] RBC Normal 0-5 [facility] Comment on above: Order Comment: SENT LABEL TO MS3 TO COLLECTCOLLECTOR TO SPECIFY Result Comment: JAYY ENT DISCHARGED Performed By: #### L 400.0001 ####[facility] [address] [place], [address] SP.GR. DIPSTX Normal 1.002-1.030 [facility] Comment on above: Order Comment: SENT LABEL TO MS3 TO COLLECTCOLLECTOR TO SPECIFY Result Comment: JAYY ENT DISCHARGED Performed By: #### L 400.0001 ####[facility] [address] [place], [address] [facility] Comment on above: Order Comment: SENT LABEL TO MS3 TO COLLECTCOLLECTOR TO SPECIFY Result Comment: JAYY ENT DISCHARGED Performed By: #### L 400.0001 ####[facility] [address] [place], [address] [facility] Comment on above: Order Comment: SENT LABEL TO MS3 TO COLLECTCOLLECTOR TO SPECIFY Result Comment: JAYY ENT DISCHARGED Performed By: #### L 400.0001 ####[facility] [address] [place], [address] WBC Normal 0-5 [facility] Comment on above: Order Comment: SENT LABEL TO MS3 TO COLLECTCOLLECTOR TO SPECIFY Result Comment: JAYY ENT DISCHARGED Performed By: #### L 400.0001 ####[facility] [address] [place], [address] CNPTOUTREACHon 07-11-2024 CNPTOUTREACH Normal [facility] Absolute lymphocyte countOrd ered By: Nando Wiggins on 07-09-2024 Lymphocytes Auto (Unsp spec) [#/Vol] 1.88 10*3/uL 0.83-4.51 [facility] Automated lymphocyte count a s percentage of total leukocytesOrdered By: Nando Wiggins on 07-09-2024 Lymphocytes/100 WBC Auto (Unsp spec) 12.0 % Low 19-41 [facility] Basophil percentageOrdered B y: Nando Wiggins on 07-09-2024 Basophils/100 WBC (Bld) 0.2 % 0-1 [facility] Carbon dioxide measurementOr dered By: Nando Wiggins on 07-09-2024 CO2 [Moles/Vol] 29.0 mmol/L 21.0-32.0 [facility] Chloride measurementOrdered By: Nando Wiggins on 07-09-2024 Chloride [Moles/Vol] 89 mmol/L Low 98-107 [facility] Eosinophil percentageOrdered By: Nando Wiggins on 07-09-2024 Eosinophils/100 WBC (Bld) 0.4 % 0-5 [facility] Erythrocyte distribution wid th ratioOrdered By: Nando Wiggins on 07-09-2024 Erythrocyte distribution width (RBC) [Ratio] 16.9 % High 11.6-14.6 [facility] Erythrocyte distribution wid th standard deviationOrdered By: Nando Wiggins on 07-09-2024 Erythrocyte distribution width (RBC) [Ratio] 57.9 fl High 35.1-43.9 [facility] Glomerular filtration rate ( GFR) estimationOrdered By: Nando Wiggins on 07-09-2024 GFR/1.73 sq M.predicted among non-blacks MDRD (S/P/Bld) [Vol rate/Area] 11 mL/min/{1.73_m2} Low >60 [facility] Glucose measurementOrdered B y: Nando Wiggins on 07-09-2024 Glucose [Mass/Vol] 131 mg/dL High 74-106 [facility] Hematocrit Auto (Bld) [Volum e fraction]Ordered By: Nando Wiggins on 07-09-2024 Hematocrit (Bld) [Volume fraction] 26.0 % Low 40-54 [facility] Hemoglobin measurementOrdere d By: Nando Wiggins on 07-09-2024 Hemoglobin (Bld) [Mass/Vol] 7.7 g/dL Low 13.0-16.5 [facility] Immature granulocytes/100 WB C Auto (Bld)Ordered By: Kathiebiancalilian Meeklakshmidesiree on 07-09-2024 Immature granulocytes/100 WBC (Bld) 0.600 % 0.0-0.9 [facility] MCV (mean corpuscular volume ) determinationOrdered By: Kathiebiancalilian Meeklakshmidesiree on 07-09-2024 MCV (RBC) [Entitic vol] 94.9 fL High 80-94 [facility] Mean corpuscular hemoglobin (MCH) determinationOrdered By: Kathiefili Edenlakshmidesiree on 07-09-2024 MCH (RBC) [Entitic mass] 28.1 pg 27.0-32.0 [facility] Monocyte percentageOrdered B y: Nando Wiggins on 07-09-2024 Monocytes/100 WBC (Bld) 7.0 % 0-10 [facility] Neutrophil percentageOrdered By: Nando Wiggins on 07-09-2024 Neutrophils/100 WBC (Bld) 79.8 % High 47-70 [facility] Platelet countOrdered By: Kathie Wiggins on 07-09-2024 Platelets (Bld) [#/Vol] 258 10*3/uL 150-450 [facility] Potassium measurementOrdered By: Kathiebiancalilian Meeklakshmidesiree on 07-09-2024 Potassium [Moles/Vol] 3.6 mmol/L 3.5-5.1 [facility] RBC Auto (Bld) [#/Vol]Ordere d By: Nando Wiggins on 07-09-2024 RBC (Bld) [#/Vol] 2.74 10*6/uL Low 4.6-6.2 [facility] Serum or plasma calcium lilli urement (mass/volume)Ordered By: Kathiebiancasrinathwolf Edenlakshmidesiree on 07-09-2024 Calcium [Mass/Vol] 9.2 mg/dL 8.5-10.1 [facility] Serum or plasma creatinine m easurement (mass/volume)Ordered By: Nando Wiggins on 07-09-2024 Creatinine [Mass/Vol] 5.11 mg/dL High 0.70-1.30 [facility] Serum or plasma urea nitroge n measurement (mass/volume)Ordered By: Nando Wiggins on 07-09-2024 Urea nitrogen [Mass/Vol] 61 mg/dL High 7-18 [facility] Sodium levelOrdered By: Deb quintana Meeklakshmidesiree on 07-09-2024 Sodium [Moles/Vol] 129 mmol/L Low 136-145 [facility] White blood cell (WBC) count Ordered By: Nando Wiggins on 07-09-2024 WBC (Bld) [#/Vol] 15.7 10*3/uL High 4.4-11.0 [facility] 12 Lead EKGon 07-07-[address] [facility] Absolute lymphocyte countOrd ered By: Alicia Loo on 07-07-2024 Lymphocytes Auto (Unsp spec) [#/Vol] 1.18 10*3/uL 0.83-4.51 [facility] Automated lymphocyte count a s percentage of total leukocytesOrdered By: Alicia Loo on 07-07-2024 Lymphocytes/100 WBC Auto (Unsp spec) 13.1 % Low 19-41 [facility] Basic Metabolic Profile (BMP )on 07-07-2024 BUN/CRE 11.0 RATIO Normal 10-20 [facility] Comment on above: Order Comment: 'TROP ' Serial specimen #1, #2 or #3: 1 Performed By: #### L 501.4020, L500.2500, L100.0100 ####[facility] [address] [place], [place], [id number] CA,Total 8.5 mg/dL Normal 8.5-10.1 [facility] Comment on above: Order Comment: 'TROP ' Serial specimen #1, #2 or #3: 1 Performed By: #### L 501.4020, L500.2500, L100.0100 ####[facility] [address] [place], [address] Chloride [Moles/Vol] 91 mmol/L Low 98-107 [facility] Comment on above: Order Comment: 'TROP ' Serial specimen #1, #2 or #3: 1 Performed By: #### L 501.4020, L500.2500, L100.0100 ####[facility] [address] [place], [address] CO2 [Moles/Vol] 33.0 mmol/L High 21.0-32.0 [facility] Comment on above: Order Comment: 'TROP ' Serial specimen #1, #2 or #3: 1 Performed By: #### L 501.4020, L500.2500, L100.0100 ####[facility] [address] [place], [address] Creatinine [Mass/Vol] 3.01 mg/dL High 0.70-1.30 [facility] Comment on above: Order Comment: 'TROP ' Serial specimen #1, #2 or #3: 1 Result Comment: The validity of the calculated GFR GFRAA in patients over70 years has not been determined. Clinical correlation isessential. Performed By: #### L 501.4020, L500.2500, L100.0100 ####[facility] [address] [place], [address] ECRCL 19.28 ml/min Normal [facility] Comment on above: Order Comment: 'TROP ' Serial specimen #1, #2 or #3: 1 Performed By: #### L 501.4020, L500.2500, L100.0100 ####[facility] [address] [place], [address] EST GFR - AA 26 mL/min Low >60 [facility] Comment on above: Order Comment: 'TROP ' Serial specimen #1, #2 or #3: 1 Result Comment: Afri can [place] GFR Calc Performed By: #### L 501.4020, L500.2500, L100.0100 ####[facility] [address] [place], [address] GAP 8 Normal 5-15 [facility] Comment on above: Order Comment: 'TROP ' Serial specimen #1, #2 or #3: 1 Performed By: #### L 501.4020, L500.2500, L100.0100 ####[facility] [address] [place], [address] GFR/1.73 sq M.predicted among non-blacks MDRD (S/P/Bld) [Vol rate/Area] 21 mL/min/{1.73_m2} Low >60 [facility] Comment on above: Order Comment: 'TROP ' Serial specimen #1, #2 or #3: 1 Result Comment: Non- GFR Calc Performed By: #### L 501.4020, L500.2500, L100.0100 ####[facility] [address] [place], [address] Glucose [Mass/Vol] 157 mg/dL High 74-106 [facility] Comment on above: Order Comment: 'TROP ' Serial specimen #1, #2 or #3: 1 Result Comment: Fast ing Glucose result greater than or equal to 126 mg/dLsuggests DIABETES MELLITUS per A.D.A. criteria. Performed By: #### L 501.4020, L500.2500, L100.0100 ####[facility] [address] [place], [address] Potassium [Moles/Vol] 3.4 mmol/L Low 3.5-5.1 [facility] Comment on above: Order Comment: 'TROP ' Serial specimen #1, #2 or #3: 1 Performed By: #### L 501.4020, L500.2500, L100.0100 ####[facility] [address] [place], [address] Sodium [Moles/Vol] 132 mmol/L Low 136-145 [facility] Comment on above: Order Comment: 'TROP ' Serial specimen #1, #2 or #3: 1 Performed By: #### L 501.4020, L500.2500, L100.0100 ####[facility] [address] [place], [address] Urea nitrogen [Mass/Vol] 33 mg/dL High 7-18 [facility] Comment on above: Order Comment: 'TROP ' Serial specimen #1, #2 or #3: 1 Performed By: #### L 501.4020, L500.2500, L100.0100 ####[facility] [address] [place], [address] Basophil percentageOrdered B y: Remus Ungur on 07-07-2024 Basophils/100 WBC (Bld) 0.3 % 0-1 [facility] Bilirubin Test strip Ql (U)O rdered By: Remus Ungur on 07-07-2024 Bilirubin Ql (U) 1 mg/dL High Negative [facility] Brain/Head without Contrasto n 07-07-2024 Brain/Head without Contrast Normal [facility] CBC W/Diff, Automatedon 06-23 Absolute Lymph 1.18 X10 3/uL Normal 0.83-4.51 [facility] Comment on above: Performed By: #### L 501.4020, L500.2500, L100.0100 ####[facility] [address] [place], [address] Absolute Neut 6.7 X10 3/uL Normal 2.0-7.7 [facility] Comment on above: Performed By: #### L 501.4020, L500.2500, L100.0100 ####[facility] [address] [place], [address] Basophils/100 WBC (Bld) 0.3 % Normal 0-1 [facility] Comment on above: Performed By: #### L 501.4020, L500.2500, L100.0100 ####[facility] [address] [place], [address] Eosinophils/100 WBC (Bld) 0.1 % Normal 0-5 [facility] Comment on above: Performed By: #### L 501.4020, L500.2500, L100.0100 ####[facility] [address] [place], [address] Erythrocyte distribution width (RBC) [Ratio] 16.6 % High 11.6-14.6 [facility] Comment on above: Performed By: #### L 501.4020, L500.2500, L100.0100 ####[facility] [address] [place], [address] Hematocrit (Bld) [Volume fraction] 27.0 % Low 40-54 [facility] Comment on above: Performed By: #### L 501.4020, L500.2500, L100.0100 ####[facility] [address] [place], [address] Hemoglobin (Bld) [Mass/Vol] 8.1 g/dL Low 13.0-16.5 [facility] Comment on above: Performed By: #### L 501.4020, L500.2500, L100.0100 ####[facility] [address] [place], [address] IG% 0.300 Normal 0.0-0.9 [facility] Comment on above: Result Comment: IG% - Immature Granulocytes (promyelocytes, myelocytes andmetamyelocytes) > 1% indicates that a LEFT SHIFT is Present. Performed By: #### L 501.4020, L500.2500, L100.0100 ####[facility] [address] [place], [address] Lymphocytes/100 WBC (Bld) 13.1 % Low 19-41 [facility] Comment on above: Performed By: #### L 501.4020, L500.2500, L100.0100 ####[facility] [address] [place], [address] MCH (RBC) [Entitic mass] 28.4 pg Normal 27.0-32.0 [facility] Comment on above: Performed By: #### L 501.4020, L500.2500, L100.0100 ####[facility] [address] [place], [address] MCHC (RBC) [Mass/Vol] 30.0 g/dL Low 32-36 [facility] Comment on above: Performed By: #### L 501.4020, L500.2500, L100.0100 ####[facility] [address] [place], [address] MCV (RBC) [Entitic vol] 94.7 fL High 80-[address] [facility] Comment on above: Performed By: #### L 501.4020, L500.2500, L100.0100 ####[facility] [address] [place], [address] Monocytes/100 WBC (Bld) 11.4 % High 0-[address] [facility] Comment on above: Performed By: #### L 501.4020, L500.2500, L100.0100 ####[facility] [address] [place], [address] Neutrophils/100 WBC (Bld) 74.8 % High 47-70 [facility] Comment on above: Performed By: #### L 501.4020, L500.2500, L100.0100 ####[facility] [address] [place], [address] Nucleated RBC (Bld) [#/Vol] 0 10*3/uL Normal 0-5 [facility] Comment on above: Performed By: #### L 501.4020, L500.2500, L100.0100 ####[facility] [address] [place], [address] Platelet mean volume (Bld) [Entitic vol] 10.7 fL Normal 6.2-12.0 [facility] Comment on above: Performed By: #### L 501.4020, L500.2500, L100.0100 ####[facility] [address] [place], [address] Platelets (Bld) [#/Vol] 211 10*3/uL Normal 150-450 [facility] Comment on above: Performed By: #### L 501.4020, L500.2500, L100.0100 ####[facility] [address] [place], [address] RBC (Bld) [#/Vol] 2.85 10*6/uL Low 4.6-6.2 [facility] Comment on above: Performed By: #### L 501.4020, L500.2500, L100.0100 ####[facility] [address] [place], [address] RDW SD 56.3 fl High 35.1-43.9 [facility] Comment on above: Performed By: #### L 501.4020, L500.2500, L100.0100 ####[facility] [address] [place], [address] WBC (Bld) [#/Vol] 9.0 10*3/uL Normal 4.4-11.0 [facility] Comment on above: Performed By: #### L 501.4020, L500.2500, L100.0100 ####[facility] [address] [place], [address] Carbon dioxide measurementOr dered By: Alicia Loo on 07-07-2024 CO2 [Moles/Vol] 33.0 mmol/L High 21.0-32.0 [facility] Chest 1 View (Portable)on Chest 1 View (Portable) Normal [facility] Chloride measurementOrdered By: Alicia Loo on 07-07-2024 Chloride [Moles/Vol] 91 mmol/L Low 98-107 [facility] Emergency Department Summary on 07-07-[address] [facility] Eosinophil percentageOrdered By: Alicia Loo on 07-07-2024 Eosinophils/100 WBC (Bld) 0.1 % 0-5 [facility] Erythrocyte distribution wid th ratioOrdered By: Alicia Loo on 07-07-2024 Erythrocyte distribution width (RBC) [Ratio] 16.6 % High 11.6-14.6 [facility] Erythrocyte distribution wid th standard deviationOrdered By: Alicia Loo on 07-07-2024 Erythrocyte distribution width (RBC) [Ratio] 56.3 fl High 35.1-43.9 [facility] Glomerular filtration rate ( GFR) estimationOrdered By: Alicia Loo on 07-07-2024 GFR/1.73 sq M.predicted among non-blacks MDRD (S/P/Bld) [Vol rate/Area] 21 mL/min/{1.73_m2} Low >60 [facility] Glucose measurementOrdered B y: Alicia Loo on 07-07-2024 Glucose [Mass/Vol] 157 mg/dL High 74-106 [facility] Hematocrit Auto (Bld) [Volum e fraction]Ordered By: Alicia Loo on 07-07-2024 Hematocrit (Bld) [Volume fraction] 27.0 % Low 40-54 [facility] Hemoglobin measurementOrdere d By: Alicia Loo on 07-07-2024 Hemoglobin (Bld) [Mass/Vol] 8.1 g/dL Low 13.0-16.5 [facility] Immature granulocytes/100 WB C Auto (Bld)Ordered By: Alicia Loo on 07-07-2024 Immature granulocytes/100 WBC (Bld) 0.300 % 0.0-0.9 [facility] Influenza virus A and B and SARS-CoV-2 (COVID-19) and Respiratory syncytial virus RNAOrdered By: Alicia Loo on 07-07-2024 SARS-CoV-2 (COVID-19) RNA EZEKIEL+probe Ql (Unsp spec) [facility] Ketones Test strip Ql (U)Ord ered By: Kaeus Eze on 07-07-2024 Ketones Ql (U) 5 mg/dl High Negative [facility] L501.4020on 07-07-2024 TROPONIN-I HS 62 pg/mL Normal 3.0-78.0 [facility] Comment on above: Order Comment: 'TROP ' Serial specimen #1, #2 or #3: 1 Result Comment: Plea se Note: New Test Units and Gender Specific Reference Ranges. For more information see Policy Stat Procedure [place] High Sensitivity Troponin (TNIH) and attachments. Performed By: #### L 501.4020, L500.2500, L100.0100 ####[facility] [address] [place], [address] M100.678on 07-07-2024 M100.678 Pending SARS-CoV-2 (COVID 19) Negative INFLUENZA A Negative INFLUENZA B Negative RSV PCR Negative Normal [facility] Comment on above: Performed By: #### M 100.678 ####[facility] [address] [place], [address] MCV (mean corpuscular volume ) determinationOrdered By: Alicia Loo on 07-07-2024 MCV (RBC) [Entitic vol] 94.7 fL High 80-94 [facility] Mean corpuscular hemoglobin (MCH) determinationOrdered By: Alicia Loo on 07-07-2024 MCH (RBC) [Entitic mass] 28.4 pg 27.0-32.0 [facility] Monocyte percentageOrdered B y: Remus Ungvaughn on 07-07-2024 Monocytes/100 WBC (Bld) 11.4 % High 0-10 [facility] Mucus LM Ql (Urine sed)Order ed By: Remus Eze on 07-07-2024 Mucus Ql (Urine sed) 0 SEEN /hpf [facility] Neutrophil percentageOrdered By: Remus Eze on 07-07-2024 Neutrophils/100 WBC (Bld) 74.8 % High 47-70 [facility] Nitrite Test strip Ql (U)Ord ered By: Alicia Loo on 07-07-2024 Nitrite Ql (U) Negative Negative [facility] Platelet countOrdered By: Chucky Loo on 07-07-2024 Platelets (Bld) [#/Vol] 211 10*3/uL 150-450 [facility] Potassium measurementOrdered By: Alicia Loo on 07-07-2024 Potassium [Moles/Vol] 3.4 mmol/L Low 3.5-5.1 [facility] Protein Test strip Ql (U)Ord ered By: Alicia Loo on 07-07-2024 Protein Ql (U) 100 mg/dl High Negative [facility] RBC Auto (Bld) [#/Vol]Ordere d By: Alicia Loo on 07-07-2024 RBC (Bld) [#/Vol] 2.85 10*6/uL Low 4.6-6.2 [facility] Serum or plasma calcium lilli urement (mass/volume)Ordered By: Alicia Loo on 07-07-2024 Calcium [Mass/Vol] 8.5 mg/dL 8.5-10.1 [facility] Serum or plasma creatinine m easurement (mass/volume)Ordered By: Alicia Loo on 07-07-2024 Creatinine [Mass/Vol] 3.01 mg/dL High 0.70-1.30 [facility] Serum or plasma urea nitroge n measurement (mass/volume)Ordered By: Alicia Loo on 07-07-2024 Urea nitrogen [Mass/Vol] 33 mg/dL High 7-18 [facility] Sodium levelOrdered By: Michael Loo on 07-07-2024 Sodium [Moles/Vol] 132 mmol/L Low 136-145 [facility] Squamous epithelial cells de tection in urine sediment by light microscopyOrdered By: Alicia Loo on 07-07-2024 Epithelial cells.squamous LM Ql (Urine sed) 0 SEEN /hpf 0-5 [facility] Troponin IOrdered By: Alicia Loo on 07-07-2024 Troponin I 62 pg/mL 3.0-78.0 [facility] Urinalysis, Completeon 07-07 RBC 0 SEEN Normal 0-5 [facility] Comment on above: Order Comment: COLOR OF URINE MAY AFFECT DIPSTICK RESULTS.CLEAN CATCH Performed By: #### L 400.0001 ####[facility] [address] [place], [address] WBC 0-5 SEEN Normal 0-5 [facility] Comment on above: Order Comment: COLOR OF URINE MAY AFFECT DIPSTICK RESULTS.CLEAN CATCH Performed By: #### L 400.0001 ####[facility] [address] [place], [address] BACTERIA 0 SEEN Normal None Seen [facility] Comment on above: Order Comment: COLOR OF URINE MAY AFFECT DIPSTICK RESULTS.CLEAN CATCH Performed By: #### L 400.0001 ####[facility] [address] [place], [address] EPI,SQUAMOUS 0 SEEN Normal 0-5 [facility] Comment on above: Order Comment: COLOR OF URINE MAY AFFECT DIPSTICK RESULTS.CLEAN CATCH Performed By: #### L 400.0001 ####[facility] [address] [place], [address] Mucus Ql (Urine sed) 0 SEEN Normal [facility] Comment on above: Order Comment: COLOR OF URINE MAY AFFECT DIPSTICK RESULTS.CLEAN CATCH Performed By: #### L 400.0001 ####[facility] [address] [place], [address] Urine clarityOrdered By: Kae Loo on 07-07-2024 Clarity (U) Clear Clear [facility] Urine color determinationOrd ered By: Alicia Loo on 07-07-2024 Color (U) Lilia Yellow [facility] Urine glucose detectionOrder ed By: Alicia Loo on 07-07-2024 Glucose Ql (U) 50 mg/dl High Normal [facility] Urine leukocyte esterase det ection by dipstickOrdered By: Alicia Loo on 07-07-2024 Leukocyte esterase Test strip Ql (U) 25 /ul High Negative [facility] Urine pHOrdered By: Alicia minar on 07-07-2024 pH (U) 5.0 [pH] 5.0 - 8.0 [facility] Urine sediment bacteria coun t by microscopy (number/high power field)Ordered By: Alicia Loo on 07-07-2024 Bacteria LM.HPF (Urine sed) [#/Area] 0 /[HPF] None Seen [facility] Urine specific gravity measu rementOrdered By: [facility] Loo on 07-07-2024 Specific gravity (U) [Rel density] 1.015 1.002-1.030 [facility] Urine urobilinogen measureme ntOrdered By: [facility] L[facility] on 07-07-2024 Urobilinogen Ql (U) Normal mg/dl Normal [facility] White blood cell (WBC) count Ordered By: [facility] on 07-07-2024 WBC (Bld) [#/Vol] 9.0 10*3/uL 4.4-11.0 [facility] White blood cell countOrdere d By: Alicia Loo on 07-07-2024 White blood cell count 0-5 SEEN /hpf 0-5 [facility] Bedside Glucoseon 07-04-2024 FINGERSTICK GLU 114 mg/dL High 74-106 [facility] Comment on above: Result Comment: FANG VAZQUEZ OF PATIENT CARE PER NURSING PROTOCOL Performed By: #### L 501.080 ####[facility] [address] [place], [address] [facility] deOrdered By: Des Ruelas on 07-04-2024 Glucose [Mass/Vol] 114 mg/dL High 74-106 [facility] Absolute lymphocyte countOrd ered By: Eric Franklin on 07-03-2024 Lymphocytes Auto (Unsp spec) [#/Vol] 1.08 10*3/uL 0.83-4.51 [facility] Automated blood erythrocyte countOrdered By: Eric Franklin on 07-03-2024 RBC (Bld) [#/Vol] 2.75 10*6/uL Low 4.6-6.2 [facility] Comment on above: Performed By: #### L 500.4050, L100.0100 ####[facility] [address] [place], [address] Automated blood hematocrit ( percentage)Ordered By: Eric Franklin on 07-03-2024 Hematocrit (Bld) [Volume fraction] 25.7 % Low 40-54 [facility] Comment on above: Performed By: #### L 500.4050, L100.0100 ####[facility] [address] [place], [address] Automated lymphocyte count a s percentage of total leukocytesOrdered By: Eric Franklin on 07-03-2024 Lymphocytes/100 WBC Auto (Unsp spec) 12.6 % Low 19-41 [facility] Basophil percentageOrdered B y: Eric Franklin on 07-03-2024 Basophils/100 WBC (Bld) 0.2 % Normal 0-1 [facility] Comment on above: Performed By: #### L 500.4050, L100.0100 ####[facility] [address] [place], [address] Bilirubin, totalOrdered By: Eric Franklin on 07-03-2024 Bilirubin [Mass/Vol] 0.60 mg/dL Normal 0.20-1.00 [facility] Comment on above: Result Comment: For patients on eltrombopag therapy, use of Dimension [place] TBIL is not recommended. Performed By: #### L 500.4050, L100.0100 ####[facility] [address] [place], [address] CBC W/Diff, Automatedon 06-23 Absolute Lymph 1.08 X10 3/uL Normal 0.83-4.51 [facility] Comment on above: Performed By: #### L 500.4050, L100.0100 ####[facility] [address] [place], [address] Absolute Neut 6.2 X10 3/uL Normal 2.0-7.7 [facility] Comment on above: Performed By: #### L 500.4050, L100.0100 ####[facility] [address] [place], [address] IG% 0.700 Normal 0.0-0.9 [facility] Comment on above: Result Comment: IG% - Immature Granulocytes (promyelocytes, myelocytes andmetamyelocytes) > 1% indicates that a LEFT SHIFT is Present. Performed By: #### L 500.4050, L100.0100 ####[facility] [address] [place], [address] Lymphocytes/100 WBC (Bld) 12.6 % Low 19-41 [facility] Comment on above: Performed By: #### L 500.4050, L100.0100 ####[facility] [address] [place], [address] MCHC (RBC) [Mass/Vol] 31.5 g/dL Low 32-36 [facility] Comment on above: Performed By: #### L 500.4050, L100.0100 ####[facility] [address] [place], [address] Nucleated RBC (Bld) [#/Vol] 0 10*3/uL Normal 0-5 [facility] Comment on above: Performed By: #### L 500.4050, L100.0100 ####[facility] [address] [place], [address] Platelet mean volume (Bld) [Entitic vol] 11.1 fL Normal 6.2-12.0 [facility] Comment on above: Performed By: #### L 500.4050, L100.0100 ####[facility] [address] [place], [address] RDW SD 56.7 fl High 35.1-43.9 [facility] Comment on above: Performed By: #### L 500.4050, L100.0100 ####[facility] [address] [place], [address] Carbon dioxide measurementOr dered By: Eric Franklin on 07-03-2024 CO2 [Moles/Vol] 27.0 mmol/L Normal 21.0-32.0 [facility] Comment on above: Performed By: #### L 500.4050, L100.0100 ####[facility] [address] [place], [address] Chloride measurementOrdered By: Eric Franklin on 07-03-2024 Chloride [Moles/Vol] 96 mmol/L Low 98-107 [facility] Comment on above: Performed By: #### L 500.4050, L100.0100 ####[facility] [address] [place], [address] Comprehensive Metabolic Prof ilon 07-03-2024 Albumin/Globulin [Mass ratio] 0.5 {ratio} Low 0.9-2.4 [facility] Comment on above: Performed By: #### L 500.4050, L100.0100 ####[facility] [address] [place], [address] ALK P 63 U/L Normal 45-117 [facility] Comment on above: Performed By: #### L 500.4050, L100.0100 ####[facility] [address] [place], [address] AST [Catalytic activity/Vol] 26 U/L Normal 15-37 [facility] Comment on above: Result Comment: Mode rate Hemolysis, Result may be falsely increased. Performed By: #### L 500.4050, L100.0100 ####[facility] [address] [place], [address] BUN/CRE 12.2 RATIO Normal 10-20 [facility] Comment on above: Performed By: #### L 500.4050, L100.0100 ####[facility] [address] [place], [address] CA,Total 8.1 mg/dL Low 8.5-10.1 [facility] Comment on above: Performed By: #### L 500.4050, L100.0100 ####[facility] [address] [place], [address] ECRCL 20.19 ml/min Normal [facility] Comment on above: Performed By: #### L 500.4050, L100.0100 ####[facility] [address] [place], [address] EST GFR - AA 25 mL/min Low >60 [facility] Comment on above: Result Comment: Afri can [place] GFR Calc Performed By: #### L 500.4050, L100.0100 ####[facility] [address] [place], [address] GAP 11 Normal 5-15 [facility] Comment on above: Performed By: #### L 500.4050, L100.0100 ####[facility] [address] [place], [address] T PROT 7.1 g/dL Normal 6.4-8.2 [facility] Comment on above: Performed By: #### L 500.4050, L100.0100 ####[facility] [address] [place], [address] Emergency Department Summary on 07-03-2024 Emergency Department Summary Normal [facility] Eosinophil percentageOrdered By: Eric Franklin on 07-03-2024 Eosinophils/100 WBC (Bld) 0.3 % Normal 0-5 [facility] Comment on above: Performed By: #### L 500.4050, L100.0100 ####[facility] [address] [place], [address] Erythrocyte distribution wid th ratioOrdered By: Eric Franklin on 07-03-2024 Erythrocyte distribution width (RBC) [Ratio] 17.2 % High 11.6-14.6 [facility] Comment on above: Performed By: #### L 500.4050, L100.0100 ####[facility] [address] [place], [address] Erythrocyte distribution wid th standard deviationOrdered By: Eric Franklin on 07-03-2024 Erythrocyte distribution width (RBC) [Ratio] 56.7 fl High 35.1-43.9 [facility] Glomerular filtration rate ( GFR) estimationOrdered By: Eric Franklin on 07-03-2024 GFR/1.73 sq M.predicted among non-blacks MDRD (S/P/Bld) [Vol rate/Area] 21 mL/min/{1.73_m2} Low >60 [facility] Comment on above: Result Comment: Non- GFR Calc Performed By: #### L 500.4050, L100.0100 ####[facility] [address] [place], [address] Glucose measurementOrdered B y: Eric Franklin on 07-03-2024 Glucose [Mass/Vol] 161 mg/dL High 74-106 [facility] Comment on above: Result Comment: Fast ing Glucose result greater than or equal to 126 mg/dLsuggests DIABETES MELLITUS per A.D.A. criteria. Performed By: #### L 500.4050, L100.0100 ####[facility] [address] [place], [address] Hemoglobin measurementOrdere d By: Eric Franklin on 07-03-2024 Hemoglobin (Bld) [Mass/Vol] 8.1 g/dL Low 13.0-16.5 [facility] Comment on above: Performed By: #### L 500.4050, L100.0100 ####[facility] [address] [place], [address] Immature granulocytes/100 WB C Auto (Bld)Ordered By: Eric Franklin on 07-03-2024 Immature granulocytes/100 WBC (Bld) 0.700 % 0.0-0.9 [facility] MCV (mean corpuscular volume ) determinationOrdered By: Eric Franklin on 07-03-2024 MCV (RBC) [Entitic vol] 93.5 fL Normal 80-94 [facility] Comment on above: Performed By: #### L 500.4050, L100.0100 ####[facility] [address] [place], [address] Mean corpuscular hemoglobin (MCH) determinationOrdered By: Eric Franklin on 07-03-2024 MCH (RBC) [Entitic mass] 29.5 pg Normal 27.0-32.0 [facility] Comment on above: Performed By: #### L 500.4050, L100.0100 ####[facility] [address] [place], [address] Monocyte percentageOrdered B y: Eric Franklin on 07-03-2024 Monocytes/100 WBC (Bld) 14.5 % High 0-10 [facility] Comment on above: Performed By: #### L 500.4050, L100.0100 ####[facility] [address] [place], [address] Neutrophil percentageOrdered By: Eric Franklin on 07-03-2024 Neutrophils/100 WBC (Bld) 71.7 % High 47-70 [facility] Comment on above: Performed By: #### L 500.4050, L100.0100 ####[facility] [address] [place], [address] No Panel InformationOrdered By: Eric Franklin on 07-03-2024 26 U/L 15-37 [facility] Platelet countOrdered By: Ug jorge Franklin on 07-03-2024 Platelets (Bld) [#/Vol] 194 10*3/uL Normal 150-450 [facility] Comment on above: Performed By: #### L 500.4050, L100.0100 ####[facility] [address] [place], [address] Potassium measurementOrdered By: Eric Franklin on 07-03-2024 Potassium [Moles/Vol] 4.2 mmol/L Normal 3.5-5.1 [facility] Comment on above: Result Comment: Mode rate Hemolysis, Result may be falsely increased. Performed By: #### L 500.4050, L100.0100 ####[facility] [address] [place], [address] Serum globulin measurementOr dered By: Eric Franklin on 07-03-2024 Globulin (S) [Mass/Vol] 4.7 g/dL High 2.2-4.[address] [facility] Comment on above: Performed By: #### L 500.4050, L100.0100 ####[facility] [address] [place], [address] Serum or plasma alanine hawkins otransferase (ALT) measurementOrdered By: Eric Franklin on 07-03-2024 ALT [Catalytic activity/Vol] 13 U/L Low 16-61 [facility] Comment on above: Performed By: #### L 500.4050, L100.0100 ####[facility] [address] [place], [address] Serum or plasma albumin lilli urement (mass/volume)Ordered By: Eric Franklin on 07-03-2024 Albumin [Mass/Vol] 2.4 g/dL Low 3.2-5.0 [facility] Comment on above: Performed By: #### L 500.4050, L100.0100 ####[facility] [address] [place], [address] Serum or plasma alkaline penelope sphatase measurementOrdered By: Eric Franklin on 07-03-2024 ALP [Catalytic activity/Vol] 63 U/L 45-117 [facility] Serum or plasma calcium lilli urement (mass/volume)Ordered By: Eric Franklin on 07-03-2024 Calcium [Mass/Vol] 8.1 mg/dL Low 8.5-10.1 [facility] Serum or plasma creatinine m easurement (mass/volume)Ordered By: Eric Franklin on 07-03-2024 Creatinine [Mass/Vol] 3.04 mg/dL High 0.70-1.30 [facility] Comment on above: Result Comment: The validity of the calculated GFR GFRAA in patients over70 years has not been determined. Clinical correlation isessential. Performed By: #### L 500.4050, L100.0100 ####[facility] [address] [place], [address] Serum or plasma urea nitroge n measurement (mass/volume)Ordered By: Ericjorge Franklin on 07-03-2024 Urea nitrogen [Mass/Vol] 37 mg/dL High 7-18 [facility] Comment on above: Performed By: #### L 500.4050, L100.0100 ####[facility] [address] [place], [address] Sodium levelOrdered By: Eric Franklin on 07-03-2024 Sodium [Moles/Vol] 134 mmol/L Low 136-145 [facility] Comment on above: Performed By: #### L 500.4050, L100.0100 ####[facility] [address] [place], [address] Total proteinOrdered By: Ericjorge Franklin on 07-03-2024 Protein [Mass/Vol] 7.1 g/dL 6.4-8.2 [facility] White blood cell (WBC) count Ordered By: Ericjorge Franklin on 07-03-2024 WBC (Bld) [#/Vol] 8.6 10*3/uL Normal 4.4-11.0 [facility] Comment on above: Performed By: #### L 500.4050, L100.0100 ####[facility] [address] [place], [address] 12 Lead EKGon 07-02-[address] [facility] Absolute lymphocyte countOrd ered By: Nando Wiggins on 07-02-2024 Lymphocytes Auto (Unsp spec) [#/Vol] 1.88 10*3/uL 0.83-4.51 [facility] Automated lymphocyte count a s percentage of total leukocytesOrdered By: Brianwolf Rosalie on 07-02-2024 Lymphocytes/100 WBC Auto (Unsp spec) 20.3 % 19-41 [facility] Basic Metabolic Profile (BMP )on 07-02-2024 BUN/CRE 18.1 RATIO Normal 10-20 [facility] Comment on above: Performed By: #### L 500.2500 ####[facility] [address] [place], [address] CA,Total 9.1 mg/dL Normal 8.5-10.1 [facility] Comment on above: Performed By: #### L 500.2500 ####[facility] [address] [place], [address] Chloride [Moles/Vol] 98 mmol/L Normal 98-107 [facility] Comment on above: Performed By: #### L 500.2500 ####[facility] [address] [place], [address] CO2 [Moles/Vol] 26.0 mmol/L Normal 21.0-32.0 [facility] Comment on above: Performed By: #### L 500.2500 ####[facility] [address] [place], [address] Creatinine [Mass/Vol] 4.63 mg/dL High 0.70-1.30 [facility] Comment on above: Result Comment: The validity of the calculated GFR GFRAA in patients over70 years has not been determined. Clinical correlation isessential. Performed By: #### L 500.2500 ####[facility] [address] [place], [address] ECRCL 12.30 ml/min Normal [facility] Comment on above: Performed By: #### L 500.2500 ####[facility] [address] [place], [address] EST GFR - AA 16 mL/min Low >60 [facility] Comment on above: Result Comment: Afri can [place] GFR Calc Performed By: #### L 500.2500 ####[facility] [address] [place], [address] GAP 9 Normal 5-15 [facility] Comment on above: Performed By: #### L 500.2500 ####[facility] [address] [place], [address] GFR/1.73 sq M.predicted among non-blacks MDRD (S/P/Bld) [Vol rate/Area] 13 mL/min/{1.73_m2} Low >60 [facility] Comment on above: Result Comment: Non- GFR Calc Performed By: #### L 500.2500 ####[facility] [address] [place], [address] Glucose [Mass/Vol] 134 mg/dL High 74-106 [facility] Comment on above: Result Comment: Fast ing Glucose result greater than or equal to 126 mg/dLsuggests DIABETES MELLITUS per A.D.A. criteria. Performed By: #### L 500.2500 ####[facility] [address] [place], [address] Potassium [Moles/Vol] 4.3 mmol/L Normal 3.5-5.1 [facility] Comment on above: Performed By: #### L 500.2500 ####[facility] [address] [place], [address] Sodium [Moles/Vol] 133 mmol/L Low 136-145 [facility] Comment on above: Performed By: #### L 500.2500 ####[facility] [address] [place], [address] Urea nitrogen [Mass/Vol] 84 mg/dL High 7-18 [facility] Comment on above: Performed By: #### L 500.2500 ####[facility] [address] [place], [address] Basophil percentageOrdered B y: Nando Wiggins on 07-02-2024 Basophils/100 WBC (Bld) 0.3 % 0-1 [facility] Bedside Glucoseon 07-02-2024 FINGERSTICK GLU 230 mg/dL High 74-106 [facility] Comment on above: Result Comment: FANG VAZQUEZ OF PATIENT CARE PER NURSING PROTOCOL Performed By: #### L 501.080 ####[facility] [address] [place], [place], [address] Carbon dioxide measurementOr dered By: Fernando Oliveros on 07-02-2024 CO2 [Moles/Vol] 26.0 mmol/L 21.0-32.0 [facility] Carbon dioxide measurementOr dered By: Nando Wiggins on 07-02-2024 CO2 [Moles/Vol] 25.0 mmol/L 21.0-32.0 [facility] Chloride measurementOrdered By: Fernando Oliveros on 07-02-2024 Chloride [Moles/Vol] 98 mmol/L 98-107 [facility] Chloride measurementOrdered By: Nando Wiggins on 07-02-2024 Chloride [Moles/Vol] 96 mmol/L Low 98-107 [facility] Emergency Department Summary on 07-02-[address] [facility] Eosinophil percentageOrdered By: Nando Wiggins on 07-02-2024 Eosinophils/100 WBC (Bld) 3.0 % 0-5 [facility] Erythrocyte distribution wid th ratioOrdered By: Nando Wiggins on 07-02-2024 Erythrocyte distribution width (RBC) [Ratio] 17.2 % High 11.6-14.6 [facility] Erythrocyte distribution wid th standard deviationOrdered By: Nando Wiggins on 07-02-2024 Erythrocyte distribution width (RBC) [Ratio] 58.0 fl High 35.1-43.9 [facility] Glomerular filtration rate ( GFR) estimationOrdered By: Fernando Oliveros on 07-02-2024 GFR/1.73 sq M.predicted among non-blacks MDRD (S/P/Bld) [Vol rate/Area] 13 mL/min/{1.73_m2} Low >60 [facility] Glomerular filtration rate ( GFR) estimationOrdered By: Nando Wiggins on 07-02-2024 GFR/1.73 sq M.predicted among non-blacks MDRD (S/P/Bld) [Vol rate/Area] 8 mL/min/{1.73_m2} Low >60 [facility] Glucose measurementOrdered B y: Fernando Oliveros on 07-02-2024 Glucose [Mass/Vol] 134 mg/dL High 74-106 [facility] Glucose measurementOrdered B y: Nando Wiggins on 07-02-2024 Glucose [Mass/Vol] 134 mg/dL High 74-106 [facility] Glucose measurement at [facility] deOrdered By: Fernando Oliveros on 07-02-2024 Glucose [Mass/Vol] 230 mg/dL High 74-106 [facility] H AND P Exam - Hospitaliston 07-02-2024 H&P Exam - Hospitalist Normal [facility] Hematocrit Auto (Bld) [Volum e fraction]Ordered By: Nando Wiggins on 07-02-2024 Hematocrit (Bld) [Volume fraction] 25.7 % Low 40-54 [facility] Hemoglobin measurementOrdere d By: Nando Wiggins on 07-02-2024 Hemoglobin (Bld) [Mass/Vol] 8.0 g/dL Low 13.0-16.5 [facility] Immature granulocytes/100 WB C Auto (Bld)Ordered By: Nando Wiggins on 07-02-2024 Immature granulocytes/100 WBC (Bld) 0.500 % 0.0-0.9 [facility] MCV (mean corpuscular volume ) determinationOrdered By: Nando Wiggins on 07-02-2024 MCV (RBC) [Entitic vol] 96.3 fL High 80-94 [facility] Mean corpuscular hemoglobin (MCH) determinationOrdered By: Nando Wiggins on 07-02-2024 MCH (RBC) [Entitic mass] 30.0 pg 27.0-32.0 [facility] Monocyte percentageOrdered B y: Nando Wiggins on 07-02-2024 Monocytes/100 WBC (Bld) 11.7 % High 0-10 [facility] Neutrophil percentageOrdered By: Effili Wiggins on 07-02-2024 Neutrophils/100 WBC (Bld) 64.2 % 47-70 [facility] Platelet countOrdered By: Kathie biancalilian Wiggins on 07-02-2024 Platelets (Bld) [#/Vol] 198 10*3/uL 150-450 [facility] Potassium measurementOrdered By: Fernando Oliveros on 07-02-2024 Potassium [Moles/Vol] 4.3 mmol/L 3.5-5.1 [facility] Potassium measurementOrdered By: Nando Wiggins on 07-02-2024 Potassium [Moles/Vol] 5.9 mmol/L High 3.5-5.1 [facility] RBC Auto (Bld) [#/Vol]Ordere d By: Nando Wiggins on 07-02-2024 RBC (Bld) [#/Vol] 2.67 10*6/uL Low 4.6-6.2 [facility] Serum or plasma calcium lilli urement (mass/volume)Ordered By: Fernando Oliveros on 07-02-2024 Calcium [Mass/Vol] 9.1 mg/dL 8.5-10.1 [facility] Serum or plasma calcium lilli urement (mass/volume)Ordered By: Nando Wiggins on 07-02-2024 Calcium [Mass/Vol] 8.1 mg/dL Low 8.5-10.1 [facility] Serum or plasma creatinine m easurement (mass/volume)Ordered By: Fernando Oliveros on 07-02-2024 Creatinine [Mass/Vol] 4.63 mg/dL High 0.70-1.30 [facility] Serum or plasma creatinine m easurement (mass/volume)Ordered By: Nando Wiggins on 07-02-2024 Creatinine [Mass/Vol] 7.24 mg/dL High 0.70-1.30 [facility] Serum or plasma urea nitroge n measurement (mass/volume)Ordered By: Fernando Oliveros on 07-02-2024 Urea nitrogen [Mass/Vol] 84 mg/dL High 7-18 [facility] Serum or plasma urea nitroge n measurement (mass/volume)Ordered By: Nando Wiggins on 07-02-2024 Urea nitrogen [Mass/Vol] 126 mg/dL High 7-18 [facility] Sodium levelOrdered By: Fernando Oliveros on [...] (Unsp spec) [#/Vol] 2.51 10*3/uL 0.83-4.51 [facility] Automated lymphocyte count a s percentage of total leukocytesOrdered By: Nando Wiggins on 06-25-2024 Lymphocytes/100 WBC Auto (Unsp spec) 29.7 % 19-41 [facility] Basophil percentageOrdered B y: Nando Wiggins on 06-25-2024 Basophils/100 WBC (Bld) 0.6 % 0-1 [facility] Carbon dioxide measurementOr dered By: Nando Wiggins on 06-25-2024 CO2 [Moles/Vol] 27.0 mmol/L 21.0-32.0 [facility] Chloride measurementOrdered By: Nando Wiggins on 06-25-2024 Chloride [Moles/Vol] 96 mmol/L Low 98-107 [facility] Eosinophil percentageOrdered By: Nando Wiggins on 06-25-2024 Eosinophils/100 WBC (Bld) 3.5 % 0-5 [facility] Erythrocyte distribution wid th ratioOrdered By: Nando Wiggins on 06-25-2024 Erythrocyte distribution width (RBC) [Ratio] 15.1 % High 11.6-14.6 [facility] Erythrocyte distribution wid th standard deviationOrdered By: Nando Wiggins on 06-25-2024 Erythrocyte distribution width (RBC) [Ratio] 52.1 fl High 35.1-43.9 [facility] Glomerular filtration rate ( GFR) estimationOrdered By: Nando Wiggins on 06-25-2024 GFR/1.73 sq M.predicted among non-blacks MDRD (S/P/Bld) [Vol rate/Area] 11 mL/min/{1.73_m2} Low >60 [facility] Glucose measurementOrdered B y: Nando Wiggins on 06-25-2024 Glucose [Mass/Vol] 136 mg/dL High 74-106 [facility] Hematocrit Auto (Bld) [Volum e fraction]Ordered By: Nando Wiggins 06-25-2024 Hematocrit (Bld) [Volume fraction] 27.3 % Low 40-54 [facility] Hemoglobin measurementOrdere d By: Nando Wiggins on 06-25-2024 Hemoglobin (Bld) [Mass/Vol] 8.0 g/dL Low 13.0-16.5 [facility] Immature granulocytes/100 WB C Auto (Bld)Ordered By: Nando Wiggins on 06-25-2024 Immature granulocytes/100 WBC (Bld) 1.500 % High 0.0-0.9 [facility] MCV (mean corpuscular volume ) determinationOrdered By: Nando Wiggins on 06-25-2024 MCV (RBC) [Entitic vol] 95.5 fL High 80-94 [facility] Mean corpuscular hemoglobin (MCH) determinationOrdered By: Nando Wiggins 06-25-2024 MCH (RBC) [Entitic mass] 28.0 pg 27.0-32.0 [facility] Monocyte percentageOrdered B y: Nando Wiggins on 06-25-2024 Monocytes/100 WBC (Bld) 8.3 % 0-10 [facility] Neutrophil percentageOrdered By: Nando Meeklakshmidesiree on 06-25-2024 Neutrophils/100 WBC (Bld) 56.4 % 47-70 [facility] Platelet countOrdered By: Kathie fili Meeklakshmidesiree on 06-25-2024 Platelets (Bld) [#/Vol] 210 10*3/uL 150-450 [facility] Potassium measurementOrdered By: Kathiebiancasrinathwolf Edenlakshmidesiree on 06-25-2024 Potassium [Moles/Vol] 4.2 mmol/L 3.5-5.1 [facility] RBC Auto (Bld) [#/Vol]Ordere d By: Nando Meekcheko on 06-25-2024 RBC (Bld) [#/Vol] 2.86 10*6/uL Low 4.6-6.2 [facility] Serum or plasma calcium lilli urement (mass/volume)Ordered By: Nando Edenlakshmidesiree on 06-25-2024 Calcium [Mass/Vol] 9.0 mg/dL 8.5-10.1 [facility] Serum or plasma creatinine m easurement (mass/volume)Ordered By: Ktahiebiancasrinathwolf Edenlakshmidesiree on 06-25-2024 Creatinine [Mass/Vol] 5.23 mg/dL High 0.70-1.30 [facility] Serum or plasma urea nitroge n measurement (mass/volume)Ordered By: Nando Edenlakshmidseiree on 06-25-2024 Urea nitrogen [Mass/Vol] 72 mg/dL High 7-18 [facility] Sodium levelOrdered By: Deb lilian Meeklakshmidesiree on 06-25-2024 Sodium [Moles/Vol] 134 mmol/L Low 136-145 [facility] White blood cell (WBC) count Ordered By: Nando Edenlakshmidesiree on 06-25-2024 WBC (Bld) [#/Vol] 8.5 10*3/uL 4.4-11.0 [facility] MR/BMS.BVSon 06-20-2024 MR/BMS.BVS Normal [facility] Absolute lymphocyte countOrd ered By: Nando Wiggins on 06-18-2024 Lymphocytes Auto (Unsp spec) [#/Vol] 2.74 10*3/uL 0.83-4.51 [facility] Automated lymphocyte count a s percentage of total leukocytesOrdered By: Nando Wiggins on 06-18-2024 Lymphocytes/100 WBC Auto (Unsp spec) 31.0 % 19-41 [facility] Basophil percentageOrdered B y: Nando Wiggins on 06-18-2024 Basophils/100 WBC (Bld) 0.6 % 0-1 [facility] Carbon dioxide measurementOr dered By: Nando Wiggins on 06-18-2024 CO2 [Moles/Vol] 32.0 mmol/L 21.0-32.0 [facility] Chloride measurementOrdered By: Nando Wiggins on 06-18-2024 Chloride [Moles/Vol] 95 mmol/L Low 98-107 [facility] Eosinophil percentageOrdered By: Nando Wiggins on 06-18-2024 Eosinophils/100 WBC (Bld) 3.1 % 0-5 [facility] Erythrocyte distribution wid th ratioOrdered By: Nando Wiggins on 06-18-2024 Erythrocyte distribution width (RBC) [Ratio] 14.6 % 11.6-14.6 [facility] Erythrocyte distribution wid th standard deviationOrdered By: Nando Wiggisn on 06-18-2024 Erythrocyte distribution width (RBC) [Ratio] 50.6 fl High 35.1-43.9 [facility] Glomerular filtration rate ( GFR) estimationOrdered By: Nando Wiggins on 06-18-2024 GFR/1.73 sq M.predicted among non-blacks MDRD (S/P/Bld) [Vol rate/Area] 12 mL/min/{1.73_m2} Low >60 [facility] Glucose measurementOrdered B y: Nando Wiggins on 06-18-2024 Glucose [Mass/Vol] 81 mg/dL 74-106 [facility] Hematocrit Auto (Bld) [Volum e fraction]Ordered By: Nando Wigigns on 06-18-2024 Hematocrit (Bld) [Volume fraction] 28.6 % Low 40-54 [facility] Hemoglobin measurementOrdere d By: Nando Wiggins on 06-18-2024 Hemoglobin (Bld) [Mass/Vol] 8.4 g/dL Low 13.0-16.5 [facility] Immature granulocytes/100 WB C Auto (Bld)Ordered By: Nando Wiggins on 06-18-2024 Immature granulocytes/100 WBC (Bld) 0.300 % 0.0-0.9 [facility] MCV (mean corpuscular volume ) determinationOrdered By: Nando Wiggins on 06-18-2024 MCV (RBC) [Entitic vol] 95.0 fL High 80-94 [facility] Mean corpuscular hemoglobin (MCH) determinationOrdered By: Nando Wiggins on 06-18-2024 MCH (RBC) [Entitic mass] 27.9 pg 27.0-32.0 [facility] Monocyte percentageOrdered B y: Nando Wiggins on 06-18-2024 Monocytes/100 WBC (Bld) 8.3 % 0-10 [facility] Neutrophil percentageOrdered By: Nando Wiggins on 06-18-2024 Neutrophils/100 WBC (Bld) 56.7 % 47-70 [facility] Platelet countOrdered By: Kathie Wiggins on 06-18-2024 Platelets (Bld) [#/Vol] 301 10*3/uL 150-450 [facility] Potassium measurementOrdered By: Nando Wiggins on 06-18-2024 Potassium [Moles/Vol] 4.7 mmol/L 3.5-5.1 [facility] RBC Auto (Bld) [#/Vol]Ordere d By: Nando Wiggins on 06-18-2024 RBC (Bld) [#/Vol] 3.01 10*6/uL Low 4.6-6.2 [facility] Serum or plasma calcium lilli urement (mass/volume)Ordered By: Nando Wiggins on 06-18-2024 Calcium [Mass/Vol] 9.5 mg/dL 8.5-10.1 [facility] Serum or plasma creatinine m easurement (mass/volume)Ordered By: Nando Wiggins on 06-18-2024 Creatinine [Mass/Vol] 5.06 mg/dL High 0.70-1.30 [facility] Serum or plasma urea nitroge n measurement (mass/volume)Ordered By: Nando Wiggins on 06-18-2024 Urea nitrogen [Mass/Vol] 69 mg/dL High 7-18 [facility] Sodium levelOrdered By: Deb rosejeremie Rosalie on 06-18-2024 Sodium [Moles/Vol] 134 mmol/L Low 136-145 [facility] White blood cell (WBC) count Ordered By: Nando Wiggins on 06-18-2024 WBC (Bld) [#/Vol] 8.8 10*3/uL 4.4-11.0 [facility] Absolute lymphocyte countOrd ered By: Nando Wiggins on 06-11-2024 Lymphocytes Auto (Unsp spec) [#/Vol] 2.00 10*3/uL 0.83-4.51 [facility] Automated lymphocyte count a s percentage of total leukocytesOrdered By: Nando Wiggins on 06-11-2024 Lymphocytes/100 WBC Auto (Unsp spec) 25.4 % 19-41 [facility] Basophil percentageOrdered B y: Nando Wiggins on 06-11-2024 Basophils/100 WBC (Bld) 0.6 % 0-1 [facility] CNPTOUTREACHon 06-11-2024 CNPTOUTREACH Normal [facility] Carbon dioxide measurementOr dered By: Nando Wiggins on 06-11-2024 CO2 [Moles/Vol] 30.0 mmol/L 21.0-32.0 [facility] Chloride measurementOrdered By: Nando Wiggins on 06-11-2024 Chloride [Moles/Vol] 94 mmol/L Low 98-107 [facility] Culture, Anaerobic Any Sourc reed 06-11-2024 CUAN Right Forefoot No growth in [address] [facility] Comment on above: Performed By: #### M 100.3000, M600.2200, M300.2000, M100.4001, M300.3000, M100.2000, M600.2000 ####[facility] [address] [place], [address] Eosinophil percentageOrdered By: biancacincinnatiwolf Wiggins on 06-11-2024 Eosinophils/100 WBC (Bld) 2.7 % 0-5 [facility] Erythrocyte distribution wid th ratioOrdered By: [facility] Sat[facility] Healthwolf Wiggins on 06-11-2024 Erythrocyte distribution width (RBC) [Ratio] 14.6 % 11.6-14.6 [facility] Erythrocyte distribution wid th standard deviationOrdered By: biancacincinnatiwolf Wiggins on 06-11-2024 Erythrocyte distribution width (RBC) [Ratio] 50.4 fl High 35.1-43.9 [facility] Glomerular filtration rate ( GFR) estimationOrdered By: Nando Wiggins on 06-11-2024 GFR/1.73 sq M.predicted among non-blacks MDRD (S/P/Bld) [Vol rate/Area] 10 mL/min/{1.73_m2} Low >60 [facility] Glucose measurementOrdered B y: Nando Wiggins on 06-11-2024 Glucose [Mass/Vol] 222 mg/dL High 74-106 [facility] Hematocrit Auto (Bld) [Volum e fraction]Ordered By: Nando Wiggins on 06-11-2024 Hematocrit (Bld) [Volume fraction] 27.0 % Low 40-54 [facility] Hemoglobin measurementOrdere d By: biancacincinnatiwolf Wiggins on 06-11-2024 Hemoglobin (Bld) [Mass/Vol] 8.1 g/dL Low 13.0-16.5 [facility] Immature granulocytes/100 WB C Auto (Bld)Ordered By: Nando Wiggins on 06-11-2024 Immature granulocytes/100 WBC (Bld) 0.500 % 0.0-0.9 [facility] MCV (mean corpuscular volume ) determinationOrdered By: Nando Wiggins on 06-11-2024 MCV (RBC) [Entitic vol] 94.7 fL High 80-94 [facility] Mean corpuscular hemoglobin (MCH) determinationOrdered By: Nando Meekcheko on 06-11-2024 MCH (RBC) [Entitic mass] 28.4 pg 27.0-32.0 [facility] Monocyte percentageOrdered B y: Nando Meekcheko on 06-11-2024 Monocytes/100 WBC (Bld) 9.7 % 0-10 [facility] Neutrophil percentageOrdered By: Nando Meekcheko on 06-11-2024 Neutrophils/100 WBC (Bld) 61.1 % 47-70 [facility] Platelet countOrdered By: Kathie fili Meekcheko on 06-11-2024 Platelets (Bld) [#/Vol] 295 10*3/uL 150-450 [facility] Potassium measurementOrdered By: Kathiebiancalilian Meeklakshmidesiree on 06-11-2024 Potassium [Moles/Vol] 5.1 mmol/L 3.5-5.1 [facility] RBC Auto (Bld) [#/Vol]Ordere d By: Nando Meekcheko on 06-11-2024 RBC (Bld) [#/Vol] 2.85 10*6/uL Low 4.6-6.2 [facility] Serum or plasma calcium lilli urement (mass/volume)Ordered By: Deblilian Meeklakshmidesiree on 06-11-2024 Calcium [Mass/Vol] 9.1 mg/dL 8.5-10.1 [facility] Serum or plasma creatinine m easurement (mass/volume)Ordered By: Kathiebiancalilian Meeklakshmidesiree on 06-11-2024 Creatinine [Mass/Vol] 5.75 mg/dL High 0.70-1.30 [facility] Serum or plasma urea nitroge n measurement (mass/volume)Ordered By: Kathiefili Edenlakshmidesiree on 06-11-2024 Urea nitrogen [Mass/Vol] 69 mg/dL High 7-18 [facility] Sodium levelOrdered By: Deb lilian Rosalie on 06-11-2024 Sodium [Moles/Vol] 131 mmol/L Low 136-145 [facility] White blood cell (WBC) count Ordered By: Nando Wiggins on 06-11-2024 WBC (Bld) [#/Vol] 7.9 10*3/uL 4.4-11.0 [facility] Bilirubin directOrdered By: Nando Wiggins on 06-08-2024 Bilirubin.direct [Mass/Vol] 0.14 mg/dL 0.00-0.30 [facility] Bilirubin, totalOrdered By: Nando Wiggins on 06-08-2024 Bilirubin [Mass/Vol] 0.40 mg/dL 0.20-1.00 [facility] Hemoglobin A1c percentageOrd ered By: Nando Wiggins on 06-08-2024 HbA1c (Bld) [Mass fraction] 7.7 % High 3.8-5.6 [facility] No Panel InformationOrdered By: Nando Wiggins on 06-08-2024 14 U/L Low 15-37 [facility] Serum globulin measurementOr dered By: Nando Wiggins on 06-08-2024 Globulin (S) [Mass/Vol] 4.4 g/dL High 2.2-4.[address] [facility] Serum or plasma alanine hawkins otransferase (ALT) measurementOrdered By: Nando Wiggins on 06-08-2024 ALT [Catalytic activity/Vol] 7 U/L Low 16-61 [facility] Serum or plasma albumin lilli urement (mass/volume)Ordered By: Nando Wiggins on 06-08-2024 Albumin [Mass/Vol] 2.2 g/dL Low 3.2-5.0 [facility] Serum or plasma alkaline penelope sphatase measurementOrdered By: Nando Wiggins on 06-08-2024 ALP [Catalytic activity/Vol] 56 U/L 45-117 [facility] Total proteinOrdered By: Sinan Wiggins on 06-08-2024 Protein [Mass/Vol] 6.6 g/dL 6.4-8.2 [facility] Wound Cultureon 06-08-2024 WC Right Forefoot No growth aerobically. Normal [facility] Comment on above: Performed By: #### M 100.3000, M600.2200, M300.2000, M100.4001, M300.3000, M100.2000, M600.2000 ####[facility] [address] [place], [address] Acid fast bacillus (AFB) cul tureOrdered By: Des Ruelas on 06-06-2024 Mycobacterium sp identified Org specific cx Nom (Unsp spec) [facility] Anaerobic cultureOrdered By: Des Ruelas on 06-06-2024 Bacteria identified Anaer cx Nom (Unsp spec) No growth in 5 days. [facility] Bedside Glucoseon 06-06-2024 FINGERSTICK GLU 102 mg/dL Normal 74-106 [facility] Comment on above: Result Comment: FANG ROLANDOENT OF PATIENT CARE PER NURSING PROTOCOL Performed By: #### L 501.080 ####[facility] [address] [place], [address] Bilirubin directOrdered By: Nando Wiggins on 06-06-2024 Bilirubin.direct [Mass/Vol] 0.12 mg/dL 0.00-0.30 [facility] Bilirubin, totalOrdered By: Nando Wiggins on 06-06-2024 Bilirubin [Mass/Vol] 0.30 mg/dL 0.20-1.00 [facility] Decalcification bone/plaqueo n 06-06-2024 Decalcification bone/plaque Normal [facility] Comment on above: Performed By: #### P DEC ####[facility] [address] [place], [place], [address] Foot min 3 Viewson 5 Foot min [address] [facility] Fungus cultureOrdered By: Kana Ruelas on 06-06-2024 Fungus identified Cx Nom (Unsp spec) [facility] Fungus stainOrdered By: Juve Ruelas on 06-06-2024 Fungus identified Fungus stain Nom (Unsp spec) [facility] deOrdered By: Des Ruelas on 06-06-2024 Glucose [Mass/Vol] 102 mg/dL 74-106 [facility] Gram Stainon 06-06-2024 GS Right Forefoot Gram Stain 4+ Red Blood Cells 1+ White Blood Cells No organisms seen Normal [facility] Comment on above: Performed By: #### M 100.3000, M600.2200, M300.2000, M100.4001, M300.3000, M100.2000, M600.2000 ####[facility] [address] [place], [address] Gram stainOrdered By: Des Ruelas on 06-06-2024 Microscopic observation Gram stain Nom (Unsp spec) [facility] Hemoglobin A1c percentageOrd ered By: Nando Wiggins on 06-06-2024 HbA1c (Bld) [Mass fraction] 8.0 % High 3.8-5.6 [facility] MR/POSTOP.ANEon 06-06-2024 MR/POSTOP.ANE Normal [facility] MR/TYNTPDTB8oc 06-06-2024 MR/POSTOPAN2 Normal [facility] No Panel InformationOrdered By: Nando Wiggins on 06-06-2024 13 U/L Low 15-37 [facility] Operative Reporton Operative Report Normal [facility] Serum globulin measurementOr dered By: Nando Wiggins on 06-06-2024 Globulin (S) [Mass/Vol] 5.1 g/dL High 2.2-4.2 [facility] Serum or plasma alanine hawkins otransferase (ALT) measurementOrdered By: Nando Wiggins on 06-06-2024 ALT [Catalytic activity/Vol] 18 U/L 16-61 [facility] Serum or plasma albumin lilli urement (mass/volume)Ordered By: Nando Wiggins on 06-06-2024 Albumin [Mass/Vol] 2.4 g/dL Low 3.2-5.0 [facility] Serum or plasma alkaline penelope sphatase measurementOrdered By: Nando Wiggins on 06-06-2024 ALP [Catalytic activity/Vol] 68 U/L 45-117 [facility] Total proteinOrdered By: Sinan Wiggins on 06-06-2024 Protein [Mass/Vol] 7.5 g/dL 6.4-8.2 [facility] Wound Cultureon 06-05-[address] [facility] Comment on above: Performed By: #### M 100.2000, M100.3000, M100.4001 ####[facility] [address] [place], [address] MR/PAT.ANEon 06-04-2024 MR/PAT.ANE Normal [facility] CNPNon 05-30-2024 CNPN Normal [facility] Wound Ctr History AND Physic ariella 05-29-2024 Wound Ctr History & Physical Normal [facility] Operative Reporton Operative Report Normal [facility] Wound Ctr History AND Physic ariella 05-17-2024 Wound Ctr History & Physical Normal [facility] Basic Metabolic Profile (BMP )on 05-14-2024 BUN Normal 7-18 [facility] Comment on above: Result Comment: Canc elled via OM: Order cancelled - Patient discharged Performed By: #### L 500.2500 ####[facility] [address] [place], [address] Result Comment: Canc elled via OM: MD Ordered Performed By: #### L 100.0500, L500.2500 ####[facility] [address] [place], [address] BUN/CRE Normal 10-20 [facility] Comment on above: Result Comment: Canc elled via OM: Order cancelled - Patient discharged Performed By: #### L 500.2500 ####[facility] [address] [place], [address] Result Comment: Canc elled via OM: MD Ordered Performed By: #### L 100.0500, L500.2500 ####[facility] [address] [place], [address] CA,Total Normal 8.5-10.1 [facility] Comment on above: Result Comment: Canc elled via OM: Order cancelled - Patient discharged Performed By: #### L 500.2500 ####[facility] [address] [place], [address] Result Comment: Canc elled via OM: MD Ordered Performed By: #### L 100.0500, L500.2500 ####[facility] [address] [place], [address] CL Normal 98-107 [facility] Comment on above: Result Comment: Canc elled via OM: Order cancelled - Patient discharged Performed By: #### L 500.2500 ####[facility] [address] [place], [address] Result Comment: Canc elled via OM: MD Ordered Performed By: #### L 100.0500, L500.2500 ####[facility] [address] [place], [address] CO2 Normal 21.0-32.0 [facility] Comment on above: Result Comment: Canc elled via OM: Order cancelled - Patient discharged Performed By: #### L 500.2500 ####[facility] [address] [place], [address] Result Comment: Canc elled via OM: MD Ordered Performed By: #### L 100.0500, L500.2500 ####[facility] [address] [place], [address] CREAT,SERUM Normal 0.70-1.30 [facility] Comment on above: Result Comment: Canc elled via OM: Order cancelled - Patient discharged Performed By: #### L 500.2500 ####[facility] [address] [place], [address] Result Comment: Canc elled via OM: MD Ordered Performed By: #### L 100.0500, L500.2500 ####[place] [facility] [address] [place], [address] EST GFR Normal >60 [facility] Comment on above: Result Comment: Canc elled via OM: Order cancelled - Patient discharged Performed By: #### L 500.2500 ####[facility] [address] [place], [address] Result Comment: Canc elled via OM: MD Ordered Performed By: #### L 100.0500, L500.2500 ####[facility] [address] [place], [address] EST GFR - AA Normal >60 [facility] Comment on above: Result Comment: Canc elled via OM: Order cancelled - Patient discharged Performed By: #### L 500.2500 ####[facility] [address] [place], [address] Result Comment: Canc elled via OM: MD Ordered Performed By: #### L 100.0500, L500.2500 ####[facility] [address] [place], [address] GAP Normal 5-15 [facility] Comment on above: Result Comment: Canc elled via OM: Order cancelled - Patient discharged Performed By: #### L 500.2500 ####[facility] [address] [place], [address] Result Comment: Canc elled via OM: MD Ordered Performed By: #### L 100.0500, L500.2500 ####[facility] [address] [place], [address] GLU Normal 74-106 [facility] Comment on above: Result Comment: Canc elled via OM: Order cancelled - Patient discharged Performed By: #### L 500.2500 ####[facility] [address] [place], [address] Result Comment: Canc elled via OM: MD Ordered Performed By: #### L 100.0500, L500.2500 ####[facility] [address] [place], [address] Potassium Normal 3.5-5.1 [facility] Comment on above: Result Comment: Canc elled via OM: Order cancelled - Patient discharged Performed By: #### L 500.2500 ####[facility] [address] [place], [address] Result Comment: Canc elled via OM: MD Ordered Performed By: #### L 100.0500, L500.2500 ####[facility] [address] [place], [address] Basic Metabolic Profile (BMP) Normal 136-145 [facility] Comment on above: Result Comment: Canc elled via OM: Order cancelled - Patient discharged Performed By: #### L 500.2500 ####[facility] [address] [place], [address] Result Comment: Canc elled via OM: MD Ordered Performed By: #### L 100.0500, L500.2500 ####[facility] [address] [place], [address] CBC-Complete Blood Cnt No Di ffon 05-14-2024 HCT Normal 40-54 [facility] Comment on above: Result Comment: Canc elled via OM: Order cancelled - Patient discharged Performed By: #### L 100.0500 ####[facility] [address] [place], [address] HGB Normal 13.0-16.5 [facility] Comment on above: Result Comment: Canc elled via OM: Order cancelled - Patient discharged Performed By: #### L 100.0500 ####[facility] [address] [place], [address] MCH Normal 27.0-32.0 [facility] Comment on above: Result Comment: Canc elled via OM: Order cancelled - Patient discharged Performed By: #### L 100.0500 ####[facility] [address] [place], [address] MCHC Normal 32-36 [facility] Comment on above: Result Comment: Canc elled via OM: Order cancelled - Patient discharged Performed By: #### L 100.0500 ####[facility] [address] [place], [address] MCV Normal 80-94 [facility] Comment on above: Result Comment: Canc elled via OM: Order cancelled - Patient discharged Performed By: #### L 100.0500 ####[facility] [address] [place], [address] PLT Normal 150-450 [facility] Comment on above: Result Comment: Canc elled via OM: Order cancelled - Patient discharged Performed By: #### L 100.0500 ####[facility] [address] [place], [address] RBC Normal 4.6-6.2 [facility] Comment on above: Result Comment: Canc elled via OM: Order cancelled - Patient discharged Performed By: #### L 100.0500 ####[facility] [address] [place], [address] RDW CV Normal 11.6-14.6 [facility] Comment on above: Result Comment: Canc elled via OM: Order cancelled - Patient discharged Performed By: #### L 100.0500 ####[facility] [address] [place], [address] RDW SD Normal 35.1-43.9 [facility] Comment on above: Result Comment: Canc elled via OM: Order cancelled - Patient discharged Performed By: #### L 100.0500 ####[facility] [address], [address] WBC Normal 4.4-11.0 [facility] Comment on above: Result Comment: Canc elled via OM: Order cancelled - Patient discharged Performed By: #### L 100.0500 ####[facility] [address] [place], [address] HCT Normal 40-54 [facility] Comment on above: Result Comment: Canc elled via OM: MD Ordered Performed By: #### L 100.0500, L500.2500 ####[facility] [address] [place], [address] HGB Normal 13.0-16.5 [facility] Comment on above: Result Comment: Canc elled via OM: MD Ordered Performed By: #### L 100.0500, L500.2500 ####[facility] [address] [place], [address] MCH Normal 27.0-32.0 [facility] Comment on above: Result Comment: Canc elled via OM: MD Ordered Performed By: #### L 100.0500, L500.2500 ####[facility] [address] [place], [address] MCHC Normal 32-36 [facility] Comment on above: Result Comment: Canc elled via OM: MD Ordered Performed By: #### L 100.0500, L500.2500 ####[facility] [address] [place], [address] MCV Normal 80-94 [facility] Comment on above: Result Comment: Canc elled via OM: MD Ordered Performed By: #### L 100.0500, L500.2500 ####[facility] [address] [place], [address] PLT Normal 150-450 [facility] Comment on above: Result Comment: Canc elled via OM: MD Ordered Performed By: #### L 100.0500, L500.2500 ####[facility] [address] [place], [address] RBC Normal 4.6-6.2 [facility] Comment on above: Result Comment: Canc elled via OM: MD Ordered Performed By: #### L 100.0500, L500.2500 ####[facility] [address] [place], [address] RDW CV Normal 11.6-14.6 [facility] Comment on above: Result Comment: Canc elled via OM: MD Ordered Performed By: #### L 100.0500, L500.2500 ####[facility] [address] [place], [address] RDW SD Normal 35.1-43.9 [facility] Comment on above: Result Comment: Canc elled via OM: MD Ordered Performed By: #### L 100.0500, L500.2500 ####[facility] [address] [place], [address] WBC Normal 4.4-11.0 [facility] Comment on above: Result Comment: Canc elled via OM: MD Ordered Performed By: #### L 100.0500, L500.2500 ####[facility] [address] [place], [address] Basic Metabolic Profile (BMP )on 05-13-2024 BUN Normal 7-18 [facility] Comment on above: Result Comment: Canc elled via OM: MD Ordered Performed By: #### L 500.2500, L100.0500 ####[facility] [address] [place], [address] BUN/CRE Normal 10-20 [facility] Comment on above: Result Comment: Canc elled via OM: MD Ordered Performed By: #### L 500.2500, L100.0500 ####[facility] [address] [place], [address] CA,Total Normal 8.5-10.1 [facility] Comment on above: Result Comment: Canc elled via OM: MD Ordered Performed By: #### L 500.2500, L100.0500 ####[facility] [address] [place], [address] CL Normal 98-107 [facility] Comment on above: Result Comment: Canc elled via OM: MD Ordered Performed By: #### L 500.2500, L100.0500 ####[facility] [address] [place], [address] CO2 Normal 21.0-32.0 [facility] Comment on above: Result Comment: Canc elled via OM: MD Ordered Performed By: #### L 500.2500, L100.0500 ####[facility] [address] [place], [address] CREAT,SERUM Normal 0.70-1.30 [facility] Comment on above: Result Comment: Canc elled via OM: MD Ordered Performed By: #### L 500.2500, L100.0500 ####[facility] [address] [place], [address] EST GFR Normal >60 [facility] Comment on above: Result Comment: Canc elled via OM: MD Ordered Performed By: #### L 500.2500, L100.0500 ####[facility] [address] [place], [address] EST GFR - AA Normal >60 [facility] Comment on above: Result Comment: Canc elled via OM: MD Ordered Performed By: #### L 500.2500, L100.0500 ####[facility] [address] [place], [address] GAP Normal 5-15 [facility] Comment on above: Result Comment: Canc elled via OM: MD Ordered Performed By: #### L 500.2500, L100.0500 ####[facility] [address] [place], [address] GLU Normal 74-106 [facility] Comment on above: Result Comment: Canc elled via OM: MD Ordered Performed By: #### L 500.2500, L100.0500 ####[facility] [address] [place], [address] Potassium Normal 3.5-5.1 [facility] Comment on above: Result Comment: Canc elled via OM: MD Ordered Performed By: #### L 500.2500, L100.0500 ####[facility] [address] [place], [address] Basic Metabolic Profile (BMP) Normal 136-145 [facility] Comment on above: Result Comment: Canc elled via OM: MD Ordered Performed By: #### L 500.2500, L100.0500 ####[facility] [address] [place], [address] CBC-Complete Blood Cnt No Di ffon 05-13-2024 HCT Normal 40-54 [facility] Comment on above: Result Comment: Canc elled via OM: MD Ordered Performed By: #### L 500.2500, L100.0500 ####[facility] [address] [place], [address] HGB Normal 13.0-16.5 [facility] Comment on above: Result Comment: Canc elled via OM: MD Ordered Performed By: #### L 500.2500, L100.0500 ####[facility] [address] [place], [address] MCH Normal 27.0-32.0 [facility] Comment on above: Result Comment: Canc elled via OM: MD Ordered Performed By: #### L 500.2500, L100.0500 ####[facility] [address] [place], [address] MCHC Normal 32-36 [facility] Comment on above: Result Comment: Canc elled via OM: MD Ordered Performed By: #### L 500.2500, L100.0500 ####[facility] [address] [place], [address] MCV Normal 80-94 [facility] Comment on above: Result Comment: Canc elled via OM: MD Ordered Performed By: #### L 500.2500, L100.0500 ####[facility] [address] [place], [address] PLT Normal 150-450 [facility] Comment on above: Result Comment: Canc elled via OM: MD Ordered Performed By: #### L 500.2500, L100.0500 ####[facility] [address] [place], [address] RBC Normal 4.6-6.2 [facility] Comment on above: Result Comment: Canc elled via OM: MD Ordered Performed By: #### L 500.2500, L100.0500 ####[facility] [address] [place], [address] RDW CV Normal 11.6-14.6 [facility] Comment on above: Result Comment: Canc elled via OM: MD Ordered Performed By: #### L 500.2500, L100.0500 ####[facility] [address] [place], [address] RDW SD Normal 35.1-43.9 [facility] Comment on above: Result Comment: Canc elled via OM: MD Ordered Performed By: #### L 500.2500, L100.0500 ####[facility] [address] [place], [address] WBC Normal 4.4-11.0 [facility] Comment on above: Result Comment: Canc elled via OM: MD Ordered Performed By: #### L 500.2500, L100.0500 ####[facility] [address] [place], [address] Basic Metabolic Profile (BMP )on 05-12-2024 BUN Normal 7-18 [facility] Comment on above: Result Comment: Canc elled via OM: Order cancelled - Patient discharged Performed By: #### L 500.2500 ####[facility] [address] [place], [address] Result Comment: Canc elled via OM: MD Ordered Performed By: #### L 100.0500, L500.2500 ####[facility] [address] [place], [address] BUN/CRE Normal 10-20 [facility] Comment on above: Result Comment: Canc elled via OM: Order cancelled - Patient discharged Performed By: #### L 500.2500 ####[facility] [address] [place], [address] Result Comment: Canc elled via OM: MD Ordered Performed By: #### L 100.0500, L500.2500 ####[facility] [address] [place], [address] CA,Total Normal 8.5-10.1 [facility] Comment on above: Result Comment: Canc elled via OM: Order cancelled - Patient discharged Performed By: #### L 500.2500 ####[facility] [address] [place], [address] Result Comment: Canc elled via OM: MD Ordered Performed By: #### L 100.0500, L500.2500 ####[facility] [address] [place], [address] CL Normal 98-107 [facility] Comment on above: Result Comment: Canc elled via OM: Order cancelled - Patient discharged Performed By: #### L 500.2500 ####[facility] [address] [place], [address] Result Comment: Canc elled via OM: MD Ordered Performed By: #### L 100.0500, L500.2500 ####[facility] [address] [place], [address] CO2 Normal 21.0-32.0 [facility] Comment on above: Result Comment: Canc elled via OM: Order cancelled - Patient discharged Performed By: #### L 500.2500 ####[facility] [address] [place], [address] Result Comment: Canc elled via OM: MD Ordered Performed By: #### L 100.0500, L500.2500 ####[facility] [address] [place], [address] CREAT,SERUM Normal 0.70-1.30 [facility] Comment on above: Result Comment: Canc elled via OM: Order cancelled - Patient discharged Performed By: #### L 500.2500 ####[facility] [address] [place], [address] Result Comment: Canc elled via OM: MD Ordered Performed By: #### L 100.0500, L500.2500 ####[facility] [address] [place], [address] EST GFR Normal >60 [facility] Comment on above: Result Comment: Canc elled via OM: Order cancelled - Patient discharged Performed By: #### L 500.2500 ####[facility] [address] [place], [address] Result Comment: Canc elled via OM: MD Ordered Performed By: #### L 100.0500, L500.2500 ####[facility] [address] [place], [address] EST GFR - AA Normal >60 [facility] Comment on above: Result Comment: Canc elled via OM: Order cancelled - Patient discharged Performed By: #### L 500.2500 ####[facility] [address] [place], [address] Result Comment: Canc elled via OM: MD Ordered Performed By: #### L 100.0500, L500.2500 ####[facility] [address] [place], [address] GAP Normal 5-15 [facility] Comment on above: Result Comment: Canc elled via OM: Order cancelled - Patient discharged Performed By: #### L 500.2500 ####[facility] [address] [place], [address] Result Comment: Canc elled via OM: MD Ordered Performed By: #### L 100.0500, L500.2500 ####[facility] [address] [place], [address] GLU Normal 74-106 [facility] Comment on above: Result Comment: Canc elled via OM: Order cancelled - Patient discharged Performed By: #### L 500.2500 ####[facility] [address] [place], [address] Result Comment: Canc elled via OM: MD Ordered Performed By: #### L 100.0500, L500.2500 ####[facility] [address] [place], [address] Potassium Normal 3.5-5.1 [facility] Comment on above: Result Comment: Canc elled via OM: Order cancelled - Patient discharged Performed By: #### L 500.2500 ####[facility] [address] [place], [address] Result Comment: Canc elled via OM: MD Ordered Performed By: #### L 100.0500, L500.2500 ####[facility] [address] [place], [address] Basic Metabolic Profile (BMP) Normal 136-145 [facility] Comment on above: Result Comment: Canc elled via OM: Order cancelled - Patient discharged Performed By: #### L 500.2500 ####[facility] [address] [place], [address] Result Comment: Canc elled via OM: MD Ordered Performed By: #### L 100.0500, L500.2500 ####[facility] [address] [place], [address] CBC-Complete Blood Cnt No Di ffon 05-12-2024 HCT Normal 40-54 [facility] Comment on above: Result Comment: Canc elled via OM: Order cancelled - Patient discharged Performed By: #### L 100.0500 ####[facility] [address] [place], [address] HGB Normal 13.0-16.5 [facility] Comment on above: Result Comment: Canc elled via OM: Order cancelled - Patient discharged Performed By: #### L 100.0500 ####[facility] [address] [place], [address] MCH Normal 27.0-32.0 [facility] Comment on above: Result Comment: Canc elled via OM: Order cancelled - Patient discharged Performed By: #### L 100.0500 ####[facility] [address] [place], [address] MCHC Normal 32-36 [facility] Comment on above: Result Comment: Canc elled via OM: Order cancelled - Patient discharged Performed By: #### L 100.0500 ####[facility] [address] [place], [address] MCV Normal 80-94 [facility] Comment on above: Result Comment: Canc elled via OM: Order cancelled - Patient discharged Performed By: #### L 100.0500 ####[facility] [address] [place], [address] PLT Normal 150-450 [facility] Comment on above: Result Comment: Canc elled via OM: Order cancelled - Patient discharged Performed By: #### L 100.0500 ####[facility] [address] [place], [address] RBC Normal 4.6-6.2 [facility] Comment on above: Result Comment: Canc elled via OM: Order cancelled - Patient discharged Performed By: #### L 100.0500 ####[facility] [address] [place], [address] RDW CV Normal 11.6-14.6 [facility] Comment on above: Result Comment: Canc elled via OM: Order cancelled - Patient discharged Performed By: #### L 100.0500 ####[facility] [address] [place], [address] RDW SD Normal 35.1-43.9 [facility] Comment on above: Result Comment: Canc elled via OM: Order cancelled - Patient discharged Performed By: #### L 100.0500 ####[facility] [address] [place], [address] WBC Normal 4.4-11.0 [facility] Comment on above: Result Comment: Canc elled via OM: Order cancelled - Patient discharged Performed By: #### L 100.0500 ####[facility] [address] [place], [address] HCT Normal 40-54 [facility] Comment on above: Result Comment: Canc elled via OM: MD Ordered Performed By: #### L 100.0500, L500.2500 ####[facility] [address] [place], [address] HGB Normal 13.0-16.5 [facility] Comment on above: Result Comment: Canc elled via OM: MD Ordered Performed By: #### L 100.0500, L500.2500 ####[facility] [address] [place], [address] MCH Normal 27.0-32.0 [facility] Comment on above: Result Comment: Canc elled via OM: MD Ordered Performed By: #### L 100.0500, L500.2500 ####[facility] [address] [place], [address] MCHC Normal 32-36 [facility] Comment on above: Result Comment: Canc elled via OM: MD Ordered Performed By: #### L 100.0500, L500.2500 ####[facility] [address] [place], [address] MCV Normal 80-94 [facility] Comment on above: Result Comment: Canc elled via OM: MD Ordered Performed By: #### L 100.0500, L500.2500 ####[facility] [address] [place], [address] PLT Normal 150-450 [facility] Comment on above: Result Comment: Canc elled via OM: MD Ordered Performed By: #### L 100.0500, L500.2500 ####[facility] [address] [place], [address] RBC Normal 4.6-6.2 [facility] Comment on above: Result Comment: Canc elled via OM: MD Ordered Performed By: #### L 100.0500, L500.2500 ####[facility] [address] [place], [address] RDW CV Normal 11.6-14.6 [facility] Comment on above: Result Comment: Canc elled via OM: MD Ordered Performed By: #### L 100.0500, L500.2500 ####[facility] [address] [place], [address] RDW SD Normal 35.1-43.9 [facility] Comment on above: Result Comment: Canc elled via OM: MD Ordered Performed By: #### L 100.0500, L500.2500 ####[facility] [address] [place], [address] WBC Normal 4.4-11.0 [facility] Comment on above: Result Comment: Canc elled via OM: MD Ordered Performed By: #### L 100.0500, L500.2500 ####[facility] [address] [place], [address] Basic Metabolic Profile (BMP )on 05-11-2024 BUN Normal -18 [facility] Comment on above: Result Comment: Canc elled via OM: MD Ordered Performed By: #### L 500.2500, L100.0500 ####[facility] [address] [place], [address] BUN/CRE Normal 10-20 [facility] Comment on above: Result Comment: Canc elled via OM: MD Ordered Performed By: #### L 500.2500, L100.0500 ####[facility] [address] [place], [address] CA,Total Normal 8.5-10.1 [facility] Comment on above: Result Comment: Canc elled via OM: MD Ordered Performed By: #### L 500.2500, L100.0500 ####[facility] [address] [place], [address] CL Normal 98-107 [facility] Comment on above: Result Comment: Canc elled via OM: MD Ordered Performed By: #### L 500.2500, L100.0500 ####[facility] [address] [place], [address] CO2 Normal 21.0-32.0 [facility] Comment on above: Result Comment: Canc elled via OM: MD Ordered Performed By: #### L 500.2500, L100.0500 ####[facility] [address] [place], [address] CREAT,SERUM Normal 0.70-1.30 [facility] Comment on above: Result Comment: Canc elled via OM: MD Ordered Performed By: #### L 500.2500, L100.0500 ####[facility] [address] [place], [address] EST GFR Normal >60 [facility] Comment on above: Result Comment: Canc elled via OM: MD Ordered Performed By: #### L 500.2500, L100.0500 ####[facility] [address] [place], [address] EST GFR - AA Normal >60 [facility] Comment on above: Result Comment: Canc elled via OM: MD Ordered Performed By: #### L 500.2500, L100.0500 ####[facility] [address] [place], [address] GAP Normal 5-15 [facility] Comment on above: Result Comment: Canc elled via OM: MD Ordered Performed By: #### L 500.2500, L100.0500 ####[facility] [address] [place], [address] GLU Normal 74-106 [facility] Comment on above: Result Comment: Canc elled via OM: MD Ordered Performed By: #### L 500.2500, L100.0500 ####[facility] [address] [place], [address] Potassium Normal 3.5-5.1 [facility] Comment on above: Result Comment: Canc elled via OM: MD Ordered Performed By: #### L 500.2500, L100.0500 ####[facility] [address] [place], [address] Basic Metabolic Profile (BMP) Normal 136-145 [facility] Comment on above: Result Comment: Canc elled via OM: MD Ordered Performed By: #### L 500.2500, L100.0500 ####[facility] [address] [place], [address] CBC-Complete Blood Cnt No Di ffon 05-11-2024 HCT Normal 40-54 [facility] Comment on above: Result Comment: Canc elled via OM: MD Ordered Performed By: #### L 500.2500, L100.0500 ####[facility] [address] [place], [address] HGB Normal 13.0-16.5 [facility] Comment on above: Result Comment: Canc elled via OM: MD Ordered Performed By: #### L 500.2500, L100.0500 ####[facility] [address] [place], [address] MCH Normal 27.0-32.0 [facility] Comment on above: Result Comment: Canc elled via OM: MD Ordered Performed By: #### L 500.2500, L100.0500 ####[facility] [address] [place], [address] MCHC Normal 32-36 [facility] Comment on above: Result Comment: Canc elled via OM: MD Ordered Performed By: #### L 500.2500, L100.0500 ####[facility] [address] [place], [address] MCV Normal 80-94 [facility] Comment on above: Result Comment: Canc elled via OM: MD Ordered Performed By: #### L 500.2500, L100.0500 ####[facility] [address] [place], [address] PLT Normal 150-450 [facility] Comment on above: Result Comment: Canc elled via OM: MD Ordered Performed By: #### L 500.2500, L100.0500 ####[facility] [address] [place], [address] RBC Normal 4.6-6.2 [facility] Comment on above: Result Comment: Canc elled via OM: MD Ordered Performed By: #### L 500.2500, L100.0500 ####[facility] [address] [place], [address] RDW CV Normal 11.6-14.6 [facility] Comment on above: Result Comment: Canc elled via OM: MD Ordered Performed By: #### L 500.2500, L100.0500 ####[facility] [address] [place], [address] RDW SD Normal 35.1-43.9 [facility] Comment on above: Result Comment: Canc elled via OM: MD Ordered Performed By: #### L 500.2500, L100.0500 ####[facility] [address] [place], [address] WBC Normal 4.4-11.0 [facility] Comment on above: Result Comment: Canc elled via OM: MD Ordered Performed By: #### L 500.2500, L100.0500 ####[facility] [address] [place], [address] Basic Metabolic Profile (BMP )on 05-10-2024 BUN/CRE 9.4 RATIO Low 10-20 [facility] Comment on above: Performed By: #### L 500.2500, L100.0500 ####[facility] [address] [place], [address] CA,Total 8.8 mg/dL Normal 8.5-10.1 [facility] Comment on above: Performed By: #### L 500.2500, L100.0500 ####[facility] [address] [place], [address] Chloride [Moles/Vol] 102 mmol/L Normal 98-107 [facility] Comment on above: Performed By: #### L 500.2500, L100.0500 ####[facility] [address] [place], [address] CO2 [Moles/Vol] 25.0 mmol/L Normal 21.0-32.0 [facility] Comment on above: Performed By: #### L 500.2500, L100.0500 ####[facility] [address] [place], [address] Creatinine [Mass/Vol] 5.98 mg/dL High 0.70-1.30 [facility] Comment on above: Result Comment: The validity of the calculated GFR GFRAA in patients over70 years has not been determined. Clinical correlation isessential. Performed By: #### L 500.2500, L100.0500 ####[facility] [address] [place], [address] ECRCL 9.33 ml/min Normal [facility] Comment on above: Performed By: #### L 500.2500, L100.0500 ####[facility] [address] [place], [address] EST GFR - AA 12 mL/min Low >60 [facility] Comment on above: Result Comment: Afri can [place] GFR Calc Performed By: #### L 500.2500, L100.0500 ####[facility] [address] [place], [address] GAP 8 Normal 5-15 [facility] Comment on above: Performed By: #### L 500.2500, L100.0500 ####[facility] [address] [place], [address] GFR/1.73 sq M.predicted among non-blacks MDRD (S/P/Bld) [Vol rate/Area] 10 mL/min/{1.73_m2} Low >60 [facility] Comment on above: Result Comment: Non- GFR Calc Performed By: #### L 500.2500, L100.0500 ####[facility] [address] [place], [address] Glucose [Mass/Vol] 141 mg/dL High 74-106 [facility] Comment on above: Result Comment: Fast ing Glucose result greater than or equal to 126 mg/dLsuggests DIABETES MELLITUS per A.D.A. criteria. Performed By: #### L 500.2500, L100.0500 ####[facility] [address] [place], [address] Potassium [Moles/Vol] 4.2 mmol/L Normal 3.5-5.1 [facility] Comment on above: Performed By: #### L 500.2500, L100.0500 ####[facility] [address] [place], [address] Sodium [Moles/Vol] 135 mmol/L Low 136-145 [facility] Comment on above: Performed By: #### L 500.2500, L100.0500 ####[facility] [address] [place], [address] Urea nitrogen [Mass/Vol] 56 mg/dL High 7-18 [facility] Comment on above: Performed By: #### L 500.2500, L100.0500 ####[facility] [address] [place], [address] Bedside Glucoseon 05-10-2024 FINGERSTICK GLU 188 mg/dL High 74-106 [facility] Comment on above: Result Comment: FANG VAZQUEZ OF PATIENT CARE PER NURSING PROTOCOL Performed By: #### L 501.080 ####[facility] [address] [place], [address] FINGERSTICK GLU 165 mg/dL High 74-106 [facility] Comment on above: Result Comment: FANG GEMENT OF PATIENT CARE PER NURSING PROTOCOL Performed By: #### L 501.080 ####[facility] [address] [place], [address] FINGERSTICK GLU 115 mg/dL High 74-106 [facility] Comment on above: Result Comment: FANG GEMENT OF PATIENT CARE PER NURSING PROTOCOL Performed By: #### L 501.080 ####[facility] [address] [place], [address] CBC-Complete Blood Cnt No Di ffon 05-10-2024 Erythrocyte distribution width (RBC) [Ratio] 15.0 % High 11.6-14.6 [facility] Comment on above: Performed By: #### L 500.2500, L100.0500 ####[facility] [address] [place], [address] Hematocrit (Bld) [Volume fraction] 29.9 % Low 40-54 [facility] Comment on above: Performed By: #### L 500.2500, L100.0500 ####[facility] [address] [place], [address] Hemoglobin (Bld) [Mass/Vol] 9.2 g/dL Low 13.0-16.5 [facility] Comment on above: Performed By: #### L 500.2500, L100.0500 ####[facility] [address] [place], [address] MCH (RBC) [Entitic mass] 29.3 pg Normal 27.0-32.0 [facility] Comment on above: Performed By: #### L 500.2500, L100.0500 ####[facility] [address] [place], [address] MCHC (RBC) [Mass/Vol] 30.8 g/dL Low 32-36 [facility] Comment on above: Performed By: #### L 500.2500, L100.0500 ####[facility] [address] [place], [address] MCV (RBC) [Entitic vol] 95.2 fL High 80-94 [facility] Comment on above: Performed By: #### L 500.2500, L100.0500 ####[facility] [address] [place], [address] Platelet mean volume (Bld) [Entitic vol] 10.5 fL Normal 6.2-12.0 [facility] Comment on above: Performed By: #### L 500.2500, L100.0500 ####[facility] [address] [place], [address] Platelets (Bld) [#/Vol] 205 10*3/uL Normal 150-450 [facility] Comment on above: Performed By: #### L 500.2500, L100.0500 ####[facility] [address] [place], [address] RBC (Bld) [#/Vol] 3.14 10*6/uL Low 4.6-6.2 [facility] Comment on above: Performed By: #### L 500.2500, L100.0500 ####[facility] [address] [place], [address] RDW SD 51.8 fl High 35.1-43.9 [facility] Comment on above: Performed By: #### L 500.2500, L100.0500 ####[facility] [address] [place], [address] WBC (Bld) [#/Vol] 8.2 10*3/uL Normal 4.4-11.0 [facility] Comment on above: Performed By: #### L 500.2500, L100.0500 ####[facility] [address] [place], [address] Culture, Anaerobic Any Sourc reed 05-10-2024 CUAN COLLECTED IN OR RIGH T HALLUX AND 1ST METATARSAL No anaerobic bacteria isolated. Normal [facility] Comment on above: Performed By: #### M 100.2000, M100.3000, M100.4001 ####[facility] [address] [place], [address] Vancomycin, Random Levelon 1 07-11-2023 VANCO, RANDOM 21.6 ug/mL High 0.0-15.0 [facility] Comment on above: Order Comment: Comme nts: PLEASE DRAW PRE-DIALYSIS Result Comment: VANC OMYCIN STANDARD DRUG THERAPY: CRITICAL VALUE IS > 15.0 mg/LVANCOMYCIN HIGH INTENSITY THERAPY: CRITICAL VALUE IS > 20.0 mg/LPLEASE CONTACT PHARMACY SERVICES (#3307) FOR INTERPRETATIONOF RESULTS. THIS RESULT DOES NOT REPRESENT A PEAK OR TROUGHLEVEL FOR THIS DRUG. Performed By: #### L 501.8850 ####[facility] [address] [place], [address] Basic Metabolic Profile (BMP )on 05-09-2024 BUN/CRE 9.9 RATIO Low 10-20 [facility] Comment on above: Performed By: #### L 100.0500, L500.2500 ####[facility] [address] [place], [address] CA,Total 8.8 mg/dL Normal 8.5-10.1 [facility] Comment on above: Performed By: #### L 100.0500, L500.2500 ####[facility] [address] [place], [address] Chloride [Moles/Vol] 102 mmol/L Normal 98-107 [facility] Comment on above: Performed By: #### L 100.0500, L500.2500 ####[facility] [address] [place], [address] CO2 [Moles/Vol] 27.0 mmol/L Normal 21.0-32.0 [facility] Comment on above: Performed By: #### L 100.0500, L500.2500 ####[facility] [address] [place], [address] Creatinine [Mass/Vol] 4.74 mg/dL High 0.70-1.30 [facility] Comment on above: Result Comment: The validity of the calculated GFR GFRAA in patients over70 years has not been determined. Clinical correlation isessential. Performed By: #### L 100.0500, L500.2500 ####[facility] [address] [place], [address] ECRCL 11.77 ml/min Normal [facility] Comment on above: Performed By: #### L 100.0500, L500.2500 ####[facility] [address] [place], [address] EST GFR - AA 15 mL/min Low >60 [facility] Comment on above: Result Comment: Afri can [place] GFR Calc Performed By: #### L 100.0500, L500.2500 ####[facility] [address] [place], [address] GAP 6 Normal 5-15 [facility] Comment on above: Performed By: #### L 100.0500, L500.2500 ####[facility] [address] [place], [address] GFR/1.73 sq M.predicted among non-blacks MDRD (S/P/Bld) [Vol rate/Area] 13 mL/min/{1.73_m2} Low >60 [facility] Comment on above: Result Comment: Non- GFR Calc Performed By: #### L 100.0500, L500.2500 ####[facility] [address] [place], [address] Glucose [Mass/Vol] 105 mg/dL Normal 74-106 [facility] Comment on above: Result Comment: Fast ing Glucose result from 100 to 125 mg/dLsuggests IMPAIRED HOMEOSTASIS per A.D.A. criteria. Performed By: #### L 100.0500, L500.2500 ####[facility] [address] [place], [address] Potassium [Moles/Vol] 4.2 mmol/L Normal 3.5-5.1 [facility] Comment on above: Performed By: #### L 100.0500, L500.2500 ####[facility] [address] [place], [address] Sodium [Moles/Vol] 135 mmol/L Low 136-145 [facility] Comment on above: Performed By: #### L 100.0500, L500.2500 ####[facility] [address] [place], [address] Urea nitrogen [Mass/Vol] 47 mg/dL High 7-18 [facility] Comment on above: Performed By: #### L 100.0500, L500.2500 ####[facility] [address] [place], [address] Bedside Glucoseon 05-09-2024 FINGERSTICK GLU 176 mg/dL High 74-106 [facility] Comment on above: Result Comment: FANG GEMENT OF PATIENT CARE PER NURSING PROTOCOL Performed By: #### L 501.080 ####[facility] [address] [place], [address] FINGERSTICK GLU 264 mg/dL High 74-106 [facility] Comment on above: Result Comment: FANG GEMENT OF PATIENT CARE PER NURSING PROTOCOL Performed By: #### L 501.080 ####[facility] [address] [place], [address] FINGERSTICK GLU 90 mg/dL Normal 74-106 [facility] Comment on above: Result Comment: FANG GEMENT OF PATIENT CARE PER NURSING PROTOCOL Performed By: #### L 501.080 ####[facility] [address] [place], [address] CBC-Complete Blood Cnt No Di ffon 05-09-2024 Erythrocyte distribution width (RBC) [Ratio] 15.1 % High 11.6-14.6 [facility] Comment on above: Performed By: #### L 100.0500, L500.2500 ####[facility] [address] [place], [address] Hematocrit (Bld) [Volume fraction] 29.4 % Low 40-54 [facility] Comment on above: Performed By: #### L 100.0500, L500.2500 ####[facility] [address] [place], [address] Hemoglobin (Bld) [Mass/Vol] 8.7 g/dL Low 13.0-16.5 [facility] Comment on above: Performed By: #### L 100.0500, L500.2500 ####[facility] [address] [place], [address] MCH (RBC) [Entitic mass] 28.5 pg Normal 27.0-32.0 [facility] Comment on above: Performed By: #### L 100.0500, L500.2500 ####[facility] [address] [place], [address] MCHC (RBC) [Mass/Vol] 29.6 g/dL Low 32-36 [facility] Comment on above: Performed By: #### L 100.0500, L500.2500 ####[facility] [address] [place], [address] MCV (RBC) [Entitic vol] 96.4 fL High 80-94 [facility] Comment on above: Performed By: #### L 100.0500, L500.2500 ####[facility] [address] [place], [address] Platelet mean volume (Bld) [Entitic vol] 11.5 fL Normal 6.2-12.0 [facility] Comment on above: Performed By: #### L 100.0500, L500.2500 ####[facility] [address] [place], [address] Platelets (Bld) [#/Vol] 206 10*3/uL Normal 150-450 [facility] Comment on above: Performed By: #### L 100.0500, L500.2500 ####[facility] [address] [place], [address] RBC (Bld) [#/Vol] 3.05 10*6/uL Low 4.6-6.2 [facility] Comment on above: Performed By: #### L 100.0500, L500.2500 ####[facility] [address] [place], [address] RDW SD 53.7 fl High 35.1-43.9 [facility] Comment on above: Performed By: #### L 100.0500, L500.2500 ####[facility] [address] [place], [address] WBC (Bld) [#/Vol] 10.1 10*3/uL Normal 4.4-11.0 [facility] Comment on above: Performed By: #### L 100.0500, L500.2500 ####[facility] [address] [place], [address] Basic Metabolic Profile (BMP )on 05-08-2024 BUN/CRE 12.0 RATIO Normal 10-20 [facility] Comment on above: Performed By: #### L 500.2500, L100.0500 ####[facility] [address] [place], [address] CA,Total 8.5 mg/dL Normal 8.5-10.1 [facility] Comment on above: Performed By: #### L 500.2500, L100.0500 ####[facility] [address] [place], [address] Chloride [Moles/Vol] 99 mmol/L Normal 98-107 [facility] Comment on above: Performed By: #### L 500.2500, L100.0500 ####[facility] [address] [place], [address] CO2 [Moles/Vol] 27.0 mmol/L Normal 21.0-32.0 [facility] Comment on above: Performed By: #### L 500.2500, L100.0500 ####[facility] [address] [place], [address] Creatinine [Mass/Vol] 6.26 mg/dL High 0.70-1.30 [facility] Comment on above: Result Comment: The validity of the calculated GFR GFRAA in patients over70 years has not been determined. Clinical correlation isessential. Performed By: #### L 500.2500, L100.0500 ####[facility] [address] [place], [address] ECRCL 9.02 ml/min Normal [facility] Comment on above: Performed By: #### L 500.2500, L100.0500 ####[facility] [address] [place], [address] EST GFR - AA 11 mL/min Low >60 [facility] Comment on above: Result Comment: Afri can [place] GFR Calc Performed By: #### L 500.2500, L100.0500 ####[facility] [address] [place], [address] GAP 7 Normal 5-15 [facility] Comment on above: Performed By: #### L 500.2500, L100.0500 ####[facility] [address] [place], [address] GFR/1.73 sq M.predicted among non-blacks MDRD (S/P/Bld) [Vol rate/Area] 9 mL/min/{1.73_m2} Low >60 [facility] Comment on above: Result Comment: Non- GFR Calc Performed By: #### L 500.2500, L100.0500 ####[facility] [address] [place], [address] Glucose [Mass/Vol] 198 mg/dL High 74-106 [facility] Comment on above: Result Comment: Fast ing Glucose result greater than or equal to 126 mg/dLsuggests DIABETES MELLITUS per A.D.A. criteria. Performed By: #### L 500.2500, L100.0500 ####[facility] [address] [place], [address] Potassium [Moles/Vol] 4.9 mmol/L Normal 3.5-5.1 [facility] Comment on above: Performed By: #### L 500.2500, L100.0500 ####[facility] [address] [place], [address] Sodium [Moles/Vol] 133 mmol/L Low 136-145 [facility] Comment on above: Performed By: #### L 500.2500, L100.0500 ####[facility] [address] [place], [address] Urea nitrogen [Mass/Vol] 75 mg/dL High 7-18 [facility] Comment on above: Performed By: #### L 500.2500, L100.0500 ####[facility] [address] [place], [address] Bedside Glucoseon 05-08-2024 FINGERSTICK GLU 154 mg/dL High 74-106 [facility] Comment on above: Result Comment: FANG VAZQUEZ OF PATIENT CARE PER NURSING PROTOCOL Performed By: #### L 501.080 ####[facility] [address] [place], [address] FINGERSTICK GLU 212 mg/dL High 74-106 [facility] Comment on above: Result Comment: FANG GEMENT OF PATIENT CARE PER NURSING PROTOCOL Performed By: #### L 501.080 ####[facility] [address] [place], [address] FINGERSTICK GLU 194 mg/dL High 74-106 [facility] Comment on above: Result Comment: FANG GEMENT OF PATIENT CARE PER NURSING PROTOCOL Performed By: #### L 501.080 ####[facility] [address] [place], [address] CBC-Complete Blood Cnt No Di ffon 05-08-2024 Erythrocyte distribution width (RBC) [Ratio] 14.9 % High 11.6-14.6 [facility] Comment on above: Performed By: #### L 500.2500, L100.0500 ####[facility] [address] [place], [address] Hematocrit (Bld) [Volume fraction] 29.5 % Low 40-54 [facility] Comment on above: Performed By: #### L 500.2500, L100.0500 ####[facility] [address] [place], [address] Hemoglobin (Bld) [Mass/Vol] 8.8 g/dL Low 13.0-16.5 [facility] Comment on above: Performed By: #### L 500.2500, L100.0500 ####[facility] [address] [place], [address] MCH (RBC) [Entitic mass] 28.9 pg Normal 27.0-32.0 [facility] Comment on above: Performed By: #### L 500.2500, L100.0500 ####[facility] [address] [place], [address] MCHC (RBC) [Mass/Vol] 29.8 g/dL Low 32-36 [facility] Comment on above: Performed By: #### L 500.2500, L100.0500 ####[facility] [address] [place], [address] MCV (RBC) [Entitic vol] 97.0 fL High 80-94 [facility] Comment on above: Performed By: #### L 500.2500, L100.0500 ####[facility] [address] [place], [address] Platelet mean volume (Bld) [Entitic vol] 11.3 fL Normal 6.2-12.0 [facility] Comment on above: Performed By: #### L 500.2500, L100.0500 ####[facility] [address] [place], [address] Platelets (Bld) [#/Vol] 210 10*3/uL Normal 150-450 [facility] Comment on above: Performed By: #### L 500.2500, L100.0500 ####[facility] [address] [place], [address] RBC (Bld) [#/Vol] 3.04 10*6/uL Low 4.6-6.2 [facility] Comment on above: Performed By: #### L 500.2500, L100.0500 ####[facility] [address] [place], [address] RDW SD 52.8 fl High 35.1-43.9 [facility] Comment on above: Performed By: #### L 500.2500, L100.0500 ####[facility] [address] [place], [address] WBC (Bld) [#/Vol] 9.7 10*3/uL Normal 4.4-11.0 [facility] Comment on above: Performed By: #### L 500.2500, L100.0500 ####[facility] [address] [place], [address] Consultation - Infectious Dx on 05-08-2024 Consultation - Infectious Dx Normal [facility] Gram Stainon 05-08-2024 GS COLLECTED IN OR RIGH T HALLUX AND 1ST METATARSAL Gram Stain Rare White Blood Cells Rare Gram positive cocci No Epithelial cells Normal [facility] Comment on above: Performed By: #### M 100.2000, M100.3000, M100.4001 ####[facility] [address] [place], [address] Basic Metabolic Profile (BMP )on 05-07-2024 BUN/CRE 12.3 RATIO Normal 10-20 [facility] Comment on above: Performed By: #### L 500.2500, L100.0500 ####[facility] [address] [place], [address] CA,Total 8.7 mg/dL Normal 8.5-10.1 [facility] Comment on above: Performed By: #### L 500.2500, L100.0500 ####[facility] [address] [place], [address] Chloride [Moles/Vol] 100 mmol/L Normal 98-107 [facility] Comment on above: Performed By: #### L 500.2500, L100.0500 ####[facility] [address] [place], [address] CO2 [Moles/Vol] 28.0 mmol/L Normal 21.0-32.0 [facility] Comment on above: Performed By: #### L 500.2500, L100.0500 ####[facility] [address] [place], [address] Creatinine [Mass/Vol] 5.45 mg/dL High 0.70-1.30 [facility] Comment on above: Result Comment: The validity of the calculated GFR GFRAA in patients over70 years has not been determined. Clinical correlation isessential. Performed By: #### L 500.2500, L100.0500 ####[facility] [address] [place], [address] ECRCL 10.36 ml/min Normal [facility] Comment on above: Performed By: #### L 500.2500, L100.0500 ####[facility] [address] [place], [address] EST GFR - AA 13 mL/min Low >60 [facility] Comment on above: Result Comment: Afri can [place] GFR Calc Performed By: #### L 500.2500, L100.0500 ####[facility] [address] [place], [address] GAP 6 Normal 5-15 [facility] Comment on above: Performed By: #### L 500.2500, L100.0500 ####[facility] [address] [place], [address] GFR/1.73 sq M.predicted among non-blacks MDRD (S/P/Bld) [Vol rate/Area] 11 mL/min/{1.73_m2} Low >60 [facility] Comment on above: Result Comment: Non- GFR Calc Performed By: #### L 500.2500, L100.0500 ####[facility] [address] [place], [address] Glucose [Mass/Vol] 131 mg/dL High 74-106 [facility] Comment on above: Result Comment: Fast ing Glucose result greater than or equal to 126 mg/dLsuggests DIABETES MELLITUS per A.D.A. criteria. Performed By: #### L 500.2500, L100.0500 ####[facility] [address] [place], [address] Potassium [Moles/Vol] 4.6 mmol/L Normal 3.5-5.1 [facility] Comment on above: Performed By: #### L 500.2500, L100.0500 ####[facility] [address] [place], [address] Sodium [Moles/Vol] 134 mmol/L Low 136-145 [facility] Comment on above: Performed By: #### L 500.2500, L100.0500 ####[facility] [address] [place], [address] Urea nitrogen [Mass/Vol] 67 mg/dL High 7-18 [facility] Comment on above: Performed By: #### L 500.2500, L100.0500 ####[facility] [address] [place], [address] Bedside Glucoseon 05-07-2024 FINGERSTICK GLU 148 mg/dL High 74-106 [facility] Comment on above: Result Comment: FANG GEMENT OF PATIENT CARE PER NURSING PROTOCOL Performed By: #### L 501.080 ####[facility] [address] [place], [address] FINGERSTICK GLU 102 mg/dL Normal 74-106 [facility] Comment on above: Result Comment: FANG GEMENT OF PATIENT CARE PER NURSING PROTOCOL Performed By: #### L 501.080 ####[facility] [address] [place], [address] FINGERSTICK GLU 120 mg/dL High 74-106 [facility] Comment on above: Result Comment: FANG GEMENT OF PATIENT CARE PER NURSING PROTOCOL Performed By: #### L 501.080 ####[facility] [address] [place], [address] CBC-Complete Blood Cnt No Di ffon 05-07-2024 Erythrocyte distribution width (RBC) [Ratio] 15.0 % High 11.6-14.6 [facility] Comment on above: Performed By: #### L 500.2500, L100.0500 ####[facility] [address] [place], [address] Hematocrit (Bld) [Volume fraction] 29.8 % Low 40-54 [facility] Comment on above: Performed By: #### L 500.2500, L100.0500 ####[facility] [address] [place], [address] Hemoglobin (Bld) [Mass/Vol] 9.1 g/dL Low 13.0-16.5 [facility] Comment on above: Performed By: #### L 500.2500, L100.0500 ####[facility] [address] [place], [address] MCH (RBC) [Entitic mass] 29.6 pg Normal 27.0-32.0 [facility] Comment on above: Performed By: #### L 500.2500, L100.0500 ####[facility] [address] [place], [address] MCHC (RBC) [Mass/Vol] 30.5 g/dL Low 32-36 [facility] Comment on above: Performed By: #### L 500.2500, L100.0500 ####[facility] [address] [place], [address] MCV (RBC) [Entitic vol] 97.1 fL High 80-94 [facility] Comment on above: Performed By: #### L 500.2500, L100.0500 ####[facility] [address] [place], [address] Platelet mean volume (Bld) [Entitic vol] 11.0 fL Normal 6.2-12.0 [facility] Comment on above: Performed By: #### L 500.2500, L100.0500 ####[facility] [address] [place], [address] Platelets (Bld) [#/Vol] 223 10*3/uL Normal 150-450 [facility] Comment on above: Performed By: #### L 500.2500, L100.0500 ####[facility] [address] [place], [address] RBC (Bld) [#/Vol] 3.07 10*6/uL Low 4.6-6.2 [facility] Comment on above: Performed By: #### L 500.2500, L100.0500 ####[facility] [address] [place], [address] RDW SD 53.1 fl High 35.1-43.9 [facility] Comment on above: Performed By: #### L 500.2500, L100.0500 ####[facility] [address] [place], [address] WBC (Bld) [#/Vol] 8.1 10*3/uL Normal 4.4-11.0 [facility] Comment on above: Performed By: #### L 500.2500, L100.0500 ####[facility] [address] [place], [address] Decalcification bone/plaqueo n 05-07-2024 Decalcification bone/plaque Normal [facility] Comment on above: Performed By: #### P DEC ####[facility] [address] [place], [address] Foot 2 Viewson 05-07-[address] [facility] MR/POSTOP.ANEon 05-07-2024 MR/POSTOP.ANE Normal [facility] MR/OYUMQOHX0rc 05-07-2024 MR/POSTOPAN2 Normal [facility] Operative Reporton Operative Report Normal [facility] Basic Metabolic Profile (BMP )on 05-06-2024 BUN/CRE 11.3 RATIO Normal 10-20 [facility] Comment on above: Performed By: #### L 500.2500, L100.0500 ####[facility] [address] [place], [address] CA,Total 8.9 mg/dL Normal 8.5-10.1 [facility] Comment on above: Performed By: #### L 500.2500, L100.0500 ####[facility] [address] [place], [address] Chloride [Moles/Vol] 99 mmol/L Normal 98-107 [facility] Comment on above: Performed By: #### L 500.2500, L100.0500 ####[facility] [address] [place], [address] CO2 [Moles/Vol] 27.0 mmol/L Normal 21.0-32.0 [facility] Comment on above: Performed By: #### L 500.2500, L100.0500 ####[facility] [address] [place], [address] Creatinine [Mass/Vol] 4.26 mg/dL High 0.70-1.30 [facility] Comment on above: Result Comment: The validity of the calculated GFR GFRAA in patients over70 years has not been determined. Clinical correlation isessential. Performed By: #### L 500.2500, L100.0500 ####[facility] [address] [place], [place], [address] ECRCL 13.25 ml/min Normal [facility] Comment on above: Performed By: #### L 500.2500, L100.0500 ####[facility] [address] [place], [address] EST GFR - AA 17 mL/min Low >60 [facility] Comment on above: Result Comment: Afri can [place] GFR Calc Performed By: #### L 500.2500, L100.0500 ####[facility] [address] [place], [address] GAP 7 Normal 5-15 [facility] Comment on above: Performed By: #### L 500.2500, L100.0500 ####[facility] [address] [place], [address] GFR/1.73 sq M.predicted among non-blacks MDRD (S/P/Bld) [Vol rate/Area] 14 mL/min/{1.73_m2} Low >60 [facility] Comment on above: Result Comment: Non- GFR Calc Performed By: #### L 500.2500, L100.0500 ####[facility] [address] [place], [address] Glucose [Mass/Vol] 181 mg/dL High 74-106 [facility] Comment on above: Result Comment: Fast ing Glucose result greater than or equal to 126 mg/dLsuggests DIABETES MELLITUS per A.D.A. criteria. Performed By: #### L 500.2500, L100.0500 ####[facility] [address] [place], [address] Potassium [Moles/Vol] 4.3 mmol/L Normal 3.5-5.1 [facility] Comment on above: Performed By: #### L 500.2500, L100.0500 ####[facility] [address] [place], [address] Sodium [Moles/Vol] 133 mmol/L Low 136-145 [facility] Comment on above: Performed By: #### L 500.2500, L100.0500 ####[facility] [address] [place], [address] Urea nitrogen [Mass/Vol] 48 mg/dL High 7-18 [facility] Comment on above: Performed By: #### L 500.2500, L100.0500 ####[facility] [address] [place], [address] Bedside Glucoseon 05-06-2024 FINGERSTICK GLU 215 mg/dL High 74-106 [facility] Comment on above: Result Comment: FANG GEMENT OF PATIENT CARE PER NURSING PROTOCOL Performed By: #### L 501.080 ####[facility] [address] [place], [address] FINGERSTICK GLU 142 mg/dL High 74-106 [facility] Comment on above: Result Comment: FANG GEMENT OF PATIENT CARE PER NURSING PROTOCOL Performed By: #### L 501.080 ####[facility] [address] [place], [address] FINGERSTICK GLU 228 mg/dL High 74-106 [facility] Comment on above: Result Comment: FANG GEMENT OF PATIENT CARE PER NURSING PROTOCOL Performed By: #### L 501.080 ####[facility] [address] [place], [address] CBC-Complete Blood Cnt No Di ffon 05-06-2024 Erythrocyte distribution width (RBC) [Ratio] 15.1 % High 11.6-14.6 [facility] Comment on above: Performed By: #### L 500.2500, L100.0500 ####[facility] [address] [place], [address] Hematocrit (Bld) [Volume fraction] 32.3 % Low 40-54 [facility] Comment on above: Performed By: #### L 500.2500, L100.0500 ####[facility] [address] [place], [address] Hemoglobin (Bld) [Mass/Vol] 9.7 g/dL Low 13.0-16.5 [facility] Comment on above: Performed By: #### L 500.2500, L100.0500 ####[facility] [address] [place], [address] MCH (RBC) [Entitic mass] 29.2 pg Normal 27.0-32.0 [facility] Comment on above: Performed By: #### L 500.2500, L100.0500 ####[facility] [address] [place], [address] MCHC (RBC) [Mass/Vol] 30.0 g/dL Low 32-36 [facility] Comment on above: Performed By: #### L 500.2500, L100.0500 ####[facility] [address] [place], [address] MCV (RBC) [Entitic vol] 97.3 fL High 80-94 [facility] Comment on above: Performed By: #### L 500.2500, L100.0500 ####[facility] [address] [place], [address] Platelet mean volume (Bld) [Entitic vol] 11.1 fL Normal 6.2-12.0 [facility] Comment on above: Performed By: #### L 500.2500, L100.0500 ####[facility] [address] [place], [address] Platelets (Bld) [#/Vol] 238 10*3/uL Normal 150-450 [facility] Comment on above: Performed By: #### L 500.2500, L100.0500 ####[facility] [address] [place], [address] RBC (Bld) [#/Vol] 3.32 10*6/uL Low 4.6-6.2 [facility] Comment on above: Performed By: #### L 500.2500, L100.0500 ####[facility] [address] [place], [address] RDW SD 54.1 fl High 35.1-43.9 [facility] Comment on above: Performed By: #### L 500.2500, L100.0500 ####[facility] [address] [place], [address] WBC (Bld) [#/Vol] 8.5 10*3/uL Normal 4.4-11.0 [facility] Comment on above: Performed By: #### L 500.2500, L100.0500 ####[facility] [address] [place], [address] Basic Metabolic Profile (BMP )on 05-05-2024 BUN/CRE 9.2 RATIO Low 10-20 [facility] Comment on above: Performed By: #### L 100.0100, L500.2500 ####[facility] [address] [place], [address] CA,Total 8.9 mg/dL Normal 8.5-10.1 [facility] Comment on above: Performed By: #### L 100.0100, L500.2500 ####[facility] [address] [place], [address] Chloride [Moles/Vol] 95 mmol/L Low 98-107 [facility] Comment on above: Performed By: #### L 100.0100, L500.2500 ####[facility] [address] [place], [address] CO2 [Moles/Vol] 30.0 mmol/L Normal 21.0-32.0 [facility] Comment on above: Performed By: #### L 100.0100, L500.2500 ####[facility] [address] [place], [address] Creatinine [Mass/Vol] 5.32 mg/dL High 0.70-1.30 [facility] Comment on above: Result Comment: The validity of the calculated GFR GFRAA in patients over70 years has not been determined. Clinical correlation isessential. Performed By: #### L 100.0100, L500.2500 ####[facility] [address] [place], [address] ECRCL 10.63 ml/min Normal [facility] Comment on above: Performed By: #### L 100.0100, L500.2500 ####[facility] [address] [place], [address] EST GFR - AA 13 mL/min Low >60 [facility] Comment on above: Result Comment: Afri can [place] GFR Calc Performed By: #### L 100.0100, L500.2500 ####[facility] [address] [place], [address] GAP 11 Normal 5-15 [facility] Comment on above: Performed By: #### L 100.0100, L500.2500 ####[facility] [address] [place], [address] GFR/1.73 sq M.predicted among non-blacks MDRD (S/P/Bld) [Vol rate/Area] 11 mL/min/{1.73_m2} Low >60 [facility] Comment on above: Result Comment: Non- GFR Calc Performed By: #### L 100.0100, L500.2500 ####[facility] [address] [place], [address] Glucose [Mass/Vol] 111 mg/dL High 74-106 [facility] Comment on above: Result Comment: Fast ing Glucose result from 100 to 125 mg/dLsuggests IMPAIRED HOMEOSTASIS per A.D.A. criteria. Performed By: #### L 100.0100, L500.2500 ####[facility] [address] [place], [address] Potassium [Moles/Vol] 3.9 mmol/L Normal 3.5-5.1 [facility] Comment on above: Performed By: #### L 100.0100, L500.2500 ####[facility] [address] [place], [address] Sodium [Moles/Vol] 135 mmol/L Low 136-145 [facility] Comment on above: Performed By: #### L 100.0100, L500.2500 ####[facility] [address] [place], [address] Urea nitrogen [Mass/Vol] 49 mg/dL High 7-18 [facility] Comment on above: Performed By: #### L 100.0100, L500.2500 ####[facility] [address] [place], [address] Bedside Glucoseon 05-05-2024 FINGERSTICK GLU 155 mg/dL High 74-106 [facility] Comment on above: Result Comment: FANG GEMENT OF PATIENT CARE PER NURSING PROTOCOL Performed By: #### L 501.080 ####[facility] [address] [place], [address] FINGERSTICK GLU 210 mg/dL High 74-106 [facility] Comment on above: Result Comment: FANG GEMENT OF PATIENT CARE PER NURSING PROTOCOL Performed By: #### L 501.080 ####[facility] [address] [place], [address] FINGERSTICK GLU 202 mg/dL High 74-106 [facility] Comment on above: Result Comment: FANG GEMENT OF PATIENT CARE PER NURSING PROTOCOL Performed By: #### L 501.080 ####[facility] [address] [place], [address] FINGERSTICK GLU 136 mg/dL High 74-106 [facility] Comment on above: Result Comment: FANG GEMENT OF PATIENT CARE PER NURSING PROTOCOL Performed By: #### L 501.080 ####[facility] [address] [place], [address] FINGERSTICK GLU 171 mg/dL High 74-106 [facility] Comment on above: Result Comment: FANG GEMENT OF PATIENT CARE PER NURSING PROTOCOL Performed By: #### L 501.080 ####[facility] [address] [place], [address] CBC W/Diff, Automatedon 04-22 Absolute Lymph 2.35 X10 3/uL Normal 0.83-4.51 [facility] Comment on above: Performed By: #### L 100.0100, L500.2500 ####[facility] [address] [place], [address] Absolute Neut 6.8 X10 3/uL Normal 2.0-7.7 [facility] Comment on above: Performed By: #### L 100.0100, L500.2500 ####[facility] [address] [place], [address] Basophils/100 WBC (Bld) 0.8 % Normal 0-1 [facility] Comment on above: Performed By: #### L 100.0100, L500.2500 ####[facility] [address] [place], [address] Eosinophils/100 WBC (Bld) 3.1 % Normal 0-5 [facility] Comment on above: Performed By: #### L 100.0100, L500.2500 ####[facility] [address] [place], [address] Erythrocyte distribution width (RBC) [Ratio] 15.1 % High 11.6-14.6 [facility] Comment on above: Performed By: #### L 100.0100, L500.2500 ####[facility] [address] [place], [address] Hematocrit (Bld) [Volume fraction] 31.1 % Low 40-54 [facility] Comment on above: Performed By: #### L 100.0100, L500.2500 ####[facility] [address] [place], [address] Hemoglobin (Bld) [Mass/Vol] 9.4 g/dL Low 13.0-16.5 [facility] Comment on above: Performed By: #### L 100.0100, L500.2500 ####[facility] [address] [place], [address] IG% 0.600 Normal 0.0-0.9 [facility] Comment on above: Result Comment: IG% - Immature Granulocytes (promyelocytes, myelocytes andmetamyelocytes) > 1% indicates that a LEFT SHIFT is Present. Performed By: #### L 100.0100, L500.2500 ####[facility] [address] [place], [address] Lymphocytes/100 WBC (Bld) 22.1 % Normal 19-41 [facility] Comment on above: Performed By: #### L 100.0100, L500.2500 ####[facility] [address] [place], [address] MCH (RBC) [Entitic mass] 28.8 pg Normal 27.0-32.0 [facility] Comment on above: Performed By: #### L 100.0100, L500.2500 ####[facility] [address] [place], [address] MCHC (RBC) [Mass/Vol] 30.2 g/dL Low 32-36 [facility] Comment on above: Performed By: #### L 100.0100, L500.2500 ####[facility] [address] [place], [address] MCV (RBC) [Entitic vol] 95.4 fL High 80-94 [facility] Comment on above: Performed By: #### L 100.0100, L500.2500 ####[facility] [address] [place], [address] Monocytes/100 WBC (Bld) 9.2 % Normal 0-[address] [facility] Comment on above: Performed By: #### L 100.0100, L500.2500 ####[facility] [address] [place], [address] Neutrophils/100 WBC (Bld) 64.2 % Normal 47-70 [facility] Comment on above: Performed By: #### L 100.0100, L500.2500 ####[facility] [address] [place], [address] Nucleated RBC (Bld) [#/Vol] 0 10*3/uL Normal 0-5 [facility] Comment on above: Performed By: #### L 100.0100, L500.2500 ####[facility] [address] [place], [address] Platelet mean volume (Bld) [Entitic vol] 11.2 fL Normal 6.2-12.0 [facility] Comment on above: Performed By: #### L 100.0100, L500.2500 ####[facility] [address] [place], [address] Platelets (Bld) [#/Vol] 263 10*3/uL Normal 150-450 [facility] Comment on above: Performed By: #### L 100.0100, L500.2500 ####[facility] [address] [place], [address] RBC (Bld) [#/Vol] 3.26 10*6/uL Low 4.6-6.2 [facility] Comment on above: Performed By: #### L 100.0100, L500.2500 ####[facility] [address] [place], [address] RDW SD 52.6 fl High 35.1-43.9 [facility] Comment on above: Performed By: #### L 100.0100, L500.2500 ####[facility] [address] [place], [address] WBC (Bld) [#/Vol] 10.6 10*3/uL Normal 4.4-11.0 [facility] Comment on above: Performed By: #### L 100.0100, L500.2500 ####[facility] [address] [place], [address] Consultation - Nephrologyon 05-05-2024 Consultation - Nephrology Normal [facility] 12 Lead EKGon 05-04-[address] [facility] Ankle Brachial Indexon 05-04 Ankle Brachial Index Normal [facility] Basic Metabolic Profile (BMP )on 05-04-2024 BUN/CRE 6.8 RATIO Low 10-20 [facility] Comment on above: Performed By: #### L 100.0100, L500.2500, L501.6710, L101.9900 ####[facility] [address] [place], [address] CA,Total 9.4 mg/dL Normal 8.5-10.1 [facility] Comment on above: Performed By: #### L 100.0100, L500.2500, L501.6710, L101.9900 ####[facility] [address] [place], [address] Chloride [Moles/Vol] 94 mmol/L Low 98-107 [facility] Comment on above: Performed By: #### L 100.0100, L500.2500, L501.6710, L101.9900 ####[facility] [address] [place], [address] CO2 [Moles/Vol] 31.0 mmol/L Normal 21.0-32.0 [facility] Comment on above: Performed By: #### L 100.0100, L500.2500, L501.6710, L101.9900 ####[facility] [address] [place], [address] Creatinine [Mass/Vol] 4.58 mg/dL High 0.70-1.30 [facility] Comment on above: Result Comment: The validity of the calculated GFR GFRAA in patients over70 years has not been determined. Clinical correlation isessential. Performed By: #### L 100.0100, L500.2500, L501.6710, L101.9900 ####[facility] [address] [place], [address] ECRCL 13.00 ml/min Normal [facility] Comment on above: Performed By: #### L 100.0100, L500.2500, L501.6710, L101.9900 ####[facility] [address] [place], [address] EST GFR - AA 16 mL/min Low >60 [facility] Comment on above: Result Comment: Afri can [place] GFR Calc Performed By: #### L 100.0100, L500.2500, L501.6710, L101.9900 ####[facility] [address] [place], [address] GAP 7 Normal 5-15 [facility] Comment on above: Performed By: #### L 100.0100, L500.2500, L501.6710, L101.9900 ####[facility] [address] [place], [address] GFR/1.73 sq M.predicted among non-blacks MDRD (S/P/Bld) [Vol rate/Area] 13 mL/min/{1.73_m2} Low >60 [facility] Comment on above: Result Comment: Non- GFR Calc Performed By: #### L 100.0100, L500.2500, L501.6710, L101.9900 ####[facility] [address] [place], [address] Glucose [Mass/Vol] 297 mg/dL High 74-106 [facility] Comment on above: Result Comment: Gluc ose result greater than or equal to 200 mg/dLsuggests DIABETES MELLITUS per A.D.A. criteria. Performed By: #### L 100.0100, L500.2500, L501.6710, L101.9900 ####[facility] [address] [place], [address] Potassium [Moles/Vol] 3.7 mmol/L Normal 3.5-5.1 [facility] Comment on above: Performed By: #### L 100.0100, L500.2500, L501.6710, L101.9900 ####[facility] [address] [place], [address] Sodium [Moles/Vol] 133 mmol/L Low 136-145 [facility] Comment on above: Performed By: #### L 100.0100, L500.2500, L501.6710, L101.9900 ####[facility] [address] [place], [address] Urea nitrogen [Mass/Vol] 31 mg/dL High 7-18 [facility] Comment on above: Performed By: #### L 100.0100, L500.2500, L501.6710, L101.9900 ####[facility] [address] [place], [address] Bedside Glucoseon 05-04-2024 FINGERSTICK GLU 342 mg/dL High 74-106 [facility] Comment on above: Result Comment: FANG ROLANDOENT OF PATIENT CARE PER NURSING PROTOCOL Performed By: #### L 501.080 ####[facility] [address] [place], [address] CBC W/Diff, Automatedon 04-22 Absolute Lymph 2.08 X10 3/uL Normal 0.83-4.51 [facility] Comment on above: Performed By: #### L 100.0100, L500.2500, L501.6710, L101.9900 ####[facility] [address] [place], [address] Absolute Neut 5.8 X10 3/uL Normal 2.0-7.7 [facility] Comment on above: Performed By: #### L 100.0100, L500.2500, L501.6710, L101.9900 ####[facility] [address] [place], [address] Basophils/100 WBC (Bld) 1.0 % Normal 0-1 [facility] Comment on above: Performed By: #### L 100.0100, L500.2500, L501.6710, L101.9900 ####[facility] [address] [place], [address] Eosinophils/100 WBC (Bld) 2.4 % Normal 0-5 [facility] Comment on above: Performed By: #### L 100.0100, L500.2500, L501.6710, L101.9900 ####[facility] [address] [place], [address] Erythrocyte distribution width (RBC) [Ratio] 15.4 % High 11.6-14.6 [facility] Comment on above: Performed By: #### L 100.0100, L500.2500, L501.6710, L101.9900 ####[facility] [address] [place], [address] Hematocrit (Bld) [Volume fraction] 36.7 % Low 40-54 [facility] Comment on above: Performed By: #### L 100.0100, L500.2500, L501.6710, L101.9900 ####[facility] [address] [place], [address] Hemoglobin (Bld) [Mass/Vol] 11.3 g/dL Low 13.0-16.5 [facility] Comment on above: Performed By: #### L 100.0100, L500.2500, L501.6710, L101.9900 ####[facility] [address] [place], [address] IG% 0.800 Normal 0.0-0.9 [facility] Comment on above: Result Comment: IG% - Immature Granulocytes (promyelocytes, myelocytes andmetamyelocytes) > 1% indicates that a LEFT SHIFT is Present. Performed By: #### L 100.0100, L500.2500, L501.6710, L101.9900 ####[facility] [address] [place], [address] Lymphocytes/100 WBC (Bld) 22.5 % Normal 19-41 [facility] Comment on above: Performed By: #### L 100.0100, L500.2500, L501.6710, L101.9900 ####[facility] [address] [place], [address] MCH (RBC) [Entitic mass] 29.3 pg Normal 27.0-32.0 [facility] Comment on above: Performed By: #### L 100.0100, L500.2500, L501.6710, L101.9900 ####[facility] [address] [place], [address] MCHC (RBC) [Mass/Vol] 30.8 g/dL Low 32-36 [facility] Comment on above: Performed By: #### L 100.0100, L500.2500, L501.6710, L101.9900 ####[facility] [address] [place], [address] MCV (RBC) [Entitic vol] 95.1 fL High 80-94 [facility] Comment on above: Performed By: #### L 100.0100, L500.2500, L501.6710, L101.9900 ####[facility] [address] [place], [address] Monocytes/100 WBC (Bld) 10.2 % High 0-10 [facility] Comment on above: Performed By: #### L 100.0100, L500.2500, L501.6710, L101.9900 ####[facility] [address] [place], [address] Neutrophils/100 WBC (Bld) 63.1 % Normal 47-70 [facility] Comment on above: Performed By: #### L 100.0100, L500.2500, L501.6710, L101.9900 ####[facility] [address] [place], [address] Nucleated RBC (Bld) [#/Vol] 0 10*3/uL Normal 0-5 [facility] Comment on above: Performed By: #### L 100.0100, L500.2500, L501.6710, L101.9900 ####[facility] [address] [place], [address] Platelet mean volume (Bld) [Entitic vol] 11.4 fL Normal 6.2-12.0 [facility] Comment on above: Performed By: #### L 100.0100, L500.2500, L501.6710, L101.9900 ####[facility] [address] [place], [address] Platelets (Bld) [#/Vol] 288 10*3/uL Normal 150-450 [facility] Comment on above: Performed By: #### L 100.0100, L500.2500, L501.6710, L101.9900 ####[facility] [address] [place], [address] RBC (Bld) [#/Vol] 3.86 10*6/uL Low 4.6-6.2 [facility] Comment on above: Performed By: #### L 100.0100, L500.2500, L501.6710, L101.9900 ####[facility] [address] [place], [address] RDW SD 53.0 fl High 35.1-43.9 [facility] Comment on above: Performed By: #### L 100.0100, L500.2500, L501.6710, L101.9900 ####[facility] [address] [place], [address] WBC (Bld) [#/Vol] 9.2 10*3/uL Normal 4.4-11.0 [facility] Comment on above: Performed By: #### L 100.0100, L500.2500, L501.6710, L101.9900 ####[facility] [address] [place], [address] CRPon 05-04-2024 C-REACTIVE PROT 72.90 mg/L High 0.0-3.0 [facility] Comment on above: Result Comment: C-Re active Protein (CRP) provides useful information for thediagnosis, therapy and monitoring of inflammatory processesand associated diseases. For the evaluation of Relative Riskfor Cardiovascular Disease, a High Sensitivity CRP (HSCRP)should be ordered. Performed By: #### L 100.0100, L500.2500, L501.6710, L101.9900 ####[facility] [address] [place], [address] Consultation - Surgicalon Consultation - Surgical Normal [facility] Emergency Department Summary on 05-04-2024 [address] [facility] Erythrocyte Sed Rateon 05-04 SED RATE 81 mm/hr High 0-20 [facility] Comment on above: Performed By: #### L 100.0100, L500.2500, L501.6710, L101.9900 ####[facility] [address] [place], [address] Foot min 3 Viewson 4 Foot min [address] [facility] H AND P Exam - Hospitaliston 05-04-2024 H&P Exam - Hospitalist Normal [facility] US Art Duplex Unilat Lower E xton 05-04-2024 US Art Duplex Unilat Lower Ext Normal [facility] Basic Metabolic Profile (BMP )on 05-02-2024 BUN/CRE 6.9 RATIO Low 10-20 [facility] Comment on above: Order Comment: 107.2 Performed By: #### L 100.0500, L500.2500 ####[facility] [address] [place], [address] CA,Total 8.8 mg/dL Normal 8.5-10.1 [facility] Comment on above: Order Comment: 107.2 Performed By: #### L 100.0500, L500.2500 ####[facility] [address] [place], [address] Chloride [Moles/Vol] 96 mmol/L Low 98-107 [facility] Comment on above: Order Comment: 107.2 Performed By: #### L 100.0500, L500.2500 ####[facility] [address] [place], [address] CO2 [Moles/Vol] 30.0 mmol/L Normal 21.0-32.0 [facility] Comment on above: Order Comment: 107.2 Performed By: #### L 100.0500, L500.2500 ####[facility] [address] [place], [address] Creatinine [Mass/Vol] 4.34 mg/dL High 0.70-1.30 [facility] Comment on above: Order Comment: 107.2 Result Comment: The validity of the calculated GFR GFRAA in patients over70 years has not been determined. Clinical correlation isessential. Performed By: #### L 100.0500, L500.2500 ####[facility] [address] [place], [address] EST GFR - AA 17 mL/min Low >60 [facility] Comment on above: Order Comment: 107.2 Result Comment: Afri can [place] GFR Calc Performed By: #### L 100.0500, L500.2500 ####[facility] [address] [place], [address] GAP 7 Normal 5-15 [facility] Comment on above: Order Comment: 107.2 Performed By: #### L 100.0500, L500.2500 ####[facility] [address] [place], [address] GFR/1.73 sq M.predicted among non-blacks MDRD (S/P/Bld) [Vol rate/Area] 14 mL/min/{1.73_m2} Low >60 [facility] Comment on above: Order Comment: 107.2 Result Comment: Non- GFR Calc Performed By: #### L 100.0500, L500.2500 ####[facility] [address] [place], [address] Glucose [Mass/Vol] 138 mg/dL High 74-106 [facility] Comment on above: Order Comment: 107.2 Result Comment: Fast ing Glucose result greater than or equal to 126 mg/dLsuggests DIABETES MELLITUS per A.D.A. criteria. Performed By: #### L 100.0500, L500.2500 ####[facility] [address] [place], [address] Potassium [Moles/Vol] 3.6 mmol/L Normal 3.5-5.1 [facility] Comment on above: Order Comment: 107.2 Performed By: #### L 100.0500, L500.2500 ####[facility] [address] [place], [address] Sodium [Moles/Vol] 133 mmol/L Low 136-145 [facility] Comment on above: Order Comment: 107.2 Performed By: #### L 100.0500, L500.2500 ####[facility] [address] [place], [address] Urea nitrogen [Mass/Vol] 30 mg/dL High 7-18 [facility] Comment on above: Order Comment: 107.2 Performed By: #### L 100.0500, L500.2500 ####[facility] [address] [place], [address] CBC-Complete Blood Cnt No Di ffon 05-02-2024 Erythrocyte distribution width (RBC) [Ratio] 15.1 % High 11.6-14.6 [facility] Comment on above: Order Comment: 107.2 Performed By: #### L 100.0500, L500.2500 ####[facility] [address] [place], [address] Hematocrit (Bld) [Volume fraction] 29.9 % Low 40-54 [facility] Comment on above: Order Comment: 107.2 Performed By: #### L 100.0500, L500.2500 ####[facility] [address] [place], [address] Hemoglobin (Bld) [Mass/Vol] 9.6 g/dL Low 13.0-16.5 [facility] Comment on above: Order Comment: 107.2 Performed By: #### L 100.0500, L500.2500 ####[facility] [address] [place], [address] MCH (RBC) [Entitic mass] 30.2 pg Normal 27.0-32.0 [facility] Comment on above: Order Comment: 107.2 Performed By: #### L 100.0500, L500.2500 ####[facility] [address] [place], [address] MCHC (RBC) [Mass/Vol] 32.1 g/dL Normal 32-36 [facility] Comment on above: Order Comment: 107.2 Performed By: #### L 100.0500, L500.2500 ####[facility] [address] [place], [address] MCV (RBC) [Entitic vol] 94.0 fL Normal 80-94 [facility] Comment on above: Order Comment: 107.2 Performed By: #### L 100.0500, L500.2500 ####[facility] [address] [place], [address] Platelet mean volume (Bld) [Entitic vol] 10.9 fL Normal 6.2-12.0 [facility] Comment on above: Order Comment: 107.2 Performed By: #### L 100.0500, L500.2500 ####[facility] [address] [place], [address] Platelets (Bld) [#/Vol] 275 10*3/uL Normal 150-450 [facility] Comment on above: Order Comment: 107.2 Performed By: #### L 100.0500, L500.2500 ####[facility] [address] [place], [address] RBC (Bld) [#/Vol] 3.18 10*6/uL Low 4.6-6.2 [facility] Comment on above: Order Comment: 107.2 Performed By: #### L 100.0500, L500.2500 ####[facility] [address] [place], [address] RDW SD 52.3 fl High 35.1-43.9 [facility] Comment on above: Order Comment: 107.2 Performed By: #### L 100.0500, L500.2500 ####[facility] [address] [place], [address] WBC (Bld) [#/Vol] 8.9 10*3/uL Normal 4.4-11.0 [facility] Comment on above: Order Comment: 107.2 Performed By: #### L 100.0500, L500.2500 ####[facility] [address] [place], [address] Wound Cultureon 05-01-[address] [facility] Comment on above: Performed By: #### M 100.2000, M100.4001, M100.3000 ####[facility] [address] [place], [address] Bedside Glucoseon 04-24-2024 FINGERSTICK GLU 202 mg/dL High [address] [place] [address] Comment on above: Result Comment: FANG GEMENT OF PATIENT CARE PER NURSING PROTOCOL Performed By: #### L 501.080 ####[facility] [address] [place], [address] FINGERSTICK GLU 139 mg/dL High [address] [place] [address] Comment on above: Result Comment: FANG GEMENT OF PATIENT CARE PER NURSING PROTOCOL Performed By: #### L 501.080 ####[facility] [address] [place], [address] FINGERSTICK GLU 153 mg/dL High [address] [place] [address] Comment on above: Result Comment: FNAG GEMENT OF PATIENT CARE PER NURSING PROTOCOL Performed By: #### L 501.080 ####[facility] [address] [place], [address] FINGERSTICK GLU 250 mg/dL High [address] [place] [address] Comment on above: Result Comment: FANG GEMENT OF PATIENT CARE PER NURSING PROTOCOL Performed By: #### L 501.080 ####[facility] [address] [place], [address] Bedside Glucoseon 04-23-2024 FINGERSTICK GLU 311 mg/dL High [address] [place] [address] Comment on above: Result Comment: FANG GEMENT OF PATIENT CARE PER NURSING PROTOCOL Performed By: #### L 501.080 ####[facility] [address] [place], [address] FINGERSTICK GLU 252 mg/dL High 74-106 [facility] Comment on above: Result Comment: FANG GEMENT OF PATIENT CARE PER NURSING PROTOCOL Performed By: #### L 501.080 ####[facility] [address] [place], [address] FINGERSTICK GLU 173 mg/dL High 74-106 [facility] Comment on above: Result Comment: FANG GEMENT OF PATIENT CARE PER NURSING PROTOCOL Performed By: #### L 501.080 ####[facility] [address] [place], [address] CNPTOUTREACHon 04-23-2024 CNPTOUTREACH Normal [facility] Basic Metabolic Profile (BMP )on 04-22-2024 BUN/CRE 13.8 RATIO Normal 10-20 [facility] Comment on above: Performed By: #### L 100.0100, L500.2500 ####[facility] [address] [place], [address] CA,Total 8.5 mg/dL Normal 8.5-10.1 [facility] Comment on above: Performed By: #### L 100.0100, L500.2500 ####[facility] [address] [place], [address] Chloride [Moles/Vol] 100 mmol/L Normal 98-107 [facility] Comment on above: Performed By: #### L 100.0100, L500.2500 ####[facility] [address] [place], [address] CO2 [Moles/Vol] 25.0 mmol/L Normal 21.0-32.0 [facility] Comment on above: Performed By: #### L 100.0100, L500.2500 ####[facility] [address] [place], [address] Creatinine [Mass/Vol] 4.80 mg/dL High 0.70-1.30 [facility] Comment on above: Result Comment: The validity of the calculated GFR GFRAA in patients over70 years has not been determined. Clinical correlation isessential. Performed By: #### L 100.0100, L500.2500 ####[facility] [address] [place], [address] ECRCL 12.57 ml/min Normal [facility] Comment on above: Performed By: #### L 100.0100, L500.2500 ####[facility] [address] [place], [address] EST GFR - AA 15 mL/min Low >60 [facility] Comment on above: Result Comment: Afri can [place] GFR Calc Performed By: #### L 100.0100, L500.2500 ####[facility] [address] [place], [address] GAP 10 Normal 5-15 [facility] Comment on above: Performed By: #### L 100.0100, L500.2500 ####[facility] [address] [place], [address] GFR/1.73 sq M.predicted among non-blacks MDRD (S/P/Bld) [Vol rate/Area] 12 mL/min/{1.73_m2} Low >60 [facility] Comment on above: Result Comment: Non- GFR Calc Performed By: #### L 100.0100, L500.2500 ####[facility] [address] [place], [address] Glucose [Mass/Vol] 66 mg/dL Low 74-106 [facility] Comment on above: Performed By: #### L 100.0100, L500.2500 ####[facility] [address] [place], [address] Potassium [Moles/Vol] 4.1 mmol/L Normal 3.5-5.1 [facility] Comment on above: Performed By: #### L 100.0100, L500.2500 ####[facility] [address] [place], [address] Sodium [Moles/Vol] 135 mmol/L Low 136-145 [facility] Comment on above: Performed By: #### L 100.0100, L500.2500 ####[facility] [address] [place], [address] Urea nitrogen [Mass/Vol] 66 mg/dL High 7-18 [facility] Comment on above: Performed By: #### L 100.0100, L500.2500 ####[facility] [address] [place], [address] Bedside Glucoseon 04-22-2024 FINGERSTICK GLU 290 mg/dL High 74-106 [facility] Comment on above: Result Comment: FANG GEMENT OF PATIENT CARE PER NURSING PROTOCOL Performed By: #### L 501.080 ####[facility] [address] [place], [address] FINGERSTICK GLU 220 mg/dL High 74-106 [facility] Comment on above: Result Comment: FANG GEMENT OF PATIENT CARE PER NURSING PROTOCOL Performed By: #### L 501.080 ####[facility] [address] [place], [address] FINGERSTICK GLU 191 mg/dL High 74-106 [facility] Comment on above: Result Comment: FANG GEMENT OF PATIENT CARE PER NURSING PROTOCOL Performed By: #### L 501.080 ####[facility] [address] [place], [address] FINGERSTICK GLU 54 mg/dL Low 74-106 [facility] Comment on above: Result Comment: FANG GEMENT OF PATIENT CARE PER NURSING PROTOCOL Performed By: #### L 501.080 ####[facility] [address] [place], [address] FINGERSTICK GLU 72 mg/dL Low 74-106 [facility] Comment on above: Result Comment: FANG VAZQUEZ OF PATIENT CARE PER NURSING PROTOCOL Performed By: #### L 501.080 ####[facility] [address] [place], [address] CBC W/Diff, Automatedon 12-0 Absolute Lymph 2.51 X10 3/uL Normal 0.83-4.51 [facility] Comment on above: Performed By: #### L 100.0100, L500.2500 ####[facility] [address] [place], [address] Absolute Neut 11.4 X10 3/uL High 2.0-7.7 [facility] Comment on above: Performed By: #### L 100.0100, L500.2500 ####[facility] [address] [place], [address] Basophils/100 WBC (Bld) 0.5 % Normal 0-1 [facility] Comment on above: Performed By: #### L 100.0100, L500.2500 ####[facility] [address] [place], [address] Eosinophils/100 WBC (Bld) 2.2 % Normal 0-5 [facility] Comment on above: Performed By: #### L 100.0100, L500.2500 ####[facility] [address] [place], [address] Erythrocyte distribution width (RBC) [Ratio] 14.9 % High 11.6-14.6 [facility] Comment on above: Performed By: #### L 100.0100, L500.2500 ####[facility] [address] [place], [address] Hematocrit (Bld) [Volume fraction] 30.1 % Low 40-54 [facility] Comment on above: Performed By: #### L 100.0100, L500.2500 ####[facility] [address] [place], [address] Hemoglobin (Bld) [Mass/Vol] 9.4 g/dL Low 13.0-16.5 [facility] Comment on above: Performed By: #### L 100.0100, L500.2500 ####[facility] [address] [place], [address] IG% 1.700 High 0.0-0.9 [facility] Comment on above: Result Comment: IG% - Immature Granulocytes (promyelocytes, myelocytes andmetamyelocytes) > 1% indicates that a LEFT SHIFT is Present. Performed By: #### L 100.0100, L500.2500 ####[facility] [address] [place], [address] Lymphocytes/100 WBC (Bld) 15.8 % Low 19-41 [facility] Comment on above: Performed By: #### L 100.0100, L500.2500 ####[facility] [address] [place], [address] MCH (RBC) [Entitic mass] 30.1 pg Normal 27.0-32.0 [facility] Comment on above: Performed By: #### L 100.0100, L500.2500 ####[facility] [address] [place], [address] MCHC (RBC) [Mass/Vol] 31.2 g/dL Low 32-36 [facility] Comment on above: Performed By: #### L 100.0100, L500.2500 ####[facility] [address] [place], [address] MCV (RBC) [Entitic vol] 96.5 fL High 80-94 [facility] Comment on above: Performed By: #### L 100.0100, L500.2500 ####[facility] [address] [place], [address] Monocytes/100 WBC (Bld) 8.5 % Normal 0-10 [facility] Comment on above: Performed By: #### L 100.0100, L500.2500 ####[facility] [address] [place], [address] Neutrophils/100 WBC (Bld) 71.3 % High 47-70 [facility] Comment on above: Performed By: #### L 100.0100, L500.2500 ####[facility] [address] [place], [address] Nucleated RBC (Bld) [#/Vol] 0 10*3/uL Normal 0-5 [facility] Comment on above: Performed By: #### L 100.0100, L500.2500 ####[facility] [address] [place], [address] Platelet mean volume (Bld) [Entitic vol] 11.2 fL Normal 6.2-12.0 [facility] Comment on above: Performed By: #### L 100.0100, L500.2500 ####[facility] [address] [place], [address] Platelets (Bld) [#/Vol] 303 10*3/uL Normal 150-450 [facility] Comment on above: Performed By: #### L 100.0100, L500.2500 ####[facility] [address] [place], [address] RBC (Bld) [#/Vol] 3.12 10*6/uL Low 4.6-6.2 [facility] Comment on above: Performed By: #### L 100.0100, L500.2500 ####[facility] [address] [place], [address] RDW SD 52.3 fl High 35.1-43.9 [facility] Comment on above: Performed By: #### L 100.0100, L500.2500 ####[facility] [address] [place], [address] WBC (Bld) [#/Vol] 15.9 10*3/uL High 4.4-11.0 [facility] Comment on above: Performed By: #### L 100.0100, L500.2500 ####[facility] [address] [place], [address] Wound Cultureon 04-22-[address] [facility] Comment on above: Performed By: #### M 100.2000, M100.3000 ####[facility] [address] [place], [address] Basic Metabolic Profile (BMP )on 04-21-2024 BUN/CRE 14.8 RATIO Normal 10-20 [facility] Comment on above: Performed By: #### L 500.2500, L100.0100 ####[facility] [address] [place], [address] CA,Total 8.6 mg/dL Normal 8.5-10.1 [facility] Comment on above: Performed By: #### L 500.2500, L100.0100 ####[facility] [address] [place], [address] Chloride [Moles/Vol] 98 mmol/L Normal 98-107 [facility] Comment on above: Performed By: #### L 500.2500, L100.0100 ####[facility] [address] [place], [address] CO2 [Moles/Vol] 25.0 mmol/L Normal 21.0-32.0 [facility] Comment on above: Performed By: #### L 500.2500, L100.0100 ####[facility] [address] [place], [address] Creatinine [Mass/Vol] 6.13 mg/dL High 0.70-1.30 [facility] Comment on above: Result Comment: The validity of the calculated GFR GFRAA in patients over70 years has not been determined. Clinical correlation isessential. Performed By: #### L 500.2500, L100.0100 ####[facility] [address] [place], [address] ECRCL 10.02 ml/min Normal [facility] Comment on above: Performed By: #### L 500.2500, L100.0100 ####[facility] [address] [place], [address] EST GFR - AA 11 mL/min Low >60 [facility] Comment on above: Result Comment: Afri can [place] GFR Calc Performed By: #### L 500.2500, L100.0100 ####[facility] [address] [place], [address] GAP 9 Normal 5-15 [facility] Comment on above: Performed By: #### L 500.2500, L100.0100 ####[facility] [address] [place], [address] GFR/1.73 sq M.predicted among non-blacks MDRD (S/P/Bld) [Vol rate/Area] 9 mL/min/{1.73_m2} Low >60 [facility] Comment on above: Result Comment: Non- GFR Calc Performed By: #### L 500.2500, L100.0100 ####[facility] [address] [place], [address] Glucose [Mass/Vol] 123 mg/dL High 74-106 [facility] Comment on above: Result Comment: Fast ing Glucose result from 100 to 125 mg/dLsuggests IMPAIRED HOMEOSTASIS per A.D.A. criteria. Performed By: #### L 500.2500, L100.0100 ####[facility] [address] [place], [address] Potassium [Moles/Vol] 4.4 mmol/L Normal 3.5-5.1 [facility] Comment on above: Performed By: #### L 500.2500, L100.0100 ####[facility] [address] [place], [address] Sodium [Moles/Vol] 132 mmol/L Low 136-145 [facility] Comment on above: Performed By: #### L 500.2500, L100.0100 ####[facility] [address] [place], [address] Urea nitrogen [Mass/Vol] 91 mg/dL High 7-18 [facility] Comment on above: Performed By: #### L 500.2500, L100.0100 ####[facility] [address] [place], [address] Bedside Glucoseon 04-21-2024 FINGERSTICK GLU 158 mg/dL High 74-106 [facility] Comment on above: Result Comment: FANG GEMENT OF PATIENT CARE PER NURSING PROTOCOL Performed By: #### L 501.080 ####[facility] [address] [place], [address] FINGERSTICK GLU 173 mg/dL High 74-106 [facility] Comment on above: Result Comment: FANG GEMENT OF PATIENT CARE PER NURSING PROTOCOL Performed By: #### L 501.080 ####[facility] [address] [place], [address] FINGERSTICK GLU 312 mg/dL High 74-106 [facility] Comment on above: Result Comment: FANG GEMENT OF PATIENT CARE PER NURSING PROTOCOL Performed By: #### L 501.080 ####[facility] [address] [place], [address] FINGERSTICK GLU 103 mg/dL Normal 74-106 [facility] Comment on above: Result Comment: FANG GEMENT OF PATIENT CARE PER NURSING PROTOCOL Performed By: #### L 501.080 ####[facility] [address] [place], [address] CBC W/Diff, Automatedon 11-3 0-2024 Absolute Lymph 2.21 X10 3/uL Normal 0.83-4.51 [facility] Comment on above: Performed By: #### L 500.2500, L100.0100 ####[facility] [address] [place], [address] Absolute Neut 10.9 X10 3/uL High 2.0-7.7 [facility] Comment on above: Performed By: #### L 500.2500, L100.0100 ####[facility] [address] [place], [address] Basophils/100 WBC (Bld) 0.3 % Normal 0-1 [facility] Comment on above: Performed By: #### L 500.2500, L100.0100 ####[facility] [address] [place], [address] Eosinophils/100 WBC (Bld) 2.1 % Normal 0-5 [facility] Comment on above: Performed By: #### L 500.2500, L100.0100 ####[facility] [address] [place], [address] Erythrocyte distribution width (RBC) [Ratio] 14.9 % High 11.6-14.6 [facility] Comment on above: Performed By: #### L 500.2500, L100.0100 ####[facility] [address] [place], [address] Hematocrit (Bld) [Volume fraction] 31.2 % Low 40-54 [facility] Comment on above: Performed By: #### L 500.2500, L100.0100 ####[facility] [address] [place], [address] Hemoglobin (Bld) [Mass/Vol] 9.4 g/dL Low 13.0-16.5 [facility] Comment on above: Performed By: #### L 500.2500, L100.0100 ####[facility] [address] [place], [address] IG% 1.700 High 0.0-0.9 [facility] Comment on above: Result Comment: IG% - Immature Granulocytes (promyelocytes, myelocytes andmetamyelocytes) > 1% indicates that a LEFT SHIFT is Present. Performed By: #### L 500.2500, L100.0100 ####[facility] [address] [place], [address] Lymphocytes/100 WBC (Bld) 14.7 % Low 19-41 [facility] Comment on above: Performed By: #### L 500.2500, L100.0100 ####[facility] [address] [place], [address] MCH (RBC) [Entitic mass] 29.1 pg Normal 27.0-32.0 [facility] Comment on above: Performed By: #### L 500.2500, L100.0100 ####[facility] [address] [place], [address] MCHC (RBC) [Mass/Vol] 30.1 g/dL Low 32-36 [facility] Comment on above: Performed By: #### L 500.2500, L100.0100 ####[facility] [address] [place], [address] MCV (RBC) [Entitic vol] 96.6 fL High 80-94 [facility] Comment on above: Performed By: #### L 500.2500, L100.0100 ####[facility] [address] [place], [address] Monocytes/100 WBC (Bld) 8.6 % Normal 0-10 [facility] Comment on above: Performed By: #### L 500.2500, L100.0100 ####[facility] [address] [place], [address] Neutrophils/100 WBC (Bld) 72.6 % High 47-70 [facility] Comment on above: Performed By: #### L 500.2500, L100.0100 ####[facility] [address] [place], [address] Nucleated RBC (Bld) [#/Vol] 0 10*3/uL Normal 0-5 [facility] Comment on above: Performed By: #### L 500.2500, L100.0100 ####[facility] [address] [place], [address] Platelet mean volume (Bld) [Entitic vol] 10.8 fL Normal 6.2-12.0 [facility] Comment on above: Performed By: #### L 500.2500, L100.0100 ####[facility] [address] [place], [address] Platelets (Bld) [#/Vol] 285 10*3/uL Normal 150-450 [facility] Comment on above: Performed By: #### L 500.2500, L100.0100 ####[facility] [address] [place], [address] RBC (Bld) [#/Vol] 3.23 10*6/uL Low 4.6-6.2 [facility] Comment on above: Performed By: #### L 500.2500, L100.0100 ####[facility] [address] [place], [address] RDW SD 51.8 fl High 35.1-43.9 [facility] Comment on above: Performed By: #### L 500.2500, L100.0100 ####[facility] [address] [place], [address] WBC (Bld) [#/Vol] 15.0 10*3/uL High 4.4-11.0 [facility] Comment on above: Performed By: #### L 500.2500, L100.0100 ####[facility] [address] [place], [address] Culture, Anaerobic Any Sourc reed 04-21-[address] [facility] Comment on above: Performed By: #### M 100.2000, M100.4001, M100.3000 ####[facility] [address] [place], [address] Vancomycin, Random Levelon 1 06-21-2023 VANCO, RANDOM 15.6 ug/mL High 0.0-15.0 [facility] Comment on above: Result Comment: VANC OMYCIN STANDARD DRUG THERAPY: CRITICAL VALUE IS > 15.0 mg/LVANCOMYCIN HIGH INTENSITY THERAPY: CRITICAL VALUE IS > 20.0 mg/LPLEASE CONTACT PHARMACY SERVICES (#6158) FOR INTERPRETATIONOF RESULTS. THIS RESULT DOES NOT REPRESENT A PEAK OR TROUGHLEVEL FOR THIS DRUG. Performed By: #### L 501.8850 ####[facility] [address] [place], [address] Basic Metabolic Profile (BMP )on 04-20-2024 BUN/CRE 14.3 RATIO Normal 10-20 [facility] Comment on above: Performed By: #### L 500.2500, L100.0100 ####[facility] [address] [place], [address] CA,Total 8.6 mg/dL Normal 8.5-10.1 [facility] Comment on above: Performed By: #### L 500.2500, L100.0100 ####[facility] [address] [place], [address] Chloride [Moles/Vol] 98 mmol/L Normal 98-107 [facility] Comment on above: Performed By: #### L 500.2500, L100.0100 ####[facility] [address] [place], [address] CO2 [Moles/Vol] 23.0 mmol/L Normal 21.0-32.0 [facility] Comment on above: Performed By: #### L 500.2500, L100.0100 ####[facility] [address] [place], [address] Creatinine [Mass/Vol] 5.23 mg/dL High 0.70-1.30 [facility] Comment on above: Result Comment: The validity of the calculated GFR GFRAA in patients over70 years has not been determined. Clinical correlation isessential. Performed By: #### L 500.2500, L100.0100 ####[facility] [address] [place], [address] ECRCL 11.74 ml/min Normal [facility] Comment on above: Performed By: #### L 500.2500, L100.0100 ####[facility] [address] [place], [address] EST GFR - AA 14 mL/min Low >60 [facility] Comment on above: Result Comment: Afri can [place] GFR Calc Performed By: #### L 500.2500, L100.0100 ####[facility] [address] [place], [address] GAP 10 Normal 5-15 [facility] Comment on above: Performed By: #### L 500.2500, L100.0100 ####[facility] [address] [place], [address] GFR/1.73 sq M.predicted among non-blacks MDRD (S/P/Bld) [Vol rate/Area] 11 mL/min/{1.73_m2} Low >60 [facility] Comment on above: Result Comment: Non- GFR Calc Performed By: #### L 500.2500, L100.0100 ####[facility] [address] [place], [address] Glucose [Mass/Vol] 264 mg/dL High 74-106 [facility] Comment on above: Result Comment: Gluc ose result greater than or equal to 200 mg/dLsuggests DIABETES MELLITUS per A.D.A. criteria. Performed By: #### L 500.2500, L100.0100 ####[facility] [address] [place], [address] Potassium [Moles/Vol] 4.4 mmol/L Normal 3.5-5.1 [facility] Comment on above: Performed By: #### L 500.2500, L100.0100 ####[facility] [address] [place], [address] Sodium [Moles/Vol] 131 mmol/L Low 136-145 [facility] Comment on above: Performed By: #### L 500.2500, L100.0100 ####[facility] [address] [place], [address] Urea nitrogen [Mass/Vol] 75 mg/dL High 7-18 [facility] Comment on above: Performed By: #### L 500.2500, L100.0100 ####[facility] [address] [place], [address] Bedside Glucoseon 04-20-2024 FINGERSTICK GLU 317 mg/dL High 74-106 [facility] Comment on above: Result Comment: FANG GEMENT OF PATIENT CARE PER NURSING PROTOCOL Performed By: #### L 501.080 ####[facility] [address] [place], [address] FINGERSTICK GLU 306 mg/dL High 74-106 [facility] Comment on above: Result Comment: FANG GEMENT OF PATIENT CARE PER NURSING PROTOCOL Performed By: #### L 501.080 ####[facility] [address] [place], [address] FINGERSTICK GLU 254 mg/dL High 74-106 [facility] Comment on above: Result Comment: FANG VAZQUEZ OF PATIENT CARE PER NURSING PROTOCOL Performed By: #### L 501.080 ####[facility] [address] [place], [address] CBC W/Diff, Automatedon 11-2 Absolute Lymph 1.78 X10 3/uL Normal 0.83-4.51 [facility] Comment on above: Performed By: #### L 500.2500, L100.0100 ####[facility] [address] [place], [address] Absolute Neut 10.4 X10 3/uL High 2.0-7.7 [facility] Comment on above: Performed By: #### L 500.2500, L100.0100 ####[facility] [address] [place], [address] Basophils/100 WBC (Bld) 0.4 % Normal 0-1 [facility] Comment on above: Performed By: #### L 500.2500, L100.0100 ####[facility] [address] [place], [address] Eosinophils/100 WBC (Bld) 2.2 % Normal 0-5 [facility] Comment on above: Performed By: #### L 500.2500, L100.0100 ####[facility] [address] [place], [address] Erythrocyte distribution width (RBC) [Ratio] 14.8 % High 11.6-14.6 [facility] Comment on above: Performed By: #### L 500.2500, L100.0100 ####[facility] [address] [place], [address] Hematocrit (Bld) [Volume fraction] 30.3 % Low 40-54 [facility] Comment on above: Performed By: #### L 500.2500, L100.0100 ####[facility] [address] [place], [address] Hemoglobin (Bld) [Mass/Vol] 9.6 g/dL Low 13.0-16.5 [facility] Comment on above: Performed By: #### L 500.2500, L100.0100 ####[facility] [address] [place], [address] IG% 1.400 High 0.0-0.9 [facility] Comment on above: Result Comment: IG% - Immature Granulocytes (promyelocytes, myelocytes andmetamyelocytes) > 1% indicates that a LEFT SHIFT is Present. Performed By: #### L 500.2500, L100.0100 ####[facility] [address] [place], [address] Lymphocytes/100 WBC (Bld) 12.8 % Low 19-41 [facility] Comment on above: Performed By: #### L 500.2500, L100.0100 ####[facility] [address] [place], [address] MCH (RBC) [Entitic mass] 30.3 pg Normal 27.0-32.0 [facility] Comment on above: Performed By: #### L 500.2500, L100.0100 ####[facility] [address] [place], [address] MCHC (RBC) [Mass/Vol] 31.7 g/dL Low 32-36 [facility] Comment on above: Performed By: #### L 500.2500, L100.0100 ####[facility] [address] [place], [address] MCV (RBC) [Entitic vol] 95.6 fL High 80-94 [facility] Comment on above: Performed By: #### L 500.2500, L100.0100 ####[facility] [address] [place], [address] Monocytes/100 WBC (Bld) 8.5 % Normal 0-10 [facility] Comment on above: Performed By: #### L 500.2500, L100.0100 ####[facility] [address] [place], [address] Neutrophils/100 WBC (Bld) 74.7 % High 47-70 [facility] Comment on above: Performed By: #### L 500.2500, L100.0100 ####[facility] [address] [place], [address] Nucleated RBC (Bld) [#/Vol] 0 10*3/uL Normal 0-5 [facility] Comment on above: Performed By: #### L 500.2500, L100.0100 ####[facility] [address] [place], [address] Platelet mean volume (Bld) [Entitic vol] 11.2 fL Normal 6.2-12.0 [facility] Comment on above: Performed By: #### L 500.2500, L100.0100 ####[facility] [address] [place], [address] Platelets (Bld) [#/Vol] 260 10*3/uL Normal 150-450 [facility] Comment on above: Performed By: #### L 500.2500, L100.0100 ####[facility] [address] [place], [address] RBC (Bld) [#/Vol] 3.17 10*6/uL Low 4.6-6.2 [facility] Comment on above: Performed By: #### L 500.2500, L100.0100 ####[facility] [address] [place], [address] RDW SD 51.7 fl High 35.1-43.9 [facility] Comment on above: Performed By: #### L 500.2500, L100.0100 ####[facility] [address] [place], [address] WBC (Bld) [#/Vol] 13.9 10*3/uL High 4.4-11.0 [facility] Comment on above: Performed By: #### L 500.2500, L100.0100 ####[facility] [address] [place], [address] Basic Metabolic Profile (BMP )on 04-19-2024 BUN/CRE 14.5 RATIO Normal 10-20 [facility] Comment on above: Performed By: #### L 100.0100, L500.2500 ####[facility] [address] [place], [address] CA,Total 8.4 mg/dL Low 8.5-10.1 [facility] Comment on above: Performed By: #### L 100.0100, L500.2500 ####[facility] [address] [place], [address] Chloride [Moles/Vol] 100 mmol/L Normal 98-107 [facility] Comment on above: Performed By: #### L 100.0100, L500.2500 ####[facility] [address] [place], [address] CO2 [Moles/Vol] 25.0 mmol/L Normal 21.0-32.0 [facility] Comment on above: Performed By: #### L 100.0100, L500.2500 ####[facility] [address] [place], [address] Creatinine [Mass/Vol] 4.13 mg/dL High 0.70-1.30 [facility] Comment on above: Result Comment: The validity of the calculated GFR GFRAA in patients over70 years has not been determined. Clinical correlation isessential. Performed By: #### L 100.0100, L500.2500 ####[facility] [address] [place], [address] ECRCL 14.76 ml/min Normal [facility] Comment on above: Performed By: #### L 100.0100, L500.2500 ####[facility] [address] [place], [address] EST GFR - AA 18 mL/min Low >60 [facility] Comment on above: Result Comment: Afri can [place] GFR Calc Performed By: #### L 100.0100, L500.2500 ####[facility] [address] [place], [address] GAP 9 Normal 5-15 [facility] Comment on above: Performed By: #### L 100.0100, L500.2500 ####[facility] [address] [place], [address] GFR/1.73 sq M.predicted among non-blacks MDRD (S/P/Bld) [Vol rate/Area] 15 mL/min/{1.73_m2} Low >60 [facility] Comment on above: Result Comment: Non- GFR Calc Performed By: #### L 100.0100, L500.2500 ####[facility] [address] [place], [address] Glucose [Mass/Vol] 272 mg/dL High 74-106 [facility] Comment on above: Result Comment: Gluc ose result greater than or equal to 200 mg/dLsuggests DIABETES MELLITUS per A.D.A. criteria. Performed By: #### L 100.0100, L500.2500 ####[facility] [address] [place], [address] Potassium [Moles/Vol] 4.2 mmol/L Normal 3.5-5.1 [facility] Comment on above: Performed By: #### L 100.0100, L500.2500 ####[facility] [address] [place], [address] Sodium [Moles/Vol] 134 mmol/L Low 136-145 [facility] Comment on above: Performed By: #### L 100.0100, L500.2500 ####[facility] [address] [place], [address] Urea nitrogen [Mass/Vol] 60 mg/dL High 7-18 [facility] Comment on above: Performed By: #### L 100.0100, L500.2500 ####[facility] [address] [place], [address] Bedside Glucoseon 04-19-2024 FINGERSTICK GLU 261 mg/dL High 74-106 [facility] Comment on above: Result Comment: FANG GEMENT OF PATIENT CARE PER NURSING PROTOCOL Performed By: #### L 501.080 ####[facility] [address] [place], [address] FINGERSTICK GLU 292 mg/dL High 74-106 [facility] Comment on above: Result Comment: FANG GEMENT OF PATIENT CARE PER NURSING PROTOCOL Performed By: #### L 501.080 ####[facility] [address] [place], [address] FINGERSTICK GLU 298 mg/dL High 74-106 [facility] Comment on above: Result Comment: FANG GEMENT OF PATIENT CARE PER NURSING PROTOCOL Performed By: #### L 501.080 ####[facility] [address] [place], [address] FINGERSTICK GLU 247 mg/dL High 74-106 [facility] Comment on above: Result Comment: FANG GEMENT OF PATIENT CARE PER NURSING PROTOCOL Performed By: #### L 501.080 ####[facility] [address] [place], [address] CBC W/Diff, Automatedon 11-2 -2023 Absolute Lymph 1.63 X10 3/uL Normal 0.83-4.51 [facility] Comment on above: Performed By: #### L 100.0100, L500.2500 ####[facility] [address] [place], [address] Absolute Neut 11.4 X10 3/uL High 2.0-7.7 [facility] Comment on above: Performed By: #### L 100.0100, L500.2500 ####[facility] [address] [place], [address] Basophils/100 WBC (Bld) 0.3 % Normal 0-1 [facility] Comment on above: Performed By: #### L 100.0100, L500.2500 ####[facility] [address] [place], [address] Eosinophils/100 WBC (Bld) 1.1 % Normal 0-5 [facility] Comment on above: Performed By: #### L 100.0100, L500.2500 ####[facility] [address] [place], [address] Erythrocyte distribution width (RBC) [Ratio] 15.0 % High 11.6-14.6 [facility] Comment on above: Performed By: #### L 100.0100, L500.2500 ####[facility] [address] [place], [address] Hematocrit (Bld) [Volume fraction] 30.5 % Low 40-54 [facility] Comment on above: Performed By: #### L 100.0100, L500.2500 ####[facility] [address] [place], [address] Hemoglobin (Bld) [Mass/Vol] 9.4 g/dL Low 13.0-16.5 [facility] Comment on above: Performed By: #### L 100.0100, L500.2500 ####[facility] [address] [place], [address] IG% 0.900 Normal 0.0-0.9 [facility] Comment on above: Result Comment: IG% - Immature Granulocytes (promyelocytes, myelocytes andmetamyelocytes) > 1% indicates that a LEFT SHIFT is Present. Performed By: #### L 100.0100, L500.2500 ####[facility] [address] [place], [address] Lymphocytes/100 WBC (Bld) 11.1 % Low 19-41 [facility] Comment on above: Performed By: #### L 100.0100, L500.2500 ####[facility] [address] [place], [address] MCH (RBC) [Entitic mass] 29.8 pg Normal 27.0-32.0 [facility] Comment on above: Performed By: #### L 100.0100, L500.2500 ####[facility] [address] [place], [address] MCHC (RBC) [Mass/Vol] 30.8 g/dL Low 32-36 [facility] Comment on above: Performed By: #### L 100.0100, L500.2500 ####[facility] [address] [place], [address] MCV (RBC) [Entitic vol] 96.8 fL High 80-94 [facility] Comment on above: Performed By: #### L 100.0100, L500.2500 ####[facility] [address] [place], [address] Monocytes/100 WBC (Bld) 8.9 % Normal 0-10 [facility] Comment on above: Performed By: #### L 100.0100, L500.2500 ####[facility] [address] [place], [address] Neutrophils/100 WBC (Bld) 77.7 % High 47-70 [facility] Comment on above: Performed By: #### L 100.0100, L500.2500 ####[facility] [address] [place], [address] Nucleated RBC (Bld) [#/Vol] 0 10*3/uL Normal 0-5 [facility] Comment on above: Performed By: #### L 100.0100, L500.2500 ####[facility] [address] [place], [address] Platelet mean volume (Bld) [Entitic vol] 11.4 fL Normal 6.2-12.0 [facility] Comment on above: Performed By: #### L 100.0100, L500.2500 ####[facility] [address] [place], [address] Platelets (Bld) [#/Vol] 253 10*3/uL Normal 150-450 [facility] Comment on above: Performed By: #### L 100.0100, L500.2500 ####[facility] [address] [place], [address] RBC (Bld) [#/Vol] 3.15 10*6/uL Low 4.6-6.2 [facility] Comment on above: Performed By: #### L 100.0100, L500.2500 ####[facility] [address] [place], [address] RDW SD 52.9 fl High 35.1-43.9 [facility] Comment on above: Performed By: #### L 100.0100, L500.2500 ####[facility] [address] [place], [address] WBC (Bld) [#/Vol] 14.6 10*3/uL High 4.4-11.0 [facility] Comment on above: Performed By: #### L 100.0100, L500.2500 ####[facility] [address] [place], [address] Culture, Blood (WB)on 2023 CUB Blood cultures x2 fr om two different sites No growth in [address] [facility] Comment on above: Performed By: #### M 200.1000 ####[facility] [address] [place], [address] ACT Activated Clotting Timeo n 04-18-2024 ACTk CLOT TIME 222 sec High 74-137 [facility] Comment on above: Performed By: #### L 9100.0100 ####[facility] [address] [place], [address] BUNon 04-18-2024 Urea nitrogen [Mass/Vol] 39 mg/dL High 7-18 [facility] Comment on above: Performed By: #### L 501.1105, L501.1000 ####[facility] [address] [place], [address] Basic Metabolic Profile (BMP )on 04-18-2024 BUN/CRE 16.6 RATIO Normal 10-20 [facility] Comment on above: Performed By: #### L 500.2500, L100.0100 ####[facility] [address] [place], [address] CA,Total 8.5 mg/dL Normal 8.5-10.1 [facility] Comment on above: Performed By: #### L 500.2500, L100.0100 ####[facility] [address] [place], [address] Chloride [Moles/Vol] 98 mmol/L Normal 98-107 [facility] Comment on above: Performed By: #### L 500.2500, L100.0100 ####[facility] [address] [place], [address] CO2 [Moles/Vol] 24.0 mmol/L Normal 21.0-32.0 [facility] Comment on above: Performed By: #### L 500.2500, L100.0100 ####[facility] [address] [place], [address] Creatinine [Mass/Vol] 5.00 mg/dL High 0.70-1.30 [facility] Comment on above: Result Comment: The validity of the calculated GFR GFRAA in patients over70 years has not been determined. Clinical correlation isessential. Performed By: #### L 500.2500, L100.0100 ####[facility] [address] [place], [address] ECRCL 12.43 ml/min Normal [facility] Comment on above: Performed By: #### L 500.2500, L100.0100 ####[facility] [address] [place], [address] EST GFR - AA 14 mL/min Low >60 [facility] Comment on above: Result Comment: Afri can [place] GFR Calc Performed By: #### L 500.2500, L100.0100 ####[facility] [address] [place], [address] GAP 10 Normal 5-15 [facility] Comment on above: Performed By: #### L 500.2500, L100.0100 ####[facility] [address] [place], [address] GFR/1.73 sq M.predicted among non-blacks MDRD (S/P/Bld) [Vol rate/Area] 12 mL/min/{1.73_m2} Low >60 [facility] Comment on above: Result Comment: Non- GFR Calc Performed By: #### L 500.2500, L100.0100 ####[facility] [address] [place], [address] Glucose [Mass/Vol] 136 mg/dL High 74-106 [facility] Comment on above: Result Comment: Fast ing Glucose result greater than or equal to 126 mg/dLsuggests DIABETES MELLITUS per A.D.A. criteria. Performed By: #### L 500.2500, L100.0100 ####[facility] [address] [place], [address] Potassium [Moles/Vol] 4.1 mmol/L Normal 3.5-5.1 [facility] Comment on above: Performed By: #### L 500.2500, L100.0100 ####[facility] [address] [place], [address] Sodium [Moles/Vol] 132 mmol/L Low 136-145 [facility] Comment on above: Performed By: #### L 500.2500, L100.0100 ####[facility] [address] [place], [address] Urea nitrogen [Mass/Vol] 83 mg/dL High 7-18 [facility] Comment on above: Performed By: #### L 500.2500, L100.0100 ####[facility] [address] [place], [address] Bedside Glucoseon 04-18-2024 FINGERSTICK GLU 289 mg/dL High 74-106 [facility] Comment on above: Result Comment: FANG GEMENT OF PATIENT CARE PER NURSING PROTOCOL Performed By: #### L 501.080 ####[facility] [address] [place], [address] FINGERSTICK GLU 106 mg/dL Normal 74-106 [facility] Comment on above: Result Comment: FANG GEMENT OF PATIENT CARE PER NURSING PROTOCOL Performed By: #### L 501.080 ####[facility] [address] [place], [address] FINGERSTICK GLU 123 mg/dL High 74-106 [facility] Comment on above: Result Comment: FANG GEMENT OF PATIENT CARE PER NURSING PROTOCOL Performed By: #### L 501.080 ####[facility] [address] [place], [address] FINGERSTICK GLU 132 mg/dL High 74-106 [facility] Comment on above: Result Comment: FANG GEMENT OF PATIENT CARE PER NURSING PROTOCOL Performed By: #### L 501.080 ####[facility] [address] [place], [address] FINGERSTICK GLU 313 mg/dL High 74-106 [facility] Comment on above: Result Comment: FANG GEMENT OF PATIENT CARE PER NURSING PROTOCOL Performed By: #### L 501.080 ####[facility] [address] [place], [address] CBC W/Diff, Automatedon 11-2 -2023 Absolute Lymph 1.73 X10 3/uL Normal 0.83-4.51 [facility] Comment on above: Performed By: #### L 500.2500, L100.0100 ####[facility] [address] [place], [address] Absolute Neut 11.4 X10 3/uL High 2.0-7.7 [facility] Comment on above: Performed By: #### L 500.2500, L100.0100 ####[facility] [address] [place], [address] Basophils/100 WBC (Bld) 0.3 % Normal 0-1 [facility] Comment on above: Performed By: #### L 500.2500, L100.0100 ####[facility] [address] [place], [address] Eosinophils/100 WBC (Bld) 1.4 % Normal 0-5 [facility] Comment on above: Performed By: #### L 500.2500, L100.0100 ####[facility] [address] [place], [address] Erythrocyte distribution width (RBC) [Ratio] 14.8 % High 11.6-14.6 [facility] Comment on above: Performed By: #### L 500.2500, L100.0100 ####[facility] [address] [place], [address] Hematocrit (Bld) [Volume fraction] 30.8 % Low 40-54 [facility] Comment on above: Performed By: #### L 500.2500, L100.0100 ####[facility] [address] [place], [address] Hemoglobin (Bld) [Mass/Vol] 9.5 g/dL Low 13.0-16.5 [facility] Comment on above: Performed By: #### L 500.2500, L100.0100 ####[facility] [address] [place], [address] IG% 0.900 Normal 0.0-0.9 [facility] Comment on above: Result Comment: IG% - Immature Granulocytes (promyelocytes, myelocytes andmetamyelocytes) > 1% indicates that a LEFT SHIFT is Present. Performed By: #### L 500.2500, L100.0100 ####[facility] [address] [place], [address] Lymphocytes/100 WBC (Bld) 11.7 % Low 19-41 [facility] Comment on above: Performed By: #### L 500.2500, L100.0100 ####[facility] [address] [place], [address] MCH (RBC) [Entitic mass] 29.8 pg Normal 27.0-32.0 [facility] Comment on above: Performed By: #### L 500.2500, L100.0100 ####[facility] [address] [place], [address] MCHC (RBC) [Mass/Vol] 30.8 g/dL Low 32-36 [facility] Comment on above: Performed By: #### L 500.2500, L100.0100 ####[facility] [address] [place], [address] MCV (RBC) [Entitic vol] 96.6 fL High 80-94 [facility] Comment on above: Performed By: #### L 500.2500, L100.0100 ####[facility] [address] [place], [address] Monocytes/100 WBC (Bld) 8.4 % Normal 0-[address] [facility] Comment on above: Performed By: #### L 500.2500, L100.0100 ####[facility] [address] [place], [address] Neutrophils/100 WBC (Bld) 77.3 % High 47-70 [facility] Comment on above: Performed By: #### L 500.2500, L100.0100 ####[facility] [address] [place], [address] Nucleated RBC (Bld) [#/Vol] 0 10*3/uL Normal 0-5 [facility] Comment on above: Performed By: #### L 500.2500, L100.0100 ####[facility] [address] [place], [address] Platelet mean volume (Bld) [Entitic vol] 11.7 fL Normal 6.2-12.0 [facility] Comment on above: Performed By: #### L 500.2500, L100.0100 ####[facility] [address] [place], [address] Platelets (Bld) [#/Vol] 250 10*3/uL Normal 150-450 [facility] Comment on above: Performed By: #### L 500.2500, L100.0100 ####[facility] [address] [place], [address] RBC (Bld) [#/Vol] 3.19 10*6/uL Low 4.6-6.2 [facility] Comment on above: Performed By: #### L 500.2500, L100.0100 ####[facility] [address] [place], [address] RDW SD 51.9 fl High 35.1-43.9 [facility] Comment on above: Performed By: #### L 500.2500, L100.0100 ####[facility] [address] [place], [address] WBC (Bld) [#/Vol] 14.7 10*3/uL High 4.4-11.0 [facility] Comment on above: Performed By: #### L 500.2500, L100.0100 ####[facility] [address] [place], [address] Operative Reporton [address] [facility] Serum Creatinine AND GFRon 1 06-18-2023 Creatinine [Mass/Vol] 2.45 mg/dL High 0.70-1.30 [facility] Comment on above: Result Comment: The validity of the calculated GFR GFRAA in patients over70 years has not been determined. Clinical correlation isessential. Performed By: #### L 501.1105, L501.1000 ####[facility] [address] [place], [address] ECRCL 24.91 ml/min Normal [facility] Comment on above: Performed By: #### L 501.1105, L501.1000 ####[facility] [address] [place], [address] EST GFR - AA 32 mL/min Low >60 [facility] Comment on above: Result Comment: Afri can [place] GFR Calc Performed By: #### L 501.1105, L501.1000 ####[facility] [address] [place], [address] GFR/1.73 sq M.predicted among non-blacks MDRD (S/P/Bld) [Vol rate/Area] 27 mL/min/{1.73_m2} Low >60 [facility] Comment on above: Result Comment: Non- GFR Calc Performed By: #### L 501.1105, L501.1000 ####[facility] [address] [place], [address] Vancomycin, Random Levelon 1 06-18-2023 VANCO, RANDOM 16.5 ug/mL High 0.0-15.0 [facility] Comment on above: Order Comment: Comme nts: WITH AM LABS PLEASE, PRIOR TO HD Result Comment: VANC OMYCIN STANDARD DRUG THERAPY: CRITICAL VALUE IS > 15.0 mg/LVANCOMYCIN HIGH INTENSITY THERAPY: CRITICAL VALUE IS > 20.0 mg/LPLEASE CONTACT PHARMACY SERVICES (#5452) FOR INTERPRETATIONOF RESULTS. THIS RESULT DOES NOT REPRESENT A PEAK OR TROUGHLEVEL FOR THIS DRUG. Performed By: #### L 501.8850 ####[facility] [address] [place], [address] Basic Metabolic Profile (BMP )on 04-17-2024 BUN/CRE 14.9 RATIO Normal 10-20 [facility] Comment on above: Performed By: #### L 100.0100, L500.2500 ####[facility] [address] [place], [address] CA,Total 8.7 mg/dL Normal 8.5-10.1 [facility] Comment on above: Performed By: #### L 100.0100, L500.2500 ####[facility] [address] [place], [address] Chloride [Moles/Vol] 99 mmol/L Normal 98-107 [facility] Comment on above: Performed By: #### L 100.0100, L500.2500 ####[facility] [address] [place], [address] CO2 [Moles/Vol] 27.0 mmol/L Normal 21.0-32.0 [facility] Comment on above: Performed By: #### L 100.0100, L500.2500 ####[facility] [address] [place], [address] Creatinine [Mass/Vol] 3.88 mg/dL High 0.70-1.30 [facility] Comment on above: Result Comment: The validity of the calculated GFR GFRAA in patients over70 years has not been determined. Clinical correlation isessential. Performed By: #### L 100.0100, L500.2500 ####[facility] [address] [place], [address] ECRCL 15.55 ml/min Normal [facility] Comment on above: Performed By: #### L 100.0100, L500.2500 ####[facility] [address] [place], [address] EST GFR - AA 19 mL/min Low >60 [facility] Comment on above: Result Comment: Afri can [place] GFR Calc Performed By: #### L 100.0100, L500.2500 ####[facility] [address] [place], [address] GAP 8 Normal 5-15 [facility] Comment on above: Performed By: #### L 100.0100, L500.2500 ####[facility] [address] [place], [address] GFR/1.73 sq M.predicted among non-blacks MDRD (S/P/Bld) [Vol rate/Area] 16 mL/min/{1.73_m2} Low >60 [facility] Comment on above: Result Comment: Non- GFR Calc Performed By: #### L 100.0100, L500.2500 ####[facility] [address] [place], [address] Glucose [Mass/Vol] 139 mg/dL High 74-106 [facility] Comment on above: Result Comment: Fast ing Glucose result greater than or equal to 126 mg/dLsuggests DIABETES MELLITUS per A.D.A. criteria. Performed By: #### L 100.0100, L500.2500 ####[facility] [address] [place], [address] Potassium [Moles/Vol] 4.0 mmol/L Normal 3.5-5.1 [facility] Comment on above: Performed By: #### L 100.0100, L500.2500 ####[facility] [address] [place], [address] Sodium [Moles/Vol] 133 mmol/L Low 136-145 [facility] Comment on above: Performed By: #### L 100.0100, L500.2500 ####[facility] [address] [place], [address] Urea nitrogen [Mass/Vol] 58 mg/dL High 7-18 [facility] Comment on above: Performed By: #### L 100.0100, L500.2500 ####[facility] [address] [place], [address] Bedside Glucoseon 04-17-2024 FINGERSTICK GLU 337 mg/dL High 74-106 [facility] Comment on above: Result Comment: FANG GEMENT OF PATIENT CARE PER NURSING PROTOCOL Performed By: #### L 501.080 ####[facility] [address] [place], [address] FINGERSTICK GLU 219 mg/dL High 74-106 [facility] Comment on above: Result Comment: FANG GEMENT OF PATIENT CARE PER NURSING PROTOCOL Performed By: #### L 501.080 ####[facility] [address] [place], [address] FINGERSTICK GLU 139 mg/dL High 74-106 [facility] Comment on above: Result Comment: FANG VAZQUEZ OF PATIENT CARE PER NURSING PROTOCOL Performed By: #### L 501.080 ####[facility] [address] [place], [address] CBC W/Diff, Automatedon 11-2 Absolute Lymph 2.01 X10 3/uL Normal 0.83-4.51 [facility] Comment on above: Performed By: #### L 100.0100, L500.2500 ####[facility] [address] [place], [address] Absolute Neut 11.4 X10 3/uL High 2.0-7.7 [facility] Comment on above: Performed By: #### L 100.0100, L500.2500 ####[facility] [address] [place], [address] Basophils/100 WBC (Bld) 0.2 % Normal 0-1 [facility] Comment on above: Performed By: #### L 100.0100, L500.2500 ####[facility] [address] [place], [address] Eosinophils/100 WBC (Bld) 0.9 % Normal 0-5 [facility] Comment on above: Performed By: #### L 100.0100, L500.2500 ####[facility] [address] [place], [address] Erythrocyte distribution width (RBC) [Ratio] 14.8 % High 11.6-14.6 [facility] Comment on above: Performed By: #### L 100.0100, L500.2500 ####[facility] [address] [place], [address] Hematocrit (Bld) [Volume fraction] 32.2 % Low 40-54 [facility] Comment on above: Performed By: #### L 100.0100, L500.2500 ####[facility] [address] [place], [address] Hemoglobin (Bld) [Mass/Vol] 9.7 g/dL Low 13.0-16.5 [facility] Comment on above: Performed By: #### L 100.0100, L500.2500 ####[facility] [address] [place], [address] IG% 0.500 Normal 0.0-0.9 [facility] Comment on above: Result Comment: IG% - Immature Granulocytes (promyelocytes, myelocytes andmetamyelocytes) > 1% indicates that a LEFT SHIFT is Present. Performed By: #### L 100.0100, L500.2500 ####[facility] [address] [place], [address] Lymphocytes/100 WBC (Bld) 13.4 % Low 19-41 [facility] Comment on above: Performed By: #### L 100.0100, L500.2500 ####[facility] [address] [place], [address] MCH (RBC) [Entitic mass] 29.6 pg Normal 27.0-32.0 [facility] Comment on above: Performed By: #### L 100.0100, L500.2500 ####[facility] [address] [place], [address] MCHC (RBC) [Mass/Vol] 30.1 g/dL Low 32-36 [facility] Comment on above: Performed By: #### L 100.0100, L500.2500 ####[facility] [address] [place], [address] MCV (RBC) [Entitic vol] 98.2 fL High 80-94 [facility] Comment on above: Performed By: #### L 100.0100, L500.2500 ####[facility] [address] [place], [address] Monocytes/100 WBC (Bld) 9.3 % Normal 0-10 [facility] Comment on above: Performed By: #### L 100.0100, L500.2500 ####[facility] [address] [place], [address] Neutrophils/100 WBC (Bld) 75.7 % High 47-70 [facility] Comment on above: Performed By: #### L 100.0100, L500.2500 ####[facility] [address] [place], [address] Nucleated RBC (Bld) [#/Vol] 0 10*3/uL Normal 0-5 [facility] Comment on above: Performed By: #### L 100.0100, L500.2500 ####[facility] [address] [place], [address] Platelet mean volume (Bld) [Entitic vol] 11.7 fL Normal 6.2-12.0 [facility] Comment on above: Performed By: #### L 100.0100, L500.2500 ####[facility] [address] [place], [address] Platelets (Bld) [#/Vol] 232 10*3/uL Normal 150-450 [facility] Comment on above: Performed By: #### L 100.0100, L500.2500 ####[facility] [address] [place], [address] RBC (Bld) [#/Vol] 3.28 10*6/uL Low 4.6-6.2 [facility] Comment on above: Performed By: #### L 100.0100, L500.2500 ####[facility] [address] [place], [address] RDW SD 53.6 fl High 35.1-43.9 [facility] Comment on above: Performed By: #### L 100.0100, L500.2500 ####[facility] [address] [place], [address] WBC (Bld) [#/Vol] 15.0 10*3/uL High 4.4-11.0 [facility] Comment on above: Performed By: #### L 100.0100, L500.2500 ####[facility] [address] [place], [address] 12 Lead EKGon 04-16-2024 [address] [facility] Basic Metabolic Profile (BMP )on 04-16-2024 BUN/CRE 12.0 RATIO Normal 10-20 [facility] Comment on above: Performed By: #### L 100.0100, L500.2500 ####[facility] [address] [place], [address] CA,Total 8.6 mg/dL Normal 8.5-10.1 [facility] Comment on above: Performed By: #### L 100.0100, L500.2500 ####[facility] [address] [place], [address] Chloride [Moles/Vol] 96 mmol/L Low 98-107 [facility] Comment on above: Performed By: #### L 100.0100, L500.2500 ####[facility] [address] [place], [address] CO2 [Moles/Vol] 28.0 mmol/L Normal 21.0-32.0 [facility] Comment on above: Performed By: #### L 100.0100, L500.2500 ####[facility] [address] [place], [address] Creatinine [Mass/Vol] 4.76 mg/dL High 0.70-1.30 [facility] Comment on above: Result Comment: The validity of the calculated GFR GFRAA in patients over70 years has not been determined. Clinical correlation isessential. Performed By: #### L 100.0100, L500.2500 ####[facility] [address] [place], [address] ECRCL 12.86 ml/min Normal [facility] Comment on above: Performed By: #### L 100.0100, L500.2500 ####[facility] [address] [place], [address] EST GFR - AA 15 mL/min Low >60 [facility] Comment on above: Result Comment: Afri can [place] GFR Calc Performed By: #### L 100.0100, L500.2500 ####[facility] [address] [place], [address] GAP 9 Normal 5-15 [facility] Comment on above: Performed By: #### L 100.0100, L500.2500 ####[facility] [address] [place], [address] GFR/1.73 sq M.predicted among non-blacks MDRD (S/P/Bld) [Vol rate/Area] 12 mL/min/{1.73_m2} Low >60 [facility] Comment on above: Result Comment: Non- GFR Calc Performed By: #### L 100.0100, L500.2500 ####[facility] [address] [place], [address] Glucose [Mass/Vol] 148 mg/dL High 74-106 [facility] Comment on above: Result Comment: Fast ing Glucose result greater than or equal to 126 mg/dLsuggests DIABETES MELLITUS per A.D.A. criteria. Performed By: #### L 100.0100, L500.2500 ####[facility] [address] [place], [address] Potassium [Moles/Vol] 4.1 mmol/L Normal 3.5-5.1 [facility] Comment on above: Performed By: #### L 100.0100, L500.2500 ####[facility] [address] [place], [address] Sodium [Moles/Vol] 133 mmol/L Low 136-145 [facility] Comment on above: Performed By: #### L 100.0100, L500.2500 ####[facility] [address] [place], [address] Urea nitrogen [Mass/Vol] 57 mg/dL High 7-18 [facility] Comment on above: Performed By: #### L 100.0100, L500.2500 ####[facility] [address] [place], [address] Bedside Glucoseon 04-16-2024 FINGERSTICK GLU 273 mg/dL High 74-106 [facility] Comment on above: Result Comment: FANG GEMENT OF PATIENT CARE PER NURSING PROTOCOL Performed By: #### L 501.080 ####[facility] [address] [place], [address] FINGERSTICK GLU 266 mg/dL High 74-106 [facility] Comment on above: Result Comment: FANG GEMENT OF PATIENT CARE PER NURSING PROTOCOL Performed By: #### L 501.080 ####[facility] [address] [place], [address] FINGERSTICK GLU 142 mg/dL High 74-106 [facility] Comment on above: Result Comment: FNAG GEMENT OF PATIENT CARE PER NURSING PROTOCOL Performed By: #### L 501.080 ####[facility] [address] [place], [address] CBC W/Diff, Automatedon - Absolute Lymph 1.44 X10 3/uL Normal 0.83-4.51 [facility] Comment on above: Performed By: #### L 100.0100, L500.2500 ####[facility] [address] [place], [address] Absolute Neut 10.4 X10 3/uL High 2.0-7.7 [facility] Comment on above: Performed By: #### L 100.0100, L500.2500 ####[facility] [address] [place], [address] Basophils/100 WBC (Bld) 0.2 % Normal 0-1 [facility] Comment on above: Performed By: #### L 100.0100, L500.2500 ####[facility] [address] [place], [address] Eosinophils/100 WBC (Bld) 0.5 % Normal 0-5 [facility] Comment on above: Performed By: #### L 100.0100, L500.2500 ####[facility] [address] [place], [address] Erythrocyte distribution width (RBC) [Ratio] 14.9 % High 11.6-14.6 [facility] Comment on above: Performed By: #### L 100.0100, L500.2500 ####[facility] [address] [place], [address] Hematocrit (Bld) [Volume fraction] 32.4 % Low 40-54 [facility] Comment on above: Performed By: #### L 100.0100, L500.2500 ####[facility] [address] [place], [address] Hemoglobin (Bld) [Mass/Vol] 10.0 g/dL Low 13.0-16.5 [facility] Comment on above: Performed By: #### L 100.0100, L500.2500 ####[facility] [address] [place], [address] IG% 0.400 Normal 0.0-0.9 [facility] Comment on above: Result Comment: IG% - Immature Granulocytes (promyelocytes, myelocytes andmetamyelocytes) > 1% indicates that a LEFT SHIFT is Present. Performed By: #### L 100.0100, L500.2500 ####[facility] [address] [place], [address] Lymphocytes/100 WBC (Bld) 10.9 % Low 19-41 [facility] Comment on above: Performed By: #### L 100.0100, L500.2500 ####[facility] [address] [place], [address] MCH (RBC) [Entitic mass] 29.9 pg Normal 27.0-32.0 [facility] Comment on above: Performed By: #### L 100.0100, L500.2500 ####[facility] [address] [place], [address] MCHC (RBC) [Mass/Vol] 30.9 g/dL Low 32-36 [facility] Comment on above: Performed By: #### L 100.0100, L500.2500 ####[facility] [address] [place], [address] MCV (RBC) [Entitic vol] 97.0 fL High 80-94 [facility] Comment on above: Performed By: #### L 100.0100, L500.2500 ####[facility] [address] [place], [address] Monocytes/100 WBC (Bld) 9.6 % Normal 0-10 [facility] Comment on above: Performed By: #### L 100.0100, L500.2500 ####[facility] [address] [place], [address] Neutrophils/100 WBC (Bld) 78.4 % High 47-70 [facility] Comment on above: Performed By: #### L 100.0100, L500.2500 ####[facility] [address] [place], [address] Nucleated RBC (Bld) [#/Vol] 0 10*3/uL Normal 0-5 [facility] Comment on above: Performed By: #### L 100.0100, L500.2500 ####[facility] [address] [place], [address] Platelet mean volume (Bld) [Entitic vol] 11.1 fL Normal 6.2-12.0 [facility] Comment on above: Performed By: #### L 100.0100, L500.2500 ####[facility] [address] [place], [address] Platelets (Bld) [#/Vol] 223 10*3/uL Normal 150-450 [facility] Comment on above: Performed By: #### L 100.0100, L500.2500 ####[facility] [address] [place], [address] RBC (Bld) [#/Vol] 3.34 10*6/uL Low 4.6-6.2 [facility] Comment on above: Performed By: #### L 100.0100, L500.2500 ####[facility] [address] [place], [address] RDW SD 52.6 fl High 35.1-43.9 [facility] Comment on above: Performed By: #### L 100.0100, L500.2500 ####[facility] [address] [place], [address] WBC (Bld) [#/Vol] 13.3 10*3/uL High 4.4-11.0 [facility] Comment on above: Performed By: #### L 100.0100, L500.2500 ####[facility] [address] [place], [address] Consultation - Infectious Dx on 04-16-2024 Consultation - Infectious Dx Normal [facility] Consultation - Nephrologyon 04-16-2024 Consultation - Nephrology Normal [facility] Consultation - Surgicalon Consultation - Surgical Normal [facility] Gram Stainon 04-16-2024 GS Gram Stain 2+ Gram positive cocci 2+ Red Blood Cells 2+ Gram variable yessy No Epithelial cells Normal [facility] Comment on above: Performed By: #### M 100.2000, M100.4001, M100.3000 ####[facility] [address] [place], [address] Hemoglobin A1con 04-16-2024 HbA1c (Bld) [Mass fraction] 9.0 % High 3.8-5.6 [facility] Comment on above: Result Comment: Norm al < 5.7 % Prediabetic 5.7 - 6.4 % Diabetic >or= 6.5 % Please note range changes. Performed By: #### L 501.9985 ####[facility] [address] [place], [address] Lower Ext/No Jt/w/oon 2023 Lower Ext/No Jt/w/o Normal [facility] Bedside Glucoseon 04-15-2024 FINGERSTICK GLU 262 mg/dL High 74-106 [facility] Comment on above: Result Comment: FANG GEMENT OF PATIENT CARE PER NURSING PROTOCOL Performed By: #### L 501.080 ####[facility] [address] [place], [address] FINGERSTICK GLU 188 mg/dL High 74-106 [facility] Comment on above: Result Comment: FANG GEMENT OF PATIENT CARE PER NURSING PROTOCOL Performed By: #### L 501.080 ####[facility] [address] [place], [address] FINGERSTICK GLU 114 mg/dL High 74-106 [facility] Comment on above: Result Comment: FANG GEMENT OF PATIENT CARE PER NURSING PROTOCOL Performed By: #### L 501.080 ####[facility] [address] [place], [address] FINGERSTICK GLU 117 mg/dL High 74-106 [facility] Comment on above: Result Comment: FANG VAZQUEZ OF PATIENT CARE PER NURSING PROTOCOL Performed By: #### L 501.080 ####[facility] [address] [place], [address] CBC W/Diff, Automatedon 11-2 -2023 Absolute Lymph 1.56 X10 3/uL Normal 0.83-4.51 [facility] Comment on above: Performed By: #### L 300.3900, L500.4050, L501.9520, L100.0100 ####[facility] [address] [place], [address] Absolute Neut 9.4 X10 3/uL High 2.0-7.7 [facility] Comment on above: Performed By: #### L 300.3900, L500.4050, L501.9520, L100.0100 ####[facility] [address] [place], [address] Basophils/100 WBC (Bld) 0.2 % Normal 0-1 [facility] Comment on above: Performed By: #### L 300.3900, L500.4050, L501.9520, L100.0100 ####[facility] [address] [place], [address] Eosinophils/100 WBC (Bld) 0.3 % Normal 0-5 [facility] Comment on above: Performed By: #### L 300.3900, L500.4050, L501.9520, L100.0100 ####[facility] [address] [place], [address] Erythrocyte distribution width (RBC) [Ratio] 15.0 % High 11.6-14.6 [facility] Comment on above: Performed By: #### L 300.3900, L500.4050, L501.9520, L100.0100 ####[facility] [address] [place], [address] Hematocrit (Bld) [Volume fraction] 31.9 % Low 40-54 [facility] Comment on above: Performed By: #### L 300.3900, L500.4050, L501.9520, L100.0100 ####[facility] [id number] [place], [address] Hemoglobin (Bld) [Mass/Vol] 9.8 g/dL Low 13.0-16.5 [facility] Comment on above: Performed By: #### L 300.3900, L500.4050, L501.9520, L100.0100 ####[facility] [address] [place], [address] IG% 0.500 Normal 0.0-0.9 [facility] Comment on above: Result Comment: IG% - Immature Granulocytes (promyelocytes, myelocytes andmetamyelocytes) > 1% indicates that a LEFT SHIFT is Present. Performed By: #### L 300.3900, L500.4050, L501.9520, L100.0100 ####[facility] [address] [place], [address] Lymphocytes/100 WBC (Bld) 12.7 % Low 19-41 [facility] Comment on above: Performed By: #### L 300.3900, L500.4050, L501.9520, L100.0100 ####[facility] [address] [place], [address] MCH (RBC) [Entitic mass] 29.8 pg Normal 27.0-32.0 [facility] Comment on above: Performed By: #### L 300.3900, L500.4050, L501.9520, L100.0100 ####[facility] [address] [place], [address] MCHC (RBC) [Mass/Vol] 30.7 g/dL Low 32-36 [facility] Comment on above: Performed By: #### L 300.3900, L500.4050, L501.9520, L100.0100 ####[facility] [address] [place], [address] MCV (RBC) [Entitic vol] 97.0 fL High 80-94 [facility] Comment on above: Performed By: #### L 300.3900, L500.4050, L501.9520, L100.0100 ####[facility] [address] [place], [address] Monocytes/100 WBC (Bld) 9.6 % Normal 0-[address] [facility] Comment on above: Performed By: #### L 300.3900, L500.4050, L501.9520, L100.0100 ####[facility] [address] [place], [address] Neutrophils/100 WBC (Bld) 76.7 % High 47-70 [facility] Comment on above: Performed By: #### L 300.3900, L500.4050, L501.9520, L100.0100 ####[facility] [address] [place], [address] Nucleated RBC (Bld) [#/Vol] 0 10*3/uL Normal 0-5 [facility] Comment on above: Performed By: #### L 300.3900, L500.4050, L501.9520, L100.0100 ####[facility] [address] [place], [address] Platelet mean volume (Bld) [Entitic vol] 11.1 fL Normal 6.2-12.0 [facility] Comment on above: Performed By: #### L 300.3900, L500.4050, L501.9520, L100.0100 ####[facility] [address] [place], [address] Platelets (Bld) [#/Vol] 238 10*3/uL Normal 150-450 [facility] Comment on above: Performed By: #### L 300.3900, L500.4050, L501.9520, L100.0100 ####[facility] [address] [place], [address] RBC (Bld) [#/Vol] 3.29 10*6/uL Low 4.6-6.2 [facility] Comment on above: Performed By: #### L 300.3900, L500.4050, L501.9520, L100.0100 ####[facility] [address] [place], [address] RDW SD 52.9 fl High 35.1-43.9 [facility] Comment on above: Performed By: #### L 300.3900, L500.4050, L501.9520, L100.0100 ####[facility] [address] [place], [address] WBC (Bld) [#/Vol] 12.2 10*3/uL High 4.4-11.0 [facility] Comment on above: Performed By: #### L 300.3900, L500.4050, L501.9520, L100.0100 ####[facility] [address] [place], [address] CRPon 04-15-2024 C-REACTIVE PROT 232.00 mg/L High 0.0-3.0 [facility] Comment on above: Order Comment: Comme nts: Add onto previous labs if possible Result Comment: C-Re active Protein (CRP) provides useful information for thediagnosis, therapy and monitoring of inflammatory processesand associated diseases. For the evaluation of Relative Riskfor Cardiovascular Disease, a High Sensitivity CRP (HSCRP)should be ordered. Performed By: #### L 501.6710, L101.9900 ####[facility] [address] [place], [address] Comprehensive Metabolic Prof ilon 04-15-2024 Albumin [Mass/Vol] 2.3 g/dL Low 3.2-5.0 [facility] Comment on above: Performed By: #### L 300.3900, L500.4050, L501.9520, L100.0100 ####[facility] [address] [place], [address] Albumin/Globulin [Mass ratio] 0.5 {ratio} Low 0.9-2.4 [facility] Comment on above: Performed By: #### L 300.3900, L500.4050, L501.9520, L100.0100 ####[facility] [address] [place], [address] ALK P 49 U/L Normal 45-117 [facility] Comment on above: Performed By: #### L 300.3900, L500.4050, L501.9520, L100.0100 ####[facility] [address] [place], [address] ALT [Catalytic activity/Vol] 13 U/L Low 16-61 [facility] Comment on above: Performed By: #### L 300.3900, L500.4050, L501.9520, L100.0100 ####[facility] [address] [place], [address] AST [Catalytic activity/Vol] 9 U/L Low 15-37 [facility] Comment on above: Performed By: #### L 300.3900, L500.4050, L501.9520, L100.0100 ####[facility] [address] [place], [address] Bilirubin [Mass/Vol] 0.50 mg/dL Normal 0.20-1.00 [facility] Comment on above: Result Comment: For patients on eltrombopag therapy, use of Dimension [place] TBIL is not recommended. Performed By: #### L 300.3900, L500.4050, L501.9520, L100.0100 ####[facility] [address] [place], [address] BUN/CRE 10.6 RATIO Normal 10-20 [facility] Comment on above: Performed By: #### L 300.3900, L500.4050, L501.9520, L100.0100 ####[facility] [address] [place], [address] CA,Total 8.4 mg/dL Low 8.5-10.1 [facility] Comment on above: Performed By: #### L 300.3900, L500.4050, L501.9520, L100.0100 ####[facility] [address] [place], [address] Chloride [Moles/Vol] 97 mmol/L Low 98-107 [facility] Comment on above: Performed By: #### L 300.3900, L500.4050, L501.9520, L100.0100 ####[facility] [address] [place], [address] CO2 [Moles/Vol] 28.0 mmol/L Normal 21.0-32.0 [facility] Comment on above: Performed By: #### L 300.3900, L500.4050, L501.9520, L100.0100 ####[facility] [address] [place], [address] Creatinine [Mass/Vol] 3.79 mg/dL High 0.70-1.30 [facility] Comment on above: Result Comment: The validity of the calculated GFR GFRAA in patients over70 years has not been determined. Clinical correlation isessential. Performed By: #### L 300.3900, L500.4050, L501.9520, L100.0100 ####[facility] [address] [place], [address] ECRCL 16.15 ml/min Normal [facility] Comment on above: Performed By: #### L 300.3900, L500.4050, L501.9520, L100.0100 ####[facility] [address] [place], [address] EST GFR - AA 20 mL/min Low >60 [facility] Comment on above: Result Comment: Afri can [place] GFR Calc Performed By: #### L 300.3900, L500.4050, L501.9520, L100.0100 ####[facility] [address] [place], [address] GAP 10 Normal 5-15 [facility] Comment on above: Performed By: #### L 300.3900, L500.4050, L501.9520, L100.0100 ####[facility] [address] [place], [address] GFR/1.73 sq M.predicted among non-blacks MDRD (S/P/Bld) [Vol rate/Area] 16 mL/min/{1.73_m2} Low >60 [facility] Comment on above: Result Comment: Non- GFR Calc Performed By: #### L 300.3900, L500.4050, L501.9520, L100.0100 ####[facility] [address] [place], [address] Globulin (S) [Mass/Vol] 4.7 g/dL High 2.2-4.2 [facility] Comment on above: Performed By: #### L 300.3900, L500.4050, L501.9520, L100.0100 ####[facility] [address] [place], [address] Glucose [Mass/Vol] 124 mg/dL High 74-106 [facility] Comment on above: Result Comment: Fast ing Glucose result from 100 to 125 mg/dLsuggests IMPAIRED HOMEOSTASIS per A.D.A. criteria. Performed By: #### L 300.3900, L500.4050, L501.9520, L100.0100 ####[facility] [address] [place], [address] Potassium [Moles/Vol] 3.8 mmol/L Normal 3.5-5.1 [facility] Comment on above: Performed By: #### L 300.3900, L500.4050, L501.9520, L100.0100 ####[facility] [address] [place], [address] Sodium [Moles/Vol] 135 mmol/L Low 136-145 [facility] Comment on above: Performed By: #### L 300.3900, L500.4050, L501.9520, L100.0100 ####[facility] [address] [place], [address] T PROT 7.0 g/dL Normal 6.4-8.2 [facility] Comment on above: Performed By: #### L 300.3900, L500.4050, L501.9520, L100.0100 ####[facility] [address] [place], [address] Urea nitrogen [Mass/Vol] 40 mg/dL High 7-18 [facility] Comment on above: Performed By: #### L 300.3900, L500.4050, L501.9520, L100.0100 ####[facility] [address] [place], [address] Erythrocyte Sed Rateon 04-15 SED RATE 68 mm/hr High 0-20 [facility] Comment on above: Order Comment: Comme nts: Add onto previous labs if possible Performed By: #### L 501.6710, L101.9900 ####[facility] [address] [place], [address] Gram Stainon 04-15-[address] [facility] Comment on above: Performed By: #### M 100.2000, M100.3000 ####[facility] [address] [place], [address] M8200.1075on 04-15-2024 M8200.1075 Pending MRSA PCR MRSA NEGATIVE STAPH. AUREUS PCR STAPH. AUREUS NEGATIVE Normal [facility] Comment on above: Performed By: #### M 8200.1075 ####[facility] [address] [place], [address] Prothrombin Time w/INRon INR Coag (PPP) [Relative time] 1.4 {INR} Normal [facility] Comment on above: Performed By: #### L 300.3900, L500.4050, L501.9520, L100.0100 ####[facility] [address] [place], [address] PT Coag (PPP) [Time] 16.7 s High 11.7-14.9 [facility] Comment on above: Performed By: #### L 300.3900, L500.4050, L501.9520, L100.0100 ####[facility] [address] [place], [address] Thyroid Stim Hormone (TSH)on 04-15-2024 TSH 0.665 uIU/mL Normal 0.358-3.740 [facility] Comment on above: Performed By: #### L 300.3900, L500.4050, L501.9520, L100.0100 ####[facility] [address] [place], [address] Ankle Brachial Indexon 04-14 Ankle Brachial Index Normal [facility] Bedside Glucoseon 04-14-2024 FINGERSTICK GLU 310 mg/dL High 74-106 [facility] Comment on above: Result Comment: FANG GEMENT OF PATIENT CARE PER NURSING PROTOCOL Performed By: #### L 501.080 ####[facility] [address] [place], [address] FINGERSTICK GLU 190 mg/dL High 74-106 [facility] Comment on above: Result Comment: FANG GEMENT OF PATIENT CARE PER NURSING PROTOCOL Performed By: #### L 501.080 ####[facility] [address] [place], [address] CBC W/Diff, Automatedon 03-24 Absolute Lymph 1.36 X10 3/uL Normal 0.83-4.51 [facility] Comment on above: Performed By: #### L 503.6005, L500.4050, L100.0100 ####[facility] [address] [place], [address] Absolute Neut 11.3 X10 3/uL High 2.0-7.7 [facility] Comment on above: Performed By: #### L 503.6005, L500.4050, L100.0100 ####[facility] [address] [place], [address] Basophils/100 WBC (Bld) 0.3 % Normal 0-1 [facility] Comment on above: Performed By: #### L 503.6005, L500.4050, L100.0100 ####[facility] [address] [place], [address] Eosinophils/100 WBC (Bld) 0.3 % Normal 0-5 [facility] Comment on above: Performed By: #### L 503.6005, L500.4050, L100.0100 ####[facility] [address] [place], [address] Erythrocyte distribution width (RBC) [Ratio] 15.1 % High 11.6-14.6 [facility] Comment on above: Performed By: #### L 503.6005, L500.4050, L100.0100 ####[facility] [address] [place], [address] Hematocrit (Bld) [Volume fraction] 35.3 % Low 40-54 [facility] Comment on above: Performed By: #### L 503.6005, L500.4050, L100.0100 ####[facility] [address] [place], [address] Hemoglobin (Bld) [Mass/Vol] 11.3 g/dL Low 13.0-16.5 [facility] Comment on above: Performed By: #### L 503.6005, L500.4050, L100.0100 ####[facility] [address] [place], [address] IG% 0.600 Normal 0.0-0.9 [facility] Comment on above: Result Comment: IG% - Immature Granulocytes (promyelocytes, myelocytes andmetamyelocytes) > 1% indicates that a LEFT SHIFT is Present. Performed By: #### L 503.6005, L500.4050, L100.0100 ####[facility] [address] [place], [address] Lymphocytes/100 WBC (Bld) 9.7 % Low 19-41 [facility] Comment on above: Performed By: #### L 503.6005, L500.4050, L100.0100 ####[facility] [address] [place], [address] MCH (RBC) [Entitic mass] 30.5 pg Normal 27.0-32.0 [facility] Comment on above: Performed By: #### L 503.6005, L500.4050, L100.0100 ####[facility] [address] [place], [address] MCHC (RBC) [Mass/Vol] 32.0 g/dL Normal 32-36 [facility] Comment on above: Performed By: #### L 503.6005, L500.4050, L100.0100 ####[facility] [address] [place], [address] MCV (RBC) [Entitic vol] 95.1 fL High 80-[address] [facility] Comment on above: Performed By: #### L 503.6005, L500.4050, L100.0100 ####[facility] [address] [place], [address] Monocytes/100 WBC (Bld) 8.6 % Normal 0-[address] [facility] Comment on above: Performed By: #### L 503.6005, L500.4050, L100.0100 ####[facility] [address] [place], [address] Neutrophils/100 WBC (Bld) 80.5 % High 47-70 [facility] Comment on above: Performed By: #### L 503.6005, L500.4050, L100.0100 ####[facility] [address] [place], [address] Nucleated RBC (Bld) [#/Vol] 0 10*3/uL Normal 0-5 [facility] Comment on above: Performed By: #### L 503.6005, L500.4050, L100.0100 ####[facility] [address] [place], [address] Platelet mean volume (Bld) [Entitic vol] 10.8 fL Normal 6.2-12.0 [facility] Comment on above: Performed By: #### L 503.6005, L500.4050, L100.0100 ####[facility] [address] [place], [address] Platelets (Bld) [#/Vol] 255 10*3/uL Normal 150-450 [facility] Comment on above: Performed By: #### L 503.6005, L500.4050, L100.0100 ####[facility] [address] [place], [address] RBC (Bld) [#/Vol] 3.71 10*6/uL Low 4.6-6.2 [facility] Comment on above: Performed By: #### L 503.6005, L500.4050, L100.0100 ####[facility] [address] [place], [address] RDW SD 52.1 fl High 35.1-43.9 [facility] Comment on above: Performed By: #### L 503.6005, L500.4050, L100.0100 ####[facility] [address] [place], [address] WBC (Bld) [#/Vol] 14.0 10*3/uL High 4.4-11.0 [facility] Comment on above: Performed By: #### L 503.6005, L500.4050, L100.0100 ####[facility] [address] [place], [address] CNOVon 04-14-2024 [facility] 04-14-2024 C-REACTIVE PROT 267.00 mg/L High 0.0-3.0 [facility] Comment on above: Result Comment: C-Re active Protein (CRP) provides useful information for thediagnosis, therapy and monitoring of inflammatory processesand associated diseases. For the evaluation of Relative Riskfor Cardiovascular Disease, a High Sensitivity CRP (HSCRP)should be ordered. Performed By: #### L 101.9900, L501.6710 ####[facility] [address] [place], [address] Comprehensive Metabolic Prof ilon 04-14-2024 Albumin [Mass/Vol] 2.7 g/dL Low 3.2-5.0 [facility] Comment on above: Performed By: #### L 503.6005, L500.4050, L100.0100 ####[facility] [address] [place], [address] Albumin/Globulin [Mass ratio] 0.5 {ratio} Low 0.9-2.4 [facility] Comment on above: Performed By: #### L 503.6005, L500.4050, L100.0100 ####[facility] [address] [place], [address] ALK P 62 U/L Normal 45-117 [facility] Comment on above: Performed By: #### L 503.6005, L500.4050, L100.0100 ####[facility] [address] [place], [address] ALT [Catalytic activity/Vol] 11 U/L Low 16-61 [facility] Comment on above: Performed By: #### L 503.6005, L500.4050, L100.0100 ####[facility] [address] [place], [address] AST [Catalytic activity/Vol] 15 U/L Normal 15-37 [facility] Comment on above: Performed By: #### L 503.6005, L500.4050, L100.0100 ####[facility] [address] [place], [address] Bilirubin [Mass/Vol] 0.50 mg/dL Normal 0.20-1.00 [facility] Comment on above: Result Comment: For patients on eltrombopag therapy, use of Dimension [place] TBIL is not recommended. Performed By: #### L 503.6005, L500.4050, L100.0100 ####[facility] [address] [place], [address] BUN/CRE 9.5 RATIO Low 10-20 [facility] Comment on above: Performed By: #### L 503.6005, L500.4050, L100.0100 ####[facility] [address] [place], [address] CA,Total 8.6 mg/dL Normal 8.5-10.1 [facility] Comment on above: Performed By: #### L 503.6005, L500.4050, L100.0100 ####[facility] [address] [place], [address] Chloride [Moles/Vol] 96 mmol/L Low 98-107 [facility] Comment on above: Performed By: #### L 503.6005, L500.4050, L100.0100 ####[facility] [address] [place], [address] CO2 [Moles/Vol] 32.0 mmol/L Normal 21.0-32.0 [facility] Comment on above: Performed By: #### L 503.6005, L500.4050, L100.0100 ####[facility] [address] [place], [address] Creatinine [Mass/Vol] 2.84 mg/dL High 0.70-1.30 [facility] Comment on above: Result Comment: The validity of the calculated GFR GFRAA in patients over70 years has not been determined. Clinical correlation isessential. Performed By: #### L 503.6005, L500.4050, L100.0100 ####[facility] [address] [place], [address] ECRCL 21.22 ml/min Normal [facility] Comment on above: Performed By: #### L 503.6005, L500.4050, L100.0100 ####[facility] [address] [place], [address] EST GFR - AA 27 mL/min Low >60 [facility] Comment on above: Result Comment: Afri can [place] GFR Calc Performed By: #### L 503.6005, L500.4050, L100.0100 ####[facility] [address] [place], [address] GAP 8 Normal 5-15 [facility] Comment on above: Performed By: #### L 503.6005, L500.4050, L100.0100 ####[facility] [address] [place], [address] GFR/1.73 sq M.predicted among non-blacks MDRD (S/P/Bld) [Vol rate/Area] 23 mL/min/{1.73_m2} Low >60 [facility] Comment on above: Result Comment: Non- GFR Calc Performed By: #### L 503.6005, L500.4050, L100.0100 ####[facility] [address] [place], [address] Globulin (S) [Mass/Vol] 5.3 g/dL High 2.2-4.[address] [facility] Comment on above: Performed By: #### L 503.6005, L500.4050, L100.0100 ####[facility] [address] [place], [address] Glucose [Mass/Vol] 130 mg/dL High 74-106 [facility] Comment on above: Result Comment: Fast ing Glucose result greater than or equal to 126 mg/dLsuggests DIABETES MELLITUS per A.D.A. criteria. Performed By: #### L 503.6005, L500.4050, L100.0100 ####[facility] [address] [place], [address] Potassium [Moles/Vol] 3.7 mmol/L Normal 3.5-5.1 [facility] Comment on above: Performed By: #### L 503.6005, L500.4050, L100.0100 ####[facility] [address] [place], [address] Sodium [Moles/Vol] 136 mmol/L Normal 136-145 [facility] Comment on above: Performed By: #### L 503.6005, L500.4050, L100.0100 ####[facility] [address] [place], [address] T PROT 8.0 g/dL Normal 6.4-8.2 [facility] Comment on above: Performed By: #### L 503.6005, L500.4050, L100.0100 ####[facility] [address] [place], [address] Urea nitrogen [Mass/Vol] 27 mg/dL High 7-18 [facility] Comment on above: Performed By: #### L 503.6005, L500.4050, L100.0100 ####[facility] [address] [place], [address] Emergency Department Summary on 04-14-2024 Emergency Department Summary Normal [facility] Erythrocyte Sed Rateon 04-14 SED RATE 87 mm/hr High 0-20 [facility] Comment on above: Performed By: #### L 101.9900, L501.6710 ####[facility] [address] [place], [address] Foot min 3 Viewson 4 Foot min [address] [facility] H AND P Exam - Hospitaliston 04-14-2024 H&P Exam - Hospitalist Normal [facility] Lactic Acidon 04-14-2024 Lactate [Moles/Vol] 1.6 mmol/L Normal 0.4-1.9 [facility] Comment on above: Order Comment: Y Performed By: #### L 503.6005, L500.4050, L100.0100 ####[facility] [address] [place], [address] CNPNon 04-13-2024 CNPN Normal [facility] CNPNon 04-05-2024 CNPN Normal [facility] CNOVon 03-28-2024 CNOV Normal [facility] Comprehensive metabolic 2000 panelon 03-28-2024 Albumin [Mass/Vol] 3.2 g/dL Low 3.9-4.9 [facility] Comment on above: Order Comment: Speci men Type: BLOOD SPECIMENOrdering Facility: [facility] Address: [address] [place] [address] Performed By: #### 2 4323-8 ####[facility] LABCLIA [id number] [place] [address] [place] ALP [Catalytic activity/Vol] 65 U/L Normal 38-113 [facility] Comment on above: Order Comment: Speci men Type: BLOOD SPECIMENOrdering Facility: [facility] Address: [address] [place] [address] Performed By: #### 2 4323-8 ####[facility] LABCLIA [id number] [place] [address] [place] ALT [Catalytic activity/Vol] 10 U/L Normal 10-54 [facility] Comment on above: Order Comment: Speci men Type: BLOOD SPECIMENOrdering Facility: [facility] Address: [address] [place] [address] Performed By: #### 2 4323-8 ####[facility] LABCLIA [id number] [place] [id number] [place] Anion gap [Moles/Vol] 12 mmol/L Normal 8-15 [facility] Comment on above: Order Comment: Speci men Type: BLOOD SPECIMENOrdering Facility: [facility] Address: [address] [place], [place] [id number] Performed By: #### 2 4323-8 ####[facility] LABCLIA [id number] [place] [address] [place] [Catalytic activity/Vol] 12 U/L Low 14-40 [facility] Comment on above: Order Comment: Speci men Type: BLOOD SPECIMENOrdering Facility: [facility] Address: [address] [place] [address] Performed By: #### 2 4323-8 ####[facility] LABCLIA [id number] [place] [address] [place] Bilirubin [Mass/Vol] 0.2 mg/dL Normal 0.2-1.3 [facility] Comment on above: Order Comment: Speci men Type: BLOOD SPECIMENOrdering Facility: [facility] Address: [address] [place] [address] Performed By: #### 2 4323-8 ####[facility] LABCLIA [id number] [place] [address] [place] [place] Calcium [Mass/Vol] 8.9 mg/dL Normal 8.5-10.2 [facility] Comment on above: Order Comment: Speci men Type: BLOOD SPECIMENOrdering Facility: [facility] Address: [address] [place] [address] Performed By: #### 2 4323-8 ####[facility] LABCLIA [id number] [place] [id number] [place] Chloride [Moles/Vol] 93 mmol/L Low 98-107 [facility] Comment on above: Order Comment: Speci men Type: BLOOD SPECIMENOrdering Facility: [facility] Address: [address] [place], [place] [address] Performed By: #### 2 4323-8 ####[facility] LABCLIA [id number] [place] [address] [place] CO2 [Moles/Vol] 28 mmol/L Normal 22-30 [facility] Comment on above: Order Comment: Speci men Type: BLOOD SPECIMENOrdering Facility: [facility] Address: [address] [place] [address] Performed By: #### 2 4323-8 ####[facility] LABIA [id number] [place] [address] [place] Creatinine [Mass/Vol] 4.23 mg/dL High 0.73-1.22 [facility] Comment on above: Order Comment: Speci men Type: BLOOD SPECIMENOrdering Facility: [facility] Address: [address] [place] [address] Performed By: #### 2 4323-8 ####[facility] [id number] [place] [address] [place] Creatinine and Glomerular filtration rate.predicted panel (S/P/Bld) 13 mL/min/1.73m??? Low >=60 [facility] Comment on above: Order Comment: Speci men Type: BLOOD SPECIMENOrdering Facility: [facility] Address: [address] [place] [address] Result Comment: Tessa mated Glomerular Filtration Rate [...] actual GFR. Performed By: #### 2 4323-8 ####[facility] [id number] [place] [address] [place] Glucose [Mass/Vol] 371 mg/dL High 74-99 [facility] Comment on above: Order Comment: Speci men Type: BLOOD SPECIMENOrdering Facility: [facility] Address: [address] [place] [id number] Result Comment: The [place] [employer] (ADA) provides guidance for [...] Standards of Medical Care in Diabetes 2016, [place] [employer]. Diabetes Care. 2016.39(Suppl 1). Performed By: #### 2 4323-8 ####[facility] LABIA [id number] [place] [address] [place] Potassium [Moles/Vol] 5.0 mmol/L Normal 3.7-5.1 [facility] Comment on above: Order Comment: Speci men Type: BLOOD SPECIMENOrdering Facility: [facility] Address: [address] [place] [address] Performed By: #### 2 4323-8 ####[facility] LABIA [id number] [place] [address] [place] Protein [Mass/Vol] 6.5 g/dL Normal 6.3-8.0 [facility] Comment on above: Order Comment: Speci men Type: BLOOD SPECIMENOrdering Facility: [facility] Address: [address] [place] [address] Performed By: #### 2 4323-8 ####[facility] LABIA [id number] [place] [address] [place] Sodium [Moles/Vol] 133 mmol/L Low 136-144 [facility] Comment on above: Order Comment: Speci men Type: BLOOD SPECIMENOrdering Facility: [facility] Address: [address] [place] [address] Performed By: #### 2 4323-8 ####[facility] LABCLIA [id number] [place] [address] [place] Urea nitrogen [Mass/Vol] 37 mg/dL High 9-24 [facility] Comment on above: Order Comment: Speci men Type: BLOOD SPECIMENOrdering Facility: [facility] Address: [address] [place] [address] Performed By: #### 2 4323-8 ####[facility] LABCLIA [id number] [place] [address] [place] HbA1c (Bld)on 03-28-2024 Average glucose Estimated from glycated hemoglobin (Bld) [Mass/Vol] 206 mg/dL Normal [facility] Comment on above: Order Comment: Speci men Type: BLOOD SPECIMENOrdering Facility: [facility] Address: [address] [place] [address] Result Comment: eAG: (Estimated average glucose) is a calculated value from HgbA1c and is service center representative of the average blood glucose level in the last 2-3 month period. Performed By: #### 5 5454-3 ####[facility] LABCLIA [id number] [place] [address] [place] HbA1c (Bld) [Mass fraction] 8.8 % High 4.3-5.6 [facility] Comment on above: Order Comment: Speci men Type: BLOOD SPECIMENOrdering Facility: [facility] Address: [address] [place] [address] Result Comment: [place] Diabetes Association guidelines indicate that patients with HgbA1c in the range 5.7-6.4% are at increased risk for development of diabetes, and intervention by lifestyle modification may be beneficial. HgbA1c greater or equal to 6.5% is considered diagnostic of diabetes. Performed By: #### 5 5454-3 ####[facility] LABCLIA [id number] [place] [address] [place] CNOVon 01-06-2024 CNOV Normal [facility] Fox KORon 09-08-2023 Potassium [Moles/Vol] 3.7 mmol/L Normal 3.5-5.0 [facility] Comment on above: Performed By: #### K OR #### [facility] [address] [place] [address] LABORATORYOrdered By: Miguelina Ramirez on 09-08-2023 Blood Glucose Testing Reason Routine (09/08/23 2:30 PM) [facility] Work Phone: Glucose [Mass/Vol] 111 mg/dL Normal 82 - 115 mg/dL [facility] Work Phone: LABORATORYOrdered By: Nelli Gar on 09-08-2023 Potassium [Moles/Vol] 3.7 mmol/L Normal 3.5 - 5.0 mEq/L [facility] LABORATORYOrdered By: Kailey Sanchez on 09-08-2023 Glucose [Mass/Vol] 147 mg/dL High 82 - 115 mg/dL [facility] Work Phone: HEMOGLOBIN A1C (POC)on 12-06 HbA1c (Bld) [Mass fraction] 8.1 % Abnormal 4.2 - 5.6 % [facility] HEMOGLOBIN A1C (POC)on 09-06 HbA1c (Bld) [Mass fraction] 8.4 % Abnormal 4.2 - 5.6 % [facility] Comprehensive metabolic 2000 panelon 03-06-2022 Albumin [Mass/Vol] 3.9 g/dL 3.9 - 4.9 g/dL [facility] ALP [Catalytic activity/Vol] 56 U/L 38 - 113 U/L [facility] ALT [Catalytic activity/Vol] 17 U/L 10 - 54 U/L [facility] Anion gap [Moles/Vol] 13 mmol/L 9 - 18 mmol/L [facility] AST [Catalytic activity/Vol] 13 U/L Low 14 - 40 U/L [facility] Bilirubin [Mass/Vol] 0.4 mg/dL 0.2 - 1 .3 mg/dL [facility] Calcium [Mass/Vol] 9.1 mg/dL 8.5 - 10. 2 mg/dL [facility] Chloride [Moles/Vol] 95 mmol/L Low 97 - 10 5 mmol/L [facility] CO2 [Moles/Vol] 30 mmol/L 22 - 30 mmol/L [facility] Creatinine [Mass/Vol] 4.13 mg/dL High 0.73 - 1.22 mg/dL [facility] Estimated Glomerular Filtration Rate 14 mL/min/1.73m Low >=60 mL/min/1.73 m [facility] Glucose [Mass/Vol] 239 mg/dL High 74 - 99 mg/dL [facility] Potassium [Moles/Vol] 4.9 mmol/L 3.7 - 5.1 mmol/L [facility] Protein [Mass/Vol] 7.2 g/dL 6.3 - 8.0 g/dL [facility] Sodium [Moles/Vol] 138 mmol/L 136 - 144 mmol/L [facility] Urea nitrogen [Mass/Vol] 49 mg/dL High 9 - 24 mg/dL [facility] LIPID PANEL, NONFASTINGon Cholesterol [Mass/Vol] 146 mg/dL <200 mg/dL [facility] HDL Cholesterol, Nonfasting 46 mg/dL >39 mg/dL [facility] LDL Cholesterol, Nonfasting 89 mg/dL <100 mg/dL [facility] LDL/HDL Ratio, Nonfasting 1.93 mg/dL <2.54 mg/dL [facility] Non HDL Cholesterol, Nonfasting 100 mg/dL <130 mg/dL [facility] Total Chol/HDL Ratio, Nonfasting 3.17 mg/dL <5.10 mg/dL [facility] Triglycerides, Nonfasting 55 mg/dL <150 mg/dL [facility] VLDL Cholesterol, Nonfasting 11 mg/dL <30 mg/dL [facility] HbA1c (Bld)on 03-05-2022 Average glucose Estimated from glycated hemoglobin (Bld) [Mass/Vol] 209 mg/dL [facility] HbA1c (Bld) [Mass fraction] 8.9 % High 4.3 - 5.6 % [facility] Basophil percentageon 2021 Chloride [Moles/Vol] 103 mmol/L 98-107 [facility] Work Phone: Glucose [Mass/Vol] 263 mg/dL 74-106 [facility] Work Phone: Comment on above: Glucose result great er than or equal to 200 mg/dLsuggests DIABETES MELLITUS per A.D.A. criteria. Potassium [Moles/Vol] 4.3 mmol/L 3.5-5.1 [facility] Work Phone: [phone] Sodium [Moles/Vol] 138 mmol/L 136-145 [facility] Work Phone: [phone] WBC (Bld) [#/Vol] 8.1 10*3/uL 4.4-11.0 [facility] Work Phone: [phone] Blood erythrocytes count (nu mber/volume)on 11-06-2021 RBC (Bld) [#/Vol] 3.75 10*6/uL 4.6-6.2 [facility] Work Phone: [phone] Blood hemoglobin measurement (mass/volume)on 11-06-2021 Hemoglobin (Bld) [Mass/Vol] 11.4 g/dL 13.0-16.5 [facility] Work Phone: [phone] Blood platelet mean volumeon 11-06-2021 Platelet mean volume (Bld) [Entitic vol] 11.2 fL 6.2-12.0 [facility] Work Phone: [phone] Determination of erythrocyte mean corpuscular volume (MCV)on 11-06-2021 MCV (RBC) [Entitic vol] 94.9 fL 80-94 [facility] Work Phone: [phone] Hematocrit Auto (Bld) [Volum e fraction]on 11-06-2021 Hematocrit (Bld) [Volume fraction] 35.6 % 40-54 [facility] Work Phone: [phone] Laboratory - Chemistry and C hemistry - challengeon 11-06-2021 CO2 [Moles/Vol] 30.0 mmol/L 21.0-32.0 [facility] Work Phone: [phone] Urea nitrogen/Creatinine [Mass ratio] 12.6 mg/mg 10-20 [facility] Work Phone: [phone] Laboratory - Hematology and Cell countson 11-06-2021 Erythrocyte distribution width (RBC) [Entitic vol] 43.0 fL 35.1-43.9 [facility] Work Phone: [phone] Erythrocyte distribution width (RBC) [Ratio] 12.4 % 11.6-14.6 [facility] Work Phone: [phone] MCH (RBC) [Entitic mass] 30.4 pg 27.0-32.0 [facility] Work Phone: [phone] MCHC Auto (RBC) [Mass/Vol]on 11-06-2021 MCHC (RBC) [Mass/Vol] 32.0 g/dL 32-36 [facility] Work Phone: No Panel Informationon 11-06 Estimated Creatinine Clearance Calc 12.37 ml/min [facility] Work Phone: [phone] Estimated GFR (MDRD) Amer 17 mL/min >60 [facility] Work Phone: Comment on above: GFR Calc Estimated GFR (MDRD) Non-Af Amer 14 mL/min >60 [facility] Work Phone: Comment on above: Non- GFR Calc Platelets bldon 11-06-2021 Platelets (Bld) [#/Vol] 160 10*3/uL 150-450 [facility] Work Phone: [phone] Serum or plasma calcium lilli urement (mass/volume)on 11-06-2021 Calcium [Mass/Vol] 9.0 mg/dL 8.5-10.1 [facility] Work Phone: [phone] Serum or plasma creatinine m easurement (mass/volume)on 11-06-2021 Creatinine [Mass/Vol] 4.30 mg/dL 0.70-1.30 [facility] Work Phone: Comment on above: The validity of the calculated GFR & GFRAA in patients over 70 years has not been determined. Clinical correlation is essential. Serum or plasma urea nitroge n measurement (mass/volume)on 11-06-2021 Urea nitrogen [Mass/Vol] 54 mg/dL 7-18 [facility] Work Phone: [phone] Thin prep Papanicolaou smear with manual screeningon 11-06-2021 Thin prep Papanicolaou smear with manual screening 5 5-15 [facility] Work Phone: XR Foot - bilateral AP and L ateral and obliqueon 03-04-2021 IMPRESSION: No acute bony finding. Plantar spurs Telephone Ad Taker: NICHELLE Transcribe Date/Time: Mar 04 2021 12:13P Dictated by : FERNANDO JANE MD This examination was interpreted and the report reviewed and electronically signed by: FERNANDO JANE MD on Mar 04 2021 12:15PM [facility] DIVISION OF RADIOLOGY * * [...] these nonweightbearing views DIVISION OF RADIOLOGY Provider, [facility] - 03/04/2021 * * *Final Report* [...] IMPRESSION: No acute bony finding. Plantar spurs Telephone Ad Taker: NICHELLE Transcribe Date/Time: Mar 04 2021 12:13P Dictated by : FERNANDO JANE MD This examination was interpreted and the report reviewed and electronically signed by: FERNANDO JANE MD on Mar 04 2021 12:15PM EST [facility] Radiology Study observation (narrative) [facility] XR Foot - bilateral AP and L ateral and obliqueOrdered By: Ccf Provider on 03-04-2021 [facility] Office Visiton 10-27-2016 Documentation of current medications (procedure) Done Invalid Interpretation Code [facility] Work Phone: [phone] Fall risk assessment No Invalid Interpretation Code [facility] Work Phone: [phone] Protein mass conc Done [facility] Work Phone: [phone] Replaced Document: Eileen Desiree CG Observationson 10-27-2016 EKG QRS axis -23 deg [facility] Work Phone: [phone] electrocardiogram interpretation Possible atrial fibrillation - Nonspecific T-abnormality. ABNORMAL Invalid Interpretation Code [facility] Work Phone: [phone] GE use only - for [employer] import when terms are not otherwise specified 431 ms Invalid Interpretation Code [facility] Work Phone: [phone] Interpretation Possible atrial fibrillation - Nonspecific T-abnormality. ABNORMAL [facility] Work Phone: P [place] 1 deg [facility] Work Phone: P wave axis, electrocardiogram 1 deg Invalid Interpretation Code [facility] Work Phone: VA Interval 0 ms [facility] Work Phone: VA interval, electrocardiogram 0 ms Invalid Interpretation Code [facility] Work Phone: Pulse (Heart Rate) 69 /min Invalid Interpretation Code [facility] Work Phone: QRS axis, electrocardiogram -23 deg Invalid Interpretation Code [facility] Work Phone: QRS Duration 114 ms [facility] Work Phone: QRS duration, electrocardiogram 114 ms Invalid Interpretation Code [facility] Work Phone: QT Interval new path ms [facility] Work Phone: [phone] QT interval, electrocardiogram new path ms Invalid Interpretation Code [facility] Work Phone: [phone] QTc Liriano 431 ms [facility] Work Phone: [phone] T [place] 90 deg [facility] Work Phone: [phone] T wave axis, electrocardiogram 90 deg Invalid Interpretation Code [facility] Work Phone: [phone] Clinical Lists Update: 10-26-2016 Tobacco smoking status NHIS Never smoker [facility] Work Phone: [phone] Tobacco use CPHS Never smoker Invalid Interpretation Code [facility] Work Phone: [phone] Clinical Lists Update: 10-14-2016 Anion gap 14 mmol/L Invalid Interpretation Code [facility] Work Phone: [phone] Anion gap [Moles/Vol] 14 mmol/L [facility] Work Phone: [phone] Calcium 9.8 mg/dL Invalid Interpretation Code [facility] Work Phone: [phone] Chloride 97 mmol/L Invalid Interpretation Code [facility] Work Phone: [phone] CO2 25 mmol/L Invalid Interpretation Code [facility] Work Phone: [phone] CO2 (BldV) [Partial pressure] 25 mmol/L [facility] Work Phone: [phone] Creatinine 1.69 mg/dL High [facility] Work Phone: [phone] Glucose 264 mg/dL High [facility] Work Phone: [phone] Glucose [Mass/Vol] 264 mg/dL High [facility] Work Phone: [phone] Potassium 4.5 mmol/L Invalid Interpretation Code [facility] Work Phone: [phone] Sodium 136 mmol/L Invalid Interpretation Code [facility] Work Phone: [phone] Thyroid stimulating hormone (TSH) 1.29 u[iU]/mL Invalid Interpretation Code [facility] Work Phone: [phone] Urea nitrogen 21 mg/dL Invalid Interpretation Code [facility] Work Phone: [phone] 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 Nando Wiggins MD Work Phone: [facility] 01-29-2025 09:48-0400 Body temperature 97.9 [degF] Dr. Nando Wiggins MD Work Phone: [facility] 01-29-2025 09:48-0400 Diastolic blood pressure 59 mm[Hg] Dr. Nando Wiggins MD Work Phone: [facility] 01-29-2025 09:48-0400 Heart rate 60 /min Dr. Nando Wiggins MD Work Phone: [facility] 01-29-2025 09:48-0400 Respiratory rate 14 /min Dr. Nando Wiggins MD Work Phone: [facility] 01-29-2025 09:48-0400 SaO2% (BldA) [Mass fraction] 96 % Dr. Nando Wiggins MD Work Phone: [facility] 01-29-2025 09:48-0400 Systolic blood pressure 125 mm[Hg] Dr. Nando Wiggins MD Work Phone: [facility] 01-29-2025 05:26-0400 Body mass index (BMI) [Ratio] 30.4 kg/m2 Dr. Nando Wiggins MD Work Phone: [facility] 01-29-2025 05:26-0400 Body weight 96.[address] Nando Wiggins MD Work Phone: [facility] 01-27-2025 07:29-0400 Inhaled oxygen flow rate 3 L/min Dr. Nando Wiggins MD Work Phone: [facility] 01-26-2025 14:04-0400 Body height 177.[address] Nando Wiggins MD Work Phone: [facility] 01-25-2025 17:00-0400 Diastolic blood pressure 73 mm[Hg] Dr. Nando Wiggins MD Work Phone: [facility] 01-25-2025 17:00-0400 Heart rate 90 /min Dr. Nando Wiggins MD Work Phone: [facility] 01-25-2025 17:00-0400 Respiratory rate 16 /min Dr. Nando Wiggins MD Work Phone: [facility] 01-25-2025 17:00-0400 SaO2% (BldA) [Mass fraction] 90 % Dr. Nando Wiggins MD Work Phone: [facility] 01-25-2025 17:00-0400 Systolic blood pressure 125 mm[Hg] Dr. Nando Wiggins MD Work Phone: [facility] 01-25-2025 15:27-0400 Body height 177.[address] Nando Wiggins MD Work Phone: [facility] 01-25-2025 15:27-0400 Body mass index (BMI) [Ratio] 31.3 kg/m2 Dr. Nando Wiggins MD Work Phone: [facility] 01-25-2025 15:27-0400 Body temperature 97.5 [degF] Dr. Nando Wiggins MD Work Phone: [facility] 01-25-2025 15:27-0400 Body weight 99.[address] Nando Wgigins MD Work Phone: [facility] 11-27-2024 07:37-0400 SaO2% (BldA) [Mass fraction] 98 % HUSAM YAN [facility] Comment on above: Order Comment: Specimen Type: ARTERIAL B LOOD SPECIMENOrdering Facility: [facility] Address: [address] [place] [address] Performed By: #### A LLBG ####[facility] LABCLIA [id number] [place] [id number] [place] 11-26-2024 21:30-0400 SaO2% (BldA) [Mass fraction] 97 % HUSAM YAN [facility] Comment on above: Order Comment: Specimen Type: ARTERIAL B LOOD SPECIMENOrdering Facility: [facility] Address: [address] [place] [address] Performed By: #### A LLBG ####[facility] LABIA [id number] [address] [place] 11-26-2024 18:06-0400 SaO2% (BldA) [Mass fraction] 99 % HUSAM YAN [facility] Comment on above: Order Comment: Specimen Type: ARTERIAL B LOOD SPECIMENOrdering Facility: [facility] Address: [address] [place] [address] Performed By: #### A LLBG ####[facility] LABCLIA [id number] [place] [id number] [place] 11-26-2024 13:47-0400 SaO2% (BldA) [Mass fraction] 97 % HUSAM YAN [facility] Comment on above: Order Comment: Specimen Type: ARTERIAL B LOOD SPECIMENOrdering Facility: [facility] Address: [address] [place] [address] Performed By: #### A LLMG ####[facility] LABIA [id number] [address] [place] [address] [place] 11-26-2024 07:36-0400 SaO2% (BldA) [Mass fraction] 99 % HUSAM YAN [facility] Comment on above: Order Comment: Specimen Type: ARTERIAL B LOOD SPECIMENOrdering Facility: [facility] Address: [address] [place], [place] [address] Performed By: #### A LLBG ####[facility] LABCLIA [id number] [address] [address] [place] 11-26-2024 00:22-0400 SaO2% (BldA) [Mass fraction] 97 % HUSAM YAN [facility] Comment on above: Order Comment: Specimen Type: ARTERIAL B LOOD SPECIMENOrdering Facility: [facility] Address: [address] [place] [address] Performed By: #### A LLBG ####[facility] LABCLIA [id number] [place] [id number] [place] 11-25-2024 20:35-0400 SaO2% (BldA) [Mass fraction] 98 % HUSAM YAN [facility] Comment on above: Order Comment: Specimen Type: ARTERIAL B LOOD SPECIMENOrdering Facility: [facility] Address: [address] [place], [place] [address] Performed By: #### A LLBG ####[facility] LABIA [id number] [address] [address] [place] 11-25-2024 15:08-0400 SaO2% (BldA) [Mass fraction] 97 % HUSAM YAN [facility] Comment on above: Order Comment: Specimen Type: ARTERIAL B LOOD SPECIMENOrdering Facility: [facility] Address: [address] [place], [place] [address] Performed By: #### A LLBG ####[facility] LABIA [id number] [address] [address] [place] 11-25-2024 11:07-0400 SaO2% (BldA) [Mass fraction] 99 % HUSAM YAN [facility] Comment on above: Order Comment: Specimen Type: ARTERIAL B LOOD SPECIMENOrdering Facility: [facility] Address: [address] [place], [place] [address] Performed By: #### A LLBG ####[facility] LABCLIA [id number] [place] [id number] [place] [facility] 11-25-2024 08:20-0400 SaO2% (BldA) [Mass fraction] 97 % HUSAM YAN [facility] Comment on above: Order Comment: Specimen Type: ARTERIAL B LOOD SPECIMENOrdering Facility: [facility] Address: [address] [place] [address] Performed By: #### A LLBG ####[facility] LABIA [id number] [place] [id number] [facility] 11-25-2024 00:43-0400 SaO2% (BldA) [Mass fraction] 92 % HUSAM YAN [facility] Comment on above: Order Comment: Specimen Type: ARTERIAL B LOOD SPECIMENOrdering Facility: [facility] Address: [address] [place] [address] Performed By: #### A LLBG ####[facility] LABIA [id number] [place] [id number] [facility] 11-24-2024 16:34-0400 SaO2% (BldA) [Mass fraction] 94 % HUSAM YAN [facility] Comment on above: Order Comment: Specimen Type: ARTERIAL B LOOD SPECIMENOrdering Facility: [facility] Address: [address] [place] [address] Performed By: #### A LLBG ####[facility] LABIA [id number] [address] [address] [facility] 11-24-2024 08:23-0400 SaO2% (BldA) [Mass fraction] 96 % HUSAM YAN [facility] Comment on above: Order Comment: Specimen Type: ARTERIAL B LOOD SPECIMENOrdering Facility: [facility] Address: [address] [place], [place] [address] Performed By: #### A LLBG ####[facility] LABCLIA [id number] [address] [address] [facility] 11-24-2024 06:44-0400 SaO2% (BldA) [Mass fraction] 97 % HUSAM YAN [facility] Comment on above: Order Comment: Specimen Type: ARTERIAL B LOOD SPECIMENOrdering Facility: [facility] Address: [address] [place], [place] [id number] Performed By: #### A LLBG ####[facility] LABCLIA [id number] [address] [address] [place] 11-24-2024 00:29-0400 SaO2% (BldA) [Mass fraction] 97 % HUSAM YAN [facility] Comment on above: Order Comment: Specimen Type: ARTERIAL B LOOD SPECIMENOrdering Facility: [facility] Address: [address] [place], [place] [id number] Performed By: #### A LLBG ####[facility] LABCLIA [id number] [address] [address] [place] 11-23-2024 19:51-0400 SaO2% (BldA) [Mass fraction] 96 % Dr. Nando Wiggins MD Work Phone: [facility] Comment on above: Order Comment: Specimen Type: ARTERIAL B LOOD SPECIMENOrdering Facility: [facility] Address: [address] [place], [place] [id number] Performed By: #### A LLBG ####[facility] LABCLIA [id number] [address] [address] [place] 11-23-2024 14:00-0400 Diastolic blood pressure 55 mm[Hg] Dr. Nando Wiggins MD Work Phone: [facility] 11-23-2024 14:00-0400 Heart rate 30 /min Dr. Nando Wiggins MD Work Phone: [facility] 11-23-2024 14:00-0400 Respiratory rate 18 /min Dr. Nando Wiggins MD Work Phone: [facility] 11-23-2024 14:00-0400 Systolic blood pressure 120 mm[Hg] Dr. Nando Wiggins MD Work Phone: [facility] 11-22-2024 21:07-0400 Body temperature 97.8 [degF] Dr. Nando Wiggins MD Work Phone: [facility] 11-22-2024 08:46-0400 Body height 170.[address] Nando Wiggins MD Work Phone: [facility] 11-22-2024 08:46-0400 Body mass index (BMI) [Ratio] 34.7 kg/m2 Dr. Nando Wiggins MD Work Phone: [facility] 11-22-2024 08:46-0400 Body weight 100.[address] Nando Wiggins MD Work Phone: [facility] 11-09-2024 03:00-0400 Diastolic blood pressure 52 mm[Hg] Dr. Nando Wiggins MD Work Phone: [facility] 11-09-2024 03:00-0400 Heart rate 52 /min Dr. Nando Wiggins MD Work Phone: [facility] 11-09-2024 03:00-0400 SaO2% (BldA) [Mass fraction] 96 % Dr. Nando Wiggins MD Work Phone: [facility] 11-09-2024 03:00-0400 Systolic blood pressure 126 mm[Hg] Dr. Nando Wiggins MD Work Phone: [facility] 11-08-2024 22:11-0400 Body temperature 97.6 [degF] Dr. Nando Wiggins MD Work Phone: [facility] 11-08-2024 22:11-0400 Respiratory rate 18 /min Dr. Nando Wiggins MD Work Phone: [facility] 11-08-2024 19:36-0400 Body height 170.[address] Nando Wiggins MD Work Phone: [facility] 11-08-2024 19:36-0400 Body mass index (BMI) [Ratio] 32.5 kg/m2 Dr. Nando Wiggins MD Work Phone: [facility] 11-08-2024 19:36-0400 Body weight 94.[address] Nando Wiggins MD Work Phone: [facility] 10-29-2024 06:52-0400 Body mass index (BMI) [Ratio] 32.5 kg/m2 Dr. Nando Wiggins MD Work Phone: [facility] 10-29-2024 06:52-0400 Body weight 94.[address] Nando Wiggins MD Work Phone: [facility] 10-29-2024 06:52-0400 Diastolic blood pressure 65 mm[Hg] Dr. Nando Wiggins MD Work Phone: [facility] 10-29-2024 06:52-0400 Heart rate 54 /min Dr. Nando Wiggins MD Work Phone: [facility] 10-29-2024 06:52-0400 Respiratory rate 18 /min Dr. Nando Wiggins MD Work Phone: [facility] 10-29-2024 06:52-0400 SaO2% (BldA) [Mass fraction] 92 % Dr. Nando Wiggins MD Work Phone: [facility] 10-29-2024 06:52-0400 Systolic blood pressure 129 mm[Hg] Dr. Nando Wiggins MD Work Phone: [facility] 10-17-2024 10:25-0400 Body temperature 98.6 [degF] Dr. Jean Yan MD Work Phone: [facility] 10-17-2024 10:25-0400 Diastolic blood pressure 72 mm[Hg] Dr. Jean Yan MD Work Phone: [facility] 10-17-2024 10:25-0400 Heart rate 56 /min Dr. Jean Yan MD Work Phone: [facility] 10-17-2024 10:25-0400 Respiratory rate 16 /min Dr. Jean Yan MD Work Phone: [facility] 10-17-2024 10:25-0400 SaO2% (BldA) [Mass fraction] 93 % Dr. Jean Yan MD Work Phone: [facility] 10-17-2024 10:25-0400 Systolic blood pressure 135 mm[Hg] Dr. Jean Yan MD Work Phone: [facility] 10-03-2024 09:08-0400 Body temperature 98 [degF] Dr. Jean Yan MD Work Phone: [facility] 10-03-2024 09:08-0400 Diastolic blood pressure 54 mm[Hg] Dr. Jean Yan MD Work Phone: [facility] 10-03-2024 09:08-0400 Heart rate 48 /min Dr. Jean Yan MD Work Phone: [facility] 10-03-2024 09:08-0400 Respiratory rate 14 /min Dr. Jean Yan MD Work Phone: [facility] 10-03-2024 09:08-0400 SaO2% (BldA) [Mass fraction] 94 % Dr. Jean Yan MD Work Phone: 0(947)609-439634 [place] [address] 10-03-2024 09:08-0400 Systolic blood pressure 132 mm[Hg] Dr. Jean Yan MD Work Phone: 8(862)506-531834 [place] [address] 09-24-2024 10:09-0400 Body mass index (BMI) [Ratio] 31.9 kg/m2 Dr. Jean Yan MD Work Phone: 2(451)139-542034 [place] [address] 09-24-2024 10:09-0400 Body temperature 96 [degF] Dr. Jean Yan MD Work Phone: 5(544)796-541934 [place] [address] 09-24-2024 10:09-0400 Diastolic blood pressure 40 mm[Hg] Dr. Jean Yan MD Work Phone: 0(308)173-202734 [place] [address] 09-24-2024 10:09-0400 Heart rate 44 /min Dr. Jean Yan MD Work Phone: 4(425)471-624234 [place] [address] 09-24-2024 10:09-0400 Respiratory rate 16 /min Dr. Jean Yan MD Work Phone: 0(167)907-969534 [place] [address] 09-24-2024 10:09-0400 Systolic blood pressure 121 mm[Hg] Dr. Jean Yan MD Work Phone: 3(883)861-758634 [place] [address] 09-20-2024 00:41-0400 Body weight 92.[address] Jean Yan MD Work Phone: 7(840)110-287534 [place] [address] 09-04-2024 12:16-0400 Body mass index (BMI) [Ratio] 29.9 kg/m2 Dr. Jean Yan MD Work Phone: 3(783)120-490934 [place] [address] 09-04-2024 12:16-0400 Body temperature 97.2 [degF] Dr. Jean Yan MD Work Phone: 1(199)741-013834 [place] [address] 09-04-2024 12:16-0400 Body weight 86.[address] Jean Yan MD Work Phone: 6(471)393-796734 [place] [address] 09-04-2024 12:16-0400 Diastolic blood pressure 59 mm[Hg] Dr. Jean Yan MD Work Phone: 8(070)939-704934 [place] [address] 09-04-2024 12:16-0400 Heart rate 53 /min Dr. Jean Yan MD Work Phone: 7(359)111-029734 [place] [address] 09-04-2024 12:16-0400 Respiratory rate 14 /min Dr. Jean Yan MD Work Phone: 1(020)267-104334 [place] [address] 09-04-2024 12:16-0400 SaO2% (BldA) [Mass fraction] 96 % Dr. Jean Yan MD Work Phone: 7(366)975-820334 [place] [address] 09-04-2024 12:16-0400 Systolic blood pressure 108 mm[Hg] Dr. Jean Yan MD Work Phone: 8(169)532-929434 [place] [address] 09-03-2024 14:19-0400 Body height 170.[address] Jean Yan MD Work Phone: 1(496)711-049834 [place] [address] 08-30-2024 21:37-0400 Inhaled oxygen flow rate 2 L/min Dr. Jean Yan MD Work Phone: 5(039)287-939034 [place] [address] 08-27-2024 08:54-0400 Body mass index (BMI) [Ratio] 31.9 kg/m2 Dr. Jean Yan MD Work Phone: 1(308)170-816234 [place] [address] 08-27-2024 08:54-0400 Diastolic blood pressure 61 mm[Hg] Dr. Jean Yan MD Work Phone: 0(264)050-881834 [place] [address] 08-27-2024 08:54-0400 Heart rate 66 /min Dr. Jean Yan MD Work Phone: 7(328)070-029534 [place] [address] 08-27-2024 08:54-0400 Respiratory rate 16 /min Dr. Jean Yan MD Work Phone: 1(878)360-490734 [place] [address] 08-27-2024 08:54-0400 Systolic blood pressure 100 mm[Hg] Dr. Jean Yan MD Work Phone: 0(021)417-592434 [place] [address] 08-21-2024 00:56-0400 Body temperature 97.4 [degF] Dr. Jean Yan MD Work Phone: 1(050)207-885934 [place] [address] 08-21-2024 00:56-0400 Body weight 92.[address] Jean Yan MD Work Phone: 0(713)380-561234 [place] [address] 08-20-2024 10:36-0400 Body mass index (BMI) [Ratio] 31.9 kg/m2 Dr. Jean Yan MD Work Phone: 1(913)970-389934 [place] [address] 08-20-2024 10:36-0400 Body temperature 97.4 [degF] Dr. Jean Yan MD Work Phone: 4(431)264-568834 [place] [address] 08-20-2024 10:36-0400 Diastolic blood pressure 39 mm[Hg] Dr. Jean Yan MD Work Phone: 2(069)020-317734 [place] [address] 08-20-2024 10:36-0400 Heart rate 42 /min Dr. Jean Yan MD Work Phone: 0(473)191-836934 [place] [address] 08-20-2024 10:36-0400 Respiratory rate 16 /min Dr. Jean Yan MD Work Phone: 9(206)274-263834 [place] [address] 08-20-2024 10:36-0400 Systolic blood pressure 123 mm[Hg] Dr. Jean Yan MD Work Phone: 9(445)679-412834 [place] [address] 08-01-2024 19:00-0400 Diastolic blood pressure 46 mm[Hg] Dr. Jean Yan MD Work Phone: 6(655)384-028634 [place] [address] 08-01-2024 19:00-0400 Heart rate 47 /min Dr. Jean Yan MD Work Phone: 8(080)744-931234 [place] [address] 08-01-2024 19:00-0400 Respiratory rate 18 /min Dr. Jean Yan MD Work Phone: 7(071)819-340334 [place] [address] 08-01-2024 19:00-0400 SaO2% (BldA) [Mass fraction] 98 % Dr. Jean Yan MD Work Phone: 3(740)485-286834 [place] [address] 08-01-2024 19:00-0400 Systolic blood pressure 113 mm[Hg] Dr. Jean Yan MD Work Phone: 1(070)981-129934 [place] [address] 08-01-2024 15:00-0400 Body temperature 98.1 [degF] Dr. Jean Yan MD Work Phone: 2(740)214-971034 [place] [address] 07-21-2024 02:32-0500 Body weight 92.[address] Jean Yan MD Work Phone: 3(332)809-532234 [place] [address] 07-20-2024 20:26-0500 Body temperature 98.1 [degF] Dr. Jean Yan MD Work Phone: 7(497)235-252734 [place] [address] 07-20-2024 20:26-0500 Diastolic blood pressure 47 mm[Hg] Dr. Jean Yan MD Work Phone: 7(520)111-082834 [place] [address] 07-20-2024 20:26-0500 Heart rate 56 /min Dr. Jean Yan MD Work Phone: 3(846)395-546834 [place] [address] 07-20-2024 20:26-0500 Respiratory rate 18 /min Dr. Jean Yan MD Work Phone: 4(922)809-805034 [place] [address] 07-20-2024 20:26-0500 SaO2% (BldA) [Mass fraction] 97 % Dr. Jean Yan MD Work Phone: 0(678)689-504534 [place] [address] 07-20-2024 20:26-0500 Systolic blood pressure 143 mm[Hg] Dr. Jean Yan MD Work Phone: 3(019)175-196534 [place] [address] 07-20-2024 05:46-0500 Body mass index (BMI) [Ratio] 31.8 kg/m2 Dr. Jean Yan MD Work Phone: 7(658)151-640134 [place] [address] 07-20-2024 05:46-0500 Body weight 92.[address] Jean Yan MD Work Phone: 0(400)937-559208 [place] [address] 07-16-2024 15:18-0500 Inhaled oxygen flow rate 2 L/min Dr. Jean Yan MD Work Phone: 0(488)338-443134 [place] [address] 07-11-2024 10:27-0500 Body mass index (BMI) [Ratio] 31.9 kg/m2 Dr. Jean Yan MD Work Phone: 7(283)335-103434 [place] [address] 07-11-2024 10:27-0500 Body temperature 96.7 [degF] Dr. Jean Yan MD Work Phone: 1(822)266-088434 [place] [address] 07-11-2024 10:27-0500 Diastolic blood pressure 45 mm[Hg] Dr. Jean Yan MD Work Phone: 0(559)119-028234 [place] [address] 07-11-2024 10:27-0500 Heart rate 60 /min Dr. Jean Yan MD Work Phone: 3(924)712-284534 [place] [address] 07-11-2024 10:27-0500 Respiratory rate 18 /min Dr. Jean Yan MD Work Phone: 3(356)332-646134 [place] [address] 07-11-2024 10:27-0500 Systolic blood pressure 119 mm[Hg] Dr. Jean Yan MD Work Phone: 1(156)643-751634 [place] [address] 07-07-2024 22:04-0500 Body temperature 97.8 [degF] Dr. Jean Yan MD Work Phone: 1(588)159-193534 [place] [address] 07-07-2024 22:04-0500 Diastolic blood pressure 61 mm[Hg] Dr. Jean Yan MD Work Phone: 2(674)345-467334 [place] [address] 07-07-2024 22:04-0500 Heart rate 74 /min Dr. Jean Yan MD Work Phone: 9(840)290-644434 [place] [address] 07-07-2024 22:04-0500 Respiratory rate 19 /min Dr. Jean Yan MD Work Phone: 0(925)077-266934 [place] [address] 07-07-2024 22:04-0500 SaO2% (BldA) [Mass fraction] 94 % Dr. Jean Yan MD Work Phone: 0(353)317-357134 [place] [address] 07-07-2024 22:04-0500 Systolic blood pressure 119 mm[Hg] Dr. Jean Yan MD Work Phone: 5(913)174-929934 [place] [address] 07-07-2024 17:35-0500 Body mass index (BMI) [Ratio] 33.7 kg/m2 Dr. Jean Yan MD Work Phone: 8(702)057-103534 [place] [address] 07-07-2024 17:35-0500 Body weight 97.[address] Jean Yan MD Work Phone: 6(603)711-157134 [place] [address] 07-03-2024 17:24-0500 Body temperature 97.8 [degF] Dr. Jean Yan MD Work Phone: 7(233)476-196334 [place] [address] 07-03-2024 17:24-0500 Diastolic blood pressure 43 mm[Hg] Dr. Jean Yan MD Work Phone: 5(253)598-161534 [place] [address] 07-03-2024 17:24-0500 Heart rate 59 /min Dr. Jean Yan MD Work Phone: 0(581)001-631034 [place] [address] 07-03-2024 17:24-0500 Respiratory rate 16 /min Dr. Jean Yan MD Work Phone: 1(883)145-761034 [place] [address] 07-03-2024 17:24-0500 SaO2% (BldA) [Mass fraction] 98 % Dr. Jean aYn MD Work Phone: 2(876)130-772234 [place] [address] 07-03-2024 17:24-0500 Systolic blood pressure 109 mm[Hg] Dr. Jean Yan MD Work Phone: 0(647)398-488334 [place] [address] 07-03-2024 12:45-0500 Body mass index (BMI) [Ratio] 37.7 kg/m2 Dr. Jean Yan MD Work Phone: 9(728)811-094434 [place] [address] 07-03-2024 12:45-0500 Body weight 109.[address] Jean Yan MD Work Phone: 1(227)154-334134 [place] [address] 07-02-2024 20:15-0500 Body temperature 98 [degF] Dr. Jean Yan MD Work Phone: 3(411)192-267234 [place] [address] 07-02-2024 20:15-0500 Diastolic blood pressure 47 mm[Hg] Dr. Jean Yan MD Work Phone: 0(864)114-768934 [place] [address] 07-02-2024 20:15-0500 Heart rate 56 /min Dr. Jean Yan MD Work Phone: 2(921)912-752734 [place] [address] 07-02-2024 20:15-0500 Respiratory rate 18 /min Dr. Jean Yan MD Work Phone: 3(069)434-220834 [place] [address] 07-02-2024 20:15-0500 SaO2% (BldA) [Mass fraction] 97 % Dr. Jean Yan MD Work Phone: 1(450)402-039834 [place] [address] 07-02-2024 20:15-0500 Systolic blood pressure 115 mm[Hg] Dr. Jean Yan MD Work Phone: 7(371)134-482934 [place] [address] 07-02-2024 16:22-0500 Body mass index (BMI) [Ratio] 32.5 kg/m2 Dr. Jean Yan MD Work Phone: 6(131)432-788734 [place] [address] 07-02-2024 16:22-0500 Body weight 94.[address] Jean Yan MD Work Phone: 0(021)692-140834 [place] [address] 06-23-2024 02:27-0500 Body weight 92.[address] Jean Yan MD Work Phone: 9(592)058-182434 [place] [address] 06-20-2024 08:47-0500 Body temperature 97.5 [degF] Dr. Jean Yan MD Work Phone: 3(062)296-510434 [place] [address] 06-20-2024 08:47-0500 Body weight 96.[address] Jean Yan MD Work Phone: 4(714)705-261134 [place] [address] 06-20-2024 08:47-0500 Diastolic blood pressure 55 mm[Hg] Dr. Jean Yan MD Work Phone: 8(566)888-246034 [place] [address] 06-20-2024 08:47-0500 Heart rate 57 /min Dr. Jean Yan MD Work Phone: 9(444)241-008734 [place] [address] 06-20-2024 08:47-0500 Respiratory rate 14 /min Dr. Jean Yan MD Work Phone: 1(622)810-892034 [place] [address] 06-20-2024 08:47-0500 Systolic blood pressure 135 mm[Hg] Dr. Jean Yan MD Work Phone: 0(649)726-839134 [place] [address] 06-19-2024 11:43-0500 Body mass index (BMI) [Ratio] 31.9 kg/m2 Dr. Jean Yan MD Work Phone: 6(366)644-599234 [place] [address] 06-19-2024 11:43-0500 Respiratory rate 18 /min Dr. Jean Yan MD Work Phone: 3(942)472-410834 [place] [address] 06-12-2024 11:21-0500 Body temperature 96.7 [degF] Dr. Jean Yan MD Work Phone: 7(645)256-801534 [place] [address] 06-06-2024 10:00-0500 Body temperature 97 [degF] Dr. Jean Yan MD Work Phone: 2(427)124-448934 [place] [address] 06-06-2024 10:00-0500 Diastolic blood pressure 67 mm[Hg] Dr. Jean Yan MD Work Phone: 1(276)221-814434 [place] [address] 06-06-2024 10:00-0500 Heart rate 84 /min Dr. Jean Yan MD Work Phone: 8(724)898-029134 [place] [address] 06-06-2024 10:00-0500 Respiratory rate 16 /min Dr. Jean Yan MD Work Phone: 3(578)227-515434 [place] [address] 06-06-2024 10:00-0500 SaO2% (BldA) [Mass fraction] 95 % Dr. Jean aYn MD Work Phone: [facility] 06-06-2024 10:00-0500 Systolic blood pressure 101 mm[Hg] Dr. Jean Yan MD Work Phone: 8(823)992-466308 [place] [address] 06-06-2024 06:39-0500 Body mass index (BMI) [Ratio] 33.6 kg/m2 Dr. Jean Yan MD Work Phone: 7(174)812-105634 [place] [address] 06-06-2024 06:39-0500 Body weight 97.[address] Jean Yan MD Work Phone: 7(625)173-995134 [place] [address] 05-29-2024 10:49-0500 Diastolic blood pressure 31 mm[Hg] Dr. Jean Yan MD Work Phone: 5(943)648-348034 [place] [address] 05-29-2024 10:49-0500 Heart rate 58 /min Dr. Jean Yan MD Work Phone: 6(782)240-635134 [place] [address] 05-29-2024 10:49-0500 Systolic blood pressure 111 mm[Hg] Dr. Jean Yan MD Work Phone: 9(011)968-224108 [place] [address] 05-23-2024 00:51-0500 Body weight 92.[address] Jean Yan MD Work Phone: [facility] 04-14-2024 10:11-0500 Body temperature 99.1 [degF] Usman Moomaw [employer] DEVELOPER.INFORMATICS PHYSICIAN LIAISON Work Phone: [facility] 04-14-2024 10:11-0500 Diastolic blood pressure 60 mm[Hg] Usman Moomaw [employer] DEVELOPER.INFORMATICS PHYSICIAN LIAISON Work Phone: [facility] 04-14-2024 10:11-0500 Heart rate 76 /min Usman Moomaw [employer] DEVELOPER.INFORMATICS PHYSICIAN LIAISON Work Phone: [facility] 04-14-2024 10:11-0500 Respiratory rate 16 /min Usman Moomaw [employer] DEVELOPER.INFORMATICS PHYSICIAN LIAISON Work Phone: [facility] 04-14-2024 10:11-0500 SaO2% (BldA) [Mass fraction] 94 % Usman Moomaw [employer] DEVELOPER.INFORMATICS PHYSICIAN LIAISON Work Phone: [facility] 04-14-2024 10:11-0500 Systolic blood pressure 124 mm[Hg] Usman Moomaw [employer] DEVELOPER.INFORMATICS PHYSICIAN LIAISON Work Phone: [facility] 03-28-2024 12:54-0500 Body mass index (BMI) [Ratio] 34.25 kg/m2 Lauren Podlogar [employer] DEVELOPER.INFORMATICS PHYSICIAN LIAISON Work Phone: [facility] 03-28-2024 12:54-0500 Body weight 99.2 kg Luaren Podlogar [employer] DEVELOPER.INFORMATICS PHYSICIAN LIAISON Work Phone: [facility] 03-28-2024 12:54-0500 Diastolic blood pressure 48 mm[Hg] Lauren Podlogar [employer] DEVELOPER.INFORMATICS PHYSICIAN LIAISON Work Phone: [facility] 03-28-2024 12:54-0500 Heart rate 47 /min Lauren Podlogar [employer] DEVELOPER.INFORMATICS PHYSICIAN LIAISON Work Phone: [facility] 03-28-2024 12:54-0500 Respiratory rate 18 /min Lauren Podlogar [employer] DEVELOPER.INFORMATICS PHYSICIAN LIAISON Work Phone: [facility] 03-28-2024 12:54-0500 SaO2% (BldA) [Mass fraction] 98 % Lauren Podlogar [employer] DEVELOPER.INFORMATICS PHYSICIAN LIAISON Work Phone: [facility] 03-28-2024 12:54-0500 Systolic blood pressure 118 mm[Hg] Lauren Podlogar [employer] DEVELOPER.INFORMATICS PHYSICIAN LIAISON Work Phone: [facility] 01-06-2024 09:36-0400 Body mass index (BMI) [Ratio] 33.01 kg/m2 Lauren Podlogar [employer] DEVELOPER.INFORMATICS PHYSICIAN LIAISON Work Phone: [facility] 01-06-2024 09:36-0400 Body weight 95.6 kg Lauren Podlogar [employer] DEVELOPER.INFORMATICS PHYSICIAN LIAISON Work Phone: [facility] 01-06-2024 09:36-0400 Diastolic blood pressure 58 mm[Hg] Lauren Podlogar [employer] DEVELOPER.INFORMATICS PHYSICIAN LIAISON Work Phone: [facility] 01-06-2024 09:36-0400 Heart rate 58 /min Lauren Podlogar [employer] DEVELOPER.INFORMATICS PHYSICIAN LIAISON Work Phone: [facility] 01-06-2024 09:36-0400 Respiratory rate 16 /min Lauren Podlogar [employer] DEVELOPER.INFORMATICS PHYSICIAN LIAISON Work Phone: [facility] 01-06-2024 09:36-0400 SaO2% (BldA) [Mass fraction] 97 % Lauren Podlogar [employer] DEVELOPER.INFORMATICS PHYSICIAN LIAISON Work Phone: [facility] 01-06-2024 09:36-0400 Systolic blood pressure 128 mm[Hg] Lauren Podlogar [employer] DEVELOPER.INFORMATICS PHYSICIAN LIAISON Work Phone: [facility] 09-08-2023 14:30-0400 Body temperature 96.62 [degF] JEAN PIERRE ARREAGA MD [address] [place] [address] 09-08-2023 14:30-0400 Diastolic Blood Pressure Non-Invasive 50 mm[Hg] JEAN PIERRE ARREAGA MD [address] [place] [address] 09-08-2023 14:30-0400 Heart rate 53 /min JEAN PIERRE ARREAGA MD [address] [place] [address] 09-08-2023 14:30-0400 Respiratory rate 16 /min JEAN PIERRE ARREAGA MD [address] [place] [address] 09-08-2023 14:30-0400 Systolic Blood Pressure Non-Invasive 140 mm[Hg] JEAN PIERRE ARREAGA MD [address] [place] [address] 09-08-2023 14:13-0400 Body temperature 96.98 [degF] JEAN PIERRE ARREAGA MD [address] [place] [address] 09-08-2023 14:13-0400 Diastolic Blood Pressure Non-Invasive 49 mm[Hg] JEAN PIERRE ARREAGA MD [address] [place] [address] 09-08-2023 14:13-0400 Heart rate 51 /min JEAN PIERRE ARREAGA MD [facility] 09-08-2023 14:13-0400 Mean blood pressure 74 mm[Hg] JEAN PIERRE ARREAGA MD [facility] 09-08-2023 14:13-0400 Respiratory rate 16 /min JEAN PIERRE ARREAGA MD [address] [place] [address] 09-08-2023 14:13-0400 Systolic Blood Pressure Non-Invasive 134 mm[Hg] JEAN PIERRE ARREAGA MD [address] [place] [address] 09-08-2023 13:58-0400 Diastolic Blood Pressure Non-Invasive 49 mm[Hg] JEAN PIERRE ARREAGA MD [address] [place] [address] 09-08-2023 13:58-0400 Heart rate 45 /min JEAN PIERRE ARREAGA MD [address] [place] [address] 09-08-2023 13:58-0400 Mean blood pressure 74 mm[Hg] JEAN PIERRE ARREAGA MD [address] [place] [address] 09-08-2023 13:58-0400 Respiratory rate 16 /min JEAN PIERRE ARREAGA MD [address] [place] [address] 09-08-2023 13:58-0400 Systolic Blood Pressure Non-Invasive 130 mm[Hg] JEAN PIERRE ARREAGA MD [facility] 09-08-2023 13:43-0400 Body temperature 96.98 [degF] JEAN PIERRE ARREAGA MD [address] [place] [address] 09-08-2023 13:43-0400 Heart rate 44 /min JEAN PIERRE ARREAGA MD [address] [place] [address] 09-08-2023 13:43-0400 Mean blood pressure 73 mm[Hg] JEAN PIERRE ARREAGA MD [facility] 09-08-2023 13:35-0400 Body temperature 95.05 [degF] JEAN PIERRE ARREAGA MD [facility] 09-08-2023 13:35-0400 Respiratory Rate - Anes 23 br/min JEAN PIERRE ARREAGA MD [facility] 09-08-2023 13:30-0400 Body temperature 94.95 [degF] JEAN PIERRE ARREAGA MD [facility] 09-08-2023 13:30-0400 Respiratory Rate - Anes 21 br/min JEAN PIERRE ARREAAG MD [facility] 09-08-2023 13:25-0400 Body temperature 94.75 [degF] JEAN PIERRE ARREAGA MD [facility] 09-08-2023 13:25-0400 Respiratory Rate - Anes 11 br/min JEAN PIERRE ARREAGA MD [facility] 09-08-2023 11:18-0400 Body height 170.2 cm JEAN PIERRE ARREAGA MD [facility] 09-08-2023 11:18-0400 Body weight 98.7 kg JEAN PIERRE ARREAGA MD [facility] 09-08-2023 10:55-0400 Heart rate 56 /min JEAN PIERRE ARREAGA MD [facility] 12-06-2022 09:18-0400 Body weight 97.98 kg Lauren Podlogar COGNOS DEVELOPER.INFORMATICS PHYSICIAN LIAISON Work Phone: [facility] 12-06-2022 09:18-0400 Diastolic blood pressure 60 mm[Hg] Lauren Podlogar COGNOS DEVELOPER.INFORMATICS PHYSICIAN LIAISON Work Phone: [facility] 12-06-2022 09:18-0400 Heart rate 50 /min Lauren Podlogar COGNOS DEVELOPER.INFORMATICS PHYSICIAN LIAISON Work Phone: [facility] 12-06-2022 09:18-0400 Respiratory rate 16 /min Lauren Podlogar COGNOS DEVELOPER.INFORMATICS PHYSICIAN LIAISON Work Phone: [facility] 12-06-2022 09:18-0400 SaO2% (BldA) [Mass fraction] 96 % Lauren Podlogar COGNOS DEVELOPER.INFORMATICS PHYSICIAN LIAISON Work Phone: [facility] 12-06-2022 09:18-0400 Systolic blood pressure 128 mm[Hg] Lauren Podlogar COGNOS DEVELOPER.INFORMATICS PHYSICIAN LIAISON Work Phone: [facility] 09-06-2022 09:54-0400 Body weight 99.52 kg Lauren Podlogar COGNOS DEVELOPER.INFORMATICS PHYSICIAN LIAISON Work Phone: [facility] 09-06-2022 09:54-0400 Diastolic blood pressure 62 mm[Hg] Lauren Podlogar COGNOS DEVELOPER.INFORMATICS PHYSICIAN LIAISON Work Phone: [facility] 09-06-2022 09:54-0400 Heart rate 58 /min Lauren Podlogar COGNOS DEVELOPER.INFORMATICS PHYSICIAN LIAISON Work Phone: [facility] 09-06-2022 09:54-0400 Respiratory rate 18 /min Lauren Podlogar COGNOS DEVELOPER.INFORMATICS PHYSICIAN LIAISON Work Phone: [facility] 09-06-2022 09:54-0400 SaO2% (BldA) [Mass fraction] 93 % Lauren Podlogar COGNOS DEVELOPER.INFORMATICS PHYSICIAN LIAISON Work Phone: [facility] 09-06-2022 09:54-0400 Systolic blood pressure 138 mm[Hg] Lauren Podlogar COGNOS DEVELOPER.INFORMATICS PHYSICIAN LIAISON Work Phone: [facility] 06-07-2022 11:12-0500 Diastolic blood pressure 62 mm[Hg] Husam Yan MD Work Phone: [facility] 06-07-2022 11:12-0500 Systolic blood pressure 144 mm[Hg] Husam Yan MD Work Phone: [facility] 06-07-2022 10:29-0500 Body weight 98.7 kg Husam Yan MD Work Phone: [facility] 06-07-2022 10:29-0500 Heart rate 58 /min Husam Yan MD Work Phone: [facility] 06-07-2022 10:29-0500 Respiratory rate 16 /min Husam Yan MD Work Phone: [facility] 06-07-2022 10:29-0500 SaO2% (BldA) [Mass fraction] 96 % Husam Yan MD Work Phone: [facility] 03-05-2022 09:46-0400 Body weight 98.16 kg Husam Yan MD Work Phone: [facility] 03-05-2022 09:46-0400 Diastolic blood pressure 60 mm[Hg] Husam Yan MD Work Phone: [facility] 03-05-2022 09:46-0400 Heart rate 58 /min Husam Yan MD Work Phone: [facility] 03-05-2022 09:46-0400 Respiratory rate 16 /min Husam Yan MD Work Phone: [facility] 03-05-2022 09:46-0400 Systolic blood pressure 136 mm[Hg] Husam Yan MD Work Phone: [facility] 11-06-2021 09:22-0400 Body height 172.[address] Jean Yan Work Phone: [facility] Work Phone: 11-06-2021 09:22-0400 Body weight 97.[address] Jean Yan Work Phone: [facility] Work Phone: 11-05-2021 09:04-0400 Body mass index (BMI) [Ratio] 32.5 kg/m2 Dr. Jean Yan Work Phone: [facility] Work Phone: 10-21-2021 14:22-0400 Body mass index (BMI) [Ratio] 32.5 kg/m2 Dr. Jean Yan Work Phone: [facility] Work Phone: 10-21-2021 14:22-0400 Body temperature 98 [degF] Dr. Jean Yan Work Phone: [facility] Work Phone: 10-21-2021 14:22-0400 Body weight 97.[address] Jean Yan Work Phone: [facility] Work Phone: 10-21-2021 14:22-0400 Diastolic blood pressure 75 mm[Hg] Dr. Jean Yan Work Phone: [facility] Work Phone: 10-21-2021 14:22-0400 Heart rate 43 /min Dr. Jean Yan Work Phone: [facility] Work Phone: 10-21-2021 14:22-0400 Respiratory rate 16 /min Dr. Jean Yan Work Phone: [facility] Work Phone: 10-21-2021 14:22-0400 SaO2% (BldA) [Mass fraction] 93 % Dr. Jean Yan Work Phone: [facility] Work Phone: 10-21-2021 14:22-0400 Systolic blood pressure 166 mm[Hg] Dr. Jean Yan Work Phone: [facility] Work Phone: 10-27-2016 15:34-0400 Heart rate 69 /min Carmenlena [facility] Work Phone: 10-27-2016 15:09-0400 [...] Phone: 10-27-2016 15:040 Height 175.26 cm Carmen [facility] Work Phone: 10-27-2016 15:040 Pulse (Heart Rate) 64 /min Carmen Blu [facility] Work Phone: 10-27-2016 15:040 Respiratory Rate 20 /min Carmen Blu [facility] Work Phone: 10-27-2016 15:040 Weight 101.83 kg Carmen [facility] Work Phone: Encounters Encounter Date Encounter Type Care Provider Facility Start: 03-29-2025 End: 03-29-2025 ambulatory Efewongbe Oleghe Facility:[facility] Start: 03-12-2025 ambulatory Efewongbe Oleghe Facili ty:[facility] Start: 03-07-2025 ambulatory Efewongbe Oleghe Facili ty:[facility] Start: 03-07-2025 Nando Wiggins MD [facility] Start: 02-28-2025 ambulatory Efewongbe Oleghe Facili ty:[facility] Start: 02-28-2025 Nando Wiggins MD [facility] Start: 02-25-2025 End: 02-25-[address] Nando Wiggins MD Work Phone: -[place] [employer] [facility] Start: 02-25-2025 End: 02-25-2025 Dr. Lraon Bacon MD -[facility] Work Phone: Start: 02-15-2025 End: 02-15-2025 Dr. Hakan Gunter MD -[facility] Work Phone: Start: 02-15-2025 End: 02-15-[address] Nando Wiggins MD Work Phone: [facility] Start: 02-14-2025 ambulatory Efewongbe Oleghe Facili ty:[facility] Start: 02-14-2025 [facility] Start: 02-12-2025 ambulatory Efewongbe Oleghe Facili ty:[facility] Start: 02-12-2025 [facility] Start: 02-07-2025 ambulatory Efewongbe Oleghe Facili ty:[facility] Start: 02-07-2025 [facility] Start: 02-01-2025 ambulatory Efewongbe Oleghe OLS Fa cility:[facility] Start: 02-01-2025 [facility] Start: 01-30-2025 End: 01-30-2025 ambulatory Efewongbe Oleghe Facility:[facility] Start: 01-30-2025 End: 01-30-[address] [facility] Work Phone: Start: 01-29-2025 Dr. Jaswant Montgomery MD -[facility] Work Phone: Start: 01-28-2025 Dr. Jaswant Montgomery MD [facility] Work Phone: Start: 01-27-2025 Dr. Hakan padron MD -[facility] Start: 01-27-2025 Dr. Nazanin rivera MD -[facility] Work Phone: Start: 01-26-2025 [facility] Start: 01-26-2025 Dr. Kimberly connor MD -[facility] Work Phone: Start: 01-25-2025 ambulatory Efewongbe Oleghe Facili ty:[facility] Start: 01-25-2025 End: 01-29-2025 Evaluation and management of inpatient Dr. Nando Wiggins MD Work Phone: -[facility] Start: 01-25-2025 End: 01-29-2025 Dr. Jayla Osuna MD -[facility] Work Phone: Start: 01-25-2025 ambulatory Efewongbe Oleghe Facili ty:[facility] Start: 01-25-2025 Dr. Hakan padron MD -[facility] Start: 01-23-2025 ambulatory Efewongbe Oleghe Facili ty:[facility] Start: 01-23-2025 Nando Wiggins MD [facility] Start: 12-26-2024 End: 12-26-[address] Nando Wiggins MD Work Phone: -[place] [facility] Start: 12-26-2024 End: 12-26-2024 Grecia Duran [facility] Work Phone: Start: 12-24-2024 Nando Wiggins MD [facility] Start: 12-24-2024 End: 12-24-2024 ambulatory Efewongbe Oleghe Facility:[facility] Start: 12-21-2024 End: 12-21-[address] Nando Wiggins MD Work Phone: [facility] Start: 12-21-2024 End: 12-21-2024 [facility] Work Phone: Start: 12-20-2024 End: 12-20-[address] Nando Wiggins MD Work Phone: [facility] Start: 12-20-2024 End: 12-20-2024 Meredith STEWART [facility] Work Phone: Start: 12-19-2024 ambulatory Efewongbe Oleghe Facili ty:[facility] Start: 12-19-2024 Nando Wiggins MD [facility] Start: 12-12-2024 ambulatory Efewongbe Oleghe Facili ty:[facility] Start: 12-12-2024 Nando Wiggins MD -[facility] Start: 12-11-2024 End: 12-11-2024 Telephone encounter William Chilel MD Work Phone: Cardiology Comment on above: Courtesy call (Devi e survey) Start: 11-30-2024 End: 11-30-[address] Nando Wiggins MD Work Phone: -[facility] Start: 11-30-2024 End: 11-30-2024 Meredith Guevara NP-C -[facility] Work Phone: Start: 11-23-2024 End: 11-28-2024 Evaluation and management of inpatient HUSAM YAN Facility:[facility] Start: 11-22-2024 End: 11-23-2024 Dr. Nando Wiggins MD Work Phone: -Emergency Department Work Phone: Start: 11-22-2024 End: 11-23-2024 Emergency department patient visit Dr. Nando Wiggins MD Work Phone: -Emergency Department Start: 11-12-2024 ambulatory Nando Raini ty:[facility] Start: 11-12-2024 Nadno Wiggins MD -[facility] Start: 11-08-2024 End: 11-09-2024 Dr. Nando Wiggins MD Work Phone: -Emergency Department Work Phone: Start: 11-08-2024 End: 11-09-2024 Emergency department patient visit Dr. Nando Wiggins MD Work Phone: [facility] Work Phone: Start: 11-05-2024 End: 11-05-[address] Nando Wiggins MD Work Phone: -[facility] Start: 11-05-2024 End: 11-05-2024 Nando Wiggins MD [facility] Start: 11-05-2024 End: 11-05-2024 ambulatory Nando Wiggins Facility:[facility] Start: 11-02-2024 End: 11-02-[address] Nando Wiggins MD Work Phone: [facility] Start: 11-02-2024 End: 11-02-2024 Meredith Guevara CH[employer] WET[employer]-C -[facility] Work Phone: Start: 10-29-2024 End: 10-29-2024 ambulatory Nando Wiggins Facility:[facility] Start: 10-29-2024 End: 10-29-2024 Pooja Ruano CHANNEL LIP WETTER-C -[place] [facility] Work Phone: Start: 10-22-2024 ambulatory Nando SHERWOOD Fa cility:[facility] Start: 10-22-2024 Nando Wiggins MD [facility] Start: 10-17-2024 End: 10-17-2024 Salma MINER -[facility] Work Phone: Start: 10-17-2024 End: 10-17-2024 ambulatory Salma Cervantes Facility:[facility] Start: 10-16-2024 End: 10-16-[address] Nando Wiggins MD Work Phone: [facility] Start: 10-16-2024 End: 10-16-2024 Nando Wiggins MD [facility] Start: 10-08-2024 ambulatory Nando Wiggins OLS Fa cility:[facility] Start: 10-08-2024 Nando Wiggins MD [facility] Start: 10-03-2024 End: 10-03-2024 [facility] Work [facility]: Start: 10-03-2024 End: 10-03-[address] Jean Yan MD Work Phone: [facility] Work Phone: Start: 10-02-2024 End: 10-02-[address] Nando Wiggins MD Work Phone: [facility] Work Phone: Start: 10-02-2024 End: 10-02-2024 [facility] Start: 10-02-2024 End: 10-02-2024 ambulatory Effili Wiggins OLS Facility:[facility] Start: 09-24-2024 ambulatory Warren Whitaker ty:[facility] Start: 09-24-2024 Dr. Randal Damico MD - [facility] Start: 09-24-2024 End: 10-18-[address] Jean Yan MD Work Phone: [facility] Work Phone: Start: 09-24-2024 End: 10-18-2024 Dr. Randal [facility] Work Phone: Start: 09-24-2024 End: 09-24-2024 ambulatory Nando SHERWOOD Facility:[facility] Start: 09-21-2024 ambulatory Salma Cervantes [facility] Start: 09-17-2024 End: 09-17-2024 [facility] Start: 09-17-2024 End: 09-17-2024 ambulatory Effili SHERWOOD Facility:[facility] Start: 09-12-2024 End: 09-12-[address] Jean Yan MD Work Phone: [facility] Work Phone: Start: 09-12-2024 End: 09-12-2024 [facility] Start: 09-12-2024 End: 09-12-2024 ambulatory Effili SHERWOOD Facility:[facility] Start: 09-10-2024 ambulatory Nando SHERWOOD Fa cility:[facility] Start: 09-10-2024 Nando Wiggins MD [facility] Start: 09-05-2024 End: 09-05-2024 ambulatory Efbiancaongwolf [place] Facility:[facility] Start: 09-05-2024 End: 09-05-2024 Meredith Guevara [facility] -[facility] Work Phone: Start: 09-04-2024 Salma MINER [facility] Start: 09-03-2024 Dr. Earl White MD -[facility] Start: 09-03-2024 Dr. Randal Damico MD -[facility] Start: 09-02-2024 Salma Cervantes PA [facility] Start: 09-01-2024 Salma Cervantes PA [facility] Start: 08-31-2024 ambulatory Salma Cervantes Facility:[facility] Start: 08-31-2024 Dr. Randal Damico MD -[facility] Start: 08-31-2024 Salma Cervantes PA [facility] Start: 08-30-2024 Salma Cervantes PA [facility] Start: 08-30-2024 Dr. Randal Damico MD [facility] Start: 08-29-2024 ambulatory Salma Cervantes [facility] Start: 08-29-2024 End: 09-04-2024 Evaluation and management of inpatient Nando [place] Facility:[facility] Start: 08-29-2024 End: 09-04-2024 Dr. Earl White MD -[facility] 3 Work Phone: Start: 08-29-2024 Dr. Earl White MD -[facility] Start: 08-29-2024 ambulatory Efrehanbe Holliee Facili ty:[facility] Start: 08-28-2024 ambulatory Efewongbe Oleghe Facili ty:[facility] Start: 08-28-2024 [facility] Start: 08-27-2024 ambulatory Efewongbe Meekghe Facili ty:[facility] Start: 08-27-2024 Dr. Randal Damico MD -[facility] Start: 08-27-2024 End: 09-19-2024 ambulatory [facility] Facility:[facility] Start: 08-27-2024 End: 09-19-2024 Dr. Randal Dam[facility] Work Phone: Start: 08-27-2024 End: 08-27-[address] [facility] Facility:[facility] Start: 08-20-2024 ambulatory Efewongbe Oleghe Facili ty:[facility] Start: 08-20-2024 Dr. Randal Damico MD -[facility] Start: 08-20-2024 End: 08-20-[address] [facility] Facility:[facility] Start: 08-20-2024 End: 08-20-2024 Dr. Randal Damico [facility] Work Phone: Start: 08-17-2024 ambulatory Efewongbe Oleghe Facili ty:[facility] Start: 08-14-2024 End: 08-14-[address] [facility] Facility:[facility] Start: 08-14-2024 End: 08-14-2024 Dr. Nando Wiggins MD -[facility] Work Phone: Start: 08-13-2024 ambulatory Efewongbe Oleghe Facili ty:[facility] Start: 08-13-2024 End: 08-13-2024 Dr. Randal Damico MD [facility] Start: 08-13-2024 End: 08-13-2024 ambulatory [facility] Facility:[facility] Start: 08-06-2024 ambulatory Efewongbe Oleghe Facili ty:[facility] Start: 08-06-2024 Dr. Randal Damico MD -[facility] Start: 08-01-2024 End: 08-01-2024 Emergency department patient visit [facility] Facility:[facility] Start: 08-01-2024 End: 08-01-[address] [facility] Facility:[facility] Start: 08-01-2024 End: 08-01-2024 Dr. Des Garcia DO -[facility] Work Phone: Start: 07-31-2024 End: 07-31-2024 ambulatory Efewongbe Oleghe Facility:[facility] Start: 07-31-2024 End: 07-31-2024 Meredith Guevara - -[facility] Work Phone: Start: 07-30-2024 ambulatory Efewongbe Oleghe Facili ty:[facility] Start: 07-30-2024 Dr. Randal Damico MD [facility] Start: 07-23-2024 ambulatory Efewongbe Oleghe Facili ty:[facility] Start: 07-23-2024 Dr. Randal Daimco [facility] Start: 07-20-2024 Dr. Margarette Godinez DO -[facility] Work Phone: Start: 07-20-2024 ambulatory Efewongbe Oleghe Facili ty:[facility] Start: 07-20-2024 Dr. Earl White MD [facility] Start: 07-19-2024 Dr. Margarette Godinez DO [facility] Work Phone: Start: 07-18-2024 ambulatory Efewongbe Oleghe Facili ty:[facility] Start: 07-18-2024 Dr. Earl White MD [facility] Start: 07-18-2024 Dr. Magrarette Godinez DO -[facility] Work Phone: Start: 07-17-2024 Dr. Jayla Osuna MD [facility] Work Phone: Start: 07-16-2024 ambulatory Efewongbe Oleghe Facili ty:[facility] Start: 07-16-2024 Dr. Zenaida Cooper MD -[facility] Start: 07-15-2024 Dr. Juan Antonio Holden MD [facility] Work Phone: Start: 07-14-2024 Dr. Juan Antonio Holden MD [facility] Work Phone: Start: 07-13-2024 End: 07-20-2024 Evaluation and management of inpatient [facility] Facility:[facility] Start: 07-13-2024 End: 07-20-2024 Dr. Margarette Godinez DO -[facility] 3 Work Phone: Start: 07-13-[address] [facility] Facili ty:[facility] Start: 07-13-2024 End: 07-13-[address] [facility] Facility:[facility] Start: 07-13-2024 End: 07-13-2024 Meredith Guevara CH[employer] L[employer] WETTER-C -[facility] Work Phone: Start: 07-11-2024 End: 07-12-2024 Patient encounter procedure Pham Walker [facility] Comment on above: Population Health Na vigation Outreach ([facility]) Start: 07-11-2024 End: 07-20-2024 [facility]ulatory [facility] Start: 07-11-2024 End: 07-20-2024 Dr. Randal Damico [facility] Work Phone: Start: 07-10-2024 End: 07-10-[address] [facility] Facility:[facility] Start: 07-10-2024 End: 07-10-2024 Meredith Guevara NP-C -[facility] Work Phone: Start: 07-09-2024 End: 07-10-2024 [facility] Comment on above: Refill Request Start: 07-09-2024 Nando Wiggins MD - [facility] [place] Start: 07-07-2024 End: 07-07-2024 Dr. Alicia Loo DO -Emergency Departmen t Work Phone: Start: 07-07-2024 End: 07-07-2024 Emergency department patient visit [facility] Facility:[facility] Start: 07-03-2024 End: 07-03-2024 Dr. Eric Franklin MD -Emergency Departmen t Work Phone: Start: 07-03-2024 End: 07-03-2024 Emergency department patient visit Eric Franklin Facility:[facility] Start: 07-02-2024 Dr. Fernando stein DO -[facility] Work Phone: Start: 07-02-2024 End: 07-02-2024 ambulatory Nando Wiggins Facility:[facility] Start: 07-02-2024 End: 07-02-2024 Dr. Fernando Oliveros DO -Progressive Care Unit Work Phone: Start: 06-25-2024 ambulatory Nando Wiggins OLS Fa cility:[facility] Start: 06-25-2024 Nando Bravo Start: 06-20-2024 End: 06-20-2024 Salma MINER -[facility] Work Phone: Start: 06-20-2024 End: 06-20-2024 ambulatory Salma Cervantes Facility:[facility] Start: 06-19-2024 End: 06-22-2024 ambulatory Warren Reji Facility:[facility] Start: 06-19-2024 End: 06-22-2024 Dr. Des Ruelas [facility] -[facility] Work Phone: Start: 06-18-2024 ambulatory Nando SHERWOOD Fa cility:[facility] Start: 06-18-2024 Nando Bravo Start: 06-11-2024 End: 06-11-2024 Patient encounter procedure [facility] Comment on above: Population Health Na vigation Outreach ([facility]) Start: 06-11-2024 End: 06-11-2024 ambulatory Danilo [facility] Start: 06-11-2024 Nando Bravo Start: 06-08-2024 ambulatory Nando SHERWOOD Fa cility:[facility] Start: 06-08-2024 Nando Wiggins MD -[facility] [place] Start: 06-06-2024 End: 06-06-2024 ambulatory Nando Wiggins Facility:[facility] Start: 06-06-2024 End: 06-06-2024 Meredith STEWART -[facility] Work Phone: Start: 06-06-2024 End: 06-06-2024 ambulatory Des Ruelas Facility:[facility] Start: 06-06-2024 End: 06-06-2024 Dr. Des Ruelas DPM -Surgical Day Care Start: 06-06-2024 End: 06-06-2024 ambulatory Nando Wiggins KAELA Facility:[facility] Start: 06-04-2024 End: 06-04-2024 ambulatory Nando Wiggins Facility:[facility] Start: 05-30-2024 End: 06-05-2024 Telephone encounter Husam Yan MD Work Phone: [facility] Comment on above: Patient Update; Fill out Surgical Release Forms Start: 05-28-2024 ambulatory Nando Wiggins OLS Fa cility:[facility] Start: 05-22-2024 ambulatory Earl White Facility[facility] Start: 05-22-2024 End: 05-22-2024 ambulatory Earl Karlsruhe Facility:[facility] Start: 05-21-2024 ambulatory Debcincinnatiwolf Wiggins OLS Fa cility:[facility] Start: 05-17-2024 ambulatory Warren Mendoza Facili ty:[facility] Start: 05-17-2024 End: 05-22-2024 ambulatory Warren Mendoza Facility:[facility] Start: 05-15-2024 End: 05-15-2024 ambulatory Nando Wiggins Facility:[facility] Start: 05-11-2024 End: 05-11-2024 ambulatory Jean Yan Facility:[facility] Start: 05-04-2024 ambulatory Deni Robles ility:[facility] Start: 05-04-2024 End: 05-10-2024 ambulatory Salma Cervantes Facility:[facility] Start: 05-04-2024 End: 05-10-2024 Evaluation and management of inpatient Jaswnat Montgomery Facility:[facility] Start: 05-02-2024 ambulatory Jean Yan Faci lity:[facility] Start: 04-23-2024 End: 04-23-2024 ambulatory Sridevi Miller MA [facility] Start: 04-23-2024 End: 04-23-2024 Patient encounter procedure Sridevi Miller MA [facility] Comment on above: Population Health Na vigation Outreach ([employer] ) Start: 04-16-2024 ambulatory Jayla Osuna [facility] Start: 04-16-2024 End: 04-16-2024 ambulatory Jean Yan Facility:[facility] Start: 04-14-2024 End: 04-24-2024 Evaluation and management of inpatient Jayla Osuna Facility:[facility] Start: 04-14-2024 ambulatory Jayla Osuna [facility] Start: 04-14-2024 End: 04-14-2024 ambulatory HUSAM YAN Facility:[facility] Start: 04-14-2024 End: 04-14-2024 Patient encounter procedure Usman Quesada APRN.CNP Work Phone: [facility] Comment on above: Right foot infection (Primary Dx) Start: 04-13-2024 End: 04-17-2024 Telephone encounter Lauren Arzola APRN.CNP Work Phone: [facility] Comment on above: blood sugar reading average Start: 04-05-2024 End: 04-06-2024 Telephone encounter Lauren Arzola APRN.CNP Work Phone: [facility] Comment on above: blood sugar average Start: 03-28-2024 End: 03-28-2024 Patient encounter procedure Lauren Arzola APRN.CNP Work Phone: [facility] Comment on above: 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 Start: 01-06-2024 End: 01-06-2024 ambulatory LAUREN ARZOLA Facility:[facility] Start: 12-15-2023 End: 02-02-2024 Refill Husam Yan MD Work Phone: [facility] Comment on above: Refill Request (See Rx notes) Start: 09-08-2023 End: 09-08-2023 ambulatory JEAN PIERRE ARREAGA MD Facility:[facility] Start: 09-08-2023 End: 09-08-2023 SAME DAY STAY JEAN PIERRE ARREAGA MD [facility] Start: 09-06-2023 Telephone encounter Jean Yan MD Work Phone: [facility] [place] Comment on above: Medication Request Start: 08-08-2023 Telephone encounter Jean Yan MD Work Phone: [facility] [place] Comment on above: Medication Problem ( Freestyle toribio 14 day sensor kit - patient's sensor reader is a toribio 2 and the sensors ordered by our office are incompatible with his reader ) Start: 07-28-2023 Refill Husam Yan MD Work Phone: [facility] [place] Comment on above: Refill Request Start: 07-12-2023 Refill Husam Yan MD Work Phone: [facility] [place] Comment on above: Refill Request Start: 07-11-2023 Refill Husam Yan MD Work Phone: [facility] Comment on above: Refill Request Start: 06-27-2023 [...] [facility] [place] Comment on above: [facility] requesting records Start: 03-08-2023 Telephone encounter Jean Yan MD Work Phone: [facility] [place] Comment on above: Medication Problem Start: 02-23-2023 Telephone encounter Jean Yan MD Work Phone: [facility] [place] Comment on above: Insurance Authorizat ion Start: 01-04-2023 Refill Husam Yan MD Work Phone: [facility] [place] Start: 12-06-2022 End: 12-06-2022 Patient encounter procedure Lauren Arzola APRN.CNP Work Phone: 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 [place] Comment on above: Refill Request Start: 11-04-2022 Refill Husam Yan MD Work Phone: [facility] Comment on above: Refill Request Start: 10-27-2022 Refill Husam Yan MD Work Phone: [facility] Comment on above: Refill Request Start: 09-06-2022 End: 09-06-2022 Patient encounter procedure Lauren Dariusz STOKES Work Phone: 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 [place] Comment on above: Results Start: 06-07-2022 End: 06-07-2022 Patient encounter procedure Husam Yan MD Work Phone: 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 Comment on above: Results Start: 03-05-2022 End: 03-05-2022 Patient encounter procedure Husam Yan MD Work Phone: 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, without long-term current use of insulin (HCC) (Primary Dx); Essential hypertension; Mixed hyperlipidemia; 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); Need for COVID-19 vaccine Start: 02-03-2022 Telephone encounter Jean Yan MD Work Phone: [facility] Comment on above: Insurance Authorizat ion (Information on Glargine) Start: 02-02-2022 Refill Husam Yan MD Work Phone: [facility] Comment on above: Refill Request Start: 01-26-2022 Refill Husam Yan MD Work Phone: [facility] Comment on above: Refill Request Start: 12-14-2021 Refill Husam Yan MD Work Phone: [facility] Comment on above: Refill Request Start: 11-06-2021 Non-patient / Non-visit Dr. Mike Yan Work Phone: [facility] Start: 11-06-2021 End: 11-06-2021 Admission to same day surgery center Dr. Jean Yan Work Phone: [facility] Catcher/Special Procedures Start: 10-21-2021 End: 10-21-[address] 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 Yasir Yan Work Phone: [facility] Procedures Date Procedure Procedure Detail Performing [...] Comment: Speci men Type: BLOOD SPECIMENOrdering Facility: [facility] Address: [address] [place] [address] Performed By: #### T SCR ####CC MAIN BLOOD BANKCLIA [id number] [address] Start: 11-23-2024 Antibody screen JUAN ANTONIO PHER [place] Comment on above: Order Comment: Speci men Type: BLOOD SPECIMENOrdering Facility: [facility] Address: [address] [place] [address] Performed By: #### T SCR ####CC MAIN BLOOD BANKCLIA [id number] [address] Start: 11-22-2024 Plain chest X-ray Dr. [...] 12-06-2022 Hemoglobin A1c/Hemoglobin.total in Blood Lauren Podlogar COGNOS DEVELOPER.INFORMATICS PHYSICIAN LIAISON Work Phone: Start: 09-06-2022 Hemoglobin A1c/Hemoglobin.total in Blood Lauren Podlogar COGNOS DEVELOPER.INFORMATICS PHYSICIAN LIAISON Work Phone: Start: 03-05-2022 PFIZER-BIONTECH COVI D-19 [...] Detail Author Start: 04-26-2028 Urine microalbumin profile [facility] Start: 11-23-2025 Hepatitis B surface antibody level LDL Cholesterol [facility] Start: 09-17-2025 Glaucoma screening Dilated Retinal Exam [facility] Start: 05-26-2025 Hemoglobin A1c measurement HbA1C [facility] Start: 03-12-2025 [facility] Start: 03-07-2025 [facility] Start: 01-29-[address] [facility] Start: 01-28-2025 Transfusion of blood product [facility] Start: 01-28-2025 End: 01-28-2025 [facility] Start: 01-28-[address] [facility] Start: 01-28-2025 Administration of blood product [facility] Start: 01-26-2025 [facility] Start: 01-26-2025 Referral for physical therapy [facility] Start: 01-26-2025 Referral to occupational therapist [facility] Start: 01-26-[address] [facility] Start: 01-26-2025 [facility] Start: 01-26-2025 Care planning and problem solving actions [facility] Start: 01-26-[address] [facility] Start: 01-26-2025 Plain X-ray of femur [facility] Start: 01-26-2025 End: 01-26-2025 [facility] Start: 01-26-[address] [facility] Start: 01-25-2025 Application of intermittent pneumatic compression device [facility] Start: 01-25-2025 Referral to hospitality manager [facility] Start: 01-25-[address] [facility] Start: 01-25-2025 Following clinical pathway protocol [facility] Start: 01-25-2025 Assessment of risk of venous thromboembolism [facility] Start: 01-25-2025 Care regimes management [facility] Start: 01-25-2025 Insertion of catheter into peripheral vein [facility] Start: 01-25-2025 Measuring intake and output [facility] Start: 01-25-2025 Notification of physician [facility] Start: 01-25-[address] [facility] Start: 01-25-2025 Providing care according to standard [facility] Start: 01-25-2025 [address]vision [address] privileges [facility] Start: 01-25-2025 Referral for physical therapy [facility] Start: 01-25-2025 Referral to occupational therapist [facility] Start: 01-25-[address] [facility] Start: 01-25-2025 End: 01-25-2025 [facility] Start: 01-25-[address] [facility] Start: 01-25-2025 Hospital admission, emergency, from emergency room, medical nature [facility] Start: 01-25-2025 Patient referral to dietitian [facility] Start: 01-21-2025 Influenza vaccination Influenza Vaccine (#1) Ruddy cooley Start: 01-08-2025 End: 01-08-2025 Patient encounter procedure 01/08/2025 10:30 AM EDT Appointment Cardiology [address] [place] [address] OUTPATIENT 4-6W DEVICE CHECK (PACEMAKER) Cardiology Comment on above: OUTPATIENT 4-6W DEVICE CHECK (PACEMA KER) Start: 11-22-2024 End: 11-22-2024 [facility] Start: 11-08-2024 [facility] Start: 09-04-[address] [facility] Start: 09-04-2024 End: 09-04-2024 [facility] Start: 09-04-[address] [facility] Start: 09-03-2024 Application of intermittent pneumatic compression device [facility] Start: 09-03-[address] [facility] Start: 09-03-2024 [facility] Start: 09-01-2024 End: 09-01-2024 [facility] Start: 09-01-[address] [facility] Start: 09-01-[address] [facility] Start: 08-30-2024 Following clinical pathway protocol [facility] Start: 08-30-2024 [facility] Start: 08-30-2024 End: 08-30-2024 [facility] Start: 08-30-[address] [facility] Start: 08-30-2024 Referral to hospitality manager [facility] Start: 08-29-2024 Following clinical pathway protocol [facility] Start: 08-29-2024 Assessment of risk of venous thromboembolism [facility] Start: 08-29-2024 Care regimes management [facility] Start: 08-29-2024 Insertion of catheter into peripheral vein [facility] Start: 08-29-2024 Notification of physician [facility] Start: 08-29-2024 Providing care according to standard [facility] Start: 08-29-2024 Referral to occupational therapist [facility] Start: 08-29-[address] [facility] Start: 08-29-2024 End: 08-29-2024 [facility] Start: 08-29-[address] [facility] Start: 08-01-2024 [facility] Start: 07-20-[address] [facility] Start: 07-19-2024 End: 07-19-2024 [facility] Start: 07-19-[address] [facility] Start: 07-17-2024 End: 07-17-2024 [facility] Start: 07-17-[address] [facility] Start: 07-17-[address] [facility] Start: 07-16-2024 Following clinical pathway protocol [facility] Start: 07-16-[address] [facility] Start: 07-14-2024 [facility] Start: 07-14-[address] [facility] Start: 07-14-2024 End: 07-14-2024 [facility] Start: 07-14-[address] [facility] Start: 07-13-2024 Application of intermittent pneumatic compression device [facility] Start: 07-13-2024 Assessment of risk of venous thromboembolism [facility] Start: 07-13-2024 Care regimes management [facility] Start: 07-13-[address] [facility] Start: 07-13-2024 Insertion of catheter into peripheral vein [facility] Start: 07-13-2024 Measuring intake and output [facility] Start: 07-13-2024 Notification of physician [facility] Start: 07-13-2024 Providing care according to standard [facility] Start: 07-13-2024 [address]vision [address] privileges [facility] Start: 07-13-2024 Referral to hospitality manager [facility] Start: 07-13-2024 Referral to occupational therapist [facility] Start: 07-13-2024 Referral to abstract searcher [facility] Start: 07-13-[address] [facility] Start: 07-13-2024 End: 07-13-2024 [facility] Start: 07-13-[address] [facility] Start: 07-09-2024 End: 07-09-2024 Patient encounter procedure 07/09/2024 9:40 AM EST Office Visit [facility] [place] [address] [place] [address] Husam Yan MD [address] [place] [address] 6 month follow up [facility] [place] Comment on above: 6 month follow up Start: 07-07-2024 [facility] Start: 07-03-2024 [facility] Start: 07-02-[address] [facility] Start: 07-02-2024 End: 07-02-2024 [facility] Start: 07-02-[address] [facility] Start: 07-02-2024 Assessment of risk of venous thromboembolism [facility] Start: 07-02-2024 Catheterization of vein [facility] Start: 07-02-2024 Insertion of catheter into peripheral vein [facility] Start: 07-02-[address]24 Measuring intake and output [facility] Start: 07-02-2024 Providing care according to standard [facility] Start: 07-02-2024 Referral to hospitality manager [facility] Start: 07-02-[address] [facility] Start: 06-28-2024 Hemoglobin A1c measurement HbA1C [facility] Start: 06-06-2024 Adjt tis trns/reargmt f/c/c/m/n/a/g/h/f 10sqcm/< [facility] Start: 06-06-[address] [facility] Start: 06-06-2024 Anes open proc bones lower leg/ankle/foot nos [facility] Start: 06-06-2024 Catheterization of vein [facility] Start: 06-06-2024 Neurovascular assessment [facility] Start: 06-06-[address] [facility] Start: 06-06-[address] [facility] Start: 06-06-2024 Vital signs measurements [facility] Start: 06-06-2024 [facility] Start: 05-25-2024 Hepatitis B surface antibody level LDL Cholesterol [facility] Start: 05-23-2024 Advance Directive Discussion Advance Directive Discussion [facility] Start: 05-23-2024 Medicare Advantage Annual Wellness Visit Medicare Advantage Annual Wellness Visit [facility] Start: 04-27-2024 Glaucoma screening Dilated Retinal Exam [facility] Start: 10-02-2024 3 comp foot exam completed Diabetic Foot Exam [facility] Start: 02-22-2024 Diabetic foot examination Diabetic Foot Exam [facility] Start: 02-10-2024 End: 02-10-2024 Patient encounter procedure 02/10/2024 11:30 AM EDT Office Visit Podiatry [address] [place] [address] [employer] [address] [place] [address] 3 month follow up nail care Podiatry Comment on above: 3 month follow up nail care Start: 01-22-2024 Covid-19 Vaccine () Covid-19 Vaccine () [facility] Start: 01-22-2024 Covid-19 Vaccine () Covid-19 Vaccine () [facility] Start: 01-22-2024 Influenza vaccination Influenza Vaccine (#1) [facility] Start: 01-06-2024 End: 04-06-2024 Comprehensive metabolic 2000 panel - Serum or Plasma COMPREHENSIVE METABOLIC PANEL Lab Routine 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 edema, with long-term current use of insulin (HCC) Expected: 01/06/2024, Expires: 04/06/2024 [facility] Work Phone: Comment on above: Expected: 01/06/2024, Expires: Start: 01-06-2024 End: 04-06-2024 Hemoglobin A1c in Blood HEMOGLOBIN A1C Lab Routine 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 edema, with long-term current use of insulin (HCC) Expected: 01/06/2024, Expires: 04/06/2024 [facility] Comment on above: Expected: 01/06/2024, Expires: 4 Start: 11-04-2023 End: 11-04-2023 Patient encounter procedure Podiatry Comment on above: 3 month follow up nail care 4 month follow up Start: 08-24-2023 Hemoglobin A1c measurement HbA1C [facility] Start: 07-06-2023 Hepatitis B Vaccine (9 of 9 - Risk Dialysis Recombivax 3-dose series) Hepatitis B Vaccine (9 of 9 - Risk Dialysis Recombivax 3-dose series) [facility] Start: 06-24-2023 Covid-19 Vaccine (4 - Additional dose for Gage series) Covid-19 Vaccine (4 - Additional dose for Gage series) [facility] Start: 06-24-2023 Covid-19 Vaccine () Covid-19 Vaccine () [facility] Start: 06-07-2023 SHINGRIX VACCINE (1 of 2) SHINGRIX VACCINE (1 of 2) [facility] Comment on above: Postponed from 1954 (Declined at t his time) Postponed from 04/30 (Declined at this time) Start: 05-23-2023 Advance Directive Discussion Advance Directive Discussion [facility] Start: 05-23-2023 Behavioral Health Screening Behavioral Health Screening [facility] Start: 03-08-2023 Hemoglobin A1c/Hemoglobin.total in Blood HBA1C [facility] Start: 03-05-2023 Hepatitis B surface antibody level LDL CHOLESTEROL [facility] Start: 03-04-2023 Hepatitis B Vaccine (6 of 6 - Risk Dialysis Recombivax 3-dose series) Hepatitis B Vaccine (6 of 6 - Risk Dialysis Recombivax 3-dose series) [facility] Start: 02-08-2023 Hepatitis C antibody, confirmatory test DILATED RETINAL EXAM [facility] Start: 01-21-2023 Influenza vaccination INFLUENZA (#1) [facility] Start: 12-06-2022 Hemoglobin A1c/Hemoglobin.total in Blood HBA1C [facility] Start: 09-06-2022 End: 11-06-2022 Hemoglobin A1c in Blood HGB A1C Lab Routine 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, without long-term current use of insulin (HCC) Expected: 09/06/2022, Expires: 11/06/2022 [facility] Work Phone: Comment on above: Expected: 09/06/2022, Expires: Start: 09-05-2022 Hemoglobin A1c/Hemoglobin.total in Blood HBA1C [facility] Start: 09-02-2022 3 comp foot exam completed DIABETIC FOOT EXAM [facility] Start: 07-06-2022 COVID-19 VACCINE (4 - Additional dose for Gage series) COVID-19 VACCINE (4 - Additional dose for Gage series) [facility] Start: 06-07-2022 End: 08-07-2022 Comprehensive metabolic 2000 panel - Serum or Plasma [facility] Work Phone: Comment on above: Expected: 06/07/2022, Expires: 3 Start: 06-07-2022 End: 08-07-2022 Hemoglobin A1c in Blood [facility] Work Phone: Comment on above: Expected: 06/07/2022, Expires: 3 Start: 06-05-2022 Hemoglobin A1c/Hemoglobin.total in Blood HBA1C [facility] Start: 05-23-2022 ADVANCE DIRECTIVE DISCUSSION ADVANCE DIRECTIVE DISCUSSION [facility] Start: 02-25-2022 Hepatitis B surface antibody level LDL CHOLESTEROL [facility] Start: 01-21-2022 Influenza vaccination INFLUENZA (#1) [facility] Start: 12-05-2021 Hepatitis C antibody, confirmatory test DILATED RETINAL EXAM [facility] Start: 12-02-2021 Hemoglobin A1c/Hemoglobin.total in Blood HBA1C [facility] Start: 07-24-2021 COVID-19 VACCINE (3 - Booster for Gage series) COVID-19 VACCINE (3 - Booster for Gage series) [facility] Start: 05-23-2021 ADVANCE DIRECTIVE DISCUSSION ADVANCE DIRECTIVE DISCUSSION [facility] Start: 05-23-2021 DEPRESSION ASSESSMENT DEPRESSION ASSESSMENT [facility] Start: 05-21-2021 COVID-19 VACCINE (3 - Booster for Gage series) COVID-19 VACCINE (3 - Booster for Gage series) [facility] Start: 05-12-2017 End: 05-12-2017 Appointment Appointment [facility] Work Phone: Start: 10-27-2016 End: 10-27-2016 Appointment Appointment [facility] Work Phone: Start: 10-27-2016 End: 10-27-2016 Echocardiography Echocardiogram (complete) [facility] Work Phone: Start: 10-27-2016 End: 10-27-2016 Electrocardiogram, complete EKG (In office) [facility] Work Phone: Start: 10-27-2016 End: 10-27-2016 Follow Up Appt 6 months Follow Up Appt 6 months [facility] Work Phone: Start: 10-27-2016 End: 10-27-2016 MMM MMM [facility] Work Phone: Start: 10-27-2016 End: 10-27-2016 Nuclear stress test -Lexiscan Nuclear stress test -Lexiscan [facility] Work Phone: Start: 2012 RSV Vaccine (1 - 1-dose 75+ series) RSV Vaccine (1 - 1-dose 75+ series) [facility] Start: 1997 RSV Vaccine (1 - 1-dose 60+ series) RSV Vaccine (1 - 1-dose 60+ series) [facility] Start: 1987 SHINGRIX VACCINE (1 of 2) SHINGRIX VACCINE (1 of 2) [facility] Start: 1956 SHINGRIX VACCINE (1 of 2) SHINGRIX VACCINE (1 of 2) [facility] Start: 1955 Anxiety Screening Anxiety Screening [facility] Start: 1955 Depression Screening Depression Screening [facility] Patient Education [facility] Work Phone: Patient referral [facility] Work Phone: Referral for further care [facility] Immunizations Immunization Date Immunization Notes Care Provider [facility] 04-01-2024 influenza virus vaccine, unspecified formulation William Chilel MD Work Phone: [facility] 03-15-2024 influenza, injectabl e, quadrivalent, preservative free Dr. Jean Yan MD Work Phone: [facility] 02-21-2023 COVID-19 vaccine, ag e 12+ yr, 2022- season ([employer]ri[employer]-Graph[employer] SystemsNTLRN) Husam Yan MD Work Phone: [facility] 02-21-2023 influenza (HD-IIV4) vaccine, age 65+ yr, high dose, quadrivalent, PF (FLUZONE HIGH-DOSE) Husam Yan MD Work Phone: [facility] 02-21-2023 influenza virus vaccine, unspecified formulation JEAN PIERRE ARREAGA MD [facility] 02-21-2023 SARS-CoV-2 (COVID-19 ) [id number] JEAN PIERRE ARREAGA MD [facility] Comment on above: Result Comment: 2023: [id number] 03-05-2022 COVID-19 booster vaccine, age 12+ yr, bivalent (SideStripe-BIONTLRN) Husam Yan MD Work Phone: [facility] 03-04-2022 Hepatitis B vaccine (recombinant), CpG adjuvanted Husam Yan MD Work Phone: [facility] Work Phone: 02-25-2022 influenza, high-dose , quadrivalent vaccine (FLUZONE HIGH DOSE QUADRIVALENT) Husam Yan MD Work Phone: [facility] Work Phone: 03-26-2021 SARS-CoV-2 (COVID-19 ) [id number] vaccine JEAN PIERRE ARREAGA MD [facility] 02-17-2021 influenza, high-dose , quadrivalent vaccine (FLUZONE HIGH DOSE QUADRIVALENT) Husam Yan MD Work Phone: [facility] 12-30-2020 Hepatitis B vaccine (recombinant), CpG adjuvanted Husam Yan MD Work Phone: [facility] 10-02-2020 Hepatitis B vaccine (recombinant), CpG adjuvanted Husam Yan MD Work Phone: [facility] 07-31-2020 COVID-19 vaccine (GAGE) Husam Yan MD Work Phone: [facility] Comment on above: Result Comment: 2023: [id number] 07-01-2020 hepatitis B vaccine, adult dosage Husam Yan MD Work Phone: [facility] [facility] 06-03-2020 hepatitis B vaccine, adult dosage Husam Yan MD Work Phone: [facility] 04-19-2020 influenza virus vaccine, unspecified formulation JEAN PIERRE ARREAGA MD [facility] 04-19-2020 influenza, injectabl e, quadrivalent, preservative free Dr. Jean Yan MD Work Phone: [facility] 04-19-2020 influenza, seasonal, injectable Dr. Jean Yan Work Phone: [facility] Work Phone: 04-19-2020 influenza, seasonal, injectable, preservative free Husam Yan MD Work Phone: [facility] Work Phone: 02-28-2019 influenza virus vaccine, unspecified formulation JEAN PIERRE ARREAGA MD [facility] 02-28-2019 influenza, high dose seasonal, preservative-free Husam Yan MD Work Phone: [facility] 06-12-2014 pneumococcal conjuga te vaccine, 13 valent Husam Yan MD Work Phone: [facility] 02-20-2011 influenza virus vaccine, unspecified formulation Husam Yan MD Work Phone: [facility] Work Phone: 02-14-2009 influenza virus vaccine, unspecified formulation Husam Yan MD Work Phone: [facility] Work Phone: 11-01-2007 diphtheria and tetan us toxoids, adsorbed for pediatric use Husam Yan MD Work Phone: [facility] Work Phone: 05-08-2007 influenza virus vaccine, unspecified formulation Husam Yan MD Work Phone: [facility] Work Phone: 03-28-2006 influenza virus vaccine, unspecified formulation Husam Yan MD Work Phone: [facility] 03-04-2006 pneumococcal polysaccharide vaccine, 23 valent Husam Yan MD Work Phone: [facility] Work Phone: Payers Date Payer Category Payer Medicaid [id number] 10-28-2023 Self-pay [id number] 01-21-2021 Medicare HUMANA MEDICARE HUMANA MEDICARE PPO [id number] 01/21/2021-Present [phone] [place] [address] [id number]. [id number] 05-23-2017 Medicare [id number]. [id number] 05-23-2017 Medicare (Managed Care) [place] [id number]. [id number] 05-23-2012 Medicare [id number] 1935 Unknown [id number] 2.16.840.1.909824.3.579.2. 627 Unknown SELF PAY INSURANCE [id number] Unknown [id number] 2.16.840.1.616502.3.579.2. 462 Unknown [id number] 2.16.840.1.187273.3.579.2. 462 Unknown [id number] 2.16.840.1.005195.3.579.2. 462 Unknown [id number] 2.16.840.1.864199.3.579.2. 462 Unknown [id number] 2.16.840.1.376128.3.579.2. 462 Unknown [id number] 2.840.1.174032.3.579.2. 462 Unknown [id number] 2..840.1.685576.3.579.2. 462 Unknown [id number] 2.16.840.1.137906.3.579.2. 462 Unknown [id number] 2.16.840.1.315596.3.579.2. 462 Unknown [id number] 2..840.1.075575.3.579.2. 462 Unknown [id number] 2..840.1.684668.3.579.2. 462 Unknown [id number] 2.16.840.1.420527.3.579.2. 462 Unknown [id number] 2.16.840.1.365899.3.579.2. 462 Unknown [id number] 2.16.840.1.005877.3.579.2. 462 Unknown [id number] 2.16.840.1.518337.3.579.2. 462 Unknown [id number] 2.16.840.1.853615.3.579.2. 462 Unknown [id number] 2.16.840.1.252677.3.579.2. 462 Unknown [id number] 2.16.840.1.587865.3.579.2. 462 Unknown [id number] 2.16.840.1.612971.3.579.2. 462 Unknown [id number] 2.16.840.1.617283.3.579.2. 462 Unknown [id number] 2.16.840.1.084212.3.579.2. 462 Unknown [id number] 2.16.840.1.273110.3.579.2. 462 Unknown [id number] 2.16.840.1.848858.3.579.2. 462 Unknown [id number] 2.16.840.1.665382.3.579.2. 462 Unknown [id number] 2.16.840.1.091511.3.579.2. 462 Unknown [id number] 2.16.840.1.386251.3.579.2. 462 Unknown [id number] 2.16.840.1.291041.3.579.2. 462 Unknown [id number] 2.16.840.1.115411.3.579.2. 462 Unknown [id number] 2.16.840.1.333585.3.579.2. 462 Unknown [id number] 2.16.840.1.283910.3.579.2. 462 Unknown [id number] 2.16.840.1.262728.3.579.2. 462 Unknown [id number] 2.16.840.1.599668.3.579.2. 462 Unknown [id number] 2.16.840.1.810860.3.579.2. 462 Unknown [id number] 2.16.840.1.654517.3.579.2. 462 Unknown [id number] 2.16.840.1.786925.3.579.2. 462 Unknown [id number] 2.16.840.1.159408.3.579.2. 462 Unknown [id number] 2.16.840.1.136762.3.579.2. 462 Unknown [id number] 2.16.840.1.933242.3.579.2. 462 Unknown [id number] 2.16840.1.997638.3.579.2. 462 Unknown [id number] 2.16.840.1.522055.3.579.2. 462 Unknown [id number] 2.840.1.029445.3.579.2. 462 Unknown [id number] 2..840.1.652340.3.579.2. 462 Unknown [id number] 2.840.1.875749.3.579.2. 462 Unknown [id number] 2.840.1.102760.3.579.2. 462 Unknown [id number] 2.840.1.315759.3.579.2. 462 Unknown [id number] 2.840.1.686346.3.579.2. 462 Unknown [id number] 2.840.1.369298.3.579.2. 462 Unknown [id number] 2.840.1.151623.3.579.2. 462 Unknown [id number] 2.840.1.812497.3.579.2. 462 Unknown [id number] 2.840.1.497544.3.579.2. 462 Unknown [id number] 2.840.1.902499.3.579.2. 462 Unknown [id number] 2.840.1.484646.3.579.2. 462 Unknown [id number] 2.840.1.575170.3.579.2. 462 Unknown [id number] 2.16.840.1.536989.3.579.2. 462 Unknown [id number] 2.16.840.1.906523.3.579.2. 462 Unknown [id number] 2.16.840.1.000181.3.579.2. 462 Unknown [id number] 2.16.840.1.788701.3.579.2. 462 Unknown [id number] 2.16.840.1.339180.3.579.2. 462 Unknown [id number] 2.16.840.1.587177.3.579.2. 462 Unknown [id number] 2.16.840.1.729795.3.579.2. 462 Unknown [id number] 2.840.1.616075.3.579.2. 462 Unknown [id number] 2.16840.1.669823.3.579.2. 462 Unknown [id number] 2.16.840.1.250482.3.579.2. 462 Unknown [id number] 2.16.840.1.533136.3.579.2. 462 Unknown [id number] 2.16.840.1.656510.3.579.2. 462 Unknown [id number] 2.16.840.1.083454.3.579.2. 462 Unknown [id number] 2.16.840.1.467805.3.579.2. 462 Unknown [id number] 2.16.840.1.444964.3.579.2. 462 Unknown [id number] 2.16.840.1.545701.3.579.2. 462 Unknown [id number] 2.16.840.1.525276.3.579.2. 462 Unknown [id number] 2.16.840.1.828850.3.579.2. 462 Unknown [id number] 2.16.840.1.016655.3.579.2. 462 Unknown [id number] 2.16.840.1.053374.3.579.2. 462 Unknown [id number] 2.16.840.1.036485.3.579.2. 462 Unknown [id number] 2.16.840.1.188852.3.579.2. 462 Unknown [id number] 2.16.840.1.599433.3.579.2. 462 Unknown [id number] 2.16.840.1.219939.3.579.2. 462 Unknown [id number] 2.16.840.1.093982.3.579.2. 462 Unknown [id number] 2.16.840.1.329209.3.579.2. 462 Unknown [id number] 2.16.840.1.606551.3.579.2. 462 Unknown [id number] 2.16.840.1.195754.3.579.2. 462 Unknown [id number] 2.16.840.1.752945.3.579.2. 462 Unknown [id number] 2.16.840.1.956018.3.579.2. 462 Unknown [id number] 2.16.840.1.705763.3.579.2. 462 Unknown [id number] 2.16.840.1.228488.3.579.2. 462 Unknown [id number] 2.16.840.1.472670.3.579.2. 462 Unknown [id number] 2.16.840.1.916882.3.579.2. 462 Unknown [id number] 2.16.840.1.864671.3.579.2. 462 Unknown [id number] 2.16.840.1.316670.3.579.2. 462 Unknown [id number] 2.16.840.1.617615.3.579.2. 462 Unknown [id number] 2.16.840.1.629520.3.579.2. 462 Unknown [id number] 2.16.840.1.597683.3.579.2. 462 Unknown [id number] 2.16.840.1.317334.3.579.2. 462 Unknown [id number] 2.16.840.1.217068.3.579.2. 462 Unknown [id number] 2.16.840.1.419053.3.579.2. 462 Unknown [id number] 2.16.840.1.628065.3.579.2. 462 Unknown [id number] 2.16.840.1.130815.3.579.2. 462 Unknown [id number] 2.16.840.1.362788.3.579.2. 462 Unknown [id number] 2.16.840.1.429380.3.579.2. 462 Unknown [id number] 2.16.840.1.589709.3.579.2. 462 Unknown [id number] 2.16.840.1.701556.3.579.2. 462 Unknown [id number] 2.16.840.1.427787.3.579.2. 462 Unknown [id number] 2.16.840.1.779465.3.579.2. 462 Unknown [id number] 2.16.840.1.499427.3.579.2. 462 Unknown [id number] 2.16.840.1.937884.3.579.2. 462 Unknown [id number] 2.16.840.1.235347.3.579.2. 462 Unknown [id number] 2.16.840.1.787413.3.579.2. 462 Unknown [id number] 2.16.840.1.727294.3.579.2. 462 Unknown [id number] 2.16.840.1.455407.3.579.2. 462 Unknown [id number] 2.16.840.1.568887.3.579.2. 462 Unknown [id number] 2.16.840.1.694331.3.579.2. 462 Unknown [id number] 2.16.840.1.223034.3.579.2. 462 Unknown [id number] 2.16.840.1.059732.3.579.2. 462 Unknown [id number] 2.16.840.1.392342.3.579.2. 462 Unknown [id number] 2.16.840.1.760502.3.579.2. 462 Unknown [id number] 2.16.840.1.519770.3.579.2. 462 Unknown [id number] 2.16.840.1.662809.3.579.2. 462 Unknown [id number] 2.16840.1.585510.3.579.2. 462 Unknown [id number] 2.16.840.1.883160.3.579.2. 462 Unknown [id number] 2.16.840.1.855715.3.579.2. 462 Unknown [id number] 2.16.840.1.536488.3.579.2. 462 Unknown [id number] 2.16.840.1.804033.3.579.2. 462 Unknown [id number] 2.16.840.1.915731.3.579.2. 462 Unknown [id number] 2.16.840.1.261130.3.579.2. 462 Unknown [id number] 2.16.840.1.085017.3.579.2. 462 Unknown [id number] 2.16.840.1.633913.3.579.2. 462 Unknown [id number] 2.16.840.1.263127.3.579.2. 462 Unknown [id number] 2.16.840.1.257266.3.579.2. 462 Unknown [id number] 2.16.840.1.966923.3.579.2. 462 Unknown [id number] 2.16.840.1.618803.3.579.2. 462 Unknown [id number] 2.16.840.1.611626.3.579.2. 462 Unknown [id number] 2.16.840.1.765227.3.579.2. 462 Unknown [id number] 2.16.840.1.044448.3.579.2. 462 Unknown [id number] 2.16.840.1.413771.3.579.2. 462 Unknown [id number] 2.16.840.1.005122.3.579.2. 462 Unknown [id number] 2.16840.1.401599.3.579.2. 462 Unknown [id number] 2.16840.1.488677.3.579.2. 462 Unknown [id number] 2.16840.1.053358.3.579.2. 462 Unknown [id number] 2.16.840.1.326913.3.579.2. 462 Unknown [id number] 2.16.840.1.966120.3.579.2. 462 Unknown [id number] 2.16840.1.499533.3.579.2. 462 Unknown [id number] 2.16.840.1.893453.3.579.2. 462 Unknown [id number] 2.16.840.1.773907.3.579.2. 462 Unknown [id number] 2.16.840.1.098816.3.579.2. 462 Unknown 54649203 2.16.840.1.052056.3.579.2. 462 Unknown [id number] 2.16.840.1.027154.3.579.2. 462 Unknown [id number] 2.16.840.1.021121.3.579.2. 462 Unknown [id number] 2.16.840.1.667833.3.579.2. 462 Unknown [id number] 2.16.840.1.633774.3.579.2. 462 Unknown [id number] 2.16.840.1.588435.3.579.2. 462 Unknown [id number] 2.16.840.1.832471.3.579.2. 462 Social History Date Type Detail Facility Start: 07-25-2017 End: 03-05-2022 Tobacco smoking status NHIS Ex-smoker [facility] History of tobacco use Cigar Smoker [facility] Start: 07-25-2017 End: 03-05-2022 Tobacco use and exposure Smokeless tobacco non-user [facility] Start: 07-15-2021 End: 11-26-2024 Alcohol intake Current drinker of alcohol (finding) [facility] Start: 07-15-2021 End: 12-06-2022 Alcohol intake [facility] Work Phone: Start: 11-18-2016 History SDOH Alcohol Comment rarely [facility] Start: 04-28-2017 Tobacco Comment Occasionally [facility] Start: 1935 Sex Assigned At Not on file C [facility] Start: 02-02-2021 End: 03-05-2022 Exposure to SARS-CoV-2 (event) Not sure [facility] Start: 11-06-2021 Tobacco smoking stat us MNIS Unknown if ever smoked [facility] Work Phone: Start: 04-18-2020 None [facility] Start: 08-28-2020 Spouse/ Signif icant Other [facility] Start: 09-26-2020 Non-smoker [facility] Start: 1935 Sex Assigned At Male A [facility] History of tobacco use Current smoker [facility] Start: 12-06-2022 End: 11-26-2024 Tobacco use panel [facility] Work Phone: Adult Depression Screening Assessment 0 [facility] Work Phone: Start: 08-28-2024 End: 03-08-2025 Tobacco smoking status NHIS Never smoked tobacco (finding) [facility] Has the [employer], or [employer] threatened to shut off services in your home in past 12Mo No [facility] Work Phone: (I/We) worried wheth er (my/our) food would run out before (I/we) got money to buy more. Never true [facility] Medical Equipment Procedure Code Equipment Code [...] above or below knee FDA Start: 08-29-2024 [id number], [id number], [id number], [id number], [id number], [id number], [id number], [id number] Start: 09-06-2011 End: 10-27-2022 Comment on above: Test blood sugar(s) 2x daily. Dx E11.65. Insulin: No. Test blood sugar(s) 2x daily. Dx: E11.65. Insulin: No Use one needle for e ach dose. 1x/day. 1 Each once daily. Test blood sugar(s) 2 times daily. Dx: Type 2 DM -E11.65 Insulin: No [id number], [id number], [id number], [id number] FDA Start: 04-28-2017 Comment on above: True Metrix Lancets. Test blood sugar(s) 2x daily. Dx: E11.65. Insulin: No True Metrix Test Str ips. Test blood sugar(s) 2x daily. Dx: E11.65. Insulin: No Goals Date Patient Goal Desired Activity /State Functional Status Date Assessment Result Facility [facility] 11-28-2024 Are you deaf, or do you have serious difficulty hearing No 11/28/2024 11:21 AM Danilo Rankin RN No [facility] 11-28-2024 Are you blind, or do you have serious difficulty seeing, even when wearing glasses No 11/28/2024 11:21 AM Danilo Rankin, ISABEL No [facility] 11-28-2024 Do you have serious difficulty walking or climbing stairs Yes 11/28/2024 11:21 AM Danilo Rankin, ISABEL Yes [facility] 11-28-2024 Do you have difficul ty dressing or bathing No 11/28/2024 11:21 AM GETACHEWT Danilo Nesbitt, ISABEL No [facility] 11-28-2024 Because of a physica l, mental, or emotional condition, do you have difficulty doing errands alone such as visiting a physician's office or shopping Yes 11/28/2024 11:21 AM GTEACHEWT Danilo Nesbitt, ISABEL Yes [facility] 09-04-2024 Functional status Bedrest [facility] Work Phone: 09-03-[address] [facility] Work [facility]: 07-20-2024 [facility] Work Phone: 07-02-2024 Functional status Independent [facility] [place] [place] [facility] Work Phone: 09-08-2023 Functional Status Other: eye shield [facility] 09-08-2023 Functional Status Maintained [facility] 09-07-2023 Functional Status [facility] 09-26-2014 Are you deaf, or do you have serious difficulty hearing No 09/26/2014 8:15 AM Pooja Goins RN No [facility] 09-26-2014 Are you blind, or do you have serious difficulty seeing, even when wearing glasses No 09/26/2014 8:15 AM Pooja Goins RN No [facility] 09-26-2014 Do you have serious difficulty walking or climbing stairs No 09/26/2014 8:15 AM Pooja Goins RN No [facility] 09-26-2014 Do you have difficul ty dressing or bathing No 09/26/2014 8:15 AM Pooja Goins RN No [facility] 09-26-2014 Because of a physica l, mental, or emotional condition, do you have difficulty doing errands alone such as visiting a physician's office or shopping No 09/26/2014 8:15 AM Pooja Goins RN No [facility] Mental Status Date Assessment Result Facility 01-29-2025 Cognitive function Appropriate;[facility] Work Phone: 01-29-2025 Cognitive function Voice/Name [facility] Work Phone: 11-28-2024 Because of a physica l, mental, or emotional condition, do you have serious difficulty concentrating, remembering, or making decisions Yes 11/28/2024 11:21 AM Danilo Rankin, ISABEL Yes [facility] 11-22-2024 Cognitive function Voice/Name [facility] Work Phone: 09-04-2024 Cognitive function Voice/Name [facility] Work Phone: 07-20-2024 Cognitive function Voice/Name [facility] Work Phone: 07-07-2024 Cognitive function Voice/Name [facility] Work Phone: 07-03-2024 Cognitive function Follows Commands;Drows y [facility] Work Phone: 07-02-2024 Cognitive function Appropriate;[facility] Work Phone: 06-06-2024 Cognitive function Drowsy [facility] Work Phone: 06-06-2024 Cognitive function Voice/Name [facility] Work Phone: 09-08-2023 Mental Status [facility]ed x [facility] 09-26-2014 Because of a physica l, mental, or emotional condition, do you have serious difficulty concentrating, remembering, or making decisions No 09/26/2014 8:15 AM Pooja Goins, ISABEL No [facility] Clinical Notes 12-19-2015 to 02-15-2025 Note Date & Type Note Facility 02-15-2025 Radiology Diagnostic study note [facility] 01-29-2025 Discharge summary Note Date/Time January 29, 2025 12:08pm [facility] Medical Records Department [address] [place] [address] Discharge Summary 01/29/25 1003 MR#: [id number] Acct: [id number] Name: PERLA THOMPSON Rep #:[id number] : 1935 89 From: Jaswant pablo MD PCP: Dr. Nando Wiggins MD Status:A DM IN Location: [facility] Providers Date of Admission: 01/25/25 Primary Care [...] (Adult Aspirin Regimen) 81 mg PO DAILY [facility] 07/01/20 Held on 01/29/25. Instructions: [...] with preserved ejection fraction who presented to [facility] ED 01/25/2025 due to a fall. Reportedly [...] (Auto) 68.9, Lymph % (Auto) 13.6 L, Boyle % (Auto) 13.7 H, Eos % (Auto) [...] in before D/C Order can be placed): Fdc Facility Charges/Coding Visit Charges Inpatient E&M: 53970 Disch Hosp >30min 01/29/25 1208 <Electronically signed by Jaswant Montgomery MD> Cosigner Signature (if applicable): CC: Dr. Nando Wiggins MD; Dr. Jaswant Montgomery MD~ Signed [facility] Work Phone: 1(979) 405-429309-09-2025 Discharge summary Author Jaswant Montgomery [facility] Note Date/Time January 29, 2025 10:02am [facility] Medical Records Department [address] [place] [address] Transfer to Extended Care MR#: [id number] Acct: [id number] Name: PERLA THOMPSON Rep #:[id number] : 1935 89 From: Jaswant pablo MD PCP: Dr. Nando Wiggins MD Status:A DM IN Certification of patient admission REQUIRED AT TIME OF ADMISSION. I CERTIFY THAT POST-HOSPITAL ECF SERVICES ARE REQUIRED TO BE GIVEN ON AN IN-PATIENT BASIS BECAUSE OF THE ABOVE NAMED PATIENT'S NEED FOR GROUP HOME CARE ON A CONTINUING BASIS FOR THE [...] Care Provider: Nando Wiggins Consulting Providers: Hakan Gunetr; Jayla Osuna; Manuel Alva; Kimberly Orozco Discharge [...] in before D/C Order can be placed): Fdc Facility 01/29/25 1002 <Electronically signed by Jaswant Montgomery MD> Cosigner Signature (if applicable): CC: Dr. Nando Wiggins MD; Dr. Manuel Alva MD; Dr. Kimberly Orozco MD; Dr. Jayla Osuna MD; Dr. Hakan Gunter MD ~ [facility] Work Phone: 1(507) 910-980909-09-2025 [facility]09-08-2025 Progress note Author Jaswant Montgomery [facility] Note Date/Time January 28, 2025 10:49am [facility] Medical Records Department [address] [place] [address] Progress Note - Hospitalist 01/28/25 1045 MR#: [id number] Acct: [id number] Name: PERLA THOMPSON Rep #:[id number] : 1935 89 From: Jaswant pablo MD PCP: Dr. Nando Wiggins MD Status:A DM IN Location: MS3 HG053-3 Subjective Subjective Doing well, denies any pain. [...] (Auto) 69.4, Lymph % (Auto) 14.0 L, Boyle % (Auto) 13.3 H, Eos % (Auto) [...] DVT: Eliquis Charges/Coding Visit Charges Inpatient E&M: 66320 Subs Hosp L2 01/28/25 1049 <Electronically signed by Jaswant Montgomery MD> Cosigner Signature (if applicable): CC: ~ Signed [facility] Work Phone: 1(516) 814-174009-07-2025 Progress note Author Kimberly Orozco [facility] Note Date/Time January 27, 2025 3:23pm [facility] Medical Records Department [address] [place] [address] Progress Note 01/27/25 1210 MR#: [id number] Acct: [id number] Name: PERLA THOMPSON Rep #:[id number] : 1935 89 From: Kimberly Orozco MD PCP: Dr. Nando Wiggins MD Status:A DM IN Location: [facility] AR405-7 Subjective Subjective Patient seen and examined. Is [...] 81.2 H, Lymph % (Auto) 7.9 L, Boyle % (Auto) 9.5, Eos % (Auto) 0.3, [...] right proximal femur. Correlation with routine full vfpeo-vj-pesp radiographs as clinically appropriate for more complete assessment. Reading Location: [facility] Physical Exam Const alert, oriented x3 and [...] SCDs.resume eliquis Charges/Coding Visit Charges Inpatient E&M: 50493 Subs Hosp L2 01/27/25 1523 <Electronically signed by Kimberly Orozco MD> Kimberly Orozco MD Cosigner Signature (if applicable): CC: ~ Signed [facility] Work Phone: 1(261) 575-383909-07-2025 Progress note Author Hakan Gunter [facility] Note Date/Time January 27, 2025 11:27[facility] Medical Records Department [address] [place] [address] Progress Note - Orthopedic 01/27/25 1126 MR#: [id number] Acct: [id number] Name: PERLA THOMPSON Breanne Rep #:[id number] : 1935 89 From: Hakan Gunter MD PCP: Dr. Nando Wiggins MD Status:A DM IN Location: [place] [address]-1 Subjective Subjective POD 1 doing well. mild [...] 81.2 H, Lymph % (Auto) 7.9 L, Boyle % (Auto) 9.5, Eos % (Auto) 0.3, [...] right proximal femur. Correlation with routine full vzodr-fb-ladp radiographs as clinically appropriate for more complete assessment. Reading Location: [facility] Physical Exam Const alert, no apparent distress [...] Signature (if applicable): CC: ~ Signed [facility] Work Phone: 1(893) 373-598909-07-2025 Progress note Author [facility] Note Date/Time January 27, 2025 6:42am [facility] Medical Records Department [address] [place] [address] Progress Note - Hospitalist 01/27/25 0641 MR#: [id number] Acct: [id number] Name: PERLA THOMPSON Rep #:[id number] : 1935 89 From: Nazanin Noyola MD PCP: Dr. Nando Wiggins MD Status:A DM IN Location: [place] [address] Hospitalist Note Patient with decreased UOP, will administer low cc/hr volume bolus and reassess. 01/27/25 0642 <Electronically signed by Nazanin Noyola MD> Cosigner Signature (if applicable): CC: ~ Signed [facility] Work Phone: 1(243) 960-751709-06-2025 Consult note Author [facility] Note Date/Time January 26, 2025 4:47pm [facility] Medical Records Department [address] [place] [address] Anesthesia Postop Eval II 01/26/25 1647 MR#: [id number] Acct: [id number] Name: PERLA THOMPSON Rep #:[id number] : 1935 89 From: Itz Mahan MD PCP: Dr. Nando Wiggins MD Status:A DM IN Y Race: C Location: [place] [id number] - Anesthesia Postop Eval I Sum Postop [...] Cosigner Signature: Date CC: ~ Signed [facility] Work Phone: 1(643) 515-929409-06-2025 Consult note Author [facility] Note Date/Time January 26, 2025 4:46pm [facility] Medical Records Department [address] [place] [address] Anesthesia Postop Eval I 01/26/25 1645 MR#: [id number] Acct: [id number] Name: PERLA THOMPSON Breanne Rep #:[id number] : 1935 89 From: Itz Mahan MD PCP: Dr. Nando Wiggins MD Status:A DM IN Y Race: C Location: [place] [address] Anesthesia: Postop Eval I Current Vital Signs [...] Cosigner Signature: Date CC: ~ Signed [facility] Work Phone: [phone]) 191-973409-06-2025 Progress note Author Kimberly [facility] Note Date/Time January 26, 2025 3:56pm [facility] Medical Records Department [address] [place] [address] Progress Note 01/26/25 1103 MR#: [id number] Acct: [id number] Name: PERLA THOMPSON Rep #:[id number] : 1935 89 From: Kimberly Orozco MD PCP: Dr. Nando Wiggins MD Status:A DM IN Location: [place] [address] Subjective Subjective Patient seen and examined with [...] (Auto) 68.9, Lymph % (Auto) 18.0 L, Boyle % (Auto) 9.6, Eos % (Auto) 2.4, [...] 71.1 H, Lymph % (Auto) 15.9 L, Boyle % (Auto) 10.8 H, Eos % (Auto) [...] Comminuted impacted right intertrochanteric fracture. Reading Location: [facility] Chest X-Ray 01/25/25 15:57 IMPRESSION: Low lung volumes. Congestion. Reading Location: [facility] Knee X-Ray 01/25/25 18:05 IMPRESSION: Surgical changes as above. No acute abnormality. Multilevel degenerative disc disease. Reading Location: [facility] Physical Exam Const alert, oriented x3 [...] orthopedic surgery. Charges/Coding Visit Charges Inpatient E&M: 48706 Subs Hosp L2 01/26/25 1556 <Electronically signed by Kimberly Orozco MD> Kimberly Orozco MD Cosigner Signature (if applicable): CC: ~ Signed [facility] Work Phone: 1(267) 587-319209-06-2025 Radiology Diagnostic study [facility]09-06-2025 Procedure [facility]09-06-2025 Consult note Author Itz Mahan [facility] Note Date/Time January 26, 2025 8:47am [facility] Medical Records Department [address] [place] [address] Pre-Anesthesia Evaluation 01/26/25 0846 MR#: [id number] Acct: [id number] Name: PERLA THOMPSON Breanne Rep #:[id number] : 1935 89 From: Itz Mahan MD PCP: Dr. 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 Female HX of Motion Sickness HX of N/V After Surgery Non-Smoker Duration of Surgery greater than 60 minutes Number of Risk Factors PONV Score Height & Weight Height & Weight: Anesthesia: Height & Weight Height 5 ft 10 in 01/25/25 18:57 Weight: 98.6 kg 01/26/25 06:30 Body Mass Index (BMI) 31.1 01/26/25 06:30 Respiratory Assessment Respiratory Assessment - barbering instructor: Respiratory Tract Infection Hx - barbering instructor Hx Respiratory Tract Infection No 01/25/25 20:21 STOP Sleep Apnea STOP Sleep Apnea - barbering instructor: STOP Sleep Apnea - barbering instructor Hx Hypertension No 01/25/25 18:43 Hx Sleep [...] Tobacco Use History Tobacco Use History - barbering instructor: Tobacco Use History - barbering instructor Tobacco Use Non-smoker 09/26/20 11:23 Smoking Status Never smoker 01/25/25 18:43 Hx Tobacco Use No 01/25/25 18:43 Years Smoking Packs Smoked per Day Smoking Cessation Date was within the last 15 years Hx Smoking Cessation Date Hx Smoking Cessation Counseling Hematologic Medial History Hematologic Hx - barbering instructor: 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 Hx of Blood Transfusion Yes 01/25/25 18:43 [...] confused, unrespo /Reproduction History /Reproductive History - barbering instructor: /Reproductive Hx- barbering instructor Hx Now No 01/25/25 20:21 Gestational Age [...] mls @ 15 mls/hr 01/25/25 19:36 IV .[id number] PRN Saline Flush Sodium Chloride 250 mls @ 15 mls/hr 01/25/25 19:36 IV .[id number] PRN Additional IVPB Infusion Insulin Human Lispro 0 unit 01/25/25 22:00 01/26/25 06:32 Insulin Lispro 100 Unit/Ml Insuln.Pen SC Not Given ACHS [facility] Protocol Melatonin 10 mg 01/25/25 18:49 Melatonin [...] 10:00 Torsemide 100 Mg Tablet PO [id number] [facility] Medical History Closed right hip fracture 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 Wound, open, foot End stage renal disease MRSA (methicillin resistant staph aureus) culture positive Cutaneous abscess of right foot Diabetic infection of right foot Acute hyperkalemia Open wound Lives in senior care Dietary restriction History of stress test History of echocardiogram Cardiology follow-up encounter History of atrial fibrillation Insulin dependent diabetes mellitus Other specified peripheral vascular diseases 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 Work Phone: 1(843) 291-607909-05-2025 Discharge summary Author Beau Dunlap [facility] Note Date/Time January 25, 2025 9:34pm [facility] Medical Records Department [address] [place] [address] Emergency Department Summary 01/25/25 MR#: [id number] Acct: [id number] Name: PERLA THOMPSON Rep #:[id number] : 1935 89 From: Beau Dunlap MD PCP: Dr. Nando Wiggins MD Status:A DM IN [facility] History of Present Illness Chief Complaint: Lower Extremity Injury Narrative Narrative: 89-year-old male past medical history of diabetes, right BKA remotely, presents from residential facility status post fall. History and physical [...] no other symptoms. See fentanyl per squad. 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 Wound, open, foot End stage renal disease MRSA (methicillin resistant staph aureus) culture positive Cutaneous abscess of right foot Diabetic infection of right foot Acute hyperkalemia Open wound Lives in senior care Dietary restriction History of stress test History of echocardiogram Cardiology follow-up encounter History of atrial fibrillation Insulin dependent diabetes mellitus Other specified peripheral vascular diseases 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 Reading Location: [facility] Chest X-Ray 01/25/25 15:57 IMPRESSION: Low lung volumes. Congestion. Reading Location: [facility] Management Discussion w/another healthcare provider: Hospitalist (Dr. Osuna) and Audio/Video Technician (Dr. Gunter) Discharge Plan Dx/Rx/DC Orders Clinical Impression: Fall, Closed hip fracture, Current use of half-way anticoagulation, End stage renal disease Disposition Disposition: Acute Care Hospital [facility] Discharge Date/Time: 01/25/25 18:37 What to do if you have Problems For any increased pain, shortness of breath, bleeding, nausea or vomiting, chestpain, or any unexpected problems, contact your Primary Care Provider. Call [facility] ([phone]) or report to the closest Emergency Room. Call 911 if necessary. 01/25/252133 <Electronically signed by Beau Dunlap MD> Cosigner Signature (if applicable): CC: Dr. Nando Wiggins MD ~ Signed [facility] Work Phone: 1(756) 604-315609-05-2025 History and physical note Author Jayla Osuna [facility] Note Date/Time January 25, 2025 7:58pm [facility] Medical Records Department [address] [place] [address] H&P Exam - Hospitalist 01/25/25 1756 MR#: [id number] Acct: [id number] Name: PERLA THOMPSON Rep #:[id number] : 1935 89 From: Jayla Osuna MD PCP: Dr. Nando Wiggins MD Status:A DM IN Location: [facility] KZ527-0 HPI - General General Date of Admission: 01/25/25 Date of Service: 01/25/25 Chief Complaint: Right leg pain HPI Narrative PERLA THOMPSON, is a 89-year-old male history of type 2 diabetes, right BKA, end- stage renal disease on hemodialysis, diabetes, PAD, history chronic heart failure with preserved ejection fraction who presented to [facility] ED 01/25/2025 due to a fall. Reportedly [...] dry and wants something to drink. 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 Reading Location: [facility] Chest X-Ray 01/25/25 15:57 IMPRESSION: Low lung volumes. Congestion. Reading Location: [facility] Assessment & Plan Assessment/Plan [...] Osuna MD Charges/Coding Visit Charges Inpatient E&M: 98362 Init Hosp L2 01/25/251957 <Electronically signed by Jayla Osuna MD> Cosigner Signature (if applicable): CC: Dr. Nando Wiggins MD; Dr. Jayla Osuna MD~ Signed [facility] Work Phone: 1(115) 766-842009-05-2025 Consult note Author Hakan Gunter [facility] Note Date/Time January 25, 2025 6:10pm [facility] Medical Records Department [address] [place] [address] Consultation - Orthopedics 01/25/251804 MR#: [id number] Acct: [id number] Name: PERLA THOMPSON Rep #:[id number] : 1935 89 From: Hakan Gunter MD PCP: Dr. Nando Wiggins MD Status:A DM IN Location: [place] GF998-1 HPI Consult Data Date of Consult: 01/25/25 HPI Narrative HPI Narrative: PERLA THOMPSON, is a 89 M who presents with a right hip fracture. Fell out of a chair in senior care. does not ambulate for months now. uses a radha lift. his son and daughter are here at the bed side. on dialysis. has right below knee amp. 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 Wound, open, foot End stage renal disease MRSA (methicillin resistant staph aureus) culture positive Cutaneous abscess of right foot Diabetic infection of right foot Acute hyperkalemia Open wound Lives in senior care Dietary restriction History of stress test History of echocardiogram Cardiology follow-up encounter History of atrial fibrillation Insulin dependent diabetes mellitus Other specified peripheral vascular diseases 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 Reading Location: [facility] Chest X-Ray 01/25/25 15:57 IMPRESSION: Low lung volumes. Congestion. Reading Location: [facility] 2 part IT hip fracture. bones consistent [...] For now MEGAN, NPO at [facility] in hopes of doing the procedure tomorrow. 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 Pros and cons risks and [...] CC: Dr. Nando Wiggins MD~ Signed [facility] Work Phone: 1(683) 800-890109-05-2025 Consult note Author Hakan Gunter [facility] Note Date/Time January 25, 2025 4:46pm [facility] Medical Records Department [address] [place] [address] Consultation - Orthopedics 01/25/25 1644 MR#: [id number] Acct: [id number] Name: PERLA THOMPSON Rep #:[id number] : 1935 89 From: Hakan Gunter MD PCP: Dr. aNndo Wiggins MD Status:R EG ER Location: ED HPI Consult Data Date of Consult: 01/25/25 HPI Narrative HPI Narrative: PERLA THOMPSON is a 89 M who presents with a right hip fracture, in the setting ofa prior below knee amp on that side. 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 Wound, open, foot End stage renal disease MRSA (methicillin resistant staph aureus) culture positive Cutaneous abscess of right foot Diabetic infection of right foot Acute hyperkalemia Open wound Lives in senior care Dietary restriction History of stress test History of echocardiogram Cardiology follow-up encounter History of atrial fibrillation Insulin dependent diabetes mellitus Other specified peripheral vascular diseases 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 Reading Location: [facility] Chest X-Ray 01/25/25 15:57 IMPRESSION: Low lung volumes. Congestion. Reading Location: [facility] Assessment & Plan Assessment/Plan (1) Closed right [...] CC: Dr. Nando Wiggins MD~ Signed [facility] Work Phone: 1(803) 528-772209-05-2025 Radiology Diagnostic study [facility]09-05-2025 Radiology Diagnostic study [facility]09-05-2025 Radiology Diagnostic study [facility] 12-26-2024 [facility] Evaluation note * Diagnosis Onset Date [...] January 25, 2025 5:56pm Current use of half-way anticoagulation acute January 25, 2 025 5:56pm End stage renal disease acute S eptemb2024 5:56pm Fall acute January 25, 2025 5:56pm Anemia of chronic disease chronic January 25, 2025 5:56pm Closed hip fracture acute [facility] 2024 9:54am [facility] Work Phone: 1(994) 350-101907-22-2025 Telephone encounter Note* Telephone Encounter - Ray [...] Dept Phone 01/08/2025 10:30 AM DEVICE CLINIC [facility] [phone] Any scheduling issues:Yes, Spoke with patients daughter she stated if her dad could follow up locally she would call and cancel appointment with [facility]. Questions moving forward: No FATUMA WorrellOLOGIST [facility]07-22-2025 Miscellaneous Notes* Telephone Encounter - Ray Eagle [...] Location Dept Phone 01/08/2025 10:30 AM DEVICE [facility] [phone] Any scheduling issues:Yes, Spoke with patients daughter she stated if her dad could follow up locally she would call and cancel appointment with [facility]. Questions moving forward: No FATUMA WorrellOLOGIST documented in [facility]Ohio [facility]07-08-2025 [facility]-20[facility]-07-2025 [facility]-06-2025 Note [facility]07-06-2025 [facility]-05-2025 [facility]-05-2025 [facility] 11-24-2024 [facility]07-04-2025 [facility]-04-2025 [facility]-04-2025 [facility]07-03-2025 Radiology Diagnostic study [facility]-20-2025 Discharge summary Author Max Roberts [facility] Note Date/Time November 08, 2024 11:3 9pm [facility] Medical Records Department [address] [facility] [place] [address] Emergency Department Summary 11/08/24 MR#: [id number] Acct: [id number] Name: PERLA THOMPSON Rep #:[id number] : 1935 89 From: Max Ayers PCP: Dr. Nando Wiggins MD Status:R EG ER Location: ED HPI <KRISTOFER Taylor - Last Filed: 11/08/24 22:12> HPI - Fall History of Present Illness Chief Complaint: Fall Narrative Narrative: 89-year-old male with PMH of DM2, ESRD on HD, A-fib on Eliquis, right BKA presents after a fall at his senior care. 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 Wound, open, foot End stage renal disease MRSA (methicillin resistant staph aureus) culture positive Cutaneous abscess of right foot Diabetic infection of right foot Acute hyperkalemia Open wound Lives in senior care Dietary restriction History of stress test History of echocardiogram Cardiology follow-up encounter History of atrial fibrillation Insulin dependent diabetes mellitus Other specified peripheral vascular diseases 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 Reading Location: [place] [address] Foot X-Ray 11/08/24 21:20 IMPRESSION: No acute fracture is appreciated. Other abnormalities as detailed above. Reading Location[facility] attending interpretation of left foot shows no acute fracture or dislocation. <Dr. Max Roberts DO - Last Filed: 11/08/24 23:39> [facility] Radiography Diagnostic Testing: Clinical Impression(s) from Imaging Studies Brain CT 11/08/24 19:51 IMPRESSION: No acute intracranial abnormalities. Reading Location: [place] [address] Foot X-Ray 11/08/24 21:20 IMPRESSION: No acute [...] following. My figueroa findings include: Sent from residential facility fall out of his recliner. Normally [...] 100 unit/mL Insulin Pen See Protocol subcut [facility] Protocol: 3. Sliding Scale Insulin [...] please return to the ER. Print Language: Swedish Disposition Disposition: Home, Self Care What to do if you have Problems For any increased pain, shortness of breath, bleeding, nausea or vomiting, chestpain, or any unexpected problems, contact your Primary Care Provider. Call [facility] ([phone]) or report to the closest Emergency Room. Call 911 if necessary. 11/08/24 1111 <Electronically signed by Max Ayers> Cosigner Signature (if applicable): 06/2211 <Electronically signed by Xena MINER> CC: Dr. Nando Wiggins MD ~ Signed [facility] Work Phone: 1(330) 117-704506-19-2025 Radiology Diagnostic study [facility]06-19-2025 Radiology Diagnostic study [facility]05-14-2025 Evaluation note* Diagnosis Onset Date Resolution Status [...] January 25, 2025 5:56pm Current use of extermination supervisor anticoagulation acute January 25 025 5:56pm End stage renal disease acute S epte2024 5:56pm Fall acute January 25, 2025 5:56pm [facility] Work Phone: 1(787) 255-569005-14-2025 Evaluation note* Diagnosis Onset Date Resolution Status [...] January 25, 2025 5:56pm Current use of half-way anticoagulation acute January 25 5:56pm End stage renal disease acute S eptember 2024 5:56pm Fall acute January 25, 2025 5:56pm Anemia of chronic disease chronic January 25, 2025 5:56pm [facility] Work Phone: [phone]) [phone] Progress note Author Randal Damico [facility] Note Date/Time September 24, 2024 11:03a [facility] Medical Records Department [address] [place] [address] Progress Note - Surgery 09/24/24 1101 MR#: [id number] Acct: [id number] Name: PERLA THOMPSON Rep #:[id number] : 1935 89 From: Randal Damico MD [...] encounter PLAN: Continue ABD for padding Continue Agile Coach splint for knee extension and plan for stump forming with [employer] eventual prosthesis at likely 3 months Plan from vascular is to follow-up in 2 weeks for staple removal. Agree with plan. Patient is not having any residual limb pain or phantom limb pain. Follow-up asneeded. Charges/Coding Procedures Integumentary 111xxx-113xx: 12220 Global Visit 09/24/24 1103 <Electronically signed by Randal Damico MD> Cosigner Signature (if applicable): CC: ~ Signed [facility] Work Phone: 1(962) 398-819105-05-2025 Evaluation note* Diagnosis Onset Date Resolution Status [...] Sinus bradycardia chronic December 26, 2024 9:34am [facility] Work Phone: 1(382) 750-342204-11-2025 [facility]04-09-2025 Evaluation note* Diagnosis Onset Date Resolution Status Admit Date Amputation of right lower extremity below knee acute August 29, 2024 1:06pm End stage renal disease acute A pril 2024 1:06pm Anemia of chronic disease chronic August 29, 2024 1:06pm Atherosclerosis of [place] artery of right leg with [...] Sinus bradycardia chronic December 26, 2024 9:34am [facility] [employer] Work Phone: 1(163) 855-624004-09-2025 [facility]03-31-2025 Evaluation note* Diagnosis Onset Date Resolution Status [...] chronic August 29, 2024 1:06pm Atherosclerosis of [place] artery of right leg with [...] 9:45am Sinus bradycardia chronic October 9:45am [facility] Work Phone: 1([phone]) 923-110502-28-2025 [facility]02-21-2025 Evaluation note* Diagnosis Onset Date Resolution Status [...] chronic August 29, 2024 1:06pm Atherosclerosis of [place] artery of right leg with [...] 9:45am Sinus bradycardia chronic October 9:45am [facility] Work Phone: 1(645) 848-497102-21-2025 [facility]02-19-2025 [facility]-2025 History of Present illness Narrative* Husam Yan [...] said that the patient is in a senior care and that is why he hasn't come in- he had an amputation of his foot. msg sent to pcp to make him aware that he is in a senior care Reason for Outreach Care Gap/HCC or Scheduling [...] 11, 2024 2:35 PM documented in this encounterOhio [facility]02-19-2025 [facility]Sum[facility]02-17-2025 Telephone encounter Note* Telephone Encounter - Radha [...] RAY Roach July 09, 2024 11:51 AM [facility]02-17-2025 Miscellaneous Notes* Telephone Encounter - Radha [...] 09, 2024 11:51 AM documented in this encounterOhio Valley Surgical Hospital02-10-2025 [facility]02-10-2025 Evaluation note* Diagnosis Onset Date Resolution Status [...] chronic August 29, 2024 1:06pm Atherosclerosis of [place] artery of right leg with [...] fistula acute October 17, 2024 10:05am [facility] Work Phone: 1([phone]) 868-234301-29-2025 Evaluation note* Diagnosis Onset Date Resolution Status [...] chronic August 29, 2024 1:06pm Atherosclerosis of [place] artery of right leg with [...] fistula acute October 17, 2024 10:05am 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 inactive August 29, 2024 1:06pm Wound, open, foot inactive August 292024 1:06pm Amputation of right lower extremity below knee acute September 24 9:58am [facility] Work Phone: 1([phone]) 836-371201-15-2025 Evaluation note* Diagnosis Onset Date Resolution Status [...] chronic August 29, 2024 1:06pm 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 Work Phone: [phone]) 107-359201-14-2025 Telephone encounter Note* Telephone Encounter - Catalina Ruth RN - 06/05/2024 3:25 PM EST Closing encounter as Pt and family have not called back in. If they do we can open a new TE. [facility]01-14-2025 Miscellaneous Notes* Telephone Encounter - Catalina Ruth RN - 06/05/2024 3:25 PM EST Closing encounter as Pt and family have not called back in. If they do we can open a new TE. * Telephone Encounter - Alanna Veloz LPN - 05/31/2024 2:18 PM EST Phoned son-in-law, Jye, and explained to him we will still [...] to clear him. If he is inthe senior care with Dr. Wiggins, they should have access [...] that Cardiology Dr. Yunior Tong from the [facility] has signed off on medical [...] If he is a resident at the senior care, it would be most convenient for the patient to have Dr. Wiggins do his pre op there. If they are unable or unwilling, he would need OV with us before I could clear him. * Telephone Encounter - Alanna Veloz LPN - 05/30/2024 10:55 AM EST Phoned patients son, Jey back to advise if patient is at [facility] and on a skilled unit under Dr Wiggins's care we recommend she fill the clearance form out. Jey explained that Dr Wiggins rounds on Tuesdays when patient is at the wound clinic for his weekly debridments. Explained to son that wetypically need to obtain labs and EKG and patient would need to be seen in office. 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 Please advise. Alanna Veloz LPN * Telephone Encounter - Catalina Ruth RN - 05/30/2024 10:35 AM EST Jey Pts son in law called in and reports Pt is now in a residential facility. He states [facility] his big toe and the ball of his foot in April at the ER. He states they want to remove the rest of the toes as soon as they can, but they don't want to have to do it in the ER. He states that surgical services assistant for this provider is going to be sending over a surgical release for for the providers office to sign. Pt was last seen by Lauren Podlogar [employer] LIP WETTER on 03/28/24, he had an A1C and CMP done. I don't know if Pt would been to come in and be seen again before forms could be signed. Forms are going to be sent to office Attn: Alanna and Deborah. Please call and advise if anything else will need to be done. documented in this encounterOhio [facility]01-[facility]-2025 Telephone encounter Note * Telephone Encounter [...] triage nurse the ok/information. Alanna Veloz LPN [facility]01-09-2025 Telephone encounter Note* Telephone Encounter - Husam Yan MD - 05/31/2024 12:42 PM EST He will still need physical exam and possibly labs before I would be able to clear him. If he is inthe senior care with Dr. Wiggins, they should have access to his labs and might be easier for them to see and clear him. If unable or unwilling, I would need to see him in our office. [facility]01-09-2025 Telephone encounter Note* Telephone Encounter - Mary Hodges LPN - 05/31/2024 11:41 AM EST Son dropped off copies of POA and Living Will forms at this time. Mary Hodges LPN [facility]01-08-2025 Telephone encounter Note* Telephone Encounter - Deborah Bedoya LPN - 05/30/2024 4:52 PM EST Son in law calling in to advise office that Cardiology Dr. Yunior Tong from the [facility] has signed off on medical [...] after PCP reviews paperwork. Deborah Bedoya LPN [facility]01-08-2025 Telephone encounter Note* Telephone Encounter - Deborah Bedoya LPN - 05/30/2024 1:51 PM EST Telephone call placed to patients son in law Jey. Made aware patient would need to be seen in office or could utilize nursing homes Dr. Mauricio understanding. Deborah Bedoya LPN [facility]01-08-2025 Telephone encounter Note* Telephone Encounter - Husam Yan MD - 05/30/2024 11:13 AM EST If he is a resident at the senior care, it would be most convenient for the patient to have Dr. Wiggins do his pre op there. If they are unable or unwilling, he would need OV with us before I could clear him. [facility]01-08-2025 Telephone encounter Note* Telephone Encounter - Alanna Veloz LPN - 05/30/2024 10:55 AM EST Phoned patients sonJey back to advise if patient is at [facility] and on a skilled unit under Dr Wiggins's care we recommend she fill the clearance form out. Jey explained that Dr Wiggins rounds on Tuesday mornings when patient is at the wound clinic for his weekly debridments. Explained to son that wetypically need to obtain labs and EKG and patient would need to be seen in office. 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 Please advise. Alanna Veloz LPN [facility]01-08-2025 Telephone encounter Note* Telephone Encounter - Catalina Ruth RN - 05/30/2024 10:35 AM EST Jey Pts son in law called in and reports Pt is now in a residential facility. He states Dr [facility] took his big toe and the ball of his foot in April at the ER. He states they want to remove the rest of the toes as soon as they can, but they don't want to have to do it in the ER. He states that surgical services assistant for this provider is going to be sending over a surgical release for for the providers office to sign. Pt was last seen by Lauren Podlogar [employer]TER on 03/28/24, he had an A1C and CMP done. I don't know if Pt would been to come in and be seen again before forms could be signed. Forms are going to be sent to office Attn: Marilia. Please call and advise if anything else will need to be done. [facility]12-19-2024 [facility]12-13-2024 [facility]12-03-2024 [facility]12-02-2024 Note [facility]12-02-2024 History of Present illness Narrative* Sridevi Miller [...] 23, 2024 2:35 PM documented in this encounterOhio Valley Surgical Hospital11-26-2024 Telephone encounter Note * Telephone Encounter - Mayela Hopson LPN - 04/17/2024 12:51 PM EST noted. [facility]11-26-2024 Miscellaneous Notes* Telephone Encounter - Mayela [...] below. She said her father is in [facility] with a fott infection right now. She will update you when she can. * Telephone Encounter - Lauren Arzola APRN.CNP - 04/16/2024 7:08 AM EST Update me Tuesday with readings. Lauren Arzola APRN.CNP * Telephone Encounter - Mayela Hopson LPN - 04/13/2024 2:47 PM EST Phoned daughter Radha and went over notes from Lauren Arzola [employer] WETTER with understanding. Radha said father would not [...] units daily. Please advise documented in this encounterOhio Valley Surgical Hospital11-25-2024 Telephone encounter Note * Telephone Encounter - Lauren Arzola APRN.CNP - 04/16/2024 9:19 AM EST Okay. Possible why his sugars have bee elevated as well. Lauren Arzola APRN.CNP [facility]11-25-2024 Telephone encounter Note* Telephone Encounter - Mayela Hopson LPN - 04/16/2024 9:08 AM EST Phoned Radha and went over notes below. She said her father is in [facility] with a fott infection right now. She will update you when she can. [facility]11-25-2024 [facility]11-25-2024 Telephone encounter Note* Telephone Encounter - Lauren Arzola APRN.CNP - 04/16/2024 7:08 AM EST Update me Tuesday with readings. Lauren Arzola APRN.CNP [facility]11-23-20[facility] History of Present illness Narrative* Usman Quesada [...] distress and family will self transport to [place] [facility] documented in this encounterOhio Valley Surgical Hospital11-22-2024 Telephone encounter Note * Telephone Encounter - Mayela Hopson LPN - 04/13/2024 2:47 PM EST Phoned daughter Radha and went over notes from Lauren Arzola [employer] LIP WETTER with understanding. Radha said father would not like to see pharmacist, she will try the increase in Lantus. [facility]11-22-2024 Telephone encounter Note* Telephone Encounter - Lauren Arzola APRN.LUZ - 04/13/2024 2:36 PM EST Increase Lantus to 37 units daily. Would he be willing to talk with our clinical pharmacist to helpwith managing his diabetic medications as it doesn't seem we are getting much better. Lauren Arzola APRN.INFORMATICS PHYSICIAN LIAISON [facility]11-22-2024 Telephone encounter Note* Telephone Encounter - Mayela Hopson LPN - 04/13/2024 2:31 PM EST Patient daughter Radha calling fathers blood sugar average is 306. She said he is not very active, his activity is going to dialysis 3 times a week. His Lantus is 33 units daily. Please advise [facility]11-15-2024 Telephone encounter Note* Telephone Encounter - Deborah Bedoya LPN - 04/06/2024 8:18 AM EST Patients daughter Radha telephoned, she is medical POA and will be bringing in paperwork. Providers recommendations below given. Voices understanding. Deborah Bedoya LPN [facility]11-15-2024 Miscellaneous Notes* Telephone Encounter - Deborah [...] EST Patient daughter Radha calling to give [employer] WETTER her father blood sugar average since increased [...] dates with separate readings. documented in this encounterOhio Valley Surgical Hospital11-15-2024 Telephone encounter Note * Telephone Encounter [...] sooner if getting lows. Lauren Arzola APRN.CNP [facility]11-14-2024 Telephone encounter Note* Telephone Encounter - Mayela Hopson LPN - 04/05/2024 11:15 AM EST Patient daughter Radha calling to give [employer]TER her father blood sugar average since increased [...] not give her dates with separate readings. [facility]11-06-2024 Instructions* Patient Instructions* Lauren Arzola APRN.CNP - 03/28/2024 1:09 PM EST Check blood sugars three times a day and as needed- update me in one week with readings, sooner if needed documented in this encounterOhio Valley Surgical Hospital11-06-2024 [facility] History of Present illness Narrative* Lauren rAzola APRN.CNP - 03/28/2024 12:55 PM EST 03/28/2024 [...] changes, polyuria or polydipsia. Daughter concerned about hospitality manager giving him a diuretic She reports he [...] Outpatient Medications Medication Sig flash glucose sensor (NoribachiSTYLE TORIBIO 2 SENSOR) kit 2 Each four times daily. insulin glargine (LANTUS SOLOSTAR U-100 INSULIN) 100 unit/mL (3 mL) Inject 25 Units subcutaneously once daily. flash glucose scanning reader (NoribachiSTYLE TORIBIO 14 DAY READER) 1 Units four times daily. blood sugar diagnostic (BLOOD GLUCOSE TEST) test strip Test blood sugar(s) 2 times daily. Dx: Type 2 DM -E11. Insulin: No blood sugar diagnostic (ACCU-CHEK LISA PLUS TEST STRP) test strip Test blood sugar(s) 2x daily. DxE11.65. Insulin: No. mecobalamin (B12 ACTIVE ORAL) Take 1 tablet by mouth once daily. Every other day Insulin [place], Disposable, (BD ULTRA-FINE SHAHEEN PEN NEEDLE) 32 [...] Units by mouth once daily. Blood-Glucose Meter misc Dispense 1 kit. Dx: E11.65 Aspirin 81 [...] daughter they need to discuss concerns with hospitality manager, verbalizes understanding Lauren Arzola APRN.CNP Prescription instructions [...] Level: 4 - Moderate documented in this encounterOhio Valley Surgical Hospital08-16-2024 History of Present illness Narrative* Lauren [...] week. Follows with Dr. Faria Follows with [facility] cardiology for hx of [place] Type [...] ESRD (end stage renal disease) on dialysis ([facility]) Comment: Thai Moreno, Tiburcio No date: Glaucoma [...] Units subcutaneously once daily. flash glucose sensor (Soma WaterYLE TORIBIO 2 SENSOR) kit 2 Each four times daily. semaglutide (OZEMPIC) 0.25 mg or 0.5 mg(2 mg/1.5 mL) pen Inject 0.5 mg subcutaneously one time a week. semaglutide (OZEMPIC) 0.25 mg or 0.5 mg(2 mg/1.5 mL) pen Inject 0.5 mg subcutaneously one time a week. flash glucose scanning reader (NoribachiSTYLE TORIBIO 14 DAY READER) 1 Units four times daily. blood sugar diagnostic (BLOOD GLUCOSE TEST) test strip Test blood sugar(s) 2 times daily. Dx: Type 2 DM -E11.65 Insulin: No blood sugar diagnostic (ACCU-CHEK LISA PLUS TEST STRP) test strip Test blood sugar(s) 2x daily. DxE11.65. Insulin: No. mecobalamin (B12 ACTIVE ORAL) Take 1 tablet by mouth once daily. Every other day Insulin [place], Disposable, (BD ULTRA-FINE SHAHEEN PEN NEEDLE) 32 gauge x / Use one needle for each dose. 1x/day. [...] Units by mouth once daily. Blood-Glucose Meter [facility] Dispense 1 kit. Dx: E11.65 Aspirin 81 [...] edema, with long-term current use of insulin ([facility]) - ICD9: 250.50, 362.04, 362.07, V58.67, ICD10: E11.3213, Z79.4 (primary diagnosis) - due for A1c - continue Lantus - not able to tolerate Ozempic due to GI side effects - FREESTYLE TORIBIO 2 SENSOR KIT - COMPREHENSIVE METABOLIC PANEL - HEMOGLOBIN A1C - follow-up in 6 months sooner if needed 2. ESRD (end stage renal disease) on dialysis ([facility]) - ICD9: 585.6, V45.11, ICD10: N18.6, Z99.2 [...] Level: 4 - Moderate documented in this encounterOhio Valley Surgical Hospital08-16-2024 [facility]Sum[facility]07-[facility]-2024 Telephone encounter Note* Telephone Encounter - [place] Concepcion Hughes - 12/15/2023 4:28 PM EDT [...] this prescription is good untilOctober. Please call faby Almazan Concepcion [facility] December 15, 2023 4:29 PM [facility]07-25-2024 Miscellaneous Notes* Telephone Encounter - [place] Concepcion Hughes - 12/15/2023 4:28 PM EDT [...] Inject 25 Units subcutaneously once daily. Per Ed Hobbs told her father has no refills. It appears this prescription is good untilOctober. Please call faby Almazan Concepcion [facility] December 15, 2023 4:29 PM documented in this encounterOhio Valley Surgical Hospital04-18-2024 Hospital Discharge instructions Patient Education 09/08/2023 [...] provider approves. General instructions Take or apply fdsu-ylh-gjczbim and prescription medicines only as told by [...] your health care provider. Take or apply ysjf-vyd-qvilukw and prescription medicines only as told by your health care provider. This includes any eye drops. This information is not intended to replace advice given to you by your health care provider. Make sure you discuss any questions you have with your health care provider. Document Released: 01/25/2012 Document Revised: 05/25/2019 Document Reviewed: 05/28/2019 [email or web address] Patient Education 2019 [employer]. Follow Up Care 09/06/2023 10:35:24 With:JEAN PIERRE ZIEGLER MD, [facility] Address: [address] [facility] [place] [address]- [phone] When: Unknown Comments:Follow-up as scheduled [facility] 04-18-2024 Summary of episode note Discharge Instructions Thank you for allowing [facility] to assist you with your healthcare needs. The following is importantdischarge information regarding your hospital visit. What to do next Follow Up Appointments Follow Up with JEAN PIERRE ZIEGLER MD, [facility] When Why: Follow-up as scheduled Where: [facility] [address] [facility] [place] [address]- [phone] The Following Activity and Diet Have Been [...] provider approves. General instructions Take or apply wyvw-sch-btxyiah and prescription medicines only as told by [...] your health care provider. Take or apply brex-psb-mofinyr and prescription medicines only as told by your health care provider. This includes any eye drops. This information is not intended to replace advice given to you by your health care provider. Make sure you discuss any questions you have with your health care provider. Document Released: 01/25/2012 Document Revised: 05/25/2019 Document Reviewed: 05/28/2019 Elsevier Patient Education 2019 [email or web address] Additional Information VACCINATE! IT SAVES LIVES! Members of the community who have not yet received the COVID-19 vaccine and would like to receive it can visit one of [facility] vaccine clinics. There are many vaccine clinic locations within the [facility]. For locations and available times, please visit https://gettheshot.coronavirus.[place].gov/. It is important to note that some COVID mobile vaccine clinics are held outdoors and may be canceled in rainy or stormy conditions. To learn more about pediatric vaccinations (ages 5-11), we invite you to visit the [employer] webpage. [email or web address]://[email or web address].[email or web address]/[email or web address]-[email or web address] stions.htmlTo learn more about the COVID-19 vaccine, we invite you to visit the CDC website for a list of frequently asked questions.https://www.cdc.gov/coronavirus/2019-ncov/vaccines/faq.html [facility] Patient Portal Access Instructions: Stay connected with your healthcare team and access your personal medical information anytime with the [facility] Patient Portal. Please follow the directions below to create your [facility] account: 1.Access the email account you provided upon registration to the hospital/physician office.2.Look for an invitation email from [facility].3.Open the email and access the invitation link: AcceptInvitation to [employer].4.Fill in the required meyers to create your account. To access your account, visit [email or web address]. Click the blue button labeled Access Patient [...] your information. You can also access the [facility] Patient Portal on the [facility] aramis. Simply click on Patient Portal and then log into your account. If you would like to receive a full copy of your medical records, please contact the [facility] Medical Records Department by calling [phone], Tuesday through Tuesday between 8 a.m. and [...] Call your local pharmacy or go to [email or web address] to find one close to you.3.Make use of household items: Use cat litter or old coffee grounds to dispose medications if other options arenot available. Mix your drugs with these household products, seal them in an airtight container andthrow it into the garbage. Call [facility]: [phone] to be sure your drugs can be [...] that I should contact my do ctor. Patient/Family Protection Specialist Signature: Date/Time: Relationship to Patient: Witness Name/Signature: Date/Time: [facility] [id number] Anesthesiology Consult note Patient: PERLA THOMPSON Age: [...] NIKKY AVENDANO MD on 09/08/2023 02:22 PM [facility] [id number] Anesthesiology Consult note Patient: PERLA THOMPSON Age: [...] Cataract extraction and implantation of intraocular lens ([id number]) on 09/05/2023 at 88 Years. Comments: 09/07/2023 8:24 ISABEL Marte RIGHT EYE Angioplasty ([id number]) in 2021 at 87 Years. Comments: 09/07/2023 10:11 ISABEL Marte LEFT UPPER EXTREMITY FISTULOGRA IWTH CUTTING BALLON ANGIOPLASTY Repair of inguinal hernia ([id number]). Comments: 09/07/2023 8:23 ISABEL Marte UNSURE OF LATERALITY, HAD IN THE LATE 1960'S OR EARLY 1970S Extn - Extraction of tooth ([id number]). Comments: 09/07/2023 8:23 ISABEL Marte ALL TEETH REMOVED AV - Arteriovenous fistula ([id number]). Comments: 09/07/2023 10:06 ISABEL Marte LEFT ARM [...] Height 170.2 cm Admission Weight 98.7 kg [place] Body Weight 66.12 kg Type of Scale [...] Documentation reviewed: Current records. Assessment and Plan [place] Society of Anesthesiologists (ASA) physical status classification: Class III. Anesthetic Preoperative Plan Premedication: intravenous. Anesthetic technique: General. Induction: intravenously. Maintenance airway: Oral endotracheal tube, RSI. Postoperative pain management: Per surgeon. Risks discussed: nausea, vomiting, headache, sore throat, dental injury, hypotension, allergic reaction, serious complications. Informed consent: signed by patient. Digitally Signed by JERMAINE SWANSON MD on 09/08/2023 12:14 PM [facility] [id number] Miscellaneous Notes* Telephone Encounter - Alanna Veloz [...] additional surgeries. * Telephone Encounter - Husam aYn MD - 09/06/2023 5:03 PM EDT Has [...] for a rx to be sent to [facility] please. Please advise documented in this encounterOhio Valley Surgical Hospital03-18-2024 Miscellaneous Notes* Telephone Encounter - Deborah [...] calling: self Call patient at: at home [phone] (home) [phone] (cell) Was an appointment scheduled: No Closing statement: Results or non-symptom based questions: Thank you for calling [facility], your call will be returned within the next business day. Demetra Hughes documented in this encounterOhio Valley Surgical Hospital03-07-2024 Miscellaneous Notes* Telephone Encounter - Meredith [...] notify patient. Demetra Hughes documented in this encounterOhio Valley Surgical Hospital02-21-2024 Miscellaneous Notes* Telephone Encounter - Valerie Burris LPN - 07/13/2023 8:14 AM EST Spoke to Radha, daughter and message given that short term prescription was sent to the pharmacy. Valerie Burris LPN * Telephone Encounter - Lauren Arzola APRN.LUZ - 07/13/2023 6:58 AM EST New prescription sent to [facility] Lauren Arzola APRN.LUZ * Telephone Encounter - Heike Lainez - 07/12/2023 8:44 AM EST Patient's daughter, Radha, said a mail order rx for Ozempic was sent in yesterday for this patient. Said patient is completely out of medication. Wants to know if a short term refill can be sent to [facility] in [place]. Do not cancel mail order rx. * [...] Thank you. Heike Hughes. documented in this encounterOhio Valley Surgical Hospital02-19-2024 Miscellaneous Notes* Telephone Encounter - Marina [...] visit in primary care: 09/23/2023 Patient using [employer] mail order please send new RX to mail order Per [employer] patient has no refills Please advise. Thank you. Marina Anguiano. documented in this encounterOhio Valley Surgical Hospital02-05-2024 History of Present illness Narrative* Danilo [...] Objective: [facility]: DP and PT pulses are [...] edema, without long-term current use of insulin ([facility]) (primary encounter diagnosis) (B35.1) Onychomycosis (M79.672) Left [...] Patient presents for diabetic foot care. SAMINA- 2/. Patient tried cutting some of his toenails last week. Clipped 1st and 2nd toe. Swelling to bilateral legs, using zip up compression stockings. documented in this encounterOhio Valley Surgical Hospital02-05-2024 Instructions* Patient Instructions* Danilo Martines - [...] (or decreased sensation in your feet) a abstract searcher should always cut your toenails. Be Careful [...] Go to your health care provider or abstract searcher to treat these conditions. documented in this encounterOhio Valley Surgical Hospital10-24-2023 Miscellaneous Notes* Telephone Encounter - Mayela Hopson LPN - 03/15/2023 9:56 AM EDT [facility]ar from [facility] requesting copy of immunization record for flu shot information be faxed to [phone]. Printed and faxed as requested. documented in this encounterOhio Valley Surgical Hospital10-17-2023 Miscellaneous Notes* Telephone Encounter - Mayela [...] patient's mail order pharmacy. [facility] send [facility]. documented in this encounterOhio Valley Surgical Hospital10-05-2023 Miscellaneous Notes* Telephone Encounter - Margret Linares LPN - 02/24/2023 1:12 PM EDT Called the pharmacy and this was billed through insurance and picked up in 02/22/23. * Telephone Encounter - Margret Linares LPN - 02/24/2023 1:09 PM EDT PERLA THOMPSON (Figueroa: [id number]) Rx #: [id number] Ozempic (0.25 or 0.5 MG/DOSE) 2MG/3ML pen-injectors Form [employer] Electronic PA Form Created 3 days ago Sent to Plan 20 hours ago Plan Response 20 hours ago Submit Clinical Questions 20 hours ago Determination Favorable 1 hour ago Message from Plan PA Case: [id number], Status: Approved, Coverage Starts on: 02/24/2023 12:15:13 PM, Coverage Ends on: 02/24/2023 12:15:13 PM. Questions? Contact . documented in this encounterOhio Valley Surgical Hospital08-15-2023 Telephone encounter Note * Telephone Encounter [...] week. Please review and advise. Magaly Bhakta [facility]08-15-2023 Miscellaneous Notes* Telephone Encounter - Magaly [...] and advise. Magaly Bhakta documented in this encounterOhio Valley Surgical Hospital07-17-2023 Instructions* Patient Instructions* Lauren Arzola APRN.INFORMATICS PHYSICIAN LIAISON - 12/06/2022 9:40 AM EDT WHAT YOU [...] review all the medicines you take, even dypf-qui-ereglak medicines. As you get older, the way [...] have certain medical conditions. documented in this encounterOhio Valley Surgical Hospital07-17-2023 History of Present illness Narrative* Podlogar, LaurenELICIA.INFORMATICS PHYSICIAN LIAISON - 12/06/2022 9:09 AM EDT 12/06/2022 Patient [...] CKD: Follows up with Dr. Khoury [facility]. Has dialysis three times a week. Tolerating [...] Jimenez LBBB (left bundle branch block) Dr. Arleen Lower extremity edema Mobitz (type) I (Wenckebach's) [...] 1 tablet by mouth once daily. Insulin [place], Disposable, (BD ULTRA-FINE SHAHEEN PEN NEEDLE) 32 [...] Units by mouth once daily. Blood-Glucose Meter [facility] Dispense 1 kit. Dx: E11.65 Aspirin 81 [...] which included preparing to see the patient, [id number] patient care, completing clinical documentation, obtaining and/or reviewing separately obtained history, performing a medically appropriate examination, counseling and educating the pat ient/family/caregiver, and ordering medications, tests, or procedures. documented in this encounterOhio Valley Surgical Hospital06-26-2023 Miscellaneous Notes* Telephone Encounter - Liza [...] of Last Labs: 09/06/2022 documented in this encounterOhio Valley Surgical Hospital06-15-2023 Miscellaneous Notes* Telephone Encounter - RAY Ruvalcaba - 11/04/2022 11:15 AM EDT Patient's daughter called back in, the test strips are called [employer], they would like these sent to [facility] in [place]. Please review. RAY Ruvalcaba November 04, 2022 [...] testing strips to be sent to [facility] [place]. Please review and advise, Liza Johnson RN documented in this encounterOhio Valley Surgical Hospital06-07-2023 Miscellaneous Notes* Telephone Encounter - Harper [...] and advise. Harper Fisher documented in this encounterOhio Valley Surgical Hospital04-17-2023 History of Present illness Narrative* Lauren Arzola, ELICIA.INFORMATICS PHYSICIAN LIAISON - 09/06/2022 9:50 AM EDT 09/06/2022 Patient [...] CKD: Follows up with Dr. Khoury [facility]. Has dialysis three times a week. Tolerating [...] sugar(s) 2x daily. DxE11.65. Insulin: No. Insulin [place], Disposable, (BD ULTRA-FINE SHAHEEN PEN NEEDLE) 32 [...] Units by mouth once daily. Blood-Glucose Meter [facility] Dispense 1 kit. Dx: E11.65 Aspirin 81 [...] edema, without long-term current use of insulin ([facility]) - ICD9: 250.50, 362.05, 362.07, ICD10: E11.3313 [...] which included preparing to see the patient, [id number]-sjkp patient care, completing clinical documentation, obtaining and/or reviewing separately obtained history, performing a medically appropriate examination, counseling and educating the pat ient/family/caregiver, and ordering medications, tests, or procedures. documented in this encounterOhio Valley Surgical Hospital03-30-2023 Miscellaneous Notes* Telephone Encounter - Aimee [...] Thank you. Aimee Nicole documented in this encounterOhio Valley Surgical Hospital01-17-2023 Miscellaneous Notes* Telephone Encounter - Lauren Arzola APRN.CNP - 06/08/2022 10:10 AM EST Ozempic sent to mail order. Lauren Podlogar, COGNOS DEVELOPER.INFORMATICS PHYSICIAN LIAISON * Telephone Encounter - Deborah Bedoya LPN - 06/08/2022 10:00 AM EST Patients daughter telephoned and notified of results and recommendations. Voices understanding. [facility] stated they wont have the ozempic until [...] will place referral order. documented in this encounterOhio Valley Surgical Hospital01-16-2023 History of Present illness Narrative* Husam [...] ESRD (end stage renal disease) on dialysis ([facility]) Tues, Thurs, Sat Glaucoma Dr Jimenez LBBB [...] sugar(s) 2x daily. DxE11.65. Insulin: No. Insulin [place], Disposable, (BD ULTRA-FINE SHAHEEN PEN NEEDLE) 32 [...] Units by mouth once daily. Blood-Glucose Meter [facility] Dispense 1 kit. Dx: E11.65 Aspirin 81 [...] edema, without long-term current use of insulin ([facility]) - ICD9: 250.50, 362.05, 362.07, ICD10: E11.3313 [...] diet. Husam Yan MD documented in this encounterOhio Valley Surgical Hospital10-24-2022 Miscellaneous Notes* Telephone Encounter - Yamel [...] new regimen. If agreeable, will call in [employer] to his pharmacy. Kidney function in ESRD range. Continue with dialysis. Cholesterol looks good. documented in this encounterOhio Valley Surgical Hospital10-14-2022 History of Present illness Narrative* Husam [...] [facility]. albumin was low on his last check. Has not made change to his diet. BP well controlled without medication. Got his flu shot at dialysis. Plans to get COVID booster at dialysis. Past medical history, appointments, medications, allergies reviewed. Previous Medical History PAST MEDICAL HISTORY Diagnosis Date Chronic diastolic heart failure (HCC) Dr. Arleen ESRD (end stage renal disease) on dialysis ([facility]) Josh, Thai, Sat Glaucoma Dr Jimenez LBBB (left bundle branch block) Dr. Bacon Lower extremity edema Mobitz (type) I (Wenckebach's) atrioventricular block Onychomycosis Osteoarthritis knees Other and unspecified hyperlipidemia Proliferative diabetic retinopathy of both eyes with macular edema associated with type 2 diabetes mellitus ([facility]) moderate, left macular edema-Dr. Jimenez Type II [...] sugar(s) 2x daily. DxE11.65. Insulin: No. Insulin [place], Disposable, (BD ULTRA-FINE SHAHEEN PEN NEEDLE) 32 [...] Units by mouth once daily. Blood-Glucose Meter [facility] Dispense 1 kit. Dx: E11.65 Aspirin 81 [...] edema, without long-term current use of insulin ([facility]) - ICD9: 250.50, 362.04, 362.07, ICD10: E11.3213 [...] YR Husam Yan MD documented in this encounterOhio Valley Surgical Hospital09-19-2022 Miscellaneous Notes* Telephone Encounter - Deborah [...] Bernarda Pt was given a Generic from [employer]. Spoke with [facility] Pharmacist and Tresiba was given to the pt. Please advise faby Almazan on what to do till medication [...] let [facility] know [facility] What insulin did they receive from [facility]. Thanks, Lauren Arzola APRN.LUZ * Telephone Encounter - Concepcion Hughes - 02/08/2022 8:09 AM EDT Faby Almazan is calling and she stated she needs to know what is going on because this was supposed to arrive from [facility]. Then a prescription went to [facility] [...] on the Glargine U100 to fax # [phone]. She is asking to have it faxed back to them. documented in this encounterOhio Valley Surgical Hospital09-13-2022 Miscellaneous Notes* Telephone Encounter - Alanna [...] REQUESTED ON 01/26/2022 FOR HIS [facility],PLEASE FILL THIS SOON POSSIBLE Patient aware RX will be sent to pharmacy. No need to notify patient. [facility] documented in this encounterOhio Valley Surgical Hospital09-06-2022 Miscellaneous Notes* Telephone Encounter - Harper [...] advise. Harper García Pss documented in this encounterOhio Valley Surgical Hospital07-25-2022 Miscellaneous Notes* Telephone Encounter - Amirah [...] 02/2022 Last refill: 02/2021 documented in this encounterOhio Valley Surgical Hospital05-06-2022 Miscellaneous Notes* Telephone Encounter - Husam Yan MD - 09/25/2021 12:56 PM EDT Reviewed. * Telephone Encounter - Breanne Ananth Carvalho RN - 09/25/2021 12:42 PM EDT Daughter, Radha, returned call from pcp office. Reports patient received call also, but he won't return calls. Given provider's message below with verbalized understanding. Reports she will try to get patient to see hospitality manager, but doesn't think he will. Reports patient [...] week with his readings. documented in this encounterOhio Valley Surgical Hospital10-13-2021 History of Present illness Narrative* Suzanne Vigil, [...] 04, 2021 9:34 AM documented in this encounterOhio Valley Surgical Hospital11-27-2020 Evaluation note* Diagnosis Onset Date Resolution Status [...] January 25, 2025 5:56pm Current use of extermination supervisor anticoagulation acute January 25, 025 5:56pm End stage renal disease acute S [id number] 5:56pm Fall acute January 25, 2025 5:56pm Anemia of chronic disease chronic January 25, 2025 5:56pm Closed hip fracture acute Septe [facility] 2024 9:54am [facility] Work Phone: [phone] History of Past illness Narrative* Problem Noted Date Resolved Date 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 12/19/2015 04/26/2016 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 02/28/2020 Noncompliance with diet and medication regimen 1 06/17/2012 11/18/2016 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 04/07/2013 11/18/2016 Leg edema 07/14/2009 02/28/2020 documented as of this encounter (statuses as of 10/07/2021) [facility]29-2016 History of Past illness Narrative* Problem Noted Date Resolved Date 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 12/19/2015 04/26/2016 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 02/28/2020 Noncompliance with diet and medication regimen 1 06/17/2012 11/18/2016 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 04/07/2013 11/18/2016 Leg edema 07/14/2009 02/28/2020 documented as of this encounter (statuses as of 12/14/2021) [facility] History of Past illness Narrative* Problem Noted Date Resolved Date 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 12/19/2015 04/26/2016 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 02/28/2020 Noncompliance with diet and medication regimen 1 06/17/2012 11/18/2016 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 04/07/2013 11/18/2016 Leg edema 07/14/2009 02/28/2020 documented as of this encounter (statuses as of 02/02/2022) [facility] History of Past illness Narrative* Problem Noted Date Resolved Date 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 12/19/2015 04/26/2016 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 02/28/2020 Noncompliance with diet and medication regimen 1 06/17/2012 11/18/2016 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 04/07/2013 11/18/2016 Leg edema 07/14/2009 02/28/2020 documented as of this encounter (statuses as of 02/08/2022) [facility] History of Past illness Narrative* Problem Noted Date Resolved Date 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 12/19/2015 04/26/2016 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 02/28/2020 Noncompliance with diet and medication regimen 1 06/17/2012 11/18/2016 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 04/07/2013 11/18/2016 Leg edema 07/14/2009 02/28/2020 documented as of this encounter (statuses as of 02/19/2022) [facility] History of Past illness Narrative* Problem Noted Date Resolved Date 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 12/19/2015 04/26/2016 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 02/28/2020 Noncompliance with diet and medication regimen 1 06/17/2012 11/18/2016 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 04/07/2013 11/18/2016 Leg edema 07/14/2009 02/28/2020 documented as of this encounter (statuses as of 03/10/2022) [facility] History of Past illness Narrative* Problem Noted Date Resolved Date 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 12/19/2015 04/26/2016 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 02/28/2020 Noncompliance with diet and medication regimen 1 06/17/2012 11/18/2016 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 04/07/2013 11/18/2016 Leg edema 07/14/2009 02/28/2020 documented as of this encounter (statuses as of 03/15/2022) [facility] of Past illness Narrative* Problem [...] of this encounter (statuses as of 06/07/2022) [facility] of Past illness Narrative* Problem [...] of this encounter (statuses as of 06/08/2022) [facility] History of Past illness Narrative* Problem [...] of this encounter (statuses as of 08/19/2022) [facility] History of Past illness Narrative* Problem [...] of this encounter (statuses as of 09/06/2022) [facility] of Past illness Narrative* Problem [...] of this encounter (statuses as of 10/28/2022) [facility] of Past illness Narrative* Problem [...] of this encounter (statuses as of 11/04/2022) [facility] of Past illness Narrative* Problem [...] of this encounter (statuses as of 11/15/2022) [facility] of Past illness Narrative* Problem [...] of this encounter (statuses as of 12/06/2022) [facility] of Past illness Narrative* Problem [...] of this encounter (statuses as of 02/26/2023) [facility] of Past illness Narrative* Problem [...] of this encounter (statuses as of 03/08/2023) [facility] of Past illness Narrative* Problem [...] of this encounter (statuses as of 03/15/2023) [facility] of Past illness Narrative* Problem [...] of this encounter (statuses as of 06/27/2023) [facility] of Past illness Narrative* Problem [...] of this encounter (statuses as of 07/11/2023) [facility] of Past illness Narrative* Problem [...] of this encounter (statuses as of 07/13/2023) [facility] of Past illness Narrative* Problem [...] of this encounter (statuses as of 07/28/2023) [facility] of Past illness Narrative* Problem [...] of this encounter (statuses as of 08/08/2023) [facility] History of Past illness Narrative* Problem [...] of this encounter (statuses as of 09/07/2023) [facility] HospitalConsult note Author Hakan Gunter [facility] Note Date/Time January 25, 2025 4:46pm [facility] Medical Records Department [address] [place] [id number] Consultation - Orthopedics 01/25/25 1644 MR#: [id number] Acct: [id number] Name: PERLA THOMPSON Rep #:[id number] : 1935 89 From: Hakan Gunter MD PCP: Dr. Nando Wiggins MD Status:R EG ER Location: ED HPI Consult Data Date of Consult: 01/25/25 HPI Narrative HPI Narrative: PERLA THOMPSON, is a 89 M who presents with a right hip fracture, in the setting ofa prior below knee amp on that side. 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 Wound, open, foot End stage renal disease MRSA (methicillin resistant staph aureus) culture positive Cutaneous abscess of right foot Diabetic infection of right foot Acute hyperkalemia Open wound Lives in senior care Dietary restriction History of stress test History of echocardiogram Cardiology follow-up encounter History of atrial fibrillation Insulin dependent diabetes mellitus Other specified peripheral vascular diseases 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 Reading Location: [facility] Chest X-Ray 01/25/25 15:57 IMPRESSION: Low lung volumes. Congestion. Reading Location: [facility] Assessment & Plan Assessment/Plan (1) Closed right [...] while nailing the fracture. MEGAN for now. 01/25/251645 <Electronically signed by Hakan Gunter MD> Cosigner Signature (if applicable): CC: Dr. Nando Wiggins MD~ Signed [facility] Work Phone: Consult note Author Hakan Gunter [facility] Note Date/Time January 25, 2025 6:10pm [facility] Medical Records Department [address] [place] [address] Consultation - Orthopedics 01/25/25 1805 MR#: [id number] Acct: [id number] Name: PERLA THOMPSON Rep #:[id number] : 1935 89 From: Hakan Gunter MD PCP: Dr. Nando Wiggins MD Status:A DM IN Location: [facility] [id number] HPI Consult Data Date of Consult: 01/25/25 HPI Narrative HPI Narrative: PERLA THOMPSON is a 89 M who presents with a right hip fracture. Fell out of a chair in senior care. does not ambulate for months now. uses a radha lift. his son and daughter are here at the bed side. on dialysis. has right below knee amp. 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 Wound, open, foot End stage renal disease MRSA (methicillin resistant staph aureus) culture positive Cutaneous abscess of right foot Diabetic infection of right foot Acute hyperkalemia Open wound Lives in senior care Dietary restriction History of stress test History of echocardiogram Cardiology follow-up encounter History of atrial fibrillation Insulin dependent diabetes mellitus Other specified peripheral vascular diseases 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 Reading Location: [facility] Chest X-Ray 01/25/25 15:57 IMPRESSION: Low lung volumes. Congestion. Reading Location: [facility] 2 part IT hip fracture. bones consistent [...] For now MEGAN, NPO at [facility] in hopes of doing the procedure tomorrow. 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 Pros and cons risks and [...] CC: Dr. Nando Wiggins MD~ Signed [facility] Work Phone: Consult note Author Tammi Mosher [facility] Note Date/Time January 29, 2025 12:45pm [facility] Medical Records Department [address] [place] [address] Counseling Note - Pharmacy 01/29/25 1141 MR#: [id number] Acct: [id number] Name: PERLA THOMPSON Rep #:[id number] : 1935 89 From: Tammi Mosher PCP: Dr. Nando Wiggins MD Status:A DM IN Y Location: [facility] [id number] Pharmacy [place] Med Reconciliation Pharmacy Service has performed discharge medication reconciliation for this patient. The patient's discharge medication list was reviewed for discrepancies and discrepancies were resolved. Medications at Discharge Home Medications aspirin 81 mg tablet,delayed release (Adult Aspirin Regimen) 81 mg PO DAILY heart health 07/01/20 Held on 01/29/25. Instructions: Resume [...] (if applicable): Date CC: ~ Signed [facility] Work Phone: Evaluation + Plan note No data available for this section [facility] Evaluation note* Diagnosis Onset Date Resolution Status Problem with dialysis access acute Problem with dialysis access acute [facility] Work Phone: Evaluation note* Diagnosis 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 edema, without long-term current use of insulin ([facility]) documented in this encounter [facility] note* Diagnosis 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 edema, without long-term current use of insulin ([facility]) documented in this encounter [facility] note* Diagnosis 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 edema, without long-term current use of insulin ([facility]) [facility]* Diagnosis 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 edema, without long-term current use of insulin ([facility]) documented in this encounter [facility] note* Diagnosis 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 edema, without long-term current use of insulin ([facility])- Primary Essential hypertension Unspecified essential hypertension Mixed hyperlipidemia 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) End stage renal disease Need for COVID-19 vaccine documented [facility] this encounter [facility]* Diagnosis 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, without long-term current use of insulin ([facility])- Primary Essential hypertension Unspecified essential hypertension Mixed hyperlipidemia 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) End stage renal disease Chronic diastolic heart failure (HCC) Chronic diastolic heart failure Bradycardia Other specified cardiac dysrhythmias Lower extremity edema Edema Noncompliance of patient with dietary regimen Personal history of noncompliance with medical treatment, presenting hazards to [facility] 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 ([facility]) 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 edema, with long-term current use of insulin ([facility]) [facility]* Diagnosis 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, without long-term current use of insulin ([facility]) [facility]* Diagnosis 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, without long-term current use of insulin ([facility]) documented in this encounter [facility] note* Diagnosis 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, without long-term current use of insulin ([facility])- Primary ESRD (end stage renal disease) on dialysis ([facility]) End stage renal disease Chronic diastolic heart failure (HCC) Chronic diastolic heart failure documented in this encounter [facility] note* Diagnosis 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 edema, without long-term current use of insulin ([facility]) documented in this encounter [facility] note* Diagnosis 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, without long-term current use of insulin ([facility]) documented in this encounter [facility] note* Diagnosis 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, without long-term current use of insulin ([facility])- Primary Lower extremity edema Edema 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) End stage renal disease Chronic diastolic heart failure (HCC) Chronic diastolic heart failure Essential hypertension Unspecified essential hypertension 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 At high risk for falls Personal history of fall [facility] Diagnosis 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, without long-term current use of insulin ([facility] Diagnosis 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 edema, without long-term current use of insulin ([facility])- Primary Onychomycosis Dermatophytosis of nail Left foot pain Pain in limb Right foot pain Pain in limb [facility] Diagnosis 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, without long-term current use of insulin ([facility] Diagnosis 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, without long-term current use of insulin ([facility]) [facility] Diagnosis 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 edema, with long-term current use of insulin ([facility] Diagnosis 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, without long-term current use of insulin ([facility] Diagnosis 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 edema, with long-term current use of insulin ([facility])- Primary 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) End stage renal disease Chronic diastolic heart failure (HCC) Chronic diastolic heart failure 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 Lower extremity edema Edema Essential hypertension Unspecified essential hypertension Mixed hyperlipidemia [facility] Diagnosis 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, without long-term current use of insulin ([facility] Diagnosis 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, acquired [facility] Diagnosis 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, without long-term current use of insulin ([facility])- Primary 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) End stage renal disease [facility]* Diagnosis Right foot infection- Primary Unspecified local infection of skin and subcutaneous tissue [facility] Diagnosis 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, without long-term current use of insulin ([facility] Instructions CT scan of the brain showed no broken bones or internal bleeding. Give Tylenol as needed. Keep the small nasal wound clean. If symptoms worsen such as a severe headache, vomiting, confusion please return to the ER.[facility] Work Phone: Progress note Author Hakan Gunter [facility] Note Date/Time February 15, 2025 10:55am [facility] [address] [place] [address] OFFICE VISIT Date of Service: 02/15/25 MR#: [id number] Acct: [id number] Name: PERLA THOMPSON Rep #: [id number] : 1935 Provider: Dr. 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 Wound, open, foot End stage renal disease MRSA (methicillin resistant staph aureus) culture positive Cutaneous abscess of right foot Diabetic infection of right foot Acute hyperkalemia Open wound Lives in senior care Dietary restriction History of stress test History of echocardiogram Cardiology follow-up encounter History of atrial fibrillation Insulin dependent diabetes mellitus Other specified peripheral vascular diseases 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 [email or web address] assisted living.here in stretcher. Supplemental Info xr [...] Cosign Signature: Date (if applicable) CC: ~ [facility] [employer] Work Phone: Reason for referral (narrative)* Diagnostic Procedure Only (Routine) - Closed Specialty Diagnoses / Procedures Referred By Tay aguilar Referred To Contact XR IMAGING Diagnoses Deformity of both feet Procedures XR FOOT GENERAL 3V AP/LAT/OBL BILAT X-RAY FOOT MINIMUM 3 VIEWS Husam Yan MD [address] [place] [address] [place] [address] Referral ID Status Reason Start Date Expiration Date V isits Requested Visits Authorized [id number] Closed Auto-Generate d Referral 03/04/2021 04/03/2022 1 1 [facility] for referral (narrative)No reason for referral [facility] Work Phone: Reason for visit Narrative* Diagnostic Procedure Only (Routine) - Closed Specialty Diagnoses / Procedures Referred By Contjorge aguilar Referred To Contact XR IMAGING Diagnoses Deformity of both feet Procedures XR FOOT GENERAL 3V AP/LAT/OBL BILAT X-RAY FOOT MINIMUM 3 VIEWS Husam Yan MD [address] [place] [address] [place] [address] Referral ID Status Reason Start Date Expiration Date V isits Requested Visits Authorized [id number] Closed Auto-Generate d Referral 03/04/2021 04/03/2022 1 1 [facility] Chief Complaint and Reason for Visit Chief Complaint L ARM DIALYSIS CATH LOW ADEQUECY LOW ACCESS FLOW DIALYSIS ACCESS COMPLICATION DIALYSIS ACCESS COMPLICATION Reason for Visit Problem with dialysi s access Problem with dialysis access Chief Complaint Admit Date [facility] LAB WORK June 06, 2024 5:00am 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 June 06, 2024 5:57am POST-OP EXAM June 06, 2024 2 :32pm LABWORK June 08, 2024 5 :00am GROUP [facility] LAB WORK June 11, 2024 5:00am LAB [...] 30am WOUND August 20, 2024 1:5 9pm GROUP HOME LAB WORK August 27, 2024 4: 00am [...] chronic disease August 29 1:06pm Atherosclerosis of [place]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 August 29, 2024 1:06pm Wound, open, foot August 29, 2024 1:06 pm 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 September 24, 2024 9:58am Chief Complaint Admit Date GROUP HOME LAB WORK June 06, 2024 5:00am 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 June 06, 2024 5:57am POST-OP EXAM June 06, 2024 2 :32pm LABWORK June 08, 2024 5 :00am GROUP HOME LAB WORK June 11, 2024 5:00am LAB [...] 30am WOUND August 20, 2024 1:5 9pm GROUP HOME LAB WORK August 27, 2024 4: 00am [...] chronic disease August 29 1:06pm Atherosclerosis of [place] ar carrol of right leg [...] 30am WOUND August 20, 2024 1:5 9pm GROUP HOME LAB WORK August 27, 2024 4: 00am [...] chronic disease August 29 1:06pm Atherosclerosis of [place] ar carrol of right leg [...] 30am WOUND August 20, 2024 1:5 9pm GROUP HOME LAB WORK August 27, 2024 4: 00am [...] Admit Date End stage renal disease July 02, 12:56pm Acute hyperkalemia July 02, 2024 12:56pm [...] chronic disease August 29 1:06pm Atherosclerosis of [place] ar carrol of right leg [...] 30am WOUND August 20, 2024 1:5 9pm GROUP HOME LAB WORK August 27, 2024 4: 00am WOUND August 27, 2024 8:23 am WOUND August 27, 2024 9:27 am RE-ADMISSION EXAM September 05, 2024 5:4 0pm LABWORK September 10, 2024 5:0 0am LABWORK September 12, 2024 5:0 0am GROUP HOME LAB WORK September 17, 2024 4 :00am LABWORK September 24, 2024 5:00am WOUND September 24, 2024 9:58am WOUND September 24, 2024 11:01a m LABWORK October 02, 2024 5:00a m Remove hola/Amp 08/29/2024 October 03, 2 025 8:55am GROUP HOME LAB WORK October 08, 2024 4:0 0am GROUP HOME LAB WORK October 16, 2024 5:0 0am 2 WK FU October 17, 2024 10:05 am GROUP HOME LAB WORK October 29, 2024 4:0 0am [...] chronic disease August 29 1:06pm Atherosclerosis of [place] ar carrol of right leg [...] 30am WOUND August 20, 2024 1:5 9pm GROUP HOME LAB WORK August 27, 2024 4: 00am WOUND August 27, 2024 8:23 am WOUND August 27, 2024 9:27 am RE-ADMISSION EXAM September 05, 2024 5:4 0pm LABWORK September 10, 2024 5:0 0am LABWORK September 12, 2024 5:0 0am GROUP HOME LAB WORK September 17, 2024 4 :00am LABWORK September 24, 2024 5:00am WOUND September 24, 2024 9:58am WOUND September 24, 2024 11:01a m LABWORK October 02, 2024 5:00a m Remove hola/Amp 08/29/2024 October 03, 2 025 8:55am GROUP HOME LAB WORK October 08, 2024 4:0 0am GROUP HOME LAB WORK October 16, 2024 5:0 0am 2 WK FU October 17, 2024 10:05 am GROUP HOME LAB WORK October 22, 2024 5:0 0am GROUP HOME LAB WORK October 29, 2024 4:0 0am [...] chronic disease August 29 1:06pm Atherosclerosis of [place] artery of righ t leg [...] 30am WOUND August 20, 2024 1:5 9pm GROUP HOME LAB WORK August 27, 2024 4: 00am WOUND August 27, 2024 8:23 am WOUND August 27, 2024 9:27 am RE-ADMISSION EXAM September 05, 2024 5:4 0pm LABWORK September 10, 2024 5:0 0am LABWORK September 12, 2024 5:0 0am GROUP HOME LAB WORK September 17, 2024 4 :00am LABWORK September 24, 2024 5:00am WOUND September 24, 2024 9:58am WOUND September 24, 2024 11:01a m LABWORK October 02, 2024 5:00a m Remove hola/Amp 08/29/2024 October 03, 2 025 8:55am GROUP HOME LAB WORK October 08, 2024 4:0 0am GROUP HOME LAB WORK October 16, 2024 5:0 0am MONTHLY EXAM October 16, 2024 5:30p m 2 WK FU October 17, 2024 10:05 am GROUP HOME LAB WORK October 22, 2024 5:0 0am GROUP HOME LAB WORK October 29, 2024 4:0 0am [...] 30am WOUND August 20, 2024 1:5 9pm GROUP HOME LAB WORK August 27, 2024 4: 00am WOUND August 27, 2024 8:23 am WOUND August 27, 2024 9:27 am RE-ADMISSION EXAM September 05, 2024 5:4 0pm LABWORK September 10, 2024 5:0 0am LABWORK September 12, 2024 5:0 0am GROUP HOME LAB WORK September 17, 2024 4 :00am LABWORK September 24, 2024 5:00am WOUND September 24, 2024 9:58am WOUND September 24, 2024 11:01a m LABWORK October 02, 2024 5:00a m Remove hola/Amp 08/29/2024 October 03, 2 025 8:55am GROUP HOME LAB WORK October 08, 2024 4:0 0am GROUP HOME LAB WORK October 16, 2024 5:0 0am MONTHLY EXAM October 16, 2024 5:30p m 2 WK FU October 17, 2024 10:05 am GROUP HOME LAB WORK October 22, 2024 5:0 0am GROUP HOME LAB WORK October 29, 2024 4:0 0am 1 Y FU October 29, 2024 9:45a m MONTHLY EXAM November 02, 2024 5:00 pm LABWORK November 05, 2024 5:00 am fall November 08, 2024 7:35 pm GROUP HOME LAB WORK November 12, 2024 5: 00am bradycardia November 22, 2024 8:44a m Chief Complaint Admit Date RE-ADMISSION EXAM September 05, 2024 5:4 0pm LABWORK September 10, 2024 5:0 0am LABWORK September 12, 2024 5:0 0am GROUP HOME LAB WORK September 17, 2024 4 :00am LABWORK September 24, 2024 5:00am WOUND September 24, 2024 9:58am WOUND September 24, 2024 11:01a m LABWORK October 02, 2024 5:00a m Remove hola/Amp 08/29/2024 October 03, 2 025 8:55am GROUP HOME LAB WORK October 08, 2024 4:0 0am GROUP HOME LAB WORK October 16, 2024 5:0 0am MONTHLY EXAM October 16, 2024 5:30p m 2 WK FU October 17, 2024 10:05 am GROUP HOME LAB WORK October 22, 2024 5:0 0am GROUP HOME LAB WORK October 29, 2024 4:0 0am 1 Y FU October 29, 2024 9:45a m MONTHLY EXAM November 02, 2024 5:00 pm LABWORK November 05, 2024 5:00 am fall November 08, 2024 7:35 pm GROUP HOME LAB WORK November 12, 2024 5: 00am bradycardia November 22, 2024 8:44a m NEW ENROLEE December 26, 2024 9:3 4am Reason for Visit Admit Date 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 August 29, 2024 1:06pm End stage renal disease August 29, 2024 1:06pm Anemia of chronic disease August 29 1:06pm Atherosclerosis of [place] artery of righ t leg [...] 0am LABWORK September 12, 2024 5:0 0am GROUP HOME LAB WORK September 17, 2024 4 :00am LABWORK September 24, 2024 5:00am WOUND September 24, 2024 9:58am WOUND September 24, 2024 11:01a m LABWORK October 02, 2024 5:00a m Remove hola/Amp 08/29/2024 October 03, 2 025 8:55am GROUP HOME LAB WORK October 08, 2024 4:0 0am GROUP HOME LAB WORK October 16, 2024 5:0 0am MONTHLY EXAM October 16, 2024 5:30p m 2 WK FU October 17, 2024 10:05 am GROUP HOME LAB WORK October 22, 2024 5:0 0am GROUP HOME LAB WORK October 29, 2024 4:0 0am 1 Y FU October 29, 2024 9:45a m MONTHLY EXAM November 02, 2024 5:00 pm LABWORK November 05, 2024 5:00 am fall November 08, 2024 7:35 pm GROUP HOME LAB WORK November 12, 2024 5: 00am bradycardia November 22, 2024 8:44a m Re-admission exam November 30, 2024 5:02 pm GROUP HOME LAB WORK December 12, 2024 5: 00am GROUP HOME LAB WORK December 19, 2024 5: 00am Pacer Check Remote December 26, 2024 9:0 0am NEW ENROL December 26, 2024 9:3 4am Chief Complaint Admit Date RE-ADMISSION EXAM September 05, 2024 5:4 0pm LABWORK September 10, 2024 5:0 0am LABWORK September 12, 2024 5:0 0am GROUP HOME LAB WORK September 17, 2024 4 :00am LABWORK September 24, 2024 5:00am WOUND September 24, 2024 9:58am WOUND September 24, 2024 11:01a m LABWORK October 02, 2024 5:00a m Remove hola/Amp 08/29/2024 October 03, 2 025 8:55am GROUP HOME LAB WORK October 08, 2024 4:0 0am GROUP HOME LAB WORK October 16, 2024 5:0 0am MONTHLY EXAM October 16, 2024 5:30p m 2 WK FU October 17, 2024 10:05 am GROUP HOME LAB WORK October 22, 2024 5:0 0am GROUP HOME LAB WORK October 29, 2024 4:0 0am 1 Y FU October 29, 2024 9:45a m MONTHLY EXAM November 02, 2024 5:00 pm LABWORK November 05, 2024 5:00 am fall November 08, 2024 7:35 pm GROUP HOME LAB WORK November 12, 2024 5: 00am bradycardia November 22, 2024 8:44a m Re-admission exam November 30, 2024 5:02 pm GROUP HOME LAB WORK December 12, 2024 5: 00am GROUP HOME LAB WORK December 19, 2024 5: 00am [...] hola/Amp 08/29/2024 October 03, 2 025 8:55am GROUP HOME LAB WORK October 08, 2024 4:0 0am GROUP HOME LAB WORK October 16, 2024 5:0 0am MONTHLY EXAM October 16, 2024 5:30p m 2 WK FU October 17, 2024 10:05 am GROUP HOME LAB WORK October 22, 2024 5:0 0am GROUP HOME LAB WORK October 29, 2024 4:0 0am 1 Y FU October 29, 2024 9:45a m MONTHLY EXAM November 02, 2024 5:00 pm LABWORK November 05, 2024 5:00 am fall November 08, 2024 7:35 pm GROUP HOME LAB WORK November 12, 2024 5: 00am bradycardia November 22, 2024 8:44a m Re-admission exam November 30, 2024 5:02 pm GROUP HOME LAB WORK December 12, 2024 5: 00am GROUP HOME LAB WORK December 19, 2024 5: 00am New Concern December 20, 2024 3:01 pm FOLLOW UP December 21, 2024 5:5 2pm GROUP HOME LAB WORK December 24, 2024 5 :00am Pacer Check Remote December 26, 2024 9:0 0am NEW ENROLEE December 26, 2024 9:3 4am Chief Complaint Admit Date LABWORK October 02, 2024 5:00a m Remove hola/Amp 08/29/2024 October 03, 2 025 8:55am GROUP HOME LAB WORK October 08, 2024 4:0 0am GROUP HOME LAB WORK October 16, 2024 5:0 0am MONTHLY EXAM October 16, 2024 5:30p m 2 WK FU October 17, 2024 10:05 am GROUP HOME LAB WORK October 22, 2024 5:0 0am GROUP HOME LAB WORK October 29, 2024 4:0 0am 1 Y FU October 29, 2024 9:45a m MONTHLY EXAM November 02, 2024 5:00 pm LABWORK November 05, 2024 5:00 am fall November 08, 2024 7:35 pm GROUP HOME LAB WORK November 12, 2024 5: 00am bradycardia November 22, 2024 8:44a m Re-admission exam November 30, 2024 5:02 pm GROUP HOME LAB WORK December 12, 2024 5: 00am GROUP HOME LAB WORK December 19, 2024 5: 00am New Concern December 20, 2024 3:01 pm FOLLOW UP December 21, 2024 5:5 2pm GROUP HOME LAB WORK December 24, 2024 5 :00am [...] January 25, 2025 5:56pm Current use of extermination supervisor anticoagulation January 25, 2025 5:56pm End stage renal disease January 25, 2 025 5:56pm Fall January 25, 2025 5:56pm Chief Complaint Admit Date LABWORK October 02, 2024 5:00a m Remove hola/Amp 08/29/2024 October 03, 2 025 8:55am GROUP HOME LAB WORK October 08, 2024 4:0 0am GROUP HOME LAB WORK October 16, 2024 5:0 0am MONTHLY EXAM October 16, 2024 5:30p m 2 WK FU October 17, 2024 10:05 am GROUP HOME LAB WORK October 22, 2024 5:0 0am GROUP HOME LAB WORK October 29, 2024 4:0 0am 1 Y FU October 29, 2024 9:45a m MONTHLY EXAM November 02, 2024 5:00 pm LABWORK November 05, 2024 5:00 am fall November 08, 2024 7:35 pm GROUP HOME LAB WORK November 12, 2024 5: 00am bradycardia November 22, 2024 8:44a m Re-admission exam November 30, 2024 5:02 pm GROUP HOME LAB WORK December 12, 2024 5: 00am GROUP HOME LAB WORK December 19, 2024 5: 00am New Concern December 20, 2024 3:01 pm FOLLOW UP December 21, 2024 5:5 2pm GROUP HOME LAB WORK December 24, 2024 5 :00am [...] January 25, 2025 5:56pm Current use of half-way anticoagulation January 25, 2025 5:56pm End stage renal disease January 25, 2 025 5:56pm Fall January 25, 2025 5:56pm Anemia of chronic disease January 25, 2025 5:56pm Chief Complaint Admit Date GROUP HOME LAB WORK October 29, 2024 4:0 0am 1 Y FU October 29, 2024 9:45a m MONTHLY EXAM November 02, 2024 5:00 pm LABWORK November 05, 2024 5:00 am fall November 08, 2024 7:35 pm GROUP HOME LAB WORK November 12, 2024 5: 00am bradycardia November 22, 2024 8:44a m Re-admission exam November 30, 2024 5:02 pm GROUP HOME LAB WORK December 12, 2024 5: 00am GROUP HOME LAB WORK December 19, 2024 5: 00am New Concern December 20, 2024 3:01 pm FOLLOW UP December 21, 2024 5:5 2pm GROUP HOME LAB WORK December 24, 2024 5 :00am Pacer Check Remote December 26, 2024 9:0 0am NEW ENROLEE December 26, 2024 9:3 4am GROUP HOME LAB WORK January 23 5:00am fell and [...] 2024 9:51am LABOWRK February 01, 2025 5:00am GROUP HOME LAB WORK February 07 4:00am GROUP HOME LAB WORK February 12 4:30am RIGHT HIP February 15, 2025 9:54am [...] January 25, 2025 5:56pm Current use of extermination supervisor anticoagulation January 25, 2025 5:56pm End stage renal disease January 25, 025 5:56pm Fall January 25, 2025 5:56pm Anemia of chronic disease January 25, 2025 5:56pm Closed hip fracture February 15, 2025 9:54am Chief Complaint Admit Date bradycardia November 22, 2024 8:44a m Re-admission exam November 30, 2024 5:02 pm GROUP HOME LAB WORK December 12, 2024 5: 00am GROUP HOME LAB WORK December 19, 2024 5: 00am New Concern December 20, 2024 3:01 pm FOLLOW UP December 21, 2024 5:5 2pm GROUP HOME LAB WORK December 24, 2024 5 :00am Pacer Check Remote December 26, 2024 9:0 0am NEW ENROLEE December 26, 2024 9:3 4am GROUP HOME LAB WORK January 23 5:00am fell and [...] 2024 10:45am RIGHT INTRATROCHANTERIC FRACTURE Septemb er 9th, 2025 9:51am HOSP RE-ADMISSION EXAM-CHANNEL LIP WETTER January 2:45pm LABOWRK February 01, 2025 5:00am GROUP HOME LAB WORK February 07 4:00am GROUP HOME LAB WORK February 12 4:30am GROUP HOME LAB WORK February 14 5:00am RIGHT HIP February 15, 2025 9:54am Room 1 February 15, 2025 10:12am Pacer Check Remote February 25, 2025 5: 42pm Reason for Visit Admit Date 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 December 26, 2024 9:34am Paroxysmal atrial fibrillation December 9:34am Presence of leadless cardiac pacemaker A [id number] 9:34am Sinus bradycardia December 26, 2024 9:3 4am Closed hip fracture January 25, 2025 5:56pm Closed right hip fracture January 25, 2025 5:56pm Current use of extermination supervisor anticoagulation January 25, 2025 5:56pm End stage [...] Documents on File Type Date Recorded Patient Family Protection Specialist Expl anation Advance Directive(s) 07/03/2024 11:50 AM Date Activated Date Inactivated Comments 11/23/2024 5:43 AM 11/28/2024 2:55 PM Question Answer Comments Full Code Order Discussed With: Patient Advance Directive Response Recorded Date/ Time Advance Directives on File No November 06, 2021 9:22am Name of Medical Power of Ampoule Examiner Arian Thompson November 06, 2021 9:22am Advance Directives Yes November 06 9:22am Living Will Yes November 06, 2021 9:22am Power of Ampoule Examiner Yes November 06 9:22am Advance Directive Response Recorded Date/ Time Living Will Yes July 02 025 2:52pm Do you have a Healthcare Pow er of Ampoule Examiner? Yes July 02, 2024 2:52pm Name of Medical Power of Ampoule Examiner RADHA GATES July 02, 2024 2:52pm Living Will Yes July 03 025 3:50pm Do you have a Healthcare Pow er of Ampoule Examiner? Yes July 03, 2024 3:50pm Name of Medical Power of Ampoule Examiner jacinda gates July 03, 2024 3:50pm Living Will Yes July 07 025 7:28pm Do you have a Healthcare Pow er of Ampoule Examiner? Yes July 07, 2024 7:28pm Name of Medical Power of Ampoule Examiner maurice gates- daughter July 07, 2024 7:28pm Living Will Yes July 13 7:33pm Do you have a Healthcare Pow er of Ampoule Examiner? Yes July 13, 2024 7:33pm Name of Medical Power of Ampoule Examiner Jacinda avila July 13, 2024 7:33pm Living Will Yes August 28, 2024 8:57am Do you have a Healthcare Pow er of Ampoule Examiner? Yes August 28, 2024 8:57am Name of Medical Power of Ampoule Examiner RADHA GATES August 28, 2024 8:57am Living Will No June 04 2:32pm Do you have a Healthcare Pow er of Ampoule Examiner? No June 04, 2024 2:32pm Living Will Yes August 01, 2024 1:12pm Do you have a Healthcare Pow er of Ampoule Examiner? Yes August 01, 2024 1:12pm Name of Medical Power of Ampoule Examiner Jacinda Gates - dght August 01, 2024 1:12pm Advance Directives Yes April 11:29am Advance Directive Response Recorded Date/ Time Living Will Yes July 02 2:52pm Do you have a Healthcare Pow er of Ampoule Examiner? Yes July 02, 2024 2:52pm Name of Medical Power of Ampoule Examiner RADHA GATES July 02, 2024 2:52pm Living Will Yes July 03 025 3:50pm Do you have a Healthcare Pow er of Ampoule Examiner? Yes July 03, 2024 3:50pm Name of Medical Power of Ampoule Examiner jacinda gates July 03, 2024 3:50pm Living Will Yes July 07 025 7:28pm Do you have a Healthcare Pow er of Ampoule Examiner? Yes July 07, 2024 7:28pm Name of Medical Power of Ampoule Examiner maurice gates- faby July 07, 2024 7:28pm Living Will Yes July 13 025 7:33pm Do you have a Healthcare Pow er of Ampoule Examiner? Yes July 13, 2024 7:33pm Name of Medical Power of Ampoule Examiner Jacinda avila July 13, 2024 7:33pm Living Will Yes August 28, 2024 8:57am Do you have a Healthcare Pow er of Ampoule Examiner? Yes August 28, 2024 8:57am Name of Medical Power of Ampoule Examiner RADHA GATES August 28, 2024 8:57am Living Will Yes August 01, 2024 1:12pm Do you have a Healthcare Pow er of Ampoule Examiner? Yes August 01, 2024 1:12pm Name of Medical Power of Ampoule Examiner Jacinda Gates - seble August 01, 2024 1:12pm Advance Directives Yes April 11:29am Advance Directive Response Recorded Date/ Time Living Will Yes November 06, 2021 9:22am Do you have a Healthcare Pow er of Ampoule Examiner? Yes November 06, 2021 9:22am Living Will Yes July 13 7:33pm Do you have a Healthcare Pow er of Ampoule Examiner? Yes July 13, 2024 7:33pm Name of Medical Power of Ampoule Examiner Jacinda avila July 13, 2024 7:33pm Living Will Yes August 28, 2024 8:57am Do you have a Healthcare Pow er of Ampoule Examiner? Yes August 28, 2024 8:57am Name of Medical Power of Ampoule Examiner RADHA GATES August 28, 2024 8:57am Do you have a Healthcare Pow er of Ampoule Examiner? No November 08, 2024 7:39pm Living Will Yes August 01, 2024 1:12pm Do you have a Healthcare Pow er of Ampoule Examiner? Yes August 01, 2024 1:12pm Name of Medical Power of Ampoule Examiner Jacinda pruett August 01, 2024 1:12pm Advance Directives Yes April 11:29am Advance Directive Response Recorded Date/ Time Living Will Yes November 06, 2021 9:22am Do you have a Healthcare Pow er of Ampoule Examiner? Yes November 06, 2021 9:22am Living Will Yes August 28, 2024 8:57am Do you have a Healthcare Pow er of Ampoule Examiner? Yes August 28, 2024 8:57am Name of Medical Power of Ampoule Examiner RADHA GATES August 28, 2024 8:57am Do you have a Healthcare Pow er of Ampoule Examiner? No November 08, 2024 7:39pm Do you have a Healthcare Pow er of Ampoule Examiner? Yes November 22, 2024 12:42pm Living Will Yes August 01, 2024 1:12pm Do you have a Healthcare Pow er of Ampoule Examiner? Yes August 01, 2024 1:12pm Name of Medical Power of Ampoule Examiner Jacinda Gtaes - dght August 01, 2024 1:12pm Advance Directives Yes April 11:29am Advance Directive Response Recorded Date/ Time Living Will Yes November 06, 2021 9:22am Do you have a Healthcare Power of Ampoule Examiner? Yes November 06, 2021 9:22am Living Will Yes August 28, 2024 8:57am Do you have a Healthcare Power of Ampoule Examiner? Yes August 28, 2024 8:57am Name of Medical Power of Ampoule Examiner RADHA GATES August 28, 2024 8:57am Do you have a Healthcare Power of Ampoule Examiner? No November 08, 2024 7:39pm Do you have a Healthcare Power of Ampoule Examiner? Yes November 22, 2024 12:42pm Advance Directives Yes April 11:29am Advance Directive Response Recorded Date/ Time Living Will Yes November 06, 2021 9:22am Do you have a Healthcare Power of Ampoule Examiner? Yes November 06, 2021 9:22am Do you have a Healthcare Power of Ampoule Examiner? No November 08, 2024 7:39pm Do you have a Healthcare Power of Ampoule Examiner? Yes November 22, 2024 12:42pm Advance Directives Yes April 11:29am Advance Directive Response Recorded Date/ Time Living Will Yes November 06, 2021 9:22am Do you have a Healthcare Power of Ampoule Examiner? Yes November 06, 2021 9:22am Do you have a Healthcare Power of Ampoule Examiner? No November 08, 2024 7:39pm Do you have a Healthcare Power of Ampoule Examiner? Yes November 22, 2024 12:42pm Do you have a Healthcare Power of Ampoule Examiner? Yes January 25, 2025 4:27pm Advance Directives Yes April 11:29am Advance Directive Response Recorded Date/ Time Living Will Yes November 06, 2021 9:22am Do you have a Healthcare Power of Ampoule Examiner? Yes November 06, 2021 9:22am Do you have a Healthcare Power of Ampoule Examiner? No November 08, 2024 7:39pm Do you have a Healthcare Power of Ampoule Examiner? Yes November 22, 2024 12:42pm Do you have a Healthcare Power of Ampoule Examiner? Yes January 25, 2025 6:43pm Advance Directives Yes April 11:29am Advance Directive Response Recorded Date/ Time Advance Directives Yes March 08, 2025 10:50am Do you have a Healthcare Power of Ampoule Examiner? Yes November 22, 2024 12:42pm Do you have a Healthcare Power of Ampoule Examiner? Yes January 25, 2025 6:43pm Reason for Referral Specialty Diagnoses / Procedures Referred By Tay t Referred To Contact Diagnoses 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 edema, without long-term current use of insulin ([facility]) Lauren Arzola APRN.INFORMATICS PHYSICIAN LIAISON [address] [place] [address] Referral ID Status Reason Start Date Expiration Date V isits Requested Visits Authorized [id number] Pending Review 1 1 Referral ID Status Reason Start Date Expiration Date Visits Re quested Visits Authorized [id number] Closed 1 1 Specialty Diagnoses / Procedures Referred By Tay t Referred To Contact Diagnoses 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, without long-term current use of insulin ([facility]) Lauren Arzola APRN.INFORMATICS PHYSICIAN LIAISON [address] [place] [address] Referral ID Status Reason Start Date Expiration Date V isits Requested Visits Authorized [id number] Authorized 1 1 Summary Purpose Additional Source Comments Source Comments (unrecognize d section and content) In the event this informatio n is protected by the Federal Confidentiality of Alcohol and Drug Abuse Patient Records regulations: The Federal rules restrict any use of the information to criminally investigate or prosecute any alcohol or drug abuse patient.[facility] the event this information is protected by the Federal Confidentiality of Alcohol and Drug Abuse Patient Records regulations: The Federal rules restrict any use of the information to criminally investigate or prosecute any alcohol or drug abuse patient.[facility]In the event this information is protected by the Federal Confidentiality of Alcohol and Drug Abuse Patient Records regulations: The Federal rules restrict any use of the information to criminally investigate or prosecute any alcohol or drug abuse patient.[facility] the event this information is protected by the Federal Confidentiality of Alcohol and Drug Abuse Patient Records regulations: The Federal rules restrict any use of the information to criminally investigate or prosecute any alcohol or drug abuse patient.[facility]In the event this information is protected by the Federal Confidentiality of Alcohol and Drug Abuse Patient Records regulations: The Federal rules restrict any use of the information to criminally investigate or prosecute any alcohol or drug abuse patient.[facility]In the event this information is protected by the Federal Confidentiality of Alcohol and Drug Abuse Patient Records regulations: The Federal rules restrict any use of the information to criminally investigate or prosecute any alcohol or drug abuse patient.[facility]In the event this information is protected by the Federal Confidentiality of Alcohol and Drug Abuse Patient Records regulations: The Federal rules restrict any use of the information to criminally investigate or prosecute any alcohol or drug abuse patient.[facility]In the event this information is protected by the Federal Confidentiality of Alcohol and Drug Abuse Patient Records regulations: The Federal rules restrict any use of the information to criminally investigate or prosecute any alcohol or drug abuse patient.[facility]In the event this information is protected by the Federal Confidentiality of Alcohol and Drug Abuse Patient Records regulations: The Federal rules restrict any use of the information to criminally investigate or prosecute any alcohol or drug abuse patient.[facility]In the event this information is protected by the Federal Confidentiality of Alcohol and Drug Abuse Patient Records regulations: The Federal rules restrict any use of the information to criminally investigate or prosecute any alcohol or drug abuse patient.[facility] HospitalIn the event this information is protected by the Federal Confidentiality of Alcohol and Drug Abuse Patient Records regulations: The Federal rules restrict any use of the information to criminally investigate or prosecute any alcohol or drug abuse patient.[facility]In the event this information is protected by the Federal Confidentiality of Alcohol and Drug Abuse Patient Records regulations: The Federal rules restrict any use of the information to criminally investigate or prosecute any alcohol or drug abuse patient.[facility] HospitalIn the event this information is protected by the Federal Confidentiality of Alcohol and Drug Abuse Patient Records regulations: The Federal rules restrict any use of the information to criminally investigate or prosecute any alcohol or drug abuse patient.[facility] HospitalIn the event this information is protected by the Federal Confidentiality of Alcohol and Drug Abuse Patient Records regulations: The Federal rules restrict any use of the information to criminally investigate or prosecute any alcohol or drug abuse patient.[facility]In the event this information is protected by the Federal Confidentiality of Alcohol and Drug Abuse Patient Records regulations: The Federal rules restrict any use of the information to criminally investigate or prosecute any alcohol or drug abuse patient.[facility] HospitalIn the event this information is protected by the Federal Confidentiality of Alcohol and Drug Abuse Patient Records regulations: The Federal rules restrict any use of the information to criminally investigate or prosecute any alcohol or drug abuse patient.[facility] HospitalIn the event this information is protected by the Federal Confidentiality of Alcohol and Drug Abuse Patient Records regulations: The Federal rules restrict any use of the information to criminally investigate or prosecute any alcohol or drug abuse patient.[facility] HospitalIn the event this information is protected by the Federal Confidentiality of Alcohol and Drug Abuse Patient Records regulations: The Federal rules restrict any use of the information to criminally investigate or prosecute any alcohol or drug abuse patient.[facility] HospitalIn the event this information is protected by the Federal Confidentiality of Alcohol and Drug Abuse Patient Records regulations: The Federal rules restrict any use of the information to criminally investigate or prosecute any alcohol or drug abuse patient.[facility] HospitalIn the event this information is protected by the Federal Confidentiality of Alcohol and Drug Abuse Patient Records regulations: The Federal rules restrict any use of the information to criminally investigate or prosecute any alcohol or drug abuse patient.[facility] HospitalIn the event this information is protected by the Federal Confidentiality of Alcohol and Drug Abuse Patient Records regulations: The Federal rules restrict any use of the information to criminally investigate or prosecute any alcohol or drug abuse patient.[facility] HospitalIn the event this information is protected by the Federal Confidentiality of Alcohol and Drug Abuse Patient Records regulations: The Federal rules restrict any use of the information to criminally investigate or prosecute any alcohol or drug abuse patient.[facility] HospitalIn the event this information is protected by the Federal Confidentiality of Alcohol and Drug Abuse Patient Records regulations: The Federal rules restrict any use of the information to criminally investigate or prosecute any alcohol or drug abuse patient.[facility] HospitalIn the event this information is protected by the Federal Confidentiality of Alcohol and Drug Abuse Patient Records regulations: The Federal rules restrict any use of the information to criminally investigate or prosecute any alcohol or drug abuse patient.[facility] the event this information is protected by the Federal Confidentiality of Alcohol and Drug Abuse Patient Records regulations: The Federal rules restrict any use of the information to criminally investigate or prosecute any alcohol or drug abuse patient.[facility] HospitalIn the event this information is protected by the Federal Confidentiality of Alcohol and Drug Abuse Patient Records regulations: The Federal rules restrict any use of the information to criminally investigate or prosecute any alcohol or drug abuse patient.[facility] HospitalIn the event this information is protected by the Federal Confidentiality of Alcohol and Drug Abuse Patient Records regulations: The Federal rules restrict any use of the information to criminally investigate or prosecute any alcohol or drug abuse patient.[facility] HospitalIn the event this information is protected by the Federal Confidentiality of Alcohol and Drug Abuse Patient Records regulations: The Federal rules restrict any use of the information to criminally investigate or prosecute any alcohol or drug abuse patient.[facility] HospitalIn the event this information is protected by the Federal Confidentiality of Alcohol and Drug Abuse Patient Records regulations: The Federal rules restrict any use of the information to criminally investigate or prosecute any alcohol or drug abuse patient.[facility] HospitalIn the event this information is protected by the Federal Confidentiality of Alcohol and Drug Abuse Patient Records regulations: The Federal rules restrict any use of the information to criminally investigate or prosecute any alcohol or drug abuse patient.[facility] HospitalIn the event this information is protected by the Federal Confidentiality of Alcohol and Drug Abuse Patient Records regulations: The Federal rules restrict any use of the information to criminally investigate or prosecute any alcohol or drug abuse patient.[facility] HospitalIn the event this information is protected by the Federal Confidentiality of Alcohol and Drug Abuse Patient Records regulations: The Federal rules restrict any use of the information to criminally investigate or prosecute any alcohol or drug abuse patient.[facility] HospitalIn the event this information is protected by the Federal Confidentiality of Alcohol and Drug Abuse Patient Records regulations: The Federal rules restrict any use of the information to criminally investigate or prosecute any alcohol or drug abuse patient.[facility] HospitalIn the event this information is protected by the Federal Confidentiality of Alcohol and Drug Abuse Patient Records regulations: The Federal rules restrict any use of the information to criminally investigate or prosecute any alcohol or drug abuse patient.[facility] HospitalIn the event this information is protected by the Federal Confidentiality of Alcohol and Drug Abuse Patient Records regulations: The Federal rules restrict any use of the information to criminally investigate or prosecute any alcohol or drug abuse patient.[facility] HospitalIn the event this information is protected by the Federal Confidentiality of Alcohol and Drug Abuse Patient Records regulations: The Federal rules restrict any use of the information to criminally investigate or prosecute any alcohol or drug abuse patient.[facility] HospitalIn the event this information is protected by the Federal Confidentiality of Alcohol and Drug Abuse Patient Records regulations: The Federal rules restrict any use of the information to criminally investigate or prosecute any alcohol or drug abuse patient.[facility] HospitalIn the event this information is protected by the Federal Confidentiality of Alcohol and Drug Abuse Patient Records regulations: The Federal rules restrict any use of the information to criminally investigate or prosecute any alcohol or drug abuse patient.[facility] Reason for Visit (unrecogniz ed section [...] Authorization Reason Comments Medication Problem Reason Comments [facility] Kidney bowdon requesting recor ds Reason Comments Established Patient [...] Date Comments Population Health Navigation Outreach 04/23/2024 [employer] Reason Comments Patient Update Fill out Surgical [...] End: July 13, 2024 Meredith Guevara NP, CHANNEL L[employer] W[employer]TER-C Attending Provider Active Start: July 13, 2024 [...] Active Star t: July 15, 2024 Dr. Josfe Garcia DPM Other Provider Active St art: [...] 2024 End: July 31, 2024 Meredith Guevara CHANNEL LIP WETTER, CH[employer] LIP WETTER-C Attending Provider Active Start: July 31, 2024 End: July 31, 2024 Team Status: Inactive Member Role Status Dates Dr. Nando Wiggins MD Primary Care Provider Active Start: August 01, 2024 End: August 01, 2024 Meredith Guevara CHANNEL LIP WETTER, CHANNEL LIP WETTER-C Attending Provider Active Start: August 01, 2024 [...] Active Member Role Status Dates Dr. Nanod Wgigins MD Primary Care Provider Active Start: [...] 2024 End: September 05, 2024 Meredith Guevara CHANNEL LIP WETTER, CHANNEL LIP WETTER-C Attending Provider Active Start: September 05, 2024 [...] 2024 End: October 29, 2024 Pooja Ruano CHANNEL LIP WETTER, CHANNEL LIP WETTER-C Attending Provider Active Start: October 29, 2024 [...] End: July 02, 2024 Meredith Guevara NP, CHANNEL LIP WETTER-C Attending Provider Active Start: July 02, 2024 [...] Provider Active Start: July 09, 2024 Nando HSERWOOD MD Attending Provider Active Start: July 09, 2024 Team Status: Inactive Member Role Status Dates Dr. Nando Wiggins MD Primary Care Provider Active Start: July 10, 2024 End: July 10, 2024 Meredith Guevara NP, CHANNEL LIP WETTER-C Attending Provider Active Start: July 10, 2024 [...] Attending Provider Active Start: October 08, 2024 Utilization Management Rn Relationship Specialty Start Date End Date Husam Yan MD [address] [place] [address] PCP - General Family Practice 10/14/16 Utilization Management Rn Relationship Specialty Start Date End Date Husam Yan MD [address] [place] [address] PCP - General Family Practice 10/14/16 Utilization Management Rn Relationship Specialty Start Date End Date Husam Yan MD [address] [place] [address] PCP - General Family Practice 10/14/16 Utilization Management Rn Relationship Specialty Start Date End Date Husam Yan MD [address] [facility] [place] [address] PCP - General Family Practice 10/14/16 Utilization Management Rn Relationship Specialty Start Date End Date Husam Yan MD [address] [place] [address] PCP - General Family Medicine 10/14/16 Utilization Management Rn Relationship Specialty Start Date End Date Husam Yan MD [address] [facility] [place] [address] PCP - General Family Medicine 10/14/16 Utilization Management Rn Relationship Specialty Start Date End Date Husam Yan MD [address] [facility] [place] [address] PCP - General Family Medicine 10/14/16 Utilization Management Rn Relationship Specialty Start Date End Date Husam Yan MD [address] [facility] [place] [address] PCP - General Family Medicine 10/14/16 Utilization Management Rn Relationship Specialty Start Date End Date Husam Yan MD [address] [facility] [place] [address] PCP - General Family Medicine 10/14/16 Utilization Management Rn Relationship Specialty Start Date End Date Husam Yan MD [address] [place] [address] PCP - General Family Medicine 10/14/16 Utilization Management Rn Relationship Specialty Start Date End Date Husam Yan MD [address] [facility] [place] [address] PCP - General Family Medicine 10/14/16 Utilization Management Rn Relationship Specialty Start Date End Date Husam Yan MD [address] [place] [address] PCP - General Family Medicine 10/14/16 Utilization Management Rn Relationship Specialty Start Date End Date Husam Yan MD [address] [facility] [place] [address] PCP - General Family Medicine 10/14/16 Utilization Management Rn Relationship Specialty Start Date End Date Husam Yan MD [address] [place] [address] PCP - General Family Medicine 10/14/16 Utilization Management Rn Relationship Specialty Start Date End Date Husam Yan MD [address] [facility] [place] [address] PCP - General Family Medicine 10/14/16 Utilization Management Rn Relationship Specialty Start Date End Date Husam Yan MD [address] [facility] [place] [address] PCP - General Family Medicine 10/14/16 Utilization Management Rn Relationship Specialty Start Date End Date Husam Yna MD [address] [facility] [place] [address] PCP - General Family Medicine 10/14/16 Utilization Management Rn Relationship Specialty Start Date End Date Husam Yan MD [address] [facility] [place] [address] PCP - General Family Medicine 10/14/16 Utilization Management Rn Relationship Specialty Start Date End Date Husam Yan MD [address] [facility] [place] [address] PCP - General Family Medicine 10/14/16 Utilization Management Rn Relationship Specialty Start Date End Date Husam Yan MD [address] [facility] [place] [address] PCP - General Family Medicine 10/14/16 Utilization Management Rn Relationship Specialty Start Date End Date Husam Yan MD [address] [facility] [place] [address] PCP - General Family Medicine 10/14/16 Utilization Management Rn Relationship Specialty Start Date End Date Husam Yan MD [address] [facility] [place] [address] PCP - General Family Medicine 10/14/16 Utilization Management Rn Relationship Specialty Start Date End Date Husam Yan MD [address] [facility] [place] [address] PCP - General Family Medicine 10/14/16 Utilization Management Rn Relationship Specialty Start Date End Date Husam Yan MD [address] [facility] [place] [address] PCP - General Family Medicine 10/14/16 Utilization Management Rn Relationship Specialty Start Date End Date Husam Yan MD [address] [facility] [place] [address] PCP - General Family Medicine 10/14/16 Podlogar, Lauren, [employer] DEVELOPER.INFORMATICS PHYSICIAN LIAISON [address] [facility] [place] [address] [employer] Trouble Shooter Family Medicine 04/28/24 Utilization Management Rn Relationship Specialty Start Date End Date Husam Yan MD [address] [facility] [place] [address] PCP - General Family Medicine 10/14/16 Podlogar, Lauren, [employer] DEVELOPER.INFORMATICS PHYSICIAN LIAISON [address] [facility] [place] [address] Exchange Trouble Shooter Family Medicine 04/28/24 Utilization Management Rn Relationship Specialty Start Date End Date Husam Yan MD [address] [facility] [place] [address] PCP - General Family Medicine 10/14/16 PodlogarLauren APRN.INFORMATICS PHYSICIAN LIAISON [address] [place] [address] [facility] 04/28/24 Team Status: Inactive Member [...] End: June 06, 2024 Meredith Guevara NP, [employer]-C Attending Provider Active Start: June 06, 2024 [...] 2024 End: July 31, 2024 Meredith Guevara [employer]TER, [employer]TER-C Attending Provider Active Start: July 31, 2024 End: July 31, 2024 Team Status: Inactive Member Role/Relationship Status Dates Dr. Nando Wiggins MD Primary Care Provider Active Start: August 01, 2024 End: August 01, 2024 Meredith Guevara CH[employer] W[employer]TER, [employer]TER-C Attending Provider Active Start: August 01, 2024 [...] Status: Active Member Role/Relationship Status Dates Dr. aNndo Wiggins MD Primary Care Provider Active Start: [...] iWggins MD Primary Care Provider Active Start: August [...] 2024 End: September 05, 2024 Meredith Guevara [employer]TER, [employer] W[employer]TER-C Attending Provider Active Start: September 05, 2024 [...] End: October 29, 2024 Pooja Ruano NP, [employer]-C Attending Provider Active Start: October 29, 2024 [...] August 13, 2024 End: August 13, 2024 Nadno SHERWOOD MD Attending Provider Active Start: August [...] Start : August 29, 2024 Dr. Randal Daimco MD Other Provider Active Star t: August [...] End: September 05, 2024 Meredith Guevara NP, [employer]-C Attending Provider Active Start: September 05, 2024 [...] 2024 End: October 29, 2024 Pooja Ruano CH[employer] W[employer]TER, CH[employer] W[employer]TER-C Attending Provider Active Start: October 29, 2024 [...] End: November 02, 2024 Meredith Guevara NP, [employer]-C Attending Provider Active Start: November 02, 2024 [...] November 22, 2024 End: November 23, 2024 Utilization Management Rn Relationship Specialty Start Date End Date Husam Yan MD [address] [place], [place] [id number] PCP - General Family Medicine 10/14/16 PodlogLauren suraez APRN.INFORMATICS PHYSICIAN LIAISON [address] [place], [place] [id number] [facility] Yesenia Yi APRN.INFORMATICS PHYSICIAN LIAISON [address] [place], [place] [id number] [facility] 11/01/24 Team Status: Active Member Role/Relationship [...] End: September 05, 2024 Meredith Guevara NP, [employer]-C Attending Provider Active Start: September 05, 2024 [...] Inactive Member Role/Relationship Status Dates Dr. Warren Mendoaz DPM Referring Provider Active Start: September 24, [...] 2024 End: October 29, 2024 Pooja Ruano CH[employer] W[employer]TER, CH[employer] W[employer]TER-C Attending Provider Active Start: October 29, 2024 End: October 29, 2024 Dr. Nando Wiggins MD Primary Care Provider Active Start: October 29, 2024 End: October 29, 2024 Team Status: Inactive Member Role/Relationship Status Dates Dr. Nando Wiggins MD Primary Care Provider Active Start: November 02, 2024 End: November 02, 2024 Meredith Guevara [employer] W[employer]TER, CH[employer] W[employer]TER-C Attending Provider Active Start: November 02, 2024 [...] 2024 End: September 05, 2024 Meredith Guevara CH[employer] LIP WETTER, CH[employer] WETTER-C Attending Provider Active Start: September 05, 2024 [...] End: October 29, 2024 Pooja Ruano NP, [employer]-C Attending Provider Active Start: October 29, 2024 End: October 29, 2024 Dr. Nando Wiggins MD Primary Care Provider Active Start: October 29, 2024 End: October 29, 2024 Team Status: Inactive Member Role/Relationship Status Dates Dr. Nando Wiggins MD Primary Care Provider Active Start: November 02, 2024 End: November 02, 2024 Meredith Guevara CH[employer] W[employer]TER, CH[employer] W[employer]TER-C Attending Provider Active Start: November 02, 2024 [...] 2024 End: November 30, 2024 Meredith Guevara CH[employer] L[employer] WETTER, CH[employer] L[employer] WETTER-C Attending Provider Active Start: November 30, 2024 [...] 2024 End: December 20, 2024 Meredith Guevara CH[employer] W[employer]TER, CH[employer] L[employer] WETTER-C Attending Provider Active Start: December 20, 2024 [...] 2024 End: September 05, 2024 Meredith Guevara CH[employer] LIP WETTER, CH[employer] LIP WETTER-C Attending Provider Active Start: September 05, 2024 [...] 2024 End: October 29, 2024 Pooja Ruano CH[employer] W[employer]TER, CH[employer] WETTER-C Attending Provider Active Start: October 29, 2024 End: October 29, 2024 Dr. Nando Wiggins MD Primary Care Provider Active Start: October 29, 2024 End: October 29, 2024 Team Status: Inactive Member Role/Relationship Status Dates Dr. Nando Wiggins MD Primary Care Provider Active Start: November 02, 2024 End: November 02, 2024 Meredith Guevara CH[employer] L[employer] WETTER, CH[employer] WETTER-C Attending Provider Active Start: November 02, 2024 [...] End: November 30, 2024 Meredith Guevara NP [employer]-C Attending Provider Active Start: November 30, 2024 [...] End: December 20, 2024 Meredith Guevara NP [employer]-C Attending Provider Active Start: December 20, 2024 [...] 2024 End: October 29, 2024 Pooja Ruano CH[employer] LIP WETTER, CH[employer] WETTER-C Attending Provider Active Start: October 29, 2024 End: October 29, 2024 Dr. Nando Wiggins MD Primary Care Provider Active Start: October 29, 2024 End: October 29, 2024 Team Status: Inactive Member Role/Relationship Status Dates Dr. Nando Wiggins MD Primary Care Provider Active Start: November 02, 2024 End: November 02, 2024 Meredith Guevara CH[employer] W[employer]TER, CH[employer] WETTER-C Attending Provider Active Start: November 02, 2024 [...] 2024 End: November 30, 2024 Meredith Guevara CH[employer] LIP WETTERTRE-C Attending Provider Active Start: November 30, 2024 [...] End: December 20, 2024 Meredith Guevara NP [employer]-C Attending Provider Active Start: December 20, 2024 End: December 20, 2024 Team Status: Inactive Member Role/Relationship Status Dates Dr. Nando Wiggins MD Primary Care Provider Active Start: December 21, 2024 End: December 21, 2024 Meredith Guevara NP [employer]-C Attending Provider Active Start: December 21, 2024 [...] 2024 End: October 29, 2024 Pooja Ruano CH[employer] LIP WETTER, CH[employer] WETTER-C Attending Provider Active Start: October 29, 2024 End: October 29, 2024 Dr. Nando Wiggins MD Primary Care Provider Active Start: October 29, 2024 End: October 29, 2024 Team Status: Inactive Member Role/Relationship Status Dates Dr. Nando Wiggins MD Primary Care Provider Active Start: November 02, 2024 End: November 02, 2024 Meredith Guevara CH[employer] L[employer] WETTER, CH[employer] WETTER-C Attending Provider Active Start: November 02, 2024 [...] 2024 End: November 30, 2024 Meredith Guevara CH[employer] LIP WETTER, CH[employer] WETTER-C Attending Provider Active Start: November 30, 2024 [...] 2024 End: December 20, 2024 Meredith Guevara CH[employer] LIP WETTER, CH[employer] WETTER-C Attending Provider Active Start: December 20, 2024 End: December 20, 2024 Team Status: Inactive Member Role/Relationship Status Dates Dr. Nando Wiggins MD Primary Care Provider Active Start: December 21, 2024 End: December 21, 2024 Meredith Guevara CH[employer]TER, CH[employer] WETTER-C Attending Provider Active Start: December 21, 2024 [...] Provider Active Start: January 27, 2025 Dr. Kmiberly Orozco MD Other Provider Active St art: [...] 2024 End: October 29, 2024 Pooja Ruano CH[employer] W[employer]TER, CH[employer] W[employer]TER-C Attending physician Active Start: October 29, 2024 End: October 29, 2024 Dr. Nando Wiggins MD Primary care physician Activ e Start: October 29, 2024 End: October 29, 2024 Team Status: Inactive Member Role/Relationship Status Dates Dr. Nando Wiggins MD Primary care physician Activ e Start: November 02, 2024 End: November 02, 2024 Meredith Guevara CH[employer] W[employer]TER, CH[employer] WETTER-C Attending physician Active Start: November 02, 2024 [...] 2024 End: November 30, 2024 Meredith Guevara CH[employer] L[employer] WETTER, CH[employer] WETTER-C Attending physician Active Start: November 30, 2024 [...] End: December 20, 2024 Meredith Guevara NP, [employer]-C Attending physician Active Start: December 20, 2024 End: December 20, 2024 Team Status: Inactive Member Role/Relationship Status Dates Dr. Nando Wiggins MD Primary care physician Activ e Start: December 21, 2024 End: December 21, 2024 Meredith Guevara NP, [employer]-C Attending physician Active Start: December 21, 2024 [...] 2024 End: November 30, 2024 Meredith Guevara CH[employer] L[employer] WETTER, CH[employer] WETTER-C Attending physician Active Start: November 30, 2024 End: November 30, 2024 Team Status: Active Member Role/Relationship Status Dates Dr. Nando Wiggins MD Primary care physician Activ e Start: December 12, 2024 Nando SHERWOOD MD Attending physician Active Start: December 12, 2024 Team Status: Active Member Role/Relationship Status Dates Dr. aNndo Wiggins MD Primary care physician Activ e Start: December 19, 2024 Nando SHERWOOD MD Attending physician Active Start: December 19, 2024 Team Status: Inactive Member Role/Relationship Status Dates Dr. Nando Wiggins MD Primary care physician Activ e Start: December 20, 2024 End: December 20, 2024 Meredith Guevara CH[employer] W[employer]TER, CH[employer] W[employer]TER-C Attending physician Active Start: December 20, 2024 End: December 20, 2024 Team Status: Inactive Member Role/Relationship Status Dates Dr. Nando Wiggins MD Primary care physician Activ e Start: December 21, 2024 End: December 21, 2024 Meredith Guevara CH[employer] W[employer]TER, CH[employer] WETTER-C Attending physician Active Start: December 21, 2024 [...] Active St art: January 28, 2025 Dr. aMnuel Alva MD Nurse Practitioner Active Start: January [...] 2025 End: January 30, 2025 Meredith Guevara CH[employer] W[employer]TER, CH[employer] W[employer]TER-C Attending physician Active Start: January 30, 2025 [...] section and content) DATE CREATED AUTHOR 09/16/2023 [facility] ([place] DATE CREATED AUTHOR AUTHOR'S ORGANIZ ATION 12/28/2024 [facility] DATE CREATED AUTHOR AUTHOR'S ORGANIZ ATION 04/03/2025 [facility] FOR RECORDS PERTAINING TO PATIENTS WHO [...] BE BASED ON THE PRIMARY CLINICAL RECORDS. [facility]. provides no warranty or guarantee of the accuracy or completeness of information in this document.
[2025-05-07 07:57] LABS: Hematocrit 35.0 % (40-54); Hemoglobin 11.0 g/dL (13.0-16.5); Immature Granulocytes Count 0.060 X10^3/uL (0.0-0.0); Mean Corp Hgb Conc 31.4 g/dL (32-36); Mean Corpuscular Volume 97.2 fL (80-94); Mean Platelet Vol. 12.8 fl (6.2-12.0); NRBC Flagged by Analyzer 0 % (0-5); Platelet Count 163 K/mm3 (150-450); RBC Distribution Width CV 14.0 % (11.6-14.6); RBC Distribution Width SD 50.1 fl (35.1-43.9); Red Blood Count 3.60 M/mm3 (4.6-6.2); White Blood Count 11.6 K/mm3 (4.4-11.0)
[2025-05-07 08:14] LABS: Anion Gap 12 (5-15); BUN 56 mg/dL (4-19); BUN/Creat Ratio 10.1 RATIO (10-20); Calcium,Total 9.6 mg/dL (7.6-11.0); Carbon Dioxide 29.1 mmol/L (21.0-32.0); Chloride 95 mmol/L (98-108); Cholesterol 138 mg/dL (<=200); Glucose 142 mg/dL (70-99); Low Density Lipoprotein Calc. 82 mg/dL; Potassium 4.7 mmol/L (3.3-5.1); Triglycerides 69 mg/dL; Very Low Density Lipoprotein 14 mg/dL (5-40); cholesterol:hdl ratio screen 3.29
== END ==
LOC: OLS.WHLEAS 05:00
PROVIDERS: PCP Internal Medicine; Visit Provider Internal Medicine
DX: E11.42 Type 2 diabetes mellitus with diabetic polyneuropathy (principal); S72.141D Displaced intertrochanteric fracture of right femur, subsequent encounter for closed fracture with routine healing; Z47.89 Encounter for other orthopedic aftercare; M62.561 Muscle wasting and atrophy, not elsewhere classified, right lower leg; E78.5 Hyperlipidemia, unspecified
CPT/HCPCS: 36415; 80048; 80061; 85025